=== PATIENT | female | born 1955 | race Caucasian/White ===

== ENCOUNTER 2018-03-13 15:00 | Emergency (ER) | payer OTHER, SELFPAY ==
[2018-03-13 15:09] VITALS: BP 118/67; PULSE 82; RESP 18; TEMP 36.8; O2SAT 95
[2018-03-13] MEDS: Tetracaine 0.5% 4 ML BTL (15:50)
--- NOTE | 2018-03-13 16:25 | ED.GENADUL ---
Disposition Clinical Impression: Corneal abrasion, right Disposition: HOME Condition: Fair Instructions: Corneal Abrasion (ED) Additional Instructions: Use erythromycin ointment as prescribed. Please follow-up with ophthalmology tomorrow. If you develop increased pain, pain around the eye, visual changes, fevers/chills or other new/worsening symptoms please seek care urgently once again. [facility] Forms: Work Release Medical Decision Making - Medical Decision Making Patient presents today with chief complaint of right eye pain. States that the pain came on suddenly when she awoke in the middle of the night. Feels that her eyes are chronically dry at night and associates this with the use of CPAP machine. States that she frequently has difficulty opening her eyes but typically does not have this much discomfort. On exam, patient was noted to be tearing. Conjunctiva is injected. Tetracaine drops were instilled which immediately resolved patient's discomfort. Extraocular movements are intact and were nonpainful. She is at her vision is slightly blurry. Nursing staff does note for the right eye to be 20/50 compared to 20/25 with correction on the contralateral side. Right eye was instilled with fluorescein dye exam with slit lamp. Patient has a corneal abrasion directly over the pupil. This was able to be seen without the need of the slit-lamp. It appears to be approximately 3 mm x 3 mm in diameter. No dendritic lesions. No punctate lesions. Patient does not have a rash. She is afebrile and nontoxic-appearing. This most consistent with corneal abrasion. Patient will be treated with erythromycin ointment. [facility] will contact [facility] tomorrow morning to schedule follow-up as soon as possible. We discussed new/worsening symptoms when to seek care urgently once again. All her questions and concerns were addressed she is in agreement with this plan. I also discussed the use of nighttime lubricating drops to prevent further damage to her eyes.. Advised that she discuss this further with ophthalmology tomorrow. History of Present Illness - General Chief complaint: EyeProblem Stated complaint: RT EYE PAIN Time Seen by Provider: 03/13/18 16:25 Source: patient, RN notes reviewed Mode of arrival: ambulatory Limitations: no limitations - History of Present Illness Initial comments: Patient is 62-year-old female presenting today with chief complaint of right eye pain. Patient reports she has difficulty with her eyes sticking at night. She associates this with the use of the CPAP and the air blowing on her eyes. States that she typically has to open her eyes very carefully. However, she awoke in the middle of the night last night and quickly opened her eyes. States that she had a sudden onset of pain in the right eye. Since then she has had eye discomfort, cranial injection and tearing. States that her vision has been slightly blurred. Patient does wear glasses at baseline. Does not wear any contacts. Denies any fevers or chills. Has had photophobia. Denies pain with movement of the eye. Denies having had issues like this historically. - Related Data Aspirin [Aspir 81] 81 mg PO DAILY tab-cap 10/19/12 Multivitamin [Multi-Vitamin Daily] 1 each PO DAILY 06/05/15 Acetaminophen 1,000 mg PO Q6H PRN tab-cap 09/29/16 Spironolactone 12.5 mg PO DAILY #45 tab-cap 05/31/17 Atorvastatin Calcium 10 mg PO DAILY #90 tab-cap 07/01/17 Nystatin Powder 60 GM [Mycostatin Powder] 1 tulio TP DAILY PRN #1 bottle 07/21/17 Losartan [Cozaar] 25 mg PO DAILY #90 tab-cap 09/06/17 Bupropion HCl [Bupropion HCl Sr] 150 mg PO BID #180 tab-cap 02/16/18 Metoprolol [Lopressor] 25 mg PO BID #180 tab-cap 02/18/18 Allergies Allergy/AdvReac Type Severity Reaction Status Date / Time No Known Allergies Allergy Unverified 07/21/17 15:08 Review of Systems Constitutional: no symptoms reported. denies: chills, fever Eyes: as per HPI ENT: denies: ear pain, congestion Respiratory: no symptoms reported Gastrointestinal: denies: nausea, vomiting Skin: denies: rash, lesions, change in color Neurological: denies: headache Past Medical History - Past Medical History Medical history: hypertension Currently, NICOLAS, neutropenia, cardiomegaly, essential tremor Psychiatric history: depression General Exam - General Limitations: no limitations General appearance: alert, in no apparent distress - Head Head exam: Present: atraumatic - Eye Eye exam: Present: PERRL, EOMI, conjunctival injection. Absent: normal apperance (Right eye is injected. The lid appears slightly swollen. EOMs intact. Pupils are equal round and reactive.), scleral icterus, nystagmus, periorbital tenderness Pupils: Present: normal accommodation - ENT ENT exam: Present: normal exam - Respiratory Respiratory exam: Absent: respiratory distress - Neurological Exam Neurological exam: Present: alert, normal gait - Psychiatric Psychiatric exam: Present: normal affect, normal mood - Skin Skin exam: Present: warm, dry, normal color Course Vital Signs - 24 hr 03/13/18 15:09 Temperature 36.8 C Pulse 82 Respiratory 18 Rate Blood Pressure 118/67 Pulse Oximetry 95
[2018-03-13] MEDS: Erythromycin Ophth Oint 3.5 GM TUBE 1 GM OD (16:28)
== END 2018-03-13 16:35 | disposition home or self-care (01) ==
LOC: ER 04-18 16:18
PROVIDERS: Emergency Provider Physician Assistant; PCP Nurse Practitioner Family
DX: S05.01XA Injury of conjunctiva and corneal abrasion without foreign body, right eye, initial encounter (principal); X58.XXXA Exposure to other specified factors, initial encounter; G47.33 Obstructive sleep apnea (adult) (pediatric); Z99.89 Dependence on other enabling machines and devices; I10 Essential (primary) hypertension
CPT/HCPCS: 99284; 99283

== ENCOUNTER 2019-02-09 15:22 | Outpatient (CLI) | payer OTHER, SELFPAY ==
[2019-02-09 15:48] LABS: HCT 39.8 % (36.0-46.0); HGB 13.2 g/dL (12.0-15.5); Mean Corp. HGB Concentration 33.2 g/dL (32.0-36.0); Mean Corpuscular Hemoglobin 32.9 pg (27.0-33.0); Mean Corpuscular Volume 99.3 fL (80-95); Mean Platelet Volume 8.4 fL (8.0-11.0); Platelet Count 250 x1000/uL (130-400); RBC 4.01 m/cumm (4.00-5.20); RBC Distribution Width 12.1 % (11.7-14.6); White Blood Cell Count 2.43 k/cumm (4.4-10.8)
[2019-02-09 16:37] LABS: ALT 23 U/L (12-78); AST 21 U/L (15-37); Albumin 3.5 g/dL (3.4-5.0); Alkaline Phosphatase 109 U/L (46-116); Anion Gap 12.8 mmol/L (3-11); BUN 12 mg/dL (7-18); Bilirubin, Total 0.2 mg/dL (0.2-1.0); CO2 24.2 mmol/L (21.0-32.0); CREATININE 0.92 mg/dL (0.55-1.02); Calcium 9.1 mg/dL (8.5-10.1); Calculated LDL 82 mg/dL; Chloride 106 mmol/L (98-107); Cholesterol 182 mg/dL (50-200); Glucose 143 mg/dL (70-100); HDL Cholesterol 51 mg/dL (40-60); Sodium 143 mmol/L (136-145); Total Protein 7.2 g/dL (6.4-8.2); Triglyceride 249 mg/dL (30-150)
[2019-02-09 18:10] LABS: Absolute Basophil Count 0.02 k/cumm (0.0-0.2); Absolute Lymphocyte Count 1.31 k/cumm (1.2-3.4); Absolute Monocyte Count 0.05 k/cumm (0.11-0.7); Absolute Neutrophil Count 1.04 k/cumm (1.2-6.7); Atypical Lymphocytes % 5; Diff Comment Manual Differential; RBC Morphology Normal
== END 2019-02-09 15:42 ==
PROVIDERS: PCP Nurse Practitioner Family; Visit Provider Nurse Practitioner Family
DX: E78.5 Hyperlipidemia, unspecified (principal); D70.9 Neutropenia, unspecified; I10 Essential (primary) hypertension
CPT/HCPCS: 36415; 80053; 80061; 83721; 85025

== ENCOUNTER 2019-05-01 08:02 | Outpatient (CLI) | payer OTHER, SELFPAY | END 2019-05-01 08:22 | PROVIDERS: PCP Nurse Practitioner Family; Visit Provider Internal Medicine Interventional Cardiology | DX: I42.9 Cardiomyopathy, unspecified (principal); I48.91 Unspecified atrial fibrillation; I10 Essential (primary) hypertension; R00.2 Palpitations; Z95.2 Presence of prosthetic heart valve | CPT/HCPCS: 93005; 93010 ==

== ENCOUNTER 2019-05-12 06:10 | Day surgery (SDC) | payer OTHER, SELFPAY ==
[2019-05-12 06:24] VITALS: BP 134/70; PULSE 91; RESP 18; TEMP 36.2; O2SAT 95
[2019-05-12] MEDS: Lactated Ringers 1,000 ML 80 ML IV (07:00)
--- NOTE | 2019-05-12 08:07 | PDOC.DSDIS_ITS ---
Discharge Plan Disposition Patient Disposition: HOME Condition: Good Discharge Details Reason For Visit: Colonoscopy Attending Provider: Helena Gregorio Primary Care Provider: Deborah Quiroga Home Meds and New Rx's Prescriptions: Continued amoxicillin 500 mg capsule 2,000 mg PO ONCE RF: 0 metronidazole 1 % gel 1 applic TP DAILY Qty: 60 RF: 0 losartan 25 mg tablet 25 mg PO DAILY Qty: 90 RF: 3 aspirin [Aspir-81] 81 MG tablet,delayed release (DR/EC) 81 mg PO DAILY RF: 0 multivitamin [Daily Multi-Vitamin] 1 EACH tablet 1 ea PO DAILY RF: 0 acetaminophen 500 MG tablet 1,000 mg PO Q6H PRN RF: 0 nystatin 60 GM powder 1 tulio Topical DAILY PRNQty: 1 RF: 3 spironolactone 25 mg tablet 12.5 mg PO DAILY Qty: 45 RF: 3 atorvastatin 10 mg tablet 10 mg PO DAILY Qty: 90 RF: 3 bupropion HCl (smoking deter) 150 mg tablet extended release 12 hr 150 mg PO BID Qty: 180 RF: 3 metoprolol tartrate 25 mg tablet 25 mg PO BID Qty: 180 RF: 3 Discharge Instructions Additional Instructions: Findings: One small polyp was removed. My office will send a letter with biopsy results. Diverticulosis was present. Follow up: Plan for colonoscopy in 5 years. Please call if you develop: fevers >101.5 Nausea or Vomiting Abdominal pain that is not transient DAY SURGERY UNIT POST COLONOSCOPY INSTRUCTIONS 1. Because there will be medication in your system for the next 24 hours, you may feel a little sleepy. Your coordination will be affected. Therefore: a. Do not drive or operate dangerous equipment for 24 hours. b. Do not drink alcohol beverages for 24 hours (not even beer). c. Plan to go home and rest for the day. 2. Generally there are no restrictions on your activity after a day or so has gone by, but you may feel a bit fatigued for a few days. 3 After you arrive home you may have a light meal and return to a normal diet as you can tolerate it without feeling sick to your stomach. 4. After surgery, you may feel pain or discomfort. This should be only transient, but if it persists please contact your doctor. 5. If there are any questions regarding the findings of your procedure, please feel free to contact your doctor. 6. If you are unable to contact your doctor with a problem, contact the [facility] at [phone]. 9. Continue all your regular medications unless directed otherwise. I understand the above instructions and have no questions. Signature of Patient or Responsible Adult Escort Date/Time Name of Responsible Adult Escort Signature of Nurse Date/Time Activity:: Activity as Tolerated Diet:: As Tolerated Discharge Orders Discharge Orders: Discharge Order (Routine); Ordered 05/12/19 Ordered By: Helena Gregorio DS: Diagnosis Discharge Diagnosis (1) Colon polyp: Status: Acute (2) Diverticulosis: Status: Acute
[2019-05-12 08:35] VITALS: BP 120/67; PULSE 78; RESP 15; TEMP 36.4; O2SAT 97
--- NOTE | 2019-05-12 08:45 | BOWEL_PTH ---
PATIENT: Purnima Thacker LOC: [facility] U#:[id number] AGE/SX: 63/F ROOM: RE05/12/[address]: Helena Gregorio MD : [id number] BED: DIS: 05/12/2019 SPEC #: [id number] RECD: 05/12/19 12:39 STATUS: PAUL REQ #: [id number] LUCIO: 05/12/19 08:[address]: Helena Gregorio DEPT: Surgical Specimen RECD BY: Jacki Fermin ENTERED: 05/12/19 12:40 SP TYPE: Bowel OTHR DR: Deborah Quiroga APRN Tissues: 1 - BIOPSY BOWEL Procedures: GROSS AND MICRO LEVEL 4 Comments: [id number]
--- NOTE | 2019-05-12 10:51 | COLE_ITS ---
DATE OF PROCEDURE: May 12, 2019 PREOPERATIVE DIAGNOSIS: History of colon polyps. POSTOPERATIVE DIAGNOSIS: 1. Cecal polyp. 2. Diverticulosis. PROCEDURE: Colonoscopy with cold forceps polypectomy. SURGEON: Helena Gregorio M.D. ANESTHESIA: General. INDICATIONS: This is a 63-year-old woman whose colonoscopy in 2013 was normal but incomplete. The s cope could not be advanced beyond the hepatic flexure. She reports a history of polyps with her firs t colonoscopy around age 50. She is asymptomatic and has no family history of colon cancer. PROCEDURE: She was placed in the left Johnson position. Propofol was titrated to sedation. Digital re ctal examination revealed no abnormalities with the exception of some prominent mixed hemorrhoids. T he scope was advanced to the cecum with a small amount of abdominal pressure required. There was a d iminutive polyp in the vicinity of the appendiceal orifice that was removed completely with a cold fo rceps. The scope was slowly withdrawn with scattered diverticulosis noted throughout the colon, but more prominently in the sigmoid region. The rectum was normal, including on retroflex view. She thom erated the procedure well and was stable to recovery. If the polyp is adenomatous she will need a fo llow-up colonoscopy again in five years. cc: Deborah Quiroga N.P.
== END 2019-05-12 09:10 | disposition home or self-care (01) ==
PROVIDERS: PCP Nurse Practitioner Family; Visit Provider Surgery
PROC: 0DJD8ZZ Inspection of Lower Intestinal Tract, Via Natural or Artificial Opening Endoscopic (ICD-10-PCS; CPT 45378; principal; 2019-05-12 07:30)
DX: Z12.11 Encounter for screening for malignant neoplasm of colon (principal); D12.0 Benign neoplasm of cecum; K57.30 Diverticulosis of large intestine without perforation or abscess without bleeding; K64.0 First degree hemorrhoids; I10 Essential (primary) hypertension; G47.33 Obstructive sleep apnea (adult) (pediatric)
CPT/HCPCS: 45380; 88305; J2250; J3010

== ENCOUNTER 2020-02-16 10:01 | Outpatient (CLI) | payer OTHER, SELFPAY ==
[2020-02-22 22:24] LABS: SARS-CoV-2 RNA Undetected (Undetected); SARS-CoV-2 Specimen Source Nasopharynx
== END 2020-02-16 10:21 ==
PROVIDERS: PCP Nurse Practitioner Family; Visit Provider Nurse Practitioner Family
DX: J02.9 Acute pharyngitis, unspecified (principal)
CPT/HCPCS: U0003

== ENCOUNTER 2020-02-28 02:56 | Outpatient (CLI) | payer OTHER, SELFPAY ==
[2020-02-28 07:51] LABS: Abs Immature Grans 0.01 10^3/uL (0.0-0.06); Absolute Basophil Count 0.01 10^3/uL (0.0-0.2); Absolute Eosinophil Count 0.01 10^3/uL (0.0-0.7); Absolute Lymphocyte Count 0.95 10^3/uL (1.2-3.4); Absolute Monocyte Count 0.29 10^3/uL (0.1-0.8); Absolute Neutrophil Count 2.24 10^3/uL (1.2-6.7); Basophils % 0.3; Eosinophils % 0.3; HCT 36.3 % (36.0-46.0); HGB 12.4 g/dL (11.2-15.7); Immature Grans % 0.3; Lymphocytes % 27.1; MCH 33.2 pg (27.0-33.0); MCHC 34.2 % (32.0-36.0); MCV 97.3 fL (80-95); MPV 8.6 fL (8.0-11.0); Monocytes % 8.3; Neutrophils % 63.7; Platelet Count 182 10^3/uL (130-400); RBC 3.73 10^6/uL (3.93-5.22); RDW 12.2 % (11.7-14.6); RDW-SD 43.5 fL; WBC 3.51 10^3/uL (4.4-10.8)
[2020-02-28 09:18] LABS: ALT 28 U/L (14-59); AST 19 U/L (15-37); Albumin 3.5 g/dL (3.4-5.0); Alkaline Phosphatase 111 U/L (46-116); Anion Gap 10.9 mmol/L (3-11); BUN 16 mg/dL (7-18); Bilirubin, Total 0.2 mg/dL (0.2-1.0); CO2 25.1 mmol/L (21.0-32.0); CREATININE 1.02 mg/dL (0.55-1.02); Calcium 8.9 mg/dL (8.5-10.1); Calculated LDL 79 mg/dL (<100); Chloride 106 mmol/L (98-107); Cholesterol 179 mg/dL (<200); Estimated GFR 54.56 (mL/min/1.73m2); Glucose 109 mg/dL (74-106); HDL Cholesterol 50 mg/dL (40-60); Potassium 4.2 mmol/L (3.5-5.1); Sodium 142 mmol/L (136-145); Total Protein 7.3 g/dL (6.4-8.2); Triglyceride 254 mg/dL (<150)
== END 2020-02-28 03:16 ==
PROVIDERS: PCP Nurse Practitioner Family; Visit Provider Nurse Practitioner Family
DX: I10 Essential (primary) hypertension; E78.5 Hyperlipidemia, unspecified
CPT/HCPCS: 36415; 80053; 80061; 85025

== ENCOUNTER 2020-03-27 01:02 | Outpatient (CLI) | payer OTHER, SELFPAY ==
--- NOTE | 2020-03-27 14:01 | DI.US_ITS ---
APPROVED REPORT EXAM: Comprehensive 2D, Doppler, and color-flow Echocardiogram Patient Location: Out-Patient Salesperson Hearing Aids: Ayleen Hopkins RDCS (AE) Indications: Cardiomyopathy, Aortic Stenosis, Bio AVR Other Information Study Quality: Adequate Conclusion Left Ventricle : The left ventricle is normal size. The left ventricular systolic function is normal. The left ventricular ejection fraction is within the normal range. Borderline concentric left ventri cular hypertrophy. There is normal LV segmental wall motion. The left ventricular diastolic function is normal. LVEF is 57%. Right Ventricle : The right ventricle is normal size. The right ventricular systolic function is norm al. The RVSP is 17.1mmHg. Atria : The left atrium size is normal. The right atrium size is normal. Aortic Valve : Bioprosthetic aortic valve is present. No aortic regurgitation is present. No hemodyna mically significant valvular aortic stenosis. Mitral Valve : Moderate mitral annular calcification. No evidence of mitral valve stenosis. Moderate mitral regurgitation. Great Vessels : The aortic root is normal in size. The ascending aorta is normal in size. IVC is norm al in size and collapses >50% with inspiration. Compared to study from 01/10/2018: There is no significant change. Wall motion Left Ventricle The left ventricle is normal size. The left ventricular systolic function is normal. The left ventric ular ejection fraction is within the normal range. Borderline concentric left ventricular hypertrophy . There is normal LV segmental wall motion. The left ventricular diastolic function is normal. There is no ventricular septal defect visualized. LVEF is 57%. Right Ventricle The right ventricle is normal size. The right ventricular systolic function is normal. The RVSP is 17 .1mmHg. Atria The left atrium size is normal. The right atrium size is normal. The interatrial septum is intact wit h no evidence for an atrial septal defect. Aortic Valve No hemodynamically significant valvular aortic stenosis. No aortic regurgitation is present. Bioprost hetic aortic valve is present. Mitral Valve Moderate mitral annular calcification. No evidence of mitral valve stenosis. Moderate mitral regurgit ation. Tricuspid Valve The tricuspid valve is normal in structure. There is no tricuspid valve stenosis. Trace tricuspid reg urgitation. Pulmonic Valve The pulmonary valve is normal in structure. There is no pulmonic valvular stenosis. Trace pulmonic re gurgitation. Great Vessels The aortic root is normal in size. The ascending aorta is normal in size. IVC is normal in size and c ollapses >50% with inspiration. Pericardium There is no pericardial effusion. 2D Dimensions IVSD d PLAX 1.08 cm F: 0.6-1.0 LV Vol A2C d MOD 64.9 mL LVPW d PLAX 1.06 cm F: 0.6 - 1.0 LV Vol A4C d MOD 74.5 mL LVID d PLAX 4.11 cm F: 3.8 - 5.2 LA vol/ BSA A2C s A-L 24.6 mL/m2 LVDs 3.00 cm F: 2.2 - 3.5 LA vol/ BSA A4C s A-L 20.3 mL/m2 Ao Root d 3.03 cm F: 2.7 - 3.3 LA Vol/ BSA Biplane s A-L 23.1 mL/m2 RA Area A4C 14.89 cm2 LA Area A4C s MOD 15.43 cm2 RA Vol/ BSA A4C s A-L 19.2 mL/m2 LA Area A2C s MOD 17.61 cm2 Ao Asc Diam d 3.09 cm F: 2.3 - 3.1 LV EF A4C MOD 55.2 % LV EF Teichholz 52.5 % LV EF A2C MOD 57.0 % LVEF (Samuel's) 54.50 % F: 54 - 74 LV EF Biplane MOD 54.5 % LV Volume 51.92 mL F: 46 - 106 SV 37.85 mL LV Volume Index 25.70 mL/m2 F: 29 - 61 SV Index 18.74 mL/m2 LV Vol Biplane MOD 69.5 mL FS 26.55 % M-Mode TAPSE 1.46 cm (M/F) >1.7 LV Diastology MV E' medial 0.053 (>0.07 m/s) E/A Ratio 0.8 LV E/e MED 13.00 (<14) MV E Vmax 0.69 (0.4-1.3 m/s) MV E' lateral 0.084 (>0.1 m/s) MV A Vmax 0.85 (0.4-1.3 m/s) LV E/e LAT 8.20 (<14) MV E/A Ratio 0.77 MV E/E' medial 13.04 MV E/E' lateral 8.23 Aortic Valve LVOT Area 3.23 cm2 AoV Area Vmax 1.51 cm2 LVOT Vmax 0.82 m/s AoV Area/ BSA (Vmax) 0.75 cm2/m2 LVOT Mean Donal. 0.49 m/s GEOVANNA Mean Donal. 1.20 cm2 LVOT Peak Grad 2.7 mmHg GEOVANNA Mean Donal. Index 0.60 cm2/m2 LVOT Mean Grad 1.1 mmHg LVOT VTI 0.132 m LVOT Diam s 2.00 cm AoV Vmax 1.75 m/s Velocity Ratio 0.46 AoV Mean Donal. 1.32 m/s AoV Peak Grad 12.3 mmHg LVOT SV 42.64 mL AoV Mean Grad 7.7 mmHg AoV VTI 0.318 m AoV Area VTI 1.34 cm2 AoV Area/ BSA (VTI) 0.66 cm/m2 Mitral Valve MV DT 271 (160-240 msec) MR Vmax 5.31 m/s MV PHT 78 msec MR VTI 1.622 m MV Area PHT 2.80 cm2 MR Peak Grad 112.9 mmHg MV VTI 0.214 m MR Mean Grad 80.6 mmHg MV Area VTI 1.99 (4.0-6.0 cm2) MR PISA Radius 0.42 cm MR EROA 0.07 cm2 MR Aliasing Velocity 0.35 m/s MR PISA 1.11 cm2 Pulmonary Valve PV Vmax 1.16 (0.5-1.5 m/s) RVOT Peak Gr. 1.46 mmHg PV Peak Grad 5.4 mmHg RVOT Mean Gr. 0.70 mmHg PV Mean Grad 2.2 mmHg RVOT VTI 0.114 m PV VTI 0.165 m RVOT Vmax 0.61 m/s Tricuspid Valve TR Peak Grad 14.0 mmHg TR Vmax 1.88 m/s RA Pressure 3.00 mmHg RVSP (TR) 17.1 mmHg
== END 2020-03-27 01:22 ==
PROVIDERS: PCP Nurse Practitioner Family; Visit Provider Internal Medicine Cardiovascular Disease
DX: I35.0 Nonrheumatic aortic (valve) stenosis (principal); I42.9 Cardiomyopathy, unspecified; Z95.3 Presence of xenogenic heart valve; I34.0 Nonrheumatic mitral (valve) insufficiency
CPT/HCPCS: 93306

== ENCOUNTER → 2021-02-28 11:27 | Outpatient (BNVA) | payer MEDICARE, BC, SELFPAY | PROVIDERS: PCP Nurse Practitioner Family; Referring Provider Nurse Practitioner Family; Visit Provider Internal Medicine Cardiovascular Disease | DX: I34.0 Nonrheumatic mitral (valve) insufficiency (principal); G25.0 Essential tremor; I10 Essential (primary) hypertension; Z95.4 Presence of other heart-valve replacement | CPT/HCPCS: 99214; 99213 ==

== ENCOUNTER 2021-04-29 03:54 | Outpatient (CLI) | payer MEDICARE, BC, SELFPAY ==
[2021-04-29 08:07] LABS: Abs Immature Grans 0.02 10^3/uL (0.0-0.06); Absolute Basophil Count 0.02 10^3/uL (0.0-0.2); Absolute Eosinophil Count 0.02 10^3/uL (0.0-0.7); Absolute Monocyte Count 0.29 10^3/uL (0.1-0.8); Basophils % 0.4; Eosinophils % 0.4; HCT 37.9 % (36.0-46.0); HGB 12.4 g/dL (11.2-15.7); Immature Grans % 0.4; Lymphocytes % 17.2; MCH 32.3 pg (27.0-33.0); MCHC 32.7 % (32.0-36.0); MCV 98.7 fL (80-95); MPV 8.9 fL (8.0-11.0); Monocytes % 6.2; Neutrophils % 75.4; Nucleated RBC 0 %; Platelet Count 195 10^3/uL (130-400); RBC 3.84 10^6/uL (3.93-5.22); RDW-SD 43.6 fL; WBC 4.65 10^3/uL (4.4-10.8)
[2021-04-29 08:22] LABS: Hemoglobin A1C 6.5 % (<5.7)
[2021-04-29 08:39] LABS: ALT 30 U/L (14-59); AST 22 U/L (15-37); Albumin 3.5 g/dL (3.4-5.0); Alkaline Phosphatase 105 U/L (46-116); Anion Gap 10.6 mmol/L (3-11); BUN 17 mg/dL (7-18); Bilirubin, Total 0.4 mg/dL (0.2-1.0); CO2 26.4 mmol/L (21.0-32.0); CREATININE 1.1 mg/dL (0.55-1.02); Calcium 8.8 mg/dL (8.5-10.1); Calculated LDL 89 mg/dL (<100); Chloride 104 mmol/L (98-107); Cholesterol 179 mg/dL (<200); Estimated GFR 49.85 (mL/min/1.73m2); Glucose 118 mg/dL (74-106); HDL Cholesterol 53 mg/dL (40-60); Potassium 4.3 mmol/L (3.5-5.1); Sodium 141 mmol/L (136-145); Total Protein 7.6 g/dL (6.4-8.2); Triglyceride 185 mg/dL (<150)
== END 2021-04-29 03:55 | disposition home or self-care (01) ==
LOC: LBO 03:54
PROVIDERS: PCP Nurse Practitioner Family; Visit Provider Nurse Practitioner Family
DX: I10 Essential (primary) hypertension (principal); E78.5 Hyperlipidemia, unspecified; D70.9 Neutropenia, unspecified; R73.01 Impaired fasting glucose
CPT/HCPCS: 36415; 80053; 80061; 83036; 85025

== ENCOUNTER 2021-05-09 09:04 | Emergency (ER) | payer MEDICARE, BC, SELFPAY ==
[2021-05-09 09:20] VITALS: BP 145/86; PULSE 90; RESP 20; TEMP 36; O2SAT 97
--- NOTE | 2021-05-09 09:30 | RT.EKG_ITS ---
APPROVED REPORT Exam: Resting ECG Reason for Exam: weakness Patient Location: E HR:83 bpm ECG Measurements Heart Rate 83 AXIS RI 157 P 34 QRSd 109 QRS 13 QT 374 T -33 QTc 440 Conclusion Sinus rhythm Low voltage, precordial leads. Nonspecific T abnormalities, diffuse leads.
--- NOTE | 2021-05-09 09:30 | DI.RAD_ITS ---
Exam(s) XR CHEST 2V PA LATERAL EXAM: XR CHEST 2V PA LATERAL CLINICAL HISTORY: weakness TECHNIQUE: COMPARISON: CR CHEST 2 VIEWS PA,LAT from 10/14/2016 FINDINGS: Heart is not enlarged. There is an aortic valve prosthesis. Lungs are generally clear. No pleural effusion. IMPRESSION: No evidence of acute process. RADIATION DOSE DELIVERED: Total DLP
--- NOTE | 2021-05-09 09:30 | DI.CT_ITS ---
Exam(s) CT HEAD - STROKE PROTOCOL EXAM: CT HEAD - STROKE PROTOCOL CLINICAL HISTORY: L leg weakness. TECHNIQUE: Imaging Protocol: Axial computed tomography images with coronal and sagittal reformatted images were created and reviewed COMPARISON: No exams were available for comparison FINDINGS: The ventricular system is normal in appearance. No evidence of acute intracranial hemorrhage, mass effect, or midline shift. The orbital structures are unremarkable. The temporal bone structures appear intact. Calvarium: Normal. Visualized Paranasal sinuses/Mastoids: Clear. IMPRESSION: Normal cranial CT. RADIATION DOSE DELIVERED: 692.4mGy.cm Total DLP 692.4mGy.cm Total DLP CTDIvol DATA REPOSITORY: All CT scans at this facility are submitted to the National Radiology Data Registry (NRDR) Dose Index Registry (DIR) with the [employer] (ACR). RADIATION OPTIMIZATION: All CT scans at this facility use at least one of these dose optimization te chniques: automated exposure control; mA and/or kV adjustment per patient size (includes targeted exa ms where dose is matched to clinical indication); or iterative reconstruction.
--- NOTE | 2021-05-09 09:44 | W.ED.GENAD ---
Discharge Plan Disposition Patient Disposition: HOME Condition: Stable Discharge Details Clinical Impression: Heavy sensation of lower extremity, Acute UTI Primary Care Provider: Deborah Quiroga ED Provider: Lamont Moya Home Meds and New Rx's Prescriptions: New cephalexin 500 mg capsule 500 mg PO BID Qty: 10 RF: 0 Continued amoxicillin 500 mg capsule 2,000 mg PO ONCE RF: 0 metronidazole 1 % gel 1 applic TP DAILY Qty: 60 RF: 0 aspirin [Aspir-81] 81 MG tablet,delayed release (DR/EC) 81 mg PO DAILY RF: 0 multivitamin [Daily Multi-Vitamin] 1 EACH tablet 1 ea PO DAILY RF: 0 acetaminophen 500 MG tablet 1,000 mg PO Q6H PRN RF: 0 nystatin 60 GM powder 1 tulio Topical DAILY PRNQty: 1 RF: 3 atorvastatin 10 mg tablet 10 mg PO DAILY Qty: 90 RF: 3 spironolactone 25 mg tablet 12.5 mg PO DAILY Qty: 45 RF: 3 losartan 25 mg tablet 25 mg PO DAILY Qty: 90 RF: 3 bupropion HCl [Wellbutrin SR] 150 mg tablet sustained-release 12 hr 150 mg PO BID Qty: 180 RF: 3 doxycycline hyclate 50 mg tablet 50 mg PO DAILY RF: 0 metronidazole 0.75 % gel 1 applic topical BID RF: 0 metoprolol tartrate 25 mg tablet 25 mg PO BID Qty: 180 RF: 3 Discharge Instructions Instructions: Urinary Tract Infection in Women (ED) Additional Instructions: CT imaging and laboratory values do not reveal any obvious emergent process. Your urinalysis does reveal leuk esterase and 10-20 white cells, will treat for mild UTI, Keflex as directed. Please watch for new or worsening symptoms and return to the ER for any concerns. As we discussed I strongly recommend reaching out your primary care provider later today to discuss your ER visit need for outpatient reevaluation. Additional imaging of your brain and/or lower back may be indicated for further evaluation of your symptoms. Medical Decision Making 65-year-old female, multiple comorbidities, presenting to the ER today complaining of a sensation of left leg heaviness. She states that she went to bed last night asymptomatic but did do a moderate amount of yard work which is atypical yesterday. Upon awaking this morning her left leg felt heavy, wobbly, but denies any leg discomfort, numbness, tingling, weakness, bowel or bladder incontinence, midline back tenderness. Patient states this morning in the shower she bent over and did feel a small amount of lower back pain. Clinically she appears well, nontoxic, neurologically intact. She denies any headache, visual changes, neck pain, chest pain, etc. She contacted the office of her primary care provider and they recommended coming to the ER for stroke work-up. Clinically she is neurologically intact, 5 out of 5 strength, ambulates without difficulty, there is no focal neurologic deficit. Will obtain a cardiac work-up, given the timeline I do believe a single troponin is reasonable and will obtain a CT of her head stroke protocol. Patient is comfortable with this plan and has no additional questions or concerns. Clinically again she is neurologically intact, afebrile, no clinical evidence of DVT or cauda equina. Normal pedal pulses and capillary refill. CT imaging of brain unremarkable per radiology. Patient was witnessed ambulating slowly but steadily without assistance to the restroom Remains neurologically intact. Laboratory values do not reveal any obvious emergent process. White blood cell count of 3.93 hemoglobin 12 hematocrit 36.5 platelet count 198. Electrolytes unremarkable, creatinine 1.1 with a GFR of 49.85 glucose 124 magnesium 1.8 LFTs unremarkable, troponin less than 0.05, urinalysis with trace leukoesterase, 10-20 white cells. Chest x-ray unremarkable Given her urination today on the way to the restroom, in the setting of leuk esterase, 10-20 white cells, will give 5-day treatment for UTI. Discussed work-up with patient. She continues to have a subjective sensation of a heaviness to her left leg otherwise is asymptomatic. Again 5 out of 5 strength, neurologically intact. We discussed that she may require outpatient MRI of her brain for further evaluation of her symptoms, however further evaluation of her lower back may also be indicated. Patient is comfortable discharge and has no additional questions or concerns. She plans to contact her primary care provider tomorrow to discuss her ongoing symptoms and need for outpatient reevaluation. Otherwise she will return to the ER for new or worsening symptoms This documentation was generated using [employer] system, please disregard any oddities of phrase or misspellings. Medical Records Medical records reviewed: Yes I reviewed the patient's medical records. Imaging Data Radiologic Study: Attestation: I personally reviewed and interpreted this imaging study as follows: Imaging: CT Scan Radiologist's impression: Exam(s) CT HEAD - STROKE PROTOCOL EXAM: CT HEAD - STROKE PROTOCOL CLINICAL HISTORY: L leg weakness. TECHNIQUE: Imaging Protocol: Axial computed tomography images with coronal and sagittal reformatted images were created and reviewed COMPARISON: No exams were available for comparison FINDINGS: The ventricular system is normal in appearance. No evidence of acute intracranial hemorrhage, mass effect, or midline shift. The orbital structures are unremarkable. The temporal bone structures appear intact. Calvarium: Normal. Visualized Paranasal sinuses/Mastoids: Clear. IMPRESSION: Normal cranial CT. Radiologic Study #2: Attestation: I personally reviewed and interpreted this imaging study as follows: Imaging: X-Ray Radiologist's impression: Exam(s) XR CHEST 2V PA LATERAL EXAM: XR CHEST 2V PA LATERAL CLINICAL HISTORY: weakness TECHNIQUE: COMPARISON: CR CHEST 2 VIEWS PA,LAT from 10/14/2016 FINDINGS: Heart is not enlarged. There is an aortic valve prosthesis. Lungs are generally clear. No pleural effusion. IMPRESSION: No evidence of acute process Lab Data Lab results reviewed: Yes I reviewed the patient's lab results. Labs: 05/09/21 10:16 Urine - Reflex from Ua Urine Culture - Pending Laboratory Tests Range/Units 05/09/21 05/09/21 05/09/21 09:56 09:56 10:16 WBC (4.4-10.8) 10^3/uL 3.93 L RBC (3.93-5.22) 10^6/uL 3.71 L Hgb (11.2-15.7) g/dL 12.0 Hct (36.0-46.0) % 36.5 MCV (80-95) fL 98.4 H MCH (27.0-33.0) pg 32.3 MCHC (32.0-36.0) % 32.9 RDW (11.7-14.6) % 12.0 Plt Count (130-400) 10^3/uL 198 MPV (8.0-11.0) fL 8.6 Immature Gran % 0.5 Neutrophils % 77.3 Lymphocytes % 15.5 Monocytes % 6.1 Eosinophils % 0.3 Basophils % 0.3 Nucleated RBC % % 0 Absolute Neutrophils (1.2-6.7) 10^3/uL 3.04 Absolute Lymphocytes (1.2-3.4) 10^3/uL 0.61 L Absolute Monocytes (0.1-0.8) 10^3/uL 0.24 Absolute Eosinophils (0.0-0.7) 10^3/uL 0.01 Absolute Basophils (0.0-0.2) 10^3/uL 0.01 Sodium (136-145) mmol/L 138 Potassium (3.5-5.1) mmol/L 4.3 Chloride (98-107) mmol/L 104 Carbon Dioxide (21.0-32.0) mmol/L 25.5 Anion Gap (3-11) mmol/L 8.5 BUN (7-18) mg/dL 13 Creatinine (0.55-1.02) mg/dL 1.1 H Estimated GFR/1.73 m2 (mL/min/1.73m2) 49.85 Glucose (74-106) mg/dL 124 H Calcium (8.5-10.1) mg/dL 9.3 Magnesium (1.8-2.4) mg/dL 1.8 Total Bilirubin (0.2-1.0) mg/dL 0.4 AST (15-37) U/L 27 ALT (14-59) U/L 32 Alkaline Phosphatase (46-116) U/L 97 Troponin I (<0.06) ng/mL < 0.05 Total Protein (6.4-8.2) g/dL 8.0 Albumin (3.4-5.0) g/dL 3.5 Urine Color (Yellow) Yellow Urine Clarity (Clear) Clear Urine pH (5-8) 5.5 Ur Specific [place] (1.005-1.025) 1.015 Urine Protein (Negative) mg/dL Negative Urine Ketones (Negative) mg/dL Negative Urine Blood (Negative) Negative Urine Nitrite (Negative) Negative Urine Bilirubin (Negative) Negative Urine Urobilinogen (Up TO 0.2) EU/dL 0.2 Ur Leukocyte Esterase (Negative) Trace H Urine RBC (0-2) HPF Negative Urine WBC (0-5) HPF 10-20 H Ur Epithelial Cells (Negative) HPF Few Urine Crystals (Negative) HPF Negative Urine Bacteria (Negative) HPF Moderate Urine Casts (Negative) LPF Negative Urine Mucus (Negative) Negative Urine Other (Negative) Negative Ur Culture Indicated? Yes Urine Glucose (Negative) mg/dL Negative ECG Data Attestation: I personally reviewed and interpreted this ECG (s) as follows: Interpretation: Please see official report by Dr. Bragg. Sinus rhythm, ventricular rate of 83. No STEMI. Diffuse nonspecific T wave abnormalities HPI General Mode of arrival: ambulatory. Date/Time Provider Initiated Documentation: 05/09/21 09:12. Limitations to Documentation: no limitations. Information obtained by: patient. HPI Narrative: This is a 65-year-old female, past medical history that includes diabetes, hyperlipidemia, cardiomyopathy, depression, hypertension, essential tremor, aortic valve replacement, sleep apnea, obesity, presenting to the ER today for what she describes as left leg heaviness. Patient states that yesterday she raked leaves and did yard work all day which is very atypical for her, lifting, turning, bending, repetitive motion but no obvious trauma. Went to bed last night at around 1130 asymptomatic, reports awaking this morning around 630 feeling like her left leg was heavy but denies any true numbness, tingling, weakness. Patient states that upon standing her leg felt wobbly, she was concerned that she may fall, it took her longer to walk to the restroom and it typically does, she was unable to hold her urine because up with the way to the restroom. She contacted the office of her primary care provider and they recommended coming to the ER for evaluation of potential stroke. Patient denies recent illness or trauma. She denies headache, visual changes, neck pain, facial weakness, chest pain, shortness of breath, abdominal pain, nausea, vomiting, bowel or bladder retention or incontinence, numbness, tingling, weakness, in her extremities, or specifically in her saddle region. She does admit to a baseline essential tremor of the left hand which she states has been progressively worse over the past year. Patient denies history of TIA or CVA, is not anticoagulated. Patient states that this morning while taking a shower with specific movement she did notice a small amount of lower back pain but now cannot reproduce this. Related Data Home Medications Medication Instructions Recorded Confirmed aspirin [Aspir-81] 81 mg PO DAILY tab-cap 10/19/12 05/09/21 multivitamin [Daily Multi-Vitamin] 1 ea PO DAILY 06/05/15 05/09/21 acetaminophen 1,000 mg PO Q6H PRN tab-cap 09/29/16 05/09/21 nystatin 1 tulio TOPICAL DAILY PRN #1 bottle 07/21/17 05/09/21 metronidazole 1 % topical gel 1 applic TP DAILY #60 gm 08/17/18 05/09/21 amoxicillin 500 mg capsule 2,000 mg PO ONCE cap 09/28/18 05/09/21 atorvastatin 10 mg tablet 10 mg PO DAILY #90 tab 05/30/20 05/09/21 spironolactone 25 mg tablet 12.5 mg PO DAILY #45 tab-cap 05/31/20 05/09/21 losartan 25 mg tablet 25 mg PO DAILY #90 tab-cap 07/30/20 05/09/21 bupropion HCl 150 mg tablet,12 hr 150 mg PO BID #180 tab-cap 08/26/20 05/09/21 sustained-release doxycycline hyclate 50 mg tablet 50 mg PO DAILY 11/11/20 05/09/21 metronidazole 0.75 % topical gel 1 applic TOPICAL BID 11/11/20 05/09/21 metoprolol tartrate 25 mg tablet 25 mg PO BID #180 tab-cap 02/20/21 05/09/21 cephalexin 500 mg PO BID #10 cap 05/09/21 Previous Rx's Medication Instructions Recorded metronidazole 1 % topical gel 1 applic TP DAILY #60 gm 08/17/18 atorvastatin 10 mg tablet 10 mg PO DAILY #90 tab 05/30/20 spironolactone 25 mg tablet 12.5 mg PO DAILY #45 tab-cap 05/31/20 losartan 25 mg tablet 25 mg PO DAILY #90 tab-cap 07/30/20 bupropion HCl 150 mg tablet,12 hr 150 mg PO BID #180 tab-cap 08/26/20 sustained-release metoprolol tartrate 25 mg tablet 25 mg PO BID #180 tab-cap 02/20/21 cephalexin 500 mg PO BID #10 cap 05/09/21 Allergies Allergy/AdvReac Type Severity Reaction Status Date / Time No Known Allergies Allergy Verified 05/09/21 09:24 General Stated Complaint: GenMedical KELLY: 3 Review of Systems Constitutional Constitutional: Denies fatigue, Denies fever(s), Denies headache(s) and Denies weakness Eyes Eyes: Denies change in vision ENT Ears, Nose, Mouth, and Throat: Denies headache(s) and Denies neck pain Cardiovascular Cardiovascular: Denies chest pain and Denies dyspnea Respiratory Respiratory: Denies cough and Denies dyspnea Gastrointestinal Gastrointestinal: Denies abdominal pain, Denies constipation, Denies fecal incontinence, Denies nausea and Denies vomiting Genitourinary Genitourinary: Denies dysuria Musculoskeletal Musculoskeletal: Reports back pain, Denies arthralgias, Denies neck pain, Denies numbness, Denies stiffness and Denies tingling Integumentary/Breasts Skin/Breast: Denies rash Neurologic Neurologic: Denies headache(s), Denies numbness, Denies tingling and Denies weakness Endocrine Endocrine: Denies fatigue [facility] Medical History Candidate for statin therapy due to risk of future cardiovascular event (12/13/15) 11/2016 labwork: Pt already on moderate intensity statin therapy --> continue current Rx Cardiomyopathy (01/23/14) [place]ology? [place] 12[place] [facility] [place] [employer] 12/2013 Cardiac cath ordered by Indra 08/22/14 echo: LVEF mildly reduced at 45-50% with moderate LVH & severe aortic stenosis 10/09/2016 echo: LVEF 45-50%, s/p aortic valve repair Chronic idiopathic neutropenia (07/20/16) [place] w[place] [facility] [place]/18/2017 Heme OV note: Go to ER if fevers. If neutropenic during illness, advised use of GCSF. If pt starts to develop infections, they plan to reconsider regular GCSF. Colon polyp Depressive disorder (06/28/13) Long-term Wellbutrin RX Counseling Diverticulosis Essential hypertension (09/19/12) Improved following aortic valve replacement Essential tremor (06/28/13) Hyperlipidemia, unspecified Obesity (06/28/13) 2014: [place] [facility] [place]/2014: Updated plan to work with Noreen Nassar NICOLAS (obstructive sleep apnea) (05/28/14) Sleep study 2013 CPAP , re-eval 09/21/19 Rosacea Severe aortic stenosis S/p AVR 09/21/2016 Type 2 diabetes mellitus (~04/2021) Surgical History Biopsy of breast s/p mammogram; benign Cholecystectomy (06/29/07) Colonoscopy - IV Sedation (10/23/13) Colonoscopy - MAC History of aortic valve replacement (10/14/16) [place]21[place] [facility] [place] [place] bovine aortic valve replacement and aortoplasty for supravalvular stenosis Replacement of aortic valve (09/21/16) [place]oplasty [place]val[place]ular [place] [facility] [place] History Brother Diabetes Heart disease Hypertension Mother Heart disease Father Heart disease Sister Hypertension Social History Smoking/Tobacco Use Status: Never Smoking risk assessment performed?: Yes Alcohol Intake: never Drug use: Never Substance use type: does not use Caregiver/Support person: No Communication Needs: None Do you need help understanding health information?: Rarely 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 Pets and animals: No Do you think of yourself as: straight/heterosexual Current gender identity: female What is your relationship status?: never How often do you talk on the phone with friends or family?: three or more times per week How often do you get together with friends or relatives?: twice per week How often do you attend gnosticism or mosque services?: 1-3 times per year Do you belong to any clubs or organized social groups?: yes Panel score (0-1 are the most socially isolated patients): 2 What type of physical activity do you participate in: none Yadira/Holiness: Confucianism Special yadira needs: No Seatbelt use: always Helmet use: Yes Drive intox or ride w/intox lokie driver: No Water heater temp set <120 deg: Yes Working smoke detector in home: Yes Fire extinguisher in home: Yes Carbon monox detector in home: Yes Firearms in home: No Do you feel safe at home: Yes Exam Const General: cooperative, healthy appearing, comfortable and no acute distress Orientation: alert, awake and oriented x3 HENMT Head: normal to inspection, normocephalic and atraumatic Face and sinus: normal facial exam Mouth: moist mucous membranes Throat: posterior oropharynx normal Eyes General: appearance normal, both eyes and all related structures Alignment and Position: alignment normal Periorbital: periorbital findings normal Eyelids: eyelids normal Conjunctivae: conjunctivae normal Sclera: sclerae normal Cornea: corneas normal Pupils: PERRL EOM: EOM intact bilaterally Direct ophthalmoscopy: normal light reflex Neck Neck: normal visual inspection, full ROM, no meningeal signs, trachea midline, supple and nontender Resp Effort & Inspection: normal respiratory effort and able to speak in complete sentences Auscultation: clear to auscultation bilaterally Cardio Rate: regular rate Rhythm: regular rhythm GI Inspection: normal to inspection Palpation: soft, not firm, no guarding, no pulsatile masses and nontender Auscultation: normal bowel sounds Back/Spine/Pelvis Back: no CVA tenderness and No back tenderness Skin General skin exam: no rashes or lesions noted Neuro General: patient alert, patient awake, patient oriented x3, moves all extremities and no focal motor deficits Cranial Nerves: CN's II-XI intact bilaterally Cognition: normal cognition Speech: speech normal Gait: normal gait Motor: muscle tone normal throughout, strength 5/5 throughout, no pronator drift, no fasciculations and tremor (Mild left hand, baseline per Pt) Sensory Exam: no sensory deficits noted Coordination: Does not sway with eyes open Extrem General: normal to inspection, full ROM, capillary refill normal, no pedal edema, no calf tenderness, normal gait and other (Left leg negative Hortencia) Other: Straight leg raise negative bilaterally Psych Appearance: grossly normal Mental Status: mental status grossly normal Course Vital Signs Vital signs: Vital Signs Temperature 36.0 C L 05/09/21 09:20 Pulse 90 05/09/21 09:20 Respiratory Rate 20 05/09/21 09:20 Blood Pressure 145/86 H 05/09/21 09:20 Pulse Oximetry 97 05/09/21 09:20 Temperature 36.0 C L 05/09/21 09:20 Temperature Source Skin 05/09/21 09:20 Pulse 90 05/09/21 09:20 Respiratory Rate 20 05/09/21 09:20 Blood Pressure 145/86 H 05/09/21 09:20 Blood Pressure Position Sitting 05/09/21 09:20 Pulse Oximetry 97 05/09/21 09:20 Oxygen Delivery Method Room Air 05/09/21 09:20 Oxygen Flow Rate 0 05/09/21 09:20 Pain Level 0 05/09/21 09:20
[2021-05-09 09:45] VITALS: BP 128/90; PULSE 80; RESP 18; O2SAT 96
[2021-05-09 10:01] VITALS: RESP 16
[2021-05-09 10:08] LABS: Abs Immature Grans 0.02 10^3/uL (0.0-0.06); Absolute Basophil Count 0.01 10^3/uL (0.0-0.2); Absolute Eosinophil Count 0.01 10^3/uL (0.0-0.7); Absolute Lymphocyte Count 0.61 10^3/uL (1.2-3.4); Absolute Monocyte Count 0.24 10^3/uL (0.1-0.8); Absolute Neutrophil Count 3.04 10^3/uL (1.2-6.7); Basophils % 0.3; Eosinophils % 0.3; HCT 36.5 % (36.0-46.0); Immature Grans % 0.5; Lymphocytes % 15.5; MCH 32.3 pg (27.0-33.0); MCHC 32.9 % (32.0-36.0); MCV 98.4 fL (80-95); MPV 8.6 fL (8.0-11.0); Monocytes % 6.1; Neutrophils % 77.3; Nucleated RBC 0 %; Platelet Count 198 10^3/uL (130-400); RBC 3.71 10^6/uL (3.93-5.22); RDW-SD 43.8 fL; WBC 3.93 10^3/uL (4.4-10.8)
[2021-05-09 10:30] VITALS: BP 141/85; PULSE 91; RESP 18; O2SAT 96
[2021-05-09 10:31] LABS: ALT 32 U/L (14-59); AST 27 U/L (15-37); Albumin 3.5 g/dL (3.4-5.0); Alkaline Phosphatase 97 U/L (46-116); Anion Gap 8.5 mmol/L (3-11); BUN 13 mg/dL (7-18); Bilirubin, Total 0.4 mg/dL (0.2-1.0); CO2 25.5 mmol/L (21.0-32.0); CREATININE 1.1 mg/dL (0.55-1.02); Calcium 9.3 mg/dL (8.5-10.1); Chloride 104 mmol/L (98-107); Estimated GFR 49.85 (mL/min/1.73m2); Glucose 124 mg/dL (74-106); Magnesium 1.8 mg/dL (1.8-2.4); Potassium 4.3 mmol/L (3.5-5.1); Sodium 138 mmol/L (136-145)
[2021-05-09 10:32] LABS: Troponin I < 0.05 ng/mL (<0.06)
[2021-05-09 10:33] LABS: Bilirubin Negative (Negative); Blood Negative (Negative); Clarity Clear (Clear); Glucose Negative (Negative); Ketones Negative (Negative); Leukocyte Esterase Trace (Negative); Nitrite Negative (Negative); Specific Gravity 1.015 (1.005-1.025); Urobilinogen 0.2 EU/dL (Up TO 0.2); pH 5.5 (5-8)
[2021-05-09 10:53] LABS: Bacteria Moderate HPF (Negative); C & S Indicated? Yes; Casts Negative LPF (Negative); Crystals Negative HPF (Negative); Epithelial Cells Few HPF (Negative); Mucus Negative (Negative); Other Cells Negative (Negative); RBC Negative HPF (0-2)
[2021-05-09 11:27] VITALS: BP 131/78; PULSE 84; RESP 16; O2SAT 96
== END 2021-05-09 11:45 | disposition home or self-care (01) ==
PROVIDERS: Emergency Provider Physician Assistant; PCP Nurse Practitioner Family
DX: N39.0 Urinary tract infection, site not specified (principal); R29.898 Other symptoms and signs involving the musculoskeletal system; B96.89 Other specified bacterial agents as the cause of diseases classified elsewhere
CPT/HCPCS: 36415; 80053; 93005; 99285; 70450; 71046; 81003; 81015; 83735; 84484; 85025; 87086; 93010; 99284

== ENCOUNTER 2021-05-28 04:35 | Outpatient (CLI) | payer MEDICARE, BC, SELFPAY | END 2021-05-28 04:36 | disposition home or self-care (01) | LOC: LBO 04:35 | PROVIDERS: PCP Nurse Practitioner Family; Visit Provider Nurse Practitioner Family | DX: G25.0 Essential tremor (principal) | CPT/HCPCS: 82043; 82570; 84443 ==

== ENCOUNTER 2021-06-03 13:33 | Outpatient (REF) | payer MEDICARE, BC, SELFPAY ==
[2021-06-03 18:02] LABS: COMMENT (LAB VIEW ONLY) 121.85 mg/dL; Microalb ug/mg Crea 5.7 ug/mg Cr
== END 2021-06-03 13:34 | disposition home or self-care (01) ==
LOC: LBN 13:33
PROVIDERS: PCP Nurse Practitioner Family; Visit Provider Nurse Practitioner Family
DX: E11.9 Type 2 diabetes mellitus without complications (principal)
CPT/HCPCS: 82043; 82570

== ENCOUNTER 2021-06-18 00:54 | Outpatient (CLI) | payer MEDICARE, BC, SELFPAY ==
--- NOTE | 2021-06-18 07:15 | DI.US_ITS ---
Exam(s) US RENAL EXAM: US RENAL CLINICAL HISTORY: ?CKD (r/o other cause for renal insufficiency),n18.9 TECHNIQUE: Ultrasound performed using standard protocol. COMPARISON: CT CHEST ABD PELVIS WITH CONTRAST from 06/19/2016 US US ECHOCARDIOGRAM from 03/27/2020 FINDINGS: Kidneys are normal in size and shape. Right kidney measures 10.9 x 4.8 x 5.9 cm and left kidney [place] ures 9.2 x 4.7 x 3.9 cm. There is no evidence of hydronephrosis or renal mass. There is a 6 millimeter focus increased echoge nicity in the right renal midpole. There is little if any posterior acoustic shadowing and there is no twinkle artifact. This may represent a small nonshadowing stone versus angiomyolipoma. No other evidence of nephrolithiasis. Urinary bladder is unremarkable in appearance with pre and postvoid urinary bladder volume measuremen ts 111 cc and 0 cc. Ureteral jets were nonvisualized. IMPRESSION: Question right renal midpole calculus versus angiomyolipoma. If clinically indicated, additional shila luation with CT may be considered. DATA REPOSITORY:
== END 2021-06-18 01:14 ==
PROVIDERS: PCP Nurse Practitioner Family; Visit Provider Nurse Practitioner Family
DX: N18.9 Chronic kidney disease, unspecified (principal); N28.89 Other specified disorders of kidney and ureter
CPT/HCPCS: 76770

== ENCOUNTER 2021-12-17 03:31 | Outpatient (CLI) | payer MEDICARE, BC, SELFPAY ==
[2021-12-17 14:39] LABS: Anion Gap 7.3 mmol/L (3-11); BUN 15 mg/dL (7-18); CO2 28.7 mmol/L (21.0-32.0); Calcium 9.1 mg/dL (8.5-10.1); Chloride 106 mmol/L (98-107); Estimated GFR 55.47 (mL/min/1.73m2); Glucose 117 mg/dL (74-106); Potassium 3.8 mmol/L (3.5-5.1); Sodium 142 mmol/L (136-145)
[2021-12-17 15:08] LABS: Creatine Kinase 83 U/L (26-192)
[2021-12-18 10:42] LABS: Lyme Ab w Rflx to Lyme Confirm Negative (Negative)
[2021-12-18 16:11] LABS: ANA Interpretation Positive (Negative)
[2021-12-20 01:16] LABS: Anaplasma phagocytophilum Negative (Negative); B. miyamotoi PCR Negative (Negative); Babesia divergens/MO-1 Negative (Negative); Babesia duncani Negative (Negative); Babesia microti Negative (Negative); Ehrlichia chaffeensis Negative (Negative); Ehrlichia ewingii/canis Negative (Negative); Ehrlichia muris eauclairensis Negative (Negative)
== END 2021-12-17 03:32 | disposition home or self-care (01) ==
LOC: LBO 03:31
PROVIDERS: PCP Nurse Practitioner Family; Visit Provider Nurse Practitioner
DX: N18.9 Chronic kidney disease, unspecified (principal); E11.9 Type 2 diabetes mellitus without complications; E78.5 Hyperlipidemia, unspecified; R20.9 Unspecified disturbances of skin sensation; R53.83 Other fatigue; M25.59 Pain in other specified joint
CPT/HCPCS: 36415; 80048; 80053; 80061; 82550; 87798; 82043; 82570; 85025; 86038; 86618

== ENCOUNTER → 2022-01-05 02:37 | Outpatient (CLI) | payer MEDICARE, BC, SELFPAY ==
--- NOTE | 2022-01-05 08:30 | DI.US_ITS ---
Exam(s) US RENAL EXAM: US RENAL CLINICAL HISTORY: follow R renal lesion; stone vs. angiomyolipoma,renal insufficiency,n28.9. TECHNIQUE: Gaines scale, color and spectral Doppler were used. COMPARISON: CT CHEST ABD PELVIS WITH CONTRAST from 06/19/2016 US US RENAL from 06/18/2021 FINDINGS: Renal size in cm: Right: 11 left: 9.3 Echogenicity: Normal Hydronephrosis: No Cyst or mass: No change in the 7 millimeter maximal dimension circumscribed hyperechoic lesion in the mid right renal cortex. No shadowing. Nephrolithiasis: No Bladder:Normal Prevoid vol:21 cc Postvoid vol:Patient unable to void IMPRESSION: Status stable small hyperechoic lesion right kidney, no suspicious features. It does not have appear ance of a stone. Could represent an angiomyolipoma DATA REPOSITORY:
== END ==
PROVIDERS: PCP Nurse Practitioner Family; Visit Provider Nurse Practitioner Family
DX: N28.89 Other specified disorders of kidney and ureter (principal)
CPT/HCPCS: 76770

== ENCOUNTER → 2022-01-30 11:16 | Outpatient (BNVA) | payer MEDICARE, BC, SELFPAY | PROVIDERS: PCP Nurse Practitioner Family; Visit Provider Internal Medicine Cardiovascular Disease | DX: I10 Essential (primary) hypertension (principal); G25.0 Essential tremor; Z95.2 Presence of prosthetic heart valve | CPT/HCPCS: 99214; 99213 ==

== ENCOUNTER → 2022-04-08 14:02 | Outpatient (BNVA) | payer MEDICARE, BC, SELFPAY | PROVIDERS: PCP Nurse Practitioner Family; Referring Provider Nurse Practitioner; Visit Provider Nurse Practitioner Adult Health | DX: G56.03 Carpal tunnel syndrome, bilateral upper limbs (principal) | CPT/HCPCS: 95911; 99203; 99214 ==

== ENCOUNTER → 2022-04-21 01:05 | Outpatient (CLI) | payer MEDICARE, BC, SELFPAY ==
--- NOTE | 2022-04-21 07:30 | DI.US_ITS ---
Exam(s) US SOFT TISSUE HEAD OR NECK EXAM: US SOFT TISSUE HEAD OR NECK CLINICAL HISTORY: ?R enlarged lymph node,CERVICAL LYMPHADENOPATHY,R59.0. TECHNIQUE: Ultrasound was performed using standard protocol. COMPARISON: US US RENAL from 01/05/2022 FINDINGS: Ultrasound evaluation of the area of clinical concern in the right-side of the neck adjacent to the t rachea was performed. This apparently at the mid neck level. Images reveal no ominous mass nor cyst. There is a small benign-appearing 5 millimeter lymph node. Incidentally noted on the ipsilateral side of the neck Are 3 small nodules in the right thyroid lobe. One of these is a small 4 millimeter colloid cyst. T he other are solid nodules with the largest measuring 0.7 x 0.5 x 0.5 cm, this towards the inferior a spect of the right thyroid lobe. This appears to be a TiRads 4 nodule (5 points). Recommend complet e thyroid ultrasound. IMPRESSION: 1. No obvious significant focal ultrasound abnormality in the area of this patient's apparent right p aratracheal pain. The only visible finding at this level on ultrasound was a benign-appearing 5 mill imeter small lymph node 2. Three findings in the right thyroid lobe is described above. Recommend complete thyroid ultraso und exam. DATA REPOSITORY:
== END ==
PROVIDERS: PCP Nurse Practitioner Family; Visit Provider Nurse Practitioner Family
DX: R59.0 Localized enlarged lymph nodes (principal)
CPT/HCPCS: 76536

== ENCOUNTER 2022-04-29 03:19 | Outpatient (CLI) | payer MEDICARE, BC, SELFPAY ==
[2022-04-29 08:04] LABS: Abs Immature Grans 0.01 10^3/uL (0.0-0.06); Absolute Basophil Count 0.01 10^3/uL (0.0-0.2); Absolute Eosinophil Count 0.01 10^3/uL (0.0-0.7); Absolute Lymphocyte Count 0.56 10^3/uL (1.2-3.4); Absolute Monocyte Count 0.35 10^3/uL (0.1-0.8); Absolute Neutrophil Count 1.91 10^3/uL (1.2-6.7); Basophils % 0.4; Eosinophils % 0.4; Immature Grans % 0.4; Lymphocytes % 19.6; MCH 32.6 pg (27.0-33.0); MCHC 33.3 % (32.0-36.0); MCV 98 fL (80-95); MPV 8.6 fL (8.0-11.0); Monocytes % 12.3; Neutrophils % 66.9; Platelet Count 172 10^3/uL (130-400); RBC 3.37 10^6/uL (3.93-5.22); RDW 12.6 % (11.7-14.6); WBC 2.85 10^3/uL (4.4-10.8)
[2022-04-29 09:01] LABS: ALT 22 U/L (14-59); AST 28 U/L (15-37); Albumin 3.6 g/dL (3.4-5.0); Alkaline Phosphatase 76 U/L (46-116); Anion Gap 11.4 mmol/L (3-11); BUN 22 mg/dL (7-18); Bilirubin, Total 0.5 mg/dL (0.2-1.0); C-Reactive Protein 0.32 mg/dL (0.0-0.3); CO2 24.6 mmol/L (21.0-32.0); CREATININE 1.1 mg/dL (0.55-1.02); Calcium 9.8 mg/dL (8.5-10.1); Chloride 106 mmol/L (98-107); Estimated GFR 55.42 (mL/min/1.73m2); Glucose 98 mg/dL (74-106); Potassium 3.8 mmol/L (3.5-5.1); Sodium 142 mmol/L (136-145); TSH (W/Ref FT4) 3.33 uIU/mL (0.36-3.74); Vitamin B12 361 pg/mL (193-986)
[2022-04-30 12:28] LABS: SS-A Antibody 1.5 Units (<20.0); SS-B (La) Ab, IgG 1.6 Units (<20.0)
== END 2022-04-29 03:20 | disposition home or self-care (01) ==
LOC: LBO 03:20
PROVIDERS: PCP Nurse Practitioner Family; Visit Provider Nurse Practitioner Family
DX: R53.83 Other fatigue; R76.8 Other specified abnormal immunological findings in serum
CPT/HCPCS: 36415; 80053; 84630; 82607; 84443; 85025; 86140; 86235

== ENCOUNTER → 2022-04-30 03:33 | Outpatient (CLI) | payer MEDICARE, BC, SELFPAY ==
--- NOTE | 2022-04-30 08:30 | DI.US_ITS ---
Exam(s) US THYROID EXAM: US THYROID CLINICAL HISTORY: thyroid nodules seen on soft tissue US,e04.1. TECHNIQUE: Ultrasound thyroid performed using standard protocol. COMPARISON: No exams were available for comparison FINDINGS: ISTHMUS: 3.5 mm. There is a 4 mm cyst in the isthmus. No follow-up is recommended. RIGHT LOBE: Size: 4.6 x 1.6 x 1.3 cm Echogenicity: Normal. Vascularity: Normal. Nodules: There are 3 nodules seen in the right lobe. There is a 0.5 cm cyst. No follow-up is recomm ended. There is a 0.6 x 0.5 x 0.4 cm mixed cystic and solid hypoechoic nodule. No echogenic foci ar e seen and it has smooth margins. This is consistent with a TI rads level 3 nodule. Due to its size , no follow-up is recommended. There is a 0.5 cm mixed cystic and solid hypoechoic nodule in the low er pole. This is also TIRADS left 3 nodule. Due to its size, no follow-up is recommended. LEFT LOBE: Size: 4.2 x 1.4 x 1.3 cm Echogenicity: Normal. Vascularity: Normal. Nodules: There is a 0.5 x 0.4 x 0.3 cm mixed cystic and solid hypoechoic nodule in the left lobe. No internal echogenic foci are seen. It is consistent with a TIRADS level 3. Due to its size, no foll ow-up is recommended. OTHER FINDINGS: None. IMPRESSION: Multinodular thyroid gland. No suspicious nodules warranting follow-up are identified. DATA REPOSITORY:
== END ==
PROVIDERS: PCP Nurse Practitioner Family; Visit Provider Nurse Practitioner
DX: E04.1 Nontoxic single thyroid nodule (principal)
CPT/HCPCS: 36415; 84630; 76536

== ENCOUNTER 2022-04-30 04:17 | Outpatient (CLI) | payer MEDICARE, BC, SELFPAY ==
[2022-05-01 16:28] LABS: Zinc, S 68 mcg/dL (60-106)
== END 2022-04-30 04:18 | disposition home or self-care (01) ==
LOC: LBO 04:17
PROVIDERS: PCP Nurse Practitioner Family; Visit Provider Nurse Practitioner Family
DX: E46 Unspecified protein-calorie malnutrition (principal); E60 Dietary zinc deficiency; R43.2 Parageusia; R53.83 Other fatigue
CPT/HCPCS: 36415; 84630

== ENCOUNTER 2022-05-05 02:01 | Outpatient (CLI) | payer MEDICARE, BC, SELFPAY ==
[2022-05-05 15:08] LABS: Abs Immature Grans 0.01 10^3/uL (0.0-0.06); Absolute Basophil Count 0.02 10^3/uL (0.0-0.2); Absolute Eosinophil Count 0.01 10^3/uL (0.0-0.7); Absolute Lymphocyte Count 0.62 10^3/uL (1.2-3.4); Absolute Monocyte Count 0.31 10^3/uL (0.1-0.8); Basophils % 0.5; Eosinophils % 0.2; HCT 31.6 % (36.0-46.0); HGB 10.7 g/dL (11.2-15.7); Immature Grans % 0.2; MCHC 33.9 % (32.0-36.0); MCV 98 fL (80-95); MPV 8.7 fL (8.0-11.0); Monocytes % 7.5; Neutrophils % 76.6; Platelet Count 196 10^3/uL (130-400); RBC 3.24 10^6/uL (3.93-5.22); RDW 12.6 % (11.7-14.6); RDW-SD 45.1 fL; Reticulocyte 1.5 % (0.5-2.4); WBC 4.12 10^3/uL (4.4-10.8)
[2022-05-05 15:09] LABS: Absolute Neutrophil Count 3.16 10^3/uL (1.2-6.7)
[2022-05-05 15:48] LABS: COMMENT (LAB VIEW ONLY) 216.07 mg/dL; Microalb ug/mg Crea 9.1 ug/mg Cr
[2022-05-05 16:11] LABS: ALT 24 U/L (14-59); AST 23 U/L (15-37); Albumin 3.5 g/dL (3.4-5.0); Alkaline Phosphatase 79 U/L (46-116); Anion Gap 10.4 mmol/L (3-11); BUN 23 mg/dL (7-18); Bilirubin, Total 0.2 mg/dL (0.2-1.0); CO2 23.6 mmol/L (21.0-32.0); Calcium 9.9 mg/dL (8.5-10.1); Calculated LDL 79 mg/dL (<100); Chloride 107 mmol/L (98-107); Cholesterol 182 mg/dL (<200); Estimated GFR 62.13 (mL/min/1.73m2); Ferritin 531 ng/mL (8-252); Glucose 124 mg/dL (74-106); HDL Cholesterol 48 mg/dL (40-60); Potassium 3.6 mmol/L (3.5-5.1); Sodium 141 mmol/L (136-145); Total Protein 7.8 g/dL (6.4-8.2); Triglyceride 277 mg/dL (<150)
[2022-05-05 16:15] LABS: Iron 70 ug/dL (50-170); Total Iron Binding Capacity 239 ug/dL (250-450); Transferrin Sat 29 % (15-50)
[2022-05-05 16:16] LABS: Folate > 20.0 ng/mL (8.6-20.0)
[2022-05-05 16:28] LABS: LDH 245 U/L (81-234)
== END 2022-05-05 02:02 | disposition home or self-care (01) ==
LOC: LBO 02:01
PROVIDERS: PCP Nurse Practitioner Family; Visit Provider Nurse Practitioner Family
DX: D64.9 Anemia, unspecified (principal); I10 Essential (primary) hypertension; E78.5 Hyperlipidemia, unspecified
CPT/HCPCS: 36415; 80053; 80061; 82043; 82570; 82728; 82746; 83540; 83550; 83615; 85025; 85045

== ENCOUNTER 2022-05-12 02:58 | Outpatient (CLI) | payer MEDICARE, BC, SELFPAY ==
[2022-05-12 14:52] LABS: Bilirubin Negative (Negative); Blood Negative (Negative); Clarity Clear (Clear); Glucose Negative (Negative); Ketones Negative (Negative); Leukocyte Esterase Trace (Negative); Nitrite Negative (Negative); Specific Gravity 1.015 (1.005-1.025); Urobilinogen 0.2 EU/dL (Up TO 0.2); pH 5.5 (5-8)
[2022-05-12 14:58] LABS: Bacteria Few HPF (Negative); C & S Indicated? No; Casts Negative LPF (Negative); Crystals Negative HPF (Negative); Epithelial Cells Rare HPF (Negative); Mucus Negative (Negative); Other Cells Negative (Negative); RBC Negative HPF (0-2); WBC 0-2 HPF (0-5)
[2022-05-12 15:51] LABS: Bilirubin, Direct 0.1 mg/dL (0.0-0.2); Bilirubin, Total 0.3 mg/dL (0.2-1.0)
[2022-05-12 16:05] LABS: Abs Immature Grans 0.01 10^3/uL (0.0-0.06); Absolute Basophil Count 0.02 10^3/uL (0.0-0.2); Absolute Lymphocyte Count 0.66 10^3/uL (1.2-3.4); Absolute Monocyte Count 0.23 10^3/uL (0.1-0.8); Absolute Neutrophil Count 1.58 10^3/uL (1.2-6.7); Basophils % 0.8; HCT 31.6 % (36.0-46.0); HGB 10.8 g/dL (11.2-15.7); Immature Grans % 0.4; Lymphocytes % 26.4; MCHC 34.2 % (32.0-36.0); MCV 97 fL (80-95); MPV 9.4 fL (8.0-11.0); Monocytes % 9.2; Neutrophils % 63.2; Platelet Count 208 10^3/uL (130-400); RBC 3.27 10^6/uL (3.93-5.22); RDW 12.7 % (11.7-14.6); RDW-SD 45.2 fL
[2022-05-12 16:25] LABS: LDH 235 U/L (81-234)
[2022-05-13 09:10] LABS: Homocysteine 14.7 umol/L (5.0-13.9)
[2022-05-13 09:59] LABS: Haptoglobin 138 mg/dL (32-197)
[2022-05-13 14:49] LABS: ANA Interpretation Positive (Negative)
[2022-05-15 13:57] LABS: Methylmalonic Acid 0.28 nmol/mL (<=0.40)
== END 2022-05-12 02:59 | disposition home or self-care (01) ==
LOC: LBO 02:58
PROVIDERS: PCP Nurse Practitioner Family; Visit Provider Nurse Practitioner Family
DX: D58.9 Hereditary hemolytic anemia, unspecified (principal); D70.9 Neutropenia, unspecified; Z95.2 Presence of prosthetic heart valve; D64.9 Anemia, unspecified; R80.9 Proteinuria, unspecified; R76.8 Other specified abnormal immunological findings in serum
CPT/HCPCS: 36415; 80186; 83090; 81003; 81015; 82247; 82248; 83010; 83615; 85025; 86038

== ENCOUNTER → 2022-05-14 01:53 | Outpatient (CLI) | payer MEDICARE, BC, SELFPAY ==
--- NOTE | 2022-05-14 08:00 | DI.RAD_ITS ---
Exam(s) XR KNEE LT 3V AP,LAT,CLAUDIA EXAM: XR KNEE LT 3V AP,LAT,CLAUDIA CLINICAL HISTORY: chronic knee pain M25.561 PAIN LT KNEE G89.29. TECHNIQUE: 2D digital imaging was performed of the left knee. Four images were obtained. Merchant, AP, lateral and PA tunnel views were obtained. COMPARISON: CR XR KNEE RT 3V AP,LAT,CLAUDIA from 05/14/2022 FINDINGS: BONES: No acute fracture is present. No bony destructive lesion is seen. JOINTS: The knee is normally aligned. No joint effusion is seen. SOFT TISSUE: Normal. IMPRESSION: Normal radiographs of the left knee. DATA REPOSITORY: RADIATION DOSE DELIVERED:
--- NOTE | 2022-05-14 08:00 | DI.RAD_ITS ---
Exam(s) XR KNEE RT 3V AP,LAT,CLAUDIA EXAM: XR KNEE RT 3V AP,LAT,CLAUDIA CLINICAL HISTORY: chronic knee pain M25.561 G89.8X6. TECHNIQUE: 2D digital imaging was performed of the right knee. Three views obtained. AP, lateral an d PA tunnel views were obtained. COMPARISON: None FINDINGS: BONES: No acute fracture is present. No bony destructive lesion is seen. JOINTS: There is moderate narrowing in the medial femoral tibial joint. Periarticular spurring is se en involving all 3 joint compartments. There is a small joint effusion. SOFT TISSUE: Normal. IMPRESSION: Moderate degenerative changes of the right knee. DATA REPOSITORY: RADIATION DOSE DELIVERED:
--- NOTE | 2022-05-14 08:04 | DI.RAD_ITS ---
Exam(s) XR TIB/FIB RT EXAM: XR TIB/FIB RT CLINICAL HISTORY: pain/lump right fib mass or old injury? M89.8X6 DISORDER OF BONE. TECHNIQUE: 2D digital imaging was performed of the right tibia and fibula. Two images were obtained. AP and lateral views were obtained. COMPARISON: None. FINDINGS: BONES: No acute fracture is present. No bony destructive lesion is seen. Degenerative changes are see n in the knee particularly the medial femoral tibial joint space with joint space narrowing and peria rticular spurring. SOFT TISSUE: Normal. IMPRESSION: Osteoarthritis of the knee. DATA REPOSITORY: RADIATION DOSE DELIVERED:
== END ==
PROVIDERS: PCP Nurse Practitioner Family; Visit Provider Nurse Practitioner Family
DX: G89.29 Other chronic pain (principal); M17.11 Unilateral primary osteoarthritis, right knee; M25.562 Pain in left knee; M89.8X6 Other specified disorders of bone, lower leg
CPT/HCPCS: 73562; 73590

== ENCOUNTER 2022-05-21 08:28 | Outpatient (CLI) | payer MEDICARE, BC, SELFPAY ==
--- NOTE | 2022-05-21 08:15 | RT.EKG_ITS ---
APPROVED REPORT Exam: Resting ECG Reason for Exam: Patient Location: O HR:79 bpm ECG Measurements Heart Rate 79 AXIS CA 175 P 21 QRSd 100 QRS 12 QT 376 T 7 QTc 432 Conclusion Sinus arrhythmia...V-rate 72- 86, variation>10% Ventricular premature complex...V complex w/ short R-R interval
== END 2022-05-21 08:29 | disposition home or self-care (01) ==
LOC: DI.CARD 08:29
PROVIDERS: PCP Nurse Practitioner Family; Visit Provider Internal Medicine Cardiovascular Disease
DX: I35.0 Nonrheumatic aortic (valve) stenosis (principal); R94.31 Abnormal electrocardiogram [ECG] [EKG]; I49.3 Ventricular premature depolarization
CPT/HCPCS: 93010

== ENCOUNTER → 2022-05-21 13:47 | Outpatient (BNVA) | payer MEDICARE, BC, SELFPAY | PROVIDERS: PCP Nurse Practitioner Family; Visit Provider Internal Medicine Cardiovascular Disease | DX: I42.8 Other cardiomyopathies (principal); I10 Essential (primary) hypertension; G25.0 Essential tremor; Z95.2 Presence of prosthetic heart valve | CPT/HCPCS: 93005; 99214 ==

== ENCOUNTER 2022-06-08 14:55 | Outpatient (CLI) | payer MEDICARE, BC, SELFPAY ==
--- NOTE | 2022-06-08 14:30 | DI.RAD_ITS ---
Exam(s) XR CERVICAL SPINE COMP 4-5V EXAM: XR CERVICAL SPINE COMP 4-5V CLINICAL HISTORY: symptoms consisent with cervical spine compression. TECHNIQUE: 2D digital imaging was performed. COMPARISON: No exams were available for comparison FINDINGS: Four views: No evidence of fracture, listhesis, nor offset of the spinal laminar line. There is chronic disc space narrowing at C5-6 and C6-7 levels. Also multilevel facet arthropathy. O n the oblique views are multilevel small Luschka joint osteophytes evident on the left side; none on the right side. There are no cervical ribs. Sternotomy wires are noted. IMPRESSION: Chronic disc space narrowing C5-6 and C6-7 levels. DATA REPOSITORY: RADIATION DOSE DELIVERED:
== END 2022-06-08 14:56 | disposition home or self-care (01) ==
LOC: DIORS 14:56
PROVIDERS: PCP Nurse Practitioner Family; Referring Provider Nurse Practitioner Family; Visit Provider Physician Assistant Surgical
DX: M47.12 Other spondylosis with myelopathy, cervical region; G56.23 Lesion of ulnar nerve, bilateral upper limbs; E11.9 Type 2 diabetes mellitus without complications; I10 Essential (primary) hypertension; M62.81 Muscle weakness (generalized); R20.0 Anesthesia of skin; R20.2 Paresthesia of skin
CPT/HCPCS: 99215; 72050

== ENCOUNTER → 2022-06-17 02:19 | Outpatient (CLI) | payer MEDICARE, BC, SELFPAY ==
--- NOTE | 2022-06-17 15:20 | DI.MRI_ITS ---
Exam(s) MR CERVICAL SPINE WO EXAM: MR CERVICAL SPINE WO CLINICAL HISTORY: cervical myelopathy,NECK PAIN,NUMBNESS AND TINGLING,M54.2,R20.0,R20.2 TECHNIQUE: Multiplanar multisequence MRI of the cervical spine was performed without intravenous con trast. COMPARISON: CR XR CERVICAL SPINE COMP 4-5V from 06/08/2022 FINDINGS: Exam is mildly limited by motion. BONES: Vertebral body heights are maintained. Alignment is normal. Bone marrow signal intensity is wi thin normal limits.Hemangioma T1. CERVICAL CORD: Craniovertebral junction is unremarkable. The cervical cord is normal size and signal intensity. SOFT TISSUES: Unremarkable. The C2-3 level shows minimal disc bulging. C3-4: Loss of disc height and mild osteophytes which appear to cause bilateral neural foraminal narro wing. C4-5: Minimal disc osteophytes. Apparent right neural foraminal narrowing. C5-6: Severe loss of disc height. broad-based disc osteophytes causing narrowing of the AP dimension of the central canal. There is also bilateral neural foraminal narrowing.. C6-7: Moderate loss of disc height and broad-based disc osteophytes narrowing the AP dimension of the central canal.. C7-T1: Unremarkable. IMPRESSION: No disc herniation at any level. Multilevel degenerative disc changes causing neural foraminal narrowing and narrowing of the AP dimen marquez of the central canal, greatest at C5-6. DATA REPOSITORY:
== END ==
PROVIDERS: PCP Nurse Practitioner Family; Visit Provider Student in an Organized Health Care Education/Training Program
DX: M47.812 Spondylosis without myelopathy or radiculopathy, cervical region (principal); R20.0 Anesthesia of skin; R20.2 Paresthesia of skin
CPT/HCPCS: 72141

== ENCOUNTER → 2022-07-07 08:47 | Outpatient (BNVA) | payer MEDICARE, BC, SELFPAY | PROVIDERS: PCP Nurse Practitioner Family; Referring Provider Nurse Practitioner Family; Visit Provider Psychiatry & Neurology Neurology | DX: I12.9 Hypertensive chronic kidney disease with stage 1 through stage 4 chronic kidney disease, or unspecified chronic kidney disease (principal); E11.22 Type 2 diabetes mellitus with diabetic chronic kidney disease; N18.9 Chronic kidney disease, unspecified; G56.03 Carpal tunnel syndrome, bilateral upper limbs; M25.561 Pain in right knee; M25.562 Pain in left knee; M15.9 Polyosteoarthritis, unspecified; G62.9 Polyneuropathy, unspecified; R29.2 Abnormal reflex | CPT/HCPCS: 99215 ==

== ENCOUNTER → 2022-09-04 09:40 | Outpatient (BNVA) | payer MEDICARE, BC, SELFPAY | PROVIDERS: PCP Nurse Practitioner Family; Referring Provider Nurse Practitioner Family; Visit Provider Student in an Organized Health Care Education/Training Program | DX: G56.03 Carpal tunnel syndrome, bilateral upper limbs (principal); M17.11 Unilateral primary osteoarthritis, right knee; M25.562 Pain in left knee | CPT/HCPCS: 99214 ==

== ENCOUNTER 2022-09-15 00:56 | Outpatient (CLI) | payer MEDICARE, BC, SELFPAY ==
--- NOTE | 2022-09-15 10:27 | DI.US_ITS ---
APPROVED REPORT EXAM: Comprehensive 2D, Doppler, and color-flow Echocardiogram Other Information Study Quality: Adequate Conclusion Borderline concentric left ventricular hypertrophy. Estimated ejection fraction is 50 to 55%. There are no segmental wall motion abnormalities Normal right ventricular size and function Left atrium is moderately dilated. The right atrium is mildly dilated There is a bioprosthetic aortic valve. There is severe aortic stenosis. Mean gradient is 51. Calcu lated aortic valve area 0.63 cm??. There is trace to mild aortic regurgitation Mitral annular calcification with moderate regurgitation Estimated right ventricular systolic pressure is 16 mmHg Wall motion Left Ventricle The left ventricle is normal size. Left ventricular systolic function is borderline Borderline conc entric left ventricular hypertrophy. There are no segmental wall motion abnormalities There is no teagan tricular septal defect visualized. LVEF is 50-55%. Right Ventricle The right ventricle is normal size. The right ventricular systolic function is normal. The RVSP is 16 .3 mmHg. Atria Left atrium is moderately dilated. Right atrium is mildly dilated. The interatrial septum is intact with no evidence for an atrial septal defect. Aortic Valve Aortic valve is calcified. Number of aortic valve leaflets could not be assessed. Severe aortic steno sis. Peak aortic valve gradient is 82.4mmHg. Highest mean aortic valve gradient is 51.8mmHg. Calculat ed GEOVANNA by the continuity equation is .63cm2. Trace to mild aortic regurgitation. Bioprosthetic aorti c valve is present. Mitral Valve Moderate mitral annular calcification. No evidence of mitral valve stenosis. Moderate mitral regurgit ation. Tricuspid Valve The tricuspid valve is normal in structure. There is no tricuspid valve stenosis. Trace tricuspid reg urgitation. Pulmonic Valve The pulmonary valve is normal in structure. There is no pulmonic valvular stenosis. There is no pulmo beverley valvular regurgitation. Great Vessels The aortic root is normal in size. The ascending aorta is normal in size. Aortic arch is normal in ca liber. IVC is normal in size and collapses >50% with inspiration. Pericardium There is no pericardial effusion. 2D Dimensions IVSD d PLAX 1.07 cm F: 0.6-1.0 LV Vol A2C d MOD 142.4 mL LVPW d PLAX 1.07 cm F: 0.6 - 1.0 LV Vol A4C d MOD 115.1 mL LVID d PLAX 4.59 cm F: 3.8 - 5.2 LA vol/ BSA A2C s A-L 54.4 mL/m2 LVDs 3.40 cm F: 2.2 - 3.5 LA vol/ BSA A4C s A-L 49.3 mL/m2 Ao Root d 2.68 cm F: 2.7 - 3.3 LA Vol/ BSA Biplane s A-L 56.0 mL/m2 RA Area A4C 14.58 cm2 LA Area A4C s MOD 25.87 cm2 RA Vol/ BSA A4C s A-L 21.1 mL/m2 LA Area A2C s MOD 25.11 cm2 Ao Asc Diam d 3.08 cm F: 2.3 - 3.1 LV EF A4C MOD 50.6 % LV EF Teichholz 50.0 % LV EF A2C MOD 50.1 % LVEF (Samuel's) 46.85 % F: 54 - 74 LV EF Biplane MOD 46.9 % LV Volume 100.13 mL F: 46 - 106 SV 60.64 mL LV Volume Index 54.71 mL/m2 F: 29 - 61 SV Index 33.18 mL/m2 LV Vol Biplane MOD 129.4 mL FS 25.25 % M-Mode TAPSE 2.00 cm (M/F) >1.7 LV Diastology MV E' medial 0.069 (>0.07 m/s) E/A Ratio 1.0 LV E/e MED 12.40 (<14) MV E Vmax 0.86 (0.4-1.3 m/s) MV E' lateral 0.108 (>0.1 m/s) MV A Vmax 0.90 (0.4-1.3 m/s) LV E/e LAT 8.00 (<14) MV E/A Ratio 0.92 MV E/E' medial 12.42 MV E/E' lateral 8.02 Aortic Valve LVOT Area 3.39 cm2 AoV Area Vmax 0.63 cm2 LVOT Vmax 0.85 m/s AoV Area/ BSA (Vmax) 0.35 cm2/m2 LVOT Mean Donal. 0.59 m/s GEOVANNA Mean Donal. 0.59 cm2 LVOT Peak Grad 2.9 mmHg GEOVANNA Mean Donal. Index 0.32 cm2/m2 LVOT Mean Grad 1.6 mmHg LVOT VTI 0.228 m LVOT Diam s 2.05 cm AoV Vmax 4.54 m/s Velocity Ratio 0.19 AoV Mean Donal. 3.39 m/s AoV Peak Grad 82.4 mmHg LVOT SV 77.37 mL AoV Mean Grad 51.8 mmHg AoV VTI 1.202 m AoV Area VTI 0.64 cm2 AoV Area/ BSA (VTI) 0.35 cm/m2 Mitral Valve MV DT 174 (160-240 msec) MR Vmax 6.38 m/s MV PHT 50 msec MR VTI 2.145 m MV Area PHT 4.36 cm2 MR Peak Grad 162.8 mmHg MV VTI 0.275 m MR Mean Grad 84.0 mmHg MV VTI Annulus 0.286 m MR PISA Radius 0.51 cm MV Area VTI 2.93 (4.0-6.0 cm2) MR EROA 0.09 cm2 MR Aliasing Velocity 0.35 m/s MR PISA 1.66 cm2 Pulmonary Valve PV Vmax 1.11 (0.5-1.5 m/s) RVOT Peak Gr. 1.89 mmHg PV Peak Grad 4.9 mmHg RVOT Mean Gr. 0.90 mmHg PV Mean Grad 1.9 mmHg RVOT VTI 0.155 m PV VTI 0.183 m RVOT Vmax 0.69 m/s Tricuspid Valve TR Peak Grad 13.2 mmHg TR Vmax 1.82 m/s RA Pressure 3.00 mmHg RVSP (TR) 16.3 mmHg
== END 2022-09-15 01:16 ==
LOC: DI 00:56
PROVIDERS: PCP Nurse Practitioner Family; Visit Provider Internal Medicine Cardiovascular Disease
DX: I35.0 Nonrheumatic aortic (valve) stenosis (principal); Z95.2 Presence of prosthetic heart valve
CPT/HCPCS: 93306

== ENCOUNTER 2022-10-29 02:44 | Outpatient (CLI) | payer MEDICARE, BC, SELFPAY ==
[2022-10-29 14:11] LABS: Abs Immature Grans 0.01 10^3/uL (0.0-0.06); Absolute Basophil Count 0.02 10^3/uL (0.0-0.2); Absolute Eosinophil Count 0.02 10^3/uL (0.0-0.7); Absolute Lymphocyte Count 0.58 10^3/uL (1.2-3.4); Absolute Monocyte Count 0.29 10^3/uL (0.1-0.8); Absolute Neutrophil Count 3.68 10^3/uL (1.2-6.7); Basophils % 0.4; Eosinophils % 0.4; HCT 34.2 % (36.0-46.0); HGB 11.4 g/dL (11.2-15.7); Immature Grans % 0.2; Lymphocytes % 12.6; MCH 31.9 pg (27.0-33.0); MCHC 33.3 % (32.0-36.0); MCV 96 fL (80-95); MPV 8.9 fL (8.0-11.0); Monocytes % 6.3; Neutrophils % 80.1; Platelet Count 205 10^3/uL (130-400); RBC 3.57 10^6/uL (3.93-5.22); RDW 11.9 % (11.7-14.6)
[2022-10-29 14:28] LABS: INR 1.1 (0.9-1.1); PTT Activated 25.9 sec (21.5-31.9); Prothrombin Time 10.7 sec (9.3-11.0)
[2022-10-29 14:31] LABS: Hemoglobin A1C 5.6 % (<5.7)
[2022-10-29 15:25] LABS: ALT 18 U/L (14-59); AST 25 U/L (15-37); Albumin 3.5 g/dL (3.4-5.0); Alkaline Phosphatase 84 U/L (46-116); Anion Gap 8.7 mmol/L (3-11); BUN 24 mg/dL (7-18); Bilirubin, Total 0.4 mg/dL (0.2-1.0); CO2 28.3 mmol/L (21.0-32.0); CREATININE 1.3 mg/dL (0.55-1.02); Calcium 10.1 mg/dL (8.5-10.1); Calculated LDL 88 mg/dL (<100); Chloride 104 mmol/L (98-107); Cholesterol 178 mg/dL (<200); Estimated GFR 45.07 (mL/min/1.73m2); Glucose 106 mg/dL (74-106); HDL Cholesterol 53 mg/dL (40-60); Potassium 3.8 mmol/L (3.5-5.1); Sodium 141 mmol/L (136-145); Total Protein 7.8 g/dL (6.4-8.2); Triglyceride 187 mg/dL (<150); Vitamin B12 1940 pg/mL (193-986)
[2022-11-03 13:13] LABS: dsDNA Ab, IgG <12.3 IU/mL (<30.0)
[2022-11-03 14:30] LABS: Sm (Smith) Ab, IgG 18.5 Units (<20.0)
== END 2022-10-29 02:45 | disposition home or self-care (01) ==
LOC: LBO 02:44
PROVIDERS: Internal Medicine Cardiovascular Disease; PCP Nurse Practitioner Family; Visit Provider Nurse Practitioner Family
DX: I35.0 Nonrheumatic aortic (valve) stenosis (principal); N18.9 Chronic kidney disease, unspecified; E78.5 Hyperlipidemia, unspecified; E11.22 Type 2 diabetes mellitus with diabetic chronic kidney disease; E53.8 Deficiency of other specified B group vitamins; R76.8 Other specified abnormal immunological findings in serum; Z79.899 Other long term (current) drug therapy; Z95.2 Presence of prosthetic heart valve
CPT/HCPCS: 36415; 80053; 80061; 99214; 82607; 83036; 85025; 85610; 85730; 86225; 86235

== ENCOUNTER → 2023-01-05 13:18 | Outpatient (BNVA) | payer MEDICARE, BC, SELFPAY | PROVIDERS: Visit Provider Psychiatry & Neurology Neurology | DX: R53.1 Weakness (principal); R29.2 Abnormal reflex; M17.0 Bilateral primary osteoarthritis of knee; G56.03 Carpal tunnel syndrome, bilateral upper limbs; G62.9 Polyneuropathy, unspecified; R73.03 Prediabetes; I12.9 Hypertensive chronic kidney disease with stage 1 through stage 4 chronic kidney disease, or unspecified chronic kidney disease; N18.9 Chronic kidney disease, unspecified | CPT/HCPCS: 99215 ==

== ENCOUNTER 2023-01-06 15:17 | Outpatient (REF) | payer MEDICARE, BC, SELFPAY ==
[2023-01-06 22:18] LABS: Estimated GFR 61.75 (mL/min/1.73m2); LDH 336 U/L (81-234)
[2023-01-08 11:33] LABS: Albumin 56.2 % (55.8-66.1); Albumin g/dL 3.9 g/dL (3.6-5.2); Total Protein 6.9 g/dL (6.3-8.2)
[2023-01-08 15:28] LABS: ANA Interpretation Positive (Negative)
[2023-01-08 15:46] LABS: RNP Ab, IgG 149.1 Units (<20.0); SS-A Antibody 1.3 Units (<20.0); SS-B (La) Ab, IgG 1.5 Units (<20.0); Sm (Smith) Ab, IgG 15.3 Units (<20.0)
[2023-01-09 12:11] LABS: Aldolase 6.8 U/L (<7.7)
[2023-01-11 16:14] LABS: TSH (W/Ref FT4) 1.51 uIU/mL (0.36-3.74)
[2023-01-30 18:11] LABS: Anti-EJ Ab Negative (Negative); Anti-Jo-1 Ab <20 Units (<20); Anti-Ku Ab Negative (Negative); Anti-MDA-5 Ab (CADM-140) <20 Units (<20); Anti-Mi-2-Ab Negative (Negative); Anti-NXP-2 (P140) Ab <20 Units (<20); Anti-OJ Ab Negative (Negative); Anti-PL-12 Ab Negative (Negative); Anti-PL-7 Ab Negative (Negative); Anti-PM/Scl-100 Ab <20 Units (<20); Anti-SRP Ab Negative (Negative); Anti-SS-A 52kD Ab, IgG <20 Units (<20); Anti-TIF-1gamma Ab <20 Units (<20); Anti-U1 RNP Ab 119 Units (<20); Anti-U3 RNP (Fibrillarin) Negative (Negative)
== END 2023-01-06 15:18 | disposition home or self-care (01) ==
LOC: NCHCN 15:17
PROVIDERS: Visit Provider Family Medicine
DX: R53.1 Weakness (principal); I10 Essential (primary) hypertension; E11.9 Type 2 diabetes mellitus without complications; M15.9 Polyosteoarthritis, unspecified; I12.9 Hypertensive chronic kidney disease with stage 1 through stage 4 chronic kidney disease, or unspecified chronic kidney disease
CPT/HCPCS: 83516; 86235; 82085; 82565; 83615; 84165; 84443; 86038

== ENCOUNTER 2023-01-26 01:27 | Outpatient (CLI) | payer MEDICARE, BC, SELFPAY ==
--- NOTE | 2023-01-26 07:45 | DI.MRI_ITS ---
Exam(s) MR BRAIN WO EXAM: MR BRAIN WO CLINICAL HISTORY: progressive weakness with UMN reflexes,BABINSKI REFLEX,R29.2,R53.1. TECHNIQUE: Multiplanar multisequence MRI of the brain was performed. CONTRAST MATERIAL: Noncontrast COMPARISON: CT CT HEAD - STROKE PROTOCOL from 05/09/2021 FINDINGS: VENTRICLES AND EXTRA AXIAL SPACES: Normal in size and morphology for the patient's age. HEMORRHAGE: None. CEREBRAL PARENCHYMA: No focus of restricted diffusion to suggest acute infarct. No space-occupying le marquez identified. Scattered tiny foci of high signal in the white matter of the frontal and parietal lobessome in a periventricular location. Findings could represent sequela of chronic microvascular i schemia versus a demyelinating process such as multiple sclerosis. MIDLINE SHIFT: None. BRAINSTEM/CEREBELLUM: Small linear area of high-signal on T2 and FLAIR images without restricted diff usion with consistent with old lacunar infarct. CALVARIUM: Normal. Noncontrast VISUALIZED PARANASAL SINUSES/MASTOIDS: Clear. IMPRESSION: White matter foci nonspecific but suspicious for demyelinating process such as multiple sclerosis. DATA REPOSITORY:
--- NOTE | 2023-01-26 07:45 | DI.MRI_ITS ---
Exam(s) MR THORACIC SPINE WO EXAM: MR THORACIC SPINE WO CLINICAL HISTORY: progressive weakness with UMN reflexes,BABINSKI REFLEX, R29.2,R53.1. TECHNIQUE: Multiplanar multisequence MRI of the Thoracic spine was performed. CONTRAST MATERIAL: Noncontrast COMPARISON: MR MR CERVICAL SPINE WO from 06/17/2022 FINDINGS: Bones: The vertebral body heights are well maintained. Alignment is satisfactory. The signal characte ristics are unremarkable. Hemangiomas noted in T1 and T3. endplate osteophytes projecting anteriorly. Cord: The thoracic cord is normal size and signal intensity. No intrinsic cord lesion is present. Discs: No disc herniation present. Minimal disc bulging in the mid and lower levels. No significa nt encroachment into the central canal. Soft tissues: Normal. IMPRESSION: Degenerative changes. No significant encroachment into the central canal. No significant neural for aminal narrowing. Normal cord signal. DATA REPOSITORY:
== END 2023-01-26 01:47 ==
PROVIDERS: PCP Family Medicine; Visit Provider Psychiatry & Neurology Neurology
DX: M47.814 Spondylosis without myelopathy or radiculopathy, thoracic region (principal)
CPT/HCPCS: 70551; 72146

== ENCOUNTER 2023-01-29 14:28 | Outpatient (CLI) | payer MEDICARE, BC, SELFPAY | END 2023-01-29 14:29 | disposition home or self-care (01) | PROVIDERS: PCP Family Medicine; Visit Provider Psychiatry & Neurology Neurology | DX: G45.9 Transient cerebral ischemic attack, unspecified (principal) | CPT/HCPCS: 93270 ==

== ENCOUNTER 2023-02-16 01:27 | Outpatient (CLI) | payer MEDICARE, BC, SELFPAY ==
--- NOTE | 2023-02-16 12:50 | DI.MRI_ITS ---
Exam(s) MR ANGIO BRAIN WO CLINICAL HISTORY: prior bilateral lacunar infarcts,stroke,abnl mri,i63.9. TECHNIQUE: Multiplanar multisequence MRA of the brain was performed. COMPARISON: MR MR BRAIN WO from 01/26/2023 FINDINGS: Carotid Arteries: No aneurysm, occlusion or significant stenosis. Anterior Cerebral Arteries: Right: No aneurysm, occlusion or significant stenosis. Left: No aneurysm, occlusion or significant stenosis. Middle Cerebral Arteries: Right: No aneurysm, occlusion or significant stenosis. Left: No aneurysm, occlusion or significant stenosis. Posterior Cerebral Arteries: Right: No aneurysm, occlusion or significant stenosis. There is origin of the right FIRER RETORT which is a normal variant. Left: No aneurysm, occlusion or significant stenosis. Vertebral Arteries: Right: No aneurysm, occlusion or significant stenosis. Left: No aneurysm, occlusion or significant stenosis. Basilar Artery: No aneurysm, occlusion or significant stenosis. IMPRESSION: Normal MRA examination of the [place]. DATA REPOSITORY:
--- NOTE | 2023-02-16 13:15 | DI.MRI_ITS ---
Exam(s) MR ANGIO NECK WO EXAM: MR ANGIO NECK WO CLINICAL HISTORY: prior bilateral frontal lacunar infarcts,stroke,abnl mri,i63.9. TECHNIQUE: Multiplanar multisequence MRA of the Neck was performed. COMPARISON: No exams were available for comparison FINDINGS: There is patient motion artifact present. Common Carotid: Right: No dissection, occlusion or significant stenosis. Left: No dissection, occlusion or significant stenosis. External Carotid: Right: No evidence of occlusion or significant stenosis. Left: No evidence of occlusion or significant stenosis. Internal Carotid: Right: No dissection, occlusion or significant stenosis. Left: No dissection, occlusion or significant stenosis. Vertebral Artery: Right: No dissection, occlusion or significant stenosis. Left: No dissection, occlusion or significant stenosis. The visualized paraspinal soft tissues are unremarkable. IMPRESSION: No evidence of dissection, occlusion or significant stenosis. DATA REPOSITORY:
== END 2023-02-16 01:47 ==
LOC: DI 01:30
PROVIDERS: PCP Family Medicine; Visit Provider Psychiatry & Neurology Neurology
DX: I63.9 Cerebral infarction, unspecified (principal); R90.89 Other abnormal findings on diagnostic imaging of central nervous system
CPT/HCPCS: 70544; 70547

== ENCOUNTER → 2023-02-18 09:42 | Outpatient (BNVA) | payer MEDICARE, BC, SELFPAY | PROVIDERS: PCP Family Medicine; Visit Provider Psychiatry & Neurology Neurology | DX: M25.561 Pain in right knee (principal); M25.562 Pain in left knee; R29.2 Abnormal reflex; G56.03 Carpal tunnel syndrome, bilateral upper limbs; M15.9 Polyosteoarthritis, unspecified; G62.9 Polyneuropathy, unspecified | CPT/HCPCS: 95886; 95908 ==

== ENCOUNTER 2023-02-18 11:31 | Outpatient (CLI) | payer MEDICARE, BC, SELFPAY ==
[2023-02-18 12:13] LABS: Creatine Kinase 52 U/L (26-192)
== END 2023-02-18 11:32 | disposition home or self-care (01) ==
LOC: LBO 11:43
PROVIDERS: PCP Family Medicine; Visit Provider Psychiatry & Neurology Neurology
DX: R53.1 Weakness (principal)
CPT/HCPCS: 36415; 82550; 95886; 95908; 99214

== ENCOUNTER → 2023-03-01 10:44 | Outpatient (BNVA) | payer MEDICARE, BC, SELFPAY | PROVIDERS: PCP Family Medicine; Referring Provider Family Medicine; Visit Provider Student in an Organized Health Care Education/Training Program | DX: M17.11 Unilateral primary osteoarthritis, right knee (principal) | CPT/HCPCS: 20610; J1040 ==

== ENCOUNTER 2023-03-08 08:51 | Outpatient (CLI) | payer MEDICARE, BC, SELFPAY ==
--- NOTE | 2023-03-08 09:07 | W.CARDEVENT ---
Date of service: 03/08/23 Time of Service: 09:07 Cardiac Event Recorder Referring Provider:: Kyra Haas Indications:: TIA Cardiac Event Note: This is a 30-day cardiac event monitor. predominant rhythm was sinus with an average heart rate of 84. There was no bradycardia. Maximum heart rate in sinus rhythm was 146 There were occasional ventricular ectopic beats. Several brief runs of nonsustained ventricular tachycardia were recorded There was no atrial fibrillation, no high-grade AV block, no pauses greater than 3 seconds No patient symptoms were reported
== END 2023-03-08 08:52 | disposition home or self-care (01) ==
LOC: CARDOPNVT 08:51
PROVIDERS: PCP Family Medicine; Visit Provider Internal Medicine Cardiovascular Disease
DX: G45.9 Transient cerebral ischemic attack, unspecified (principal); I49.3 Ventricular premature depolarization; I47.20 Ventricular tachycardia, unspecified
CPT/HCPCS: 93272

== ENCOUNTER 2023-05-05 13:27 | Outpatient (CLI) | payer MEDICARE, BC, SELFPAY ==
--- NOTE | 2023-05-05 13:15 | RT.EKG_ITS ---
APPROVED REPORT Exam: Resting ECG Reason for Exam: Heart Arrhythmia Patient Location: O HR:102 bpm ECG Measurements Heart Rate 102 AXIS [place] 187 P 54 QRSd 107 QRS 26 QT 351 T [id number] QTc 458 Conclusion Sinus tachycardia...rate> 99 Multiform ventricular premature complexes...short R-R, variable morphology Left ventricular hypertrophy with repolarization abnormalities
== END 2023-05-05 13:28 | disposition home or self-care (01) ==
LOC: CARDOPNVT 13:27
PROVIDERS: PCP Family Medicine; Visit Provider Internal Medicine Cardiovascular Disease
DX: I49.9 Cardiac arrhythmia, unspecified (principal)
CPT/HCPCS: 93005; 93010

== ENCOUNTER 2023-05-08 03:32 | Emergency (ER) | payer MEDICARE, BC, SELFPAY ==
[2023-05-08] VITALS (40 sets, daily range): BP systolic 65–108; BP diastolic 41–66; PULSE 100–140; RESP 11–40; TEMP 36.7; O2SAT 89–97
--- NOTE | 2023-05-08 03:15 | RT.EKG_ITS ---
APPROVED REPORT Exam: Resting ECG Reason for Exam: chest pressure Patient Location: E HR:132 bpm ECG Measurements Heart Rate 132 AXIS TX 292 P 0 QRSd 98 QRS 36 QT 300 T [id number] QTc 444 Conclusion Sinus tachycardia...rate> 99 Multiple ventricular premature complexes...V complexes w/ short R-R intervls Prolonged TX interval...TX >210, V-rate 121-300 Consider anteroseptal infarct...Q >30mS, dimin R, V1-V2 Nonspecific repol abnormality, diffuse leads...ST dep, T flat/neg, ant/lat/inf Narrow complex sinus tachycardia at a rate of 132 with first-degree AV block. Normal axis. QTc with in normal limits. ST segment depressions V4 through V6 and in the inferior leads leads II and aVF. Submillimeter ST segment elevation in aVL. Compared to prior dated earlier this month ST segment dep ressions are more pronounced. Elevation in aVL appears new.
--- NOTE | 2023-05-08 03:19 | ED.GENADUL_ITS ---
Discharge Plan Discharge Details Chief Complaint: Chest Pain Clinical Impression: Acute hypoxic respiratory failure, Acute systolic (congestive) heart failure, Critical aortic valve stenosis, Myocardial injury, First degree atrioventricular block Primary Care Provider: Magdalena Acosta ED Provider: Monica Serna Home Meds and New Rx's Prescriptions: No Action amoxicillin 500 mg capsule 2,000 mg PO PRN PRN Patient Comments: Prior to dental procedures Tracy Rx Instructions: Before dental appointments. (DME) blood-glucose meter Misc See Rx Instructions .ROUTE .MEDSUPPLY Qty: 1 0RF Rx Instructions: As directed to check blood glucose daily. No insulin. Dispense covered brand. (DME) Blood Glucose Test Strip See Rx Instructions .ROUTE .MEDSUPPLY Qty: 100 3RF Rx Instructions: As directed to check blood glucose daily. No insulin. Dispense covered brand. (DME) lancets Misc See Rx Instructions .ROUTE .MEDSUPPLY Qty: 100 3RF Rx Instructions: As directed to check blood glucose daily. No insulin. Dispense covered brand. cyanocobalamin (vitamin B-12) 1,000 mcg capsule 500 mcg PO DAILY aspirin [Aspir-81] 81 MG tablet,delayed release (DR/EC) 81 mg PO DAILY multivitamin [Daily Multi-Vitamin] 1 EACH tablet 1 ea PO DAILY acetaminophen 500 MG tablet 1,000 mg PO Q6H PRN doxycycline hyclate 50 mg tablet 50 mg PO DAILY Patient Comments: pt states no longer taking. Rx Instructions: #30 R1 note dated 11/11/20 [facility] atorvastatin 10 mg tablet 10 mg PO DAILY Qty: 90 3RF nystatin 100,000 unit/gram powder 1 applic topical BID Qty: 60 0RF diltiazem HCl 180 mg capsule,extended release 24hr 180 mg PO DAILY Qty: 90 3RF losartan 25 mg tablet 25 mg PO DAILY Qty: 90 3RF Patient Comments: pt states no longer taking spironolactone 25 mg tablet 12.5 mg PO DAILY Qty: 45 3RF Rx Instructions: Dr. Burrell meloxicam 15 mg tablet 15 mg PO DAILY Qty: 30 1RF Rx Instructions: Take one tablet daily for inflammation and pain hydroxychloroquine 200 mg tablet 200 mg PO DAILY Patient Comments: pt states unsure if this is the correct dose, but this is what is listed in her chart 05/08/23 HPI General Date/Time Provider Initiated Documentation: 05/08/23 03:32 . HPI Narrative: HPI This is 67-year-old female with history of critical aortic stenosis arrived to the emergency department via paramedics in the setting of chest pressure and difficulty breathing. Patient reportedly had room air oxygen saturations in the mid 80s. In 2017 she had a bovine valve placed. She is on daily aspirin. Paramedics provided 324 mg of aspirin. The deferred nitroglycerin as patient reportedly had soft pressures. She reports that she has had a central chest pressure for the past several days. She reports that it is substernal. She also had difficulty breathing and her chest pain radiated up into her jaw. She has had a 4 pound unintentional weight gain over the past several days. She has been sleeping in a recliner. She has been increasingly fatigued. She has not had any recent syncope. She did not a PE nor DVT. Exam General: Well-appearing in no acute distress speaking in complete sentences. Head: Normocephalic, atraumatic. Eye: Extraocular eye movements intact. No conjunctival injection. No scleral icterus. Ear, nose, mouth, throat: Grossly normal inspection. Normal voice, handling secretions normally. Neck: Trachea midline. Cardiovascular: Well-perfused distal extremities. Rapid regular rate. Respiratory: Nonlabored respiration. Decreased breath sounds bilateral bases Gastrointestinal: Nondistended abdomen. Soft nontender Musculoskeletal: No significant lower extremity pitting edema. Warm e xtremities. Moving all 4 extremities spontaneously. Skin: Normal for age and race, grossly normal temperature and turgor. No acute rash. Neurologic: Alert and appropriate, no apparent acute deficits. Psychiatric: Mood and manner are appropriate. Grooming and personal hygiene are appropriate. MDM This is an overall well-appearing normothermic but tachycardic 67-year-old female with critical aortic stenosis now with superimposed acute systolic heart failure given shortness of breath acute hypoxic respiratory failure with bilateral B-lines. Given patient's soft blood pressure will trial low-dose diuretics at this point in time using 20 mg of furosemide. We will send a D- dimer to assess for PE though my suspicion is lower for pulmonary embolism. Will obtain troponin and touch base with cardiology at [facility] as I feel the patient will benefit from tertiary care transfer. No recent fevers nor cough to suggest pneumonia. Patient does not have significant lower extremity edema though she does become more symptomatic when she lies flat on her back and given her bilateral B-lines will send a proBNP. No pain out of proportion to suggest necrotizing soft tissue infection.No signs of cardiogenic shock at this point. New first-degree AV block certainly could be consistent with failing conduction system. 4:10 AM CBC showing slightly worsened microcytic anemia. No leukocytosis. No thrombocytopenia.Myocardial injury with troponin elevation to 1358 ng/L. We will treat for NSTEMI with heparinization. Chest pain at rest certainly could represent unstable angina. Comprehensive metabolic panel with CKD but no EVANS. No signs of hepatic congestion baseline normal reassuring LFTs. Mild hyperglycemia. No anion gap. Normal bicarbonate. Not consistent with DKA. proBNP 17,323 pg/mL. 4:44 AM I spoke to cards fellow Dr. Ott who plans to accept the patient to cardiac critical care under Dr. Alvino Chua. He first requested a lactate be drawn. Patient had a positive D-dimer for which she will undergo CTA to assess for PE. 5:15 AM I spoke again to Dr. Ott who graciously agreed to accept the patient to critical care service at [facility] We will inquire as to helicopter possibility. 5:45 AM Patient's heart rate improved to 105 bpm. Her blood pressure was also 105 systolic. On preliminary read of the patient's CTA there was no reported PE. Patient was noted to have cardiomegaly with bilateral pleural effusions and diffuse pleural interstitial thickening. 7:20 AM Patient had a blood pressure in the 80s over 40s. We are initially planning on starting phenylephrine however spoke with Dr. Segura from cardiology at [facility] and he advised against it in the setting of her critical aortic stenosis. Chronic conditions affecting the care of the patient: Critical aortic stenosis History obtained from an outside historian: Paramedics External record review: [facility] [place] [Diagnostic interpretations performed by me:] [Per my independent interpretation chest x-ray shows:] Increased interstitial markings bilaterally. [Per my independent interpretation EKG shows:] Narrow complex sinus tachycardia at a rate of 132 with first-degree AV block. Normal axis. QTc within normal limits. ST segment depressions V4 through V6 and in the inferior leads leads II and aVF. Submillimeter ST segment elevation in aVL. Compared to prior dated earlier this month ST segment depressions are more pronounced. Elevation in aVL appears new. Medications: Furosemide Social determinants of health affecting disposition: N/A Management discussed with: Cards [facility] Treatment/interventions considered: None Response to therapies provided: Diuresed following IV furosemide Related Data Home Medications Medication Instructions Recorded Confirmed aspirin 81 mg tablet,delayed 81 mg PO DAILY 10/19/12 05/08/23 release (Aspir-) multivitamin (Daily Multi-Vitamin 1 ea PO DAILY 06/05/15 05/08/23 tablet) acetaminophen 500 mg tablet 1,000 mg PO Q6H PRN 09/29/16 05/08/23 amoxicillin 500 mg capsule 2,000 mg PO PRN PRN 09/28/18 05/08/23 doxycycline hyclate 50 mg tablet 50 mg PO DAILY 11/11/20 03/01/23 blood sugar diagnostic (Blood #100 ea 05/21/21 03/01/23 Glucose Test strips) blood-glucose meter #1 ea 05/21/21 03/01/23 lancets #100 ea 05/21/21 03/01/23 atorvastatin 10 mg tablet 10 mg PO DAILY #90 tabs 08/13/22 05/08/23 cyanocobalamin (vitamin B-12) 500 mcg PO DAILY 09/04/22 05/08/23 1,000 mcg capsule nystatin 100,000 unit/gram topical 1 applic topical BID #60 grams 11/30/22 05/08/23 powder diltiazem HCl 180 mg 180 mg PO DAILY #90 caps 01/26/23 05/08/23 capsule,extended release 24 hr losartan 25 mg tablet 25 mg PO DAILY #90 tab-caps 04/29/23 spironolactone 25 mg tablet 12.5 mg PO DAILY #45 tab-caps 04/29/23 05/08/23 meloxicam 15 mg tablet 15 mg PO DAILY #30 tabs 05/04/23 05/08/23 hydroxychloroquine 200 mg tablet 200 mg PO DAILY 05/05/23 05/08/23 Previous Rx's Medication Instructions Recorded blood sugar diagnostic (Blood #100 ea 05/21/21 Glucose Test strips) blood-glucose meter #1 ea 05/21/21 lancets #100 ea 05/21/21 atorvastatin 10 mg tablet 10 mg PO DAILY #90 tabs 08/13/22 nystatin 100,000 unit/gram topical 1 applic topical BID #60 grams 05/01/23 powder diltiazem HCl 180 mg 180 mg PO DAILY #90 caps 01/26/23 capsule,extended release 24 hr losartan 25 mg tablet 25 mg PO DAILY #90 tab-caps 04/29/23 spironolactone 25 mg tablet 12.5 mg PO DAILY #45 tab-caps 04/29/23 meloxicam 15 mg tablet 15 mg PO DAILY #30 tabs 05/04/23 Allergies Allergy/AdvReac Type Severity Reaction Status Date / Time No Known Allergies Allergy Verified 05/08/23 05:57 General KELLY: 3 PFSH All Active Problems (Updated 05/08/23 @ 06:26 by Nitesh Baltazar MD) Acute hypoxic respiratory failure (Acute) Acute systolic (congestive) heart failure (Acute) Critical aortic valve stenosis (Acute) Myocardial injury (Acute) First degree atrioventricular block (Acute) Stroke (Chronic) Abnormal brain MRI (Acute) Weakness (Acute) Babinski reflex (Acute) Aortic stenosis, severe (Acute) Pre-procedure lab exam (Acute) Cervical spondylosis (Acute) Vitamin B12 deficiency (Acute) Degenerative joint disease of right knee (Acute) DEPO MEDROL 03/01/23 Peripheral neuropathy (Acute) Primary osteoarthritis involving multiple joints (Acute) IFG (impaired fasting glucose) (Chronic) Positive FRANCISCO (antinuclear antibody) (Chronic) [facility] [place]um consult x 2 ( & 06/2022) - No SLE Pain of right tibia (Acute) Bilateral chronic knee pain (Acute) Anemia (Chronic) Bilateral carpal tunnel syndrome (Acute) Corneal dystrophy (Acute 02/18/22) Cataracts, bilateral (Acute 02/18/22) Raynauds phenomenon (Acute) Ocular rosacea (Acute ~07/2021) CKD (chronic kidney disease) (Chronic) Diverticulosis (Chronic) Hyperlipidemia, unspecified (Chronic) Rosacea (Chronic) Candidate for statin therapy due to risk of future cardiovascular event (Chronic 12/13/15) 11/2016 labwork: Pt already on moderate intensity statin therapy --> continue current Rx Chronic idiopathic neutropenia (Chronic 07/20/16) Neg w/u [facility] 07/2016; 06/18/2017 Heme OV note: Go to ER if fevers. If neutropenic during illness, advised use of GCSF. If pt starts to develop infections, they plan to reconsider regular GCSF. Essential hypertension (Chronic 09/19/12) Improved following aortic valve replacement Essential tremor (Chronic 06/28/13) History of aortic valve replacement (Chronic 10/14/16) 09/21/2016 [facility]: bovine aortic valve replacement and aortoplasty for supravalvular stenosis NICOLAS (obstructive sleep apnea) (Chronic 05/28/14) Sleep study 2013 CPAP , re-eval 09/21/19 Obesity (Chronic 06/28/13) 2014: Initial plan for [facility] gastric bypass; 06/2014: Updated plan to work with Noreen Cloudgarrick Medical History (Updated 05/08/23 @ 06:26 by Nitesh Baltazar MD) Colon polyp Depressive disorder (06/28/13) Long-term Wellbutrin RX Counseling Renal lesion F/u US 12/2021: stable Severe aortic stenosis S/p AVR 09/21/2016 cadaver valve Surgical History Biopsy of breast s/p mammogram; benign Cholecystectomy (06/29/07) Colonoscopy - IV Sedation (10/23/13) Colonoscopy - MAC Replacement of aortic valve (09/21/16) w/aortoplasty for supravalvular stenosis at [facility] Family History Brother Diabetes Heart disease Hypertension Mother Heart disease Father Heart disease Sister Hypertension Social History Smoking/Tobacco Use Status: Never Smoking risk assessment performed?: Yes Alcohol Intake: never Drug use: Never Substance use type: does not use Adopted: No Caregiver/Support person: No Foster care: No Housing: house Number of Children: 0 Communication Needs: None and Corrective Lenses Education Level: college Do you need help understanding health information?: Rarely 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 Pets and animals: No Do you think of yourself as: straight/heterosexual Current gender identity: female What is your relationship status?: never How often do you talk on the phone with friends or family?: three or more times per week How often do you get together with friends or relatives?: once per week How often do you attend temple or restorationism services?: 1-3 times per year Do you belong to any clubs or organized social groups?: no Panel score (0-1 are the most socially isolated patients): 1 What type of physical activity do you participate in: none Yadira/Worship: Adventism Special yadira needs: No Seatbelt use: always Helmet use: Yes Drive intox or ride w/intox four horse hitch driver: No Water heater temp set <120 deg: Yes Working smoke detector in home: Yes Fire extinguisher in home: Yes Carbon monox detector in home: Yes Firearms in home: No Do you feel safe at home: Yes Critical Care Time Critical Care Time Critical Care Time: Yes Total Critical Care Time: 30 Attestation: Acute respiratory failure with hypoxia in the setting of critical aortic stenosis complicated by acute systolic heart failure POCUS Exam (ED) Limited Cardiac Exam DATE OF EXAM: 05/08/23 TIME OF EXAM: 03:55 PROVIDER THAT PERFORMED THE STUDY: Nitesh Baltazar IS THIS A REPEAT EXAM DURING THIS ENCOUNTER: no REASON FOR EXAM: Congestive heart failure VISUALIZED STRUCTURES: Four Chambers, Left ventricle and LVOT VIEW OBTAINED: Apical 4-Chamber, Parasternal long-axis, Subxiphoid and Other (Bilateral lung windows) PERTINENT FINDINGS/IMPRESSION: Other (Aortic outflow tract less than 4 cm, moderate squeeze, RV less than LV, no significant pericardial effusion, bilateral B-lines) DIFFERENTIAL DIAGNOSES: Aortic outflow tract less than 4 cm, moderate squeeze, RV less than LV, no significant pericardial effusion, bilateral B-lines Exam complete
--- NOTE | 2023-05-08 03:30 | DI.RAD_ITS ---
Exam(s) XR PORTABLE CHEST AP EXAM: XR PORTABLE CHEST AP CLINICAL HISTORY: Chest pain TECHNIQUE: 2D digital imaging was performed of the chest. One image was obtained. An AP view was ob tained. COMPARISON: CR XR CHEST 2V PA LATERAL from 05/09/2021 FINDINGS: MEDIASTINUM: Normal. HEART: Cardiomegaly. There is an aortic valve replacement. PULMONARY VASCULATURE: There is mild pulmonary venous congestion. LUNGS: Interstitial thickening is seen with the ground-glass opacities present. PLEURAL SPACE: No pleural effusion or pneumothorax. BONE:Within normal limits for the patient's age. Sternal wires are in place. OTHER FINDINGS:Normal. IMPRESSION: Findings suggestive of exacerbation of CHF. Pneumonia cannot be entirely excluded. Please correlate clinically. DATA REPOSITORY: RADIATION DOSE DELIVERED:
[2023-05-08 03:49] LABS: Abs Immature Grans 0.02 10^3/uL (0.0-0.06); Absolute Basophil Count 0.02 10^3/uL (0.0-0.2); Absolute Eosinophil Count 0.01 10^3/uL (0.0-0.7); Absolute Lymphocyte Count 0.61 10^3/uL (1.2-3.4); Absolute Monocyte Count 0.44 10^3/uL (0.1-0.8); Absolute Neutrophil Count 5.12 10^3/uL (1.2-6.7); Basophils % 0.3; Eosinophils % 0.2; HCT 31.3 % (36.0-46.0); HGB 10.5 g/dL (11.2-15.7); Immature Grans % 0.3; Lymphocytes % 9.8; MCH 32.2 pg (27.0-33.0); MCHC 33.5 % (32.0-36.0); MCV 96 fL (80-95); MPV 9.1 fL (8.0-11.0); Monocytes % 7.1; Neutrophils % 82.3; Platelet Count 136 10^3/uL (130-400); RBC 3.26 10^6/uL (3.93-5.22); RDW 12.5 % (11.7-14.6); RDW-SD 43.9 fL; WBC 6.22 10^3/uL (4.4-10.8)
[2023-05-08 04:04] LABS: ALT 17 U/L (14-59); AST 31 U/L (15-37); Albumin 3.5 g/dL (3.4-5.0); Alkaline Phosphatase 89 U/L (46-116); Anion Gap 10.8 mmol/L (3-11); BUN 29 mg/dL (7-18); Bilirubin, Total 0.6 mg/dL (0.2-1.0); CO2 22.2 mmol/L (21.0-32.0); CREATININE 1.1 mg/dL (0.55-1.02); Calcium 9.8 mg/dL (8.5-10.1); Chloride 102 mmol/L (98-107); Estimated GFR 55.07 (mL/min/1.73m2); Glucose 133 mg/dL (74-106); NT-proBNP 17323 pg/mL (<300); Potassium 4.1 mmol/L (3.5-5.1); Sodium 135 mmol/L (136-145); Total Protein 7.3 g/dL (6.4-8.2)
[2023-05-08] MEDS: Furosemide 20 MG/2 ML VIAL IVP (04:05)
[2023-05-08 04:09] LABS: Troponin I 1358 ng/L (<or=60)
[2023-05-08 04:30] LABS: D-Dimer 1183 ng/mlFEU (<500)
--- NOTE | 2023-05-08 04:30 | DI.CT_ITS ---
Exam(s) CT CHEST PE CTA EXAM: CT CHEST PE CTA CLINICAL HISTORY: SOB w/+positive d-dimer. TECHNIQUE: Imaging Protocol: Axial CT angiography was performed with multi-slice acquisition and mu lti-planar and/or 3D reconstructions. CONTRAST MATERIAL: Intravenous: Omnipaque 350 contrast volume:100 mL COMPARISON: CT CHEST ABD PELVIS WITH CONTRAST from 06/19/2016 CR,XR XR PORTABLE CHEST AP from 05/08/2023 FINDINGS: Tracheobronchial tree: Patent where visualized. Pulmonary parenchyma: There are moderate size bilateral pleural effusions and subjacent infiltrates. These infiltrates may represent atelectasis or pneumonia. There is inter and interlobular interstit ial thickening which and diffuse bronchial wall thickening. Ground-glass opacities are seen in the l ungs. No architectural distortion. Pulmonary Arteries: No evidence of filling defect to suggest pulmonary emboli. Mediastinum and Nicole: No dominant adenopathy or fluid collection. The esophagus is unremarkable. Visualized thyroid gland: Unremarkable. Pleura: No pneumothorax. Heart: Mild cardiomegaly. There is an aortic valve replacement. There is calcification of the cj l annulus. Coronary artery calcification is present. No significant pericardial effusion is present . Aorta: Thoracic aorta non-dilated. Atherosclerosis is present. Upper abdomen: Status post cholecystectomy. There is again seen a hypodensity in the dome of the ri ght lobe of the liver. Evaluation of the liver is limited due to lack of IV contrast. Soft tissues: Unremarkable. Bones: Within normal limits for the patient's age.Sternal wires are in place. IMPRESSION: 1. No evidence of pulmonary embolism, thoracic aortic dissection or aneurysm. 2. Cardiomegaly, bilateral pleural effusions and interstitial thickening suggesting CHF. Please ayla elate clinically. Atypical or viral pneumonia cannot be entirely excluded. RADIATION DOSE DELIVERED: 372.18mGy.cm Total DLP DATA REPOSITORY: All CT scans at this facility are submitted to the National Radiology Data Registry (NRDR) Dose Index Registry (DIR) with the [employer] (ACR). RADIATION OPTIMIZATION: All CT scans at this facility use at least one of these dose optimization te chniques: automated exposure control; mA and/or kV adjustment per patient size (includes targeted exa ms where dose is matched to clinical indication); or iterative reconstruction.
[2023-05-08] MEDS: Heparin in 0.45% NaCl 25,000 UNIT/250 ML BAG 9.5 UNIT IV (04:47)
[2023-05-08 04:54] LABS: Lactate 1.6 mmol/L (0.6-1.4)
--- NOTE | 2023-05-08 05:17 | DI.VRAD_ITS ---
PROCEDURE INFORMATION: Exam: XR Chest Exam date and time: 05/08/2023 4:11 AM Age: 67 years old Clinical indication: Pain; Chest pressure TECHNIQUE: Imaging protocol: Radiologic exam of the chest. Views: 1 view. COMPARISON: CR XR CHEST 2V PA LATERAL 05/09/2021 10:00 AM FINDINGS: Lungs: Pulmonary interstitial thickening with patchy predominantly central ground-glass opacities. Pleural spaces: No definite pleural effusion. No pneumothorax. Heart/Mediastinum: Cardiomegaly. Bones/joints: No acute findings. Median sternotomy wires. Degenerative changes of the shoulders and spine. IMPRESSION: Findings favor CHF exacerbation. Superimposed infection is not excluded. Dictated and Authenticated by: Anna Orozco MD. Ordering:VIJAYA Dowling MD
[2023-05-08] MEDS: Normal Saline Flush 10 ML SYR IVP (05:22)
[2023-05-08] MEDS: Normal Saline - Diluent 50 ML VIAL IJ (05:22)
[2023-05-08] MEDS: Omnipaque 350 MG/ML 100 ML BTL IJ (05:22)
--- NOTE | 2023-05-08 05:35 | DI.VRAD_ITS ---
PROCEDURE INFORMATION: Exam: CTA Chest With Contrast Exam date and time: 05/08/2023 5:17 AM Age: 67 years old Clinical indication: Pain; Chest pressure; Patient HX: Elevated d dimer TECHNIQUE: Imaging protocol: Computed tomographic angiography of the chest with contrast. Exam focused on the arteries. 3D rendering (Not supervised by radiologist): MIP and/or 3D reconstructed images were created by the technologist. Radiation optimization: All CT scans at this facility use at least one of these dose optimization techniques: automated exposure control; mA and/or kV adjustment per patient size (includes targeted exams where dose is matched to clinical indication); or iterative reconstruction. COMPARISON: CR XR PORTABLE CHEST AP 05/08/2023 4:11 AM FINDINGS: Pulmonary arteries: Normal. No pulmonary emboli. Aorta: No aneurysm. Lungs: Inter and intralobular pulmonary interstitial thickening. Basilar atelectasis. Diffuse bronchial wall thickening. There are scattered, small predominantly peribronchovascular ground-glass opacities. Pleural spaces: Moderate right and small left pleural effusions. Heart: Cardiomegaly. No pericardial effusion. Moderate coronary artery calcifications. Aortic and mitral valvular replacement. Lymph nodes: No enlarged lymph nodes. Bones/joints: No acute fracture. Soft tissues: Unremarkable. IMPRESSION: 1. No pulmonary embolism. 2. Cardiomegaly, bilateral pleural effusions, and diffuse pulmonary interstitial thickening. Favor CHF exacerbation. Superimposed atypical or viral pneumonia is not entirely excluded. Dictated and Authenticated by: Anna Orozco MD. Ordering:VIJAYA Dowling MD
--- NOTE | 2023-05-08 07:14 | ED.PROG_ITS ---
Date of service: 05/08/23 Time of Service: 07:20 Medical Decision Making This patient was signed out to me. Please see previous notes for H&P and initial eval. In brief, 67yo F with new systolic heart failure, critical aortic stenosis, [place] [facility] and pending bed availability. At 0700 found to be newly hypotensive (MAPS acceptable >65 over night); will get additional access. [facility] updated, advised no pressors at this time as patient is mentating well and clinically perfusing, has baseline low blood pressures; bed now available, [facility] availability TBD. Will transport via [facility] as they are available now. Signed out at 0730 pending [facility] arrival. On my assessment patient remains alert, mentating well. [facility] to bedside at 0745, patient transported [place] [facility] Discharge Plan Disposition Patient Disposition: Transfer-Acute Inpatient Care Specific Acute Inpt Facility: [facility] Condition: Critical Discharge Details Clinical Impression: Acute hypoxic respiratory failure, Acute systolic (congestive) heart failure, Critical aortic valve stenosis, Myocardial injury, First degree atrioventricular block Primary Care Provider: Magdalena Acosta ED Provider: Monica Serna Home Meds and New Rx's Prescriptions: No Action amoxicillin 500 mg capsule 2,000 mg PO PRN PRN Patient Comments: Prior to dental procedures [facility] Rx Instructions: Before dental appointments. (DME) blood-glucose meter [facility] See Rx Instructions .ROUTE .MEDSUPPLY Qty: 1 0RF Rx Instructions: As directed to check blood glucose daily. No insulin. Dispense covered brand. (DME) Blood Glucose Test Strip See Rx Instructions .ROUTE .MEDSUPPLY Qty: 100 3RF Rx Instructions: As directed to check blood glucose daily. No insulin. Dispense covered brand. (DME) lancets Misc See Rx Instructions .ROUTE .MEDSUPPLY Qty: 100 3RF Rx Instructions: As directed to check blood glucose daily. No insulin. Dispense covered brand. cyanocobalamin (vitamin B-12) 1,000 mcg capsule 500 mcg PO DAILY aspirin [Aspir-81] 81 MG tablet,delayed release (DR/EC) 81 mg PO DAILY multivitamin [Daily Multi-Vitamin] 1 EACH tablet 1 ea PO DAILY acetaminophen 500 MG tablet 1,000 mg PO Q6H PRN doxycycline hyclate 50 mg tablet 50 mg PO DAILY Patient Comments: pt states no longer taking. Rx Instructions: #30 R1 note dated 11/11/20 [facility] atorvastatin 10 mg tablet 10 mg PO DAILY Qty: 90 3RF nystatin 100,000 unit/gram powder 1 applic topical BID Qty: 60 0RF diltiazem HCl 180 mg capsule,extended release 24hr 180 mg PO DAILY Qty: 90 3RF losartan 25 mg tablet 25 mg PO DAILY Qty: 90 3RF Patient Comments: pt states no longer taking spironolactone 25 mg tablet 12.5 mg PO DAILY Qty: 45 3RF Rx Instructions: Dr. Burrell meloxicam 15 mg tablet 15 mg PO DAILY Qty: 30 1RF Rx Instructions: Take one tablet daily for inflammation and pain hydroxychloroquine 200 mg tablet 200 mg PO DAILY Patient Comments: pt states unsure if this is the correct dose, but this is what is listed in her chart 05/08/23
[2023-05-08 07:55] LABS: Troponin I 2099 ng/L (<or=60)
== END 2023-05-08 08:25 | disposition short-term general hospital (02) ==
PROVIDERS: Emergency Medicine; Emergency Provider Student in an Organized Health Care Education/Training Program; PCP Family Medicine
DX: J96.01 Acute respiratory failure with hypoxia (principal); I50.21 Acute systolic (congestive) heart failure; I35.0 Nonrheumatic aortic (valve) stenosis; I5A Non-ischemic myocardial injury (non-traumatic); I44.0 Atrioventricular block, first degree
CPT/HCPCS: 71275; 80053; 93005; 96365; 96366; 96375; 96376; 99291; 71045; 83605; 83880; 84484; 85025; 85379; 93010; J1941; J3490

== ENCOUNTER 2023-05-28 13:56 | Outpatient (RCR) | payer MEDICARE, BC, SELFPAY | END 2023-06-01 23:59 | disposition home or self-care (01) | LOC: CR 13:56 | PROVIDERS: PCP Family Medicine; Visit Provider Internal Medicine Cardiovascular Disease | DX: Z95.3 Presence of xenogenic heart valve (principal) ==

== ENCOUNTER 2023-06-30 13:27 | Outpatient (RCR) | payer MEDICARE, BC, SELFPAY | END 2023-07-01 23:59 | disposition home or self-care (01) | LOC: CR 13:27 | PROVIDERS: PCP Family Medicine; Visit Provider Internal Medicine Cardiovascular Disease | DX: I35.0 Nonrheumatic aortic (valve) stenosis (principal); Z95.2 Presence of prosthetic heart valve; Z51.89 Encounter for other specified aftercare | CPT/HCPCS: S9472 ==

== ENCOUNTER 2023-07-30 13:11 | Outpatient (RCR) | payer MEDICARE, BC, SELFPAY | END 2023-08-01 23:59 | disposition home or self-care (01) | LOC: CR 13:11 | PROVIDERS: PCP Family Medicine; Visit Provider Internal Medicine Cardiovascular Disease | DX: I35.0 Nonrheumatic aortic (valve) stenosis (principal); Z95.2 Presence of prosthetic heart valve; Z51.89 Encounter for other specified aftercare | CPT/HCPCS: S9472 ==

== ENCOUNTER → 2023-08-16 10:07 | Outpatient (BNVA) | payer MEDICARE, BC, SELFPAY | PROVIDERS: PCP Family Medicine; Referring Provider Family Medicine; Visit Provider Student in an Organized Health Care Education/Training Program | DX: M17.11 Unilateral primary osteoarthritis, right knee (principal) | CPT/HCPCS: 99213 ==

== ENCOUNTER 2023-09-01 13:32 | Outpatient (RCR) | payer MEDICARE, BC, SELFPAY | END 2023-09-01 23:59 | disposition home or self-care (01) | LOC: CR 13:32 | PROVIDERS: PCP Family Medicine; Visit Provider Internal Medicine Cardiovascular Disease | DX: I35.0 Nonrheumatic aortic (valve) stenosis (principal); Z95.4 Presence of other heart-valve replacement; Z51.89 Encounter for other specified aftercare | CPT/HCPCS: S9472 ==

== ENCOUNTER → 2023-09-06 13:52 | Outpatient (BNVA) | payer MEDICARE, BC, SELFPAY | PROVIDERS: PCP Family Medicine; Referring Provider Family Medicine; Visit Provider Internal Medicine Interventional Cardiology | DX: I42.8 Other cardiomyopathies (principal); I50.9 Heart failure, unspecified; Z95.3 Presence of xenogenic heart valve; Z95.2 Presence of prosthetic heart valve | CPT/HCPCS: 99213 ==

== ENCOUNTER 2023-09-15 13:00 | Outpatient (RCR) | payer MEDICARE, BC, SELFPAY | END 2023-09-30 23:59 | disposition home or self-care (01) | LOC: CR 13:00 | PROVIDERS: PCP Family Medicine; Visit Provider Internal Medicine Cardiovascular Disease | DX: I35.0 Nonrheumatic aortic (valve) stenosis (principal); Z51.89 Encounter for other specified aftercare | CPT/HCPCS: S9472 ==

== ENCOUNTER → 2023-09-17 09:24 | Outpatient (BNVA) | payer MEDICARE, BC, SELFPAY | PROVIDERS: PCP Family Medicine; Referring Provider Family Medicine | DX: M17.11 Unilateral primary osteoarthritis, right knee (principal) | CPT/HCPCS: 20610; J1040 ==

== ENCOUNTER → 2023-09-27 03:32 | Outpatient (CLI) | payer MEDICARE, BC, SELFPAY ==
--- NOTE | 2023-09-27 14:30 | DI.US_ITS ---
APPROVED REPORT EXAM: Comprehensive 2D, Doppler, and color-flow Echocardiogram Patient Location: Out-Patient Knife Sharpener: Robson Palma RDCS (AE) Indications: Nonischemic MANAGER HARDWARE, CHF Conclusion Mild concentric left ventricular hypertrophy. Ejection fraction is 50 to 55%. There are no segmenta l wall motion abnormalities Mildly dilated right ventricle with normal systolic function Left atrium is mildly dilated. Right atrial size is normal There is a bioprosthetic aortic valve. Mean gradient is 15 mmHg. There is no aortic regurgitation Mitral annular calcification, thickened mitral leaflet, moderate mitral regurgitation Normal tricuspid valve with mild regurgitation. Estimated right ventricular systolic pressure is 17 mmHg Wall motion Left Ventricle The left ventricle is normal size. The left ventricular systolic function is normal. The left ventric ular ejection fraction is within the normal range. Mild concentric left ventricular hypertrophy. Ther e is normal LV segmental wall motion. There is no ventricular septal defect visualized. LVEF is 50-55 %. Right Ventricle Right ventricle is mildly dilated. The right ventricular systolic function is normal. Atria Left atrium is mildly dilated. The right atrium size is normal. Atrial septal aneurysm is present wit hout PFO. Aortic Valve Bioprosthetic aortic valve is present. Peak aortic valve gradient is 24.06 mmHg. Highest mean aortic valve gradient is 15.05 mmHg. Calculated GEOVANNA by the continuity equation is 1.0 cm2. No aortic regurgi tation is present. Mitral Valve Moderate mitral annular calcification. Mitral valve leaflets are mildly thickened. No evidence of efrain ral valve stenosis. Moderate mitral regurgitation. Tricuspid Valve The tricuspid valve is normal in structure. There is no tricuspid valve stenosis. Mild tricuspid regu rgitation. The RVSP is 17.4 mmHg. Pulmonic Valve The pulmonary valve is normal in structure. There is no pulmonic valvular stenosis. There is no pulmo beverley valvular regurgitation. Great Vessels The aortic root is normal in size. Ascending aorta is not well visualized. Aortic arch is not well vi sualized. IVC is normal in size and collapses >50% with inspiration. Pericardium There is no pericardial effusion. 2D Dimensions IVSD d PLAX 1.21 cm F: 0.6-1.0 Ao Root d 2.19 cm F: 2.7 - 3.3 LVPW d PLAX 1.15 cm F: 0.6 - 1.0 LVID d PLAX 4.55 cm F: 3.8 - 5.2 LVDs 3.27 cm F: 2.2 - 3.5 LV EF Teichholz 54.6 % FS 28.18 % LV EDV (Teich) 94.8 mL LV ESV (Teich) 43.0 mL Stroke Vol Index (Teich) 29.56 M-Mode TAPSE 1.77 cm (M/F) >1.7 Auto EF LV EDV A4C 152.2 mL LV EDV A2C 152.4 mL LV EDV BP 157.1 mL LV ESV A4C 73.2 mL LV ESV A2C 72.5 mL LV ESV BP 75.7 mL LVEF(%) A4C 51.9 % LVEF(%) A2C 52.4 % LVEF(%) BP 51.8 % LV SV A4C 79.0 ml LV SV A2C 79.9 ml LV SV BP 81.3 ml LV CO A4C 5.1 L/min LV CO A2C 5.1 L/min LV CO BP 5.1 L/min HR A4C 65.20 BPM HR A2C 64.18 BPM LV EDV Index (BP) LA Volume LA Length A4C 5.1 cm LA Length A2C 4.2 cm LA Area A4C s 16.51 cm2 LA Area A2C s 12.86 cm2 LA Vol A4C A-L 45.70 mL LA Vol A2C A-L 33.81 mL LA Vol Biplane A-L 43.4 mL LA Vol/BSA A4C A-L LA Vol/BSA A2C A-L LA Vol/BSA BP A-L 24.8 mL/m2 LA Vol A4C MOD 43.0 mL LA Vol A2C MOD 32.8 mL LA Vol BP MOD 41.2 mL RA Volume RA Area A4C 10.9 cm2 RA ESV A4C (A-L) 21.8mL RA Vol/BSA A4C A-L RA Length A4C 4.6 cm RA ESV A4C (MOD) 21.2mL LV Diastology MV E' medial 0.059 (>0.07 m/s) MV E Vmax 0.67 (0.4-1.3 m/s) MV E/E' MED 11.40 (<14) MV A Vmax 0.95 (0.4-1.3 m/s) MV E' lateral 0.080 (>0.1 m/s) E/A Ratio 0.7 MV E/E' LAT 8.39 (<14) MV E' Average 0.069 m/s MV E/E'(average) 9.66 Aortic Valve AoV Vmax 2.45 m/s LVOT Vmax 1.10 m/s AoV Peak Grad 24.1 mmHg LVOT Peak Grad 4.9 mmHg AoV Area (Vmax) 0.98 cm2 LVOT VTI 0.230 m AoV VTI 0.526 m LVOT Mean Grad 3.0 mmHg AoV Mean Donal. 1.83 m/s LVOT SV 50.46 mL AoV Mean Grad 15.0 mmHg LVOT Diam s 1.65 cm AoV Area (VTI) 0.96 cm2 Velocity Ratio 0.45 Mitral Valve MV DT 314 (160-240 msec) MR Vmax 5.11 m/s MV Vmax TIPS 1.03 m/s MR VTI 1.771 m MV Mean Grad 1.8 (<2mmHg) MR Peak Grad 104.5 mmHg MV VTI 0.372 m MR Mean Grad 70.6 mmHg MR PISA Radius 0.64 cm MR Aliasing Velocity 0.30 m/s Pulmonary Valve PV Vmax 0.66 (0.5-1.5 m/s) RVOT Vmax 0.48 m/s PV Peak Grad 1.7 mmHg RVOT Peak Gr. 0.9 mmHg PV Mean Donal 0.47 m/s RVOT VTI 0.097 m PV Mean Grad 1.0 mmHg RVOT Mean Gr. 0.6 mmHg Tricuspid Valve RA Pressure 3.00 mmHg TR Vmax 1.90 m/s TR Peak Grad 14.3 mmHg RVSP (TR) 17.4 mmHg
== END ==
PROVIDERS: PCP Family Medicine; Visit Provider Internal Medicine Interventional Cardiology
DX: I50.9 Heart failure, unspecified (principal)
CPT/HCPCS: 93306

== ENCOUNTER → 2023-10-18 13:35 | Outpatient (BNVA) | payer MEDICARE, BC, SELFPAY | PROVIDERS: PCP Family Medicine; Referring Provider Family Medicine; Visit Provider Internal Medicine Cardiovascular Disease | DX: I42.8 Other cardiomyopathies (principal); Z95.3 Presence of xenogenic heart valve | CPT/HCPCS: 99213 ==

== ENCOUNTER 2023-10-28 14:08 | Outpatient (RCR) | payer SELFPAY ==
[2023-10-07 14:39] VITALS: BP 99/58; PULSE 82
[2023-10-14 14:22] VITALS: BP 124/51; PULSE 79
[2023-10-19 14:00] VITALS: BP 94/44; PULSE 90
[2023-10-21 14:02] VITALS: BP 111/52; PULSE 72
[2023-10-26 15:57] VITALS: BP 105/46; PULSE 84
[2023-10-28 14:17] VITALS: BP 108/50; PULSE 81
== END 2023-10-31 23:59 | disposition home or self-care (01) ==
LOC: CR 14:08
PROVIDERS: PCP Family Medicine; Visit Provider Internal Medicine Cardiovascular Disease
DX: R69 Illness, unspecified (principal)

== ENCOUNTER 2023-11-30 14:16 | Outpatient (RCR) | payer SELFPAY ==
[2023-11-02 14:20] VITALS: BP 115/61; PULSE 78
[2023-11-04 14:42] VITALS: BP 124/79; PULSE 77
[2023-11-09 14:07] VITALS: BP 111/60; PULSE 87
[2023-11-11 13:49] VITALS: BP 113/60; PULSE 100
[2023-11-16 14:04] VITALS: BP 111/55; PULSE 83
[2023-11-18 14:03] VITALS: BP 105/49; PULSE 89
[2023-11-25 14:14] VITALS: BP 106/52; PULSE 85
[2023-11-30 15:30] VITALS: BP 116/64; PULSE 84
== END 2023-11-30 23:59 | disposition home or self-care (01) ==
LOC: CR 14:16
PROVIDERS: PCP Family Medicine; Visit Provider Internal Medicine Cardiovascular Disease
DX: R69 Illness, unspecified (principal)

== ENCOUNTER 2023-12-30 15:24 | Outpatient (RCR) | payer SELFPAY ==
[2023-12-01 00:14] VITALS: BP 116/64; PULSE 84
[2023-12-07 14:24] VITALS: BP 105/64; PULSE 86
[2023-12-09 14:37] VITALS: BP 109/50; PULSE 75
[2023-12-14 15:00] VITALS: BP 107/55; PULSE 85
[2023-12-16 14:05] VITALS: BP 104/60; PULSE 87
[2023-12-21 14:00] VITALS: BP 118/53; PULSE 75
[2023-12-23 14:36] VITALS: BP 116/59; PULSE 82
[2023-12-28 14:44] VITALS: BP 108/53; PULSE 90
[2023-12-30 15:29] VITALS: BP 126/58; PULSE 84
== END 2023-12-31 23:59 | disposition home or self-care (01) ==
LOC: CR 15:24
PROVIDERS: PCP Family Medicine; Visit Provider Internal Medicine Cardiovascular Disease
DX: R69 Illness, unspecified (principal)

== ENCOUNTER 2024-01-17 10:09 | Outpatient (CLI) | payer MEDICARE, BC, SELFPAY ==
[2024-01-17 10:23] VITALS: BP 121/65; PULSE 91; RESP 20; TEMP 36.5; O2SAT 100
[2024-01-17 10:48] VITALS: O2SAT 100
[2024-01-17 10:50] VITALS: O2SAT 100
--- NOTE | 2024-01-17 10:59 | DI.RAD_ITS ---
Exam(s) XR PAIN CLINIC FLUORO JOINT IN EXAM: XR PAIN CLINIC FLUORO JOINT IN CLINICAL HISTORY: DX: Right knee Osteoarthritis. TECHNIQUE: Fluoroscopy was provided for the referring physician for guidance with performing pain cl inic injection procedure. COMPARISON: No exams were available for comparison FINDINGS: Please see procedure note for details. Fluoro time: 39.8 seconds RADIATION DOSE DELIVERED: gilmer Coronado=2.11 mGy
--- NOTE | 2024-01-17 10:59 | PDOC.PAIN ---
Date of service: 01/17/24 Time of Service: 10:59 Pain Managment Procedure Note Procedure Note Procedure Note: PROCEDURE NOTE RIGHT GENICULAR NERVE BLOCKS Date of Service: January 17, 2024 Patient: Purnima Thacker Provider: Cullen Jane DO, MPH Purnimakary Thacker has been referred to the [facility] for Right genicular nerve block. Pre-operative diagnosis: Pain in right knee M25.561 Post-operative diagnosis: Same Pre-Procedure Pain: VAS=6/10 COMMENTS: I previously evaluated her in the clinic. PROCEDURE: 1. Block of the Superolateral genicular branch from the vastus lateralis 2. Block of the Superomedial genicular branch from the vastus medialis 3. Block of the Inferomedial genicular branch from the saphenous nerve 4. Block of the Terminal branch of the nerve vastus intermedius Purnima was interviewed and the medical record reviewed. There were no medical, pharmacologic, radiographic or other structural contraindications to attempting fluoroscopically guided Right genicular nerve block. Risks and potential side effects as well as potential benefit of the procedure were reviewed with Purnima Thacker , and the patient's voiced concerns were addressed. After I believed that the patient was completely informed, the printed consent form was signed. Standard time-out procedure was performed. After a thorough Chlorhexadine preparation of the skin and draping the skin entry points for approaching Right superolateral genicular nerve, the superomedial genicular nerve, nerve of the vastus intermedius and the inferomedial genicular was identified under the most advantageous fluoroscopic view and marked. Next, 3.5 25G spinal needle was advanced to os at the location of the specific nerve root using fluoroscopic guidance. Next 0.5 cc of 0.5% Bupivacain was injected at each site. There was no unusual discomfort expressed by Purnima. The needles were withdrawn without difficulty. Purnima was observed and was without hemodynamic, neurologic, or allergic reactions.? Fluoroscopic images were digitally archived. Purnima's vital signs were stable throughout the procedure and were as recorded in the docflowsheet by the nursing staff. If given, dosages of intravenous drugs for anxiolysis and analgesia were documented in MAR. Follow up plans and appointments were discussed. Purnima was instructed to keep careful note of how the usual pain was modified by these injections. Specifically, Purnima was asked to keep a pain diary for the next 4 hours using a numeric pain scale of 0-10 and report these results. Post procedure instruction was given as documented in nursing documentation and having met discharge criteria, Purnima was discharged from the [facility]. COMMENTS: No apparent complications. Post-procedure pain: VAS= 0/10. Purnima will call back with 0-4 hour post-procedure pain scores. I personally completed the entire procedure. CULLEN JANE DO, MPH ABPM&R - Subspecialty board certification in Pain Medicine [facility]
[2024-01-17] MEDS: Bupivacaine 0.5% Pres-Free 10 ML VIAL IJ (11:25)
[2024-01-17] MEDS: Nerve Block Tray 1 EACH MC (11:25)
[2024-01-17] MEDS: Omnipaque 240 MG/ML 50 ML BTL IJ (11:25)
== END 2024-01-17 10:10 | disposition home or self-care (01) ==
LOC: PC 10:09
PROVIDERS: PCP Family Medicine; Visit Provider Preventive Medicine Occupational Medicine
DX: M25.561 Pain in right knee (principal)
CPT/HCPCS: 64454; 64510; 77002; J0665; Q9967

== ENCOUNTER 2024-01-27 14:50 | Outpatient (RCR) | payer SELFPAY ==
[2024-01-04 14:06] VITALS: BP 135/62; PULSE 86
[2024-01-06 14:16] VITALS: BP 105/72; PULSE 62
[2024-01-11 14:35] VITALS: BP 118/57; PULSE 80
[2024-01-13 15:24] VITALS: BP 115/60; PULSE 71
[2024-01-18 14:56] VITALS: BP 95/60; PULSE 93
[2024-01-20 14:15] VITALS: BP 109/40; PULSE 86
[2024-01-25 14:19] VITALS: BP 117/62; PULSE 59
[2024-01-27 14:52] VITALS: BP 103/54; PULSE 86
== END 2024-01-30 23:59 | disposition home or self-care (01) ==
LOC: CR 14:50
PROVIDERS: PCP Family Medicine; Visit Provider Internal Medicine Cardiovascular Disease
DX: R69 Illness, unspecified (principal)

== ENCOUNTER → 2024-01-31 09:34 | Outpatient (BNVA) | payer MEDICARE, BC, SELFPAY | PROVIDERS: PCP Family Medicine; Referring Provider Family Medicine | DX: M17.11 Unilateral primary osteoarthritis, right knee (principal) | CPT/HCPCS: 20610; J1010 ==

== ENCOUNTER → 2024-02-24 11:31 | Outpatient (BNVA) | payer MEDICARE, BC, SELFPAY | PROVIDERS: PCP Family Medicine; Referring Provider Family Medicine; Visit Provider Surgery | DX: D64.9 Anemia, unspecified (principal); K42.9 Umbilical hernia without obstruction or gangrene; I42.8 Other cardiomyopathies; I63.9 Cerebral infarction, unspecified; I35.0 Nonrheumatic aortic (valve) stenosis | CPT/HCPCS: 99215 ==

== ENCOUNTER 2024-02-24 13:54 | Outpatient (CLI) | payer MEDICARE, BC, SELFPAY ==
--- OUTSIDE RECORDS SUMMARY | 2024-02-24 13:57 | XMS_ITS | Encounter Summary ---
Author Organization [facility] Address [address] [place] [address] Care Team Providers Care Aromatherapist Name Role Phone Unavailable Primary Care Provider Unavailabl e Encounter Details Date Type Department Care Team (Late st Contact Info) Description 03/24/2007 Results Only [facility] Non-Invasive Cardiology - [facility] [address], [place] [address] Ashley Chavez ARNP [address] [place] [address] Social History Tobacco Use Types Packs/Day Years [...] ? 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 Accession #: ? [id number] : ? 1955 (Age: 51) ??F ?Collect Date: ? 03/24/2007 Location: ? [facility] ? Receive Date: ? 03/28/2007 Provider: ?ASHLEY THOMAS Copy to: ? Specimen/Source: ?ThinPrep Pap Test, [employer]ix, processed on [employer] ThinPrep Imaging System, with manual evaluation Last [...] Ashley THOMAS PATHOLOGY ORDERABLES PAUL ARELLANO [address] [place] [address] documented in this encounter Visit Diagnoses Not on filedocumented in this encounter
--- OUTSIDE RECORDS SUMMARY | 2024-02-24 13:57 | XMS_ITS | Encounter Summary ---
Author Organization [facility] [place] [address] Care Team Providers Care Director [employer] Name Role Phone Magdalena Acosta MD Primary Care Provider [phone] Reason for Referral * Diagnostic Test (Routine) - New Request Specialty Diagnoses / Procedures Referred By Contac t Referred To Contact Cardiology Diagnoses S/P TAVR (transcatheter aortic valve replacement) Procedures Echocardiogram Transthoracic Antelmo Sharma MD [facility] [place] [address] [facility] [place] [address] Referral ID Status Reason Start Date Expiration Date Visits Requested Visits Authorized [id number] New Request Specialty Service Requested 12/16/2023 12/15/2024 1 1 Encounter Details Date Type Department Care Team (Late st Contact Info) Description 12/16/2023 Orders Only Cardiology at [address] [address] Antelmo Sharma MD [facility] [place] [address] S/P TAVR (transcatheter aortic valve replacement) [...] Care Team (Late st Contact Info) Description 06/05/2024 11:30 AM EST Office [place] [address] Magdalena Peralta MD [facility] [place] [address] 03/01/2025 4:15 PM EDT Office Visit Dermatology at [place] [address] [facility] [place] [address] Marek Bonilla MD [address] [facility] [place] [address] Scheduled Orders Name Type Priority Associated Diagnoses [...] replacement) documented in this encounter Care Teams Director [employer] Relationship Specialty Start Date End Date Magdalena Acosta MD [address] [place] [address] PCP - General Family Medicine 02/05/23 documented as of this encounter
--- OUTSIDE RECORDS SUMMARY | 2024-02-24 13:57 | XMS_ITS | Encounter Summary ---
Author Organization [facility] Address [address] [place] [address] Care Team Providers Care Glazier Structural Glass Name Role Phone Unavailable Primary Care Provider Unavailabl e Encounter Details Date Type Department Care Team (Late st Contact Info) Description 03/24/2007 11:06 EDT - 03/24/2007 11:59 EDT Hospital Encounter [facility] - Other [address] [place] [address] Ashley Chavez ARNP [address] [place] [address] Discharge Disposition: Home or Self Care Social [...]
--- OUTSIDE RECORDS SUMMARY | 2024-02-24 13:57 | XMS_ITS | Encounter Summary ---
Author Organization [facility] Address [facility] [place] [address] Care Team Providers Care Yarn Conditioner Name Role Phone Magdalena Acosta MD Primary Care Provider [phone] Reason for Visit * Reason Comments Aortic Stenosis Coronary Artery Disease Hypertension Encounter Details Date Type Department Care Team (Latest Contact Info) Description 11/16/2023 11:40 AM EDT TH Visit (TeleHealth) Cardiology at [address] [place] [address] [place] [address] Aortic valve stenosis, etiology of cardiac valve disease unspecified; Coronary artery disease, unspecified vessel or lesion type, unspecified whether angina present, unspecified whether [place] or transplanted heart Social History Tobacco Use Types Packs/Day Years Used Date Smoking Tobacco: Never Smokeless Tobacco: Never Alcohol Use Standard Drinks/Week Comments No 0 (1 standard drink = 0.6 oz pur e alcohol) none [facility] Inpatient Questions Answer Date Recorded [...] from the original note were not included. [facility] Interventional Cardiology CARDIOLOGY TELE VISIT NOTE 11/16/23 Patient: Purnima Thacker Prior to the initiation of our discussion, the risks and benefits of tele health visits were discussed, and the patient consented verbally to this being a virtual telehealth visit in lieu of an in person office visit. CARDIOLOGISTS: Antelmo Sharma MD ([facility]) Maria Luz Mejia MD ([facility] - [facility]) Problem List: [...] Mild coronary artery disease by [facility] 11/09/2022 I25.10 Heart failure with [...] notable for coronary artery protection given low izvlo-eu-fqgybywd distance. There was no obstruction post Valve [...] leads Confirmed by MD Harshil, Haris Bell ([id number]) on 05/10/2023 8:11:46 AM Cardiac Cath 11/09/2022 [...] in one year. EKATERINA Thompson Time spent: [id number] 0-5min [id number] 6-10min 7531HVF4 11-15min x [id number] 16-20min 0044KKJ4 21-30min [id number] 31-40min [id number] 40+ min Jay Maza PA-C Interventional Cardiology [facility] Pager [phone] documented in this encounter Plan of Treatment Upcoming Encounters Date Type Department Care Team (Late st Contact Info) Description 06/05/2024 11:30 AM EST Office [place] [address] Magdalena Peralta MD [facility] [place] [address] 03/01/2025 4:15 PM EDT Office Visit Dermatology at [place] [address] [place] [address] Marek Bonilla MD [address] [facility] [place] [address] documented as of this encounter Visit Diagnoses Diagnosis Aortic valve stenosis, etiology of cardiac valve disease unspecified Coronary artery disease, unspecified vessel or lesion type, unspecified whether angina present, unspecified whether [place] or transplanted heart documented in this encounter Care Teams Yarn Conditioner Relationship Specialty Start Date End Date Magdalena Acosta MD [address] [place] [address] PCP - General Family Medicine 02/05/23 documented as of this encounter
--- OUTSIDE RECORDS SUMMARY | 2024-02-24 13:57 | XMS_ITS | Encounter Summary ---
Author Organization [facility] [place] [address] Care Team Providers Care Psychiatric Registered Nurse Name Role Phone Magdalena Acosta MD Primary Care Provider Encounter Details Date Type Department Care Team (Late st Contact Info) Description 12/02/2023 11:15 AM EDT Office [place] [address] Magdalena Peralta MD [facility] [place] [address] Mixed connective tissue disease Social History Tobacco [...] 1:5120 speckled; VIC negative; Myositis panel with DISTRICT ADVISER ab 149.1 (positive); Anti U1RNP IgG 119; [...] list of questions that she sent via [facility] ahead of her visit, which [...] exposure. She has an appointment with her Deputy Clerk Of [employer] Court scheduled in January. (Dr Bonilla in [place]) ROS (positives in bold): Gen: no fevers, [...] but I encouraged her to contact her Deputy Clerk Of [employer] Court to see if she could have her [...] Dr. Tanisha Peralta MD Rheumatology Fellow Pager: [phone] * Federico Yee MD - 12/02/2023 11:15 [...] 11:30 AM EST Office [place] [address] Magdalena Peralta MD [facility] [place] [address] 03/01/2025 4:15 PM EDT Office Visit Dermatology at [address] [phone] Marek Bonilla MD [address] [facility] [place] [address] Scheduled Orders Name Type Priority Associated Diagnoses Orde r Schedule EKG 12 Lead ECG Routine Mixed connective tissue disease Expected: 12/02/2023, Expires: 06/03/2024 documented as of this encounter Visit Diagnoses Diagnosis Mixed connective tissue disease Other specified diffuse disease of connective tissue documented in this encounter Care Teams Psychiatric Registered Nurse Relationship Specialty Start Date End Date Magdalena Acosta MD [address] [place] [address] PCP - General Family Medicine 02/05/23 documented as of this encounter
--- OUTSIDE RECORDS SUMMARY | 2024-02-24 13:57 | XMS_ITS | Encounter Summary ---
Author Organization [facility] Address [address] [place] [address] Care Team Providers Care Trimmer Climber Name Role Phone Unavailable Primary Care Provider Unavailabl e Encounter Details Date Type Department Care Team (Late st Contact Info) Description 07/08/2010 10:55 EST - 07/08/2010 10:56 EST Hospital Encounter [facility] - Other [address] [place] [address] Ashley Chavez, WILLIAM [address] [place] [address] Discharge Disposition: Home or Self Care Social [...]
--- OUTSIDE RECORDS SUMMARY | 2024-02-24 13:57 | XMS_ITS | Encounter Summary ---
Author Organization [facility] Address [facility] [place] [address] Care Team Providers Care Human Resource Officer Name Role Phone Magdalena Acosta MD Primary Care Provider [phone] Reason for Visit * Reason Comments Coronary Artery Disease Hypertension Aortic Stenosis Encounter Details Date Type Department Care Team (Latest Contact Info) Description 07/20/2023 4:40 PM EST TH Visit (TeleHealth) Cardiology at [address] [place] [address] Jay Maza PA [facility] [place] [address] HFrEF (heart failure with reduced ejection fraction); [...] Maza PA - 07/20/2023 4:40 PM EST [facility] Interventional Cardiology CARDIOLOGY [...] lieu of an in person office visit. Call Person: Antelmo Sharma MD ([facility] Cards) Maria Luz Mejia MD ([facility] / [facility] cards) Problem List: : prior surgical AVR [...] fraction I35.0 Mild coronary artery disease by [facility] 11/09/2022 I25.10 Heart failure with reduced [...] notable for coronary artery protection given low xuxap-mb-jitjyxdj distance. There was no obstruction post Valve deployment, but the stent could not be removed safely, so it was deployed. 4.0 mm x 30mm in left main. She was loaded on brilinta aka ticagrelor. Immediately post valve deployment, chest compressions to circulate central epinephrine which was administered given her hypotension, low LVEF, and low cardiac reserve. Next, the patient was transferred to [facility] for pressor and inotropic support. Pressors weaned overnight. Cardiac indices by thermodilution remained greater than 3 with continued Milrinone 0.125 mcg/kg/min. EKG the next day with NSR with stable ND/QRS intervals. Hemoglobin 7.8 [...] arms and wrists. Successful right transfemoral TAVR Ufwta-ry-Mzodi with a 23 mm Lai 3 THV. [...] leads Confirmed by MD Harshil, Haris Bell ([id number]) on 05/10/2023 8:11:46 AM Cardiac Cath 11/09/2022 [...] in chart review and direct patient contact. [id number] 0-5min [id number] 6-10min [id number] 11-15min 7231DCT3 16-20min x [id number] 21-30min 1223JOC9 31-40min [id number] 40+ min Jay Maza PA-C Interventional Cardiology [facility] Pager [phone] documented in this encounter Plan of Treatment Upcoming Encounters Date Type Department Care Team (Late st Contact Info) Description 06/05/2024 11:30 AM EST Office Visit [place] [address] Magdalena Peralta MD [facility] [place] [address] 03/01/2025 4:15 PM EDT Office Visit Dermatology at [place] [address] [facility] [place] [address] Marek Bonilla MD [address] [place] [address] documented as of this encounter Visit Diagnoses Diagnosis HFrEF (heart failure with reduced ejection fraction) Hypertension, unspecified type Aortic valve stenosis, etiology of cardiac valve disease unspecified documented in this encounter Care Teams Human Resource Officer Relationship Specialty Start Date End Date Magdalena Acosta MD [address] [place] [address] PCP - General Family Medicine 02/05/23 documented as of this encounter
--- OUTSIDE RECORDS SUMMARY | 2024-02-24 13:57 | XMS_ITS | Encounter Summary ---
Author Organization [facility] Address [facility] [place] [address] Care Team Providers Care Radio Television Announcer Name Role Phone Magdalena Acosta MD Primary [...] 11:30 AM EST Office [place] [address] Magdalena Peralta MD [facility] [place] [address] 03/01/2025 4:15 PM EDT Office Visit Dermatology at [address] [phone] Marek Bonilla MD [address] [place] [address] [place] [address] documented as of this encounter Visit Diagnoses Not on filedocumented in this encounter Care Teams Radio Television Announcer Relationship Specialty Start Date End Date Magdalena Acosta MD [address] [place] [address] PCP - General Family Medicine 02/05/23 documented as of this encounter
--- OUTSIDE RECORDS SUMMARY | 2024-02-24 13:57 | XMS_ITS | Encounter Summary ---
Author Organization [facility] Address [address] [place] [address] Care Team Providers Care Design Director Name Role Phone Ashley Chavez Primary Care Provider [phone] Encounter Details Date Type Department Care Team (Late st Contact Info) Description 12/17/2021 Lab Requisition [facility] Pathology & Laboratory Medicine - [address] [address] Outr Resulting Lab, Provider Social History Tobacco [...] Lyme Ab Negative Negative 12/18/2021 10:37 EDT [facility] Blood VENOUS BLOOD / Unknown 12/17/2021 13:30 EDT 12/17/2021 21:32 EDT Provider Outr Resulting Lab IMMUNOLOGY A ND SEROLOGY ORDERABLES Performing Organization Address [facility] Co de Phone Number [facility] [address] [place] [address] * (ABNORMAL) ANTI NUCLEAR AB (FRANCISCO), IFA (12/17/2021 13:30 EDT) FRANCISCO Interpretation Positive(A) Negative 12/18/2021 16:06 EDT [facility] Comment: For titers greater than [...] Pattern 1 1:1280 Speckled 12/18/2021 16:06 EDT [facility] Blood VENOUS BLOOD / Unknown 12/17/2021 13:30 EDT 12/17/2021 21:32 EDT Narrative [facility] - 12/18/2021 16:06 EDT Results were obtained with the INOVA NOVA Lite HEp-2 FRANCISCO Kit by indirect immunofluorescence. Provider Outr Resulting Lab IMMUNOLOGY A ND SEROLOGY ORDERABLES Performing Organization Address [facility] Co de Phone Number [facility] [address] [place] [address] documented in this encounter Visit Diagnoses Not on filedocumented in this encounter Care Teams Design Director Relationship Specialty Start Date End Date Ashley Chavez ARNP [address] [place] [address] PCP - General 07/11/10 documented as of this encounter
--- OUTSIDE RECORDS SUMMARY | 2024-02-24 13:57 | XMS_ITS | Encounter Summary ---
[place] [address] Care Team Providers Care Geospatial Technologist Name Role Phone Magdalena Acosta MD Primary Care Provider [phone] Encounter Details Date Type Department Care Team (Latest Contact Info) Description 10/05/2023 10:52 AM EST - 10/05/2023 11:59 PM [facility] Encounter [place] [address] Mixed connective tissue disease Discharge Disposition: Home Social History Tobacco Use Types Packs/Day Years Used Date Smoking Tobacco: Never Smokeless Tobacco: Never Alcohol Use Standard Drinks/Week Comments No 0 (1 standard drink = 0.6 oz pur e alcohol) none [facility] Inpatient Questions Answer Date Recorded Does [...] Take 50 mg by mouth daily. 09/07/2023 spironolactone (Aldactone) 25 mg tabletIndications:HFr EF (heart [...] 75mg once daily. 90 tablet 3 07/20/2023 metoproloL tartrate (Lopressor) 25 mg tablet Take [...] experiencing pain .). 30 tablet 5 09/25/2016 multivitamin (THERAGRAN) Tablet Take 1 tablet by mouth daily. atorvastatin (LIPITOR) 10 mg Tablet Take 10 mg by mouth daily. aspirin 81 mg EC tablet Take 81 mg by mouth daily. ticagrelor (Brilinta) 90 mg tablet Take 90 mg by mouth 2 times daily. (Still taking for another 2-3 weeks 07/29/23) 11/16/2023 diclofenac (Voltaren) 1 % Gel Apply topically 4 times daily as needed. 150 g 3 07/29/2023 02/22/2024 furosemide (Lasix) 20 mg tablet Take 1 tablet by mouth daily. 90 tablet 3 05/23/2023 02/22/2024 cyanocobalamin, Vitamin B-12, (Vitamin B-12) 1,000 mcg tablet Take 500 mcg by mouth daily. 02/22/2024 documented as of this encounter Plan of Treatment Upcoming Encounters Date Type Department Care Team (Late st Contact Info) Description 06/05/2024 11:30 AM EST Office Visit [place] [address] Magdalena Peralta MD [facility] DR [place] [address] 03/01/2025 4:15 PM EDT Office Visit Dermatology at [place] [address] [place] [phone] Marek Bonilla MD [address] [facility] [place] [address] documented as of this encounter Procedures Procedure [...] PFT FEV1/FVC Pre-BD Z-Score 0 COMPAS PFT JLV88-92 Actual Pre-BD 2.41 % COMPAS PFT LUK20-87 Predicted 1.8 % COMPAS PFT WBN74-33 Pre-BD % of Predicted 134 % COMPAS PFT WPG36-24 Pre-BD Z-Score 0.81 COMPAS PFT DLCO Hb [...] tissue documented in this encounter Care Teams Geospatial Technologist Relationship Specialty Start Date End Date Magdalena Acosta MD [address] [place] [address] PCP - General Family Medicine 02/05/23 documented as of this encounter
--- OUTSIDE RECORDS SUMMARY | 2024-02-24 13:57 | XMS_ITS | Encounter Summary ---
Author Organization [facility] Address [facility] [place] [address] Care Team Providers Care Rounding And Backing Machine Operator Name Role Phone Magdalena Acosta [...] 11:30 AM EST Office [place] [address] Madgalena Peralta MD [facility] [place] [address] 03/01/2025 4:15 PM EDT Office Visit Dermatology at [address] [phone] Marek Bonilla MD [address] [place] [address] [place] [address] documented as of this encounter Visit Diagnoses Not on filedocumented in this encounter Care Teams Rounding And Backing Machine Operator Relationship Specialty Start Date End Date Magdalena Acosta MD [address] [place] [address] PCP - General Family Medicine 02/05/23 documented as of this encounter
--- OUTSIDE RECORDS SUMMARY | 2024-02-24 13:57 | XMS_ITS | Encounter Summary ---
Author Organization [facility] Address [address] [place] [address] Care Team Providers Care Line Person Name Role Phone Unavailable Primary Care Provider Unavailabl e Encounter Details Date Type Department Care Team (Late st Contact Info) Description 06/29/2007 Results Only [facility] - Maple conversion [address] [place] [address] Sánchez Acevedo MD [address] [place] [address] Social History Tobacco Use Types Packs/Day Years [...] ? 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 Accession #: ? [id number] ? : ? 1955 (Age: 51) ??F [...] covered by a smooth white serosa. ??Three traveling representative sections of the gallbladder are submitted in one cassette. ??(Sriram Elias/[facility] End of Report [facility] 06/29/2007 06/29/2007 21: 23 EST Sánchez Acevedo MD PATHOLOGY ORDERABLE [facility] [address] [place] [address] documented in this encounter Visit Diagnoses Not on filedocumented in this encounter
--- OUTSIDE RECORDS SUMMARY | 2024-02-24 13:57 | XMS_ITS | Encounter Summary ---
Author Organization [facility] Address [address] [place] [address] Care Team Providers Care Cathode Washer Name Role Phone Ashley Chavez Primary Care Provider [phone] Encounter Details Date Type Department Care Team (Late st Contact Info) Description 10/30/2022 Lab Requisition [facility] Pathology & Laboratory Medicine - [address] [address] Outr Resulting Lab, Provider Social History Tobacco [...] Stranded) <12.3 <30.0 IU/mL 11/03/2022 13:08 EDT [facility] Comment: ? Negative: ??<30.0 IU/mL ? Borderline Positive: ??30.0 - 75.0 IU/mL ? Positive: ??>75.0 IU/mL Results were obtained with the INOVA QUANTA Lite dsDNA SC DOMO assay on the Budge DSX. Blood VENOUS BLOOD / Unknown 10/29/2022 14:00 EDT 10/30/2022 19:27 EDT Provider Outr Resulting Lab IMMUNOLOGY A ND SEROLOGY ORDERABLES Performing Organization Address [facility] de Phone Number [facility] [address] [place] [address] * SM (OMRENO) ANTIBODY (10/29/2022 14:00 EDT) [facility] SM (Moreno) Antibody 18.5 <20.0 Units 11/03/2022 14:26 EDT [facility] Comment: ? Negative: <20.0 Units [...] A ND SEROLOGY ORDERABLES Performing Organization Address [facility] de Phone Number [facility] [address] [place] [address] documented in this encounter Visit Diagnoses Not on filedocumented in this encounter Care Teams Cathode Washer Relationship Specialty Start Date End Date Ashley Chavez ARNP [address] [place] [address] PCP - General 07/11/10 documented as of this encounter
--- OUTSIDE RECORDS SUMMARY | 2024-02-24 13:57 | XMS_ITS | Encounter Summary ---
[place] [address] Care Team Providers Care Paper Twister Tender Name Role Phone Magdalena Acosta MD Primary Care Provider [phone] Reason for Visit * Reason Comments Annual Exam Encounter Details Date Type Department Care Team (Late st Contact Info) Description 02/22/2024 4:15 PM EDT Office Visit Dermatology at [address] [address] Marek Bonilla MD [address] [place] [address] [place] [address] Seborrheic keratosis; Rosacea; Nevus Social History Tobacco Use Types Packs/Day [...] Progress Notes * Marek Bonilla MD - 02/22/2024 4:15 PM EDT Problem: 1. Annual skin checkup 2. Follow-up rosacea both cutaneous and ocular 3. 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 History of mildly to moderately atypical nevus left shoulder January 2023 Cheryl follows up after last being seen a year ago. Her ocular rosacea is doing very well. She is very pleased. She is no longer taking doxycycline, she is not using any eyedrops. Her rosacea has notrecurred. Physical examination reveals a pleasant 68-year-old woman who has significant clearing and fading of the telangiectatic rosacea of the cheeks and chin. Her eyes/conjunctiva appear to be noninjected and well moisturized. She has an irritated seborrheic keratosis under her right ear. Assessment plan: Rosacea cutaneous and ocular 1. In remission 2. Continue to follow Irritated seborrheic keratosis right inferior auricular neck 1. LN 2 x 2 applied to site 2. Return to clinic in a year for repeat check. CC: Deborah Quiroga APRN documented in this encounter Plan of Treatment Upcoming Encounters Date Type Department Care Team (Late st Contact Info) Description 06/05/2024 11:30 AM EST Office Visit [place] [address] Magdalena Peralta MD [facility] [place] [address] 03/01/2025 4:15 PM EDT Office Visit Dermatology at [place] [address] [place] [address] Marek Bonilla MD [address] [facility] DERMATOLOGY [place], [place] [address] documented as of this encounter Visit Diagnoses Diagnosis Seborrheic keratosis Other seborrheic keratosis Rosacea Nevus Benign neoplasm of skin, site unspecified documented in this encounter Care Teams Paper Twister Tender Relationship Specialty Start Date End Date Magdalena Acosta MD [address] [place] [address] PCP - General Family Medicine 02/05/23 documented as of this encounter
--- OUTSIDE RECORDS SUMMARY | 2024-02-24 13:57 | XMS_ITS | Encounter Summary ---
Author Organization [facility] Address [facility] [place] [address] Care Team Providers Care Aerial Planting And Cultivation Manager Name Role Phone Magdalena Acosta MD Primary Care Provider [phone] Encounter Details Date Type Department Care Team [...] 11:30 AM EST Office [place] [address] Magdalena Peralta MD [facility] [place] [address] 03/01/2025 4:15 PM EDT Office Visit Dermatology at [address] [phone] Marek Bonilla MD [address] [place] [address] [place] [address] documented as of this encounter Visit Diagnoses Not on filedocumented in this encounter Care Teams Aerial Planting And Cultivation Manager Relationship Specialty Start Date End Date Magdalena Acosta MD [address] [place] [address] PCP - General Family Medicine 02/05/23 documented as of this encounter
--- OUTSIDE RECORDS SUMMARY | 2024-02-24 13:57 | XMS_ITS | Encounter Summary ---
Author Organization [facility] Address [address] [place] [address] Care Team Providers Care Lawyer Real Estate Name Role Phone Ashley Chavez Primary Care Provider [phone] Encounter Details Date Type Department Care Team (Late st Contact Info) Description 04/29/2022 Lab Requisition [facility] Pathology & Laboratory Medicine - [address] [address] Outr Resulting Lab, Provider Social History Tobacco [...] Antibody 1.6 <20.0 Units 04/30/2022 12:[address] [facility] Comment: ? Negative: <20.0 [...] A ND SEROLOGY ORDERABLES Performing Organization Address [facility] de Phone Number [facility] [address] [place] [address] * SSA ANTIBODIES BY DOMO (04/29/2022 7:51 EDT) SSA Antibody 1.5 <20.0 Units 04/30/2022 12:[address] [facility] Comment: ? Negative: <20.0 [...] A ND SEROLOGY ORDERABLES Performing Organization Address [facility] de Phone Number [facility] [address] [place] [address] documented in this encounter Visit Diagnoses Not on filedocumented in this encounter Care Teams Lawyer Real Estate Relationship Specialty Start Date End Date Ashley Chavez ARNP [address] [place] [address] PCP - General 07/11/10 documented as of this encounter
--- OUTSIDE RECORDS SUMMARY | 2024-02-24 13:57 | XMS_ITS | Encounter Summary ---
Author Organization [facility] Address [address] [place] [address] Care Team Providers Care Social Secretary Name Role Phone Ashley Chavez Primary Care Provider [phone] Encounter Details Date Type Department Care Team (Late st Contact Info) Description 05/12/2022 Lab Requisition [facility] Pathology & Laboratory Medicine - [address] [phone] Outr Resulting Lab, Provider Social History Tobacco [...] 14:32 EDT) Hold Hold 05/12/2022 22:46 EDT [facility] Blood VENOUS BLOOD / Unknown 05/12/2022 14:32 EDT 05/12/2022 21:40 EDT Provider Outr Resulting Lab LAB INFO SER VICE AND SUPPORT & PHONE RESULT Performing Organization Address [facility] [address]/ZIP Co de Phone Number [facility] [address] [place] [address] * (ABNORMAL) HOMOCYSTEINE (05/12/2022 14:32 EDT) Homocysteine 14.7(H) 5.0 - 13.9 umol/L 05/13/2022 9:05 EDT [facility] Comment:Results may be false ly elevated if sample is not collected on ice or is not removed from cells within 1 hour of collection. Blood VENOUS BLOOD / Unknown 05/12/2022 14:32 EDT 05/12/2022 21:40 EDT Narrative [facility] - 05/13/2022 9:05 EDT [...] & BLOOD GAS ORDERABLES Performing Organization Address [facility] Co de Phone Number [facility] [address] [place] [address] * HAPTOGLOBIN (05/12/2022 14:32 EDT) Pathologist [facility] Haptoglobin 138 32 - 197 mg/dL 05/13/2022 9:55 EDT [facility] Blood VENOUS BLOOD / Unknown 05/12/2022 14:32 EDT 05/12/2022 21:36 EDT Provider Outr Resulting Lab CHEMISTRY & BLOOD GAS ORDERABLES Performing Organization Address [facility] [address]/[facility] Co de Phone Number [facility] [address] [place] [address] * (ABNORMAL) ANTI NUCLEAR AB (FRANCISCO), IFA (05/12/2022 14:32 EDT) FRANCISCO Interpretation Positive(A) Negative 05/13/2022 14:44 EDT [facility] Comment: Result is equal to or greater than 1:5120. For titers greater than or equal to 1:160 (except the centromere, nucleolar, and dense fine speckled patterns) it is recommended that specific, follow-up autoantibody testing (such as for dsDNA and Extractable Nuclear Antigens) be performed on all diffuse and/or speckled patterns. FRANCISCO Titer and Pattern 1 1:5120 Speckled 05/13/2022 14:44 EDT [facility] Blood VENOUS BLOOD / Unknown 05/12/2022 14:32 EDT 05/12/2022 21:36 EDT Narrative [facility] - 05/13/2022 14:44 EDT Results were obtained with the INOVA NOVA Lite HEp-2 FRANCISCO Kit by indirect immunofluorescence. Provider Outr Resulting Lab IMMUNOLOGY A ND SEROLOGY ORDERABLES [facility] [address] [place] [address] documented in this encounter Visit Diagnoses Not on filedocumented in this encounter Care Teams Social Secretary Relationship Specialty Start Date End Date Ashley Chavez ARNP [address] [place] [address] PCP - General 07/11/10 documented as of this encounter
--- OUTSIDE RECORDS SUMMARY | 2024-02-24 13:57 | XMS_ITS | Referral Summary ---
Author Organization [facility] Address [address] [place] [address] Care Team Providers Care Clerical Administrative Assistant Name Role Phone Ashley Chavez Primary Care Provider [phone] Social History Tobacco Use Types Packs/Day Years Used Date Smoking Tobacco: Never Assessed Interpersonal Safety Answer Date Record ed Physically Hurt Never 03/03/2020 Verbally Threaten Not on file 03/03/2020 Sex and Gender Information Value Date Recorded Sex Assigned at Not on file Gender Identity Not on file Sexual Orientation Not on file Plan of Treatment Not on file Care Teams Clerical Administrative Assistant Relationship Specialty Start Date End Date Ashley Chavez ARNP [address] [place] [address] PCP - General 07/11/10
--- OUTSIDE RECORDS SUMMARY | 2024-02-24 13:57 | XMS_ITS | Clinical Summary ---
Author Organization [facility] Address [address] [place] [address] Care Team Providers Care Director Insurance Name Role Phone Ashley Chavez Primary Care Provider [phone] Social History Tobacco Use Types Packs/Day Years [...] COVID-19 Vaccine (2022-24 season) 2023 Care Teams Director Insurance Relationship Specialty Start Date End Date Ashley Chavez ARNP [address] [place] [address] PCP - General 07/11/10
--- OUTSIDE RECORDS SUMMARY | 2024-02-24 13:57 | XMS_ITS | Clinical Summary ---
Author Organization Formerly [facility] Address [facility] [place] [address] Care Team Providers Care Galvanizer Zinc Name Role Phone Magdalena Acosta MD Primary Care Provider [phone] Allergies No known active allergies Medications Medication [...] 2 times daily as needed. 10/22/2022 Active hydrOXYchloroQUINE (Plaquenil) 200 mg tablet Take 1 tablet by mouth daily. 90 tablet 12 03/18/2023 Active metoproloL tartrate (Lopressor) 25 mg tablet Take 1 tablet by mouth 2 times daily. 60 tablet 3 05/22/2023 Active spironolactone (Aldactone) 25 mg tabletIndications:H FrEF (heart [...] Oral DAILY,(No instructions reported), Reported on 12/02/2023 losartan (Cozaar) 25 mg tablet [...] fraction 05/08/2023 Mild coronary artery disease by [facility] 11/09/2022 Heart failure with reduced e [...] Date Type Department Care Team Description 02/22/2024 4:15 PM EDT Office Visit Dermatology at [address] [address] Marek Bonilla MD Seborrheic keratosis; Rosacea; Nevus 02/22/2024 Travel 12/16/2023 Orders Only Cardiology at [address] [address] Antelmo Sharma MD S/P TAVR (transcatheter aortic valve replacement) 12/02/2023 11:15 AM EDT [place] [address] Magdalena Peralta MD Mixed connective [...] = 0.6 oz pur e alcohol) none [facility] Inpatient Questions Answer Date [...] 11:30 AM [place] [address] Magdalena Peralta MD [facility] [place] [address] 03/01/2025 4:15 PM EDT Office Visit Dermatology at [place] [address] [place] [address] Marek Bonilla MD [address] [place] [address] Health Maintenance Due Date Last Done Comments [...] 06/05/2036 06/05/2021 Medical Devices Implanted Type Area Multiple Coil Winder Device Identifier Shelf Expiration Date Model / Serial / Lot Valve,Aor,Pericar d,Magna,25mm ([id number]) - [id number] Implanted:Qty: 1 on 09/21/2016 by Alirio Esparza MD at [facility] IMPLANTS N/A: Heart DO NOT USE [employer] - [id number] 06/02/2020 [id number] / / [id number] Cable,Blnt,Ss,38i n ([id number]) - [id number] Implanted:Qty: 4 on 09/21/2016 by Alirio Esparza MD at [facility] IMPLANTS N/A: Chest [employer] - [id number] 04/29/2021 [id number] / / [id number] Patch,Cav,Pericar d,2x5cm ([id number]) (Autoreq) - [id number] Implanted:Qty: 1 on 09/21/2016 by Alirio Esparza MD at [facility] IMPLANTS N/A: Heart DO NOT USE [employer] - [id number] 04/21/2018 [id number] / / [id number] Tavr-05/12/2023 Implanted:Qty: 1 on 05/12/2023 by Antelmo Sharma MD Other Heart [employer] - JAIME LI [id number] / [id number] / Description:JAIME LIFESCIE NCES ABBY 3 ULTRA [...] Glucose Lvl 93 65 - 199 mg/dL [facility] Comment:Diabetes: >=200 mg/d L plus symptoms BUN 19(H) 8 - 18 mg/dL [facility] Creatinine 0.81 0.70 - 1.20 mg/dL [facility] Sodium 142 135 - 145 mmol/L [facility] Potassium 3.8 3.5 - 5.0 mmol/L [facility] Comment: Please note: ??Patients with WBC >100,000 may have falsely elevated Potassium levels. ??For accurate Potassium quantification in these patients send serum separator tube (gold top) for subsequent determinations. ??Contact the Clinical Chemistry Laboratory if there are any questions. Chloride 104 98 - 107 mmol/L [facility] CO2 26 22 - 31 mmol/L [facility] Anion Gap 12 5 - 15 mmol/L [facility] Calcium 10.2 8.5 - 10.5 mg/dL [facility] Total Protein 7.4 6.1 - 8.0 g/dL [facility] Albumin 4.1 3.2 - 5.2 g/dL [facility] AST 24 0 - 30 unit/L [facility] ALT 12 0 - 30 unit/L [facility] Alk Phos 93 35 - 105 unit/L [facility] Total Bilirubin 0.3 0.2 - 1.3 mg/dL [facility] Estimated GFR 80 >=60 mL/min/1. 73 m?? [facility] Comment: This patient's estimated GFR [...] CHEMISTRY ORDERABLE S [facility] [place] [address] * DXA Central Spine, Hip, and/or Whole Body (Generic) (06/05/2021 11:58 AM EDT) PT CLASS O RAD ADMITDTTM RAD PT RAD INFO [id number]^E VERETT^DEBORAH ^E RAD EXAM DESC XDXAC^DEXA SCAN [...] have questions please contact the health care specialist that requested your imaging first. ? Electronically signed by: Rocael Villatoro MD, [facility] ([phone]), at 06/05/2021 12:00 PM Narrative 06/05/2021 12:00 [...] who have questions please contactthe health care specialist that requested your imaging first. Electronically signed by: Rocael Villatoro MD, [facility]([phone]), at 06/05/2021 12:00 PM Deborah E Junaid PSYCH SOCIAL WORKER IMG DEXA ORDERABLES * Mammo Screening Cad Bilateral (06/05/2021 11:42 AM EDT) PT CLASS O RAD ADMITDTTM RAD PT RAD MD INFO [id number]^EV ERETT^DEBORAH^E DH RAD EXAM DESC MADDSC^SCREEN MAMMO [...] have questions please contact the health care specialist that requested your imaging first. ? Electronically signed by: Rocael Villatoro MD, [facility] ([phone]), at 06/05/2021 1:27 PM Narrative 06/05/2021 1:27 [...] who have questions please contactthe health care specialist that requested your imaging first. Electronically signed by: Rocael Villatoro MD, [facility]([phone]), at 06/05/2021 1:27 PM Deborah Quiroga APRN [...] capacity to make decision: Yes Care Teams Galvanizer Zinc Relationship Specialty Start Date End Date Magdalena Acosta MD [address] [place] [address] PCP - General Family Medicine 02/05/23
--- OUTSIDE RECORDS SUMMARY | 2024-02-24 13:57 | XMS_ITS | Encounter Summary ---
Author Organization [facility] Address [facility] [place] [address] Care Team Providers Care Nurse Rn Bsn Name Role Phone Magdalena Acosta MD Primary Care Provider [phone] Encounter Details Date Type Department Care Team (Late st Contact Info) Description 07/29/2023 11:00 AM EST Office [place] [address] Magdalena Peralta MD [facility] [place] [address] Mixed connective tissue disease Social History Tobacco [...] 1:5120 speckled; VIC negative; Myositis panel with CONCRETE PANEL INSTALLER ab 149.1 (positive); Anti U1RNP IgG 119; [...] Viramontes. Magdalena Peralta MD Rheumatology Fellow Pager: [phone] * Kia Viramontes DO - 07/29/2023 11:00 AM EST ATTENDING ADDENDUM The patient's history was reviewed, and I interviewed and examined the patient with Dr. Peralta I agree with her summary, findings, and plan. documented in this encounter Plan of Treatment Upcoming Encounters Date Type Department Care Team (Late st Contact Info) Description 06/05/2024 11:30 AM EST Office [place] [address] Magdalena Peralta MD [facility] [place] [address] 03/01/2025 4:15 PM EDT Office Visit Dermatology at [address] [phone] Marek Bonilla MD [address] [place] [address] [place] [address] documented as of this encounter Results * [...] PFT FEV1/FVC Pre-BD Z-Score 0 COMPAS PFT XPY89-54 Actual Pre-BD 2.41 % COMPAS PFT WKI18-39 Predicted 1.8 % COMPAS PFT XUC38-24 Pre-BD % of Predicted 134 % COMPAS PFT LLO05-55 Pre-BD Z-Score 0.81 COMPAS PFT DLCO Hb [...] tissue documented in this encounter Care Teams Nurse Rn Bsn Relationship Specialty Start Date End Date Magdalena Acosta MD [address] [place] [address] PCP - General Family Medicine 02/05/23 documented as of this encounter
--- OUTSIDE RECORDS SUMMARY | 2024-02-24 13:57 | XMS_ITS | Encounter Summary ---
Author Organization [facility] Address [address] [place] [address] Care Team Providers Care Oil Tester Name Role Phone Ashley Chavez Primary Care Provider [phone] Encounter Details Date Type Department Care Team (Late st Contact Info) Description 01/07/2023 Lab Requisition [facility] Pathology & Laboratory Medicine - [address] [phone] Outr Resulting Lab, Provider Social History Tobacco [...] 56.2 55.8 - 66.1 % 01/08/2023 11:28 [facility] Albumin g/dL 3.9 3.6 - 5.2 g/dL 01/08/2023 11:28 [facility] Alpha-1 % 5.1(H) 2.9 - 4.9 % 01/08/2023 11:28 [facility] Alpha-1 g/dL 0.40 0.15 - 0.40 g/dL 01/08/2023 11:28 [facility] Alpha-2 % 7.0(L) 7.1 - 11.8 % 01/08/2023 11:28 [facility] Alpha-2 g/dL 0.50 0.50 - 1.00 g/dL 01/08/2023 11:28 [facility] Beta % 12.7 8.4 - 13.1 % 01/08/2023 11:28 [facility] Beta g/dL 0.90 0.60 - 1.20 g/dL 01/08/2023 11:28 [facility] Gamma % 19.0(H) 11.1 - 18.8 % 01/08/2023 11:28 [facility] Gamma g/dL 1.30 0.60 - 1.60 g/dL 01/08/2023 11:28 [facility] SPEP Comment No apparent monoclonal protein seen on serum electrophoresis 01/08/2023 11:28 [facility] Comment:See scanned/suppleme ntary report. Total Protein 6.9 6.3 - 8.2 g/dL 01/08/2023 11:28 [facility] Blood VENOUS BLOOD / Unknown 01/06/2023 14:40 EDT 01/07/2023 17:37 EDT Provider Outr Resulting Lab CHEMISTRY & BLOOD GAS ORDERABLES Performing Organization Address City/State/[facility] Co de Phone Number [facility] [address] [place] [address] * PROTEIN, TOTAL (01/06/2023 14:40 EDT) Blood VENOUS BLOOD / Unknown 01/06/2023 14:40 EDT 01/07/2023 17:37 EDT Provider Outr Resulting Lab CHEMISTRY & BLOOD GAS ORDERABLES Performing Organization Address [facility] Co de Phone Number [facility] [address] [place] [address] * (ABNORMAL) EXTRACTABLE NUCLEAR ANTIGEN PANEL (01/06/2023 14:40 EDT) SSA Antibody 1.3 <20.0 Units 01/08/2023 15:42 EDT [facility] Comment: ? Negative: <20.0 [...] Antibody 1.5 <20.0 Units 01/08/2023 15:42 EDT [facility] Comment: ? Negative: <20.0 [...] Antibody 15.3 <20.0 Units 01/08/2023 15:42 EDT [facility] Comment: ? Negative: <20.0 Units ? Weak Positive: 20.0 - 39.9 Units ? Moderate Positive: 40.0 - 80.0 Units ? Strong Positive: >80.0 Units Results were obtained with the [place] S&TVA QUANTA Lite Sm DOMO. ??Sm values obtained with different manufacturers' assay methods may not be used interchangeably. ??The magnitude of the reported IgG levels cannot be correlated to an endpoint titer. SUPERVISOR PLASTICS Antibody 149.1(H) <20.0 Units 01/08/2023 15:42 EDT [facility] Comment: ? Negative: <20.0 Units ? Weak Positive: 20.0 - 39.9 Units ? Moderate Positive: 40.0 - 80.0 Units ? Strong Positive: >80.0 Units Results were obtained with the LumeJetva Quanta Lite SUPERVISOR PLASTICS DOMO. SUPERVISOR PLASTICS values obtained with different c++ quant developer's assay methods may not be used interchangeaby. ??The magnitude of the reported IgG levels cannot be be correlated to an endpoint titer. A positive result in the Quanta Lite SUPERVISOR PLASTICS DOMO indicates the presence of antibodies reactive with the SUPERVISOR PLASTICS/Sm complex but cannot distinguish between anti-Sm and anti-SUPERVISOR PLASTICS activity. Blood VENOUS BLOOD / Unknown 01/06/2023 14:40 EDT 01/07/2023 17:37 EDT Provider Outr Resulting Lab IMMUNOLOGY A ND SEROLOGY ORDERABLES [facility] [address] [place] [address] * (ABNORMAL) ANTI NUCLEAR AB (FRANCISCO), IFA (01/06/2023 14:40 EDT) FRANCISCO Interpretation Positive(A) Negative 01/08/2023 15:22 EDT [facility] Comment: Result is equal to or greater than 1:5120. For titers greater than or equal to 1:160 (except the centromere, nucleolar, and dense fine speckled patterns) it is recommended that specific, follow-up autoantibody testing (such as for dsDNA and Extractable Nuclear Antigens) be performed on all diffuse and/or speckled patterns. FRANCISCO Titer and Pattern 1 1:5120 Speckled 01/08/2023 15:22 EDT [facility] Blood VENOUS BLOOD / Unknown 01/06/2023 14:40 EDT 01/07/2023 17:37 EDT Narrative [facility] - 01/08/2023 15:22 EDT Results were obtained with the INOVA NOVA Lite HEp-2 FRANCISCO Kit by indirect immunofluorescence. Provider Outr Resulting Lab IMMUNOLOGY A ND SEROLOGY ORDERABLES Performing Organization Address City/State/[facility] Co de Phone Number [facility] [address] [place] [address] documented in this encounter Visit Diagnoses Not on filedocumented in this encounter Care Teams Oil Tester Relationship Specialty Start Date End Date Ashley Chavez ARNP [address] [place] [address] PCP - General 07/11/10 documented as of this encounter
--- OUTSIDE RECORDS SUMMARY | 2024-02-24 13:57 | XMS_ITS | Encounter Summary ---
Author Organization [facility] Address [address] [place] [address] Care Team Providers Care Brim Welt Sewing Machine Operator Name Role Phone Ashley Chavez Primary Care Provider [phone] Encounter Details Date Type Department Care Team (Latest Contact Info) Description 05/12/2019 13:18 EDT - 05/12/2019 23:59 EDT Hospital Encounter [address] [address] Unknown, Provider, Discharge Disposition: Home or Self Care Social History Tobacco Use Types Packs/Day Years Used Date Smoking Tobacco: Never Assessed Sex and Gender Information Value Date Recorded Sex Assigned at Not on file Gender Identity Not on file Sexual Orientation Not on file documented as of this encounter Discharge Disposition Disposition Code Departure Means Destination Home or Self Intermediate documented in this encounter Plan of Treatment Not on file documented as of this encounter Visit Diagnoses Not on filedocumented in this encounter Care Teams Brim Welt Sewing Machine Operator Relationship Specialty Start Date End Date Ashley Chavez ARNP [address] [place] [address] PCP - General 07/11/10 documented as of this encounter
--- OUTSIDE RECORDS SUMMARY | 2024-02-24 13:57 | XMS_ITS | Encounter Summary ---
Author Organization [facility] Address [facility] [place] [address] Care Team Providers Care Computer Support Specialist Instructor Name Role Phone Magdalena Acosta MD Primary Care Provider [phone] Encounter Details Date Type Department Care Team [...] 11:30 AM EST Office Visit [place] [address] Magdalena Peralta MD [facility] [place] [address] 03/01/2025 4:15 PM EDT Office Visit Dermatology at [address] [phone] Marek Bonilla MD [address] [place] [address] [place] [address] documented as of this encounter Visit Diagnoses Not on filedocumented in this encounter Care Teams Computer Support Specialist Instructor Relationship Specialty Start Date End Date Magdalena Acosta MD [address] [place] [address] PCP - General Family Medicine 02/05/23 documented as of this encounter
--- OUTSIDE RECORDS SUMMARY | 2024-02-24 13:57 | XMS_ITS | Encounter Summary ---
Author Organization [facility] Address [address] [place] [address] Care Team Providers Care Almond Blancher Operator Name Role Phone Scott Ashley WILLIAM Primary Care Provider [phone] Encounter Details Date Type Department Care Team (Late st Contact Info) Description 11/10/2013 Results Only [facility] [phone] Jeni Laird, CAR RIDER [address] [place], [place] [phone] Social History Tobacco Use Types Packs/Day Years [...] ? 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 Accession #: ? [id number] : ? 1955 (Age: 58) ??F ?Collect Date: ? 11/10/2013 Location: ? [facility] ? Receive Date: ? 11/14/2013 Provider: ?JENI LAIRD CAR RIDER Copy to: ? Specimen/Source: ?Pap Test, Endocervix, [...] Report PAUL ARELLANO 11/10/2013 11/14/2013 Jeni Laird CAR RIDER PATHOLOGY ORDERAB LES Performing Organization Address City/State/[facility] Co de Phone Number PAUL ARELLANO [address] [place] [address] documented in this encounter Visit Diagnoses Not on filedocumented in this encounter Care Teams Almond Blancher Operator Relationship Specialty Start Date End Date Ashley Chavez ARNP [address] [place] [address] PCP - General 07/11/10 documented as of this encounter
--- OUTSIDE RECORDS SUMMARY | 2024-02-24 13:57 | XMS_ITS | Encounter Summary ---
Author Organization [facility] Address [address] [place] [address] Care Team Providers Care Informatica Mdm Developer Name Role Phone Ashley Chavez Primary Care Provider [phone] Encounter Details Date Type Department Care Team (Late st Contact Info) Description 06/23/2016 Results Only [facility] [phone] Matthew Acevedo, DO [address] [facility] [place] [address] [place] [address] Social History Tobacco Use Types Packs/Day [...] ? 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 Accession #: ? [id number] : ? 1955 (Age: 60) ??F ?Collect [...] ??400 ?? KARYOTYPE: 46,XX[25] End of Report [facility] 06/23/2016 06/24/2016 Matthew Acevedo DO PATHOLOGY ORDER JODIE [facility] [address] [place] [address] * FLOW CYTOMETRY (06/23/2016 0:00 EST) Pathology Report: FLOW CYTOMETRY REPORT Reports generated via electronic interface contain original data; however they are lacking the format of the original report. Caution should be taken when reading/interpreting unformatted reports. Name: ? 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 Accession #: ? [id number] : ? 1955 (Age: 60) ??F ?Collect Date: ? 06/23/2016 00:00 Location: ? [facility] ? Receive Date: ? 06/24/2016 08:00 Provider: ?MATTHEW ACEVEDO DO Copy to: ?[facility] PUBLIC RECORDS RESEARCHER MARIO ALBERTO RAMOS MD ? FINAL IMMUNOPHENOTYPIC INTERPRETATION: ? Bone marrow, flow cytometric analysis: -No immunophenotypic evidence of a clonal cell population. ??See comment. ? COMMENT: The results of flow cytometry show no immunophenotypic evidence of involvement by a clonal lymphoproliferative or myeloproliferative disorder. ??Correlation of these findings with morphologic and clinical data is essential. ??Please refer to pathology report number [id number] for morphologic details. ? Document reviewed and [...] the Department of Pathology and Laboratory Medicine, [place], [place] ??It has not been cleared or [...] clinical laboratory testing. End of Report ?? [facility] 06/23/2016 06/24/2016 8:0 0 EST Matthew Acevedo DO PATHOLOGY ORDER JODIE [facility] [address] [place] [address] * BONE MARROW/HEMPATH CONSULT (06/23/2016 0:00 EST) Pathology Report: BONE MARROW REPORT Reports generated via electronic interface contain original data; however they are lacking the format of the original report. Caution should be taken when reading/interpreting unformatted reports. Name: ? 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 Accession #: ? [id number] : ? 1955 (Age: 60) ??F ?Collect Date: ? 06/23/2016 Location: ? [facility] ? Receive Date: ? 06/24/2016 Provider: ? MATTHEW ACEVEDO DO Copy to: ?[facility] PUBLIC RECORDS RESEARCHER MARIO ALBERTO RAMOS MD ? DIAGNOSIS: Peripheral [...] #1: Aggregate biopsy length: 8 mm with stained glass glazier trabeculae of lamellar bone, cellular bone marrow, [...] SEE ABOVE DISCUSSION Lambda (polyclonal, Dako) ??(B1): Mckay (polyclonal, Dako) ??(B1): Biopsy (decalcified) #2: Aggregate biopsy length: 8 mm with stained glass glazier trabeculae of lamellar bone, cellular bone marrow, [...] (M115, Leica) ??(B2): Lambda (polyclonal, Dako) ??(B2): Mckay (polyclonal, Dako) ??(B2): NOTE: ??One or more [...] performance characteristics have been determined by [facility]. ??The positive and negative controls worked [...] ? 1% Blasts ?1% Special Studies Cytogenetics ([id number]): Pending. Flow Cytometry ([id number]): No immunophenotypic evidence of a clonal cell population. ? End of Report [facility] 06/23/2016 06/24/2016 Matthew Acevedo DO PATHOLOGY ORDER JODIE [facility] [address] [place] [address] documented in this encounter Visit Diagnoses Not on filedocumented in this encounter Care Teams Informatica Mdm Developer Relationship Specialty Start Date End Date Ashley Chavez ARNP [address] [place] [address] PCP - General 07/11/10 documented as of this encounter
--- OUTSIDE RECORDS SUMMARY | 2024-02-24 13:57 | XMS_ITS | Encounter Summary ---
Author Organization [facility] Address [address] [place] [address] Care Team Providers Care Line Dancer Name Role Phone Unavailable Primary Care Provider Unavailabl e Encounter Details Date Type Department Care Team (Late st Contact Info) Description 04/20/2005 Results Only [facility] - [facility] [address] [place] [address] Ziggy Valiente MD [address] [place] [phone] Social History Tobacco Use Types Packs/Day Years [...] ? 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 Accession #: ? [id number] ? : ? 1955 (Age: 49) ??F [...] correlation with endoscopic appearance is recommended. (Dr. Chino)/[facility] Document reviewed and electronically signed by: TYRON [...] is entirely submitted in one cassette. ??(Arabella Santos[facility] End of Report PAUL ARELLANO 04/20/2005 04/21/2005 15: 04 EDT Ziggy Valiente MD PATHOLOGY ORDERABLES APUL ARELLANO [address] [place] [address] documented in this encounter Visit Diagnoses Not on filedocumented in this encounter
--- OUTSIDE RECORDS SUMMARY | 2024-02-24 13:57 | XMS_ITS | Encounter Summary ---
Author Organization [facility] Address [address] [place] [address] Care Team Providers Care Securities Broker Name Role Phone Unavailable Primary Care Provider Unavailabl e Encounter Details Date Type Department Care Team (Late st Contact Info) Description 07/08/2010 Results Only [facility] Non-Invasive Cardiology - [facility] [address] [place] [address] Ashley Chavez, WILLIAM [address] [place] [address] Social History Tobacco Use Types Packs/Day Years [...] ? 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 Accession #: ? [id number] ? : ? 1955 (Age: 54) ??F [...] Ashley THOMAS PATHOLOGY ORDERABLES PAUL ARELLANO [address] [place] [address] documented in this encounter Visit Diagnoses Not on filedocumented in this encounter
--- OUTSIDE RECORDS SUMMARY | 2024-02-24 13:57 | XMS_ITS | Encounter Summary ---
Author Organization [facility] Address [address] [place] [address] Care Team Providers Care Ui Software Engineer Name Role Phone Scott Ashley WILLIAM Primary Care Provider [phone] Encounter Details Date Type Department Care Team (Late st Contact Info) Description 05/12/[address] [facility] [phone] Nadira Gregorio MD [address] [place] [phone] Social History Tobacco Use Types Packs/Day [...] ? 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 Accession #: ? [id number] ? : ? 1955 (Age: 63) ??F ? Collect Date: ? 05/12/2019 ? Location: ? [facility] ? Receive Date: ? 05/12/2019 ? Provider: NADIRA GREGORIO MD Copy to: WINTER HANKINS SUPERVISOR [employer] ? Final Pathologic Diagnosis: COLON, CECUM, POLYP, [...] (ASCP) 05/12/2019 6:08 PM End of Report [facility] 05/12/2019 16:0 3 EDT 05/12/2019 16:03 EDT Nadira Gregorio MD PATHOLOGY ORDERABLES [facility] [address] [place] [address] documented in this encounter Visit Diagnoses Not on filedocumented in this encounter Care Teams Ui Software Engineer Relationship Specialty Start Date End Date Ashley Chavez ARNP [address] [place] [address] PCP - General 07/11/10 documented as of this encounter
--- OUTSIDE RECORDS SUMMARY | 2024-02-24 13:57 | XMS_ITS | Encounter Summary ---
Author Organization [facility] Address [address] [place] [address] Care Team Providers Care Billing And Insurance Coordinator Name Role Phone Scott, Ashley WILLIAM Primary Care Provider [phone] Encounter Details Date Type Department Care Team (Late st Contact Info) Description 12/23/2016 Results Only [facility] [phone] Deborah Quiroga, SUBSTANCE ABUSE PREVENTION COORDINATOR [address] [place] [phone] Social History Tobacco Use Types Packs/Day Years [...] ? 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 Accession #: ? [id number] ? : ? 1955 (Age: 61) ??F ?Collect Date: ? 12/23/2016 ? Location: ? [facility] ? Receive Date: ? 12/25/2016 ? Provider: DEBORAH QUIROGA ALTERNATIVE DISPUTE RESOLUTION MEDIATOR Copy to: ? Final Report SPECIMEN ADEQUACY ? Satisfactory for Evaluation - transformation zone component present GENERAL CATEGORIZATION ? Negative for Intraepithelial Lesion or Malignancy ?? Last Menstrual Period: years Specimen/Source: ??Pap Test, Cervix, ThinPrep Imaging System with manual evaluation Document reviewed and electronically signed by: ? Monica Cason [facility](ASCP) ? Report ??Date: 01/06/2017 09:11 HPV with Pap Test ? Date Ordered: ? 01/06/2017 ? Status: ?? Signed Out ?Date Complete: ? 01/07/2017 ? By: ??System Interface ? Date Reported: ? 01/07/2017 ? Interpretation RESULT: Negative for HPV. No E6 or E7 mRNA is detected from HPV types 16,18,31,33,35, 39,45,51,52,56,58, 59,66, and 68 by masonry contractor administrator mediated amplification. Comments Document reviewed and electronically signed by: ? System Interface ? Report date: 01/07/2017 By the signature above, the attending physician certifies that he/she has personally conducted a gross and/or microscopic examination of the described specimens and rendered or confirmed the above diagnosis. End of Report [facility] 12/23/2016 12/25/2016 Deborah Quiroga SUBSTANCE ABUSE PREVENTION COORDINATOR PATHOLOGY ORDERABLES [facility] [address] [place] [address] documented in this encounter Visit Diagnoses Not on filedocumented in this encounter Care Teams Billing And Insurance Coordinator Relationship Specialty Start Date End Date Ashley Chavez ARNP [address] [place] [address] PCP - General 07/11/10 documented as of this encounter
--- OUTSIDE RECORDS SUMMARY | 2024-02-24 13:58 | XMS_ITS | Encounter Summary ---
Author Organization [facility] Address [facility] [place] [address] Care Team Providers Care Bulk Folder Name Role Phone Magdalena Acosta MD Primary Care Provider [phone] Encounter Details Date Type Department Care Team [...] 11:30 AM EST Office [place] [address] Magdalena Peralta MD [facility] [address] 03/01/2025 4:15 PM EDT Office Visit Dermatology at [address] [phone] Marek Bonilla MD [address] [place] [address] [place] [address] documented as of this encounter Visit Diagnoses Not on filedocumented in this encounter Care Teams Bulk Folder Relationship Specialty Start Date End Date Magdalena Acosta MD [address] [place] [address] PCP - General Family Medicine 02/05/23 documented as of this encounter
--- OUTSIDE RECORDS SUMMARY | 2024-02-24 13:58 | XMS_ITS | Encounter Summary ---
Author Organization [facility] [place] [address] Care Team Providers Care Compliance Representative Dealer Name Role Phone Magdalena Acosta MD Primary Care Provider [phone] Reason for Referral * Diagnostic Test (Routine) - Closed Specialty Diagnoses / Procedures Referred By Contac t Referred To Contact Cardiology Diagnoses S/P TAVR (transcatheter aortic valve replacement) Procedures Echocardiogram Transthoracic Vinod Juárez PA [facility] [place] [address] [facility] [place] [address] Referral ID Status Reason Start Date Expiration Date V isits Requested Visits Authorized [id number] Closed Specialty Service Requested 05/22/2023 05/21/2024 1 1 Reason for Visit * Diagnostic Test (Routine) - Closed Specialty Diagnoses / Procedures Referred By Contac t Referred To Contact Cardiology Diagnoses S/P TAVR (transcatheter aortic valve replacement) Procedures Echocardiogram Transthoracic Vinod Juárez PA [facility] [place] [address] [facility] [place] [address] Referral ID Status Reason Start Date Expiration Date V isits Requested Visits Authorized [id number] Closed Specialty Service Requested 05/22/2023 05/21/2024 1 1 Encounter Details Date Type Department Care Team (Latest Contact Info) Description 07/08/2023 10:19 AM EST - 07/08/2023 11:59 PM EST Hospital Encounter Non-Invasive Cardiology Lab [facility] [place] [address] Alirio Esparza MD [facility] [place] [address] S/P TAVR (transcatheter aortic valve replacement) Discharge [...] Sig Dispensed Refills Start Date End Date metoproloL tartrate (Lopressor) 25 mg tablet Take [...] after that 75mg once daily. 05/28/2023 07/20/2023 furosemide (Lasix) 20 mg tablet Take 1 tablet by mouth daily. 90 tablet 3 05/23/2023 02/22/2024 cyanocobalamin, Vitamin B-12, (Vitamin B-12) 1,000 mcg tablet Take 500 mcg by mouth daily. 02/22/2024 documented as of this encounter Plan of Treatment Upcoming Encounters Date Type Department Care Team (Late st Contact Info) Description 06/05/2024 11:30 AM EST Office [place] [address] Magdalena Peralta MD [facility] [place] [address] 03/01/2025 4:15 PM EDT Office Visit Dermatology at [address] [place] [phone] Marek Bonilla MD [address] [place] [address] [place] [address] documented as of this encounter Procedures Procedure Name Priority Date/Time Associated Diagnosis Comments ECHO LMTD W/O CONTRAST W LMTD SPEC DOPP COLOR DOPP Routine 07/08/2023 12:15 PM EST S/P TAVR (transcatheter aortic valve replacement) documented in this encounter Results * ECHO LMTD W/O CONTRAST W LMTD SPEC DOPP COLOR DOPP (07/08/2023 12:15 PM EST) EF 20 [employer] Anatomical Region Laterality Modality Cardiac Other 07/08/2023 10:3 1 AM EST Narrative 07/08/2023 12:26 PM EST 1 [place] [address] ? Echocardiogram Report Name: ONESIMO THACKER ?Study Date: 07/08/2023 10:31 AMBP: 118/60 mmHg ? Patient Location: 4A : 1955 ? Height: 155 cm ? Account: [id number] Age: 67 yrs ? Weight: 74 kg Gender: Female ?BSA: 1.7 m2 Ordering Physician: ALIRIO ESPARZA Referring Physician: VINOD JUÁREZ Performed By: Felicia Norris RDCS Reason For Study: S/P TAVR Exam Location: [facility]. Interpretation Summary Left ventricular systolic function [...] no significant change (post-procedure). Procedure Limited - 38006. Doppler - 45024. Color Doppler - 82428. Satisfactory quality. This study is limited because [...] Note Lee Kincaid MD - 07/08/2023 [address] [place] [address] Echocardiogram Report Name: KIRSTIE ONESIMO M Study Date: 310:31 AMBP: 118/60 mmHg Patient Location: : 1955 Height: 155 cm Account: [id number] Age: 67 yrs Weight: 74 kg Gender: Female BSA: 1.7 m2 Ordering Physician: ALIRIO ESPARZA Referring Physician: VINOD JUÁREZ Performed By: Felicia Norris RODOLFO Reason For Study: S/P TAVR Exam Location: [facility]. Interpretation Summary Left ventricular systolic function [...] is nosignificant change (post-procedure). Procedure Limited - 14724. Doppler - 54573. Color Doppler - 32133. Satisfactoryquality. This study is limited because of [...] replacement) documented in this encounter Care Teams Compliance Representative Dealer Relationship Specialty Start Date End Date Magdalena Acosta MD [address] [place] [address] PCP - General Family Medicine 02/05/23 documented as of this encounter
--- OUTSIDE RECORDS SUMMARY | 2024-02-24 13:58 | XMS_ITS | Encounter Summary ---
Author Organization [facility] Address [facility] [place] [address] Care Team Providers Care Discotheque Dancer Name Role Phone Magdalena Acosta MD Primary Care Provider [phone] Encounter Details Date Type Department Care Team (Latest Contact Info) Description 07/08/2023 12:35 PM EST Laboratory Appointment Lab [address] [place] [address] S/P TAVR (transcatheter aortic valve [...] 11:30 AM EST Office [place] [address] Magdalena Peralta MD [facility] [place] [address] 03/01/2025 4:15 PM EDT Office Visit Dermatology at [place] [address] [place] [address] Marek Bonilla MD [address] [place] [address] documented as of this encounter Procedures Procedure [...] 11:56 AM EST) Neutrophils % 73.2 % [facility] Neutr Abs (ANC) 3.40 1.70 - 6.10 x10(3)/mc L [facility] Lymphocytes % 16.1 % [facility] Lymphocytes Abs 0.8(L) 0.9 - 3.2 x10(3)/mc L [facility] Monocytes % 9.7 % [facility] Monocyte Abs 0.4 0.3 - 0.9 x10(3)/mc L [facility] Eosinophils % 0.4 % [facility] Eosinophils Abs 0.0 0.0 - 0.4 x10(3)/mc L [facility] Basophils % 0.4 % [facility] Basophils Abs 0.0 0.0 - [...] x10(3)/mc L [facility] Blood 07/08/2023 11:5 6 AM EST 07/08/2023 12:02 PM EST Narrative Resulting Agency Comment Spec In Lab Minh TOBAR HEMATOLOGY ORDERABLE S [facility] [place] [address] * (ABNORMAL) Hemogram (07/08/2023 11:56 AM EST) WBC 4.6 4.0 - 9.5 x10(3)/[facility] RBC 3.34(L) 4.00 - 5.21 x10(6)/[facility] Hemoglobin 11.0(L) 11.7 - 15.5 g/dL [facility] Hematocrit 33.2(L) 35.7 - 45.8 % [facility] MCV 99.4(H) 82.6 - 94.4 fL [facility] MCH 32.9(H) 27.1 - 32.0 pg [facility] MCHC 33.1 31.7 - 35.0 g/dL [facility] Platelets 166 145 - 357 x10(3)/[facility] RDWSD 47.1(H) 37.0 - 46.0 fL [facility] RDWCV 13.0 11.5 - 14.1 % [facility] MPV 9.0 7.6 - 12.9 [facility] nRBC % Auto 0.0 % [facility] nRBC Abs Auto 0.000 0.000 - 0.000 x10(3)/mcL [facility] Blood 07/08/2023 11:5 6 AM EST 07/08/2023 12:02 PM EST Narrative Resulting Agency Comment Spec In Lab Minh TOBAR HEMATOLOGY ORDERABLE S [facility] [place] [address] * (ABNORMAL) Comprehensive metabolic panel (non-fasting) (07/08/2023 [...] MD CHEMISTRY ORDERABLE S Performing Organization Address City/State/[facility] Co de Phone Number [facility] [place] [address] documented in this encounter Visit Diagnoses Diagnosis S/P TAVR (transcatheter aortic valve replacement) Severe aortic stenosis Aortic valve disorders documented in this encounter Care Teams Discotheque Dancer Relationship Specialty Start Date End Date Magdalena Acosta MD [address] [place] [address] PCP - General Family Medicine 02/05/23 documented as of this encounter
--- OUTSIDE RECORDS SUMMARY | 2024-02-24 13:58 | XMS_ITS | Encounter Summary ---
Author Organization [facility] [place] [address] Care Team Providers Care Press Loader Name Role Phone Magdalena Acosta MD Primary Care Provider [phone] Encounter Details Date Type Department Care Team (Late st Contact Info) Description 07/08/2023 10:15 AM EST Office Visit Cardiology at [address] [phone] Severe aortic stenosis Social History Tobacco Use [...] 11:30 AM EST [place] [address] Magdalena Peralta MD [facility] [place] [address] 03/01/2025 4:15 PM EDT Office Visit Dermatology at [place] [address] [place] [phone] Marek Bonilla MD [address] [place] [address] documented as of this encounter Procedures Procedure [...] (Bezet) 449 ms MUSE SYSTEM Calculated P Center 66 degrees MUSE SYSTEM Calculated R Center 60 degrees MUSE SYSTEM Calculated T Center 53 degrees MUSE SYSTEM INTERPRETATION Normal sinus rhythm Minimal voltage criteria for LVH, may be normal variant ( Sokolow-Orozco ) ST & T wave abnormality, consider lateral ischemia ??vs. repolarization abnormality from LVH Abnormal ECG When compared with ECG of 13-MAY-2023 09:22, Premature ventricular complexes are no longer Present Minimal criteria for Septal infarct are no longer Present Confirmed by Maxx Best ([id number]) on 07/09/2023 10:07:22 AM MUSE SYSTEM 07/08/2023 10:2 7 AM EST 07/09/2023 10:07 AM EST Brody Kaplan APRN ECG ORDERABLES [employer] SYSTEM documented in this encounter Visit Diagnoses Diagnosis Severe aortic stenosis Aortic valve disorders documented in this encounter Care Teams Press Loader Relationship Specialty Start Date End Date Magdalena Acosta MD [address] [place] [address] PCP - General Family Medicine 02/05/23 documented as of this encounter
--- OUTSIDE RECORDS SUMMARY | 2024-02-24 13:58 | XMS_ITS | Encounter Summary ---
Author Organization [facility] Address [facility] [place] [address] Care Team Providers Care Coke Wheeler Name Role Phone Magdalena Acosta MD Primary Care Provider [phone] Encounter Details Date Type Department Care Team [...] 11:30 AM EST Office Visit [place] [address] [facility] [place] [address] 03/01/2025 4:15 PM EDT Office Visit Dermatology at [address] [phone] Marek Bonilla MD [address] [place] [address] [place] [address] documented as of this encounter Visit Diagnoses Not on filedocumented in this encounter Care Teams Coke Wheeler Relationship Specialty Start Date End Date Magdalena Acosta MD [address] [place] [address] PCP - General Family Medicine 02/05/23 documented as of this encounter
--- OUTSIDE RECORDS SUMMARY | 2024-02-24 13:58 | XMS_ITS | Encounter Summary ---
Author Organization [facility] [place] [address] Care Team Providers Care Plant Machinist Name Role Phone Magdalena Acosta MD Primary Care Provider [phone] Encounter Details Date Type Department Care Team (Late st Contact Info) Description 05/27/2023 Refill Cardiology at [address] [phone] Vero Marrero, RN Social History Tobacco Use Types Packs/Day Years Used Date Smoking Tobacco: Never Smokeless Tobacco: Never Alcohol Use Standard Drinks/Week Comments No 0 (1 standard drink = 0.6 oz pur e alcohol) none [facility] Inpatient Questions Answer Date Recorded [...] PM EDT TC to Nurse Sosa at [facility] to relay response from Jay Maza copied below. Nurse Sosa states they will send a new prescription to patient's preferred pharmacy and call the patient with the medication information. No print prescription sent to update med list. May 27, 20[address] Jay M[address] PA [address] Ct 05/27/23 2:44 PM OK to change ticagrelor to Clopidogrel. Now, she should be taking ticagrelor 90mg BID. When she switches, she can take ticagrelor, then the next morning, stop ticagrelor, instead take clopidogrel 300mg once, then after that 75mg once daily. Jay Marrero hooker inspector [facility] at [facility] [phone] * Telephone Encounter - Vero Marrero RN - 05/27/2023 1:46 PM EDT VM received from triage nurse Sosa at [facility] stating patient was seen today [...] more affordable option, if possible. Vero Marrero hooker inspector [facility] at [facility] [phone] documented in this encounter Plan of Treatment Upcoming Encounters Date Type Department Care Team (Late st Contact Info) Description 06/05/2024 11:30 AM EST Office [place] [address] Magdalena Peralta MD [facility] [place] [address] 03/01/2025 4:15 PM EDT Office Visit Dermatology at [address] [facility] [place] [phone] Marek Bonilla MD [address] [facility] [place] [address] documented as of this encounter Visit Diagnoses Diagnosis Aortic valve stenosis, etiology of cardiac valve disease unspecified documented in this encounter Care Teams Plant Machinist Relationship Specialty Start Date End Date Magdalena Acosta MD [address] [place] [address] PCP - General Family Medicine 02/05/23 documented as of this encounter
--- OUTSIDE RECORDS SUMMARY | 2024-02-24 13:59 | XMS_ITS | Encounter Summary ---
Author Organization [facility] Address [facility] [place] [address] Care Team Providers Care Maintenance Services Dispatcher Name Role Phone Magdalena Acosta MD Primary Care Provider [phone] Reason for Referral * Diagnostic Test (Routine) - Closed Specialty Diagnoses / Procedures Referred By Contac t Referred To Contact Cardiology Diagnoses S/P TAVR (transcatheter aortic valve replacement) Procedures Echocardiogram Transthoracic Vinod Juárez PA [facility] [place] [address] [facility] [place] [address] Referral ID Status Reason Start Date Expiration Date V isits Requested Visits Authorized [id number] Closed Specialty Service Requested 05/22/2023 05/21/2024 1 1 * Home Health Care (Routine) - Closed Specialty Diagnoses / Procedures Referred By Contac t Referred To Contact Diagnoses S/P TAVR (transcatheter aortic valve replacement) Alirio Hudson MD [facility] [place] [address] [facility] [address] [place] [address] Referral ID Status Reason Start Date Expiration Date V isits Requested Visits Authorized [id number] Closed Consult, Test & Treat 05/22/2023 11/18/2023 999 999 * Consultation (Routine) - Closed Specialty Diagnoses / Procedures Referred By Crispin maxwell Referred To Contact Cardiology Diagnoses S/P TAVR (transcatheter aortic valve replacement) Alirio Hudson MD [facility] CARDIOTH[place] [address] Cardiac Rehab, [facility] [address] [place] [address] [place] [address] Referral ID Status Reason Start Date Expiration Date V isits Requested Visits Authorized [id number] Closed Consult, Test & Treat 05/22/2023 11/18/2023 36 36 * Diagnostic Test (Routine) - Closed Specialty Diagnoses / Procedures Referred By Cirspin maxwell Referred To Contact Cardiology Diagnoses Aortic valve stenosis, etiology of cardiac valve disease unspecified Procedures Echocardiogram Transthoracic Transesophageal Echocardiogram (YUSRA) Radha Hollins MD [facility] [place] [address] [facility] [place] [address] Referral ID Status Reason Start Date Expiration Date V isits Requested Visits Authorized [id number] Closed Specialty Service Requested 05/11/2023 05/10/2024 1 1 Reason for Visit * Auth/Cert (Routine) Specialty Diagnoses / Procedures Referred By Crispin maxwell Referred To Contact Diagnoses Symptomatic severe aortic stenosis with low ejection fraction NSTEMI, CHF Enrique Chua MD [facility] [place] [address] [facility] Referral ID Status Reason Start Date Expiration Date Visits Re quested Visits Authorized [id number] 1 1 Encounter Details Date Type Department Care Team (Latest Contact Info) Description 05/08/2023 9:14 AM EDT - 05/22/2023 10:46 AM EDT Hospital Encounter Heart and Vascular Unit Level 4 [place] [address] [facility] [place] [address] Juan Luis Gonzalez MD [facility] [place] [address]ins [address] [facility] [place] [address] Alirio Hudson MD [facility] DR [place] [address] S/P TAVR (transcatheter aortic valve replacement) (Primary Dx); Aortic valve stenosis, etiology of cardiac valve disease unspecified; Symptomatic severe aortic stenosis with low ejection fraction; Heart failure with reduced ejection fraction due to heart valve disease; Mild coronary artery disease by [facility] 11/09/2022; Mixed connective tissue disease; Neck pain; Rosacea; NICOALS (obstructive sleep apnea); Essential tremor; Essential hypertension; [...] Patient Age: 67 y.o. Birthdate: 1955 Language: Cuban Race: White Ethnicity: Not nor Admit Date: 05/08/2023 Discharge Date: 05/22/2023 Attending Physician: Alirio Hudson MD Follow-up Recommendations for Providers: Please continue routine management of cardiovascular risk factors including blood pressure, lipids,glucose, etc. Please note any medication changes. Patient to follow up with PCP, Magdalena Acosta MD, or Primary Customer Solutions Coordinator, Maria Luz Mejia MD, in ~ 7-10 days. Patient to follow up with Large Engine Assembler, Dr. Antelmo Sharma, in 2 weeks with an EKG, Echo, CBC, and CMP. Patient to follow up with Nephrology, their office to arrange. Iytl-Pqindf-vp interval: After initial 30 day follow-up appointment , all TAVR patients will follow-up again in one year with an echo. 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 Secondary Diagnoses: Active Hospital Problems Diagnosis S/P TAVR (transcatheter aortic valve replacement) Cardiogenic shock Symptomatic severe aortic stenosis with low ejection fraction Mild coronary artery disease by [facility] 11/09/2022 Heart failure with reduced ejection [...] Tube Placement Right 05/18/2023 Laure Ricks PA [facility] INTERVENTIONL RAD PRG CATH PLMT LEFT HEART CATH & ARTS W/INJ & ANGIO IMG S&I N/A 11/09/2022 CORONARY ANGIOGRAPHY; W [facility],POSSIBLE PCI (WRVU 5.6) performed by Mario Alberto Escobedo MD at [facility] CATH LABS PRG COMBINED RIGHT & LEFT HEART CATH W/INJ L VENTRICULOGRAPHY, IMG S&I N/A 05/12/2023 COMBINED RIGHT & LEFT HEART CATH,INC INJ FOR L VENTRICULOGRAPHY (WRVU 5.99) performed by Antelmo Sharma MD at [facility] CATH LABS PRO AORTOPLAS FOR SUPRAVALV STEN N/A 09/21/2016 @AORTOPLASTY FOR SUPRAVALVULAR STENOSIS (WRVU 29.33) performed by Alirio Hudson MD at [facility] MAIN OR PRO REPLACE AORTIC VALVE (TAVR/FEDERICO)PERC FEMORAL ARTERY APPROACH 05/12/2023 @TRANSCATHETER AORTIC VALVE REPLACEMENT (TAVR), PERCUTANEOUS FEMORAL (WRVU 22.47) performed by Alirio Hudson MD at [facility] CATH LABS PRO REPLACEMENT PROSTHETIC AORTIC VALVE OPEN W CARDIOPULMONARY BYPASS HOMOGRF/STENT N/A 09/21/2016 @REPLACE AORTIC VALVE, OPEN, W\CPB, W\PROSTHETIC VALVE (WRVU 41.32) performed by Alirio Hudson MD at [facility] MAIN OR Prior To Admission [...] Major Procedures/Operations: 05/12/23: Successful right transfemoral TAVR Pqvjd-gq-Hgswe with a 23 mm Lai 3 THV. Left coronary protection with left main MINNA. Hospital Course: #Severe prosthetic s/p valve in valve TF TAVR #Low coronary heights s/p left main stent for coronary protection #Type 2 NSTEMI, present on arrival, resolved #Acute decompensated HFrEF #Cardiogenic shock #EVANS / Cardiorenal syndrome Purnima Thacker was admitted to [facility] on 05/08/2023 via the Cardiology [...] TAVR and she was brought to the propagator laborer the following morning where Drs. Alirio Hudson [...] if you have questions. Please call your Large Engine Assembler's office if you have any discharge or drainage from your procedural sites. Your Large Engine Assembler, Dr. Antelmo Sharma and/or the Disintegrator may be reached at . Antibiotic prophylaxis: You will need to take antibiotics prior to many invasive tests and treatments, such as dental cleaning, which should be done every 6 months. Your primary care physician or your dentist can prescribe this medication. Please refer to the card with the [place] [employer] Guidelines for more information. You have been provided with a copy of this card. Please refer to the [place] [employer] Guidelines for more information. Good [...] should resume a low fat, low cholesterol, [place] [employer] Diet Driving: No restrictions. Shower/Bath: You may shower daily. No baths, soaking, or swimming for the first week. Wound care: Wash the sites daily with soap and rinse well, pat dry. Assess for any signs of infection such as increased redness, pain, warmth or drainage. Please call your machine assistant's office if you have any discharge or drainage from your procedural sites. If there is a lot of swelling, apply mamta wraps during the day and remove at bedtime. Elevate your legs when you are sitting. Home oxygen therapy: N/A Follow up appointments: Please schedule a follow-up appointment with your PCP, Magdalena Acosta MD, or Primary Customer Solutions Coordinator in ~ 7-10 days. You have a follow-up appointment with your Large Engine Assembler, Dr. Antelmo Sharma, in 2 weeks with an EKG, Echo, and labs prior to your appointment. You will need follow-up with Nephrology, their office will arrange. Tzhy-Pwchbs-ux interval: After initial 30 day follow-up appointment , all TAVR patients will follow-up again in one year with an echo. Cardiac Rehabilitation: Purnima Thacker was seen today regarding participation in the outpatient Phase 2 Cardiac Rehabilitation at [facility]. The patient agrees to a referral to this program. The referral will be sent at discharge and the patient should be contacted by the Program within 1- 2 weeks from discharge. Future Appointments and Orders Future Appointments and Orders Future Appointments Provider Department Dept Phone 07/29/2023 11:00 AM Magdalena Peralta MD Rheumatology at [facility] Arrive at: Technology Resource Teacher Area [phone] 02/11/2024 2:00 PM Marek Bonilla MD Dermatology at [place] Arrive at: [facility] [address] [phone] Future Orders Complete By Expires Type and Screen Future Surgery, [facility] SAME DAY PROGRAM ONLY) [[id number] Custom] 05/11/2023 Process Instructions: This test is intended ONLY for patients with upcoming surgery for testing prior to the day of surgery obtained through the same day program (4V or SDP). For ALL OTHER PATIENTS, order a Type and Screen (SZG698) This order includes the physician order for an ABO Recheck if requested by the Blood Bank. Scheduling Instructions: Comments: Questions: Date of surgery: CBC (with Diff) [GIG622 Custom] 06/05/2023 12/05/2023 Process Instructions: INCLUDES: WBC, RBC, Hgb, Hct, Platelets, RBC Indices and Differential Scheduling Instructions: Comments: Questions: Comprehensive metabolic panel (non-fasting) [LAB17 Custom] 06/05/2023 08/20/2023 Process Instructions: INCLUDES: Calcium, T Protein, Albumin, AST, ALT, Alk Phos, T Bili, BUN, Creat, GFR, Glucose, Lytes. Scheduling Instructions: Comments: Questions: Echocardiogram Transthoracic [82694 CPT(R)] 06/05/2023 12/05/2023 Process Instructions: Scheduling Instructions: Questions: Where will study be performed?: [facility] Clinics Does the patient have Congenital Heart Disease?: Does patient require sedation?: GA rationale: EKG 12 Lead [61828 CPT(R)] 06/05/2023 12/05/2023 Process Instructions: Scheduling Instructions: Questions: Which location will this be performed?: [place] Is a rhythm strip needed?: No [facility] Devices [EQ161 Custom] As directed Process Instructions: Scheduling Instructions: Questions: Device Needed: WALKER (E0143) Patient Height (cm): 154.9 cm (5' 0.98) Patient Weight: 75.4 kg (166 lb 3.2 oz) Diagnosis: Unsteady gait when walking Referral to Cardiac Rehab [IXS432 Custom] As directed Process Instructions: If no progress note charted, please enter Clinical details in comments. Scheduling Instructions: Questions: My question or request is: s/p TAVR. Cardiac rehab at [facility]. Referral to Home Health [REF34 Custom] As directed Process Instructions: If no progress note charted, please enter Clinical details in comments. Scheduling Instructions: Comments: DOCUMENTATION FOR VNA SERVICES PATIENT'S LOCATION: Purnima Thacker [address] [place] [phone] (home) Air Purifier Servicer's Name: Irineo and brother Raymond In discussion with the attending physician, it is certified that this patient is under his/her careand that MD, or an STEREO EQUIPMENT INSTALLER, HEALTHCARE ACCOUNT MANAGER, or PA who is working directly with him/her, had a yzqb-hn-svwp encounter that meets the physician mizz-wu-uqya encounter requirements with this patient on 05/22/2023. [...] for managing ADLs. HOME HEALTH CARE AGENCY: [facility] [address] [facility] [address] PHONE: [phone] FAX: [phone] Start of care: Ideally 24-48 hours after [...] Magdalena Acosta MD [address] / [facility] [address] All VNA agencies which cover the area of patient's residence have been reviewed, either verbally joao writing, and patient has chosen the home health care agency noted. Questions: Disciplines Requested: Physical Therapy Occupational Therapy Discharge References/Attachments None Arrangements for VNA/home care: As above. (delete if no VNA) Signed: EKATERINA NAVARRETE [facility] Section of Cardiac Surgery Date: 05/22/2023 CC: Magdalena Acosta MD NakaibitoMario Alberto MD [address] [place] [address] documented in this encounter Discharge Instructions * Patient Instructions* Vinod Juárez PA - 05/22/2023 9:32 AM EDT TAVR Discharge Instructions: Call your doctor if: You have a fever of greater than 101 degrees, shaking chills, if you develop redness or drainage from your procedure sites, or if you have questions. Please call your Large Engine Assembler's office if you have any discharge or drainage from your procedural sites. Your Large Engine Assembler, Dr. Antelmo Sharma and/or the Disintegrator may be reached at . Antibiotic prophylaxis: You will need to take antibiotics prior to many invasive tests and treatments, such as dental cleaning, which should be done every 6 months. Your primary care physician or your dentist can prescribe this medication. Please refer to the card with the [place] [employer] Guidelines for more information. You have been provided with a copy of this card. Please refer to the [place] [employer] Guidelines for more information. Good [...] should resume a low fat, low cholesterol, [place] [employer] Diet Driving: No restrictions. Shower/Bath: You may shower daily. No baths, soaking, or swimming for the first week. Wound care: Wash the sites daily with soap and rinse well, pat dry. Assess for any signs of infection such as increased redness, pain, warmth or drainage. Please call your machine assistant's office if you have any discharge or drainage from your procedural sites. If there is a lot of swelling, apply mamta wraps during the day and remove at bedtime. Elevate your legs when you are sitting. Home oxygen therapy: N/A Follow up appointments: Please schedule a follow-up appointment with your PCP, Magdalena Acosta MD, or Primary Customer Solutions Coordinator in ~ 7-10 days. You have a follow-up appointment with your Large Engine Assembler, Dr. Antelmo Sharma, in 2 weeks with an EKG, Echo, and labs prior to your appointment. You will need follow-up with Nephrology, their office will arrange. Fumu-Blmaeb-dz interval: After initial 30 day follow-up appointment , all TAVR patients will follow-up again in one year with an echo. Cardiac Rehabilitation: Purnimakary Thacker was seen today regarding participation in the outpatient Phase 2 Cardiac Rehabilitation at [facility]. The patient agrees to a referral to [...] Take 81 mg by mouth daily. furosemide (Lasix) 20 mg tablet Take 1 tablet by mouth daily. 90 tablet 3 05/23/2023 02/22/2024 ticagrelor (Brilinta) 90 mg tablet Take 1 tablet by mouth 2 times daily for 360 days. 180 tablet 3 05/22/2023 05/27/2023 cyanocobalamin, Vitamin B-12, (Vitamin B-12) 1,000 mcg tablet Take 500 mcg by mouth daily. 02/22/2024 documented as of this encounter Progress Notes [...] ins ( tef) Haven Ba, PT Pager: [phone] Physical Therapy Inpatient Rehabilitation Department * Nico [...] 0600 and on the weekends please page [phone]. * Jory Paniagua Magalie - 05/20/2023 3:52 [...] vomiting Last Bowel Movement: 05/20/23 Jory Paniagua Lumber Cutter * Tong Mike, OT - 05/20/2023 3:16 [...] Tube Placement Right 05/18/2023 Laure Ricks PA [facility] INTERVENTIONL RAD PRG CATH PLMT LEFT HEART CATH & ARTS W/INJ & ANGIO IMG S&I N/A 11/09/2022 CORONARY ANGIOGRAPHY; W [facility],POSSIBLE PCI (WRVU 5.6) performed by Mario Alberto Escobedo MD at [facility] CATH LABS PRG COMBINED RIGHT & LEFT HEART CATH W/INJ L VENTRICULOGRAPHY, IMG S&I N/A 05/12/2023 COMBINED RIGHT & LEFT HEART CATH,INC INJ FOR L VENTRICULOGRAPHY (WRVU 5.99) performed by Antelmo Sharma MD at [facility] CATH LABS PRO AORTOPLAS FOR SUPRAVALV STEN N/A 09/21/2016 @AORTOPLASTY FOR SUPRAVALVULAR STENOSIS (WRVU 29.33) performed by Alirio Hudson MD at [facility] MAIN OR PRO REPLACE AORTIC VALVE (TAVR/FEDERICO)PERC FEMORAL ARTERY APPROACH 05/12/2023 @TRANSCATHETER AORTIC VALVE REPLACEMENT (TAVR), PERCUTANEOUS FEMORAL (WRVU 22.47) performed by Alirio Hudson MD at [facility] CATH LABS PRO REPLACEMENT PROSTHETIC AORTIC VALVE OPEN W CARDIOPULMONARY BYPASS HOMOGRF/STENT N/A 09/21/2016 @REPLACE AORTIC VALVE, OPEN, W\CPB, W\PROSTHETIC VALVE (WRVU 41.32) performed by Alirio Hudson MD at [facility] MAIN OR Social History: Patient lives alone. Home Setup: Pt lives on one level with tub shower and three steps to enter. DME: none used BILINGUAL SALES REPRESENTATIVE Baseline ADL/Mobility: Independent with ADLs and IADLs. [...] awareness: WFL Vision & Perception: corrective lenses director multimedia Communication: WFL Range of motion, strength, coordination: [...] Discharge Disposition (OT): swing bed rehabilitation facility, assisted facility(vs home with support for IADLs) Other [...] Discharge planning. Total Minutes, Occupational Therapy: 28 (3780-3064) OT Evaluation Code Rationale: Diagnosis & Pertinent Co-Morbidities affecting Plan of Care: see PMHx Occupational Profile & Client History: Brief Expanded Extensive x Assessment of Occupational Performance: 1-3 performance deficits 3-5 performance deficits x 5 + performance deficits Clinical Decision Making: Low Moderate High x Clinical decision making of moderate complexity using standardized patient assessment instrument and measurable assessment of functional outcome. Pager: [phone] TONG MIKE OT 05/20/2023 Occupational Therapy Rehabilitation [...] 0600 and on the weekends please page [phone]. * Rylie Rodriguez MD - 05/19/2023 3:59 [...] and plan. Cynthia Blackburn MD Nephrology Pager: [phone] * Diana Espino - 05/19/2023 1:49 PM EDT Machine Pack Assembler Encounter Note Patient Name: Purnima Thacker : [id number] MR#: [id number] Admit Date: 05/08/2023 9:14 AM Hospital Day [...] returning home alone. Anticipated Discharge Disposition (PT): assisted facility, swing bed rehabilitation facility Consult Recommendations: [...] as stated. Total Minutes, Physical Therapy: 38 (1292-1451) Henrik Navarrete, BILINGUAL SALES REPRESENTATIVE Pager: [phone] Physical Therapy Inpatient Rehabilitation Department * Nico [...] 0600 and on the weekends please page [phone]. * Laure Ricks PA - 05/19/2023 7:56 [...] Ricks PA-C Interventional Radiology IR Team Pager [phone] * Consuelo Espinoza RN - 05/18/2023 4:13 PM EDT ANGIO NURSING DATABASE Name: Purnima Thacker Date of : 1955 AGE: 67 y.o. [address]: [address] [place] [phone] (home) Mobile: No relevant phone numbers on [...] fraction I35.0 Mild coronary artery disease by [facility] 11/09/2022 I25.10 Heart failure with reduced [...] and plan. Cynthia Blackburn MD Nephrology Pager: [phone] * Magdalena Puri, FORGE OPERATOR - 05/18/2023 10:51 AM EDT Images from the original note were not included. [facility] [place] [address] [address] STRUCTURAL HEART DISEASE CONSULTATION NOTE PRIMARY CARE [...] stenosis. She is now status post TAVR Rxpsg-fc-Bjjth with a 23 mm Lai 3 THV 05/12/[address] Sharma. Preliminary findings: Successful right transfemoral TAVR Ojzgv-qk-Gmdrj with a 23 mm Lai 3 THV. [...] perforation. Interval Events: - 05/12 Transferred to [facility] post- TAVR for pressor/inotropic support (Levo, [...] ejection fraction Mild coronary artery disease by [facility] 11/09/2022 Heart failure with reduced ejection [...] flush 5 mL 5 mL Intravenous BID Maggie ANURAG Terry 5 mL at 05/18/23 0831 sodium chloride 0.9 % (flush) (BD PosiFlush Normal Saline 0.9) flush 5-20 mL 5- 20 mL Intravenous Q1Min PRN Mara Serrano APRN aspirin chewable tablet 81 mg 81 mg Oral Daily PatokaMara ernandez APRN 81 mg at 05/18/23 0826 ondansetron (pf) (Zofran) (2 mg/mL) injection 4 mg 4 mg Intravenous Q8H PRN PatokaMara ernandez APRN4 mg at 05/12/23 0736 pantoprazole EC (Protonix) tablet 40 mg 40 mg Oral Daily PatokaMara ernandez APRN 40 mg at 05/18/23 0826 Or pantoprazole (Protonix) injection 40 mg 40 mg Intravenous Daily MaggieMara ernandez APRN 40 mg at 05/12/23 1004 [...] NICOLAS Right pleural effusion Cardiogenic shock, recovered Purnimakary Thacker is a 67 y.o. female with [...] stenosis. She is now status post TAVR Vgdwy-jq-Qdkmv with a 23 mm Lai 3 THV 05/12/[address] Sharma. Janet TAVR case notable for coronary LAD protective MINNA. Status post TAVR, the patient was transferred to [facility] for pressor and inotropic support. Pressors weaned [...] Magdalena Puri APRN Structural Heart Team Pager [phone] Team Office Please see addendum by Dr. Sharma for final plan and recommendations Associated attestation - Antelmo Sharma MD - 05/19/2023 10:52 PM EDT I have reviewed Magdalena Puri APRN's above history and I agree with the details as written. The assessment and plan were formulated in discussion with me and I agree with them as documented. Antelmo Sharma MD Pager [phone] * Nico Palacios PA - 05/18/2023 8:13 [...] 0600 and on the weekends please page [phone]. * Loli Hernandez, PT - 05/17/2023 5:27 PM EDT Physical [...] returning home alone. Anticipated Discharge Disposition (PT): assisted facility, swing bed rehabilitation facility Consult Recommendations: [...] plan as stated. Time IN / OUT: 5108-3773 Total Minutes, Physical Therapy: 54 Billing Code: te-sx2, te-f, gait LOLI HERNANDEZ PT Pager: [phone] Physical Therapy Inpatient Rehabilitation Department * Cynthia [...] Well controlled. Cynthia Blackburn MD Nephrology Pager: [phone] * Mara Serrano, FORGE OPERATOR - 05/17/2023 8:26 AM EDT Cardiac Surgery [...] %] Heart Rate from SpO2: -- 05/16 701 - 05/17 07 In: 1440 [P.O.:1440] Out: 4675 [Urine:4675] Admit [...] 0600 and on the weekends please page [phone]. * Guerda Del Valle - 05/16/2023 10:44 AM EDT Nutrition Services Note - Low Nutrition Acuity Purnima Thacker is a 67 y.o. female Reason for intervention: hospital day 9 Nutrition Plan: Continue diet order Encourage good PO Josephine noted Added special serve: open containers Monitor weight Patient scheduled for a hospital day 9 nutrition evaluation. Insurance Plan Specialist met with pt at bedside. Pt reports that her appetite and PO has much improved since admission. Denies nausea/vomiting or trouble chewing/swallowing. Insurance Plan Specialist provided snack list but pt not interested in adding snacks at this time. Her only concern was that she is worried that she will eat too much which will cause too much pressure in her stomach. Insurance Plan Specialist assured pt and suggested eating smaller but [...] Last Bowel Movement: 05/10/23 Guerda Del Valle Lumber Cutter * Vinod Juárez PA - 05/16/2023 10:19 [...] 0600 and on the weekends please page [phone]. * Michael Jeffers MD - 05/16/2023 8:11 AM EDT Images from the original note were not included. Hypertension-Nephrology Inpatient Follow-up Purnmia Thacker [id number] 1955 ID: 67 y.o. old female seen [...] IRONSAT 12 (L) 05/16/2023 SFOLATE >20.0 07/03/2022 [id number] 07/03/2022 Lab Results Component Value Date [...] Dr. Ayoub. Please contact me at phone: [phone] or pager: [phone] with any questions. Michael Jeffers MD Nephrology [...] -Nephrology consulted, labs and renal US ordered -Schneider removed, ambulated around the unit -bilateral pleural [...] soft b/l, no evidence of hematoma. Tubes/Lines/Drains: LUKAS, ROSAURA Art Assessment/Plan: 67 y.o. female 3 Days Post-Op [...] 0600 and on the weekends please page [phone]. * Hortencia Cody MD - 05/15/2023 2:07 [...] Recent Labs 05/15/23 0050 05/14/23 0110 05/13/23 011 NA 131* 132* 132* K 3.7 4.1 3.8 CL 92* 94* 95* CO2 18* 18* 20* BUN 109* 98* 82* CREATININE 5.62* 4.80* 3.15* Last 3 LFTs Recent Labs 05/14/23 0110 05/13/23 01105/12/23 0600 AST 319* 792* 1,435* ALT 437* [...] not included. Hypertension-Nephrology Inpatient Follow-up Purnima Thacker [id number] 1955 ID: 67 y.o. old female seen [...] HGB 7.8 (L) 05/13/2023 SFOLATE >20.0 07/03/2022 [id number] 07/03/2022 Lab Results Component Value Date [...] Dr. Ayoub. Please contact me at phone: [phone] or pager: [phone] with any questions. Michael Jeffers MD Nephrology [...] last 720 hours. T/L/D Art ETT CVL [place] ASSESSMENT, MANAGEMENT, and DECISION MAKIN y.o. female [...] outlined inthis evaluation. HAVEN BA, PT Pager: [phone] Physical Therapy Inpatient Rehabilitation Department Time IN / OUT: [id number] Total time: Total Minutes, Physical Therapy: 30 [...] RIJ, Art, PIV Assessment/Plan: 67 y.o. female 2 Days Post-Op [...] 0600 and on the weekends please page [phone]. * Antelmo Sharma MD - 05/14/2023 7:56 AM EDT Images from the original note were not included. [facility] [address] [place], [place] [id number] STRUCTURAL HEART DISEASE CONSULTATION NOTE PRIMARY CARE [...] stenosis. She is now status post TAVR Amndo-ku-Aovmp with a 23 mm Lai 3 THV 05/12/[address] Sharma. Preliminary findings: Successful right transfemoral TAVR Cnkar-lm-Dbpcu with a 23 mm Lai 3 THV. [...] perforation. Interval Events: - 05/12 Transferred to [facility] post- TAVR for pressor/inotropic support (Levo, [...] ejection fraction Mild coronary artery disease by [facility] 11/09/2022 Heart failure with reduced ejection [...] Daily Lorri Chinchilla PA 2tablet at 05/13/23 210 [START ON 05/15/2023] bisacodyL (Dulcolax) suppository 10 [...] stenosis. She is now status post TAVR Vexwp-od-Stvbw with a 23 mm Lai 3 THV 05/12/[address] Sharma. Janet TAVR case notable for coronary LAD protective MINNA. Status post TAVR, the patient was transferred to [facility] for pressor and inotropic support. Pressors weaned overnight 05/12. Cardiac indices by thermodilution remained >3 with continued Milrinone 0.125 mcg/kg/min prior to PAC removal. EKG todayNSR with stable ME/QRS intervals. Hemoglobin slowly down-trending (8.2-> 7.8-> 7.2). [...] Brody Kaplan APRN Structural Heart Team Pager [phone] Team Office Please see addendum by Dr. [...] exposure. Nephrology consultationtoday. Antelmo Sharma MD Pager [phone] * Antelmo Cardenas RN - 05/14/2023 5:18 AM EDT Pt AOx4, complaining of mild/moderate generalized pain (states her Meloxicam is effective at home) currently refusing prn oxycodone. NAEON, hemodynamically stable on Milrinone, Maps >65, ST in wmi844's down to NSR with frequent multifocal PVC's. [...] original note were not included. [facility] [place] [id number] STRUCTURAL HEART DISEASE PROGRESS NOTE PRIMARY CARE [...] stenosis. She is now status post TAVR Ikcri-zg-Gmjaf with a 23 mm Lai 3 THV 05/12/[address] Sahrma. Preliminary findings: Successful right transfemoral TAVR Szcor-my-Nkthe with a 23 mm Lai 3 THV. [...] ejection fraction Mild coronary artery disease by [facility] 11/09/2022 Heart failure with reduced ejection [...] stenosis. She is now status post TAVR Hmrfx-el-Rfzni with a 23 mm Lai 3 THV 05/12/[address] Sharma. Janet TAVR case notable for coronary LAD protective MINNA. Status post TAVR, the patient was transferred to CV for pressor and inotropic support. Pressors weaned overnight. Cardiac indices by thermodilution remain greater than 3 with continued Milrinone 0.125 mcg/kg/min. EKG today NSR with stable ME/QRS intervals. Hemoglobin 7.8 today from 8.5, likely [...] Brody Kaplan APRN Structural Heart Team Pager [phone] Team Office Please see addendum by Dr. [...] DAPT moving forward. Antelmo Sharma MD Pager [phone] * Bonita Miguel PA - 05/13/2023 8:30 AM EDT Cardiac Surgery Progress Note Purnima Thacker is a 67 y.o. 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 PMH of s/p tissue AVR (2017), mixed connective tissue disease HTN, HLD, NICOLAS, diverticulosis, rosacea, essential tremor, and depression. 24h Events: From propagator laborer for above procedure Extubated at ~1600 to [...] soft b/l, no evidence of hematoma. Tubes/Lines/Drains: Schneider, RIJ, A-line, Art, ROSAURA Assessment/Plan: 67 y.o. female 1 Day Post-Op [...] 0600 and on the weekends please page [phone]. * nOelia Schwartz MD - 05/12/2023 1:44 PM EDT [...] ejection fraction Mild coronary artery disease by [facility] 11/09/2022 Heart failure with reduced ejection [...] FiO2 weaned to 40%. 1105: ABG 7.34/42/73/22 7242-1469: SBT performed and passed on these settings [...] PCP: Magdalena Acosta MD PCP phone number: [phone] Date of Admission: 05/08/2023 ( Hospital Day [...] oliguric, lactate uptrending from 3.1 to 4.8. Khuhsi placed, initial cardiac index of 1.1. Started [...] 144 PHART -- 7.34* 7.34* -- -- LKK2EPZ -- 30* 30* -- -- PO2ART -- 72* 81* -- -- ZLX0EKK -- 16.0* 15.7* -- -- LACTATEVEN 2.4* 2.7* 2.7* 4.8* 2.9* VBG (Venous Blood Gas) Recent Labs 05/12/23 0705/12/2331705/12/2310505/11/23193905/11/23 144 LACTATEVEN 2.4* 2.7* 2.7* 4.8* 2.9* Mixed Venous Sat Recent Labs 05/12/23 0508 05/12/23 0321 05/12/23 0114 05/12/23 0030 [id number] 30.7 32.7 37.3 25.1 Objective: Vitals Last [...] 05/12/23199 Patency/Maintenance infusing 05/12/23199 Phlebitis 0-->no symptoms 05/12/23 06 Infiltration 0-->no symptoms 05/12/23 06 Site Signs/Symptoms no redness;no swelling;no warmth 05/12/23199 [...] 95.1* 97.1* 96.2* 97.0* Recent Labs 05/12/23 0605/12/23 0105 05/11/23 0442 05/10/238 05/09/23 0400 05/08/23 1600 05/08/23 1138 [...] who have questions please contact the health healthcare account manager that requested your imaging first. Electronically signed by: ALIX RUVALCABA MD, [facility] [place] [facility] ([phone]), at 05/10/2023 1:[address] Cardiac for [...] who have questions please contact the health healthcare account manager that requested your imaging first. Electronically signed by: Cullen Narayanan MD, [facility] [place] [facility] ([phone]), at 05/11/2023 4:[address] Angiogram Abdomen [...] who have questions please contact the health healthcare account manager that requested your imaging first. Electronically signed by: Eileen Gomes MD, [facility] [place] [facility] ([phone]), at 05/11/2023 2:42 PM XR Chest One [...] who have questions please contact the health healthcare account manager that requested your imaging first. Chest One [...] who have questions please contact the health healthcare account manager that requested your imaging first. Assessment & [...] and inotrope. She is planned for a gsgcv-at-tviaz TAVR this morning, which should hopefully improve [...] FACC Section of Cardiovascular Medicine [facility] [employer] Cut[employer] Machine Operatorliner man [facility] [employer] [facility] * Noreen Deutsch RN - 05/12/2023 [...] ejection fraction Mild coronary artery disease by [facility] 11/09/2022 Heart failure with reduced ejection [...] 05/11/2023 4:11 PM EDT Reported off to DATA COMPILER and pt transferred over in the bed for higher level of care. * Antelmo Sharma MD - 05/11/2023 9:45 AM EDT Images from the original note were not included. [facility] [place] [address] [place] [address] STRUCTURAL HEART DISEASE CONSULTATION NOTE PRIMARY CARE [...] who had been referred for possible TAVR pgoqa-ro-iejrb evaluation. Her primary symptoms are of dyspnea [...] otherwise negative. Ms. Thacker is originally from [facility]. 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 She states that, [...] ejection fraction Mild coronary artery disease by [facility] 11/09/2022 Heart failure with reduced ejection [...] 40 mEq 40 mEq Oral Q4H PRN Delon Cristina N, MD Or potassium chloride ER (Klor-Con M) [...] hour(s)) Lactate, whole blood, send to lab ([facility]) Result Value Ref Range Lactate WB 3.1 (H) 0.5 - 2.2 mmol/L Heparin (unfractionated) Level Result Value Ref Range Heparin UFH Level 0.46 IU/mL Lactate, whole blood, send to lab ([facility]) Result Value Ref Range Lactate WB 1.8 [...] evident in Anterolateral leads Confirmed by MD Chua Shawn M. ([id number]) on 05/10/2023 8:11:46 AM Cardiac Cath 11/09/2022 [...] alert Dr. Hudson of her inpatient status, [place] primary cardiac surgeon. Based on recent clinic visit, tentative plan had been for TAVR JANET issa doublecheck given her chronological age. Cardiac cath 11/09/2022 notable for non-obstructive coronary disease. TAVR CTAs planned for today. Will review her case with cardiac surgery to determine best timing and therapies for her valve intervention. Addendum 05/11/2023 6:48 PM Due to decompensating HFrEF, she was transferred to [facility] this afternoon for further management. TAVR CT imaging support for adequate ileofemoral access. Given her acute deterioration today, will planfor RTF TAVR on 05/12/2023. Brody Kaplan APRN Structural Heart Disease Pager [phone] Please see addendum by Dr. Sharma for [...] signed and dated. Antelmo Sharma MD Pager [phone] * Harini Lance MD - 05/11/2023 6:06 AM EDT Images from the original note were not included. Cardiology Progress Note Patient info: Name: Purnima Thacker : 1955 PCP: Magdalena Acosta MD PCP phone number: [phone] Date of Admission: 05/08/2023 ( Hospital Day [...] warmth;no swelling;no redness 05/08/231999 Labs: Recent Labs 05/11/2344105/10/2322705/09/2339905/08/23 1138 WBC 7.0 5.2 6.4 4.1 HGB [...] 0.90 1.03 -- 1.02 LFTs Recent Labs 10/10/23 0442 10/09/23 0228 10/08/23 0400 PROT 7.2 6.4 6.6 ALBUMIN 3.7 [...] who have questions please contact the health healthcare account manager that requested your imaging first. Electronically signed by: ALIX RUVALCABA MD, [facility] [place] [facility] ([phone]), at 05/10/2023 1:25 PM TTE: 05/08 -Left [...] 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) Mild coronary artery disease by [facility] 11/09/2022 Hyperlipidemia, unspecified NICOLAS (obstructive sleep [...] PCP: Magdalena Acosta MD PCP phone number: [phone] Date of Admission: 05/08/2023 ( Hospital Day [...] 040 76.8 kg (169 lb 5 oz) 05/08/23899 [...] 136* MCV 97.1* 96.2* 97.0* Recent Labs 05/10/238 05/09/23 0400 05/08/23 1600 05/08/23 1138 NA 134* [...] 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) Mild coronary artery disease by [facility] 11/09/2022 Hyperlipidemia, unspecified NICOLAS (obstructive sleep [...] PCP: Magdalena Acosta MD PCP phone number: [phone] Date of Admission: 05/08/2023 ( Hospital Day [...] Gas) No results found for: PHART, PO2ART, GKF0USQ, NHC0BFO Microbiology: Microbiology Results (Last 30 days) No [...] PPx: Diet: Daily Healthy Menu Choices/Cardiac diet ([facility]-Diet) Lines: Peripheral IV Line - Single Lumen [...] 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) Mild coronary artery disease by [facility] 11/09/2022 Hyperlipidemia, unspecified NICOLAS (obstructive sleep [...] fraction I35.0 Mild coronary artery disease by [facility] 11/09/2022 I25.10 Heart failure with reduced ejection fraction due to heart valve disease I50.20, I38 Cardiogenic shock R57.0 S/P TAVR (transcatheter aortic valve replacement) Z95.2 Past Medical History: Diagnosis Date Anemia Past Surgical History: Procedure Laterality Date PRG CATH [facility] LEFT HEART CATH & ARTS W/INJ & ANGIO IMG S&I N/A 11/09/2022 CORONARY ANGIOGRAPHY; W [facility],POSSIBLE PCI (WRVU 5.6) performed by Mario Alberto Escobedo MD at [facility] CATH LABS PRO AORTOPLAS FOR SUPRAVALV STEN N/A 09/21/2016 @AORTOPLASTY FOR SUPRAVALVULAR STENOSIS (WRVU 29.33) performed by Alirio Hudson MD at [facility] MAIN OR PRO REPLACEMENT PROSTHETIC AORTIC VALVE OPEN W CARDIOPULMONARY BYPASS HOMOGRF/STENT N/A 09/21/2016 @REPLACE AORTIC VALVE, OPEN, W\CPB, W\PROSTHETIC VALVE (WRVU 41.32) performed by Alirio Hudson MD at [facility] MAIN OR Social History and [...] fraction I35.0 Mild coronary artery disease by [facility] 11/09/2022 I25.10 Heart failure with reduced ejection fraction due to heart valve disease I50.20, I38 Cardiogenic shock R57.0 S/P TAVR (transcatheter aortic valve replacement) Z95.2 Past Medical History: Diagnosis Date Anemia Past Surgical History: Procedure Laterality Date PRG CATH PLMT LEFT HEART CATH & ARTS W/INJ & ANGIO IMG S&I N/A 11/09/2022 CORONARY ANGIOGRAPHY; W [facility],POSSIBLE PCI (WRVU 5.6) performed by Mario Alberto Escobedo MD at [facility] CATH LABS PRO AORTOPLAS FOR SUPRAVALV STEN N/A 09/21/2016 @AORTOPLASTY FOR SUPRAVALVULAR STENOSIS (WRVU 29.33) performed by Alirio Hudson MD at [facility] MAIN OR PRO REPLACEMENT PROSTHETIC AORTIC VALVE OPEN W CARDIOPULMONARY BYPASS HOMOGRF/STENT N/A 09/21/2016 @REPLACE AORTIC VALVE, OPEN, W\CPB, W\PROSTHETIC VALVE (WRVU 41.32) performed by Alirio Hudson MD at [facility] MAIN OR Social History and [...] days, which prompted her to present to [employer]. She also endorses some intermittent retrosternal chest pain with exertion.She endorses some dizziness with exertion, but has not gotten faint or passed out. At [employer] she was noted to be afebrile, blood pressure 105/64, HR 120s, satting 95% on 2L NC. Labs from [employer] are below, of note she had elevated [...] 89/59, which prompted the transfer to us. [employer] labs: CBC - Hgb 10.5 CMP - Cr 1.1 BNP 84569 HsTrop 1358 Lactate 1.6 D-dimer 1183 Interval History Patient was admitted to [facility] due to concern on low BP [...] Klaudia Reid MD Internal Medicine PGY-1 Pager [phone], M1-S1 Service Associated attestation - Juan Luis Gonzalez MD - 05/08/2023 10:00 PM EDT Cardiology Attending Addendum Active Hospital Problems Diagnosis Symptomatic severe aortic stenosis with low ejection fraction Heart failure with reduced ejection fraction due to heart valve disease Mild coronary artery disease by [facility] 11/09/2022 Hyperlipidemia, unspecified History of aortic [...] PCP: Magdalena Acosta MD PCP phone number: [phone] Date of Admission: 05/08/2023 ( Hospital Day 0 days ) Attending:Enrique Chua MD ID: Purnima Thacker is a 67 y.o. female w/ PMH of s/p bioprosthetic AVR in 2016 with recent concern for severe restenosis, HTN, HLD, mixed connective tissue disease, who presents in transfer from [employer] with worsening BONILLA and weight gain concerning [...] four days, which promptedher to present to [employer]. She also endorses some intermittent retrosternal chest pain with exertion. She endorses some dizziness with exertion, but has not gotten faint or passed out. At [facility] she was noted to be afebrile, blood pressure 105/64, HR 120s, satting 95% on 2L NC. Labs from [facility] are below, of note she had elevated [...] 89/59, which prompted the transfer to us. [facility] labs: CBC - Hgb 10.5 CMP - Cr 1.1 BNP 05752 HsTrop 1358 Lactate 1.6 D-dimer 1183 Vasoactive [...] tissue disease, who [facility] B[facility]ILLA and weight gain concerning for [...] #Routine Diet: Daily Healthy Menu Choices/Cardiac diet ([facility]-Diet) DVT Prophylaxis: heparin gtt GI Prophylaxis: none [...] to the planned procedure. Hand Hygiene: The sports trainer did perform hand hygiene prior to arterial [...] Successful arterial line placement. Crispin Timmons MD Disintegrator Associated attestation - Onelia Schwartz MD - [...] (flow was non-pulsatile) and appearance of blood. Schneider-Marily catheter was placed and locked at 55 [...] discharge to home with family/friend support and [place] [facility], pt will also have FWW delivered to her prior to her d/c. Needs for Transition of Care: Plan for discharge is: Home w/ Services Outpatient Agency/Support Group Needs: Homecare agency Home Health Services: Physical Therapy, Occupational Therapy Agency Referrals & Follow-up Care: Contact information for follow-up [facility] H[facility], [place] [address] [place] [address] Cardiac Rehab, [address] [place] [address] [facility], [place] [address] [place] [address] Transportation: family or friend will provide *Brother [...] Type: *No Product type* / Secondary Insurance: [employer] [facility] [place] Prescription Coverage: Yes This plan was formulated with input from patient, family (please identify family/friend involved ifapplicable) and team. All are in agreement with plan. Aliza Martino MSN-Ed, RN ACM front office secretary Office of Care Management Pager #[phone] * Plan of Care - Favian Mckeon [...] Lana Chaudhary RN - 05/21/2023 4:46 PM EDTSummary: [place] [facility] referral OFFICE OF CARE MANAGEMENT [...] Type: *No Product type* / Secondary Insurance: [employer] [facility] [place] Last Physical Therapy Recommendation: (Home with assist from Brother; Friend arriving Tues) with walker, front wheeled Last Occupational Therapy Recommendation: swing bed rehabilitation facility, assisted facility (vs home with support for IADLs) with walker, front wheeled, shower chair Plan for discharge is: Home w/ Services Outpatient Agency/Support Group Needs: Homecare agency Home Health Services: Physical Therapy, Occupational Therapy Agency Referrals: I have met with the patient to: discuss discharge planning needs. describing our affiliations within the [facility] and educate about their right to choose where referrals are sent. provide a list of Home Health Agencies / Durable Medical Equipment vendors which serve their preferred geographic area. They have requested referrals to: [facility] [address] [place] [id number] [facility] @ [facility] [place], [place] Note routed to a Vp Of Customer Experience Strategy who will communicate referrals to facilities and provide any required information. Transportation: family or friend will provide *Brother Raymond on Tuesday 05/22 at 1000 Barriers to discharge: Does not have home 22/02 assist available until tomorrow Tuesday 05/22 Plan going forward: Discharge home into the 22/02 home care of brother Raymond with [facility] FWW and [place] [facility] PT/OT services on Tuesday 05/22 [...] Attending: All Staff: Staff Role Juanita Almaguer Head Orthopedic Team Physician Laure Ricks PA Physician [employer] Technology Teacher Magdalena Rodriguez RN Radiology Nurse Consuelo Espinoza [...] Type: *No Product type* / Secondary Insurance: [facility] [place] Last Physical Therapy Recommendation: assisted facility, swing bed rehabilitation facility with to be determined Last Occupational Therapy Recommendation: with Plan for discharge is: Fdc Facility / Swing Outpatient Agency/Support Group Needs: None Agency Referrals: Based on discussions with the multi-disciplinary healthcare team, the patient would benefit from SNF / Swing level of care at discharge. I have met with the patient to: discuss discharge planning needs. provide the [facility], Office of Care Management letter from the Decorator [employer] pertaining to rehab referrals. provide a letter describing our affiliations within the [facility] and educate about their right to choose where referrals are sent. provide the CMS Star Quality Rating handout. review the different levels of rehab including SNF, swing, and acute. provide a list of facilities within their preferred geographic area. request that they provide at least three choices for referral. They have requested referrals to: [facility] [address] [place] [address] [facility] ([facility]) [address] [place] [address] (Accepts pts only after exhausting all other local SNF options) [facility] (Swing) ([facility]) [address] [place] [address] PHONE: [phone] FAX: [phone] Simin Benavides [place] (Swing) ([facility]) [address] [place] [address] PHONE: [phone] FAX: [phone] Note routed to a Vp Of Customer Experience Strategy who will communicate referrals to facilities and [...] Crenshaw RN - 05/17/2023 10:25 AM EDT [facility] CARDIAC REHABILITATION Purnimakary Thacker was seen today regarding participation in the outpatient Phase 2 Cardiac Rehabilitation at [facility]. The patient agrees to a referral to [...] from the original note were not included. [facility] NEPHROLOGY/HYPERTENSION CONSULT NOTE PATIENT: Purnima Thacker [...] in her course. She ultimately underwent a qbvbh-nb-mohxk procedure on and tolerated it well (see [...] asterixis. STUDIES: LABS: CBC: Recent Labs 05/14/23 0110 05/13/23 01105/12/23 1405 05/12/23 0105 WBC 11.2* 8.6 -- [...] 1423 05/12/23 1105 PHART 7.39 7.37 7.34* OUN5THC 33* 36 42 PO2ART 101 102 73* ASL0BIA 19.5* 20.4 22.1 LACTATEVEN 1.5 1.8 2.8* MPF2VMX 40 40 40 PFRATIOART2 252 255 182 VBG (Venous Blood Gas) Recent Labs 05/12/23 1557 05/12/23 1423 05/12/23 1105 LACTATEVEN 1.5 1.8 2.8* Mixed Venous Sat Recent Labs 05/12/23 1425 05/12/23 0508 05/12/23 0321 M9CSOX8 59.9 30.7 32.7 LFT's: Recent Labs 05/14/23 0110 05/13/23 0115 05/12/23 0600 BILITOT 0.4 0.5 0.9 BILIDIR -- 0.3 -- ALBUMIN 3.6 3.0* 3.5 ALKPHOS 86 85 100 ALT 437* 903* 1,174* AST 319* 792* 1,435* No results found for: UPROTCREAT No results found for: TPROTEINPEP, ALBELECT No results found for: MICROALBUR, MASA57OCA No results found for: HA1C Lab Results Component Value Date CALCIUM 8.5 05/14/2023 PHOS 4.7 (H) 05/08/2023 No results found for: 25OHVITD MICROBIOLOGY: ProcedureComponentValueUnitsDate/TimeUrine culture [[id number]]Collected: 05/11/23 192Lab Status: Final resultSpecimen: Clean Catch UrineUpdated: 05/12/23 [...] consulted for assessment if this patient needs MOLD HOISTER. Atthis time, we can likely hold off on MOLD HOISTER. Her volume status appears sufficient and her metabolic kanwal angements with mild acidosis is not too profound. Patient does not have significant uremic symptoms. We can hold off for today, but the patient is a high risk candidate for needing MOLD HOISTER in future daysespecially if her Cr curve trends the direction it is for the next several days. S/p Wbcbx-jy-Gkgoj TF TAVR: Management per cardiology. On milrinone gtt. PLAN: - Please obtain following diagnostics: renal US, urinalysis, urine prot/Cr ratio, urine albumin/Cr ratio, CK, uric acid, serum osmol, daily VBGs - No acute indications for MOLD HOISTER/dialysis. We will keep close eye on Cr trend, volume status, and metabolics to ensure patient still does not need MOLD HOISTER as she ensues intrinsic renal recovery - [...] M.H.Katherine., M.A. PGY-V Nephrology-Hypertension Fellow Page # [phone] [facility] [address] 2nd floor, Technology Resource Teacher [address] [place] [address] * Care Management - Mario Alberto Olmos [...] Type: *No Product type* / Secondary Insurance: [facility] Plan for discharge is: Home w/o Services [...] for a TAVR at 730. Returned to [facility] at 0945. Was intubated in the propagator laborer due to agitation. Maintained bedrest for 5 [...] Operative Note Patient Name: Purnima Thacker : [id number] MR#: [id number] Case Date: 05/12/2023 Surgeon: Surgeon(s) and Role: [...] procedure Note: Patient Name: Purnima Thacker : [id number] MR#: [id number] Case Date: 05/12/2023 Operators Surgeon: Surgeon(s) and Role: Panel 1: * Antelmo Sharma MD - Primary * eRbekah Tejeda MD - Fellow - Assisting Panel [...] main with 4.0 x 30 mm Resolute [place] Drug Eluting Stent Perclose x1 + Angio-seal 8 Fr x1, RFA Manual pressure, LFA Manual pressure, LFV Endotracheal intubation (performed by cardiac anesthesia) Preliminary findings: Successful right transfemoral TAVR Wwxgw-cf-Faoja with a 23 mm Lai 3 THV. [...] MD, M.Sc. Structural Heart Disease Fellow Pager :[phone] Antelmo Sharma MD Pager [phone] * Op Note - Alirio Hudson MD - 05/12/2023 7:37 AM EDT Preop Diagnosis: Severe aortic stenosis, symptomatic. Postop Diagnosis: Same. Procedure: Transfemoral TAVR procedure with 23mm valve. Surgeon: Alirio Hudson M.D. Customer Solutions Coordinator: Danny CULP Procedure: The patient was taken to the propagator laborer. The patient had monitored anesthesia care. 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 [facility] [place] [address] STRUCTURAL HEART DISEASE CONSULTATION NOTE PRIMARY CARE [...] who had been referred for possible TAVR [id number] evaluation. Her primary symptoms are of dyspnea [...] otherwise negative. Ms. Thacker is originally from [facility]. 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 PROBLEM LIST: Patient Active Problem List Diagnosis Symptomatic severe aortic stenosis with low ejection fraction Mild coronary artery disease by [facility] 11/09/2022 Heart failure with reduced ejection [...] hour(s)) Lactate, whole blood, send to lab ([facility]) Result Value Ref Range Lactate WB 1.8 [...] leads Confirmed by MD Harshil, Enrique Bell ([id number]) on 05/10/2023 8:11:46 AM Assessment and Plan: [...] Antelmo Sharma MD Structural Heart Disease Pager [phone] * Plan of Care - Sarahi Nice RN - 05/10/2023 3:55 AM Brionna LYLE Note and Care Plan Sarahi Nice RN assumed care of pt at time of their arrival to room 362 from [facility]. Pt voices shortness of breath at [...] Intervention: Prevent Skin Injury Flowsheets (Taken 05/10/2023 020) Body Position: position changed independently Intervention: Prevent [...] listening utilized Taken 05/08/20231999 by Alivia Kauffman mattress stuffer/Support System Care: self-care encouraged support provided Problem: [...] Manage Obstructive Sleep Apnea Flowsheets (Taken 05/09/2023 8570) NPPV/CPAP Maintenance: home PAP equipment/settings used * Initial Assessments - Alie Bradshaw RN - 05/09/2023 3:42 PM EDT Office of Care Management Initial Assessment Alie Bradshaw RN reviewed record and discussed patient with Care Team. Source of Information: Team, bedside nurse, medical record, and Patient Introduced self/reviewed role; services accepted. Admitted From: Transfer from another hospital Location: admitted from [employer] Reason for Hospitalization: Critical aortic stenosis, causing symptoms Past medical History: Past Medical History: Diagnosis Date Anemia Hospitalizations Within the Past 30 Days: no previous admission in last 30 days Current Decision-Making Capacity: Self If AD's have not been completed the following surrogate would be surrogate decision maker per [place] surrogate decision making law. (Only good for 180 days) Any patient receiving care in [place] must abide by [place] law. The hierarchy for surrogate decision making [...] (i) The agent with financial power of spar cap beveler or a conservator appointed in accordance with [...] none Home Address confirmed as: [address] [address] Social & Family Supports: All names listed [...] Type: *No Product type* / Secondary Insurance: [facility] [place] ONLY if patient has Medicare A&B - Does this patient have secondary insurance?: Yes ; Prescription Coverage: Yes Preferred Pharmacy: updated to [facility] in [facility] Status: Patient is a : No Primary Care Provider confirmed: Magdalena Acosta MD [phone] Patient/Caregiver Goals of Treatment: Potential Needs for [...] transition of care planning. Alie Bradshaw RN, Pager-[phone] * Plan of Care - Emily Lucero RN - 05/08/2023 2:54 PM EDT OUTCOME EVALUATION NOTE: OUTCOME SUMMARY: Pt arrived from [employer]. A&O, no c/o pain or SOB. Heparin [...] 11:30 AM EST Office [place] [address] Magdalena Peralta MD [facility] [place] [address] 03/01/2025 4:15 PM EDT Office Visit Dermatology at [address] [place] [id number] Marek Bonilla MD [address] [facility] [place] [address] Scheduled Referrals Name Type Priority Associated Diagnoses [...] EDT HC CBC,PLT & AUTO DIFF Routine 3 1:10 AM EDT COMPREHENSIVE METABOLIC PANEL (NON-FASTING) [...] Heart Cath W/Inj L Ventriculography, Img S&I ([id number]) 05/12/2023 7:37 AM EDT Aortic valve stenosis, [...] DOPP (07/08/2023 12:15 PM EST) EF 20 [employer] Anatomical Region Laterality Modality Cardiac Other 07/08/2023 10:3 1 AM EST Narrative 07/08/2023 12:26 PM EST 1 [place] [address] ? Echocardiogram Report Name: PURNIMA THACKER ?Study Date: 07/08/2023 10:31 AMBP: 118/60 mmHg ? Patient Location: : 1955 ? Height: 155 cm ? Account: [id number] Age: 67 yrs ? Weight: 74 kg Gender: Female ?BSA: 1.7 m2 Ordering Physician: ALIRIO HUDSON Referring Physician: VINOD JUÁREZ Performed By: Felicia Norris RODOLFO Reason For Study: S/P TAVR Exam Location: [facility]. Interpretation Summary Left ventricular systolic [...] no significant change (post-procedure). Procedure Limited - 93535. Doppler - 14249. Color Doppler - 04500. Satisfactory quality. This study is limited because [...] Note Lee Kincaid MD - 07/08/2023 [address] [place] [address] Echocardiogram Report Name: PURNIMA THACKER Study Date: 0:31 AMBP: 118/60 mmHg Patient Location: : 1955 Height: 155 cm Account: [id number] Age: 67 yrs Weight: 74 kg Gender: Female BSA: 1.7 m2 Ordering Physician: ALIRIO HUDSON Referring Physician: VINOD JUÁREZ Performed By: Felicia Norris RDCS Reason For Study: S/P TAVR Exam Location: [facility]. Interpretation Summary Left ventricular systolic [...] is nosignificant change (post-procedure). Procedure Limited - 07249. Doppler - 85391. Color Doppler - 61793. Satisfactoryquality. This study is limited because of [...] Glucose Lvl 93 65 - 199 mg/dL [facility] Comment:Diabetes: >=200 mg/d L plus symptoms BUN 19(H) 8 - 18 mg/dL [facility] Creatinine 0.81 0.70 - 1.20 mg/dL [facility] Sodium 142 135 - 145 mmol/L [facility] Potassium 3.8 3.5 - 5.0 mmol/L [facility] Comment: Please note: ??Patients with WBC >100,000 may have falsely elevated Potassium levels. ??For accurate Potassium quantification in these patients send serum separator tube (gold top) for subsequent determinations. ??Contact the Clinical Chemistry Laboratory if there are any questions. Chloride 104 98 - 107 mmol/L [facility] CO2 26 22 - 31 mmol/L [facility] Anion Gap 12 5 - 15 mmol/L [facility] Calcium 10.2 8.5 - 10.5 mg/dL [facility] Total Protein 7.4 6.1 - 8.0 g/dL [facility] Albumin 4.1 3.2 - 5.2 g/dL [facility] AST 24 0 - 30 unit/L [facility] ALT 12 0 - 30 unit/L [facility] Alk Phos 93 35 - 105 unit/L [facility] Total Bilirubin 0.3 0.2 - 1.3 mg/dL [facility] Estimated GFR 80 >=60 mL/min/1. 73 m?? [facility] Comment: This patient's estimated GFR [...] Lab Alirio Hudson MD CHEMISTRY ORDERABLE S [facility] [place] [address] * (ABNORMAL) Basic Metabolic Panel (non-fasting) (05/22/2023 3:57 AM EDT) Glucose Lvl 88 65 - 199 mg/dL [facility] Comment:Diabetes: >=200 mg/d L plus symptoms BUN 21(H) 8 - 18 mg/dL [facility] Creatinine 0.69(L) 0.70 - 1.20 mg/dL [facility] Sodium 136 135 - 145 mmol/L [facility] Potassium 3.6 3.5 - 5.0 mmol/L [facility] Comment: Please note: ??Patients with WBC >100,000 may have falsely elevated Potassium levels. ??For accurate Potassium quantification in these patients send serum separator tube (gold top) for subsequent determinations. ??Contact the Clinical Chemistry Laboratory if there are any questions. Chloride 102 98 - 107 mmol/L [facility] CO2 23 22 - 31 mmol/L [facility] Anion Gap 11 5 - 15 mmol/L [facility] Calcium 8.6 8.5 - 10.5 mg/dL [facility] Estimated GFR 95 >=60 mL/min/1. 73 m?? [facility] Comment: This patient's estimated GFR [...] Resulting Agency Comment Spec In Lab Mara Maggie OSBORN CHEMISTRY ORDERABL ES [facility] [place] [address] * (ABNORMAL) Basic Metabolic Panel (non-fasting) (05/21/2023 5:06 AM EDT) Glucose Lvl 87 65 - 199 mg/dL [facility] Comment:Diabetes: >=200 mg/d L plus symptoms BUN 25(H) 8 - 18 mg/dL [facility] Creatinine 0.84 0.70 - 1.20 mg/dL [facility] Sodium 136 135 - 145 mmol/L [facility] Potassium 3.6 3.5 - 5.0 mmol/L [facility] Comment: Please note: ??Patients with WBC >100,000 may have falsely elevated Potassium levels. ??For accurate Potassium quantification in these patients send serum separator tube (gold top) for subsequent determinations. ??Contact the Clinical Chemistry Laboratory if there are any questions. Chloride 102 98 - 107 mmol/L [facility] CO2 26 22 - 31 mmol/L [facility] Anion Gap 8 5 - 15 mmol/L [facility] Calcium 8.9 8.5 - 10.5 mg/dL [facility] Estimated GFR 76 >=60 mL/min/1. 73 m?? [facility] Comment: This patient's estimated GFR [...] Lab Mara Serrano APRN CHEMISTRY ORDERABL ES [facility] [place] [address] * Lavender Tube HOLD (05/20/2023 2:52 AM EDT) Lavender Hold Sample in lab. [facility] Blood Venous Draw / Unknown 05/20/2023 2:52 AM EDT 05/20/2023 3:04 AM EDT Mara Serrano FORGE OPERATOR HEMATOLOGY ORDERAB LES [facility] [place] [address] * (ABNORMAL) Basic Metabolic Panel (non-fasting) (05/20/2023 2:52 AM EDT) [facility] Glucose Lvl 152 65 - 199 mg/dL [facility] Comment:Diabetes: >=200 mg/d L plus symptoms BUN 33(H) 8 - 18 mg/dL [facility] Creatinine 0.82 0.70 - 1.20 mg/dL [facility] Sodium 137 135 - 145 mmol/L [facility] Potassium 3.7 3.5 - 5.0 mmol/L [facility] Comment: Please note: ??Patients with WBC >100,000 may have falsely elevated Potassium levels. ??For accurate Potassium quantification in these patients send serum separator tube (gold top) for subsequent determinations. ??Contact the Clinical Chemistry Laboratory if there are any questions. Chloride 99 98 - 107 mmol/L [facility] CO2 22 22 - 31 mmol/L [facility] Anion Gap 16(H) 5 - 15 mmol/L [facility] Calcium 9.0 8.5 - 10.5 mg/dL [facility] Estimated GFR 78 >=60 mL/min/1. 73 m?? [facility] Comment: This patient's estimated GFR [...] Agency Comment Spec In Lab Mara Thomasfield FORGE OPERATOR CHEMISTRY ORDERABL ES Performing Organization Address [facility] de Phone Number [facility] [place] [address] * (ABNORMAL) Potassium (05/20/2023 2:52 AM EDT) [facility] Potassium 3.4(L) 3.5 - 5.0 mmol/L [facility] Comment: Please note: ??Patients with [...] APRN CHEMISTRY ORDERABL ES Performing Organization Address [facility] de Phone Number [facility] [place] [address] * XR Chest PA & Lateral (Generic) [...] who have questions please contact the health healthcare account manager that requested your imaging first. ? Electronically signed by: Chyna Johnson MD, [facility] ??([phone]), at 05/19/2023 2:19 PM Narrative 05/19/2023 2:19 [...] patients who have questions please contactthe health healthcare account manager that requested your imaging first. Electronically signed by: Chyna Johnson MD, [facility]([phone]), at 05/19/2023 2:19 PM Alirio Hudson MD IMG DX ORDERABLES * (ABNORMAL) Basic Metabolic Panel (non-fasting) (05/19/2023 5:49 AM EDT) Glucose Lvl 93 65 - 199 mg/dL [facility] Comment:Diabetes: >=200 mg/d L plus symptoms BUN 45(H) 8 - 18 mg/dL [facility] Creatinine 1.02 0.70 - 1.20 mg/dL [facility] Sodium 138 135 - 145 mmol/L [facility] Potassium 3.9 3.5 - 5.0 mmol/L [facility] Comment: Please note: ??Patients with WBC >100,000 may have falsely elevated Potassium levels. ??For accurate Potassium quantification in these patients send serum separator tube (gold top) for subsequent determinations. ??Contact the Clinical Chemistry Laboratory if there are any questions. Chloride 102 98 - 107 mmol/L [facility] CO2 26 22 - 31 mmol/L [facility] Anion Gap 10 5 - 15 mmol/L [facility] Calcium 9.7 8.5 - 10.5 mg/dL [facility] Estimated GFR 60 >=60 mL/min/1. 73 m?? [facility] Comment: This patient's estimated GFR [...] Agency Comment Spec In Lab Mara Serrano FORGE OPERATOR CHEMISTRY ORDERABL ES [facility] [place] [address] * IR Chest Tube Placement Right (05/18/2023 [...] Glucose Lvl 95 65 - 199 mg/dL [facility] Comment:Diabetes: >=200 mg/d L plus symptoms BUN 71(H) 8 - 18 mg/dL [facility] Comment:result rechecked-JSJ Creatinine 1.64(H) 0.70 - 1.20 mg/dL [facility] Comment:result rechecked-JSJ Sodium 137 135 - 145 mmol/L [facility] Potassium 3.7 3.5 - 5.0 mmol/L [facility] Comment: Please note: ??Patients with WBC >100,000 may have falsely elevated Potassium levels. ??For accurate Potassium quantification in these patients send serum separator tube (gold top) for subsequent determinations. ??Contact the Clinical Chemistry Laboratory if there are any questions. Chloride 100 98 - 107 mmol/L [facility] CO2 24 22 - 31 mmol/L [facility] Anion Gap 13 5 - 15 mmol/L [facility] Calcium 9.7 8.5 - 10.5 mg/dL [facility] Estimated GFR 34(L) >=60 mL/min/1. 73 m?? [facility] Comment: This patient's estimated GFR [...] Agency Comment Spec In Lab Mara Serrano FORGE OPERATOR CHEMISTRY ORDERABL ES [facility] [place] [address] * XR Chest PA & Lateral (Generic) [...] who have questions please contact the health healthcare account manager that requested your imaging first. ? [...] patients who have questions please contactthe health healthcare account manager that requested your imaging first. Electronically signed by: Ghassan Reyes MD, [facility]([phone]), at 05/17/2023 11:46 AM Alirio Hudson MD IMG DX ORDERABLES * (ABNORMAL) Comprehensive metabolic panel (non-fasting) (05/17/2023 4:35 AM EDT) Glucose Lvl 89 65 - 199 mg/dL [facility] Comment:Diabetes: >=200 mg/d L plus symptoms BUN 97(H) 8 - 18 mg/dL [facility] Creatinine 2.97(H) 0.70 - 1.20 mg/dL [facility] Comment:result rechecked-JS Sodium 135 135 - 145 mmol/L [facility] Potassium 4.1 3.5 - 5.0 mmol/L [facility] Comment: Please note: ??Patients with WBC >100,000 may have falsely elevated Potassium levels. ??For accurate Potassium quantification in these patients send serum separator tube (gold top) for subsequent determinations. ??Contact the Clinical Chemistry Laboratory if there are any questions. Chloride 97(L) 98 - 107 mmol/L [facility] CO2 22 22 - 31 mmol/L [facility] Anion Gap 16(H) 5 - 15 mmol/L [facility] Calcium 9.6 8.5 - 10.5 mg/dL [facility] Total Protein 6.5 6.1 - 8.0 g/dL [facility] Albumin 3.7 3.2 - 5.2 g/dL [facility] AST 58(H) 0 - 30 unit/L [facility] ALT 66(H) 0 - 30 unit/L [facility] Alk Phos 86 35 - 105 unit/L [facility] Total Bilirubin 0.6 0.2 - 1.3 mg/dL [facility] Estimated GFR 17(L) >=60 mL/min/1. 73 m?? [facility] Comment: This patient's estimated GFR [...] Lab Alirio Hudson MD CHEMISTRY ORDERABLE S [facility] [place] [address] * Potassium (05/16/2023 11:15 PM EDT) Potassium 3.7 3.5 - 5.0 mmol/L [facility] Comment: Please note: ??Patients with [...] CHEMISTRY ORDERABLE S Performing Organization Address [facility]/ZIP Co de Phone Number [facility] [place] [address] * Magnesium (05/16/2023 5:22 PM EDT) [facility] Magnesium 0.96 0.69 - 1.07 mmol/L [facility] Blood 05/16/2023 5:22 PM EDT 05/16/2023 5:27 PM EDT Narrative Resulting Agency Comment Spec In Lab Alirio Hudson MD CHEMISTRY ORDERABLE S Performing Organization Address [facility]/ZIP Co de Phone Number [facility] [place] [address] * (ABNORMAL) Basic Metabolic Panel (non-fasting) (05/16/2023 5:22 PM EDT) Pathologist [facility] Glucose Lvl 106 65 - 199 mg/dL [facility] Comment:Diabetes: >=200 mg/d L plus symptoms BUN 103(H) 8 - 18 mg/dL [facility] Creatinine 3.91(H) 0.70 - 1.20 mg/dL [facility] Comment:result rechecked-imm Sodium 132(L) 135 - 145 mmol/L [facility] Potassium 3.6 3.5 - 5.0 mmol/L [facility] Comment: Please note: ??Patients with WBC >100,000 may have falsely elevated Potassium levels. ??For accurate Potassium quantification in these patients send serum separator tube (gold top) for subsequent determinations. ??Contact the Clinical Chemistry Laboratory if there are any questions. Chloride 92(L) 98 - 107 mmol/L [facility] CO2 22 22 - 31 mmol/L [facility] Anion Gap 18(H) 5 - 15 mmol/L [facility] Calcium 9.7 8.5 - 10.5 mg/dL [facility] Estimated GFR 12(L) >=60 mL/min/1. 73 m?? [facility] Comment: This patient's estimated GFR [...] Lab Alirio Hudson MD CHEMISTRY ORDERABLE S [facility] [place] [address] * (ABNORMAL) Potassium (05/16/2023 11:43 AM EDT) Potassium 3.3(L) 3.5 - 5.0 mmol/L [facility] Comment: Please note: ??Patients with [...] Lab Alirio Hudson MD CHEMISTRY ORDERABLE S [facility] [place] [address] * (ABNORMAL) Ferritin (05/16/2023 4:41 AM EDT) Pathologist [facility] Ferritin 1,813(H) 30 - 400 ng/mL [facility] Comment: Pediatric reference ranges not verified at [facility], interpret with caution. Reference ranges for females greater than 50 years of age approach values for men, i.e., 30-400 ng/mL. Blood 05/16/2023 4:41 AM EDT 05/16/2023 4:54 AM EDT Narrative Resulting Agency Comment Spec In Lab Kristopher Ayoub MD CHEMISTRY ORDERABLES [facility] [place] [address] * (ABNORMAL) PTH (05/16/2023 4:41 AM EDT) [facility] PTH 120(H) 15 - 65 pg/mL [facility] Blood 05/16/2023 4:41 AM EDT 05/16/2023 4:54 AM EDT Narrative Resulting Agency Comment Spec In Lab Kristopher Ayoub MD CHEMISTRY ORDERABLES [facility] [place] [address] * Vitamin D, 25-Hydroxy (05/16/2023 4:41 AM EDT) 25-OH Vit D Total 33 21 - 100 ng/mL [facility] 25-OH Vit D Interp Sufficient [facility] Blood 05/16/2023 4:41 AM EDT 05/16/2023 4:54 AM EDT Narrative Resulting Agency Comment Spec In Lab Kristopher Ayoub MD CHEMISTRY ORDERABLES [facility] [place] [address] * (ABNORMAL) Blood Gas Venous ([facility]) (05/16/2023 4:22 AM EDT) pH Mike 7.41 7.32 - 7.42 [facility] pCO2 Mike 32(L) 41 - 51 mmHg [facility] pO2 Mike 73(H) 25 - 40 mmHg [facility] HCO3 Mike 19.6 mmol/L [facility] BE Mike -5.1 mmol/L [facility] Hgb Blood Gas 9.7(L) 11.7 - 15.5 g/dL [facility] O2HB Mike 92.8 % [facility] COHB Mike 0.1 % [facility] Comment: Nonsmokers: 0.5-1.5% COHB Smokers: Variable, but usually less than 10% Toxic: 20-30% COHB Lethal: Greater than 60% COHB METHB Mike 0.3 <=1.5 % [facility] Na Whole Blood 130(L) 135 - 145 mmol/L [facility] K Whole Blood 3.7 3.5 - 5.0 mmol/L [facility] Comment: Please note: Patients with WBC >100,000 may have falsely elevated Potassium levels. Contact the Clinical Chemistry Laboratory if there are any questions. ICa Whole Blood 1.15 1.15 - 1.33 mmol/L [facility] Comment: Note: ??Total bilirubin higher than 20 mg/dL may lead to falsely low ionized calcium. CL Whole Blood 95(L) 98 - 107 mmol/L [facility] Gluc Whole Bld 82 65 - 199 mg/dL [facility] Comment:Diabetes: >=200 mg/d L plus symptoms Lactate WB 1.1 0.5 - 2.2 mmol/L [facility] BGas Source Venous [facility] Blood Venous Draw / Unknown 05/16/2023 4:22 AM EDT 05/16/2023 4:31 AM EDT Narrative Resulting Agency Comment Spec In Lab Bonita TOBAR CHEMISTRY ORDERABLES Performing Organization Address City/State/[facility] Co de Phone Number [facility] [place] [address] * (ABNORMAL) Differential, Automated (05/16/2023 4:20 AM EDT) Neutrophils % 84.1 % [facility] Neutr Abs (ANC) 6.22(H) 1.70 - 6.10 x10(3)/mc L [facility] Lymphocytes % 5.8 % [facility] Lymphocytes Abs 0.4(L) 0.9 - 3.2 x10(3)/[facility] Monocytes % 8.8 % [facility] Monocyte Abs 0.6 0.3 - 0.9 x10(3)/[facility] Eosinophils % 0.4 % [facility] Eosinophils Abs 0.0 0.0 - 0.4 x10(3)/ L [facility] Basophils % 0.0 % [facility] Basophils Abs 0.0 0.0 - 0.1 x10(3)/ L [facility] Immature Gran % 0.90 % [facility] Comment: Immature granulocytes(IG's)percentage and absolute count will include metamyelocytes, myelocytes, and promyelocytes. Blood smears from CBCs yielding IG's will be scanned manually for concordance. If this scan disagrees with the automated IG or if promyelocytes are noted, a manual differential will be performed. Amanda Gran Abs 0.07(H) 0.00 - 0.04 x10(3)/ L [facility] Blood 05/16/2023 4:20 AM EDT 05/16/2023 4:29 AM EDT Narrative Resulting Agency Comment Spec In Lab James Agustin MD HEMATOLOGY ORDER JODIE [facility] [place] [address] * (ABNORMAL) Hemogram (05/16/2023 4:20 AM EDT) WBC 7.4 4.0 - 9.5 x10(3)/[facility] RBC 2.40(L) 4.00 - 5.21 x10(6)/[facility] Hemoglobin 7.8(L) 11.7 - 15.5 g/dL [facility] Hematocrit 22.5(L) 35.7 - 45.8 % [facility] MCV 93.8 82.6 - 94.4 [facility] MCH 32.5(H) 27.1 - 32.0 pg [facility] MCHC 34.7 31.7 - 35.0 g/dL [facility] Platelets 120(L) 145 - 357 x10(3)/[facility] RDWSD 42.9 37.0 - 46.0 [facility] RDWCV 12.9 11.5 - 14.1 % [facility] MPV 11.3 7.6 - 12.9 [facility] nRBC % Auto 0.7 % [facility] nRBC Abs Auto 0.050(H) 0.000 - 0.000 x10(3)/[facility] Blood 05/16/2023 4:20 AM EDT 05/16/2023 4:29 AM EDT Narrative Resulting Agency Comment Spec In Lab James Agustin MD HEMATOLOGY ORDER JODIE [facility] [place] [address] * (ABNORMAL) Basic Metabolic Panel (non-fasting) (05/16/2023 4:20 AM EDT) Glucose Lvl 89 65 - 199 mg/dL [facility] Comment:Diabetes: >=200 mg/d L plus symptoms BUN 108(H) 8 - 18 mg/dL [facility] Creatinine 4.74(H) 0.70 - 1.20 mg/dL [facility] Comment:result rechecked-OLIVA Sodium 132(L) 135 - 145 mmol/L [facility] Potassium 3.9 3.5 - 5.0 mmol/L [facility] Comment: Please note: ??Patients with WBC >100,000 may have falsely elevated Potassium levels. ??For accurate Potassium quantification in these patients send serum separator tube (gold top) for subsequent determinations. ??Contact the Clinical Chemistry Laboratory if there are any questions. Chloride 95(L) 98 - 107 mmol/L [facility] CO2 18(L) 22 - 31 mmol/L [facility] Anion Gap 19(H) 5 - 15 mmol/L [facility] Calcium 9.2 8.5 - 10.5 mg/dL [facility] Estimated GFR 10(L) >=60 mL/min/1. 73 m?? [facility] Comment: This patient's estimated GFR [...] MD CHEMISTRY ORDERABLE S Performing Organization Address City/[facility]/ZIP Co de Phone Number [facility] [place] [address] * (ABNORMAL) Iron and TIBC (05/16/2023 4:20 AM EDT) [facility] Iron 31 30 - 150 mcg/dL [facility] TIBC 259 250 - 450 mcg/dL [facility] Iron Saturation 12(L) 20 - 50 % [facility] Blood 05/16/2023 4:20 AM EDT 05/16/2023 4:29 AM EDT Narrative Resulting Agency Comment Spec In Lab Kristopher Ayoub MD CHEMISTRY ORDERABLES Performing Organization Address [facility] Co de Phone Number [facility] [place] [address] * (ABNORMAL) Basic Metabolic Panel (non-fasting) (05/15/2023 12:50 AM EDT) [facility] Glucose Lvl 101 65 - 199 mg/dL [facility] Comment:Diabetes: >=200 mg/d L plus symptoms BUN 109(H) 8 - 18 mg/dL [facility] Creatinine 5.62(H) 0.70 - 1.20 mg/dL [facility] Comment:result rechecked-KS Sodium 131(L) 135 - 145 mmol/L [facility] Comment:result rechecked-KS Potassium 3.7 3.5 - 5.0 mmol/L [facility] Comment: result rechecked-KS Please note: ??Patients with WBC >100,000 may have falsely elevated Potassium levels. ??For accurate Potassium quantification in these patients send serum separator tube (gold top) for subsequent determinations. ??Contact the Clinical Chemistry Laboratory if there are any questions. Chloride 92(L) 98 - 107 mmol/L [facility] Comment:result rechecked-KS CO2 18(L) 22 - 31 mmol/L [facility] Comment:result rechecked-KS Anion Gap 21(H) 5 - 15 mmol/L [facility] Calcium 8.9 8.5 - 10.5 mg/dL [facility] Estimated GFR 8(L) >=60 mL/min/1. 73 m?? [facility] Comment: This patient's estimated GFR [...] MD CHEMISTRY ORDERABLE S Performing Organization Address City/State/[facility] Co de Phone Number [facility] [place] [address] * (ABNORMAL) Hemogram (05/15/2023 12:50 AM EDT) WBC 9.1 4.0 - 9.5 x10(3)/[facility] RBC 2.19(L) 4.00 - 5.21 x10(6)/[facility] Hemoglobin 7.2(L) 11.7 - 15.5 g/dL [facility] Hematocrit 20.6(L) 35.7 - 45.8 % [facility] MCV 94.1 82.6 - 94.4 fL [facility] MCH 32.9(H) 27.1 - 32.0 pg [facility] MCHC 35.0 31.7 - 35.0 g/dL [facility] Platelets 109(L) 145 - 357 x10(3)/[facility] RDWSD 43.6 37.0 - 46.0 fL [facility] RDWCV 12.9 11.5 - 14.1 % [facility] MPV 10.4 7.6 - 12.9 fL [facility] nRBC % Auto 2.1 % [facility] nRBC Abs Auto 0.190(H) 0.000 - 0.000 x10(3)/[facility] Blood 05/15/2023 12:5 0 AM EDT 05/15/2023 12:52 AM EDT Narrative Resulting Agency Comment Spec In Lab Alirio Hudson MD HEMATOLOGY ORDERABL ES Performing Organization Address City/State/[facility] Co de Phone Number [facility] [place] [address] * (ABNORMAL) BLOOD GAS 2 VENOUS (05/15/2023 12:49 AM EDT) pH Mike 7.33 7.32 - 7.42 [facility] pCO2 Mike 37(L) 41 - 51 mmHg [facility] pO2 Mike 34 25 - 40 mmHg [facility] HCO3 Mike 19.1 mmol/L [facility] BE Mike -6.8 mmol/L [facility] Hgb Blood Gas 10.8(L) 11.7 - 15.5 g/dL [facility] O2HB Mike 58.1 % [facility] COHB Mike 0.3 % [facility] Comment: Nonsmokers: 0.5-1.5% COHB Smokers: Variable, but usually less than 10% Toxic: 20-30% COHB Lethal: Greater than 60% COHB METHB Mike 0.6 <=1.5 % [facility] Na Whole Blood 136 135 - 145 mmol/L [facility] K Whole Blood 3.7 3.5 - 5.0 mmol/L [facility] Comment: Please note: Patients with WBC >100,000 may have falsely elevated Potassium levels. Contact the Clinical Chemistry Laboratory if there are any questions. ICa Whole Blood 1.12(L) 1.15 - 1.33 mmol/L [facility] Comment: Note: ??Total bilirubin higher than 20 mg/dL may lead to falsely low ionized calcium. CL Whole Blood 95(L) 98 - 107 mmol/L [facility] Gluc Whole Bld 101 65 - 199 mg/dL [facility] Comment:Diabetes: >=200 mg/d L plus symptoms Lactate WB 1.3 0.5 - 2.2 mmol/L [facility] Flow Mike 1.0 LPM [facility] BGas Source Venous [facility] Blood 05/15/2023 12:4 9 AM EDT 05/15/2023 12:49 AM EDT Alirio Hudson MD CHEMISTRY ORDERABLE S [facility] [place] [address] * US Retroperitoneal Complete (05/14/2023 3:53 PM [...] PM Electronically signed by: Hayden Robledo MD, [facility] ([phone]), at 05/14/2023 4:32 PM Thank you for letting us participate in the care of this patient. If you are a health care provider and have any questions regarding this report, please contact the number above. For patients who have questions, please contact the health healthcare account manager that requested your imaging first. ? Hayden Robledo, Staff Physician Electronically Signed Final Report ?? 05/14/2023 04:39 pm Narrative 05/14/2023 4:39 PM EDT Renal ? (Signed Final 05/14/2023 04:39 pm) PATIENT INFO: ID #: ? [id number] ?: ??[birth year] (67 yrs)(F) Name: ? PURNIMA THACKER ?Visit Date: 05/14/2023 03:44 pm PERFORMED BY: Attending: ?Meena CULP, Hayden Stafford Resident: ? Anand Camejo MD Performed By: ? Consuelo Tello RDMS Referred By: ?ALIRIO HUDSON Location: ? [place] SERVICE(S) PROVIDED: URETRO - Retroperitoneal Complete - [id number] ? [id number] INDICATIONS: EVANS COMPARISON: CT: Abdomen/Pelvis 05/11/23 RIGHT [...] 05/14/2023 04:39 pm) PATIENT INFO: ID #: [id number] : 55 (67 yrs)(F) Name: PURNIMA THACKER Visit Date: 05/14/2023 03:44 pm PERFORMED BY: Attending: Hayden Robledo MD Resident: Anand Camejo MD Performed By: Consuelo Tello RDMS Referred By: ALIRIO HUDSON Location: [place] SERVICE(S) PROVIDED: URETRO - Retroperitoneal Complete - [id number] INDICATIONS: EVANS COMPARISON: CT: Abdomen/Pelvis 05/11/23 RIGHT [...] PM Electronically signed by: Hayden Robledo MD, [facility] ([phone]), at 05/14/2023 4:32 PM Thank you for letting us participate in the care of this patient. If you are a health care provider and have any questions regarding this report, please contact the number above. For patients who have questions, please contact the health healthcare account manager that requested your imaging first. Hayden Robledo, Staff Physician Electronically Signed Final Report 05/14/2023 04:39 pm Alirio Hudson MD IMG US GEN ORDERABL ES * CK (05/14/2023 3:17 PM EDT) CK, Total 123 0 - 160 unit/L [facility] Blood 05/14/2023 3:17 PM EDT 05/14/2023 3:31 PM EDT Narrative Resulting Agency Comment Spec In Lab Alirio Hudson MD CHEMISTRY ORDERABLE S Performing Organization Address City/[facility]/ZIP Co de Phone Number [facility] [place] [address] * (ABNORMAL) Uric acid (05/14/2023 3:17 PM EDT) Uric Acid 14.9(H) 2.5 - 6.5 mg/dL [facility] Blood 05/14/2023 3:17 PM EDT 05/14/2023 3:31 PM EDT Narrative Resulting Agency Comment Spec In Lab Alirio Hudson MD CHEMISTRY ORDERABLE S Performing Organization Address City/[facility]/ZIP Co de Phone Number [facility] [place] [address] * (ABNORMAL) Osmolality (05/14/2023 3:17 PM EDT) Osmolality 311(H) 275 - 295 mOsm/kg [facility] Blood 05/14/2023 3:17 PM EDT 05/14/2023 3:31 PM EDT Narrative Resulting Agency Comment Spec In Lab Alirio Hudson MD CHEMISTRY ORDERABLE S [facility] [place] [address] * (ABNORMAL) Differential, Automated (05/14/2023 1:10 AM EDT) Neutrophils % 87.2 % [facility] Neutr Abs (ANC) 9.74(H) 1.70 - 6.10 x10(3)/[facility] Lymphocytes % 3.9 % [facility] Lymphocytes Abs 0.4(L) 0.9 - 3.2 x10(3)/[facility] Monocytes % 7.9 % [facility] Monocyte Abs 0.9 0.3 - 0.9 x10(3)/[facility] Eosinophils % 0.0 % [facility] Eosinophils Abs 0.0 0.0 - 0.4 x10(3)/[facility] Basophils % 0.1 % [facility] Basophils Abs 0.0 0.0 - 0.1 x10(3)/[facility] Immature Gran % 0.90 % [facility] Comment: Immature granulocytes(IG's)percentage and absolute count will include metamyelocytes, myelocytes, and promyelocytes. Blood smears from CBCs yielding IG's will be scanned manually for concordance. If this scan disagrees with the automated IG or if promyelocytes are noted, a manual differential will be performed. Amanda Gran Abs 0.10(H) 0.00 - 0.04 x10(3)/[facility] Blood 05/14/2023 1:10 AM EDT 05/14/2023 1:24 AM EDT Narrative Resulting Agency Comment Spec In Lab Bonita TOBAR HEMATOLOGY ORDERABLE S [facility] [place] [address] * (ABNORMAL) Hemogram (05/14/2023 1:10 AM EDT) WBC 11.2(H) 4.0 - 9.5 x10(3)/[facility] RBC 2.19(L) 4.00 - 5.21 x10(6)/[facility] Hemoglobin 7.2(L) 11.7 - 15.5 g/dL [facility] Hematocrit 20.3(L) 35.7 - 45.8 % [facility] MCV 92.7 82.6 - 94.4 fL [facility] MCH 32.9(H) 27.1 - 32.0 pg [facility] MCHC 35.5(H) 31.7 - 35.0 g/dL [facility] Platelets 112(L) 145 - 357 x10(3)/[facility] RDWSD 41.4 37.0 - 46.0 [facility] RDWCV 12.5 11.5 - 14.1 % [facility] MPV 10.4 7.6 - 12.9 [facility] nRBC % Auto 1.5 % [facility] nRBC Abs Auto 0.170(H) 0.000 - 0.000 x10(3)/[facility] Blood 05/14/2023 1:10 AM EDT 05/14/2023 1:24 AM EDT Narrative Resulting Agency Comment Spec In Lab Bonita TOBAR HEMATOLOGY ORDERABLE S [facility] [place] [address] * (ABNORMAL) Comprehensive metabolic panel (non-fasting) (05/14/2023 1:10 AM EDT) Glucose Lvl 120 65 - 199 mg/dL [facility] Comment:Diabetes: >=200 mg/d L plus symptoms BUN 98(H) 8 - 18 mg/dL [facility] Creatinine 4.80(H) 0.70 - 1.20 mg/dL [facility] Comment:result rechecked-ssc Sodium 132(L) 135 - 145 mmol/L [facility] Potassium 4.1 3.5 - 5.0 mmol/L [facility] Comment: Please note: ??Patients with WBC >100,000 may have falsely elevated Potassium levels. ??For accurate Potassium quantification in these patients send serum separator tube (gold top) for subsequent determinations. ??Contact the Clinical Chemistry Laboratory if there are any questions. Chloride 94(L) 98 - 107 mmol/L [facility] CO2 18(L) 22 - 31 mmol/L [facility] Anion Gap 20(H) 5 - 15 mmol/L [facility] Calcium 8.5 8.5 - 10.5 mg/dL [facility] Total Protein 5.8(L) 6.1 - 8.0 g/dL [facility] Albumin 3.6 3.2 - 5.2 g/dL [facility] AST 319(H) 0 - 30 unit/L [facility] ALT 437(H) 0 - 30 unit/L [facility] Alk Phos 86 35 - 105 unit/L [facility] Total Bilirubin 0.4 0.2 - 1.3 mg/dL [facility] Estimated GFR 9(L) >=60 mL/min/1. 73 m?? [facility] Comment: This patient's estimated GFR [...] CHEMISTRY ORDERABLE S Performing Organization Address [facility] Co de Phone Number [facility] [place] [address] * APTT (05/13/2023 10:15 AM EDT) PTT 27 25 - 37 sec [facility] Comment: The PTT is NOT appropriate for heparin monitoring. Use the Anti-Xa level for heparin monitoring (HEP UFH) or LMWH monitoring (HEP LMW). A PTT less than 37 seconds generally indicates adequate hemostasis. Blood 05/13/2023 10:1 5 AM EDT 05/13/2023 10:46 AM EDT Narrative Resulting Agency Comment Spec In Lab Alirio Hudson MD HEMATOLOGY ORDERABL ES Performing Organization Address [facility] Co de Phone Number [facility] [place] [address] * (ABNORMAL) Prothrombin Time (05/13/2023 10:15 AM EDT) PT 14.6(H) 9.4 - 12.5 sec [facility] INR 1.3 [facility] Comment: An INR <2.0 indicates [...] HEMATOLOGY ORDERABL ES Performing Organization Address [facility] Co de Phone Number [facility] [place] [address] * EKG 12 Lead (05/13/2023 9:22 AM EDT) Ventricular rate 92 BPM MUSE SYSTEM Atrial Rate 92 BPM MUSE SYSTEM P-R Interval 140 ms MUSE SYSTEM QRS Duration 104 ms MUSE SYSTEM Q-T Interval 384 ms MUSE SYSTEM QTC Calculated (Bezet) 474 ms MUSE SYSTEM Calculated P Whipple 33 degrees MUSE SYSTEM Calculated R Whipple 41 degrees MUSE SYSTEM Calculated T Whipple -35 degrees MUSE SYSTEM INTERPRETATION Sinus rhythm with frequent Premature ventricular complexes Septal infarct , age undetermined ST & T wave abnormality, consider lateral ischemia Abnormal ECG When compared with ECG of 12-MAY-2023 10:10, Premature ventricular complexes are now Present I personally reviewed the tracing and edited the fellows interpretation Confirmed by fellow MD Anitha, Gordonsilva ([id number]) on 05/13/2023 3:25:30 PM Confirmed by Maxx Best ([id number]) on 05/13/2023 8:30:56 PM MUSE SYSTEM 05/13/2023 9:22 AM EDT 05/13/2023 8:30 PM EDT Alirio Hudson MD ECG ORDERABLES MUSE SYSTEM * (ABNORMAL) Differential, Automated (05/13/2023 1:15 AM EDT) Pathologist [facility] Neutrophils % 88.1 % [facility] Neutr Abs (ANC) 7.62(H) 1.70 - 6.10 x10(3)/mc L [facility] Lymphocytes % 3.1 % [facility] Lymphocytes Abs 0.3(L) 0.9 - 3.2 x10(3)/mc L [facility] Monocytes % 7.9 % [facility] Monocyte Abs 0.7 0.3 - 0.9 x10(3)/mc L [facility] Eosinophils % 0.0 % [facility] Eosinophils Abs 0.0 0.0 - 0.4 x10(3)/mc L [facility] Basophils % 0.1 % [facility] Basophils Abs 0.0 0.0 - 0.1 x10(3)/mc L [facility] Immature Gran % 0.80 % [facility] Comment: Immature granulocytes(IG's)percentage and absolute count will include metamyelocytes, myelocytes, and promyelocytes. Blood smears from CBCs yielding IG's will be scanned manually for concordance. If this scan disagrees with the automated IG or if promyelocytes are noted, a manual differential will be performed. Amanda Gran Abs 0.07(H) 0.00 - 0.04 x10(3)/ L [facility] Blood 05/13/2023 1:15 AM EDT 05/13/2023 1:29 AM EDT Narrative Resulting Agency Comment Spec In Lab Lorri TOBAR HEMATOLOGY ORDERABLE S [facility] [place] [address] * (ABNORMAL) Hemogram (05/13/2023 1:15 AM EDT) WBC 8.6 4.0 - 9.5 x10(3)/[facility] RBC 2.37(L) 4.00 - 5.21 x10(6)/[facility] Hemoglobin 7.8(L) 11.7 - 15.5 g/dL [facility] Hematocrit 22.2(L) 35.7 - 45.8 % [facility] MCV 93.7 82.6 - 94.4 fL [facility] MCH 32.9(H) 27.1 - 32.0 pg [facility] MCHC 35.1(H) 31.7 - 35.0 g/dL [facility] Platelets 130(L) 145 - 357 x10(3)/[facility] RDWSD 41.7 37.0 - 46.0 fL [facility] RDWCV 12.5 11.5 - 14.1 % [facility] MPV 10.2 7.6 - 12.9 fL [facility] nRBC % Auto 0.5 % [facility] nRBC Abs Auto 0.040(H) 0.000 - 0.000 x10(3)/mcL [facility] Blood 05/13/2023 1:15 AM EDT 05/13/2023 1:29 AM EDT Narrative Resulting Agency Comment Spec In Lab Lor[facility] HEMATOLOGY ORDERABLE S Performing Organization Address City/[facility]/ZIP Co de Phone Number [facility] [place] [address] * (ABNORMAL) Hepatic Function Panel (05/13/2023 1:15 AM EDT) Total Protein 5.5(L) 6.1 - 8.0 g/dL [facility] Albumin 3.0(L) 3.2 - 5.2 g/dL [facility] AST 792(H) 0 - 30 unit/L [facility] ALT 903(H) 0 - 30 unit/L [facility] Alk Phos 85 35 - 105 unit/L [facility] Total Bilirubin 0.5 0.2 - 1.3 mg/dL [facility] Bili, Direct 0.3 0.0 - 0.3 mg/dL [facility] Blood 05/13/2023 1:15 AM EDT 05/13/2023 1:29 AM EDT Narrative Resulting Agency Comment Spec In Lab Alirio Hudson MD CHEMISTRY ORDERABLE S Performing Organization Address City/[facility]/ZIP Co de Phone Number [facility] [place] [address] * (ABNORMAL) Basic Metabolic Panel (non-fasting) (05/13/2023 1:15 AM EDT) Glucose Lvl 107 65 - 199 mg/dL [facility] Comment:Diabetes: >=200 mg/d L plus symptoms BUN 82(H) 8 - 18 mg/dL [facility] Creatinine 3.15(H) 0.70 - 1.20 mg/dL [facility] Comment:result rechecked-JSJ Sodium 132(L) 135 - 145 mmol/L [facility] Potassium 3.8 3.5 - 5.0 mmol/L [facility] Comment: Please note: ??Patients with WBC >100,000 may have falsely elevated Potassium levels. ??For accurate Potassium quantification in these patients send serum separator tube (gold top) for subsequent determinations. ??Contact the Clinical Chemistry Laboratory if there are any questions. Chloride 95(L) 98 - 107 mmol/L [facility] CO2 20(L) 22 - 31 mmol/L [facility] Anion Gap 17(H) 5 - 15 mmol/L [facility] Calcium 8.3(L) 8.5 - 10.5 mg/dL [facility] Estimated GFR 16(L) >=60 mL/min/1. 73 m?? [facility] Comment: This patient's estimated GFR [...] Lab Alirio Hudson MD CHEMISTRY ORDERABLE S [facility] [place] [address] * (ABNORMAL) BLOOD GAS 2 ARTERIAL (05/12/2023 3:57 PM EDT) pH Art 7.39 7.35 - 7.45 [facility] pCO2 Art 33(L) 35 - [address] [facility] pO2 Art 101 85 - 104 mmHg [facility] HCO3 Art 19.5(L) 20.0 - 26.0 mmol/L [facility] BE Art -5.5(L) -3.0 - 3.0 mmol/L [facility] Hgb Blood Gas 9.8(L) 11.7 - 15.5 g/dL [facility] O2HB Art 95.2 94.0 - 97.0 % [facility] COHB Art 0.2 % [facility] Comment: Nonsmokers: 0.5-1.5% COHB Smokers: Variable, but usually less than 10% Toxic: 20-30% COHB Lethal: Greater than 60% COHB METHB Art 0.8 <=1.5 % [facility] Na Whole Blood 129(L) 135 - 145 mmol/L [facility] K Whole Blood 3.8 3.5 - 5.0 mmol/L [facility] Comment: Please note: Patients with WBC >100,000 may have falsely elevated Potassium levels. Contact the Clinical Chemistry Laboratory if there are any questions. ICa Whole Blood 1.05(L) 1.15 - 1.33 mmol/L [facility] Comment: Note: ??Total bilirubin higher than 20 mg/dL may lead to falsely low ionized calcium. CL Whole Blood 96(L) 98 - 107 mmol/L [facility] Gluc Whole Bld 178 65 - 199 mg/dL [facility] Comment:Diabetes: >=200 mg/d L plus symptoms. Lactate WB 1.5 0.5 - 2.2 mmol/L [facility] FIO2 Art 40 % [facility] PF Ratio Art 252 [facility] Blood 05/12/2023 3:57 PM EDT 05/12/2023 3:57 PM EDT Alirio Hudson MD CHEMISTRY ORDERABLE S [facility] [place] [address] * (ABNORMAL) Coox2 (05/12/2023 2:25 PM EDT) pO2 Coox 37 mmHg [facility] Hgb Blood Gas 9.5(L) 11.7 - 15.5 g/dL [facility] O2HB Coox 59.9 % [facility] COHB Coox 0.3 % [facility] Comment: Nonsmokers: 0.5-1.5% COHB Smokers: Variable, but usually less than 10% Toxic: 20-30% COHB Lethal: Greater than 60% COHB METHB Coox 0.7 <=1.5 % [facility] Source Coox Mixed Venous [facility] Blood 05/12/2023 2:25 PM EDT 05/12/2023 2:25 PM EDT Alirio Hudson MD CHEMISTRY ORDERABLE S Performing Organization Address City/[facility] Co de Phone Number [facility] [place] [address] * (ABNORMAL) BLOOD GAS 2 ARTERIAL (05/12/2023 2:23 PM EDT) pH Art 7.37 7.35 - 7.45 [facility] pCO2 Art 36 35 - 45 mmHg [facility] pO2 Art 102 85 - 104 mmHg [facility] HCO3 Art 20.4 20.0 - 26.0 mmol/L [facility] BE Art -4.8(L) -3.0 - 3.0 mmol/L [facility] Hgb Blood Gas 12.7 11.7 - 15.5 g/dL [facility] O2HB Art 95.4 94.0 - 97.0 % [facility] COHB Art 0.3 % [facility] Comment: Nonsmokers: 0.5-1.5% COHB Smokers: Variable, but usually less than 10% Toxic: 20-30% COHB Lethal: Greater than 60% COHB METHB Art 0.7 <=1.5 % [facility] Na Whole Blood 129(L) 135 - 145 mmol/L [facility] K Whole Blood 3.7 3.5 - 5.0 mmol/L [facility] Comment: Please note: Patients with WBC >100,000 may have falsely elevated Potassium levels. Contact the Clinical Chemistry Laboratory if there are any questions. ICa Whole Blood 1.05(L) 1.15 - 1.33 mmol/L [facility] Comment: Note: ??Total bilirubin higher than 20 mg/dL may lead to falsely low ionized calcium. CL Whole Blood 95(L) 98 - 107 mmol/L [facility] Gluc Whole Bld 168 65 - 199 mg/dL [facility] Comment:Diabetes: >=200 mg/d L plus symptoms. Lactate WB 1.8 0.5 - 2.2 mmol/L [facility] FIO2 Art 40 % [facility] PF Ratio Art 255 [facility] Blood 05/12/2023 2:23 PM EDT 05/12/2023 2:23 PM EDT Alirio Hudson MD CHEMISTRY ORDERABLE S [facility] [place] [address] * (ABNORMAL) Troponin (05/12/2023 2:05 PM EDT) Troponin-T HS 1,022(H) <=14 ng/L [facility] Comment: This patient's troponin T [...] troponin value can be found in the [facility] Test Catalog Troponin - [facility] Test Catalog Reference: Fourth [place] Definition of Myocardial Infarction. Journal of the [place] [employer] 2018;72:5048-5055 Blood 05/12/2023 2:05 PM EDT 05/12/2023 2:14 PM EDT Narrative Resulting Agency Comment Spec In Lab Alirio Hudson MD CHEMISTRY ORDERABLE S Performing Organization Address City/[facility]/ZIP Co de Phone Number [facility] [place] [address] * (ABNORMAL) Hemoglobin (05/12/2023 2:05 PM EDT) Hemoglobin 8.5(L) 11.7 - 15.5 g/dL [facility] Blood 05/12/2023 2:05 PM EDT 05/12/2023 2:14 PM EDT Narrative Resulting Agency Comment Spec In Lab Alirio Hudson MD HEMATOLOGY ORDERABL ES Performing Organization Address City/[facility]/ZIP Co de Phone Number [facility] [place] [address] * Potassium (05/12/2023 2:05 PM EDT) Potassium 3.9 3.5 - 5.0 mmol/L [facility] Comment: Please note: ??Patients with WBC >100,000 may have falsely elevated Potassium levels. ??For accurate Potassium quantification in these patients send serum separator tube (gold top) for subsequent determinations. ??Contact the Clinical Chemistry Laboratory if there are any questions. Blood 05/12/2023 2:05 PM EDT 05/12/2023 2:14 PM EDT Narrative Resulting Agency Comment Spec In Lab Alirio Hudson MD CHEMISTRY ORDERABLE S [facility] [place] [address] * (ABNORMAL) BLOOD GAS 2 ARTERIAL (05/12/2023 11:05 AM EDT) pH Art 7.34(L) 7.35 - 7.45 [facility] pCO2 Art 42 35 - 45 mmHg [facility] pO2 Art 73(L) 85 - 104 mmHg [facility] HCO3 Art 22.1 20.0 - 26.0 mmol/L [facility] BE Art -3.6(L) -3.0 - 3.0 mmol/L [facility] Hgb Blood Gas 9.3(L) 11.7 - 15.5 g/dL [facility] O2HB Art 89.3(L) 94.0 - 97.0 % [facility] COHB Art 0.2 % [facility] Comment: Nonsmokers: 0.5-1.5% COHB Smokers: Variable, but usually less than 10% Toxic: 20-30% COHB Lethal: Greater than 60% COHB METHB Art 0.9 <=1.5 % [facility] Na Whole Blood 131(L) 135 - 145 mmol/L [facility] K Whole Blood 3.8 3.5 - 5.0 mmol/L [facility] Comment: Please note: Patients with WBC >100,000 may have falsely elevated Potassium levels. Contact the Clinical Chemistry Laboratory if there are any questions. ICa Whole Blood 1.04(L) 1.15 - 1.33 mmol/L [facility] Comment: Note: ??Total bilirubin higher than 20 mg/dL may lead to falsely low ionized calcium. CL Whole Blood 96(L) 98 - 107 mmol/L [facility] Gluc Whole Bld 152 65 - 199 mg/dL [facility] Comment:Diabetes: >=200 mg/d L plus symptoms. Lactate WB 2.8(H) 0.5 - 2.2 mmol/L [facility] FIO2 Art 40 % [facility] PF Ratio Art 182 [facility] Blood 05/12/2023 11:0 5 AM EDT 05/12/2023 11:05 AM EDT Alirio Hudson MD CHEMISTRY ORDERABLE S Performing Organization Address City/State/[facility] Co de Phone Number [facility] [place] [address] * (ABNORMAL) BLOOD GAS 2 ARTERIAL (05/12/2023 10:14 AM EDT) pH Art 7.18(Criti gabrielle) 7.35 - 7.45 [facility] Comment:Noted by instrumentation controls engineer. pCO2 Art 45 35 - 45 mmHg [facility] pO2 Art 186(H) 85 - 104 mmHg [facility] HCO3 Art 16.2(L) 20.0 - 26.0 mmol/L [facility] BE Art -12.2(L) -3.0 - 3.0 mmol/L [facility] Hgb Blood Gas 10.0(L) 11.7 - 15.5 g/dL [facility] O2HB Art 97.0 94.0 - 97.0 % [facility] COHB Art 0.2 % [facility] Comment: Nonsmokers: 0.5-1.5% COHB Smokers: Variable, but usually less than 10% Toxic: 20-30% COHB Lethal: Greater than 60% COHB METHB Art 0.9 <=1.5 % [facility] Na Whole Blood 129(L) 135 - 145 mmol/L [facility] K Whole Blood 3.6 3.5 - 5.0 mmol/L [facility] Comment: Please note: Patients with WBC >100,000 may have falsely elevated Potassium levels. Contact the Clinical Chemistry Laboratory if there are any questions. ICa Whole Blood 1.10(L) 1.15 - 1.33 mmol/L [facility] Comment: Note: ??Total bilirubin higher than 20 mg/dL may lead to falsely low ionized calcium. CL Whole Blood 97(L) 98 - 107 mmol/L [facility] Gluc Whole Bld 161 65 - 199 mg/dL [facility] Comment:Diabetes: >=200 mg/d L plus symptoms. Lactate WB 3.3(H) 0.5 - 2.2 mmol/L [facility] FIO2 Art 100 % [facility] PF Ratio Art 186 [facility] Blood 05/12/2023 10:1 4 AM EDT 05/12/2023 10:14 AM EDT Alirio Hudson MD CHEMISTRY ORDERABLE S [facility] [place] [address] * EKG 12 Lead (05/12/2023 10:10 AM EDT) Ventricular rate 116 BPM MUSE SYSTEM Atrial Rate 116 BPM MUSE SYSTEM P-R Interval 158 ms MUSE SYSTEM QRS Duration 114 ms MUSE SYSTEM Q-T Interval 348 ms MUSE SYSTEM QTC Calculated (Bezet) 483 ms MUSE SYSTEM Calculated P Whipple 37 degrees MUSE SYSTEM Calculated R Whipple 31 degrees MUSE SYSTEM Calculated T Whipple -138 degrees MUSE SYSTEM INTERPRETATION Sinus tachycardia with intermittent aberrant ventricular conduction Possible Left atrial enlargement Incomplete left bundle block Left ventricular hypertrophy with repolarization abnormality ( Sokolow-Orozco , Luc product ) ST & T wave abnormality in Inferolateral leads Abnormal ECG When compared with ECG of 10-MAY-2023 13:16, ST & T wave abnormality is more pronounced in inferolateral leads I personally reviewed the tracing and edited the fellows interpretation Confirmed by fellow MD Anuja, Jim ([id number]) on 05/12/2023 1:04:20 PM Confirmed by MD Villareal Danette ([id number]) on 05/12/2023 9:28:34 PM MUSE SYSTEM 05/12/2023 [...] who have questions please contact the health healthcare account manager that requested your imaging first. ? Electronically signed by: Chyna Johnson MD, [facility] ??([phone]), at 05/12/2023 10:08 AM Narrative 05/12/2023 10:08 AM EDT EXAMINATION: XR CHEST ONE VIEW CLINICAL HISTORY: Post TAVR TECHNIQUE: 1 view of the chest COMPARISON: Chest radiograph from earlier today FINDINGS: Interval placement of endotracheal tube with tip terminating 2 cm above the shira. Interval placement of enteric tube projecting along the expected course of the esophagus and outside the kmyze-uu-oisk. Interval retraction of right IJ approach pulmonary [...] expected course ofthe esophagus and outside the yzxkr-cm-okei. Interval retraction of right IJ approach pulmonary [...] patients who have questions please contactthe health healthcare account manager that requested your imaging first. Electronically signed by: Chyna Johnson MD, [facility]([phone]), at 05/12/2023 10:08 AM Alirio Hudson MD [...] 1955 ? Height: 154 cm ? Account: [id number] Age: 67 yrs ? Weight: 75 kg Gender: Female ?BSA: 1.7 m2 Ordering Physician: RADHA HOLLINS Referring Physician: RADHA HOLLINS Performed By: Dilma Bee RDCS Reason For Study: Guidance for TAVR procedure Exam Location: [facility]. Interpretation Summary PRE TAVR: There is [...] mL/m2. POST TAVR: Normal function of the yoqqb-ry-lgwuc prosthesis. See below for hemodynamic parameters. Slight improvement in left and right ventricular systolic function. LVEF now 20-25%. No pericardial effusion. See report for additional findings. Procedure Limited - 63932. Doppler - 33417. Color Doppler - 98685. Left Ventricle Left ventricle is of normal [...] Date: 307:33 AMBP: 96/63 mmHg Patient Location: [address] : 1955 Height: 154 cm Account: [id number] Age: 67 yrs Weight: 75 kg Gender: Female BSA: 1.7 m2 Ordering Physician: RADHA HOLLINS Referring Physician: RADHA HOLLINS Performed By: Dilma Bee RDCS Reason For Study: Guidance for TAVR procedure Exam Location: [facility]. Interpretation Summary PRE TAVR: There is [...] 28mL/m2. POST TAVR: Normal function of the yircv-au-hdkvl prosthesis. See belowfor hemodynamic parameters. Slight improvement in left and right ventricularsystolic function. LVEF now 20-25%. No pericardial effusion. See report for additional findings. Procedure Limited - 70642. Doppler - 96942. Color Doppler - 82364. Left Ventricle Left ventricle is of normal [...] Modality Other Narrative 05/12/2023 2:37 PM EDT ?[facility] ? Cardiac Catheterization/Intervention Report ? Patient Name: Kirstie, Purnima M. ? Procedure Date: 05/12/2023 ? A #: [id number] ? Primary Physician: Antelmo Sharma ? Case #: [id number] ? File Name: [id number] ? Catheterization Order Number: [id number] ? [facility] ? Final Report [place], [place] ? Patient Name: ? Purnima Thacker ? ID#: ?[id number] ? : ?1955 ? Procedure Date: ? May 12, 2023 ? Case #: ? [id number] ? Room: ? 6 ? Case Physicians: ?Antelmo Sharma M.D. ?Start: ?08:03 ?Alirio Hudson M.D. ?Admission: ??05/08/2023 ?Lynda Mcgowan M.D. ? Discharge: ??05/22/2023 ?Fellow: ? Kristied Adair Tejeda ? Referring Physician: ??Mario Alberto Chin M.D. ? Procedures: ?* Coronary Angiography ?* Left Heart Catheterization ?* Coronary Stent Insertion ?* Transcatheter Aortic Valve Replacement ?* Vascular Closure Device Deployment ?* Temporary Pacemaker Insertion In Lumber Cutter ?* Endotracheal Intubation By Non-Cath Physician ?* [...] was designated as ASA Class IV. The [facility] clinical ?frailty scale is 4: Vulnerable. ? [...] guide. ??A premounted 4.00 x 30 mm S [place] ([place]) was ? deployed with a maximum [...] calculated STS risk score was 30.1%. A civdi-qz-gsxuf ?procedure was performed on the pre-existing bioprosthetic stented ?prosthesis. The priority of the mpexi-tc-cpnpg procedure was Elective. ?The procedure was performed [...] Lai 3 Ultra RESILIA 23 mm THV ([id number]/x=[id number]) transcatheter ?valve was inserted using standard technique. [...] to nor was it given in the ?propagator laborer. ?Recommended anti-platelet/anti-thrombotic regimen: ?Continue aspirin 81 mg daily for indefinitely. ?These recommendations are made at the time of the intervention. Patient ?and provider preferences or a changing clinical situation may require ?modification of this regimen. Consult [facility] Interventional Cardiology for ?questions. ? Conclusions: ?* [...] regimen. ? Comments: ?Successful right transfemoral TAVR Qrfnm-au-Jfniu with a 23 mm Lai 3 ?THV. [...] insertion-coronary, access site angiography, ?temporary pacemaker in propagator laborer, intubation-non cath physician, vascular ?closure device, transthoracic echo ??and TAVR. Dr. Alirio Hudson M.D. ?performed the left heart catheterization, access site angiography, ?temporary pacemaker in propagator laborer, vascular closure device, transthoracic ?echo , TAVR and CPR during cath. Dr. Lynda Mcgowan M.D. performed the ABG, ?anesthesia and intubation-non cath physician. ? Antelmo Sharma M.D. ? Electronically Signed by: Antelmo Sharma M.D. ? Report Finalized: 05/12/2023 ??14:31 ? Report Last Ammended: 07/01/2023 ??11:30 ? Procedure Note Antelmo Sharma MD - 07/01/2023 [facility] Cardiac Catheterization/Intervention Report Patient Name: Purnima Thacker Procedure Date: 05/12/2023 A #: [id number] Primary Physician: Antelmo Sharma Case #: [id number] File Name: [id number] Catheterization Order Number: [id number] [facility] FinalReport [place], [place] Patient Name: Purnima Thacker ID#:[id number] :1955 Procedure Date: May 12, 2023 Case #: [id number] Room: 6 Case Physicians: Antelmo Sharma M.D. Start: 08:03 Alirio Hudson M.D. Admission:05/08/2023 Lynda Mcgowan M.D. Discharge:05/22/2023 Fellow: Rebekah Tejeda M.D. Referring Physician: Mario Alberto Chin M.D. Procedures: * Coronary Angiography * Left Heart Catheterization * Coronary Stent Insertion * Transcatheter Aortic Valve Replacement * Vascular Closure Device Deployment * Temporary Pacemaker Insertion In Lumber Cutter * Endotracheal Intubation By Non-Cath Physician * [...] guide. A premounted 4.00 x 30 mm S [place] ([place]) was deployed with a maximum inflation [...] calculated STS risk score was 30.1%. A zkojy-zr-fblbm procedure was performed on the pre-existing bioprosthetic stented prosthesis. The priority of the yywrl-wc-uixdc procedure wasElective. The procedure was performed under Moderate sedation performed byLynda Mcgowan M.D. (see anesthesia report for additional details). Alirio Hudson M.D. participated in the case (see Cardiac Surgery reportfor additional details). The TAVR sheath was a 14 Fr Corona eSheath Introducer and theaccess site was femoral. Rapid ventricular pacing was performed. An [place]ona Lai 3 Ultra RESILIA 23 mm THV ([id number]/r=[id number])transcatheter valve was inserted using standard technique. The [...] prior to nor was it given inthe propagator laborer. Recommended anti-platelet/anti-thrombotic regimen: Continue aspirin 81 mg daily for indefinitely. These recommendations are made at the time of the intervention.Patient and provider preferences or a changing clinical situation mayrequire modification of this regimen. Consult [facility] Interventional Cardiologyfor questions. Conclusions: * Nonobstructive disease [...] this regimen. Comments: Successful right transfemoral TAVR Izwwh-ak-Alket with a 23 mmSapien 3 THV. We [...] insertion-coronary, access site angiography, temporary pacemaker in propagator laborer, intubation-non cath physician,vascular closure device, transthoracic echo and TAVR. Dr. Alirio Hudson M.D. performed the left heart catheterization, access site angiography, temporary pacemaker in propagator laborer, vascular closure device,transthoracic echo , TAVR and CPR during cath. Dr. Lynda Mcgowan M.D. performed theABG, anesthesia and intubation-non cath physician. Antelmo Sharma M.D. Electronically Signed by: Antelmo Sharma M.D. Report Finalized: 05/12/2023 14:31 Report Last Ammended: 07/01/2023 11:30 Antelmo Sharma MD CARDIAC CATH ORDERAB LES * (ABNORMAL) Point of Care Blood Gas Historical (05/12/2023 8:50 AM EDT) [facility] POC pH 7.20(Crit ical) 7.35 - 7.45 [facility] Comment:Critical value OK, C C Lab. POC PCO2 42 35 - 45 mmHg [facility] POC PO2 260(H) 85 - 104 mmHg [facility] POC Base Excess -11.0(L) -3.0 - 3.0 mmol/L [facility] POC HCO3 16.7(L) 20.0 - 26.0 mmol/L [facility] POC Sodium 129(L) 135 - 145 mmol/L [facility] POC Potassium 3.8 3.5 - 5.0 mmol/L [facility] POC Ionized Ca 1.12(L) 1.15 - 1.33 mmol/L [facility] POC Hematocrit 23.0(L) 34.0 - 45.0 % [facility] POC Calc Hgb 7.8(L) 11.2 - 15.7 g/dL [facility] Comment:The calculation of h emoglobin from hematocrit assumes a normal MCHC. POC Bgas Loc CC Lab [facility] Blood 05/12/2023 8:50 AM EDT 05/13/2023 12:00 PM EDT Alirio Hudson MD CHEMISTRY ORDERABLE S Performing Organization Address City/State/[facility] Co de Phone Number [facility] [place] [address] * (ABNORMAL) Point of Care Blood Gas Historical (05/12/2023 8:10 AM EDT) POC pH 7.27(Crit ical) 7.35 - 7.45 [facility] Comment:Critical value Yamel KRAUSE C Lab. POC PCO2 37 35 - 45 mmHg [facility] POC PO2 29(Critic al) 85 - 104 mmHg [facility] Comment:Critical value JIMI C C Lab. POC Base Excess -10.0(L) -3.0 - 3.0 mmol/L [facility] POC HCO3 16.7(L) 20.0 - 26.0 mmol/L [facility] POC Sodium 123(L) 135 - 145 mmol/L [facility] POC Potassium 4.0 3.5 - 5.0 mmol/L [facility] POC Ionized Ca 1.12(L) 1.15 - 1.33 mmol/L [facility] POC Hematocrit 27.0(L) 34.0 - 45.0 % [facility] POC Calc Hgb 9.2(L) 11.2 - 15.7 g/dL [facility] Comment:The calculation of h emoglobin from hematocrit assumes a normal MCHC. POC Bgas Loc CC Lab [facility] Blood 05/12/2023 8:10 AM EDT 05/13/2023 12:00 PM EDT Alirio Hudson MD CHEMISTRY ORDERABLE S Performing Organization Address City/[facility]/ZIP Co de Phone Number [facility] [place] [address] * (ABNORMAL) Lactate, whole blood, send to lab ([facility]) (05/12/2023 7:00 AM EDT) Lactate WB 2.4(H) 0.5 - 2.2 mmol/L [facility] Blood 05/12/2023 7:00 AM EDT 05/12/2023 7:09 AM EDT Narrative Resulting Agency Comment Spec In Lab Radha Hollins MD CHEMISTRY ORDERABL ES Performing Organization Address [facility]/ZIP Co de Phone Number [facility] [place] [address] * (ABNORMAL) Comprehensive metabolic panel (non-fasting) (05/12/2023 6:00 AM EDT) Glucose Lvl 167 65 - 199 mg/dL [facility] Comment:Diabetes: >=200 mg/d L plus symptoms BUN 67(H) 8 - 18 mg/dL [facility] Creatinine 2.01(H) 0.70 - 1.20 mg/dL [facility] Sodium 131(L) 135 - 145 mmol/L [facility] Potassium 4.3 3.5 - 5.0 mmol/L [facility] Comment: Please note: ??Patients with WBC >100,000 may have falsely elevated Potassium levels. ??For accurate Potassium quantification in these patients send serum separator tube (gold top) for subsequent determinations. ??Contact the Clinical Chemistry Laboratory if there are any questions. Chloride 97(L) 98 - 107 mmol/L [facility] CO2 14(L) 22 - 31 mmol/L [facility] Anion Gap 20(H) 5 - 15 mmol/L [facility] Calcium 8.6 8.5 - 10.5 mg/dL [facility] Total Protein 6.3 6.1 - 8.0 g/dL [facility] Albumin 3.5 3.2 - 5.2 g/dL [facility] AST 1,435(H) 0 - 30 unit/L [facility] ALT 1,174(H) 0 - 30 unit/L [facility] Alk Phos 100 35 - 105 unit/L [facility] Total Bilirubin 0.9 0.2 - 1.3 mg/dL [facility] Estimated GFR 27(L) >=60 mL/min/1. 73 m?? [facility] Comment: This patient's estimated GFR [...] Lab Radha Hollins MD CHEMISTRY ORDERABL ES [facility] [place] [address] * (ABNORMAL) Coox2 (05/12/2023 5:08 AM EDT) pO2 Coox 24 mmHg [facility] Hgb Blood Gas 10.4(L) 11.7 - 15.5 g/dL [facility] O2HB Coox 30.7 % [facility] COHB Coox 0.3 % [facility] Comment: Nonsmokers: 0.5-1.5% COHB Smokers: Variable, but usually less than 10% Toxic: 20-30% COHB Lethal: Greater than 60% COHB METHB Coox 0.8 <=1.5 % [facility] Source Coox Mixed Venous [facility] Blood 05/12/2023 5:08 AM EDT 05/12/2023 5:08 AM EDT Radha Hollins MD CHEMISTRY ORDERABL ES Performing Organization Address [facility] de Phone Number [facility] [place] [address] * (ABNORMAL) Coox2 (05/12/2023 3:21 AM EDT) pO2 Coox 25 mmHg [facility] Hgb Blood Gas 10.8(L) 11.7 - 15.5 g/dL [facility] O2HB Coox 32.7 % [facility] COHB Coox 0.3 % [facility] Comment: Nonsmokers: 0.5-1.5% COHB Smokers: Variable, but usually less than 10% Toxic: 20-30% COHB Lethal: Greater than 60% COHB METHB Coox 0.7 <=1.5 % [facility] Source Coox Mixed Venous [facility] Blood 05/12/2023 3:21 AM EDT 05/12/2023 3:21 AM EDT Radha Hollins MD CHEMISTRY ORDERABL ES Performing Organization Address City/[facility] Co de Phone Number [facility] [place] [address] * (ABNORMAL) BLOOD GAS 2 ARTERIAL (05/12/2023 3:18 AM EDT) pH Art 7.34(L) 7.35 - 7.45 [facility] pCO2 Art 30(L) 35 - 45 mmHg [facility] pO2 Art 72(L) 85 - 104 mmHg [facility] HCO3 Art 16.0(L) 20.0 - 26.0 mmol/L [facility] BE Art -9.8(L) -3.0 - 3.0 mmol/L [facility] Hgb Blood Gas 11.0(L) 11.7 - 15.5 g/dL [facility] O2HB Art 89.8(L) 94.0 - 97.0 % [facility] COHB Art 0.3 % [facility] Comment: Nonsmokers: 0.5-1.5% COHB Smokers: Variable, but usually less than 10% Toxic: 20-30% COHB Lethal: Greater than 60% COHB METHB Art 0.7 <=1.5 % [facility] Na Whole Blood 131(L) 135 - 145 mmol/L [facility] K Whole Blood 4.2 3.5 - 5.0 mmol/L [facility] Comment: Please note: Patients with WBC >100,000 may have falsely elevated Potassium levels. Contact the Clinical Chemistry Laboratory if there are any questions. ICa Whole Blood 1.12(L) 1.15 - 1.33 mmol/L [facility] Comment: Note: ??Total bilirubin higher than 20 mg/dL may lead to falsely low ionized calcium. CL Whole Blood 100 98 - 107 mmol/L [facility] Gluc Whole Bld 160 65 - 199 mg/dL [facility] Comment:Diabetes: >=200 mg/d L plus symptoms. Lactate WB 2.7(H) 0.5 - 2.2 mmol/L [facility] Flow Art 5.0 LPM [facility] Blood 05/12/2023 3:18 AM EDT 05/12/2023 3:18 AM EDT Radha Hollins MD CHEMISTRY ORDERABL ES Performing Organization Address [facility] de Phone Number [facility] [place] [address] * (ABNORMAL) Coox2 (05/12/2023 1:14 AM EDT) pO2 Coox 28 mmHg [facility] Hgb Blood Gas 10.9(L) 11.7 - 15.5 g/dL [facility] O2HB Coox 37.3 % [facility] COHB Coox 0.3 % [facility] Comment: Nonsmokers: 0.5-1.5% COHB Smokers: Variable, but usually less than 10% Toxic: 20-30% COHB Lethal: Greater than 60% COHB METHB Coox 0.5 <=1.5 % [facility] Source Coox Mixed Venous [facility] Blood 05/12/2023 1:14 AM EDT 05/12/2023 1:14 AM EDT Radha Hollins MD CHEMISTRY ORDERABL ES Performing Organization Address [facility] Co de Phone Number [facility] [place] [address] * (ABNORMAL) BLOOD GAS 2 ARTERIAL (05/12/2023 1:06 AM EDT) pH Art 7.34(L) 7.35 - 7.45 [facility] pCO2 Art 30(L) 35 - 45 mmHg [facility] pO2 Art 81(L) 85 - 104 mmHg [facility] HCO3 Art 15.7(L) 20.0 - 26.0 mmol/L [facility] BE Art -10.1(L) -3.0 - 3.0 mmol/L [facility] Hgb Blood Gas 11.0(L) 11.7 - 15.5 g/dL [facility] O2HB Art 92.3(L) 94.0 - 97.0 % [facility] COHB Art 0.2 % [facility] Comment: Nonsmokers: 0.5-1.5% COHB Smokers: Variable, but usually less than 10% Toxic: 20-30% COHB Lethal: Greater than 60% COHB METHB Art 0.6 <=1.5 % [facility] Na Whole Blood 131(L) 135 - 145 mmol/L [facility] K Whole Blood 4.2 3.5 - 5.0 mmol/L [facility] Comment: Please note: Patients with WBC >100,000 may have falsely elevated Potassium levels. Contact the Clinical Chemistry Laboratory if there are any questions. ICa Whole Blood 1.13(L) 1.15 - 1.33 mmol/L [facility] Comment: Note: ??Total bilirubin higher than 20 mg/dL may lead to falsely low ionized calcium. CL Whole Blood 99 98 - 107 mmol/L [facility] Gluc Whole Bld 132 65 - 199 mg/dL [facility] Comment:Diabetes: >=200 mg/d L plus symptoms. Lactate WB 2.7(H) 0.5 - 2.2 mmol/L [facility] Flow Art 5.0 LPM [facility] Blood 05/12/2023 1:06 AM EDT 05/12/2023 1:06 AM EDT Radha Hollins MD CHEMISTRY ORDERABL ES [facility] [place] [address] * (ABNORMAL) Differential, Automated (05/12/2023 1:05 AM EDT) Neutrophils % 83.3 % [facility] Neutr Abs (ANC) 7.49(H) 1.70 - 6.10 x10(3)/[facility] Lymphocytes % 7.1 % [facility] Lymphocytes Abs 0.6(L) 0.9 - 3.2 x10(3)/[facility] Monocytes % 8.9 % [facility] Monocyte Abs 0.8 0.3 - 0.9 x10(3)/[facility] Eosinophils % 0.0 % [facility] Eosinophils Abs 0.0 0.0 - 0.4 x10(3)/[facility] Basophils % 0.1 % [facility] Basophils Abs 0.0 0.0 - 0.1 x10(3)/[facility] Immature Gran % 0.60 % [facility] Comment: Immature granulocytes(IG's)percentage and absolute count will include metamyelocytes, myelocytes, and promyelocytes. Blood smears from CBCs yielding IG's will be scanned manually for concordance. If this scan disagrees with the automated IG or if promyelocytes are noted, a manual differential will be performed. Amanda Gran Abs 0.05(H) 0.00 - 0.04 x10(3)/[facility] Blood 05/12/2023 1:05 AM EDT 05/12/2023 1:15 AM EDT Narrative Resulting Agency Comment Spec In Lab Gianni Fletcher MD HEMATOLOGY ORDERABLE S [facility] [place] [address] * (ABNORMAL) Hemogram (05/12/2023 1:05 AM EDT) WBC 9.0 4.0 - 9.5 x10(3)/[facility] RBC 3.01(L) 4.00 - 5.21 x10(6)/[facility] Hemoglobin 9.8(L) 11.7 - 15.5 g/dL [facility] Hematocrit 28.7(L) 35.7 - 45.8 % [facility] MCV 95.3(H) 82.6 - 94.4 fL [facility] MCH 32.6(H) 27.1 - 32.0 pg [facility] MCHC 34.1 31.7 - 35.0 g/dL [facility] Platelets 186 145 - 357 x10(3)/[facility] RDWSD 43.7 37.0 - 46.0 [facility] RDWCV 12.7 11.5 - 14.1 % [facility] MPV 10.3 7.6 - 12.9 [facility] nRBC % Auto 0.0 % [facility] nRBC Abs Auto 0.000 0.000 - 0.000 x10(3)/[facility] Blood 05/12/2023 1:05 AM EDT 05/12/2023 1:15 AM EDT Narrative Resulting Agency Comment Spec In Lab Gianni Fletcher MD HEMATOLOGY ORDERABLE S [facility] [place] [address] * (ABNORMAL) Comprehensive metabolic panel (non-fasting) (05/12/2023 1:05 AM EDT) Glucose Lvl 141 65 - 199 mg/dL [facility] Comment:Diabetes: >=200 mg/d L plus symptoms BUN 63(H) 8 - 18 mg/dL [facility] Creatinine 1.86(H) 0.70 - 1.20 mg/dL [facility] Sodium 131(L) 135 - 145 mmol/L [facility] Potassium 4.4 3.5 - 5.0 mmol/L [facility] Comment: Please note: ??Patients with WBC >100,000 may have falsely elevated Potassium levels. ??For accurate Potassium quantification in these patients send serum separator tube (gold top) for subsequent determinations. ??Contact the Clinical Chemistry Laboratory if there are any questions. Chloride 96(L) 98 - 107 mmol/L [facility] CO2 14(L) 22 - 31 mmol/L [facility] Anion Gap 21(H) 5 - 15 mmol/L [facility] Calcium 9.0 8.5 - 10.5 mg/dL [facility] Total Protein 6.6 6.1 - 8.0 g/dL [facility] Albumin 3.9 3.2 - 5.2 g/dL [facility] AST 1,227(H) 0 - 30 unit/L [facility] ALT 1,097(H) 0 - 30 unit/L [facility] Alk Phos 108(H) 35 - 105 unit/L [facility] Total Bilirubin 1.0 0.2 - 1.3 mg/dL [facility] Estimated GFR 29(L) >=60 mL/min/1. 73 m?? [facility] Comment: This patient's estimated GFR [...] Lab Radha Hollins MD CHEMISTRY ORDERABL ES [facility] [place] [address] * XR Chest One View (05/12/2023 1:00 [...] who have questions please contact the health healthcare account manager that requested your imaging first. ? [...] congestion, interstitial/alveolar edema,and medium-sized bilateral pleural effusions. IZe, discussed the above findings with Dr. Klaudia Malagon on 05/12/2023 at 3:15 AM and verified understanding. Thank you for letting us participate in the care of this patient. If youare a health care provider and have any questions regarding this report,please contact the number below. For patients who have questions please contactthe health healthcare account manager that requested your imaging first. Radha Hollins MD IMG DX ORDERABLES * (ABNORMAL) Coox2 (05/12/2023 12:30 AM EDT) pO2 Coox 22 mmHg [facility] Hgb Blood Gas 10.9(L) 11.7 - 15.5 g/dL [facility] O2HB Coox 25.1 % [facility] COHB Coox 0.3 % [facility] Comment: Nonsmokers: 0.5-1.5% COHB Smokers: Variable, but usually less than 10% Toxic: 20-30% COHB Lethal: Greater than 60% COHB METHB Coox 1.4 <=1.5 % [facility] Source Coox Mixed Venous [facility] Blood 05/12/2023 12:3 0 AM EDT 05/12/2023 12:30 AM EDT Radha Hollins MD CHEMISTRY ORDERABL ES [facility] [place] [address] * XR Chest One View (05/11/2023 11:45 [...] who have questions please contact the health healthcare account manager that requested your imaging first. ? [...] patients who have questions please contactthe health healthcare account manager that requested your imaging first. Radha Hollins MD IMG DX ORDERABLES * (ABNORMAL) Lactate, whole blood, send to lab ([facility]) (05/11/2023 7:40 PM EDT) Lactate WB 4.8(Critic al) 0.5 - 2.2 mmol/L [facility] Comment:Called by: IMM, Read back by: Magdalena Baires, Date/Time:05/11/23 19:54. Blood 05/11/2023 7:40 PM EDT 05/11/2023 7:49 PM EDT Narrative Resulting Agency Comment Spec In Lab Radha Hollins MD CHEMISTRY ORDERABL ES [facility] [place] [address] * Urine culture (05/11/2023 7:22 PM EDT) [facility] Urine Culture 50,000-99,000 cfu/ml Normal mucosal herman Susceptibilit y testing not routinely performed for Coagulase Negative Staphylococcu s species and other Gram Positive organisms from urine. [facility] Clean Catch Urine 05/11/2023 7:22 PM EDT 05/11/2023 8:50 PM EDT Narrative Resulting Agency Comment Spec In Lab Brody Kaplan FORGE OPERATOR MICROBIOLOGY - GENE RAL ORDERABLES Performing Organization Address City/[facility]/ZIP Co de Phone Number [facility] [place] [address] * (ABNORMAL) Urinalysis Microscopic Exam (05/11/2023 7:22 PM EDT) [facility] RBC UA 2 0 - 4 /HPF [facility] WBC UA >100(H) 0 - 5 /HPF [facility] Bacteria UA Occasional (A) None /HPF [facility] Squam Epith UA 5(H) <=4 /HPF [facility] Hyaline Cast UA 3(H) 0 - 2 /LPF [facility] Clean Catch Urine 05/11/2023 7:22 PM EDT 05/11/2023 7:31 PM EDT Narrative Resulting Agency Comment Spec In Lab Brody Kaplan FORGE OPERATOR URINE ORDERABLES [facility] [place] [address] * (ABNORMAL) Urinalysis with reflex Culture (05/11/2023 7:22 PM EDT) [facility] Glucose UA Negative Negative mg/dL [facility] Protein UA Trace(A) Negative mg/dL [facility] Bilirubin UA Negative Negative mg/dL [facility] Comment: Clinical correlation required for positive Urine Bilirubin results as false positive may occur with some drugs and drug related products. If a false positive is suspected a serum total bilirubin should be considered if clinically indicated. Urobilinogen UA Normal Normal mg/dL [facility] pH UA 5.0 5.0 - 8.0 [facility] Blood UA Trace(A) Negative mg/dL [facility] Ketones UA Negative Negative mg/dL [facility] Nitrite UA Negative Negative [facility] Leukocytes UA Moderate(A) Negative mcL [facility] Appearance UA Cloudy(A) Clear [facility] Spec Lisle UA >=1.030(A) 1.005 - 1.030 [facility] Color UA Yellow Yellow [facility] Culture Reflexed Yes [facility] Clean Catch Urine 05/11/2023 7:22 PM EDT 05/11/2023 7:31 PM EDT Narrative Resulting Agency Comment Spec In Lab Brody Enriquezwilder OSBORN URINE ORDERABLES [facility] [place] [address] * (ABNORMAL) pro-Brain Natriuretic Peptide (05/11/2023 7:11 PM EDT) ProBNP >35,000(H) <=124 pg/mL [facility] Blood 05/11/2023 7:11 PM EDT 05/11/2023 7:26 PM EDT Narrative Resulting Agency Comment Spec In Lab Radha Hollins MD CHEMISTRY ORDERABL ES Performing Organization Address City/[facility]/ZIP Co de Phone Number [facility] [place] [address] * (ABNORMAL) Lactate, whole blood, send to lab ([facility]) (05/11/2023 2:47 PM EDT) Lactate WB 2.9(H) 0.5 - 2.2 mmol/L [facility] Blood 05/11/2023 2:47 PM EDT 05/11/2023 2:53 PM EDT Narrative Resulting Agency Comment Spec In Lab Juan uLis Gonzalez MD CHEMISTRY ORDERABLES [facility] [place] [address] * (ABNORMAL) CT Angiogram Abdomen & Pelvis [...] who have questions please contact the health healthcare account manager that requested your imaging first. ? [...] who have questions please contact the health healthcare account manager that requested your imaging first. ? Electronically signed by: Cullen Narayanan MD, [facility] ([phone]), at 05/11/2023 4:37 PM Narrative 05/11/2023 4:37 [...] 610 mm2 Circumference: 88 mm Calcification: Mild [id number] height: Left: 6.2 mm Right: 5.8 mm THORACIC AORTA Description: Normal course and caliber. ??Mild diffuse atherosclerotic changes. No acute aortopathy noted. Plant Protection Officer dimensions: Aortic root: 27.6 mm Max ascending aorta: 30.5 mm x 27.7 mm Suggested fluoroscopic angulation based on line extending through the nadirs of the three sinuses of Valsalva, set equidistant: ?? [place]ER ??9 degrees; cranial 7 degrees MITRAL: Mitral [...] 610 mm2 Circumference: 88 mm Calcification: Mild Zpkbdov-mw-lxeytech height: Left: 6.2 mm Right: 5.8 mm THORACIC AORTA Description: Normal course and caliber. Mild diffuse atheroscleroticchanges. No acute aortopathy noted. Plant Protection Officer dimensions: Aortic root: 27.6 mm Max ascending aorta: 30.5 mm x 27.7 mm Suggested fluoroscopic angulation based on line extending through thenadirs of the three sinuses of Valsalva, set equidistant: [place] 9 degrees; cranial 7 degrees MITRAL: Mitral [...] patients who have questions please contactthe health healthcare account manager that requested your imaging first. Electronically signed by: Cullen Narayanan MD, [facility]([phone]), at 05/11/2023 4:37 PM Antelmo Sharma MD IMG CT ORDERABLES * (ABNORMAL) Lactate, whole blood, send to lab ([facility]) (05/11/2023 9:29 AM EDT) Pathologist [facility] Lactate WB 3.1(H) 0.5 - 2.2 mmol/L [facility] Blood 05/11/2023 9:29 AM EDT 05/11/2023 9:38 AM EDT Narrative Resulting Agency Comment Spec In Lab Juan Luis Gonzalez MD CHEMISTRY ORDERABLES [facility] [place] [address] * (ABNORMAL) Differential, Automated (05/11/2023 4:42 AM EDT) [facility] Neutrophils % 78.1 % [facility] Neutr Abs (ANC) 5.46 1.70 - 6.10 x10(3)/mc L [facility] Lymphocytes % 10.6 % [facility] Lymphocytes Abs 0.7(L) 0.9 - 3.2 x10(3)/mc L [facility] Monocytes % 9.6 % [facility] Monocyte Abs 0.7 0.3 - 0.9 x10(3)/mc L [facility] Eosinophils % 0.0 % [facility] Eosinophils Abs 0.0 0.0 - 0.4 x10(3)/mc L [facility] Basophils % 0.4 % [facility] Basophils Abs 0.0 0.0 - 0.1 x10(3)/mc L [facility] Immature Gran % 1.30 % [facility] Comment: Immature granulocytes(IG's)percentage and absolute count will include metamyelocytes, myelocytes, and promyelocytes. Blood smears from CBCs yielding IG's will be scanned manually for concordance. If this scan disagrees with the automated IG or if promyelocytes are noted, a manual differential will be performed. Amanda Gran Abs 0.09(H) 0.00 - 0.04 x10(3)/mc L [facility] Blood 05/11/2023 4:42 AM EDT 05/11/2023 4:49 AM EDT Narrative Resulting Agency Comment Spec In Lab Klaudia Reid MD HEMATOLOGY OR DERABLES [facility] [place] [address] * (ABNORMAL) Hemogram (05/11/2023 4:42 AM EDT) WBC 7.0 4.0 - 9.5 x10(3)/[facility] RBC 3.44(L) 4.00 - 5.21 x10(6)/[facility] Hemoglobin 11.1(L) 11.7 - 15.5 g/dL [facility] Hematocrit 32.7(L) 35.7 - 45.8 % [facility] MCV 95.1(H) 82.6 - 94.4 fL [facility] MCH 32.3(H) 27.1 - 32.0 pg [facility] MCHC 33.9 31.7 - 35.0 g/dL [facility] Platelets 165 145 - 357 x10(3)/[facility] RDWSD 43.1 37.0 - 46.0 fL [facility] RDWCV 12.7 11.5 - 14.1 % [facility] MPV 10.1 7.6 - 12.9 fL [facility] nRBC % Auto 0.0 % [facility] nRBC Abs Auto 0.000 0.000 - 0.000 x10(3)/mcL [facility] Blood 05/11/2023 4:42 AM EDT 05/11/2023 4:49 AM EDT Narrative Resulting Agency Comment Spec In Lab Klaudia Reid MD HEMATOLOGY OR DERABLES Performing Organization Address [facility] Co de Phone Number [facility] [place] [address] * Heparin (unfractionated) Level (05/11/2023 4:42 AM EDT) Heparin UFH Level 0.46 IU/mL [facility] Comment: Heparin (anti-Xa) levels should [...] HEMATOLOGY ORDERAB LES Performing Organization Address [facility]/ZIP Co de Phone Number [facility] [place] [address] * (ABNORMAL) Comprehensive metabolic panel (non-fasting) (05/11/2023 4:42 AM EDT) Glucose Lvl 143 65 - 199 mg/dL [facility] Comment:Diabetes: >=200 mg/d L plus symptoms BUN 42(H) 8 - 18 mg/dL [facility] Creatinine 1.24(H) 0.70 - 1.20 mg/dL [facility] Sodium 134(L) 135 - 145 mmol/L [facility] Potassium 4.6 3.5 - 5.0 mmol/L [facility] Comment: Please note: ??Patients with WBC >100,000 may have falsely elevated Potassium levels. ??For accurate Potassium quantification in these patients send serum separator tube (gold top) for subsequent determinations. ??Contact the Clinical Chemistry Laboratory if there are any questions. Chloride 99 98 - 107 mmol/L [facility] CO2 14(L) 22 - 31 mmol/L [facility] Anion Gap 21(H) 5 - 15 mmol/L [facility] Calcium 9.6 8.5 - 10.5 mg/dL [facility] Total Protein 7.2 6.1 - 8.0 g/dL [facility] Albumin 3.7 3.2 - 5.2 g/dL [facility] AST 144(H) 0 - 30 unit/L [facility] Comment:result rechecked-ssc ALT 130(H) 0 - 30 unit/L [facility] Comment:result rechecked-ssc Alk Phos 72 35 - 105 unit/L [facility] Total Bilirubin 0.8 0.2 - 1.3 mg/dL [facility] Estimated GFR 48(L) >=60 mL/min/1. 73 m?? [facility] Comment: This patient's estimated GFR [...] MD CHEMISTRY ORDERABL ES Performing Organization Address City/[facility]/ZIP Co de Phone Number [facility] [place] [address] * EKG 12 Lead (05/10/2023 1:16 PM EDT) Ventricular rate 118 BPM MUSE SYSTEM Atrial Rate 118 BPM MUSE SYSTEM P-R Interval 152 ms MUSE SYSTEM QRS Duration 104 ms MUSE SYSTEM Q-T Interval 316 ms MUSE SYSTEM QTC Calculated (Bezet) 442 ms MUSE SYSTEM Calculated P Whipple 29 degrees MUSE SYSTEM Calculated R Whipple 18 degrees MUSE SYSTEM Calculated T Whipple -173 degrees MUSE SYSTEM INTERPRETATION Sinus tachycardia [...] depressed in Anterior leads Confirmed by MD Mono, Eleni ([id number]) on 05/10/2023 8:47:46 PM MUSE SYSTEM 05/10/2023 1:16 PM EDT 05/10/2023 8:47 PM EDT Juan Luis Gonzalez MD ECG ORDERABLES Performing Organization Address City/[facility]/ZIP Co de Phone Number MUSE SYSTEM * Lactate, whole blood, send to lab ([facility] (05/10/2023 11:52 AM EDT) Lactate WB 1.8 0.5 - 2.2 mmol/L [facility] Blood 05/10/2023 11:5 2 AM EDT 05/10/2023 12:13 PM EDT Narrative Resulting Agency Comment Spec In Lab Juan Luis Gonzalez MD CHEMISTRY ORDERABLES [facility] [place] [address] * XR Chest One View (05/10/2023 11:16 [...] who have questions please contact the health healthcare account manager that requested your imaging first. ? Electronically signed by: ALIX RUVALCABA MD, [facility] ([phone]), at 05/10/2023 1:25 PM Narrative 05/10/2023 1:25 [...] patients who have questions please contactthe health healthcare account manager that requested your imaging first. Electronically signed by: ALIX RUVALCABA MD, [facility]([phone]), at 05/10/2023 1:25 PM Juan Luis Gonzalez MD IMG DX ORDERABLES * EKG 12 Lead (05/10/2023 7:59 AM EDT) Ventricular rate 115 BPM MUSE SYSTEM Atrial Rate 115 BPM MUSE SYSTEM P-R Interval 142 ms MUSE SYSTEM QRS Duration 102 ms MUSE SYSTEM Q-T Interval 322 ms MUSE SYSTEM QTC Calculated (Bezet) 445 ms MUSE SYSTEM Calculated P Whipple 36 degrees MUSE SYSTEM Calculated R Whipple 28 degrees MUSE SYSTEM Calculated T Whipple -119 degrees MUSE SYSTEM INTERPRETATION Sinus tachycardia with frequent Premature ventricular complexes and Fusion complexes ST & T wave abnormality, consider lateral ischemia Abnormal ECG When compared with ECG of 08-MAY-2023 15:51, No significant change was found I personally reviewed the tracing and edited the fellows interpretation Confirmed by fellow MD [facility] ([id number] on 05/11/2023 6:19:54 AM Confirmed by MD Tram, [place] ([id number]) on 05/11/2023 3:18:56 PM MUSE SYSTEM 05/10/2023 7:59 AM EDT 05/11/2023 3:18 PM EDT Radha Hollins MD ECG ORDERABLES MUSE SYSTEM * (ABNORMAL) Differential, Automated (05/10/2023 2:28 AM EDT) Neutrophils % 77.1 % [facility] Neutr Abs (ANC) 4.01 1.70 - 6.10 x10(3)/[facility] Lymphocytes % 14.0 % [facility] Lymphocytes Abs 0.7(L) 0.9 - 3.2 x10(3)/[facility] Monocytes % 7.7 % [facility] Monocyte Abs 0.4 0.3 - 0.9 x10(3)/[facility] Eosinophils % 0.4 % [facility] Eosinophils Abs 0.0 0.0 - 0.4 x10(3)/[facility] Basophils % 0.4 % [facility] Basophils Abs 0.0 0.0 - 0.1 x10(3)/[facility] Immature Gran % 0.40 % [facility] Comment: Immature granulocytes(IG's)percentage and absolute count will include metamyelocytes, myelocytes, and promyelocytes. Blood smears from CBCs yielding IG's will be scanned manually for concordance. If this scan disagrees with the automated IG or if promyelocytes are noted, a manual differential will be performed. Amanda Gran Abs 0.02 0.00 - 0.04 x10(3)/[facility] Blood 05/10/2023 2:28 AM EDT 05/10/2023 2:57 AM EDT Narrative Resulting Agency Comment Spec In Lab Klaudia Reid MD HEMATOLOGY OR DERABLES [facility] [place] [address] * (ABNORMAL) Hemogram (05/10/2023 2:28 AM EDT) WBC 5.2 4.0 - 9.5 x10(3)/[facility] RBC 3.11(L) 4.00 - 5.21 x10(6)/[facility] Hemoglobin 10.2(L) 11.7 - 15.5 g/dL [facility] Hematocrit 30.2(L) 35.7 - 45.8 % [facility] MCV 97.1(H) 82.6 - 94.4 [facility] MCH 32.8(H) 27.1 - 32.0 pg [facility] MCHC 33.8 31.7 - 35.0 g/dL [facility] Platelets 151 145 - 357 x10(3)/[facility] RDWSD 44.9 37.0 - 46.0 [facility] RDWCV 12.8 11.5 - 14.1 % [facility] MPV 9.8 7.6 - 12.9 [facility] nRBC % Auto 0.0 % [facility] nRBC Abs Auto 0.000 0.000 - 0.000 x10(3)/[facility] Blood 05/10/2023 2:28 AM EDT 05/10/2023 2:57 AM EDT Narrative Resulting Agency Comment Spec In Lab Klaudia Reid MD HEMATOLOGY OR DERABLES [facility] [place] [address] * (ABNORMAL) Comprehensive metabolic panel (non-fasting) (05/10/2023 2:28 AM EDT) Glucose Lvl 100 65 - 199 mg/dL [facility] Comment:Diabetes: >=200 mg/d L plus symptoms BUN 30(H) 8 - 18 mg/dL [facility] Creatinine 0.90 0.70 - 1.20 mg/dL [facility] Sodium 134(L) 135 - 145 mmol/L [facility] Potassium 4.1 3.5 - 5.0 mmol/L [facility] Comment: Please note: ??Patients with WBC >100,000 may have falsely elevated Potassium levels. ??For accurate Potassium quantification in these patients send serum separator tube (gold top) for subsequent determinations. ??Contact the Clinical Chemistry Laboratory if there are any questions. Chloride 102 98 - 107 mmol/L [facility] CO2 20(L) 22 - 31 mmol/L [facility] Anion Gap 12 5 - 15 mmol/L [facility] Calcium 9.3 8.5 - 10.5 mg/dL [facility] Total Protein 6.4 6.1 - 8.0 g/dL [facility] Albumin 3.7 3.2 - 5.2 g/dL [facility] AST 24 0 - 30 unit/L [facility] ALT 14 0 - 30 unit/L [facility] Alk Phos 70 35 - 105 unit/L [facility] Total Bilirubin 0.5 0.2 - 1.3 mg/dL [facility] Estimated GFR 70 >=60 mL/min/1. 73 m?? [facility] Comment: This patient's estimated GFR [...] Lab Radha Hollins MD CHEMISTRY ORDERABL ES [facility] [place] [address] * Heparin (unfractionated) Level (05/10/2023 2:28 AM EDT) [facility] Heparin UFH Level 0.37 IU/mL [facility] Comment: Heparin (anti-Xa) levels should [...] Lab Radha Hollins MD HEMATOLOGY ORDERAB LES [facility] [place] [address] * (ABNORMAL) Differential, Automated (05/09/2023 4:00 AM EDT) [facility] Neutrophils % 81.7 % [facility] Neutr Abs (ANC) 5.26 1.70 - 6.10 x10(3)/mc L [facility] Lymphocytes % 10.7 % [facility] Lymphocytes Abs 0.7(L) 0.9 - 3.2 x10(3)/mc L [facility] Monocytes % 6.5 % [facility] Monocyte Abs 0.4 0.3 - 0.9 x10(3)/mc L [facility] Eosinophils % 0.5 % [facility] Eosinophils Abs 0.0 0.0 - 0.4 x10(3)/mc L [facility] Basophils % 0.3 % [facility] Basophils Abs 0.0 0.0 - 0.1 x10(3)/mc L [facility] Immature Gran % 0.30 % [facility] Comment: Immature granulocytes(IG's)percentage and absolute count will include metamyelocytes, myelocytes, and promyelocytes. Blood smears from CBCs yielding IG's will be scanned manually for concordance. If this scan disagrees with the automated IG or if promyelocytes are noted, a manual differential will be performed. Amanda Gran Abs 0.02 0.00 - 0.04 x10(3)/mc L [facility] Blood 05/09/2023 4:00 AM EDT 05/09/2023 4:19 AM EDT Narrative Resulting Agency Comment Spec In Lab Klaudia Reid MD HEMATOLOGY OR DERABLES [facility] [place] [address] * (ABNORMAL) Hemogram (05/09/2023 4:00 AM EDT) WBC 6.4 4.0 - 9.5 x10(3)/[facility] RBC 3.15(L) 4.00 - 5.21 x10(6)/[facility] Hemoglobin 10.2(L) 11.7 - 15.5 g/dL [facility] Hematocrit 30.3(L) 35.7 - 45.8 % [facility] MCV 96.2(H) 82.6 - 94.4 fL [facility] MCH 32.4(H) 27.1 - 32.0 pg [facility] MCHC 33.7 31.7 - 35.0 g/dL [facility] Platelets 151 145 - 357 x10(3)/[facility] RDWSD 44.7 37.0 - 46.0 fL [facility] RDWCV 12.8 11.5 - 14.1 % [facility] MPV 9.4 7.6 - 12.9 fL [facility] nRBC % Auto 0.0 % [facility] nRBC Abs Auto 0.000 0.000 - 0.000 x10(3)/mcL [facility] Blood 05/09/2023 4:00 AM EDT 05/09/2023 4:19 AM EDT Narrative Resulting Agency Comment Spec In Lab Klaudia Reid MD HEMATOLOGY OR DERABLES Performing Organization Address [facility] [place] [address] * Heparin (unfractionated) Level (05/09/2023 4:00 AM EDT) Heparin UFH Level 0.47 IU/mL [facility] Comment: Heparin (anti-Xa) levels should [...] HEMATOLOGY ORDERAB LES Performing Organization Address [facility]/ZIP Co de Phone Number [facility] [place] [address] * (ABNORMAL) Comprehensive metabolic panel (non-fasting) (05/09/2023 4:00 AM EDT) Glucose Lvl 108 65 - 199 mg/dL [facility] Comment:Diabetes: >=200 mg/d L plus symptoms BUN 31(H) 8 - 18 mg/dL [facility] Creatinine 1.03 0.70 - 1.20 mg/dL [facility] Sodium 137 135 - 145 mmol/L [facility] Potassium 4.4 3.5 - 5.0 mmol/L [facility] Comment: Please note: ??Patients with WBC >100,000 may have falsely elevated Potassium levels. ??For accurate Potassium quantification in these patients send serum separator tube (gold top) for subsequent determinations. ??Contact the Clinical Chemistry Laboratory if there are any questions. Chloride 102 98 - 107 mmol/L [facility] CO2 20(L) 22 - 31 mmol/L [facility] Anion Gap 15 5 - 15 mmol/L [facility] Calcium 9.3 8.5 - 10.5 mg/dL [facility] Total Protein 6.6 6.1 - 8.0 g/dL [facility] Albumin 3.8 3.2 - 5.2 g/dL [facility] AST 32(H) 0 - 30 unit/L [facility] ALT 18 0 - 30 unit/L [facility] Alk Phos 78 35 - 105 unit/L [facility] Total Bilirubin 0.5 0.2 - 1.3 mg/dL [facility] Estimated GFR 60 >=60 mL/min/1. 73 m?? [facility] Comment: This patient's estimated GFR [...] CHEMISTRY ORDERABL ES Performing Organization Address [facility] Co de Phone Number [facility] [place] [address] * (ABNORMAL) pro-Brain Natriuretic Peptide (05/08/2023 4:00 PM EDT) ProBNP 25,503(H) <=124 pg/mL [facility] Blood Venous Draw / Unknown 05/08/2023 4:00 PM EDT 05/08/2023 4:25 PM EDT Narrative Resulting Agency Comment Spec In Lab Juan Luis Gonzalez MD CHEMISTRY ORDERABLES Performing Organization Address [facility] Co de Phone Number [facility] [place] [address] * Magnesium (05/08/2023 4:00 PM EDT) Magnesium 0.82 0.69 - 1.07 mmol/L [facility] Blood 05/08/2023 4:00 PM EDT 05/08/2023 4:06 PM EDT Narrative Resulting Agency Comment Spec In Lab Enrique Chua MD CHEMISTRY ORDERABLES Performing Organization Address [facility] Co de Phone Number [facility] [place] [address] * Potassium (05/08/2023 4:00 PM EDT) Potassium 3.9 3.5 - 5.0 mmol/L [facility] Comment: Please note: ??Patients with [...] MD CHEMISTRY ORDERABL ES Performing Organization Address [facility] de Phone Number [facility] [place] [address] * Heparin (unfractionated) Level (05/08/2023 4:00 PM EDT) Heparin UFH Level 0.43 IU/mL [facility] Comment: Heparin (anti-Xa) levels should [...] MD HEMATOLOGY ORDERAB LES Performing Organization Address [facility] Co de Phone Number [facility] [place] [address] * EKG 12 Lead (05/08/2023 3:51 PM EDT) Ventricular rate 98 BPM MUSE SYSTEM Atrial Rate 98 BPM MUSE SYSTEM P-R Interval 150 ms MUSE SYSTEM QRS Duration 102 ms MUSE SYSTEM Q-T Interval 358 ms MUSE SYSTEM QTC Calculated (Bezet) 457 ms MUSE SYSTEM Calculated P Whipple 38 degrees MUSE SYSTEM Calculated R Whipple 48 degrees MUSE SYSTEM Calculated T Whipple -112 degrees MUSE SYSTEM INTERPRETATION Sinus rhythm with frequent and consecutive Premature ventricular and fusion complexes Septal infarct , age undetermined ST & T wave abnormality, consider anterolateral ischemia Abnormal ECG When compared with ECG of 09-NOV-2022 11:17, T wave inversion now evident in Anterolateral leads Confirmed by MD Harshil, Enrique Bell ([id number]) on 05/10/2023 8:11:46 AM MUSE SYSTEM 05/08/2023 3:51 PM EDT 05/10/2023 8:11 AM EDT Radha Hollins MD ECG ORDERABLES MUSE SYSTEM * (ABNORMAL) Differential, Automated (05/08/2023 11:38 AM EDT) Neutrophils % 71.3 % [facility] Neutr Abs (ANC) 2.91 1.70 - 6.10 x10(3)/[facility] Lymphocytes % 19.1 % [facility] Lymphocytes Abs 0.8(L) 0.9 - 3.2 x10(3)/[facility] Monocytes % 9.0 % [facility] Monocyte Abs 0.4 0.3 - 0.9 x10(3)/[facility] Eosinophils % 0.2 % [facility] Eosinophils Abs 0.0 0.0 - 0.4 x10(3)/[facility] Basophils % 0.2 % [facility] Basophils Abs 0.0 0.0 - 0.1 x10(3)/[facility] Immature Gran % 0.20 % [facility] Comment: Immature granulocytes(IG's)percentage and absolute count will include metamyelocytes, myelocytes, and promyelocytes. Blood smears from CBCs yielding IG's will be scanned manually for concordance. If this scan disagrees with the automated IG or if promyelocytes are noted, a manual differential will be performed. Amanda Gran Abs 0.01 0.00 - 0.04 x10(3)/ L [facility] Blood 05/08/2023 11:3 8 AM EDT 05/08/2023 11:44 AM EDT Narrative Resulting Agency Comment Spec In Lab Lincoln Sal MD HEMATOLOGY ORDERA BLES Performing Organization Address City/[facility] Co de Phone Number [facility] [place] [address] * (ABNORMAL) Hemogram (05/08/2023 11:38 AM EDT) WBC 4.1 4.0 - 9.5 x10(3)/[facility] RBC 3.05(L) 4.00 - 5.21 x10(6)/[facility] Hemoglobin 10.2(L) 11.7 - 15.5 g/dL [facility] Hematocrit 29.6(L) 35.7 - 45.8 % [facility] MCV 97.0(H) 82.6 - 94.4 fL [facility] MCH 33.4(H) 27.1 - 32.0 pg [facility] MCHC 34.5 31.7 - 35.0 g/dL [facility] Platelets 136(L) 145 - 357 x10(3)/[facility] RDWSD 44.3 37.0 - 46.0 [facility] RDWCV 12.6 11.5 - 14.1 % [facility] MPV 9.4 7.6 - 12.9 [facility] nRBC % Auto 0.0 % [facility] nRBC Abs Auto 0.000 0.000 - 0.000 x10(3)/[facility] Blood 05/08/2023 11:3 8 AM EDT 05/08/2023 11:44 AM EDT Narrative Resulting Agency Comment Spec In Lab Lincoln Sal MD HEMATOLOGY ORDERA BLES Performing Organization Address City/[facility] de Phone Number [facility] [place] [address] * TSH (05/08/2023 11:38 AM EDT) TSH 1.27 0.27 - 4.20 mcIU/mL [facility] Comment: Reference Interval (mcIU/mL): Females: ??First Trimester: 0.23-3.88 ??Second Trimester: 0.22-3.90 ??Third Trimester: 0.44-4.66 Blood 05/08/2023 11:3 8 AM EDT 05/08/2023 11:44 AM EDT Narrative Resulting Agency Comment Spec In Lab Enrique Chua MD CHEMISTRY ORDERABLES Performing Organization Address [facility] de Phone Number [facility] [place] [address] * (ABNORMAL) Phosphorus (05/08/2023 11:38 AM EDT) Phosphorus 4.7(H) 2.5 - 4.5 mg/dL [facility] Blood 05/08/2023 11:3 8 AM EDT 05/08/2023 11:44 AM EDT Narrative Resulting Agency Comment Spec In Lab Enrique Chua MD CHEMISTRY ORDERABLES Performing Organization Address [facility] de Phone Number [facility] [place] [address] * Magnesium (05/08/2023 11:38 AM EDT) Magnesium 0.76 0.69 - 1.07 mmol/L [facility] Blood 05/08/2023 11:3 8 AM EDT 05/08/2023 11:44 AM EDT Narrative Resulting Agency Comment Spec In Lab Enrique Chua MD CHEMISTRY ORDERABLES Performing Organization Address [facility] Co de Phone Number [facility] [place] [address] * (ABNORMAL) Basic Metabolic Panel (non-fasting) (05/08/2023 11:38 AM EDT) Glucose Lvl 97 65 - 199 mg/dL [facility] Comment:Diabetes: >=200 mg/d L plus symptoms BUN 27(H) 8 - 18 mg/dL [facility] Creatinine 1.02 0.70 - 1.20 mg/dL [facility] Sodium 139 135 - 145 mmol/L [facility] Potassium 4.2 3.5 - 5.0 mmol/L [facility] Comment: Please note: ??Patients with WBC >100,000 may have falsely elevated Potassium levels. ??For accurate Potassium quantification in these patients send serum separator tube (gold top) for subsequent determinations. ??Contact the Clinical Chemistry Laboratory if there are any questions. Chloride 105 98 - 107 mmol/L [facility] CO2 20(L) 22 - 31 mmol/L [facility] Anion Gap 14 5 - 15 mmol/L [facility] Calcium 9.4 8.5 - 10.5 mg/dL [facility] Estimated GFR 60 >=60 mL/min/1. 73 m?? [facility] Comment: This patient's estimated GFR [...] Enrique Chua MD CHEMISTRY ORDERABLES [facility] [place] [address] * ECHO COMPLETE (05/08/2023 11:02 AM EDT) EF 25 [facility] SYSTEM Anatomical Region Laterality Modality Cardiac Other 05/08/2023 10:0 3 AM EDT Narrative 05/08/2023 11:51 AM EDT ? Echocardiogram Report Name: LASHELL THACKERDARWIN Mejias ?Study Date: 05/08/2023 10:03 AMBP: 92/64 mmHg ? Patient Location: [facility]^CV29^A : 1955 ? Height: 155 cm ? Account: [id number] Age: 67 yrs ? Weight: 78 kg Gender: Female ?BSA: 1.8 m2 Ordering Physician: ENRIQUE CHUA Referring Physician: MARIO ALBERTO CHIN Performed By: CHUCKIE Canchola Reason For Study: SAVR Stenosis Exam Location: [facility]. Interpretation Summary -Left ventricle is severely [...] worsening stenosis. Mitral regurgitation is similar. Procedure Complete-67421. Satisfactory quality. There is normal sinus rhythm. [...] Study Date: 0:03 AMBP: 92/64 mmHg Patient Location:[facility]^CV29^A : 1955 Height: 155 cm Account: [id number] Age: 67 yrs Weight: 78 kg Gender: Female BSA: 1.8 m2 Ordering Physician: ENRIQUE CHUA Referring Physician: MARIO ALBERTO CHIN Performed By: CHUCKIE Canchola Reason For Study: SAVR Stenosis Exam Location: [facility]. Interpretation Summary -Left ventricle is severely [...] direct comparison to a prior study dated 2/14/23, there has been asubstantial decrement in LVEF (previously 55%). 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 Mitral regurgitation is similar. Procedure Complete-[id number]. Satisfactory quality. There is normal sinus rhythm. 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] Oral, DAILY, 1 dose, First dose on 05/10/23 at 1045, Routine Given 05/10/2023 10:25 AM EDT 20 mg furosemide (Lasix) tablet 20 mg 20 mg, Oral, DAILY, First dose on Wed05/19/23 at 1715, Until Discontinued, Routine Given 05/22/2023 8:27 AM EDT 20 mg Given 05/21/2023 8:32 AM EDT 20 mg Given 05/20/2023 8:36 AM EDT 20 mg furosemide (Lasix) tablet 40 mg 40 mg, Oral, DAILY, First dose on 05/10/23 at 1715, Until Discontinued, Routine Given 05/11/2023 [...] Intravenous, EVERY 8 HOURS PRN, Starting on Wed05/11/23 at 1933, Until Wed05/12/23 at 0944, Nausea [...] PRN, Starting on 05/08/23 at 2009, Until Wed05/12/23 at 0944, hypokalemia, Administer for serum potassium [...] 20 mEq, Oral, ONCE, 1 dose, On Wed05/18/23 at 0730, 20 mEq tablet may be [...] PRN, Starting on 05/16/23 at 1130, Until Wed05/17/23 at 0831, hypokalemia, Administer for serum potassium [...] Until Marquita 05/13/23 at 0826, Titrate to sedation level of [...] Nebulization, ONCE PRN, 1 dose, Starting on 05/10/23 at 2213, Until Wed05/10/23 at 2247, Cough, [...] Intravenous, 2 TIMES DAILY, First dose on 05/12/23 at 1030, Until Discontinued, Routine Given 05/22/2023 [...] at 0831, Side port TKO rate, per [facility] flush protocol Rate/Dose Verify 05/13/2023 6:00 AM EDT 10 mL/hr 10 mL/hr Rate/Dose Verify 05/13/2023 4:00 AM EDT 10 mL/hr 10 mL/h r Rate/Dose Verify 05/13/2023 2:00 AM EDT 10 mL/hr 10 mL/h r sodium chloride 0.9% infusion 10-30 mL/hr, Intravenous, DAILY PRN, Starting on Wed05/12/23 at 0944, Until Wed05/17/23 at 0831, Side port TKO rate, per [facility] flush protocol. Rate/Dose Verify 05/17/2023 8:00 [...] 0051, Until Wed05/12/23 at 0119, Nery Zepeda: cabinet override vasopressin (Vasostrict) (0.2 units/mL) 100 mL [...] Until Marquita 05/13/23 at 0826, Titrate to keep systolic [...] on Wed05/17/23 at 1700, Until Discontinued, Routine 1738 (Given - Provider: Gabino Calhoun RN) 1619 (Given - Provider: Kia Gallego, VALDO) furosemide (Lasix) tablet 20 mg 20 mg, Oral, DAILY, First dose on Wed05/19/23 at 1715, Until Discontinued, Routine 0836 (Given - Provider: Gabino Calhoun, VALDO) 0832 (Given - Provider: Kia Gallego, VALDO) 0827 (Given - Provider: Kia Glalego, VALDO) lidocaine (Lidoderm) 5% patch 1 patch [...] on Wed05/17/23 at 2100, Until Discontinued, Routine 0836 (Given - Provider: Gabino Calhoun RN)2054 (Given - Provider: Favian Mckeon RN) 0832 (Given - Provider: Kia Gallego, VALDO)2012 (Given - Provider: Favian Mckeon, VALDO) 0827 (Given - Provider: Kia Gallego, VALDO) pantoprazole (Protonix) injection 40 mg(Linked Group 2) [...] RN) 0827 (See Alternative - Provider: Kia Gallego, VALDO) pantoprazole EC (Protonix) tablet 40 mg(Linked Group 2) 40 mg, Oral, DAILY, First dose on Wed05/12/23 at 1030, Until Discontinued, DO NOT CRUSH OR OPEN, Routine 0836 (Given - Provider: Gabino Calhoun RN) 0832 (Given - Provider: Kia Gallego, RN) 0827 (Given - Provider: Kia Gallego, [...] tablet., Routine 0615 (Given - Provider: Favian Mckeon, VALDO) senna-docusate (Pericolace) 8.6-50 mg per tablet 2 [...] patient on 81 mg of aspirin? Yes 835 (Given - Provider: Gabino Calhoun RN)2053 (Given - Provider: Favian Mckeon, RN) 0832 (Given - Provider: Kia Gallego, RN)2012 (Given - Provider: Favian Mckeon, RN) 08 (Given - Provider: Kia Gallego, RN) PRN [...] 6 mg, Oral, NIGHTLY PRN, Starting on 05/12/23 at 0944, Until 05/22/23 at 1246, insomnia, [...] post-op day 1 in the AM Give ME if unable to take PO, Routine Group [...] Routine documented in this encounter Care Teams Maintenance Services Dispatcher Relationship Specialty Start Date End Date Magdalena Acosta MD [address] [place] [address] PCP - General Family Medicine 02/05/23 documented as of this encounter
--- OUTSIDE RECORDS SUMMARY | 2024-02-24 13:59 | XMS_ITS | Encounter Summary ---
Author Organization [facility] Address [facility] [place] [address] Care Team Providers Care Pure Culture Operator Name Role Phone Magdalena Acosta MD Primary Care Provider [phone] Encounter Details Date Type Department Care Team [...] 11:30 AM EST Office [place] [address] Magdalena Peralta MD [facility] [place] [address] 03/01/2025 4:15 PM EDT Office Visit Dermatology at [address] [phone] Marek Bonilla MD [address] [place] [address] [place] [address] documented as of this encounter Visit Diagnoses Not on filedocumented in this encounter Care Teams Pure Culture Operator Relationship Specialty Start Date End Date Magdalena Acosta MD [address] [place] [address] PCP - General Family Medicine 02/05/23 documented as of this encounter
--- OUTSIDE RECORDS SUMMARY | 2024-02-24 13:59 | XMS_ITS | Encounter Summary ---
[place] [address] Care Team Providers Care Open Pit Quarry Supervisor Name Role Phone Magdalena Acosta MD Primary Care Provider [phone] Reason for Visit * Auth/Cert (Routine) Specialty Diagnoses / Procedures Referred By Contac t Referred To Contact Diagnoses Symptomatic severe aortic stenosis with low ejection fraction NSTEMI, CHF Haris Chua MD [facility] [place] [address] [facility] Referral ID Status Reason Start Date Expiration Date Visits Re quested Visits Authorized [id number] 1 1 Encounter Details Date Type Department Care Team (Late st Contact Info) Description 05/12/2023 7:35 AM EDT Anesthesia [place] [address] Lynda Mcgowan MD [facility] [place] [address] Alie Park MD [facility] [address] Anesthesia Record Procedure Summary Procedure Name Responsible [...] cephalic vein (lateral side of arm), left; [id number] catheter system; Anatomical Landmarks; US Not Used; [...] RN LDA Cath/EP Sheath 05/12/23; 0733; 14 Croatian (Fr); Right; Femoral; Arterial 05/12/23 0733 by Guerda Bender, RN 05/12/23 0830 by Guerda Bender RN LDA Cath/EP Sheath 05/12/23; 0734; 6 Croatian (Fr); Right; Femoral; Venous 05/12/23 0734 by Guerda Bender RN 05/12/23 0817 by Guerda Bender RN LDA Cath/EP Sheath 05/12/23; 0734; 7 Croatian (Fr); Left; Femoral; Arterial 05/12/23 0734 by Guerda Bender, RN 05/12/23 0837 by Guerda Bender RN LDA Cath/EP Sheath 05/12/23; 0734; 6 Croatian (Fr); Left; Femoral; Venous 05/12/23 0734 by [...] Procedure Summary Date: 05/12/23 Room / Location: [facility] Anesthesia Start: 734 [...] All Anesthesia Providers: Anesthesiologist: Lynda Mcgowan MD Dog Show Judge: Nico Graham MD Vitals Value Taken Time [...] 05/08/2023 ??? Mild coronary artery disease by [facility] 11/09/2022 05/08/2023 ??? Heart failure with reduced [...] IMG S&I N/A 11/09/2022 CORONARY ANGIOGRAPHY; W [facility],POSSIBLE PCI (WRVU 5.6) performed by Nitesh Escboedo MD at [facility] ??? PRO AORTOPLAS FOR SUPRAVALV STEN N/A 09/21/2016 @AORTOPLASTY FOR SUPRAVALVULAR STENOSIS (WRVU 29.33) performed by Alirio Esparza MD at [facility] MAIN OR ??? PRO REPLACEMENT PROSTHETIC AORTIC VALVE OPEN W CARDIOPULMONARY BYPASS HOMOGRF/STENT N/A 09/21/2016 @REPLACE AORTIC VALVE, OPEN, W\CPB, W\PROSTHETIC VALVE (WRVU 41.32) performed by Alirio Esparza MD at [facility] Social History Tobacco [...] 3 general, with a(n) intravenous induction Add-on [id number] TAVR. In cardiogenic shock. Has arterial line, [...] EST Office [place] [address] Magdalena Peralta MD [facility] [address] 03/01/2025 4:15 PM EDT Office Visit Dermatology at [place] [address] [place] [phone] Marek Bonilla MD [address] [place] [address] documented as of this encounter Visit Diagnoses [...] mL/hr documented in this encounter Care Teams Open Pit Quarry Supervisor Relationship Specialty Start Date End Date Magdalena Acosta MD [address] [place] [address] PCP - General Family Medicine 02/05/23 documented as of this encounter
--- OUTSIDE RECORDS SUMMARY | 2024-02-24 14:00 | XMS_ITS | Encounter Summary ---
[facility] Organization [facility] [place] [address] Care Team Providers Care Field Coordinator Name Role Phone Magdalena Acosta MD Primary Care Provider [phone] Reason for Visit * Auth/Cert (Routine) Specialty Diagnoses / Procedures Referred By Contac t Referred To Contact Diagnoses Symptomatic severe aortic stenosis with low ejection fraction NSTEMI, CHF Enrique Chua MD [facility] [place] [address] [facility] Referral ID Status Reason Start Date Expiration Date Visits Re quested Visits Authorized [id number] 1 1 Encounter Details Date Type Department Care Team (Late st Contact Info) Description 05/12/2023 2:50 PM EDT - 05/12/2023 3:50 PM [place] [address] Antelmo Sharma MD [facility] [place] [address] CARDIAC CATHETERIZATION Social History Tobacco Use Types [...] Patient Age: 67 y.o. Birthdate: 1955 Language: Japanese Race: White Ethnicity: Not nor Admit Date: 05/08/2023 Discharge Date: 05/22/2023 Attending Physician: Alirio Hudson MD Follow-up Recommendations for Providers: Please continue routine management of cardiovascular risk factors including blood pressure, lipids,glucose, etc. Please note any medication changes. Patient to follow up with PCP, Magdalena Acosta MD, or Primary Director Sports, Avis Mejia MD, in ~ 7-10 days. Patient to follow up with Program Advocate, Dr. Antelmo Sharma, in 2 weeks with an EKG, Echo, CBC, and CMP. Patient to follow up with Nephrology, their office to arrange. Txwy-Cpylro-gy interval: After initial 30 day follow-up appointment , all TAVR patients will follow-up again in one year with an echo. Inpatient Provider Contact Information: 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 Secondary Diagnoses: Active Hospital Problems Diagnosis S/P TAVR (transcatheter aortic valve replacement) Cardiogenic shock Symptomatic severe aortic stenosis with low ejection fraction Mild coronary artery disease by [facility] 11/09/2022 Heart failure with reduced ejection [...] Tube Placement Right 05/18/2023 Laure Ricks PA [facility] INTERVENTIONL RAD PRG CATH PLMT LEFT HEART CATH & ARTS W/INJ & ANGIO IMG S&I N/A 11/09/2022 CORONARY ANGIOGRAPHY; W [facility],POSSIBLE PCI (WRVU 5.6) performed by Mario Alberto Escobedo MD at [facility] CATH LABS PRG COMBINED RIGHT & LEFT HEART CATH W/INJ L VENTRICULOGRAPHY, IMG S&I N/A 05/12/2023 COMBINED RIGHT & LEFT HEART CATH,INC INJ FOR L VENTRICULOGRAPHY (WRVU 5.99) performed by Antelmo Sharma MD at [facility] CATH LABS PRO AORTOPLAS FOR SUPRAVALV STEN N/A 09/21/2016 @AORTOPLASTY FOR SUPRAVALVULAR STENOSIS (WRVU 29.33) performed by Alirio Hudson MD at [facility] MAIN OR PRO REPLACE AORTIC VALVE (TAVR/FEDERICO)PERC FEMORAL ARTERY APPROACH 05/12/2023 @TRANSCATHETER AORTIC VALVE REPLACEMENT (TAVR), PERCUTANEOUS FEMORAL (WRVU 22.47) performed by Alirio Hudson MD at [facility] CATH LABS PRO REPLACEMENT PROSTHETIC AORTIC VALVE OPEN W CARDIOPULMONARY BYPASS HOMOGRF/STENT N/A 09/21/2016 @REPLACE AORTIC VALVE, OPEN, W\CPB, W\PROSTHETIC VALVE (WRVU 41.32) performed by Alirio Hudson MD at [facility] MAIN OR Prior To Admission Medications [...] Major Procedures/Operations: 05/12/23: Successful right transfemoral TAVR Eqzch-lj-Oppwa with a 23 mm Lai 3 THV. Left coronary protection with left main MINNA. Hospital Course: #Severe prosthetic s/p valve in valve TF TAVR #Low coronary heights s/p left main stent for coronary protection #Type 2 NSTEMI, present on arrival, resolved #Acute decompensated HFrEF #Cardiogenic shock #EVANS / Cardiorenal syndrome Purnima Thacker was admitted to [facility] on 05/08/2023 via the Cardiology Service [...] TAVR and she was brought to the section laborer the following morning where Drs. Alirio [...] if you have questions. Please call your Program Advocate's office if you have any discharge or drainage from your procedural sites. Your Program Advocate, Dr. Antelmo Sharma and/or the Slip Laster may be reached at . Antibiotic prophylaxis: You will need to take antibiotics prior to many invasive tests and treatments, such as dental cleaning, which should be done every 6 months. Your primary care physician or your dentist can prescribe this medication. Please refer to the card with the [place] [employer] Guidelines for more information. You have been provided with a copy of this card. Please refer to the [place] [employer] Guidelines for more information. Good [...] friends, go to a movie, go to congregational, etc. Heavy activities: No hunting, skiing, jogging, [...] should resume a low fat, low cholesterol, [place] [employer] Diet Driving: No restrictions. Shower/Bath: You may shower daily. No baths, soaking, or swimming for the first week. Wound care: Wash the sites daily with soap and rinse well, pat dry. Assess for any signs of infection such as increased redness, pain, warmth or drainage. Please call your quality management coordinator's office if you have any discharge or drainage from your procedural sites. If there is a lot of swelling, apply mamta wraps during the day and remove at bedtime. Elevate your legs when you are sitting. Home oxygen therapy: N/A Follow up appointments: Please schedule a follow-up appointment with your PCP, Magdalena Acosta MD, or Primary Director Sports in ~ 7-10 days. You have a follow-up appointment with your Program Advocate, Dr. Antelmo Sharma, in 2 weeks with an EKG, Echo, and labs prior to your appointment. You will need follow-up with Nephrology, their office will arrange. Ajlu-Zuybvw-fa interval: After initial 30 day follow-up appointment , all TAVR patients will follow-up again in one year with an echo. Cardiac Rehabilitation: Purnima Thacker was seen today regarding participation in the outpatient Phase 2 Cardiac Rehabilitation at [facility]. The patient agrees to a referral to this program. The referral will be sent at discharge and the patient should be contacted by the Program within 1- 2 weeks from discharge. Future Appointments and Orders Future Appointments and Orders Future Appointments Provider Department Dept Phone 07/29/2023 11:00 AM Magdalena Peralta MD Rheumatology at [facility] Arrive at: [facility] [phone] 02/11/2024 2:00 PM Marek Bonilla MD Dermatology at [facility] Arrive at: [facility] [address] [phone] Future Orders Complete By Expires Type and Screen Future Surgery, [facility] SAME DAY PROGRAM ONLY) [EEC8193 Custom] 05/11/2023 Process Instructions: This test is intended ONLY for patients with upcoming surgery for testing prior to the day of surgery obtained through the same day program (4V or SDP). For ALL OTHER PATIENTS, order a Type and Screen (FQU559) This order includes the physician order for an ABO Recheck if requested by the Blood Bank. Scheduling Instructions: Comments: Questions: Date of surgery: CBC (with Diff) [YBO254 Custom] 06/05/2023 12/05/2023 Process Instructions: INCLUDES: WBC, RBC, Hgb, Hct, Platelets, RBC Indices and Differential Scheduling Instructions: Comments: Questions: Comprehensive metabolic panel (non-fasting) [LAB17 Custom] 06/05/2023 08/20/2023 Process Instructions: INCLUDES: Calcium, T Protein, Albumin, AST, ALT, Alk Phos, T Bili, BUN, Creat, GFR, Glucose, Lytes. Scheduling Instructions: Comments: Questions: Echocardiogram Transthoracic [53746 CPT(R)] 06/05/2023 12/05/2023 Process Instructions: Scheduling Instructions: Questions: Where will study be performed?: [facility] Clinics Does the patient have Congenital Heart Disease?: Does patient require sedation?: GA rationale: EKG 12 Lead [86713 CPT(R)] 06/05/2023 12/05/2023 Process Instructions: Scheduling Instructions: Questions: Which location will this be performed?: [place] Is a rhythm strip needed?: No [facility] Devices [EQ161 Custom] As directed Process Instructions: Scheduling Instructions: Questions: Device Needed: WALKER (E0143) Patient Height (cm): 154.9 cm (5' 0.98) Patient Weight: 75.4 kg (166 lb 3.2 oz) Diagnosis: Unsteady gait when walking Referral to Cardiac Rehab [SIC432 Custom] As directed Process Instructions: If no progress note charted, please enter Clinical details in comments. Scheduling Instructions: Questions: My question or request is: s/p TAVR. Cardiac rehab at [facility]. Referral to Home Health [REF34 Custom] As directed Process Instructions: If no progress note charted, please enter Clinical details in comments. Scheduling Instructions: Comments: DOCUMENTATION FOR VNA SERVICES PATIENT'S LOCATION: uPrnima Thacker [address] [place] [address] [phone] (home) High Court Justice's Name: Irineo and brother Raymond In discussion with the attending physician, it is certified that this patient is under his/her careand that MD, or an OTORHINOLARYNGOLOGIST, FRETTED STRING INSTRUMENT REPAIRER, or PA who is working directly with him/her, had a qsvh-ba-yoqs encounter that meets the physician olts-du-jdmr encounter requirements with this patient on 05/22/2023. [...] for managing ADLs. HOME HEALTH CARE AGENCY: [facility]. [address] [facility] [address] PHONE: [phone] FAX: [phone] Start of care: Ideally 24-48 hours after [...] PCP: Magdalena Acosta MD [address] [facility] [phone] All VNA agencies which cover the area of patient's residence have been reviewed, either verbally joao writing, and patient has chosen the home health care agency noted. Questions: Disciplines Requested: Physical Therapy Occupational Therapy Discharge References/Attachments None Arrangements for VNA/home care: As above. (delete if no VNA) Signed: EKATERINA NAVARRETE [facility] Section of Cardiac Surgery Date: 05/22/2023 CC: Magdalena Acosta MD DelaneyMario Alberto maxwell MD [address] [place] [address] [place] [address] documented in this encounter Discharge Instructions * Patient Instructions* Vinod Juárez PA - 05/22/2023 9:32 AM EDT TAVR Discharge Instructions: Call your doctor if: You have a fever of greater than 101 degrees, shaking chills, if you develop redness or drainage from your procedure sites, or if you have questions. Please call your Program Advocate's office if you have any discharge or drainage from your procedural sites. Your Program Advocate, Dr. Antelmo Sharma and/or the Slip Laster may be reached at . Antibiotic prophylaxis: You will need to take antibiotics prior to many invasive tests and treatments, such as dental cleaning, which should be done every 6 months. Your primary care physician or your dentist can prescribe this medication. Please refer to the card with the [place] [employer] Guidelines for more information. You have been provided with a copy of this card. Please refer to the [place] [employer] Guidelines for more information. Good [...] friends, go to a movie, go to congregational, etc. Heavy activities: No hunting, skiing, jogging, [...] should resume a low fat, low cholesterol, [place] [employer] Diet Driving: No restrictions. Shower/Bath: You may shower daily. No baths, soaking, or swimming for the first week. Wound care: Wash the sites daily with soap and rinse well, pat dry. Assess for any signs of infection such as increased redness, pain, warmth or drainage. Please call your quality management coordinator's office if you have any discharge or drainage from your procedural sites. If there is a lot of swelling, apply mamta wraps during the day and remove at bedtime. Elevate your legs when you are sitting. Home oxygen therapy: N/A Follow up appointments: Please schedule a follow-up appointment with your PCP, Magdalena Acosta MD, or Primary Director Sports in ~ 7-10 days. You have a follow-up appointment with your Program Advocate, Dr. Antelmo Sharma, in 2 weeks with an EKG, Echo, and labs prior to your appointment. You will need follow-up with Nephrology, their office will arrange. Aslk-Itgvjb-vn interval: After initial 30 day follow-up appointment , all TAVR patients will follow-up again in one year with an echo. Cardiac Rehabilitation: Purnima Gallegol was seen today regarding participation in the outpatient Phase 2 Cardiac Rehabilitation at [facility]. The patient agrees to a [...] ins ( tef) Haven Ba, PT Pager: [phone] Physical Therapy Inpatient Rehabilitation Department * Nico [...] 0600 and on the weekends please page [phone]. * Jory Paniagua - 05/20/2023 3:52 PM [...] vomiting Last Bowel Movement: 05/20/23 Jory Paniagua Genomics Scientist * Tong Mike, OT - 05/20/2023 3:16 [...] Tube Placement Right 05/18/2023 Laure Ricks PA [facility] INTERVENTIONL RAD PRG CATH PLMT LEFT HEART CATH & ARTS W/INJ & ANGIO IMG S&I N/A 11/09/2022 CORONARY ANGIOGRAPHY; W [facility],POSSIBLE PCI (WRVU 5.6) performed by Mario Alberto Escobedo MD at [facility] CATH LABS PRG COMBINED RIGHT & LEFT HEART CATH W/INJ L VENTRICULOGRAPHY, IMG S&I N/A 05/12/2023 COMBINED RIGHT & LEFT HEART CATH,INC INJ FOR L VENTRICULOGRAPHY (WRVU 5.99) performed by Antelmo Sharma MD at [facility] CATH LABS PRO AORTOPLAS FOR SUPRAVALV STEN N/A 09/21/2016 @AORTOPLASTY FOR SUPRAVALVULAR STENOSIS (WRVU 29.33) performed by Alirio Hudson MD at [facility] MAIN OR PRO REPLACE AORTIC VALVE (TAVR/FEDERICO)PERC FEMORAL ARTERY APPROACH 05/12/2023 @TRANSCATHETER AORTIC VALVE REPLACEMENT (TAVR), PERCUTANEOUS FEMORAL (WRVU 22.47) performed by Alirio Hudson MD at [facility] CATH LABS PRO REPLACEMENT PROSTHETIC AORTIC VALVE OPEN W CARDIOPULMONARY BYPASS HOMOGRF/STENT N/A 09/21/2016 @REPLACE AORTIC VALVE, OPEN, W\CPB, W\PROSTHETIC VALVE (WRVU 41.32) performed by Alirio Hudson MD at [facility] MAIN OR Social History: Patient lives alone. Home Setup: Pt lives on one level with tub shower and three steps to enter. DME: none used HOME VISIT FIELD CARE MANAGER Baseline ADL/Mobility: Independent with ADLs and [...] WFL Vision & Perception: corrective lenses time study statistician Communication: WFL Range of motion, strength, coordination: [...] Discharge Disposition (OT): swing bed rehabilitation facility, snf facility(vs home with support for IADLs) Other [...] Discharge planning. Total Minutes, Occupational Therapy: 28 ([id number]) OT Evaluation Code Rationale: Diagnosis & Pertinent Co-Morbidities affecting Plan of Care: see PMHx Occupational Profile & Client History: Brief Expanded Extensive x Assessment of Occupational Performance: 1-3 performance deficits 3-5 performance deficits x 5 + performance deficits Clinical Decision Making: Low Moderate High x Clinical decision making of moderate complexity using standardized patient assessment instrument and measurable assessment of functional outcome. Pager: [phone] TONG MIKE OT 05/20/2023 Occupational Therapy Rehabilitation Department * Noreen Huang PA - 05/20/2023 10:15 AM EDT Cardiac Surgery Progress Note Purniam Thacker is a 67 y.o. female with [...] 0600 and on the weekends please page [phone]. * Rylie Rodriguez MD - 05/19/2023 3:59 [...] and plan. Cynthia Blackburn MD Nephrology Pager: [phone] * Diana Espino - 05/19/2023 1:49 PM EDT Supervisor Lead Burning Encounter Note Patient Name: Purnima Thacker : [id number] MR#: [id number] Admit Date: 05/08/2023 9:14 AM Hospital Day [...] returning home alone. Anticipated Discharge Disposition (PT): snf facility, swing bed rehabilitation facility Consult Recommendations: [...] as stated. Total Minutes, Physical Therapy: 38 (0346-2651) Henrik Navarrete PTA Pager: [phone] Physical Therapy Inpatient Rehabilitation Department * Nico [...] 0600 and on the weekends please page [phone]. * Laure Ricks PA - 05/19/2023 7:56 [...] Ricks PA-C Interventional Radiology IR Team Pager [phone] * Consuelo Espinoza RN - 05/18/2023 4:13 PM EDT ANGIO NURSING DATABASE Name: Purnima Thacker Date of : 1955 AGE: 67 y.o. Address: [address] [place], [place] [address] (home) Mobile: No relevant phone numbers on [...] tremor G25.0 Hyperlipidemia, unspecified E78.5 Obesity E66.9 NICLOAS (obstructive sleep apnea) G47.33 Rosacea L71.9 Neck pain M54.2 Mixed connective tissue disease M35.1 Symptomatic severe aortic stenosis with low ejection fraction I35.0 Mild coronary artery disease by [facility] 11/09/2022 I25.10 Heart failure with reduced [...] PM EDT NEPHROLOGY PROGRESS NOTE PATIENT: Purnima hTacker : 1955 Interval History: Ms. Thacker is [...] and plan. Cynthia Blackburn MD Nephrology Pager: [phone] * Magdalena Puri, BOILING HOUSE OILER - 05/18/2023 10:51 AM EDT Images from the original note were not included. Formerly [facility] [place] [address] STRUCTURAL HEART DISEASE CONSULTATION NOTE PRIMARY CARE [...] stenosis. She is now status post TAVR Dfbcc-ac-Xdoex with a 23 mm Lai 3 THV 05/12/[address] Sharma. Preliminary findings: Successful right transfemoral TAVR Regak-es-Aadof with a 23 mm Lai 3 THV. [...] residual dissection or perforation. Interval Events: - 10/11 Transferred to [facility] post- TAVR for pressor/inotropic [...] ejection fraction Mild coronary artery disease by [facility] 11/09/2022 Heart failure with reduced ejection [...] 5 mL 5 mL Intravenous BID Mara SerranoANURAG 5 mL at 05/18/23 0831 sodium chloride 0.9 % (flush) (BD PosiFlush Normal Saline 0.9) flush 5-20 mL 5- 20 mL Intravenous Q1Min PRN MaggieMara ernandez APRN aspirin chewable tablet 81 mg 81 mg Oral Daily MaggieMara APRN 81 mg at 05/18/23 0826 ondansetron (pf) (Zofran) (2 mg/mL) injection 4 mg 4 mg Intravenous Q8H PRN MaggieMara APRN4 mg at 05/12/23 0736 pantoprazole EC (Protonix) tablet 40 mg 40 mg Oral Daily MaggieMara ernandez APRN 40 mg at 05/18/23 0826 Or pantoprazole (Protonix) injection 40 mg 40 mg Intravenous Daily MaggieMara APRN 40 mg at 05/12/23 1004 senna-docusate (Pericolace) 8.6-50 mg per tablet 2 tablet 2 tablet Oral Daily PomeroyMara ernandez APRN 2 tablet at 05/16/232111 bisacodyL (Dulcolax) suppository 10 mg 10 mg Rectal Daily PRN PomeroyMara ernandez APRN melatonin tablet 6 mg 6 mg Oral Nightly PRN MaggieMara APRN 6 mg at 05/17/232024 influenza vaccine adjuvanted (Adult 65 Yrs +) (FluAD Quad) (PF) IM injection 0.5 mL 0.5 mL Intramuscular Prior to discharge MaggieMara ernandez APRN FAMILY HISTORY: No family history on [...] NICOLAS Right pleural effusion Cardiogenic shock, recovered Purnimamariza Thacker is a 67 y.o. female with [...] stenosis. She is now status post TAVR Mrhbd-jm-Bfgss with a 23 mm Lai 3 THV [...] Magdalena Puri APRN Structural Heart Team Pager [phone] Team Office Please see addendum by Dr. Sharma for final plan and recommendations Associated attestation - Antelmo Sharma MD - 05/19/2023 10:52 PM EDT I have reviewed Magdalena Puri APRN's above history and I agree with the details as written. The assessment and plan were formulated in discussion with me and I agree with them as documented. Antelmo Sharma MD Pager [phone] * Nico Palacios PA - 05/18/2023 8:13 [...] 0600 and on the weekends please page [phone]. * Loli Hernandez, PT - 05/17/2023 5:27 [...] Med Sci 55(4): M221-31. Nerissa S, Lucinda James, Enedelia P, Sim R, Asad P, Fredo Porter et al. Five times sit to stand [...] returning home alone. Anticipated Discharge Disposition (PT): snf facility, swing bed rehabilitation facility Consult Recommendations: [...] plan as stated. Time IN / OUT: 0137-6617 Total Minutes, Physical Therapy: 54 Billing Code: te-sx2, te-f, angely HERNANDEZ PT Pager: [phone] Physical Therapy Inpatient Rehabilitation Department * Cynthia [...] Well controlled. Cynthia Blackburn MD Nephrology Pager: [phone] * Mara Serrano, BOILING HOUSE OILER - 05/17/2023 8:26 AM EDT Cardiac Surgery Progress Note Purnima Thacker is a 67 y.o. 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 PMH of s/p tissue AVR (2017), mixed connective tissue disease HTN, HLD, INCOLAS, diverticulosis, rosacea, essential tremor, and depression. 24h [...] attending surgeon on rounds this morning. MARA SERRANO, ANURAG 05/17/2023 Between the hours of 1800 - 0600 and on the weekends please page [phone]. * Guerda Del Valle C - 05/16/2023 10:44 AM EDT Nutrition Services Note - Low Nutrition Acuity Purnima Thacker is a 67 y.o. female Reason for intervention: hospital day 9 Nutrition Plan: Continue diet order Encourage good PO Lasix and Zofran noted Added special serve: open containers Monitor weight Patient scheduled for a hospital day 9 nutrition evaluation. Clerical Proofreader met with pt at bedside. Pt reports that her appetite and PO has much improved since admission. Denies nausea/vomiting or trouble chewing/swallowing. Clerical Proofreader provided snack list but pt not interested in adding snacks at this time. Her only concern was that she is worried that she will eat too much which will cause too much pressure in her stomach. Clerical Proofreader assured pt and suggested eating smaller but [...] Last Bowel Movement: 05/10/23 Guerda Del Valle Genomics Scientist * Vinod Juárez PA - 05/16/2023 10:19 [...] 0600 and on the weekends please page [phone]. * Michael Jeffers MD - 05/16/2023 8:11 AM EDT Images from the original note were not included. Hypertension-Nephrology Inpatient Follow-up Purnima Thacker [id number] 1955 ID: 67 y.o. old female seen [...] IRONSAT 12 (L) 05/16/2023 SFOLATE >20.0 07/03/2022 [id number] 07/03/2022 Lab Results Component Value Date [...] Dr. Ayoub. Please contact me at phone: [phone] or pager: [phone] with any questions. Michael Jeffers MD Nephrology & Hypertension Fellow Associated attestation - Kristopher Ayoub MD - 05/16/2023 2:15 PM EDT Renal Staff Addendum Patient seen and examined with Dr. Jefefrs. I agree with the above note which [...] -Nephrology consulted, labs and renal US ordered -[place] removed, ambulated around the unit -bilateral pleural [...] 0600 and on the weekends please page [phone]. * Hortencia Cody MD - 05/15/2023 2:07 [...] 05/15/23399 78.2 kg (172 lb 6.4 oz) 05/14/23599 79.7 kg (175 lb 11.3 oz) 05/13/23 [...] not included. Hypertension-Nephrology Inpatient Follow-up Purnima Thacker [id number] 1955 ID: 67 y.o. old female seen [...] HGB 7.8 (L) 05/13/2023 SFOLATE >20.0 07/03/2022 [id number] 07/03/2022 Lab Results Component Value Date [...] Dr. Ayoub. Please contact me at phone: [phone] or pager: [phone] with any questions. Michael Jeffers MD Nephrology [...] last 720 hours. T/L/D Art ETT CVL [place] ASSESSMENT, MANAGEMENT, and DECISION MAKIN y.o. female [...] outlined inthis evaluation. HAVEN BA, PT Pager: [phone] Physical Therapy Inpatient Rehabilitation Department Time IN / OUT: 2980-1442 Total time: Total Minutes, Physical Therapy: 30 [...] no evidence of hematoma. Tubes/Lines/Drains: RIJ, Art, ROSAURA Assessment/Plan: 67 y.o. female 2 Days [...] 0600 and on the weekends please page [phone]. * Antelmo Sharma MD - 05/14/2023 7:56 AM EDT Images from the original note were not included. Formerly [facility] [place] [address] STRUCTURAL HEART DISEASE CONSULTATION NOTE PRIMARY CARE [...] stenosis. She is now status post TAVR Wsyhu-xw-Tznus with a 23 mm Lai 3 THV 05/12/[address] Sharma. Preliminary findings: Successful right transfemoral TAVR Jjses-jo-Mighj with a 23 mm Lai 3 THV. [...] ejection fraction Mild coronary artery disease by [facility] 11/09/2022 Heart failure with reduced ejection [...] 81 mg 81 mg Oral Daily Lorri Chinchlila PA 81 mg at 05/13/23 0824 Or [...] Oral Daily Lorri Chinchilla PA 2tablet at 05/13/232103 [START ON 05/15/2023] bisacodyL (Dulcolax) suppository 10 [...] stenosis. She is now status post TAVR Ftbej-vl-Xwvcs with a 23 mm Lai 3 THV 05/12/[address] Sharma. Janet TAVR case notable for coronary LAD protective MINNA. Status post TAVR, the patient was transferred to [facility] for pressor and inotropic support. Pressors weaned overnight 05/12. Cardiac indices by thermodilution remained >3 with continued Milrinone 0.125 mcg/kg/min prior to PAC removal. EKG todayNSR with stable MS/QRS intervals. Hemoglobin slowly down-trending (8.2-> 7.8-> 7.2). [...] Brody Kaplan APRN Structural Heart Team Pager [phone] Team Office Please see addendum by Dr. [...] exposure. Nephrology consultationtoday. Antelmo Sharma MD Pager [phone] * Antelmo Cardenas RN - 05/14/2023 5:18 AM EDT Pt AOx4, complaining of mild/moderate generalized pain (states her Meloxicam is effective at home) currently refusing prn oxycodone. NAEON, hemodynamically stable on Milrinone, Maps >65, ST in [id number]'s down to NSR with frequent multifocal PVC's. [...] from the original note were not included. Formerly [facility] [place] [address] STRUCTURAL HEART DISEASE PROGRESS NOTE PRIMARY CARE [...] stenosis. She is now status post TAVR Dvcmv-fq-Vqsid with a 23 mm Lai 3 THV 05/12/[address] Sharma. Preliminary findings: Successful right transfemoral TAVR Kzapz-bo-Jtusu with a 23 mm Lai 3 THV. [...] ejection fraction Mild coronary artery disease by [facility] 11/09/2022 Heart failure with reduced ejection [...] disease Assessment and Plan: Patient ID: Purnima M Kirstie is a 67 y.o. [...] stenosis. She is now status post TAVR Zugjz-ey-Awzjg with a 23 mm Lai 3 THV 05/12/[address] Sharma. Janet TAVR case notable for coronary LAD protective MINNA. Status post TAVR, the patient was transferred to [facility] for pressor and inotropic support. Pressors weaned overnight. Cardiac indices by thermodilution remain greater than 3 with continued Milrinone 0.125 mcg/kg/min. EKG today NSR with stable MS/QRS intervals. Hemoglobin 7.8 today from 8.5, likely [...] Brody Kaplan APRN Structural Heart Team Pager [phone] Team Office Please see addendum by Dr. [...] DAPT moving forward. Antelmo Sharma MD Pager [phone] * Bonita Miguel PA - 05/13/2023 8:30 AM EDT Cardiac Surgery Progress Note Purnima Thacker is a 67 y.o. 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 PMH of s/p tissue AVR (2017), mixed connective tissue disease HTN, HLD, NICOLAS, diverticulosis, rosacea, essential tremor, and depression. 24h Events: From section laborer for above procedure Extubated at ~1600 [...] soft b/l, no evidence of hematoma. Tubes/Lines/Drains: Bayview, RIJ, A-line, Art, PIV Assessment/Plan: 67 y.o. [...] 0600 and on the weekends please page [phone]. * Onelia Schwartz MD - 05/12/2023 1:44 [...] ejection fraction Mild coronary artery disease by [facility] 11/09/2022 Heart failure with reduced ejection [...] FiO2 weaned to 40%. 1105: ABG 7.34/42/73/22 9843-9059: SBT performed and passed on these settings [...] PCP: Magdalena Acosta MD PCP phone number: [phone] Date of Admission: 05/08/2023 ( Hospital Day [...] 012) [SEP Hold] NORepinephrine 6 mcg/min (05/12/23 0642) Ventilator Settings: Mode: , SET RR: TV: PEEP: FiO2: VARIABLES PATIENT RR: PIP: Pplateau: SpO2: OUTPUT Resp: (!) 31 SpO2: 94 % ABG (Arterial Blood Gas) Recent Labs 05/12/23 0700 05/12/2331705/12/2310505/11/23193905/11/23 1447 PHART -- 7.34* 7.34* -- -- UGZ4JSS -- 30* 30* -- -- PO2ART -- 72* 81* -- -- RLT9SFZ -- 16.0* 15.7* -- -- LACTATEVEN 2.4* 2.7* 2.7* 4.8* 2.9* VBG (Venous Blood Gas) Recent Labs 05/12/23 0700 05/12/238 05/12/2310505/11/23193905/11/23 1447 LACTATEVEN 2.4* 2.7* 2.7* 4.8* 2.9* Mixed Venous Sat Recent Labs 05/12/23 0508 05/12/23 0321 05/12/23 0114 05/12/23 0030 Y1COPJ7 30.7 32.7 37.3 25.1 Objective: Vitals Last [...] swelling;no warmth 05/11/231999 Interventions other (see comments) 05/11/23 1500 Peripheral IV Line - Single Lumen 05/11/231999 22 gauge (Active) Indication/Daily Review of Necessity medication therapy intermittent 05/11/231999 Site Preparation/Maintenance dressing: dry and intact 05/11/231999 Securement catheter stabilization device, secured with 05/11/231999 Patency/Maintenance flushed without difficulty;blood return, able to obtain 05/11/231999 Phlebitis 0-->no symptoms 05/12/23599 Infiltration 0-->no symptoms 05/12/23599 Site Signs/Symptoms no redness;no swelling;no warmth 05/11/231999 Labs: Recent Labs 05/12/2310405/11/232 05/10/23 0228 05/09/23 0400 05/08/23 1138 WBC 9.0 7.0 5.2 6.4 4.1 HGB 9.8* 11.1* 10.2* 10.2* 10.2* HCT 28.7* 32.7* 30.2* 30.3* 29.6* PLATELET 186 165 151 151 136* MCV 95.3* 95.1* 97.1* 96.2* 97.0* Recent Labs 05/12/23 0605/12/23 01005/11/23 0442 05/10/23 0228 05/09/23 0400 05/08/23 1600 [...] have questions please contact the health personal caregiver that requested your imaging first. Cardiac for [...] have questions please contact the health personal caregiver that requested your imaging first. Angiogram Abdomen [...] have questions please contact the health personal caregiver that requested your imaging first. Chest One [...] have questions please contact the health personal caregiver that requested your imaging first. Chest One [...] have questions please contact the health personal caregiver that requested your imaging first. Assessment & [...] and inotrope. She is planned for a lqxdg-vt-iollo TAVR this morning, which should hopefully improve [...] MD, FACP, FACC Section of Cardiovascular Medicine [facility] Sand Millerchemical blender [facility] [employer] [facility] * Noreen Deutsch RN - [...] ejection fraction Mild coronary artery disease by [facility] 11/09/2022 Heart failure with reduced ejection [...] 05/11/2023 4:11 PM EDT Reported off to BURNER OPERATOR and pt transferred over in the bed for higher level of care. * Antelmo Sharma MD - 05/11/2023 9:45 AM EDT Images from the original note were not included. Formerly [facility] [place] [address] [place] [address] STRUCTURAL HEART DISEASE CONSULTATION NOTE PRIMARY CARE [...] who had been referred for possible TAVR kecrn-xr-vfjhk evaluation. Her primary symptoms are of dyspnea [...] [facility]. 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 She [...] ejection fraction Mild coronary artery disease by [facility] 11/09/2022 Heart failure with reduced ejection [...] hour(s)) Lactate, whole blood, send to lab ([facility] Result Value Ref Range Lactate WB 3.1 (H) 0.5 - 2.2 mmol/L Heparin (unfractionated) Level Result Value Ref Range Heparin UFH Level 0.46 IU/mL Lactate, whole blood, send to lab ([facility] Result Value Ref Range Lactate WB 1.8 [...] leads Confirmed by MD Harshil, Enrique Bell ([id number]) on 05/10/2023 8:11:46 AM Cardiac Cath 11/09/2022 [...] alert Dr. Hudson of her inpatient status, [place] primary cardiac surgeon. Based on recent clinic visit, tentative plan had been for TAVR JANET issa ferrera given her chronological age. Cardiac cath 11/09/2022 notable for non-obstructive coronary disease. TAVR CTAs planned for today. Will review her case with cardiac surgery to determine best timing and therapies for her valve intervention. Addendum 05/11/2023 6:48 PM Due to decompensating HFrEF, she was transferred to [facility] this afternoon for further management. TAVR CT imaging support for adequate ileofemoral access. Given her acute deterioration today, will planfor RTF TAVR on 05/12/2023. Brody Kaplan APRN Structural Heart Disease Pager [phone] Please see addendum by Dr. Sharma for [...] signed and dated. Antelmo Sharma MD Pager [phone] * Harini Lance MD - 05/11/2023 6:06 AM EDT Images from the original note were not included. Cardiology Progress Note Patient info: Name: Purnima Thacker : 1955 PCP: Magdalena Acosta MD PCP phone number: [phone] Date of Admission: 05/08/2023 ( Hospital Day [...] Indication/Daily Review of Necessity medication therapy intermittent 10/07/23 2000 Site Preparation/Maintenance dressing: dry and intact 05/08/231999 [...] 0.90 1.03 -- 1.02 LFTs Recent Labs 05/11/23 0442 05/10/23 0228 05/09/23 0400 PROT 7.2 6.4 [...] have questions please contact the health personal caregiver that requested your imaging first. : 05/08 [...] Lance MD Internal Medicine, PGY-1 Cardiology M1-S2, #[id number] 05/11/2023, 6:06 AM Associated attestation - Juan Luis Gonzalez MD - 05/11/2023 10:20 PM EDT Cardiology Attending Addendum Active Hospital Problems Diagnosis Symptomatic severe aortic stenosis with low ejection fraction Heart failure with reduced ejection fraction due to heart valve disease 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, 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) Mild coronary artery disease by [facility] 11/09/2022 Hyperlipidemia, unspecified NICOLAS (obstructive sleep [...] PCP: Magdalena Aocsta MD PCP phone number: [phone] Date of Admission: 05/08/2023 ( Hospital Day [...] for the past 168 hrs: Weight 05/10/23 040 78.1 kg (172 lb 1.6 oz) 05/09/23 2336 78.4 kg (172 lb 14.4 oz) 05/09/23399 76.8 kg (169 lb 5 oz) 05/08/23 09 76.4 kg (168 lb 6.9 oz) Admit [...] 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) Mild coronary artery disease by [facility] 11/09/2022 Hyperlipidemia, unspecified NICOLAS (obstructive sleep [...] PCP: Magdalena Acosta MD PCP phone number: [phone] Date of Admission: 05/08/2023 ( Hospital Day [...] Gas) No results found for: PHART, PO2ART, LNJ3BCV, FSY8NRN Microbiology: Microbiology Results (Last 30 days) No [...] PPx: Diet: Daily Healthy Menu Choices/Cardiac diet ([facility]-Diet) Lines: Peripheral IV Line - Single Lumen [...] 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) Mild coronary artery disease by [facility] 11/09/2022 Hyperlipidemia, unspecified NICOLAS (obstructive sleep [...] fraction I35.0 Mild coronary artery disease by [facility] 11/09/2022 I25.10 Heart failure with reduced ejection fraction due to heart valve disease I50.20, I38 Cardiogenic shock R57.0 S/P TAVR (transcatheter aortic valve replacement) Z95.2 Past Medical History: Diagnosis Date Anemia Past Surgical History: Procedure Laterality Date PRG CATH PLNV LEFT HEART CATH & ARTS W/INJ & ANGIO IMG S&I N/A 11/09/2022 CORONARY ANGIOGRAPHY; W [facility],POSSIBLE PCI (WRVU 5.6) performed by Mario Alberto Escobedo MD at [facility] CATH LABS PRO AORTOPLAS FOR SUPRAVALV STEN N/A 09/21/2016 @AORTOPLASTY FOR SUPRAVALVULAR STENOSIS (WRVU 29.33) performed by Alirio Hudson MD at [facility] MAIN OR PRO REPLACEMENT PROSTHETIC AORTIC VALVE OPEN W CARDIOPULMONARY BYPASS HOMOGRF/STENT N/A 09/21/2016 @REPLACE AORTIC VALVE, OPEN, W\CPB, W\PROSTHETIC VALVE (WRVU 41.32) performed by Alirio Hudson MD at [facility] MAIN OR Social History and Habits: [...] fraction I35.0 Mild coronary artery disease by [facility] 11/09/2022 I25.10 Heart failure with reduced ejection fraction due to heart valve disease I50.20, I38 Cardiogenic shock R57.0 S/P TAVR (transcatheter aortic valve replacement) Z95.2 Past Medical History: Diagnosis Date Anemia Past Surgical History: Procedure Laterality Date PRG CATH PLNV LEFT HEART CATH & ARTS W/INJ & ANGIO IMG S&I N/A 11/09/2022 CORONARY ANGIOGRAPHY; W [facility],POSSIBLE PCI (WRVU 5.6) performed by Mario Alberto Escobedo MD at [facility] CATH LABS PRO AORTOPLAS FOR SUPRAVALV STEN N/A 09/21/2016 @AORTOPLASTY FOR SUPRAVALVULAR STENOSIS (WRVU 29.33) performed by Alirio Hudson MD at [facility] MAIN OR PRO REPLACEMENT PROSTHETIC AORTIC VALVE OPEN W CARDIOPULMONARY BYPASS HOMOGRF/STENT N/A 09/21/2016 @REPLACE AORTIC VALVE, OPEN, W\CPB, W\PROSTHETIC VALVE (WRVU 41.32) performed by Alirio Hudson MD at [facility] MAIN OR Social History and Habits: [...] days, which prompted her to present to [employer] [facility] [employer]. She also endorses some intermittent retrosternal chest pain with exertion.She endorses some dizziness with exertion, but has not gotten faint or passed out. At [facility] she was noted to be afebrile, blood pressure 105/64, HR 120s, satting 95% on 2L NC. Labs from [facility] are below, of note she [...] 89/59, which prompted the transfer to us. [facility] labs: CBC - Hgb 10.5 CMP - Cr 1.1 BNP 32134 HsTrop 1358 Lactate 1.6 D-dimer 1183 Interval History Patient was admitted to [facility] due to concern on low [...] Klaudia Reid MD Internal Medicine PGY-1 Pager [phone], M1-S1 Service Associated attestation - Juan Luis Gonzalez MD - 05/08/2023 10:00 PM EDT Cardiology Attending Addendum Active Hospital Problems Diagnosis Symptomatic severe aortic stenosis with low ejection fraction Heart failure with reduced ejection fraction due to heart valve disease Mild coronary artery disease by [facility] 11/09/2022 Hyperlipidemia, unspecified History of aortic valve replacement Resolved Hospital Problems No resolved problems to display. I have interviewed and examined the patient, reviewed the available data, and have discussed my findings, assessment and plan with the patient and the team on admission to S2 service (from [facility] service) today. I agree with [...] PCP: Magdalena Acosta MD PCP phone number: [phone] Date of Admission: 05/08/2023 ( Hospital Day 0 days ) Attending:Enrique Chua MD ID: Purnima Thacker is a 67 y.o. female w/ PMH of s/p bioprosthetic AVR in 2016 with recent concern for severe restenosis, HTN, HLD, mixed connective tissue disease, who presents in transfer from [facility] with worsening BONILLA and weight [...] four days, which promptedher to present to [facility]. She also endorses some intermittent retrosternal chest pain with exertion. She endorses some dizziness with exertion, but has not gotten faint or passed out. At [facility] she was noted to be afebrile, blood pressure 105/64, HR 120s, satting 95% on 2L NC. Labs from [facility] are below, of note she [...] 89/59, which prompted the transfer to us. [facility] labs: CBC - Hgb 10.5 CMP - Cr 1.1 BNP 71362 HsTrop 1358 Lactate 1.6 D-dimer 1183 Vasoactive [...] tissue disease, who [facility] BONILLA and weight gain [...] #Routine Diet: Daily Healthy Menu Choices/Cardiac diet ([facility]-Diet) DVT Prophylaxis: heparin gtt GI Prophylaxis: none [...] to the planned procedure. Hand Hygiene: The ssds mk 2 advanced operator did perform hand hygiene prior to arterial [...] Successful arterial line placement. Crispin Timmons MD Slip Laster Associated attestation - Onelia Schwartz MD - [...] (flow was non-pulsatile) and appearance of blood. Bayview-Marily catheter was placed and locked at 55 [...] information for follow-up [facility], [place] [address] [place] [address] Cardiac Rehab, [facility] [address] [place] [address] [facility], [place] [address] [place] [address] Transportation: family or friend will provide *Brother [...] Type: *No Product type* / Secondary Insurance: [employer] [place] Prescription Coverage: Yes This plan was formulated with input from patient, family (please identify family/friend involved ifapplicable) and team. All are in agreement with plan. Aliza Martino MSN-Ed, RN ACM nitriles lab technician Office of Care Management Pager #[phone] * Plan of Care - Favian Mckeon [...] Lana Chaudhary RN - 05/21/2023 4:46 PM [facility] OFFICE OF CARE MANAGEMENT [...] Type: *No Product type* / Secondary Insurance: [employer] [facility] [place] Last Physical Therapy Recommendation: (Home with assist from Brother; Friend arriving Tues) with walker, front wheeled Last Occupational Therapy Recommendation: swing bed rehabilitation facility, snf facility (vs home with support for IADLs) with walker, front wheeled, shower chair Plan for discharge is: Home w/ Services Outpatient Agency/Support Group Needs: Homecare agency Home Health Services: Physical Therapy, Occupational Therapy Agency Referrals: I have met with the patient to: discuss discharge planning needs. describing our affiliations within the [facility] and educate about their right to choose where referrals are sent. provide a list of Home Health Agencies / Durable Medical Equipment vendors which serve their preferred geographic area. They have requested referrals to: [facility] [address] [place] [address] [facility] [place], [place] Note routed to a Children'S Nursery Assistant who will communicate referrals to facilities and provide any required information. Transportation: family or friend will provide *Brother Raymond on Tuesday 05/22 at 1000 Barriers to discharge: Does not have home / assist available until tomorrow Tuesday 05/22 Plan going forward: Discharge home into the 22/02 home care of brother Raymond with [facility] and [facility] PT/OT services on Tuesday 05/22 [...] Attending: All Staff: Staff Role Juanita Almaguer Case Manager Laure Ricks PA Physician Director Of Materials Management Magdalena Rodriguez RN Radiology Nurse Consuelo Espinoza child care Nurse Post-operative diagnosis/Indication: Right pleural effusion Name [...] Type: *No Product type* / Secondary Insurance: [facility] [place] Last Physical Therapy Recommendation: snf facility, swing bed rehabilitation facility with to be determined Last Occupational Therapy Recommendation: with Plan for discharge is: [facility] Facility / Swing Outpatient Agency/Support Group Needs: None Agency Referrals: Based on discussions with the multi-disciplinary healthcare team, the patient would benefit from SNF / Swing level of care at discharge. I have met with the patient to: discuss discharge planning needs. provide the [facility], Office of Care Management letter from the Dairy Chemist pertaining to rehab referrals. provide a letter describing our affiliations within the [facility] and educate about their right to choose where referrals are sent. provide the [facility] Star Quality Rating handout. review the different levels of rehab including SNF, swing, and acute. provide a list of facilities within their preferred geographic area. request that they provide at least three choices for referral. They have requested referrals to: [facility] [address] [place] [address] [facility] ([facility]) [address] [place] [address] (Accepts pts only after exhausting all other local SNF options) [facility] (Swing) ([facility]) [address] [place] [address] PHONE: [phone] FAX: [phone] [facility] (Swing) [facility]) [address] [place] [address] PHONE: [phone] FAX: [phone] Note routed to a Children'S Nursery Assistant who will communicate referrals to facilities and [...] Crenshaw RN - 05/17/2023 10:25 AM EDT [facility] CARDIAC REHABILITATION Purnima Thacker was seen today regarding participation in the outpatient Phase 2 Cardiac Rehabilitation at [facility]. The patient agrees to a [...] from the original note were not included. [facility] NEPHROLOGY/HYPERTENSION CONSULT NOTE PATIENT: Purnima Thacker [...] in her course. She ultimately underwent a jnwba-qz-yvagg procedure on and tolerated it well (see operative details). [facility] the [facility] int[facility] and sedated on some pressors support.. [...] STUDIES: LABS: CBC: Recent Labs 05/14/2310905/13/2311405/12/23 1405 05/12/23104 WBC 11.2* 8.6 -- 9.0 HGB 7.2* 7.8* 8.5* 9.8* PLATELET 112* 130* -- 186 Chemistry: Recent Labs 05/14/2310905/13/2305/12/23 1405 05/12/23 0600 NA 132* 132* -- [...] 1423 05/12/23 1105 PHART 7.39 7.37 7.34* LLO8WUD 33* 36 42 PO2ART 101 102 73* SMK6XXD 19.5* 20.4 22.1 LACTATEVEN 1.5 1.8 2.8* GMI1AFX 40 40 40 PFRATIOART2 252 255 182 VBG (Venous Blood Gas) Recent Labs 05/12/23 1557 05/12/23 1423 05/12/23 1105 LACTATEVEN 1.5 1.8 2.8* Mixed Venous Sat Recent Labs 05/12/23 1425 05/12/23 0508 05/12/23 0321 V2TWZH4 59.9 30.7 32.7 LFT's: Recent Labs 05/14/23 0110 05/13/23 0115 05/12/23 0600 BILITOT 0.4 0.5 0.9 BILIDIR -- 0.3 -- ALBUMIN 3.6 3.0* 3.5 ALKPHOS 86 85 100 ALT 437* 903* 1,174* AST 319* 792* 1,435* No results found for: UPROTCREAT No results found for: TPROTEINPEP, ALBELECT No results found for: MICROALBUR, PZVN88TCE No results found for: HA1C Lab Results Component Value Date CALCIUM 8.5 05/14/2023 PHOS 4.7 (H) 05/08/2023 No results found for: 25OHVITD MICROBIOLOGY: ProcedureComponentValueUnitsDate/TimeUrine culture [[id number]]Collected: 05/11/231921Lab Status: Final resultSpecimen: Clean Catch UrineUpdated: [...] consulted for assessment if this patient needs PUNCH OPERATOR. Atthis time, we can likely hold off on PUNCH OPERATOR. Her volume status appears sufficient and her metabolic kanwal angements with mild acidosis is not too profound. Patient does not have significant uremic symptoms. We can hold off for today, but the patient is a high risk candidate for needing PUNCH OPERATOR in future daysespecially if her Cr curve trends the direction it is for the next several days. S/p Esejv-io-Xarzd TF TAVR: Management per cardiology. On milrinone gtt. PLAN: - Please obtain following diagnostics: renal US, urinalysis, urine prot/Cr ratio, urine albumin/Cr ratio, CK, uric acid, serum osmol, daily VBGs - No acute indications for PUNCH OPERATOR/dialysis. We will keep close eye on Cr trend, volume status, and metabolics to ensure patient still does not need PUNCH OPERATOR as she ensues intrinsic renal recovery - [...] M.H.Katherine., M.A. PGY-V Nephrology-Hypertension Fellow Page # [phone] [facility] [address] floor, [employer] [address] [place] [address] * Care Management - Mario Alberto Olmos [...] Units/min (05/12/23599) [SEP Hold] milrinone 0.375 mcg/kg/min (10/11/23 0600) [MAR Hold] DOBUTamine Stopped (05/12/23 0120) [MAR Hold] [...] Type: *No Product type* / Secondary Insurance: [facility] Plan for discharge is: Home w/o [...] function, PT/OT * Plan of Care - Ajnu Dominguez RN - 05/12/2023 5:07 PM EDT OUTCOME EVALUATION NOTE: OUTCOME SUMMARY: Pt went for a TAVR at 730. Returned to [facility] at 0945. Was intubated in the section laborer due to agitation. Maintained bedrest for [...] Operative Note Patient Name: Purnima Thacker : [id number] MR#: [id number] Case Date: 05/12/2023 Surgeon: Surgeon(s) and Role: [...] procedure Note: Patient Name: Purnima Thacker : [id number] MR#: [id number] Case Date: 05/12/2023 Operators Surgeon: Surgeon(s) and [...] main with 4.0 x 30 mm Resolute [facility] Eluting Stent Perclose x1 + Angio-seal 8 Fr x1, RFA Manual pressure, LFA Manual pressure, LFV Endotracheal intubation (performed by cardiac anesthesia) Preliminary findings: Successful right transfemoral TAVR Brzeu-gv-Wilkn with a 23 mm Lai 3 THV. [...] MD, M.Sc. Structural Heart Disease Fellow Pager :[phone] Antelmo Sharma MD Pager [phone] * Op Note - Alirio Hudson MD - 05/12/2023 7:37 AM EDT Preop Diagnosis: Severe aortic stenosis, symptomatic. Postop Diagnosis: Same. Procedure: Transfemoral TAVR procedure with 23mm valve. Surgeon: Alirio Hudson M.D. Director Sports: Danny CULP Procedure: The patient was taken to the section laborer. The patient had monitored anesthesia care. 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 Formerly [facility] [place] [address] STRUCTURAL HEART DISEASE CONSULTATION NOTE PRIMARY CARE [...] who had been referred for possible TAVR [id number] evaluation. Her primary symptoms are of dyspnea [...] [facility]. 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 PROBLEM LIST: Patient Active Problem List Diagnosis Symptomatic severe aortic stenosis with low ejection fraction Mild coronary artery disease by [facility] 11/09/2022 Heart failure with reduced ejection [...] hour(s)) Lactate, whole blood, send to lab ([facility] Result Value Ref Range Lactate WB 1.8 [...] leads Confirmed by MD Harshil, Enrique Bell ([id number]) on 05/10/2023 8:11:46 AM Assessment and Plan: [...] alert Dr. Hudson of her inpatient status, [place] primary cardiac surgeon. Based on recent clinic [...] Antelmo Sharma MD Structural Heart Disease Pager [phone] * Plan of Care - Sarahi Nice RN - 05/10/2023 3:55 AM EDTSumavis: RN Note and Care Plan Sarahi Nice RN assumed care of pt at time of their arrival to room [facility]. Pt voices shortness of breath [...] Identify and Manage Fall Risk Flowsheets (Taken 05/10/2023199) Safety Promotion/Fall Prevention: safety round/check completed Intervention: Prevent Skin Injury Flowsheets (Taken 05/10/2023199) Body Position: position changed independently Intervention: Prevent and Manage VTE (Venous Thromboembolism) Risk Flowsheets (Taken 05/09/2023 6596) VTE Prevention/Management: anticoagulant therapy Intervention: Prevent Infection Flowsheets (Taken 05/10/2023199) Infection Prevention: environmental surveillance performed equipment surfaces [...] Plan Flowsheets (Taken 05/09/2023 1539 by Alie Bradshaw, RN) Equipment Currently Used at Home: none [...] listening utilized Taken 05/08/20231999 by Alivia Kauffman road repairer/Support System Care: self-care encouraged support provided Problem: [...] and Manage Obstructive Sleep Apnea Flowsheets (Taken 05/09/20232335) NPPV/CPAP Maintenance: home PAP equipment/settings used * Initial Assessments - Alie Bradshaw RN - 05/09/2023 3:42 PM EDT Office of Care Management Initial Assessment Alie Bradshaw RN reviewed record and discussed patient with Care Team. Source of Information: Team, bedside nurse, medical record, and Patient Introduced self/reviewed role; services accepted. Admitted From: Transfer from another hospital Location: admitted from [facility] Reason for Hospitalization: Critical aortic stenosis, causing symptoms Past medical History: Past Medical History: Diagnosis Date Anemia Hospitalizations Within the Past 30 Days: no previous admission in last 30 days Current Decision-Making Capacity: Self If AD's have not been completed the following surrogate would be surrogate decision maker per [place] surrogate decision making law. (Only good for 180 days) Any patient receiving care in [place] must abide by [place] law. The hierarchy for surrogate decision making [...] (i) The agent with financial power of contracts attorney or a conservator appointed in accordance [...] DME: none Home Address confirmed as[address] [place] [place] [address] Social & Family Supports: All names listed below confirmed with patient as current and correct Extended Emergency Contact Information Primary Emergency Contact: Martha Thacker Relation: Friend Secondary Emergency Contact: KirstieGiorgio Mobile Relation: Sibling Current Care Provided by: [...] Type: *No Product type* / Secondary Insurance: [facility] ONLY if patient has Medicare A&B - Does this patient have secondary insurance?: Yes ; Prescription Coverage: Yes Preferred Pharmacy: updated to WO Funding in [facility] Status: Patient is a : No Primary Care Provider confirmed: Magdalena Acosta MD [phone] Patient/Caregiver Goals of Treatment: Potential Needs for [...] of a 2 story home with 2 TODD. Patient is independent with ADL's at baseline [...] transition of care planning. Alie Bradshaw RN, Pager-[phone] * Plan of Care - Emily Lucero RN - 05/08/2023 2:54 PM EDT OUTCOME EVALUATION NOTE: OUTCOME SUMMARY: Pt arrived from [facility]. A&O, no c/o pain or [...] 11:30 AM EST Office [place] [address] Magdalena Peralta MD [facility] [place] [address] 03/01/2025 4:15 PM EDT Office Visit Dermatology at [address] [place] [id number] Marek Bonilla MD [address] [place] [address] [place] [address] Scheduled Referrals Name Type Priority Associated Diagnoses [...] Heart Cath W/Inj L Ventriculography, Img S&I ([id number]) 05/12/2023 7:37 AM EDT Aortic valve stenosis, [...] EST Narrative 07/08/2023 12:26 PM EST 1 [place] [address] ? Echocardiogram Report Name: PURNIMA THACKER ?Study Date: 07/08/2023 10:31 AMBP: 118/60 mmHg ? Patient Location: 4A : 1955 ? Height: 155 cm ? Account: [id number] Age: 67 yrs ? Weight: 74 kg Gender: Female ?BSA: 1.7 m2 Ordering Physician: ALIRIO HUDSON Referring Physician: VINOD JUÁREZ Performed By: Felicia Norris RDCS Reason For Study: S/P TAVR Exam Location: [facility]. Interpretation Summary Left ventricular systolic function [...] no significant change (post-procedure). Procedure Limited - 80082. Doppler - 64982. Color Doppler - 69676. Satisfactory quality. This study is limited because [...] Note Lee Kincaid MD - 07/08/2023 1 [place] [address] Echocardiogram Report Name: PURNIMA THACKER Study Date: 0:31 AMBP: 118/60 mmHg Patient Location: : 1955 Height: 155 cm Account: [id number] Age: 67 yrs Weight: 74 kg Gender: Female BSA: 1.7 m2 Ordering Physician: ALIRIO HUDSON Referring Physician: VINOD JUÁREZ Performed By: Felicia Norris RDCS Reason For Study: S/P TAVR Exam Location: [facility]. Interpretation Summary Left ventricular systolic function [...] is nosignificant change (post-procedure). Procedure Limited - 84150. Doppler - 87765. Color Doppler - 93997. Satisfactoryquality. This study is limited because of [...] CHEMISTRY ORDERABLE S [facility] [place] [address] * (ABNORMAL) Basic Metabolic Panel (non-fasting) (05/22/2023 [...] Agency Comment Spec In Lab Mara Serrano BOILING HOUSE OILER CHEMISTRY ORDERABL ES [facility] [place] [address] * (ABNORMAL) Basic Metabolic Panel (non-fasting) (05/21/2023 [...] Lab Mara Serrano APRN CHEMISTRY ORDERABL ES [facility] [place] [address] * Lavender Tube HOLD (05/20/2023 2:52 AM EDT) [facility] Lavender Hold Sample in lab. [facility] Blood Venous Draw / Unknown 05/20/2023 2:52 AM EDT 05/20/2023 3:04 AM EDT Mara Serrano ANURAG HEMATOLOGY ORDERAB LES [facility] [place] [address] * (ABNORMAL) Basic Metabolic Panel (non-fasting) (05/20/2023 2:52 AM EDT) [facility] Glucose Lvl 152 65 - [...] Agency Comment Spec In Lab Mara Thomasfield BOILING HOUSE OILER CHEMISTRY ORDERABL ES Performing Organization Address [facility] Co de Phone Number [facility] [place] [address] * (ABNORMAL) Potassium (05/20/2023 2:52 AM EDT) [facility] Signature Potassium 3.4(L) 3.5 - 5.0 mmol/L NORTH [...] Agency Comment Spec In Lab Mara Thomasfield BOILING HOUSE OILER CHEMISTRY ORDERABL ES Performing Organization Address [facility] Co de Phone Number [facility] [place] [address] * XR Chest PA & Lateral (Generic) [...] have questions please contact the health personal caregiver that requested your imaging first. ? [...] who have questions please contactthe health personal caregiver that requested your imaging first. Alirio [...] Agency Comment Spec In Lab Mara Serrano BOILING HOUSE OILER CHEMISTRY ORDERABL ES [facility] [place] [address] * IR Chest Tube Placement Right (05/18/2023 [...] Agency Comment Spec In Lab Mara Serrano BOILING HOUSE OILER CHEMISTRY ORDERABL ES [facility] [place] [address] * XR Chest PA & Lateral (Generic) [...] have questions please contact the health personal caregiver that requested your imaging first. ? [...] who have questions please contactthe health personal caregiver that requested your imaging first. Alirio Hudson MD IMG DX ORDERABLES * (ABNORMAL) Comprehensive metabolic panel (non-fasting) (05/17/2023 4:35 AM EDT) Glucose Lvl 89 65 - 199 mg/dL [facility] Comment:Diabetes: >=200 mg/d L plus symptoms BUN 97(H) 8 - 18 mg/dL [facility] Creatinine 2.97(H) 0.70 - 1.20 mg/dL [facility] Comment:result rechecked-[facility] Sodium 135 135 - 145 mmol/L NORTH [...] MD CHEMISTRY ORDERABLE S Performing Organization Address [facility]/ZIP Co de Phone Number [facility] [place] [address] * Potassium (05/16/2023 11:15 PM EDT) Potassium [...] MD CHEMISTRY ORDERABLE S Performing Organization Address [facility] Co de Phone Number [facility] [place] [address] * Magnesium (05/16/2023 5:22 PM EDT) Magnesium 0.96 0.69 - 1.07 mmol/L [facility] Blood 05/16/2023 5:22 PM EDT 05/16/2023 5:27 PM EDT Narrative Resulting Agency Comment Spec In Lab Alirio Hudson MD CHEMISTRY ORDERABLE S Performing Organization Address City/[facility]/ZIP Co de Phone Number [facility] [place] [address] * (ABNORMAL) Basic Metabolic Panel (non-fasting) (05/16/2023 [...] CHEMISTRY ORDERABLE S [facility] [place] [address] * (ABNORMAL) Potassium (05/16/2023 11:43 AM EDT) [...] MD CHEMISTRY ORDERABLE S Performing Organization Address [facility]/ZIP Co de Phone Number [facility] [place] [address] * (ABNORMAL) Ferritin (05/16/2023 4:41 AM EDT) Pathologist [facility] Ferritin 1,813(H) 30 - 400 ng/mL [facility] Comment: Pediatric reference ranges not verified at [facility], interpret with caution. Reference ranges for females greater than 50 years of age approach values for men, i.e., 30-400 ng/mL. Blood 05/16/2023 4:41 AM EDT 05/16/2023 4:54 AM EDT Narrative Resulting Agency Comment Spec In Lab Kristopher Ayoub MD CHEMISTRY ORDERABLES Performing Organization Address [facility] Co de Phone Number [facility] [place] [address] * (ABNORMAL) PTH (05/16/2023 4:41 AM EDT) Pathologist [facility] PTH 120(H) 15 - 65 pg/mL [facility] Blood 05/16/2023 4:41 AM EDT 05/16/2023 4:54 AM EDT Narrative Resulting Agency Comment Spec In Lab Kristopher Ayoub MD CHEMISTRY ORDERABLES Performing Organization Address [facility] Co de Phone Number [facility] [place] [address] * Vitamin D, 25-Hydroxy (05/16/2023 4:41 AM EDT) Pathologist [facility] 25-OH Vit D Total 33 21 - 100 ng/mL [facility] 25-OH Vit D Interp Sufficient [facility] Blood 05/16/2023 4:41 AM EDT 05/16/2023 4:54 AM EDT Narrative Resulting Agency Comment Spec In Lab Kristopher Ayoub MD CHEMISTRY ORDERABLES [facility] [place] [address] * (ABNORMAL) Blood Gas Venous ([facility]) (05/16/2023 4:22 AM EDT) pH Mike 7.41 7.32 - 7.42 [facility] pCO2 Mike 32(L) 41 - 51 mmHg [facility] pO2 Mike 73(H) 25 - 40 mmHg [facility] HCO3 Mike 19.6 mmol/L [facility] BE Mike -5.1 mmol/L [facility] Hgb Blood Gas 9.7(L) 11.7 - 15.5 g/dL [facility] O2HB Mike 92.8 % [facility] COHB Mike 0.1 % [facility] Comment: Nonsmokers: 0.5-1.5% COHB Smokers: Variable, but usually less than 10% Toxic: 20-30% COHB Lethal: Greater than 60% COHB METHB Mike 0.3 <=1.5 % [facility] Na Whole Blood 130(L) [...] [facility] BGas Source Venous [facility] Blood Venous Draw / Unknown 05/16/2023 4:22 AM EDT 05/16/2023 4:31 AM EDT Narrative Resulting Agency Comment Spec In Lab Bonita TOBAR CHEMISTRY ORDERABLES [facility] [place] [address] * (ABNORMAL) Differential, Automated (05/16/2023 4:20 AM EDT) Neutrophils % 84.1 % [facility] Neutr Abs (ANC) 6.22(H) 1.70 - 6.10 x10(3)/[facility] LAB[facility] Lymphocytes % 5.8 % [facility] Lymphocytes Abs 0.4(L) 0.9 - 3.2 x10(3)/[facility] LAB[facility] Monocytes % 8.8 % [facility] Monocyte Abs 0.6 0.3 - 0.9 x10(3)/[facility] Eosinophils % 0.4 % [facility] Eosinophils Abs 0.0 0.0 - 0.4 x10(3)/[facility] Basophils % 0.0 % [facility] Basophils Abs 0.0 0.0 - 0.1 x10(3)/[facility] LAB[facility] Immature Gran % 0.90 % [facility] Comment: Immature granulocytes(IG's)percentage and absolute count will include metamyelocytes, myelocytes, and promyelocytes. Blood smears from CBCs yielding IG's will be scanned manually for concordance. If this scan disagrees with the automated IG or if promyelocytes are noted, a manual differential will be performed. Amanda Gran Abs 0.07(H) 0.00 - 0.04 x10(3)/ L [facility] Blood 05/16/2023 4:20 AM EDT 05/16/2023 4:29 AM EDT Narrative Resulting Agency Comment Spec In Lab James Agustin MD HEMATOLOGY ORDER JODIE [facility] [place] [address] * (ABNORMAL) Hemogram (05/16/2023 4:20 AM EDT) WBC 7.4 4.0 - 9.5 x10(3)/[facility] LABORATORY RBC 2.40(L) 4.00 - 5.21 x10(6)/[facility] Hemoglobin 7.8(L) 11.7 - 15.5 g/dL [facility] Hematocrit 22.5(L) 35.7 - 45.8 % [facility] MCV 93.8 82.6 - 94.4 fL [facility] MCH 32.5(H) 27.1 - 32.0 pg [facility] MCHC 34.7 31.7 - 35.0 g/dL [facility] Platelets 120(L) 145 - 357 x10(3)/[facility] LABORATORY RDWSD 42.9 37.0 - 46.0 [facility] LABORATORY RDWCV 12.9 11.5 - 14.1 % [facility] MPV 11.3 7.6 - 12.9 [facility] LABORATORY nRBC % Auto 0.7 % [facility] nRBC Abs Auto 0.050(H) 0.000 - 0.000 x10(3)/[facility] Blood 05/16/2023 4:20 AM EDT 05/16/2023 4:29 AM EDT Narrative Resulting Agency Comment Spec In Lab James Agustin MD HEMATOLOGY ORDER JODIE [facility] [place] [address] * (ABNORMAL) Basic Metabolic Panel (non-fasting) (05/16/2023 [...] MD CHEMISTRY ORDERABLE S Performing Organization Address [facility] Co de Phone Number [facility] [place] [address] * (ABNORMAL) Iron and TIBC (05/16/2023 4:20 AM EDT) Iron 31 30 - 150 mcg/dL [facility] TIBC 259 250 - 450 mcg/dL [facility] Iron Saturation 12(L) 20 - 50 % [facility] Blood 05/16/2023 4:20 AM EDT 05/16/2023 4:29 AM EDT Narrative Resulting Agency Comment Spec In Lab Kristopher Ayoub MD CHEMISTRY ORDERABLES Performing Organization Address [facility] Co de Phone Number [facility] [place] [address] * (ABNORMAL) Basic Metabolic Panel (non-fasting) (05/15/2023 12:50 AM EDT) Glucose Lvl 101 65 - 199 mg/dL [...] CHEMISTRY ORDERABLE S [facility] [place] [address] * (ABNORMAL) Hemogram (05/15/2023 12:50 AM EDT) WBC 9.1 4.0 - 9.5 x10(3)/[facility] LABORATORY RBC 2.19(L) 4.00 - 5.21 x10(6)/[facility] LAB[facility] Hemoglobin 7.2(L) 11.7 - 15.5 g/dL [facility] Hematocrit 20.6(L) 35.7 - 45.8 % [facility] MCV 94.1 82.6 - 94.4 fL [facility] MCH 32.9(H) 27.1 - 32.0 pg [facility] MCHC 35.0 31.7 - 35.0 g/dL [facility] Platelets 109(L) 145 - 357 x10(3)/[facility] LAB[facility] RDWSD 43.6 37.0 - 46.0 fL [facility] RDWCV 12.9 11.5 - 14.1 % [facility] MPV 10.4 7.6 - 12.9 fL [facility] nRBC % Auto 2.1 % [facility] nRBC Abs Auto 0.190(H) 0.000 - 0.000 x10(3)/[facility] Blood 05/15/2023 12:5 0 AM EDT 05/15/2023 12:52 AM EDT Narrative Resulting Agency Comment Spec In Lab Alirio Hudson MD HEMATOLOGY ORDERABL ES [facility] [place] [address] * (ABNORMAL) BLOOD GAS 2 VENOUS (05/15/2023 12:49 AM EDT) pH Mike 7.33 7.32 - 7.42 [facility] pCO2 Mike 37(L) 41 - 51 mmHg [facility] pO2 Mike 34 25 - 40 mmHg [facility] HCO3 Mike 19.1 mmol/L [facility] BE Mike -6.8 mmol/L [facility] Hgb Blood Gas 10.8(L) 11.7 - 15.5 g/dL [facility] O2HB Mike 58.1 % [facility] COHB Mike 0.3 % [facility] Comment: Nonsmokers: 0.5-1.5% COHB Smokers: Variable, but usually less than 10% Toxic: 20-30% COHB Lethal: Greater than 60% COHB METHB Mike 0.6 <=1.5 % [facility] Na Whole Blood 136 [...] [facility] Flow Mike 1.0 LPM [facility] BGas Source Venous [facility] Blood 05/15/2023 12:4 9 AM EDT 05/15/2023 12:49 AM EDT Alirio Hudson MD CHEMISTRY ORDERABLE S Performing Organization Address City/State/[facility] Co de Phone Number [facility] [place] [address] * US Retroperitoneal Complete (05/14/2023 3:53 PM EDT) Anatomical Region Laterality Modality Abdomen Ultrasound 05/14/2023 3:44 PM EDT Impressions 05/14/2023 4:39 PM EDT 1. ??Normal sonographic appearance of the bilateral kidneys. No hydronephrosis or renal calculi. 2. ??Unchanged trace left perinephric fluid. 3. ??Partially visualized right pleural effusion. I have personally reviewed the image(s) and the resident's interpretation and agree with the findings, Haydne Robledo MD at 05/14/2023 4:32 PM Thank you for letting us participate in the care of this patient. If you are a health care provider and have any questions regarding this report, please contact the number above. For patients who have questions, please contact the health personal caregiver that requested your imaging first. ? Hayden Robledo, Staff Physician Electronically Signed Final Report ?? 05/14/2023 04:39 pm Narrative 05/14/2023 4:39 PM EDT Renal ? (Signed Final 05/14/2023 04:39 pm) PATIENT INFO: ID #: ? [id number] ?: ??[birth year] (67 yrs)(F) Name: ? PURNIMA THACKER ?Visit Date: 05/14/2023 03:44 pm PERFORMED BY: Attending: ?Meena CULP, Hayden Stafford Resident: ? Anand Camejo MD Performed By: ? Consuelo Tello RDMS Referred By: ?ALIRIO Powell BECCA Location: ? [place] SERVICE(S) PROVIDED: URETRO - Retroperitoneal Complete - [id number] ? [id number] INDICATIONS: EVANS COMPARISON: CT: Abdomen/Pelvis 05/11/23 RIGHT [...] 05/14/2023 04:39 pm) PATIENT INFO: ID #: [id number] : [birth year] (67 yrs)(F) Name: PURNIMA THACKER Visit Date: 05/14/2023 03:44 pm PERFORMED BY: Attending: Hayden Robledo MD Resident: Anand Camejo MD Performed By: Consuelo Tello RDMS Referred By: ALIRIO HUDSON Location: [place] SERVICE(S) PROVIDED: URETRO - Retroperitoneal Complete - [id number] INDICATIONS: EVANS COMPARISON: CT: Abdomen/Pelvis 05/11/23 RIGHT [...] who have questions, please contact the health personal caregiver that requested your imaging first. Hayden [...] MD CHEMISTRY ORDERABLE S Performing Organization Address [facility] de Phone Number [facility] [place] [address] * (ABNORMAL) Uric acid (05/14/2023 3:17 PM EDT) Uric Acid 14.9(H) 2.5 - 6.5 mg/dL [facility] Blood 05/14/2023 3:17 PM EDT 05/14/2023 3:31 PM EDT Narrative Resulting Agency Comment Spec In Lab Alirio Hudson MD CHEMISTRY ORDERABLE S Performing Organization Address [facility] Co de Phone Number [facility] [place] [address] * (ABNORMAL) Osmolality (05/14/2023 3:17 PM EDT) Osmolality 311(H) 275 - 295 mOsm/kg [facility] Blood 05/14/2023 3:17 PM EDT 05/14/2023 3:31 PM EDT Narrative Resulting Agency Comment Spec In Lab Alirio Hudson MD CHEMISTRY ORDERABLE S Performing Organization Address [facility]/ZIP Co de Phone Number [facility] [place] [address] * (ABNORMAL) Differential, Automated (05/14/2023 1:10 AM EDT) Neutrophils % 87.2 % [facility] Neutr Abs (ANC) 9.74(H) 1.70 - 6.10 x10(3)/mc L [facility] Lymphocytes % 3.9 % [facility] Lymphocytes Abs 0.4(L) 0.9 - 3.2 x10(3)/ L [facility] Monocytes % 7.9 % [facility] Monocyte Abs 0.9 0.3 - 0.9 x10(3)/ L [facility] Eosinophils % 0.0 % [facility] Eosinophils Abs 0.0 0.0 - 0.4 x10(3)/[facility] LABOR[facility] Basophils % 0.1 % [facility] Basophils Abs 0.0 0.0 - 0.1 x10(3)/[facility] LABOR[facility]ORY Immature Gran % 0.90 % [facility] Comment: Immature granulocytes(IG's)percentage and absolute count will include metamyelocytes, myelocytes, and promyelocytes. Blood smears from CBCs yielding IG's will be scanned manually for concordance. If this scan disagrees with the automated IG or if promyelocytes are noted, a manual differential will be performed. Aamnda Gran Abs 0.10(H) 0.00 - 0.04 x10(3)/ L [facility] Blood 05/14/2023 1:10 AM EDT 05/14/2023 1:24 AM EDT Narrative Resulting Agency Comment Spec In Lab Bonita TOBAR HEMATOLOGY ORDERABLE S Performing Organization Address [facility]/ZIP Co de Phone Number [facility] [place] [address] * (ABNORMAL) Hemogram (05/14/2023 1:10 AM EDT) Pathologist [facility] WBC 11.2(H) 4.0 - 9.5 x10(3)/[facility] LABORATORY RBC 2.19(L) 4.00 - 5.21 x10(6)/[facility] Hemoglobin 7.2(L) 11.7 - 15.5 g/dL [facility] Hematocrit 20.3(L) 35.7 - 45.8 % [facility] MCV 92.7 82.6 - 94.4 fL [facility] MCH 32.9(H) 27.1 - 32.0 pg [facility] MCHC 35.5(H) 31.7 - 35.0 g/dL [facility] Platelets 112(L) 145 - 357 x10(3)/[facility] LABORATORY RDWSD 41.4 37.0 - 46.0 [facility] LABORATORY RDWCV 12.5 11.5 - 14.1 % [facility] MPV 10.4 7.6 - 12.9 fL [facility] nRBC % Auto 1.5 % [facility] nRBC Abs Auto 0.170(H) 0.000 - 0.000 x10(3)/[facility] Blood 05/14/2023 1:10 AM EDT 05/14/2023 1:24 AM EDT Narrative Resulting Agency Comment Spec In Lab Bonita TOBAR HEMATOLOGY ORDERABLE S [facility] [place] [address] * (ABNORMAL) Comprehensive metabolic panel (non-fasting) (05/14/2023 [...] MD CHEMISTRY ORDERABLE S Performing Organization Address [facility]/ZIP Co de Phone Number [facility] [place] [address] * APTT (05/13/2023 10:15 AM EDT) PTT [...] MD HEMATOLOGY ORDERABL ES Performing Organization Address [facility] Co de Phone Number [facility] [place] [address] * (ABNORMAL) Prothrombin Time (05/13/2023 10:15 AM EDT) PT 14.6(H) 9.4 - 12.5 sec [facility] INR 1.3 [facility] Comment: An INR <2.0 [...] MD HEMATOLOGY ORDERABL ES Performing Organization Address [facility]/ZIP Co de Phone Number [facility] [place] [address] * EKG 12 Lead (05/13/2023 9:22 AM EDT) Ventricular rate 92 BPM MUSE SYSTEM Atrial Rate 92 BPM MUSE SYSTEM P-R Interval 140 ms MUSE SYSTEM QRS Duration 104 ms MUSE SYSTEM Q-T Interval 384 ms MUSE SYSTEM QTC Calculated (Bezet) 474 ms MUSE SYSTEM Calculated P [place] 33 degrees MUSE SYSTEM Calculated R [place] 41 degrees MUSE SYSTEM Calculated T [place] -35 degrees MUSE SYSTEM INTERPRETATION Sinus rhythm with frequent Premature ventricular complexes Septal infarct , age undetermined ST & T wave abnormality, consider lateral ischemia Abnormal ECG When compared with ECG of 12-MAY-2023 10:10, Premature ventricular complexes are now Present I personally reviewed the tracing and edited the fellows interpretation Confirmed by fellow MD Anitha, Carissa ([id number]) on 05/13/2023 3:25:30 PM Confirmed by Maxx Best ([id number]) on 05/13/2023 8:30:56 PM MUSE SYSTEM 05/13/2023 9:22 AM EDT 05/13/2023 8:30 PM EDT Alirio Hudson MD ECG ORDERABLES MUSE SYSTEM * (ABNORMAL) Differential, Automated (05/13/2023 1:15 AM EDT) Neutrophils % 88.1 % [facility] Neutr Abs (ANC) 7.62(H) 1.70 - 6.10 x10(3)/mc L [facility] Lymphocytes % 3.1 % [facility] Lymphocytes Abs 0.3(L) 0.9 - 3.2 x10(3)/mc L [facility] Monocytes % 7.9 % [facility] Monocyte Abs 0.7 0.3 - 0.9 x10(3)/mc L [facility] Eosinophils % 0.0 % [facility] Eosinophils Abs 0.0 0.0 - 0.4 x10(3)/mc L [facility] Basophils % 0.1 % [facility] Basophils Abs 0.0 0.0 [...] TOBAR HEMATOLOGY ORDERABLE S Performing Organization Address City/State/[facility] Co de Phone Number [facility] [place] [address] * (ABNORMAL) Hemogram (05/13/2023 1:15 AM EDT) WBC 8.6 4.0 - 9.5 x10(3)/[facility] LABOR[facility]ORY RBC 2.37(L) 4.00 - 5.21 x10(6)/[facility] Hemoglobin 7.8(L) 11.7 - 15.5 g/dL [facility] Hematocrit 22.2(L) 35.7 - 45.8 % [facility] MCV 93.7 82.6 - 94.4 fL [facility] MCH 32.9(H) 27.1 - 32.0 pg [facility] MCHC 35.1(H) 31.7 - 35.0 g/dL [facility] Platelets 130(L) 145 - 357 x10(3)/[facility] RDWSD 41.7 37.0 - 46.0 fL [facility] RDWCV 12.5 11.5 - 14.1 % [facility] MPV 10.2 7.6 - 12.9 fL [facility] nRBC % Auto 0.5 % [facility] nRBC Abs Auto 0.040(H) 0.000 - 0.000 x10(3)/mcL [facility] Blood 05/13/2023 1:15 AM EDT 05/13/2023 1:29 AM EDT Narrative Resulting Agency Comment Spec In Lab Lorri TOBAR HEMATOLOGY ORDERABLE S Performing Organization Address City/[facility]/ZIP Co de Phone Number [facility] [place] [address] * (ABNORMAL) Hepatic Function Panel (05/13/2023 1:15 AM EDT) [facility] Total Protein 5.5(L) 6.1 - 8.0 g/dL [...] CHEMISTRY ORDERABLE S [facility] [place] [address] * (ABNORMAL) Basic Metabolic Panel (non-fasting) (05/13/2023 [...] CHEMISTRY ORDERABLE S [facility] [place] [address] * (ABNORMAL) BLOOD GAS 2 ARTERIAL (05/12/2023 3:57 PM EDT) pH Art 7.39 7.35 - 7.45 [facility] pCO2 Art 33(L) 35 - 45 mmHg [facility] pO2 Art 101 85 - 104 mmHg [facility] HCO3 Art 19.5(L) 20.0 - 26.0 mmol/L [facility] [place] Art -5.5(L) -3.0 - 3.0 mmol/L [facility] Hgb Blood Gas 9.8(L) 11.7 - 15.5 g/dL [facility] O2HB Art 95.2 94.0 - 97.0 % [facility] COHB Art 0.2 % [facility] Comment: Nonsmokers: 0.5-1.5% COHB Smokers: Variable, but usually less than 10% Toxic: 20-30% COHB Lethal: Greater than 60% COHB METHB Art 0.8 <=1.5 % [facility] Na Whole Blood 129(L) [...] [facility] FIO2 Art 40 % [facility] PF Ratio Art 252 [facility] Blood 05/12/2023 3:57 PM EDT 05/12/2023 3:57 PM EDT Alirio Hudson MD CHEMISTRY ORDERABLE S [facility] [place] [address] * (ABNORMAL) Coox2 (05/12/2023 2:25 PM EDT) pO2 Coox 37 mmHg [facility] Hgb Blood Gas 9.5(L) 11.7 - 15.5 g/dL [facility] O2HB Coox 59.9 % [facility] COHB Coox 0.3 % [facility] Comment: Nonsmokers: 0.5-1.5% COHB Smokers: Variable, but usually less than 10% Toxic: 20-30% COHB Lethal: Greater than 60% COHB METHB Coox 0.7 <=1.5 % [facility] Source Coox Mixed Venous [facility] Blood 05/12/2023 2:25 PM EDT 05/12/2023 2:25 PM EDT Alirio Hudson MD CHEMISTRY ORDERABLE S Performing Organization Address City/[facility] Co de Phone Number [facility] [place] [address] * (ABNORMAL) BLOOD GAS 2 ARTERIAL (05/12/2023 [...] [facility] COHB Art 0.3 % [facility] Comment: Nonsmokers: 0.5-1.5% COHB Smokers: Variable, but usually less than 10% Toxic: 20-30% COHB Lethal: Greater than 60% COHB METHB Art 0.7 <=1.5 % [facility] Na Whole Blood 129(L) [...] [facility] FIO2 Art 40 % [facility] PF Ratio Art 255 [facility] Blood 05/12/2023 2:23 PM EDT 05/12/2023 2:23 PM EDT Alirio Hudson MD CHEMISTRY ORDERABLE S [facility] [place] [address] * (ABNORMAL) Troponin (05/12/2023 2:05 PM EDT) [...] troponin value can be found in the [facility] Test Catalog Troponin - [facility] Test Catalog Reference: Fourth [place] Definition of Myocardial Infarction. Journal of the [place] [employer] 2018;72:8877-3487 Blood 05/12/2023 2:05 PM EDT 05/12/2023 2:14 PM EDT Narrative Resulting Agency Comment Spec In Lab Alirio Hudson MD CHEMISTRY ORDERABLE S Performing Organization Address [facility]/ZIP Co de Phone Number [facility] [place] [address] * (ABNORMAL) Hemoglobin (05/12/2023 2:05 PM EDT) Hemoglobin 8.5(L) 11.7 - 15.5 g/dL [facility] Blood 05/12/2023 2:05 PM EDT 05/12/2023 2:14 PM EDT Narrative Resulting Agency Comment Spec In Lab Alirio Hudson MD HEMATOLOGY ORDERABL ES Performing Organization Address City/[facility]/ZIP Co de Phone Number [facility] [place] [address] * Potassium (05/12/2023 2:05 PM EDT) Potassium [facility] Co de Phone Number [facility] [place] [address] * (ABNORMAL) BLOOD GAS 2 ARTERIAL (05/12/2023 [...] [facility] COHB Art 0.2 % [facility] Comment: Nonsmokers: 0.5-1.5% COHB Smokers: Variable, but usually less than 10% Toxic: 20-30% COHB Lethal: Greater than 60% COHB METHB Art 0.9 <=1.5 % [facility] Na Whole Blood 131(L) [...] [facility] FIO2 Art 40 % [facility] PF Ratio Art 182 [facility] Blood 05/12/2023 11:0 5 AM EDT 05/12/2023 11:05 AM EDT Alirio Hudson MD CHEMISTRY ORDERABLE S Performing Organization Address City/State/[facility] Co de Phone Number [facility] [place] [address] * (ABNORMAL) BLOOD GAS 2 ARTERIAL (05/12/2023 10:14 AM EDT) pH Art 7.18(Criti gabrielle) 7.35 - 7.45 [facility] Comment:Noted by weapons system instrument mechanic. pCO2 Art 45 35 - 45 mmHg [...] [facility] COHB Art 0.2 % [facility] Comment: Nonsmokers: 0.5-1.5% COHB Smokers: Variable, but usually less than 10% Toxic: 20-30% COHB Lethal: Greater than 60% COHB METHB Art 0.9 <=1.5 % [facility] Na Whole Blood 129(L) [...] [facility] FIO2 Art 100 % [facility] PF Ratio Art 186 [facility] Blood 05/12/2023 10:1 4 AM EDT 05/12/2023 10:14 AM EDT Alirio Hudson MD CHEMISTRY ORDERABLE S [facility] [place] [address] * EKG 12 Lead (05/12/2023 10:10 AM EDT) Ventricular rate 116 BPM MUSE SYSTEM Atrial Rate 116 BPM MUSE SYSTEM P-R Interval 158 ms MUSE SYSTEM QRS Duration 114 ms MUSE SYSTEM Q-T Interval 348 ms MUSE SYSTEM QTC Calculated (Bezet) 483 ms MUSE SYSTEM Calculated P [place] 37 degrees MUSE SYSTEM Calculated R [place] 31 degrees MUSE SYSTEM Calculated T [place] -138 degrees MUSE SYSTEM INTERPRETATION Sinus tachycardia [...] interpretation Confirmed by fellow MD Anuja, Jim ([id number]) on 05/12/2023 1:04:20 PM Confirmed by MD Mono, Eleni ([id number]) on 05/12/2023 9:28:34 PM MUSE SYSTEM 05/12/2023 [...] have questions please contact the health personal caregiver that requested your imaging first. ? Narrative 05/12/2023 10:08 AM EDT EXAMINATION: XR CHEST ONE VIEW CLINICAL HISTORY: Post TAVR TECHNIQUE: 1 view of the chest COMPARISON: Chest radiograph from earlier today FINDINGS: Interval placement of endotracheal tube with tip terminating 2 cm above the shira. Interval placement of enteric tube projecting along the expected course of the esophagus and outside the gmgxf-cm-lcxk. Interval retraction of right IJ approach pulmonary [...] expected course ofthe esophagus and outside the hkvsa-yv-fdop. Interval retraction of right IJ approach pulmonary [...] who have questions please contactthe health personal caregiver that requested your imaging first. Alirio [...] 1955 ? Height: 154 cm ? Account: [id number] Age: 67 yrs ? Weight: 75 kg Gender: Female ?BSA: 1.7 m2 Ordering Physician: RADHA HOLLINS Referring Physician: RADHA HOLLINS Performed By: Dilma Bee RDCS Reason For Study: Guidance for TAVR procedure Exam Location: [facility]. Interpretation Summary PRE TAVR: There is [...] mL/m2. POST TAVR: Normal function of the hhqql-dr-jiiug prosthesis. See below for hemodynamic parameters. Slight improvement in left and right ventricular systolic function. LVEF now 20-25%. No pericardial effusion. See report for additional findings. Procedure Limited - 13144. Doppler - 89915. Color Doppler - 97542. Left Ventricle Left ventricle is of normal [...] Date: 307:33 AMBP: 96/63 mmHg Patient Location: [address] : 1955 Height: 154 cm Account: [id number] Age: 67 yrs Weight: 75 kg Gender: Female BSA: 1.7 m2 Ordering Physician: RADHA HOLLINS Referring Physician: RADHA HOLLINS Performed By: Dilma Bee RDCS Reason For Study: Guidance for TAVR procedure Exam Location: [facility]. Interpretation Summary PRE TAVR: There is [...] 28mL/m2. POST TAVR: Normal function of the zjdun-sl-uzfpg prosthesis. See belowfor hemodynamic parameters. Slight improvement in left and right ventricularsystolic function. LVEF now 20-25%. No pericardial effusion. See report for additional findings. Procedure Limited - 68239. Doppler - 70947. Color Doppler - 39474. Left Ventricle Left ventricle is of normal [...] Dyskinetic 3-5moderate 5 - 6-14large Aneurysmal 15-16diffuse Rahda Murphy Gurvinder CULP ECHO ORDERABLES * CARDIAC CATHETERIZATION (05/12/2023 9:10 AM EDT) Anatomical Region Laterality Modality Other Narrative 05/12/2023 2:37 PM EDT ?[facility] ? Cardiac Catheterization/Intervention Report ? Patient Name: Kirstie, Purnima M. ? Procedure Date: 05/12/2023 ? A #: [id number] ? Primary Physician: Antelmo Sharma ? Case #: [id number] ? File Name: [id number] ? Catheterization Order Number: [id number] ? [facility] ? Final Report [place], [place] ? Patient Name: ? Purnima M. Kirstie ? ID#: ?[id number] ? : ?1955 ? Procedure Date: ? May 12, 2023 ? Case #: ? [id number] ? Room: ? 6 ? Case Physicians: ?Antelmo Sharma M.D. ?Start: ?08:03 ?Alirio Hudson M.D. ?Admission: ??05/08/2023 ?Lynda Mcgowan M.D. ? Discharge: ??05/22/2023 ?Fellow: ? Emad Bhavna Tejeda. ? Referring Physician: ??Mario Alberto Chin M.D. ? Procedures: ?* Coronary Angiography ?* Left Heart Catheterization ?* Coronary Stent Insertion ?* Transcatheter Aortic Valve Replacement ?* Vascular Closure Device Deployment ?* Temporary Pacemaker Insertion In Gyro Mechanic ?* Endotracheal Intubation By Non-Cath Physician ?* [...] ??A premounted 4.00 x 30 mm Nils Eastland (MINNA) was ? deployed with a maximum [...] calculated STS risk score was 30.1%. A pprip-nz-qitsk ?procedure was performed on the pre-existing bioprosthetic stented ?prosthesis. The priority of the iznuv-hj-mxdmj procedure was Elective. ?The procedure was performed [...] Lai 3 Ultra RESILIA 23 mm THV (s/n=[id number]) transcatheter ?valve was inserted using standard technique. [...] to nor was it given in the ?section laborer. ?Recommended anti-platelet/anti-thrombotic regimen: ?Continue aspirin 81 mg daily for indefinitely. ?These recommendations are made at the time of the intervention. Patient ?and provider preferences or a changing clinical situation may require ?modification of this regimen. Consult [facility] Interventional Cardiology for ?questions. ? Conclusions: ?* [...] regimen. ? Comments: ?Successful right transfemoral TAVR Oywes-lh-Tcedt with a 23 mm Lai 3 ?THV. [...] insertion-coronary, access site angiography, ?temporary pacemaker in section laborer, intubation-non cath physician, vascular ?closure device, transthoracic echo ??and TAVR. Dr. Alirio Hudson M.D. ?performed the left heart catheterization, access site angiography, ?temporary pacemaker in section laborer, vascular closure device, transthoracic ?echo , TAVR and CPR during cath. Dr. Lynda Mcgowan M.D. performed the ABG, ?anesthesia and intubation-non cath physician. ? Antelmo Sharma M.D. ? Electronically Signed by: Antelmo Sharma M.D. ? Report Finalized: 05/12/2023 ??14:31 ? Report Last Ammended: 07/01/2023 ??11:30 ? Procedure Note Antelmo Sharma MD - 07/01/2023 [facility] Cardiac Catheterization/Intervention Report Patient Name: Purnima Thacker Procedure Date: 05/12/2023 A #: [id number] Primary Physician: Antelmo Sharma Case #: [id number] File Name: [id number] Catheterization Order Number: [id number] [facility] FinalReport [place], [place] Patient Name: Purnima Thacker ID#:[id number] :1955 Procedure Date: May 12, 2023 Case #: [id number] Room: 6 Case Physicians: Antelmo Sharma M.D. Start: 08:03 Alirio Hudson M.D. Admission:05/08/2023 Lynda Mcgowan M.D. Discharge:05/22/2023 Fellow: Rebekah Tejeda M.D. Referring Physician: Mario Alberto Chin M.D. Procedures: * Coronary Angiography * Left Heart Catheterization * Coronary Stent Insertion * Transcatheter Aortic Valve Replacement * Vascular Closure Device Deployment * Temporary Pacemaker Insertion In Gyro Mechanic * Endotracheal Intubation By Non-Cath Physician * [...] guide. A premounted 4.00 x 30 mm Nils Eastland (MINNA) was deployed with a maximum inflation [...] calculated STS risk score was 30.1%. A hjsbj-ru-qycqm procedure was performed on the pre-existing bioprosthetic stented prosthesis. The priority of the rifkd-op-qriwy procedure wasElective. The procedure was performed under Moderate sedation performed byLynda Mcgowan M.D. (see anesthesia report for additional details). Alirio Hudson M.D. participated in the case (see Cardiac Surgery reportfor additional details). The TAVR sheath was a 14 Fr Corona eSheath Introducer and theaccess site was femoral. Rapid ventricular pacing was performed. An Corona Lai 3 Ultra RESILIA 23 mm THV (s/y=[id number])transcatheter valve was inserted using standard technique. The [...] prior to nor was it given inthe section laborer. Recommended anti-platelet/anti-thrombotic regimen: Continue aspirin 81 mg daily for indefinitely. These recommendations are made at the time of the intervention.Patient and provider preferences or a changing clinical situation mayrequire modification of this regimen. Consult [facility] Interventional Cardiologyfor questions. Conclusions: * Nonobstructive disease [...] this regimen. Comments: Successful right transfemoral TAVR Gqteh-qi-Gmaos with a 23 mmSapien 3 THV. We [...] insertion-coronary, access site angiography, temporary pacemaker in section laborer, intubation-non cath physician,vascular closure device, transthoracic echo and TAVR. Dr. Alirio Hudson M.D. performed the left heart catheterization, access site angiography, temporary pacemaker in section laborer, vascular closure device,transthoracic echo , TAVR [...] CHEMISTRY ORDERABLE S [facility] [place] [address] * (ABNORMAL) Point of Care Blood Gas Historical (05/12/2023 8:10 AM EDT) POC pH 7.27(Crit ical) 7.35 - 7.45 [facility] Comment:Critical value Yamel KRAUSE C Lab. POC PCO2 37 35 - 45 mmHg [facility] POC PO2 29(Critic al) 85 - 104 mmHg [facility] Comment:Critical value Yamel KRAUSE C Lab. POC Base Excess -10.0(L) -3.0 [...] Performing Organization Address City/[facility]/ZIP Co de Phone Number [facility] [place] [address] * (ABNORMAL) Lactate, whole blood, send to lab ([facility] (05/12/2023 7:00 AM EDT) Lactate WB 2.4(H) 0.5 - 2.2 mmol/L [facility] Blood 05/12/2023 7:00 AM EDT 05/12/2023 7:09 AM EDT Narrative Resulting Agency Comment Spec In Lab Radha Hollins MD CHEMISTRY ORDERABL ES Performing Organization Address City/[facility]/ZIP Co de Phone Number [facility] [place] [address] * (ABNORMAL) Comprehensive metabolic panel (non-fasting) (05/12/2023 [...] CHEMISTRY ORDERABL ES [facility] [place] [address] * (ABNORMAL) Coox2 (05/12/2023 5:08 AM EDT) pO2 Coox 24 mmHg [facility] Hgb Blood Gas 10.4(L) 11.7 - 15.5 g/dL [facility] O2HB Coox 30.7 % [facility] COHB Coox 0.3 % [facility] Comment: Nonsmokers: 0.5-1.5% COHB Smokers: Variable, but usually less than 10% Toxic: 20-30% COHB Lethal: Greater than 60% COHB METHB Coox 0.8 <=1.5 % [facility] Source Coox Mixed Venous [facility] Blood 05/12/2023 5:08 AM EDT 05/12/2023 5:08 AM EDT Radha Hollins MD CHEMISTRY ORDERABL ES [facility] [place] [address] * (ABNORMAL) Coox2 (05/12/2023 3:21 AM EDT) pO2 Coox 25 mmHg [facility] Hgb Blood Gas 10.8(L) 11.7 - 15.5 g/dL [facility] O2HB Coox 32.7 % [facility] COHB Coox 0.3 % [facility] Comment: Nonsmokers: 0.5-1.5% COHB Smokers: Variable, but usually less than 10% Toxic: 20-30% COHB Lethal: Greater than 60% COHB METHB Coox 0.7 <=1.5 % [facility] Source Coox Mixed Venous [facility] Blood 05/12/2023 3:21 AM EDT 05/12/2023 3:21 AM EDT Radha Hollins MD CHEMISTRY ORDERABL ES [facility] [place] [address] * (ABNORMAL) BLOOD GAS 2 ARTERIAL (05/12/2023 3:18 AM EDT) pH Art 7.34(L) 7.35 - 7.45 [facility] pCO2 Art 30(L) 35 - 45 mmHg [facility] pO2 Art 72(L) 85 - 104 mmHg [facility] HCO3 Art 16.0(L) 20.0 - 26.0 mmol/L [facility] [place] Art -9.8(L) -3.0 - 3.0 mmol/L [facility] Hgb Blood Gas 11.0(L) 11.7 - 15.5 g/dL [facility] O2HB Art 89.8(L) 94.0 - 97.0 % [facility] COHB Art 0.3 % [facility] Comment: Nonsmokers: 0.5-1.5% COHB Smokers: Variable, but usually less than 10% Toxic: 20-30% COHB Lethal: Greater than 60% COHB METHB Art 0.7 <=1.5 % [facility] Na Whole Blood 131(L) [...] [facility] Flow Art 5.0 LPM [facility] Blood 05/12/2023 3:18 AM EDT 05/12/2023 3:18 AM EDT Radha Hollins MD CHEMISTRY ORDERABL ES Performing Organization Address [facility] [place] [address] * (ABNORMAL) Coox2 (05/12/2023 1:14 AM EDT) pO2 Coox 28 mmHg [facility] Hgb Blood Gas 10.9(L) 11.7 - 15.5 g/dL [facility] O2HB Coox 37.3 % [facility] COHB Coox 0.3 % [facility] Comment: Nonsmokers: 0.5-1.5% COHB Smokers: Variable, but usually less than 10% Toxic: 20-30% COHB Lethal: Greater than 60% COHB METHB Coox 0.5 <=1.5 % [facility] Source Coox Mixed Venous [facility] Blood 05/12/2023 1:14 AM EDT 05/12/2023 1:14 AM EDT Radha Hollins MD CHEMISTRY ORDERABL ES Performing Organization Address [facility] Co de Phone Number [facility] [place] [address] * (ABNORMAL) BLOOD GAS 2 ARTERIAL (05/12/2023 [...] [facility] COHB Art 0.2 % [facility] Comment: Nonsmokers: 0.5-1.5% COHB Smokers: Variable, but usually less than 10% Toxic: 20-30% COHB Lethal: Greater than 60% COHB METHB Art 0.6 <=1.5 % [facility] Na Whole Blood 131(L) [...] [facility] Flow Art 5.0 LPM [facility] Blood 05/12/2023 1:06 AM EDT 05/12/2023 1:06 AM EDT Radha Hollins MD CHEMISTRY ORDERABL ES [facility] [place] [address] * (ABNORMAL) Differential, Automated (05/12/2023 1:05 AM EDT) Neutrophils % 83.3 % [facility] LABORATORY Neutr Abs (ANC) 7.49(H) 1.70 - 6.10 x10(3)/[facility] LABORATORY Lymphocytes % 7.1 % [facility] LABORATORY Lymphocytes Abs 0.6(L) 0.9 - 3.2 x10(3)/[facility] LABORATORY Monocytes % 8.9 % [facility] Monocyte Abs 0.8 0.3 - 0.9 x10(3)/[facility] LABORATORY Eosinophils % 0.0 % [facility] Eosinophils Abs 0.0 0.0 - 0.4 x10(3)/[facility] LABORATORY Basophils % 0.1 % [facility] Basophils Abs 0.0 0.0 - 0.1 x10(3)/[facility] LABORATORY Immature Gran % 0.60 % [facility] Comment: Immature granulocytes(IG's)percentage and absolute count will include metamyelocytes, myelocytes, and promyelocytes. Blood smears from CBCs yielding IG's will be scanned manually for concordance. If this scan disagrees with the automated IG or if promyelocytes are noted, a manual differential will be performed. Amanda Gran Abs 0.05(H) 0.00 - 0.04 x10(3)/[facility] LABORATORY Blood 05/12/2023 1:05 AM EDT 05/12/2023 1:15 AM EDT Narrative Resulting Agency Comment Spec In Lab Gianni Fletcher MD HEMATOLOGY ORDERABLE S [facility] [place] [address] * (ABNORMAL) Hemogram (05/12/2023 1:05 AM EDT) WBC 9.0 4.0 - 9.5 x10(3)/[facility] LABORATORY RBC 3.01(L) 4.00 - 5.21 x10(6)/[facility] LABORATORY Hemoglobin 9.8(L) 11.7 - 15.5 g/dL [facility] Hematocrit 28.7(L) 35.7 - 45.8 % [facility] MCV 95.3(H) 82.6 - 94.4 fL [facility] MCH 32.6(H) 27.1 - 32.0 pg [facility] MCHC 34.1 31.7 - 35.0 g/dL [facility] Platelets 186 145 - 357 x10(3)/[facility] LABORATORY RDWSD 43.7 37.0 - 46.0 [facility] LABORATORY RDWCV 12.7 11.5 - 14.1 % [facility] MPV 10.3 7.6 - 12.9 [facility] LABORATORY nRBC % Auto 0.0 % [facility] nRBC Abs Auto 0.000 0.000 - 0.000 x10(3)/[facility] LABORATORY Blood 05/12/2023 1:05 AM EDT 05/12/2023 1:15 AM EDT Narrative Resulting Agency Comment Spec In Lab Gianni Fletcher MD HEMATOLOGY ORDERABLE S [facility] [place] [address] * (ABNORMAL) Comprehensive metabolic panel (non-fasting) (05/12/2023 [...] CHEMISTRY ORDERABL ES [facility] [place] [address] * XR Chest One View (05/12/2023 1:00 [...] have questions please contact the health personal caregiver that requested your imaging first. ? [...] who have questions please contactthe health personal caregiver that requested your imaging first. Radha Hollins MD IMG DX ORDERABLES * (ABNORMAL) Coox2 (05/12/2023 12:30 AM EDT) pO2 Coox 22 mmHg [facility] Hgb Blood Gas 10.9(L) 11.7 - 15.5 g/dL [facility] O2HB Coox 25.1 % [facility] COHB Coox 0.3 % [facility] Comment: Nonsmokers: 0.5-1.5% COHB Smokers: Variable, but usually less than 10% Toxic: 20-30% COHB Lethal: Greater than 60% COHB METHB Coox 1.4 <=1.5 % [facility] LABORATORY Source Coox Mixed Venous [facility] Blood 05/12/2023 12:3 0 AM EDT 05/12/2023 12:30 AM EDT Radha Hollins MD CHEMISTRY ORDERABL ES [facility] [place] [address] * XR Chest One View (05/11/2023 11:45 [...] have questions please contact the health personal caregiver that requested your imaging first. ? [...] who have questions please contactthe health personal caregiver that requested your imaging first. Radha Hollins MD IMG DX ORDERABLES * (ABNORMAL) Lactate, whole blood, send to lab ([facility] (05/11/2023 7:40 PM EDT) Lactate WB 4.8(Critic al) 0.5 - 2.2 mmol/L [facility] Comment:Called by: [facility], Read back by: Magdalena Baires, Date/Time:05/11/23 19:54. Blood 05/11/2023 7:40 PM EDT 05/11/2023 7:49 PM EDT Narrative Resulting Agency Comment Spec In Lab Radha Hollins MD CHEMISTRY ORDERABL ES [facility] [place] [address] * Urine culture (05/11/2023 7:22 PM EDT) [facility] Urine Culture 50,000-99,000 cfu/ml Normal mucosal herman Susceptibilit y testing not routinely performed for Coagulase Negative Staphylococcu s species and other Gram Positive organisms from urine. [facility] Clean Catch Urine 05/11/2023 7:22 PM EDT 05/11/2023 8:50 PM EDT Narrative Resulting Agency Comment Spec In Lab Brody Kaplan ANURAG MICROBIOLOGY - GENE RAL ORDERABLES Performing Organization Address [facility] Co de Phone Number [facility] [place] [address] * (ABNORMAL) Urinalysis Microscopic Exam (05/11/2023 7:22 PM EDT) [facility] RBC UA 2 0 - 4 /HPF [facility] WBC UA >100(H) 0 - 5 /HPF [facility] Bacteria UA Occasional (A) None /HPF [facility] Squam Epith UA 5(H) <=4 /HPF [facility] Hyaline Cast UA 3(H) 0 - 2 /LPF [facility] Clean Catch Urine 05/11/2023 7:22 PM EDT 05/11/2023 7:31 PM EDT Narrative Resulting Agency Comment Spec In Lab Brody Suyapa Eusebio OSBORN URINE ORDERABLES Performing Organization Address [facility]/ZIP Co de Phone Number [facility] [place] [address] * (ABNORMAL) Urinalysis with reflex Culture (05/11/2023 7:22 PM EDT) [facility] Glucose UA Negative Negative mg/dL [facility] Leukocytes UA Moderate(A) Negative mcL [facility] Appearance UA Cloudy(A) Clear [facility] Spec [place] UA >=1.030(A) 1.005 - 1.030 [facility] Color UA Yellow Yellow [facility] Culture Reflexed Yes [facility] LAB[facility] Clean Catch Urine 05/11/2023 7:22 PM EDT 05/11/2023 7:31 PM EDT Narrative Resulting Agency Comment Spec In Lab Brody Kaplan APRN URINE ORDERABLES [facility] [place] [address] * (ABNORMAL) pro-Brain Natriuretic Peptide (05/11/2023 7:11 PM EDT) ProBNP >35,000(H) <=124 pg/mL [facility] Blood 05/11/2023 7:11 PM EDT 05/11/2023 7:26 PM EDT Narrative Resulting Agency Comment Spec In Lab Radha Hollins MD CHEMISTRY ORDERABL ES [facility] [place] [address] * (ABNORMAL) Lactate, whole blood, send to lab ([facility] (05/11/2023 2:47 PM EDT) Lactate WB 2.9(H) 0.5 - 2.2 mmol/L [facility] Blood 05/11/2023 2:47 PM EDT 05/11/2023 2:53 PM EDT Narrative Resulting Agency Comment Spec In Lab Juan Luis Gonzalez MD CHEMISTRY ORDERABLES [facility] [place] [address] * (ABNORMAL) CT Angiogram Abdomen & Pelvis [...] have questions please contact the health personal caregiver that requested your imaging first. ? [...] have questions please contact the health personal caregiver that requested your imaging first. ? [...] 610 mm2 Circumference: 88 mm Calcification: Mild Traxyjt-aj-hnfezicn height: Left: 6.2 mm Right: 5.8 mm THORACIC AORTA Description: Normal course and caliber. ??Mild diffuse atherosclerotic changes. No acute aortopathy noted. Program Manager Environmental Planning dimensions: Aortic root: 27.6 mm Max ascending [...] 610 mm2 Circumference: 88 mm Calcification: Mild Xvsnlll-gb-ezbjbojy height: Left: 6.2 mm Right: 5.8 mm THORACIC AORTA Description: Normal course and caliber. Mild diffuse atheroscleroticchanges. No acute aortopathy noted. Program Manager Environmental Planning dimensions: Aortic root: 27.6 mm Max ascending [...] who have questions please contactthe health personal caregiver that requested your imaging first. Antelmo Sharma MD IMG CT ORDERABLES * (ABNORMAL) Lactate, whole blood, send to lab ([facility] (05/11/2023 9:29 AM EDT) Pathologist [facility] Lactate WB 3.1(H) 0.5 - 2.2 mmol/L [facility] Blood 05/11/2023 9:29 AM EDT 05/11/2023 9:38 AM EDT Narrative Resulting Agency Comment Spec In Lab Juan Luis Gonzalez MD CHEMISTRY ORDERABLES [facility] [place] [address] * (ABNORMAL) Differential, Automated (05/11/2023 4:42 AM EDT) [facility] Neutrophils % 78.1 % [facility] Neutr Abs (ANC) 5.46 1.70 - 6.10 x10(3)/mc L [facility] Lymphocytes % 10.6 % [facility] Lymphocytes Abs 0.7(L) 0.9 - 3.2 x10(3)/mc L [facility] Monocytes % 9.6 % [facility] Monocyte Abs 0.7 0.3 - 0.9 x10(3)/mc L [facility] Eosinophils % 0.0 % [facility] Eosinophils Abs 0.0 0.0 - 0.4 x10(3)/mc L [facility] Basophils % 0.4 % [facility] Basophils Abs 0.0 0.0 - 0.1 x10(3)/mc L [facility]OR[facility] Immature Gran % 1.30 % [facility] Comment: Immature granulocytes(IG's)percentage and absolute count will include metamyelocytes, myelocytes, and promyelocytes. Blood smears from CBCs yielding IG's will be scanned manually for concordance. If this scan disagrees with the automated IG or if promyelocytes are noted, a manual differential will be performed. Amanda Gran Abs 0.09(H) 0.00 - 0.04 x10(3)/[facility] LABORATORY Blood 05/11/2023 4:42 AM EDT 05/11/2023 4:49 AM EDT Narrative Resulting Agency Comment Spec In Lab Klaudia Reid MD HEMATOLOGY OR DERABLES Performing Organization Address City/State/[facility] Co de Phone Number [facility] [place] [address] * (ABNORMAL) Hemogram (05/11/2023 4:42 AM EDT) WBC 7.0 4.0 - 9.5 x10(3)/[facility] LABORATORY RBC [...] HOSPITAL LABORATORY Platelets 165 145 - 357 x10(3)/[facility] LABORATORY RDWSD 43.1 37.0 - 46.0 [facility] LABORATORY RDWCV 12.7 11.5 - 14.1 % [facility] MPV 10.1 7.6 - 12.9 fL [facility] nRBC % Auto 0.0 % [facility] nRBC Abs Auto 0.000 0.000 - 0.000 x10(3)/mcL [facility] Blood 05/11/2023 4:42 AM EDT 05/11/2023 4:49 AM EDT Narrative Resulting Agency Comment Spec In Lab Klaudia Reid MD HEMATOLOGY OR DERABLES Performing Organization Address [facility]/ZIP Co de Phone Number [facility] [place] [address] * Heparin (unfractionated) Level (05/11/2023 4:42 AM [...] MD HEMATOLOGY ORDERAB LES Performing Organization Address [facility]/ZIP Co de Phone Number [facility] [place] [address] * (ABNORMAL) Comprehensive metabolic panel (non-fasting) (05/11/2023 [...] Performing Organization Address City/[facility]/ZIP Co de Phone Number [facility] [place] [address] * EKG 12 Lead (05/10/2023 1:16 PM EDT) Ventricular rate 118 BPM MUSE SYSTEM Atrial Rate 118 BPM MUSE SYSTEM P-R Interval 152 ms MUSE SYSTEM QRS Duration 104 ms MUSE SYSTEM Q-T Interval 316 ms MUSE SYSTEM QTC Calculated (Bezet) 442 ms MUSE SYSTEM Calculated P [place] 29 degrees MUSE SYSTEM Calculated R [place] 18 degrees MUSE SYSTEM Calculated T [place] -173 degrees MUSE SYSTEM INTERPRETATION Sinus tachycardia Minimal voltage criteria for LVH, may be normal variant ( [place] product ) Septal infarct , age undetermined ST & T wave abnormality, consider lateral ischemia Abnormal ECG When compared with ECG of 10-MAY-2023 07:59, Fusion complexes are no longer Present Premature ventricular complexes are no longer Present ST no longer depressed in Anterior leads Confirmed by MD Villareal Danette ([id number]) on 05/10/2023 8:47:46 PM MUSE SYSTEM 05/10/2023 1:16 PM EDT 05/10/2023 8:47 PM EDT Juan Luis Gonzalez MD ECG ORDERABLES Performing Organization Address City/[facility]/ZIP Co de Phone Number MUSE SYSTEM * Lactate, whole blood, send to lab ([facility]) (05/10/2023 11:52 AM EDT) Lactate WB 1.8 0.5 - 2.2 mmol/L [facility] Blood 05/10/2023 11:5 2 AM EDT 05/10/2023 12:13 PM EDT Narrative Resulting Agency Comment Spec In Lab Juan Luis Gonzalez MD CHEMISTRY ORDERABLES [facility] [place] [address] * XR Chest One View (05/10/2023 11:16 [...] have questions please contact the health personal caregiver that requested your imaging first. ? [...] who have questions please contactthe health personal caregiver that requested your imaging first. Juan Luis Gonzalez MD IMG DX ORDERABLES * EKG 12 Lead (05/10/2023 7:59 AM EDT) Ventricular rate 115 BPM MUSE SYSTEM Atrial Rate 115 BPM MUSE SYSTEM P-R Interval 142 ms MUSE SYSTEM QRS Duration 102 ms MUSE SYSTEM Q-T Interval 322 ms MUSE SYSTEM QTC Calculated (Bezet) 445 ms MUSE SYSTEM Calculated P [place] 36 degrees MUSE SYSTEM Calculated R [place] 28 degrees MUSE SYSTEM Calculated T [place] -119 degrees MUSE SYSTEM INTERPRETATION Sinus tachycardia with frequent Premature ventricular complexes and Fusion complexes ST & T wave abnormality, consider lateral ischemia Abnormal ECG When compared with ECG of 08-MAY-2023 15:51, No significant change was found I personally reviewed the tracing and edited the fellows interpretation Confirmed by fellow MD Welsh Hanyuan ([id number]) on 05/11/2023 6:19:54 AM Confirmed by MD Ugalde Hannah ([id number]) on 05/11/2023 3:18:56 PM MUSE SYSTEM 05/10/2023 7:59 AM EDT 05/11/2023 3:18 PM EDT Radha Hollins MD ECG ORDERABLES MUSE SYSTEM * (ABNORMAL) Differential, Automated (05/10/2023 2:28 AM EDT) Neutrophils % 77.1 % [facility] Neutr Abs (ANC) 4.01 1.70 - 6.10 x10(3)/[facility] LABORATORY Lymphocytes % 14.0 % [facility] Lymphocytes Abs 0.7(L) 0.9 - 3.2 x10(3)/[facility] LABORATORY Monocytes % 7.7 % [facility] Monocyte Abs 0.4 0.3 - 0.9 x10(3)/[facility] LABORATORY Eosinophils % 0.4 % [facility] Eosinophils Abs 0.0 0.0 - 0.4 x10(3)/[facility] LABORATORY Basophils % 0.4 % [facility] Basophils Abs 0.0 0.0 - 0.1 x10(3)/[facility] LABORATORY Immature Gran % 0.40 % [facility] Comment: Immature granulocytes(IG's)percentage and absolute count will include metamyelocytes, myelocytes, and promyelocytes. Blood smears from CBCs yielding IG's will be scanned manually for concordance. If this scan disagrees with the automated IG or if promyelocytes are noted, a manual differential will be performed. Amanda Gran Abs 0.02 0.00 - 0.04 x10(3)/[facility] LABORATORY Blood 05/10/2023 2:28 AM EDT 05/10/2023 2:57 AM EDT Narrative Resulting Agency Comment Spec In Lab Klaudia Reid MD HEMATOLOGY OR DERABLES [facility] [place] [address] * (ABNORMAL) Hemogram (05/10/2023 2:28 AM EDT) WBC 5.2 4.0 - 9.5 x10(3)/[facility] LABORATORY RBC 3.11(L) 4.00 - 5.21 x10(6)/[facility] LABORATORY Hemoglobin 10.2(L) 11.7 - 15.5 g/dL [facility] Hematocrit 30.2(L) 35.7 - 45.8 % [facility] MCV 97.1(H) 82.6 - 94.4 fL [facility] MCH 32.8(H) 27.1 - 32.0 pg [facility] MCHC 33.8 31.7 - 35.0 g/dL [facility] Platelets 151 145 - 357 x10(3)/[facility] LABORATORY RDWSD 44.9 37.0 - 46.0 [facility] LABORATORY RDWCV 12.8 11.5 - 14.1 % [facility] MPV 9.8 7.6 - 12.9 [facility] LABORATORY nRBC % Auto 0.0 % [facility] nRBC Abs Auto 0.000 0.000 - 0.000 x10(3)/[facility] LABORATORY Blood 05/10/2023 2:28 AM EDT 05/10/2023 2:57 AM EDT Narrative Resulting Agency Comment Spec In Lab Klaudia Reid MD HEMATOLOGY OR DERABLES Performing Organization Address City/State/[facility] Co de Phone Number [facility] [place] [address] * (ABNORMAL) Comprehensive metabolic panel (non-fasting) (05/10/2023 [...] CHEMISTRY ORDERABL ES [facility] [place] [address] * Heparin (unfractionated) Level (05/10/2023 2:28 AM EDT) [facility] Heparin UFH Level 0.37 IU/mL [facility] [...] HEMATOLOGY ORDERAB LES [facility] [place] [address] * (ABNORMAL) Differential, Automated (05/09/2023 4:00 AM EDT) [facility] Neutrophils % 81.7 % [facility] Neutr Abs (ANC) 5.26 1.70 - 6.10 x10(3)/mc L [facility] Lymphocytes % 10.7 % [facility] Lymphocytes Abs 0.7(L) 0.9 - 3.2 x10(3)/mc L [facility] Monocytes % 6.5 % [facility] Monocyte Abs 0.4 0.3 - 0.9 x10(3)/mc L [facility] Eosinophils % 0.5 % [facility] Eosinophils Abs 0.0 0.0 - 0.4 x10(3)/[facility] LABORATORY Basophils % 0.3 % [facility] Basophils Abs 0.0 0.0 - 0.1 x10(3)/[facility] LABORATORY Immature Gran % 0.30 % [facility] Comment: Immature granulocytes(IG's)percentage and absolute count will include metamyelocytes, myelocytes, and promyelocytes. Blood smears from CBCs yielding IG's will be scanned manually for concordance. If this scan disagrees with the automated IG or if promyelocytes are noted, a manual differential will be performed. Amanda Gran Abs 0.02 0.00 - 0.04 x10(3)/[facility] LABORATORY Blood 05/09/2023 4:00 AM EDT 05/09/2023 4:19 AM EDT Narrative Resulting Agency Comment Spec In Lab Klaudia Reid MD HEMATOLOGY OR DERABLES Performing Organization Address City/State/[facility] Co de Phone Number [facility] [place] [address] * (ABNORMAL) Hemogram (05/09/2023 4:00 AM EDT) WBC 6.4 4.0 - 9.5 x10(3)/[facility] LABORATORY RBC 3.15(L) 4.00 - 5.21 x10(6)/[facility] LABORATORY Hemoglobin 10.2(L) 11.7 - 15.5 g/dL [facility] Hematocrit 30.3(L) 35.7 - 45.8 % [facility] MCV 96.2(H) 82.6 - 94.4 fL [facility] MCH 32.4(H) 27.1 - 32.0 pg [facility] MCHC 33.7 31.7 - 35.0 g/dL [facility] Platelets 151 145 - 357 x10(3)/[facility] LABORATORY RDWSD 44.7 37.0 - 46.0 fL [facility] RDWCV 12.8 11.5 - 14.1 % [facility] MPV 9.4 7.6 - 12.9 fL [facility] nRBC % Auto 0.0 % [facility] nRBC Abs Auto 0.000 0.000 - 0.000 x10(3)/mcL [facility] Blood 05/09/2023 4:00 AM EDT 05/09/2023 4:19 AM EDT Narrative Resulting Agency Comment Spec In Lab Klaudia Reid MD HEMATOLOGY OR DERABLES Performing Organization Address [facility]/[place] [address] * Heparin (unfractionated) Level (05/09/2023 4:00 AM [...] MD HEMATOLOGY ORDERAB LES Performing Organization Address City/[facility]/ZIP Co de Phone Number [facility] [place] [address] * (ABNORMAL) Comprehensive metabolic panel (non-fasting) (05/09/2023 [...] Performing Organization Address City/[facility]/ZIP Co de Phone Number [facility] [place] [address] * (ABNORMAL) pro-Brain Natriuretic Peptide (05/08/2023 4:00 PM EDT) ProBNP 25,503(H) <=124 pg/mL [facility] Blood Venous Draw / Unknown 05/08/2023 4:00 PM EDT 05/08/2023 4:25 PM EDT Narrative Resulting Agency Comment Spec In Lab Juan Luis Gonzalez MD CHEMISTRY ORDERABLES Performing Organization Address [facility]/ZIP Co de Phone Number [facility] [place] [address] * Magnesium (05/08/2023 4:00 PM EDT) Magnesium 0.82 0.69 - 1.07 mmol/L [facility] Blood 05/08/2023 4:00 PM EDT 05/08/2023 4:06 PM EDT Narrative Resulting Agency Comment Spec In Lab Enrique Chua MD CHEMISTRY ORDERABLES Performing Organization Address [facility]/ZIP Co de Phone Number [facility] [place] [address] * Potassium (05/08/2023 4:00 PM EDT) Potassium [...] MD CHEMISTRY ORDERABL ES Performing Organization Address [facility] de Phone Number [facility] [place] [address] * Heparin (unfractionated) Level (05/08/2023 4:00 PM EDT) Pathologist [facility] Heparin UFH Level 0.43 IU/mL [facility] [...] MD HEMATOLOGY ORDERAB LES Performing Organization Address [facility] Co de Phone Number [facility] [place] [address] * EKG 12 Lead (05/08/2023 3:51 PM EDT) Ventricular rate 98 BPM MUSE SYSTEM Atrial Rate 98 BPM MUSE SYSTEM P-R Interval 150 ms MUSE SYSTEM QRS Duration 102 ms MUSE SYSTEM Q-T Interval 358 ms MUSE SYSTEM QTC Calculated (Bezet) 457 ms MUSE SYSTEM Calculated P [place] 38 degrees MUSE SYSTEM Calculated R [place] 48 degrees MUSE SYSTEM Calculated T [place] -112 degrees MUSE SYSTEM INTERPRETATION Sinus rhythm with frequent and consecutive Premature ventricular and fusion complexes Septal infarct , age undetermined ST & T wave abnormality, consider anterolateral ischemia Abnormal ECG When compared with ECG of 09-NOV-2022 11:17, T wave inversion now evident in Anterolateral leads Confirmed by MD Harshil, Enrique Bell ([id number]) on 05/10/2023 8:11:46 AM MUSE SYSTEM 05/08/2023 3:51 PM EDT 05/10/2023 8:11 AM EDT Radha Hollins MD ECG ORDERABLES MUSE SYSTEM * (ABNORMAL) Differential, Automated (05/08/2023 11:38 AM EDT) Neutrophils % 71.3 % [facility] Neutr Abs (ANC) 2.91 1.70 - 6.10 x10(3)/[facility] LABORATORY Lymphocytes % 19.1 % [facility] Lymphocytes Abs 0.8(L) 0.9 - 3.2 x10(3)/[facility] LABORATORY Monocytes % 9.0 % [facility] Monocyte Abs 0.4 0.3 - 0.9 x10(3)/[facility] LABORATORY Eosinophils % 0.2 % [facility] Eosinophils Abs 0.0 0.0 - 0.4 x10(3)/[facility] LABORATORY Basophils % 0.2 % [facility] Basophils Abs 0.0 0.0 - 0.1 x10(3)/[facility] LABORATORY Immature Gran % 0.20 % NOR[facility] [...] MD HEMATOLOGY ORDERA BLES Performing Organization Address City/State/[facility] Co de Phone Number [facility] [place] [address] * (ABNORMAL) Hemogram (05/08/2023 11:38 AM EDT) WBC 4.1 4.0 - 9.5 x10(3)/[facility] LABORATORY RBC 3.05(L) 4.00 - 5.21 x10(6)/[facility] LABORATORY Hemoglobin 10.2(L) 11.7 - 15.5 g/dL [facility] Hematocrit 29.6(L) 35.7 - 45.8 % [facility] MCV 97.0(H) 82.6 - 94.4 [facility] LABORATORY MCH 33.4(H) 27.1 - 32.0 pg [facility] MCHC 34.5 31.7 - 35.0 g/dL [facility] Platelets 136(L) 145 - 357 x10(3)/[facility] LABORATORY RDWSD 44.3 37.0 - 46.0 [facility] LABORATORY RDWCV 12.6 11.5 - 14.1 % [facility] MPV 9.4 7.6 - 12.9 [facility] LABORATORY nRBC % Auto 0.0 % [facility] nRBC Abs Auto 0.000 0.000 - 0.000 x10(3)/[facility] LAB[facility] Blood 05/08/2023 11:3 8 AM EDT 05/08/2023 11:44 AM EDT Narrative Resulting Agency Comment Spec In Lab Lincoln Sal MD HEMATOLOGY ORDERA BLES Performing Organization Address [facility] Co de Phone Number [facility] [place] [address] * TSH (05/08/2023 11:38 AM EDT) TSH 1.27 0.27 - 4.20 mcIU/mL [facility] Comment: Reference Interval (mcIU/mL): Females: ??First Trimester: 0.23-3.88 ??Second Trimester: 0.22-3.90 ??Third Trimester: 0.44-4.66 Blood 05/08/2023 11:3 8 AM EDT 05/08/2023 11:44 AM EDT Narrative Resulting Agency Comment Spec In Lab Enrique Chua MD CHEMISTRY ORDERABLES Performing Organization Address [facility] de Phone Number [facility] [place] [address] * (ABNORMAL) Phosphorus (05/08/2023 11:38 AM EDT) Phosphorus 4.7(H) 2.5 - 4.5 mg/dL [facility] Blood 05/08/2023 11:3 8 AM EDT 05/08/2023 11:44 AM EDT Narrative Resulting Agency Comment Spec In Lab Enrique Chua MD CHEMISTRY ORDERABLES Performing Organization Address [facility] Co de Phone Number [facility] [place] [address] * Magnesium (05/08/2023 11:38 AM EDT) Magnesium 0.76 0.69 - 1.07 mmol/L [facility] Blood 05/08/2023 11:3 8 AM EDT 05/08/2023 11:44 AM EDT Narrative Resulting Agency Comment Spec In Lab Enrique Chua MD CHEMISTRY ORDERABLES [facility] [place] [address] * (ABNORMAL) Basic Metabolic Panel (non-fasting) (05/08/2023 [...] Lab Enrique Chua MD CHEMISTRY ORDERABLES [facility] [place] [address] * ECHO COMPLETE (05/08/2023 11:02 AM EDT) EF 25 HEARTLAB SYSTEM Anatomical Region Laterality Modality Cardiac Other 05/08/2023 10:0 3 AM EDT Narrative 05/08/2023 11:51 AM EDT ? Echocardiogram Report Name: LASHELL THACKEROUMARIZA Mejias ?Study Date: 05/08/2023 10:03 AMBP: 92/64 mmHg ? Patient Location: CVCC^CV29^A : 1955 ? Height: 155 cm ? Account: [id number] Age: 67 yrs ? Weight: 78 kg Gender: Female ?BSA: 1.8 m2 Ordering Physician: ENRIQUE CHUA Referring Physician: MARIO ALBERTO CHIN Performed By: CHUCKIE Canchola Reason For Study: SAVR Stenosis Exam Location: [facility]. Interpretation Summary -Left ventricle is severely [...] worsening stenosis. Mitral regurgitation is similar. Procedure Complete-[id number]. Satisfactory quality. There is normal sinus rhythm. [...] Study Date: 0:03 AMBP: 92/64 mmHg [facility]A : 1955 Height: 155 cm Account: [id number] Age: 67 yrs Weight: 78 kg Gender: Female BSA: 1.8 m2 Ordering Physician: ENRIQUE CHUA Referring Physician: MARIO ALBERTO CHIN Performed By: CHUCKIE Canchola Reason For Study: SAVR Stenosis Exam Location: [facility]. Interpretation Summary -Left ventricle is severely [...] suggestsworsening stenosis. Mitral regurgitation is similar. Procedure Complete-[id number]. Satisfactory quality. There is normal sinus rhythm. 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 Mild coronary artery disease by [facility] 11/09/2022 Mixed connective tissue disease Other [...] ejection fraction Mild coronary artery disease by [facility] 11/09/2022 Stenosis of prosthetic aortic valve [...] mg aspirin chewable tablet PRN, Starting on 05/12/23 at 0853, Until 05/12/23 at 0856, Intra-Operative (Intra-Procedure), Routine Given 05/12/2023 [...] RN) 0827 (Given - Provider: Kia Gallego, VADLO) atorvastatin (Lipitor) tablet 10 mg 10 mg, [...] refused) 1149 (Patch Applied - Provider: Kia Gallego, VALDO)2349 (Patch Removed - Provider: Favian Mckeon, VALDO) [...] Favian Mckeon, VALDO)0815 (Stopped - Provider: Kia Gallego, VALDO) metoproloL tartrate (Lopressor) tablet 25 mg 25 mg, Oral, EVERY 12 HOURS SCHEDULED (2 times per day), First dose (after last modification) on Wed05/17/23 at 2100, Until Discontinued, Routine 0836 (Given - Provider: Gabino Calhoun RN)2054 (Given - Provider: Favian Mckeon RN) 0832 (Given - Provider: Kia Gallego, VALDO)2012 (Given - Provider: Favian Mckeon RN) 0827 (Given - Provider: Kia Gallego, [...] VALDO) 0827 (See Alternative - Provider: Kia Gallego, [...] RN)2053 (Given - Provider: Favian Mckeon RN) 0832 (Given - Provider: Kia Gallego, RN)2012 (Given - Provider: Favian Mckeon, VALDO) 0827 (Given - Provider: Kia Gallego, RN) [...] insomnia, Routine 0025 (Given - Provider: Favian Mckeon RN) ondansetron (pf) (Zofran) (2 mg/mL) injection 4 [...] post-op day 1 in the AM Give MS if unable to take PO, Routine Group [...] Routine documented in this encounter Care Teams Field Coordinator Relationship Specialty Start Date End Date Magdalena Acosta MD [address] [place] [address] PCP - General Family Medicine 02/05/23 documented as of this encounter
--- OUTSIDE RECORDS SUMMARY | 2024-02-24 14:01 | XMS_ITS | Encounter Summary ---
Author Organization [facility] [place] [address] Care Team Providers Care Chemical Etching Processor Name Role Phone Magdalena Acosta MD Primary [...] 11:30 AM EST Office [place] [address] Magdalena Peralta MD [facility] [place] [address] 03/01/2025 4:15 PM EDT Office Visit Dermatology at [address] [place] [address] Marek Bonilla MD [address] [place] [address] [place] [address] documented as of this encounter Visit Diagnoses Not on filedocumented in this encounter Care Teams Chemical Etching Processor Relationship Specialty Start Date End Date Magdalena Acosta MD [address] [place] [address] PCP - General Family Medicine 02/05/23 documented as of this encounter
--- OUTSIDE RECORDS SUMMARY | 2024-02-24 14:01 | XMS_ITS | Encounter Summary ---
Author Organization [facility] Erika lópez[place]yl[place] [address] Care Team Providers Care Vegetable Loader Name Role Phone Deborah Quiroga APRN Primary Care Provider [phone] Encounter Details Date Type Department Care Team (Late st Contact Info) Description 01/09/2022 Refill Dermatology at [address] [address] Lupe Connor RN Social History [...] 11:30 AM EST Office [place] [address] Magdalena Peralta MD [facility] [place] [address] 03/01/2025 4:15 PM EDT Office Visit Dermatology at [address] [address] Marek Bonilla MD [address] [place] [address] DERMATOLOGY [place], [place] [id number] documented as of this encounter Visit Diagnoses Not on filedocumented in this encounter Care Teams Vegetable Loader Relationship Specialty Start Date End Date Deborah Quiroga APRN PCP - General Family Medicine 03/24/16 02/04/23 documented as of this encounter
--- OUTSIDE RECORDS SUMMARY | 2024-02-24 14:01 | XMS_ITS | Encounter Summary ---
Author Organization [facility] Address [facility] [place] [address] Care Team Providers Care Manager Of Training Name Role Phone Deborah Quiroga ANURAG Primary Care Provider [phone] Encounter Details Date Type Department Care Team (Late st Contact Info) Description 01/14/2023 Refill Dermatology at [address] [address] Lupe Connor RN Social History [...] She would like the medication called into [facility] in [facility]. Discussed with Dr. Bonilla and he has approved refill of the Doxycycline 50 mg take one capsule by mouth daily in the evenings dispense 30 capsules with 2 refills. Patient notified. documented in this encounter Plan of Treatment Upcoming Encounters Date Type Department Care Team (Late st Contact Info) Description 06/05/2024 11:30 AM EST Office [place] [address] Magdalena Peralta MD [facility] [place] [address] 03/01/2025 4:15 PM EDT Office Visit Dermatology at [place] [address] [facility] [place] [facility] [place] [address] Marek Bonilla MD [address] [place] [address] documented as of this encounter Visit Diagnoses Not on filedocumented in this encounter Care Teams Manager Of Training Relationship Specialty Start Date End Date Deborah Quiroga APRN PCP - General Family Medicine 03/24/16 02/04/23 documented as of this encounter
--- OUTSIDE RECORDS SUMMARY | 2024-02-24 14:01 | XMS_ITS | Encounter Summary ---
Author Organization [facility] [place] [address] Care Team Providers Care Auto Appraiser Name Role Phone Junaid Deborah Shields APRN Primary Care Provider [phone] Encounter Details Date Type Department Care Team (Latest Contact Info) Description 11/09/2022 10:37 AM EDT - 11/09/2022 4:53 PM EDT Hospital Encounter [place] [address] Nitesh Escobedo MD [facility] [place] [address] Aortic valve stenosis, etiology of cardiac valve [...] Center 02/05/2023 2:30 PM Marek Bonilla MD [facility] New Medications to be Picked Up None For questions regarding this document or issues relating to this hospitalization on the Medical Service, please contact your inpatient physician through the [facility] Leaf Sticker . Issues afterhours and on weekends will be handled by the Hospitalist staff on-call. * Attachments The following attachments cannot be sent through Care Everywhere. * Coronary Angiogram: Post-op (Sri Lankan) * Right Heart Catheterization: Pulmonary Artery Catheterization: Post-op (Sri Lankan) documented in this encounter Medications at Time of Discharge Medication Sig Dispensed Refills Start Date End Date nystatin (MYCOSTATIN) 100,000 unit/gram Powder Apply topically 2 times daily as needed. 10/22/2022 OneTouch Verio test strips Strip USE DAILY 01/03/2022 Pixel QiTouch Delica Plus Lancet 33 gauge Misc USE [...] MD - 11/09/2022 11:20 AM EDT . [facility] Interventional Cardiology Adult Pre-Procedure H&P Update: Cardiac Catheterization Purnima Thacker [id number] 1955 Chief Complaint: BONILLA HPI: Purnima Thacker [...] Marrero MD Interventional Cardiology 11/09/22 11:43 AM [facility] Pager: [phone] documented in this encounter Plan of Treatment Upcoming Encounters Date Type Department Care Team (Late st Contact Info) Description 06/05/2024 11:30 AM EST Office [place] [address] Magdalena Peralta MD [facility] [place] [address] 03/01/2025 4:15 PM EDT Office Visit Dermatology at [place] [address] [place] [phone] Marek Bonilla MD [address] [place] [address] documented as of this encounter Procedures Procedure Name Priority Date/Time Associated Diagnosis Comments CARDIAC CATHETERIZATION Routine 11/10/19 1:05 PM EDT Aortic valve stenosis, etiology of cardiac valve disease unspecified Cath Plky Left Heart Cath & Arts W/Inj & Angio Img S&I ([id number]) 11/09/2022 11:51 AM EDT Aortic valve stenosis, etiology of cardiac valve disease unspecified EKG 12-LEAD Routine 11/09/2022 11:17 AM EDT Aortic valve stenosis, etiology of cardiac valve disease unspecified documented in this encounter Results * CARDIAC CATHETERIZATION (11/09/2022 1:05 PM EDT) Anatomical Region Laterality Modality Other Narrative 11/09/2022 2:01 PM EDT ?[facility] ? Cardiac Catheterization/Intervention Report ? Patient Name: Purnima Thacker. ? Procedure Date: 11/09/2022 ? A #: [id number] ? Primary Physician: Nitesh Escobedo ? Case #: [id number] ? File Name: [id number] ? Catheterization Order Number: [id number] ? [facility] ? Final Report [place], [place] ? Patient Name: ? Purnima M. Kirstie ? ID#: ?[id number] ? : ?1955 ? Procedure Date: ? [...] was designated as ASA Class III. The [facility] clinical frailty scale ?is 4: Vulnerable. ? [...] (Bezet) 457 ms MUSE SYSTEM Calculated P Candor 44 degrees MUSE SYSTEM Calculated R Candor 33 degrees MUSE SYSTEM Calculated T Candor 30 degrees MUSE SYSTEM INTERPRETATION Sinus rhythm Occasional Premature ventricular complexes Otherwise normal ECG When compared with ECG of 21-SEP-2016 12:26, Premature ventricular complexes are now Present AR interval has decreased Nonspecific T wave abnormality has replaced inverted T waves in Inferior leads I personally reviewed the tracing and edited the fellows interpretation Confirmed by fellow MD Anitha, [facility] ([id number] on 11/09/2022 6:17:28 PM Confirmed by Elsa [...] MD) documented in this encounter Care Teams Auto Appraiser Relationship Specialty Start Date End Date Deborah Quiroga, ANURAG PCP - General Family Medicine 03/24/16 02/04/23 documented as of this encounter
--- OUTSIDE RECORDS SUMMARY | 2024-02-24 14:01 | XMS_ITS | Encounter Summary ---
Author Organization Counts Include [facility] Address [facility] [place] [address] Care Team Providers Care Heating Element Repairer Name Role Phone Magdalena Acosta MD Primary Care Provider [phone] Encounter Details Date Type Department Care Team (Late st Contact Info) Description 03/29/2023 Orders Only Cardiology at [address] [phone] Ranjan Delgado MD [facility] [place] [address] Severe aortic stenosis (Primary Dx) Social History [...] 11:30 AM EST Office [place] [address] Magdalena Peralta MD [facility] [place] [address] 03/01/2025 4:15 PM EDT Office Visit Dermatology at [address] [place] [address] Marek Bonilla MD [address] [place] [address] [place] [address] Scheduled Orders Name Type Priority Associated Diagnoses [...] disorders documented in this encounter Care Teams Heating Element Repairer Relationship Specialty Start Date End Date Magdalena Acosta MD [address] [place] [address] PCP - General Family Medicine 02/05/23 documented as of this encounter
--- OUTSIDE RECORDS SUMMARY | 2024-02-24 14:01 | XMS_ITS | Encounter Summary ---
Author Organization [facility] [place] [address] Care Team Providers Care Search And Rescue Officer Name Role Phone Magdalena Acosta MD Primary Care Provider [phone] Encounter Details Date Type Department Care Team [...] 11:30 AM EST Office Visit [place] [address] Magdalena Peralta MD [facility] [place] [address] 03/01/2025 4:15 PM EDT Office Visit Dermatology at [address] [place] [address] Marek Bonilla MD [address] [place] [address] [place] [address] documented as of this encounter Visit Diagnoses Not on filedocumented in this encounter Care Teams Search And Rescue Officer Relationship Specialty Start Date End Date Magdalena Acosta MD [address] [place] [address] PCP - General Family Medicine 02/05/23 documented as of this encounter
--- OUTSIDE RECORDS SUMMARY | 2024-02-24 14:01 | XMS_ITS | Encounter Summary ---
[place] [address] Care Team Providers Care Lamp Shades Supervisor Name Role Phone Deborah Quiroga APRN Primary Care Provider [phone] Reason for Visit * Reason Comments Annual Exam Encounter Details Date Type Department Care Team (Late st Contact Info) Description 01/09/2022 3:15 PM EDT Office Visit Dermatology at [address] [address] Marek Bonilla MD [address] [facility] DERMATOLOGY [place], [place] [phone] Rosacea Social History Tobacco Use Types Packs/Day [...] cutaneous and ocular 2. Previously told by cabin furnishings installer that she had corneal tears from her [...] refills. We will [facility] this [facility] [place] 3. Continue metronidazole 0.75% gel applying every other day after washing as needed. We will give her 45 g with 5 refills. 4. Return to clinic in a year for repeat check CC: Deborah Quiroga APRN documented in this encounter Plan of Treatment Upcoming Encounters Date Type Department Care Team (Late st Contact Info) Description 06/05/2024 11:30 AM EST Office Visit [place] [address] Magdalena Peralta MD [facility] DR [place]HEUMAT[place] [address] 03/01/2025 4:15 PM EDT Office Visit Dermatology at [address] [address] Marek Bonilla MD [address] [place] [address] [place] [address] documented as of this encounter Visit Diagnoses Diagnosis Rosacea documented in this encounter Care Teams Lamp Shades Supervisor Relationship Specialty Start Date End Date Deborah Quiroga APRN PCP - General Family Medicine 03/24/16 02/04/23 documented as of this encounter
--- OUTSIDE RECORDS SUMMARY | 2024-02-24 14:01 | XMS_ITS | Encounter Summary ---
Author Organization [facility] Address [facility] [place] [address] Care Team Providers Care Pattern Puncher Name Role Phone Junaid Deborah Shields APRN Primary Care Provider [phone] Encounter Details Date Type Department Care Team (Latest Contact Info) Description 06/22/2022 10:00 AM EST Office [place] [address] Raymond Loredo MD [facility] [address] [place] [address] Raynaud's phenomenon without gangrene; Positive FRANCISCO (antinuclear [...] can be done locally or here at [facility] that the current time is not particularly [...] for surgery by Dr. Rogers here at [facility]. In addition to painful dysesthesias in her [...] over radiocarpal or ulnocarpal joints. Hands: Normal manufacturing engineer assembly and claw. SJC/TJC 0/0. Knees: Decreased flexion [...] 11:30 AM EST Office [place] [address] Magdalena Peralta MD [facility] [place] [address] 03/01/2025 4:15 PM EDT Office Visit Dermatology at [place] [address] [place] [address] Marek Bonilla MD [address] [facility] [address] documented as of this encounter Visit Diagnoses Diagnosis Raynaud's phenomenon without gangrene Positive FRANCISCO (antinuclear antibody) Other and unspecified nonspecific immunological findings Primary osteoarthritis involving multiple joints Cervical disc disorder at C6-C7 level with radiculopathy documented in this encounter Care Teams Pattern Puncher Relationship Specialty Start Date End Date Deborah Quiroga APRN PCP - General Family Medicine 03/24/16 02/04/23 documented as of this encounter
--- OUTSIDE RECORDS SUMMARY | 2024-02-24 14:01 | XMS_ITS | Encounter Summary ---
Author Organization [facility] Address [facility] [place] [address] Care Team Providers Care Director Of Supply Chain Name Role Phone Ashley Quirogazac Shields APRN Primary Care Provider [phone] Reason for Referral * Consultation (Routine) - Closed Specialty Diagnoses / Procedures Referred By Contac t Referred To Contact Neurology Diagnoses Neck pain Popeye Rogers MD [facility] [place] [address] Kyra Haas MD [facility] [address] [address] Referral ID Status Reason Start Date Expiration Date V isits Requested Visits Authorized [id number] Closed Consult, Test & Treat 06/29/2022 06/29/2023 1 1 Reason for Visit * Reason Comments Neck Pain Weak in both arms, p ain and tingling in arms and hands Encounter Details Date Type Department Care Team (Late st Contact Info) Description 06/29/2022 10:20 AM EST Office Visit [facility] [place] [address] Popeye Rogers MD [facility] [place] [address] Neck pain Social History Tobacco Use Types [...] have EMG and nerve conduction studies in [place] that showed carpal tunnel syndrome. I do not have a copy of that report. documented in this encounter Plan of Treatment Upcoming Encounters Date Type Department Care Team (Late st Contact Info) Description 06/05/2024 11:30 AM EST Office [place] [address] Magdalena Peralta MD [facility] [place] [address] 03/01/2025 4:15 PM EDT Office Visit Dermatology at [address] [place] [address] Marek Bonilla MD [address] [place] [address] [place] [address] Scheduled Referrals Name Type Priority Associated Diagnoses Orde r Schedule Referral to Neurology Outpatient Referral Routine Neck pain Ordered: 06/29/2022 documented as of this encounter Visit Diagnoses Diagnosis Neck pain Cervicalgia documented in this encounter Care Teams Director Of Supply Chain Relationship Specialty Start Date End Date Deborah Quiroga APRN PCP - General Family Medicine 03/24/16 02/04/23 documented as of this encounter
--- OUTSIDE RECORDS SUMMARY | 2024-02-24 14:01 | XMS_ITS | Encounter Summary ---
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 documented in this encounter Plan of Treatment Upcoming Encounters Date Type Department Care Team (Late st Contact Info) Description 06/05/2024 11:30 AM EST Office [place] [address] Magdalena Peralta MD [facility] [place] [address] 03/01/2025 4:15 PM EDT Office Visit Dermatology at [place] [address] [facility] [place] [address] aMrek Bonilla MD [address] [facility] [place] [address] documented as of this encounter Visit Diagnoses Not on filedocumented in this encounter Care Teams Terminal Block Assembler Relationship Specialty Start Date End Date Magdalena Acosta MD [address] [place] [address] PCP - General Family Medicine 02/05/23 documented as of this encounter
--- OUTSIDE RECORDS SUMMARY | 2024-02-24 14:01 | XMS_ITS | Encounter Summary ---
[place] [address] Care Team Providers Care Daycare Teacher Name Role Phone Magdalena Acosta MD Primary Care Provider [phone] Reason for Visit * Reason Comments Suture / Staple Removal Encounter Details Date Type Department Care Team (Late st Contact Info) Description 02/16/2023 10:00 AM EDT Office Visit Dermatology at [address] [phone] Marek Bonilla MD [address] [facility] DERMATOLOGY [place], [place] [phone] Visit for suture removal Social History Tobacco [...] 11:30 AM EST Office [place] [address] Magdalena Peralta MD [facility] [place] [address] 03/01/2025 4:15 PM EDT Office Visit Dermatology at [place] [address] [facility] [place] [phone] Marek Bonilla MD [address] [facility] [place] [address] documented as of this encounter Visit Diagnoses Diagnosis Visit for suture removal Encounter for removal of sutures documented in this encounter Care Teams Daycare Teacher Relationship Specialty Start Date End Date Magdalena Acosta MD [address] [place] [address] PCP - General Family Medicine 02/05/23 documented as of this encounter
--- OUTSIDE RECORDS SUMMARY | 2024-02-24 14:01 | XMS_ITS | Encounter Summary ---
Author Organization [facility] Address [facility] [place] [address] Care Team Providers Care Manager Eligibility Name Role Phone Magdalena Acosta MD Primary Care Provider [phone] Encounter Details Date Type Department Care Team (Late st Contact Info) Description 02/17/2023 2:00 PM EDT Office [place] [address] Alirio Esparza MD [facility] [place] [address] Aortic valve stenosis, etiology of cardiac valve [...] AM EST Office [place] [address] Magdalena Peralta MD [facility] [place] [address] 03/01/2025 4:15 PM EDT Office Visit Dermatology at [place] [address] [facility] [place] [address] Marek Bonilla MD [address] [facility] DERMATOLOGY [place], [place] [phone] documented as of this encounter Visit Diagnoses Diagnosis Aortic valve stenosis, etiology of cardiac valve disease unspecified documented in this encounter Care Teams Manager Eligibility Relationship Specialty Start Date End Date Magdalena Acosta MD [address] [place] [address] PCP - General Family Medicine 02/05/23 documented as of this encounter
--- OUTSIDE RECORDS SUMMARY | 2024-02-24 14:01 | XMS_ITS | Encounter Summary ---
Author Organization [facility] [place] [address] Care Team Providers Care Cluster Bore Operator Name Role Phone Deborah Quiroga APRN Primary Care Provider [phone] Encounter Details Date Type Department Care Team (Late st Contact Info) Description 06/17/2022 Ancillary Procedure [place] [phone] Deborah Quiroga TABULATING CLERK [address] [facility] 2 [place], [place] [address] Social History Tobacco Use Types Packs/Day Years [...] AM EST Office [place] [phone] Magdalena Peralta MD [facility] [place] [address] 03/01/2025 4:15 PM EDT Office Visit Dermatology at [address] [place] [phone] Marek Bonilla MD [address] [facility] [place] [address] documented as of this encounter Procedures Procedure Name Priority Date/Time Associated Diagnosis Comments FILM LIBRARY STORAGE ONLY MR SPINE Routine 06/17/2022 12:00 AM EST documented in this encounter Results * Film Library- Storage Only MR Spine (06/17/2022 12:00 AM EST) Narrative [facility] - 06/18/2022 11:00 AM EST This exam is auto-finalizing. It's purpose is for storage only. Deborah Quiroga APRN IMGerman FILM LIBRARY OR DERABLES Performing Organization Address City/State/[facility] Co de Phone Number [place], [place] documented in this encounter Visit Diagnoses Not on filedocumented in this encounter Care Teams Cluster Bore Operator Relationship Specialty Start Date End Date Deborah Quiroga APRN PCP - General Family Medicine 03/24/16 02/04/23 documented as of this encounter
--- OUTSIDE RECORDS SUMMARY | 2024-02-24 14:01 | XMS_ITS | Encounter Summary ---
Author Organization [facility] Address [facility] [place] [address] Care Team Providers Care Nc Machinist Name Role Phone Magdalena Acosta MD Primary Care Provider [phone] Encounter Details Date Type Department Care Team (Latest Contact Info) Description 03/18/2023 2:30 PM EDT Laboratory Appointment Lab [place] [phone] Positive FRANCISCO (antinuclear antibody) Social History Tobacco [...] 11:30 AM EST Office [place] [phone] Magdalena Peralta MD [facility] [place] [address] 03/01/2025 4:15 PM EDT Office Visit Dermatology at [address] [phone] Marek Bonilla MD [address] [facility] DERMATOLOGY [place], [place] [phone] documented as of this encounter Procedures Procedure Name Priority Date/Time Associated Diagnosis Comments HC PCH ANATITRE (ANDPATTERN) Routine 03/18/2023 2:14 PM EDT Positive FRANCISCO (antinuclear antibody) HC C-REACTIVE PROTEIN Routine 03/18/2023 2:14 PM EDT Positive FRANCISCO (antinuclear antibody) HC DNA AB DS ([place]) Routine 03/18/2023 2:14 PM EDT Positive FRANCISCO [...] 2:14 PM EDT) Neutrophils % 71.2 % [facility] Neutr Abs (ANC) 2.26 1.70 - 6.10 x10(3)/mc L [facility] Lymphocytes % 18.2 % [facility] Lymphocytes Abs 0.6(L) 0.9 - 3.2 x10(3)/[facility] Monocytes % 9.7 % [facility] Monocyte Abs 0.3 0.3 - 0.9 x10(3)/[facility] Eosinophils % 0.3 % [facility] Eosinophils Abs 0.0 0.0 - 0.4 x10(3)/[facility] Basophils % 0.6 % [facility] Basophils Abs 0.0 0.0 - 0.1 x10(3)/[facility] Immature Gran % 0.00 % [facility] Comment: Immature granulocytes(IG's)percentage and absolute count will include metamyelocytes, myelocytes, and promyelocytes. Blood smears from CBCs yielding IG's will be scanned manually for concordance. If this scan disagrees with the automated IG or if promyelocytes are noted, a manual differential will be performed. Amanda Gran Abs 0.00 0.00 - 0.04 x10(3)/[facility] Blood 03/18/2023 2:14 PM EDT 03/18/2023 2:24 PM EDT Narrative Resulting Agency Comment Spec In Lab Magdalena Peralta MD HEMATOLOGY ORDERABLE S Performing Organization Address City/State/[facility] Co de Phone Number [facility] [place] [address] * (ABNORMAL) Hemogram (03/18/2023 2:14 PM EDT) WBC 3.2(L) 4.0 - 9.5 x10(3)/[facility] RBC 3.44(L) 4.00 - 5.21 x10(6)/[facility] Hemoglobin 11.1(L) 11.7 - 15.5 g/dL [facility] Hematocrit 32.9(L) 35.7 - 45.8 % [facility] MCV 95.6(H) 82.6 - 94.4 fL [facility] MCH 32.3(H) 27.1 - 32.0 pg [facility] MCHC 33.7 31.7 - 35.0 g/dL [facility] Platelets 144(L) 145 - 357 x10(3)/[facility] RDWSD 42.6 37.0 - 46.0 [facility] RDWCV 12.3 11.5 - 14.1 % [facility] MPV 9.4 7.6 - 12.9 [facility] nRBC % Auto 0.0 % [facility] nRBC Abs Auto 0.000 0.000 - 0.000 x10(3)/[facility] Blood 03/18/2023 2:14 PM EDT 03/18/2023 2:24 PM EDT Narrative Resulting Agency Comment Spec In Lab Magdalena Peralta MD HEMATOLOGY ORDERABLE S Performing Organization Address City/[facility]/[place] [address] * (ABNORMAL) Sedimentation rate (03/18/2023 2:14 PM EDT) Sed Rate 68(H) 2 - 39 mm/hr [facility] Comment: Effective July 12, 2019 new capillary photometric technology has resulted in a change in reference ranges. It is recommended that each ESR result be reviewed with its own age appropriate reference range. Blood 03/18/2023 2:14 PM EDT 03/18/2023 2:24 PM EDT Narrative Resulting Agency Comment Spec In Lab Kia Viramontes DO HEMATOLOGY ORDERAB LES [facility] [place] [address] * CRP, acute inflammation (03/18/2023 2:14 PM EDT) CRP 3.0 <=4.9 mg/L [facility] Blood 03/18/2023 2:14 PM EDT 03/18/2023 2:24 PM EDT Narrative Resulting Agency Comment Spec In Lab Kia D Wander DO CHEMISTRY ORDERABL ES Performing Organization Address City/[facility]/ZIP Co de Phone Number [facility] [place] [address] * C3 Complement (03/18/2023 2:14 PM EDT) C3 Complement 142 90 - 180 mg/dL [facility] Blood 03/18/2023 2:14 PM EDT 03/18/2023 2:24 PM EDT Narrative Resulting Agency Comment Spec In Lab Kia D Wander DO CHEMISTRY ORDERABL ES Performing Organization Address [facility]/ZIP Co de Phone Number [facility] [place] [address] * C4 Complement (03/18/2023 2:14 PM EDT) C4 Complement 30 10 - 40 mg/dL [facility] Blood 03/18/2023 2:14 PM EDT 03/18/2023 2:24 PM EDT Narrative Resulting Agency Comment Spec In Lab Kia D Wander DO CHEMISTRY ORDERABL ES Performing Organization Address City/[facility]/ZIP Co de Phone Number [facility] [place] [address] * CK (03/18/2023 2:14 PM EDT) CK, Total 38 0 - 160 unit/L [facility] Blood 03/18/2023 2:14 PM EDT 03/18/2023 2:24 PM EDT Narrative Resulting Agency Comment Spec In Lab Kia Viramontes DO CHEMISTRY ORDERABL ES Performing Organization Address [facility] Co de Phone Number [facility] [place] [address] * DNA Antibody (Double-Stranded) (03/18/2023 2:14 PM EDT) dsDNA Ab <0.6 <=15.0 IU/mL [facility] Comment: <10 negative 10-15 equivocal >15 positive This dsDNA antibody result was generated using a fluoroenzyme immunoassay on the [employer] 250 analyzer. This quantitative test is designed to detect IgG antibodies directed against double stranded DNA in human serum. The presence of antibodies that recognize dsDNA is a highly specific marker for systemic lupus erythematosus. Please note that as of 05/26/2022 that this testing is performed by the Special [facility] Laboratory at [facility]. This change in testing location is associated with a change is testing method and reference intervals. Please review the results of this test in association with the posted reference intervals. Blood 03/18/2023 2:14 PM EDT 03/19/2023 7:19 AM EDT Narrative Resulting Agency Comment Spec In Lab Kia Viramontes DO CHEMISTRY ORDERABL Performing Organization Address [facility] de Phone Number [facility] [place] [address] * (ABNORMAL) FRANCISCO Ab by IFA (03/18/2023 2:14 PM EDT) Antinuclear Ab Test ? Result ?Flag ??Unit ??RefValue Antinuclear Ab, HEp-2 ?Positive 1:2560 ??@ ?<1:80 (Negative) ??Substrate, S ? ADDITIONAL INFORMATION --------- ?Method: Immunofluorescence using HEp-2 cellular substrate. ??FRANCISCO Titer: ? 1:2560 ??FRANCISCO Pattern: ? Speckled ?Test Performed by: ?[facility] ?[address] [place] [address] ?[place]ding Operator: Raymond Chaudhry M.D. Ph.D.; CLIA# [id number] ([id number]) [facility] Blood 03/18/2023 2:14 PM EDT 03/18/2023 3:02 PM EDT Narrative Resulting Agency Comment Spec In Lab Kia Viramontes DO CHEMISTRY ORDERABL ES [facility] [place] [address] * Comprehensive metabolic panel (non-fasting) (03/18/2023 2:14 PM EDT) Glucose Lvl 93 65 - 199 mg/dL [facility] Comment:Diabetes: >=200 mg/d L plus symptoms BUN 18 8 - 18 mg/dL [facility] Creatinine 0.99 0.70 - 1.20 mg/dL [facility] Sodium 141 135 - 145 mmol/L [facility] Potassium 4.5 3.5 - 5.0 mmol/L [facility] Comment: Please note: ??Patients with WBC >100,000 may have falsely elevated Potassium levels. ??For accurate Potassium quantification in these patients send serum separator tube (gold top) for subsequent determinations. ??Contact the Clinical Chemistry Laboratory if there are any questions. Chloride 106 98 - 107 mmol/L [facility] CO2 24 22 - 31 mmol/L [facility] Anion Gap 11 5 - 15 mmol/L [facility] Calcium 10.0 8.5 - 10.5 mg/dL [facility] Total Protein 7.3 6.1 - 8.0 g/dL [facility] Albumin 4.3 3.2 - 5.2 g/dL [facility] AST 26 0 - 30 unit/L [facility] ALT 11 0 - 30 unit/L [facility] Alk Phos 91 35 - 105 unit/L [facility] Total Bilirubin 0.4 0.2 - 1.3 mg/dL [facility] Estimated GFR 62 >=60 mL/min/1. 73 m?? [facility] [...] Lab Kia Viramontes DO CHEMISTRY ORDERABL ES [facility] [place] [address] documented in this encounter Visit Diagnoses Diagnosis Positive FRANCISCO (antinuclear antibody) Other and unspecified nonspecific immunological findings documented in this encounter Care Teams Nc Machinist Relationship Specialty Start Date End Date Magdalena Acosta MD [address] [place] [address] PCP - General Family Medicine 02/05/23 documented as of this encounter
--- OUTSIDE RECORDS SUMMARY | 2024-02-24 14:01 | XMS_ITS | Encounter Summary ---
Author Organization [facility] [place] [address] Care Team Providers Care Hematologist Name Role Phone Magdalena Acosta MD Primary Care Provider [phone] Encounter Details Date Type Department Care Team [...] 11:30 AM EST Office [place] [address] Magdalena Peralta MD [facility] [place] [address] 03/01/2025 4:15 PM EDT Office Visit Dermatology at [address] [place] [phone] Marek Bonilla MD [address] [place] [address] [place] [address] documented as of this encounter Visit Diagnoses Not on filedocumented in this encounter Care Teams Hematologist Relationship Specialty Start Date End Date Magdalena Acosta MD [address] [place] [address] PCP - General Family Medicine 02/05/23 documented as of this encounter
--- OUTSIDE RECORDS SUMMARY | 2024-02-24 14:01 | XMS_ITS | Encounter Summary ---
Author Organization [place] [address] Care Team Providers Care Falsework Builder Name Role Phone Deborah Quiroga APRN Primary Care Provider [phone] Encounter Details Date Type Department Care Team (Latest Contact Info) Description 07/03/2022 1:36 PM EST - 07/03/2022 11:59 PM EST Hospital Encounter [place]ematology [place] [address] Discharge Disposition: Home Social History Tobacco Use [...] 11:30 AM EST Office [place] [address] Magdalena Peralta MD [facility] [place] [address] 03/01/2025 4:15 PM EDT Office Visit Dermatology at [place] [address] [facility] [place] [address] Marek Bonilla MD [address] [facility] [place] [address] documented as of this encounter Procedures Procedure Name Priority Date/Time Associated Diagnosis Comments FOLATE, SERUM Routine 07/03/2022 1:59 PM EST VITAMIN B12 Routine 07/03/2022 1:59 PM EST documented in this encounter Results * Folate, serum (07/03/2022 1:59 PM EST) Folate Lvl >20.0 4.8 - 24.2 ng/mL [facility] Blood Venous Draw / Unknown 07/03/2022 1:59 PM EST 07/03/2022 2:13 PM EST Narrative Resulting Agency Comment Spec In Lab Markel Borjas MD CHEMISTRY ORDERABL ES Performing Organization Address City/[facility]/ZIP Co de Phone Number [facility] [place] [address] * Vitamin B12 (07/03/2022 1:59 PM EST) Vitamin B-12 449 232 - 1,245 pg/mL [facility] Blood Venous Draw / Unknown 07/03/2022 1:59 PM EST 07/03/2022 2:13 PM EST Narrative Resulting Agency Comment Spec In Lab Markel Borjas MD CHEMISTRY ORDERABL ES Performing Organization Address [facility]/ZIP Co de Phone Number [facility] [place] [address] documented in this encounter Visit Diagnoses Not on filedocumented in this encounter Care Teams Falsework Builder Relationship Specialty Start Date End Date Deborah Quiroga APRN PCP - General Family Medicine 03/24/16 02/04/23 documented as of this encounter
--- OUTSIDE RECORDS SUMMARY | 2024-02-24 14:01 | XMS_ITS | Encounter Summary ---
Author Organization [facility] [place] [address] Care Team Providers Care Canal Boat Captain Name Role Phone Magdalena Acosta MD Primary Care Provider [phone] Encounter Details Date Type Department Care Team [...] EST Office [place] [address] Magdalena Peralta MD [facility] [place] [address] 03/01/2025 4:15 PM EDT Office Visit Dermatology at [address] [place] [phone] Marek Bonilla MD [address] [place] [address] [place] [address] documented as of this encounter Visit Diagnoses Not on filedocumented in this encounter Care Teams Canal Boat Captain Relationship Specialty Start Date End Date Magdalena Acosta MD [address] [place] [address] PCP - General Family Medicine 02/05/23 documented as of this encounter
--- OUTSIDE RECORDS SUMMARY | 2024-02-24 14:01 | XMS_ITS | Encounter Summary ---
Author Organization [facility] [place] [address] Care Team Providers Care Child Care Coordinator Name Role Phone Deborah Quiroga APRN Primary Care Provider [phone] Encounter Details Date Type Department Care Team [...] 11:30 AM EST Office Visit [place] [address] Magdalena Peralta MD [facility] [place] [address] 03/01/2025 4:15 PM EDT Office Visit Dermatology at [address] [place] [phone] Marek Bonilla MD [address] [place] [address] [place] [address] documented as of this encounter Visit Diagnoses Not on filedocumented in this encounter Care Teams Child Care Coordinator Relationship Specialty Start Date End Date Deborah Quiroga APRN PCP - General Family Medicine 03/24/16 02/04/23 documented as of this encounter
--- OUTSIDE RECORDS SUMMARY | 2024-02-24 14:01 | XMS_ITS | Encounter Summary ---
Author Organization [facility] [place] [address] Care Team Providers Care Glass Cut Off Tender Name Role Phone Magdalena Acosta MD Primary Care Provider [phone] Reason for Visit * Consultation (Routine) - Authorized Specialty Diagnoses / Procedures Referred By Contkrystle t Referred To Contact Rheumatology Diagnoses Weakness Kyra Haas MD [facility] [address] [place] [address] [facility] Rheumatology [address] [place] [phone] Referral ID Status Reason Start Date Expiration Date Visits Requested Visits Authorized [id number] Authorized Consult, Test & Treat PCP Updated and/or Approved 02/25/2023 02/25/2024 6 6 Encounter Details Date Type Department Care Team (Late st Contact Info) Description 03/18/2023 1:00 PM EDT Office [place] [address] Kia Viramontes DO [facility] [place] [address] Magdalena Peralta MD [facility] [address] Positive FRANCISCO (antinuclear antibody) Social [...] 1:5120 speckled VIC negative Myositis panel with NETWORK ANNOUNCER ab 149.1 (positive) Anti U1RNP IgG 119 [...] a chair without assistance of upper extremities. Mud Cleaner Operator strength 3+/5 bilaterally; otherwise large muscle groups [...] due to risk of retinal toxicity with prison Plaquenil use, which she already does. Recommendations: #mixed connective tissue disease Start hydroxychloroquine 200 mg qd Labs today: repeat FRANCISCO, dsDNA, complements, CBC, CMP, CK, ESR, CRP Follow up 1 month The patient was seen and discussed with Dr. Wander Peralta MD Rheumatology Fellow Pager: [phone] CC: Kyra Haas * Kia Viramontes DO - 03/18/2023 1:00 PM EDT ATTENDING ADDENDUM The patient's history was reviewed, and I interviewed and examined the patient with Dr. Peralta. Catalina with her summary, findings, and plan. documented in this encounter Plan of Treatment Upcoming Encounters Date Type Department Care Team (Late st Contact Info) Description 06/05/2024 11:30 AM EST Office [place] [address] Magdalena Peralta MD [facility] [place] [address] 03/01/2025 4:15 PM EDT Office Visit Dermatology at [place] [address] [place] [address] Marek Bonilla MD [address] [facility] [place] [address] documented as of this encounter Results * Comprehensive metabolic panel (non-fasting) (03/18/2023 2:14 PM EDT) [facility] Glucose Lvl 93 65 - 199 [...] CHEMISTRY ORDERABL ES [facility] [place] [address] * (ABNORMAL) FRANCISCO Ab by IFA (03/18/2023 2:14 PM EDT) Antinuclear Ab Test ? Result ?Flag ??Unit ??RefValue Antinuclear Ab, HEp-2 ?Positive 1:2560 ??@ ?<1:80 (Negative) ??Substrate, S ? ADDITIONAL INFORMATION --------- ?Method: Immunofluorescence using HEp-2 cellular substrate. ??FRANCISCO Titer: ? 1:2560 ??FRANCISCO Pattern: ? Speckled ?Test Performed by: ?[facility] ?[address] [place] [address] ?Band Splitter: Raymond Chaudhry M.D. Ph.D.; CLIA# [id number] (A) [facility] Blood 03/18/2023 2:14 PM EDT 03/18/2023 3:02 PM EDT Narrative Resulting Agency Comment Spec In Lab Kia Viramontes DO CHEMISTRY ORDERABL ES [facility] [place] [address] * DNA Antibody (Double-Stranded) (03/18/2023 2:14 PM EDT) dsDNA Ab <0.6 <=15.0 IU/mL [facility] Comment: <10 negative 10-15 equivocal >15 positive This dsDNA antibody result was generated using a fluoroenzyme immunoassay on the Sciona 250 analyzer. This quantitative test is designed to detect IgG antibodies directed against double stranded DNA in human serum. The presence of antibodies that recognize dsDNA is a highly specific marker for systemic lupus erythematosus. Please note that as of 05/26/2022 that this testing is performed by the Special [facility] Laboratory at [facility] This change in testing location is associated with a change is testing method and reference intervals. Please review the results of this test in association with the posted reference intervals. Blood 03/18/2023 2:14 PM EDT 03/19/2023 7:19 AM EDT Narrative Resulting Agency Comment Spec In Lab Kia Mossew DO CHEMISTRY ORDERABL ES Performing Organization Address [facility] Co de Phone Number [facility] [place] [address] * CK (03/18/2023 2:14 PM EDT) CK, Total 38 0 - 160 unit/L [facility] Blood 03/18/2023 2:14 PM EDT 03/18/2023 2:24 PM EDT Narrative Resulting Agency Comment Spec In Lab Kia Erika Wander DO CHEMISTRY ORDERABL ES Performing Organization Address [facility] Co de Phone Number [facility] [place] [address] * C4 Complement (03/18/2023 2:14 PM EDT) C4 Complement 30 10 - 40 mg/dL [facility] Blood 03/18/2023 2:14 PM EDT 03/18/2023 2:24 PM EDT Narrative Resulting Agency Comment Spec In Lab Kia Erika Wander DO CHEMISTRY ORDERABL ES Performing Organization Address [facility] Co de Phone Number [facility] [place] [address] * C3 Complement (03/18/2023 2:14 PM EDT) C3 Complement 142 90 - 180 mg/dL [facility] Blood 03/18/2023 2:14 PM EDT 03/18/2023 2:24 PM EDT Narrative Resulting Agency Comment Spec In Lab Kia D Wander DO CHEMISTRY ORDERABL ES Performing Organization Address [facility]/ZIP Co de Phone Number [facility] [place] [address] * CRP, acute inflammation (03/18/2023 2:14 PM EDT) CRP 3.0 <=4.9 mg/L [facility] Blood 03/18/2023 2:14 PM EDT 03/18/2023 2:24 PM EDT Narrative Resulting Agency Comment Spec In Lab Kia Erika Wander HALL CHEMISTRY ORDERABL ES Performing Organization Address [facility] Co de Phone Number [facility] [place] [address] * (ABNORMAL) Sedimentation rate (03/18/2023 2:14 PM [...] Mossew HEMATOLOGY ORDERAB LES Performing Organization Address [facility] Co de Phone Number [facility] [place] [address] documented in this encounter Visit Diagnoses Diagnosis Positive FRANCISCO (antinuclear antibody) Other and unspecified nonspecific immunological findings documented in this encounter Care Teams Glass Cut Off Tender Relationship Specialty Start Date End Date Magdalena Acosta MD [address] [place] [address] PCP - General Family Medicine 02/05/23 documented as of this encounter
--- OUTSIDE RECORDS SUMMARY | 2024-02-24 14:01 | XMS_ITS | Encounter Summary ---
Author Organization [facility] [place] [address] Care Team Providers Care Pantomimist Name Role Phone Deborah Quiroga APRN Primary Care Provider [phone] Reason for Referral * Consultation (Routine) - Closed Specialty Diagnoses / Procedures Referred By Crispin maxwell Referred To Contact Neurology Diagnoses Polyneuropathy Deborah Quiroga APRN [address] [place] [address] [facility] [address] [place] [phone] Referral ID Status Reason Start Date Expiration Date V isits Requested Visits Authorized [id number] Closed Consult, Test & Treat 10/29/2022 10/29/2023 1 1 Encounter Details Date Type Department Care Team (Latest Contact Info) Description 10/29/2022 Transcribe Orders eDH Incoming Referrals [phone] Deborah Quiroga APRN [address] [place] [address] Polyneuropathy (Primary Dx) Social History [...] 11:30 AM EST Office [place] [address] Magdalena Peralta MD [facility] [place] [address] 03/01/2025 4:15 PM EDT Office Visit Dermatology at [place] [address] [place] [address] Marek Bonilla MD [address] [place] [address] [place] [address] Scheduled Referrals Name Type Priority Associated Diagnoses Orde r Schedule Referral to Neurology Outpatient Referral Routine Polyneuropathy Ordered: 10/29/2022 documented as of this encounter Visit Diagnoses Diagnosis Polyneuropathy- Primary Unspecified hereditary and idiopathic peripheral neuropathy documented in this encounter Care Teams Pantomimist Relationship Specialty Start Date End Date Deborah Quiroga APRN PCP - General Family Medicine 03/24/16 02/04/23 documented as of this encounter
--- OUTSIDE RECORDS SUMMARY | 2024-02-24 14:01 | XMS_ITS | Encounter Summary ---
Author Organization [facility] [place] [address] Care Team Providers Care Filler Operator Name Role Phone Deborah Quiroga ANURAG Primary Care Provider [phone] Encounter Details Date Type Department Care Team (Late st Contact Info) Description 11/02/2022 Orders Only [place] [address] Emily Lyons [place] [facility] [place] [address] Aortic valve stenosis, etiology of cardiac valve [...] 11:30 AM EST Office [place] [address] Magdalena Peralta MD [facility] [place] [address] 03/01/2025 4:15 PM EDT Office Visit Dermatology at [address] [phone] Marek Bonilla MD [address] [facility] [place] [address] documented as of this encounter Visit Diagnoses Diagnosis Aortic valve stenosis, etiology of cardiac valve disease unspecified documented in this encounter Care Teams Filler Operator Relationship Specialty Start Date End Date Deborah Quiroga APRN PCP - General Family Medicine 03/24/16 02/04/23 documented as of this encounter
--- OUTSIDE RECORDS SUMMARY | 2024-02-24 14:01 | XMS_ITS | Encounter Summary ---
[place] [address] Care Team Providers Care Mortgage Loan Officer Originator Name Role Phone Magdalena Acosta MD Primary Care Provider [phone] Reason for Visit * Reason Comments Annual Exam Encounter Details Date Type Department Care Team (Late st Contact Info) Description 02/05/2023 2:30 PM EDT Office Visit Dermatology at [address] [address] Marek Bonilla MD [address] [facility] [address] Rosacea; Ocular rosacea; Nevus Social History Tobacco [...] cutaneous and ocular 2. Previously told by teacher assistant that she had corneal tears from her [...] 11:30 AM EST Office [place] [address] Magdalena Peralta MD [facility] [place] [address] 03/01/2025 4:15 PM EDT Office Visit Dermatology at [address] [address] Mraek Bonilla MD [address] [place] [address] [place] [address] documented as of this encounter Visit Diagnoses Diagnosis Rosacea Ocular rosacea Rosacea Nevus Benign neoplasm of skin, site unspecified documented in this encounter Care Teams Mortgage Loan Officer Originator Relationship Specialty Start Date End Date Magdalena Acosta MD [address] [place] [address] PCP - General Family Medicine 02/05/23 documented as of this encounter
--- OUTSIDE RECORDS SUMMARY | 2024-02-24 14:01 | XMS_ITS | Encounter Summary ---
Author Organization [facility] [place] [address] Care Team Providers Care Medication Coordinator Name Role Phone Magdalena Acosta MD Primary Care Provider [phone] Encounter Details Date Type Department Care Team (Latest Contact Info) Description 02/05/2023 9:33 PM EDT - 02/05/2023 11:59 PM EDT Hospital [place] [phone] Discharge Disposition: Home Social History Tobacco Use [...] mg every 6 hours when experiencing pain 1-05/11.). 30 tablet 5 09/25/2016 multivitamin (THERAGRAN) Tablet Take 1 tablet by mouth daily. atorvastatin (LIPITOR) 10 mg Tablet Take 10 mg by mouth daily. aspirin 81 mg EC tablet Take 81 mg by mouth daily. cyanocobalamin, Vitamin B-12, (Vitamin B-12) 1,000 mcg tablet Take 500 mcg by mouth daily. 02/22/2024 doxycycline (Vibramycin) 50 mg capsule Take one [...] 11:30 AM EST [place] [address] Magdalena Peralta MD [facility] [place] [address] 03/01/2025 4:15 PM EDT Office Visit Dermatology at [address] [place] [address] Marek Bonilla MD [address] [facility] [place] [address] documented as of this encounter Procedures Procedure Name Priority Date/Time Associated Diagnosis Comments SURGICAL PATHOLOGY REPORT Routine 02/05/2023 3:00 PM EDT documented in this encounter Results * Surgical Pathology Report (02/05/2023 3:00 PM EDT) FINAL DIAGNOSIS (AP) [id number] ? Location: OPW The signing pathologist has (i) examined the relevant preparation(s) for the specimen(s) and (ii) rendered or confirmed the diagnosis(es). . ?Surgical Pathology DIAGNOSIS Left upper back, skin punch biopsy: - ??Compound dysplastic ??melanocytic nevus with moderate atypia, transected at peripheral specimen edges ?? (see discussion) Electronically signed by: ?Vanna CULP, Jesse Shields Verified: ??02/16/2023 8:04 ?? Dermatopathologist Performed at: ??[facility] Dept. of Pathology, [place] [address] Crust Sorter: Kunal Rubi MD, FCAP, ??CLIA Certificate: [id number] DISCUSSION If there is an obvious clinical [...] labeled A1. ??sns 02/16/2023 8:04 AM EDT [facility] 02/05/2023 3:00 PM EDT Marek Bonilla MD PATHOLOGY/CYTOLOGY O RDERAJOSE ARMANDO [facility] [place] [address] documented in this encounter Visit Diagnoses Not on filedocumented in this encounter Care Teams Medication Coordinator Relationship Specialty Start Date End Date Magdalena Acosta MD [address] [place] [address] PCP - General Family Medicine 02/05/23 documented as of this encounter
--- OUTSIDE RECORDS SUMMARY | 2024-02-24 14:01 | XMS_ITS | Encounter Summary ---
Author Organization [facility] Address [facility] [place] [address] Care Team Providers Care Steam Cleaner Name Role Phone Deborah Quiroga APRN Primary Care Provider [phone] Reason for Visit * Consultation (Routine) - Closed Specialty Diagnoses / Procedures Referred By Contkrystle t Referred To Contact Rheumatology Diagnoses Positive FRANCISCO (antinuclear antibody) Arthralgia, unspecified joint Sandy Wu APRN [address] [place] [address] [facility] Rhe[facility]ology [address] [place] [address] Referral ID Status Reason Start Date Expiration Date V isits Requested Visits Authorized [id number] Closed Consult, Test & Treat PCP Updated and/or Approved 01/01/2022 01/01/2023 6 6 Encounter Details Date Type Department Care Team (Latest Contact Info) Description 01/20/2022 10:00 AM EDT Office [place] [address] Raymond Loredo MD [facility] [place] [address] Rosacea; Raynaud's phenomenon without gangrene; [...] can be done locally or here at [facility] documented in this encounter [...] over radiocarpal or ulnocarpal joints. 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 SJC/TJC 0/0. Hips: Full motion, [...] can be done locally or here at [facility] that the current time is not particularly interested it seems Raymnod Loredo MD documented in this encounter Plan of Treatment Upcoming Encounters Date Type Department Care Team (Late st Contact Info) Description 06/05/2024 11:30 AM EST Office [place] [address] Magdalena Peralta MD [facility] [place] [address] 03/01/2025 4:15 PM EDT Office Visit Dermatology at [address] [place] [address] Marek Bonilla MD [address] [place] [address] [place] [address] Scheduled Referrals Name Type Priority Associated Diagnoses [...] syndrome documented in this encounter Care Teams Steam Cleaner Relationship Specialty Start Date End Date Deborah Quiroga APRN PCP - General Family Medicine 03/24/16 02/04/23 documented as of this encounter
--- OUTSIDE RECORDS SUMMARY | 2024-02-24 14:01 | XMS_ITS | Encounter Summary ---
Author Organization [facility] [place] [address] Care Team Providers Care Newspaper Columnist Name Role Phone Deborah Quiroga APRN Primary Care Provider [phone] Encounter Details Date Type Department Care Team (Late st Contact Info) Description 06/08/2022 Ancillary Procedure [place] [address] Deborah Quiroga GLASS NOVELTY MAKER [address] [facility] [address] [place], [place] [address] Social History Tobacco Use Types Packs/Day Years [...] AM EST Office Visit [place] [address] Magdalena Peralta MD [facility] [place] [address] 03/01/2025 4:15 PM EDT Office Visit Dermatology at [address] [place] [address] Marek Bonilla MD [address] [facility] [place] [address] documented as of this encounter Procedures Procedure Name Priority Date/Time Associated Diagnosis Comments FILM LIBRARY STORAGE ONLY DX SPINE Routine 06/08/2022 12:00 AM EST documented in this encounter Results * Film Library- Storage Only DX Spine (06/08/2022 12:00 AM EST) Narrative [facility] - 06/18/2022 10:57 AM EST This exam is auto-finalizing. It's purpose is for storage only. Deborah Quiroga APRN IMGerman FILM LIBRARY OR DERABLES Performing Organization Address City/State/[facility] Co de Phone Number [place], [place] documented in this encounter Visit Diagnoses Not on filedocumented in this encounter Care Teams Newspaper Columnist Relationship Specialty Start Date End Date Deborah Quiroga APRN PCP - General Family Medicine 03/24/16 02/04/23 documented as of this encounter
--- OUTSIDE RECORDS SUMMARY | 2024-02-24 14:01 | XMS_ITS | Encounter Summary ---
Author Organization [facility] [place] [address] Care Team Providers Care Clinical Nurse Occupational Medicine Name Role Phone Magdalena Acosta MD Primary Care Provider [phone] Encounter Details Date Type Department Care Team [...] AM EST Office [place] [address] Magdalena Peralta MD [facility] [place] [address] 03/01/2025 4:15 PM EDT Office Visit Dermatology at [address] [place] [address] Marek Bonilla MD [address] [place] [address] [place] [address] documented as of this encounter Visit Diagnoses Not on filedocumented in this encounter Care Teams Clinical Nurse Occupational Medicine Relationship Specialty Start Date End Date Magdalena Acosta MD [address] [place] [address] PCP - General Family Medicine 02/05/23 documented as of this encounter
--- OUTSIDE RECORDS SUMMARY | 2024-02-24 14:01 | XMS_ITS | Encounter Summary ---
Author Organization [facility] [place] [address] Care Team Providers Care Science Faculty Member Name Role Phone Magdalena Acosta MD Primary Care Provider [phone] Encounter Details Date Type Department Care Team [...] 11:30 AM EST Office [place] [address] Magdalena Peralta MD [facility] [place] [address] 03/01/2025 4:15 PM EDT Office Visit Dermatology at [address] [place] [address] Marek Bonilla MD [address] [place] [address] [place] [address] documented as of this encounter Visit Diagnoses Not on filedocumented in this encounter Care Teams Science Faculty Member Relationship Specialty Start Date End Date Magdalena Acosta MD [address] [place] [address] PCP - General Family Medicine 02/05/23 documented as of this encounter
--- OUTSIDE RECORDS SUMMARY | 2024-02-24 14:01 | XMS_ITS | Encounter Summary ---
[place] [address] Care Team Providers Care Paper Steamer Name Role Phone Magdalena Acosta MD Primary Care Provider [phone] Reason for Referral * Consultation (Routine) - Authorized Specialty Diagnoses / Procedures Referred By Contac t Referred To Contact Rheumatology Diagnoses Weakness Kyra Haas MD [facility] [address] [place] [address] [facility] [address] [place] [phone] Referral ID Status Reason Start Date Expiration Date Visits Requested Visits Authorized [id number] Authorized Consult, Test & Treat PCP Updated and/or Approved 02/25/2023 02/25/2024 6 6 Encounter Details Date Type Department Care Team (Late st Contact Info) Description 02/25/2023 Transcribe Orders eDH Incoming Referrals [phone] Magdalena Acosta MD [address] [place] [address] Weakness Social History Tobacco Use [...] 11:30 AM EST [place] [address] Magdalena Perlata MD [facility] [place] [address] 03/01/2025 4:15 PM EDT Office Visit Dermatology at [place] [address] [facility] [place] [address] Marek Bonilla MD [address] [facility] [place] [address] Scheduled Referrals Name Type Priority Associated Diagnoses Order Schedule Referral to Rheumatology Outpatient Referral Routine Weakness Ordered: 02/25/2023 documented as of this encounter Visit Diagnoses Diagnosis Weakness Other malaise and fatigue documented in this encounter Care Teams Paper Steamer Relationship Specialty Start Date End Date Magdalena Acosta MD [address] [place] [address] PCP - General Family Medicine 02/05/23 documented as of this encounter
--- OUTSIDE RECORDS SUMMARY | 2024-02-24 14:01 | XMS_ITS | Encounter Summary ---
Author Organization [facility] [place] [address] Care Team Providers Care Extension Division Director Name Role Phone Deborah Quiroga APRN Primary Care Provider [phone] Encounter Details Date Type Department Care Team [...] 11:30 AM EST Office [place] [address] Magdalena Peralta MD [facility] [place] [address] 03/01/2025 4:15 PM EDT Office Visit Dermatology at [address] [place] [address] Marek Bonilla MD [address] [place] [address] [place] [address] documented as of this encounter Visit Diagnoses Not on filedocumented in this encounter Care Teams Extension Division Director Relationship Specialty Start Date End Date Deborah Quiroga APRN PCP - General Family Medicine 03/24/16 02/04/23 documented as of this encounter
--- OUTSIDE RECORDS SUMMARY | 2024-02-24 14:01 | XMS_ITS | Encounter Summary ---
Author Organization [facility] Address [facility] [place] [address] Care Team Providers Care Laborer Pole Crew Name Role Phone Deborah Quiroga APRN Primary Care Provider [phone] Reason for Visit * Reason Comments Follow-up Encounter Details Date Type Department Care Team (Late st Contact Info) Description 07/03/2022 1:30 PM EST Office Visit Hematology and Oncology at [facility] [place] [address] Markel Borjas MD [facility] [place] [address] Consuelo Sommer APRN [facility] [address] [place] [address] Chronic idiopathic neutropenia; Dysuria Social History Tobacco [...] 07/03/2022 1:30 PM EST Hematology Outpatient Clinic [facility] Hematology Outpatient Consult Note CC: [id number] [...] TOUCH PREP, CLOT SECTION, CORE ??BIOPSY); [OSR# [id number], COLLECTED 06/23/2016, 19 SLIDES]: ?1. 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 Extremities: No edema. Labs: Hgb= 11.7 Nvzm=626 ANC= 2.5 Imaging As above - reviewed [...] 11:30 AM EST Office [place] [address] Magdalena Peralta MD [facility] [place] [address] 03/01/2025 4:15 PM EDT Office Visit Dermatology at [place] [address] [place] [phone] Marek Bonilla MD [address] [facility] DERMATOLOGY [place], [place] [phone] documented as of this encounter Procedures Procedure [...] tract infection, submit a new specimen. (A) [facility] Clean Catch Urine 07/03/2022 2:00 PM EST 07/03/2022 5:55 PM EST Narrative Resulting Agency Comment Spec In Lab Markel Borjas MD MICROBIOLOGY - GEN ERAL ORDERABLES Performing Organization Address [facility]/ZIP Co de Phone Number [facility] [place] [address] * (ABNORMAL) Urinalysis Microscopic Exam (07/03/2022 2:00 PM EST) RBC UA 2 0 - 4 /HPF [facility] WBC UA 14(H) 0 - 5 /HPF [facility] Bacteria UA Occasional (A) None /HPF [facility] Squam Epith UA 12(H) <=4 /HPF [facility] Hyaline Cast UA 2 0 - 2 /LPF [facility] Clean Catch Urine 07/03/2022 2:00 PM EST 07/03/2022 2:29 PM EST Narrative Resulting Agency Comment Spec In Lab Markel Borjas MD URINE ORDERABLES Performing Organization Address City/[facility]/ZIP Co de Phone Number [facility] [place] [address] * (ABNORMAL) Urinalysis with reflex Culture (07/03/2022 2:00 PM EST) Glucose UA Negative Negative mg/dL [facility] Protein UA 30(A) Negative mg/dL [facility] Bilirubin UA Negative Negative mg/dL [facility] Comment: Clinical correlation required for positive Urine Bilirubin results as false positive may occur with some drugs and drug related products. If a false positive is suspected a serum total bilirubin should be considered if clinically indicated. Urobilinogen UA Normal Normal mg/dL [facility] pH UA 5.5 5.0 - 8.0 [facility] Blood UA Negative Negative mg/dL [facility] Ketones UA Trace(A) Negative mg/dL [facility] Nitrite UA Negative Negative [facility] Leukocytes UA Small(A) Negative [facility] Appearance UA Clear Clear [facility] Spec [place] UA 1.022 1.005 - 1.030 [facility] Color UA Yellow Yellow [facility] Culture Reflexed Yes [facility] Clean Catch Urine 07/03/2022 2:00 PM EST 07/03/2022 2:29 PM EST Narrative Resulting Agency Comment Spec In Lab Markel Borjas MD URINE ORDERABLES Performing Organization Address City/State/[facility] Co de Phone Number [facility] [place] [address] * (ABNORMAL) Comprehensive metabolic panel (non-fasting) (07/03/2022 12:40 PM EST) Glucose Lvl 92 65 - 199 mg/dL [facility] Comment:Diabetes: >=200 mg/d L plus symptoms BUN 22(H) 8 - 18 mg/dL [facility] Creatinine 0.80 0.70 - 1.20 mg/dL [facility] Sodium 139 135 - 145 mmol/L [facility] Potassium 4.2 3.5 - 5.0 mmol/L [facility] Comment: Please note: ??Patients with WBC >100,000 may have falsely elevated Potassium levels. ??For accurate Potassium quantification in these patients send serum separator tube (gold top) for subsequent determinations. ??Contact the Clinical Chemistry Laboratory if there are any questions. Chloride 105 98 - 107 mmol/L [facility] CO2 23 22 - 31 mmol/L [facility] Anion Gap 11 5 - 15 mmol/L [facility] Calcium 10.1 8.5 - 10.5 mg/dL [facility] Total Protein 7.6 6.1 - 8.0 g/dL [facility] Albumin 4.1 3.2 - 5.2 g/dL [facility] AST 25 0 - 30 unit/L [facility] ALT 14 0 - 30 unit/L [facility] Alk Phos 80 35 - 105 unit/L [facility] Total Bilirubin 0.3 0.2 - 1.3 mg/dL [facility] Estimated GFR 81 >=60 mL/min/1. 73 m?? [facility] Comment: This patient's [...] Narrative Resulting Agency Comment Spec In Lab Mrakel Borjas MD CHEMISTRY ORDERABL ES [facility] [place] [address] documented in this encounter Visit Diagnoses Diagnosis Chronic idiopathic neutropenia Other neutropenia Dysuria documented in this encounter Care Teams Laborer Pole Crew Relationship Specialty Start Date End Date Deborah Quiroga APRN PCP - General Family Medicine 03/24/16 02/04/23 documented as of this encounter
--- OUTSIDE RECORDS SUMMARY | 2024-02-24 14:01 | XMS_ITS | Encounter Summary ---
Author Organization [facility] Address [facility] [place] [address] Care Team Providers Care Mine Engineering Superintendent Name Role Phone Magdalena Acosta MD Primary Care Provider Encounter Details Date Type Department Care Team (Late st Contact Info) Description 04/27/2023 3:00 PM EDT [place] [address] Magdalena Peralta MD [facility] [place] [address] Mixed connective tissue disease Social History Tobacco [...] 1:5120 speckled; VIC negative; Myositis panel with GRAIN SCOOPER ab 149.1 (positive); Anti U1RNP IgG 119; [...] 11:30 AM EST [place] [address] Magdalena Peralta MD [facility] [place] [address] 03/01/2025 4:15 PM EDT Office Visit Dermatology at [address] [place] [address] Marek Bonilla MD [address] [place] [address] documented as of this encounter Visit Diagnoses Diagnosis Mixed connective tissue disease Other specified diffuse disease of connective tissue documented in this encounter Care Teams Mine Engineering Superintendent Relationship Specialty Start Date End Date Magdalena Acosta MD [address] [place] [address] PCP - General Family Medicine 02/05/23 documented as of this encounter
--- OUTSIDE RECORDS SUMMARY | 2024-02-24 14:01 | XMS_ITS | Encounter Summary ---
Author Organization [facility] [place] [address] Care Team Providers Care Pizza Delivery Driver Name Role Phone Deborah Quiroga APRN Primary Care Provider [phone] Encounter Details Date Type Department Care Team [...] 11:30 AM EST Office [place] [address] Magdalena Peralta MD [facility] [place] [address] 03/01/2025 4:15 PM EDT Office Visit Dermatology at [address] [place] [phone] Marek Bonilla MD [address] [place] [address] [place] [address] documented as of this encounter Visit Diagnoses Not on filedocumented in this encounter Care Teams Pizza Delivery Driver Relationship Specialty Start Date End Date Deborah Quiroga APRN PCP - General Family Medicine 03/24/16 02/04/23 documented as of this encounter
--- OUTSIDE RECORDS SUMMARY | 2024-02-24 14:01 | XMS_ITS | Encounter Summary ---
Author Organization [facility] [place] [address] Care Team Providers Care Material Spreader Name Role Phone Magdalena Acosta MD Primary Care Provider [phone] Encounter Details Date Type Department Care Team (Late st Contact Info) Description 05/08/2023 [place] [phone] Luis Felipe Ott MD [facility] [place] [address] Social History Tobacco Use Types Packs/Day Years [...] 0426 Referring Provider: Nitesh Baltazar Patient Location: [facility] Presenting Symptoms per OSH: 67 year [...] diuresis with IV furosemide 20 x 1 ([id number] at rheumatology appointment), SpO2 85% on RA -> 95% on 2L NC, HR 120s. Examination significant for decreased breath sounds at the bases. Pertinent Diagnostic Findings: CBC - Hgb 10.5 CMP - Cr 1.1 BNP 91463 HsTrop 1358 Lactate 1.6 D-dimer 1183, CTPE pending CXR demonstrated pulmonary vascular congestion US showed bilateral b lines Bedside echo reportedly similar to prior TTE for LV function OSH Interventions: ASA 324 Heparin gtt Plan: [place] [facility] Above recommendations/plans are based on my conversation with the referring provider. I have not personally interviewed or examined this patient. Luis Felipe Ott MD Group Fitness Manager Received a call from provider emergently at 715am. Mentating well and BP 87/53. HR 108 and diursingwell. They were about to start phenylephrine which I stressed was not a good option given concern for severe and increasing afterload. She is warm on exam, mentating and urinating and we do not need to amrit a BP if those things remain stable. Nico Segura, PGY-6 Group Fitness Manager [id number] documented in this encounter Plan of Treatment Upcoming Encounters Date Type Department Care Team (Late st Contact Info) Description 06/05/2024 11:30 AM EST Office [place] [address] Magdalena Peralta MD [facility] [place] [address] 03/01/2025 4:15 PM EDT Office Visit Dermatology at [address] [place] [phone] Marek Bonilla MD [address] [facility] [place] [address] documented as of this encounter Visit Diagnoses Not on filedocumented in this encounter Care Teams Material Spreader Relationship Specialty Start Date End Date Magdalena Acosta MD [address] [place] [address] PCP - General Family Medicine 02/05/23 documented as of this encounter
--- OUTSIDE RECORDS SUMMARY | 2024-02-24 14:01 | XMS_ITS | Encounter Summary ---
Author Organization [facility] [place] [address] Care Team Providers Care Client Services Account Manager Name Role Phone Deborah Quiroga APRN Primary Care Provider [phone] Encounter Details Date Type Department Care Team (Latest Contact Info) Description 07/03/2022 12:28 PM EST - 07/03/2022 1:35 PM EST Hospital Encounter [place] [address] Chronic idiopathic neutropenia Discharge Disposition: Home Social [...] 11:30 AM EST [place] [address] Magdalena Peralta MD [facility] [place] [address] 03/01/2025 4:15 PM EDT Office Visit Dermatology at [address] [place] [address] Marek Bonilla MD [address] [facility] [place] [address] documented as of this encounter Procedures Procedure [...] 12:40 PM EST) Neutrophils % 72.9 % [facility] Neutr Abs (ANC) 2.61 1.70 - 6.10 x10(3)/[facility] Lymphocytes % 18.4 % [facility] Lymphocytes Abs 0.7(L) 0.9 - 3.2 x10(3)/[facility] Monocytes % 8.4 % [facility] Monocyte Abs 0.3 0.3 - 0.9 x10(3)/[facility] Eosinophils % 0.0 % [facility] Eosinophils Abs 0.0 0.0 - 0.4 x10(3)/[facility] Basophils % 0.3 % [facility] Basophils Abs 0.0 0.0 - 0.1 x10(3)/[facility] Immature Gran % 0.00 % [facility] Comment: Immature granulocytes(IG's)percentage and absolute count will include metamyelocytes, myelocytes, and promyelocytes. Blood smears from CBCs yielding IG's will be scanned manually for concordance. If this scan disagrees with the automated IG or if promyelocytes are noted, a manual differential will be performed. Amanda Gran Abs 0.00 0.00 - 0.04 x10(3)/ L [facility] Blood 07/03/2022 12:4 0 PM EST 07/03/2022 1:03 PM EST Narrative Resulting Agency Comment Spec In Lab Markel Borjas MD HEMATOLOGY ORDERAB LES [facility] [place] [address] * (ABNORMAL) Hemogram (07/03/2022 12:40 PM EST) WBC 3.6(L) 4.0 - 9.5 x10(3)/[facility] RBC 3.61(L) 4.00 - 5.21 x10(6)/[facility] Hemoglobin 11.7 11.7 - 15.5 g/dL [facility] Hematocrit 34.5(L) 35.7 - 45.8 % [facility] MCV 95.6(H) 82.6 - 94.4 fL [facility] MCH 32.4(H) 27.1 - 32.0 pg [facility] MCHC 33.9 31.7 - 35.0 g/dL [facility] Platelets 171 145 - 357 x10(3)/[facility] RDWSD 40.5 37.0 - 46.0 [facility] RDWCV 11.5 11.5 - 14.1 % [facility] MPV 9.2 7.6 - 12.9 fL [facility] nRBC % Auto 0.0 % [facility] nRBC Abs Auto 0.000 0.000 - 0.000 x10(3)/[facility] Blood 07/03/2022 12:4 0 PM EST 07/03/2022 1:03 PM EST Narrative Resulting Agency Comment Spec In Lab Markel Borjas MD HEMATOLOGY ORDERAB LES [facility] [place] [address] * (ABNORMAL) Comprehensive metabolic panel (non-fasting) (07/03/2022 12:40 PM EST) Glucose Lvl 92 65 - 199 mg/dL [facility] Comment:Diabetes: >=200 mg/d L plus symptoms BUN 22(H) 8 - 18 mg/dL [facility] Creatinine 0.80 0.70 - 1.20 mg/dL [facility] Sodium 139 135 - 145 mmol/L [facility] [...] questions. Chloride 105 98 - 107 mmol/L [facility] CO2 23 22 - 31 mmol/L [facility] Anion Gap 11 5 - 15 mmol/L [facility] Calcium 10.1 8.5 - 10.5 mg/dL [facility] Total Protein 7.6 6.1 - 8.0 g/dL [facility] Albumin 4.1 3.2 - 5.2 g/dL [facility] AST 25 0 - 30 unit/L [facility] ALT 14 0 - 30 unit/L [facility] Alk Phos 80 35 - 105 unit/L [facility] Total Bilirubin 0.3 0.2 - 1.3 mg/dL [facility] Estimated GFR 81 >=60 mL/min/1. 73 m?? [facility] Comment: This patient's estimated [...] Lab Markel Borjas MD CHEMISTRY ORDERABL ES [facility] [place] [address] documented in this encounter Visit Diagnoses Diagnosis Chronic idiopathic neutropenia Other neutropenia documented in this encounter Care Teams Client Services Account Manager Relationship Specialty Start Date End Date Deborah Quiroga, PRINT BINDING WORKER PCP - General Family Medicine 03/24/16 02/04/23 documented as of this encounter
--- OUTSIDE RECORDS SUMMARY | 2024-02-24 14:01 | XMS_ITS | Encounter Summary ---
[place] [address] Care Team Providers Care Third Loader Name Role Phone Magdalena Acosta MD Primary Care Provider [phone] Reason for Visit * Reason Comments Skin Lesion Encounter Details Date Type Department Care Team (Late st Contact Info) Description 04/20/2023 10:00 AM EDT Office Visit Dermatology at [address] [address] Marek Bonilla MD [address] [facility] [place] [address] Seborrheic keratosis Social History Tobacco Use Types [...] cutaneous and ocular 3. Previously told by costume design teacher that she had corneal tears from her [...] 11:30 AM EST Office [place] [address] Magdalena Peralta MD [facility] [place] [address] 03/01/2025 4:15 PM EDT Office Visit Dermatology at [address] [phone] Marek Bonilla MD [address] [facility] [place] [address] documented as of this encounter Visit Diagnoses Diagnosis Seborrheic keratosis Other seborrheic keratosis documented in this encounter Care Teams Third Loader Relationship Specialty Start Date End Date Magdalena Acosta MD [address] [place] [address] PCP - General Family Medicine 02/05/23 documented as of this encounter
--- OUTSIDE RECORDS SUMMARY | 2024-02-24 14:01 | XMS_ITS | Encounter Summary ---
Author Organization [facility] [place] [address] Care Team Providers Care Cartography Teacher Name Role Phone Junaid Deborah Shields APRN Primary Care Provider [phone] Encounter Details Date Type Department Care Team (Late st Contact Info) Description 11/09/2022 11:30 AM EDT - 11/09/2022 12:30 PM EDT [place] [address] Nitesh Escobedo MD [facility] [place] [address] CARDIAC CATHETERIZATION Social History Tobacco Use Types [...] Center 02/05/2023 2:30 PM Marek Bonilla MD [facility] New Medications to be Picked Up None For questions regarding this document or issues relating to this hospitalization on the Medical Service, please contact your inpatient physician through the [facility] Content Strategist . Issues afterhours and on weekends will be handled by the Hospitalist staff on-call. * Attachments The following attachments cannot be sent through Care Everywhere. * Coronary Angiogram: Post-op ([place] Islander) * Right Heart Catheterization: Pulmonary Artery Catheterization: Post-op ([place] Islander) documented in this encounter Medications at Time of Discharge Medication Sig Dispensed Refills Start Date End Date nystatin (MYCOSTATIN) 100,000 unit/gram Powder Apply topically 2 times daily as needed. 10/22/2022 OneTouch Verio test strips Strip USE DAILY 01/03/2022 IND LifetechTouch Delica Plus Lancet 33 gauge Misc USE [...] MD - 11/09/2022 11:20 AM EDT . [facility] Interventional Cardiology Adult Pre-Procedure H&P Update: Cardiac Catheterization Purnima Thacker [id number] 1955 Chief Complaint: BONILLA HPI: Purnima Thacker [...] Marrero MD Interventional Cardiology 11/09/22 11:43 AM [facility] Pager: [phone] documented in this encounter Plan of Treatment Upcoming Encounters Date Type Department Care Team (Late st Contact Info) Description 06/05/2024 11:30 AM EST [place] [address] Magdalena Peralta MD [facility] [place] [address] 03/01/2025 4:15 PM EDT Office Visit Dermatology at [place] [address] [place] [address] Marek Bonilla MD [address] [place] [address] documented as of this encounter Procedures Procedure Name Priority Date/Time Associated Diagnosis Comments CARDIAC CATHETERIZATION Routine 11/10/19 23 1:05 PM EDT Aortic valve stenosis, etiology of cardiac valve disease unspecified Cath Plmt Left Heart Cath & Arts W/Inj & Angio Img S&I ([id number]) 11/09/2022 11:51 AM EDT Aortic valve stenosis, etiology of cardiac valve disease unspecified EKG 12-LEAD Routine 11/09/2022 11:17 AM EDT Aortic valve stenosis, etiology of cardiac valve disease unspecified documented in this encounter Results * CARDIAC CATHETERIZATION (11/09/2022 1:05 PM EDT) Anatomical Region Laterality Modality Other Narrative 11/09/2022 2:01 PM EDT ?[facility] ? Cardiac Catheterization/Intervention Report ? Patient Name: Kirstie, Purnima M. ? Procedure Date: 11/09/2022 ? A #: [id number] ? Primary Physician: Nitesh Escobedo ? Case #: [id number] ? File Name: [id number] ? Catheterization Order Number: [id number] ? [facility] ? Final Report [place], [place] ? Patient Name: ? Purnima M. Kirstie ? ID#: ?[id number] ? : ?1955 ? Procedure Date: ? [...] was designated as ASA Class III. The [facility] clinical frailty scale ?is 4: Vulnerable. ? [...] (Bezet) 457 ms MUSE SYSTEM Calculated P [place] 44 degrees MUSE SYSTEM Calculated R [place] 33 degrees MUSE SYSTEM Calculated T [place] 30 degrees MUSE SYSTEM INTERPRETATION Sinus rhythm Occasional Premature ventricular complexes Otherwise normal ECG When compared with ECG of 21-SEP-2016 12:26, Premature ventricular complexes are now Present LA interval has decreased Nonspecific T wave abnormality has replaced inverted T waves in Inferior leads I personally reviewed the tracing and edited the fellows interpretation Confirmed by fellow MD Anitha, Carissa ([id number]) on 11/09/2022 6:17:28 PM Confirmed by Elsa [...] MD) documented in this encounter Care Teams Cartography Teacher Relationship Specialty Start Date End Date Deborah Quiroga, SPICE BLENDER PCP - General Family Medicine 03/24/16 02/04/23 documented as of this encounter
--- OUTSIDE RECORDS SUMMARY | 2024-02-24 14:02 | XMS_ITS | Encounter Summary ---
[place] [address] Care Team Providers Care Completion Engineer Name Role Phone Ashley Quirogan Cornelius ANURAG Primary Care Provider [phone] Reason for Visit * Reason Comments Acrochordon Rosacea Encounter Details Date Type Department Care Team (Late st Contact Info) Description 12/05/2020 3:00 PM EDT Office Visit Dermatology at [address] [phone] Marek Bonilla MD [address] [facility] DERMATOLOGY [place], [place] [phone] Inflamed acrochordon Social History Tobacco Use Types [...] 11:30 AM EST Office [place] [address] Magdalena Peralta MD [facility] [place] [address] 03/01/2025 4:15 PM EDT Office Visit Dermatology at [address] [phone] Marek Bonilla MD [address] [facility] [place] [address] documented as of this encounter Visit Diagnoses Diagnosis Inflamed acrochordon Unspecified hypertrophic and atrophic condition of skin documented in this encounter Care Teams Completion Engineer Relationship Specialty Start Date End Date Deborah Quiroga APRN PCP - General Family Medicine 03/24/16 02/04/23 documented as of this encounter
--- OUTSIDE RECORDS SUMMARY | 2024-02-24 14:02 | XMS_ITS | Encounter Summary ---
Author Organization [facility] Address [facility] [place] [address] Care Team Providers Care Counter Hop Name Role Phone Ashley Quirogazac Shields APRN Primary Care Provider [phone] Encounter Details Date Type Department Care Team (Late st Contact Info) Description 10/20/2016 11:20 AM EDT Office Visit [place] [phone] Alirio Esparza MD [facility] DR [place] [address] S/P AVR Social History Tobacco Use Types [...] all of her postoperative tests done at [facility]. Her echo shows a well-seated valve. Her EF, for some reason, was read as in the 45% to 50% range. She had a normal EF to start. I think that will need to be repeated at [facility]. She has no perivalve leak. Her mean [...] should continue to see Dr. Burrell, her telephonic nurse case manager at [facility]. cc: Dr. Burrell documented in this encounter Plan of Treatment Upcoming Encounters Date Type Department Care Team (Late st Contact Info) Description 06/05/2024 11:30 AM EST Office [place] [address] Magdalena Peralta MD [facility] [place] [address] 03/01/2025 4:15 PM EDT Office Visit Dermatology at [address] [place] [address] Marek Bonilla MD [address] [place] [address] documented as of this encounter Visit Diagnoses Diagnosis S/P AVR Heart valve replaced by other means documented in this encounter Care Teams Counter Hop Relationship Specialty Start Date End Date Deborah Quiroga APRN PCP - General Family Medicine 03/24/16 02/04/23 documented as of this encounter
--- OUTSIDE RECORDS SUMMARY | 2024-02-24 14:02 | XMS_ITS | Encounter Summary ---
Author Organization [facility] Address [facility] Erika ló[place] [address] Care Team Providers Care Retirement Sales Consultant Name Role Phone Deborah Quiroga APRN Primary Care Provider [phone] Encounter Details Date Type Department Care Team (Late st Contact Info) Description 06/05/2021 Interpretation Only [address] [address] Deborah Quiroga APRN [address] [id number] Social History Tobacco Use Types Packs/Day Years [...] 11:30 AM EST Office [place] [address] Magdalena Peralta MD [facility] [place] [address] 03/01/2025 4:15 PM EDT Office Visit Dermatology at [place] [address] [facility] [place] [address] Marek Bonilla MD [address] [facility] [place] [address] documented as of this encounter Procedures Procedure Name Priority Date/Time Associated Diagnosis Comments MAMMO SCREENING CAD BILATERAL Routine 06/05/2021 11:42 AM EDT documented in this encounter Results * Mammo Screening Cad Bilateral (06/05/2021 11:42 AM EDT) PT CLASS O DH RAD ADMITDTTM DH RAD PT DH RAD MD INFO [phone]^EV ERETT^DEBORAH^E DH RAD EXAM DESC MADDSC^SCREEN MAMMO [...] have questions please contact the health career and guidance counselor that requested your imaging first. ? Electronically signed by: Rocael Villatoro MD, [facility] ([phone]), at 06/05/2021 1:27 PM Narrative 06/05/2021 1:27 [...] who have questions please contactthe health career and guidance counselor that requested your imaging first. Electronically signed by: Rocael Villatoro MD, [facility]([phone]), at 06/05/2021 1:27 PM Deborah Quiroga APRN IMG MAMMO ORDERABLE S documented in this encounter Visit Diagnoses Not on filedocumented in this encounter Care Teams Retirement Sales Consultant Relationship Specialty Start Date End Date Deborah Quiroga APRN PCP - General Family Medicine 03/24/16 02/04/23 documented as of this encounter
--- OUTSIDE RECORDS SUMMARY | 2024-02-24 14:02 | XMS_ITS | Encounter Summary ---
Author Organization [facility] Address [facility] [place] [address] Care Team Providers Care Health Information Director Name Role Phone Junaid Deborah Shields APRN Primary Care Provider [phone] Encounter Details Date Type Department Care Team (Latest Contact Info) Description 10/14/2016 - 10/14/2016 11:59 PM EDT Hospital Encounter [place] [address] Alirio Esparza MD [facility] DR C[place] [address] Pain Discharge Disposition: Home Social History Tobacco [...] EST Office [place] [address] Magdalena Peralta MD [facility] [place] [address] 03/01/2025 4:15 PM EDT Office Visit Dermatology at [address] [place] [address] Marek Bonilla MD [address] [place] [address] [place] [address] documented as of this encounter Procedures Procedure Name Priority Date/Time Associated Diagnosis Comments FILM LIBRARY STORAGE ONLY DX CHEST Routine 10/14/2016 12:00 AM EDT Pain documented in this encounter Results * Film Library- Storage Only DX Chest (10/14/2016 12:00 AM EDT) Narrative [facility] - 10/14/2016 5:16 PM EDT This exam is for storage only and is auto-finalizing. Alirio Esparza MD IMG FILM LIBRARY OR DERABLES [place], [place] documented in this encounter Visit Diagnoses Diagnosis Pain Generalized pain documented in this encounter Care Teams Health Information Director Relationship Specialty Start Date End Date Deborah Quiroga, BEARINGIZER PCP - General Family Medicine 03/24/16 02/04/23 documented as of this encounter
--- OUTSIDE RECORDS SUMMARY | 2024-02-24 14:02 | XMS_ITS | Encounter Summary ---
Author Organization [facility] Address [facility] [place] [address] Care Team Providers Care Support Services Manager Name Role Phone Deborah Quiroga APRN Primary Care Provider [phone] Encounter Details Date Type Department Care Team (Late st Contact Info) Description 06/18/2017 External Results [place]ology [place] [address] Alexandrea Greenwood RN Neutropenia, unspecified type Social [...] EST Office [place] [address] Magdalena Peralta MD [facility] [place] [address] 03/01/2025 4:15 PM EDT Office Visit Dermatology at [address] [phone] Marek Bonilla MD [address] [place] [address] [place] [address] documented as of this encounter Procedures Procedure [...] specimen (specimen) 06/11/2017 1:19 PM EST Markel oBrjas MD CHEMISTRY ORDERABL ES Performing Organization Address [facility] Co de Phone Number EXTERNAL [...] type documented in this encounter Care Teams Support Services Manager Relationship Specialty Start Date End Date Deborah Quiroga APRN PCP - General Family Medicine 03/24/16 02/04/23 documented as of this encounter
--- OUTSIDE RECORDS SUMMARY | 2024-02-24 14:02 | XMS_ITS | Encounter Summary ---
Author Organization [facility] Address [facility] [place] [address] Care Team Providers Care Tunnel Inspector Name Role Phone Ashley Quirogan Cornelius ANURAG Primary Care Provider [phone] Encounter Details Date Type Department Care Team (Late st Contact Info) Description 03/04/2020 External Results [place]ology [place] [address] Theroux Bhumi E Social History Tobacco Use Types Packs/Day Years [...] 11:30 AM EST Office [place] [address] Magdalena Peralta MD [facility] [place] [address] 03/01/2025 4:15 PM EDT Office Visit Dermatology at [address] [phone] Marek Bonilla MD [address] [place] [address] [place] [address] documented as of this encounter Procedures Procedure Name Priority Date/Time Associated Diagnosis Comments LIPID PANEL (NO REFLEX) Routine 02/28/2020 7:45 AM EDT CBC (WITH DIFF) Routine 02/28/2020 7:45 AM EDT COMPREHENSIVE METABOLIC PANEL (NON-FASTING) Routine 02/28/2020 7:45 AM EDT documented in this encounter Results * (ABNORMAL) Lipid Panel (No Reflex) (02/28/2020 7:45 AM EDT) Chol, Total 179 <200 EXTERNAL LAB Triglycerides 254(PRODUCTION CONTROL CLERK AL/ABN) <150 EXTERNAL LAB HDL 50 40 - 60 EXTERNAL LAB LDL Cholesterol 79 <100 EXTERNAL LAB Blood specimen (specimen) 02/28/2020 7:45 AM EDT Historical Provider MD CHEMISTRY ORDERAB LES Performing Organization Address City/[facility]/ZIP Co de Phone Number EXTERNAL LAB * (ABNORMAL) Comprehensive metabolic panel (non-fasting) (02/28/2020 7:45 AM EDT) Glucose Lvl 109(PRODUCTION CONTROL CLERK AL/ABN) 74 - 106 EXTERNAL LAB BUN [...] MD CHEMISTRY ORDERAB LES Performing Organization Address City/[facility]/ZIP Co de Phone Number EXTERNAL LAB [...] on filedocumented in this encounter Care Teams Tunnel Inspector Relationship Specialty Start Date End Date Deborah Quiroga, AUTOMOBILE BODY WORKER PCP - General Family Medicine 03/24/16 02/04/23 documented as of this encounter
--- OUTSIDE RECORDS SUMMARY | 2024-02-24 14:02 | XMS_ITS | Encounter Summary ---
[place] [address] Care Team Providers Care Felt Finisher Name Role Phone Deborah Quiroga ANURAG Primary Care Provider [phone] Encounter Details Date Type Department Care Team (Late st Contact Info) Description 02/07/2020 Telephone H[place]ology [place] [address] Ellen Rios RN Social History Tobacco Use [...] 02/07/2020 12:59 PM EDT Message received from customer energy specialist: Injection/Infusion Referral Services to be provided for pt are: CBC only at [facility]- Pt will go by 02/27 Orders faxed to [phone]). Spoke with pt. She will call [facility] directly to schedule a time that works for her. documented in this encounter Plan of Treatment Upcoming Encounters Date Type Department Care Team (Late Contact Info) Description 06/05/2024 11:30 AM EST Office [place] [address] Magdalena Peralta MD [facility] [place] [address] 03/01/2025 4:15 PM EDT Office Visit Dermatology at [address] [phone] Marek Bonilla MD [address] [facility] [place] [address] documented as of this encounter Visit Diagnoses Not on filedocumented in this encounter Care Teams Felt Finisher Relationship Specialty Start Date End Date Deborah Quiroga APRN PCP - General Family Medicine 03/24/16 02/04/23 documented as of this encounter
--- OUTSIDE RECORDS SUMMARY | 2024-02-24 14:02 | XMS_ITS | Encounter Summary ---
Author Organization [facility] Address [facility] [place] [address] Care Team Providers Care Career Development Director Name Role Phone Deborah Quiroga Cornelius OSBORN Primary Care Provider [phone] Encounter Details Date Type Department Care Team (Late st Contact Info) Description 11/11/2020 Refill Dermatology at [address] [address] Taylor Malone, GEOPHYSICIST Social History Tobacco Use Types Packs/Day Years [...] 11:30 AM EST Office [place] [address] Magdalena Peralta MD [facility] [place] [address] 03/01/2025 4:15 PM EDT Office Visit Dermatology at [address] [address] Marek Bonilla MD [address] [place] [address] DERMATOLOGY [place], [place] [address] documented as of this encounter Visit Diagnoses Not on filedocumented in this encounter Care Teams Career Development Director Relationship Specialty Start Date End Date Deborah Quiroga APRN PCP - General Family Medicine 03/24/16 02/04/23 documented as of this encounter
--- OUTSIDE RECORDS SUMMARY | 2024-02-24 14:02 | XMS_ITS | Encounter Summary ---
[place] [address] Care Team Providers Care Steward/Stewardess Wine Name Role Phone Deborah Quiroga APRN Primary Care Provider [phone] Reason for Referral * Consultation (Routine) - Closed Specialty Diagnoses / Procedures Referred By Contac t Referred To Contact Rheumatology Diagnoses Positive FRANCISCO (antinuclear antibody) Arthralgia, unspecified joint Sandy Wu APRN [address] [place] [address] [facility] [address] [place] [address] Referral ID Status Reason Start Date Expiration Date V isits Requested Visits Authorized [id number] Closed Consult, Test & Treat PCP Updated and/or Approved 01/01/2022 01/01/2023 6 6 Encounter Details Date Type Department Care Team (Latest Contact Info) Description 01/01/2022 Transcribe Orders eDH Incoming Referrals [phone] Sandy Wu APRN [address] [place], [place] [id number] Positive FRANCISCO (antinuclear antibody); Arthralgia, unspecified joint [...] 11:30 AM EST Office [place] [address] Magdalena Peralta MD [facility] DR [place]HEUMAT[place] [address] 03/01/2025 4:15 PM EDT Office Visit Dermatology at [place] [address] [facility] [place] [address] Marek Bonilla MD [address] [facility] [place] [address] Scheduled Referrals Name Type Priority Associated Diagnoses Orde r Schedule Referral to Rheumatology Outpatient Referral Routine Positive FRANCISCO (antinuclear antibody) Arthralgia, unspecified joint Ordered: 01/01/2022 documented as of this encounter Visit Diagnoses Diagnosis Positive FRANCISCO (antinuclear antibody) Other and unspecified nonspecific immunological findings Arthralgia, unspecified joint documented in this encounter Care Teams Steward/Stewardess Wine Relationship Specialty Start Date End Date Deborah Quiroga APRN PCP - General Family Medicine 03/24/16 02/04/23 documented as of this encounter
--- OUTSIDE RECORDS SUMMARY | 2024-02-24 14:02 | XMS_ITS | Encounter Summary ---
Author Organization [facility] Address [facility] [place] [address] Care Team Providers Care Sewer Maintenance Supervisor Name Role Phone Deborah Quiroga APRN Primary Care Provider [phone] Encounter Details Date Type Department Care Team (Late st Contact Info) Description 03/01/2020 11:30 AM EDT Office Visit Hematology and Oncology at [facility] [place] [address] Patrick Borjas MD [facility] [place] [address] Neutropenia, unspecified type Social History Tobacco Use [...] 11:30 AM EDT Hematology Outpatient Clinic [facility] Hematology Outpatient Consult Note CC: 60 [...] TOUCH PREP, CLOT SECTION, CORE ??BIOPSY); [OSR# [id number], COLLECTED 06/23/2016, 19 SLIDES]: ?1. 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 Extremities: No edema. Labs: Hgb= 12.4 Zrbs=701 ANC= 2.5 Imaging As above - reviewed [...] 11:30 AM EST Office [place] [address] Magdalena Peralta MD [facility] [place] [address] 03/01/2025 4:15 PM EDT Office Visit Dermatology at [address] [place] [address] Marek Bonilla MD [address] [place] [address] [place] [address] documented as of this encounter Visit Diagnoses Diagnosis Neutropenia, unspecified type documented in this encounter Care Teams Sewer Maintenance Supervisor Relationship Specialty Start Date End Date Deborah Quiroga APRN PCP - General Family Medicine 03/24/16 02/04/23 documented as of this encounter
--- OUTSIDE RECORDS SUMMARY | 2024-02-24 14:02 | XMS_ITS | Encounter Summary ---
Author Organization [facility] Address [facility] [place] [address] Care Team Providers Care Production Supervisor Off Shift Name Role Phone Junaid Deborah Shields APRN Primary Care Provider [phone] Reason for Visit * Reason Comments Schedule Office Case Pain right leg Encounter Details Date Type Department Care Team (Late st Contact Info) Description 12/11/2016 9:00 AM EDT Office Visit Hematology and Oncology at [facility] [place] [address] [facility] [place] [address] Neutropenia, unspecified type Social History Tobacco Use [...] 12/11/2016 9:00 AM EDT Hematology Outpatient Clinic [facility] Hematology Outpatient Consult Note CC: 60 [...] TOUCH PREP, CLOT SECTION, CORE ??BIOPSY); [OSR# [id number], COLLECTED 06/23/2016, 19 SLIDES]: ?1. 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 Extremities: No edema. Labs: Hgb= 13 Mbxm=251 ANC= 0.5 Imaging As above - reviewed [...] 11:30 AM EST Office [place] [address] Magdalena Peralta MD [facility] DR [place] [address] 03/01/2025 4:15 PM EDT Office Visit Dermatology at [address] [phone] Marek Bonilla MD [address] [facility] [place] [address] documented as of this encounter Results * [...] type documented in this encounter Care Teams Production Supervisor Off Shift Relationship Specialty Start Date End Date Deborah Quiroga, DENTAL SURGERY DOCTOR PCP - General Family Medicine 03/24/16 02/04/23 documented as of this encounter
--- OUTSIDE RECORDS SUMMARY | 2024-02-24 14:02 | XMS_ITS | Encounter Summary ---
Author Organization [facility] Address [facility] [place] [address] Care Team Providers Care Township Supervisor Name Role Phone Deborah Quiroga ANURAG Primary Care Provider [phone] Encounter Details Date Type Department Care Team (Late st Contact Info) Description 07/21/2017 Orders Only [place]ematology [place] [address] Alexandrea Greenwood RN Other neutropenia Social History [...] 11:30 AM EST Office [place] [address] Magdalena Peralta MD [facility] [place] [address] 03/01/2025 4:15 PM EDT Office Visit Dermatology at [address] [phone] Marek Bonilla MD [address] [facility] [place] [address] documented as of this encounter Visit Diagnoses Diagnosis Other neutropenia documented in this encounter Care Teams Township Supervisor Relationship Specialty Start Date End Date Deborah Quiroga, ANURAG PCP - General Family Medicine 03/24/16 02/04/23 documented as of this encounter
--- OUTSIDE RECORDS SUMMARY | 2024-02-24 14:02 | XMS_ITS | Encounter Summary ---
[place] [address] Care Team Providers Care Chainstitch Elastic Attacher Name Role Phone Ashley Quirogan Cornelius ANURAG Primary Care Provider [phone] Reason for Visit * Reason Onset Date Comments Medical Care Coordination 07/27/2017 Encounter Details Date Type Department Care Team (Late st Contact Info) Description 07/27/2017 Telephone Hematology [place] [address] Alexandrea Greenwood RN Medical Care Coordination Social [...] 07/27/2017 12:25 PM EST Message received from statistical secretary: Injection/Infusion Referral Call placed to [facility] @ [phone] Spoke w/ WOOD CLUB NECK WHIPPER Services to be provided for pt are: CBC/CMP DONE Q6 MONTHS X2 STARTING NOVEMBER 2017 TECH confirmed they would provide services to pt - I CALLED PT, LM. Pt orders faxed to [phone] documented in this encounter Plan of Treatment Upcoming Encounters Date Type Department Care Team (Late st Contact Info) Description 06/05/2024 11:30 AM EST Office [place] [address] Magdalena Peralta MD [facility] [place] [address] 03/01/2025 4:15 PM EDT Office Visit Dermatology at [place] [address] [place] [address] Marek Bonilla MD [address] [facility] [place] [address] documented as of this encounter Visit Diagnoses Not on filedocumented in this encounter Care Teams Chainstitch Elastic Attacher Relationship Specialty Start Date End Date Deborah Quiroga APRN PCP - General Family Medicine 03/24/16 02/04/23 documented as of this encounter
--- OUTSIDE RECORDS SUMMARY | 2024-02-24 14:02 | XMS_ITS | Encounter Summary ---
[place] [address] Care Team Providers Care City Councilman Name Role Phone Ashley Quirogazac Shields APRN Primary Care Provider [phone] Reason for Visit * Reason Onset Date Comments Results 12/03/2016 Encounter Details Date Type Department Care Team (Late st Contact Info) Description 12/03/2016 Telephone Hematology [place] [address] Yudith Valentine RN Results Social History Tobacco [...] EDT RN received call from Maddy at [facility] reporting critical WBC at 1.61, and ANC of 0.5. She will fax the full results to this office for director of medical review notified DR Borjas of above results documented in this encounter Plan of Treatment Upcoming Encounters Date Type Department Care Team (Late st Contact Info) Description 06/05/2024 11:30 AM EST Office Visit [place] [address] Magdalena Peralta MD [facility] [place] [address] 03/01/2025 4:15 PM EDT Office Visit Dermatology at [place] [address] [address] Marek Bonilla MD [address] [facility] [place] [address] documented as of this encounter Visit Diagnoses Not on filedocumented in this encounter Care Teams City Councilman Relationship Specialty Start Date End Date Deborah Quiroga APRN PCP - General Family Medicine 03/24/16 02/04/23 documented as of this encounter
--- OUTSIDE RECORDS SUMMARY | 2024-02-24 14:02 | XMS_ITS | Encounter Summary ---
Author Organization [facility] Address [facility] [address] Care Team Providers Care Rail Doweling Machine Operator Name Role Phone Ashley Quirogan Sylvia ANURAG Primary Care Provider [phone] Reason for Referral * Consultation (Routine) - Specialty Diagnoses / Procedures Referred By Contact Referred To Contact Cardiac Rehabilitation Diagnoses S/P AVR Alirio Esparza MD [facility] DR [place] [address] Cardiac Rehab, [address] [place] [address] Referral ID Status Reason Start Date Expiration Date V isits Requested Visits Authorized [id number] Consult, Test & Treat 09/25/2016 03/24/2017 36 36 Reason for Visit * Auth/Cert Specialty Diagnoses / Procedures Referred By Crispin maxwell Referred To Contact Diagnoses Aortic stenosis Procedures PRO REPLACE AORT VALV, PROSTH VALV @REPLACE AORTIC VALVE, OPEN, W\CPB, W\PROSTHETIC VALVE (WRVU 41.32) Referral ID Status Reason Start Date Expiration Date Visits Re quested Visits Authorized [id number] 1 1 Encounter Details Date Type Department Care Team (Latest Contact Info) Description 09/21/2016 6:08 AM EST - 09/25/2016 4:33 PM EST Hospital Encounter Intermediate [place] [id number] Alirio Esparza MD [facility] DR [place] [address] Aortic valve stenosis, unspecified etiology; S/P AVR [...] Patient Age: 61 y.o. Birthdate: 1955 Language: Libyan Race: White Ethnicity: Not nor Admit Date: 09/21/2016 Discharge Date: 09/25/2016 Attending Physician: Alirio Esparza MD Follow-up Recommendations for Providers: Please continue routine management of cardiovascular risk factors including blood pressure, lipids,glucose, etc. Please note any changes to medications. Patient to follow-up with PCP, Deborah Quiroga APRN, in 1-2 weeks. Patient to follow-up with Superintendent Maintenance Airports, Dr. Antelmo Burrell, in two weeks. Patient to follow-up with Cardiac Surgery, Dr. Alirio Esparza, to be scheduled for before 10/19/2016, with CXR, EKG, and Echo. Inpatient Provider Contact Information: [facility] Section of Cardiac Surgery [facility] [address] FAX [phone] Discharge Diagnoses (Hospital Problems) Primary Diagnoses: Secondary [...] 41.32) performed by Alirio Esparza MD at [facility] MAIN OR ??? Pro aortoplas for supravalv sten N/A 09/21/2016 @AORTOPLASTY FOR SUPRAVALVULAR STENOSIS (WRVU 29.33) performed by Alirio Esparza MD at [facility] MAIN OR Prior To Admission [...] Hospital Course: Purnima Thacker was admitted to [facility] on 09/21/2016 via the Same Day Program. [...] Alirio Esparza and/or the Cardiac Surgery Physician Ultimate Hoops Trainer Team may be reached at . Antibiotic prophylaxis: You will need to take antibiotics prior to many invasive tests and treatments, such as dental cleaning, which should be done every 6 months. Your primary care physician or your dentist can prescribe this medication. Please refer to the card with the [place] [employer] Guidelines for more information. You have been provided with 3 copies of this card. Keep one for your self. Give one to your primary care physician and one to your dentist. Please refer to the [place] Heart [employer] Guidelines for more information. Good [...] Dr. Alirio Jones. You may use a [place] or treadmill but avoid any pulling [...] friends, go to a movie, go to anglican, etc. Heavy activities: No hunting, skiing, jogging, [...] should resume a low fat, low cholesterol, [place] Heart Association Diet. Driving: No driving until [...] outpatient Phase 2 Cardiac Rehabilitation at [facility]. The patient agrees to a referral to this program. The referral will be sent at discharge and the patient should be contacted by the program within 1- 2 weeks from discharge. Future Appointments and Orders Future Appointments Provider Department Dept Phone 11/20/2016 11:30 AM Markel Borjas MD [facility] [phone] Future Orders Complete By Expires Echocardiogram Transthoracic([facility]) [LWL990 Custom] 10/18/2016 (Approximate) 09/18/2017 Process Instructions: If the Echocardiogram is to be PERFORMED in a location other than [place]--STOP and order [id number], Echocardiogram South/External. Scheduling Instructions: Questions: Is a Bubble Study requested?: No Does the patient have Congenital Heart Disease?: No Does patient require sedation?: None GA rationale: Should this service be billed to the research sponsor?: EKG 12 Lead [EKG1 Custom] 10/18/2016 (Approximate) 09/25/2017 Process Instructions: Scheduling Instructions: Questions: Which location will this be performed?: [place] Is a rhythm strip needed?: No If EKG Reason is Pre-op Evaluation, indicate diagnosis for surgery.: Should this service be billed to the research sponsor?: XR Chest PA & Lateral (Generic) [[id number] Custom] 10/18/2016 (Approximate) 09/25/2017 Process Instructions: Scheduling Instructions: Questions: Where will study be performed?: [facility]- Radiology Portable exam?: No Reason for exam and clinical history: s/p AVReplacement, patch annuloplasty 1 month f/u Other pertinent information: Stat read required?: Date of injury if applicable: Requested Time: Referral to Cardiac Rehab [SIA127 Custom] As directed Process Instructions: If no progress note charted, please enter Clinical details in comments. Scheduling Instructions: Questions: My question or request is: s/p AVR. Cardiac rehab at [facility] Referral to Home Health - at DISCHARGE [DUC8049 CPT(R)] As directed Process Instructions: Scheduling Instructions: Comments: DOCUMENTATION FOR VNA SERVICES (INCLUDING THOSE PATIENTS WITH MEDICARE COVERAGE REQUIRING HOME VNA SERVICES AND/OR HOSPICE SERVICES) PATIENT'S LOCATION: Purnima Thacker [address] [place] [phone] (home) No relevant phone numbers on file. Director Of Software Engineering's Name: self In discussion with the attending physician, it is certified that this patient is under their care and that they, or a Nurse Practitioner, or Physician Ultimate Hoops Trainer who is working directly with them, hada [...] for services as follows: HOME HEALTH AGENCY: [facility]. PHONE: [phone] FAX: [phone] RN orders: Cardiopulmonary assessment, incisional assessment, assess [...] issues please call the Cardiac SurgeryOffice at [phone] FOR MEDICARE ONLY: In discussion with the [...] noted. Questions: Agency name and contact information: [facility] Patient location post discharge: home What services are requested: Registered Nurse Physical Therapy Occupational Therapy Start date: Responsible MD post discharge contact info: Arrangements for VNA/home care: As above. VN RN OR PCP TO PLEASE REMOVE CHEST TUBE SUTURES ON OR AFTER 09/30/16 Signed: Crispin Aranda PA-C 09/25/2016 [facility] Section of Cardiac Surgery [facility] [address] FAX [phone] Date: 09/25/2016 CC: ANURAG Alford Caryn E, APRN [address] [place] [address] documented in this encounter Discharge Instructions * [...] Alirio Esparza and/or the Cardiac Surgery Physician Ultimate Hoops Trainer Team may be reached at . Antibiotic prophylaxis: You will need to take antibiotics prior to many invasive tests and treatments, such as dental cleaning, which should be done every 6 months. Your primary care physician or your dentist can prescribe this medication. Please refer to the card with the [place] Heart Association Guidelines for more information. You have been provided with 3 copies of this card. Keep one for your self. Give one to your primary care physician and one to your dentist. Please refer to the [place] Heart [employer] Guidelines for more information. Good [...] Dr. Alirio Jones. You may use a [place] Track or treadmill but avoid any pulling [...] friends, go to a movie, go to anglican, etc. Heavy activities: No hunting, skiing, jogging, [...] should resume a low fat, low cholesterol, [place] Heart Association Diet. Driving: No driving until [...] outpatient Phase 2 Cardiac Rehabilitation at [facility]. The patient agrees to a referral [...] PM EST Cardiac Surgery Progress Note: ID: [id number] S/p AVR, patch aortoplasty POD#2. PMH of [...] Gas) No results found for: PHART, PO2ART, DWJ3NSB Assessment/Plan: TPW out this am. (+) BM. [...] Signed: Crispin Aranda PA-C 09/24/2016 Team pager: [phone] after 5pm [facility] Section of Cardiac Surgery * Leonor Henson, COLLABORATING SUPERVISING PHYSICIAN - 09/23/2016 10:48 AM EST Cardiac Surgery Progress Note: ID: [id number] s/p AVR, patch aortoplasty POD#2. PMH of Neutropenia, HLD, HTN, Depression, obesity,. EF- 60% 24 Hour Events: transferred from [facility] to [facility], doing well, no overnight [...] Gas) No results found for: PHART, PO2ART, XQM7FTC Assessment/Plan: s/p AVR, patch aortoplasty POD#2. PMH of Neutropenia, HLD, HTN, Depression, obesity, . Transferred from [facility] yesterday and doing well. Pathway. Will [...] Surgeon on rounds. Signed: Leonor Henson APRN [facility] Section of Cardiac Surgery Date: 09/23/2016 * Nico Palacios PA - 09/22/2016 9:56 AM EST Cardiac Surgery Progress Note: ID: [id number] s/p AVR, patch aortoplasty POD#1. PMH of [...] NT, ND, soft. Ext: Moves all extremities. [place], well perfused. Incisions: C/D/I Tubes/Lines/Drains: PIV, leanna, [...] Attending Surgeon on rounds. Signed: EKATERINA KIM [facility] Section of Cardiac Surgery Date: 09/22/2016 * [...] home with outpatient services Lalitha Cohen [facility] [place] Pager: [phone] Inpatient Physical Therapy Patient status, treatment interventions, and goals discussed with student. I am in agreement with all details and associated flowsheet rows as documented and was present for all aspects of the patient treatment session. Nery Jaramillo, CONSTRUCTION SERVICES TECHNICIAN Pager [phone] Problem: Acute Rehab Services Goal & Intervention Plan Goal: Bed Mobility Goal Stand Alone Therapy Goal Outcome: Ongoing (Interventions Implemented as Appropriate) 09/22/16 16109/25/16 0947 Bed Mobility Goal Bed Mobility Goal, Time to Achieve 4 days -- Bed Mobility Goal, Activity Type scoot/bridge;supine to sit/sit to supine -- Bed Mobility Goal, [place] Level independent -- Bed Mobility Goal, Additional [...] Achieve 4 days -- Gait Training Goal, [place] Level independent -- Gait Training Goal, Distance [...] home with home health Lalitha BALTAZAR Pager: [phone] Inpatient Physical Therapy Patient status, treatment interventions, and goals discussed with student. I am in agreement with all details and associated flowsheet rows as documented and was present for all aspects of the patient treatment session. Nery Jaramillo PTA Pager [phone] Problem: Acute Rehab Services Goal & Intervention Plan Goal: Bed Mobility Goal Stand Alone Therapy Goal Outcome: Ongoing (Interventions Implemented as Appropriate) 09/22/16 1611 09/23/16 1412 Bed Mobility Goal Bed Mobility Goal, Time to Achieve 4 days -- Bed Mobility Goal, Activity Type scoot/bridge;supine to sit/sit to supine -- Bed Mobility Goal, [place] Level independent -- Bed Mobility Goal, Additional [...] Achieve 4 days -- Gait Training Goal, [place] Level independent -- Gait Training Goal, Distance [...] days -- Transfer Training Goal, Activity Type tlg-ct-mfvxt/nreld-zw-cty;tpd-aq-easmn/hwrzb-ow-ser -- Transfer Train Goal, [place] Level independent -- Transfer Training Goal, Additional Goal abides sternal precautions -- Transfer Training Goal, Outcome -- goal met * Consult Note - Jana Crenshaw RN - 09/23/2016 9:41 AM EST [facility] CARDIAC REHABILITATION Purnima Thacker was seen today regarding participation in the outpatient Phase 2 Cardiac Rehabilitation at [facility]. The patient agrees to a referral to this program. The referral will be sent at discharge and the patient should be contacted by the Program within 1- 2 weeks from discharge. * Plan of Care - Marcie Frazier RN - 09/23/2016 3:51 AM EST Problem: Patient Care Overview Goal: Plan of Care Review Outcome: Ongoing (Interventions Implemented as Appropriate) 09/23/16 8147 Coping/Psychosocial Plan Of Care Reviewed With patient [...] Another Service: (cardiac rehab) NICOLE HERNANDEZ, PT Pager:[phone] Inpatient Physical Therapy Problem: Acute Rehab Services Goal & Intervention Plan Goal: Bed Mobility Goal Stand Alone Therapy Goal Outcome: Ongoing (Interventions Implemented as Appropriate) 09/22/16 1611 Bed Mobility Goal Bed Mobility Goal, Time to Achieve 4 days Bed Mobility Goal, Activity Type scoot/bridge;supine to sit/sit to supine Bed Mobility Goal, [place] Level independent Bed Mobility Goal, Additional Goal able to abide sternal precautions during transfers Goal: Gait Training Goal Stand Alone Therapy Goal Outcome: Ongoing (Interventions Implemented as Appropriate) 09/22/16 1611 Gait Training Goal Gait Training Goal, Date Established 09/22/16 Gait Training Goal, Time to Achieve 4 days Gait Training Goal, [place] Level independent Gait Training Goal, Distance to Achieve ascend and descends 2 steps independently Goal: Goal Transfer Training Stand Alone Therapy Goal Outcome: Ongoing (Interventions Implemented as Appropriate) 09/22/16 1611 Goal Transfer Training Transfer Training Goal, Time to Achieve 4 days Transfer Training Goal, Activity Type ibs-bk-ehkdr/mvyqy-mw-gmc;ebt-xy-lsntt/ttbuc-id-eao Transfer Train Goal, [place] Level independent Transfer Training Goal, Additional Goal [...] of completing AD's at home, chooses her busvtp-yc-zha, Martha Thacker (home) for her DPOAH, 2nd choice in friend, [facility] [place] Current Coping/Education/Information Needs: patient sitting up in recliner, awake, alert, calmly answers questions appropriately, demonstrates understanding of her current health situation. [facility] [place] [facility]. Current Functional Ability: 1 assist, [...] close by, Rashad & [place], and her fddzea-iv-rdg Martha Thacker who she has chosen to be her DPOA. Also has a friend Nitesh Leroy who lives in [place], [place], also her DPOAH choice. Behavioral Health History: none on file in [facility] Substance Use/Abuse: none on file in [facility] Other Pertinent/Service Specific Information: none Health/Prescription Coverage: Primary Insurance: [employer] Secondary Insurance: none Prescription Coverage: yes, per patient no issues Preferred Pharmacy: ?? Other: none Primary Care Provider: Deborah Quiroga APRN [phone] Patient/Caregiver Goals of Treatment: per medical team recommendations at discharge for CT surgery Potential Needs for Transition of Care: Rehab/SNF: TBD Home Health: TBD DME: no Dialysis: no Community Resources: non3 Transportation: ride home with a friend Other: none Anticipated Barriers to Discharge/Special Considerations: none anticipated at this time Plan: patient will need VNA services at discharge. The patient/sales representative business courses has been provided a list of Home Health Agencies/DME vendors which servetheir preferred geographic area. A letter describing our affiliations was reviewed with them and they were educated about their right to choose where referrals are placed. Patient requests referral to: [email or web address]. PHONE: [phone] FAX: [phone] Expected date of discharge: Fri/Sat? CM called VNA to confirm referral, talked with VALDO Bunn/intake who stated she was familiar w/patient & would monitor her progress through curaspan. Referral routed to the Medicine Worker for matching with agency/vendor and to provide any required information. A member of the Care Management team will continue to monitor progress, follow for continuity of care and assist with transition of care planning. Amanda Moreno RN Pager: [phone] * Op Note - Alirio Esparza MD - 09/21/2016 12:53 PM EST 09/23/2016 Purnima Thacker 1955 [id number] Preoperative Diagnosis: Symptomatic aortic stenosis Postoperative Diagnosis: Symptomatic aortic stenosis Procedure: Aortic valve replacement: Bovine Pericardial 25 mm Surgeon: Alirio Esparza M.D. Ultimate Hoops Trainer: Philip BALL Anesthesia: General endotracheal anesthesia Drains: [...] Operative Note Patient Name: Purnima Thacker : [id number] MR#: [id number] Case Date: 09/21/2016 Surgeon: Surgeon(s) and Role: * Alirio Esparza MD - Primary * Nico Palacios PA - Physician Ultimate Hoops Trainer Preoperative diagnosis: Postoperative diagnosis: Procedure(s) (LRB): @REPLACE [...] AM EST Office [place] [address] Magdalena Peralta MD [facility] [place] [address] 03/01/2025 4:15 PM EDT Office Visit Dermatology at [address] [place] [address] Marek Bonilla MD [address] [place] [address] [place] [address] Scheduled Orders Name Type Priority Associated Diagnoses [...] IMPLANTABLE DEVICES SCAN 09/26/2016 12:00 AM EST ORDER PROCESSING SPECIALIST SCAN 09/26/2016 12:00 AM EST POTASSIUM Routine [...] SCAN EXT O RDR/RSLT * SCAN DOC: ORDER PROCESSING SPECIALIST (09/26/2016 12:00 AM EST) Anatomical Region Laterality Modality Other Narrative 09/26/2016 12:00 AM EST Ordered by an unspecified provider. Scanning Provider MEDIA MGR SCAN EXT O RDR/RSLT * Potassium (09/25/2016 4:32 AM EST) Pathologist [facility] Potassium 4.4 3.5 - 5.0 mmol/L [facility] ORDERABLE S [facility] [place] [address] * (ABNORMAL) Differential, Automated (09/24/2016 9:56 AM EST) Neutrophils % 76.8 % [facility] Neutr Abs (ANC) 7.79(H) 1.70 - 6.10 x10(3)/mc L [facility] Lymphocytes % 11.1 % [facility] Lymphocytes Abs 1.1 0.9 - 3.2 x10(3)/mc L [facility] Monocytes % 8.5 % [facility] Monocyte Abs 0.9 0.3 - 0.9 x10(3)/mc L [facility] Eosinophils % 0.5 % [facility] Eosinophils Abs 0.0 0.0 - 0.4 x10(3)/[facility] LABORATORY Basophils % 0.2 % [facility] Basophils Abs 0.0 0.0 - 0.1 x10(3)/[facility] LABORATORY Immature Gran % 2.90 % [facility] Comment: Immature granulocytes(IG's)percentage and absolute count will include metamyelocytes, myelocytes, and promyelocytes. Blood smears from CBCs yielding IG's will be scanned manually for concordance. If this scan disagrees with the automated IG or if promyelocytes are noted, a manual differential will be performed. Amanda Gran Abs 0.29(H) 0.00 - 0.04 x10(3)/[facility] LABORATORY Blood specimen (specimen) 09/24/2016 9:56 AM EST 09/24/2016 10:04 AM EST Narrative Resulting Agency Comment Spec In Lab Alirio Esparza MD HEMATOLOGY ORDERABL ES [facility] [place] [address] * (ABNORMAL) Hemogram (09/24/2016 9:56 AM EST) WBC 10.1(H) 4.0 - 9.5 x10(3)/[facility] LABORATORY RBC 2.87(L) 4.00 - 5.21 x10(6)/[facility] LABORATORY Hemoglobin 9.4(L) 11.7 - 15.5 gm/dL [facility] Hematocrit 28.3(L) 35.7 - 45.8 % [facility] MCV 98.6(H) 82.6 - 94.4 fL [facility] MCH 32.8(H) 27.1 - 32.0 pg [facility] MCHC 33.2 31.7 - 35.0 gm/dL [facility] Platelets 141(L) 145 - 357 x10(3)/[facility] LABORATORY RDWSD 45.0 37.0 - 46.0 fL [facility] RDWCV 12.6 11.5 - 14.1 % [facility] MPV 9.4 7.6 - 12.9 fL [facility] nRBC % Auto 1.1 % [facility] nRBC Abs Auto 0.110(H) 0.000 - 0.000 x10(3)/[facility] LABORATORY Blood specimen (specimen) 09/24/2016 9:56 AM EST 09/24/2016 10:04 AM EST Narrative Resulting Agency Comment Spec In Lab Alirio Esparza MD HEMATOLOGY ORDERABL ES [facility] [place] [address] * (ABNORMAL) Basic Metabolic Panel (non-fasting) (09/24/2016 9:56 AM EST) Glucose Lvl 111 65 - 199 mg/dL [facility] Comment:Diabetes: >=200 mg/d L plus symptoms BUN 23(H) 8 - 18 mg/dL [facility] Comment:result rechecked-ART Creatinine 0.89 0.70 - 1.20 mg/dL [facility] Comment: Please note that the pediatric reference intervals supplied above were not validated at [facility]. Results from pediatric patients should be interpreted in conjunction to the patient's age, height and muscle mass. Sodium 138 135 - 145 mmol/L [facility] Potassium 4.2 3.5 - 5.0 mmol/L [facility] Comment: Please note: ??Patients with WBC >100,000 may have falsely elevated Potassium levels. ??For accurate Potassium quantification in these patients send serum separator tube (gold top) for subsequent determinations. ??Contact the Clinical Chemistry Laboratory if there are any questions. Chloride 98 98 - 107 mmol/L [facility] CO2 26 22 - 31 mmol/L [facility] Anion Gap 14 5 - 15 mmol/L [facility] Calcium 9.1 8.5 - 10.5 mg/dL [facility] Estimated GFR >60 >=60 [facility] [...] the following links into your internet browser. [email or web address] Blood specimen (specimen) 09/24/2016 9:56 AM EST 09/24/2016 10:04 AM EST Narrative Resulting Agency Comment Spec In Lab Alirio Esparza MD CHEMISTRY ORDERABLE S [facility] [place] [address] * XR Chest PA & Lateral (Generic) [...] EST) Potassium 4.5 3.5 - 5.0 mmol/L [facility] [...] ORDERABLE S [facility] [place] [address] * POCT Glucose (09/22/2016 8:17 AM EST) POC Glucose 131 65 - 199 mg/dL [facility] Comment: Supplemental ranges: <140 mg/dL before meals <180 mg/dL all other times of the day Blood specimen (specimen) 09/22/2016 8:17 AM EST 09/22/2016 8:17 AM EST Narrative Authorizing Provider Result Slade Esparza MD POINT OF CARE TEST ORDERABLES [facility] [place] [address] * POCT Glucose (09/22/2016 4:01 AM EST) POC Glucose 135 65 - 199 mg/dL [facility] Comment: Supplemental ranges: <140 mg/dL before meals <180 mg/dL all other times of the day Blood specimen (specimen) 09/22/2016 4:01 AM EST 09/22/2016 4:01 AM EST Alirio Esparza MD POINT OF CARE TEST ORDERABLES Performing Organization Address [facility] Co de Phone Number [facility] [place] [address] * Scan, Peripheral Blood (09/22/2016 4:00 AM EST) Plat Estimate Normal [facility] RBC Morphology Abnormal [facility] Macrocytes 1-5 /HPF [facility] Giant Platelets Less than 1 /HPF [facility] Blood specimen (specimen) 09/22/2016 4:00 AM EST 09/22/2016 4:34 AM EST Narrative Resulting Agency Comment Spec In Lab Alirio Esparza MD HEMATOLOGY ORDERABL ES Performing Organization Address [facility] [facility] Co de Phone Number [facility] [place] [address] * Electrolytes panel (09/22/2016 4:00 AM EST) Sodium 145 135 - 145 mmol/L [facility] Potassium 4.4 3.5 - 5.0 mmol/L [facility] Comment: Please note: ??Patients with WBC >100,000 may have falsely elevated Potassium levels. ??For accurate Potassium quantification in these patients send serum separator tube (gold top) for subsequent determinations. ??Contact the Clinical Chemistry Laboratory if there are any questions. Chloride 107 98 - 107 mmol/L [facility] CO2 24 22 - 31 mmol/L [facility] Anion Gap 14 5 - 15 mmol/L [facility] Blood specimen (specimen) Venous Draw / Unknown 09/22/2016 4:00 AM EST 09/22/2016 4:34 AM EST Narrative Resulting Agency Comment Spec In Lab Alirio Esparza MD CHEMISTRY ORDERABLE S Performing Organization Address City/[facility] Co de Phone Number [facility] [place] [address] * (ABNORMAL) Differential, Automated (09/22/2016 4:00 AM EST) Neutrophils % 70.9 % [facility] Neutr Abs (ANC) 5.33 1.70 - 6.10 x10(3)/mc L [facility] Lymphocytes % 9.1 % [facility] Lymphocytes Abs 0.7(L) 0.9 - 3.2 x10(3)/[facility] LABORATORY Monocytes % 18.0 % [facility] Monocyte Abs 1.4(H) 0.3 - 0.9 x10(3)/[facility] LABORATORY Eosinophils % 0.0 % [facility] Eosinophils Abs 0.0 0.0 - 0.4 x10(3)/[facility] LABORATORY Basophils % 0.1 % [facility] Basophils Abs 0.0 0.0 - 0.1 x10(3)/[facility] LABORATORY Immature Gran % 1.90 % [facility] Comment: Immature granulocytes(IG's)percentage and absolute count will include metamyelocytes, myelocytes, and promyelocytes. Blood smears from CBCs yielding IG's will be scanned manually for concordance. If this scan disagrees with the automated IG or if promyelocytes are noted, a manual differential will be performed. Amanda Gran Abs 0.14(H) 0.00 - 0.04 x10(3)/[facility] LABORATORY Blood specimen (specimen) 09/22/2016 4:00 AM EST 09/22/2016 4:34 AM EST Narrative Resulting Agency Comment Spec In Lab Alirio Esparza MD HEMATOLOGY ORDERABL ES Performing Organization Address [facility]/ZIP Co de Phone Number [facility] [place] [address] * (ABNORMAL) Hemogram (09/22/2016 4:00 AM EST) [facility] WBC 7.5 4.0 - 9.5 x10(3)/[facility] LABORATORY RBC 2.93(L) 4.00 - 5.21 x10(6)/[facility] LABORATORY Hemoglobin 9.2(L) 11.7 - 15.5 gm/dL [facility] Hematocrit 28.0(L) 35.7 - 45.8 % [facility] MCV 95.6(H) 82.6 - 94.4 [facility]ATORY MCH 31.4 27.1 - 32.0 pg [facility] MCHC 32.9 31.7 - 35.0 gm/dL [facility] Platelets 161 145 - 357 x10(3)/[facility] RDWSD 44.0 37.0 - 46.0 [facility] LABORATORY RDWCV 12.6 11.5 - 14.1 % [facility] MPV 9.3 7.6 - 12.9 [facility] LABORATORY nRBC % Auto 0.3 % [facility] nRBC Abs Auto 0.020(H) 0.000 - 0.000 x10(3)/[facility] LABORATORY Blood specimen (specimen) 09/22/2016 4:00 AM EST 09/22/2016 4:34 AM EST Narrative Resulting Agency Comment Spec In Lab Alirio Esparza MD HEMATOLOGY ORDERABL ES Performing Organization Address [facility]/ZIP Co de Phone Number [facility] [place] [address] * (ABNORMAL) Cardiac Enzymes (09/22/2016 4:00 AM EST) [facility] Troponin-T 0.13(H) <=0.03 ng/mL [facility] Comment: 0.03 ng/mL: Represents the 99th percentile upper reference limit for normals. >0.03 ng/mL: Elevated cardiac troponin T level indicative of myocardial damage. Diagnosis of acute, evolving or recent [place] requires a typical rise and gradual fall [...] consensus document of the Joint Society of Cardiology/[place] College of Cardiology Committee for the redefinition of myocardial infarction. ??Journal of the [place] College of Cardiology 2000; 36: 959-969] CK, Total 338(H) 0 - 160 unit/L [facility] Blood specimen (specimen) 09/22/2016 4:00 AM EST 09/22/2016 4:34 AM EST Narrative Resulting Agency Comment Spec In Lab Alirio Esparza MD CHEMISTRY ORDERABLE S Performing Organization Address City/State/[facility] Co de Phone Number [facility] [place] [address] * (ABNORMAL) Glucose, fasting (09/22/2016 4:00 AM EST) Glucose Fasting 137(H) 65 - 99 mg/dL [facility] Comment: ?Fasting* Glucose Interpretive [...] of Diabetes Mellitus, Position Statement from the [place] Diabetes Association. ??Diabetes Care, Volume 33, Supplement 1, Aug 2009 Blood specimen (specimen) 09/22/2016 4:00 AM EST 09/22/2016 4:34 AM EST Narrative Resulting Agency Comment Spec In Lab Alirio Espraza MD CHEMISTRY ORDERABLE S Performing Organization Address [facility] Co de Phone Number [facility] [place] [address] * (ABNORMAL) Creatinine (09/22/2016 4:00 AM EST) Creatinine 0.69(L) 0.70 - 1.20 mg/dL [facility] Comment: Please note that the pediatric reference intervals supplied above were not validated at [facility]. Results from pediatric patients should be interpreted in conjunction to the patient's age, height and muscle mass. Estimated GFR >60 >=60 [facility] [...] the following links into your internet browser. [email or web address] Blood specimen (specimen) 09/22/2016 4:00 AM EST 09/22/2016 4:34 AM EST Narrative Resulting Agency Comment Spec In Lab Alirio Esparza MD CHEMISTRY ORDERABLE S Performing Organization Address [facility] Co de Phone Number [facility] [place] [address] * BUN (09/22/2016 4:00 AM EST) BUN 10 8 - 18 mg/dL [facility] Blood specimen (specimen) 09/22/2016 4:00 AM EST 09/22/2016 4:34 AM EST Narrative Resulting Agency Comment Spec In Lab Alirio Esparza MD CHEMISTRY ORDERABLE S Performing Organization Address [facility] Co de Phone Number [facility] [place] [address] * POCT Glucose (09/21/2016 9:59 PM EST) POC Glucose 146 65 - 199 mg/dL [facility] Comment: Supplemental ranges: <140 mg/dL before meals <180 mg/dL all other times of the day Blood specimen (specimen) 09/21/2016 9:59 PM EST 09/21/2016 9:59 PM EST lAirio Esparza MD POINT OF CARE TEST ORDERABLES Performing Organization Address [facility] Co de Phone Number [facility] [place] [address] * POCT Glucose (09/21/2016 7:26 PM EST) POC Glucose 152 65 - 199 mg/dL [facility] Comment: Supplemental ranges: <140 mg/dL before meals <180 mg/dL all other times of the day Blood specimen (specimen) 09/21/2016 7:26 PM EST 09/21/2016 7:26 PM EST Alirio Esparza MD POINT OF CARE TEST ORDERABLES Performing Organization Address [facility] Co de Phone Number [facility] [place] [address] * POCT Glucose (09/21/2016 6:00 PM EST) POC Glucose 146 65 - 199 mg/dL [facility] Comment: Supplemental ranges: <140 mg/dL before meals <180 mg/dL all other times of the day Blood specimen (specimen) 09/21/2016 6:00 PM EST 09/21/2016 6:00 PM EST Alirio Esparza MD POINT OF CARE TEST ORDERABLES [facility] [place] [address] * (ABNORMAL) BLOOD GAS 2 ARTERIAL (09/21/2016 4:42 PM EST) pH Art 7.35(L) 7.35 - 7.45 [facility] pCO2 Art 48(H) 35 - 45 mmHg [facility] pO2 Art 108(H) 85 - 104 mmHg [facility] HCO3 Art 26.0 20.0 - 26.0 mmol/L [facility] BE Art 0.5 -3.0 - 3.0 mmol/L [facility] Hgb Blood Gas 10.4(L) 11.7 - 15.5 gm/dL [facility] O2HB Art 96.2 94.0 - 97.0 % [facility] COHB Art 0.0 % [facility] Comment: Nonsmokers: 0.5-1.5% COHB Smokers: Variable, but usually less than 10% Toxic: 20-30% COHB Lethal: Greater than 60% COHB METHB Art 0.7 <=1.5 % [facility] Na Whole Blood 139 135 - 145 mmol/L [facility] K Whole Blood 4.2 3.5 - 5.0 mmol/L [facility] Comment: Please note: Patients with WBC >100,000 may have falsely elevated Potassium levels. Contact the Clinical Chemistry Laboratory if there are any questions. ICa Whole Blood 1.13(L) 1.15 - 1.33 mmol/L [facility] Comment: Note: ??Total bilirubin higher than 20 mg/dL may lead to falsely low ionized calcium. CL Whole Blood 106 98 - 107 mmol/L [facility] Gluc Whole Bld 147 65 - 199 mg/dL [facility] Comment:Diabetes: >=200 mg/d L plus symptoms. Lactate WB 1.2 0.5 - 2.2 mmol/L [facility] FIO2 Art 40 % [facility] PF Ratio Art 270 [facility] Blood specimen (specimen) 09/21/2016 4:42 PM EST 09/21/2016 4:42 PM EST Alirio Esparza MD CHEMISTRY ORDERABLE S Performing Organization Address [facility]/ZIP Co de Phone Number [facility] [place] [address] * POCT Glucose (09/21/2016 4:07 PM EST) POC Glucose 150 65 - 199 mg/dL [facility] Comment: Supplemental ranges: <140 mg/dL before meals <180 mg/dL all other times of the day Blood specimen (specimen) 09/21/2016 4:07 PM EST 09/21/2016 4:07 PM EST Alirio Esparza MD POINT OF CARE TEST ORDERABLES Performing Organization Address [facility] Co de Phone Number [facility] [place] [address] * (ABNORMAL) Hemoglobin (09/21/2016 4:05 PM EST) Hemoglobin 9.9(L) 11.7 - 15.5 gm/dL [facility] Blood specimen (specimen) 09/21/2016 4:05 PM EST 09/21/2016 4:20 PM EST Narrative Resulting Agency Comment Spec In Lab Alirio Esparza MD HEMATOLOGY ORDERABL ES Performing Organization Address [facility] Co de Phone Number [facility] [place] [address] * Potassium (09/21/2016 4:05 PM EST) Potassium 4.6 3.5 - 5.0 mmol/L [facility] MD CHEMISTRY ORDERABLE S Performing Organization Address [facility]/ZIP Co de Phone Number [facility] [place] [address] * POCT Glucose (09/21/2016 2:52 PM EST) POC Glucose 117 65 - 199 mg/dL [facility] Comment: Supplemental ranges: <140 mg/dL before meals <180 mg/dL all other times of the day Blood specimen (specimen) 09/21/2016 2:52 PM EST 09/21/2016 2:52 PM EST Alirio Esparza MD POINT OF CARE TEST ORDERABLES Performing Organization Address [facility] Co de Phone Number [facility] [place] [address] * POCT Glucose (09/21/2016 1:51 PM EST) POC Glucose 108 65 - 199 mg/dL [facility] Comment: Supplemental ranges: <140 mg/dL before meals <180 mg/dL all other times of the day Blood specimen (specimen) 09/21/2016 1:51 PM EST 09/21/2016 1:51 PM EST Alirio Esparza MD POINT OF CARE TEST ORDERABLES Performing Organization Address [facility] Co de Phone Number [facility] [place] [address] * POCT Glucose (09/21/2016 12:54 PM EST) POC Glucose 128 65 - 199 mg/dL [facility] Comment: Supplemental ranges: <140 mg/dL before meals <180 mg/dL all other times of the day Blood specimen (specimen) 09/21/2016 12:54 PM EST 09/21/2016 12:54 PM EST Narrative Authorizing Provider Result Slade Esparza MD POINT OF CARE TEST ORDERABLES Performing Organization Address [facility] Co de Phone Number [facility] [place] [address] * EKG 12 Lead (09/21/2016 12:26 PM EST) Pathologist [facility] Ventricular rate 87 BPM MUSE SYSTEM Atrial Rate 87 BPM MUSE SYSTEM P-R Interval 256 ms MUSE SYSTEM QRS Duration 90 ms MUSE SYSTEM Q-T Interval 406 ms MUSE SYSTEM QTC Calculated (Bezet) 488 ms MUSE SYSTEM Calculated P Albin 24 degrees MUSE SYSTEM Calculated R Albin 21 degrees MUSE SYSTEM Calculated T Albin -5 degrees MUSE SYSTEM INTERPRETATION Sinus rhythm with 1st degree A-V block Nonspecific T wave abnormality Prolonged QT Abnormal ECG When compared with ECG of 19-MAY-2016 11:43, MO interval has increased T wave inversion now evident in inferior and midanterior leads Confirmed by MD FRANKLYN, MARLEN ([id number]) on 09/21/2016 1:40:59 PM MUSE SYSTEM 09/21/2016 12:2 6 PM EST 09/21/2016 1:40 PM EST Alirio Esparza MD ECG ORDERABLES Performing Organization Address [facility] Co de Phone Number MUSE [...] course of the esophagus and below the [id number]. There is a right IJ PA catheter [...] the course of theesophagus and below the [id number]. There is a right IJ PA catheter [...] EST) pH Art 7.41 7.35 - 7.45 [facility] pCO2 Art 42 35 - 45 mmHg [facility] pO2 Art 356(H) 85 - 104 mmHg [facility] HCO3 Art 26.2(H) 20.0 - 26.0 mmol/L [facility] BE Art 1.6 -3.0 - 3.0 mmol/L [facility] Hgb Blood Gas 10.7(L) 11.7 - 15.5 gm/dL [facility] O2HB Art 98.1(H) 94.0 - 97.0 % [facility] COHB Art 0.3 % [facility] Comment: Nonsmokers: 0.5-1.5% COHB Smokers: Variable, but usually less than 10% Toxic: 20-30% COHB Lethal: Greater than 60% COHB METHB Art 0.8 <=1.5 % [facility] Na Whole Blood 140 135 - 145 mmol/L [facility] K Whole Blood 3.8 3.5 - 5.0 mmol/L [facility] Comment: Please note: Patients with WBC >100,000 may have falsely elevated Potassium levels. Contact the Clinical Chemistry Laboratory if there are any questions. ICa Whole Blood 1.15(L) 1.15 - 1.33 mmol/L [facility] Comment: Note: ??Total bilirubin higher than 20 mg/dL may lead to falsely low ionized calcium. CL Whole Blood 106 98 - 107 mmol/L [facility] Gluc Whole Bld 135 65 - 199 mg/dL [facility] Comment:Diabetes: >=200 mg/d L plus symptoms. Lactate WB 2.2 0.5 - 2.2 mmol/L [facility] FIO2 Art 100 % [facility] PF Ratio Art 356 [facility] Blood specimen (specimen) 09/21/2016 12:20 PM EST 09/21/2016 12:20 PM EST Alirio Esparza MD CHEMISTRY ORDERABLE S Performing Organization Address City/State/[facility] Co de Phone Number [facility] [place] [address] * (ABNORMAL) BLOOD GAS 2 ARTERIAL (09/21/2016 10:54 AM EST) pH Art 7.43 7.35 - 7.45 [facility] pCO2 Art 40 35 - 45 mmHg [facility] pO2 Art 297(H) 85 - 104 mmHg [facility] HCO3 Art 26.0 20.0 - 26.0 mmol/L [facility] BE Art 1.6 -3.0 - 3.0 mmol/L [facility] Hgb Blood Gas 8.6(L) 11.7 - 15.5 gm/dL [facility] O2HB Art 98.6(H) 94.0 - 97.0 % [facility] COHB Art 0.5 % [facility] Comment: Nonsmokers: 0.5-1.5% COHB Smokers: Variable, but usually less than 10% Toxic: 20-30% COHB Lethal: Greater than 60% COHB METHB Art 0.3 <=1.5 % [facility] Na Whole Blood 134(L) 135 - 145 mmol/L [facility] K Whole Blood 4.5 3.5 - 5.0 mmol/L [facility] Comment: Please note: Patients with WBC >100,000 may have falsely elevated Potassium levels. Contact the Clinical Chemistry Laboratory if there are any questions. ICa Whole Blood 1.16 1.15 - 1.33 mmol/L [facility] Comment: Note: ??Total bilirubin higher than 20 mg/dL may lead to falsely low ionized calcium. CL Whole Blood 104 98 - 107 mmol/L [facility] Gluc Whole Bld 240(H) 65 - 199 mg/dL [facility] Comment:Diabetes: >=200 mg/d L plus symptoms. Lactate WB 2.4(H) 0.5 - 2.2 mmol/L [facility] FIO2 Art 95 % [facility] Flow Art 0.7 LPM [facility] PF Ratio Art 313 [facility] Temp Art 36.7 Celsius [facility] Blood specimen (specimen) 09/21/2016 10:54 AM EST 09/21/2016 10:54 AM EST Alirio Esparza MD CHEMISTRY ORDERABLE S [facility] [place] [address] * Thrombin time (09/21/2016 10:50 AM EST) Thrombin Time 19 15 - 20 sec [facility] Comment: A prolongation in [...] ORDERABLE S Performing Organization Address [facility] Co de Phone Number [facility] [place] [address] * Fibrinogen (09/21/2016 10:50 AM EST) Fibrinogen 228 180 - 510 mg/dL [facility] Comment: Called by: JONNATHAN, Read back by: MICHELLE ALEJANDRE_, Date/Time:09/21/16 11:11. A fibrinogen level >100 mg/dL is adequate for hemostasis in most patients without underlying bleeding disorders. Blood specimen (specimen) 09/21/2016 10:50 AM EST 09/21/2016 10:56 AM EST Narrative Resulting Agency Comment Spec In Lab Luis Enrique Quarles MD HEMATOLOGY ORDERABLE S Performing Organization Address [facility] de Phone Number [facility] [place] [address] * APTT (09/21/2016 10:50 AM EST) PTT 32 25 - 35 sec [facility] Comment: The recommended therapeutic range for full dose, unfractionated heparin at [facility] is 80 ? 114 seconds. The use of the anti-Xa (heparin) level rather than the PTT is recommended for monitoring anticoagulation intensity in critically ill patients receiving unfractionated heparin by continuous IV infusion. Blood specimen (specimen) 09/21/2016 10:50 AM EST 09/21/2016 10:56 AM EST Narrative Resulting Agency Comment Spec In Lab Luis Enrique Quarles MD HEMATOLOGY ORDERABLE S Performing Organization Address City/[facility] Co de Phone Number [facility] [place] [address] * (ABNORMAL) Prothrombin Time (09/21/2016 10:50 AM EST) PT 18.7(H) 12.0 - 15.0 sec [facility] Comment: An INR <2.0 [...] Luis Enrique Quarles MD HEMATOLOGY ORDERABLE S [facility] [place] [address] * (ABNORMAL) Hemogram (09/21/2016 10:50 AM EST) WBC 14.7(H) 4.0 - 9.5 x10(3)/[facility] LABORATORY RBC 2.40(L) 4.00 - 5.21 x10(6)/[facility] LABORATORY Hemoglobin 7.9(L) 11.7 - 15.5 gm/dL [facility] Hematocrit 23.2(L) 35.7 - 45.8 % [facility] Comment: This result has been called to MICHELLE GRIGSBY by ASHU MORENO on 09 21 2016 at 1102, and has been read back. MCV 96.7(H) 82.6 - 94.4 fL [facility] MCH 32.9(H) 27.1 - 32.0 pg [facility] MCHC 34.1 31.7 - 35.0 gm/dL [facility] Platelets 117(L) 145 - 357 x10(3)/[facility] LABORATORY RDWSD 42.6 37.0 - 46.0 [facility] RDWCV 12.1 11.5 - 14.1 % [facility] MPV 9.2 7.6 - 12.9 [facility] nRBC % Auto 0.1 % [facility] nRBC Abs Auto 0.020(H) 0.000 - 0.000 x10(3)/[facility] LAB[facility]ATORY Blood specimen (specimen) 09/21/2016 10:50 AM EST 09/21/2016 10:56 AM EST Narrative Resulting Agency Comment Spec In Lab Luis Enrique Quarles MD HEMATOLOGY ORDERABLE S Performing Organization Address [facility] Co de Phone Number [facility] [place] [address] * Prepare Platelets, Apheresis (09/21/2016 10:30 AM EST) Dispensed? Yes [facility] Blood specimen (specimen) 09/21/2016 10:30 AM EST 09/21/2016 10:28 AM EST Alirio Esparza MD BLOOD BANK PRODUCT ORDERABLES Performing Organization Address [facility] Phone Number [facility] [place] [address] * (ABNORMAL) BLOOD GAS 2 ARTERIAL (09/21/2016 10:05 AM EST) pH Art 7.33(L) 7.35 - 7.45 [facility] pCO2 Art 54(Critic al) 35 - 45 mmHg [facility] Comment:Noted by medical instrument cable fabricator. pO2 Art 218(H) 85 - 104 mmHg [facility] HCO3 Art 27.9(H) 20.0 - 26.0 mmol/L [facility] BE Art 2.0 -3.0 - 3.0 mmol/L [facility] Hgb Blood Gas 8.6(L) 11.7 - 15.5 gm/dL [facility] O2HB Art 98.4(H) 94.0 - 97.0 % [facility] COHB Art 0.5 % [facility] Comment: Nonsmokers: 0.5-1.5% COHB Smokers: Variable, but usually less than 10% Toxic: 20-30% COHB Lethal: Greater than 60% COHB METHB Art 0.3 <=1.5 % [facility] Na Whole Blood 129(L) 135 - 145 mmol/L [facility] K Whole Blood 6.2(Criti gabrielle) 3.5 - 5.0 mmol/L [facility] Comment: Noted by medical instrument cable fabricator. Please note: Patients with WBC >100,000 may have falsely elevated Potassium levels. Contact the Clinical Chemistry Laboratory if there are any questions. ICa Whole Blood 0.95(L) 1.15 - 1.33 mmol/L [facility] Comment: Note: ??Total bilirubin higher than 20 mg/dL may lead to falsely low ionized calcium. CL Whole Blood 100 98 - 107 mmol/L [facility] [facility] Gluc Whole Bld 289(H) 65 - 199 mg/dL [facility] Comment:Diabetes: >=200 mg/d L plus symptoms. Lactate WB 2.2 0.5 - 2.2 mmol/L [facility] Temp Art 37.0 Celsius [facility] Blood specimen (specimen) 09/21/2016 10:05 AM EST 09/21/2016 10:05 AM EST Alirio Esparza MD CHEMISTRY ORDERABLE S [facility] [place] [address] * (ABNORMAL) BLOOD GAS 2 ARTERIAL (09/21/2016 9:44 AM EST) pH Art 7.22(Criti gabrielle) 7.35 - 7.45 [facility] Comment:Noted by medical instrument cable fabricator. pCO2 Art 70(Critica l) 35 - 45 mmHg [facility] Comment:Noted by medical instrument cable fabricator. pO2 Art 224(H) 85 - 104 mmHg [facility] HCO3 Art 27.8(H) 20.0 - 26.0 mmol/L [facility] BE Art 0.0 -3.0 - 3.0 mmol/L [facility] Hgb Blood Gas 8.7(L) 11.7 - 15.5 gm/dL [facility] O2HB Art 98.5(H) 94.0 - 97.0 % [facility] COHB Art 0.6 % [facility] Comment: Nonsmokers: 0.5-1.5% COHB Smokers: Variable, but usually less than 10% Toxic: 20-30% COHB Lethal: Greater than 60% COHB METHB Art 0.3 <=1.5 % [facility] Na Whole Blood 131(L) 135 - 145 mmol/L [facility] K Whole Blood 5.9(H) 3.5 - 5.0 mmol/L [facility] Comment: Please note: Patients with WBC >100,000 may have falsely elevated Potassium levels. Contact the Clinical Chemistry Laboratory if there are any questions. ICa Whole Blood 1.00(L) 1.15 - 1.33 mmol/L [facility] Comment: Note: ??Total bilirubin higher than 20 mg/dL may lead to falsely low ionized calcium. CL Whole Blood 101 98 - 107 mmol/L [facility] Gluc Whole Bld 227(H) 65 - 199 mg/dL [facility] Comment:Diabetes: >=200 mg/d L plus symptoms. Lactate WB 2.1 0.5 - 2.2 mmol/L [facility] Blood specimen (specimen) 09/21/2016 9:44 AM EST 09/21/2016 9:44 AM EST Alirio Esparza MD CHEMISTRY ORDERABLE S [facility] [place] [address] * (ABNORMAL) Hemoglobin (09/21/2016 9:42 AM EST) Hemoglobin 7.2(L) 11.7 - 15.5 gm/dL [facility] Blood specimen (specimen) 09/21/2016 9:42 AM EST 09/21/2016 9:51 AM EST Narrative Resulting Agency Comment Spec In Lab Alirio Esparza MD HEMATOLOGY ORDERABL ES [facility] [place] [address] * Platelet count (09/21/2016 9:42 AM EST) Platelets 159 145 - 357 x10(3)/mc L [facility] Plat Immature % 1.6 0.0 - 7.4 % [facility] Comment: Limitation of the Immature Platelet Fraction (IPF)-May be less reliable when the platelet count is less than 56r622/uL due to statistical imprecision. The IPF value [...] in a decreased state of production. References: [employer] The Clinical Value of the Immature Platelet Fraction (IPF) in Cell Recovery Document Number 10-1143 12/2010 [employer] The Role of the Immature Platelet Fraction (IPF) in the Differential Diagnosis of Thrombocytopenia, Document MKT-10-1209 V05/12/14 P05/14 Blood specimen (specimen) 09/21/2016 9:42 AM EST 09/21/2016 9:51 AM EST Narrative Resulting Agency Comment Spec In Lab Alirio Esparza MD HEMATOLOGY ORDERABL ES Performing Organization Address [facility] Co de Phone Number [facility] [place] [address] * (ABNORMAL) Hematocrit (09/21/2016 9:42 AM EST) Hematocrit 21.6(L) 35.7 - 45.8 % [facility] Comment: This result has been called to MICHELLE ALEJANDRE by Serjio Frazier on 09 21 2016 at 0957, and has been read back. Blood specimen (specimen) 09/21/2016 9:42 AM EST 09/21/2016 9:51 AM EST Narrative Resulting Agency Comment Spec In Lab Alirio Esparza MD HEMATOLOGY ORDERABL ES Performing Organization Address [facility] de Phone Number [facility] [place] [address] * Fibrinogen (09/21/2016 9:42 AM EST) Fibrinogen 219 180 - 510 mg/dL [facility] Comment: Called by: JONNATHAN, Read back by: MICHELLE ALEJANDRE_, Date/Time:09/21/16 10:03_. A fibrinogen level >100 mg/dL is adequate for hemostasis in most patients without underlying bleeding disorders. Blood specimen (specimen) 09/21/2016 9:42 AM EST 09/21/2016 9:51 AM EST Narrative Resulting Agency Comment Spec In Lab Alirio Esparza MD HEMATOLOGY ORDERABL ES Performing Organization Address [facility] Co de Phone Number [facility] [place] [address] * (ABNORMAL) BLOOD GAS 2 ARTERIAL (09/21/2016 9:10 AM EST) pH Art 7.36 7.35 - 7.45 [facility] pCO2 Art 48(H) 35 - 45 mmHg [facility] pO2 Art 295(H) 85 - 104 mmHg [facility] HCO3 Art 26.0 20.0 - 26.0 mmol/L [facility] BE Art 0.5 -3.0 - 3.0 mmol/L [facility] Hgb Blood Gas 8.0(L) 11.7 - 15.5 gm/dL [facility] O2HB Art 98.3(H) 94.0 - 97.0 % [facility] COHB Art 1.0 % [facility] Comment: Nonsmokers: 0.5-1.5% COHB Smokers: Variable, but usually less than 10% Toxic: 20-30% COHB Lethal: Greater than 60% COHB METHB Art 0.3 <=1.5 % [facility] Na Whole Blood 135 135 - 145 mmol/L [facility] K Whole Blood 5.4(H) 3.5 - 5.0 mmol/L [facility] Comment: Please note: Patients with WBC >100,000 may have falsely elevated Potassium levels. Contact the Clinical Chemistry Laboratory if there are any questions. ICa Whole Blood 0.93(L) 1.15 - 1.33 mmol/L [facility] Comment: Note: ??Total bilirubin higher than 20 mg/dL may lead to falsely low ionized calcium. CL Whole Blood 102 98 - 107 mmol/L [facility] Gluc Whole Bld 195 65 - 199 mg/dL [facility] Comment:Diabetes: >=200 mg/d L plus symptoms. Lactate WB 1.8 0.5 - 2.2 mmol/L [facility] Temp Art 37.0 Celsius [facility] Blood specimen (specimen) 09/21/2016 9:10 AM EST 09/21/2016 9:10 AM EST Alirio Esparza MD CHEMISTRY ORDERABLE S [facility] [place] [address] * Surgical Pathology Report (09/21/2016 9:09 AM EST) FINAL DIAGNOSIS (AP) [id number] ?Location: 3T The signing pathologist has (i) [...] ?. (R1) ??ADELITA 09/24/2016 9:32 AM EST [facility] 09/21/2016 9:09 AM EST Alirio Esparza MD PATHOLOGY/CYTOLOGY ORDERABLES [facility] [place] [address] * Specimen to Pathology (surgical or derm) (09/21/2016 9:09 AM EST) AP Specimen 09/21/2016 9:09 AM EST 09/21/2016 9:09 AM EST Narrative [facility] - 09/21/2016 9:09 AM EST Specimen requisition ordered. ??Separate Pathology report to follow Alirio Esparza MD PATHOLOGY/CYTOLOGY ORDERABLES [facility] [place] [address] * (ABNORMAL) BLOOD GAS 2 ARTERIAL (09/21/2016 8:50 AM EST) pH Art 7.41 7.35 - 7.45 [facility] pCO2 Art 33(L) 35 - 45 mmHg [facility] pO2 Art 348(H) 85 - 104 mmHg [facility] HCO3 Art 20.6 20.0 - 26.0 mmol/L [facility] BE Art -4.1(L) -3.0 - 3.0 mmol/L [facility] Hgb Blood Gas 9.5(L) 11.7 - 15.5 gm/dL [facility] O2HB Art 98.8(H) 94.0 - 97.0 % [facility] COHB Art 0.3 % [facility] Comment: Nonsmokers: 0.5-1.5% COHB Smokers: Variable, but usually less than 10% Toxic: 20-30% COHB Lethal: Greater than 60% COHB METHB Art 0.3 <=1.5 % [facility] Na Whole Blood 137 135 - 145 mmol/L [facility] K Whole Blood 4.0 3.5 - 5.0 mmol/L [facility] Comment: Please note: Patients with WBC >100,000 may have falsely elevated Potassium levels. Contact the Clinical Chemistry Laboratory if there are any questions. ICa Whole Blood 1.04(L) 1.15 - 1.33 mmol/L [facility] Comment: Note: ??Total bilirubin higher than 20 mg/dL may lead to falsely low ionized calcium. CL Whole Blood 105 98 - 107 mmol/L [facility] Gluc Whole Bld 93 65 - 199 mg/dL [facility] Comment:Diabetes: >=200 mg/d L plus symptoms. Lactate WB 1.0 0.5 - 2.2 mmol/L [facility] Blood specimen (specimen) 09/21/2016 8:50 AM EST 09/21/2016 8:50 AM EST Alirio Esparza MD CHEMISTRY ORDERABLE S [facility] [place] [address] * (ABNORMAL) BLOOD GAS 2 ARTERIAL (09/21/2016 8:18 AM EST) pH Art 7.42 7.35 - 7.45 [facility] pCO2 Art 36 35 - 45 mmHg [facility] pO2 Art 283(H) 85 - 104 mmHg [facility] HCO3 Art 22.8 20.0 - 26.0 mmol/L [facility] BE Art -2.0 -3.0 - 3.0 mmol/L [facility] Hgb Blood Gas 12.6 11.7 - 15.5 gm/dL [facility] O2HB Art 99.0(H) 94.0 - 97.0 % [facility] COHB Art 0.6 % [facility] Comment: Nonsmokers: 0.5-1.5% COHB Smokers: Variable, but usually less than 10% Toxic: 20-30% COHB Lethal: Greater than 60% COHB METHB Art 0.0 <=1.5 % [facility] Na Whole Blood 144 135 - 145 mmol/L [facility] K Whole Blood 4.0 3.5 - 5.0 mmol/L [facility] Comment: Please note: Patients with WBC >100,000 may have falsely elevated Potassium levels. Contact the Clinical Chemistry Laboratory if there are any questions. ICa Whole Blood 1.22 1.15 - 1.33 mmol/L [facility] Comment: Note: ??Total bilirubin higher than 20 mg/dL may lead to falsely low ionized calcium. CL Whole Blood 106 98 - 107 mmol/L [facility] Gluc Whole Bld 102 65 - 199 mg/dL [facility] Comment:Diabetes: >=200 mg/d L plus symptoms. Lactate WB 1.2 0.5 - 2.2 mmol/L [facility] FIO2 Art 95 % [facility] Flow Art 1.1 LPM [facility] PF Ratio Art 298 [facility] Temp Art 35.6 Celsius [facility] Blood specimen (specimen) 09/21/2016 8:18 AM EST 09/21/2016 8:18 AM EST Alirio Esparza MD CHEMISTRY ORDERABLE S Performing Organization Address City/[facility]/ZIP Co de Phone Number [facility] [place] [address] * Prepare RBC (09/21/2016 7:05 AM EST) Dispensed? Yes [facility] Blood specimen (specimen) 09/21/2016 7:05 AM EST 09/21/2016 7:02 AM EST Alirio Esparza MD BLOOD BANK PRODUCT ORDERABLES Performing Organization Address [facility] Co de Phone Number [facility] [place] [address] * POCT Glucose (09/21/2016 6:42 AM EST) POC Glucose 104 65 - 199 mg/dL [facility] Comment: Supplemental ranges: <140 mg/dL before meals <180 mg/dL all other times of the day Blood specimen (specimen) 09/21/2016 6:42 AM EST 09/21/2016 6:42 AM EST Alirio Esparza MD POINT OF CARE TEST ORDERABLES Performing Organization Address [facility] Co de Phone Number [facility] [place] [address] documented in this encounter Visit Diagnoses Diagnosis [...] dose on Wed09/21/16 at 1230, Until Discontinued, [place] teeth, Routine Given 09/25/2016 9:40 AM EST [...] if phenyleprine and/or vasopressin ineffective.Call pager # [phone] if initiated., Routine Rate/Dose Change 09/21/2016 2:27 [...] 2.0 L/min/M2. Maximum volume 2 L. Call warehouseman for additional fluid orders: pager #[phone]. Rate/Dose Verify 09/22/2016 10:00 AM EST 10 [...] Alie Whitfield RN)1150 (Given - Provider: Marek aBrnes RN)1852 (Given - Provider: Chaya Hill RN) 0000 (Not Given - Provider: Alie [place]field RN - Reason: Patient/family refused)0600 (Not Given - Provider: Breanna Olivas RN - Reason: Patient/family refused)0942 (Given - Provider: Joselyn Caceres RN - Comment: not given at 0600)1600 (Due - Provider: Kendall Martínez [facility]) aspirin chewable tablet 81 mg(Linked Group [...] dose on Wed09/21/16 at 1230, Until Discontinued, [place] teeth, Routine 0900 (Not Given - Provider: [...] Miguel RN) 08 (Given - Provider: Marek Barnse, VALDO) 0941 (Given - Provider: Joselyn Caceres, [...] Routine documented in this encounter Care Teams Rail Doweling Machine Operator Relationship Specialty Start Date End Date Deborah Quiroga APRN PCP - General Family Medicine 03/24/16 02/04/23 documented as of this encounter
--- OUTSIDE RECORDS SUMMARY | 2024-02-24 14:02 | XMS_ITS | Encounter Summary ---
Author Organization [facility] Address [facility] [place] [address] Care Team Providers Care Maintenance Analyst Name Role Phone Deborah Quiroga APRN Primary Care Provider [phone] Encounter Details Date Type Department Care Team (Late st Contact Info) Description 02/06/2020 Orders Only Hematology [place] [phone] Markel Borjas MD [facility] [place] [address] Neutropenia, unspecified type Social History Tobacco Use [...] 11:30 AM EST Office [place] [phone] Magdalena Peralta MD [facility] [address] 03/01/2025 4:15 PM EDT Office Visit Dermatology at [address] [phone] Marek Bonilla MD [address] [place] [address] [place] [address] documented as of this encounter Visit Diagnoses Diagnosis Neutropenia, unspecified type documented in this encounter Care Teams Maintenance Analyst Relationship Specialty Start Date End Date Deborah Quiroga, PRODUCTION QUALITY ANALYST PCP - General Family Medicine 03/24/16 02/04/23 documented as of this encounter
--- OUTSIDE RECORDS SUMMARY | 2024-02-24 14:02 | XMS_ITS | Encounter Summary ---
[place] [address] Care Team Providers Care Director Of Grants Name Role Phone Ashley Quirogazac Shields APRN Primary Care Provider [phone] Reason for Visit * Reason Comments Skin Check Encounter Details Date Type Department Care Team (Late st Contact Info) Description 11/11/2020 10:45 AM EDT Office Visit Dermatology at [address] [phone] Marek Bonilla MD [address] [facility] DERMATOLOGY [place], [place] [id number] Rosacea; Acrochordon Social History Tobacco Use Types [...] Discussed the possibility of getting this through [facility] or from the [facility] if necessary. She has not yet [...] 11:30 AM EST Office [place] [address] Magdalena Peralta MD [facility] [place] [address] 03/01/2025 4:15 PM EDT Office Visit Dermatology at [address] [place] [address] Marek Bonilla MD [address] [place] [address] [place] [address] documented as of this encounter Visit Diagnoses Diagnosis Rosacea Acrochordon Unspecified hypertrophic and atrophic condition of skin documented in this encounter Care Teams Director Of Grants Relationship Specialty Start Date End Date Deborah Quiroga APRN PCP - General Family Medicine 03/24/16 02/04/23 documented as of this encounter
--- OUTSIDE RECORDS SUMMARY | 2024-02-24 14:02 | XMS_ITS | Encounter Summary ---
Author Organization [facility] Address [facility] [place] [address] Care Team Providers Care Manager Sterile Name Role Phone Deborah Quiroga Cornelius OSBORN Primary Care Provider [phone] Encounter Details Date Type Department Care Team (Late st Contact Info) Description 01/13/2021 Refill Dermatology at [address] [phone] Taylor Malone, CHECK WRITER SALESPERSON Social History Tobacco Use Types Packs/Day Years [...] 11:30 AM EST Office [place] [address] Magdalena Peralta MD [facility] [place] [address] 03/01/2025 4:15 PM EDT Office Visit Dermatology at [address] [phone] Marek Bonilla MD [address] [place] [address] DERMATOLOGY [place], [place] [phone] documented as of this encounter Visit Diagnoses Not on filedocumented in this encounter Care Teams Manager Sterile Relationship Specialty Start Date End Date Deborah Quiroga APRN PCP - General Family Medicine 03/24/16 02/04/23 documented as of this encounter
--- OUTSIDE RECORDS SUMMARY | 2024-02-24 14:02 | XMS_ITS | Encounter Summary ---
Author Organization [facility] Address [facility] [place] [address] Care Team Providers Care Sweeper Brush Maker Machine Name Role Phone Deborah Quiroga APRN Primary Care Provider [phone] Encounter Details Date Type Department Care Team (Late st Contact Info) Description 06/18/2017 11:00 AM EST Office Visit Hematology and On[facility] at [facility] [place] [phone] Markel Borjas MD [facility] [place] [address] Neutropenia, unspecified type Social History Tobacco Use [...] AM EST Hematology Outpatient Clinic [facility] Hematology Outpatient Consult Note CC: 60 [...] TOUCH PREP, CLOT SECTION, CORE ??BIOPSY); [OSR# [id number], COLLECTED 06/23/2016, 19 SLIDES]: ?1. 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 Past Medical/Surgical History: 1. Leukopenia -element of neutropenia, as noted above 2. Aortic Stenosis -severe -AVR surgery 3. Hypercholesterolemia 4. Depression 5. Hypertension 6. Obesity Social History: TOB - neg ETOH - neg Works at [employer] in [employer] department Plays competitive scrabble, and goes to [employer] Family History: No known primary marrow disorders [...] intact. Extremities: No edema. Labs: Hgb= 13 Vmpc=865 ANC= 0.6 Imaging As above - reviewed [...] 11:30 AM EST Office [place] [address] Magdalena Peralta MD [facility] [place] [address] 03/01/2025 4:15 PM EDT Office Visit Dermatology at [place] [address] [facility] [place] [phone] Marek Bonilla MD [address] [place] [address] [place] [address] documented as of this encounter Visit Diagnoses Diagnosis Neutropenia, unspecified type documented in this encounter Care Teams Sweeper Brush Maker Machine Relationship Specialty Start Date End Date Deborah Quiroga APRN PCP - General Family Medicine 03/24/16 02/04/23 documented as of this encounter
--- OUTSIDE RECORDS SUMMARY | 2024-02-24 14:02 | XMS_ITS | Encounter Summary ---
Author Organization [facility] Address [facility] Erika lópez[place] [address] Care Team Providers Care Turning Machine Set Up Operator Name Role Phone Deborah Quiroga APRN Primary Care Provider [phone] Encounter Details Date Type Department Care Team (Late st Contact Info) Description 06/05/2021 Interpretation Only [address] [phone] Deborah Quiroga APRN [address] [id number] Social History Tobacco Use Types Packs/Day Years [...] EST Office [place] [address] Magdalena Peralta MD [facility] [place] [address] 03/01/2025 4:15 PM EDT Office Visit Dermatology at [place] [address] [facility] [place] [phone] Marek Bonilla MD [address] [facility] [place] [address] documented as of this encounter Procedures Procedure Name Priority Date/Time Associated Diagnosis Comments DXA CENTRAL SPINE, HIP, AND/OR WHOLE BODY (GENERIC) Routine 06/05/2021 11:58 AM EDT documented in this encounter Results * DXA Central Spine, Hip, and/or Whole Body (Generic) (06/05/2021 11:58 AM EDT) PT CLASS O RAD ADMITDTTM RAD PT RAD INFO [id number]^E VERETT^DEBORAH ^E RAD EXAM DESC XDXAC^DEXA SCAN [...] who have questions please contact the health health care aide that requested your imaging first. ? [...] patients who have questions please contactthe health health care aide that requested your imaging first. Electronically signed by: Rocael Villatoro MD, [facility]([phone]), at 06/05/2021 12:00 PM Deborah Quiroga APRN IMGerman DEXA ORDERABLES documented in this encounter Visit Diagnoses Not on filedocumented in this encounter Care Teams Turning Machine Set Up Operator Relationship Specialty Start Date End Date Deborah Quiroga APRN PCP - General Family Medicine 03/24/16 02/04/23 documented as of this encounter
--- OUTSIDE RECORDS SUMMARY | 2024-02-24 14:02 | XMS_ITS | Encounter Summary ---
Author Organization [facility] [place] [address] Care Team Providers Care Raisin Separator Operator Name Role Phone Deborah Quiroga ANURAG Primary Care Provider [phone] Encounter Details Date Type Department Care Team (Late st Contact Info) Description 12/04/2016 External Results Hematology [place] [phone] Teresa Dodson RN Social History Tobacco Use [...] 11:30 AM EST Office [place] [phone] Magdalena Peralta MD [facility] [place] [address] 03/01/2025 4:15 PM EDT Office Visit Dermatology at [address] [phone] Marek Bonilla MD [address] [place] [address] [place] [address] documented as of this encounter Procedures Procedure Name Priority Date/Time Associated Diagnosis Comments CBC (WITH DIFF) Routine 12/03/2016 11:35 AM EDT COMPREHENSIVE METABOLIC PANEL (NON-FASTING) Routine 12/03/2016 11:35 AM EDT documented in this encounter Results * (ABNORMAL) Comprehensive metabolic panel (non-fasting) (12/03/2016 11:35 AM EDT) Glucose Lvl 85(Externa l Lab) BUN 11(Externa l Lab) Creatinine 0.93(Exter nal Lab) Sodium 140(Rehabilitator al Lab) Potassium 4.2(Rehabilitator al Lab) Chloride 104(Rehabilitator al Lab) Calcium 10.0(Exter nal Lab) Total Protein 8.1(Rehabilitator al Lab) Albumin 3.5(Rehabilitator al Lab) Total Bilirubin 0.25(Exter nal Lab) Alk Phos 96(Externa l Lab) AST 18(Externa l Lab) ALT 21(Externa l Lab) Blood specimen (specimen) 12/03/2016 11:35 AM EDT Historical Provider CHEMISTRY ORDERAB LES * (ABNORMAL) CBC (with Diff) (12/03/2016 11:35 AM EDT) WBC 1.61(EXTER NAL/ABN) 4.4 - 10.8 Hemoglobin 13.0(Exter nal Lab) Hematocrit 39.8(Exter nal Lab) Platelets 248(Rehabilitator al Lab) Neutr Abs (ANC) 0.5(C UNIX DEVELOPER AL/ABN) Blood specimen (specimen) 12/03/2016 11:35 AM EDT Historical Provider HEMATOLOGY ORDERA BLES documented in this encounter Visit Diagnoses Not on filedocumented in this encounter Care Teams Raisin Separator Operator Relationship Specialty Start Date End Date Deborah Quiroga, SUPERVISOR DEHYDROGENATION PCP - General Family Medicine 03/24/16 02/04/23 documented as of this encounter
--- OUTSIDE RECORDS SUMMARY | 2024-02-24 14:02 | XMS_ITS | Encounter Summary ---
Author Organization [facility] Address [facility] Erika lópez[place] [address] Care Team Providers Care Certified Nurses' Aide Name Role Phone Deborah Quiroga APRN Primary Care Provider [phone] Encounter Details Date Type Department Care Team (Late st Contact Info) Description 06/05/2021 Interpretation Only [address] [phone] Deborah Quiroga APRN [address] [id number] Social History Tobacco Use Types Packs/Day Years [...] 11:30 AM EST Office [place] [address] Magdalena Peralta MD [facility] [place] [address] 03/01/2025 4:15 PM EDT Office Visit Dermatology at [place] [address] [facility] [place] [phone] Marek Bonilla MD [address] [facility] [place] [place] [address] documented as of this encounter Procedures Procedure Name Priority Date/Time Associated Diagnosis Comments MAMMO SCREENING CAD AND ERLIN BILATERAL Routine 06/05/2021 11:42 AM EDT documented in this encounter Results * Mammo Screening Cad and Erlin Bilateral (06/05/2021 11:42 AM EDT) PT CLASS O DH RAD ADMITDTTM DH RAD PT DH RAD MD INFO [phone]^EVERET T^DEBORAH^E DH RAD EXAM DESC MADDSCTO^BREAST SCREEN [...] who have questions please contact the health managed care nurse that requested your imaging first. ? Electronically signed by: Rocael Villatoro MD, [facility] ([phone]), at 06/05/2021 1:27 PM Narrative 06/05/2021 1:27 [...] patients who have questions please contactthe health managed care nurse that requested your imaging first. Electronically signed by: Rocael Villatoro MD, [facility]([phone]), at 06/05/2021 1:27 PM Deborah Quiroga APRN IMG MAMMO ORDERABLE S documented in this encounter Visit Diagnoses Not on filedocumented in this encounter Care Teams Certified Nurses' Aide Relationship Specialty Start Date End Date Deborah Quiroga APRN PCP - General Family Medicine 03/24/16 02/04/23 documented as of this encounter
--- OUTSIDE RECORDS SUMMARY | 2024-02-24 14:02 | XMS_ITS | Encounter Summary ---
[place] [address] Care Team Providers Care Lathmaker Name Role Phone JunaidDeborah APRN Primary Care Provider [phone] Reason for Visit * Reason Comments Follow-up Encounter Details Date Type Department Care Team (Late st Contact Info) Description 01/10/2021 4:30 PM EDT Office Visit Dermatology at [address] [phone] Marek Bonilla MD [address] [facility] DERMATOLOGY [place], [place] [phone] Rosacea Social History Tobacco Use Types Packs/Day [...] cutaneous and ocular 2. Previously told by foundation assistant that she had corneal tears from [...] 3 refills. Will call this in her [facility] pharmacy in [place] 3. Continue metronidazole 0.75% gel applying once [...] 11:30 AM EST Office [place] [address] Magdalena Peralta MD [facility] [place] [address] 03/01/2025 4:15 PM EDT Office Visit Dermatology at [place] [address] [place] [phone] Marek Bonilla MD [address] [facility] [place] [address] documented as of this encounter Visit Diagnoses Diagnosis Rosacea documented in this encounter Care Teams Lathmaker Relationship Specialty Start Date End Date Deborah Quiroga APRN PCP - General Family Medicine 03/24/16 02/04/23 documented as of this encounter
--- OUTSIDE RECORDS SUMMARY | 2024-02-24 14:03 | XMS_ITS | Encounter Summary ---
[place] [address] Care Team Providers Care Park Services Specialist Name Role Phone Ashley Quirogan Cornelius ANURAG Primary Care Provider [phone] Reason for Visit * Reason Onset Date Comments Medication Management 09/14/2016 Encounter Details Date Type Department Care Team (Late st Contact Info) Description 09/14/2016 Telephone Hematology [place] [phone] Alexandrea Greenwood, principal cloud architect Management Social History Tobacco Use Types Packs/Day [...] 09/14/2016 9:12 AM EST Message received from litigation secretary: Purnima called, asking for clarification on [...] 11:30 AM EST Office [place] [address] Magdalena Peralta MD [facility] [address] [place] [address] 03/01/2025 4:15 PM EDT Office Visit Dermatology at [place] [address] [place] [phone] Marek Bonilla MD [address] [facility] [place] [address] documented as of this encounter Visit Diagnoses Not on filedocumented in this encounter Care Teams Park Services Specialist Relationship Specialty Start Date End Date Deborah Quiroga APRN PCP - General Family Medicine 03/24/16 02/04/23 documented as of this encounter
--- OUTSIDE RECORDS SUMMARY | 2024-02-24 14:03 | XMS_ITS | Encounter Summary ---
Author Organization [facility] Address [facility] [place] [address] Care Team Providers Care Production Control Pegboard Clerk Name Role Phone Ashley Quirogan Cornelius ANURAG Primary Care Provider [phone] Encounter Details Date Type Department Care Team (Latest Contact Info) Description 06/19/2016 - 06/19/2016 11:59 PM EST Hospital Encounter [place] [phone] Nitesh Pina Jr., MD [facility] HEMATOLOGY/[facility] [address] Pain Discharge Disposition: Home Social History Tobacco [...] 11:30 AM EST Office [place] [address] Magdalena Peralta MD [facility] [place] [address] 03/01/2025 4:15 PM EDT Office Visit Dermatology at [address] [address] Marek Bonilla MD [address] [facility] [place] [address] documented as of this encounter Procedures Procedure Name Priority Date/Time Associated Diagnosis Comments FILM LIBRARY STORAGE ONLY CT CHEST ABDOMEN PELVIS Routine 06/19/2016 12:00 AM EST Pain documented in this encounter Results * Film Library- Storage Only CT Chest Abdomen Pelvis (06/19/2016 12:00 AM EST) Narrative [facility] - 06/20/2016 8:53 AM EST This exam is for storage only and is auto-finalizing. Nitesh Pina Jr., MD IMG FILM LIBRARY ORD ERABLES [place], [place] documented in this encounter Visit Diagnoses Diagnosis Pain Generalized pain documented in this encounter Care Teams Production Control Pegboard Clerk Relationship Specialty Start Date End Date Deborah Quiroga APRN PCP - General Family Medicine 03/24/16 02/04/23 documented as of this encounter
--- OUTSIDE RECORDS SUMMARY | 2024-02-24 14:03 | XMS_ITS | Encounter Summary ---
Author Organization [facility] [place] [address] Care Team Providers Care Stone Mason Name Role Phone Ashley Quirogazac Shields APRN Primary Care Provider [phone] Reason for Visit * Auth/Cert Specialty Diagnoses / Procedures Referred By Crispin t Referred To Contact Diagnoses Aortic stenosis Procedures PRO REPLACE AORT VALV, PROSTH VALV @REPLACE AORTIC VALVE, OPEN, W\CPB, W\PROSTHETIC VALVE (WRVU 41.32) Referral ID Status Reason Start Date Expiration Date Visits Re quested Visits Authorized [id number] 1 1 Encounter Details Date Type Department Care Team (Late st Contact Info) Description 09/21/2016 7:30 AM EST - 09/21/2016 12:04 PM EST Surgery [place] [address] Alirio Esparza MD [facility] [place] [address] @REPLACE AORTIC VALVE, OPEN, W\CPB, W\PROSTHETIC VALVE [...] Patient Age: 61 y.o. Birthdate: 1955 Language: Russian Race: White Ethnicity: Not nor Admit Date: 09/21/2016 Discharge Date: 09/25/2016 Attending Physician: Alirio Esparza MD Follow-up Recommendations for Providers: Please continue routine management of cardiovascular risk factors including blood pressure, lipids,glucose, etc. Please note any changes to medications. Patient to follow-up with PCP, Deborah Quiroga APRN, in 1-2 weeks. Patient to follow-up with Treatment Counselor, Dr. Antelmo Burrell, in two weeks. Patient to follow-up with Cardiac Surgery, Dr. Alirio Esparza, to be scheduled for before 10/19/2016, with CXR, EKG, and Echo. Inpatient Provider Contact Information: [facility] Section of Cardiac Surgery [facility] [address] FAX [phone] Discharge Diagnoses (Hospital Problems) Primary Diagnoses: Secondary [...] @REPLACE AORTIC VALVE, OPEN, W\CPB, W\[facility]OSTHETIC VALVE [facility] performed by Alirio Esparza MD at [facility] MAIN OR ??? Pro aortoplas for supravalv sten N/A 09/21/2016 @AORTOPLASTY FOR SUPRAVALVULAR STENOSIS (VU 29.33) performed by Alirio Esparza MD at [facility] MAIN OR Prior To Admission Medications Prescriptions [...] Hospital Course: Purnima Thacker was admitted to [facility] on 09/21/2016 via the Same [...] Alirio Esparza and/or the Cardiac Surgery Physician Rn Surgery Icu Team may be reached at . Antibiotic prophylaxis: You will need to take antibiotics prior to many invasive tests and treatments, such as dental cleaning, which should be done every 6 months. Your primary care physician or your dentist can prescribe this medication. Please refer to the card with the [place] [employer] Guidelines for more information. You have been provided with 3 copies of this card. Keep one for your self. Give one to your primary care physician and one to your dentist. Please refer to the [place] [employer] Guidelines for more information. Good [...] Dr. Alirio Jones. You may use a [place] Track or treadmill but avoid any pulling [...] friends, go to a movie, go to episcopal, etc. Heavy activities: No hunting, skiing, jogging, [...] should resume a low fat, low cholesterol, [place] [employer] Diet. Driving: No driving until [...] AM Markel Borjas MD [facility] Hem Onc [phone] Future Orders Complete By Expires Echocardiogram Transthoracic([facility]) [XGS477 Custom] 10/18/2016 (Approximate) 09/18/2017 Process Instructions: If the Echocardiogram is to be PERFORMED in a location other than [place]--STOP and order [id number], Echocardiogram South/External. Scheduling Instructions: Questions: Is a Bubble Study requested?: No Does the patient have Congenital Heart Disease?: No Does patient require sedation?: None GA rationale: Should this service be billed to the research sponsor?: EKG 12 Lead [EKG1 Custom] 10/18/2016 (Approximate) 09/25/2017 Process Instructions: Scheduling Instructions: Questions: Which location will this be performed?: [place] Is a rhythm strip needed?: No If EKG Reason is Pre-op Evaluation, indicate diagnosis for surgery.: Should this service be billed to the research sponsor?: XR Chest PA & Lateral (Generic) [[id number] Custom] 10/18/2016 (Approximate) 09/25/2017 Process Instructions: Scheduling Instructions: Questions: Where will study be performed?: [facility]- Radiology Portable exam?: No Reason for exam and clinical history: s/p AVReplacement, patch annuloplasty 1 month f/u Other pertinent information: Stat read required?: Date of injury if applicable: Requested Time: Referral to Cardiac Rehab [EBT159 Custom] As directed Process Instructions: If no progress note charted, please enter Clinical details in comments. Scheduling Instructions: Questions: My question or request is: s/p AVR. Cardiac rehab at [facility] Referral to Home Health - at DISCHARGE [HGB4669 CPT(R)] As directed Process Instructions: Scheduling Instructions: Comments: DOCUMENTATION FOR VNA SERVICES (INCLUDING THOSE PATIENTS WITH MEDICARE COVERAGE REQUIRING HOME VNA SERVICES AND/OR HOSPICE SERVICES) PATIENT'S LOCATION: Purnima M Kirstie [address] [place] [phone] (home) No relevant phone numbers on file. Apprentice Photographer's Name: self In discussion with the attending physician, it is certified that this patient is under their care and that they, or a Nurse Practitioner, or Physician Rn Surgery Icu who is working directly with them, hada [...] AGENCY: [facility] PHONE: [phone] FAX: [phone] RN orders: Cardiopulmonary assessment, incisional assessment, assess [...] issues please call the Cardiac SurgeryOffice at [phone] FOR MEDICARE ONLY: In discussion with the [...] noted. Questions: Agency name and contact information: [facility] VNA Patient location post discharge: home What services are requested: Registered Nurse Physical Therapy Occupational Therapy Start date: Responsible MD post discharge contact info: Arrangements for VNA/home care: As above. VN RN OR PCP TO PLEASE REMOVE CHEST TUBE SUTURES ON OR AFTER 09/30/16 Signed: Crispin Aranda PA-C 09/25/2016 [facility] of Card[facility] Surgery [facility] [address] FAX [phone] Date: 09/25/2016 CC: ANURAG Alford Caryn E, APRN [address] [place] [address] documented in this encounter Discharge Instructions * [...] Alirio Esparza and/or the Cardiac Surgery Physician Rn Surgery Icu Team may be reached at . Antibiotic prophylaxis: You will need to take antibiotics prior to many invasive tests and treatments, such as dental cleaning, which should be done every 6 months. Your primary care physician or your dentist can prescribe this medication. Please refer to the card with the [place] [employer] Guidelines for more information. You have been provided with 3 copies of this card. Keep one for your self. Give one to your primary care physician and one to your dentist. Please refer to the [place] [employer] Guidelines for more information. Good [...] Dr. Alirio Jones. You may use a [place] Track or treadmill but avoid any pulling [...] friends, go to a movie, go to episcopal, etc. Heavy activities: No hunting, skiing, jogging, [...] should resume a low fat, low cholesterol, [place] [employer] Diet. Driving: No driving until [...] PM EST Cardiac Surgery Progress Note: ID: [id number] S/p AVR, patch aortoplasty POD#2. PMH of [...] Gas) No results found for: PHART, PO2ART, GBC2IIY Assessment/Plan: TPW out this am. (+) BM. [...] Signed: Crispin Aranda PA-C 09/24/2016 Team pager: [phone]; [phone] after 5pm [facility] Section of Cardiac Surgery * Leonor Henson S, YOUTH DEVELOPMENT SPECIALIST - 09/23/2016 10:48 AM EST Cardiac Surgery Progress Note: ID: [id number] s/p AVR, patch aortoplasty POD#2. PMH of [...] Gas) No results found for: PHART, PO2ART, PVY1FED Assessment/Plan: s/p AVR, patch aortoplasty POD#2. PMH of Neutropenia, HLD, HTN, Depression, obesity, . Transferred from [facility] yesterday and doing well. Pathway. Will [...] Surgeon on rounds. Signed: Leonor Henson APRN [facility] Section of Cardiac Surgery Date: 09/23/2016 * Nico Palacios PA - 09/22/2016 9:56 AM EST Cardiac Surgery Progress Note: ID: [id number] s/p AVR, patch aortoplasty POD#1. PMH of [...] NT, ND, soft. Ext: Moves all extremities. [place], well perfused. Incisions: C/D/I Tubes/Lines/Drains: PIV, leanna, [...] Attending Surgeon on rounds. Signed: EKATERINA KIM [facility] Section of Cardiac Surgery Date: [...] Outcome (s) achieved Date Met: 09/25/16 09/25/16 2424 Coping/Psychosocial Plan Of Care Reviewed With patient [...] with outpatient services Lalitha Cohen SPTA Pager: [phone] Inpatient Physical Therapy Patient status, treatment interventions, and goals discussed with student. I am in agreement with all details and associated flowsheet rows as documented and was present for all aspects of the patient treatment session. Nery Jaramillo PTA Pager [phone] Problem: Acute Rehab Services Goal & Intervention Plan Goal: Bed Mobility Goal Stand Alone Therapy Goal Outcome: Ongoing (Interventions Implemented as Appropriate) 09/22/16 1611 09/25/16 0947 Bed Mobility Goal Bed Mobility Goal, Time to Achieve 4 days -- Bed Mobility Goal, Activity Type scoot/bridge;supine to sit/sit to supine -- Bed Mobility Goal, [place] Level independent -- Bed Mobility Goal, Additional [...] Achieve 4 days -- Gait Training Goal, [place] Level independent -- Gait Training Goal, Distance [...] * Plan of Care - Nery Jaramillo RETICLE PRINTER - 09/23/2016 2:23 PM EST Problem: Patient [...] home with home health Lalitha Radha Cohen [facility] Pager: [phone] Inpatient Physical Therapy Patient status, treatment interventions, and goals discussed with student. I am in agreement with all details and associated flowsheet rows as documented and was present for all aspects of the patient treatment session. Nery Jaramillo PTA Pager [phone] Problem: Acute Rehab Services Goal & Intervention Plan Goal: Bed Mobility Goal Stand Alone Therapy Goal Outcome: Ongoing (Interventions Implemented as Appropriate) 09/22/16161009/23/161411 Bed Mobility Goal Bed Mobility Goal, Time to Achieve 4 days -- Bed Mobility Goal, Activity Type scoot/bridge;supine to sit/sit to supine -- Bed Mobility Goal, [place] Level independent -- Bed Mobility Goal, Additional [...] Achieve 4 days -- Gait Training Goal, [place] Level independent -- Gait Training Goal, Distance [...] days -- Transfer Training Goal, Activity Type btt-qx-wklmj/mqtoe-dy-sey;cpb-cd-amxro/ectba-uk-czx -- Transfer Train Goal, [place] Level independent -- Transfer Training Goal, Additional Goal abides sternal precautions -- Transfer Training Goal, Outcome -- goal met * Consult Note - Jana Crenshaw RN - 09/23/2016 9:41 AM EST [facility] Purnima Thacker was seen today [...] Another Service: (cardiac rehab) NICOLE HERNANDEZ, PT Pager:[phone] Inpatient Physical Therapy Problem: Acute Rehab Services Goal & Intervention Plan Goal: Bed Mobility Goal Stand Alone Therapy Goal Outcome: Ongoing (Interventions Implemented as Appropriate) 09/22/16 1611 Bed Mobility Goal Bed Mobility Goal, Time to Achieve 4 days Bed Mobility Goal, Activity Type scoot/bridge;supine to sit/sit to supine Bed Mobility Goal, [place] Level independent Bed Mobility Goal, Additional Goal able to abide sternal precautions during transfers Goal: Gait Training Goal Stand Alone Therapy Goal Outcome: Ongoing (Interventions Implemented as Appropriate) 09/22/16 1611 Gait Training Goal Gait Training Goal, Date Established 09/22/16 Gait Training Goal, Time to Achieve 4 days Gait Training Goal, [place] Level independent Gait Training Goal, Distance to Achieve ascend and descends 2 steps independently Goal: Goal Transfer Training Stand Alone Therapy Goal Outcome: Ongoing (Interventions Implemented as Appropriate) 09/22/16 1611 Goal Transfer Training Transfer Training Goal, Time to Achieve 4 days Transfer Training Goal, Activity Type zml-jw-yxkgn/voaml-rr-jcu;zxe-gh-ihhyl/nvcow-nj-kyp Transfer Train Goal, [place] Level independent Transfer Training Goal, Additional Goal [...] of completing AD's at home, chooses her ooxrva-ym-jhc, Martha Thacker (home) for her DPOAH, 2nd choice in friend, Nitesh Leroy, [place], [place] Current Coping/Education/Information Needs: patient sitting up [...] close by, Rashad & Raymond, and her ztujeq-kx-wks Martha Thacker who she has chosen to be her DPOAH. Also has a friend Nitesh Leroy who lives in [place], [place], also her DPOAH choice. Behavioral Health History: none on file in [facility] Substance Use/Abuse: none on file in [facility] Other Pertinent/Service Specific Information: none Health/Prescription Coverage: Primary Insurance: [employer] Secondary Insurance: none Prescription Coverage: yes, per patient no issues Preferred Pharmacy: ?? Other: none Primary Care Provider: Deborah Quiroga, YOUTH DEVELOPMENT SPECIALIST [phone] Patient/Caregiver Goals of Treatment: per medical team recommendations at discharge for CT surgery Potential Needs for Transition of Care: Rehab/SNF: TBD Home Health: TBD DME: no Dialysis: no Community Resources: non3 Transportation: ride home with a friend Other: none Anticipated Barriers to Discharge/Special Considerations: none anticipated at this time Plan: patient will need VNA services at discharge. The patient/passenger relations representative has been provided a list of Home Health Agencies/DME vendors which servetheir preferred geographic area. A letter describing our affiliations was reviewed with them and they were educated about their right to choose where referrals are placed. Patient requests referral to: [facility] PHONE: [phone] FAX: [phone] Expected date of discharge: Fri/Sat? CM called VNA to confirm referral, talked with VALDO Bunn/intake who stated she was familiar w/patient & would monitor her progress through curaspan. Referral routed to the Punch Finisher for matching with agency/vendor and to provide any required information. A member of the Care Management team will continue to monitor progress, follow for continuity of care and assist with transition of care planning. Amanda Moreno RN Pager: [phone] * Op Note - Alirio Esparza MD - 09/21/2016 12:53 PM EST 09/23/2016 Purnima Thacker 1955 [id number] Preoperative Diagnosis: Symptomatic aortic stenosis Postoperative Diagnosis: Symptomatic aortic stenosis Procedure: Aortic valve replacement: Bovine Pericardial 25 mm Surgeon: Alirio Esparza M.D. Rn Surgery Icu: Philip BALL Anesthesia: General endotracheal anesthesia Drains: [...] applied. The patient was transported to the [facility] on levo. All counts were correct. [...] Operative Note Patient Name: Purnima Thacker : [id number] MR#: [id number] Case Date: 09/21/2016 Surgeon: Surgeon(s) and Role: * Alirio Esparza MD - Primary * Nico Palacios PA - Physician Rn Surgery Icu Preoperative diagnosis: Postoperative diagnosis: Procedure(s) (LRB): @REPLACE [...] 11:30 AM EST [place] [address] Magdalena Peralta MD [facility] [place] [address] 03/01/2025 4:15 PM EDT Office Visit Dermatology at [place] [address] [place] [id number] Marek Bonilla MD [address] [facility] [address] Scheduled Orders Name Type Priority Associated Diagnoses [...] IMPLANTABLE DEVICES SCAN 09/26/2016 12:00 AM EST COMBAT SYSTEMS OPERATOR [employer] SCAN 09/26/2016 12:00 AM EST POTASSIUM Routine [...] 4:00 AM EST CARDIAC ENZYMES ([facility]) Routine 09/22/2016 4:00 AM EST CREATININE Routine [...] SCAN EXT O RDR/RSLT * SCAN DOC: COMBAT SYSTEMS OPERATOR [employer] (09/26/2016 12:00 AM EST) Anatomical Region Laterality Modality Other Narrative 09/26/2016 12:00 AM EST Ordered by an unspecified provider. Scanning Provider MEDIA MGR SCAN EXT O RDR/RSLT * Potassium (09/25/2016 4:32 AM EST) Potassium 4.4 3.5 - 5.0 mmol/L [facility] [...] MD CHEMISTRY ORDERABLE S Performing Organization Address City/State/[facility] Co de Phone Number [facility] [place] [address] * (ABNORMAL) Differential, Automated (09/24/2016 9:56 AM EST) Pathologist [facility] Neutrophils % 76.8 % [facility] Neutr Abs (ANC) 7.79(H) 1.70 - 6.10 x10(3)/mc L [facility] Lymphocytes % 11.1 % [facility] Lymphocytes Abs 1.1 0.9 - 3.2 x10(3)/mc L [facility] Monocytes % 8.5 % [facility] Monocyte Abs 0.9 0.3 - 0.9 x10(3)/mc L [facility] Eosinophils % 0.5 % [facility] Eosinophils Abs 0.0 0.0 - 0.4 x10(3)/mc L [facility] Basophils % 0.2 % [facility] Basophils Abs 0.0 0.0 - 0.1 x10(3)/mc L [facility] Immature Gran % 2.90 % [facility] Comment: Immature granulocytes(IG's)percentage and absolute count will include metamyelocytes, myelocytes, and promyelocytes. Blood smears from CBCs yielding IG's will be scanned manually for concordance. If this scan disagrees with the automated IG or if promyelocytes are noted, a manual differential will be performed. Amanda Gran Abs 0.29(H) 0.00 - 0.04 x10(3)/ L [facility] Blood specimen (specimen) 09/24/2016 9:56 AM EST 09/24/2016 10:04 AM EST Narrative Resulting Agency Comment Spec In Lab Alirio Esparza MD HEMATOLOGY ORDERABL ES [facility] [place] [address] * (ABNORMAL) Hemogram (09/24/2016 9:56 AM EST) WBC 10.1(H) 4.0 - 9.5 x10(3)/[facility] LABORATORY RBC 2.87(L) 4.00 - 5.21 x10(6)/[facility] LABORATORY Hemoglobin 9.4(L) 11.7 - 15.5 gm/dL [facility] Hematocrit 28.3(L) 35.7 - 45.8 % [facility] MCV 98.6(H) 82.6 - 94.4 fL [facility] MCH 32.8(H) 27.1 - 32.0 pg [facility] MCHC 33.2 31.7 - 35.0 gm/dL [facility] Platelets 141(L) 145 - 357 x10(3)/[facility] LABORATORY RDWSD 45.0 37.0 - 46.0 [facility] RDWCV 12.6 11.5 - 14.1 % [facility] MPV 9.4 7.6 - 12.9 [facility] nRBC % Auto 1.1 % [facility] nRBC Abs Auto 0.110(H) 0.000 - 0.000 x10(3)/[facility] LABORATORY Blood specimen (specimen) 09/24/2016 9:56 AM EST 09/24/2016 10:04 AM EST Narrative Resulting Agency Comment Spec In Lab Alirio Esparza MD HEMATOLOGY ORDERABL ES [facility] [place] [address] * (ABNORMAL) Basic Metabolic Panel (non-fasting) (09/24/2016 [...] above were not validated at [facility]. Results from pediatric patients should be interpreted [...] [facility] Estimated GFR >60 >=60 [facility] Comment: This estimated GFR (eGFR) [...] the following links into your internet browser. [email or web address] Blood specimen (specimen) 09/24/2016 9:56 AM EST 09/24/2016 10:04 AM EST Narrative Resulting Agency Comment Spec In Lab Alirio Esparza MD CHEMISTRY ORDERABLE S [facility] [place] [id number] * XR Chest PA & Lateral (Generic) [...] MD CHEMISTRY ORDERABLE S Performing Organization Address City/[facility] Co de Phone Number [facility] [place] [address] * POCT Glucose (09/22/2016 8:17 AM EST) [facility] Signature POC Glucose 131 65 - 199 mg/dL [facility] Comment: Supplemental ranges: <140 mg/dL before meals <180 mg/dL all other times of the day Blood specimen (specimen) 09/22/2016 8:17 AM EST 09/22/2016 8:17 AM EST Alirio Esparza MD POINT OF CARE TEST ORDERABLES Performing Organization Address [facility] Co de Phone Number [facility] [place] [address] * POCT Glucose (09/22/2016 4:01 AM EST) [facility] Signature POC Glucose 135 65 - 199 mg/dL [facility] Comment: Supplemental ranges: <140 mg/dL before meals <180 mg/dL all other times of the day Blood specimen (specimen) 09/22/2016 4:01 AM EST 09/22/2016 4:01 AM EST Alirio Esparza MD POINT OF CARE TEST ORDERABLES Performing Organization Address City/[facility] Co de Phone Number [facility] [place] [address] * Scan, Peripheral Blood (09/22/2016 4:00 AM EST) Plat Estimate Normal [facility] RBC Morphology Abnormal [facility] Macrocytes 1-5 /HPF [facility] Giant Platelets Less than 1 /HPF [facility] Blood specimen (specimen) 09/22/2016 4:00 AM EST 09/22/2016 4:34 AM EST Narrative Resulting Agency Comment Spec In Lab Alirio Esparza MD HEMATOLOGY ORDERABL ES Performing Organization Address [facility] Co de Phone Number [facility] [place] [address] * Electrolytes panel (09/22/2016 4:00 AM EST) Pathologist [facility] Sodium 145 135 - 145 mmol/L [facility] [...] MD CHEMISTRY ORDERABLE S Performing Organization Address City/[facility]/ZIP Co de Phone Number [facility] [place] [address] * (ABNORMAL) Differential, Automated (09/22/2016 4:00 AM EST) Neutrophils % 70.9 % [facility] Neutr Abs (ANC) 5.33 1.70 - 6.10 x10(3)/mc L [facility] Lymphocytes % 9.1 % [facility] Lymphocytes Abs 0.7(L) 0.9 - 3.2 x10(3)/[facility] LABORATORY Monocytes % 18.0 % [facility] Monocyte Abs 1.4(H) 0.3 - 0.9 x10(3)/[facility] LABORATORY Eosinophils % 0.0 % [facility] Eosinophils Abs 0.0 0.0 - 0.4 x10(3)/[facility] LABORATORY Basophils % 0.1 % [facility] Basophils Abs 0.0 0.0 - 0.1 x10(3)/[facility] LABORATORY Immature Gran % 1.90 % [facility] Comment: Immature granulocytes(IG's)percentage and absolute count will include metamyelocytes, myelocytes, and promyelocytes. Blood smears from CBCs yielding IG's will be scanned manually for concordance. If this scan disagrees with the automated IG or if promyelocytes are noted, a manual differential will be performed. Amanda Gran Abs 0.14(H) 0.00 - 0.04 x10(3)/[facility] LABORATORY Blood specimen (specimen) 09/22/2016 4:00 AM EST 09/22/2016 4:34 AM EST Narrative Resulting Agency Comment Spec In Lab Alirio Esparza MD HEMATOLOGY ORDERABL ES [facility] [place] [address] * (ABNORMAL) Hemogram (09/22/2016 4:00 AM EST) WBC 7.5 4.0 - 9.5 x10(3)/[facility] LABORATORY RBC 2.93(L) 4.00 - 5.21 x10(6)/[facility] LABORATORY Hemoglobin 9.2(L) 11.7 - 15.5 gm/dL [facility] Hematocrit 28.0(L) 35.7 - 45.8 % [facility] MCV 95.6(H) 82.6 - 94.4 fL [facility] MCH 31.4 27.1 - 32.0 pg [facility] MCHC 32.9 31.7 - 35.0 gm/dL [facility] Platelets 161 145 - 357 x10(3)/[facility] LABORATORY RDWSD 44.0 37.0 - 46.0 fL [facility] RDWCV 12.6 11.5 - 14.1 % [facility] [facility]ATORY MPV 9.3 7.6 - 12.9 fL [facility] nRBC % Auto 0.3 % [facility] nRBC Abs Auto 0.020(H) 0.000 - 0.000 x10(3)/[facility] LABORATORY Blood specimen (specimen) 09/22/2016 4:00 AM EST 09/22/2016 4:34 AM EST Narrative Resulting Agency Comment Spec In Lab Alirio Esparza MD HEMATOLOGY ORDERABL ES [facility] [place] [address] * (ABNORMAL) Cardiac Enzymes (09/22/2016 4:00 AM EST) Troponin-T 0.13(H) <=0.03 ng/mL [facility] Comment: 0.03 ng/mL: Represents the 99th percentile upper reference limit for normals. >0.03 ng/mL: Elevated cardiac troponin T level indicative of myocardial damage. Diagnosis of acute, evolving or recent [place] requires a typical rise and gradual fall [...] consensus document of the Joint Society of Cardiology/[place] [employer] Committee for the redefinition of myocardial infarction. ??Journal of the [place] [employer] 2000; 36: 959-969] CK, Total 338(H) 0 - 160 unit/L [facility] Blood specimen (specimen) 09/22/2016 4:00 AM EST 09/22/2016 4:34 AM EST Narrative Resulting Agency Comment Spec In Lab Alirio Esparza MD CHEMISTRY ORDERABLE S Performing Organization Address [facility] Co de Phone Number [facility] [place] [address] * (ABNORMAL) Glucose, fasting (09/22/2016 4:00 AM [...] of Diabetes Mellitus, Position Statement from the [place] [employer] Association. ??Diabetes Care, Volume 33, Supplement 1, Aug 2009 Blood specimen (specimen) 09/22/2016 4:00 AM EST 09/22/2016 4:34 AM EST Narrative Resulting Agency Comment Spec In Lab Alirio Esparza MD CHEMISTRY ORDERABLE S Performing Organization Address [facility] Co de Phone Number [facility] [place] [address] * (ABNORMAL) Creatinine (09/22/2016 4:00 AM EST) Creatinine 0.69(L) 0.70 - 1.20 mg/dL [facility] Comment: Please note that the pediatric reference intervals supplied above were not validated [place] [facility]. Results from pediatric patients should be interpreted in conjunction to the patient's age, height and muscle mass. Estimated GFR >[address] [facility] Comment: This estimated GFR (eGFR) [...] the following links into your internet browser. [email or web address] Blood specimen (specimen) 09/22/2016 4:00 AM EST 09/22/2016 4:34 AM EST Narrative Resulting Agency Comment Spec In Lab Alirio Esparza MD CHEMISTRY ORDERABLE S Performing Organization Address [facility] Co de Phone Number [facility] [place] [address] * BUN (09/22/2016 4:00 AM EST) BUN 10 8 - 18 mg/dL [facility] Blood specimen (specimen) 09/22/2016 4:00 AM EST 09/22/2016 4:34 AM EST Narrative Resulting Agency Comment Spec In Lab Alirio Esparza MD CHEMISTRY ORDERABLE S Performing Organization Address [facility] Co de Phone Number [facility] [place] [address] * POCT Glucose (09/21/2016 9:59 PM EST) POC Glucose 146 65 - 199 mg/dL [facility] Comment: Supplemental ranges: <140 mg/dL before meals <180 mg/dL all other times of the day Blood specimen (specimen) 09/21/2016 9:59 PM EST 09/21/2016 9:59 PM EST Alirio Esparza MD POINT OF CARE TEST ORDERABLES Performing Organization Address [facility] Co de Phone Number [facility] [place] [address] * POCT Glucose (09/21/2016 7:26 PM EST) POC Glucose 152 65 - 199 mg/dL [facility] Comment: Supplemental ranges: <140 mg/dL before meals <180 mg/dL all other times of the day Blood specimen (specimen) 09/21/2016 7:26 PM EST 09/21/2016 7:26 PM EST Alirio Esparza MD POINT OF CARE TEST ORDERABLES Performing Organization Address [facility] Co de Phone Number [facility] [place] [address] * POCT Glucose (09/21/2016 6:00 PM EST) POC Glucose 146 65 - 199 mg/dL [facility] Comment: Supplemental ranges: <140 mg/dL before meals <180 mg/dL all other times of the day Blood specimen (specimen) 09/21/2016 6:00 PM EST 09/21/2016 6:00 PM EST Alirio Esparza MD POINT OF CARE TEST ORDERABLES Performing Organization Address [facility] Co de Phone Number [facility] [place] [address] * (ABNORMAL) BLOOD GAS 2 ARTERIAL (09/21/2016 [...] [facility] COHB Art 0.0 % [facility] Comment: Nonsmokers: 0.5-1.5% COHB Smokers: Variable, but usually less than 10% Toxic: 20-30% COHB Lethal: Greater than 60% COHB METHB Art 0.7 <=1.5 % [facility] Na Whole Blood 139 135 [...] [facility] FIO2 Art 40 % [facility] PF Ratio Art 270 [facility] Blood specimen (specimen) 09/21/2016 4:42 PM EST 09/21/2016 4:42 PM EST Alirio Esparza MD CHEMISTRY ORDERABLE S [facility] [place] [address] * POCT Glucose (09/21/2016 4:07 PM EST) POC Glucose 150 65 - 199 mg/dL [facility] Comment: Supplemental ranges: <140 mg/dL before meals <180 mg/dL all other times of the day Blood specimen (specimen) 09/21/2016 4:07 PM EST 09/21/2016 4:07 PM EST Alirio Esparza MD POINT OF CARE TEST ORDERABLES Performing Organization Address [facility] Co de Phone Number [facility] [place] [address] * (ABNORMAL) Hemoglobin (09/21/2016 4:05 PM EST) Hemoglobin 9.9(L) 11.7 - 15.5 gm/dL [facility] Blood specimen (specimen) 09/21/2016 4:05 PM EST 09/21/2016 4:20 PM EST Narrative Resulting Agency Comment Spec In Lab Alirio Esparza MD HEMATOLOGY ORDERABL ES Performing Organization Address [facility] Co de Phone Number [facility] [place] [address] * Potassium (09/21/2016 4:05 PM EST) [facility] Potassium 4.6 3.5 - 5.0 mmol/L [facility] [...] MD CHEMISTRY ORDERABLE S Performing Organization Address [facility] Co de Phone Number [facility] [place] [address] * POCT Glucose (09/21/2016 2:52 PM EST) POC Glucose 117 65 - 199 mg/dL [facility] Comment: Supplemental ranges: <140 mg/dL before meals <180 mg/dL all other times of the day Blood specimen (specimen) 09/21/2016 2:52 PM EST 09/21/2016 2:52 PM EST Alirio Esparza MD POINT OF CARE TEST ORDERABLES Performing Organization Address [facility] Co de Phone Number [facility] [place] [address] * POCT Glucose (09/21/2016 1:51 PM EST) POC Glucose 108 65 - 199 mg/dL [facility] Comment: Supplemental ranges: <140 mg/dL before meals <180 mg/dL all other times of the day Blood specimen (specimen) 09/21/2016 1:51 PM EST 09/21/2016 1:51 PM EST Alirio Esparza MD POINT OF CARE TEST ORDERABLES Performing Organization Address [facility] Co de Phone Number [facility] [place] [address] * POCT Glucose (09/21/2016 12:54 PM EST) POC Glucose 128 65 - 199 mg/dL [facility] Comment: Supplemental ranges: <140 mg/dL before meals <180 mg/dL all other times of the day Blood specimen (specimen) 09/21/2016 12:54 PM EST 09/21/2016 12:54 PM EST Alirio Esparza MD POINT OF CARE TEST ORDERABLES Performing Organization Address [facility] Co de Phone Number [facility] [place] [address] * EKG 12 Lead (09/21/2016 12:26 PM EST) Ventricular rate 87 BPM MUSE SYSTEM Atrial Rate 87 BPM MUSE SYSTEM P-R Interval 256 ms MUSE SYSTEM QRS Duration 90 ms MUSE SYSTEM Q-T Interval 406 ms MUSE SYSTEM QTC Calculated (Bezet) 488 ms MUSE SYSTEM Calculated P [place] 24 degrees MUSE SYSTEM Calculated R [place] 21 degrees MUSE SYSTEM Calculated T [place] -5 degrees MUSE SYSTEM INTERPRETATION Sinus rhythm with 1st degree A-V block Nonspecific T wave abnormality Prolonged QT Abnormal ECG When compared with ECG of 19-MAY-2016 11:43, PA interval has increased T wave inversion now [...] course of the esophagus and below the [id number]-[id number]. There is a right IJ PA catheter [...] the course of theesophagus and below the evqel-ea-[id number]. There is a right IJ PA catheter [...] [facility] COHB Art 0.3 % [facility] Comment: Nonsmokers: 0.5-1.5% COHB Smokers: Variable, but usually less than 10% Toxic: 20-30% COHB Lethal: Greater than 60% COHB METHB Art 0.8 <=1.5 % [facility] Na Whole Blood 140 135 [...] [facility] FIO2 Art 100 % [facility] PF Ratio Art 356 [facility] Blood specimen (specimen) 09/21/2016 12:20 PM EST 09/21/2016 12:20 PM EST Alirio Esparza MD CHEMISTRY ORDERABLE S [facility] [place] [address] * (ABNORMAL) BLOOD GAS 2 ARTERIAL (09/21/2016 10:54 AM EST) pH Art 7.43 7.35 - 7.45 [facility] pCO2 Art 40 35 - [...] [facility] COHB Art 0.5 % [facility] Comment: Nonsmokers: 0.5-1.5% COHB Smokers: Variable, but usually less than 10% Toxic: 20-30% COHB Lethal: Greater than 60% COHB METHB Art 0.3 <=1.5 % [facility] Na Whole Blood 134(L) 135 [...] [facility] FIO2 Art 95 % [facility] Flow Art 0.[address] [facility] PF Ratio Art 313 [facility] Temp Art 36.[address] [facility] Blood specimen (specimen) 09/21/2016 10:54 AM EST 09/21/2016 10:54 AM EST Alirio Esparza MD CHEMISTRY ORDERABLE S Performing Organization Address [facility] Co de Phone Number [facility] [place] [address] * Thrombin time (09/21/2016 10:50 AM EST) [...] MD HEMATOLOGY ORDERABLE S Performing Organization Address [facility] Co de Phone Number [facility] [place] [address] * Fibrinogen (09/21/2016 10:50 AM EST) Fibrinogen [...] MD HEMATOLOGY ORDERABLE S Performing Organization Address [facility] Co de Phone Number [facility] [place] [address] * APTT (09/21/2016 10:50 AM EST) PTT 32 25 - 35 sec [facility] Comment: The recommended therapeutic range for full dose, unfractionated heparin at [facility] is 80 ? 114 seconds. The use of the anti-Xa (heparin) level rather than the PTT is recommended for monitoring anticoagulation intensity in critically ill patients receiving unfractionated heparin by continuous IV infusion. Blood specimen (specimen) 09/21/2016 10:50 AM EST 09/21/2016 10:56 AM EST Narrative Resulting Agency Comment Spec In Lab Luis Enrique Qaurles MD HEMATOLOGY ORDERABLE S Performing Organization Address [facility] de Phone Number [facility] [place] [address] * (ABNORMAL) Prothrombin Time (09/21/2016 10:50 AM [...] clinical circumstances. INR 1.5(H) 0.9 - 1.1 [facility] Blood specimen (specimen) 09/21/2016 10:50 AM EST 09/21/2016 10:56 AM EST Narrative Resulting Agency Comment Spec In Lab Luis Enrique Quarles MD HEMATOLOGY ORDERABLE S [facility] [place] [address] * (ABNORMAL) Hemogram (09/21/2016 10:50 AM EST) WBC 14.7(H) 4.0 - 9.5 x10(3)/[facility] LABORATORY RBC 2.40(L) 4.00 - 5.21 x10(6)/[facility] LABORATORY Hemoglobin 7.9(L) 11.7 - [...] HOSPITAL LABORATORY Platelets 117(L) 145 - 357 x10(3)/[facility] LABORATORY RDWSD 42.6 37.0 - 46.0 [facility] RDWCV 12.1 11.5 - 14.1 % [facility] MPV 9.2 7.6 - 12.9 [facility] nRBC % Auto 0.1 % [facility] nRBC Abs Auto 0.020(H) 0.000 - 0.000 x10(3)/[facility] LABORATORY Blood specimen (specimen) 09/21/2016 10:50 AM EST 09/21/2016 10:56 AM EST Narrative Resulting Agency Comment Spec In Lab Luis Enrique Quarles MD [place] [address] * Prepare Platelets, Apheresis (09/21/2016 10:30 AM EST) Dispensed? Yes [facility] Blood specimen (specimen) 09/21/2016 10:30 AM EST 09/21/2016 10:28 AM EST Alirio Esparza MD BLOOD BANK PRODUCT ORDERABLES Performing Organization Address [facility] [place] [address] * (ABNORMAL) BLOOD GAS 2 ARTERIAL (09/21/2016 10:05 AM EST) pH Art 7.33(L) 7.35 - 7.45 [facility] pCO2 Art 54(Critic al) 35 - 45 mmHg [facility] Comment:Noted by supervisor instrument mechanics. pO2 Art 218(H) 85 - 104 mmHg [facility] HCO3 Art 27.9(H) 20.0 - 26.0 mmol/L [facility] BE Art 2.0 -3.0 - 3.0 mmol/L [facility] Hgb Blood Gas 8.6(L) 11.7 - 15.5 gm/dL [facility] O2HB Art 98.4(H) 94.0 - 97.0 % [facility] COHB Art 0.5 % [facility] Comment: Nonsmokers: 0.5-1.5% COHB Smokers: Variable, but usually less than 10% Toxic: 20-30% COHB Lethal: Greater than 60% COHB METHB Art 0.3 <=1.5 % [facility] Na Whole Blood 129(L) 135 - 145 mmol/L [facility] K Whole Blood 6.2(Criti gabrielle) 3.5 - 5.0 mmol/L [facility] Comment: Noted by supervisor instrument mechanics. Please note: Patients with WBC >100,000 may [...] [facility] Temp Art 37.[address] [facility] Blood specimen (specimen) 09/21/2016 10:05 AM EST 09/21/2016 10:05 AM EST Alirio Esparza MD CHEMISTRY ORDERABLE S [facility] [place] [address] * (ABNORMAL) BLOOD GAS 2 ARTERIAL (09/21/2016 9:44 AM EST) pH Art 7.22(Criti gabrielle) 7.35 - 7.45 [facility] Comment:Noted by supervisor instrument mechanics. pCO2 Art 70(Critica l) 35 - 45 mmHg [facility] Comment:Noted by supervisor instrument mechanics. pO2 Art 224(H) 85 - 104 mmHg [facility] HCO3 Art 27.8(H) 20.0 - 26.0 mmol/L [facility] BE Art 0.0 -3.0 - 3.0 mmol/L [facility] Hgb Blood Gas 8.7(L) 11.7 - 15.5 gm/dL [facility] O2HB Art 98.5(H) 94.0 - 97.0 % [facility] COHB Art 0.6 % [facility] Comment: Nonsmokers: 0.5-1.5% COHB Smokers: Variable, but usually less than 10% Toxic: 20-30% COHB Lethal: Greater than 60% COHB METHB Art 0.3 <=1.5 % [facility] Na Whole Blood 131(L) 135 [...] MD CHEMISTRY ORDERABLE S Performing Organization Address City/[facility] Co de Phone Number [facility] [place] [address] * (ABNORMAL) Hemoglobin (09/21/2016 9:42 AM EST) Hemoglobin 7.2(L) 11.7 - 15.5 gm/dL [facility] Blood specimen (specimen) 09/21/2016 9:42 AM EST 09/21/2016 9:51 AM EST Narrative Resulting Agency Comment Spec In Lab Alirio Esparza MD HEMATOLOGY ORDERABL ES Performing Organization Address City/[facility]/ZIP Co de Phone Number [facility] [place] [address] * Platelet count (09/21/2016 9:42 AM EST) Platelets 159 145 - 357 x10(3)/mc L [facility] Plat Immature % 1.6 0.0 - 7.4 % [facility] Comment: Limitation of the Immature Platelet Fraction (IPF)-May be less reliable when the platelet count is less than 02x163/uL due to statistical imprecision. The IPF value [...] in a decreased state of production. References: [employer] The Clinical Value of the Immature Platelet Fraction (IPF) in Cell Recovery Document Number 10-1143 12/2010 [employer] The Role of the Immature Platelet Fraction (IPF) in the Differential Diagnosis of Thrombocytopenia, Document [id number] V05 P05 Blood specimen (specimen) 09/21/2016 9:42 AM EST 09/21/2016 9:51 AM EST Narrative Resulting Agency Comment Spec In Lab Alirio Esparza MD HEMATOLOGY ORDERABL ES [facility] [place] [address] * (ABNORMAL) Hematocrit (09/21/2016 9:42 AM EST) [...] MD HEMATOLOGY ORDERABL ES Performing Organization Address [facility] Co de Phone Number [facility] [place] [address] * Fibrinogen (09/21/2016 9:42 AM EST) Fibrinogen [...] MD HEMATOLOGY ORDERABL ES Performing Organization Address [facility] Co de Phone Number [facility] [place] [address] * (ABNORMAL) BLOOD GAS 2 ARTERIAL (09/21/2016 9:10 AM EST) pH Art 7.36 7.35 - 7.45 [facility] pCO2 Art 48(H) 35 - [...] [facility] COHB Art 1.0 % [facility] Comment: Nonsmokers: 0.5-1.5% COHB Smokers: Variable, but usually less than 10% Toxic: 20-30% COHB Lethal: Greater than 60% COHB METHB Art 0.3 <=1.5 % [facility] Na Whole Blood 135 135 [...] [facility] Temp Art 37.[address] [facility] Blood specimen (specimen) 09/21/2016 9:10 AM EST 09/21/2016 9:10 AM EST Alirio Esparza MD CHEMISTRY ORDERABLE S [facility] [place] [address] * Surgical Pathology Report (09/21/2016 9:09 AM EST) FINAL DIAGNOSIS (AP) [id number] ?Location: 3T The signing pathologist has (i) [...] ?. (R1) ??ADELITA 09/24/2016 9:32 AM EST [facility] 09/21/2016 9:09 AM EST Alirio Esparza MD PATHOLOGY/CYTOLOGY ORDERABLES Performing Organization Address [facility] Co de Phone Number [facility] [place] [address] * Specimen to Pathology (surgical or derm) (09/21/2016 9:09 AM EST) AP Specimen 09/21/2016 9:09 AM EST 09/21/2016 9:09 AM EST Narrative [facility] - 09/21/2016 9:09 AM EST Specimen requisition ordered. ??Separate Pathology report to follow Alirio Esparza MD PATHOLOGY/CYTOLOGY ORDERABLES Performing Organization Address [facility] Co de Phone Number [facility] [place] [address] * (ABNORMAL) BLOOD GAS 2 ARTERIAL (09/21/2016 8:50 AM EST) pH Art 7.41 7.35 - 7.45 [facility] pCO2 Art 33(L) 35 - 45 mmHg [facility] pO2 Art 348(H) 85 - 104 mmHg [facility] HCO3 Art 20.6 20.0 - 26.0 mmol/L [facility] BE Art -4.1(L) -3.0 - 3.0 mmol/L [facility] Hgb Blood Gas 9.5(L) 11.7 - 15.5 gm/dL [facility] O2HB Art 98.8(H) 94.0 - 97.0 % [facility] COHB Art 0.3 % [facility] Comment: Nonsmokers: 0.5-1.5% COHB Smokers: Variable, but usually less than 10% Toxic: 20-30% COHB Lethal: Greater than 60% COHB METHB Art 0.3 <=1.5 % [facility] Na Whole Blood 137 135 [...] CHEMISTRY ORDERABLE S [facility] [place] [address] * (ABNORMAL) BLOOD GAS 2 ARTERIAL (09/21/2016 8:18 AM EST) pH Art 7.42 7.35 - 7.45 [facility] pCO2 Art 36 35 - [...] [facility] COHB Art 0.6 % [facility] Comment: Nonsmokers: 0.5-1.5% COHB Smokers: Variable, but usually less than 10% Toxic: 20-30% COHB Lethal: Greater than 60% COHB METHB Art 0.0 <=1.5 % [facility] Na Whole Blood 144 135 [...] [facility] FIO2 Art 95 % [facility] Flow Art [address] [facility] PF Ratio Art 298 [facility] Temp Art 35.[address] [facility] Blood specimen (specimen) 09/21/2016 8:18 AM EST 09/21/2016 8:18 AM EST Alirio Esparza MD CHEMISTRY ORDERABLE S Performing Organization Address City/State/[facility] Co de Phone Number [facility] [place] [address] * Prepare RBC (09/21/2016 7:05 AM EST) Dispensed? Yes [facility] Blood specimen (specimen) 09/21/2016 7:05 AM EST 09/21/2016 7:02 AM EST Alirio Esparza MD BLOOD BANK PRODUCT ORDERABLES Performing Organization Address City/[facility]/ZIP Co de Phone Number [facility] [place] [address] * POCT Glucose (09/21/2016 6:42 AM EST) [facility] POC Glucose 104 65 - 199 mg/dL [facility] Comment: Supplemental ranges: <140 mg/dL before meals <180 mg/dL all other times of the day Blood specimen (specimen) 09/21/2016 6:42 AM EST 09/21/2016 6:42 AM EST Alirio Esparza MD POINT OF CARE TEST ORDERABLES Performing Organization Address [facility] Co de Phone Number [facility] [place] [address] documented in this encounter Visit Diagnoses Not [...] dose on Wed09/21/16 at 1230, Until Discontinued, [place] teeth, Routine Given 09/25/2016 9:40 AM EST [...] at 0600)1600 (Due - Provider: Kendall Martínez [facility]) aspirin chewable tablet 81 mg(Linked Group 1) [...] dose on Wed09/21/16 at 1230, Until Discontinued, [place] teeth, Routine 0900 (Not Given - Provider: Elsa Miguel RN - Reason: Patient/family refused)2019 (Given - [...] Discontinued, Routine 0300 (Not Given - Provider: Macrie Frazier RN - Reason: See comment - [...] Routine documented in this encounter Care Teams Stone Mason Relationship Specialty Start Date End Date Deborah Quiroga APRN PCP - General Family Medicine 03/24/16 02/04/23 documented as of this encounter
--- OUTSIDE RECORDS SUMMARY | 2024-02-24 14:03 | XMS_ITS | Encounter Summary ---
[place] [address] Care Team Providers Care Spreader Operator Name Role Phone Deborah Quiroga ANURAG Primary Care Provider [phone] Reason for Visit * Reason Onset Date Comments Medical Care Coordination 07/17/2016 Encounter Details Date Type Department Care Team ([facility] Contact Info) Description 07/17/2016 Telephone [place] [address] Alexandrea Greenwood RN Medical Care Coordination Social [...] 07/17/2016 12:07 PM EST Message received from secretary book keeper: Injection/Infusion Referral Call placed to [phone]). Spoke w/ Pasquale. Services to be provided for pt are: Labs @ 10am ([facility]) & Neulasta @ 11am on 07/20/16, CBC only on 07/30/16 Pasquale confirmed they would provide services to pt and I left [facility] for pt to call for appt info. Pt demographics, office note, med list and orders faxed to [facility] & [facility] documented in this encounter Plan of Treatment Upcoming Encounters Date Type Department Care Team (Late st Contact Info) Description 06/05/2024 11:30 AM EST Office [place] [address] Magdalena Peralta MD [facility] [place] [address] 03/01/2025 4:15 PM EDT Office Visit Dermatology at [place] [address] [place] [address] Marek Bonilla MD [address] [facility] DERMATOLOGY [place], [place] [address] documented as of this encounter Visit Diagnoses Not on filedocumented in this encounter Care Teams Spreader Operator Relationship Specialty Start Date End Date Deborah Quiroga, PLATER SUPERVISOR PCP - General Family Medicine 03/24/16 02/04/23 documented as of this encounter
--- OUTSIDE RECORDS SUMMARY | 2024-02-24 14:03 | XMS_ITS | Encounter Summary ---
Author Organization [facility] Address [facility] [place] [address] Care Team Providers Care Filler Shredder Helper Name Role Phone Deborah Quiroga APRN Primary Care Provider [phone] Encounter Details Date Type Department Care Team (Late st Contact Info) Description 08/18/2016 Orders [place] [phone] Alirio Esparza MD [facility] [place] [address] Aortic valve stenosis, unspecified etiology Social History [...] 11:30 AM [place] [phone] Magdalena Peralta MD [facility] [place] [address] 03/01/2025 4:15 PM EDT Office Visit Dermatology at [address] [place] [address] Marek Bonlila MD [address] [facility] [place] [address] documented as of this encounter Results * Basic Metabolic Panel (non-fasting) (08/18/2016 4:50 PM EST) Glucose Lvl 82 65 - 199 mg/dL [facility] Comment:Diabetes: >=200 mg/d L plus symptoms BUN 12 8 - 18 mg/dL [facility] Creatinine 0.87 0.70 - 1.20 mg/dL [facility] Comment: Please note that the pediatric reference intervals supplied above were not validated at [facility]. Results from pediatric patients should be interpreted in conjunction to the patient's age, height and muscle mass. Sodium 142 135 - 145 mmol/L [facility] Estimated GFR >60 >=60 [facility] [place] [...] the following links into your internet browser. [email or web address] Blood specimen (specimen) 08/18/2016 4:50 PM EST 08/18/2016 5:03 PM EST Narrative Resulting Agency Comment Spec In Lab Alirio Esparza MD CHEMISTRY ORDERABLE S [facility] [place] [address] documented in this encounter Visit Diagnoses Diagnosis Aortic valve stenosis, unspecified etiology documented in this encounter Care Teams Filler Shredder Helper Relationship Specialty Start Date End Date Deborah Quiroga, PHYSICAL FITNESS TEACHER PCP - General Family Medicine 03/24/16 02/04/23 documented as of this encounter
--- OUTSIDE RECORDS SUMMARY | 2024-02-24 14:03 | XMS_ITS | Encounter Summary ---
Author Organization [facility] Address [facility] Erika becerra [place] [id number] Care Team Providers Care Grain Picker Name Role Phone Ashley Quirogan Cornelius ANURAG Primary Care Provider [phone] Reason for Visit * Reason Comments Schedule Office Case * Consultation (Routine) - Closed Specialty Diagnoses / Procedures Referred By Contac t Referred To Contact Hematology and Oncology Diagnoses Leukopenia Neutropenia LEUKOPENIA W/NEUTROPENIA Procedures TC PEGFILGRASTIM, 6MG, INJECTION LEUKOPENIA W/NEUTROPENIA Alirio Esparza MD [facility] CARDIOTHORACIC [place] [address] Mario Alberto Ramos Jr., MD [facility] HEMATOLOGY/[place] [address] Referral ID Status Reason Start Date Expiration Date V isits Requested Visits Authorized [id number] Closed Consult, Test & Treat 07/17/2016 07/17/2017 1 1 Encounter Details Date Type Department Care Team (Late st Contact Info) Description 06/09/2016 3:00 PM EST Office Visit [place] [phone] Mario Alberto Ramos Jr., MD [facility] HEMATOLOGY/[place] [address] Cyclical neutropenia Social History Tobacco Use Types [...] 06/09/2016 3:00 PM EST Hematology Outpatient Clinic [facility] Hematology Outpatient Consult Note CC: 60 [...] Unknown See Comment Flow Cytometry Report Unknown [id number] ... HematoPathology: Flow Cytometry DIAGNOSIS 1. No [...] 11:30 AM EST Office [place] [address] Magdalena Peralta MD [facility] [address] [place] [address] 03/01/2025 4:15 PM EDT Office Visit Dermatology at [place] [address] [place] [phone] Marek Bonilla MD [address] [facility] [place] [address] documented as of this encounter Procedures Procedure [...] (06/09/2016 4:53 PM EST) Flow Cytometry Report [id number] ?Location: 3K The signing pathologist has (i) [...] the Clinical Flow Cytometry Laboratory at [facility]. It has not been cleared or approved [...] high complexity clinical laboratory testing. SPECIMEN PROCESSING [id number] Cells for immunophenotypic analysis were derived from peripheral blood. ??CD45 vs side scatter gating was utilized to identify a lymphoid analysis region that comprises approximately 49-51% of all cells. The following markers were assessed: CD2, CD3, CD4, CD5, CD7, CD8, CD10, CD16, CD19, CD45, CD56, CD57, kappa light chain, and lambda light chain. CLINICAL INFORMATION 60 yo female with neutropenia. LGL panel requested. [facility] 06/09/2016 4:53 PM EST Mario Alberto Ramos Jr., MD PATHOLOGY/CYTOLOGY O RDERABLES Performing Organization Address City/[facility]/ZIP Co de Phone Number [facility] [place] [address] * Scan, Peripheral Blood (06/09/2016 4:53 PM EST) [facility] Plat Estimate Normal [facility] RBC Morphology Normal [facility] Blood specimen (specimen) 06/09/2016 4:53 PM EST 06/09/2016 5:00 PM EST Narrative Resulting Agency Comment Spec In Lab Mario Alberto Ramso Jr., MD HEMATOLOGY ORDERABLE S Performing Organization Address [facility] Co de Phone Number [facility] [place] [address] * (ABNORMAL) Differential, Automated (06/09/2016 4:53 PM EST) [facility] Neutrophils % 27.7 % [facility] Neutr Abs (ANC) 0.48(Crit ical) 1.70 - 6.10 x10(3)/mc L [facility] Comment: Matches Previous Results.. This result has been called to NOT CALLED by Jesusita Argueta on 06 09 2016 at 1817, and has not been read back. MATCHES PREVIOUS RESULTS Lymphocytes % 57.2 % [facility] Lymphocytes Abs 1.0 0.9 - 3.2 x10(3)/mc L [facility] Monocytes % 13.3 % [facility] Monocyte Abs 0.2(L) 0.3 - 0.9 x10(3)/[facility] Eosinophils % 0.6 % [facility] Eosinophils Abs 0.0 0.0 - 0.4 x10(3)/[facility] Basophils % 1.2 % [facility] Basophils Abs 0.0 0.0 - 0.1 x10(3)/[facility] Immature Gran % 0.00 % [facility] Comment: Immature granulocytes(IG's)percentage and absolute count will include metamyelocytes, myelocytes, and promyelocytes. Blood smears from CBCs yielding IG's will be scanned manually for concordance. If this scan disagrees with the automated IG or if promyelocytes are noted, a manual differential will be performed. Amanda Gran Abs 0.00 0.00 - 0.04 x10(3)/[facility] Blood specimen (specimen) 06/09/2016 4:53 PM EST 06/09/2016 5:00 PM EST Narrative Resulting Agency Comment Spec In Lab Mario Alberto Ramos Jr., MD HEMATOLOGY ORDERABLE S Performing Organization Address City/State/[facility] Co de Phone Number [facility] [place] [address] * (ABNORMAL) Hemogram (06/09/2016 4:53 PM EST) WBC 1.7(Critic al) 4.0 - 9.5 x10(3)/[facility] RBC 3.92(L) 4.00 - 5.21 x10(6)/[facility] Hemoglobin 12.4 11.7 - 15.5 gm/dL [facility] Hematocrit 36.7 35.7 - 45.8 % [facility] MCV 93.6 82.6 - 94.[address] [facility] MCH 31.6 27.1 - 32.[address] [facility] MCHC 33.8 31.7 - 35.0 gm/dL [facility] Platelets 234 145 - 357 x10(3)/[facility] RDWSD 39.8 37.0 - 46.0 [facility] RDWCV 11.8 11.5 - 14.1 % [facility] MPV 8.6 7.6 - 12.9 [facility] nRBC % Auto 0.0 % [facility] nRBC Abs Auto 0.000 0.000 - 0.000 x10(3)/[facility] Blood specimen (specimen) 06/09/2016 4:53 PM EST 06/09/2016 5:00 PM EST Narrative Resulting Agency Comment Spec In Lab Mario Alberto Ramos Jr., MD HEMATOLOGY ORDERABLE S Performing Organization Address City/[facility]/ZIP Co de Phone Number [place] [phone] * Immunophenotyping Flow Cytometry (06/09/2016 4:53 PM EST) Immunophenotyping Flow See Comment [facility] Comment: When completed by the Pathologist, the Flow Cytometry Report ([id number]) will display under the Pathology Results section within [facility]. Specimen of unknown material (specimen) 06/09/2016 4:53 PM EST 06/09/2016 5:00 PM EST Narrative Resulting Agency Comment Spec In Lab Mario Alberto Ramos Jr., MD HEMATOLOGY ORDERABLE S [facility] [place] [address] documented in this encounter Visit Diagnoses Diagnosis Cyclical neutropenia Cyclic neutropenia documented in this encounter Care Teams Grain Picker Relationship Specialty Start Date End Date Deborah Quiroga APRN PCP - General Family Medicine 03/24/16 02/04/23 documented as of this encounter
--- OUTSIDE RECORDS SUMMARY | 2024-02-24 14:03 | XMS_ITS | Encounter Summary ---
Author Organization [facility] Address [facility] [place] [address] Care Team Providers Care Fuel Injection Servicer Name Role Phone Deborah Quiroga ANURAG Primary Care Provider [phone] Encounter Details Date Type Department Care Team (Late st Contact Info) Description 07/31/2016 Orders Only [place] [address] Alexandrea Greenwood RN Neutropenia, unspecified type Social [...] 11:30 AM EST [place] [address] Magdalena Peralta MD [facility] [place] [address] 03/01/2025 4:15 PM EDT Office Visit Dermatology at [address] [phone] Marek Bonilla MD [address] [place] [address] [place] [address] documented as of this encounter Results * [...] type documented in this encounter Care Teams Fuel Injection Servicer Relationship Specialty Start Date End Date Deborah Quiroga APRN PCP - General Family Medicine 03/24/16 02/04/23 documented as of this encounter
--- OUTSIDE RECORDS SUMMARY | 2024-02-24 14:03 | XMS_ITS | Encounter Summary ---
Author Organization [facility] Address [facility] [place] [address] Care Team Providers Care Grinding Room Inspector Name Role Phone Ashley Quirogan Cornelius ANURAG Primary Care Provider [phone] Encounter Details Date Type Department Care Team (Late st Contact Info) Description 08/11/2016 Telephone Hematology and Oncology at [facility] [place] [phone] Markel Borjas MD [facility] [place] [address] Social History Tobacco Use Types Packs/Day Years [...] 11:30 AM EST Office [place] [address] Magdalena Peralta MD [facility] [address] [place] [address] 03/01/2025 4:15 PM EDT Office Visit Dermatology at [place] [address] [place] [phone] Marek Bonilla MD [address] [facility] [place] [address] documented as of this encounter Visit Diagnoses Not on filedocumented in this encounter Care Teams Grinding Room Inspector Relationship Specialty Start Date End Date Deborah Quiroga APRN PCP - General Family Medicine 03/24/16 02/04/23 documented as of this encounter
--- OUTSIDE RECORDS SUMMARY | 2024-02-24 14:03 | XMS_ITS | Encounter Summary ---
Author Organization [facility] Address [facility] [place] [address] Care Team Providers Care Applier Name Role Phone Deborah Quiroga APRN Primary Care Provider Encounter Details Date Type Department Care Team (Late st Contact Info) Description 07/17/2016 9:00 AM EST Office Visit Hematology and Oncology at [facility] [place] [address] Markel Borjas MD [facility] [place] [address] Neutropenia, unspecified type Social History Tobacco Use [...] 07/17/2016 9:00 AM EST Hematology Outpatient Clinic [facility] Hematology Outpatient Consult Note CC: [...] TOUCH PREP, CLOT SECTION, CORE ??BIOPSY); [OSR# [id number], COLLECTED 06/23/2016, 19 SLIDES]: ?1. 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 Labs will be drawn at [facility] next week Imaging As above - [...] leukopenia. 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 N [facility] HEM ONC [facility] [address] Date: 07/17/16 Patient Name: Purnima Thacker : 1955 Diagnosis: neutropenia Referral to [site]: [facility] Orders: ? Labs: Fax results to . [x] Draw CBC, copper level, CMV PCR, mononucleosis screen on 07/20 Repeat CBC on 07/30 (to measure response of WBC after Neulasta) ? Growth factor: [x] Neulasta 6mg SQ injection x 1 on 07/20/2016 Signature: Markel Borjas MD beeper # [id number] documented in this encounter Plan of Treatment Upcoming Encounters Date Type Department Care Team (Late st Contact Info) Description 06/05/2024 11:30 AM EST Office [place] [address] [facility] [place] [address] 03/01/2025 4:15 PM EDT Office Visit Dermatology at [place] [address] [place] [address] Marek Bonilla MD [address] [facility] DERMATOLOGY [place], [place] [address] documented as of this encounter Results * [...] MD HEMATOLOGY ORDERAB LES Performing Organization Address [facility] Co de Phone Number EXTERNAL LAB * Mononucleosis Screen (07/20/2016 10:30 AM EST) Pathologist [facility] [place] Screen neg neg - neg EXTERNAL LAB Blood specimen (specimen) 07/20/2016 10:30 AM EST Markel Borjas MD CHEMISTRY ORDERABL ES Performing Organization Address [facility] Co de Phone Number EXTERNAL LAB * Copper, serum (07/20/2016 10:30 AM EST) Pathologist [facility] Copper 1.09 0.75 - 1.45 EXTERNAL LAB Blood specimen (specimen) 07/20/2016 10:30 AM EST Markel Borjas MD CHEMISTRY ORDERABL ES Performing Organization Address [facility] Co de Phone Number EXTERNAL LAB * CMV PCR, Quantitative (07/20/2016 10:30 AM EST) Pathologist [facility] CMV PCR,Quantitati ve undetected EXTERNAL LAB Blood specimen (specimen) 07/20/2016 10:30 AM EST Markel Borjas MD IMMUNOLOGY ORDERAB LES Performing Organization Address City/[facility]/ZIP Co de Phone Number EXTERNAL [...] type documented in this encounter Care Teams Applier Relationship Specialty Start Date End Date Deborah Quiroga, EEG TECH PCP - General Family Medicine 03/24/16 02/04/23 documented as of this encounter
--- OUTSIDE RECORDS SUMMARY | 2024-02-24 14:03 | XMS_ITS | Encounter Summary ---
Author Organization [facility] Address [facility] [place] [place] [address] Care Team Providers Care Videographer Name Role Phone Ashley Quirogan [place] ANURAG Primary Care Provider [phone] Encounter Details Date Type Department Care Team (Late st Contact Info) Description 07/13/2016 External [place] [phone] Provider, Scanning Social History Tobacco Use Types [...] 11:30 AM EST Office [place] [phone] Magdalena Peralta MD [facility] DR [place]ATOLOG[place] [address] 03/01/2025 4:15 PM EDT Office Visit Dermatology at [address] [phone] Marek Bonilla MD [address] [facility] [place] [address] documented as of this encounter Procedures Procedure Name Priority Date/Time Associated Diagnosis Comments SURGICAL PATHOLOGY SCAN Routine 07/13/2016 documented in this encounter Results * Scan Doc: Surgical Pathology (07/13/2016) Nitesh Pina Jr., MD MEDIA MGR SCAN EXT O RDR/RSLT documented in this encounter Visit Diagnoses Not on filedocumented in this encounter Care Teams Videographer Relationship Specialty Start Date End Date Deborah Quiroga, B2B APPOINTMENT SETTER PCP - General Family Medicine 03/24/16 02/04/23 documented as of this encounter
--- OUTSIDE RECORDS SUMMARY | 2024-02-24 14:03 | XMS_ITS | Encounter Summary ---
Author Organization [facility] [place] [address] Care Team Providers Care Junior Programmer Name Role Phone Junaid, Deborah Shields APRN Primary Care Provider [phone] Reason for Visit * Auth/Cert Specialty Diagnoses / Procedures Referred By Crispin t Referred To Contact Diagnoses Aortic stenosis Procedures PRO REPLACE AORT VALV, PROSTH VALV @REPLACE AORTIC VALVE, OPEN, W\CPB, W\PROSTHETIC VALVE (WRVU 41.32) Referral ID Status Reason Start Date Expiration Date Visits Re quested Visits Authorized [id number] 1 1 Encounter Details Date Type Department Care Team (Late st Contact Info) Description 09/21/2016 7:25 AM EST Anesthesia Event [place] [address] Luis Enrique Quarles MD [facility] [place] [address] Henrik Cooper MD [facility] [place] [address] Anesthesia Record Procedure Summary Procedure Name Responsible [...] 0819 Sternotomy 0844 CV Bypass init 1009 Print And Pattern Designer 1014 An Clamp Remove 1031 CP Bypass [...] Tube 09/21/16 (#28 angled chest tube to [place]: left: pericardial); Left; 09/22/16; 1119 09/21/16 0000 by Toshia Alejandre RN 09/22/16 1119 by Vero Bonilla RN Chest Tube 09/21/16 (#28 straig ht chest tube to [place]; right: mediastinal'); Right; mediastinum; 09/22/16; 1118 09/21/16 0000 by Toshia Alejandre RN 09/22/16 1118 by Vero Bonilla, VALDO (RETIRED) Peripheral IV Line - Single Lumen 09/21/16; 0648; metacarpal vein (top of hand), left; whuk-voa-ceizyt catheter system; 20 gauge; valdo Arteaga; 09/23/16; [...] Cooper MD - 09/21/2016 6:50 PM EST [facility] Department of Anesthesiology Post-procedure Note Patient: Purnima Thacker Procedure Summary Date Anesthesia Start Anesthesia Stop Room / Location 09/21/16 07 1152 [facility] OR 16 / [facility] MAIN OR Procedure Diagnosis Surgeon Responsible Provider @REPLACE AORTIC VALVE, OPEN, W\CPB, W\PROSTHETIC VALVE (WRVU 41.32) (N/A Chest); @AORTOPLASTY FOR SUPRAVALVULAR STENOSIS (WRVU 29.33) (N/A Chest) () Alirio Francisco MD Clark, Jeffrey A, MD All Anesthesia Providers: Anesthesiologist: Luis Enrique Quarles MD Generation Technologist: Henrik Cooper MD Last (1hr) Vitals: BP Temp 36.1 ??C (97 ??F) (09/21/16 1800) Pulse 79 (09/21/16 1800) Resp 11 (09/21/16 1800) SpO2 98 % (09/21/16 1800) Patient Location: [facility] Level of Consciousness: Sedated (Pharmacologic/Intentional) Pain [...] 11:30 AM EST Office [place] [address] Magdalena Peralta MD [facility] [place] [address] 03/01/2025 4:15 PM EDT Office Visit Dermatology at [place] [address] [place] [address] Marek Bonilla MD [address] [place] [address] documented as of this encounter Visit Diagnoses [...] mg documented in this encounter Care Teams Junior Programmer Relationship Specialty Start Date End Date Deborah Quiroga, EMOTIONAL DISABILITIES TEACHER PCP - General Family Medicine 03/24/16 02/04/23 documented as of this encounter
--- OUTSIDE RECORDS SUMMARY | 2024-02-24 14:03 | XMS_ITS | Encounter Summary ---
Author Organization [facility] Address [facility] [place] [address] Care Team Providers Care Health Care Recruiter Name Role Phone Deborah Quiroga APRN Primary Care Provider [phone] Encounter Details Date Type Department Care Team (Late st Contact Info) Description 07/22/2016 External Results Hematology [place] [address] Alexandrea Greenwood RN Neutropenia, unspecified type Social [...] 11:30 AM EST Office [place] [address] Magdalena Peralta MD [facility] [place] [address] 03/01/2025 4:15 PM EDT Office Visit Dermatology at [address] [phone] Marek Bonilla MD [address] [place] [address] [place] [address] documented as of this encounter Procedures Procedure Name Priority Date/Time Associated Diagnosis Comments COPPER, SERUM Routine 07/20/2016 10:30 AM EST Neutropenia, unspecified type CMV PCR, QUANTITATIVE Routine 07/20/2016 10:30 AM EST Neutropenia, unspecified type MONONUCLEOSIS SCREEN (APD/[facility]) Routine 07/20/2016 10:30 AM EST Neutropenia, unspecified type CBC (WITH DIFF) Routine 07/20/2016 10:30 AM EST Neutropenia, unspecified type documented in this encounter Results * Copper, serum (07/20/2016 10:30 AM EST) Copper 1.09 0.75 - 1.45 EXTERNAL LAB Blood specimen (specimen) 07/20/2016 10:30 AM EST Markel Borajs MD CHEMISTRY ORDERABL ES Performing Organization Address [facility]/ZIP Co de Phone Number EXTERNAL LAB * CMV PCR, Quantitative (07/20/2016 10:30 AM EST) CMV PCR,Quantitati ve undetected EXTERNAL LAB Blood specimen (specimen) 07/20/2016 10:30 AM EST Markel Borjas MD IMMUNOLOGY ORDERAB LES EXTERNAL LAB * Mononucleosis Screen (07/20/2016 10:30 AM EST) [place] Screen neg neg - neg EXTERNAL LAB Blood specimen (specimen) 07/20/2016 10:30 AM EST Markel Borjas MD CHEMISTRY ORDERABL ES Performing Organization Address [facility]/ZIP Co de Phone Number EXTERNAL LAB [...] type documented in this encounter Care Teams Health Care Recruiter Relationship Specialty Start Date End Date Deborah Quiroga, REHAB NURSING TECH PCP - General Family Medicine 03/24/16 02/04/23 documented as of this encounter
--- OUTSIDE RECORDS SUMMARY | 2024-02-24 14:03 | XMS_ITS | Encounter Summary ---
Author Organization [facility] Address [facility] [place] [address] Care Team Providers Care Supervisor Sulfuric Acid Plant Name Role Phone Ashley Quirogan Cornelius ANURAG Primary Care Provider [phone] Encounter Details Date Type Department Care Team (Latest Contact Info) Description 08/18/2016 4:40 PM EST Laboratory [place] [phone] Aortic valve stenosis, unspecified etiology Social History [...] EST Office [place] [phone] Magdalena Peralta MD [facility] [place] [address] 03/01/2025 4:15 PM EDT Office Visit Dermatology at [address] [phone] Marek Bonilla MD [address] [facility] [place] [address] documented as of this encounter Procedures Procedure Name Priority Date/Time Associated Diagnosis Comments ABORH RECHECK STATUS Routine 08/18/2016 4:50 PM EST TYPE AND SCREEN, SDP (FUTURE SURGERY, [facility] SAME DAY PROGRAM ONLY) Routine 08/18/2016 4:50 [...] 4:50 PM EST) ABORH Type Recheck Completed [facility] Blood specimen (specimen) 08/18/2016 4:50 PM EST 08/18/2016 5:27 PM EST Narrative Resulting Agency Comment Spec In Lab Alirio Esparza MD BLOOD BANK LAB [place] Performing Organization Address [facility] Co de Phone Number [facility] [place] [address] * Antibody screen (08/18/2016 4:50 PM EST) Ab Screen Interp Negative [facility] Expires at 2359 on: 09/24/2016 [facility] Comment: Corrected from 09/17/16 12:00 [Unknown] on 09/09/16 02:32 by Shireen Treviño Blood specimen (specimen) 08/18/2016 4:50 PM EST 08/18/2016 5:11 PM EST Narrative Resulting Agency Comment Spec In Lab Alirio Esparza MD BLOOD BANK [facility] [place] Performing Organization Address City/[facility]/ZIP Co de Phone Number [facility] [place] [address] * ABO/Rh Typing (08/18/2016 4:50 PM EST) ABORH Type B Pos [facility] Blood specimen (specimen) 08/18/2016 4:50 PM EST 08/18/2016 5:11 PM EST Narrative Resulting Agency Comment Spec In Lab Alirio Esparza MD BLOOD BANK LAB [place] [facility] [place] [address] * Basic Metabolic Panel (non-fasting) (08/18/2016 4:50 PM EST) Glucose Lvl 82 65 - 199 mg/dL [facility] Comment:Diabetes: >=200 mg/d L plus symptoms BUN 12 8 - 18 mg/dL [facility] Creatinine 0.87 0.70 - 1.20 mg/dL [facility] Comment: Please note that the pediatric reference intervals supplied above were not validated at [facility]. Results from pediatric patients should be interpreted in conjunction to the patient's age, height and muscle mass. Sodium 142 135 - 145 mmol/L [facility] Potassium 3.8 3.5 - 5.0 mmol/L [facility] Comment: Please note: ??Patients with WBC >100,000 may have falsely elevated Potassium levels. ??For accurate Potassium quantification in these patients send serum separator tube (gold top) for subsequent determinations. ??Contact the Clinical Chemistry Laboratory if there are any questions. Chloride 102 98 - 107 mmol/L [facility] CO2 26 22 - 31 mmol/L [facility] Anion Gap 14 5 - 15 mmol/L [facility] Calcium 9.7 8.5 - 10.5 mg/dL [facility] Estimated GFR >60 >=60 [facility] Comment: This estimated GFR [...] the following links into your internet browser. [email or web address] Blood specimen (specimen) 08/18/2016 4:50 PM EST 08/18/2016 5:03 PM EST Narrative Resulting Agency Comment Spec In Lab Alirio Esparza MD CHEMISTRY ORDERABLE S [facility] [place] [address] documented in this encounter Visit Diagnoses Diagnosis Aortic valve stenosis, unspecified etiology documented in this encounter Care Teams Supervisor Sulfuric Acid Plant Relationship Specialty Start Date End Date Dbeorah Quiroga APRN PCP - General Family Medicine 03/24/16 02/04/23 documented as of this encounter
--- OUTSIDE RECORDS SUMMARY | 2024-02-24 14:03 | XMS_ITS | Encounter Summary ---
[place] [address] Care Team Providers Care Taxation Economist Name Role Phone Ashley Quirogan Cornelius ANURAG Primary Care Provider [phone] Reason for Visit * Reason Onset Date Comments Medical Care Coordination 09/14/2016 Encounter Details Date Type Department Care Team (Late st Contact Info) Description 09/14/2016 Telephone Hematology [place] [phone] Alexandrea Greenwood RN Medical Care Coordination Social [...] 09/14/2016 9:10 AM EST Message received from secretary to board of commissioners: Injection/Infusion Referral Call placed to [facility] Infusion Room Spoke charis Bragg. Services to be provided for pt are: Miles 09/16/16 Mahsa confirmed they would provide services to pt and would contact with appointment time. Pt aware to expect the phone call ??orders faxed to [phone]). documented in this encounter Plan of Treatment Upcoming Encounters Date Type Department Care Team (Late st Contact Info) Description 06/05/2024 11:30 AM EST Office [place] [address] Magdalena Peralta MD [facility] [place] [address] 03/01/2025 4:15 PM EDT Office Visit Dermatology at [place] [address] [facility] [place] [phone] Marek Bonilla MD [address] [facility] [place] [address] documented as of this encounter Visit Diagnoses Not on filedocumented in this encounter Care Teams Taxation Economist Relationship Specialty Start Date End Date Deborah Quiroga APRN PCP - General Family Medicine 03/24/16 02/04/23 documented as of this encounter
--- OUTSIDE RECORDS SUMMARY | 2024-02-24 14:03 | XMS_ITS | Encounter Summary ---
Author Organization [facility] [place] [address] Care Team Providers Care Infantry Weapons Crewmember Name Role Phone Deborah Quiroga APRN Primary Care Provider [phone] Encounter Details Date Type Department Care Team (Late st Contact Info) Description 08/18/2016 4:20 PM EST Clinical [place] [phone] Social History Tobacco Use Types Packs/Day Years [...] AM EST Office [place] [address] Magdalena Peralta MD [facility] [place] [address] 03/01/2025 4:15 PM EDT Office Visit Dermatology at [address] [place] [phone] Marek Bonilla MD [address] [facility] [place] [address] documented as of this encounter Visit Diagnoses Not on filedocumented in this encounter Care Teams Infantry Weapons Crewmember Relationship Specialty Start Date End Date Deborah Quiroga APRN PCP - General Family Medicine 03/24/16 02/04/23 documented as of this encounter
--- OUTSIDE RECORDS SUMMARY | 2024-02-24 14:03 | XMS_ITS | Encounter Summary ---
Author Organization [facility] Address [facility] [place] [address] Care Team Providers Care Residential Door Unit Installer Name Role Phone Deborah Quiroga APRN Primary Care Provider [phone] Encounter Details Date Type Department Care Team (Late st Contact Info) Description 06/09/2016 Orders Only Hematology [place] [phone] Nitesh Pina Jr., MD [facility] DR HEMATOLOGY/[place] [address] Cyclical neutropenia Social History Tobacco Use Types [...] 11:30 AM EST Office Visit [place] [phone] Magdalena Peralta MD [facility] [place] [address] 03/01/2025 4:15 PM EDT Office Visit Dermatology at [address] [place] [phone] Marek Bonilla MD [address] [facility] [place] [address] documented as of this encounter Results * Immunophenotyping Flow Cytometry (06/09/2016 4:53 PM EST) Immunophenotyping Flow See Comment [facility] Comment: When completed by the Pathologist, the Flow Cytometry Report ([id number]) will display under the Pathology Results section within [facility]. Specimen of unknown material (specimen) 06/09/2016 4:53 PM EST 06/09/2016 5:00 PM EST Narrative Resulting Agency Comment Spec In Lab Nitesh Pina Jr., MD HEMATOLOGY ORDERABLE S [facility] [place] [address] documented in this encounter Visit Diagnoses Diagnosis Cyclical neutropenia Cyclic neutropenia documented in this encounter Care Teams Residential Door Unit Installer Relationship Specialty Start Date End Date Deborah Quiroga APRN PCP - General Family Medicine 03/24/16 02/04/23 documented as of this encounter
--- OUTSIDE RECORDS SUMMARY | 2024-02-24 14:03 | XMS_ITS | Encounter Summary ---
Author Organization [facility] Address [facility] [place] [address] Care Team Providers Care Tar Processing Technician Name Role Phone Deborah Quiroga APRN Primary Care Provider [phone] Encounter Details Date Type Department Care Team (Late st Contact Info) Description 06/16/2016 Orders Only [place]ematology [place] [phone] Nitesh Pina Jr., MD [facility] DR HEMATOLOGY/[place] [address] Cyclical neutropenia Social History Tobacco Use Types [...] 11:30 AM EST Office [place] [phone] Magdalena Peralta MD [facility] [place] [address] 03/01/2025 4:15 PM EDT Office Visit Dermatology at [address] [place] [phone] Marek Bonilla MD [address] [facility] [place] [place] [address] documented as of this encounter Visit Diagnoses Diagnosis Cyclical neutropenia Cyclic neutropenia documented in this encounter Care Teams Tar Processing Technician Relationship Specialty Start Date End Date Deborah Quiroga, COUNTER TOP ASSEMBLER PCP - General Family Medicine 03/24/16 02/04/23 documented as of this encounter
--- OUTSIDE RECORDS SUMMARY | 2024-02-24 14:03 | XMS_ITS | Encounter Summary ---
[place] [address] Care Team Providers Care Final Canoe Inspector Name Role Phone Deborah Quiroga ANURAG Primary Care Provider [phone] Reason for Visit * Reason Onset Date Comments Medical Care Coordination 07/31/2016 Encounter Details Date Type Department Care Team (Late st Contact Info) Description 07/31/2016 Telephone Hematology [place] [phone] Alexandrea Greenwood RN Medical Care Coordination Social [...] RN spoke with Aydee of the [facility] lab who states they can draw pt's cbc on 08/04/15, RN faxed lab req to [phone] at Aydee's request. RN instructed pt on Dr. Borjas's direction above. Pt verbalized understanding. documented in this encounter Plan of Treatment Upcoming Encounters Date Type Department Care Team (Late st Contact Info) Description 06/05/2024 11:30 AM EST Office [place] [address] Magdalena Peralta MD [facility] [place] [address] 03/01/2025 4:15 PM EDT Office Visit Dermatology at [place] [address] [facility] [place] [address] Marek Bonilla MD [address] [facility] [place] [address] documented as of this encounter Visit Diagnoses Not on filedocumented in this encounter Care Teams Final Canoe Inspector Relationship Specialty Start Date End Date Deborah Quiroga APRN PCP - General Family Medicine 03/24/16 02/04/23 documented as of this encounter
--- OUTSIDE RECORDS SUMMARY | 2024-02-24 14:03 | XMS_ITS | Encounter Summary ---
[place] [address] Care Team Providers Care Family Life Educator Name Role Phone JunaidDeborah APRN Primary Care Provider [phone] Reason for Visit * Reason Onset Date Comments Labs Only 09/16/2016 Encounter Details Date Type Department Care Team (Late st Contact Info) Description 09/16/2016 Telephone Hematology [place] [address] Alexandrea Greenwood, RN Labs Only Social History [...] 09/16/2016 11:09 AM EST Message received from secretary office clerk: Purnima is having her Neulasta done today at [facility]. ??She is wondering if we want to do a CBC prior to the injection? [phone] Borjas: CBC is fine RN spoke with Swapna at [facility] who confirms they can draw CBC on pt today, RN faxed CBC w/diff to [facility] lab at [phone] RN relayed to pt that CBC ordered had been faxed to [facility], pt will have CBC drawn today prior to neulasta injection. documented in this encounter Plan of Treatment Upcoming Encounters Date Type Department Care Team (Late st Contact Info) Description 06/05/2024 11:30 AM EST Office [place] [address] Magdalena Peralta MD [facility] [place] [address] 03/01/2025 4:15 PM EDT Office Visit Dermatology at [place] [address] [place] [address] Marek Bonilla MD [address] [facility] [place] [address] documented as of this encounter Results * [...] type documented in this encounter Care Teams Family Life Educator Relationship Specialty Start Date End Date Deborah Quiroga APRN PCP - General Family Medicine 03/24/16 02/04/23 documented as of this encounter
--- OUTSIDE RECORDS SUMMARY | 2024-02-24 14:03 | XMS_ITS | Encounter Summary ---
Author Organization [facility] [place] [address] Care Team Providers Care Aligner Name Role Phone Deborah Quiroga APRN Primary Care Provider [phone] Encounter Details Date Type Department Care Team (Latest Contact Info) Description 07/10/2016 2:54 PM EST - 07/10/2016 11:59 PM EST Hospital [place] [phone] Discharge Disposition: Home Social History Tobacco Use [...] 11:30 AM EST Office [place] [address] Magdalena Peralta MD [facility] [place] [address] 03/01/2025 4:15 PM EDT Office Visit Dermatology at [place] [address] [facility] [place] [address] Marek Bonilla MD [address] [facility] [place] [address] documented as of this encounter Procedures Procedure Name Priority Date/Time Associated Diagnosis Comments BONE MARROW FINAL REPORT Routine 07/10/2016 3:43 PM EST documented in this encounter Results * Bone Marrow Final Report (07/10/2016 3:43 PM EST) FINAL DIAGNOSIS (AP) [id number] ?Location: OPW The signing pathologist has (i) examined the relevant preparation(s) for the specimen(s) and (ii) rendered or confirmed the diagnosis(es). . ? Bone Marrow Final DIAGNOSIS BONE MARROW (PERIPHERAL SMEAR, ASPIRATE SMEAR, TOUCH PREP, CLOT SECTION, CORE BIOPSY); [OSR# [id number], COLLECTED 06/23/2016, 19 SLIDES]: ?? 1. 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 Polytypic plasma cell staining, high background Lambda ?Polytypic plasma cell staining, high background Block: ? B2 (Core biopsy 2) Fixative: ?? Formalin ANTIBODY: ?? RESULT/COMMENT CD3 ? Scattered small lymphocytes and lymphoid aggregates highlighted CD20 ?Few scattered small lymphocytes stain ( ?? <CD3 in aggregates) CD138 ? Scattered plasma cells represent 3-4% of the cellularity [place] ? Polytypic plasma cell staining, high background Lambda ?Polytypic plasma cell staining, high background Note: The immunoperoxidase stains reported above were developed and their performance characteristics determined by [facility]. ??They have not been cleared [...] CONSULTATION CASE A - 19 slides labeled [id number], collection date 06/23/2016. [id number] Report to: [facility] Surgical Pathology Department [facility], [facility], 2nd Floor [address] [place], [place] [address] 07/13/2016 11:38 AM EST [facility] 07/10/2016 3:43 PM EST Nitesh Pina Jr., MD PATHOLOGY/CYTOLOGY O RDERABLES [facility] [address] [place] [address] documented in this encounter Visit Diagnoses Not on filedocumented in this encounter Care Teams Aligner Relationship Specialty Start Date End Date Deborah Quiroga APRN PCP - General Family Medicine 03/24/16 02/04/23 documented as of this encounter
--- OUTSIDE RECORDS SUMMARY | 2024-02-24 14:03 | XMS_ITS | Encounter Summary ---
Author Organization [facility] Address [facility] [place] [address] Care Team Providers Care Waiter/Waitress Cabin Class Name Role Phone Deborah Quiroga APRN Primary Care Provider [phone] Encounter Details Date Type Department Care Team (Late st Contact Info) Description 08/04/2016 External Results Hematology [place] [address] Alexandrea Greenwood RN Neutropenia, unspecified type Social [...] 11:30 AM EST Office [place] [address] Magdalena Peralta MD [facility] [place] [address] 03/01/2025 4:15 PM EDT Office Visit Dermatology at [address] [phone] Marek Bonilla MD [address] [place] [address] [place] [address] documented as of this encounter Procedures Procedure [...] type documented in this encounter Care Teams Waiter/Waitress Cabin Class Relationship Specialty Start Date End Date Deborah Quiroga, BRICK DROPPER PCP - General Family Medicine 03/24/16 02/04/23 documented as of this encounter
--- OUTSIDE RECORDS SUMMARY | 2024-02-24 14:03 | XMS_ITS | Encounter Summary ---
Author Organization [facility] Address [facility] [place] [address] Care Team Providers Care Teaching Artist Name Role Phone Deborah Quiroga APRN Primary Care Provider [phone] Encounter Details Date Type Department Care Team (Late st Contact Info) Description 07/03/2016 External Results Hematology [place] [address] Matthew Cervantes, DO [address] [place] [address] Social History Tobacco Use Types Packs/Day Years [...] 11:30 AM EST Office [place] [address] Magdalena Peralta MD [facility] [place] [address] 03/01/2025 4:15 PM EDT Office Visit Dermatology at [address] [phone] Marek Bonilla MD [address] [place] [address] [place] [address] documented as of this encounter Procedures Procedure Name Priority Date/Time Associated Diagnosis Comments BONE MARROW ASPIRATION PERFO RMED WITH BONE MARRROW BIOPSY Routine 06/28/2016 documented in this encounter Results * BONE MARROW ASPIRATION PREFORMED WITH BONE MARRROW BIOPSY (06/28/2016) Matthew Cervantes DO GENERAL SURGI DANIEL ORDERABLES documented in this encounter Visit Diagnoses Not on filedocumented in this encounter Care Teams Teaching Artist Relationship Specialty Start Date End Date Deborah Quiroga APRN PCP - General Family Medicine 03/24/16 02/04/23 documented as of this encounter
--- OUTSIDE RECORDS SUMMARY | 2024-02-24 14:03 | XMS_ITS | Encounter Summary ---
Author Organization [facility] Address [facility] [place] [address] Care Team Providers Care Offset Printer Name Role Phone Deborah Quiroga APRN Primary Care Provider [phone] Encounter Details Date Type Department Care Team (Late st Contact Info) Description 09/17/2016 External Results Hematology [place] [address] Alexandrea Greenwood RN Neutropenia, unspecified type Social [...] 11:30 AM EST Office [place] [address] Magdalena Peralta MD [facility] [address] [place] [address] 03/01/2025 4:15 PM EDT Office Visit Dermatology at [address] [phone] Marek Bonilla MD [address] [place] [address] [place] [address] documented as of this encounter Procedures Procedure [...] type documented in this encounter Care Teams Offset Printer Relationship Specialty Start Date End Date Deborah Quiroga, BOOM BOSS PCP - General Family Medicine 03/24/16 02/04/23 documented as of this encounter
--- OUTSIDE RECORDS SUMMARY | 2024-02-24 14:03 | XMS_ITS | Encounter Summary ---
[place] [address] Care Team Providers Care Television Parts Tester Name Role Phone Deborah Quiroga APRN Primary Care Provider [phone] Reason for Visit * Reason Onset Date Comments Prior Authorization 09/11/2016 Neulasta Encounter Details Date Type Department Care Team (Late st Contact Info) Description 09/11/2016 Telephone [place] [address] Monica Wick Prior Authorization (Neulasta ) Social [...] AM EST Prior Auth for Neulasta (Approved) [facility] is a covered facility under the members plan. ID# [id number] Call placed to [phone] Rationale: Can you please start a PA for this pt to receive as outpatient at [facility] on 09/16/16? 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 ??Her last ANC was 0.56 (or 560) on 08/04/16. ??This will need to be approved through her medical as out patient. J code for neulasta. ?? [id number]. Spoke w/ Anna Marie Call Reference [id number] Copay: $ Deductible is not met, patient will have out of pocket costs until deductible is met. documented in this encounter Plan of Treatment Upcoming Encounters Date Type Department Care Team (Late st Contact Info) Description 06/05/2024 11:30 AM EST Office [place] [address] Magdalena Peralta MD [facility] [place] [address] 03/01/2025 4:15 PM EDT Office Visit Dermatology at [address] [place] [phone] Marek Bonilla MD [address] [place] [address] [place] [address] documented as of this encounter Visit Diagnoses Not on filedocumented in this encounter Care Teams Television Parts Tester Relationship Specialty Start Date End Date Deborah Quiroga APRN PCP - General Family Medicine 03/24/16 02/04/23 documented as of this encounter
--- OUTSIDE RECORDS SUMMARY | 2024-02-24 14:03 | XMS_ITS | Encounter Summary ---
Author Organization [facility] Address [facility] [place] [address] Care Team Providers Care Under Water Assistant Name Role Phone Deborah Quiroga ANURAG Primary Care Provider [phone] Reason for Visit * Reason Onset Date Comments Pre Procedure Call 06/18/2016 Encounter Details Date Type Department Care Team (Late st Contact Info) Description 06/18/2016 Telephone Hematology [place] [address] Alexandrea Greenwood RN Pre Procedure Call Social [...] 11:30 AM EST Office [place] [address] Magdalena Peralta MD [facility] [place] [address] 03/01/2025 4:15 PM EDT Office Visit Dermatology at [place] [address] [place] [address] Marek Bonilla MD [address] [facility] [place] [address] documented as of this encounter Visit Diagnoses Not on filedocumented in this encounter Care Teams Under Water Assistant Relationship Specialty Start Date End Date Deborah Quiroga APRN PCP - General Family Medicine 03/24/16 02/04/23 documented as of this encounter
--- OUTSIDE RECORDS SUMMARY | 2024-02-24 14:03 | XMS_ITS | Encounter Summary ---
Author Organization [facility] Address [facility] [place] [address] Care Team Providers Care Roller Coaster Designer Name Role Phone Deborah Quiroga APRN Primary Care Provider [phone] Encounter Details Date Type Department Care Team (Late st Contact Info) Description 07/31/2016 External Results Hematology [place] [address] Alexandrea Greenwood RN Neutropenia, unspecified type Social [...] 11:30 AM EST Office [place] [address] Magdalena Peralta MD [facility] [place] [address] 03/01/2025 4:15 PM EDT Office Visit Dermatology at [address] [phone] Marek Bonilla MD [address] [place] [address] [place] [address] documented as of this encounter Procedures Procedure [...] type documented in this encounter Care Teams Roller Coaster Designer Relationship Specialty Start Date End Date Deborah Quiroga, LEAD SQL DEVELOPER PCP - General Family Medicine 03/24/16 02/04/23 documented as of this encounter
--- OUTSIDE RECORDS SUMMARY | 2024-02-24 14:03 | XMS_ITS | Encounter Summary ---
[place] [address] Care Team Providers Care Superintendent Marine Oil Terminal Name Role Phone Deborah Quiroga ANURAG Primary Care Provider [phone] Encounter Details Date Type Department Care Team (Late st Contact Info) Description 09/11/2016 Orders Only Hematology [place] [address] Alexandrea Greenwood RN Social History [...] the original note were not included. [facility] HEM ONC [facility] [phone] Date: 09/11/16 Patient Name: Purnima Thacker : 1955 Diagnosis: Neutropenia Referral to [site]: [facility] Orders: ? Growth factor: [x] Neulasta 6mg SQ injection x 1 on 09/16/16 Signature: Markel Borjas MD beeper # [id number] Co-signature [if needed]: documented in this encounter Plan of Treatment Upcoming Encounters Date Type Department Care Team (Late st Contact Info) Description 06/05/2024 11:30 AM EST Office [place] [address] Magdalena Peralta MD [facility] [place] [address] 03/01/2025 4:15 PM EDT Office Visit Dermatology at [place] [address] [place] [address] Marek Bonilla MD [address] [facility] DERMATOLOGY [place], [place] [address] documented as of this encounter Procedures Procedure Name Priority Date/Time Associated Diagnosis Comments TRANSESOPHAGEAL ECHOCARDIOGRAM (GAVINO) Routine 09/22/2016 documented in this encounter Results * Transesophageal Echocardiogram (GAVINO) (09/22/2016) Anatomical Region Laterality Modality Other 09/22/2016 Narrative 09/22/2016 8:30 AM EST Procedure: ?Transesophageal Echocardiogram Patient: ?ANDREW PURNIMA M ? (Age): 1955(61y) Med Rec#: ? [id number] ?Sex: ?M ? Site Loc: ? [facility] ?Ht / Wt: ??(cm)/ (kg) ? Pt. Loc: ?OR ? Study Date: ?? 09/21/2016 ?Pt. Type: Tape: ? 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 AVR for severe Rhythm: ? [...] ? Mid-Inferior ?Normal ? Mid-Inferoseptal ?Normal ? Halfway-Septal ? Normal ? Halfway-Anterior ? Normal ? Halfway-Lateral ?Normal ? Halfway-Inferior ? Normal ? Halfway-Tip ?Normal ? This report has been electronically signed by: Henrik Yarbrough M.D. ? 09/22/2016 08:30:41 Images reviewed and interpretation verified [facility] Cardiac Ultrasound Laboratory Procedure Note Henrik Yarbrough MD - 09/22/2016 Procedure: Transesophageal Echocardiogram Patient: ANDREW Mejias (Age): 1955(61y) Med Rec#: [id number] Sex: M Site Loc: [facility] Ht / Wt: (cm)/ (kg) Pt. Loc: OR Study Date: 09/21/2016 Pt. 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 09/22/2016 08:30:41 Images reviewed and interpretation verified [facility] Cardiac Ultrasound Laboratory Unknown ECHO ORDERABLES documented in this encounter Visit Diagnoses Not on filedocumented in this encounter Care Teams Superintendent Marine Oil Terminal Relationship Specialty Start Date End Date Deborah Quiroga APRN PCP - General Family Medicine 03/24/16 02/04/23 documented as of this encounter
--- OUTSIDE RECORDS SUMMARY | 2024-02-24 14:04 | XMS_ITS | Encounter Summary ---
Author Organization [facility] Address [facility] [place] [address] Care Team Providers Care Insurance Agency Sales Manager Name Role Phone Ashley Quirogazac Shields APRN Primary Care Provider [phone] Reason for Visit * Auth/Cert Specialty Diagnoses / Procedures Referred By Crispin t Referred To Contact Diagnoses AVS Procedures CARDIAC CATHETERIZATION Referral ID Status Reason Start Date Expiration Date Visits Re quested Visits Authorized [id number] 1 1 Encounter Details Date Type Department Care Team (Late st Contact Info) Description 06/03/2016 6:32 AM EDT - 06/03/2016 1:10 PM EDT Hospital Encounter [place] [address] Anjum Oliveros II, MD [facility] [place] [address] Mario Alberto Escobedo MD [facility] [place] [address] Aortic valve stenosis, unspecified etiology; Nonrheumatic aortic [...] by your doctor, do not take any mswi-nww-luyhokk medicinesor herbal preparations without first discussing this with your doctor or pharmacist. There is the possibility of side effects and interactions when these are combined. Follow Up Care Who to call with questions or problems If there are any questions or problems that you think might be related to your cardiac cath or angioplasty, contact the revenue officer payroll professional by calling [facility] at . * Patient Instructions* Felicia Corrigan - 06/03/2016 9:33 AM EDT Cardiology Instructions Call your doctor if: Chest pain, dyspnea, pain or swelling in legs occurs. If you have non-emergent questions between now and the time of your follow up appointments: -During 8am-5pm Wednesday through Wednesday call [phone] to speak with a nurse in the cardiology clinic -All other times call [phone] and ask to speak to the library helper payroll professional. MEDICATIONS - restart your spironolactone, discontinue prior [...] up Appointments: Primary care provider: Cardiology: Deborah aHhn, CYLINDER HEAD ASSEMBLER [phone] Follow up as planned or as needed. Dr. Esparza [phone] Other follow-up appointment: Hematology - Dr. Mario [...] 11:30 AM EST Office [place] [address] Magdalena Peralta MD [facility] [place] [address] 03/01/2025 4:15 PM EDT Office Visit Dermatology at [place] [address] [place] [address] Marek Bonilla MD [address] [facility] DERMATOLOGY [place], [place] [address] documented as of this encounter Procedures Procedure [...] AM EDT) Green Hold Sample in lab. [facility] Blood specimen (specimen) Venous Draw / Unknown 06/03/2016 11:45 AM EDT 06/03/2016 12:12 PM EDT Mario Alberto Escobedo MD CHEMISTRY ORDERABLES Performing Organization Address City/State/[facility] Co de Phone Number [facility] [place] [address] * Methylmalonic acid, serum (06/03/2016 11:45 AM EDT) Methylmalonic Acid 0.21 <=0.40 nmol/mL [facility] Comment: Test Performed by: [facility] - [address] [address] Waitress: Raymond Chaudhry II, M.D., Ph.D. Blood specimen (specimen) 06/03/2016 11:45 AM EDT 06/03/2016 1:57 PM EDT Narrative Resulting Agency Comment Spec In Lab Mario Alberto Escobedo MD CHEMISTRY ORDERABLES Performing Organization Address City/State/[facility] Co de Phone Number [facility] [place] [address] * Granulocyte Antibody (06/03/2016 11:45 AM EDT) [facility] Granulocyte Ab Negative Not Applicable [facility] Comment: ADDITIONAL INFORMATION Method: Immunofluorescent Assay Performing Laboratory CLIA# [id number] This test was developed and its performance characteristics determined by [facility] in a manner consistent with CLIA requirements. This test has not been cleared or approved by the U.S. Food and Drug Administration. Test Performed by: [address] [address] Waitress: Raymond Chaudhry II, M.D., Ph.D. Blood specimen (specimen) 06/03/2016 11:45 AM EDT 06/03/2016 1:57 PM EDT Narrative Resulting Agency Comment Spec In Lab Mario Alberto Escobedo MD IMMUNOLOGY ORDERABLE S Performing Organization Address [facility] Co de Phone Number [facility] [place] [address] * TSH (06/03/2016 11:45 AM EDT) [facility] TSH 2.18 0.27 - 4.20 mcIU/mL [facility] Blood specimen (specimen) 06/03/2016 11:45 AM EDT 06/03/2016 12:11 PM EDT Narrative Resulting Agency Comment Spec In Lab Mario Alberto Escobedo MD CHEMISTRY ORDERABLES Performing Organization Address [facility] Co de Phone Number [facility] [place] [address] * Homocysteine Total, Plasma (06/03/2016 11:45 AM EDT) [facility] Homocyst Tot 9 <=15 mcmol/L [facility] Blood specimen (specimen) 06/03/2016 11:45 AM EDT 06/03/2016 12:11 PM EDT Narrative Resulting Agency Comment Spec In Lab Mario Alberto Escobedo MD CHEMISTRY ORDERABLES Performing Organization Address City/[facility]/ZIP Co de Phone Number [facility] [place] [address] * Folate, serum (06/03/2016 11:45 AM EDT) Folate Lvl >20.0 4.8 - 24.2 ng/mL [facility] Blood specimen (specimen) 06/03/2016 11:45 AM EDT 06/03/2016 12:04 PM EDT Narrative Resulting Agency Comment Spec In Lab Mario Alberto Escobedo MD CHEMISTRY ORDERABLES Performing Organization Address [facility] Co de Phone Number [facility] [place] [address] * (ABNORMAL) Sedimentation rate (06/03/2016 11:45 AM EDT) Sed Rate 41(H) 0 - 20 mm/hr [facility] Blood specimen (specimen) 06/03/2016 11:45 AM EDT 06/03/2016 12:04 PM EDT Narrative Resulting Agency Comment Spec In Lab Mario Alberto Escobedo MD HEMATOLOGY ORDERABLE S Performing Organization Address City/[facility]/ZIP Co de Phone Number [facility] [place] [address] * Lactate Dehydrogenase (06/03/2016 11:45 AM EDT) LDH 164 110 - 220 unit/L [facility] Blood specimen (specimen) 06/03/2016 11:45 AM EDT 06/03/2016 12:11 PM EDT Narrative Resulting Agency Comment Spec In Lab Mario Alberto Escobedo MD CHEMISTRY ORDERABLES [facility] [place] [address] * Comprehensive metabolic panel (non-fasting) (06/03/2016 11:45 AM EDT) Glucose Lvl 90 65 - 199 mg/dL [facility] Comment:Diabetes: >=200 mg/d L plus symptoms BUN 11 8 - 18 mg/dL [facility] Creatinine 0.83 0.70 - 1.20 mg/dL [facility] Comment: Please note that the pediatric reference intervals supplied above were not validated at [facility]. Results from pediatric patients should be interpreted in conjunction to the patient's age, height and muscle mass. Sodium 143 135 - 145 mmol/L [facility] Potassium 4.0 3.5 - 5.0 mmol/L [facility] Comment: Please note: ??Patients with WBC >100,000 may have falsely elevated Potassium levels. ??For accurate Potassium quantification in these patients send serum separator tube (gold top) for subsequent determinations. ??Contact the Clinical Chemistry Laboratory if there are any questions. Chloride 104 98 - 107 mmol/L [facility] CO2 25 22 - 31 mmol/L [facility] Anion Gap 14 5 - 15 mmol/L [facility] Calcium 9.2 8.5 - 10.5 mg/dL [facility] Total Protein 7.0 6.1 - 8.0 gm/dL [facility] Albumin 4.0 3.2 - 5.2 gm/dL [facility] AST 17 0 - 30 unit/L [facility] ALT 9 0 - 30 unit/L [facility] Alk Phos 81 40 - 104 unit/L [facility] Total Bilirubin 0.4 0.2 - 1.3 mg/dL [facility] Bili, Direct 0.1 0.0 - 0.3 mg/dL [facility] Estimated GFR >60 >=60 NORTH [...] the following links into your internet browser. [email or web address] Blood specimen (specimen) 06/03/2016 11:45 AM EDT 06/03/2016 12:11 PM EDT Narrative Resulting Agency Comment Spec In Lab Mario Alberto Escobedo MD CHEMISTRY ORDERABLES [place] [address] documented in this encounter Visit Diagnoses Diagnosis [...] Hernandez) documented in this encounter Care Teams Insurance Agency Sales Manager Relationship Specialty Start Date End Date Deborah Quiroga, ANURAG PCP - General Family Medicine 03/24/16 02/04/23 documented as of this encounter
--- OUTSIDE RECORDS SUMMARY | 2024-02-24 14:04 | XMS_ITS | Encounter Summary ---
Author Organization [facility] Address [facility] [place] [address] Care Team Providers Care Cash Processor Name Role Phone Deborah Quiroga APRN Primary Care Provider [phone] Encounter Details Date Type Department Care Team (Latest Contact Info) Description 05/19/2016 11:52 AM EDT - 05/19/2016 11:59 PM EDT Hospital Encounter XRay at [address] [place] [address] Alirio Esparza MD [facility] [place] [address] Nonrheumatic aortic valve stenosis Discharge Disposition: Home [...] 11:30 AM EST Office [place] [address] Magdalena Peralta MD [facility] [place] [address] 03/01/2025 4:15 PM EDT Office Visit Dermatology at [place] [address] [facility] [place] [address] Marek Bonilla MD [address] [facility] [address] documented as of this encounter Procedures Procedure [...] disorders documented in this encounter Care Teams Cash Processor Relationship Specialty Start Date End Date Deborah Quiroga, CALENDER WORKER HELPER PCP - General Family Medicine 03/24/16 02/04/23 documented as of this encounter
--- OUTSIDE RECORDS SUMMARY | 2024-02-24 14:04 | XMS_ITS | Encounter Summary ---
Author Organization [facility] [place] [address] Care Team Providers Care Passenger Elevator Operator Name Role Phone EitanDanni ANURAG Primary Care Provider Encounter Details Date Type Department Care Team (Latest Contact Info) Description 01/23/2014 7:45 AM EDT - 01/23/2014 5:50 PM EDT Hospital Encounter [place] [address] Alan Jacobson MD [facility] [address] [place] [address] Cardiomyopathy; SOB (shortness of breath) Discharge Disposition: [...] by your doctor, do not take any pjhe-xdb-yadrhyg medicines or herbal preparations without first discussing this with your doctor or pharmacist. There is the possibility of side effect and interactions when these are combined. Follow up Care Who to Call with Questions or Problems If there are any questions or problems that you think might be related to your cardiac cath or angioplasty, contact the case assembler precision devices inspector/tester by calling [facility] at . documented in this encounter Medications [...] EST Office [place] [address] Magdalena Peralta MD [facility] DR [place] [address] 03/01/2025 4:15 PM EDT Office Visit Dermatology at [place] [address] [place] [address] Marek Bonilla MD [address] [facility] [place] [address] documented as of this encounter Procedures Procedure [...] ANDREW ONESIMO M ?(Age): 1955(58) Med Rec#: ?[id number] ? Sex: ?F ? Site Loc: ?[facility] ? Ht / Wt: ??158(cm)/93(kg) Pt. Loc: ? Adult Floor ?BSA: ?2.02 Study Date: ?01/23/2014 ? Pt. Type: Inpatient Tape: ? Referring: Lee Kincaid ([id number]) Referring: ANNALISA Scaleman: Miguel Beverly Diagnosis:CPT Code(s): ??Echo Full (46422), ??Spectral Doppler (70285), Color Doppler (43940), Indication(s): ??Aortic stenosis Rhythm: Sinus HR ?BP [...] ? Mid-Inferior ?Hypokinetic ? Mid-Inferoseptal ?Hypokinetic ? Ririe-Septal ? Hypokinetic ? Ririe-Anterior ? Hypokinetic ? Ririe-Lateral ?Hypokinetic ? Ririe-Inferior ? Hypokinetic ? Ririe-Tip ?Hypokinetic ? Chambers ?Value ?Units (Range) ? [...] 01/23/2014 16:34:37 Images reviewed and interpretation verified [facility] Cardiac Ultrasound Laboratory Procedure Note Lee Kincaid MD - 01/23/2014 Procedure: Transthoracic Echocardiogram Patient: ANDREW Mejias DOB(Age): 1955(58) Med Rec#: [id number] Sex: F Site Loc: [facility] Ht / Wt: 158(cm)/93(kg) Pt. Loc: Adult Floor BSA: 2.02 Study Date: 01/23/2014 Pt. Type: Inpatient Tape: Referring: Lee Kincaid ([id number]) Referring: AUSTINELIZABETHGerman Scaleman: Miguel Beverly Diagnosis:CPT Code(s): Echo Full (61581), Spectral Doppler (88355), Color Doppler (71821), Indication(s): Aortic stenosis Rhythm: Sinus HR BP [...] Hypokinetic Mid-Posterolateral Hypokinetic Mid-Inferior Hypokinetic Mid-Inferoseptal Hypokinetic Ririe-Septal Hypokinetic Ririe-Anterior Hypokinetic Ririe-Lateral Hypokinetic Ririe-Inferior Hypokinetic Ririe-Tip Hypokinetic Chambers Value Units (Range) IVSd 2D [...] 01/23/2014 16:34:37 Images reviewed and interpretation verified [facility] Cardiac Ultrasound Laboratory Lee Kincaid MD ECHO [...] RN) documented in this encounter Care Teams Passenger Elevator Operator Relationship Specialty Start Date End Date Danni Laird APRN [address] [place] [address] PCP - General 01/23/14 11/11/14 documented as of this encounter
--- OUTSIDE RECORDS SUMMARY | 2024-02-24 14:04 | XMS_ITS | Encounter Summary ---
Author Organization [facility] [place] [address] Care Team Providers Care Step Down Nurse Name Role Phone EitanMagnusDanni ANURAG Primary Care Provider Encounter Details Date Type Department Care Team (Late st Contact Info) Description 01/23/2014 9:25 AM EDT - 01/23/2014 10:25 AM EDT [place] [address] Alan Jacobson MD [facility] [place] [address] CARDIAC CATHETERIZATION Social History Tobacco Use Types [...] by your doctor, do not take any ypdc-jib-oldjnfg medicines or herbal preparations without first discussing this with your doctor or pharmacist. There is the possibility of side effect and interactions when these are combined. Follow up Care Who to Call with Questions or Problems If there are any questions or problems that you think might be related to your cardiac cath or angioplasty, contact the doughnut machine operator transformation architect by calling [facility] at . documented in this [...] 11:30 AM EST Office Visit Rheumatology at [facility] [place] [address] Magdalena ePralta MD [facility] [place] [address] 03/01/2025 4:15 PM EDT Office Visit Dermatology at [place] [address] [place] [phone] Marek Bonilla MD [address] [facility] [place] [address] documented as of this encounter Procedures Procedure Name Priority Date/Time Associated Diagnosis Comments ECHOCARDIOGRAM TRANSTHORACIC Routine 01/23/2014 3:17 PM EDT SOB (shortness of breath) documented in this encounter Results * Echocardiogram Transthoracic(Leb) (01/23/2014 3:17 PM EDT) Pathologist TouchLocal EF 50 HEARTLAB SYSTEM Anatomical Region Laterality Modality Other 01/23/2014 Narrative 01/23/2014 4:35 PM EDT Procedure: ? Transthoracic Echocardiogram Patient: ? ANDREW ECHOLS M ?(Age): 1955(58) Med Rec#: ?[id number] ? Sex: ?F ? Site Loc: ?[facility] ? Ht / Wt: ??158(cm)/93(kg) Pt. Loc: ? Adult Floor ?BSA: ?2.02 Study Date: ?01/23/2014 ? Pt. Type: Inpatient Tape: ? Referring: Lee Kincaid ([id number]) Referring: ANNALISA Supervisor Framing Mill: Miguel Beverly Diagnosis:CPT Code(s): ??Echo Full (66692), ??Spectral Doppler (22834), Color Doppler (15733), Indication(s): ??Aortic stenosis Rhythm: Sinus HR ?BP [...] ? Mid-Inferior ?Hypokinetic ? Mid-Inferoseptal ?Hypokinetic ? Gate-Septal ? Hypokinetic ? Gate-Anterior ? Hypokinetic ? Gate-Lateral ?Hypokinetic ? Gate-Inferior ? Hypokinetic ? Gate-Tip ?Hypokinetic ? Chambers ?Value ?Units (Range) ? [...] ?m/sec (1 to 1.7) ? LVOT pk weor ? 0.89 ? m/sec (0.7 to 1.1) ?? LVOT D ?2 ?cm ? Mitral Valve ?Value ?Units (Range) ? E peak ?0.5 ?m/sec ? E/A ratio ? 0.6 ?ratio ? MVDT ?173 ?msec ? E1 ?0.08 ? m/sec ? E/E1 ?6.3 ?ratio ? This report has been electronically signed by: Lee Kincaid MD ? 01/23/2014 16:34:37 Images reviewed and interpretation verified [facility] Cardiac Ultrasound Laboratory Procedure Note Lee Kincaid MD - 01/23/2014 Procedure: Transthoracic Echocardiogram Patient: ANDREW Mejias (Age): 1955(58) Med Rec#: [id number] Sex: F Site Loc: [facility] Ht / Wt: 158(cm)/93(kg) Pt. Loc: Adult Floor BSA: 2.02 Study Date: 01/23/2014 Pt. Type: Inpatient Tape: Referring: Lee Kincaid ([id number]) Referring: ANNALISA Supervisor Framing Mill: Miguel Beverly Diagnosis:CPT Code(s): Echo Full (38912), Spectral Doppler (64126), Color Doppler (10716), Indication(s): Aortic stenosis Rhythm: Sinus HR BP [...] Hypokinetic Mid-Posterolateral Hypokinetic Mid-Inferior Hypokinetic Mid-Inferoseptal Hypokinetic Gate-Septal Hypokinetic Gate-Anterior Hypokinetic Gate-Lateral Hypokinetic Gate-Inferior Hypokinetic Gate-Tip Hypokinetic Chambers Value Units (Range) IVSd 2D [...] 01/23/2014 16:34:37 Images reviewed and interpretation verified [facility] Cardiac Ultrasound Laboratory Lee Kincaid [...] RN) documented in this encounter Care Teams Step Down Nurse Relationship Specialty Start Date End Date Danni Laird APRN [address] [place] [address] PCP - General 01/23/14 11/11/14 documented as of this encounter
--- OUTSIDE RECORDS SUMMARY | 2024-02-24 14:04 | XMS_ITS | Encounter Summary ---
Author Organization [facility] Address [facility] [place] [address] Care Team Providers Care Spooler Rubber Strand Name Role Phone Ashley Quirogan Cornelius ANURAG Primary Care Provider [phone] Encounter Details Date Type Department Care Team (Latest Contact Info) Description 05/19/2016 11:20 AM EDT [place] [phone] Nonrheumatic aortic valve stenosis Social History Tobacco [...] 11:30 AM EST [place] [phone] Magdalena Peralta MD [facility] [place] [address] 03/01/2025 4:15 PM EDT Office Visit Dermatology at [address] [phone] Marek Bonilla MD [address] [facility] [place] [address] documented as of this encounter Procedures Procedure Name Priority Date/Time Associated Diagnosis Comments SCAN, PERIPHERAL BLOOD Routine 05/19/2016 11:32 AM EDT HEMOGRAM Routine 05/19/2016 11:32 AM EDT Nonrheumatic aortic valve stenosis DIFFERENTIAL, AUTOMATED Routine 05/19/2016 11:32 AM EDT Nonrheumatic aortic valve stenosis TYPE AND SCREEN, SDP (FUTURE SURGERY, [facility] SAME DAY PROGRAM ONLY) Routine 05/19/2016 11:32 [...] (05/19/2016 11:32 AM EDT) Plat Estimate Normal [facility] RBC Morphology Normal [facility] Blood specimen (specimen) 05/19/2016 11:32 AM EDT 05/19/2016 11:41 AM EDT Narrative Resulting Agency Comment Spec In Lab Alirio Esparza MD HEMATOLOGY ORDERABL ES [facility] [place] [address] * (ABNORMAL) Differential, Automated (05/19/2016 11:32 AM EDT) Neutrophils % 25.9 % [facility] Neutr Abs (ANC) 0.42(Crit ical) 1.70 - 6.10 x10(3)/mc L [facility] Comment: This result has been called to DR ALIRIO ESPARZA by Alivia Ibarra on 05 19 2016 at 1228, and has been read back. Lymphocytes % 59.9 % [facility] Lymphocytes Abs 1.0 0.9 - 3.2 x10(3)/[facility] Monocytes % 13.0 % [facility] Monocyte Abs 0.2(L) 0.3 - 0.9 x10(3)/[facility] Eosinophils % 0.6 % [facility] Eosinophils Abs 0.0 0.0 - 0.4 x10(3)/[facility] Basophils % 0.6 % [facility] Basophils Abs 0.0 0.0 - 0.1 x10(3)/[facility] Immature Gran % 0.00 % [facility] [...] 0.00 - 0.04 x10(3)/[facility] Blood specimen (specimen) 05/19/2016 11:32 AM EDT 05/19/2016 11:41 AM EDT Narrative Resulting Agency Comment Spec In Lab Alirio Esparza MD HEMATOLOGY ORDERABL ES [facility] [place] [address] * (ABNORMAL) Hemogram (05/19/2016 11:32 AM EDT) WBC 1.6(Critic al) 4.0 - 9.5 x10(3)/[facility] Comment: This result has been called to DR ALIRIO ESPARZA by Alivia Ibarra on 05 19 2016 at 1228, and has been read back. RBC 3.96(L) 4.00 - 5.21 x10(6)/mc L [facility] Hemoglobin 12.5 11.7 - 15.5 gm/dL [facility] Hematocrit 37.9 35.7 - 45.8 % [facility] MCV 95.7(H) 82.6 - 94.4 fL [facility] MCH 31.6 27.1 - 32.0 pg [facility] MCHC 33.0 31.7 - 35.0 gm/dL [facility] Platelets 227 145 - 357 x10(3)/mc L [facility] RDWSD 40.5 37.0 - 46.0 [facility] RDWCV 11.5 11.5 - 14.1 % [facility] MPV 8.4 7.6 - 12.9 [facility] nRBC % Auto 0.0 % [facility] nRBC Abs Auto 0.000 0.000 - 0.000 x10(3)/ L [facility] Blood specimen (specimen) 05/19/2016 11:32 AM EDT 05/19/2016 11:41 AM EDT Narrative Resulting Agency Comment Spec In Lab Alirio Esparza MD HEMATOLOGY ORDERABL ES Performing Organization Address City/State/[facility] Co de Phone Number [facility] [place] [address] * Antibody screen (05/19/2016 11:32 AM EDT) Ab Screen Interp Negative [facility] Expires at 2366 on: 07/03/2016 [facility] Comment: Corrected from 06/11/16 12:00 [Unknown] on 06/09/16 05:51 by Bethanie Tomlinson I.. Corrected from 07/03/16 12:00 [Unknown] on 05/21/16 06:00 by Shelia Barrera Blood specimen (specimen) 05/19/2016 11:32 AM EDT 05/19/2016 11:35 AM EDT Narrative Resulting Agency Comment Spec In Lab Alirio Esparza MD BLOOD BANK LAB [place] Performing Organization Address City/[facility]/ZIP Co de Phone Number [facility] [place] [address] * ABO/Rh Typing (05/19/2016 11:32 AM EDT) ABORH Type B Pos [facility] Blood specimen (specimen) 05/19/2016 11:32 AM EDT 05/19/2016 11:35 AM EDT Narrative Resulting Agency Comment Spec In Lab Alirio Esparza MD BLOOD BANK LAB [place] Performing Organization Address [facility] Co de Phone Number [facility] [place] [address] * Basic Metabolic Panel (non-fasting) (05/19/2016 11:32 AM EDT) [facility] Signature Glucose Lvl 86 65 - 199 mg/dL [facility] Comment:Diabetes: >=200 mg/d L plus symptoms BUN 13 8 - 18 mg/dL [facility] Creatinine 0.95 0.70 - 1.20 mg/dL [facility] Comment: Please note that the pediatric reference intervals supplied above were not validated at [facility]. Results from pediatric patients should be interpreted in conjunction to the patient's age, height and muscle mass. Sodium 140 135 - 145 mmol/L [facility] Potassium 4.3 3.5 - 5.0 mmol/L [facility] [...] [facility] CO2 27 22 - 31 mmol/L [facility] Anion Gap 12 5 - 15 mmol/L [facility] Calcium 10.1 8.5 - 10.5 mg/dL [facility] Estimated GFR 60 >=60 [facility] Comment: [...] the following links into your internet browser. [email or web address] Blood specimen (specimen) 05/19/2016 11:32 AM EDT 05/19/2016 11:41 AM EDT Narrative Resulting Agency Comment Spec In Lab Alirio Esparza MD CHEMISTRY ORDERABLE S [facility] [address] documented in this encounter Visit Diagnoses Diagnosis Nonrheumatic aortic valve stenosis Aortic valve disorders documented in this encounter Care Teams Spooler Rubber Strand Relationship Specialty Start Date End Date Deborah Quiroga APRN PCP - General Family Medicine 03/24/16 02/04/23 documented as of this encounter
--- OUTSIDE RECORDS SUMMARY | 2024-02-24 14:04 | XMS_ITS | Encounter Summary ---
Author Organization [facility] Address [facility] [place] [address] Care Team Providers Care Glass Bead Maker Name Role Phone Ashley Quirogazac Shields APRN Primary Care Provider [phone] Reason for Visit * Auth/Cert Specialty Diagnoses / Procedures Referred By Crispin t Referred To Contact Diagnoses AVS Procedures CARDIAC CATHETERIZATION Referral ID Status Reason Start Date Expiration Date Visits Re quested Visits Authorized [id number] 1 1 Encounter Details Date Type Department Care Team (Late st Contact Info) Description 06/03/2016 7:30 AM EDT - 06/03/2016 8:30 AM [place] [phone] Mario Alberto Escobedo MD [facility] [place] [address] CARDIAC CATHETERIZATION Social History Tobacco Use Types [...] by your doctor, do not take any dwjp-ekc-yicduhd medicinesor herbal preparations without first discussing this with your doctor or pharmacist. There is the possibility of side effects and interactions when these are combined. Follow Up Care Who to call with questions or problems If there are any questions or problems that you think might be related to your cardiac cath or angioplasty, contact the optical glass inspector information specialist by calling [facility] at . * Patient Instructions* Felicia Corrigan - 06/03/2016 9:33 AM EDT Cardiology Instructions Call your doctor if: Chest pain, dyspnea, pain or swelling in legs occurs. If you have non-emergent questions between now and the time of your follow up appointments: -During 8am-5pm Wednesday through Wednesday call [phone] to speak with a nurse in the cardiology clinic -All other times call [phone] and ask to speak to the cloth boil off machine operator information specialist. MEDICATIONS - restart your spironolactone, discontinue [...] Appointments: Primary care provider: Cardiology: Deborah Hahn, BORE MILL OPERATOR FOR PLASTIC [phone] Follow up as planned or as needed. Dr. Esparza [phone] Other follow-up appointment: Hematology - Dr. Mario [...] 11:30 AM EST Office [place] [address] [facility] [place] [address] 03/01/2025 4:15 PM EDT Office Visit Dermatology at [address] [place] [phone] Marek Bonilla MD [address] [place] [address] DERMATOLOGY [place], [place] [phone] documented as of this encounter Procedures Procedure [...] Green Tube HOLD (06/03/2016 11:45 AM EDT) [facility] Green Hold Sample in lab. [facility] Blood specimen (specimen) Venous Draw / Unknown 06/03/2016 11:45 AM EDT 06/03/2016 12:12 PM EDT Mario Alberto Escobedo MD CHEMISTRY ORDERABLES Performing Organization Address City/[facility] Co de Phone Number [facility] [place] [address] * Methylmalonic acid, serum (06/03/2016 11:45 AM EDT) [facility] Methylmalonic Acid 0.21 <=0.40 nmol/mL [facility] Comment: Test Performed by: [place] [address] Cra Officer: Raymond Chaudhry II, M.D., Ph.D. Blood specimen (specimen) 06/03/2016 11:45 AM EDT 06/03/2016 1:57 PM EDT Narrative Resulting Agency Comment Spec In Lab Mario Alberto Escobedo MD CHEMISTRY ORDERABLES Performing Organization Address City/[facility]/ZIP Co de Phone Number [facility] [place] [address] * Granulocyte Antibody (06/03/2016 11:45 AM EDT) [facility] Granulocyte Ab Negative Not Applicable [facility] Comment: ADDITIONAL INFORMATION Method: Immunofluorescent Assay Performing Laboratory CLIA# [id number] This test was developed and its performance characteristics determined by [facility] in a manner consistent with CLIA requirements. This test has not been cleared or approved by the U.S. Food and Drug Administration. Test Performed by: [facility] - [address] [address] Cra Officer: Raymond Chaudhry II, M.D., Ph.D. Blood specimen (specimen) 06/03/2016 11:45 AM EDT 06/03/2016 1:57 PM EDT Narrative Resulting Agency Comment Spec In Lab Mario Alberto Escobedo MD IMMUNOLOGY ORDERABLE S Performing Organization Address [facility] de Phone Number [facility] [place] [address] * TSH (06/03/2016 11:45 AM EDT) TSH 2.18 0.27 - 4.20 mcIU/mL [facility] Blood specimen (specimen) 06/03/2016 11:45 AM EDT 06/03/2016 12:11 PM EDT Narrative Resulting Agency Comment Spec In Lab Mario Alberto Escobedo MD CHEMISTRY ORDERABLES Performing Organization Address [facility] de Phone Number [facility] [place] [phone] * Homocysteine Total, Plasma (06/03/2016 11:45 AM EDT) Homocyst Tot 9 <=15 mcmol/L [facility] Blood specimen (specimen) 06/03/2016 11:45 AM EDT 06/03/2016 12:11 PM EDT Narrative Resulting Agency Comment Spec In Lab Mario Alberto Escobedo MD CHEMISTRY ORDERABLES Performing Organization Address [facility] Co de Phone Number [facility] [place] [address] * Folate, serum (06/03/2016 11:45 AM EDT) Folate Lvl >20.0 4.8 - 24.2 ng/mL [facility] Blood specimen (specimen) 06/03/2016 11:45 AM EDT 06/03/2016 12:04 PM EDT Narrative Resulting Agency Comment Spec In Lab Mario Alberto Escobedo MD CHEMISTRY ORDERABLES Performing Organization Address City/[facility] Co de Phone Number [facility] [place] [address] * (ABNORMAL) Sedimentation rate (06/03/2016 11:45 AM EDT) Sed Rate 41(H) 0 - 20 mm/hr [facility] Blood specimen (specimen) 06/03/2016 11:45 AM EDT 06/03/2016 12:04 PM EDT Narrative Resulting Agency Comment Spec In Lab Mario Alberto Escobedo MD HEMATOLOGY ORDERABLE S Performing Organization Address [facility]/ZIP Co de Phone Number [facility] [place] [address] * Lactate Dehydrogenase (06/03/2016 11:45 AM EDT) LDH 164 110 - 220 unit/L [facility] Blood specimen (specimen) 06/03/2016 11:45 AM EDT 06/03/2016 12:11 PM EDT Narrative Resulting Agency Comment Spec In Lab Mario Alberto Escobedo MD CHEMISTRY ORDERABLES Performing Organization Address [facility]/ZIP Co de Phone Number [facility] [place] [address] * Comprehensive metabolic panel (non-fasting) (06/03/2016 11:45 AM EDT) Glucose Lvl 90 65 - 199 mg/dL [facility] Comment:Diabetes: >=200 mg/d L plus symptoms BUN 11 8 - 18 mg/dL [facility] Creatinine 0.83 0.70 - 1.20 mg/dL [facility] Comment: Please note that the pediatric reference intervals supplied above were not validated at [facility]. Results from pediatric patients should be interpreted in conjunction to the patient's age, height and muscle mass. Sodium 143 135 - 145 mmol/L [facility] Potassium 4.0 3.5 - 5.0 mmol/L [facility] Comment: Please note: ??Patients with WBC >100,000 may have falsely elevated Potassium levels. ??For accurate Potassium quantification in these patients send serum separator tube (gold top) for subsequent determinations. ??Contact the Clinical Chemistry Laboratory if there are any questions. Chloride 104 98 - 107 mmol/L [facility] CO2 25 22 - 31 mmol/L [facility] Anion Gap 14 5 - 15 mmol/L [facility] Calcium 9.2 8.5 - 10.5 mg/dL [facility] Total Protein 7.0 6.1 - 8.0 gm/dL [facility] Albumin 4.0 3.2 - 5.2 gm/dL [facility] AST 17 0 - 30 unit/L [facility] ALT 9 0 - 30 unit/L [facility] Alk Phos 81 40 - 104 unit/L [facility] Total Bilirubin 0.4 0.2 - 1.3 mg/dL [facility] Bili, Direct 0.1 0.0 - 0.3 mg/dL [facility] Estimated GFR >60 >=60 ST [...] the following links into your internet browser. [email or web address] Blood specimen (specimen) 06/03/2016 11:45 AM EDT 06/03/2016 12:11 PM EDT Narrative Resulting Agency Comment Spec In Lab Mario Alberto Escobedo MD CHE[place] [address] documented in this encounter Visit Diagnoses Diagnosis [...] Hernandez) documented in this encounter Care Teams Glass Bead Maker Relationship Specialty Start Date End Date Deborah Quiroga APRN PCP - General Family Medicine 03/24/16 02/04/23 documented as of this encounter
--- OUTSIDE RECORDS SUMMARY | 2024-02-24 14:04 | XMS_ITS | Encounter Summary ---
Author Organization [facility] [place] [address] Care Team Providers Care Non Food Receiving Clerk Name Role Phone Mitchell Wilkes MD Primary Care Provider [phone] Encounter Details Date Type Department Care Team (Late st Contact Info) Description 01/19/2014 Orders Only Cardiology at [address] [address] Chele Randolph, EKATERINA [facility] [place] [address] Cardiomyopathy (Primary Dx) Social History Tobacco Use Types Packs/Day Years Used Date Smoking Tobacco: Never Assessed Sex and Gender Information Value Date Recorded Sex Assigned at Not on file Gender Identity Not on file Sexual Orientation Not on file documented as of this encounter Procedure Notes * Provider, Amy - 01/23/2014 1:00 PM EDTAssociated Order(s): CARDIAC CATHETERIZATION documented in this encounter Plan of Treatment Upcoming Encounters Date Type Department Care Team (Late st Contact Info) Description 06/05/2024 11:30 AM EST Office Visit [place] [address] Magdalena Peralta MD [facility] [place] [address] 03/01/2025 4:15 PM EDT Office Visit Dermatology at [place] [address] [place] [address] Marek Bonilla MD [address] [place] [address] documented as of this encounter Procedures Procedure Name Priority Date/Time Associated Diagnosis Comments CARDIAC CATHETERIZATION Routine 01/24/20 14 12:40 PM EDT Cardiomyopathy documented in this encounter Results * Cardiac Catheterization (01/23/2014 12:40 PM EDT) Anatomical Region Laterality Modality Other Narrative 01/26/2014 4:14 PM EDT Procedure Note Provider, Amy - 01/23/2014 1:00 PM EDT Nitesh Mcnair MD CARDIAC CATH ORDERAB LES documented in this encounter Visit Diagnoses Diagnosis Cardiomyopathy- Primary Other primary cardiomyopathies Cardiomyopathy Other primary cardiomyopathies documented in this encounter Care Teams Non Food Receiving Clerk Relationship Specialty Start Date End Date Mitchell Wilkes MD [facility] PCP - General 06/24/10 01/19/14 documented as of this encounter
--- OUTSIDE RECORDS SUMMARY | 2024-02-24 14:04 | XMS_ITS | Encounter Summary ---
Author Organization [facility] Address [facility] [place] [address] Care Team Providers Care Winchman/Crane Operator Name Role Phone Ashley Quirogazac Shields APRN Primary Care Provider [phone] Encounter Details Date Type Department Care Team (Late st Contact Info) Description 05/19/2016 10:00 AM EDT Office Visit [place] [address] Alirio Esparza MD [facility] DR CARDIOTHORACIC [place] [address] Nonrheumatic aortic valve stenosis Social History Tobacco [...] 11:30 AM EST Office Visit [place] [address] Magdalena Peralta MD [facility] DR RHEUMATOLOGY [place] [address] 03/01/2025 4:15 PM EDT Office Visit Dermatology at [address] [place] [address] Marek Bonilla MD [address] [facility] [place] [address] documented as of this encounter Results * [...] (Bezet) 448 ms MUSE SYSTEM Calculated P [place] 37 degrees MUSE SYSTEM Calculated R [place] 31 degrees MUSE SYSTEM Calculated T [place] 25 degrees MUSE SYSTEM INTERPRETATION Normal sinus [...] questions. [place] 101 98 - 107 mmol/L [facility] CO2 27 22 - 31 mmol/L [facility] Anion Gap 12 5 - 15 mmol/L [facility] Calcium 10.1 8.5 - 10.5 mg/dL [facility] Estimated GFR 60 >=60 [facility] Comment: This estimated GFR (eGFR) [...] the following links into your internet browser. [email or web address] Blood specimen (specimen) 05/19/2016 11:32 AM EDT 05/19/2016 11:41 AM EDT Narrative Resulting Agency Comment Spec In Lab Alirio Esparza MD CHEMISTRY ORDERABLE S [facility] [place] [address] documented in this encounter Visit Diagnoses Diagnosis Nonrheumatic aortic valve stenosis Aortic valve disorders Nonrheumatic aortic valve stenosis Aortic valve disorders documented in this encounter Care Teams Winchman/Crane Operator Relationship Specialty Start Date End Date Deborah Quiroga APRN PCP - General Family Medicine 03/24/16 02/04/23 documented as of this encounter
--- OUTSIDE RECORDS SUMMARY | 2024-02-24 14:04 | XMS_ITS | Encounter Summary ---
[place] [address] Care Team Providers Care Labor Expediter Name Role Phone Ashley Quirogan Cornelius ANURAG Primary Care Provider [phone] Encounter Details Date Type Department Care Team (Late st Contact Info) Description 03/24/2016 Notes [place] [address] Alfa Lua Social History Tobacco Use Types [...] assessments completed: Wadsworth Score: 6/6 IADL: 7/7 Bench Jeweler Strength Trials: 18.4, 15.0, 16.8 (right hand dominant) 5 meter walk test in seconds x3: 4.98, 4.88, 4.45 KCCQol: 98% Alfa Lua documented in this encounter Plan of Treatment Upcoming Encounters Date Type Department Care Team (Late st Contact Info) Description 06/05/2024 11:30 AM EST Office [place] [address] Magdalena Peralta MD [facility] DR [place] [address] 03/01/2025 4:15 PM EDT Office Visit Dermatology at [place] [address] [facility] [place] [address] Marek Bonilla MD [address] [facility] [place] [address] documented as of this encounter Visit Diagnoses Not on filedocumented in this encounter Care Teams Labor Expediter Relationship Specialty Start Date End Date Deborah Quiroga, ANURAG PCP - General Family Medicine 03/24/16 02/04/23 documented as of this encounter
--- OUTSIDE RECORDS SUMMARY | 2024-02-24 14:04 | XMS_ITS | Encounter Summary ---
[place] [address] Care Team Providers Care Clinical Services Manager Name Role Phone Jerel Sofia Garcia APRN Primary Care Provider [phone] Encounter Details Date Type Department Care Team (Late st Contact Info) Description 11/12/2014 8:10 AM EDT - 11/12/2014 11:59 PM EDT Hospital [place] [phone] CLINIC, DR ABE Burrell, Antelmo Porter MD [address] [place] [address] Discharge Disposition: Home Social History Tobacco Use [...] 11:30 AM EST Office [place] [address] Magdalena Peralta MD [facility] [place] [address] 03/01/2025 4:15 PM EDT Office Visit Dermatology at [place] [address] [facility] [place] [address] Marek Bonilla MD [address] [facility] [place] [address] documented as of this encounter Procedures Procedure [...] mLs documented in this encounter Care Teams Clinical Services Manager Relationship Specialty Start Date End Date Sofia Beltrán APRN [address] [place] [address] PCP - General 11/12/14 03/23/16 documented as of this encounter
--- OUTSIDE RECORDS SUMMARY | 2024-02-24 14:04 | XMS_ITS | Encounter Summary ---
Author Organization [facility] Address [facility] [place] [address] Care Team Providers Care Sample Clerk Name Role Phone Junaid Deborah Shields APRN Primary Care Provider [phone] Encounter Details Date Type Department Care Team (Latest Contact Info) Description 05/19/2016 11:00 AM EDT Clinical [place] [address] Nonrheumatic aortic valve stenosis Social History Tobacco [...] 11:30 AM EST Office [place] [address] Magdalena Peralta MD [facility] [place] [address] 03/01/2025 4:15 PM EDT Office Visit Dermatology at [place] 580 [place] [address] Marek Bonilla MD [address] [facility] [place] [address] documented as of this encounter Procedures Procedure [...] (Bezet) 448 ms MUSE SYSTEM Calculated P Julian 37 degrees MUSE SYSTEM Calculated R Julian 31 degrees MUSE SYSTEM Calculated T Julian 25 degrees MUSE SYSTEM INTERPRETATION Normal sinus rhythm Normal ECG No previous ECGs available Confirmed by MD Becca, Deangelo ([id number]) on 05/19/2016 5:23:33 PM MUSE SYSTEM 05/19/2016 11:4 3 AM EDT 05/19/2016 5:23 PM EDT Alirio Esparza MD ECG ORDERABLES MUSE SYSTEM documented in this encounter Visit Diagnoses Diagnosis Nonrheumatic aortic valve stenosis Aortic valve disorders documented in this encounter Care Teams Sample Clerk Relationship Specialty Start Date End Date Deborah Quiroga, EXPLOSIVES OPERATOR PCP - General Family Medicine 03/24/16 02/04/23 documented as of this encounter
--- OUTSIDE RECORDS SUMMARY | 2024-02-24 14:04 | XMS_ITS | Encounter Summary ---
Author Organization [facility] [place] [address] Care Team Providers Care Data Entry Machine Operator Name Role Phone EitanDanni ANURAG Primary Care Provider [phone] Encounter Details Date Type Department Care Team (Late st Contact Info) Description 01/22/2014 Telephone Cardiology at [address] [phone] Cynthia Arrington LPN Social History Tobacco Use [...] LPN - 01/23/2014 2:39 PM EDT This tag writer did not receive a call back [...] 11:30 AM EST [place] [address] Magdalena Peralta MD [facility] [place] [address] 03/01/2025 4:15 PM EDT Office Visit Dermatology at [place] [address] [facility] [place] [address] Marek Bonilla MD [address] [facility] [place] [address] documented as of this encounter Visit Diagnoses Not on filedocumented in this encounter Care Teams Data Entry Machine Operator Relationship Specialty Start Date End Date Danni Laird APRN [address] [place] [address] PCP - General 01/23/14 11/11/14 documented as of this encounter
--- OUTSIDE RECORDS SUMMARY | 2024-02-24 14:04 | XMS_ITS | Encounter Summary ---
Author Organization [facility] Address [facility] [place] [address] Care Team Providers Care Coke Still Cleaner Name Role Phone Deborah Quiroga APRN Primary Care Provider [phone] Encounter Details Date Type Department Care Team (Late st Contact Info) Description 05/22/2016 Orders Only Cardiology at [address] [phone] Chele Randolph PA [facility] [place] [address] Aortic valve stenosis, unspecified etiology Social History [...] 11:30 AM EST Office [place] [address] Magdalena Peralta MD [facility] [place] [address] 03/01/2025 4:15 PM EDT Office Visit Dermatology at [address] [phone] Marek Bonilla MD 580 [place] [address] documented as of this encounter Procedures Procedure Name Priority Date/Time Associated Diagnosis Comments CARDIAC CATHETERIZATION Routine 06/03/20 16 9:13 AM EDT Aortic valve stenosis, unspecified etiology documented in this encounter Results * CARDIAC CATHETERIZATION (06/03/2016 9:13 AM EDT) Anatomical Region Laterality Modality Other Narrative 06/03/2016 10:13 AM EDT ?[facility] ? Cardiac Catheterization/Intervention Report ? Patient Name: Purnima Thacker. ? Procedure Date: 06/03/2016 ? A #: [id number] ? Primary Physician: Fanny, Nitesh E ? Case #: [id number] ? File Name: [id number] ? Catheterization Order Number: [id number] ? [facility] ?District Manager Primary [facility] ? Final Report [place], [place] ? Patient Name: ? Purnima M. Kirstie ? ID#: ?[id number] ? : ?1955 ? Procedure Date: ? June 03, 2016 ? Case #: ? [id number] ? Room: ? 1 ? Case Physician: [...] no symptom, no angina (w/i 14 days). [place]ian ?Cardiovascular Society angina class was 0. This [...] Procedure Note Nitesh Escobedo MD - 09/21/2016 [facility] Cardiac Catheterization/Intervention Report Patient Name: Purnima Thacker Procedure Date: 06/03/2016 A #: [id number] Primary Physician: Nitesh Escobedo Case #: [id number] File Name: [id number] Catheterization Order Number: [id number] [facility] FinalReport [place], [place] Patient Name: Purnima Thacker ID#:[id number] :1955 Procedure Date: June 03, 2016 Case [...] with: no symptom, no angina (w/i 14 days).[place] Cardiovascular Society angina class was 0. This [...] etiology documented in this encounter Care Teams Coke Still Cleaner Relationship Specialty Start Date End Date Deborah Quiroga, RESEARCH EDITOR PCP - General Family Medicine 03/24/16 02/04/23 documented as of this encounter
--- OUTSIDE RECORDS SUMMARY | 2024-02-24 14:04 | XMS_ITS | Encounter Summary ---
[place] [address] Care Team Providers Care Air Route Controller Name Role Phone Mitchell Wilkes MD Primary Care Provider Reason for Visit * Reason Onset Date Comments Other 01/18/2014 Encounter Details Date Type Department Care Team (Late st Contact Info) Description 01/18/2014 Telephone Cardiology at [address] [address] Jesusita Garces Other Social History [...] 11:30 AM EST Office Visit [place] [address] Magdalena Peralta MD [facility] [place] [address] 03/01/2025 4:15 PM EDT Office Visit Dermatology at [place] 580 [place] [address] Marek Bonilla MD 580 [facility] DERMATOLOGY [place], [place] [address] documented as of this encounter Visit Diagnoses Not on filedocumented in this encounter Care Teams Air Route Controller Relationship Specialty Start Date End Date Mitchell Wilkes MD [facility] PCP - General 06/24/10 01/19/14 documented as of this encounter
--- OUTSIDE RECORDS SUMMARY | 2024-02-24 14:04 | XMS_ITS | Encounter Summary ---
Author Organization [facility] Address [facility] [place] [address] Care Team Providers Care Teacher Public Health Name Role Phone Ashley Quirogan Sylvia ANURAG Primary Care Provider [phone] Reason for Visit * Consultation (Urgent) - Closed Specialty Diagnoses / Procedures Referred By Crispin t Referred To Contact Cardiac Surgery Diagnoses aortic stenosis, consideration for valve replacement Antelmo Burrell MD [address] [place] [address] Alirio Esparza MD [facility] DR CARDIOTHORACIC [place] [address] Referral ID Status Reason Start Date Expiration Date V isits Requested Visits Authorized [id number] Closed Connection Center 03/04/2016 03/04/2017 1 1 Encounter Details Date Type Department Care Team (Late st Contact Info) Description 03/24/2016 10:40 AM EDT Office [place] [address] Alirio Esparza MD [facility] DR C[place] [address] Aortic valve stenosis, unspecified etiology Social History [...] This is a patient of Antelmo Burrell [facility] Cardiology. Mrs. Thacker is being sent [...] 30 minute visit, 20 minutes were spent [id number] with the patient discussing aortic stenosis and valve replacement. documented in this encounter Plan of Treatment Upcoming Encounters Date Type Department Care Team (Mi st Contact Info) Description 06/05/2024 11:30 AM EST Office [place] [address] Magdalena Peralta MD [facility] [place] [address] 03/01/2025 4:15 PM EDT Office Visit Dermatology at [place] [address] [facility] [place] [address] Marek Bonilla MD [address] [facility] [place] [address] documented as of this encounter Visit Diagnoses Diagnosis Aortic valve stenosis, unspecified etiology documented in this encounter Care Teams Teacher Public Health Relationship Specialty Start Date End Date Deborah Quiroga APRN PCP - General Family Medicine 03/24/16 02/04/23 documented as of this encounter
--- OUTSIDE RECORDS SUMMARY | 2024-02-24 14:04 | XMS_ITS | Encounter Summary ---
Author Organization [facility] Address [facility] [place] [address] Care Team Providers Care Luster Applicator Name Role Phone Danni Laird APRN Primary Care Provider [phone] Encounter Details Date Type Department Care Team (Late st Contact Info) Description 01/23/2014 Orders Only Cardiology at [address] [phone] Lee Kincaid MD [facility] [place] [place] [address] SOB (shortness of breath) (Primary Dx) Social [...] AM EST Office Visit Rhe[place] [address] Magdalena Peralta MD [facility] [place] [place] [address] 03/01/2025 4:15 PM EDT Office Visit Dermatology at [address] [place] [address] Marek Bonilla MD [address] [place] [address] [place] [address] documented as of this encounter Results * Echocardiogram Transthoracic(Leb) (01/23/2014 3:17 PM EDT) EF 50 HEART[facility] SYSTEM Anatomical Region Laterality Modality Other 01/23/2014 Narrative 01/23/2014 4:35 PM EDT Procedure: ? Transthoracic Echocardiogram Patient: ? ANDREW ECHOLS M ?(Age): 1955(58) Med Rec#: ?[id number] ? Sex: ?F ? Site Loc: ?[facility] ? Ht / Wt: ??158(cm)/93(kg) Pt. Loc: ? Adult Floor ?BSA: ?2.02 Study Date: ?01/23/2014 ? Pt. Type: Inpatient Tape: ? Referring: [place] Kincaid ([id number]) Referring: [facility] Prof: Miguel Beverly Diagnosis:CPT Code(s): ??Echo Full (37236), ??Spectral Doppler (89842), Color Doppler (59552), Indication(s): ??Aortic stenosis Rhythm: Sinus HR ?BP [...] ? Mid-Inferior ?Hypokinetic ? Mid-Inferoseptal ?Hypokinetic ? [place]-Septal ? Hypokinetic ? [place]-Anterior ? Hypokinetic ? [place]-Lateral ?Hypokinetic ? [place]-Inferior ? Hypokinetic ? [place]-Tip ?Hypokinetic ? Chambers ?Value ?Units (Range) ? [...] 01/23/2014 16:34:37 Images reviewed and interpretation verified [facility] Cardiac Ultrasound Laboratory Procedure Note Lee Kincaid MD - 01/23/2014 Procedure: Transthoracic Echocardiogram Patient: ANDREW Mejias (Age): 1955(58) Med Rec#: [id number] Sex: F Site Loc: [facility] Ht / Wt: 158(cm)/93(kg) Pt. Loc: Adult Floor BSA: 2.02 Study Date: 01/23/2014 Pt. Type: Inpatient Tape: Referring: Lee Kincaid ([id number]) Referring: [facility] Prof: Miguel Beverly Diagnosis:CPT Code(s): Echo Full (64455), Spectral Doppler (05289), Color Doppler (69481), Indication(s): Aortic stenosis Rhythm: Sinus HR BP [...] Hypokinetic Mid-Posterolateral Hypokinetic Mid-Inferior Hypokinetic Mid-Inferoseptal Hypokinetic [place]-Septal Hypokinetic [place]-Anterior Hypokinetic [place]-Lateral Hypokinetic [place]-Inferior Hypokinetic [place]-Tip Hypokinetic Chambers Value Units (Range) IVSd 2D [...] 01/23/2014 16:34:37 Images reviewed and interpretation verified [facility] Cardiac Ultrasound Laboratory Lee Kincaid MD ECHO ORDERABLES documented in this encounter Visit Diagnoses Diagnosis SOB (shortness of breath)- Primary Shortness of breath documented in this encounter Care Teams Luster Applicator Relationship Specialty Start Date End Date Danni Laird APRN [address] [facility] [place] [address] PCP - General 01/23/14 11/11/14 documented as of this encounter
[2024-02-24 14:17] LABS: Absolute Basophil Count 0.02 10^3/uL (0.0-0.2); Absolute Eosinophil Count 0.03 10^3/uL (0.0-0.7); Absolute Lymphocyte Count 0.74 10^3/uL (1.2-3.4); Absolute Monocyte Count 0.32 10^3/uL (0.1-0.8); Absolute Neutrophil Count 1.59 10^3/uL (1.2-6.7); Basophils % 0.7 %; Eosinophils % 1.1 %; HCT 32.8 % (36.0-46.0); HGB 10.6 g/dL (11.2-15.7); Lymphocytes % 27.4 %; MCH 33.3 pg (27.0-33.0); MCHC 32.3 % (32.0-36.0); MCV 103 fL (80-95); MPV 9.1 fL (8.0-11.0); Monocytes % 11.9 %; Neutrophils % 58.9 %; Platelet Count 149 10^3/uL (130-400); RBC 3.18 10^6/uL (3.93-5.22); RDW 11.9 % (11.7-14.6); RDW-SD 45.1 fL
[2024-02-24 15:41] LABS: Anion Gap 8.3 mmol/L (3-11); BUN 16 mg/dL (7-18); CO2 28.7 mmol/L (21.0-32.0); CREATININE 0.9 mg/dL (0.55-1.02); Calcium 9.8 mg/dL (8.5-10.1); Chloride 107 mmol/L (98-107); Estimated GFR 69.64 (mL/min/1.73m2); Ferritin 277 ng/mL (8-252); Glucose 125 mg/dL (74-106); Sodium 144 mmol/L (136-145); Vitamin B12 861 pg/mL (193-986)
[2024-02-24 15:43] LABS: Folate > 20.0 ng/mL (8.6-20.0)
== END 2024-02-24 13:55 | disposition home or self-care (01) ==
LOC: LBO 13:55
PROVIDERS: PCP Family Medicine; Visit Provider Surgery
DX: I10 Essential (primary) hypertension (principal); I42.9 Cardiomyopathy, unspecified; I42.8 Other cardiomyopathies; Z95.2 Presence of prosthetic heart valve; Z95.3 Presence of xenogenic heart valve; I73.00 Raynaud's syndrome without gangrene; E78.5 Hyperlipidemia, unspecified; R73.01 Impaired fasting glucose; E66.01 Morbid (severe) obesity due to excess calories; Z68.41 Body mass index [BMI] 40.0-44.9, adult; E53.8 Deficiency of other specified B group vitamins; K57.90 Diverticulosis of intestine, part unspecified, without perforation or abscess without bleeding; K42.9 Umbilical hernia without obstruction or gangrene; N18.9 Chronic kidney disease, unspecified; D64.9 Anemia, unspecified; D70.9 Neutropenia, unspecified; R76.8 Other specified abnormal immunological findings in serum; I63.9 Cerebral infarction, unspecified; G62.9 Polyneuropathy, unspecified; G25.0 Essential tremor; G47.33 Obstructive sleep apnea (adult) (pediatric); R57.0 Cardiogenic shock
CPT/HCPCS: 36415; 80048; 99215; 82607; 82728; 82746; 85025; 85045

== ENCOUNTER 2024-02-24 14:09 | Outpatient (RCR) | payer SELFPAY ==
[2024-02-01 14:39] VITALS: BP 109/55; PULSE 90
[2024-02-08 14:11] VITALS: BP 107/54; PULSE 91; O2SAT 96
[2024-02-15 14:05] VITALS: BP 105/52; PULSE 76
--- OUTSIDE RECORDS SUMMARY | 2024-02-15 14:05 | XMS_ITS | Encounter Summary ---
Author Organization [facility] Address [address] [place] [address] Care Team Providers Care Truck Crane Operator Helper Name Role Phone Ashley Chavez Primary Care Provider [phone] Encounter Details Date Type Department Care Team (Late st Contact Info) Description 06/23/2016 Results Only [facility] [phone] Matthew Acevedo, DO [address] [facility] TODD HAMILTON [address] [place] [id number] Social History Tobacco Use Types Packs/Day Years Used Date Smoking Tobacco: Never Assessed Sex and Gender Information Value Date Recorded Sex Assigned at Not on file Gender Identity Not on file Sexual Orientation Not on file documented as of this encounter Plan of Treatment Not on file documented as of this encounter Procedures Procedure Name Priority Date/Time Associated Diagnosis Comments CYTOGENETICS Routine 06/23/2016 0:00 EST FLOW CYTOMETRY Routine 06/23/2016 0:00 EST BONE MARROW/HEMPATH CONSULT Routine 06/23/2016 0:00 EST documented in this encounter Results * CYTOGENETICS (06/23/2016 0:00 EST) Pathology Report: CYTOGENETICS REPORT Reports generated via electronic interface contain original data; however they are lacking the format of the original report. Caution should be taken when reading/interpret ing unformatted reports. Name: ? 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 Accession #: ? [id number] : ? 1955 (Age: 60) ??F ?Collect Date: ? 06/23/2016 Location: ? [facility] ? Receive Date: ? 06/24/2016 Provider: ? MATTHEW ACEVEDO DO Copy to: ?WINTER TITUSP MARIO ALBERTO GATES MD ? INTERPRETATION: Normal female karyotype. There is no cytogenetic evidence of a clonal population. ? Document reviewed and electronically signed by: ? ELAD LIMA MD ? Report Date: ??07/03/2016 12:44 CLINICAL HISTORY: 60 yo female with leukopenia SPECIMEN: Bone marrow TEST PERFORMED: G-banded Karyotype ?? REPORT: No. Cells Counted: ??25 No. Cells Analyzed: ??25 No. Cells Karyotyped: ??25 Band Resolution: ??400 ?? KARYOTYPE: 46,XX[25] End of Report [facility] 06/23/2016 06/24/2016 Matthew Acevedo DO PATHOLOGY ORDER JODIE [facility] [address] [place] [address] * FLOW CYTOMETRY (06/23/2016 0:00 EST) Pathology Report: FLOW CYTOMETRY REPORT Reports generated via electronic interface contain original data; however they are lacking the format of the original report. Caution should be taken when reading/interpreting unformatted reports. Name: ? 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 Accession #: ? [id number] : ? 1955 (Age: 60) ??F ?Collect Date: ? 06/23/2016 00:00 Location: ? [facility] ? Receive Date: ? 06/24/2016 08:00 Provider: ?MATTHEW ACEVEDO DO Copy to: ?WINTER HANKINS MAINTENANCE SERVICE SUPERVISOR MARIO ALBERTO RAMOS MD ? FINAL IMMUNOPHENOTYPIC INTERPRETATION: ? Bone marrow, flow cytometric analysis: -No immunophenotypic evidence of a clonal cell population. ??See comment. ? COMMENT: The results of flow cytometry show no immunophenotypic evidence of involvement by a clonal lymphoproliferative or myeloproliferative disorder. ??Correlation of these findings with morphologic and clinical data is essential. ??Please refer to pathology report number [id number] for morphologic details. ? Document reviewed and electronically signed by: ? ELDA LIMA MD Report Date: ??06/26/2016 12:11 By the signature above, the attending physician certifies that he/she has personally conducted an evaluation of the described specimen and rendered or confirmed the above diagnosis. CLINICAL HISTORY: The patient is a 60-year-old woman with leukopenia. DESCRIPTION: The specimen consists of bone marrow that has been prepared using ammonium chloride lysing agent. ??Gating is performed using CD45 fluorescence and side scatter. ??Cellular viability (assessed by propidium iodide exclusion) is excellent (99%) among cells with CD45 and side scatter properties typical of lymphocytes and excellent (98%) among CD45+ events overall. ??Expression of the following antigens is tested: CD2, CD3, CD4, CD5, CD7, CD8, CD10, CD11c, CD14, CD16, CD19, CD20, CD22, CD23, CD38, CD45, CD56, CD57, FMC-7, HLA-DR, kappa, lambda, CD11b, CD13, CD33, CD34, and CD117. A majority of the lymphoid cells are T-lymphocytes (CD2+CD3+CD5+CD7+) with CD4+ and CD8+ subsets represented. ??The remaining lymphocytes are B-lymphocytes (CD19+CD20+) and NK-cells (CD2+CD3-CD16+CD56+). ??Among the B-cells, both kappa+ and lambda+ subsets are represented. A small population of hematogones is present. ??The remainder of the CD45+ events is predominantly of myeloid lineage. There is no increase in blasts or plasma cells. ? This test was developed and its performance characteristics determined by the Department of Pathology and Laboratory Medicine, [place], [place]. ??It has not been cleared or approved by the U.S. Food and Drug Administration. ??FDA does not require this test to go through premarket FDA review. ??This test is used for clinical purposes. ??It should not be regarded as investigational or for research. ??This laboratory is certified under the Clinical Laboratory Improvement Amendments (CLIA) as qualified to perform high complexity clinical laboratory testing. End of Report ?? [facility] 06/23/2016 06/24/2016 8:0 0 EST Matthew Acevedo DO PATHOLOGY ORDER JODIE [facility] [address] [place] [address] * BONE MARROW/HEMPATH CONSULT (06/23/2016 0:00 EST) Pathology Report: BONE MARROW REPORT Reports generated via electronic interface contain original data; however they are lacking the format of the original report. Caution should be taken when reading/interpreting unformatted reports. Name: ? 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 Accession #: ? [id number] : ? 1955 (Age: 60) ??F ?Collect Date: ? 06/23/2016 Location: ? [facility] ? Receive Date: ? 06/24/2016 Provider: ? MATTHEW ACEVEDO DO Copy to: ?WINTER HANKINS MAINTENANCE SERVICE SUPERVISOR MARIO ALBERTO RAMOS MD ? DIAGNOSIS: Peripheral Blood: - Leukopenia (WBC 1,450 /cmm) with absolute neutropenia (520 /cmm) and absolute lymphopenia (750 /cmm). - Macrocytosis without anemia (MCV 96.4 fL, Hgb 12.3gm/dl) Bone Marrow: - Cellular bone marrow with maturing trilineage hematopoiesis. See comment. ? DIAGNOSTIC COMMENT: The etiology of leukopenia is not readily apparent from review of this blood and bone marrow biopsy specimen. Diagnostic considerations for the findings seen here include infection, autoimmune or collagen vascular disorders, medication effects, and/or nutritional deficiencies. Dell dysplastic features are not seen in enough cells in any cell line in the current material to warrant a diagnosis of a myelodysplastic syndrome (MDS). Though the current findings do not rise to the level of a diagnosis of MDS, such a diagnosis could be supported if there is demonstration of a relevant clonal cytogenetic abnormality. Accordingly, the specimen has been submitted for cytogenetic analysis and the results will be reported separately. ? Document reviewed and electronically signed by: ? ELDA LIMA MD ? Report Date: ??06/26/2016 12:13 By the signature above, the attending physician certifies that he/she has personally conducted a gross and/or microscopic examination of the described specimens and rendered or confirmed the above diagnosis. TISSUE SUBMITTED: Bone marrow (Left posterior superior iliac crest): Biopsy, imprints, aspirates and filtered particle sections. ? CLINICAL DATA: This is a 60-year-old woman with leukopenia. Bone marrow biopsy is performed for evaluation. ? PERIPHERAL BLOOD: 06/23/2016: Hemoglobin 12.3 gm/dl, Hematocrit 37.0%, RBC 3.84 M/cmm, MCV 96.4 fl, MCH 32.0 pg, MCHC 33.2 g/dl, RDW 11.6%. ??White cells (all in cells/cmm): ?? Total 1,450, with 520 neutrophils, 750 lymphocytes, 150 monocytes, 10 eosinophils, 10 basophils. ??Platelet count 219,00/cmm. ??Review of the peripheral smears confirms these findings and shows red blood cell anisopoikilocytosis with microcytes, macrocytes, elliptocytes, dacryocytes, and non-specific poikilocytes. ? BONE MARROW: Biopsy (decalcified) #1: Aggregate biopsy length: 8 mm with carpenter packing trabeculae of lamellar bone, cellular bone marrow, and crush artifact. ??The fat:cell ratio is 50:50. ??The M:E ratio is 3:1. ??Megakaryocytes average 3/high power field with a range of 0 to 8. ??Plasmacytosis is moderate (2-10/hpf). ??Hemosiderin 1+ (0-4+) (Prussian Blue stain for iron). CD138 highlights plasma cells located predominantly as single cells near vessels with occasional small groups. Plasma cells are polytypic based on the kappa/lambda light chain immunostaining pattern and appear to account for less than 5% of the total marrow cellularity. Immunoperoxidase stains were performed on this case to further characterize the lesion. ANTIBODY(CLONE)(BLOCK) :RESULT CD138 (M115, Leica) ??(B1): ? SEE ABOVE DISCUSSION Lambda (polyclonal, Dako) ??(B1): [place] (polyclonal, Dako) ??(B1): Biopsy (decalcified) #2: Aggregate biopsy length: 8 mm with carpenter packing trabeculae of lamellar bone, cellular bone marrow, and crush artifact. ??The fat:cell ratio is variable but averages 50:50 in cellular areas. ??The M:E ratio is 3:1. Megakaryocytes average 3/high power field with a range of 0 to 8. ??Plasmacytosis is moderate (2-10/hpf). Hemosiderin 1+ (0-4+) (Prussian Blue stain for iron). There are two small, interstitial lymphoid aggregates composed of small lymphocytes with round to slightly irregular nuclear contours and a modest amount of cytoplasm. ??Theses aggregates are a mix of CD3 and CD20 positive T-cells and B-cells, respectively. A small lipogranuloma is noted. CD138 highlights plasma cells located predominantly as single cells near vessels with occasional small groups. Plasma cells are polytypic based on the kappa/lambda light chain immunostaining pattern and appear to account for less than 5% of the total marrow cellularity. Immunoperoxidase stains were performed on this case to further characterize the lesion. ANTIBODY(CLONE)(BLOCK) :RESULT CD3(T-cell) (Rabbit Monoclonal, SP7, Thermo Scientific) ??(B2): ? SEE ABOVE DISCUSSION CD20 (B-cell) (L26, Thermo Scientific) ??(B2): CD138 (M115, Leica) ??(B2): Lambda (polyclonal, Dako) ??(B2): [place] (polyclonal, Dako) ??(B2): NOTE: ??One or more of the reagents used in immunoperoxidase testing in this case may not have been cleared or approved by the U.S. Food and Drug Administration (FDA). ??The FDA has determined that such clearance or approval is not necessary. ??These tests are used for clinical purposes. ??They should not be regarded as investigational or for research. ??These reagents' performance characteristics have been determined by [facility]. ??The positive and negative controls worked appropriately. If immunoperoxidase staining has been performed on alcohol fixed cytology specimens, which has not been fully validated, the assays should be interpreted with caution and correlated with clinical data. ??This laboratory is certified under the Clinical Laboratory Improvement Amendments of 1988 (CLIA-88) as qualified to perform high complexity clinical laboratory testing. Filtered particle section: Consists of abundant blood clot and scattered hematopoietic tissue. ??The fat:cell ratio is 40:60. ??The M:E ratio is 3:1. Megakaryocytes average 1/high power field with a range of 0 to 6. ??Plasmacytosis is moderate (2-10/hpf). ?? Hemosiderin 1+ (0-4+) (Prussian Blue stain for iron). Smears: Poorly particulate and cellular Imprints: Particulate and cellular Granulopoiesis: Maturing with mild cytologic change with N:C asynchrony, cytoplasmic vacuolization, and hypogranularity. Erythropoiesis: Maturing with mild cytologic changes including N:C asynchrony, binucleation, atypical mitoses including late stage mitoses. Megakaryocytes: Moderate with a spectrum of normal forms. Other cells: Few lymphocytes, few plasma cells, few monocytes. Hemosiderin: No particles for evaluation (0-4+) (Prussian Blue stain for iron). 98% normoblasts, 2% sideroblasts. 500 Cell Differential Count Late Granulocytes ?60% Early Granulocytes ? 10% Erythroid series ? 20% Lymphocytes ? 6% Monocytes/histiocytes ?2% Plasma cells ? 1% Blasts ?1% Special Studies Cytogenetics ([id number]): Pending. Flow Cytometry ([id number]): No immunophenotypic evidence of a clonal cell population. ? End of Report [facility] 06/23/2016 06/24/2016 Matthew Acevedo DO PATHOLOGY ORDER JODIE [facility] [address] [place] [address] documented in this encounter Visit Diagnoses Not on filedocumented in this encounter Care Teams Truck Crane Operator Helper Relationship Specialty Start Date End Date Ashley Chavez ARNP [address] [place] [address] PCP - General 07/11/10 documented as of this encounter
--- OUTSIDE RECORDS SUMMARY | 2024-02-15 14:05 | XMS_ITS | Encounter Summary ---
Author Organization [facility] Address [address] [place] [address] Care Team Providers Care Pressurizer Name Role Phone Ashley Chavez Primary Care Provider [phone] Encounter Details Date Type Department Care Team (Late st Contact Info) Description 10/30/2022 Lab Requisition [facility] Pathology & Laboratory Medicine - [address] [address] Outr Resulting Lab, Provider Social History Tobacco Use Types Packs/Day Years Used Date Smoking Tobacco: Never Assessed Interpersonal Safety Answer Date Record ed Physically Hurt Never 03/03/2020 Verbally Threaten Not on file 03/03/2020 Sex and Gender Information Value Date Recorded Sex Assigned at Not on file Gender Identity Not on file Sexual Orientation Not on file documented as of this encounter Plan of Treatment Not on file documented as of this encounter Procedures Procedure Name Priority Date/Time Associated Diagnosis Comments SM (MORENO) ANTIBODY, IGG Routine 10/29/2022 14:00 EDT DOUBLE STRANDED DNA ANTIBODY, IGG Routine 10/29/2022 14:00 EDT documented in this encounter Results * ANTI DNA (DOUBLE STRANDED) (10/29/2022 14:00 EDT) Anti-DNA (Double Stranded) <12.3 <30.0 IU/mL 11/03/2022 13:08 EDT [facility] Comment: ? Negative: ??<30.0 IU/mL ? Borderline Positive: ??30.0 - 75.0 IU/mL ? Positive: ??>75.0 IU/mL Results were obtained with the INOVA QUANTA Lite dsDNA SC DOMO assay on the [employer] DSX. Blood VENOUS BLOOD / Unknown 10/29/2022 14:00 EDT 10/30/2022 19:27 EDT Provider Outr Resulting Lab IMMUNOLOGY A ND SEROLOGY ORDERABLES Performing Organization Address [facility] de Phone Number [facility] [address] [place] [address] * SM (MORENO) ANTIBODY (10/29/2022 14:00 EDT) [facility] SM ([place]) Antibody 18.5 <20.0 Units 11/03/2022 14:26 EDT [facility] Comment: ? Negative: <20.0 Units ? Weak Positive: 20.0 - 39.9 Units ? Moderate Positive: 40.0 - 80.0 Units ? Strong Positive: >80.0 Units Results were obtained with the INOVA QUANTA Lite Sm DOMO. ??Sm values obtained with different manufacturers' assay methods may not be used interchangeably. ??The magnitude of the reported IgG levels cannot be correlated to an endpoint titer. Blood VENOUS BLOOD / Unknown 10/29/2022 14:00 EDT 10/30/2022 19:27 EDT Provider Outr Resulting Lab IMMUNOLOGY A ND SEROLOGY ORDERABLES Performing Organization Address [facility] [address] [facility] de Phone Number [facility] [address] [place] [address] documented in this encounter Visit Diagnoses Not on filedocumented in this encounter Care Teams Pressurizer Relationship Specialty Start Date End Date Ashley Chavez ARNP [address] [place] [address] PCP - General 07/11/10 documented as of this encounter
--- OUTSIDE RECORDS SUMMARY | 2024-02-15 14:05 | XMS_ITS | Encounter Summary ---
Author Organization [facility] [place] [address] Care Team Providers Care Pattern Drum Maker Name Role Phone Magdalena Acosta MD Primary Care Provider [phone] Encounter Details Date Type Department Care Team (Late st Contact Info) Description 05/27/2023 Refill Cardiology at [address] [phone] Vero Marrero, RN Social History Tobacco Use Types Packs/Day Years Used Date Smoking Tobacco: Never Smokeless Tobacco: Never Alcohol Use Standard Drinks/Week Comments No 0 (1 standard drink = 0.6 oz pur e alcohol) none [facility] Inpatient Questions Answer Date Recorded Does Anyone Try to Keep You From Having Contact with Others or Doing Things Outside Your Home? no 05/08/2023 Feels Threatened by Someone no 01/2023 Feels Unsafe at Home or Work/School no 05/08/2023 Physical Signs of Abuse Present no 05/08/2023 Sex and Gender Information Value Date Recorded Sex Assigned at Not on file Gender Identity Not on file Sexual Orientation Not on file documented as of this encounter Miscellaneous Notes * Telephone Encounter - Vero Marrero RN - 05/27/2023 2:50 PM EDT TC to Nurse Sosa at [facility] to relay response from Jay Maza copied below. Nurse Sosa states they will send a new prescription to patient's preferred pharmacy and call the patient with the medication information. No print prescription sent to update med list. May 27, 2023 Jay Maza PA to Al 05/27/23 2:44 PM OK to change ticagrelor to Clopidogrel. Now, she should be taking ticagrelor 90mg BID. When she switches, she can take ticagrelor, then the next morning, stop ticagrelor, instead take clopidogrel 300mg once, then after that 75mg once daily. Jay Marrero rotor blade installer [facility] at [facility] [phone] * Telephone Encounter - Vero Marrero RN - 05/27/2023 1:46 PM EDT VM received from triage nurse Sosa at [facility] stating patient was seen today by Dr. Loya and reported concern over the cost of ticagrelor. They are calling to see if this can be changed to clopidogrel instead. Sosa is not sure if patient has started medication or not since being discharged. TC to patient who confirms she has started the Ticagrelor, but would like to change to a more affordable option, if possible. Vero Marrero [facility] at [facility] [address] documented in this encounter Plan of Treatment Upcoming Encounters Date Type Department Care Team (Late st Contact Info) Description 02/22/2024 4:15 PM EDT Office Visit Dermatology at [place] [address] [place] [address] Marek Bonilla MD [address] [place] [address] 06/05/2024 11:30 AM EST [place] [address] Magdalena Peralta MD [facility] [facility] [place] [address] documented as of this encounter Visit Diagnoses Diagnosis Aortic valve stenosis, etiology of cardiac valve disease unspecified documented in this encounter Care Teams Pattern Drum Maker Relationship Specialty Start Date End Date Magdalena Acosta MD [address] [place] [address] PCP - General Family Medicine 02/05/23 documented as of this encounter
--- OUTSIDE RECORDS SUMMARY | 2024-02-15 14:05 | XMS_ITS | Encounter Summary ---
Author Organization [facility] Address [facility] [place] [address] Care Team Providers Care Operations Research Manager Name Role Phone Magdalena Acosta MD Primary Care Provider [phone] Reason for Visit * Reason Comments Aortic Stenosis Coronary Artery Disease Hypertension Encounter Details Date Type Department Care Team (Latest Contact Info) Description 11/16/2023 11:40 AM EDT TH Visit (TeleHealth) Cardiology at [address] [place] [address] [place] [address] Aortic valve stenosis, etiology of cardiac valve disease unspecified; Coronary artery disease, unspecified vessel or lesion type, unspecified whether angina present, unspecified whether cher-ae heights or transplanted heart Social History Tobacco Use Types Packs/Day Years Used Date Smoking Tobacco: Never Smokeless Tobacco: Never Alcohol Use Standard Drinks/Week Comments No 0 (1 standard drink = 0.6 oz pur e alcohol) none [facility] Inpatient Questions Answer Date Recorded [...] on file documented as of this encounter Progress Notes * Jay Maza PA - 11/16/2023 11:40 AM EDT Images from the original note were not included. [facility] Interventional Cardiology CARDIOLOGY TELE VISIT NOTE 11/16/23 Patient: Purnima Thacker Prior to the initiation of our discussion, the risks and benefits of tele health visits were discussed, and the patient consented verbally to this being a virtual telehealth visit in lieu of an in person office visit. CARDIOLOGISTS: Antelmo Sharma MD ([facility] Cards) Maria Luz Mejia MD ([facility] Cards - [facility]) Problem List: Aortic valve stenosis: prior surgical AVR 2016 25mm, now s/p TAVR 23mm valve in valve (2022) HFrEF HTN Hyperlipidemia NICOLAS Obesity CAD: LM pci deployed during TAVR procedure for coronary protection - no CAD Patient Active Problem List Diagnosis Code Chronic idiopathic neutropenia D70.9 Aortic stenosis I35.0 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, 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) T82.857A Depressive disorder F32.A Diverticulosis K57.90 Essential hypertension I10 Essential tremor G25.0 Hyperlipidemia, unspecified E78.5 Obesity E66.9 NICOLAS (obstructive sleep apnea) G47.33 Rosacea L71.9 Neck pain M54.2 Mixed connective tissue disease M35.1 Symptomatic severe aortic stenosis with low ejection fraction I35.0 Mild coronary artery disease by [facility] 11/09/2022 I25.10 Heart failure with reduced ejection fraction due to heart valve disease I50.20, I38 Cardiogenic shock R57.0 S/P TAVR (transcatheter aortic valve replacement) Z95.2 HPI: Purnima Thacker is a 68 y.o. year old female who is interviewed via telephone for routine follow up discussion now 3 months after successful transfemoral Valve - in - valve TAVR, 23mm Brittney 3 inside 25mm surgical bioprosthesis from 2016. Her medical history is listed, and includes severe aortic valve stenosis (treated with 25mm surgical AVR in 2016)(now s/p valve in valve TAVR 23mm Sapien3), hypertension, hyperlipidemia, NICOLAS, mixed connective tissue disorder. She was admitted in 05/2023 with acute on chronic decompensated heart failure, was found to have severe stenosis of her bioprosthetic valve in nelsy cardiogenic shock. She had a complex tavr procedure. First, her bioprosthetic valve is only 5 years old. But it was failing, absolutely. She had known about this for several months while awaiting outpatient TAVR, but quickly decompensated prior to admission. She arrived in cardiogenic shock requiring pressors and with a newly identified decrement in her LVEF. Urgent valve in valve tavr was planned. LVEF had been filemon cribed as 20% (now recovered post TAVR). The subsequent Alirio TAVR high risk case was notable for coronary artery protection given low [id number] distance. There was no obstruction post Valve deployment, but the stent could not be removed safely, so it was deployed. 4.0 mm x 30mm in left main. She was loaded on brilinta aka ticagrelor. Immediately post valve deployment, chest compressions to circulate central epinephrine which was administered given her hypotension, low LVEF, and low cardiac reserve. She had a very reassuring recent echo in [facility], in scanned docs. LVEF 55%. Valve function normal as expected. She has been feeling quite well recently. She will continue to follow with Dr Mejia with serial echosurveillance of bioprostheses. She has no chest pain, pressure or palpitations. She does note some very mild peripheral edema. Shehas no dyspnea, no orthopnea. No syncope or lightheadedness. Stopped furosemide, restarted losartan. Switched metoprolol to XL long acting. She notes some mild retention of fluid in peripheral ankles. Brief ROS: Activity level: normal, unrestricted. No new orthopnea, PND, No lightheadedness, dizziness, syncope/pre-syncope. No new CP. Medications: Current Outpatient Medications Medication Sig Dispense Refill ticagrelor (Brilinta) 90 mg tablet Take 90 mg by mouth 2 times daily. (Still taking for another 2-3weeks 07/29/23) diclofenac (Voltaren) 1 % Gel Apply topically 4 times daily as needed. 150 g 3 spironolactone (Aldactone) 25 mg tablet Take 0.5 tablets by mouth daily. clopidogreL (Plavix) 75 mg tablet Take 1 tablet by mouth daily. she can take ticagrelor, then the next morning, stop ticagrelor, instead take clopidogrel 300mg once, then after that 75mg once daily. (Patient taking differently: Take 75 mg by mouth daily. she can take ticagrelor, then the next morning, stop ticagrelor, instead take clopidogrel 300mg once, then after that 75mg once daily. (Hasn't started yet 07/29/23)) 90 tablet 3 furosemide (Lasix) 20 mg tablet Take 1 tablet by mouth daily. 90 tablet 3 metoproloL tartrate (Lopressor) 25 mg tablet Take 1 tablet by mouth 2 times daily. 60 tablet 3 hydrOXYchloroQUINE (Plaquenil) 200 mg tablet Take 1 tablet by mouth daily. 90 tablet 12 nystatin (MYCOSTATIN) 100,000 unit/gram Powder Apply topically 2 times daily as needed. cyanocobalamin, Vitamin B-12, (Vitamin B-12) 1,000 mcg tablet Take 500 mcg by mouth daily. OneTouch Verio test strips Strip USE DAILY OneTouch Delica Plus Lancet 33 gauge Misc USE DAILY amoxicillin (AMOXIL) 500 mg Tablet Take 2,000 mg by mouth once as needed. Before dental acetaminophen (TYLENOL) 500 mg Tablet Take 2 tablets by mouth every 6 hours as needed for Pain (Please take up to 1,000 mg every 6 hours when experiencing pain -05/11.). 30 tablet 5 multivitamin (THERAGRAN) Tablet Take 1 tablet by mouth daily. atorvastatin (LIPITOR) 10 mg Tablet Take 10 mg by mouth daily. aspirin 81 mg EC tablet Take 81 mg by mouth daily. Medications were reviewed with patient. Labs: Lab Results Component Value Date WBC 4.6 07/08/2023 HGB 11.0 (L) 07/08/2023 HCT 33.2 (L) 07/08/2023 MCV 99.4 (H) 07/08/2023 PLATELET 166 07/08/2023 No results for input(s): NA, K, CL, CO2, BUN, CREATININE, GLUCOSE in the last 168 hours. Lab Results Component Value Date INR 1.3 05/13/2023 Lab Results Component Value Date CHLPL 179 02/28/2020 HDL 50 02/28/2020 TRIG 254 (EXTERNAL/ABN) 02/28/2020 LDLCHOL 79 02/28/2020 ECHO TTE 07/08/2023 Interpretation Summary Left ventricular systolic function is severely reduced. Left ventricular ejection fraction is estimated visually at 15-20%. Severe global hypokinesis. The left atrium is severely dilated. There is a bioprosthesis in the aortic position (TAVR, 23mm Corona valve, implanted 05/12/2023). The peak/mean gradient is estimated at 17/10 mmHg. Trivial regurgitation. There is mild to moderate mitral regurgitation (secondary MR). Other details as below. As compared to the prior echo report from 05/12/2023, there is no significant change (post-procedure). TTE 05/08/23 Interpretation Summary -Left ventricle is severely dilated (LVEDV index 81 mL/m2). Left ventricular systolic function is severely reduced. The left ventricular ejection fraction is 25% by Samuel's biplane. There is apical and anteroseptal akinesis with hypokinesis elswhere. -The right ventricle is of normal size. Right ventricular systolic function is normal. Right ventricular systolic pressure is 36 mmHg. -The left atrium is severely dilated. -There is very severe/critical stenosis of a bioprosthetic valve (mean gradient 40 mmHg, peak velocity 4.0 m/s, DI 0.15, stroke volume index 28 mL/m2). -There is moderate functional mitral regurgitation. -There is mild to moderate tricuspid regurgitation. -In direct comparison to a prior study dated 09/15/22, there has been a substantial decrement in LVEF (previously 55%). Severe prosthetic stensosis present on the prior study; similar mean gradient with decrement in LVEF suggests worsening stenosis. Mitral regurgitation is similar. 12 lead EKG: Sinus rhythm with frequent and consecutive Premature ventricular and fusion complexes Septal infarct , age undetermined ST & T wave abnormality, consider anterolateral ischemia Abnormal ECG When compared with ECG of 09-NOV-2022 11:17, T wave inversion now evident in Anterolateral leads Confirmed by MD Harshil, Haris Bell ([id number]) on 05/10/2023 8:11:46 AM Cardiac Cath 11/09/2022 Coronary Angiography: Dominance: Co-dominant Left Main The left main was normal, free of disease. Left Anterior Descending There was mild diffuse (<=25% stenosis) disease of the proximal segment of the left anterior descending artery (LAD). The mid segment of the LAD had a single discrete 20% stenosis. This lesion involved bifurcation. There was a 20% single discrete stenosis of the ostial segment of the first diagonal branch (Diagonal 1) of the LAD. Left Circumflex The left circumflex (LCX) was normal, free of disease. Right Coronary Artery The right coronary artery (RCA) was normal, free of disease. Indication for Selected Procedures: Right Heart catheterization was initiated for Nonrheumatic aortic (valve) stenosis (I35.0). Vascular Access: Vascular Access Management: Manual Compression of the right median antecubital vein access site was performed. Mechanical Compression of the right radial artery access site was performed. Conclusions: * Nonobstructive coronary artery disease RECENT ECHO 09/2023: Assessment: Mrs Thacker is a very pleasant 68 year old female patient with whom I discussed her recent care over the phone in the setting of recent valve - in- valve TAVR procedure, from which she is recovering quite well. Today we reviewed her medical history and recent procedures. She is asymptomatic and hemodynamically stable. Trial 3 days of lasix (recently stopped) to see effect on peripheral edema. : successful valve in valve TAVR (23mm corona brittney trans Femoral, inside 25mm surgical from 2017, with LM pci - could not safely remove pre-positioned stent post valve deployment, so deployed stent). On DAPT. Preserved LVEF, her ventricle has recovered nicely. CCS-o no angina, nYHA 1 no rest symptoms, no dyspnea with exertion. DAPT until 07/2024 at least (aspirin + plavix) F/U with Dr Mejia, repeat ECHo in one year. EKATERINA Thompson Time spent: [id number] 0-5min 7006MDH0 6-10min 8227CJV6 11-15min x [id number] 16-20min 6724QOI2 21-30min 8967DLT5 31-40min 1283HEV4 40+ min Jay Maza PA-C Interventional Cardiology [facility] Pager [phone] documented in this encounter Plan of Treatment Upcoming Encounters Date Type Department Care Team (Late st Contact Info) Description 02/22/2024 4:15 PM EDT Office Visit Dermatology at [address] [place] [address] Marek Bonilla MD [address] [place] [address] 06/05/2024 11:30 AM EST Office [place] [address] Magdalena Peralta MD [facility] [place] [address] documented as of this encounter Visit Diagnoses Diagnosis Aortic valve stenosis, etiology of cardiac valve disease unspecified Coronary artery disease, unspecified vessel or lesion type, unspecified whether angina present, unspecified whether cher-ae heights or transplanted heart documented in this encounter Care Teams Operations Research Manager Relationship Specialty Start Date End Date Magdalena Acosta MD [address] [place] [id number] PCP - General Family Medicine 02/05/23 documented as of this encounter
--- OUTSIDE RECORDS SUMMARY | 2024-02-15 14:05 | XMS_ITS | Encounter Summary ---
[place] [address] Care Team Providers Care Telecom Coordinator Name Role Phone Magdalena Acosta MD Primary Care Provider [phone] Encounter Details Date Type Department Care Team (Latest Contact Info) Description 10/05/2023 10:52 AM EST - 10/05/2023 11:59 PM [facility] Hospital En[place] [address] Mixed connective tissue disease Discharge Disposition: Home Social History Tobacco Use Types Packs/Day Years [...] on file documented as of this encounter Medications at Time of Discharge Medication Sig Dispensed Refills Start Date End Date losartan (Cozaar) 25 mg tablet Take 25 mg by mouth daily. 09/07/2023 metoprolol succinate XL (Toprol-XL) 50 mg ER 24 hr tablet Take 50 mg by mouth daily. 09/07/2023 diclofenac (Voltaren) 1 % Gel Apply topically 4 times daily as needed. 150 g 3 07/29/2023 spironolactone (Aldactone) 25 mg tabletIndications:HFr EF (heart failure with reduced ejection fraction),Hypertensio n, unspecified type Take 0.5 tablets by mouth daily. 07/20/2023 clopidogreL (Plavix) 75 mg tabletIndications:Aor tic valve stenosis, etiology of cardiac valve disease unspecified Take 1 tablet by mouth daily. she can take ticagrelor, then the next morning, stop ticagrelor, instead take clopidogrel 300mg once, then after that 75mg once daily. 90 tablet 3 07/20/2023 furosemide (Lasix) 20 mg tablet Take 1 tablet by mouth daily. 90 tablet 3 05/23/2023 metoproloL tartrate (Lopressor) 25 mg tablet Take 1 tablet by mouth 2 times daily. 60 tablet 3 05/22/2023 hydrOXYchloroQUINE (Plaquenil) 200 mg tablet Take 1 tablet by mouth daily. 90 tablet 12 03/18/2023 nystatin (MYCOSTATIN) 100,000 unit/gram Powder Apply topically 2 times daily as needed. 10/22/2022 cyanocobalamin, Vitamin B-12, (Vitamin B-12) 1,000 mcg tablet Take 500 mcg by mouth daily. OneTouch Verio test strips Strip USE DAILY 01/03/2022 OneTouch Delica Plus Lancet 33 gauge Misc USE DAILY 01/03/2022 amoxicillin (AMOXIL) 500 mg Tablet Take 2,000 mg by mouth once as needed. Before dental acetaminophen (TYLENOL) 500 mg Tablet Take 2 tablets by mouth every 6 hours as needed for Pain (Please take up to 1,000 mg every 6 hours when experiencing pain -05/11.). 30 tablet 5 09/25/2016 multivitamin (THERAGRAN) Tablet Take 1 tablet by mouth daily. atorvastatin (LIPITOR) 10 mg Tablet Take 10 mg by mouth daily. aspirin 81 mg EC tablet Take 81 mg by mouth daily. ticagrelor (Brilinta) 90 mg tablet Take 90 mg by mouth 2 times daily. (Still taking for another 2-3 weeks 07/29/23) 11/16/2023 documented as of this encounter Plan of Treatment Upcoming Encounters Date Type Department Care Team (Late st Contact Info) Description 02/22/2024 4:15 PM EDT Office Visit Dermatology at [address] [place] [address] Marek Bonilla MD [address] [facility] [place] [address] 06/05/2024 11:30 AM EST Office [place] [address] Magdalena Peralta MD [facility] [address] [place] [address] documented as of this encounter Procedures Procedure Name Priority Date/Time Associated Diagnosis Comments COMMON PULMONARY FUNCTION TEST Routine 10/05/2023 11:29 AM EST Mixed connective tissue disease documented in this encounter Results * Pulmonary Function Testing (10/05/2023 11:29 AM EST) FVC Actual Pre-BD 2.99 L COMPAS PFT FVC Pre-BD % of Predicted 116 % COMPAS PFT FVC Predicted 2.58 L COMPAS PFT FVC Lower Limits of Normal 1.9 L COMPAS PFT FVC Pre-BD Z-Score 0.95 COMPAS PFT FEV1 Actual Pre-BD 2.35 L COMPAS PFT FEV1 Pre-BD % of Predicted 116 % COMPAS PFT FEV1 Predicted 2.02 L COMPAS PFT FEV1 Lower Limits of Normal 1.48 L COMPAS PFT FEV1 Pre-BD Z-Score 1.05 COMPAS PFT FEV1 / FVC Actual Pre-BD 79 % COMPAS PFT FEV1/FVC Pre-BD Z-Score 0 COMPAS PFT GUZ17-68 Actual Pre-BD 2.41 % COMPAS PFT DME81-15 Predicted 1.8 % COMPAS PFT SBB86-03 Pre-BD % of Predicted 134 % COMPAS PFT ZVO78-70 Pre-BD Z-Score 0.81 COMPAS PFT DLCO Hb Actual Pre-BD 13.35 mL/min/mmHg COMPAS PFT DLCO Hb Pre-BD % of Predicted 76 % COMPAS PFT DLCO Hb Predicted 17.53 mL/min/mmHg COMPAS PFT DLCO Hb Pre-BD Z-Score -1.6 COMPAS PFT DLCO UNC ACT PRE-BD 13.47 mL/min/mmHg COMPAS PFT DLCO UNC PRE-BD % of PRED 77 % COMPAS PFT DLCO UNC Predicted 17.53 mL/min/mmHg COMPAS PFT DLCO UNC PRE-BD Z-SCORE -1.55 COMPAS PFT Narrative COMPAS PFT - 10/05/2023 11:29 AM EST FINDINGS: FEV1, FVC, and FEV1/VC are within normal limits. Diffusion capacity is normal. IMPRESSION: Normal spirometry. No diffusion impairment. Procedure Note Joya Guaman MD - 10/07/2023 FINDINGS: FEV1, FVC, and FEV1/VC are within normal limits. Diffusioncapacity is normal. IMPRESSION: Normal spirometry. No diffusion impairment. Kia Viramontes DO PFT ORDERABLES COMPAS PFT documented in this encounter Visit Diagnoses Diagnosis Mixed connective tissue disease Other specified diffuse disease of connective tissue documented in this encounter Care Teams Telecom Coordinator Relationship Specialty Start Date End Date Magdalena Acosta MD [address] [place] [address] PCP - General Family Medicine 02/05/23 documented as of this encounter
--- OUTSIDE RECORDS SUMMARY | 2024-02-15 14:05 | XMS_ITS | Encounter Summary ---
Author Organization [facility] [place] [address] Care Team Providers Care Registered Nurse Post Partum Name Role Phone Magdalena Acosta MD Primary Care Provider [phone] Reason for Referral * Diagnostic Test (Routine) - New Request Specialty Diagnoses / Procedures Referred By Contac t Referred To Contact Cardiology Diagnoses S/P TAVR (transcatheter aortic valve replacement) Procedures Echocardiogram Transthoracic Antelmo Sharma MD [facility] [place] [address] [facility] [place] [address] Referral ID Status Reason Start Date Expiration Date Visits Requested Visits Authorized [id number] New Request Specialty Service Requested 12/16/2023 12/15/2024 1 1 Encounter Details Date Type Department Care Team (Late st Contact Info) Description 12/16/2023 Orders Only Cardiology at [address] [address] Antelmo Sharma MD [facility] [id number] S/P TAVR (transcatheter aortic valve replacement) Social History Tobacco Use Types Packs/Day Years Used Date Smoking Tobacco: Never Smokeless Tobacco: Never Alcohol Use Standard Drinks/Week Comments No 0 (1 standard drink = 0.6 oz pur e alcohol) none DH IPV Inpatient Questions Answer Date Recorded Does Anyone [...] 4:15 PM EDT Office Visit Dermatology at [place] [address] [place] [phone] Marek Bonilla MD [address] [facility] [place] [address] 06/05/2024 11:30 AM EST Office [place] [address] Magdalena Peralta MD [facility] [place] [address] Scheduled Orders Name Type Priority Associated Diagnoses Order Schedule Echocardiogram Transthoracic Echocardiography Routine S/P TAVR (transcatheter aortic valve replacement) Expected: 12/16/2023 (Approximate), Expires: 06/17/2024 EKG 12 Lead ECG Routine S/P TAVR (transcatheter aortic valve replacement) Expected: 12/16/2023 (Approximate), Expires: 06/17/2024 CBC (with Diff) Lab Routine S/P TAVR (transcatheter aortic valve replacement) Expected: 12/16/2023 (Approximate), Expires: 06/17/2024 Comprehensive metabolic panel (non-fasting) Lab Routine S/P TAVR (transcatheter aortic valve replacement) Expected: 12/16/2023 (Approximate), Expires: 06/17/2024 documented as of this encounter Visit Diagnoses Diagnosis S/P TAVR (transcatheter aortic valve replacement) documented in this encounter Care Teams Registered Nurse Post Partum Relationship Specialty Start Date End Date Magdalena Acosta MD [address] [place] [address] PCP - General Family Medicine 02/05/23 documented as of this encounter
--- OUTSIDE RECORDS SUMMARY | 2024-02-15 14:05 | XMS_ITS | Encounter Summary ---
[place] [address] Care Team Providers Care Leaded Glass Installer Name Role Phone Magdalena Acosta MD Primary Care Provider [phone] Encounter Details Date Type Department Care Team (Latest Contact Info) Description 07/08/2023 12:35 PM EST Laboratory Appointment Lab [address] [place] [address] S/P TAVR (transcatheter aortic valve replacement); Severe aortic stenosis Social History Tobacco Use Types Packs/Day Years Used Date Smoking Tobacco: Never Smokeless Tobacco: Never Alcohol Use Standard Drinks/Week Comments No 0 (1 standard drink = 0.6 oz pur e alcohol) none DH IPV Inpatient Questions Answer Date Recorded Does Anyone Try to Keep You From Having Contact with Others or Doing Things Outside Your Home? no 05/08/2023 Feels Threatened by Someone no 10/0 01/2023 Feels Unsafe at Home or Work/School [...] 4:15 PM EDT Office Visit Dermatology at [place] [address] [facility] [place] [phone] Marek Bonilla MD [address] [facility] [place] [address] 06/05/2024 11:30 AM EST Office [place] [phone] Magdalena Peralta MD [facility] [place] [address] documented as of this encounter Procedures Procedure Name Priority Date/Time Associated Diagnosis Comments HEMOGRAM Routine 07/08/2023 11:56 AM EST S/P TAVR (transcatheter aortic valve replacement) DIFFERENTIAL, AUTOMATED Routine 07/08/2023 11:56 AM EST S/P TAVR (transcatheter aortic valve replacement) HC CBC,PLT & AUTO DIFF Routine 11:56 AM EST S/P TAVR (transcatheter aortic valve replacement) COMPREHENSIVE METABOLIC PANEL (NON-FASTING) Routine 07/08/2023 11:56 AM EST S/P TAVR (transcatheter aortic valve replacement) documented in this encounter Results * (ABNORMAL) Differential, Automated (07/08/2023 11:56 AM EST) Neutrophils % 73.2 % [facility] Neutr Abs (ANC) 3.40 1.70 - 6.10 x10(3)/mc L [facility] Lymphocytes % 16.1 % [facility] Lymphocytes Abs 0.8(L) 0.9 - 3.2 x10(3)/mc L [facility] Monocytes % 9.7 % [facility] Monocyte Abs 0.4 0.3 - 0.9 x10(3)/mc L [facility] Eosinophils % 0.4 % [facility] Eosinophils Abs 0.0 0.0 - 0.4 x10(3)/mc L [facility] Basophils % 0.4 % [facility] Basophils Abs 0.0 0.0 - 0.1 x10(3)/mc L [facility] Immature Gran % 0.20 % [facility] Comment: Immature granulocytes(IG's)percentage and absolute count will include metamyelocytes, myelocytes, and promyelocytes. Blood smears from CBCs yielding IG's will be scanned manually for concordance. If this scan disagrees with the automated IG or if promyelocytes are noted, a manual differential will be performed. Amanda Gran Abs 0.01 0.00 - 0.04 x10(3)/mc L [facility] Blood 07/08/2023 11:5 6 AM EST 07/08/2023 12:02 PM EST Narrative Resulting Agency Comment Spec In Lab Minh TOBAR HEMATOLOGY ORDERABLE S [facility] [place] [address] * (ABNORMAL) Hemogram (07/08/2023 11:56 AM EST) WBC 4.6 4.0 - 9.5 x10(3)/[facility] RBC 3.34(L) 4.00 - 5.21 x10(6)/[facility] Hemoglobin 11.0(L) 11.7 - 15.5 g/dL [facility] Hematocrit 33.2(L) 35.7 - 45.8 % [facility] MCV 99.4(H) 82.6 - 94.4 fL [facility] MCH 32.9(H) 27.1 - 32.0 pg [facility] MCHC 33.1 31.7 - 35.0 g/dL [facility] Platelets 166 145 - 357 x10(3)/[facility] RDWSD 47.1(H) 37.0 - 46.0 fL [facility] RDWCV 13.0 11.5 - 14.1 % [facility] MPV 9.0 7.6 - 12.9 [facility] nRBC % Auto 0.0 % [facility] nRBC Abs Auto 0.000 0.000 - 0.000 x10(3)/mcL [facility] Blood 07/08/2023 11:5 6 AM EST 07/08/2023 12:02 PM EST Narrative Resulting Agency Comment Spec In Lab Minh TOBAR HEMATOLOGY ORDERABLE S [facility] [place] [address] * (ABNORMAL) Comprehensive metabolic panel (non-fasting) (07/08/2023 11:56 AM EST) Glucose Lvl 93 65 - 199 mg/dL [facility] Comment:Diabetes: >=200 mg/d L plus symptoms BUN 19(H) 8 - 18 mg/dL [facility] Creatinine 0.81 0.70 - 1.20 mg/dL [facility] Sodium 142 135 - 145 mmol/L [facility] Potassium 3.8 3.5 - 5.0 mmol/L [facility] Comment: Please note: ??Patients with WBC >100,000 may have falsely elevated Potassium levels. ??For accurate Potassium quantification in these patients send serum separator tube (gold top) for subsequent determinations. ??Contact the Clinical Chemistry Laboratory if there are any questions. Chloride 104 98 - 107 mmol/L [facility] CO2 26 22 - 31 mmol/L [facility] Anion Gap 12 5 - 15 mmol/L [facility] Calcium 10.2 8.5 - 10.5 mg/dL [facility] Total Protein 7.4 6.1 - 8.0 g/dL [facility] Albumin 4.1 3.2 - 5.2 g/dL [facility] AST 24 0 - 30 unit/L [facility] ALT 12 0 - 30 unit/L [facility] Alk Phos 93 35 - 105 unit/L [facility] Total Bilirubin 0.3 0.2 - 1.3 mg/dL [facility] Estimated GFR 80 >=60 mL/min/1. 73 m?? [facility] Comment: This patient's estimated GFR was calculated using the 2020 CKD-EPI equation. The estimated GFR can vary from the measured GFR by up to 30% in the absence of rapidly changing kidney function. Assessment of the estimated GFR is not appropriate when creatinine concentrations are rapidly changing. For clinical situations in which a more precise estimate of GFR is necessary, consider alternative methods of GFR estimation such as a 24-hour urine creatinine clearance. Assignment of CKD stage 1-5 for patients with an eGFR near the transition point between stages may be based on clinical assessment of muscle mass and symptoms in addition to eGFR. Blood 07/08/2023 11:5 6 AM EST 07/08/2023 12:02 PM EST Narrative Resulting Agency Comment Spec In Lab Alirio Esparza MD CHEMISTRY ORDERABLE S Performing Organization Address City/State/[facility] Co de Phone Number [facility] [place] [address] documented in this encounter Visit Diagnoses Diagnosis S/P TAVR (transcatheter aortic valve replacement) Severe aortic stenosis Aortic valve disorders documented in this encounter Care Teams Leaded Glass Installer Relationship Specialty Start Date End Date Magdalena Acosta MD [address] [place] [address] PCP - General Family Medicine 02/05/23 documented as of this encounter
--- OUTSIDE RECORDS SUMMARY | 2024-02-15 14:05 | XMS_ITS | Encounter Summary ---
Author Organization [facility] Address [facility] [place] [address] Care Team Providers Care Hat Renovator Name Role Phone Magdalena Acosta MD Primary Care Provider [phone] Reason for Visit * Reason Comments Coronary Artery Disease Hypertension Aortic Stenosis Encounter Details Date Type Department Care Team (Latest Contact Info) Description 07/20/2023 4:40 PM EST TH Visit (TeleHealth) Cardiology at [address] [place] [address] Jay Maza PA [facility] [place] [address] HFrEF (heart failure with reduced ejection fraction); Hypertension, unspecified type; Aortic valve stenosis, etiology of cardiac valve disease unspecified Social History Tobacco Use Types Packs/Day Years Used Date Smoking Tobacco: Never Smokeless Tobacco: Never Alcohol Use Standard Drinks/Week Comments No 0 (1 standard drink = 0.6 oz pur e alcohol) none [facility] Inpatient Questions Answer Date Recorded Does [...] Progress Notes * Jay Maza PA - 07/20/2023 4:40 PM EST [facility] Interventional Cardiology CARDIOLOGY TELE VISIT NOTE 07/20/23 Patient: Purnima Thacker Chief Complaint: follow up, routine: post TAVR for severe aortic valve stenosis, review echo imaging Prior to the initiation of our discussion, the risks and benefits of tele health visits were discussed, and the patient consented verbally to this being a virtual telehealth visit in lieu of an in person office visit. Overedger: Antelmo Sharma MD ([facility] Cards) Maria Luz Mejia MD ([facility] cards) Problem List: : prior surgical AVR 2017 25mm, now s/p TAVR 23mm valve in valve HFrEF HTN Hyperlipidemia NICOLAS Obesity CAD: LM [...] fraction I35.0 Mild coronary artery disease by [facility] 11/09/2022 I25.10 Heart failure with reduced ejection fraction due to heart valve disease I50.20, I38 Cardiogenic shock R57.0 S/P TAVR (transcatheter aortic valve replacement) Z95.2 HPI: Purnima Thacker is a 67 y.o. year old female who is interviewed via telephone for follow up evaluation post TAVR implant. Her medical history is listed, and includes [...] Urgent valve in valve tavr was planned. The subsequent Alirio TAVR high risk case was notable for coronary artery protection given low fsmcn-zv-idttxfrj distance. There was no obstruction post Valve deployment, but the stent could not be removed safely, so it was deployed. 4.0 mm x 30mm in left main. She was loaded on brilinta aka ticagrelor. Immediately post valve deployment, chest compressions to circulate central epinephrine which was administered given her hypotension, low LVEF, and low cardiac reserve. Next, the patient was transferred to [facility] for pressor and inotropic support. Pressors weaned overnight. Cardiac indices by thermodilution remained greater than 3 with continued Milrinone 0.125 mcg/kg/min. EKG the next day with NSR with stable WA/QRS intervals. Hemoglobin 7.8 today from 8.5, likely dilutional s/p gentle volume resuscitation overnight. Cr continues to rise in the setting of pre-TAVR cardiogenic shock, TAVR CTA contrast load, and complex TAVR case (Cr 1.86--> 2.01--> 3.15). Transaminitis now down-trending She has done well since discharge. She has recovered well from hospitalization. She is doing cardiac rehab. She has no chest pain, pressure or palpitations. Her breathing is improved. Her leg has healed with no evidence of bleeding, hematoma, infections or other problems at access sites. She is concerned her LVEF has remained low. 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 Successful right transfemoral TAVR Sciac-rv-Nojwf with a 23 mm Lai 3 THV. We selected a 23 mm S3U valve instead of a 26 mm sizing due to the borderline VTC distance for both the right and left coronary arteries. We performed left coronary 'protection' for the TAVR for the aforementioned reason, and ultimately deployed a prepositioned stent from left main to LAD using a 4.0 x 30 mm Resolute MINNA. While there was no coronary occlusion post TAVR, the prepositioned stent could not be safely pulled into the guide post valve deployment and was therefore deployed. Completion angiography demonstrated a satisfactory result with ARNEL-3 flow and no residual obstruction. Brief ROS: Activity level: improving. No new orthopnea, PND, LE edema. No lightheadedness, dizziness, syncope/pre- syncope. No new CP. Medications: Current Outpatient Medications Medication Sig Dispense Refill clopidogreL (Plavix) 75 mg tablet Take 1 tablet by mouth daily. she can take ticagrelor, then the next morning, stop ticagrelor, instead take clopidogrel 300mg once, then after that 75mg once daily. (Patient not taking: Reported on 07/08/2023) furosemide (Lasix) 20 mg tablet Take 1 [...] TRIG 254 (EXTERNAL/ABN) 02/28/2020 LDLCHOL 79 02/28/2020 DIAGNOSTIC INFORMATION: ECHO TTE 07/08/2023 Interpretation Summary Left ventricular [...] leads Confirmed by MD Harshil, Haris Bell ([id number]) on 05/10/2023 8:11:46 AM Cardiac Cath 11/09/2022 [...] performed. Conclusions: * Nonobstructive coronary artery disease Assessment: 67 year old female interviewed via telephone for follow up of her aortic valve stenosis. She has been recovering well from a complex high risk procedure. CV issues are currently stable. Severe aortic valve disease with prior 25mm surgical valve treated with valve in valve tavr for bioprosthetic failure, newly depressed LVEF to 20%, and acute decompensated heart failure. She has recovered well. Continue medications as planned (will transition from ticagrelor to clopidogrel) Follow up with cards Dr Mejia in 3-5 weeks for routine follow up. Repeat echo in 4 months to look at LVEF recovery, bioprostheses. We will reinitiate low dose spironolactone, which she was on previously, given heart failure and reduced LVEF. Would consider lisinopril. Needs ecg. Follow up with outpatient cards in 4 months with echo. EKATERINA Thompson Time spent: Total of 30 minutes spent in chart review and direct patient contact. [id number] 0-5min [id number] 6-10min [id number] 11-15min [id number] 16-20min x [id number] 21-30min [id number] 31-40min [id number] 40+ min Jay Maza PA-C Interventional Cardiology [facility] Pager [phone] documented in this encounter Plan of Treatment Upcoming Encounters Date Type Department Care Team (Late st Contact Info) Description 02/22/2024 4:15 PM EDT Office Visit Dermatology at [place] [address] [place] [address] Marek Bonilla MD [address] [place] [address] 06/05/2024 11:30 AM EST Office [place] [address] Magdalena Peralta MD [facility] [place] [address] documented as of this encounter Visit Diagnoses Diagnosis HFrEF (heart failure with reduced ejection fraction) Hypertension, unspecified type Aortic valve stenosis, etiology of cardiac valve disease unspecified documented in this encounter Care Teams Hat Renovator Relationship Specialty Start Date End Date Magdalena Acosta MD [address] [place] [address] PCP - General Family Medicine 02/05/23 documented as of this encounter
--- OUTSIDE RECORDS SUMMARY | 2024-02-15 14:05 | XMS_ITS | Encounter Summary ---
Author Organization [facility] Address [address] [place] [address] Care Team Providers Care Plastics Worker Name Role Phone Ashley Chavez Primary Care Provider [phone] Encounter Details Date Type Department Care Team (Late st Contact Info) Description 04/29/2022 Lab Requisition [facility] Pathology & Laboratory Medicine - [address] [address] Outr Resulting Lab, Provider Social History Tobacco [...] Procedure Name Priority Date/Time Associated Diagnosis Comments SS-B (LA) ANTIBODY, IGG Routine 04/29/2022 7:51 EDT ZZHN SSA ANTIBODIES BY DOMO Routine 04/29/2022 7:51 EDT documented in this encounter Results * SSB ANTIBODIES BY DOMO (04/29/2022 7:51 EDT) SSB Antibody 1.6 <20.0 Units 04/30/2022 12:23 EDT [facility] Comment: ? Negative: <20.0 Units ? Weak Positive: 20.0 - 39.9 Units ? Moderate Positive: 40.0 - 80.0 Units ? Strong Positive: >80.0 Units Results were obtained with the [employer]OVA QUANTA Lite SS-B DOMO. ??SS-B values obtained with different manufacturers' assay methods may not be used interchangeably. ??The magnitude of the reported IgG levels cannot be correlated to an endpoint titer. Blood VENOUS BLOOD / Unknown 04/29/2022 7:51 EDT 04/29/2022 16:42 EDT Provider Outr Resulting Lab IMMUNOLOGY A ND SEROLOGY ORDERABLES Performing Organization Address [facility] de Phone Number [facility] [address] [place] [address] * SSA ANTIBODIES BY DOMO (04/29/2022 7:51 EDT) SSA Antibody 1.5 <20.0 Units 04/30/2022 12:22 EDT [facility] Comment: ? Negative: <20.0 Units ? Weak Positive: 20.0 - 39.9 Units ? Moderate Positive: 40.0 - 80.0 Units ? Strong Positive: >80.0 Units Results were obtained with the INOVA QUANTA Lite SS-A DOMO. ??SS-A values obtained with different manufacturers' assay methods may not be used interchangeably. ??The magnitude of the reported IgG levels cannot be correlated to an endpoint titer. Blood VENOUS BLOOD / Unknown 04/29/2022 7:51 EDT 04/29/2022 16:42 EDT Provider Outr Resulting Lab IMMUNOLOGY A ND SEROLOGY ORDERABLES Performing Organization Address [facility] de Phone Number [facility] [address] [place] [address] documented in this encounter Visit Diagnoses Not on filedocumented in this encounter Care Teams Plastics Worker Relationship Specialty Start Date End Date Ashley Chavez ARNP [address] [place] [address] PCP - General 07/11/10 documented as of this encounter
--- OUTSIDE RECORDS SUMMARY | 2024-02-15 14:05 | XMS_ITS | Encounter Summary ---
Author Organization [facility] Address [address] [place] [address] Care Team Providers Care Pipelines Laborer Name Role Phone Scott Ashley WILLIAM Primary Care Provider [phone] Encounter Details Date Type Department Care Team (Late st Contact Info) Description 11/10/2013 Results Only [facility] [phone] Jeni Laird, SCHEDULING SPECIALIST [address] [place], [place] [id number] Social History Tobacco Use Types Packs/Day Years Used Date Smoking Tobacco: Never Assessed Sex and Gender Information Value Date Recorded Sex Assigned at Not on file Gender Identity Not on file Sexual Orientation Not on file documented as of this encounter Plan of Treatment Not on file documented as of this encounter Procedures Procedure Name Priority Date/Time Associated Diagnosis Comments PAP TEST- RESULT ONLY Routine 11/10/2013 0:00 EDT documented in this encounter Results * PAP TEST- RESULT ONLY (11/10/2013 0:00 EDT) Pathology Report: CYTOPATHOLOGY REPORT Reports generated via electronic interface contain original data; however they are lacking the format of the original report. Caution should be taken when reading/interpreti ng unformatted reports. Name: ? 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 Accession #: ? [id number] : ? 1955 (Age: 58) ??F ?Collect Date: ? 11/10/2013 Location: ? [facility] ? Receive Date: ? 11/14/2013 Provider: ?JENI LAIRD SCHEDULING SPECIALIST Copy to: ? Specimen/Source: ?Pap Test, Endocervix, ThinPrep Imaging System with manual evaluation Last Menstrual Period: ? 03/2007 Other: ? Additional clinical information: normal paps 2006 & 2009, h/o abn paps per pt unable to confirm ? SPECIMEN ADEQUACY ? Satisfactory for Evaluation - transformation zone component present GENERAL CATEGORIZATION ? Negative for Intraepithelial Lesion or Malignancy ? Document reviewed and electronically signed by: ? PRETTY Carrizales(ASCP) ? Report Date: ??11/20/2013 11:42 End of Report PAUL ARELLANO 11/10/2013 11/14/2013 Jeni Laird SCHEDULING SPECIALIST PATHOLOGY ORDERAB LES Performing Organization Address City/State/[facility] Co de Phone Number PAUL ARELLANO [address] [place] [address] documented in this encounter Visit Diagnoses Not on filedocumented in this encounter Care Teams Pipelines Laborer Relationship Specialty Start Date End Date Ashley Chavez ARNP [address] [place] [address] PCP - General 07/11/10 documented as of this encounter
--- OUTSIDE RECORDS SUMMARY | 2024-02-15 14:05 | XMS_ITS | Clinical Summary ---
Author Organization [facility] Address [facility] [place] [address] Care Team Providers Care Revenue Inspector Name Role Phone Magdalena Acosta MD Primary Care Provider [phone] Allergies No known active allergies Medications Medication Sig Dispensed Refills Start Date End Date Status aspirin 81 mg EC tablet Take 81 mg by mouth daily. Active multivitamin (THERAGRAN) Tablet Take 1 tablet by mouth daily. Active atorvastatin (LIPITOR) 10 mg Tablet Take 10 mg by mouth daily. Active acetaminophen (TYLENOL) 500 mg Tablet Take 2 tablets by mouth every 6 hours as needed for Pain (Please take up to 1,000 mg every 6 hours when experiencing pain .). 30 tablet 5 09/25/2016 Active amoxicillin (AMOXIL) 500 mg Tablet Take 2,000 mg by mouth once as needed. Before dental Active OneTouch Verio test strips Strip USE DAILY 01/03/2022 Active OneTouch Delica Plus Lancet 33 gauge Misc USE DAILY 01/03/2022 Active nystatin (MYCOSTATIN) 100,000 unit/gram Powder Apply topically 2 times daily as needed. 10/22/2022 Active cyanocobalamin, Vitamin B-12, (Vitamin B-12) 1,000 mcg tablet Take 500 mcg by mouth daily. Active hydrOXYchloroQUINE (Plaquenil) 200 mg tablet Take 1 tablet by mouth daily. 90 tablet 12 03/18/2023 Active furosemide (Lasix) 20 mg tablet Take 1 tablet by mouth daily. 90 tablet 3 05/23/2023 Active Additional Information Patient not taking.Reported on 12/02/2023 metoproloL tartrate (Lopressor) 25 mg tablet Take 1 tablet by mouth 2 times daily. 60 tablet 3 05/22/2023 Active Additional Information Patient not taking.Reported on 12/02/2023 spironolactone (Aldactone) 25 mg tabletIndications:H FrEF (heart failure with reduced ejection fraction),Hypertens ion, unspecified type Take 0.5 tablets by mouth daily. 07/20/2023 Active clopidogreL (Plavix) 75 mg tabletIndications:A ortic valve stenosis, etiology of cardiac valve disease unspecified Take 1 tablet by mouth daily. she can take ticagrelor, then the next morning, stop ticagrelor, instead take clopidogrel 300mg once, then after that 75mg once daily. 90 tablet 3 07/20/2023 Active Additional Information Patient taking differently:75 mg Oral DAILY,(No instructions reported), Reported on 12/02/2023 diclofenac (Voltaren) 1 % Gel Apply topically 4 times daily as needed. 150 g 3 07/29/2023 Active Additional Information Patient not taking.Reported on 12/02/2023 losartan (Cozaar) 25 mg tablet Take 25 mg by mouth daily. 09/07/2023 Active metoprolol succinate XL (Toprol-XL) 50 mg ER 24 hr tablet Take 50 mg by mouth daily. 09/07/2023 Active cyanocobalamin, vitamin B-12, (Vitamin B-12) 500 mcg tablet Take 500 mcg by mouth daily. 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) 10/14/2016 Aortic stenosis 09/21/2016 Chronic idiopathic neutropenia 07/17/2016 NICOLAS (obstructive sleep apnea) 05/28/2014 Depressive disorder 06/28/2013 Essential tremor 06/28/2013 Obesity 06/28/2013 Essential hypertension 2012 Encounters Date Type Department Care Team Description 12/16/2023 Orders Only Cardiology at [address] [address] Antelmo Sharma MD S/P TAVR (transcatheter aortic valve replacement) 12/02/2023 11:15 AM EDT Office Visit Rheumatology at [place] [phone] Magdalena Peralta MD Mixed connective tissue disease 12/01/2023 Travel 11/16/2023 11:40 AM EDT TH Visit (TeleHealth) Cardiology at [address] [address] Jay Maza PA Aortic valve stenosis, etiology of cardiac valve disease unspecified; Coronary artery disease, unspecified vessel or lesion type, unspecified whether angina present, unspecified whether [place] or transplanted heart from Last 3 Months Immunizations Name Administration Dates Next Due Influenza Quadrivalent (FluAd) Adjuvanted 2022 Influenza Unspecified Formulation 05/18/2016 Social History Tobacco Use Types Packs/Day Years Used Date Smoking Tobacco: Never Smokeless Tobacco: Never Tobacco Cessation:Counseling Given: Not Answered Alcohol Use Standard Drinks/Week Comments No 0 (1 standard drink = 0.6 oz pur e alcohol) none [facility] Inpatient Questions Answer Date Recorded Does Anyone [...] on file Sexual Orientation Not on file Last Filed Vital Signs Vital Sign Reading Time Taken Comments Blood Pressure 126/55 12/02/2023 11:15 AM EDT Pulse 65 12/02/2023 11:15 AM EDT Temperature 36.2 ??C (97.2 ??F) 12/02/2023 11:15 AM E DT Respiratory Rate 12 12/02/2023 11:15 AM EDT Oxygen Saturation 100% 12/02/2023 11:15 AM EDT Inhaled Oxygen Concentration - - Weight 79.2 kg (174 lb 7.9 oz) 12/02/2023 11:15 AM EDT w/shoes Height 154.9 cm (5' 1) 07/08/2023 10:15 AM EST Body Mass Index 32.97 07/08/2023 10:15 AM EST Plan of Treatment Upcoming Encounters Date Type Department Care Team (Late st Contact Info) Description 02/22/2024 4:15 PM EDT Office Visit Dermatology at [place] [address] [place] [address] Marek Bonilla MD [address] [place] [address] 06/05/2024 11:30 AM EST [place] [address] Magdalena Peralta MD [address] [place] [address] Health Maintenance Due Date Last Done Comments CT Colonography 1955 Colonoscopy 1955 Colorectal Cancer Screening 1955 FIT DNA 1955 FIT 1955 Sigmoidoscopy (10 year) with FIT yearly 1955 Sigmoidoscopy 1955 Pneumoccocal Vaccine: 65+ (1 of 2 - PCV) 1961 Hepatitis C Screening 1973 Tdap adult 1974 Tetanus vaccine 1974 Zoster vaccine (1 of 2) 1974 Breast Cancer Share Decision Needed 1995 Advance Directive 2010 Covid-19 Vaccine ( - 2022-2 4 season) 2023 Breast Cancer screening 06/05/2023 06/05/2021, 06/05 Influenza (Flu) vaccine (1 o f 1 - Influenza standard series) 04/02/2024 05/22/2023, 05/18/2016 Diabetes Screening (HgbA1C o r Glucose) 07/08/2026 07/08/2023, 05/22/2023, 05/21/2023, Additional history exists Bone Density Scan 06/05/2036 06/05/2021 Medical Devices Implanted Type Area Remote Sensing Program Manager Device Identifier Shelf Expiration Date Model / Serial / Lot Valve,Aor,Pericar d,Magna,25mm ([id number]) - [id number] Implanted:Qty: 1 on 09/21/2016 by Alirio Esparza MD at [facility] IMPLANTS N/A: Heart DO NOT USE [employer] - [id number] 06/02/2020 [id number] / / [id number] Cable,Blnt,Ss,38i n ([id number]) - [id number] Implanted:Qty: 4 on 09/21/2016 by Alirio Esparza MD at [facility] IMPLANTS N/A: Chest [employer] - [id number] 04/29/2021 [id number] / / [id number] Patch,Cav,Pericar d,2x5cm ([id number]) (Autoreq) - [id number] Implanted:Qty: 1 on 09/21/2016 by Alirio Esparza MD at [facility] IMPLANTS N/A: Heart DO NOT USE [employer] - [id number] 04/21/2018 [id number] / / [id number] Tavr-05/12/2023 Implanted:Qty: 1 on 05/12/2023 by Antelmo Sharma MD Other Heart [employer] - JAIME LI [id number] / [id number] / Description:JAIME LIFESCIE NCES ABBY 3 ULTRA RESILIA TRANSCATHETER HEART VALVE Procedures Procedure Name Priority Date/Time Associated Diagnosis Comments COMPREHENSIVE METABOLIC PANEL (NON-FASTING) Routine 07/08/2023 11:56 AM EST S/P TAVR (transcatheter aortic valve replacement) DXA CENTRAL SPINE, HIP, AND/OR WHOLE BODY (GENERIC) Routine 06/05/2021 11:58 AM EDT MAMMO SCREENING CAD BILATERAL Routine 06/05/2021 11:42 AM EDT from Last 3 Months or Most Recently Relevant to Health Maintenance Results * (ABNORMAL) Comprehensive metabolic panel (non-fasting) (07/08/2023 11:56 AM EST) Glucose Lvl 93 65 - 199 mg/dL [facility] Comment:Diabetes: >=200 mg/d L plus symptoms BUN 19(H) 8 - 18 mg/dL [facility] Creatinine 0.81 0.70 - 1.20 mg/dL [facility] Sodium 142 135 - 145 mmol/L [facility] Potassium 3.8 3.5 - 5.0 mmol/L [facility] Comment: Please note: ??Patients with WBC >100,000 may have falsely elevated Potassium levels. ??For accurate Potassium quantification in these patients send serum separator tube (gold top) for subsequent determinations. ??Contact the Clinical Chemistry Laboratory if there are any questions. Chloride 104 98 - 107 mmol/L [facility] CO2 26 22 - 31 mmol/L [facility] Anion Gap 12 5 - 15 mmol/L [facility] Calcium 10.2 8.5 - 10.5 mg/dL [facility] Total Protein 7.4 6.1 - 8.0 g/dL [facility] Albumin 4.1 3.2 - 5.2 g/dL [facility] AST 24 0 - 30 unit/L [facility] ALT 12 0 - 30 unit/L [facility] Alk Phos 93 35 - 105 unit/L [facility] Total Bilirubin 0.3 0.2 - 1.3 mg/dL [facility] Estimated GFR 80 >=60 mL/min/1. 73 m?? [facility] Comment: This patient's estimated GFR was [...] Lab Alirio Esparza MD CHEMISTRY ORDERABLE S [facility] [place] [address] * DXA Central Spine, Hip, and/or Whole Body (Generic) (06/05/2021 11:58 AM EDT) PT CLASS O RAD ADMITDTTM RAD PT RAD INFO [id number]^E VERETT^DEBORAH ^E RAD EXAM DESC XDXAC^DEXA SCAN AXIAL^RIS RAD Anatomical Region Laterality Modality C-spine, Hip N/A Radiographic Eunice ging Impressions 06/05/2021 12:00 PM EDT Normal. FRAX ten-year fracture risk: Major osteoporotic fracture: 6.3%. Hip fracture: 0.3%. Thank you for letting us participate in the care of this patient. ??If you are a health care provider and have any questions regarding this report, please contact the number below. ??For patients who have questions please contact the health childcare center administrator that requested your imaging first. ? Narrative 06/05/2021 12:00 PM EDT EXAMINATION: DEXA SCAN AXIAL CLINICAL HISTORY: Screening for osteoporosis postmenopausal. TECHNIQUE: Scans were acquired at the lumbar spine, left hip. COMPARISON: None. FINDINGS: Lowest T score at a diagnostic region of interest: T score: -0.6, ALYSA:Femoral neck, WHO diagnosis: Normal Procedure Note Rocael Villatoro MD - 06/05/2021 EXAMINATION: DEXA SCAN AXIAL CLINICAL HISTORY: Screening for osteoporosis postmenopausal. TECHNIQUE: Scans were acquired at the lumbar spine, left hip. COMPARISON: None. FINDINGS: Lowest T score at a diagnostic region of interest: T score: -0.6, ALYSA:Femoral neck, WHO diagnosis: Normal IMPRESSION Normal. FRAX ten-year fracture risk: Major osteoporotic fracture: 6.3%. Hip fracture: 0.3%. Thank you for letting us participate in the care of this patient. If youare a health care provider and have any questions regarding this report,please contact the number below. For patients who have questions please contactthe health childcare center administrator that requested your imaging first. Electronically signed by: Rocael Villatoro MD, [facility]([phone]), at 06/05/2021 12:[address] ROLLER ENGINEER IMG DEXA ORDERABLES * Mammo Screening Cad Bilateral (06/05/2021 11:42 AM EDT) PT CLASS O RAD ADMITDTTM RAD PT RAD INFO [id number]^EV ERETT^DEBORAH^E RAD EXAM DESC MADDSC^SCREEN MAMMO BL INCLUDES CAD^RIS RAD Anatomical Region Laterality Modality Breast Bilateral Mammography Impressions 06/05/2021 1:27 PM EDT BI-RADS ??category 1: negative- No mammographic evidence of malignancy. RECOMMENDATION: * ??Regular screening mammograms starting between age 40 and 50 reduces the risk of from breast cancer. * ??All screening tests have both risks and benefits. These risks and benefits should be assessed for each individual patient through discussion with their provider to determine their preferred breast cancer screening schedule. * ??Women should report any breast changes to a health care provider right away. * ??Some women, because of their family history, a genetic tendency, or other factors, should be screened with annual breast MRI as well as with mammograms. (The number of women who fall into this category is very small). Patients and health care providers should discuss the history of each patient to decide if earlier screening and/or breast MRI are appropriate. * ??Screening should continue as long as a woman is in good health and is expected to live 10 years or longer. * ??Screening mammography may not detect 10-15% of breast cancers. Thank you for letting us participate in the care of this patient. ??If you are a health care provider and have any questions regarding this report, please contact the number below. ??For patients who have questions please contact the health childcare center administrator that requested your imaging first. ? Electronically signed by: Rocael Villatoro MD, [facility] ([phone]), at 06/05/2021 1:27 PM Narrative 06/05/2021 1:27 PM EDT EXAMINATION: BREAST SCREEN TOMOSYNTHESIS BI, SCREEN MAMMO BL INCLUDES CAD CLINICAL HISTORY: Screening mammogram for malignant neoplasm of breast Family history of breast cancer: Maternal aunt Reproductive history: Nulliparous No personal history of breast cancer. COMPARISON: Previous mammograms were reviewed. TECHNIQUE: ??Bilateral MLO and CC digital mammograms were obtained and reviewed with CAD. ?? 2-D and 3-D tomosynthesis images were obtained. FINDINGS: There are no suspicious microcalcifications, masses, or areas of distortion. No changes compared to prior studies. Breast density: The breasts are almost entirely fatty. Procedure Note Rocael Villatoro MD - 06/05/2021 EXAMINATION: BREAST SCREEN TOMOSYNTHESIS BI, SCREEN MAMMO BL INCLUDESCAD CLINICAL HISTORY: Screening mammogram for malignant neoplasm of breast Family history of breast cancer: Maternal aunt Reproductive history: Nulliparous No personal history of breast cancer. COMPARISON: Previous mammograms were reviewed. TECHNIQUE: Bilateral MLO and CC digital mammograms were obtained andreviewed with CAD. 2-D and 3-D tomosynthesis images were obtained. FINDINGS: There are no suspicious microcalcifications, masses, or areasof distortion. No changes compared to prior studies. Breast density: The breasts are almost entirely fatty. IMPRESSION BI-RADS category 1: negative- No mammographic evidence of malignancy. RECOMMENDATION: * Regular screening mammograms starting between age 40 and 50 reduces therisk of from breast cancer. * All screening tests have both risks and benefits. These risks andbenefits should be assessed for each individual patient through discussion withtheir provider to determine their preferred breast cancer screening schedule. * Women should report any breast changes to a health care provider rightaway. * Some women, because of their family history, a genetic tendency, orother factors, should be screened with annual breast MRI as well as withmammograms. (The number of women who fall into this category is very small). Patientsand health care providers should discuss the history of each patient to decideif earlier screening and/or breast MRI are appropriate. * Screening should continue as long as a woman is in good health and is expected to live 10 years or longer. * Screening mammography may not detect 10-15% of breast cancers. Thank you for letting us participate in the care of this patient. If youare a health care provider and have any questions regarding this report,please contact the number below. For patients who have questions please contactthe health childcare center administrator that requested your imaging first. Deborah Quiroga APRN IMGerman MAMMO ORDERABLE S from Last 3 Months or Most Recently Relevant to Health Maintenance Advance Directives * Attempt Cardiopulmonary Resuscitation - Inpatient (Latest Code Status on File) Date Activated Date Inactivated Comments 05/18/2023 3:45 PM 05/22/2023 12:51 PM Question Answer Comments Code Status decision made by: Patient * Attempt Cardiopulmonary Resuscitation - Inpatient Date Activated Date Inactivated Comments 05/08/2023 11:11 AM 05/18/2023 3:45 PM Question Answer Comments Code Status decision made by: Patient * Attempt Cardiopulmonary Resuscitation - Inpatient Date Activated Date Inactivated Comments 11/09/2022 11:45 AM 11/09/2022 6:53 PM Question Answer Comments Code Status decision made by: Patient * Full Code Date Activated Date Inactivated Comments 09/21/2016 11:58 AM 09/25/2016 6:34 PM Question Answer Comments Does patient have capacity to make decision: Yes * Full Code Date Activated Date Inactivated Comments 09/21/2016 7:11 AM 09/21/2016 11:58 AM Question Answer Comments Does patient have capacity to make decision: Yes Care Teams Revenue Inspector Relationship Specialty Start Date End Date Magdalena Acosta MD [address] [place] [address] PCP - General Family Medicine 02/05/23
--- OUTSIDE RECORDS SUMMARY | 2024-02-15 14:05 | XMS_ITS | Encounter Summary ---
Author Organization [facility] [place] [address] Care Team Providers Care Trial Judge Name Role Phone Magdalena Acosta MD Primary Care Provider [phone] Encounter Details Date Type Department Care Team (Late st Contact Info) Description 07/08/2023 10:15 AM EST Office Visit Cardiology at [address] [phone] Severe aortic stenosis Social History Tobacco Use Types Packs/Day Years Used Date Smoking Tobacco: Never Smokeless Tobacco: Never Alcohol Use Standard Drinks/Week Comments No 0 (1 standard drink = 0.6 oz pur e alcohol) none [facility] Inpatient Questions Answer Date Recorded Does Anyone [...] on file documented as of this encounter Last Filed Vital Signs Vital Sign Reading Time Taken Comments Blood Pressure 118/60 07/08/2023 10:15 AM EST Pulse 71 07/08/2023 10:15 AM EST Temperature - - Respiratory Rate - - Oxygen Saturation 100% 07/08/2023 10:15 AM EST Inhaled Oxygen Concentration - - Weight 73.9 kg (163 lb) 07/08/2023 10:15 AM EST Height 154.9 cm (5' 1) 07/08/2023 10:15 AM EST Body Mass Index 30.8 07/08/2023 10:15 AM EST documented in this encounter Plan of Treatment Upcoming Encounters Date Type Department Care Team (Late st Contact Info) Description 02/22/2024 4:15 PM EDT Office Visit Dermatology at [place] [address] [place] [address] Marek Bonilla MD [address] [place] [address] 06/05/2024 11:30 AM EST Office [place] [address] Magdalena Peralta MD [address] [place] [address] documented as of this encounter Procedures Procedure Name Priority Date/Time Associated Diagnosis Comments EKG 12-LEAD Routine 07/08/2023 10:27 AM EST documented in this encounter Results * EKG 12 Lead (07/08/2023 10:27 AM EST) Ventricular rate 71 BPM MUSE SYSTEM Atrial Rate 71 BPM MUSE SYSTEM P-R Interval 170 ms MUSE SYSTEM QRS Duration 100 ms MUSE SYSTEM Q-T Interval 414 ms MUSE SYSTEM QTC Calculated (Bezet) 449 ms MUSE SYSTEM Calculated P Cushing 66 degrees MUSE SYSTEM Calculated R Cushing 60 degrees MUSE SYSTEM Calculated T Cushing 53 degrees MUSE SYSTEM INTERPRETATION Normal sinus rhythm Minimal voltage criteria for LVH, may be normal variant ( Sokolow-Orozco ) ST & T wave abnormality, consider lateral ischemia ??vs. repolarization abnormality from LVH Abnormal ECG When compared with ECG of 13-MAY-2023 09:22, Premature ventricular complexes are no longer Present Minimal criteria for Septal infarct are no longer Present Confirmed by Maxx Best ([id number]) on 07/09/2023 10:07:22 AM MUSE SYSTEM 07/08/2023 10:2 7 AM EST 07/09/2023 10:07 AM EST Brody Kaplan APRN ECG ORDERABLES [employer] documented in this encounter Visit Diagnoses Diagnosis Severe aortic stenosis Aortic valve disorders documented in this encounter Care Teams Trial Judge Relationship Specialty Start Date End Date Magdalena Acosta MD [address] [place] [address] PCP - General Family Medicine 02/05/23 documented as of this encounter
--- OUTSIDE RECORDS SUMMARY | 2024-02-15 14:05 | XMS_ITS | Encounter Summary ---
Author Organization [facility] Address [address] [place] [address] Care Team Providers Care Barrel Assembly Inspector Name Role Phone Unavailable Primary Care Provider Unavailabl e Encounter Details Date Type Department Care Team (Late st Contact Info) Description 07/08/2010 Results Only [facility] Non-Invasive Cardiology - [facility] [address] [place] [address] Ashley Chavez, WILLIAM [address] [place] [address] Social History Tobacco Use Types Packs/Day Years Used Date Smoking Tobacco: Never Assessed Sex and Gender Information Value Date Recorded Sex Assigned at Not on file Gender Identity Not on file Sexual Orientation Not on file documented as of this encounter Plan of Treatment Not on file documented as of this encounter Procedures Procedure Name Priority Date/Time Associated Diagnosis Comments CYTOPATHOLOGY Routine 07/08/2010 0:00 EST documented in this encounter Results * CYTOPATHOLOGY (07/08/2010 0:00 EST) Pathology Report: CYTOPATHOLOGY REPORT ? Reports generated via electronic interface contain original data; ? however they are lacking the format of the original report. ? Caution should be taken when reading/interpreti ng unformatted reports. ? Name: ? 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 Accession #: ? [id number] ? : ? 1955 (Age: 54) ??F ?Collect Date: ? 07/08/2010 ? Location: ? [facility] ? Receive Date: ? 07/10/2010 ? Provider: ?ASHLEY THOMAS ? Copy to: ? Specimen/Source: ?Pap Test, Endocervix, ThinPrep Imaging System with ? manual evaluation ? Last Menstrual Period: ? 11/8/10 ? Other: ? Additional clinical information: A0 ? SPECIMEN ADEQUACY ? Satisfactory for Evaluation ? - transformation zone component present ? GENERAL CATEGORIZATION ? Negative for Intraepithelial Lesion or Malignancy ? Document reviewed and electronically signed by: ? Karen Verville,CT(ASCP) ? Report Date: ??07/15/2010 14:04 ? End of Report ? PAUL ARELLANO 07/08/2010 07/10/2010 Ashley THOMAS PATHOLOGY ORDERABLES PAUL ARELLANO [address] [place] [address] documented in this encounter Visit Diagnoses Not on filedocumented in this encounter
--- OUTSIDE RECORDS SUMMARY | 2024-02-15 14:05 | XMS_ITS | Encounter Summary ---
Author Organization [facility] Address [address] [place] [address] Care Team Providers Care Hoop Bender Tank Name Role Phone Unavailable Primary Care Provider Unavailabl e Encounter Details Date Type Department Care Team (Late st Contact Info) Description 03/24/2007 Results Only [facility] Non-Invasive Cardiology - [facility] [address], [place] [address] Ashley Chavez ARNP [address] [place] [address] Social History Tobacco Use Types Packs/Day Years Used Date Smoking Tobacco: Never Assessed Sex and Gender Information Value Date Recorded Sex Assigned at Not on file Gender Identity Not on file Sexual Orientation Not on file documented as of this encounter Plan of Treatment Not on file documented as of this encounter Procedures Procedure Name Priority Date/Time Associated Diagnosis Comments CYTOPATHOLOGY Routine 03/24/2007 0:00 EDT documented in this encounter Results * CYTOPATHOLOGY (03/24/2007 0:00 EDT) Pathology Report: CYTOPATHOLOGY REPORT Reports generated via electronic interface contain original data; however they are lacking the format of the original report. Caution should be taken when reading/interpreti ng unformatted reports. Name: ? 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 Accession #: ? [id number] : ? 1955 (Age: 51) ??F ?Collect Date: ? 03/24/2007 Location: ? [facility] ? Receive Date: ? 03/28/2007 Provider: ?ASHLEY THOMAS Copy to: ? Specimen/Source: ?ThinPrep Pap Test, [employer], processed on [employer] ThinPrep Imaging System, with manual evaluation Last Menstrual Period: ? 03/07/07 Other: ? HPVA - HPV testing requested if ASC-US on the current ThinPrep Pap test. ? SPECIMEN ADEQUACY ? Satisfactory for Evaluation - transformation zone component absent GENERAL CATEGORIZATION ? Negative for Intraepithelial Lesion or Malignancy ? Document reviewed and electronically signed by: ? AMBER Loza(ASCP) ? Report Date: ??03/31/2007 10:08 End of Report PAUL ARELLANO 03/24/2007 03/28/2007 Ashley THOMAS PATHOLOGY ORDERABLES PAUL ARELLANO [address] [place] [address] documented in this encounter Visit Diagnoses Not on filedocumented in this encounter
--- OUTSIDE RECORDS SUMMARY | 2024-02-15 14:05 | XMS_ITS | Encounter Summary ---
Author Organization [facility] [place] [address] Care Team Providers Care Classified Ad Clerk Name Role Phone Magdalena Acosta MD Primary Care Provider [phone] Encounter Details Date Type Department Care Team (Latest Contact Info) Description 07/29/2023 Travel Social History Tobacco Use Types Packs/Day Years Used Date Smoking Tobacco: Never Smokeless Tobacco: Never Alcohol Use Standard Drinks/Week Comments No 0 (1 standard drink = 0.6 oz pur e alcohol) none [facility] Inpatient Questions Answer Date Recorded Does Anyone [...] 4:15 PM EDT Office Visit Dermatology at [address] [facility] [place] [id number] Marek Bonilla MD [address] [facility] [place] [address] 06/05/2024 11:30 AM EST Office [place] [address] Magdalena Peralta MD [facility] [place] [address] documented as of this encounter Visit Diagnoses Not on filedocumented in this encounter Care Teams Classified Ad Clerk Relationship Specialty Start Date End Date Magdalena Acosta MD [address] [place] [address] PCP - General Family Medicine 02/05/23 documented as of this encounter
--- OUTSIDE RECORDS SUMMARY | 2024-02-15 14:05 | XMS_ITS | Encounter Summary ---
Author Organization [facility] [place] [address] Care Team Providers Care Reinstatement Clerk Name Role Phone Magdalena Acosta MD Primary Care Provider [phone] Reason for Referral * Diagnostic Test (Routine) - Closed Specialty Diagnoses / Procedures Referred By Contac t Referred To Contact Cardiology Diagnoses S/P TAVR (transcatheter aortic valve replacement) Procedures Echocardiogram Transthoracic Vinod Juárez PA [facility] [place] [address] [facility] [place] [address] Referral ID Status Reason Start Date Expiration Date V isits Requested Visits Authorized [id number] Closed Specialty Service Requested 05/22/2023 05/21/2024 1 1 Reason for Visit * Diagnostic Test (Routine) - Closed Specialty Diagnoses / Procedures Referred By Contac t Referred To Contact Cardiology Diagnoses S/P TAVR (transcatheter aortic valve replacement) Procedures Echocardiogram Transthoracic Vinod Juárez PA [facility] [place] [address] [facility] [place] [address] Referral ID Status Reason Start Date Expiration Date V isits Requested Visits Authorized [id number] Closed Specialty Service Requested 05/22/2023 05/21/2024 1 1 Encounter Details Date Type Department Care Team (Latest Contact Info) Description 07/08/2023 10:19 AM EST - 07/08/2023 11:59 PM EST Hospital Encounter Non-Invasive Cardiology Lab [place] [address] Alirio Esparza MD [facility] DR CARDIOTHORACIC [place] [address] S/P TAVR (transcatheter aortic valve replacement) Discharge Disposition: Home Social History Tobacco Use [...] Sig Dispensed Refills Start Date End Date furosemide (Lasix) 20 mg tablet Take 1 [...] tablet Take 81 mg by mouth daily. clopidogreL (Plavix) 75 mg tabletIndications:Aor tic valve stenosis, etiology of cardiac valve disease unspecified Take 1 tablet by mouth daily. she can take ticagrelor, then the next morning, stop ticagrelor, instead take clopidogrel 300mg once, then after that 75mg once daily. 05/28/2023 07/20/2023 documented as of this encounter Plan of Treatment Upcoming Encounters Date Type Department Care Team (Late st Contact Info) Description 02/22/2024 4:15 PM EDT Office Visit Dermatology at [place] [address] [facility] [place] [address] Marek Bonilla MD [address] [facility] [place] [address] 06/05/2024 11:30 AM EST Office Visit [place] [address] Magdalena Peralta MD [facility] [place] [address] documented as of this encounter Procedures Procedure Name Priority Date/Time Associated Diagnosis Comments ECHO LMTD W/O CONTRAST W LMTD SPEC DOPP COLOR DOPP Routine 07/08/2023 12:15 PM EST S/P TAVR (transcatheter aortic valve replacement) documented in this encounter Results * ECHO LMTD W/O CONTRAST W LMTD SPEC DOPP COLOR DOPP (07/08/2023 12:15 PM EST) EF 20 HEARTLAB SYSTEM Anatomical Region Laterality Modality Cardiac Other 07/08/2023 10:3 1 AM EST Narrative 07/08/2023 12:26 PM EST [address] [place] [address] ? Echocardiogram Report Name: ONESIMO THACKER ?Study Date: 07/08/2023 10:31 AMBP: 118/60 mmHg ? Patient Location: 4A : 1955 ? Height: 155 cm ? Account: [id number] Age: 67 yrs ? Weight: 74 kg Gender: Female ?BSA: 1.7 m2 Ordering Physician: ALIRIO ESPARZA Referring Physician: VINOD JUÁREZ Performed By: Felicia Norris RDCS Reason For Study: S/P TAVR Exam Location: [facility]. Interpretation Summary Left ventricular systolic function is [...] 05/12/2023, there is no significant change (post-procedure). Procedure Limited - 93141. Doppler - 08061. Color Doppler - 51074. Satisfactory quality. This study is limited because of body habitus. Ventricular ectopy occurs frequently during the study. Left Ventricle Left ventricle is of normal size. Mildly increased thickness of the basal septum with no obstruction to LV outflow. Left ventricular systolic function is severely reduced. Left ventricular ejection fraction is estimated visually at 15-20%. Severe global hypokinesis. Right Ventricle The right ventricle is of normal size. Right ventricular systolic function is moderately decreased. Left Atrium The left atrium is severely dilated. Right Atrium The right atrium is normal. Aortic Valve The aortic prosthetic valve appears to be functioning normally. There is a transcatheter valve in the aortic position. 23mm Corona Resilia. The date or year of insertion is 05/12/2023. The peak gradient across the prosthesis is 16.6 mmHg . The mean gradient across the prosthesis is 9.7 mmHg . There appears to be trace intravalvular regurgitation. There appears to be no paravalvular regurgitation. Mitral Valve The mitral valve leaflets are thickened. There is no mitral stenosis. There is mild to moderate mitral regurgitation. Tricuspid Valve There is mild thickening of the tricuspid leaflets. There is no tricuspid stenosis. There is mild tricuspid regurgitation. Pulmonic Valve The pulmonic valve is not well visualized. There is no pulmonic valve regurgitation. Great Arteries The aortic root is of normal size. No abnormalities are identified. The ascending aorta is not well visualized. The pulmonary artery is not well visualized. Venous Inferior vena cava is normal in size. Inferior vena cava collapse greater than 50% with respiration. Pericardium/Pleural There is no pericardial effusion. Hemodynamics Pulmonary artery hypertension could not be assessed due to inadequate tricuspid regurgitation jet. There is Grade II LV diastolic dysfunction (abnormal relaxation with elevated left ventricular filling pressure). ? 2D Measurements ? Volumes ?IVSd: 1.2 cm ? LAV(MOD-bp) Indexed: ?LVIDd: 5.9 cm ?LVIDs: 5.0 cm ?61.3 ml/m2 ?LVPWd: 0.76 cm ? RA A4Cs_phl: 14.0 cm2 ? SV(LVOT): 60.8 ml ?LV mass(C)d: 237.8 grams ?LV mass(C)dI: 137.4 grams/m2 ?? SI(LVOT): 35.1 ml/m2 ?Ao root diam: 2.7 cm ?Ao root diam index: 1.6 ?LVOT diam: 2.2 cm ?TAPSE_phl: 1.7 cm Doppler LV V1 VTI: 16.2 cm Ao V2 VTI: 42.0 cm Ao Max: 203.8 cm/sec Ao valve max: 16.6 mmHg Ao valve mean: 9.7 mmHg MV E max donal: 75.1 cm/sec MV A max donal: 102.2 cm/sec MV E/A: 0.73 MV dec time: 0.21 sec Lat Peak E' Donal: 3.4 cm/sec E/ e' (lat): 21.9 Med Peak E' Donal: 4.1 cm/sec E/e' (med): 18.2 E/e' Average: 20.1 GEOVANNA(I,D): 1.4 cm2 Dimensionless index Aov: 0.39 I ?WMSI = 2.00 ? % Normal = 0 ?Segments ??Size X - Cannot ?2 - ?4 - ?1-2 ? small Interpret ?1 - Normal ?? Hypokinetic 3 - Akinetic Dyskinetic ?? 3-5 ? moderate 5 - ? 6-14 ?large Aneurysmal ?15-16 ?? diffuse Procedure Note Lee Kincaid MD - 07/08/2023 [address] [place] [address] Echocardiogram Report Name: LASHELL THACKEROUISE Magalie Study Date: 0:31 AMBP: 118/60 mmHg Patient Location: : 1955 Height: 155 cm Account: [id number] Age: 67 yrs Weight: 74 kg Gender: Female BSA: 1.7 m2 Ordering Physician: ALIRIO ESPARZA Referring Physician: VINOD JUÁREZ Performed By: Felicia Norris RDCS Reason For Study: S/P TAVR Exam Location: [facility]. Interpretation Summary Left ventricular systolic function is severely reduced. Left ventricularejection fraction is estimated visually at 15-20%. Severe global hypokinesis. The left atrium is severely dilated. There is a bioprosthesis in the aortic position (TAVR, 23mm Edwardsvalve, implanted 05/12/2023). The peak/mean gradient is estimated at 17/10 mmHg.Trivial regurgitation. There is mild to moderate mitral regurgitation (secondary MR). Other details as below. As compared to the prior echo report from 05/12/2023, there is nosignificant change (post-procedure). Procedure Limited - 57845. Doppler - 21012. Color Doppler - 68946. Satisfactoryquality. This study is limited because of body habitus. Ventricular ectopy occurs frequently during the study. Left Ventricle Left ventricle is of normal size. Mildly increased thickness of the basalseptum with no obstruction to LV outflow. Left ventricular systolic function isseverely reduced. Left ventricular ejection fraction is estimated visually at15-20%. Severe global hypokinesis. Right Ventricle The right ventricle is of normal size. Right ventricular systolic functionis moderately decreased. Left Atrium The left atrium is severely dilated. Right Atrium The right atrium is normal. Aortic Valve The aortic prosthetic valve appears to be functioning normally. There jose alejandro transcatheter valve in the aortic position. 23mm Corona Resilia. The dateor year of insertion is 05/12/2023. The peak gradient across the prosthesis is16.6 mmHg . The mean gradient across the prosthesis is 9.7 mmHg . There appears to betrace intravalvular regurgitation. There appears to be no paravalvularregurgitation. Mitral Valve The mitral valve leaflets are thickened. There is no mitral stenosis.There is mild to moderate mitral regurgitation. Tricuspid Valve There is mild thickening of the tricuspid leaflets. There is notricuspid stenosis. There is mild tricuspid regurgitation. Pulmonic Valve The pulmonic valve is not well visualized. There is no pulmonic valve regurgitation. Great Arteries The aortic root is of normal size. No abnormalities are identified. Theascending aorta is not well visualized. The pulmonary artery is not wellvisualized. Venous Inferior vena cava is normal in size. Inferior vena cava collapse greaterthan 50% with respiration. Pericardium/Pleural There is no pericardial effusion. Hemodynamics Pulmonary artery hypertension could not be assessed due to inadequatetricuspid regurgitation jet. There is Grade II LV diastolic dysfunction (abnormalrelaxation with elevated left ventricular filling pressure). 2D Measurements Volumes IVSd: 1.2 cm LAV(MOD-bp)Indexed: LVIDd: 5.9 cm LVIDs: 5.0 cm 61.3 ml/m2 LVPWd: 0.76 cm RA A4Cs_phl: 14.0cm2 SV(LVOT): 60.8ml LV mass(C)d: 237.8 grams LV mass(C)dI: 137.4 grams/m2 SI(LVOT): 35.1ml/m2 Ao root diam: 2.7 cm Ao root diam index: 1.6 LVOT diam: 2.2 cm TAPSE_phl: 1.7 cm Doppler LV V1 VTI: 16.2 cm Ao V2 VTI: 42.0 cm Ao Max: 203.8 cm/sec Ao valve max: 16.6 mmHg Ao valve mean: 9.7 mmHg MV E max donal: 75.1 cm/sec MV A max donal: 102.2 cm/sec MV E/A: 0.73 MV dec time: 0.21 sec Lat Peak E' Donal: 3.4 cm/sec E/ e' (lat): 21.9 Med Peak E' Donal: 4.1 cm/sec E/e' (med): 18.2 E/e' Average: 20.1 GEOVANNA(I,D): 1.4 cm2 Dimensionless index Aov: 0.39 I WMSI = 2.00 % Normal = 0 SegmentsSize X - Cannot 2 - 4 - 1-2small Interpret 1 - Normal Hypokinetic 3 - Akinetic Dyskinetic 3-5moderate 5 - 6-14large Aneurysmal 15-16diffuse Alirio Esparza MD ECHO ORDERABLES documented in this encounter Visit Diagnoses Diagnosis S/P TAVR (transcatheter aortic valve replacement) documented in this encounter Care Teams Reinstatement Clerk Relationship Specialty Start Date End Date Magdalena Acosta MD [address] [place] [address] PCP - General Family Medicine 02/05/23 documented as of this encounter
--- OUTSIDE RECORDS SUMMARY | 2024-02-15 14:05 | XMS_ITS | Clinical Summary ---
Author Organization [facility] Address [address] [place] [address] Care Team Providers Care Tube Mounter Name Role Phone Ashley Chavez Primary Care Provider [phone] Social History Tobacco Use Types Packs/Day Years Used Date Smoking Tobacco: Never Assessed Interpersonal Safety Answer Date Record ed Physically Hurt Never 03/03/2020 Verbally Threaten Not on file 03/03/2020 Sex and Gender Information Value Date Recorded Sex Assigned at Not on file Gender Identity Not on file Sexual Orientation Not on file Plan of Treatment Health Maintenance Due Date Last Done Comments Hepatitis C Screen 1955 RSV Immunization ( o r 60+ Years) (1 - 1-dose 60+ series) 2015 Fall Risk Screening 2020 COVID-19 Vaccine (2022-24 season) 2023 Care Teams Tube Mounter Relationship Specialty Start Date End Date Ashley Chavez ARNP [address] [place] [address] PCP - General 07/11/10
--- OUTSIDE RECORDS SUMMARY | 2024-02-15 14:05 | XMS_ITS | Encounter Summary ---
Author Organization [facility] Address [address] [place] [address] Care Team Providers Care Distributed Energy Systems Consultant Name Role Phone Unavailable Primary Care Provider Unavailabl e Encounter Details Date Type Department Care Team (Late st Contact Info) Description 06/29/2007 Results Only [facility] - [facility] [address] [place] [address] Sánchez Acevedo MD [address] [place] [address] Social History Tobacco Use Types Packs/Day Years Used Date Smoking Tobacco: Never Assessed Sex and Gender Information Value Date Recorded Sex Assigned at Not on file Gender Identity Not on file Sexual Orientation Not on file documented as of this encounter Plan of Treatment Not on file documented as of this encounter Procedures Procedure Name Priority Date/Time Associated Diagnosis Comments SURGICAL PATHOLOGY Routine 06/29/2007 0:00 EST documented in this encounter Results * SURGICAL PATHOLOGY (06/29/2007 0:00 EST) Pathology Report: SURGICAL PATHOLOGY REPORT Reports generated via electronic interface contain original data; however they are lacking the format of the original report. Caution should be taken when reading/interpreti ng unformatted reports. Name: ? 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 Accession #: ? [id number] ? : ? 1955 (Age: 51) ??F ? Collect Date: ? 06/29/2007 ? Location: ? [facility] ? Receive Date: ? 06/29/2007 ? Provider: SÁNCHEZ ACEVEDO MD Copy to: JEMMA THOMAS ? Final Pathologic Diagnosis: ? Gallbladder, cholecystectomy: 1. ?Chronic cholecystitis. 2. ? Cholelithiasis. 3. ? Cholesterolosis. Document reviewed and electronically signed by: Vida Ortiz MD Report ??Date: 07/01/2007 15:10 By the signature above, the attending physician certifies that he/she has personally conducted a gross and/or microscopic examination of the described specimens and rendered or confirmed the above diagnosis. Specimen(s) Received: ? Gallbladder Clinical History: ? Biliary colic Gross Description: ? Received in formalin labelled Kirstie and gallbladder is a 5.5 cm in length by 1.5 cm in diameter partially incised gallbladder which includes a 0.6 cm in length by 0.2 cm in diameter normal caliber cystic duct, however, a cystic duct lymph node is not discernible. ??Received within the specimen are twelve hard black focally spiculated pure-type choleliths which range from 0.8 to 0.3 cm in greatest dimension. ??The gallbladder mucosa is niño, velvety and studded with numerous scattered yellow cholesterol polyps which range from 0.3 to 0.1 cm in greatest dimension. ??The gallbladder wall measures 0.1 cm in thickened and is covered by a smooth white serosa. ??Three outside industrial sales representative sections of the gallbladder are submitted in one cassette. ??(Sriram Elias/[facility] End of Report [facility] 06/29/2007 06/29/2007 21: 23 EST Sánchez Acevedo MD PATHOLOGY ORDERABLE [facility] [address] [place] [address] documented in this encounter Visit Diagnoses Not on filedocumented in this encounter
--- OUTSIDE RECORDS SUMMARY | 2024-02-15 14:05 | XMS_ITS | Encounter Summary ---
Author Organization [facility] [place] [address] Care Team Providers Care Decal Applier Name Role Phone Magdalena Acosta MD Primary Care Provider [phone] Encounter Details Date Type Department Care Team (Latest Contact Info) Description 12/01/2023 Travel Social History Tobacco Use Types Packs/Day Years Used Date Smoking Tobacco: Never Smokeless Tobacco: Never Alcohol Use Standard Drinks/Week Comments No 0 (1 standard drink = 0.6 oz pur e alcohol) none [facility] Inpatient Questions Answer Date Recorded Does Anyone [...] 4:15 PM EDT Office Visit Dermatology at [address] [facility] [place] [id number] Marek Bonilla MD [address] [place] [address] [place] [address] 06/05/2024 11:30 AM EST Office [place] [address] Magdalena Peralta MD [facility] [address] documented as of this encounter Visit Diagnoses Not on filedocumented in this encounter Care Teams Decal Applier Relationship Specialty Start Date End Date Magdalena Acosta MD [address] [place] [address] PCP - General Family Medicine 02/05/23 documented as of this encounter
--- OUTSIDE RECORDS SUMMARY | 2024-02-15 14:05 | XMS_ITS | Encounter Summary ---
Author Organization [facility] [place] [place] [address] Care Team Providers Care Livestock Inspector Name Role Phone Magdalena Acosta MD Primary Care Provider [phone] Encounter Details Date Type Department Care Team (Late st Contact Info) Description 12/02/2023 11:15 AM EDT [place] [address] Magdalena Peralta MD [facility] [place] [address] Mixed connective tissue disease Social History Tobacco Use Types Packs/Day Years Used Date Smoking Tobacco: Never Smokeless Tobacco: Never Alcohol Use Standard Drinks/Week Comments No 0 (1 standard drink = 0.6 oz pur e alcohol) none IPV Inpatient Questions Answer Date Recorded Does [...] oz) 12/02/2023 11:15 AM EDT w/shoes Height - - Body Mass Index 32.97 07/08/2023 10:15 AM EST documented in this encounter Progress Notes * Magdalean Peralta MD - 12/02/2023 11:15 AM EDT Rheumatology Outpatient Follow Up Note PCP: Magdalena Acosta MD Purnima Thacker is a 68 y.o. female who we are seeing for the continuing management of mixed connective tissue disease. 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 She has a nerve ablation planned with a pain clinic, hopefully to help alleviate the pain. She has been a poor surgical candidate for a TKA due to her cardiac comorbidities. She has a rash on her face and cheeks that is itchy and red. Not associated with sun exposure. She has an appointment with her Machine Woodworking Sander scheduled in January. (Dr Bonilla in [place]) ROS (positives in bold): Gen: no fevers, no chills, no night sweats Pulm: no SOB CV: no CP Abd: no abd pain, no nausea, no vomiting, no diarrhea MSK: see HPI Meds and Allergies: Reviewed in eDH Physical exam: BP 126/55 (BP Location (NBP): Left arm, Patient Position: Sitting, BP Cuff Sizes: Adult (25-34 cm)) Pulse 65 Temp 36.2 ??C (97.2 ??F) (Temporal) Resp 12 Wt 79.2 kg (174 lb 7.9 oz) Comment: w/shoes SpO2 100% BMI 32.97 kg/m?? Gen: well appearing, alert and oriented x 3, nad HEENT: NCAT, EOMI, moist mucous membranes, no oral ulcers, normal sclerae Lymph: no cervical LAD Heart: regular rate, no murmurs, rubs or gallops Lungs: clear to auscultation b/l Abd: soft, +bs, NT/ND Skin: warm and dry. Flat mildly erythematous patchy rash over the bilateral forearms Nails: no nail pitting Joints: Shoulders: FROM, non-tender to palpation Elbows: FROM, no swelling, non-tender Wrists: FROM, no swelling, non-tender Hands: No synovitis, no MCP compression tenderness, full claw and fist Knees: FROM, no effusion, no tenderness Ankles: FROM, non-tender, no effusion Feet: no MTP compression tenderness, no swelling in MTP/DIP/PIPs Labs/Studies: Reviewed. 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 Overall, Cheryl's autoimmune symptom profile seems relatively stable/quiescent and her only obviousdisease manifestation at present is her Raynaud's, primarily affecting her fingers and not her toes. She does describe some stiffness in her joints in the mornings, but she has no evidence of synovitis on her exam today whatsoever, and I think her joint pains are primarily driven by OA. She is wakin g up with a sore throat in the mornings and we discussed the possibility that this might be relatedto GERD. I recommended a daily PPI and if the symptoms do not improve after 8 weeks, would considerendoscopy. She denies dysphagia. I think the rash on her cheeks is most likely rosacea or eczema. It does appear to cross the nasolabial fold, lowering the likelihood that it is an autoimmune rash. The rash on her forearms is atypical in appearance and distribution for rashes related to MCTD but I encouraged her to contact her Machine Woodworking Sander to see if she could have her rashes evaluated sooner than January. At present, I have no reason to escalate her immunosuppression, although this may change if her rashes are ultimately attributed to MCTD. Typical HCQ dosing is 5 mg/kg/day, which would be ~400 mg daily based on Purnima's weight today of 79 kg. HCQ is sometimes associated with heart failure, so I have favored maintaining abhi a lower dose for now in light of her recent cardiac comorbidities. Luckily, her EF has shown impressive recovery, so if she continues to do well I will likely increase her dose of HCQ next time I see her. I have ordered an EKG to check her QT interval before making that change and scheduled a reminder message to be sent to her to have that completed approximately 1 month before I next see her. We spent some time today discussing the spectrum of MCTD manifestations and the possibility that itcan affect all organ systems. I sent her a list of symptoms that she should alert me to should theydevelop including: persistent cough, shortness of breath, oral or nasal ulcers, swollen joints, muscle weakness, and dry eyes or dry mouth. #MCTD - continue HCQ 200 mg qd, consider increasing to 400 mg daily pending cardiac course #sore throat - possibly related to GERD; advised 8 week PPI trial, consider endoscopy if symptoms persist #osteoarthritis - continue conservative treatment strategies (compression gloves, voltaren gel) - follow with ortho for knee OA; has a nerve ablation planned Follow up 6 months Patient was seen and discussed with Dr. Tanisha Peralta MD Rheumatology Fellow Pager: [phone] * Federico Yee MD - 12/02/2023 11:15 AM EDT Rheumatology Attending Attestation Note I have seen and examined the patient, reviewed the above history, exam, and assessment. I agree with the details as written. The assessment and plan was formulated with the fellow, Magdalena Peralta MDin discussion with me and I agree with the details as written with possible revisions below. Federico Yee MD documented in this encounter Miscellaneous Notes * Addendum Note - Federico Yee MD - 12/02/2023 11:15 AM EDTAddended by: FEDERICO YEE on: 12/03/2023 02:13 PM Modules accepted: Level of Service documented in this encounter Plan of Treatment Upcoming Encounters Date Type Department Care Team (Late st Contact Info) Description 02/22/2024 4:15 PM EDT Office Visit Dermatology at [place] [address] [place] [address] Marek Bonilla MD [address] [facility] [place] [address] 06/05/2024 11:30 AM EST [place] [address] Magdalena Peralta MD [facility] [place] [address] Scheduled Orders Name Type Priority Associated Diagnoses Orde r Schedule EKG 12 Lead ECG Routine Mixed connective tissue disease Expected: 12/02/2023, Expires: 06/03/2024 documented as of this encounter Visit Diagnoses Diagnosis Mixed connective tissue disease Other specified diffuse disease of connective tissue documented in this encounter Care Teams Livestock Inspector Relationship Specialty Start Date End Date Magdalena Acosta MD [address] [place] [address] PCP - General Family Medicine 02/05/23 documented as of this encounter
--- OUTSIDE RECORDS SUMMARY | 2024-02-15 14:05 | XMS_ITS | Encounter Summary ---
Author Organization [facility] Address [address] [place] [address] Care Team Providers Care Dry Pan Feeder Name Role Phone Unavailable Primary Care Provider Unavailabl e Encounter Details Date Type Department Care Team (Late st Contact Info) Description 04/20/2005 Results Only [facility] [address] [place] [address] Ziggy Valiente MD [address] [place] [address] [id number] Social History Tobacco Use Types Packs/Day Years Used Date Smoking Tobacco: Never Assessed Sex and Gender Information Value Date Recorded Sex Assigned at Not on file Gender Identity Not on file Sexual Orientation Not on file documented as of this encounter Plan of Treatment Not on file documented as of this encounter Procedures Procedure Name Priority Date/Time Associated Diagnosis Comments SURGICAL PATHOLOGY Routine 04/20/2005 0:00 EDT documented in this encounter Results * SURGICAL PATHOLOGY (04/20/2005 0:00 EDT) Pathology Report: SURGICAL PATHOLOGY REPORT Reports generated via electronic interface contain original data; however they are lacking the format of the original report. Caution should be taken when reading/interpreti ng unformatted reports. Name: ? 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 Accession #: ? [id number] ? : ? 1955 (Age: 49) ??F ? Collect Date: ? 04/20/2005 ? Location: ? [facility] ? Receive Date: ? 04/21/2005 ? Provider: ZIGGY VALIENTE MD Copy to: JEMMA THOMAS ? Final Pathologic Diagnosis: ? Colon, hepatic flexure, polyp, biopsies: - Polypoid fragments of markedly cauterized mucosa. ??See comment. Comment: ? Received were two markedly cauterized polypoid portions of presumed colonic mucosa. ??Although no definitive adenomatous epithelium is identified and the mucosa focally has a hyperplastic appearance, the poor preservation and present artifact precludes a more definitive diagnosis. ??Clinical correlation with endoscopic appearance is recommended. (Dr. Chino)/[facility] Document reviewed and electronically signed by: TYRON CHINO MD Report ??Date: 04/22/2005 21:28 By the signature above, the attending physician certifies that he/she has personally conducted a gross and/or microscopic examination of the described specimens and rendered or confirmed the above diagnosis. Specimen(s) Received: ? Polyp, hepatic flexure Clinical History: ? Polyps Gross Description: ? Received in Hollande's fixative labelled Kirstie and hepatic flexure polyp are two niño-pink irregular soft tissue fragments averaging 0.3 x 0.3 x 0.2 cm. ??The specimen is entirely submitted in one cassette. ??(Arabella Santos)/[facility] End of Report PAUL ARELLANO 04/20/2005 04/21/2005 15: 04 EDT Ziggy Valiente MD PATHOLOGY ORDERABLES PAUL ARELLANO [address] [place] [address] documented in this encounter Visit Diagnoses Not on filedocumented in this encounter
--- OUTSIDE RECORDS SUMMARY | 2024-02-15 14:05 | XMS_ITS | Encounter Summary ---
Author Organization [facility] [place] [address] Care Team Providers Care Avionics Safety Inspector Name Role Phone Magdalena Acosta MD Primary Care Provider [phone] Encounter Details Date Type Department Care Team (Latest Contact Info) Description 10/04/2023 Travel Social History Tobacco Use Types Packs/Day Years Used Date Smoking Tobacco: Never Smokeless Tobacco: Never Alcohol Use Standard Drinks/Week Comments No 0 (1 standard drink = 0.6 oz pur e alcohol) none [facility] Inpatient Questions Answer Date Recorded [...] 4:15 PM EDT Office Visit Dermatology at [address] [facility] [place] [id number] Marek Bonilla MD [address] [place] [address] [place] [address] 06/05/2024 11:30 AM EST [place] [address] Magdalena Peralta MD [facility] [place] [address] documented as of this encounter Visit Diagnoses Not on filedocumented in this encounter Care Teams Avionics Safety Inspector Relationship Specialty Start Date End Date Magdalena Acosta MD [address] [place] [address] PCP - General Family Medicine 02/05/23 documented as of this encounter
--- OUTSIDE RECORDS SUMMARY | 2024-02-15 14:05 | XMS_ITS | Encounter Summary ---
Author Organization [facility] Address [address] [place] [address] Care Team Providers Care Associate Programmer Analyst Name Role Phone Ashley Chavez Primary Care Provider [phone] Encounter Details Date Type Department Care Team (Late st Contact Info) Description 05/12/2022 Lab Requisition [facility] Pathology & Laboratory Medicine - [address] [id number] Outr Resulting Lab, Provider Social History Tobacco [...] Procedure Name Priority Date/Time Associated Diagnosis Comments HOLD SST Today 05/12/2022 14:32 EDT ANTI NUCLEAR AB (FRANCISCO), IFA Today 05/12/2022 14:32 EDT HOMOCYSTEINE Today 05/12/2022 14:32 EDT HAPTOGLOBIN Today 05/12/2022 14:32 EDT documented in this encounter Results * HOLD SST (05/12/2022 14:32 EDT) Hold Hold 05/12/2022 22:46 EDT [facility] Blood VENOUS BLOOD / Unknown 05/12/2022 14:32 EDT 05/12/2022 21:40 EDT Provider Outr Resulting Lab LAB INFO SER VICE AND SUPPORT & PHONE RESULT Performing Organization Address [facility]/ZIP Co de Phone Number [facility] [address] [place] [address] * (ABNORMAL) HOMOCYSTEINE (05/12/2022 14:32 EDT) Homocysteine 14.7(H) 5.0 - 13.9 umol/L 05/13/2022 9:05 EDT [facility] Comment:Results may be false ly elevated if sample is not collected on ice or is not removed from cells within 1 hour of collection. Blood VENOUS BLOOD / Unknown 05/12/2022 14:32 EDT 05/12/2022 21:40 EDT Narrative [facility] - 05/13/2022 9:05 EDT Reference range may not apply to non-fasting samples. ??It is not recommended that EDTA plasma and serum from the same patient be used interchangeably. ??Serum concentrations have been observed to be up to 10% higher than EDTA plasma. Reference range may not apply to serum results. Provider Outr Resulting Lab CHEMISTRY & BLOOD GAS ORDERABLES Performing Organization Address [facility] Co de Phone Number [facility] [address] [place] [address] * HAPTOGLOBIN (05/12/2022 14:32 EDT) Pathologist [facility] Haptoglobin 138 32 - 197 mg/dL 05/13/2022 9:55 EDT [facility] Blood VENOUS BLOOD / Unknown 05/12/2022 14:32 EDT 05/12/2022 21:36 EDT Provider Outr Resulting Lab CHEMISTRY & BLOOD GAS ORDERABLES Performing Organization Address [facility] Co de Phone Number [facility] [address] [place] [address] * (ABNORMAL) ANTI NUCLEAR AB (FRANCISCO), IFA (05/12/2022 14:32 EDT) FRANCISCO Interpretation Positive(A) Negative 05/13/2022 14:44 EDT [facility] Comment: Result is equal to or greater than 1:5120. For titers greater than or equal to 1:160 (except the centromere, nucleolar, and dense fine speckled patterns) it is recommended that specific, follow-up autoantibody testing (such as for dsDNA and Extractable Nuclear Antigens) be performed on all diffuse and/or speckled patterns. FRANCISCO Titer and Pattern 1 1:5120 Speckled 05/13/2022 14:44 EDT [facility] Blood VENOUS BLOOD / Unknown 05/12/2022 14:32 EDT 05/12/2022 21:36 EDT Narrative [facility] - 05/13/2022 14:44 EDT Results were obtained with the INOVA NOVA Lite HEp-2 FRANCISCO Kit by indirect immunofluorescence. Provider Outr Resulting Lab IMMUNOLOGY A ND SEROLOGY ORDERABLES [facility] [address] [place] [address] documented in this encounter Visit Diagnoses Not on filedocumented in this encounter Care Teams Associate Programmer Analyst Relationship Specialty Start Date End Date Ashley Chavez ARNP [address] [place] [address] PCP - General 07/11/10 documented as of this encounter
--- OUTSIDE RECORDS SUMMARY | 2024-02-15 14:05 | XMS_ITS | Encounter Summary ---
Author Organization [facility] Address [address] [place] [id number] Care Team Providers Care Carcass Splitter Name Role Phone Ashley Chavez Primary Care Provider [phone] Encounter Details Date Type Department Care Team (Latest Contact Info) Description 05/12/2019 13:18 EDT - 05/12/2019 23:59 EDT Hospital Encounter [address] [address] Unknown, Provider, Discharge Disposition: Home or Self Care Social History Tobacco Use Types Packs/Day Years Used Date Smoking Tobacco: Never Assessed Sex and Gender Information Value Date Recorded Sex Assigned at Not on file Gender Identity Not on file Sexual Orientation Not on file documented as of this encounter Discharge Disposition Disposition Code Departure Means Destination Home or Self Nursing Home documented in this encounter Plan of Treatment Not on file documented as of this encounter Visit Diagnoses Not on filedocumented in this encounter Care Teams Carcass Splitter Relationship Specialty Start Date End Date Ashley Chavez ARNP [address] [place] [address] PCP - General 07/11/10 documented as of this encounter
--- OUTSIDE RECORDS SUMMARY | 2024-02-15 14:05 | XMS_ITS | Encounter Summary ---
Author Organization [facility] Address [address] [place] [address] Care Team Providers Care Compound Specialist Name Role Phone Scott Ashley WILLIAM Primary Care Provider [phone] Encounter Details Date Type Department Care Team (Late st Contact Info) Description 05/12/2019 Results Only [facility] [phone] Nadira Gregorio MD [address] [place] [phone] Social History Tobacco Use Types Packs/Day Years Used Date Smoking Tobacco: Never Assessed Sex and Gender Information Value Date Recorded Sex Assigned at Not on file Gender Identity Not on file Sexual Orientation Not on file documented as of this encounter Plan of Treatment Not on file documented as of this encounter Procedures Procedure Name Priority Date/Time Associated Diagnosis Comments SURGICAL PATHOLOGY Routine 05/12/2019 16 :03 EDT documented in this encounter Results * SURGICAL PATHOLOGY (05/12/2019 16:03 EDT) Pathology Report: SURGICAL PATHOLOGY REPORT Reports generated via electronic interface contain original data; however they are lacking the format of the original report. Caution should be taken when reading/interpret ing unformatted reports. Name: ? 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 Accession #: ? [id number] ? : ? 1955 (Age: 63) ??F ? Collect Date: ? 05/12/2019 ? Location: ? [facility] ? Receive Date: ? 05/12/2019 ? Provider: NADIRA GREGORIO MD Copy to: [facility] ? Final Pathologic Diagnosis: COLON, CECUM, POLYP, BIOPSY: - Tubular adenoma. Document reviewed and electronically signed by: KLAUDIA FERRARA MD Report ??Date: 05/15/2019 12:49 By the signature above, the attending physician certifies that he/she has personally conducted a gross and/or microscopic examination of the described specimens and rendered or confirmed the above diagnosis. Specimen(s) Received: Cecal polyp Clinical History: Screening colonoscopy Gross Description: ? Received in formalin labelled with proper patient identification (initials P, E) and cecal polyp are two pink-niño tissues (0.3 x 0.3 x 0.2 cm and 0.2 x 0.1 x 0.1 cm). Entirely submitted in block 1. EKATERINA Hammond (ASCP) 05/12/2019 6:08 PM End of Report [facility] 05/12/2019 16:0 3 EDT 05/12/2019 16:03 EDT Nadira Gregorio MD PATHOLOGY ORDERABLES [facility] [address] [place] [address] documented in this encounter Visit Diagnoses Not on filedocumented in this encounter Care Teams Compound Specialist Relationship Specialty Start Date End Date Ashley Chavez ARNP [address] [place] [address] PCP - General 07/11/10 documented as of this encounter
--- OUTSIDE RECORDS SUMMARY | 2024-02-15 14:05 | XMS_ITS | Encounter Summary ---
Author Organization [facility] Address [address] [place] [address] Care Team Providers Care Diversity Manager Name Role Phone Ashley Chavez Primary Care Provider [phone] Encounter Details Date Type Department Care Team (Late st Contact Info) Description 01/07/2023 Lab Requisition [facility] Pathology & Laboratory Medicine - [address] [address] Outr Resulting Lab, Provider Social History Tobacco [...] Procedure Name Priority Date/Time Associated Diagnosis Comments SPEP, INCLUDES QUANTITATION OF MONOCLONAL SPIKE PERFORMABLE Today 01/06/2023 14:40 EDT VIC ANTIBODY PANEL Routine 01/06/2023 14 :40 EDT ANTI NUCLEAR AB (FRANCISCO), IFA Routine 01/06/2023 14:40 EDT SPEP, INCLUDES QUANTITATION OF MONOCLONAL SPIKE Routine 01/06/2023 14:40 EDT PROTEIN, TOTAL Today 01/06/2023 14:40 EDT documented in this encounter Results * (ABNORMAL) SPEP, INCLUDES QUANTITATION OF MONOCLONAL SPIKE PERFORMABLE (01/06/2023 14:40 EDT) Albumin % 56.2 55.8 - 66.1 % 01/08/2023 11:28 [facility] Albumin g/dL 3.9 3.6 - 5.2 g/dL 01/08/2023 11:28 [facility] Alpha-1 % 5.1(H) 2.9 - 4.9 % 01/08/2023 11:28 [facility] Alpha-1 g/dL 0.40 0.15 - 0.40 g/dL 01/08/2023 11:28 [facility] Alpha-2 % 7.0(L) 7.1 - 11.8 % 01/08/2023 11:28 [facility] Alpha-2 g/dL 0.50 0.50 - 1.00 g/dL 01/08/2023 11:28 [facility] Beta % 12.7 8.4 - 13.1 % 01/08/2023 11:28 [facility] Beta g/dL 0.90 0.60 - 1.20 g/dL 01/08/2023 11:28 [facility] Gamma % 19.0(H) 11.1 - 18.8 % 01/08/2023 11:28 [facility] Gamma g/dL 1.30 0.60 - 1.60 g/dL 01/08/2023 11:28 [facility] SPEP Comment No apparent monoclonal protein seen on serum electrophoresis 01/08/2023 11:28 [facility] Comment:See scanned/suppleme ntary report. Total Protein 6.9 6.3 - 8.2 g/dL 01/08/2023 11:28 [facility] Blood VENOUS BLOOD / Unknown 01/06/2023 14:40 EDT 01/07/2023 17:37 EDT Provider Outr Resulting Lab CHEMISTRY & BLOOD GAS ORDERABLES Performing Organization Address City/State/[facility] Co de Phone Number [facility] [address] [place] [address] * PROTEIN, TOTAL (01/06/2023 14:40 EDT) Blood VENOUS BLOOD / Unknown 01/06/2023 14:40 EDT 01/07/2023 17:37 EDT Provider Outr Resulting Lab CHEMISTRY & BLOOD GAS ORDERABLES Performing Organization Address [facility] Co de Phone Number [facility] [address] [place] [address] * (ABNORMAL) EXTRACTABLE NUCLEAR ANTIGEN PANEL (01/06/2023 14:40 EDT) SSA Antibody 1.3 <20.0 Units 01/08/2023 15:42 EDT [facility] Comment: ? Negative: <20.0 Units ? Weak Positive: 20.0 - 39.9 Units ? Moderate Positive: 40.0 - 80.0 Units ? Strong Positive: >80.0 Units Results were obtained with the INOVA QUANTA Lite SS-A DOMO. ??SS-A values obtained with different manufacturers' assay methods may not be used interchangeably. ??The magnitude of the reported IgG levels cannot be correlated to an endpoint titer. SSB Antibody 1.5 <20.0 Units 01/08/2023 15:42 EDT [facility] Comment: ? Negative: <20.0 Units ? Weak Positive: 20.0 - 39.9 Units ? Moderate Positive: 40.0 - 80.0 Units ? Strong Positive: >80.0 Units Results were obtained with the INOVA QUANTA Lite SS-B DOMO. ??SS-B values obtained with different manufacturers' assay methods may not be used interchangeably. ??The magnitude of the reported IgG levels cannot be correlated to an endpoint titer. SM (Moreno) Antibody 15.3 <20.0 Units 01/08/2023 15:42 EDT [facility] Comment: ? Negative: <20.0 Units ? Weak Positive: 20.0 - 39.9 Units ? Moderate Positive: 40.0 - 80.0 Units ? Strong Positive: >80.0 Units Results were obtained with the [employer] QUANTA Lite Sm DOMO. ??Sm values obtained with different manufacturers' assay methods may not be used interchangeably. ??The magnitude of the reported IgG levels cannot be correlated to an endpoint titer. DIETETIC TECH Antibody 149.1(H) <20.0 Units 01/08/2023 15:42 EDT [facility] Comment: ? Negative: <20.0 Units ? Weak Positive: 20.0 - 39.9 Units ? Moderate Positive: 40.0 - 80.0 Units ? Strong Positive: >80.0 Units Results were obtained with the [employer] Quanta Lite DIETETIC TECH DOMO. DIETETIC TECH values obtained with different diagnostic sales specialist's assay methods may not be used interchangeaby. ??The magnitude of the reported IgG levels cannot be be correlated to an endpoint titer. A positive result in the Quanta Lite DIETETIC TECH DOMO indicates the presence of antibodies reactive with the DIETETIC TECH/Sm complex but cannot distinguish between anti-Sm and anti-DIETETIC TECH activity. Blood VENOUS BLOOD / Unknown 01/06/2023 14:40 EDT 01/07/2023 17:37 EDT Provider Outr Resulting Lab IMMUNOLOGY A ND SEROLOGY ORDERABLES [facility] [address] [place] [address] * (ABNORMAL) ANTI NUCLEAR AB (FRANCISCO), IFA (01/06/2023 14:40 EDT) FRANCISCO Interpretation Positive(A) Negative 01/08/2023 15:22 EDT [facility] Comment: Result is equal to or greater than 1:5120. For titers greater than or equal to 1:160 (except the centromere, nucleolar, and dense fine speckled patterns) it is recommended that specific, follow-up autoantibody testing (such as for dsDNA and Extractable Nuclear Antigens) be performed on all diffuse and/or speckled patterns. FRANCISCO Titer and Pattern 1 1:5120 Speckled 01/08/2023 15:22 EDT [facility] Blood VENOUS BLOOD / Unknown 01/06/2023 14:40 EDT 01/07/2023 17:37 EDT Narrative [facility] - 01/08/2023 15:22 EDT Results were obtained with the INOVA NOVA Lite HEp-2 FRANCISCO Kit by indirect immunofluorescence. Provider Outr Resulting Lab IMMUNOLOGY A ND SEROLOGY ORDERABLES Performing Organization Address City/State/[facility] Co de Phone Number [facility] [address] [place] [address] documented in this encounter Visit Diagnoses Not on filedocumented in this encounter Care Teams Diversity Manager Relationship Specialty Start Date End Date Ashley Chavez ARNP [address] [place] [address] PCP - General 07/11/10 documented as of this encounter
--- OUTSIDE RECORDS SUMMARY | 2024-02-15 14:05 | XMS_ITS | Encounter Summary ---
Author Organization [facility] Address [facility] [place] [address] Care Team Providers Care Mobile Ui Designer Name Role Phone Magdalena Acosta MD Primary Care Provider [phone] Encounter Details Date Type Department Care Team (Late st Contact Info) Description 07/29/2023 11:00 AM EST [place] [address] Magdalena Peralta MD [facility] [place] [address] Mixed connective tissue disease Social History Tobacco [...] Sign Reading Time Taken Comments Blood Pressure 118/41 07/29/2023 10:38 AM EST Pulse 67 07/29/2023 10:38 AM EST Temperature 36.9 ??C (98.4 ??F) 07/29/2023 10:[address] Respiratory Rate 12 07/29/2023 10:38 AM EST Oxygen Saturation 100% 07/29/2023 10:38 AM EST Inhaled Oxygen Concentration - - Weight 72.4 kg (159 lb 9.6 oz) 07/29/2023 10:38 AM EST w/shoes Height - - Body Mass Index 30.16 07/08/2023 10:15 AM EST documented in this encounter Patient Instructions * Patient Instructions* Magdalena Peralta MD - 07/29/2023 11:00 AM EST While your heart function recovers, please continue Hydroxychloroquine 200 mg once daily Please return for lung function tests (PFTs). This will be a baseline, and we will repeat them oncea year as long as your symptoms remain stable. Consider buying compression gloves to help with your hand pain. You can use Voltaren gel on your shoulders, elbows, hands, or knees up to 4 times per day. documented in this encounter Progress Notes * Magdalena Peralta MD - 07/29/2023 11:00 AM EST Rheumatology Outpatient Follow Up Note PCP: Magdalena Acosta MD Purnima Thacker is a 67 y.o. female who we are seeing for the continuing management of mixed connective tissue disease. 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 Notes pain is worst in her knees, shoulders, and elbows. No dysphagia, no heart burn, no rashes Had a period of oral ulcers years ago but none recently Has lost 80 lbs in the last 2 years; relates this to improving her diet (more fruit, no more ice cream) ROS (positives in bold): Gen: no fevers, no chills, no night sweats Pulm: no SOB CV: no CP Abd: no abd pain, no nausea, no vomiting, no diarrhea MSK: see HPI Meds and Allergies: Reviewed in eDH Physical exam: BP 118/41 (BP Location (NBP): Right arm, Patient Position: Sitting, BP Cuff Sizes: Adult (25-34 cm)) Pulse 67 Temp 36.9 ??C (98.4 ??F) (Temporal) Resp 12 Wt 72.4 kg (159 lb 9.6 oz) Comment: w/shoes SpO2 100% BMI 30.16 kg/m?? Gen: well appearing, alert and oriented x 3, nad HEENT: NCAT, EOMI, moist mucous membranes, no oral ulcers, normal sclerae Lymph: no cervical LAD Abd: soft, +bs, NT/ND Skin: warm and dry, no rheumatologic rashes Nails: no nail pitting. Periungual blushing noted. Joints: Shoulders: FROM, pain in the left shoulder elicited by cross-body testing Elbows: FROM, no swelling, non-tender Wrists: FROM, no swelling, non-tender Hands: No synovitis, no MCP compression tenderness, full claw and fist Knees: FROM, no effusion, no tenderness. Crepitus bilaterally with extension. Labs/Studies: Reviewed. 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 Overall, Cheryl's autoimmune symptom profile seems relatively stable/quiescent. She experiences generalized achiness and stiffness in her joints, which is confounded to some degree by her known OA. Idon't think she warrants an escalation in her immunosuppression regimen. Advised her to use Voltaren gel and compression gloves. May consider PT referral and/or steroid injection at next OV. We will get baseline PFTs. Considering her weight and cardiomyopathy, will continue HCQ 200 mg daily rather than increasing to BID dosing. #MCTD - continue HCQ 200 mg qd #shoulder impingement #hand stiffness #knee OA - voltaren gel PRN - Tylenol PRN - consider PT referral vs steroid injection at next OV Follow up 4 months Patient was seen and discussed with Dr. Viramontes. Magdalena Peralta MD Rheumatology Fellow Pager: [phone] * Kia Viramontes DO - 07/29/2023 11:00 AM EST ATTENDING ADDENDUM The patient's history was reviewed, and I interviewed and examined the patient with Dr. Peralta I agree with her summary, findings, and plan. documented in this encounter Plan of Treatment Upcoming Encounters Date Type Department Care Team (Late st Contact Info) Description 02/22/2024 4:15 PM EDT Office Visit Dermatology at [address] [address] Marek Bonilla MD [address] [place] [address] [place] [address] 06/05/2024 11:30 AM EST [place] [address] Magdalena Peralta MD [facility] [place] [address] documented as of this encounter Results * Pulmonary Function Testing [...] PFT FEV1/FVC Pre-BD Z-Score 0 COMPAS PFT [id number] Actual Pre-BD 2.41 % COMPAS PFT CZW91-83 Predicted 1.8 % COMPAS PFT [id number] Pre-BD % of Predicted 134 % COMPAS PFT [id number] Pre-BD Z-Score 0.81 COMPAS PFT DLCO Hb [...] Other specified diffuse disease of connective tissue Mixed connective tissue disease Other specified diffuse disease of connective tissue documented in this encounter Care Teams Mobile Ui Designer Relationship Specialty Start Date End Date Magdalena Acosta MD [address] [place] [address] PCP - General Family Medicine 02/05/23 documented as of this encounter
--- OUTSIDE RECORDS SUMMARY | 2024-02-15 14:05 | XMS_ITS | Encounter Summary ---
Author Organization [facility] Address [address] [place] [address] Care Team Providers Care Jammer Hooker Name Role Phone Scott, Ashley WILLIAM Primary Care Provider [phone] Encounter Details Date Type Department Care Team (Late st Contact Info) Description 12/23/2016 Results Only [facility] [phone] Deborah Quiroga, TREATMENT MANAGER [address] [place] [address] [phone] Social History Tobacco Use Types Packs/Day Years [...] Diagnosis Comments PAP TEST- RESULT ONLY Routine 12/23/2016 0:00 EDT documented in this encounter Results * PAP TEST- RESULT ONLY (12/23/2016 0:00 EDT) Pathology Report: CYTOPATHOLOGY REPORT Reports generated via electronic interface contain original data; however they are lacking the format of the original report. Caution should be taken when reading/interpreti ng unformatted reports. Name: ? 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 Accession #: ? [id number] ? : ? 1955 (Age: 61) ??F ?Collect Date: ? 12/23/2016 ? Location: ? [facility] ? Receive Date: ? 12/25/2016 ? Provider: DEBORAH QUIROGA BASKET PERSON Copy to: ? Final Report SPECIMEN ADEQUACY ? Satisfactory for Evaluation - transformation zone component present GENERAL CATEGORIZATION ? Negative for Intraepithelial Lesion or Malignancy ?? Last Menstrual Period: years Specimen/Source: ??Pap Test, Cervix, ThinPrep Imaging System with manual evaluation Document reviewed and electronically signed by: ? Monica Cason [facility](ASCP) ? Report ??Date: 01/06/2017 09:11 HPV with Pap Test ? Date Ordered: ? 01/06/2017 ? Status: ?? Signed Out ?Date Complete: ? 01/07/2017 ? By: ??System Interface ? Date Reported: ? 01/07/2017 ? Interpretation RESULT: Negative for HPV. No E6 or E7 mRNA is detected from HPV types 16,18,31,33,35, 39,45,51,52,56,58, 59,66, and 68 by commercial collections driver mediated amplification. Comments Document reviewed and electronically signed by: ? System Interface ? Report date: 01/07/2017 By the signature above, the attending physician certifies that he/she has personally conducted a gross and/or microscopic examination of the described specimens and rendered or confirmed the above diagnosis. End of Report [facility] 12/23/2016 12/25/2016 Deborah Quiroga TREATMENT MANAGER PATHOLOGY ORDERABLES [facility] [address] [place] [address] documented in this encounter Visit Diagnoses Not on filedocumented in this encounter Care Teams Jammer Hooker Relationship Specialty Start Date End Date Ashley Chavez ARNP [address] [place] [address] PCP - General 07/11/10 documented as of this encounter
--- OUTSIDE RECORDS SUMMARY | 2024-02-15 14:05 | XMS_ITS | Referral Summary ---
Author Organization [facility] Address [address] [place] [address] Care Team Providers Care Crusher Setter Name Role Phone Ashley Chavez Primary Care Provider [phone] Social History Tobacco Use Types Packs/Day Years Used Date Smoking Tobacco: Never Assessed Interpersonal Safety Answer Date Record ed Physically Hurt Never 03/03/2020 Verbally Threaten Not on file 03/03/2020 Sex and Gender Information Value Date Recorded Sex Assigned at Not on file Gender Identity Not on file Sexual Orientation Not on file Plan of Treatment Not on file Care Teams Crusher Setter Relationship Specialty Start Date End Date Ashley Chavez ARNP [address] [place] [address] PCP - General 07/11/10
--- OUTSIDE RECORDS SUMMARY | 2024-02-15 14:05 | XMS_ITS | Encounter Summary ---
Author Organization [facility] [place] [address] Care Team Providers Care Microfilm Duplicating Unit Supervisor Name Role Phone Magdalena Acosta MD Primary Care Provider [phone] Encounter Details Date Type Department Care Team (Latest Contact Info) Description 07/06/2023 Travel Social History Tobacco Use Types Packs/Day Years Used Date Smoking Tobacco: Never Smokeless Tobacco: Never Alcohol Use Standard Drinks/Week Comments No 0 (1 standard drink = 0.6 oz pur e alcohol) none [facility] Inpatient Questions Answer Date Recorded Does Anyone [...] 4:15 PM EDT Office Visit Dermatology at [address] [facility] [place] [phone] Marek Bonilla MD [address] [facility] [place] [place] [address] 06/05/2024 11:30 AM EST Office [place] [address] Magdalena Peralta MD [facility] [place] [address] documented as of this encounter Visit Diagnoses Not on filedocumented in this encounter Care Teams Microfilm Duplicating Unit Supervisor Relationship Specialty Start Date End Date Magdalena Acosta MD [address] [place] [address] PCP - General Family Medicine 02/05/23 documented as of this encounter
--- OUTSIDE RECORDS SUMMARY | 2024-02-15 14:05 | XMS_ITS | Encounter Summary ---
Author Organization [facility] [place] [address] Care Team Providers Care Group Sales Coordinator Name Role Phone Magdalena Acosta MD Primary Care Provider [phone] Encounter Details Date Type Department Care Team (Latest Contact Info) Description 07/08/2023 Travel Social History Tobacco Use Types Packs/Day Years Used Date Smoking Tobacco: Never Smokeless Tobacco: Never Alcohol Use Standard Drinks/Week Comments No 0 (1 standard drink = 0.6 oz pur e alcohol) none [facility] Inpatient Questions Answer Date Recorded [...] 4:15 PM EDT Office Visit Dermatology at [address] [facility] [place] [phone] Marek Bonilla MD [address] [facility] [place] [address] 06/05/2024 11:30 AM EST [place] [address] Magdalena Peralta MD [facility] [place] [address] documented as of this encounter Visit Diagnoses Not on filedocumented in this encounter Care Teams Group Sales Coordinator Relationship Specialty Start Date End Date Magdalena Acosta MD [address] [place] [address] PCP - General Family Medicine 02/05/23 documented as of this encounter
--- OUTSIDE RECORDS SUMMARY | 2024-02-15 14:05 | XMS_ITS | Encounter Summary ---
Author Organization [facility] Address [address] [place] [address] Care Team Providers Care Technical Trainer Name Role Phone Unavailable Primary Care Provider Unavailabl e Encounter Details Date Type Department Care Team (Late st Contact Info) Description 03/24/2007 11:06 EDT - 03/24/2007 11:59 EDT Hospital Encounter [facility] - Other [address] [place] [address] Ashley Chavez ARNP [address] [place] [address] Discharge Disposition: Home or Self Care Social History Tobacco Use Types Packs/Day Years Used Date Smoking Tobacco: Never Assessed Sex and Gender Information Value Date Recorded Sex Assigned at Not on file Gender Identity Not on file Sexual Orientation Not on file documented as of this encounter Discharge Disposition Disposition Code Departure Means Destination Home or Self Care documented in this encounter Plan of Treatment Not on file documented as of this encounter Visit Diagnoses Not on filedocumented in this encounter
--- OUTSIDE RECORDS SUMMARY | 2024-02-15 14:05 | XMS_ITS | Encounter Summary ---
Author Organization [facility] Address [address] [place] [address] Care Team Providers Care Pattern Perforating Machine Operator Name Role Phone Ashley Chavez Primary Care Provider [phone] Encounter Details Date Type Department Care Team (Late st Contact Info) Description 12/17/2021 Lab Requisition [facility] Pathology & Laboratory Medicine - [address] [id number] Outr Resulting Lab, Provider Social History Tobacco [...] Procedure Name Priority Date/Time Associated Diagnosis Comments LYME AB Routine 12/17/2021 13:30 EDT ANTI NUCLEAR AB (FRANCISCO), IFA Routine 12/17/2021 13:30 EDT documented in this encounter Results * LYME AB (12/17/2021 13:30 EDT) Lyme Ab Negative Negative 12/18/2021 10:37 EDT [facility] Blood VENOUS BLOOD / Unknown 12/17/2021 13:30 EDT 12/17/2021 21:32 EDT Provider Outr Resulting Lab IMMUNOLOGY A ND SEROLOGY ORDERABLES Performing Organization Address [facility] Co de Phone Number [facility] [address] [place] [address] * (ABNORMAL) ANTI NUCLEAR AB (FRANCISCO), IFA (12/17/2021 13:30 EDT) FRANCISCO Interpretation Positive(A) Negative 12/18/2021 16:06 EDT [facility] Comment: For titers greater than or equal to 1:160 (except the centromere and nucleolar patterns) it is recommended that specific follow-up autoantibody testing ??(such as for dsDNA and Extractable Nuclear Antigens) be performed on all diffuse and/or speckled patterns NOTE: For add-on testing dsDNA is stable for 7 days refrigerated while Extractable Nuclear Antigens are only stable for 48 hours refrigerated. Cytoplasmic Pattern Noted, Speckled FRANCISCO Titer and Pattern 1 1:1280 Speckled 12/18/2021 16:06 EDT [facility] Blood VENOUS BLOOD / Unknown 12/17/2021 13:30 EDT 12/17/2021 21:32 EDT Narrative [facility] - 12/18/2021 16:06 EDT Results were obtained with the INOVA NOVA Lite HEp-2 FRANCISCO Kit by indirect immunofluorescence. Provider Outr Resulting Lab IMMUNOLOGY A ND SEROLOGY ORDERABLES Performing Organization Address [facility] Co de Phone Number [facility] [address] [place] [address] documented in this encounter Visit Diagnoses Not on filedocumented in this encounter Care Teams Pattern Perforating Machine Operator Relationship Specialty Start Date End Date Ashley Chavez ARNP [address] [place] [address] PCP - General 07/11/10 documented as of this encounter
--- OUTSIDE RECORDS SUMMARY | 2024-02-15 14:05 | XMS_ITS | Encounter Summary ---
Author Organization [facility] Address [address] [place] [address] Care Team Providers Care Research Contracts Supervisor Name Role Phone Unavailable Primary Care Provider Unavailabl e Encounter Details Date Type Department Care Team (Late st Contact Info) Description 07/08/2010 10:55 EST - 07/08/2010 10:56 EST Hospital Encounter [facility] - Other [address] [place] [address] Ashley Chavez, WILLIAM [address] [place] [address] Discharge Disposition: Home or Self Care Social [...]
--- OUTSIDE RECORDS SUMMARY | 2024-02-15 14:07 | XMS_ITS | Encounter Summary ---
Author Organization [facility] [place] [address] Care Team Providers Care Founder And Chief Executive Officer Name Role Phone Magdalena Acosta MD Primary Care Provider Encounter Details Date Type Department Care Team (Latest Contact Info) Description 05/14/2023 Travel Social History Tobacco Use Types Packs/Day Years Used Date Smoking Tobacco: Never Smokeless Tobacco: Never Alcohol Use Standard Drinks/Week Comments No 0 (1 standard drink = 0.6 oz pur e alcohol) none [facility] Inpatient Questions Answer Date Recorded Does [...] 4:15 PM EDT Office Visit Dermatology at [address] [facility] [place] [id number] Marek Bonilla MD [address] [facility] [place] [address] 06/05/2024 11:30 AM EST [place] [address] Magdalena Peralta MD [facility] [place] [address] documented as of this encounter Visit Diagnoses Not on filedocumented in this encounter Care Teams Founder And Chief Executive Officer Relationship Specialty Start Date End Date Magdalena Acosta MD [address] [place] [address] PCP - General Family Medicine 02/05/23 documented as of this encounter
--- OUTSIDE RECORDS SUMMARY | 2024-02-15 14:07 | XMS_ITS | Encounter Summary ---
Author Organization [facility] Address [facility] [place] [address] Care Team Providers Care Four Slide Operator Name Role Phone Magdalena Acosta MD Primary Care Provider [phone] Reason for Referral * Diagnostic Test (Routine) - Closed Specialty Diagnoses / Procedures Referred By Contac t Referred To Contact Cardiology Diagnoses S/P TAVR (transcatheter aortic valve replacement) Procedures Echocardiogram Transthoracic Vinod Juárez PA [facility] [place] [address] [facility] [place] [address] Referral ID Status Reason Start Date Expiration Date V isits Requested Visits Authorized [id number] Closed Specialty Service Requested 05/22/2023 05/21/2024 1 1 * Home Health Care (Routine) - Closed Specialty Diagnoses / Procedures Referred By Contac t Referred To Contact Diagnoses S/P TAVR (transcatheter aortic valve replacement) Alirio Hudson MD [facility] [place] [address] [facility] [address] [place] [address] Referral ID Status Reason Start Date Expiration Date V isits Requested Visits Authorized [id number] Closed Consult, Test & Treat 05/22/2023 11/18/2023 999 999 * Consultation (Routine) - Closed Specialty Diagnoses / Procedures Referred By Crispin maxwell Referred To Contact Cardiology Diagnoses S/P TAVR (transcatheter aortic valve replacement) Alirio Hudson MD [facility] [place] [address] Cardiac Rehab, [facility] [address] [place] [address] [place] [address] Referral ID Status Reason Start Date Expiration Date V isits Requested Visits Authorized [id number] Closed Consult, Test & Treat 05/22/2023 11/18/2023 36 36 * Diagnostic Test (Routine) - Closed Specialty Diagnoses / Procedures Referred By Crispin maxwell Referred To Contact Cardiology Diagnoses Aortic valve stenosis, etiology of cardiac valve disease unspecified Procedures Echocardiogram Transthoracic Transesophageal Echocardiogram (YUSRA) Radha Hollins MD [facility] [place] [address] [facility] [place] [address] Referral ID Status Reason Start Date Expiration Date V isits Requested Visits Authorized [id number] Closed Specialty Service Requested 05/11/2023 05/10/2024 1 1 Reason for Visit * Auth/Cert (Routine) Specialty Diagnoses / Procedures Referred By Crispin maxwell Referred To Contact Diagnoses Symptomatic severe aortic stenosis with low ejection fraction NSTEMI, CHF Enrique Chua MD [facility] [place] [address] [facility] Referral ID Status Reason Start Date Expiration Date Visits Re quested Visits Authorized [id number] 1 1 Encounter Details Date Type Department Care Team (Latest Contact Info) Description 05/08/2023 9:14 AM EDT - 05/22/2023 10:46 AM EDT Hospital Encounter Heart and Vascular Unit Level 4 [place] [address] Enrique Chua MD [facility] [place] [address] Juan Luis Gonzalez MD [facility] [place] [address] Radha Hollins MD [facility] [place] [address] Alirio Hudson MD [facility] DR [place] [address] S/P TAVR (transcatheter aortic valve replacement) (Primary Dx); Aortic valve stenosis, etiology of cardiac valve disease unspecified; Symptomatic severe aortic stenosis with low ejection fraction; Heart failure with reduced ejection fraction due to heart valve disease; Mild coronary artery disease by [facility] 11/09/2022; Mixed connective tissue disease; Neck pain; Rosacea; NICOLAS (obstructive sleep apnea); Essential tremor; Essential hypertension; Diverticulosis; Depressive disorder; Chronic idiopathic neutropenia; Stenosis of prosthetic aortic valve, initial encounter Discharge Disposition: Home with VNA Social History Tobacco Use Types Packs/Day Years [...] Sign Reading Time Taken Comments Blood Pressure 107/54 05/22/2023 7:23 AM EDT Pulse 95 05/22/2023 7:23 AM EDT Temperature 37 ??C (98.6 ??F) 05/22/2023 3:44 AM EDT Respiratory Rate 19 05/22/2023 7:23 AM EDT Oxygen Saturation 98% 05/22/2023 7:23 AM EDT Inhaled Oxygen Concentration - - Weight 75.1 kg (165 lb 8 oz) 05/22/2023 5:00 AM EDT Height 154.9 cm (5' 0.98) 05/16/2023 4:00 AM ED T Body Mass Index 31.29 05/16/2023 4:00 AM EDT documented in this encounter Discharge Summaries * Vinod Juárez PA - 05/22/2023 7:54 AM EDT Inpatient - Discharge Summary Patient Name: Purnima Thacker Patient Age: 67 y.o. Birthdate: 1955 Language: Greenlandic Race: White Ethnicity: Not nor Admit Date: 05/08/2023 Discharge Date: 05/22/2023 Attending Physician: Alirio Hudson MD Follow-up Recommendations for Providers: Please continue routine management of cardiovascular risk factors including blood pressure, lipids,glucose, etc. Please note any medication changes. Patient to follow up with PCP, Magdalena Acosta MD, or Primary Installation And Service Technician, Avis Mejia MD, in ~ 7-10 days. Patient to follow up with Sewer Head, Dr. Antelmo Sharma, in 2 weeks with an EKG, Echo, CBC, and CMP. Patient to follow up with Nephrology, their office to arrange. Tgru-[id number]-ar interval: After initial 30 day follow-up appointment , all TAVR patients will follow-up again in one year with an echo. 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 Other Diagnoses (Chronic Problems): Active Non-Hospital Problems Diagnosis Mixed connective tissue disease Neck pain Diverticulosis Rosacea Aortic stenosis Chronic idiopathic neutropenia Depressive disorder Essential tremor Obesity Essential hypertension Discharged to: Patient discharged to home Past Medical History: Diagnosis Date Anemia Past Surgical History: Procedure Laterality Date IR CHEST TUBE PLACEMENT RIGHT 05/18/2023 IR Chest Tube Placement Right 05/18/2023 Laure Ricks PA [facility] INTERVENTIONL RAD PRG CATH PLMT LEFT HEART CATH & ARTS W/INJ & ANGIO IMG S&I N/A 11/09/2022 CORONARY ANGIOGRAPHY; W [facility],POSSIBLE PCI (WRVU 5.6) performed by Mario Alberto Escobedo MD at [facility] CATH LABS PRG COMBINED RIGHT & LEFT HEART CATH W/INJ L VENTRICULOGRAPHY, IMG S&I N/A 05/12/2023 COMBINED RIGHT & LEFT HEART CATH,INC INJ FOR L VENTRICULOGRAPHY (WRVU 5.99) performed by Antelmo Sharma MD at [facility] CATH LABS PRO AORTOPLAS FOR SUPRAVALV STEN N/A 09/21/2016 @AORTOPLASTY FOR SUPRAVALVULAR STENOSIS (WRVU 29.33) performed by Alirio Hudson MD at [facility] MAIN OR PRO REPLACE AORTIC VALVE (TAVR/FEDERICO)PERC FEMORAL ARTERY APPROACH 05/12/2023 @TRANSCATHETER AORTIC VALVE REPLACEMENT (TAVR), PERCUTANEOUS FEMORAL (WRVU 22.47) performed by Alirio Hudson MD at [facility] CATH LABS PRO REPLACEMENT PROSTHETIC AORTIC VALVE OPEN W CARDIOPULMONARY BYPASS HOMOGRF/STENT N/A 09/21/2016 @REPLACE AORTIC VALVE, OPEN, W\CPB, W\PROSTHETIC VALVE (WRVU 41.32) performed by Alirio Hudson MD at [facility] MAIN OR Prior To Admission Medications Medications Prior to Admission Medication Sig Dispense Refill Last Dose atorvastatin (LIPITOR) 10 mg Tablet Take 10 mg by mouth daily. 05/07/2023 aspirin 81 mg EC tablet Take 81 mg by mouth daily. 05/07/2023 hydrOXYchloroQUINE (Plaquenil) 200 mg tablet Take 1 tablet by mouth daily. 90 tablet 12 Unknown nystatin (MYCOSTATIN) 100,000 unit/gram Powder Apply topically 2 times daily as needed. Unknown cyanocobalamin, Vitamin B-12, (Vitamin B-12) 1,000 mcg tablet Take 500 mcg by mouth daily. Unknown meloxicam (Mobic) 15 mg tablet Take 15 mg by mouth daily. Unknown dilTIAZem CD (Cardizem CD) 180 mg Capsule, Sust. Release 24 hr Take 180 mg by mouth daily. Unknown OneTouch Verio test strips Strip USE DAILY Unknown OneTouch Delica Plus Lancet 33 gauge Misc USE DAILY Unknown metroNIDAZOLE (METROGEL) 0.75 % Gel Apply every other day after washing as needed. (Patient not taking: Reported on 03/18/2023) 45 g 5 Unknown amoxicillin (AMOXIL) 500 mg Tablet Take 2,000 mg by mouth once as needed. Before dental Unknown losartan (Cozaar) 25 mg Tablet Take 25 mg by mouth daily. Unknown acetaminophen (TYLENOL) 500 mg Tablet Take 2 tablets by mouth every 6 hours as needed for Pain (Please take up to 1,000 mg every 6 hours when experiencing pain -05/11.). 30 tablet 5 Unknown spironolactone (ALDACTONE) 25 mg Tablet Take 0.5 tablets by mouth daily. Unknown multivitamin (THERAGRAN) Tablet Take 1 tablet by mouth daily. Unknown Updated Allergies/ADRs: No Known Allergies History of Presentation: Purnima Thacker is a 67 y.o. female with known prosthetic aortic stenosis s/p AVR [place] [address] Hudson in January and valve in valve TAVR was recommended. She has been experiencing dyspnea on exertion and fatigue for the past several months. These symptoms worsened acutely over the past week and she was admitted several days ago with a drop in EF to 25% from 55%. TAVR CT scans completed today. Cath in October showed mild LAD disease. +Orthopnea, PND, lightheadedness, chest pain, palpitations Denies syncope. Major Procedures/Operations: 05/12/23: Successful right transfemoral TAVR Fvphq-cy-Neioi with a 23 mm Lai 3 THV. Left coronary protection with left main MINNA. Hospital Course: #Severe prosthetic s/p valve in valve TF TAVR #Low coronary heights s/p left main stent for coronary protection #Type 2 NSTEMI, present on arrival, resolved #Acute decompensated HFrEF #Cardiogenic shock #EVANS / Cardiorenal syndrome Purnima Thacker was admitted to [facility] on 05/08/2023 via the Cardiology Service with worsening dyspnea and fatigue and known prosthetic . She had troponin leak without EKG changes c/w NSTEMI, type 2. Echo showed new drop in EF to 25% from 55%. She developed worsening heart failure symptoms despite diuresis. She was transferred to the CV and swan was placed which showed low cardiac output and rising PAP. She was started on levophed, vasopressin, and milrinone for cardiogenic shock. Her creatinine began to rise and she was oliguric despite bolus iv lasix. It was decided to proceed with urgent TAVR and she was brought to the blood bank laboratory technologist the following morning where Drs. Alirio Hudson and Antelmo Sharma and their teams performed a transfemoral TAVR and LM stent.She tolerated the procedure and was brought to the CV intubated and on the above drips. She was extubated from the ventilator on the day of surgery. All drips were weaned to off with satisfactory cardiac output. Routine postoperative and home medications were started and a diet was advanced. She showed no new bundle branch block and her groins were soft without hematoma. She was started on ticagrelor for herleft main stent and will continue this for one year. #EVANS Her creatinine manpreet to a peak of 5.6. Her urine output was marginal but recovered spontaneously on POD#3 when she began to respond to lasix. She did not require dialysis. Her creatine was normalized by time of discharge. Nephrology was consulted inpatient. She will follow up with Nephrology as an outpatient. Lasix was held and restarted on 05/19/23 at 20 PO daily. #Bilateral pleural effusions #Acute post op pulmonary insufficiency Pt was noted to have difficulty weaning from oxygen post op. CXR showed small bilateral pleural effusions R>L. By POD 5 she was able to wean off o2. A right pigtail was placed on POD#6 and removedon POD#7 due to pain. She has a small to mod left effusion but was asymptomatic. She will continue on lasix 20 PO daily until follow-up. #Transaminitis Her LFT's were elevated due to her cardiogenic shock. After TAVR her LFT's normalized. #Mixed connective tissue disease Hold home Meloxicam, Plaquenil due to kidney and liver though now stabilized will have PCP resume as outpatient. Oxy prn #HTN She was restarted on metoprolol. Her home losartan and diltiazem were held as she did not need these medications in her current state. #HLD Her statin was initially held due to her transaminitis. It was restarted once her LFT's normalized and she tolerated it well. She was seen by Physical Therapy and Cardiac Rehabilitation. Her discharge plan at this time is to discharge home with VNA/PT/OT services with her brother. The remainder of her hospital course was uneventful and by postoperative day #10 she had met all criteria for discharge. Anticoagulation Plan: Aspirin 81mg and Ticagrelor 90mg bid for one year Vital Signs at Discharge: Last set of vitals: BP 107/54 (BP Location (NBP): Left arm, Patient Position: Sitting) Pulse 95 Temp 37 ??C (98.6 ??F) Resp 19 Ht 154.9 cm (5' 0.98) Wt 75.1 kg (165 lb 8 oz) SpO2 98% BMI 31.29 kg/m?? Patient Vitals for the past 168 hrs: Weight 05/22/23 0500 75.1 kg (165 lb 8 oz) 05/21/23 0142 75.4 kg (166 lb 3.2 oz) 05/20/23 0223 75.9 kg (167 lb 5.3 oz) 05/19/23 0230 76.5 kg (168 lb 10.4 oz) 05/18/23 0205 76.9 kg (169 lb 8 oz) 05/17/23 0600 74.7 kg (164 lb 10.9 oz) 05/16/23 0400 78.1 kg (172 lb 2.9 oz) Current weight: 75.1 kg Admit/Preop weight: 74.5 kg Pertinent physical exam findings prior to discharge: General: Sitting in chair. NAD. Pleasant. Neuro: Awake and alert. No gross neurological deficit. Lungs: Non-labored respirations on RA Heart: RRR, SR on tele Abdomen: Soft Ext: WWP Groins: soft, no hematoma Important Studies and Lab Data: Lab Results Component Value Date WBC 7.4 05/16/2023 RBC 2.40 (L) 05/16/2023 HGB 7.8 (L) 05/16/2023 HCT 22.5 (L) 05/16/2023 PLATELET 120 (L) 05/16/2023 No results for input(s): INR in the last 168 hours. Lab Results Component Value Date NA 136 05/22/2023 K 3.6 05/22/2023 CL 102 05/22/2023 CO2 23 05/22/2023 BUN 21 (H) 05/22/2023 CREATININE 0.69 (L) 05/22/2023 Pending Studies and Lab Data: none Immunizations Given this Hospitalization: Immunization History Administered Date(s) Administered Influenza Vaccine, Unspecified Formulation 05/18/2016 Smoking Status at Discharge: Social History Tobacco Use Smoking Status Never Smokeless Tobacco Never Discharge Medications: Your Medications New Medications Dose Details furosemide 20 mg tablet Commonly known as: Lasix Take 1 tablet by mouth daily. Start taking on: May 23, 2023 20 mg Quantity: 90 tablet Refills: 3 metoproloL tartrate 25 mg tablet Commonly known as: Lopressor Take 1 tablet by mouth 2 times daily. 25 mg Quantity: 60 tablet Refills: 3 ticagrelor 90 mg tablet Commonly known as: Brilinta Take 1 tablet by mouth 2 times daily for 360 days. 90 mg Quantity: 180 tablet Refills: 3 Continued medications, unchanged Dose Details acetaminophen 500 mg tablet Commonly known as: Tylenol Take 2 tablets by mouth every 6 hours as needed for Pain (Please take up to 1,000 mg every 6 hours when experiencing pain -05/11.). 1,000 mg Quantity: 30 tablet Refills: 5 amoxicillin 500 mg tablet Commonly known as: Amoxil Take 2,000 mg by mouth once as needed. Before dental 2,000 mg Refills: 0 aspirin EC 81 mg EC (DR) tablet Take 81 mg by mouth daily. 81 mg Refills: 0 atorvastatin 10 mg tablet Commonly known as: Lipitor Take 10 mg by mouth daily. 10 mg Refills: 0 cyanocobalamin (Vitamin B-12) 1,000 mcg tablet Commonly known as: Vitamin B-12 Take 500 mcg by mouth daily. 500 mcg Refills: 0 hydroxychloroquine 200 mg tablet Commonly known as: Plaquenil Take 1 tablet by mouth daily. 200 mg Quantity: 90 tablet Refills: 12 multivitamin Tablet Commonly known as: THERAGRAN Take 1 tablet by mouth daily. 1 tablet Refills: 0 nystatin 100,000 unit/gram Powder Commonly known as: MYCOSTATIN Apply topically 2 times daily as needed. Refills: 0 OneTouch Delica Plus Lancet 33 gauge Misc USE DAILY Generic drug: lancets Refills: 0 OneTouch Verio test strips Strip USE DAILY Generic drug: blood sugar diagnostic strips Refills: 0 STOPPED Medications dilTIAZem CD 180 mg CD (ER) 24 hr casule Commonly known as: Cardizem CD losartan 25 mg tablet Commonly known as: Cozaar meloxicam 15 mg tablet Commonly known as: Mobic metroNIDAZOLE 0.75 % Gel Commonly known as: METROGEL spironolactone 25 mg tablet Commonly known as: Aldactone TAVR Discharge Instructions: Call your doctor if: You have a fever of greater than 101 degrees, shaking chills, if you develop redness or drainage from your procedure sites, or if you have questions. Please call your Sewer Head's office if you have any discharge or drainage from your procedural sites. Your Sewer Head, Dr. Antelmo Sharma and/or the Physician Aide may be reached at . Antibiotic prophylaxis: You will need to take antibiotics prior to many invasive tests and treatments, such as dental cleaning, which should be done every 6 months. Your primary care physician or your dentist can prescribe this medication. Please refer to the card with the [place] [employer] Guidelines for more information. You have been provided with a copy of this card. Please refer to the [place] [employer] Guidelines for more information. Good dental care is important for your overall health. We recommend waiting ~3 months before returning to your dentist except in cases of emergency. Activity level: Walk three times a day. You should continue to increase your walks by 1-2 minutes each day. It is expected that you will be walking 20-30 minutes twice a day within 3-4 weeks after discharge to home. Rest between activities and after meals. Use common sense, don't exhaust yourself. Home activities: You may resume your usual home activities such as housekeeping and chores; allowing time to rest as needed. Sexual activity: You may engage in sexual activity when you feel ready. Stairs: There are no restrictions on stair climbing. Use common sense. Don't exhaust yourself. Activities outside the home: After the first week home you may go out to dinner, visit friends, go to a movie, go to uatsdin, etc. Heavy activities: No hunting, skiing, jogging, snow shoveling, snowmobiling, lawn mowing, swimming,golf or tennis for 1 week after your procedure. Smoking: It is very important that you not smoke after your procedure. Smoking cessation education was provided as appropriate. If you need further assistance with this please call and you will be referred to a smoking cessation specialist. Medications: Take only those medications listed on your discharge information. Keep your pain undercontrol so you can be active, do your coughing and breathing exercises and sleep. Contact us if thepain medication isn't working for you. Do not take any herbal preparations until after your follow up appointment. Diet: You should follow a regular diet until your appetite returns to normal. At that point in timeyou should resume a low fat, low cholesterol, [place] [employer] Diet Driving: No restrictions. Shower/Bath: You may shower daily. No baths, soaking, or swimming for the first week. Wound care: Wash the sites daily with soap and rinse well, pat dry. Assess for any signs of infection such as increased redness, pain, warmth or drainage. Please call your livestock commission agent's office if you have any discharge or drainage from your procedural sites. If there is a lot of swelling, apply mamta wraps during the day and remove at bedtime. Elevate your legs when you are sitting. Home oxygen therapy: N/A Follow up appointments: Please schedule a follow-up appointment with your PCP, Magdalena Acosta MD, or Primary Installation And Service Technician in ~ 7-10 days. You have a follow-up appointment with your Sewer Head, Dr. Antelmo Sharma, in 2 weeks with an EKG, Echo, and labs prior to your appointment. You will need follow-up with Nephrology, their office will arrange. Dcdx-Zwqqdr-le interval: After initial 30 day follow-up appointment , all TAVR patients will follow-up again in one year with an echo. Cardiac Rehabilitation: Purnima Thacker was seen today regarding participation in the outpatient Phase 2 Cardiac Rehabilitation at [facility]. The patient agrees to a referral to this program. The referral will be sent at discharge and the patient should be contacted by the Program within 1- 2 weeks from discharge. Future Appointments and Orders Future Appointments and Orders Future Appointments Provider Department Dept Phone 07/29/2023 11:00 AM Magdalena Peralta MD [place] [facility] [place] [facility] [phone] 02/11/2024 2:00 PM Marek Bonilla MD Dermatology at [place] Arrive at: [facility] [address] [phone] Future Orders Complete By Expires Type and Screen Future Surgery, [facility] [place] ONLY) [[id number] Custom] 05/11/2023 Process Instructions: This test is intended ONLY for patients with upcoming surgery for testing prior to the day of surgery obtained through the same day program (4V or SDP). For ALL OTHER PATIENTS, order a Type and Screen (ATK151) This order includes the physician order for an ABO Recheck if requested by the Blood Bank. Scheduling Instructions: Comments: Questions: Date of surgery: CBC (with Diff) [SNM476 Custom] 06/05/2023 12/05/2023 Process Instructions: INCLUDES: WBC, RBC, Hgb, Hct, Platelets, RBC Indices and Differential Scheduling Instructions: Comments: Questions: Comprehensive metabolic panel (non-fasting) [LAB17 Custom] 06/05/2023 08/20/2023 Process Instructions: INCLUDES: Calcium, T Protein, Albumin, AST, ALT, Alk Phos, T Bili, BUN, Creat, GFR, Glucose, Lytes. Scheduling Instructions: Comments: Questions: Echocardiogram Transthoracic [38618 CPT(R)] 06/05/2023 12/05/2023 Process Instructions: Scheduling Instructions: Questions: Where will study be performed?: [facility] Does the patient have Congenital Heart Disease?: Does patient require sedation?: GA rationale: EKG 12 Lead [17063 CPT(R)] 06/05/2023 12/05/2023 Process Instructions: Scheduling Instructions: Questions: Which location will this be performed?: [place] Is a rhythm strip needed?: No [facility] [EQ161 Custom] As directed Process Instructions: Scheduling Instructions: Questions: Device Needed: WALKER (E0143) Patient Height (cm): 154.9 cm (5' 0.98) Patient Weight: 75.4 kg (166 lb 3.2 oz) Diagnosis: Unsteady gait when walking Referral to Cardiac Rehab [GBT588 Custom] As directed Process Instructions: If no progress note charted, please enter Clinical details in comments. Scheduling Instructions: Questions: My question or request is: s/p TAVR. Cardiac rehab at [facility]. Referral to Home Health [REF34 Custom] As directed Process Instructions: If no progress note charted, please enter Clinical details in comments. Scheduling Instructions: Comments: DOCUMENTATION FOR VNA SERVICES PATIENT'S LOCATION: Purnima Thacker [address] [place] [address] [phone] (home) Safety Person's Name: Irineo and brother Raymond In discussion with the attending physician, it is certified that this patient is under his/her careand that MD, or an [employer], MANAGER SUSTAINABILITY, or PA who is working directly with him/her, had a [id number] encounter that meets the physician ketp-ja-sfgb encounter requirements with this patient on 05/22/2023. The encounter with the patient was in whole, or in part, for the following medical condition, whichis the primary reason for home health care services: 67 y.o. female with cardiogenic shock 2/2 severe prosthetic aortic valve stenosis s/p valve in valve TF TAVR. In discussion with the provider, it is certified that, based on his/her findings, the following home services are medically necessary. HOME CARE ORDERS: PT ORDERS: Continue rehab for endurance, gait stability and strength with mobility and transfers. Home safety evaluation. Home exercise program if appropriate. OT ORDERS: Assess and continue rehabilitation for managing ADLs. HOME HEALTH CARE AGENCY: [facility] 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 Questions: Disciplines Requested: Physical Therapy Occupational Therapy Discharge References/Attachments None Arrangements for VNA/home care: As above. (delete if no VNA) Signed: EKATERINA NAVARRETE [facility] Section of Cardiac Surgery Date: 05/22/2023 CC: Magdalena Acosta MD HoneoyeMario Alberto MD [address] [place] [address] documented in this encounter Discharge Instructions * Patient Instructions* Vinod Juárez PA - 05/22/2023 9:32 AM EDT TAVR Discharge Instructions: Call your doctor if: You have a fever of greater than 101 degrees, shaking chills, if you develop redness or drainage from your procedure sites, or if you have questions. Please call your Sewer Head's office if you have any discharge or drainage from your procedural sites. Your Sewer Head, Dr. Antelmo Sharma and/or the Physician Aide may be reached at . Antibiotic prophylaxis: You will need to take antibiotics prior to many invasive tests and treatments, such as dental cleaning, which should be done every 6 months. Your primary care physician or your dentist can prescribe this medication. Please refer to the card with the [employer] [employer] Guidelines for more information. You have been provided with a copy of this card. Please refer to the [employer] [employer] Guidelines for more information. Good dental care is important for your overall health. We recommend waiting ~3 months before returning to your dentist except in cases of emergency. Activity level: Walk three times a day. You should continue to increase your walks by 1-2 minutes each day. It is expected that you will be walking 20-30 minutes twice a day within 3-4 weeks after discharge to home. Rest between activities and after meals. Use common sense, don't exhaust yourself. Home activities: You may resume your usual home activities such as housekeeping and chores; allowing time to rest as needed. Sexual activity: You may engage in sexual activity when you feel ready. Stairs: There are no restrictions on stair climbing. Use common sense. Don't exhaust yourself. Activities outside the home: After the first week home you may go out to dinner, visit friends, go to a movie, go to uatsdin, etc. Heavy activities: No hunting, skiing, jogging, snow shoveling, snowmobiling, lawn mowing, swimming,golf or tennis for 1 week after your procedure. Smoking: It is very important that you not smoke after your procedure. Smoking cessation education was provided as appropriate. If you need further assistance with this please call and you will be referred to a smoking cessation specialist. Medications: Take only those medications listed on your discharge information. Keep your pain undercontrol so you can be active, do your coughing and breathing exercises and sleep. Contact us if thepain medication isn't working for you. Do not take any herbal preparations until after your follow up appointment. Diet: You should follow a regular diet until your appetite returns to normal. At that point in timeyou should resume a low fat, low cholesterol, [employer] Diet Driving: No restrictions. Shower/Bath: You may shower daily. No baths, soaking, or swimming for the first week. Wound care: Wash the sites daily with soap and rinse well, pat dry. Assess for any signs of infection such as increased redness, pain, warmth or drainage. Please call your livestock commission agent's office if you have any discharge or drainage from your procedural sites. If there is a lot of swelling, apply mamta wraps during the day and remove at bedtime. Elevate your legs when you are sitting. Home oxygen therapy: N/A Follow up appointments: Please schedule a follow-up appointment with your PCP, Magdalena Acosta MD, or Primary Installation And Service Technician in ~ 7-10 days. You have a follow-up appointment with your Sewer Head, Dr. Antelmo Sharma, in 2 weeks with an EKG, Echo, and labs prior to your appointment. You will need follow-up with Nephrology, their office will arrange. Kuwe-Mnrpra-un interval: After initial 30 day follow-up appointment , all TAVR patients will follow-up again in one year with an echo. Cardiac Rehabilitation: Purnimamariza Thacker was seen today regarding participation in the outpatient Phase 2 Cardiac Rehabilitation at [facility]. The patient agrees to a referral to this program. The referral will be sent at discharge and the patient should be contacted by the Program within 1- 2 weeks from discharge. documented in this encounter Medications at Time of Discharge [...] daily. ticagrelor (Brilinta) 90 mg tablet Take 1 tablet by mouth 2 times daily for 360 days. 180 tablet 3 05/22/2023 05/27/2023 documented as of this encounter Progress Notes * Kia Gallego RN - 05/22/2023 10:43 AM EDT Discharge orders in. Pt eager to discharge. IVs and tele removed. Flu shot administered. AVS printed and reviewed with pt. Pt verbalized understanding. Helped pt gather personal belongings. Pt left unit in wheelchair accompanied by nurse. * Haven Ba, PT - 05/21/2023 3:40 PM EDT Physical Therapy Note Treatment Number PT: 3 Patient profile: Purnima Thacker is a 67 y.o. 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 PMH of s/p tissue AVR (2016), mixed connective tissue disease HTN, HLD, NICOLAS, diverticulosis, rosacea, essential tremor, and depression. 24h Events: Lasix 40 x 1, 4.6L u/o Cr improved 2.9 from 3.9 No bm since 05/10 Social History: Pt lives alone at baseline in a 1 level home with 3 stairs to enter. Flight of stairs to basement but she does not use. Her brother comes a few times a day to assist with wood stove in the basement. Pt was indep without a device at baseline. Drives. Precautions/Special Considerations: At risk to fall Mobility and Positioning Recommendations: Ambulate 3-4x/daily with nursing with rolling walker, room air, 1 assist OOB in chair for all meals Subjective: I ma going to call my Brother and see if he can stay for a few days until my friend arrives on . Objective: Patient seen for PT and demonstrated the following: Pain: none at rest; chest tightness with increased WOB; did not rate. Mental Status: alert, oriented, appropriate Vital Signs: SpO2: 95% on RA HR: 90's BP: 114/57 Pt sitting up in CC when PT arrived Sit to stand with supervision to rolling walker Ambulated 220 ft with rolling walker with supervision, no LOB Up and down 3 stairs with rail and cg assist x 1, no LOB Deep breathing; OPLB education. Sit to stand x 10 reps; rest breaks Assessment: Purnima is making daily gains and is mobilizing with supervision around the unit. She performed 3 stairs today with cg assist x 1. Vitals stable to day with ambulation and stairs. Walker beneficial for energy conservation and balance. Pt is safe for home d/c with supervision. Pt's friend arriving and pt to call her Brother to see if he can sty a few nights upon d/c. Anticipated Discharge Disposition (PT): Home with support from Brother and Friend Consult Recommendations: Home PT upon d/c Anticipated Equipment Needs at Discharge (PT):Rolling walker Goals to be achieved by 05/19/23--met Pt will ambulate at least 160' with supervision with least restrictive device. Pt will perform 3 stairs with rail, LRAD and supervision. Pt to mobilize on RA with SpO2>92% with all mobility Pt able to complete sit to stand test in 20 secs or below. Pt able to transfer supine<>sit with ease, HOB flat, no rail. Plan: Therapy Frequency (PT): 2-4 times/wk as outlined in initial evaluation. Patient agrees with plan as stated. Time IN / OUT: 300-328 Total Minutes, Physical Therapy: 28 m ins ( tef) Haven Ba, PT Pager: [phone] Physical Therapy Inpatient Rehabilitation Department * Nico Palacios PA - 05/21/2023 8:43 AM EDT Cardiac Surgery Progress Note Purnima Thacker is a 67 y.o. female with cardiogenic shock 2/2 severe prosthetic aortic valve stenosis who is 9 Days Post-Op valve in valve TF TAVR. PMH of s/p tissue AVR (2017), mixed connective tissue disease HTN, HLD, NICOLAS, diverticulosis, rosacea, essential tremor, and depression. 24h Events: Cr stable no events. Worked with PT/OT. S: Slept for a few hours. Feels good this morning. No complaints. No pain. Breathing ok. Ambulatingsome still feels weak and deconditioned. Denies pain, SOB, dizziness, nausea. O: Temp: [36.5 ??C (97.7 ??F)-37 ??C (98.6 ??F)] Heart Rate: [81-93] Resp: [15-21] BP: (94-104)/(51-59) SpO2: [95 %-99 %] Heart Rate from SpO2: -- 05/20 0701 - 05/21 0700 In: 510 [P.O.:510] Out: 1200 [Urine:1200] Admit weight: 76.4 kg Current weight: Weight: 75.4 kg (166 lb 3.2 oz) Physical Exam: General: Sitting in chair. Pleasant. Neuro: Awake and alert. No gross neurological deficit. Lungs: Non-labored respirations on RA, diminished bases. Heart: rrr, no mrg Abdomen: Soft, NTND +bs Ext: WWP, no edema Groins: soft, no hematoma, mild ecchymosis Tubes/Lines/Drains: PIV Assessment/Plan: 67 y.o. female 9 Days Post-Op Janet TF TAVR for prosthetic . Medically ready for rehab. #Severe prosthetic AV stenosis s/p Janet TF TAVR #Cardiogenic shock #Acute HFrEF #s/p LM stent placement ASA 81 daily Ticagrelor - will continue for 1 year Lopressor 12.5 bid EKG stable PT/OT following, deconditioned #HLD Previously holding Lipitor for given transaminitis Since resumed atorvastatin 10 daily #HTN Hold home Losartan and Diltiazem Metoprolol 12.5 bid #Mixed connective tissue disease Hold home Meloxicam, Plaquenil due to kidney and liver though now stabilized will have PCP resume as outpatient. Oxy prn #Oliguric EVANS - resolved Secondary to cardiogenic shock and DYLAN Lasix 20 po daily Avoid nephrotoxic drugs Nephrology recs appreciated, signed off #Transaminitis LFTs trending down #Pleurisy #Small bilateral pleural effusions Small bilateral pleural effusions d/t cardiogenic shock. S/p right pigtail, removed 05/19. Oxy prn. Hold NSAIDS given recent EVANS Disposition: Floor Status, Full Code, looking at rehab options Discussed with attending surgeon on rounds this morning. EKATERINA KIM 05/21/2023 Between the hours of 1800 - 0600 and on the weekends please page [phone]. * Jory Paniagua - 05/20/2023 3:52 PM EDT Nutrition Services Note - Low Nutrition Acuity Purnima Thacker is a 67 y.o. female Reason for intervention: follow up Nutrition Plan: Continue diet order Monitor good PO Lasix noted Monitor weight Patient scheduled for a follow up nutrition evaluation. Chart reviewed. Per documentation patient has excellent PO intakes recorded at 75-100% over the past 4 days. According to dining services software they have ordered btwn 1218- 2028kcals/day within the same duration. Pt is tolerating diet per RNnote. Weight loss observed, not c/s, diuretic noted. Please update and trend wts to allow for ongoing assessment of weight changes. Clinical Nutrition to monitor and follow. Active Orders Diet Regular diet Frequency: Effective Now Number of Occurrences: Until Specified Admit Weight: 76.4 kg Estimated body mass index is 31.63 kg/m?? as calculated from the following: Height as of this encounter: 154.9 cm (5' 0.98). Weight as of this encounter: 75.9 kg (167 lb 5.3 oz). Wt Readings from Last 5 Encounters: 05/20/23 75.9 kg (167 lb 5.3 oz) 04/27/23 78.1 kg (172 lb 3.2 oz) 03/31/23 79.4 kg (175 lb) 03/18/23 78.8 kg (173 lb 13.3 oz) 07/19/23 79.8 kg (176 lb) *The following information was obtained via pt chart* Weight loss: not clinically significant Appetite: Excellent (75%-100%) Food allergies:no known food allergies Chewing/Swallowing difficulty: none Nausea/Vomiting: no nausea and no vomiting Last Bowel Movement: 05/20/23 oJry Paniagua Events Administrative Assistant * Tong Mike, OT - 05/20/2023 3:16 PM EDT Occupational Therapy Evaluation Patient profile: Purnima Thacker is a 67 y.o. female admitted on 05/08/2023with cardiogenic shock 2/2 severe prosthetic aortic valve stenosis who is 5 Days Post-Op valve in valve TF TAVR. PMH of s/p tissue AVR (2016), mixed connective tissue disease HTN, HLD, NICOLAS, diverticulosis, rosacea, essential tremor, and depression. Past Medical History: Diagnosis Date Anemia Past Surgical History: Procedure Laterality Date IR CHEST TUBE PLACEMENT RIGHT 05/18/2023 IR Chest Tube Placement Right 05/18/2023 Laure Ricks PA [facility] INTERVENTIONL RAD PRG CATH PLMT LEFT HEART CATH & ARTS W/INJ & ANGIO IMG S&I N/A 11/09/2022 CORONARY ANGIOGRAPHY; W C,POSSIBLE PCI (WRVU 5.6) performed by Mario Alberto Escobedo MD at [facility] CATH LABS PRG COMBINED RIGHT & LEFT HEART CATH W/INJ L VENTRICULOGRAPHY, IMG S&I N/A 05/12/2023 COMBINED RIGHT & LEFT HEART CATH,INC INJ FOR L VENTRICULOGRAPHY (WRVU 5.99) performed by nAtelmo Sharma MD at [facility] CATH LABS PRO AORTOPLAS FOR SUPRAVALV STEN N/A 09/21/2016 @AORTOPLASTY FOR SUPRAVALVULAR STENOSIS (WRVU 29.33) performed by Alirio Hudson MD at [facility] MAIN OR PRO REPLACE AORTIC VALVE (TAVR/FEDERICO)PERC FEMORAL ARTERY APPROACH 05/12/2023 @TRANSCATHETER AORTIC VALVE REPLACEMENT (TAVR), PERCUTANEOUS FEMORAL (WRVU 22.47) performed by Alirio Hudson MD at [facility] CATH LABS PRO REPLACEMENT PROSTHETIC AORTIC VALVE OPEN W CARDIOPULMONARY BYPASS HOMOGRF/STENT N/A 09/21/2016 @REPLACE AORTIC VALVE, OPEN, W\CPB, W\PROSTHETIC VALVE (WRVU 41.32) performed by Alirio Hudson MD at [facility] MAIN OR Social History: Patient lives alone. Home Setup: Pt lives on one level with tub shower and three steps to enter. DME: none used PUBLICITY WRITER Baseline ADL/Mobility: Independent with ADLs and IADLs. Pt enjoys scrabble and reading. Precautions/Special Considerations: fall risk Subjective: Can I walk again? I thought of getting the life line thing. Objective: Seen today for OT evaluation. Cognitive Status/Behavior: Behavior / Mood: alert and cooperative Alert and oriented to: person, place, and date Follows commands: 100% of the time Attention: WFL Safety awareness: WFL Vision & Perception: corrective lenses floor covering layer Communication: WFL Range of motion, strength, coordination: Hand dominance: left Bilateral UEs are within functional limitations AROM Sensation: Intact Activities of Daily Living: Self-feeding: Independent after set-up Dressing: Pt able to don pants SBA. Grooming: Standing at sink to brush teeth SBA Functional Mobility: Sit to stand: SBA Ambulation: Mobilized with FWW around unit SBA (130 feet) Transferring to/from toilet standing at sink by reaching for items CTG A Stand to sit: SBA Balance: Sitting balance: Good Standing balance:Fair+ with FWW Vitals: At Rest With Activity SpO2 98% 94% Heart Rate 101 104 Pain: Pt did not c/o pain during session Skin: intact Education: patient have been educated on Role of occupational therapy/rehabilitation, Transfers, Assistive device/technique, Adaptive equipment training, ADL, Safety, Functional Mobility, Activity pacing/Energy conservation, Recommendations, and Discharge planning and needs reinforcement. understanding. Patient status, treatment, and mobility recommendations discussed with nursing. Assessment: Pt has been seen for occupational therapy evaluation. Purnima M Kirstie presents with the following performance skill deficits and client factors: decreased activity tolerance, decreased sitting/standing balance, and deconditioning. These performance deficits have led to activity limitations and participation restrictions in the following areas of occupation: dressing, bathing, toileting, transfers/mobility, home management, driving, and community mobility. Pt mobilizing with FWW SBA, however will benefit from more assistance for home management tasks and higher level ADLs due to fatigue. She will benefit from instruction of energy conservation for ADLS/IADLS. Pt would benefit from further inpatient OT interventions to address performance deficits and maximize participation and independencewith occupations of daily living. Equipment Recommendations: Equipment Needs Upon Discharge (OT): walker, front wheeled, shower chair Anticipated Discharge Disposition (OT): swing bed rehabilitation facility, detention facility(vs home with support for IADLs) Other Recommendations: Utilize upright chair position using bed features or transfer to recliner chair as appropriate withSBA with FWW, ambulate as tolerated Encourage participation in ADL's by providing set up A on tray table and physical assist only as needed Other Recommendations: No other consults recommended at this time Goals: To be achieved by 06/01/23. Patient shower or sponge bathe supervision sit/stand at sink/shower. Patient will verbalize 2-3 fall prevention techniques for ADLS/IADLs Patient will mobilize house hold distances Mod I with FWW. Patient will perform simple kitchen mgt with appropriate assistive device as needed and supervision. Patient will ambulate to the bathroom with supervision, assistive device as needed. Patient will demonstrate energy conservation principals with all ADLs indep. Plan: OT: Therapy Frequency (OT): 2-3 times/wk Planned OT interventions: Role of occupational therapy/rehabilitation, Transfers, Assistive device/technique, Adaptive equipment training, ADL, Safety, Functional Mobility, Activity pacing/Energy conservation, Home Management, Balance, Recommendations, and Discharge planning. Total Minutes, Occupational Therapy: 28 ([id number]) OT Evaluation Code Rationale: Diagnosis & Pertinent Co-Morbidities affecting Plan of Care: see PMHx Occupational Profile & Client History: Brief Expanded Extensive x Assessment of Occupational Performance: 1-3 performance deficits 3-5 performance deficits x 5 + performance deficits Clinical Decision Making: Low Moderate High x Clinical decision making of moderate complexity using standardized patient assessment instrument and measurable assessment of functional outcome. Pager: [phone] TONG MIKE OT 05/20/2023 Occupational Therapy Rehabilitation Department * Noreen Huang PA - 05/20/2023 10:15 AM EDT Cardiac Surgery Progress Note Purnima M Kirstie is a 67 y.o. female with cardiogenic shock 2/2 severe prosthetic aortic valve stenosis who is 8 Days Post-Op valve in valve TF TAVR. PMH of s/p tissue AVR (2017), mixed connective tissue disease HTN, HLD, NICOLAS, diverticulosis, rosacea, essential tremor, and depression. 24h Events: Cr stable, lasix 20 po daily resumed Right pigtail drain removed NSR, hemodynamically stable S: Slept for a few hours. No complaints this morning. Denies pain, SOB, dizziness, nausea. O: Temp: [36.6 ??C (97.9 ??F)-37.2 ??C (99 ??F)] Heart Rate: [90-103] Resp: [17-22] BP: (103-116)/(50-73) SpO2: [94 %-98 %] Heart Rate from SpO2: -- 05/19 0701 - 05/20 0700 In: 840 [P.O.:840] Out: 1350 [Urine:1050] Admit weight: 76.4 kg Current weight: Weight: 75.9 kg (167 lb 5.3 oz) Physical Exam: General: Sitting in chair. Pleasant. Neuro: Awake and alert. No gross neurological deficit. Lungs: Non-labored respirations on RA, diminished bases. Heart: rrr, no mrg Abdomen: Soft, NTND +bs Ext: WWP, no edema Groins: soft, no hematoma, mild ecchymosis Tubes/Lines/Drains: PIV, rt pigtail Assessment/Plan: 67 y.o. female 8 Days Post-Op Janet TF TAVR for prosthetic . Medically ready for rehab. #Severe prosthetic AV stenosis s/p Janet TF TAVR #Cardiogenic shock #Acute HFrEF #s/p LM stent placement ASA 81 daily Ticagrelor - will continue for 1 year Lopressor 12.5 bid EKG stable PT following, deconditioned #HLD Previously holding Lipitor for given transaminitis Since resumed atorvastatin 10 daily #HTN Hold home Losartan and Diltiazem Metoprolol 12.5 bid #Mixed connective tissue disease Hold home Meloxicam, Plaquenil Oxy prn #Oliguric EVANS - resolved Secondary to cardiogenic shock and DYLAN Lasix 20 po daily Avoid nephrotoxic drugs Nephrology recs appreciated, signed off #Transaminitis LFTs trending down #Pleurisy #Small bilateral pleural effusions Small bilateral pleural effusions d/t cardiogenic shock. S/p right pigtail, removed 05/19. Oxy prn. Hold NSAIDS given recent EVANS Disposition: Floor Status, Full Code, looking at rehab options Discussed with attending surgeon on rounds this morning. EKATERINA Farley 05/20/2023 Between the hours of 1800 - 0600 and on the weekends please page [phone]. * Rylie Rodriguez MD - 05/19/2023 3:59 PM EDT NEPHROLOGY PROGRESS NOTE PATIENT: Purnima Thacker : 1955 Interval History: Ms. Thacker is a 67 yo F with PMH of 7 days s/p TAVR (with hx of tissue AVR in 2017) and HTN who is being followed by nephrology for EVANS with unknown baseline iso contrast and TAVR. Lasix continues to be held. Patient underwent placement of a right pigtail on 05/18 - this was removed today due to patient discomfort. The patient was seen and examined at bedside. She has no acute concerns today. Intake and output as charted: May 18 - May 19 Intake: PO 1840 mL IV piggyback 4 mL Total 1844 mL Output: Urine 1950 mL Chest tube 25 mL Total 1975 mL Net: -131 mL Creatinine trend since last 12 days: Recent Labs 05/19/23 0549 05/18/23 0254 05/17/23 0435 05/16/23 1722 05/16/23 0420 05/15/23 0050 05/14/23 0110 05/13/23 0115 05/12/23 0600 05/12/23 0105 05/11/23 0442 05/10/23 0228 05/09/23 0400 05/08/23 1138 03/18/23 1414 CREATININE 1.02 1.64* 2.97* 3.91* 4.74* 5.62* 4.80* 3.15* 2.01* 1.86* 1.24* 0.90 1.03 1.02 0.99 PHYSICAL EXAM: Last value Temperature Temp: 37.1 ??C (98.8 ??F) Heart Rate Heart Rate: 91 Blood Pressure BP: 113/54 Respiratory Rate Resp: 19 SpO2 SpO2: 96 % General - Well-appearing. NAD. Appears stated age Respiratory - Lungs are clear to auscultation bilaterally. No rhonchi, wheezes, or rales Cardiovascular - RRR. No murmurs, rubs, or gallops Abdomen - Soft, non-tender, non-distended Extremities - No pitting edema in bilateral LE Psychiatric - Appropriate mood and affect Neurological - No evident focal neurologic deficits Latest Reference Range & Units 05/18/23 02:54 05/19/23 05:49 Sodium 135 - 145 mmol/L 137 138 Potassium 3.5 - 5.0 mmol/L 3.7 3.9 Chloride 98 - 107 mmol/L 100 102 CO2 22 - 31 mmol/L 24 26 Anion Gap 5 - 15 mmol/L 13 10 BUN 8 - 18 mg/dL 71 (H) 45 (H) Creatinine 0.70 - 1.20 mg/dL 1.64 (H) 1.02 Estimated GFR >=60 mL/min/1.73 m?? 34 (L) 60 Calcium 8.5 - 10.5 mg/dL 9.7 9.7 Glucose Lvl 65 - 199 mg/dL 95 93 Assessment and Plan: Ms. Thacker is a 67 yo F with PMH of 7 days s/p TAVR (with hx of tissue AVR in 2017) and HTN who is being followed by nephrology for EVANS with unknown baseline iso contrast and TAVR. BUN, Cr, and GFRcontinue to improve. Urine output is adequate. Lytes continue to be WNL. Overall, patient's renal function has improved. Ms. Thacker will require establishment of nephrology outpatient care at time of discharge. Nephrology will sign off. Please page if further consultation required. Rylie Rodriguez MD, MPH Internal Medicine, PGY-1 Nephrology Service Associated attestation - Cynthia Blackburn MD - 05/20/2023 12:51 PM EDT The patient was seen and examined with the resident, Dr. Rodriguez. Please see the resident's note from today for details. I have reviewed the resident's note and agree with the exam, and assessment and plan. Cynthia Blackburn MD Nephrology Pager: [phone] * Diana Espino - 05/19/2023 1:49 PM EDT Physical Therapy Aides Teacher Encounter Note Patient Name: Purnima Thacker : [id number] MR#: [id number] Admit Date: 05/08/2023 9:14 AM Hospital Day 11 days Narrative: Self initiated visit to patient for Spiritual support in a regular unit rounds. Assessment: Patient is sitting in a chair having her lunch at the time of this visit. Patient is very friendly and receptive. Patient looks bright and cheerful. Patient is feeling better. Patient says, her lunchis delicious. Patient expresses appreciation for the care she receives from her caregivers. Patient says, she is very much impressed and realizes that open heart surgery is easier than valve procedure. Intervention and Outcome: I offered patient Pastoral presence, Empathetic listening, acknowledgement, validation, Spiritual/Emotional support and encouragement. I brought to patient peace, comfort, compassion and consolation.Patient expressed appreciation. Follow-up: As needed. Time in Direct Care: 15 Diana Espino 05/19/2023 * Henrik Navarrete PTA - 05/19/2023 1:41 PM EDT Physical Therapy Note Treatment Number PT: 3 Patient profile: Purnima Thacker is a 67 y.o. 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 PMH of s/p tissue AVR (2017), mixed connective tissue disease HTN, HLD, NICOLAS, diverticulosis, rosacea, essential tremor, and depression. 24h Events: Cr improved to 1.02 Rt pigtail placed for pleural effusion +BM CT Removed (AM on 05-19(Fly)) Social History: Pt lives alone at baseline in a 1 level home with 3 stairs to enter. Flight of stairs to basement but she does not use. Her brother comes a few times a day to assist with wood stove in the basement. Pt was indep without a device at baseline. Drives. Precautions/Special Considerations: At risk to fall; Milrinone; Mobility and Positioning Recommendations: Ambulate 3-4x/daily with nursing with rolling walker, room air, 1 assist OOB in chair for all meals Subjective: I feel so much better than when Loli saw me. Objective: Patient seen for PT and demonstrated the following: Pain: Pt c/o R posterior lower chest wall discomfort, in areas of quadratus lumborum insertion medially, R upper chest discomfort Mental Status: alert, oriented, appropriate Vital Signs: SpO2: 97% on RA HR:92 BP: 106/59 rest; Pt seen x 2 for PT, first time interrupted with need to go to Xray, second not pt up in cc after eating very agreeable to PT. Seated balance-good throughout, standing static and dynamic - good with fww Gait: fair gait mechanics, stiffness has resolved, short step length but not shuffling, cues for walker mgt for approaching chairs, ~50' x 3 times with 3 minute seated rest breaks, fww, sba, no overtlob Seated therex of seated marching, and laq for warmup both x 10 B Sit stand x 8 to fww, sba with cues for technique Stand sit - same with cues for controlled eccentric lowering Pt left in bedside recliner chair with all needs met in c/o SN Education: postural exercises, relaxation exs, talked about d/c planning (pt agreeable to rehab), ad use Assessment: Purnima Thacker was seen today for physical therapy treatment session for continuation of POC. Pt tolerated treatment well and showed little or no signs of anxiety or guarding reported inlast treatment. Likely 2/2 removal of chest tube and generally more relaxed. She did well with ambulation but stairs were not attempted. She still reports pain in above noted areas and Pt agrees to areferral for short term rehab placement to address her needs prior to returning home alone. Anticipated Discharge Disposition (PT): detention facility, swing bed rehabilitation facility Consult Recommendations: OT consult Goals to be achieved by 05/19/23 Pt will ambulate at least 160' with supervision with least restrictive device. Pt will perform 3 stairs with rail, LRAD and supervision. Pt to mobilize on RA with SpO2>92% with all mobility Pt able to complete sit to stand test in 20 secs or below. Pt able to transfer supine<>sit with ease, HOB flat, no rail. Plan: Therapy Frequency (PT): 2-4 times/wk as outlined in initial evaluation. Patient agrees with plan as stated. Total Minutes, Physical Therapy: 38 ([phone]) Henrik Navarrete, PUBLICITY WRITER Pager: [phone] Physical Therapy Inpatient Rehabilitation Department * Nico Palacios PA - 05/19/2023 8:28 AM EDT Cardiac Surgery Progress Note Purnima Thacker is a 67 y.o. female with cardiogenic shock 2/2 severe prosthetic aortic valve stenosis who is 7 Days Post-Op valve in valve TF TAVR. PMH of s/p tissue AVR (2017), mixed connective tissue disease HTN, HLD, NICOLAS, diverticulosis, rosacea, essential tremor, and depression. 24h Events: Cr improved to 1.02 Rt pigtail placed for pleural effusion +BM S: Doing ok. Lots of pain where pigtail is. Hurts to breathe and move. Shen diet. +flatus, + bm. Will work with PT today if pain improves, glad to hear her pigtail is coming out now. Thinks this will help a lot. Denies n/v, fever, chills, SOB, Abd pain. O: Temp: [36.7 ??C (98 ??F)-37.3 ??C (99.1 ??F)] Heart Rate: [91-114] Resp: [14-27] BP: (89-123)/(52-72) SpO2: [93 %-98 %] Heart Rate from SpO2: -- 05/18 0701 - 05/19 0700 In: 1844 [P.O.:1840] Out: 1974 [Urine:1950] Admit weight: 76.4 kg Current weight: Weight: 76.5 kg (168 lb 10.4 oz) Physical Exam: General: Sitting in chair. Pleasant. Neuro: Awake and alert. No gross neurological deficit. Lungs: Non-labored respirations on RA, CTABL diminished bases. Rt pigtail serous discharge. Heart: rrr, s1s2 no mrg Abdomen: Soft, NTND +bs Ext: WWP, no edema Groins: soft, no hematoma, right groin ecchymotic, nontender Tubes/Lines/Drains: PIV, rt pigtail Assessment/Plan: 67 y.o. female 7 Days Post-Op Janet TF TAVR for prosthetic . Medically ready for rehab. #Severe prosthetic AV stenosis s/p Janet TF TAVR #Cardiogenic shock #s/p LM stent placement ASA 81' Ticagrelor - will continue for 1 year Lopressor 12.5 tid EKG stable Regular diet RBOs Wean NC as tolerated to maintain SpO >92%, pulm toilet PT consult for deconditioned state #HLD Holding Lipitor for given transaminitis LFT's improved will restart #HTN Hold home Losartan and Diltiazem BB 12.5 tid #Mixed connective tissue disease Hold home Meloxicam, Plaquenil Oxy prn #Oliguric EVANS - improving Secondary to cardiogenic shock and DYLAN Holding lasix for now; autodiuresing. Daily BMP. Avoid nephrotoxic drugs Consulted nephrology, appreciate recs #Transaminitis Repeat LFTs today improved #Pleurisy #Small bilateral pleural effusions Small bilateral pleural effusions d/t cardiogenic shock. R>L effusion on CXR. Drainage of right pleural effusion will d/c pigtail now. Post pull cxr. Oxy prn. Hold NSAIDS given EVANS Disposition: Floor Status, Full Code Attempt Cardiopulmonary Resuscitation - Inpatient Discussed with attending surgeon on rounds this morning. EKATERINA KIM 05/19/2023 Between the hours of 1800 - 0600 and on the weekends please page [phone]. * Laure Ricks PA - 05/19/2023 7:56 AM EDT Images from the original note were not included. Interventional Radiology Inpatient Progress Note Admitted 05/08/2023 Procedure(s): Right chest tube placement Post-procedure day: #1 24 Hour Events: No acute events overnight. Last Value 24 Hour Range Temperature 37.3 ??C (99.1 ??F) Temp: [36.7 ??C (98 ??F)-37.3 ??C (99.1 ??F)] Heart Rate 95 Heart Rate: [91-114] Blood Pressure 123/71 BP: (89-123)/(52-72) Respiratory Rate 18 Resp: [14-27] SpO2 94 % SpO2: [93 %-98 %] Drains/Tubes (drainage over 24 hours) -R chest tube- 25 cc Labs: Reviewed-- Recent Labs 05/16/23 0420 05/15/23 0050 05/14/23 0110 WBC 7.4 9.1 11.2* HGB 7.8* 7.2* 7.2* HCT 22.5* 20.6* 20.3* PLATELET 120* 109* 112* Imagin05/18/23 Assessment: 67 y.o. female with PMH of aortic stenosis currently admitted following TAVR POD #7 with R pleural fluid s/p R chest tube placement POD #1. R chest tube removed this AM for patient discomfort at the insertion site. R chest tube was functioning well until removal. Patient is pending CXR to follow-up on R pleural fluid collection. Plan: IR will sign-off after reviewing CXR. Please page with further questions and concerns. Laure Ricks PA-C Interventional Radiology IR Team Pager [phone] * Consuelo Espinoza RN - 05/18/2023 4:13 PM EDT ANGIO NURSING DATABASE Name: Purnima Thacker Date of : 1955 AGE: 67 y.o. [address]: [address] [place] [id number] (home) Mobile: No relevant phone numbers on file. Referring Provider: Mario Alberto Chin REASON FOR VISIT: Order Questions Answers Is the patient on anticoagulant / antiplatelet therapy ? Aspirin,DOAC (Direct Oral Anticoagulant) Reason for exam and clinical history: s/p tavr, enlarging right effusion please place pigtail catheter Exam/Procedure requested: right pigtail Requested Date 05/18/23 Requested Time 8:11 AM Is the patient taking any anticoagulants and/or antiplatelet meds? Yes Is patient awake, alert, and consentable? Yes Does patient need assist to stand? Yes Does Patient have any mobility limitations (e.g. spinal precautions) No Does patient require constant supervision? No Is patient over 450 lbs (200 kg) No Does patient have a pacemaker? No Does patient have a Chest Tube? No Is there a language / communication barrier? No Planned procedure: Right chest tube placement Labs to be performed day of procedure: No labs Sedation: Fentanyl only Prophylactic antibiotic : None Contrast: No contrast Additional medications for procedure: Lidocaine Consent: Pending Medications to discontinue (and days held): None Case Urgency:: D- Intervention within 24 hrs No Known Allergies Pertinent PMH: Patient Active Problem List Diagnosis Code Chronic [...] fraction I35.0 Mild coronary artery disease by [facility] 11/09/2022 I25.10 Heart failure with reduced ejection fraction due to heart valve disease I50.20, I38 Cardiogenic shock R57.0 S/P TAVR (transcatheter aortic valve replacement) Z95.2 Date/Procedure Meds Given/Comments No prior hx found 05/18/2023 Right side Chest Tube Placement Fentanyl 50mcg 1604 to procedure room 4 via stretcher. Onto table sitting. All monitors. Meds per protocol. Laboratory Results: Lab Results Component Value Date INR 1.3 05/13/2023 Lab Results Component Value Date CREATININE 1.64 (H) 05/18/2023 Lab Results Component Value Date K 3.7 05/18/2023 Lab Results Component Value Date PLATELET 120 (L) 05/16/2023 * Rylie Rodriguez MD - 05/18/2023 3:41 PM EDT NEPHROLOGY PROGRESS NOTE PATIENT: Purnima Thacker : 1955 Interval History: Ms. Thacker is a 67 yo F with PMH of 6 days s/p TAVR (with hx of tissue AVR in 2017) and HTN who is being followed by nephrology for EVANS with unknown baseline iso contrast and TAVR. Lasix is currently being held per primary team. Patient was seen and examined at bedside. She denies SOB today. She states she has had pain under her left breast that has not changed. She denies any other concerns today. Intake and output as charted: May 17 - May 18 Intake: PO 990 mL IV 11.6 mL Total 1,001.6 mL Output: Urine 1600 mL Total 1600 mL Net: -598.4 mL Creatinine trend since last 11 days: Recent Labs 05/18/23 0254 05/17/23 0435 05/16/23 1722 05/16/23 0420 05/15/23 0050 05/14/23 0110 05/13/23 0115 05/12/23 0600 05/12/23 0105 05/11/23 0442 05/10/23 0228 05/09/23 0400 05/08/23 1138 03/18/23 1414 CREATININE 1.64* 2.97* 3.91* 4.74* 5.62* 4.80* 3.15* 2.01* 1.86* 1.24* 0.90 1.03 1.02 0.99 PHYSICAL EXAM: Last value Temperature Temp: 36.7 ??C (98 ??F) Heart Rate Heart Rate: 100 Blood Pressure BP: 111/61 Respiratory Rate Resp: 16 SpO2 SpO2: 96 % General - Well-appearing. NAD. Appears stated age Respiratory - Lungs are clear to auscultation bilaterally. No rhonchi, wheezes, or rales Cardiovascular - RRR. No murmurs, rubs, or gallops Abdomen - Soft, non-tender, non-distended Extremities - No pitting edema in bilateral LE Psychiatric - Appropriate mood and affect Neurological - No evident focal neurologic deficits Latest Reference Range & Units 05/17/23 04:35 05/18/23 02:54 Sodium 135 - 145 mmol/L 135 137 Potassium 3.5 - 5.0 mmol/L 4.1 3.7 Chloride 98 - 107 mmol/L 97 (L) 100 CO2 22 - 31 mmol/L 22 24 Anion Gap 5 - 15 mmol/L 16 (H) 13 BUN 8 - 18 mg/dL 97 (H) 71 (H) Creatinine 0.70 - 1.20 mg/dL 2.97 (H) 1.64 (H) Estimated GFR >=60 mL/min/1.73 m?? 17 (L) 34 (L) Calcium 8.5 - 10.5 mg/dL 9.6 9.7 Glucose Lvl 65 - 199 mg/dL 89 95 Total Protein 6.1 - 8.0 g/dL 6.5 Albumin 3.2 - 5.2 g/dL 3.7 Total Bilirubin 0.2 - 1.3 mg/dL 0.6 Alk Phos 35 - 105 unit/L 86 AST 0 - 30 unit/L 58 (H) ALT 0 - 30 unit/L 66 (H) Assessment and Plan: Ms. Thacker is a 67 yo F with PMH of 6 days s/p TAVR and HTN who is being followed by nephrology for EVANS with unknown baseline iso contrast and TAVR. BUN, Cr, and GFR are improving. Urine output between May 17- (with no Lasix administration) was 0.9 mL/kg/hr which is adequate. Lytes are WNL. We will continue to monitor to assess where Cr will stabilize. Ms. Thacker will require establishment of nephrology outpatient care at time of discharge. Rylie Rodriguez MD, MPH Internal Medicine, PGY-1 Nephrology Service Associated attestation - Cynthia Blackburn MD - 05/19/2023 1:06 PM EDT The patient was seen and examined with the resident, Dr. Rodriguez. Please see the resident's note from today for details. I have reviewed the resident's note and agree with the exam, and assessment and plan. Cynthia Blackburn MD Nephrology Pager: [phone] * Khushi Magdalena Radha, BUSINESS SERVICES ANALYST - 05/18/2023 10:51 AM EDT Images from the original note were not included. [place] [address] [address] STRUCTURAL HEART DISEASE CONSULTATION NOTE PRIMARY CARE PROVIDER: Magdalena Acosta MD REFERRING PROVIDER: Mario Alberto Chin REASON FOR CONSULTATION: Bioprosthetic aortic valve stenosis HISTORY OF PRESENT ILLNESS: Patient ID: Purnima Thacker is a 67 y.o. 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 She is now status post TAVR [id number]-Adygf with a 23 mm Lai 3 THV 05/12/[address] Sharma. Preliminary findings: Successful right transfemoral TAVR Afggy-qp-Uobjn with a 23 mm Lai 3 THV. [...] result with ARNEL-3 flow and no residual dissection or perforation. Interval Events: - 05/12 Transferred to [facility] post- TAVR for pressor/inotropic support (Levo, vaso, epi, milrinone gtts) - 05/12/ Extubated 1600 - 05/12 Decreased u/o overnight s/p gentle colloid resuscitation with good effect - Milrinone 0.125 - weaned 05/16 - U/O neg 500 - H/H 7.8--> 9.7 on blood gas 05/16 - Cr 1.86-->peak 5.62 now downtrending 1.64 - EKG this morning NSR, stable Naresh/QRSi 05/13 - Live enzymes improving - IR consulted for pigtail placement of R pleural effusion PROBLEM LIST: Patient Active Problem List Diagnosis S/P TAVR (transcatheter aortic valve replacement) Cardiogenic shock Symptomatic severe aortic stenosis with low ejection fraction Mild coronary artery disease by [facility] 11/09/2022 Heart failure with reduced ejection fraction due to heart valve disease Mixed connective tissue disease Neck pain Diverticulosis Hyperlipidemia, unspecified Rosacea 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, 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) Aortic stenosis Chronic idiopathic neutropenia NICOLAS (obstructive sleep apnea) Depressive disorder Essential tremor Obesity Essential hypertension MEDICATIONS: Current Facility-Administered Medications Medication Dose Route Frequency Provider Last Rate Last Admin polyethylene glycoL (Miralax) packet 17 g 17 g Oral Daily Mara Serrano APRN 17 g at 05/17/23 0820 sodium chloride 0.9 % (flush) (BD PosiFlush Normal Saline 0.9) flush 5 mL 5 mL Intravenous Q8H Mara Serrano APRN 5 mL at 05/18/23 0831 atorvastatin (Lipitor) tablet 10 mg 10 mg Oral QPM Mara Serrano APRN 10 mg at 05/17/23 1654 metoproloL tartrate (Lopressor) tablet 25 mg 25 mg Oral 2 times per day Mara Serrano APRN 25 mg at 05/18/23 0825 lidocaine (Lidoderm) 5% patch 1 patch 1 patch Transdermal Q24H Mara Serrano APRN 1 patch at 05/17/23 1230 oxyCODONE (Roxicodone) tablet 5 mg 5 mg Oral Q3H PRN Mara Serrano APRN 5 mg at 05/17/23 202 ticagrelor (Brilinta) tablet 90 mg 90 mg Oral BID Mara Serrano APRN 90 mg at 05/18/23 0825 sodium chloride 0.9 % (flush) (BD PosiFlush Normal Saline 0.9) flush 5 mL 5 mL Intravenous BID Mara Serrano APRN 5 mL at 05/18/23 0831 sodium chloride 0.9 % (flush) (BD PosiFlush Normal Saline 0.9) flush 5-20 mL 5- 20 mL Intravenous Q1Min PRN Mara Serrano APRN aspirin chewable tablet 81 mg 81 mg Oral Daily MaggieMara ernandez APRN 81 mg at 05/18/23 0826 ondansetron (pf) (Zofran) (2 mg/mL) injection 4 mg 4 mg Intravenous Q8H PRN Mara Serrano APRN4 mg at 05/12/23 0736 pantoprazole EC (Protonix) tablet 40 mg 40 mg Oral Daily Mara Serrano APRN 40 mg at 05/18/23 0826 Or pantoprazole (Protonix) injection 40 mg 40 mg Intravenous Daily Happy CampMara ernandez APRN 40 mg at 05/12/23 1004 senna-docusate (Pericolace) 8.6-50 mg per tablet 2 tablet 2 tablet Oral Daily Mara Serrano APRN 2 tablet at 05/16/232 bisacodyL (Dulcolax) suppository 10 mg 10 mg Rectal Daily PRN Mara Serrano APRN melatonin tablet 6 mg 6 mg Oral Nightly PRN Mara Serraon APRN 6 mg at 05/17/232024 influenza vaccine adjuvanted (Adult 65 Yrs +) (FluAD Quad) (PF) IM injection 0.5 mL 0.5 mL Intramuscular Prior to discharge Mara Serrano APRN FAMILY HISTORY: No family history on file. SOCIAL HISTORY: Social History Socioeconomic History Marital status: Single Spouse name: Not on file Number of children: Not on file Years of education: Not on file Highest education level: Not on file Occupational History Not on file Tobacco Use Smoking status: Never Smokeless tobacco: Never Vaping Use Vaping Use: Never used Substance and Sexual Activity Alcohol use: No Alcohol/week: 0.0 standard drinks of alcohol Comment: none Drug use: No Sexual activity: Not on file Other Topics Concern Not on file Social History Narrative Not on file Social Determinants of Health Financial Resource Strain: Not on file Food Insecurity: Not on file Transportation Needs: Not on file Physical Activity: Not on file Housing Stability: Not on file REVIEW OF SYSTEMS: 12+ point review of systems was reviewed in detailed and negative apart from the HPI. Objective: Physical Examination: Patient Vitals for the past 24 hrs: Temp Pulse Resp BP SpO2 O2 Device 05/17/23 1130 36.4 ??C (97.6 ??F) 95 16 111/77 96 % RA 05/17/23 1657 36.9 ??C (98.4 ??F) 93 23 106/67 96 % RA 05/17/23 2010 37.2 ??C (98.9 ??F) 89 10 117/68 95 % RA 05/18/23 0025 37 ??C (98.6 ??F) 88 16 117/61 99 % RA 05/18/23 0420 37 ??C (98.6 ??F) 91 12 99/55 94 % RA 05/18/23 0748 36.9 ??C (98.4 ??F) 97 22 108/61 93 % RA 05/18/23 0825 -- 98 -- -- -- -- General: Pleasant, older frail female, appears older than stated age, no acute distress HEENT: Normocephalic, atraumatic, benign NECK: Supple, no masses, FROM CV: Tachycardic rate, Rhythm: Regular rhythm, II/ crescendo-decrescendo murmur best heard at the USBs, diminutive S2, no rubs, no ventricular heaves RESP: CTAB, moving air well, symmetric chest excursion GI: Soft, nd, nttp EXT: No cyanosis/clubbing,trivial abdominal trace edema, preserved distal pulses NEURO: No gross focal deficits DERM: No rash, wwp -- 137 100 71 -- -- 9.7 -- H/H -- 3.7 24 1.64 -- -- -- -- -- -- -- -- --N (--B) / --L / --M / --E / --B No results found for this or any previous visit (from the past 24 hour(s)). TTE 05/08/23 Interpretation Summary -Left ventricle is [...] Mitral regurgitation is similar. 12 lead EKG: Cardiac Cath 11/09/2022 Coronary Angiography: Dominance: Co-dominant [...] performed. Conclusions: * Nonobstructive coronary artery disease Assessment and Plan: Patient ID: Severe s/p SAVR 2016, now with janet TAVR (23 mm) HTN HFrEF NICOLAS Right pleural effusion Cardiogenic shock, recovered Purnima Magalie Thacker is a 67 y.o. female with a past medical history significant for history of SAVR 09/2016 (bovine pericardial 25 mm), HFrEF, HTN, DLP, NICOLAS, mixed connective tissues disease, and other chronic medical comorbidities, who has been admitted to the cardiovascular service with acute on chronic decompensated systolic heart failure in the context of bioprosthetic aortic valve stenosis. She is now status post TAVR Fskvx-ar-Jrtum with a 23 mm Lai 3 THV 05/12/[address] Sharma. Janet TAVR case notable for coronary LAD protective MINNA. Status post TAVR, the patient was transferred to CV for pressor and inotropic support. Pressors weaned overnight 05/12. Cardiac indices by thermodilution remained >3 with continued Milrinone 0.125 mcg/kg/min prior to PAC removal. Hemoglobin improved to 7.8 on most recent labs (9.2 on blood gas). Renal function continues to improve. Transaminitis now down-trending. Continue ASA 81 daily and Ticagrelor 90 BID. Patient understands importance of long-term pre-dental antibiotic prophylaxis. - Continue ASA 81 daily - Continue Ticagrelor 90 mg BID - Daily EKGs - Long-term pre-dental antibiotic ppx - CT surgery has consulted IR to place pigtail today - Appreciate continued hemodynamic monitoring and management by primary team Please re-engage the structural heart team as needed Magdalena Puri APRN Structural Heart Team Pager [phone] Team Office Please see addendum by Dr. Sharma for final plan and recommendations Associated attestation - Antelmo Sharma MD - 05/19/2023 10:52 PM EDT I have reviewed Magdalena Puri APRN's above history and I agree with the details as written. The assessment and plan were formulated in discussion with me and I agree with them as documented. Antelmo Sharma MD Pager [phone] * Nico Palacios PA - 05/18/2023 8:13 AM EDT Cardiac Surgery Progress Note Purnima Thacker is a 67 y.o. 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 PMH of s/p tissue AVR (2017), mixed connective tissue disease HTN, HLD, NICOLAS, diverticulosis, rosacea, essential tremor, and depression. 24h Events: Cr improved to 1.64 +BM S: Doing well. No complaints other than does not know where she is going. Also having feelings of ups and downs. Breathing ok, worked with PT yesterday. Shen diet. +flatus, + bm. O: Temp: [36.4 ??C (97.6 ??F)-37.2 ??C (98.9 ??F)] Heart Rate: [87-97] Resp: [10-23] BP: (99-117)/(55-77) SpO2: [91 %-99 %] Heart Rate from SpO2: -- 05/17 0701 - 05/18 0700 In: 1001.6 [P.O.:990; I.V.:11.6] Out: 1600 [Urine:1600] Admit weight: 76.4 kg Current weight: Weight: 76.9 kg (169 lb 8 oz) Physical Exam: General: Sitting in chair. Pleasant. Neuro: Awake and alert. No gross neurological deficit. Lungs: Non-labored respirations on RA, CTABL diminished bases R>L Heart: rrr, s1s2 no mrg Abdomen: Soft, NTND +bs Ext: WWP, no edema Groins: soft, no hematoma, right groin ecchymotic, nontender Tubes/Lines/Drains: PIV Assessment/Plan: 67 y.o. female 6 Days Post-Op Janet TF TAVR for prosthetic . #Severe prosthetic AV stenosis s/p Janet TF TAVR #Cardiogenic shock #s/p LM stent placement ASA 81' Ticagrelor - will continue for 1 year Lopressor 12.5 tid EKG stable Regular diet RBOs Wean NC as tolerated to maintain SpO >92%, pulm toilet PT consult for deconditioned state #HLD Holding Lipitor for given transaminitis LFT's improved will restart #HTN Hold home Losartan and Diltiazem BB 12.5 tid #Mixed connective tissue disease Hold home Meloxicam, Plaquenil Oxy prn #Oliguric EVANS - improving Secondary to cardiogenic shock and DYLAN Holding lasix for now; autodiuresing. Daily BMP. Avoid nephrotoxic drugs Consulted nephrology, appreciate recs #Transaminitis Repeat LFTs today improved #Pleurisy #Small bilateral pleural effusions Small bilateral pleural effusions d/t cardiogenic shock. R>L effusion on CXR. Will order IR pigtail for right side today. Oxy prn. Hold NSAIDS given EVANS Disposition: Floor Status, Full Code Attempt Cardiopulmonary Resuscitation - Inpatient Discussed with attending surgeon on rounds this morning. EKATERINA KIM 05/18/2023 Between the hours of 1800 - 0600 and on the weekends please page [phone]. * JudiLoli eid, PT - 05/17/2023 5:27 PM EDT Physical Therapy Note Treatment Number PT: 2 Patient profile: Purnima Thacker is a 67 y.o. 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 PMH of s/p tissue AVR (2017), mixed connective tissue disease HTN, HLD, NICOLAS, diverticulosis, rosacea, essential tremor, and depression. 24h Events: Lasix 40 x 1, 4.6L u/o Cr improved 2.9 from 3.9 No bm since 05/10 Social History: Pt lives alone at baseline in a 1 level home with 3 stairs to enter. Flight of stairs to basement but she does not use. Her brother comes a few times a day to assist with wood stove in the basement. Pt was indep without a device at baseline. Drives. Precautions/Special Considerations: At risk to fall; Milrinone; 2L O2 Mobility and Positioning Recommendations: Ambulate 3-4x/daily with nursing with rolling walker, room air, 1 assist OOB in chair for all meals Subjective: Yeah, what you are saying makes sense. Rehab would be good. Objective: Patient seen for PT and demonstrated the following: Pain: Pt c/o R posterior lower chest wall discomfort, in areas of quadratus lumborum insertion medially, as well as generalized trapezius tightness. Mental Status: alert, oriented, appropriate Vital Signs: SpO2: 95% on RA HR: 95-97 BP: 120/58 rest; 120/69 after ambulation in hallway Five Times Sit to Stand Test Time to complete 5 stands: 35.12 Comments: Normal Values: Greater than 13.6 seconds indicates increased disability and morbidity. - (Codie, 2000) The optimal cutoff time for performing the FTSS test in predicting recurrent falls is 15 seconds. -(Nerissa et al., 2008) References: Sriram Mackay., Corina Louise et al. (2000). Lower extremity function and subsequent disability: consistency across studies, predictive models, and value of gait speed alone compared with the short physical performance battery. J Gerontol A Biol Sci Med Sci 55(4): M221-31. Nerissa Dale, Lucinda James, Enedelia P, Sim R, Asad P, Fredo G et al. Five times sit to stand test is a predictor of recurrent falls in healthy community?living subjects aged 65 and older. J Am Geriatr Soc 2008; 56(8):1575?1577 Pt sitting up in CC when PT arrived , pt was sitting up in chair, posture very guarded, shoulders shrugged up, looked fearful of movement and admitted to this. As above she described upper trap and lower posterior chest discomfort that was also evident with mobility. Prior to any exs, pt needed to use the bathroom. Stood with min A x1 and ambulated about 10 ft to toilet with FWW and CGA. Gait: guarded and stiff, decreased step length B. Pt needed assist for personal care after toileting. Ambulated to edge of bed to work on postural active exs (overhead reaches, shoulder shrugs with exaggerated relaxation with shoulder depression, shoulder protraction /retraction and also did some soft tissue massage to B upper traps and R quadratus insertion area). Pt able to transfer sit <>supine with cues for technique and min A, but again was very guarded and had discomfort with her movement. Pt ambulated about 100 ft in hallway with FWW and close supervision and cues for technique (relax shoulders, stay inside walker for better posture and safety) Pt left in bedside recliner chair Education: postural exercises, relaxation exs, talked about d/c planning (PT concern for pt being home alone right now) and discussed the benefits of a short rehab stay. Assessment: Purnima Thacker was seen today for physical therapy treatment session for continuation of POC. Pt is making slow, steady gains, but lives alone and is not ready to manage on her own at this time. She needs safe practice with mobility to maximize independence, balance, gait safety and end urance as well as confidence (her guardedness and fear of movement right now is a risk factor for falls). She scored 35.12 secs on 5x sit to stand test (Greater than 13.6 seconds indicates increased disability and morbidity). Pt agrees to a referral for short term rehab placement to address her needs prior to returning home alone. Anticipated Discharge Disposition (PT): detention facility, swing bed rehabilitation facility Consult Recommendations: OT consult Anticipated Equipment Needs at Discharge (PT): to be determined Goals to be achieved by 05/19/23 Pt will ambulate at least 160' with supervision with least restrictive device. Pt will perform 3 stairs with rail, LRAD and supervision. Pt to mobilize on RA with SpO2>92% with all mobility Pt able to complete sit to stand test in 20 secs or below. Pt able to transfer supine<>sit with ease, HOB flat, no rail. Plan: Therapy Frequency (PT): 2-4 times/wk as outlined in initial evaluation. Patient agrees with plan as stated. Time IN / OUT: 3810-4112 Total Minutes, Physical Therapy: 54 Billing Code: te-sx2, te-f, gait LOLI HERNANDEZ PT Pager: [phone] Physical Therapy Inpatient Rehabilitation Department * Cynthia Blackburn MD - 05/17/2023 4:47 PM EDT NEPHROLOGY PROGRESS NOTE 67yo woman with EVANS (baseline unknown) in the setting of contrast administration and TAVR. Interval History: Patient seen and examined in her room. Clinical and laboratory data reviewed. Patient reports that she's feeling okay today. No chest pain or shortness of breath. No specific complaints. PE: Vitals: 05/17/23 0800 05/17/23 0953 05/17/23 1044 05/17/23 1130 BP: 116/74 105/71 111/77 BP Location (NBP): Left arm Right arm Right arm Pulse: 89 91 87 95 Resp: 05 20 16 Temp: 36.6 ??C (97.9 ??F) 36.4 ??C (97.6 ??F) TempSrc: Oral Oral SpO2: 97% 91% 96% Weight: Height: General - Awake and alert. Sitting up in chair. NAD. HEENT - NCAT. Clear sclerae. Neck - Supple. Respiratory - Clear lungs. Cardiovascular - RRR. Abdomen - Benign. Extremities - No edema. Psychiatric - Appropriate mood and affect. Creatinine (mg/dL) Date Value 05/17/2023 2.97 (H) 05/16/2023 3.91 (H) 05/16/2023 4.74 (H) 05/15/2023 5.62 (H) 05/14/2023 4.80 (H) Assessment and Recommendations: EVANS - Creatinine improving. Baseline unknown, but will continue to monitor to see where she stabilizes. Robust urine output yesterday. Has not received furosemide today. Metabolics - Well controlled. Cynthia Blackburn MD Nephrology Pager: [phone] * Mara Serrano, ANURAG - 05/17/2023 8:26 AM EDT Cardiac Surgery Progress Note Purnima Thacker is a 67 y.o. 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 PMH of s/p tissue AVR (2017), mixed connective tissue disease HTN, HLD, NICOLAS, diverticulosis, rosacea, essential tremor, and depression. 24h Events: Lasix 40 x 1, 4.6L u/o Cr improved 2.9 from 3.9 No bm since 05/10 S: pt feels pretty good. Hasn't walked yet today but is ambulating otherwise. +flatus, no bm O: Temp: [36.7 ??C (98.1 ??F)-36.8 ??C (98.2 ??F)] Heart Rate: [73-97] Resp: [7-19] BP: (96-126)/(45-77) SpO2: [96 %-100 %] Heart Rate from SpO2: -- 05/16 0701 - 05/17 0700 In: 1440 [P.O.:1440] Out: 4675 [Urine:4675] Admit weight: 76.4 kg Current weight: Weight: 74.7 kg (164 lb 10.9 oz) Physical Exam: General: Sitting in chair. Pleasant. Neuro: Awake and alert. No gross neurological deficit. Lungs: Non-labored respirations on 1L, ls clear dim Heart: rrr, s1s2 no mrg Abdomen: Soft, NTND +bs Ext: WWP, no edema Groins: soft, no hematoma, right groin ecchymotic, nontender Tubes/Lines/Drains: Art, PIV Assessment/Plan: 67 y.o. female 5 Days Post-Op Janet TF TAVR for prosthetic . #Severe prosthetic AV stenosis s/p Janet TF TAVR #Cardiogenic shock #s/p LM stent placement ASA 81' Ticagrelor - will continue for 1 year Lopressor 12.5 tid EKG stable Regular diet Suppository encourage bm RBOs Wean NC as tolerated to maintain SpO >92%, pulm toilet PT consult for deconditioned state #HLD Holding Lipitor for given transaminitis LFT's improved will restart #HTN Hold home Losartan and Diltiazem BB 12.5 tid #Mixed connective tissue disease Hold home Meloxicam, Plaquenil Oxy prn #Oliguric EVANS - improving Secondary to cardiogenic shock and DYLAN Responding well to lasix. 40 iv x1 yesterday. Daily BMP. Avoid nephrotoxic drugs Consulted nephrology, appreciate recs #Transaminitis Repeat LFTs today improved #Pleurisy #Small bilateral pleural effusions Small bilateral pleural effusions d/t cardiogenic shock. Ultrasounded Wednesday and not enough to drain. Repeat CXR today pending Oxy prn. Hold NSAIDS given EVANS Disposition: [facility] Status tx to [facility] Attempt Cardiopulmonary Resuscitation - Inpatient Discussed with attending surgeon on rounds this morning. MARA SERRANO APRN 05/17/2023 Between the hours of 1800 - 0600 and on the weekends please page [phone]. * Guerda Del Valle - 05/16/2023 10:44 AM EDT Nutrition Services Note - Low Nutrition Acuity Purnima Thacker is a 67 y.o. female Reason for intervention: hospital day 9 Nutrition Plan: Continue diet order Encourage good PO Josephine noted Added special serve: open containers Monitor weight Patient scheduled for a hospital day 9 nutrition evaluation. Ironing Worker met with pt at bedside. Pt reports that her appetite and PO has much improved since admission. Denies nausea/vomiting or trouble chewing/swallowing. Ironing Worker provided snack list but pt not interested in adding snacks at this time. Her only concern was that she is worried that she will eat too much which will cause too much pressure in her stomach. Ironing Worker assured pt and suggested eating smaller but more frequent meals/snacks to avoid this. Pt liked this idea. Per documentation patient has mostly excellent PO intakes recorded at 100% (with one 50% noted) over the past 3 days. According to dining services software they have ordered an average ~1069 kcals/day and 51 g protein/day within the same duration. Wt fluctuations this admission noted per documentation - not c/s d/t lasix. Minor wt loss noted prior to admission but not c/s. Pt added I used to be 174 [lbs]. Wts currently trending upwards. Please update and trend wts to allow for ongoing assessment of weight changes. Clinical Nutrition to monitor and follow. Active Orders Diet Regular diet Frequency: Effective Now Number of Occurrences: Until Specified Admit Weight: 76.4 kg Estimated body mass index is 32.55 kg/m?? as calculated from the following: Height as of this encounter: 154.9 cm (5' 0.98). Weight as of this encounter: 78.1 kg (172 lb 2.9 oz). Wt Readings from Last 5 Encounters: 05/16/23 78.1 kg (172 lb 2.9 oz) 04/27/23 78.1 kg (172 lb 3.2 oz) 03/31/23 79.4 kg (175 lb) 03/18/23 78.8 kg (173 lb 13.3 oz) 02/17/23 79.8 kg (176 lb) Weight loss: not clinically significant Appetite: mostly Excellent (75%-100%) Food allergies:no known food allergies Chewing/Swallowing difficulty: none Nausea/Vomiting: no nausea and no vomiting Last Bowel Movement: 05/10/23 Guerda Del Valle Events Administrative Assistant * Vinod Juárez PA - 05/16/2023 10:19 AM EDT Cardiac Surgery Progress Note Purnima Thacker is a 67 y.o. 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 PMH of s/p tissue AVR (2017), mixed connective tissue disease HTN, HLD, NICOLAS, diverticulosis, rosacea, essential tremor, and depression. 24h Events: Milrinone stopped Brisk UOP response with lasix 80 x1, Cr downtrending this morning S: C/O left chest pain, worse with inspiration. +Cough. Groins feel fine. O: Temp: [36.3 ??C (97.3 ??F)-37.6 ??C (99.7 ??F)] Heart Rate: [87-97] Resp: [11-23] BP: (102-126)/(45-89) SpO2: [97 %-100 %] Heart Rate from SpO2: [56 bpm-97 bpm] Drips: None 05/15 0701 - 05/16 0700 In: 470 [P.O.:470] Out: 2565 [Urine:2565] Admit weight: 76.4 kg Current weight: Weight: 78.1 kg (172 lb 2.9 oz) Physical Exam: General: Sitting in chair. Pleasant. Neuro: Awake and alert. No gross neurological deficit. Lungs: Non-labored respirations on 1L. +Splinting Heart: Irregular, normal rate, SR w/ PVCs on tele Abdomen: Soft, NTND Ext: WWP, no edema Groins: soft, no hematoma, right groin ecchymotic, nontender Tubes/Lines/Drains: ROSAURA Art Assessment/Plan: 67 y.o. female 4 Days Post-Op Janet TF TAVR for prosthetic . #Severe prosthetic AV stenosis s/p Janet TF TAVR #Cardiogenic shock #s/p LM stent placement ASA 81' Ticagrelor - will continue for 1 year Milrinone stopped Start Lopressor 12.5 tid EKG stable Regular diet RBOs Wean NC as tolerated to maintain SpO >92%, pulm toilet PT consult for deconditioned state #HLD Holding Lipitor for now given transaminitis, restart when able #HTN Hold home Losartan and Diltiazem BB 12.5 tid #Mixed connective tissue disease Hold home Meloxicam, Plaquenil Oxy prn #Oliguric EVANS - improving Secondary to cardiogenic shock and DYLAN Responding well to lasix. 40 iv x1 today. Daily BMP. Avoid nephrotoxic drugs Consulted nephrology, appreciate recs #Transaminitis Repeat LFTs Wednesday. If resolved can start APAP given pleuritic chest pain #Pleurisy #Small bilateral pleural effusions Small bilateral pleural effusions d/t cardiogenic shock. Ultrasounded Wednesday and not enough to drain. Oxy prn. Hold NSAIDS given EVANS Disposition: [facility] Status Attempt Cardiopulmonary Resuscitation - Inpatient Discussed with attending surgeon on rounds this morning. EKATERINA NAVARRETE 05/16/2023 Between the hours of 1800 - 0600 and on the weekends please page [phone]. * Michael Jeffers MD - 05/16/2023 8:11 AM EDT Images from the original note were not included. Hypertension-Nephrology Inpatient Follow-up Purnima Thacker [id number] 1955 ID: [id number] y.o. old female seen for EVANS. Interval History: Responded well to dose if IV diuretics yesterday, creatinine starting to downtrend. Physical Examination: Last value 24 Hour Temperature Range Temp: [36.3 ??C (97.3 ??F)-37.4 ??C (99.3 ??F)] 12 Hour Heart Rate Range Heart Rate: [82-93] 24 Hour Blood Pressure Range BP: (101-126)/(45-89) Respiratory Rate Resp: 17 SpO2 SpO2: 99 % Body mass index is 32.55 kg/m??. General: NAD Chest: Breathing comfortably on 1L NC Ext: No edema. Skin: No rashes or lesions on the exposed skin. Neuro: Alert & oriented, no focal deficits. Psych: Pleasant and calm, conversational attention is intact. metoproloL tartrate 12.5 mg Oral Q8H BRYANT lidocaine 1 patch Transdermal Q24H ticagrelor 90 mg Oral BID sodium chloride 0.9 % (flush) 5 mL Intravenous BID aspirin 81 mg Oral Daily pantoprazole EC 40 mg Oral Daily Or pantoprazole 40 mg Intravenous Daily senna-docusate 2 tablet Oral Daily Lab Results Component Value Date CREATININE 4.74 (H) 05/16/2023 CREATININE 5.62 (H) 05/15/2023 CREATININE 4.80 (H) 05/14/2023 CREATININE 3.15 (H) 05/13/2023 CREATININE 2.01 (H) 05/12/2023 ESTGFR 10 (L) 05/16/2023 ESTGFR 8 (L) 05/15/2023 ESTGFR 9 (L) 05/14/2023 ESTGFR 16 (L) 05/13/2023 ESTGFR 27 (L) 05/12/2023 NA 132 (L) 05/16/2023 NA 131 (L) 05/15/2023 NA 132 (L) 05/14/2023 K 3.3 (L) 05/16/2023 K 3.9 05/16/2023 K 3.7 05/15/2023 CO2 18 (L) 05/16/2023 CO2 18 (L) 05/15/2023 CO2 18 (L) 05/14/2023 Lab Results Component Value Date CALCIUM 9.2 05/16/2023 CALCIUM 8.9 05/15/2023 CALCIUM 8.5 05/14/2023 PHOS 4.7 (H) 05/08/2023 PTH 120 (H) 05/16/2023 25OHVITD 33 05/16/2023 TSH 1.27 05/08/2023 URICACID 14.9 (H) 05/14/2023 Lab Results Component Value Date HGB 7.8 (L) 05/16/2023 HGB 7.2 (L) 05/15/2023 HGB 7.2 (L) 05/14/2023 FERRITIN 1,813 (H) 05/16/2023 IRONSAT 12 (L) 05/16/2023 SFOLATE >20.0 07/03/2022 [id number] 449 07/03/2022 Lab Results Component Value Date ALBUMIN 3.6 05/14/2023 ALBUMIN 3.0 (L) 05/13/2023 ALBUMIN 3.5 05/12/2023 Assessment & Plan: Purnima Thacker is a 67 y.o. female admitted in the setting of valve in valve TAVR now c/b cardiogenic shock and EVANS on what appears to be previously normal renal function (see above). Responded well to dose of IV diuretics yesterday and UOP remains robust, suspect some component of post ATN diuretics. Cr improving as well. EVANS Cardiogenic Shock Anemia - Now s/p IV lasix 40 mg this morning. Please get pm BMP to ensure electrolyte stability. - Please note that I've ordered PTH, vitamin D, ferritin, iron and TIBC with am labs. - We will continue to follow closely Please avoid NSAIDs, contrast, nephrotoxins and dose adjust renally toxic medications as able. This case was staffed with Dr. Ayoub. Please contact me at phone: [phone] or pager: [phone] with any questions. Michael Jeffers MD Nephrology & Hypertension Fellow Associated attestation - Kristopher Ayoub MD - 05/16/2023 2:15 PM EDT Renal Staff Addendum Patient seen and examined with Dr. Jeffers. I agree with the above note which represents our joint assessment and plan with the following additions: Cr improving. Minimal O2 requirement and soft blood pressures. Consider repeat CXR before pushing for further diuresis. * James Agustin MD - 05/15/2023 2:40 PM EDT Cardiac Surgery Progress Note Purnima Thacker is a 67 y.o. 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 PMH of s/p tissue AVR (2017), mixed connective tissue disease HTN, HLD, NICOLAS, diverticulosis, rosacea, essential tremor, and depression. 24h Events: -continues on milrinone 0.125 -LFTs downtrending -Nephrology consulted, labs and renal US ordered -Winfall removed, ambulated around the unit -bilateral pleural effusions assessed with ultrasound and minimal in size S: Feels well this morning, denies any complaints. Denies lightheadedness/dizziness, visual changes, chest pain, shortness of breath, N/V, abdominal pain, or numbness/weakness of extremities. Passingflatus. BM-. Tolerating diet. Has been OOB to chair. Ambulated around unit yesterday. O: Temp: [36.5 ??C (97.7 ??F)-37.6 ??C (99.7 ??F)] Heart Rate: [87-111] Resp: [11-22] BP: (89-124)/(54-78) SpO2: [95 %-100 %] Heart Rate from SpO2: [87 bpm-110 bpm] Hemodynamics: Drips: Mil 0.125 05/14 0701 - 05/15 0700 In: 674.6 [P.O.:360; I.V.:314.6] Out: 409 [Urine:409] Net +290 cc/24hr Admit weight: 76.4 kg Current weight: Weight: 78.2 kg (172 lb 6.4 oz) Physical Exam: General: Sitting in chair. NAD. Pleasant. Neuro: Awake and alert. Speech clear and appropriate. Moves all extremities with equal strength, nofocal deficit. Lungs: Diminished at bases (R>L) but otherwise CTA bilaterally, no wheezes, crackles, rhonchi. Resp effort good, non-labored on 1 L NC. Heart: RRR, S1S2. Grade III/ RUSTY. No rubs, or gallops. Sinus low-100s on tele. Abdomen: Soft, NTND, +bowel sounds. Ext: Warm, well perfused. No BLE edema. Groins soft b/l, no evidence of hematoma. Tubes/Lines/Drains: Rubens GAYTAN PIV Assessment/Plan: 67 y.o. female 3 Days Post-Op s/p Janet TF TAVR. Preoperative presentation in cardiogenic shock. #Severe prosthetic AV stenosis s/p Janet TF TAVR #Cardiogenic shock #s/p LM stent placement ASA 81' Ticagrelor - will continue for 1 year Discontinue milrinone gtt Regular diet RBOs Protonix Wean NC as tolerated to maintain SpO >92%, pulm toilet PT consult for deconditioned state #HLD D/c'd Lipitor for now given LFTs, restart later #HTN Hold home Losartan, Diltiazem #Mixed connective tissue disease Hold home Meloxicam, Plaquenil Oxy prn #Oliguric EVANS Rise in Cr s/p dye from TAVR Avoid nephrotoxic drugs Stop milrinone, start dopamine @ 2 Consulted nephrology, appreciate recs #Transaminitis LFTs downtrending Hold APAP Disposition: CVCC Status Attempt Cardiopulmonary Resuscitation - Inpatient Discussed with attending surgeon on rounds this morning. James Agustin MD 05/15/2023 Between the hours of 1800 - 0600 and on the weekends please page [phone]. * Hortencia Cody MD - 05/15/2023 2:07 PM EDT Critical Care Medicine Staff Progress Note 67 y.o. female with h/o SAVR 09/2016 (bovine pericardial 25 mm), HFrEF, HTN, DLP, NICOLAS, mixed connective tissues disease, now s/p valve in valve TAVR 24 hr events/subjective: - EVANS - milrinone off PE Temp: [36.5 ??C (97.7 ??F)-37.6 ??C (99.7 ??F)] Heart Rate: [87-111] Resp: [11-22] BP: (89-124)/(54-78) SpO2: [95 %-100 %] Heart Rate from SpO2: [87 bpm-110 bpm] Vent settings: 1L NC Gen: elderly female, sitting up in chair CVS: RRR Lungs: CTAB Abd: soft, NT, ND Ext: WWP Skin: no rashes Neuro: AA&Ox3, moving all extremities Labs Last 3 wbc, hgb, hct plt Recent Labs 05/15/23 0050 05/14/23 0110 05/13/23 0115 WBC 9.1 11.2* 8.6 HGB 7.2* 7.2* 7.8* HCT 20.6* 20.3* 22.2* PLATELET 109* 112* 130* Last 3 Lytes Recent Labs 05/15/23 0050 05/14/23 0110 05/13/23 0115 NA 131* 132* 132* K 3.7 4.1 3.8 CL 92* 94* 95* CO2 18* 18* 20* BUN 109* 98* 82* CREATININE 5.62* 4.80* 3.15* Last 3 LFTs Recent Labs 05/14/23 0110 05/13/23 0115 05/12/23 0600 AST 319* 792* 1,435* ALT 437* 903* 1,174* ALKPHOS 86 85 100 BILITOT 0.4 0.5 0.9 BILIDIR -- 0.3 -- Last Ca, Mg, Phos Recent Labs 05/15/23 0050 05/09/23 0400 05/08/23 1600 CALCIUM 8.9 < > -- MAGNESIUM -- -- 0.82 < > = values in this interval not displayed. Last 3 Coags Recent Labs 05/13/23 1015 PT 14.6* INR 1.3 PTT 27 I/O overnight: I/O this shift: In: 80 [P.O.:80] Out: 420 [Urine:420] Weight: Patient Vitals for the past 168 hrs: Weight 05/15/23399 78.2 kg (172 lb 6.4 oz) 05/14/23 06 79.7 kg (175 lb 11.3 oz) 05/13/23 06 75.3 kg (166 lb 0.1 oz) 05/12/23 0300 74.5 kg (164 lb 3.9 oz) 05/11/23 0347 77.4 kg (170 lb 9.6 oz) 05/10/23399 78.1 kg (172 lb 1.6 oz) 05/09/23 2336 78.4 kg (172 lb 14.4 oz) 05/09/23 040 76.8 kg (169 lb 5 oz) Micro: Recent Labs 05/11/23 192 URINECULTURE 50,000-99,000 cfu/ml Normal mucosal herman Susceptibility testing not routinely performed for Coagulase Negative Staphylococcus species and other Gram Positive organisms from urine. No results for input(s): GRAMSTAIN, BFCX, LOWERRESPCX, TISSUECX in the last 720 hours. No results for input(s): BLOODCX in the last 720 hours. T/L/D Rubens 05/11 ASSESSMENT, MANAGEMENT, and DECISION MAKIN y.o. female with h/o SAVR 09/2016 (bovine pericardial 25 mm), HFrEF, HTN, DLP, NICOLAS, mixed connective tissues disease, now s/p valve in valve TAVR - stop milrinone today - appreciate nephrology recommendations - will give lasix again today, may need dialysis tomorrow if BUN continues to rise - consider dopamine to support cardiac output if needed - OOB as tolerated - continue ticagrelor/ ASA Ppx: - scd's - HOB >30 - mouth care - PPI Code status: FULL CODE IS PATIENT CRITICALLY ILL ? Is there a high potential of sudden, clinically significant, or life threatening deterioration? Yes Is there a need for direct personal assessment and management to treat/prevent multiple vital organfailure/deterioration? Yes If this patient is not critically ill, the reason for continued hospitalization is [] PATIENT IS CRITICALLY ILL WITH THESE DIAGNOSES BEING MANAGED BY [facility] TEAM: Renal Disease/Failure Acute I personally performed 35 minutes of aggregate critical care time exclusive of procedures and teaching. This includes time during direct patient evaluation and reassessment, interpreting labs and studies, directing life and/or organ supporting organ interventions, and documentation on the unit. * Michael Jeffers MD - 05/15/2023 8:24 AM EDT Images from the original note were not included. Hypertension-Nephrology Inpatient Follow-up Purnima Thacker [id number] 1955 ID: 67 y.o. old female seen for EVANS. Interval History: Cr continues to worsen although UOP came up slightly yesterday with IV furosemide. She is in good spirits today, No pressing question or concerns. Physical Examination: Last value 24 Hour Temperature Range Temp: [36.4 ??C (97.5 ??F)-37.6 ??C (99.7 ??F)] 12 Hour Heart Rate Range Heart Rate: [87-104] 24 Hour Blood Pressure Range BP: (89-124)/(54-78) Respiratory Rate Resp: 14 SpO2 SpO2: 99 % Body mass index is 32.57 kg/m??. General: NAD Chest: Breathing comfortably on 1L NC Ext: No edema. Skin: No rashes or lesions on the exposed skin. Neuro: Alert & oriented, no focal deficits. Psych: Pleasant and calm, conversational attention is intact. ticagrelor 90 mg Oral BID sodium chloride 0.9 % (flush) 5 mL Intravenous BID aspirin 81 mg Oral Daily Or aspirin 300 mg Rectal Daily pantoprazole EC 40 mg Oral Daily Or pantoprazole 40 mg Intravenous Daily senna-docusate 2 tablet Oral Daily Lab Results Component Value Date CREATININE 5.62 (H) 05/15/2023 CREATININE 4.80 (H) 05/14/2023 CREATININE 3.15 (H) 05/13/2023 CREATININE 2.01 (H) 05/12/2023 CREATININE 1.86 (H) 05/12/2023 ESTGFR 8 (L) 05/15/2023 ESTGFR 9 (L) 05/14/2023 ESTGFR 16 (L) 05/13/2023 ESTGFR 27 (L) 05/12/2023 ESTGFR 29 (L) 05/12/2023 NA 131 (L) 05/15/2023 NA 132 (L) 05/14/2023 NA 132 (L) 05/13/2023 K 3.7 05/15/2023 K 4.1 05/14/2023 K 3.8 05/13/2023 CO2 18 (L) 05/15/2023 CO2 18 (L) 05/14/2023 CO2 20 (L) 05/13/2023 Lab Results Component Value Date CALCIUM 8.9 05/15/2023 CALCIUM 8.5 05/14/2023 CALCIUM 8.3 (L) 05/13/2023 PHOS 4.7 (H) 05/08/2023 TSH 1.27 05/08/2023 URICACID 14.9 (H) 05/14/2023 Lab Results Component Value Date HGB 7.2 (L) 05/15/2023 HGB 7.2 (L) 05/14/2023 HGB 7.8 (L) 05/13/2023 SFOLATE >20.0 07/03/2022 [id number] 07/03/2022 Lab Results Component Value Date ALBUMIN 3.6 05/14/2023 ALBUMIN 3.0 (L) 05/13/2023 ALBUMIN 3.5 05/12/2023 Assessment & Plan: Purnima Thacker is a 67 y.o. female admitted in the setting of valve in valve TAVR now c/b cardiogenic shock and EVANS on what appears to be previously normal renal function (see above). Renal functionby Cr appears worse today however UOP picked up some yesterday with IV diuretic. Renal function remains tenuous though no clear indication for renal replacement therapy today. EVANS Cardiogenic Shock Anemia - Agree with furosemide 80 mg IV again today. Reasonable to re-dose in 6 hours or start lasix infusion as well to augment UOP. - Please note that I've ordered PTH, vitamin D, ferritin, iron and TIBC with am labs. - We will continue to follow closely Please avoid NSAIDs, contrast, nephrotoxins and dose adjust renally toxic medications as able. This case was staffed with Dr. Ayoub. Please contact me at phone: [phone] or pager: [phone] with any questions. Michael Jeffers MD Nephrology & Hypertension Fellow Associated attestation - Kristopher Ayoub MD - 05/15/2023 3:56 PM EDT Renal Staff Addendum Patient seen and examined with Dr. Jeffers. I agree with the above note which represents our joint assessment and plan with the following additions: EVANS in the setting of TAVR, CHF. Volume status well compensated on exam. Continue furosemide with goal of net even fluid balance. Check CXR. Avoid NSAIDS. * Hortencia Cody MD - 05/14/2023 6:29 PM EDT Critical Care Medicine Staff Progress Note 67 y.o. female with h/o SAVR 09/2016 (bovine pericardial 25 mm), HFrEF, HTN, DLP, NICOLAS, mixed connective tissues disease, now s/p valve in valve TAVR 24 hr events/subjective: - worsening renal dysfunction - feels better today - remains on milrinone Drips: - milrinone 0.125 mcg/ kg/ min PE Temp: [36.3 ??C (97.4 ??F)-36.6 ??C (97.9 ??F)] Heart Rate: [88-114] Resp: [12-26] BP: (85-120)/(52-72) SpO2: [94 %-99 %] Heart Rate from SpO2: [89 bpm-117 bpm] Vent settings: 1L NC Gen: elderly female, sitting up in chair CVS: RRR Lungs: CTAB Abd: soft, NT, ND, BS+ Ext: WWP Skin: no rashes Neuro: AA&Ox3, moving all extremities Labs Last 3 wbc, hgb, hct plt Recent Labs 05/14/2310905/13/2311405/12/23 1405 05/12/23 0850 05/12/23 0810 05/12/23 0105 WBC 11.2* 8.6 -- -- -- 9.0 HGB 7.2* 7.8* 8.5* -- -- 9.8* HCT 20.3* 22.2* -- 23.0* < > 28.7* PLATELET 112* 130* -- -- -- 186 < > = values in this interval not displayed. Last 3 Lytes Recent Labs 05/14/2310905/13/2311405/12/23 1405 05/12/23 0600 NA 132* 132* -- 131* K 4.1 3.8 3.9 4.3 CL 94* 95* -- 97* CO2 18* 20* -- 14* BUN 98* 82* -- 67* CREATININE 4.80* 3.15* -- 2.01* Last 3 LFTs Recent Labs 05/14/2310905/13/23 0115 05/12/23 0600 AST 319* 792* 1,435* ALT 437* 903* 1,174* ALKPHOS 86 85 100 BILITOT 0.4 0.5 0.9 BILIDIR -- 0.3 -- Last Ca, Mg, Phos Recent Labs 05/14/23 0110 05/09/23 0400 05/08/23 1600 05/08/23 1138 CALCIUM 8.5 < > -- 9.4 PHOS -- -- -- 4.7* MAGNESIUM -- -- 0.82 0.76 < > = values in this interval not displayed. Last 3 Coags Recent Labs 05/13/23 1015 PT 14.6* INR 1.3 PTT 27 I/O overnight: I/O this shift: In: 394.8 [P.O.:240; I.V.:154.8] Out: 127 [Urine:127] Weight: Patient Vitals for the past 168 hrs: Weight 05/14/23 0600 79.7 kg (175 lb 11.3 oz) 05/13/23 0600 75.3 kg (166 lb 0.1 oz) 05/12/23 0300 74.5 kg (164 lb 3.9 oz) 05/11/23 0347 77.4 kg (170 lb 9.6 oz) 05/10/23 0400 78.1 kg (172 lb 1.6 oz) 05/09/23 2336 78.4 kg (172 lb 14.4 oz) 05/09/23 0400 76.8 kg (169 lb 5 oz) 05/08/23 0900 76.4 kg (168 lb 6.9 oz) Micro: Recent Labs 05/11/23 1922 URINECULTURE 50,000-99,000 cfu/ml Normal mucosal herman Susceptibility testing not routinely performed for Coagulase Negative Staphylococcus species and other Gram Positive organisms from urine. No results for input(s): GRAMSTAIN, BFCX, LOWERRESPCX, TISSUECX in the last 720 hours. No results for input(s): BLOODCX in the last 720 hours. T/L/D Art ETT CVL Leanna ASSESSMENT, MANAGEMENT, and DECISION MAKIN y.o. female with h/o SAVR 09/2016 (bovine pericardial 25 mm), HFrEF, HTN, DLP, NICOLAS, mixed connective tissues disease, now s/p valve in valve TAVR. Patient with EVANS in the setting of heart failure and dye load - continue milrinone in the setting of recent heart failure, low UOP - avoid nephrotoxins - will give lasix x1 - OOB as tolerated - full diet - wean oxygen as tolerated - appreciate nephrology input Ppx: - scd's - HOB >30 - mouth care - PPI Code status: FULL CODE IS PATIENT CRITICALLY ILL ? Is there a high potential of sudden, clinically significant, or life threatening deterioration? Yes Is there a need for direct personal assessment and management to treat/prevent multiple vital organfailure/deterioration? Yes If this patient is not critically ill, the reason for continued hospitalization is [] PATIENT IS CRITICALLY ILL WITH THESE DIAGNOSES BEING MANAGED BY [facility] TEAM: Congestive Heart Failure Systolic Acute Other:s/p TAVR 2/2 aortic stenosis Renal Disease/Failure Acute I personally performed 45 minutes of aggregate critical care time exclusive of procedures and teaching. This includes time during direct patient evaluation and reassessment, interpreting labs and studies, directing life and/or organ supporting organ interventions, and documentation on the unit. * Haven Ba, PT - 05/14/2023 2:06 PM EDT Physical Therapy Evaluation Patient profile: Purnima Thacker is a 67 y.o. female with cardiogenic shock 2/2 severe prosthetic aortic valve stenosis who is 2 Days Post-Op valve in valve TF TAVR. PMH of s/p tissue AVR (2017), mixed connective tissue disease HTN, HLD, NICOLAS, diverticulosis, rosacea, essential tremor, and depression. 24h Events: Kept Mil at 0.125 Low UOP, Cr rising, K stable PAC removed d/t inconsistent waveform/failed troubleshooting No acute events overnight Social History: Pt lives alone at baseline in a 1 level home with 3 stairs to enter. Flight of stairs to basement but she does not use. Her brother comes a few times a day to assist with wood stove in the basement. Pt was indep without a device at baseline. Drives. Precautions/Special Considerations: At risk to fall; Milrinone; 2L O2 Mobility and Positioning Recommendations: Ambulate 3-4x/daily with nursing with rolling walker; 2L O2; 1 assist; chair follow OOB in chair for all meals Subjective: ???I feel shakey and weak.?? Objective: Pt seen in the [facility] for initial evaluation. Pt in chair at start of session; in chair atend of session with call monsalve in reach. Vital Signs: SpO2: 97 % on 2L; trialed RA; 89% on RA at rest; placed back on 2 L for ambulation. 93-95% on 2L with amb HR: 96 bpm BP: 114/67 mmHg IS: 750 mL Pain: 0/10 reported by patient at rest; 2/10 with mobility Mental Status: A & O x 4 Skin: bilateral groin incisions intact. Musculoskeletal: ROM: WFL Strength: B LE's 4/5 Bed Mobility: Supine ->Sit: not assessed; up in chair Transfers: Sit to Stand: cg assist x 1 to rolling walker; cues Stand to Sit: cg assist x 1 Gait: Ambulated 80 ft with rolling walker; cg assist x 1, chair follow. Decreased step height, steplength and daniel. Balance: fair with walker Stairs: not assessed Education/Exercise Instruction: Pt educated on safety and pacing and importance of deep breathing and mobility. Assessment: Pt seen for evaluation. Pt presents with impaired transfers, impaired balance, impairedgait, impaired activity tolerance and impaired hemodynamic stability from her baseline She remains on Milrinone and O2. Pt ambulated in the hallway today with rolling walker and 1 assist. She is tenta tive but with encouragement she gained confidence. She will benefit from frequent walks with nursing over the weekend. Anticipate she will make gains over the coming days and be safe to return home with assist from her family. She reports it was possible she could stay with her Brother or he could stay with her upon d/c. Plan/Discharge Recommendations:: Continued PT 2-4x/week. D/c home once medically ready. Will continue to monitor and re-assess depending on pt's status Equipment needs for home at d/c: ? Rolling walker; will continue to assess Goals to be achieved by 05/19/23 Pt will ambulate at least 160' with supervision with least restrictive device. Pt will perform 3 stairs with rail, LRAD and supervision. Pt to mobilize on RA with SpO2>92% with all mobility Patient status, treatment, and mobility recommendations have been discussed with nursing, Care management and Medical team. Thank you for this consult. 2017 PT Evaluation Code Rationale: Diagnosis & Pertinent Co-Morbidities, personal faxctors, and present illness affecting Plan of Care: (see above); Additional personal factors or co- morbidities that impact plan: Total # of Factors: 0 1-2 3+ Examination of body system impairments, functional limitations and behaviors, and/or participation restrictions. Addressing 1-2 elements Addressing 3 + elements Addressing 4 + elements x Clinical presentation: See assessment above. Stable/Uncomplicated Evolving/Fluctuating Symptoms Unstable/Unpredictable x Clinical decision making of moderate complexity based on pt's functional performance as outlined inthis evaluation. HAVEN BA, PT Pager: [phone] Physical Therapy Inpatient Rehabilitation Department Time IN / OUT: [phone] Total time: Total Minutes, Physical Therapy: 30 (eval) * Bonita Miguel PA - 05/14/2023 8:20 AM EDT Cardiac Surgery Progress Note Purnima Thacker is a 67 y.o. female with cardiogenic shock 2/2 severe prosthetic aortic valve stenosis who is 2 Days Post-Op valve in valve TF TAVR. PMH of s/p tissue AVR (2016), mixed connective tissue disease HTN, HLD, NICOLAS, diverticulosis, rosacea, essential tremor, and depression. 24h Events: Kept Mil at 0.125 Low UOP, Cr rising, K stable PAC removed d/t inconsistent waveform/failed troubleshooting No acute events overnight S: Continues to feel better every day. Chronic pain significantly improved. Denies lightheadedness/dizziness, visual changes, chest pain, shortness of breath, N/V, abdominal pain, or numbness/weakness of extremities. Passing flatus. BM-. Tolerating diet. Has been OOB to chair. Ambulated in room yesterday and marched in place. O: Temp: [36 ??C (96.8 ??F)-36.6 ??C (97.9 ??F)] Heart Rate: [89-109] Resp: [12-26] BP: (85-112)/(43-72) SpO2: [92 %-98 %] Heart Rate from SpO2: [89 bpm-109 bpm] Hemodynamics: CVP 8; PAP 42/14; CI 3.1 Drips: Mil 0.125 05/13 0701 - 05/14 0700 In: 1119.6 [P.O.:660; I.V.:449.6] Out: 125 [Urine:125] Net +1L/24hr Admit weight: 76.4 kg Current weight: Weight: 79.7 kg (175 lb 11.3 oz) Physical Exam: General: Sitting in chair. NAD. Pleasant. Neuro: Awake and alert. Speech clear and appropriate. Moves all extremities with equal strength, nofocal deficit. Lungs: Diminished at bases (R>L) but otherwise CTA bilaterally, no wheezes, crackles, rhonchi. Resp effort good, non-labored on 2L NC. Heart: RRR, S1S2. Grade III/ RUSTY. No rubs, or gallops. Sinus 80s on tele. Abdomen: Soft, NTND, +bowel sounds. Ext: Warm, well perfused. No BLE edema. Groins soft b/l, no evidence of hematoma. Tubes/Lines/Drains: RIJc, Rubens, ROSAURA Assessment/Plan: 67 y.o. female 2 Days Post-Op s/p Janet TF TAVR. Preoperative presentation in cardiogenic shock. #Severe prosthetic AV stenosis s/p Janet TF TAVR #Cardiogenic shock #s/p LM stent placement ASA 81' Ticagrelor - will continue for 1 year Continue mil 0.125 Regular diet RBOs Protonix Wean NC as tolerated to maintain SpO >92%, pulm toilet Bedside US to r/o pleural effusions PT consult for deconditioned state #HLD D/c Lipitor for now given LFTs, restart later #HTN Hold home Losartan, Diltiazem #Mixed connective tissue disease Hold home Meloxicam, Plaquenil Oxy prn #Oliguric EVANS Expected rise in Cr s/p dye from TAVR Avoid nephrotoxic drugs Lasix 80 IV x1 Consult nephrology #Transaminitis LFTs downtrending Hold APAP Disposition: CVCC Status Attempt Cardiopulmonary Resuscitation - Inpatient Discussed with attending surgeon on rounds this morning. EKATERINA Morales 05/14/2023 Between the hours of 1800 - 0600 and on the weekends please page [phone]. * Antelmo Sharma MD - 05/14/2023 7:56 AM EDT Images from the original note were not included. [facility] [place] [address] STRUCTURAL HEART DISEASE CONSULTATION NOTE PRIMARY CARE PROVIDER: Magdalena Acosta MD REFERRING PROVIDER: Mario Alberto Chin REASON FOR CONSULTATION: Bioprosthetic aortic valve stenosis HISTORY OF PRESENT ILLNESS: Patient ID: Purnima Thacker is a 67 y.o. 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 She is now status post TAVR Yalpf-ov-Fpees with a 23 mm Lai 3 THV 05/12/[address] Sharma. Preliminary findings: Successful right transfemoral TAVR [id number]-Gudir with a 23 mm Lai 3 THV. [...] result with ARNEL-3 flow and no residual dissection or perforation. Interval Events: - 05/12 Transferred to [facility] post- TAVR for pressor/inotropic support (Levo, vaso, epi, milrinone gtts) - 05/12/ Extubated 1600 - 05/12 Decreased u/o overnight s/p gentle colloid resuscitation with good effect - Milrinone 0.125 this morning, PAC removed overnight - U/O 125 last 24 hr - H/H 7.8 --> 7.2 - Cr 1.86--> 2.01--> 3.15 --> 4.8 - AST/ALT down-trending - 2L NC O2 during rounds - EKG this morning NSR, stable Naresh/QRSi PROBLEM LIST: Patient Active Problem List Diagnosis S/P TAVR (transcatheter aortic valve replacement) Cardiogenic shock Symptomatic severe aortic stenosis with low ejection fraction Mild coronary artery disease by [facility] 11/09/2022 Heart failure with reduced ejection fraction due to heart valve disease Mixed connective tissue disease Neck pain Diverticulosis Hyperlipidemia, unspecified Rosacea 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, 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) Aortic stenosis Chronic idiopathic neutropenia NICOLAS (obstructive sleep apnea) Depressive disorder Essential tremor Obesity Essential hypertension MEDICATIONS: Current Facility-Administered Medications Medication Dose Route Frequency Provider Last Rate Last Admin oxyCODONE (Roxicodone) tablet 5 mg 5 mg Oral Q4H PRN Bonita Miguel PA milrinone (Primacor) (0.2 mg/mL) in dextrose 5% 100 mL infusion 0.125 mcg/kg/min Intravenous Continuous Nico Palacios PA 2.9 mL/hr at 05/14/23 0600 0.125 mcg/kg/min at 05/14/23 0600 ticagrelor (Brilinta) tablet 90 mg 90 mg Oral BID Lorri Chinchilla PA 90 mg at 05/13/23 2104 sodium chloride 0.9 % (flush) (BD PosiFlush Normal Saline 0.9) flush 5 mL 5 mL Intravenous BID Lorri Chinchilla PA 5 mL at 05/13/23 2100 sodium chloride 0.9 % (flush) (BD PosiFlush Normal Saline 0.9) flush 5-20 mL 5- 20 mL Intravenous Q1Min PRN Lorri Chinchilla PA sodium chloride 0.9% infusion 10-30 mL/hr Intravenous Daily PRN Lorri Chinchilla PA Stopped at 05/13/23 2000 sodium chloride 0.9% infusion 10-30 mL/hr Intravenous Daily PRN Lorri Chinchilla PA 10 mL/hr at 05/14/23 0600 10 mL/hr at 05/14/23 0600 aspirin chewable tablet 81 mg 81 mg Oral Daily Lorri Chinchilla PA 81 mg at 05/13/23 0824 Or aspirin suppository 300 mg 300 mg Rectal Daily Lorri Chinchilla PA ondansetron (pf) (Zofran) (2 mg/mL) injection 4 mg 4 mg Intravenous Q8H PRN Lorri Chinchilla PA 4 mg at 05/12/23 0736 pantoprazole EC (Protonix) tablet 40 mg 40 mg Oral Daily Lorri Chinchilla PA 40 mg at 05/13/23 0825 Or pantoprazole (Protonix) injection 40 mg 40 mg Intravenous Daily Lorri Chinchilla PA 40 mg at 05/12/23 1004 senna-docusate (Pericolace) 8.6-50 mg per tablet 2 tablet 2 tablet Oral Daily Lorri Chinchilla PA 2tablet at 05/13/23 2104 [START ON 05/15/2023] bisacodyL (Dulcolax) suppository 10 mg 10 mg Rectal Daily PRN Lorri Chinchilla PA melatonin tablet 6 mg 6 mg Oral Nightly PRN Lorri Chinchilla PA magnesium hydroxide (Milk of Magnesia) (80mg/mL) oral liquid 30 mL 30 mL Oral Daily PRN Lorri Chinchilla PA niCARdipine (Cardene) (0.2 mg/mL) in sodium chloride 200 mL infusion 0-15 mg/hr Intravenous Continuous Lorri Chinchilla PA influenza vaccine adjuvanted (Adult 65 Yrs +) (FluAD Quad) (PF) IM injection 0.5 mL 0.5 mL Intramuscular Prior to discharge Lorri Chinchilla PA FAMILY HISTORY: No family history on file. SOCIAL HISTORY: Social History Socioeconomic History Marital status: Single Spouse name: Not on file Number of children: Not on file Years of education: Not on file Highest education level: Not on file Occupational History Not on file Tobacco Use Smoking status: Never Smokeless tobacco: Never Vaping Use Vaping Use: Never used Substance and Sexual Activity Alcohol use: No Alcohol/week: 0.0 standard drinks Comment: none Drug use: No Sexual activity: Not on file Other Topics Concern Not on file Social History Narrative Not on file Social Determinants of Health Financial Resource Strain: Not on file Food Insecurity: Not on file Transportation Needs: Not on file Physical Activity: Not on file Housing Stability: Not on file REVIEW OF SYSTEMS: 12+ point review of systems was reviewed in detailed and negative apart from the HPI. Objective: Physical Examination: Patient Vitals for the past 24 hrs: Temp Heart Rate From SP02 Pulse Resp BP SpO2 O2 Flow Rate (L/min) O2 Device 05/13/23 0800 36 ??C (96.8 ??F) 92 bpm 95 17 -- 94 % 2 L/min NC 05/13/23 0900 -- 87 bpm 88 13 -- 93 % -- -- 05/13/23 1000 36 ??C (96.8 ??F) 98 bpm (!) 101 16 -- 93 % 2 L/min NC 05/13/23 1100 -- (!) 104 bpm (!) 104 20 -- 93 % -- -- 05/13/23 1200 36 ??C (96.8 ??F) (!) 102 bpm (!) 103 15 -- 92 % 6 L/min NC 05/13/23 1259 36 ??C (96.8 ??F) (!) 109 bpm (!) 106 19 -- 96 % 5 L/min NC 05/13/23 1400 36 ??C (96.8 ??F) (!) 103 bpm (!) 103 19 104/43 96 % 5 L/min NC 05/13/23 1503 -- (!) 101 bpm (!) 102 18 102/43 97 % -- -- 05/13/23 1600 36.5 ??C (97.7 ??F) 99 bpm 100 16 96/47 98 % 5 L/min NC 05/13/23 1611 -- 100 bpm (!) 102 16 -- 96 % -- -- 05/13/23 1800 36.3 ??C (97.3 ??F) (!) 107 bpm (!) 109 18 95/53 96 % 2 L/min NC 05/13/23 1945 36.6 ??C (97.9 ??F) (!) 103 bpm (!) 103 19 (!) 85/57 97 % 3 L/min NC 05/13/23 2000 -- (!) 105 bpm (!) 107 26 98/54 96 % -- -- 05/13/23 2100 -- (!) 106 bpm (!) 106 23 97/57 96 % -- -- 05/13/23 2200 -- 95 bpm 96 16 93/52 98 % 2 L/min NC 05/14/23 0000 36.5 ??C (97.7 ??F) 93 bpm 94 14 (!) 88/52 98 % 2 L/min NC 05/14/23 0200 -- 94 bpm 96 16 112/59 97 % 2 L/min NC 05/14/23 0400 -- 89 bpm 91 12 97/65 97 % 2 L/min NC 05/14/23 0600 36.5 ??C (97.7 ??F) 100 bpm (!) 101 15 107/54 96 % 2 L/min NC General: Pleasant, older frail female, appears older than stated age, no acute distress HEENT: Normocephalic, atraumatic, benign NECK: Supple, no masses, FROM CV: Tachycardic rate, Rhythm: Regular rhythm, II/ crescendo-decrescendo murmur best heard at the USBs, diminutive S2, no rubs, no ventricular heaves RESP: CTAB, moving air well, symmetric chest excursion GI: Soft, nd, nttp EXT: No cyanosis/clubbing,trivial abdominal trace edema, preserved distal pulses NEURO: No gross focal deficits DERM: No rash, wwp 7.2 132 94 98 3.6 5.8 8.5 11.2 H/H 112 4.1 18 4.8 -- .4 -- 20.3 319 437 -- 86 87.2N (.9B) / 3.9L / 7.9M / --E / .1B Recent Results (from the past 24 hour(s)) APTT Result Value Ref Range PTT 27 25 - 37 sec Prothrombin Time Result Value Ref Range PT 14.6 (H) 9.4 - 12.5 sec INR 1.3 TTE 05/08/23 Interpretation Summary -Left ventricle is [...] Mitral regurgitation is similar. 12 lead EKG: Cardiac Cath 11/09/2022 Coronary Angiography: Dominance: Co-dominant [...] performed. Conclusions: * Nonobstructive coronary artery disease Assessment and Plan: Patient ID: Purnima Thacker is a 67 y.o. 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 She is now status post TAVR Rvits-ms-Afekj with a 23 mm Lai 3 THV 05/12/[address] Sharma. Janet TAVR case notable for coronary LAD protective MINNA. Status post TAVR, the patient was transferred to [facility] for pressor and inotropic support. Pressors weaned overnight 05/12. Cardiac indices by thermodilution remained >3 with continued Milrinone 0.125 mcg/kg/min prior to PAC removal. EKG todayNSR with stable [place]/QRS intervals. Hemoglobin slowly down-trending (8.2-> 7.8-> 7.2). Cr continues to rise in the setting of pre-TAVR cardiogenic shock, TAVR CTA contrast load, and complex TAVR case (Cr 1.86--> 2.01--> 3.15->4.8). Primary team will trial IV diuresis and consult nephrology today. Transaminitis now down-trending. Continue ASA 81 daily and Ticagrelor 90 BID. Patient understands importance of long-term pre-dental antibiotic prophylaxis. - Continue ASA 81 daily - Continue Ticagrelor 90 mg BID - Appreciate continued hemodynamic monitoring and management by primary team - Daily EKGs - Long-term pre-dental antibiotic ppx Follow up with [facility] in 30 days with echo, CBC, and BMP Brody Kaplan APRN Structural Heart Team Pager [phone] Team Office Please see addendum by Dr. Sharma for final plan I have seen the patient in person and reviewed Brody Kaplan APRN's above history and I agree with the details as written. The assessment and plan were formulated in discussion with me and I agree with them as documented. Cr continues to rise, likely combination of acute on chronic decompensated heart failure, ATN from cardiogenic shock, and DYLAN with her contrast exposure. Nephrology consultationtoday. Antelmo Sharma MD Pager [phone] * Antelmo Cardenas RN - 05/14/2023 5:18 AM EDT Pt AOx4, complaining of mild/moderate generalized pain (states her Meloxicam is effective at home) currently refusing prn oxycodone. NAEON, hemodynamically stable on Milrinone, Maps >65, ST in [id number]'s down to NSR with frequent multifocal PVC's. Remains on 2L Nasal cannula with congested but largely unproductive cough. Remains grossly oliguric, creatinine bumped to 4.8 from 3.15 on midnight labs, with electrolytes remaining stable. Last BM 05/10, took evening pericolace, some abdominal tenderness alleviated with passing flatus. Ambulating well with nurse assist to bed and chair with minimal symptoms. * Antelmo Sharma MD - 05/13/2023 12:09 PM EDT Images from the original note were not included. [place] [address] STRUCTURAL HEART DISEASE PROGRESS NOTE PRIMARY CARE PROVIDER: Magdalena Acosta MD REFERRING PROVIDER: Mario Alberto Chin REASON FOR CONSULTATION: Bioprosthetic aortic valve stenosis HISTORY OF PRESENT ILLNESS: Patient ID: Purnima Thacker is a 67 y.o. 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 She is now status post TAVR Ayiau-wo-Jroop with a 23 mm Lai 3 THV 05/12/[address] Sharma. Preliminary findings: Successful right transfemoral TAVR Oksjx-xu-Qyciv with a 23 mm Lai 3 THV. [...] result with ARNEL-3 flow and no residual dissection or perforation. Interval Events: - Transferred to CVCC post- TAVR for pressor/inotropic support (Levo, vaso, epi, milrinone gtts) - 05/12/ Extubated 1600 - Pressors weaned overnight - Decreased u/o overnight s/p gentle colloid resuscitation with good effect - CI 3.2 by TD with Milrinone 0.125 this morning - H/H 7.8/22 - Cr 1.86--> 2.01--> 3.15 - AST/ALT down-trending - 2L NC O2 during rounds - EKG this morning NSR, stable Naresh/QRSi PROBLEM LIST: Patient Active Problem List Diagnosis S/P TAVR (transcatheter aortic valve replacement) Cardiogenic shock Symptomatic severe aortic stenosis with low ejection fraction Mild coronary artery disease by [facility] 11/09/2022 Heart failure with reduced ejection fraction due to heart valve disease Mixed connective tissue disease Neck pain Diverticulosis Hyperlipidemia, unspecified Rosacea 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, 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) Aortic stenosis Chronic idiopathic neutropenia NICOLAS (obstructive sleep apnea) Depressive disorder Essential tremor Obesity Essential hypertension MEDICATIONS: Current Facility-Administered Medications Medication Dose Route Frequency Provider Last Rate Last Admin oxyCODONE (Roxicodone) tablet 5 mg 5 mg Oral Q4H PRN Bonita Miguel PA milrinone (Primacor) (0.2 mg/mL) in dextrose 5% 100 mL infusion 0.125 mcg/kg/min Intravenous Continuous Nico Palacios PA 2.9 mL/hr at 05/13/23 0600 0.125 mcg/kg/min at 05/13/23 0600 ticagrelor (Brilinta) tablet 90 mg 90 mg Oral BID Lorri Chinchilla PA 90 mg at 05/13/23 0825 sodium chloride 0.9 % (flush) (BD PosiFlush Normal Saline 0.9) flush 5 mL 5 mL Intravenous BID Lorri Chinchilla PA 5 mL at 05/13/23 0825 sodium chloride 0.9 % (flush) (BD PosiFlush Normal Saline 0.9) flush 5-20 mL 5- 20 mL Intravenous Q1Min PRN Lorri Chinchilla PA sodium chloride 0.9% infusion 10-30 mL/hr Intravenous Daily PRN Lorri Chinchilla PA 10 mL/hr at 05/13/23 0600 10 mL/hr at 05/13/23 0600 sodium chloride 0.9% infusion 10-30 mL/hr Intravenous Daily PRN Lorri Chinchilla PA 10 mL/hr at 05/13/23 0600 10 mL/hr at 05/13/23 0600 aspirin chewable tablet 81 mg 81 mg Oral Daily Lorri Chinchilla PA 81 mg at 05/13/23 0824 Or aspirin suppository 300 mg 300 mg Rectal Daily Lorri Chinchilla PA ondansetron (pf) (Zofran) (2 mg/mL) injection 4 mg 4 mg Intravenous Q8H PRN Lorri Chinchilla PA 4 mg at 05/12/23 0736 pantoprazole EC (Protonix) tablet 40 mg 40 mg Oral Daily Lorri Chinchilla PA 40 mg at 05/13/23 0825 Or pantoprazole (Protonix) injection 40 mg 40 mg Intravenous Daily Lorri Chinchilla PA 40 mg at 05/12/23 1004 senna-docusate (Pericolace) 8.6-50 mg per tablet 2 tablet 2 tablet Oral Daily Lorri Chinchilla PA [START ON 05/15/2023] bisacodyL (Dulcolax) suppository 10 mg 10 mg Rectal Daily PRN Lorri Chinchilla PA melatonin tablet 6 mg 6 mg Oral Nightly PRN Lorri Chinchilla PA acetaminophen (Tylenol) tablet 975 mg 975 mg Oral Q6H PRN Lorri Chinchilla PA 975 mg at 05/12/232023 magnesium hydroxide (Milk of Magnesia) (80mg/mL) oral liquid 30 mL 30 mL Oral Daily PRN Lorri Chinchilla PA niCARdipine (Cardene) (0.2 mg/mL) in sodium chloride 200 mL infusion 0-15 mg/hr Intravenous Continuous Lorri Chinchilla PA atorvastatin (Lipitor) tablet 10 mg 10 mg Oral QPM Lorri Chinchilla PA 10 mg at 05/12/232023 influenza vaccine adjuvanted (Adult 65 Yrs +) (FluAD Quad) (PF) IM injection 0.5 mL 0.5 mL Intramuscular Prior to discharge Lorri Chinchilla PA FAMILY HISTORY: No family history on file. SOCIAL HISTORY: Social History Socioeconomic History Marital status: Single Spouse name: Not on file Number of children: Not on file Years of education: Not on file Highest education level: Not on file Occupational History Not on file Tobacco Use Smoking status: Never Smokeless tobacco: Never Vaping Use Vaping Use: Never used Substance and Sexual Activity Alcohol use: No Alcohol/week: 0.0 standard drinks Comment: none Drug use: No Sexual activity: Not on file Other Topics Concern Not on file Social History Narrative Not on file Social Determinants of Health Financial Resource Strain: Not on file Food Insecurity: Not on file Transportation Needs: Not on file Physical Activity: Not on file Housing Stability: Not on file REVIEW OF SYSTEMS: 12+ point review of systems was reviewed in detailed and negative apart from the HPI. Objective: Physical Examination: Patient Vitals for the past 24 hrs: Temp Heart Rate From SP02 Pulse Resp SpO2 FiO2 (%) O2 Flow Rate (L/min) O2 Device 05/12/23 1300 36.1 ??C (97 ??F) 87 bpm 89 17 98 % 40 % -- Ventilator 05/12/23 1400 36.2 ??C (97.2 ??F) 91 bpm 90 17 98 % 40 % -- Ventilator 05/12/23 1406 -- 61 bpm 91 17 98 % -- -- -- 05/12/23 1430 -- 90 bpm 91 18 98 % -- -- -- 05/12/23 1500 36.3 ??C (97.3 ??F) 85 bpm 90 18 98 % 40 % -- Ventilator 05/12/23 1528 -- -- -- 21 98 % -- -- -- 05/12/23 1558 -- -- -- 9 99 % -- -- -- 05/12/23 1600 36.3 ??C (97.3 ??F) 96 bpm 97 12 99 % -- 40 L/min Ventilator 05/12/23 1608 -- -- -- 19 98 % -- 5 L/min NC 05/12/23 1610 -- -- -- 13 97 % -- 4 L/min -- 05/12/23 1800 36.2 ??C (97.2 ??F) 87 bpm 87 11 98 % -- 4 L/min NC 05/12/23 1806 -- 89 bpm 88 13 97 % -- -- -- 05/12/23 2000 36.4 ??C (97.5 ??F) 91 bpm 96 13 96 % -- 2 L/min NC 05/12/23 2200 -- 93 bpm 93 12 95 % -- 2 L/min NC 05/13/23 0000 36.1 ??C (97 ??F) 97 bpm 99 15 93 % -- 2 L/min NC 05/13/23 0200 35.9 ??C (96.6 ??F) 93 bpm 94 16 92 % -- 2 L/min NC 05/13/23 0400 35.9 ??C (96.6 ??F) 88 bpm 89 12 96 % -- 2 L/min NC 05/13/23 0500 -- 90 bpm 90 11 96 % -- -- -- 05/13/23 0600 36 ??C (96.8 ??F) 97 bpm 97 14 92 % -- 2 L/min NC 05/13/23 0800 36 ??C (96.8 ??F) 92 bpm 95 17 94 % -- 2 L/min NC 05/13/23 0900 -- 87 bpm 88 13 93 % -- -- -- 05/13/23 1000 36 ??C (96.8 ??F) 98 bpm (!) 101 16 93 % -- 2 L/min NC 05/13/23 1100 -- (!) 104 bpm (!) 104 20 93 % -- -- -- General: Pleasant, older frail female, appears older than stated age, no acute distress HEENT: Normocephalic, atraumatic, benign NECK: Supple, no masses, FROM CV: Tachycardic rate, Rhythm: Regular rhythm, II/ crescendo-decrescendo murmur best heard at the USBs, diminutive S2, no rubs, no ventricular heaves RESP: CTAB, moving air well, symmetric chest excursion GI: Soft, nd, nttp EXT: No cyanosis/clubbing,trivial abdominal trace edema, preserved distal pulses NEURO: No gross focal deficits DERM: No rash, wwp 7.8 132 95 82 3 5.5 8.3 8.6 H/H 130 3.8 20 3.15 .3 .5 -- 22.2 792 903 -- 85 88.1N (.8B) / 3.1L / 7.9M / --E / .1B Recent Results (from the past 24 hour(s)) APTT Result Value Ref Range PTT 27 25 - 37 sec Prothrombin Time Result Value Ref Range PT 14.6 (H) 9.4 - 12.5 sec INR 1.3 BLOOD GAS 2 ARTERIAL Result Value Ref Range pH Art 7.39 7.35 - 7.45 pCO2 Art 33 (L) 35 - 45 mmHg pO2 Art 101 85 - 104 mmHg HCO3 Art 19.5 (L) 20.0 - 26.0 mmol/L BE Art -5.5 (L) -3.0 - 3.0 mmol/L Hgb Blood Gas 9.8 (L) 11.7 - 15.5 g/dL O2HB Art 95.2 94.0 - 97.0 % COHB Art 0.2 % METHB Art 0.8 <=1.5 % Na Whole Blood 129 (L) 135 - 145 mmol/L K Whole Blood 3.8 3.5 - 5.0 mmol/L ICa Whole Blood 1.05 (L) 1.15 - 1.33 mmol/L CL Whole Blood 96 (L) 98 - 107 mmol/L Gluc Whole Bld 178 65 - 199 mg/dL Lactate WB 1.5 0.5 - 2.2 mmol/L FIO2 Art 40 % PF Ratio Art 252 Coox2 Result Value Ref Range pO2 Coox 37 mmHg Hgb Blood Gas 9.5 (L) 11.7 - 15.5 g/dL O2HB Coox 59.9 % COHB Coox 0.3 % METHB Coox 0.7 <=1.5 % Source Coox Mixed Venous BLOOD GAS 2 ARTERIAL Result Value Ref Range pH Art 7.37 7.35 - 7.45 pCO2 Art 36 35 - 45 mmHg pO2 Art 102 85 - 104 mmHg HCO3 Art 20.4 20.0 - 26.0 mmol/L BE Art -4.8 (L) -3.0 - 3.0 mmol/L Hgb Blood Gas 12.7 11.7 - 15.5 g/dL O2HB Art 95.4 94.0 - 97.0 % COHB Art 0.3 % METHB Art 0.7 <=1.5 % Na Whole Blood 129 (L) 135 - 145 mmol/L K Whole Blood 3.7 3.5 - 5.0 mmol/L ICa Whole Blood 1.05 (L) 1.15 - 1.33 mmol/L CL Whole Blood 95 (L) 98 - 107 mmol/L Gluc Whole Bld 168 65 - 199 mg/dL Lactate WB 1.8 0.5 - 2.2 mmol/L FIO2 Art 40 % PF Ratio Art 255 Troponin Result Value Ref Range Troponin-T HS 1,022 (H) <=14 ng/L TTE 05/08/23 Interpretation Summary -Left ventricle is [...] Mitral regurgitation is similar. 12 lead EKG: Cardiac Cath 11/09/2022 Coronary Angiography: Dominance: Co-dominant [...] performed. Conclusions: * Nonobstructive coronary artery disease Assessment and Plan: Patient ID: Purnima Thacker is a 67 y.o. 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 She is now status post TAVR Cskqj-lh-Fbxaj with a 23 mm Lai 3 THV 05/12/[address] Sharma. Janet TAVR case notable for coronary LAD protective MINNA. Status post TAVR, the patient was transferred to CV for pressor and inotropic support. Pressors weaned overnight. Cardiac indices by thermodilution remain greater than 3 with continued Milrinone 0.125 mcg/kg/min. EKG today NSR with stable [place]/QRS intervals. Hemoglobin 7.8 today from 8.5, likely dilutional s/p gentle volume resuscitation overnight. Cr continues to rise in the setting of pre-TAVR cardiogenic shock, TAVR CTA contrast load, and complex TAVR case (Cr 1.86--> 2.01--> 3.15). Transaminitis now down-trending. Continue ASA 81 daily and Ticagrelor 90 BID. Patient understands importance of long-term pre-dental antibiotic prophylaxis. - Continue ASA 81 daily - Continue Ticagrelor 90 mg BID - Appreciate continued hemodynamic monitoring and management by primary team - Daily EKGs - Long-term pre-dental antibiotic ppx Follow up with [facility] in 30 days with echo, CBC, and BMP Brody Kaplan APRN Structural Heart Team Pager [phone] Team Office Please see addendum by Dr. Sharma for final plan I have seen the patient in person and reviewed Brody Kaplan APRN's above history and I agree with the details as written. The assessment and plan were formulated in discussion with me and I agree with them as documented. Sitting in chair at the bedside recovering. Titrating down on milrinone. Willneed watch UOP and Cr carefully. On DAPT moving forward. Antelmo Sharma MD Pager [phone] * Bonita Miguel PA - 05/13/2023 8:30 AM EDT Cardiac Surgery Progress Note Purnima Thacker is a 67 y.o. 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 PMH of s/p tissue AVR (2017), mixed connective tissue disease HTN, HLD, NICOLAS, diverticulosis, rosacea, essential tremor, and depression. 24h Events: From blood bank laboratory technologist for above procedure Extubated at ~1600 to 4L NC Out on Epi/Mil/Levo/Vaso, weaned off Epi, Levo, Vaso Dec Mil to 0.125 Low UOP overnight, received albumin with minimal improvement Cr uptrending (2->3), LFTs downtrending S: Feeling well this morning. Complaining of pain all over d/t not taking baseline meloxicam. Denies lightheadedness/dizziness, visual changes, chest pain, shortness of breath, N/V, abdominal pain, or numbness/weakness of extremities. Passing flatus. BM-. Tolerating sips and chips. Has been OOB to c hair. Has not yet ambulated. O: Temp: [35.9 ??C (96.6 ??F)-36.4 ??C (97.5 ??F)] Heart Rate: [87-104] Resp: [9-21] BP: -- SpO2: [92 %-99 %] Heart Rate from SpO2: [61 bpm-104 bpm] Hemodynamics: CVP 5; PAP 38/9; CI 3.3 Drips: Mil 0.125 05/12 0701 - 05/13 0700 In: 2127.3 [P.O.:350; I.V.:1187.3] Out: 510 [Urine:510] Net +1.6L/24hr Admit weight: 76.4 kg Current weight: Weight: 75.3 kg (166 lb 0.1 oz) Physical Exam: General: Sitting in chair. NAD. Pleasant. Neuro: Awake and alert. Speech clear and appropriate. Moves all extremities with equal strength, nofocal deficit. Lungs: Diminished at bases but otherwise CTA bilaterally, no wheezes, crackles, rhonchi. Resp effort good, non-labored on 2L NC. Heart: RRR, S1S2. Grade III/ RUSTY. No rubs, or gallops. Sinus 80s on tele. Abdomen: Soft, NTND, +bowel sounds. Ext: Warm, well perfused. No BLE edema. Groins soft b/l, no evidence of hematoma. Tubes/Lines/Drains: Winfall, RIJ, A-line, Art, PIV Assessment/Plan: 67 y.o. female 1 Day Post-Op s/p Janet TF TAVR. Preoperative presentation in cardiogenic shock. #Severe prosthetic AV stenosis s/p Janet TF TAVR #Cardiogenic shock #s/p LM stent placement ASA 81' Ticagrelor - will continue for 1 year Continue mil 0.125 Advance diet, RBOs Protonix Wean NC as tolerated to maintain SpO >92%, pulm toilet PT consult for deconditioned state #HLD D/c Lipitor for now given LFTs, restart later #HTN Hold home Losartan, Diltiazem #Mixed connective tissue disease Hold home Meloxicam, Plaquenil Oxy prn #EVANS Expected rise in Cr s/p dye from TAVR Avoid nephrotoxic drugs #Transaminitis LFTs downtrending, recheck tomorrow Check coags Hold APAP Disposition: CVCC Status Attempt Cardiopulmonary Resuscitation - Inpatient Discussed with attending surgeon on rounds this morning. EKATERINA Morales 05/13/2023 Between the hours of 1800 - 0600 and on the weekends please page [phone]. * Onelia Schwartz MD - 05/12/2023 1:44 PM EDT CRITICAL CARE ATTENDING PROGRESS NOTE ASSESSMENT, MANAGEMENT, and DECISION MAKING: NEURO: Has moved all extremities spontaneously. Continue with propofol for sedation, fentanyl for analgesia. RESP: On supportive ventilator settings. Anticipate weaning after period of time to allow stabilization of access sites. CV: Now s/p TAVR. Markedly increased cardiac output. Continuing with inotrope although at a lower infusion rate. Ongoing need for pressor support; anticipate the need for this will decrease with decreasing sedation. FEK: Rising creatinine. Decreased urine output. Optimize renal perfusion, dose medications appropriately, avoid nephrotoxins. Low threshold for renal replacement therapy. Patient seen and examined. Purnima Thacker is a 67 y.o. 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 Active Non-Hospital Problems Diagnosis Mixed connective tissue disease Neck pain Diverticulosis Rosacea Aortic stenosis Chronic idiopathic neutropenia Depressive disorder Essential tremor Obesity Essential hypertension EXAM: Temp: [36 ??C (96.8 ??F)-38.1 ??C (100.6 ??F)] Heart Rate: [89-129] Resp: [15-34] BP: (71-97)/(37-74) SpO2: [86 %-100 %] Heart Rate from SpO2: [87 bpm-121 bpm] Physical Exam Constitutional: Appearance: She is obese. She is not ill-appearing. Interventions: She is sedated and intubated. Cardiovascular: Rate and Rhythm: Tachycardia present. Pulmonary: Effort: Pulmonary effort is normal. She is intubated. Breath sounds: Normal breath sounds. Skin: General: Skin is cool. Body mass index is 31.03 kg/m??. IS PATIENT CRITICALLY ILL ? Is there a high potential of sudden, clinically significant, or life threatening deterioration? Yes Is there a need for direct personal assessment and management to treat/prevent multiple vital organfailure/deterioration? Yes PATIENT IS CRITICALLY ILL WITH THESE DIAGNOSES BEING MANAGED: Shock Cardiogenic I personally performed 45 minutes of aggregate critical care time exclusive of procedures and teaching. This includes time spent during direct patient evaluation and reassessment, interpreting diagnostic tests, directing life and/or organ supporting interventions and documentation on the unit. Timenoted does not include overlapping time with other physicians or advanced practice providers. * Raymond Thapa RT - 05/12/2023 9:58 AM EDT CTICU Protocol: Yes Vent Settings: Ventilator Mode: SIMV (VC) + PS Pressure Control above PEEP: PEEP Set: 8 (per MD Rousseau) Resp Rate Set: (S) 18 FiO2: 40 % PSV: 5 Ventilator Measurements: Resp: 17 Vt Exhaled: 364 PIP: 20 MAP: 10.6 Plateau Press: 18 Ve: 5.8 PEEP: 8 cmH20 SpO2: 98 % EtCO2: 32 mmHg Airway: 8.0 @ 21 cm at the Teeth. Skin Integrity: WDL Breath Sounds: Clear / Dim Secretions: Small, Thin, White Assessment / Events: Received patient from OR, placed in SIMV at 8cc/kg of IBW, PEEP +8 per MD Rousseau. 0955: ETT @ 22cm. Per CXR / MD Rousseau, ETT retracted 1cm, new location 21cm. 1014: ABG 7.18/45/186/16 Bicarb Admin. 1024: Per ABG RR^18, FiO2 weaned to 40%. 1105: ABG 7.34/42/73/22 1963-9088: SBT performed and passed on these settings PSV 5/8 40%. End SBT Vitals and ABG WDL. 1608: With a positive cuff leak, extubated and placed patient on 5L NC, patient able to phonate with clear BBS and no stridor noted. 1610: NC weaned to 4L , per SpO2. Patient stable on NC post extubation. Plan: Continue to support patient with supplemental O2, wean as tolerated. Home CPAP at bedside as needed. RT Parth * Radha Hollins MD - 05/12/2023 7:45 AM EDT Images from the original note were not included. Cardiology ICU Progress Note Patient info: Name: Purnima Thacker : 1955 PCP: Magdalena Acosta MD PCP phone number: [phone] Date of Admission: 05/08/2023 ( Hospital Day 4 days ) Attending:Radha Hollins MD ID: Purnima Thacker is a 67 y.o. female with s/p bioprosthetic AVR in 2016 with recent concern for severe restenosis, HTN, HLD, mixed connective tissue disease, currently being managed for symptomatic severe and acute exacerbation of heart failure. 24 Hour Events/Subjective: Yesterday: --Upgraded from the floor to the CVCC out of concern for cardiogenic shock. Overnight: --Hands were cold, oliguric, lactate uptrending from 3.1 to 4.8. Khushi placed, initial cardiac index of 1.1. Started on dobutamine and vasopressin. Was tachycardic so switched dobutamine to milrinone. Also added norepinephrine. Index improved to 1.8. LFTs elevated, CXR with flash pulmonary edema. Diuresed with 40mg Lasix, then 160mg Lasix, then 6mg bumex + metolazone. Minimal urine output. This AM: --Feeling okay this morning, just warm. Vasoactive & Sedating Medications: Infusions: Continuous Infusions: [SEP Hold] vasopressin 0.08 Units/min (05/12/23599) [SEP Hold] milrinone 0.375 mcg/kg/min (05/12/23599) [SEP Hold] DOBUTamine Stopped (05/12/23119) [SEP Hold] NORepinephrine 6 mcg/min (05/12/23641) Ventilator Settings: Mode: , SET RR: TV: PEEP: FiO2: VARIABLES PATIENT RR: PIP: Pplateau: SpO2: OUTPUT Resp: (!) 31 SpO2: 94 % ABG (Arterial Blood Gas) Recent Labs 05/12/23 0705/12/2331705/12/2310505/11/23193905/11/237 PHART -- 7.34* 7.34* -- -- [id number] -- 30* 30* -- -- PO2ART -- 72* 81* -- -- [id number] -- 16.0* 15.7* -- -- LACTATEVEN 2.4* 2.7* 2.7* 4.8* 2.9* VBG (Venous Blood Gas) Recent Labs 05/12/23 0705/12/2331705/12/2310505/11/23193905/11/231446 LACTATEVEN 2.4* 2.7* 2.7* 4.8* 2.9* Mixed Venous Sat Recent Labs 05/12/23 0508 05/12/23 0321 05/12/23 0114 05/12/23 0030 [id number] 30.7 32.7 37.3 25.1 Objective: Vitals Last value Range last 24 hrs Temperature Temp: (!) 38.1 ??C (100.6 ??F) Temp: [36 ??C (96.8 ??F)-38.1 ??C (100.6 ??F)] Heart Rate Heart Rate: (!) 121 Heart Rate: [108-121] Blood Pressure BP: 92/59 BP: (71-97)/(37-83) Art Line BP BP (Arterial Line): 97/61 BP (Arterial Line): (93-101)/(53-65) MAP (NBP): [50 mmHg-89 mmHg] Respiratory Rate Resp: (!) 31 Resp: [19-34] SpO2 SpO2: 94 % SpO2: [86 %-99 %] Oxygen Delivery Oxygen Therapy O2 Device: Nasal cannula O2 Flow Rate (L/min): 6 L/min Reason for Oxygen: New documented hypoxia Intake/Output Summary (Last 24 hours) at 05/12/2023 0745 Last data filed at 05/12/2023 0600 Gross per 24 hour Intake 1323.55 ml Output 535 ml Net 788.55 ml Patient Vitals for the past 168 hrs: Weight 05/12/23 0300 74.5 kg (164 lb 3.9 oz) 05/11/23 0347 77.4 kg (170 lb 9.6 oz) 05/10/23 0400 78.1 kg (172 lb 1.6 oz) 05/09/23 2336 78.4 kg (172 lb 14.4 oz) 05/09/23 0400 76.8 kg (169 lb 5 oz) 05/08/23 0900 76.4 kg (168 lb 6.9 oz) Admit wt: 76.4 kg Physical Exam: Gen: in bed in NAD. HEENT: anicteric, EOMI intact, CV: tachycardic, systolic murmur Resp: bilateral crackles, normal work of breathing on NC Abd: normal bowel sounds, soft, non-tender to palpation, no rebound or guarding Ext: 2+ distal pulses, no pedal edema Neuro: no focal deficits noted, moves all extremities spontaneously Psych: cooperative. Skin: no rashes, lesions, or ulcerations noted Lines/Drains/Airways Lines: Pulmonary Artery Catheter - Single Lumen 05/12/2329 Right internal jugular vein (Active) Venous Infusion Patency/Maintenance infusing 05/12/23199 CVP/CO Port Patency/Maintenance infusing 05/12/23199 PA Port Patency/Maintenance infusing 05/12/23199 Dressing dressing dry and intact 05/12/23199 Securement secured with sutures 05/12/23199 PA Catheter Markings (cm) 60 05/12/23199 Phlebitis 0-->no symptoms 05/12/23199 Infiltration 0-->no symptoms 05/12/23199 Waveform with whip 05/12/23199 Pressure Catheter Interventions line leveled/zeroed;system flushed 05/12/23199 Percutaneous Central Line - Single Lumen 05/12/2329 internal jugular vein, right (Active) Indication/Daily Review of Necessity Invasive hemodynamic monitoring (CVP, PA);Medications known tocause phlebitis (vasopressors, concentrated electrolytes, TPN, chemotherapy) 05/12/23199 Site Preparation/Maintenance dressing: dry and intact 05/12/23199 Dressing change due 05/19/23 05/12/23199 Securement sutures, secured with 05/12/23199 Patency/Maintenance infusing 05/12/23199 Phlebitis 0-->no symptoms 05/12/23599 Infiltration 0-->no symptoms 05/12/23599 Site Signs/Symptoms no redness;no swelling;no warmth 05/12/23199 Interventions line leveled/zeroed 05/12/23199 LDA Cath/EP Sheath 05/12/23 Right Femoral (Active) LDA Cath/EP Sheath 05/12/23 Right Femoral (Active) LDA Cath/EP Sheath 05/12/23 Left Femoral (Active) LDA Cath/EP Sheath 05/12/23 Left Femoral (Active) Peripheral IV Line - Single Lumen 05/08/23 1202 cephalic vein (lateral side of arm), left 22 gauge;1 in length (Active) Indication/Daily Review of Necessity medication therapy continuous 05/11/231999 Site Preparation/Maintenance dressing: dry and intact 05/11/231999 Securement catheter stabilization device, secured with 05/11/231999 Patency/Maintenance infusing 05/11/231999 Phlebitis 0-->no symptoms 05/12/23599 Infiltration 0-->no symptoms 05/12/23599 Site Signs/Symptoms no redness;no swelling;no warmth 05/11/231999 Interventions other (see comments) 05/11/231499 Peripheral IV Line - Single Lumen 05/11/231999 22 gauge (Active) Indication/Daily Review of Necessity medication therapy intermittent 05/11/231999 Site Preparation/Maintenance dressing: dry and intact 05/11/231999 Securement catheter stabilization device, secured with 05/11/231999 Patency/Maintenance flushed without difficulty;blood return, able to obtain 05/11/231999 Phlebitis 0-->no symptoms 05/12/23599 Infiltration 0-->no symptoms 05/12/23599 Site Signs/Symptoms no redness;no swelling;no warmth 05/11/231999 Labs: Recent Labs 05/12/23 0105 05/11/23 0442 05/10/23 0228 05/09/23 0400 05/08/23 1138 WBC 9.0 7.0 5.2 6.4 4.1 HGB 9.8* 11.1* 10.2* 10.2* 10.2* HCT 28.7* 32.7* 30.2* 30.3* 29.6* PLATELET 186 165 151 151 136* MCV 95.3* 95.1* 97.1* 96.2* 97.0* Recent Labs 05/12/23 0600 05/12/23 0105 05/11/23 0442 05/10/23 0228 05/09/23 0400 05/08/23 1600 05/08/23 1138 NA 131* 131* 134* 134* 137 -- 139 CL 97* 96* 99 102 102 -- 105 CO2 14* 14* 14* 20* 20* -- 20* K 4.3 4.4 4.6 4.1 4.4 3.9 4.2 MAGNESIUM -- -- -- -- -- 0.82 0.76 PHOS -- -- -- -- -- -- 4.7* CALCIUM 8.6 9.0 9.6 9.3 9.3 -- 9.4 BUN 67* 63* 42* 30* 31* -- 27* CREATININE 2.01* 1.86* 1.24* 0.90 1.03 -- 1.02 LFTs Recent Labs 05/12/23 0600 05/12/23 0105 05/11/23 0442 05/10/23 0228 05/09/23 0400 PROT 6.3 6.6 7.2 6.4 6.6 ALBUMIN 3.5 3.9 3.7 3.7 3.8 AST 1,435* 1,227* 144* 24 32* ALT 1,174* 1,097* 130* 14 18 ALKPHOS 100 108* 72 70 78 BILITOT 0.9 1.0 0.8 0.5 0.5 Coags No results for input(s): INR, PT, PTT, FIBRINOGEN, DDIMER in the last 168 hours. Invalid input(s): THROMBIN TIME Cardiac Enzymes Recent Labs 05/11/23 1911 05/08/23 1600 PROBNP >35,000* 25,503* Endocrine Recent Labs 05/08/23 1138 TSH 1.27 No results for input(s): POCGLU in the last 168 hours. Heme No results for input(s): LDH, HAPTOGLOBIN, URICACID in the last 168 hours. Microbiology: none Imaging: Results for orders placed or performed during the hospital encounter of 05/08/23 XR Chest One View (Exam End: 05/10/2023 11:16 AM) Impression Mild interstitial edema with vascular congestion and small pleural effusions. Thank you for letting us participate in the care of this patient. If you are a health care provider and have any questions regarding this report, please contact the number below. For patients who have questions please contact the health memory care program resident that requested your imaging first. Cardiac for Morphology & Function (Exam End: 05/11/2023 10:41 AM) Impression - Bioprosthetic aortic valve that appears to be well positioned and well seated. No significant pannus. Severely calcified bioprosthetic aortic valve leaflets. AVR Ring measurements: Diameters: 23.7 mm x 22.7 mm Area: 438 mm2 Low coronary heights from base of AVR ring. - Normal thoracic aorta. No acute aortopathy. - Moderately reduced LV systolic function on dynamic phase cine imaging, on qualitative analysis. - Diffuse calcification of the coronary arteries. - Trivial pericardial effusion. - Moderate left and small right pleural effusions and associated compressive atelectasis. Pulmonary edema. Thank you for letting us participate in the care of this patient. If you are a health care provider and have any questions regarding this report, please contact the number below. For patients who have questions please contact the health memory care program resident that requested your imaging first. Electronically signed by: Cullen Narayanan MD, [facility] ([phone]), at 05/11/2023 4:[address] Angiogram Abdomen & Pelvis w Contrast (Generic) (Exam End: 05/11/2023 10:41 AM) Impression 1. Pre TAVR measurements as above. 2. Right greater than left perinephric edema. This may be age related. Correlation with urinalysis suggested to exclude urinary tract infection. Unexpected finding. Thank you for letting us participate in the care of this patient. If you are a health care provider and have any questions regarding this report, please contact the number below. For patients who have questions please contact the health memory care program resident that requested your imaging first. Electronically signed by: Eileen Gomes MD, [facility] ([phone]), at 05/11/2023 2:42 PM XR Chest One View (Exam End: 05/11/2023 11:45 PM) Impression * Unchanged mild cardiomegaly. * Improved pulmonary vascular congestion. * Similar small bilateral pleural effusions and subjacent atelectasis which limits evaluation of the underlying parenchyma for any nodules or infiltrates. Thank you for letting us participate in the care of this patient. If you are a health care provider and have any questions regarding this report, please contact the number below. For patients who have questions please contact the health memory care program resident that requested your imaging first. Chest One View (Exam End: 05/12/2023 1:00 AM) Impression * Right IJV approach pulmonary arterial catheter terminates in the right interlobar pulmonary artery near its bifurcation. Please retract 5 to 7 cm. * Increased pulmonary vascular congestion, interstitial/alveolar edema, and medium-sized bilateral pleural effusions. I, Will Rowe, discussed the above findings with Dr. Klaudia Reid on 05/12/2023 at 3:15 AM and verified understanding. Thank you for letting us participate in the care of this patient. If you are a health care provider and have any questions regarding this report, please contact the number below. For patients who have questions please contact the health memory care program resident that requested your imaging first. Assessment & Plan: Purnima Thacker is a 67 y.o. female with s/p bioprosthetic AVR in 2016 with recent concern for severe restenosis, HTN, HLD, mixed connective tissue disease, currently being managed for symptomaticsevere and acute exacerbation of heart failure. Patient is in cardiogenic shock in the setting of her critical aortic stenosis. Currently being supported with pressors and inotrope. She is planned for a [id number] TAVR this morning, which should hopefully improve her cardiac function. Neuro #ANNIE Cardiovascular #Cardiogenic shock #Critical aortic stenosis - Trend CI, Khushi numbers - milrinone, vasopressin, norepinephrine - TAVR this morning - Continue diuresis as needed -continue home ASA -continue home spironolactone Pulmonary #Flash pulmonary edema - Currently on 6L NC - Diurese as needed - Cardiogenic shock management as above Renal/Fluid/Electrolytes #EVANS, likely 2/2 cardiogenic shock --TAVR and shock management as above Gastrointestinal/Metabolic/Nutrition ANNIE NPO for TAVR this morning Hematology ANNIE Infection ANNIE #Routine Diet: NPO diet (Give Meds) DVT prophylaxis:None GI Prophylaxis: none Code Status: Attempt Cardiopulmonary Resuscitation - Inpatient Lincoln Sal MD Internal Medicine, PGY-1 Cardiology [facility] #[id number] 05/12/23 7:45 AM Cardiology Attending Note I concur with the summary of interval events, active hospital-focused problem list and plan of careas described in the note below. I personally reviewed the medications, laboratory results, treatment decisions. Patient had already been taken for TAVR by the time we started CVCC rounds this AM. I was involved in her care by phone overnight but have not examined this patient. Radha Hollins MD, FACP, FACC Section of Cardiovascular Medicine [facility] [employer] Or Work Dispatchercarburizer Pending Sale To [employer] at [facility] * Noreen Deutsch RN - 05/12/2023 5:21 AM EDT 05/12/23 0500 Vital Signs Heart Rate from SpO2 (!) 117 bpm Heart Rate (!) [address] BP (!) 89/53 MAP (NBP) 65 mmHg BP (Arterial Line) 98/58 MAP (Arterial) 72 mmHg CVP (mmHg) 12 mmHg Resp 22 SpO2 97 % Oxygen Therapy O2 Device NC O2 Flow Rate (L/min) 6 L/min Hemodynamic Monitoring PAP (mmHg) 44/24 PAP (mean) 33 PCWP (mmHg) 24 mmHg CO (l/min) 3.1 l/min CI (l/min/m2) 1.8 l/min/m2 SVR (dyne*sec)/cm2 1522 (dyne*sec)/cm2 SVRI (dyne*sec)/cm2 2648 (dyne*sec)/cm5 Stroke Volume (ml) 26.7 ml PVR (dyne*sec)/cm2 232 (dyne*sec)/cm2 SVO2 (%) 30.7 % (Kiara CI 1.3) Milrinone @ 0.375 Vaso @ 0.08 Levophed @ 5 * Noreen Deutsch RN - 05/12/2023 2:24 AM EDT 05/12/23 0200 Vital Signs Heart Rate from SpO2 95 bpm Heart Rate (!) 113 BP (!) 85/40 MAP (NBP) 55 mmHg BP (Arterial Line) 101/65 MAP (Arterial) 79 mmHg CVP (mmHg) 17 mmHg Resp 21 SpO2 (!) 86 % Hemodynamic Monitoring PAP (mmHg) 49/31 PAP (mean) 37 PCWP (mmHg) 24 mmHg CO (l/min) 2.5 l/min CI (l/min/m2) 1.5 l/min/m2 SVR (dyne*sec)/cm2 1840 (dyne*sec)/cm2 SVRI (dyne*sec)/cm2 3202 (dyne*sec)/cm5 Stroke Volume (ml) 21.9 ml PVR (dyne*sec)/cm2 222 (dyne*sec)/cm2 Milrinone @ 0.25 Vasopressin @ 0.08 Levophed @ 4 * Onelia Schwartz MD - 05/12/2023 1:25 AM EDT CRITICAL CARE ATTENDING PROGRESS NOTE ASSESSMENT, MANAGEMENT, and DECISION MAKING: History as noted. In apparent cardiogenic shock with reduced LVEF and severe aortic valve stenosis.PA catheter demonstrating increased PAOP and severely reduced cardiac output, consistent with physical examination. Started on inotropic support and vasopressor support with significant increase in cardiac output and mixed venous. Some modest improvement in systemic symptom reported by patient. Planned for TAVR early this AM. Inotropic support has demonstrated efficacy. Continue with milrinone. The systemic vasodilation observed with this drug must be avoided and utilization of pressor support with vasopressin and/or norepinephrine is of paramount importance. Note that dobutamine was initially tried but tachycardia was o bserved. Avoid severe tachycardia. Hold heparin pending procedure and likely less indicated now. Elevated PAOP. Would continue efforts at diuresis, especially given worsened CXR consistent with pulmonary edema. Patient seen and examined. Purnima Thacker is a 67 y.o. 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 Active Non-Hospital Problems Diagnosis Mixed connective tissue disease Neck pain Diverticulosis Rosacea Aortic stenosis Chronic idiopathic neutropenia Depressive disorder Essential tremor Obesity Essential hypertension EXAM: Temp: [36 ??C (96.8 ??F)-38.1 ??C (100.6 ??F)] Heart Rate: [108-124] Resp: [19-34] BP: (71-99)/(37-83) SpO2: [87 %-99 %] Heart Rate from SpO2: [111 bpm-115 bpm] Physical Exam Constitutional: Appearance: She is obese. She is ill-appearing. Cardiovascular: Rate and Rhythm: Tachycardia present. Pulmonary: Effort: Pulmonary effort is normal. Skin: General: Skin is cool. Coloration: Skin is mottled. Body mass index is 32.23 kg/m??. IS PATIENT CRITICALLY ILL ? Is there a high potential of sudden, clinically significant, or life threatening deterioration? Yes Is there a need for direct personal assessment and management to treat/prevent multiple vital organfailure/deterioration? Yes PATIENT IS CRITICALLY ILL WITH THESE DIAGNOSES BEING MANAGED: Shock Cardiogenic I personally performed 45 minutes of aggregate critical care time exclusive of procedures and teaching. This includes time spent during direct patient evaluation and reassessment, interpreting diagnostic tests, directing life and/or organ supporting interventions and documentation on the unit. Timenoted does not include overlapping time with other physicians or advanced practice providers. * Shari Ramos RN - 05/11/2023 4:11 PM EDT Reported off to SLIP BOX CHANGER and pt transferred over in the bed for higher level of care. * Antelmo Sharma MD - 05/11/2023 9:45 AM EDT Images from the original note were not included. [facility] [place] [address] [address] STRUCTURAL HEART DISEASE CONSULTATION NOTE PRIMARY CARE PROVIDER: Magdalena Acosta MD REFERRING PROVIDER: Mario Alberto Chin REASON FOR CONSULTATION: Bioprosthetic aortic valve stenosis HISTORY OF PRESENT ILLNESS: Patient ID: Purnima Thacker is a 67 y.o. 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 She is a patient of Dr. Hudson'elvia, who had been referred for possible TAVR [id number] evaluation. Her primary symptoms are of dyspnea on exertion, fatigue, and more recently orthopnea/PND.This has been going on for several months now, but abruptly worsened in the past week, thus prompting her to be come for more urgent evaluation. At nights, she says she can lie flat in bed, but does have to move from the bed to the chair and back again sporadically. She has had isolated episodes oflightheadedness but no presyncope or syncope. She notes a mid-sternal chest pressure with exertion.ROS otherwise negative. Ms. Thacker is originally from [facility]. 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, 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) Aortic stenosis Chronic idiopathic neutropenia NICOLAS (obstructive sleep apnea) Depressive disorder Essential tremor Obesity Essential hypertension MEDICATIONS: Current Facility-Administered Medications Medication Dose Route Frequency Provider Last Rate Last Admin spironolactone (Aldactone) tablet 12.5 mg 12.5 mg Oral Daily Benjamin Green MD 12.5 mg at 05/11/23 0834 furosemide (Lasix) tablet 40 mg 40 mg Oral Daily Harini Lance MD 40 mg at 05/11/23 0834 heparin (porcine) 50 units/mL in dextrose 5% 500 mL infusion 0-5,000 Units/hr Intravenous Continuous Klaudia Reid MD 19 mL/hr at 05/10/23 1702 950 Units/hr at 05/10/23 1702 And heparin (porcine) (1,000 units/mL) injection 0-8,000 Units 0-8,000 Units Intravenous BOLUS HEPARIN PP Klaudia Reid MD aspirin EC tablet 81 mg 81 mg Oral Daily Klaudia Reid MD 81 mg at 05/11/23 0834 atorvastatin (Lipitor) tablet 10 mg 10 mg Oral QPM Klaudia Reid MD 10 mg at 05/10/23 1652 sodium chloride 0.9 % (flush) (BD PosiFlush Normal Saline 0.9) flush 5 mL 5 mL Intravenous BID Klaudia Reid MD 5 mL at 05/11/23 0834 sodium chloride 0.9 % (flush) (BD PosiFlush Normal Saline 0.9) flush 5-20 mL 5- 20 mL Intravenous Q1Min PRN Klaudia Reid MD lidocaine (Xylocaine) 1% (10 mg/mL) injection 3 mg 0.3 mL Subcutaneous Once PRN Klaudia Reid MD acetaminophen (Tylenol) tablet 650 mg 650 mg Oral Q4H PRN Klaudia Reid MD influenza vaccine adjuvanted (Adult 65 Yrs +) (FluAD Quad) (PF) IM injection 0.5 mL 0.5 mL Intramuscular Prior to discharge Klaudia Reid MD potassium chloride ER (Klor-Con M) crystal tablet 40 mEq 40 mEq Oral Q4H PRN Cristina Jernigan MD Or potassium chloride ER (Klor-Con M) crystal tablet 20 mEq 20 mEq Oral Q4H Cristina Velazquez MD 20 mEq at 05/08/232037 FAMILY HISTORY: No family history on file. SOCIAL HISTORY: Social History Socioeconomic History Marital status: Single Spouse name: Not on file Number of children: Not on file Years of education: Not on file Highest education level: Not on file Occupational History Not on file Tobacco Use Smoking status: Never Smokeless tobacco: Never Vaping Use Vaping Use: Never used Substance and Sexual Activity Alcohol use: No Alcohol/week: 0.0 standard drinks Comment: none Drug use: No Sexual activity: Not on file Other Topics Concern Not on file Social History Narrative Not on file Social Determinants of Health Financial Resource Strain: Not on file Food Insecurity: Not on file Transportation Needs: Not on file Physical Activity: Not on file Housing Stability: Not on file REVIEW OF SYSTEMS: 12+ point review of systems was reviewed in detailed and negative apart from the HPI. Objective: Physical Examination: Patient Vitals for the past 24 hrs: Temp Heart Rate From SP02 Pulse Resp BP SpO2 O2 Flow Rate (L/min) O2 Device 05/10/23 1024 -- -- (!) 124 -- 109/60 95 % -- -- 05/10/23 1242 36.9 ??C (98.4 ??F) -- (!) 120 20 96/63 94 % 3 L/min NC 05/10/23 1637 36.9 ??C (98.4 ??F) -- (!) 120 20 102/71 96 % 3 L/min NC 05/10/23 1941 36.9 ??C (98.4 ??F) -- (!) 126 20 99/71 95 % -- -- 05/10/23 2339 36.5 ??C (97.7 ??F) -- (!) 127 19 (!) 115/99 97 % -- -- 05/11/23 0343 36.5 ??C (97.7 ??F) -- (!) 120 20 99/77 96 % -- -- 05/11/23 0839 -- (!) 115 bpm -- 21 94/67 99 % 3 L/min NC General: Pleasant, older frail female, appears older than stated age, no acute distress HEENT: Normocephalic, atraumatic, benign NECK: Supple, no masses, FROM CV: Tachycardic rate, Rhythm: Regular rhythm, II/ crescendo-decrescendo murmur best heard at the USBs, diminutive S2, no rubs, no ventricular heaves RESP: CTAB, moving air well, symmetric chest excursion GI: Soft, nd, nttp EXT: No cyanosis/clubbing,trivial abdominal trace edema, preserved distal pulses NEURO: No gross focal deficits DERM: No rash, wwp 11.1 134 99 42 3.7 7.2 9.6 7 H/H 165 4.6 14 1.24 -- .8 -- 32.7 144 130 -- 72 78.1N (1.3B) / 10.6L / 9.6M / --E / .4B Recent Results (from the past 24 hour(s)) Lactate, whole blood, send to lab ([facility] Result Value Ref Range Lactate WB 3.1 (H) 0.5 - 2.2 mmol/L Heparin (unfractionated) Level Result Value Ref Range Heparin UFH Level 0.46 IU/mL Lactate, whole blood, send to lab ([facility] Result Value Ref Range Lactate WB 1.8 0.5 - 2.2 mmol/L TTE 05/08/23 Interpretation Summary -Left ventricle is [...] in Anterolateral leads Confirmed by MD Harshil, Enrique Bell ([id number]) on 05/10/2023 8:11:46 AM Cardiac Cath 11/09/2022 [...] performed. Conclusions: * Nonobstructive coronary artery disease Assessment and Plan: Patient ID: Purnima Thacker is a 67 y.o. 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 Bioprosthetic aortic valve stenosis TTE imaging reviewed independently in the context of her presenting illness. Primary mechanism for is stenosis, and she now has a decrement in LV systolic function. NYHA Class IV, CCS Class III -meets class I indication for treatment. Will need to alert Dr. Hudson of her inpatient status, [facility] primary cardiac surgeon. Based on recent clinic visit, tentative plan had been for TAVR JANET butwill doublecheck given her chronological age. Cardiac cath 11/09/2022 notable for non-obstructive coronary disease. TAVR CTAs planned for today. Will review her case with cardiac surgery to determine best timing and therapies for her valve intervention. Addendum 05/11/2023 6:48 PM Due to decompensating HFrEF, she was transferred to [facility] this afternoon for further management. TAVR CT imaging support for adequate ileofemoral access. Given her acute deterioration today, will planfor RTF TAVR on 05/12/2023. Brody Dale ANURAG Kaplan Structural Heart Disease Pager [phone] Please see addendum by Dr. Sharma for final plan I have seen the patient in person and reviewed Brody Kaplan ANURAG's above history and I agree with the details as written. The assessment and plan were formulated in discussion with me and I agree with them as documented. I examined the patient at the bedside and discussed with my CTS partner, Dr. Hudson. We are prioritizing her TAVR first case in the AM. Ileofemoral anatomy appears suitable for large bore access. VTC distances are borderline and will need consideration of coronary protection. NPO past midnight, consent signed and dated. Antelmo Sharma MD Pager [phone] * Harini Lance MD - 05/11/2023 6:06 AM EDT Images from the original note were not included. Cardiology Progress Note Patient info: Name: Purnima Thacker : 1955 PCP: Magdalena Acosta MD PCP phone number: [phone] Date of Admission: 05/08/2023 ( Hospital Day 3 days ) Attending:Juan Luis Gonzalez MD ID: Purnima Thacker is a 67 y.o. female with s/p bioprosthetic AVR in 2016 with recent concern for severe restenosis, HTN, HLD, mixed connective tissue disease, currently being managed for symptomatic severe and acute exacerbation of heart failure. 24 Hour and Subjective: - NAEO This Morning: - 60 lasix and net negative 50 - She reports feeling worse this morning, and weaker. Vitals Last value Range last 24 hrs Temperature Temp: 36.5 ??C (97.7 ??F) Temp: [36.5 ??C (97.7 ??F)-37.1 ??C (98.7 ??F)] Heart Rate Heart Rate: (!) 120 Heart Rate: [120-127] Blood Pressure BP: 99/77 BP: (96-115)/(60-99) Art Line BP BP (Arterial Line): -- MAP (NBP): [75 mmHg-106 mmHg] Respiratory Rate Resp: 20 Resp: [19-20] SpO2 SpO2: 96 % SpO2: [94 %-97 %] Oxygen Delivery Oxygen Therapy O2 Device: Nasal cannula O2 Flow Rate (L/min): 3 L/min Reason for Oxygen: Subjective dyspnea with no hypoxia Objective: Intake/Output Summary (Last 24 hours) at 05/11/2023 0606 Last data filed at 05/10/2023 1900 Gross per 24 hour Intake 250 ml Output 300 ml Net -50 ml Patient Vitals for the past 168 hrs: Weight 05/11/23 0347 77.4 kg (170 lb 9.6 oz) 05/10/23 040 78.1 kg (172 lb 1.6 oz) 05/09/23 2336 78.4 kg (172 lb 14.4 oz) 05/09/23 0400 76.8 kg (169 lb 5 oz) 05/08/23 0900 76.4 kg (168 lb 6.9 oz) Admit wt: 76.4 kg 76.8kg (Standing scale) Physical Exam: Gen: in bed in NAD; alert, oriented, conversant HEENT: Anicteric, EOMI intact CV: Sinus tach, JV low neck region, Resp: Inspiratory crackles Lung sounds clear, no wheezes/crackles Abd: Abdomen soft, NDNT Ext: Cooler to touch LE b/l, 2+ distal pulses, pedal edema Lines/Drains/Airways Lines: Peripheral IV Line - Single Lumen 05/08/23 1004 median cubital vein (antecubital fossa), right 20 gauge (Active) Indication/Daily Review of Necessity medication therapy intermittent 05/08/231999 Site Preparation/Maintenance dressing: dry and intact 05/08/231999 Securement catheter stabilization device, secured with 05/08/231999 Patency/Maintenance infusing 05/09/23599 Phlebitis 0-->no symptoms 05/09/23599 Infiltration 0-->no symptoms 05/09/23599 Site Signs/Symptoms no drainage;no streak formation;no palpable cord;no pain;no warmth;no swelling;no redness 05/08/231999 Peripheral IV Line - Single Lumen 05/08/23 1202 cephalic vein (lateral side of arm), left 22 gauge;1 in length (Active) Site Preparation/Maintenance dressing: dry and intact 05/08/231999 Securement catheter stabilization device, secured with 05/08/231999 Patency/Maintenance flushed without difficulty 05/08/231999 Phlebitis 0-->no symptoms 05/09/23599 Infiltration 0-->no symptoms 05/09/23599 Site Signs/Symptoms no drainage;no streak formation;no palpable cord;no pain;no warmth;no swelling;no redness 05/08/231999 Labs: Recent Labs 05/11/2344105/10/2322705/09/23 0400 05/08/23 1138 WBC 7.0 5.2 6.4 4.1 HGB 11.1* 10.2* 10.2* 10.2* HCT 32.7* 30.2* 30.3* 29.6* PLATELET 165 151 151 136* MCV 95.1* 97.1* 96.2* 97.0* Recent Labs 05/11/2344105/10/2322705/09/23 0400 05/08/23 1600 05/08/23 1138 NA 134* 134* 137 -- 139 CL 99 102 102 -- 105 CO2 14* 20* 20* -- 20* K 4.6 4.1 4.4 3.9 4.2 MAGNESIUM -- -- -- 0.82 0.76 PHOS -- -- -- -- 4.7* CALCIUM 9.6 9.3 9.3 -- 9.4 BUN 42* 30* 31* -- 27* CREATININE 1.24* 0.90 1.03 -- 1.02 LFTs Recent Labs 05/11/2344105/10/2322705/09/23 0400 PROT 7.2 6.4 6.6 ALBUMIN 3.7 3.7 3.8 AST 144* 24 32* ALT 130* 14 18 ALKPHOS 72 70 78 BILITOT 0.8 0.5 0.5 Coags No results for input(s): INR, PT, PTT, FIBRINOGEN, DDIMER in the last 168 hours. Invalid input(s): THROMBIN TIME Cardiac Enzymes Recent Labs 05/08/23 1600 PROBNP 25,503* Imaging: Results for orders placed or performed during the hospital encounter of 05/08/23 XR Chest One View (Exam End: 05/10/2023 11:16 AM) Impression Mild interstitial edema with vascular congestion and small pleural effusions. Thank you for letting us participate in the care of this patient. If you are a health care provider and have any questions regarding this report, please contact the number below. For patients who have questions please contact the health memory care program resident that requested your imaging first. Electronically signed by: ALIX RUVALCABA MD, [facility] ([phone]), at 05/10/2023 1:25 PM TTE: 05/08 -Left ventricle is severely dilated (LVEDV index [...] suggests worsening stenosis. Mitral regurgitation is similar. Inpatient Medications Scheduled Meds: spironolactone 12.5 mg Oral Daily furosemide 40 mg Oral Daily aspirin EC 81 mg Oral Daily atorvastatin 10 mg Oral QPM sodium chloride 0.9 % (flush) 5 mL Intravenous BID Continuous Infusions: heparin (porcine) infusion 950 Units/hr (05/10/23 1702) Outpatient Medications Current Outpatient Medications Medication Instructions acetaminophen (TYLENOL) 1,000 mg, Oral, EVERY 6 HOURS PRN amoxicillin (AMOXIL) 2,000 mg, Oral, ONCE PRN, Before dental aspirin EC 81 mg, DAILY atorvastatin (LIPITOR) 10 mg, Oral, DAILY cyanocobalamin (Vitamin B-12) (VITAMIN B-12) 500 mcg, Oral, DAILY dilTIAZem CD (CARDIZEM CD) 180 mg, Oral, DAILY hydroxychloroquine (PLAQUENIL) 200 mg, Oral, DAILY losartan (COZAAR) 25 mg, Oral, DAILY meloxicam (MOBIC) 15 mg, Oral, DAILY metroNIDAZOLE (METROGEL) 0.75 % Gel Apply every other day after washing as needed. multivitamin (THERAGRAN) Tablet 1 tablet, Oral, DAILY nystatin (MYCOSTATIN) 100,000 unit/gram Powder Topical (Top), 2 TIMES DAILY PRN OneTouch Delica Plus Lancet 33 gauge Misc USE DAILY OneTouch Verio test strips Strip USE DAILY spironolactone (ALDACTONE) 12.5 mg, Oral, DAILY Assessment & Plan: Purnima Thacker is a 67 y.o. female with s/p bioprosthetic AVR in 2016 with recent concern for severe restenosis, HTN, HLD, mixed connective tissue disease, currently being managed for symptomaticsevere and acute exacerbation of heart failure. 05/10: This morning she reported a short episode of chest pain under her left breast which self resolved. Repeat ECG showed no changes. She states she continues to feel worse. We held diuresis yesterday due to concern for her soft BP's, plan to start gentle diuresis with Lasix PO 20 and reassess in the afternoon, and plan to resume her Aldactone dose. Planning on consulting structural heart team for TAVR eval today. 05/11: This morning her LE were cool to touch, we obtained a lactate which was elevated, and her Crwas 1.2 likely an EVANS 2/2 diuresis, and with worsening of LFT's, we are concerned for cardiogenic shock 2/2 severe aortic stenosis. However her SBP have been >90. Plan for TAVR CT today, and hold off on diuresis and re-evaluate in the afternoon for the need for gentle diuresis. #Acute decompensated heart failure #Severe symptomatic > Home meds Diltiazem 180 daily, losartan 25, spironolactone 12.5 > Holding home antiHTN as BP soft > Had been started on work up for possible elective TAVR with heart cath in 11/09/2022 showedNonobstructive coronary artery disease > TTE showed LVEF 25% and very severe/critical stenosis of a bioprosthetic valve (mean gradient 40 mmHg, peak velocity 4.0 m/s, DI 0.15, stroke volume index 28 mL/m2). > received lasix 40 mg IV in [facility] PLAN - Gentle diuresis Lasix PO 20mg - pending CT imaging for TAVR eval. #NSTEMI, likely type II - continue heparin gtt, - continue home ASA and statin #Hx mixed connective tissue disease - hold home hydroxychloroquine - hold home folate #Housekeeping: DVT PPx: None GI PPx: Diet: NPO diet (Give Meds) Lines: Peripheral IV Line - Single Lumen 05/08/23 1004 median cubital vein (antecubital fossa), right 20 gauge (Active) Number of days: 2 Peripheral IV Line - Single Lumen 05/08/23 1202 cephalic vein (lateral side of arm), left 22 gauge;1 in length (Active) Number of days: 2 Code status: Full Harini Lance MD Internal Medicine, PGY-1 Cardiology M1-S2, #[id number] 05/11/2023, 6:06 AM Associated attestation - Juan Luis Gonzalez MD - 05/11/2023 10:20 PM EDT Cardiology Attending Addendum Active Hospital Problems Diagnosis Symptomatic severe aortic stenosis with low ejection fraction Heart failure with reduced ejection fraction due to heart valve disease 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 I have interviewed and examined the patient, reviewed the available data, and have discussed my findings, assessment and plan with the patient and the team on rounds today. I agree with Dr. Lance's note as below which reflects our discussion. * Harini Lance MD - 05/10/2023 6:01 AM EDT Images from the original note were not included. Cardiology Progress Note Patient info: Name: Purnima Thacker : 1955 PCP: Magdalena Acosta MD PCP phone number: [phone] Date of Admission: 05/08/2023 ( Hospital Day 2 days ) Attending:Juan Luis Gonzalez MD ID: Purnima Thacker is a 67 y.o. female with s/p bioprosthetic AVR in 2016 with recent concern for severe restenosis, HTN, HLD, mixed connective tissue disease, currently being managed for symptomatic severe and acute exacerbation of heart failure. 24 Hour and Subjective: - NAEO This Morning: - She reported sharp chest pain under her left breast lasting for a minute, which self resolved. She also had reproducible mid sternal chest pain. Vitals Last value Range last 24 hrs Temperature Temp: 36.7 ??C (98.1 ??F) Temp: [36.6 ??C (97.9 ??F)-37.2 ??C (99 ??F)] Heart Rate Heart Rate: (!) 127 Heart Rate: [100-127] Blood Pressure BP: 91/75 BP: (90-105)/(58-75) Art Line BP BP (Arterial Line): -- MAP (NBP): [68 mmHg-83 mmHg] Respiratory Rate Resp: 22 Resp: [18-32] SpO2 SpO2: 90 % SpO2: [90 %-97 %] Oxygen Delivery Oxygen Therapy O2 Device: Nasal cannula O2 Flow Rate (L/min): 2 L/min Reason for Oxygen: Subjective dyspnea with no hypoxia Objective: Intake/Output Summary (Last 24 hours) at 05/10/2023 06 Last data filed at 05/10/2023 0400 Gross per 24 hour Intake 671 ml Output 1200 ml Net -529 ml Patient Vitals for the past 168 hrs: Weight 05/10/23 0400 78.1 kg (172 lb 1.6 oz) 05/09/23 2336 78.4 kg (172 lb 14.4 oz) 05/09/23399 76.8 kg (169 lb 5 oz) 05/08/23899 76.4 kg (168 lb 6.9 oz) Admit wt: 76.4 kg Physical Exam: Gen: in bed in NAD; alert, oriented, conversant HEENT: Anicteric, EOMI intact CV: Sinus tach, JV low neck region, Resp: Inspiratory crackles Lung sounds clear, no wheezes/crackles Abd: Abdomen soft, NDNT Ext: 2+ distal pulses, pedal edema Lines/Drains/Airways Lines: Peripheral IV Line - Single Lumen 05/08/23 1004 median cubital vein (antecubital fossa), right 20 gauge (Active) Indication/Daily Review of Necessity medication therapy intermittent 05/08/231999 Site Preparation/Maintenance dressing: dry and intact 05/08/231999 Securement catheter stabilization device, secured with 05/08/231999 Patency/Maintenance infusing 05/09/23599 Phlebitis 0-->no symptoms 05/09/23599 Infiltration 0-->no symptoms 05/09/23599 Site Signs/Symptoms no drainage;no streak formation;no palpable cord;no pain;no warmth;no swelling;no redness 05/08/231999 Peripheral IV Line - Single Lumen 05/08/23 1202 cephalic vein (lateral side of arm), left 22 gauge;1 in length (Active) Site Preparation/Maintenance dressing: dry and intact 05/08/231999 Securement catheter stabilization device, secured with 05/08/231999 Patency/Maintenance flushed without difficulty 05/08/231999 Phlebitis 0-->no symptoms 05/09/23599 Infiltration 0-->no symptoms 05/09/23599 Site Signs/Symptoms no drainage;no streak formation;no palpable cord;no pain;no warmth;no swelling;no redness 05/08/231999 Labs: Recent Labs 05/10/2322705/09/2339905/08/23 1138 WBC 5.2 6.4 4.1 HGB 10.2* 10.2* 10.2* HCT 30.2* 30.3* 29.6* PLATELET 151 151 136* MCV 97.1* 96.2* 97.0* Recent Labs 05/10/2322723 0400 05/08/23 1600 05/08/23 1138 NA 134* 137 -- 139 CL 102 102 -- 105 CO2 20* 20* -- 20* K 4.1 4.4 3.9 4.2 MAGNESIUM -- -- 0.82 0.76 PHOS -- -- -- 4.7* CALCIUM 9.3 9.3 -- 9.4 BUN 30* 31* -- 27* CREATININE 0.90 1.03 -- 1.02 LFTs Recent Labs 05/10/2322705/09/23 0400 PROT 6.4 6.6 ALBUMIN 3.7 3.8 AST 24 32* ALT 14 18 ALKPHOS 70 78 BILITOT 0.5 0.5 Coags No results for input(s): INR, PT, PTT, FIBRINOGEN, DDIMER in the last 168 hours. Invalid input(s): THROMBIN TIME Cardiac Enzymes Recent Labs 05/08/23 1600 PROBNP 25,503* Imaging: No results found for this visit on 05/08/23. TTE: 05/08 -Left ventricle is severely dilated (LVEDV index [...] suggests worsening stenosis. Mitral regurgitation is similar. Inpatient Medications Scheduled Meds: aspirin EC 81 mg Oral Daily atorvastatin 10 mg Oral QPM sodium chloride 0.9 % (flush) 5 mL Intravenous BID Continuous Infusions: heparin (porcine) infusion 950 Units/hr (05/09/23 0600) Outpatient Medications Current Outpatient Medications Medication Instructions acetaminophen (TYLENOL) 1,000 mg, Oral, EVERY 6 HOURS PRN amoxicillin (AMOXIL) 2,000 mg, Oral, ONCE PRN, Before dental aspirin EC 81 mg, DAILY atorvastatin (LIPITOR) 10 mg, Oral, DAILY cyanocobalamin (Vitamin B-12) (VITAMIN B-12) 500 mcg, Oral, DAILY dilTIAZem CD (CARDIZEM CD) 180 mg, Oral, DAILY hydroxychloroquine (PLAQUENIL) 200 mg, Oral, DAILY losartan (COZAAR) 25 mg, Oral, DAILY meloxicam (MOBIC) 15 mg, Oral, DAILY metroNIDAZOLE (METROGEL) 0.75 % Gel Apply every other day after washing as needed. multivitamin (THERAGRAN) Tablet 1 tablet, Oral, DAILY nystatin (MYCOSTATIN) 100,000 unit/gram Powder Topical (Top), 2 TIMES DAILY PRN OneTouch Delica Plus Lancet 33 gauge Misc USE DAILY OneTouch Verio test strips Strip USE DAILY spironolactone (ALDACTONE) 12.5 mg, Oral, DAILY Assessment & Plan: Purnima Thacker is a 67 y.o. female with s/p bioprosthetic AVR in 2015 with recent concern for severe restenosis, HTN, HLD, mixed connective tissue disease, currently being managed for symptomaticsevere and acute exacerbation of heart failure. 05/09: At this point due to her low pressures holding off on diuresis, planning for TAVR eval tomorrow. 05/10: This morning she reported a short episode of chest pain under her left breast which self resolved. Repeat ECG showed no changes. She states she continues to feel worse. We held diuresis yesterday due to concern for her soft BP's, plan to start gentle diuresis with Lasix PO 20 and reassess in the afternoon, and plan to resume her Aldactone dose. Planning on consulting structural heart team for TAVR eval today. #Acute decompensated heart failure #Severe symptomatic > Home meds Diltiazem 180 daily, losartan 25, spironolactone 12.5 > Holding home antiHTN as BP soft > Had been started on work up for possible elective TAVR with Lf heart cath in 11/09/2022 showedNonobstructive coronary artery disease > TTE showed LVEF 25% and very severe/critical stenosis of a bioprosthetic valve (mean gradient 40 mmHg, peak velocity 4.0 m/s, DI 0.15, stroke volume index 28 mL/m2). > received lasix 40 mg IV in [facility] PLAN - Gentle diuresis Lasix PO 20mg - pending eval for TAVR #NSTEMI, likely type II - continue heparin gtt, - continue home ASA and statin #Hx mixed connective tissue disease - hold home hydroxychloroquine - hold home folate #Housekeeping: DVT PPx: None GI PPx: Diet: NPO diet (Give Meds) Lines: Peripheral IV Line - Single Lumen 05/08/23 1004 median cubital vein (antecubital fossa), right 20 gauge (Active) Number of days: 1 Peripheral IV Line - Single Lumen 05/08/23 1202 cephalic vein (lateral side of arm), left 22 gauge;1 in length (Active) Number of days: 1 Code status: Full Harini Lance MD Internal Medicine, PGY-1 Cardiology M1-S2, #[id number] 05/10/2023, 6:01 AM Associated attestation - Juan Luis Gonzalez MD - 05/10/2023 6:48 PM EDT Cardiology Attending Addendum Active Hospital Problems Diagnosis Symptomatic severe aortic stenosis with low ejection fraction Heart failure with reduced ejection fraction due to heart valve disease 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 I have interviewed and examined the patient, reviewed the available data, and have discussed my findings, assessment and plan with the patient and the team on rounds today. I agree with Dr. Lance's note as below which reflects our discussion. * Harini Lance MD - 05/09/2023 7:46 AM EDT Images from the original note were not included. Cardiology Progress Note Patient info: Name: Purnima Thacker : 1955 PCP: Magdalena Acosta MD PCP phone number: [phone] Date of Admission: 05/08/2023 ( Hospital Day 1 day ) Attending:Juan Luis Gonzalez MD ID: Purnima Thacker is a 67 y.o. female with s/p bioprosthetic AVR in 2016 with recent concern for severe restenosis, HTN, HLD, mixed connective tissue disease, currently being managed for symptomatic severe and acute exacerbation of heart failure. 24 Hour and Subjective: - NAEO This Morning: - No chest pain. Reports dyspnea on exertion. Vitals Last value Range last 24 hrs Temperature Temp: 37.1 ??C (98.8 ??F) Temp: [37 ??C (98.6 ??F)-37.4 ??C (99.3 ??F)] Heart Rate Heart Rate: (!) 112 Heart Rate: [93-126] Blood Pressure BP: 90/60 BP: (90-104)/(58-83) Art Line BP BP (Arterial Line): -- MAP (NBP): [66 mmHg-89 mmHg] Respiratory Rate Resp: 25 Resp: [15-25] SpO2 SpO2: 96 % SpO2: [91 %-97 %] Oxygen Delivery Oxygen Therapy O2 Device: Nasal cannula O2 Flow Rate (L/min): 2 L/min Reason for Oxygen: New documented hypoxia Objective: Intake/Output Summary (Last 24 hours) at 05/09/2023 1423 Last data filed at 05/09/2023 0900 Gross per 24 hour Intake 644 ml Output 900 ml Net -256 ml Patient Vitals for the past 168 hrs: Weight 05/09/23 0400 76.8 kg (169 lb 5 oz) 05/08/23 0900 76.4 kg (168 lb 6.9 oz) Admit wt: 76.4 kg Physical Exam: Gen: in bed in NAD; alert, oriented, conversant HEENT: Anicteric, EOMI intact CV: RRR, no murmurs/rubs/gallops, JV non-distended Resp: Lung sounds clear, no wheezes/crackles Abd: Abdomen soft, NDNT Ext: 2+ distal pulses, no pedal edema Lines/Drains/Airways Lines: Peripheral IV Line - Single Lumen 05/08/23 1004 median cubital vein (antecubital fossa), right 20 gauge (Active) Indication/Daily Review of Necessity medication therapy intermittent 05/08/231999 Site Preparation/Maintenance dressing: dry and intact 05/08/231999 Securement catheter stabilization device, secured with 05/08/231999 Patency/Maintenance infusing 05/09/23599 Phlebitis 0-->no symptoms 05/09/23599 Infiltration 0-->no symptoms 05/09/23599 Site Signs/Symptoms no drainage;no streak formation;no palpable cord;no pain;no warmth;no swelling;no redness 05/08/231999 Peripheral IV Line - Single Lumen 05/08/23 1202 cephalic vein (lateral side of arm), left 22 gauge;1 in length (Active) Site Preparation/Maintenance dressing: dry and intact 05/08/231999 Securement catheter stabilization device, secured with 05/08/231999 Patency/Maintenance flushed without difficulty 05/08/231999 Phlebitis 0-->no symptoms 05/09/23599 Infiltration 0-->no symptoms 05/09/23599 Site Signs/Symptoms no drainage;no streak formation;no palpable cord;no pain;no warmth;no swelling;no redness 05/08/231999 Labs: Recent Labs 05/09/23 0400 05/08/23 1138 WBC 6.4 4.1 HGB 10.2* 10.2* HCT 30.3* 29.6* PLATELET 151 136* MCV 96.2* 97.0* Recent Labs 05/09/23 0400 05/08/23 1600 05/08/23 1138 NA 137 -- 139 CL 102 -- 105 CO2 20* -- 20* K 4.4 3.9 4.2 MAGNESIUM -- 0.82 0.76 PHOS -- -- 4.7* CALCIUM 9.3 -- 9.4 BUN 31* -- 27* CREATININE 1.03 -- 1.02 LFTs Recent Labs 05/09/23 040 PROT 6.6 ALBUMIN 3.8 AST 32* ALT 18 ALKPHOS 78 BILITOT 0.5 Coags No results for input(s): INR, PT, PTT, FIBRINOGEN, DDIMER in the last 168 hours. Invalid input(s): THROMBIN TIME Cardiac Enzymes Recent Labs 05/08/23 1600 PROBNP 25,503* Endocrine Recent Labs 05/08/23 1138 TSH 1.27 No results for input(s): POCGLU in the last 168 hours. Heme No results for input(s): LDH, HAPTOGLOBIN, URICACID in the last 168 hours. ABG (Arterial Blood Gas) No results found for: PHART, PO2ART, NFS0NDI, [id number] Microbiology: Microbiology Results (Last 30 days) No results found for the last 720 hours. Imaging: No results found for this visit on 05/08/23. TTE: 05/08 -Left ventricle is severely dilated (LVEDV index [...] suggests worsening stenosis. Mitral regurgitation is similar. Inpatient Medications Scheduled Meds: aspirin EC 81 mg Oral Daily atorvastatin 10 mg Oral QPM sodium chloride 0.9 % (flush) 5 mL Intravenous BID Continuous Infusions: heparin (porcine) infusion 950 Units/hr (05/09/23 0600) PRN Meds:.heparin (porcine) infusion AND heparin (porcine), sodium chloride 0.9 % (flush), lidocaine, acetaminophen, influenza vaccine (65 yrs +), potassium chloride ER OR potassium chloride ER Outpatient Medications Current Outpatient Medications Medication Instructions acetaminophen (TYLENOL) 1,000 mg, Oral, EVERY 6 HOURS PRN amoxicillin (AMOXIL) 2,000 mg, Oral, ONCE PRN, Before dental aspirin EC 81 mg, DAILY atorvastatin (LIPITOR) 10 mg, Oral, DAILY cyanocobalamin (Vitamin B-12) (VITAMIN B-12) 500 mcg, Oral, DAILY dilTIAZem CD (CARDIZEM CD) 180 mg, Oral, DAILY hydroxychloroquine (PLAQUENIL) 200 mg, Oral, DAILY losartan (COZAAR) 25 mg, Oral, DAILY meloxicam (MOBIC) 15 mg, Oral, DAILY metroNIDAZOLE (METROGEL) 0.75 % Gel Apply every other day after washing as needed. multivitamin (THERAGRAN) Tablet 1 tablet, Oral, DAILY nystatin (MYCOSTATIN) 100,000 unit/gram Powder Topical (Top), 2 TIMES DAILY PRN OneTouch Delica Plus Lancet 33 gauge Misc USE DAILY OneTouch Verio test strips Strip USE DAILY spironolactone (ALDACTONE) 12.5 mg, Oral, DAILY Assessment & Plan: Purnima Thacker is a 67 y.o. female with s/p bioprosthetic AVR in 2015 with recent concern for severe restenosis, HTN, HLD, mixed connective tissue disease, currently being managed for symptomaticsevere and acute exacerbation of heart failure. 05/09: At this point due to her low pressures holding off on diuresis, planning for TAVR eval tomorrow. #Acute decompensated heart failure #Severe symptomatic > Home meds Diltiazem 180 daily, losartan 25, spironolactone 12.5 > Holding home antiHTN as BP soft > Had been started on work up for possible elective TAVR with heart cath in 11/09/2022 showedNonobstructive coronary artery disease > TTE showed LVEF 25% and very severe/critical stenosis of a bioprosthetic valve (mean gradient 40 mmHg, peak velocity 4.0 m/s, DI 0.15, stroke volume index 28 mL/m2). > received lasix 40 mg IV in [facility] PLAN - hold diuresis - pending eval for TAVR #NSTEMI, likely type II - continue heparin gtt, - continue home ASA and statin #Hx mixed connective tissue disease - hold home hydroxychloroquine - hold home folate #Housekeeping: DVT PPx: None GI PPx: Diet: Daily Healthy Menu Choices/Cardiac diet ([facility] Lines: Peripheral IV Line - Single Lumen 05/08/23 1004 median cubital vein (antecubital fossa), right 20 gauge (Active) Number of days: 1 Peripheral IV Line - Single Lumen 05/08/23 1202 cephalic vein (lateral side of arm), left 22 gauge;1 in length (Active) Number of days: 1 Code status: Full Harini Lance MD Internal Medicine, PGY-1 Cardiology M1-S2, #[id number] 05/09/2023, 2:23 PM Associated attestation - Juan Luis Gonzalez MD - 05/09/2023 10:12 PM EDT Cardiology Attending Addendum Active Hospital Problems Diagnosis Symptomatic severe aortic stenosis with low ejection fraction Heart failure with reduced ejection fraction due to heart valve disease 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 I have interviewed and examined the patient, reviewed the available data, and have discussed my findings, assessment and plan with the patient and the team on rounds today. I agree with Dr. Lance's note as below which reflects our discussion. * Mario Alberto Howe RCP - 05/09/2023 3:24 AM EDT Respiratory Therapy NIV Note NIV Settings: NIV Mode: CPAP (V30) PEEP/CPAP (cm H2O): 7 cm H20 O2 Bleed In (LPM): 2 L/min NIV Measurements: Resp: 18 Mve: 7.5 Leak (L/min): 14 L/min Vte: 340 SpO2: 95 % Skin Assessment: NIV Skin Assessment WDL: WDL Mepilex Applied: No Assessment: Pt on NIV/Cpap without incident. Will continue to follow. Pt settings match her home unit. Plan: Pt family may bring in her home machine. Pt is cooperative Mario Alberto Howe RCP documented in this encounter H&P Notes * Joes Thomas MD - 05/18/2023 3:46 PM EDT INTERVENTIONAL RADIOLOGY FOCUSED H&P: Procedure: Planned procedure: Right chest tube placement The patient's history and physical exam have been reviewed and completed. There has been no interval change from that of the pre-operative history and physical exam done within the last 30 days. Physical Exam: Cardiovascular: Regular, Normal Pulmonary: Breath sounds clear to auscultation The planned procedure (and sedation plan if appropriate) , its benefits and risks, and alternativeswere discussed with the patient. The patient consented to the procedure. PRE-SEDATION ASSESSMENT: Sedation Plan: minimal (single agent only) ASA: 3: Patient with severe systemic disease Mallampati: II: tonsillar pillars are blocked by the tongue Confirm NPO status: Yes History of anesthetic complications: No Current medications reviewed: Yes Allergies reviewed: Yes Source Note - Laure Ricks PA - 05/18/2023 9:15 AM EDT Images from the original note were not included. Interventional Radiology Focused Pre-procedure H&P: PCP: Magdalena Acosta MD Referring Provider: Mario Alberto Chin Planned procedure: Right chest tube placement Procedure indication: Right pleural fluid, recent TAVR IR workflow: Procedure request received through Interventional Radiology e[facility] order queue. There are no answered order specific questions. History of Present Illness: Per chart review, Purnima Thacker is a 67 y.o. female with PMH of aortic stenosis currently admitted following TAVR POD #6 with CXR 05/17 showing R pleural fluid who presents to Interventional Radiology to undergo R chest tube placement. Remainder of patient's medical and surgical history, allergies, medications, and social/family history obtained below as previously outlined in patient's medical record. IR History: No prior procedures. Imagin05/17/23 Assessment: 67 y.o. female with R pleural fluid presenting to Interventional Radiology for R chest tube placement. Plan Planned procedure: Right chest tube placement Labs to be performed day of procedure: No labs Sedation: Fentanyl only Prophylactic antibiotic : None Contrast: No contrast Additional medications for procedure: Lidocaine Consent: Pending Medications to discontinue (and days held): None Cytopathology presence needed: No Case Urgency:: D- Intervention within 24 hrs Labs: Lab Results Component Value Date HGB 7.8 (L) 05/16/2023 HCT 22.5 (L) 05/16/2023 WBC 7.4 05/16/2023 PLATELET 120 (L) 05/16/2023 INR 1.3 05/13/2023 BUN 71 (H) 05/18/2023 CREATININE 1.64 (H) 05/18/2023 ALBUMIN 3.7 05/17/2023 BILIDIR 0.3 05/13/2023 BILITOT 0.6 05/17/2023 AST 58 (H) 05/17/2023 ALT 66 (H) 05/17/2023 ALKPHOS 86 05/17/2023 Allergies: Patient has no known allergies. Medications: No current facility-administered medications on file prior to encounter. Current Outpatient Medications on File Prior to Encounter Medication Sig Dispense Refill atorvastatin (LIPITOR) 10 mg Tablet Take 10 mg by mouth daily. aspirin 81 mg EC tablet Take 81 mg by mouth daily. hydrOXYchloroQUINE (Plaquenil) 200 mg tablet Take 1 tablet by mouth daily. 90 tablet 12 nystatin (MYCOSTATIN) 100,000 unit/gram Powder Apply topically 2 times daily as needed. cyanocobalamin, Vitamin B-12, (Vitamin B-12) 1,000 mcg tablet Take 500 mcg by mouth daily. meloxicam (Mobic) 15 mg tablet Take 15 mg by mouth daily. dilTIAZem CD (Cardizem CD) 180 mg Capsule, Sust. Release 24 hr Take 180 mg by mouth daily. OneTouch Verio test strips Strip USE DAILY OneTouch Delica Plus Lancet 33 gauge Misc USE DAILY metroNIDAZOLE (METROGEL) 0.75 % Gel Apply every other day after washing as needed. (Patient not taking: Reported on 03/18/2023) 45 g 5 amoxicillin (AMOXIL) 500 mg Tablet Take 2,000 mg by mouth once as needed. Before dental losartan (Cozaar) 25 mg Tablet Take 25 mg by mouth daily. acetaminophen (TYLENOL) 500 mg Tablet Take 2 tablets by mouth every 6 hours as needed for Pain (Please take up to 1,000 mg every 6 hours when experiencing pain -05/11.). 30 tablet 5 spironolactone (ALDACTONE) 25 mg Tablet Take 0.5 tablets by mouth daily. multivitamin (THERAGRAN) Tablet Take 1 tablet by mouth daily. Past Medical/Surgical history: Patient Active Problem List Diagnosis Code Chronic [...] fraction I35.0 Mild coronary artery disease by [facility] 11/09/2022 I25.10 Heart failure with reduced ejection fraction due to heart valve disease I50.20, I38 Cardiogenic shock R57.0 S/P TAVR (transcatheter aortic valve replacement) Z95.2 Past Medical History: Diagnosis Date Anemia Past Surgical History: Procedure Laterality Date PRG CATH PLWV LEFT HEART CATH & ARTS W/INJ & ANGIO IMG S&I N/A 11/09/2022 CORONARY ANGIOGRAPHY; W [facility],POSSIBLE PCI (WRVU 5.6) performed by Mario Alberto Escobedo MD at [facility] CATH LABS PRO AORTOPLAS FOR SUPRAVALV STEN N/A 09/21/2016 @AORTOPLASTY FOR SUPRAVALVULAR STENOSIS (WRVU 29.33) performed by Alirio Hudson MD at [facility] MAIN OR PRO REPLACEMENT PROSTHETIC AORTIC VALVE OPEN W CARDIOPULMONARY BYPASS HOMOGRF/STENT N/A 09/21/2016 @REPLACE AORTIC VALVE, OPEN, W\CPB, W\PROSTHETIC VALVE (WRVU 41.32) performed by Alirio Hudson MD at [facility] MAIN OR Social History and Habits: Social History Tobacco Use Smoking status: Never Smokeless tobacco: Never Vaping Use Vaping Use: Never used Substance Use Topics Alcohol use: No Alcohol/week: 0.0 standard drinks of alcohol Comment: none Drug use: No Significant Family History: No family history on file. Pertinent ROS: as per HPI Physical Exam: Pending (to be performed in IR the day of procedure) ASA: Pending (to be assessed in IR the day of procedure) Mallampati class: Pending (to be assessed in IR the day of procedure) 05/18/2023 Laure Ricks PA-C * Laure Ricks PA - 05/18/2023 9:15 AM EDT Images from the original note were not included. Interventional Radiology Focused Pre-procedure H&P: PCP: Magdalena Acosta MD Referring Provider: Mario Alberto Chin Planned procedure: Right chest tube placement Procedure indication: Right pleural fluid, recent TAVR IR workflow: Procedure request received through Interventional Radiology eDH order queue. There are no answered order specific questions. History of Present Illness: Per chart review, Purnima Thacker is a 67 y.o. female with PMH of aortic stenosis currently admitted following TAVR POD #6 with CXR 05/17 showing R pleural fluid who presents to Interventional Radiology to undergo R chest tube placement. Remainder of patient's medical and surgical history, allergies, medications, and social/family history obtained below as previously outlined in patient's medical record. IR History: No prior procedures. Imagin05/17/23 Assessment: 67 y.o. female with R pleural fluid presenting to Interventional Radiology for R chest tube placement. Plan Planned procedure: Right chest tube placement Labs to be performed day of procedure: No labs Sedation: Fentanyl only Prophylactic antibiotic : None Contrast: No contrast Additional medications for procedure: Lidocaine Consent: Pending Medications to discontinue (and days held): None Cytopathology presence needed: No Case Urgency:: D- Intervention within 24 hrs Labs: Lab Results Component Value Date HGB 7.8 (L) 05/16/2023 HCT 22.5 (L) 05/16/2023 WBC 7.4 05/16/2023 PLATELET 120 (L) 05/16/2023 INR 1.3 05/13/2023 BUN 71 (H) 05/18/2023 CREATININE 1.64 (H) 05/18/2023 ALBUMIN 3.7 05/17/2023 BILIDIR 0.3 05/13/2023 BILITOT 0.6 05/17/2023 AST 58 (H) 05/17/2023 ALT 66 (H) 05/17/2023 ALKPHOS 86 05/17/2023 Allergies: Patient has no known allergies. Medications: No current facility-administered medications on file prior to encounter. Current Outpatient Medications on File Prior to Encounter Medication Sig Dispense Refill atorvastatin (LIPITOR) 10 mg Tablet Take 10 mg by mouth daily. aspirin 81 mg EC tablet Take 81 mg by mouth daily. hydrOXYchloroQUINE (Plaquenil) 200 mg tablet Take 1 tablet by mouth daily. 90 tablet 12 nystatin (MYCOSTATIN) 100,000 unit/gram Powder Apply topically 2 times daily as needed. cyanocobalamin, Vitamin B-12, (Vitamin B-12) 1,000 mcg tablet Take 500 mcg by mouth daily. meloxicam (Mobic) 15 mg tablet Take 15 mg by mouth daily. dilTIAZem CD (Cardizem CD) 180 mg Capsule, Sust. Release 24 hr Take 180 mg by mouth daily. OneTouch Verio test strips Strip USE DAILY OneTouch Delica Plus Lancet 33 gauge Misc USE DAILY metroNIDAZOLE (METROGEL) 0.75 % Gel Apply every other day after washing as needed. (Patient not taking: Reported on 03/18/2023) 45 g 5 amoxicillin (AMOXIL) 500 mg Tablet Take 2,000 mg by mouth once as needed. Before dental losartan (Cozaar) 25 mg Tablet Take 25 mg by mouth daily. acetaminophen (TYLENOL) 500 mg Tablet Take 2 tablets by mouth every 6 hours as needed for Pain (Please take up to 1,000 mg every 6 hours when experiencing pain -05/11.). 30 tablet 5 spironolactone (ALDACTONE) 25 mg Tablet Take 0.5 tablets by mouth daily. multivitamin (THERAGRAN) Tablet Take 1 tablet by mouth daily. Past Medical/Surgical history: Patient Active Problem List Diagnosis Code Chronic [...] fraction I35.0 Mild coronary artery disease by [facility] 11/09/2022 I25.10 Heart failure with reduced ejection fraction due to heart valve disease I50.20, I38 Cardiogenic shock R57.0 S/P TAVR (transcatheter aortic valve replacement) Z95.2 Past Medical History: Diagnosis Date Anemia Past Surgical History: Procedure Laterality Date PRG CATH PLWV LEFT HEART CATH & ARTS W/INJ & ANGIO IMG S&I N/A 11/09/2022 CORONARY ANGIOGRAPHY; W [facility],POSSIBLE PCI (WRVU 5.6) performed by Mario Alberto Escobedo MD at [facility] CATH LABS PRO AORTOPLAS FOR SUPRAVALV STEN N/A 09/21/2016 @AORTOPLASTY FOR SUPRAVALVULAR STENOSIS (WRVU 29.33) performed by Alirio Hudson MD at [facility] MAIN OR PRO REPLACEMENT PROSTHETIC AORTIC VALVE OPEN W CARDIOPULMONARY BYPASS HOMOGRF/STENT N/A 09/21/2016 @REPLACE AORTIC VALVE, OPEN, W\CPB, W\PROSTHETIC VALVE (WRVU 41.32) performed by Alirio Hudson MD at [facility] MAIN OR Social History and Habits: Social History Tobacco Use Smoking status: Never Smokeless tobacco: Never Vaping Use Vaping Use: Never used Substance Use Topics Alcohol use: No Alcohol/week: 0.0 standard drinks of alcohol Comment: none Drug use: No Significant Family History: No family history on file. Pertinent ROS: as per HPI Physical Exam: Pending (to be performed in IR the day of procedure) ASA: Pending (to be assessed in IR the day of procedure) Mallampati class: Pending (to be assessed in IR the day of procedure) 05/18/2023 Laure Ricks PA-C * Klaudia Reid MD - 05/08/2023 5:52 PM EDT Inpatient Cardiology Progress Note Patient Name: Purnima Thacker Date of Admission: 05/08/2023 ( Hospital Day 0 days ) Service: S1 ID: Purnima Thacker is a 67 y.o. female with s/p bioprosthetic AVR in 2016 with recent concern for severe restenosis, HTN, HLD, mixed connective tissue disease, currently being managed for symptomatic severe and acute exacerbation of heart failure. Active Problems: Active Hospital Problems Diagnosis Symptomatic severe aortic stenosis with low ejection fraction Resolved Hospital Problems No resolved problems to display. HPI Per admitting physician: Purnima reports that over the past several months to years she has noticed dyspnea on exertion, progressing to the point where she cannot walk short distances on flat ground to her mailbox without getting significantly short of breath. This has acutely worsened in the past four days, which prompted her to present to [facility]. She also endorses some intermittent retrosternal chest pain with exertion.She endorses some dizziness with exertion, but has not gotten faint or passed out. At [facility] she was noted to be afebrile, blood pressure 105/64, HR 120s, satting 95% on 2L NC. Labs from [facility] are below, of note she had elevated troponin and BNP, normal lactate. CXR with pulmonary vascular congestion and bedside echo with purportedly similar LV function to prior TTE. She was loaded with aspirin and started on a heparin drip out of concern for NSTEMI, although no findings on EKG that I can see documented. She was given 20mg IV Lasix and subsequently had her pressure drop to 89/59, which prompted the transfer to us. [facility] labs: CBC - Hgb 10.5 CMP - Cr 1.1 BNP 61986 HsTrop 1358 Lactate 1.6 D-dimer 1183 Interval History Patient was admitted to [facility] due to concern on low BP iso severe , concurrent CHF exacerbation, recent diuresis. TTE obtained which showed LVEF 25% and very severe/critical stenosis of a bioprosthetic valve (mean gradient 40 mmHg, peak velocity 4.0 m/s, DI 0.15, stroke volume index 28 mL/m2). Heparin ggt was continued but low suspicion of ACS currently. Holding home antiHTN. Received lasix 40 mg IV x 1. BP appeared to be soft with SBP 80s but reassessed on other arm showed 90/70s. Pending follow up with structural heart team for expedited TAVR Physical Exam: Last value Range last 24 hrs Temperature Temp: 37.4 ??C (99.3 ??F) Temp: [36.9 ??C (98.4 ??F)-37.4 ??C (99.3 ??F)] Heart Rate Heart Rate: 97 Heart Rate: [97-113] Blood Pressure BP: 93/66 BP: (91-115)/(56-73) Respiratory Rate Resp: 19 Resp: [19-29] SpO2 SpO2: 94 % SpO2: [90 %-94 %] Weight: Patient Vitals for the past 168 hrs: Weight 05/08/23 0900 76.4 kg (168 lb 6.9 oz) Admit Weight: 76.4 kg Yesterday's net I/O's: Intake/Output Summary (Last 24 hours) at 05/08/2023 1752 Last data filed at 05/08/2023 1600 Gross per 24 hour Intake 544.05 ml Output 1000 ml Net -455.95 ml Net I/O's since admission: Patient Vitals for the past 168 hrs: Weight 05/08/23 0900 76.4 kg (168 lb 6.9 oz) Physical Exam Constitutional: General: She is awake. Interventions: Nasal cannula in place. HENT: Mouth/Throat: Mouth: Mucous membranes are moist. Eyes: Pupils: Pupils are equal, round, and reactive to light. Cardiovascular: Rate and Rhythm: Normal rate. Rhythm irregular. FrequentExtrasystoles are present. Pulses: Radial pulses are 1+ on the right side and 1+ on the left side. Heart sounds: Murmur (s2 splitting) heard. Systolic murmur is present. Pulmonary: Breath sounds: Rales present. Abdominal: General: Abdomen is protuberant. Bowel sounds are normal. Palpations: Abdomen is soft. Tenderness: There is no abdominal tenderness. Musculoskeletal: Right lower le+ Pitting Edema present. Left lower le+ Pitting Edema present. Neurological: Mental Status: She is alert and oriented to person, place, and time. Psychiatric: Behavior: Behavior is cooperative. Labs Recent Labs 05/08/23 1138 WBC 4.1 HGB 10.2* HCT 29.6* PLATELET 136* Recent Labs 05/08/23 1600 05/08/23 1138 NA -- 139 K 3.9 4.2 CL -- 105 CO2 -- 20* BUN -- 27* CREATININE -- 1.02 No results for input(s): AST, ALT, ALKPHOS, BILITOT, BILIDIR in the last 168 hours. Recent Labs 05/08/23 1600 05/08/23 1138 CALCIUM -- 9.4 MAGNESIUM 0.82 0.76 PHOS -- 4.7* No results for input(s): INR, PT, PTT in the last 168 hours. No results for input(s): CK, TROPONINT in the last 168 hours. Scheduled Medications: aspirin EC 81 mg Oral Daily atorvastatin 10 mg Oral QPM sodium chloride 0.9 % (flush) 5 mL Intravenous BID Infusing Medications: heparin (porcine) infusion 950 Units/hr (05/08/23 1600) PRN Medications: heparin (porcine) infusion AND heparin (porcine), sodium chloride 0.9 % (flush), lidocaine, acetaminophen, influenza vaccine (65 yrs +) Assessment: Purnima Thacker is a 67 y.o. female with s/p bioprosthetic AVR in 2015 with recent concern for severe restenosis, HTN, HLD, mixed connective tissue disease, currently being managed forsymptomatic severe and acute exacerbation of heart failure. #Acute decompensated heart failure #Severe symptomatic > Home meds Diltiazem 180 daily, losartan 25, spironolactone 12.5 > Holding home antiHTN as BP soft > Had been started on work up for possible elective TAVR with heart cath in 11/09/2022 showedNonobstructive coronary artery disease > TTE showed LVEF 25% and very severe/critical stenosis of a bioprosthetic valve (mean gradient 40 mmHg, peak velocity 4.0 m/s, DI 0.15, stroke volume index 28 mL/m2). > received lasix 40 mg IV in [facility] PLAN - hold diuresis - pending eval for TAVR #NSTEMI, likely type II - continue heparin gtt, - continue home ASA and statin #Hx mixed connective tissue disease - hold home hydroxychloroquine - hold home folate Code Status: Attempt Cardiopulmonary Resuscitation - Inpatient Klaudia Reid MD Internal Medicine PGY-1 Pager [phone], M1-S1 Service Associated attestation - Juan Luis Gonzalez MD - 05/08/2023 10:00 PM EDT Cardiology Attending Addendum Active Hospital Problems Diagnosis Symptomatic severe aortic stenosis with low ejection fraction Heart failure with reduced ejection fraction due to heart valve disease Mild coronary artery disease by [facility] 11/09/2022 Hyperlipidemia, unspecified History of aortic valve replacement Resolved Hospital Problems No resolved problems to display. I have interviewed and examined the patient, reviewed the available data, and have discussed my findings, assessment and plan with the patient and the team on admission to S2 service (from CV service) today. I agree with Dr. Reid's note as below. Patient with subacute systolic heart failure with dramatic LVEF drop from prior echo 09/2022. Will avoid further diuresis until re-evaluation tomorrow since she became hypotensive (to 80 mmHg systolic) after iv furosemide. Will need accelerated completion of TAVR evaluation. * Enrique Chua MD - 05/08/2023 11:17 AM EDT Images from the original note were not included. Cardiology ICU H&P Patient info: Name: Purnima Thacker : 1955 PCP: Magdalena Acosta MD PCP phone number: [phone] Date of Admission: 05/08/2023 ( Hospital Day 0 days ) Attending:Enrique Chua MD ID: Purnima Thacker is a 67 y.o. female w/ PMH of s/p bioprosthetic AVR in 2016 with recent concern for severe restenosis, HTN, HLD, mixed connective tissue disease, who presents in transfer from [facility] with worsening BONILLA and weight gain concerning for acute congestive heart failure and symptomatic . HPI: Purnima reports that over the past several months to years she has noticed dyspnea on exertion, progressing to the point where she cannot walk short distances on flat ground to her mailbox without getting significantly short of breath. This has acutely worsened in the past four days, which promptedher to present to [facility]. She also endorses some intermittent retrosternal chest pain with exertion. She endorses some dizziness with exertion, but has not gotten faint or passed out. At [facility] she was noted to be afebrile, blood pressure 105/64, HR 120s, satting 95% on 2L NC. Labs from [facility] are below, of note she had elevated troponin and BNP, normal lactate. CXR with pulmonary vascular congestion and bedside echo with purportedly similar LV function to prior TTE. She was loaded with aspirin and started on a heparin drip out of concern for NSTEMI, although no findings on EKG that I can see documented. She was given 20mg IV Lasix and subsequently had her pressure drop to 89/59, which prompted the transfer to us. [facility] labs: CBC - Hgb 10.5 CMP - Cr 1.1 BNP 59594 HsTrop 1358 Lactate 1.6 D-dimer 1183 Vasoactive & Sedating Medications: Infusions: Continuous Infusions: heparin (porcine) infusion 950 Units/hr (05/08/23 1103) Objective: Vitals Last value Range last 24 hrs Temperature Temp: 36.9 ??C (98.4 ??F) Temp: [36.9 ??C (98.4 ??F)] Heart Rate Heart Rate: (!) 105 Heart Rate: [100-107] Blood Pressure BP: 102/72 BP: (91-115)/(56-72) Art Line BP BP (Arterial Line): -- MAP (NBP): [71 mmHg-81 mmHg] Respiratory Rate Resp: 19 Resp: [19-29] SpO2 SpO2: 91 % SpO2: [90 %-93 %] Oxygen Delivery Oxygen Therapy O2 Device: Nasal cannula O2 Flow Rate (L/min): 1 L/min Ventilator Settings: Mode: , SET RR: TV: PEEP: FiO2: VARIABLES PATIENT RR: PIP: Pplateau: SpO2: OUTPUT Resp: 19 SpO2: 91 % No intake or output data in the 24 hours ending 05/08/23 1206 Patient Vitals for the past 168 hrs: Weight 05/08/23 0900 76.4 kg (168 lb 6.9 oz) Admit wt: 76.4 kg Physical Exam: Gen: in bed in NAD. HEENT: anicteric, EOMI intact, CV: RRR, 2/6 systolic murmur best heart at upper sternal border Resp: CTAB, no crackles/wheezes/ronchi, normal work of breathing Abd: normal bowel sounds, soft, non-tender to palpation, no rebound or guarding Ext: 2+ distal pulses, trace pedal edema Neuro: no focal deficits noted, CN II-XII grossly intact, moves all extremities spontaneously Psych: cooperative. Skin: no rashes, lesions, or ulcerations noted Lines/Drains/Airways Lines: Peripheral IV Line - Single Lumen 05/08/23 1004 median cubital vein (antecubital fossa), right 20 gauge (Active) Indication/Daily Review of Necessity medication therapy continuous 05/08/23 1000 Site Preparation/Maintenance dressing: dry and intact 05/08/23 1000 Securement sterile tape strips, secured with 05/08/23 1000 Patency/Maintenance flushed without difficulty;blood return, able to obtain;infusing 05/08/23 1000 Phlebitis 0-->no symptoms 05/08/23 1000 Infiltration 0-->no symptoms 05/08/23 1000 Site Signs/Symptoms no redness;no swelling;no warmth;no pain 05/08/23 1000 Labs: Recent Labs 05/08/23 1138 WBC 4.1 HGB 10.2* HCT 29.6* PLATELET 136* MCV 97.0* Medications Scheduled Meds: aspirin EC 81 mg Oral Daily atorvastatin 10 mg Oral QPM sodium chloride 0.9 % (flush) 5 mL Intravenous BID Continuous Infusions: heparin (porcine) infusion 950 Units/hr (05/08/23 1103) PRN Meds:.heparin (porcine) infusion AND heparin (porcine), sodium chloride 0.9 % (flush), lidocaine, acetaminophen, potassium chloride ER, influenza vaccine (65 yrs +) Assessment & Plan: Purnima Thacker is a 67 y.o. female w/ PMH of s/p bioprosthetic AVR in 2016 with recent concern for severe restenosis, HTN, HLD, mixed connective tissue disease, who [facility] BONILLA and weight gain concerning for acute congestive heart failure and symptomatic . Overall picture is convincing for acute heart failure exacerbation in the setting of worsening severe aortic stenosis. We will plan to obtain a formal TTE to assess the current degree of valvular dysfunction, as well as her ventricular function. We will diuresis her with 40mg IV Lasix and monitor her blood pressures. Will continue heparin drip for now but hold off on plavix loading as she more likely as a Type 2 NSTEMI in the setting of her severe and a normal cath back in October. Will see ifthe echo shows any new wall motion abnormalities. Will hold any home antihypertensives and if she'sdoing well this afternoon can probably be downgraded to the floor. Will touch base with structural heart team about expediting her planned TAVR to be done during this hospitalization. Neuro ANNIE Cardiovascular #Acute decompensated heart failure #Severe symptomatic - IV Lasix 40mg - formal TTE - hold home diltiazem, spironolactone, losartan #NSTEMI, likely type II - continue heparin gtt, - continue home ASA and statin Pulmonary ANNIE - diuresis as above, oxygen support as needed Renal/Fluid/Electrolytes ANNIE Monitor lytes while diuresing and replete K, Mg as needed Gastrointestinal/Metabolic/Nutrition # Nutrition - cardiac diet Hematology #Hx mixed connective tissue disease - hold home hydroxychloroquine - hold home folate Infection ANNIE #Routine Diet: Daily Healthy Menu Choices/Cardiac diet ([facility]) DVT Prophylaxis: heparin gtt GI Prophylaxis: none Code Status: Attempt Cardiopulmonary Resuscitation - Inpatient Dispo: Pending clinical course Lincoln Sal MD Internal Medicine, PGY-1 Cardiology [facility] #[id number] 05/08/23 12:06 PM Cardiology Staff Addendum Purnima Thacker is a 67 y.o. female whom I saw today with Dr. Sal. I have personally interviewed and examined the patient and reviewed appropriate data, including labs, ECGs, and other diagnosticstudies. I agree with the principal findings documented above, with additions and exceptions as below. The assessment and plan were formulated in discussion with me. Assessment: #Very severe/critical bioprosthetic aortic valve stenosis #Acute on chronic HFrEF, LVEF 25% #Moderate mitral regurgitation #Nonobstructive ASCVD by recent cath 10/2022 #Medical comorbidities: Mixed connective tissues disease, NICOLAS on CPAP, HTN, obesity (BMI 32) In brief, this patient presents with clinical heart failure in setting of known severe prosthetic with plan for Janet TAVR this fall. Has had substantial decrement in LVEF. Elevated Paula at OSH in setting of severe HF. Lactate, Cr normal. No chest pain. Symptoms of dyspnea are only exertional, though occur at very low level of exertion. Given mild nonobstructive disease on recent cath, worsening of valve disease rather than ACS seems most likely situation. Took diltiazem, last dose yesterday. Currently alert and awake, breathing comfortably lying flat, in no distress and speaking in full sentences. Normotensive. Plan: -IV Lasix, goal out 2L over next 24 hours -Hold home diltiazem and other antihypertensives -Trend Paula -Continue aspirin, statin. -Continue heparin for now pending Paula trend. -If remains HD stable, can transfer out of [facility]. -Structural Heart consult; will need inpatient TAVR. Enrique Chua MD, STALIN, FACC, FACP, FASE Cardiovascular Medicine documented in this encounter Procedure Notes * Crispin Timmons MD - 05/12/2023 1:15 AM EDT Arterial Line Placement Procedure Note Indication for Procedure: Arterial line was placed for invasive blood pressure monitoring. Procedure Diagnosis: Septic shock Location of Procedure: Critical Care. Risks and Benefits: The risks and benefits of this procedure were reviewed and informed consent wasobtained. Time Out: Prior to the start of the procedure, the patient's identity, intended procedure, site/side, correct patient positioning and presence of the site danny was confirmed as applicable. The medical history and chart were reviewed to rule out potential contraindications to the planned procedure. Hand Hygiene: The legal writing professor did perform hand hygiene prior to arterial line insertion. Procedure Prep: Sterile draping was applied. Skin was prepped with chlorhexidine. 5 ml of 1% Lidocaine was used for local anesthesia. Procedure Details: A 20 gauge, 2 inch catheter was placed in the right radial artery and secured with steri-strips. Tegaderm was applied.. Ultrasound guidance was utilized. There were 2 attempts. Findings: There were no procedure complications. Procedure Comments: Successful arterial line placement. Crispin Timmons MD Physician Aide Associated attestation - Onelia Schwartz MD - 05/12/2023 1:24 AM EDT I was the attending physician supervising the resident in the above care and I was present with theresident for the entire procedure. * Crispin Timmons MD - 05/12/2023 1:13 AM EDT Central Line and PA Catheter Placement Procedure Note Items highlighted in red are State Reported items for central line compliance documentation. Procedure Diagnosis: Cardiogenic shock Risks and Benefits reviewed: yes. Informed Consent obtained: yes Reason for insertion: new central line Time out performed and documented: yes Hand Hygiene performed: Yes Skin prepped with: chlorhexidine Skin prep agent completely dry at time of first puncture: yes 5 ml of 1% lidocaine was used for local anesthesia. Sterile drape: large sterile drape used Mask/eye shield: mask/eye shield used Large sterile gown: large sterile gown used Sterile gloves: sterile gloves used Cap worn: cap worn Ultrasound guidance used for insertion: Yes Kit type used: An 18 Ga. X 2.5 inch needle was placed in vein after blood return identified. Guidedby a 0.035 inch diameter guide wire, a 9 Fr., 1 lumen Introducer 10 cm in length catheter was inserted using the Seldinger Technique. Catheter type: CVL Tunneled/Non Tunneled: non tunneled Insertion Site: jugular (internal) Insertion Side: right Number of attempts: 3 Insertion successful: Yes Catheter sutured at the skin at: 10 cm . Sterile dressing: Chlorhexidine Tegaderm Findings: Patient tolerated procedure well., Wave form was appropriate., Blood returned appropriately., CVP obtained. 10 mmHG Complications: No Complications. Chest X-ray ordered: yes Patient location at time of insertion: CVCC Procedure Comments: Central venous access was successfuly obtained and confirmed with: visualization of wire with ultrasound in both long and short axis, transduction of pressures (flow was non-pulsatile) and appearance of blood. Winfall-Marily catheter was placed and locked at 55 cm. Initial CVP of 10 with PA pressures in the 40s/20s. Initial TD with CI of 1.03. Crispin Timmons MD 1:13 AM 05/12/23 Associated attestation - Onelia Schwartz MD - 05/12/2023 1:25 AM EDT I was the attending physician supervising the resident in the above care and I was present with theresident for the entire procedure. documented in this encounter Miscellaneous Notes * Plan of Care - Kia Gallego RN - 05/22/2023 9:39 AM EDT Problem: Adult Inpatient Plan of Care Goal: Plan of Care Review Outcome: Outcome (s) achieved Goal: Patient-Specific Goal (Individualized) Outcome: Outcome (s) achieved Goal: Absence of Hospital-Acquired Illness or Injury Outcome: Outcome (s) achieved Goal: Optimal Comfort and Wellbeing Outcome: Outcome (s) achieved Goal: Readiness for Transition of Care Outcome: Outcome (s) achieved Problem: Adjustment to Illness (Heart Failure) Goal: Optimal Coping Outcome: Outcome (s) achieved Problem: Cardiac Output Decreased (Heart Failure) Goal: Optimal Cardiac Output Outcome: Outcome (s) achieved Problem: Dysrhythmia (Heart Failure) Goal: Stable Heart Rate and Rhythm Outcome: Outcome (s) achieved Problem: Fluid Imbalance (Heart Failure) Goal: Fluid Balance Outcome: Outcome (s) achieved Problem: Functional Ability Impaired (Heart Failure) Goal: Optimal Functional Ability Outcome: Outcome (s) achieved Problem: Oral Intake Inadequate (Heart Failure) Goal: Optimal Nutrition Intake Outcome: Outcome (s) achieved Problem: Respiratory Compromise (Heart Failure) Goal: Effective Oxygenation and Ventilation Outcome: Outcome (s) achieved Problem: Sleep Disordered Breathing (Heart Failure) Goal: Effective Breathing Pattern During Sleep Outcome: Outcome (s) achieved Problem: Fall Injury Risk Goal: Absence of Fall and Fall-Related Injury Outcome: Outcome (s) achieved * Care Management Discharge - Aliza Martino RN - 05/22/2023 9:20 AM EDT CARE MANAGEMENT FINAL DISCHARGE NOTE Chart reviewed, care reviewed with primary team and at interdisciplinary rounds. Patient is medically ready for discharge to home with family/friend support and [facility], pt will also have FWW delivered to her prior to her d/c. Needs for Transition of Care: Plan for discharge is: Home w/ Services Outpatient Agency/Support Group Needs: Homecare agency Home Health Services: Physical Therapy, Occupational Therapy Agency Referrals & Follow-up Care: Contact information for follow-up Home Health & Hospice, [place] [address] [place] [address] Cardiac Rehab, [facility] [address] [place] [address] [place] [address] Home Health & Hospice, [place] [address] [place] [address] Transportation: family or friend will provide *Brother Raymond on Tuesday 05/22 at 1000 Functional status prior to admission: Assistive Person Home Environment: Others in the home: alone. Current Living Arrangements: home/apartment/condo. Accessibility Concerns:no concerns. Current Functional Ability: Independent, Assistive Equipment *Front wheeled walker DME used at home: none DME Needed at Discharge: FWW Ambulatory Support Needs: Walker - Front Wheeled Provider: [facility] Delivery: Hosp Room *Order pended 05/21 Patient is insured through: Primary Insurance: MEDICARE Payor: MEDICARE / Plan: MEDICARE PART A & B / Product Type: *No Product type* / Secondary Insurance: [employer] [place] Prescription Coverage: Yes This plan was formulated with input from patient, family (please identify family/friend involved ifapplicable) and team. All are in agreement with plan. Aliza Martino MSN-Ed, RN ACM technical sales manager Office of Care Management Pager #[phone] * Plan of Care - Favian Mckeon RN - 05/22/2023 7:14 AM EDT Problem: Adult Inpatient Plan of Care Goal: Plan of Care Review Outcome: Ongoing (Interventions Implemented as Appropriate) Goal: Patient-Specific Goal (Individualized) Outcome: Ongoing (Interventions Implemented as Appropriate) Goal: Absence of Hospital-Acquired Illness or Injury Outcome: Ongoing (Interventions Implemented as Appropriate) Goal: Optimal Comfort and Wellbeing Outcome: Ongoing (Interventions Implemented as Appropriate) Goal: Readiness for Transition of Care Outcome: Ongoing (Interventions Implemented as Appropriate) Problem: Adjustment to Illness (Heart Failure) Goal: Optimal Coping Outcome: Ongoing (Interventions Implemented as Appropriate) Problem: Cardiac Output Decreased (Heart Failure) Goal: Optimal Cardiac Output Outcome: Ongoing (Interventions Implemented as Appropriate) Problem: Dysrhythmia (Heart Failure) Goal: Stable Heart Rate and Rhythm Outcome: Ongoing (Interventions Implemented as Appropriate) Problem: Fluid Imbalance (Heart Failure) Goal: Fluid Balance Outcome: Ongoing (Interventions Implemented as Appropriate) Problem: Functional Ability Impaired (Heart Failure) Goal: Optimal Functional Ability Outcome: Ongoing (Interventions Implemented as Appropriate) Problem: Oral Intake Inadequate (Heart Failure) Goal: Optimal Nutrition Intake Outcome: Ongoing (Interventions Implemented as Appropriate) Problem: Respiratory Compromise (Heart Failure) Goal: Effective Oxygenation and Ventilation Outcome: Ongoing (Interventions Implemented as Appropriate) Problem: Sleep Disordered Breathing (Heart Failure) Goal: Effective Breathing Pattern During Sleep Outcome: Ongoing (Interventions Implemented as Appropriate) Problem: Fall Injury Risk Goal: Absence of Fall and Fall-Related Injury Outcome: Ongoing (Interventions Implemented as Appropriate) * Plan of Care - Kia Gallego RN - 05/21/2023 4:52 PM EDT Problem: Adult Inpatient Plan of Care Goal: Plan of Care Review Outcome: Ongoing (Interventions Implemented as Appropriate) Goal: Patient-Specific Goal (Individualized) Outcome: Ongoing (Interventions Implemented as Appropriate) Goal: Absence of Hospital-Acquired Illness or Injury Outcome: Ongoing (Interventions Implemented as Appropriate) Goal: Optimal Comfort and Wellbeing Outcome: Ongoing (Interventions Implemented as Appropriate) Goal: Readiness for Transition of Care Outcome: Ongoing (Interventions Implemented as Appropriate) Problem: Adjustment to Illness (Heart Failure) Goal: Optimal Coping Outcome: Ongoing (Interventions Implemented as Appropriate) Problem: Cardiac Output Decreased (Heart Failure) Goal: Optimal Cardiac Output Outcome: Ongoing (Interventions Implemented as Appropriate) Problem: Dysrhythmia (Heart Failure) Goal: Stable Heart Rate and Rhythm Outcome: Ongoing (Interventions Implemented as Appropriate) Problem: Fluid Imbalance (Heart Failure) Goal: Fluid Balance Outcome: Ongoing (Interventions Implemented as Appropriate) Problem: Functional Ability Impaired (Heart Failure) Goal: Optimal Functional Ability Outcome: Ongoing (Interventions Implemented as Appropriate) Problem: Oral Intake Inadequate (Heart Failure) Goal: Optimal Nutrition Intake Outcome: Ongoing (Interventions Implemented as Appropriate) Problem: Respiratory Compromise (Heart Failure) Goal: Effective Oxygenation and Ventilation Outcome: Ongoing (Interventions Implemented as Appropriate) Problem: Sleep Disordered Breathing (Heart Failure) Goal: Effective Breathing Pattern During Sleep Outcome: Ongoing (Interventions Implemented as Appropriate) Problem: Fall Injury Risk Goal: Absence of Fall and Fall-Related Injury Outcome: Ongoing (Interventions Implemented as Appropriate) * Care Management - Lana Chaudhary RN - 05/21/2023 4:46 PM EDTSumavis: [facility] referral OFFICE OF CARE MANAGEMENT PROGRESS NOTE LOS: Hospital Day 13 days Chart reviewed, care reviewed with primary team and at interdisciplinary rounds. Decision Maker: Self Functional status prior to admission: Assistive Person Home Environment: Others in the home: alone. Current Living Arrangements: home/apartment/condo. Accessibility Concerns: no concerns. Current Functional Ability: Independent, Assistive Equipment *Front wheeled walker DME used at home: none DME Needed at Discharge: Yes Ambulatory Support Needs: Walker - Front Wheeled Provider: [facility] Delivery: In Process *Order pended 05/21 Patient is insured through: Primary Insurance: MEDICARE Payor: MEDICARE / Plan: MEDICARE PART A & B / Product Type: *No Product type* / Secondary Insurance: [employer] [facility] [place] Last Physical Therapy Recommendation: (Home with assist from Brother; Friend arriving Tues) with walker, front wheeled Last Occupational Therapy Recommendation: swing bed rehabilitation facility, detention facility (vs home with support for IADLs) with walker, front wheeled, shower chair Plan for discharge is: Home w/ Services Outpatient Agency/Support Group Needs: Homecare agency Home Health Services: Physical Therapy, Occupational Therapy Agency Referrals: I have met with the patient to: discuss discharge planning needs. describing our affiliations within the [facility] and educate about their right to choose where referrals are sent. provide a list of Home Health Agencies / Durable Medical Equipment vendors which serve their preferred geographic area. They have requested referrals to: [facility] [address] [place] [id number] [facility] [place], [place] Note routed to a Horse Racer who will communicate referrals to facilities and provide any required information. Transportation: family or friend will provide *Brother Raymond on Tuesday 05/22 at 1000 Barriers to discharge: Does not have home 22/02 assist available until tomorrow Tuesday 05/22 Plan going forward: Discharge home into the 22/02 home care of brother Raymond with [facility] FWW and [facility] PT/OT services on Tuesday 05/22 at 1000. Care Management will continue to follow and assist with discharge planning and coordination of care as indicated. Anticipated Date of Discharge: 05/22/2023 * Plan of Care - Favian Mckeon RN - 05/21/2023 6:27 AM EDT Problem: Adult Inpatient Plan of Care Goal: Plan of Care Review Outcome: Ongoing (Interventions Implemented as Appropriate) Goal: Patient-Specific Goal (Individualized) Outcome: Ongoing (Interventions Implemented as Appropriate) Goal: Absence of Hospital-Acquired Illness or Injury Outcome: Ongoing (Interventions Implemented as Appropriate) Goal: Optimal Comfort and Wellbeing Outcome: Ongoing (Interventions Implemented as Appropriate) Goal: Readiness for Transition of Care Outcome: Ongoing (Interventions Implemented as Appropriate) Problem: Adjustment to Illness (Heart Failure) Goal: Optimal Coping Outcome: Ongoing (Interventions Implemented as Appropriate) Problem: Cardiac Output Decreased (Heart Failure) Goal: Optimal Cardiac Output Outcome: Ongoing (Interventions Implemented as Appropriate) Problem: Dysrhythmia (Heart Failure) Goal: Stable Heart Rate and Rhythm Outcome: Ongoing (Interventions Implemented as Appropriate) Problem: Fluid Imbalance (Heart Failure) Goal: Fluid Balance Outcome: Ongoing (Interventions Implemented as Appropriate) Problem: Functional Ability Impaired (Heart Failure) Goal: Optimal Functional Ability Outcome: Ongoing (Interventions Implemented as Appropriate) Problem: Oral Intake Inadequate (Heart Failure) Goal: Optimal Nutrition Intake Outcome: Ongoing (Interventions Implemented as Appropriate) Problem: Respiratory Compromise (Heart Failure) Goal: Effective Oxygenation and Ventilation Outcome: Ongoing (Interventions Implemented as Appropriate) Problem: Sleep Disordered Breathing (Heart Failure) Goal: Effective Breathing Pattern During Sleep Outcome: Ongoing (Interventions Implemented as Appropriate) Problem: Fall Injury Risk Goal: Absence of Fall and Fall-Related Injury Outcome: Ongoing (Interventions Implemented as Appropriate) * Plan of Care - Gabino Calhoun RN - 05/20/2023 5:20 PM EDT OUTCOME EVALUATION NOTE: OUTCOME SUMMARY: Pt had uneventful shift. A&Ox4. No reports of CP or SOB. VSS. Reports 3/10 pain throughout ribcage upon inspiration, managed with tylenol. Remains on RA O2. NSR with frequent PVCs and 15 sec run of ventricular trigeminy on tele. Team notified, potassium and magnesium replaced. See scanned docs.Ambulated in weems x2 with FWW. Worked with OT. Questions answered throughout shift. Call monsalve and personal belongings within reach. PLAN MOVING FORWARD: D/C planning as appropriate. INDIVIDUALIZED FALL PREVENTION INTERVENTIONS: Patient-specific fall risk factors per assessment: [current deficits]: Tele wires, unfamiliar environment Assistance [level of assistance required for transfers and ambulation]: SBA with FWW Supervision [direct monitoring required during toileting and ADLs]: SBA Surveillance [continuous indirect monitoring]: Telemetry, purposeful rounding, call monsalve within reach Patient-specific fall prevention interventions for sensory deficits provided, if applicable: Bed/chair alarm CPG GOAL OUTCOME EVALUATION: Ongoing Problem: Adult Inpatient Plan of Care Goal: Plan of Care Review Outcome: Ongoing (Interventions Implemented as Appropriate) Goal: Patient-Specific Goal (Individualized) Outcome: Ongoing (Interventions Implemented as Appropriate) Goal: Absence of Hospital-Acquired Illness or Injury Outcome: Ongoing (Interventions Implemented as Appropriate) Goal: Optimal Comfort and Wellbeing Outcome: Ongoing (Interventions Implemented as Appropriate) Goal: Readiness for Transition of Care Outcome: Ongoing (Interventions Implemented as Appropriate) Problem: Adjustment to Illness (Heart Failure) Goal: Optimal Coping Outcome: Ongoing (Interventions Implemented as Appropriate) Problem: Cardiac Output Decreased (Heart Failure) Goal: Optimal Cardiac Output Outcome: Ongoing (Interventions Implemented as Appropriate) Problem: Dysrhythmia (Heart Failure) Goal: Stable Heart Rate and Rhythm Outcome: Ongoing (Interventions Implemented as Appropriate) Problem: Fluid Imbalance (Heart Failure) Goal: Fluid Balance Outcome: Ongoing (Interventions Implemented as Appropriate) Problem: Functional Ability Impaired (Heart Failure) Goal: Optimal Functional Ability Outcome: Ongoing (Interventions Implemented as Appropriate) Problem: Oral Intake Inadequate (Heart Failure) Goal: Optimal Nutrition Intake Outcome: Ongoing (Interventions Implemented as Appropriate) Problem: Respiratory Compromise (Heart Failure) Goal: Effective Oxygenation and Ventilation Outcome: Ongoing (Interventions Implemented as Appropriate) Problem: Sleep Disordered Breathing (Heart Failure) Goal: Effective Breathing Pattern During Sleep Outcome: Ongoing (Interventions Implemented as Appropriate) Problem: Fall Injury Risk Goal: Absence of Fall and Fall-Related Injury Outcome: Ongoing (Interventions Implemented as Appropriate) * Plan of Care - Naldo Hernadez RN - 05/19/2023 4:08 PM EDT Shift Summary: Assumed care of pt at 0700. See VS and assessments as charted. Patient Alert and Oriented x4. No complaints of CP or SOB. O2 RA. NSR with freq PVCs on tele, see scanned docs. Provider in to remove chest tube @ 0750. SBA to BR. Ambulated around unit with PT today. Abdominal Xray done.Frequent rounding provided for comfort and safety, bed and chair alarm on, call light in reach. Plan of care ongoing. Plan Moving Forwards: D/C to Short Term Rehab Hold lasix Care Plan Outcome Evaluation: Problem: Adult Inpatient Plan of Care Goal: Plan of Care Review Outcome: Ongoing (Interventions Implemented as Appropriate) Goal: Patient-Specific Goal (Individualized) Outcome: Ongoing (Interventions Implemented as Appropriate) Goal: Absence of Hospital-Acquired Illness or Injury Outcome: Ongoing (Interventions Implemented as Appropriate) Goal: Optimal Comfort and Wellbeing Outcome: Ongoing (Interventions Implemented as Appropriate) Goal: Readiness for Transition of Care Outcome: Ongoing (Interventions Implemented as Appropriate) Problem: Adjustment to Illness (Heart Failure) Goal: Optimal Coping Outcome: Ongoing (Interventions Implemented as Appropriate) Problem: Cardiac Output Decreased (Heart Failure) Goal: Optimal Cardiac Output Outcome: Ongoing (Interventions Implemented as Appropriate) Problem: Dysrhythmia (Heart Failure) Goal: Stable Heart Rate and Rhythm Outcome: Ongoing (Interventions Implemented as Appropriate) Problem: Fluid Imbalance (Heart Failure) Goal: Fluid Balance Outcome: Ongoing (Interventions Implemented as Appropriate) Problem: Functional Ability Impaired (Heart Failure) Goal: Optimal Functional Ability Outcome: Ongoing (Interventions Implemented as Appropriate) Problem: Oral Intake Inadequate (Heart Failure) Goal: Optimal Nutrition Intake Outcome: Ongoing (Interventions Implemented as Appropriate) Problem: Respiratory Compromise (Heart Failure) Goal: Effective Oxygenation and Ventilation Outcome: Ongoing (Interventions Implemented as Appropriate) Problem: Sleep Disordered Breathing (Heart Failure) Goal: Effective Breathing Pattern During Sleep Outcome: Ongoing (Interventions Implemented as Appropriate) Problem: Fall Injury Risk Goal: Absence of Fall and Fall-Related Injury Outcome: Ongoing (Interventions Implemented as Appropriate) * Plan of Care - Miguel Brody RN - 05/18/2023 6:32 PM EDT SHIFT EVALUATION NOTE: SHIFT SUMMARY: Pt AOx4. VSS on RA, assessment as charted. Pt denies CP or SOB. NSR on tele, see scanned documents.Pt went to IR for right side chest tube placement. Chest tube set up and attached to wall suction. See flowsheets for I&O. Uneventful shift for pt, call monsalve within reach. PLAN MOVING FORWARD: Monitor chest tube output Continue to monitor per protocol Discharge planning as appropriate INDIVIDUALIZED FALL PREVENTION INTERVENTIONS: Patient-specific fall risk factors per assessment: [current deficits]: Limited mobility, tele wires, SpO2 monitor wire, unfamiliar environment Assistance [level of assistance required for transfers and ambulation]: Stand-by walker Supervision [direct monitoring required during toileting and ADLs]: Stand-by w/ walker Surveillance [continuous indirect monitoring]: Telemetry, continuous pulse oximetry Patient-specific fall prevention interventions for sensory deficits provided, if applicable: Lighting adjusted for specific tasks/activities, purposeful rounding, able to make needs known, non skid socks, bed in lowest/locked position, personal items within reach, call monsalve within reach CARE PLAN GOAL OUTCOME EVALUATION: Problem: Adult Inpatient Plan of Care Goal: Plan of Care Review Outcome: Ongoing (Interventions Implemented as Appropriate) Goal: Patient-Specific Goal (Individualized) Outcome: Ongoing (Interventions Implemented as Appropriate) Goal: Absence of Hospital-Acquired Illness or Injury Outcome: Ongoing (Interventions Implemented as Appropriate) Goal: Optimal Comfort and Wellbeing Outcome: Ongoing (Interventions Implemented as Appropriate) Goal: Readiness for Transition of Care Outcome: Ongoing (Interventions Implemented as Appropriate) Problem: Adjustment to Illness (Heart Failure) Goal: Optimal Coping Outcome: Ongoing (Interventions Implemented as Appropriate) Problem: Cardiac Output Decreased (Heart Failure) Goal: Optimal Cardiac Output Outcome: Ongoing (Interventions Implemented as Appropriate) Problem: Dysrhythmia (Heart Failure) Goal: Stable Heart Rate and Rhythm Outcome: Ongoing (Interventions Implemented as Appropriate) Problem: Fluid Imbalance (Heart Failure) Goal: Fluid Balance Outcome: Ongoing (Interventions Implemented as Appropriate) Problem: Functional Ability Impaired (Heart Failure) Goal: Optimal Functional Ability Outcome: Ongoing (Interventions Implemented as Appropriate) Problem: Oral Intake Inadequate (Heart Failure) Goal: Optimal Nutrition Intake Outcome: Ongoing (Interventions Implemented as Appropriate) Problem: Respiratory Compromise (Heart Failure) Goal: Effective Oxygenation and Ventilation Outcome: Ongoing (Interventions Implemented as Appropriate) Problem: Sleep Disordered Breathing (Heart Failure) Goal: Effective Breathing Pattern During Sleep Outcome: Ongoing (Interventions Implemented as Appropriate) Problem: Fall Injury Risk Goal: Absence of Fall and Fall-Related Injury Outcome: Ongoing (Interventions Implemented as Appropriate) * Brief Op Note - Laure Ricks PA - 05/18/2023 4:36 PM EDT INTERVENTIONAL RADIOLOGY BRIEF PROCEDURE NOTE Patient Name: Purnima Thacker : 1955 Case Date: 05/18/2023 Operators: Attending: All Staff: Staff Role Juanita Almaguer [employer] Salesperson Laure Ricks PA Physician Endoscope Technician Magdalena Rodriguez information assurance analyst Nurse Consuelo Espinoza information assurance analyst Nurse Post-operative diagnosis/Indication: Right pleural effusion Name of Procedure Performed: Planned procedure: Right chest tube placement Description of the procedure: Ultrasound-guided R chest tube placement Findings of the procedure: Moderate R pleural effusion EBL: 1 mL Specimens: None Complications: No immediate Plan/Disposition: Transfer back to inpatient unit. FULL PROCEDURE NOTE TO FOLLOW IN IMAGE REPORT * Care Management - Mario Alberto Olmos RN - 05/18/2023 12:40 PM EDT OFFICE OF CARE MANAGEMENT PROGRESS NOTE LOS: Hospital Day 10 days Chart reviewed, care reviewed with primary team and at interdisciplinary rounds. Patient continues to meet inpatient level of care related to: /SP TAVR. Per note by EKATERINA Cash on 05/18 @ 0813,Cardiac Surgery Progress Note Purnima Thacker is a 67 y.o. 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 PMH of s/p tissue AVR (2017), mixed connective tissue disease HTN, HLD, NICOLAS, diverticulosis, rosacea, essential tremor, and depression. 24h Events: Cr improved to 1.64 +BM S: Doing well. No complaints other than does not know where she is going. Also having feelings of ups and downs. Breathing ok, worked with PT yesterday. Shen diet. +flatus, + bm. O: Temp: [36.4 ??C (97.6 ??F)-37.2 ??C (98.9 ??F)] Heart Rate: [87-97] Resp: [10-23] BP: (99-117)/(55-77) SpO2: [91 %-99 %] Heart Rate from SpO2: -- 05/17 0701 - 05/18 0700 In: 1001.6 [P.O.:990; I.V.:11.6] Out: 1600 [Urine:1600] Admit weight: 76.4 kg Current weight: Weight: 76.9 kg (169 lb 8 oz) Physical Exam: General: Sitting in chair. Pleasant. Neuro: Awake and alert. No gross neurological deficit. Lungs: Non-labored respirations on RA, CTABL diminished bases R>L Heart: rrr, s1s2 no mrg Abdomen: Soft, NTND +bs Ext: WWP, no edema Groins: soft, no hematoma, right groin ecchymotic, nontender Tubes/Lines/Drains: PIV Assessment/Plan: 67 y.o. female 6 Days Post-Op Janet TF TAVR for prosthetic . #Severe prosthetic AV stenosis s/p Janet TF TAVR #Cardiogenic shock #s/p LM stent placement ASA 81' Ticagrelor - will continue for 1 year Lopressor 12.5 tid EKG stable Regular diet RBOs Wean NC as tolerated to maintain SpO >92%, pulm toilet PT consult for deconditioned state #HLD Holding Lipitor for given transaminitis LFT's improved will restart #HTN Hold home Losartan and Diltiazem BB 12.5 tid #Mixed connective tissue disease Hold home Meloxicam, Plaquenil Oxy prn #Oliguric EVANS - improving Secondary to cardiogenic shock and DYLAN Holding lasix for now; autodiuresing. Daily BMP. Avoid nephrotoxic drugs Consulted nephrology, appreciate recs #Transaminitis Repeat LFTs today improved #Pleurisy #Small bilateral pleural effusions Small bilateral pleural effusions d/t cardiogenic shock. R>L effusion on CXR. Will order IR pigtail for right side today. Oxy prn. Hold NSAIDS given EVANS Disposition: Floor Status, Full Code Attempt Cardiopulmonary Resuscitation - Inpatient Decision Maker: Self Functional status prior to admission: Assistive Person Home Environment: Others in the home: alone. Current Living Arrangements: home/apartment/condo. Accessibility Concerns: no concerns. Current Functional Ability: Independent DME used at home: none DME Needed at Discharge: No Patient is insured through: Primary Insurance: MEDICARE Payor: MEDICARE / Plan: MEDICARE PART A & B / Product Type: *No Product type* / Secondary Insurance: [facility] [place] Last Physical Therapy Recommendation: detention facility, swing bed rehabilitation facility with to be determined Last Occupational Therapy Recommendation: with Plan for discharge is: Senior Living Facility / Swing Outpatient Agency/Support Group Needs: None Agency Referrals: Based on discussions with the multi-disciplinary healthcare team, the patient would benefit from SNF / Swing level of care at discharge. I have met with the patient to: discuss discharge planning needs. provide the [facility] Office of [place] Management letter from the Manager Room pertaining to rehab referrals. provide a letter describing our affiliations within the [facility] and educate about their right to choose where referrals are sent. provide the CMS Star Quality Rating handout. review the different levels of rehab including SNF, swing, and acute. provide a list of facilities within their preferred geographic area. request that they provide at least three choices for referral. They have requested referrals to: [facility] [address] [place] [address] [facility] ([facility]) [address] [place] [address] (Accepts pts only after exhausting all other local SNF options) [facility] (Swing) ([facility]) [address] [place] [address] PHONE: [phone] FAX: [phone] [facility] ([place]) ([facility]) [address] [place] [address] PHONE: [phone] FAX: [phone] Note routed to a Horse Racer who will communicate referrals to facilities and provide any required information. Transportation: family or friend will provide Barriers to discharge: Discharge planning Plan going forward: Care Management will continue to follow and assist with discharge planning and coordination of care as indicated. Anticipated Date of Discharge: 05/20/2023 Mario Alberto Olmos RN * Plan of Care - Miguel Brody RN - 05/17/2023 6:34 PM EDT SHIFT EVALUATION NOTE: SHIFT SUMMARY: Pt AOx4. VSS on RA, assessment as charted. Pt denies CP or SOB. NSR on tele, see scanned documents.See flowsheets for I&O. Pt arrived to unit mid-morning. Frequent PVCs. Team notified. Magnesiumand metoprolol given. Uneventful shift for pt, call monsalve within reach. Possible d/c to rehab tomorrow (05/18). PLAN MOVING FORWARD: Monitor ectopy Continue to monitor per protocol Discharge planning as appropriate INDIVIDUALIZED FALL PREVENTION INTERVENTIONS: Patient-specific fall risk factors per assessment: [current deficits]: Limited mobility, tele wires, SpO2 monitor wire, unfamiliar environment Assistance [level of assistance required for transfers and ambulation]: Stand-by Supervision [direct monitoring required during toileting and ADLs]: Stand-by Surveillance [continuous indirect monitoring]: Telemetry, continuous pulse oximetry Patient-specific fall prevention interventions for sensory deficits provided, if applicable: Lighting adjusted for specific tasks/activities, purposeful rounding, able to make needs known, non skid socks, bed in lowest/locked position, personal items within reach, call monsalve within reach CARE PLAN GOAL OUTCOME EVALUATION: Problem: Adult Inpatient Plan of Care Goal: Plan of Care Review Outcome: Ongoing (Interventions Implemented as Appropriate) Goal: Patient-Specific Goal (Individualized) Outcome: Ongoing (Interventions Implemented as Appropriate) Goal: Absence of Hospital-Acquired Illness or Injury Outcome: Ongoing (Interventions Implemented as Appropriate) Goal: Optimal Comfort and Wellbeing Outcome: Ongoing (Interventions Implemented as Appropriate) Goal: Readiness for Transition of Care Outcome: Ongoing (Interventions Implemented as Appropriate) Problem: Adjustment to Illness (Heart Failure) Goal: Optimal Coping Outcome: Ongoing (Interventions Implemented as Appropriate) Problem: Cardiac Output Decreased (Heart Failure) Goal: Optimal Cardiac Output Outcome: Ongoing (Interventions Implemented as Appropriate) Problem: Dysrhythmia (Heart Failure) Goal: Stable Heart Rate and Rhythm Outcome: Ongoing (Interventions Implemented as Appropriate) Problem: Fluid Imbalance (Heart Failure) Goal: Fluid Balance Outcome: Ongoing (Interventions Implemented as Appropriate) Problem: Functional Ability Impaired (Heart Failure) Goal: Optimal Functional Ability Outcome: Ongoing (Interventions Implemented as Appropriate) Problem: Oral Intake Inadequate (Heart Failure) Goal: Optimal Nutrition Intake Outcome: Ongoing (Interventions Implemented as Appropriate) Problem: Respiratory Compromise (Heart Failure) Goal: Effective Oxygenation and Ventilation Outcome: Ongoing (Interventions Implemented as Appropriate) Problem: Sleep Disordered Breathing (Heart Failure) Goal: Effective Breathing Pattern During Sleep Outcome: Ongoing (Interventions Implemented as Appropriate) * Consult Note - Jana Crenshaw RN - 05/17/2023 10:25 AM EDT [facility] Purnima Thacker was seen today regarding participation in the outpatient Phase 2 Cardiac Rehabilitation at [facility]. The patient agrees to a referral to this program. The referral will be sent at discharge and the patient should be contacted by the Program within 1- 2 weeks from discharge. * Plan of Care - Leticia Price RN - 05/14/2023 6:45 PM EDT Minimal UOP throughout shift. Nephrology consulted. Went on 2 walks around unit today with minimal fatigue/shortness of breath. * Consult Note - Malathi Muro MD - 05/14/2023 11:06 AM EDT Images from the original note were not included. [facility] NEPHROLOGY/HYPERTENSION CONSULT NOTE PATIENT: Purnima Thacker : 1955 Magdalena Acosta MD REASON FOR CONSULTATION: EVANS HPI: Purnima Thacker is a 67 y.o. female with cardiogenic shock 2/2 severe prosthetic aortic valve stenosis who is 2 Days Post-Op valve in valve TF TAVR. PMH of s/p tissue AVR (2017), mixed connective tissue disease HTN, HLD, NICOLAS, diverticulosis, rosacea, essential tremor, and depression. Nephrology consulted for EVANS. In brief, the patient was admitted to the CVCC in setting of low BP with severe and concurrent CHF exacerbation. TTE showed LVEF 25% and very severe/critical stenosis of a bioprosthetic valve (mean gradient 40 mmHg, peak velocity 4.0 m/s, DI 0.15, stroke volume index 28 mL/m2). Patient underwentTAVR evaluation and imaging in her course. She ultimately underwent a rlhay-us-[id number] procedure on and tolerated it well (see operative details). Came out of the porcedure intubated and sedated on some pressors support.. She ultimately was extubated two days ago and placed on a milrinone gtt. Patient today is doing well. She only complains of some abdominal pain. Not producing sufficient urine in setting of diuresis being administered. Cr trends noted. ROS: 4 point review of sytem was done, everything was negative except for what was mentioned above. INTAKE/OUTPUTS: Intake/Output Summary (Last 24 hours) at 05/14/20232305 Last data filed at 05/14/20232199 Gross per 24 hour Intake 679.6 ml Output 244 ml Net 435.6 ml MEDICATIONS: ticagrelor 90 mg Oral BID sodium chloride 0.9 % (flush) 5 mL Intravenous BID aspirin 81 mg Oral Daily Or aspirin 300 mg Rectal Daily pantoprazole EC 40 mg Oral Daily Or pantoprazole 40 mg Intravenous Daily senna-docusate 2 tablet Oral Daily Vasoactive/Sedating Meds: milrinone 0.125 mcg/kg/min (05/14/232199) niCARdipine VITALS: Last value Range last 24 hrs Temperature Temp: 36.5 ??C (97.7 ??F) Temp: [36.3 ??C (97.4 ??F)-36.5 ??C (97.7 ??F)] Heart Rate Heart Rate: 100 Heart Rate: [88-114] Blood Pressure BP: 116/57 BP: (88-123)/(52-72) Respiratory Rate Resp: 15 Resp: [12-] SpO2 SpO2: 97 % SpO2: [94 %-99 %] Ventilator: Mode PS/CPAP Rate (S) 18 TV 380 PEEP 8 FiO2 40 % Pplateau 18 PHYSICAL EXAM: Patient is awake alert not in acute distress. Sitting in chair on NC No jaundice oral mucosa moist Neck- supple trachea central Chest- Diminished at bases but otherwise CTA bilaterally. Central line present Abdomen-nontender nondistended, bowel sounds present. Art present Extremities-peripheral pulses present, no edema Neuro-patient is awake alert, moving all 4 limbs, motor examination is grossly normal. No asterixis. STUDIES: LABS: CBC: Recent Labs 05/14/2310905/13/2311405/12/23 1405 05/12/23 0105 WBC 11.2* 8.6 -- 9.0 HGB 7.2* 7.8* 8.5* 9.8* PLATELET 112* 130* -- 186 Chemistry: Recent Labs 05/14/2310905/13/2311405/12/23 1405 05/12/23 0600 NA 132* 132* -- 131* K 4.1 3.8 3.9 4.3 CL 94* 95* -- 97* CO2 18* 20* -- 14* BUN 98* 82* -- 67* CREATININE 4.80* 3.15* -- 2.01* GLUCOSE 120 107 -- 167 Recent Labs 05/14/23 0110 05/13/23 0115 05/12/23 0600 05/09/23 0400 05/08/23 1600 05/08/23 1138 CALCIUM 8.5 8.3* 8.6 < > -- 9.4 MAGNESIUM -- -- -- -- 0.82 0.76 PHOS -- -- -- -- -- 4.7* < > = values in this interval not displayed. ABG (Arterial Blood Gas) Recent Labs 05/12/23 1557 05/12/23 1423 05/12/23 1105 PHART 7.39 7.37 7.34* [id number] 33* 36 42 PO2ART 101 102 73* [id number] 19.5* 20.4 22.1 LACTATEVEN 1.5 1.8 2.8* [id number] 40 40 40 PFRATIOART2 252 255 182 VBG (Venous Blood Gas) Recent Labs 05/12/23 1557 05/12/23 1423 05/12/23 1105 LACTATEVEN 1.5 1.8 2.8* Mixed Venous Sat Recent Labs 05/12/23 1425 05/12/23 0508 05/12/23 0321 [id number] 59.9 30.7 32.7 LFT's: Recent Labs 05/14/23 0110 05/13/23 0115 05/12/23 0600 BILITOT 0.4 0.5 0.9 BILIDIR -- 0.3 -- ALBUMIN 3.6 3.0* 3.5 ALKPHOS 86 85 100 ALT 437* 903* 1,174* AST 319* 792* 1,435* No results found for: UPROTCREAT No results found for: TPROTEINPEP, ALBELECT No results found for: MICROALBUR, [id number] No results found for: HA1C Lab Results Component Value Date CALCIUM 8.5 05/14/2023 PHOS 4.7 (H) 05/08/2023 No results found for: 25OHVITD MICROBIOLOGY: ProcedureComponentValueUnitsDate/TimeUrine culture [[id number]]Collected: 05/11/23 1922Lab Status: Final resultSpecimen: Clean Catch UrineUpdated: 05/12/23 1844Urine Culture--50,000-99,000 cfu/ml Normal mucosal herman Susceptibility testing not routinely performed for Coagulase Negative Staphylococcus species and other Gram Positive organisms from urine. IMAGING: CTA 05/11: IMPRESSION 1. Pre TAVR measurements as above. 2. Right greater than left perinephric edema. This may be age related. Correlation with urinalysis suggested to exclude urinary tract infection. Unexpected finding. 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 The patient with normal baseline renal function suffered from a renal insult around admissoin and specifically around 05/11 to account for her spike in Cr. Likely etiology is the contrast in a susceptible kidney from the poor hemodynamics she had from forward perfusion. The patient's Cr curve is steep and she is not in the recovery phase currently; morever, she is oliguric and not entirely responseive to lasix diuresis. We are primarily consulted for assessment if this patient needs PRINTING GRAY CLOTH TENDER. Atthis time, we can likely hold off on PRINTING GRAY CLOTH TENDER. Her volume status appears sufficient and her metabolic kanwal angements with mild acidosis is not too profound. Patient does not have significant uremic symptoms. We can hold off for today, but the patient is a high risk candidate for needing PRINTING GRAY CLOTH TENDER in future daysespecially if her Cr curve trends the direction it is for the next several days. S/p Vgode-ut-Mzbxi TF TAVR: Management per cardiology. On milrinone gtt. PLAN: - Please obtain following diagnostics: renal US, urinalysis, urine prot/Cr ratio, urine albumin/Cr ratio, CK, uric acid, serum osmol, daily VBGs - No acute indications for PRINTING GRAY CLOTH TENDER/dialysis. We will keep close eye on Cr trend, volume status, and metabolics to ensure patient still does not need PRINTING GRAY CLOTH TENDER as she ensues intrinsic renal recovery - If needing to diuresis, please administer high dose lasix (ex - 200mg IV bolus) + high dose diuril (ex 500mg IV) - Hold home losartan, meloxicam, and plaquenil Avoid nephrotoxic medications including NSAIDs and contrast. Thanks for letting us participate in the care of this patient. 05/14/2023 Malathi Muro M.D., M.P.H., M.H.Katherine., M.A. PGY-V Nephrology-Hypertension Fellow Page # [phone] [facility] [address] 2nd floor, Explosives Worker [address] [place] [address] * Care Management - Mario Alberto Olmos RN - 05/13/2023 10:23 AM EDT OFFICE OF CARE MANAGEMENT PROGRESS NOTE LOS: Hospital Day 5 days Chart reviewed, care reviewed with primary team and at interdisciplinary rounds. Patient continues to meet inpatient level of critical care related to: sp TAVR. Per note by German Hollins MD at 0745 on 05/12,24 Hour Events/Subjective: Yesterday: --Upgraded from the floor to the CVCC out of concern for cardiogenic shock. Overnight: --Hands were cold, oliguric, lactate uptrending from 3.1 to 4.8. Khushi placed, initial cardiac index of 1.1. Started on dobutamine and vasopressin. Was tachycardic so switched dobutamine to milrinone. Also added norepinephrine. Index improved to 1.8. LFTs elevated, CXR with flash pulmonary edema. Diuresed with 40mg Lasix, then 160mg Lasix, then 6mg bumex + metolazone. Minimal urine output. This AM: --Feeling okay this morning, just warm. Vasoactive & Sedating Medications: Infusions: Continuous Infusions: [SEP Hold] vasopressin 0.08 Units/min (05/12/23 0600) [SEP Hold] milrinone 0.375 mcg/kg/min (05/12/23 0600) [SEP Hold] DOBUTamine Stopped (05/12/23 0120) [SEP Hold] NORepinephrine 6 mcg/min (05/12/23 0642) Decision Maker: Self Functional status prior to admission: Assistive Person Home Environment: Others in the home: alone. Current Living Arrangements: home/apartment/condo. Accessibility Concerns: no concerns. Current Functional Ability: Independent DME used at home: none DME Needed at Discharge: No Patient is insured through: Primary Insurance: MEDICARE Payor: MEDICARE / Plan: MEDICARE PART A & B / Product Type: *No Product type* / Secondary Insurance: [facility] Plan for discharge is: Home w/o Services Outpatient Agency/Support Group Needs: None Agency Referrals: Not Applicable Transportation: family or friend will provide Barriers to discharge: Denies needs/concerns at this time ICU Needs: ICU specific devices / therapies, vasoactive medications, Q1 hour interventions Plan going forward: Care Management will continue to follow and assist with discharge planning and coordination of care as indicated. Anticipated Date of Discharge: 05/17/2023 Mario Alberto Olmos RN * Plan of Care - Macarena Carballo RN - 05/13/2023 6:58 AM EDT OUTCOME EVALUATION NOTE: OUTCOME SUMMARY: Pt feeling much better this shift. A+O. C/o generalized aching, better with tylenol. CI good overnight, up to 3.3 this AM, remains on milrinone. Was able to wean off pressors early in the shift. Urine output has been decreasing overnight, now only 5-10mL/hr. Low filling pressures (CVP 5-8, PAD 9-15) so given albuminx2 without much improvement. Bilateral groin sites with some bruising, no bleeding/hematoma. In SR with frequent PVCs/runs PVCs. Up to chair this AM, was difficult d/t R knee arthritic pain. PLAN MOVING FORWARD: TAVR pathway, wean inotropes, ? Additional fluid, monitor kidney function, PT/OT * Plan of Care - Anju Dominguez RN - 05/12/2023 5:07 PM EDT OUTCOME EVALUATION NOTE: OUTCOME SUMMARY: Pt went for a TAVR at 730. Returned to [facility] at 0945. Was intubated in the blood bank laboratory technologist due to agitation. Maintained bedrest for 5 hours post intervention. Extubated at 1615. Decreasing vaso and levo requirements. Low dose mil continued. Frequent PACs and PVCs. HR in high 90s to low 100s. PLAN MOVING FORWARD: Advanced diet and ambulation as tolerated INDIVIDUALIZED FALL PREVENTION INTERVENTIONS: Patient-specific fall risk factors per assessment: [current deficits]: unfamiliar environment Assistance [level of assistance required for transfers and ambulation]: 2+ Supervision [direct monitoring required during toileting and ADLs]: 2+ Surveillance [continuous indirect monitoring]: surveillance rounding Patient-specific fall prevention interventions for sensory deficits provided, if applicable: [X] N/A CPG GOAL OUTCOME EVALUATION: * OR Attestation - Alirio Hudson MD - 05/12/2023 2:09 PM EDT Attestation: Case Date: 05/12/2023 I performed this procedure without the involvement of a resident. Alirio Hudson MD 05/16/2023 * Brief Op Note - Alirio Hudson MD - 05/12/2023 2:07 PM EDT Brief Operative Note Patient Name: Purnima Thacker : [id number] MR#: [id number] Case Date: 05/12/2023 Surgeon: Surgeon(s) and Role: Panel 1: * Antelmo Sharma MD - Primary * Rebekah Tejeda MD - Fellow - Assisting Panel 2: * Alirio Hudson MD - Primary Panel 3: * Enrique Chua MD - Primary Preoperative diagnosis: /TAVR Postoperative diagnosis: * No post-op diagnosis entered * Procedure(s) (LRB): CARDIAC CATHETERIZATION (N/A) COMBINED RIGHT & LEFT HEART CATH,INC INJ FOR L VENTRICULOGRAPHY (WRVU 5.99) (N/A) @TRANSCATHETER AORTIC VALVE REPLACEMENT (TAVR), PERCUTANEOUS FEMORAL (WRVU 22.47) TRANSESOPHAGEAL ECHO DURING CATH/EP PROCEDURE (N/A) Anesthesia: General Local Findings: stenotic 25mm open valve Complications: none Estimated Blood Loss: * No values recorded between 05/12/2023 7:37 AM and 05/12/2023 9:10 AM * Specimens removed during surgery: None Fluids: Intraprocedure Crystalloid Total None PRBCs: none (See Anesthesia Record/Report for Other Blood Products) Urine Output: (no urine output recorded) Drains: none Disposition: taken directly to the ICU, intubated and in a critical condition. Condition: doing well without problems (Please see the Surgical Encounter Summary for any Implant and Specimen details pertinent to this patient.) Surgical Infection Prevention Bundle Used? No * Brief Op Note - Antelmo Sharma MD - 05/12/2023 9:00 AM EDT Brief post procedure Note: Patient Name: Purnima Thacker : [id number] MR#: [id number] Case Date: 05/12/2023 Operators Surgeon: Surgeon(s) and Role: Panel 1: * Antelmo Sharma MD - Primary * Rebekah Tejeda MD - Fellow - Assisting Panel 2: * Alirio Hudson MD - Primary Panel 3: * Enrique Chua MD - Primary Preoperative diagnosis: Aortic valve stenosis, severe [I35.0] Postoperative diagnosis: Aortic valve stenosis, severe [I35.0] Procedure(s) performed: Ultrasound-guided RFA access, 6F->14F LFA access, 6F LFV access, 6F Right and left-ileofemoral angiography Temporary transvenous pacing wire Selective left coronary artery angiography Left heart catheterization Transcatheter aortic valve replacement, 23 mm Corona Resilia Stenting of left main with 4.0 x 30 mm Resolute Bledsoe Drug Eluting Stent Perclose x1 + Angio-seal 8 Fr x1, RFA Manual pressure, LFA Manual pressure, LFV Endotracheal intubation (performed by cardiac anesthesia) Preliminary findings: Successful right transfemoral TAVR Owhuh-sq-Ksfgu with a 23 mm Lai 3 THV. [...] result with ARNEL-3 flow and no residual dissection or perforation. Recommendation: S/p Ticagrelor 180 mg loading dose was given via OG tube Aspirin 81 mg daily Ticagrelor 90 mg BID The patient tolerated the procedures smoothly and was transferred from the cardiac catheterization lab to the next level of care in stable condition. No evident early complications. Full report to follow. Rebekah Tejeda MD, M.Sc. Structural Heart Disease Fellow Pager :[phone] Antelmo Sharma MD Pager [phone] * Op Note - Alirio Hudson MD - 05/12/2023 7:37 AM EDT Preop Diagnosis: Severe aortic stenosis, symptomatic. Postop Diagnosis: Same. Procedure: Transfemoral TAVR procedure with 23mm valve. Surgeon: Alirio Hudson M.D. Installation And Service Technician: Danny CULP Procedure: The patient was taken to the blood bank laboratory technologist. The patient had monitored anesthesia care. After a time-out was performed, he was prepped and draped in the normal fashion. Both groins were exposed and both arteries were cannulated using a Seldinger technique and were checked angiographicaly. The left femoral vein was used for a temporary pacer. The root pig tail was placed through the L side. Once a root shot was complete, the pacer was tested. Gantry angles were established. Perclose devices were pre-closed in the R fem artery for later use. The eSheath was placed in his right femoral artery and heparin was given, allowing for easy delivery of the valve, which was aligned within his descending aorta,and the valve was put in place. A short rapid pacing run allowed deployment of the valve. Once the valve was deployed, echocardiography images were taken, and we were satisfied with the placement. The sheath was removed. The Percloses that had already been placed were both used to gain hemostasis of his artery. On the contralateral side, an a perclose was used. There was no further bleeding. During the procedure, I was readily available for consultation regarding placement and access to thispatient. I was present for the critical portions, which did not necessarily include closure. All counts were correct. The estimated blood loss was minimal, and fluid was minimal. * Plan of Care - Noreen Deutsch RN - 05/12/2023 5:45 AM EDT OUTCOME EVALUATION NOTE: OUTCOME SUMMARY: Assumed care of patient at 1900 and the patient was clammy, diaphoretic and very cool distally. Art catheter was placed to assess urine output. Unable to get a reliable sp02 pleth, but when readingthe patient was satting in the high 80s. Oxygen ultimately increased to 6L NC. Patient was given 40mg IV lasix without any response. PA catheter and arterial line were placed. Initial cardiac index w as 1L/min. Inotrope and vasopressor therapy started. Marginal improvement in cardiac index with milrinone gtt. Additional 120 mg IV lasix given. Bumex and metolazone given to help with diuresis. See flowsheet for further documentation PLAN MOVING FORWARD: -TAVR this AM CARE PLAN GOAL OUTCOME EVALUATION: Problem: Cardiac Output Decreased (Heart Failure) Goal: Optimal Cardiac Output Outcome: Ongoing (Interventions Implemented as Appropriate) Problem: Dysrhythmia (Heart Failure) Goal: Stable Heart Rate and Rhythm Outcome: Ongoing (Interventions Implemented as Appropriate) Problem: Fluid Imbalance (Heart Failure) Goal: Fluid Balance Outcome: Ongoing (Interventions Implemented as Appropriate) Problem: Respiratory Compromise (Heart Failure) Goal: Effective Oxygenation and Ventilation Outcome: Ongoing (Interventions Implemented as Appropriate) * Plan of Care - Brody Kaplan APRN - 05/11/2023 6:56 PM EDT Images from the original note were not included. TAVR Pre Procedure Note The risks of a transcatheter aortic valve replacement (TAVR) were discussed in detail with the patient and their family who were available at the bedside. These include but are not limited to vascular injury, bleeding, the need for blood transfusion, stroke, valve malpositioning and leak, need for emergent surgery for vascular or cardiac issues, and . We also discussed the inherent nature ofhow a TAVR valve is secured and the concomitant risk for heart block including left bundle branch block and complete heart block requiring permanent pacemaker placement. After all of these risks werereviewed, the patient and their family members had a chance to ask questions. After the questions were answered to their satisfaction, and informed consent document was provided and signed. ASA: 4: Patient with severe systemic disease that is a constant threat to life Mallampati: III: only the base of the uvula can be seen Sedation Plan: moderate (conscious sedation) Assessment and Plan: Proceed with TAVR tomorrow, 05/12/2023, see progress note for further details. Brody Kaplan APRN Structural Heart Disease Pager [phone] * Consult Note - Vinod Juárez PA - 05/11/2023 2:16 PM EDT Cardiac Surgery Consultation Note Purnima Thacker is seen at the request of Dr. Hollins for the evaluation of prosthetic . HPI: Purnima Thacker is a 67 y.o. female with known prosthetic aortic stenosis s/p AVR in [address] Hudson in January and valve in valve TAVR was recommended. She has been experiencing dyspnea on exertion and fatigue for the past several months. These symptoms worsened acutely over the past week and she was admitted several days ago with a drop in EF to 25% from 55%. TAVR CT scans completed today. Cath in October showed mild LAD disease. +Orthopnea, PND, lightheadedness, chest pain, palpitations Denies syncope. 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 05/07/2023 aspirin 81 mg EC tablet Take 81 mg by mouth daily. 05/07/2023 hydrOXYchloroQUINE (Plaquenil) 200 mg tablet Take 1 tablet by mouth daily. 90 tablet 12 Unknown nystatin (MYCOSTATIN) 100,000 unit/gram Powder Apply topically 2 times daily as needed. Unknown cyanocobalamin, Vitamin B-12, (Vitamin B-12) 1,000 mcg tablet Take 500 mcg by mouth daily. Unknown meloxicam (Mobic) 15 mg tablet Take 15 mg by mouth daily. Unknown dilTIAZem CD (Cardizem CD) 180 mg Capsule, Sust. Release 24 hr Take 180 mg by mouth daily. Unknown OneTouch Verio test strips Strip USE DAILY Unknown OneTouch Delica Plus Lancet 33 gauge Misc USE DAILY Unknown metroNIDAZOLE (METROGEL) 0.75 % Gel Apply every other day after washing as needed. (Patient not taking: Reported on 03/18/2023) 45 g 5 Unknown amoxicillin (AMOXIL) 500 mg Tablet Take 2,000 mg by mouth once as needed. Before dental Unknown losartan (Cozaar) 25 mg Tablet Take 25 mg by mouth daily. Unknown acetaminophen (TYLENOL) 500 mg Tablet Take 2 tablets by mouth every 6 hours as needed for Pain (Please take up to 1,000 mg every 6 hours when experiencing pain -05/11.). 30 tablet 5 Unknown spironolactone (ALDACTONE) 25 mg Tablet Take 0.5 tablets by mouth daily. Unknown multivitamin (THERAGRAN) Tablet Take 1 tablet by mouth daily. Unknown Current Meds: Scheduled Meds: spironolactone 12.5 mg Oral Daily aspirin EC 81 mg Oral Daily atorvastatin 10 mg Oral QPM sodium chloride 0.9 % (flush) 5 mL Intravenous BID Continuous Infusions: heparin (porcine) infusion 950 Units/hr (05/10/23 1702) PRN Meds:.heparin (porcine) infusion AND heparin (porcine), sodium chloride 0.9 % (flush), lidocaine, acetaminophen, influenza vaccine (65 yrs +), potassium chloride ER OR potassium chloride ER Allergies: No Known Allergies Physical Exam: BP 96/83 (BP Location (NBP): Right arm) Pulse (!) 118 Temp 36.2 ??C (97.2 ??F) (Oral) Resp 20 Ht 154.9 cm (5' 1) Wt 77.4 kg (170 lb 9.6 oz) SpO2 97% BMI 32.23 kg/m?? General: Sitting up in bed. NAD. Appears stated age. Neuro: Awake and alert. No gross neurologic deficit. Heart: Tachy, regular. 3/6 systolic murmur. Sinus tach on tele. Lungs: Dyspneic on 2L, bibasilar crackles. Abdomen: Soft, NTND. Extremities: Cool, pale, no LE edema. Diagnostics: Lab Results Component Value Date WBC 7.0 05/11/2023 RBC 3.44 (L) 05/11/2023 HGB 11.1 (L) 05/11/2023 HCT 32.7 (L) 05/11/2023 PLATELET 165 05/11/2023 No results for input(s): INR in the last 168 hours. Lab Results Component Value Date NA 134 (L) 05/11/2023 K 4.6 05/11/2023 CL 99 05/11/2023 CO2 14 (L) 05/11/2023 BUN 42 (H) 05/11/2023 CREATININE 1.24 (H) 05/11/2023 CTA A/P: adequate ileofemoral access with mild disease of abdominal aorta EKG: sinus tachycardia, no evidence of conduction disease CATH (11/09/22): Hemodynamics: Right Heart Pressures Resting: Syst Diast EDP a v m RA 7 7 4 RV 32 6 PA 31 17 20 PCW 20 20 15 Hemodynamic Profile: Profile 1 CO 4.85 CI 2.68 TSR 1,254 SVR 1,188 TPR 330 PVR 82 Technique Estimated Kiara Left Heart Pressures Resting: Syst Diast EDP a v m Ao 112 54 76 Oximetry: Location %Sat Location %Sat Main Pulmonary Artery 63.0 Rad Art 95.0 Coronary Angiography: Dominance: Co-dominant Left Main The [...] artery (RCA) was normal, free of disease. TTE: -Left ventricle is severely dilated (LVEDV index [...] suggests worsening stenosis. Mitral regurgitation is similar. Assessment and Plan: 67 y.o. female with symptomatic severe prosthetic that has resulted in a new drop in EF to 25% as well as symptoms c/w acute decompensated HFrEF necessitating transfer to the [facility] this afternoon. She would be better served with valve in valve TAVR. Attending Surgeon. Dr. Hudson. Signed: EKATERINA NAVARRETE 05/11/2023 * Plan of Care - Marilyn Purcell RN - 05/11/2023 2:25 AM EDT Pt A&O X4 AVSS, ST on tele monitoring. Sats stable on 2L n/c. Pt endorsing SOB, relaxation techniques with little effect. Team paged. Sodium nebulizer given as ordered. Pt reports improvement in symptoms. Pt NPO @ midnight pending TAVR. Safety measures in place, call monsalve within reach Problem: Adult Inpatient Plan of Care Goal: Plan of Care Review Outcome: Ongoing (Interventions Implemented as Appropriate) Goal: Patient-Specific Goal (Individualized) Outcome: Ongoing (Interventions Implemented as Appropriate) Goal: Absence of Hospital-Acquired Illness or Injury Outcome: Ongoing (Interventions Implemented as Appropriate) Goal: Optimal Comfort and Wellbeing Outcome: Ongoing (Interventions Implemented as Appropriate) Goal: Readiness for Transition of Care Outcome: Ongoing (Interventions Implemented as Appropriate) Problem: Adjustment to Illness (Heart Failure) Goal: Optimal Coping Outcome: Ongoing (Interventions Implemented as Appropriate) Problem: Cardiac Output Decreased (Heart Failure) Goal: Optimal Cardiac Output Outcome: Ongoing (Interventions Implemented as Appropriate) Problem: Dysrhythmia (Heart Failure) Goal: Stable Heart Rate and Rhythm Outcome: Ongoing (Interventions Implemented as Appropriate) Problem: Fluid Imbalance (Heart Failure) Goal: Fluid Balance Outcome: Ongoing (Interventions Implemented as Appropriate) Problem: Functional Ability Impaired (Heart Failure) Goal: Optimal Functional Ability Outcome: Ongoing (Interventions Implemented as Appropriate) Problem: Oral Intake Inadequate (Heart Failure) Goal: Optimal Nutrition Intake Outcome: Ongoing (Interventions Implemented as Appropriate) Problem: Respiratory Compromise (Heart Failure) Goal: Effective Oxygenation and Ventilation Outcome: Ongoing (Interventions Implemented as Appropriate) Problem: Sleep Disordered Breathing (Heart Failure) Goal: Effective Breathing Pattern During Sleep Outcome: Ongoing (Interventions Implemented as Appropriate) * Plan of Care - Estefani Kent RN - 05/10/2023 5:14 PM EDT OUTCOME EVALUATION NOTE: OUTCOME SUMMARY: Shift started with complaints of chest discomfort and SOB. An EKG was obtained and reviewed by Natalio Schuler MD, showing no changes from baseline EKG. Patient continued to have SOB, Chest RX obtained and started to diuresing with home spirolactone and furosemide 20 mg in AM, and 40 mg in PM. Patient started to report decrease in SOB throughout the day, but was unable to ambulate to the rest room due to dyspnea on excerption. TAVR work-up CT postponed to tomorrow. Patient A&Ox4. Sinus Tachon tele, ranging from 110-130's, see scanned docs. O2 sat 95% on 2L . See flowsheet for I+O. VSS, safety rounding completed, call monsalve in reach. PLAN MOVING FORWARD: Monitor Tele, Improve activity tolerance, pain management, D/C Planning, Needs a new 18 G right IV for CT tomorrow, continue diuresing, monitoring electrolytes, NPO at midnight INDIVIDUALIZED FALL PREVENTION INTERVENTIONS: Patient-specific fall risk factors per assessment: [current deficits]: Unfamiliar surroundings, IV lines, EKG Wires,Generalized Weakness Assistance [level of assistance required for transfers and ambulation]: Stand by assist Supervision [direct monitoring required during toileting and ADLs]: Stand-by Assist Surveillance [continuous indirect monitoring]: Continuous Telemetry, Pulse Oxygen Probe Patient-specific fall prevention interventions for sensory deficits provided, if applicable: Purposeful Rounding, Hourly Rounding, Non-skid shoes or socks when OOB, Use of Assistance Devices, Call Monsalve Within Reach, Room Near Nurses Station, Door Open, Light Adjusted for Specific Tasks, Person Items Within Reach, Bed in Lowest and Locked Position CARE PLAN GOAL OUTCOME EVALUATION: Problem: Adult Inpatient Plan of Care Goal: Plan of Care Review Outcome: Ongoing (Interventions Implemented as Appropriate) Goal: Patient-Specific Goal (Individualized) Outcome: Ongoing (Interventions Implemented as Appropriate) Goal: Absence of Hospital-Acquired Illness or Injury Outcome: Ongoing (Interventions Implemented as Appropriate) Goal: Optimal Comfort and Wellbeing Outcome: Ongoing (Interventions Implemented as Appropriate) Goal: Readiness for Transition of Care Outcome: Ongoing (Interventions Implemented as Appropriate) Problem: Adjustment to Illness (Heart Failure) Goal: Optimal Coping Outcome: Ongoing (Interventions Implemented as Appropriate) Problem: Cardiac Output Decreased (Heart Failure) Goal: Optimal Cardiac Output Outcome: Ongoing (Interventions Implemented as Appropriate) * Consult Note - Antelmo Sharma MD - 05/10/2023 1:31 PM EDT Images from the original note were not included. [facility] [place] [address] [place] [address] STRUCTURAL HEART DISEASE CONSULTATION NOTE PRIMARY CARE PROVIDER: Magdalena Acosta MD REFERRING PROVIDER: Mario Alberto Chin REASON FOR CONSULTATION: Bioprosthetic aortic valve stenosis HISTORY OF PRESENT ILLNESS: Patient ID: Purnima Thacker is a 67 y.o. 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 She is a patient of Dr. Bui, who had been referred for possible TAVR [id number] evaluation. Her primary symptoms are of dyspnea on exertion, fatigue, and more recently orthopnea/PND.This has been going on for several months now, but abruptly worsened in the past week, thus prompting her to be come for more urgent evaluation. At nights, she says she can lie flat in bed, but does have to move from the bed to the chair and back again sporadically. She has had isolated episodes oflightheadedness but no presyncope or syncope. She notes a mid-sternal chest pressure with exertion.ROS otherwise negative. Ms. Thacker is originally from [facility]. 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, 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) Aortic stenosis Chronic idiopathic neutropenia NICOLAS (obstructive sleep apnea) Depressive disorder Essential tremor Obesity Essential hypertension MEDICATIONS: Current Facility-Administered Medications Medication Dose Route Frequency Provider Last Rate Last Admin spironolactone (Aldactone) tablet 12.5 mg 12.5 mg Oral Daily Benjamin Green MD 12.5 mg at 05/10/23 1025 heparin (porcine) 50 units/mL in dextrose 5% 500 mL infusion 0-5,000 Units/hr Intravenous Continuous Klaudia Reid MD 19 mL/hr at 05/10/23 1218 950 Units/hr at 05/10/23 1218 And heparin (porcine) (1,000 units/mL) injection 0-8,000 Units 0-8,000 Units Intravenous BOLUS HEPARIN PP Klaudia Reid MD aspirin EC tablet 81 mg 81 mg Oral Daily Klaudia Reid MD 81 mg at 05/10/23 0926 atorvastatin (Lipitor) tablet 10 mg 10 mg Oral QPM Klaudia Reid MD 10 mg at 05/09/23 1700 sodium chloride 0.9 % (flush) (BD PosiFlush Normal Saline 0.9) flush 5 mL 5 mL Intravenous BID Klaudia Reid MD 5 mL at 05/09/23 2056 sodium chloride 0.9 % (flush) (BD PosiFlush Normal Saline 0.9) flush 5-20 mL 5- 20 mL Intravenous Q1Min PRN Klaudia Reid MD lidocaine (Xylocaine) 1% (10 mg/mL) injection 3 mg 0.3 mL Subcutaneous Once PRN Klaudia Reid MD acetaminophen (Tylenol) tablet 650 mg 650 mg Oral Q4H PRN Klaudia Reid MD influenza vaccine adjuvanted (Adult 65 Yrs +) (FluAD Quad) (PF) IM injection 0.5 mL 0.5 mL Intramuscular Prior to discharge Klaudia Reid MD potassium chloride ER (Klor-Con M) crystal tablet 40 mEq 40 mEq Oral Q4H PRCristina Baker MD Or potassium chloride ER (Klor-Con M) crystal tablet 20 mEq 20 mEq Oral Q4H PRN Cristina Jernigan MD 20 mEq at 05/08/23 2038 FAMILY HISTORY: No family history on file. SOCIAL HISTORY: Social History Socioeconomic History Marital status: Single Spouse name: Not on file Number of children: Not on file Years of education: Not on file Highest education level: Not on file Occupational History Not on file Tobacco Use Smoking status: Never Smokeless tobacco: Never Vaping Use Vaping Use: Never used Substance and Sexual Activity Alcohol use: No Alcohol/week: 0.0 standard drinks Comment: none Drug use: No Sexual activity: Not on file Other Topics Concern Not on file Social History Narrative Not on file Social Determinants of Health Financial Resource Strain: Not on file Food Insecurity: Not on file Transportation Needs: Not on file Physical Activity: Not on file Housing Stability: Not on file REVIEW OF SYSTEMS: 12+ point review of systems was reviewed in detailed and negative apart from the HPI. Objective: Physical Examination: Patient Vitals for the past 24 hrs: Temp Heart Rate From SP02 Pulse Resp BP SpO2 O2 Flow Rate (L/min) O2 Device 05/09/23 1400 -- -- (!) 114 24 96/61 95 % -- -- 05/09/23 1500 -- -- (!) 114 28 -- 94 % -- -- 05/09/23 1600 36.8 ??C (98.2 ??F) (!) 113 bpm (!) 113 23 95/62 95 % -- -- 05/09/23 1700 -- (!) 115 bpm (!) 109 23 -- 94 % -- -- 05/09/23 1800 -- -- (!) 118 19 91/64 -- -- -- 05/09/23 1900 -- (!) 119 bpm (!) 116 (!) 32 -- 91 % -- -- 05/09/23 2000 -- (!) 114 bpm (!) 114 25 90/60 95 % -- -- 05/09/232022 -- -- -- -- -- -- 2 L/min NC 05/09/23 2200 -- -- (!) 109 -- -- 95 % -- -- 05/09/23 2300 -- -- (!) 107 -- -- 90 % -- -- 05/09/23 2336 36.6 ??C (97.9 ??F) -- -- 20 105/73 90 % 2 L/min NC 05/10/23 0000 -- -- (!) 107 -- -- 90 % -- -- 05/10/23 0100 -- -- (!) 114 -- -- 93 % -- -- 05/10/23 0200 -- -- 100 -- -- 93 % 2 L/min NC 05/10/23 0300 -- -- (!) 107 -- -- 90 % -- -- 05/10/23 0400 36.7 ??C (98.1 ??F) -- (!) 127 22 91/75 90 % 2 L/min NC 05/10/23 0740 37.1 ??C (98.7 ??F) -- (!) 124 20 112/66 95 % 2 L/min NC 05/10/23 1024 -- -- (!) 124 -- 109/60 95 % -- -- 05/10/23 1242 36.9 ??C (98.4 ??F) -- (!) 120 20 96/63 94 % 3 L/min NC General: Pleasant, older frail female, appears older than stated age, no acute distress HEENT: Normocephalic, atraumatic, benign NECK: Supple, no masses, FROM CV: Normal rate, Rhythm: Regular rhythm, II/ crescendo-decrescendo murmur best heard at the USBs,diminutive S2, no rubs, no ventricular heaves RESP: CTAB, moving air well, symmetric chest excursion GI: Soft, nd, nttp EXT: No cyanosis/clubbing, trace edema, preserved distal pulses NEURO: No gross focal deficits DERM: No rash, wwp 10.2 134 102 30 3.7 6.4 9.3 5.2 H/H 151 4.1 20 .9 -- .5 -- 30.2 24 14 -- 70 77.1N (.4B) / 14L / 7.7M / .4E / .4B Recent Results (from the past 24 hour(s)) Lactate, whole blood, send to lab ([facility] Result Value Ref Range Lactate WB 1.8 0.5 - 2.2 mmol/L Heparin (unfractionated) Level Result Value Ref Range Heparin UFH Level 0.37 IU/mL TTE 05/08/23 Interpretation Summary -Left ventricle is [...] in Anterolateral leads Confirmed by MD Harshil, Enrique Bell ([id number]) on 05/10/2023 8:11:46 AM Assessment and Plan: Patient ID: Purnima Thacker is a 67 y.o. 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 Bioprosthetic aortic valve stenosis TTE imaging reviewed independently in the context of her presenting illness. Primary mechanism for is stenosis, and she now has a decrement in LV systolic function. NYHA Class IV, CCS Class III -meets class I indication for treatment. Will need to alert Dr. Hudson of her inpatient status, kd primary cardiac surgeon. Based on recent clinic visit, tentative plan had been for TAVR JANET issa ferrera given her chronological age. Nonetheless, will move forward with other diagnostic testing including cardiac and abdomen/pelvis CTA and possible catheterization. Once her testing is complete and seen by CTS, will coformulate a plan and timing for treatment of her valve. Antelmo Sharma MD Structural Heart Disease Pager [phone] * Plan of Care - Sarahi Nice RN - 05/10/2023 3:55 AM Bin: VALDO Note and Care Plan Sarahi Nice RN assumed care of pt at time of their arrival to room 362 from [facility]. Pt voices shortness of breath at time of care assumption. With application of O2 and relaxation techniques pt was able to regain normal breathing pattern. Shift Note: Pt unable to tolerate laying below 35 degree angle. Pt showed signs and symptoms of anxiety during assumed care, RN offered to contact MD to attain medication for anxiety management but pt refused. RN attempted to address pt's anxiety with non pharmaceutical techniques. Visit Vitals BP 105/73 (BP Location (NBP): Left arm, Patient Position: Lying) Pulse 100 Temp 36.6 ??C (97.9 ??F) (Oral) Resp 20 Ht 154.9 cm (5' 1) Wt 78.4 kg (172 lb 14.4 oz) SpO2 93% BMI 32.67 kg/m?? Care Plan: Problem: Adult Inpatient Plan of Care Goal: Plan of Care Review Outcome: Ongoing (Interventions Implemented as Appropriate) Flowsheets (Taken 05/10/2023 0354) Plan of Care Reviewed With: patient Progress: improving Goal: Patient-Specific Goal (Individualized) Outcome: Ongoing (Interventions Implemented as Appropriate) Flowsheets (Taken 05/08/2023 1116 by Emily Lucero RN) Anxieties, Fears or Concerns: none Individualized Care Needs: none Patient-Specific Goals (Include Timeframe): none Goal: Absence of Hospital-Acquired Illness or Injury Outcome: Ongoing (Interventions Implemented as Appropriate) Intervention: Identify and Manage Fall Risk Flowsheets (Taken 05/10/2023 0200) Safety Promotion/Fall Prevention: safety round/check completed Intervention: Prevent Skin Injury Flowsheets (Taken 05/10/2023 0200) Body Position: position changed independently Intervention: Prevent and Manage VTE (Venous Thromboembolism) Risk Flowsheets (Taken 05/09/2023 2336) VTE Prevention/Management: anticoagulant therapy Intervention: Prevent Infection Flowsheets (Taken 05/10/2023 0200) Infection Prevention: environmental surveillance performed equipment surfaces disinfected hand hygiene promoted rest/sleep promoted single patient room provided personal protective equipment utilized Goal: Optimal Comfort and Wellbeing Outcome: Ongoing (Interventions Implemented as Appropriate) Intervention: Provide Person-Centered Care Flowsheets (Taken 05/09/20232335) Trust Relationship/Rapport: care explained choices provided emotional support provided questions answered reassurance provided thoughts/feelings acknowledged Goal: Readiness for Transition of Care Outcome: Ongoing (Interventions Implemented as Appropriate) Intervention: Mutually Develop Transition Plan Flowsheets (Taken 05/09/2023 1539 by Alie Bradshaw RN) Equipment Currently Used at Home: none Current Outpatient/Agency/Support Group: none Transportation Anticipated: family or friend will provide Transportation: no concerns Concerns to be Addressed: no discharge needs identified Patient/Family Anticipated Services at Transition: none Patient/Family Anticipates Transition to: home alone Readmission Within the Last 30 Days: no previous admission in last 30 days Problem: Adjustment to Illness (Heart Failure) Goal: Optimal Coping Outcome: Ongoing (Interventions Implemented as Appropriate) Intervention: Support Psychosocial Response Flowsheets Taken 05/09/20232335 by Sarahi Nice RN Supportive Measures: active listening utilized Taken 05/08/20231999 by Alivia Kauffman circuit court clerk/Support System Care: self-care encouraged support provided Problem: Cardiac Output Decreased (Heart Failure) Goal: Optimal Cardiac Output Outcome: Ongoing (Interventions Implemented as Appropriate) Intervention: Optimize Cardiac Output Flowsheets (Taken 05/09/20232335) Environmental Support: calm environment promoted Problem: Dysrhythmia (Heart Failure) Goal: Stable Heart Rate and Rhythm Outcome: Ongoing (Interventions Implemented as Appropriate) Problem: Fluid Imbalance (Heart Failure) Goal: Fluid Balance Outcome: Ongoing (Interventions Implemented as Appropriate) Problem: Functional Ability Impaired (Heart Failure) Goal: Optimal Functional Ability Outcome: Ongoing (Interventions Implemented as Appropriate) Intervention: Optimize Functional Ability Flowsheets (Taken 05/10/2023 0200) Activity Management: activity encouraged Self-Care Promotion: BADL personal objects within reach Problem: Respiratory Compromise (Heart Failure) Goal: Effective Oxygenation and Ventilation Outcome: Ongoing (Interventions Implemented as Appropriate) Intervention: Promote Airway Secretion Clearance Flowsheets (Taken 05/09/20232335) Breathing Techniques/Airway Clearance: deep/controlled cough encouraged Cough And Deep Breathing: done independently per patient Intervention: Optimize Oxygenation and Ventilation Flowsheets (Taken 05/09/20232335) Airway/Ventilation Management: airway patency maintained Problem: Sleep Disordered Breathing (Heart Failure) Goal: Effective Breathing Pattern During Sleep Outcome: Ongoing (Interventions Implemented as Appropriate) Intervention: Monitor and Manage Obstructive Sleep Apnea Flowsheets (Taken 05/09/2023 7761) NPPV/CPAP Maintenance: home PAP equipment/settings used * Initial Assessments - Alie Bradshaw RN - 05/09/2023 3:42 PM EDT Office of Care Management Initial Assessment Alie Bradshaw RN reviewed record and discussed patient with Care Team. Source of Information: Team, bedside nurse, medical record, and Patient Introduced self/reviewed role; services accepted. Admitted From: Transfer from another hospital Location: admitted from [facility] Reason for Hospitalization: Critical aortic stenosis, causing symptoms Past medical History: Past Medical History: Diagnosis Date Anemia Hospitalizations Within the Past 30 Days: no previous admission in last 30 days Current Decision-Making Capacity: Self If AD's have not been completed the following surrogate would be surrogate decision maker per [place] surrogate decision making law. (Only good for 180 days) Any patient receiving care in [place] must abide by [place] law. The hierarchy for surrogate decision making is: (a) Patient???s spouse or civil union partner unless there is a divorce proceeding, separation agreement, or restraining order limiting that person???s relationship with the patient. (b) Any adult son or daughter of the patient. (c) Either parent of the patient. (d) Any adult brother or sister of the patient. (e) Any adult grandchild of the patient. (f) Any grandparent of the patient. (g) Any adult aunt, uncle, niece, or nephew of the patient. (h) A close friend of the patient. (i) The agent with financial power of logger or a conservator appointed in accordance with RSA 464-A. (j) The guardian of the patient???s estate. Advance Care Planning: Attempt Cardiopulmonary Resuscitation - Inpatient <no information> -Advanced Directive: No, declines Current Coping/Education/Information Needs: denies Current Functional Ability: assistive person Functional Status Prior to Admission: Independent Home Environment: Others in the home: alone. Current Living Arrangements: home/apartment/condo. Accessibility Concerns:no concerns. Resource / Environmental Concerns: Resource/Environmental Concerns: none Current DME: none Home Address confirmed as: [address] [place] [facility] [place] [address] Social & Family Supports: All names listed below confirmed with patient as current and correct Extended Emergency Contact Information Primary Emergency Contact: Martha Thacker Relation: Friend Secondary Emergency Contact: Giorgio Thacker Mobile Relation: Sibling Current Care Provided by: self Provides Primary Care For: no one Caregiver if needed: sibling(s) Quality of Family relationships: helpful, involved Community Resources being provided currently: none Behavioral Health History: denies Substance Use/Abuse listed: Social History Tobacco Use Smoking Status Never Smokeless Tobacco Never In the past year have you used an illegal drug or used a prescription medication for non-medical reasons?: No 0 No problems reported 1-2 Low level 3-5 Moderate level 6-8 Substantial level 9- 10 Severe level In the past year have you had 4 or more drinks a day containing alcohol?: No 0 to 7 points: Low risk 8 to 15 points: Medium risk 16 to 19 points: High risk 20 to 40 points: Addiction likely Other Pertinent/Service Specific Information: denies Health/Prescription Coverage: Primary Insurance: MEDICARE Payor: MEDICARE / Plan: MEDICARE PART A & B / Product Type: *No Product type* / Secondary Insurance: [employer] [facility] [place] ONLY if patient has Medicare A&B - Does this patient have secondary insurance?: Yes ; Prescription Coverage: Yes Preferred Pharmacy: updated to [facility] in [facility] [place] Status: Patient is a : No Primary Care Provider confirmed: Magdalena Acosta MD [phone] Patient/Caregiver Goals of Treatment: Potential Needs for Transition of Care: none Agency Referrals: Not Applicable Transportation: no concerns Transportation Anticipated: family or friend will provide Concerns to be Addressed: no discharge needs identified Assessment: Patient is admitted to cardiology service for Symptomatic severe aortic stenosis with low ejection fraction [I35.0]. Patient lives alone on the first floor of a 2 story home with 2 QUOC. Patient is independent with ADL's at baseline and drives herself for transportation needs. Plan: plan pending patient's hospital course. Patient continues to require ICU level of care. Plan for patient to discharge home via private car when medically ready. A member of the Care Management team will continue to monitor progress, follow for continuity of care and assist with transition of care planning. Alie Bradshaw RN, Pager-[phone] * Plan of Care - Emily Lucero RN - 05/08/2023 2:54 PM EDT OUTCOME EVALUATION NOTE: OUTCOME SUMMARY: Pt arrived from [facility]. A&O, no c/o pain or SOB. Heparin gtt continued and maintained per protocol (see eMAR). 40mg IVP lasix given X1 with good effect (see flowsheets and eMAR). PLAN MOVING FORWARD: CT surg consult for TAVR w/u INDIVIDUALIZED FALL PREVENTION INTERVENTIONS: Patient-specific fall risk factors per assessment: [current deficits]: unfamiliar environment, lines/wires Assistance [level of assistance required for transfers and ambulation]: 1A Supervision [direct monitoring required during toileting and ADLs]: hands on Surveillance [continuous indirect monitoring]: tele, pulse ox Patient-specific fall prevention interventions for sensory deficits provided, if applicable: call monsalve in reach, nonskid socks when OOB, purposeful rounding performed CPG GOAL OUTCOME EVALUATION: documented in this encounter Plan of Treatment Upcoming Encounters Date Type Department Care Team (Late st Contact Info) Description 02/22/2024 4:15 PM EDT Office Visit Dermatology at [address] [place] [id number] Marek Bonilla MD [address] [place] [address] 06/05/2024 11:30 AM EST Office [place] [phone] Magdalena Peralta MD [facility] [place] [address] Scheduled Referrals Name Type Priority Associated Diagnoses Orde r Schedule Referral to Cardiac Rehab Outpatient Referral Routine S/P TAVR (transcatheter aortic valve replacement) Ordered: 05/22/2023 Referral to Home Health Outpatient Referral Routine S/P TAVR (transcatheter aortic valve replacement) Ordered: 05/22/2023 documented as of this encounter Procedures Procedure Name Priority Date/Time Associated Diagnosis Comments BASIC METABOLIC PANEL (NON-FASTING) Routine 05/22/2023 3:57 AM EDT BASIC METABOLIC PANEL (NON-FASTING) Routine 05/21/2023 5:06 AM EDT LAVENDER TUBE HOLD Routine 05/20/2023 2: 52 AM EDT HC POTASSIUM Routine 05/20/2023 2:52 AM EDT BASIC METABOLIC PANEL (NON-FASTING) Routine 05/20/2023 2:52 AM EDT XR CHEST PA AND LATERAL Routine 05/19/20 11:01 AM EDT BASIC METABOLIC PANEL (NON-FASTING) Routine 05/19/2023 5:49 AM EDT IR CHEST TUBE PLACEMENT RIGHT Routine 05/18/2023 4:36 PM EDT BASIC METABOLIC PANEL (NON-FASTING) Routine 05/18/2023 2:54 AM EDT XR CHEST PA AND LATERAL Routine 05/17/20 9:29 AM EDT COMPREHENSIVE METABOLIC PANEL (NON-FASTING) Routine 05/17/2023 4:35 AM EDT HC POTASSIUM Routine 05/16/2023 11:15 PM EDT HC MAGNESIUM, SERUM Timed 05/16/2023 5 :22 PM EDT BASIC METABOLIC PANEL (NON-FASTING) Timed 05/16/2023 5:22 PM EDT HC POTASSIUM Routine 05/16/2023 11:43 AM EDT HC PARATHYROID HORMONE(PTH INTACT Routine 05/16/2023 4:41 AM EDT HC VITAMIN D TOTAL-25 HYDROXY Routine 05/16/2023 4:41 AM EDT HC FERRITIN, SERUM Routine 05/16/2023 4: 41 AM EDT BLOOD GAS VENOUS ([facility]) Timed 4:22 AM EDT HEMOGRAM Routine 05/16/2023 4:20 AM EDT DIFFERENTIAL, AUTOMATED Routine 05/16/20 4:20 AM EDT HC IRON BINDING CAPACITY Routine 05/16/2023 4:20 AM EDT HC CBC,PLT & AUTO DIFF Routine 4:20 AM EDT BASIC METABOLIC PANEL (NON-FASTING) Routine 05/16/2023 4:20 AM EDT HC HEMOGRAM Routine 05/15/2023 12:50 AM EDT BASIC METABOLIC PANEL (NON-FASTING) Routine 05/15/2023 12:50 AM EDT BLOOD GAS 2 VENOUS Routine 05/15/2023 12 :49 AM EDT US RETROPERITONEAL COMPLETE Routine 05/14/2023 3:53 PM EDT HC URIC ACID, SERUM Routine 05/14/2023 3 :17 PM EDT HC OSMOLALITY Routine 05/14/2023 3:17 PM EDT HC CREATINE PHOSPHOKINASE, SERUM Routine 05/14/2023 3:17 PM EDT HEMOGRAM Routine 05/14/2023 1:10 AM EDT DIFFERENTIAL, AUTOMATED Routine 05/14/20 1:10 AM EDT HC CBC,PLT & AUTO DIFF Routine 1:10 AM EDT COMPREHENSIVE METABOLIC PANEL (NON-FASTING) Routine 05/14/2023 1:10 AM EDT HC PARTIAL THROMBOPLASTIN TIME Routine 05/13/2023 10:15 AM EDT HC PROTHROMBIN TIME Routine 05/13/2023 1 0:15 AM EDT EKG 12-LEAD Routine 05/13/2023 9:22 AM EDT S/P TAVR (transcatheter aortic valve replacement) HEMOGRAM Routine 05/13/2023 1:15 AM EDT DIFFERENTIAL, AUTOMATED Routine 05/13/20 1:15 AM EDT HC CBC,PLT & AUTO DIFF Routine 1:15 AM EDT HEPATIC FUNCTION PANEL Routine 1:15 AM EDT BASIC METABOLIC PANEL (NON-FASTING) Routine 05/13/2023 1:15 AM EDT EXTUBATE Routine 05/12/2023 4:03 PM EDT BLOOD GAS 2 ARTERIAL Routine 05/12/2023 3:57 PM EDT COOX2 Routine 05/12/2023 2:25 PM EDT BLOOD GAS 2 ARTERIAL Routine 05/12/2023 2:23 PM EDT HC TROPONIN T STAT 05/12/2023 2:05 PM EDT HC HEMOGLOBIN, BLOOD Routine 05/12/2023 2:05 PM EDT HC POTASSIUM Routine 05/12/2023 2:05 PM EDT BLOOD GAS 2 ARTERIAL Routine 05/12/2023 11:05 AM EDT BLOOD GAS 2 ARTERIAL Routine 05/12/2023 10:14 AM EDT EKG 12-LEAD STAT 05/12/2023 10:10 AM EDT S/P TAVR (transcatheter aortic valve replacement) XR CHEST ONE VIEW STAT 05/12/2023 9:5 3 AM EDT ECHO LMTD W/O CONTRAST W LMTD SPEC DOPP COLOR DOPP Routine 05/12/2023 9:23 AM EDT Aortic valve stenosis, etiology of cardiac valve disease unspecified CARDIAC CATHETERIZATION Routine 05/12/20 9:10 AM EDT Aortic valve stenosis, etiology of cardiac valve disease unspecified POINT OF CARE BLOOD GAS HISTORICAL Routine 05/12/2023 8:50 AM EDT POINT OF CARE BLOOD GAS HISTORICAL Routine 05/12/2023 8:10 AM EDT TRANSESOPHAGEAL ECHO DURING CATH/EP PROCEDURE 05/12/2023 7:37 AM EDT Aortic valve stenosis, etiology of cardiac valve disease unspecified Combined Right & Left Heart Cath W/Inj L Ventriculography, Img S&I ([id number]) 05/12/2023 7:37 AM EDT Aortic valve stenosis, etiology of cardiac valve disease unspecified HC L-LACTATE Routine 05/12/2023 7:00 AM EDT COMPREHENSIVE METABOLIC PANEL (NON-FASTING) Routine 05/12/2023 6:00 AM EDT @TRANSCATHETER AORTIC VALVE REPLACEMENT (TAVR), PERCUTANEOUS FEMORAL Routine 05/12/2023 5:53 AM EDT Aortic valve stenosis, etiology of cardiac valve disease unspecified COOX2 Routine 05/12/2023 5:08 AM EDT COOX2 Routine 05/12/2023 3:21 AM EDT BLOOD GAS 2 ARTERIAL Routine 05/12/2023 3:18 AM EDT COOX2 Routine 05/12/2023 1:14 AM EDT BLOOD GAS 2 ARTERIAL Routine 05/12/2023 1:06 AM EDT HEMOGRAM Routine 05/12/2023 1:05 AM EDT DIFFERENTIAL, AUTOMATED Routine 05/12/20 1:05 AM EDT HC CBC,PLT & AUTO DIFF Routine 1:05 AM EDT COMPREHENSIVE METABOLIC PANEL (NON-FASTING) Routine 05/12/2023 1:05 AM EDT XR CHEST ONE VIEW Routine 05/12/2023 1:0 0 AM EDT COOX2 Routine 05/12/2023 12:30 AM EDT XR CHEST ONE VIEW STAT 05/11/2023 11: 45 PM EDT HC L-LACTATE Routine 05/11/2023 7:40 PM EDT URINALYSIS MICROSCOPIC EXAM Routine 05/11/2023 7:22 PM EDT URINALYSIS WITH REFLEX CULTURE Routine 05/11/2023 7:22 PM EDT URINE CULTURE Routine 05/11/2023 7:22 PM EDT HC PROBNP Routine 05/11/2023 7:11 PM EDT HC VENIPUNCTURE Routine 05/11/2023 2:[address] HEART FOR FUNCTION (NON-CORONARY) W CONTRAST Routine 05/11/2023 10:[address] ANGIOGRAM ABDOMEN AND PELVIS W CONTRAST Routine 05/11/2023 10:41 AM EDT HC L-LACTATE Routine 05/11/2023 9:29 AM EDT HC UNFRACTIONATED HEPARIN (HEP UFH) Timed 05/11/2023 4:42 AM EDT HEMOGRAM Routine 05/11/2023 4:42 AM EDT DIFFERENTIAL, AUTOMATED Routine 05/11/20 4:42 AM EDT HC VENIPUNCTURE Routine 05/11/2023 4:42 AM EDT COMPREHENSIVE METABOLIC PANEL (NON-FASTING) Routine 05/11/2023 4:42 AM EDT EKG 12-LEAD Routine 05/10/2023 1:16 PM EDT Symptomatic severe aortic stenosis with low ejection fraction HC L-LACTATE Routine 05/10/2023 11:52 AM EDT XR CHEST ONE VIEW Routine 05/10/2023 11: 16 AM EDT EKG 12-LEAD STAT 05/10/2023 7:59 AM EDT Aortic valve stenosis, etiology of cardiac valve disease unspecified HC UNFRACTIONATED HEPARIN (HEP UFH) Timed 05/10/2023 2:28 AM EDT HEMOGRAM Routine 05/10/2023 2:28 AM EDT DIFFERENTIAL, AUTOMATED Routine 05/10/20 2:28 AM EDT HC CBC,PLT & AUTO DIFF Routine 2:28 AM EDT COMPREHENSIVE METABOLIC PANEL (NON-FASTING) Routine 05/10/2023 2:28 AM EDT HC UNFRACTIONATED HEPARIN (HEP UFH) Timed 05/09/2023 4:00 AM EDT HEMOGRAM Routine 05/09/2023 4:00 AM EDT DIFFERENTIAL, AUTOMATED Routine 05/09/20 4:00 AM EDT HC CBC,PLT & AUTO DIFF Routine 4:00 AM EDT COMPREHENSIVE METABOLIC PANEL (NON-FASTING) Routine 05/09/2023 4:00 AM EDT HC UNFRACTIONATED HEPARIN (HEP UFH) Timed 05/08/2023 4:00 PM EDT HC POTASSIUM Routine 05/08/2023 4:00 PM EDT PRO-BRAIN NATRIURETIC PEPTIDE Routine 05/08/2023 4:00 PM EDT HC MAGNESIUM, SERUM Routine 05/08/2023 4 :00 PM EDT EKG 12-LEAD STAT 05/08/2023 3:51 PM EDT Aortic valve stenosis, etiology of cardiac valve disease unspecified HEMOGRAM Routine 05/08/2023 11:38 AM EDT DIFFERENTIAL, AUTOMATED Routine 05/08/20 11:38 AM EDT HC CBC,PLT & AUTO DIFF Routine 11:38 AM EDT HC THYROID STIMULATING HORMONE, SERUM Routine 05/08/2023 11:38 AM EDT HC PHOSPHORUS, SERUM Routine 05/08/2023 11:38 AM EDT HC MAGNESIUM, SERUM Routine 05/08/2023 1 1:38 AM EDT BASIC METABOLIC PANEL (NON-FASTING) Routine 05/08/2023 11:38 AM EDT ECHO COMPLETE Routine 05/08/2023 11:02 AM EDT Aortic valve stenosis, etiology of cardiac valve disease unspecified HC UNFRACTIONATED HEPARIN (HEP UFH) Routine 05/08/2023 9:45 AM EDT documented in this encounter Results * ECHO LMTD W/O CONTRAST W LMTD SPEC DOPP COLOR DOPP (07/08/2023 12:15 PM EST) EF 20 [employer] Anatomical Region Laterality Modality Cardiac Other 07/08/2023 10:3 1 AM EST Narrative 07/08/2023 12:26 PM EST 1 [place] [id number] ? Echocardiogram Report Name: PURNIMA THACKER ?Study Date: 07/08/2023 10:31 AMBP: 118/60 mmHg ? Patient Location: : 1955 ? Height: 155 cm ? Account: [id number] Age: 67 yrs ? Weight: 74 kg Gender: Female ?BSA: 1.7 m2 Ordering Physician: ALIRIO HUDSON Referring Physician: VINOD JUÁREZ Performed By: Felicia Norris RODOLFO Reason For Study: S/P TAVR Exam Location: [facility]. Interpretation Summary Left ventricular systolic function is [...] no significant change (post-procedure). Procedure Limited - 16969. Doppler - 33466. Color Doppler - 92383. Satisfactory quality. This study is limited because [...] valve mean: 9.7 mmHg MV E max wero: 75.1 cm/sec MV A max wero: 102.2 cm/sec MV E/A: 0.73 MV dec time: 0.21 sec Lat Peak E' Wero: 3.4 cm/sec E/ e' (lat): 21.9 Med Peak E' Wero: 4.1 cm/sec E/e' (med): 18.2 E/e' Average: [...] Note Lee Kincaid MD - 07/08/2023 1 [place] [id number] Echocardiogram Report Name: PURNIMA THACKER Study Date: 0:31 AMBP: 118/60 mmHg Patient Location: : 1955 Height: 155 cm Account: [id number] Age: 67 yrs Weight: 74 kg Gender: Female BSA: 1.7 m2 Ordering Physician: ALIRIO HUDSON Referring Physician: VINOD JUÁREZ Performed By: Felicia Norris RDCS Reason For Study: S/P TAVR Exam Location: [facility]. Interpretation Summary Left ventricular systolic function is [...] is nosignificant change (post-procedure). Procedure Limited - 75600. Doppler - 61259. Color Doppler - 85173. Satisfactoryquality. This study is limited because of [...] valve mean: 9.7 mmHg MV E max wero: 75.1 cm/sec MV A max wero: 102.2 cm/sec MV E/A: 0.73 MV dec time: 0.21 sec Lat Peak E' Wero: 3.4 cm/sec E/ e' (lat): 21.9 Med Peak E' Wero: 4.1 cm/sec E/e' (med): 18.2 E/e' Average: 20.1 GEOVANNA(I,D): 1.4 cm2 Dimensionless index Aov: 0.39 I WMSI = 2.00 % Normal = 0 SegmentsSize X - Cannot 2 - 4 - 1-2small Interpret 1 - Normal Hypokinetic 3 - Akinetic Dyskinetic 3-5moderate 5 - 6-14large Aneurysmal 15-16diffuse Alirio Hudson MD ECHO ORDERABLES * (ABNORMAL) Comprehensive metabolic panel (non-fasting) (07/08/2023 [...] Resulting Agency Comment Spec In Lab Alirio Hudson MD CHEMISTRY ORDERABLE S [facility] [place] [address] * (ABNORMAL) Basic Metabolic Panel (non-fasting) (05/22/2023 3:57 AM EDT) Glucose Lvl 88 65 - 199 mg/dL [facility] Comment:Diabetes: >=200 mg/d L plus symptoms BUN 21(H) 8 - 18 mg/dL [facility] Creatinine 0.69(L) 0.70 - 1.20 mg/dL [facility] Sodium 136 135 - 145 mmol/L [facility] Potassium 3.6 3.5 - 5.0 mmol/L [facility] Comment: Please note: ??Patients with WBC >100,000 may have falsely elevated Potassium levels. ??For accurate Potassium quantification in these patients send serum separator tube (gold top) for subsequent determinations. ??Contact the Clinical Chemistry Laboratory if there are any questions. Chloride 102 98 - 107 mmol/L [facility] CO2 23 22 - 31 mmol/L [facility] Anion Gap 11 5 - 15 mmol/L [facility] Calcium 8.6 8.5 - 10.5 mg/dL [facility] Estimated GFR 95 >=60 mL/min/1. 73 m?? [facility] [...] and symptoms in addition to eGFR. Blood 05/22/2023 3:57 AM EDT 05/22/2023 4:11 AM EDT Narrative Resulting Agency Comment Spec In Lab Mara Serrano APRN CHEMISTRY ORDERABL ES [facility] [place] [address] * (ABNORMAL) Basic Metabolic Panel (non-fasting) (05/21/2023 5:06 AM EDT) Glucose Lvl 87 65 - 199 mg/dL [facility] Comment:Diabetes: >=200 mg/d L plus symptoms BUN 25(H) 8 - 18 mg/dL [facility] Creatinine 0.84 0.70 - 1.20 mg/dL [facility] Sodium 136 135 - 145 mmol/L [facility] Potassium 3.6 3.5 - 5.0 mmol/L [facility] Comment: Please note: ??Patients with WBC >100,000 may have falsely elevated Potassium levels. ??For accurate Potassium quantification in these patients send serum separator tube (gold top) for subsequent determinations. ??Contact the Clinical Chemistry Laboratory if there are any questions. Chloride 102 98 - 107 mmol/L [facility] CO2 26 22 - 31 mmol/L [facility] Anion Gap 8 5 - 15 mmol/L [facility] Calcium 8.9 8.5 - 10.5 mg/dL [facility] Estimated GFR 76 >=60 mL/min/1. 73 m?? [facility] [...] and symptoms in addition to eGFR. Blood 05/21/2023 5:06 AM EDT 05/21/2023 5:39 AM EDT Narrative Resulting Agency Comment Spec In Lab Mara Serrano ANURAG CHEMISTRY ORDERABL ES [facility] [place] [address] * Lavender Tube HOLD (05/20/2023 2:52 AM EDT) Pathologist [facility] Lavender Hold Sample in lab. [facility] Blood Venous Draw / Unknown 05/20/2023 2:52 AM EDT 05/20/2023 3:04 AM EDT Mara Serrano APRN HEMATOLOGY ORDERAB LES [facility] [place] [address] * (ABNORMAL) Basic Metabolic Panel (non-fasting) (05/20/2023 2:52 AM EDT) [facility] [address] Glucose Lvl 152 65 - 199 mg/dL [facility] Comment:Diabetes: >=200 mg/d L plus symptoms BUN 33(H) 8 - 18 mg/dL [facility] Creatinine 0.82 0.70 - 1.20 mg/dL [facility] Sodium 137 135 - 145 mmol/L [facility] Potassium 3.7 3.5 - 5.0 mmol/L [facility] Comment: Please note: ??Patients with WBC >100,000 may have falsely elevated Potassium levels. ??For accurate Potassium quantification in these patients send serum separator tube (gold top) for subsequent determinations. ??Contact the Clinical Chemistry Laboratory if there are any questions. Chloride 99 98 - 107 mmol/L [facility] CO2 22 22 - 31 mmol/L [facility] Anion Gap 16(H) 5 - 15 mmol/L [facility] Calcium 9.0 8.5 - 10.5 mg/dL [facility] Estimated GFR 78 >=60 mL/min/1. 73 m?? [facility] [...] and symptoms in addition to eGFR. Blood 05/20/2023 2:52 AM EDT 05/20/2023 3:03 AM EDT Narrative Resulting Agency Comment Spec In Lab Mara Thomasfield BUSINESS SERVICES ANALYST CHEMISTRY ORDERABL ES Performing Organization Address [facility] Phone Number [facility] [place] [address] * (ABNORMAL) Potassium (05/20/2023 2:52 AM EDT) [facility] [address] Potassium 3.4(L) 3.5 - 5.0 mmol/L [facility] Comment: Please note: ??Patients with WBC >100,000 may have falsely elevated Potassium levels. ??For accurate Potassium quantification in these patients send serum separator tube (gold top) for subsequent determinations. ??Contact the Clinical Chemistry Laboratory if there are any questions. Blood 05/20/2023 2:52 AM EDT 05/20/2023 3:03 AM EDT Narrative Resulting Agency Comment Spec In Lab Mara Serrano APRN CHEMISTRY ORDERABL ES Performing Organization Address [facility] Phone Number [facility] [place] [address] * XR Chest PA & Lateral (Generic) (05/19/2023 11:01 AM EDT) Anatomical Region Laterality Modality Chest N/A Digital Radiogra phy Impressions 05/19/2023 2:19 PM EDT Improving bilateral effusions, moderate residual on the left, minimal on the right. ??No pneumothorax. I have personally reviewed the image(s) and the resident's interpretation and agree with the findings, Chyna Johnson MD at 05/19/2023 2:19 PM Thank you for letting us participate in the care of this patient. ??If you are a health care provider and have any questions regarding this report, please contact the number below. ??For patients who have questions please contact the health memory care program resident that requested your imaging first. ? Electronically signed by: Chyna Johnson MD, [facility] ??([phone]), at 05/19/2023 2:19 PM Narrative 05/19/2023 2:19 PM EDT EXAMINATION: XR CHEST PA AND LATERAL (GENERIC) CLINICAL HISTORY: s/p right pigtail removal eval effusion vs pneumo TECHNIQUE: PA and lateral views of the chest COMPARISON: Chest radiograph 05/17/2023 FINDINGS: Status post median sternotomy and aortic valve replacement. Right pleural effusion has significantly improved, incompletely resolved. Left pleural effusion is similar to slightly smaller. No pneumothorax. Bibasilar atelectasis. Unchanged cardiomediastinal silhouette. Unchanged cholecystectomy clips. Procedure Note Chyna Johnson MD - 05/19/2023 EXAMINATION: XR CHEST PA AND LATERAL (GENERIC) CLINICAL HISTORY: s/p right pigtail removal eval effusion vs pneumo TECHNIQUE: PA and lateral views of the chest COMPARISON: Chest radiograph 05/17/2023 FINDINGS: Status post median sternotomy and aortic valve replacement. Right pleural effusion has significantly improved, incompletely resolved.Left pleural effusion is similar to slightly smaller. No pneumothorax.Bibasilar atelectasis. Unchanged cardiomediastinal silhouette. Unchanged cholecystectomy clips. IMPRESSION Improving bilateral effusions, moderate residual on the left, minimal onthe right. No pneumothorax. I have personally reviewed the image(s) and the resident's interpretationand agree with the findings, Chyna Johnson MD at 05/19/2023 2:19 PM Thank you for letting us participate in the care of this patient. If youare a health care provider and have any questions regarding this report,please contact the number below. For patients who have questions please contactthe health memory care program resident that requested your imaging first. Electronically signed by: Chyna Johnson MD, [facility]([phone]), at 05/19/2023 2:19 PM Alirio Hudson MD IMG DX ORDERABLES * (ABNORMAL) Basic Metabolic Panel (non-fasting) (05/19/2023 5:49 AM EDT) Glucose Lvl 93 65 - 199 mg/dL [facility] Comment:Diabetes: >=200 mg/d L plus symptoms BUN 45(H) 8 - 18 mg/dL [facility] Creatinine 1.02 0.70 - 1.20 mg/dL [facility] Sodium 138 135 - 145 mmol/L [facility] Potassium 3.9 3.5 - 5.0 mmol/L [facility] Comment: Please note: ??Patients with WBC >100,000 may have falsely elevated Potassium levels. ??For accurate Potassium quantification in these patients send serum separator tube (gold top) for subsequent determinations. ??Contact the Clinical Chemistry Laboratory if there are any questions. Chloride 102 98 - 107 mmol/L [facility] CO2 26 22 - 31 mmol/L [facility] Anion Gap 10 5 - 15 mmol/L [facility] Calcium 9.7 8.5 - 10.5 mg/dL [facility] Estimated GFR 60 >=60 mL/min/1. 73 m?? [facility] [...] and symptoms in addition to eGFR. Blood 05/19/2023 5:49 AM EDT 05/19/2023 6:25 AM EDT Narrative Resulting Agency Comment Spec In Lab Mara Serrano BUSINESS SERVICES ANALYST CHEMISTRY ORDERABL ES [facility] [place] [address] * IR Chest Tube Placement Right (05/18/2023 4:36 PM EDT) Anatomical Region Laterality Modality Chest X-Ray Angiograph y Narrative 05/18/2023 4:44 PM EDT Interventional Radiology Procedure Note Procedure: Ultrasound-guided non-tunneled thoracic drainage catheter insertion Indication for procedure: Right pleural effusion, dyspnea, recent TAVR Procedure summary: 1.) Limited thoracic ultrasound 2.) Ultrasound-guided non-tunneled thoracic drainage catheter insertion Pre-procedure: Initial thoracic ultrasound was performed with curved transducer. A safe window for chest drain was identified in the right posterior chest. Informed consent for the procedure including risks, benefits and alternatives was obtained. Active time-out was performed prior to the procedure. The site was prepared and draped. Maximal sterile barrier technique was used throughout the procedure. Method of sedation: The patient received split doses of intravenous fentanyl from the interventional radiology nurse while pulse, pressure, and oxygen saturation were continuously monitored. Technique: Under real-time ultrasound guidance, local anesthetic was administered ??down to the pleura. With a #11 scalpel, a small incision was made in the skin. An 18 ga needle was advanced into the pleural space with return of serous fluid. ??Serial dilation was performed and, over a wire, a 10.2 Fr pigtail drainage catheter advanced into the fluid. Catheter position in the pleural cavity was confirmed with ultrasound. With catheter left indwelling, locking mechanism was secured. Clean and sterile dressing applied. Medications: Lidocaine 1% 10 cc subcutaneous; fentanyl 50 mcg IV Estimated blood loss: 1 mL Complications: No immediate Specimens: None Impression: Ultrasound-guided right non-tunneled 10.2 Fr chest drain insertion with removal of 10 mL serosanguinous fluid. Service provider: Laure Ricks PA-C Attending of record: Kristopher Salgado MD 05/18/2023 Alirio Hudson MD IMG IR ORDERABLES * (ABNORMAL) Basic Metabolic Panel (non-fasting) (05/18/2023 2:54 AM EDT) Glucose Lvl 95 65 - 199 mg/dL [facility] Comment:Diabetes: >=200 mg/d L plus symptoms BUN 71(H) 8 - 18 mg/dL [facility] Comment:result rechecked-JSJ Creatinine 1.64(H) 0.70 - 1.20 mg/dL [facility] Comment:result rechecked-JSJ Sodium 137 135 - 145 mmol/L [facility] Potassium 3.7 3.5 - 5.0 mmol/L [facility] Comment: Please note: ??Patients with WBC >100,000 may have falsely elevated Potassium levels. ??For accurate Potassium quantification in these patients send serum separator tube (gold top) for subsequent determinations. ??Contact the Clinical Chemistry Laboratory if there are any questions. Chloride 100 98 - 107 mmol/L [facility] CO2 24 22 - 31 mmol/L [facility] Anion Gap 13 5 - 15 mmol/L [facility] Calcium 9.7 8.5 - 10.5 mg/dL [facility] Estimated GFR 34(L) >=60 mL/min/1. 73 m?? [facility] [...] and symptoms in addition to eGFR. Blood 05/18/2023 2:54 AM EDT 05/18/2023 3:19 AM EDT Narrative Resulting Agency Comment Spec In Lab Mara Serrano BUSINESS SERVICES ANALYST CHEMISTRY ORDERABL ES [facility] [place] [address] * XR Chest PA & Lateral (Generic) (05/17/2023 9:29 AM EDT) Anatomical Region Laterality Modality Chest N/A Digital Radiogra phy Impressions 05/17/2023 11:46 AM EDT Small pleural effusions, right greater than left. No pneumothorax. I have personally reviewed the image(s) and the resident's interpretation and agree with the findings, Ghassan Reyes MD at 05/17/2023 11:46 AM Thank you for letting us participate in the care of this patient. ??If you are a health care provider and have any questions regarding this report, please contact the number below. ??For patients who have questions please contact the health memory care program resident that requested your imaging first. ? Narrative 05/17/2023 11:46 AM EDT EXAMINATION: XR CHEST PA AND LATERAL (GENERIC) CLINICAL HISTORY: s/p TAVR ptx, effusions, interval changes TECHNIQUE: PA and lateral views of the chest COMPARISON: Chest radiograph 05/12/2023 09:49, chest radiograph 05/12/2023 00:57 FINDINGS: Support devices: Interval removal of endotracheal tube, enteric tube and right IJ pulmonary catheter and introducer sheath. Status post median sternotomy and aortic valve replacement. There are small effusions, right greater than left. No pneumothorax. Partially obscured by pleural effusions, cardiomediastinal silhouette appears normal. Cholecystectomy clips. Procedure Note Ghassan Reyse MD - 05/17/2023 EXAMINATION: XR CHEST PA AND LATERAL (GENERIC) CLINICAL HISTORY: s/p TAVR ptx, effusions, interval changes TECHNIQUE: PA and lateral views of the chest COMPARISON: Chest radiograph 05/12/2023 09:49, chest radiograph 05/12/2023 00:57 FINDINGS: Support devices: Interval removal of endotracheal tube, enteric tube andright IJ pulmonary catheter and introducer sheath. Status post median sternotomy and aortic valve replacement. There are small effusions, right greater than left. No pneumothorax. Partially obscured by pleural effusions, cardiomediastinal silhouetteappears normal. Cholecystectomy clips. IMPRESSION Small pleural effusions, right greater than left. No pneumothorax. I have personally reviewed the image(s) and the resident's interpretationand agree with the findings, Ghassan Reyes MD at 05/17/2023 11:46 AM Thank you for letting us participate in the care of this patient. If youare a health care provider and have any questions regarding this report,please contact the number below. For patients who have questions please contactthe health memory care program resident that requested your imaging first. Electronically signed by: Ghassan Reyes MD, [facility]([phone]), at 05/17/2023 11:46 AM Alirio Hudson MD IMG DX ORDERABLES * (ABNORMAL) Comprehensive metabolic panel (non-fasting) (05/17/2023 4:35 AM EDT) Glucose Lvl 89 65 - 199 mg/dL [facility] Comment:Diabetes: >=200 mg/d L plus symptoms BUN 97(H) 8 - 18 mg/dL [facility] Creatinine 2.97(H) 0.70 - 1.20 mg/dL [facility] Comment:result rechecked-JSJc Sodium 135 135 - 145 mmol/L [facility] Potassium 4.1 3.5 - 5.0 mmol/L [facility] Comment: Please note: ??Patients with WBC >100,000 may have falsely elevated Potassium levels. ??For accurate Potassium quantification in these patients send serum separator tube (gold top) for subsequent determinations. ??Contact the Clinical Chemistry Laboratory if there are any questions. Chloride 97(L) 98 - 107 mmol/L [facility] CO2 22 22 - 31 mmol/L [facility] Anion Gap 16(H) 5 - 15 mmol/L [facility] Calcium 9.6 8.5 - 10.5 mg/dL [facility] Total Protein 6.5 6.1 - 8.0 g/dL [facility] Albumin 3.7 3.2 - 5.2 g/dL [facility] AST 58(H) 0 - 30 unit/L [facility] ALT 66(H) 0 - 30 unit/L [facility] Alk Phos 86 35 - 105 unit/L [facility] Total Bilirubin 0.6 0.2 - 1.3 mg/dL [facility] Estimated GFR 17(L) >=60 mL/min/1. 73 m?? [facility] [...] and symptoms in addition to eGFR. Blood 05/17/2023 4:35 AM EDT 05/17/2023 4:41 AM EDT Narrative Resulting Agency Comment Spec In Lab Alirio Hudson MD CHEMISTRY ORDERABLE S [facility] [place] [address] * Potassium (05/16/2023 11:15 PM EDT) Pathologist [facility] Potassium 3.7 3.5 - 5.0 mmol/L [facility] Comment: Please note: ??Patients with WBC >100,000 may have falsely elevated Potassium levels. ??For accurate Potassium quantification in these patients send serum separator tube (gold top) for subsequent determinations. ??Contact the Clinical Chemistry Laboratory if there are any questions. Blood 05/16/2023 11:1 5 PM EDT 05/16/2023 11:23 PM EDT Narrative Resulting Agency Comment Spec In Lab Alirio Hudson MD CHEMISTRY ORDERABLE S [facility] [place] [address] * Magnesium (05/16/2023 5:22 PM EDT) [facility] [address] Magnesium 0.96 0.69 - 1.07 mmol/L [facility] Blood 05/16/2023 5:22 PM EDT 05/16/2023 5:27 PM EDT Narrative Resulting Agency Comment Spec In Lab Alirio Hudson MD CHEMISTRY ORDERABLE S Performing Organization Address City/[facility]/ZIP Co de Phone Number [facility] [place] [address] * (ABNORMAL) Basic Metabolic Panel (non-fasting) (05/16/2023 5:22 PM EDT) Pathologist [facility] Glucose Lvl 106 65 - 199 mg/dL [facility] Comment:Diabetes: >=200 mg/d L plus symptoms BUN 103(H) 8 - 18 mg/dL [facility] Creatinine 3.91(H) 0.70 - 1.20 mg/dL [facility] Comment:result rechecked-imm Sodium 132(L) 135 - 145 mmol/L [facility] Potassium 3.6 3.5 - 5.0 mmol/L [facility] Comment: Please note: ??Patients with WBC >100,000 may have falsely elevated Potassium levels. ??For accurate Potassium quantification in these patients send serum separator tube (gold top) for subsequent determinations. ??Contact the Clinical Chemistry Laboratory if there are any questions. Chloride 92(L) 98 - 107 mmol/L [facility] CO2 22 22 - 31 mmol/L [facility] Anion Gap 18(H) 5 - 15 mmol/L [facility] Calcium 9.7 8.5 - 10.5 mg/dL [facility] Estimated GFR 12(L) >=60 mL/min/1. 73 m?? [facility] [...] and symptoms in addition to eGFR. Blood 05/16/2023 5:22 PM EDT 05/16/2023 5:27 PM EDT Narrative Resulting Agency Comment Spec In Lab Alirio Hudson MD CHEMISTRY ORDERABLE S [facility] [place] [address] * (ABNORMAL) Potassium (05/16/2023 11:43 AM EDT) Potassium 3.3(L) 3.5 - 5.0 mmol/L [facility] Comment: Please note: ??Patients with WBC >100,000 may have falsely elevated Potassium levels. ??For accurate Potassium quantification in these patients send serum separator tube (gold top) for subsequent determinations. ??Contact the Clinical Chemistry Laboratory if there are any questions. Blood 05/16/2023 11:4 3 AM EDT 05/16/2023 11:47 AM EDT Narrative Resulting Agency Comment Spec In Lab Alirio Hudson MD CHEMISTRY ORDERABLE S [facility] [place] [address] * (ABNORMAL) Ferritin (05/16/2023 4:41 AM EDT) Pathologist [facility] Ferritin 1,813(H) 30 - 400 ng/mL [facility] Comment: Pediatric reference ranges not verified at [facility] interpret with caution. Reference ranges for females greater than 50 years of age approach values for men, i.e., 30-400 ng/mL. Blood 05/16/2023 4:41 AM EDT 05/16/2023 4:54 AM EDT Narrative Resulting Agency Comment Spec In Lab Kristopher Ayoub MD CHEMISTRY ORDERABLES [facility] [place] [address] * (ABNORMAL) PTH (05/16/2023 4:41 AM EDT) [facility] [address] PTH 120(H) 15 - 65 pg/mL [facility] Blood 05/16/2023 4:41 AM EDT 05/16/2023 4:54 AM EDT Narrative Resulting Agency Comment Spec In Lab Kristopher Ayoub MD CHEMISTRY ORDERABLES [facility] [place] [address] * Vitamin D, 25-Hydroxy (05/16/2023 4:41 AM EDT) Pathologist [facility] 25-OH Vit D Total 33 21 - 100 ng/mL [facility] 25-OH Vit D Interp Sufficient [facility] Blood 05/16/2023 4:41 AM EDT 05/16/2023 4:54 AM EDT Narrative Resulting Agency Comment Spec In Lab Kristopher Ayoub MD CHEMISTRY ORDERABLES [facility] [place] [address] * (ABNORMAL) Blood Gas Venous ([facility]) (05/16/2023 4:22 AM EDT) pH Mike 7.41 7.32 - 7.42 [facility] pCO2 Mike 32(L) 41 - 51 mmHg [facility] pO2 Mike 73(H) 25 - 40 mmHg [facility] HCO3 Mike 19.6 mmol/L [facility] BE Mike -5.1 mmol/L [facility] Hgb Blood Gas 9.7(L) 11.7 - 15.5 g/dL [facility] O2HB Mike 92.8 % [facility] COHB Mike 0.1 % [facility] Comment: Nonsmokers: 0.5-1.5% COHB Smokers: Variable, but usually less than 10% Toxic: 20-30% COHB Lethal: Greater than 60% COHB METHB Mike 0.3 <=1.5 % [facility] Na Whole Blood 130(L) 135 - 145 mmol/L [facility] K Whole Blood 3.7 3.5 - 5.0 mmol/L [facility] Comment: Please note: Patients with WBC >100,000 may have falsely elevated Potassium levels. Contact the Clinical Chemistry Laboratory if there are any questions. ICa Whole Blood 1.15 1.15 - 1.33 mmol/L [facility] Comment: Note: ??Total bilirubin higher than 20 mg/dL may lead to falsely low ionized calcium. CL Whole Blood 95(L) 98 - 107 mmol/L [facility] Gluc Whole Bld 82 65 - 199 mg/dL [facility] Comment:Diabetes: >=200 mg/d L plus symptoms Lactate WB 1.1 0.5 - 2.2 mmol/L [facility] BGas Source Venous [facility] Blood Venous Draw / Unknown 05/16/2023 4:22 AM EDT 05/16/2023 4:31 AM EDT Narrative Resulting Agency Comment Spec In Lab Bonita TOBAR CHEMISTRY ORDERABLES [facility] [place] [address] * (ABNORMAL) Differential, Automated (05/16/2023 4:20 AM EDT) Neutrophils % 84.1 % [facility] Neutr Abs (ANC) 6.22(H) 1.70 - 6.10 x10(3)/[facility] Lymphocytes % 5.8 % [facility] Lymphocytes Abs 0.4(L) 0.9 - 3.2 x10(3)/[facility] Monocytes % 8.8 % [facility] Monocyte Abs 0.6 0.3 - 0.9 x10(3)/[facility] Eosinophils % 0.4 % [facility] Eosinophils Abs 0.0 0.0 - 0.4 x10(3)/[facility] Basophils % 0.0 % [facility] Basophils Abs 0.0 0.0 - 0.1 x10(3)/[facility] Immature Gran % 0.90 % [facility] Comment: Immature granulocytes(IG's)percentage and absolute count will include metamyelocytes, myelocytes, and promyelocytes. Blood smears from CBCs yielding IG's will be scanned manually for concordance. If this scan disagrees with the automated IG or if promyelocytes are noted, a manual differential will be performed. Amanda Gran Abs 0.07(H) 0.00 - 0.04 x10(3)/ L [facility] Blood 05/16/2023 4:20 AM EDT 05/16/2023 4:29 AM EDT Narrative Resulting Agency Comment Spec In Lab James Agustin MD HEMATOLOGY ORDER JODIE [facility] [place] [address] * (ABNORMAL) Hemogram (05/16/2023 4:20 AM EDT) WBC 7.4 4.0 - 9.5 x10(3)/[facility] RBC 2.40(L) 4.00 - 5.21 x10(6)/[facility] Hemoglobin 7.8(L) 11.7 - 15.5 g/dL [facility] Hematocrit 22.5(L) 35.7 - 45.8 % [facility] MCV 93.8 82.6 - 94.4 [facility] MCH 32.5(H) 27.1 - 32.0 pg [facility] MCHC 34.7 31.7 - 35.0 g/dL [facility] Platelets 120(L) 145 - 357 x10(3)/[facility] RDWSD 42.9 37.0 - 46.0 [facility] RDWCV 12.9 11.5 - 14.1 % [facility] MPV 11.3 7.6 - 12.9 [facility] nRBC % Auto 0.7 % [facility] nRBC Abs Auto 0.050(H) 0.000 - 0.000 x10(3)/[facility] Blood 05/16/2023 4:20 AM EDT 05/16/2023 4:29 AM EDT Narrative Resulting Agency Comment Spec In Lab James Agustin MD HEMATOLOGY ORDER JODIE [facility] [place] [address] * (ABNORMAL) Basic Metabolic Panel (non-fasting) (05/16/2023 4:20 AM EDT) Glucose Lvl 89 65 - 199 mg/dL [facility] Comment:Diabetes: >=200 mg/d L plus symptoms BUN 108(H) 8 - 18 mg/dL [facility] Creatinine 4.74(H) 0.70 - 1.20 mg/dL [facility] Comment:result rechecked-OLIVA Sodium 132(L) 135 - 145 mmol/L [facility] Potassium 3.9 3.5 - 5.0 mmol/L [facility] Comment: Please note: ??Patients with WBC >100,000 may have falsely elevated Potassium levels. ??For accurate Potassium quantification in these patients send serum separator tube (gold top) for subsequent determinations. ??Contact the Clinical Chemistry Laboratory if there are any questions. Chloride 95(L) 98 - 107 mmol/L [facility] CO2 18(L) 22 - 31 mmol/L [facility] Anion Gap 19(H) 5 - 15 mmol/L [facility] Calcium 9.2 8.5 - 10.5 mg/dL [facility] Estimated GFR 10(L) >=60 mL/min/1. 73 m?? [facility] [...] and symptoms in addition to eGFR. Blood 05/16/2023 4:20 AM EDT 05/16/2023 4:29 AM EDT Narrative Resulting Agency Comment Spec In Lab Alirio Hudson MD CHEMISTRY ORDERABLE S Performing Organization Address City/[facility]/ZIP Co de Phone Number [facility] [place] [address] * (ABNORMAL) Iron and TIBC (05/16/2023 4:20 AM EDT) Pathologist [facility] Iron 31 30 - 150 mcg/dL [facility] TIBC 259 250 - 450 mcg/dL [facility] Iron Saturation 12(L) 20 - 50 % [facility] Blood 05/16/2023 4:20 AM EDT 05/16/2023 4:29 AM EDT Narrative Resulting Agency Comment Spec In Lab Kristopher Ayoub MD CHEMISTRY ORDERABLES Performing Organization Address [facility] Co de Phone Number [facility] [place] [address] * (ABNORMAL) Basic Metabolic Panel (non-fasting) (05/15/2023 12:50 AM EDT) [facility] [address] Glucose Lvl 101 65 - 199 mg/dL [facility] Comment:Diabetes: >=200 mg/d L plus symptoms BUN 109(H) 8 - 18 mg/dL [facility] Creatinine 5.62(H) 0.70 - 1.20 mg/dL [facility] Comment:result rechecked-KS Sodium 131(L) 135 - 145 mmol/L [facility] Comment:result rechecked-KS Potassium 3.7 3.5 - 5.0 mmol/L [facility] Comment: result rechecked-KS Please note: ??Patients with WBC >100,000 may have falsely elevated Potassium levels. ??For accurate Potassium quantification in these patients send serum separator tube (gold top) for subsequent determinations. ??Contact the Clinical Chemistry Laboratory if there are any questions. Chloride 92(L) 98 - 107 mmol/L [facility] Comment:result rechecked-KS CO2 18(L) 22 - 31 mmol/L [facility] Comment:result rechecked-KS Anion Gap 21(H) 5 - 15 mmol/L [facility] Calcium 8.9 8.5 - 10.5 mg/dL [facility] Estimated GFR 8(L) >=60 mL/min/1. 73 m?? [facility] [...] and symptoms in addition to eGFR. Blood 05/15/2023 12:5 0 AM EDT 05/15/2023 12:52 AM EDT Narrative Resulting Agency Comment Spec In Lab Alirio Hudson MD CHEMISTRY ORDERABLE S [facility] [place] [address] * (ABNORMAL) Hemogram (05/15/2023 12:50 AM EDT) WBC 9.1 4.0 - 9.5 x10(3)/[facility] RBC 2.19(L) 4.00 - 5.21 x10(6)/[facility] Hemoglobin 7.2(L) 11.7 - 15.5 g/dL [facility] Hematocrit 20.6(L) 35.7 - 45.8 % [facility] MCV 94.1 82.6 - 94.4 fL [facility] MCH 32.9(H) 27.1 - 32.0 pg [facility] MCHC 35.0 31.7 - 35.0 g/dL [facility] Platelets 109(L) 145 - 357 x10(3)/[facility] RDWSD 43.6 37.0 - 46.0 fL [facility] RDWCV 12.9 11.5 - 14.1 % [facility] MPV 10.4 7.6 - 12.9 fL [facility] nRBC % Auto 2.1 % [facility] nRBC Abs Auto 0.190(H) 0.000 - 0.000 x10(3)/[facility] Blood 05/15/2023 12:5 0 AM EDT 05/15/2023 12:52 AM EDT Narrative Resulting Agency Comment Spec In Lab Alirio Hudson MD HEMATOLOGY ORDERABL ES [facility] [place] [address] * (ABNORMAL) BLOOD GAS 2 VENOUS (05/15/2023 12:49 AM EDT) pH Mike 7.33 7.32 - 7.42 [facility] pCO2 Mike 37(L) 41 - 51 mmHg [facility] pO2 Mike 34 25 - 40 mmHg [facility] HCO3 Mike 19.1 mmol/L [facility] BE Mike -6.8 mmol/L [facility] Hgb Blood Gas 10.8(L) 11.7 - 15.5 g/dL [facility] O2HB Mike 58.1 % [facility] COHB Mike 0.3 % [facility] Comment: Nonsmokers: 0.5-1.5% COHB Smokers: Variable, but usually less than 10% Toxic: 20-30% COHB Lethal: Greater than 60% COHB METHB Mike 0.6 <=1.5 % [facility] Na Whole Blood 136 135 - 145 mmol/L [facility] K Whole Blood 3.7 3.5 - 5.0 mmol/L [facility] Comment: Please note: Patients with WBC >100,000 may have falsely elevated Potassium levels. Contact the Clinical Chemistry Laboratory if there are any questions. ICa Whole Blood 1.12(L) 1.15 - 1.33 mmol/L [facility] Comment: Note: ??Total bilirubin higher than 20 mg/dL may lead to falsely low ionized calcium. CL Whole Blood 95(L) 98 - 107 mmol/L [facility] Gluc Whole Bld 101 65 - 199 mg/dL [facility] Comment:Diabetes: >=200 mg/d L plus symptoms Lactate WB 1.3 0.5 - 2.2 mmol/L [facility] Flow Mike 1.0 LPM [facility] BGas Source Venous [facility] Blood 05/15/2023 12:4 9 AM EDT 05/15/2023 12:49 AM EDT Alirio Hudson MD CHEMISTRY ORDERABLE S Performing Organization Address City/State/[facility] Co de Phone Number [facility] [place] [address] * US Retroperitoneal Complete (05/14/2023 3:53 PM EDT) Anatomical Region Laterality Modality Abdomen Ultrasound 05/14/2023 3:44 PM EDT Impressions 05/14/2023 4:39 PM EDT 1. ??Normal sonographic appearance of the bilateral kidneys. No hydronephrosis or renal calculi. 2. ??Unchanged trace left perinephric fluid. 3. ??Partially visualized right pleural effusion. I have personally reviewed the image(s) and the resident's interpretation and agree with the findings, Hayden Robledo MD at 05/14/2023 4:32 PM Electronically signed by: Hayden Robledo MD, [facility] ([phone]), at 05/14/2023 4:32 PM Thank you for letting us participate in the care of this patient. If you are a health care provider and have any questions regarding this report, please contact the number above. For patients who have questions, please contact the health memory care program resident that requested your imaging first. ? Hayden Robledo, Staff Physician Electronically Signed Final Report ?? 05/14/2023 04:39 pm Narrative 05/14/2023 4:39 PM EDT Renal ? (Signed Final 05/14/2023 04:39 pm) PATIENT INFO: ID #: ? [id number] ?: ??55 (67 yrs)(F) Name: ? PURNIMAMARIZA THACKER ?Visit Date: 05/14/2023 03:44 pm PERFORMED BY: Attending: ?Meena CULP, Hayden Stafford Resident: ? Nell CULP, Anand August Performed By: ? Consuelo Tello RDMS Referred By: ?ALIRIO HUDSON Location: ? [place] SERVICE(S) PROVIDED: URETRO - Retroperitoneal Complete - [id number] ? [id number] INDICATIONS: EVANS COMPARISON: CT: Abdomen/Pelvis 05/11/23 RIGHT KIDNEY: Size (cm) ?L: ??11.6 Cortical Thickness: ?Normal Cortical Echogenicity: ?? Normal Hydronephrosis: ?No sonographic evidence LEFT KIDNEY: Size (cm) ?L: ??10.2 Cortical Thickness: ?Normal Cortical Echogenicity: ?? Normal Hydronephrosis: ?No sonographic evidence Comment: ?Trace perinephric fluid URINARY BLADDER: Comment: ?Not distended. ??Art catheter in place ADDITIONAL FINDINGS: Right pleural effusion Procedure Note Hayden Robledo MD - 05/14/2023 Renal (Signed Final 05/14/2023 04:39 pm) PATIENT INFO: ID #: [id number] : 55 (67 yrs)(F) Name: PURNIAM THACKER Visit Date: 05/14/2023 03:44 pm PERFORMED BY: Attending: Hayden Robledo MD Resident: Anand Camejo MD Performed By: Consuelo Tello RDMS Referred By: ALIRIO HUDSON Location: [place] SERVICE(S) PROVIDED: URETRO - Retroperitoneal Complete - [id number] INDICATIONS: EVANS COMPARISON: CT: Abdomen/Pelvis 05/11/23 RIGHT KIDNEY: Size (cm) L: 11.6 Cortical Thickness: Normal Cortical Echogenicity: Normal Hydronephrosis: No sonographic evidence LEFT KIDNEY: Size (cm) L: 10.2 Cortical Thickness: Normal Cortical Echogenicity: Normal Hydronephrosis: No sonographic evidence Comment: Trace perinephric fluid URINARY BLADDER: Comment: Not distended. Art catheter in place ADDITIONAL FINDINGS: Right pleural effusion IMPRESSION 1. Normal sonographic appearance of the bilateral kidneys. No hydronephrosis or renal calculi. 2. Unchanged trace left perinephric fluid. 3. Partially visualized right pleural effusion. I have personally reviewed the image(s) and the resident's interpretation and agree with the findings, Hayden Robledo MD at 05/14/2023 4:32 PM Electronically signed by: Hayden Robledo MD, [facility] ([phone]), at 05/14/2023 4:32 PM Thank you for letting us participate in the care of this patient. If you are a health care provider and have any questions regarding this report, please contact the number above. For patients who have questions, please contact the health memory care program resident that requested your imaging first. Hayden Robledo, Staff Physician Electronically Signed Final Report 05/14/2023 04:39 pm Alirio Hudson MD IMG US GEN ORDERABL ES * CK (05/14/2023 3:17 PM EDT) CK, Total 123 0 - 160 unit/L [facility] Blood 05/14/2023 3:17 PM EDT 05/14/2023 3:31 PM EDT Narrative Resulting Agency Comment Spec In Lab Alirio Hudson MD CHEMISTRY ORDERABLE S [facility] [place] [address] * (ABNORMAL) Uric acid (05/14/2023 3:17 PM EDT) Uric Acid 14.9(H) 2.5 - 6.5 mg/dL [facility] Blood 05/14/2023 3:17 PM EDT 05/14/2023 3:31 PM EDT Narrative Resulting Agency Comment Spec In Lab Alirio Hudson MD CHEMISTRY ORDERABLE S Performing Organization Address City/[facility]/ZIP Co de Phone Number [facility] [place] [address] * (ABNORMAL) Osmolality (05/14/2023 3:17 PM EDT) Osmolality 311(H) 275 - 295 mOsm/kg [facility] Blood 05/14/2023 3:17 PM EDT 05/14/2023 3:31 PM EDT Narrative Resulting Agency Comment Spec In Lab Alirio Hudson MD CHEMISTRY ORDERABLE S Performing Organization Address City/[facility]/ZIP Co de Phone Number [facility] [place] [address] * (ABNORMAL) Differential, Automated (05/14/2023 1:10 AM EDT) Neutrophils % 87.2 % [facility] Neutr Abs (ANC) 9.74(H) 1.70 - 6.10 x10(3)/[facility] Lymphocytes % 3.9 % [facility] Lymphocytes Abs 0.4(L) 0.9 - 3.2 x10(3)/[facility] Monocytes % 7.9 % [facility] Monocyte Abs 0.9 0.3 - 0.9 x10(3)/[facility] Eosinophils % 0.0 % [facility] Eosinophils Abs 0.0 0.0 - 0.4 x10(3)/[facility] Basophils % 0.1 % [facility] Basophils Abs 0.0 0.0 - 0.1 x10(3)/[facility] Immature Gran % 0.90 % [facility] Comment: Immature granulocytes(IG's)percentage and absolute count will include metamyelocytes, myelocytes, and promyelocytes. Blood smears from CBCs yielding IG's will be scanned manually for concordance. If this scan disagrees with the automated IG or if promyelocytes are noted, a manual differential will be performed. Amanda Gran Abs 0.10(H) 0.00 - 0.04 x10(3)/[facility] Blood 05/14/2023 1:10 AM EDT 05/14/2023 1:24 AM EDT Narrative Resulting Agency Comment Spec In Lab Bonita TOBAR HEMATOLOGY ORDERABLE S [facility] [place] [address] * (ABNORMAL) Hemogram (05/14/2023 1:10 AM EDT) WBC 11.2(H) 4.0 - 9.5 x10(3)/[facility] RBC 2.19(L) 4.00 - 5.21 x10(6)/[facility] Hemoglobin 7.2(L) 11.7 - 15.5 g/dL [facility] Hematocrit 20.3(L) 35.7 - 45.8 % [facility] MCV 92.7 82.6 - 94.4 fL [facility] MCH 32.9(H) 27.1 - 32.0 pg [facility] MCHC 35.5(H) 31.7 - 35.0 g/dL [facility] Platelets 112(L) 145 - 357 x10(3)/[facility] LAB[facility]ORY RDWSD 41.4 37.0 - 46.0 [facility]ATORY RDWCV 12.5 11.5 - 14.1 % [facility] MPV 10.4 7.6 - 12.9 [facility] nRBC % Auto 1.5 % [facility] nRBC Abs Auto 0.170(H) 0.000 - 0.000 x10(3)/[facility] Blood 05/14/2023 1:10 AM EDT 05/14/2023 1:24 AM EDT Narrative Resulting Agency Comment Spec In Lab Bonita TOBAR HEMATOLOGY ORDERABLE S Performing Organization Address City/State/[facility] Co de Phone Number [facility] [place] [address] * (ABNORMAL) Comprehensive metabolic panel (non-fasting) (05/14/2023 1:10 AM EDT) Glucose Lvl 120 65 - 199 mg/dL [facility] Comment:Diabetes: >=200 mg/d L plus symptoms BUN 98(H) 8 - 18 mg/dL [facility] Creatinine 4.80(H) 0.70 - 1.20 mg/dL [facility] Comment:result rechecked-ssc Sodium 132(L) 135 - 145 mmol/L [facility] Potassium 4.1 3.5 - 5.0 mmol/L [facility] Comment: Please note: ??Patients with WBC >100,000 may have falsely elevated Potassium levels. ??For accurate Potassium quantification in these patients send serum separator tube (gold top) for subsequent determinations. ??Contact the Clinical Chemistry Laboratory if there are any questions. Chloride 94(L) 98 - 107 mmol/L [facility] CO2 18(L) 22 - 31 mmol/L [facility] Anion Gap 20(H) 5 - 15 mmol/L [facility] Calcium 8.5 8.5 - 10.5 mg/dL [facility] Total Protein 5.8(L) 6.1 - 8.0 g/dL [facility] Albumin 3.6 3.2 - 5.2 g/dL [facility] AST 319(H) 0 - 30 unit/L [facility] ALT 437(H) 0 - 30 unit/L [facility] Alk Phos 86 35 - 105 unit/L [facility] Total Bilirubin 0.4 0.2 - 1.3 mg/dL [facility] Estimated GFR 9(L) >=60 mL/min/1. 73 m?? [facility] [...] and symptoms in addition to eGFR. Blood 05/14/2023 1:10 AM EDT 05/14/2023 1:24 AM EDT Narrative Resulting Agency Comment Spec In Lab Alirio Hudson MD CHEMISTRY ORDERABLE S Performing Organization Address [facility]/ZIP Co de Phone Number [facility] [place] [address] * APTT (05/13/2023 10:15 AM EDT) PTT 27 25 - 37 sec [facility] Comment: The PTT is NOT appropriate for heparin monitoring. Use the Anti-Xa level for heparin monitoring (HEP UFH) or LMWH monitoring (HEP LMW). A PTT less than 37 seconds generally indicates adequate hemostasis. Blood 05/13/2023 10:1 5 AM EDT 05/13/2023 10:46 AM EDT Narrative Resulting Agency Comment Spec In Lab Alirio Hudson MD HEMATOLOGY ORDERABL ES Performing Organization Address [facility] Co de Phone Number [facility] [place] [address] * (ABNORMAL) Prothrombin Time (05/13/2023 10:15 AM EDT) PT 14.6(H) 9.4 - 12.5 sec [facility] INR 1.3 [facility] Comment: An INR <2.0 indicates adequate procoagulant activity for hemostasis in most patients without underlying bleeding disorders, though the INR may not adequately reflect hemostatic capacity in patients with liver disease and synthetic impairment. The recommended target INR range for therapeutic anticoagulation is 2.0 ? 3.0 for most applications, though lower and higher ranges may be appropriate depending on clinical circumstances. Blood 05/13/2023 10:1 5 AM EDT 05/13/2023 10:46 AM EDT Narrative Resulting Agency Comment Spec In Lab Alirio Hudson MD HEMATOLOGY ORDERABL ES Performing Organization Address [facility]/ZIP Co de Phone Number [facility] [place] [address] * EKG 12 Lead (05/13/2023 9:22 AM EDT) Ventricular rate 92 BPM MUSE SYSTEM Atrial Rate 92 BPM MUSE SYSTEM P-R Interval 140 ms MUSE SYSTEM QRS Duration 104 ms MUSE SYSTEM Q-T Interval 384 ms MUSE SYSTEM QTC Calculated (Bezet) 474 ms MUSE SYSTEM Calculated P [place] 33 degrees MUSE SYSTEM Calculated R [place] 41 degrees MUSE SYSTEM Calculated T [place] -35 degrees MUSE SYSTEM INTERPRETATION Sinus rhythm with frequent Premature ventricular complexes Septal infarct , age undetermined ST & T wave abnormality, consider lateral ischemia Abnormal ECG When compared with ECG of 12-MAY-2023 10:10, Premature ventricular complexes are now Present I personally reviewed the tracing and edited the fellows interpretation Confirmed by fellow MD Anitha, Carissa ([id number]) on 05/13/2023 3:25:30 PM Confirmed by Maxx Best ([id number]) on 05/13/2023 8:30:56 PM MUSE SYSTEM 05/13/2023 9:22 AM EDT 05/13/2023 8:30 PM EDT Alirio Hudson MD ECG ORDERABLES MUSE SYSTEM * (ABNORMAL) Differential, Automated (05/13/2023 1:15 AM EDT) Pathologist [facility] Neutrophils % 88.1 % [facility] Neutr Abs (ANC) 7.62(H) 1.70 - 6.10 x10(3)/mc L [facility] Lymphocytes % 3.1 % [facility] Lymphocytes Abs 0.3(L) 0.9 - 3.2 x10(3)/mc L [facility] Monocytes % 7.9 % [facility] Monocyte Abs 0.7 0.3 - 0.9 x10(3)/mc L [facility] Eosinophils % 0.0 % [facility] Eosinophils Abs 0.0 0.0 - 0.4 x10(3)/mc L [facility] Basophils % 0.1 % [facility] Basophils Abs 0.0 0.0 - 0.1 x10(3)/mc L [facility] Immature Gran % 0.80 % [facility] Comment: Immature granulocytes(IG's)percentage and absolute count will include metamyelocytes, myelocytes, and promyelocytes. Blood smears from CBCs yielding IG's will be scanned manually for concordance. If this scan disagrees with the automated IG or if promyelocytes are noted, a manual differential will be performed. Amanda Gran Abs 0.07(H) 0.00 - 0.04 x10(3)/ L [facility] Blood 05/13/2023 1:15 AM EDT 05/13/2023 1:29 AM EDT Narrative Resulting Agency Comment Spec In Lab Lorri TOBAR HEMATOLOGY ORDERABLE S [facility] [place] [address] * (ABNORMAL) Hemogram (05/13/2023 1:15 AM EDT) WBC 8.6 4.0 - 9.5 x10(3)/[facility] RBC 2.37(L) 4.00 - 5.21 x10(6)/[facility] Hemoglobin 7.8(L) 11.7 - 15.5 g/dL [facility] Hematocrit 22.2(L) 35.7 - 45.8 % [facility] MCV 93.7 82.6 - 94.4 fL [facility] MCH 32.9(H) 27.1 - 32.0 pg [facility] MCHC 35.1(H) 31.7 - 35.0 g/dL [facility] Platelets 130(L) 145 - 357 x10(3)/[facility] RDWSD 41.7 37.0 - 46.0 [facility] RDWCV 12.5 11.5 - 14.1 % [facility] MPV 10.2 7.6 - 12.9 [facility] nRBC % Auto 0.5 % [facility] nRBC Abs Auto 0.040(H) 0.000 - 0.000 x10(3)/mcL [facility] Blood 05/13/2023 1:15 AM EDT 05/13/2023 1:29 AM EDT Narrative Resulting Agency Comment Spec In Lab Lorri TOBAR HEMATOLOGY ORDERABLE S Performing Organization Address City/[facility]/ZIP Co de Phone Number [facility] [place] [address] * (ABNORMAL) Hepatic Function Panel (05/13/2023 1:15 AM EDT) Total Protein 5.5(L) 6.1 - 8.0 g/dL [facility] Albumin 3.0(L) 3.2 - 5.2 g/dL [facility] AST 792(H) 0 - 30 unit/L [facility] ALT 903(H) 0 - 30 unit/L [facility] Alk Phos 85 35 - 105 unit/L [facility] Total Bilirubin 0.5 0.2 - 1.3 mg/dL [facility] Bili, Direct 0.3 0.0 - 0.3 mg/dL [facility] Blood 05/13/2023 1:15 AM EDT 05/13/2023 1:29 AM EDT Narrative Resulting Agency Comment Spec In Lab Alirio Hudson MD CHEMISTRY ORDERABLE S Performing Organization Address City/[facility]/ZIP Co de Phone Number [facility] [place] [address] * (ABNORMAL) Basic Metabolic Panel (non-fasting) (05/13/2023 1:15 AM EDT) Glucose Lvl 107 65 - 199 mg/dL [facility] Comment:Diabetes: >=200 mg/d L plus symptoms BUN 82(H) 8 - 18 mg/dL [facility] Creatinine 3.15(H) 0.70 - 1.20 mg/dL [facility] Comment:result rechecked-JSJ Sodium 132(L) 135 - 145 mmol/L [facility] Potassium 3.8 3.5 - 5.0 mmol/L [facility] Comment: Please note: ??Patients with WBC >100,000 may have falsely elevated Potassium levels. ??For accurate Potassium quantification in these patients send serum separator tube (gold top) for subsequent determinations. ??Contact the Clinical Chemistry Laboratory if there are any questions. Chloride 95(L) 98 - 107 mmol/L [facility] CO2 20(L) 22 - 31 mmol/L [facility] Anion Gap 17(H) 5 - 15 mmol/L [facility] Calcium 8.3(L) 8.5 - 10.5 mg/dL [facility] Estimated GFR 16(L) >=60 mL/min/1. 73 m?? [facility] [...] and symptoms in addition to eGFR. Blood 05/13/2023 1:15 AM EDT 05/13/2023 1:29 AM EDT Narrative Resulting Agency Comment Spec In Lab Alirio Hudson MD CHEMISTRY ORDERABLE S [facility] [place] [address] * (ABNORMAL) BLOOD GAS 2 ARTERIAL (05/12/2023 3:57 PM EDT) Pathologist [facility] pH Art 7.39 7.35 - 7.45 [facility] pCO2 Art 33(L) 35 - 45 mmHg [facility] pO2 Art 101 85 - 104 mmHg [facility] HCO3 Art 19.5(L) 20.0 - 26.0 mmol/L [facility] BE Art -5.5(L) -3.0 - 3.0 mmol/L [facility] Hgb Blood Gas 9.8(L) 11.7 - 15.5 g/dL [facility] O2HB Art 95.2 94.0 - 97.0 % [facility] COHB Art 0.2 % [facility] Comment: Nonsmokers: 0.5-1.5% COHB Smokers: Variable, but usually less than 10% Toxic: 20-30% COHB Lethal: Greater than 60% COHB METHB Art 0.8 <=1.5 % [facility] Na Whole Blood 129(L) 135 - 145 mmol/L [facility] K Whole Blood 3.8 3.5 - 5.0 mmol/L [facility] Comment: Please note: Patients with WBC >100,000 may have falsely elevated Potassium levels. Contact the Clinical Chemistry Laboratory if there are any questions. ICa Whole Blood 1.05(L) 1.15 - 1.33 mmol/L [facility] Comment: Note: ??Total bilirubin higher than 20 mg/dL may lead to falsely low ionized calcium. CL Whole Blood 96(L) 98 - 107 mmol/L [facility] Gluc Whole Bld 178 65 - 199 mg/dL [facility] Comment:Diabetes: >=200 mg/d L plus symptoms. Lactate WB 1.5 0.5 - 2.2 mmol/L [facility] FIO2 Art 40 % [facility] PF Ratio Art 252 [facility] Blood 05/12/2023 3:57 PM EDT 05/12/2023 3:57 PM EDT Alirio Hudson MD CHEMISTRY ORDERABLE S [facility] [place] [address] * (ABNORMAL) Coox2 (05/12/2023 2:25 PM EDT) pO2 Coox 37 mmHg [facility] Hgb Blood Gas 9.5(L) 11.7 - 15.5 g/dL [facility] O2HB Coox 59.9 % [facility] COHB Coox 0.3 % [facility] Comment: Nonsmokers: 0.5-1.5% COHB Smokers: Variable, but usually less than 10% Toxic: 20-30% COHB Lethal: Greater than 60% COHB METHB Coox 0.7 <=1.5 % [facility] Source Coox Mixed Venous [facility] Blood 05/12/2023 2:25 PM EDT 05/12/2023 2:25 PM EDT Alirio Hudson MD CHEMISTRY ORDERABLE S Performing Organization Address City/[facility] Co de Phone Number [facility] [place] [address] * (ABNORMAL) BLOOD GAS 2 ARTERIAL (05/12/2023 2:23 PM EDT) pH Art 7.37 7.35 - 7.45 [facility] pCO2 Art 36 35 - 45 mmHg [facility] pO2 Art 102 85 - 104 mmHg [facility] HCO3 Art 20.4 20.0 - 26.0 mmol/L [facility] BE Art -4.8(L) -3.0 - 3.0 mmol/L [facility] Hgb Blood Gas 12.7 11.7 - 15.5 g/dL [facility] O2HB Art 95.4 94.0 - 97.0 % [facility] COHB Art 0.3 % [facility] Comment: Nonsmokers: 0.5-1.5% COHB Smokers: Variable, but usually less than 10% Toxic: 20-30% COHB Lethal: Greater than 60% COHB METHB Art 0.7 <=1.5 % [facility] Na Whole Blood 129(L) 135 - 145 mmol/L [facility] K Whole Blood 3.7 3.5 - 5.0 mmol/L [facility] Comment: Please note: Patients with WBC >100,000 may have falsely elevated Potassium levels. Contact the Clinical Chemistry Laboratory if there are any questions. ICa Whole Blood 1.05(L) 1.15 - 1.33 mmol/L [facility] Comment: Note: ??Total bilirubin higher than 20 mg/dL may lead to falsely low ionized calcium. CL Whole Blood 95(L) 98 - 107 mmol/L [facility] Gluc Whole Bld 168 65 - 199 mg/dL [facility] Comment:Diabetes: >=200 mg/d L plus symptoms. Lactate WB 1.8 0.5 - 2.2 mmol/L [facility] FIO2 Art 40 % [facility] PF Ratio Art 255 [facility] Blood 05/12/2023 2:23 PM EDT 05/12/2023 2:23 PM EDT Alirio Hudson MD CHEMISTRY ORDERABLE S Performing Organization Address City/State/[facility] Co de Phone Number [facility] [place] [address] * (ABNORMAL) Troponin (05/12/2023 2:05 PM EDT) Troponin-T HS 1,022(H) <=14 ng/L [facility] Comment: This patient's troponin T concentration was determined using the Rubén 5th Generation troponin T assay. The 99th percentile for Troponin T for this test is 14 ng/L for females, and 22 ng/L for males. According to the fourth universal definition of myocardial infarction, the term acute myocardial infarction should be used when there is acute myocardial injury with clinical evidence of acute myocardial ischemia and with detection of a rise and/or fall of cardiac troponin values with at least one value above the 99th percentile and at least one of the following: - Symptoms of myocardial ischemia; - New ischemic ECG changes; - Development of pathological Q waves; - Imaging evidence of new loss of viable myocardium or new regional wall motion abnormality in a pattern consistent with an ischemic etiology; - Identification of a coronary thrombus by angiography or autopsy (not for type 2 or 3 MIs) Serial measurement of troponin and the change in troponin concentration over time (delta) is crucial for the diagnosis of acute myocardial infarction. Guidance on the interpretation of the new 5th Generation Troponin T values and the delta troponin value can be found in the [facility] Test Catalog Troponin - [facility] Test Catalog Reference: Fourth [place] Definition of Myocardial Infarction. Journal of the [place] [employer] 2018;72:8192-3195 Blood 05/12/2023 2:05 PM EDT 05/12/2023 2:14 PM EDT Narrative Resulting Agency Comment Spec In Lab Alirio Hudson MD CHEMISTRY ORDERABLE S Performing Organization Address [facility]/ZIP Co de Phone Number [facility] [place] [address] * (ABNORMAL) Hemoglobin (05/12/2023 2:05 PM EDT) Hemoglobin 8.5(L) 11.7 - 15.5 g/dL [facility] Blood 05/12/2023 2:05 PM EDT 05/12/2023 2:14 PM EDT Narrative Resulting Agency Comment Spec In Lab Alirio Hudson MD HEMATOLOGY ORDERABL ES Performing Organization Address [facility] Co de Phone Number [facility] [place] [address] * Potassium (05/12/2023 2:05 PM EDT) Potassium 3.9 3.5 - 5.0 mmol/L [facility] Comment: Please note: ??Patients with WBC >100,000 may have falsely elevated Potassium levels. ??For accurate Potassium quantification in these patients send serum separator tube (gold top) for subsequent determinations. ??Contact the Clinical Chemistry Laboratory if there are any questions. Blood 05/12/2023 2:05 PM EDT 05/12/2023 2:14 PM EDT Narrative Resulting Agency Comment Spec In Lab Alriio Hudson MD CHEMISTRY ORDERABLE S [facility] [place] [address] * (ABNORMAL) BLOOD GAS 2 ARTERIAL (05/12/2023 11:05 AM EDT) pH Art 7.34(L) 7.35 - 7.45 [facility] pCO2 Art 42 35 - 45 mmHg [facility] pO2 Art 73(L) 85 - 104 mmHg [facility] HCO3 Art 22.1 20.0 - 26.0 mmol/L [facility] BE Art -3.6(L) -3.0 - 3.0 mmol/L [facility] Hgb Blood Gas 9.3(L) 11.7 - 15.5 g/dL [facility] O2HB Art 89.3(L) 94.0 - 97.0 % [facility] COHB Art 0.2 % [facility] Comment: Nonsmokers: 0.5-1.5% COHB Smokers: Variable, but usually less than 10% Toxic: 20-30% COHB Lethal: Greater than 60% COHB METHB Art 0.9 <=1.5 % [facility] Na Whole Blood 131(L) 135 - 145 mmol/L [facility] K Whole Blood 3.8 3.5 - 5.0 mmol/L [facility] Comment: Please note: Patients with WBC >100,000 may have falsely elevated Potassium levels. Contact the Clinical Chemistry Laboratory if there are any questions. ICa Whole Blood 1.04(L) 1.15 - 1.33 mmol/L [facility] Comment: Note: ??Total bilirubin higher than 20 mg/dL may lead to falsely low ionized calcium. CL Whole Blood 96(L) 98 - 107 mmol/L [facility] Gluc Whole Bld 152 65 - 199 mg/dL [facility] Comment:Diabetes: >=200 mg/d L plus symptoms. Lactate WB 2.8(H) 0.5 - 2.2 mmol/L [facility] FIO2 Art 40 % [facility] PF Ratio Art 182 [facility] Blood 05/12/2023 11:0 5 AM EDT 05/12/2023 11:05 AM EDT Alirio Hudson MD CHEMISTRY ORDERABLE S Performing Organization Address City/State/[facility] Co de Phone Number [facility] [place] [address] * (ABNORMAL) BLOOD GAS 2 ARTERIAL (05/12/2023 10:14 AM EDT) pH Art 7.18(Criti gabrielle) 7.35 - 7.45 [facility] Comment:Noted by keyboard instrument repairer. pCO2 Art 45 35 - 45 mmHg [facility] pO2 Art 186(H) 85 - 104 mmHg [facility] HCO3 Art 16.2(L) 20.0 - 26.0 mmol/L [facility] BE Art -12.2(L) -3.0 - 3.0 mmol/L [facility] Hgb Blood Gas 10.0(L) 11.7 - 15.5 g/dL [facility] O2HB Art 97.0 94.0 - 97.0 % [facility] COHB Art 0.2 % [facility] Comment: Nonsmokers: 0.5-1.5% COHB Smokers: Variable, but usually less than 10% Toxic: 20-30% COHB Lethal: Greater than 60% COHB METHB Art 0.9 <=1.5 % [facility] Na Whole Blood 129(L) 135 - 145 mmol/L [facility] K Whole Blood 3.6 3.5 - 5.0 mmol/L [facility] Comment: Please note: Patients with WBC >100,000 may have falsely elevated Potassium levels. Contact the Clinical Chemistry Laboratory if there are any questions. ICa Whole Blood 1.10(L) 1.15 - 1.33 mmol/L [facility] Comment: Note: ??Total bilirubin higher than 20 mg/dL may lead to falsely low ionized calcium. CL Whole Blood 97(L) 98 - 107 mmol/L [facility] Gluc Whole Bld 161 65 - 199 mg/dL [facility] Comment:Diabetes: >=200 mg/d L plus symptoms. Lactate WB 3.3(H) 0.5 - 2.2 mmol/L [facility] FIO2 Art 100 % [facility] PF Ratio Art 186 [facility] Blood 05/12/2023 10:1 4 AM EDT 05/12/2023 10:14 AM EDT Alirio Hudson MD CHEMISTRY ORDERABLE S Performing Organization Address City/State/[facility] Co de Phone Number [facility] [place] [address] * EKG 12 Lead (05/12/2023 10:10 AM EDT) Ventricular rate 116 BPM MUSE SYSTEM Atrial Rate 116 BPM MUSE SYSTEM P-R Interval 158 ms MUSE SYSTEM QRS Duration 114 ms MUSE SYSTEM Q-T Interval 348 ms MUSE SYSTEM QTC Calculated (Bezet) 483 ms MUSE SYSTEM Calculated P [place] 37 degrees MUSE SYSTEM Calculated R [place] 31 degrees MUSE SYSTEM Calculated T [place] -138 degrees MUSE SYSTEM INTERPRETATION Sinus tachycardia with intermittent aberrant ventricular conduction Possible Left atrial enlargement Incomplete left bundle block Left ventricular hypertrophy with repolarization abnormality ( Sokolow-Orozco , [place] product ) ST & T wave abnormality in Inferolateral leads Abnormal ECG When compared with ECG of 10-MAY-2023 13:16, ST & T wave abnormality is more pronounced in inferolateral leads I personally reviewed the tracing and edited the fellows interpretation Confirmed by fellow MD Anuja, Jim ([id number]) on 05/12/2023 1:04:20 PM Confirmed by MD Mono, Eleni ([id number]) on 05/12/2023 9:28:34 PM MUSE SYSTEM 05/12/2023 10:1 0 AM EDT 05/12/2023 9:28 PM EDT Alirio Hudson MD ECG ORDERABLES MUSE SYSTEM * XR Chest One View (05/12/2023 9:53 AM EDT) Anatomical Region Laterality Modality Chest N/A Digital Radiogra phy Impressions 05/12/2023 10:08 AM EDT 1. ??Improved pulmonary vascular congestion/edema. 2. ??Unchanged small bilateral pleural effusions. 3. ??Interval placement of ET tube with tip 2 cm above the shira, recommend retraction by about 1-2 cm. 4. ??Satisfactory position of pulmonary artery catheter status post retraction. I have personally reviewed the image(s) and the resident's interpretation and agree with the findings, Chyna Johnson MD at 05/12/2023 10:08 AM Thank you for letting us participate in the care of this patient. ??If you are a health care provider and have any questions regarding this report, please contact the number below. ??For patients who have questions please contact the health memory care program resident that requested your imaging first. ? Electronically signed by: Chyna Johnson MD, [facility] ??([phone]), at 05/12/2023 10:08 AM Narrative 05/12/2023 10:08 AM EDT EXAMINATION: XR CHEST ONE VIEW CLINICAL HISTORY: Post TAVR TECHNIQUE: 1 view of the chest COMPARISON: Chest radiograph from earlier today FINDINGS: Interval placement of endotracheal tube with tip terminating 2 cm above the shira. Interval placement of enteric tube projecting along the expected course of the esophagus and outside the nczuq-qc-mymr. Interval retraction of right IJ approach pulmonary artery catheter with tip now projecting in the right pulmonary artery. Additional lines and tubes external to the patient project over the thorax. Improved pulmonary vascular congestion/edema. Unchanged small bilateral pleural effusions with associated basilar atelectasis. No pneumothorax. The cardiomediastinal silhouette is unchanged. Aortic valve device present. No acute osseous abnormality. Procedure Note Chyna Johnson MD - 05/12/2023 EXAMINATION: XR CHEST ONE VIEW CLINICAL HISTORY: Post TAVR TECHNIQUE: 1 view of the chest COMPARISON: Chest radiograph from earlier today FINDINGS: Interval placement of endotracheal tube with tip terminating 2 cm abovethe shira. Interval placement of enteric tube projecting along the expected course ofthe esophagus and outside the zfysm-rf-ptgh. Interval retraction of right IJ approach pulmonary artery catheter withtip now projecting in the right pulmonary artery. Additional lines and tubes external to the patient project over thethorax. Improved pulmonary vascular congestion/edema. Unchanged small bilateralpleural effusions with associated basilar atelectasis. No pneumothorax. The cardiomediastinal silhouette is unchanged. Aortic valve devicepresent. No acute osseous abnormality. IMPRESSION 1. Improved pulmonary vascular congestion/edema. 2. Unchanged small bilateral pleural effusions. 3. Interval placement of ET tube with tip 2 cm above the shira,recommend retraction by about 1-2 cm. 4. Satisfactory position of pulmonary artery catheter status postretraction. I have personally reviewed the image(s) and the resident's interpretationand agree with the findings, Chyna Johnson MD at 05/12/2023 10:08 AM Thank you for letting us participate in the care of this patient. If youare a health care provider and have any questions regarding this report,please contact the number below. For patients who have questions please contactthe health memory care program resident that requested your imaging first. Electronically signed by: Chyna Johnson MD, [facility]([phone]), at 05/12/2023 10:08 AM Alirio Hudson MD IMG DX ORDERABLES * ECHO LMTD W/O CONTRAST W LMTD SPEC DOPP COLOR DOPP (05/12/2023 9:23 AM EDT) EF 20 HEARTLAB SYSTEM Anatomical Region Laterality Modality Cardiac Other 05/12/2023 7:33 AM EDT Narrative 05/12/2023 10:18 AM EDT ? Echocardiogram Report Name: PURNIMA THACKER ?Study Date: 05/12/2023 07:33 AMBP: 96/63 mmHg ? Patient Location: [place]06 A : 1955 ? Height: 154 cm ? Account: [id number] Age: 67 yrs ? Weight: 75 kg Gender: Female ?BSA: 1.7 m2 Ordering Physician: RADHA HOLLINS Referring Physician: RADHA HOLLINS Performed By: Dilma Bee RDCS Reason For Study: Guidance for TAVR procedure Exam Location: [facility]. 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 LVEF visually estimated at 15%. 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 There is no pericardial effusion, but a left pleural effusion is present. Pre-implant Doppler assessment of the aortic valve not performed, but on 05/08/23, mean gradient 40 mmHg, peak velocity 4.0 m/s, DI 0.15, stroke volume index 28 mL/m2. POST TAVR: Normal function of the maamy-xs-etkfv prosthesis. See below for hemodynamic parameters. Slight improvement in left and right ventricular systolic function. LVEF now 20-25%. No pericardial effusion. See report for additional findings. Procedure Limited - 04396. Doppler - 23574. Color Doppler - 31211. Left Ventricle Left ventricle is of normal size. Wall thickness is mildly increased. Left ventricular systolic function is severely reduced. Left ventricular ejection fraction is estimated visually at 15%. Severe global hypokinesis. Right Ventricle The right ventricle is of normal size. Right ventricular systolic function is severely decreased. Left Atrium The left atrium is severely dilated. Right Atrium The right atrium is normal. Aortic Valve The aortic prosthetic valve appears to be functioning normally. There is a transcatheter valve in the aortic position. 23mm Corona Resilia. The date or year of insertion is 05/12/2023. The peak gradient across the prosthesis is 28 mmHg. The mean gradient across the prosthesis is 19 mmHg. There appears to be no paravalvular regurgitation. There appears to be no intravalvular regurgitation. Aortic bioprosthesis leaflets are thin and move normally. Mitral Valve The mitral valve leaflets are thickened. There is no mitral stenosis. There is mild mitral regurgitation. Tricuspid Valve The tricuspid valve is structurally normal. There is mild tricuspid regurgitation. Great Arteries The aortic root is of normal size. No abnormalities are identified. The ascending aorta is not well visualized. Pericardium/Pleural There is no pericardial effusion. There is a left pleural effusion. ? 2D Measurements ? Volumes ?IVSd: 1.4 cm ? LAV(MOD-bp) Indexed: ?LVIDd: 5.2 cm ?62.7 ml/m2 ?LVIDs: 4.1 cm ?LVPWd: 1.3 cm ?RA A4Cs_phl: 15.7 cm2 ?LV mass(C)d: 301.4 grams ? SV(LVOT): 57.5 ml ?LV mass(C)dI: 173.8 grams/m2 ?? CO(LVOT): 6.4 l/min ?Ao root diam: 3.5 cm ? LV Stroke Volume: 69.0 ml ? SI(LVOT): 33.2 ml/m2 ?Ao root diam index: 2.0 ?LVOT diam: 2.1 cm ?CI(LVOT): 3.7 l/min/m2 Doppler LV V1 VTI: 16.8 cm LVOT max Velocity: 118.0 cm/sec Ao V2 VTI: 41.5 cm Ao Max: 264.7 cm/sec Ao valve max: 28.0 mmHg Ao valve mean: 18.6 mmHg MV E max wero: 97.3 cm/sec MV dec time: 0.23 sec GEOVANNA(I,D): 1.4 cm2 Dimensionless index Aov: 0.40 I ?WMSI = 2.00 ? % Normal = 0 ?Segments ??Size X - Cannot ?2 - ?4 - ?1-2 ? small Interpret ?1 - Normal ?? Hypokinetic 3 - Akinetic Dyskinetic ?? 3-5 ? moderate 5 - ? 6-14 ?large Aneurysmal ?15-16 ?? diffuse Procedure Note Enrique Chua MD - 05/12/2023 Echocardiogram Report Name: PURNIMA THACKER Study Date: 307:33 AMBP: 96/63 mmHg Patient Location: [address] : 1955 Height: 154 cm Account: [id number] Age: 67 yrs Weight: 75 kg Gender: Female BSA: 1.7 m2 Ordering Physician: RADHA HOLLINS Referring Physician: RADHA HOLLINS Performed By: Dilma Bee RDCS Reason For Study: Guidance for TAVR procedure Exam Location: [facility]. 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 LVEFvisually estimated at 15%. There is severe stenosis of a bioprosthetic aorticvalve. There is no pericardial effusion, but a left pleural effusion is present.Pre-implant Doppler assessment of the aortic valve not performed, but on 05/08/23,mean gradient 40 mmHg, peak velocity 4.0 m/s, DI 0.15, stroke volume index 28mL/m2. POST TAVR: Normal function of the jhqsx-mm-bvmuv prosthesis. See belowfor hemodynamic parameters. Slight improvement in left and right ventricularsystolic function. LVEF now 20-25%. No pericardial effusion. See report for additional findings. Procedure Limited - 81026. Doppler - 55472. Color Doppler - 70654. Left Ventricle Left ventricle is of normal size. Wall thickness is mildly increased.Left ventricular systolic function is severely reduced. Left ventricularejection fraction is estimated visually at 15%. Severe global hypokinesis. Right Ventricle The right ventricle is of normal size. Right ventricular systolic functionis severely decreased. Left Atrium The left atrium is severely dilated. Right Atrium The right atrium is normal. Aortic Valve The aortic prosthetic valve appears to be functioning normally. There jose alejandro transcatheter valve in the aortic position. 23mm Corona Resilia. The dateor year of insertion is 05/12/2023. The peak gradient across the prosthesis is 28mmHg. The mean gradient across the prosthesis is 19 mmHg. There appears to myrna paravalvular regurgitation. There appears to be no intravalvularregurgitation. Aortic bioprosthesis leaflets are thin and move normally. Mitral Valve The mitral valve leaflets are thickened. There is no mitral stenosis.There is mild mitral regurgitation. Tricuspid Valve The tricuspid valve is structurally normal. There is mild tricuspidregurgitation. Great Arteries The aortic root is of normal size. No abnormalities are identified. Theascending aorta is not well visualized. Pericardium/Pleural There is no pericardial effusion. There is a left pleural effusion. 2D Measurements Volumes IVSd: 1.4 cm LAV(MOD-bp)Indexed: LVIDd: 5.2 cm 62.7 ml/m2 LVIDs: 4.1 cm LVPWd: 1.3 cm RA A4Cs_phl: 15.7cm2 LV mass(C)d: 301.4 grams SV(LVOT): 57.5ml LV mass(C)dI: 173.8 grams/m2 CO(LVOT): 6.4l/min Ao root diam: 3.5 cm LV Stroke Volume:69.0 ml SI(LVOT): 33.2ml/m2 Ao root diam index: 2.0 LVOT diam: 2.1 cm CI(LVOT): 3.7l/min/m2 Doppler LV V1 VTI: 16.8 cm LVOT max Velocity: 118.0 cm/sec Ao V2 VTI: 41.5 cm Ao Max: 264.7 cm/sec Ao valve max: 28.0 mmHg Ao valve mean: 18.6 mmHg MV E max wero: 97.3 cm/sec MV dec time: 0.23 sec GEOVANNA(I,D): 1.4 cm2 Dimensionless index Aov: 0.40 I WMSI = 2.00 % Normal = 0 SegmentsSize X - Cannot 2 - 4 - 1-2small Interpret 1 - Normal Hypokinetic 3 - Akinetic Dyskinetic 3-5moderate 5 - 6-14large Aneurysmal 15-16diffuse Radha Hollins MD ECHO ORDERABLES * CARDIAC CATHETERIZATION (05/12/2023 9:10 AM EDT) Anatomical Region Laterality Modality Other Narrative 05/12/2023 2:37 PM EDT ?[facility] ? Cardiac Catheterization/Intervention Report ? Patient Name: Kirstie, Purnima M. ? Procedure Date: 05/12/2023 ? A #: [id number] ? Primary Physician: Antelmo Sharma ? Case #: [id number] ? File Name: [id number] ? Catheterization Order Number: [id number] ? [facility] ? Final Report [place], [place] ? Patient Name: ? Purnima Thacker ? ID#: ?[id number] ? : ?1955 ? Procedure Date: ? May 12, 2023 ? Case #: ? [id number] ? Room: ? 6 ? Case Physicians: ?Antelmo Sharma M.D. ?Start: ?08:03 ?Alirio Hudson M.D. ?Admission: ??05/08/2023 ?Lynda Mcgowan M.D. ? Discharge: ??05/22/2023 ?Fellow: ? Kristied Bhavna Tejeda. ? Referring Physician: ??Mario Alberto Chin M.D. ? Procedures: ?* Coronary Angiography ?* Left Heart Catheterization ?* Coronary Stent Insertion ?* Transcatheter Aortic Valve Replacement ?* Vascular Closure Device Deployment ?* Temporary Pacemaker Insertion In [employer] ?* Endotracheal Intubation By Non-Cath Physician ?* Cardiopulmonary Resuscitation ?* Access Site Angiography ?* Anesthesia ?* Arterial Blood Gases ?* Transthoracic Echo During Cath ? History ?Purnima Thacker is a 67 year old woman. She has hypertension and a ?family history of coronary artery disease. The patient's smoking status ?is Never. She has hypercholesterolemia managed with lipid therapy. The ?patient was in cardiogenic shock prior to the procedure. She has a ?history of an ejection fraction less than or equal to 35%. The patient ?has a history of CHF. The CHF is NYHA Functional Class IV, is newly ?diagnosed and is classified as Systolic. The patient has a history of a ?prior aortic valve replacement with a biological prosthesis. She also has ?a total of one aortic valve surgery. Prior to the initiation of this ?procedure, the patient was designated as ASA Class IV. The [facility] clinical ?frailty scale is 4: Vulnerable. ? Diagnostic Tests: ?Prior Coronary Angiography: ? Prior coronary angiography was performed on 06/03/2016 and showed no ? CAD. LV ejection fraction within 6 months is 53%. ?Electrocardiography: ? EKG was assessed by ECG. EKG was Abnormal. EKG showed other ? abnormality. ?Medications Prior to Procedure: ? Aspirin, Angiotensin II Receptor Palak, Calcium Channel Blocking ? Agent and Statin. ? Indications for Diagnostic Cath: ?The priority of the diagnostic procedure was Urgent. Chest pain symptom ?assessment was: Non-anginal Chest Pain. One of the indications for cath ?is valvular heart disease. The patient has Severe aortic stenosis. This ?patient had cardiovascular instability due to cardiogenic shock. ? Technique: ?A 14Fr sheath was inserted in the right femoral artery utilizing the ?Seldinger technique. A 6Fr sheath was inserted in the left femoral artery ?utilizing the Seldinger technique. A 6Fr sheath was inserted in the left ?femoral vein utilizing the Seldinger technique. The left coronary artery ?was injected utilizing a 6Fr EBU 3.5 catheter. A 5Fr Pacel Flow Directed ?Pacing Cat lead was placed for a temporary pacing lead. Coronary stent ?insertion was performed and the equipment utilized will be described in ?the intervention summary section. 7,000 units of heparin were ?administered. A total of 100cc of Omnipaque were opened, 90cc of ?Omnipaque were administered and 10cc of Omnipaque were wasted. Radiation: ?Fluoro time was 10.0 minutes, dose area product was 63.60 Gy/cm2 and air ?kerma was 636 mGY. See the case log for additional details. ?The patient received the following medications prior to and during the ?procedure: ? Unfractionated Heparin and Ticagrelor. ? Hemodynamics: ? Hemodynamic Profile: ?Profile 1 ?CO ? 7.70 ?CI ? 4.43 ?Technique ?Echo ? Stenotic Valve Data: ?Aortic Valve ?Peak Gradient - 28 ?Mean Gradient - 18 ?Area - 1.67 sq. cm. ? Hemodynamics After TAVR: ? Hemodynamic Profile: ?Profile 1 ? Coronary Angiography: ?Dominance: Right ?Left Main ? There was mild diffuse (<=25% stenosis) disease of the entire vessel ? segment of the left main artery. ?Left Anterior Descending ? There was mild diffuse (<=25% stenosis) disease of the entire vessel ? segment of the left anterior descending artery (LAD). ?Left Circumflex ? There was mild diffuse (<=25% stenosis) disease of the entire vessel ? segment of the left circumflex artery (LCX). ?Right Coronary Artery ? This vessel was not injected. ? Indication for Intervention: ?Coronary intervention was indicated for reasons stated below. The ?priority for the procedure was Urgent. The NCDR indication for the ?procedure was Other PCI Indication. LVEF within one week was 25%. Syntax ?Score was Unknown. A temporary pacemaker was inserted for pacing. ? Intervention Summary: ?Left Main Artery ? Entire Vessel Mild Diffuse (<=25% Stenosis) ? Stent insertion was performed on the mild diffuse (<=25% ? stenosis) stenosis in the entire vessel segment of the left ? main. This was a de sherwin lesion. According to the ACC/AHA ? classification system, this lesion was a type A high risk ? lesion. Management of threatened closure was the indication ? for stent insertion. This was the culprit lesion. A guidewire ? was placed across this lesion. Vessel flow pre intervention ? was ARNEL 3. Lesion length was 6mm. ? Stent insertion was accomplished through a 6 Fr. EBU 3.5 ? guide. ??A premounted 4.00 x 30 mm Hereford Bledsoe (MINNA) was ? deployed with a maximum inflation pressure of 12 atmospheres. ? The final outcome was defined as successful. There was no ? residual stenosis following this intervention. The final ARNEL ? flow was 3. ? Transcatheter Aortic Valve Replacement (TAVR): ?A transcatheter aortic valve replacement was performed. 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 The etiology of the aortic valve disease was degenerative. ?The valve morphology was tricuspid and there was trace/trivial aortic ?insufficiency at baseline. ?The procedure was performed in the hybrid cath suite. At baseline the ?mean trans-valvular gradient was 40.0 mmHg and the aortic valve area was ?0.6 sq.cm. The calculated STS risk score was 30.1%. A uprzo-ip-ogivx ?procedure was performed on the pre-existing bioprosthetic stented ?prosthesis. The priority of the coosg-rs-ysgzi procedure was Elective. ?The procedure was performed under Moderate sedation performed by Lynda Ramires ?Adair Mcgowan (see anesthesia report for additional details). Alirio Powell ?Adair Hudson participated in the case (see Cardiac Surgery report for ?additional details). ?The TAVR sheath was a 14 Fr Corona eSheath Introducer and the access ?site was femoral. Rapid ventricular pacing was performed. ?An Corona Lai 3 Ultra RESILIA 23 mm THV (s/o=[id number]) transcatheter ?valve was inserted using standard technique. ?The post procedure mean trans-valvular gradient was 18.0 mmHg by ?hemodynamic measurement. A post procedure transthoracic echocardiogram ?was performed. The mean trans-TAVR valve gradient was 18.0 mmHg and the ?valve area was 1.6 sq.cm. There was residual aortic insufficiency as ?assessed by echo-TTE. ?The TAVR procedure was successful. ? Vascular Access: ?Vascular Access Angiogram: ? A selective angiogram at the left femoral artery revealed no ? significant obstructive disease. ? A selective angiogram at the right femoral artery revealed no ? significant obstructive disease. ?Vascular Ultrasound: ? Ultrasound of the right femoral artery was used to guide access and ? showed vessel patent with mild disease. ?Vascular Access Management: ? Manual Compression of the left femoral artery access site was ? performed. ? Manual Compression of the left femoral vein access site was ? performed. ? A 6 Fr Perclose was deployed at the right femoral artery access ? site. This device was successful. Manual Compression of the right ? femoral artery access site was performed. ? RFA 8Fr AngioSeal deployed to RFA as well. ? Point of Care Testing: ?ABG: ? Arterial Blood gasses were performed using the I-Stat analyzer at ? 08:10: pH: 7.27, pCO2: 36.7, pO2: 29.0, sPO2: 47%, HCO3: 16 on FIO2: ? simple mask. ? Arterial Blood gasses were performed using the I-Stat analyzer at ? 08:50: pH: 7.20, pCO2: 42.4, pO2: 260.0, sPO2: 100%, HCO3: 16 on ? FIO2: intubated. ?I-Stat: ? I-Stat was performed using the I-Stat analyzer at 08:10: Na+: 123, ? K+: 4.0, iCa++: 1.12, Hct: 27%, Hb: 9.2. ? I-Stat was performed using the I-Stat analyzer at 08:50: Na+: 129, ? K+: 3.8, iCa++: 1.12, Hct: 23%, Hb: 7.8. ? Dual Antiplatelet (DAPT) Recommendations: ?Patient was not on a P2Y12 inhibitor prior to nor was it given in the ?blood bank laboratory technologist. ?Recommended anti-platelet/anti-thrombotic regimen: ?Continue aspirin 81 mg daily for indefinitely. ?These recommendations are made at the time of the intervention. Patient ?and provider preferences or a changing clinical situation may require ?modification of this regimen. Consult [facility] for ?questions. ? Conclusions: ?* Nonobstructive disease of the LM, LAD and LCX ?* No evidence of significant aortic stenosis ?* Successful stent insertion of the entire vessel LM lesion ?* Successful Transcatheter Aortic Valve Replacement ?* See Dual Antiplatelet (DAPT) Recommendations above ? Complications/Events: ?During this case, the patient required cardiopulmonary resuscitation ?after the procedure was initiated. She had severe hypotension requiring ?vasopressors. The patient also had respiratory failure requiring ?endotracheal intubation. ? Post Procedure Fluid Recommendations: ?IV fluid at 224 mL/hr for 4 hours for a total of 896 mL. These ?recommendations are made at the time of the procedure. Patient and ?provider preferences or a changing clinical situation may require ?modification of this regimen. ? Comments: ?Successful right transfemoral TAVR Ipeye-ax-Koxms with a 23 mm Lai 3 ?THV. ??We selected a 23 mm S3U valve instead of a 26 mm sizing due to the ?borderline VTC distance for both the right and left coronary arteries. ?We performed left coronary 'protection' for the TAVR for the ?aforementioned reason, and ultimately deployed a prepositioned stent from ?left main to LAD using a 4.0 x 30 mm Resolute MINNA. ??While there was no ?coronary occlusion post TAVR, the prepositioned stent could not be safely ?pulled into the guide post valve deployment and was therefore deployed. ?Completion angiography demonstrated a satisfactory result with ARNEL-3 ?flow and no residual dissection or perforation. Immediately post-valve ?deployment, we had to administer a brief set of chest compressions to ?help circulate central epinephrine., given her hypotension, severely ?depressed LVEF, and low cardiac reserve. ??Ultimately, we were able to ?restore a perfusing rhythm without needing mechanical circulatory ?support. ??The patient was intubated afterwards due to agitation and ?hypoxia, as well as for critical care recovery plans. ?The attending physician was present for the entire procedure. ?Dr. Antelmo Sharma M.D. performed the coronary angiography, left heart ?catheterization, stent insertion-coronary, access site angiography, ?temporary pacemaker in blood bank laboratory technologist, intubation-non cath physician, vascular ?closure device, transthoracic echo ??and TAVR. Dr. Alirio Hudson M.D. ?performed the left heart catheterization, access site angiography, ?temporary pacemaker in blood bank laboratory technologist, vascular closure device, transthoracic ?echo , TAVR and CPR during cath. Dr. Lynda Mcgowan M.D. performed the ABG, ?anesthesia and intubation-non cath physician. ? Antelmo Sharma M.D. ? Electronically Signed by: Antelmo Sharma M.D. ? Report Finalized: 05/12/2023 ??14:31 ? Report Last Ammended: 07/01/2023 ??11:30 ? Procedure Note Antelmo Sharma MD - 07/01/2023 [facility] Cardiac Catheterization/Intervention Report Patient Name: Purnima Thacker Procedure Date: 05/12/2023 A #: [id number] Primary Physician: Antelmo Sharma Case #: [id number] File Name: [id number] Catheterization Order Number: [id number] [facility] FinalReport [place], [place] Patient Name: Purnima Thacker ID#:[id number] :1955 Procedure Date: May 12, 2023 Case #: [id number] Room: 6 Case Physicians: Antelmo Sharma M.D. Start: 08:03 Alirio Hudson M.D. Admission:05/08/2023 Lynda Mcgowan M.D. Discharge:05/22/2023 Fellow: Rebekah Tejeda M.D. Referring Physician: Mario Alberto Chin M.D. Procedures: * Coronary Angiography * Left Heart Catheterization * Coronary Stent Insertion * Transcatheter Aortic Valve Replacement * Vascular Closure Device Deployment * Temporary Pacemaker Insertion In Outdoor Recreation Specialist * Endotracheal Intubation By Non-Cath Physician * Cardiopulmonary Resuscitation * Access Site Angiography * Anesthesia * Arterial Blood Gases * Transthoracic Echo During Cath History Purnima Thacker is a 67 year old woman. She has hypertension and a family history of coronary artery disease. The patient's smokingstatus is Never. She has hypercholesterolemia managed with lipid therapy.The patient was in cardiogenic shock prior to the procedure. She has a history of an ejection fraction less than or equal to 35%. Thepatient has a history of CHF. The CHF is NYHA Functional Class IV, is newly diagnosed and is classified as Systolic. The patient has a historyof a prior aortic valve replacement with a biological prosthesis. Sulema has a total of one aortic valve surgery. Prior to the initiation of this procedure, the patient was designated as ASA Class IV. The CSHAclinical frailty scale is 4: Vulnerable. Diagnostic Tests: Prior Coronary Angiography: Prior coronary angiography was performed on 06/03/2016 andshowed no CAD. LV ejection fraction within 6 months is 53%. Electrocardiography: EKG was assessed by ECG. EKG was Abnormal. EKG showed other abnormality. Medications Prior to Procedure: Aspirin, Angiotensin II Receptor Palak, Calcium ChannelBlocking Agent and Statin. Indications for Diagnostic Cath: The priority of the diagnostic procedure was Urgent. Chest painsymptom assessment was: Non-anginal Chest Pain. One of the indications forcath is valvular heart disease. The patient has Severe aortic stenosis.This patient had cardiovascular instability due to cardiogenic shock. Technique: A 14Fr sheath was inserted in the right femoral artery utilizing the Seldinger technique. A 6Fr sheath was inserted in the left femoralartery utilizing the Seldinger technique. A 6Fr sheath was inserted in theleft femoral vein utilizing the Seldinger technique. The left coronaryartery was injected utilizing a 6Fr EBU 3.5 catheter. A 5Fr Pacel FlowDirected Pacing Cat lead was placed for a temporary pacing lead. Coronarystent insertion was performed and the equipment utilized will be describedin the intervention summary section. 7,000 units of heparin were administered. A total of 100cc of Omnipaque were opened, 90cc of Omnipaque were administered and 10cc of Omnipaque were wasted.Radiation: Fluoro time was 10.0 minutes, dose area product was 63.60 Gy/cm2 andair kerma was 636 mGY. See the case log for additional details. The patient received the following medications prior to and duringthe procedure: Unfractionated Heparin and Ticagrelor. Hemodynamics: Hemodynamic Profile: Profile 1 CO 7.70 CI 4.43 Technique Echo Stenotic Valve Data: Aortic Valve Peak Gradient - 28 Mean Gradient - 18 Area - 1.67 sq. cm. Hemodynamics After TAVR: Hemodynamic Profile: Profile 1 Coronary Angiography: Dominance: Right Left Main There was mild diffuse (<=25% stenosis) disease of the entirevessel segment of the left main artery. Left Anterior Descending There was mild diffuse (<=25% stenosis) disease of the entirevessel segment of the left anterior descending artery (LAD). Left Circumflex There was mild diffuse (<=25% stenosis) disease of the entirevessel segment of the left circumflex artery (LCX). Right Coronary Artery This vessel was not injected. Indication for Intervention: Coronary intervention was indicated for reasons stated below. The priority for the procedure was Urgent. The NCDR indication for the procedure was Other PCI Indication. LVEF within one week was 25%.Syntax Score was Unknown. A temporary pacemaker was inserted for pacing. Intervention Summary: Left Main Artery Entire Vessel Mild Diffuse (<=25% Stenosis) Stent insertion was performed on the mild diffuse (<=25% stenosis) stenosis in the entire vessel segment of theleft main. This was a de sherwin lesion. According to the ACC/AHA classification system, this lesion was a type A high risk lesion. Management of threatened closure was theindication for stent insertion. This was the culprit lesion. Aguidewire was placed across this lesion. Vessel flow preintervention was ARNEL 3. Lesion length was 6mm. Stent insertion was accomplished through a 6 Fr. EBU 3.5 guide. A premounted 4.00 x 30 mm Hereford Bledsoe (MINNA) was deployed with a maximum inflation pressure of 12atmospheres. The final outcome was defined as successful. There was no residual stenosis following this intervention. The finalTIMI flow was 3. Transcatheter Aortic Valve Replacement (TAVR): A transcatheter aortic valve replacement was performed. 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 The etiology of the aortic valve disease wasdegenerative. The valve morphology was tricuspid and there was trace/trivialaortic insufficiency at baseline. The procedure was performed in the hybrid cath suite. At baselinethe mean trans-valvular gradient was 40.0 mmHg and the aortic valve areawas 0.6 sq.cm. The calculated STS risk score was 30.1%. A cxcju-ii-kevir procedure was performed on the pre-existing bioprosthetic stented prosthesis. The priority of the xoeij-cw-bgkeu procedure wasElective. The procedure was performed under Moderate sedation performed byLynda Mcgowan M.D. (see anesthesia report for additional details). Aliiro Hudson M.D. participated in the case (see Cardiac Surgery reportfor additional details). The TAVR sheath was a 14 Fr Corona eSheath Introducer and theaccess site was femoral. Rapid ventricular pacing was performed. An Corona Lai 3 Ultra RESILIA 23 mm THV ([id number]/e=[id number])transcatheter valve was inserted using standard technique. The post procedure mean trans-valvular gradient was 18.0 mmHg by hemodynamic measurement. A post procedure transthoracicechocardiogram was performed. The mean trans-TAVR valve gradient was 18.0 mmHg andthe valve area was 1.6 sq.cm. There was residual aortic insufficiency as assessed by echo-TTE. The TAVR procedure was successful. Vascular Access: Vascular Access Angiogram: A selective angiogram at the left femoral artery revealed no significant obstructive disease. A selective angiogram at the right femoral artery revealed no significant obstructive disease. Vascular Ultrasound: Ultrasound of the right femoral artery was used to guide accessand showed vessel patent with mild disease. Vascular Access Management: Manual Compression of the left femoral artery access site was performed. Manual Compression of the left femoral vein access site was performed. A 6 Fr Perclose was deployed at the right femoral artery access site. This device was successful. Manual Compression of theright femoral artery access site was performed. RFA 8Fr AngioSeal deployed to RFA as well. Point of Care Testing: ABG: Arterial Blood gasses were performed using the I-Stat analyzerat 08:10: pH: 7.27, pCO2: 36.7, pO2: 29.0, sPO2: 47%, HCO3: 16 onFIO2: simple mask. Arterial Blood gasses were performed using the I-Stat analyzerat 08:50: pH: 7.20, pCO2: 42.4, pO2: 260.0, sPO2: 100%, HCO3: 16on FIO2: intubated. I-Stat: I-Stat was performed using the I-Stat analyzer at 08:10: Na+:123, K+: 4.0, iCa++: 1.12, Hct: 27%, Hb: 9.2. I-Stat was performed using the I-Stat analyzer at 08:50: Na+:129, K+: 3.8, iCa++: 1.12, Hct: 23%, Hb: 7.8. Dual Antiplatelet (DAPT) Recommendations: Patient was not on a P2Y12 inhibitor prior to nor was it given inthe blood bank laboratory technologist. Recommended anti-platelet/anti-thrombotic regimen: Continue aspirin 81 mg daily for indefinitely. These recommendations are made at the time of the intervention.Patient and provider preferences or a changing clinical situation mayrequire modification of this regimen. Consult [facility] [place]iologyfor questions. Conclusions: * Nonobstructive disease of the LM, LAD and LCX * No evidence of significant aortic stenosis * Successful stent insertion of the entire vessel LM lesion * Successful Transcatheter Aortic Valve Replacement * See Dual Antiplatelet (DAPT) Recommendations above Complications/Events: During this case, the patient required cardiopulmonary resuscitation after the procedure was initiated. She had severe hypotensionrequiring vasopressors. The patient also had respiratory failure requiring endotracheal intubation. Post Procedure Fluid Recommendations: IV fluid at 224 mL/hr for 4 hours for a total of 896 mL. These recommendations are made at the time of the procedure. Patient and provider preferences or a changing clinical situation may require modification of this regimen. Comments: Successful right transfemoral TAVR Mtccg-tq-Ysymm with a 23 mmSapien 3 THV. We selected a 23 mm S3U valve instead of a 26 mm sizing due tothe borderline VTC distance for both the right and left coronaryarteries. We performed left coronary 'protection' for the TAVR for the aforementioned reason, and ultimately deployed a prepositioned stentfrom left main to LAD using a 4.0 x 30 mm Resolute MINNA. While there wasno coronary occlusion post TAVR, the prepositioned stent could not besafely pulled into the guide post valve deployment and was thereforedeployed. Completion angiography demonstrated a satisfactory result withTIMI-3 flow and no residual dissection or perforation. Immediatelypost-valve deployment, we had to administer a brief set of chest compressionsto help circulate central epinephrine., given her hypotension, severely depressed LVEF, and low cardiac reserve. Ultimately, we were ableto restore a perfusing rhythm without needing mechanical circulatory support. The patient was intubated afterwards due to agitation and hypoxia, as well as for critical care recovery plans. The attending physician was present for the entire procedure. Dr. Antelmo Sharma M.D. performed the coronary angiography, leftheart catheterization, stent insertion-coronary, access site angiography, temporary pacemaker in blood bank laboratory technologist, intubation-non cath physician,vascular closure device, transthoracic echo and TAVR. Dr. Alirio Hudson M.D. performed the left heart catheterization, access site angiography, temporary pacemaker in blood bank laboratory technologist, vascular closure device,transthoracic echo , TAVR and CPR during cath. Dr. Lynda Mcgowan M.D. performed theABG, anesthesia and intubation-non cath physician. Antelmo Sharma M.D. Electronically Signed by: Antelmo Sharma M.D. Report Finalized: 05/12/2023 14:31 Report Last Ammended: 07/01/2023 11:30 Antelmo Sharma MD CARDIAC CATH ORDERAB LES * (ABNORMAL) Point of Care Blood Gas Historical (05/12/2023 8:50 AM EDT) POC pH 7.20(Crit ical) 7.35 - 7.45 [facility] Comment:Critical value OK, C C Lab. POC PCO2 42 35 - 45 mmHg [facility] POC PO2 260(H) 85 - 104 mmHg [facility] POC Base Excess -11.0(L) -3.0 - 3.0 mmol/L [facility] POC HCO3 16.7(L) 20.0 - 26.0 mmol/L [facility] POC Sodium 129(L) 135 - 145 mmol/L [facility] POC Potassium 3.8 3.5 - 5.0 mmol/L [facility] POC Ionized Ca 1.12(L) 1.15 - 1.33 mmol/L [facility] POC Hematocrit 23.0(L) 34.0 - 45.0 % [facility] POC Calc Hgb 7.8(L) 11.2 - 15.7 g/dL [facility] Comment:The calculation of h emoglobin from hematocrit assumes a normal MCHC. POC Bgas Loc CC Lab [facility] Blood 05/12/2023 8:50 AM EDT 05/13/2023 12:00 PM EDT Alirio Hudson MD CHEMISTRY ORDERABLE S Performing Organization Address City/State/[facility] Co de Phone Number [facility] [place] [address] * (ABNORMAL) Point of Care Blood Gas Historical (05/12/2023 8:10 AM EDT) POC pH 7.27(Crit ical) 7.35 - 7.45 [facility] Comment:Critical value Yamel KRAUSE C Lab. POC PCO2 37 35 - 45 mmHg [facility] POC PO2 29(Critic al) 85 - 104 mmHg [facility] Comment:Critical value OK C C Lab. POC Base Excess -10.0(L) -3.0 - 3.0 mmol/L [facility] POC HCO3 16.7(L) 20.0 - 26.0 mmol/L [facility] POC Sodium 123(L) 135 - 145 mmol/L [facility] POC Potassium 4.0 3.5 - 5.0 mmol/L [facility] POC Ionized Ca 1.12(L) 1.15 - 1.33 mmol/L [facility] POC Hematocrit 27.0(L) 34.0 - 45.0 % [facility] POC Calc Hgb 9.2(L) 11.2 - 15.7 g/dL [facility] Comment:The calculation of h emoglobin from hematocrit assumes a normal MCHC. POC Bgas Loc CC Lab [facility] Blood 05/12/2023 8:10 AM EDT 05/13/2023 12:00 PM EDT Alirio Hudson MD CHEMISTRY ORDERABLE S Performing Organization Address [facility] Co de Phone Number [facility] [place] [address] * (ABNORMAL) Lactate, whole blood, send to lab ([facility] (05/12/2023 7:00 AM EDT) Lactate WB 2.4(H) 0.5 - 2.2 mmol/L [facility] Blood 05/12/2023 7:00 AM EDT 05/12/2023 7:09 AM EDT Narrative Resulting Agency Comment Spec In Lab Radha Hollins MD CHEMISTRY ORDERABL ES Performing Organization Address [facility] Co de Phone Number [facility] [place] [address] * (ABNORMAL) Comprehensive metabolic panel (non-fasting) (05/12/2023 6:00 AM EDT) Glucose Lvl 167 65 - 199 mg/dL [facility] Comment:Diabetes: >=200 mg/d L plus symptoms BUN 67(H) 8 - 18 mg/dL [facility] Creatinine 2.01(H) 0.70 - 1.20 mg/dL [facility] Sodium 131(L) 135 - 145 mmol/L [facility] Potassium 4.3 3.5 - 5.0 mmol/L [facility] Comment: Please note: ??Patients with WBC >100,000 may have falsely elevated Potassium levels. ??For accurate Potassium quantification in these patients send serum separator tube (gold top) for subsequent determinations. ??Contact the Clinical Chemistry Laboratory if there are any questions. Chloride 97(L) 98 - 107 mmol/L [facility] CO2 14(L) 22 - 31 mmol/L [facility] Anion Gap 20(H) 5 - 15 mmol/L [facility] Calcium 8.6 8.5 - 10.5 mg/dL [facility] Total Protein 6.3 6.1 - 8.0 g/dL [facility] Albumin 3.5 3.2 - 5.2 g/dL [facility] AST 1,435(H) 0 - 30 unit/L [facility] ALT 1,174(H) 0 - 30 unit/L [facility] Alk Phos 100 35 - 105 unit/L [facility] Total Bilirubin 0.9 0.2 - 1.3 mg/dL [facility] Estimated GFR 27(L) >=60 mL/min/1. 73 m?? [facility] [...] and symptoms in addition to eGFR. Blood 05/12/2023 6:00 AM EDT 05/12/2023 6:05 AM EDT Narrative Resulting Agency Comment Spec In Lab Radha Hollins MD CHEMISTRY ORDERABL ES [facility] [place] [address] * (ABNORMAL) Coox2 (05/12/2023 5:08 AM EDT) pO2 Coox 24 mmHg [facility] Hgb Blood Gas 10.4(L) 11.7 - 15.5 g/dL [facility] O2HB Coox 30.7 % [facility] COHB Coox 0.3 % [facility] Comment: Nonsmokers: 0.5-1.5% COHB Smokers: Variable, but usually less than 10% Toxic: 20-30% COHB Lethal: Greater than 60% COHB METHB Coox 0.8 <=1.5 % [facility] Source Coox Mixed Venous [facility] Blood 05/12/2023 5:08 AM EDT 05/12/2023 5:08 AM EDT Radha Hollins MD CHEMISTRY ORDERABL ES Performing Organization Address [facility] de Phone Number [facility] [place] [address] * (ABNORMAL) Coox2 (05/12/2023 3:21 AM EDT) pO2 Coox 25 mmHg [facility] Hgb Blood Gas 10.8(L) 11.7 - 15.5 g/dL [facility] O2HB Coox 32.7 % [facility] COHB Coox 0.3 % [facility] Comment: Nonsmokers: 0.5-1.5% COHB Smokers: Variable, but usually less than 10% Toxic: 20-30% COHB Lethal: Greater than 60% COHB METHB Coox 0.7 <=1.5 % [facility] Source Coox Mixed Venous [facility] Blood 05/12/2023 3:21 AM EDT 05/12/2023 3:21 AM EDT Radha Hollins MD CHEMISTRY ORDERABL ES Performing Organization Address [facility] de Phone Number [facility] [place] [address] * (ABNORMAL) BLOOD GAS 2 ARTERIAL (05/12/2023 3:18 AM EDT) pH Art 7.34(L) 7.35 - 7.45 [facility] pCO2 Art 30(L) 35 - 45 mmHg [facility] pO2 Art 72(L) 85 - 104 mmHg [facility] HCO3 Art 16.0(L) 20.0 - 26.0 mmol/L [facility] BE Art -9.8(L) -3.0 - 3.0 mmol/L [facility] Hgb Blood Gas 11.0(L) 11.7 - 15.5 g/dL [facility] O2HB Art 89.8(L) 94.0 - 97.0 % [facility] COHB Art 0.3 % [facility] Comment: Nonsmokers: 0.5-1.5% COHB Smokers: Variable, but usually less than 10% Toxic: 20-30% COHB Lethal: Greater than 60% COHB METHB Art 0.7 <=1.5 % [facility] Na Whole Blood 131(L) 135 - 145 mmol/L [facility] K Whole Blood 4.2 3.5 - 5.0 mmol/L [facility] Comment: Please note: Patients with WBC >100,000 may have falsely elevated Potassium levels. Contact the Clinical Chemistry Laboratory if there are any questions. ICa Whole Blood 1.12(L) 1.15 - 1.33 mmol/L [facility] Comment: Note: ??Total bilirubin higher than 20 mg/dL may lead to falsely low ionized calcium. CL Whole Blood 100 98 - 107 mmol/L [facility] Gluc Whole Bld 160 65 - 199 mg/dL [facility] Comment:Diabetes: >=200 mg/d L plus symptoms. Lactate WB 2.7(H) 0.5 - 2.2 mmol/L [facility] Flow Art 5.0 LPM [facility] Blood 05/12/2023 3:18 AM EDT 05/12/2023 3:18 AM EDT Radha Hollins MD CHEMISTRY ORDERABL ES Performing Organization Address [facility] de Phone Number [facility] [place] [address] * (ABNORMAL) Coox2 (05/12/2023 1:14 AM EDT) pO2 Coox 28 mmHg [facility] Hgb Blood Gas 10.9(L) 11.7 - 15.5 g/dL [facility] O2HB Coox 37.3 % [facility] COHB Coox 0.3 % [facility] Comment: Nonsmokers: 0.5-1.5% COHB Smokers: Variable, but usually less than 10% Toxic: 20-30% COHB Lethal: Greater than 60% COHB METHB Coox 0.5 <=1.5 % [facility] Source Coox Mixed Venous [facility] Blood 05/12/2023 1:14 AM EDT 05/12/2023 1:14 AM EDT Radha Hollins MD CHEMISTRY ORDERABL ES Performing Organization Address [facility] de Phone Number [facility] [place] [address] * (ABNORMAL) BLOOD GAS 2 ARTERIAL (05/12/2023 1:06 AM EDT) pH Art 7.34(L) 7.35 - 7.45 [facility] pCO2 Art 30(L) 35 - 45 mmHg [facility] pO2 Art 81(L) 85 - 104 mmHg [facility] HCO3 Art 15.7(L) 20.0 - 26.0 mmol/L [facility] BE Art -10.1(L) -3.0 - 3.0 mmol/L [facility] Hgb Blood Gas 11.0(L) 11.7 - 15.5 g/dL [facility] O2HB Art 92.3(L) 94.0 - 97.0 % [facility] COHB Art 0.2 % [facility] Comment: Nonsmokers: 0.5-1.5% COHB Smokers: Variable, but usually less than 10% Toxic: 20-30% COHB Lethal: Greater than 60% COHB METHB Art 0.6 <=1.5 % [facility] Na Whole Blood 131(L) 135 - 145 mmol/L [facility] LABORATORY K Whole Blood 4.2 3.5 - 5.0 mmol/L [facility] Comment: Please note: Patients with WBC >100,000 may have falsely elevated Potassium levels. Contact the Clinical Chemistry Laboratory if there are any questions. ICa Whole Blood 1.13(L) 1.15 - 1.33 mmol/L [facility] Comment: Note: ??Total bilirubin higher than 20 mg/dL may lead to falsely low ionized calcium. CL Whole Blood 99 98 - 107 mmol/L [facility] Gluc Whole Bld 132 65 - 199 mg/dL [facility] Comment:Diabetes: >=200 mg/d L plus symptoms. Lactate WB 2.7(H) 0.5 - 2.2 mmol/L [facility] Flow Art 5.0 LPM [facility] Blood 05/12/2023 1:06 AM EDT 05/12/2023 1:06 AM EDT Radha Hollins MD CHEMISTRY ORDERABL ES [facility] [place] [address] * (ABNORMAL) Differential, Automated (05/12/2023 1:05 AM EDT) Neutrophils % 83.3 % [facility] Neutr Abs (ANC) 7.49(H) 1.70 - 6.10 x10(3)/mc L [facility] Lymphocytes % 7.1 % [facility] Lymphocytes Abs 0.6(L) 0.9 - 3.2 x10(3)/[facility]OR[facility] Monocytes % 8.9 % [facility] Monocyte Abs 0.8 0.3 - 0.9 x10(3)/[facility]OR[facility]ORY Eosinophils % 0.0 % [facility] Eosinophils Abs 0.0 0.0 - 0.4 x10(3)/[facility]OR[facility] Basophils % 0.1 % [facility] Basophils Abs 0.0 0.0 - 0.1 x10(3)/[facility]OR[facility] Immature Gran % 0.60 % [facility] Comment: Immature granulocytes(IG's)percentage and absolute count will include metamyelocytes, myelocytes, and promyelocytes. Blood smears from CBCs yielding IG's will be scanned manually for concordance. If this scan disagrees with the automated IG or if promyelocytes are noted, a manual differential will be performed. Amanda Gran Abs 0.05(H) 0.00 - 0.04 x10(3)/[facility] Blood 05/12/2023 1:05 AM EDT 05/12/2023 1:15 AM EDT Narrative Resulting Agency Comment Spec In Lab Gianni Fletcher MD HEMATOLOGY ORDERABLE S [facility] [place] [address] * (ABNORMAL) Hemogram (05/12/2023 1:05 AM EDT) WBC 9.0 4.0 - 9.5 x10(3)/[facility] RBC 3.01(L) 4.00 - 5.21 x10(6)/[facility] Hemoglobin 9.8(L) 11.7 - 15.5 g/dL [facility] Hematocrit 28.7(L) 35.7 - 45.8 % [facility] MCV 95.3(H) 82.6 - 94.4 fL [facility] MCH 32.6(H) 27.1 - 32.0 pg [facility] MCHC 34.1 31.7 - 35.0 g/dL [facility] Platelets 186 145 - 357 x10(3)/[facility] LABOR[facility] RDWSD 43.7 37.0 - 46.0 [facility] RDWCV 12.7 11.5 - 14.1 % [facility] MPV 10.3 7.6 - 12.9 [facility] nRBC % Auto 0.0 % [facility] nRBC Abs Auto 0.000 0.000 - 0.000 x10(3)/[facility] Blood 05/12/2023 1:05 AM EDT 05/12/2023 1:15 AM EDT Narrative Resulting Agency Comment Spec In Lab Gianni Fletcher MD HEMATOLOGY ORDERABLE S [facility] [place] [address] * (ABNORMAL) Comprehensive metabolic panel (non-fasting) (05/12/2023 1:05 AM EDT) Glucose Lvl 141 65 - 199 mg/dL [facility] Comment:Diabetes: >=200 mg/d L plus symptoms BUN 63(H) 8 - 18 mg/dL [facility] Creatinine 1.86(H) 0.70 - 1.20 mg/dL [facility] Sodium 131(L) 135 - 145 mmol/L [facility] Potassium 4.4 3.5 - 5.0 mmol/L [facility] Comment: Please note: ??Patients with WBC >100,000 may have falsely elevated Potassium levels. ??For accurate Potassium quantification in these patients send serum separator tube (gold top) for subsequent determinations. ??Contact the Clinical Chemistry Laboratory if there are any questions. Chloride 96(L) 98 - 107 mmol/L [facility] CO2 14(L) 22 - 31 mmol/L [facility] Anion Gap 21(H) 5 - 15 mmol/L [facility] Calcium 9.0 8.5 - 10.5 mg/dL [facility] Total Protein 6.6 6.1 - 8.0 g/dL [facility] Albumin 3.9 3.2 - 5.2 g/dL [facility] AST 1,227(H) 0 - 30 unit/L [facility] ALT 1,097(H) 0 - 30 unit/L [facility] Alk Phos 108(H) 35 - 105 unit/L [facility] Total Bilirubin 1.0 0.2 - 1.3 mg/dL [facility] Estimated GFR 29(L) >=60 mL/min/1. 73 m?? [facility] [...] and symptoms in addition to eGFR. Blood 05/12/2023 1:05 AM EDT 05/12/2023 1:15 AM EDT Narrative Resulting Agency Comment Spec In Lab Radha Hollins MD CHEMISTRY ORDERABL ES [facility] [place] [address] * XR Chest One View (05/12/2023 1:00 AM EDT) Anatomical Region Laterality Modality Chest N/A Digital Radiogra phy Impressions 05/12/2023 3:16 AM EDT * ??Right IJV approach pulmonary arterial catheter terminates in the right interlobar pulmonary artery near its bifurcation. Please retract 5 to 7 cm. * ??Increased pulmonary vascular congestion, interstitial/alveolar edema, and medium-sized bilateral pleural effusions. I, Will Rowe, discussed the above findings with Dr. Klaudia Reid on 05/12/2023 at 3:15 AM and verified understanding. Thank you for letting us participate in the care of this patient. ??If you are a health care provider and have any questions regarding this report, please contact the number below. ??For patients who have questions please contact the health memory care program resident that requested your imaging first. ? Narrative 05/12/2023 3:16 AM EDT EXAMINATION: XR CHEST ONE VIEW CLINICAL HISTORY: post line placem,ent TECHNIQUE: 1 view of the chest COMPARISON: Chest x-ray 05/11/2023 2342 hours FINDINGS: Right IJV approach pulmonary arterial catheter terminates in the right interlobar pulmonary artery near its bifurcation. Aortic valve prosthesis in unchanged position. Intact sternal cerclage wires. Trachea and mainstem bronchi are within normal limits. Partially obscured cardiomediastinal silhouette. Increased pulmonary vascular congestion, interstitial edema,, hazy opacification of bilateral mid/lower lungs, and medium-sized bilateral pleural effusions. Unchanged osseous structures. Cholecystectomy clips. Procedure Note Argelia Rowe MD - 05/12/2023 EXAMINATION: XR CHEST ONE VIEW CLINICAL HISTORY: post line placem,ent TECHNIQUE: 1 view of the chest COMPARISON: Chest x-ray 05/11/2023 2342 hours FINDINGS: Right IJV approach pulmonary arterial catheter terminates in the right interlobar pulmonary artery near its bifurcation. Aortic valve prosthesisin unchanged position. Intact sternal cerclage wires. Trachea and mainstem bronchi are within normal limits. Partiallyobscured cardiomediastinal silhouette. Increased pulmonary vascular congestion, interstitial edema,, hazy opacification of bilateral mid/lower lungs,and medium-sized bilateral pleural effusions. Unchanged osseous structures. Cholecystectomy clips. IMPRESSION * Right IJV approach pulmonary arterial catheter terminates in theright interlobar pulmonary artery near its bifurcation. Please retract 5 to 7cm. * Increased pulmonary vascular congestion, interstitial/alveolar edema,and medium-sized bilateral pleural effusions. I, Will Rowe, discussed the above findings with Dr. Klaudia Malagon on 05/12/2023 at 3:15 AM and verified understanding. Thank you for letting us participate in the care of this patient. If youare a health care provider and have any questions regarding this report,please contact the number below. For patients who have questions please contactthe health memory care program resident that requested your imaging first. Radha Hollins MD IMG DX ORDERABLES * (ABNORMAL) Coox2 (05/12/2023 12:30 AM EDT) pO2 Coox 22 mmHg [facility] Hgb Blood Gas 10.9(L) 11.7 - 15.5 g/dL [facility] O2HB Coox 25.1 % [facility] COHB Coox 0.3 % [facility] Comment: Nonsmokers: 0.5-1.5% COHB Smokers: Variable, but usually less than 10% Toxic: 20-30% COHB Lethal: Greater than 60% COHB METHB Coox 1.4 <=1.5 % [facility] Source Coox Mixed Venous [facility] Blood 05/12/2023 12:3 0 AM EDT 05/12/2023 12:30 AM EDT Radha Hollins MD CHEMISTRY ORDERABL ES [facility] [place] [address] * XR Chest One View (05/11/2023 11:45 PM EDT) Anatomical Region Laterality Modality Chest N/A Digital Radiogra phy Impressions 05/11/2023 11:57 PM EDT * ??Unchanged mild cardiomegaly. * ??Improved pulmonary vascular congestion. * ??Similar small bilateral pleural effusions and subjacent atelectasis which limits evaluation of the underlying parenchyma for any nodules or infiltrates. Thank you for letting us participate in the care of this patient. ??If you are a health care provider and have any questions regarding this report, please contact the number below. ??For patients who have questions please contact the health memory care program resident that requested your imaging first. ? Narrative 05/11/2023 11:57 PM EDT EXAMINATION: XR CHEST ONE VIEW CLINICAL HISTORY: attempted Rt heart cath TECHNIQUE: 1 view of the chest COMPARISON: Chest x-ray 05/10/2023. FINDINGS: Trachea and mainstem bronchi are within normal limits. Unchanged mild cardiomegaly.. Aortic valve prosthesis. Improved mild pulmonary vascular congestion. Similar small bilateral pleural effusions and bibasilar airspace opacities. No pneumothorax. Unchanged osseous structures and sternal cerclage wires. Normal upper abdomen. Procedure Note Argelia Rowe MD - 05/12/2023 EXAMINATION: XR CHEST ONE VIEW CLINICAL HISTORY: attempted Rt heart cath TECHNIQUE: 1 view of the chest COMPARISON: Chest x-ray 05/10/2023. FINDINGS: Trachea and mainstem bronchi are within normal limits. Unchanged mild cardiomegaly.. Aortic valve prosthesis. Improved mild pulmonary vascular congestion. Similar small bilateral pleural effusions and bibasilarairspace opacities. No pneumothorax. Unchanged osseous structures and sternalcerclage wires. Normal upper abdomen. IMPRESSION * Unchanged mild cardiomegaly. * Improved pulmonary vascular congestion. * Similar small bilateral pleural effusions and subjacent atelectasiswhich limits evaluation of the underlying parenchyma for any nodules orinfiltrates. Thank you for letting us participate in the care of this patient. If youare a health care provider and have any questions regarding this report,please contact the number below. For patients who have questions please contactthe health memory care program resident that requested your imaging first. Radha Hollins MD IMG DX ORDERABLES * (ABNORMAL) Lactate, whole blood, send to lab ([facility] (05/11/2023 7:40 PM EDT) Lactate WB 4.8(Critic al) 0.5 - 2.2 mmol/L [facility] Comment:Called by: NIKI, Read back by: Magdalena Baires, Date/Time:05/11/23 19:54. Blood 05/11/2023 7:40 PM EDT 05/11/2023 7:49 PM EDT Narrative Resulting Agency Comment Spec In Lab Radha Hollins MD CHEMISTRY ORDERABL ES [facility] [place] [address] * Urine culture (05/11/2023 7:22 PM EDT) Urine Culture 50,000-99,000 cfu/ml Normal mucosal herman Susceptibilit y testing not routinely performed for Coagulase Negative Staphylococcu s species and other Gram Positive organisms from urine. [facility] Clean Catch Urine 05/11/2023 7:22 PM EDT 05/11/2023 8:50 PM EDT Narrative Resulting Agency Comment Spec In Lab Brody Kaplan BUSINESS SERVICES ANALYST MICROBIOLOGY - GENE RAL ORDERABLES Performing Organization Address [facility]/ZIP Co de Phone Number [facility] [place] [address] * (ABNORMAL) Urinalysis Microscopic Exam (05/11/2023 7:22 PM EDT) RBC UA 2 0 - 4 /HPF [facility] WBC UA >100(H) 0 - 5 /HPF [facility] Bacteria UA Occasional (A) None /HPF [facility] Squam Epith UA 5(H) <=4 /HPF [facility] Hyaline Cast UA 3(H) 0 - 2 /LPF [facility] Clean Catch Urine 05/11/2023 7:22 PM EDT 05/11/2023 7:31 PM EDT Narrative Resulting Agency Comment Spec In Lab Brody Kaplan APRN URINE ORDERABLES Performing Organization Address [facility]/ZIP Co de Phone Number [facility] [place] [address] * (ABNORMAL) Urinalysis with reflex Culture (05/11/2023 7:22 PM EDT) Glucose UA Negative Negative mg/dL [facility] Protein UA Trace(A) Negative mg/dL [facility] Bilirubin UA Negative Negative mg/dL [facility] Comment: Clinical correlation required for positive Urine Bilirubin results as false positive may occur with some drugs and drug related products. If a false positive is suspected a serum total bilirubin should be considered if clinically indicated. Urobilinogen UA Normal Normal mg/dL [facility] pH UA 5.0 5.0 - 8.0 [facility] Blood UA Trace(A) Negative mg/dL [facility] Ketones UA Negative Negative mg/dL [facility] Nitrite UA Negative Negative [facility] Leukocytes UA Moderate(A) Negative mcL [facility] Appearance UA Cloudy(A) Clear [facility] Spec [place] UA >=1.030(A) 1.005 - 1.030 [facility] Color UA Yellow Yellow [facility] Culture Reflexed Yes [facility] Clean Catch Urine 05/11/2023 7:22 PM EDT 05/11/2023 7:31 PM EDT Narrative Resulting Agency Comment Spec In Lab Brody Kaplan APRN URINE ORDERABLES [facility] [place] [address] * (ABNORMAL) pro-Brain Natriuretic Peptide (05/11/2023 7:11 PM EDT) Pathologist [facility] ProBNP >35,000(H) <=124 pg/mL [facility] Blood 05/11/2023 7:11 PM EDT 05/11/2023 7:26 PM EDT Narrative Resulting Agency Comment Spec In Lab Radha Hollins MD CHEMISTRY ORDERABL ES [facility] [place] [address] * (ABNORMAL) Lactate, whole blood, send to lab ([facility] (05/11/2023 2:47 PM EDT) Lactate WB 2.9(H) 0.5 - 2.2 mmol/L [facility] Blood 05/11/2023 2:47 PM EDT 05/11/2023 2:53 PM EDT Narrative Resulting Agency Comment Spec In Lab Juan Luis Gonzalez MD CHEMISTRY ORDERABLES [facility] [place] [address] * (ABNORMAL) CT Angiogram Abdomen & Pelvis w Contrast (Generic) (05/11/2023 10:41 AM EDT) Anatomical Region Laterality Modality Abdomen, Pelvis Computed Tomogra phy Impressions 05/11/2023 2:42 PM EDT 1. ??Pre TAVR measurements as above. 2. ??Right greater than left perinephric edema. This may be age related. Correlation with urinalysis suggested to exclude urinary tract infection. Unexpected finding. Thank you for letting us participate in the care of this patient. ??If you are a health care provider and have any questions regarding this report, please contact the number below. ??For patients who have questions please contact the health memory care program resident that requested your imaging first. ? 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 95 cc Omnipaque 350 intravenous contrast. Coronal and sagittal reconstructions were generated. Three-dimensional volume reconstructions were created on an independent computer workstation. COMPARISON: None FINDINGS: VASCULAR Abdominal aorta: Normal caliber. Mild mural calcified atherosclerotic disease. No filling defect. (Minimum bidimensional) Suprarenal aorta: 15.1 x 16.8 mm Juxtarenal aorta: 13.4 x 14.6 mm Infrarenal aorta: 10.8 x 13.6 mm Degree of calcification at aortic bifurcation: Mild Branch vessels: Celiac: Mild origin calcification without stenosis SMA: No stenosis. Right renal artery: No stenosis. Left renal artery: No stenosis. MONA: No stenosis. Iliac/Femoral Arteries: (Smallest luminal diameter) Right common iliac: 8.2 mm Right external iliac: 5.2 mm Right common femoral: 5.4 mm Left common iliac: 7.4 mm Left external iliac: 4.7 mm Left common femoral: 5.3 mm Tortuosity on the right: 11 degrees/cm Tortuosity on the left: 16 degrees/cm NON-VASCULAR FINDINGS Liver: Simple hepatic cyst Bile ducts: Nondilated. Gallbladder: Absent Pancreas: Normal attenuation without ductal dilatation. Spleen: Normal. Adrenals: Normal. Kidneys: Right greater than left perinephric edema. No collecting system dilation. Symmetric nephrograms. Urinary Bladder: Normal. Lymph Nodes: No enlarged lymph nodes. Bowel: Diverticulosis without acuity. Peritoneum and retroperitoneum: No hemorrhage. No pneumoperitoneum. No fluid collection or mesenteric inflammation. Abdominal wall: Fat filled umbilical hernia. Reproductive organs: Normal uterine contours. Osseous structures: Degenerative changes without suspicious lesion. Resulting Agency Comment Unexpected Finding Antelmo Sharma MD IMG CT ORDERABLES * CT Cardiac for Morphology & Function (05/11/2023 10:41 AM EDT) Anatomical Region Laterality Modality Chest, Cardiac Computed Tomogra phy Impressions 05/11/2023 4:37 PM EDT - Bioprosthetic aortic valve that appears to be well positioned and well seated. No significant pannus. Severely calcified bioprosthetic aortic valve leaflets. AVR Ring measurements: Diameters: 23.7 mm x 22.7 mm Area: 438 mm2 Low coronary heights from base of AVR ring. - Normal thoracic aorta. ?? No acute aortopathy. - Moderately reduced LV systolic function on dynamic phase cine imaging, on qualitative analysis. - Diffuse calcification of the coronary arteries. - Trivial pericardial effusion. - Moderate left and small right pleural effusions and associated compressive atelectasis. Pulmonary edema. Thank you for letting us participate in the care of this patient. ??If you are a health care provider and have any questions regarding this report, please contact the number below. ??For patients who have questions please contact the health memory care program resident that requested your imaging first. ? Electronically signed by: Cullen Narayanan MD, [facility] ([phone]), at 05/11/2023 4:37 PM Narrative 05/11/2023 4:37 PM EDT EXAMINATION: CT CARDIAC FOR MORPHOLOGY & FUNCTION CLINICAL HISTORY: bioprosthetic aortic valve stenosis COMPARISON: None. TECHNIQUE: After time bolus, 0.625 mm thick axial contiguous sections were obtained through the heart via ECG-gated helical acquisition during intravenous administration of 95 cc Omnipaque 350. (CTA abdomen and pelvis is reported separately.) Post-processing was performed on an independent computer workstation including multiplanar MIP reconstructions. FINDINGS: Artifacts: No significant artifacts. AORTIC VALVE/TAVR PLANNING Bioprosthetic aortic valve that appears to be well positioned and well seated. No significant pannus. Imaging phase: 5-25% Calcification of leaflets: Severely calcified Leaflet motion: ??Reduced systolic leaflet excursion Aortic Valve Area by 3D-planimetry: Unable to directly measure due to stent related artifact. AVR Ring measurements: Diameters: 23.7 mm x 22.7 mm Area: 438 mm2 Circumference: 76 mm Calcification: None Sinotubular junction: Effacement: Not effaced. Diameters: 28.7 mm x 26.5 mm Area: 610 mm2 Circumference: 88 mm Calcification: Mild Aftzmpt-bn-awfpfzma height: Left: 6.2 mm Right: 5.8 mm THORACIC AORTA Description: Normal course and caliber. ??Mild diffuse atherosclerotic changes. No acute aortopathy noted. Rehab Trainer dimensions: Aortic root: 27.6 mm Max ascending aorta: 30.5 mm x 27.7 mm Suggested fluoroscopic angulation based on line extending through the nadirs of the three sinuses of Valsalva, set equidistant: ?? KAZAKH ??9 degrees; cranial 7 degrees MITRAL: Mitral annulus: Moderate mitral annular calcification. Mitral leaflets: Mild calcific changes of the mitral valve leaflets. ??Adequate diastolic leaflet excursion. OTHER STRUCTURES & FINDINGS: Chest Wall: Status post prior median sternotomy. Mediastinum/Lymph Nodes: ??Unremarkable. Pulmonary Arteries: No obvious central pulmonary thrombus; however, the study was not timed to assess for pulmonary embolism. Pulmonary Parenchyma: Mild patchy mosaic attenuation bilaterally likely representing pulmonary edema. Compressive atelectasis bilaterally secondary to pleural effusions. Airways: Unremarkable Pleura: Moderate left and small right pleural effusions. Coronary Arteries: Normal coronary artery origins. Moderate diffuse coronary artery calcification noted. ??Study was not optimized for coronary artery assessment. Myocardium: Dilated left ventricle. ??Biatrial enlargement. ??No left atrial appendage thrombus. ??On qualitative assessment, moderately reduced LV systolic function on dynamic phase cine imaging. Pericardium: ??Trivial pericardial effusion. Skeletal: ??Diffuse degenerative changes. Upper Abdomen: ??See separately dictated report on CTA Abdomen & Pelvis finding. Procedure Note Cullen Narayanan MD - 05/11/2023 EXAMINATION: CT CARDIAC FOR MORPHOLOGY & FUNCTION CLINICAL HISTORY: bioprosthetic aortic valve stenosis COMPARISON: None. TECHNIQUE: After time bolus, 0.625 mm thick axial contiguous sectionswere obtained through the heart via ECG-gated helical acquisition duringintravenous administration of 95 cc Omnipaque 350. (CTA abdomen and pelvis isreported separately.) Post-processing was performed on an independent computer workstation including multiplanar MIP reconstructions. FINDINGS: Artifacts: No significant artifacts. AORTIC VALVE/TAVR PLANNING Bioprosthetic aortic valve that appears to be well positioned and wellseated. No significant pannus. Imaging phase: 5-25% Calcification of leaflets: Severely calcified Leaflet motion: Reduced systolic leaflet excursion Aortic Valve Area by 3D-planimetry: Unable to directly measure due tostent related artifact. AVR Ring measurements: Diameters: 23.7 mm x 22.7 mm Area: 438 mm2 Circumference: 76 mm Calcification: None Sinotubular junction: Effacement: Not effaced. Diameters: 28.7 mm x 26.5 mm Area: 610 mm2 Circumference: 88 mm Calcification: Mild Lmeqdnl-ri-ftvcgris height: Left: 6.2 mm Right: 5.8 mm THORACIC AORTA Description: Normal course and caliber. Mild diffuse atheroscleroticchanges. No acute aortopathy noted. Rehab Trainer dimensions: Aortic root: 27.6 mm Max ascending aorta: 30.5 mm x 27.7 mm Suggested fluoroscopic angulation based on line extending through thenadirs of the three sinuses of Valsalva, set equidistant: KAZAKH 9 degrees; cranial 7 degrees MITRAL: Mitral annulus: Moderate mitral annular calcification. Mitral leaflets: Mild calcific changes of the mitral valve leaflets.Adequate diastolic leaflet excursion. OTHER STRUCTURES & FINDINGS: Chest Wall: Status post prior median sternotomy. Mediastinum/Lymph Nodes: Unremarkable. Pulmonary Arteries: No obvious central pulmonary thrombus; however, thestudy was not timed to assess for pulmonary embolism. Pulmonary Parenchyma: Mild patchy mosaic attenuation bilaterally likely representing pulmonary edema. Compressive atelectasis bilaterallysecondary to pleural effusions. Airways: Unremarkable Pleura: Moderate left and small right pleural effusions. Coronary Arteries: Normal coronary artery origins. Moderate diffusecoronary artery calcification noted. Study was not optimized for coronary artery assessment. Myocardium: Dilated left ventricle. Biatrial enlargement. No leftatrial appendage thrombus. On qualitative assessment, moderately reduced LVsystolic function on dynamic phase cine imaging. Pericardium: Trivial pericardial effusion. Skeletal: Diffuse degenerative changes. Upper Abdomen: See separately dictated report on CTA Abdomen & Pelvis finding. IMPRESSION - Bioprosthetic aortic valve that appears to be well positioned and wellseated. No significant pannus. Severely calcified bioprosthetic aortic valveleaflets. AVR Ring measurements: Diameters: 23.7 mm x 22.7 mm Area: 438 mm2 Low coronary heights from base of AVR ring. - Normal thoracic aorta. No acute aortopathy. - Moderately reduced LV systolic function on dynamic phase cine imaging,on qualitative analysis. - Diffuse calcification of the coronary arteries. - Trivial pericardial effusion. - Moderate left and small right pleural effusions and associatedcompressive atelectasis. Pulmonary edema. Thank you for letting us participate in the care of this patient. If youare a health care provider and have any questions regarding this report,please contact the number below. For patients who have questions please contactthe health memory care program resident that requested your imaging first. Antelmo Sharma MD IMG CT ORDERABLES * (ABNORMAL) Lactate, whole blood, send to lab ([facility] (05/11/2023 9:29 AM EDT) Pathologist [facility] Lactate WB 3.1(H) 0.5 - 2.2 mmol/L [facility] Blood 05/11/2023 9:29 AM EDT 05/11/2023 9:38 AM EDT Narrative Resulting Agency Comment Spec In Lab Juan Luis Gonzalez MD CHEMISTRY ORDERABLES [facility] [place] [address] * (ABNORMAL) Differential, Automated (05/11/2023 4:42 AM EDT) Neutrophils % 78.1 % [facility] Neutr Abs (ANC) 5.46 1.70 - 6.10 x10(3)/mc L [facility] Lymphocytes % 10.6 % [facility] Lymphocytes Abs 0.7(L) 0.9 - 3.2 x10(3)/mc L [facility] Monocytes % 9.6 % [facility] Monocyte Abs 0.7 0.3 - 0.9 x10(3)/mc L [facility] Eosinophils % 0.0 % [facility] Eosinophils Abs 0.0 0.0 - 0.4 x10(3)/mc L [facility] Basophils % 0.4 % [facility] Basophils Abs 0.0 0.0 - 0.1 x10(3)/mc L [facility] Immature Gran % 1.30 % [facility] Comment: Immature granulocytes(IG's)percentage and absolute count will include metamyelocytes, myelocytes, and promyelocytes. Blood smears from CBCs yielding IG's will be scanned manually for concordance. If this scan disagrees with the automated IG or if promyelocytes are noted, a manual differential will be performed. Amanda Gran Abs 0.09(H) 0.00 - 0.04 x10(3)/mc L [facility] Blood 05/11/2023 4:42 AM EDT 05/11/2023 4:49 AM EDT Narrative Resulting Agency Comment Spec In Lab Klaudia Reid MD HEMATOLOGY OR DERABLES [facility] [place] [address] * (ABNORMAL) Hemogram (05/11/2023 4:42 AM EDT) WBC 7.0 4.0 - 9.5 x10(3)/[facility] RBC 3.44(L) 4.00 - 5.21 x10(6)/[facility] Hemoglobin 11.1(L) 11.7 - 15.5 g/dL [facility] Hematocrit 32.7(L) 35.7 - 45.8 % [facility] MCV 95.1(H) 82.6 - 94.4 fL [facility] MCH 32.3(H) 27.1 - 32.0 pg [facility] MCHC 33.9 31.7 - 35.0 g/dL [facility] Platelets 165 145 - 357 x10(3)/[facility] RDWSD 43.1 37.0 - 46.0 [facility] RDWCV 12.7 11.5 - 14.1 % [facility] MPV 10.1 7.6 - 12.9 fL [facility] nRBC % Auto 0.0 % [facility] nRBC Abs Auto 0.000 0.000 - 0.000 x10(3)/mcL [facility] Blood 05/11/2023 4:42 AM EDT 05/11/2023 4:49 AM EDT Narrative Resulting Agency Comment Spec In Lab Klaudai Reid MD HEMATOLOGY OR DERABLES Performing Organization Address [facility]/ZIP Co de Phone Number [facility] [place] [address] * Heparin (unfractionated) Level (05/11/2023 4:42 AM EDT) Heparin UFH Level 0.46 IU/mL [facility] Comment: Heparin (anti-Xa) levels should be determined in a plasma sample that has been drawn 6 hours after a dose change to approximate steady-state for continuous heparin infusions. Indication specific Heparin (anti-Xa) levels based on order set selection: Acute DVT or PE treatment: 0.3 ? 0.7 IU/mL Thrombosis Prevention (eg. atrial fibrillation, wally-procedural bridging, mechanical valves): 0.3 ? 0.7 IU/mL Acute Coronary Syndrome: 0.3 ? 0.7 IU/mL Stroke Indications: 0.3 ? 0.5 IU/mL Ultra-low intensity (select indications in cardiac surgery): 0.1 ? 0.3 IU/mL Blood 05/11/2023 4:42 AM EDT 05/11/2023 4:49 AM EDT Narrative Resulting Agency Comment Spec In Lab Radha Hollins MD HEMATOLOGY ORDERAB LES Performing Organization Address [facility]/ZIP Co de Phone Number [facility] [place] [address] * (ABNORMAL) Comprehensive metabolic panel (non-fasting) (05/11/2023 4:42 AM EDT) Glucose Lvl 143 65 - 199 mg/dL [facility] Comment:Diabetes: >=200 mg/d L plus symptoms BUN 42(H) 8 - 18 mg/dL [facility] Creatinine 1.24(H) 0.70 - 1.20 mg/dL [facility] Sodium 134(L) 135 - 145 mmol/L [facility] Potassium 4.6 3.5 - 5.0 mmol/L [facility] Comment: Please note: ??Patients with WBC >100,000 may have falsely elevated Potassium levels. ??For accurate Potassium quantification in these patients send serum separator tube (gold top) for subsequent determinations. ??Contact the Clinical Chemistry Laboratory if there are any questions. Chloride 99 98 - 107 mmol/L [facility] CO2 14(L) 22 - 31 mmol/L [facility] Anion Gap 21(H) 5 - 15 mmol/L [facility] Calcium 9.6 8.5 - 10.5 mg/dL [facility] Total Protein 7.2 6.1 - 8.0 g/dL [facility] Albumin 3.7 3.2 - 5.2 g/dL [facility] AST 144(H) 0 - 30 unit/L [facility] Comment:result rechecked-ssc ALT 130(H) 0 - 30 unit/L [facility] Comment:result rechecked-ssc Alk Phos 72 35 - 105 unit/L [facility] Total Bilirubin 0.8 0.2 - 1.3 mg/dL [facility] Estimated GFR 48(L) >=60 mL/min/1. 73 m?? [facility] [...] and symptoms in addition to eGFR. Blood 05/11/2023 4:42 AM EDT 05/11/2023 4:49 AM EDT Narrative Resulting Agency Comment Spec In Lab Radha Hollins MD CHEMISTRY ORDERABL ES Performing Organization Address City/[facility]/ZIP Co de Phone Number [facility] [place] [address] * EKG 12 Lead (05/10/2023 1:16 PM EDT) Ventricular rate 118 BPM MUSE SYSTEM Atrial Rate 118 BPM MUSE SYSTEM P-R Interval 152 ms MUSE SYSTEM QRS Duration 104 ms MUSE SYSTEM Q-T Interval 316 ms MUSE SYSTEM QTC Calculated (Bezet) 442 ms MUSE SYSTEM Calculated P [place] 29 degrees MUSE SYSTEM Calculated R [place] 18 degrees MUSE SYSTEM Calculated T [place] -173 degrees MUSE SYSTEM INTERPRETATION Sinus tachycardia Minimal voltage criteria for LVH, may be normal variant ( Luc product ) Septal infarct , age undetermined ST & T wave abnormality, consider lateral ischemia Abnormal ECG When compared with ECG of 10-MAY-2023 07:59, Fusion complexes are no longer Present Premature ventricular complexes are no longer Present ST no longer depressed in Anterior leads Confirmed by MD Villareal Danette ([id number]) on 05/10/2023 8:47:46 PM MUSE SYSTEM 05/10/2023 1:16 PM EDT 05/10/2023 8:47 PM EDT Juna Luis Gonzalez MD ECG ORDERABLES Performing Organization Address [facility] Co de Phone Number MUSE SYSTEM * Lactate, whole blood, send to lab ([facility]) (05/10/2023 11:52 AM EDT) Lactate WB 1.8 0.5 - 2.2 mmol/L [facility] Blood 05/10/2023 11:5 2 AM EDT 05/10/2023 12:13 PM EDT Narrative Resulting Agency Comment Spec In Lab Juan Luis Gonzalez MD CHEMISTRY ORDERABLES Performing Organization Address City/[facility]/ZIP Co de Phone Number [facility] [place] [address] * XR Chest One View (05/10/2023 11:16 AM EDT) Anatomical Region Laterality Modality Chest N/A Digital Radiogra phy Impressions 05/10/2023 1:25 PM EDT Mild interstitial edema with vascular congestion and small pleural effusions. Thank you for letting us participate in the care of this patient. ??If you are a health care provider and have any questions regarding this report, please contact the number below. ??For patients who have questions please contact the health memory care program resident that requested your imaging first. ? Electronically signed by: ALIX RUVALCABA MD, [facility] ([phone]), at 05/10/2023 1:25 PM Narrative 05/10/2023 1:25 PM EDT EXAMINATION: XR CHEST ONE VIEW CLINICAL HISTORY: 67 YOF with worsening dyspnea, concern for pulmonary edema TECHNIQUE: 1 view of the chest COMPARISON: Chest radiograph 10/14/2016 FINDINGS: Hazy bibasilar opacities with obscuration/indistinctness of the hemidiaphragms and blunting of the costophrenic angles. No pneumothorax. Increased prominence and indistinctness of the central pulmonary vasculature. Increased thickening of interstitial markings. Unchanged borderline cardiomegaly with note of sternotomy wires and aortic valve replacement. No acute osseous abnormality. Procedure Note Alix Ruvalcaba MD - 05/10/2023 EXAMINATION: XR CHEST ONE VIEW CLINICAL HISTORY: 67 YOF with worsening dyspnea, concern for pulmonaryedema TECHNIQUE: 1 view of the chest COMPARISON: Chest radiograph 10/14/2016 FINDINGS: Hazy bibasilar opacities with obscuration/indistinctness of thehemidiaphragms and blunting of the costophrenic angles. No pneumothorax. Increasedprominence and indistinctness of the central pulmonary vasculature. Increasedthickening of interstitial markings. Unchanged borderline cardiomegaly with note ofsternotomy wires and aortic valve replacement. No acute osseous abnormality. IMPRESSION Mild interstitial edema with vascular congestion and small pleuraleffusions. Thank you for letting us participate in the care of this patient. If youare a health care provider and have any questions regarding this report,please contact the number below. For patients who have questions please contactthe health memory care program resident that requested your imaging first. Electronically signed by: ALIX RUVALCABA MD, [facility]([phone]), at 05/10/2023 1:25 PM Juan Luis Gonzalez MD IMG DX ORDERABLES * EKG 12 Lead (05/10/2023 7:59 AM EDT) Ventricular rate 115 BPM MUSE SYSTEM Atrial Rate 115 BPM MUSE SYSTEM P-R Interval 142 ms MUSE SYSTEM QRS Duration 102 ms MUSE SYSTEM Q-T Interval 322 ms MUSE SYSTEM QTC Calculated (Bezet) 445 ms MUSE SYSTEM Calculated P [place] 36 degrees MUSE SYSTEM Calculated R [place] 28 degrees MUSE SYSTEM Calculated T [place] -119 degrees MUSE SYSTEM INTERPRETATION Sinus tachycardia with frequent Premature ventricular complexes and Fusion complexes ST & T wave abnormality, consider lateral ischemia Abnormal ECG When compared with ECG of 08-MAY-2023 15:51, No significant change was found I personally reviewed the tracing and edited the fellows interpretation Confirmed by fellow MD Welsh Hanyuan () on 05/11/2023 6:19:54 AM Confirmed by MD Ugalde Hannah ([id number]) on 05/11/2023 3:18:56 PM MUSE SYSTEM 05/10/2023 7:59 AM EDT 05/11/2023 3:18 PM EDT Radha Hollins MD ECG ORDERABLES MUSE SYSTEM * (ABNORMAL) Differential, Automated (05/10/2023 2:28 AM EDT) Neutrophils % 77.1 % [facility] Neutr Abs (ANC) 4.01 1.70 - 6.10 x10(3)/[facility] Lymphocytes % 14.0 % [facility] Lymphocytes Abs 0.7(L) 0.9 - 3.2 x10(3)/[facility] Monocytes % 7.7 % [facility] Monocyte Abs 0.4 0.3 - 0.9 x10(3)/[facility] Eosinophils % 0.4 % [facility] Eosinophils Abs 0.0 0.0 - 0.4 x10(3)/[facility] Basophils % 0.4 % [facility] Basophils Abs 0.0 0.0 - 0.1 x10(3)/[facility] Immature Gran % 0.40 % [facility] Comment: Immature granulocytes(IG's)percentage and absolute count will include metamyelocytes, myelocytes, and promyelocytes. Blood smears from CBCs yielding IG's will be scanned manually for concordance. If this scan disagrees with the automated IG or if promyelocytes are noted, a manual differential will be performed. Amanda Gran Abs 0.02 0.00 - 0.04 x10(3)/[facility] Blood 05/10/2023 2:28 AM EDT 05/10/2023 2:57 AM EDT Narrative Resulting Agency Comment Spec In Lab Klaudia Reid MD HEMATOLOGY OR DERABLES [facility] [place] [address] * (ABNORMAL) Hemogram (05/10/2023 2:28 AM EDT) WBC 5.2 4.0 - 9.5 x10(3)/[facility] RBC 3.11(L) 4.00 - 5.21 x10(6)/[facility] Hemoglobin 10.2(L) 11.7 - 15.5 g/dL [facility] Hematocrit 30.2(L) 35.7 - 45.8 % [facility] MCV 97.1(H) 82.6 - 94.4 fL [facility] MCH 32.8(H) 27.1 - 32.0 pg [facility] MCHC 33.8 31.7 - 35.0 g/dL [facility] Platelets 151 145 - 357 x10(3)/[facility] RDWSD 44.9 37.0 - 46.0 [facility] RDWCV 12.8 11.5 - 14.1 % [facility] MPV 9.8 7.6 - 12.9 [facility] nRBC % Auto 0.0 % [facility] nRBC Abs Auto 0.000 0.000 - 0.000 x10(3)/[facility] Blood 05/10/2023 2:28 AM EDT 05/10/2023 2:57 AM EDT Narrative Resulting Agency Comment Spec In Lab Klaudia Reid MD HEMATOLOGY OR DERABLES [facility] [place] [address] * (ABNORMAL) Comprehensive metabolic panel (non-fasting) (05/10/2023 2:28 AM EDT) Glucose Lvl 100 65 - 199 mg/dL [facility] Comment:Diabetes: >=200 mg/d L plus symptoms BUN 30(H) 8 - 18 mg/dL [facility] Creatinine 0.90 0.70 - 1.20 mg/dL [facility] Sodium 134(L) 135 - 145 mmol/L [facility] Potassium 4.1 3.5 - 5.0 mmol/L [facility] Comment: Please note: ??Patients with WBC >100,000 may have falsely elevated Potassium levels. ??For accurate Potassium quantification in these patients send serum separator tube (gold top) for subsequent determinations. ??Contact the Clinical Chemistry Laboratory if there are any questions. Chloride 102 98 - 107 mmol/L [facility] CO2 20(L) 22 - 31 mmol/L [facility] Anion Gap 12 5 - 15 mmol/L [facility] Calcium 9.3 8.5 - 10.5 mg/dL [facility] Total Protein 6.4 6.1 - 8.0 g/dL [facility] Albumin 3.7 3.2 - 5.2 g/dL [facility] AST 24 0 - 30 unit/L [facility] ALT 14 0 - 30 unit/L [facility] Alk Phos 70 35 - 105 unit/L [facility] Total Bilirubin 0.5 0.2 - 1.3 mg/dL [facility] Estimated GFR 70 >=60 mL/min/1. 73 m?? [facility] [...] and symptoms in addition to eGFR. Blood 05/10/2023 2:28 AM EDT 05/10/2023 2:57 AM EDT Narrative Resulting Agency Comment Spec In Lab Radha Hollins MD CHEMISTRY ORDERABL ES [facility] [place] [address] * Heparin (unfractionated) Level (05/10/2023 2:28 AM EDT) [facility] [address] Heparin UFH Level 0.37 IU/mL [facility] Comment: Heparin (anti-Xa) levels should be determined in a plasma sample that has been drawn 6 hours after a dose change to approximate steady-state for continuous heparin infusions. Indication specific Heparin (anti-Xa) levels based on order set selection: Acute DVT or PE treatment: 0.3 ? 0.7 IU/mL Thrombosis Prevention (eg. atrial fibrillation, wally-procedural bridging, mechanical valves): 0.3 ? 0.7 IU/mL Acute Coronary Syndrome: 0.3 ? 0.7 IU/mL Stroke Indications: 0.3 ? 0.5 IU/mL Ultra-low intensity (select indications in cardiac surgery): 0.1 ? 0.3 IU/mL Blood 05/10/2023 2:28 AM EDT 05/10/2023 2:57 AM EDT Narrative Resulting Agency Comment Spec In Lab Radha Hollins MD HEMATOLOGY ORDERAB LES [facility] [place] [address] * (ABNORMAL) Differential, Automated (05/09/2023 4:00 AM EDT) [facility] [address] Neutrophils % 81.7 % [facility] Neutr Abs (ANC) 5.26 1.70 - 6.10 x10(3)/mc L [facility] Lymphocytes % 10.7 % [facility] Lymphocytes Abs 0.7(L) 0.9 - 3.2 x10(3)/mc L [facility] Monocytes % 6.5 % [facility] Monocyte Abs 0.4 0.3 - 0.9 x10(3)/mc L [facility] Eosinophils % 0.5 % [facility] Eosinophils Abs 0.0 0.0 - 0.4 x10(3)/mc L [facility] Basophils % 0.3 % [facility] Basophils Abs 0.0 0.0 - 0.1 x10(3)/mc L [facility] Immature Gran % 0.30 % [facility] Comment: Immature granulocytes(IG's)percentage and absolute count will include metamyelocytes, myelocytes, and promyelocytes. Blood smears from CBCs yielding IG's will be scanned manually for concordance. If this scan disagrees with the automated IG or if promyelocytes are noted, a manual differential will be performed. Amanda Gran Abs 0.02 0.00 - 0.04 x10(3)/[facility] Blood 05/09/2023 4:00 AM EDT 05/09/2023 4:19 AM EDT Narrative Resulting Agency Comment Spec In Lab Klaudia Reid MD HEMATOLOGY OR DERABLES Performing Organization Address City/State/[facility] Co de Phone Number [facility] [place] [address] * (ABNORMAL) Hemogram (05/09/2023 4:00 AM EDT) WBC 6.4 4.0 - 9.5 x10(3)/[facility] RBC 3.15(L) 4.00 - 5.21 x10(6)/[facility] Hemoglobin 10.2(L) 11.7 - 15.5 g/dL [facility] Hematocrit 30.3(L) 35.7 - 45.8 % [facility] MCV 96.2(H) 82.6 - 94.4 fL [facility] MCH 32.4(H) 27.1 - 32.0 pg [facility] MCHC 33.7 31.7 - 35.0 g/dL [facility] Platelets 151 145 - 357 x10(3)/[facility] RDWSD 44.7 37.0 - 46.0 fL [facility] RDWCV 12.8 11.5 - 14.1 % [facility] MPV 9.4 7.6 - 12.9 fL [facility] nRBC % Auto 0.0 % [facility] nRBC Abs Auto 0.000 0.000 - 0.000 x10(3)/mcL [facility] Blood 05/09/2023 4:00 AM EDT 05/09/2023 4:19 AM EDT Narrative Resulting Agency Comment Spec In Lab Klaudia Reid MD HEMATOLOGY OR DERABLES Performing Organization Address [facility] Co de Phone Number [facility] [place] [address] * Heparin (unfractionated) Level (05/09/2023 4:00 AM EDT) Heparin UFH Level 0.47 IU/mL [facility] Comment: Heparin (anti-Xa) levels should be determined in a plasma sample that has been drawn 6 hours after a dose change to approximate steady-state for continuous heparin infusions. Indication specific Heparin (anti-Xa) levels based on order set selection: Acute DVT or PE treatment: 0.3 ? 0.7 IU/mL Thrombosis Prevention (eg. atrial fibrillation, wally-procedural bridging, mechanical valves): 0.3 ? 0.7 IU/mL Acute Coronary Syndrome: 0.3 ? 0.7 IU/mL Stroke Indications: 0.3 ? 0.5 IU/mL Ultra-low intensity (select indications in cardiac surgery): 0.1 ? 0.3 IU/mL Blood 05/09/2023 4:00 AM EDT 05/09/2023 4:19 AM EDT Narrative Resulting Agency Comment Spec In Lab Radha Hollins MD HEMATOLOGY ORDERAB LES Performing Organization Address [facility] Co de Phone Number [facility] [place] [address] * (ABNORMAL) Comprehensive metabolic panel (non-fasting) (05/09/2023 4:00 AM EDT) Glucose Lvl 108 65 - 199 mg/dL [facility] Comment:Diabetes: >=200 mg/d L plus symptoms BUN 31(H) 8 - 18 mg/dL [facility] Creatinine 1.03 0.70 - 1.20 mg/dL [facility] Sodium 137 135 - 145 mmol/L [facility] Potassium 4.4 3.5 - 5.0 mmol/L [facility] Comment: Please note: ??Patients with WBC >100,000 may have falsely elevated Potassium levels. ??For accurate Potassium quantification in these patients send serum separator tube (gold top) for subsequent determinations. ??Contact the Clinical Chemistry Laboratory if there are any questions. Chloride 102 98 - 107 mmol/L [facility] CO2 20(L) 22 - 31 mmol/L [facility] Anion Gap 15 5 - 15 mmol/L [facility] Calcium 9.3 8.5 - 10.5 mg/dL [facility] Total Protein 6.6 6.1 - 8.0 g/dL [facility] Albumin 3.8 3.2 - 5.2 g/dL [facility] AST 32(H) 0 - 30 unit/L [facility] ALT 18 0 - 30 unit/L [facility] Alk Phos 78 35 - 105 unit/L [facility] Total Bilirubin 0.5 0.2 - 1.3 mg/dL [facility] Estimated GFR 60 >=60 mL/min/1. 73 m?? [facility] [...] and symptoms in addition to eGFR. Blood 05/09/2023 4:00 AM EDT 05/09/2023 4:19 AM EDT Narrative Resulting Agency Comment Spec In Lab Radha Hollins MD CHEMISTRY ORDERABL ES Performing Organization Address [facility]/ZIP Co de Phone Number [facility] [place] [address] * (ABNORMAL) pro-Brain Natriuretic Peptide (05/08/2023 4:00 PM EDT) ProBNP 25,503(H) <=124 pg/mL [facility] Blood Venous Draw / Unknown 05/08/2023 4:00 PM EDT 05/08/2023 4:25 PM EDT Narrative Resulting Agency Comment Spec In Lab Juan Luis Gonzalez MD CHEMISTRY ORDERABLES Performing Organization Address [facility] Co de Phone Number [facility] [place] [address] * Magnesium (05/08/2023 4:00 PM EDT) Magnesium 0.82 0.69 - 1.07 mmol/L [facility] [facility] Blood 05/08/2023 4:00 PM EDT 05/08/2023 4:06 PM EDT Narrative Resulting Agency Comment Spec In Lab Enrique Chua MD CHEMISTRY ORDERABLES Performing Organization Address [facility] Co de Phone Number [facility] [place] [phone] * Potassium (05/08/2023 4:00 PM EDT) Potassium 3.9 3.5 - 5.0 mmol/L [facility] Comment: Please note: ??Patients with WBC >100,000 may have falsely elevated Potassium levels. ??For accurate Potassium quantification in these patients send serum separator tube (gold top) for subsequent determinations. ??Contact the Clinical Chemistry Laboratory if there are any questions. Blood 05/08/2023 4:00 PM EDT 05/08/2023 4:06 PM EDT Narrative Resulting Agency Comment Spec In Lab Radha Hollins MD CHEMISTRY ORDERABL ES Performing Organization Address [facility] de Phone Number [facility] [place] [address] * Heparin (unfractionated) Level (05/08/2023 4:00 PM EDT) Pathologist [facility] Heparin UFH Level 0.43 IU/mL [facility] Comment: Heparin (anti-Xa) levels should be determined in a plasma sample that has been drawn 6 hours after a dose change to approximate steady-state for continuous heparin infusions. Indication specific Heparin (anti-Xa) levels based on order set selection: Acute DVT or PE treatment: 0.3 ? 0.7 IU/mL Thrombosis Prevention (eg. atrial fibrillation, wally-procedural bridging, mechanical valves): 0.3 ? 0.7 IU/mL Acute Coronary Syndrome: 0.3 ? 0.7 IU/mL Stroke Indications: 0.3 ? 0.5 IU/mL Ultra-low intensity (select indications in cardiac surgery): 0.1 ? 0.3 IU/mL Blood 05/08/2023 4:00 PM EDT 05/08/2023 4:06 PM EDT Narrative Resulting Agency Comment Spec In Lab Radha Hollins MD HEMATOLOGY ORDERAB LES Performing Organization Address [facility] Co de Phone Number [facility] [place] [address] * EKG 12 Lead (05/08/2023 3:51 PM EDT) Ventricular rate 98 BPM MUSE SYSTEM Atrial Rate 98 BPM MUSE SYSTEM P-R Interval 150 ms MUSE SYSTEM QRS Duration 102 ms MUSE SYSTEM Q-T Interval 358 ms MUSE SYSTEM QTC Calculated (Bezet) 457 ms MUSE SYSTEM Calculated P [place] 38 degrees MUSE SYSTEM Calculated R [place] 48 degrees MUSE SYSTEM Calculated T [place] -112 degrees MUSE SYSTEM INTERPRETATION Sinus rhythm with frequent and consecutive Premature ventricular and fusion complexes Septal infarct , age undetermined ST & T wave abnormality, consider anterolateral ischemia Abnormal ECG When compared with ECG of 09-NOV-2022 11:17, T wave inversion now evident in Anterolateral leads Confirmed by MD Harshil, Enrique Bell ([id number]) on 05/10/2023 8:11:46 AM MUSE SYSTEM 05/08/2023 3:51 PM EDT 05/10/2023 8:11 AM EDT Radha Hollins MD ECG ORDERABLES MUSE SYSTEM * (ABNORMAL) Differential, Automated (05/08/2023 11:38 AM EDT) Neutrophils % 71.3 % [facility] Neutr Abs (ANC) 2.91 1.70 - 6.10 x10(3)/[facility] Lymphocytes % 19.1 % [facility] Lymphocytes Abs 0.8(L) 0.9 - 3.2 x10(3)/[facility] Monocytes % 9.0 % [facility] Monocyte Abs 0.4 0.3 - 0.9 x10(3)/[facility] Eosinophils % 0.2 % [facility] Eosinophils Abs 0.0 0.0 - 0.4 x10(3)/[facility] Basophils % 0.2 % [facility] Basophils Abs 0.0 0.0 - 0.1 x10(3)/[facility] Immature Gran % 0.20 % [facility] Comment: Immature granulocytes(IG's)percentage and absolute count will include metamyelocytes, myelocytes, and promyelocytes. Blood smears from CBCs yielding IG's will be scanned manually for concordance. If this scan disagrees with the automated IG or if promyelocytes are noted, a manual differential will be performed. Amanda Gran Abs 0.01 0.00 - 0.04 x10(3)/[facility] Blood 05/08/2023 11:3 8 AM EDT 05/08/2023 11:44 AM EDT Narrative Resulting Agency Comment Spec In Lab Lincoln Sal MD HEMATOLOGY ORDERA BLES [facility] [place] [address] * (ABNORMAL) Hemogram (05/08/2023 11:38 AM EDT) WBC 4.1 4.0 - 9.5 x10(3)/[facility] RBC 3.05(L) 4.00 - 5.21 x10(6)/[facility] Hemoglobin 10.2(L) 11.7 - 15.5 g/dL [facility] Hematocrit 29.6(L) 35.7 - 45.8 % [facility] MCV 97.0(H) 82.6 - 94.4 [facility] MCH 33.4(H) 27.1 - 32.0 pg [facility] MCHC 34.5 31.7 - 35.0 g/dL [facility] Platelets 136(L) 145 - 357 x10(3)/[facility] RDWSD 44.3 37.0 - 46.0 [facility] RDWCV 12.6 11.5 - 14.1 % [facility] MPV 9.4 7.6 - 12.9 [facility] nRBC % Auto 0.0 % [facility] nRBC Abs Auto 0.000 0.000 - 0.000 x10(3)/[facility] Blood 05/08/2023 11:3 8 AM EDT 05/08/2023 11:44 AM EDT Narrative Resulting Agency Comment Spec In Lab Lincoln Sal MD HEMATOLOGY ORDERA BLES [facility] [place] [address] * TSH (05/08/2023 11:38 AM EDT) TSH 1.27 0.27 - 4.20 mcIU/mL [facility] Comment: Reference Interval (mcIU/mL): Females: ??First Trimester: 0.23-3.88 ??Second Trimester: 0.22-3.90 ??Third Trimester: 0.44-4.66 Blood 05/08/2023 11:3 8 AM EDT 05/08/2023 11:44 AM EDT Narrative Resulting Agency Comment Spec In Lab Enrique Chua MD CHEMISTRY ORDERABLES Performing Organization Address City/[facility] Co de Phone Number [facility] [place] [address] * (ABNORMAL) Phosphorus (05/08/2023 11:38 AM EDT) Phosphorus 4.7(H) 2.5 - 4.5 mg/dL [facility] Blood 05/08/2023 11:3 8 AM EDT 05/08/2023 11:44 AM EDT Narrative Resulting Agency Comment Spec In Lab Enrique Chua MD CHEMISTRY ORDERABLES Performing Organization Address City/[facility]/ZIP Co de Phone Number [facility] [place] [address] * Magnesium (05/08/2023 11:38 AM EDT) Magnesium 0.76 0.69 - 1.07 mmol/L [facility] Blood 05/08/2023 11:3 8 AM EDT 05/08/2023 11:44 AM EDT Narrative Resulting Agency Comment Spec In Lab Enrique Chua MD CHEMISTRY ORDERABLES [facility] [place] [address] * (ABNORMAL) Basic Metabolic Panel (non-fasting) (05/08/2023 11:38 AM EDT) Glucose Lvl 97 65 - 199 mg/dL [facility] Comment:Diabetes: >=200 mg/d L plus symptoms BUN 27(H) 8 - 18 mg/dL [facility] Creatinine 1.02 0.70 - 1.20 mg/dL [facility] Sodium 139 135 - 145 mmol/L [facility] Potassium 4.2 3.5 - 5.0 mmol/L [facility] Comment: Please note: ??Patients with WBC >100,000 may have falsely elevated Potassium levels. ??For accurate Potassium quantification in these patients send serum separator tube (gold top) for subsequent determinations. ??Contact the Clinical Chemistry Laboratory if there are any questions. Chloride 105 98 - 107 mmol/L [facility] CO2 20(L) 22 - 31 mmol/L [facility] Anion Gap 14 5 - 15 mmol/L [facility] Calcium 9.4 8.5 - 10.5 mg/dL [facility] Estimated GFR 60 >=60 mL/min/1. 73 m?? [facility] [...] and symptoms in addition to eGFR. Blood 05/08/2023 11:3 8 AM EDT 05/08/2023 11:44 AM EDT Narrative Resulting Agency Comment Spec In Lab Enrique Chua MD CHEMISTRY ORDERABLES [facility] [place] [phone] * ECHO COMPLETE (05/08/2023 11:02 AM EDT) EF 25 HEARTLAB SYSTEM Anatomical Region Laterality Modality Cardiac Other 05/08/2023 10:0 3 AM EDT Narrative 05/08/2023 11:51 AM EDT ? Echocardiogram Report Name: PURNIMA THACKER ?Study Date: 05/08/2023 10:03 AMBP: 92/64 mmHg ? Patient Location: CVCC^CV29^A : 1955 ? Height: 155 cm ? Account: [id number] Age: 67 yrs ? Weight: 78 kg Gender: Female ?BSA: 1.8 m2 Ordering Physician: ENRIQUE CHUA Referring Physician: MARIO ALBERTO CHIN Performed By: CHUCKIE Canchola Reason For Study: SAVR Stenosis Exam Location: [facility]. Interpretation Summary -Left ventricle is severely dilated [...] suggests worsening stenosis. Mitral regurgitation is similar. Procedure Complete-[id number]. Satisfactory quality. There is normal sinus rhythm. Atrial ectopy occurs frequently during the study. Left Ventricle Left ventricle is severely dilated. 5.8cm by 2D dimension. There is no left ventricular outflow tract obstruction. A false tendon is identified. There is no ventricular septal defect. Left ventricular systolic function is severely reduced. The left ventricular ejection fraction is 25% by Samuel's biplane. There are segmental wall motion abnormalities. There is akinesis of the apical region. There is akinesis of the septal wall. There is no left ventricular thrombus. No obvious thrombus, no contrast used. Right Ventricle The right ventricle is of normal size. Right ventricular systolic function is normal. Left Atrium The left atrium is severely dilated. There is no evidence for a patent foramen ovale. Right Atrium The right atrium is normal. Aortic Valve A 25mm bovine pericardial valve is present in the aortic valve position. The date or year of insertion is 09/21/2016. Aortic bioprosthesis leaflets are thickened and motion is restricted. 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 The peak gradient across the prosthesis is 63.1 mmHg . The mean gradient across the prosthesis is 40.0 mmHg . The highest gradient is obtained from the apical window. There appears to be trace intravalvular regurgitation. There appears to be no paravalvular regurgitation. Mitral Valve The mitral valve leaflets are thickened. There is mitral annular calcification. There is no mitral stenosis. There is moderate mitral regurgitation. Blunted systolic flow in the pulmonary veins suggests significant mitral regurgitation. Tricuspid Valve The tricuspid valve is structurally normal. There is no tricuspid stenosis. There is mild to moderate tricuspid regurgitation. The Doppler jet is directed along the atrial septum. Pulmonic Valve The pulmonic valve appears to be structurally normal. There is no valvular pulmonic stenosis. There is trace pulmonic valve regurgitation. Great Arteries The aortic root is of normal size. No abnormalities are identified. Ascending aorta is normal in size. The pulmonary artery is not well visualized. Venous Inferior vena cava is normal in size. Inferior vena cava collapse less than 50% with respiration. Pericardium/Pleural There is no pericardial effusion. A pericardial fat pad is present. Hemodynamics The peak right ventricular systolic pressure is 36 mmHg. The estimated right atrial pressure is 8mmHg. Critical Findings Critical result discussed with CVCC team at time echo performed. Ejection Fraction ?2D Measurements ? Volumes EF(MOD-bp): 25.7 % ?IVSd: 1.1 cm ? LAV(MOD- bp) Indexed: ?LVIDd: 5.8 cm ?66.3 ml/m2 ?LVIDs: 4.6 cm ?RA A4Cs_phl: 14.1 cm2 ?LVPWd: 0.99 cm ? EDV (MOD-bp) Index: 81.0 ?LV mass(C)d: 249.9 grams ? ESV (MOD-bp) Index: 60.2 ?LV mass(C)dI: 141.0 grams/m2 ?Ao root diam: 2.9 cm ? SV(LVOT): 49.1 ml ?Ao root diam index: 1.7 ?SI(LVOT): 27.7 ml/m2 ?asc Aorta Diam: 3.0 cm ?LVOT diam: 2.3 cm Doppler TR max wero: 266.4 cm/sec RVSP(TR): 36.4 mmHg LV V1 VTI: 11.9 cm Ao V2 VTI: 81.0 cm Ao Max: 397.3 cm/sec Ao valve max: 63.1 mmHg Ao valve mean: 40.0 mmHg MV E max wero: 95.1 cm/sec Lat Peak E' Wero: 8.5 cm/sec E/ e' (lat): 11.3 Med Peak E' Wero: 9.3 cm/sec E/e' (med): 10.2 E/e' Average: 10.7 GEOVANNA(I,D): 0.61 cm2 Dimensionless index Aov: 0.15 I ?WMSI = 2.38 ? % Normal = 0 ?Segments ??Size X - Cannot ?2 - ?4 - ?1-2 ? small Interpret ?1 - Normal ?? Hypokinetic 3 - Akinetic Dyskinetic ?? 3-5 ? moderate 5 - ? 6-14 ?large Aneurysmal ?15-16 ?? diffuse Procedure Note Enrique Chua MD - 05/08/2023 Echocardiogram Report Name: PURNIMA THACKER Study Date: 0:03 AMBP: 92/64 mmHg Patient Location:[facility]^CV29^A : 1955 Height: 155 cm Account: [id number] Age: 67 yrs Weight: 78 kg Gender: Female BSA: 1.8 m2 Ordering Physician: ENRIQUE CHUA Referring Physician: MARIO ALBERTO CHIN Performed By: CHUCKIE Canchola Reason For Study: SAVR Stenosis Exam Location: [facility]. Interpretation Summary -Left ventricle is severely dilated (LVEDV index 81 mL/m2). Leftventricular systolic function is severely reduced. The left ventricular ejectionfraction is 25% by Samuel's biplane. There is apical and anteroseptal akinesis with hypokinesis elswhere. -The right ventricle is of normal size. Right ventricular systolicfunction is normal. Right ventricular systolic pressure is 36 mmHg. -The left atrium is severely dilated. -There is very severe/critical stenosis of a bioprosthetic valve (meangradient 40 mmHg, peak velocity 4.0 m/s, DI 0.15, stroke volume index 28 mL/m2). -There is moderate functional mitral regurgitation. -There is mild to moderate tricuspid regurgitation. -In direct comparison to a prior study dated 09/15/22, there has been asubstantial decrement in LVEF (previously 55%). 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 Mitral regurgitation is similar. Procedure Complete-[id number]. Satisfactory quality. There is normal sinus rhythm. Atrialectopy occurs frequently during the study. Left Ventricle Left ventricle is severely dilated. 5.8cm by 2D dimension. There is noleft ventricular outflow tract obstruction. A false tendon is identified. Thereis no ventricular septal defect. Left ventricular systolic function is severelyreduced. The left ventricular ejection fraction is 25% by Samuel's biplane. Thereare segmental wall motion abnormalities. There is akinesis of the apicalregion. There is akinesis of the septal wall. There is no left ventricular thrombus. Noobvious thrombus, no contrast used. Right Ventricle The right ventricle is of normal size. Right ventricular systolic functionis normal. Left Atrium The left atrium is severely dilated. There is no evidence for a patentforamen ovale. Right Atrium The right atrium is normal. Aortic Valve A 25mm bovine pericardial valve is present in the aortic valve position.The date or year of insertion is 09/21/2016. Aortic bioprosthesis leaflets arethickened and motion is restricted. There is significant prosthetic aortic valvestenosis. The peak gradient across the prosthesis is 63.1 mmHg . The mean gradientacross the prosthesis is 40.0 mmHg . The highest gradient is obtained from the apicalwindow. There appears to be trace intravalvular regurgitation. There appears to myrna paravalvular regurgitation. Mitral Valve The mitral valve leaflets are thickened. There is mitral annularcalcification. There is no mitral stenosis. There is moderate mitral regurgitation.Blunted systolic flow in the pulmonary veins suggests significant mitralregurgitation. Tricuspid Valve The tricuspid valve is structurally normal. There is no tricuspidstenosis. There is mild to moderate tricuspid regurgitation. The Doppler jet is directedalong the atrial septum. Pulmonic Valve The pulmonic valve appears to be structurally normal. There is novalvular pulmonic stenosis. There is trace pulmonic valve regurgitation. Great Arteries The aortic root is of normal size. No abnormalities are identified.Ascending aorta is normal in size. The pulmonary artery is not well visualized. Venous Inferior vena cava is normal in size. Inferior vena cava collapse lessthan 50% with respiration. Pericardium/Pleural There is no pericardial effusion. A pericardial fat pad is present. Hemodynamics The peak right ventricular systolic pressure is 36 mmHg. The estimatedright atrial pressure is 8mmHg. Critical Findings Critical result discussed with CVCC team at time echo performed. Ejection Fraction 2D Measurements Volumes EF(MOD-bp): 25.7 % IVSd: 1.1 cm LAV(MOD-bp)Indexed: LVIDd: 5.8 cm 66.3 ml/m2 LVIDs: 4.6 cm RA A4Cs_phl: 14.1cm2 LVPWd: 0.99 cm EDV (MOD-bp)Index: 81.0 LV mass(C)d: 249.9 grams ESV (MOD-bp)Index: 60.2 LV mass(C)dI: 141.0 grams/m2 Ao root diam: 2.9 cm SV(LVOT): 49.1ml Ao root diam index: 1.7 SI(LVOT): 27.7ml/m2 asc Aorta Diam: 3.0 cm LVOT diam: 2.3 cm Doppler TR max wero: 266.4 cm/sec RVSP(TR): 36.4 mmHg LV V1 VTI: 11.9 cm Ao V2 VTI: 81.0 cm Ao Max: 397.3 cm/sec Ao valve max: 63.1 mmHg Ao valve mean: 40.0 mmHg MV E max wero: 95.1 cm/sec Lat Peak E' Wero: 8.5 cm/sec E/ e' (lat): 11.3 Med Peak E' Wero: 9.3 cm/sec E/e' (med): 10.2 E/e' Average: 10.7 GEOVANNA(I,D): 0.61 cm2 Dimensionless index Aov: 0.15 I WMSI = 2.38 % Normal = 0 SegmentsSize X - Cannot 2 - 4 - 1-2small Interpret 1 - Normal Hypokinetic 3 - Akinetic Dyskinetic 3-5moderate 5 - 6-14large Aneurysmal 15-16diffuse Enrique Chua MD ECHO ORDERABLES * Heparin (unfractionated) Level (05/08/2023 9:45 AM EDT) Heparin UFH Level 0.54 IU/mL [facility] Comment: Heparin (anti-Xa) levels should be determined in a plasma sample that has been drawn 6 hours after a dose change to approximate steady-state for continuous heparin infusions. Indication specific Heparin (anti-Xa) levels based on order set selection: Acute DVT or PE treatment: 0.3 ? 0.7 IU/mL Thrombosis Prevention (eg. atrial fibrillation, wally-procedural bridging, mechanical valves): 0.3 ? 0.7 IU/mL Acute Coronary Syndrome: 0.3 ? 0.7 IU/mL Stroke Indications: 0.3 ? 0.5 IU/mL Ultra-low intensity (select indications in cardiac surgery): 0.1 ? 0.3 IU/mL Blood 05/08/2023 9:45 AM EDT 05/08/2023 9:50 AM EDT Narrative Resulting Agency Comment Spec In Lab Enrique Chua MD HEMATOLOGY ORDERABLE S [facility] [place] [address] documented in this encounter Visit Diagnoses Diagnosis S/P TAVR (transcatheter aortic valve replacement)- Primary Aortic valve stenosis, etiology of cardiac valve disease unspecified Heart failure with reduced ejection fraction due to heart valve disease Mild coronary artery disease by [facility] 11/09/2022 Mixed connective tissue disease Other specified diffuse disease of connective tissue Neck pain Cervicalgia Rosacea NICOLAS (obstructive sleep apnea) Obstructive sleep apnea (adult) (pediatric) Essential tremor Essential and other specified forms of tremor Essential hypertension Unspecified essential hypertension Diverticulosis Diverticulosis of colon (without mention of hemorrhage) Depressive disorder Depressive disorder, not elsewhere classified Chronic idiopathic neutropenia Other neutropenia Stenosis of prosthetic aortic valve, initial encounter S/P TAVR (transcatheter aortic valve replacement) Symptomatic severe aortic stenosis with low ejection fraction Mild coronary artery disease by [facility] 11/09/2022 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, 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) Hyperlipidemia, unspecified Heart failure with reduced ejection fraction due to heart valve disease NICOLAS (obstructive sleep apnea) Obstructive sleep apnea (adult) (pediatric) Cardiogenic shock Aortic valve stenosis, etiology of cardiac valve disease unspecified S/P TAVR (transcatheter aortic valve replacement) documented in this encounter Admitting Diagnoses Diagnosis Symptomatic severe aortic stenosis with low ejection fraction documented in this encounter Administered Medications Inactive Administered Medications - up to 3 most recent administrations Medication Order MAR Action Action Date Dose Rate Site acetaminophen (Tylenol) tablet 650 mg 650 mg, Oral, EVERY 6 HOURS PRN, Starting on Marquita 05/20/23 at 1740, Until 05/22/23 at 1246, Pain, Maximum dose of acetaminophen is 4,000 mg from all sources in 24 hours. When ordered for pain, acetaminophen should be given even when other ordered pain medications are indicated., Routine Given 05/20/2023 11:44 PM EDT 650 mg Given 05/20/2023 5:58 PM EDT 650 mg acetaminophen (Tylenol) tablet 975 mg 975 mg, Oral, EVERY 6 HOURS PRN, Starting on Wed05/12/23 at 0944, Until Marquita 05/13/23 at 1328, Pain, For pain when taking by mouth Maximum dose of acetaminophen is 4,000 mg from all sources in 24 hours. When ordered for pain, acetaminophen should be given even when other ordered pain medications are indicated. , Routine Given 05/12/2023 8:24 PM EDT 975 mg albumin (human) 5% 250 mL intravenous solution 25 g, Intravenous, ONCE, 1 dose, On Marquita 05/13/23 at 0330, Call pharmacy for any issues., Routine New Bag 05/13/2023 2:48 AM EDT 25 g aspirin chewable tablet 81 mg 81 mg, Oral, DAILY, First dose on Marquita 05/13/23 at 0900, Until Discontinued, Routine Given 05/22/2023 8:27 AM EDT 81 mg Given 05/21/2023 8:32 AM EDT 81 mg Given 05/20/2023 8:36 AM EDT 81 mg aspirin EC tablet 81 mg 81 mg, Oral, DAILY, First dose on 05/08/23 at 1230, Until Discontinued, Routine Given 05/11/2023 8:34 AM EDT 81 mg Given 05/10/2023 9:26 AM EDT 81 mg Given 05/09/2023 8:34 AM EDT 81 mg atorvastatin (Lipitor) tablet 10 mg 10 mg, Oral, EVERY EVENING, First dose on 05/08/23 at 1700, Until Discontinued, Routine Given 05/12/2023 8:24 PM EDT 10 mg Given 05/11/2023 5:26 PM EDT 10 mg Given 05/10/2023 4:52 PM EDT 10 mg atorvastatin (Lipitor) tablet 10 mg 10 mg, Oral, EVERY EVENING, First dose on Wed05/17/23 at 1700, Until Discontinued, Routine Given 05/21/2023 4:1 9 PM EDT 10 mg Given 05/20/2023 5:38 PM EDT 10 mg Given 05/19/2023 4:15 PM EDT 10 mg bisacodyL (Dulcolax) suppository 10 mg 10 mg, Rectal, ONCE, 1 dose, On Wed05/17/23 at 0845, Routine Given 05/17/2023 8:20 AM EDT 10 mg bumetanide (Bumex) 6 mg in dextrose 5% 50 mL infusion 6 mg, Intravenous, ONCE, 1 dose, On Wed05/12/23 at 0445, Administer over 30 Minutes New Bag 05/12/2023 4:17 AM EDT 6 mg 100 mL/hr chlorhexidine (Peridex) 0.12 % oral solution 15 mL 15 mL, Oral, EVERY 12 HOURS SCHEDULED (2 times per day), First dose on Wed05/12/23 at 1030, Until Discontinued, [place] teeth, Routine Given 05/12/2023 10:04 AM EDT 15 mLs fentaNYL (50 mcg/mL) bolus from infusion 25 mcg 25 mcg, Intravenous, EVERY 10 MIN PRN, Starting on Wed05/12/23 at 0944, Until Marquita 05/13/23 at 0826, Pain, For breakthrough pain (pain scale greater than 3), while intubated, For breakthrough pain (pain scale greater than 3), while intubated. Maximum dose 300 mcg over one hour, Routine Bolus from Infusion 05/12/2023 11:09 AM EDT 25 mcg fentaNYL (PF) (50 mcg/mL) infusion syringe 50 mL 0-100 mcg/hr (0-2 mL/hr), Intravenous, CONTINUOUS, Starting on Wed05/12/23 at 1030, Until Marquita 05/13/23 at 0826, Titrate to patient comfort, pain scale 1-3. Start at 25 mcg/hr. Increase/decrease by 25 mcg/hr every 15 minutes. Do not exceed 100 mcg/hour., Routine Rate/Dose Verify 05/12/2023 4:00 PM EDT 25 mcg/hr 0.5 mL/hr Rate/Dose Change 05/12/2023 3:41 PM EDT 25 mcg/hr 0.5 mL/ hr Rate/Dose Verify 05/12/2023 2:00 PM EDT 50 mcg/hr 1 mL/hr fentaNYL (pf) (50 mcg/mL) multi-dose injection 25-50 mcg 25-50 mcg, Intravenous, EVERY 3 MIN PRN, Starting on Wed05/18/23 at 1528, Until Wed05/18/23 at 1643, Pain, per unit protocol, For use in Interventional Radiology (IR) only for procedural sedation with direct provider supervision and verbal order. - Start dose: 50 mcg (reduce dose to 25 mcg if history of sedation sensitivity). - Titration dose: 25-50 mcg IV, (based on patient response) every 3 minutes PRN to maintain procedural pain less than 2 per Pain Scale. Maximum dose: 50 mcg/dose, 250 mcg/hour, Angio/IR (Intra-Procedure), Routine Given 05/18/2023 4:17 PM EDT 25 mcg Given 05/18/2023 4:13 PM EDT 25 mcg furosemide (Lasix) (10 mg/mL) injection 120 mg 120 mg, Intravenous, ONCE, 1 dose, On 05/12/23 at 0200 Given 05/12/2023 1:10 AM EDT 120 mg furosemide (Lasix) (10 mg/mL) injection 40 mg 40 mg, Intravenous, ONCE, 1 dose, On 10/7/23 at 1200, Routine Given 05/08/2023 11:38 AM EDT 40 mg furosemide (Lasix) (10 mg/mL) injection 40 mg 40 mg, Intravenous, ONCE, 1 dose, On 05/11/23 at 2100 Given 05/11/2023 8:16 PM EDT 40 mg furosemide (Lasix) (10 mg/mL) injection 40 mg 40 mg, Intravenous, ONCE, 1 dose, On 05/16/23 at 0945 Given 05/16/2023 9:13 AM EDT 40 mg furosemide (Lasix) (10 mg/mL) injection 80 mg 80 mg, Intravenous, ONCE, 1 dose, On Wed05/14/23 at 0945 Given 05/14/2023 9:04 AM EDT 80 mg furosemide (Lasix) (10 mg/mL) injection 80 mg 80 mg, Intravenous, ONCE, 1 dose, On 05/15/23 at 1000 Given 05/15/2023 9:51 AM EDT 80 mg furosemide (Lasix) tablet 20 mg 20 mg, Oral, DAILY, 1 dose, First dose on Wed05/10/23 at 1045, Routine Given 05/10/2023 10:25 AM EDT 20 mg furosemide (Lasix) tablet 20 mg 20 mg, Oral, DAILY, First dose on Wed05/19/23 at 1715, Until Discontinued, Routine Given 05/22/2023 8:27 AM EDT 20 mg Given 05/21/2023 8:32 AM EDT 20 mg Given 05/20/2023 8:36 AM EDT 20 mg furosemide (Lasix) tablet 40 mg 40 mg, Oral, DAILY, First dose on Wed05/10/23 at 1715, Until Discontinued, Routine Given 05/11/2023 8:34 AM EDT 40 mg Given 05/10/2023 4:52 PM EDT 40 mg heparin (porcine) 25,000 unit/500 mL (50 unit/mL) infusion 1 dose, Starting on 05/08/23 at 0923, Until 05/08/23 at 1103, Alisha Norris: mahnaz override heparin (porcine) 50 units/mL in dextrose 5% 500 mL infusion 0-5,000 Units/hr (0-100 mL/hr), Intravenous, CONTINUOUS, Starting on 05/08/23 at 1045, Until 05/12/23 at 0136, Begin infusion at 1,100 units per hr (15 units/kg/hr). Maximum initial infusion rate is 2,000 units/hr Infusion doses are rounded to the nearest 50 units. Target Heparin UFH Level (anti-Xa activity) = 0.3 - 0.7 international unit/mL Start adjustment schedule 6 hours after starting infusion. If Heparin UFH Level is: -?Less than 0.1 international unit/mL:?Administer PRN bolus and increase rate by 300 units per hr (4 units/kg/hr) -?0.1 - 0.19 international unit/mL:? Administer PRN bolus and increase rate by 150 units per hr (2 units/kg/hr) -?0.2 - 0.29 international unit/mL:?NO BOLUS and increase rate by 150 units per hr (2 units/kg/hr) -?0.3 - 0.7 international unit/mL:?No change -?0.71 - 0.79 international unit/mL:?NO BOLUS and decrease rate by 50 units per hr (1 units/kg/hr) -?0.8 - 0.99 international unit/mL:?NO BOLUS and decrease rate by 150 units per hr (2 units/kg/hr) -?Greater than or equal to 1.00 international unit/mL:?Hold infusion for 60 minutes then decrease rate by 200 units per hour (3 units/kg/hr) Obtain Heparin UFH Level 6 hours after initiating heparin. Then 6 hours after each dose adjustment. When 2 consecutive Heparin UFH Level within target range of 0.3 - 0.7 international unit/mL, change Heparin UFH Level to once every 24 hours with A.M. labs while on heparin. RN to order required Heparin UFH Level - Per Protocol, Routine Rate/Dose Verify 05/11/2023 10:00 PM EDT 950 Units/hr 19 mL/hr Rate/Dose Verify 05/11/2023 8:00 PM EDT 950 Units/hr 19 mL /hr New Bag 05/11/2023 2:45 PM EDT 950 Units/hr 19 mL/hr HYDROmorphone (Dilaudid) (0.5 mg/0.5 mL) injection syringe 0.2 mg 0.2 mg, Intravenous, EVERY 4 HOURS PRN, Starting on Wed05/18/23 at 1939, Until 05/22/23 at 1246, Pain, Please give if oxycodone 5mg is not effective, Routine Given 05/18/2023 8:32 PM EDT 0.2 mg iohexoL (Omnipaque) (350 mg/mL) solution 0-200 mL 0-200 mL, Intravenous, ONCE PRN, 1 dose, Starting on Wed05/11/23 at 1040, Until Wed05/11/23 at 1040, Per Protocol, Warning Vesicant/Irritant Medication , Radiology Contrast, Routine Given 05/11/2023 10:40 AM EDT 95 mLs lidocaine (Lidoderm) 5% patch 1 patch 1 patch, Transdermal, Administer over 12 Hours, EVERY 24 HOURS, First dose on Wed05/16/23 at 1230, Until Discontinued, Apply patch(es) for 12 hours, and then remove for 12 hours., Routine Patch Applied 05/21/2023 11:49 AM EDT 1 patch 14- Abdomen (Right) Patch Applied 05/19/2023 11:49 AM EDT 1 patch 14- Abdomen (Right) Patch Applied 05/18/2023 11:31 AM EDT 1 patch 13- Abdomen (Left) lidocaine (Xylocaine) 1% (10 mg/mL) injection 10 mg 10 mg, Subcutaneous, ONCE, 1 dose, On Wed05/18/23 at 1615, For use in Interventional Radiology (IR) only for procedure with direct provider supervision and verbal order., Angio/IR (Intra-Procedure), Routine Given 05/18/2023 4:15 PM EDT 10 mg magnesium hydroxide (Milk of Magnesia) (80mg/mL) oral liquid 30 mL 30 mL, Oral, DAILY PRN, Starting on Wed05/12/23 at 0944, Until Wed05/16/23 at 1026, Constipation, 30 mL regular (400 mg/5 mL) = 10 mL concentrate (2400 mg/10 mL), Routine Given 05/14/2023 3:50 PM EDT 30 mLs magnesium sulfate 1 g in dextrose 5% 100 mL infusion 1 g, Intravenous, ONCE, 1 dose, On 05/08/23 at 1330, Administer over 60 Minutes New Bag 05/08/2023 12:56 PM EDT 1 g 100 mL/hr magnesium sulfate 2 g in sterile water 50 mL infusion 2 g, Intravenous, ONCE, 1 dose, On 05/17/23 at 1115, Administer over 120 Minutes New Bag 05/17/2023 10:44 AM EDT 2 g 25 mL/hr magnesium sulfate 2 g in sterile water 50 mL infusion 2 g, Intravenous, ONCE, 1 dose, On Marquita 05/20/23 at 1845, Administer over 120 Minutes New Bag 05/20/2023 5:58 PM EDT 2 g 25 mL/hr magnesium sulfate 2 g in sterile water 50 mL infusion 2 g, Intravenous, ONCE, 1 dose, On 05/22/23 at 0630, Administer over 120 Minutes New Bag 05/22/2023 6:15 AM EDT 2 g 25 mL/hr melatonin tablet 6 mg 6 mg, Oral, NIGHTLY PRN, Starting on Wed05/12/23 at 0944, Until 05/22/23 at 1246, insomnia, Routine Given 05/20/2023 12:25 AM EDT 6 mg Given 05/18/2023 8:31 PM EDT 6 mg Given 05/17/2023 8:25 PM EDT 6 mg metOLazone (Zaroxolyn) tablet 5 mg 5 mg, Oral, ONCE, 1 dose, On Wed05/12/23 at 0445, STAT Given 05/12/2023 5:13 AM EDT 5 mg metoprolol tartrate (Lopressor) tablet 12.5 mg 12.5 mg, Oral, EVERY 8 HOURS SCHEDULED, First dose on 05/16/23 at 0945, Until Discontinued, Routine Given 05/17/2023 5:44 AM EDT 12.5 mg Given 05/16/2023 9:11 PM EDT 12.5 mg Given 05/16/2023 2:07 PM EDT 12.5 mg metoprolol tartrate (Lopressor) tablet 12.5 mg 12.5 mg, Oral, ONCE, 1 dose, On 05/17/23 at 1115, Routine Given 05/17/2023 10:44 AM EDT 12.5 mg metoproloL tartrate (Lopressor) tablet 25 mg 25 mg, Oral, EVERY 12 HOURS SCHEDULED (2 times per day), First dose (after last modification) on Wed05/17/23 at 2100, Until Discontinued, Routine Given 05/22/2023 8:27 AM EDT 25 mg Given 05/21/2023 8:13 PM EDT 25 mg Given 05/21/2023 8:32 AM EDT 25 mg midazolam (pf) (Versed) (1 mg/mL) injection 2 mg 2 mg, Intravenous, ONCE, 1 dose, On Wed05/12/23 at 0230, Routine Given 05/12/2023 1:51 AM EDT 2 mg midazolam (PF) (Versed) 1 MG/ML injection 1 dose, Starting on Wed05/12/23 at 0000, Until Wed05/12/23 at 0151, Magdalena Baires: cabinet override milrinone (Primacor) (0.2 mg/mL) in dextrose 5% 100 mL infusion 0.125 mcg/kg/min ? 77.4 kg (2.9025 mL/hr, rounded to 2.9 mL/hr), Intravenous, CONTINUOUS, Starting on Wed05/12/23 at 0200, Until Wed05/16/23 at 1026, All adjustments must be ordered by the prescriber Do not exceed 0.75 mcg/kg/minute. Warning Vesicant/Irritant Medication Rate/Dose Verify 05/15/2023 6:00 AM EDT 0.125 mcg/kg/min 2.9 mL/hr New Bag 05/15/2023 4:13 AM EDT 0.125 mcg/kg/min 2.9 mL/ hr Rate/Dose Verify 05/15/2023 4:00 AM EDT 0.125 mcg/kg/min 2 .9 mL/hr milrinone (Primacor) 20 mg/100 mL infusion 1 dose, Starting on Wed05/12/23 at 0052, Until Wed05/12/23 at 0118, Nery Zepeda: cabinet override NORepinephrine (Levophed) (16 mcg/mL) in dextrose 5% 250 mL infusion 0-100 mcg/min (0-375 mL/hr), Intravenous, CONTINUOUS, Starting on Wed05/12/23 at 0200, Until Wed05/12/23 at 0944, Titrate to keep MAP greater than 65 mmHg. Start at 2 mcg/min. Increase/decrease by 2 mcg/min every 3 minutes until goal reached. Do not exceed 200 mcg/min. Warning Vesicant/Irritant Medication, Routine Rate/Dose Change 05/12/2023 9:13 AM EDT 8 mcg/min 30 mL/hr Rate/Dose Change 05/12/2023 9:08 AM EDT 9 mcg/min 33.75 m L/hr Rate/Dose Change 05/12/2023 8:13 AM EDT 10 mcg/min 37.5 mL /hr NORepinephrine (Levophed) (16 mcg/mL) in dextrose 5% 250 mL infusion 0-30 mcg/min (0-112.5 mL/hr), Intravenous, CONTINUOUS, Starting on Wed05/12/23 at 1030, Until Marquita 05/13/23 at 0826, Begin if PHENYLephrine and/or vasopressin ineffective. Call TAVR team if initiated. Titrate to keep systolic blood pressure greater than 90 mmHg. Start at 2 mcg/min. Increase/decrease by 2 mcg/min every 3 minutes until goal reached. Do not exceed 30 mcg/min. Warning Vesicant/Irritant Medication, Routine Rate/Dose Change 05/12/2023 6:16 PM EDT 2 mcg/min 7.5 mL/hr Rate/Dose Verify 05/12/2023 6:00 PM EDT 4 mcg/min 15 mL/h r Rate/Dose Verify 05/12/2023 4:00 PM EDT 4 mcg/min 15 mL/h r ondansetron (pf) (Zofran) (2 mg/mL) injection 4 mg 4 mg, Intravenous, EVERY 8 HOURS PRN, Starting on Tu05/11/23 at 1933, Until Wed05/12/23 at 0944, Nausea Given 05/11/2023 7:57 PM EDT 4 mg ondansetron (pf) (Zofran) (2 mg/mL) injection 4 mg 4 mg, Intravenous, EVERY 8 HOURS PRN, Starting on Wed05/12/23 at 0944, Until 05/22/23 at 1246, Nausea, Routine Given 05/18/2023 8:31 PM EDT 4 mg Given 05/12/2023 7:36 AM EDT 4 mg oxyCODONE (Roxicodone) tablet 5 mg 5 mg, Oral, EVERY 4 HOURS PRN, Starting on Marquita 05/13/23 at 0826, Until 05/16/23 at 1130, Pain, Routine Given 05/16/2023 8:19 AM EDT 5 mg Given 05/15/2023 11:08 PM EDT 5 mg Given 05/15/2023 2:06 PM EDT 5 mg oxyCODONE (Roxicodone) tablet 5 mg 5 mg, Oral, EVERY 3 HOURS PRN, Starting on 05/16/23 at 1145, Until 05/22/23 at 1246, Pain, Routine Given 05/19/2023 8:27 AM EDT 5 mg Given 05/18/2023 7:22 PM EDT 5 mg Given 05/17/2023 8:25 PM EDT 5 mg pantoprazole (Protonix) injection 40 mg 40 mg, Intravenous, DAILY, First dose on Wed05/12/23 at 1030, Until Discontinued, Reconstitute with 10 mL of normal saline to a concentration of 4 mg/mL and inject slowly over 2 minutes. Reconstitute with 10 mL of normal saline to a concentration of 4 mg/mL and inject slowly over 2 minutes., Routine Given 05/12/2023 10:04 AM EDT 40 mg pantoprazole EC (Protonix) tablet 40 mg 40 mg, Oral, DAILY, First dose on Wed05/12/23 at 1030, Until Discontinued, DO NOT CRUSH OR OPEN, Routine Given 05/22/2023 8:27 AM EDT 40 mg Given 05/21/2023 8:32 AM EDT 40 mg Given 05/20/2023 8:36 AM EDT 40 mg polyethylene glycoL (Miralax) packet 17 g 17 g, Oral, DAILY PRN, Starting on 05/16/23 at 1025, Until 05/17/23 at 0755, Constipation, Routine Given 05/16/2023 11:44 AM EDT 17 g polyethylene glycoL (Miralax) packet 17 g 17 g, Oral, DAILY, First dose (after last modification) on Wed05/17/23 at 0900, Until Discontinued, Routine Given 05/20/2023 8:35 AM EDT 17 g Given 05/17/2023 8:20 AM EDT 17 g potassium chloride ER (Klor-Con M) crystal tablet 20 mEq 20 mEq, Oral, EVERY 4 HOURS PRN, Starting on 05/08/23 at 2009, Until 05/12/23 at 0944, hypokalemia, Administer for serum potassium (mMol/L) of 3.9 - 4 potassium chloride ER particle/crystal tablets (Klor-Con M) may be broken in half and each half swallowed separately. Tablets can be dissolved in ~4 ounces of water; allow ~2 minutes to dissolve, stir well and drink immediately. Do not crush, chew, or suck on tablet., Routine Given 05/08/2023 8:38 PM EDT 20 mEq potassium chloride ER (Klor-Con M) crystal tablet 20 mEq 20 mEq, Oral, ONCE, 1 dose, On 05/18/23 at 0730, 20 mEq tablet may be dissolved in water for administration potassium chloride ER particle/crystal tablets (Klor-Con M) may be broken in half and each half swallowed separately. Tablets can be dissolved in ~4 ounces of water; allow ~2 minutes to dissolve, stir well and drink immediately. Do not crush, chew, or suck on tablet., Routine Given 05/18/2023 8:27 AM EDT 20 mEq potassium chloride ER (Klor-Con M) crystal tablet 40 mEq 40 mEq, Oral, EVERY 4 HOURS PRN, Starting on 05/16/23 at 1130, Until 05/17/23 at 0831, hypokalemia, Administer for serum potassium (mMol/L) of 3.6 - 3.8 potassium chloride ER particle/crystal tablets (Klor-Con M) may be broken in half and each half swallowed separately. Tablets can be dissolved in ~4 ounces of water; allow ~2 minutes to dissolve, stir well and drink immediately. Do not crush, chew, or suck on tablet., Routine Given 05/17/2023 12:32 AM EDT 40 mEq Given 05/16/2023 6:58 PM EDT 40 mEq Given 05/16/2023 12:40 PM EDT 40 mEq potassium chloride ER (Klor-Con M) crystal tablet 40 mEq 40 mEq, Oral, ONCE, 1 dose, On Marquita 05/20/23 at 0915, potassium chloride ER particle/crystal tablets (Klor-Con M) may be broken in half and each half swallowed separately. Tablets can be dissolved in ~4 ounces of water; allow ~2 minutes to dissolve, stir well and drink immediately. Do not crush, chew, or suck on tablet., Routine Given 05/20/2023 8:36 AM EDT 40 mEq potassium chloride ER (Klor-Con M) crystal tablet 40 mEq 40 mEq, Oral, ONCE, 1 dose, On 05/22/23 at 0630, 20 mEq tablet may be dissolved in water for administration potassium chloride ER particle/crystal tablets (Klor-Con M) may be broken in half and each half swallowed separately. Tablets can be dissolved in ~4 ounces of water; allow ~2 minutes to dissolve, stir well and drink immediately. Do not crush, chew, or suck on tablet., Routine Given 05/22/2023 6:15 AM EDT 40 mEq propofoL (Diprivan) (10 mg/mL) infusion 0-50 mcg/kg/min ? 74.5 kg (0-22.35 mL/hr, rounded to 0-22.4 mL/hr), Intravenous, CONTINUOUS, Starting on Wed05/12/23 at 1030, Until Wed05/13/23 at 0826, Titrate to sedation level of RASS Goal (-1). Start at 10 mcg/kg/min. Increase/decrease by 5 mcg/kg/min every 3 minutes until goal reached. Once stable, reassess patient every 30 minutes. Do not exceed 50 mcg/kg/minute. Discontinue upon extubation., Routine Rate/Dose Verify 05/12/2023 2:00 PM EDT 50 mcg/kg/min 22.4 mL/hr New Bag 05/12/2023 12:48 PM EDT 50 mcg/kg/min 22.4 mL/h r Rate/Dose Verify 05/12/2023 12:00 PM EDT 50 mcg/kg/min 22. 4 mL/hr senna-docusate (Pericolace) 8.6-50 mg per tablet 2 tablet 2 tablet, Oral, DAILY, First dose on Marquita 05/13/23 at 2100, Until Discontinued, Post-op day 1, Routine Given 05/19/2023 9:03 PM EDT 2 tablets Given 05/16/2023 9:12 PM EDT 2 tablets Given 05/15/2023 8:08 PM EDT 2 tablets sodium bicarbonate 8.4 % (1 meq/ml) IV solution 50 mEq 50 mEq, Intravenous, ONCE, 1 dose, On Wed05/12/23 at 1115, Warning Vesicant/Irritant Medication , Routine Given 05/12/2023 10:35 AM EDT 50 mEq sodium bicarbonate 8.4 % (1 meq/ml) IV solution 50 mEq 50 mEq, Intravenous, ONCE, 1 dose, On Wed05/12/23 at 1115, Warning Vesicant/Irritant Medication , Routine Given 05/12/2023 10:35 AM EDT 50 mEq sodium chloride (NebuSal) 3 % nebulizer solution 4 mL 4 mL, Nebulization, ONCE PRN, 1 dose, Starting on Wed05/10/23 at 2213, Until Wed05/10/23 at 2247, Cough, Routine Given 05/10/2023 10:47 PM EDT 4 mLs sodium chloride 0.9 % (flush) (BD PosiFlush Normal Saline 0.9) flush 5 mL 5 mL, Intravenous, 2 TIMES DAILY, First dose on 05/08/23 at 1230, Until Discontinued, Routine Given 05/11/2023 9:00 PM EDT 5 mLs Given 05/11/2023 8:34 AM EDT 5 mLs Given 05/10/2023 9:40 PM EDT 5 mLs sodium chloride 0.9 % (flush) (BD PosiFlush Normal Saline 0.9) flush 5 mL 5 mL, Intravenous, 2 TIMES DAILY, First dose on Wed05/12/23 at 1030, Until Discontinued, Routine Given 05/22/2023 8:28 AM EDT 5 mLs Given 05/21/2023 8:13 PM EDT 5 mLs Given 05/21/2023 8:33 AM EDT 5 mLs sodium chloride 0.9 % (flush) (BD PosiFlush Normal Saline 0.9) flush 5 mL 5 mL, Intravenous, EVERY 8 HOURS, First dose on Wed05/17/23 at 0930, Until Discontinued, Routine Given 05/21/2023 5:30 PM EDT 5 mLs Given 05/20/2023 5:38 PM EDT 5 mLs Given 05/20/2023 8:44 AM EDT 5 mLs sodium chloride 0.9 % (flush) (BD PosiFlush Normal Saline 0.9) flush 5-20 mL 5-20 mL, Intravenous, EVERY 1 MIN PRN, Starting on Wed05/12/23 at 0944, Until 05/22/23 at 1246, flush, Flush pertains to all indwelling lines. Flush per protocol found in the job aid using the link provided on this medication record., Routine Given 05/22/2023 6:15 AM EDT 5 mLs sodium chloride 0.9% infusion 10-30 mL/hr, Intravenous, DAILY PRN, Starting on Wed05/12/23 at 0944, Until Wed05/17/23 at 0831, Side port TKO rate, per [facility] flush protocol Rate/Dose Verify 05/13/2023 6:00 AM EDT 10 mL/hr 10 mL/hr Rate/Dose Verify 05/13/2023 4:00 AM EDT 10 mL/hr 10 mL/h r Rate/Dose Verify 05/13/2023 2:00 AM EDT 10 mL/hr 10 mL/h r sodium chloride 0.9% infusion 10-30 mL/hr, Intravenous, DAILY PRN, Starting on Wed05/12/23 at 0944, Until Wed05/17/23 at 0831, Side port TKO rate, per [facility] flush protocol. Rate/Dose Verify 05/17/2023 8:00 AM EDT 10 mL/hr 10 mL/hr Rate/Dose Verify 05/15/2023 6:00 AM EDT 10 mL/hr 10 mL/h r Rate/Dose Verify 05/15/2023 4:00 AM EDT 10 mL/hr 10 mL/h r spironolactone (Aldactone) tablet 12.5 mg 12.5 mg, Oral, DAILY, First dose on Wed05/10/23 at 1045, Until Discontinued, DO NOT SPLIT, CRUSH OR OPEN, Routine Given 05/11/2023 8:34 AM EDT 12.5 mg Given 05/10/2023 10:25 AM EDT 12.5 mg spironolactone (Aldactone) tablet 12.5 mg 12.5 mg, Oral, DAILY, First dose on Wed05/22/23 at 0900, Until Discontinued, DO NOT SPLIT, CRUSH OR OPEN, Routine Given 05/22/2023 8:27 AM EDT 12.5 mg ticagrelor (Brilinta) tablet 90 mg 90 mg, Oral, 2 TIMES DAILY, First dose on Wed05/12/23 at 2100, Until Discontinued, DO NOT DISCONTINUE WITHOUT CHECKING WITH INTERVENTIONAL CARDIOLOGY, Routine, After the initial loading dose of aspirin (usually 325 mg), use ticagrelor with a daily maintenance dose of aspirin 81 mg. Is this patient on 81 mg of aspirin? Yes Given 05/22/2023 8:27 AM EDT 90 mg Given 05/21/2023 8:13 PM EDT 90 mg Given 05/21/2023 8:32 AM EDT 90 mg vasopressin (Vasostrict) (0.2 units/mL) 100 mL infusion ADS Override 1 dose, Starting on Wed05/12/23 at 0051, Until Wed05/12/23 at 0119, Nery Zepeda: cabclaudet override vasopressin (Vasostrict) (0.2 units/mL) 100 mL infusion 0.08 Units/min (24 mL/hr), Intravenous, CONTINUOUS, Starting on Wed05/12/23 at 0200, Until Wed05/12/23 at 0944, DO NOT TITRATE: Do not exceed 0.04 units/min. Warning Vesicant/Irritant Medication Rate/Dose Verify 05/12/2023 6:00 AM EDT 0.08 Units/min 24 mL/hr Rate/Dose Verify 05/12/2023 4:09 AM EDT 0.08 Units/min 24 mL/hr Rate/Dose Verify 05/12/2023 4:00 AM EDT 0.08 Units/min 24 mL/hr vasopressin (Vasostrict) (0.2 units/mL) 100 mL infusion 0.04-0.1 Units/min (12-30 mL/hr), Intravenous, CONTINUOUS, Starting on Wed05/12/23 at 1030, Until [facility] 05/13/23 at 0826, Titrate to keep systolic blood pressure greater than 90 mmHg. Start at 0.04 units/min. Increase/decrease by 0.005 units/min every 10 minutes until goal reached. Do not exceed 0.1 units/min. Begin if PHENYLephrine ineffective or continue if drip running on admission to unit. Rate/Dose Change 05/12/2023 8:01 PM EDT 0.02 Units/min 6 mL/hr Rate/Dose Verify 05/12/2023 8:00 PM EDT 0.04 Units/min 12 mL/hr Rate/Dose Verify 05/12/2023 6:00 PM EDT 0.04 Units/min 12 mL/hr documented in this encounter Active and Recently Administered Medications Times are shown in EDT. Scheduled Medication Order 05/20/2023 05/21/2023 05/22/2023 aspirin chewable tablet 81 mg(Linked Group 1) 81 mg, Oral, DAILY, First dose on Marquita 05/13/23 at 0900, Until Discontinued, Routine 0836 (Given - Provider: Gabino Calhoun RN) 0832 (Given - Provider: Kia Gallego RN) 0827 (Given - Provider: Kia Gallego, VALDO) atorvastatin (Lipitor) tablet 10 mg 10 mg, Oral, EVERY EVENING, First dose on 05/17/23 at 1700, Until Discontinued, Routine 1738 (Given - Provider: Gabino Calhoun RN) 1619 (Given - Provider: Kia Gallego, VALDO) furosemide (Lasix) tablet 20 mg 20 mg, Oral, DAILY, First dose on Wed05/19/23 at 1715, Until Discontinued, Routine 0836 (Given - Provider: Gabino Calhoun RN) 0832 (Given - Provider: Kia Gallego, VALDO) 0827 (Given - Provider: Kia Gallego, VALDO) lidocaine (Lidoderm) 5% patch 1 patch 1 patch, Transdermal, Administer over 12 Hours, EVERY 24 HOURS, First dose on Wed05/16/23 at 1230, Until Discontinued, Apply patch(es) for 12 hours, and then remove for 12 hours., Routine 1230 (Not Given - Provider: Gabino Calhoun RN - Reason: Patient/family refused) 1149 (Patch Applied - Provider: Kia Gallego RN)2349 (Patch Removed - Provider: Favian Mckeon, VALDO) magnesium sulfate 2 g in sterile water 50 mL infusion (COMPLETED) 2 g, Intravenous, ONCE, 1 dose, On Marquita 05/20/23 at 1845, Administer over 120 Minutes 1758 (New Bag - Provider: Gabino Calhoun RN)1958 (Stopped - Provider: Favian Mckeon RN) magnesium sulfate 2 g in sterile water 50 mL infusion (COMPLETED) 2 g, Intravenous, ONCE, 1 dose, On 05/22/23 at 0630, Administer over 120 Minutes 0615 (New Bag - Provider: Favian Mckeon, VALDO)0815 (Stopped - Provider: Kia Gallego RN) metoproloL tartrate (Lopressor) tablet 25 mg 25 mg, Oral, EVERY 12 HOURS SCHEDULED (2 times per day), First dose (after last modification) on 05/17/23 at 2100, Until Discontinued, Routine 0836 (Given - Provider: Gabino Calhoun RN)2054 (Given - Provider: Favian Mckeon RN) 0832 (Given - Provider: Kia Gallego, VALDO)2012 (Given - Provider: Favian Mckeon RN) 0827 (Given - Provider: Kia Gallego RN) pantoprazole (Protonix) injection 40 mg(Linked Group 2) 40 mg, Intravenous, DAILY, First dose on Wed05/12/23 at 1030, Until Discontinued, Reconstitute with 10 mL of normal saline to a concentration of 4 mg/mL and inject slowly over 2 minutes. Reconstitute with 10 mL of normal saline to a concentration of 4 mg/mL and inject slowly over 2 minutes., Routine 0836 (See Alternative - Provider: Gabino Calhoun RN) 0832 (See Alternative - Provider: Kia Gallego RN) 0827 (See Alternative - Provider: Kia Gallego RN) pantoprazole EC (Protonix) tablet 40 mg(Linked Group 2) 40 mg, Oral, DAILY, First dose on Wed05/12/23 at 1030, Until Discontinued, DO NOT CRUSH OR OPEN, Routine 0836 (Given - Provider: Gabino Calhoun RN) 0832 (Given - Provider: Kia Gallego RN) 0827 (Given - Provider: Kia Gallego, VALDO) polyethylene glycoL (Miralax) packet 17 g 17 g, Oral, DAILY, First dose (after last modification) on 05/17/23 at 0900, Until Discontinued, Routine 0835 (Given - Provider: Gabino Calhoun RN) 0900 (Not Given - Provider: Kia Gallego RN - Reason: Patient/family refused) 0900 (Not Given - Provider: Kia Gallego RN - Reason: Patient/family refused) potassium chloride ER (Klor-Con M) crystal tablet 40 mEq (COMPLETED) 40 mEq, Oral, ONCE, 1 dose, On Marquita 05/20/23 at 0915, potassium chloride ER particle/crystal tablets (Klor-Con M) may be broken in half and each half swallowed separately. Tablets can be dissolved in ~4 ounces of water; allow ~2 minutes to dissolve, stir well and drink immediately. Do not crush, chew, or suck on tablet., Routine 0836 (Given - Provider: Gabino Calhoun RN) potassium chloride ER (Klor-Con M) crystal tablet 40 mEq (COMPLETED) 40 mEq, Oral, ONCE, 1 dose, On 05/22/23 at 0630, 20 mEq tablet may be dissolved in water for administration potassium chloride ER particle/crystal tablets (Klor-Con M) may be broken in half and each half swallowed separately. Tablets can be dissolved in ~4 ounces of water; allow ~2 minutes to dissolve, stir well and drink immediately. Do not crush, chew, or suck on tablet., Routine 0615 (Given - Provider: Favian Mckeon RN) senna-docusate (Pericolace) 8.6-50 mg per tablet 2 tablet 2 tablet, Oral, DAILY, First dose on Marquita 05/13/23 at 2100, Until Discontinued, Post-op day 1, Routine 2100 (Not Given - Provider: Favian Mckeon RN - Reason: Patient/family refused) 2100 (Not Given - Provider: Favian Mckeon RN - Reason: Patient/family refused) sodium chloride 0.9 % (flush) (BD PosiFlush Normal Saline 0.9) flush 5 mL 5 mL, Intravenous, 2 TIMES DAILY, First dose on Wed05/12/23 at 1030, Until Discontinued, Routine 0841 (Given - Provider: Gabino Calhoun RN)2053 (Given - Provider: Favian Mckeon RN) 0833 (Given - Provider: Kia Gallego, VALDO)2012 (Given - Provider: Favian Mckeon RN) 0828 (Given - Provider: Kia Gallego RN) sodium chloride 0.9 % (flush) (BD PosiFlush Normal Saline 0.9) flush 5 mL 5 mL, Intravenous, EVERY 8 HOURS, First dose on Wed05/17/23 at 0930, Until Discontinued, Routine 0029 (Given - Provider: Favian Mckeon RN)0130 (Not Given - Provider: Favian Mckeon RN - Reason: See comment - Comment: duplicate)0844 (Given - Provider: Gabino Calhoun RN)1738 (Given - Provider: Gabino Calhoun RN) 0130 (Not Given - Provider: Favian Mckeon RN - Reason: See comment)0930 (Not Given - Provider: Kia Gallego RN - Reason: See comment - Comment: duplicate)1730 (Given - Provider: Kia Gallego RN) 0130 (Not Given - Provider: Favian Mckeon RN - Reason: Patient/family refused)0930 (Not Given - Provider: Kia Gallego RN - Reason: See comment) spironolactone (Aldactone) tablet 12.5 mg (CANCELED) 12.5 mg, Oral, DAILY, First dose on Wed05/22/23 at 0900, Until Discontinued, DO NOT SPLIT, CRUSH OR OPEN, Routine 0827 (Given - Provider: Kia Gallego RN) ticagrelor (Brilinta) tablet 90 mg 90 mg, Oral, 2 TIMES DAILY, First dose on Wed05/12/23 at 2100, Until Discontinued, DO NOT DISCONTINUE WITHOUT CHECKING WITH INTERVENTIONAL CARDIOLOGY, Routine, After the initial loading dose of aspirin (usually 325 mg), use ticagrelor with a daily maintenance dose of aspirin 81 mg. Is this patient on 81 mg of aspirin? Yes 36 (Given - Provider: Gabino Calhoun RN)2053 (Given - Provider: Favian Mckeon, VALDO) 0832 (Given - Provider: Kia Gallego, RN)2012 (Given - Provider: Favian Mckeon, RN) 0827 (Given - Provider: Kia Gallego, RN) PRN Medication Order 05/20/2023 05/21/2023 05/22/2023 acetaminophen (Tylenol) tablet 650 mg 650 mg, Oral, EVERY 6 HOURS PRN, Starting on Marquita 05/20/23 at 1740, Until 05/22/23 at 1246, Pain, Maximum dose of acetaminophen is 4,000 mg from all sources in 24 hours. When ordered for pain, acetaminophen should be given even when other ordered pain medications are indicated., Routine 1757 (Given - Provider: Gabino Calhoun RN)2344 (Given - Provider: Petros Valeinte RN) bisacodyL (Dulcolax) suppository 10 mg 10 mg, Rectal, DAILY PRN, Starting on 05/15/23 at 0000, Until 05/22/23 at 1246, Constipation, Starting post-op day 3., Routine HYDROmorphone (Dilaudid) (0.5 mg/0.5 mL) injection syringe 0.2 mg 0.2 mg, Intravenous, EVERY 4 HOURS PRN, Starting on 05/18/23 at 1939, Until 05/22/23 at 1246, Pain, Please give if oxycodone 5mg is not effective, Routine melatonin tablet 6 mg 6 mg, Oral, NIGHTLY PRN, Starting on Wed05/12/23 at 0944, Until 05/22/23 at 1246, insomnia, Routine 0025 (Given - Provider: Favian Mckeon, VALDO) ondansetron (pf) (Zofran) (2 mg/mL) injection 4 mg 4 mg, Intravenous, EVERY 8 HOURS PRN, Starting on Wed05/12/23 at 0944, Until 05/22/23 at 1246, Nausea, Routine oxyCODONE (Roxicodone) tablet 5 mg 5 mg, Oral, EVERY 3 HOURS PRN, Starting on 05/16/23 at 1145, Until 05/22/23 at 1246, Pain, Routine sodium chloride 0.9 % (flush) (BD PosiFlush Normal Saline 0.9) flush 5-20 mL 5-20 mL, Intravenous, EVERY 1 MIN PRN, Starting on Wed05/12/23 at 0944, Until 05/22/23 at 1246, flush, Flush pertains to all indwelling lines. Flush per protocol found in the job aid using the link provided on this medication record., Routine 0615 (Given - Provid er: Favian Mckeon RN) Linked Groups Order Group 1: aspirin chewable tablet 81 mgJump to med 81 mg, Oral, DAILY, First dose on Marquita 05/13/23 at 0900, Until Discontinued, Routine Or aspirin suppository 300 mg (CANCELED) 300 mg, Rectal, DAILY, First dose on Marquita 05/13/23 at 0900, Until Discontinued, Start on post-op day 1 in the AM Give [place] if unable to take PO, Routine Group 2: pantoprazole EC (Protonix) tablet 40 mgJump to med 40 mg, Oral, DAILY, First dose on Wed05/12/23 at 1030, Until Discontinued, DO NOT CRUSH OR OPEN, Routine Or pantoprazole (Protonix) injection 40 mgJump to med 40 mg, Intravenous, DAILY, First dose on Wed05/12/23 at 1030, Until Discontinued, Reconstitute with 10 mL of normal saline to a concentration of 4 mg/mL and inject slowly over 2 minutes. Reconstitute with 10 mL of normal saline to a concentration of 4 mg/mL and inject slowly over 2 minutes., Routine documented in this encounter Care Teams Four Slide Operator Relationship Specialty Start Date End Date Magdalena Acosta MD [address] [place] [address] PCP - General Family Medicine 02/05/23 documented as of this encounter
--- OUTSIDE RECORDS SUMMARY | 2024-02-15 14:07 | XMS_ITS | Encounter Summary ---
[place] [address] Care Team Providers Care Personal Caregiver Name Role Phone Magdalena Acosta MD Primary Care Provider [phone] Reason for Visit * Auth/Cert (Routine) Specialty Diagnoses / Procedures Referred By Contac t Referred To Contact Diagnoses Symptomatic severe aortic stenosis with low ejection fraction NSTEMI, CHF Haris Chua MD [facility] [place] [address] [facility] Referral ID Status Reason Start Date Expiration Date Visits Re quested Visits Authorized [id number] 1 1 Encounter Details Date Type Department Care Team (Late st Contact Info) Description 05/12/2023 7:35 AM EDT Anesthesia [place] [address] Lynda Mcgowan MD [facility] [place] [address] Alie Park MD [facility] [address] Anesthesia Record Procedure Summary Procedure Name Responsible Anesthesiologist Anesthesia Start Time Anesthesia Stop Time CARDIAC CATHETERIZATION Lynda Mcgowan MD 05/12/23 073 5 05/12/23 0945 Events Date Time Event Comment 05/12/2023 0713 0735 AN Verify 0735 Start 0735 An Start Data 0745 Anesthesia Ready 0841 An Intubation 0918 an stop data 0918 Transport 0945 Recovery or ICU Handoff Perla ent care was transferred to the destination unit staff after review of the patient's medical history, current anesthetic/surgical status and plan, according to the Provider Handoff Checklist. 0945 Stop Meds Name Total Midazolam 2 mg fentaNYL 100 mcg Rocuronium 30 mg Dexamethasone 8 mg NORepinephrine (Levophed) (16 mcg/mL) in dextrose 5% 250 mL infusion 851 mcg milrinone (Primacor) (0.2 mg/mL) in dext manpreet 5% 100 mL infusion 0 mg Vasopressin INF 10.56 Units Heparin 7,000 Units EPINEPHrine INF 168 mcg NORepinephrine 32 mcg EPINEPHrine 8 mcg EPINEPHrine 1.024 mg ceFAZolin (Ancef) 1 g vial a ttached to sodium chloride 0.9% 50 mL Mini-Bag Plus 2 g Etomidate 20 mg Dexmedetomidine 8 mcg Succinylcholine 100 mg ondansetron (pf) (Zofran) (2 mg/mL) inje ction 4 mg 4 mg Sodium Chloride 0.9% 0 mL * Agents Name O2 Air * Blood No blood administrations on file. Lines, Drains, and Airways Type Details Placement Removal (RETIRED) Peripheral IV Line - Single Lumen 05/08/23; 1202; cephalic vein (lateral side of arm), left; [id number] catheter system; Anatomical Landmarks; US Not Used; 22 gauge, 1 in length; Nga VILLA RN; tolerated well; 0; site symptomatic, catheter/device intact; 05/20/23; 1326 05/08/23 1202 by Michael Lantigua IV, RN 05/20/23 1326 by Gabino Calhoun RN Urethral Catheter 05/11/23; 1999; Physician order; indwelling single lumen catheter; drainage bag; 05/17/23; 0839 05/11/231999 by Noreen Deutsch RN 05/17/23 08 by Leticia Price RN (RETIRED) Peripheral IV Line - Single Lumen 05/11/231999; cephalic vein (lateral side of arm), left; 22 gauge; no longer indicated, catheter/device intact; 05/22/23; 0937 05/11/231999 by Noreen Deutsch RN 05/22/23 0937 by Kia Gallego RN Pulmonary Artery Catheter - Single Lumen 05/12/23; 0030; Right; internal jugular vein; no longer indicated, removed per policy, catheter intact; 05/13/23; 195405/12/23 0030 by Noreen Deutsch RN 05/13/231954 by Antelmo Cardenas RN (RETIRED) Percutaneous Central Line - Single Lumen 05/12/23; 0030; internal jugular vein, right; introducer; 05/15/23; 1846 05/12/23 0030 by Noreen Deutsch RN 05/15/23 184 by Luis Felipe Parra RN LDA Cath/EP Sheath 05/12/23; 0733; 14 [place] (Fr); Right; Femoral; Arterial 05/12/23 0733 by Guerda Bender, RN 05/12/23 0830 by Guerda Bender RN LDA Cath/EP Sheath 05/12/23; 0734; 6 [place] (Fr); Right; Femoral; Venous 05/12/23 0734 by Guerda Bender RN 05/12/23 0817 by Guerda Bender RN LDA Cath/EP Sheath 05/12/23; 0734; 7 [place] (Fr); Left; Femoral; Arterial 05/12/23 0734 by Guerda Bender, RN 05/12/23 0837 by Guerda Bender RN LDA Cath/EP Sheath 05/12/23; 0734; 6 [place] (Fr); Left; Femoral; Venous 05/12/23 0734 by Guerda Bender RN 05/12/23 0838 by Guerda Bender RN ETT Mask Ventilation: Ea sy (1); ETT Type: Cuffed; ETT Size: 8 mm; Mac Blade: 3; Attempts: 1; Laryngoscopy Grade: 1; ETT Placement Verified By: Capnometry, Visual, Auscultation; Secured at Teeth: 21 cm; Inserted by: Lynda Mcgowan MD; Removal Date: 05/12/23; Removal Time: 1608 05/12/23 0841 by Lynda Mcgowan MD 05/12/23 1608 by Raymond Thapa RT Arterial Line 05/12/23; 0957; 05/13/23; 1456 05/12/23 0957 by Alicia Emanuel RN 05/13/23 145 by Joya Reed RN documented in this encounter Social History Tobacco Use Types Packs/Day Years [...] on file documented as of this encounter OR Notes * Anesthesia Postprocedure Evaluation - Lynda Mgcowan MD - 05/12/2023 9:45 AM EDT Department of Anesthesiology Post-procedure Note Patient: Purnima Thacker Procedure Summary Date: 05/12/23 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 / [facility] Anesthesia Start: 734 Anesthesia Stop: Procedures: CARDIAC CATHETERIZATION COMBINED RIGHT & LEFT HEART CATH,INC INJ FOR L VENTRICULOGRAPHY (WRVU 5.99) @TRANSCATHETER AORTIC VALVE REPLACEMENT (TAVR), PERCUTANEOUS FEMORAL (WRVU 22.47) TRANSESOPHAGEAL ECHO DURING CATH/EP PROCEDURE Diagnosis: Aortic valve stenosis, etiology of cardiac valve disease unspecified (/TAVR) Providers: Antelmo Sharma MD; Alirio Esparza MD; Haris Chua MD Responsible Provider: Lynda Mcgowan MD Anesthesia Type: general ASA Status: 3 All Anesthesia Providers: Anesthesiologist: Lynda Mcgowan MD Distribution Sales Manager: Nico Graham MD Vitals Value Taken Time BP Temp Pulse Resp SpO2 Pain Level Patient Location: ICU Level of Consciousness: Sedated (Pharmacologic/Intentional) Pain Management: Satisfactory Analgesia PONV: None Cardiovascular Status: At Baseline and Hemodynamically Stable Respiratory Status: Intubated/Ventilated Postoperative Fluid Status: Intravascular EUvolemia Possible Anesthetic Complications: NONE apparent at time of evaluation Final Primary Anesthesia Type: General (The anesthetic type performed was the same as planned.) Comments: * Anesthesia Preprocedure Evaluation - Lynda Mcgowan MD - 05/12/2023 9:11 AM EDT Images from the original note were not included. Pre-Anesthesia Evaluation for: Purnima Thacker a 67 y.o. female. Procedure(s): CARDIAC CATHETERIZATION COMBINED RIGHT & LEFT HEART CATH,INC INJ FOR L VENTRICULOGRAPHY (WRVU 5.99) @TRANSCATHETER AORTIC VALVE REPLACEMENT (TAVR), PERCUTANEOUS FEMORAL (WRVU 22.47) TRANSESOPHAGEAL ECHO DURING CATH/EP PROCEDURE Patient Active Problem List Diagnosis Date Noted ??? *Cardiogenic shock 05/12/2023 ??? Symptomatic severe aortic stenosis with low ejection fraction 05/08/2023 ??? Mild coronary artery disease by [facility] 11/09/2022 05/08/2023 ??? Heart failure with reduced ejection fraction due to heart valve disease 05/08/2023 ??? Mixed connective tissue disease 05/01/2023 ??? Neck pain 06/29/2022 ??? Diverticulosis 12/05/2020 ??? Hyperlipidemia, unspecified 12/05/2020 ??? Rosacea 12/05/2020 ??? 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, 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) 10/14/2016 ??? Aortic stenosis 09/21/2016 ??? Chronic idiopathic neutropenia 07/17/2016 ??? NICOLAS (obstructive sleep apnea) 05/28/2014 ??? Depressive disorder 06/28/2013 ??? Essential tremor 06/28/2013 ??? Obesity 06/28/2013 ??? Essential hypertension 2012 Past Medical History: Diagnosis Date ??? Anemia Past Surgical History: Procedure Laterality Date ? ? PRG CATH PLMT LEFT HEART CATH & ARTS W/INJ & ANGIO IMG S&I N/A 11/09/2022 CORONARY ANGIOGRAPHY; W [facility],POSSIBLE PCI (WRVU 5.6) performed by Nitesh Escobedo MD at [facility] ??? PRO AORTOPLAS FOR SUPRAVALV STEN N/A 09/21/2016 @AORTOPLASTY FOR SUPRAVALVULAR STENOSIS (WRVU 29.33) performed by Alirio Esparza MD at [facility] MA[facility] OR ??? PRO REPLACEMENT PROSTHETIC AORTIC VALVE OPEN W CARDIOPULMONARY BYPASS HOMOGRF/STENT N/A 09/21/2016 @REPLACE AORTIC VALVE, OPEN, W\CPB, W\PROSTHETIC VALVE (WRVU 41.32) performed by Alirio Esparza MD at [facility] OR Social History Tobacco Use ??? Smoking status: Never ??? Smokeless tobacco: Never Substance Use Topics ??? Alcohol use: No Alcohol/week: 0.0 standard drinks Comment: none Social History Substance and Sexual Activity Drug Use No No Known Allergies Medications: MAR and/or home medications have been reviewed. Physical Exam: Preprocedure Vitals Current as of 05/12/23 0735 BP: 92/59 Pulse: 121 Resp: 31 SpO2: 94 Temp: 38.1 ??C (100.6 ??F) Height: 154.9 cm (5' 1) (05/08/23) Weight: 74.5 kg (164 lb 3.9 oz) (05/12/23) BMI: 31.03 IBW: 47.8 kg (105 lb 4.8 oz) Last edited 05/12/23 0700 by Currently displaying vitals information from multiple entries within 180 minutes of most recent vitals. Airway Assessment: Mallampati: II TM distance: >3 FB Neck ROM: full Cardiovascular Assessment: Rhythm: regular Pulmonary Assessment: unlabored breathing Dental Assessment: Misc Assessment: IV access: Peripheral line Last Filed Perioperative Cognitive Screening None Anesthesia Plan: ASA 3 general, with a(n) intravenous induction Add-on [id number] TAVR. In cardiogenic shock. Has arterial line, cordis and PA catheter. Last index 1.7 by thermodilution and 1.4 by mixed venous. Region - Intrathoracic Cardiac Informed Consent: Anesthetic plan and risks discussed with patient. Use of blood products discussed with patient who consented to blood products. Plan discussed with resident. Anesthesia Screening documented in this encounter Miscellaneous Notes * Addendum Note - Lynda Mcgowan MD - 05/12/2023 10:19 AM EDT Addendum created 05/12/23 1019 by Lynda Mcgowan MD Intraprocedure Meds edited documented in this encounter Plan of Treatment Upcoming Encounters Date Type Department Care Team (Late st Contact Info) Description 02/22/2024 4:15 PM EDT Office Visit Dermatology at [place] [address] [place] [address] Marek Bonilla MD [address] [place] [address] 06/05/2024 11:30 AM EST Office [place] [address] Magdalena Peralta MD [facility] [address] documented as of this encounter Visit Diagnoses Not on filedocumented in this encounter Administered Medications Inactive Administered Medications - up to 3 most recent administrations Medication Order MAR Action Action Date Dose Rate Site ceFAZolin (Ancef) 1 g vial attached to sodium chloride 0.9% 50 mL Mini-Bag Plus Intravenous, CONTINUOUS PRN, Starting on Wed05/12/23 at 0745, Until Wed05/12/23 at 0945, Administer over 30 Minutes, Anesthesia Intra-op New Bag 05/12/2023 7:45 AM EDT 2 g dexAMETHasone (Decadron) injection Intravenous, PRN, Starting on Wed05/12/23 at 0736, Until Wed05/12/23 at 1019, Anesthesia Intra-op, Routine Given 05/12/2023 7:36 AM EDT 8 mg dexmedeTOMIDine (Precedex) (4 mcg/mL) bolus injection (Anesthsia) Intravenous, PRN, Starting on Wed05/12/23 at 0834, Until Wed05/12/23 at 0945, Anesthesia Intra-op, Routine Given 05/12/2023 8:38 AM EDT 4 mcg Given 05/12/2023 8:34 AM EDT 4 mcg EPINEPHrine (Adrenalin) (0.1 mg/mL) injection Intravenous, PRN, Starting on Wed05/12/23 at 0823, Until Wed05/12/23 at 0945, Anesthesia Intra-op, Routine Given 05/12/2023 8:23 AM EDT 8 mcg EPINEPHrine (Adrenalin) (0.1 mg/mL) injection Intravenous, PRN, Starting on Wed05/12/23 at 0828, Until Wed05/12/23 at 0945, Anesthesia Intra-op, Routine Given 05/12/2023 8:33 AM EDT 24 mcg Given 05/12/2023 8:28 AM EDT 1 mg EPINEPHrine (Adrenalin) (8 mcg/mL) in dextrose 5% 250 mL infusion Intravenous, CONTINUOUS PRN, Starting on Wed05/12/23 at 0821, Until Wed05/12/23 at 0945, Anesthesia Intra-op New Bag 05/12/2023 8:21 AM EDT 2 mcg/min 15 mL/hr etomidate (Amidate) (2 mg/mL) injection Intravenous, PRN, Starting on Wed05/12/23 at 0840, Until Wed05/12/23 at 0945, Anesthesia Intra-op, Routine Given 05/12/2023 8:40 AM EDT 20 mg fentaNYL (pf) (50 mcg/mL) multi-dose injection Intravenous, PRN, Starting on Wed05/12/23 at 0804, Until Wed05/12/23 at 0945, Anesthesia Intra-op, Routine Given 05/12/2023 9:01 AM EDT 25 mcg Given 05/12/2023 8:28 AM EDT 25 mcg Given 05/12/2023 8:16 AM EDT 25 mcg heparin (porcine) (1,000 units/mL) injection Intravenous, PRN, Starting on Wed05/12/23 at 0820, Until Wed05/12/23 at 0945, Anesthesia Intra-op, Routine Given 05/12/2023 8:20 AM EDT 7,000 Uni ts midazolam (pf) (Versed) (1 mg/mL) multi-dose injection Intravenous, PRN, Starting on Wed05/12/23 at 0802, Until Wed05/12/23 at 0945, Anesthesia Intra-op, Routine Given 05/12/2023 8:38 AM EDT 1 mg Given 05/12/2023 8:28 AM EDT 0.5 mg Given 05/12/2023 8:02 AM EDT 0.5 mg NORepinephrine (Levophed) (16 mcg/mL) in dextrose 5% [...] 10 mcg/min 37.5 mL /hr NORepinephrine (Levophed) injection Intravenous, PRN, Starting on Wed05/12/23 at 0813, Until Wed05/12/23 at 0945, Anesthesia Intra-op, Routine Given 05/12/2023 8:32 AM EDT 8 mcg Given 05/12/2023 8:20 AM EDT 8 mcg Given 05/12/2023 8:15 AM EDT 8 mcg ondansetron (pf) (Zofran) (2 mg/mL) injection 4 mg 4 mg, Intravenous, EVERY 8 HOURS PRN, Starting on Wed05/12/23 at 0944, Until 05/22/23 at 1246, Nausea, Routine Given 05/18/2023 8:31 PM EDT 4 mg Given 05/12/2023 7:36 AM EDT 4 mg rocuronium (Zemuron) (10 mg/mL) multi-dose injection Intravenous, PRN, Starting on Wed05/12/23 at 0843, Until Wed05/12/23 at 0945, Anesthesia Intra-op, Routine Given 05/12/2023 8:43 AM EDT 30 mg sodium chloride 0.9% infusion Intravenous, CONTINUOUS PRN, Starting on Wed05/12/23 at 0733, Until Wed05/12/23 at 0945, Anesthesia Intra-op New Bag 05/12/2023 7:33 AM EDT succinylcholine (Anectine;Quelicin) (20 mg/mL) injection Intravenous, PRN, Starting on Wed05/12/23 at 0840, Until Wed05/12/23 at 0945, Anesthesia Intra-op, Routine Given 05/12/2023 8:40 AM EDT 100 mg vasopressin (VASOSTRICT) 0.2 units/mL IV infusion (Anesthesia) Intravenous, CONTINUOUS PRN, Starting on Wed05/12/23 at 0743, Until Wed05/12/23 at 0945 New Bag 05/12/2023 7:33 AM EDT 0.08 Units/min 24 mL/hr documented in this encounter Care Teams Personal Caregiver Relationship Specialty Start Date End Date Magdalena Acosta MD [address] [place] [address] PCP - General Family Medicine 02/05/23 documented as of this encounter
--- OUTSIDE RECORDS SUMMARY | 2024-02-15 14:08 | XMS_ITS | Encounter Summary ---
Author Organization [facility] [place] [address] Care Team Providers Care Field Appraiser Name Role Phone Magdalena Acosta MD Primary Care Provider Encounter Details Date Type Department Care Team (Latest Contact Info) Description 04/27/2023 Travel Social History Tobacco Use Types Packs/Day Years Used Date Smoking Tobacco: Never Smokeless Tobacco: Never Alcohol Use Standard Drinks/Week Comments No 0 (1 standard drink = 0.6 oz pur e alcohol) none Sex and Gender Information Value Date Recorded Sex Assigned at Not on file Gender Identity Not on file Sexual Orientation Not on file documented as of this encounter Plan of Treatment Upcoming Encounters Date Type Department Care Team (Late st Contact Info) Description 02/22/2024 4:15 PM EDT Office Visit Dermatology at [address] [address] Marek Bonilla MD [address] [place] [address] [place] [address] 06/05/2024 11:30 AM EST Office [place] [address] Magdalena Peralta MD [facility] [place] [address] documented as of this encounter Visit Diagnoses Not on filedocumented in this encounter Care Teams Field Appraiser Relationship Specialty Start Date End Date Magdalena Acosta MD [address] [place] [address] PCP - General Family Medicine 02/05/23 documented as of this encounter
--- OUTSIDE RECORDS SUMMARY | 2024-02-15 14:08 | XMS_ITS | Encounter Summary ---
Author Organization [facility] [place] [address] Care Team Providers Care Dermatology Specialist Name Role Phone Junaid Deborah Shields APRN Primary Care Provider [phone] Encounter Details Date Type Department Care Team (Latest Contact Info) Description 11/09/2022 10:37 AM EDT - 11/09/2022 4:53 PM EDT Hospital Encounter [place] [address] Nitesh Escobedo MD [facility] [place] [address] Aortic valve stenosis, etiology of cardiac valve disease unspecified Discharge Disposition: Home Social History Tobacco Use [...] Sign Reading Time Taken Comments Blood Pressure 114/73 11/09/2022 4:00 PM EDT Pulse 80 11/09/2022 3:15 PM EDT Temperature 36.8 ??C (98.2 ??F) 11/09/2022 1 1:24 AM EDT Respiratory Rate 17 11/09/2022 3:15 PM EDT Oxygen Saturation 98% 11/09/2022 4:25 PM EDT Inhaled Oxygen Concentration - - Weight 82.1 kg (180 lb 14.4 oz) 023 11:24 AM EDT Height 154.9 cm (5' 1) 11/09/2022 11:2 4 AM EDT Body Mass Index 34.18 11/09/2022 11:24 AM EDT documented in this encounter Discharge Instructions * Patient Instructions* Blaze Marreor MD - 11/09/2022 1:06 PM EDT Radial Access for Heart Cath Follow-up with Dr. Mejia Activity Try to avoid bending your wrist for the first 12-24 hours after the procedure to allow the artery to fully heal. Do not participate in active sports for 48 hours. Do not lift anything greater than 5 lbs. Catheter Insertion Area Care Take the dressing off of the catheter insertion site the morning following the procedure. Leave thesite open to air. If the site is oozing you may cover it with a band aid. You may take a shower if you wish. Look for signs of infection over the next several days. It is uncommon to have any visible blood at the site, any obvious bleeding is abnormal. A bruise around the wrist or small lump under the skin is normal: they generally disappear in 3-5 days. Expect some mild tenderness over the area where the catheter was inserted. You will notice this after the local anesthetic (numbing medicine) wears off. This should improve during the 24-48 hours after the procedure. You may use acetaminophen (tylenol) if needed. Contact your doctor if the discomfort worsens. Problems to Watch for If there is bright red blood flowing from the catheter insertion area: *stop what you are doing *hold pressure steadily on the area for 15 minutes *call for help *if the bleeding does not stop in 15 minutes call 911 for an ambulance. If there is swelling with black and blue color at the catheter insertion site, there may be bleeding inside. Contact the doctor if there is any increase in size. Look at the insertion site for the first few days at home. Signs of infection are: *redness *swelling *yellow, white, green or brown foul smelling drainage. *increased soreness If you think there is an infection, take your temperature. Then call your doctor. The limb on the side where you had your catheterization should look and feel normal in color, sensation, and temperature. If your hand or fingers become cool, pale, blue or change color contact your doctor. If you are having numbness or tingling in your fingers or hand contact your doctor. Follow-up: Future Appointments Date Time Provider Department Center 02/05/2023 2:30 PM Marek Bonilla MD [facility] New Medications to be Picked Up None For questions regarding this document or issues relating to this hospitalization on the Medical Service, please contact your inpatient physician through the [facility] Call Center Analyst . Issues afterhours and on weekends will be handled by the Hospitalist staff on-call. * Attachments The following attachments cannot be sent through Care Everywhere. * Coronary Angiogram: Post-op ([place]izen [place]) * Right Heart Catheterization: Pulmonary Artery Catheterization: Post-op ([place]izen [place]) documented in this encounter Medications at Time of Discharge Medication Sig Dispensed Refills Start Date End Date nystatin (MYCOSTATIN) 100,000 unit/gram Powder Apply topically 2 times daily as needed. 10/22/2022 OneTouch Verio test strips Strip USE DAILY 01/03/2022 g2OneTouch Delica Plus Lancet 33 gauge Misc USE [...] tablet Take 81 mg by mouth daily. meloxicam (Mobic) 15 mg tablet Take 15 mg by mouth daily. 05/22/2023 dilTIAZem CD (Cardizem CD) 180 mg Capsule, Sust. Release 24 hr Take 180 mg by mouth daily. 04/28/2022 05/22/2023 metoprolol succinate XL (Toprol-XL) 50 mg Tablet Sustained Release 24 hr Take 75 mg by mouth daily. 10/18/2021 02/05/2023 metroNIDAZOLE (METROGEL) 0.75 % Gel Apply every other day after washing as needed. 45 g 5 01/09/2022 05/22/2023 doxycycline (VIBRAMYCIN) 50 mg Capsule Take one capsule by mouth daily in the evening. 90 capsule 3 01/09/2022 01/14/2023 losartan (Cozaar) 25 mg Tablet Take 25 mg by mouth daily. 01/29/2020 05/22/2023 spironolactone (ALDACTONE) 25 mg Tablet Take 0.5 tablets by mouth daily. 10/03/2016 05/22/2023 meTOPROLOL tartrate (LOPRESSOR) 25 mg Tablet Take 25 mg by mouth 2 times daily. 02/05/2023 documented as of this encounter Progress Notes * Blanca Mobley RN - 11/09/2022 4:37 PM EDT Radial dressing dry and intact. Pulse present. IV removed, site benign. My assessment remains unchanged from my previous assessment. No complaints of chest pain or SOB. Discussed pain management. Patient has all belongings and has received discharge summary. Summary reviewed with pt and brother, all questions answered. Patient encouraged to call with any further questions or concerns. Patient discharged to home with brother. Pt demonstrated ability to ambulate to bathroom prior to d/c. VSS. Tolerated PO intake. documented in this encounter H&P Notes * Blaze Marrero MD - 11/09/2022 11:20 AM EDT . [facility] Interventional Cardiology Adult Pre-Procedure H&P Update: Cardiac Catheterization Purnima Thacker [id number] 1955 Chief Complaint: BONILLA HPI: Purnima Thacker is a 67 y.o. female referred for cardiac catheterization by Dr. Maria Luz Mejia for evaluation of BONILLA and severe bioprosthetic . There have not been any changes in health status since last seen in clinic. No fevers, no chills, no bleeding. Please see recent outpatient clinic note for comprehensive physical and history documentation. 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 meloxicam (Mobic) 15 mg tablet Take 15 mg by mouth daily. ??? dilTIAZem CD (Cardizem CD) 180 mg Capsule, Sust. Release 24 hr Take 180 mg by mouth daily. ??? doxycycline (VIBRAMYCIN) 50 mg Capsule Take one capsule by mouth daily in the evening. (Patienttaking differently: daily.) 90 capsule 3 ??? losartan (Cozaar) 25 mg Tablet Take 25 mg by mouth daily. ??? acetaminophen (TYLENOL) 500 mg Tablet Take 2 tablets by mouth every 6 hours as needed for Pain (Please take up to 1,000 mg every 6 hours when experiencing pain -05/11.). 30 tablet 5 ??? spironolactone (ALDACTONE) 25 mg Tablet Take 0.5 tablets by mouth daily. ??? multivitamin (THERAGRAN) Tablet Take 1 tablet by mouth daily. ??? atorvastatin (LIPITOR) 10 mg Tablet Take 10 mg by mouth daily. ??? aspirin 81 mg EC tablet Take 81 mg by mouth daily. PHYSICAL: BP 107/84 (BP Location (NBP): Left arm) Pulse 82 Temp 36.8 ??C (98.2 ??F) (Temporal) Resp 18 Ht 154.9 cm (5' 1) Wt 82.1 kg (180 lb 14.4 oz) SpO2 99% BMI 34.18 kg/m?? Gen: Alert, comfortable appearing, in NAD HEENT: EOMI, MMM Neck: Supple, no JVD CV: RRR, Grade III late peaking systolic murmur best heard at the base and radiates to the carotids. No R/G appreciated, normal S1/S2. Resp: CTAB, no W/R/R Abd: Soft, NT/ND, +BS Ext: No edema, clubbing, or cyanosis. Warm and well perfused. Neuro: CN grossly intact, moving all extremities Psych: Appropriate affect Pulses: distal pulses detectabtle Mallampati: III (soft palate, base of uvula visible) ASA Class: 3 Sedation Plan: Moderate Sedation, IV conscious sedation with fentanyl and midazolam. Labs reviewed and notable for: Lab Results Component Value Date WBC 3.6 (L) 07/03/2022 HGB 11.7 07/03/2022 HCT 34.5 (L) 07/03/2022 MCV 95.6 (H) 07/03/2022 PLATELET 171 07/03/2022 Lab Results Component Value Date CREATININE 0.80 07/03/2022 BUN 22 (H) 07/03/2022 NA 139 07/03/2022 K 4.2 07/03/2022 CL 105 07/03/2022 CO2 23 07/03/2022 Lab Results Component Value Date INR 1.5 (H) 09/21/2016 Assessment/Plan: 67 y.o. female here for cardiac catheterization for BONILLA and severe bioprosthetic . Will proceed with RHC and coronary angiography. - proceed as planned - consent signed -no apparent contraindication to DAPT, patient denies upcoming or planned procedures/operations, and denies ongoing or recent bleeding events - FULL code -12-Lead ECG reviewed -Labs Reviewed: I have personally discussed the procedure, including benefits and risks, with the patient who agrees to proceed. The indications for the catheterization, the expected benefits, and the possible riskswere reviewed in detail with the patient. The potential for , heart attack, stroke, kidney failure, bleeding, allergic reaction, vascular complications and infection as well as other potential complications were reviewed. The possibility of stenting and other percutaneous interventions, with associated risk, was reviewed. The potential need for emergent coronary artery bypass surgery was reviewed. Alternatives were discussed and the patient's questions were answered in full. Following thisdiscussion, the patient consented to the procedure and signed a form attesting to this, which is inthe chart Blaze Marrero MD Interventional Cardiology 11/09/22 11:43 AM [facility] Pager: [phone] documented in this encounter Plan of Treatment Upcoming Encounters Date Type Department Care Team (Late st Contact Info) Description 02/22/2024 4:15 PM EDT Office Visit Dermatology at [address] [phone] Marek Bonilla MD [address] [place] [address] [place] [address] 06/05/2024 11:30 AM EST Office Visit [place] [address] Magdalena Peralta MD [facility] [place] [address] documented as of this encounter Procedures Procedure Name Priority Date/Time Associated Diagnosis Comments CARDIAC CATHETERIZATION Routine 11/10/19 1:05 PM EDT Aortic valve stenosis, etiology of cardiac valve disease unspecified Cath Plmt Left Heart Cath & Arts W/Inj & Angio Img S&I ([id number]) 11/09/2022 11:51 AM EDT Aortic valve stenosis, etiology of cardiac valve disease unspecified EKG 12-LEAD Routine 11/09/2022 11:17 AM EDT Aortic valve stenosis, etiology of cardiac valve disease unspecified documented in this encounter Results * CARDIAC CATHETERIZATION (11/09/2022 1:05 PM EDT) Anatomical Region Laterality Modality Other Narrative 11/09/2022 2:01 PM EDT ?[facility] ? Cardiac Catheterization/Intervention Report ? Patient Name: Purnima Thacker. ? Procedure Date: 11/09/2022 ? A #: [id number] ? Primary Physician: iNtesh Escobedo ? Case #: [id number] ? File Name: [id number] ? Catheterization Order Number: [id number] ? [facility] ? Final Report [place], [place] ? Patient Name: ? Purnima M. Kirstie ? ID#: ?[id number] ? : ?1955 ? Procedure Date: ? November 09, 2022 ? Case #: ? [id number] ? Room: ? 1 ? Case Physician: ? Nitesh Escobedo M.D. ? Start: ?12:17 ?Fellow: ? Blaze Marrero M.D. ?Admission: ??11/09/2022 ? Procedures: ?* Coronary Angiography ?* Right Heart Catheterization ?* Oximetry ? History ?Purnima Thacker is a 67 year old woman. She has hypertension and a ?family history of coronary artery disease. The patient's smoking status ?is Never. She has hypercholesterolemia managed with lipid therapy. The ?patient also has a history of a prior aortic valve replacement with a ?biological prosthesis. Prior to the initiation of this procedure, the ?patient was designated as ASA Class III. The [facility] clinical frailty scale ?is 4: Vulnerable. ? Diagnostic Tests: ?Prior Coronary Angiography: ? Prior coronary angiography was performed on 06/03/2016 and showed no ? CAD. LV ejection fraction within 6 months is 53%. ?Electrocardiography: ? EKG was assessed by ECG. EKG was Abnormal. EKG showed other ? abnormality. ?Medications Prior to Procedure: ? Angiotensin II Receptor Palak, Beta Palak, Calcium Channel ? Blocking Agent and Statin. ? Indications for Diagnostic Cath: ?The priority of the diagnostic procedure was Elective. Chest pain symptom ?assessment was: Asymptomatic. One of the indications for cath is valvular ?heart disease. The patient has Severe aortic stenosis. ? Technique: ?A 6 SLFr sheath was inserted in the right radial artery utilizing the ?Seldinger technique. A 6 SLFr sheath was inserted in the right median ?antecubital vein utilizing the Seldinger technique. The left coronary ?artery was injected utilizing a 6Fr JL 3.5 catheter. A 5Fr TIG 4.0 ?catheter was used to inject the right coronary artery. 4,000 units of ?heparin were administered. A total of 100cc of Omnipaque were opened, ?89cc of Omnipaque were administered and 11cc of Omnipaque were wasted. ?Radiation: Fluoro time was 11.7 minutes, dose area product was 12,900 ?mGYcm2 and air kerma was 460 mGY. See the case log for additional ?details. ?The patient received the following medications prior to and during the ?procedure: ? Unfractionated Heparin. ? Hemodynamics: ?Right Heart Pressures ? Resting: ? Syst Diast ? EDP ?a ?v ? m ?RA ? 7 ?7 ? 4 ?RV 32 ?6 ?PA 31 ?17 ?20 ?PCW ?20 ?20 ?15 ? Hemodynamic Profile: ?Profile 1 ?CO ? 4.85 ?CI ? 2.68 ?TSR ? 1,254 ?SVR ? 1,188 ?TPR ?330 ?PVR ?82 ?Technique ?Estimated Kiara ?Left Heart Pressures ? Resting: ? Syst Diast ? EDP ?a ?v ? m ?Ao 112 ?? 54 ?76 ? Oximetry: ?Location ? %Sat ?Location ?%Sat ?Main Pulmonary Artery ??63.0 ?Rad Art ? 95.0 ? Coronary Angiography: ?Dominance: Co-dominant ?Left Main ? The left main was normal, free of disease. ?Left Anterior Descending ? There was mild diffuse (<=25% stenosis) disease of the proximal ? segment of the left anterior descending artery (LAD). ??The mid ? segment of the LAD had a single discrete 20% stenosis. ??This lesion ? involved bifurcation. ? There was a 20% single discrete stenosis of the ostial segment of ? the first diagonal branch (Diagonal 1) of the LAD. ?Left Circumflex ? The left circumflex (LCX) was normal, free of disease. ?Right Coronary Artery ? The right coronary artery (RCA) was normal, free of disease. ? Indication for Selected Procedures: ?Right Heart catheterization was initiated for Nonrheumatic aortic (valve) ?stenosis (I35.0). ? Vascular Access: ?Vascular Access Management: ? Manual Compression of the right median antecubital vein access site ? was performed. ? Mechanical Compression of the right radial artery access site was ? performed. ? Conclusions: ?* Nonobstructive coronary artery disease ? Complications/Events: ?The patient had no complications during these procedures. ? Post Procedure Fluid Recommendations: ?IV fluid at 246 mL/hr for 4 hours for a total of 984 mL. These ?recommendations are made at the time of the procedure. Patient and ?provider preferences or a changing clinical situation may require ?modification of this regimen. ?The attending physician was present for the entire procedure. ?Dr. Nitesh Escobedo M.D. was present during the moderate sedation ?intraservice time as documented by the sedation nurse. ??Case time = 00:31. ?Dr. Nitesh Escobedo M.D. performed the coronary angiography, right heart ?catheterization and oximetry. ? Nitesh Escobedo M.D. ? Electronically Signed by: Nitesh E Fanny, M.D. ? Report Finalized: 11/09/2022 ??13:20 ? Nitesh Escobedo MD CARDIAC CATH ORDERAB LES * EKG 12 Lead (11/09/2022 11:17 AM EDT) Ventricular rate 87 BPM MUSE SYSTEM Atrial Rate 87 BPM MUSE SYSTEM P-R Interval 168 ms MUSE SYSTEM QRS Duration 96 ms MUSE SYSTEM Q-T Interval 380 ms MUSE SYSTEM QTC Calculated (Bezet) 457 ms MUSE SYSTEM Calculated P Centenary 44 degrees MUSE SYSTEM Calculated R Centenary 33 degrees MUSE SYSTEM Calculated T Centenary 30 degrees MUSE SYSTEM INTERPRETATION Sinus rhythm Occasional Premature ventricular complexes Otherwise normal ECG When compared with ECG of 21-SEP-2016 12:26, Premature ventricular complexes are now Present OR interval has decreased Nonspecific T wave abnormality has replaced inverted T waves in Inferior leads I personally reviewed the tracing and edited the fellows interpretation Confirmed by fellow MD Anitha, [facility] ([id number]) on 11/09/2022 6:17:28 PM Confirmed by Elsa Linares MD ([id number]) on 11/10/2022 3:47:14 PM MUSE SYSTEM 11/09/2022 11:1 7 AM EDT 11/10/2022 3:47 PM EDT Nitesh Escobedo MD ECG ORDERABLES MUSE SYSTEM documented in this encounter Visit Diagnoses Diagnosis Aortic valve stenosis, etiology of cardiac valve disease unspecified Aortic valve stenosis, etiology of cardiac valve disease unspecified documented in this encounter Administered Medications Inactive Administered Medications - up to 3 most recent administrations Medication Order MAR Action Action Date Dose Rate Site sodium chloride 0.9% infusion 200 mL/hr, Intravenous, CONTINUOUS, Starting on Wed11/09/22 at 1345, Until Wed11/09/22 at 1644, Recovery (Recovery-Hospital Unit) Continued Bag 11/09/2022 1:30 PM EDT 200 mL/hr 200 mL/hr documented in this encounter Active and Recently Administered Medications Times are shown in EDT. Continuous Medication Order 11/07/2022 11/08/2022 11/09/2022 sodium chloride 0.9% infusion 200 mL/hr, Intravenous, CONTINUOUS, Starting on Wed11/09/22 at 1345, Until Wed11/09/22 at 1644, Recovery (Recovery-Hospital Unit) 1330 (Continued Bag - Provider: Seble Espinoza RN) PRN Medication Order 11/07/2022 11/08/2022 11/09/2022 fentaNYL (PF) (50 mcg/mL) injection 25 mcg 25 mcg, Intravenous, EVERY 30 MIN PRN, Starting on Wed11/09/22 at 1317, Until Wed11/09/22 at 1616, Pain, sheath removal, Maximum of 4 doses while in Cath Recovery Unit, Cath (Recovery-Hospital Unit), Routine fentaNYL (pf) (50 mcg/mL) multi-dose injection (CANCELED) ONCE PRN, Starting on Wed11/09/22 at 1211, Until Wed11/09/22 at 1259, Intra-Operative (Intra-Procedure), Routine 1211 (Given - Provid er: Mary Baig RN) heparin (porcine) (1,000 units/mL) injection (CANCELED) ONCE PRN, Starting on Wed11/09/22 at 1230, Until Wed11/09/22 at 1259, Intra-Operative (Intra-Procedure), Routine 1230 (Given - Provid er: Mary Baig RN) iohexoL (Omnipaque) (350 mg/mL) solution (CANCELED) ONCE PRN, Starting on Wed11/09/22 at 1259, Until Wed11/09/22 at 1259, Intra-Operative (Intra-Procedure), Routine 1259 (Given - Provid er: Nitesh Escobedo MD) lidocaine (Xylocaine) 1% (10 mg/mL) injection 3 mg (COMPLETED) 3 mg (0.3 mL), Subcutaneous, ONCE PRN, 1 dose, Starting on Wed11/09/22 at 1110, Until Wed11/09/22 at 1215, with discomfort with PIV insertion, Cath (Day of Procedure), Routine 1215 (Given - Provid er: Nitesh Escobedo MD) lidocaine (Xylocaine) 1% (10 mg/mL) injection (CANCELED) ONCE PRN, Starting on Wed11/09/22 at 1218, Until Wed11/09/22 at 1259, Intra-Operative (Intra-Procedure), Routine 1218 (Given - Provid er: Nitesh Escobedo MD) midazolam (pf) (Versed) (1 mg/mL) injection 1 mg 1 mg, Intravenous, EVERY 1 HOUR PRN, Starting on Wed11/09/22 at 1317, Until Wed11/09/22 at 1616, For sheath removal, Maximum of 2 doses while in Cath Recovery Unit, Cath (Recovery-Hospital Unit), Routine midazolam (pf) (Versed) (1 mg/mL) injection (CANCELED) ONCE PRN, Starting on Wed11/09/22 at 1209, Until Wed11/09/22 at 1259, Intra-Operative (Intra-Procedure), Routine 1209 (Given - Provid er: Mary Baig RN) verapamiL (Isoptin) (2.5 mg/mL) injection (CANCELED) ONCE PRN, Starting on Wed11/09/22 at 1222, Until Wed11/09/22 at 1259, Administer over 2 Minutes, Intra-Operative (Intra-Procedure) 1222 (Given - Provid er: Blaze Marrero MD) documented in this encounter Care Teams Dermatology Specialist Relationship Specialty Start Date End Date Deborah Quiroga, ANURAG PCP - General Family Medicine 03/24/16 02/04/23 documented as of this encounter
--- OUTSIDE RECORDS SUMMARY | 2024-02-15 14:08 | XMS_ITS | Encounter Summary ---
Author Organization [facility] [place] [address] Care Team Providers Care Funeral Pre Arrangement Specialist Name Role Phone Magdalena Acosta MD Primary Care Provider [phone] Encounter Details Date Type Department Care Team (Late st Contact Info) Description 04/27/2023 3:00 PM EDT [place] [address] Magdalena Peralta MD [facility] [place] [address] Mixed connective tissue disease Social History Tobacco [...] Sign Reading Time Taken Comments Blood Pressure 84/47 04/27/2023 2:48 PM EDT Pulse 99 04/27/2023 2:48 PM EDT Temperature 36.4 ??C (97.6 ??F) 04/27/2023 2:48 PM ED T Respiratory Rate 18 04/27/2023 2:48 PM EDT Oxygen Saturation 100% 04/27/2023 2:48 PM EDT Inhaled Oxygen Concentration - - Weight 78.1 kg (172 lb 3.2 oz) 04/27/2023 2:48 P M EDT w/shoes Height - - Body Mass Index 32.54 03/31/2023 9:03 AM EDT documented in this encounter Progress Notes * Magdalena Peralta MD - 04/27/2023 3:00 PM EDT Rheumatology Outpatient Follow Up Note PCP: Magdalena Acosta MD Purnima Thacker is a 67 y.o. female who we are seeing for the continuing management of mixed connective tissue disease. Rheum History: - developed Raynaud's phenomenon, diffuse weakness - consistent history of leukopenia and neutropenia on review of labs - Work up initiated by Neurology: FRANCISCO 1:5120 speckled; VIC negative; Myositis panel with [employer] ab 149.1 (positive); Anti U1RNP IgG 119; Inflammatory markers negative - 03/18: established care with r\heum - started on Hydroxychloroquine 200 mg qd Medical History - TAVR 2016 Interval History: Had been feeling pretty well until 2 weeks ago Had a knee injection on March 01 with outside ortho group, and feels like the pain has returned, butthis time involving the back of her calf. The leg also aches with immobility. For the past several nights, she has also been bothered by an intense sense of restlessness and discomfort, requiring her to get out of bed and sleep in her recliner Feels like she's having hot flashes again Age appropriate cancer screening is up to date; due for colo next year and mammo this year Tolerating the HCQ well Having some increasing shortness of breath; will start discussing TAVR replacement with Cardiology next month ROS (positives in bold): Gen: no fevers, no chills, no night sweats Pulm: no SOB CV: no CP Abd: no abd pain, no nausea, no vomiting, no diarrhea MSK: see HPI Meds and Allergies: Reviewed in eDH Physical exam: BP (!) 84/47 (BP Location (NBP): Left arm, Patient Position: Sitting, BP Cuff Sizes: Large Adult (32-43 cm)) Pulse 99 Temp 36.4 ??C (97.6 ??F) (Temporal) Resp 18 Wt 78.1 kg (172 lb 3.2 oz) Comment: w/shoes SpO2 100% BMI 32.54 kg/m?? Refused to have her blood pressure remeasured, but demonstrated no signs of hypotension or orthostasis Gen: well appearing, alert and oriented x 3, nad HEENT: (-)scleral injection, mucous membranes are moist, no oral mucosal ulcerations Skin: (-)ulcers, (-)rash Neck: Supple, no lymphadenopathy, full range of motion. Cardiovascular: RR, 4/6 murmur best appreciated RUSB Lungs: Clear to auscultation bilaterally. (-)R/R/W Back: Nontender over the spine and costovertebral angles bilaterally. Neuro: Alert and oriented x3, no focal deficits observed Extremities: Shoulders: FROM, non-tender to palpation Elbows: FROM, (-)pain, (-)nodules Wrists: FROM, no swelling, non-tender Hands: No synovitis, no MCP compression tenderness, full claw and fist. Nailfold capillaroscopy with dropout and hyperemia. No nail pitting Knees: Limps with ambulation due to pain in right knee; no appreciable effusion; no significant pain with passive ROM Ankles: FROM, non-tender, no swelling Labs/Studies: Reviewed. Current Immunizations Name Date INFLUENZA 05/18/2016 Assessment/Plan: Purnima Thacker is a 67 y.o. female with medical history including aortic stenosis s/p TAVR 2017 now with prosthetic stenosis followed by us for mixed connective tissue disease. She presents today in follow up after starting Hydroxychloroquine a month ago, which she is tolerating well. WE instructed her to increase this to 200 mg BID. We discussed that her inability to tolerate lying in her bed all night may actually be related to her prosthetic valve stenosis, and she is working with Cardiology to discuss management options. Right knee pain likely related to OA, as thisis what her left knee felt like before it was replaced. She is already discussing management options with [facility]. #mixed connective tissue disease - increase HCQ to 200 mg BID - follow up 3 months #low blood pressue - taking diltiazem, spironolactone, and losartan - hesitant to advise a change to this regimen as she is asymptomatic and requires afterload reduction for aortic stenosis - pt advised on signs and symptoms of low BP and orthostasis and when to call PCP; I will send a note to PCP as well Follow up 3 months Patient was discussed with Dr. Janet Peralta MD Rheumatology Fellow Pager: [phone] * Nitesh Gonzales II, DO - 04/27/2023 3:00 PM EDT Staff Addendum I have seen the patient and reviewed the above history and physical and I agree with the details aswritten. The assessment and plan were formulated in discussion with me and I agree with them as documented. Ms. Thacker is a very pleasant 67-year-old female presenting today for follow-up of mixed connective tissue disease. Her biggest issue at the moment is right knee pain. She had a steroid injection overthe summer which was significantly helpful, however, for the past several weeks, the pain has returned. This has not been particularly swollen, and it has not been red or hot. She has been seen by orthopedics in the past and was told she may need a knee replacement. She is also undergoing evaluation for aortic valve replacement in the setting of aortic stenosis. On exam, she has a small cool effusion in the right knee. Her hands are without digital ulcerations. I think her knee pain represents osteoarthritis, she will follow-up with her orthopedic surgeon regarding this. For now, we have recommended that she continue with Plaquenil 200 mg once daily for hermixed connective tissue disease. We see that she has planned pulmonary imaging, which we will follow-up on as well given the fact that mixed connective tissue can cause pulmonary changes as well. Nitesh Gonzales DO, MPH Rheumatology Staff documented in this encounter Plan of Treatment Upcoming Encounters Date Type Department Care Team (Late st Contact Info) Description 02/22/2024 4:15 PM EDT Office Visit Dermatology at [place] [address] [facility] [place] [address] Marek Bonilla MD [address] [facility] [place] [address] 06/05/2024 11:30 AM EST [place] [address] Magdalena Peralta MD [facility] [place] [address] documented as of this encounter Visit Diagnoses Diagnosis Mixed connective tissue disease Other specified diffuse disease of connective tissue documented in this encounter Care Teams Funeral Pre Arrangement Specialist Relationship Specialty Start Date End Date Magdalena Acosta MD [address] [place] [address] PCP - General Family Medicine 02/05/23 documented as of this encounter
--- OUTSIDE RECORDS SUMMARY | 2024-02-15 14:08 | XMS_ITS | Encounter Summary ---
[place] [address] Care Team Providers Care County Historian Name Role Phone Magdalena Acosta MD Primary Care Provider [phone] Reason for Visit * Reason Comments Skin Lesion Encounter Details Date Type Department Care Team (Late st Contact Info) Description 04/20/2023 10:00 AM EDT Office Visit Dermatology at [address] [address] Marek Bonilla MD [address] [facility] [place] [address] Seborrheic keratosis Social History Tobacco Use Types Packs/Day Years Used Date Smoking Tobacco: Never Smokeless Tobacco: Never Alcohol Use Standard Drinks/Week Comments No 0 (1 standard drink = 0.6 oz pur e alcohol) none Sex and Gender Information Value Date Recorded Sex Assigned at Not on file Gender Identity Not on file Sexual Orientation Not on file documented as of this encounter Progress Notes * Marek Bonilla MD - 04/20/2023 10:00 AM EDT Problem: 1. New lesion of concern, right lateral neck 2. Follow-up rosacea both cutaneous and ocular 3. Previously told by emergency management consultant that she had corneal tears from her rosacea and was told to use eyedrops twice daily 4. History of mildly to moderately atypical nevus left shoulder January 2023 Cheryl follows up concerned about a spot on her right lateral neck below her ear. Physical examination reveals a pleasant 67-year-old woman with a waxy stuck on appearing 8 mm ovoidseborrheic keratosis with light niño pigmentation with 1 darker macular's pigmentation centrally. Itappears entirely unremarkable. It is present on the right lateral neck just below her ear. Assessment plan: Seborrheic keratosis right lateral neck in a subauricular location 1. Patient assured about her benign seborrheic keratosis 2. No treatment necessary 3. We discussed the option of LN2 for removal but patient defers 4. Return to clinic next January for her annual skin checkup. CC: Magdalena Loya MD documented in this encounter Plan of Treatment Upcoming Encounters Date Type Department Care Team (Late st Contact Info) Description 02/22/2024 4:15 PM EDT Office Visit Dermatology at [place] [address] [place] [address] Marek Bonilla MD [address] [facility] [place] [address] 06/05/2024 11:30 AM EST Office [place] [address] Magdalena Peralta MD [facility] [address] [place] [address] documented as of this encounter Visit Diagnoses Diagnosis Seborrheic keratosis Other seborrheic keratosis documented in this encounter Care Teams County Historian Relationship Specialty Start Date End Date Magdalena Acosta MD [address] [place] [address] PCP - General Family Medicine 02/05/23 documented as of this encounter
--- OUTSIDE RECORDS SUMMARY | 2024-02-15 14:08 | XMS_ITS | Encounter Summary ---
Author Organization [facility] [place] [address] Care Team Providers Care Wreath And Garland Maker Hand Name Role Phone Magdalena Acosta MD Primary Care Provider [phone] Encounter Details Date Type Department Care Team (Latest Contact Info) Description 04/20/2023 Travel Social History Tobacco Use Types Packs/Day [...] 4:15 PM EDT Office Visit Dermatology at [address] [address] Marek Bonilla MD [address] [place] [address] [place] [address] 06/05/2024 11:30 AM EST Office [place] [address] Magdalena Peralta MD [facility] [place] [address] documented as of this encounter Visit Diagnoses Not on filedocumented in this encounter Care Teams W[employer]ath And [employer] Maker Hand Relationship Specialty Start Date End Date Magdalena Acosta MD [address] [place] [address] PCP - General Family Medicine 02/05/23 documented as of this encounter
--- OUTSIDE RECORDS SUMMARY | 2024-02-15 14:08 | XMS_ITS | Encounter Summary ---
Author Organization [place] [address] Care Team Providers Care Band Top Maker Name Role Phone Magdalena Acosta MD Primary Care Provider [phone] Reason for Visit * Consultation (Routine) - Authorized Specialty Diagnoses / Procedures Referred By Contkrystle t Referred To Contact Rheumatology Diagnoses Weakness Kyra Haas MD [facility] [address] [place] [address] [facility] Rheumatology [address] [place] [phone] Referral ID Status Reason Start Date Expiration Date Visits Requested Visits Authorized [id number] Authorized Consult, Test & Treat PCP Updated and/or Approved 02/25/2023 02/25/2024 6 6 Encounter Details Date Type Department Care Team (Late st Contact Info) Description 03/18/2023 1:00 PM EDT Office Visit [place] [address] Kia Viramontes DO [facility] [place] [address] Magdalena Peralta MD [facility] [place] [address] Positive FRANCISCO (antinuclear antibody) Social History Tobacco Use Types Packs/Day Years [...] Sign Reading Time Taken Comments Blood Pressure 108/53 03/18/2023 12:43 PM EDT Pulse 96 03/18/2023 12:43 PM EDT Temperature 36.3 ??C (97.3 ??F) 03/18/2023 1 2:43 PM EDT Respiratory Rate 18 03/18/2023 12:4 3 PM EDT Oxygen Saturation 100% 03/18/2023 12: 43 PM EDT Inhaled Oxygen Concentration - - Weight 78.8 kg (173 lb 13.3 oz) 023 12:43 PM EDT Height - - Body Mass Index 32.85 02/17/2023 2:19 PM EDT documented in this encounter Progress Notes * Magdalena Peralta MD - 03/18/2023 1:00 PM EDT Rheumatology Outpatient Consultation Note Reason for Consult: The patient is seen at the request of Kyra Haas for evaluation and treatment of diffuse weakness and a positive FRANCISCO History of Present Illness: Purnima Thacker is a 67 y.o. 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 Kirstie has been seen for today's complaints by several people previously, including Rheumatology last year and Hematology for the leukopenia in July. She describes that in September of last year every thing changed. She describes leg/hip weakness which came on with relatively rapid onset, having trouble standing up from a chair. She does not describe a history of significant shoulder weakness. No scalp tenderness, vision changes, or jaw claudication. Her hands are stiff for 2-3 hours every morning, describes an inability to make a fist. Raynaud's phenomenon began within the last 1 - 1.5 years. She has some She has been able to regain some strength with PT. She has been referred today by Neurology who wonders if she needs a muscle biopsy for the weakness out of concern for myositis. She had an EMG last month that showed mild peripheral neuropathy and ?myopathic units in various muscles of the bilateral legs, mixed with normal appearing MUAPs. Recent serologic work up showed FRANCISCO 1:5120 speckled VIC negative Myositis panel with NUT SHELLER ab 149.1 (positive) Anti U1RNP IgG 119 Inflammatory markers negative Review of past labs shows leukopenia since 2017, with FRANCISCO 1:1280 last year. She has had no new skin rashes, no skin thickening. ROS: General (-)fevers, (-)chills, (-)night sweats, (-)wt loss/gain. HEENT (-)inflammatory eye disease, (-)vision loss, (-)epistaxis, (-)bleeding gums, (-)oral ulcers, (-)dry eyes, (-)dry mouth, (-)dysphagia, (-)GERD, (-)photo sensitivity CVS (-)chest pain, occasional palpitations Pulm Progressive BONILLA (related to aortic stenosis), (-)wheezes, (-)cough, (- )pleuritic pain GI (-)N/V, (-)abdominal pain, (-)hematochezia (-)hematuria, (-)dysuria MS (+)muscle weakness, (-)paralysis, (+)joint pain Endo (-)thyroid disorders, (-)diabetes Neuro (-)focal weakness, (-)paresthesias, (-)gait instability. Skin (+)Raynaud's, (-)rashes - no psoriasis Psych (-) mood disorder. Family Hx: No known family history of rheumatologic conditions (-)RA, (-)lupus, (-)scleroderma, (-)sjogren's, (-)gout Social Hx: (-)Smoking, (-)EtOH, (-)drugs Physical Examination: BP 108/53 (BP Location (NBP): Left arm, Patient Position: Sitting, BP Cuff Sizes: Adult (25-34 cm)) Pulse 96 Temp 36.3 ??C (97.3 ??F) (Temporal) Resp 18 Wt 78.8 kg (173 lb 13.3 oz) SpO2 100% BMI 32.85 kg/m?? General: AAOx3, NAD HEENT: (-)scleral injection, mucous membranes are moist, no oral mucosal ulcerations Skin: (-)ulcers, (-)rash Neck: Supple, no lymphadenopathy, full range of motion. Cardiovascular: RR, 4/6 murmur best appreciated RUSB Lungs: Clear to auscultation bilaterally. (-)R/R/W Back: Nontender over the spine and costovertebral angles bilaterally. Neuro: Alert and oriented x3. Able to stand from a chair without assistance of upper extremities. Load Out Supervisor strength 3+/5 bilaterally; otherwise large muscle groups tested strength intact throughout. Extremities: Shoulders: FROM, non-tender to palpation Elbows: FROM, (-)pain, (-)nodules Wrists: FROM, no swelling, non-tender Hands: No synovitis, no MCP compression tenderness, full claw and fist. Nailfold capillaroscopy with dropout and hyperemia. No nail pitting Knees: (-)effusions Ankles: FROM, non-tender, no swelling Laboratory Data: Reviewed in HPI Studies: See EMG 01/2023 under media tab Impression: Purnima Thacker is a 67 y.o. 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 Taken together, Ms. Thacker's findings of persistently positive FRANCISCO, persistent leukopenia, adult onset Raynaud's phenomenon, and nailfold capillary abnormalities are most consistent with mixed connective tissue disease. We will obtain inflammatory markers and CK today, but doubt she needs a muscle biopsy. Will start her on Hydroxychloroquine and see her back in a month. Reviewed indication for annual eye exam due to risk of retinal toxicity with jail Plaquenil use, which she already does. Recommendations: #mixed connective tissue disease Start hydroxychloroquine 200 mg qd Labs today: repeat FRANCISCO, dsDNA, complements, CBC, CMP, CK, ESR, CRP Follow up 1 month The patient was seen and discussed with Dr. Wander Peralta MD Rheumatology Fellow Pager: [phone] CC: Kyra Haas * Kia Viramontes DO - 03/18/2023 1:00 PM EDT ATTENDING ADDENDUM The patient's history was reviewed, and I interviewed and examined the patient with Dr. Peralta. Catalina with her summary, findings, and plan. documented in this encounter Plan of Treatment Upcoming Encounters Date Type Department Care Team (Late st Contact Info) Description 02/22/2024 4:15 PM EDT Office Visit Dermatology at [place] [address] [place] [address] Marek Bonilla MD [address] [facility] [place] [address] 06/05/2024 11:30 AM EST Office Visit [place] [address] Magdalena Peralta MD [facility] [place] [address] documented as of this encounter Results * Comprehensive metabolic panel (non-fasting) (03/18/2023 2:14 PM EDT) [facility] Glucose Lvl 93 65 - 199 mg/dL [facility] Comment:Diabetes: >=200 mg/d L plus symptoms BUN 18 8 - 18 mg/dL [facility] Creatinine 0.99 0.70 - 1.20 mg/dL [facility] Sodium 141 135 - 145 mmol/L [facility] Potassium 4.5 3.5 - 5.0 mmol/L [facility] Comment: Please note: ??Patients with WBC >100,000 may have falsely elevated Potassium levels. ??For accurate Potassium quantification in these patients send serum separator tube (gold top) for subsequent determinations. ??Contact the Clinical Chemistry Laboratory if there are any questions. Chloride 106 98 - 107 mmol/L [facility] CO2 24 22 - 31 mmol/L [facility] Anion Gap 11 5 - 15 mmol/L [facility] Calcium 10.0 8.5 - 10.5 mg/dL [facility] Total Protein 7.3 6.1 - 8.0 g/dL [facility] Albumin 4.3 3.2 - 5.2 g/dL [facility] AST 26 0 - 30 unit/L [facility] ALT 11 0 - 30 unit/L [facility] Alk Phos 91 35 - 105 unit/L [facility] Total Bilirubin 0.4 0.2 - 1.3 mg/dL [facility] Estimated GFR 62 >=60 mL/min/1. 73 m?? [facility] Comment: This patient's estimated [...] and symptoms in addition to eGFR. Blood 03/18/2023 2:14 PM EDT 03/18/2023 2:24 PM EDT Narrative Resulting Agency Comment Spec In Lab Kia Viramontes DO CHEMISTRY ORDERABL ES [facility] [place] [address] * (ABNORMAL) FRANCISCO Ab by IFA (03/18/2023 2:14 PM EDT) Antinuclear Ab Test ? Result ?Flag ??Unit ??RefValue Antinuclear Ab, HEp-2 ?Positive 1:2560 ??@ ?<1:80 (Negative) ??Substrate, S ? ADDITIONAL INFORMATION --------- ?Method: Immunofluorescence using HEp-2 cellular substrate. ??FRANCISCO Titer: ? 1:2560 ??FRANCISCO Pattern: ? Speckled ?Test Performed by: ?[facility] ?[address] [place] [address] ?Fisheries Diver: Raymond Chaudhry M.D. Ph.D.; CLIA# [id number] (A) [facility] Blood 03/18/2023 2:14 PM EDT 03/18/2023 3:02 PM EDT Narrative Resulting Agency Comment Spec In Lab Kia Viramontes DO CHEMISTRY ORDERABL ES [facility] [place] [address] * DNA Antibody (Double-Stranded) (03/18/2023 2:14 PM EDT) dsDNA Ab <0.6 <=15.0 IU/mL [facility] Comment: <10 negative 10-15 equivocal >15 positive This dsDNA antibody result was generated using a fluoroenzyme immunoassay on the Insem Spa 250 analyzer. This quantitative test is designed to detect IgG antibodies directed against double stranded DNA in human serum. The presence of antibodies that recognize dsDNA is a highly specific marker for systemic lupus erythematosus. Please note that as of 05/26/2022 that this testing is performed by the Special Chemistry Laboratory at [facility]. This change in testing location is associated with a change is testing method and reference intervals. Please review the results of this test in association with the posted reference intervals. Blood 03/18/2023 2:14 PM EDT 03/19/2023 7:19 AM EDT Narrative Resulting Agency Comment Spec In Lab Kia Mossew DO CHEMISTRY ORDERABL ES Performing Organization Address [facility] Co de Phone Number [facility] [place] [address] * CK (03/18/2023 2:14 PM EDT) CK, Total 38 0 - 160 unit/L [facility] Blood 03/18/2023 2:14 PM EDT 03/18/2023 2:24 PM EDT Narrative Resulting Agency Comment Spec In Lab Kia Erika Wander DO CHEMISTRY ORDERABL ES Performing Organization Address [facility] Co de Phone Number [facility] [place] [address] * C4 Complement (03/18/2023 2:14 PM EDT) C4 Complement 30 10 - 40 mg/dL [facility] Blood 03/18/2023 2:14 PM EDT 03/18/2023 2:24 PM EDT Narrative Resulting Agency Comment Spec In Lab Kia Erika Wander DO CHEMISTRY ORDERABL ES Performing Organization Address [facility] Co de Phone Number [facility] [place] [address] * C3 Complement (03/18/2023 2:14 PM EDT) C3 Complement 142 90 - 180 mg/dL [facility] Blood 03/18/2023 2:14 PM EDT 03/18/2023 2:24 PM EDT Narrative Resulting Agency Comment Spec In Lab Kia D Wander DO CHEMISTRY ORDERABL ES Performing Organization Address [facility]/ZIP Co de Phone Number [facility] [place] [address] * CRP, acute inflammation (03/18/2023 2:14 PM EDT) CRP 3.0 <=4.9 mg/L [facility] Blood 03/18/2023 2:14 PM EDT 03/18/2023 2:24 PM EDT Narrative Resulting Agency Comment Spec In Lab Kia Erika Wander HALL CHEMISTRY ORDERABL ES Performing Organization Address [facility] Co de Phone Number [facility] [place] [address] * (ABNORMAL) Sedimentation rate (03/18/2023 2:14 PM EDT) Sed Rate 68(H) 2 - 39 mm/hr [facility] Comment: Effective July 12, 2019 new capillary photometric technology has resulted in a change in reference ranges. It is recommended that each ESR result be reviewed with its own age appropriate reference range. Blood 03/18/2023 2:14 PM EDT 03/18/2023 2:24 PM EDT Narrative Resulting Agency Comment Spec In Lab Kia Mossew HEMATOLOGY ORDERAB LES Performing Organization Address [facility] Co de Phone Number [facility] [place] [address] documented in this encounter Visit Diagnoses Diagnosis Positive FRANCISCO (antinuclear antibody) Other and unspecified nonspecific immunological findings documented in this encounter Care Teams Band Top Maker Relationship Specialty Start Date End Date Magdalena Acosta MD [address] [place] [address] PCP - General Family Medicine 02/05/23 documented as of this encounter
--- OUTSIDE RECORDS SUMMARY | 2024-02-15 14:08 | XMS_ITS | Encounter Summary ---
Author Organization [facility] [place] [address] Care Team Providers Care Class A Regional Drivers Name Role Phone Junaid Deborah Shields APRN Primary Care Provider [phone] Encounter Details Date Type Department Care Team (Late st Contact Info) Description 11/09/2022 11:30 AM EDT - 11/09/2022 12:30 PM EDT [place] [address] Nitesh Escobedo MD [facility] [place] [address] CARDIAC CATHETERIZATION Social History Tobacco Use Types Packs/Day Years [...] Sign Reading Time Taken Comments Blood Pressure 133/81 11/09/2022 12:04 PM EDT Pulse 88 11/09/2022 12:04 PM EDT Temperature 36.8 ??C (98.2 ??F) 11/09/2022 1 1:24 AM EDT Respiratory Rate 18 11/09/2022 11:2 4 AM EDT Oxygen Saturation 100% 11/09/2022 12: 04 PM EDT Inhaled Oxygen Concentration - - Weight 82.1 kg (180 lb 14.4 oz) 023 11:24 AM EDT Height 154.9 cm (5' 1) 11/09/2022 11:2 4 AM EDT Body Mass Index 34.18 11/09/2022 11:24 AM EDT documented in this encounter Discharge Instructions * Patient Instructions* Blaze Marrero MD - 11/09/2022 1:06 PM EDT Radial [...] Center 02/05/2023 2:30 PM Marek Bonilla MD [facility] New Medications to be Picked Up None For questions regarding this document or issues relating to this hospitalization on the Medical Service, please contact your inpatient physician through the [facility] Jogger Operator . Issues afterhours and on weekends will be handled by the Hospitalist staff on-call. * Attachments The following attachments cannot be sent through Care Everywhere. * Coronary Angiogram: Post-op (Ecuadorean) * Right Heart Catheterization: Pulmonary Artery Catheterization: Post-op (Ecuadorean) documented in this encounter Medications at Time of Discharge Medication Sig Dispensed Refills Start Date End Date nystatin (MYCOSTATIN) 100,000 unit/gram Powder Apply topically 2 times daily as needed. 10/22/2022 OneTouch Verio test strips Strip USE DAILY 01/03/2022 Certified Security SolutionsTouch Delica Plus Lancet 33 gauge Misc USE [...] MD - 11/09/2022 11:20 AM EDT . [facility] Interventional Cardiology Adult Pre-Procedure H&P Update: Cardiac Catheterization Purnima Thacker [id number] 1955 Chief Complaint: BONILLA HPI: Purnima Thacker [...] Marrero MD Interventional Cardiology 11/09/22 11:43 AM [facility] Pager: [phone] documented in this encounter Plan of Treatment Upcoming Encounters Date Type Department Care Team (Late st Contact Info) Description 02/22/2024 4:15 PM EDT Office Visit Dermatology at [place] [address] [place] [address] Marek Bonilla MD [address] [facility] [place] [address] 06/05/2024 11:30 AM EST Office [place] [address] Magdalena Peralta MD [facility] [place] [address] documented as of this encounter Procedures Procedure Name Priority Date/Time Associated Diagnosis Comments CARDIAC CATHETERIZATION Routine 11/10/19 23 1:05 PM EDT Aortic valve stenosis, etiology of cardiac valve disease unspecified Cath Plmt Left Heart Cath & Arts W/Inj & Angio Img S&I ([id number]) 11/09/2022 11:51 AM EDT Aortic valve stenosis, etiology of cardiac valve disease unspecified EKG 12-LEAD Routine 11/09/2022 11:17 AM EDT Aortic valve stenosis, etiology of cardiac valve disease unspecified documented in this encounter Results * CARDIAC CATHETERIZATION (11/09/2022 1:05 PM EDT) Anatomical Region Laterality Modality Other Narrative 11/09/2022 2:01 PM EDT ?[facility] ? Cardiac Catheterization/Intervention Report ? Patient Name: Kirstie, Purnima M. ? Procedure Date: 11/09/2022 ? A #: [id number] ? Primary Physician: Nitesh Escobedo ? Case #: [id number] ? File Name: [id number] ? Catheterization Order Number: [id number] ? [facility] ? Final Report [place], [place] ? Patient Name: ? Purnima M. Kirstie ? ID#: ?[id number] ? : ?1955 ? Procedure Date: ? [...] was designated as ASA Class III. The [facility] clinical frailty scale ?is 4: Vulnerable. ? [...] Escobedo M.D. ? Electronically Signed by: Nitesh Escobedo M.D. ? Report Finalized: 11/09/2022 ??13:20 ? Nitesh Escobedo MD CARDIAC CATH ORDERAB LES * EKG 12 Lead (11/09/2022 11:17 AM EDT) Ventricular rate 87 BPM MUSE SYSTEM Atrial Rate 87 BPM MUSE SYSTEM P-R Interval 168 ms MUSE SYSTEM QRS Duration 96 ms MUSE SYSTEM Q-T Interval 380 ms MUSE SYSTEM QTC Calculated (Bezet) 457 ms MUSE SYSTEM Calculated P [place] 44 degrees MUSE SYSTEM Calculated R [place] 33 degrees MUSE SYSTEM Calculated T [place] 30 degrees MUSE SYSTEM INTERPRETATION Sinus rhythm Occasional Premature ventricular complexes Otherwise normal ECG When compared with ECG of 21-SEP-2016 12:26, Premature ventricular complexes are now Present CT interval has decreased Nonspecific T wave abnormality has replaced inverted T waves in Inferior leads I personally reviewed the tracing and edited the fellows interpretation Confirmed by fellow MD Anitha, Carissa ([id number]) on 11/09/2022 6:17:28 PM Confirmed by Elsa [...] MAR Action Action Date Dose Rate Site fentaNYL (pf) (50 mcg/mL) multi-dose injection ONCE PRN, Starting on Wed11/09/22 at 1211, Until Wed11/09/22 at 1259, Intra-Operative (Intra-Procedure), Routine Given 11/09/2022 12:11 PM EDT 12.5 mcg Left Arm heparin (porcine) (1,000 units/mL) injection ONCE PRN, Starting on Wed11/09/22 at 1230, Until Wed11/09/22 at 1259, Intra-Operative (Intra-Procedure), Routine Given 11/09/2022 12:30 PM EDT 4,000 Units Left Arm iohexoL (Omnipaque) (350 mg/mL) solution ONCE PRN, Starting on Wed11/09/22 at 1259, Until Wed11/09/22 at 1259, Intra-Operative (Intra-Procedure), Routine Given 11/09/2022 12:59 PM EDT 89 mLs lidocaine (Xylocaine) 1% (10 mg/mL) injection 3 mg 3 mg (0.3 mL), Subcutaneous, ONCE PRN, 1 dose, Starting on Wed11/09/22 at 1110, Until Wed11/09/22 at 1215, with discomfort with PIV insertion, Cath (Day of Procedure), Routine Given 11/09/2022 12:15 PM EDT 3 mLs Right Upper Outer Quadrant lidocaine (Xylocaine) 1% (10 mg/mL) injection ONCE PRN, Starting on Wed11/09/22 at 1218, Until Wed11/09/22 at 1259, Intra-Operative (Intra-Procedure), Routine Given 11/09/2022 12:18 PM EDT 3 mLs Right Arm midazolam (pf) (Versed) (1 mg/mL) injection ONCE PRN, Starting on Wed11/09/22 at 1209, Until Wed11/09/22 at 1259, Intra-Operative (Intra-Procedure), Routine Given 11/09/2022 12:09 PM EDT 0.5 mg Left Arm sodium chloride 0.9% infusion 200 mL/hr, Intravenous, CONTINUOUS, Starting on Wed11/09/22 at 1345, Until Wed11/09/22 at 1644, Recovery (Recovery-Hospital Unit) Continued Bag 11/09/2022 1:30 PM EDT 200 mL/hr 200 mL/hr verapamiL (Isoptin) (2.5 mg/mL) injection ONCE PRN, Starting on Wed11/09/22 at 1222, Until Wed11/09/22 at 1259, Administer over 2 Minutes, Intra-Operative (Intra-Procedure) Given 11/09/2022 12:22 PM EDT 2.5 mg documented in this encounter Active and Recently [...] MD) documented in this encounter Care Teams Class A Regional Drivers Relationship Specialty Start Date End Date Deborah Quiroga, MOBILE PRACTICE LEAD PCP - General Family Medicine 03/24/16 02/04/23 documented as of this encounter
--- OUTSIDE RECORDS SUMMARY | 2024-02-15 14:08 | XMS_ITS | Encounter Summary ---
[place] [address] Care Team Providers Care Publications Editor Name Role Phone Magdalena Acosta MD Primary Care Provider Reason for Referral * Consultation (Routine) - Authorized Specialty Diagnoses / Procedures Referred By Contac t Referred To Contact Rheumatology Diagnoses Weakness Kyra Haas MD [facility] [address] [place] [address] [facility] [address] [place] [phone] Referral ID Status Reason Start Date Expiration Date Visits Requested Visits Authorized [id number] Authorized Consult, Test & Treat PCP Updated and/or Approved 02/25/2023 02/25/2024 6 6 Encounter Details Date Type Department Care Team (Late st Contact Info) Description 02/25/2023 Transcribe Orders eDH Incoming Referrals [phone] Magdalena Acosta MD [address] [place] [address] Weakness Social History Tobacco Use Types Packs/Day Years [...] 4:15 PM EDT Office Visit Dermatology at [place] [address] [place] [address] Marek Bonilla MD [address] [place] [address] 06/05/2024 11:30 AM EST Office Visit [place] [address] Magdalena Peralta MD [facility] [place] [address] Scheduled Referrals Name Type Priority Associated Diagnoses Order Schedule Referral to Rheumatology Outpatient Referral Routine Weakness Ordered: 02/25/2023 documented as of this encounter Visit Diagnoses Diagnosis Weakness Other malaise and fatigue documented in this encounter Care Teams Publications Editor Relationship Specialty Start Date End Date Magdalena Acosta MD [address] [place] [address] PCP - General Family Medicine 02/05/23 documented as of this encounter
--- OUTSIDE RECORDS SUMMARY | 2024-02-15 14:08 | XMS_ITS | Encounter Summary ---
[place] [address] Care Team Providers Care Monitor Technician Name Role Phone Magdalena Acosta MD Primary Care Provider [phone] Reason for Visit * Reason Comments Annual Exam Encounter Details Date Type Department Care Team (Late st Contact Info) Description 02/05/2023 2:30 PM EDT Office Visit Dermatology at [address] [address] Marek Bonilla MD [address] [facility] [place] [address] Rosacea; Ocular rosacea; Nevus Social History Tobacco Use Types Packs/Day Years [...] Progress Notes * Marek Bonilla MD - 02/05/2023 2:30 PM EDT Problem: 1. Follow-up rosacea both cutaneous and ocular 2. 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 Her ocular rosacea is doing very well. She isvery pleased. She wonders whether or not she still needs to take the medication. She has been taking 50 mg once every morning. She has noted a new atypical appearing nevus on the upper back. She has been using metronidazole 0.75% gel roughly every other day for her face but does not need it anymore. 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 Her eyes/conjunctiva appear to be noninjected and well moisturized. She has a 4 mm atypical dark junctional melanocytic nevus on her left upper shoulder. She states that this is relatively new. Examination otherwise of the face the shoulders the chest back hands arms and forearms is benign. Assessment plan: Atypical nevus left shoulder 1. Today 4 mm punch was obtained and specimen was submitted submitted for pathologic analysis. 2. Closed with 4-0 Ethilon suture removal in 10 to 14 days Telangiectatic rosacea 1. Recommended taking doxycycline 50 mg 1 dose every other day for 2 months, and if doing well discontinue altogether CC: Deborah Quiroga APRN documented in this encounter Plan of Treatment Upcoming Encounters Date Type Department Care Team (Late st Contact Info) Description 02/22/2024 4:15 PM EDT Office Visit Dermatology at [address] [phone] Marek Bonilla MD [address] [place] [address] [place] [address] 06/05/2024 11:30 AM EST Office [place] [address] Magdalena Peralta MD [facility] [place] [address] documented as of this encounter Visit Diagnoses Diagnosis Rosacea Ocular rosacea Rosacea Nevus Benign neoplasm of skin, site unspecified documented in this encounter Care Teams Monitor Technician Relationship Specialty Start Date End Date Magdalena Acosta MD [address] [place] [address] PCP - General Family Medicine 02/05/23 documented as of this encounter
--- OUTSIDE RECORDS SUMMARY | 2024-02-15 14:08 | XMS_ITS | Encounter Summary ---
Author Organization [facility] [place] [address] Care Team Providers Care Credit Investigator Name Role Phone Deborah Quiroga ANURAG Primary Care Provider [phone] Encounter Details Date Type Department Care Team (Late st Contact Info) Description 11/02/2022 Orders Only [place] [phone] Emily Lyons [place] [facility] [address] Aortic valve stenosis, etiology of cardiac valve [...] PM EDT Office Visit Dermatology at [address] [place] [phone] Marek Bonilla MD [address] [place] [address] [place] [address] 06/05/2024 11:30 AM EST Office Visit [place] [phone] Magdalena Peralta MD [facility] [place] [address] documented as of this encounter Visit Diagnoses Diagnosis Aortic valve stenosis, etiology of cardiac valve disease unspecified documented in this encounter Care Teams Credit Investigator Relationship Specialty Start Date End Date Deborah Quiroga APRN PCP - General Family Medicine 03/24/16 02/04/23 documented as of this encounter
--- OUTSIDE RECORDS SUMMARY | 2024-02-15 14:08 | XMS_ITS | Encounter Summary ---
Author Organization [facility] [place] [address] Care Team Providers Care Bus Assistant Name Role Phone Magdalena Acosta MD Primary Care Provider [phone] Encounter Details Date Type Department Care Team (Late st Contact Info) Description 03/29/2023 Orders Only Cardiology at [address] [phone] Ranjan Delgado MD [facility] [place] [address] Severe aortic stenosis (Primary Dx) Social History Tobacco Use Types Packs/Day Years [...] 4:15 PM EDT Office Visit Dermatology at [address] [place] [phone] Marek Bonilla MD [address] [facility] [place]ERMATOLOGY [place], [place] [phone] 06/05/2024 11:30 AM EST Office [place] [phone] Magdalena Peralta MD [facility] [place] [address] Scheduled Orders Name Type Priority Associated Diagnoses Orde r Schedule CBC (with Diff) Lab Routine Severe aortic stenosis Expected: 04/01/2023, Expires: 03/28/2024 Comprehensive metabolic panel (non-fasting) Lab Routine Severe aortic stenosis Expected: 04/01/2023, Expires: 03/28/2024 EKG 12 Lead ECG Routine Severe aortic stenosis Expected: 06/29/2023 (Approximate) documented as of this encounter Visit Diagnoses Diagnosis Severe aortic stenosis- Primary Aortic valve disorders documented in this encounter Care Teams Bus Assistant Relationship Specialty Start Date End Date Magdalena Acosta MD [address] [place] [address] PCP - General Family Medicine 02/05/23 documented as of this encounter
--- OUTSIDE RECORDS SUMMARY | 2024-02-15 14:08 | XMS_ITS | Encounter Summary ---
Author Organization [facility] [place] [address] Care Team Providers Care Professional Caster Name Role Phone Magdalena Acosta MD Primary Care Provider [phone] Encounter Details Date Type Department Care Team (Latest Contact Info) Description 02/16/2023 Travel Social History Tobacco Use Types Packs/Day [...] 4:15 PM EDT Office Visit Dermatology at [address] [address] Marek Bonilla MD [address] [place] [address] [place] [address] 06/05/2024 11:30 AM EST [place] [address] Magdalena Peralta MD [facility] [place] [address] documented as of this encounter Visit Diagnoses Not on filedocumented in this encounter Care Teams Professional Caster Relationship Specialty Start Date End Date Magdalena Acosta MD [address] [place] [address] PCP - General Family Medicine 02/05/23 documented as of this encounter
--- OUTSIDE RECORDS SUMMARY | 2024-02-15 14:08 | XMS_ITS | Encounter Summary ---
Author Organization [facility] [place] [address] Care Team Providers Care Leadership Program Internship Name Role Phone Magdalena Acosta MD Primary Care Provider [phone] Encounter Details Date Type Department Care Team (Late st Contact Info) Description 03/29/2023 Notes Only Cardiology at [address] [phone] Vahid Plasencia, RN Social History Tobacco Use Types Packs/Day [...] as of this encounter Progress Notes * Vahid Plasencia, RN - 03/29/2023 2:04 PM EDT Ms. Thacker is referred by Dr. Maria Luz Mejia for consideration of treatment options for severe, symptomatic, aortic stenosis; please refer to records in media section for detailed history and assessment. In brief, the patient has had a surgical AVR in 2017 and recent echo showed severe aortic stenosis. She has been experiencing increased dyspnea on exertion. Her history includes the following: S/P AVR 2017; HTN; HLD; CKD; CVA; NICOLAS; Chronic Idiopathic Neutropenia and Obesity. Echo 09/15/2022: EF 55%, GEOVANNA 0.63; AVAi 0.35; pV 4.54; Gr 82/51; Mild AR; Moderate MR; Trace TR [facility] 11/09/2022: Non obstructive CAD STS 4.1 Plan:Schedule SDM clinic, diagnostics and frailty assessment. documented in this encounter Plan of Treatment Upcoming Encounters Date Type Department Care Team (Late st Contact Info) Description 02/22/2024 4:15 PM EDT Office Visit Dermatology at [place] [address] [facility] [place] [address] Marek Bonilla MD [address] [facility] [place] [address] 06/05/2024 11:30 AM EST [place] [phone] Magdalena Peralta MD [facility] [place] [address] documented as of this encounter Visit Diagnoses Not on filedocumented in this encounter Care Teams Leadership Program Internship Relationship Specialty Start Date End Date Magdalena Acosta MD [address] [place] [address] PCP - General Family Medicine 02/05/23 documented as of this encounter
--- OUTSIDE RECORDS SUMMARY | 2024-02-15 14:08 | XMS_ITS | Encounter Summary ---
[place] [address] Care Team Providers Care Meat Grinder Name Role Phone Magdalena Acosta MD Primary Care Provider [phone] Encounter Details Date Type Department Care Team (Latest Contact Info) Description 03/18/2023 2:30 PM EDT Laboratory Appointment Lab [place] [address] Positive FRANCISCO (antinuclear antibody) Social History Tobacco [...] 4:15 PM EDT Office Visit Dermatology at [address] [facility] [place] [address] Marek Bonilla MD [address] [facility] [place] [address] 06/05/2024 11:30 AM EST Office [place] [address] Magdalena Peralta MD [facility] [place] [address] documented as of this encounter Procedures Procedure Name Priority Date/Time Associated Diagnosis Comments HC PCH ANATITRE (ANDPATTERN) Routine 03/18/2023 2:14 PM EDT Positive FRANCISCO (antinuclear antibody) HC C-REACTIVE PROTEIN Routine 03/18/2023 2:14 PM EDT Positive FRANCISCO (antinuclear antibody) HC DNA AB DS ([place]) Routine 03/18/2023 2:14 PM EDT Positive FRANCISCO (antinuclear antibody) HEMOGRAM Routine 03/18/2023 2:14 PM EDT Positive FRANCISCO (antinuclear antibody) DIFFERENTIAL, AUTOMATED Routine 03/18/2023 2:14 PM EDT Positive FRANCISCO (antinuclear antibody) HC ESR-SEDIMENTATION RATE, BLOOD Routine 03/18/2023 2:14 PM EDT Positive FRANCISCO (antinuclear antibody) HC CBC,PLT & AUTO DIFF Routine 03/18/2023 2:14 PM EDT Positive FRANCISCO (antinuclear antibody) HC COMPLEMENT,C3 SERUM Routine 03/18/2023 2:14 PM EDT Positive FRANCISCO (antinuclear antibody) HC COMPLEMENT C4, PLASMA Routine 03/18/2023 2:14 PM EDT Positive FRANCISCO (antinuclear antibody) HC CREATINE PHOSPHOKINASE, SERUM Routine 03/18/2023 2:14 PM EDT Positive FRANCISCO (antinuclear antibody) HC VENIPUNCTURE Routine 03/18/2023 2:14 PM EDT Positive FRANCISCO (antinuclear antibody) documented in this encounter Results * (ABNORMAL) Differential, Automated (03/18/2023 2:14 PM EDT) Neutrophils % 71.2 % [facility] Neutr Abs (ANC) 2.26 1.70 - 6.10 x10(3)/mc L [facility] Lymphocytes % 18.2 % [facility] Lymphocytes Abs 0.6(L) 0.9 - 3.2 x10(3)/[facility] Monocytes % 9.7 % [facility] Monocyte Abs 0.3 0.3 - 0.9 x10(3)/[facility] Eosinophils % 0.3 % [facility] Eosinophils Abs 0.0 0.0 - 0.4 x10(3)/[facility] Basophils % 0.6 % [facility] Basophils Abs 0.0 0.0 - 0.1 x10(3)/[facility] Immature Gran % 0.00 % [facility] Comment: Immature granulocytes(IG's)percentage and absolute count will include metamyelocytes, myelocytes, and promyelocytes. Blood smears from CBCs yielding IG's will be scanned manually for concordance. If this scan disagrees with the automated IG or if promyelocytes are noted, a manual differential will be performed. Amanda Gran Abs 0.00 0.00 - 0.04 x10(3)/[facility] Blood 03/18/2023 2:14 PM EDT 03/18/2023 2:24 PM EDT Narrative Resulting Agency Comment Spec In Lab Magdalena Peralta MD HEMATOLOGY ORDERABLE S Performing Organization Address City/State/[facility] Co de Phone Number [facility] [place] [address] * (ABNORMAL) Hemogram (03/18/2023 2:14 PM EDT) WBC 3.2(L) 4.0 - 9.5 x10(3)/[facility] RBC 3.44(L) 4.00 - 5.21 x10(6)/[facility] Hemoglobin 11.1(L) 11.7 - 15.5 g/dL [facility] Hematocrit 32.9(L) 35.7 - 45.8 % [facility] MCV 95.6(H) 82.6 - 94.4 fL [facility] MCH 32.3(H) 27.1 - 32.0 pg [facility] MCHC 33.7 31.7 - 35.0 g/dL [facility] Platelets 144(L) 145 - 357 x10(3)/[facility]ORATORY RDWSD 42.6 37.0 - 46.0 [facility] RDWCV 12.3 11.5 - 14.1 % [facility] MPV 9.4 7.6 - 12.9 [facility] nRBC % Auto 0.0 % [facility] nRBC Abs Auto 0.000 0.000 - 0.000 x10(3)/[facility] Blood 03/18/2023 2:14 PM EDT 03/18/2023 2:24 PM EDT Narrative Resulting Agency Comment Spec In Lab Magdalena Peralta MD HEMATOLOGY ORDERABLE S Performing Organization Address City/[facility]/[place] [address] * (ABNORMAL) Sedimentation rate (03/18/2023 2:14 PM EDT) Sed Rate 68(H) 2 - 39 mm/hr [facility] Comment: Effective July 12, 2019 new capillary photometric technology has resulted in a change in reference ranges. It is recommended that each ESR result be reviewed with its own age appropriate reference range. Blood 03/18/2023 2:14 PM EDT 03/18/2023 2:24 PM EDT Narrative Resulting Agency Comment Spec In Lab Kia Viramontes DO HEMATOLOGY ORDERAB LES [facility] [place] [address] * CRP, acute inflammation (03/18/2023 2:14 PM EDT) CRP 3.0 <=4.9 mg/L [facility] Blood 03/18/2023 2:14 PM EDT 03/18/2023 2:24 PM EDT Narrative Resulting Agency Comment Spec In Lab Kia D Wander DO CHEMISTRY ORDERABL ES Performing Organization Address City/[facility]/ZIP Co de Phone Number [facility] [place] [address] * C3 Complement (03/18/2023 2:14 PM EDT) C3 Complement 142 90 - 180 mg/dL [facility] Blood 03/18/2023 2:14 PM EDT 03/18/2023 2:24 PM EDT Narrative Resulting Agency Comment Spec In Lab Kia D Wander DO CHEMISTRY ORDERABL ES Performing Organization Address [facility]/ZIP Co de Phone Number [facility] [place] [address] * C4 Complement (03/18/2023 2:14 PM EDT) C4 Complement 30 10 - 40 mg/dL [facility] Blood 03/18/2023 2:14 PM EDT 03/18/2023 2:24 PM EDT Narrative Resulting Agency Comment Spec In Lab Kia D Wander DO CHEMISTRY ORDERABL ES Performing Organization Address City/[facility]/ZIP Co de Phone Number [facility] [place] [address] * CK (03/18/2023 2:14 PM EDT) CK, Total 38 0 - 160 unit/L [facility] Blood 03/18/2023 2:14 PM EDT 03/18/2023 2:24 PM EDT Narrative Resulting Agency Comment Spec In Lab Kia Viramontes DO CHEMISTRY ORDERABL ES Performing Organization Address [facility] Co de Phone Number [facility] [place] [address] * DNA Antibody (Double-Stranded) (03/18/2023 2:14 PM EDT) dsDNA Ab <0.6 <=15.0 IU/mL [facility] Comment: <10 negative 10-15 equivocal >15 positive This dsDNA antibody result was generated using a fluoroenzyme immunoassay on the Videostrip 250 analyzer. This quantitative test is designed to detect IgG antibodies directed against double stranded DNA in human serum. The presence of antibodies that recognize dsDNA is a highly specific marker for systemic lupus erythematosus. Please note that as of 05/26/2022 that this testing is performed by the Special Chemistry Laboratory at [facility]. This change in testing location is associated with a change is testing method and reference intervals. Please review the results of this test in association with the posted reference intervals. Blood 03/18/2023 2:14 PM EDT 03/19/2023 7:19 AM EDT Narrative Resulting Agency Comment Spec In Lab Kia Viramontes DO CHEMISTRY ORDERABL Performing Organization Address [facility] de Phone Number [facility] [place] [address] * (ABNORMAL) FRANCISCO Ab by IFA (03/18/2023 2:14 PM EDT) Antinuclear Ab Test ? Result ?Flag ??Unit ??RefValue Antinuclear Ab, HEp-2 ?Positive 1:2560 ??@ ?<1:80 (Negative) ??Substrate, S ? ADDITIONAL INFORMATION --------- ?Method: Immunofluorescence using HEp-2 cellular substrate. ??FRANCISCO Titer: ? 1:2560 ??FRANCISCO Pattern: ? Speckled ?Test Performed by: ?[facility] ?[address] [place] [address] ?[employer]: Raymond Chaudhry M.D. Ph.D.; CLIA# [id number] ([id number]) [facility] Blood 03/18/2023 2:14 PM EDT 03/18/2023 3:02 PM EDT Narrative Resulting Agency Comment Spec In Lab Kia Viramontes DO CHEMISTRY ORDERABL ES [facility] [place] [address] * Comprehensive metabolic panel (non-fasting) (03/18/2023 2:14 PM EDT) Glucose Lvl 93 65 - 199 mg/dL [facility] Comment:Diabetes: >=200 mg/d L plus symptoms BUN 18 8 - 18 mg/dL [facility] Creatinine 0.99 0.70 - 1.20 mg/dL [facility] Sodium 141 135 - 145 mmol/L [facility] Potassium 4.5 3.5 - 5.0 mmol/L [facility] Comment: Please note: ??Patients with WBC >100,000 may have falsely elevated Potassium levels. ??For accurate Potassium quantification in these patients send serum separator tube (gold top) for subsequent determinations. ??Contact the Clinical Chemistry Laboratory if there are any questions. Chloride 106 98 - 107 mmol/L [facility] CO2 24 22 - 31 mmol/L [facility] Anion Gap 11 5 - 15 mmol/L [facility] Calcium 10.0 8.5 - 10.5 mg/dL [facility] Total Protein 7.3 6.1 - 8.0 g/dL [facility] Albumin 4.3 3.2 - 5.2 g/dL [facility] AST 26 0 - 30 unit/L [facility] ALT 11 0 - 30 unit/L [facility] Alk Phos 91 35 - 105 unit/L [facility] Total Bilirubin 0.4 0.2 - 1.3 mg/dL [facility] Estimated GFR 62 >=60 mL/min/1. 73 m?? [facility] [...] Lab Kia Viramontes DO CHEMISTRY ORDERABL ES [facility] [place] [address] documented in this encounter Visit Diagnoses Diagnosis Positive FRANCISCO (antinuclear antibody) Other and unspecified nonspecific immunological findings documented in this encounter Care Teams Meat Grinder Relationship Specialty Start Date End Date Magdalena Acosta MD [address] [place] [address] PCP - General Family Medicine 02/05/23 documented as of this encounter
--- OUTSIDE RECORDS SUMMARY | 2024-02-15 14:08 | XMS_ITS | Encounter Summary ---
Author Organization [facility] [place] [address] Care Team Providers Care Signal Maintenance Technician Name Role Phone Magdalena Acosta MD Primary Care Provider [phone] Encounter Details Date Type Department Care Team (Latest Contact Info) Description 02/05/2023 Travel Social History Tobacco Use Types Packs/Day [...] 4:15 PM EDT Office Visit Dermatology at [address] [address] Marek Bonilla MD [address] [place] [address] [place] [address] 06/05/2024 11:30 AM EST Office Visit [place] [address] Magdalena Peralta MD [facility] [place] [address] documented as of this encounter Visit Diagnoses Not on filedocumented in this encounter Care Teams Signal Maintenance Technician Relationship Specialty Start Date End Date Magdalena Acosta MD [address] [place] [address] PCP - General Family Medicine 02/05/23 documented as of this encounter
--- OUTSIDE RECORDS SUMMARY | 2024-02-15 14:08 | XMS_ITS | Encounter Summary ---
Author Organization [facility] [place] [address] Care Team Providers Care Resident Engineer Name Role Phone Deborah Quiroga APRN Primary Care Provider [phone] Reason for Referral * Consultation (Routine) - Closed Specialty Diagnoses / Procedures Referred By Crispin maxwell Referred To Contact Neurology Diagnoses Polyneuropathy Deborah Quiroga APRN [address] [place] [address] [facility] Neurology [address] [place] [phone] Referral ID Status Reason Start Date Expiration Date V isits Requested Visits Authorized [id number] Closed Consult, Test & Treat 10/29/2022 10/29/2023 1 1 Encounter Details Date Type Department Care Team (Latest Contact Info) Description 10/29/2022 Transcribe Orders eDH Incoming Referrals [phone] Deborah Quiroga APRN [address] [place] [address] Polyneuropathy (Primary Dx) Social History Tobacco Use Types [...] 4:15 PM EDT Office Visit Dermatology at [place] [address] [place] [address] Marek Bonilla MD [address] [place] [address] 06/05/2024 11:30 AM EST Office [place] [address] Magdalena Peralta MD [facility] [place] [address] Scheduled Referrals Name Type Priority Associated Diagnoses Orde r Schedule Referral to Neurology Outpatient Referral Routine Polyneuropathy Ordered: 10/29/2022 documented as of this encounter Visit Diagnoses Diagnosis Polyneuropathy- Primary Unspecified hereditary and idiopathic peripheral neuropathy documented in this encounter Care Teams Resident Engineer Relationship Specialty Start Date End Date Deborah Quiroga APRN PCP - General Family Medicine 03/24/16 02/04/23 documented as of this encounter
--- OUTSIDE RECORDS SUMMARY | 2024-02-15 14:08 | XMS_ITS | Encounter Summary ---
Author Organization [facility] [place] [address] Care Team Providers Care Hogshead Mat Assembler Name Role Phone Deborah Quiroga ANURAG Primary Care Provider [phone] Encounter Details Date Type Department Care Team (Late st Contact Info) Description 01/14/2023 Refill Dermatology at [address] [address] Lupe Connor RN Social History Tobacco Use Types Packs/Day [...] encounter Miscellaneous Notes * Telephone Encounter - Lupe Connor RN - 01/14/2023 9:24 AM EDT Patient had called yesterday requesting a refill of her Doxycycline. She stated she had about 11-13tablets left and she has a follow up with Dr. Bonilla on 02/05/2023. Patient is requesting a 3 month supply or 1 year supply of her medication for insurance purposes. She would like the medication called into [facility] in [facility]. Discussed with Dr. Bonilla and he has approved refill of the Doxycycline 50 mg take one capsule by mouth daily in the evenings dispense 30 capsules with 2 refills. Patient notified. documented in this encounter Plan of Treatment Upcoming Encounters Date Type Department Care Team (Late st Contact Info) Description 02/22/2024 4:15 PM EDT Office Visit Dermatology at [place] [address] [place] [address] Marek Bonilla MD [address] [place] [address] 06/05/2024 11:30 AM EST Office [place] [address] Magdalena Peralta MD [facility] [place] [address] documented as of this encounter Visit Diagnoses Not on filedocumented in this encounter Care Teams Hogshead Mat Assembler Relationship Specialty Start Date End Date Deborah Quiroga APRN PCP - General Family Medicine 03/24/16 02/04/23 documented as of this encounter
--- OUTSIDE RECORDS SUMMARY | 2024-02-15 14:08 | XMS_ITS | Encounter Summary ---
Author Organization [facility] [place] [address] Care Team Providers Care Paper Guillotine Operator Name Role Phone Deborah Quiroga APRN Primary Care Provider [phone] Encounter Details Date Type Department Care Team (Latest Contact Info) Description 07/03/2022 12:28 PM EST - 07/03/2022 1:35 PM EST Hospital Encounter Hematology [place] [address] Chronic idiopathic neutropenia Discharge Disposition: Home Social History Tobacco Use [...] Sig Dispensed Refills Start Date End Date OneTouch Verio test strips Strip USE DAILY [...] tablet Take 81 mg by mouth daily. dilTIAZem CD (Cardizem [...] daily. 02/05/2023 documented as of this encounter Plan of Treatment Upcoming Encounters Date Type Department Care Team (Late st Contact Info) Description 02/22/2024 4:15 PM EDT Office Visit Dermatology at [place] [address] [place] [address] Marek Bonilla MD [address] [place] [address] [place] [address] 06/05/2024 11:30 AM EST Office [place] [address] Magdalena Peralta MD [facility] [place] [address] documented as of this encounter Procedures Procedure Name Priority Date/Time Associated Diagnosis Comments HEMOGRAM Routine 07/03/2022 12:40 PM EST Chronic idiopathic neutropenia DIFFERENTIAL, AUTOMATED Routine 07/03/2022 12:40 PM EST Chronic idiopathic neutropenia HC CBC,PLT & AUTO DIFF Routine 12/02/202 2 12:40 PM EST Chronic idiopathic neutropenia COMPREHENSIVE METABOLIC PANEL (NON-FASTING) Routine 07/03/2022 12:40 PM EST Chronic idiopathic neutropenia documented in this encounter Results * (ABNORMAL) Differential, Automated (07/03/2022 12:40 PM EST) Neutrophils % 72.9 % [facility] Neutr Abs (ANC) 2.61 1.70 - 6.10 x10(3)/[facility] Lymphocytes % 18.4 % [facility] Lymphocytes Abs 0.7(L) 0.9 - 3.2 x10(3)/[facility] Monocytes % 8.4 % [facility] Monocyte Abs 0.3 0.3 - 0.9 x10(3)/[facility] Eosinophils % 0.0 % [facility] Eosinophils Abs 0.0 0.0 - 0.4 x10(3)/[facility] Basophils % 0.3 % [facility] Basophils Abs 0.0 0.0 - 0.1 x10(3)/[facility] Immature Gran % 0.00 % [facility] Comment: Immature granulocytes(IG's)percentage and absolute count will include metamyelocytes, myelocytes, and promyelocytes. Blood smears from CBCs yielding IG's will be scanned manually for concordance. If this scan disagrees with the automated IG or if promyelocytes are noted, a manual differential will be performed. Amanda Gran Abs 0.00 0.00 - 0.04 x10(3)/ L [facility] Blood 07/03/2022 12:4 0 PM EST 07/03/2022 1:03 PM EST Narrative Resulting Agency Comment Spec In Lab Markel Borjas MD HEMATOLOGY ORDERAB LES [facility] [place] [address] * (ABNORMAL) Hemogram (07/03/2022 12:40 PM EST) WBC 3.6(L) 4.0 - 9.5 x10(3)/[facility] RBC 3.61(L) 4.00 - 5.21 x10(6)/[facility] Hemoglobin 11.7 11.7 - 15.5 g/dL [facility] Hematocrit 34.5(L) 35.7 - 45.8 % [facility] MCV 95.6(H) 82.6 - 94.4 fL [facility] MCH 32.4(H) 27.1 - 32.0 pg [facility] MCHC 33.9 31.7 - 35.0 g/dL [facility] Platelets 171 145 - 357 x10(3[place] [place] 40.5 37.0 - 46.0 [facility] RDWCV 11.5 11.5 - 14.1 % [facility] MPV 9.2 7.6 - 12.9 fL [facility] nRBC % Auto 0.0 % [facility] nRBC Abs Auto 0.000 0.000 - 0.000 x10(3)/[facility] Blood 07/03/2022 12:4 0 PM EST 07/03/2022 1:03 PM EST Narrative Resulting Agency Comment Spec In Lab Markel Borjas MD HEMATOLOGY ORDERAB LES [facility] [place] [address] * (ABNORMAL) Comprehensive metabolic panel (non-fasting) (07/03/2022 12:40 PM EST) Glucose Lvl 92 65 - 199 mg/dL [facility] Comment:Diabetes: >=200 mg/d L plus symptoms BUN 22(H) 8 - 18 mg/dL [facility] Creatinine 0.80 0.70 - 1.20 mg/dL [facility] Sodium 139 135 - 145 mmol/L [facility] Potassium 4.2 3.5 - 5.0 mmol/L [facility] Comment: Please note: ??Patients with WBC >100,000 may have falsely elevated Potassium levels. ??For accurate Potassium quantification in these patients send serum separator tube (gold top) for subsequent determinations. ??Contact the Clinical Chemistry Laboratory if there are any questions. Chloride 105 98 - 107 mmol/L [facility] CO2 23 22 - 31 mmol/L [facility] Anion Gap 11 5 - 15 mmol/L [facility] Calcium 10.1 8.5 - 10.5 mg/dL [facility] Total Protein 7.6 6.1 - 8.0 g/dL [facility] Albumin 4.1 3.2 - 5.2 g/dL [facility] AST 25 0 - 30 unit/L [facility] ALT 14 0 - 30 unit/L [facility] Alk Phos 80 35 - 105 unit/L [facility] Total Bilirubin 0.3 0.2 - 1.3 mg/dL [facility] Estimated GFR 81 >=60 mL/min/1. 73 m?? [facility] Comment: This patient's estimated [...] and symptoms in addition to eGFR. Blood 07/03/2022 12:4 0 PM EST 07/03/2022 1:03 PM EST Narrative Resulting Agency Comment Spec In Lab Markel Borjas MD CHEMISTRY ORDERABL ES [facility] [place] [address] documented in this encounter Visit Diagnoses Diagnosis Chronic idiopathic neutropenia Other neutropenia documented in this encounter Care Teams Paper Guillotine Operator Relationship Specialty Start Date End Date Deborah Quiroga, HIM CODER PCP - General Family Medicine 03/24/16 02/04/23 documented as of this encounter
--- OUTSIDE RECORDS SUMMARY | 2024-02-15 14:08 | XMS_ITS | Encounter Summary ---
Author Organization [facility] [place] [address] Care Team Providers Care Parts Coordinator Name Role Phone Magdalena Acosta MD Primary Care Provider [phone] Encounter Details Date Type Department Care Team (Latest Contact Info) Description 03/18/2023 Travel Social History Tobacco Use Types Packs/Day [...] 4:15 PM EDT Office Visit Dermatology at [address] [address] Marek Bonilla MD [address] [place] [address] [place] [address] 06/05/2024 11:30 AM EST Office [place] [address] Magdalena Peralta MD [facility] [place] [address] documented as of this encounter Visit Diagnoses Not on filedocumented in this encounter Care Teams Parts Coordinator Relationship Specialty Start Date End Date Magdalena Acosta MD [address] [place] [address] PCP - General Family Medicine 02/05/23 documented as of this encounter
--- OUTSIDE RECORDS SUMMARY | 2024-02-15 14:08 | XMS_ITS | Encounter Summary ---
Author Organization [place] [address] Care Team Providers Care Roofing Machine Operator Name Role Phone Deborah Quiroga APRN Primary Care Provider [phone] Encounter Details Date Type Department Care Team (Latest Contact Info) Description 07/03/2022 1:36 PM EST - 07/03/2022 11:59 PM EST Hospital Encounter Hematology [place] [address] Discharge Disposition: Home Social History Tobacco Use [...] 4:15 PM EDT Office Visit Dermatology at [place] [address] [place] [address] Marek Bonilla MD [address] [facility] [place] [address] 06/05/2024 11:30 AM EST Office [place] [address] Magdalena Peralta MD [facility] [place] [address] documented as of this encounter Procedures Procedure Name Priority Date/Time Associated Diagnosis Comments FOLATE, SERUM Routine 07/03/2022 1:59 PM EST VITAMIN B12 Routine 07/03/2022 1:59 PM EST documented in this encounter Results * Folate, serum (07/03/2022 1:59 PM EST) Folate Lvl >20.0 4.8 - 24.2 ng/mL [facility] Blood Venous Draw / Unknown 07/03/2022 1:59 PM EST 07/03/2022 2:13 PM EST Narrative Resulting Agency Comment Spec In Lab Markel Borjas MD CHEMISTRY ORDERABL ES Performing Organization Address City/[facility]/ZIP Co de Phone Number [facility] [place] [address] * Vitamin B12 (07/03/2022 1:59 PM EST) Vitamin B-12 449 232 - 1,245 pg/mL [facility] Blood Venous Draw / Unknown 07/03/2022 1:59 PM EST 07/03/2022 2:13 PM EST Narrative Resulting Agency Comment Spec In Lab Markel Borjas MD CHEMISTRY ORDERABL ES Performing Organization Address [facility]/ZIP Co de Phone Number [facility] [place] [address] documented in this encounter Visit Diagnoses Not on filedocumented in this encounter Care Teams Roofing Machine Operator Relationship Specialty Start Date End Date Deborah Quiroga APRN PCP - General Family Medicine 03/24/16 02/04/23 documented as of this encounter
--- OUTSIDE RECORDS SUMMARY | 2024-02-15 14:08 | XMS_ITS | Encounter Summary ---
Author Organization [facility] [place] [address] Care Team Providers Care Automotive Upholsterer Name Role Phone Magdalena Acosta MD Primary Care Provider [phone] Reason for Visit * Auth/Cert (Routine) Specialty Diagnoses / Procedures Referred By Contac t Referred To Contact Diagnoses Symptomatic severe aortic stenosis with low ejection fraction NSTEMI, CHF Enrique Chua MD [facility] [place] [address] [facility] Referral ID Status Reason Start Date Expiration Date Visits Re quested Visits Authorized [id number] 1 1 Encounter Details Date Type Department Care Team (Late st Contact Info) Description 05/12/2023 2:50 PM EDT - 05/12/2023 3:50 PM EDT [place] [address] Antelmo Sharma MD [facility] [place] [id number] CARDIAC CATHETERIZATION Social History Tobacco Use Types Packs/Day Years Used Date Smoking Tobacco: Never Smokeless Tobacco: Never Alcohol Use Standard Drinks/Week Comments No 0 (1 standard drink = 0.6 oz pur e alcohol) none [facility] Inpatient Questions Answer Date Recorded Does Anyone [...] Sign Reading Time Taken Comments Blood Pressure 92/59 05/12/2023 7:00 AM EDT Pulse 90 05/12/2023 3:00 PM EDT Temperature 36.3 ??C (97.3 ??F) 05/12/2023 3:00 PM ED T Respiratory Rate 21 05/12/2023 3:28 PM EDT Oxygen Saturation 98% 05/12/2023 3:28 PM EDT Inhaled Oxygen Concentration - - Weight 74.5 kg (164 lb 3.9 oz) 05/12/2023 3:00 A M EDT Height 154.9 cm (5' 1) 05/08/2023 9:00 AM EDT Body Mass Index 31.29 05/16/2023 4:00 AM EDT documented in this encounter Discharge Summaries * Vinod Juárez PA - 05/22/2023 7:54 AM EDT Inpatient - Discharge Summary Patient Name: Purnima Thacker Patient Age: 67 y.o. Birthdate: 1955 Language: Tunisian Race: White Ethnicity: Not nor Admit Date: 05/08/2023 Discharge Date: 05/22/2023 Attending Physician: Alirio Hudson MD Follow-up Recommendations for Providers: Please continue routine management of cardiovascular risk factors including blood pressure, lipids,glucose, etc. Please note any medication changes. Patient to follow up with PCP, Magdalena Acosta MD, or Primary Aws Software Development Engineer, Maria Luz Mejia MD, in ~ 7-10 days. Patient to follow up with Sammying Machine Operator, Dr. Antelmo Sharma, in 2 weeks with an EKG, Echo, CBC, and CMP. Patient to follow up with Nephrology, their office to arrange. Rznr-Soayvn-td interval: After initial 30 day follow-up appointment , all TAVR patients will follow-up again in one year with an echo. 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 Secondary Diagnoses: Active Hospital Problems Diagnosis S/P TAVR (transcatheter aortic valve replacement) Cardiogenic shock Symptomatic severe aortic stenosis with low ejection fraction Mild coronary artery disease by [facility] 11/09/2022 Heart failure with reduced ejection [...] Tube Placement Right 05/18/2023 Laure Ricks PA [facility] INTERVENTIONL RAD PRG CATH PLMT LEFT HEART CATH & ARTS W/INJ & ANGIO IMG S&I N/A 11/09/2022 CORONARY ANGIOGRAPHY; W [facility],POSSIBLE PCI (WRVU 5.6) performed by Mario Alberto Escobedo MD at [facility] CATH LABS PRG COMBINED RIGHT & LEFT HEART CATH W/INJ L VENTRICULOGRAPHY, IMG S&I N/A 05/12/2023 COMBINED RIGHT & LEFT HEART CATH,INC INJ FOR L VENTRICULOGRAPHY (WRVU 5.99) performed by Antelmo Sharma MD at [facility] CATH LABS PRO AORTOPLAS FOR SUPRAVALV STEN N/A 09/21/2016 @AORTOPLASTY FOR SUPRAVALVULAR STENOSIS (WRVU 29.33) performed by Alirio Hudson MD at [facility] MAIN OR PRO REPLACE AORTIC VALVE (TAVR/FEDERICO)PERC FEMORAL ARTERY APPROACH 05/12/2023 @TRANSCATHETER AORTIC VALVE REPLACEMENT (TAVR), PERCUTANEOUS FEMORAL (WRVU 22.47) performed by Alirio Hudson MD at [facility] CATH LABS PRO REPLACEMENT PROSTHETIC AORTIC VALVE OPEN W CARDIOPULMONARY BYPASS HOMOGRF/STENT N/A 09/21/2016 @REPLACE AORTIC VALVE, OPEN, W\CPB, W\PROSTHETIC VALVE (WRVU 41.32) performed by Alirio Hudson MD at [facility] MAIN OR Prior To Admission Medications [...] Major Procedures/Operations: 05/12/23: Successful right transfemoral TAVR Cpwsx-sq-Tvzyh with a 23 mm Lai 3 THV. Left coronary protection with left main MINNA. Hospital Course: #Severe prosthetic s/p valve in valve TF TAVR #Low coronary heights s/p left main stent for coronary protection #Type 2 NSTEMI, present on arrival, resolved #Acute decompensated HFrEF #Cardiogenic shock #EVANS / Cardiorenal syndrome Purnima Thacker was admitted to [facility] on 05/08/2023 via the Cardiology Service [...] TAVR and she was brought to the laborer [place] the following morning where Drs. Alirio Hudson and Antelmo Sharma and their teams performed a transfemoral TAVR and LM stent.She tolerated the procedure and was brought to the [facility] intubated and on the above drips. She [...] if you have questions. Please call your Sammying Machine Operator's office if you have any discharge or drainage from your procedural sites. Your Sammying Machine Operator, Dr. Antelmo Sharma and/or the Corporate Statistical Financial Analyst may be reached at . Antibiotic prophylaxis: You will need to take antibiotics prior to many invasive tests and treatments, such as dental cleaning, which should be done every 6 months. Your primary care physician or your dentist can prescribe this medication. Please refer to the card with the [place] [employer] Guidelines for more information. You have been provided with a copy of this card. Please refer to the [place] [employer] Guidelines for more information. Good [...] friends, go to a movie, go to christian, etc. Heavy activities: No hunting, skiing, jogging, [...] should resume a low fat, low cholesterol, [place] [employer] Diet Driving: No restrictions. Shower/Bath: You may shower daily. No baths, soaking, or swimming for the first week. Wound care: Wash the sites daily with soap and rinse well, pat dry. Assess for any signs of infection such as increased redness, pain, warmth or drainage. Please call your painter airbrush's office if you have any discharge or drainage from your procedural sites. If there is a lot of swelling, apply mamta wraps during the day and remove at bedtime. Elevate your legs when you are sitting. Home oxygen therapy: N/A Follow up appointments: Please schedule a follow-up appointment with your PCP, Magdalena Acosta MD, or Primary Aws Software Development Engineer in ~ 7-10 days. You have a follow-up appointment with your Sammying Machine Operator, Dr. Antelmo Sharma, in 2 weeks with an EKG, Echo, and labs prior to your appointment. You will need follow-up with Nephrology, their office will arrange. Xrrv-Anihrj-zk interval: After initial 30 day follow-up appointment , all TAVR patients will follow-up again in one year with an echo. Cardiac Rehabilitation: Purnima Thacker was seen today regarding participation in the outpatient Phase 2 Cardiac Rehabilitation at [facility]. The patient agrees to a referral to this program. The referral will be sent at discharge and the patient should be contacted by the Program within 1- 2 weeks from discharge. Future Appointments and Orders Future Appointments and Orders Future Appointments Provider Department Dept Phone 07/29/2023 11:00 AM Magdalena Peralta MD Rheumatology at [facility] Arrive at: [facility] [phone] 02/11/2024 2:00 PM Marek Bonilla MD Dermatology at [place] Arrive at: [facility] [address] [phone] Future Orders Complete By Expires Type and Screen Future Surgery, [facility] SAME DAY PROGRAM ONLY) [GNO1459 Custom] 05/11/2023 Process Instructions: This test is intended ONLY for patients with upcoming surgery for testing prior to the day of surgery obtained through the same day program (4V or SDP). For ALL OTHER PATIENTS, order a Type and Screen (POE068) This order includes the physician order for an ABO Recheck if requested by the Blood Bank. Scheduling Instructions: Comments: Questions: Date of surgery: CBC (with Diff) [VEK554 Custom] 06/05/2023 12/05/2023 Process Instructions: INCLUDES: WBC, RBC, Hgb, Hct, Platelets, RBC Indices and Differential Scheduling Instructions: Comments: Questions: Comprehensive metabolic panel (non-fasting) [LAB17 Custom] 06/05/2023 08/20/2023 Process Instructions: INCLUDES: Calcium, T Protein, Albumin, AST, ALT, Alk Phos, T Bili, BUN, Creat, GFR, Glucose, Lytes. Scheduling Instructions: Comments: Questions: Echocardiogram Transthoracic [02608 CPT(R)] 06/05/2023 12/05/2023 Process Instructions: Scheduling Instructions: Questions: Where will study be performed?: [facility] Clinics Does the patient have Congenital Heart Disease?: Does patient require sedation?: GA rationale: EKG 12 Lead [98320 CPT(R)] 06/05/2023 12/05/2023 Process Instructions: Scheduling Instructions: Questions: Which location will this be performed?: [place] Is a rhythm strip needed?: No [facility] [EQ161 Custom] As directed Process Instructions: Scheduling Instructions: Questions: Device Needed: WALKER (E0143) Patient Height (cm): 154.9 cm (5' 0.98) Patient Weight: 75.4 kg (166 lb 3.2 oz) Diagnosis: Unsteady gait when walking Referral to Cardiac Rehab [OPE127 Custom] As directed Process Instructions: If no progress note charted, please enter Clinical details in comments. Scheduling Instructions: Questions: My question or request is: s/p TAVR. Cardiac rehab at [facility]. Referral to Home Health [REF34 Custom] As directed Process Instructions: If no progress note charted, please enter Clinical details in comments. Scheduling Instructions: Comments: DOCUMENTATION FOR VNA SERVICES PATIENT'S LOCATION: Purnima Thacker [address] [place] [address] [phone] (home) International Recruiter's Name: Irineo and brother Raymond In discussion with the attending physician, it is certified that this patient is under his/her careand that MD, or an CARROTER, MILD DISABILITIES TEACHER, or PA who is working directly with him/her, had a gogk-pa-oacs encounter that meets the physician qgkg-cr-cosa encounter requirements with this patient on 05/22/2023. [...] for managing ADLs. HOME HEALTH CARE AGENCY: [facility]. [address] [facility] [address] PHONE: [phone] FAX: [phone] Start of care: Ideally 24-48 hours after [...] patient's PCP: Magdalena Acosta MD [address] [facility] [phone] All VNA agencies which cover the area of patient's residence have been reviewed, either verbally joao writing, and patient has chosen the home health care agency noted. Questions: Disciplines Requested: Physical Therapy Occupational Therapy Discharge References/Attachments None Arrangements for VNA/home care: As above. (delete if no VNA) Signed: EKATERINA NAVARRETE [facility] Section of Cardiac Surgery Date: 05/22/2023 CC: Magdalena Acosta MD DelaneyMario Alberto maxwell MD [address] [place] [address] [place] [address] documented in this encounter Discharge Instructions * Patient Instructions* Vinod Juárez PA - 05/22/2023 9:32 AM EDT TAVR Discharge Instructions: Call your doctor if: You have a fever of greater than 101 degrees, shaking chills, if you develop redness or drainage from your procedure sites, or if you have questions. Please call your Sammying Machine Operator's office if you have any discharge or drainage from your procedural sites. Your Sammying Machine Operator, Dr. Antelmo Sharma and/or the Corporate Statistical Financial Analyst may be reached at . Antibiotic prophylaxis: You will need to take antibiotics prior to many invasive tests and treatments, such as dental cleaning, which should be done every 6 months. Your primary care physician or your dentist can prescribe this medication. Please refer to the card with the [place] [employer] Guidelines for more information. You have been provided with a copy of this card. Please refer to the [place] [employer] Guidelines for more information. Good [...] friends, go to a movie, go to christian, etc. Heavy activities: No hunting, skiing, jogging, [...] should resume a low fat, low cholesterol, [place] [employer] Diet Driving: No restrictions. Shower/Bath: You may shower daily. No baths, soaking, or swimming for the first week. Wound care: Wash the sites daily with soap and rinse well, pat dry. Assess for any signs of infection such as increased redness, pain, warmth or drainage. Please call your painter airbrush's office if you have any discharge or drainage from your procedural sites. If there is a lot of swelling, apply mamta wraps during the day and remove at bedtime. Elevate your legs when you are sitting. Home oxygen therapy: N/A Follow up appointments: Please schedule a follow-up appointment with your PCP, Magdalena Acosta MD, or Primary Aws Software Development Engineer in ~ 7-10 days. You have a follow-up appointment with your Sammying Machine Operator, Dr. Antelmo Sharma, in 2 weeks with an EKG, Echo, and labs prior to your appointment. You will need follow-up with Nephrology, their office will arrange. Qmtj-Dcfkhr-jl interval: After initial 30 day follow-up appointment , all TAVR patients will follow-up again in one year with an echo. Cardiac Rehabilitation: Purnima Gallegol was seen today regarding participation in the outpatient Phase 2 Cardiac Rehabilitation at [facility]. The patient agrees to a referral to [...] ins ( tef) Haven Ba, PT Pager: [phone] Physical Therapy Inpatient Rehabilitation Department * Nico [...] 0600 and on the weekends please page [phone]. * Jory Paniagua Magalie - 05/20/2023 3:52 PM EDT Nutrition Services [...] 13.3 oz) 02/17/23 79.8 kg (176 lb) *The following information was obtained via pt chart* Weight loss: not clinically significant Appetite: Excellent (75%-100%) Food allergies:no known food allergies Chewing/Swallowing difficulty: none Nausea/Vomiting: no nausea and no vomiting Last Bowel Movement: 05/20/23 Jory Paniagua Cyberathlete * Tong Mike, OT - 05/20/2023 3:16 [...] Tube Placement Right 05/18/2023 Laure Ricks PA [facility] INTERVENTIONL RAD PRG CATH PLMT LEFT HEART CATH & ARTS W/INJ & ANGIO IMG S&I N/A 11/09/2022 CORONARY ANGIOGRAPHY; W [facility],POSSIBLE PCI (WRVU 5.6) performed by Mario Alberto Escobedo MD at [facility] CATH LABS PRG COMBINED RIGHT & LEFT HEART CATH W/INJ L VENTRICULOGRAPHY, IMG S&I N/A 05/12/2023 COMBINED RIGHT & LEFT HEART CATH,INC INJ FOR L VENTRICULOGRAPHY (WRVU 5.99) performed by Antelmo Sharma MD at [facility] CATH LABS PRO AORTOPLAS FOR SUPRAVALV STEN N/A 09/21/2016 @AORTOPLASTY FOR SUPRAVALVULAR STENOSIS (WRVU 29.33) performed by Alirio Hudson MD at [facility] MAIN OR PRO REPLACE AORTIC VALVE (TAVR/FEDERICO)PERC FEMORAL ARTERY APPROACH 05/12/2023 @TRANSCATHETER AORTIC VALVE REPLACEMENT (TAVR), PERCUTANEOUS FEMORAL (WRVU 22.47) performed by Alirio Hudson MD at [facility] CATH LABS PRO REPLACEMENT PROSTHETIC AORTIC VALVE OPEN W CARDIOPULMONARY BYPASS HOMOGRF/STENT N/A 09/21/2016 @REPLACE AORTIC VALVE, OPEN, W\CPB, W\PROSTHETIC VALVE (WRVU 41.32) performed by Alirio Hudson MD at [facility] MAIN OR Social History: Patient lives alone. Home Setup: Pt lives on one level with tub shower and three steps to enter. DME: none used ACETYLENE BURNER Baseline ADL/Mobility: Independent with ADLs and IADLs. [...] awareness: WFL Vision & Perception: corrective lenses insurance claims adjuster Communication: WFL Range of motion, strength, coordination: [...] been seen for occupational therapy evaluation. Purnima Thacker presents with the following performance skill deficits [...] Discharge Disposition (OT): swing bed rehabilitation facility, intermediate facility(vs home with support for IADLs) Other [...] Discharge planning. Total Minutes, Occupational Therapy: 28 ([id number]) OT Evaluation Code Rationale: Diagnosis & Pertinent Co-Morbidities affecting Plan of Care: see PMHx Occupational Profile & Client History: Brief Expanded Extensive x Assessment of Occupational Performance: 1-3 performance deficits 3-5 performance deficits x 5 + performance deficits Clinical Decision Making: Low Moderate High x Clinical decision making of moderate complexity using standardized patient assessment instrument and measurable assessment of functional outcome. Pager: [phone] TONG MIKE OT 05/20/2023 Occupational Therapy Rehabilitation [...] 0600 and on the weekends please page [phone]. * Rylie Rodriguez MD - 05/19/2023 3:59 [...] and plan. Cynthia Blackburn MD Nephrology Pager: [phone] * Diana Espino - 05/19/2023 1:49 PM EDT Oyster Culler Encounter Note Patient Name: Purnima Thacker : [id number] MR#: [id number] Admit Date: 05/08/2023 9:14 AM Hospital Day [...] Follow-up: As needed. Time in Direct Care: Piotr Espino 05/19/2023 * Henrik Navarrete PTA - [...] agreeable to rehab), ad use Assessment: Purnima Magalie Thacker was seen today for physical therapy [...] returning home alone. Anticipated Discharge Disposition (PT): intermediate facility, swing bed rehabilitation facility Consult Recommendations: [...] as stated. Total Minutes, Physical Therapy: 38 ([phone]) Henrik Navarrete ACETYLENE BURNER Pager: [phone] Physical Therapy Inpatient Rehabilitation Department * Nico [...] -- 05/18 0701 - 05/19 0700 In: 184 [P.O.:1840] Out: 1974 [Urine:1950] Admit weight: 76.4 [...] 0600 and on the weekends please page [phone]. * Laure Ricks PA - 05/19/2023 7:56 [...] Ricks PA-C Interventional Radiology IR Team Pager [phone] * Consuelo Espinoza RN - 05/18/2023 4:13 PM EDT ANGIO NURSING DATABASE Name: Purnima Thacker Date of : 1955 AGE: 67 y.o. [address]: [address] [place] [phone] (home) Mobile: No relevant phone numbers on [...] fraction I35.0 Mild coronary artery disease by [facility] 11/09/2022 I25.10 Heart failure with reduced [...] and plan. Cynthia Blackburn MD Nephrology Pager: [phone] * Khushi Magdalena L, JOCKEY AGENT - 05/18/2023 10:51 AM EDT Images from the original note were not included. [facility] [phone] STRUCTURAL HEART DISEASE CONSULTATION NOTE PRIMARY CARE [...] stenosis. She is now status post TAVR Sbreg-gc-Mgrgn with a 23 mm Lai 3 THV 05/12/[address] Sharma. Preliminary findings: Successful right transfemoral TAVR Vhpmu-cy-Cgxia with a 23 mm Lai 3 THV. [...] perforation. Interval Events: - 05/12 Transferred to [facility] post- TAVR for pressor/inotropic support (Levo, [...] ejection fraction Mild coronary artery disease by [facility] 11/09/2022 Heart failure with reduced ejection [...] tablet 81 mg 81 mg Oral Daily Mara Serrano APRN 81 mg at 05/18/23 0826 ondansetron (pf) (Zofran) (2 mg/mL) injection 4 mg 4 mg Intravenous Q8H PRN Mara Serrano APRN4 mg at 05/12/23 0736 pantoprazole EC (Protonix) tablet 40 mg 40 mg Oral Daily Mara Serrano APRN 40 mg at 05/18/23 0826 Or pantoprazole (Protonix) injection 40 mg 40 mg Intravenous Daily Mara Serrano APRN 40 mg at 05/12/23 1004 senna-docusate (Pericolace) 8.6-50 mg per tablet 2 tablet 2 tablet Oral Daily Mara Serrano APRN 2 tablet at 05/16/232111 bisacodyL (Dulcolax) suppository 10 mg 10 mg Rectal Daily PRN Mara Serrano APRN melatonin tablet 6 mg 6 mg Oral Nightly PRN Mara Serrano APRN 6 mg at 05/17/232024 influenza vaccine [...] Right pleural effusion Cardiogenic shock, recovered Purnima Mejias Kirstie is a 67 y.o. female with a past medical history significant for history of SAVR 09/2016 (bovine pericardial 25 mm), HFrEF, HTN, DLP, NICOLAS, mixed connective tissues disease, and other chronic medical comorbidities, who has been admitted to the cardiovascular service with acute on chronic decompensated systolic heart failure in the context of bioprosthetic aortic valve stenosis. She is now status post TAVR Lutmz-fy-Ceqdd with a 23 mm Lai 3 THV [...] Magdalena Puri APRN Structural Heart Team Pager [phone] Team Office Please see addendum by Dr. Sharma for final plan and recommendations Associated attestation - Antelmo Sharma MD - 05/19/2023 10:52 PM EDT I have reviewed Magdalena Puri APRN's above history and I agree with the details as written. The assessment and plan were formulated in discussion with me and I agree with them as documented. Antelmo Sharma MD Pager [phone] * Nico Palacios PA - 05/18/2023 8:13 [...] 0600 and on the weekends please page [phone]. * JudiLoli eid, PT - 05/17/2023 5:27 [...] seconds. -(Nerissa et al., 2008) References: Sriram Mackay, Corina Louise et al. (2000). Lower extremity function and subsequent disability: consistency across studies, predictive models, and value of gait speed alone compared with the short physical performance battery. J Gerontol A Biol Sci Med Sci 55(4): M221-31. Nerissa S, Lucinda D, Enedelia P, Sim R, Asad P, Fredo [...] returning home alone. Anticipated Discharge Disposition (PT): intermediate facility, swing bed rehabilitation facility Consult Recommendations: [...] plan as stated. Time IN / OUT: 9446-7050 Total Minutes, Physical Therapy: 54 Billing Code: te-sx2, te-f, angely HERNANDEZ PT Pager: [phone] Physical Therapy Inpatient Rehabilitation Department * Cynthia [...] Well controlled. Cynthia Blackburn MD Nephrology Pager: [phone] * Mara Serrano, JOCKEY AGENT - 05/17/2023 8:26 AM EDT Cardiac Surgery [...] Tubes/Lines/Drains: ROSAURA Art Assessment/Plan: 67 y.o. female 5 Days Post-Op [...] - improving Secondary to cardiogenic shock and YDLAN Responding well to lasix. 40 iv x1 [...] 0600 and on the weekends please page [phone]. * Guerda Del Valle - 05/16/2023 10:44 AM EDT Nutrition Services Note - Low Nutrition Acuity Purnima Thacker is a 67 y.o. female Reason for intervention: hospital day 9 Nutrition Plan: Continue diet order Encourage good PO Anthony and John noted Added special serve: open containers Monitor weight Patient scheduled for a hospital day 9 nutrition evaluation. Manager Quality met with pt at bedside. Pt reports that her appetite and PO has much improved since admission. Denies nausea/vomiting or trouble chewing/swallowing. Manager Quality provided snack list but pt not interested in adding snacks at this time. Her only concern was that she is worried that she will eat too much which will cause too much pressure in her stomach. Manager Quality assured pt and suggested eating smaller but [...] Last Bowel Movement: 05/10/23 Guerda Del Valle Cyberathlete * Vinod Juárez PA - 05/16/2023 10:19 [...] Tubes/Lines/Drains: Art, PIV Assessment/Plan: 67 y.o. female 4 Days Post-Op [...] 0600 and on the weekends please page [phone]. * Michael Jeffers MD - 05/16/2023 8:11 AM EDT Images from the original note were not included. Hypertension-Nephrology Inpatient Follow-up Purnima Thacker [id number] 1955 ID: 67 y.o. old female seen [...] IRONSAT 12 (L) 05/16/2023 SFOLATE >20.0 07/03/2022 [id number] 07/03/2022 Lab Results Component Value Date [...] Dr. Ayoub. Please contact me at phone: [phone] or pager: [phone] with any questions. Michael Jeffers MD Nephrology [...] -Nephrology consulted, labs and renal US ordered -Luna removed, ambulated around the unit -bilateral pleural [...] soft b/l, no evidence of hematoma. Tubes/Lines/Drains: RIJ, Art, PIV Assessment/Plan: 67 y.o. female 3 Days [...] 0600 and on the weekends please page [phone]. * Hortencia Cody MD - 05/15/2023 2:07 [...] 05/09/23399 76.8 kg (169 lb 5 oz) Micro: Recent Labs 05/11/23 192 URINECULTURE 50,000-99,000 cfu/ml Normal mucosal herman Susceptibility testing not routinely performed for Coagulase Negative Staphylococcus species and other Gram Positive organisms from urine. No results for input(s): GRAMSTAIN, BFCX, LOWERRESPCX, TISSUECX in the last 720 hours. No results for input(s): BLOODCX in the last 720 hours. T/L/D Art 05/11 ASSESSMENT, MANAGEMENT, and DECISION MAKIN y.o. [...] not included. Hypertension-Nephrology Inpatient Follow-up Purnima Thacker [id number] 1955 ID: 67 y.o. old female seen [...] HGB 7.8 (L) 05/13/2023 SFOLATE >20.0 07/03/2022 [id number] 07/03/2022 Lab Results Component Value Date [...] Dr. Ayoub. Please contact me at phone: [phone] or pager: [phone] with any questions. Michael Jeffers MD Nephrology [...] -- 2.01* Last 3 LFTs Recent Labs 05/14/2310905/13/2311405/12/23 0600 AST 319* 792* 1,435* ALT 437* 903* 1,174* ALKPHOS 86 85 100 BILITOT 0.4 0.5 0.9 BILIDIR -- 0.3 -- Last Ca, Mg, Phos Recent Labs 05/14/2305/09/23 0400 05/08/23 1600 05/08/23 1138 CALCIUM 8.5 [...] intact. Musculoskeletal: ROM: WFL Strength: B LE's 4/ Bed Mobility: Supine ->Sit: not assessed; up [...] outlined inthis evaluation. HAVEN BA, PT Pager: [phone] Physical Therapy Inpatient Rehabilitation Department Time IN / OUT: 7021-1623 Total time: Total Minutes, Physical Therapy: 30 [...] PAP 42/14; CI 3.1 Drips: Mil 0.125 10/700 - 05/14 0700 In: 1119.6 [P.O.:660; I.V.:449.6] [...] soft b/l, no evidence of hematoma. Tubes/Lines/Drains: RIJ, Rubens, ROSAURA Assessment/Plan: 67 y.o. female 2 [...] 0600 and on the weekends please page [phone]. * Antelmo Sharma MD - 05/14/2023 7:56 AM EDT Images from the original note were not included. [facility] [address] [id number] STRUCTURAL HEART DISEASE CONSULTATION NOTE PRIMARY CARE [...] stenosis. She is now status post TAVR Lgspu-mb-Dbtjv with a 23 mm Lai 3 THV 05/12/[address] Sharma. Preliminary findings: Successful right transfemoral TAVR Bulzb-fu-Ogkob with a 23 mm Lai 3 THV. [...] perforation. Interval Events: - 05/12 Transferred to CV post- TAVR for pressor/inotropic support (Levo, vaso, [...] ejection fraction Mild coronary artery disease by [facility] 11/09/2022 Heart failure with reduced ejection [...] (!) 85/57 97 % 3 L/min NC 05/13/231999 -- (!) 105 bpm (!) 107 26 [...] stenosis. She is now status post TAVR Bikre-ce-Mrvaj with a 23 mm Lai 3 THV 05/12/[address] Sharma. Janet TAVR case notable for coronary LAD protective MINNA. Status post TAVR, the patient was transferred to CV for pressor and inotropic support. Pressors weaned overnight 05/12. Cardiac indices by thermodilution remained >3 with continued Milrinone 0.125 mcg/kg/min prior to PAC removal. EKG todayNSR with stable CO/QRS intervals. Hemoglobin slowly down-trending (8.2-> 7.8-> 7.2). [...] Brody Kaplan APRN Structural Heart Team Pager [phone] Team Office Please see addendum by Dr. [...] exposure. Nephrology consultationtoday. Antelmo Sharma MD Pager [phone] * Antelmo Cardenas RN - 05/14/2023 5:18 AM EDT Pt AOx4, complaining of mild/moderate generalized pain (states her Meloxicam is effective at home) currently refusing prn oxycodone. NAEON, hemodynamically stable on Milrinone, Maps >65, ST in yny505's down to NSR with frequent multifocal PVC's. [...] from the original note were not included. [facility] [place] [address] [id number] STRUCTURAL HEART DISEASE PROGRESS NOTE PRIMARY CARE [...] stenosis. She is now status post TAVR Zdaqe-ar-Tmfvz with a 23 mm Lai 3 THV 05/12/[address] Sharma. Preliminary findings: Successful right transfemoral TAVR Sugge-xj-Xsevq with a 23 mm Lai 3 THV. [...] ejection fraction Mild coronary artery disease by [facility] 11/09/2022 Heart failure with reduced ejection [...] stenosis. She is now status post TAVR Jixpc-ia-Kepxc with a 23 mm Lai 3 THV 05/12/[address] Sharma. Janet TAVR case notable for coronary LAD protective MNINA. Status post TAVR, the patient was transferred to [facility] for pressor and inotropic support. Pressors weaned overnight. Cardiac indices by thermodilution remain greater than 3 with continued Milrinone 0.125 mcg/kg/min. EKG today NSR with stable CO/QRS intervals. Hemoglobin 7.8 today from 8.5, likely [...] Brody Kaplan APRN Structural Heart Team Pager [phone] Team Office Please see addendum by Dr. [...] DAPT moving forward. Antelmo Sharma MD Pager [phone] * Bonita Miguel PA - 05/13/2023 8:30 AM EDT Cardiac Surgery Progress Note Purnima Thacker is a 67 y.o. 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 PMH of s/p tissue AVR (2017), mixed connective tissue disease HTN, HLD, NICOLAS, diverticulosis, rosacea, essential tremor, and depression. 24h Events: From laborer gold leaf for above procedure Extubated at ~1600 to [...] soft b/l, no evidence of hematoma. Tubes/Lines/Drains: Luna, RIJ, A-line, Art, PIV Assessment/Plan: 67 y.o. [...] 0600 and on the weekends please page [phone]. * Onelia Schwartz MD - 05/12/2023 1:44 [...] replacement therapy. Patient seen and examined. Purnima M Kirstie is a 67 y.o. female has issues that include: Active Hospital Problems Diagnosis S/P TAVR (transcatheter aortic valve replacement) Cardiogenic shock Symptomatic severe aortic stenosis with low ejection fraction Mild coronary artery disease by [facility] 11/09/2022 Heart failure with reduced ejection [...] FiO2 weaned to 40%. 1105: ABG 7.34/42/73/22 6245-7270: SBT performed and passed on these settings [...] PCP: Magdalena Acosta MD PCP phone number: [phone] Date of Admission: 05/08/2023 ( Hospital Day [...] 0.375 mcg/kg/min (05/12/23599) [SEP Hold] DOBUTamine Stopped (05/12/23 012) [SEP Hold] NORepinephrine 6 mcg/min (05/12/23 06) Ventilator Settings: Mode: , SET RR: TV: PEEP: FiO2: VARIABLES PATIENT RR: PIP: Pplateau: SpO2: OUTPUT Resp: (!) 31 SpO2: 94 % ABG (Arterial Blood Gas) Recent Labs 05/12/23 0705/12/2331705/12/2310505/11/23193905/11/23 144 PHART -- 7.34* 7.34* -- -- BOM5LEL -- 30* 30* -- -- PO2ART -- 72* 81* -- -- BNQ5RVJ -- 16.0* 15.7* -- -- LACTATEVEN 2.4* 2.7* 2.7* 4.8* 2.9* VBG (Venous Blood Gas) Recent Labs 05/12/23 0700 05/12/23 0318 05/12/2310505/11/23193905/11/231446 LACTATEVEN 2.4* 2.7* 2.7* 4.8* 2.9* Mixed Venous Sat Recent Labs 05/12/23 0508 05/12/23 0321 05/12/23 0114 05/12/23 0030 [id number] 30.7 32.7 37.3 25.1 Objective: Vitals Last [...] redness;no swelling;no warmth 05/11/231999 Labs: Recent Labs 05/12/2310405/11/232 05/10/238 05/09/23 0400 05/08/23 1138 WBC 9.0 7.0 5.2 6.4 4.1 HGB 9.8* 11.1* 10.2* 10.2* 10.2* HCT 28.7* 32.7* 30.2* 30.3* 29.6* PLATELET 186 165 151 151 136* MCV 95.3* 95.1* 97.1* 96.2* 97.0* Recent Labs 05/12/2359905/12/2310405/11/232 05/10/238 05/09/23 0400 05/08/23 1600 05/08/23 1138 NA [...] who have questions please contact the health coronary care unit nurse that requested your imaging first. Cardiac for [...] who have questions please contact the health coronary care unit nurse that requested your imaging first. Angiogram Abdomen & Pelvis w Contrast (Generic) [...] who have questions please contact the health coronary care unit nurse that requested your imaging first. Chest One View (Exam End: 05/11/2023 11:45 [...] who have questions please contact the health coronary care unit nurse that requested your imaging first. Chest One [...] who have questions please contact the health coronary care unit nurse that requested your imaging first. Assessment & [...] and inotrope. She is planned for a cfovw-gd-bpijv TAVR this morning, which should hopefully improve her cardiac function. Neuro #ANNIE Cardiovascular #Cardiogenic shock #Critical aortic stenosis - Trend CI, Khushi numbers - milrinone, vasopressin, norepinephrine - TAVR this morning - Continue diuresis as needed -continue home ASA -continue home spironolactone Pulmonary #Flash pulmonary edema - Currently on 6L NC - Diurese as needed - Cardiogenic shock management as above Renal/Fluid/Electrolytes #EVNAS, likely 2/2 cardiogenic shock --TAVR and shock [...] MD, FACP, FACC Section of Cardiovascular Medicine [facility] Waste Eliminationslab depiler operator [facility] * Noreen Deutsch RN - 05/12/2023 5:21 [...] ejection fraction Mild coronary artery disease by [facility] 11/09/2022 Heart failure with reduced ejection [...] 05/11/2023 4:11 PM EDT Reported off to FOOD OPERATIONS MANAGER and pt transferred over in the bed for higher level of care. * Antelmo Sharma MD - 05/11/2023 9:45 AM EDT Images from the original note were not included. [facility] [address] [id number] STRUCTURAL HEART DISEASE CONSULTATION NOTE PRIMARY CARE [...] who had been referred for possible TAVR dlklr-nu-dienw evaluation. Her primary symptoms are of dyspnea [...] otherwise negative. Ms. Thacker is originally from [facility]. 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 She states that, [...] ejection fraction Mild coronary artery disease by [facility] 11/09/2022 Heart failure with reduced ejection [...] tablet 40 mEq 40 mEq Oral Q4H Cristina Velazquez MD Or potassium chloride ER (Klor-Con M) crystal tablet 20 mEq 20 mEq Oral Q4H PRCristina Baker MD 20 mEq at 05/08/232037 FAMILY HISTORY: [...] hour(s)) Lactate, whole blood, send to lab ([facility]) Result Value Ref Range Lactate WB 3.1 (H) 0.5 - 2.2 mmol/L Heparin (unfractionated) Level Result Value Ref Range Heparin UFH Level 0.46 IU/mL Lactate, whole blood, send to lab ([facility]) Result Value Ref Range Lactate WB 1.8 [...] leads Confirmed by MD Harshil, Enrique Bell ([id number]) on 05/10/2023 8:11:46 AM Cardiac Cath 11/09/2022 [...] tentative plan had been for TAVR JANET ferrera given her chronological age. Cardiac cath 11/09/2022 notable for non-obstructive coronary disease. TAVR CTAs planned for today. Will review her case with cardiac surgery to determine best timing and therapies for her valve intervention. Addendum 05/11/2023 6:48 PM Due to decompensating HFrEF, she was transferred to [facility] this afternoon for further management. TAVR CT imaging support for adequate ileofemoral access. Given her acute deterioration today, will planfor RTF TAVR on 05/12/2023. Brody Kaplan APRN Structural Heart Disease Pager [phone] Please see addendum by Dr. Sharma for final plan I have seen the patient in person and reviewed Brody Eusebio OSBORN's above history and I agree with the [...] signed and dated. Antelmo Sharma MD Pager [phone] * Harini Lance MD - 05/11/2023 6:06 AM EDT Images from the original note were not included. Cardiology Progress Note Patient info: Name: Purnima Thacker : 1955 PCP: Magdalena Acosta MD PCP phone number: [phone] Date of Admission: 05/08/2023 ( Hospital Day [...] warmth;no swelling;no redness 05/08/231999 Labs: Recent Labs 05/11/2344105/10/2322705/09/230 05/08/23 1138 WBC 7.0 5.2 6.4 4.1 HGB 11.1* 10.2* 10.2* 10.2* HCT 32.7* 30.2* 30.3* 29.6* PLATELET 165 151 151 136* MCV 95.1* 97.1* 96.2* 97.0* Recent Labs 05/11/2344105/10/2322705/09/230 05/08/23 1600 05/08/23 1138 NA 134* 134* 137 -- 139 CL 99 102 102 -- 105 CO2 14* 20* 20* -- 20* K 4.6 4.1 4.4 3.9 4.2 MAGNESIUM -- -- -- 0.82 0.76 PHOS -- -- -- -- 4.7* CALCIUM 9.6 9.3 9.3 -- 9.4 BUN 42* 30* 31* -- 27* CREATININE 1.24* 0.90 1.03 -- 1.02 LFTs Recent Labs 05/11/23441 05/10/23 0228 05/09/23 0400 PROT 7.2 6.4 6.6 ALBUMIN 3.7 [...] who have questions please contact the health coronary care unit nurse that requested your imaging first. : 05/08 -Left ventricle is severely dilated (LVEDV [...] Lance MD Internal Medicine, PGY-1 Cardiology M1-S2, #[id number] 05/11/2023, 6:06 AM Associated attestation - Juan Luis Gonzalez MD - 05/11/2023 10:20 PM EDT Cardiology Attending Addendum Active Hospital Problems Diagnosis Symptomatic severe aortic stenosis with low ejection fraction Heart failure with reduced ejection fraction due to heart valve disease 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, 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) Mild coronary artery disease by [facility] 11/09/2022 Hyperlipidemia, unspecified NICOLAS (obstructive sleep [...] PCP: Magdalena Acosta MD PCP phone number: [phone] Date of Admission: 05/08/2023 ( Hospital Day [...] Intake/Output Summary (Last 24 hours) at 05/10/2023 0601 Last data filed at 05/10/2023 0400 Gross [...] warmth;no swelling;no redness 05/08/231999 Labs: Recent Labs 05/10/23 0228 05/09/23 0400 05/08/23 1138 WBC 5.2 6.4 4.1 HGB 10.2* 10.2* 10.2* HCT 30.2* 30.3* 29.6* PLATELET 151 151 136* MCV 97.1* 96.2* 97.0* Recent Labs 05/10/2322705/09/23 0400 05/08/23 1600 05/08/23 1138 NA 134* [...] 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) Mild coronary artery disease by [facility] 11/09/2022 Hyperlipidemia, unspecified NICOLAS (obstructive sleep [...] PCP: Magdalena Acosta MD PCP phone number: [phone] Date of Admission: 05/08/2023 ( Hospital Day [...] 1.03 -- 1.02 LFTs Recent Labs 05/09/23 0400 PROT 6.6 ALBUMIN 3.8 AST 32* ALT [...] Gas) No results found for: PHART, PO2ART, FXD8TLP, XFY3COJ Microbiology: Microbiology Results (Last 30 days) No [...] PPx: Diet: Daily Healthy Menu Choices/Cardiac diet ([facility]-Diet) Lines: Peripheral IV Line - Single Lumen [...] 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) Mild coronary artery disease by [facility] 11/09/2022 Hyperlipidemia, unspecified NICOLAS (obstructive sleep [...] documented in this encounter H&P Notes * Jose Thomas MD - 05/18/2023 3:46 PM EDT [...] fraction I35.0 Mild coronary artery disease by [facility] 11/09/2022 I25.10 Heart failure with reduced ejection fraction due to heart valve disease I50.20, I38 Cardiogenic shock R57.0 S/P TAVR (transcatheter aortic valve replacement) Z95.2 Past Medical History: Diagnosis Date Anemia Past Surgical History: Procedure Laterality Date PRG CATH PLMT LEFT HEART CATH & ARTS W/INJ & ANGIO IMG S&I N/A 11/09/2022 CORONARY ANGIOGRAPHY; W [facility],POSSIBLE PCI (WRVU 5.6) performed by Mario Alberto Escobedo MD at [facility] CATH LABS PRO AORTOPLAS FOR SUPRAVALV STEN N/A 09/21/2016 @AORTOPLASTY FOR SUPRAVALVULAR STENOSIS (WRVU 29.33) performed by Alirio Hudson MD at [facility] MAIN OR PRO REPLACEMENT PROSTHETIC AORTIC VALVE OPEN W CARDIOPULMONARY BYPASS HOMOGRF/STENT N/A 09/21/2016 @REPLACE AORTIC VALVE, OPEN, W\CPB, W\PROSTHETIC VALVE (WRVU 41.32) performed by Alirio Hudson MD at [facility] MAIN OR Social History and Habits: [...] OneTouch Verio test strips Strip USE DAILY [employer] Plus Lancet 33 gauge Misc USE DAILY [...] fraction I35.0 Mild coronary artery disease by [facility] 11/09/2022 I25.10 Heart failure with reduced ejection fraction due to heart valve disease I50.20, I38 Cardiogenic shock R57.0 S/P TAVR (transcatheter aortic valve replacement) Z95.2 Past Medical History: Diagnosis Date Anemia Past Surgical History: Procedure Laterality Date PRG CATH PLVA LEFT HEART CATH & ARTS W/INJ & ANGIO IMG S&I N/A 11/09/2022 CORONARY ANGIOGRAPHY; W [facility],POSSIBLE PCI (WRVU 5.6) performed by Mario Alberto Escobedo MD at [facility] CATH LABS PRO AORTOPLAS FOR SUPRAVALV STEN N/A 09/21/2016 @AORTOPLASTY FOR SUPRAVALVULAR STENOSIS (WRVU 29.33) performed by Alirio Hudson MD at [facility] MAIN OR PRO REPLACEMENT PROSTHETIC AORTIC VALVE OPEN W CARDIOPULMONARY BYPASS HOMOGRF/STENT N/A 09/21/2016 @REPLACE AORTIC VALVE, OPEN, W\CPB, W\PROSTHETIC VALVE (WRVU 41.32) performed by Alirio Hudson MD at [facility] MAIN OR Social History and Habits: [...] days, which prompted her to present to [employer]. She also endorses some intermittent retrosternal chest pain with exertion.She endorses some dizziness with exertion, but has not gotten faint or passed out. At [facility] she was noted to be afebrile, blood pressure 105/64, HR 120s, satting 95% on 2L NC. Labs from [facility] are below, of note she had elevated [...] 89/59, which prompted the transfer to us. [facility] labs: CBC - Hgb 10.5 CMP - Cr 1.1 BNP 03909 HsTrop 1358 Lactate 1.6 D-dimer 1183 Interval History Patient was admitted to [facility] due to concern on low BP [...] Klaudia Reid MD Internal Medicine PGY-1 Pager [phone], M1-S1 Service Associated attestation - Juan Luis Gonzalez MD - 05/08/2023 10:00 PM EDT Cardiology Attending Addendum Active Hospital Problems Diagnosis Symptomatic severe aortic stenosis with low ejection fraction Heart failure with reduced ejection fraction due to heart valve disease Mild coronary artery disease by [facility] 11/09/2022 Hyperlipidemia, unspecified History of aortic valve replacement Resolved Hospital Problems No resolved problems to display. I have interviewed and examined the patient, reviewed the available data, and have discussed my findings, assessment and plan with the patient and the team on admission to S2 service (from [facility] service) today. I agree with Dr. Reid's [...] PCP: Magdalena Acosta MD PCP phone number: [phone] Date of Admission: 05/08/2023 ( Hospital Day 0 days ) Attending:Enrique Chua MD ID: Purnima Thacker is a 67 y.o. female w/ PMH of s/p bioprosthetic AVR in 2016 with recent concern for severe restenosis, HTN, HLD, mixed connective tissue disease, who presents in transfer from [facility] with worsening BONILLA and weight gain concerning [...] four days, which promptedher to present to [facility]. She also endorses some intermittent retrosternal chest pain with exertion. She endorses some dizziness with exertion, but has not gotten faint or passed out. At [facility] she was noted to be afebrile, blood pressure 105/64, HR 120s, satting 95% on 2L NC. Labs from [facility] are below, of note she had elevated [...] 89/59, which prompted the transfer to us. [facility] labs: CBC - Hgb 10.5 CMP - Cr 1.1 BNP 11814 HsTrop 1358 Lactate 1.6 D-dimer 1183 Vasoactive [...] tissue disease, who [facility] B[place] and weight gain concerning for [...] #Routine Diet: Daily Healthy Menu Choices/Cardiac diet ([facility]-Diet) DVT Prophylaxis: heparin gtt GI Prophylaxis: none [...] remains HD stable, can transfer out of CV. -Structural Heart consult; will need inpatient TAVR. [...] to the planned procedure. Hand Hygiene: The gig tender did perform hand hygiene prior to arterial [...] Successful arterial line placement. Crispin Timmons MD Corporate Statistical Financial Analyst Associated attestation - Onelia Schwartz MD - [...] yes Patient location at time of insertion: CV Procedure Comments: Central venous access was successfuly obtained and confirmed with: visualization of wire with ultrasound in both long and short axis, transduction of pressures (flow was non-pulsatile) and appearance of blood. Luna-Marily catheter was placed and locked at 55 [...] discharge to home with family/friend support and Alonso LOW pt will also have FWW delivered to her prior to her d/c. Needs for Transition of Care: Plan for discharge is: Home w/ Services Outpatient Agency/Support Group Needs: Homecare agency Home Health Services: Physical Therapy, Occupational Therapy Agency Referrals & Follow-up Care: Contact information for follow-up Home Health & Hospice, [place] [address] [place] [address] Cardiac Rehab, [address] [place] [address] Home Health & Hospice, [place] [address] [place] [address] Transportation: family or friend will provide *Brother [...] Type: *No Product type* / Secondary Insurance: [employer] [place] Prescription Coverage: Yes This plan was formulated with input from patient, family (please identify family/friend involved ifapplicable) and team. All are in agreement with plan. Aliza Martino MSN-Ed, RN ACM manufacturing analyst Office of Care Management Pager #[phone] * Plan of Care - Favian Mckeon [...] Lana Chaudhary RN - 05/21/2023 4:46 PM EDTSumcaydeny: [facility] referral OFFICE OF CARE MANAGEMENT [...] Type: *No Product type* / Secondary Insurance: [employer] [facility] [place] Last Physical Therapy Recommendation: (Home with assist from Brother; Friend arriving Tues) with walker, front wheeled Last Occupational Therapy Recommendation: swing bed rehabilitation facility, intermediate facility (vs home with support for IADLs) with walker, front wheeled, shower chair Plan for discharge is: Home w/ Services Outpatient Agency/Support Group Needs: Homecare agency Home Health Services: Physical Therapy, Occupational Therapy Agency Referrals: I have met with the patient to: discuss discharge planning needs. describing our affiliations within the [facility] and educate about their right to choose where referrals are sent. provide a list of Home Health Agencies / Durable Medical Equipment vendors which serve their preferred geographic area. They have requested referrals to: [facility] [address] [place] [address] [facility] Located @ [facility] [place], [place] Note routed to a Squad Sergeant who will communicate referrals to facilities and provide any required information. Transportation: family or friend will provide *Brother Raymond on Tuesday 05/22 at 1000 Barriers to discharge: Does not have home 22/02 assist available until tomorrow Tuesday 05/22 Plan going forward: Discharge home into the 22/02 home care of brother Raymond with [facility] FWW and [facility] PT/OT services on Tuesday 05/22 at [...] Attending: All Staff: Staff Role Juanita Almaguer Cable Armorer Laure Ricks PA Physician Dormitory Maid Magdalena Rodriguez RN Radiology Nurse Consuelo Espinoza RN Radiology Nurse Post-operative diagnosis/Indication: Right pleural effusion Name [...] Type: *No Product type* / Secondary Insurance: [facility] [place] Last Physical Therapy Recommendation: intermediate facility, swing bed rehabilitation facility with to be determined Last Occupational Therapy Recommendation: with Plan for discharge is: Half-Way Facility / Swing Outpatient Agency/Support Group Needs: None Agency Referrals: Based on discussions with the multi-disciplinary healthcare team, the patient would benefit from SNF / Swing level of care at discharge. I have met with the patient to: discuss discharge planning needs. provide the [facility], Office of Care Management letter from the [employer] Hel[employer] pertaining to rehab referrals. provide a letter describing our affiliations within the [facility] and educate about their right to choose where referrals are sent. provide the [facility] Star Quality Rating handout. review the different levels of rehab including SNF, swing, and acute. provide a list of facilities within their preferred geographic area. request that they provide at least three choices for referral. They have requested referrals to: [facility] [address] [place] [address] [facility] ([facility]) [address] [place] [address] (Accepts pts only after exhausting all other local SNF options) [facility] (Swing) ([facility]) [address] [place] [address] PHONE: [phone] FAX: [phone] [facility] (Swing) ([facility]) [address] [place] [address] PHONE: [phone] FAX: [phone] Note routed to a Squad Sergeant who will communicate referrals to facilities and [...] Crenshaw RN - 05/17/2023 10:25 AM EDT [facility] C[facility]AC [facility]ILITATION Purnimakary Thacker was seen today regarding participation in the outpatient Phase 2 Cardiac Rehabilitation at [facility]. The patient agrees to a referral to [...] from the original note were not included. [facility] NEPHROLOGY/HYPERTENSION CONSULT NOTE PATIENT: Purnima Thacker [...] in her course. She ultimately underwent a xdyzv-cz-pvuko procedure on and tolerated it well (see [...] BP: (88-123)/(52-72) Respiratory Rate Resp: 15 Resp: [12-23] SpO2 SpO2: 97 % SpO2: [94 %-99 [...] No asterixis. STUDIES: LABS: CBC: Recent Labs 05/14/23 01105/13/2311405/12/235 05/12/23 0105 WBC 11.2* 8.6 -- 9.0 HGB 7.2* 7.8* 8.5* 9.8* PLATELET 112* 130* -- 186 Chemistry: Recent Labs 05/14/23 0110 05/13/23 0115 05/12/23 1405 05/12/23 0600 NA 132* 132* -- [...] 1423 05/12/23 1105 PHART 7.39 7.37 7.34* [id number] 33* 36 42 PO2ART 101 102 73* [id number] 19.5* 20.4 22.1 LACTATEVEN 1.5 1.8 2.8* END2KJR 40 40 40 PFRATIOART2 252 255 182 VBG (Venous Blood Gas) Recent Labs 05/12/23 1557 05/12/23 1423 05/12/23 1105 LACTATEVEN 1.5 1.8 2.8* Mixed Venous Sat Recent Labs 05/12/23 1425 05/12/23 0508 05/12/23 0321 [id number] 59.9 30.7 32.7 LFT's: Recent Labs 05/14/23 0110 05/13/23 0115 05/12/23 0600 BILITOT 0.4 0.5 0.9 BILIDIR -- 0.3 -- ALBUMIN 3.6 3.0* 3.5 ALKPHOS 86 85 100 ALT 437* 903* 1,174* AST 319* 792* 1,435* No results found for: UPROTCREAT No results found for: TPROTEINPEP, ALBELECT No results found for: MICROALBUR, TYDX31PFQ No results found for: HA1C Lab Results Component Value Date CALCIUM 8.5 05/14/2023 PHOS 4.7 (H) 05/08/2023 No results found for: 25OHVITD MICROBIOLOGY: ProcedureComponentValueUnitsDate/TimeUrine culture [[id number]]Collected: 05/11/231921Lab Status: Final resultSpecimen: Clean Catch UrineUpdated: 05/12/23 [...] consulted for assessment if this patient needs CENTRAL OFFICE ASSOCIATE. Atthis time, we can likely hold off on CENTRAL OFFICE ASSOCIATE. Her volume status appears sufficient and her metabolic kanwal angements with mild acidosis is not too profound. Patient does not have significant uremic symptoms. We can hold off for today, but the patient is a high risk candidate for needing CENTRAL OFFICE ASSOCIATE in future daysespecially if her Cr curve trends the direction it is for the next several days. S/p Onabb-yy-Gvowa TF TAVR: Management per cardiology. On milrinone gtt. PLAN: - Please obtain following diagnostics: renal US, urinalysis, urine prot/Cr ratio, urine albumin/Cr ratio, CK, uric acid, serum osmol, daily VBGs - No acute indications for CENTRAL OFFICE ASSOCIATE/dialysis. We will keep close eye on Cr trend, volume status, and metabolics to ensure patient still does not need CENTRAL OFFICE ASSOCIATE as she ensues intrinsic renal recovery - [...] M.H.Katherine., M.A. PGY-V Nephrology-Hypertension Fellow Page # [phone] 2nd floor, [employer]ap [employer] Architect [address] [place] [address] * Care Management - Mario Alberto Olmos [...] Vasoactive & Sedating Medications: Infusions: Continuous Infusions: [MAR Hold] vasopressin 0.08 Units/min (05/12/23 0600) [SEP Hold] milrinone 0.375 mcg/kg/min (05/12/23 0600) [SEP Hold] DOBUTamine Stopped (05/12/23 0120) [MAR Hold] NORepinephrine 6 mcg/min (05/12/23 0642) Decision [...] Type: *No Product type* / Secondary Insurance: [facility] Plan for discharge is: Home [...] for a TAVR at 730. Returned to [facility] at 0945. Was intubated in the laborer gold leaf due to agitation. Maintained bedrest for 5 [...] Operative Note Patient Name: Purnima Thacker : [id number] MR#: [id number] Case Date: 05/12/2023 Surgeon: Surgeon(s) and Role: [...] procedure Note: Patient Name: Purnima Thacker : [id number] MR#: [id number] Case Date: 05/12/2023 Operators Surgeon: Surgeon(s) and [...] main with 4.0 x 30 mm Resolute [place] Drug Eluting Stent Perclose x1 + Angio-seal 8 Fr x1, RFA Manual pressure, LFA Manual pressure, LFV Endotracheal intubation (performed by cardiac anesthesia) Preliminary findings: Successful right transfemoral TAVR Lufiz-pz-Kvybr with a 23 mm Lai 3 THV. [...] MD, M.Sc. Structural Heart Disease Fellow Pager :[phone] Antelmo Sharma MD Pager [phone] * Op Note - Alirio Hudson MD - 05/12/2023 7:37 AM EDT Preop Diagnosis: Severe aortic stenosis, symptomatic. Postop Diagnosis: Same. Procedure: Transfemoral TAVR procedure with 23mm valve. Surgeon: Alirio Hudson M.D. Aws Software Development Engineer: Danny CULP Procedure: The patient was taken to the laborer gold leaf. The patient had monitored anesthesia care. 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 [facility] [phone] STRUCTURAL HEART DISEASE CONSULTATION NOTE PRIMARY CARE [...] who had been referred for possible TAVR cizvq-mj-dkdxu evaluation. Her primary symptoms are of dyspnea [...] otherwise negative. Ms. Thacker is originally from [facility]. 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 PROBLEM LIST: Patient Active Problem List Diagnosis Symptomatic severe aortic stenosis with low ejection fraction Mild coronary artery disease by [facility] 11/09/2022 Heart failure with reduced ejection [...] hour(s)) Lactate, whole blood, send to lab ([facility]) Result Value Ref Range Lactate WB 1.8 [...] leads Confirmed by MD Harshil, Enrique Bell ([id number]) on 05/10/2023 8:11:46 AM Assessment and Plan: [...] Antelmo Sharma MD Structural Heart Disease Pager [phone] * Plan of Care - Saarhi Nice RN - 05/10/2023 3:55 AM MITZITSshalini: VALDO Note and Care Plan Sarahi Nice RN assumed care of pt at time of their arrival to room 362 from [facility]. Pt voices shortness of breath at [...] and Manage Fall Risk Flowsheets (Taken 05/10/2023 020) Safety Promotion/Fall Prevention: safety round/check completed Intervention: Prevent Skin Injury Flowsheets (Taken 05/10/2023199) Body Position: position changed independently Intervention: Prevent and Manage VTE (Venous Thromboembolism) Risk Flowsheets (Taken 05/09/2023 2336) VTE Prevention/Management: anticoagulant therapy Intervention: Prevent Infection Flowsheets (Taken 05/10/2023 020) Infection Prevention: environmental surveillance performed equipment surfaces [...] active listening utilized Taken 05/08/20231999 by Alivia Kauffman, director product management/Support System Care: self-care encouraged support provided Problem: [...] Manage Obstructive Sleep Apnea Flowsheets (Taken 05/09/2023 2732) NPPV/CPAP Maintenance: home PAP equipment/settings used * Initial Assessments - Alie Bradshaw RN - 05/09/2023 3:42 PM EDT Office of Care Management Initial Assessment Alie Bradshaw RN reviewed record and discussed patient with Care Team. Source of Information: Team, bedside nurse, medical record, and Patient Introduced self/reviewed role; services accepted. Admitted From: Transfer from another hospital Location: admitted from [facility] Reason for Hospitalization: Critical aortic stenosis, causing symptoms Past medical History: Past Medical History: Diagnosis Date Anemia Hospitalizations Within the Past 30 Days: no previous admission in last 30 days Current Decision-Making Capacity: Self If AD's have not been completed the following surrogate would be surrogate decision maker per [place] decision making law. (Only good for 180 days) Any patient receiving care in [place] must abide by [place] law. The hierarchy for surrogate decision making [...] (i) The agent with financial power of prosecuting attorney or a conservator appointed in accordance with [...] DME: none Home Address confirmed as: [address] [address] Social & Family Supports: All names listed below confirmed with patient as current and correct Extended Emergency Contact Information Primary Emergency Contact: Martha Thacker Relation: Friend Secondary Emergency Contact: Giorgio Thacekr Mobile Relation: Sibling Current Care Provided by: [...] Type: *No Product type* / Secondary Insurance: [facility] ONLY if patient has Medicare A&B - Does this patient have secondary insurance?: Yes ; Prescription Coverage: Yes Preferred Pharmacy: updated to [facility] in [facility] Status: Patient is a : No Primary Care Provider confirmed: Magdalena Acosta MD [phone] Patient/Caregiver Goals of Treatment: Potential Needs for [...] transition of care planning. Alie Bradshaw RN, Pager-[phone] * Plan of Care - Emily Lucero RN - 05/08/2023 2:54 PM EDT OUTCOME EVALUATION NOTE: OUTCOME SUMMARY: Pt arrived from [facility]. A&O, no c/o pain or SOB. Heparin [...] 4:15 PM EDT Office Visit Dermatology at [address] [place] [address] Marek Bonilla MD [address] [place] [address] 06/05/2024 11:30 AM EST Office [place] [address] Magdalena Peralta MD [facility] [address] [place] [address] Scheduled Referrals Name Type Priority Associated Diagnoses [...] Heart Cath W/Inj L Ventriculography, Img S&I ([id number]) 05/12/2023 7:37 AM EDT Aortic valve stenosis, [...] EDT HC CBC,PLT & AUTO DIFF Routine 10/09/202 3 2:28 AM EDT COMPREHENSIVE METABOLIC PANEL (NON-FASTING) [...] DOPP (07/08/2023 12:15 PM EST) EF 20 [facility] SYSTEM Anatomical Region Laterality Modality Cardiac Other 07/08/2023 10:3 1 AM EST Narrative 07/08/2023 12:26 PM EST [address] [place] [address] ? Echocardiogram Report Name: PURNIMA THACKER ?Study Date: 07/08/2023 10:31 AMBP: 118/60 mmHg ? Patient Location: 4A : 1955 ? Height: 155 cm ? Account: [id number] Age: 67 yrs ? Weight: 74 kg Gender: Female ?BSA: 1.7 m2 Ordering Physician: ALIRIO HUDSON Referring Physician: VINOD JUÁREZ Performed By: Felicia Norris RDCS Reason For Study: S/P TAVR Exam Location: [facility]. Interpretation Summary Left ventricular systolic function [...] no significant change (post-procedure). Procedure Limited - 54947. Doppler - 19661. Color Doppler - 93281. Satisfactory quality. This study is limited because [...] Note Lee Kincaid MD - 07/08/2023 [address] [place] [address] Echocardiogram Report Name: PURNIMA THACKER Study Date: 0:31 AMBP: 118/60 mmHg Patient Location: : 1955 Height: 155 cm Account: [id number] Age: 67 yrs Weight: 74 kg Gender: Female BSA: 1.7 m2 Ordering Physician: ALIRIO HUDSON Referring Physician: VINOD JUÁREZ Performed By: Felicia Norris RDCS Reason For Study: S/P TAVR Exam Location: [facility]. Interpretation Summary Left ventricular systolic function [...] is nosignificant change (post-procedure). Procedure Limited - 56543. Doppler - 99472. Color Doppler - 87359. Satisfactoryquality. This study is limited because of [...] Glucose Lvl 93 65 - 199 mg/dL [facility] Comment:Diabetes: >=200 mg/d L plus symptoms BUN 19(H) 8 - 18 mg/dL [facility] Creatinine 0.81 0.70 - 1.20 mg/dL [facility] Sodium 142 135 - 145 mmol/L [facility] Potassium 3.8 3.5 - 5.0 mmol/L [facility] Comment: Please note: ??Patients with WBC >100,000 may have falsely elevated Potassium levels. ??For accurate Potassium quantification in these patients send serum separator tube (gold top) for subsequent determinations. ??Contact the Clinical Chemistry Laboratory if there are any questions. Chloride 104 98 - 107 mmol/L [facility] CO2 26 22 - 31 mmol/L [facility] Anion Gap 12 5 - 15 mmol/L [facility] Calcium 10.2 8.5 - 10.5 mg/dL [facility] Total Protein 7.4 6.1 - 8.0 g/dL [facility] Albumin 4.1 3.2 - 5.2 g/dL [facility] AST 24 0 - 30 unit/L [facility] ALT 12 0 - 30 unit/L [facility] Alk Phos 93 35 - 105 unit/L [facility] Total Bilirubin 0.3 0.2 - 1.3 mg/dL [facility] Estimated GFR 80 >=60 mL/min/1. 73 m?? [facility] Comment: This patient's estimated [...] Resulting Agency Comment Spec In Lab Alirio Hudsno MD CHEMISTRY ORDERABLE S [facility] [place] [address] * (ABNORMAL) Basic Metabolic Panel (non-fasting) (05/22/2023 3:57 AM EDT) Glucose Lvl 88 65 - 199 mg/dL [facility] Comment:Diabetes: >=200 mg/d L plus symptoms BUN 21(H) 8 - 18 mg/dL [facility] Creatinine 0.69(L) 0.70 - 1.20 mg/dL [facility] Sodium 136 135 - 145 mmol/L [facility] Potassium 3.6 3.5 - 5.0 mmol/L [facility] Comment: Please note: ??Patients with WBC >100,000 may have falsely elevated Potassium levels. ??For accurate Potassium quantification in these patients send serum separator tube (gold top) for subsequent determinations. ??Contact the Clinical Chemistry Laboratory if there are any questions. Chloride 102 98 - 107 mmol/L [facility] CO2 23 22 - 31 mmol/L [facility] Anion Gap 11 5 - 15 mmol/L [facility] Calcium 8.6 8.5 - 10.5 mg/dL [facility] Estimated GFR 95 >=60 mL/min/1. 73 m?? [facility] Comment: This patient's estimated [...] Agency Comment Spec In Lab Mara Serrano JOCKEY AGENT CHEMISTRY ORDERABL ES [facility] [address] * (ABNORMAL) Basic Metabolic Panel (non-fasting) (05/21/2023 5:06 AM EDT) Glucose Lvl 87 65 - 199 mg/dL [facility] Comment:Diabetes: >=200 mg/d L plus symptoms BUN 25(H) 8 - 18 mg/dL [facility] Creatinine 0.84 0.70 - 1.20 mg/dL [facility] Sodium 136 135 - 145 mmol/L [facility] Potassium 3.6 3.5 - 5.0 mmol/L [facility] Comment: Please note: ??Patients with WBC >100,000 may have falsely elevated Potassium levels. ??For accurate Potassium quantification in these patients send serum separator tube (gold top) for subsequent determinations. ??Contact the Clinical Chemistry Laboratory if there are any questions. Chloride 102 98 - 107 mmol/L [facility] CO2 26 22 - 31 mmol/L [facility] Anion Gap 8 5 - 15 mmol/L [facility] Calcium 8.9 8.5 - 10.5 mg/dL [facility] Estimated GFR 76 >=60 mL/min/1. 73 m?? [facility] Comment: This patient's estimated [...] Agency Comment Spec In Lab Mara Serrano JOCKEY AGENT CHEMISTRY ORDERABL ES [facility] [address] * Lavender Tube HOLD (05/20/2023 2:52 AM EDT) Lavender Hold Sample in lab. [facility] Blood Venous Draw / Unknown 05/20/2023 2:52 AM EDT 05/20/2023 3:04 AM EDT Mara Serrano JOCKEY AGENT HEMATOLOGY ORDERAB LES [facility] [place] [address] * (ABNORMAL) Basic Metabolic Panel (non-fasting) (05/20/2023 2:52 AM EDT) [facility] Glucose Lvl 152 65 - 199 mg/dL [facility] Comment:Diabetes: >=200 mg/d L plus symptoms BUN 33(H) 8 - 18 mg/dL [facility] Creatinine 0.82 0.70 - 1.20 mg/dL [facility] Sodium 137 135 - 145 mmol/L [facility] Potassium 3.7 3.5 - 5.0 mmol/L [facility] Comment: Please note: ??Patients with WBC >100,000 may have falsely elevated Potassium levels. ??For accurate Potassium quantification in these patients send serum separator tube (gold top) for subsequent determinations. ??Contact the Clinical Chemistry Laboratory if there are any questions. Chloride 99 98 - 107 mmol/L [facility] CO2 22 22 - 31 mmol/L [facility] Anion Gap 16(H) 5 - 15 mmol/L [facility] Calcium 9.0 8.5 - 10.5 mg/dL [facility] Estimated GFR 78 >=60 mL/min/1. 73 m?? [facility] Comment: This patient's estimated [...] Agency Comment Spec In Lab Mara [place] JOCKEY AGENT CHEMISTRY ORDERABL ES Performing Organization Address [facility] de Phone Number [facility] [place] [address] * (ABNORMAL) Potassium (05/20/2023 2:52 AM EDT) [facility] Potassium 3.4(L) 3.5 - 5.0 mmol/L [facility] Comment: Please note: ??Patients with WBC >100,000 may have falsely elevated Potassium levels. ??For accurate Potassium quantification in these patients send serum separator tube (gold top) for subsequent determinations. ??Contact the Clinical Chemistry Laboratory if there are any questions. Blood 05/20/2023 2:52 AM EDT 05/20/2023 3:03 AM EDT Narrative Resulting Agency Comment Spec In Lab Mara [place]field JOCKEY AGENT CHEMISTRY ORDERABL ES Performing Organization Address [facility] Co de Phone Number [facility] [place] [address] * XR Chest PA & Lateral (Generic) [...] who have questions please contact the health coronary care unit nurse that requested your imaging first. ? Narrative 05/19/2023 2:19 PM EDT EXAMINATION: XR [...] patients who have questions please contactthe health coronary care unit nurse that requested your imaging first. Alirio Hudson MD IMG DX ORDERABLES * (ABNORMAL) Basic Metabolic Panel (non-fasting) (05/19/2023 5:49 AM EDT) Glucose Lvl 93 65 - 199 mg/dL [facility] Comment:Diabetes: >=200 mg/d L plus symptoms BUN 45(H) 8 - 18 mg/dL [facility] Creatinine 1.02 0.70 - 1.20 mg/dL [facility] Sodium 138 135 - 145 mmol/L [facility] Potassium 3.9 3.5 - 5.0 mmol/L [facility] Comment: Please note: ??Patients with WBC >100,000 may have falsely elevated Potassium levels. ??For accurate Potassium quantification in these patients send serum separator tube (gold top) for subsequent determinations. ??Contact the Clinical Chemistry Laboratory if there are any questions. Chloride 102 98 - 107 mmol/L [facility] CO2 26 22 - 31 mmol/L [facility] Anion Gap 10 5 - 15 mmol/L [facility] Calcium 9.7 8.5 - 10.5 mg/dL [facility] Estimated GFR 60 >=60 mL/min/1. 73 m?? [facility] Comment: This patient's estimated [...] Agency Comment Spec In Lab Mara Serrano JOCKEY AGENT CHEMISTRY ORDERABL ES [facility] [place] [address] * IR Chest Tube Placement Right (05/18/2023 [...] of 10 mL serosanguinous fluid. Service provider: aLure Ricks PA-C Attending of record: Kristopher Salgado MD 05/18/2023 Alirio Hudson MD IMG IR ORDERABLES * (ABNORMAL) Basic Metabolic Panel (non-fasting) (05/18/2023 2:54 AM EDT) Glucose Lvl 95 65 - 199 mg/dL [facility] Comment:Diabetes: >=200 mg/d L plus symptoms BUN 71(H) 8 - 18 mg/dL [facility] Comment:result rechecked-JSJ Creatinine 1.64(H) 0.70 - 1.20 mg/dL [facility] Comment:result rechecked-JSJ Sodium 137 135 - 145 mmol/L [facility] Potassium 3.7 3.5 - 5.0 mmol/L [facility] Comment: Please note: ??Patients with WBC >100,000 may have falsely elevated Potassium levels. ??For accurate Potassium quantification in these patients send serum separator tube (gold top) for subsequent determinations. ??Contact the Clinical Chemistry Laboratory if there are any questions. Chloride 100 98 - 107 mmol/L [facility] CO2 24 22 - 31 mmol/L [facility] Anion Gap 13 5 - 15 mmol/L [facility] Calcium 9.7 8.5 - 10.5 mg/dL [facility] Estimated GFR 34(L) >=60 mL/min/1. 73 m?? [facility] Comment: This patient's estimated [...] Agency Comment Spec In Lab Mara Serrano JOCKEY AGENT CHEMISTRY ORDERABL ES [facility] [place] [address] * XR Chest PA & Lateral (Generic) [...] who have questions please contact the health coronary care unit nurse that requested your imaging first. ? Narrative [...] appears normal. Cholecystectomy clips. Procedure Note Ghassan Reyes MD - 05/17/2023 EXAMINATION: XR CHEST PA [...] patients who have questions please contactthe health coronary care unit nurse that requested your imaging first. Alirio Hudson MD IMG DX ORDERABLES * (ABNORMAL) Comprehensive metabolic panel (non-fasting) (05/17/2023 4:35 AM EDT) Glucose Lvl 89 65 - 199 mg/dL [facility] Comment:Diabetes: >=200 mg/d L plus symptoms BUN 97(H) 8 - 18 mg/dL [facility] Creatinine 2.97(H) 0.70 - 1.20 mg/dL [facility] Comment:result rechecked-[facility] Sodium 135 135 - 145 mmol/L [facility] Potassium 4.1 3.5 - 5.0 mmol/L [facility] Comment: Please note: ??Patients with WBC >100,000 may have falsely elevated Potassium levels. ??For accurate Potassium quantification in these patients send serum separator tube (gold top) for subsequent determinations. ??Contact the Clinical Chemistry Laboratory if there are any questions. Chloride 97(L) 98 - 107 mmol/L [facility] CO2 22 22 - 31 mmol/L [facility] Anion Gap 16(H) 5 - 15 mmol/L [facility] Calcium 9.6 8.5 - 10.5 mg/dL [facility] Total Protein 6.5 6.1 - 8.0 g/dL [facility] Albumin 3.7 3.2 - 5.2 g/dL [facility] AST 58(H) 0 - 30 unit/L [facility] ALT 66(H) 0 - 30 unit/L [facility] Alk Phos 86 35 - 105 unit/L [facility] Total Bilirubin 0.6 0.2 - 1.3 mg/dL [facility] Estimated GFR 17(L) >=60 mL/min/1. 73 m?? [facility] Comment: This patient's estimated [...] Lab Alirio Hudson MD CHEMISTRY ORDERABLE S [facility] [place] [address] * Potassium (05/16/2023 11:15 PM EDT) Potassium 3.7 3.5 - 5.0 mmol/L [facility] Comment: Please note: ??Patients [...] MD CHEMISTRY ORDERABLE S Performing Organization Address [facility] [place]/[facility] Co de Phone Number [facility] [place] [address] * Magnesium (05/16/2023 5:22 PM EDT) Magnesium 0.96 0.69 - 1.07 mmol/L [facility] Blood 05/16/2023 5:22 PM EDT 05/16/2023 5:27 PM EDT Narrative Resulting Agency Comment Spec In Lab Alirio Hudson MD CHEMISTRY ORDERABLE S Performing Organization Address [facility] [place]/[facility] Co de Phone Number [facility] [place] [address] * (ABNORMAL) Basic Metabolic Panel (non-fasting) (05/16/2023 5:22 PM EDT) Glucose Lvl 106 65 - 199 mg/dL [facility] Comment:Diabetes: >=200 mg/d L plus symptoms BUN 103(H) 8 - 18 mg/dL [facility] Creatinine 3.91(H) 0.70 - 1.20 mg/dL [facility] Comment:result rechecked-imm Sodium 132(L) 135 - 145 mmol/L [facility] Potassium 3.6 3.5 - 5.0 mmol/L [facility] Comment: Please note: ??Patients with WBC >100,000 may have falsely elevated Potassium levels. ??For accurate Potassium quantification in these patients send serum separator tube (gold top) for subsequent determinations. ??Contact the Clinical Chemistry Laboratory if there are any questions. Chloride 92(L) 98 - 107 mmol/L [facility] CO2 22 22 - 31 mmol/L [facility] Anion Gap 18(H) 5 - 15 mmol/L [facility] Calcium 9.7 8.5 - 10.5 mg/dL [facility] Estimated GFR 12(L) >=60 mL/min/1. 73 m?? [facility] Comment: This patient's estimated [...] Lab Alirio Hudson MD CHEMISTRY ORDERABLE S [facility] [place] [address] * (ABNORMAL) Potassium (05/16/2023 11:43 AM EDT) Potassium 3.3(L) 3.5 - 5.0 mmol/L [facility] Comment: Please note: ??Patients [...] Lab Alirio Hudson MD CHEMISTRY ORDERABLE S [facility] [place] [address] * (ABNORMAL) Ferritin (05/16/2023 4:41 AM EDT) Ferritin 1,813(H) 30 - 400 ng/mL [facility] Comment: Pediatric reference ranges not verified at [facility], interpret with caution. Reference ranges for females greater than 50 years of age approach values for men, i.e., 30-400 ng/mL. Blood 05/16/2023 4:41 AM EDT 05/16/2023 4:54 AM EDT Narrative Resulting Agency Comment Spec In Lab Kristopher Ayoub MD CHEMISTRY ORDERABLES Performing Organization Address City/[facility]/ZIP Co de Phone Number [facility] [place] [address] * (ABNORMAL) PTH (05/16/2023 4:41 AM EDT) [facility] PTH 120(H) 15 - 65 pg/mL [facility] Blood 05/16/2023 4:41 AM EDT 05/16/2023 4:54 AM EDT Narrative Resulting Agency Comment Spec In Lab Kristopher Ayoub MD CHEMISTRY ORDERABLES Performing Organization Address City/[facility]/ZIP Co de Phone Number [facility] [place] [address] * Vitamin D, 25-Hydroxy (05/16/2023 4:41 AM EDT) 25-OH Vit D Total 33 21 - 100 ng/mL [facility] 25-OH Vit D Interp Sufficient [facility] Blood 05/16/2023 4:41 AM EDT 05/16/2023 4:54 AM EDT Narrative Resulting Agency Comment Spec In Lab Kristopher Ayoub MD CHEMISTRY ORDERABLES [facility] [place] [address] * (ABNORMAL) Blood Gas Venous ([facility]) (05/16/2023 4:22 AM EDT) pH Mike 7.41 7.32 - 7.42 [facility] pCO2 Mike 32(L) 41 - 51 mmHg [facility] pO2 Mike 73(H) 25 - 40 mmHg [facility] HCO3 Mike 19.6 mmol/L [facility] BE Mike -5.1 mmol/L [facility] Hgb Blood Gas 9.7(L) 11.7 - 15.5 g/dL [facility] O2HB Mike 92.8 % [facility] COHB Mike 0.1 % [facility] Comment: Nonsmokers: 0.5-1.5% COHB Smokers: Variable, but usually less than 10% Toxic: 20-30% COHB Lethal: Greater than 60% COHB METHB Mike 0.3 <=1.5 % [facility] Na Whole Blood 130(L) 135 - 145 mmol/L [facility] K Whole Blood 3.7 3.5 - 5.0 mmol/L [facility] Comment: Please note: Patients with WBC >100,000 may have falsely elevated Potassium levels. Contact the Clinical Chemistry Laboratory if there are any questions. ICa Whole Blood 1.15 1.15 - 1.33 mmol/L [facility] Comment: Note: ??Total bilirubin higher than 20 mg/dL may lead to falsely low ionized calcium. CL Whole Blood 95(L) 98 - 107 mmol/L [facility] Gluc Whole Bld 82 65 - 199 mg/dL [facility] Comment:Diabetes: >=200 mg/d L plus symptoms Lactate WB 1.1 0.5 - 2.2 mmol/L [facility] BGas Source Venous [facility] Blood Venous Draw / Unknown 05/16/2023 4:22 AM EDT 05/16/2023 4:31 AM EDT Narrative Resulting Agency Comment Spec In Lab Bonita TOBAR CHEMISTRY ORDERABLES [facility] [place] [address] * (ABNORMAL) Differential, Automated (05/16/2023 4:20 AM EDT) Neutrophils % 84.1 % [facility] Neutr Abs (ANC) 6.22(H) 1.70 - 6.10 x10(3)/mc L [facility] Lymphocytes % 5.8 % [facility] Lymphocytes Abs 0.4(L) 0.9 - 3.2 x10(3)/ L [facility] Monocytes % 8.8 % [facility] Monocyte Abs 0.6 0.3 - 0.9 x10(3)/ L [facility] Eosinophils % 0.4 % [facility] Eosinophils Abs 0.0 0.0 - 0.4 x10(3)/mc L [facility] Basophils % 0.0 % [facility] Basophils Abs 0.0 0.0 - 0.1 x10(3)/mc L [facility] Immature Gran % 0.90 % [facility] Comment: Immature granulocytes(IG's)percentage and absolute count will include metamyelocytes, myelocytes, and promyelocytes. Blood smears from CBCs yielding IG's will be scanned manually for concordance. If this scan disagrees with the automated IG or if promyelocytes are noted, a manual differential will be performed. Amanda Gran Abs 0.07(H) 0.00 - 0.04 x10(3)/mc L [facility] Blood 05/16/2023 4:20 AM EDT 05/16/2023 4:29 AM EDT Narrative Resulting Agency Comment Spec In Lab James Agustin MD HEMATOLOGY ORDER JODIE [facility] [place] [address] * (ABNORMAL) Hemogram (05/16/2023 4:20 AM EDT) WBC 7.4 4.0 - 9.5 x10(3)/[facility] RBC 2.40(L) 4.00 - 5.21 x10(6)/[facility] Hemoglobin 7.8(L) 11.7 - 15.5 g/dL [facility] Hematocrit 22.5(L) 35.7 - 45.8 % [facility] MCV 93.8 82.6 - 94.4 fL [facility] MCH 32.5(H) 27.1 - 32.0 pg [facility] MCHC 34.7 31.7 - 35.0 g/dL [facility] Platelets 120(L) 145 - 357 x10(3)/[facility] RDWSD 42.9 37.0 - 46.0 [facility] RDWCV 12.9 11.5 - 14.1 % [facility] MPV 11.3 7.6 - 12.9 fL [facility] nRBC % Auto 0.7 % [facility] nRBC Abs Auto 0.050(H) 0.000 - 0.000 x10(3)/[facility] Blood 05/16/2023 4:20 AM EDT 05/16/2023 4:29 AM EDT Narrative Resulting Agency Comment Spec In Lab James Agustin MD HEMATOLOGY ORDER JODIE [facility] [place] [address] * (ABNORMAL) Basic Metabolic Panel (non-fasting) (05/16/2023 4:20 AM EDT) Glucose Lvl 89 65 - 199 mg/dL [facility] Comment:Diabetes: >=200 mg/d L plus symptoms BUN 108(H) 8 - 18 mg/dL [facility] Creatinine 4.74(H) 0.70 - 1.20 mg/dL [facility] Comment:result rechecked-OLIVA Sodium 132(L) 135 - 145 mmol/L [facility] Potassium 3.9 3.5 - 5.0 mmol/L [facility] Comment: Please note: ??Patients with WBC >100,000 may have falsely elevated Potassium levels. ??For accurate Potassium quantification in these patients send serum separator tube (gold top) for subsequent determinations. ??Contact the Clinical Chemistry Laboratory if there are any questions. Chloride 95(L) 98 - 107 mmol/L [facility] CO2 18(L) 22 - 31 mmol/L [facility] Anion Gap 19(H) 5 - 15 mmol/L [facility] Calcium 9.2 8.5 - 10.5 mg/dL [facility] Estimated GFR 10(L) >=60 mL/min/1. 73 m?? [facility] Comment: This patient's estimated [...] Resulting Agency Comment Spec In Lab Alirio Hudsno MD CHEMISTRY ORDERABLE S Performing Organization Address [facility] [place]/[facility]/ZIP Co de Phone Number [facility] [place] [address] * (ABNORMAL) Iron and TIBC (05/16/2023 4:20 AM EDT) Pathologist [facility] Iron 31 30 - 150 mcg/dL [facility] TIBC 259 250 - 450 mcg/dL [facility] Iron Saturation 12(L) 20 - 50 % [facility] Blood 05/16/2023 4:20 AM EDT 05/16/2023 4:29 AM EDT Narrative Resulting Agency Comment Spec In Lab Kristopher Ayobu MD CHEMISTRY ORDERABLES Performing Organization Address [facility] [place]/[facility]/ZIP Co de Phone Number [facility] [place] [address] * (ABNORMAL) Basic Metabolic Panel (non-fasting) (05/15/2023 12:50 AM EDT) [facility] Glucose Lvl 101 65 - 199 mg/dL [facility] Comment:Diabetes: >=200 mg/d L plus symptoms BUN 109(H) 8 - 18 mg/dL [facility] Creatinine 5.62(H) 0.70 - 1.20 mg/dL [facility] Comment:result rechecked-KS Sodium 131(L) 135 - 145 mmol/L [facility] Comment:result rechecked-KS Potassium 3.7 3.5 - 5.0 mmol/L [facility] Comment: result rechecked-KS Please note: ??Patients with WBC >100,000 may have falsely elevated Potassium levels. ??For accurate Potassium quantification in these patients send serum separator tube (gold top) for subsequent determinations. ??Contact the Clinical Chemistry Laboratory if there are any questions. Chloride 92(L) 98 - 107 mmol/L [facility] Comment:result rechecked-KS CO2 18(L) 22 - 31 mmol/L [facility] Comment:result rechecked-KS Anion Gap 21(H) 5 - 15 mmol/L [facility] Calcium 8.9 8.5 - 10.5 mg/dL [facility] Estimated GFR 8(L) >=60 mL/min/1. 73 m?? [facility] Comment: This patient's estimated [...] Lab Alirio Hudson MD CHEMISTRY ORDERABLE S [facility] [place] [address] * (ABNORMAL) Hemogram (05/15/2023 12:50 AM EDT) WBC 9.1 4.0 - 9.5 x10(3)/[facility] RBC 2.19(L) 4.00 - 5.21 x10(6)/[facility] Hemoglobin 7.2(L) 11.7 - 15.5 g/dL [facility] Hematocrit 20.6(L) 35.7 - 45.8 % [facility] MCV 94.1 82.6 - 94.4 fL [facility] MCH 32.9(H) 27.1 - 32.0 pg [facility] MCHC 35.0 31.7 - 35.0 g/dL [facility] Platelets 109(L) 145 - 357 x10(3)/[facility] RDWSD 43.6 37.0 - 46.0 fL [facility] RDWCV 12.9 11.5 - 14.1 % [facility] MPV 10.4 7.6 - 12.9 fL [facility] nRBC % Auto 2.1 % [facility] nRBC Abs Auto 0.190(H) 0.000 - 0.000 x10(3)/[facility] Blood 05/15/2023 12:5 0 AM EDT 05/15/2023 12:52 AM EDT Narrative Resulting Agency Comment Spec In Lab Alirio Hudson MD HEMATOLOGY ORDERABL ES [facility] [place] [address] * (ABNORMAL) BLOOD GAS 2 VENOUS (05/15/2023 12:49 AM EDT) pH Mike 7.33 7.32 - 7.42 [facility] pCO2 Mike 37(L) 41 - 51 mmHg [facility] pO2 Mike 34 25 - 40 mmHg [facility] HCO3 Mike 19.1 mmol/L [facility] BE Mike -6.8 mmol/L [facility] Hgb Blood Gas 10.8(L) 11.7 - 15.5 g/dL [facility] O2HB Mike 58.1 % [facility] COHB Mike 0.3 % [facility] Comment: Nonsmokers: 0.5-1.5% COHB Smokers: Variable, but usually less than 10% Toxic: 20-30% COHB Lethal: Greater than 60% COHB METHB Mike 0.6 <=1.5 % [facility] Na Whole Blood 136 135 - 145 mmol/L [facility] K Whole Blood 3.7 3.5 - 5.0 mmol/L [facility] Comment: Please note: Patients with WBC >100,000 may have falsely elevated Potassium levels. Contact the Clinical Chemistry Laboratory if there are any questions. ICa Whole Blood 1.12(L) 1.15 - 1.33 mmol/L [facility] Comment: Note: ??Total bilirubin higher than 20 mg/dL may lead to falsely low ionized calcium. CL Whole Blood 95(L) 98 - 107 mmol/L [facility] Gluc Whole Bld 101 65 - 199 mg/dL [facility] Comment:Diabetes: >=200 mg/d L plus symptoms Lactate WB 1.3 0.5 - 2.2 mmol/L [facility] Flow Mike 1.0 LPM [facility] BGas Source Venous [facility] Blood 05/15/2023 12:4 9 AM EDT 05/15/2023 12:49 AM EDT Alirio Hudson MD CHEMISTRY ORDERABLE S Performing Organization Address City/State/[facility] Co de Phone Number [facility] [place] [address] * US Retroperitoneal Complete (05/14/2023 3:53 PM [...] Hayden Robledo MD at 05/14/2023 4:32 PM Thank you for letting us participate in the care of this patient. If you are a health care provider and have any questions regarding this report, please contact the number above. For patients who have questions, please contact the health coronary care unit nurse that requested your imaging first. ? Hayden Robledo, Staff Physician Electronically Signed Final Report ?? 05/14/2023 04:39 pm Narrative 05/14/2023 4:39 PM EDT Renal ? (Signed Final 05/14/2023 04:39 pm) PATIENT INFO: ID #: ? [id number] ?: ??[birth year] (67 yrs)(F) Name: ? PURNIMA THACKER ?Visit Date: 05/14/2023 03:44 pm PERFORMED BY: Attending: ?Meena CULP, Hayden Stafford Resident: ? Anand Camejo MD Performed By: ? Consuelo Tello RDMS Referred By: ?ALIRIO HUDSON Location: ? [place] SERVICE(S) PROVIDED: URETRO - Retroperitoneal Complete - [id number] ? [id number] INDICATIONS: [facility] COMPARISON: CT: Abdomen/Pelvis 05/11/23 RIGHT [...] 05/14/2023 04:39 pm) PATIENT INFO: ID #: [id number] : 55 (67 yrs)(F) Name: PURNIMA THACKER Visit Date: 05/14/2023 03:44 pm PERFORMED BY: Attending: Hayden Robledo MD Resident: Anand Camejo MD Performed By: Consuelo Tello RDMS Referred By: ALIRIO HUDSON Location: [place] SERVICE(S) PROVIDED: URETRO - Retroperitoneal Complete - [id number] INDICATIONS: [facility] COMPARISON: CT: Abdomen/Pelvis 05/11/23 RIGHT [...] Hayden Robledo MD at 05/14/2023 4:32 PM Thank you for letting us participate in the care of this patient. If you are a health care provider and have any questions regarding this report, please contact the number above. For patients who have questions, please contact the health coronary care unit nurse that requested your imaging first. Hayden Robledo, Staff Physician Electronically Signed Final Report 05/14/2023 04:39 pm Alirio Hudson MD IMG US GEN ORDERABL ES * CK (05/14/2023 3:17 PM EDT) CK, Total 123 0 - 160 unit/L [facility] Blood 05/14/2023 3:17 PM EDT 05/14/2023 3:31 PM EDT Narrative Resulting Agency Comment Spec In Lab Alirio Hudson MD CHEMISTRY ORDERABLE S Performing Organization Address [facility] [place]/[facility]/ZIP Co de Phone Number [facility] [place] [address] * (ABNORMAL) Uric acid (05/14/2023 3:17 PM EDT) Uric Acid 14.9(H) 2.5 - 6.5 mg/dL [facility] Blood 05/14/2023 3:17 PM EDT 05/14/2023 3:31 PM EDT Narrative Resulting Agency Comment Spec In Lab Alirio Hudson MD CHEMISTRY ORDERABLE S Performing Organization Address [facility]/[facility]/ZIP Co de Phone Number [facility] [place] [address] * (ABNORMAL) Osmolality (05/14/2023 3:17 PM EDT) Osmolality 311(H) 275 - 295 mOsm/kg [facility] Blood 05/14/2023 3:17 PM EDT 05/14/2023 3:31 PM EDT Narrative Resulting Agency Comment Spec In Lab Alirio Hudson MD CHEMISTRY ORDERABLE S Performing Organization Address City/[facility]/ZIP Co de Phone Number [facility] [place] [address] * (ABNORMAL) Differential, Automated (05/14/2023 1:10 AM EDT) Neutrophils % 87.2 % [facility] Neutr Abs (ANC) 9.74(H) 1.70 - 6.10 x10(3)/ L [facility] Lymphocytes % 3.9 % [facility] Lymphocytes Abs 0.4(L) 0.9 - 3.2 x10(3)/[facility] Monocytes % 7.9 % [facility] Monocyte Abs 0.9 0.3 - 0.9 x10(3)/[facility] Eosinophils % 0.0 % [facility] Eosinophils Abs 0.0 0.0 - 0.4 x10(3)/[facility] Basophils % 0.1 % [facility] Basophils Abs 0.0 0.0 - 0.1 x10(3)/[facility] Immature Gran % 0.90 % [facility] Comment: Immature granulocytes(IG's)percentage and absolute count will include metamyelocytes, myelocytes, and promyelocytes. Blood smears from CBCs yielding IG's will be scanned manually for concordance. If this scan disagrees with the automated IG or if promyelocytes are noted, a manual differential will be performed. Amanda Gran Abs 0.10(H) 0.00 - 0.04 x10(3)/[facility] Blood 05/14/2023 1:10 AM EDT 05/14/2023 1:24 AM EDT Narrative Resulting Agency Comment Spec In Lab Bonita TOBAR HEMATOLOGY ORDERABLE S [facility] [place] [address] * (ABNORMAL) Hemogram (05/14/2023 1:10 AM EDT) Pathologist [facility] WBC 11.2(H) 4.0 - 9.5 x10(3)/[facility] RBC 2.19(L) 4.00 - 5.21 x10(6)/[facility] Hemoglobin 7.2(L) 11.7 - 15.5 g/dL [facility] Hematocrit 20.3(L) 35.7 - 45.8 % [facility] MCV 92.7 82.6 - 94.4 [facility] MCH 32.9(H) 27.1 - 32.0 pg [facility] MCHC 35.5(H) 31.7 - 35.0 g/dL [facility] Platelets 112(L) 145 - 357 x10(3)/[facility] RDWSD 41.4 37.0 - 46.0 [facility] RDWCV 12.5 11.5 - 14.1 % [facility] MPV 10.4 7.6 - 12.9 [facility] nRBC % Auto 1.5 % [facility] nRBC Abs Auto 0.170(H) 0.000 - 0.000 x10(3)/[facility] Blood 05/14/2023 1:10 AM EDT 05/14/2023 1:24 AM EDT Narrative Resulting Agency Comment Spec In Lab Bonita TOBAR HEMATOLOGY ORDERABLE S [facility] [place] [address] * (ABNORMAL) Comprehensive metabolic panel (non-fasting) (05/14/2023 1:10 AM EDT) Pathologist [facility] Glucose Lvl 120 65 - 199 mg/dL [facility] Comment:Diabetes: >=200 mg/d L plus symptoms BUN 98(H) 8 - 18 mg/dL [facility] Creatinine 4.80(H) 0.70 - 1.20 mg/dL [facility] Comment:result rechecked-ssc Sodium 132(L) 135 - 145 mmol/L [facility] Potassium 4.1 3.5 - 5.0 mmol/L [facility] Comment: Please note: ??Patients with WBC >100,000 may have falsely elevated Potassium levels. ??For accurate Potassium quantification in these patients send serum separator tube (gold top) for subsequent determinations. ??Contact the Clinical Chemistry Laboratory if there are any questions. Chloride 94(L) 98 - 107 mmol/L [facility] CO2 18(L) 22 - 31 mmol/L [facility] Anion Gap 20(H) 5 - 15 mmol/L [facility] Calcium 8.5 8.5 - 10.5 mg/dL [facility] Total Protein 5.8(L) 6.1 - 8.0 g/dL [facility] Albumin 3.6 3.2 - 5.2 g/dL [facility] AST 319(H) 0 - 30 unit/L [facility] ALT 437(H) 0 - 30 unit/L [facility] Alk Phos 86 35 - 105 unit/L [facility] Total Bilirubin 0.4 0.2 - 1.3 mg/dL [facility] Estimated GFR 9(L) >=60 mL/min/1. 73 m?? [facility] Comment: This patient's estimated [...] MD CHEMISTRY ORDERABLE S Performing Organization Address [facility] [place]/[facility]/ZIP Co de Phone Number [facility] [place] [address] * APTT (05/13/2023 10:15 AM EDT) PTT 27 25 - 37 sec [facility] Comment: The PTT is NOT appropriate for heparin monitoring. Use the Anti-Xa level for heparin monitoring (HEP UFH) or LMWH monitoring (HEP LMW). A PTT less than 37 seconds generally indicates adequate hemostasis. Blood 05/13/2023 10:1 5 AM EDT 05/13/2023 10:46 AM EDT Narrative Resulting Agency Comment Spec In Lab Alirio Hudson MD HEMATOLOGY ORDERABL ES Performing Organization Address [facility] Co de Phone Number [facility] [place] [address] * (ABNORMAL) Prothrombin Time (05/13/2023 10:15 AM EDT) PT 14.6(H) 9.4 - 12.5 sec [facility] INR 1.3 [facility] Comment: An INR <2.0 indicates adequate [...] MD HEMATOLOGY ORDERABL ES Performing Organization Address [facility] [place]/[facility] Co de Phone Number [facility] [place] [address] * EKG 12 Lead (05/13/2023 9:22 AM EDT) Ventricular rate 92 BPM MUSE SYSTEM Atrial Rate 92 BPM MUSE SYSTEM P-R Interval 140 ms MUSE SYSTEM QRS Duration 104 ms MUSE SYSTEM Q-T Interval 384 ms MUSE SYSTEM QTC Calculated (Bezet) 474 ms MUSE SYSTEM Calculated P [place] 33 degrees MUSE SYSTEM Calculated R [place] 41 degrees MUSE SYSTEM Calculated T [place] -35 degrees MUSE SYSTEM INTERPRETATION Sinus rhythm with frequent Premature ventricular complexes Septal infarct , age undetermined ST & T wave abnormality, consider lateral ischemia Abnormal ECG When compared with ECG of 12-MAY-2023 10:10, Premature ventricular complexes are now Present I personally reviewed the tracing and edited the fellows interpretation Confirmed by fellow MD Anitha, [facility] ([id number]) on 05/13/2023 3:25:30 PM Confirmed by Maxx Best ([id number]) on 05/13/2023 8:30:56 PM MUSE SYSTEM 05/13/2023 9:22 AM EDT 05/13/2023 8:30 PM EDT Alirio Hudson MD ECG ORDERABLES MUSE SYSTEM * (ABNORMAL) Differential, Automated (05/13/2023 1:15 AM EDT) Pathologist [facility] Neutrophils % 88.1 % [facility] Neutr Abs (ANC) 7.62(H) 1.70 - 6.10 x10(3)/mc L [facility] Lymphocytes % 3.1 % [facility] Lymphocytes Abs 0.3(L) 0.9 - 3.2 x10(3)/mc L [facility] Monocytes % 7.9 % [facility] Monocyte Abs 0.7 0.3 - 0.9 x10(3)/mc L [facility] Eosinophils % 0.0 % [facility] Eosinophils Abs 0.0 0.0 - 0.4 x10(3)/mc L [facility] Basophils % 0.1 % [facility] Basophils Abs 0.0 0.0 - 0.1 x10(3)/mc L [facility] Immature Gran % 0.80 % [facility] Comment: Immature granulocytes(IG's)percentage and absolute count will include metamyelocytes, myelocytes, and promyelocytes. Blood smears from CBCs yielding IG's will be scanned manually for concordance. If this scan disagrees with the automated IG or if promyelocytes are noted, a manual differential will be performed. Amanda Gran Abs 0.07(H) 0.00 - 0.04 x10(3)/mc L [facility] Blood 05/13/2023 1:15 AM EDT 05/13/2023 1:29 AM EDT Narrative Resulting Agency Comment Spec In Lab Lorri TOBAR HEMATOLOGY ORDERABLE S [facility] [place] [address] * (ABNORMAL) Hemogram (05/13/2023 1:15 AM EDT) WBC 8.6 4.0 - 9.5 x10(3)/[facility] RBC 2.37(L) 4.00 - 5.21 x10(6)/[facility] Hemoglobin 7.8(L) 11.7 - 15.5 g/dL [facility] Hematocrit 22.2(L) 35.7 - 45.8 % [facility] MCV 93.7 82.6 - 94.4 fL [facility] MCH 32.9(H) 27.1 - 32.0 pg [facility] MCHC 35.1(H) 31.7 - 35.0 g/dL [facility] Platelets 130(L) 145 - 357 x10(3)/[facility] RDWSD 41.7 37.0 - 46.0 fL [facility] RDWCV 12.5 11.5 - 14.1 % [facility] MPV 10.2 7.6 - 12.9 fL [facility] nRBC % Auto 0.5 % [facility] nRBC Abs Auto 0.040(H) 0.000 - 0.000 x10(3)/mcL [facility] Blood 05/13/2023 1:15 AM EDT 05/13/2023 1:29 AM EDT Narrative Resulting Agency Comment Spec In Lab Lorri TOBAR HEMATOLOGY ORDERABLE S [facility] [place] [address] * (ABNORMAL) Hepatic Function Panel (05/13/2023 1:15 AM EDT) Total Protein 5.5(L) 6.1 - 8.0 g/dL [facility] Albumin 3.0(L) 3.2 - 5.2 g/dL [facility] AST 792(H) 0 - 30 unit/L [facility] ALT 903(H) 0 - 30 unit/L [facility] Alk Phos 85 35 - 105 unit/L [facility] Total Bilirubin 0.5 0.2 - 1.3 mg/dL [facility] Bili, Direct 0.3 0.0 - 0.3 mg/dL [facility] Blood 05/13/2023 1:15 AM EDT 05/13/2023 1:29 AM EDT Narrative Resulting Agency Comment Spec In Lab Alirio Hudson MD CHEMISTRY ORDERABLE S [facility] [place] [address] * (ABNORMAL) Basic Metabolic Panel (non-fasting) (05/13/2023 1:15 AM EDT) Glucose Lvl 107 65 - 199 mg/dL [facility] Comment:Diabetes: >=200 mg/d L plus symptoms BUN 82(H) 8 - 18 mg/dL [facility] Creatinine 3.15(H) 0.70 - 1.20 mg/dL [facility] Comment:result rechecked-JSJ Sodium 132(L) 135 - 145 mmol/L [facility] Potassium 3.8 3.5 - 5.0 mmol/L [facility] Comment: Please note: ??Patients with WBC >100,000 may have falsely elevated Potassium levels. ??For accurate Potassium quantification in these patients send serum separator tube (gold top) for subsequent determinations. ??Contact the Clinical Chemistry Laboratory if there are any questions. Chloride 95(L) 98 - 107 mmol/L [facility] CO2 20(L) 22 - 31 mmol/L [facility] Anion Gap 17(H) 5 - 15 mmol/L [facility] Calcium 8.3(L) 8.5 - 10.5 mg/dL [facility] Estimated GFR 16(L) >=60 mL/min/1. 73 m?? [facility] Comment: This patient's estimated [...] Lab Alirio Hudson MD CHEMISTRY ORDERABLE S [facility] [place] [address] * (ABNORMAL) BLOOD GAS 2 ARTERIAL (05/12/2023 3:57 PM EDT) pH Art 7.39 7.35 - 7.45 [facility] pCO2 Art 33(L) 35 - 45 mmHg [facility] pO2 Art 101 85 - 104 mmHg [facility] HCO3 Art 19.5(L) 20.0 - 26.0 mmol/L [facility] BE Art -5.5(L) -3.0 - 3.0 mmol/L [facility] Hgb Blood Gas 9.8(L) 11.7 - 15.5 g/dL [facility] O2HB Art 95.2 94.0 - 97.0 % [facility] COHB Art 0.2 % [facility] Comment: Nonsmokers: 0.5-1.5% COHB Smokers: Variable, but usually less than 10% Toxic: 20-30% COHB Lethal: Greater than 60% COHB METHB Art 0.8 <=1.5 % [facility] Na Whole Blood 129(L) 135 - 145 mmol/L [facility] K Whole Blood 3.8 3.5 - 5.0 mmol/L [facility] Comment: Please note: Patients with WBC >100,000 may have falsely elevated Potassium levels. Contact the Clinical Chemistry Laboratory if there are any questions. ICa Whole Blood 1.05(L) 1.15 - 1.33 mmol/L [facility] Comment: Note: ??Total bilirubin higher than 20 mg/dL may lead to falsely low ionized calcium. CL Whole Blood 96(L) 98 - 107 mmol/L [facility] Gluc Whole Bld 178 65 - 199 mg/dL [facility] Comment:Diabetes: >=200 mg/d L plus symptoms. Lactate WB 1.5 0.5 - 2.2 mmol/L [facility] FIO2 Art 40 % [facility] PF Ratio Art 252 [facility] Blood 05/12/2023 3:57 PM EDT 05/12/2023 3:57 PM EDT Alirio Hudson MD CHEMISTRY ORDERABLE S Performing Organization Address City/[facility]/ZIP Co de Phone Number [facility] [place] [address] * (ABNORMAL) Coox2 (05/12/2023 2:25 PM EDT) pO2 Coox 37 mmHg [facility] Hgb Blood Gas 9.5(L) 11.7 - 15.5 g/dL [facility] O2HB Coox 59.9 % [facility] COHB Coox 0.3 % [facility] Comment: Nonsmokers: 0.5-1.5% COHB Smokers: Variable, but usually less than 10% Toxic: 20-30% COHB Lethal: Greater than 60% COHB METHB Coox 0.7 <=1.5 % [facility] Source Coox Mixed Venous [facility] Blood 05/12/2023 2:25 PM EDT 05/12/2023 2:25 PM EDT Alirio Hudson MD CHEMISTRY ORDERABLE S Performing Organization Address City/[facility] Co de Phone Number [facility] [place] [address] * (ABNORMAL) BLOOD GAS 2 ARTERIAL (05/12/2023 2:23 PM EDT) pH Art 7.37 7.35 - 7.45 [facility] pCO2 Art 36 35 - 45 mmHg [facility] pO2 Art 102 85 - 104 mmHg [facility] HCO3 Art 20.4 20.0 - 26.0 mmol/L [facility] BE Art -4.8(L) -3.0 - 3.0 mmol/L [facility] Hgb Blood Gas 12.7 11.7 - 15.5 g/dL [facility] O2HB Art 95.4 94.0 - 97.0 % [facility] COHB Art 0.3 % [facility] Comment: Nonsmokers: 0.5-1.5% COHB Smokers: Variable, but usually less than 10% Toxic: 20-30% COHB Lethal: Greater than 60% COHB METHB Art 0.7 <=1.5 % [facility] Na Whole Blood 129(L) 135 - 145 mmol/L [facility] K Whole Blood 3.7 3.5 - 5.0 mmol/L [facility] Comment: Please note: Patients with WBC >100,000 may have falsely elevated Potassium levels. Contact the Clinical Chemistry Laboratory if there are any questions. ICa Whole Blood 1.05(L) 1.15 - 1.33 mmol/L [facility] Comment: Note: ??Total bilirubin higher than 20 mg/dL may lead to falsely low ionized calcium. CL Whole Blood 95(L) 98 - 107 mmol/L [facility] Gluc Whole Bld 168 65 - 199 mg/dL [facility] Comment:Diabetes: >=200 mg/d L plus symptoms. Lactate WB 1.8 0.5 - 2.2 mmol/L [facility] FIO2 Art 40 % [facility] PF Ratio Art 255 [facility] Blood 05/12/2023 2:23 PM EDT 05/12/2023 2:23 PM EDT Alirio Hudson MD CHEMISTRY ORDERABLE S [facility] [place] [address] * (ABNORMAL) Troponin (05/12/2023 2:05 PM EDT) Troponin-T HS 1,022(H) <=14 ng/L [facility] Comment: This patient's troponin T concentration [...] troponin value can be found in the [facility] Test Catalog Troponin - [facility] Test Catalog Reference: Fourth Butler Definition of Myocardial Infarction. Journal of the [place] [employer] 2018;72:7231-2672 Blood 05/12/2023 2:05 PM EDT 05/12/2023 2:14 PM EDT Narrative Resulting Agency Comment Spec In Lab Alirio Hudson MD CHEMISTRY ORDERABLE S Performing Organization Address [facility] [place]/[facility]/ZIP Co de Phone Number [facility] [place] [address] * (ABNORMAL) Hemoglobin (05/12/2023 2:05 PM EDT) Hemoglobin 8.5(L) 11.7 - 15.5 g/dL [facility] Blood 05/12/2023 2:05 PM EDT 05/12/2023 2:14 PM EDT Narrative Resulting Agency Comment Spec In Lab Alirio Hudson MD HEMATOLOGY ORDERABL ES Performing Organization Address City/[facility]/ZIP Co de Phone Number [facility] [place] [address] * Potassium (05/12/2023 2:05 PM EDT) Potassium 3.9 3.5 - 5.0 mmol/L [facility] Comment: Please note: ??Patients [...] Lab Alirio Hudson MD CHEMISTRY ORDERABLE S [facility] [place] [address] * (ABNORMAL) BLOOD GAS 2 ARTERIAL (05/12/2023 11:05 AM EDT) pH Art 7.34(L) 7.35 - 7.45 [facility] pCO2 Art 42 35 - 45 mmHg [facility] pO2 Art 73(L) 85 - 104 mmHg [facility] HCO3 Art 22.1 20.0 - 26.0 mmol/L [facility] BE Art -3.6(L) -3.0 - 3.0 mmol/L [facility] Hgb Blood Gas 9.3(L) 11.7 - 15.5 g/dL [facility] O2HB Art 89.3(L) 94.0 - 97.0 % [facility] COHB Art 0.2 % [facility] Comment: Nonsmokers: 0.5-1.5% COHB Smokers: Variable, but usually less than 10% Toxic: 20-30% COHB Lethal: Greater than 60% COHB METHB Art 0.9 <=1.5 % [facility] Na Whole Blood 131(L) 135 - 145 mmol/L [facility] K Whole Blood 3.8 3.5 - 5.0 mmol/L [facility] Comment: Please note: Patients with WBC >100,000 may have falsely elevated Potassium levels. Contact the Clinical Chemistry Laboratory if there are any questions. ICa Whole Blood 1.04(L) 1.15 - 1.33 mmol/L [facility] Comment: Note: ??Total bilirubin higher than 20 mg/dL may lead to falsely low ionized calcium. CL Whole Blood 96(L) 98 - 107 mmol/L [facility] Gluc Whole Bld 152 65 - 199 mg/dL [facility] Comment:Diabetes: >=200 mg/d L plus symptoms. Lactate WB 2.8(H) 0.5 - 2.2 mmol/L [facility] FIO2 Art 40 % [facility] PF Ratio Art 182 [facility] Blood 05/12/2023 11:0 5 AM EDT 05/12/2023 11:05 AM EDT Alirio Hudson MD CHEMISTRY ORDERABLE S Performing Organization Address City/State/[facility] Co de Phone Number [facility] [place] [address] * (ABNORMAL) BLOOD GAS 2 ARTERIAL (05/12/2023 10:14 AM EDT) pH Art 7.18(Criti gabrielle) 7.35 - 7.45 [facility] Comment:Noted by band instrument maker. pCO2 Art 45 35 - 45 mmHg [facility] pO2 Art 186(H) 85 - 104 mmHg [facility] HCO3 Art 16.2(L) 20.0 - 26.0 mmol/L [facility] BE Art -12.2(L) -3.0 - 3.0 mmol/L [facility] Hgb Blood Gas 10.0(L) 11.7 - 15.5 g/dL [facility] O2HB Art 97.0 94.0 - 97.0 % [facility] COHB Art 0.2 % [facility] Comment: Nonsmokers: 0.5-1.5% COHB Smokers: Variable, but usually less than 10% Toxic: 20-30% COHB Lethal: Greater than 60% COHB METHB Art 0.9 <=1.5 % [facility] Na Whole Blood 129(L) 135 - 145 mmol/L [facility] K Whole Blood 3.6 3.5 - 5.0 mmol/L [facility] Comment: Please note: Patients with WBC >100,000 may have falsely elevated Potassium levels. Contact the Clinical Chemistry Laboratory if there are any questions. ICa Whole Blood 1.10(L) 1.15 - 1.33 mmol/L [facility] Comment: Note: ??Total bilirubin higher than 20 mg/dL may lead to falsely low ionized calcium. CL Whole Blood 97(L) 98 - 107 mmol/L [facility] Gluc Whole Bld 161 65 - 199 mg/dL [facility] Comment:Diabetes: >=200 mg/d L plus symptoms. Lactate WB 3.3(H) 0.5 - 2.2 mmol/L [facility] FIO2 Art 100 % [facility] PF Ratio Art 186 [facility] Blood 05/12/2023 10:1 4 AM EDT 05/12/2023 10:14 AM EDT Alirio Hudson MD CHEMISTRY ORDERABLE S Performing Organization Address City/State/[facility] Co de Phone Number [facility] [place] [address] * EKG 12 Lead (05/12/2023 10:10 AM EDT) Ventricular rate 116 BPM MUSE SYSTEM Atrial Rate 116 BPM MUSE SYSTEM P-R Interval 158 ms MUSE SYSTEM QRS Duration 114 ms MUSE SYSTEM Q-T Interval 348 ms MUSE SYSTEM QTC Calculated (Bezet) 483 ms MUSE SYSTEM Calculated P [place] 37 degrees MUSE SYSTEM Calculated R [place] 31 degrees MUSE SYSTEM Calculated T [place] -138 degrees MUSE SYSTEM INTERPRETATION Sinus tachycardia with intermittent aberrant ventricular conduction Possible Left atrial enlargement Incomplete left bundle block Left ventricular hypertrophy with repolarization abnormality ( Sokolow-Orozco , [place] product ) ST & T wave abnormality in Inferolateral leads Abnormal ECG When compared with ECG of 10-MAY-2023 13:16, ST & T wave abnormality is more pronounced in inferolateral leads I personally reviewed the tracing and edited the fellows interpretation Confirmed by fellow MD Anuja, Jim ([id number]) on 05/12/2023 1:04:20 PM Confirmed by MD Villareal Danette ([id number]) on 05/12/2023 9:28:34 PM MUSE SYSTEM 05/12/2023 [...] who have questions please contact the health coronary care unit nurse that requested your imaging first. ? Narrative 05/12/2023 10:08 AM EDT EXAMINATION: XR CHEST ONE VIEW CLINICAL HISTORY: Post TAVR TECHNIQUE: 1 view of the chest COMPARISON: Chest radiograph from earlier today FINDINGS: Interval placement of endotracheal tube with tip terminating 2 cm above the shira. Interval placement of enteric tube projecting along the expected course of the esophagus and outside the jghxc-rc-jbxa. Interval retraction of right IJ approach pulmonary [...] expected course ofthe esophagus and outside the lkhgx-sp-zicp. Interval retraction of right IJ approach pulmonary [...] patients who have questions please contactthe health coronary care unit nurse that requested your imaging first. Alirio Hudson MD IMG DX ORDERABLES * [...] 1955 ? Height: 154 cm ? Account: [id number] Age: 67 yrs ? Weight: 75 kg Gender: Female ?BSA: 1.7 m2 Ordering Physician: RADHA HOLLINS Referring Physician: RADHA HOLLINS Performed By: Dilma Bee RDCS Reason For Study: Guidance for TAVR procedure Exam Location: [facility]. Interpretation Summary PRE TAVR: There is [...] mL/m2. POST TAVR: Normal function of the uthvq-gg-yaxvu prosthesis. See below for hemodynamic parameters. Slight improvement in left and right ventricular systolic function. LVEF now 20-25%. No pericardial effusion. See report for additional findings. Procedure Limited - 32326. Doppler - 38962. Color Doppler - 28314. Left Ventricle Left ventricle is of normal [...] Date: 307:33 AMBP: 96/63 mmHg Patient Location: [address] : 1955 Height: 154 cm Account: [id number] Age: 67 yrs Weight: 75 kg Gender: Female BSA: 1.7 m2 Ordering Physician: RADHA HOLLINS Referring Physician: RADHA HOLLINS Performed By: Dilma Bee RDCS Reason For Study: Guidance for TAVR procedure Exam Location: [facility]. Interpretation Summary PRE TAVR: There is [...] 28mL/m2. POST TAVR: Normal function of the gvumj-rt-ejxoc prosthesis. See belowfor hemodynamic parameters. Slight improvement in left and right ventricularsystolic function. LVEF now 20-25%. No pericardial effusion. See report for additional findings. Procedure Limited - 37167. Doppler - 43756. Color Doppler - 70516. Left Ventricle Left ventricle is of normal [...] Modality Other Narrative 05/12/2023 2:37 PM EDT ?[facility] ? Cardiac Catheterization/Intervention Report ? Patient Name: Kirstie, Purnima M. ? Procedure Date: 05/12/2023 ? A #: [id number] ? Primary Physician: Antelmo Sharma ? Case #: [id number] ? File Name: [id number] ? Catheterization Order Number: [id number] ? [facility] ?[facility] ? Final Report [place], [place] ? Patient Name: ? Purnimakary Thacker ? ID#: ?[id number] ? : ?1955 ? Procedure Date: ? May 12, 2023 ? Case #: ? [id number] ? Room: ? 6 ? Case Physicians: ?Antelmo Sharma M.D. ?Start: ?08:03 ?Alirio Hudson M.D. ?Admission: ??05/08/2023 ?Lynda Mcgowan M.D. ? Discharge: ??05/22/2023 ?Fellow: ? Emad Mogadam, M.D. ? Referring Physician: ??Mario Alberto Chin M.D. ? Procedures: ?* Coronary Angiography ?* Left Heart Catheterization ?* Coronary Stent Insertion ?* Transcatheter Aortic Valve Replacement ?* Vascular Closure Device Deployment ?* Temporary Pacemaker Insertion In Recreational Leader ?* Endotracheal Intubation By Non-Cath Physician ?* [...] was designated as ASA Class IV. The CSHA clinical ?frailty scale is 4: Vulnerable. ? [...] guide. ??A premounted 4.00 x 30 mm Nils Canaseraga (MINNA) was ? deployed with a maximum [...] calculated STS risk score was 30.1%. A hilvz-pc-nwofn ?procedure was performed on the pre-existing bioprosthetic stented ?prosthesis. The priority of the monyz-la-gqstv procedure was Elective. ?The procedure was performed [...] Lai 3 Ultra RESILIA 23 mm THV (s/s=[id number]) transcatheter ?valve was inserted using standard technique. [...] to nor was it given in the ?laborer gold leaf. ?Recommended anti-platelet/anti-thrombotic regimen: ?Continue aspirin 81 mg daily for indefinitely. ?These recommendations are made at the time of the intervention. Patient ?and provider preferences or a changing clinical situation may require ?modification of this regimen. Consult [facility] Interventional Cardiology for ?questions. ? Conclusions: ?* [...] regimen. ? Comments: ?Successful right transfemoral TAVR Wfzwt-zi-Julbj with a 23 mm Lai 3 ?THV. [...] insertion-coronary, access site angiography, ?temporary pacemaker in laborer gold leaf, intubation-non cath physician, vascular ?closure device, transthoracic echo ??and TAVR. Dr. Alirio Hudson M.D. ?performed the left heart catheterization, access site angiography, ?temporary pacemaker in laborer gold leaf, vascular closure device, transthoracic ?echo , TAVR and CPR during cath. Dr. Lynda Mcgowan M.D. performed the ABG, ?anesthesia and intubation-non cath physician. ? Antelmo Sharma M.D. ? Electronically Signed by: Antelmo Sharma M.D. ? Report Finalized: 05/12/2023 ??14:31 ? Report Last Ammended: 07/01/2023 ??11:30 ? Procedure Note Antelmo Sharma MD - 07/01/2023 [facility] Cardiac Catheterization/Intervention Report Patient Name: Purnima Thacker Procedure Date: 05/12/2023 A #: [id number] Primary Physician: Antelmo Sharma Case #: [id number] File Name: [id number] Catheterization Order Number: [id number] [facility] FinalReport [place], [place] Patient Name: Purnima Thacker ID#:[id number] :1955 Procedure Date: May 12, 2023 Case #: [id number] Room: 6 Case Physicians: Antelmo Sharma M.D. Start: 08:03 Alirio Hudson M.D. Admission:05/08/2023 Lynda Mcgowan M.D. Discharge:05/22/2023 Fellow: Rebekah Tejeda M.D. Referring Physician: Mario Alberto Chin M.D. Procedures: * Coronary Angiography * Left Heart Catheterization * Coronary Stent Insertion * Transcatheter Aortic Valve Replacement * Vascular Closure Device Deployment * Temporary Pacemaker Insertion In Recreational Leader * Endotracheal Intubation By Non-Cath Physician * [...] guide. A premounted 4.00 x 30 mm [place] (MINNA) was deployed with a maximum inflation [...] calculated STS risk score was 30.1%. A punbr-go-rspbt procedure was performed on the pre-existing bioprosthetic stented prosthesis. The priority of the lzpfq-mr-[id number] procedure wasElective. The procedure was performed under Moderate sedation performed byLynda Mcgowan M.D. (see anesthesia report for additional details). Alirio Hudson M.D. participated in the case (see Cardiac Surgery reportfor additional details). The TAVR sheath was a 14 Fr Corona eSheath Introducer and theaccess site was femoral. Rapid ventricular pacing was performed. An Corona Lai 3 Ultra RESILIA 23 mm THV (s/i=[id number])transcatheter valve was inserted using standard technique. The [...] prior to nor was it given inthe laborer gold leaf. Recommended anti-platelet/anti-thrombotic regimen: Continue aspirin 81 mg daily for indefinitely. These recommendations are made at the time of the intervention.Patient and provider preferences or a changing clinical situation mayrequire modification of this regimen. Consult [facility] Interventional Cardiologyfor questions. Conclusions: * Nonobstructive disease [...] this regimen. Comments: Successful right transfemoral TAVR Ogfkw-os-Xrouz with a 23 mmSapien 3 THV. We [...] insertion-coronary, access site angiography, temporary pacemaker in laborer gold leaf, intubation-non cath physician,vascular closure device, transthoracic echo and TAVR. Dr. Alirio Hudson M.D. performed the left heart catheterization, access site angiography, temporary pacemaker in laborer gold leaf, vascular closure device,transthoracic echo , TAVR and CPR during cath. Dr. Lynda Mcgoawn M.D. performed theABG, anesthesia and intubation-non cath physician. Antelmo Sharma M.D. Electronically Signed by: Antelmo Sharma M.D. Report Finalized: 05/12/2023 14:31 Report Last Ammended: 07/01/2023 11:30 Antelmo Sharma MD CARDIAC CATH ORDERAB LES * (ABNORMAL) Point of Care Blood Gas Historical (05/12/2023 8:50 AM EDT) POC pH 7.20(Crit ical) 7.35 - 7.45 [facility] Comment:Critical value OKYamel C Lab. POC PCO2 42 35 - 45 mmHg [facility] POC PO2 260(H) 85 - 104 mmHg [facility] POC Base Excess -11.0(L) -3.0 - 3.0 mmol/L [facility] POC HCO3 16.7(L) 20.0 - 26.0 mmol/L [facility] POC Sodium 129(L) 135 - 145 mmol/L [facility] POC Potassium 3.8 3.5 - 5.0 mmol/L [facility] POC Ionized Ca 1.12(L) 1.15 - 1.33 mmol/L [facility] POC Hematocrit 23.0(L) 34.0 - 45.0 % [facility] POC Calc Hgb 7.8(L) 11.2 - 15.7 g/dL [facility] Comment:The calculation of h emoglobin from hematocrit assumes a normal MCHC. POC Bgas Loc CC Lab [facility] Blood 05/12/2023 8:50 AM EDT 05/13/2023 12:00 PM EDT Alirio Hudson MD CHEMISTRY ORDERABLE S Performing Organization Address City/State/[facility] Co de Phone Number [facility] [place] [address] * (ABNORMAL) Point of Care Blood Gas Historical (05/12/2023 8:10 AM EDT) POC pH 7.27(Crit ical) 7.35 - 7.45 [facility] Comment:Critical value Yamel KRAUSE C Lab. POC PCO2 37 35 - 45 mmHg [facility] POC PO2 29(Critic al) 85 - 104 mmHg [facility] Comment:Critical value OK C C Lab. POC Base Excess -10.0(L) -3.0 - 3.0 mmol/L [facility] POC HCO3 16.7(L) 20.0 - 26.0 mmol/L [facility] POC Sodium 123(L) 135 - 145 mmol/L [facility] POC Potassium 4.0 3.5 - 5.0 mmol/L [facility] POC Ionized Ca 1.12(L) 1.15 - 1.33 mmol/L [facility] POC Hematocrit 27.0(L) 34.0 - 45.0 % [facility] POC Calc Hgb 9.2(L) 11.2 - 15.7 g/dL [facility] Comment:The calculation of h emoglobin from hematocrit assumes a normal MCHC. POC Bgas Loc CC Lab [facility] Blood 05/12/2023 8:10 AM EDT 05/13/2023 12:00 PM EDT Alirio Hudson MD CHEMISTRY ORDERABLE S Performing Organization Address City/[facility]/ZIP Co de Phone Number [facility] [place] [address] * (ABNORMAL) Lactate, whole blood, send to lab ([facility]) (05/12/2023 7:00 AM EDT) Lactate WB 2.4(H) 0.5 - 2.2 mmol/L [facility] Blood 05/12/2023 7:00 AM EDT 05/12/2023 7:09 AM EDT Narrative Resulting Agency Comment Spec In Lab Radha Hollins MD CHEMISTRY ORDERABL ES Performing Organization Address City/[facility]/ZIP Co de Phone Number [facility] [place] [address] * (ABNORMAL) Comprehensive metabolic panel (non-fasting) (05/12/2023 6:00 AM EDT) Glucose Lvl 167 65 - 199 mg/dL [facility] Comment:Diabetes: >=200 mg/d L plus symptoms BUN 67(H) 8 - 18 mg/dL [facility] Creatinine 2.01(H) 0.70 - 1.20 mg/dL [facility] Sodium 131(L) 135 - 145 mmol/L [facility] Potassium 4.3 3.5 - 5.0 mmol/L [facility] Comment: Please note: ??Patients with WBC >100,000 may have falsely elevated Potassium levels. ??For accurate Potassium quantification in these patients send serum separator tube (gold top) for subsequent determinations. ??Contact the Clinical Chemistry Laboratory if there are any questions. Chloride 97(L) 98 - 107 mmol/L [facility] CO2 14(L) 22 - 31 mmol/L [facility] Anion Gap 20(H) 5 - 15 mmol/L [facility] Calcium 8.6 8.5 - 10.5 mg/dL [facility] Total Protein 6.3 6.1 - 8.0 g/dL [facility] Albumin 3.5 3.2 - 5.2 g/dL [facility] AST 1,435(H) 0 - 30 unit/L [facility] ALT 1,174(H) 0 - 30 unit/L [facility] Alk Phos 100 35 - 105 unit/L [facility] Total Bilirubin 0.9 0.2 - 1.3 mg/dL [facility] Estimated GFR 27(L) >=60 mL/min/1. 73 m?? [facility] Comment: This patient's estimated [...] Lab Radha Hollins MD CHEMISTRY ORDERABL ES [facility] [place] [address] * (ABNORMAL) Coox2 (05/12/2023 5:08 AM EDT) pO2 Coox 24 mmHg [facility] Hgb Blood Gas 10.4(L) 11.7 - 15.5 g/dL [facility] O2HB Coox 30.7 % [facility] COHB Coox 0.3 % [facility] Comment: Nonsmokers: 0.5-1.5% COHB Smokers: Variable, but usually less than 10% Toxic: 20-30% COHB Lethal: Greater than 60% COHB METHB Coox 0.8 <=1.5 % [facility] Source Coox Mixed Venous [facility] Blood 05/12/2023 5:08 AM EDT 05/12/2023 5:08 AM EDT Radha Hollins MD CHEMISTRY ORDERABL ES [facility] [place] [address] * (ABNORMAL) Coox2 (05/12/2023 3:21 AM EDT) pO2 Coox 25 mmHg [facility] Hgb Blood Gas 10.8(L) 11.7 - 15.5 g/dL [facility] O2HB Coox 32.7 % [facility] COHB Coox 0.3 % [facility] Comment: Nonsmokers: 0.5-1.5% COHB Smokers: Variable, but usually less than 10% Toxic: 20-30% COHB Lethal: Greater than 60% COHB METHB Coox 0.7 <=1.5 % [facility] Source Coox Mixed Venous [facility] Blood 05/12/2023 3:21 AM EDT 05/12/2023 3:21 AM EDT Radha Hollins MD CHEMISTRY ORDERABL ES [facility] [place] [address] * (ABNORMAL) BLOOD GAS 2 ARTERIAL (05/12/2023 3:18 AM EDT) pH Art 7.34(L) 7.35 - 7.45 [facility] pCO2 Art 30(L) 35 - 45 mmHg [facility] pO2 Art 72(L) 85 - 104 mmHg [facility] HCO3 Art 16.0(L) 20.0 - 26.0 mmol/L [facility] BE Art -9.8(L) -3.0 - 3.0 mmol/L [facility] Hgb Blood Gas 11.0(L) 11.7 - 15.5 g/dL [facility] O2HB Art 89.8(L) 94.0 - 97.0 % [facility] COHB Art 0.3 % [facility] Comment: Nonsmokers: 0.5-1.5% COHB Smokers: Variable, but usually less than 10% Toxic: 20-30% COHB Lethal: Greater than 60% COHB METHB Art 0.7 <=1.5 % [facility] Na Whole Blood 131(L) 135 - 145 mmol/L [facility] K Whole Blood 4.2 3.5 - 5.0 mmol/L [facility] Comment: Please note: Patients with WBC >100,000 may have falsely elevated Potassium levels. Contact the Clinical Chemistry Laboratory if there are any questions. ICa Whole Blood 1.12(L) 1.15 - 1.33 mmol/L [facility] Comment: Note: ??Total bilirubin higher than 20 mg/dL may lead to falsely low ionized calcium. CL Whole Blood 100 98 - 107 mmol/L [facility] Gluc Whole Bld 160 65 - 199 mg/dL [facility] Comment:Diabetes: >=200 mg/d L plus symptoms. Lactate WB 2.7(H) 0.5 - 2.2 mmol/L [facility] Flow Art 5.0 LPM [facility] Blood 05/12/2023 3:18 AM EDT 05/12/2023 3:18 AM EDT Radha Hollins MD CHEMISTRY ORDERABL ES Performing Organization Address City/[facility] Co de Phone Number [facility] [place] [address] * (ABNORMAL) Coox2 (05/12/2023 1:14 AM EDT) pO2 Coox 28 mmHg [facility] Hgb Blood Gas 10.9(L) 11.7 - 15.5 g/dL [facility] O2HB Coox 37.3 % [facility] COHB Coox 0.3 % [facility] Comment: Nonsmokers: 0.5-1.5% COHB Smokers: Variable, but usually less than 10% Toxic: 20-30% COHB Lethal: Greater than 60% COHB METHB Coox 0.5 <=1.5 % [facility] Source Coox Mixed Venous [facility] Blood 05/12/2023 1:14 AM EDT 05/12/2023 1:14 AM EDT Radha Hollins MD CHEMISTRY ORDERABL ES Performing Organization Address City/[facility] Co de Phone Number [facility] [place] [address] * (ABNORMAL) BLOOD GAS 2 ARTERIAL (05/12/2023 1:06 AM EDT) pH Art 7.34(L) 7.35 - 7.45 [facility] pCO2 Art 30(L) 35 - 45 mmHg [facility] pO2 Art 81(L) 85 - 104 mmHg [facility] HCO3 Art 15.7(L) 20.0 - 26.0 mmol/L [facility] BE Art -10.1(L) -3.0 - 3.0 mmol/L [facility] Hgb Blood Gas 11.0(L) 11.7 - 15.5 g/dL [facility] O2HB Art 92.3(L) 94.0 - 97.0 % [facility] COHB Art 0.2 % [facility] Comment: Nonsmokers: 0.5-1.5% COHB Smokers: Variable, but usually less than 10% Toxic: 20-30% COHB Lethal: Greater than 60% COHB METHB Art 0.6 <=1.5 % [facility] Na Whole Blood 131(L) 135 - 145 mmol/L [facility] K Whole Blood 4.2 3.5 - 5.0 mmol/L [facility] Comment: Please note: Patients with WBC >100,000 may have falsely elevated Potassium levels. Contact the Clinical Chemistry Laboratory if there are any questions. ICa Whole Blood 1.13(L) 1.15 - 1.33 mmol/L [facility] Comment: Note: ??Total bilirubin higher than 20 mg/dL may lead to falsely low ionized calcium. CL Whole Blood 99 98 - 107 mmol/L [facility] Gluc Whole Bld 132 65 - 199 mg/dL [facility] Comment:Diabetes: >=200 mg/d L plus symptoms. Lactate WB 2.7(H) 0.5 - 2.2 mmol/L [facility] Flow Art 5.0 LPM [facility] Blood 05/12/2023 1:06 AM EDT 05/12/2023 1:06 AM EDT Radha Hollins MD CHEMISTRY ORDERABL ES [facility] [place] [address] * (ABNORMAL) Differential, Automated (05/12/2023 1:05 AM EDT) Neutrophils % 83.3 % [facility] Neutr Abs (ANC) 7.49(H) 1.70 - 6.10 x10(3)/[facility] Lymphocytes % 7.1 % [facility] Lymphocytes Abs 0.6(L) 0.9 - 3.2 x10(3)/[facility] Monocytes % 8.9 % [facility] Monocyte Abs 0.8 0.3 - 0.9 x10(3)/[facility] Eosinophils % 0.0 % [facility] Eosinophils Abs 0.0 0.0 - 0.4 x10(3)/[facility] Basophils % 0.1 % [facility] Basophils Abs 0.0 0.0 - 0.1 x10(3)/[facility] Immature Gran % 0.60 % [facility] Comment: Immature granulocytes(IG's)percentage and absolute count will include metamyelocytes, myelocytes, and promyelocytes. Blood smears from CBCs yielding IG's will be scanned manually for concordance. If this scan disagrees with the automated IG or if promyelocytes are noted, a manual differential will be performed. Amanda Gran Abs 0.05(H) 0.00 - 0.04 x10(3)/[facility] Blood 05/12/2023 1:05 AM EDT 05/12/2023 1:15 AM EDT Narrative Resulting Agency Comment Spec In Lab Gianni Fletcher MD HEMATOLOGY ORDERABLE S [facility] [place] [address] * (ABNORMAL) Hemogram (05/12/2023 1:05 AM EDT) WBC 9.0 4.0 - 9.5 x10(3)/[facility] RBC 3.01(L) 4.00 - 5.21 x10(6)/[facility] Hemoglobin 9.8(L) 11.7 - 15.5 g/dL [facility] Hematocrit 28.7(L) 35.7 - 45.8 % [facility] MCV 95.3(H) 82.6 - 94.4 [facility] MCH 32.6(H) 27.1 - 32.0 pg [facility] MCHC 34.1 31.7 - 35.0 g/dL [facility] Platelets 186 145 - 357 x10(3)/[facility] RDWSD 43.7 37.0 - 46.0 [facility] RDWCV 12.7 11.5 - 14.1 % [facility] MPV 10.3 7.6 - 12.9 [facility] nRBC % Auto 0.0 % [facility] nRBC Abs Auto 0.000 0.000 - 0.000 x10(3)/[facility] Blood 05/12/2023 1:05 AM EDT 05/12/2023 1:15 AM EDT Narrative Resulting Agency Comment Spec In Lab Gianni Fletcher MD HEMATOLOGY ORDERABLE S [facility] [place] [address] * (ABNORMAL) Comprehensive metabolic panel (non-fasting) (05/12/2023 1:05 AM EDT) Glucose Lvl 141 65 - 199 mg/dL [facility] Comment:Diabetes: >=200 mg/d L plus symptoms BUN 63(H) 8 - 18 mg/dL [facility] Creatinine 1.86(H) 0.70 - 1.20 mg/dL [facility] Sodium 131(L) 135 - 145 mmol/L [facility] Potassium 4.4 3.5 - 5.0 mmol/L [facility] Comment: Please note: ??Patients with WBC >100,000 may have falsely elevated Potassium levels. ??For accurate Potassium quantification in these patients send serum separator tube (gold top) for subsequent determinations. ??Contact the Clinical Chemistry Laboratory if there are any questions. Chloride 96(L) 98 - 107 mmol/L [facility] CO2 14(L) 22 - 31 mmol/L [facility] Anion Gap 21(H) 5 - 15 mmol/L [facility] Calcium 9.0 8.5 - 10.5 mg/dL [facility] Total Protein 6.6 6.1 - 8.0 g/dL [facility] Albumin 3.9 3.2 - 5.2 g/dL [facility] AST 1,227(H) 0 - 30 unit/L [facility] ALT 1,097(H) 0 - 30 unit/L [facility] Alk Phos 108(H) 35 - 105 unit/L [facility] Total Bilirubin 1.0 0.2 - 1.3 mg/dL [facility] Estimated GFR 29(L) >=60 mL/min/1. 73 m?? [facility] Comment: This patient's estimated [...] Lab Radha Hollins MD CHEMISTRY [place] [address] * XR Chest One View (05/12/2023 1:00 [...] who have questions please contact the health coronary care unit nurse that requested your imaging first. ? Narrative [...] patients who have questions please contactthe health coronary care unit nurse that requested your imaging first. Radha Hollins MD IMG DX ORDERABLES * (ABNORMAL) Coox2 (05/12/2023 12:30 AM EDT) pO2 Coox 22 mmHg [facility] Hgb Blood Gas 10.9(L) 11.7 - 15.5 g/dL [facility] O2HB Coox 25.1 % [facility] COHB Coox 0.3 % [facility] Comment: Nonsmokers: 0.5-1.5% COHB Smokers: Variable, but usually less than 10% Toxic: 20-30% COHB Lethal: Greater than 60% COHB METHB Coox 1.4 <=1.5 % [facility] Source Coox Mixed Venous [facility] Blood 05/12/2023 12:3 0 AM EDT 05/12/2023 12:30 AM EDT Radha Hollins MD CHEMISTRY ORDERABL ES [facility] [place] [address] * XR Chest One View (05/11/2023 11:45 [...] who have questions please contact the health coronary care unit nurse that requested your imaging first. ? Narrative [...] patients who have questions please contactthe health coronary care unit nurse that requested your imaging first. Radha Hollins MD IMG DX ORDERABLES * (ABNORMAL) Lactate, whole blood, send to lab ([facility]) (05/11/2023 7:40 PM EDT) Lactate WB 4.8(Critic al) 0.5 - 2.2 mmol/L [facility] Comment:Called by: [facility], Read back by: Magdalena Baires, Date/Time:05/11/23 19:54. Blood 05/11/2023 7:40 PM EDT 05/11/2023 7:49 PM EDT Narrative Resulting Agency Comment Spec In Lab Radha Hollins MD CHEMISTRY ORDERABL ES [facility] [place] [address] * Urine culture (05/11/2023 7:22 PM EDT) Pathologist [facility] Urine Culture 50,000-99,000 cfu/ml Normal mucosal herman Susceptibilit y testing not routinely performed for Coagulase Negative Staphylococcu s species and other Gram Positive organisms from urine. [facility] Clean Catch Urine 05/11/2023 7:22 PM EDT 05/11/2023 8:50 PM EDT Narrative Resulting Agency Comment Spec In Lab Brody Kaplan JOCKEY AGENT MICROBIOLOGY - GENE RAL ORDERABLES [facility] [place] [address] * (ABNORMAL) Urinalysis Microscopic Exam (05/11/2023 7:22 PM EDT) [facility] RBC UA 2 0 - 4 /HPF [facility] WBC UA >100(H) 0 - 5 /HPF [facility] Bacteria UA Occasional (A) None /HPF [facility] Squam Epith UA 5(H) <=4 /HPF [facility] Hyaline Cast UA 3(H) 0 - 2 /LPF [facility] Clean Catch Urine 05/11/2023 7:22 PM EDT 05/11/2023 7:31 PM EDT Narrative Resulting Agency Comment Spec In Lab Brody Kaplan JOCKEY AGENT URINE ORDERABLES [facility] [place] [address] * (ABNORMAL) Urinalysis with reflex Culture (05/11/2023 7:22 PM EDT) Pathologist [facility] Glucose UA Negative Negative mg/dL [facility] Protein UA Trace(A) Negative mg/dL [facility] Bilirubin UA Negative Negative mg/dL [facility] Comment: Clinical correlation required for positive Urine Bilirubin results as false positive may occur with some drugs and drug related products. If a false positive is suspected a serum total bilirubin should be considered if clinically indicated. Urobilinogen UA Normal Normal mg/dL [facility] pH UA 5.0 5.0 - 8.0 [facility] Blood UA Trace(A) Negative mg/dL [facility] Ketones UA Negative Negative mg/dL [facility] Nitrite UA Negative Negative [facility] Leukocytes UA Moderate(A) Negative [facility] Appearance UA Cloudy(A) Clear [facility] Spec [place] UA >=1.030(A) 1.005 - 1.030 [facility] Color UA Yellow Yellow [facility] Culture Reflexed Yes [facility] Clean Catch Urine 05/11/2023 7:22 PM EDT 05/11/2023 7:31 PM EDT Narrative Resulting Agency Comment Spec In Lab Brody Kaplan APRN URINE ORDERABLES Performing Organization Address City/[facility]/ZIP Co de Phone Number [facility] [place] [address] * (ABNORMAL) pro-Brain Natriuretic Peptide (05/11/2023 7:11 PM EDT) ProBNP >35,000(H) <=124 pg/mL [facility] Blood 05/11/2023 7:11 PM EDT 05/11/2023 7:26 PM EDT Narrative Resulting Agency Comment Spec In Lab Radha Hollins MD CHEMISTRY ORDERABL ES Performing Organization Address City/[facility]/ZIP Co de Phone Number [facility] [place] [address] * (ABNORMAL) Lactate, whole blood, send to lab ([facility]) (05/11/2023 2:47 PM EDT) Lactate WB 2.9(H) 0.5 - 2.2 mmol/L [facility] Blood 05/11/2023 2:47 PM EDT 05/11/2023 2:53 PM EDT Narrative Resulting Agency Comment Spec In Lab Juan Luis Gonzalez MD CHEMISTRY ORDERABLES [facility] [place] [address] * (ABNORMAL) CT Angiogram Abdomen & Pelvis [...] who have questions please contact the health coronary care unit nurse that requested your imaging first. ? Narrative [...] who have questions please contact the health coronary care unit nurse that requested your imaging first. ? Narrative 05/11/2023 4:37 PM EDT EXAMINATION: CT [...] 610 mm2 Circumference: 88 mm Calcification: Mild Vblilro-ur-hsbpgdyy height: Left: 6.2 mm Right: 5.8 mm THORACIC AORTA Description: Normal course and caliber. ??Mild diffuse atherosclerotic changes. No acute aortopathy noted. Medical Auditor dimensions: Aortic root: 27.6 mm Max ascending aorta: 30.5 mm x 27.7 mm Suggested fluoroscopic angulation based on line extending through the nadirs of the three sinuses of Valsalva, set equidistant: ?? MARCIN ??9 degrees; cranial 7 degrees MITRAL: Mitral [...] 610 mm2 Circumference: 88 mm Calcification: Mild Xepslmp-pk-pfygfjwl height: Left: 6.2 mm Right: 5.8 mm THORACIC AORTA Description: Normal course and caliber. Mild diffuse atheroscleroticchanges. No acute aortopathy noted. Medical Auditor dimensions: Aortic root: 27.6 mm Max ascending aorta: 30.5 mm x 27.7 mm Suggested fluoroscopic angulation based on line extending through thenadirs of the three sinuses of Valsalva, set equidistant: MARCIN 9 degrees; cranial 7 degrees MITRAL: Mitral [...] patients who have questions please contactthe health coronary care unit nurse that requested your imaging first. Antelmo Sharma MD IMG CT ORDERABLES * (ABNORMAL) Lactate, whole blood, send to lab ([facility]) (05/11/2023 9:29 AM EDT) Pathologist [facility] Lactate WB 3.1(H) 0.5 - 2.2 mmol/L [facility] Blood 05/11/2023 9:29 AM EDT 05/11/2023 9:38 AM EDT Narrative Resulting Agency Comment Spec In Lab Juan Luis Gonzalez MD CHEMISTRY ORDERABLES Performing Organization Address City/State/[facility] Co de Phone Number [facility] [place] [phone] * (ABNORMAL) Differential, Automated (05/11/2023 4:42 AM EDT) [facility] Neutrophils % 78.1 % [facility] Neutr Abs (ANC) 5.46 1.70 - 6.10 x10(3)/mc L [facility] Lymphocytes % 10.6 % [facility] Lymphocytes Abs 0.7(L) 0.9 - 3.2 x10(3)/mc L [facility] Monocytes % 9.6 % [facility] Monocyte Abs 0.7 0.3 - 0.9 x10(3)/mc L [facility] Eosinophils % 0.0 % [facility] Eosinophils Abs 0.0 0.0 - 0.4 x10(3)/mc L [facility] Basophils % 0.4 % [facility] Basophils Abs 0.0 0.0 - 0.1 x10(3)/mc L [facility] Immature Gran % 1.30 % [facility] Comment: Immature granulocytes(IG's)percentage and absolute count will include metamyelocytes, myelocytes, and promyelocytes. Blood smears from CBCs yielding IG's will be scanned manually for concordance. If this scan disagrees with the automated IG or if promyelocytes are noted, a manual differential will be performed. Amanda Gran Abs 0.09(H) 0.00 - 0.04 x10(3)/ L [facility] Blood 05/11/2023 4:42 AM EDT 05/11/2023 4:49 AM EDT Narrative Resulting Agency Comment Spec In Lab Klaudia Reid MD HEMATOLOGY OR DERABLES [facility] [place] [address] * (ABNORMAL) Hemogram (05/11/2023 4:42 AM EDT) WBC 7.0 4.0 - 9.5 x10(3)/[facility] RBC 3.44(L) 4.00 - 5.21 x10(6)/[facility] Hemoglobin 11.1(L) 11.7 - 15.5 g/dL [facility] Hematocrit 32.7(L) 35.7 - 45.8 % [facility] MCV 95.1(H) 82.6 - 94.4 fL [facility] MCH 32.3(H) 27.1 - 32.0 pg [facility] MCHC 33.9 31.7 - 35.0 g/dL [facility] Platelets 165 145 - 357 x10(3)/[facility] RDWSD 43.1 37.0 - 46.0 [facility] RDWCV 12.7 11.5 - 14.1 % [facility] MPV 10.1 7.6 - 12.9 [facility] nRBC % Auto 0.0 % [facility] nRBC Abs Auto 0.000 0.000 - 0.000 x10(3)/mcL [facility] Blood 05/11/2023 4:42 AM EDT 05/11/2023 4:49 AM EDT Narrative Resulting Agency Comment Spec In Lab Klaudia Reid MD HEMATOLOGY OR DERABLES Performing Organization Address [facility] Co de Phone Number [facility] [place] [address] * Heparin (unfractionated) Level (05/11/2023 4:42 AM EDT) Heparin UFH Level 0.46 IU/mL [facility] Comment: Heparin (anti-Xa) levels should be [...] MD HEMATOLOGY ORDERAB LES Performing Organization Address [facility] Co de Phone Number [facility] [place] [address] * (ABNORMAL) Comprehensive metabolic panel (non-fasting) (05/11/2023 4:42 AM EDT) Glucose Lvl 143 65 - 199 mg/dL [facility] Comment:Diabetes: >=200 mg/d L plus symptoms BUN 42(H) 8 - 18 mg/dL [facility] Creatinine 1.24(H) 0.70 - 1.20 mg/dL [facility] Sodium 134(L) 135 - 145 mmol/L [facility] Potassium 4.6 3.5 - 5.0 mmol/L [facility] Comment: Please note: ??Patients with WBC >100,000 may have falsely elevated Potassium levels. ??For accurate Potassium quantification in these patients send serum separator tube (gold top) for subsequent determinations. ??Contact the Clinical Chemistry Laboratory if there are any questions. Chloride 99 98 - 107 mmol/L [facility] CO2 14(L) 22 - 31 mmol/L [facility] Anion Gap 21(H) 5 - 15 mmol/L [facility] Calcium 9.6 8.5 - 10.5 mg/dL [facility] Total Protein 7.2 6.1 - 8.0 g/dL [facility] Albumin 3.7 3.2 - 5.2 g/dL [facility] AST 144(H) 0 - 30 unit/L [facility] Comment:result rechecked-ssc ALT 130(H) 0 - 30 unit/L [facility] Comment:result rechecked-ssc Alk Phos 72 35 - 105 unit/L [facility] Total Bilirubin 0.8 0.2 - 1.3 mg/dL [facility] Estimated GFR 48(L) >=60 mL/min/1. 73 m?? [facility] Comment: This patient's estimated [...] MD CHEMISTRY ORDERABL ES Performing Organization Address [facility] Co de Phone Number [facility] [place] [address] * EKG 12 Lead (05/10/2023 1:16 PM EDT) Ventricular rate 118 BPM MUSE SYSTEM Atrial Rate 118 BPM MUSE SYSTEM P-R Interval 152 ms MUSE SYSTEM QRS Duration 104 ms MUSE SYSTEM Q-T Interval 316 ms MUSE SYSTEM QTC Calculated (Bezet) 442 ms MUSE SYSTEM Calculated P [place] 29 degrees MUSE SYSTEM Calculated R [place] 18 degrees MUSE SYSTEM Calculated T [place] -173 degrees MUSE SYSTEM INTERPRETATION Sinus tachycardia [...] Anterior leads Confirmed by MD Villareal Danette ([id number]) on 05/10/2023 8:47:46 PM MUSE SYSTEM 05/10/2023 1:16 PM EDT 05/10/2023 8:47 PM EDT Juan Luis Gonzalez MD ECG ORDERABLES Performing Organization Address [facility] Co de Phone Number MUSE SYSTEM * Lactate, whole blood, send to lab ([facility]) (05/10/2023 11:52 AM EDT) Lactate WB 1.8 0.5 - 2.2 mmol/L [facility] Blood 05/10/2023 11:5 2 AM EDT 05/10/2023 12:13 PM EDT Narrative Resulting Agency Comment Spec In Lab Juan Luis Gonzalez MD CHEMISTRY ORDERABLES [facility] [place] [address] * XR Chest One View (05/10/2023 11:16 [...] who have questions please contact the health coronary care unit nurse that requested your imaging first. ? Narrative 05/10/2023 1:25 PM EDT EXAMINATION: XR [...] patients who have questions please contactthe health coronary care unit nurse that requested your imaging first. Juan Luis Gonzalez MD IMG DX ORDERABLES * EKG 12 Lead (05/10/2023 7:59 AM EDT) Ventricular rate 115 BPM MUSE SYSTEM Atrial Rate 115 BPM MUSE SYSTEM P-R Interval 142 ms MUSE SYSTEM QRS Duration 102 ms MUSE SYSTEM Q-T Interval 322 ms MUSE SYSTEM QTC Calculated (Bezet) 445 ms MUSE SYSTEM Calculated P [place] 36 degrees MUSE SYSTEM Calculated R [place] 28 degrees MUSE SYSTEM Calculated T [place] -119 degrees MUSE SYSTEM INTERPRETATION Sinus tachycardia with frequent Premature ventricular complexes and Fusion complexes ST & T wave abnormality, consider lateral ischemia Abnormal ECG When compared with ECG of 08-MAY-2023 15:51, No significant change was found I personally reviewed the tracing and edited the fellows interpretation Confirmed by fellow MD Anitha, Carissa ([id number]) on 05/11/2023 6:19:54 AM Confirmed by MD Ugalde Hannah ([id number]) on 05/11/2023 3:18:56 PM MUSE SYSTEM 05/10/2023 7:59 AM EDT 05/11/2023 3:18 PM EDT Radha Hollins MD ECG ORDERABLES MUSE SYSTEM * (ABNORMAL) Differential, Automated (05/10/2023 2:28 AM EDT) Neutrophils % 77.1 % [facility] Neutr Abs (ANC) 4.01 1.70 - 6.10 x10(3)/[facility] Lymphocytes % 14.0 % [facility] Lymphocytes Abs 0.7(L) 0.9 - 3.2 x10(3)/[facility] Monocytes % 7.7 % [facility] Monocyte Abs 0.4 0.3 - 0.9 x10(3)/[facility] Eosinophils % 0.4 % [facility] Eosinophils Abs 0.0 0.0 - 0.4 x10(3)/[facility] Basophils % 0.4 % [facility] Basophils Abs 0.0 0.0 - 0.1 x10(3)/[facility] Immature Gran % 0.40 % [facility] Comment: Immature granulocytes(IG's)percentage and absolute count will include metamyelocytes, myelocytes, and promyelocytes. Blood smears from CBCs yielding IG's will be scanned manually for concordance. If this scan disagrees with the automated IG or if promyelocytes are noted, a manual differential will be performed. Amanda Gran Abs 0.02 0.00 - 0.04 x10(3)/[facility] Blood 05/10/2023 2:28 AM EDT 05/10/2023 2:57 AM EDT Narrative Resulting Agency Comment Spec In Lab Klaudia Reid MD HEMATOLOGY OR DERABLES [facility] [place] [address] * (ABNORMAL) Hemogram (05/10/2023 2:28 AM EDT) WBC 5.2 4.0 - 9.5 x10(3)/[facility] RBC 3.11(L) 4.00 - 5.21 x10(6)/[facility] Hemoglobin 10.2(L) 11.7 - 15.5 g/dL [facility] Hematocrit 30.2(L) 35.7 - 45.8 % [facility] MCV 97.1(H) 82.6 - 94.4 fL [facility] MCH 32.8(H) 27.1 - 32.0 pg [facility] MCHC 33.8 31.7 - 35.0 g/dL [facility] Platelets 151 145 - 357 x10(3)/[facility] RDWSD 44.9 37.0 - 46.0 [facility] RDWCV 12.8 11.5 - 14.1 % [facility] MPV 9.8 7.6 - 12.9 [facility] nRBC % Auto 0.0 % [facility] nRBC Abs Auto 0.000 0.000 - 0.000 x10(3)/[facility] Blood 05/10/2023 2:28 AM EDT 05/10/2023 2:57 AM EDT Narrative Resulting Agency Comment Spec In Lab Klaudia Reid MD HEMATOLOGY OR DERABLES Performing Organization Address City/State/[facility] Co de Phone Number [facility] [place] [address] * (ABNORMAL) Comprehensive metabolic panel (non-fasting) (05/10/2023 2:28 AM EDT) Glucose Lvl 100 65 - 199 mg/dL [facility] Comment:Diabetes: >=200 mg/d L plus symptoms BUN 30(H) 8 - 18 mg/dL [facility] Creatinine 0.90 0.70 - 1.20 mg/dL [facility] Sodium 134(L) 135 - 145 mmol/L [facility] Potassium 4.1 3.5 - 5.0 mmol/L [facility] Comment: Please note: ??Patients with WBC >100,000 may have falsely elevated Potassium levels. ??For accurate Potassium quantification in these patients send serum separator tube (gold top) for subsequent determinations. ??Contact the Clinical Chemistry Laboratory if there are any questions. Chloride 102 98 - 107 mmol/L [facility] CO2 20(L) 22 - 31 mmol/L [facility] Anion Gap 12 5 - 15 mmol/L [facility] Calcium 9.3 8.5 - 10.5 mg/dL [facility] Total Protein 6.4 6.1 - 8.0 g/dL [facility] Albumin 3.7 3.2 - 5.2 g/dL [facility] AST 24 0 - 30 unit/L [facility] ALT 14 0 - 30 unit/L [facility] Alk Phos 70 35 - 105 unit/L [facility] Total Bilirubin 0.5 0.2 - 1.3 mg/dL [facility] Estimated GFR 70 >=60 mL/min/1. 73 m?? [facility] Comment: This patient's estimated [...] Lab Radha Hollins MD CHEMISTRY ORDERABL ES [facility] [place] [address] * Heparin (unfractionated) Level (05/10/2023 2:28 AM EDT) [facility] Heparin UFH Level 0.37 IU/mL [facility] Comment: Heparin (anti-Xa) levels should be [...] Lab Radha Hollins MD HEMATOLOGY ORDERAB LES [facility] [place] [address] * (ABNORMAL) Differential, Automated (05/09/2023 4:00 AM EDT) [facility] Neutrophils % 81.7 % [facility] Neutr Abs (ANC) 5.26 1.70 - 6.10 x10(3)/mc L [facility] Lymphocytes % 10.7 % [facility] Lymphocytes Abs 0.7(L) 0.9 - 3.2 x10(3)/mc L [facility] Monocytes % 6.5 % [facility] Monocyte Abs 0.4 0.3 - 0.9 x10(3)/mc L [facility] Eosinophils % 0.5 % [facility] Eosinophils Abs 0.0 0.0 - 0.4 x10(3)/mc L [facility] Basophils % 0.3 % [facility] Basophils Abs 0.0 0.0 - 0.1 x10(3)/[facility] Immature Gran % 0.30 % [facility] Comment: Immature granulocytes(IG's)percentage and absolute count will include metamyelocytes, myelocytes, and promyelocytes. Blood smears from CBCs yielding IG's will be scanned manually for concordance. If this scan disagrees with the automated IG or if promyelocytes are noted, a manual differential will be performed. Amanda Gran Abs 0.02 0.00 - 0.04 x10(3)/[facility] Blood 05/09/2023 4:00 AM EDT 05/09/2023 4:19 AM EDT Narrative Resulting Agency Comment Spec In Lab Klaudia Reid MD HEMATOLOGY OR DERABLES Performing Organization Address City/State/[facility] Co de Phone Number [facility] [place] [address] * (ABNORMAL) Hemogram (05/09/2023 4:00 AM EDT) WBC 6.4 4.0 - 9.5 x10(3)/[facility] RBC 3.15(L) 4.00 - 5.21 x10(6)/[facility] Hemoglobin 10.2(L) 11.7 - 15.5 g/dL [facility] Hematocrit 30.3(L) 35.7 - 45.8 % [facility] MCV 96.2(H) 82.6 - 94.4 fL [facility] MCH 32.4(H) 27.1 - 32.0 pg [facility] MCHC 33.7 31.7 - 35.0 g/dL [facility] Platelets 151 145 - 357 x10(3)/[facility] RDWSD 44.7 37.0 - 46.0 fL [facility] RDWCV 12.8 11.5 - 14.1 % [facility] MPV 9.4 7.6 - 12.9 fL [facility] nRBC % Auto 0.0 % [facility] nRBC Abs Auto 0.000 0.000 - 0.000 x10(3)/mcL [facility] Blood 05/09/2023 4:00 AM EDT 05/09/2023 4:19 AM EDT Narrative Resulting Agency Comment Spec In Lab Klaudia Reid MD HEMATOLOGY OR DERABLES Performing Organization Address [facility]/[place] [address] * Heparin (unfractionated) Level (05/09/2023 4:00 AM EDT) Heparin UFH Level 0.47 IU/mL [facility] Comment: Heparin (anti-Xa) levels should be [...] MD HEMATOLOGY ORDERAB LES Performing Organization Address [facility]/ZIP Co de Phone Number [facility] [place] [address] * (ABNORMAL) Comprehensive metabolic panel (non-fasting) (05/09/2023 4:00 AM EDT) Glucose Lvl 108 65 - 199 mg/dL [facility] Comment:Diabetes: >=200 mg/d L plus symptoms BUN 31(H) 8 - 18 mg/dL [facility] Creatinine 1.03 0.70 - 1.20 mg/dL [facility] Sodium 137 135 - 145 mmol/L [facility] Potassium 4.4 3.5 - 5.0 mmol/L [facility] Comment: Please note: ??Patients with WBC >100,000 may have falsely elevated Potassium levels. ??For accurate Potassium quantification in these patients send serum separator tube (gold top) for subsequent determinations. ??Contact the Clinical Chemistry Laboratory if there are any questions. Chloride 102 98 - 107 mmol/L [facility] CO2 20(L) 22 - 31 mmol/L [facility] Anion Gap 15 5 - 15 mmol/L [facility] Calcium 9.3 8.5 - 10.5 mg/dL [facility] Total Protein 6.6 6.1 - 8.0 g/dL [facility] Albumin 3.8 3.2 - 5.2 g/dL [facility] AST 32(H) 0 - 30 unit/L [facility] ALT 18 0 - 30 unit/L [facility] Alk Phos 78 35 - 105 unit/L [facility] Total Bilirubin 0.5 0.2 - 1.3 mg/dL [facility] Estimated GFR 60 >=60 mL/min/1. 73 m?? [facility] Comment: This patient's estimated [...] MD CHEMISTRY ORDERABL ES Performing Organization Address City/[facility]/ZIP Co de Phone Number [facility] [place] [address] * (ABNORMAL) pro-Brain Natriuretic Peptide (05/08/2023 4:00 PM EDT) ProBNP 25,503(H) <=124 pg/mL [facility] Blood Venous Draw / Unknown 05/08/2023 4:00 PM EDT 05/08/2023 4:25 PM EDT Narrative Resulting Agency Comment Spec In Lab Juan Luis Gonzalez MD CHEMISTRY ORDERABLES Performing Organization Address City/[facility]/ZIP Co de Phone Number [facility] [place] [address] * Magnesium (05/08/2023 4:00 PM EDT) Magnesium 0.82 0.69 - 1.07 mmol/L [facility] Blood 05/08/2023 4:00 PM EDT 05/08/2023 4:06 PM EDT Narrative Resulting Agency Comment Spec In Lab Enrique Chua MD CHEMISTRY ORDERABLES Performing Organization Address City/[facility]/ZIP Co de Phone Number [facility] [place] [address] * Potassium (05/08/2023 4:00 PM EDT) Potassium 3.9 3.5 - 5.0 mmol/L [facility] Comment: Please note: ??Patients [...] MD CHEMISTRY ORDERABL ES Performing Organization Address [facility] Co de Phone Number [facility] [place] [address] * Heparin (unfractionated) Level (05/08/2023 4:00 PM EDT) Pathologist [facility] Heparin UFH Level 0.43 IU/mL [facility] Comment: Heparin (anti-Xa) levels should be [...] MD HEMATOLOGY ORDERAB LES Performing Organization Address [facility]/ZIP Co de Phone Number [facility] [place] [address] * EKG 12 Lead (05/08/2023 3:51 PM EDT) Ventricular rate 98 BPM MUSE SYSTEM Atrial Rate 98 BPM MUSE SYSTEM P-R Interval 150 ms MUSE SYSTEM QRS Duration 102 ms MUSE SYSTEM Q-T Interval 358 ms MUSE SYSTEM QTC Calculated (Bezet) 457 ms MUSE SYSTEM Calculated P [place] 38 degrees MUSE SYSTEM Calculated R [place] 48 degrees MUSE SYSTEM Calculated T [place] -112 degrees MUSE SYSTEM INTERPRETATION Sinus rhythm with frequent and consecutive Premature ventricular and fusion complexes Septal infarct , age undetermined ST & T wave abnormality, consider anterolateral ischemia Abnormal ECG When compared with ECG of 09-NOV-2022 11:17, T wave inversion now evident in Anterolateral leads Confirmed by MD Harshil, Enrique Bell ([id number]) on 05/10/2023 8:11:46 AM MUSE SYSTEM 05/08/2023 3:51 PM EDT 05/10/2023 8:11 AM EDT Radha Hollins MD ECG ORDERABLES MUSE SYSTEM * (ABNORMAL) Differential, Automated (05/08/2023 11:38 AM EDT) Neutrophils % 71.3 % [facility] Neutr Abs (ANC) 2.91 1.70 - 6.10 x10(3)/mc L [facility] Lymphocytes % 19.1 % [facility] Lymphocytes Abs 0.8(L) 0.9 - 3.2 x10(3)/mc L [facility] Monocytes % 9.0 % [facility] Monocyte Abs 0.4 0.3 - 0.9 x10(3)/mc L [facility] Eosinophils % 0.2 % [facility] Eosinophils Abs 0.0 0.0 - 0.4 x10(3)/mc L [facility] Basophils % 0.2 % [facility] Basophils Abs 0.0 0.0 - 0.1 x10(3)/mc L [facility] Immature Gran % 0.20 % [facility] Comment: Immature granulocytes(IG's)percentage and absolute count will include metamyelocytes, myelocytes, and promyelocytes. Blood smears from CBCs yielding IG's will be scanned manually for concordance. If this scan disagrees with the automated IG or if promyelocytes are noted, a manual differential will be performed. Amanda Gran Abs 0.01 0.00 - 0.04 x10(3)/mc L [facility] Blood 05/08/2023 11:3 8 AM EDT 05/08/2023 11:44 AM EDT Narrative Resulting Agency Comment Spec In Lab Lincoln Sal MD HEMATOLOGY ORDERA BLES [facility] [place] [address] * (ABNORMAL) Hemogram (05/08/2023 11:38 AM EDT) WBC 4.1 4.0 - 9.5 x10(3)/[facility] RBC 3.05(L) 4.00 - 5.21 x10(6)/[facility] Hemoglobin 10.2(L) 11.7 - 15.5 g/dL [facility] Hematocrit 29.6(L) 35.7 - 45.8 % [facility] MCV 97.0(H) 82.6 - 94.4 fL [facility] MCH 33.4(H) 27.1 - 32.0 pg [facility] MCHC 34.5 31.7 - 35.0 g/dL [facility] Platelets 136(L) 145 - 357 x10(3)/[facility] RDWSD 44.3 37.0 - 46.0 [facility] RDWCV 12.6 11.5 - 14.1 % [facility] MPV 9.4 7.6 - 12.9 [facility] nRBC % Auto 0.0 % [facility] nRBC Abs Auto 0.000 0.000 - 0.000 x10(3)/[facility] Blood 05/08/2023 11:3 8 AM EDT 05/08/2023 11:44 AM EDT Narrative Resulting Agency Comment Spec In Lab Lincoln Sal MD HEMATOLOGY ORDERA BLES Performing Organization Address [facility] Co de Phone Number [facility] [place] [address] * TSH (05/08/2023 11:38 AM EDT) TSH 1.27 0.27 - 4.20 mcIU/mL [facility] Comment: Reference Interval (mcIU/mL): Females: ??First Trimester: 0.23-3.88 ??Second Trimester: 0.22-3.90 ??Third Trimester: 0.44-4.66 Blood 05/08/2023 11:3 8 AM EDT 05/08/2023 11:44 AM EDT Narrative Resulting Agency Comment Spec In Lab Enrique Chua MD CHEMISTRY ORDERABLES Performing Organization Address [facility] de Phone Number [facility] [place] [address] * (ABNORMAL) Phosphorus (05/08/2023 11:38 AM EDT) Phosphorus 4.7(H) 2.5 - 4.5 mg/dL [facility] Blood 05/08/2023 11:3 8 AM EDT 05/08/2023 11:44 AM EDT Narrative Resulting Agency Comment Spec In Lab Enrique Chua MD CHEMISTRY ORDERABLES Performing Organization Address [facility] Co de Phone Number [facility] [place] [address] * Magnesium (05/08/2023 11:38 AM EDT) Magnesium 0.76 0.69 - 1.07 mmol/L [facility] Blood 05/08/2023 11:3 8 AM EDT 05/08/2023 11:44 AM EDT Narrative Resulting Agency Comment Spec In Lab Enrique Chua MD CHEMISTRY ORDERABLES [facility] [place] [address] * (ABNORMAL) Basic Metabolic Panel (non-fasting) (05/08/2023 11:38 AM EDT) Glucose Lvl 97 65 - 199 mg/dL [facility] Comment:Diabetes: >=200 mg/d L plus symptoms BUN 27(H) 8 - 18 mg/dL [facility] Creatinine 1.02 0.70 - 1.20 mg/dL [facility] Sodium 139 135 - 145 mmol/L [facility] Potassium 4.2 3.5 - 5.0 mmol/L [facility] Comment: Please note: ??Patients with WBC >100,000 may have falsely elevated Potassium levels. ??For accurate Potassium quantification in these patients send serum separator tube (gold top) for subsequent determinations. ??Contact the Clinical Chemistry Laboratory if there are any questions. Chloride 105 98 - 107 mmol/L [facility] CO2 20(L) 22 - 31 mmol/L [facility] Anion Gap 14 5 - 15 mmol/L [facility] Calcium 9.4 8.5 - 10.5 mg/dL [facility] Estimated GFR 60 >=60 mL/min/1. 73 m?? [facility] Comment: This patient's estimated [...] In Lab Enrique Chua MD CHEMISTRY ORDERABLES [facility] [place] [address] * ECHO COMPLETE (05/08/2023 11:02 AM EDT) EF 25 HEARTLAB SYSTEM Anatomical Region Laterality Modality Cardiac Other 05/08/2023 10:0 3 AM EDT Narrative 05/08/2023 11:51 AM EDT ? Echocardiogram Report Name: PURNIMA THACKER ?Study Date: 05/08/2023 10:03 AMBP: 92/64 mmHg ? Patient Location: [facility]^CV29^A : 1955 ? Height: 155 cm ? Account: [id number] Age: 67 yrs ? Weight: 78 kg Gender: Female ?BSA: 1.8 m2 Ordering Physician: ENRIQUE CHUA Referring Physician: MARIO ALBERTO CHIN Performed By: CHUCKIE Canchola Reason For Study: SAVR Stenosis Exam Location: [facility]. Interpretation Summary -Left ventricle is severely [...] worsening stenosis. Mitral regurgitation is similar. Procedure Complete-[id number]. Satisfactory quality. There is normal sinus rhythm. [...] Chua MD - 05/08/2023 Echocardiogram Report Name: LASHELL THACKEROUISE Magalie Study Date: 0:03 AMBP: 92/64 mmHg Patient Location:[facility]^CV29^A : 1955 Height: 155 cm Account: [id number] Age: 67 yrs Weight: 78 kg Gender: Female BSA: 1.8 m2 Ordering Physician: ENRIQUE CHUA Referring Physician: MARIO ALBERTO CHIN Performed By: CHUCKIE Canchola Reason For Study: SAVR Stenosis Exam Location: [facility]. Interpretation Summary -Left ventricle is severely [...] suggestsworsening stenosis. Mitral regurgitation is similar. Procedure Complete-[id number]. Satisfactory quality. There is normal sinus rhythm. 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 Mild coronary artery disease by [facility] 11/09/2022 Mixed connective tissue disease Other [...] ejection fraction Mild coronary artery disease by [facility] 11/09/2022 Stenosis of prosthetic aortic valve [...] Given 05/20/2023 5:58 PM EDT 650 mg aspirin chewable tablet 81 mg 81 mg, Oral, DAILY, First dose on Marquita 05/13/23 at 0900, Until Discontinued, Routine Given 05/22/2023 8:27 AM EDT 81 mg Given 05/21/2023 8:32 AM EDT 81 mg Given 05/20/2023 8:36 AM EDT 81 mg aspirin chewable tablet PRN, Starting on Wed05/12/23 at 0853, Until Wed05/12/23 at 0856, Intra-Operative (Intra-Procedure), Routine Given 05/12/2023 8:53 AM EDT 81 mg atorvastatin (Lipitor) tablet 10 mg 10 mg, Oral, EVERY EVENING, First dose on 05/17/23 at 1700, Until Discontinued, Routine Given 05/21/2023 4:1 9 PM EDT 10 mg Given 05/20/2023 5:38 PM EDT 10 mg Given 05/19/2023 4:15 PM EDT 10 mg furosemide (Lasix) tablet 20 mg 20 mg, Oral, DAILY, First dose on Wed05/19/23 at 1715, Until Discontinued, Routine Given 05/22/2023 8:27 AM EDT 20 mg Given 05/21/2023 8:32 AM EDT 20 mg Given 05/20/2023 8:36 AM EDT 20 mg HYDROmorphone (Dilaudid) (0.5 mg/0.5 mL) injection syringe 0.2 mg 0.2 mg, Intravenous, EVERY 4 HOURS PRN, Starting on Wed05/18/23 at 1939, Until 05/22/23 at 1246, Pain, Please give if oxycodone 5mg is not effective, Routine Given 05/18/2023 8:32 PM EDT 0.2 mg iohexoL (Omnipaque) (350 mg/mL) solution PRN, Starting on Wed05/12/23 at 0849, Until Wed05/12/23 at 0856, Intra-Operative (Intra-Procedure), Routine Given 05/12/2023 8:49 AM EDT 90 mLs lidocaine (Lidoderm) 5% patch 1 patch [...] AM EDT 1 patch 13- Abdomen (Left) melatonin tablet 6 mg 6 mg, Oral, NIGHTLY PRN, Starting on Wed05/12/23 at 0944, Until 05/22/23 at 1246, insomnia, Routine Given 05/20/2023 12:25 AM EDT 6 mg Given 05/18/2023 8:31 PM EDT 6 mg Given 05/17/2023 8:25 PM EDT 6 mg metoproloL tartrate (Lopressor) tablet 25 mg 25 mg, Oral, EVERY 12 HOURS SCHEDULED (2 times per day), First dose (after last modification) on Wed05/17/23 at 2100, Until Discontinued, Routine Given 05/22/2023 8:27 AM EDT 25 mg Given 05/21/2023 8:13 PM EDT 25 mg Given 05/21/2023 8:32 AM EDT 25 mg ondansetron (pf) (Zofran) (2 mg/mL) injection 4 mg 4 mg, Intravenous, EVERY 8 HOURS PRN, Starting on Wed05/12/23 at 0944, Until 05/22/23 at 1246, Nausea, Routine Given 05/18/2023 8:31 PM EDT 4 mg Given 05/12/2023 7:36 AM EDT 4 mg oxyCODONE (Roxicodone) tablet 5 mg 5 mg, Oral, EVERY 3 HOURS PRN, Starting on Wed05/16/23 at 1145, Until 05/22/23 at 1246, Pain, [...] Given 05/17/2023 8:20 AM EDT 17 g senna-docusate (Pericolace) 8.6-50 mg per tablet 2 tablet 2 tablet, Oral, DAILY, First dose on Marquita 05/13/23 at 2100, Until Discontinued, Post-op day 1, Routine Given 05/19/2023 9:03 PM EDT 2 tablets Given 05/16/2023 9:12 PM EDT 2 tablets Given 05/15/2023 8:08 PM EDT 2 tablets sodium chloride 0.9 % (flush) (BD PosiFlush [...] Given 05/22/2023 6:15 AM EDT 5 mLs ticagrelor (Brilinta) tablet 90 mg 90 mg, [...] Given 05/21/2023 8:32 AM EDT 90 mg ticagrelor (Brilinta) tablet PRN, Starting on Wed05/12/23 at 0852, Until Wed05/12/23 at 0856, Intra-Operative (Intra-Procedure), Routine Given 05/12/2023 8:52 AM EDT 180 mg documented in this encounter Active and [...] Until Discontinued, Routine 0836 (Given - Provider: Gabion Calhoun RN) 0832 (Given - Provider: Kia [...] Gallego RN)2349 (Patch Removed - Provider: Favian Mckeon RN) magnesium sulfate [...] Minutes 0615 (New Bag - Provider: Favian Mckeon RN)0815 (Stopped - Provider: Kia Gallego RN) metoproloL tartrate (Lopressor) tablet 25 mg 25 mg, Oral, EVERY 12 HOURS SCHEDULED (2 times per day), First dose (after last modification) on 05/17/23 at 2100, Until Discontinued, Routine 0836 (Given - Provider: Gabino Calhoun RN)2054 (Given - Provider: Favian Mckeon RN) 0832 (Given - Provider: Kia Gallego, VALDO)2012 (Given - Provider: Favian Mckeon, VALDO) 0827 (Given - Provider: Kia Gallego RN) [...] RN) 0832 (See Alternative - Provider: Kia Gallego, VALDO) 0827 (See Alternative - Provider: Kia Gallego RN) pantoprazole EC (Protonix) tablet 40 mg(Linked Group 2) 40 mg, Oral, DAILY, First dose on Wed05/12/23 at 1030, Until Discontinued, DO NOT CRUSH OR OPEN, Routine 0836 (Given - Provider: Annalina G Christen, RN) 0832 (Given - Provider: Kia Gallego RN) 0827 (Given - Provider: Kia Gallego RN) polyethylene glycoL (Miralax) packet 17 g 17 [...] Mckeon RN) 0833 (Given - Provider: Kia Gallego RN)2012 (Given - Provider: Favian Mckeon RN) 0828 [...] patient on 81 mg of aspirin? Yes 0836 (Given - Provider: Gabino Calhoun, VALDO)2053 (Given - Provider: Favian Mckeon, VALDO) 0832 [...] other ordered pain medications are indicated., Routine 175 (Given - Provider: Gabino Calhoun RN)2344 (Given - Provider: Petros Valiente RN) bisacodyL (Dulcolax) suppository 10 mg 10 [...] Intravenous, EVERY 8 HOURS PRN, Starting on 05/12/23 at 0944, Until 05/22/23 at 1246, Nausea, [...] post-op day 1 in the AM Give CO if unable to take PO, Routine Group [...] Routine documented in this encounter Care Teams Automotive Upholsterer Relationship Specialty Start Date End Date Magdalena Acosta MD [address] [place] [address] PCP - General Family Medicine 02/05/23 documented as of this encounter
--- OUTSIDE RECORDS SUMMARY | 2024-02-15 14:08 | XMS_ITS | Encounter Summary ---
[facility] [place] [address] Care Team Providers Care Biblical Languages Professor Name Role Phone Magdalena Acosta MD Primary Care Provider [phone] Encounter Details Date Type Department Care Team (Latest Contact Info) Description 03/13/2023 Travel Social History Tobacco Use Types Packs/Day [...] 4:15 PM EDT Office Visit Dermatology at [address] [address] Marek Bonilla MD [address] [place] [address] [place] [address] 06/05/2024 11:30 AM EST Office [place] [address] Magdalena Peralta MD [facility] [place] [address] documented as of this encounter Visit Diagnoses Not on filedocumented in this encounter Care Teams Biblical Languages Professor Relationship Specialty Start Date End Date Magdalena Acosta MD [address] [place] [address] PCP - General Family Medicine 02/05/23 documented as of this encounter
--- OUTSIDE RECORDS SUMMARY | 2024-02-15 14:08 | XMS_ITS | Encounter Summary ---
Author Organization [facility] Address [facility] [place] [address] Care Team Providers Care Proof Coins Inspector Name Role Phone Magdalena Acosta MD Primary Care Provider [phone] Encounter Details Date Type Department Care Team (Late st Contact Info) Description 02/17/2023 2:00 PM EDT Office [place] [address] Alirio Esparza MD [facility] [place] [address] Aortic valve stenosis, etiology of cardiac valve [...] Sign Reading Time Taken Comments Blood Pressure 114/57 02/17/2023 2:19 PM EDT Pulse 83 02/17/2023 2:19 PM EDT Temperature - - Respiratory Rate - - Oxygen Saturation 100% 02/17/2023 2:19 PM EDT Inhaled Oxygen Concentration - - Weight 79.8 kg (176 lb) 02/17/2023 2:19 PM EDT Height 154.9 cm (5' 1) 02/17/2023 2:19 PM EDT Body Mass Index 33.25 02/17/2023 2:19 PM EDT documented in this encounter Progress Notes * Alirio Esparza MD - 02/17/2023 2:00 PM EDT Pt is s/p AVR about 8 years ago Now with increasing thapa Afeb vss Wound cdi Sternum stable Echo with increased gradients- see emr for full report Increasing thapa with prosthetic valve Plan: TAVR valve in valve Will need CT and cath documented in this encounter Plan of Treatment Upcoming Encounters Date Type Department Care Team (Late st Contact Info) Description 02/22/2024 4:15 PM EDT Office Visit Dermatology at [place] [address] [place] [facility] [place] [phone] Marek Bonilla MD [address] [facility] [place] [address] 06/05/2024 11:30 AM EST Office [place] [address] Magdalena Peralta MD [facility] [place] [address] documented as of this encounter Visit Diagnoses Diagnosis Aortic valve stenosis, etiology of cardiac valve disease unspecified documented in this encounter Care Teams Proof Coins Inspector Relationship Specialty Start Date End Date Magdalena Acosta MD [address] [place] [address] PCP - General Family Medicine 02/05/23 documented as of this encounter
--- OUTSIDE RECORDS SUMMARY | 2024-02-15 14:08 | XMS_ITS | Encounter Summary ---
Author Organization [place] [address] Care Team Providers Care Decal Decorator Name Role Phone Magdalena Acosta MD Primary Care Provider [phone] Encounter Details Date Type Department Care Team (Late st Contact Info) Description 05/08/2023 [place] [phone] Luis Felipe Ott MD [facility] [address] Social History Tobacco Use Types Packs/Day Years [...] encounter Miscellaneous Notes * Telephone Encounter - Luis Felipe Ott MD - 05/08/2023 4:35 AM EDT Telephone Triage Note Initial Contact Date: 05/08/23 Initial Contact Time: 0426 Referring Provider: Nitesh Baltazar Patient Location: [facility] Presenting Symptoms per OSH: 67 year old female, history of bioprosthetic AVR (2017) with recent concern for severe , presenting with worsening dyspnea on exertion with unintentional weight gain of 4-5 pounds over a few days. Also endorses intermittent retrosternal chest pain with exertion, orthopnea, and PND, but no lower ex tremity edema. Afebrile, BP 105/64 -> 89/59 after diuresis with IV furosemide 20 x 1 ([id number]/47 at rheumatology appointment), SpO2 85% on RA -> 95% on 2L NC, HR 120s. Examination significant for decreased breath sounds at the bases. Pertinent Diagnostic Findings: CBC - Hgb 10.5 CMP - Cr 1.1 BNP 38322 HsTrop 1358 Lactate 1.6 D-dimer 1183, CTPE pending CXR demonstrated pulmonary vascular congestion US showed bilateral b lines Bedside echo reportedly similar to prior TTE for LV function OSH Interventions: ASA 324 Heparin gtt Plan: Transfer to [facility] Above recommendations/plans are based on my conversation with the referring provider. I have not personally interviewed or examined this patient. Luis Felipe Ott MD Outpatient Therapist Received a call from provider emergently at 715am. Mentating well and BP 87/53. HR 108 and diursingwell. They were about to start phenylephrine which I stressed was not a good option given concern for severe and increasing afterload. She is warm on exam, mentating and urinating and we do not need to amrit a BP if those things remain stable. Nico Segura, PGY-6 Outpatient Therapist [id number] documented in this encounter Plan of Treatment Upcoming Encounters Date Type Department Care Team (Late st Contact Info) Description 02/22/2024 4:15 PM EDT Office Visit Dermatology at [place] [address] [place] [phone] Marek Bonilla MD [address] [place] [address] 06/05/2024 11:30 AM EST [place] [address] Magdalena Peralta MD [facility] [place] [address] documented as of this encounter Visit Diagnoses Not on filedocumented in this encounter Care Teams Decal Decorator Relationship Specialty Start Date End Date Magdalena Acosta MD [address] [place] [address] PCP - General Family Medicine 02/05/23 documented as of this encounter
--- OUTSIDE RECORDS SUMMARY | 2024-02-15 14:08 | XMS_ITS | Encounter Summary ---
[place] [address] Care Team Providers Care Network Professional Name Role Phone Magdalena Acosta MD Primary Care Provider [phone] Reason for Visit * Reason Comments Suture / Staple Removal Encounter Details Date Type Department Care Team (Late st Contact Info) Description 02/16/2023 10:00 AM EDT Office Visit Dermatology at [address] [phone] Marek Bonilla MD [address] [facility] DERMATOLOGY [place], [place] [phone] Visit for suture removal Social History Tobacco Use Types Packs/Day Years [...] Progress Notes * Marek Bonilla MD - 02/16/2023 10:00 AM EDT Problem: Follow-up for suture removal and biopsy results Purnima follows up but the biopsy came back showing a moderately atypical nevus.. She had no problems with the biopsy site. Physical examination reveals a pleasant 67-year-old woman who has excellent healing of the 4 mm punch biopsy site. Assessment plan: Punch biopsy proven mild moderately atypical nevus 1. Suture removed 2. No treatment necessary 3. Return to clinic as needed. C: Magdalena Acosta MD documented in this encounter Plan of Treatment Upcoming Encounters Date Type Department Care Team (Late st Contact Info) Description 02/22/2024 4:15 PM EDT Office Visit Dermatology at [place] [address] [place] [address] Marek Bonilla MD [address] [place] [address] 06/05/2024 11:30 AM EST Office [place] [address] Magdalena Peralta MD [facility] [address] [place] [address] documented as of this encounter Visit Diagnoses Diagnosis Visit for suture removal Encounter for removal of sutures documented in this encounter Care Teams Network Professional Relationship Specialty Start Date End Date Magdalena Acosta MD [address] [place] [address] PCP - General Family Medicine 02/05/23 documented as of this encounter
--- OUTSIDE RECORDS SUMMARY | 2024-02-15 14:08 | XMS_ITS | Encounter Summary ---
Author Organization [facility] Address [facility] [place] [address] Care Team Providers Care Process Architect Name Role Phone Deborah Quiroga APRN Primary Care Provider [phone] Reason for Visit * Reason Comments Follow-up Encounter Details Date Type Department Care Team (Late st Contact Info) Description 07/03/2022 1:30 PM EST Office Visit Hematology and Oncology at [facility] [place] [address] Markel Borjas MD [facility] [place] [address] Consuelo Sommer APRN [facility] [address] HEMATOLOGY [place] [address] Chronic idiopathic neutropenia; Dysuria Social History Tobacco Use Types Packs/Day Years [...] Sign Reading Time Taken Comments Blood Pressure 133/70 07/03/2022 1:01 PM EST Pulse 83 07/03/2022 1:01 PM EST Temperature 36.2 ??C (97.2 ??F) 07/03/2022 1:01 PM ES T Respiratory Rate 18 07/03/2022 1:01 PM EST Oxygen Saturation 98% 07/03/2022 1:01 PM EST Inhaled Oxygen Concentration - - Weight 86 kg (189 lb 9.5 oz) 07/03/2022 1:01 PM EST Height 156 cm (5' 1.42) 07/03/2022 1:01 PM EST Body Mass Index 35.34 07/03/2022 1:01 PM EST documented in this encounter Progress Notes * Markel Borjas MD - 07/03/2022 1:30 PM EST Hematology Outpatient Clinic [facility] Hematology Outpatient Consult Note CC: 60 year old woman with h/o worsening due for upcoming CT Surgery referred for work-up of incidentally found leukopenia with neutropenia on pre-op assessment. The patient comes to clinic alone.Available medical records were reviewed. HPI (original): Purnima is a 60-year-old woman referred by Dr. Esparza for further assessment of leukopenia and neutropenia prior to impending aortic valve replacement surgery. She has been followedby CT Surgery (Dr. Esparza) and Cardiology (Dr. Escobedo) over the past few months with severe , noting symptoms of fatigue and dyspnea on exertion (gradual onset), without apparent chest pain or presyncopal symptoms. No emergency room visits or hospitalizations related to this issue, though she does report a gradual decline from her baseline functional status. ?? She specifically denies any dramatic change from her baseline state of health, including fevers, drenching night sweats, weight loss, lymphadenopathy, early satiety, bone pain, bleeding or easy bruising. In the context of her neutropenia she denies any history of recurrent bacterial infections or the recent onset of any new focal infectious symptoms. She does acknowledge occasional tenesmus and hematechezia, without associated melena, abdominal pain, reflux, anorexia, nausea or vomiting. No family history of infections or leukemias. Pt not aware that any siblings have neutropenia. Per review of the record, the patient has manifested a gradually progressive leukopenia with associated neutropenia over the past 2-3 years, as outlined below Work Up Labs ?? Mar 2013: WBC 2.27 AMC 1.09 ALC 0.86 ?? December 2013: WBC 2.11 ?? 07/2016- ANC= 0.48 ?? 08/04/16- ANC= 1.17 (after test dose of neulasta) ?? 09/24/16- ANC= 7.79 (POD 2 after aortic valve repair and 8 days after neulasta) ?? 11/2016- ANC= 0.5 (after stopping ASHLEIGH-I for 3 months) ?? 06/18- ANC= 0.66 Imaging ?? CT c/a/p (06/2016)- no lymphadenopathy or masses- essentially normal Pathology ?? DIAGNOSIS BONE MARROW (PERIPHERAL SMEAR, ASPIRATE SMEAR, TOUCH PREP, CLOT SECTION, CORE ??BIOPSY); [OSR# [id number], COLLECTED 06/23/2016, 19 SLIDES]: ?1. ??Normocellular marrow (30-40% cellularity) with complete multilineage hematopoiesis ?2. ??Few benign lymphoid aggregates are seen, but no abnormal lymphoproliferation or significant features of dysplasia are appreciated; supported by immunophenotyping studies ?3. ??Iron stores are adequate per iron stains ?4. ??Peripheral blood with leukopenia ?5. ??Per report from the referring institution; Flow cytometry studies on the marrow aspirate did not show immunophenotypic evidence for involvement by a clonal lymphoproliferative or myeloproliferative disorder (OSR# [id number]) Chromosome analysis on the marrow aspirate revealed a normal female karyotype; ?? 46,XX ?? PB Flow- DIAGNOSIS 1. No increased or abnormal immunophenotype T/NK/LGL or monoclonal B-cell ??populations identified. 2. No increased blast population present (see Discussion). INTERIM HISTORY Pt here for follow up at the urging of her PCP, who is undergoing a broad work up for malaise and diffuse pains affecting her joints. She feels poorly. She has been losing signifcant weight due to not eating much, because she doesn'tfeel well. She has even given up playing scrabble, and other activities which she has enjoyed doingin the past. Past Medical/Surgical History: 1. Leukopenia -element of neutropenia, as noted above 2. Aortic Stenosis -severe -AVR surgery 3. Hypercholesterolemia 4. 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 dilTIAZem CD (Cardizem CD) 180 mg Capsule, Sust. Release 24 hr Take 180 mg by mouth daily. Yes OneTouch Verio test strips Strip USE DAILY Yes OneTouch Delica Plus Lancet 33 gauge Misc USE DAILY Yes metroNIDAZOLE (METROGEL) 0.75 % Gel Apply every other day after washing as needed. Yes doxycycline (VIBRAMYCIN) 50 mg Capsule Take one capsule by mouth daily in the evening. Patient taking differently: daily. Yes amoxicillin (AMOXIL) 500 mg Tablet Take 2,000 mg by mouth once as needed. Before dental Yes losartan (Cozaar) 25 mg Tablet Take 25 mg by mouth daily. Yes acetaminophen (TYLENOL) 500 mg Tablet Take 2 tablets by mouth every 6 hours as needed for Pain (Please take up to 1,000 mg every 6 hours when experiencing pain -05/11.). Yes spironolactone (ALDACTONE) 25 mg Tablet Take 0.5 tablets by mouth daily. Yes multivitamin (THERAGRAN) Tablet Take 1 tablet by mouth daily. Yes atorvastatin (LIPITOR) 10 mg Tablet Take 10 mg by mouth daily. Yes aspirin 81 mg EC tablet Take 81 mg by mouth daily. Yes metoprolol succinate XL (Toprol-XL) 50 mg Tablet Sustained Release 24 hr Take 75 mg by mouth daily. meTOPROLOL tartrate (LOPRESSOR) 25 mg Tablet Take 25 mg by mouth 2 times daily. Allergies: Reviewed in eD-H Review of Systems Besides what is mentioned in HPI, all other systems are negative Physical Exam: Patient Vitals for the past 24 hrs: Temp Pulse Resp BP SpO2 07/03/22 1301 36.2 ??C (97.2 ??F) 83 18 133/70 98 % Gen: Well-appearing woman, conversant and in no acute distress. HEENT: Sclerae anicteric; no oropharyngeal lesions. Neck: Supple; no palpable thyromegaly. Lungs: Clear to auscultation. Cardiovascular: Normal rate and regular rhythm; grade III/ HS murmur. Abd: Benign, without palpable hepatosplenomegaly. Lymphatics: No palpable lymphadenopathy. Skin: No jaundice, rash, ecchymoses or petechiae. Neuro: Grossly intact. Extremities: No edema. Labs: Hgb= 11.7 Klfr=805 ANC= 2.5 Imaging As above - reviewed CT scan HematoPathology: As above- personally reviewed bone marrow Assessment: 60 year-old woman found to have severe neutropenia during preop evaluation. She has no history of infections. Her work up has been negative for an explanation (BM, CT scan, peripheral blood flow). Interestingly, she mounted a neutrophil response (8000) after surgery and 8 days after receiving neulasta. Ms Thacker returned because she has been unwell for about 1 yr, with several non- specific or localized complaints. In addition, she had become newly anemic during the fall on 2 blood tests. Ironically, her hgb has recovered today. Her ANC is even in normal range. I don't think this is a blood disorder. Unclear why she was temporarily anemic, but I would expect a blood disorder to be getting worse, not better. I also don't think there is anything treatable here from the blood perspective to help with her symptoms. Markel Borjas MD documented in this encounter Plan of Treatment Upcoming Encounters Date Type Department Care Team (Late st Contact Info) Description 02/22/2024 4:15 PM EDT Office Visit Dermatology at [place] [address] [facility] [place] [address] Marek Bonilla MD [address] [facility] [place] [address] 06/05/2024 11:30 AM EST Office [place] [address] Magdalena Peralta MD [facility] [place] [address] documented as of this encounter Procedures Procedure Name Priority Date/Time Associated Diagnosis Comments URINALYSIS MICROSCOPIC EXAM Routine 07/03/2022 2:00 PM EST URINALYSIS WITH REFLEX CULTURE Routine 07/03/2022 2:00 PM EST Dysuria URINE CULTURE Routine 07/03/2022 2:00 PM EST documented in this encounter Results * (ABNORMAL) Urine culture (07/03/2022 2:00 PM EST) Urine Culture 10,000-49,000 cfu/ml Normal mucosal herman Note: Culture shows multiple bacterial species suggesting mucosal contamination. If symptoms continue to indicate urinary tract infection, submit a new specimen. (A) [facility] Clean Catch Urine 07/03/2022 2:00 PM EST 07/03/2022 5:55 PM EST Narrative Resulting Agency Comment Spec In Lab Markel Borjas MD MICROBIOLOGY - GEN ERAL ORDERABLES Performing Organization Address [facility]/ZIP Co de Phone Number [facility] [place] [address] * (ABNORMAL) Urinalysis Microscopic Exam (07/03/2022 2:00 PM EST) RBC UA 2 0 - 4 /HPF [facility] WBC UA 14(H) 0 - 5 /HPF [facility] Bacteria UA Occasional (A) None /HPF [facility] Squam Epith UA 12(H) <=4 /HPF [facility] Hyaline Cast UA 2 0 - 2 /LPF [facility] Clean Catch Urine 07/03/2022 2:00 PM EST 07/03/2022 2:29 PM EST Narrative Resulting Agency Comment Spec In Lab Markel Borjas MD URINE ORDERABLES Performing Organization Address City/[facility]/ZIP Co de Phone Number [facility] [place] [address] * (ABNORMAL) Urinalysis with reflex Culture (07/03/2022 2:00 PM EST) Glucose UA Negative Negative mg/dL [facility] Protein UA 30(A) Negative mg/dL [facility] Bilirubin UA Negative Negative mg/dL [facility] Comment: Clinical correlation required for positive Urine Bilirubin results as false positive may occur with some drugs and drug related products. If a false positive is suspected a serum total bilirubin should be considered if clinically indicated. Urobilinogen UA Normal Normal mg/dL [facility] pH UA 5.5 5.0 - 8.0 [facility] Blood UA Negative Negative mg/dL [facility] Ketones UA Trace(A) Negative mg/dL [facility] Nitrite UA Negative Negative [facility] Leukocytes UA Small(A) Negative [facility] Appearance UA Clear Clear [facility] Spec [place] UA 1.022 1.005 - 1.030 [facility] Color UA Yellow Yellow [facility] Culture Reflexed Yes [facility] Clean Catch Urine 07/03/2022 2:00 PM EST 07/03/2022 2:29 PM EST Narrative Resulting Agency Comment Spec In Lab Markel Borjas MD URINE ORDERABLES Performing Organization Address City/State/[facility] Co de Phone Number [facility] [place] [address] * (ABNORMAL) Comprehensive metabolic panel (non-fasting) (07/03/2022 12:40 PM EST) Glucose Lvl 92 65 - 199 mg/dL [facility] Comment:Diabetes: >=200 mg/d L plus symptoms BUN 22(H) 8 - 18 mg/dL [facility] Creatinine 0.80 0.70 - 1.20 mg/dL [facility] Sodium 139 135 - 145 mmol/L [facility] Potassium 4.2 3.5 - 5.0 mmol/L [facility] Comment: Please note: ??Patients with WBC >100,000 may have falsely elevated Potassium levels. ??For accurate Potassium quantification in these patients send serum separator tube (gold top) for subsequent determinations. ??Contact the Clinical Chemistry Laboratory if there are any questions. Chloride 105 98 - 107 mmol/L [facility] CO2 23 22 - 31 mmol/L [facility] Anion Gap 11 5 - 15 mmol/L [facility] Calcium 10.1 8.5 - 10.5 mg/dL [facility] Total Protein 7.6 6.1 - 8.0 g/dL [facility] Albumin 4.1 3.2 - 5.2 g/dL [facility] AST 25 0 - 30 unit/L [facility] ALT 14 0 - 30 unit/L [facility] Alk Phos 80 35 - 105 unit/L [facility] Total Bilirubin 0.3 0.2 - 1.3 mg/dL [facility] Estimated GFR 81 >=60 mL/min/1. 73 m?? [facility] Comment: This patient's estimated GFR [...] Lab Markel Borjas MD CHEMISTRY ORDERABL ES [facility] [place] [address] documented in this encounter Visit Diagnoses Diagnosis Chronic idiopathic neutropenia Other neutropenia Dysuria documented in this encounter Care Teams Process Architect Relationship Specialty Start Date End Date Deborah Quiroga APRN PCP - General Family Medicine 03/24/16 02/04/23 documented as of this encounter
--- OUTSIDE RECORDS SUMMARY | 2024-02-15 14:08 | XMS_ITS | Encounter Summary ---
Author Organization [facility] [address] Care Team Providers Care District Extension Service Agent Name Role Phone Magdalena Acosta MD Primary Care Provider [phone] Encounter Details Date Type Department Care Team (Latest Contact Info) Description 02/05/2023 9:33 PM EDT - 02/05/2023 11:59 PM EDT Hospital [place] [id number] Discharge Disposition: Home Social History Tobacco Use [...] tablet Take 81 mg by mouth daily. doxycycline (Vibramycin) 50 mg capsule Take one capsule by mouth daily in the evening. 90 capsule 01/14/2023 04/20/2023 meloxicam (Mobic) 15 mg tablet Take 15 mg by mouth daily. 05/22/2023 dilTIAZem CD (Cardizem CD) 180 mg Capsule, Sust. Release 24 hr Take 180 mg by mouth daily. 04/28/2022 05/22/2023 metroNIDAZOLE (METROGEL) 0.75 % Gel Apply every other day after washing as needed. 45 g 5 01/09/2022 05/22/2023 losartan (Cozaar) 25 mg Tablet Take 25 mg by mouth daily. 01/29/2020 05/22/2023 spironolactone (ALDACTONE) 25 mg Tablet Take 0.5 tablets by mouth daily. 10/03/2016 05/22/2023 documented as of this encounter Plan of Treatment Upcoming Encounters Date Type Department Care Team (Late st Contact Info) Description 02/22/2024 4:15 PM EDT Office Visit Dermatology at [place] [address] [place] [address] Marek Bonilla MD [address] [place] [address] [place] [address] 06/05/2024 11:30 AM EST Office [place] [address] Magdalena Peralta MD [facility] [place] [address] documented as of this encounter Procedures Procedure Name Priority Date/Time Associated Diagnosis Comments SURGICAL PATHOLOGY REPORT Routine 02/05/2023 3:00 PM EDT documented in this encounter Results * Surgical Pathology Report (02/05/2023 3:00 PM EDT) Pathologist [facility] Surgical Pathology Report [id number] ? Location: OPW The signing pathologist has (i) examined the relevant preparation(s) for the specimen(s) and (ii) rendered or confirmed the diagnosis(es). . ?Surgical Pathology DIAGNOSIS Left upper back, skin punch biopsy: - ??Compound dysplastic ??melanocytic nevus with moderate atypia, transected at peripheral specimen edges ?? (see discussion) Electronically signed by: ?Vanna CULP, Jesse Shields Verified: ??02/16/2023 8:04 ?? Dermatopathologist Performed at: ??[facility] Dept. of Pathology, [place] [address] Deputy Coroner Investigator: Kunal Rubi MD, FCAP, ??CLIA Certificate: [id number] DISCUSSION If there is an obvious clinical residuum and dermatologic concern for a more significant process, then repeat sampling should be considered. ADDITIONAL STUDIES Multiple step-leveled sections are examined. SPECIMEN(S) SUBMITTED A - L upper back, punch CLINICAL INFORMATION Dark new atypical appearing nevus; nevus SPECIMEN PROCESSING A - Labeled/Fixative: Patient demographics, formalin. Quantity/Size: ??Single, 0.4 cm. Tissue Description: Punch of white skin with a 0.4 x 0.3 cm dark brown to black macule. Sections/Processing: Inked, bisected and entirely submitted in 1 cassette labeled A1. ??sns [facility] 02/05/2023 3:00 PM EDT Marek Bonilla MD PATHOLOGY/CYTOLOGY O RDERABLES [facility] [place] [address] documented in this encounter Visit Diagnoses Not on filedocumented in this encounter Care Teams District Extension Service Agent Relationship Specialty Start Date End Date Magdalena Acosta MD [address] [place] [address] PCP - General Family Medicine 02/05/23 documented as of this encounter
--- OUTSIDE RECORDS SUMMARY | 2024-02-15 14:09 | XMS_ITS | Encounter Summary ---
Author Organization [facility] [place] [address] Care Team Providers Care Paint Roller Covermaker Name Role Phone Deborah Quiroga APRN Primary Care Provider [phone] Encounter Details Date Type Department Care Team (Late st Contact Info) Description 02/06/2020 Orders Only Hematology [place] [phone] Markel Borjas MD [place] [address] Neutropenia, unspecified type Social History Tobacco Use Types Packs/Day Years [...] PM EDT Office Visit Dermatology at [address] [place] [address] Marek Bonilla MD [address] [facility] DERMATOLOGY [place], [place] [id number] 06/05/2024 11:30 AM EST Office [place] [phone] Magdalena Peralta MD [facility] [address] documented as of this encounter Visit Diagnoses Diagnosis Neutropenia, unspecified type documented in this encounter Care Teams Paint Roller Covermaker Relationship Specialty Start Date End Date Deborah Quiroga APRN PCP - General Family Medicine 03/24/16 02/04/23 documented as of this encounter
--- OUTSIDE RECORDS SUMMARY | 2024-02-15 14:09 | XMS_ITS | Encounter Summary ---
Author Organization [facility] [place] [address] Care Team Providers Care Elevator Service Technician Name Role Phone Deborah Quiroga APRN Primary Care Provider [phone] Encounter Details Date Type Department Care Team (Late st Contact Info) Description 06/18/2017 External Results Hematology [place] [address] Alexandrea Greenwood RN Neutropenia, unspecified type Social History Tobacco Use [...] 4:15 PM EDT Office Visit Dermatology at [address] [place] [address] Marek Bonilla MD [address] [facility] [place] [address] 06/05/2024 11:30 AM EST Office [place] [address] Magdalena Peralta MD [facility] [place] [address] documented as of this encounter Procedures Procedure Name Priority Date/Time Associated Diagnosis Comments CBC (WITH DIFF) Routine 06/11/2017 1:19 PM EST Neutropenia, unspecified type COMPREHENSIVE METABOLIC PANEL (NON-FASTING) Routine 06/11/2017 1:19 PM EST Neutropenia, unspecified type documented in this encounter Results * Comprehensive metabolic panel (non-fasting) (06/11/2017 1:19 PM EST) BUN 13 7 - 18 EXTERNAL LAB Creatinine 1.02 0.55 - 1.02 EXTERNAL LAB Total Protein 7.7 6.4 - 8.2 EXTERNAL LAB Albumin 3.9 3.4 - 5.0 EXTERNAL LAB Total Bilirubin 0.32 0.2 - 1.0 EXTERNAL LAB Alk Phos 111 46 - 116 EXTERNAL LAB AST 20 15 - 37 EXTERNAL LAB ALT 19 14 - 59 EXTERNAL LAB Blood specimen (specimen) 06/11/2017 1:19 PM EST Markel Borjas MD CHEMISTRY ORDERABL ES Performing Organization Address [facility] Co de Phone Number EXTERNAL LAB * (ABNORMAL) CBC (with Diff) (06/11/2017 1:19 PM EST) Pathologist [facility] WBC 2.28(EXTER NAL/ABN) 4.4 - 10.8 EXTERNAL LAB Hemoglobin 13.9 12.0 - 15.5 EXTERNAL LAB Hematocrit 43.2 36.0 - 46.0 EXTERNAL LAB Platelets 269 130 - 400 EXTERNAL LAB Neutr Abs (ANC) 0.63(EXTER NAL/ABN) 1.2 - 6.7 EXTERNAL LAB Blood specimen (specimen) 06/11/2017 1:19 PM EST Markel Borjas MD HEMATOLOGY ORDERAB LES EXTERNAL LAB documented in this encounter Visit Diagnoses Diagnosis Neutropenia, unspecified type documented in this encounter Care Teams Elevator Service Technician Relationship Specialty Start Date End Date Deborah Quiroga APRN PCP - General Family Medicine 03/24/16 02/04/23 documented as of this encounter
--- OUTSIDE RECORDS SUMMARY | 2024-02-15 14:09 | XMS_ITS | Encounter Summary ---
[place] [address] Care Team Providers Care Trimming Operator Name Role Phone Deborah Quiroga Cornelius OSBORN Primary Care Provider [phone] Encounter Details Date Type Department Care Team (Late st Contact Info) Description 11/11/2020 Refill Dermatology at [address] [phone] Taylor Malone, SERVICE LOSS CONTROL CONSULTANT Social History Tobacco Use Types Packs/Day Years [...] PM EDT Office Visit Dermatology at [address] [address] Marek Bonilla MD [address] [place] [address] [place] [address] 06/05/2024 11:30 AM EST Office [place] [address] Magdalena Peralta MD [facility] [place] [address] documented as of this encounter Visit Diagnoses Not on filedocumented in this encounter Care Teams Trimming Operator Relationship Specialty Start Date End Date Deborah Quiroga APRN PCP - General Family Medicine 03/24/16 02/04/23 documented as of this encounter
--- OUTSIDE RECORDS SUMMARY | 2024-02-15 14:09 | XMS_ITS | Encounter Summary ---
[place] [address] Care Team Providers Care Parking Control Officer Name Role Phone Ashley Quirogan Cornelius ANURAG Primary Care Provider [phone] Reason for Visit * Reason Onset Date Comments Medical Care Coordination 07/27/2017 Encounter Details Date Type Department Care Team (Late st Contact Info) Description 07/27/2017 Telephone Hematology [place] [phone] Alexandrea Greenwood RN Medical Care Coordination Social History Tobacco Use Types Packs/Day Years [...] encounter Miscellaneous Notes * Telephone Encounter - Alexandrea Greenwood RN - 07/27/2017 12:25 PM EST Message received from press secretary: Injection/Infusion Referral Call placed to [facility] @ [phone] Spoke w/ FILTER [employer]ED [employer]ACER Services to be provided for pt are: CBC/CMP DONE Q6 MONTHS X2 STARTING NOVEMBER 2017 TECH confirmed they would provide services to pt - I CALLED PT, LM. Pt orders faxed to [phone] documented in this encounter Plan of Treatment Upcoming Encounters Date Type Department Care Team (Late st Contact Info) Description 02/22/2024 4:15 PM EDT Office Visit Dermatology at [place] [address] [facility] [place] [address] Marek Bonilla MD [address] [facility] [place] [address] 06/05/2024 11:30 AM EST Office [place] [address] Magdalena Peralta MD [facility] DR RHEUMATOLOGY [place] [address] documented as of this encounter Visit Diagnoses Not on filedocumented in this encounter Care Teams Parking Control Officer Relationship Specialty Start Date End Date Deborah Quiroga APRN PCP - General Family Medicine 03/24/16 02/04/23 documented as of this encounter
--- OUTSIDE RECORDS SUMMARY | 2024-02-15 14:09 | XMS_ITS | Encounter Summary ---
Author Organization [facility] Address [facility] [place] [address] Care Team Providers Care Watchmaking Teacher Name Role Phone Deborah Quiroga APRN Primary Care Provider [phone] Encounter Details Date Type Department Care Team (Late st Contact Info) Description 06/18/2017 11:00 AM EST Office Visit Hematology and Oncology at [facility] [place] [phone] Markel Borjas MD [facility] [place] [address] Neutropenia, unspecified type Social History Tobacco Use [...] Sign Reading Time Taken Comments Blood Pressure 144/68 06/18/2017 11:19 AM EST Pulse 83 06/18/2017 11:19 AM EST Temperature 36.5 ??C (97.7 ??F) 06/18/2017 11:[address] Respiratory Rate 17 06/18/2017 11:19 AM EST Oxygen Saturation 99% 06/18/2017 11:19 AM EST Inhaled Oxygen Concentration - - Weight 102.1 kg (225 lb) 06/18/2017 11:19 AM EST Height 155 cm (5' 1.02) 06/18/2017 11:19 AM EST Body Mass Index 42.48 06/18/2017 11:19 AM EST documented in this encounter Progress Notes * Markel Borjas MD - 06/18/2017 11:00 AM EST Hematology Outpatient Clinic [facility] Hematology Outpatient Consult Note CC: 60 year [...] TOUCH PREP, CLOT SECTION, CORE ??BIOPSY); [OSR# [id number], COLLECTED 06/23/2016, 19 SLIDES]: ?1. ??Normocellular marrow [...] a clonal lymphoproliferative or myeloproliferative disorder (OSR# [id number]) Chromosome analysis on the marrow aspirate revealed a normal female karyotype; ?? 46,XX ?? PB Flow- DIAGNOSIS 1. No increased or abnormal immunophenotype T/NK/LGL or monoclonal B-cell ??populations identified. 2. No increased blast population present (see Discussion). INTERIM HISTORY Pt here for follow up. She has been feeling well. No fevers/ chills. No infections. No new medical issues. She admits to gaining some weight due to inactivity. Still working the same job and participating in [employer] patients. Past Medical/Surgical History: 1. Leukopenia -element of neutropenia, as noted above 2. Aortic Stenosis -severe -AVR surgery 3. Hypercholesterolemia 4. Depression 5. Hypertension 6. Obesity Social History: TOB - neg ETOH - neg Works at [employer] in [employer] department Plays competitive scrabble, and goes to [employer] Family History: No known primary marrow disorders or hematologic malignancies HTN (father) Afib (brother) Medications: Medications 12/11/16 0905 Medication Sig Taking? acetaminophen (TYLENOL) 500 mg Tablet Take 2 tablets by mouth every 6 hours as needed for Pain (Please take up to 1,000 mg every 6 hours when experiencing pain -05/11.). spironolactone (ALDACTONE) 25 mg Tablet Take 0.5 tablets by mouth daily. multivitamin (THERAGRAN) Tablet Take 1 tablet by mouth daily. meTOPROLOL tartrate (LOPRESSOR) 25 mg Tablet Take 25 mg by mouth 2 times daily. atorvastatin (LIPITOR) 10 mg Tablet Take 10 mg by mouth daily. buPROPion (WELLBUTRIN SR) 100 mg Tablet Sustained Release Take 100 mg by mouth every evening. buPROPion (WELLBUTRIN SR) 150 mg 12 hr tablet Take 150 mg by mouth every morning. aspirin 81 mg EC tablet Take 81 mg by mouth daily. Allergies: Reviewed in eD-H Review of Systems Besides what is mentioned in HPI, all other systems are negative Physical Exam: There were no vitals filed for this visit. Gen: Well-appearing woman, conversant and in no acute distress. HEENT: Sclerae anicteric; no oropharyngeal lesions. Neck: Supple; no palpable thyromegaly. Lungs: Clear to auscultation. Cardiovascular: Normal rate and regular rhythm; grade III/ HS murmur. Abd: Benign, without palpable hepatosplenomegaly. Lymphatics: No palpable lymphadenopathy. Skin: No jaundice, rash, ecchymoses or petechiae. Neuro: Grossly intact. Extremities: No edema. Labs: Hgb= 13 Mnmw=867 ANC= 0.6 Imaging As above - reviewed CT scan [...] 8 days after receiving neulasta. 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 We decided not to pursue genetic tests because it would not likely affect our management, and pt has no children to pass the gene to. Fortunately she has had no infections, and is essentially asymptomatic. We discussed management. One option would be to inject neupogen on some regular schedule. However, because she has been so asymptomatic, and because her body is likely mounting response to stress/ infection, I do not think this is necessary. I cautioned her to be vigilant for any fevers, and go to ER. If she is neutropenic during illness, I would advise the use of GCSF. If Ms Thacker starts to develop infections, we will need to reconsider the use of regularly scheduledGCSF. Will check labs every 6 months, but due to her distance from here, will see her in 12 months. Markel Borjas MD documented in this encounter Plan of Treatment Upcoming Encounters Date Type Department Care Team (Late st Contact Info) Description 02/22/2024 4:15 PM EDT Office Visit Dermatology at [place] [address] [place] [address] Marek Bonilla MD [address] [place] [address] 06/05/2024 11:30 AM EST Office [place] [address] Magdalena Peralta MD [facility] DR [place] [address] documented as of this encounter Visit Diagnoses Diagnosis Neutropenia, unspecified type documented in this encounter Care Teams Watchmaking Teacher Relationship Specialty Start Date End Date Deborah Quiroga APRN PCP - General Family Medicine 03/24/16 02/04/23 documented as of this encounter
--- OUTSIDE RECORDS SUMMARY | 2024-02-15 14:09 | XMS_ITS | Encounter Summary ---
Author [facility] [place] [address] Care Team Providers Care Electronics Test Engineer Name Role Phone Deborah Quiroga ANURAG Primary Care Provider [phone] Encounter Details Date Type Department Care Team (Late st Contact Info) Description 07/21/2017 Orders Only Hematology [place] [phone] Alexandrea Greenwood RN Other neutropenia Social History Tobacco Use Types Packs/Day Years [...] 4:15 PM EDT Office Visit Dermatology at [place] [address] [place] [address] Marek Bonilla MD [address] [place] [address] 06/05/2024 11:30 AM EST Office [place] [phone] Magdalena Peralta MD [facility] [place] [address] documented as of this encounter Visit Diagnoses Diagnosis Other neutropenia documented in this encounter Care Teams Electronics Test Engineer Relationship Specialty Start Date End Date Deborah Quiroga, ANURAG PCP - General Family Medicine 03/24/16 02/04/23 documented as of this encounter
--- OUTSIDE RECORDS SUMMARY | 2024-02-15 14:09 | XMS_ITS | Encounter Summary ---
Author Organization [facility] [place] [address] Care Team Providers Care Cook Boat Name Role Phone Deborah Quiroga APRN Primary Care Provider [phone] Encounter Details Date Type Department Care Team (Late st Contact Info) Description 06/08/2022 Ancillary Procedure [place] [address] Deborah Quiroga MILLINERY DEPARTMENT MANAGER [address] [address] Social History Tobacco Use Types Packs/Day Years [...] 4:15 PM EDT Office Visit Dermatology at [address] [place] [phone] Marek Bonilla MD [address] [facility] DERMATOLOGY [place], [place] [phone] 06/05/2024 11:30 AM EST Office [place] [address] [facility] [place] [address] documented as of this encounter Procedures Procedure Name Priority Date/Time Associated Diagnosis Comments FILM LIBRARY STORAGE ONLY DX SPINE Routine 06/08/2022 12:00 AM EST documented in this encounter Results * Film Library- Storage Only DX Spine (06/08/2022 12:00 AM EST) Narrative [facility] - 06/18/2022 10:57 AM EST This exam is auto-finalizing. It's purpose is for storage only. Deborah Quiroga APRN IMGerman FILM LIBRARY OR DERABLES Performing Organization Address City/State/[facility] Co de Phone Number [place], [place] documented in this encounter Visit Diagnoses Not on filedocumented in this encounter Care Teams Cook Boat Relationship Specialty Start Date End Date Deborah Quiroga APRN PCP - General Family Medicine 03/24/16 02/04/23 documented as of this encounter
--- OUTSIDE RECORDS SUMMARY | 2024-02-15 14:09 | XMS_ITS | Encounter Summary ---
Author Organization [facility] Address [facility] [place] [address] Care Team Providers Care Mandarin Teacher Name Role Phone Deborah Quiroga APRN Primary Care Provider [phone] Reason for Visit * Consultation (Routine) - Closed Specialty Diagnoses / Procedures Referred By Contkrystle t Referred To Contact Rheumatology Diagnoses Positive FRANCISCO (antinuclear antibody) Arthralgia, unspecified joint Sandy Wu APRN [address] [place] [address] [facility] [address] [place] [address] Referral ID Status Reason Start Date Expiration Date V isits Requested Visits Authorized [id number] Closed Consult, Test & Treat PCP Updated and/or Approved 01/01/2022 01/01/2023 6 6 Encounter Details Date Type Department Care Team (Latest Contact Info) Description 01/20/2022 10:00 AM EDT Office [place] [address] Raymond Loerdo MD [facility] [address] [place] [address] Rosacea; Raynaud's phenomenon without gangrene; Positive FRANCISCO (antinuclear antibody); Primary osteoarthritis involving multiple joints; Carpal tunnel syndrome, bilateral Social History Tobacco Use Types Packs/Day Years [...] Sign Reading Time Taken Comments Blood Pressure 124/63 01/20/2022 9:42 AM EDT Pulse 74 01/20/2022 9:42 AM EDT Temperature 36 ??C (96.8 ??F) 01/20/2022 9:42 AM EDT Respiratory Rate 16 01/20/2022 9:42 AM EDT Oxygen Saturation 100% 01/20/2022 9:42 AM EDT Inhaled Oxygen Concentration - - Weight 97.1 kg (214 lb) 01/20/2022 9:42 AM EDT s tated Height 154.9 cm (5' 1) 01/20/2022 9:42 AM EDT Body Mass Index 40.43 01/20/2022 9:42 AM EDT documented in this encounter Patient Instructions * Patient Instructions* Raymond Loredo MD - 01/20/2022 10:48 AM EDT 1. 1. Knee osteoarthritis right greater than left leading to difficulty getting up from a chair anddoing stairs. We discussed the importance of knee strengthening exercises specifically quadriceps and the importance of even minimal weight loss less than 5 pounds. 2. Despite a positive blood test for lupus (FRANCISCO) there is nothing in her exam to suggest an inflammatory polyarthritis, lupus skin disease, or any major organ dysfunction. It may be that this positive blood test results from metoprolol which is known to give people positive blood test for lupus. 3. Raynaud's the patient is not experiencing any major skin damage or skin breakdown or skin ulcerations. Thus her Raynaud's is modest . It is recognized that beta-blockers exacerbate Raynaud's as well so you could consider stopping the metoprolol and transitioning her to something like diltiazem which will help her Raynaud's and positive test for lupus at the same time. 4. Carpal tunnel symptoms controlled by splints and/or braces. She can decide if she would like a carpal tunnel release operation which can be done locally or here at [facility] documented in this encounter Progress Notes * Raymond Loredo MD - 01/20/2022 10:00 AM EDT Rheumatology Staff Note Ms. Thacker is a 66-year-old woman who was referred for positive FRANCISCO of 1-1280 in the context of metoprolol therapy, prompting the question of lupus given reports of polyarthralgia. History of present illness: The patient is a somewhat vague historian but the story seems to go thusly. On the backdrop of complex medical history that includes aortic valve replacement, hypertension, Raynaud's syndrome and obstructive sleep apnea, for many years, the patient developed bilateral shoulder pain in March 2021. It came on relatively acutely and she had trouble lifting her arms overhead.There was no associated headache or joint swelling associated with this and experienced persistent symptoms that did respond to ibuprofen but never troubles her excessively nor limited her ability. Beginning in September 2021, the patient noted exacerbation of her Raynaud's and more pain and stiffness in her hands and wrists in association with tingling feelings that awoke her from sleep splinting has made a great difference in terms of the symptoms suggestive of carpal tunnel syndrome. She did not describe nelsy arthritis and significant functional limitation in gait except for what derived from her right knee which began to bother her to a greater extent. She had similar symptoms on the left but not as severe. Together these have altered her ability to walk. It is not quite clear how much benefit her joint discomfort received is from ambulation. There are a number of other issues that are reported such as pain in her jaw when she opens it wide, the appearance of restless leg syndrome but does not disrupt her sleep and an episode of shingles in October of this year localized to the T10 dermatome on the left. Patient Active Problem List Diagnosis Code ??? Chronic idiopathic neutropenia D70.9 ??? Aortic stenosis I35.0 ??? History of aortic valve replacement Z95.2 ??? Depressive disorder F32.A ??? Diverticulosis K57.90 ??? Essential hypertension I10 ??? Essential tremor G25.0 ??? Hyperlipidemia, unspecified E78.5 ??? Obesity E66.9 ??? NICOLAS (obstructive sleep apnea) G47.33 ??? Rosacea L71.9 Social and family history are noncontributory except for cardiovascular disease and a mother with sofi osteoarthritis. Physical Examination: General-Well developed well nourished who is alert and in no apparent distress at rest. Skin extensive rosacea on her cheeks-No clubbing, cyanosis, rubor, edema, rash or nailfold capillary dropout HEENT: No temporal artery, sinus or TMJ tenderness. Mucus membranes moist, normal salivary pooling without lesions.Normal parotid, submental and submandibular nodes Neck-Supple no bruits Chest: clear to auscultation, good air movement without wheezes Cor: RR 2/6 RUSTY Back: No tenderness to punch, normal SLR Ext: Extremities warm w// normal pulses Musculoskeletal: Trigger points not present. Shoulders: FROM, no AC/subacromial tenderness. Elbows: Full motion, no joint or epicondylar swelling or tenderness. Wrists: Full motion, no swelling, no warmth, no tenderness over radiocarpal or ulnocarpal joints. Hands: Normal lane marker installer and claw. SJC/TJC 0/0. Hips: Full motion, no trochanteric tenderness Knees: Decreased flexion on the right to approximately 90 degrees versus 120 degrees on the left Ankles: No warmth, swelling, normal motion. No Achilles or plantar fascia tenderness. Feet: No deformity. Normal MTPJs no compression tenderness. Neuro: No focal weakness, normal sensation, no opponens pollicis weakness Assessment and plan: Generally, there is nothing to suggest a diagnosis of lupus in this patient the positive FRANCISCO is notassociated with anything other than her Raynaud's. Rather, there is a mix of osteoarthritis, rosacea, Raynaud's on the backdrop of obstructive sleep apnea, hypertension, aortic valve replacement. 1. Knee osteoarthritis right greater than left leading to difficulty getting up from a chair and doing stairs. We discussed the importance of knee strengthening exercises specifically quadriceps and the importance of even minimal weight loss less than 5 pounds. 2. Despite a positive blood test for lupus (FRANCISCO) there is nothing in her exam to suggest an inflammatory polyarthritis, lupus skin disease, or any major organ dysfunction. It may be that this positive blood test results from metoprolol which is known to give people positive blood test for lupus. 3. Raynaud's the patient is not experiencing any major skin damage or skin breakdown or skin ulcerations. Thus her Raynaud's is modest . It is recognized that beta-blockers exacerbate Raynaud's as well so you could consider stopping the metoprolol and transitioning her to something like diltiazem which will help her Raynaud's and positive test for lupus at the same time. 4. Carpal tunnel symptoms controlled by splints and/or braces. She can decide if she would like a carpal tunnel release operation which can be done locally or here at [facility] that the current time is not particularly interested it seems Raymond Loredo MD documented in this encounter Plan of Treatment Upcoming Encounters Date Type Department Care Team (Late st Contact Info) Description 02/22/2024 4:15 PM EDT Office Visit Dermatology at [place] [address] [place] [address] Marek Bonilla MD [address] [facility] [place] [address] 06/05/2024 11:30 AM EST Office [place] [address] Magdalena Peralta MD [facility] [place] [address] Scheduled Referrals Name Type Priority Associated Diagnoses Orde r Schedule Referral to Rheumatology Outpatient Referral Routine Positive FRANCISCO (antinuclear antibody) Arthralgia, unspecified joint Ordered: 01/01/2022 documented as of this encounter Visit Diagnoses Diagnosis Rosacea Raynaud's phenomenon without gangrene Positive FRANCISCO (antinuclear antibody) Other and unspecified nonspecific immunological findings Primary osteoarthritis involving multiple joints Carpal tunnel syndrome, bilateral Carpal tunnel syndrome documented in this encounter Care Teams Mandarin Teacher Relationship Specialty Start Date End Date Deborah Quiroga APRN PCP - General Family Medicine 03/24/16 02/04/23 documented as of this encounter
--- OUTSIDE RECORDS SUMMARY | 2024-02-15 14:09 | XMS_ITS | Encounter Summary ---
Author Organization [facility] Address [facility] [place] [address] Care Team Providers Care Collaborative Teacher Name Role Phone Junaid Deborah Shields APRN Primary Care Provider [phone] Reason for Visit * Reason Comments Schedule Office Case Pain right leg Encounter Details Date Type Department Care Team (Late st Contact Info) Description 12/11/2016 9:00 AM EDT Office Visit Hematology and Oncology at [facility] [place] [address] Markel Borjas MD [facility] [place] [address] Neutropenia, unspecified type Social History Tobacco Use [...] Sign Reading Time Taken Comments Blood Pressure 139/72 12/11/2016 9:01 AM EDT Pulse 86 12/11/2016 9:01 AM EDT Temperature 37.1 ??C (98.8 ??F) 12/11/2016 9:01 AM ED T Respiratory Rate 18 12/11/2016 9:01 AM EDT Oxygen Saturation 99% 12/11/2016 9:01 AM EDT Inhaled Oxygen Concentration - - Weight 100.2 kg (221 lb) 12/11/2016 9:01 AM EDT Height 154.9 cm (5' 0.98) 12/11/2016 9:01 AM ED T Body Mass Index 41.78 12/11/2016 9:01 AM EDT documented in this encounter Progress Notes * Markel Borjas MD - 12/11/2016 9:00 AM EDT Hematology Outpatient Clinic [facility] Hematology Outpatient Consult Note CC: 60 year old woman with h/o worsening due for upcoming CT Surgery referred for work-up of incidentally found leukopenia with neutropenia on pre-op assessment. The patient comes to clinic alone.Available medical records were reviewed. HPI: Purnima is a 60-year-old woman referred by Dr. Esparza for further assessment of leukopenia and neutropenia prior to impending aortic valve replacement surgery. She has been followed by CT Surgery (Dr. Esparza) and Cardiology (Dr. Escobedo) over the past few months with severe , noting symptoms of fatigue and dyspnea on exertion (gradual onset), without apparent chest pain or presyncopal symptoms. No emergency room visits or hospitalizations related to this issue, though she does report agradual decline from her baseline functional status. ?? [...] 2-3 years, as outlined below Work Up ?? Labs ?? Mar 2013: WBC 2.27 AMC 1.09 ALC 0.86 ?? December 2013: WBC 2.11 ?? 07/2016- ANC= 0.48 ?? 08/04/16- ANC= 1.17 (after test dose of neulasta) ?? 09/24/16- ANC= 7.79 (POD 2 after aortic valve repair and 8 days after neulasta) ?? 11/2016- ANC= 0.5 (after stopping ASHLEIGH-I for 3 months) ? Imaging ?? CT c/a/p (06/2016)- no lymphadenopathy or masses- essentially normal ?? Pathology ?? DIAGNOSIS BONE MARROW (PERIPHERAL SMEAR, ASPIRATE SMEAR, TOUCH PREP, CLOT SECTION, CORE ??BIOPSY); [OSR# [id number], COLLECTED 06/23/2016, 19 SLIDES]: ?1. ??Normocellular marrow [...] a clonal lymphoproliferative or myeloproliferative disorder (OSR# [id number]) Chromosome analysis on the marrow aspirate revealed a normal female karyotype; ?? 46,XX ?? PB Flow- DIAGNOSIS 1. No increased or abnormal immunophenotype T/NK/LGL or monoclonal B-cell ??populations identified. 2. No increased blast population present (see Discussion). INTERIM HISTORY Pt here for follow up. Underwent heart surgery uneventfully. No post op complications. Past Medical/Surgical History: 1. Leukopenia -element of neutropenia, as noted above 2. Aortic Stenosis -severe -AVR surgery pending 3. Hypercholesterolemia 4. Depression 5. Hypertension 6. 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 Yes meTOPROLOL tartrate (LOPRESSOR) 25 mg Tablet Take 25 mg by mouth 2 times daily. Yes atorvastatin (LIPITOR) 10 mg Tablet Take 10 mg by mouth daily. Yes buPROPion (WELLBUTRIN SR) 100 mg Tablet Sustained Release Take 100 mg by mouth every evening. Yes buPROPion (WELLBUTRIN SR) 150 mg 12 hr tablet Take 150 mg by mouth every morning. Yes aspirin 81 mg EC tablet Take 81 mg by mouth daily. Yes Allergies: Reviewed in eD-H Review of Systems Besides what is mentioned in HPI, all other systems are negative Physical Exam: Vitals: 12/11/16 0901 BP: 139/72 Pulse: 86 Resp: 18 Temp: 37.1 ??C (98.8 ??F) Gen: Well-appearing woman, conversant and in no acute distress. HEENT: Sclerae anicteric; no oropharyngeal lesions. Neck: Supple; no palpable thyromegaly. Lungs: Clear to auscultation. Cardiovascular: Normal rate and regular rhythm; grade III/ HS murmur. Abd: Benign, without palpable hepatosplenomegaly. Lymphatics: No palpable lymphadenopathy. Skin: No jaundice, rash, ecchymoses or petechiae. Neuro: Grossly intact. Extremities: No edema. Labs: Hgb= 13 Uyvd=125 ANC= 0.5 Imaging As above - reviewed CT scan HematoPathology: As above- personally reviewed bone marrow Assessment: 60 year-old woman found to have severe neutropenia during preop evaluation. She has no history of infections. Her work up has been negative for an explanation (BM, CT scan, peripheral blood flow). Interestingly, she mounted a neutrophil response (8000) after surgery and 8 days after receiving neulasta. My previous thought was that this may be drug induces by ASHLEIGH-I. She has stopped the ASHLEIGH-I, and ANC has not improved. While spironolactone has been rarely reported to cause neutropenia, her neutropenia predates her starting the med. I am now more convinced that this is Chronic Idiopathic Neutropenia. We discussed the role of further testing for gene mutations. We decided that because it would not change our current management, we will defer this. We discussed management. One option would be [...] to reconsider the use of regularly scheduledGCSF. Markel Borjas MD documented in this encounter Plan of Treatment Upcoming Encounters Date Type Department Care Team (Late st Contact Info) Description 02/22/2024 4:15 PM EDT Office Visit Dermatology at [place] [address] [place] [address] Marek Bonilla MD [address] [facility] [place] [address] 06/05/2024 11:30 AM EST Office [place] [address] Magdalena Peralta MD [facility] [place] [address] documented as of this encounter Results * (ABNORMAL) CBC (with Diff) (06/11/2017 1:19 PM EST) Pathologist [facility] WBC 2.28(EXTER NAL/ABN) 4.4 - 10.8 EXTERNAL LAB Hemoglobin 13.9 12.0 - 15.5 EXTERNAL LAB Hematocrit 43.2 36.0 - 46.0 EXTERNAL LAB Platelets 269 130 - 400 EXTERNAL LAB Neutr Abs (ANC) 0.63(EXTER NAL/ABN) 1.2 - 6.7 EXTERNAL LAB Blood specimen (specimen) 06/11/2017 1:19 PM EST Markel Borjas MD HEMATOLOGY ORDERAB LES EXTERNAL LAB * Comprehensive metabolic panel (non-fasting) (06/11/2017 1:19 PM EST) Pathologist [facility] BUN 13 7 - 18 EXTERNAL LAB [...] EST Markel Borjas MD CHEMISTRY ORDERABL ES EXTERNAL LAB documented in this encounter Visit Diagnoses Diagnosis Neutropenia, unspecified type documented in this encounter Care Teams Collaborative Teacher Relationship Specialty Start Date End Date Deborah Quiroga, PROPELLER DRIVEN AIRPLANE MECHANIC PCP - General Family Medicine 03/24/16 02/04/23 documented as of this encounter
--- OUTSIDE RECORDS SUMMARY | 2024-02-15 14:09 | XMS_ITS | Encounter Summary ---
Author Organization [facility] [place] [address] Care Team Providers Care Scooter Mechanic Name Role Phone Deborah Quiroga APRN Primary Care Provider [phone] Encounter Details Date Type Department Care Team (Late st Contact Info) Description 06/17/2022 Ancillary Procedure [place] [address] Deborah Quiroga PLATE FITTER [address] [address] Social History Tobacco Use Types Packs/Day Years [...] 4:15 PM EDT Office Visit Dermatology at [address] [place] [phone] Marek Bonilla MD [address] [facility] DERMATOLOGY [place], [place] [id number] 06/05/2024 11:30 AM EST Office [place] [address] Magdalena Peralta MD [facility] [place] [address] documented as of this encounter Procedures Procedure Name Priority Date/Time Associated Diagnosis Comments FILM LIBRARY STORAGE ONLY MR SPINE Routine 06/17/2022 12:00 AM EST documented in this encounter Results * Film Library- Storage Only MR Spine (06/17/2022 12:00 AM EST) Narrative [facility] - 06/18/2022 11:00 AM EST This exam is auto-finalizing. It's purpose is for storage only. Deborah Quiroga APRN IMGerman FILM LIBRARY OR DERABLES Performing Organization Address City/State/[facility] Co de Phone Number [place], [place] documented in this encounter Visit Diagnoses Not on filedocumented in this encounter Care Teams Scooter Mechanic Relationship Specialty Start Date End Date Deborah Quiroga APRN PCP - General Family Medicine 03/24/16 02/04/23 documented as of this encounter
--- OUTSIDE RECORDS SUMMARY | 2024-02-15 14:09 | XMS_ITS | Encounter Summary ---
Author Organization [facility] Address [facility] [place] [address] Care Team Providers Care Treating Inspector Name Role Phone Deborah Quiroga ANURAG Primary Care Provider [phone] Encounter Details Date Type Department Care Team (Late Contact Info) Description 02/07/2020 Telephone Hematology [place] [address] Ellen Rios RN Social History Tobacco Use Types Packs/Day [...] encounter Miscellaneous Notes * Telephone Encounter - Ellen Rios RN - 02/07/2020 12:59 PM EDT Message received from pediatric licensed practical nurse: Injection/Infusion Referral Services to be provided for pt are: CBC only at [facility]- Pt will go by 02/27 Orders faxed to [phone]). Spoke with pt. She will call [facility] directly to schedule a time that works for her. documented in this encounter Plan of Treatment Upcoming Encounters Date Type Department Care Team (Late Contact Info) Description 02/22/2024 4:15 PM EDT Office Visit Dermatology at [address] [address] Marek Bonilla MD [address] [facility] [place] [place] [address] 06/05/2024 11:30 AM EST Office [place] [address] Magdalena Peralta MD [facility] [place] [address] documented as of this encounter Visit Diagnoses Not on filedocumented in this encounter Care Teams Treating Inspector Relationship Specialty Start Date End Date Deborah Quiroga APRN PCP - General Family Medicine 03/24/16 02/04/23 documented as of this encounter
--- OUTSIDE RECORDS SUMMARY | 2024-02-15 14:09 | XMS_ITS | Encounter Summary ---
[place] [address] Care Team Providers Care Acls Specialist Name Role Phone Deborah Quiroga APRN Primary Care Provider [phone] Encounter Details Date Type Department Care Team (Late st Contact Info) Description 06/05/2021 Interpretation Only [address] [phone] Deborah Quiroga APRN [address] [address] Social History Tobacco Use Types Packs/Day Years [...] 4:15 PM EDT Office Visit Dermatology at [address] [place] [address] Marek Bonilla MD [address] [facility] [place] [address] 06/05/2024 11:30 AM EST Office [place] [address] Magdalena Peralta MD [facility] [address] documented as of this encounter Procedures Procedure Name Priority Date/Time Associated Diagnosis Comments MAMMO SCREENING CAD BILATERAL Routine 06/05/2021 11:42 AM EDT documented in this encounter Results * Mammo Screening Cad Bilateral (06/05/2021 11:42 AM EDT) PT CLASS O DH RAD ADMITDTTM DH RAD PT DH RAD MD INFO [id number]^EV ERETT^DEBORAH^E DH RAD EXAM DESC MADDSC^SCREEN MAMMO BL INCLUDES CAD^RIS DH RAD Anatomical Region Laterality Modality Breast Bilateral [...] who have questions please contact the health home care administrator that requested your imaging first. ? Electronically signed by: Rocael Villatoro MD, [facility] ([phone]), at 06/05/2021 1:27 PM Narrative 06/05/2021 1:27 [...] patients who have questions please contactthe health home care administrator that requested your imaging first. Electronically signed by: Rocael Villatoro MD, [facility]([phone]), at 06/05/2021 1:27 PM Deborah Quiroga APRN IMG MAMMO ORDERABLE S documented in this encounter Visit Diagnoses Not on filedocumented in this encounter Care Teams Acls Specialist Relationship Specialty Start Date End Date Deborah Quiroga APRN PCP - General Family Medicine 03/24/16 02/04/23 documented as of this encounter
--- OUTSIDE RECORDS SUMMARY | 2024-02-15 14:09 | XMS_ITS | Encounter Summary ---
Author Organization [facility] Address [facility] [place] [address] Care Team Providers Care Physical Security Manager Name Role Phone Ashley Quirogazac Shields APRN Primary Care Provider [phone] Encounter Details Date Type Department Care Team (Late st Contact Info) Description 10/20/2016 11:20 AM EDT Office [place] [phone] Alirio Esparza MD [facility] DR [place] [address] S/P AVR Social History Tobacco Use Types Packs/Day Years [...] Sign Reading Time Taken Comments Blood Pressure 145/90 10/20/2016 11:16 AM EDT Pulse 76 10/20/2016 11:16 AM EDT Temperature - - Respiratory Rate - - Oxygen Saturation 98% 10/20/2016 11:16 AM EDT room air Inhaled Oxygen Concentration - - Weight 97.5 kg (215 lb) 10/20/2016 11:16 AM EDT Height 154.9 cm (5' 1) 10/20/2016 11:16 AM EDT Body Mass Index 40.62 10/20/2016 11:16 AM EDT documented in this encounter Progress Notes * Alirio Esparza MD - 10/20/2016 11:20 AM EDT Ms. Thacker is status post tissue AVR with a 25 mm pericardial tissue valve. Coming back, she feels relatively well. She is still fatigued. No shortness of breath. Her chest is not bothering her. She is very eager to get back to work. She has started participating in cardiac rehab. Her vital signs are stable. Her wound is clean, dry, and intact. It feels stable. She has no swelling in her leg. She had all of her postoperative tests done at [facility]. Her echo shows a well-seated valve. Her EF, for some reason, was read as in the 45% to 50% range. She had a normal EF to start. I think that will need to be repeated at [facility]. She has no perivalve leak. Her mean gradient is single digit. She has no other valvular abnormalities. Ms. Thacker has no coronary disease. Her chest x-ray is clear. Her EKG shows no acute changes. Impression is Ms. Thacker is doing well from her surgery. She has no complaints. Her neutropenia did not cause us any problems postoperatively. She has been given her antibiotic prophylactic card for teeth cleaning that she did not receive at the time of her hospitalization. She can return to driving, participate in cardiac rehab, and she has a note to get back to work in about a week's time. If she has any other further specific questions or concerns, she should follow up with me. 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 cc: Dr. Burrell documented in this encounter Plan of Treatment Upcoming Encounters Date Type Department Care Team (Late st Contact Info) Description 02/22/2024 4:15 PM EDT Office Visit Dermatology at [address] [place] [address] Marek Bonilla MD [address] [facility] [place] [address] 06/05/2024 11:30 AM EST Office [place] [address] Magdalena Peralta MD [facility] [place] [address] documented as of this encounter Visit Diagnoses Diagnosis S/P AVR Heart valve replaced by other means documented in this encounter Care Teams Physical Security Manager Relationship Specialty Start Date End Date Deborah Quiroga APRN PCP - General Family Medicine 03/24/16 02/04/23 documented as of this encounter
--- OUTSIDE RECORDS SUMMARY | 2024-02-15 14:09 | XMS_ITS | Encounter Summary ---
Author Organization [facility] [place] [address] Care Team Providers Care Digester Operator Helper Name Role Phone Deborah Quiroga ANURAG Primary Care Provider [phone] Encounter Details Date Type Department Care Team (Late st Contact Info) Description 12/04/2016 External Results Hematology [place] [address] Teresa Dodson RN Social History Tobacco Use Types Packs/Day [...] 4:15 PM EDT Office Visit Dermatology at [address] [address] Marek Bonilla MD [address] [facility] [place] [address] 06/05/2024 11:30 AM EST Office [place] [address] Magdalena Peralta MD [facility] [place] [address] documented as of this encounter Procedures Procedure Name Priority Date/Time Associated Diagnosis Comments CBC (WITH DIFF) Routine 12/03/2016 11:35 AM EDT COMPREHENSIVE METABOLIC PANEL (NON-FASTING) Routine 12/03/2016 11:35 AM EDT documented in this encounter Results * (ABNORMAL) Comprehensive metabolic panel (non-fasting) (12/03/2016 11:35 AM EDT) Glucose Lvl 85(Externa l Lab) BUN 11(Externa l Lab) Creatinine 0.93(Exter nal Lab) Sodium 140(Senior International Tax Manager al Lab) Potassium 4.2(Senior International Tax Manager al Lab) Chloride 104(Senior International Tax Manager al Lab) Calcium 10.0(Exter nal Lab) Total Protein 8.1(Senior International Tax Manager al Lab) Albumin 3.5(Senior International Tax Manager al Lab) Total Bilirubin 0.25(Exter nal Lab) Alk Phos 96(Externa l Lab) AST 18(Externa l Lab) ALT 21(Externa l Lab) Blood specimen (specimen) 12/03/2016 11:35 AM EDT Historical Provider CHEMISTRY ORDERAB LES * (ABNORMAL) CBC (with Diff) (12/03/2016 11:35 AM EDT) WBC 1.61(EXTER NAL/ABN) 4.4 - 10.8 Hemoglobin 13.0(Exter nal Lab) Hematocrit 39.8(Exter nal Lab) Platelets 248(Senior International Tax Manager al Lab) Neutr Abs (ANC) 0.5(SLEEVE BASTER AL/ABN) Blood specimen (specimen) 12/03/2016 11:35 AM EDT Historical Provider HEMATOLOGY ORDERA BLES documented in this encounter Visit Diagnoses Not on filedocumented in this encounter Care Teams Digester Operator Helper Relationship Specialty Start Date End Date Deborah Quiroga, SEMICONDUCTOR TESTING GROUP LEADER PCP - General Family Medicine 03/24/16 02/04/23 documented as of this encounter
--- OUTSIDE RECORDS SUMMARY | 2024-02-15 14:09 | XMS_ITS | Encounter Summary ---
Author Organization [facility] Erika lópez[place] [address] Care Team Providers Care Livestock Feeder Name Role Phone Deborah Quiroga APRN Primary Care Provider [phone] Encounter Details Date Type Department Care Team (Latest Contact Info) Description 07/02/2022 Travel Social History Tobacco Use Types Packs/Day [...] 4:15 PM EDT Office Visit Dermatology at [address] [address] Marek Bonilla MD [address] [place] [address] [place] [address] 06/05/2024 11:30 AM EST Office [place] [address] Magdalena Peralta MD [facility] [place] [address] documented as of this encounter Visit Diagnoses Not on filedocumented in this encounter Care Teams Livestock Feeder Relationship Specialty Start Date End Date Deborah Quiroga APRN PCP - General Family Medicine 03/24/16 02/04/23 documented as of this encounter
--- OUTSIDE RECORDS SUMMARY | 2024-02-15 14:09 | XMS_ITS | Encounter Summary ---
Author Organization [facility] [place] [address] Care Team Providers Care Coil Connector Repairer Name Role Phone Deborah Quiroga ANURAG Primary Care Provider [phone] Encounter Details Date Type Department Care Team (Late st Contact Info) Description 01/09/2022 Refill Dermatology at [address] [address] Lupe Connor RN Social History [...] 4:15 PM EDT Office Visit Dermatology at [address] [address] Marek Bonilla MD [address] [place] [address] [place] [address] 06/05/2024 11:30 AM EST Office [place] [address] Magdalena Peralta MD [facility] [place] [address] documented as of this encounter Visit Diagnoses Not on filedocumented in this encounter Care Teams Coil Connector Repairer Relationship Specialty Start Date End Date Deborah Quiroga APRN PCP - General Family Medicine 03/24/16 02/04/23 documented as of this encounter
--- OUTSIDE RECORDS SUMMARY | 2024-02-15 14:09 | XMS_ITS | Encounter Summary ---
Author Organization [facility] [place] [address] Care Team Providers Care Grommet Worker Name Role Phone Ashley Quirogan [place] ANURAG Primary Care Provider [phone] Reason for Visit * Reason Onset Date Comments Results 12/03/2016 Encounter Details Date Type Department Care Team (Late Contact Info) Description 12/03/2016 Telephone Hematology [place] [address] Yudith Valentine RN Results Social History Tobacco Use Types Packs/Day Years [...] encounter Miscellaneous Notes * Telephone Encounter - Yudith Valentine RN - 12/03/2016 12:19 PM EDT RN received call from Maddy at [facility] reporting critical WBC at 1.61, and ANC of 0.5. She will fax the full results to this office for internal review and audit compliance notified DR Borjas of above results documented in this encounter Plan of Treatment Upcoming Encounters Date Type Department Care Team (Late st Contact Info) Description 02/22/2024 4:15 PM EDT Office Visit Dermatology at [address] [address] Marek Bonilla MD [address] [place] [address] [place] [address] 06/05/2024 11:30 AM EST Office Visit [place] [address] Magdalena Peralta MD [facility] [place] [address] documented as of this encounter Visit Diagnoses Not on filedocumented in this encounter Care Teams Grommet Worker Relationship Specialty Start Date End Date Deborah Quiroga APRN PCP - General Family Medicine 03/24/16 02/04/23 documented as of this encounter
--- OUTSIDE RECORDS SUMMARY | 2024-02-15 14:09 | XMS_ITS | Encounter Summary ---
[place] [address] Care Team Providers Care Insurance Verification Rep Name Role Phone Ashley Quirogan Cornelius ANURAG Primary Care Provider [phone] Reason for Visit * Reason Comments Acrochordon Rosacea Encounter Details Date Type Department Care Team (Late st Contact Info) Description 12/05/2020 3:00 PM EDT Office Visit Dermatology at [address] [phone] Marek Bonilla MD [address] [facility] DERMATOLOGY [place], [place] [id number] Inflamed acrochordon Social History Tobacco Use Types Packs/Day Years [...] Progress Notes * Marek Bonilla MD - 12/05/2020 3:00 PM EDT Problem: Julian Luna follows up today for treatment of 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 They are present in the axillary vaults around the base of her neck and the upper central presternal chest. Physical examination confirms the presence of the acrochordon sites noted above. Assessment plan: Acrochordons 1. The sites were anesthetized and we will electrodesiccation. 2. Posttreatment instructions given. Rosacea cutaneous with ocular rosacea 1. Patient on doxycycline 50 mg 1 p.o. daily 2. She is utilizing metronidazole 0.7% gel applying twice daily after washing 3. Return to clinic in another month for repeat check. CC: Deborah Quiroga APRN documented in this encounter Plan of Treatment Upcoming Encounters Date Type Department Care Team (Late st Contact Info) Description 02/22/2024 4:15 PM EDT Office Visit Dermatology at [place] [address] [place] [address] Marek Bonilla MD [address] [facility] [place] [address] 06/05/2024 11:30 AM EST Office [place] [address] Magdalena Peralta MD [facility] [place] [address] documented as of this encounter Visit Diagnoses Diagnosis Inflamed acrochordon Unspecified hypertrophic and atrophic condition of skin documented in this encounter Care Teams Insurance Verification Rep Relationship Specialty Start Date End Date Deborah Quiroga APRN PCP - General Family Medicine 03/24/16 02/04/23 documented as of this encounter
--- OUTSIDE RECORDS SUMMARY | 2024-02-15 14:09 | XMS_ITS | Encounter Summary ---
[place] [address] Care Team Providers Care Sod Cutter Name Role Phone Deborah Quiroga APRN Primary Care Provider [phone] Reason for Referral * Consultation (Routine) - Closed Specialty Diagnoses / Procedures Referred By Contac t Referred To Contact Rheumatology Diagnoses Positive FRANCISCO (antinuclear antibody) Arthralgia, unspecified joint Sandy Wu APRN [address] [place] [address] [facility] [address] [place] [phone] Referral ID Status Reason Start Date Expiration Date V isits Requested Visits Authorized [id number] Closed Consult, Test & Treat PCP Updated and/or Approved 01/01/2022 01/01/2023 6 6 Encounter Details Date Type Department Care Team (Latest Contact Info) Description 01/01/2022 Transcribe Orders eDH Incoming Referrals [phone] Sandy Wu APRN [address] [place], [place] [id number] Positive FRANCISCO (antinuclear antibody); Arthralgia, unspecified joint Social History Tobacco Use Types Packs/Day Years [...] 4:15 PM EDT Office Visit Dermatology at [place] [address] [place] [address] Marek Bonilla MD [address] [facility] [place] [address] 06/05/2024 11:30 AM EST Office [place] [address] Magdalena Peralta MD [facility] [place] [address] Scheduled Referrals Name Type Priority Associated Diagnoses Orde r Schedule Referral to Rheumatology Outpatient Referral Routine Positive FRANCISCO (antinuclear antibody) Arthralgia, unspecified joint Ordered: 01/01/2022 documented as of this encounter Visit Diagnoses Diagnosis Positive FRANCISCO (antinuclear antibody) Other and unspecified nonspecific immunological findings Arthralgia, unspecified joint documented in this encounter Care Teams Sod Cutter Relationship Specialty Start Date End Date Deborah Quiroga APRN PCP - General Family Medicine 03/24/16 02/04/23 documented as of this encounter
--- OUTSIDE RECORDS SUMMARY | 2024-02-15 14:09 | XMS_ITS | Encounter Summary ---
[place] [address] Care Team Providers Care Pipe Organ Mechanic Apprentice Name Role Phone Deborah Quiroga APRN Primary Care Provider [phone] Reason for Visit * Reason Comments Annual Exam Encounter Details Date Type Department Care Team (Late st Contact Info) Description 01/09/2022 3:15 PM EDT Office Visit Dermatology at [address] [address] Marek Bonilla MD [address] [facility] DERMATOLOGY [place], [place] [phone] Rosacea Social History Tobacco Use Types Packs/Day Years [...] Progress Notes * Marek Bonilla MD - 01/09/2022 3:15 PM EDT Problem: 1. Follow-up rosacea both cutaneous and ocular 2. 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 She is doing well. She is using the doxycycline taking 50 mg 1 dose every morning, and using the metronidazole 0.75% gel roughly every other day. This is working well for her. She reminds that she had a history of corneal tears previously. 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 The conjunctiva both eyelids appear to be noninjected and well moisturized. She is applying eyedrops twice a day. Assessment plan: Rosacea both cutaneous and ocular 1. Both appear to be responding well to therapy and would recommend she continue both 2. Continue doxycycline 50 mg take 1 p.o. daily in the evening may take with her atorvastatin. Specimen 90 for a 3-month supply with 3 refills. We will call this into her [facility] in [place] 3. Continue metronidazole 0.75% gel applying every other day after washing as needed. We will give her 45 g with 5 refills. 4. Return to clinic in a year for repeat check CC: Deborah Quiroga APRN documented in this encounter Plan of Treatment Upcoming Encounters Date Type Department Care Team (Late st Contact Info) Description 02/22/2024 4:15 PM EDT Office Visit Dermatology at [address] [address] Marek Bonilla MD [address] [place] [address] [place] [address] 06/05/2024 11:30 AM EST Office [place] [address] Magdalena Peralta MD [facility] [place] [address] documented as of this encounter Visit Diagnoses Diagnosis Rosacea documented in this encounter Care Teams Pipe Organ Mechanic Apprentice Relationship Specialty Start Date End Date Deborah Quiroga APRN PCP - General Family Medicine 03/24/16 02/04/23 documented as of this encounter
--- OUTSIDE RECORDS SUMMARY | 2024-02-15 14:09 | XMS_ITS | Encounter Summary ---
Author Organization [facility] Erika ló[place]ylvia [place] [address] Care Team Providers Care Social Science Research Assistant Name Role Phone Deborah Quiroga APRN Primary Care Provider [phone] Encounter Details Date Type Department Care Team (Latest Contact Info) Description 06/29/2022 Travel Social History Tobacco Use Types Packs/Day [...] PM EDT Office Visit Dermatology at [address] [address] Marek Bonilla MD [address] [place] [address] [place] [address] 06/05/2024 11:30 AM EST Office [place] [address] Magdalena Peralta MD [facility] [place] [address] documented as of this encounter Visit Diagnoses Not on filedocumented in this encounter Care Teams Social Science Research Assistant Relationship Specialty Start Date End Date Deborah Quiroga APRN PCP - General Family Medicine 03/24/16 02/04/23 documented as of this encounter
--- OUTSIDE RECORDS SUMMARY | 2024-02-15 14:09 | XMS_ITS | Encounter Summary ---
Author Organization [facility] [place] [address] Care Team Providers Care Motorcycle Subassembly Repairer Name Role Phone Ashley Quirogazac Shields APRN Primary Care Provider [phone] Reason for Referral * Consultation (Routine) - Closed Specialty Diagnoses / Procedures Referred By Contac t Referred To Contact Neurology Diagnoses Neck pain Popeye Rogers MD [facility] [place] [address] [facility] [address] [address] Referral ID Status Reason Start Date Expiration Date V isits Requested Visits Authorized [id number] Closed Consult, Test & Treat 06/29/2022 06/29/2023 1 1 Reason for Visit * Reason Comments Neck Pain Weak in both arms, p ain and tingling in arms and hands Encounter Details Date Type Department Care Team (Late st Contact Info) Description 06/29/2022 10:20 AM EST Office Visit [facility] [place] [address] Popeye Rogers MD [facility] [place] [address] Neck pain Social History Tobacco Use Types Packs/Day Years [...] Sign Reading Time Taken Comments Blood Pressure - - Pulse - - Temperature - - Respiratory Rate - - Oxygen Saturation - - Inhaled Oxygen Concentration - - Weight 87.1 kg (192 lb) 06/29/2022 9:40 AM EST Height 154.9 cm (5' 1) 06/29/2022 9:40 AM EST Body Mass Index 36.28 06/29/2022 9:40 AM EST documented in this encounter Progress Notes * Popeye Rogers MD - 06/29/2022 10:20 AM EST Chief complaint: Bilateral hand tingling and pain, neck pain History of present illness: Ms. Thacker is a 66-year-old female whom I am seeing in consultation for Dr. Farrell in regards to her neck pain and bilateral hand tingling and pain. The hand symptoms developed approximately 8 months ago and were insidious in onset. She describes neck pain for the past few weeks. She had another episode of neck pain back in the spring, though that resolved until recently. The neck pain is relatively moderate intensity worse with neck rotation. She does not have neckpain when she is sitting at rest. She denies any pain radiating down her arms from her neck. She describes numbness in all fingers in both hands other than her thumbs. She states that she writes withher left hand but does most other activities with her right hand. Both hands feel weak to her. Her hand symptoms are worse at night. She gets some relief by using wrist splints. She feels off balancewhen she first stands to get up to walk, when she gets walking her balance is okay. She can walk across a dark leg without holding onto the wall. Her hands feel somewhat clumsy to her, and she has noticed some difficulty turning the pages and blocks. She can still button her buttons. She feels as though her handwriting may have changed slightly. She has difficulty opening jars. She denies constitutional symptoms or change in her bowel or bladder function. She takes Advil for her neck pain that is helpful. She has not had physical therapy or prior cervical injections. She has not had prior cervical surgery. Past medical history: Raynaud's syndrome, borderline diabetes, knee arthritis, hypertension, thyroid nodules, sleep apnea, depression Past surgical history: Aortic valve replacement, cholecystectomy, breast biopsy Medications and allergies were reviewed and are in E DH. Family history: Diabetes, heart disease Social history: She is retired. She does not smoke or drink. Review of systems: All negative except musculoskeletal as above. Physical exam Patient is 5 foot 1, 191 pounds, with a BMI of 36.2 General: Patient is comfortable, no acute distress Neck: Her neck is nontender to palpation. She can flex 20 degrees, extend 30 degrees, rotate 40 degrees, and side bend 15 degrees. Neurological exam: She walks with normal gait. She has mild difficulty with tandem gait. Motor examreveals 5/5 strength of all upper extremity motors. She has normal sensory exam. Reflexes are 3/4 in the upper extremities, 3/4 at the knees, 2/4 at the ankles. Spurling's is negative bilaterally. She has a positive Arabella sign on the right. She has no clonus. Median nerve compression test and Tinel's test at the cubital tunnels are negative bilaterally. Shoulder exam: She has positive impingement signs on the right. Vascular exam: She has palpable radial pulses bilaterally. Imaging: AP and lateral x-rays of the cervical spine from 06/08/2022 were reviewed. This showed degenerative changes most pronounced at C5-C6 and C6-C7 with marked disc height loss and anterior and posterior osteophytes. MRI of the cervical spine from 06/17/2022 was reviewed. At C3-C4, there is moderate to severe bilateral foraminal narrowing. At C4-C5, there is moderate right-sided foraminal narrowing. At C5-C6, there is a broad-based disc osteophyte that causes mild canal narrowing but no significant cord compression. There is relatively severe right-sided foraminal narrowing at this level. At C6- C7, there is abroad-based disc osteophyte that does not cause significant cord or nerve root compression. Assessment/plan: Ms. Abreu is a 66-year-old female who presents with about 8 months of waxing and waning neck pain as well as bilateral hand tingling and pain affecting all digits other than her thumbs. Her neurological exam is relatively normal other than hyperreflexia and a positive Arabella sign on the right. I do not see significant spinal cord compression on her cervical MRI to explain the symptoms. As such, I do not believe she has cervical myelopathy. The cause of her symptoms and abnormal findings on neurological exam is not clear to me. As such, I have made a referral to neurologyfor further evaluation. She reports that she did have EMG and nerve conduction studies in [place] that showed carpal tunnel syndrome. I do not have a copy of that report. documented in this encounter Plan of Treatment Upcoming Encounters Date Type Department Care Team (Late st Contact Info) Description 02/22/2024 4:15 PM EDT Office Visit Dermatology at [address] [place] [address] Marek Bonilla MD [address] [facility] [place] [address] 06/05/2024 11:30 AM EST Office [place] [address] Magdalena Peralta MD [facility] [place] [address] Scheduled Referrals Name Type Priority Associated Diagnoses Orde r Schedule Referral to Neurology Outpatient Referral Routine Neck pain Ordered: 06/29/2022 documented as of this encounter Visit Diagnoses Diagnosis Neck pain Cervicalgia documented in this encounter Care Teams Motorcycle Subassembly Repairer Relationship Specialty Start Date End Date Deborah Quiroga APRN PCP - General Family Medicine 03/24/16 02/04/23 documented as of this encounter
--- OUTSIDE RECORDS SUMMARY | 2024-02-15 14:09 | XMS_ITS | Encounter Summary ---
Author Organization [facility] Erika lópezsylvia [place] [address] Care Team Providers Care Beach Expert Name Role Phone Deborah Quiroga APRN Primary Care Provider [phone] Encounter Details Date Type Department Care Team (Latest Contact Info) Description 06/22/2022 Travel Social History Tobacco Use Types Packs/Day [...] 4:15 PM EDT Office Visit Dermatology at [address] [address] Marek Bonilla MD [address] [place] [address] [place] [address] 06/05/2024 11:30 AM EST Office Visit [place] [address] Magdalena Peralta MD [facility] [place] [address] documented as of this encounter Visit Diagnoses Not on filedocumented in this encounter Care Teams Beach Expert Relationship Specialty Start Date End Date Deborah Quiroga APRN PCP - General Family Medicine 03/24/16 02/04/23 documented as of this encounter
--- OUTSIDE RECORDS SUMMARY | 2024-02-15 14:09 | XMS_ITS | Encounter Summary ---
[place] [address] Care Team Providers Care Network Specialist Name Role Phone Deborah Quiroga APRN Primary Care Provider [phone] Encounter Details Date Type Department Care Team (Late st Contact Info) Description 06/05/2021 Interpretation Only [address] [phone] Deborah Quiroga APRN [address] [address] Social History Tobacco Use Types Packs/Day Years [...] PM EDT Office Visit Dermatology at [address] [place] [address] Marek Bonilla MD [address] [facility] [place] [address] 06/05/2024 11:30 AM EST Office [place] [address] Magdalena Peralta MD [facility] [place] [address] documented as of this encounter Procedures Procedure Name Priority Date/Time Associated Diagnosis Comments DXA CENTRAL SPINE, HIP, AND/OR WHOLE BODY (GENERIC) Routine 06/05/2021 11:58 AM EDT documented in this encounter Results * DXA Central Spine, Hip, and/or Whole Body (Generic) (06/05/2021 11:58 AM EDT) PT CLASS O RAD ADMITDTTM RAD PT RAD INFO [id number]^E VERETT^DEBORAH ^E RAD EXAM DESC XDXAC^DEXA SCAN [...] who have questions please contact the health personal care home administrator that requested your imaging first. ? [...] patients who have questions please contactthe health personal care home administrator that requested your imaging first. Deborah Quiroga APRN IMGerman DEXA ORDERABLES documented in this encounter Visit Diagnoses Not on filedocumented in this encounter Care Teams Network Specialist Relationship Specialty Start Date End Date Deborah Quiroga APRN PCP - General Family Medicine 03/24/16 02/04/23 documented as of this encounter
--- OUTSIDE RECORDS SUMMARY | 2024-02-15 14:09 | XMS_ITS | Encounter Summary ---
Author Organization [facility] Address [facility] [place] [address] Care Team Providers Care Brake [address] Freight Name Role Phone Deborah Quiroga APRN Primary Care Provider [phone] Encounter Details Date Type Department Care Team (Late st Contact Info) Description 03/01/2020 11:30 AM EDT Office Visit Hematology and Oncology at [facility] [place] [phone] Patrick Borjas MD [facility] [place] [address] Neutropenia, unspecified type Social History Tobacco Use [...] Sign Reading Time Taken Comments Blood Pressure 140/74 03/01/2020 11:28 AM EDT Pulse 73 03/01/2020 11:28 AM EDT Temperature 36.4 ??C (97.5 ??F) 03/01/2020 1 1:28 AM EDT Respiratory Rate - - Oxygen Saturation 99% 03/01/2020 11: 28 AM EDT Inhaled Oxygen Concentration - - Weight 106.1 kg (233 lb 12.8 oz) 2019 11:28 AM EDT shoes on Height 156 cm (5' 1.42) 03/01/2020 11: 28 AM EDT shoes on Body Mass Index 43.58 03/01/2020 11:28 AM EDT documented in this encounter Progress Notes * Patrick Borjas MD - 03/01/2020 11:30 AM EDT Hematology Outpatient Clinic [facility] Hematology Outpatient Consult Note CC: 60 year [...] TOUCH PREP, CLOT SECTION, CORE ??BIOPSY); [OSR# [id number], COLLECTED 06/23/2016, 19 SLIDES]: ?1. ??Normocellular marrow [...] a clonal lymphoproliferative or myeloproliferative disorder (OSR# [id number]) Chromosome analysis on the marrow aspirate revealed a normal female karyotype; ?? 46,XX ?? PB Flow- DIAGNOSIS 1. No increased or abnormal immunophenotype T/NK/LGL or monoclonal B-cell ??populations identified. 2. No increased blast population present (see Discussion). INTERIM HISTORY Pt here for follow up. She has been OK. She has been getting progressively more winded with exertion. She is undergoing cardiac work up. No fevers/ chills/ night sweat/ bleeding/ bruising. No infections. No hospitalizations. Past Medical/Surgical History: 1. Leukopenia -element of neutropenia, as noted above 2. Aortic Stenosis -severe -AVR surgery 3. Hypercholesterolemia 4. Depression 5. Hypertension 6. 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 losartan (Cozaar) 25 mg Tablet Yes acetaminophen (TYLENOL) 500 mg Tablet Take [...] by mouth daily. Yes buPROPion (WELLBUTRIN SR) 150 mg 12 hr tablet Take 150 mg by mouth 2 times daily. Yes aspirin 81 mg EC tablet Take 81 mg by mouth daily. Yes buPROPion (WELLBUTRIN SR) 100 mg Tablet Sustained Release Take 100 mg by mouth every evening. Allergies: Reviewed in eD-H Review of Systems Besides what is mentioned in HPI, all other systems are negative Physical Exam: Patient Vitals for the past 24 hrs: Temp Pulse BP SpO2 03/01/20 1128 36.4 ??C (97.5 ??F) 73 140/74 99 % Gen: Well-appearing woman, conversant and in no acute distress. HEENT: Sclerae anicteric; no oropharyngeal lesions. Neck: Supple; no palpable thyromegaly. Lungs: Clear to auscultation. Cardiovascular: Normal rate and regular rhythm; grade III/ HS murmur. Abd: Benign, without palpable hepatosplenomegaly. Lymphatics: No palpable lymphadenopathy. Skin: No jaundice, rash, ecchymoses or petechiae. Neuro: Grossly intact. Extremities: No edema. Labs: Hgb= 12.4 Zjoq=[id number] ANC= 2.5 Imaging As above - reviewed [...] 8 days after receiving neulasta. Ms Thacker had idiopathic neutropenia, which has now resolved. The only real change from 2017 was stopping lisinopril which has a very low rate of causing neutropenia, but perhaps this change was the cause. No infections. Asymptomatic. I would continue to follow. No further work up is necessary, especially since blood work is normal now. I do not think her blood abnormalities are contributing to her SOB/ BONILLA. Agree with cardiac w/u that is ongoing. We discussed management. One option would be [...] I would advise the use of GCSF. Patrick Borjas MD documented in this encounter Miscellaneous Notes * Addendum Note - Patrick Borjas MD - 03/01/2020 11:30 AM EDTAddended by: PATRICK BORJAS on: 03/01/2020 12:23 PM Modules accepted: Orders documented in this encounter Plan of Treatment Upcoming Encounters Date Type Department Care Team (Late st Contact Info) Description 02/22/2024 4:15 PM EDT Office Visit Dermatology at [address] [place] [address] Marek Bonilla MD [address] [facility] [place] [address] 06/05/2024 11:30 AM EST Office [place] [address] Magdalena Peralta MD [facility] DR [place]UM[place]OLOGY [place] [address] documented as of this encounter Visit Diagnoses Diagnosis Neutropenia, unspecified type documented in this encounter Care Teams [address] Freight Relationship Specialty Start Date End Date Deborah Quiroga APRN PCP - General Family Medicine 03/24/16 02/04/23 documented as of this encounter
--- OUTSIDE RECORDS SUMMARY | 2024-02-15 14:09 | XMS_ITS | Encounter Summary ---
[place] [address] Care Team Providers Care Cage Manager Name Role Phone Ashley Quirogazac Shields APRN Primary Care Provider [phone] Reason for Visit * Reason Comments Skin Check Encounter Details Date Type Department Care Team (Late st Contact Info) Description 11/11/2020 10:45 AM EDT Office Visit Dermatology at [address] [phone] Marek Bonilla MD [address] [facility] DERMATOLOGY [place], [place] [id number] Rosacea; Acrochordon Social History Tobacco Use Types Packs/Day Years [...] Progress Notes * Marek Bonilla MD - 11/11/2020 10:45 AM EDT Problem: Cheryl follows up after last seeing me in about 1995. She is concerned about a lesion on her forehead and intact around her neck. She is an skin tag under her left arm and between her breasts. Physical examination reveals a pleasant 65 woman who has mild telangiectatic and mild papular rosacea. She has ocular rosacea. She has skin tags present around the base of her neck under the left karol between her breasts. The left forehead lesion began some 6 months ago and felt like a rough bumpy area but this is peeled off while waiting for today's appointment. Is almost totally resolved at present Assessment and plan: Cutaneous rosacea with ocular rosacea 1. Begin doxycycline 50 mg 1 p.o. daily dispense #30 with 1 refill 2. Begin the metronidazole 0.75% gel apply to face twice daily after washing with water or soap substitute. Dispense 45 g with 5 refills 3. Discussed the possibility of getting this through [facility] or from the [facility] pharmacy if necessary. She has not yet used her new Medicare prescription plan. Tags 1. We will schedule 15-minute appointment for removal of these in the next 3 to 4 weeks. Left forehead keratosis 1. Reassess when I see her again and consider liquid nitrogen if appropriate. CC: Deborah Quiroga APRN documented in this encounter Plan of Treatment Upcoming Encounters Date Type Department Care Team (Late st Contact Info) Description 02/22/2024 4:15 PM EDT Office Visit Dermatology at [address] [address] Marek Bonilla MD [address] [place] [address] [place] [address] 06/05/2024 11:30 AM EST Office [place] [address] Magdalena Peralta MD [facility] [place] [address] documented as of this encounter Visit Diagnoses Diagnosis Rosacea Acrochordon Unspecified hypertrophic and atrophic condition of skin documented in this encounter Care Teams Cage Manager Relationship Specialty Start Date End Date Deborah Quiroga APRN PCP - General Family Medicine 03/24/16 02/04/23 documented as of this encounter
--- OUTSIDE RECORDS SUMMARY | 2024-02-15 14:09 | XMS_ITS | Encounter Summary ---
[place] [address] Care Team Providers Care Food Service Attendant Name Role Phone Deborah Quiroga APRN Primary Care Provider [phone] Encounter Details Date Type Department Care Team (Late st Contact Info) Description 06/05/2021 Interpretation Only [address] [phone] Deborah Quiroga APRN [address] [address] Social History Tobacco Use Types Packs/Day Years [...] 4:15 PM EDT Office Visit Dermatology at [address] [place] [address] Marek Bonilla MD [address] [facility] [place] [address] 06/05/2024 11:30 AM EST Office [place] [address] Magdalena Peralta MD [facility] [address] documented as of this encounter Procedures Procedure Name Priority Date/Time Associated Diagnosis Comments MAMMO SCREENING CAD AND CATRACHITO BILATERAL Routine 06/05/2021 11:42 AM EDT documented in this encounter Results * Mammo Screening Cad and Catrachito Bilateral (06/05/2021 11:42 AM EDT) PT CLASS O DH RAD ADMITDTTM DH RAD PT DH RAD MD INFO [phone]^EVERET T^DEBORAH^E DH RAD EXAM DESC MADDSCTO^BREAST SCREEN TOMOSYNTHESIS BI^RIS DH RAD Anatomical Region Laterality Modality Breast [...] who have questions please contact the health animal care assistant that requested your imaging first. ? Electronically signed by: Rocael Villatoro MD, [facility] ([phone]), at 06/05/2021 1:27 PM Narrative 06/05/2021 1:27 [...] patients who have questions please contactthe health animal care assistant that requested your imaging first. Electronically signed by: Rocael Villatoro MD, [facility]([phone]), at 06/05/2021 1:27 PM Deborah Quiroga APRN IMG MAMMO ORDERABLE S documented in this encounter Visit Diagnoses Not on filedocumented in this encounter Care Teams Food Service Attendant Relationship Specialty Start Date End Date Deborah Quiroga APRN PCP - General Family Medicine 03/24/16 02/04/23 documented as of this encounter
--- OUTSIDE RECORDS SUMMARY | 2024-02-15 14:09 | XMS_ITS | Encounter Summary ---
[place] [address] Care Team Providers Care Chief Controller Station Name Role Phone JunaidDeborah APRN Primary Care Provider [phone] Reason for Visit * Reason Comments Follow-up Encounter Details Date Type Department Care Team (Late st Contact Info) Description 01/10/2021 4:30 PM EDT Office Visit Dermatology at [address] [address] Marek Bonilla MD [address] [facility] DERMATOLOGY [place], [place] [id number] Rosacea Social History Tobacco Use Types Packs/Day [...] Progress Notes * Marek Bonilla MD - 01/10/2021 4:30 PM EDT Problem: 1. Follow-up rosacea both cutaneous and ocular 2. Previously told by gym attendant that she had corneal tears from her rosacea and was told to use eyedrops twice daily Cheryl follows up after last being seen December 05. She is tolerating the doxycycline well which she been taking since November 11, and is pleased with the way the metronidazole is using 0.75% gel that she is applying once daily in the mornings after washing. The acrochordon was treated last visit and on December 05 of healed well. She reminds that she has never had any ocular rosacea type symptoms, her reported corneal tears were asymptomatic. Physical examination reveals a pleasant 65-year-old woman who has significantly fading of the telangiectatic rosacea of the cheeks and chin. While still present it is improved. Likewise the conjunctiva of both lower eyelids appear to be noninjected well moisturized. There is good moisture level present. The last time she applied any eyedrops was this morning! Assessment plan: Rosacea both cutaneous and ocular 1. Both apparently responding well to therapy 2. Continue doxycycline 50 mg 1 p.o. daily on an ongoing basis. Dispense number 90 for a 3-month supply with 3 refills. Will call this in her [facility] pharmacy in [place] 3. Continue metronidazole 0.75% gel applying once daily after washing in the mornings. She was given already 45 g with 5 refills which will last her until next year likely does not need a refill today. 4. Return to clinic in 1 year for repeat check. CC: Deborah Quiroga APRN documented in this encounter Plan of Treatment Upcoming Encounters Date Type Department Care Team (Late st Contact Info) Description 02/22/2024 4:15 PM EDT Office Visit Dermatology at [address] [address] Marek Bonilla MD [address] [place] [address] [place] [address] 06/05/2024 11:30 AM EST Office [place] [address] Magdalena Peralta MD [facility] [place] [address] documented as of this encounter Visit Diagnoses Diagnosis Rosacea documented in this encounter Care Teams Chief Controller Station Relationship Specialty Start Date End Date Deborah Quiroga APRN PCP - General Family Medicine 03/24/16 02/04/23 documented as of this encounter
--- OUTSIDE RECORDS SUMMARY | 2024-02-15 14:09 | XMS_ITS | Encounter Summary ---
[place] [address] Care Team Providers Care College And Career Counselor Name Role Phone Deborah Quiroga Cornelius OSBORN Primary Care Provider [phone] Encounter Details Date Type Department Care Team (Late st Contact Info) Description 01/13/2021 Refill Dermatology at [address] [phone] Taylor Malone, MAP COMPILER Social History Tobacco Use Types Packs/Day Years [...] PM EDT Office Visit Dermatology at [address] [address] Marek Bonilla MD [address] [place] [address] [place] [address] 06/05/2024 11:30 AM EST Office [place] [address] Magdalena Peralta MD [facility] [address] [place] [address] documented as of this encounter Visit Diagnoses Not on filedocumented in this encounter Care Teams College And Career Counselor Relationship Specialty Start Date End Date Deborah Quiroga APRN PCP - General Family Medicine 03/24/16 02/04/23 documented as of this encounter
--- OUTSIDE RECORDS SUMMARY | 2024-02-15 14:09 | XMS_ITS | Encounter Summary ---
Author Organization [facility] Address [facility] [place] [address] Care Team Providers Care Fish Salter Name Role Phone Junaid Deborah Shields APRN Primary Care Provider [phone] Encounter Details Date Type Department Care Team (Latest Contact Info) Description 06/22/2022 10:00 AM EST Office [place] [address] Raymond Loredo MD [facility] [place] [address] Raynaud's phenomenon without gangrene; Positive FRANCISCO (antinuclear antibody); Primary osteoarthritis involving multiple joints; Cervical disc disorder at C6-C7 level with radiculopathy Social History Tobacco Use Types Packs/Day Years [...] Sign Reading Time Taken Comments Blood Pressure 144/58 06/22/2022 9:48 AM EST Pulse 86 06/22/2022 9:48 AM EST Temperature 36 ??C (96.8 ??F) 06/22/2022 9:48 AM EST Respiratory Rate - - Oxygen Saturation 100% 06/22/2022 9:48 AM EST Inhaled Oxygen Concentration - - Weight 87 kg (191 lb 12.8 oz) 06/22/2022 9:48 AM EST Height 154.9 cm (5' 1) 06/22/2022 9:48 AM EST Body Mass Index 36.24 06/22/2022 9:48 AM EST documented in this encounter Progress Notes * Raymond Loredo MD - 06/22/2022 10:00 AM EST Rheumatology Staff Note Ms. Thacker is a 66-year-old woman who was referred in December 2021 for positive FRANCISCO of 1-1280 in the context of metoprolol therapy, prompting the question of lupus given reports of polyarthralgia. My assessment at that time was: 1. Knee osteoarthritis right greater than left leading to difficulty getting up from a chair and doing stairs. We discussed the importance of knee strengthening exercises 2. Despite a positive blood test for lupus (FRANCISCO) there is nothing in her exam to suggest an inflammatory polyarthritis, lupus skin disease, or any major organ dysfunction. 3. Raynaud's the patient is not experiencing [...] can be done locally or [place] [facility] [place] the current time is not particularly interested it seems Interval history: 1. Patient had repeat lupus testing was found to have an FRANCISCO of 1-2560 even though she has been offmetoprolol for several months. SSA and SSB autoantibodies were negative. She wonders why that mightbe and why does not that mean she has lupus that is unrelated to her metoprolol? She also relates worsening anemia which her primary care doctor thinks is potentially related to lupus. Patient reports no change in her Raynaud's, no digital ulceration, no respirophasic pain, no nelsy arthritis, and no skin rash. 2. Knee OA symptoms with difficulty raising from the chair apparently she was being evaluated for her carpal tunnel syndrome and her weakness getting out of a chair was noted as possible evidence of long track signs. She underwent an MRI which apparently shows disc compression at 3 levels in her lower cervical spine. She is now being evaluated for surgery by Dr. Rogers here at [facility]. In addition to painful dysesthesias in her upper extremity which were previously considered to be manifestationsof carpal tunnel syndrome, she also notices toe tingling without any involvement of the proximal foot. Notably she also notes waxing and waning in her ability to get out of a chair without using her hands. History of present illness: The patient is [...] rubor, edema, rash or nailfold capillary dropout Neck-moves with little splinting or pain minor decrease in range of motion. No provoking of symptoms with rotation or lateral flexion. Shoulders: FROM, no AC/subacromial tenderness. Elbows: Full motion, no joint or epicondylar swelling or tenderness. Wrists: Full motion, no swelling, no warmth, no tenderness over radiocarpal or ulnocarpal joints. Hands: Normal education rn and claw. SJC/TJC 0/0. Knees: Decreased flexion on the right to approximately 90 degrees versus 120 degrees on the left. Able to rise using her hands Neuro: No focal weakness, normal sensation, no opponens pollicis weakness Assessment and plan: At the current time approximately 15 million patients in the [place] have positive ANAs. Of those patients that have a positive FRANCISCO the incidence of lupus is approximately 1 in 200- to 1: 500 depending on your ethnic background. The classical manifestation of lupus is musculocutaneous diseasemeaning that the patient has a rash or joint involvement. There are no clinical findings to supportthis diagnosis. A twofold change in FRANCISCO testing is meaningless even in the context of defined lupusrather than someone with a positive FRANCISCO as is seen here. Furthermore, drug-induced lupus it usuallytakes years if not decades for positive FRANCISCO to disappear. Thus the presence of a persistent FRANCISCO in the context of holding the suspicious drug for several months is meaningless. Moreover if the patient has anemia as this patient reported today is much more likely that it is being caused by most common reasons (iron deficiency blood loss etc.) then any relationship to the alleged drug (metoprolol) or lupus itself. At the current time, the patient is being evaluated for cervical myelopathy and its possible contribution to upper extremity dysesthesias as well as the lower extremity weakness manifested by difficulty getting out of a chair. I still think it is more likely that her difficulty getting out of the chair is related to knee osteoarthritis and this is easily testable by steroid + local anesthetic injection. Parenthetically she reports toes dysesthesias which could be a manifestation of this sensorypolyneuropathy. Should the patient wish to have her knees injected as a diagnostic and therapeutic assessment of her lower extremity weakness she knows that she can just reach out through my and I will arrange. Level 5 follow-up Raymond Loredo MD documented in this encounter Plan of Treatment Upcoming Encounters Date Type Department Care Team (Late st Contact Info) Description 02/22/2024 4:15 PM EDT Office Visit Dermatology at [place] [address] [place] [address] Marek Bonilla MD [address] [facility] [place] [address] 06/05/2024 11:30 AM EST Office [place] [address] Magdalena Peralta MD [facility] [place] [address] documented as of this encounter Visit Diagnoses Diagnosis Raynaud's phenomenon without gangrene Positive FRANCISCO (antinuclear antibody) Other and unspecified nonspecific immunological findings Primary osteoarthritis involving multiple joints Cervical disc disorder at C6-C7 level with radiculopathy documented in this encounter Care Teams Fish Salter Relationship Specialty Start Date End Date Deborah Quiroga APRN PCP - General Family Medicine 03/24/16 02/04/23 documented as of this encounter
--- OUTSIDE RECORDS SUMMARY | 2024-02-15 14:09 | XMS_ITS | Encounter Summary ---
Author Organization [facility] Address [facility] [place] [address] Care Team Providers Care Echocardiography Radiology Technologist Name Role Phone Junaid Deborah Shields APRN Primary Care Provider [phone] Encounter Details Date Type Department Care Team (Latest Contact Info) Description 10/14/2016 - 10/14/2016 11:59 PM EDT Hospital Encounter Radiology [place] [address] Alirio Esparza MD [facility] DR CARDIOTHORACIC [place] [address] Pain Discharge Disposition: Home Social History Tobacco Use [...] Sig Dispensed Refills Start Date End Date acetaminophen (TYLENOL) 500 mg Tablet Take 2 [...] tablet Take 81 mg by mouth daily. oxyCODONE (ROXICODONE) 5 mg Tablet Take 1 tablet by mouth every 4 hours as needed for Pain (Take 5mg every 4 hours for pain 6-10/10 as needed.) for up to 30 days. 40 tablet 09/25/2016 10/20/2016 senna-docusate (PERICOLACE) 8.6-50 mg Tablet Take 1 tablet by mouth daily. 30 tablet 09/25/2016 10/20/2016 spironolactone (ALDACTONE) 25 mg Tablet Take 0.5 tablets by mouth daily. 10/03/2016 05/22/2023 meTOPROLOL tartrate (LOPRESSOR) 25 mg Tablet Take 25 mg by mouth 2 times daily. 02/05/2023 buPROPion (WELLBUTRIN SR) 100 mg Tablet Sustained Release Take 100 mg by mouth every evening. 11/11/2020 buPROPion (WELLBUTRIN SR) 150 mg 12 hr tablet Take 150 mg by mouth 2 times daily. 12/13/2013 01/09/2022 documented as of this encounter Plan of Treatment Upcoming Encounters Date Type Department Care Team (Late st Contact Info) Description 02/22/2024 4:15 PM EDT Office Visit Dermatology at [address] [place] [address] Marek Bonilla MD [address] [facility] [place] [address] 06/05/2024 11:30 AM EST Office Visit [place]ology [place] [address] Magdalena Peralta MD [facility] [place] [address] documented as of this encounter Procedures Procedure Name Priority Date/Time Associated Diagnosis Comments FILM LIBRARY STORAGE ONLY DX CHEST Routine 10/14/2016 12:00 AM EDT Pain documented in this encounter Results * Film Library- Storage Only DX Chest (10/14/2016 12:00 AM EDT) Narrative [facility] - 10/14/2016 5:16 PM EDT This exam is for storage only and is auto-finalizing. Alirio Esparza MD IMG FILM LIBRARY OR DERABLES [place], [place] documented in this encounter Visit Diagnoses Diagnosis Pain Generalized pain documented in this encounter Care Teams Echocardiography Radiology Technologist Relationship Specialty Start Date End Date Deborah Quiroga, SENIOR STRATEGY MANAGER PCP - General Family Medicine 03/24/16 02/04/23 documented as of this encounter
--- OUTSIDE RECORDS SUMMARY | 2024-02-15 14:09 | XMS_ITS | Encounter Summary ---
Author Organization [facility] [place] [address] Care Team Providers Care Cement Cutter Name Role Phone Junaid Deborah Shields APRN Primary Care Provider [phone] Encounter Details Date Type Department Care Team (Late st Contact Info) Description 03/04/2020 External Results [place]ology [place] [address] ThershaniquexBhumi Social History Tobacco Use Types Packs/Day Years [...] 4:15 PM EDT Office Visit Dermatology at [address] [place] [address] Marek Bonilla MD [address] [facility] [place] [address] 06/05/2024 11:30 AM EST Office [place] [address] Magdalena Peralta MD [facility] [place] [address] documented as of this encounter Procedures Procedure Name Priority Date/Time Associated Diagnosis Comments LIPID PANEL (NO REFLEX) Routine 02/28/2020 7:45 AM EDT CBC (WITH DIFF) Routine 02/28/2020 7:45 AM EDT COMPREHENSIVE METABOLIC PANEL (NON-FASTING) Routine 02/28/2020 7:45 AM EDT documented in this encounter Results * (ABNORMAL) Lipid Panel (No Reflex) (02/28/2020 7:45 AM EDT) Chol, Total 179 <200 EXTERNAL LAB Triglycerides 254(PAINTER INTERIOR FINISH AL/ABN) <150 EXTERNAL LAB HDL 50 40 - 60 EXTERNAL LAB LDL Cholesterol 79 <100 EXTERNAL LAB Blood specimen (specimen) 02/28/2020 7:45 AM EDT Historical Provider MD CHEMISTRY ORDERAB LES Performing Organization Address City/[facility]/ZIP Co de Phone Number EXTERNAL LAB * (ABNORMAL) Comprehensive metabolic panel (non-fasting) (02/28/2020 7:45 AM EDT) Glucose Lvl 109(PAINTER INTERIOR FINISH AL/ABN) 74 - 106 EXTERNAL LAB BUN 16 7 - 18 EXTERNAL LAB Creatinine 1.02 0.55 - 1.02 EXTERNAL LAB Estimated GFR 54.56(EXTE RNAL/ABN) EXTERNAL LAB Sodium 142 135 - 145 EXTERNAL LAB Potassium 4.2 3.5 - 5.1 EXTERNAL LAB Chloride 106 98 - 107 EXTERNAL LAB CO2 25 21.0 - 32.0 EXTERNAL LAB Calcium 8.9 8.5 - 10.1 EXTERNAL LAB Total Protein 7.3 6.4 - 8.2 EXTERNAL LAB Albumin 3.5 3.4 - 5.0 EXTERNAL LAB Total Bilirubin 0.2 0.2 - 1.0 EXTERNAL LAB Alk Phos 111 46 - 116 EXTERNAL LAB AST 19 15 - 37 EXTERNAL LAB ALT 28 14 - 59 EXTERNAL LAB Blood specimen (specimen) 02/28/2020 7:45 AM EDT Historical Provider MD CHEMISTRY ORDERAB LES Performing Organization Address City/[facility]/ZIP Co de Phone Number EXTERNAL LAB * (ABNORMAL) CBC (with Diff) (02/28/2020 7:45 AM EDT) WBC 3.51(EXTER NAL/ABN) 4.4 - 10.8 EXTERNAL LAB Hemoglobin 12.4 11.2 - 15.7 EXTERNAL LAB Hematocrit 36.3 36.0 - 46.0 EXTERNAL LAB Platelets 182 130 - 400 EXTERNAL LAB Neutr Abs (ANC) 2.24 1.2 - 6.7 EXTERNAL LAB Lymphocyte Abs 0.95(EXTER NAL/ABN) 1.2 - 3.4 EXTERNAL LAB Blood specimen (specimen) 02/28/2020 7:45 AM EDT Historical Provider HEMATOLOGY KITA SUÁREZ EXTERNAL LAB documented in this encounter Visit Diagnoses Not on filedocumented in this encounter Care Teams Cement Cutter Relationship Specialty Start Date End Date Deborah Quiroga, PLANT PULLER PCP - General Family Medicine 03/24/16 02/04/23 documented as of this encounter
--- OUTSIDE RECORDS SUMMARY | 2024-02-15 14:10 | XMS_ITS | Encounter Summary ---
Author Organization [facility] [place] [address] Care Team Providers Care Handle Maker Name Role Phone Deborah Quiroga APRN Primary Care Provider [phone] Encounter Details Date Type Department Care Team (Late st Contact Info) Description 08/18/2016 Orders [place] [phone] Alirio Esparza MD [facility] DR CARD[place]AC[place] [address] Aortic valve stenosis, unspecified etiology Social History Tobacco Use Types Packs/Day Years [...] 4:15 PM EDT Office Visit Dermatology at [address] [place] [phone] Marek Bonilla MD [address] [facility] [place] [address] 06/05/2024 11:30 AM EST Office [place] [phone] Magdalena Peralta MD [facility] [place] [address] documented as of this encounter Results * Basic Metabolic Panel (non-fasting) (08/18/2016 4:50 PM EST) Glucose Lvl 82 65 - 199 mg/dL [facility] Comment:Diabetes: >=200 mg/d L plus symptoms BUN 12 8 - 18 mg/dL [facility] Creatinine 0.87 0.70 - 1.20 mg/dL [facility] Comment: Please note that the pediatric reference intervals supplied above were not validated at [facility]. Results from pediatric patients should be interpreted in conjunction to the patient's age, height and muscle mass. Sodium 142 135 - 145 mmol/L [facility] Potassium 3.8 3.5 - 5.0 mmol/L [facility] Comment: Please note: ??Patients with WBC >100,000 may have falsely elevated Potassium levels. ??For accurate Potassium quantification in these patients send serum separator tube (gold top) for subsequent determinations. ??Contact the Clinical Chemistry Laboratory if there are any questions. Chloride 102 98 - 107 mmol/L [facility] CO2 26 22 - 31 mmol/L [facility] Anion Gap 14 5 - 15 mmol/L [facility] Calcium 9.7 8.5 - 10.5 mg/dL [facility] Estimated GFR >60 >=60 [facility] Comment: This estimated GFR (eGFR) value was calculated using the MDRD equation which has been validated on patients between the ages of 18 and 70. The MDRD should not be used to assess kidney function in patients < 18 years of age or in patients with extremes of body mass, or in patients with acute kidney failure. This value should be multiplied by 1.2 for patients. For further information please copy and paste the following links into your internet browser. [email or web address] Blood specimen (specimen) 08/18/2016 4:50 PM EST 08/18/2016 5:03 PM EST Narrative Resulting Agency Comment Spec In Lab Alirio Esparza MD CHEMISTRY ORDERABLE S [facility] [place] [address] documented in this encounter Visit Diagnoses Diagnosis Aortic valve stenosis, unspecified etiology documented in this encounter Care Teams Handle Maker Relationship Specialty Start Date End Date Deborah Quiroga, POPCORN VENDOR PCP - General Family Medicine 03/24/16 02/04/23 documented as of this encounter
--- OUTSIDE RECORDS SUMMARY | 2024-02-15 14:10 | XMS_ITS | Encounter Summary ---
Author Organization [facility] [place] [address] Care Team Providers Care Log Rider Name Role Phone Junaid, Deborah Shields APRN Primary Care Provider [phone] Reason for Visit * Auth/Cert Specialty Diagnoses / Procedures Referred By Crispin t Referred To Contact Diagnoses Aortic stenosis Procedures PRO REPLACE AORT VALV, PROSTH VALV @REPLACE AORTIC VALVE, OPEN, W\CPB, W\PROSTHETIC VALVE (WRVU 41.32) Referral ID Status Reason Start Date Expiration Date Visits Re quested Visits Authorized [id number] 1 1 Encounter Details Date Type Department Care Team (Late st Contact Info) Description 09/21/2016 7:25 AM EST Anesthesia Event [place] [address] Luis Enrique Quarles MD [facility] [address] [place] [address] Henrik Cooper MD [facility] DR ANESTHESIOLOGY [place] [address] Anesthesia Record Procedure Summary Procedure Name Responsible Anesthesiologist Anesthesia Start Time Anesthesia Stop Time @REPLACE AORTIC VALVE, OPEN, W\CPB, W\PROSTHETIC VALVE (WRVU 41.32) (Chest) Luis Enrique Quarles MD 09/21/16 0725 09/21/16 1152 Events Date Time Event Comment 09/21/2016 0725 Start 0727 AN Verify 0727 An Start Data 0743 An Induction 0745 An Intubation 0747 YUSRA PROBE ONLY 0800 Anesthesia Ready 0819 Sternotomy 0844 CV Bypass init 1009 Wash Tub Machine Operator 1014 An Clamp Remove 1031 CP Bypass Ended 1041 Protamine 1108 Chest Closed 1129 Quick Note YUSRA removed no blood noted 1150 an stop data 1151 Recovery or ICU Handoff Perla ent care was transferred to the destination unit staff after review of the patient's medical history, current anesthetic/surgical status and plan, according to the Provider Handoff Checklist. 1152 Stop 09/23/2016 1130 Meds Name Total Midazolam 5 mg fentaNYL 1,000 mcg Propofol 90 mg Vecuronium 15 mg Heparin 19,000 Units Protamine 1,700 mg Tranexamic Acid 980 mg Tranexamic Acid INF 335.78 mg Insulin Regular Human 5 Units Insulin Regular INF 10 Units cefUROXime (ZINACEF) injection 1.5 g 3 g Vancomycin 1 g NORepinephrine INF 534 mcg AMIOdarone 150 mg AMIOdarone (CORDARONE) 450 mg in dextros e 5% 250 mL infusion 1 mg desmopressin (DDAVP) injection 28 mcg Sodium Chloride 0.9% 1,000 mL Lactated Ringers 0 mL * Agents Name O2 Air N2O Isoflurane (et) * Blood No blood administrations on file. Lines, Drains, and Airways Type Details Placement Removal Urethral Catheter 09/21/16 (Placed eas chandni by VALDO Alejandre: clear urine return); Need for intraoperative urine output monitoring; Close urine output monitoring: critically ill patient; indwelling catheter with core temperature probe; latex; 14; inserted at this facility; 1; 5; 10; none; 09/23/16; 0700 09/21/16 0000 by Toshia Aljeandre RN 09/23/16 0700 by Marcie Frazier RN Incision 09/21/16; chest; 03/30/22 (LDA cleanup utility RA#[id number]); 1715 (LDA cleanup utility RA#[id number]) 09/21/16 0000 by Toshia Alejandre RN 03/30/22 1715 by Fredy Wing Chest Tube 09/21/16 (#28 angled chest tube to [place]: left: pericardial); Left; 09/22/16; 1119 09/21/16 0000 by Toshia Alejandre RN 09/22/16 1119 by Vero Bonilla RN Chest Tube 09/21/16 (#28 straig ht chest tube to [place]; right: mediastinal'); Right; mediastinum; 09/22/16; 1118 09/21/16 0000 by Toshia Alejandre RN 09/22/16 1118 by Vero Bonilla, VALDO (RETIRED) Peripheral IV Line - Single Lumen 09/21/16; 0648; metacarpal vein (top of hand), left; [id number] catheter system; 20 gauge; valdo Arteaga; 09/23/16; 1251 09/21/16 0648 by Bhumi Arteaga RN 09/23/16 1251 by Henrik Webb RN (RETIRED) Percutaneous Central Line - Single Lumen 09/21/16; 0730; internal jugular vein, right; Ultrasound Guidance; Yes; 9 Fr; kenneth; YUSRA; CVC Protocol Performed; no longer indicated; 09/22/16; 1205 09/21/16 0730 by Roseline Herrera RN 09/22/16 1205 by Vero Bonilla RN (RETIRED) Pulmonary Artery Catheter - Triple Lumen 09/21/16; 0730; jugular vein, right internal; 8 Fr; 09/21/16; 1820 09/21/16 0730 by Roseline Herrera RN 09/21/16 1820 by Roseline Herrera RN ETT Mask Ventilation: Ea sy (1); ETT Type: Cuffed; ETT Size: 7.5 mm; Mac Blade: 3; Notes: Asleep, Pre-O2, Stylette; Attempts: 1; Laryngoscopy Grade: 1; ETT Placement Verified By: Auscultation, Capnometry, Visual; Secured at Teeth: 22 cm; Inserted by: Kenneth; Removal Date: 09/21/16; Removal Time: 16509/21/16 0745 by Henrik Cooper MD 09/21/16 1655 by Kristy Augustin RCP Arterial Line 09/21/16; 0808; radi al artery, right; 20 gauge; kenneth; Sterile Prep, Sterile Gloves; no longer indicated; 09/22/16; 1140 09/21/16 0808 by Henrik Cooper MD 09/22/16 1140 by Vero Bonilla RN documented in this encounter Social History [...] OR Notes * Anesthesia Postprocedure Evaluation - Henrik Cooper MD - 09/21/2016 6:50 PM EST [facility] Department of Anesthesiology Post-procedure Note Patient: Purnima Thacker Procedure Summary Date Anesthesia Start Anesthesia Stop Room / Location 09/21/16 07 1152 [facility] OR 16 / [facility] MAIN OR Procedure Diagnosis Surgeon Responsible Provider @REPLACE AORTIC VALVE, OPEN, W\CPB, W\PROSTHETIC VALVE (WRVU 41.32) (N/A Chest); @AORTOPLASTY FOR SUPRAVALVULAR STENOSIS (WRVU 29.33) (N/A Chest) () Alirio Francisco MD Clark, Jeffrey A, MD All Anesthesia Providers: Anesthesiologist: Luis Enrique Quarles MD Hogshead Hooper: Henrik Cooper MD Last (1hr) Vitals: BP Temp 36.1 ??C (97 ??F) (09/21/16 1800) Pulse 79 (09/21/16 1800) Resp 11 (09/21/16 1800) SpO2 98 % (09/21/16 1800) Patient Location: [facility] Level of Consciousness: Sedated (Pharmacologic/Intentional) Pain Management: PONV: Cardiovascular Status: Hypertension (received treatment) Respiratory Status: Intubated/Ventilated Postoperative Fluid Status: Possible Anesthetic Complications: NONE apparent at time of evaluation Final Primary Anesthesia Type: General (The anesthetic type performed was the same as planned.) Comments: * Anesthesia Preprocedure Evaluation - Henrik Cooper MD - 09/20/2016 8:41 AM EST Pre-Anesthesia Evaluation for: Purnima Thacker a 61 y.o. female. Procedure(s): @REPLACE AORTIC VALVE, OPEN, W\CPB, W\PROSTHETIC VALVE (WRVU 41.32) Patient Active Problem List Diagnosis ??? Neutropenia No past medical history on file. No past surgical history on file. Social History Substance Use Topics ??? Smoking status: Never Smoker ??? Smokeless tobacco: Never Used ??? Alcohol use No Comment: none History Drug Use No No Known Allergies Medications: MAR and/or home medications have been reviewed. Physical Exam: There were no vitals filed for this visit. There is no height or weight on file to calculate BMI. Airway Assessment: Mallampati: II TM distance: >3 FB Neck ROM: full Cardiovascular Assessment: Rhythm: regular Rate: normal (+) murmur Pulmonary Assessment: pulmonary exam normal Dental Assessment: - normal exam Misc Assessment: Patient is wearing No contact(s). IV access: Peripheral line Anesthesia Plan: ASA 3 general, with a(n) intravenous induction Purnima Thacker is a 61 y/o 97.5kg female with symptomatic aortic stenosis presenting for AVR. PMH significant for hypercholesterolemia, depression (wellbutrin), hypertension (metoprolol, spironolactone, ramipril), obesity. Cardiac studies: Echo 12/2013: LVEF is 50% no obvious regional wall motion abnormalities. GEOVANNA of 1.1 cm2 and a peak/mean gradient of 25/15 mmHg. Trace aortic regurgitation present. Cath 06/2016: nonobstructive CAD Labs: Hgb 12.4, platelets 200, K 3.8, Cr 0.87 Allergies: NKDA Properly NPO No issues with prior anesthetics Anesthetic plan: GETA, IV induction Standard ASA monitors, pre-induction arterial line CVC/PAC, intra-operative YUSRA Region - Intrathoracic Cardiac Informed Consent: Anesthetic plan and risks discussed with patient. Use of blood products discussed with patient who. Plan discussed with attending and resident. PAT Staff Note documented in this encounter Plan of Treatment Upcoming Encounters Date Type Department Care Team (Late st Contact Info) Description 02/22/2024 4:15 PM EDT Office Visit Dermatology at [place] [address] [place] [phone] Marek Bonilla MD [address] [facility] [place] [address] 06/05/2024 11:30 AM EST Office [place] [address] Magdalena Peralta MD [facility] DR RHEUMATOLOGY [place] [address] documented as of this encounter Visit Diagnoses Not on filedocumented in this encounter Administered Medications Inactive Administered Medications - up to 3 most recent administrations Medication Order MAR Action Action Date Dose Rate Site AMIOdarone (CORDARONE) 450 mg in dextrose 5% 250 mL infusion 450 mg, CONTINUOUS PRN, Starting on Wed09/21/16 at 1029, Until Wed09/21/16 at 1203, Anesthesia Intra-op New Bag 09/21/2016 10:29 AM EST 1 mg AMIOdarone (CORDARONE) injection PRN, Starting on Wed09/21/16 at 1029, Until Wed09/21/16 at 1203, Anesthesia Intra-op, Routine Given 09/21/2016 10:29 AM EST 150 mg cefUROXime (ZINACEF) injection 1.5 g Administer over 60 Minutes, ONCE PRN, Starting on Wed09/21/16 at 0757, Until Wed09/25/16 at 1834, Intra-Operative (Intra-Procedure), Routine Given 09/21/2016 10:33 AM EST 1.5 g Given 09/21/2016 8:00 AM EST 1.5 g Given 09/21/2016 7:57 AM EST 1 g desmopressin (DDAVP) injection PRN, Starting on Wed09/21/16 at 1106, Until Wed09/21/16 at 1203, Anesthesia Intra-op, Routine Given 09/21/2016 11:06 AM EST 28 mcg fentaNYL 50 mcg/mL multi-dose injection PRN, Starting on Wed09/21/16 at 0743, Until Wed09/21/16 at 1203, Pain, Anesthesia Intra-op, Routine Given 09/21/2016 8:18 AM EST 250 mcg Given 09/21/2016 8:07 AM EST 250 mcg Given 09/21/2016 7:45 AM EST 250 mcg heparin (porcine) injection PRN, Starting on Wed09/21/16 at 0827, Until Wed09/21/16 at 1203, Anesthesia Intra-op, Routine Given 09/21/2016 8:27 AM EST 19,000 Units insulin regular human (HumuLIN;NovoLIN) 1unit/mL 150 Units in sodium chloride 0.9% 150 mL infusion CONTINUOUS PRN, Starting on Wed09/21/16 at 0952, Until Wed09/21/16 at 1203, Anesthesia Intra-op, Routine New Bag 09/21/2016 9:52 AM EST 5 Units/hr 5 mL/hr insulin regular human VIAL injection PRN, Starting on Wed09/21/16 at 0952, Until Wed09/21/16 at 1203, Anesthesia Intra-op, Routine Given 09/21/2016 9:52 AM EST 5 Units lactated ringers infusion CONTINUOUS PRN, Starting on Wed09/21/16 at 0730, Until Wed09/21/16 at 1203, Anesthesia Intra-op New Bag 09/21/2016 7:30 AM EST midazolam (PF) (VERSED) 1 mg/mL multi-dose injection PRN, Starting on Wed09/21/16 at 0735, Until Wed09/21/16 at 1203, Sleep, Anesthesia Intra-op, Routine Given 09/21/2016 7:35 AM EST 5 mg NORepinephrine 16 mcg/mL (standard ADULT and Kevin greater than 20 kg) infusion CONTINUOUS PRN, Starting on Wed09/21/16 at 1010, Until Wed09/21/16 at 1203, Anesthesia Intra-op, Routine Rate/Dose Change 09/21/2016 11:16 AM EST 8 mcg/min 30 mL/hr Rate/Dose Change 09/21/2016 11:00 AM EST 6 mcg/min 22.5 m L/hr New Bag 09/21/2016 10:10 AM EST 3 mcg/min 11.3 mL/hr propofol (DIPRIVAN) 10 mg/mL bolus injection (Anesthesia) PRN, Starting on Wed09/21/16 at 0743, Until Wed09/21/16 at 1203, Anesthesia Intra-op Given 09/21/2016 8:21 AM EST 40 mg Given 09/21/2016 7:43 AM EST 50 mg protamine injection PRN, Starting on Wed09/21/16 at 1041, Until Wed09/21/16 at 1203, Anesthesia Intra-op, Routine Given 09/21/2016 10:41 AM EST 1,700 mg sodium chloride 0.9% infusion CONTINUOUS PRN, Starting on Wed09/21/16 at 0730, Until Wed09/21/16 at 1203, Anesthesia Intra-op New Bag 09/21/2016 7:30 AM EST tranexamic acid (CYKLOKAPRON) 100 mg/mL bolus injection (Anesthesia) PRN, Starting on Wed09/21/16 at 0800, Until Wed09/21/16 at 1203, Anesthesia Intra-op, Routine Given 09/21/2016 8:00 AM EST 980 mg tranexamic acid (CYKLOKAPRON) injection CONTINUOUS PRN, Starting on Wed09/21/16 at 0800, Until Wed09/21/16 at 1203, Anesthesia Intra-op, Routine New Bag 09/21/2016 8:00 AM EST 1 mg/kg/hr 1 mL/hr vancomycin (VANCOCIN) injection PRN, Starting on Wed09/21/16 at 0800, Until Wed09/21/16 at 1203, Anesthesia Intra-op, Routine Given 09/21/2016 8:00 AM EST 1 g vecuronium (NORCURON) injection PRN, Starting on Wed09/21/16 at 0743, Until Wed09/21/16 at 1203, Anesthesia Intra-op, Routine Given 09/21/2016 9:20 AM EST 5 mg Given 09/21/2016 7:43 AM EST 10 mg documented in this encounter Care Teams Log Rider Relationship Specialty Start Date End Date Deborah Quiroga, OFFICE DIRECTOR PCP - General Family Medicine 03/24/16 02/04/23 documented as of this encounter
--- OUTSIDE RECORDS SUMMARY | 2024-02-15 14:10 | XMS_ITS | Encounter Summary ---
[place] [address] Care Team Providers Care Director Of Consulting Services Name Role Phone Deborah Quiroga APRN Primary Care Provider [phone] Reason for Visit * Reason Onset Date Comments Prior Authorization 09/11/2016 Neulasta Encounter Details Date Type Department Care Team (Late st Contact Info) Description 09/11/2016 Telephone Hematology [place] [phone] Monica Wick Prior Authorization (Neulasta ) Social History Tobacco Use Types Packs/Day Years [...] encounter Miscellaneous Notes * Telephone Encounter - Monica Wick - 09/11/2016 8:58 AM EST Prior Auth for Neulasta (Approved) [facility] is a covered facility under the members plan. ID# [id number] Call placed to [phone] Rationale: Can you please start a PA for this pt to receive as outpatient at [facility] on 09/16/16? 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 ??Her last ANC was 0.56 (or 560) on 08/04/16. ??This will need to be approved through her medical as out patient. J code for neulasta. ?? [id number]. Spoke w/ Anna Marie Call Reference [id number] Copay: $ Deductible is not met, patient will have out of pocket costs until deductible is met. documented in this encounter Plan of Treatment Upcoming Encounters Date Type Department Care Team (Late st Contact Info) Description 02/22/2024 4:15 PM EDT Office Visit Dermatology at [place] [address] [place] [address] Marek Bonilla MD [address] [facility] [place] [address] 06/05/2024 11:30 AM EST Office [place] [address] [facility] [place] [address] documented as of this encounter Visit Diagnoses Not on filedocumented in this encounter Care Teams Director Of Consulting Services Relationship Specialty Start Date End Date Deborah Quiroga APRN PCP - General Family Medicine 03/24/16 02/04/23 documented as of this encounter
--- OUTSIDE RECORDS SUMMARY | 2024-02-15 14:10 | XMS_ITS | Encounter Summary ---
Author Organization [facility] [place] [address] Care Team Providers Care Care Information Associate Name Role Phone Ashley Quirogan Sylvia ANURAG Primary Care Provider [phone] Encounter Details Date Type Department Care Team (Latest Contact Info) Description 08/18/2016 4:40 PM EST Laboratory [place] [address] Aortic valve stenosis, unspecified etiology Social History [...] PM EDT Office Visit Dermatology at [address] [place] [phone] Marek Bonilla MD [address] [facility] [place] [address] 06/05/2024 11:30 AM EST Office [place] [address] Magdalena Peralta MD [facility] [place] [address] documented as of this encounter Procedures Procedure Name Priority Date/Time Associated Diagnosis Comments ABORH RECHECK STATUS Routine 08/18/2016 4:50 PM EST TYPE AND SCREEN, SDP (FUTURE SURGERY, [facility] [place] ONLY) Routine 08/18/2016 4:50 PM EST Aortic valve stenosis, unspecified etiology ABO/RH TYPING Routine 08/18/2016 4:50 PM EST Aortic valve stenosis, unspecified etiology ANTIBODY SCREEN Routine 08/18/2016 4:50 PM EST Aortic valve stenosis, unspecified etiology BASIC METABOLIC PANEL (NON-FASTING) Routine 08/18/2016 4:50 PM EST Aortic valve stenosis, unspecified etiology documented in this encounter Results * ABORH Recheck Status (08/18/2016 4:50 PM EST) ABORH Type Recheck Completed [facility] Blood specimen (specimen) 08/18/2016 4:50 PM EST 08/18/2016 5:27 PM EST Narrative Resulting Agency Comment Spec In Lab Alirio Esparza MD [facility] [place] Performing Organization Address [facility] Co de Phone Number [facility] [place] [address] * Antibody screen (08/18/2016 4:50 PM EST) Ab Screen Interp Negative [facility] Expires at 2359 on: 09/24/2016 [facility] Comment: Corrected from 09/17/16 12:00 [Unknown] on 09/09/16 02:32 by Shireen Treviño Blood specimen (specimen) 08/18/2016 4:50 PM EST 08/18/2016 5:11 PM EST Narrative Resulting Agency Comment Spec In Lab Alirio Esparza MD [facility]LOOD B[facility] [place] [place] Performing Organization Address City/[facility]/ZIP Co de Phone Number [facility] [place] [address] * ABO/Rh Typing (08/18/2016 4:50 PM EST) ABORH Type B Pos [facility] Blood specimen (specimen) 08/18/2016 4:50 PM EST 08/18/2016 5:11 PM EST Narrative Resulting Agency Comment Spec In Lab Alirio Esparza MD [facility]LOOD B[facility] [place] [facility] [place] [address] * Basic Metabolic Panel (non-fasting) (08/18/2016 4:50 PM EST) Glucose Lvl 82 65 - 199 mg/dL [facility] Comment:Diabetes: >=200 mg/d L plus symptoms BUN 12 8 - 18 mg/dL [facility] Creatinine 0.87 0.70 - 1.20 mg/dL [facility] Comment: Please note that the pediatric reference intervals supplied above were not validated at [facility]. Results from pediatric patients should be interpreted in conjunction to the patient's age, height and muscle mass. Sodium 142 135 - 145 mmol/L [facility] Potassium 3.8 3.5 - 5.0 mmol/L [facility] Comment: Please note: ??Patients with WBC >100,000 may have falsely elevated Potassium levels. ??For accurate Potassium quantification in these patients send serum separator tube (gold top) for subsequent determinations. ??Contact the Clinical Chemistry Laboratory if there are any questions. Chloride 102 98 - 107 mmol/L [facility] CO2 26 22 - 31 mmol/L [facility] Anion Gap 14 5 - 15 mmol/L [facility] Calcium 9.7 8.5 - 10.5 mg/dL [facility] Estimated GFR >60 >=60 [facility] Comment: This estimated GFR (eGFR) value [...] the following links into your internet browser. [email or web address] Blood specimen (specimen) 08/18/2016 4:50 PM EST 08/18/2016 5:03 PM EST Narrative Resulting Agency Comment Spec In Lab Alirio Esparza MD CHEMISTRY ORDERABLE S [facility] [place] [address] documented in this encounter Visit Diagnoses Diagnosis Aortic valve stenosis, unspecified etiology documented in this encounter Care Teams Care Information Associate Relationship Specialty Start Date End Date Deborah Quiroga APRN PCP - General Family Medicine 03/24/16 02/04/23 documented as of this encounter
--- OUTSIDE RECORDS SUMMARY | 2024-02-15 14:10 | XMS_ITS | Encounter Summary ---
[facility] Organization [facility] [place] [address] Care Team Providers Care Manager User Interface Name Role Phone Deborah Quiroga APRN Primary Care Provider [phone] Encounter Details Date Type Department Care Team (Late st Contact Info) Description 08/18/2016 4:20 PM EST Clinical [place] [phone] Social History Tobacco Use Types Packs/Day Years [...] Taken Comments Blood Pressure - - Pulse 93 08/18/2016 4:13 PM EST Temperature - - Respiratory Rate - - Oxygen Saturation 98% 08/18/2016 4:13 PM EST Inhaled Oxygen Concentration - - Weight 97.5 kg (215 lb) 08/18/2016 4:13 PM EST Height 154.9 cm (5' 1) 08/18/2016 4:13 PM EST Body Mass Index 40.62 08/18/2016 4:13 PM EST documented in this encounter Progress Notes * Helena Blount RN - 08/18/2016 4:20 PM EST PAT questionnaire reviewed with patient while in Pre Admission testing. Pre-operative instruction booklet reviewed with patient. Reviewed importance of pain control and cough and deep breathing exercise during the post-operative period. Instructed patient on use of Hibiclens soap to shower with the night before surgery or the morning of surgery. Pt verbalizes good understanding of all information reviewed. PLAN Testing: T&S,lab Special medication instructions: Procedure date: 09-14 documented in this encounter Plan of Treatment Upcoming Encounters Date Type Department Care Team (Late st Contact Info) Description 02/22/2024 4:15 PM EDT Office Visit Dermatology at [place] [address] [place] [address] Marek Bonilla MD [address] [facility] [address] 06/05/2024 11:30 AM EST [place] [address] Magdalena Peralta MD [facility] [place] [address] documented as of this encounter Visit Diagnoses Not on filedocumented in this encounter Care Teams Manager User Interface Relationship Specialty Start Date End Date Deborah Quiroga APRN PCP - General Family Medicine 03/24/16 02/04/23 documented as of this encounter
--- OUTSIDE RECORDS SUMMARY | 2024-02-15 14:10 | XMS_ITS | Encounter Summary ---
[place] [address] Care Team Providers Care Online Merchandiser Name Role Phone Deborah Quiroga ANURAG Primary Care Provider [phone] Reason for Visit * Reason Onset Date Comments Medical Care Coordination 07/31/2016 Encounter Details Date Type Department Care Team (Late st Contact Info) Description 07/31/2016 Telephone Hematology [place] [phone] Alexandrea Greenwood RN Medical Care Coordination Social [...] Telephone Encounter - Alexandrea Greenwood RN - 07/31/2016 4:[address] Borjas: CBC locally on 08/04/15 RN spoke with Aydee of the [facility] lab who states they can draw pt's cbc on 08/04/15, RN faxed lab req to [phone] at Aydee's request. RN instructed pt on Dr. Borjas's direction above. Pt verbalized understanding. documented in this encounter Plan of Treatment Upcoming Encounters Date Type Department Care Team (Late st Contact Info) Description 02/22/2024 4:15 PM EDT Office Visit Dermatology at [place] [address] [place] [address] Marek Bonilla MD [address] [place] [address] 06/05/2024 11:30 AM EST Office [place] [address] Magdalena Peralta MD [facility] [place] [address] documented as of this encounter Visit Diagnoses Not on filedocumented in this encounter Care Teams Online Merchandiser Relationship Specialty Start Date End Date Deborah Quiroga APRN PCP - General Family Medicine 03/24/16 02/04/23 documented as of this encounter
--- OUTSIDE RECORDS SUMMARY | 2024-02-15 14:10 | XMS_ITS | Encounter Summary ---
Author Organization [facility] [place] [address] Care Team Providers Care Char Filter Tank Tender Head Name Role Phone Deborah Quiroga APRN Primary Care Provider [phone] Encounter Details Date Type Department Care Team (Late st Contact Info) Description 09/17/2016 External Results Hematology [place] [address] Alexandrea Greenwood RN Neutropenia, unspecified [...] PM EDT Office Visit Dermatology at [address] [place] [address] Marek Bonilla MD [address] [facility] [place] [address] 06/05/2024 11:30 AM EST [place] [address] Magdalena Peralta MD [facility] [place] [address] documented as of this encounter Procedures Procedure Name Priority Date/Time Associated Diagnosis Comments CBC (WITH DIFF) STAT 09/16/2016 12:06 PM EST Neutropenia, unspecified type documented in this encounter Results * (ABNORMAL) CBC (with Diff) (09/16/2016 12:06 PM EST) WBC 1.69(EXTER NAL/ABN) 4.4 - 10.8 EXTERNAL LAB Hemoglobin 12.4 12.0 - 16.0 EXTERNAL LAB Hematocrit 37.5 36.0 - 46.0 EXTERNAL LAB Platelets 230 130 - 400 EXTERNAL LAB Neutr Abs (ANC) 0.54(EXTER NAL/ABN) 1.2 - 3.4 EXTERNAL LAB Blood specimen (specimen) 09/16/2016 12:06 PM EST Markel Borjas MD HEMATOLOGY ORDER[facility] L[facility] EXTERNAL LAB documented in this encounter Visit Diagnoses Diagnosis Neutropenia, unspecified type documented in this encounter Care Teams Char Filter Tank Tender Head Relationship Specialty Start Date End Date Deborah Quiroga, [employer] PCP - General Family Medicine 03/24/16 02/04/23 documented as of this encounter
--- OUTSIDE RECORDS SUMMARY | 2024-02-15 14:10 | XMS_ITS | Encounter Summary ---
Author Organization [facility] Address [facility] [place] [address] Care Team Providers Care Software Developer Manager Name Role Phone Ashley Quirogan Sylvia ANURAG Primary Care Provider [phone] Reason for Referral * Consultation (Routine) - Specialty Diagnoses / Procedures Referred By Contact Referred To Contact Cardiac Rehabilitation Diagnoses S/P AVR Alirio Esparza MD [facility] [address] [place] [address] Cardiac Rehab, [address] [place] [address] Referral ID Status Reason Start Date Expiration Date V isits Requested Visits Authorized [id number] Consult, Test & Treat 09/25/2016 03/24/2017 36 36 Reason for Visit * Auth/Cert Specialty Diagnoses / Procedures Referred By Crispin maxwell Referred To Contact Diagnoses Aortic stenosis Procedures PRO REPLACE AORT VALV, PROSTH VALV @REPLACE AORTIC VALVE, OPEN, W\CPB, W\PROSTHETIC VALVE (WRVU 41.32) Referral ID Status Reason Start Date Expiration Date Visits Re quested Visits Authorized [id number] 1 1 Encounter Details Date Type Department Care Team (Latest Contact Info) Description 09/21/2016 6:08 AM EST - 09/25/2016 4:33 PM EST Hospital Encounter Intermediate [place] [id number] Alirio Esparza MD [facility] [address] [place] [address] Aortic valve stenosis, unspecified etiology; S/P AVR Discharge Disposition: Home with VNA Social History [...] Sign Reading Time Taken Comments Blood Pressure 106/60 09/25/2016 12:22 PM EST Pulse 80 09/25/2016 12:22 PM EST Temperature 37 ??C (98.6 ??F) 09/25/2016 12: 22 PM EST Respiratory Rate 18 09/25/2016 12:2 2 PM EST Oxygen Saturation 96% 09/25/2016 12: 22 PM EST Inhaled Oxygen Concentration - - Weight 100.7 kg (222 lb 0.1 oz) 09/25/2016 4:45 AM EST Height 154.9 cm (5' 1) 09/21/2016 6:33 AM EST Body Mass Index 41.95 09/21/2016 6:33 AM EST documented in this encounter Discharge Summaries * Crispin Aranda PA - 09/25/2016 1:57 PM EST Inpatient - Discharge Summary Patient Name: Purnima Thacker Patient Age: 61 y.o. Birthdate: 1955 Language: Scottish Race: White Ethnicity: Not nor Admit Date: 09/21/2016 Discharge Date: 09/25/2016 Attending Physician: Alirio Esparza MD Follow-up Recommendations for Providers: Please continue routine management of cardiovascular risk factors including blood pressure, lipids,glucose, etc. Please note any changes to medications. Patient to follow-up with PCP, Deborah Quiroga APRN, in 1-2 weeks. Patient to follow-up with Explosive Operator Supervisor, Dr. Antelmo Burrell, in two weeks. Patient to follow-up with Cardiac Surgery, Dr. Alirio Esparza, to be scheduled for before 10/19/2016, with CXR, EKG, and Echo. Inpatient Provider Contact Information: [facility] Section of Cardiac Surgery [facility] [address] FAX [phone] Discharge Diagnoses (Hospital Problems) Primary Diagnoses: Secondary Diagnoses: Depression, Obesity Other Diagnoses (Chronic Problems): Active Non-Hospital Problems Diagnosis ??? Neutropenia Discharged to: Patient discharged to home Functional and Cognitive Status: At baseline. Discharge Conditions/Prognosis: Stable and improving. No past medical history on file. Past Surgical History Procedure Laterality Date ??? Pro replace aort valv, prosth valv N/A 09/21/2016 @REPLACE AORTIC VALVE, OPEN, W\CPB, W\PROSTHETIC VALVE (WRVU 41.32) performed by Alirio Esparza MD at [facility] MAIN OR ??? Pro aortoplas for supravalv sten N/A 09/21/2016 @AORTOPLASTY FOR SUPRAVALVULAR STENOSIS (WRVU 29.33) performed by Alirio Esparza MD at [facility] MAIN OR Prior To Admission Medications Prescriptions Prior to Admission Medication Sig Dispense Refill Last Dose ??? meTOPROLOL tartrate (LOPRESSOR) 25 mg Tablet Take 25 mg by mouth 2 times daily. 09/21/2016 at 0420 ??? chlorhexidine (HIBICLENS) 4 % Liquid Apply topically daily as needed. Shower from head to toe with Chlorhexidine the night before surgery . 120 mL 0 ??? chlorhexidine (HIBICLENS) 4 % Liquid Apply topically daily as needed. Shower from head to toe with Chlorhexidine the night before surgery . 120 mL 0 Taking ??? ramipril (ALTACE) 10 mg Capsule Take 10 mg by mouth daily. Taking ??? multivitamin (THERAGRAN) Tablet Take 1 tablet by mouth daily. Taking ??? atorvastatin (LIPITOR) 10 mg Tablet Take 10 mg by mouth daily. Taking ??? buPROPion (WELLBUTRIN SR) 100 mg Tablet Sustained Release Take 100 mg by mouth every evening. Taking ??? buPROPion (WELLBUTRIN SR) 150 mg 12 hr tablet Take 150 mg by mouth every morning. Taking ??? aspirin 81 mg EC tablet Take 81 mg by mouth daily. Taking ??? [DISCONTINUED] spironolactone (ALDACTONE) 25 mg tablet Take 12.5 mg by mouth daily. Taking Updated Allergies/ADRs: No Known Allergies History of Presentation: Mrs. Thacker is someone who I have met in the past. I operated on her father as well as a TAVR on her mother. She currently has severe . She has symptoms of fatigue as well as dyspnea on exertion; these symptoms have been having a gradual onset. She has had no lightheadedness, she has not felt like she has had to pass out or going to pass out. She has not been admitted to the hospital or gone to the Emergency Room for this. ?? She has a past medical history of hypercholesterolemia, depression, hypertension as well as obesity. ?? She has had no surgeries on her chest. ?? She has an echocardiogram that reveals a severely stenotic valve and I have reviewed this study myself. She currently is interested in valve surgery early. She feels well enough right now to continue. She understands that she should take it easy. Ms. Thacker has severe symptomatic aortic stenosis. We reviewed the risks and benefits of surgery, that the risks include but are not limited to bleeding, infection, organ failure, stroke, , need for a pacemaker. She had the opportunity to ask questions. Following the end of this visit I had the opportunity to observe her CBC, which showed an extremely low white count. I have spoken to Oncology, Dr. Pina, in Hematology/Oncology, and he is going to make an appointment for her to see him prior to surgery to work up her neutropenia. Major Procedures/Operations: 09/21/16 s/p Aortic Valve Replacement and aortoplasty for supravalvular stenosis Hospital Course: Purnima Thacker was admitted to [facility] on 09/21/2016 via the Same Day Program. She was brought to the operating room where Dr. Alirio Esparza performedan aortic valve replacement and aortoplasty for supravalvular stenosis. She tolerated the procedureand was brought to the Cardiovascular Intensive Care Unit for recovery. She initially required the pharmacologic support of intravenous Levophed. She was extubated from the ventilator on the day of surgery. All drips were weaned to off. Routine postoperative and home medications were started and a diet was advanced. She was started on beta blockade and this was optimized. Diuretics were started and she responded appropriately. We plan to continue diuretics following discharge for a 1 week course. By postoperative day # 1 she was transferred to the Intermediate Cardiac Care Unit for continued rehabilitation. All tubes, lines, and epicardial pacing wires were removed without incident. She voided normally after her Al was removed. She was seen by Physical Therapy and Cardiac Rehabilitation. Sternal precaution education was provided. Her discharge plan at this time is to home. The remainder of the her hospital course was uneventful and by postoperative day #4 she had met all criteria for discharge. Pain was controlled on oralmedications. She had walked 5 minutes and gone up and down stairs. She was tolerating a regular diet and had a bowel movement. Vital Signs at Discharge: Last set of vitals: BP 106/60 (BP Location (NBP): Left arm) Pulse 80 Temp 37 ??C (98.6 ??F) (Oral) Resp 18 Ht 154.9 cm (5' 1) Wt 100.7 kg (222 lb 0.1 oz) SpO2 96% BMI 41.95 kg/m2 Patient Vitals for the past 168 hrs: Weight 09/25/16 0445 100.7 kg (222 lb 0.1 oz) 09/24/16 0431 (!) 101.7 kg (224 lb 3.3 oz) 09/23/16 0700 (!) 101.5 kg (223 lb 12.3 oz) 09/22/16 0400 100.6 kg (221 lb 12.5 oz) 09/21/16 0633 97.8 kg (215 lb 9.8 oz) Current weight: 100.7 Admit/Preop weight: 97.8 kg Pertinent physical exam findings prior to discharge: General: NAD, pleasant, reclining in hospital chair. Neuro: A&Ox3, CN II-XII grossly intact, conversational. HEENT: Normocephalic, atraumatic, EOMI, sclerae anicteric. Neck: Supple, trachea midline. Heart: Normal S1/S2, no M/R/G appreciated. Lungs: CTAB, no wheeze/ronchi/rales appreciated, non-labored breathing on RA. Abd: Soft, NT, (+)BS. Ext: WWP, no LE edema bilaterally. Important Studies and Lab Data: Lab Results Component Value Date WBC 10.1 (H) 09/24/2016 RBC 2.87 (L) 09/24/2016 HGB 9.4 (L) 09/24/2016 HCT 28.3 (L) 09/24/2016 PLATELET 141 (L) 09/24/2016 Recent Labs 09/21/16 1050 INR 1.5* Lab Results Component Value Date NA 138 09/24/2016 K 4.4 09/25/2016 CL 98 09/24/2016 CO2 26 09/24/2016 BUN 23 (H) 09/24/2016 CREATININE 0.89 09/24/2016 Pending Studies and Lab Data: None Immunizations Given this Hospitalization: Immunization History Administered Date(s) Administered ??? Influenza Vaccine, Unspecified Formulation 05/18/2016 Smoking Status at Discharge: History Smoking Status ??? Never Smoker Smokeless Tobacco ??? Never Used Discharge Medications: Your Medications New Medications Dose Details acetaminophen 500 mg Tab Commonly known as: TYLENOL Take 2 tablets by mouth every 6 hours as needed for Pain (Please take up to 1,000 mg every 6 hours when experiencing pain 1-1010.). 1000 mg Quantity: 30 tablet Refills: 5 furosemide 20 mg Tab Commonly known as: LASIX Take 1 tablet by mouth daily for 7 days. Start taking on: 09/26/2016 20 mg Quantity: 7 tablet Refills: 0 oxyCODONE 5 mg Tab Commonly known as: ROXICODONE Take 1 tablet by mouth every 4 hours as needed for Pain (Take 5mg every 4 hours for pain 6-10/10 asneeded.) for up to 30 days. 5 mg Quantity: 40 tablet Refills: 0 potassium chloride 10 mEq Tbsr Commonly known as: K-DUR/KLOR-CON Take 1 tablet by mouth daily for 7 days. Start taking on: 09/26/2016 10 mEq Quantity: 7 tablet Refills: 0 senna-docusate 8.6-50 mg Tab Commonly known as: PERICOLACE Take 1 tablet by mouth daily. 1 tablet Quantity: 30 tablet Refills: 0 Continued medications, unchanged Dose Details aspirin 81 mg Tbec Take 81 mg by mouth daily. 81 mg Refills: 0 atorvastatin 10 mg Tab Commonly known as: LIPITOR Take 10 mg by mouth daily. 10 mg Refills: 0 * buPROPion 100 mg Tbsr Commonly known as: WELLBUTRIN SR Take 100 mg by mouth every evening. 100 mg Refills: 0 * buPROPion 150 mg Tbsr Commonly known as: WELLBUTRIN SR or ZYBAN Take 150 mg by mouth every morning. 150 mg Refills: 0 meTOPROLOL tartrate 25 mg Tab Commonly known as: LOPRESSOR Take 25 mg by mouth 2 times daily. 25 mg Refills: 0 multivitamin Tab Commonly known as: THERAGRAN Take 1 tablet by mouth daily. 1 tablet Refills: 0 spironolactone 25 mg Tab Commonly known as: ALDACTONE Take 0.5 tablets by mouth daily. Start taking on: 10/03/2016 12.5 mg Refills: 0 * Notice: This list has 2 medication(s) that are the same as other medications prescribed for you. Read the directions carefully, and ask your doctor or other care provider to review them with you. STOPPED Medications chlorhexidine 4 % Liqd Commonly known as: HIBICLENS ramipril 10 mg Cap Commonly known as: ALTACE Instructions Given to Patient at Discharge: General Instructions None Discharge Instructions: Call your doctor if: You have a fever of greater than 101 degrees, shaking chills, if you develop redness or drainage from your incision sites, or if you have questions. Please call your surgeon's office if you have any discharge or drainage from your chest incision. Your surgeon, Dr. Alirio Esparza and/or the Cardiac Surgery Physician Ring Rolling Machine Operator Team may be reached at . Antibiotic prophylaxis: You will need to take antibiotics prior to many invasive tests and treatments, such as dental cleaning, which should be done every 6 months. Your primary care physician or your dentist can prescribe this medication. Please refer to the card with the [place] [employer] Guidelines for more information. You have been provided with 3 copies of this card. Keep one for your self. Give one to your primary care physician and one to your dentist. Please refer to the [place] [employer] Guidelines for more information. Good dental care is important for your overall health. We recommend waiting ~3 months before returning to your dentist except in cases of emergency. Weight: Weigh yourself daily. Please call the office if you notice increasing weight, increasing fluid retention (edema), and/or SOB. Sternal (breast bone) precautions: No lifting greater than 7-10 pounds; no pushing or pulling with upper extremities; no excessive chest stretching for the first 4 weeks. Further instructions will begiven to you at your follow-up appointment. Activity level: Walk three times a day. You should continue to increase your walks by 1-2 minutes each day. It is expected that you will be walking 20-30 minutes twice a day within 3-4 weeks after discharge to home. Rest between activities and after meals. Use common sense, don't exhaust yourself. Biking: You may use a stationary bicycle whenever you are comfortable enough to permit this. Tighten the resistance slightly. Increase the amount of time on the bicycle as you would do for your walks, a minute or two each day. No biking outside until after your return appointment with Dr. Alirio Jones. You may use a [place] or treadmill but avoid any pulling motion with the arms. Home activities: You may do light housework, e.g. dusting, setting the table, washing dishes, preparing a meal. Light carpentry and gardening are allowed. Avoid trying to open tight jars and stuck windows. No vacuuming, mopping, raking, shoveling, digging or hoeing until after your return visit with the surgeon. Sexual activity: You may engage in sexual activity when you feel ready. Use a position that protects your sternum (breastbone). Do not have your partner lie on your chest. Stairs: There are no restrictions on stair climbing. Use common sense. Don't exhaust yourself. Activities outside the home: After the first week home you may go out to dinner, visit friends, go to a movie, go to hindu, etc. Heavy activities: No hunting, skiing, jogging, snow shoveling, snowmobiling, lawn mowing, swimming,golf or tennis until after your return appointment with the surgeon. Do not ride motorcycles, ATV'stractors or horses. Avoid the use of a rifle with kickback against the shoulder for six months. Sleep: Try to establish normal sleep patterns. Long naps during the day may make it hard for you tosleep at night. Use the pain medication at bedtime for the first week at home. If you have nightmares, contact us. Some medications make this worse and these can be changed. Smoking: It is very important that you not smoke after surgery. Smoking cessation education was provided as appropriate. [...] not take any herbal preparations until after you return to see the surgeon. You should complete the prescribed 7 day course of Lasix and Potassium, last dose should be takenon 10/02/2016. You should NOT take your home diuretic, Spironolactone, while taking this 7 day courseof Lasix. You should resume taking Spironolactone, on 10/03/2016. Diet: You should follow a regular diet until your appetite returns to normal. At that point in timeyou should resume a low fat, low cholesterol, [place] [employer] Diet. Driving: No driving until cleared by your surgeon. Avoid long trips if possible. If you must go on a long trip, stop the car and walk every hour. Shower/Bath: You may shower daily. No baths, soaking, or swimming until cleared by your surgeon. Wound care: Wash your incisions daily with antibacterial soap and rinse well, pat dry. Assess for any signs of infection such as increased redness, pain, warmth or drainage. Please call your surgeon's office if you have any discharge or drainage from your chest incision. If there is a lot of swelling, apply mamta wraps during the day and remove at bedtime. Elevate your legs when you are sitting. REMOVE CHEST TUBE SUTURES ON OR AFTER 09/30/16 Home oxygen therapy: N/A Follow up appointments: 1. You should arrange to see your primary care physician, Deborah Quiroga APRN, in one-to-two weeks or as soon as possible. 2. Cardiology, Dr. Antelmo Burrell, in two weeks. 3. You will return to clinic to see Dr. Alirio P. Vilma or a Cardiac Surgery PA, to be scheduledfor before 10/19/2016, and will have a CXR, EKG, and ECHO at that time. A letter will be mailed to you with your appointment information. Cardiac Rehabilitation: Purnima Thacker was seen today regarding participation in the outpatient Phase 2 Cardiac Rehabilitation at [facility]. The patient agrees to a referral to this program. The referral will be sent at discharge and the patient should be contacted by the program within 1- 2 weeks from discharge. Future Appointments and Orders Future Appointments Provider Department Dept Phone 11/20/2016 11:30 AM Markel Borjas MD [facility] [phone] Future Orders Complete By Expires Echocardiogram Transthoracic([facility]) [NFK643 Custom] 10/18/2016 (Approximate) 09/18/2017 Process Instructions: If the Echocardiogram is to be PERFORMED in a location other than [place]--STOP and order CIT006, Echocardiogram [facility]/External. Scheduling Instructions: Questions: Is a Bubble Study requested?: No Does the patient have Congenital Heart Disease?: No Does patient require sedation?: None GA rationale: Should this service be billed to the research sponsor?: EKG 12 Lead [EKG1 Custom] 10/18/2016 (Approximate) 09/25/2017 Process Instructions: Scheduling Instructions: Questions: Which location will this be performed?: [place] Is a rhythm strip needed?: No If EKG Reason is Pre-op Evaluation, indicate diagnosis for surgery.: Should this service be billed to the research sponsor?: XR Chest PA & Lateral (Generic) [[id number] Custom] 10/18/2016 (Approximate) 09/25/2017 Process Instructions: Scheduling Instructions: Questions: Where will study be performed?: [facility]- Radiology Portable exam?: No Reason for exam and clinical history: s/p AVReplacement, patch annuloplasty 1 month f/u Other pertinent information: Stat read required?: Date of injury if applicable: Requested Time: Referral to Cardiac Rehab [OAY548 Custom] As directed Process Instructions: If no progress note charted, please enter Clinical details in comments. Scheduling Instructions: Questions: My question or request is: s/p AVR. Cardiac rehab at [facility] Referral to Home Health - at DISCHARGE [YBM3686 CPT(R)] As directed Process Instructions: Scheduling Instructions: Comments: DOCUMENTATION FOR VNA SERVICES (INCLUDING THOSE PATIENTS WITH MEDICARE COVERAGE REQUIRING HOME VNA SERVICES AND/OR HOSPICE SERVICES) PATIENT'S LOCATION: Purnima Thacker [address] [place] [phone] (home) No relevant phone numbers on file. Parts Counter Associate's Name: self In discussion with the attending physician, it is certified that this patient is under their care and that they, or a Nurse Practitioner, or Physician Ring Rolling Machine Operator who is working directly with them, hada face to face encounter that meets the physician face to face encounter requirements with this patient on 09/22/2016 The encounter with the patient was in whole, or in part, for the following medical condition, whichis the primary reason for home health care services: Aortic stenosis, s/p aortic valve replacement In discussion with the provider, it is certified that, based on their findings, the following services are medically necessary for home health services. To provide the following care/treatments with the clinical findings supporting the need for services as follows: HOME HEALTH AGENCY: [facility]. PHONE: [phone] FAX: [phone] RN orders: Cardiopulmonary assessment, incisional assessment, assess vital signs, assessment of rehab progress, medication management and effectiveness, home safety evaluation. PT ORDERS: Continue rehab for endurance, gait stability and strength with mobility and transfers. Home safety evaluation. Home exercise program if appropriate. OT: assess and continue rehab for managing ADL's. Start of Care Date: 24 to 48 hours post discharg SPECIAL INSTRUCTIONS: For any follow up questions, needs, or issues please call the Cardiac SurgeryOffice at [phone] FOR MEDICARE ONLY: In discussion with the attending physician, it is certified that the clinical findings support thatthis patient is homebound i.e. absences from home require considerable and taxing effort due to: Restricted mobility and poor activity tolerance due to recent cardiac surgery. Patient requires assistance of another person to leave the home. Home Health agencies which cover the area of patient's residence have been reviewed, either verbally or in writing, and patient/family have chosen the agency as noted. Questions: Agency name and contact information: [facility] Patient location post discharge: home What services are requested: Registered Nurse Physical Therapy Occupational Therapy Start date: Responsible MD post discharge contact info: Arrangements for VNA/home care: As above. VN RN OR PCP TO PLEASE REMOVE CHEST TUBE SUTURES ON OR AFTER 09/30/16 Signed: Crispin Aranda PA-C 09/25/2016 [facility] Section of Cardiac Surgery [facility] [address] FAX [phone] Date: 09/25/2016 CC: ANURAG Alford Caryn E, APRN [address] [place] [address] documented in this encounter Discharge Instructions * Patient Instructions* Crispin Aranda PA - 09/25/2016 2:39 PM EST Discharge Instructions: Call your doctor if: You have a fever of greater than 101 degrees, shaking chills, if you develop redness or drainage from your incision sites, or if you have questions. Please call your surgeon's office if you have any discharge or drainage from your chest incision. Your surgeon, Dr. Alirio Esparza and/or the Cardiac Surgery Physician Ring Rolling Machine Operator Team may be reached at . Antibiotic prophylaxis: You will need to take antibiotics prior to many invasive tests and treatments, such as dental cleaning, which should be done every 6 months. Your primary care physician or your dentist can prescribe this medication. Please refer to the card with the [place] [employer] Guidelines for more information. You have been provided with 3 copies of this card. Keep one for your self. Give one to your primary care physician and one to your dentist. Please refer to the [place] [employer] Guidelines for more information. Good dental care is important for your overall health. We recommend waiting ~3 months before returning to your dentist except in cases of emergency. Weight: Weigh yourself daily. Please call the office if you notice increasing weight, increasing fluid retention (edema), and/or SOB. Sternal (breast bone) precautions: No lifting greater than 7-10 pounds; no pushing or pulling with upper extremities; no excessive chest stretching for the first 4 weeks. Further instructions will begiven to you at your follow-up appointment. Activity level: Walk three times a day. You should continue to increase your walks by 1-2 minutes each day. It is expected that you will be walking 20-30 minutes twice a day within 3-4 weeks after discharge to home. Rest between activities and after meals. Use common sense, don't exhaust yourself. Biking: You may use a stationary bicycle whenever you are comfortable enough to permit this. Tighten the resistance slightly. Increase the amount of time on the bicycle as you would do for your walks, a minute or two each day. No biking outside until after your return appointment with Dr. Alirio Jones. You may use a [place] or treadmill but avoid any pulling motion with the arms. Home activities: You may do light housework, e.g. dusting, setting the table, washing dishes, preparing a meal. Light carpentry and gardening are allowed. Avoid trying to open tight jars and stuck windows. No vacuuming, mopping, raking, shoveling, digging or hoeing until after your return visit with the surgeon. Sexual activity: You may engage in sexual activity when you feel ready. Use a position that protects your sternum (breastbone). Do not have your partner lie on your chest. Stairs: There are no restrictions on stair climbing. Use common sense. Don't exhaust yourself. Activities outside the home: After the first week home you may go out to dinner, visit friends, go to a movie, go to hindu, etc. Heavy activities: No hunting, skiing, jogging, snow shoveling, snowmobiling, lawn mowing, swimming,golf or tennis until after your return appointment with the surgeon. Do not ride motorcycles, ATV'stractors or horses. Avoid the use of a rifle with kickback against the shoulder for six months. Sleep: Try to establish normal sleep patterns. Long naps during the day may make it hard for you tosleep at night. Use the pain medication at bedtime for the first week at home. If you have nightmares, contact us. Some medications make this worse and these can be changed. Smoking: It is very important that you not smoke after surgery. Smoking cessation education was provided as appropriate. [...] not take any herbal preparations until after you return to see the surgeon. You should complete the prescribed 7 day course of Lasix and Potassium, last dose should be takenon 10/02/2016. You should NOT take your home diuretic, Spironolactone, while taking this 7 day courseof Lasix. You should resume taking Spironolactone, on 10/03/2016. Diet: You should follow a regular diet until your appetite returns to normal. At that point in timeyou should resume a low fat, low cholesterol, [place] [employer] Diet. Driving: No driving until cleared by your surgeon. Avoid long trips if possible. If you must go on a long trip, stop the car and walk every hour. Shower/Bath: You may shower daily. No baths, soaking, or swimming until cleared by your surgeon. Wound care: Wash your incisions daily with antibacterial soap and rinse well, pat dry. Assess for any signs of infection such as increased redness, pain, warmth or drainage. Please call your surgeon's office if you have any discharge or drainage from your chest incision. If there is a lot of swelling, apply mamta wraps during the day and remove at bedtime. Elevate your legs when you are sitting. REMOVE CHEST TUBE SUTURES ON OR AFTER 09/30/16 Home oxygen therapy: N/A Follow up appointments: 1. You should arrange to see your primary care physician, Deboarh Quiroga APRN, in one-to-two weeks or as soon as possible. 2. Cardiology, Dr. Antelmo Burrell, in two weeks. 3. You will return to clinic to see Dr. Alirio Esparza or a Cardiac Surgery PA, to be scheduledfor before 10/19/2016, and will have a CXR, EKG, and ECHO at that time. A letter will be mailed to you with your appointment information. Cardiac Rehabilitation: Purnima Thacker was seen today regarding participation in the outpatient Phase 2 Cardiac Rehabilitation at [facility]. The patient agrees to a referral to this program. The referral will be sent at discharge and the patient should be contacted by the program within 1- 2 weeks from discharge. documented in this encounter Medications at Time of Discharge Medication Sig Dispensed Refills Start Date End Date acetaminophen (TYLENOL) 500 mg Tablet Take 2 tablets by mouth every 6 hours as needed for Pain (Please take up to 1,000 mg every 6 hours when experiencing pain 1-10/10.). 30 tablet 5 09/25/2016 multivitamin (THERAGRAN) Tablet Take 1 tablet by mouth daily. atorvastatin (LIPITOR) 10 mg Tablet Take 10 mg by mouth daily. aspirin 81 mg EC tablet Take 81 mg by mouth daily. furosemide (LASIX) 20 mg Tablet Take 1 tablet by mouth daily for 7 days. 7 tablet 09/26/2016 10/03/2016 potassium chloride (K-DUR/KLOR-CON) 10 mEq Tablet Sustained Release Take 1 tablet by mouth daily for 7 days. 7 tablet 09/26/2016 10/03/2016 oxyCODONE (ROXICODONE) 5 mg Tablet Take 1 [...] 12/13/2013 01/09/2022 documented as of this encounter Progress Notes * Crispin Aranda PA - 09/24/2016 4:04 PM EST Cardiac Surgery Progress Note: ID: [id number] S/p AVR, patch aortoplasty POD#2. PMH of Neutropenia, HLD, HTN, Depression, obesity, . EF-60% 24 Hour Events: -SHER o/n. - TPW out this am. S: No complaints. Had a good night. (+) BM. Urinating normally. O: Temperature Temp: 36.7 ??C (98.1 ??F) Temp: [36.4 ??C (97.5 ??F)-37 ??C (98.6 ??F)] Heart Rate Heart Rate: 82 Heart Rate: [79-106] Blood Pressure BP: 104/60 BP: (101-130)/(51-67) Respiratory Rate Resp: 18 Resp: [16-18] SpO2 SpO2: 95 % SpO2: [85 %-99 %] I/O last 3 completed shifts: In: 1994 [P.O.:1970; I.V.:24] Out: 1105 [Urine:1105] I/O this shift: In: 660 [P.O.:660] Out: 1075 [Urine:1075] Admit weight 97.8 kg Current Weight Weight - Scale: (!) 101.7 kg (224 lb 3.3 oz) Patient Vitals for the past 168 hrs: Weight 09/24/16 0431 (!) 101.7 kg (224 lb 3.3 oz) 09/23/16 0700 (!) 101.5 kg (223 lb 12.3 oz) 09/22/16 0400 100.6 kg (221 lb 12.5 oz) 09/21/16 0633 97.8 kg (215 lb 9.8 oz) Physical exam: General: NAD, pleasant, reclining in hospital chair. Neuro: A&Ox3, CN II-XII grossly intact, conversational. Heart: Normal S1/S2, no M/R/G appreciated. Lungs: CTAB, no wheeze/ronchi/rales appreciated, non-labored breathing on RA. Abd: Soft, NT, (+)BS. Ext: WWP, no LE edema bilaterally. Incision: Dressings CDI, without drainage or crepitus. Tubes/lines/drains: PIV. LABS: Recent Labs 09/24/16 0956 09/22/16 0400 09/21/16 1605 WBC 10.1* 7.5 -- HGB 9.4* 9.2* 9.9* HCT 28.3* 28.0* -- PLATELET 141* 161 -- Recent Labs 09/24/16 0956 09/23/16 0331 09/22/16 0400 09/21/16 1605 NA 138 -- 145 -- K 4.2 4.5 4.4 4.6 CL 98 -- 107 -- CO2 26 -- 24 -- BUN 23* -- 10 -- CREATININE 0.89 -- 0.69* -- GLUCOSE 111 -- -- -- CALCIUM 9.1 -- -- -- ABG (Arterial Blood Gas) No results found for: PHART, PO2ART, NOI7CMF Assessment/Plan: TPW out this am. (+) BM. Ambulating the floor. Should be ready for discharge to home by this Wednesday. Neuro: frequent neuro checks, scheduled APAP, Oxycodone prn, Wellbutrin 150' CV: continue telemetry, Lopressor 25mg BID, Hydralazine prn (maintain SBP <120) Resp: hourly IS, therapep, pulse oximetry GI: advance diet as tolerated, daily Protonix, RBO's : Al dc'd, (+) void post removal, strict I+O Renal: replete K+ prn, Lasix 20mgIV BID ID: Fluconazole 200 PO daily. Heme: daily ASA 81', Endo: No needs identified Dispo: [facility] DW Attending Surgeon on rounds. Signed: Crispin Aranda PA-C 09/24/2016 Team pager: [phone] after 5pm [facility] Section of Cardiac Surgery * Leonor Henson, REHABILITATION INSPECTOR - 09/23/2016 10:48 AM EST Cardiac Surgery Progress Note: ID: [id number] s/p AVR, patch aortoplasty POD#2. PMH of Neutropenia, HLD, HTN, Depression, obesity,. EF- 60% 24 Hour Events: transferred from [facility] to [facility], doing well, no overnight events S: I am feeling really well this morning. Review of Systems - General ROS: negative for - chills or fever Respiratory ROS: negative for - shortness of breath Cardiovascular ROS: negative for - chest pain Gastrointestinal ROS: negative for - abdominal pain or nausea/vomiting Musculoskeletal ROS: negative for - muscular weakness Neurological ROS: negative for - TIA or stroke symptoms O: Temperature Temp: 37.1 ??C (98.8 ??F) Temp: [36.6 ??C (97.9 ??F)-37.2 ??C (99 ??F)] Heart Rate Heart Rate: 90 Heart Rate: [80-93] Blood Pressure BP: 92/45 BP: (92-123)/(43-59) Respiratory Rate Resp: 16 Resp: [15-19] SpO2 SpO2: 94 % SpO2: [85 %-100 %] I/O last 3 completed shifts: In: 1516.7 [P.O.:690; I.V.:726.7; IV Piggyback:100] Out: 1385 [Urine:1235; Other:150] I/O this shift: In: 480 [P.O.:480] Out: 150 [Urine:150] Admit weight 97.8 kg Current Weight Weight - Scale: (!) 101.5 kg (223 lb 12.3 oz) Patient Vitals for the past 168 hrs: Weight 09/23/16 0700 (!) 101.5 kg (223 lb 12.3 oz) 09/22/16 0400 100.6 kg (221 lb 12.5 oz) 09/21/16 0633 97.8 kg (215 lb 9.8 oz) Physical exam: General: well appearing Neuro: awake and alert, oriented x 3 Lungs: clear bilaterally, diminished at bases Heart: regular S1 and S2 audible without murmur Abdomen: soft, non-tender, hypoactive bowel sounds, (+)BM Ext: Moves all extremities. No evidence of edema Incisions: sternotomy dressing C/D/I Tubes/Lines/Drains: PIV, al-to be dc'd LABS: Recent Labs 09/22/16 0400 09/21/16 1605 09/21/16 1050 09/21/16 0942 WBC 7.5 -- 14.7* -- HGB 9.2* 9.9* 7.9* 7.2* HCT 28.0* -- 23.2* 21.6* PLATELET 161 -- 117* 159 PT -- -- 18.7* -- INR -- -- 1.5* -- PTT -- -- 32 -- FIBRINOGEN -- -- 228 219 Recent Labs 09/23/16 0331 09/22/16 0400 09/21/16 1605 NA -- 145 -- K 4.5 4.4 4.6 CL -- 107 -- CO2 -- 24 -- BUN -- 10 -- CREATININE -- 0.69* -- ABG (Arterial Blood Gas) No results found for: PHART, PO2ART, VSV0AVS Assessment/Plan: s/p AVR, patch aortoplasty POD#2. PMH of Neutropenia, HLD, HTN, Depression, obesity, . Transferred from [facility] yesterday and doing well. Pathway. Will dc servando today. To maintain SBP<120 Neuro: frequent neuro checks, scheduled APAP, Oxycodone prn, Wellbutrin 150' CV: continue telemetry, Lopressor 12.5'' increased to 25mg BID, Hydralazine prn (maintain SBP <120) Resp: hourly IS, therapep, pulse oximetry GI: advance diet as tolerated, daily Protonix, RBO's : Servando dc'd, (+) void post removal, strict I+O Renal: replete K+ prn, startedLasix 20mgIV BID ID: Fluconazole 200 PO daily. Heme: daily ASA 81', Endo: No needs identified Dispo: [facility] DW Attending Surgeon on rounds. Signed: Leonor Henson APRN [facility] Section of Cardiac Surgery Date: 09/23/2016 * Nico Palacios PA - 09/22/2016 9:56 AM EST Cardiac Surgery Progress Note: ID: [id number] s/p AVR, patch aortoplasty POD#1. PMH of Neutropenia, HLD, HTN, Depression, obesity,. EF- 60% 24 Hour Events: - Extubated. - Pain overnight responsive to toradol. S: Feels ok this AM. Some nausea. Pain better with toradol. Shen ice chips. OOB to chair. -flatus.-BM. Denies v, fever, chills, SOB, Abd pain, syncope, palpitations. O: Temperature Temp: 36.9 ??C (98.4 ??F) Temp: [36.1 ??C (97 ??F)-36.9 ??C (98.4 ??F)] Heart Rate Heart Rate: 87 Heart Rate: [72-94] Blood Pressure BP: 98/53 BP: (98)/(53) Respiratory Rate Resp: 9 Resp: [9-22] SpO2 SpO2: 93 % SpO2: [89 %-100 %] I/O last 3 completed shifts: In: 4097.5 [I.V.:2717.5; Blood:1280; IV Piggyback:100] Out: 2335 [Urine:2165; Other:170] I/O this shift: In: 80.7 [I.V.:80.7] Out: 177 [Urine:175; Other:2] Admit weight 97.8 kg Current Weight Weight - Scale: 100.6 kg (221 lb 12.5 oz) Patient Vitals for the past 168 hrs: Weight 09/22/16 0400 100.6 kg (221 lb 12.5 oz) 09/21/16 0633 97.8 kg (215 lb 9.8 oz) Physical exam: General: A&Ox3. NAD. Neuro: CN 2-12 intact. Moves all extremities. Lungs: CTABL, decreased bases. CT's in place without airleak. Serosanguinous discharge. Heart: RRR. S1 and S2 heard. Abdomen: Hypoactive BS. NT, ND, soft. Ext: Moves all extremities. [place], well perfused. Incisions: C/D/I Tubes/Lines/Drains: PIV, leanna, al, TPW, Cordis, CT's LABS: Recent Labs 09/22/16 0400 09/21/16 1605 09/21/16 1050 09/21/16 0942 WBC 7.5 -- 14.7* -- HGB 9.2* 9.9* 7.9* 7.2* HCT 28.0* -- 23.2* 21.6* PLATELET 161 -- 117* 159 PT -- -- 18.7* -- INR -- -- 1.5* -- PTT -- -- 32 -- FIBRINOGEN -- -- 228 219 Recent Labs 09/22/16 0400 09/21/16 1605 NA 145 -- K 4.4 4.6 CL 107 -- CO2 24 -- BUN 10 -- CREATININE 0.69* -- ABG (Arterial Blood Gas) Lab Results Component Value Date pH Art 7.35 (L) 09/21/2016 pO2 Art 108 (H) 09/21/2016 pCO2 Art 48 (H) 09/21/2016 Assessment/Plan: s/p AVR, patch aortoplasty POD#1. PMH of Neutropenia, HLD, HTN, Depression, obesity, . Extubated. Plan to keep SBP<120 utilizing BB and hydralazine for patch aortoplasty. Will d/c CT's this AM. Will hold lasix for now and reassess this afternoon. PO Fluconazole for tinea. Transfer to [facility]. Neuro: APAP, Oxy prn, wellbutrin 150' CV: Lopressor 12.5'', Hydralazine prn Resp: cough, deep breathe, ambulate, IS, therapep. PT GI: Protonix, RBO's : Al Renal: KCL prn ID: Fluconazole 200 PO daily. Heme: ASA 81', Endo: Not diabetic Dispo: [facility]; transfer to [facility]. DW Attending Surgeon on rounds. Signed: EKATERINA KIM [facility] Section of Cardiac Surgery Date: 09/22/2016 * Hortencia Cody MD - 09/21/2016 9:10 PM EST Critical Care Medicine Staff Progress Note 61 y.o. female with h/o obesity, s/p AVR POD #0. Patient arrived to ICU on levophed, propofol. CI 1.7. Amiodarone 1.0 gtt She received platelets, ddavp and cell saver in the OR. PE Temp: [36.1 ??C (97 ??F)-37 ??C (98.6 ??F)] Heart Rate: [75-93] Resp: [-] BP: (98-132)/(51-53) SpO2: [97 %-100 %] Heart Rate from SPO2: [75 bpm-93 bpm] Vent settings: 480x 12 5 100% Gen: elderly female, intubated CVS: RRR Lungs: CTAB Abd: soft, NT, ND Ext: WWP Skin: no rashes Neuro: AA&Ox3 Labs Last 3 wbc, hgb, hct plt Recent Labs 09/21/16 1605 09/21/16 1050 09/21/16 0942 09/16/16 1206 08/04/16 1205 WBC -- 14.7* -- 1.69* 1.52* HGB 9.9* 7.9* 7.2* 12.4 12.3 HCT -- 23.2* 21.6* 37.5 37.3 PLATELET -- 117* 159 230 236 Last 3 Lytes Recent Labs 09/21/16 1605 08/18/16 1650 06/03/16 1145 05/19/16 1132 NA -- 142 143 140 K 4.6 3.8 4.0 4.3 CL -- 102 104 101 CO2 -- 26 25 27 BUN -- 12 11 13 CREATININE -- 0.87 0.83 0.95 Last 3 LFTs Recent Labs 06/03/16 1145 AST 17 ALT 9 ALKPHOS 81 BILITOT 0.4 BILIDIR 0.1 Last 3 Coags Recent Labs 09/21/16 1050 PT 18.7* INR 1.5* PTT 32 Studies CXR: Status post aortic valve repair with lines and tubes as above. Small left pleural effusion. T/L/D Al ETT CVL Leanna CT Pacing wires ASSESSMENT, MANAGEMENT, and DECISION MAKING: Patient is a 61 yo female s/p AVR POD #0 - wean to extubation - continue fentanyl/ tylenol for pain control - monitor CT output - wean levophed as tolerated - fluid as needed to maintain CI > 1.7 Ppx: - scd's - HOB >30 - [...] THESE DIAGNOSES BEING MANAGED BY [facility] TEAM: Hypotension Req Fluids/Pressors Arterial Intubated for airway protection secondary to postoperative, hypoxia I personally performed 40 minutes of aggregate critical care time exclusive of procedures and teaching. This includes time during direct patient evaluation and reassessment, interpreting labs and studies, directing life and/or organ supporting organ interventions, and documentation on the unit. documented in this encounter H&P Notes * Alirio Esparza MD - 09/21/2016 7:10 AM EST Please see my other interval note. Pt cleared by hematology and cath has no sig cad. Pt ready for surgery. Source Note - Alirio Esparza MD - 09/21/2016 7:10 AM EST Mrs. Thacker is being sent for consideration of AVR for severe aortic stenosis. ?? Mrs. Thacker is someone who I have met in the past. I operated on her father as well as a TAVR on her mother. She currently has severe . She has symptoms of fatigue as well as dyspnea on exertion; these symptoms have been having a gradual onset. She has had no lightheadedness, she has not felt like she has had to pass out or going to pass out. She has not been admitted to the hospital or gone to the Emergency Room for this. ?? She has a past medical history of hypercholesterolemia, depression, hypertension as well as obesity. ?? She has had no surgeries on her chest. ?? She has an echocardiogram that reveals a severely stenotic valve and I have reviewed this study myself. She currently is interested in valve surgery early in the month of June. She feels well enough right now to continue. She understands that she should take it easy and if she is experiencing increasing symptoms come back and see me. ?? The plan right now will be to see her in the first week or 2 of May and have her cathed in May so that we can do her valve replacement in early June. We need to make an appointment both for her precath visit and her preop visit in early May. * Alirio Esparza MD - 09/21/2016 7:10 AM EST Mrs. Thacker is being sent for consideration of AVR for severe aortic stenosis. ?? Mrs. Thacker is someone who I have met in the past. I operated on her father as well as a TAVR on her mother. She currently has severe . She has symptoms of fatigue as well as dyspnea on exertion; these symptoms have been having a gradual onset. She has had no lightheadedness, she has not felt like she has had to pass out or going to pass out. She has not been admitted to the hospital or gone to the Emergency Room for this. ?? She has a past medical history of hypercholesterolemia, depression, hypertension as well as obesity. ?? She has had no surgeries on her chest. ?? She has an echocardiogram that reveals a severely stenotic valve and I have reviewed this study myself. She currently is interested in valve surgery early in the month of June. She feels well enough right now to continue. She understands that she should take it easy and if she is experiencing increasing symptoms come back and see me. ?? The plan right now will be to see her in the first week or 2 of May and have her cathed in May so that we can do her valve replacement in early June. We need to make an appointment both for her precath visit and her preop visit in early May. documented in this encounter Nursing Notes * Toshia Alejandre RN - 09/21/2016 8:57 AM EST External zoll pads applied to patient after transferring to OR bed. Nitroglycerin 200 mcg/ml injected in 1 ml increments into cardioplegia line throughout procedure. Family updated throughout procedure. documented in this encounter Miscellaneous Notes * Plan of Care - Joselyn Caceres RN - 09/25/2016 1:37 PM EST Problem: Patient Care Overview Goal: Plan of Care Review Outcome: Outcome (s) achieved Date Met: 09/25/16 09/25/16 0947 Coping/Psychosocial Plan Of Care Reviewed With patient Plan of Care Review Progress improving OUTCOME EVALUATION NOTE: OUTCOME SUMMARY: Pt had uneventful shift. A&O. VSS on RA. Denied CP or SOB. Pt IND in room and weems. Seen by PT.Refer to notes for details. Incisions WNL. Redness noted. MD aware and not worried. SR w/ 1st degree AV block With occ ectopy on tele PLAN MOVING FORWARD: Pt discharged home with friend in private car w/ VNA services. AVS reviewed with pt. Taken out in wheelchair. Denied further questions at this time. Delined and taken off tele. VNA called and faxed info. INDIVIDUALIZED FALL PREVENTION INTERVENTIONS: Patient-specific fall risk factors per assessment: [current deficits]: New meds, sternal precautions, IV access, generalized weakness Assistance [level of assistance required for transfers and ambulation]: IND Supervision [direct monitoring required during toileting and ADLs]: IND Surveillance [continuous indirect monitoring]: Tele, hourly rounding Patient-specific fall prevention interventions for sensory deficits provided, if applicable: [X] Yes CPG GOAL OUTCOME EVALUATION: Discharge Goal: Individualization & Mutuality Outcome: Outcome (s) achieved Date Met: 09/25/16 09/23/16 0241 Mutuality/Individual Preferences What Anxieties, Fears or Concerns Do You Have About Your Health or Care? none What Questions Do You Have About Your Health or Care? none What Information Would Help Us Give You More Personalized Care? none Goal: Fall Prevention-Safe Patient Handling Outcome: Outcome (s) achieved Date Met: 09/25/16 09/24/16 0355 09/25/16 0942 Daily Care Interventions Self-Care Promotion -- independence encouraged Musculoskeletal Interventions Muscle Strengthening activity/mobility promoted -- [place] Fall Risk History of Falling -- 0 Secondary Diagnosis -- 15 Ambulatory Aids -- 0 Intravenous Therapy/Heparin/Saline Lock -- 20 Gait/Transferring -- 0 Mental Status -- 0 Score -- 35 OTHER [place] Fall Risk -- Med Restraint Interventions Safety Promotion/Fall Prevention -- activity supervised Positioning Body Position -- up in chair;independent Goal: Infection Control Outcome: Outcome (s) achieved Date Met: 09/25/16 09/25/16 0942 Safety Interventions Isolation Precautions standard precautions maintained Infection Prevention environmental surveillance performed;rest/sleep promoted;single patient room provided Coping Strategies Supportive Measures active listening utilized Goal: Discharge Needs Assessment Outcome: Outcome (s) achieved Date Met: 09/25/16 09/23/16 0346 09/25/16 1328 Discharge Needs Assessment Concerns To Be Addressed denies needs/concerns at this time -- Readmission Within The Last 30 Days unable to assess -- Equipment Needed After Discharge -- none Discharge Disposition -- home or self-care Current Health Outpatient/Agency/Support Group Needs homecare agency (specify level of care) -- Anticipated Changes Related to Illness -- inability to care for self Living Environment Transportation Available -- car;family or friend will provide Activity/Self Care Review of Systems Equipment Currently Used at Home -- none Goal: Interdisciplinary Rounds/Family Conf Outcome: Outcome (s) achieved Date Met: 09/25/16 09/25/16 1328 Interdisciplinary Rounds/Family Conf Participants nursing;patient;physician * Plan of Care - Nery Jaramillo PTA - 09/25/2016 9:53 AM EST Problem: Patient Care Overview Goal: Plan of Care Review Outcome: Ongoing (Interventions Implemented as Appropriate) 09/25/16 0947 Coping/Psychosocial Plan Of Care Reviewed With patient Plan of Care Review Progress improving Physical Therapy Note Treatment Number: 3 Pertinent History of Current Problem: AVR secondary to Assessment: Patient is able to meet most PT goals as set, staying within precautions. She does need min assist to transfer from supine to sit at EOB with flat bed; she will have help at home or will sleep in recliner. Encouraged use of IS and ambulation, reviewed sternal precautions verbally and with handout. Please see the Rehab Evaluation Summaries section for detailed objective data and specifics of today???s session. Precautions/Restrictions: fall, sternal Staff Mobility Recommendations: ambulate eyes on/Indep Therapy Frequency: 2-3 times/wk Anticipated Discharge Disposition: home with assist, home with home health, home with outpatient services [facility] Pager: [phone] Inpatient Physical Therapy Patient status, treatment interventions, and goals discussed with student. I am in agreement with all details and associated flowsheet rows as documented and was present for all aspects of the patient treatment session. Nery Jaramillo, HVAC SERVICE TECHNICIAN Pager [phone] Problem: Acute Rehab Services Goal & Intervention Plan Goal: Bed Mobility Goal Stand Alone Therapy Goal Outcome: Ongoing (Interventions Implemented as Appropriate) 09/22/16 16109/25/16 0947 Bed Mobility Goal Bed Mobility Goal, Time to Achieve 4 days -- Bed Mobility Goal, Activity Type scoot/bridge;supine to sit/sit to supine -- Bed Mobility Goal, [place] Level independent -- Bed Mobility Goal, Additional Goal able to abide sternal precautions during transfers -- Bed Mobility Goal, Outcome Achieved -- goal partially met Bed Mobility Goal, Reason Goal Not Met -- (progressing) Goal: Gait Training Goal Stand Alone Therapy Goal Outcome: Outcome (s) achieved Date Met: 09/25/16 09/22/16 16109/25/16 0947 Gait Training Goal Gait Training Goal, Date Established 09/22/16 -- Gait Training Goal, Time to Achieve 4 days -- Gait Training Goal, [place] Level independent -- Gait Training Goal, Distance to Achieve ascend and descends 2 steps independently -- Gait Training Goal, Outcome -- goal met * Plan of Care - Alie Whitfield RN - 09/25/2016 3:39 AM EST Problem: Patient Care Overview Goal: Plan of Care Review 09/23/16 0347 09/24/161999 Coping/Psychosocial Plan Of Care Reviewed With -- patient Plan of Care Review Progress progress toward functional goals as expected -- OUTCOME EVALUATION NOTE: OUTCOME SUMMARY: Pt had uneventful night. A&O. Denies pain or SOB. Ambulatory around unit and in room. NSR on tele. Appears to be resting comfortably, will cont to monitor. PLAN MOVING FORWARD: Pathway, D/c? INDIVIDUALIZED FALL PREVENTION INTERVENTIONS: Patient-specific fall risk factors per assessment: [current deficits]: New enviornment Assistance [level of assistance required for transfers and ambulation]: Independent Supervision [direct monitoring required during toileting and ADLs]: Independent, rings appropriatly Surveillance [continuous indirect monitoring]: Call doherty in reach, purposeful rounding, tele Patient-specific fall prevention interventions for sensory deficits provided, if applicable: CPG GOAL OUTCOME EVALUATION: Goal: Fall Prevention-Safe Patient Handling 09/24/16 0355 09/24/161999 Daily Care Interventions Self-Care Promotion independence encouraged;BADL personal objects within reach -- Musculoskeletal Interventions Muscle Strengthening activity/mobility promoted -- Lovell Fall Risk History of Falling -- 0 Secondary Diagnosis -- 15 Ambulatory Aids -- 0 Intravenous Therapy/Heparin/Saline Lock -- 20 Gait/Transferring -- 0 Mental Status -- 0 Score -- 35 OTHER Lovell Fall Risk -- Med Restraint Interventions Safety Promotion/Fall Prevention -- activity supervised;fall prevention program maintained;nonskid shoes/slippers when out of bed;safety round/check completed Positioning Body Position -- up in chair;independent Goal: Infection Control 09/24/161999 Safety Interventions Isolation Precautions standard precautions maintained Infection Prevention environmental surveillance performed;single patient room provided Coping Strategies Supportive Measures active listening utilized;verbalization of feelings encouraged * Plan of Care - Marek Barnes RN - 09/24/2016 11:46 AM EST Problem: Pressure Injury Risk (Jordin Scale) (Adult,Obstetrics,Pediatric) Goal: Skin Integrity Patient will demonstrate the desired outcomes by discharge/transition of care. Outcome: Ongoing (Interventions Implemented as Appropriate) 09/23/16 0310 Pressure Injury Risk (Jordin Scale) (Adult,Obstetrics,Pediatric) Skin Integrity making progress toward outcome OUTCOME EVALUATION NOTE: OUTCOME SUMMARY: Patient post op day 3 from a tissue avr and aortic patch, has been ambulating independently on roomair, pain well controlled. Patient's wires removed today. PLAN MOVING FORWARD: Cont to monitor hemo-dynamic status, patient needs a BM and possible discharge tomorrow INDIVIDUALIZED FALL PREVENTION INTERVENTIONS: Patient-specific fall risk factors per assessment: [current deficits]: decondtioned due to surgery Assistance [level of assistance required for transfers and ambulation]: independent Supervision [direct monitoring required during toileting and ADLs]: Call doherty Surveillance [continuous indirect monitoring]: Hourly rounds Patient-specific fall prevention interventions for sensory deficits provided, if applicable: CPG GOAL OUTCOME EVALUATION: Problem: Skin Integrity Impairment, Risk/Actual (Adult) Goal: Skin Integrity/Wound Healing Patient will demonstrate the desired outcomes by discharge/transition of care. Outcome: Ongoing (Interventions Implemented as Appropriate) 09/23/16 0309 Skin Integrity Impairment, Risk/Actual (Adult) Skin Integrity/Wound Healing making progress toward outcome Problem: Patient Care Overview Goal: Plan of Care Review Outcome: Ongoing (Interventions Implemented as Appropriate) 09/23/16 0347 09/24/16 0005 Coping/Psychosocial Plan Of Care Reviewed With -- patient Plan of Care Review Progress progress toward functional goals as expected -- Goal: Individualization & Mutuality Outcome: Ongoing (Interventions Implemented as Appropriate) 09/23/16 0241 Mutuality/Individual Preferences What Anxieties, Fears or Concerns Do You Have About Your Health or Care? none What Questions Do You Have About Your Health or Care? none What Information Would Help Us Give You More Personalized Care? none Goal: Fall Prevention-Safe Patient Handling Outcome: Ongoing (Interventions Implemented as Appropriate) 09/24/16 0005 09/24/16 0355 09/24/16 0800 Daily Care Interventions Self-Care Promotion -- independence encouraged;BADL personal objects within reach -- Musculoskeletal Interventions Muscle Strengthening -- activity/mobility promoted -- Lovell Fall Risk History of Falling -- -- 0 Secondary Diagnosis -- -- 15 Ambulatory Aids -- -- 0 Intravenous Therapy/Heparin/Saline Lock -- -- 20 Gait/Transferring -- -- 0 Mental Status -- -- 0 Score -- -- 35 OTHER Lovell Fall Risk -- -- Med Restraint Interventions Safety Promotion/Fall Prevention -- -- activity supervised;nonskid shoes/slippers when out of bed;fall prevention program maintained Positioning Body Position independent -- -- Goal: Infection Control Outcome: Ongoing (Interventions Implemented as Appropriate) 09/24/16 0005 Safety Interventions Isolation Precautions standard precautions maintained Infection Prevention environmental surveillance performed;single patient room provided Coping Strategies Supportive Measures active listening utilized;verbalization of feelings encouraged Goal: Discharge Needs Assessment Outcome: Ongoing (Interventions Implemented as Appropriate) 09/23/16 0346 Discharge Needs Assessment Concerns To Be Addressed denies needs/concerns at this time Readmission Within The Last 30 Days unable to assess Discharge Disposition still a patient Current Health Outpatient/Agency/Support Group Needs homecare agency (specify level of care) Living Environment Transportation Available family or friend will provide Goal: Interdisciplinary Rounds/Family Conf Outcome: Ongoing (Interventions Implemented as Appropriate) 09/23/16 0346 Interdisciplinary Rounds/Family Conf Participants nursing;patient * Plan of Care - Alie Whitfield RN - 09/24/2016 3:58 AM EST Problem: Patient Care Overview Goal: Plan of Care Review 09/23/1634609/24/16 0005 Coping/Psychosocial Plan Of Care Reviewed With -- patient Plan of Care Review Progress progress toward functional goals as expected -- OUTCOME EVALUATION NOTE: OUTCOME SUMMARY: Pt had uneventful night. Denies pain or SOB. CPAP while asleep. Ambulatory in room. A&O. SR on tele. Appears to be resting comfortably, will cont to monitor. PLAN MOVING FORWARD: CT pathway INDIVIDUALIZED FALL PREVENTION INTERVENTIONS: Patient-specific fall risk factors per assessment: [current deficits]: New enviornment Assistance [level of assistance required for transfers and ambulation]: Indepdenent Supervision [direct monitoring required during toileting and ADLs]: Independent, rings appropriatly Surveillance [continuous indirect monitoring]: Tele, purposeful rounding, call doherty in reach Patient-specific fall prevention interventions for sensory deficits provided, if applicable: CPG GOAL OUTCOME EVALUATION: Goal: Fall Prevention-Safe Patient Handling 09/24/16 0005 09/24/16 0355 Daily Care Interventions Self-Care Promotion -- independence encouraged;BADL personal objects within reach Musculoskeletal Interventions Muscle Strengthening -- activity/mobility promoted Lovell Fall Risk History of Falling 0 -- Secondary Diagnosis 15 -- Ambulatory Aids 0 -- Intravenous Therapy/Heparin/Saline Lock 20 -- Gait/Transferring 0 -- Mental Status 0 -- Score 35 -- OTHER Lovell Fall Risk Med -- Restraint Interventions Safety Promotion/Fall Prevention activity supervised;fall prevention program maintained;nonskid shoes/slippers when out of bed;safety round/check completed -- Positioning Body Position independent -- Goal: Infection Control 09/24/16 0005 Safety Interventions Isolation Precautions standard precautions maintained Infection Prevention environmental surveillance performed;single patient room provided Coping Strategies Supportive Measures active listening utilized;verbalization of feelings encouraged * Plan of Care - Nery Jaramillo PTA - 09/23/2016 2:23 PM EST Problem: Patient Care Overview Goal: Plan of Care Review Outcome: Ongoing (Interventions Implemented as Appropriate) 09/23/16 0347 09/23/16 1026 Coping/Psychosocial Plan Of Care Reviewed With -- patient Plan of Care Review Progress progress toward functional goals as expected -- Physical Therapy Note Treatment Number: 2 Pertinent History of Current Problem: AVR secondary to Assessment: Patient gaining strength and endurance quickly, showing no difficulties with sit<>stand within sternal precautions, or gait, other than slow pace when ambulating. Vitals within prescribed rangeafter activity. Patient did need assist for self care; issued toileting aid. Demonstrated bed mobility within precautions and encouraged patient to use IS and ambulate several more times today. Please see the Rehab Evaluation Summaries section for detailed objective data and specifics of today???s session. Precautions/Restrictions: sternal (keep SBP < 120) Staff Mobility Recommendations: Ambulate as tolerated, supervision assist Therapy Frequency: 2-3 times/wk Anticipated Discharge Disposition: home with assist, home with home health Lalitha BALTAZAR Pager: [phone] Inpatient Physical Therapy Patient status, treatment interventions, and goals discussed with student. I am in agreement with all details and associated flowsheet rows as documented and was present for all aspects of the patient treatment session. Nery Jaramillo PTA Pager [phone] Problem: Acute Rehab Services Goal & Intervention Plan Goal: Bed Mobility Goal Stand Alone Therapy Goal Outcome: Ongoing (Interventions Implemented as Appropriate) 09/22/16 1611 09/23/16 1412 Bed Mobility Goal Bed Mobility Goal, Time to Achieve 4 days -- Bed Mobility Goal, Activity Type scoot/bridge;supine to sit/sit to supine -- Bed Mobility Goal, [place] Level independent -- Bed Mobility Goal, Additional Goal able to abide sternal precautions during transfers -- Bed Mobility Goal, Outcome Achieved -- goal ongoing Bed Mobility Goal, Reason Goal Not Met -- (progressing) Goal: Gait Training Goal Stand Alone Therapy Goal Outcome: Ongoing (Interventions Implemented as Appropriate) 09/22/16 1611 09/23/16 1412 Gait Training Goal Gait Training Goal, Date Established 09/22/16 -- Gait Training Goal, Time to Achieve 4 days -- Gait Training Goal, [place] Level independent -- Gait Training Goal, Distance to Achieve ascend and descends 2 steps independently -- Gait Training Goal, Outcome -- goal ongoing Gait Training Goal, Reason Goal Not Met -- (progressing) Goal: Goal Transfer Training Stand Alone Therapy Goal Outcome: Outcome (s) achieved Date Met: 09/23/16 09/22/16 1611 09/23/16 1412 Goal Transfer Training Transfer Training Goal, Time to Achieve 4 days -- Transfer Training Goal, Activity Type mud-yj-beagx/cbcct-ag-zmu;nxx-iy-buzzy/lingh-nc-wld -- Transfer Train Goal, [place] Level independent -- Transfer Training Goal, Additional Goal abides sternal precautions -- Transfer Training Goal, Outcome -- goal met * Consult Note - Jana Crenshaw RN - 09/23/2016 9:41 AM EST [facility] Purnima Thacker was seen today regarding participation in the outpatient Phase 2 Cardiac Rehabilitation at [facility]. The patient agrees to a referral to this program. The referral will be sent at discharge and the patient should be contacted by the Program within 1- 2 weeks from discharge. * Plan of Care - Marcie Frazier RN - 09/23/2016 3:51 AM EST Problem: Patient Care Overview Goal: Plan of Care Review Outcome: Ongoing (Interventions Implemented as Appropriate) 09/23/16 1457 Coping/Psychosocial Plan Of Care Reviewed With patient Plan of Care Review Progress progress toward functional goals as expected OUTCOME EVALUATION NOTE: OUTCOME SUMMARY: VSS, SR with occ PVCs. O2 requirement of 2L NC. Incentive spirometer encouraged. MSI and pacing wire sites WDL. Pain controlled with Tylenol. Urine cloudy with sediment and patient c/o discomfort with al. Catheter and wally area cleaned thoroughly. Will ask team to pull al in the morning. PLAN MOVING FORWARD: Pull al, pull pacing wires, encourage ambulation and incentive spirometry. INDIVIDUALIZED FALL PREVENTION INTERVENTIONS: Patient-specific fall risk factors per assessment: [current deficits]: Sternal precautions, generalized weakness Assistance [level of assistance required for transfers and ambulation]: x1 Supervision [direct monitoring required during toileting and ADLs]: Room near unit station, call doherty in reach, bed in lowest position Surveillance [continuous indirect monitoring]: Telemetry, purposeful hourly rounding, pulse oximetry Patient-specific fall prevention interventions for sensory deficits provided, if applicable: [X] Yes - supervised activity CPG GOAL OUTCOME EVALUATION: Ongoing * Plan of Care - Nicole Hernandez, PT - 09/22/2016 4:19 PM EST Problem: Patient Care Overview Goal: Plan of Care Review Outcome: Ongoing (Interventions Implemented as Appropriate) 09/22/16 1611 Coping/Psychosocial Plan Of Care Reviewed With patient Physical Therapy Note Treatment Number: 1 Assessment:61 y/o female s/p AVR secondary to severe . Now POD #1. Pt seen for Evaluation. Pt demonstrated good ability to complete post-op exs, DB and coughing, goodunderstanding of precautions and good ability to ambulate 1 loop in [facility]. Spo2 /HR/BP stable. Pt [plans on having a friend stay with her when she first gets home; expect she will progress well and beable to return home with her friend (brothers also live close by and are supportive). Please see the Rehab Evaluation Summaries section for detailed objective data and specifics of today???s session. Precautions/Restrictions: sternal (keep SBP <120) Staff Mobility Recommendations: ambulate with cga/stand-by assist; progressive walks around unit Therapy Frequency: 2-3 times/wk Anticipated Equipment Needs at Discharge: (likely no equipment needed) Anticipated Discharge Disposition: home with assist Demonstrates Need for Referral to Another Service: (cardiac rehab) NICOLE HERNANDEZ, PT Pager:[phone] Inpatient Physical Therapy Problem: Acute Rehab Services Goal & Intervention Plan Goal: Bed Mobility Goal Stand Alone Therapy Goal Outcome: Ongoing (Interventions Implemented as Appropriate) 09/22/16 1611 Bed Mobility Goal Bed Mobility Goal, Time to Achieve 4 days Bed Mobility Goal, Activity Type scoot/bridge;supine to sit/sit to supine Bed Mobility Goal, [place] Level independent Bed Mobility Goal, Additional Goal able to abide sternal precautions during transfers Goal: Gait Training Goal Stand Alone Therapy Goal Outcome: Ongoing (Interventions Implemented as Appropriate) 09/22/16 1611 Gait Training Goal Gait Training Goal, Date Established 09/22/16 Gait Training Goal, Time to Achieve 4 days Gait Training Goal, [place] Level independent Gait Training Goal, Distance to Achieve ascend and descends 2 steps independently Goal: Goal Transfer Training Stand Alone Therapy Goal Outcome: Ongoing (Interventions Implemented as Appropriate) 09/22/16 1611 Goal Transfer Training Transfer Training Goal, Time to Achieve 4 days Transfer Training Goal, Activity Type gje-wo-pbeql/zqqwl-ri-rlo;ydv-wf-mprdo/jafvl-zj-vwe Transfer Train Goal, [place] Level independent Transfer Training Goal, Additional Goal abides sternal precautions * Initial Assessments - Amanda Moreno RN - 09/22/2016 9:56 AM EST Office of Care Management Initial Assessment Amanda Moreno RN reviewed record and discussed patient with Care Team. Source of Information: patient Introduced self/reviewed role; services accepted. Reason for Hospitalization: Aortic stenosis, s/p aortic valve replacement No past medical history on file. No past surgical history on file. Hospitalizations Within the Past 30 Days: no Anticipated Length Of Stay (If known): 5 days? Current Decision-Making Capacity: yes, cognitively intact Advance Care Planning: none on file in e[facility], patient in process of completing AD's at home, chooses her [id number], Martha Thacker (home) for her DPOAH, 2nd choice in friend[facility] [place] Current Coping/Education/Information Needs: patient sitting up in recliner, awake, alert, calmly answers questions appropriately, demonstrates understanding of her current health situation. [facility] Current Functional Ability: 1 assist, IV pole Functional Status Prior to Admission: independent physically w/ADL's Home Environment: lives alone in single family home, 2 steps to enter, one level living, woodove in basement but has back-up heating system so she doesn't need to load woodstove Social & Family Supports/Community Resources: support from her two brothers who live close by, Rashad & Raymond, and her [id number] Martha Thacker who she has chosen to be her DPOA. Also has a friend Nitesh Leroy who lives in [place], [place], also her DPOAH choice. Behavioral Health History: none on file in e[facility] Substance Use/Abuse: none on file in e[facility] Other Pertinent/Service Specific Information: none Health/Prescription Coverage: Primary Insurance: [employer] Secondary Insurance: none Prescription Coverage: yes, per patient no issues Preferred Pharmacy: ?? Other: none Primary Care Provider: Deborah Quiroga APRN [phone] Patient/Caregiver Goals of Treatment: per medical team recommendations at discharge for CT surgery Potential Needs for Transition of Care: Rehab/SNF: TBD Home Health: TBD DME: no Dialysis: no Community Resources: non3 Transportation: ride home with a friend Other: none Anticipated Barriers to Discharge/Special Considerations: none anticipated at this time Plan: patient will need VNA services at discharge. The patient/sales representative aircraft has been provided a list of Home Health Agencies/DME vendors which servetheir preferred geographic area. A letter describing our affiliations was reviewed with them and they were educated about their right to choose where referrals are placed. Patient requests referral to: [facility] [employer]. PHONE: [phone] FAX: [phone] Expected date of discharge: Fri/Sat? CM called VNA to confirm referral, talked with VALDO Bunn/intake who stated she was familiar w/patient & would monitor her progress through curaspan. Referral routed to the Addiction Social Worker for matching with agency/vendor and to provide any required information. A member of the Care Management team will continue to monitor progress, follow for continuity of care and assist with transition of care planning. Amanda Moreno RN Pager: [phone] * Op Note - Alirio Esparza MD - 09/21/2016 12:53 PM EST 09/23/2016 Purnima Thacker 1955 [id number] Preoperative Diagnosis: Symptomatic aortic stenosis Postoperative Diagnosis: Symptomatic aortic stenosis Procedure: Aortic valve replacement: Bovine Pericardial 25 mm Surgeon: Alirio Esparza M.D. Ring Rolling Machine Operator: Philip BALL Anesthesia: General endotracheal anesthesia Drains: Two mediastinal tubes Pacing Wires: Two A-wires, two V-wires. EBL: Minimal mL Findings: calcified valve, no leaks Procedure: Patient was taken to the operating room. A right radial A-line placed and general endotracheal anesthesia. All the proper lines and monitors were placed by anesthesia. The patient was thenprepped and draped in the normal sterile fashion. An incision was made on the chest short of the xiphoid and up to the angle of Yousif. The subcutaneous tissue was cauterized down to the sternum. The sternal saw was used to divide the sternum along the midline. Bone wax was used on the marrow and cautery on the sternal edges. Two antibiotic-soaked towels were used to bumper the sternum. The sternal retractor was used to open the sternum. The overlying pericardium was opened in an inverse-T fashion and hung to the edge of the sternal retractor. Full-dose heparin was given. The aorta was cannulated. The right atrium had the venous cannula placed through the IVC. A retrograde was placed through the right atrium into the coronary sinus. The antegrade was place mid ascending aorta which also doubled as the root vent. With the ACT above 450 we went on bypass. The PA and aorta were . The aorta was cross clamped and the heart was arrested with cold blood cardioplegia antegrade and retrograde. CO2 insufflated the field and the aorta was opened in anoblique fashion. The valve was removed sharply with scissors and annulus debrided with pituitary rongeurs. The ventricle and root were irrigated with cold saline. The valve annulus was sized and a valve was chosen. V to A sutures with pledgets were placed around the annulus then through the valve which was seated and then tied down. The replacement was inspected and found to be satisfactory. The aorta was assessed and found to be too tight for closure. A triangular patch was fasioned out of bovine pericardium. This was anchored to the base of the root with 3 plegeted 5.0 prolenes and then runin 2 layers up each side of the aorta. The closure was tested with antegrade pelegia and found to be hemostatic. At this point, hotshots were given. The heart began beating in a sinus rhythm. The crossclamp was removed. The heart was allowed re-perfuse. The retrograde was removed and oversewn; so was the antegrade. An angled chest tube was placed behind the heart. The lungs were re-inflated. After a period ofrewarming and allowing the heart to re-perfuse, the valve was tested and the heart was de- aired. Wethen from bypass. The venous cannula was removed and the pursestring was tied down and oversewn. Protamine was given. The aortic cannula was removed. Both pursestrings were tied down and oversewn. We had no further bleeding. A straight chest tube was placed in front of the heart. Vanco paste was applied to the sternum. Interrupted steel cables were used to close the chest, several layers of Vicryl, and a 4-0 Monocryl were used to close the overlying soft tissue. Glue and clean dry sterile dressings were applied. The patient was transported to the [facility] on levo. All counts were correct. * OR Attestation - Alirio Esparza MD - 09/21/2016 12:19 PM EST Attestation: Case Date: 09/21/2016 I was present and I participated during the entire procedure (does not need to include opening and closing). ALIRIO ESPARZA MD 09/21/2016 * Brief Op Note - Alirio Esparza MD - 09/21/2016 12:19 PM EST Brief Operative Note Patient Name: Purnima Thacker : [id number] MR#: [id number] Case Date: 09/21/2016 Surgeon: Surgeon(s) and Role: * Alirio Esparza MD - Primary * Nico Palacios PA - Physician Ring Rolling Machine Operator Preoperative diagnosis: Postoperative diagnosis: Procedure(s) (LRB): @REPLACE AORTIC VALVE, OPEN, W\CPB, W\PROSTHETIC VALVE (WRVU 41.32) (N/A) @AORTOPLASTY FOR SUPRAVALVULAR STENOSIS (WRVU 29.33) (N/A) Anesthesia: General Findings: calcified trileaflet valve, no leaks, nl function Complications: none Estimated Blood Loss: * No values recorded between 09/21/2016 8:19 AM and 09/21/2016 11:23 AM * Fluids: Intraprocedure Crystalloid Total None PRBCs: none (See Anesthesia Record/Report for Other Blood Products) Urine Output: 800 mL Drains: 2 med tubes Disposition: taken directly to the ICU, intubated and in a critical condition. Condition: doing well without problems (Please see the Surgical Encounter Summary for any Implant and Specimen details pertinent to this patient.) Infection Bundle used? No documented in this encounter Plan of Treatment Upcoming Encounters Date Type Department Care Team (Late st Contact Info) Description 02/22/2024 4:15 PM EDT Office Visit Dermatology at [address] [address] Marek Bonilla MD [address] [facility] [place] [address] 06/05/2024 11:30 AM EST Office [place] [address] Magdalena Peralta MD [facility] [place] [address] Scheduled Orders Name Type Priority Associated Diagnoses Orde r Schedule EKG 12 Lead ECG Routine S/P AVR Expected: 10/18/2016 (Approximate), Expires: 09/25/2017 Scheduled Referrals Name Type Priority Associated Diagnoses Orde r Schedule Referral to Cardiac Rehab Outpatient Referral Routine S/P AVR Ordered: 09/25/2016 documented as of this encounter Procedures Procedure Name Priority Date/Time Associated Diagnosis Comments LAB SCAN 09/26/2016 12:00 AM EST IMPLANTABLE DEVICES SCAN 09/26/2016 12:00 AM EST CALENDER TENDER SCAN 09/26/2016 12:00 AM EST POTASSIUM Routine 09/25/2016 4:32 AM EST HEMOGRAM Routine 09/24/2016 9:56 AM EST DIFFERENTIAL, AUTOMATED Routine 09/24/2016 9:56 AM EST CBC (WITH DIFF) Routine 09/24/2016 9:56 AM EST BASIC METABOLIC PANEL (NON-FASTING) Routine 09/24/2016 9:56 AM EST XR CHEST PA AND LATERAL Routine 09/24/2016 6:07 AM EST POTASSIUM Routine 09/23/2016 3:31 AM EST POCT GLUCOSE Routine 09/22/2016 8:17 AM EST POCT GLUCOSE Routine 09/22/2016 4:01 AM EST SCAN, PERIPHERAL BLOOD Routine 7 4:00 AM EST HEMOGRAM Routine 09/22/2016 4:00 AM EST DIFFERENTIAL, AUTOMATED Routine 09/22/2016 4:00 AM EST CARDIAC ENZYMES (MC/CGP) Routine 09/22/2016 4:00 AM EST CREATININE Routine 09/22/2016 4:00 AM EST CBC (WITH DIFF) Routine 09/22/2016 4:00 AM EST BUN Routine 09/22/2016 4:00 AM EST GLUCOSE, FASTING Routine 09/22/2016 4:00 AM EST ELECTROLYTES PANEL Routine 09/22/2016 4: 00 AM EST POCT GLUCOSE Routine 09/21/2016 9:59 PM EST POCT GLUCOSE Routine 09/21/2016 7:26 PM EST POCT GLUCOSE Routine 09/21/2016 6:00 PM EST EXTUBATE Routine 09/21/2016 4:49 PM EST BLOOD GAS 2 ARTERIAL Routine 09/21/2016 4:42 PM EST POCT GLUCOSE Routine 09/21/2016 4:07 PM EST HEMOGLOBIN Routine 09/21/2016 4:05 PM EST POTASSIUM Routine 09/21/2016 4:05 PM EST POCT GLUCOSE Routine 09/21/2016 2:52 PM EST POCT GLUCOSE Routine 09/21/2016 1:51 PM EST POCT GLUCOSE Routine 09/21/2016 12:54 PM EST EKG 12-LEAD STAT 09/21/2016 12:26 PM EST S/P AVR XR CHEST ONE VIEW STAT 09/21/2016 12: 20 PM EST BLOOD GAS 2 ARTERIAL Routine 09/21/2016 12:20 PM EST BLOOD GAS 2 ARTERIAL Routine 09/21/2016 10:54 AM EST HEMOGRAM STAT 09/21/2016 10:50 AM EST APTT STAT 09/21/2016 10:50 AM EST THROMBIN TIME STAT 09/21/2016 10:50 AM EST PROTHROMBIN TIME STAT 09/21/2016 10:5 0 AM EST FIBRINOGEN STAT 09/21/2016 10:50 AM EST PREPARE PLATELETS, APHERESIS STAT 09/21/2016 10:30 AM EST BLOOD GAS 2 ARTERIAL Routine 09/21/2016 10:05 AM EST BLOOD GAS 2 ARTERIAL Routine 09/21/2016 9:44 AM EST FIBRINOGEN STAT 09/21/2016 9:42 AM EST PLATELET COUNT STAT 09/21/2016 9:42 AM EST HEMOGLOBIN STAT 09/21/2016 9:42 AM EST HEMATOCRIT STAT 09/21/2016 9:42 AM EST BLOOD GAS 2 ARTERIAL Routine 09/21/2016 9:10 AM EST SURGICAL PATHOLOGY REPORT Routine 09/21/2016 9:09 AM EST SPECIMEN TO PATHOLOGY Routine 09/21/2016 9:09 AM EST BLOOD GAS 2 ARTERIAL Routine 09/21/2016 8:50 AM EST BLOOD GAS 2 ARTERIAL Routine 09/21/2016 8:18 AM EST @AORTOPLASTY FOR SUPRAVALVULAR STENOSIS (WRVU 29.33) 09/21/2016 7:26 AM EST @REPLACE AORTIC VALVE, OPEN, W\CPB, W\PROSTHETIC VALVE (WRVU 41.32) 09/21/2016 7:26 AM EST PREPARE RBC STAT 09/21/2016 7:05 AM EST POCT GLUCOSE Routine 09/21/2016 6:42 AM EST documented in this encounter Results * SCAN DOC: IMPLANTABLE DEVICES (09/26/2016 12:00 AM EST) Narrative 09/26/2016 12:00 AM EST Ordered by an unspecified provider. Scanning Provider MEDIA MGR SCAN EXT O RDR/RSLT * SCAN DOC: LAB (09/26/2016 12:00 AM EST) Narrative 09/26/2016 12:00 AM EST Ordered by an unspecified provider. Scanning Provider MEDIA MGR SCAN EXT O RDR/RSLT * SCAN DOC: CALENDER TENDER (09/26/2016 12:00 AM EST) Anatomical Region Laterality Modality Other Narrative 09/26/2016 12:00 AM EST Ordered by an unspecified provider. Scanning Provider MEDIA MGR SCAN EXT O RDR/RSLT * Potassium (09/25/2016 4:32 AM EST) Pathologist [facility] Potassium 4.4 3.5 - 5.0 mmol/L [facility] Comment: Please note: ??Patients with WBC >100,000 may have falsely elevated Potassium levels. ??For accurate Potassium quantification in these patients send serum separator tube (gold top) for subsequent determinations. ??Contact the Clinical Chemistry Laboratory if there are any questions. Blood specimen (specimen) 09/25/2016 4:32 AM EST 09/25/2016 4:55 AM EST Narrative Resulting Agency Comment Spec In Lab Alirio Esparza MD CHEMISTRY ORDERABLE S [facility] [place] [address] * (ABNORMAL) Differential, Automated (09/24/2016 9:56 AM EST) Neutrophils % 76.8 % [facility] Neutr Abs (ANC) 7.79(H) 1.70 - 6.10 x10(3)/mc L [facility] Lymphocytes % 11.1 % [facility] Lymphocytes Abs 1.1 0.9 - 3.2 x10(3)/mc L [facility] Monocytes % 8.5 % [facility] Monocyte Abs 0.9 0.3 - 0.9 x10(3)/mc L [facility] Eosinophils % 0.5 % [facility] Eosinophils Abs 0.0 0.0 - 0.4 x10(3)/[facility] Basophils % 0.2 % [facility] Basophils Abs 0.0 0.0 - 0.1 x10(3)/[facility] Immature Gran % 2.90 % [facility] Comment: Immature granulocytes(IG's)percentage and absolute count will include metamyelocytes, myelocytes, and promyelocytes. Blood smears from CBCs yielding IG's will be scanned manually for concordance. If this scan disagrees with the automated IG or if promyelocytes are noted, a manual differential will be performed. Amanda Gran Abs 0.29(H) 0.00 - 0.04 x10(3)/[facility] Blood specimen (specimen) 09/24/2016 9:56 AM EST 09/24/2016 10:04 AM EST Narrative Resulting Agency Comment Spec In Lab Alirio Esparza MD HEMATOLOGY ORDERABL ES [facility] [place] [address] * (ABNORMAL) Hemogram (09/24/2016 9:56 AM EST) WBC 10.1(H) 4.0 - 9.5 x10(3)/[facility] LABORATORY RBC 2.87(L) 4.00 - 5.21 x10(6)/[facility] Hemoglobin 9.4(L) 11.7 - 15.5 gm/dL [facility] Hematocrit 28.3(L) 35.7 - 45.8 % [facility] MCV 98.6(H) 82.6 - 94.4 fL [facility] MCH 32.8(H) 27.1 - 32.0 pg [facility] MCHC 33.2 31.7 - 35.0 gm/dL [facility] Platelets 141(L) 145 - 357 x10(3)/[facility] LABORATORY RDWSD 45.0 37.0 - 46.0 fL [facility] RDWCV 12.6 11.5 - 14.1 % [facility] MPV 9.4 7.6 - 12.9 fL [facility] nRBC % Auto 1.1 % [facility] nRBC Abs Auto 0.110(H) 0.000 - 0.000 x10(3)/[facility] Blood specimen (specimen) 09/24/2016 9:56 AM EST 09/24/2016 10:04 AM EST Narrative Resulting Agency Comment Spec In Lab Alirio Esparza MD HEMATOLOGY ORDERABL ES [facility] [place] [address] * (ABNORMAL) Basic Metabolic Panel (non-fasting) (09/24/2016 9:56 AM EST) Glucose Lvl 111 65 - 199 mg/dL [facility] Comment:Diabetes: >=200 mg/d L plus symptoms BUN 23(H) 8 - 18 mg/dL [facility] Comment:result rechecked-ART Creatinine 0.89 0.70 - 1.20 mg/dL [facility] Comment: Please note that the pediatric reference intervals supplied above were not validated [place] [facility] Results from pediatric patients should be interpreted in conjunction to the patient's age, height and muscle mass. Sodium 138 135 - 145 mmol/L [facility] Potassium 4.2 3.5 - 5.0 mmol/L [facility] Comment: Please note: ??Patients with WBC >100,000 may have falsely elevated Potassium levels. ??For accurate Potassium quantification in these patients send serum separator tube (gold top) for subsequent determinations. ??Contact the Clinical Chemistry Laboratory if there are any questions. Chloride 98 98 - 107 mmol/L [facility] CO2 26 22 - 31 mmol/L [facility] Anion Gap 14 5 - 15 mmol/L [facility] Calcium 9.1 8.5 - 10.5 mg/dL [facility] Estimated GFR >60 >=60 [facility] Comment: This estimated GFR (eGFR) [...] the following links into your internet browser. [email or web address] [email or web address] Blood specimen (specimen) 09/24/2016 9:56 AM EST 09/24/2016 10:04 AM EST Narrative Resulting Agency Comment Spec In Lab Alirio Esparza MD CHEMISTRY ORDERABLE S [facility] [place] [address] * XR Chest PA & Lateral (Generic) (09/24/2016 6:07 AM EST) Anatomical Region Laterality Modality Chest N/A Digital Radiogra phy Impressions 09/24/2016 6:31 AM EST Small pleural effusions and minimal retrocardiac atelectasis, consistent with anticipated postoperative changes. Narrative 09/24/2016 6:31 AM EST EXAMINATION: XR CHEST PA AND LATERAL (GENERIC) CLINICAL HISTORY: s/p avr TECHNIQUE: 2 views COMPARISON: September 21, 2016 FINDINGS: Support lines and tubes have been removed. Changes of aortic valve replacement are again noted with a mildly prominent cardiac silhouette. There are small posterior layering pleural effusions. Minimal retrocardiac atelectasis. No pneumothorax. Procedure Note Aivs Mckinney MD - 09/24/2016 EXAMINATION: XR CHEST PA AND LATERAL (GENERIC) CLINICAL HISTORY: s/p avr TECHNIQUE: 2 views COMPARISON: September 21, 2016 FINDINGS: Support lines and tubes have been removed. Changes of aortic valvereplacement are again noted with a mildly prominent cardiac silhouette. There aresmall posterior layering pleural effusions. Minimal retrocardiac atelectasis.No pneumothorax. IMPRESSION Small pleural effusions and minimal retrocardiac atelectasis, consistentwith anticipated postoperative changes. Alirio Esparza MD IMG DX ORDERABLES * Potassium (09/23/2016 3:31 AM EST) Potassium 4.5 3.5 - 5.0 mmol/L [facility] Comment: Please note: ??Patients with WBC >100,000 may have falsely elevated Potassium levels. ??For accurate Potassium quantification in these patients send serum separator tube (gold top) for subsequent determinations. ??Contact the Clinical Chemistry Laboratory if there are any questions. Blood specimen (specimen) 09/23/2016 3:31 AM EST 09/23/2016 4:02 AM EST Narrative Resulting Agency Comment Spec In Lab Alirio Esparza MD CHEMISTRY ORDERABLE S [facility] [place] [address] * POCT Glucose (09/22/2016 8:17 AM EST) POC Glucose 131 65 - 199 mg/dL [facility] Comment: Supplemental ranges: <140 mg/dL before meals <180 mg/dL all other times of the day Blood specimen (specimen) 09/22/2016 8:17 AM EST 09/22/2016 8:17 AM EST Narrative Authorizing Provider Result Slade Esparza MD POINT OF CARE TEST ORDERABLES [facility] [place] [address] * POCT Glucose (09/22/2016 4:01 AM EST) POC Glucose 135 65 - 199 mg/dL [facility] Comment: Supplemental ranges: <140 mg/dL before meals <180 mg/dL all other times of the day Blood specimen (specimen) 09/22/2016 4:01 AM EST 09/22/2016 4:01 AM EST Alirio Esparza MD POINT OF CARE TEST ORDERABLES Performing Organization Address [facility] Co de Phone Number [facility] [place] [address] * Scan, Peripheral Blood (09/22/2016 4:00 AM EST) Plat Estimate Normal [facility] RBC Morphology Abnormal [facility] Macrocytes 1-5 /HPF [facility] Giant Platelets Less than 1 /HPF [facility] Blood specimen (specimen) 09/22/2016 4:00 AM EST 09/22/2016 4:34 AM EST Narrative Resulting Agency Comment Spec In Lab Alirio Esparza MD HEMATOLOGY ORDERABL ES Performing Organization Address [facility] Co de Phone Number [facility] [place] [address] * Electrolytes panel (09/22/2016 4:00 AM EST) Sodium 145 135 - 145 mmol/L [facility] Potassium 4.4 3.5 - 5.0 mmol/L [facility] Comment: Please note: ??Patients with WBC >100,000 may have falsely elevated Potassium levels. ??For accurate Potassium quantification in these patients send serum separator tube (gold top) for subsequent determinations. ??Contact the Clinical Chemistry Laboratory if there are any questions. Chloride 107 98 - 107 mmol/L [facility] CO2 24 22 - 31 mmol/L [facility] Anion Gap 14 5 - 15 mmol/L [facility] Blood specimen (specimen) Venous Draw / Unknown 09/22/2016 4:00 AM EST 09/22/2016 4:34 AM EST Narrative Resulting Agency Comment Spec In Lab Alirio Esparza MD CHEMISTRY ORDERABLE S Performing Organization Address City/[facility] Co de Phone Number [facility] [place] [address] * (ABNORMAL) Differential, Automated (09/22/2016 4:00 AM EST) Neutrophils % 70.9 % [facility] Neutr Abs (ANC) 5.33 1.70 - 6.10 x10(3)/mc L [facility] Lymphocytes % 9.1 % [facility] Lymphocytes Abs 0.7(L) 0.9 - 3.2 x10(3)/[facility] Monocytes % 18.0 % [facility] Monocyte Abs 1.4(H) 0.3 - 0.9 x10(3)/[facility] Eosinophils % 0.0 % [facility] Eosinophils Abs 0.0 0.0 - 0.4 x10(3)/[facility] Basophils % 0.1 % [facility] Basophils Abs 0.0 0.0 - 0.1 x10(3)/[facility] Immature Gran % 1.90 % [facility] Comment: Immature granulocytes(IG's)percentage and absolute count will include metamyelocytes, myelocytes, and promyelocytes. Blood smears from CBCs yielding IG's will be scanned manually for concordance. If this scan disagrees with the automated IG or if promyelocytes are noted, a manual differential will be performed. Amanda Gran Abs 0.14(H) 0.00 - 0.04 x10(3)/[facility] Blood specimen (specimen) 09/22/2016 4:00 AM EST 09/22/2016 4:34 AM EST Narrative Resulting Agency Comment Spec In Lab Alirio Esparza MD HEMATOLOGY ORDERABL ES Performing Organization Address [facility]/ZIP Co de Phone Number [facility] [place] [address] * (ABNORMAL) Hemogram (09/22/2016 4:00 AM EST) [facility] WBC 7.5 4.0 - 9.5 x10(3)/[facility] LABORAT[facility] RBC 2.93(L) 4.00 - 5.21 x10(6)/[facility] Hemoglobin 9.2(L) 11.7 - 15.5 gm/dL [facility] Hematocrit 28.0(L) 35.7 - 45.8 % [facility] MCV 95.6(H) 82.6 - 94.4 [facility]AT[facility] MCH 31.4 27.1 - 32.0 pg [facility] MCHC 32.9 31.7 - 35.0 gm/dL [facility] Platelets 161 145 - 357 x10(3)/[facility] RDWSD 44.0 37.0 - 46.0 [facility] RDWCV 12.6 11.5 - 14.1 % [facility] MPV 9.3 7.6 - 12.9 [facility] nRBC % Auto 0.3 % [facility] nRBC Abs Auto 0.020(H) 0.000 - 0.000 x10(3)/[facility] Blood specimen (specimen) 09/22/2016 4:00 AM EST 09/22/2016 4:34 AM EST Narrative Resulting Agency Comment Spec In Lab Alirio Esparza MD HEMATOLOGY ORDERABL ES Performing Organization Address [facility]/ZIP Co de Phone Number [facility] [place] [address] * (ABNORMAL) Cardiac Enzymes (09/22/2016 4:00 AM EST) [facility] Troponin-T 0.13(H) <=0.03 ng/mL [facility] Comment: 0.03 ng/mL: Represents the 99th percentile upper reference limit for normals. >0.03 ng/mL: Elevated cardiac troponin T level indicative of myocardial damage. Diagnosis of acute, evolving or recent IA requires a typical rise and gradual fall of cTnT with at least ONE of the following: a) Ischemic symptoms b) Development of pathologic Q waves on the ECG c) ECG changes indicative of eschemia (S-T segment elevation/depression) d) Coronary artery intervention Serial bloods should be obtained for testing on admission, at 6 to 9 hrs and again at 12 to 24 hrs if earlier samples are negative and the clinical index of suspicion is high. Reference: [Myocardial infarction redefined? a consensus document of the Joint Society of Cardiology/[place] [employer] Committee for the redefinition of myocardial infarction. ??Journal of the [place] [employer] 2000; 36: 959-969] CK, Total 338(H) 0 - 160 unit/L [facility] Blood specimen (specimen) 09/22/2016 4:00 AM EST 09/22/2016 4:34 AM EST Narrative Resulting Agency Comment Spec In Lab Alirio Esparza MD CHEMISTRY ORDERABLE S Performing Organization Address City/State/[facility] Co de Phone Number [facility] [place] [address] * (ABNORMAL) Glucose, fasting (09/22/2016 4:00 AM EST) Glucose Fasting 137(H) 65 - 99 mg/dL [facility] Comment: ?Fasting* Glucose Interpretive Criteria Normal ?65-99 mg/dL Impaired Fasting glucose ?100-125 mg/dL Consistent with Diabetes Mellitus ? >or= 126 mg/dL *Fasting is defined as no caloric intake for at least 8 hours In the absence of unequivocal hyperglycemia a plasma glucose value of >or= 126 mg/dL should be repeated on a subsequent day. Diagnosis and Classification of Diabetes Mellitus, Position Statement from the [place] [employer]. ??Diabetes Care, Volume 33, Supplement 1, Aug 2009 Blood specimen (specimen) 09/22/2016 4:00 AM EST 09/22/2016 4:34 AM EST Narrative Resulting Agency Comment Spec In Lab Alirio Esparza MD CHEMISTRY ORDERABLE S Performing Organization Address [facility] Co de Phone Number [facility] [place] [address] * (ABNORMAL) Creatinine (09/22/2016 4:00 AM EST) Creatinine 0.69(L) 0.70 - 1.20 mg/dL [facility] Comment: Please note that the pediatric reference intervals supplied above were not validated [place] [facility]. Results from pediatric patients should be interpreted in conjunction to the patient's age, height and muscle mass. Estimated GFR >60 >=60 [facility] Comment: This estimated GFR (eGFR) [...] the following links into your internet browser. http://[employer]/DHnkdep [email or web address]://[email or web address]/DHMCnkf Blood specimen (specimen) 09/22/2016 4:00 AM EST 09/22/2016 4:34 AM EST Narrative Resulting Agency Comment Spec In Lab Alirio Esparza MD CHEMISTRY ORDERABLE S Performing Organization Address [facility] Co de Phone Number [facility] [place] [address] * BUN (09/22/2016 4:00 AM EST) BUN 10 8 - 18 mg/dL [facility] Blood specimen (specimen) 09/22/2016 4:00 AM EST 09/22/2016 4:34 AM EST Narrative Resulting Agency Comment Spec In Lab Alirio sEparza MD CHEMISTRY ORDERABLE S Performing Organization Address [facility] Co de Phone Number [facility] [place] [address] * POCT Glucose (09/21/2016 9:59 PM EST) POC Glucose 146 65 - 199 mg/dL [facility] Comment: Supplemental ranges: <140 mg/dL before meals <180 mg/dL all other times of the day Blood specimen (specimen) 09/21/2016 9:59 PM EST 09/21/2016 9:59 PM EST Alirio Esparza MD POINT OF CARE TEST ORDERABLES Performing Organization Address [facility] Co de Phone Number [facility] [place] [address] * POCT Glucose (09/21/2016 7:26 PM EST) POC Glucose 152 65 - 199 mg/dL [facility] Comment: Supplemental ranges: <140 mg/dL before meals <180 mg/dL all other times of the day Blood specimen (specimen) 09/21/2016 7:26 PM EST 09/21/2016 7:26 PM EST Alirio Esparza MD POINT OF CARE TEST ORDERABLES Performing Organization Address [facility] Co de Phone Number [facility] [place] [address] * POCT Glucose (09/21/2016 6:00 PM EST) POC Glucose 146 65 - 199 mg/dL [facility] Comment: Supplemental ranges: <140 mg/dL before meals <180 mg/dL all other times of the day Blood specimen (specimen) 09/21/2016 6:00 PM EST 09/21/2016 6:00 PM EST Alirio Esparza MD POINT OF CARE TEST ORDERABLES [facility] [place] [address] * (ABNORMAL) BLOOD GAS 2 ARTERIAL (09/21/2016 4:42 PM EST) pH Art 7.35(L) 7.35 - 7.45 [facility] pCO2 Art 48(H) 35 - 45 mmHg [facility] pO2 Art 108(H) 85 - 104 mmHg [facility] HCO3 Art 26.0 20.0 - 26.0 mmol/L [facility] BE Art 0.5 -3.0 - 3.0 mmol/L [facility] Hgb Blood Gas 10.4(L) 11.7 - 15.5 gm/dL [facility] O2HB Art 96.2 94.0 - 97.0 % [facility] COHB Art 0.0 % [facility] Comment: Nonsmokers: 0.5-1.5% COHB Smokers: Variable, but usually less than 10% Toxic: 20-30% COHB Lethal: Greater than 60% COHB METHB Art 0.7 <=1.5 % [facility] Na Whole Blood 139 135 - 145 mmol/L [facility] K Whole Blood 4.2 3.5 - 5.0 mmol/L [facility] Comment: Please note: Patients with WBC >100,000 may have falsely elevated Potassium levels. Contact the Clinical Chemistry Laboratory if there are any questions. ICa Whole Blood 1.13(L) 1.15 - 1.33 mmol/L [facility] Comment: Note: ??Total bilirubin higher than 20 mg/dL may lead to falsely low ionized calcium. CL Whole Blood 106 98 - 107 mmol/L [facility] Gluc Whole Bld 147 65 - 199 mg/dL [facility] Comment:Diabetes: >=200 mg/d L plus symptoms. Lactate WB 1.2 0.5 - 2.2 mmol/L [facility] FIO2 Art 40 % [facility] PF Ratio Art 270 [facility] Blood specimen (specimen) 09/21/2016 4:42 PM EST 09/21/2016 4:42 PM EST Alirio Esparza MD CHEMISTRY ORDERABLE S Performing Organization Address [facility]/ZIP Co de Phone Number [facility] [place] [address] * POCT Glucose (09/21/2016 4:07 PM EST) POC Glucose 150 65 - 199 mg/dL [facility] Comment: Supplemental ranges: <140 mg/dL before meals <180 mg/dL all other times of the day Blood specimen (specimen) 09/21/2016 4:07 PM EST 09/21/2016 4:07 PM EST Alirio Esparza MD POINT OF CARE TEST ORDERABLES Performing Organization Address [facility] Co de Phone Number [facility] [place] [address] * (ABNORMAL) Hemoglobin (09/21/2016 4:05 PM EST) Hemoglobin 9.9(L) 11.7 - 15.5 gm/dL [facility] Blood specimen (specimen) 09/21/2016 4:05 PM EST 09/21/2016 4:20 PM EST Narrative Resulting Agency Comment Spec In Lab Alirio Esparza MD HEMATOLOGY ORDERABL ES Performing Organization Address [facility] Co de Phone Number [facility] [place] [address] * Potassium (09/21/2016 4:05 PM EST) Potassium 4.6 3.5 - 5.0 mmol/L [facility] Comment: Please note: ??Patients with WBC >100,000 may have falsely elevated Potassium levels. ??For accurate Potassium quantification in these patients send serum separator tube (gold top) for subsequent determinations. ??Contact the Clinical Chemistry Laboratory if there are any questions. Blood specimen (specimen) 09/21/2016 4:05 PM EST 09/21/2016 4:20 PM EST Narrative Resulting Agency Comment Spec In Lab Alirio Esparza MD CHEMISTRY ORDERABLE S Performing Organization Address [facility]/ZIP Co de Phone Number [facility] [place] [address] * POCT Glucose (09/21/2016 2:52 PM EST) POC Glucose 117 65 - 199 mg/dL [facility] Comment: Supplemental ranges: <140 mg/dL before meals <180 mg/dL all other times of the day Blood specimen (specimen) 09/21/2016 2:52 PM EST 09/21/2016 2:52 PM EST Alirio Esparza MD POINT OF CARE TEST ORDERABLES Performing Organization Address [facility] Co de Phone Number [facility] [place] [address] * POCT Glucose (09/21/2016 1:51 PM EST) POC Glucose 108 65 - 199 mg/dL [facility] Comment: Supplemental ranges: <140 mg/dL before meals <180 mg/dL all other times of the day Blood specimen (specimen) 09/21/2016 1:51 PM EST 09/21/2016 1:51 PM EST Alirio Esparza MD POINT OF CARE TEST ORDERABLES Performing Organization Address [facility] Co de Phone Number [facility] [place] [address] * POCT Glucose (09/21/2016 12:54 PM EST) POC Glucose 128 65 - 199 mg/dL [facility] Comment: Supplemental ranges: <140 mg/dL before meals <180 mg/dL all other times of the day Blood specimen (specimen) 09/21/2016 12:54 PM EST 09/21/2016 12:54 PM EST Narrative Authorizing Provider Result Slade Esparza MD POINT OF CARE TEST ORDERABLES Performing Organization Address [facility] Co de Phone Number [facility] [place] [address] * EKG 12 Lead (09/21/2016 12:26 PM EST) Pathologist [facility] Ventricular rate 87 BPM MUSE SYSTEM Atrial Rate 87 BPM MUSE SYSTEM P-R Interval 256 ms MUSE SYSTEM QRS Duration 90 ms MUSE SYSTEM Q-T Interval 406 ms MUSE SYSTEM QTC Calculated (Bezet) 488 ms MUSE SYSTEM Calculated P Winton 24 degrees MUSE SYSTEM Calculated R Winton 21 degrees MUSE SYSTEM Calculated T Winton -5 degrees MUSE SYSTEM INTERPRETATION Sinus rhythm with 1st degree A-V block Nonspecific T wave abnormality Prolonged QT Abnormal ECG When compared with ECG of 19-MAY-2016 11:43, GA interval has increased T wave inversion now evident in inferior and midanterior leads Confirmed by MD FRANKLYN, MARLEN ([id number]) on 09/21/2016 1:40:59 PM MUSE SYSTEM 09/21/2016 12:2 6 PM EST 09/21/2016 1:40 PM EST Alirio Esparza MD ECG ORDERABLES Performing Organization Address [facility] Co de Phone Number MUSE SYSTEM * XR Chest PA or AP 1 view (09/21/2016 12:20 PM EST) Anatomical Region Laterality Modality Chest N/A Digital Radiogra phy Impressions 09/21/2016 12:44 PM EST Status post aortic valve repair with lines and tubes as above. Small left pleural effusion. Narrative 09/21/2016 12:44 PM EST EXAMINATION: XR CHEST PA OR AP 1 VIEW CLINICAL HISTORY: s/p avr TECHNIQUE: AP view of the chest at 20 degrees upright COMPARISON: Chest radiograph 05/19/16 FINDINGS: Low lung lines bilaterally. The endotracheal tube tip is below the clavicles and above the shira. A nasogastric tube projects over the course of the esophagus and below the [id number]. There is a right IJ PA catheter projecting over the right pulmonary artery. 2 mediastinal drainage tubes are in place. Intact median sternotomy wires. There has been aortic valve repair. There is a small left pleural effusion. No focal pulmonary opacity. Procedure Note Markel Ewing MD - 09/21/2016 EXAMINATION: XR CHEST PA OR AP 1 VIEW CLINICAL HISTORY: s/p avr TECHNIQUE: AP view of the chest at 20 degrees upright COMPARISON: Chest radiograph 05/19/16 FINDINGS: Low lung lines bilaterally. The endotracheal tube tip is below theclavicles and above the shira. A nasogastric tube projects over the course of theesophagus and below the [id number]. There is a right IJ PA catheter projectingover the right pulmonary artery. 2 mediastinal drainage tubes are in place. Intactmedian sternotomy wires. There has been aortic valve repair. There is a small left pleural effusion. No focal pulmonary opacity. IMPRESSION Status post aortic valve repair with lines and tubes as above. Small left pleural effusion. Alirio Esparza MD IMG DX ORDERABLES * (ABNORMAL) BLOOD GAS 2 ARTERIAL (09/21/2016 12:20 PM EST) pH Art 7.41 7.35 - 7.45 [facility] pCO2 Art 42 35 - 45 mmHg [facility] pO2 Art 356(H) 85 - 104 mmHg [facility] HCO3 Art 26.2(H) 20.0 - 26.0 mmol/L [facility] BE Art 1.6 -3.0 - 3.0 mmol/L [facility] Hgb Blood Gas 10.7(L) 11.7 - 15.5 gm/dL [facility] O2HB Art 98.1(H) 94.0 - 97.0 % [facility] COHB Art 0.3 % [facility] Comment: Nonsmokers: 0.5-1.5% COHB Smokers: Variable, but usually less than 10% Toxic: 20-30% COHB Lethal: Greater than 60% COHB METHB Art 0.8 <=1.5 % [facility] Na Whole Blood 140 135 - 145 mmol/L [facility] K Whole Blood 3.8 3.5 - 5.0 mmol/L [facility] Comment: Please note: Patients with WBC >100,000 may have falsely elevated Potassium levels. Contact the Clinical Chemistry Laboratory if there are any questions. ICa Whole Blood 1.15(L) 1.15 - 1.33 mmol/L [facility] Comment: Note: ??Total bilirubin higher than 20 mg/dL may lead to falsely low ionized calcium. CL Whole Blood 106 98 - 107 mmol/L [facility] Gluc Whole Bld 135 65 - 199 mg/dL [facility] Comment:Diabetes: >=200 mg/d L plus symptoms. Lactate WB 2.2 0.5 - 2.2 mmol/L [facility] FIO2 Art 100 % [facility] PF Ratio Art 356 [facility] Blood specimen (specimen) 09/21/2016 12:20 PM EST 09/21/2016 12:20 PM EST Alirio Esparza MD CHEMISTRY ORDERABLE S Performing Organization Address City/State/[facility] Co de Phone Number [facility] [place] [address] * (ABNORMAL) BLOOD GAS 2 ARTERIAL (09/21/2016 10:54 AM EST) pH Art 7.43 7.35 - 7.45 [facility] pCO2 Art 40 35 - 45 mmHg [facility] pO2 Art 297(H) 85 - 104 mmHg [facility] HCO3 Art 26.0 20.0 - 26.0 mmol/L [facility] BE Art 1.6 -3.0 - 3.0 mmol/L [facility] Hgb Blood Gas 8.6(L) 11.7 - 15.5 gm/dL [facility] O2HB Art 98.6(H) 94.0 - 97.0 % [facility] COHB Art 0.5 % [facility] Comment: Nonsmokers: 0.5-1.5% COHB Smokers: Variable, but usually less than 10% Toxic: 20-30% COHB Lethal: Greater than 60% COHB METHB Art 0.3 <=1.5 % [facility] Na Whole Blood 134(L) 135 - 145 mmol/L [facility] K Whole Blood 4.5 3.5 - 5.0 mmol/L [facility] Comment: Please note: Patients with WBC >100,000 may have falsely elevated Potassium levels. Contact the Clinical Chemistry Laboratory if there are any questions. ICa Whole Blood 1.16 1.15 - 1.33 mmol/L [facility] Comment: Note: ??Total bilirubin higher than 20 mg/dL may lead to falsely low ionized calcium. CL Whole Blood 104 98 - 107 mmol/L [facility] Gluc Whole Bld 240(H) 65 - 199 mg/dL [facility] Comment:Diabetes: >=200 mg/d L plus symptoms. Lactate WB 2.4(H) 0.5 - 2.2 mmol/L [facility] FIO2 Art 95 % [facility] Flow Art 0.7 LPM [facility] PF Ratio Art 313 [facility] Temp Art 36.7 Celsius [facility] Blood specimen (specimen) 09/21/2016 10:54 AM EST 09/21/2016 10:54 AM EST Alirio Esparza MD CHEMISTRY ORDERABLE S [facility] [place] [address] * Thrombin time (09/21/2016 10:50 AM EST) Thrombin Time 19 15 - 20 sec [facility] Comment: A prolongation in the thrombin time (>20 seconds) may be indicative of hypofibrinogenemia or dysfibrinogenemia. The thrombin time will be prolonged, often markedly so, by the presence of heparin or direct thrombin inhibitors (argatroban, bivalirudin, dabigatran) in the specimen. Blood specimen (specimen) 09/21/2016 10:50 AM EST 09/21/2016 10:56 AM EST Narrative Resulting Agency Comment Spec In Lab Luis Enrique Quarles MD HEMATOLOGY ORDERABLE S Performing Organization Address [facility] Co de Phone Number [facility] [place] [address] * Fibrinogen (09/21/2016 10:50 AM EST) Fibrinogen 228 180 - 510 mg/dL [facility] Comment: Called by: JONNATHAN, Read back by: MICHELLE ALEJANDRE_, Date/Time:09/21/16 11:11. A fibrinogen level >100 mg/dL is adequate for hemostasis in most patients without underlying bleeding disorders. Blood specimen (specimen) 09/21/2016 10:50 AM EST 09/21/2016 10:56 AM EST Narrative Resulting Agency Comment Spec In Lab Luis Enrique Quarles MD HEMATOLOGY ORDERABLE S Performing Organization Address [facility] de Phone Number [facility] [place] [address] * APTT (09/21/2016 10:50 AM EST) PTT 32 25 - 35 sec [facility] Comment: The recommended therapeutic range for full dose, unfractionated heparin at [facility] is 80 ? 114 seconds. The use of the anti-Xa (heparin) level rather than the PTT is recommended for monitoring anticoagulation intensity in critically ill patients receiving unfractionated heparin by continuous IV infusion. Blood specimen (specimen) 09/21/2016 10:50 AM EST 09/21/2016 10:56 AM EST Narrative Resulting Agency Comment Spec In Lab Luis Enrique Quarles MD HEMATOLOGY ORDERABLE S Performing Organization Address City/[facility] Co de Phone Number [facility] [place] [address] * (ABNORMAL) Prothrombin Time (09/21/2016 10:50 AM EST) PT 18.7(H) 12.0 - 15.0 sec [facility] Comment: An INR <2.0 indicates adequate procoagulant activity for hemostasis in most patients without underlying bleeding disorders, though the INR may not adequately reflect hemostatic capacity in patients with liver disease and synthetic impairment. The recommended target INR range for therapeutic anticoagulation is 2.0 ? 3.0 for most applications, though lower and higher ranges may be appropriate depending on clinical circumstances. INR 1.5(H) 0.9 - 1.1 [facility] Blood specimen (specimen) 09/21/2016 10:50 AM EST 09/21/2016 10:56 AM EST Narrative Resulting Agency Comment Spec In Lab Luis Enrique Quarles MD HEMATOLOGY ORDERABLE S [facility] [place] [address] * (ABNORMAL) Hemogram (09/21/2016 10:50 AM EST) WBC 14.7(H) 4.0 - 9.5 x10(3)/[facility] LABORATORY RBC 2.40(L) 4.00 - 5.21 x10(6)/[facility] LABORATORY Hemoglobin 7.9(L) 11.7 - 15.5 gm/dL [facility] Hematocrit 23.2(L) 35.7 - 45.8 % [facility] Comment: This result has been called to MICHELLE GRIGSBY by ASHU MORENO on 09 21 2016 at 1102, and has been read back. MCV 96.7(H) 82.6 - 94.4 fL [facility] MCH 32.9(H) 27.1 - 32.0 pg [facility] MCHC 34.1 31.7 - 35.0 gm/dL [facility] Platelets 117(L) 145 - 357 x10(3)/[facility] LABORATORY RDWSD 42.6 37.0 - 46.0 [facility] LABORATORY RDWCV 12.1 11.5 - 14.1 % [facility] MPV 9.2 7.6 - 12.9 [facility] LABORATORY nRBC % Auto 0.1 % [facility] nRBC Abs Auto 0.020(H) 0.000 - 0.000 x10(3)/[facility] LABORATORY Blood specimen (specimen) 09/21/2016 10:50 AM EST 09/21/2016 10:56 AM EST Narrative Resulting Agency Comment Spec In Lab Luis Enrique Quarles MD HEMATOLOGY ORDERABLE S Performing Organization Address [facility] Co de Phone Number [facility] [place] [address] * Prepare Platelets, Apheresis (09/21/2016 10:30 AM EST) Dispensed? Yes [facility] Blood specimen (specimen) 09/21/2016 10:30 AM EST 09/21/2016 10:28 AM EST Alirio Esparza MD BLOOD BANK PRODUCT ORDERABLES Performing Organization Address [facility] Phone Number [facility] [place] [address] * (ABNORMAL) BLOOD GAS 2 ARTERIAL (09/21/2016 10:05 AM EST) pH Art 7.33(L) 7.35 - 7.45 [facility] pCO2 Art 54(Critic al) 35 - 45 mmHg [facility] Comment:Noted by manager instrumentation. pO2 Art 218(H) 85 - 104 mmHg [facility] HCO3 Art 27.9(H) 20.0 - 26.0 mmol/L [facility] BE Art 2.0 -3.0 - 3.0 mmol/L [facility] Hgb Blood Gas 8.6(L) 11.7 - 15.5 gm/dL [facility] O2HB Art 98.4(H) 94.0 - 97.0 % [facility] COHB Art 0.5 % [facility] Comment: Nonsmokers: 0.5-1.5% COHB Smokers: Variable, but usually less than 10% Toxic: 20-30% COHB Lethal: Greater than 60% COHB METHB Art 0.3 <=1.5 % [facility] Na Whole Blood 129(L) 135 - 145 mmol/L [facility] K Whole Blood 6.2(Criti gabrielle) 3.5 - 5.0 mmol/L [facility] Comment: Noted by manager instrumentation. Please note: Patients with WBC >100,000 may have falsely elevated Potassium levels. Contact the Clinical Chemistry Laboratory if there are any questions. ICa Whole Blood 0.95(L) 1.15 - 1.33 mmol/L [facility] Comment: Note: ??Total bilirubin higher than 20 mg/dL may lead to falsely low ionized calcium. CL Whole Blood 100 98 - 107 mmol/L [facility] Gluc Whole Bld 289(H) 65 - 199 mg/dL [facility] Comment:Diabetes: >=200 mg/d L plus symptoms. Lactate WB 2.2 0.5 - 2.2 mmol/L [facility] Temp Art 37.0 Celsius [facility] Blood specimen (specimen) 09/21/2016 10:05 AM EST 09/21/2016 10:05 AM EST Alirio Esparza MD CHEMISTRY ORDERABLE S [facility] [place] [address] * (ABNORMAL) BLOOD GAS 2 ARTERIAL (09/21/2016 9:44 AM EST) pH Art 7.22(Criti gabrielle) 7.35 - 7.45 [facility] Comment:Noted by manager instrumentation. pCO2 Art 70(Critica l) 35 - 45 mmHg [facility] Comment:Noted by manager instrumentation. pO2 Art 224(H) 85 - 104 mmHg [facility] HCO3 Art 27.8(H) 20.0 - 26.0 mmol/L [facility] BE Art 0.0 -3.0 - 3.0 mmol/L [facility] Hgb Blood Gas 8.7(L) 11.7 - 15.5 gm/dL [facility] O2HB Art 98.5(H) 94.0 - 97.0 % [facility] COHB Art 0.6 % [facility] Comment: Nonsmokers: 0.5-1.5% COHB Smokers: Variable, but usually less than 10% Toxic: 20-30% COHB Lethal: Greater than 60% COHB METHB Art 0.3 <=1.5 % [facility] Na Whole Blood 131(L) 135 - 145 mmol/L [facility] K Whole Blood 5.9(H) 3.5 - 5.0 mmol/L [facility] Comment: Please note: Patients with WBC >100,000 may have falsely elevated Potassium levels. Contact the Clinical Chemistry Laboratory if there are any questions. ICa Whole Blood 1.00(L) 1.15 - 1.33 mmol/L [facility] Comment: Note: ??Total bilirubin higher than 20 mg/dL may lead to falsely low ionized calcium. CL Whole Blood 101 98 - 107 mmol/L [facility] Gluc Whole Bld 227(H) 65 - 199 mg/dL [facility] Comment:Diabetes: >=200 mg/d L plus symptoms. Lactate WB 2.1 0.5 - 2.2 mmol/L [facility] Blood specimen (specimen) 09/21/2016 9:44 AM EST 09/21/2016 9:44 AM EST Alirio Esparza MD CHEMISTRY ORDERABLE S [facility] [place] [address] * (ABNORMAL) Hemoglobin (09/21/2016 9:42 AM EST) Hemoglobin 7.2(L) 11.7 - 15.5 gm/dL [facility] Blood specimen (specimen) 09/21/2016 9:42 AM EST 09/21/2016 9:51 AM EST Narrative Resulting Agency Comment Spec In Lab Alirio Esparza MD HEMATOLOGY ORDERABL ES [facility] [place] [address] * Platelet count (09/21/2016 9:42 AM EST) Platelets 159 145 - 357 x10(3)/mc L [facility] Plat Immature % 1.6 0.0 - 7.4 % [facility] Comment: Limitation of the Immature Platelet Fraction (IPF)-May be less reliable when the platelet count is less than 01b863/uL due to statistical imprecision. The IPF value provides an assessment of the Bone Marrow production status. ??It is useful in differentiating Thrombocytopenia caused by platelet destruction/consumption versus decreased production. It also helps to determine the imminent release of platelets and can be therefore a helpful parameter in Chemotherapy and Bone marrow transplant patients. ELEVATED IPF value: ?? When the bone marrow is in a state of over production such as when increased destruction and consumption are the underlying issue. ?? When the marrow is recovering post chemotherapy or bone marrow transplant. LOW to NORMAL IPF value: ?? When the bone marrow in not responding and is in a decreased state of production. References: [employer] The Clinical Value of the Immature Platelet Fraction (IPF) in Cell Recovery Document Number [id number] 12/2010 [employer] The Role of the Immature Platelet Fraction (IPF) in the Differential Diagnosis of Thrombocytopenia, Document [id number] V05/12/14 P05/14 Blood specimen (specimen) 09/21/2016 9:42 AM EST 09/21/2016 9:51 AM EST Narrative Resulting Agency Comment Spec In Lab Alirio Esparza MD HEMATOLOGY ORDERABL ES Performing Organization Address [facility] Co de Phone Number [facility] [place] [address] * (ABNORMAL) Hematocrit (09/21/2016 9:42 AM EST) Hematocrit 21.6(L) 35.7 - 45.8 % [facility] Comment: This result has been called to MICHELLE ALEJANDRE by Serjio Frazier on 09 21 2016 at 0957, and has been read back. Blood specimen (specimen) 09/21/2016 9:42 AM EST 09/21/2016 9:51 AM EST Narrative Resulting Agency Comment Spec In Lab Alirio Esparza MD HEMATOLOGY ORDERABL ES Performing Organization Address [facility] de Phone Number [facility] [place] [address] * Fibrinogen (09/21/2016 9:42 AM EST) Fibrinogen 219 180 - 510 mg/dL [facility] Comment: Called by: JONNATHAN, Read back by: MICHELLE ALEJANDRE_, Date/Time:09/21/16 10:03_. A fibrinogen level >100 mg/dL is adequate for hemostasis in most patients without underlying bleeding disorders. Blood specimen (specimen) 09/21/2016 9:42 AM EST 09/21/2016 9:51 AM EST Narrative Resulting Agency Comment Spec In Lab Alirio Esparza MD HEMATOLOGY ORDERABL ES Performing Organization Address [facility] Co de Phone Number [facility] [place] [address] * (ABNORMAL) BLOOD GAS 2 ARTERIAL (09/21/2016 9:10 AM EST) pH Art 7.36 7.35 - 7.45 [facility] pCO2 Art 48(H) 35 - 45 mmHg [facility] pO2 Art 295(H) 85 - 104 mmHg [facility] HCO3 Art 26.0 20.0 - 26.0 mmol/L [facility] BE Art 0.5 -3.0 - 3.0 mmol/L [facility] Hgb Blood Gas 8.0(L) 11.7 - 15.5 gm/dL [facility] O2HB Art 98.3(H) 94.0 - 97.0 % [facility] COHB Art 1.0 % [facility] Comment: Nonsmokers: 0.5-1.5% COHB Smokers: Variable, but usually less than 10% Toxic: 20-30% COHB Lethal: Greater than 60% COHB METHB Art 0.3 <=1.5 % [facility] Na Whole Blood 135 135 - 145 mmol/L [facility] K Whole Blood 5.4(H) 3.5 - 5.0 mmol/L [facility] Comment: Please note: Patients with WBC >100,000 may have falsely elevated Potassium levels. Contact the Clinical Chemistry Laboratory if there are any questions. ICa Whole Blood 0.93(L) 1.15 - 1.33 mmol/L [facility] Comment: Note: ??Total bilirubin higher than 20 mg/dL may lead to falsely low ionized calcium. CL Whole Blood 102 98 - 107 mmol/L [facility] Gluc Whole Bld 195 65 - 199 mg/dL [facility] Comment:Diabetes: >=200 mg/d L plus symptoms. Lactate WB 1.8 0.5 - 2.2 mmol/L [facility] Temp Art 37.0 Celsius [facility] Blood specimen (specimen) 09/21/2016 9:10 AM EST 09/21/2016 9:10 AM EST Alirio Esparza MD CHEMISTRY ORDERABLE S [facility] [place] [address] * Surgical Pathology Report (09/21/2016 9:09 AM EST) Surgical Pathology Report [id number] ?Location: 3T The signing pathologist has (i) examined the relevant preparation(s) for the specimen(s) and (ii) rendered or confirmed the diagnosis(es). . 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 Electronically signed by: ??Anand CULP, Eric Murphy Verified: ??09/24/2016 ?Pathologist CLINICAL INFORMATION Specimen Submitted: A - Aortic valve leaflets Clinical History: Clinical Diagnosis: Same SPECIMEN PROCESSING A - Labeled/Fixative: Aortic valve leaflets, formalin. Quantity/Size: Multiple, 0.5 x 1.3 x 0.4 cm in aggregate. Tissue Description: Three distinct rubbery white leaflets with additional detached calcified tissue fragments. Approximately 50 percent of the specimen is calcified, with areas up to 0.4 cm thick. There are no been vegetations or fenestrations. Sections/Processi ng: Blocks submitted for decalcification: ??(1) ?. (R1) ??ADELITA [facility] 09/21/2016 9:09 AM EST Alirio Esparza MD PATHOLOGY/CYTOLOGY ORDERABLES [facility] [place] [address] * Specimen to Pathology (surgical or derm) (09/21/2016 9:09 AM EST) AP Specimen 09/21/2016 9:09 AM EST 09/21/2016 9:09 AM EST Narrative [facility] - 09/21/2016 9:09 AM EST Specimen requisition ordered. ??Separate Pathology report to follow Alirio Esparza MD PATHOLOGY/CYTOLOGY ORDERABLES [facility] [place] [address] * (ABNORMAL) BLOOD GAS 2 ARTERIAL (09/21/2016 8:50 AM EST) pH Art 7.41 7.35 - 7.45 [facility] pCO2 Art 33(L) 35 - 45 mmHg [facility] pO2 Art 348(H) 85 - 104 mmHg [facility] HCO3 Art 20.6 20.0 - 26.0 mmol/L [facility] BE Art -4.1(L) -3.0 - 3.0 mmol/L [facility] Hgb Blood Gas 9.5(L) 11.7 - 15.5 gm/dL [facility] O2HB Art 98.8(H) 94.0 - 97.0 % [facility] COHB Art 0.3 % [facility] Comment: Nonsmokers: 0.5-1.5% COHB Smokers: Variable, but usually less than 10% Toxic: 20-30% COHB Lethal: Greater than 60% COHB METHB Art 0.3 <=1.5 % [facility] Na Whole Blood 137 135 - 145 mmol/L [facility] K Whole Blood 4.0 3.5 - 5.0 mmol/L [facility] Comment: Please note: Patients with WBC >100,000 may have falsely elevated Potassium levels. Contact the Clinical Chemistry Laboratory if there are any questions. ICa Whole Blood 1.04(L) 1.15 - 1.33 mmol/L [facility] Comment: Note: ??Total bilirubin higher than 20 mg/dL may lead to falsely low ionized calcium. CL Whole Blood 105 98 - 107 mmol/L [facility] Gluc Whole Bld 93 65 - 199 mg/dL [facility] Comment:Diabetes: >=200 mg/d L plus symptoms. Lactate WB 1.0 0.5 - 2.2 mmol/L [facility] Blood specimen (specimen) 09/21/2016 8:50 AM EST 09/21/2016 8:50 AM EST Alirio Esparza MD CHEMISTRY ORDERABLE S [facility] [place] [address] * (ABNORMAL) BLOOD GAS 2 ARTERIAL (09/21/2016 8:18 AM EST) pH Art 7.42 7.35 - 7.45 [facility] pCO2 Art 36 35 - 45 mmHg [facility] pO2 Art 283(H) 85 - 104 mmHg [facility] HCO3 Art 22.8 20.0 - 26.0 mmol/L [facility] BE Art -2.0 -3.0 - 3.0 mmol/L [facility] Hgb Blood Gas 12.6 11.7 - 15.5 gm/dL [facility] O2HB Art 99.0(H) 94.0 - 97.0 % [facility] COHB Art 0.6 % [facility] Comment: Nonsmokers: 0.5-1.5% COHB Smokers: Variable, but usually less than 10% Toxic: 20-30% COHB Lethal: Greater than 60% COHB METHB Art 0.0 <=1.5 % [facility] Na Whole Blood 144 135 - 145 mmol/L [facility] K Whole Blood 4.0 3.5 - 5.0 mmol/L [facility] Comment: Please note: Patients with WBC >100,000 may have falsely elevated Potassium levels. Contact the Clinical Chemistry Laboratory if there are any questions. ICa Whole Blood 1.22 1.15 - 1.33 mmol/L [facility] Comment: Note: ??Total bilirubin higher than 20 mg/dL may lead to falsely low ionized calcium. CL Whole Blood 106 98 - 107 mmol/L [facility] Gluc Whole Bld 102 65 - 199 mg/dL [facility] Comment:Diabetes: >=200 mg/d L plus symptoms. Lactate WB 1.2 0.5 - 2.2 mmol/L [facility] FIO2 Art 95 % [facility] Flow Art 1.1 LPM [facility] PF Ratio Art 298 [facility] Temp Art 35.6 Celsius [facility] Blood specimen (specimen) 09/21/2016 8:18 AM EST 09/21/2016 8:18 AM EST Narrative Authorizing Provider Result Slade Esparza MD CHEMISTRY ORDERABLE S [facility] [place] [address] * Prepare RBC (09/21/2016 7:05 AM EST) Dispensed? Yes [facility] Blood specimen (specimen) 09/21/2016 7:05 AM EST 09/21/2016 7:02 AM EST Alirio Esparza MD BLOOD BANK PRODUCT ORDERABLES Performing Organization Address City/[facility]/ZIP Co de Phone Number [facility] [place] [address] * POCT Glucose (09/21/2016 6:42 AM EST) POC Glucose 104 65 - 199 mg/dL [facility] Comment: Supplemental ranges: <140 mg/dL before meals <180 mg/dL all other times of the day Blood specimen (specimen) 09/21/2016 6:42 AM EST 09/21/2016 6:42 AM EST Narrative Authorizing Provider Result Slade Esparza MD POINT OF CARE TEST ORDERABLES Performing Organization Address City/[facility]/ZIP Co de Phone Number [facility] [place] [address] documented in this encounter Visit Diagnoses Diagnosis Aortic valve stenosis, unspecified etiology S/P AVR Heart valve replaced by other means Aortic stenosis Aortic valve disorders documented in this encounter Admitting Diagnoses Diagnosis Aortic stenosis Aortic valve disorders documented in this encounter Administered Medications Inactive Administered Medications - up to 3 most recent administrations Medication Order MAR Action Action Date Dose Rate Site acetaminophen (OFIRMEV) injection 1,000 mg 1,000 mg, Intravenous, at 400 mL/hr, Administer over 15 Minutes, EVERY 6 HOURS SCHEDULED, 4 doses, First dose on Wed09/21/16 at 1800, Last dose on Wed09/22/16 at 1200, Maximum dose of acetaminophen is 4000 mg from all sources in 24 hours., Routine, Is ketorolac (Toradol) IV contraindicated? Yes, Can this patient tolerate oral medications or suppositories? No Given 09/22/2016 5:51 AM EST 1,000 mg 400 mL/hr Given 09/21/2016 11:16 PM EST 1,000 mg 400 mL/hr Given 09/21/2016 5:08 PM EST 1,000 mg 400 mL/hr acetaminophen (TYLENOL) tablet 1,000 mg 1,000 mg, Oral, EVERY 6 HOURS SCHEDULED, First dose on Wed09/21/16 at 1800, Until Discontinued, For pain when taking by mouth , Routine Given 09/25/2016 9:42 AM EST 1,000 mg Given 09/24/2016 6:52 PM EST 1,000 mg Given 09/24/2016 11:50 AM EST 1,000 mg albumin, human 5% 250 mL bottle Intravenous, ONCE, 1 dose, On Wed09/21/16 at 1230, PRN as needed for volume replacement to maintain cardiac index greater than or equal to 2.0 L/min/M2, Recovery ([facility]), STAT Given 09/21/2016 12:30 PM EST 12.5 g AMIOdarone (CORDARONE) 360 mg in dextrose 5% 200 mL infusion 1 mg/min (33.3333 mL/hr, rounded to 33.3 mL/hr), Intravenous, CONTINUOUS, Starting on Wed09/21/16 at 1245, Until Wed09/22/16 at 1036, 1mg/min for 6hrs, then 0.5mg/min for 18hrs. After first 24hours, order maintenance dose 0.5 mg/min. Use in-line filter. Rate/Dose Verify 09/21/2016 8:00 PM EST 0.5 mg/min 16.7 mL/hr Rate/Dose Verify 09/21/2016 6:15 PM EST 0.501 mg/min 16.7 mL/hr Rate/Dose Verify 09/21/2016 5:00 PM EST 0.501 mg/min 16.7 mL/hr aspirin chewable tablet 81 mg 81 mg, Oral, DAILY, First dose on Wed09/22/16 at 0900, Until Discontinued, Start on post-op day 1 in the AM., Routine Given 09/25/2016 9:42 AM EST 81 mg Given 09/24/2016 8:29 AM EST 81 mg Given 09/23/2016 8:17 AM EST 81 mg aspirin suppository 300 mg 300 mg, Rectal, DAILY, First dose on Wed09/22/16 at 0900, Until Discontinued, Start on post-op day 1 in the AM, Routine atorvastatin (LIPITOR) tablet 10 mg 10 mg, Oral, EVERY EVENING, First dose on Wed09/21/16 at 1700, Until Discontinued, Routine Given 09/24/2016 4:22 PM EST 10 mg Given 09/23/2016 5:08 PM EST 10 mg Given 09/22/2016 5:20 PM EST 10 mg buPROPion (WELLBUTRIN SR or ZYBAN) SR tablet 150 mg 150 mg, Oral, EVERY MORNING, First dose on Wed09/22/16 at 0700, Until Discontinued, DO NOT CRUSH OR OPEN, Routine Given 09/25/2016 6:49 AM EST 150 mg Given 09/24/2016 6:02 AM EST 150 mg Given 09/23/2016 6:02 AM EST 150 mg buPROPion (WELLBUTRIN SR) SR tablet 100 mg 100 mg, Oral, EVERY EVENING, First dose on Wed09/22/16 at 1700, Until Discontinued, DO NOT CRUSH OR OPEN, Routine Given 09/24/2016 4:22 PM EST 100 mg Given 09/23/2016 5:08 PM EST 100 mg Given 09/22/2016 9:33 PM EST 100 mg cefUROXime (ZINACEF) 750mg vial attach to sodium chloride 0.9% 100 mL Mini-Bag Plus 750 mg, Intravenous, EVERY 8 HOURS, 3 doses, First dose on Wed09/21/16 at 1830, Last dose on Wed09/22/16 at 1030, Administer over 30 Minutes, Attach to 100 mL sodium Chloride Mini-bag Plus. Give first dose at 8 hours after dose in operating room., Indication for (Active or Suspected): Prophylaxis Given 09/22/2016 12:05 PM EST 750 mg 200 mL /hr Given 09/22/2016 2:15 AM EST 750 mg 200 mL/hr Given 09/21/2016 6:14 PM EST 750 mg 200 mL/hr chlorhexidine (PERIDEX) 0.12 % oral solution 15 mL 15 mL, Oral, EVERY 12 HOURS SCHEDULED (2 times per day), First dose on Wed09/21/16 at 1230, Until Discontinued, Leoti teeth, Routine Given 09/25/2016 9:40 AM EST 15 mLs Given 09/23/2016 8:19 PM EST 15 mLs Given 09/22/2016 9:34 PM EST 15 mLs fentaNYL 50 mcg/mL infusion 0-100 mcg/hr (0-2 mL/hr), Intravenous, CONTINUOUS, Starting on Wed09/21/16 at 1230, Until Wed09/22/16 at 1036, Titrate to patient comfort, pain scale 1-3. Start at 25 mcg/hr, adjust by 25 mcg/hr every 15 minutes. Dose not to exceed 100 mcg/hour. Rate/Dose Verify 09/22/2016 10:00 AM EST 25 mcg/hr 0.5 mL/hr Rate/Dose Verify 09/22/2016 8:00 AM EST 25 mcg/hr 0.5 mL/ hr Rate/Dose Change 09/22/2016 7:51 AM EST 25 mcg/hr 0.5 mL/ hr fentaNYL bolus from bag 25 mcg 25 mcg, Intravenous, EVERY 1 HOUR PRN, Starting on Wed09/21/16 at 1206, Until Wed09/22/16 at 1036, Pain, For breakthrough pain while extubated., For breakthrough pain while extubated., Routine Bolus from Bag 09/21/2016 8:48 PM EST 25 mcg Bolus from Bag 09/21/2016 7:22 PM EST 25 mcg fluconazole (DIFLUCAN) tablet 200 mg 200 mg, Oral, DAILY, First dose on Wed09/22/16 at 0900, Until Discontinued, Routine, Indication for (Active or Suspected): Skin/Skin Structure Given 09/22/2016 9:54 AM EST 200 mg fluconazole (DIFLUCAN) tablet 200 mg 200 mg, Oral, DAILY, 9 doses, First dose (after last modification) on Wed09/23/16 at 0900, Last dose on Wed10/01/16 at 0900, Routine, Indication for (Active or Suspected): Skin/Skin Structure Given 09/25/2016 9:41 AM EST 200 mg Given 09/24/2016 8:28 AM EST 200 mg Given 09/23/2016 8:17 AM EST 200 mg furosemide (LASIX) injection 20 mg 20 mg, Intravenous, 2 TIMES DAILY, First dose on Wed09/23/16 at 1130, Until Discontinued Given 09/25/2016 9:41 AM EST 2 0 mg Given 09/24/2016 4:22 PM EST 20 mg Given 09/24/2016 8:26 AM EST 20 mg furosemide (LASIX) tablet 20 mg 20 mg, Oral, DAILY, 7 doses, First dose on Wed09/26/16 at 0900, Last dose on Wed10/02/16 at 0900, Routine hydrALAZINE (APRESOLINE) injection 10 mg 10 mg, Intravenous, EVERY 4 HOURS PRN, Starting on Wed09/22/16 at 0832, Until Wed09/23/16 at 1025, High Blood Pressure, sbp>110 Given 09/23/2016 8:18 AM EST 10 mg hydrALAZINE (APRESOLINE) injection 10 mg 10 mg, Intravenous, EVERY 4 HOURS PRN, Starting on Wed09/23/16 at 1024, Until Wed09/25/16 at 1834, High Blood Pressure, sbp>120 insulin regular human (HumuLIN;NovoLIN) 1unit/mL 150 Units in sodium chloride 0.9% 150 mL infusion 0.5-16 Units/hr (0.5-16 mL/hr), Intravenous, CHANGE BAG EVERY EVENING, First dose on Wed09/21/16 at 1230, Until Discontinued, Type 2 diabetes. Current blood glucose 240 - 299 Titration- aim for target range of 140 - 180 mg/dL. Check BG every hour unless otherwise indicated. [[ Initial bolus of 8 units, then begin continuous infusion at 5 units/hour. ]] Current BG less than 80 - Stop insulin. Re-check BG in 30 minutes and as soon as BG is greater than 80, restart with rate 50% of previous rate. If BG less than 70, treat per hypoglycemia protocol. If infusion stopped after previous rate had been 0.5 unit/hour, recheck every hour and when BG greater than 100 and higher than last test restart at 0.5 unit/hour. Current BG 80 - 139 - If BG dropped 10 mg/dL or more since last test, decrease rate by 50% and re-check in 30 minutes. Otherwise, decrease rate by 0.5 units/hour. Current BG 140 - 180 - If BG dropped 50 mg/dL or more since last test, decrease rate by 1 unit/hour. Otherwise, maintain same rate. Current BG 181 - 220 - If BG is lower than last test, maintain same rate. Otherwise, increase rate by 0.5 units/hour. Current BG 221 - 250 - If BG dropped 30 mg/dL or more since last test, maintain same rate. Otherwise, increase rate by 1 unit/hour. Current BG greater than 250 - Increase rate by 1 unit/hour AND bolus with Regular insulin IV as per IV Bolus Scale. Re-check BG in 30 minutes., Routine Rate/Dose Verify 09/21/2016 6:15 PM EST 0.5 Units/hr 0.5 mL/hr Continued Bag 09/21/2016 5:08 PM EST 0.5 Units/hr 0.5 mL/h r Rate/Dose Verify 09/21/2016 5:00 PM EST 0.5 Units/hr 0.5 m L/hr ketorolac (TORADOL) injection 15 mg 15 mg, Intravenous, ONCE, 1 dose, On Wed09/21/16 at 2215, Routine Given 09/21/2016 9:55 PM EST 15 mg ketorolac (TORADOL) injection 15 mg 15 mg, Intravenous, ONCE, 1 dose, On Wed09/22/16 at 0645, Routine Given 09/22/2016 6:35 AM EST 15 mg magnesium hydroxide (MILK OF MAGNESIA) oral suspension 10 mL 10 mL, Oral, DAILY, First dose on Wed09/23/16 at 0900, Until Discontinued, Post-op day 2. Do not use with renal insufficiency., Routine Given 09/23/2016 8:17 AM EST 10 mLs meTOPROLOL (LOPRESSOR) tablet 12.5 mg 12.5 mg, Oral, EVERY 12 HOURS SCHEDULED (2 times per day), First dose on Wed09/22/16 at 0900, Until Discontinued, Hold for HR<60. Hold for SP<90, Routine Given 09/23/2016 8:17 AM EST 12.5 mg Given 09/22/2016 9:34 PM EST 12.5 mg Given 09/22/2016 9:53 AM EST 12.5 mg meTOPROLOL tartrate (LOPRESSOR) tablet 25 mg 25 mg, Oral, EVERY 12 HOURS SCHEDULED (2 times per day), First dose (after last modification) on Wed09/23/16 at 2100, Until Discontinued, Hold for HR<60. Hold for SP<90, Routine Given 09/25/2016 9:41 AM EST 25 m g Given 09/24/2016 8:43 PM EST 25 mg Given 09/24/2016 8:29 AM EST 25 mg niCARdipine 0.2 mg/mL (Standard Adult and Kevin greater than 20 kg) infusion 0-15 mg/hr (0-75 mL/hr), Intravenous, CONTINUOUS, Starting on Wed09/21/16 at 1230, Until Wed09/22/16 at 1036, Titrate to SBP greater than 90 and less than 120 mmHg. Start at 5 mg/hour, titrate to maintain target SBP, adjust infusion rate by 2.5 mg/hour every 5 minutes to a maximum of 15 mg/hour. Initiate if nitroglycerin ineffective at maintaining target systolic BP., Routine Rate/Dose Change 09/22/2016 8:02 AM EST 15 mg/hr 75 mL/hr Rate/Dose Verify 09/22/2016 8:00 AM EST 10 mg/hr 50 mL/h r Rate/Dose Change 09/22/2016 7:51 AM EST 10 mg/hr 50 mL/h r NORepinephrine 16 mcg/mL (standard ADULT and Kevin greater than 20 kg) infusion 0-30 mcg/min (0-112.5 mL/hr), Intravenous, CONTINUOUS, Starting on Wed09/21/16 at 1230, Until Wed09/22/16 at 1036, Titrate to keep systolic blood pressure greater than 90 mmHg. Start at 2 mcg/minute and adjust by 2 mcg/min every 3 minutes. Dose not to exceed 30 mcg/minute. Begin if phenyleprine and/or vasopressin ineffective.Call pager # [phone] if initiated., Routine Rate/Dose Change 09/21/2016 2:27 PM EST 2 mcg/min 7.5 mL/hr Rate/Dose Verify 09/21/2016 2:00 PM EST 4 mcg/min 15 mL/h r Rate/Dose Verify 09/21/2016 1:00 PM EST 4 mcg/min 15 mL/h r ondansetron (ZOFRAN) injection 4 mg 4 mg, Intravenous, EVERY 8 HOURS PRN, Starting on Wed09/21/16 at 1205, Until Wed09/25/16 at 1834, Nausea Given 09/22/2016 5:11 PM EST 4 mg Given 09/22/2016 8:05 AM EST 4 mg Given 09/21/2016 9:55 PM EST 4 mg oxyCODONE (ROXICODONE) immediate release tablet 5-10 mg 5-10 mg, Oral, EVERY 4 HOURS PRN, Starting on Wed09/21/16 at 1205, Until Wed09/25/16 at 1834, Pain, For pain when taking by mouth. May repeat once in 30 minutes if pain not relieved. Give 5 mg 1 tab PO Q 4 hours PRN for pain >/= to 3-5/10. Give 5 mg 2 tabs PO Q 4 hours PRN for pain >/= to 6-8/10. Call provider for new pain management orders if pain not relieved after an appropriate amount of time or if regimen is not tolerated. Hold if patient appears over sedated., Routine Given 09/22/2016 8:30 AM EST 5 mg pantoprazole (PROTONIX) injection 40 mg 40 mg, Intravenous, DAILY, First dose on Wed09/21/16 at 1230, Until Discontinued, Reconstitute with 10 mL of normal saline to a concentration of 4 mg/mL and infuse slowly over 2 minutes. , Routine Given 09/21/2016 1:46 PM EST 40 mg pantoprazole (PROTONIX) tablet 40 mg 40 mg, Oral, DAILY, First dose on Wed09/21/16 at 1230, Until Discontinued, DO NOT CRUSH OR OPEN If unable to take PO, may give IV Given 09/25/2016 9:41 AM EST 40 mg Given 09/24/2016 8:29 AM EST 40 mg Given 09/23/2016 8:17 AM EST 40 mg potassium chloride (K-DUR/KLOR-CON) extended release tablet 10 mEq 10 mEq, Oral, DAILY, 7 doses, First dose on Wed09/26/16 at 0900, Last dose on Wed10/02/16 at 0900, Routine propofol (DIPRIVAN) infusion 0-50 mcg/kg/min ? 97.8 kg (0-29.34 mL/hr, rounded to 0-29.3 mL/hr), Intravenous, CONTINUOUS, Starting on Wed09/21/16 at 1230, Until Wed09/22/16 at 1036, Titrate to sedation level of RASS Goal (-) 1. Start at 10 mcg/kg/min, adjust rate by 5 mcg/kg/min every 3 minutes. Dose not to exceed 50 mcg/kg/minute. Discontinue upon extubation., Routine Rate/Dose Change 09/21/2016 2:08 PM EST 30 mcg/kg/min 17.6 mL/hr Rate/Dose Verify 09/21/2016 2:00 PM EST 49.932 mcg/kg/min 29.3 mL/hr Rate/Dose Verify 09/21/2016 1:00 PM EST 49.932 mcg/kg/min 29.3 mL/hr senna-docusate (PERICOLACE) 8.6-50 mg per tablet 2 tablet 2 tablet, Oral, DAILY, First dose on Wed09/22/16 at 2100, Until Discontinued, Post-op day 1, Routine Given 09/22/2016 9:33 PM EST 2 tablets sodium chloride 0.9 % flush 5 mL 5 mL, Intravenous, EVERY 8 HOURS, First dose on Wed09/22/16 at 1100, Until Discontinued, Routine Given 09/25/2016 3:00 AM EST 5 mLs Given 09/24/2016 8:44 PM EST 5 mLs Given 09/24/2016 11:00 AM EST 5 mLs sodium chloride 0.9% infusion 0-500 mL/hr, Intravenous, CONTINUOUS, Starting on Wed09/21/16 at 1230, Until Wed09/22/16 at 1036, Bolus 250 mL every 5 minutes as needed for volume replacement to maintain cardiac index greater than or equal to 2.0 L/min/M2. Maximum volume 2 L. Call warehouse selector for additional fluid orders: pager #[phone]. Rate/Dose Verify 09/22/2016 10:00 AM EST 10 mL/hr 10 mL/hr Rate/Dose Change 09/22/2016 8:12 AM EST 10 mL/hr 10 mL/h r Rate/Dose Verify 09/21/2016 2:00 PM EST 100 mL/hr 100 mL/ hr sodium chloride 0.9% infusion 10-30 mL/hr, Intravenous, DAILY PRN, Starting on Wed09/21/16 at 1206, Until Wed09/22/16 at 1036, Side port TKO rate, per [facility] nursing protocol. Rate/Dose Verify 09/21/2016 5:00 PM EST 30 mL/hr 30 mL/hr Rate/Dose Verify 09/21/2016 4:00 PM EST 30 mL/hr 30 mL/h r Rate/Dose Verify 09/21/2016 3:00 PM EST 30 mL/hr 30 mL/h r sodium chloride 0.9% infusion 10-30 mL/hr, Intravenous, DAILY PRN, Starting on Wed09/21/16 at 1206, Until Wed09/22/16 at 1036, Side port TKO rate, per CC nrusing protocol. Rate/Dose Verify 09/22/2016 10:00 AM EST 30 mL/hr 30 mL/hr Rate/Dose Verify 09/22/2016 8:00 AM EST 30 mL/hr 30 mL/h r Rate/Dose Verify 09/22/2016 12:00 AM EST 30 mL/hr 30 mL/ hr documented in this encounter Active and Recently Administered Medications Times are shown in EST. Scheduled Medication Order 09/23/2016 09/24/2016 09/25/2016 acetaminophen (TYLENOL) tablet 1,000 mg 1,000 mg, Oral, EVERY 6 HOURS SCHEDULED, First dose on Wed09/21/16 at 1800, Until Discontinued, For pain when taking by mouth , Routine 0600 (Given - Provider: Marcie Frazier RN)1302 (Given - Provider: Federico Apple RN)1708 (Given - Provider: Federico Apple RN) 0005 (Given - Provider: Alie Whitfield RN)0551 (Given - Provider: Alie Whitfield RN)1150 (Given - Provider: Marek Barnes RN)1852 (Given - Provider: Chaya Hill RN) 0000 (Not Given - Provider: Alie Whitfield RN - Reason: Patient/family refused)0600 (Not Given - Provider: Breanna Olivas RN - Reason: Patient/family refused)0942 (Given - Provider: Joselyn Caceres RN - Comment: not given at 0600)1600 (Due - Provider: Kendall Martínez [facility]) aspirin chewable tablet 81 mg(Linked Group 1) 81 mg, Oral, DAILY, First dose on Wed09/22/16 at 0900, Until Discontinued, Start on post-op day 1 in the AM., Routine 0817 (Given - Provider: Elsa Miguel RN) 0829 (Given - Provider: Marek Barnes RN) 0942 (Given - Provider: Joselyn Caceres RN) aspirin suppository 300 mg(Linked Group 1) 300 mg, Rectal, DAILY, First dose on Wed09/22/16 at 0900, Until Discontinued, Start on post-op day 1 in the AM, Routine 0817 (See Alternative - Provider: Elsa Miguel RN) 08 (See Alternative - Provider: Marek Barnes RN) 0942 (See Alternative - Provider: Joselyn Caceres RN) atorvastatin (LIPITOR) tablet 10 mg 10 mg, Oral, EVERY EVENING, First dose on Wed09/21/16 at 1700, Until Discontinued, Routine 170 (Given - Provider: Federico Apple RN) 162 (Given - Provider: Chaya Hill RN) buPROPion (WELLBUTRIN SR or ZYBAN) SR tablet 150 mg 150 mg, Oral, EVERY MORNING, First dose on Wed09/22/16 at 0700, Until Discontinued, DO NOT CRUSH OR OPEN, Routine 0602 (Given - Provider: Marcie Frazier RN) 0602 (Given - Provider: Alie Whitfield RN) 0649 (Given - Provider: Breanna Olivas RN) buPROPion (WELLBUTRIN SR) SR tablet 100 mg 100 mg, Oral, EVERY EVENING, First dose on Wed09/22/16 at 1700, Until Discontinued, DO NOT CRUSH OR OPEN, Routine 1708 (Given - Provider: Federico Apple RN) 162 (Given - Provider: Chaya Hill RN) chlorhexidine (PERIDEX) 0.12 % oral solution 15 mL 15 mL, Oral, EVERY 12 HOURS SCHEDULED (2 times per day), First dose on Wed09/21/16 at 1230, Until Discontinued, Leoti teeth, Routine 0900 (Not Given - Provider: Elsa Miguel RN - Reason: Patient/family refused)2018 (Given - Provider: Federico Apple RN) 0900 (Not Given - Provider: Marek Barnes RN - Reason: Patient/family refused)2099 (Not Given - Provider: Alie Whitfield RN - Reason: Patient/family refused) 0940 (Given - Provider: Joselyn Caceres, VALDO) fluconazole (DIFLUCAN) tablet 200 mg 200 mg, Oral, DAILY, 9 doses, First dose (after last modification) on Wed09/23/16 at 0900, Last dose on Wed10/01/16 at 0900, Routine, Indication for (Active or Suspected): Skin/Skin Structure 0817 (Given - Provider: Elsa Miguel RN) 0828 (Given - Provider: Marek Barnes RN) 0941 (Given - Provider: Joselyn Caceres, VALDO) furosemide (LASIX) injection 20 mg (CANCELED) 20 mg, Intravenous, 2 TIMES DAILY, First dose on Wed09/23/16 at 1130, Until Discontinued 1301 (Given - Provider: Federico Apple, VALDO)1708 (Given - Provider: Federico Apple, VALDO) 0826 (Given - Provider: Marek Barnes, VALDO)1622 (Given - Provider: Chaya Hill RN) 0941 (Given - Provider: Joselyn Caceres, VALDO) furosemide (LASIX) tablet 20 mg 20 mg, Oral, DAILY, 7 doses, First dose on Wed09/26/16 at 0900, Last dose on Wed10/02/16 at 0900, Routine magnesium hydroxide (MILK OF MAGNESIA) oral suspension 10 mL 10 mL, Oral, DAILY, First dose on Wed09/23/16 at 0900, Until Discontinued, Post-op day 2. Do not use with renal insufficiency., Routine 0817 (Given - Provider: Elsa Miguel RN) 09 (Not Given - Provider: Marek Barnes RN - Reason: Patient/family refused) 0940 (Not Given - Provider: Joselyn Caceres RN - Reason: Patient/family refused) meTOPROLOL (LOPRESSOR) tablet 12.5 mg (CANCELED) 12.5 mg, Oral, EVERY 12 HOURS SCHEDULED (2 times per day), First dose on Wed09/22/16 at 0900, Until Discontinued, Hold for HR<60. Hold for SP<90, Routine 08 (Given - Provider: Elsa Miguel RN) meTOPROLOL tartrate (LOPRESSOR) tablet 25 mg 25 mg, Oral, EVERY 12 HOURS SCHEDULED (2 times per day), First dose (after last modification) on Wed09/23/16 at 2100, Until Discontinued, Hold for HR<60. Hold for SP<90, Routine 2017 (Given - Provider: Federico Apple RN) 08 (Given - Provider: Marek Barnes RN)2042 (Given - Provider: Alie Whitfield RN) 0941 (Given - Provider: Joselyn Caceres RN) pantoprazole (PROTONIX) injection 40 mg(Linked Group 2) 40 mg, Intravenous, DAILY, First dose on Wed09/21/16 at 1230, Until Discontinued, Reconstitute with 10 mL of normal saline to a concentration of 4 mg/mL and infuse slowly over 2 minutes. , Routine 08 (See Alternative - Provider: Elsa Miguel RN) 08 (See Alternative - Provider: Marek Barnes RN) 0941 (See Alternative - Provider: Joselyn Caceres, VALDO) pantoprazole (PROTONIX) tablet 40 mg(Linked Group 2) 40 mg, Oral, DAILY, First dose on Wed09/21/16 at 1230, Until Discontinued, DO NOT CRUSH OR OPEN If unable to take PO, may give IV 08 (Given - Provider: Elsa Miguel RN) 08 (Given - Provider: Marek Barnes RN) 0941 (Given - Provider: Joselyn Caceres, VALDO) potassium chloride (K-DUR/KLOR-CON) extended release tablet 10 mEq 10 mEq, Oral, DAILY, 7 doses, First dose on Wed09/26/16 at 0900, Last dose on Wed10/02/16 at 0900, Routine senna-docusate (PERICOLACE) 8.6-50 mg per tablet 2 tablet 2 tablet, Oral, DAILY, First dose on Wed09/22/16 at 2100, Until Discontinued, Post-op day 1, Routine 2100 (Not Given - Provider: Federico Apple, VALDO - Reason: Patient/family refused) 2100 (Not Given - Provider: Alie Whitfield RN - Reason: Patient/family refused) sodium chloride 0.9 % flush 5 mL 5 mL, Intravenous, EVERY 8 HOURS, First dose on Wed09/22/16 at 1100, Until Discontinued, Routine 0300 (Not Given - Provider: Marcie Frazier RN - Reason: See comment - Comment: flushed at start of shift)1022 (Given - Provider: Elsa Miguel RN)2019 (Given - Provider: Federico Apple RN) 0300 (Given - Provider: Alie Whitfield RN - Comment: flushed earlier in shift)1100 (Given - Provider: Marek Barnes RN)2044 (Given - Provider: Alie Whitfield RN) 0300 (Given - Provider: Alie Whitfield RN - Comment: given earlier in shift)1100 (Not Given - Provider: Joselyn Caceres RN - Reason: See comment - Comment: given with AM lasix) PRN Medication Order 09/23/2016 09/24/2016 09/25/2016 bisacodyl (DULCOLAX) suppository 10 mg 10 mg, Rectal, DAILY PRN, Starting on Wed09/24/16 at 0000, Until Wed09/25/16 at 1834, Constipation, Starting post-op day 3., Routine hydrALAZINE (APRESOLINE) injection 10 mg (CANCELED) 10 mg, Intravenous, EVERY 4 HOURS PRN, Starting on Wed09/22/16 at 0832, Until Wed09/23/16 at 1025, High Blood Pressure, sbp>110 0818 (Given - Provider: Elsa Miguel, VALDO) hydrALAZINE (APRESOLINE) injection 10 mg 10 mg, Intravenous, EVERY 4 HOURS PRN, Starting on Wed09/23/16 at 1024, Until Wed09/25/16 at 1834, High Blood Pressure, sbp>120 ondansetron (ZOFRAN) injection 4 mg 4 mg, Intravenous, EVERY 8 HOURS PRN, Starting on Wed09/21/16 at 1205, Until Wed09/25/16 at 1834, Nausea oxyCODONE (ROXICODONE) immediate release tablet 5-10 mg 5-10 mg, Oral, EVERY 4 HOURS PRN, Starting on Wed09/21/16 at 1205, Until Wed09/25/16 at 1834, Pain, For pain when taking by mouth. May repeat once in 30 minutes if pain not relieved. Give 5 mg 1 tab PO Q 4 hours PRN for pain >/= to 3-5/10. Give 5 mg 2 tabs PO Q 4 hours PRN for pain >/= to 6-8/10. Call provider for new pain management orders if pain not relieved after an appropriate amount of time or if regimen is not tolerated. Hold if patient appears over sedated., Routine Linked Groups Order Group 1: aspirin chewable tablet 81 mgJump to med 81 mg, Oral, DAILY, First dose on Wed09/22/16 at 0900, Until Discontinued, Start on post-op day 1 in the AM., Routine Or aspirin suppository 300 mgJump to med 300 mg, Rectal, DAILY, First dose on Wed09/22/16 at 0900, Until Discontinued, Start on post-op day 1 in the AM, Routine Group 2: pantoprazole (PROTONIX) tablet 40 mgJump to med 40 mg, Oral, DAILY, First dose on Wed09/21/16 at 1230, Until Discontinued, DO NOT CRUSH OR OPEN If unable to take PO, may give IV Or pantoprazole (PROTONIX) injection 40 mgJump to med 40 mg, Intravenous, DAILY, First dose on Wed09/21/16 at 1230, Until Discontinued, Reconstitute with 10 mL of normal saline to a concentration of 4 mg/mL and infuse slowly over 2 minutes. , Routine documented in this encounter Care Teams Software Developer Manager Relationship Specialty Start Date End Date Deborah Quiroga, REHABILITATION INSPECTOR PCP - General Family Medicine 03/24/16 02/04/23 documented as of this encounter
--- OUTSIDE RECORDS SUMMARY | 2024-02-15 14:10 | XMS_ITS | Encounter Summary ---
Author Organization [facility] Address [facility] [place] [address] Care Team Providers Care Supervisor Paint Name Role Phone Deborah Quiroga APRN Primary Care Provider Encounter Details Date Type Department Care Team (Late st Contact Info) Description 07/17/2016 9:00 AM EST Office Visit Hematology and Oncology at [facility] [place] [id number] Markel Borjas MD [facility] [place] [address] Neutropenia, unspecified type Social History Tobacco Use [...] Sign Reading Time Taken Comments Blood Pressure 123/67 07/17/2016 8:52 AM EST Pulse 75 07/17/2016 8:52 AM EST Temperature 36.8 ??C (98.2 ??F) 07/17/2016 8:52 AM ES T Respiratory Rate 18 07/17/2016 8:52 AM EST Oxygen Saturation 98% 07/17/2016 8:52 AM EST Inhaled Oxygen Concentration - - Weight 97.1 kg (214 lb) 07/17/2016 8:52 AM EST Height 155.5 cm (5' 1.22) 07/17/2016 8:52 AM ES T Body Mass Index 40.14 07/17/2016 8:52 AM EST documented in this encounter Progress Notes * Markel Borjas MD - 07/17/2016 9:00 AM EST Hematology Outpatient Clinic [facility] Hematology Outpatient Consult Note CC: 60 [...] over the past 2-3 years, as outlined below: Work Up ?? Labs ?? Mar 2013: WBC 2.27 AMC 1.09 ALC 0.86 ?? December 2013: WBC 2.11 ?? Imaging ?? CT c/a/p (06/2016)- no lymphadenopathy or masses- essentially normal ?? Pathology ?? DIAGNOSIS BONE MARROW (PERIPHERAL SMEAR, ASPIRATE SMEAR, TOUCH PREP, CLOT SECTION, CORE ??BIOPSY); [OSR# [id number], COLLECTED 06/23/2016, 19 SLIDES]: ?1. ??Normocellular marrow [...] a clonal lymphoproliferative or myeloproliferative disorder (OSR# [id number]) Chromosome analysis on the marrow aspirate revealed a normal female karyotype; ?? 46,XX ?? PB Flow- DIAGNOSIS 1. No increased or abnormal immunophenotype T/NK/LGL or monoclonal B-cell ??populations identified. 2. No increased blast population present (see Discussion). INTERIM HISTORY ?? Pt here to review results. No fevers/ chills. Normal energy level. No change in medical history.No rashes. ?? Reiterates that she has never had frequent infections. No family history of leukopenia/ leukemia/ infections. Past Medical/Surgical History: 1. Leukopenia -element of neutropenia, as noted above 2. Aortic Stenosis -severe -AVR surgery pending 3. Hypercholesterolemia 4. Depression 5. Hypertension 6. 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 Family History: No known primary marrow disorders or hematologic malignancies HTN (father) Afib (brother) Medications: Reviewed in eD-H aspirin 81 mg EC tablet daily atorvastatin (LIPITOR) 10 mg tablet daily buPROPion (WELLBUTRIN SR) 100 mg tablet Sustained Release daily meTOPROLOL tartrate (LOPRESSOR) 25 mg tablet daily multivitamin (THERAGRAN) tablet daily ramipril (ALTACE) 10 mg Capsule daily spironolactone (ALDACTONE) 25 mg tablet daily Allergies: Reviewed in eD-H Review of Systems Besides what is mentioned in HPI, all other systems are negative Physical Exam: Vitals: 07/17/16 0852 BP: 123/67 Pulse: 75 Resp: 18 Temp: 36.8 ??C (98.2 ??F) Gen: Well-appearing woman, conversant and in no acute distress. HEENT: Sclerae anicteric; no oropharyngeal lesions. Neck: Supple; no palpable thyromegaly. Lungs: Clear to auscultation. Cardiovascular: Normal rate and regular rhythm; grade III/ HS murmur. Abd: Benign, without palpable hepatosplenomegaly. Lymphatics: No palpable lymphadenopathy. Skin: No jaundice, rash, ecchymoses or petechiae. Neuro: Grossly intact. Extremities: No edema. Labs: No results found for this or any previous visit (from the past 24 hour(s)). Labs will be drawn at [facility] next week Imaging As above - reviewed CT scan HematoPathology: As above- personally reviewed bone marrow Assessment: 60 year-old generally active, fairly healthy woman with known valvular heart disease and plans for upcoming AVR surgery to address critical , now with incidentally noted leukopenia and associated neutropenia, referred for definitive work-up. She has no significant history of infections. After a thorough work up, the etiology of the neutropenia is unknown. We have ruled out marrow disease (MDS, leukemia etc), LGL, and lymphoma. The remaining possibilities include medication induced leukopenia vs Chronic Idiopathic Neutropenia. Her lack of symptoms (infections) or family history make a congenital immunocompromising disorder less likely. Chronic Idiopathic Neutropenia is usually a benign condition, without significant clinical sequelae. I reviewed the patients history and med list. Both spironolactonIe and ASHLEIGH-I can cause neutropenia,albeit rarely. I am more suspicious of the ACEI because she had a low WBC at the appointment in 2013 when the Spironolactone was ordered. At this time, I feel her cardiac issues are the most serious,and would not change these meds for the purpose of diagnosing an asymptomatic leukopenia. Will consi kanwal talking to pt's pest control technician about a switch from ACEI to ARB once pt is stable after upcoming surgery. For the purposes of the surgery, I do not think further neutropenia workup is necessary prior to surgery It would be ideal if we could raise her ANC to above 1000 for the surgery and the immediate post op period. I would propose using GCSF to achieve this. I would like to give her a test dose next Wednesday, and re-measuring her ANC in 7-10 days after that. If the ANC increases, as I expect it to,I will plan on giving pt another dose roughly 5 days prior to the surgery. Recommendations/Plan: 1. Give Neulasta in [facility] (insurance reasons) 2. Recheck ANC 7-10 days later to check for response 3. Plan on giving Neulasta 5-7 days prior to surgery 4. RTC in 4 months- monitor for development of new hematologic findings. Markel Borjas MD * Markel Borjas MD - 07/17/2016 9:00 AM EST Images from the original note were not included. [facility] ON[facility] [address] Date: 07/17/16 Patient Name: Purnima Thacker : 1955 Diagnosis: neutropenia Referral to [site]: [facility] Orders: ? Labs: Fax results to . [x] Draw CBC, copper level, CMV PCR, mononucleosis screen on 07/20 Repeat CBC on 07/30 (to measure response of WBC after Neulasta) ? Growth factor: [x] Neulasta 6mg SQ injection x 1 on 07/20/2016 Signature: Markel Borjas MD beeper # [id number] documented in this encounter Plan of Treatment Upcoming Encounters Date Type Department Care Team (Late st Contact Info) Description 02/22/2024 4:15 PM EDT Office Visit Dermatology at [address] [place] [address] Marek Bonilla MD [address] DERMATOLOGY [place], [place] [id number] 06/05/2024 11:30 AM EST Office [place] [address] Magdalena Peralta MD [facility] [address] [place] [address] documented as of this encounter Results * (ABNORMAL) CBC (with Diff) (07/31/2016 9:40 AM EST) WBC 2.23(EXTER NAL/ABN) 4.4 - 10.8 EXTERNAL LAB Hemoglobin 12.6 12.0 - 16.0 EXTERNAL LAB Hematocrit 37.7 36.0 - 46.0 EXTERNAL LAB Platelets 167 130 - 400 EXTERNAL LAB Neutr Abs (ANC) 1.17(EXTER NAL/ABN) 1.2 - 6.7 EXTERNAL LAB Blood specimen (specimen) 07/31/2016 9:40 AM EST Markel Borjas MD HEMATOLOGY ORDERAB LES Performing Organization Address [facility] Co de Phone Number EXTERNAL LAB * Mononucleosis Screen (07/20/2016 10:30 AM EST) Pathologist [facility] [place] Screen neg neg - neg EXTERNAL LAB Blood specimen (specimen) 07/20/2016 10:30 AM EST Markel Borjas MD CHEMISTRY ORDERABL ES Performing Organization Address [facility] Co de Phone Number EXTERNAL LAB * Copper, serum (07/20/2016 10:30 AM EST) Pathologist [facility] Copper 1.09 0.75 - 1.45 EXTERNAL LAB Blood specimen (specimen) 07/20/2016 10:30 AM EST Markel Borjas MD CHEMISTRY ORDERABL ES Performing Organization Address [facility] Co de Phone Number EXTERNAL LAB * CMV PCR, Quantitative (07/20/2016 10:30 AM EST) Pathologist [facility] CMV PCR,Quantitati ve undetected EXTERNAL LAB Blood specimen (specimen) 07/20/2016 10:30 AM EST Markel Borjas MD IMMUNOLOGY ORDERAB LES Performing Organization Address City/[facility]/ZIP Co de Phone Number EXTERNAL LAB * (ABNORMAL) CBC (with Diff) (07/20/2016 10:30 AM EST) WBC 1.61(A) 4.4 - 10.8 EXTERNAL LAB Hemoglobin 12.3 12.0 - 16.0 EXTERNAL LAB Hematocrit 37.2 36.0 - 46.0 EXTERNAL LAB Platelets 229 130 - 400 EXTERNAL LAB Blood specimen (specimen) 07/20/2016 10:30 AM EST Markel Borjas MD HEMATOLOGY ORDERAB LES EXTERNAL LAB documented in this encounter Visit Diagnoses Diagnosis Neutropenia, unspecified type documented in this encounter Care Teams Supervisor Paint Relationship Specialty Start Date End Date Deborah Quiroga, LAND MANAGEMENT FORESTER PCP - General Family Medicine 03/24/16 02/04/23 documented as of this encounter
--- OUTSIDE RECORDS SUMMARY | 2024-02-15 14:10 | XMS_ITS | Encounter Summary ---
Author Organization [facility] [place] [address] Care Team Providers Care Automobile Assembler Name Role Phone Deborah Quiroga APRN Primary Care Provider [phone] Encounter Details Date Type Department Care Team (Late st Contact Info) Description 07/31/2016 Orders Only Hematology [place] [address] Alexandrea Greenwood RN Neutropenia, unspecified [...] PM EDT Office Visit Dermatology at [address] [place] [address] Marek Bonilla MD [address] [place] [address] 06/05/2024 11:30 AM EST Office [place] [address] Magdalena Peralta MD [facility] [place] [address] documented as of this encounter Results * (ABNORMAL) CBC (with Diff) (08/04/2016 12:05 PM EST) WBC 1.52(EXTER NAL/ABN) 4.4 - 10.8 EXTERNAL LAB Hemoglobin 12.3 12.0 - 16.0 EXTERNAL LAB Hematocrit 37.3 36.0 - 46.0 EXTERNAL LAB Platelets 236 130 - 400 EXTERNAL LAB Neutr Abs (ANC) 0.56(EXTER NAL/ABN) 1.2 - 6.7 EXTERNAL LAB Blood specimen (specimen) 08/04/2016 12:05 PM EST Markel Borjas MD HEMATOLOGY ORDERAB LES EXTERNAL LAB documented in this encounter Visit Diagnoses Diagnosis Neutropenia, unspecified type documented in this encounter Care Teams Automobile Assembler Relationship Specialty Start Date End Date Deborah Quiroga APRN PCP - General Family Medicine 03/24/16 02/04/23 documented as of this encounter
--- OUTSIDE RECORDS SUMMARY | 2024-02-15 14:10 | XMS_ITS | Encounter Summary ---
[place] [address] Care Team Providers Care Rotary Saw Operator Name Role Phone Ashley Quirogan Cornelius ANURAG Primary Care Provider [phone] Reason for Visit * Reason Onset Date Comments Medication Management 09/14/2016 Encounter Details Date Type Department Care Team (Late st Contact Info) Description 09/14/2016 Telephone Hematology [place] [phone] Alexandrea Greenwood, sanding machine tender Management Social History Tobacco Use Types Packs/Day Years [...] Telephone Encounter - Alexandrea Greenwood RN - 09/14/2016 9:12 AM EST Message received from clerical secretary: Purnima called, asking for clarification on when Prosper wanted her to take the Claritin. She can be reached at home. Per Dr. Borjas: claritin the 09/15/16, 09/16/16, 09/17/16 (the night before neulasta, the night of neulasta injection and the night after). RN instructed pt on Dr. Borjas's claritin directions above. Prunima repeated directions back accurately. Pt will call clinic with further quesitons or concerns. documented in this encounter Plan of Treatment Upcoming Encounters Date Type Department Care Team (Late st Contact Info) Description 02/22/2024 4:15 PM EDT Office Visit Dermatology at [place] [address] [place] [address] Marek Bonilla MD [address] [facility] [place] [address] 06/05/2024 11:30 AM EST Office [place] [address] Magdalena Peralta MD [facility] [place] [address] documented as of this encounter Visit Diagnoses Not on filedocumented in this encounter Care Teams Rotary Saw Operator Relationship Specialty Start Date End Date Deborah Quiroga APRN PCP - General Family Medicine 03/24/16 02/04/23 documented as of this encounter
--- OUTSIDE RECORDS SUMMARY | 2024-02-15 14:10 | XMS_ITS | Encounter Summary ---
Author Organization [facility] [place] [address] Care Team Providers Care Welfare Administrator Name Role Phone Ashley Quirogan Sylvia ANURAG Primary Care Provider [phone] Encounter Details Date Type Department Care Team (Late st Contact Info) Description 07/13/2016 External [place] [address] Provider, Scanning Social History Tobacco Use Types Packs/Day Years [...] 4:15 PM EDT Office Visit Dermatology at [address] [place] [address] Marek Bonilla MD [address] [place] [address] [place] [address] 06/05/2024 11:30 AM EST Office [place] [address] Magdalena Peralta MD [facility] [place] [address] documented as of this encounter Procedures Procedure Name Priority Date/Time Associated Diagnosis Comments SURGICAL PATHOLOGY SCAN Routine 07/13/2016 documented in this encounter Results * Scan Doc: Surgical Pathology (07/13/2016) Nitesh Pina Jr., MD MEDIA MGR SCAN EXT O RDR/RSLT documented in this encounter Visit Diagnoses Not on filedocumented in this encounter Care Teams Welfare Administrator Relationship Specialty Start Date End Date Deborah Quiroga, SCREEN MACHINE OPERATOR PCP - General Family Medicine 03/24/16 02/04/23 documented as of this encounter
--- OUTSIDE RECORDS SUMMARY | 2024-02-15 14:10 | XMS_ITS | Encounter Summary ---
[place] [address] Care Team Providers Care Director Of Product Management Name Role Phone Deborah Quiroga ANURAG Primary Care Provider [phone] Reason for Visit * Reason Onset Date Comments Medical Care Coordination 07/17/2016 Encounter Details Date Type Department Care Team ([facility] Contact Info) Description 07/17/2016 Telephone Hematology [place] [phone] Alexandrea Greenwood RN Medical Care Coordination Social [...] Telephone Encounter - Alexandrea Greenwood RN - 07/17/2016 12:07 PM EST Message received from psychiatric secretary: Injection/Infusion Referral Call placed to [phone]). Spoke w/ Pasquale. Services to be provided for pt are: Labs @ 10am ([facility]) & Neulasta @ 11am on 07/20/16, CBC only on 07/30/16 Pasquale confirmed they would provide services to pt and I left [facility] for pt to call for appt info. Pt demographics, office note, med list and orders faxed to [facility] & [facility] documented in this encounter Plan of Treatment Upcoming Encounters Date Type Department Care Team (Late st Contact Info) Description 02/22/2024 4:15 PM EDT Office Visit Dermatology at [place] [address] [place] [address] Marek Bonilla MD [address] [place] [address] 06/05/2024 11:30 AM EST Office [place] [address] Magdalena Peralta MD [facility] [place] [address] documented as of this encounter Visit Diagnoses Not on filedocumented in this encounter Care Teams Director Of Product Management Relationship Specialty Start Date End Date Deborah Quiroga, HEARING THERAPY DIRECTOR PCP - General Family Medicine 03/24/16 02/04/23 documented as of this encounter
--- OUTSIDE RECORDS SUMMARY | 2024-02-15 14:10 | XMS_ITS | Encounter Summary ---
Author Organization [facility] [place] [address] Care Team Providers Care Mill Supervisor Name Role Phone Deborah Quiroga APRN Primary Care Provider [phone] Encounter Details Date Type Department Care Team (Late st Contact Info) Description 07/22/2016 External Results Hematology [place] [address] Alexandrea Greenwood RN Neutropenia, unspecified [...] PM EDT Office Visit Dermatology at [address] [place] [address] Marek Bonilla MD [address] [facility] [place] [address] 06/05/2024 11:30 AM EST Office Visit [place] [address] Magdalena Peralta MD [facility] [place] [address] documented as of this encounter Procedures Procedure Name Priority Date/Time Associated Diagnosis Comments COPPER, SERUM Routine 07/20/2016 10:30 AM EST Neutropenia, unspecified type CMV PCR, QUANTITATIVE Routine 07/20/2016 10:30 AM EST Neutropenia, unspecified type MONONUCLEOSIS SCREEN ([facility]) Routine 07/20/2016 10:30 AM EST Neutropenia, unspecified type CBC (WITH DIFF) Routine 07/20/2016 10:30 AM EST Neutropenia, unspecified type documented in this encounter Results * Copper, serum (07/20/2016 10:30 AM EST) Copper 1.09 0.75 - 1.45 EXTERNAL LAB Blood specimen (specimen) 07/20/2016 10:30 AM EST Markel Borjas MD CHEMISTRY ORDERABL ES Performing Organization Address [facility]/ZIP Co de Phone Number EXTERNAL LAB * CMV PCR, Quantitative (07/20/2016 10:30 AM EST) CMV PCR,Quantitati ve undetected EXTERNAL LAB Blood specimen (specimen) 07/20/2016 10:30 AM EST Markel Borjas MD IMMUNOLOGY ORDERAB LES EXTERNAL LAB * Mononucleosis Screen (07/20/2016 10:30 AM EST) [place] Screen neg neg - neg EXTERNAL LAB Blood specimen (specimen) 07/20/2016 10:30 AM EST Markel Borjas MD CHEMISTRY ORDERABL ES Performing Organization Address [facility]/ZIP Co de Phone Number EXTERNAL LAB * [...] type documented in this encounter Care Teams Mill Supervisor Relationship Specialty Start Date End Date Deborah Quiroga, INSTRUCTIONAL TECHNOLOGY TEACHER PCP - General Family Medicine 03/24/16 02/04/23 documented as of this encounter
--- OUTSIDE RECORDS SUMMARY | 2024-02-15 14:10 | XMS_ITS | Encounter Summary ---
Author Organization Formerly [facility] [place] [address] Care Team Providers Care Corncob Pipe Supervisor Name Role Phone Ashley Quirogazac Shields APRN Primary Care Provider [phone] Reason for Visit * Auth/Cert Specialty Diagnoses / Procedures Referred By Crispin t Referred To Contact Diagnoses Aortic stenosis Procedures PRO REPLACE AORT VALV, PROSTH VALV @REPLACE AORTIC VALVE, OPEN, W\CPB, W\PROSTHETIC VALVE (WRVU 41.32) Referral ID Status Reason Start Date Expiration Date Visits Re quested Visits Authorized [id number] 1 1 Encounter Details Date Type Department Care Team (Late st Contact Info) Description 09/21/2016 7:30 AM EST - 09/21/2016 12:04 PM EST [place] [address] Alirio Esparza MD [facility] DR [place] [address] @REPLACE AORTIC VALVE, OPEN, W\CPB, W\PROSTHETIC VALVE (WRVU 41.32) Social History Tobacco Use Types Packs/Day Years [...] Patient Age: 61 y.o. Birthdate: 1955 Language: Bahraini Race: White Ethnicity: Not nor Admit Date: 09/21/2016 Discharge Date: 09/25/2016 Attending Physician: Alirio Esparza MD Follow-up Recommendations for Providers: Please continue routine management of cardiovascular risk factors including blood pressure, lipids,glucose, etc. Please note any changes to medications. Patient to follow-up with PCP, Deborah Quiroga APRN, in 1-2 weeks. Patient to follow-up with Sealing Machine Operator, Dr. Antelmo Burrell, in two weeks. Patient to follow-up with Cardiac Surgery, Dr. Alirio Esparza, to be scheduled for before 10/19/2016, with CXR, EKG, and Echo. Inpatient Provider Contact Information: [facility] Section of Cardiac [place] [facility] [place] [address] FAX [phone] Discharge Diagnoses (Hospital Problems) Primary Diagnoses: Secondary [...] @REPLACE AORTIC VALVE, OPEN, W\CPB, W\PROSTHETIC VALVE ([facility]) performed by Alirio Esparza MD at [facility] MAIN OR ??? Pro aortoplas for supravalv sten N/A 09/21/2016 @AORTOPLASTY FOR SUPRAVALVULAR STENOSIS (VU 29.33) performed by Alirio Esparza MD at [facility] MAIN OR Prior To Admission Medications Prescriptions [...] Hospital Course: Purnima Thacker was admitted to [facility] on 09/21/2016 via the Same Day Program. [...] every 6 hours when experiencing pain -05/11.). 1000 mg Quantity: 30 tablet Refills: 5 furosemide 20 mg Tab Commonly known as: LASIX Take 1 tablet by mouth daily for 7 days. Start taking on: 09/26/2016 20 mg Quantity: 7 tablet Refills: 0 oxyCODONE 5 mg Tab Commonly known as: ROXICODONE Take 1 tablet by mouth every 4 hours as needed for Pain (Take 5mg every 4 hours for pain -05/11 asneeded.) for up to 30 days. 5 [...] Alirio Esparza and/or the Cardiac Surgery Physician Justice Of The Peace Team may be reached at . Antibiotic prophylaxis: You will need to take antibiotics prior to many invasive tests and treatments, such as dental cleaning, which should be done every 6 months. Your primary care physician or your dentist can prescribe this medication. Please refer to the card with the [place] [employer] Guidelines for more information. You have been provided with 3 copies of this card. Keep one for your self. Give one to your primary care physician and one to your dentist. Please refer to the [place] [employer] Guidelines for more information. Good [...] Dr. Alirio Jones. You may use a [place] Track or treadmill but avoid any pulling [...] friends, go to a movie, go to mandaen, etc. Heavy activities: No hunting, skiing, jogging, [...] should resume a low fat, low cholesterol, [place] [employer] Diet. Driving: No driving until [...] you with your appointment information. Cardiac Rehabilitation: Purnimakary Thacker was seen today regarding participation in the outpatient Phase 2 Cardiac Rehabilitation at [facility]. The patient agrees to a referral to this program. The referral will be sent at discharge and the patient should be contacted by the program within 1- 2 weeks from discharge. Future Appointments and Orders Future Appointments Provider Department Dept Phone 11/20/2016 11:30 AM Markel Borjas MD [facility] [phone] Future Orders Complete By Expires Echocardiogram Transthoracic([facility]) [OQK733 Custom] 10/18/2016 (Approximate) 09/18/2017 Process Instructions: If the Echocardiogram is to be PERFORMED in a location other than [place]--STOP and order [id number], Echocardiogram South/External. Scheduling Instructions: Questions: Is a Bubble Study requested?: No Does the patient have Congenital Heart Disease?: No Does patient require sedation?: None GA rationale: Should this service be billed to the research sponsor?: EKG 12 Lead [EKG1 Custom] 10/18/2016 (Approximate) 09/25/2017 Process Instructions: Scheduling Instructions: Questions: Which location will this be performed?: [place] Is a rhythm strip needed?: No If EKG Reason is Pre-op Evaluation, indicate diagnosis for surgery.: Should this service be billed to the research sponsor?: XR Chest PA & Lateral (Generic) [13007 [id number] Custom] 10/18/2016 (Approximate) 09/25/2017 Process Instructions: Scheduling Instructions: Questions: Where will study be performed?: [facility]- Radiology Portable exam?: No Reason for exam and clinical history: s/p AVReplacement, patch annuloplasty 1 month f/u Other pertinent information: Stat read required?: Date of injury if applicable: Requested Time: Referral to Cardiac Rehab [QFI582 Custom] As directed Process Instructions: If no progress note charted, please enter Clinical details in comments. Scheduling Instructions: Questions: My question or request is: s/p AVR. Cardiac rehab at [facility] Referral to Home Health - at DISCHARGE [RDS8700 CPT(R)] As directed Process Instructions: Scheduling Instructions: Comments: DOCUMENTATION FOR VNA SERVICES (INCLUDING THOSE PATIENTS WITH MEDICARE COVERAGE REQUIRING HOME VNA SERVICES AND/OR HOSPICE SERVICES) PATIENT'S LOCATION: Purnima M Kirstie [address] [place] [phone] (home) No relevant phone numbers on file. Bounty Hunter's Name: self In discussion with the attending physician, it is certified that this patient is under their care and that they, or a Nurse Practitioner, or Physician Justice Of The Peace who is working directly with them, hada [...] for services as follows: HOME HEALTH AGENCY: [facility] PHONE: [phone] FAX: [phone] RN orders: Cardiopulmonary assessment, incisional assessment, assess [...] issues please call the Cardiac SurgeryOffice at [phone] FOR MEDICARE ONLY: In discussion with the [...] noted. Questions: Agency name and contact information: [facility] Patient location post discharge: home What services are requested: Registered Nurse Physical Therapy Occupational Therapy Start date: Responsible MD post discharge contact info: Arrangements for VNA/home care: As above. VN RN OR PCP TO PLEASE REMOVE CHEST TUBE SUTURES ON OR AFTER 09/30/16 Signed: Crispin Aranda PA-C 09/25/2016 [facility] Section of Cardiac Surgery [facility] [place] [address] FAX [phone] Date: 09/25/2016 CC: ANURAG Alford Caryn E, APRN [address] [place] [address] documented in this encounter Discharge Instructions * [...] Alirio Esparza and/or the Cardiac Surgery Physician Justice Of The Peace Team may be reached at . Antibiotic prophylaxis: You will need to take antibiotics prior to many invasive tests and treatments, such as dental cleaning, which should be done every 6 months. Your primary care physician or your dentist can prescribe this medication. Please refer to the card with the [place] [employer] Guidelines for more information. You have been provided with 3 copies of this card. Keep one for your self. Give one to your primary care physician and one to your dentist. Please refer to the [place] [employer] Guidelines for more information. Good [...] Dr. Alirio Jones. You may use a [place] Track or treadmill but avoid any pulling [...] friends, go to a movie, go to mandaen, etc. Heavy activities: No hunting, skiing, jogging, [...] should resume a low fat, low cholesterol, [place] [employer] Diet. Driving: No driving until [...] the outpatient Phase 2 Cardiac Rehabilitation at [facility]. The patient agrees to a referral to [...] PM EST Cardiac Surgery Progress Note: ID: [id number] S/p AVR, patch aortoplasty POD#2. PMH of [...] %] I/O last 3 completed shifts: In: 1993 [P.O.:1970; I.V.:24] Out: 110 [Urine:1105] I/O this shift: In: 660 [P.O.:660] [...] Gas) No results found for: PHART, PO2ART, STC3OTW Assessment/Plan: TPW out this am. (+) BM. [...] Signed: Crispin Aranda PA-C 09/24/2016 Team pager: [phone]; [phone] after 5pm [facility] Section of Cardiac Surgery * Leonor Henson S, NETBACKUP ADMIN - 09/23/2016 10:48 AM EST Cardiac Surgery Progress Note: ID: [id number] s/p AVR, patch aortoplasty POD#2. PMH of Neutropenia, HLD, HTN, Depression, obesity,. EF- 60% 24 Hour Events: transferred from CV to ICCU, doing well, no overnight events [...] of edema Incisions: sternotomy dressing C/D/I Tubes/Lines/Drains: servando KAPLAN-to be dc'd LABS: Recent Labs 09/22/16 0400 [...] Gas) No results found for: PHART, PO2ART, [id number] Assessment/Plan: s/p AVR, patch aortoplasty POD#2. PMH of Neutropenia, HLD, HTN, Depression, obesity, . Transferred from [facility] yesterday and doing well. Pathway. Will dc al today. To maintain SBP<120 Neuro: frequent neuro [...] Surgeon on rounds. Signed: Leonor Henson APRN [facility] Section of Cardiac Surgery Date: 09/23/2016 * Nico Palacios PA - 09/22/2016 9:56 AM EST Cardiac Surgery Progress Note: ID: [id number] s/p AVR, patch aortoplasty POD#1. PMH of [...] NT, ND, soft. Ext: Moves all extremities. [place], well perfused. Incisions: C/D/I Tubes/Lines/Drains: PIV, leanna, [...] Attending Surgeon on rounds. Signed: EKATERINA KIM [facility] Section of Cardiac Surgery Date: 09/22/2016 * [...] ??C (98.6 ??F)] Heart Rate: [75-93] Resp: [9-17] BP: (98-132)/(51-53) SpO2: [97 %-100 %] Heart [...] documented in this encounter H&P Notes * Aliroi Esparza MD - 09/21/2016 7:10 AM EST [...] Outcome (s) achieved Date Met: 09/25/16 09/25/16 6645 Coping/Psychosocial Plan Of Care Reviewed With patient Plan of Care Review Progress improving OUTCOME EVALUATION NOTE: OUTCOME SUMMARY: Pt had uneventful shift. A&O. VSS on RA. Denied CP or SOB. Pt IND in room and weems. Seen by PT.Refer to notes for details. Incisions WNL. Redness noted. aware and not worried. SR w/ 1st [...] health, home with outpatient services Lalitha Cohen SPTA Pager: [phone] Inpatient Physical Therapy Patient status, treatment interventions, and goals discussed with student. I am in agreement with all details and associated flowsheet rows as documented and was present for all aspects of the patient treatment session. Nery Jaramillo PTA Pager [phone] Problem: Acute Rehab Services Goal & Intervention Plan Goal: Bed Mobility Goal Stand Alone Therapy Goal Outcome: Ongoing (Interventions Implemented as Appropriate) 09/22/16 1611 09/25/16 0947 Bed Mobility Goal Bed Mobility Goal, Time to Achieve 4 days -- Bed Mobility Goal, Activity Type scoot/bridge;supine to sit/sit to supine -- Bed Mobility Goal, Huxley Level independent -- Bed Mobility Goal, Additional Goal able to abide sternal precautions during transfers -- Bed Mobility Goal, Outcome Achieved -- goal partially met Bed Mobility Goal, Reason Goal Not Met -- (progressing) Goal: Gait Training Goal Stand Alone Therapy Goal Outcome: Outcome (s) achieved Date Met: 09/25/16 09/22/16 1611 09/25/16 0947 Gait Training Goal Gait Training Goal, Date Established 09/22/16 -- Gait Training Goal, Time to Achieve 4 days -- Gait Training Goal, Hux[place] Level independent -- Gait Training Goal, Distance [...] Outcome: Ongoing (Interventions Implemented as Appropriate) 09/23/16 034 Discharge Needs Assessment Concerns To Be Addressed [...] Goal: Plan of Care Review 09/23/16 0347 09/24/16 0005 Coping/Psychosocial Plan Of [...] * Plan of Care - Nery Jaramillo MIXING AND MOLDING MACHINE OPERATOR - 09/23/2016 2:23 PM EST Problem: Patient [...] with assist, home with home health [facility] Pager: [phone] Inpatient Physical Therapy Patient status, treatment interventions, and goals discussed with student. I am in agreement with all details and associated flowsheet rows as documented and was present for all aspects of the patient treatment session. Nery Jaramillo PTA Pager [phone] Problem: Acute Rehab Services Goal & Intervention Plan Goal: Bed Mobility Goal Stand Alone Therapy Goal Outcome: Ongoing (Interventions Implemented as Appropriate) 09/22/16161009/23/161411 Bed Mobility Goal Bed Mobility Goal, Time to Achieve 4 days -- Bed Mobility Goal, Activity Type scoot/bridge;supine to sit/sit to supine -- Bed Mobility Goal, Hux[place] Level independent -- Bed Mobility Goal, Additional Goal able to abide sternal precautions during transfers -- Bed Mobility Goal, Outcome Achieved -- goal ongoing Bed Mobility Goal, Reason Goal Not Met -- (progressing) Goal: Gait Training Goal Stand Alone Therapy Goal Outcome: Ongoing (Interventions Implemented as Appropriate) 09/22/16 16109/23/16 141 Gait Training Goal Gait Training Goal, Date Established 09/22/16 -- Gait Training Goal, Time to Achieve 4 days -- Gait Training Goal, Hux[place] Level independent -- Gait Training Goal, Distance to Achieve ascend and descends 2 steps independently -- Gait Training Goal, Outcome -- goal ongoing Gait Training Goal, Reason Goal Not Met -- (progressing) Goal: Goal Transfer Training Stand Alone Therapy Goal Outcome: Outcome (s) achieved Date Met: 09/23/16 09/22/16 16109/23/162 Goal Transfer Training Transfer Training Goal, Time to Achieve 4 days -- Transfer Training Goal, Activity Type yej-ta-shhsv/jzmqi-ss-uhx;mgd-cb-eloos/rhvex-cf-jps -- Transfer Train Goal, Hux[place] Level independent -- Transfer Training Goal, Additional Goal abides sternal precautions -- Transfer Training Goal, Outcome -- goal met * Consult Note - Jana Crenshaw RN - 09/23/2016 9:41 AM EST [facility] Purnima Thacker was seen today regarding participation in the outpatient Phase 2 Cardiac Rehabilitation at [facility]. The patient agrees to a referral to this program. The referral will be sent at discharge and the patient should be contacted by the Program within 1- 2 weeks from discharge. * Plan of Care - Marcie Frazier RN - 09/23/2016 3:51 AM EST Problem: Patient Care Overview Goal: Plan of Care Review Outcome: Ongoing (Interventions Implemented as Appropriate) 09/23/16 0347 Coping/Psychosocial Plan Of Care Reviewed With patient [...] Ongoing * Plan of Care - Nicole Hernandez PT - 09/22/2016 4:19 PM EST Problem: Patient Care Overview Goal: Plan of Care Review Outcome: Ongoing (Interventions Implemented as Appropriate) 09/22/16 161 Coping/Psychosocial Plan Of Care Reviewed With patient [...] Another Service: (cardiac rehab) NICOLE HERNANDEZ, PT Pager:[phone] Inpatient Physical Therapy Problem: Acute Rehab Services Goal & Intervention Plan Goal: Bed Mobility Goal Stand Alone Therapy Goal Outcome: Ongoing (Interventions Implemented as Appropriate) 09/22/16 1611 Bed Mobility Goal Bed Mobility Goal, Time to Achieve 4 days Bed Mobility Goal, Activity Type scoot/bridge;supine to sit/sit to supine Bed Mobility Goal, Hux[place] Level independent Bed Mobility Goal, Additional Goal able to abide sternal precautions during transfers Goal: Gait Training Goal Stand Alone Therapy Goal Outcome: Ongoing (Interventions Implemented as Appropriate) 09/22/16 1611 Gait Training Goal Gait Training Goal, Date Established 09/22/16 Gait Training Goal, Time to Achieve 4 days Gait Training Goal, Hux[place] Level independent Gait Training Goal, Distance to Achieve ascend and descends 2 steps independently Goal: Goal Transfer Training Stand Alone Therapy Goal Outcome: Ongoing (Interventions Implemented as Appropriate) 09/22/16 1611 Goal Transfer Training Transfer Training Goal, Time to Achieve 4 days Transfer Training Goal, Activity Type yia-pl-uusbb/gjkou-vr-hpt;rot-gd-ivtha/kfpnc-kn-cto Transfer Train Goal, Hux[place] Level independent Transfer Training Goal, Additional Goal [...] of completing AD's at home, chooses her tpdizr-cx-ozg, Martha Thacker (home) for her DPOAH, 2nd choice in friend, Nitesh Leroy, [place], [place] Current Coping/Education/Information Needs: patient sitting up in recliner, awake, alert, calmly answers questions appropriately, demonstrates understanding of her current health situation. She will be moving from CV to ICCU later today. Current Functional Ability: 1 assist, IV pole Functional Status Prior to Admission: independent physically w/ADL's Home Environment: lives alone in single family home, 2 steps to enter, one level living, woodstove in basement but has back-up heating system so she doesn't need to load woodstove Social & Family Supports/Community Resources: support from her two brothers who live close by, Rashad & Raymond, and her azfbli-cu-mip Martha Thacker who she has chosen to be her DPOAH. Also has a friend Nitesh Leroy who lives in [place], [place], also her DPOAH choice. Behavioral Health History: none on file in [facility] Substance Use/Abuse: none on file in [facility] Other Pertinent/Service Specific Information: none Health/Prescription Coverage: Primary Insurance: [employer] Secondary Insurance: none Prescription Coverage: yes, per patient no issues Preferred Pharmacy: ?? Other: none Primary Care Provider: Deborah Quiroga, NETBACKUP ADMIN [phone] Patient/Caregiver Goals of Treatment: per medical team recommendations at discharge for CT surgery Potential Needs for Transition of Care: Rehab/SNF: TBD Home Health: TBD DME: no Dialysis: no Community Resources: non3 Transportation: ride home with a friend Other: none Anticipated Barriers to Discharge/Special Considerations: none anticipated at this time Plan: patient will need VNA services at discharge. The patient/sales representative printing has been provided a list of Home Health Agencies/DME vendors which servetheir preferred geographic area. A letter describing our affiliations was reviewed with them and they were educated about their right to choose where referrals are placed. Patient requests referral to: [facility] [employer]. PHONE: [phone] FAX: [phone] Expected date of discharge: Fri/Sat? CM called VNA to confirm referral, talked with VALDO Bunn/intake who stated she was familiar w/patient & would monitor her progress through curaspan. Referral routed to the Fowl Blood Tester for matching with agency/vendor and to provide any required information. A member of the Care Management team will continue to monitor progress, follow for continuity of care and assist with transition of care planning. Amanda Moreno RN Pager: [phone] * Op Note - Alirio Esparza MD - 09/21/2016 12:53 PM EST 09/23/2016 Purnima Thacker 1955 [id number] Preoperative Diagnosis: Symptomatic aortic stenosis Postoperative Diagnosis: Symptomatic aortic stenosis Procedure: Aortic valve replacement: Bovine Pericardial 25 mm Surgeon: Alirio Esparza M.D. Justice Of The Peace: Philip BALL Anesthesia: General endotracheal anesthesia Drains: [...] applied. The patient was transported to the [facility] on levo. All counts were correct. * [...] Operative Note Patient Name: Purnima Thacker : [id number] MR#: [id number] Case Date: 09/21/2016 Surgeon: Surgeon(s) and Role: * Alirio Esparza MD - Primary * Nico Palacios PA - Physician Justice Of The Peace Preoperative diagnosis: Postoperative diagnosis: Procedure(s) (LRB): @REPLACE [...] 4:15 PM EDT Office Visit Dermatology at [place] [address] [facility] [place] [address] Marek Bonilla MD [address] [facility] [place] [address] 06/05/2024 11:30 AM EST [place] [address] Magdalena Peralta MD [facility] [place] [address] Scheduled Orders Name Type Priority Associated Diagnoses [...] IMPLANTABLE DEVICES SCAN 09/26/2016 12:00 AM EST EXECUTIVE LEGAL SECRETARY SCAN 09/26/2016 12:00 AM EST POTASSIUM Routine [...] Routine 09/22/2016 4:00 AM EST CARDIAC ENZYMES ([facility] Routine 09/22/2016 4:00 AM EST CREATININE Routine [...] SCAN EXT O RDR/RSLT * SCAN DOC: EXECUTIVE LEGAL SECRETARY (09/26/2016 12:00 AM EST) Anatomical Region Laterality Modality Other Narrative 09/26/2016 12:00 AM EST Ordered by an unspecified provider. Scanning Provider MEDIA MGR SCAN EXT O RDR/RSLT * Potassium (09/25/2016 4:32 AM EST) Potassium 4.4 3.5 - 5.0 mmol/L [facility] Comment: Please note: [...] MD CHEMISTRY ORDERABLE S Performing Organization Address City/State/[facility] Co de Phone Number [facility] [place] [address] * (ABNORMAL) Differential, Automated (09/24/2016 9:56 AM EST) Pathologist [facility] [place] Neutrophils % 76.8 % [facility] Neutr Abs (ANC) 7.79(H) 1.70 - 6.10 x10(3)/mc L [facility] Lymphocytes % 11.1 % [facility] Lymphocytes Abs 1.1 0.9 - 3.2 x10(3)/mc L [facility] Monocytes % 8.5 % [facility] Monocyte Abs 0.9 0.3 - 0.9 x10(3)/mc L [facility] Eosinophils % 0.5 % [facility] Eosinophils Abs 0.0 0.0 - 0.4 x10(3)/mc L [facility] Basophils % 0.2 % [facility] Basophils Abs 0.0 0.0 - 0.1 x10(3)/mc L [facility] Immature Gran % 2.90 % [facility] Comment: Immature granulocytes(IG's)percentage and absolute count will include metamyelocytes, myelocytes, and promyelocytes. Blood smears from CBCs yielding IG's will be scanned manually for concordance. If this scan disagrees with the automated IG or if promyelocytes are noted, a manual differential will be performed. Amanda Gran Abs 0.29(H) 0.00 - 0.04 x10(3)/ L [facility] Blood specimen (specimen) 09/24/2016 9:56 AM EST 09/24/2016 10:04 AM EST Narrative Resulting Agency Comment Spec In Lab Alirio Esparza MD HEMATOLOGY ORDERABL ES [facility] [place] [address] * (ABNORMAL) Hemogram (09/24/2016 9:56 AM EST) WBC 10.1(H) 4.0 - 9.5 x10(3)/[facility] RBC 2.87(L) 4.00 - 5.21 x10(6)/[facility] Hemoglobin 9.4(L) 11.7 - 15.5 gm/dL [facility] Hematocrit 28.3(L) 35.7 - 45.8 % [facility] MCV 98.6(H) 82.6 - 94.4 fL [facility] MCH 32.8(H) 27.1 - 32.0 pg [facility] MCHC 33.2 31.7 - 35.0 gm/dL [facility] Platelets 141(L) 145 - 357 x10(3)/[facility] RDWSD 45.0 37.0 - 46.0 [facility] RDWCV 12.6 11.5 - 14.1 % [facility] MPV 9.4 7.6 - 12.9 [facility] nRBC % Auto 1.1 % [facility] nRBC Abs Auto 0.110(H) 0.000 - 0.000 x10(3)/[facility] Blood specimen (specimen) 09/24/2016 9:56 AM EST 09/24/2016 10:04 AM EST Narrative Resulting Agency Comment Spec In Lab Alirio Esparza MD HEMATOLOGY ORDERABL ES [facility] [place] [address] * (ABNORMAL) Basic Metabolic Panel (non-fasting) (09/24/2016 9:56 AM EST) Glucose Lvl 111 65 - 199 mg/dL [facility] Comment:Diabetes: >=200 mg/d L plus symptoms BUN 23(H) 8 - 18 mg/dL [facility] Comment:result rechecked-ART Creatinine 0.89 0.70 - 1.20 mg/dL [facility] Comment: Please note that the pediatric reference intervals supplied above were not validated [place] [facility] Results from pediatric patients should be interpreted in conjunction to the patient's age, height and muscle mass. Sodium 138 135 - 145 mmol/L [facility] Potassium 4.2 3.5 - 5.0 mmol/L [facility] Comment: Please note: ??Patients with WBC >100,000 may have falsely elevated Potassium levels. ??For accurate Potassium quantification in these patients send serum separator tube (gold top) for subsequent determinations. ??Contact the Clinical Chemistry Laboratory if there are any questions. Chloride 98 98 - 107 mmol/L [facility] CO2 26 22 - 31 mmol/L [facility] Anion Gap 14 5 - 15 mmol/L [facility] Calcium 9.1 8.5 - 10.5 mg/dL [facility] Estimated GFR >60 >=60 [facility] Comment: This estimated GFR (eGFR) [...] the following links into your internet browser. [email or web address] Blood specimen (specimen) 09/24/2016 9:56 AM EST 09/24/2016 10:04 AM EST Narrative Resulting Agency Comment Spec In Lab Alirio Esparza MD CHEMISTRY ORDERABLE S [facility] [place] [id number] * XR Chest PA & Lateral (Generic) [...] Minimal retrocardiac atelectasis. No pneumothorax. Procedure Note Avis Mckinney MD - 09/24/2016 EXAMINATION: XR CHEST [...] EST) Potassium 4.5 3.5 - 5.0 mmol/L [facility] Comment: Please note: [...] MD CHEMISTRY ORDERABLE S Performing Organization Address City/[facility] Co de Phone Number [facility] [place] [address] * POCT Glucose (09/22/2016 8:17 AM EST) [facility] Signature POC Glucose 131 65 - 199 mg/dL [facility] Comment: Supplemental ranges: <140 mg/dL before meals <180 mg/dL all other times of the day Blood specimen (specimen) 09/22/2016 8:17 AM EST 09/22/2016 8:17 AM EST Alirio Esparza MD POINT OF CARE TEST ORDERABLES Performing Organization Address [facility] Co de Phone Number [facility] [place] [address] * POCT Glucose (09/22/2016 4:01 AM EST) [facility] Signature POC Glucose 135 65 - 199 mg/dL [facility] Comment: Supplemental ranges: <140 mg/dL before meals <180 mg/dL all other times of the day Blood specimen (specimen) 09/22/2016 4:01 AM EST 09/22/2016 4:01 AM EST Alirio Esparza MD POINT OF CARE TEST ORDERABLES Performing Organization Address City/[facility] Co de Phone Number [facility] [place] [address] * Scan, Peripheral Blood (09/22/2016 4:00 AM EST) Plat Estimate Normal [facility] RBC Morphology Abnormal [facility] Macrocytes 1-5 /HPF [facility] Giant Platelets Less than 1 /HPF [facility] Blood specimen (specimen) 09/22/2016 4:00 AM EST 09/22/2016 4:34 AM EST Narrative Resulting Agency Comment Spec In Lab Alirio Esparza MD HEMATOLOGY ORDERABL ES Performing Organization Address [facility] Co de Phone Number [facility] [place] [address] * Electrolytes panel (09/22/2016 4:00 AM EST) Pathologist [facility] [place] Sodium 145 135 - 145 mmol/L [facility] Potassium 4.4 3.5 - 5.0 mmol/L [facility] Comment: Please note: ??Patients with WBC >100,000 may have falsely elevated Potassium levels. ??For accurate Potassium quantification in these patients send serum separator tube (gold top) for subsequent determinations. ??Contact the Clinical Chemistry Laboratory if there are any questions. Chloride 107 98 - 107 mmol/L [facility] CO2 24 22 - 31 mmol/L [facility] Anion Gap 14 5 - 15 mmol/L [facility] Blood specimen (specimen) Venous Draw / Unknown 09/22/2016 4:00 AM EST 09/22/2016 4:34 AM EST Narrative Resulting Agency Comment Spec In Lab Alirio Esparza MD CHEMISTRY ORDERABLE S Performing Organization Address City/[facility]/ZIP Co de Phone Number [facility] [place] [address] * (ABNORMAL) Differential, Automated (09/22/2016 4:00 AM EST) Neutrophils % 70.9 % [facility] Neutr Abs (ANC) 5.33 1.70 - 6.10 x10(3)/mc L [facility] Lymphocytes % 9.1 % [facility] Lymphocytes Abs 0.7(L) 0.9 - 3.2 x10(3)/[facility] Monocytes % 18.0 % [facility] Monocyte Abs 1.4(H) 0.3 - 0.9 x10(3)/[facility] Eosinophils % 0.0 % [facility] Eosinophils Abs 0.0 0.0 - 0.4 x10(3)/[facility] Basophils % 0.1 % [facility] Basophils Abs 0.0 0.0 - 0.1 x10(3)/[facility] Immature Gran % 1.90 % [facility] Comment: Immature granulocytes(IG's)percentage and absolute count will include metamyelocytes, myelocytes, and promyelocytes. Blood smears from CBCs yielding IG's will be scanned manually for concordance. If this scan disagrees with the automated IG or if promyelocytes are noted, a manual differential will be performed. Amanda Gran Abs 0.14(H) 0.00 - 0.04 x10(3)/[facility] Blood specimen (specimen) 09/22/2016 4:00 AM EST 09/22/2016 4:34 AM EST Narrative Resulting Agency Comment Spec In Lab Alirio Esparza MD HEMATOLOGY ORDERABL ES [facility] [place] [address] * (ABNORMAL) Hemogram (09/22/2016 4:00 AM EST) WBC 7.5 4.0 - 9.5 x10(3)/[facility] RBC 2.93(L) 4.00 - 5.21 x10(6)/[facility] Hemoglobin 9.2(L) 11.7 - 15.5 gm/dL [facility] Hematocrit 28.0(L) 35.7 - 45.8 % [facility] MCV 95.6(H) 82.6 - 94.4 fL [facility] MCH 31.4 27.1 - 32.0 pg [facility] MCHC 32.9 31.7 - 35.0 gm/dL [facility] Platelets 161 145 - 357 x10(3)/[facility] RDWSD 44.0 37.0 - 46.0 fL [facility] RDWCV 12.6 11.5 - 14.1 % [facility] MPV 9.3 7.6 - 12.9 fL [facility] nRBC % Auto 0.3 % [facility] nRBC Abs Auto 0.020(H) 0.000 - 0.000 x10(3)/[facility] Blood specimen (specimen) 09/22/2016 4:00 AM EST 09/22/2016 4:34 AM EST Narrative Resulting Agency Comment Spec In Lab Alirio Esparza MD HEMATOLOGY ORDERABL ES [facility] [place] [address] * (ABNORMAL) Cardiac Enzymes (09/22/2016 4:00 AM EST) Troponin-T 0.13(H) <=0.03 ng/mL [facility] Comment: 0.03 ng/mL: Represents the 99th percentile upper reference limit for normals. >0.03 ng/mL: Elevated cardiac troponin T level indicative of myocardial damage. Diagnosis of acute, evolving or recent [place] requires a typical rise and gradual fall [...] consensus document of the Joint Society of Cardiology/[place] [employer] Committee for the redefinition of myocardial infarction. ??Journal of the [place] College [employer] 2000; 36: 959-969] CK, Total 338(H) 0 - 160 unit/L [facility] Blood specimen (specimen) 09/22/2016 4:00 AM EST 09/22/2016 4:34 AM EST Narrative Resulting Agency Comment Spec In Lab Alirio Esparza MD CHEMISTRY ORDERABLE S Performing Organization Address [facility] Co de Phone Number [facility] [place] [address] * (ABNORMAL) Glucose, fasting (09/22/2016 4:00 AM EST) Glucose Fasting 137(H) 65 - 99 mg/dL [facility] Comment: ?Fasting* Glucose Interpretive Criteria Normal [...] of Diabetes Mellitus, Position Statement from the [place] [employer]. ??Diabetes Care, Volume 33, Supplement 1, Aug 2009 Blood specimen (specimen) 09/22/2016 4:00 AM EST 09/22/2016 4:34 AM EST Narrative Resulting Agency Comment Spec In Lab Alirio Esparza MD CHEMISTRY ORDERABLE S Performing Organization Address [facility] Co de Phone Number [facility] [place] [address] * (ABNORMAL) Creatinine (09/22/2016 4:00 AM EST) Creatinine 0.69(L) 0.70 - 1.20 mg/dL [facility] Comment: Please note that the pediatric reference intervals supplied above were not validated [place] [facility] Results from pediatric patients should be interpreted in conjunction to the patient's age, height and muscle mass. Estimated GFR >60 >=60 [facility] Comment: This estimated GFR (eGFR) [...] the following links into your internet browser. [email or web address] Blood specimen (specimen) 09/22/2016 4:00 AM EST 09/22/2016 4:34 AM EST Narrative Resulting Agency Comment Spec In Lab Alirio Esparza MD CHEMISTRY ORDERABLE S Performing Organization Address [facility] Co de Phone Number [facility] [place] [address] * BUN (09/22/2016 4:00 AM EST) BUN 10 8 - 18 mg/dL [facility] Blood specimen (specimen) 09/22/2016 4:00 AM EST 09/22/2016 4:34 AM EST Narrative Resulting Agency Comment Spec In Lab Alirio Esparza MD CHEMISTRY ORDERABLE S Performing Organization Address [facility] Co de Phone Number [facility] [place] [address] * POCT Glucose (09/21/2016 9:59 PM EST) POC Glucose 146 65 - 199 mg/dL [facility] Comment: Supplemental ranges: <140 mg/dL before meals <180 mg/dL all other times of the day Blood specimen (specimen) 09/21/2016 9:59 PM EST 09/21/2016 9:59 PM EST Alirio Esparza MD POINT OF CARE TEST ORDERABLES Performing Organization Address [facility] Co de Phone Number [facility] [place] [address] * POCT Glucose (09/21/2016 7:26 PM EST) POC Glucose 152 65 - 199 mg/dL [facility] Comment: Supplemental ranges: <140 mg/dL before meals <180 mg/dL all other times of the day Blood specimen (specimen) 09/21/2016 7:26 PM EST 09/21/2016 7:26 PM EST Alirio Esparza MD POINT OF CARE TEST ORDERABLES Performing Organization Address [facility] Co de Phone Number [facility] [place] [address] * POCT Glucose (09/21/2016 6:00 PM EST) POC Glucose 146 65 - 199 mg/dL [facility] Comment: Supplemental ranges: <140 mg/dL before meals <180 mg/dL all other times of the day Blood specimen (specimen) 09/21/2016 6:00 PM EST 09/21/2016 6:00 PM EST Alirio Esparza MD POINT OF CARE TEST ORDERABLES Performing Organization Address [facility] Co de Phone Number [facility] [place] [address] * (ABNORMAL) BLOOD GAS 2 ARTERIAL (09/21/2016 4:42 PM EST) pH Art 7.35(L) 7.35 - 7.45 [facility] pCO2 Art 48(H) 35 - 45 mmHg [facility] pO2 Art 108(H) 85 - 104 mmHg [facility] HCO3 Art 26.0 20.0 - 26.0 mmol/L [facility] BE Art 0.5 -3.0 - 3.0 mmol/L [facility] Hgb Blood Gas 10.4(L) 11.7 - 15.5 gm/dL [facility] O2HB Art 96.2 94.0 - 97.0 % [facility] COHB Art 0.0 % [facility] Comment: Nonsmokers: 0.5-1.5% COHB Smokers: Variable, but usually less than 10% Toxic: 20-30% COHB Lethal: Greater than 60% COHB METHB Art 0.7 <=1.5 % [facility] Na Whole Blood 139 135 - 145 mmol/L [facility] K Whole Blood 4.2 3.5 - 5.0 mmol/L [facility] Comment: Please note: Patients with WBC >100,000 may have falsely elevated Potassium levels. Contact the Clinical Chemistry Laboratory if there are any questions. ICa Whole Blood 1.13(L) 1.15 - 1.33 mmol/L [facility] Comment: Note: ??Total bilirubin higher than 20 mg/dL may lead to falsely low ionized calcium. CL Whole Blood 106 98 - 107 mmol/L [facility] Gluc Whole Bld 147 65 - 199 mg/dL [facility] Comment:Diabetes: >=200 mg/d L plus symptoms. Lactate WB 1.2 0.5 - 2.2 mmol/L [facility] FIO2 Art 40 % [facility] PF Ratio Art 270 [facility] Blood specimen (specimen) 09/21/2016 4:42 PM EST 09/21/2016 4:42 PM EST Alirio Esparza MD CHEMISTRY ORDERABLE S [facility] [place] [address] * POCT Glucose (09/21/2016 4:07 PM EST) POC Glucose 150 65 - 199 mg/dL [facility] Comment: Supplemental ranges: <140 mg/dL before meals <180 mg/dL all other times of the day Blood specimen (specimen) 09/21/2016 4:07 PM EST 09/21/2016 4:07 PM EST Alirio Esparza MD POINT OF CARE TEST ORDERABLES Performing Organization Address [facility] Co de Phone Number [facility] [place] [address] * (ABNORMAL) Hemoglobin (09/21/2016 4:05 PM EST) Hemoglobin 9.9(L) 11.7 - 15.5 gm/dL [facility] Blood specimen (specimen) 09/21/2016 4:05 PM EST 09/21/2016 4:20 PM EST Narrative Resulting Agency Comment Spec In Lab Alirio Esparza MD HEMATOLOGY ORDERABL ES Performing Organization Address [facility] Co de Phone Number [facility] [place] [address] * Potassium (09/21/2016 4:05 PM EST) [facility] Potassium 4.6 3.5 - 5.0 mmol/L [facility] Comment: Please note: [...] MD CHEMISTRY ORDERABLE S Performing Organization Address [facility] Co de Phone Number [facility] [place] [address] * POCT Glucose (09/21/2016 2:52 PM EST) POC Glucose 117 65 - 199 mg/dL [facility] Comment: Supplemental ranges: <140 mg/dL before meals <180 mg/dL all other times of the day Blood specimen (specimen) 09/21/2016 2:52 PM EST 09/21/2016 2:52 PM EST Alirio Esparza MD POINT OF CARE TEST ORDERABLES Performing Organization Address [facility] Co de Phone Number [facility] [place] [address] * POCT Glucose (09/21/2016 1:51 PM EST) POC Glucose 108 65 - 199 mg/dL [facility] Comment: Supplemental ranges: <140 mg/dL before meals <180 mg/dL all other times of the day Blood specimen (specimen) 09/21/2016 1:51 PM EST 09/21/2016 1:51 PM EST Alirio Esparza MD POINT OF CARE TEST ORDERABLES Performing Organization Address [facility] Co de Phone Number [facility] [place] [address] * POCT Glucose (09/21/2016 12:54 PM EST) POC Glucose 128 65 - 199 mg/dL [facility] Comment: Supplemental ranges: <140 mg/dL before meals <180 mg/dL all other times of the day Blood specimen (specimen) 09/21/2016 12:54 PM EST 09/21/2016 12:54 PM EST Alirio Esparza MD POINT OF CARE TEST ORDERABLES Performing Organization Address [facility] Co de Phone Number [facility] [place] [address] * EKG 12 Lead (09/21/2016 12:26 PM EST) Ventricular rate 87 BPM MUSE SYSTEM Atrial Rate 87 BPM MUSE SYSTEM P-R Interval 256 ms MUSE SYSTEM QRS Duration 90 ms MUSE SYSTEM Q-T Interval 406 ms MUSE SYSTEM QTC Calculated (Bezet) 488 ms MUSE SYSTEM Calculated P [place] 24 degrees MUSE SYSTEM Calculated R [place] 21 degrees MUSE SYSTEM Calculated T [place] -5 degrees MUSE SYSTEM INTERPRETATION Sinus rhythm with 1st degree A-V block Nonspecific T wave abnormality Prolonged QT Abnormal ECG When compared with ECG of 19-MAY-2016 11:43, DC interval has increased T wave inversion now evident in inferior and midanterior leads Confirmed by MD FRANKLYN, EDWARD ([id number]) on 09/21/2016 1:40:59 PM MUSE SYSTEM 09/21/2016 12:2 6 PM EST 09/21/2016 1:40 PM EST Alirio Esparza MD ECG ORDERABLES MUSE SYSTEM * XR Chest PA or [...] course of the esophagus and below the [id number]. There is a right IJ PA catheter [...] the course of theesophagus and below the [id number]. There is a right IJ PA catheter [...] EST) pH Art 7.41 7.35 - 7.45 [facility] pCO2 Art 42 35 - 45 mmHg [facility] pO2 Art 356(H) 85 - 104 mmHg [facility] HCO3 Art 26.2(H) 20.0 - 26.0 mmol/L [facility] BE Art 1.6 -3.0 - 3.0 mmol/L [facility] Hgb Blood Gas 10.7(L) 11.7 - 15.5 gm/dL [facility] O2HB Art 98.1(H) 94.0 - 97.0 % [facility] COHB Art 0.3 % [facility] Comment: Nonsmokers: 0.5-1.5% COHB Smokers: Variable, but usually less than 10% Toxic: 20-30% COHB Lethal: Greater than 60% COHB METHB Art 0.8 <=1.5 % [facility] Na Whole Blood 140 135 - 145 mmol/L [facility] K Whole Blood 3.8 3.5 - 5.0 mmol/L [facility] Comment: Please note: Patients with WBC >100,000 may have falsely elevated Potassium levels. Contact the Clinical Chemistry Laboratory if there are any questions. ICa Whole Blood 1.15(L) 1.15 - 1.33 mmol/L [facility] Comment: Note: ??Total bilirubin higher than 20 mg/dL may lead to falsely low ionized calcium. CL Whole Blood 106 98 - 107 mmol/L [facility] Gluc Whole Bld 135 65 - 199 mg/dL [facility] Comment:Diabetes: >=200 mg/d L plus symptoms. Lactate WB 2.2 0.5 - 2.2 mmol/L [facility] FIO2 Art 100 % [facility] PF Ratio Art 356 [facility] Blood specimen (specimen) 09/21/2016 12:20 PM EST 09/21/2016 12:20 PM EST Alirio Esparza MD CHEMISTRY ORDERABLE S [facility] [place] [address] * (ABNORMAL) BLOOD GAS 2 ARTERIAL (09/21/2016 10:54 AM EST) pH Art 7.43 7.35 - 7.45 [facility] pCO2 Art 40 35 - 45 mmHg [facility] pO2 Art 297(H) 85 - 104 mmHg [facility] HCO3 Art 26.0 20.0 - 26.0 mmol/L [facility] BE Art 1.6 -3.0 - 3.0 mmol/L [facility] Hgb Blood Gas 8.6(L) 11.7 - 15.5 gm/dL [facility] O2HB Art 98.6(H) 94.0 - 97.0 % [facility] COHB Art 0.5 % [facility] Comment: Nonsmokers: 0.5-1.5% COHB Smokers: Variable, but usually less than 10% Toxic: 20-30% COHB Lethal: Greater than 60% COHB METHB Art 0.3 <=1.5 % [facility] Na Whole Blood 134(L) 135 - 145 mmol/L [facility] K Whole Blood 4.5 3.5 - 5.0 mmol/L [facility] Comment: Please note: Patients with WBC >100,000 may have falsely elevated Potassium levels. Contact the Clinical Chemistry Laboratory if there are any questions. ICa Whole Blood 1.16 1.15 - 1.33 mmol/L [facility] Comment: Note: ??Total bilirubin higher than 20 mg/dL may lead to falsely low ionized calcium. CL Whole Blood 104 98 - 107 mmol/L [facility] Gluc Whole Bld 240(H) 65 - 199 mg/dL [facility] Comment:Diabetes: >=200 mg/d L plus symptoms. Lactate WB 2.4(H) 0.5 - 2.2 mmol/L [facility] FIO2 Art 95 % [facility] Flow Art 0.7 LPM [facility] PF Ratio Art 313 [facility] Temp Art 36.7 Celsius [facility] Blood specimen (specimen) 09/21/2016 10:54 AM EST 09/21/2016 10:54 AM EST Alirio Esparza MD CHEMISTRY ORDERABLE S Performing Organization Address [facility] Co de Phone Number [facility] [place] [address] * Thrombin time (09/21/2016 10:50 AM EST) Thrombin Time 19 15 - 20 sec [facility] Comment: A prolongation in the thrombin [...] MD HEMATOLOGY ORDERABLE S Performing Organization Address [facility] Co de Phone Number [facility] [place] [address] * Fibrinogen (09/21/2016 10:50 AM EST) Fibrinogen 228 180 - 510 mg/dL [facility] Comment: Called by: JONNATHAN, Read back by: MICHELLE ALEJANDRE_, Date/Time:09/21/16 11:11. A fibrinogen level >100 mg/dL is adequate for hemostasis in most patients without underlying bleeding disorders. Blood specimen (specimen) 09/21/2016 10:50 AM EST 09/21/2016 10:56 AM EST Narrative Resulting Agency Comment Spec In Lab Luis Enrique Quarles MD HEMATOLOGY ORDERABLE S Performing Organization Address [facility] Co de Phone Number [facility] [place] [address] * APTT (09/21/2016 10:50 AM EST) PTT 32 25 - 35 sec [facility] Comment: The recommended therapeutic range for full dose, unfractionated heparin at [facility] is 80 ? 114 seconds. The use of the anti-Xa (heparin) level rather than the PTT is recommended for monitoring anticoagulation intensity in critically ill patients receiving unfractionated heparin by continuous IV infusion. Blood specimen (specimen) 09/21/2016 10:50 AM EST 09/21/2016 10:56 AM EST Narrative Resulting Agency Comment Spec In Lab Luis Enrique Quarles MD HEMATOLOGY ORDERABLE S Performing Organization Address [facility] de Phone Number [facility] [place] [address] * (ABNORMAL) Prothrombin Time (09/21/2016 10:50 AM EST) PT 18.7(H) 12.0 - 15.0 sec [facility] Comment: An [...] clinical circumstances. INR 1.5(H) 0.9 - 1.1 [facility] Blood specimen (specimen) 09/21/2016 10:50 AM EST 09/21/2016 10:56 AM EST Narrative Resulting Agency Comment Spec In Lab Luis Enrique Quarles MD HEMATOLOGY ORDERABLE S [facility] [place] [address] * (ABNORMAL) Hemogram (09/21/2016 10:50 AM EST) WBC 14.7(H) 4.0 - 9.5 x10(3)/[facility] LABORATORY RBC 2.40(L) 4.00 - 5.21 x10(6)/[facility] Hemoglobin 7.9(L) 11.7 - 15.5 gm/dL [facility] Hematocrit 23.2(L) 35.7 - 45.8 % [facility] Comment: This result has been called to MICHELLE GRIGSBY by ASHU MORENO on 09 21 2016 at 1102, and has been read back. MCV 96.7(H) 82.6 - 94.4 fL [facility] MCH 32.9(H) 27.1 - 32.0 pg [facility] MCHC 34.1 31.7 - 35.0 gm/dL [facility] Platelets 117(L) 145 - 357 x10(3)/[facility]ORY RDWSD 42.6 37.0 - 46.0 [facility]ORY RDWCV 12.1 11.5 - 14.1 % [facility] MPV 9.2 7.6 - 12.9 [facility] nRBC % Auto 0.1 % [facility] nRBC Abs Auto 0.020(H) 0.000 - 0.000 x10(3)/[facility] Blood specimen (specimen) 09/21/2016 10:50 AM EST 09/21/2016 10:56 AM EST Narrative Resulting Agency Comment Spec In Lab Luis Enrique Quarles MD [place] [address] * Prepare Platelets, Apheresis (09/21/2016 10:30 AM EST) Dispensed? Yes [facility] Blood specimen (specimen) 09/21/2016 10:30 AM EST 09/21/2016 10:28 AM EST Alirio Esparza MD BLOOD BANK PRODUCT ORDERABLES Performing Organization Address [facility] [place] [address] * (ABNORMAL) BLOOD GAS 2 ARTERIAL (09/21/2016 10:05 AM EST) pH Art 7.33(L) 7.35 - 7.45 [facility] pCO2 Art 54(Critic al) 35 - 45 mmHg [facility] Comment:Noted by optical instrument repairer. pO2 Art 218(H) 85 - 104 mmHg [facility] HCO3 Art 27.9(H) 20.0 - 26.0 mmol/L [facility] BE Art 2.0 -3.0 - 3.0 mmol/L [facility] Hgb Blood Gas 8.6(L) 11.7 - 15.5 gm/dL [facility] O2HB Art 98.4(H) 94.0 - 97.0 % [facility] COHB Art 0.5 % [facility] Comment: Nonsmokers: 0.5-1.5% COHB Smokers: Variable, but usually less than 10% Toxic: 20-30% COHB Lethal: Greater than 60% COHB METHB Art 0.3 <=1.5 % [facility] Na Whole Blood 129(L) 135 - 145 mmol/L [facility] K Whole Blood 6.2(Criti gabrielle) 3.5 - 5.0 mmol/L [facility] Comment: Noted by optical instrument repairer. Please note: Patients with WBC >100,000 may have falsely elevated Potassium levels. Contact the Clinical Chemistry Laboratory if there are any questions. ICa Whole Blood 0.95(L) 1.15 - 1.33 mmol/L [facility] Comment: Note: ??Total bilirubin higher than 20 mg/dL may lead to falsely low ionized calcium. CL Whole Blood 100 98 - 107 mmol/L [facility] Gluc Whole Bld 289(H) 65 - 199 mg/dL [facility] Comment:Diabetes: >=200 mg/d L plus symptoms. Lactate WB 2.2 0.5 - 2.2 mmol/L [facility] Temp Art 37.0 Celsius [facility] Blood specimen (specimen) 09/21/2016 10:05 AM EST 09/21/2016 10:05 AM EST Alirio Esparza MD CHEMISTRY ORDERABLE S [facility] [place] [address] * (ABNORMAL) BLOOD GAS 2 ARTERIAL (09/21/2016 9:44 AM EST) pH Art 7.22(Criti gabrielle) 7.35 - 7.45 [facility] Comment:Noted by optical instrument repairer. pCO2 Art 70(Critica l) 35 - 45 mmHg [facility] Comment:Noted by optical instrument repairer. pO2 Art 224(H) 85 - 104 mmHg [facility] HCO3 Art 27.8(H) 20.0 - 26.0 mmol/L [facility] BE Art 0.0 -3.0 - 3.0 mmol/L [facility] Hgb Blood Gas 8.7(L) 11.7 - 15.5 gm/dL [facility] O2HB Art 98.5(H) 94.0 - 97.0 % [facility] COHB Art 0.6 % [facility] Comment: Nonsmokers: 0.5-1.5% COHB Smokers: Variable, but usually less than 10% Toxic: 20-30% COHB Lethal: Greater than 60% COHB METHB Art 0.3 <=1.5 % [facility] Na Whole Blood 131(L) 135 - 145 mmol/L [facility] K Whole Blood 5.9(H) 3.5 - 5.0 mmol/L [facility] Comment: Please note: Patients with WBC >100,000 may have falsely elevated Potassium levels. Contact the Clinical Chemistry Laboratory if there are any questions. ICa Whole Blood 1.00(L) 1.15 - 1.33 mmol/L [facility] Comment: Note: ??Total bilirubin higher than 20 mg/dL may lead to falsely low ionized calcium. CL Whole Blood 101 98 - 107 mmol/L [facility] Gluc Whole Bld 227(H) 65 - 199 mg/dL [facility] Comment:Diabetes: >=200 mg/d L plus symptoms. Lactate WB 2.1 0.5 - 2.2 mmol/L [facility] Blood specimen (specimen) 09/21/2016 9:44 AM EST 09/21/2016 9:44 AM EST Alirio Esparza MD CHEMISTRY ORDERABLE S Performing Organization Address City/[facility] Co de Phone Number [facility] [place] [address] * (ABNORMAL) Hemoglobin (09/21/2016 9:42 AM EST) Hemoglobin 7.2(L) 11.7 - 15.5 gm/dL [facility] Blood specimen (specimen) 09/21/2016 9:42 AM EST 09/21/2016 9:51 AM EST Narrative Resulting Agency Comment Spec In Lab Alirio Esparza MD HEMATOLOGY ORDERABL ES Performing Organization Address City/[facility]/ZIP Co de Phone Number [facility] [place] [address] * Platelet count (09/21/2016 9:42 AM EST) Platelets 159 145 - 357 x10(3)/mc L [facility] Plat Immature % 1.6 0.0 - 7.4 % [facility] Comment: Limitation of the Immature Platelet Fraction (IPF)-May be less reliable when the platelet count is less than 50x291/uL due to statistical imprecision. The IPF value [...] in a decreased state of production. References: [employer] The Clinical Value of the Immature Platelet Fraction (IPF) in Cell Recovery Document Number 10-1143 12/2010 [employer] The Role of the Immature Platelet Fraction (IPF) in the Differential Diagnosis of Thrombocytopenia, Document MKT-10-1209 V05 P05 Blood specimen (specimen) 09/21/2016 9:42 AM EST 09/21/2016 9:51 AM EST Narrative Resulting Agency Comment Spec In Lab Alirio Esparza MD HEMATOLOGY ORDERABL ES [facility] [place] [address] * (ABNORMAL) Hematocrit (09/21/2016 9:42 AM EST) Hematocrit 21.6(L) 35.7 - 45.8 % [facility] Comment: This result has been called to MICHELLE ALEJANDRE by Serjio Frazier on 09 21 2016 at 0957, and has been read back. Blood specimen (specimen) 09/21/2016 9:42 AM EST 09/21/2016 9:51 AM EST Narrative Resulting Agency Comment Spec In Lab Alirio Esparza MD HEMATOLOGY ORDERABL ES Performing Organization Address [facility] Co de Phone Number [facility] [place] [address] * Fibrinogen (09/21/2016 9:42 AM EST) Fibrinogen 219 180 - 510 mg/dL [facility] Comment: Called by: JONNATHAN, Read back by: MICHELLE ALEJANDRE_, Date/Time:09/21/16 10:03_. A fibrinogen level >100 mg/dL is adequate for hemostasis in most patients without underlying bleeding disorders. Blood specimen (specimen) 09/21/2016 9:42 AM EST 09/21/2016 9:51 AM EST Narrative Resulting Agency Comment Spec In Lab Alirio Esparza MD HEMATOLOGY ORDERABL ES Performing Organization Address [facility] Co de Phone Number [facility] [place] [address] * (ABNORMAL) BLOOD GAS 2 ARTERIAL (09/21/2016 9:10 AM EST) pH Art 7.36 7.35 - 7.45 [facility] pCO2 Art 48(H) 35 - 45 mmHg [facility] pO2 Art 295(H) 85 - 104 mmHg [facility] HCO3 Art 26.0 20.0 - 26.0 mmol/L [facility] BE Art 0.5 -3.0 - 3.0 mmol/L [facility] Hgb Blood Gas 8.0(L) 11.7 - 15.5 gm/dL [facility] O2HB Art 98.3(H) 94.0 - 97.0 % [facility] COHB Art 1.0 % [facility] Comment: Nonsmokers: 0.5-1.5% COHB Smokers: Variable, but usually less than 10% Toxic: 20-30% COHB Lethal: Greater than 60% COHB METHB Art 0.3 <=1.5 % [facility] Na Whole Blood 135 135 - 145 mmol/L [facility] K Whole Blood 5.4(H) 3.5 - 5.0 mmol/L [facility] Comment: Please note: Patients with WBC >100,000 may have falsely elevated Potassium levels. Contact the Clinical Chemistry Laboratory if there are any questions. ICa Whole Blood 0.93(L) 1.15 - 1.33 mmol/L [facility] Comment: Note: ??Total bilirubin higher than 20 mg/dL may lead to falsely low ionized calcium. CL Whole Blood 102 98 - 107 mmol/L [facility] Gluc Whole Bld 195 65 - 199 mg/dL [facility] Comment:Diabetes: >=200 mg/d L plus symptoms. Lactate WB 1.8 0.5 - 2.2 mmol/L [facility] Temp Art 37.0 Celsius [facility] Blood specimen (specimen) 09/21/2016 9:10 AM EST 09/21/2016 9:10 AM EST Alirio Esparza MD CHEMISTRY ORDERABLE S [facility] [place] [address] * Surgical Pathology Report (09/21/2016 9:09 AM EST) Surgical Pathology Report [id number] ?Location: 3T The signing pathologist has (i) examined the relevant preparation(s) for the specimen(s) and (ii) rendered or confirmed the diagnosis(es). . 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 Electronically signed by: ??Memoli MD, Vincent A Verified: ??09/24/2016 ?Pathologist CLINICAL INFORMATION Specimen Submitted: [...] submitted for decalcification: ??(1) ?. (R1) ??ADELITA [facility] 09/21/2016 9:09 AM EST Alirio Esparza MD PATHOLOGY/CYTOLOGY ORDERABLES Performing Organization Address [facility] [place] [address] * Specimen to Pathology (surgical or derm) (09/21/2016 9:09 AM EST) AP Specimen 09/21/2016 9:09 AM EST 09/21/2016 9:09 AM EST Narrative [facility] - 09/21/2016 9:09 AM EST Specimen requisition ordered. ??Separate Pathology report to follow Alirio Esparza MD PATHOLOGY/CYTOLOGY ORDERABLES Performing Organization Address [facility] Co de Phone Number [facility] [place] [address] * (ABNORMAL) BLOOD GAS 2 ARTERIAL (09/21/2016 8:50 AM EST) pH Art 7.41 7.35 - 7.45 [facility] pCO2 Art 33(L) 35 - 45 mmHg [facility] pO2 Art 348(H) 85 - 104 mmHg [facility] HCO3 Art 20.6 20.0 - 26.0 mmol/L [facility] BE Art -4.1(L) -3.0 - 3.0 mmol/L [facility] Hgb Blood Gas 9.5(L) 11.7 - 15.5 gm/dL [facility] O2HB Art 98.8(H) 94.0 - 97.0 % [facility] COHB Art 0.3 % [facility] Comment: Nonsmokers: 0.5-1.5% COHB Smokers: Variable, but usually less than 10% Toxic: 20-30% COHB Lethal: Greater than 60% COHB METHB Art 0.3 <=1.5 % [facility] Na Whole Blood 137 135 - 145 mmol/L [facility] K Whole Blood 4.0 3.5 - 5.0 mmol/L [facility] Comment: Please note: Patients with WBC >100,000 may have falsely elevated Potassium levels. Contact the Clinical Chemistry Laboratory if there are any questions. ICa Whole Blood 1.04(L) 1.15 - 1.33 mmol/L [facility] Comment: Note: ??Total bilirubin higher than 20 mg/dL may lead to falsely low ionized calcium. CL Whole Blood 105 98 - 107 mmol/L [facility] Gluc Whole Bld 93 65 - 199 mg/dL [facility] Comment:Diabetes: >=200 mg/d L plus symptoms. Lactate WB 1.0 0.5 - 2.2 mmol/L [facility] Blood specimen (specimen) 09/21/2016 8:50 AM EST 09/21/2016 8:50 AM EST Alirio Esparza MD CHEMISTRY ORDERABLE S [facility] [place] [address] * (ABNORMAL) BLOOD GAS 2 ARTERIAL (09/21/2016 8:18 AM EST) pH Art 7.42 7.35 - 7.45 [facility] pCO2 Art 36 35 - 45 mmHg [facility] pO2 Art 283(H) 85 - 104 mmHg [facility] HCO3 Art 22.8 20.0 - 26.0 mmol/L [facility] BE Art -2.0 -3.0 - 3.0 mmol/L [facility] Hgb Blood Gas 12.6 11.7 - 15.5 gm/dL [facility] O2HB Art 99.0(H) 94.0 - 97.0 % [facility] COHB Art 0.6 % [facility] Comment: Nonsmokers: 0.5-1.5% COHB Smokers: Variable, but usually less than 10% Toxic: 20-30% COHB Lethal: Greater than 60% COHB METHB Art 0.0 <=1.5 % [facility] Na Whole Blood 144 135 - 145 mmol/L [facility] K Whole Blood 4.0 3.5 - 5.0 mmol/L [facility] Comment: Please note: Patients with WBC >100,000 may have falsely elevated Potassium levels. Contact the Clinical Chemistry Laboratory if there are any questions. ICa Whole Blood 1.22 1.15 - 1.33 mmol/L [facility] Comment: Note: ??Total bilirubin higher than 20 mg/dL may lead to falsely low ionized calcium. CL Whole Blood 106 98 - 107 mmol/L [facility] Gluc Whole Bld 102 65 - 199 mg/dL [facility] Comment:Diabetes: >=200 mg/d L plus symptoms. Lactate WB 1.2 0.5 - 2.2 mmol/L [facility] FIO2 Art 95 % [facility] Flow Art 1.1 LPM [facility] PF Ratio Art 298 [facility] Temp Art 35.6 Celsius [facility] Blood specimen (specimen) 09/21/2016 8:18 AM EST 09/21/2016 8:18 AM EST Alirio Esparza MD CHEMISTRY ORDERABLE S [facility] [place] [address] * Prepare RBC (09/21/2016 7:05 AM EST) Dispensed? Yes [facility] Blood specimen (specimen) 09/21/2016 7:05 AM EST 09/21/2016 7:02 AM EST Alirio Esparza MD BLOOD BANK PRODUCT ORDERABLES Performing Organization Address City/[facility] Co de Phone Number [facility] [place] [address] * POCT Glucose (09/21/2016 6:42 AM EST) POC Glucose 104 65 - 199 mg/dL [facility] Comment: Supplemental ranges: <140 mg/dL before meals <180 mg/dL all other times of the day Blood specimen (specimen) 09/21/2016 6:42 AM EST 09/21/2016 6:42 AM EST Alirio Esparza MD POINT OF CARE TEST ORDERABLES Performing Organization Address [facility] Co de Phone Number [facility] [place] [address] documented in this encounter Visit Diagnoses Not on filedocumented in this encounter Admitting Diagnoses Diagnosis Aortic stenosis Aortic valve disorders documented in this encounter Administered Medications Inactive Administered Medications - up to 3 most recent administrations Medication Order MAR Action Action Date Dose Rate Site acetaminophen (TYLENOL) tablet 1,000 mg 1,000 mg, Oral, EVERY 6 HOURS SCHEDULED, First dose on Wed09/21/16 at 1800, Until Discontinued, For pain when taking by mouth , Routine Given 09/25/2016 9:42 AM EST 1,000 mg Given 09/24/2016 6:52 PM EST 1,000 mg Given 09/24/2016 11:50 AM EST 1,000 mg aspirin chewable tablet 81 mg 81 [...] Given 09/22/2016 9:33 PM EST 100 mg calcium chloride 100 mg/mL (10 %) injection ONCE PRN, Starting on Wed09/21/16 at 1012, Until Wed09/22/16 at 1626, Intra-Operative (Intra-Procedure), Routine Given 09/21/2016 10:12 AM EST 1 g cardioplegic solution (PLEGISOL) induction solution ONCE PRN, Starting on Wed09/21/16 at 0852, Until Wed09/22/16 at 1626, Intra-Operative (Intra-Procedure) Given 09/21/2016 8:52 AM EST 301.4 mLs cardioplegic solution (PLEGISOL) maintenance solution ONCE PRN, Starting on Wed09/21/16 at 0957, Until Wed09/22/16 at 1626, Intra-Operative (Intra-Procedure) Given 09/21/2016 9:57 AM EST 491.2 mLs cardioplegic solution (PLEGISOL) reperfusion solution ONCE PRN, Starting on Wed09/21/16 at 1012, Until Wed09/22/16 at 1626, Intra-Operative (Intra-Procedure) Given 09/21/2016 10:12 AM EST 120 mLs cefUROXime (ZINACEF) injection 1.5 g Administer over 60 Minutes, ONCE PRN, Starting on Wed09/21/16 at 0757, Until Wed09/25/16 at 1834, Intra-Operative (Intra-Procedure), Routine Given 09/21/2016 10:33 AM EST 1.5 g Given 09/21/2016 8:00 AM EST 1.5 g Given 09/21/2016 7:57 AM EST 1 g chlorhexidine (PERIDEX) 0.12 % oral solution 15 mL 15 mL, Oral, EVERY 12 HOURS SCHEDULED (2 times per day), First dose on Wed09/21/16 at 1230, Until Discontinued, [place] teeth, Routine Given 09/25/2016 9:40 AM EST 15 mLs Given 09/23/2016 8:19 PM EST 15 mLs Given 09/22/2016 9:34 PM EST 15 mLs electrolyte (pH 7.4) (NORMOSOL-R; PLASMALYTE-A) injection CONTINUOUS PRN, Starting on Wed09/21/16 at 1026, Until Wed09/21/16 at 1206, Intra-Operative (Intra-Procedure) New Bag 09/21/2016 10:26 AM EST 600 mLs fluconazole (DIFLUCAN) tablet 200 mg 200 mg, Oral, DAILY, 9 doses, First dose (after last modification) on Wed09/23/16 at 0900, Last dose on Wed10/01/16 at 0900, Routine, Indication for (Active or Suspected): Skin/Skin Structure Given 09/25/2016 9:41 AM EST 200 mg Given 09/24/2016 8:28 AM EST 200 mg Given 09/23/2016 8:17 AM EST 200 mg furosemide (LASIX) tablet 20 mg 20 mg, Oral, DAILY, 7 doses, First dose on Wed09/26/16 at 0900, Last dose on Wed10/02/16 at 0900, Routine gelatin adsorbable 100 (GELFOAM) sponge ONCE PRN, Starting on Wed09/21/16 at 0945, Until Wed09/22/16 at 1626, Intra-Operative (Intra-Procedure), Routine Given 09/21/2016 9:45 AM EST 1 each 19- Surgical Site gentamicin (GARAMYCIN) injection ONCE PRN, Starting on Wed09/21/16 at 0944, Until Wed09/21/16 at 1342, Intra-Operative (Intra-Procedure), Routine Given 09/21/2016 9:44 AM EST 160 mg 19- Surgical Site heparin (porcine) injection ONCE PRN, Starting on Wed09/21/16 at 0757, Until Wed09/22/16 at 1626, Intra-Operative (Intra-Procedure), Routine Given 09/21/2016 9:50 AM EST 5,000 Units Given 09/21/2016 7:57 AM EST 5,000 Units hydrALAZINE (APRESOLINE) injection 10 mg 10 mg, Intravenous, EVERY 4 HOURS PRN, Starting on Wed09/23/16 at 1024, Until Wed09/25/16 at 1834, High Blood Pressure, sbp>120 lidocaine (PF) (XYLOCAINE) 100 mg/5 mL (2 %) injection ONCE PRN, Starting on Wed09/21/16 at 1011, Until Wed09/25/16 at 1834, Intra-Operative (Intra-Procedure), Routine Given 09/21/2016 10:11 AM EST 200 mg magnesium hydroxide (MILK OF MAGNESIA) oral suspension 10 mL 10 mL, Oral, DAILY, First dose on Wed09/23/16 at 0900, Until Discontinued, Post-op day 2. Do not use with renal insufficiency., Routine Given 09/23/2016 8:17 AM EST 10 mLs magnesium sulfate 4 mEq/mL (50 %) injection ONCE PRN, Starting on Wed09/21/16 at 1011, Until Wed09/22/16 at 1626, Intra-Operative (Intra-Procedure), Routine Given 09/21/2016 10:11 AM EST 2 g mannitol (50 grams and over) 100 g/500 mL (20%) infusion CONTINUOUS PRN, Starting on Wed09/21/16 at 1010, Until Wed09/21/16 at 1206, Intra-Operative (Intra-Procedure) New Bag 09/21/2016 10:10 AM EST 60 g meTOPROLOL tartrate (LOPRESSOR) tablet 25 mg 25 mg, Oral, EVERY 12 HOURS SCHEDULED (2 times per day), First dose (after last modification) on Wed09/23/16 at 2100, Until Discontinued, Hold for HR<60. Hold for SP<90, Routine Given 09/25/2016 9:41 AM EST 25 mg Given 09/24/2016 8:43 PM EST 25 mg Given 09/24/2016 8:29 AM EST 25 mg ondansetron (ZOFRAN) injection 4 mg 4 mg, [...] 09/22/2016 9:33 PM EST 2 tablets sodium bicarbonate 8.4 % (1 mEq/mL) injection ONCE PRN, Starting on Wed09/21/16 at 0855, Until Wed09/23/16 at 1102, Intra-Operative (Intra-Procedure), Routine Given 09/21/2016 8:55 AM EST 50 mEq sodium chloride 0.9 % flush 5 mL 5 mL, Intravenous, EVERY 8 HOURS, First dose on Wed09/22/16 at 1100, Until Discontinued, Routine Given 09/25/2016 3:00 AM EST 5 mLs Given 09/24/2016 8:44 PM EST 5 mLs Given 09/24/2016 11:00 AM EST 5 mLs thrombin (Bovine) (THROMBINAR) kit ONCE PRN, Starting on Wed09/21/16 at 0945, Until Wed09/22/16 at 1628, Intra-Operative (Intra-Procedure) Given 09/21/2016 9:45 AM EST 20,000 Units 19- Surgical Site vancomycin (VANCOCIN) injection ONCE PRN, Starting on Wed09/21/16 at 0944, Until Wed09/21/16 at 1343, Intra-Operative (Intra-Procedure), Routine Given 09/21/2016 9:44 AM EST 1 g 19- Surgical Site documented in this encounter Active and Recently [...] Alie Whitfield RN)1150 (Given - Provider: Marek Barnes, VALDO)1852 (Given - Provider: Chaya Hill RN) 0000 (Not Given - Provider: Alie Whitfield RN - Reason: Patient/family refused)0600 (Not Given - Provider: Breanna Olivas RN - Reason: Patient/family refused)0942 (Given - Provider: Joselyn Caceres RN - Comment: not given at 0600)1600 (Due - Provider: Kendall Martínez [facility]) aspirin chewable tablet 81 mg(Linked Group 1) [...] (See Alternative - Provider: Elsa Miguel RN) 0829 (See Alternative - Provider: Marek Barnes RN) 0942 (See Alternative - Provider: Joselyn Caceres RN) atorvastatin (LIPITOR) tablet 10 mg 10 mg, Oral, EVERY EVENING, First dose on Wed09/21/16 at 1700, Until Discontinued, Routine 1708 (Given - Provider: Federico Apple RN) 1622 (Given - Provider: Chaya Hill RN) buPROPion [...] dose on Wed09/21/16 at 1230, Until Discontinued, [place] teeth, Routine 0900 (Not Given - Provider: Elsa Miguel RN - Reason: Patient/family refused)2018 (Given - Provider: Federico Apple RN) 0900 (Not Given - Provider: Marek Barnes RN - Reason: Patient/family refused)2099 (Not Given - Provider: Alie Whitfield RN - Reason: Patient/family refused) 0940 (Given - Provider: Joselyn Caceres RN) fluconazole (DIFLUCAN) tablet 200 mg 200 mg, [...] Until Discontinued 1301 (Given - Provider: Federico Apple RN)1708 (Given - Provider: Federico Apple RN) 0826 (Given - Provider: Marek Barnes RN)1622 (Given - Provider: Chaya Hill RN) 0941 (Given - Provider: Joselyn Caceres RN) furosemide (LASIX) tablet 20 mg 20 mg, Oral, DAILY, 7 doses, First dose on Wed09/26/16 at 0900, Last dose on Wed10/02/16 at 0900, Routine magnesium hydroxide (MILK OF MAGNESIA) oral suspension 10 mL 10 mL, Oral, DAILY, First dose on Wed09/23/16 at 0900, Until Discontinued, Post-op day 2. Do not use with renal insufficiency., Routine 816 (Given - Provider: Elsa Miguel RN) 899 (Not Given - Provider: Marek Barnes RN - Reason: Patient/family refused) 09 (Not Given - Provider: Joselyn Caceres RN - Reason: Patient/family refused) meTOPROLOL (LOPRESSOR) tablet 12.5 mg (CANCELED) 12.5 mg, Oral, EVERY 12 HOURS SCHEDULED (2 times per day), First dose on Wed09/22/16 at 0900, Until Discontinued, Hold for HR<60. Hold for SP<90, Routine 816 (Given - Provider: Elsa Miguel RN) meTOPROLOL tartrate (LOPRESSOR) tablet 25 mg 25 mg, Oral, EVERY 12 HOURS SCHEDULED (2 times per day), First dose (after last modification) on Wed09/23/16 at 2100, Until Discontinued, Hold for HR<60. Hold for SP<90, Routine 2017 (Given - Provider: Federico Apple RN) 08 (Given - Provider: Marek Barnes, VALDO)2042 (Given - Provider: Alie Whitfield RN) 0941 (Given - Provider: Joselyn Caceres RN) pantoprazole (PROTONIX) injection 40 mg(Linked Group 2) 40 mg, Intravenous, DAILY, First dose on Wed09/21/16 at 1230, Until Discontinued, Reconstitute with 10 mL of normal saline to a concentration of 4 mg/mL and infuse slowly over 2 minutes. , Routine 816 (See Alternative - Provider: Elsa Miguel RN) 08 (See Alternative - Provider: Marek Barnes, VALDO) 0941 (See Alternative - Provider: Joselyn Caceres, VALDO) pantoprazole (PROTONIX) tablet 40 mg(Linked Group 2) 40 mg, Oral, DAILY, First dose on Wed09/21/16 at 1230, Until Discontinued, DO NOT CRUSH OR OPEN If unable to take PO, may give IV 0817 (Given - Provider: Elsa Miguel RN) 0829 (Given - Provider: Marek Barnes, RN) 0941 (Given - Provider: Joselyn Caceres, [...] Routine 2100 (Not Given - Provider: Federico Apple RN - Reason: Patient/family refused) 2100 (Not [...] Elsa Miguel RN)2019 (Given - Provider: Federico Apple, VALDO) 0300 (Given - Provider: Alie Whitfield RN - Comment: flushed earlier in shift)1100 (Given - Provider: Marek Barnes, VALDO)2044 (Given - Provider: Alie Whitfield RN) 0300 (Given - Provider: Alie Whitfield RN - Comment: given earlier in shift)1100 (Not Given - Provider: Joselyn Caceres, VALDO - Reason: See comment - Comment: given [...] Pressure, sbp>110 0818 (Given - Provider: Elsa Miguel RN) hydrALAZINE (APRESOLINE) injection 10 mg 10 mg, [...] Routine documented in this encounter Care Teams Corncob Pipe Supervisor Relationship Specialty Start Date End Date Deborah Quiroga, ANURAG PCP - General Family Medicine 03/24/16 02/04/23 documented as of this encounter
--- OUTSIDE RECORDS SUMMARY | 2024-02-15 14:10 | XMS_ITS | Encounter Summary ---
Author Organization [facility] [place] [address] Care Team Providers Care Appointment Manager Name Role Phone Deborah Quiroga APRN Primary Care Provider Encounter Details Date Type Department Care Team (Latest Contact Info) Description 07/10/2016 2:54 PM EST - 07/10/2016 11:59 PM EST [place] [phone] Discharge Disposition: Home Social History Tobacco Use [...] Sig Dispensed Refills Start Date End Date multivitamin (THERAGRAN) Tablet Take 1 tablet by mouth daily. atorvastatin (LIPITOR) 10 mg Tablet Take 10 mg by mouth daily. aspirin 81 mg EC tablet Take 81 mg by mouth daily. chlorhexidine (HIBICLENS) 4 % LiquidIndications:Non rheumatic aortic valve stenosis Apply topically daily as needed. Shower from head to toe with Chlorhexidine the night before surgery . 120 mL 05/19/2016 09/25/2016 ramipril (ALTACE) 10 mg Capsule Take 10 mg by mouth daily. 09/25/2016 meTOPROLOL tartrate (LOPRESSOR) 25 mg Tablet Take 25 mg by mouth 2 times daily. 02/05/2023 buPROPion (WELLBUTRIN SR) 100 mg Tablet Sustained Release Take 100 mg by mouth every evening. 11/11/2020 spironolactone (ALDACTONE) 25 mg tablet Take 12.5 mg by mouth daily. 01/17/2014 09/25/2016 buPROPion (WELLBUTRIN SR) 150 mg 12 hr tablet Take 150 mg by mouth 2 times daily. 12/13/2013 01/09/2022 documented as of this encounter Plan of Treatment Upcoming Encounters Date Type Department Care Team (Late st Contact Info) Description 02/22/2024 4:15 PM EDT Office Visit Dermatology at [place] [address] [place] [address] Marek Bonilla MD [address] [facility] [place] [address] 06/05/2024 11:30 AM EST Office [place] [address] Magdalena Peralta MD [facility] [place] [address] documented as of this encounter Procedures Procedure Name Priority Date/Time Associated Diagnosis Comments BONE MARROW FINAL REPORT Routine 07/10/2016 3:43 PM EST documented in this encounter Results * Bone Marrow Final Report (07/10/2016 3:43 PM EST) Bone Marrow Final Report [id number] ?Location: [facility] The signing pathologist has (i) examined the relevant preparation(s) for the specimen(s) and (ii) rendered or confirmed the diagnosis(es). . ? Bone Marrow Final DIAGNOSIS BONE MARROW (PERIPHERAL SMEAR, ASPIRATE SMEAR, TOUCH PREP, CLOT SECTION, CORE BIOPSY); [OSR# [id number], COLLECTED 06/23/2016, 19 SLIDES]: ?? 1. ??Normocellular marrow (30-40% cellularity) with complete multilineage ?hematopoiesis ?? 2. ??Few benign lymphoid aggregates are seen, but no abnormal lymphoproliferation or ?significant features of dysplasia are appreciated; supported by immunophenotyping ?studies ?? 3. ??Iron stores are adequate per iron stains ?? 4. ??Peripheral blood with leukopenia ?? 5. ??Per report from the referring institution; ?Flow cytometry studies on the marrow aspirate did not show immunophenotypic ? evidence for involvement by a clonal lymphoproliferative or myeloproliferative ? disorder (OSR# [id number]) ?Chromosome analysis on the marrow aspirate revealed a normal female karyotype; ?46,XX[25] ??(OSR# [id number]) Electronically signed by: ??Elian Guillen MD Verified: ??07/13/2016 ?Hematopathologist DISCUSSION We concur with the findings and interpretation rendered at the referring institution. No specific etiology for the peripheral cytopenias is appreciated in this biopsy. Factors which may contribute to an acquired leukopenia include infection, autoimmune disease, or medication effect. The findings are not supportive for marrow dysplasia or aplasia, and no myelophthisic process is appreciated. Benign lymphoid aggregates may be seen in the bone marrow as a normal age-related finding, but may also seen in association with autoimmune disorders and various infections. Clinical correlation is recommended. PERIPHERAL SMEAR Per attached report, a concurrent hemogram and differential showed: WBC 1.45x10 3/uL, RBC 3.84x10 6/uL, HGB 12.3g/dL, HCT 37.0%, MCV 96.4fL, MCHC 33.2g/dL, RDW-CV 11.6%, PLT 219x10 ?? 3/uL Band/Seg 0.52 x103/uL; Lymph 0.75 x103/uL; [place] 0.15 x103/uL; Eos 0.01%; Baso 0.01 x10 3/uL; The peripheral smear shows normochromic, normocytic erythrocytes. Anisocytosis is not increased, but some poikilocytosis is seen with macrocytes, elliptocytes, and few teardrop cells. There is a slight subjective increase in rouleaux formation. Polychromasia is not increased. The platelet count and morphology are normal. There is a leukopenia associated with absolute neutropenia, lymphopenia, and monocytopenia. The few circulating neutrophils appear mature, and are without myeloid left shift or features of dysplasia. The lymphocytes show a range of acceptable morphologic forms. BONE MARROW ASPIRATE Bone marrow smears and touch preparations are aparticulate and somewhat hemodilute, however some hematopoietic elements are present for evaluation. Myeloid and erythroid maturation appear complete, without significant left-shift, and seem to be appropriate in relative proportions. Few granulocyte precursors show cytoplasmic vacuoles and few erythroid precursors show nuclear contour irregularities, but these represent far fewer than 10% of their respective lines. Rare scattered . BONE MARROW ASPIRATE megakaryocytes are present and show normal morphology. Scattered lymphocytes and few plasma cells are seen. No eosinophilia or basophilia is identified. The iron stained smear is aparticulate and iron stores cannot be reliably assessed. Iron incorporation is not definitively appreciated, but no ring sideroblasts are seen. DIFFERENTIAL A marrow differential is deferred due to specimen limitations. BONE MARROW BIOPSY and/or CLOT The decalcified bone marrow biopsy sections adequate but slightly distorted by crush artifact. The marrow is relatively normocellular with an approximate cellularity of 30-40%. Myeloid and erythroid maturation are complete, and findings appear roughly similar to what was described in the aspirate with an M:E ratio of about 2-3:1. Megakaryocytes are normal in number and appearance. Scattered lymphocytes and rare plasma cells are seen. Rare small well-circumscribed interstitial lymphoid aggregates are present in marrow core #2 (block B2), composed mostly of small lymphocytes and showing no germinal center formation. A small lipogranuloma is also present in this section. The trabecular bone is unremarkable. Iron stains highlight iron stores. The filtered particle sections contain mostly clotted blood, but few marrow spicules show similar findings to those described above. IMMUNOHISTOCHEMISTRY STUDIES Block: ? B1 (Core biopsy 1) Fixative: ?? Formalin ANTIBODY: ?? RESULT/COMMENT CD138 ? Scattered plasma cells represent 3-4% of the cellularity [place] ? Polytypic plasma cell staining, high background Lambda ?Polytypic plasma cell staining, high background Block: ? B2 (Core biopsy 2) Fixative: ?? Formalin ANTIBODY: ?? RESULT/COMMENT CD3 ? Scattered small lymphocytes and lymphoid aggregates highlighted CD20 ?Few scattered small lymphocytes stain ( ?? <CD3 in aggregates) CD138 ? Scattered plasma cells represent 3-4% of the cellularity [place] ? Polytypic plasma cell staining, high background Lambda ?Polytypic plasma cell staining, high background Note: The immunoperoxidase stains reported above were developed and their performance characteristics determined by [facility]. ??They have not been cleared or approved by the U.S. Food and Drug Administration, although such approval is not required for analyte-specific reagents of this type. ??Appropriate positive and negative controls are included for each case. CLINICAL INFORMATION Specimen: ? Slides for BM consultation Clinical Diagnosis: ? Per report, a 60 year old lady with leukopenia. Indication for Study: ?? Evaluate marrow for possible etiology. CONSULTATION CASE A - 19 slides labeled [id number], collection date 06/23/2016. [id number] Report to: [facility] Surgical Pathology Department [facility], [facility], [address]nd Floor [address], [place] ??[address] [facility] 07/10/2016 3:43 PM EST Nitesh Pina Jr., MD PATHOLOGY/CYTOLOGY O RDERABLES [facility] [place] [phone] documented in this encounter Visit Diagnoses Not on filedocumented in this encounter Care Teams Appointment Manager Relationship Specialty Start Date End Date Deborah Quiroga APRN PCP - General Family Medicine 03/24/16 02/04/23 documented as of this encounter
--- OUTSIDE RECORDS SUMMARY | 2024-02-15 14:10 | XMS_ITS | Encounter Summary ---
Author Organization [facility] [place] [address] Care Team Providers Care Sample Room Supervisor Name Role Phone Deborah Quiroga APRN Primary Care Provider [phone] Encounter Details Date Type Department Care Team (Late st Contact Info) Description 08/04/2016 External Results Hematology [place] [address] Alexandrea Greenwood RN Neutropenia, unspecified [...] 4:15 PM EDT Office Visit Dermatology at [address] [place] [address] Marek Bonilla MD [address] [facility] [place] [address] 06/05/2024 11:30 AM EST Office [place] [address] Magdalena Peralta MD [facility] [address] [place] [address] documented as of this encounter Procedures Procedure Name Priority Date/Time Associated Diagnosis Comments CBC (WITH DIFF) STAT 08/04/2016 12:05 PM EST Neutropenia, unspecified type documented in [...] type documented in this encounter Care Teams Sample Room Supervisor Relationship Specialty Start Date End Date Deborah Quiroga, STATION CASHIER PCP - General Family Medicine 03/24/16 02/04/23 documented as of this encounter
--- OUTSIDE RECORDS SUMMARY | 2024-02-15 14:10 | XMS_ITS | Encounter Summary ---
Author Organization [facility] Address [facility] [place] [address] Care Team Providers Care Power Wheelchair Mechanic Name Role Phone Ashley Quirogan Cornelius ANURAG Primary Care Provider [phone] Encounter Details Date Type Department Care Team (Late st Contact Info) Description 08/11/2016 Telephone Hematology and Oncology at [facility] [place] [phone] Markel Borjas MD [facility] [place] [address] Social History Tobacco Use Types Packs/Day Years [...] encounter Miscellaneous Notes * Telephone Encounter - Markel Borjas MD - 08/11/2016 3:50 PM EST I called Purnima to discuss results. As in our last office visit, her work up has been negative to date. Seems like a chronic condition,either medication induced or idiopathic. I was a little surprised that her ANC on day 11 after Neulasta was only 1.1, but I think that should be sufficient to get her through a necessary procedure. I would repeat the neulasta injection 5 days prior to the surgery. This should cover her for 2 weeks. Markel Borjas MD documented in this encounter Plan of Treatment Upcoming Encounters Date Type Department Care Team (Late st Contact Info) Description 02/22/2024 4:15 PM EDT Office Visit Dermatology at [place] [address] [place] [address] Marek Bonilla MD [address] [facility] [place] [address] 06/05/2024 11:30 AM EST Office [place] [address] Magdalena Peralta MD [facility] [place] [address] documented as of this encounter Visit Diagnoses Not on filedocumented in this encounter Care Teams Power Wheelchair Mechanic Relationship Specialty Start Date End Date Deborah Quiroga APRN PCP - General Family Medicine 03/24/16 02/04/23 documented as of this encounter
--- OUTSIDE RECORDS SUMMARY | 2024-02-15 14:10 | XMS_ITS | Encounter Summary ---
[place] [address] Care Team Providers Care Kiln Firer Name Role Phone Deborah Quiroga ANURAG Primary Care Provider [phone] Encounter Details Date Type Department Care Team (Late st Contact Info) Description 09/11/2016 Orders Only Hematology [place] [address] Alexandrea Greenwood RN Social History Tobacco Use Types Packs/Day [...] as of this encounter Progress Notes * Alexandrea Greenwood RN - 09/11/2016 1:20 PM EST Images from the original note were not included. [facility] HEM ONC [facility] [phone] Date: 09/11/16 Patient Name: Onesimo Thacker : 1955 Diagnosis: Neutropenia Referral to [site]: [facility] Orders: ? Growth factor: [x] Neulasta 6mg SQ injection x 1 on 09/16/16 Signature: Markel Borjas MD beeper # [id number] Co-signature [if needed]: documented in this encounter Plan of Treatment Upcoming Encounters Date Type Department Care Team (Late st Contact Info) Description 02/22/2024 4:15 PM EDT Office Visit Dermatology at [place] [address] [place] [address] Marek oBnilla MD [address] [place] [address] 06/05/2024 11:30 AM EST Office [place] [address] Magdalena Peralta MD [facility] [place] [address] documented as of this encounter Procedures Procedure Name Priority Date/Time Associated Diagnosis Comments TRANSESOPHAGEAL ECHOCARDIOGRAM (GAVINO) Routine 09/22/2016 documented in this encounter Results * Transesophageal Echocardiogram (GAVINO) (09/22/2016) Anatomical Region Laterality Modality Other 09/22/2016 Narrative 09/22/2016 8:30 AM EST Procedure: ?Transesophageal Echocardiogram Patient: ?ANDREW ONESIMO M ? (Age): 1955(61y) Med Rec#: ? [id number] ?Sex: ?M ? [place] ? [facility]Ht / Wt: ??(cm)/ (kg) ? Pt. Loc: ?OR ? Study Date: ?? 09/21/2016 ?Pt. Type: Tape: ? Referring: Alirio Farncisco Reading: Henrik Yarbrough ([id number]) Remote Sensing Technician: Jacobo Patel ([id number]) Interpreting Fellow: Jacobo Patel ([id number]) Diagnosis: *Aortic valve disorders (424.1) CPT Codes: *Echo GAVINO Full (59165) Indication: ?? AVR for severe Rhythm: ? Sinus SUMMARY: 1. PRE-OPERATIVE FINDINGS: ??The aortic valve is tricuspid, severely thickened/calcified with reduced excursion. ??There is severe aortic stenosis present (GEOVANNA 0. 6cm2 by planimetry and VTI). Other valvular structures appear morphologically normal without significant regurgitation. Biventricular systolic function is normal with estimated LVEF 65%. ?? 2. POST-OPERATIVE FINDINGS: ??There is now a 25mm bioprosthesis in the aortic position which appears well-seated with normal function. There is no paravalvular leak. ??There is a small independently mobile echodensity between the left and right commisures consistent with a suture. Biventricular systolic function is preserved. ??No other changes are noted when compared with the preoperative study. 3. See remainder of report for additional findings. Findings ? : Study Quality: ? Adequate Left Ventricle: ? There is normal global left ventricular systolic function. ??Ejection fraction is estimated to be 65%. ?There are no left ventricular segmental wall motion abnormalities. Left Atrium: ? No thrombus is visualized within the left atrium. ?There is no evidence of a patent foramen ovale by color Doppler. Right Ventricle: ? The right ventricle is probably normal in size. ?Right ventricular global systolic function is normal. Right Atrium: ? No thrombus is visualized in the right atrium. Aortic Valve: ? The size of the prosthetic aortic valve is 25mm. ?The prosthetic aortic valve was implanted on 09/21/2016. ?The bio-prosthetic aortic valve appears well seated with normal function. ?There is no prosthetic aortic valve regurgitation present. Mitral Valve: ? The mitral valve appears normal in structure and function. ?There is mild (1+/4+) mitral regurgitation present. Tricuspid Valve: ? The tricuspid valve leaflets are morphologically normal. ?There is trace tricuspid regurgitation present. Pulmonic Valve: ? The pulmonic valve appears normal. ?There is no evidence of pulmonic regurgitation. Aorta: ? There is evidence of grade 2 (extensive intimal thickening) atheromatous disease of the ascending aorta. ?There is evidence of grade 2 (extensive intimal thickening) atheromatous disease of the aortic arch. ?There is evidence of grade 2 (extensive intimal thickening) atheromatous disease of the descending thoracic aorta. Gavino Procedures: ? The GAVINO probe was passed in the operating room by the anesthesiologist after the patient was sedated with general anesthesia. Misc: ? See remainder of report for additional findings. Wall Motion: Segment Name ?Rest ? Base-Anteroseptal ?? Normal ? Base-Anterior ? Normal ? Base-Anterolateral ??Normal ? Base-Posterolateral Normal ? Base-Inferior ? Normal ? Base-Inferoseptal ?? Normal ? Mid-Anteroseptal ?Normal ? Mid-Anterior ?Normal ? Mid-Anterolateral ?? Normal ? Mid-Posterolateral ??Normal ? Mid-Inferior ?Normal ? Mid-Inferoseptal ?Normal ? Montour-Septal ? Normal ? Montour-Anterior ? Normal ? Montour-Lateral ?Normal ? Montour-Inferior ? Normal ? Montour-Tip ?Normal ? This report has been electronically signed by: Henrik Yarbrough M.D. ? 09/22/2016 08:30:41 Images reviewed and interpretation verified [facility] Cardiac Ultrasound [facility] Procedure Note Henrik Yarbrough MD - 09/22/2016 Procedure: Transesophageal Echocardiogram Patient: ANDREW Mejias (Age): 1955(61y) Med Rec#: [id number] Sex: M [place] [facility] Ht / Wt: (cm)/ (kg) Pt. Loc: OR Study Date: 09/21/2016 Pt. Type: Tape: Referring: Alirio Francisco Reading: Henrik Yarbrough ([id number]) Remote Sensing Technician: Jacobo Patel ([id number]) Interpreting Fellow: Jacobo Patel ([id number]) Diagnosis: *Aortic valve disorders (424.1) CPT Codes: *Echo GAVINO Full (32131) Indication: AVR for severe Rhythm: Sinus SUMMARY: 1. PRE-OPERATIVE FINDINGS: The aortic valve is tricuspid, severely thickened/calcified with reduced excursion. There is severe aortic stenosis present (GEOVANNA 0. 6cm2 by planimetry and VTI). Other valvular structures appear morphologically normal without significant regurgitation. Biventricular systolic function is normal with estimated LVEF 65%. 2. POST-OPERATIVE FINDINGS: There is now a 25mm bioprosthesis in the aortic position which appears well-seated with normal function. There is no paravalvular leak. There is a small independently mobile echodensity between the left and right commisures consistent with a suture. Biventricular systolic function is preserved. No other changes are noted when compared with the preoperative study. 3. See remainder of report for additional findings. Findings : Study Quality: Adequate Left Ventricle: There is normal global left ventricular systolic function. Ejection fraction is estimated to be 65%. There are no left ventricular segmental wall motion abnormalities. Left Atrium: No thrombus is visualized within the left atrium. There is no evidence of a patent foramen ovale by color Doppler. Right Ventricle: The right ventricle is probably normal in size. Right ventricular global systolic function is normal. Right Atrium: No thrombus is visualized in the right atrium. Aortic Valve: The size of the prosthetic aortic valve is 25mm. The prosthetic aortic valve was implanted on 09/21/2016. The bio-prosthetic aortic valve appears well seated with normal function. There is no prosthetic aortic valve regurgitation present. Mitral Valve: The mitral valve appears normal in structure and function. There is mild (1+/4+) mitral regurgitation present. Tricuspid Valve: The tricuspid valve leaflets are morphologically normal. There is trace tricuspid regurgitation present. Pulmonic Valve: The pulmonic valve appears normal. There is no evidence of pulmonic regurgitation. Aorta: There is evidence of grade 2 (extensive intimal thickening) atheromatous disease of the ascending aorta. There is evidence of grade 2 (extensive intimal thickening) atheromatous disease of the aortic arch. There is evidence of grade 2 (extensive intimal thickening) atheromatous disease of the descending thoracic aorta. Gavino Procedures: The GAVINO probe was passed in the operating room by the anesthesiologist after the patient was sedated with general anesthesia. Misc: See remainder of report for additional findings. Wall Motion: Segment Name Rest Base-Anteroseptal Normal Base-Anterior Normal Base-Anterolateral Normal Base-Posterolateral Normal Base-Inferior Normal Base-Inferoseptal Normal Mid-Anteroseptal Normal Mid-Anterior Normal Mid-Anterolateral Normal Mid-Posterolateral Normal Mid-Inferior Normal Mid-Inferoseptal Normal Montour-Septal Normal Montour-Anterior Normal Montour-Lateral Normal Montour-Inferior Normal Mont[place]-Tip Normal This report has been electronically signed by: Henrik Yarbrough M.D. 09/22/2016 08:30:41 Images reviewed and interpretation verified [facility] Cardiac Ultrasound [facility] Unknown ECHO ORDERABLES documented in this encounter Visit Diagnoses Not on filedocumented in this encounter Care Teams Kiln Firer Relationship Specialty Start Date End Date Deborah Quiroga APRN PCP - General Family Medicine 03/24/16 02/04/23 documented as of this encounter
--- OUTSIDE RECORDS SUMMARY | 2024-02-15 14:10 | XMS_ITS | Encounter Summary ---
[place] [address] Care Team Providers Care Cafeteria Associate Name Role Phone JunaidDeborah APRN Primary Care Provider [phone] Reason for Visit * Reason Onset Date Comments Labs Only 09/16/2016 Encounter Details Date Type Department Care Team (Late st Contact Info) Description 09/16/2016 Telephone Hematology [place] [address] Alexandrea Greenwood, RN Labs Only Social History Tobacco Use Types Packs/Day Years [...] Telephone Encounter - Alexandrea Greenwood RN - 09/16/2016 11:09 AM EST Message received from ward secretary: Purnima is having her Neulasta done today at [facility]. ??She is wondering if we want to do a CBC prior to the injection? [phone] Borjas: CBC is fine RN spoke with Swapna at [facility] who confirms they can draw CBC on pt today, RN faxed CBC w/diff to [facility] lab at [phone] RN relayed to pt that CBC ordered had been faxed to [facility], pt will have CBC drawn today prior to neulasta injection. documented in this encounter Plan of Treatment Upcoming Encounters Date Type Department Care Team (Late st Contact Info) Description 02/22/2024 4:15 PM EDT Office Visit Dermatology at [place] [address] [place] [address] Marek Bonilla MD [address] [address] 06/05/2024 11:30 AM EST Office [place] [address] Magdalena Peralta MD [facility] [place] [address] documented as of this encounter Results * [...] type documented in this encounter Care Teams Cafeteria Associate Relationship Specialty Start Date End Date Deborah Quiroga APRN PCP - General Family Medicine 03/24/16 02/04/23 documented as of this encounter
--- OUTSIDE RECORDS SUMMARY | 2024-02-15 14:10 | XMS_ITS | Encounter Summary ---
Author Organization [facility] [place] [address] Care Team Providers Care Invasive Cardiovascular Technologist Name Role Phone Deborah Quiroga APRN Primary Care Provider [phone] Encounter Details Date Type Department Care Team (Late st Contact Info) Description 07/31/2016 External Results Hematology [place] [address] Alexandrea Greenwood RN Neutropenia, unspecified [...] PM EDT Office Visit Dermatology at [address] [place] [address] Marek Bonilla MD [address] [facility] [place] [address] 06/05/2024 11:30 AM EST Office [place] [address] Magdalena Peralta MD [facility] [place] [address] documented as of this encounter Procedures Procedure Name Priority Date/Time Associated Diagnosis Comments CBC (WITH DIFF) Routine 07/31/2016 9:40 AM EST Neutropenia, unspecified type documented in [...] specimen (specimen) 07/31/2016 9:40 AM EST Markel Bojras MD HEMATOLOGY [facility] documented in this encounter Visit Diagnoses Diagnosis Neutropenia, unspecified type documented in this encounter Care Teams Invasive Cardiovascular Technologist Relationship Specialty Start Date End Date Deborah Quiroga, RETENTION MANAGER PCP - General Family Medicine 03/24/16 02/04/23 documented as of this encounter
--- OUTSIDE RECORDS SUMMARY | 2024-02-15 14:10 | XMS_ITS | Encounter Summary ---
[place] [address] Care Team Providers Care Transformer Assembler Name Role Phone Ashley Quirogan Cornelius ANURAG Primary Care Provider [phone] Reason for Visit * Reason Onset Date Comments Medical Care Coordination 09/14/2016 Encounter Details Date Type Department Care Team (Late st Contact Info) Description 09/14/2016 Telephone Hematology [place] [address] Alexandrea Greenwood RN Medical Care Coordination Social [...] Encounter - Alexandrea Greenwood RN - 09/14/2016 9:10 AM EST Message received from legal secretary receptionist: Injection/Infusion Referral Call placed to [facility] Infusion Room Spoke charis Bragg. Services to be provided for pt are: Miles 09/16/16 Mahsa confirmed they would provide services to pt and would contact with appointment time. Pt aware to expect the phone call ??orders faxed to [phone]). documented in this encounter Plan of Treatment Upcoming Encounters Date Type Department Care Team (Late st Contact Info) Description 02/22/2024 4:15 PM EDT Office Visit Dermatology at [place] [address] [place] [address] Marek Bonilla MD [address] [place] [address] 06/05/2024 11:30 AM EST Office [place] [address] Magdalena Peralta MD [facility] [place] [address] documented as of this encounter Visit Diagnoses Not on filedocumented in this encounter Care Teams Transformer Assembler Relationship Specialty Start Date End Date Deborah Quiroga APRN PCP - General Family Medicine 03/24/16 02/04/23 documented as of this encounter
--- OUTSIDE RECORDS SUMMARY | 2024-02-15 14:11 | XMS_ITS | Encounter Summary ---
[place] [address] Care Team Providers Care Body Bumper Name Role Phone Mitchell Wilkes MD Primary Care Provider [phone] Reason for Visit * Reason Onset Date Comments Other 01/18/2014 Encounter Details Date Type Department Care Team (Late st Contact Info) Description 01/18/2014 Telephone Cardiology at [address] [address] Jesusita Garces Other Social History Tobacco Use Types Packs/Day Years Used Date Smoking Tobacco: Never Assessed Sex and Gender Information Value Date Recorded Sex Assigned at Not on file Gender Identity Not on file Sexual Orientation Not on file documented as of this encounter Miscellaneous Notes * Telephone Encounter - Jesusita Garces - 01/18/2014 10:25 AM EDT Name: Purnima M Kirstie Referring Doctor: MARK GAY Procedure Date: 01/23/2014 Diagnosis:CM Diabetic Y/N, meds: N Coumadin present Y/N:N IV Dye or Contrast Allergy Y/N:N Hx: scanned Orders: not done Patient will be expecting phone teaching call Jesusita Garces 01/18/2014 documented in this encounter Plan of Treatment Upcoming Encounters Date Type Department Care Team (Late st Contact Info) Description 02/22/2024 4:15 PM EDT Office Visit Dermatology at [address] [address] Marek Bonilla MD [address] [place] [address] 06/05/2024 11:30 AM EST Office [place] [address] Magdalena Peralta MD [facility] [place] [address] documented as of this encounter Visit Diagnoses Not on filedocumented in this encounter Care Teams Body Bumper Relationship Specialty Start Date End Date Mitchell Wilkes MD [facility] PCP - General 06/24/10 01/19/14 documented as of this encounter
--- OUTSIDE RECORDS SUMMARY | 2024-02-15 14:11 | XMS_ITS | Encounter Summary ---
Author Organization [facility] Address [facility] [place] [address] Care Team Providers Care Model Builder Name Role Phone Deborah Quiroga APRN Primary Care Provider [phone] Encounter Details Date Type Department Care Team (Latest Contact Info) Description 05/19/2016 11:52 AM EDT - 05/19/2016 11:59 PM EDT Hospital Encounter XRay at [address] [place] [address] Alirio Esparza MD [facility] [place] [address] Nonrheumatic aortic valve stenosis Discharge Disposition: Home Social History Tobacco Use [...] 4:15 PM EDT Office Visit Dermatology at [place] [address] [place] [address] Marek Bonilla MD [address] [facility] [place] [address] 06/05/2024 11:30 AM EST Office [place] [address] Magdalena Prealta MD [facility] [place] [address] documented as of this encounter Procedures Procedure Name Priority Date/Time Associated Diagnosis Comments XR CHEST PA AND LATERAL Routine 05/19/2016 12:07 PM EDT Nonrheumatic aortic valve stenosis documented in this encounter Results * XR Chest PA & Lateral (Generic) (05/19/2016 12:07 PM EDT) Anatomical Region Laterality Modality Chest N/A Digital Radiogra phy Impressions 05/19/2016 12:45 PM EDT No active cardiopulmonary pathology identified. Narrative 05/19/2016 12:45 PM EDT EXAMINATION: XR CHEST PA AND LATERAL (GENERIC) CLINICAL HISTORY: pre op TECHNIQUE: PA and lateral views of the chest. ? COMPARISON: None. FINDINGS: The lungs appear clear. The cardiomediastinal silhouette, melita, pulmonary vessels, and pleura are within normal limits. No significant osseous findings are seen. Procedure Note Kia Kelly MD - 05/19/2016 EXAMINATION: XR CHEST PA AND LATERAL (GENERIC) CLINICAL HISTORY: pre op TECHNIQUE: PA and lateral views of the chest. COMPARISON: None. FINDINGS: The lungs appear clear. The cardiomediastinal silhouette,melita, pulmonary vessels, and pleura are within normal limits. No significantosseous findings are seen. IMPRESSION No active cardiopulmonary pathology identified. Alirio Esparza MD IMG DX ORDERABLES documented in this encounter Visit Diagnoses Diagnosis Nonrheumatic aortic valve stenosis Aortic valve disorders documented in this encounter Care Teams Model Builder Relationship Specialty Start Date End Date Deborah Quiroga, SOFTWARE RELIABILITY ENGINEER PCP - General Family Medicine 03/24/16 02/04/23 documented as of this encounter
--- OUTSIDE RECORDS SUMMARY | 2024-02-15 14:11 | XMS_ITS | Encounter Summary ---
Author Organization [facility] Address [facility] [place] [address] Care Team Providers Care Wood Miller Name Role Phone Deborah Quiroga ANURAG Primary Care Provider [phone] Encounter Details Date Type Department Care Team (Latest Contact Info) Description 06/19/2016 - 06/19/2016 11:59 PM EST Hospital Encounter [place] [address] Nitesh Pina Jr., MD [facility] HEMATOLOGY/[place] [address] Pain Discharge Disposition: Home Social History Tobacco [...] 4:15 PM EDT Office Visit Dermatology at [place] [address] [facility] [place] [address] Marek Bonilla MD [address] [facility] [place] [address] 06/05/2024 11:30 AM EST Office [place] [address] Magdalena Peralta MD [facility] [address] [place] [address] documented as of this encounter Procedures Procedure Name Priority Date/Time Associated Diagnosis Comments FILM LIBRARY STORAGE ONLY CT CHEST ABDOMEN PELVIS Routine 06/19/2016 12:00 AM EST Pain documented in this encounter Results * Film Library- Storage Only CT Chest Abdomen Pelvis (06/19/2016 12:00 AM EST) Narrative [facility] - 06/20/2016 8:53 AM EST This exam is for storage only and is auto-finalizing. Nitesh Pina Jr., MD IMG FILM LIBRARY ORD ERABLES [place], [place] documented in this encounter Visit Diagnoses Diagnosis Pain Generalized pain documented in this encounter Care Teams Wood Miller Relationship Specialty Start Date End Date Deborah Quiroga APRN PCP - General Family Medicine 03/24/16 02/04/23 documented as of this encounter
--- OUTSIDE RECORDS SUMMARY | 2024-02-15 14:11 | XMS_ITS | Encounter Summary ---
Author Organization [facility] Address [facility] [place] [address] Care Team Providers Care Molder Punch Name Role Phone Junaid Deborah Shields APRN Primary Care Provider [phone] Encounter Details Date Type Department Care Team (Latest Contact Info) Description 05/19/2016 11:00 AM EDT Clinical [place] [address] Nonrheumatic aortic valve stenosis Social History Tobacco Use Types Packs/Day [...] as of this encounter Progress Notes * Hoda Castillo RN - 05/19/2016 11:00 AM EDT PAT questionnaire reviewed with patient while in Pre Admission testing. Patient reports no problemswith anesthesia in the past. Pre-operative instruction booklet reviewed with patient. Reviewed importance of pain control and cough and deep breathing exercise during the post-operative period. Instructed patient on use of Hibiclens soap to shower with the night before surgery or the morning of surgery. Pt verbalizes good understanding of all information reviewed. PLAN Testing: Labs, T+S, EKG done today. Patient sent to radiology for chest x ray as ordered. Special medication instructions: n/a Procedure date: 06/08/16 - Dr. Esparza - not booked. Pre op call - may call work number - patient working until 4:30P. documented in this encounter Plan of Treatment Upcoming Encounters Date Type Department Care Team (Late st Contact Info) Description 02/22/2024 4:15 PM EDT Office Visit Dermatology at [place] [address] [facility] [place] [address] Marek Bonilla MD [address] [facility] [place] [address] 06/05/2024 11:30 AM EST Office [place] [address] Magdalena Peralta MD [facility] [place] [address] documented as of this encounter Procedures Procedure Name Priority Date/Time Associated Diagnosis Comments EKG 12-LEAD Routine 05/19/2016 11:43 AM EDT Nonrheumatic aortic valve stenosis documented in this encounter Results * EKG 12 Lead (05/19/2016 11:43 AM EDT) Ventricular rate 72 BPM MUSE SYSTEM Atrial Rate 72 BPM MUSE SYSTEM P-R Interval 128 ms MUSE SYSTEM QRS Duration 92 ms MUSE SYSTEM Q-T Interval 410 ms MUSE SYSTEM QTC Calculated (Bezet) 448 ms MUSE SYSTEM Calculated P [place] 37 degrees MUSE SYSTEM Calculated R [place] 31 degrees MUSE SYSTEM Calculated T [place] 25 degrees MUSE SYSTEM INTERPRETATION Normal sinus rhythm Normal ECG No previous ECGs available Confirmed by MD Becca, Deangelo ([id number]) on 05/19/2016 5:23:33 PM MUSE SYSTEM 05/19/2016 11:4 3 AM EDT 05/19/2016 5:23 PM EDT Alirio Esparza MD ECG ORDERABLES MUSE SYSTEM documented in this encounter Visit Diagnoses Diagnosis Nonrheumatic aortic valve stenosis Aortic valve disorders documented in this encounter Care Teams Molder Punch Relationship Specialty Start Date End Date Deborah Quiroga, PLANETARIUM TECHNICIAN PCP - General Family Medicine 03/24/16 02/04/23 documented as of this encounter
--- OUTSIDE RECORDS SUMMARY | 2024-02-15 14:11 | XMS_ITS | Encounter Summary ---
Author Organization [facility] Address [facility] [place] [address] Care Team Providers Care Slot Host Name Role Phone Mitchell Wilkes MD Primary Care Provider [phone] Encounter Details Date Type Department Care Team (Late st Contact Info) Description 01/19/2014 Orders Only Cardiology at [address] [address] Chele Randolph, PA [facility] [address] [place] [address] Cardiomyopathy (Primary Dx) Social History Tobacco Use Types Packs/Day Years Used Date Smoking Tobacco: Never Assessed Sex and Gender Information Value Date Recorded Sex Assigned at Not on file Gender Identity Not on file Sexual Orientation Not on file documented as of this encounter Procedure Notes * ProviderAmy - 01/23/2014 1:00 PM EDTAssociated Order(s): CARDIAC CATHETERIZATION documented in this encounter Plan of Treatment Upcoming Encounters Date Type Department Care Team (Late st Contact Info) Description 02/22/2024 4:15 PM EDT Office Visit Dermatology at [place] [address] [place] [address] Marek Bonilla MD [address] [facility] [place] [address] 06/05/2024 11:30 AM EST Office [place] [address] Magdalena Peralta MD [facility] [address] [place] [address] documented as of this encounter Procedures Procedure Name Priority Date/Time Associated Diagnosis Comments CARDIAC CATHETERIZATION Routine 01/24/20 14 12:40 PM EDT Cardiomyopathy documented in this encounter Results * Cardiac Catheterization (01/23/2014 12:40 PM EDT) Anatomical Region Laterality Modality Other Narrative 01/26/2014 4:14 PM EDT Procedure Note Provider, Scanning - 01/23/2014 1:00 PM EDT Nitesh Mcnair MD CARDIAC CATH ORDERAB LES documented in this encounter Visit Diagnoses Diagnosis Cardiomyopathy- Primary Other primary cardiomyopathies Cardiomyopathy Other primary cardiomyopathies documented in this encounter Care Teams Slot Host Relationship Specialty Start Date End Date Mitchell Wilkes MD [facility] PCP - General 06/24/10 01/19/14 documented as of this encounter
--- OUTSIDE RECORDS SUMMARY | 2024-02-15 14:11 | XMS_ITS | Encounter Summary ---
Author Organization [facility] [place] [address] Care Team Providers Care X Ray Control Equipment Repairer Name Role Phone Deborah Quiroga APRN Primary Care Provider [phone] Encounter Details Date Type Department Care Team (Late st Contact Info) Description 05/22/2016 Orders Only Cardiology at [address] [phone] Chele Randolph, [facility] [address] [place] [address] Aortic valve stenosis, unspecified etiology Social History [...] 4:15 PM EDT Office Visit Dermatology at [address] [place] [phone] Marek Bonilla MD [address] [facility] [place] [address] 06/05/2024 11:30 AM EST Office [place] [phone] Magdalena Peralta MD [facility] [place] [address] documented as of this encounter Procedures Procedure Name Priority Date/Time Associated Diagnosis Comments CARDIAC CATHETERIZATION Routine 06/03/20 16 9:13 AM EDT Aortic valve stenosis, unspecified etiology documented in this encounter Results * CARDIAC CATHETERIZATION (06/03/2016 9:13 AM EDT) Anatomical Region Laterality Modality Other Narrative 06/03/2016 10:13 AM EDT ?[facility] ? Cardiac Catheterization/Intervention Report ? Patient Name: Purnima Thacker M. ? Procedure Date: 06/03/2016 ? A #: [id number] ? Primary Physician: Fanny, Nitesh E ? Case #: [id number] ? File Name: [id number] ? Catheterization Order Number: [id number] ? [facility] ? Final Report [place], [place] ? Patient Name: ? Purnima M. Kirstie ? ID#: ?[id number] ? : ?1955 ? Procedure Date: ? June 03, 2016 ? Case #: ? [id number] ? Room: ? 1 ? Case Physician: ? Nitesh Escobedo M.D. ? Start: ?08:22 ?Fellow: ? Felicia Corrigan M.D. ? Admission: ??06/03/2016 ?Linda Cary M.D. ? Discharge: ??06/03/2016 ? Referring Physician: ??Obi Padron. ? Procedures: ?* Coronary Angiography ?* Right Heart Catheterization ?* Oximetry ? History ?Purnima Thacker is a 60 year old woman. She has hypertension. The ?patient has hypercholesterolemia managed with lipid therapy. She has a ?history of dyspnea with NYHA functional class I. The patient has aortic ?stenosis. She also has a history of a heart murmur. Prior to the ?initiation of this procedure, the patient was designated as ASA Class II. ? Patient Status at Catheterization: ?The patient presented with: no symptom, no angina (w/i 14 days). [place] ?Cardiovascular Society angina class was 0. This patient was on beta ?blockers prior to the procedure. No stress or imaging studies were ?performed prior to this procedure ? Technique: ?A 5 SLFr sheath was inserted in the right median antecubital vein ?utilizing the Seldinger technique. A 6 SLFr sheath was inserted in the ?right radial artery utilizing the Seldinger technique. The left coronary ?artery was injected utilizing a 6Fr TIG 4.0 catheter. A 6Fr TIG 4.0 ?catheter was used to inject the right coronary artery. Right heart ?catheterization was performed utilizing a 5Fr Pulmonary Wedge catheter. ?5,000 units of heparin were administered. A total of 100cc of Omnipaque ?were opened, 40cc of Omnipaque were administered and 60cc of Omnipaque ?were wasted. Radiation: Fluoro time was 4.4 minutes, dose area product ?was 40,696 mGYcm2 and air kerma was 572 mGY. ?The patient received the following medications prior to and during the ?procedure: Aspirin (any) and Unfractionated Heparin (any). ? Hemodynamics: ?Right Heart Pressures ? Hemodynamics: ? Syst Diast ? EDP ?a ?v ? m ?RA ? 6 ?4 ? 3 ?RV 22 ?5 ?PA 23 ? 6 ?12 ?PCW ?11 ?10 ? 7 ? Hemodynamic Profile: ?Profile 1 ?CO ? 5.50 ?CI ? 2.71 ?TSR ? 1,353 ?SVR ? 1,309 ?TPR ?175 ?PVR ?73 ?Technique ?Estimated Kiara ?Left Heart Pressures ? Resting: ? Syst Diast ? EDP ?a ?v ? m ?Ao 140 ?? 71 ?93 ? Oximetry: ?Location ? %Sat ?Location ?%Sat ?Superior Vena Cava ? 61.0 ?Main Pulmonary Artery ?? 69.0 ?Radial artery ?98.0 ? Coronary Angiography: ?Dominance: Right ?Left Main ? The left main was normal. ?Left Anterior Descending ? There was mild diffuse disease of the proximal segment of the left ? anterior descending artery (LAD). ? There is a large recurrent apical branch of the LAD, which supplies ? a large potion of the inferior septum. ?Left Circumflex ? The left circumflex (LCX) was normal. ?Right Coronary Artery ? The right coronary artery (RCA) was normal. ? RCA is a moderate sized vessel, wtih small PDA. ? Indication for Selected Procedures: ?Right Heart catheterization was initiated for Aortic valve disorders ?(424.1). ? Vascular Access: ?Vascular Access Management: ? Mechanical Compression of the right radial artery access site was ? performed. ? Conclusions: ?* Nonobstructive coronary artery disease ? Complications/Events: ?The patient had no complications during these procedures. ?The attending physician was present for the entire procedure. ?Dr. Nitesh Escobedo M.D. performed the coronary angiography, right heart ?catheterization and oximetry. ? Nitesh Escobedo M.D. ? Electronically Signed by: Nitesh Escobedo M.D. ? Report Finalized: 06/03/2016 ??10:04 ? Report Last Ammended: 09/21/2016 ??09:37 ? Procedure Note Nitesh Escobedo MD - 09/21/2016 [facility] Cardiac Catheterization/Intervention Report Patient Name: Purnima Thacker Procedure Date: 06/03/2016 A #: [id number] Primary Physician: Nitesh Escobedo Case #: [id number] File Name: [id number] Catheterization Order Number: [id number] [facility] FinalReport [place], [place] Patient Name: Purnima Thacker ID#:[id number] :1955 Procedure Date: June 03, 2016 Case #: [id number] Room: 1 Case Physician: Nitesh Escobedo M.D. Start: 08:22 Fellow: Felicia Corrigan M.D. Admission:06/03/2016 Linda Cary M.D. Discharge:06/03/2016 Referring Physician: Kathy Padron Procedures: * Coronary Angiography * Right Heart Catheterization * Oximetry History Purnima Thacker is a 60 year old woman. She has hypertension. The patient has hypercholesterolemia managed with lipid therapy. She hasa history of dyspnea with NYHA functional class I. The patient hasaortic stenosis. She also has a history of a heart murmur. Prior to the initiation of this procedure, the patient was designated as ASAClass II. Patient Status at Catheterization: The patient presented with: no symptom, no angina (w/i 14 days).[place] Cardiovascular Society angina class was 0. This patient was on beta blockers prior to the procedure. No stress or imaging studies were performed prior to this procedure Technique: A 5 SLFr sheath was inserted in the right median antecubital vein utilizing the Seldinger technique. A 6 SLFr sheath was inserted inthe right radial artery utilizing the Seldinger technique. The leftcoronary artery was injected utilizing a 6Fr TIG 4.0 catheter. A 6Fr TIG 4.0 catheter was used to inject the right coronary artery. Right heart catheterization was performed utilizing a 5Fr Pulmonary Wedgecatheter. 5,000 units of heparin were administered. A total of 100cc ofOmnipaque were opened, 40cc of Omnipaque were administered and 60cc ofOmnipaque were wasted. Radiation: Fluoro time was 4.4 minutes, dose areaproduct was 40,696 mGYcm2 and air kerma was 572 mGY. The patient received the following medications prior to and duringthe procedure: Aspirin (any) and Unfractionated Heparin (any). Hemodynamics: Right Heart Pressures Hemodynamics: Syst Diast EDP a v m RA 6 4 3 RV 22 5 PA 23 6 12 PCW 11 10 7 Hemodynamic Profile: Profile 1 CO 5.50 CI 2.71 TSR 1,353 SVR 1,309 TPR 175 PVR 73 Technique Estimated Kiara Left Heart Pressures Resting: Syst Diast EDP a v m Ao 140 71 93 Oximetry: Location %Sat Location %Sat Superior Vena Cava 61.0 Main Pulmonary Artery 69.0 Radial artery 98.0 Coronary Angiography: Dominance: Right Left Main The left main was normal. Left Anterior Descending There was mild diffuse disease of the proximal segment of theleft anterior descending artery (LAD). There is a large recurrent apical branch of the LAD, whichsupplies a large potion of the inferior septum. Left Circumflex The left circumflex (LCX) was normal. Right Coronary Artery The right coronary artery (RCA) was normal. RCA is a moderate sized vessel, wtih small PDA. Indication for Selected Procedures: Right Heart catheterization was initiated for Aortic valve disorders (424.1). Vascular Access: Vascular Access Management: Mechanical Compression of the right radial artery access sitewas performed. Conclusions: * Nonobstructive coronary artery disease Complications/Events: The patient had no complications during these procedures. The attending physician was present for the entire procedure. Dr. Nitesh Escobedo M.D. performed the coronary angiography, right heart catheterization and oximetry. Nitesh Escobedo M.D. Electronically Signed by: Nitesh Escobedo M.D. Report Finalized: 06/03/2016 10:04 Report Last Ammended: 09/21/2016 09:37 Nitesh Escobedo MD CARDIAC CATH ORDERAB LES documented in this encounter Visit Diagnoses Diagnosis Aortic valve stenosis, unspecified etiology Aortic valve stenosis, unspecified etiology documented in this encounter Care Teams X Ray Control Equipment Repairer Relationship Specialty Start Date End Date Deborah Quiroga, CHILD CARE DIRECTOR PCP - General Family Medicine 03/24/16 02/04/23 documented as of this encounter
--- OUTSIDE RECORDS SUMMARY | 2024-02-15 14:11 | XMS_ITS | Encounter Summary ---
[place] [address] Care Team Providers Care Concrete Block Maker Name Role Phone Jerel Sofia Garcia APRN Primary Care Provider [phone] Encounter Details Date Type Department Care Team (Late st Contact Info) Description 11/12/2014 8:10 AM EDT - 11/12/2014 11:59 PM EDT Hospital [place] [phone] CLINIC, DR ABE Burrell, Antelmo Porter MD [address] [place] [id number] Discharge Disposition: Home Social History Tobacco Use Types Packs/Day Years Used Date Smoking Tobacco: Never Alcohol Use Standard Drinks/Week Comments No 0 (1 standard drink = 0.6 oz pur e alcohol) none Sex and Gender Information Value Date Recorded Sex Assigned at Not on file Gender Identity Not on file Sexual Orientation Not on file documented as of this encounter Medications at Time of Discharge Medication Sig Dispensed Refills Start Date End Date aspirin 81 mg EC tablet Take 81 mg by mouth daily. carvedilol (COREG) 6.25 mg tablet Take 6.25 mg by mouth Twice daily. 01/17/2014 03/24/2016 spironolactone (ALDACTONE) 25 mg tablet Take 12.5 mg by mouth daily. 01/17/2014 09/25/2016 ramipril (ALTACE) 5 mg capsule Take 5 mg by mouth daily. 12/13/2013 03/24/2016 buPROPion (WELLBUTRIN SR) 150 mg 12 hr tablet Take 150 mg by mouth 2 times daily. 12/13/2013 01/09/2022 fluvastatin (LESCOL) 40 mg capsule Take 40 mg by mouth daily. 12/13/2013 03/24/2016 documented as of this encounter Plan of Treatment Upcoming Encounters Date Type Department Care Team (Late st Contact Info) Description 02/22/2024 4:15 PM EDT Office Visit Dermatology at [place] [address] [place] [address] Marek Bonilla MD [address] [address] 06/05/2024 11:30 AM EST Office Visit [place] [address] Magdalena Peralta MD [facility] [place] [address] documented as of this encounter Procedures Procedure Name Priority Date/Time Associated Diagnosis Comments MRI CARDIAC MORPHOLOGY FUNCTION WWO CONTRAST Routine 11/12/2014 10:35 AM EDT documented in this encounter Results * MRI- Cardiac morph/func with/WO contrast (11/12/2014 10:35 AM EDT) Anatomical Region Laterality Modality Magnetic Resonan ce 11/12/2014 10:3 5 AM EDT Impressions 11/14/2014 1:12 PM EDT IMPRESSION: Stenosis of thickened trileaflet/tricuspid aortic valve, with Y-shaped opening area measuring 1.18cm^2; indexed area 0.58cm^2/m^2. Initial peak velocity-derived pressure gradient 24 mmHg, with repeated measurement obtained 90 mmHg, felt to be spuriously high, possibly in the setting of inadvertent patient Valsalva during breath-holding. Reduced LVEF 44.6%, with mildly hypokinetic apical third of the chamber, except for moderate apical lateral hypokinesis. No delayed enhancement in this area. However, there is a thin stripe of mild mid myocardial enhancement by the mid to basal interventricular septum, which has been reported in idiopathic or other dilated cardiomyopathy. Narrative 11/14/2014 1:12 PM EDT EXAMINATION: MR cardiac for morphology and function without and with contrast, with velocity/flow quantification CLINICAL HISTORY: reassess LV systolic function, globally and segmentally assess for presence of myocardial scar aortic valve function COMPARISON: None. TECHNIQUE: Axial and short axis double inversion recovery without contrast. Short and long axis cine steady-state free precession without contrast. ?? Short and long axis delayed enhancement after intravenous administration of 10 cc of Gadavist. ?? Two-dimensional cine phase contrast. Post-processing performed on an independent computer workstation. FINDINGS: Artifacts Magnetic susceptibility:No magnetic susceptibility artifacts. Breath-holding:Mild respiratory motion artifacts on delayed enhancement imaging. Ectopy/arrhythmia:No significant cardiac motion artifacts. Aliasing:Variable wrap-around artifacts on delayed enhancement, for which some repeated imaging with parameters changes formed. Other: No other artifacts identified. Chambers Left ventricle: Mildly dilated. Other chambers: Normal morphology and structure. Myocardium Non-contrast series: No abnormal myocardial signal on non-contrast imaging. Post-contrast series: Thin stripe of mild mid myocardial enhancement by the mid to basal interventricular septum. No other reproducible delayed enhancement. Wall motion abnormalities: Mild hypokinesis of the apical third of the left ventricle, moderate by the apical lateral wall. Valves: Trileaflet tricuspid aortic valve, with thickened leaflets, with reduced Y-shaped aortic valve opening area, consistent with stenosis, quantification as below. Jet of high velocity/turbulent flow emanating from the aortic valve and extending into the ascending aorta, quantification as below. Aorta: Mid and descending thoracic aorta measures 31 mm in diameter compared to descending thoracic aorta at the same level 21 mm in diameter. Other intrathoracic vascular structures: No significant findings. Pericardium:No pericardial thickening or effusion. Non-cardiovascular structures: No significant findings. QUANTITATIVE DATA: Body surface area: ??2.04m^2 Aortic valve opening area: 1.18cm^2 Indexed valve area:0.58 cm^2/m^2 LEFT VENTRICLE: LV Mass: 99.0 g LV End-Diastolic Volume: 176.9 mL LV End-Systolic Volume: 98.0 mL Stroke Volume: 78.9 mL LV Ejection Fraction: 44.6% Cardiac Output: 5.4 L/min Anteroseptal Wall Thickness: 9.9 mm Posterolateral Wall Thickness: 7.9 mm End-Diastolic Dimension: 5.2 cm End-Systolic Dimension: 3.9 cm RIGHT VENTRICLE: RV End-Diastolic Volume: 153.8 mL RV End-Systolic Volume: 71.6 mL RV Stroke Volume: 82.1 mL RV Ejection Fraction: 53.4% VELOCITY QUANTIFICATION FOR AORTIC VALVE at VENC/velocity sensitivity threshold of 250 cm/sec: Peak velocity: 247 cm/s Peak pressure gradient: 24 mmHg at VENC/velocity sensitivity threshold of 500 cm/sec: Peak velocity: 474 cm/s Peak pressure gradient: 90 mmHg The differences between detected peak velocity at the different sensitivity threshold settings could reflect one of two things. One, aliasing due to initial low velocity sensitivity threshold, but there are no confirmatory imaging features otherwise normally found with aliasing. Although the LVEF is mild reduced in this patient (44.6%), it does not meet threshold for low-gradient due to low EF (< 40%). Thus, the velocity measurement and resulting pressure gradient appear real. Two, the patient may have inadvertently breath-held with Valsalva at the time of the second phase contrast acquisition. Thus, although the true peak velocity is elevated, the >4 cm/s achieved on the second measurement may be spuriously high. Procedure Note Kia Kelly MD - 11/14/2014 EXAMINATION: MR cardiac for morphology and function without and withcontrast, with velocity/flow quantification CLINICAL HISTORY: reassess LV systolic function, globally and segmentallyassess for presence of myocardial scar aortic valve function COMPARISON: None. TECHNIQUE: Axial and short axis double inversion recovery without contrast. Short and long axis cine steady-state free precession without contrast. Short and long axis delayed enhancement after intravenous administrationof 10 cc of Gadavist. Two-dimensional cine phase contrast. Post-processing performed on an independent computer workstation. FINDINGS: Artifacts Magnetic susceptibility:No magnetic susceptibility artifacts. Breath-holding:Mild respiratory motion artifacts on delayed enhancementimaging. Ectopy/arrhythmia:No significant cardiac motion artifacts. Aliasing:Variable wrap-around artifacts on delayed enhancement, for whichsome repeated imaging with parameters changes formed. Other: No other artifacts identified. Chambers Left ventricle: Mildly dilated. Other chambers: Normal morphology and structure. Myocardium Non-contrast series: No abnormal myocardial signal on non-contrastimaging. Post-contrast series: Thin stripe of mild mid myocardial enhancement bythe mid to basal interventricular septum. No other reproducible delayedenhancement. Wall motion abnormalities: Mild hypokinesis of the apical third of theleft ventricle, moderate by the apical lateral wall. Valves: Trileaflet tricuspid aortic valve, with thickened leaflets, withreduced Y-shaped aortic valve opening area, consistent with stenosis,quantification as below. Jet of high velocity/turbulent flow emanating from the aortic valveand extending into the ascending aorta, quantification as below. Aorta: Mid and descending thoracic aorta measures 31 mm in diametercompared to descending thoracic aorta at the same level 21 mm in diameter. Other intrathoracic vascular structures: No significant findings. Pericardium:No pericardial thickening or effusion. Non-cardiovascular structures: No significant findings. QUANTITATIVE DATA: Body surface area: 2.04m^2 Aortic valve opening area: 1.18cm^2 Indexed valve area:0.58 cm^2/m^2 LEFT VENTRICLE: LV Mass: 99.0 g LV End-Diastolic Volume: 176.9 mL LV End-Systolic Volume: 98.0 mL Stroke Volume: 78.9 mL LV Ejection Fraction: 44.6% Cardiac Output: 5.4 L/min Anteroseptal Wall Thickness: 9.9 mm Posterolateral Wall Thickness: 7.9 mm End-Diastolic Dimension: 5.2 cm End-Systolic Dimension: 3.9 cm RIGHT VENTRICLE: RV End-Diastolic Volume: 153.8 mL RV End-Systolic Volume: 71.6 mL RV Stroke Volume: 82.1 mL RV Ejection Fraction: 53.4% VELOCITY QUANTIFICATION FOR AORTIC VALVE at VENC/velocity sensitivity threshold of 250 cm/sec: Peak velocity: 247 cm/s Peak pressure gradient: 24 mmHg at VENC/velocity sensitivity threshold of 500 cm/sec: Peak velocity: 474 cm/s Peak pressure gradient: 90 mmHg The differences between detected peak velocity at the differentsensitivity threshold settings could reflect one of two things. One, aliasing due to initial low velocity sensitivity threshold, but thereare no confirmatory imaging features otherwise normally found with aliasing. Although the LVEF is mild reduced in this patient (44.6%), it does notmeet threshold for low-gradient due to low EF (< 40%). Thus, the velocity measurement and resulting pressure gradient appear real. Two, the patient may have inadvertently breath-held with Valsalva at thetime of the second phase contrast acquisition. Thus, although the true peakvelocity is elevated, the >4 cm/s achieved on the second measurement may be spuriouslyhigh. IMPRESSION IMPRESSION: Stenosis of thickened trileaflet/tricuspid aortic valve, with Y-shapedopening area measuring 1.18cm^2; indexed area 0.58cm^2/m^2. Initial peak velocity-derived pressure gradient 24 mmHg, with repeated measurementobtained 90 mmHg, felt to be spuriously high, possibly in the setting ofinadvertent patient Valsalva during breath-holding. Reduced LVEF 44.6%, with mildly hypokinetic apical third of the chamber,except for moderate apical lateral hypokinesis. No delayed enhancement in thisarea. However, there is a thin stripe of mild mid myocardial enhancement by themid to basal interventricular septum, which has been reported in idiopathic orother dilated cardiomyopathy. Antelmo Burrell MD IMG MRI ORDERABLES documented in this encounter Visit Diagnoses Not on filedocumented in this encounter Administered Medications Inactive Administered Medications - up to 3 most recent administrations Medication Order MAR Action Action Date Dose Rate Site gadobutrol (GADAVIST) 1 mMol/mL injection 9.53 mL 9.53 mL (0.1 mL/kg/dose ? 95.3 kg Order-specific weight), Intravenous, ONCE PRN, 1 dose, Starting on Wed11/12/14 at 0935, Until Wed11/12/14 at 1007, Per Protocol, Routine Given 11/12/2014 10:07 AM EDT 10 mLs documented in this encounter Care Teams Concrete Block Maker Relationship Specialty Start Date End Date Sofia Beltrán APRN [address] [place] [address] PCP - General 11/12/14 03/23/16 documented as of this encounter
--- OUTSIDE RECORDS SUMMARY | 2024-02-15 14:11 | XMS_ITS | Encounter Summary ---
Author Organization [facility] [place] [address] Care Team Providers Care Supervisor Speech Name Role Phone Deborah Quiroga APRN Primary Care Provider [phone] Encounter Details Date Type Department Care Team (Late st Contact Info) Description 06/16/2016 Orders Only Hematology [place] [phone] Nitesh Pina Jr., MD [facility] HEMATOLOGY/[place] [address] Cyclical neutropenia Social History Tobacco Use Types Packs/Day [...] 4:15 PM EDT Office Visit Dermatology at [address] [facility] [place] [phone] Marek Bonilla MD [address] [facility] [place] [address] 06/05/2024 11:30 AM EST Office [place] [phone] Magdalena Peralta MD [facility] [place] [address] documented as of this encounter Visit Diagnoses Diagnosis Cyclical neutropenia Cyclic neutropenia documented in this encounter Care Teams Supervisor Speech Relationship Specialty Start Date End Date Deborah Quiroga APRN PCP - General Family Medicine 03/24/16 02/04/23 documented as of this encounter
--- OUTSIDE RECORDS SUMMARY | 2024-02-15 14:11 | XMS_ITS | Encounter Summary ---
Author Organization [facility] Address [facility] Erika becerra [place] [id number] Care Team Providers Care Hospice Care Consultant Name Role Phone Ashley Quirogan Cornelius ANURAG Primary Care Provider [phone] Reason for Visit * Reason Comments Schedule Office Case * Consultation (Routine) - Closed Specialty Diagnoses / Procedures Referred By Contac t Referred To Contact Hematology and Oncology Diagnoses Leukopenia Neutropenia LEUKOPENIA W/NEUTROPENIA Procedures TC PEGFILGRASTIM, 6MG, INJECTION LEUKOPENIA W/NEUTROPENIA Alirio Esparza MD [facility] CARDIOTHORACIC [place] [address] Mario Alberto Ramos Jr., MD [facility] HEMATOLOGY/[place] [address] Referral ID Status Reason Start Date Expiration Date V isits Requested Visits Authorized [id number] Closed Consult, Test & Treat 07/17/2016 07/17/2017 1 1 Encounter Details Date Type Department Care Team (Late st Contact Info) Description 06/09/2016 3:00 PM EST Office Visit Hematology [place] [phone] Mario Alberto Ramos Jr., MD [facility] HEMATOLOGY/[place] [address] Cyclical neutropenia Social History Tobacco Use Types [...] Sign Reading Time Taken Comments Blood Pressure 121/61 06/09/2016 2:46 PM EST Pulse 90 06/09/2016 2:46 PM EST Temperature 37.1 ??C (98.8 ??F) 06/09/2016 2:46 PM ES T Respiratory Rate 18 06/09/2016 2:46 PM EST Oxygen Saturation 99% 06/09/2016 2:46 PM EST Inhaled Oxygen Concentration - - Weight 95.5 kg (210 lb 9.6 oz) 06/09/2016 2:46 P M EST Height 153.7 cm (5' 0.51) 06/09/2016 2:46 PM ES T Body Mass Index 40.44 06/09/2016 2:46 PM EST documented in this encounter Progress Notes * Mario Alberto Ramos MD - 06/09/2016 3:00 PM EST Hematology Outpatient Clinic [facility] Hematology Outpatient Consult Note CC: [...] has been followed by CT Surgery (Dr. Epsarza) and Cardiology (Dr. Escobedo) over the past [...] abdominal pain, reflux, anorexia, nausea or vomiting. Per review of the record, the patient has manifested a gradually progressive leukopenia with associated neutropenia over the past 2-3 years, as outlined below: Mar 2013: WBC 2.27 AMC 1.09 ALC 0.December: WBC 2.11 Past Medical/Surgical History: 1. Leukopenia -element of neutropenia, as noted above 2. Aortic Stenosis -severe -AVR surgery pending 3. Hypercholesterolemia 4. Depression 5. Hypertension 6. Obesity Social History: TOB - neg ETOH - neg Family History: No known primary marrow disorders [...] daily Allergies: Reviewed in eD-H Review of Systems: General: Denies fever, chills, nightsweats. No recent weight changes; overall feels well; + some malaise Eyes: Denies pain, vision changes ENT: Denies vertigo, hearing changes, epistaxis, mouth pain or lesions Cardiovascular: Denies chest pain, pressure or palpitations; no presyncopal symptoms Respiratory: Denies resting SOB, orthopnea, cough; + exertional dyspnea GI: Denies dysphagia, nausea, vomiting, diarrhea, melena or hematechezia; no early satiety : Denies dysuria, urgency Musculoskeletal: Denies arthralgia, myalgia Endocrine: Denies polydipsia, polyuria, cold or heat intolerance Neuro: Denies numbness or tingling, weakness Hem/Lymph: Denies adenopathy, nelsy bleeding Skin: Denies rash or concerning lesions Other systems reviewed and negative Physical Exam: Vital signs - T 37.1 BP 121/61 HR 90 RR 18 Sa02=99% (RA) Gen: Well-appearing woman, conversant and in no acute distress. HEENT: Sclerae anicteric; no oropharyngeal lesions. Neck: Supple; no palpable thyromegaly. Lungs: Clear to auscultation. Cardiovascular: Normal rate and regular rhythm; grade III/ HS murmur. Abd: Benign, without palpable hepatosplenomegaly. Lymphatics: No palpable lymphadenopathy. Skin: No jaundice, rash, ecchymoses or petechiae. Neuro: Grossly intact. Extremities: No edema. Labs: Ref. Range 06/09/2016 16:53 WBC Latest Ref Range: 4.0 - 9.5 x10(3)/mcL 1.7 (CRIT) RBC Latest Ref Range: 4.00 - 5.21 x10(6)/mcL 3.92 (L) Hemoglobin Latest Ref Range: 11.7 - 15.5 gm/dL 12.4 Hematocrit Latest Ref Range: 35.7 - 45.8 % 36.7 MCV Latest Ref Range: 82.6 - 94.4 fL 93.6 MCH Latest Ref Range: 27.1 - 32.0 pg 31.6 MCHC Latest Ref Range: 31.7 - 35.0 gm/dL 33.8 RDWSD Latest Ref Range: 37.0 - 46.0 fL 39.8 RDWCV Latest Ref Range: 11.5 - 14.1 % 11.8 Platelets Latest Ref Range: 145 - 357 x10(3)/mcL 234 MPV Latest Ref Range: 7.6 - 12.9 fL 8.6 nRBC % Auto Latest Units: % 0.0 nRBC Abs Auto Latest Ref Range: 0.000 - 0.000 x10(3)/mcL 0.000 Neutr Abs (ANC) Latest Ref Range: 1.70 - 6.10 x10(3)/mcL 0.48 (CRIT) Neutrophils % Latest Units: % 27.7 Immature Gran % Latest Units: % 0.00 Lymphocytes % Latest Units: % 57.2 Monocytes % Latest Units: % 13.3 Eosinophils % Latest Units: % 0.6 Basophils % Latest Units: % 1.2 Amanda Gran Abs Latest Ref Range: 0.00 - 0.04 x10(3)/mcL 0.00 Lymphocytes Abs Latest Ref Range: 0.9 - 3.2 x10(3)/mcL 1.0 Monocyte Abs Latest Ref Range: 0.3 - 0.9 x10(3)/mcL 0.2 (L) Eosinophils Abs Latest Ref Range: 0.0 - 0.4 x10(3)/mcL 0.0 Basophils Abs Latest Ref Range: 0.0 - 0.1 x10(3)/mcL 0.0 Plat Estimate Unknown Normal RBC Morphology Unknown Normal Immunophenotyping Flow Unknown See Comment Flow Cytometry Report Unknown [id number] ... HematoPathology: Flow Cytometry DIAGNOSIS 1. No increased or abnormal immunophenotype T/NK/LGL or monoclonal B-cell ?populations identified. 2. No increased blast population present (see Discussion). Electronically signed by: ??Tod CULP, Andreina Arriaga Verified: ??06/10/2016 ?Hematopathologist DISCUSSION The majority of lymphocytes in this peripheral blood specimen are CD3+ T-cells ??(82% of lymphocytes; 40% of total cells) with an appropriate mixture of mature ??CD4+ and CD8+ forms (CD4:CD8 ratio = 2.5). ??There is no aberrant antigen loss or ??expression on T-cells and no increased NK or LGL populations are present. A small ??CD4+CD8+ population is detected (2%), which is a normal finding in peripheral blood ??of healthy subjects, though small increases in CD4+CD8+ ?double positive cells ??also may be seen reactive conditions, including viral infections or autoimmune ??disorders. ??CD3-CD56+ NK cells constitute 7% of lymphocytes (3% of total cells), and ??CD3+CD57+ cytotoxic T-cells comprise 1% of lymphocytes ( ?? <<1% of total cells) and do ??not show aberrant expression of CD16. B-cells account for 11% of lymphocytes (5% of ??total cells) and express surface light chains in a polytypic pattern (kappa:lambda ??1.1). There is no increased blast population identified by CD45/side scatter ??gating. In summary, there is no immmunophenotypic evidence for involvement of ??the peripheral blood by a monoclonal B-cell or T/NK/LGL-cell lymphoproliferative ??neoplasm and no evidence for acute leukemia. Flow cytometry will not routinely ??identify monoclonal T-cell populations, however, thus correlation with the results ??of clinical, morphologic and molecular studies will be required for complete ??diagnostic evaluation. Imaging: N/A Assessment: 60 year-old generally active, fairly healthy woman with known valvular heart disease and plans for upcoming AVR surgery to address critical , now with incidentally noted leukopenia and associated neutropenia, referred for definitive work-up. Of note, while the patient has not noted any dramatic change in her state of health over the past 3 years, review of her chart does demonstratea mild, progressive leukopenia and neutropenia since 2012. This raises the question of an evolving primary marrow disorder such as myelodysplastic syndrome (MDS), an issue that will need to be clarified via bone marrow biopsy. Although only one cell line is down, the critical nature of her ANC warrants a diagnostic marrow biopsy within the next several days. This will also impact on her upcoming surgery. I reviewed these issues with Purnima in the office, including the details, potential risks and benefits of the bone marrow biopsy procedure, and she is amenable to proceeding. Will also pursue a CT scan of chest, abdomen and pelvis in this context, and she wishes to have this done locally. I will plan to see Purnima back in the office 5-7 days after her marrow biopsy for review and discussion of these findings. Allquestions were addressed, and the patient voiced understanding and agreement with this plan. Recommendations/Plan: 1. Lab work-up - unrevealing. 2. Local C/A/P CT scan to assess for occult adenopathy - ordered. 3. Marrow biopsy anticipated, based on critical ANC. 4. Neutropenic precautions reviewed. 5. RTC after the above for review and discussion of findings. Mario Alberto Ramos Jr., M.D. Section of Hematology/Oncology CC: Dr. Hahn (PCP) Dr. Esparza (CT Surgery) Dr. Escobedo (Cardiology) documented in this encounter Miscellaneous Notes * Addendum Note - Mario Alberto Ramos MD - 06/18/2016 3:09 PM ESTAddended by: MARIO ALBERTO RAMOS on: 06/18/2016 03:09 PM Modules accepted: Orders, SmartSet documented in this encounter Plan of Treatment Upcoming Encounters Date Type Department Care Team (Late st Contact Info) Description 02/22/2024 4:15 PM EDT Office Visit Dermatology at [address] [place] [address] Marek Bonilla MD [address] [place] [address] 06/05/2024 11:30 AM EST Office [facility] [place] [address] Magdalena Peralta MD [facility] [place] [address] documented as of this encounter Procedures Procedure Name Priority Date/Time Associated Diagnosis Comments IMMUNOPHENOTYPING FLOW CYTOMETRY Routine 06/09/2016 4:53 PM EST Cyclical neutropenia FLOW CYTOMETRY REPORT Routine 06/09/2016 4:53 PM EST SCAN, PERIPHERAL BLOOD STAT 6 4:53 PM EST HEMOGRAM STAT 06/09/2016 4:53 PM EST Cyclical neutropenia DIFFERENTIAL, AUTOMATED STAT 06/09/20 16 4:53 PM EST Cyclical neutropenia CBC (WITH DIFF) STAT 06/09/2016 4:53 PM EST Cyclical neutropenia documented in this encounter Results * Flow Cytometry Report (06/09/2016 4:53 PM EST) Flow Cytometry Report [id number] ?Location: 3K The signing pathologist has (i) examined the relevant preparation(s) for the specimen(s) and (ii) rendered or confirmed the diagnosis(es). . ?Flow Cytometry DIAGNOSIS 1. ??No increased or abnormal immunophenotype T/NK/LGL or monoclonal B-cell ?? populations identified. 2. No increased blast population present (see Discussion). Electronically signed by: ??Tod CULP, Andreina GarciaKaylie Verified: ??06/10/2016 ?Hematopathologist DISCUSSION The majority of lymphocytes in this peripheral blood specimen are CD3+ T-cells (82% of lymphocytes; 40% of total cells) with an appropriate mixture of mature CD4+ and CD8+ forms (CD4:CD8 ratio = 2.5). ??There is no aberrant antigen loss or expression on T-cells and no increased NK or LGL populations are present. A small CD4+CD8+ population is detected (2%), which is a normal finding in peripheral blood of healthy subjects, though small increases in CD4+CD8+ ?double positive cells also may be seen reactive conditions, including viral infections or autoimmune disorders. ??CD3-CD56+ NK cells constitute 7% of lymphocytes (3% of total cells), and CD3+CD57+ cytotoxic T-cells comprise 1% of lymphocytes ( ?? <<1% of total cells) and do not show aberrant expression of CD16. B-cells account for 11% of lymphocytes (5% of total cells) and express surface light chains in a polytypic pattern (kappa:lambda 1.1). There is no increased blast population identified by CD45/side scatter gating. In summary, there is no immmunophenotypic evidence for involvement of the peripheral blood by a monoclonal B-cell or T/NK/LGL-cell lymphoproliferative neoplasm and no evidence for acute leukemia. Flow cytometry will not routinely identify monoclonal T-cell populations, however, thus correlation with the results of clinical, morphologic and molecular studies will be required for complete diagnostic evaluation. Flow analysis is an ancillary study. A definite diagnosis requires correlation with the morphologic features of this process and if necessary, correlation with other ancillary studies like immunohistochemistry, enzyme cytochemistry and/or cyto/ molecular genetics. This test was developed and its performance characteristics determined by the Clinical Flow Cytometry Laboratory at [facility]. It has not been cleared or approved by the U.S. Food and Drug Administration. ??The FDA has determined that such clearance or approval is not necessary. ??This test is used for clinical purposes. ??It should not be regarded as investigational or for research. This laboratory is certified under the Clinical Laboratory Improvement Act of 1988 (CLIA) as qualified to perform high complexity clinical laboratory testing. SPECIMEN PROCESSING [id number] Cells for immunophenotypic analysis were derived from peripheral blood. ??CD45 vs side scatter gating was utilized to identify a lymphoid analysis region that comprises approximately 49-51% of all cells. The following markers were assessed: CD2, CD3, CD4, CD5, CD7, CD8, CD10, CD16, CD19, CD45, CD56, CD57, kappa light chain, and lambda light chain. CLINICAL INFORMATION 60 yo female with neutropenia. LGL panel requested. [facility] 06/09/2016 4:53 PM EST Mario Alberto Ramos Jr., MD PATHOLOGY/CYTOLOGY O RDERABLES Performing Organization Address City/[facility]/ZIP Co de Phone Number [facility] [place] [address] * Scan, Peripheral Blood (06/09/2016 4:53 PM EST) [facility] Plat Estimate Normal [facility] RBC Morphology Normal [facility] Blood specimen (specimen) 06/09/2016 4:53 PM EST 06/09/2016 5:00 PM EST Narrative Resulting Agency Comment Spec In Lab Mario Alberto Ramos Jr., MD HEMATOLOGY ORDERABLE S Performing Organization Address [facility] Co de Phone Number [facility] [place] [address] * (ABNORMAL) Differential, Automated (06/09/2016 4:53 PM EST) [facility] Neutrophils % 27.7 % [facility] Neutr Abs (ANC) 0.48(Crit ical) 1.70 - 6.10 x10(3)/mc L [facility] Comment: Matches Previous Results.. This result has been called to NOT CALLED by Jesusita Arugeta on 06 09 2016 at 1817, and has not been read back. MATCHES PREVIOUS RESULTS Lymphocytes % 57.2 % [facility] Lymphocytes Abs 1.0 0.9 - 3.2 x10(3)/mc L [facility] Monocytes % 13.3 % [facility] Monocyte Abs 0.2(L) 0.3 - 0.9 x10(3)/[facility] Eosinophils % 0.6 % [facility] Eosinophils Abs 0.0 0.0 - 0.4 x10(3)/[facility] Basophils % 1.2 % [facility] Basophils Abs 0.0 0.0 - 0.1 x10(3)/[facility] Immature Gran % 0.00 % [facility] Comment: Immature granulocytes(IG's)percentage and absolute count will include metamyelocytes, myelocytes, and promyelocytes. Blood smears from CBCs yielding IG's will be scanned manually for concordance. If this scan disagrees with the automated IG or if promyelocytes are noted, a manual differential will be performed. Amanda Gran Abs 0.00 0.00 - 0.04 x10(3)/[facility] Blood specimen (specimen) 06/09/2016 4:53 PM EST 06/09/2016 5:00 PM EST Narrative Resulting Agency Comment Spec In Lab Mario Alberto Ramos Jr., MD HEMATOLOGY ORDERABLE S Performing Organization Address City/State/[facility] Co de Phone Number [facility] [place] [address] * (ABNORMAL) Hemogram (06/09/2016 4:53 PM EST) WBC 1.7(Critic al) 4.0 - 9.5 x10(3)/[facility] RBC 3.92(L) 4.00 - 5.21 x10(6)/[facility] Hemoglobin 12.4 11.7 - 15.5 gm/dL [facility] Hematocrit 36.7 35.7 - 45.8 % [facility] MCV 93.6 82.6 - 94.4 fL [facility] MCH 31.6 27.1 - 32.0 pg [facility] MCHC 33.8 31.7 - 35.0 gm/dL [facility] Platelets 234 145 - 357 x10(3)/[facility] RDWSD 39.8 37.0 - 46.0 [facility] RDWCV 11.8 11.5 - 14.1 % [facility] MPV 8.6 7.6 - 12.9 [facility] nRBC % Auto 0.0 % [facility] nRBC Abs Auto 0.000 0.000 - 0.000 x10(3)/[facility] Blood specimen (specimen) 06/09/2016 4:53 PM EST 06/09/2016 5:00 PM EST Narrative Resulting Agency Comment Spec In Lab Mario Alberto Ramos Jr., MD HEMATOLOGY ORDERABLE S Performing Organization Address City/[facility]/ZIP Co de Phone Number [place] [phone] * Immunophenotyping Flow Cytometry (06/09/2016 4:53 PM EST) Immunophenotyping Flow See Comment [facility] Comment: When completed by the Pathologist, the Flow Cytometry Report ([id number]) will display under the Pathology Results section within [facility]. Specimen of unknown material (specimen) 06/09/2016 4:53 PM EST 06/09/2016 5:00 PM EST Narrative Resulting Agency Comment Spec In Lab Mario Alberto Ramos Jr., MD HEMATOLOGY ORDERABLE S [facility] [place] [address] documented in this encounter Visit Diagnoses Diagnosis Cyclical neutropenia Cyclic neutropenia documented in this encounter Care Teams Hospice Care Consultant Relationship Specialty Start Date End Date Deborah Quiroga APRN PCP - General Family Medicine 03/24/16 02/04/23 documented as of this encounter
--- OUTSIDE RECORDS SUMMARY | 2024-02-15 14:11 | XMS_ITS | Encounter Summary ---
[facility] Organization [facility] [place] [address] Care Team Providers Care Cryptographic Technician Name Role Phone EitanMagnusDanni ANURAG Primary Care Provider Encounter Details Date Type Department Care Team (Late st Contact Info) Description 01/23/2014 9:25 AM EDT - 01/23/2014 10:25 AM EDT [place] [address] Alan Jacobson MD [facility] [place] [address] CARDIAC CATHETERIZATION Social History Tobacco Use Types [...] Sign Reading Time Taken Comments Blood Pressure 129/73 01/23/2014 8:25 AM EDT Pulse 93 01/23/2014 8:25 AM EDT Temperature 37 ??C (98.6 ??F) 01/23/2014 8:25 AM EDT Respiratory Rate 16 01/23/2014 8:25 AM EDT Oxygen Saturation 99% 01/23/2014 8:25 AM EDT Inhaled Oxygen Concentration - - Weight 93.2 kg (205 lb 6.4 oz) 01/23/2014 8:24 A M EDT Height 157.5 cm (5' 2) 01/23/2014 8:24 AM EDT Body Mass Index 37.57 01/23/2014 8:24 AM EDT documented in this encounter Discharge Instructions * Discharge Instructions* Meredith Bowling RN - 01/23/2014 2:03 PM EDT Activity If you are discharged the same day as your procedure, do not drive yourself home. Arrange to have another person drive. You may walk around when you get home, but keep your activity at a minimum until the morning. Do not bend over, strain, or lift heavy objects for 24 hours after the procedure. Do not participate in active sports for 48 hours. You may engage in sexual activity after 48 hours. These restrictions will not apply if the catheter was placed in a blood vessel in your arm. Catheter Insertion Area Care Take the band-aid off the catheter insertion area the morning following the procedure. You may takea shower if you wish. Wash the area with soap and water. Look for signs of infection over the next several days. A little spot of blood at the catheter insertion area is not unusual. A bruise or small lump under the skin is normal; they generally disappear in 3-4 days. For the first several days at home if you cough or sneeze, hold your groin to help prevent bleeding. Expect some mild tenderness over the area where the catheter was inserted. You will notice this after the local anesthetic (numbing medicine) wears off. This should improve during the 24-48 hours after the procedure. Take tylenol if needed. Contact your doctor if the discomfort worsens. Problems to Watch For If there is bright red blood flowing from the catheter insertion area: *stop what you are doing and lie down *Hold pressure steadily on the area for 15 minutes *Call for Help *If the bleeding does not stop in 15 minutes call 911 for an ambulance. If there is swelling with black and blue color at the catheter insertion area, there may be bleeding inside. Contact the doctor if there is any increase in size. Look at the insertion site for the first few days at home. Signs of infection are: *redness *Swelling *Yellow, white, green or brown foul smelling drainage. *increased soreness If you think there is an infection, take your temperature. Then call your doctor. The limb on the side where you had your catheterization should look and feel normal in its color, sensation, and temperature. If your leg becomes cool, pale, blue or changing color with numbness and tingling, contact your doctor. If you feel faint or dizzy, lie down with your feet elevated. Have someone call the doctor. If you are alert, drink fluids. How to Deal with Chest pain If you had only the cardiac catheterization, treat any angina or chest discomfort as instructed. Stop what you are doing, and sit or lie down. If prescribed, take nitroglycerin under your tongue. If the angina isn't relieved, take another nitroglycerine in 5 minutes. After another 5 minutes, a third nitroglycerine may be taken. If the angina isn't improved you should call for an ambulance to bring you to the nearest hospital emergency room. If your angina is more frequent or more sever than before, contact your doctor. We usually would not expect to have angina after an angioplasty. If you do get angina, treat it as you did before but also contact your doctor. Return to Work The doctor will usually have told you when to return to work. If you do not perform heavy physical labor, most people can return to work in a few days. Diet Follow your previous diet unless otherwise instructed. Cardiac Risk Factors If you have coronary artery disease, it is important that you help control it by reducing your cardiac risk factors. If you smoke, we urge you to stop now. If you think this is going to be a problem,let us know so that we may help you. We have dieticians who can help you learn about low fat, low cholesterol diet. Cardiac rehabilitation programs can help you set up a regular exercise program. Work with your doctor if you have high blood pressure or sugar diabetes to keep these under control. Medications ____Take your usual medications ____Medication changes: If you are taking medicines prescribed by your doctor, do not take any [id number] medicines or herbal preparations without first discussing this with your doctor or pharmacist. There is the possibility of side effect and interactions when these are combined. Follow up Care Who to Call with Questions or Problems If there are any questions or problems that you think might be related to your cardiac cath or angioplasty, contact the roller repairer manager relationship by calling [facility] at . documented in this encounter Medications at Time [...] 12/13/2013 03/24/2016 documented as of this encounter Progress Notes * Devi Pond RN - 01/23/2014 3:53 PM EDT 1500 Echocardiogram is done at the bedside. Dr Jacobson is notified. documented in this encounter H&P Notes * Aleksandr Majano - 01/23/2014 10:38 AM EDT Pre-Cardiac Cath 24 hour H&P Update Please see Dr. Burrell Cardiology note from 01/17/14 for details. Briefly, 58 y/o with severe , CP and cardiomyopathy. Non-diabetic, non-smoker, +ve HTN, +ve HPL, +ve FH of (?bicuspid AV). Labs reviewed, consent obtained. Will proceed with procedure as planned. documented in this encounter Miscellaneous Notes * Miscellaneous - Provider, Scanning - 01/23/2014 9:32 PM EDT * Miscellaneous - Provider, Scanning - 01/23/2014 2:39 PM EDT documented in this encounter Plan of Treatment Upcoming Encounters Date Type Department Care Team (Late st Contact Info) Description 02/22/2024 4:15 PM EDT Office Visit Dermatology at [place] [address] [place] [address] Marek Bonilla MD [address] [place] [address] 06/05/2024 11:30 AM EST Office [place] [address] Magdalena Peralta MD [facility] [place] [address] documented as of this encounter Procedures Procedure Name Priority Date/Time Associated Diagnosis Comments ECHOCARDIOGRAM TRANSTHORACIC Routine 01/23/2014 3:17 PM EDT SOB (shortness of breath) documented in this encounter Results * Echocardiogram Transthoracic(Leb) (01/23/2014 3:17 PM EDT) Pathologist Liquid Scenarios EF 50 HEARTLAB SYSTEM Anatomical Region Laterality Modality Other 01/23/2014 Narrative 01/23/2014 4:35 PM EDT Procedure: ? Transthoracic Echocardiogram Patient: ? ANDREW ECHOLS M ?(Age): 1955(58) Med Rec#: ?[id number] ? Sex: ?F ? Site Loc: ?[facility] [place] ? Ht / Wt: ??158(cm)/93(kg) Pt. Loc: ? Adult Floor ?BSA: ?2.02 Study Date: ?01/23/2014 ? Pt. Type: Inpatient Tape: ? Referring: Lee Kincaid ([id number]) Referring: ANNALISA Urology Teacher: Miguel Beverly Diagnosis:CPT Code(s): ??Echo Full (51442), ??Spectral Doppler (10772), Color Doppler (32002), Indication(s): ??Aortic stenosis Rhythm: Sinus HR ?BP ?122/63 ?? SUMMARY: 1. The left ventricle is normal in size with mildly reduced systolic function. ??The estimated LVEF is 50% with mild global hypokinesis and no obvious regional wall motion abnormalities. ?? 2. The aortic valve is trileaflet with mild thickening of all leaflets and mildly reduced excursion. ??There is moderate aortic stenosis with an estimated GEOVANNA of 1.1 cm2 and a peak/mean gradient of 25/15 mmHg (DOI = 0.35). ??There is a trace of aortic regurgitation present. ?? 3. Other details as noted below. ?? 4. IMPRESSION: Moderate with a mildly reduced LVEF. ??Although the LVEF is not completely normal, the case does not qualify as a low-gradient due to low EF (EF < 40% required). ??Some of the difficulty of this case is obtaining a reliable velocity in the LVOT; however, the peak velocity was only 2.5 m/s. ??A transesophageal echo could be considered for direct planimetry if clinically indicated. FINDINGS: Study Quality ?Adequate Left Ventricle ?Global left ventricular systolic function is mildly reduced. Ejection fraction is estimated to be 50%. ?There are no left ventricular segmental wall motion abnormalities. ?The left ventricular diastolic filling pattern is consistent with impaired LV relaxation. ?Doppler assessment is consistent with normal left sided filling pressure. ?The ??basal anteroseptal, basal anterior, basal anterolateral, basal inferolateral, basal inferior, basal inferoseptal, mid anteroseptal, mid anterior, mid anterolateral, mid inferolateral, mid inferior, mid inferoseptal, apical septal, apical anterior, apical lateral and apical inferior wall segments are hypokinetic. Right Ventricle ?Right ventricular chamber size, wall thickness, and systolic function are within normal limits. Aortic Valve ?The aortic valve is tricuspid. ?The aortic valve leaflets are moderately thickened. ?The peak instantaneous trans-valvular gradient across ??the aortic valve is 25 mmHg. ?The mean trans-valvular gradient across ??the aortic valve is 15 mmHg. ?The calculated aortic valve area is 1.11 cm2. ?There is mild aortic valve stenosis. ?There is a trace of aortic regurgitation present. Mitral Valve ?The mitral valve appears normal in structure and function. ?There is trace mitral regurgitation present. Tricuspid Valve ?The tricuspid valve appears normal in structure and function. ?There is trace tricuspid regurgitation present. Pulmonic Valve ?The pulmonic valve appears normal in structure and function. Pericardium ?The pericardium appears normal and there is no evidence of a pericardial effusion. Aorta ?The aortic root is normal in size. ?The ascending aorta is normal in size. Pulmonary Artery ?The main pulmonary artery appears normal. Venous ?The inferior vena cava appears normal in size. ?There is a greater than 50% respiratory change in the inferior vena cava dimension. Misc ?See remainder of report for additional findings. ?Two-dimensional echo, spectral Doppler and color Doppler performed. Wall Motion: Segment Name ?Rest ? Base-Anteroseptal ?? Hypokinetic ? Base-Anterior ? Hypokinetic ? Base-Anterolateral ??Hypokinetic ? Base-Posterolateral Hypokinetic ? Base-Inferior ? Hypokinetic ? Base-Inferoseptal ?? Hypokinetic ? Mid-Anteroseptal ?Hypokinetic ? Mid-Anterior ?Hypokinetic ? Mid-Anterolateral ?? Hypokinetic ? Mid-Posterolateral ??Hypokinetic ? Mid-Inferior ?Hypokinetic ? Mid-Inferoseptal ?Hypokinetic ? [place]-Septal ? Hypokinetic ? [place]-Anterior ? Hypokinetic ? [place]-Lateral ?Hypokinetic ? [place]-Inferior ? Hypokinetic ? [place]-Tip ?Hypokinetic ? Chambers ?Value ?Units (Range) ? IVSd 2D ? 1.1 ?cm ? LVIDd 2D ?4.4 ?cm ? PWd 2D ?1.1 ?cm ? LVIDs 2D ?3.4 ?cm ? LVFS 2D ? 22 ? % ? Ao root ? 2.8 ?cm (2.1 to 3.6) ? Asc Ao ?2.8 ?cm (2 to 3.5) ? Aortic Valve ?Value ?Units (Range) ? AV grad P ? 25 ? mmHg ? AV grad M ? 15 ? mmHg ? GEOVANNA(wero) ?1.1 ?cm2 (2 to 4) ? DOI ? 0.35 ? AV pk wero ? 2.5 ?m/sec (1 to 1.7) ? LVOT pk wero ? 0.89 ? m/sec (0.7 to 1.1) ?? LVOT D ?2 ?cm ? Mitral Valve ?Value ?Units (Range) ? E peak ?0.5 ?m/sec ? E/A ratio ? 0.6 ?ratio ? MVDT ?173 ?msec ? E1 ?0.08 ? m/sec ? E/E1 ?6.3 ?ratio ? This report has been electronically signed by: Lee Kincaid MD ? 01/23/2014 16:34:37 Images reviewed and interpretation verified [facility] Procedure Note Lee Kincaid MD - 01/23/2014 Procedure: Transthoracic Echocardiogram Patient: ANDREW Mejias (Age): 1955(58) Med Rec#: [id number] Sex: F Site Loc: [facility] [place] Ht / Wt: 158(cm)/93(kg) Pt. Loc: Adult Floor BSA: 2.02 Study Date: 01/23/2014 Pt. Type: Inpatient Tape: Referring: Lee Kincaid ([id number]) Referring: ANNALISA Urology Teacher: Miguel Beverly Diagnosis:CPT Code(s): Echo Full (67734), Spectral Doppler (59003), Color Doppler (79608), Indication(s): Aortic stenosis Rhythm: Sinus HR BP 122/63 SUMMARY: 1. The left ventricle is normal in size with mildly reduced systolic function. The estimated LVEF is 50% with mild global hypokinesis and no obvious regional wall motion abnormalities. 2. The aortic valve is trileaflet with mild thickening of all leaflets and mildly reduced excursion. There is moderate aortic stenosis with an estimated GEOVANNA of 1.1 cm2 and a peak/mean gradient of 25/15 mmHg (DOI = 0.35). There is a trace of aortic regurgitation present. 3. Other details as noted below. 4. IMPRESSION: Moderate with a mildly reduced LVEF. Although the LVEF is not completely normal, the case does not qualify as a low-gradient due to low EF (EF < 40% required). Some of the difficulty of this case is obtaining a reliable velocity in the LVOT; however, the peak velocity was only 2.5 m/s. A transesophageal echo could be considered for direct planimetry if clinically indicated. FINDINGS: Study Quality Adequate Left Ventricle Global left ventricular systolic function is mildly reduced. Ejection fraction is estimated to be 50%. There are no left ventricular segmental wall motion abnormalities. The left ventricular diastolic filling pattern is consistent with impaired LV relaxation. Doppler assessment is consistent with normal left sided filling pressure. The basal anteroseptal, basal anterior, basal anterolateral, basal inferolateral, basal inferior, basal inferoseptal, mid anteroseptal, mid anterior, mid anterolateral, mid inferolateral, mid inferior, mid inferoseptal, apical septal, apical anterior, apical lateral and apical inferior wall segments are hypokinetic. Right Ventricle Right ventricular chamber size, wall thickness, and systolic function are within normal limits. Aortic Valve The aortic valve is tricuspid. The aortic valve leaflets are moderately thickened. The peak instantaneous trans-valvular gradient across the aortic valve is 25 mmHg. The mean trans-valvular gradient across the aortic valve is 15 mmHg. The calculated aortic valve area is 1.11 cm2. There is mild aortic valve stenosis. There is a trace of aortic regurgitation present. Mitral Valve The mitral valve appears normal in structure and function. There is trace mitral regurgitation present. Tricuspid Valve The tricuspid valve appears normal in structure and function. There is trace tricuspid regurgitation present. Pulmonic Valve The pulmonic valve appears normal in structure and function. Pericardium The pericardium appears normal and there is no evidence of a pericardial effusion. Aorta The aortic root is normal in size. The ascending aorta is normal in size. Pulmonary Artery The main pulmonary artery appears normal. Venous The inferior vena cava appears normal in size. There is a greater than 50% respiratory change in the inferior vena cava dimension. Misc See remainder of report for additional findings. Two-dimensional echo, spectral Doppler and color Doppler performed. Wall Motion: Segment Name Rest Base-Anteroseptal Hypokinetic Base-Anterior Hypokinetic Base-Anterolateral Hypokinetic Base-Posterolateral Hypokinetic Base-Inferior Hypokinetic Base-Inferoseptal Hypokinetic Mid-Anteroseptal Hypokinetic Mid-Anterior Hypokinetic Mid-Anterolateral Hypokinetic Mid-Posterolateral Hypokinetic Mid-Inferior Hypokinetic Mid-Inferoseptal Hypokinetic [place]-Septal Hypokinetic [place]-Anterior Hypokinetic [place]-Lateral Hypokinetic [place]-Inferior Hypokinetic [place]-Tip Hypokinetic Chambers Value Units (Range) IVSd 2D 1.1 cm LVIDd 2D 4.4 cm PWd 2D 1.1 cm LVIDs 2D 3.4 cm LVFS 2D 22 % Ao root 2.8 cm (2.1 to 3.6) Asc Ao 2.8 cm (2 to 3.5) Aortic Valve Value Units (Range) AV grad P 25 mmHg AV grad M 15 mmHg GEOVANNA(wero) 1.1 cm2 (2 to 4) DOI 0.35 AV pk wero 2.5 m/sec (1 to 1.7) LVOT pk wero 0.89 m/sec (0.7 to 1.1) LVOT D 2 cm Mitral Valve Value Units (Range) E peak 0.5 m/sec E/A ratio 0.6 ratio MVDT 173 msec E1 0.08 m/sec E/E1 6.3 ratio This report has been electronically signed by: Lee Kincaid MD 01/23/2014 16:34:37 Images reviewed and interpretation verified [facility] Lee Kincaid MD ECHO ORDERABLES documented in this encounter Visit Diagnoses Diagnosis Cardiomyopathy Other primary cardiomyopathies SOB (shortness of breath) Shortness of breath Cardiomyopathy Other primary cardiomyopathies documented in this encounter Administered Medications Inactive Administered Medications - up to 3 most recent administrations Medication Order MAR Action Action Date Dose Rate Site diaZEPam (VALIUM) tablet 5 mg 5 mg, Oral, ONCE, 1 dose, On Wed01/23/14 at 0845, Cath (Day of Procedure), Routine Given 01/23/2014 10:46 AM EDT 5 mg diphenhydrAMINE (BENADRYL) capsule 25 mg 25 mg, Oral, ONCE, 1 dose, On Wed01/23/14 at 0845, Cath (Day of Procedure), Routine Given 01/23/2014 10:46 AM EDT 25 mg fentaNYL 50mcg/mL injection ONCE PRN, Starting on Wed01/23/14 at 1158, Until Wed01/23/14 at 1224, Pain, Cath (Intra-Procedure), Routine Given 01/23/2014 12:24 PM EDT 25 mcg Given 01/23/2014 11:58 AM EDT 25 mcg fentaNYL 50mcg/mL injection ONCE PRN, Starting on Wed01/23/14 at 1231, Until Wed01/23/14 at 1239, Pain, Cath (Intra-Procedure), Routine Given 01/23/2014 12:31 PM EDT 25 mcg heparin (porcine) injection ONCE PRN, Starting on Wed01/23/14 at 1131, Until Wed01/23/14 at 1224, Cath (Intra-Procedure), Routine Given 01/23/2014 11:31 AM EDT 3,000 Units iohexol (OMNIPAQUE) 350 mg iodine/mL injection ONCE PRN, Starting on Wed01/23/14 at 1224, Until 6/24/14 at 1224, Per Protocol, Cath (Intra-Procedure), Routine Given 01/23/2014 12:24 PM EDT 80 mLs midazolam (PF) (VERSED) 1 mg/mL injection ONCE PRN, Starting on Wed01/23/14 at 1158, Until Wed01/23/14 at 1224, Sleep, Cath (Intra-Procedure), Routine Given 01/23/2014 12:24 PM EDT 1 mg Given 01/23/2014 11:58 AM EDT 1 mg sodium chloride 0.9 % flush 5 mL 5 mL, Intravenous, EVERY 12 HOURS, First dose on Wed01/23/14 at 0845, Until Discontinued, Cath (Day of Procedure), Routine Given 01/23/2014 12:18 PM EDT 250 mLs sodium chloride 0.9% infusion 200 mL/hr, Intravenous, CONTINUOUS, Starting on Wed01/23/14 at 0845, Until Wed01/23/14 at 1324, Cath (Day of Procedure) New Bag 01/23/2014 8:59 AM EDT 200 mL/hr 200 mL/hr sodium chloride 0.9% infusion 100 mL/hr, Intravenous, CONTINUOUS, Starting on Wed01/23/14 at 1330, Until Wed01/23/14 at 2045 New Bag 01/23/2014 1:10 PM EDT 100 mL/hr 100 mL/hr documented in this encounter Active and Recently Administered Medications Times are shown in EDT. Scheduled Medication Order 01/21/2014 01/22/2014 01/23/2014 diaZEPam (VALIUM) tablet 5 mg (COMPLETED) 5 mg, Oral, ONCE, 1 dose, On Wed01/23/14 at 0845, Cath (Day of Procedure), Routine 1046 (Given - Provid er: Nora Kang RN) diphenhydrAMINE (BENADRYL) capsule 25 mg (COMPLETED) 25 mg, Oral, ONCE, 1 dose, On Wed01/23/14 at 0845, Cath (Day of Procedure), Routine 1046 (Given - Provid er: Nora Kang RN) sodium chloride 0.9 % flush 5 mL (CANCELED) 5 mL, Intravenous, EVERY 12 HOURS, First dose on Wed01/23/14 at 0845, Until Discontinued, Cath (Day of Procedure), Routine 0845 (Due)1218 (Give n - Provider: Nitesh Stern RN) Continuous Medication Order 01/21/2014 01/22/2014 01/23/2014 sodium chloride 0.9% infusion (CANCELED) 200 mL/hr, Intravenous, CONTINUOUS, Starting on Wed01/23/14 at 0845, Until Wed01/23/14 at 1324, Cath (Day of Procedure) 0859 (New Bag - Prov ider: Katelynn Parr RN) sodium chloride 0.9% infusion (CANCELED) 100 mL/hr, Intravenous, CONTINUOUS, Starting on Wed01/23/14 at 1330, Until Wed01/23/14 at 2045 1310 (New Bag - Prov ider: Seble Espinoza RN) PRN Medication Order 01/21/2014 01/22/2014 01/23/2014 fentaNYL 50mcg/mL injection (CANCELED) ONCE PRN, Starting on Wed01/23/14 at 1158, Until Wed01/23/14 at 1224, Pain, Cath (Intra-Procedure), Routine 1158 (Given - Provid er: Nitesh Stern RN)1224 (Given - Provider: Nitesh Stern RN) fentaNYL 50mcg/mL injection (CANCELED) ONCE PRN, Starting on Wed01/23/14 at 1231, Until Wed01/23/14 at 1239, Pain, Cath (Intra-Procedure), Routine 1231 (Given - Provid er: Nitesh Stern, VALDO) heparin (porcine) injection (CANCELED) ONCE PRN, Starting on Wed01/23/14 at 1131, Until Wed01/23/14 at 1224, Cath (Intra-Procedure), Routine 1131 (Given - Provid er: Nitesh Stern, VALDO) iohexol (OMNIPAQUE) 350 mg iodine/mL injection (CANCELED) ONCE PRN, Starting on Wed01/23/14 at 1224, Until Wed01/23/14 at 1224, Per Protocol, Cath (Intra-Procedure), Routine 1224 (Given - Provid er: Alan Mckinnon MD) midazolam (PF) (VERSED) 1 mg/mL injection (CANCELED) ONCE PRN, Starting on Wed01/23/14 at 1158, Until Wed01/23/14 at 1224, Sleep, Cath (Intra-Procedure), Routine 1158 (Given - Provid er: Nitesh Stern RN)1224 (Given - Provider: Nitesh Stern RN) documented in this encounter Care Teams Cryptographic Technician Relationship Specialty Start Date End Date Danni Laird APRN [id number] [place] [address] PCP - General 01/23/14 11/11/14 documented as of this encounter
--- OUTSIDE RECORDS SUMMARY | 2024-02-15 14:11 | XMS_ITS | Encounter Summary ---
Author Organization [facility] Address [facility] [place] [address] Care Team Providers Care Switch House Operator Name Role Phone Ashley Quirogan Sylvia ANURAG Primary Care Provider [phone] Reason for Visit * Consultation (Urgent) - Closed Specialty Diagnoses / Procedures Referred By Crispin t Referred To Contact Cardiac Surgery Diagnoses aortic stenosis, consideration for valve replacement Antelmo Burrell MD [address] [place] [id number] Alirio Esparza MD [facility] [address] [place]IOTH[place] [address] Referral ID Status Reason Start Date Expiration Date V isits Requested Visits Authorized [id number] Closed Connection Center 03/04/2016 03/04/2017 1 1 Encounter Details Date Type Department Care Team (Late st Contact Info) Description 03/24/2016 10:40 AM EDT Office [place] [address] Alirio Esparza MD [facility] [address] CARDIOTH[place] [address] Aortic valve stenosis, unspecified etiology Social History [...] Taken Comments Blood Pressure - - Pulse 74 03/24/2016 10:34 AM EDT Temperature - - Respiratory Rate - - Oxygen Saturation 98% 03/24/2016 10:34 AM EDT Inhaled Oxygen Concentration - - Weight 90.7 kg (200 lb) 03/24/2016 10:34 AM EDT Height 157.5 cm (5' 2) 03/24/2016 10:34 AM EDT Body Mass Index 36.58 03/24/2016 10:34 AM EDT documented in this encounter Progress Notes * Alirio Esparza MD - 03/24/2016 10:40 AM EDT This is a patient of Antelmo Burrell [facility] Cardiology. Mrs. Thacker is being sent for consideration of AVR for severe aortic stenosis. Mrs. Thacker is someone who I have [...] gone to the Emergency Room for this. She has a past medical history of hypercholesterolemia, depression, hypertension as well as obesity. She has had no surgeries on her chest. She has an echocardiogram that reveals a severely stenotic valve and I have reviewed this study myself. She currently is interested in valve surgery early in the month of June. She feels well enough right now to continue. She understands that she should take it easy and if she is experiencing increasing symptoms come back and see me. The plan right now will be to see her in the first week or 2 of May and have her cathed in May so that we can do her valve replacement in early June. We need to make an appointment both for her precath visit and her preop visit in early May. This was a 30 minute visit, 20 minutes were spent [id number] with the patient discussing aortic stenosis and valve replacement. documented in this encounter Plan of Treatment Upcoming Encounters Date Type Department Care Team (Mi st Contact Info) Description 02/22/2024 4:15 PM EDT Office Visit Dermatology at [place] [address] [place] [address] Marek Bonilla MD [address] [place] [address] 06/05/2024 11:30 AM EST [place] [address] Magdalena Peralta MD [facility] [place] [address] documented as of this encounter Visit Diagnoses Diagnosis Aortic valve stenosis, unspecified etiology documented in this encounter Care Teams Switch House Operator Relationship Specialty Start Date End Date Deborah Quiroga APRN PCP - General Family Medicine 03/24/16 02/04/23 documented as of this encounter
--- OUTSIDE RECORDS SUMMARY | 2024-02-15 14:11 | XMS_ITS | Encounter Summary ---
Author Organization [facility] [place] [address] Care Team Providers Care Billing Supervisor Name Role Phone EitanDanni ANURAG Primary Care Provider [phone] Encounter Details Date Type Department Care Team (Late st Contact Info) Description 01/22/2014 Telephone Cardiology at [address] [phone] Cynthia Arrington LPN Social History Tobacco Use Types Packs/Day Years Used Date Smoking Tobacco: Never Alcohol Use Standard Drinks/Week Comments No 0 (1 standard drink = 0.6 oz pur e alcohol) none Sex and Gender Information Value Date Recorded Sex Assigned at Not on file Gender Identity Not on file Sexual Orientation Not on file documented as of this encounter Miscellaneous Notes * Telephone Encounter - Cynthia Arrington LPN - 01/23/2014 2:39 PM EDT This typewriter ribbon winder did not receive a call back from patient to give instructions for procedure and was admitted for cardiac catheterization today.. * Telephone Encounter - Cynthia Arrington LPN - 01/22/2014 10:52 AM EDT Placed call to patient to give instructions for procedure 01/23/14.. Left message with instructions to call back cardiology clinic. documented in this encounter Plan of Treatment Upcoming Encounters Date Type Department Care Team (Late st Contact Info) Description 02/22/2024 4:15 PM EDT Office Visit Dermatology at [place] [address] [place] [address] Marek Bonilla MD [address] [place] [address] 06/05/2024 11:30 AM EST Office Visit [place] [address] Magdalena Peralta MD [facility] [place] [address] documented as of this encounter Visit Diagnoses Not on filedocumented in this encounter Care Teams Billing Supervisor Relationship Specialty Start Date End Date Danni Laird APRN [address] [place] [address] PCP - General 01/23/14 11/11/14 documented as of this encounter
--- OUTSIDE RECORDS SUMMARY | 2024-02-15 14:11 | XMS_ITS | Encounter Summary ---
Author Organization [facility] Address [facility] [place] [address] Care Team Providers Care Kiss Mixer Name Role Phone Ashley Quirogazac Shields APRN Primary Care Provider [phone] Reason for Visit * Auth/Cert Specialty Diagnoses / Procedures Referred By Crispin t Referred To Contact Diagnoses AVS Procedures CARDIAC CATHETERIZATION Referral ID Status Reason Start Date Expiration Date Visits Re quested Visits Authorized [id number] 1 1 Encounter Details Date Type Department Care Team (Late st Contact Info) Description 06/03/2016 7:30 AM EDT - 06/03/2016 8:30 AM EDT [place] [phone] Mario Alberto Escobedo MD [facility] [place] [address] CARDIAC CATHETERIZATION Social History Tobacco Use Types [...] Sign Reading Time Taken Comments Blood Pressure 132/76 06/03/2016 6:47 AM EDT Pulse 80 06/03/2016 6:47 AM EDT Temperature 36.6 ??C (97.9 ??F) 06/03/2016 6:47 AM ED T Respiratory Rate 16 06/03/2016 6:47 AM EDT Oxygen Saturation 98% 06/03/2016 6:47 AM EDT Inhaled Oxygen Concentration - - Weight 94.3 kg (207 lb 14.3 oz) 06/03/2016 6:47 AM EDT Height 157.5 cm (5' 2) 06/03/2016 6:47 AM EDT Body Mass Index 38.02 06/03/2016 6:47 AM EDT documented in this encounter Discharge Instructions * Discharge Instructions* Bell Larry RN - 06/03/2016 11:58 AM EDT Radial Access for Heart Cath Activity If you are discharged the same day as your procedure, do not drive yourself home. Arrange to have another person drive. You may walk around when you get home, but keep your activity at a minimum until the morning. Try to avoid bending your wrist for the first 12-24 hours after the procedure to allow the artery to fully heal. Do not participate in active sports for 48 hours. Do not lift anything greater than 5 lbs. You may engage in sexual activity after 48 hours. Catheter Insertion Area Care Take the dressing [...] your fingers or hand contact your doctor. If you feel faint or dizzy, lie down with your feet elevated. Have someone call the doctor. If you are alert, drink fluids. How to Deal with Chest Pain If you had only the cardiac catheterization, treat any angina or chest discomfort as instructed. Stop what you are doing, and sit or lie down. If prescribed, take nitroglycerin under your tongue. If the angina isn't relieved, take another nitroglycerin in 5 minutes. After another 5 minutes, a third nitroglycerin may be taken. If the angina isn't improved you should call for an ambulance to bring you to the nearest hospital emergency room. If your angina is more frequent or severe than before, contact your doctor. We usually would not expect you to have angina after an angioplasty. If you do get angina, treat itas you did before, but also contact your doctor. Return to Work The doctor will usually have told you when to return to work. If you do not perform heavy physical labor, most people can return to work in a few days. Diet Follow your previous diet unless otherwise instructed. Cardiac Risk Factor If you have coronary artery disease, it is important that you help control it by reducing your cardiac risk factors. If you smoke, we urge you to stop now. If you think this is going to be a problem,let us know so that we may help you. We have dieticians who can help you learn about a low fat, lowcholesterol diet. Cardiac rehabilitation programs can help you set up a regular exercise program. Work with your doctor if you have high blood pressure or sugar diabetes to keep these under control. Medications Take your usual medications medication changes If you are taking medications prescribed by your doctor, do not take any [id number] medicinesor herbal preparations without first discussing this with your doctor or pharmacist. There is the possibility of side effects and interactions when these are combined. Follow Up Care Who to call with questions or problems If there are any questions or problems that you think might be related to your cardiac cath or angioplasty, contact the stave block roller supervisor chlorine liquefaction by calling [facility] at . * Patient Instructions* Felicia Corrigan - 06/03/2016 9:33 AM EDT Cardiology Instructions Call your doctor if: Chest pain, dyspnea, pain or swelling in legs occurs. If you have non-emergent questions between now and the time of your follow up appointments: -During 8am-5pm Wednesday through Wednesday call [phone] to speak with a nurse in the cardiology clinic -All other times call [phone] and ask to speak to the political science chair supervisor chlorine liquefaction. MEDICATIONS - restart your spironolactone, discontinue prior to surgery at the direction of Dr. Esparza Return to work/ usual actvities: 1 week, as tolerated. Do not lift anything greater than 1 gallon for milk for 1 week You can shower the day after your procedure, but don't take any tub baths or soak in pools for 1 week after your procedure. Driving: No driving for 48 hours after catheterization. Follow up Appointments: Primary care provider: Cardiology: Deborah Hahn, CAT OPERATOR [phone] Follow up as planned or as needed. Dr. Esparza [phone] Other follow-up appointment: Hematology - Dr. Mario Alberto Pina - expected appointment Wednesday06/09/2016, 3pm documented in this encounter Medications at Time [...] as of this encounter Progress Notes * Joy Tillman RN - 06/03/2016 1:10 PM EDT Instructions given with brother at side earlier. * Bell Larry RN - 06/03/2016 11:53 AM EDT Labs obtained. * Mario Alberto Escobedo MD - 06/03/2016 9:27 AM EDT Interventional Cardiology Staff: Tolerated R + L heart cath/coronary angiography in anticipation of surgical AVR smoothly--no coronary disease evident, filling pressures normal. I spoke with Drs. Esparza and Yovani regarding her neutropenia. Appt will be made for her to see Dr. Pina; labs to be drawn today to start work-up for the hematologic disorder. MARIO ALBERTO ESCOBEDO MD documented in this encounter H&P Notes * Felicia Corrigan - 06/03/2016 7:50 AM EDT 24 hour Update: Ms. Thacker is a 60 yo female with moderate to severe , with significant symptoms of presyncope anddyspnea. Please see Dr Koch note from 05/19/2016 for H&P. She has significant neutropenia,HLD, HTN, and cardiomyopathy with present EF of 50%. She has no anticoagulation presently. She held Aldactone this AM. Lab Results Component Value Date CREATININE 0.95 05/19/2016 BUN 13 05/19/2016 NA 140 05/19/2016 K 4.3 05/19/2016 CL 101 05/19/2016 CO2 27 05/19/2016 Lab Results Component Value Date WBC 1.6 (CRIT) 05/19/2016 HGB 12.5 05/19/2016 HCT 37.9 05/19/2016 MCV 95.7 (H) 05/19/2016 PLATELET 227 05/19/2016 RHC/LHC for pre-AVR evaluation. documented in this encounter Plan of Treatment Upcoming Encounters Date Type Department Care Team (Late st Contact Info) Description 02/22/2024 4:15 PM EDT Office Visit Dermatology at [place] [address] [place] [address] Marek Bonilla MD [address] [place] [address] 06/05/2024 11:30 AM EST Office [place] [address] Magdalena Peralta MD [facility] [place] [address] documented as of this encounter Procedures Procedure Name Priority Date/Time Associated Diagnosis Comments GREEN TUBE HOLD Routine 06/03/2016 11:45 AM EDT METHYLMALONIC ACID, SERUM Routine 06/03/2016 11:45 AM EDT GRANULOCYTE ANTIBODY Routine 06/03/2016 11:45 AM EDT SEDIMENTATION RATE Routine 06/03/2016 11 :45 AM EDT TSH Routine 06/03/2016 11:45 AM EDT LACTATE DEHYDROGENASE Routine 06/03/2016 11:45 AM EDT HOMOCYSTEINE TOTAL, PLASMA Routine 06/03/2016 11:45 AM EDT FOLATE, SERUM Routine 06/03/2016 11:45 AM EDT COMPREHENSIVE METABOLIC PANEL (NON-FASTING) Routine 06/03/2016 11:45 AM EDT documented in this encounter Results * Green Tube HOLD (06/03/2016 11:45 AM EDT) [facility] Green Hold Sample in lab. [facility] Blood specimen (specimen) Venous Draw / Unknown 06/03/2016 11:45 AM EDT 06/03/2016 12:12 PM EDT Mario Alberto Escobedo MD CHEMISTRY ORDERABLES Performing Organization Address City/[facility] Co de Phone Number [facility] [place] [address] * Methylmalonic acid, serum (06/03/2016 11:45 AM EDT) [facility] Methylmalonic Acid 0.21 <=0.40 nmol/mL [facility] Comment: Test Performed by: [place] [address] Preschool Disability Teacher: Raymond Chaudhry II, M.D., Ph.D. Blood specimen (specimen) 06/03/2016 11:45 AM EDT 06/03/2016 1:57 PM EDT Narrative Resulting Agency Comment Spec In Lab Mario Alberto Escobedo MD CHEMISTRY ORDERABLES Performing Organization Address City/[facility]/ZIP Co de Phone Number [facility] [place] [address] * Granulocyte Antibody (06/03/2016 11:45 AM EDT) [facility] Granulocyte Ab Negative Not Applicable [facility] Comment: ADDITIONAL INFORMATION Method: Immunofluorescent Assay Performing Laboratory CLIA# [id number] This test was developed and its performance characteristics determined by [facility] in a manner consistent with CLIA requirements. This test has not been cleared or approved by the U.S. Food and Drug Administration. Test Performed by: [facility] - [address] [address] Preschool Disability Teacher: Raymond Chaudhry II, M.D., Ph.D. Blood specimen (specimen) 06/03/2016 11:45 AM EDT 06/03/2016 1:57 PM EDT Narrative Resulting Agency Comment Spec In Lab Mario Alberto Escobedo MD IMMUNOLOGY ORDERABLE S Performing Organization Address [facility] de Phone Number [facility] [place] [address] * TSH (06/03/2016 11:45 AM EDT) TSH 2.18 0.27 - 4.20 mcIU/mL [facility] Blood specimen (specimen) 06/03/2016 11:45 AM EDT 06/03/2016 12:11 PM EDT Narrative Resulting Agency Comment Spec In Lab Mario Alberto Escobedo MD CHEMISTRY ORDERABLES Performing Organization Address [facility] de Phone Number [facility] [place] [phone] * Homocysteine Total, Plasma (06/03/2016 11:45 AM EDT) Homocyst Tot 9 <=15 mcmol/L [facility] Blood specimen (specimen) 06/03/2016 11:45 AM EDT 06/03/2016 12:11 PM EDT Narrative Resulting Agency Comment Spec In Lab Mario Alberto Escobedo MD CHEMISTRY ORDERABLES Performing Organization Address [facility] Co de Phone Number [facility] [place] [address] * Folate, serum (06/03/2016 11:45 AM EDT) Folate Lvl >20.0 4.8 - 24.2 ng/mL [facility] Blood specimen (specimen) 06/03/2016 11:45 AM EDT 06/03/2016 12:04 PM EDT Narrative Resulting Agency Comment Spec In Lab Mario Alberto Escobedo MD CHEMISTRY ORDERABLES Performing Organization Address City/[facility] Co de Phone Number [facility] [place] [address] * (ABNORMAL) Sedimentation rate (06/03/2016 11:45 AM EDT) Sed Rate 41(H) 0 - 20 mm/hr [facility] Blood specimen (specimen) 06/03/2016 11:45 AM EDT 06/03/2016 12:04 PM EDT Narrative Resulting Agency Comment Spec In Lab Mario Alberto Escobedo MD HEMATOLOGY ORDERABLE S Performing Organization Address [facility]/ZIP Co de Phone Number [facility] [place] [address] * Lactate Dehydrogenase (06/03/2016 11:45 AM EDT) LDH 164 110 - 220 unit/L [facility] Blood specimen (specimen) 06/03/2016 11:45 AM EDT 06/03/2016 12:11 PM EDT Narrative Resulting Agency Comment Spec In Lab Mario Alberto Escobedo MD CHEMISTRY ORDERABLES Performing Organization Address [facility]/ZIP Co de Phone Number [facility] [place] [address] * Comprehensive metabolic panel (non-fasting) (06/03/2016 11:45 AM EDT) Glucose Lvl 90 65 - 199 mg/dL [facility] Comment:Diabetes: >=200 mg/d L plus symptoms BUN 11 8 - 18 mg/dL [facility] Creatinine 0.83 0.70 - 1.20 mg/dL [facility] Comment: Please note that the pediatric reference intervals supplied above were not validated at [facility]. Results from pediatric patients should be interpreted in conjunction to the patient's age, height and muscle mass. Sodium 143 135 - 145 mmol/L [facility] Potassium 4.0 3.5 - 5.0 mmol/L [facility] Comment: Please note: ??Patients with WBC >100,000 may have falsely elevated Potassium levels. ??For accurate Potassium quantification in these patients send serum separator tube (gold top) for subsequent determinations. ??Contact the Clinical Chemistry Laboratory if there are any questions. Chloride 104 98 - 107 mmol/L [facility] CO2 25 22 - 31 mmol/L [facility] Anion Gap 14 5 - 15 mmol/L [facility] Calcium 9.2 8.5 - 10.5 mg/dL [facility] Total Protein 7.0 6.1 - 8.0 gm/dL [facility] Albumin 4.0 3.2 - 5.2 gm/dL [facility] AST 17 0 - 30 unit/L [facility] ALT 9 0 - 30 unit/L [facility] Alk Phos 81 40 - 104 unit/L [facility] Total Bilirubin 0.4 0.2 - 1.3 mg/dL [facility] Bili, Direct 0.1 0.0 - 0.3 mg/dL [facility] Estimated GFR >60 >=60 [facility] Comment: This estimated GFR (eGFR) [...] the following links into your internet browser. [email or web address] Blood specimen (specimen) 06/03/2016 11:45 AM EDT 06/03/2016 12:11 PM EDT Narrative Resulting Agency Comment Spec In Lab Mario Alberto Escobedo MD [place] [address] documented in this encounter Visit Diagnoses Diagnosis Aortic valve stenosis, unspecified etiology Nonrheumatic aortic valve stenosis Aortic valve disorders Aortic valve stenosis, unspecified etiology documented in this encounter Administered Medications Inactive Administered Medications - up to 3 most recent administrations Medication Order MAR Action Action Date Dose Rate Site fentaNYL 50 mcg/mL multi-dose injection ONCE PRN, Starting on Wed06/03/16 at 0853, Until Wed06/03/16 at 0917, Cath (Intra-Procedure), Routine Given 06/03/2016 8:53 AM EDT 25 mcg heparin (porcine) injection ONCE PRN, Starting on Wed06/03/16 at 0856, Until Wed06/03/16 at 0917, Cath (Intra-Procedure), Routine Given 06/03/2016 8:56 AM EDT 5,000 Units iohexol (OMNIPAQUE) 350 mg/mL solution ONCE PRN, Starting on Wed06/03/16 at 0916, Until Wed06/03/16 at 0917, Cath (Intra-Procedure), Routine Given 06/03/2016 9:16 AM EDT 40 mLs lidocaine (XYLOCAINE) 10 mg/mL (1 %) injection 3 mg 3 mg (0.3 mL), Subcutaneous, ONCE PRN, 1 dose, Starting on Wed06/03/16 at 0639, Until Wed06/03/16 at 0654, with discomfort with PIV insertion, Cath (Day of Procedure), Routine Given 06/03/2016 6:54 AM EDT 3 mg midazolam (PF) (VERSED) 1 mg/mL multi-dose injection ONCE PRN, Starting on Wed06/03/16 at 0853, Until Wed06/03/16 at 0917, Cath (Intra-Procedure), Routine Given 06/03/2016 8:53 AM EDT 1 mg sodium chloride 0.9% infusion 50 mL/hr, Intravenous, CONTINUOUS, Starting on Wed06/03/16 at 0700, Until Wed06/03/16 at 0927, Cath (Day of Procedure) New Bag 06/03/2016 6:54 AM EDT 50 mL/hr 50 mL/hr sodium chloride 0.9% infusion 150 mL/hr, Intravenous, CONTINUOUS, Starting on Wed06/03/16 at 1000, Until Wed06/03/16 at 1259, Recovery (Recovery-Hospital Unit) Rate/Dose Verify 06/03/2016 12:58 PM EDT 150 mL/hr 150 mL/hr Rate/Dose Verify 06/03/2016 12:00 PM EDT 150 mL/hr 150 mL /hr New Bag 06/03/2016 9:40 AM EDT 150 mL/hr 150 mL/hr verapamil (ISOPTIN) injection ONCE PRN, Starting on Wed06/03/16 at 0853, Until Wed06/03/16 at 0917, Administer over 2 Minutes, Cath (Intra-Procedure) Given 06/03/2016 8:53 AM EDT 2.5 mg documented in this encounter Active and Recently Administered Medications Times are shown in EDT. Continuous Medication Order 06/01/2016 06/02/2016 06/03/2016 sodium chloride 0.9% infusion (CANCELED) 50 mL/hr, Intravenous, CONTINUOUS, Starting on Wed06/03/16 at 0700, Until Wed06/03/16 at 0927, Cath (Day of Procedure) 0654 (New Bag - Prov ider: Alie Madrid RN) sodium chloride 0.9% infusion 150 mL/hr, Intravenous, CONTINUOUS, Starting on Wed06/03/16 at 1000, Until Wed06/03/16 at 1259, Recovery (Recovery-Hospital Unit) 0940 (New Bag - Prov ider: Seble Espinoza RN - Comment: NS 500 CC BAG)1200 (Rate/Dose Verify - Provider: Joy Tillman, VALDO)1258 (Rate/Dose Verify - Provider: Joy Tillman, VALDO) PRN Medication Order 06/01/2016 06/02/2016 06/03/2016 fentaNYL 50 mcg/mL multi-dose injection (CANCELED) ONCE PRN, Starting on Wed06/03/16 at 0853, Until Wed06/03/16 at 0917, Cath (Intra-Procedure), Routine 852 (Given - Provid er: Alirio Hernandez) heparin (porcine) injection (CANCELED) ONCE PRN, Starting on Wed06/03/16 at 0856, Until Wed06/03/16 at 0917, Cath (Intra-Procedure), Routine 08 (Given - Provid er: Alirio Hernandez) iohexol (OMNIPAQUE) 350 mg/mL solution (CANCELED) ONCE PRN, Starting on Wed06/03/16 at 0916, Until Wed06/03/16 at 0917, Cath (Intra-Procedure), Routine 915 (Given - Provid er: Alirio Hernandez) lidocaine (XYLOCAINE) 10 mg/mL (1 %) injection 3 mg (COMPLETED) 3 mg (0.3 mL), Subcutaneous, ONCE PRN, 1 dose, Starting on Wed06/03/16 at 0639, Until Wed06/03/16 at 0654, with discomfort with PIV insertion, Cath (Day of Procedure), Routine 653 (Given - Provid er: Alie Madrid RN) midazolam (PF) (VERSED) 1 mg/mL multi-dose injection (CANCELED) ONCE PRN, Starting on Wed06/03/16 at 0853, Until Wed06/03/16 at 0917, Cath (Intra-Procedure), Routine 852 (Given - Provid er: Alirio Hernandez) verapamil (ISOPTIN) injection (CANCELED) ONCE PRN, Starting on Wed06/03/16 at 0853, Until Wed06/03/16 at 0917, Administer over 2 Minutes, Cath (Intra-Procedure) 852 (Given - Provid er: Alirio Hernandez) documented in this encounter Care Teams Kiss Mixer Relationship Specialty Start Date End Date Deborah Quiroga APRN PCP - General Family Medicine 03/24/16 02/04/23 documented as of this encounter
--- OUTSIDE RECORDS SUMMARY | 2024-02-15 14:11 | XMS_ITS | Encounter Summary ---
Author Organization [facility] Address [facility] [place] [address] Care Team Providers Care Sanitation Laborer Name Role Phone Ashley Quirogazac Shields APRN Primary Care Provider [phone] Reason for Visit * Auth/Cert Specialty Diagnoses / Procedures Referred By Crispin t Referred To Contact Diagnoses AVS Procedures CARDIAC CATHETERIZATION Referral ID Status Reason Start Date Expiration Date Visits Re quested Visits Authorized [id number] 1 1 Encounter Details Date Type Department Care Team (Late st Contact Info) Description 06/03/2016 6:32 AM EDT - 06/03/2016 1:10 PM EDT Hospital Encounter [place] [address] Anjum Oliveros II, MD [facility] [place] [address] Mario Alberto Escobedo MD [facility] [place] [address] Aortic valve stenosis, unspecified etiology; Nonrheumatic aortic valve stenosis Discharge Disposition: Home [...] Sign Reading Time Taken Comments Blood Pressure 110/62 06/03/2016 12:00 PM EDT Pulse 69 06/03/2016 12:00 PM EDT Temperature 36.6 ??C (97.9 ??F) 06/03/2016 6:47 AM ED T Respiratory Rate 16 06/03/2016 12:0 0 PM EDT Oxygen Saturation 96% 06/03/2016 12: 00 PM EDT Inhaled Oxygen Concentration - - Weight 94.3 kg (207 lb 14.3 oz) 06/03/2016 6:47 AM EDT Height 157.5 cm (5' 2) 06/03/2016 6:47 AM EDT Body Mass Index 38.02 06/03/2016 6:47 AM EDT documented in this encounter Discharge Instructions * Discharge Instructions* Bell Larry, RN - 06/03/2016 11:58 AM EDT Radial [...] by your doctor, do not take any denc-raf-jejdgxq medicinesor herbal preparations without first discussing this with your doctor or pharmacist. There is the possibility of side effects and interactions when these are combined. Follow Up Care Who to call with questions or problems If there are any questions or problems that you think might be related to your cardiac cath or angioplasty, contact the installation superintendent business control specialist by calling [facility] at . * Patient Instructions* Felicia Corrigan - 06/03/2016 9:33 AM EDT Cardiology Instructions Call your doctor if: Chest pain, dyspnea, pain or swelling in legs occurs. If you have non-emergent questions between now and the time of your follow up appointments: -During 8am-5pm Wednesday through Wednesday call [phone] to speak with a nurse in the cardiology clinic -All other times call [phone] and ask to speak to the reamer hand business control specialist. MEDICATIONS - restart your spironolactone, discontinue prior [...] Appointments: Primary care provider: Cardiology: Deborah Hahn, QA MANAGER [phone] Follow up as planned or as needed. Dr. Esparza [phone] Other follow-up appointment: Hematology - Dr. Mario [...] 4:15 PM EDT Office Visit Dermatology at [address] [address] Marek Bonilla MD [address] [facility] [place] [address] 06/05/2024 11:30 AM EST Office [place] [address] Magdalena Peralta MD [facility] [place] [address] documented as of this encounter Procedures Procedure [...] Green Tube HOLD (06/03/2016 11:45 AM EDT) Green Hold Sample in lab. [facility] Blood specimen (specimen) Venous Draw / Unknown 06/03/2016 11:45 AM EDT 06/03/2016 12:12 PM EDT Mario Alberto Escobedo MD CHEMISTRY ORDERABLES Performing Organization Address City/State/[facility] Co de Phone Number [facility] [place] [address] * Methylmalonic acid, serum (06/03/2016 11:45 AM EDT) Methylmalonic Acid 0.21 <=0.40 nmol/mL [facility] Comment: Test Performed by: [facility] - [address] [address] Card Dealer: Raymond Chaudhry II, M.D., Ph.D. Blood specimen (specimen) 06/03/2016 11:45 AM EDT 06/03/2016 1:57 PM EDT Narrative Resulting Agency Comment Spec In Lab Mario Alberto Escobedo MD CHEMISTRY ORDERABLES Performing Organization Address City/State/[facility] Co de Phone Number [facility] [place] [address] * Granulocyte Antibody (06/03/2016 11:45 AM EDT) [facility] Granulocyte Ab Negative Not Applicable [facility] Comment: ADDITIONAL INFORMATION Method: Immunofluorescent Assay Performing Laboratory CLIA# [id number] This test was developed and its performance characteristics determined by [facility] in a manner consistent with CLIA requirements. This test has not been cleared or approved by the U.S. Food and Drug Administration. Test Performed by: [address] [address] Card Dealer: Raymond Chaudhry II, M.D., Ph.D. Blood specimen (specimen) 06/03/2016 11:45 AM EDT 06/03/2016 1:57 PM EDT Narrative Resulting Agency Comment Spec In Lab Mario Alberto Escobedo MD IMMUNOLOGY ORDERABLE S Performing Organization Address [facility] Co de Phone Number [facility] [place] [address] * TSH (06/03/2016 11:45 AM EDT) [facility] TSH 2.18 0.27 - 4.20 mcIU/mL [facility] Blood specimen (specimen) 06/03/2016 11:45 AM EDT 06/03/2016 12:11 PM EDT Narrative Resulting Agency Comment Spec In Lab Mario Alberto Escobedo MD CHEMISTRY ORDERABLES Performing Organization Address [facility] Co de Phone Number [facility] [place] [address] * Homocysteine Total, Plasma (06/03/2016 11:45 AM EDT) [facility] Homocyst Tot 9 <=15 mcmol/L [facility] Blood specimen (specimen) 06/03/2016 11:45 AM EDT 06/03/2016 12:11 PM EDT Narrative Resulting Agency Comment Spec In Lab Mario Alberto Escobedo MD CHEMISTRY ORDERABLES Performing Organization Address City/[facility]/ZIP Co de Phone Number [facility] [place] [address] * Folate, serum (06/03/2016 11:45 AM EDT) Folate Lvl >20.0 4.8 - 24.2 ng/mL [facility] Blood specimen (specimen) 06/03/2016 11:45 AM EDT 06/03/2016 12:04 PM EDT Narrative Resulting Agency Comment Spec In Lab Mario Alberto Escobedo MD CHEMISTRY ORDERABLES Performing Organization Address [facility] Co de Phone Number [facility] [place] [address] * (ABNORMAL) Sedimentation rate (06/03/2016 11:45 AM EDT) Sed Rate 41(H) 0 - 20 mm/hr [facility] Blood specimen (specimen) 06/03/2016 11:45 AM EDT 06/03/2016 12:04 PM EDT Narrative Resulting Agency Comment Spec In Lab Mario Alberto Escobedo MD HEMATOLOGY ORDERABLE S Performing Organization Address City/[facility]/ZIP Co de Phone Number [facility] [place] [address] * Lactate Dehydrogenase (06/03/2016 11:45 AM EDT) LDH 164 110 - 220 unit/L [facility] Blood specimen (specimen) 06/03/2016 11:45 AM EDT 06/03/2016 12:11 PM EDT Narrative Resulting Agency Comment Spec In Lab Mario Alberto Escobedo MD CHEMISTRY ORDERABLES [facility] [place] [address] * Comprehensive metabolic panel (non-fasting) (06/03/2016 11:45 AM EDT) Glucose Lvl 90 65 - 199 mg/dL [facility] Comment:Diabetes: >=200 mg/d L plus symptoms BUN 11 8 - 18 mg/dL [facility] Creatinine 0.83 0.70 - 1.20 mg/dL [facility] Comment: Please note that the pediatric reference intervals supplied above were not validated at [facility]. Results from pediatric patients should be interpreted in conjunction to the patient's age, height and muscle mass. Sodium 143 135 - 145 mmol/L [facility] Potassium 4.0 3.5 - 5.0 mmol/L [facility] Comment: Please note: ??Patients with WBC >100,000 may have falsely elevated Potassium levels. ??For accurate Potassium quantification in these patients send serum separator tube (gold top) for subsequent determinations. ??Contact the Clinical Chemistry Laboratory if there are any questions. Chloride 104 98 - 107 mmol/L [facility] CO2 25 22 - 31 mmol/L [facility] Anion Gap 14 5 - 15 mmol/L [facility] Calcium 9.2 8.5 - 10.5 mg/dL [facility] Total Protein 7.0 6.1 - 8.0 gm/dL [facility] Albumin 4.0 3.2 - 5.2 gm/dL [facility] AST 17 0 - 30 unit/L [facility] ALT 9 0 - 30 unit/L [facility] Alk Phos 81 40 - 104 unit/L [facility] Total Bilirubin 0.4 0.2 - 1.3 mg/dL [facility] Bili, Direct 0.1 0.0 - 0.3 mg/dL [facility] Estimated GFR >60 >=60 [facility] Comment: This estimated GFR (eGFR) [...] the following links into your internet browser. [email or web address] Blood specimen (specimen) 06/03/2016 11:45 AM EDT 06/03/2016 12:11 PM EDT Narrative Resulting Agency Comment Spec In Lab Mario Alberto Escobedo MD CHEMISTRY ORDERABLES [facility] [place] [address] documented in this encounter Visit Diagnoses Diagnosis Aortic valve stenosis, unspecified etiology Nonrheumatic aortic valve stenosis Aortic valve disorders documented in this encounter Administered Medications Inactive Administered Medications - up to 3 most recent administrations Medication Order MAR Action Action Date Dose Rate Site lidocaine (XYLOCAINE) 10 mg/mL (1 %) injection 3 mg 3 mg (0.3 mL), Subcutaneous, ONCE PRN, 1 dose, Starting on Wed06/03/16 at 0639, Until Wed06/03/16 at 0654, with discomfort with PIV insertion, Cath (Day of Procedure), Routine Given 06/03/2016 6:54 AM EDT 3 mg sodium chloride 0.9% infusion 50 mL/hr, [...] 9:40 AM EDT 150 mL/hr 150 mL/hr documented in this encounter Active and [...] CC BAG)1200 (Rate/Dose Verify - Provider: Joy Tillman RN)1258 (Rate/Dose Verify - Provider: Joy Tillman RN) PRN Medication Order 06/01/2016 06/02/2016 06/03/2016 fentaNYL 50 mcg/mL multi-dose injection (CANCELED) ONCE PRN, Starting on Wed06/03/16 at 0853, Until Wed06/03/16 at 0917, Cath (Intra-Procedure), Routine 0853 (Given - Provid er: Alirio Hernandez) heparin (porcine) injection (CANCELED) ONCE PRN, Starting on Wed06/03/16 at 0856, Until Wed06/03/16 at 0917, Cath (Intra-Procedure), Routine 0856 (Given - Provid er: Alirio Hernandez) iohexol (OMNIPAQUE) 350 mg/mL solution (CANCELED) ONCE PRN, Starting on Wed06/03/16 at 0916, Until Wed06/03/16 at 0917, Cath (Intra-Procedure), Routine 0916 (Given - Provid er: Alirio Hernandez) lidocaine (XYLOCAINE) 10 mg/mL (1 %) injection 3 mg (COMPLETED) 3 mg (0.3 mL), Subcutaneous, ONCE PRN, 1 dose, Starting on Wed06/03/16 at 0639, Until Wed06/03/16 at 0654, with discomfort with PIV insertion, Cath (Day of Procedure), Routine 0654 (Given - Provid er: Alie Madrid RN) midazolam (PF) (VERSED) 1 mg/mL multi-dose injection (CANCELED) ONCE PRN, Starting on Wed06/03/16 at 0853, Until Wed06/03/16 at 0917, Cath (Intra-Procedure), Routine 0853 (Given - Provid er: Alirio Hernandez) verapamil (ISOPTIN) injection (CANCELED) ONCE PRN, Starting on Wed06/03/16 at 0853, Until Wed06/03/16 at 0917, Administer over 2 Minutes, Cath (Intra-Procedure) 0853 (Given - Provid er: Alirio Hernandez) documented in this encounter Care Teams Sanitation Laborer Relationship Specialty Start Date End Date Deborah Quiroga, ANURAG PCP - General Family Medicine 03/24/16 02/04/23 documented as of this encounter
--- OUTSIDE RECORDS SUMMARY | 2024-02-15 14:11 | XMS_ITS | Encounter Summary ---
Author Organization [facility] [place] [address] Care Team Providers Care Olive Picker Name Role Phone Deborah Quiroga APRN Primary Care Provider [phone] Encounter Details Date Type Department Care Team (Late st Contact Info) Description 06/09/2016 Orders Only [place]ematology [place] [phone] Nitesh Pina Jr., MD [facility] HEMATOLOGY/[place] [address] Cyclical neutropenia Social History Tobacco Use Types [...] 4:15 PM EDT Office Visit Dermatology at [address] [place] [phone] Marek Bonilla MD [address] [facility] [place] [address] 06/05/2024 11:30 AM EST Office [place] [phone] Magdalena Peralta MD [facility] [place] [address] documented as of this encounter Results * Immunophenotyping Flow Cytometry (06/09/2016 4:53 PM EST) Immunophenotyping Flow See Comment [facility] Comment: When completed by the Pathologist, the Flow Cytometry Report ([id number]) will display under the Pathology Results section within eD. Specimen of unknown material (specimen) 06/09/2016 4:53 PM EST 06/09/2016 5:00 PM EST Narrative Resulting Agency Comment Spec In Lab Nitesh Pina Jr., MD HEMATOLOGY ORDERABLE S [facility] [place] [address] documented in this encounter Visit Diagnoses Diagnosis Cyclical neutropenia Cyclic neutropenia documented in this encounter Care Teams Olive Picker Relationship Specialty Start Date End Date Deborah Quiroga APRN PCP - General Family Medicine 03/24/16 02/04/23 documented as of this encounter
--- OUTSIDE RECORDS SUMMARY | 2024-02-15 14:11 | XMS_ITS | Encounter Summary ---
[place] [address] Care Team Providers Care Product Marketing Programs Manager Name Role Phone Ashley Quirogan Cornelius ANURAG Primary Care Provider [phone] Encounter Details Date Type Department Care Team (Late st Contact Info) Description 03/24/2016 Notes Only [place] [phone] Alfa Lua Social History Tobacco Use Types Packs/Day Years Used Date Smoking Tobacco: Never Alcohol Use Standard Drinks/Week Comments No 0 (1 standard drink = 0.6 oz pur e alcohol) none Sex and Gender Information Value Date Recorded Sex Assigned at Not on file Gender Identity Not on file Sexual Orientation Not on file documented as of this encounter Progress Notes * Alfa Lua - 03/24/2016 3:25 PM EDT Ms. Thacker is seen in clinic for ongoing evaluation of aortic stenosis. Please refer the clinic notefor detailed assessment and plan. Frailty assessments completed: Wadsworth Score: 6/6 IADL: 7/7 Sales Merchandiser Strength Trials: 18.4, 15.0, 16.8 (right hand dominant) 5 meter walk test in seconds x3: 4.98, 4.88, 4.45 KCCQol: 98% Alfa Lua documented in this encounter Plan of Treatment Upcoming Encounters Date Type Department Care Team (Late st Contact Info) Description 02/22/2024 4:15 PM EDT Office Visit Dermatology at [place] [address] [place] [address] Marek Bonilla MD [address] [facility] [facility] [place] [address] 06/05/2024 11:30 AM EST Office [place] [address] Magdalena Peralta MD [facility] [place] [address] documented as of this encounter Visit Diagnoses Not on filedocumented in this encounter Care Teams Product Marketing Programs Manager Relationship Specialty Start Date End Date Deborah Quiroga APRN PCP - General Family Medicine 03/24/16 02/04/23 documented as of this encounter
--- OUTSIDE RECORDS SUMMARY | 2024-02-15 14:11 | XMS_ITS | Encounter Summary ---
[place] [address] Care Team Providers Care Film Color Tester Name Role Phone Ashley Quirogazac Shields APRN Primary Care Provider [phone] Encounter Details Date Type Department Care Team (Latest Contact Info) Description 05/19/2016 11:20 AM EDT Laboratory [place] [address] Nonrheumatic aortic valve stenosis Social History Tobacco [...] 4:15 PM EDT Office Visit Dermatology at [address] [place] [address] Marek Bonilla MD [address] [facility] [facility] [address] [place] [address] 06/05/2024 11:30 AM EST Office Visit [place] [address] Magdalena Peralta MD [facility] [place] [address] documented as of this encounter Procedures Procedure Name Priority Date/Time Associated Diagnosis Comments SCAN, PERIPHERAL BLOOD Routine 05/19/2016 11:32 AM EDT HEMOGRAM Routine 05/19/2016 11:32 AM EDT Nonrheumatic aortic valve stenosis DIFFERENTIAL, AUTOMATED Routine 05/19/2016 11:32 AM EDT Nonrheumatic aortic valve stenosis TYPE AND SCREEN, SDP (FUTURE SURGERY, [facility] SAME DAY PROGRAM ONLY) Routine 05/19/2016 11:32 AM EDT Nonrheumatic aortic valve stenosis ABO/RH TYPING Routine 05/19/2016 11:32 AM EDT Nonrheumatic aortic valve stenosis CBC (WITH DIFF) Routine 05/19/2016 11:32 AM EDT Nonrheumatic aortic valve stenosis ANTIBODY SCREEN Routine 05/19/2016 11:32 AM EDT Nonrheumatic aortic valve stenosis BASIC METABOLIC PANEL (NON-FASTING) Routine 05/19/2016 11:32 AM EDT Nonrheumatic aortic valve stenosis documented in this encounter Results * Scan, Peripheral Blood (05/19/2016 11:32 AM EDT) Plat Estimate Normal [facility] RBC Morphology Normal [facility] Blood specimen (specimen) 05/19/2016 11:32 AM EDT 05/19/2016 11:41 AM EDT Narrative Resulting Agency Comment Spec In Lab Alirio Esparza MD HEMATOLOGY ORDERABL ES [facility] [place] [address] * (ABNORMAL) Differential, Automated (05/19/2016 11:32 AM EDT) Neutrophils % 25.9 % [facility] Neutr Abs (ANC) 0.42(Crit ical) 1.70 - 6.10 x10(3)/mc L [facility] Comment: This result has been called to DR ALIRIO ESPARZA by Alivia Ibarra on 05 19 2016 at 1228, and has been read back. Lymphocytes % 59.9 % [facility] Lymphocytes Abs 1.0 0.9 - 3.2 x10(3)/[facility] Monocytes % 13.0 % [facility] Monocyte Abs 0.2(L) 0.3 - 0.9 x10(3)/[facility] Eosinophils % 0.6 % [facility] Eosinophils Abs 0.0 0.0 - 0.4 x10(3)/[facility] Basophils % 0.6 % [facility] Basophils Abs 0.0 0.0 - 0.1 x10(3)/[facility] Immature Gran % 0.00 % [facility] Comment: Immature granulocytes(IG's)percentage and absolute count will include metamyelocytes, myelocytes, and promyelocytes. Blood smears from CBCs yielding IG's will be scanned manually for concordance. If this scan disagrees with the automated IG or if promyelocytes are noted, a manual differential will be performed. Amanda Gran Abs 0.00 0.00 - 0.04 x10(3)/[facility] Blood specimen (specimen) 05/19/2016 11:32 AM EDT 05/19/2016 11:41 AM EDT Narrative Resulting Agency Comment Spec In Lab Alirio Esparza MD HEMATOLOGY ORDERABL ES [facility] [place] [address] * (ABNORMAL) Hemogram (05/19/2016 11:32 AM EDT) WBC 1.6(Critic al) 4.0 - 9.5 x10(3)/[facility] Comment: This result has been called to DR ALIRIO ESPARZA by Alivia Ibarra on 05 19 2016 at 1228, and has been read back. RBC 3.96(L) 4.00 - 5.21 x10(6)/mc L [facility] Hemoglobin 12.5 11.7 - 15.5 gm/dL [facility] Hematocrit 37.9 35.7 - 45.8 % [facility] MCV 95.7(H) 82.6 - 94.4 fL [facility] MCH 31.6 27.1 - 32.0 pg [facility] MCHC 33.0 31.7 - 35.0 gm/dL [facility] Platelets 227 145 - 357 x10(3)/mc L [facility] RDWSD 40.5 37.0 - 46.0 [facility] RDWCV 11.5 11.5 - 14.1 % [facility] MPV 8.4 7.6 - 12.9 [facility] nRBC % Auto 0.0 % [facility] nRBC Abs Auto 0.000 0.000 - 0.000 x10(3)/ L [facility] Blood specimen (specimen) 05/19/2016 11:32 AM EDT 05/19/2016 11:41 AM EDT Narrative Resulting Agency Comment Spec In Lab Alirio Esparza MD HEMATOLOGY ORDERABL ES Performing Organization Address City/State/[facility] Co de Phone Number [facility] [place] [address] * Antibody screen (05/19/2016 11:32 AM EDT) Ab Screen Interp Negative [facility] Expires at [id number] on: 07/03/2016 [facility] Comment: Corrected from 06/11/16 12:00 [Unknown] on 06/09/16 05:51 by Bethanie Tomlinson I.. Corrected from 07/03/16 12:00 [Unknown] on 05/21/16 06:00 by Shelia Barrera Blood specimen (specimen) 05/19/2016 11:32 AM EDT 05/19/2016 11:35 AM EDT Narrative Resulting Agency Comment Spec In Lab Alirio Esparza MD BLOOD BANK LAB BETH [place]EJO Performing Organization Address City/[facility]/ZIP Co de Phone Number [facility] [address] * ABO/Rh Typing (05/19/2016 11:32 AM EDT) ABORH Type B Pos [facility] Blood specimen (specimen) 05/19/2016 11:32 AM EDT 05/19/2016 11:35 AM EDT Narrative Resulting Agency Comment Spec In Lab Alirio Esparza MD BLOOD BANK LAB [place] [place]LE[place] Performing Organization Address [facility] Co de Phone Number [facility] [place] [address] * Basic Metabolic Panel (non-fasting) (05/19/2016 11:32 AM EDT) [facility] Signature Glucose Lvl 86 65 - 199 mg/dL [facility] Comment:Diabetes: >=200 mg/d L plus symptoms BUN 13 8 - 18 mg/dL [facility] Creatinine 0.95 0.70 - 1.20 mg/dL [facility] Comment: Please note that the pediatric reference intervals supplied above were not validated at [facility]. Results from pediatric patients should be interpreted in conjunction to the patient's age, height and muscle mass. Sodium 140 135 - 145 mmol/L [facility] Potassium 4.3 3.5 - 5.0 mmol/L [facility] Comment: Please note: ??Patients with WBC >100,000 may have falsely elevated Potassium levels. ??For accurate Potassium quantification in these patients send serum separator tube (gold top) for subsequent determinations. ??Contact the Clinical Chemistry Laboratory if there are any questions. Chloride 101 98 - 107 mmol/L [facility] CO2 27 22 - 31 mmol/L [facility] Anion Gap 12 5 - 15 mmol/L [facility] Calcium 10.1 8.5 - 10.5 mg/dL [facility] Estimated GFR 60 >=60 [facility] Comment: This estimated GFR [...] the following links into your internet browser. [email or web address] Blood specimen (specimen) 05/19/2016 11:32 AM EDT 05/19/2016 11:41 AM EDT Narrative Resulting Agency Comment Spec In Lab Alirio Esparza MD CHEMISTRY ORDERABLE S [facility] [place] [address] documented in this encounter Visit Diagnoses Diagnosis Nonrheumatic aortic valve stenosis Aortic valve disorders documented in this encounter Care Teams Film Color Tester Relationship Specialty Start Date End Date Deborah Quiroga APRN PCP - General Family Medicine 03/24/16 02/04/23 documented as of this encounter
--- OUTSIDE RECORDS SUMMARY | 2024-02-15 14:11 | XMS_ITS | Encounter Summary ---
[facility] [place] [address] Care Team Providers Care Mortgage Broker Name Role Phone EitanDanni ANURAG Primary Care Provider Encounter Details Date Type Department Care Team (Latest Contact Info) Description 01/23/2014 7:45 AM EDT - 01/23/2014 5:50 PM EDT Hospital Encounter [place] [address] Alan Jacobson MD [facility] [place] [address] Cardiomyopathy; SOB (shortness of breath) Discharge Disposition: Home Social History Tobacco Use [...] Sign Reading Time Taken Comments Blood Pressure 130/71 01/23/2014 3:47 PM EDT Pulse 88 01/23/2014 3:47 PM EDT Temperature 37 ??C (98.6 ??F) 01/23/2014 1:30 PM EDT Respiratory Rate 18 01/23/2014 3:47 PM EDT Oxygen Saturation 97% 01/23/2014 3:47 PM EDT Inhaled Oxygen Concentration - - [...] by your doctor, do not take any cjqc-mot-yilkrng medicines or herbal preparations without first discussing this with your doctor or pharmacist. There is the possibility of side effect and interactions when these are combined. Follow up Care Who to Call with Questions or Problems If there are any questions or problems that you think might be related to your cardiac cath or angioplasty, contact the oil prospecting observer classified copy control clerk by calling [facility] at . documented in this encounter Medications [...] 4:15 PM EDT Office Visit Dermatology at [place] [address] [facility] [place] [address] Marek Bonilla MD [address] [facility] [place] [address] 06/05/2024 11:30 AM EST Office Visit [place] [address] Magdalena Peralta MD [facility] [place] [address] documented as of this encounter Procedures Procedure Name Priority Date/Time Associated Diagnosis Comments ECHOCARDIOGRAM TRANSTHORACIC Routine 01/23/2014 3:17 PM EDT SOB (shortness of breath) documented in this encounter Results * Echocardiogram Transthoracic(Leb) (01/23/2014 3:17 PM EDT) EF 50 HEARTLAB SYSTEM Anatomical Region Laterality Modality Other 01/23/2014 Narrative 01/23/2014 4:35 PM EDT Procedure: ? Transthoracic Echocardiogram Patient: ? ANDREW ONESIMO M ?(Age): 1955(58) Med Rec#: ?[id number] ? Sex: ?F ? Site Loc: ?[facility] ? Ht / Wt: ??158(cm)/93(kg) Pt. Loc: ? Adult Floor ?BSA: ?2.02 Study Date: ?01/23/2014 ? Pt. Type: Inpatient Tape: ? Referring: Lee Kincaid ([id number]) Referring: ANNALISA Diesel Engine Mechanic Apprentice: Miguel Beverly Diagnosis:CPT Code(s): ??Echo Full (17396), ??Spectral Doppler (32309), Color Doppler (63051), Indication(s): ??Aortic stenosis Rhythm: Sinus HR ?BP [...] ? Mid-Inferior ?Hypokinetic ? Mid-Inferoseptal ?Hypokinetic ? [place]-Septal ? Hypokinetic ? [place]-Anterior ? Hypokinetic ? [place]-Lateral ?Hypokinetic ? [place]-Inferior ? Hypokinetic ? [place]-Tip ?Hypokinetic ? Chambers ?Value ?Units (Range) ? [...] 01/23/2014 16:34:37 Images reviewed and interpretation verified [facility] Cardiac Ultrasound Laboratory Procedure Note Lee Kincaid MD - 01/23/2014 Procedure: Transthoracic Echocardiogram Patient: ANDREW Mejias DOB(Age): 1955(58) Med Rec#: [id number] Sex: F Site Loc: [facility] Ht / Wt: 158(cm)/93(kg) Pt. Loc: Adult Floor BSA: 2.02 Study Date: 01/23/2014 Pt. Type: Inpatient Tape: Referring: Lee Kincaid ([id number]) Referring: AUSTINELIZABETHGerman Diesel Engine Mechanic Apprentice: Miguel Beverly Diagnosis:CPT Code(s): Echo Full (07403), Spectral Doppler (96855), Color Doppler (03694), Indication(s): Aortic stenosis Rhythm: Sinus HR BP [...] Hypokinetic Mid-Posterolateral Hypokinetic Mid-Inferior Hypokinetic Mid-Inferoseptal Hypokinetic [place]-Septal Hypokinetic [place]-Anterior Hypokinetic [place]-Lateral Hypokinetic [place]-Inferior Hypokinetic [place]-Tip Hypokinetic Chambers Value Units (Range) IVSd 2D [...] 01/23/2014 16:34:37 Images reviewed and interpretation verified [facility] Cardiac Ultrasound Laboratory Lee Kincaid MD ECHO ORDERABLES documented in this encounter Visit Diagnoses Diagnosis Cardiomyopathy Other primary cardiomyopathies SOB (shortness of breath) Shortness of breath documented in this encounter Administered Medications Inactive [...] Given 01/23/2014 10:46 AM EDT 25 mg sodium chloride 0.9% infusion 200 mL/hr, Intravenous, [...] Routine 1231 (Given - Provid er: Nitesh Stern RN) heparin (porcine) injection (CANCELED) ONCE PRN, Starting on Wed01/23/14 at 1131, Until Wed01/23/14 at 1224, Cath (Intra-Procedure), Routine 1131 (Given - Provid er: Nitesh Stern RN) iohexol (OMNIPAQUE) 350 mg iodine/mL injection (CANCELED) [...] RN) documented in this encounter Care Teams Mortgage Broker Relationship Specialty Start Date End Date Danni Laird APRN [address] [place] [address] PCP - General 01/23/14 11/11/14 documented as of this encounter
--- OUTSIDE RECORDS SUMMARY | 2024-02-15 14:11 | XMS_ITS | Encounter Summary ---
[place] [address] Care Team Providers Care Geology Associate Name Role Phone Deborah Quiroga ANURAG Primary Care Provider [phone] Reason for Visit * Reason Onset Date Comments Pre Procedure Call 06/18/2016 Encounter Details Date Type Department Care Team (Late st Contact Info) Description 06/18/2016 Telephone Hematology [place] [phone] Alexandrea Greenwood RN Pre Procedure Call Social History Tobacco Use Types Packs/Day Years [...] Telephone Encounter - Alexandrea Greenwood RN - 06/18/2016 4:19 PM EST Pt unable to have bmbx done at d/t insurance, bmbx OSC questionnaire not necessary. documented in this encounter Plan of Treatment Upcoming Encounters Date Type Department Care Team (Late st Contact Info) Description 02/22/2024 4:15 PM EDT Office Visit Dermatology at [address] [phone] Marek Bonilla MD [address] [facility] [place] [address] 06/05/2024 11:30 AM EST Office [place] [address] Magdalena Peralta MD [facility] [place] [address] documented as of this encounter Visit Diagnoses Not on filedocumented in this encounter Care Teams Geology Associate Relationship Specialty Start Date End Date Deborah Quiroga APRN PCP - General Family Medicine 03/24/16 02/04/23 documented as of this encounter
--- OUTSIDE RECORDS SUMMARY | 2024-02-15 14:11 | XMS_ITS | Encounter Summary ---
Author Organization [facility] Address [facility] [place] [address] Care Team Providers Care Registry Np Name Role Phone Ashley Quirogazac Shields APRN Primary Care Provider [phone] Encounter Details Date Type Department Care Team (Late st Contact Info) Description 05/19/2016 10:00 AM EDT Office [place] [address] Alirio Esparza MD [facility] [place] [address] Nonrheumatic aortic valve stenosis Social History Tobacco [...] Sign Reading Time Taken Comments Blood Pressure 130/84 05/19/2016 9:55 AM EDT Pulse 75 05/19/2016 9:55 AM EDT Temperature - - Respiratory Rate - - Oxygen Saturation 98% 05/19/2016 9:55 AM EDT Inhaled Oxygen Concentration - - Weight 94.3 kg (208 lb) 05/19/2016 9:55 AM EDT Height 157.5 cm (5' 2) 05/19/2016 9:55 AM EDT Body Mass Index 38.04 05/19/2016 9:55 AM EDT documented in this encounter Progress Notes * Alirio Esparza MD - 05/19/2016 10:00 AM EDT Please see my previous note for a detailed history of her H and P. Ms. Thacker has severe symptomatic aortic stenosis. She is here for her preop visit. She will be sent to the preadmission testing. We reviewed the risks and benefits of [...] to surgery to work up her neutropenia. I have called Ms. Thacker about this, and he will be in contact with her as well. documented in this encounter Plan of Treatment Upcoming Encounters Date Type Department Care Team (Late st Contact Info) Description 02/22/2024 4:15 PM EDT Office Visit Dermatology at [address] [address] Marek Bonilla MD [address] [facility] [place] [address] 06/05/2024 11:30 AM EST Office [place] [address] Magdalena Peralta MD [facility] [place] [address] documented as of this encounter Results * XR Chest PA [...] identified. Alirio Esparza MD IMG DX ORDERABLES * EKG 12 Lead (05/19/2016 11:43 AM EDT) Ventricular rate 72 BPM MUSE SYSTEM Atrial Rate 72 BPM MUSE SYSTEM P-R Interval 128 ms MUSE SYSTEM QRS Duration 92 ms MUSE SYSTEM Q-T Interval 410 ms MUSE SYSTEM QTC Calculated (Bezet) 448 ms MUSE SYSTEM Calculated P Erie 37 degrees MUSE SYSTEM Calculated R Erie 31 degrees MUSE SYSTEM Calculated T Erie 25 degrees MUSE SYSTEM INTERPRETATION Normal sinus rhythm Normal ECG No previous ECGs available Confirmed by MD Becca, Deangelo ([id number]) on 05/19/2016 5:23:33 PM MUSE SYSTEM 05/19/2016 11:4 3 AM EDT 05/19/2016 5:23 PM EDT Alirio Esparza MD ECG ORDERABLES MUSE SYSTEM * Basic Metabolic Panel (non-fasting) (05/19/2016 11:32 AM EDT) Glucose Lvl 86 65 - 199 mg/dL [facility] Comment:Diabetes: >=200 mg/d L plus symptoms BUN 13 8 - 18 mg/dL [facility] Creatinine 0.95 0.70 - 1.20 mg/dL [facility] Comment: Please note that the pediatric reference intervals supplied above were not validated at [facility]. Results from pediatric patients should [...] questions. Chloride 101 98 - 107 mmol/L [facility] CO2 27 22 - 31 mmol/L [facility] Anion Gap 12 5 - 15 mmol/L [facility] Calcium 10.1 8.5 - 10.5 mg/dL [facility] Estimated GFR 60 >=60 [facility] Comment: This [...] the following links into your internet browser. [email or web address] Blood specimen (specimen) 05/19/2016 11:32 AM EDT 05/19/2016 11:41 AM EDT Narrative Resulting Agency Comment Spec In Lab Alirio Esparza MD CHEMISTRY ORDERABLE S [facility] [place] [address] documented in this encounter Visit Diagnoses Diagnosis Nonrheumatic aortic valve stenosis Aortic valve disorders Nonrheumatic aortic valve stenosis Aortic valve disorders documented in this encounter Care Teams Registry Np Relationship Specialty Start Date End Date Deborah Quiroga APRN PCP - General Family Medicine 03/24/16 02/04/23 documented as of this encounter
--- OUTSIDE RECORDS SUMMARY | 2024-02-15 14:11 | XMS_ITS | Encounter Summary ---
Author Organization [facility] [place] [address] Care Team Providers Care Paper Ruler Name Role Phone Deborah Quiroga APRN Primary Care Provider [phone] Encounter Details Date Type Department Care Team (Late st Contact Info) Description 07/03/2016 External Results Hematology [place] [address] Matthew Cervantes, DO [address] [place] [address] Social History Tobacco Use Types Packs/Day Years [...] 4:15 PM EDT Office Visit Dermatology at [address] [phone] Marek Bonilla MD [address] [facility] DERMATOLOGY [place], [place] [phone] 06/05/2024 11:30 AM EST Office [place] [phone] Magdalena Peralta MD [facility] [place] [address] documented as of this encounter Procedures Procedure Name Priority Date/Time Associated Diagnosis Comments BONE MARROW ASPIRATION PERFO RMED WITH BONE MARRROW BIOPSY Routine 06/28/2016 documented in this encounter Results * BONE MARROW ASPIRATION PREFORMED WITH BONE MARRROW BIOPSY (06/28/2016) Matthew Cervantes DO GENERAL SURGI DANIEL ORDERABLES documented in this encounter Visit Diagnoses Not on filedocumented in this encounter Care Teams Paper Ruler Relationship Specialty Start Date End Date Deborah Quiroga APRN PCP - General Family Medicine 03/24/16 02/04/23 documented as of this encounter
--- OUTSIDE RECORDS SUMMARY | 2024-02-15 14:11 | XMS_ITS | Encounter Summary ---
Author Organization [facility] Address [facility] [place] [address] Care Team Providers Care Systems Security Analyst Name Role Phone Danni Laird APRN Primary Care Provider [phone] Encounter Details Date Type Department Care Team (Late st Contact Info) Description 01/23/2014 Orders Only Cardiology at [address] [phone] Lee Kincaid MD [facility] [place] [address] SOB (shortness of breath) (Primary Dx) Social History Tobacco Use Types [...] 4:15 PM EDT Office Visit Dermatology at [address] [place] [phone] Marek Bonilla MD [address] [facility] DERMATOLOGY [place], [place] [phone] 06/05/2024 11:30 AM EST Office [place] [phone] Magdalena Peralta MD [facility] [place] [address] documented as of this encounter Results * Echocardiogram Transthoracic(Leb) (01/23/2014 3:17 PM EDT) EF 50 HEARTLAB SYSTEM Anatomical Region Laterality Modality Other 01/23/2014 Narrative 01/23/2014 4:35 PM EDT Procedure: ? Transthoracic Echocardiogram Patient: ? ANDREW ECHOLS M ?(Age): 1955(58) Med Rec#: ?[id number] ? Sex: ?F ? Site Loc: ?[facility] ? Ht / Wt: ??158(cm)/93(kg) Pt. Loc: ? Adult Floor ?BSA: ?2.02 Study Date: ?01/23/2014 ? Pt. Type: Inpatient Tape: ? Referring: Lee Kincaid ([id number]) Referring: ANNALISA Drawing Machine Operator: Miguel Beverly Diagnosis:CPT Code(s): ??Echo Full (55428), ??Spectral Doppler (39038), Color Doppler (17570), Indication(s): ??Aortic stenosis Rhythm: Sinus HR ?BP [...] ? Mid-Inferior ?Hypokinetic ? Mid-Inferoseptal ?Hypokinetic ? [place]-Septal ? Hypokinetic ? [place]-Anterior ? Hypokinetic ? [place]-Lateral ?Hypokinetic ? [place]-Inferior ? Hypokinetic ? [place]-Tip ?Hypokinetic ? Chambers ?Value ?Units (Range) ? [...] 01/23/2014 16:34:37 Images reviewed and interpretation verified [facility] Cardiac Ultrasound Laboratory Procedure Note Lee Kincaid MD - 01/23/2014 Procedure: Transthoracic Echocardiogram Patient: ANDREW Mejias (Age): 1955(58) Med Rec#: [id number] Sex: F Site Loc: [facility] Ht / Wt: 158(cm)/93(kg) Pt. Loc: Adult Floor BSA: 2.02 Study Date: 01/23/2014 Pt. Type: Inpatient Tape: Referring: Lee Kincaid ([id number]) Referring: ANNALISA Drawing Machine Operator: Miguel Beverly Diagnosis:CPT Code(s): Echo Full (03239), Spectral Doppler (01600), Color Doppler (01456), Indication(s): Aortic stenosis Rhythm: Sinus HR BP [...] Hypokinetic Mid-Posterolateral Hypokinetic Mid-Inferior Hypokinetic Mid-Inferoseptal Hypokinetic [place]-Septal Hypokinetic Crane-Anterior Hypokinetic Crane-Lateral Hypokinetic Crane-Inferior Hypokinetic Crane-Tip Hypokinetic Chambers Value Units (Range) IVSd 2D [...] 01/23/2014 16:34:37 Images reviewed and interpretation verified [facility] Cardiac Ultrasound Laboratory Lee Kincaid MD ECHO ORDERABLES documented in this encounter Visit Diagnoses Diagnosis SOB (shortness of breath)- Primary Shortness of breath documented in this encounter Care Teams Systems Security Analyst Relationship Specialty Start Date End Date Danni Laird APRN [address] [facility] [place] [address] PCP - General 01/23/14 11/11/14 documented as of this encounter
[2024-02-17 14:18] VITALS: BP 104/57; PULSE 69
--- OUTSIDE RECORDS SUMMARY | 2024-02-17 14:22 | XMS_ITS | Clinical Summary ---
Author Organization [facility] Address [address] [place] [address] Care Team Providers Care Hopper Attendant Name Role Phone Ashley Chavez Primary Care Provider [phone] Social History Tobacco Use Types Packs/Day Years [...] COVID-19 Vaccine (2022-24 season) 2023 Care Teams Hopper Attendant Relationship Specialty Start Date End Date Ashley Chavez ARNP [address] [place] [address] PCP - General 07/11/10
--- OUTSIDE RECORDS SUMMARY | 2024-02-17 14:22 | XMS_ITS | Encounter Summary ---
Author Organization [facility] Address [address] [place] [address] Care Team Providers Care Trolley Car Mechanic Name Role Phone Ashley Chavez Primary Care Provider Encounter Details Date Type Department Care Team (Late st Contact Info) Description 01/07/2023 Lab Requisition [facility] Pathology & Laboratory Medicine - [address] [address] Outr Resulting Lab, Provider Social History Tobacco [...] 56.2 55.8 - 66.1 % 01/08/2023 11:28 [facility] Albumin g/dL 3.9 3.6 - 5.2 g/dL 01/08/2023 11:28 [facility] Alpha-1 % 5.1(H) 2.9 - 4.9 % 01/08/2023 11:28 [facility] Alpha-1 g/dL 0.40 0.15 - 0.40 g/dL 01/08/2023 11:28 [facility] Alpha-2 % 7.0(L) 7.1 - 11.8 % 01/08/2023 11:28 [facility] Alpha-2 g/dL 0.50 0.50 - 1.00 g/dL 01/08/2023 11:28 [facility] Beta % 12.7 8.4 - 13.1 % 01/08/2023 11:28 [facility] Beta g/dL 0.90 0.60 - 1.20 g/dL 01/08/2023 11:28 [facility] Gamma % 19.0(H) 11.1 - 18.8 % 01/08/2023 11:28 [facility] Gamma g/dL 1.30 0.60 - 1.60 g/dL 01/08/2023 11:28 [facility] SPEP Comment No apparent monoclonal protein seen on serum electrophoresis 01/08/2023 11:28 [facility] Comment:See scanned/suppleme ntary report. Total Protein 6.9 6.3 - 8.2 g/dL 01/08/2023 11:28 [facility] Blood VENOUS BLOOD / Unknown 01/06/2023 14:40 EDT 01/07/2023 17:37 EDT Provider Outr Resulting Lab CHEMISTRY & BLOOD GAS ORDERABLES Performing Organization Address City/State/[facility] Co de Phone Number [facility] [address] [place] [address] * PROTEIN, TOTAL (01/06/2023 14:40 EDT) Blood VENOUS BLOOD / Unknown 01/06/2023 14:40 EDT 01/07/2023 17:37 EDT Provider Outr Resulting Lab CHEMISTRY & BLOOD GAS ORDERABLES Performing Organization Address [facility] Co de Phone Number [facility] [address] [place] [address] * (ABNORMAL) EXTRACTABLE NUCLEAR ANTIGEN PANEL (01/06/2023 14:40 EDT) SSA Antibody 1.3 <20.0 Units 01/08/2023 15:42 EDT [facility] Comment: ? [...] Antibody 1.5 <20.0 Units 01/08/2023 15:42 EDT [facility] Comment: ? [...] Antibody 15.3 <20.0 Units 01/08/2023 15:42 EDT [facility] Comment: ? Negative: <20.0 Units ? Weak Positive: 20.0 - 39.9 Units ? Moderate Positive: 40.0 - 80.0 Units ? Strong Positive: >80.0 Units Results were obtained with the [employer] QUANTA Lite Sm DOMO. ??Sm values obtained with different manufacturers' assay methods may not be used interchangeably. ??The magnitude of the reported IgG levels cannot be correlated to an endpoint titer. AFFIRMATIVE ACTION OFFICER Antibody 149.1(H) <20.0 Units 01/08/2023 15:42 EDT [facility] Comment: ? Negative: <20.0 Units ? Weak Positive: 20.0 - 39.9 Units ? Moderate Positive: 40.0 - 80.0 Units ? Strong Positive: >80.0 Units Results were obtained with the [employer] Quanta Lite AFFIRMATIVE ACTION OFFICER DOMO. AFFIRMATIVE ACTION OFFICER values obtained with different wrapper sizer's assay methods may not be used interchangeaby. ??The magnitude of the reported IgG levels cannot be be correlated to an endpoint titer. A positive result in the Quanta Lite AFFIRMATIVE ACTION OFFICER DOMO indicates the presence of antibodies reactive with the AFFIRMATIVE ACTION OFFICER/Sm complex but cannot distinguish between anti-Sm and anti-AFFIRMATIVE ACTION OFFICER activity. Blood VENOUS BLOOD / Unknown 01/06/2023 14:40 EDT 01/07/2023 17:37 EDT Provider Outr Resulting Lab IMMUNOLOGY A ND SEROLOGY ORDERABLES [facility] [address] [place] [address] * (ABNORMAL) ANTI NUCLEAR AB (FRANCISCO), IFA (01/06/2023 14:40 EDT) FRANCISCO Interpretation Positive(A) Negative 01/08/2023 15:22 EDT [facility] Comment: Result is equal to or greater than 1:5120. For titers greater than or equal to 1:160 (except the centromere, nucleolar, and dense fine speckled patterns) it is recommended that specific, follow-up autoantibody testing (such as for dsDNA and Extractable Nuclear Antigens) be performed on all diffuse and/or speckled patterns. FRANCISCO Titer and Pattern 1 1:5120 Speckled 01/08/2023 15:22 EDT [facility] Blood VENOUS BLOOD / Unknown 01/06/2023 14:40 EDT 01/07/2023 17:37 EDT Narrative [facility] - 01/08/2023 15:22 EDT Results were obtained with the [employer] NOVA Lite HEp-2 FRANCISCO Kit by indirect immunofluorescence. Provider Outr Resulting Lab IMMUNOLOGY A ND SEROLOGY ORDERABLES Performing Organization Address City/State/[facility] Co de Phone Number [facility] [address] [place] [address] documented in this encounter Visit Diagnoses Not on filedocumented in this encounter Care Teams Trolley Car Mechanic Relationship Specialty Start Date End Date Ashley Chavez ARNP [address] [place] [address] PCP - General 07/11/10 documented as of this encounter
--- OUTSIDE RECORDS SUMMARY | 2024-02-17 14:22 | XMS_ITS | Encounter Summary ---
Author Organization [facility] Address [address] [place] [address] Care Team Providers Care Direct Mail Clerk Name Role Phone Scott, Ashley WILLIAM Primary Care Provider [phone] Encounter Details Date Type Department Care Team (Late st Contact Info) Description 12/23/2016 Results Only [facility]- [facility] [phone] Deborah Quiroga, AVIONICS INTEGRATION ENGINEER [address] [place] [address] [phone] Social History Tobacco Use Types Packs/Day Years [...] ? 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 Accession #: ? [id number] ? : ? 1955 (Age: 61) ??F ?Collect Date: ? 12/23/2016 ? Location: ? [facility] ? Receive Date: ? 12/25/2016 ? Provider: DEBORAH QUIROGA SPIN TABLE OPERATOR Copy to: ? Final Report SPECIMEN ADEQUACY ? Satisfactory for Evaluation - transformation zone component present GENERAL CATEGORIZATION ? Negative for Intraepithelial Lesion or Malignancy ?? Last Menstrual Period: years Specimen/Source: ??Pap Test, Cervix, ThinPrep Imaging System with manual evaluation Document reviewed and electronically signed by: ? Monica Cason [facility](ASCP) ? Report ??Date: 01/06/2017 09:11 HPV with Pap Test ? Date Ordered: ? 01/06/2017 ? Status: ?? Signed Out ?Date Complete: ? 01/07/2017 ? By: ??System Interface ? Date Reported: ? 01/07/2017 ? Interpretation RESULT: Negative for HPV. No E6 or E7 mRNA is detected from HPV types 16,18,31,33,35, 39,45,51,52,56,58, 59,66, and 68 by instrument technologist mediated amplification. Comments Document reviewed and electronically signed by: ? System Interface ? Report date: 01/07/2017 By the signature above, the attending physician certifies that he/she has personally conducted a gross and/or microscopic examination of the described specimens and rendered or confirmed the above diagnosis. End of Report [facility] 12/23/2016 12/25/2016 Deborah Quiroga AVIONICS INTEGRATION ENGINEER PATHOLOGY ORDERABLES [facility] [address] [place] [address] documented in this encounter Visit Diagnoses Not on filedocumented in this encounter Care Teams Direct Mail Clerk Relationship Specialty Start Date End Date Ashley Chavez ARNP [address] [place] [address] PCP - General 07/11/10 documented as of this encounter
--- OUTSIDE RECORDS SUMMARY | 2024-02-17 14:22 | XMS_ITS | Encounter Summary ---
Author Organization [facility] Address [address] [place] [address] Care Team Providers Care Claim Specialist Name Role Phone Ashley Chavez Primary Care Provider [phone] Encounter Details Date Type Department Care Team (Late st Contact Info) Description 05/12/2022 Lab Requisition [facility] Pathology & Laboratory Medicine - [address] [id number] Outr Resulting Lab, Provider Social History Tobacco [...] 14:32 EDT) Hold Hold 05/12/2022 22:46 EDT [facility] Blood VENOUS BLOOD / Unknown 05/12/2022 14:32 EDT 05/12/2022 21:40 EDT Provider Outr Resulting Lab LAB INFO SER VICE AND SUPPORT & PHONE RESULT Performing Organization Address [facility]/ZIP Co de Phone Number [facility] [address] [place] [address] * (ABNORMAL) HOMOCYSTEINE (05/12/2022 14:32 EDT) Homocysteine 14.7(H) 5.0 - 13.9 umol/L 05/13/2022 9:05 EDT [facility] Comment:Results may be false ly elevated if sample is not collected on ice or is not removed from cells within 1 hour of collection. Blood VENOUS BLOOD / Unknown 05/12/2022 14:32 EDT 05/12/2022 21:40 EDT Narrative [facility] - 05/13/2022 9:05 EDT Reference [...] & BLOOD GAS ORDERABLES Performing Organization Address [facility] Co de Phone Number [facility] [address] [place] [address] * HAPTOGLOBIN (05/12/2022 14:32 EDT) Pathologist [facility] Haptoglobin 138 32 - 197 mg/dL 05/13/2022 9:55 EDT [facility] Blood VENOUS BLOOD / Unknown 05/12/2022 14:32 EDT 05/12/2022 21:36 EDT Provider Outr Resulting Lab CHEMISTRY & BLOOD GAS ORDERABLES Performing Organization Address [facility] Co de Phone Number [facility] [address] [place] [address] * (ABNORMAL) ANTI NUCLEAR AB (FRANCISCO), IFA (05/12/2022 14:32 EDT) FRANCISCO Interpretation Positive(A) Negative 05/13/2022 14:44 EDT [facility] Comment: Result is equal to or greater than 1:5120. For titers greater than or equal to 1:160 (except the centromere, nucleolar, and dense fine speckled patterns) it is recommended that specific, follow-up autoantibody testing (such as for dsDNA and Extractable Nuclear Antigens) be performed on all diffuse and/or speckled patterns. FRANCISCO Titer and Pattern 1 1:5120 Speckled 05/13/2022 14:44 EDT [facility] Blood VENOUS BLOOD / Unknown 05/12/2022 14:32 EDT 05/12/2022 21:36 EDT Narrative [facility] - 05/13/2022 14:44 EDT Results were obtained with the INOVA NOVA Lite HEp-2 FRANCISCO Kit by indirect immunofluorescence. Provider Outr Resulting Lab IMMUNOLOGY A ND SEROLOGY ORDERABLES [facility] [address] [place] [address] documented in this encounter Visit Diagnoses Not on filedocumented in this encounter Care Teams Claim Specialist Relationship Specialty Start Date End Date Ashley Chavez ARNP [address] [place] [address] PCP - General 07/11/10 documented as of this encounter
--- OUTSIDE RECORDS SUMMARY | 2024-02-17 14:22 | XMS_ITS | Encounter Summary ---
Author Organization [facility] Address [address] [place] [address] Care Team Providers Care Rubber Cutter Name Role Phone Unavailable Primary Care Provider Unavailabl e Encounter Details Date Type Department Care Team (Late st Contact Info) Description 07/08/2010 10:55 EST - 07/08/2010 10:56 EST Hospital Encounter [facility] - Other [address] [place] [address] Ashley Chavez, WILLIAM [address] [place] [address] Discharge Disposition: Home or Self Care Social [...]
--- OUTSIDE RECORDS SUMMARY | 2024-02-17 14:22 | XMS_ITS | Encounter Summary ---
Author Organization [facility] Address [address] [place] [address] Care Team Providers Care Change Agent Name Role Phone Scott Ashley WILLIAM Primary Care Provider [phone] Encounter Details Date Type Department Care Team (Late st Contact Info) Description 05/12/2019 Results Only [facility]- [facility] [phone] Nadira Gregorio MD [address] [place] [phone] Social History Tobacco Use Types Packs/Day [...] ? 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 Accession #: ? [id number] ? : ? 1955 (Age: 63) ??F ? Collect Date: ? 05/12/2019 ? Location: ? [facility] ? Receive Date: ? 05/12/2019 ? Provider: NADIRA GREGORIO MD Copy to: WINTER HANKINS SEMICONDUCTOR PACKAGES SEALER ? Final Pathologic Diagnosis: COLON, CECUM, POLYP, [...] (ASCP) 05/12/2019 6:08 PM End of Report [facility] 05/12/2019 16:0 3 EDT 05/12/2019 16:03 EDT Nadira Gregorio MD PATHOLOGY ORDERABLES [facility] [address] [place] [address] documented in this encounter Visit Diagnoses Not on filedocumented in this encounter Care Teams Change Agent Relationship Specialty Start Date End Date Ashley Chavez ARNP [address] [place] [address] PCP - General 07/11/10 documented as of this encounter
--- OUTSIDE RECORDS SUMMARY | 2024-02-17 14:22 | XMS_ITS | Encounter Summary ---
Author Organization [facility] Address [address] [place] [address] Care Team Providers Care Tobacco Warehouse Agent Name Role Phone Unavailable Primary Care Provider Unavailabl e Encounter Details Date Type Department Care Team (Late st Contact Info) Description 03/24/2007 Results Only [facility] Non-Invasive Cardiology - [facility] [address] [place], [place] [address] Ashley Chavez ARNP [address] [place] [address] Social History Tobacco Use Types Packs/Day Years [...] ? 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 Accession #: ? [id number] : ? 1955 (Age: 51) ??F ?Collect Date: ? 03/24/2007 Location: ? [facility] ? Receive Date: ? 03/28/2007 Provider: ?ASHLEY THOMAS Copy to: ? Specimen/Source: ?ThinPrep Pap Test, Endocervix, processed on [facility] ThinPrep Imaging System, with manual evaluation Last [...] Ashley THOMAS PATHOLOGY ORDERABLES [facility] [address] [place] [address] documented in this encounter Visit Diagnoses Not on filedocumented in this encounter
--- OUTSIDE RECORDS SUMMARY | 2024-02-17 14:22 | XMS_ITS | Encounter Summary ---
Author Organization [facility] Address [address] [place] [address] Care Team Providers Care Railroad Supervisor Of Engines Name Role Phone Unavailable Primary Care Provider Unavailabl e Encounter Details Date Type Department Care Team (Late st Contact Info) Description 06/29/2007 Results Only [facility] - [facility] [address] [place] [address] Sánchez Acevedo MD [address] [place] [address] Social History Tobacco Use Types Packs/Day Years [...] ? 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 Accession #: ? [id number] ? : ? 1955 (Age: 51) ??F [...] covered by a smooth white serosa. ??Three quality audit representative sections of the gallbladder are submitted in one cassette. ??([facility] End of Report [facility] 06/29/2007 06/29/2007 21: 23 EST Sánchez Acevedo MD PATHOLOGY ORDERABLE [facility] [address] [place] [address] documented in this encounter Visit Diagnoses Not on filedocumented in this encounter
--- OUTSIDE RECORDS SUMMARY | 2024-02-17 14:22 | XMS_ITS | Encounter Summary ---
Author Organization [facility] Address [address] [place] [address] Care Team Providers Care Mill Hand Name Role Phone Unavailable Primary Care Provider Unavailabl e Encounter Details Date Type Department Care Team (Late st Contact Info) Description 07/08/2010 Results Only [facility] Non-Invasive Cardiology - [facility] [address] [place] [address] Ashley Chavez, WILLIAM [address] [place] [address] Social History Tobacco Use Types Packs/Day Years [...] ? 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 Accession #: ? [id number] ? : ? 1955 (Age: 54) ??F [...] Ashley THOMAS PATHOLOGY ORDERABLES [facility] [address] [place] [address] documented in this encounter Visit Diagnoses Not on filedocumented in this encounter
--- OUTSIDE RECORDS SUMMARY | 2024-02-17 14:22 | XMS_ITS | Referral Summary ---
Author Organization [facility] Address [address] [place] [address] Care Team Providers Care Splitter Machine Name Role Phone Ashley Chavez Primary Care Provider [phone] Social History Tobacco Use Types Packs/Day Years Used Date Smoking Tobacco: Never Assessed Interpersonal Safety Answer Date Record ed Physically Hurt Never 03/03/2020 Verbally Threaten Not on file 03/03/2020 Sex and Gender Information Value Date Recorded Sex Assigned at Not on file Gender Identity Not on file Sexual Orientation Not on file Plan of Treatment Not on file Care Teams Splitter Machine Relationship Specialty Start Date End Date Ashley Chavez ARNP [address] [place] [address] PCP - General 07/11/10
--- OUTSIDE RECORDS SUMMARY | 2024-02-17 14:22 | XMS_ITS | Encounter Summary ---
Author Organization [facility] Address [address] [place] [address] Care Team Providers Care Community Relations Coordinator Name Role Phone Ashley Chavez Primary Care Provider [phone] Encounter Details Date Type Department Care Team (Late st Contact Info) Description 06/23/2016 Results Only [facility]- [facility] [phone] Matthew Acevedo, DO [address] [facility] [address] [place] [address] Social History Tobacco Use Types Packs/Day [...] ? 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 Accession #: ? [id number] : ? 1955 (Age: 60) ??F ?Collect Date: ? 06/23/2016 Location: ? [facility] ? Receive Date: ? 06/24/2016 Provider: ? MATTHEW ACEVEDO DO Copy to: ?WINTER TITUSP MARIO ALBERTO GATES MD ? INTERPRETATION: Normal female karyotype. There is no cytogenetic evidence of a clonal population. ? Document reviewed and electronically signed by: ? ELDA LIMA MD ? Report Date: ??07/03/2016 12:44 CLINICAL HISTORY: 60 yo female with leukopenia SPECIMEN: Bone marrow TEST PERFORMED: G-banded Karyotype ?? REPORT: No. Cells Counted: ??25 No. Cells Analyzed: ??25 No. Cells Karyotyped: ??25 Band Resolution: ??400 ?? KARYOTYPE: 46,XX[25] End of Report [facility] 06/23/2016 06/24/2016 Matthew Acevedo DO PATHOLOGY ORDER JODIE [facility] [address] [place] [address] * FLOW CYTOMETRY (06/23/2016 0:00 EST) Pathology Report: FLOW CYTOMETRY REPORT Reports generated via electronic interface contain original data; however they are lacking the format of the original report. Caution should be taken when reading/interpreting unformatted reports. Name: ? 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 Accession #: ? [id number] : ? 1955 (Age: 60) ??F ?Collect Date: ? 06/23/2016 00:00 Location: ? [facility] ? Receive Date: ? 06/24/2016 08:00 Provider: ?MATTHEW ACEVEDO DO Copy to: ?WINTER HANKINS SECURITY COORDINATOR MARIO ALBERTO RAMOS MD ? FINAL IMMUNOPHENOTYPIC INTERPRETATION: ? Bone marrow, flow cytometric analysis: -No immunophenotypic evidence of a clonal cell population. ??See comment. ? COMMENT: The results of flow cytometry show no immunophenotypic evidence of involvement by a clonal lymphoproliferative or myeloproliferative disorder. ??Correlation of these findings with morphologic and clinical data is essential. ??Please refer to pathology report number [id number] for morphologic details. ? Document reviewed and [...] the Department of Pathology and Laboratory Medicine, [place], [place] ??It has not been cleared or [...] clinical laboratory testing. End of Report ?? [facility] 06/23/2016 06/24/2016 8:0 0 EST Matthew Acevedo DO PATHOLOGY ORDER JODIE [facility] [address] [place] [address] * BONE MARROW/HEMPATH CONSULT (06/23/2016 0:00 EST) Pathology Report: BONE MARROW REPORT Reports generated via electronic interface contain original data; however they are lacking the format of the original report. Caution should be taken when reading/interpreting unformatted reports. Name: ? 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 Accession #: ? [id number] : ? 1955 (Age: 60) ??F ?Collect Date: ? 06/23/2016 Location: ? [facility] ? Receive Date: ? 06/24/2016 Provider: ? MATTHEW ACEVEDO DO Copy to: ?WINTER HANKINS SECURITY COORDINATOR MARIO ALBERTO RAMOS MD ? DIAGNOSIS: Peripheral [...] #1: Aggregate biopsy length: 8 mm with children's tutor trabeculae of lamellar bone, cellular bone marrow, [...] SEE ABOVE DISCUSSION Lambda (polyclonal, Dako) ??(B1): [place] (polyclonal, Dako) ??(B1): Biopsy (decalcified) #2: Aggregate biopsy length: 8 mm with children's tutor trabeculae of lamellar bone, cellular bone marrow, [...] (M115, Leica) ??(B2): Lambda (polyclonal, Dako) ??(B2): [place] (polyclonal, Dako) ??(B2): NOTE: ??One or more [...] performance characteristics have been determined by [facility]. ??The positive and negative controls worked [...] ? 1% Blasts ?1% Special Studies Cytogenetics ([id number]): Pending. Flow Cytometry ([id number]): No immunophenotypic evidence of a clonal cell population. ? End of Report [facility] 06/23/2016 06/24/2016 Matthew Acevedo DO PATHOLOGY ORDER JODIE [facility] [address] [place] [address] documented in this encounter Visit Diagnoses Not on filedocumented in this encounter Care Teams Community Relations Coordinator Relationship Specialty Start Date End Date Ashley Chavez ARNP [address] [place] [address] PCP - General 07/11/10 documented as of this encounter
--- OUTSIDE RECORDS SUMMARY | 2024-02-17 14:22 | XMS_ITS | Encounter Summary ---
Author Organization [facility] Address [address] [place] [address] Care Team Providers Care Heel Seat Fitter Machine Name Role Phone Ashley Chavez Primary Care Provider Encounter Details Date Type Department Care Team (Late st Contact Info) Description 04/29/2022 Lab Requisition [facility] Pathology & Laboratory Medicine - [address] [address] Outr Resulting Lab, Provider Social History Tobacco [...] Antibody 1.6 <20.0 Units 04/30/2022 12:23 EDT [facility] Comment: ? Negative: <20.0 [...] A ND SEROLOGY ORDERABLES Performing Organization Address [facility] de Phone Number [facility] [address] [place] [address] * SSA ANTIBODIES BY DOMO (04/29/2022 7:51 EDT) SSA Antibody 1.5 <20.0 Units 04/30/2022 12:22 EDT [facility] Comment: ? Negative: <20.0 [...] A ND SEROLOGY ORDERABLES Performing Organization Address [facility] de Phone Number [facility] [address] [place] [address] documented in this encounter Visit Diagnoses Not on filedocumented in this encounter Care Teams Heel Seat Fitter Machine Relationship Specialty Start Date End Date Ashley Chavez ARNP [address] [place] [address] PCP - General 07/11/10 documented as of this encounter
--- OUTSIDE RECORDS SUMMARY | 2024-02-17 14:22 | XMS_ITS | Encounter Summary ---
Author Organization [facility] Address [address] [place] [address] Care Team Providers Care Crisis Mental Health Therapist Name Role Phone Ashley Chavez Primary Care Provider [phone] Encounter Details Date Type Department Care Team (Latest Contact Info) Description 05/12/2019 13:18 EDT - 05/12/2019 23:59 EDT Hospital Encounter [address] [address] Unknown, Provider, Discharge Disposition: Home or Self Care Social History Tobacco Use Types Packs/Day Years Used Date Smoking Tobacco: Never Assessed Sex and Gender Information Value Date Recorded Sex Assigned at Not on file Gender Identity Not on file Sexual Orientation Not on file documented as of this encounter Discharge Disposition Disposition Code Departure Means Destination Home or Self Retirement documented in this encounter Plan of Treatment Not on file documented as of this encounter Visit Diagnoses Not on filedocumented in this encounter Care Teams Crisis Mental Health Therapist Relationship Specialty Start Date End Date Ashley Chavez ARNP [address] [place] [address] PCP - General 07/11/10 documented as of this encounter
--- OUTSIDE RECORDS SUMMARY | 2024-02-17 14:22 | XMS_ITS | Encounter Summary ---
Author Organization [facility] Address [address] [place] [address] Care Team Providers Care Vp Of Product Name Role Phone Ashley Chavez Primary Care Provider Encounter Details Date Type Department Care Team (Late st Contact Info) Description 12/17/2021 Lab Requisition [facility] Pathology & Laboratory Medicine - [address] [id number] Outr Resulting Lab, Provider Social History Tobacco [...] Lyme Ab Negative Negative 12/18/2021 10:37 EDT [facility] Blood VENOUS BLOOD / Unknown 12/17/2021 13:30 EDT 12/17/2021 21:32 EDT Provider Outr Resulting Lab IMMUNOLOGY A ND SEROLOGY ORDERABLES Performing Organization Address [facility] Co de Phone Number [facility] [address] [place] [address] * (ABNORMAL) ANTI NUCLEAR AB (FRANCISCO), IFA (12/17/2021 13:30 EDT) FRANCISCO Interpretation Positive(A) Negative 12/18/2021 16:06 EDT [facility] Comment: For titers greater [...] Pattern 1 1:1280 Speckled 12/18/2021 16:06 EDT [facility] Blood VENOUS BLOOD / Unknown 12/17/2021 13:30 EDT 12/17/2021 21:32 EDT Narrative [facility] - 12/18/2021 16:06 EDT Results were obtained with the INOVA NOVA Lite HEp-2 FRANCISCO Kit by indirect immunofluorescence. Provider Outr Resulting Lab IMMUNOLOGY A ND SEROLOGY ORDERABLES Performing Organization Address [facility] Co de Phone Number [facility] [address] [place] [address] documented in this encounter Visit Diagnoses Not on filedocumented in this encounter Care Teams Vp Of Product Relationship Specialty Start Date End Date Ashley Chavez ARNP [address] [place] [address] PCP - General 07/11/10 documented as of this encounter
--- OUTSIDE RECORDS SUMMARY | 2024-02-17 14:22 | XMS_ITS | Encounter Summary ---
Author Organization [facility] Address [address] [place] [address] Care Team Providers Care Line Producer Name Role Phone Ashley Chavez Primary Care Provider [phone] Encounter Details Date Type Department Care Team (Late st Contact Info) Description 10/30/2022 Lab Requisition [facility] Pathology & Laboratory Medicine - [address] [address] Outr Resulting Lab, Provider Social History Tobacco [...] Stranded) <12.3 <30.0 IU/mL 11/03/2022 13:08 EDT [facility] Comment: ? Negative: ??<30.0 IU/mL ? Borderline Positive: ??30.0 - 75.0 IU/mL ? Positive: ??>75.0 IU/mL Results were obtained with the INOVA QUANTA Lite dsDNA SC DOMO assay on the [employer]It[employer] DSX. Blood VENOUS BLOOD / Unknown 10/29/2022 14:00 EDT 10/30/2022 19:27 EDT Provider Outr Resulting Lab IMMUNOLOGY A ND SEROLOGY ORDERABLES Performing Organization Address [facility] de Phone Number [facility] [address] [place] [address] * SM ([place]) ANTIBODY (10/29/2022 14:00 EDT) [facility] SM ([place]) Antibody 18.5 <20.0 Units 11/03/2022 14:26 EDT [facility] Comment: ? Negative: [...] A ND SEROLOGY ORDERABLES Performing Organization Address [facility] de Phone Number [facility] [address] [place] [address] documented in this encounter Visit Diagnoses Not on filedocumented in this encounter Care Teams Line Producer Relationship Specialty Start Date End Date Ashley Chavez ARNP [address] [place] [address] PCP - General 07/11/10 documented as of this encounter
--- OUTSIDE RECORDS SUMMARY | 2024-02-17 14:22 | XMS_ITS | Encounter Summary ---
Author Organization [facility] Address [address] [place] [address] Care Team Providers Care Plant Maintenance Manager Name Role Phone Scott Ashley WILLIAM Primary Care Provider [phone] Encounter Details Date Type Department Care Team (Late st Contact Info) Description 11/10/2013 Results Only [facility] [phone] Jeni Laird, ENTRY WRITER [address] [place], [place] [id number] Social History Tobacco Use Types Packs/Day Years [...] ? 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 Accession #: ? [id number] : ? 1955 (Age: 58) ??F ?Collect Date: ? 11/10/2013 Location: ? [facility] ? Receive Date: ? 11/14/2013 Provider: ?JENI LAIRD ENTRY WRITER Copy to: ? Specimen/Source: ?Pap Test, Endocervix, [...] Report PAUL ARELLANO 11/10/2013 11/14/2013 Jeni Laird ENTRY WRITER PATHOLOGY ORDERAB LES Performing Organization Address City/State/[facility] Co de Phone Number PAUL ARELLANO [address] [place] [address] documented in this encounter Visit Diagnoses Not on filedocumented in this encounter Care Teams Plant Maintenance Manager Relationship Specialty Start Date End Date Ashley Chavez ARNP [address] [place] [address] PCP - General 07/11/10 documented as of this encounter
--- OUTSIDE RECORDS SUMMARY | 2024-02-17 14:23 | XMS_ITS | Encounter Summary ---
[place] [address] Care Team Providers Care Medicaid Billing Specialist Name Role Phone Magdalena Acosta MD Primary Care Provider [phone] Encounter Details Date Type Department Care Team (Latest Contact Info) Description 07/08/2023 12:35 PM EST Laboratory Appointment Lab [address] [place] [address] S/P TAVR (transcatheter aortic valve [...] EDT Office Visit Dermatology at [place] [address] [facility] [place] [phone] Marek Bonilla MD [address] [facility] [place] [address] 06/05/2024 11:30 AM EST Office [place] [phone] Magdalena Peralta MD [facility] [place] [address] documented as of this encounter Procedures Procedure [...] 11:56 AM EST) Neutrophils % 73.2 % [facility] Neutr Abs (ANC) 3.40 1.70 - 6.10 x10(3)/mc L [facility] Lymphocytes % 16.1 % [facility] Lymphocytes Abs 0.8(L) 0.9 - 3.2 x10(3)/mc L [facility] Monocytes % 9.7 % [facility] Monocyte Abs 0.4 0.3 - 0.9 x10(3)/mc L [facility] Eosinophils % 0.4 % [facility] Eosinophils Abs 0.0 0.0 - 0.4 x10(3)/mc L [facility] Basophils % 0.4 % [facility] Basophils Abs 0.0 0.0 - 0.1 x10(3)/mc L [facility] Immature Gran % 0.20 % [facility] Comment: Immature granulocytes(IG's)percentage and absolute count will include metamyelocytes, myelocytes, and promyelocytes. Blood smears from CBCs yielding IG's will be scanned manually for concordance. If this scan disagrees with the automated IG or if promyelocytes are noted, a manual differential will be performed. Amanda Gran Abs 0.01 0.00 - 0.04 x10(3)/mc L [facility] Blood 07/08/2023 11:5 6 AM EST 07/08/2023 12:02 PM EST Narrative Resulting Agency Comment Spec In Lab Minh TOBAR HEMATOLOGY ORDERABLE S [facility] [place] [address] * (ABNORMAL) Hemogram (07/08/2023 11:56 AM EST) WBC 4.6 4.0 - 9.5 x10(3)/[facility] RBC 3.34(L) 4.00 - 5.21 x10(6)/[facility] Hemoglobin 11.0(L) 11.7 - 15.5 g/dL [facility] Hematocrit 33.2(L) 35.7 - 45.8 % [facility] MCV 99.4(H) 82.6 - 94.4 fL [facility] MCH 32.9(H) 27.1 - 32.0 pg [facility] MCHC 33.1 31.7 - 35.0 g/dL [facility] Platelets 166 145 - 357 x10(3)/[facility] RDWSD 47.1(H) 37.0 - 46.0 fL [facility] RDWCV 13.0 11.5 - 14.1 % [facility] MPV 9.0 7.6 - 12.9 [facility] nRBC % Auto 0.0 % [facility] nRBC Abs Auto 0.000 0.000 - 0.000 x10(3)/mcL [facility] Blood 07/08/2023 11:5 6 AM EST 07/08/2023 12:02 PM EST Narrative Resulting Agency Comment Spec In Lab Minh TOBAR HEMATOLOGY ORDERABLE S [facility] [place] [address] * (ABNORMAL) Comprehensive metabolic panel (non-fasting) (07/08/2023 11:56 AM EST) Glucose Lvl 93 65 - 199 mg/dL [facility] Comment:Diabetes: >=200 mg/d L plus symptoms BUN 19(H) 8 - 18 mg/dL [facility] Creatinine 0.81 0.70 - 1.20 mg/dL [facility] Sodium 142 135 - 145 mmol/L [facility] Potassium 3.8 3.5 - 5.0 mmol/L [facility] Comment: Please note: ??Patients with WBC >100,000 may have falsely elevated Potassium levels. ??For accurate Potassium quantification in these patients send serum separator tube (gold top) for subsequent determinations. ??Contact the Clinical Chemistry Laboratory if there are any questions. Chloride 104 98 - 107 mmol/L [facility] CO2 26 22 - 31 mmol/L [facility] Anion Gap 12 5 - 15 mmol/L [facility] Calcium 10.2 8.5 - 10.5 mg/dL [facility] Total Protein 7.4 6.1 - 8.0 g/dL [facility] Albumin 4.1 3.2 - 5.2 g/dL [facility] AST 24 0 - 30 unit/L [facility] ALT 12 0 - 30 unit/L [facility] Alk Phos 93 35 - 105 unit/L [facility] Total Bilirubin 0.3 0.2 - 1.3 mg/dL [facility] Estimated GFR 80 >=60 mL/min/1. 73 m?? [facility] Comment: This patient's estimated [...] MD CHEMISTRY ORDERABLE S Performing Organization Address City/State/[facility] Co de Phone Number [facility] [place] [address] documented in this encounter Visit Diagnoses Diagnosis S/P TAVR (transcatheter aortic valve replacement) Severe aortic stenosis Aortic valve disorders documented in this encounter Care Teams Medicaid Billing Specialist Relationship Specialty Start Date End Date Magdalena Acosta MD [address] [place] [address] PCP - General Family Medicine 02/05/23 documented as of this encounter
--- OUTSIDE RECORDS SUMMARY | 2024-02-17 14:23 | XMS_ITS | Encounter Summary ---
Author Organization [facility] Address [facility] [place] [address] Care Team Providers Care Application Infrastructure Engineer Name Role Phone Magdalena Acosta MD Primary Care Provider [phone] Reason for Visit * Reason Comments Coronary Artery Disease Hypertension Aortic Stenosis Encounter Details Date Type Department Care Team (Latest Contact Info) Description 07/20/2023 4:40 PM EST TH Visit (TeleHealth) Cardiology at [address] [place] [address] Jay Maza PA [facility] [place] [address] HFrEF (heart failure with reduced ejection fraction); Hypertension, unspecified type; Aortic valve stenosis, etiology of cardiac valve disease unspecified Social History Tobacco Use Types Packs/Day Years Used Date Smoking Tobacco: Never Smokeless Tobacco: Never Alcohol Use Standard Drinks/Week Comments No 0 (1 standard drink = 0.6 oz pur e alcohol) none [facility] Inpatient Questions Answer Date Recorded Does Anyone [...] Maza PA - 07/20/2023 4:40 PM EST [facility] Interventional Cardiology CARDIOLOGY [...] lieu of an in person office visit. Central Supply Aide: Antelmo Sharma MD ([facility] Cards) Maria Luz Mejia MD ([facility] cards) Problem List: : prior surgical [...] fraction I35.0 Mild coronary artery disease by [facility] 11/09/2022 I25.10 Heart failure with reduced ejection [...] notable for coronary artery protection given low jnsgq-fz-rzkdwjjr distance. There was no obstruction post Valve deployment, but the stent could not be removed safely, so it was deployed. 4.0 mm x 30mm in left main. She was loaded on brilinta aka ticagrelor. Immediately post valve deployment, chest compressions to circulate central epinephrine which was administered given her hypotension, low LVEF, and low cardiac reserve. Next, the patient was transferred to [facility] for pressor and inotropic support. Pressors weaned overnight. Cardiac indices by thermodilution remained greater than 3 with continued Milrinone 0.125 mcg/kg/min. EKG the next day with NSR with stable ID/QRS intervals. Hemoglobin 7.8 today from 8.5, likely [...] arms and wrists. Successful right transfemoral TAVR Cyjkc-yp-Enamw with a 23 mm Lai 3 THV. [...] leads Confirmed by MD Harshil, Haris Bell ([id number]) on 05/10/2023 8:11:46 AM Cardiac Cath 11/09/2022 [...] outpatient cards in 4 months with echo. EKATERNIA Thompson Time spent: Total of 30 minutes spent in chart review and direct patient contact. [id number] 0-5min 7436PTY5 6-10min 5261JJD6 11-15min 8700GLS3 16-20min x 7285JBA8 21-30min 0557DES2 31-40min 7907CIO9 40+ min Jay Maza PA-C Interventional Cardiology [facility] V[facility] Pager [phone] documented in this encounter Plan of Treatment Upcoming Encounters Date Type Department Care Team (Late st Contact Info) Description 02/22/2024 4:15 PM EDT Office Visit Dermatology at [place] [address] [place] [address] Marek Bonilla MD [address] [place] [address] 06/05/2024 11:30 AM EST Office [place] [address] Magdalena Peralta MD [facility] [place] [address] documented as of this encounter Visit Diagnoses Diagnosis HFrEF (heart failure with reduced ejection fraction) Hypertension, unspecified type Aortic valve stenosis, etiology of cardiac valve disease unspecified documented in this encounter Care Teams Application Infrastructure Engineer Relationship Specialty Start Date End Date Magdalena Acosta MD [address] [place] [address] PCP - General Family Medicine 02/05/23 documented as of this encounter
--- OUTSIDE RECORDS SUMMARY | 2024-02-17 14:23 | XMS_ITS | Encounter Summary ---
Author Organization [facility] [place] [address] Care Team Providers Care Mechanical Integrity Specialist Name Role Phone Magdalena Acosta MD Primary Care Provider [phone] Encounter Details Date Type Department Care Team (Late st Contact Info) Description 07/08/2023 10:15 AM EST Office Visit Cardiology at [address] [phone] Severe aortic stenosis Social History Tobacco Use Types Packs/Day Years Used Date Smoking Tobacco: Never Smokeless Tobacco: Never Alcohol Use Standard Drinks/Week Comments No 0 (1 standard drink = 0.6 oz pur e alcohol) none [facility] Inpatient Questions Answer Date Recorded Does [...] 4:15 PM EDT Office Visit Dermatology at [place] [address] [place] [address] Marek Bonilla MD [address] [facility] [place] [address] 06/05/2024 11:30 AM EST Office [place] [address] Magdalena Peralta MD [facility] [place] [address] documented as of this encounter Procedures Procedure [...] (Bezet) 449 ms MUSE SYSTEM Calculated P [place] 66 degrees MUSE SYSTEM Calculated R [place] 60 degrees MUSE SYSTEM Calculated T [place] 53 degrees MUSE SYSTEM INTERPRETATION Normal sinus rhythm Minimal voltage criteria for LVH, may be normal variant ( Sokolow-Orozco ) ST & T wave abnormality, consider lateral ischemia ??vs. repolarization abnormality from LVH Abnormal ECG When compared with ECG of 13-MAY-2023 09:22, Premature ventricular complexes are no longer Present Minimal criteria for Septal infarct are no longer Present Confirmed by Maxx Best ([id number]) on 07/09/2023 10:07:22 AM MUSE SYSTEM 07/08/2023 10:2 7 AM EST 07/09/2023 10:07 AM EST Brody Kaplan APRN ECG ORDERABLES [employer] documented in this encounter Visit Diagnoses Diagnosis Severe aortic stenosis Aortic valve disorders documented in this encounter Care Teams Mechanical Integrity Specialist Relationship Specialty Start Date End Date Magdalena Acosta MD [address] [place] [address] PCP - General Family Medicine 02/05/23 documented as of this encounter
--- OUTSIDE RECORDS SUMMARY | 2024-02-17 14:23 | XMS_ITS | Encounter Summary ---
Author Organization [facility] [place] [address] Care Team Providers Care Power Plant Electrician Name Role Phone Magdalena Acosta MD Primary Care Provider [phone] Encounter Details Date Type Department Care Team (Latest Contact Info) Description 10/04/2023 Travel Social History Tobacco Use Types Packs/Day Years Used Date Smoking Tobacco: Never Smokeless Tobacco: Never Alcohol Use Standard Drinks/Week Comments No 0 (1 standard drink = 0.6 oz pur e alcohol) none [facility] Inpatient Questions Answer Date Recorded [...] PM EDT Office Visit Dermatology at [address] [facility] [place] [phone] Marek Bonilla MD [address] [place] [address] [place] [address] 06/05/2024 11:30 AM EST Office [place] [address] Magdalena Peralta MD [facility] [address] documented as of this encounter Visit Diagnoses Not on filedocumented in this encounter Care Teams Power Plant Electrician Relationship Specialty Start Date End Date Magdalena Acosta MD [address] [place] [address] PCP - General Family Medicine 02/05/23 documented as of this encounter
--- OUTSIDE RECORDS SUMMARY | 2024-02-17 14:23 | XMS_ITS | Encounter Summary ---
Author Organization [facility] Address [facility] [place] [address] Care Team Providers Care Track Walker Name Role Phone Magdalena Acosta MD Primary Care Provider [phone] Reason for Visit * Reason Comments Aortic Stenosis Coronary Artery Disease Hypertension Encounter Details Date Type Department Care Team (Latest Contact Info) Description 11/16/2023 11:40 AM EDT TH Visit (TeleHealth) Cardiology at [address] [place] [address] [place] [address] Aortic valve stenosis, etiology of cardiac valve disease unspecified; Coronary artery disease, unspecified vessel or lesion type, unspecified whether angina present, unspecified whether yomba shoshone or transplanted heart Social History Tobacco Use Types Packs/Day Years Used Date Smoking Tobacco: Never Smokeless Tobacco: Never Alcohol Use Standard Drinks/Week Comments No 0 (1 standard drink = 0.6 oz pur e alcohol) none [facility] Inpatient Questions Answer Date Recorded Does Anyone [...] from the original note were not included. [facility] Interventional Cardiology CARDIOLOGY TELE VISIT NOTE 11/16/23 Patient: Purnima Thacker Prior to the initiation of our discussion, the risks and benefits of tele health visits were discussed, and the patient consented verbally to this being a virtual telehealth visit in lieu of an in person office visit. CARDIOLOGISTS: Antelmo Sharma MD ([facility] Cards) Maria Luz Mejia MD ([facility] Cards - [facility]) Problem List: Aortic valve stenosis: prior surgical [...] fraction I35.0 Mild coronary artery disease by [facility] 11/09/2022 I25.10 Heart failure with [...] notable for coronary artery protection given low ghdsu-ad-cbkyujmm distance. There was no obstruction post Valve [...] had a very reassuring recent echo in [facility], in scanned docs. LVEF 55%. Valve function [...] leads Confirmed by MD Harshil, Haris Bell ([id number]) on 05/10/2023 8:11:46 AM Cardiac Cath 11/09/2022 [...] in one year. EKATERINA Thompson Time spent: [id number] 0-5min 7764ZVA5 6-10min 9519ONS9 11-15min x 6774JRJ0 16-20min 3650OIT7 21-30min 6463MDJ5 31-40min 1391JJR2 40+ min Jay Maza PA-C Interventional Cardiology [facility] Pager [phone] documented in this encounter Plan of Treatment Upcoming Encounters Date Type Department Care Team (Late st Contact Info) Description 02/22/2024 4:15 PM EDT Office Visit Dermatology at [address] [place] [address] Marek Bonilla MD [address] [place] [address] 06/05/2024 11:30 AM EST Office [place] [address] Magdalena Peralta MD [facility] [place] [address] documented as of this encounter Visit Diagnoses Diagnosis Aortic valve stenosis, etiology of cardiac valve disease unspecified Coronary artery disease, unspecified vessel or lesion type, unspecified whether angina present, unspecified whether [place]omba shoshone or transplanted heart documented in this encounter Care Teams Track Walker Relationship Specialty Start Date End Date Magdalena Acosta MD [address] [place] [address] PCP - General Family Medicine 02/05/23 documented as of this encounter
--- OUTSIDE RECORDS SUMMARY | 2024-02-17 14:23 | XMS_ITS | Clinical Summary ---
Author Organization [facility] Address [facility] [place] [address] Care Team Providers Care Operation Shift Supervisor Name Role Phone Magdalena Acosta MD Primary Care Provider [phone] Allergies No known active allergies Medications Medication [...] fraction 05/08/2023 Mild coronary artery disease by [facility] 11/09/2022 Heart failure with reduced e [...] Team Description 12/16/2023 Orders Only Cardiology at [address] [address] Antelmo Sharma MD S/P TAVR (transcatheter aortic valve replacement) 12/02/2023 11:15 AM EDT [place] [address] Magdalena Peralta MD Mixed connective tissue disease 12/01/2023 Travel from Last 3 Months Immunizations Name Administration Dates Next Due Influenza Quadrivalent (FluAd) Adjuvanted 2022 Influenza Unspecified Formulation 05/18/2016 Social History Tobacco Use Types Packs/Day Years Used Date Smoking Tobacco: Never Smokeless Tobacco: Never Tobacco Cessation:Counseling Given: Not Answered Alcohol Use Standard Drinks/Week Comments No 0 (1 standard drink = 0.6 oz pur e alcohol) none [facility] Inpatient Questions Answer Date Recorded Does Anyone [...] 4:15 PM EDT Office Visit Dermatology at [place] [address] [place] [address] Marek Bonilla MD [address] [place] [address] 06/05/2024 11:30 AM EST Office [place] [phone] Magdalena Peralta MD [facility] DR [place]HEUMAT[place] [address] Health Maintenance Due Date Last Done Comments [...] 06/05/2036 06/05/2021 Medical Devices Implanted Type Area Napper Tender Device Identifier Shelf Expiration Date Model / Serial / Lot Valve,Aor,Pericar d,Magna,25mm ([id number]) - [id number] Implanted:Qty: 1 on 09/21/2016 by Alirio Esparza MD at [facility] IMPLANTS N/A: Heart DO NOT USE [id number] - [id number] 06/02/2020 [id number] / / [id number] Cable,Blnt,Ss,38i n ([id number]) - [id number] Implanted:Qty: 4 on 09/21/2016 by Alirio Esparza MD at [facility] IMPLANTS N/A: Chest [employer] - [id number] 04/29/2021 [id number] / / [id number] Patch,Cav,Pericar d,2x5cm ([id number]) (Autoreq) - [id number] Implanted:Qty: 1 on 09/21/2016 by Alirio Esparza MD at [facility] IMPLANTS N/A: Heart DO NOT USE [employer] - [id number] 04/21/2018 [id number] / / [id number] Tavr-05/12/2023 Implanted:Qty: 1 on 05/12/2023 by Antelmo Sharma MD Other Heart [employer] - JAIME LI [id number] / [id number] / Description:[employer] NCES ABBY 3 ULTRA [...] Glucose Lvl 93 65 - 199 mg/dL [facility] Comment:Diabetes: >=200 mg/d L plus symptoms BUN 19(H) 8 - 18 mg/dL [facility] Creatinine 0.81 0.70 - 1.20 mg/dL [facility] Sodium 142 135 - 145 mmol/L [facility] Potassium 3.8 3.5 - 5.0 mmol/L [facility] Comment: Please note: ??Patients with WBC >100,000 may have falsely elevated Potassium levels. ??For accurate Potassium quantification in these patients send serum separator tube (gold top) for subsequent determinations. ??Contact the Clinical Chemistry Laboratory if there are any questions. Chloride 104 98 - 107 mmol/L [facility] CO2 26 22 - 31 mmol/L [facility] Anion Gap 12 5 - 15 mmol/L [facility] Calcium 10.2 8.5 - 10.5 mg/dL [facility] Total Protein 7.4 6.1 - 8.0 g/dL [facility] Albumin 4.1 3.2 - 5.2 g/dL [facility] AST 24 0 - 30 unit/L [facility] ALT 12 0 - 30 unit/L [facility] Alk Phos 93 35 - 105 unit/L [facility] Total Bilirubin 0.3 0.2 - 1.3 mg/dL [facility] Estimated GFR 80 >=60 mL/min/1. 73 m?? [facility] Comment: This patient's [...] Lab Alirio Esparza MD CHEMISTRY ORDERABLE S [facility] [place] [address] * DXA Central Spine, Hip, and/or Whole Body (Generic) (06/05/2021 11:58 AM EDT) PT CLASS O RAD ADMITDTTM RAD PT RAD INFO [id number]^E VERETT^DEBORAH ^E RAD EXAM DESC XDXAC^DEXA SCAN [...] who have questions please contact the health long term care administrator that requested your imaging first. [...] patients who have questions please contactthe health long term care administrator that requested your imaging first. Electronically signed by: Rocael Villatoro MD, [facility]([phone]), at 06/05/2021 12:00 PM Deborah Quiroga BRIM FLEXER IMG DEXA ORDERABLES * Mammo Screening Cad Bilateral (06/05/2021 11:42 AM EDT) PT CLASS O RAD ADMITDTTM RAD PT RAD INFO [id number]^EV ERETT^DEBORAH^E RAD EXAM DESC MADDSC^SCREEN MAMMO BL [...] who have questions please contact the health long term care administrator that requested your imaging first. ? Electronically signed by: Rocael Villatoro MD, [facility] ([phone]), at 06/05/2021 1:27 PM Narrative 06/05/2021 1:27 [...] are almost entirely fatty. Procedure Note Rocael Villtaoro MD - 06/05/2021 EXAMINATION: BREAST SCREEN TOMOSYNTHESIS [...] patients who have questions please contactthe health long term care administrator that requested your imaging first. Electronically signed by: Rocael Villatoro MD, [facility]([phone]), at 06/05/2021 1:27 PM Deborah Quiroga APRN IMG MAMMO ORDERABLE S from Last 3 Months [...] capacity to make decision: Yes Care Teams Operation Shift Supervisor Relationship Specialty Start Date End Date Magdalena Acosta MD [address] [place] [address] PCP - General Family Medicine 02/05/23
--- OUTSIDE RECORDS SUMMARY | 2024-02-17 14:23 | XMS_ITS | Encounter Summary ---
Author Organization [facility] [place] [address] Care Team Providers Care Demo Specialist Name Role Phone Magdalena Acosta MD Primary Care Provider [phone] Reason for Referral * Diagnostic Test (Routine) - Closed Specialty Diagnoses / Procedures Referred By Contac t Referred To Contact Cardiology Diagnoses S/P TAVR (transcatheter aortic valve replacement) Procedures Echocardiogram Transthoracic Vinod Juárez PA [facility] [place] [address] [facility] [place] [address] Referral ID Status Reason Start Date Expiration Date V isits Requested Visits Authorized [id number] Closed Specialty Service Requested 05/22/2023 05/21/2024 1 1 Reason for Visit * Diagnostic Test (Routine) - Closed Specialty Diagnoses / Procedures Referred By Contac t Referred To Contact Cardiology Diagnoses S/P TAVR (transcatheter aortic valve replacement) Procedures Echocardiogram Transthoracic Vinod Juárze PA [facility] [place] [address] [facility] [place] [address] Referral ID Status Reason Start Date Expiration Date V isits Requested Visits Authorized [id number] Closed Specialty Service Requested 05/22/2023 05/21/2024 1 1 Encounter Details Date Type Department Care Team (Latest Contact Info) Description 07/08/2023 10:19 AM EST - 07/08/2023 11:59 PM EST Hospital Encounter Non-Invasive Cardiology Lab [facility] [place] [address] Alirio Esparza MD [facility] [address] [place] [address] S/P TAVR (transcatheter aortic valve replacement) Discharge [...] 4:15 PM EDT Office Visit Dermatology at [place] [address] [facility] [place] [address] Marek Bonilla MD 580 [facility] [place] [address] 06/05/2024 11:30 AM EST Office [place] [address] Magdalena Peralta MD [facility] [place] [address] documented as of this encounter Procedures Procedure [...] EST Narrative 07/08/2023 12:26 PM EST 1 [place] [address] ? Echocardiogram Report Name: ONESIMO THACKER ?Study Date: 07/08/2023 10:31 AMBP: 118/60 mmHg ? Patient Location: 4A : 1955 ? Height: 155 cm ? Account: [id number] Age: 67 yrs ? Weight: 74 kg Gender: Female ?BSA: 1.7 m2 Ordering Physician: ALIRIO ESPARZA Referring Physician: VINOD JUÁREZ Performed By: Felicia Norris RDCS Reason For Study: S/P TAVR Exam Location: [facility]. Interpretation Summary Left ventricular systolic function is [...] no significant change (post-procedure). Procedure Limited - 37284. Doppler - 25811. Color Doppler - 93005. Satisfactory quality. This study is limited because [...] Note Lee Kincaid MD - 07/08/2023 1 [place] [address] Echocardiogram Report Name: LASHELL THACKEROUISE Magalie Study Date: 0:31 AMBP: 118/60 mmHg Patient Location: : 1955 Height: 155 cm Account: [id number] Age: 67 yrs Weight: 74 kg Gender: Female BSA: 1.7 m2 Ordering Physician: ALIRIO ESPARZA Referring Physician: VINOD JUÁREZ Performed By: Felicia Norris RDCS Reason For Study: S/P TAVR Exam Location: [facility]. Interpretation Summary Left ventricular systolic function is [...] is nosignificant change (post-procedure). Procedure Limited - 78180. Doppler - 01049. Color Doppler - 47816. Satisfactoryquality. This study is limited because of [...] replacement) documented in this encounter Care Teams Demo Specialist Relationship Specialty Start Date End Date Magdalena Acosta MD [address] [place] [address] PCP - General Family Medicine 02/05/23 documented as of this encounter
--- OUTSIDE RECORDS SUMMARY | 2024-02-17 14:23 | XMS_ITS | Encounter Summary ---
Author Organization [facility] Address [address] [place] [address] Care Team Providers Care Insurance Processor Name Role Phone Unavailable Primary Care Provider Unavailabl e Encounter Details Date Type Department Care Team (Late st Contact Info) Description 03/24/2007 11:06 EDT - 03/24/2007 11:59 EDT Hospital Encounter [facility] - Other [address] [place] [address] Ashley Chavez ARNP [address] [place] [id number] Discharge Disposition: Home or Self Care Social [...]
--- OUTSIDE RECORDS SUMMARY | 2024-02-17 14:23 | XMS_ITS | Encounter Summary ---
Author Organization [facility] [place] [address] Care Team Providers Care Hot Dip Plating Supervisor Name Role Phone Magdalena Acosta MD Primary Care Provider [phone] Encounter Details Date Type Department Care Team (Latest Contact Info) Description 07/08/2023 Travel Social History Tobacco Use Types Packs/Day Years Used Date Smoking Tobacco: Never Smokeless Tobacco: Never Alcohol Use Standard Drinks/Week Comments No 0 (1 standard drink = 0.6 oz pur e alcohol) none [facility] Inpatient Questions Answer Date Recorded Does Anyone [...] 4:15 PM EDT Office Visit Dermatology at [address] [facility] [place] [address] Marek Bonilla MD [address] [facility] [place] [address] 06/05/2024 11:30 AM EST Office [place] [address] Magdalena Peralta MD [facility] [place] [address] documented as of this encounter Visit Diagnoses Not on filedocumented in this encounter Care Teams Hot Dip Plating Supervisor Relationship Specialty Start Date End Date Magdalena Acosta MD [address] [place] [address] PCP - General Family Medicine 02/05/23 documented as of this encounter
--- OUTSIDE RECORDS SUMMARY | 2024-02-17 14:23 | XMS_ITS | Encounter Summary ---
Author Organization [facility] [place] [address] Care Team Providers Care Strand And Binder Controller Name Role Phone Magdalena Acosta MD Primary Care Provider [phone] Encounter Details Date Type Department Care Team (Late st Contact Info) Description 12/02/2023 11:15 AM EDT Office [place] [address] Magdalena Peralta MD [facility] [place] [address] Mixed connective tissue disease Social History Tobacco [...] Progress Notes * Magdalena Peralta MD - 12/02/2023 11:15 AM EDT [...] 1:5120 speckled; VIC negative; Myositis panel with [employer] SAL[employer] REPRESENTATIVE ab 149.1 (positive); Anti U1RNP [...] list of questions that she sent via [facility] ahead of her visit, which we [...] exposure. She has an appointment with her Household Refrigerator Mechanic scheduled in January. (Dr Bonilla in [place]) ROS (positives in bold): Gen: no fevers, [...] but I encouraged her to contact her Household Refrigerator Mechanic to see if she could have her [...] Dr. Tanisha Peralta MD Rheumatology Fellow Pager: [phone] * Federico Yee MD - 12/02/2023 11:15 [...] 4:15 PM EDT Office Visit Dermatology at [place] [address] [place] [address] Marek Bonilla MD [address] [facility] [place] [address] 06/05/2024 11:30 AM EST Office [place] [address] Magdalena Peralta MD [facility] [place] [address] Scheduled Orders Name Type Priority Associated Diagnoses Orde r Schedule EKG 12 Lead ECG Routine Mixed connective tissue disease Expected: 12/02/2023, Expires: 06/03/2024 documented as of this encounter Visit Diagnoses Diagnosis Mixed connective tissue disease Other specified diffuse disease of connective tissue documented in this encounter Care Teams Strand And Binder Controller Relationship Specialty Start Date End Date Magdalena Acosta MD [address] [place] [address] PCP - General Family Medicine 02/05/23 documented as of this encounter
--- OUTSIDE RECORDS SUMMARY | 2024-02-17 14:23 | XMS_ITS | Encounter Summary ---
Author Organization [facility] [place] [address] Care Team Providers Care Build Engineer Name Role Phone Magdalena Acosta MD Primary Care Provider [phone] Encounter Details Date Type Department Care Team (Latest Contact Info) Description 07/06/2023 Travel Social History Tobacco Use Types Packs/Day Years Used Date Smoking Tobacco: Never Smokeless Tobacco: Never Alcohol Use Standard Drinks/Week Comments No 0 (1 standard drink = 0.6 oz pur e alcohol) none [facility] Inpatient Questions Answer Date [...] PM EDT Office Visit Dermatology at [address] [facility] [place] [address] Marek Bonilla MD 580 [facility] [place] [address] 06/05/2024 11:30 AM EST Office Visit [place] [address] Magdalena Peralta MD [facility] [place] [address] documented as of this encounter Visit Diagnoses Not on filedocumented in this encounter Care Teams Build Engineer Relationship Specialty Start Date End Date Magdalena Acosta MD [address] [place] [address] PCP - General Family Medicine 02/05/23 documented as of this encounter
--- OUTSIDE RECORDS SUMMARY | 2024-02-17 14:23 | XMS_ITS | Encounter Summary ---
Author Organization [facility] [place] [address] Care Team Providers Care Textile Screen Printer Name Role Phone Magdalena Acosta MD Primary Care Provider [phone] Encounter Details Date Type Department Care Team (Latest Contact Info) Description 07/29/2023 Travel Social History Tobacco Use Types Packs/Day Years Used Date Smoking Tobacco: Never Smokeless Tobacco: Never Alcohol Use Standard Drinks/Week Comments No 0 (1 standard drink = 0.6 oz pur e alcohol) none [facility] Inpatient Questions Answer Date Recorded [...] PM EDT Office Visit Dermatology at [address] [place] [address] Marek Bonilla MD [address] [facility] [place] [address] 06/05/2024 11:30 AM EST Office [place] [address] aMgdalena Peralta MD [facility] [address] documented as of this encounter Visit Diagnoses Not on filedocumented in this encounter Care Teams Textile Screen Printer Relationship Specialty Start Date End Date Magdalena Acosta MD [address] [place] [address] PCP - General Family Medicine 02/05/23 documented as of this encounter
--- OUTSIDE RECORDS SUMMARY | 2024-02-17 14:23 | XMS_ITS | Encounter Summary ---
Author Organization [facility] [place] [address] Care Team Providers Care Security Risk Analyst Name Role Phone Magdalena Acosta MD Primary Care Provider [phone] Reason for Referral * Diagnostic Test (Routine) - New Request Specialty Diagnoses / Procedures Referred By Contac t Referred To Contact Cardiology Diagnoses S/P TAVR (transcatheter aortic valve replacement) Procedures Echocardiogram Transthoracic Antelmo Sharma MD [facility] [place] [address] [facility] [place] [address] Referral ID Status Reason Start Date Expiration Date Visits Requested Visits Authorized [id number] New Request Specialty Service Requested 12/16/2023 12/15/2024 1 1 Encounter Details Date Type Department Care Team (Late st Contact Info) Description 12/16/2023 Orders Only Cardiology at [address] [address] Antelmo Sharma MD [facility] [place] [id number] S/P TAVR (transcatheter aortic valve replacement) [...] 4:15 PM EDT Office Visit Dermatology at [place] [address] [place] [address] Marek Bonilla MD [address] [facility] [place] [address] 06/05/2024 11:30 AM EST Office [place] [address] Magdalena Peralta MD [facility] [place] [address] Scheduled Orders Name Type Priority Associated Diagnoses [...] replacement) documented in this encounter Care Teams Security Risk Analyst Relationship Specialty Start Date End Date Magdalena Acosta MD [address] [place] [address] PCP - General Family Medicine 02/05/23 documented as of this encounter
--- OUTSIDE RECORDS SUMMARY | 2024-02-17 14:23 | XMS_ITS | Encounter Summary ---
Author Organization [facility] Address [address] [place] [address] Care Team Providers Care Wardrobe Specialist Name Role Phone Unavailable Primary Care Provider Unavailabl e Encounter Details Date Type Department Care Team (Late st Contact Info) Description 04/20/2005 Results Only [facility] [address] [place] [address] Ziggy Valiente MD [address] [place] [id number] Social History Tobacco Use Types Packs/Day Years [...] ? 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 Accession #: ? [id number] ? : ? 1955 (Age: 49) ??F [...] correlation with endoscopic appearance is recommended. (Dr. Chino)/[facility] Document reviewed and electronically signed by: TYRON [...] is entirely submitted in one cassette. ??(Arabella Santos)/[facility] End of Report PAUL ARELLANO 04/20/2005 04/21/2005 15: 04 EDT Ziggy Valiente MD PATHOLOGY ORDERABLES PAUL ARELLANO [address] [place] [address] documented in this encounter Visit Diagnoses Not on filedocumented in this encounter
--- OUTSIDE RECORDS SUMMARY | 2024-02-17 14:23 | XMS_ITS | Encounter Summary ---
Author Organization [facility] [place] [address] Care Team Providers Care Area Director Name Role Phone Magdalena Acosta MD Primary Care Provider [phone] Encounter Details Date Type Department Care Team (Late st Contact Info) Description 05/27/2023 Refill Cardiology at [address] [phone] Vero Marrero, RN Social History Tobacco Use Types Packs/Day Years Used Date Smoking Tobacco: Never Smokeless Tobacco: Never Alcohol Use Standard Drinks/Week Comments No 0 (1 standard drink = 0.6 oz pur e alcohol) none [facility] Inpatient Questions Answer Date Recorded Does [...] PM EDT TC to Nurse Sosa at [facility] to relay response from Jay Maza copied below. Nurse Sosa states they will send a new prescription to patient's preferred pharmacy and call the patient with the medication information. No print prescription sent to update med list. May 27, 2023 Jay Maza PA to Wy 05/27/23 2:44 PM OK to change ticagrelor to Clopidogrel. Now, she should be taking ticagrelor 90mg BID. When she switches, she can take ticagrelor, then the next morning, stop ticagrelor, instead take clopidogrel 300mg once, then after that 75mg once daily. Jay Marrero spinning lathe operator Clinic at [facility] [address] * Telephone Encounter - Vero Marrero RN - 05/27/2023 1:46 PM EDT VM received from triage nurse Sosa at [facility] stating patient was seen today by Dr. [...] more affordable option, if possible. Vero Marrero spinning lathe operator [facility] at [facility] [address] documented in this encounter Plan of Treatment Upcoming Encounters Date Type Department Care Team (Late st Contact Info) Description 02/22/2024 4:15 PM EDT Office Visit Dermatology at [place] [address] [facility] [place] [address] Marek Bonilla MD [address] [facility] [place] [address] 06/05/2024 11:30 AM EST [place] [address] Magdalena Peralta MD [facility] [place] [address] documented as of this encounter Visit Diagnoses Diagnosis Aortic valve stenosis, etiology of cardiac valve disease unspecified documented in this encounter Care Teams Area Director Relationship Specialty Start Date End Date Magdalena Acosta MD [address] [place] [address] PCP - General Family Medicine 02/05/23 documented as of this encounter
--- OUTSIDE RECORDS SUMMARY | 2024-02-17 14:23 | XMS_ITS | Encounter Summary ---
Author Organization [facility] Address [facility] [place] [address] Care Team Providers Care Demolition Worker Name Role Phone Magdalena Acosta MD Primary Care Provider [phone] Encounter Details Date Type Department Care Team (Late st Contact Info) Description 07/29/2023 11:00 AM EST Office [place] [address] Magdalena Peralta MD [facility] [place] [address] Mixed connective tissue disease Social History Tobacco [...] 1:5120 speckled; VIC negative; Myositis panel with [employer] TAX ab 149.1 (positive); Anti U1RNP IgG 119; [...] Viramontes. Magdalena Peralta MD Rheumatology Fellow Pager: [phone] * Kia Viramontes DO - 07/29/2023 11:00 AM EST ATTENDING ADDENDUM The patient's history was reviewed, and I interviewed and examined the patient with Dr. Peralta I agree with her summary, findings, and plan. documented in this encounter Plan of Treatment Upcoming Encounters Date Type Department Care Team (Late st Contact Info) Description 02/22/2024 4:15 PM EDT Office Visit Dermatology at [address] [address] Marek Bonilla MD [address] [place] [address] [place] [address] 06/05/2024 11:30 AM EST Office [place] [address] Magdalena Peralta MD [facility] [place] [address] documented as of this encounter Results * [...] PFT FEV1/FVC Pre-BD Z-Score 0 COMPAS PFT TEI24-52 Actual Pre-BD 2.41 % COMPAS PFT YSL21-87 Predicted 1.8 % COMPAS PFT QFV12-11 Pre-BD % of Predicted 134 % COMPAS PFT UPT56-38 Pre-BD Z-Score 0.81 COMPAS PFT DLCO Hb [...] tissue documented in this encounter Care Teams Demolition Worker Relationship Specialty Start Date End Date Magdalena Acosta MD [address] [place] [address] PCP - General Family Medicine 02/05/23 documented as of this encounter
--- OUTSIDE RECORDS SUMMARY | 2024-02-17 14:23 | XMS_ITS | Encounter Summary ---
[place] [address] Care Team Providers Care Residential Program Manager Name Role Phone Magdalena Acosta MD Primary Care Provider [phone] Encounter Details Date Type Department Care Team (Latest Contact Info) Description 10/05/2023 10:52 AM EST - 10/05/2023 11:59 PM [facility] Hospital [place] [address] Mixed connective tissue disease Discharge Disposition: Home Social History Tobacco Use Types Packs/Day Years Used Date Smoking Tobacco: Never Smokeless Tobacco: Never Alcohol Use Standard Drinks/Week Comments No 0 (1 standard drink = 0.6 oz pur e alcohol) none [facility] Inpatient Questions Answer Date Recorded Does [...] PM EDT Office Visit Dermatology at [address] [place] [address] Marek Bonilla MD [address] [facility] [place] [address] 06/05/2024 11:30 AM EST Office [place] [address] Magdalena Peralta MD [facility] [place] [address] documented as of this encounter Procedures Procedure [...] PFT FEV1/FVC Pre-BD Z-Score 0 COMPAS PFT ONU92-75 Actual Pre-BD 2.41 % COMPAS PFT GON76-12 Predicted 1.8 % COMPAS PFT HHK61-46 Pre-BD % of Predicted 134 % COMPAS PFT UFH76-30 Pre-BD Z-Score 0.81 COMPAS PFT DLCO Hb [...] tissue documented in this encounter Care Teams Residential Program Manager Relationship Specialty Start Date End Date Magdalena Acosta MD [address] [place] [address] PCP - General Family Medicine 02/05/23 documented as of this encounter
--- OUTSIDE RECORDS SUMMARY | 2024-02-17 14:23 | XMS_ITS | Encounter Summary ---
Author Organization [facility] [place] [address] Care Team Providers Care Director Of Enterprise Strategy Name Role Phone Magdalena Acosta MD Primary Care Provider [phone] Encounter Details Date Type Department Care Team (Latest Contact Info) Description 12/01/2023 Travel Social History Tobacco Use Types Packs/Day Years Used Date Smoking Tobacco: Never Smokeless Tobacco: Never Alcohol Use Standard Drinks/Week Comments No 0 (1 standard drink = 0.6 oz pur e alcohol) none [facility] Inpatient Questions Answer Date Recorded Does Anyone [...] 4:15 PM EDT Office Visit Dermatology at [address] [facility] [place] [address] Marek Bonilla MD [address] [place] [address] [place] [address] 06/05/2024 11:30 AM EST [place] [address] Magdalena Peralta MD [facility] [address] documented as of this encounter Visit Diagnoses Not on filedocumented in this encounter Care Teams Director Of Enterprise Strategy Relationship Specialty Start Date End Date Magdalena Acosta MD [address] [place] [address] PCP - General Family Medicine 02/05/23 documented as of this encounter
--- OUTSIDE RECORDS SUMMARY | 2024-02-17 14:24 | XMS_ITS | Encounter Summary ---
Author Organization [facility] [place] [address] Care Team Providers Care Soap Chipper Name Role Phone Magdalena Acosta MD Primary Care Provider [phone] Encounter Details Date Type Department Care Team (Latest Contact Info) Description 05/14/2023 Travel Social History Tobacco Use Types Packs/Day Years Used Date Smoking Tobacco: Never Smokeless Tobacco: Never Alcohol Use Standard Drinks/Week Comments No 0 (1 standard drink = 0.6 oz pur e alcohol) none [facility] In[facility] Questions Answer Date Recorded Does [...] 4:15 PM EDT Office Visit Dermatology at [address] [facility] [place] [address] Marek Bonilla MD [address] [facility] [address] 06/05/2024 11:30 AM EST Office [place] [address] Magdalena Peralta MD [facility] [place] [address] documented as of this encounter Visit Diagnoses Not on filedocumented in this encounter Care Teams Soap Chipper Relationship Specialty Start Date End Date Magdalena Acosta MD [address] [place] [address] PCP - General Family Medicine 02/05/23 documented as of this encounter
--- OUTSIDE RECORDS SUMMARY | 2024-02-17 14:24 | XMS_ITS | Encounter Summary ---
[facility] [place] [address] Care Team Providers Care Concrete Mixer Name Role Phone Magdalena Acosta MD Primary Care Provider [phone] Reason for Referral * Diagnostic Test (Routine) - Closed Specialty Diagnoses / Procedures Referred By Contac t Referred To Contact Cardiology Diagnoses S/P TAVR (transcatheter aortic valve replacement) Procedures Echocardiogram Transthoracic Vinod Juárez PA [facility] [place] [address] [facility] [place] [address] Referral ID Status Reason Start Date Expiration Date V isits Requested Visits Authorized [id number] Closed Specialty Service Requested 05/22/2023 05/21/2024 1 1 * Home Health Care (Routine) - Closed Specialty Diagnoses / Procedures Referred By Contac t Referred To Contact Diagnoses S/P TAVR (transcatheter aortic valve replacement) Alirio Hudson MD [facility] [place] [address] [facility] [address] [place] [address] Referral ID Status Reason Start Date Expiration Date V isits Requested Visits Authorized [id number] Closed Consult, Test & Treat 05/22/2023 11/18/2023 999 999 * Consultation (Routine) - Closed Specialty Diagnoses / Procedures Referred By Crispin maxwell Referred To Contact Cardiology Diagnoses S/P TAVR (transcatheter aortic valve replacement) Alirio Hudson MD [facility] CARDIOTHORACIC [place] [address] Cardiac Rehab, [facility] [address] [place] [address] [place] [address] Referral ID Status Reason Start Date Expiration Date V isits Requested Visits Authorized [id number] Closed Consult, Test & Treat 05/22/2023 11/18/2023 36 36 * Diagnostic Test (Routine) - Closed Specialty Diagnoses / Procedures Referred By Crispin maxwell Referred To Contact Cardiology Diagnoses Aortic valve stenosis, etiology of cardiac valve disease unspecified Procedures Echocardiogram Transthoracic Transesophageal Echocardiogram (YUSRA) Radha Hollins MD [facility] [place] [address] [facility] [place] [address] Referral ID Status Reason Start Date Expiration Date V isits Requested Visits Authorized [id number] Closed Specialty Service Requested 05/11/2023 05/10/2024 1 1 Reason for Visit * Auth/Cert (Routine) Specialty Diagnoses / Procedures Referred By Crispin maxwell Referred To Contact Diagnoses Symptomatic severe aortic stenosis with low ejection fraction NSTEMI, CHF Enrique Chua MD [facility] [place] [address] [facility] Referral ID Status Reason Start Date Expiration Date Visits Re quested Visits Authorized [id number] 1 1 Encounter Details Date Type Department Care Team (Latest Contact Info) Description 05/08/2023 9:14 AM EDT - 05/22/2023 10:46 AM EDT Hospital Encounter Heart and Vascular Unit Level 4 [place] [address] Enrique Chua MD [facility] [place] [address] Juan Luis Gonzalez MD [facility] [place] [address] Radha Hollins MD [facility] [place] [address] Alirio Hudson MD [facility] [place] [address] S/P TAVR (transcatheter aortic valve replacement) (Primary Dx); Aortic valve stenosis, etiology of cardiac valve disease unspecified; Symptomatic severe aortic stenosis with low ejection fraction; Heart failure with reduced ejection fraction due to heart valve disease; Mild coronary artery disease by [facility] 11/09/2022; Mixed connective tissue disease; Neck [...] Patient Age: 67 y.o. Birthdate: 1955 Language: Argentine Race: White Ethnicity: Not nor Admit Date: 05/08/2023 Discharge Date: 05/22/2023 Attending Physician: Alirio Hudson MD Follow-up Recommendations for Providers: Please continue routine management of cardiovascular risk factors including blood pressure, lipids,glucose, etc. Please note any medication changes. Patient to follow up with PCP, Magdalena Acosta MD, or Primary Director Of Compliance, Avis Mejia MD, in ~ 7-10 days. Patient to follow up with Quality Lab Technician, Dr. Antelmo Sharma, in 2 weeks with an EKG, Echo, CBC, and CMP. Patient to follow up with Nephrology, their office to arrange. Vlyr-Breftx-nl interval: After initial 30 day follow-up appointment , all TAVR patients will follow-up again in one year with an echo. Inpatient Provider Contact Information: 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 Secondary Diagnoses: Active Hospital Problems Diagnosis S/P TAVR (transcatheter aortic valve replacement) Cardiogenic shock Symptomatic severe aortic stenosis with low ejection fraction Mild coronary artery disease by [facility] 11/09/2022 Heart failure with reduced ejection [...] Tube Placement Right 05/18/2023 Laure Ricks PA [facility] INTERVENTIONL RAD PRG CATH PLMT LEFT HEART CATH & ARTS W/INJ & ANGIO IMG S&I N/A 11/09/2022 CORONARY ANGIOGRAPHY; W [facility],POSSIBLE PCI (WRVU 5.6) performed by Mario Alberto Escobedo MD at [facility] CATH LABS PRG COMBINED RIGHT & LEFT HEART CATH W/INJ L VENTRICULOGRAPHY, IMG S&I N/A 05/12/2023 COMBINED RIGHT & LEFT HEART CATH,INC INJ FOR L VENTRICULOGRAPHY (WRVU 5.99) performed by Antelmo Sharma MD at [facility] CATH LABS PRO AORTOPLAS FOR SUPRAVALV STEN N/A 09/21/2016 @AORTOPLASTY FOR SUPRAVALVULAR STENOSIS (WRVU 29.33) performed by Alirio Hudson MD at [facility] MAIN OR PRO REPLACE AORTIC VALVE (TAVR/FEDERICO)PERC FEMORAL ARTERY APPROACH 05/12/2023 @TRANSCATHETER AORTIC VALVE REPLACEMENT (TAVR), PERCUTANEOUS FEMORAL (WRVU 22.47) performed by Alirio Hudson MD at [facility] CATH LABS PRO REPLACEMENT PROSTHETIC AORTIC VALVE OPEN W CARDIOPULMONARY BYPASS HOMOGRF/STENT N/A 09/21/2016 @REPLACE AORTIC VALVE, OPEN, W\CPB, W\PROSTHETIC VALVE (WRVU 41.32) performed by Alirio Hudson MD at [facility] MAIN OR Prior To Admission Medications [...] Major Procedures/Operations: 05/12/23: Successful right transfemoral TAVR Ohweg-vv-Myiig with a 23 mm Lai 3 THV. Left coronary protection with left main MINNA. Hospital Course: #Severe prosthetic s/p valve in valve TF TAVR #Low coronary heights s/p left main stent for coronary protection #Type 2 NSTEMI, present on arrival, resolved #Acute decompensated HFrEF #Cardiogenic shock #EVANS / Cardiorenal syndrome Purnima Thacker was admitted to [facility] on 05/08/2023 via the Cardiology Service with [...] and she was brought to the laborer cement gun placing the following morning where Drs. Alirio Hudson [...] if you have questions. Please call your Quality Lab Technician's office if you have any discharge or drainage from your procedural sites. Your Quality Lab Technician, Dr. Antelmo Sharma and/or the Clerk General Office may be reached at . Antibiotic prophylaxis: You will need to take antibiotics prior to many invasive tests and treatments, such as dental cleaning, which should be done every 6 months. Your primary care physician or your dentist can prescribe this medication. Please refer to the card with the [place] [employer] Guidelines for more information. You have been provided with a copy of this card. Please refer to the [place] [employer] Guidelines for more information. Good [...] friends, go to a movie, go to amish, etc. Heavy activities: No hunting, skiing, jogging, [...] should resume a low fat, low cholesterol, [place] [employer] Diet Driving: No restrictions. Shower/Bath: You may shower daily. No baths, soaking, or swimming for the first week. Wound care: Wash the sites daily with soap and rinse well, pat dry. Assess for any signs of infection such as increased redness, pain, warmth or drainage. Please call your claims associate's office if you have any discharge or drainage from your procedural sites. If there is a lot of swelling, apply mamta wraps during the day and remove at bedtime. Elevate your legs when you are sitting. Home oxygen therapy: N/A Follow up appointments: Please schedule a follow-up appointment with your PCP, Magdalena Acosta MD, or Primary Director Of Compliance in ~ 7-10 days. You have a follow-up appointment with your Quality Lab Technician, Dr. Antelmo Sharma, in 2 weeks with an EKG, Echo, and labs prior to your appointment. You will need follow-up with Nephrology, their office will arrange. Adkm-Roujva-bx interval: After initial 30 day follow-up appointment , all TAVR patients will follow-up again in one year with an echo. Cardiac Rehabilitation: Purnima Thacker was seen today regarding participation in the outpatient Phase 2 Cardiac Rehabilitation at [facility]. The patient agrees to a referral to this program. The referral will be sent at discharge and the patient should be contacted by the Program within 1- 2 weeks from discharge. Future Appointments and Orders Future Appointments and Orders Future Appointments Provider Department Dept Phone 07/29/2023 11:00 AM Magdalena Peralta MD Rheumatology at [facility] Arrive at: Spanish Translator Area [phone] 02/11/2024 2:00 PM Marek Bonilla MD Dermatology at [place] Arrive at: [facility] [address] [phone] Future Orders Complete By Expires Type and Screen Future Surgery, [facility] SAME DAY PROGRAM ONLY) [LGX4044 Custom] 05/11/2023 Process Instructions: This test is intended ONLY for patients with upcoming surgery for testing prior to the day of surgery obtained through the same day program (4V or SDP). For ALL OTHER PATIENTS, order a Type and Screen (MWT730) This order includes the physician order for an ABO Recheck if requested by the Blood Bank. Scheduling Instructions: Comments: Questions: Date of surgery: CBC (with Diff) [CYQ312 Custom] 06/05/2023 12/05/2023 Process Instructions: INCLUDES: WBC, RBC, Hgb, Hct, Platelets, RBC Indices and Differential Scheduling Instructions: Comments: Questions: Comprehensive metabolic panel (non-fasting) [LAB17 Custom] 06/05/2023 08/20/2023 Process Instructions: INCLUDES: Calcium, T Protein, Albumin, AST, ALT, Alk Phos, T Bili, BUN, Creat, GFR, Glucose, Lytes. Scheduling Instructions: Comments: Questions: Echocardiogram Transthoracic [53831 CPT(R)] 06/05/2023 12/05/2023 Process Instructions: Scheduling Instructions: Questions: Where will study be performed?: [facility] Clinics Does the patient have Congenital Heart Disease?: Does patient require sedation?: GA rationale: EKG 12 Lead [91386 CPT(R)] 06/05/2023 12/05/2023 Process Instructions: Scheduling Instructions: Questions: Which location will this be performed?: [facility] Is a rhythm strip needed?: No [facility] Devices [EQ161 Custom] As directed Process Instructions: Scheduling Instructions: Questions: Device Needed: WALKER (E0143) Patient Height (cm): 154.9 cm (5' 0.98) Patient Weight: 75.4 kg (166 lb 3.2 oz) Diagnosis: Unsteady gait when walking Referral to Cardiac Rehab [UHE243 Custom] As directed Process Instructions: If no progress note charted, please enter Clinical details in comments. Scheduling Instructions: Questions: My question or request is: s/p TAVR. Cardiac rehab at [facility]. Referral to Home Health [REF34 Custom] As directed Process Instructions: If no progress note charted, please enter Clinical details in comments. Scheduling Instructions: Comments: DOCUMENTATION FOR VNA SERVICES PATIENT'S LOCATION: Purnima Thacker [address] [place] [phone] (home) Ornamental Metal Erector Apprentice's Name: Irineo and brother Raymond In discussion with the attending physician, it is certified that this patient is under his/her careand that MD, or an HYDRAULIC STRAINER OPERATOR, FEEDER OPERATOR, or PA who is working directly with him/her, had a faft-op-vyxg encounter that meets the physician jzfk-fd-lobe encounter requirements with this patient on 05/22/2023. [...] for managing ADLs. HOME HEALTH CARE AGENCY: [facility] [address] [facility] [address] PHONE: [phone] FAX: [phone] Start of care: Ideally 24-48 hours after [...] Magdalena Acosta MD [address] / [facility] [address] All VNA agencies which cover the area of patient's residence have been reviewed, either verbally joao writing, and patient has chosen the home health care agency noted. Questions: Disciplines Requested: Physical Therapy Occupational Therapy Discharge References/Attachments None Arrangements for VNA/home care: As above. (delete if no VNA) Signed: EKATERINA NAVARRETE [facility] Section of Cardiac Surgery Date: 05/22/2023 CC: Magdalena Acosta MD SunizonaMario Alberto MD [address] [place] [address] documented in this encounter Discharge Instructions * Patient Instructions* Vinod Juárez PA - 05/22/2023 9:32 AM EDT TAVR Discharge Instructions: Call your doctor if: You have a fever of greater than 101 degrees, shaking chills, if you develop redness or drainage from your procedure sites, or if you have questions. Please call your Quality Lab Technician's office if you have any discharge or drainage from your procedural sites. Your Quality Lab Technician, Dr. Antelmo Sharma and/or the Clerk General Office may be reached at . Antibiotic prophylaxis: You will need to take antibiotics prior to many invasive tests and treatments, such as dental cleaning, which should be done every 6 months. Your primary care physician or your dentist can prescribe this medication. Please refer to the card with the [place] [employer] Guidelines for more information. You have been provided with a copy of this card. Please refer to the [place] [employer] Guidelines for more information. Good [...] friends, go to a movie, go to amish, etc. Heavy activities: No hunting, skiing, jogging, [...] should resume a low fat, low cholesterol, [place] [employer] Diet Driving: No restrictions. Shower/Bath: You may shower daily. No baths, soaking, or swimming for the first week. Wound care: Wash the sites daily with soap and rinse well, pat dry. Assess for any signs of infection such as increased redness, pain, warmth or drainage. Please call your claims associate's office if you have any discharge or drainage from your procedural sites. If there is a lot of swelling, apply mamta wraps during the day and remove at bedtime. Elevate your legs when you are sitting. Home oxygen therapy: N/A Follow up appointments: Please schedule a follow-up appointment with your PCP, Magdalena Acosta MD, or Primary Director Of Compliance in ~ 7-10 days. You have a follow-up appointment with your Quality Lab Technician, Dr. Antelmo Sharma, in 2 weeks with an EKG, Echo, and labs prior to your appointment. You will need follow-up with Nephrology, their office will arrange. Rxtd-Hefolc-ad interval: After initial 30 day follow-up appointment , all TAVR patients will follow-up again in one year with an echo. Cardiac Rehabilitation: Purnimamariza Thacker was seen today regarding participation in the outpatient Phase 2 Cardiac Rehabilitation at [facility]. The patient agrees to a referral to [...] ins ( tef) Haven Ba, PT Pager: [phone] Physical Therapy Inpatient Rehabilitation Department * Nico [...] 0600 and on the weekends please page [phone]. * Jory Paniagua - 05/20/2023 3:52 PM [...] vomiting Last Bowel Movement: 05/20/23 Jory Paniagua Principal Clerk * Tong Mike, OT - 05/20/2023 3:16 [...] Tube Placement Right 05/18/2023 Laure Ricks PA [facility] INTERVENTIONL RAD PRG CATH PLMT LEFT HEART CATH & ARTS W/INJ & ANGIO IMG S&I N/A 11/09/2022 CORONARY ANGIOGRAPHY; W C,POSSIBLE PCI (WRVU 5.6) performed by Mario Alberto Escobedo MD at [facility] CATH LABS PRG COMBINED RIGHT & LEFT HEART CATH W/INJ L VENTRICULOGRAPHY, IMG S&I N/A 05/12/2023 COMBINED RIGHT & LEFT HEART CATH,INC INJ FOR L VENTRICULOGRAPHY (WRVU 5.99) performed by Antelmo Sharma MD at [facility] CATH LABS PRO AORTOPLAS FOR SUPRAVALV STEN N/A 09/21/2016 @AORTOPLASTY FOR SUPRAVALVULAR STENOSIS (WRVU 29.33) performed by Alirio Hudson MD at [facility] MAIN OR PRO REPLACE AORTIC VALVE (TAVR/FEDERICO)PERC FEMORAL ARTERY APPROACH 05/12/2023 @TRANSCATHETER AORTIC VALVE REPLACEMENT (TAVR), PERCUTANEOUS FEMORAL (WRVU 22.47) performed by Alirio Hudson MD at [facility] CATH LABS PRO REPLACEMENT PROSTHETIC AORTIC VALVE OPEN W CARDIOPULMONARY BYPASS HOMOGRF/STENT N/A 09/21/2016 @REPLACE AORTIC VALVE, OPEN, W\CPB, W\PROSTHETIC VALVE (WRVU 41.32) performed by Alirio Hudson MD at [facility] MAIN OR Social History: Patient lives alone. Home Setup: Pt lives on one level with tub shower and three steps to enter. DME: none used FAST FOOD MANAGER Baseline ADL/Mobility: Independent with ADLs and IADLs. [...] awareness: WFL Vision & Perception: corrective lenses time piece repairer Communication: WFL Range of motion, strength, coordination: [...] Discharge Disposition (OT): swing bed rehabilitation facility, usp facility(vs home with support for IADLs) Other [...] Discharge planning. Total Minutes, Occupational Therapy: 28 ([phone]) OT Evaluation Code Rationale: Diagnosis & Pertinent Co-Morbidities affecting Plan of Care: see PMHx Occupational Profile & Client History: Brief Expanded Extensive x Assessment of Occupational Performance: 1-3 performance deficits 3-5 performance deficits x 5 + performance deficits Clinical Decision Making: Low Moderate High x Clinical decision making of moderate complexity using standardized patient assessment instrument and measurable assessment of functional outcome. Pager: [phone] TONG MIKE OT 05/20/2023 Occupational Therapy Rehabilitation [...] 0600 and on the weekends please page [phone]. * Rylie Rodriguez MD - 05/19/2023 3:59 [...] and plan. Cynthia Blackburn MD Nephrology Pager: [phone] * Diana Espino - 05/19/2023 1:49 PM EDT Respiratory Manager Encounter Note Patient Name: Purnima Thacker : [id number] MR#: [id number] Admit Date: 05/08/2023 9:14 AM Hospital Day [...] returning home alone. Anticipated Discharge Disposition (PT): usp facility, swing bed rehabilitation facility Consult Recommendations: [...] as stated. Total Minutes, Physical Therapy: 38 ([phone]) Henrik Navarrete, FAST FOOD MANAGER Pager: [phone] Physical Therapy Inpatient Rehabilitation Department * Nico [...] 0600 and on the weekends please page [phone]. * Laure Ricks PA - 05/19/2023 7:56 [...] Ricks PA-C Interventional Radiology IR Team Pager [phone] * Consuelo Espinoza RN - 05/18/2023 4:13 PM EDT ANGIO NURSING DATABASE Name: Purnima Thacker Date of : 1955 AGE: 67 y.o. Address: [address] [place] [phone] (home) Mobile: No relevant phone numbers on [...] fraction I35.0 Mild coronary artery disease by [facility] 11/09/2022 I25.10 Heart failure with reduced [...] and plan. Cynthia Blackburn MD Nephrology Pager: [phone] * Khushi Magdalena Radha, ASSURANCE SENIOR MANAGER - 05/18/2023 10:51 AM EDT Images from the original note were not included. [facility] [place] [address] STRUCTURAL HEART DISEASE CONSULTATION NOTE PRIMARY CARE PROVIDER: Magdalena Acosta MD REFERRING PROVIDER: Mario Alberto Chin REASON FOR CONSULTATION: Bioprosthetic aortic valve stenosis HISTORY OF PRESENT ILLNESS: Patient ID: Purnima Thacekr is a 67 y.o. 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 She is now status post TAVR Lzgnc-kc-Qcbpc with a 23 mm Lai 3 THV 05/12/[address] Sharma. Preliminary findings: Successful right transfemoral TAVR Wiupg-cd-Doges with a 23 mm Lai 3 THV. [...] perforation. Interval Events: - 05/12 Transferred to [place] post- TAVR for pressor/inotropic support (Levo, vaso, [...] ejection fraction Mild coronary artery disease by [facility] 11/09/2022 Heart failure with reduced ejection [...] injection 40 mg 40 mg Intravenous Daily DeckerMara ernandez APRN 40 mg at 05/12/23 1004 [...] stenosis. She is now status post TAVR Gwbin-to-Yhlry with a 23 mm Lai 3 THV [...] Magdalena Puri APRN Structural Heart Team Pager [phone] Team Office Please see addendum by Dr. Sharma for final plan and recommendations Associated attestation - Antelmo Sharma MD - 05/19/2023 10:52 PM EDT I have reviewed Magdalena Puri APRN's above history and I agree with the details as written. The assessment and plan were formulated in discussion with me and I agree with them as documented. Antelmo Sharma MD Pager [phone] * Nico Palacios PA - 05/18/2023 8:13 [...] 0600 and on the weekends please page [phone]. * JudiLoli eid, PT - 05/17/2023 5:27 [...] returning home alone. Anticipated Discharge Disposition (PT): usp facility, swing bed rehabilitation facility Consult Recommendations: [...] plan as stated. Time IN / OUT: 6940-3254 Total Minutes, Physical Therapy: 54 Billing Code: te-sx2, te-f, gait LOLI HERNANDEZ PT Pager: [phone] Physical Therapy Inpatient Rehabilitation Department * Cynthia [...] Well controlled. Cynthia Blackburn MD Nephrology Pager: [phone] * Mara Serrano, ANURAG - 05/17/2023 8:26 [...] 0600 and on the weekends please page [phone]. * Guerda Del Valle - 05/16/2023 10:44 AM EDT Nutrition Services Note - Low Nutrition Acuity Purnima Thacker is a 67 y.o. female Reason for intervention: hospital day 9 Nutrition Plan: Continue diet order Encourage good PO Josephine noted Added special serve: open containers Monitor weight Patient scheduled for a hospital day 9 nutrition evaluation. Pulping Machine Operator met with pt at bedside. Pt reports that her appetite and PO has much improved since admission. Denies nausea/vomiting or trouble chewing/swallowing. Pulping Machine Operator provided snack list but pt not interested in adding snacks at this time. Her only concern was that she is worried that she will eat too much which will cause too much pressure in her stomach. Pulping Machine Operator assured pt and suggested eating smaller but [...] Last Bowel Movement: 05/10/23 Guerda Del Valle Principal Clerk * Vinod Juárez PA - 05/16/2023 10:19 [...] 0600 and on the weekends please page [phone]. * Michael Jeffers MD - 05/16/2023 8:11 AM EDT Images from the original note were not included. Hypertension-Nephrology Inpatient Follow-up Purnima Thacker [id number] 1955 ID: 67 y.o. old female seen [...] IRONSAT 12 (L) 05/16/2023 SFOLATE >20.0 07/03/2022 [id number] 07/03/2022 Lab Results Component Value Date [...] Dr. Ayoub. Please contact me at phone: [phone] or pager: [phone] with any questions. Michael Jeffers MD Nephrology [...] -Nephrology consulted, labs and renal US ordered -Wild Rose removed, ambulated around the unit -bilateral pleural [...] 0600 and on the weekends please page [phone]. * Hortencia Cody MD - 05/15/2023 2:07 [...] not included. Hypertension-Nephrology Inpatient Follow-up Purnima Thacker [id number] 1955 ID: 67 y.o. old female seen [...] HGB 7.8 (L) 05/13/2023 SFOLATE >20.0 07/03/2022 [id number] 07/03/2022 Lab Results Component Value Date [...] Dr. Ayoub. Please contact me at phone: [phone] or pager: [phone] with any questions. Michael Jeffers MD Nephrology [...] outlined inthis evaluation. HAVEN BA, PT Pager: [phone] Physical Therapy Inpatient Rehabilitation Department Time IN / OUT: 7544-9056 Total time: Total Minutes, Physical Therapy: 30 [...] 0600 and on the weekends please page [phone]. * Antelmo Sharma MD - 05/14/2023 7:56 AM EDT Images from the original note were not included. [facility] [place] [address] STRUCTURAL HEART DISEASE CONSULTATION NOTE PRIMARY CARE [...] stenosis. She is now status post TAVR Tbuoh-bl-Gfawr with a 23 mm Lai 3 THV 05/12/[address] Sharma. Preliminary findings: Successful right transfemoral TAVR Lhzud-lp-Zriao with a 23 mm Lai 3 THV. [...] perforation. Interval Events: - 05/12 Transferred to [place] post- TAVR for pressor/inotropic support (Levo, vaso, [...] ejection fraction Mild coronary artery disease by [facility] 11/09/2022 Heart failure with reduced ejection [...] stenosis. She is now status post TAVR Qcloq-na-Jxqhy with a 23 mm Lai 3 THV 05/12/[address] Sharma. Janet TAVR case notable for coronary LAD protective MINNA. Status post TAVR, the patient was transferred to [place] for pressor and inotropic support. Pressors weaned overnight 05/12. Cardiac indices by thermodilution remained >3 with continued Milrinone 0.125 mcg/kg/min prior to PAC removal. EKG todayNSR with stable ND/QRS intervals. Hemoglobin slowly down-trending (8.2-> 7.8-> 7.2). [...] Brody Kaplan APRN Structural Heart Team Pager [phone] Team Office Please see addendum by Dr. [...] exposure. Nephrology consultationtoday. Antelmo Sharma MD Pager [phone] * Antelmo Cardenas RN - 05/14/2023 5:18 AM EDT Pt AOx4, complaining of mild/moderate generalized pain (states her Meloxicam is effective at home) currently refusing prn oxycodone. NAEON, hemodynamically stable on Milrinone, Maps >65, ST in lif296's down to NSR with frequent multifocal PVC's. [...] from the original note were not included. [facility] [place] [address] STRUCTURAL HEART DISEASE PROGRESS NOTE PRIMARY CARE [...] stenosis. She is now status post TAVR Everv-gh-Wzsju with a 23 mm Lai 3 THV 05/12/[address] Sharma. Preliminary findings: Successful right transfemoral TAVR Fpanx-ne-Xrekf with a 23 mm Lai 3 THV. [...] ejection fraction Mild coronary artery disease by [facility] 11/09/2022 Heart failure with reduced ejection [...] stenosis. She is now status post TAVR Fijsx-td-Qptwt with a 23 mm Lai 3 THV 05/12/[address] Sharma. Janet TAVR case notable for coronary LAD protective MINNA. Status post TAVR, the patient was transferred to [facility] for pressor and inotropic support. Pressors weaned overnight. Cardiac indices by thermodilution remain greater than 3 with continued Milrinone 0.125 mcg/kg/min. EKG today NSR with stable ND/QRS intervals. Hemoglobin 7.8 today from 8.5, likely [...] Brody Kaplan APRN Structural Heart Team Pager [phone] Team Office Please see addendum by Dr. [...] DAPT moving forward. Antelmo Sharma MD Pager [phone] * Bonita Miguel PA - 05/13/2023 8:30 AM EDT Cardiac Surgery Progress Note Purnima Thacker is a 67 y.o. 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 PMH of s/p tissue AVR (2017), mixed connective tissue disease HTN, HLD, NICOLAS, diverticulosis, rosacea, essential tremor, and depression. 24h Events: From laborer cement gun placing for above procedure Extubated at ~1600 to [...] soft b/l, no evidence of hematoma. Tubes/Lines/Drains: Wild Rose, RIJ, A-line, Art, PIV Assessment/Plan: 67 y.o. [...] 0600 and on the weekends please page [phone]. * Onelia Schwartz MD - 05/12/2023 1:44 [...] ejection fraction Mild coronary artery disease by [facility] 11/09/2022 Heart failure with reduced ejection [...] FiO2 weaned to 40%. 1105: ABG 7.34/42/73/22 8049-4201: SBT performed and passed on these settings [...] PCP: Magdalena Acosta MD PCP phone number: [phone] Date of Admission: 05/08/2023 ( Hospital Day [...] 0705/12/2331705/12/2310505/11/23193905/11/237 PHART -- 7.34* 7.34* -- -- XRR4NAL -- 30* 30* -- -- PO2ART -- 72* 81* -- -- FPF7BYT -- 16.0* 15.7* -- -- LACTATEVEN 2.4* 2.7* 2.7* 4.8* 2.9* VBG (Venous Blood Gas) Recent Labs 05/12/23 0705/12/2331705/12/2310505/11/23193905/11/231446 LACTATEVEN 2.4* 2.7* 2.7* 4.8* 2.9* Mixed Venous Sat Recent Labs 05/12/23 0508 05/12/23 0321 05/12/23 0114 05/12/23 0030 W2UVWX1 30.7 32.7 37.3 25.1 Objective: Vitals Last [...] who have questions please contact the health family day carer that requested your imaging first. Cardiac for [...] who have questions please contact the health family day carer that requested your imaging first. Electronically signed by: Cullen Narayanan MD, [facility] ([phone]), at 05/11/2023 4:[address] Angiogram Abdomen [...] who have questions please contact the health family day carer that requested your imaging first. Electronically signed by: Eileen Gomes MD, [facility] ([phone]), at 05/11/2023 2:42 PM XR Chest One [...] who have questions please contact the health family day carer that requested your imaging first. Electronically signed by: Will Rowe MD, [facility] ([phone]), at 05/11/2023 11:57 PM XR Chest One View (Exam End: 05/12/2023 1:00 [...] who have questions please contact the health family day carer that requested your imaging first. Electronically signed by: Will Rowe MD, [facility] ([phone]), at 05/12/2023 3:16 AM Assessment & Plan: Purnima Thacker is a [...] and inotrope. She is planned for a cfkte-pj-spiyz TAVR this morning, which should hopefully improve [...] MD, FACP, FACC Section of Cardiovascular Medicine [facility] Dance Costume Designercrane operator [facility] [employer] [facility] * Noreen Deutsch RN - 05/12/2023 [...] ejection fraction Mild coronary artery disease by [facility] 11/09/2022 Heart failure with reduced ejection [...] 05/11/2023 4:11 PM EDT Reported off to DENTIST and pt transferred over in the bed for higher level of care. * Antelmo Sharma MD - 05/11/2023 9:45 AM EDT Images from the original note were not included. [facility] [place] [place] [address] STRUCTURAL HEART DISEASE CONSULTATION NOTE PRIMARY CARE [...] who had been referred for possible TAVR xbdrg-sa-lwozy evaluation. Her primary symptoms are of dyspnea [...] otherwise negative. Ms. Thacker is originally from [facility]. 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 She states that, [...] ejection fraction Mild coronary artery disease by [facility] 11/09/2022 Heart failure with reduced ejection [...] 0-8,000 Units Intravenous BOLUS HEPARIN PP Klaudia Ried MD aspirin EC tablet 81 mg 81 [...] hour(s)) Lactate, whole blood, send to lab ([facility] Result Value Ref Range Lactate WB 3.1 (H) 0.5 - 2.2 mmol/L Heparin (unfractionated) Level Result Value Ref Range Heparin UFH Level 0.46 IU/mL Lactate, whole blood, send to lab ([facility] Result Value Ref Range Lactate WB 1.8 [...] leads Confirmed by MD Harshil, Enrique Bell ([id number]) on 05/10/2023 8:11:46 AM Cardiac Cath 11/09/2022 [...] alert Dr. Hudson of her inpatient status, chadron primary cardiac surgeon. Based on recent clinic visit, tentative plan had been for TAVR JANET butwill doublecheck given her chronological age. Cardiac cath 11/09/2022 notable for non-obstructive coronary disease. TAVR CTAs planned for today. Will review her case with cardiac surgery to determine best timing and therapies for her valve intervention. Addendum 05/11/2023 6:48 PM Due to decompensating HFrEF, she was transferred to [place] this afternoon for further management. TAVR CT imaging support for adequate ileofemoral access. Given her acute deterioration today, will planfor RTF TAVR on 05/12/2023. Brody Dale ANURAG Kaplan Structural Heart Disease Pager [phone] Please see addendum by Dr. Sharma for [...] signed and dated. Antelmo Sharma MD Pager [phone] * Harini Lance MD - 05/11/2023 6:06 AM EDT Images from the original note were not included. Cardiology Progress Note Patient info: Name: Purnima Thacker : 1955 PCP: Magdalena Acosta MD PCP phone number: [phone] Date of Admission: 05/08/2023 ( Hospital Day [...] who have questions please contact the health family day carer that requested your imaging first. Electronically signed by: ALIX RUVALCABA MD, [facility] ([phone]), at 05/10/2023 1:25 PM TTE: 05/08 -Left [...] 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) Mild coronary artery disease by [facility] 11/09/2022 Hyperlipidemia, unspecified NICOLAS (obstructive sleep [...] PCP: Magdalena Acosta MD PCP phone number: [phone] Date of Admission: 05/08/2023 ( Hospital Day [...] 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) Mild coronary artery disease by [facility] 11/09/2022 Hyperlipidemia, unspecified NICOLAS (obstructive sleep [...] PCP: Magdalena Acosta MD PCP phone number: [phone] Date of Admission: 05/08/2023 ( Hospital Day [...] Gas) No results found for: PHART, PO2ART, DLQ0GWZ, ASV0HIL Microbiology: Microbiology Results (Last 30 days) No [...] PPx: Diet: Daily Healthy Menu Choices/Cardiac diet ([facility]-Diet) Lines: Peripheral IV Line - Single Lumen [...] 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) Mild coronary artery disease by [facility] 11/09/2022 Hyperlipidemia, unspecified NICOLAS (obstructive sleep [...] Magdalena Acosta MD Referring Provider: Mario Alberto Cihn Planned procedure: Right chest tube placement Procedure [...] fraction I35.0 Mild coronary artery disease by [facility] 11/09/2022 I25.10 Heart failure with reduced ejection fraction due to heart valve disease I50.20, I38 Cardiogenic shock R57.0 S/P TAVR (transcatheter aortic valve replacement) Z95.2 Past Medical History: Diagnosis Date Anemia Past Surgical History: Procedure Laterality Date PRG CATH PLSC LEFT HEART CATH & ARTS W/INJ & ANGIO IMG S&I N/A 11/09/2022 CORONARY ANGIOGRAPHY; W [facility],POSSIBLE PCI (WRVU 5.6) performed by Mario Alberto Escobedo MD at [facility] CATH LABS PRO AORTOPLAS FOR SUPRAVALV STEN N/A 09/21/2016 @AORTOPLASTY FOR SUPRAVALVULAR STENOSIS (WRVU 29.33) performed by Alirio Hudson MD at [facility] MAIN OR PRO REPLACEMENT PROSTHETIC AORTIC VALVE OPEN W CARDIOPULMONARY BYPASS HOMOGRF/STENT N/A 09/21/2016 @REPLACE AORTIC VALVE, OPEN, W\CPB, W\PROSTHETIC VALVE (WRVU 41.32) performed by Alirio Hudson MD at [facility] MAIN OR Social History and Habits: [...] fraction I35.0 Mild coronary artery disease by [facility] 11/09/2022 I25.10 Heart failure with reduced ejection fraction due to heart valve disease I50.20, I38 Cardiogenic shock R57.0 S/P TAVR (transcatheter aortic valve replacement) Z95.2 Past Medical History: Diagnosis Date Anemia Past Surgical History: Procedure Laterality Date PRG CATH PLSC LEFT HEART CATH & ARTS W/INJ & ANGIO IMG S&I N/A 11/09/2022 CORONARY ANGIOGRAPHY; W [facility],POSSIBLE PCI (WRVU 5.6) performed by Mario Alberto Escobedo MD at [facility] CATH LABS PRO AORTOPLAS FOR SUPRAVALV STEN N/A 09/21/2016 @AORTOPLASTY FOR SUPRAVALVULAR STENOSIS (WRVU 29.33) performed by Alirio Hudson MD at [facility] MAIN OR PRO REPLACEMENT PROSTHETIC AORTIC VALVE OPEN W CARDIOPULMONARY BYPASS HOMOGRF/STENT N/A 09/21/2016 @REPLACE AORTIC VALVE, OPEN, W\CPB, W\PROSTHETIC VALVE (WRVU 41.32) performed by Alirio Hudson MD at [facility] MAIN OR Social History and Habits: [...] IR the day of procedure) 05/18/2023 Laure iRcks PA-C * Klaudia Reid MD - 05/08/2023 [...] prompted her to present to [employer] [employer]. She also endorses some intermittent retrosternal chest pain with exertion.She endorses some dizziness with exertion, but has not gotten faint or passed out. At [facility] she was noted to be afebrile, blood pressure 105/64, HR 120s, satting 95% on 2L NC. Labs from [facility] are below, of note she had elevated [...] prompted the transfer to us. [facility] labs: CBC - Hgb 10.5 CMP - Cr 1.1 BNP 79774 HsTrop 1358 Lactate 1.6 D-dimer 1183 Interval History Patient was admitted to [place] due to concern on low BP iso [...] Klaudia Reid MD Internal Medicine PGY-1 Pager [phone], M1-S1 Service Associated attestation - Juan Luis Gonzalez MD - 05/08/2023 10:00 PM EDT Cardiology Attending Addendum Active Hospital Problems Diagnosis Symptomatic severe aortic stenosis with low ejection fraction Heart failure with reduced ejection fraction due to heart valve disease Mild coronary artery disease by [facility] 11/09/2022 Hyperlipidemia, unspecified History of aortic [...] PCP: Magdalena Acosta MD PCP phone number: [phone] Date of Admission: 05/08/2023 ( Hospital Day 0 days ) Attending:Enrique Chua MD ID: Purnima Thacker is a 67 y.o. female w/ PMH of s/p bioprosthetic AVR in 2016 with recent concern for severe restenosis, HTN, HLD, mixed connective tissue disease, who presents in transfer from [facility] with worsening BONILLA and weight gain concerning [...] which promptedher to present to [facility]. She also endorses some intermittent retrosternal chest pain with exertion. She endorses some dizziness with exertion, but has not gotten faint or passed out. At [facility] she was noted to be afebrile, blood pressure 105/64, HR 120s, satting 95% on 2L NC. Labs from [facility] are below, of note she had elevated [...] prompted the transfer to us. [facility] labs: CBC - Hgb 10.5 CMP - Cr 1.1 BNP 39395 HsTrop 1358 Lactate 1.6 D-dimer 1183 Vasoactive [...] [facility] and weight gain concerning for [...] #Routine Diet: Daily Healthy Menu Choices/Cardiac diet ([facility]-Diet) DVT Prophylaxis: heparin gtt GI Prophylaxis: none Code Status: Attempt Cardiopulmonary Resuscitation - Inpatient Dispo: Pending clinical course Linclon Sal MD Internal Medicine, PGY-1 Cardiology CVCC [...] to the planned procedure. Hand Hygiene: The composite mechanic did perform hand hygiene prior to arterial [...] Successful arterial line placement. Crispin Timmons MD Clerk General Office Associated attestation - Onelia Schwartz MD - [...] (flow was non-pulsatile) and appearance of blood. Wild Rose-Marily catheter was placed and locked at 55 [...] discharge to home with family/friend support and [facility], pt will also have FWW delivered to her prior to her d/c. Needs for Transition of Care: Plan for discharge is: Home w/ Services Outpatient Agency/Support Group Needs: Homecare agency Home Health Services: Physical Therapy, Occupational Therapy Agency Referrals & Follow-up Care: Contact information for follow-up Home Health & Hospice, [facility] [address] [place] [address] Cardiac Rehab, [facility] [address] [place] [address] [place] [address] Home Health & Hospice, [facility] [address] [place] [address] Transportation: family or friend will provide *Brother [...] Type: *No Product type* / Secondary Insurance: [employer] [place] Prescription Coverage: Yes This plan was formulated with input from patient, family (please identify family/friend involved ifapplicable) and team. All are in agreement with plan. Aliza Martino MSN-Ed, RN ACM book sewing machine operator Office of Care Management Pager #[phone] * Plan of Care - Favian Mckeon [...] Type: *No Product type* / Secondary Insurance: [employer] [facility] [place] Last Physical Therapy Recommendation: (Home with assist from Brother; Friend arriving Tues) with walker, front wheeled Last Occupational Therapy Recommendation: swing bed rehabilitation facility, usp facility (vs home with support for IADLs) with walker, front wheeled, shower chair Plan for discharge is: Home w/ Services Outpatient Agency/Support Group Needs: Homecare agency Home Health Services: Physical Therapy, Occupational Therapy Agency Referrals: I have met with the patient to: discuss discharge planning needs. describing our affiliations within the [facility] and educate about their right to choose where referrals are sent. provide a list of Home Health Agencies / Durable Medical Equipment vendors which serve their preferred geographic area. They have requested referrals to: [facility] [address] [place] [address] [facility] [place], [place] Note routed to a Chopper Feeder who will communicate referrals to facilities and provide any required information. Transportation: family or friend will provide *Brother Raymond on Tuesday 05/22 at 1000 Barriers to discharge: Does not have home 22/02 assist available until tomorrow Tuesday 05/22 Plan going forward: Discharge home into the 22/02 home care of brother Raymond with [facility] FWW and [facility] PT/OT services on Tuesday 05/22 at [...] Attending: All Staff: Staff Role Juanita Almaguer Chief Of Staff Laure Ricks PA Physician Building Insulation Installer Magdalena Rodriguez mobile product manager Nurse Consuelo Espinoza mobile product manager Nurse Post-operative diagnosis/Indication: Right pleural effusion Name [...] Type: *No Product type* / Secondary Insurance: [facility] [place] Last Physical Therapy Recommendation: usp facility, swing bed rehabilitation facility with to be determined Last Occupational Therapy Recommendation: with Plan for discharge is: Snf Facility / Swing Outpatient Agency/Support Group Needs: None Agency Referrals: Based on discussions with the multi-disciplinary healthcare team, the patient would benefit from SNF / Swing level of care at discharge. I have met with the patient to: discuss discharge planning needs. provide the [facility], Office of Care Management letter from the Ticket Broker pertaining to rehab referrals. provide a letter describing our affiliations within the [facility] and educate about their right to choose where referrals are sent. provide the CMS Star Quality Rating handout. review the different levels of rehab including SNF, swing, and acute. provide a list of facilities within their preferred geographic area. request that they provide at least three choices for referral. They have requested referrals to: [facility] [address] [address] [facility] ([facility]) [address] [place] [address] (Accepts pts only after exhausting all other local SNF options) [facility] (Swing) ([facility]) [address] [place] [address] PHONE: [phone] FAX: [phone] [facility] ([facility]) ([facility]) [address] [place] [address] PHONE: [phone] FAX: [phone] Note routed to a Chopper Feeder who will communicate referrals to facilities and [...] Crenshaw RN - 05/17/2023 10:25 AM EDT [facility] CARDIAC REHABILITATION Purnima Thacker was seen today regarding participation in the outpatient Phase 2 Cardiac Rehabilitation at [facility]. The patient agrees to a referral to [...] from the original note were not included. [facility] NEPHROLOGY/HYPERTENSION CONSULT NOTE PATIENT: Purnima Thacker [...] in her course. She ultimately underwent a aluzz-dh-nvqml procedure on and tolerated it well (see [...] 1423 05/12/23 1105 PHART 7.39 7.37 7.34* SVN1OQI 33* 36 42 PO2ART 101 102 73* DKN2CXR 19.5* 20.4 22.1 LACTATEVEN 1.5 1.8 2.8* ANC6XZL 40 40 40 PFRATIOART2 252 255 182 VBG (Venous Blood Gas) Recent Labs 05/12/23 1557 05/12/23 1423 05/12/23 1105 LACTATEVEN 1.5 1.8 2.8* Mixed Venous Sat Recent Labs 05/12/23 1425 05/12/23 0508 05/12/23 0321 G3AXIB4 59.9 30.7 32.7 LFT's: Recent Labs 05/14/23 0110 05/13/23 0115 05/12/23 0600 BILITOT 0.4 0.5 0.9 BILIDIR -- 0.3 -- ALBUMIN 3.6 3.0* 3.5 ALKPHOS 86 85 100 ALT 437* 903* 1,174* AST 319* 792* 1,435* No results found for: UPROTCREAT No results found for: TPROTEINPEP, ALBELECT No results found for: MICROALBUR, EUGI83NGH No results found for: HA1C Lab Results Component Value Date CALCIUM 8.5 05/14/2023 PHOS 4.7 (H) 05/08/2023 No results found for: 25OHVITD MICROBIOLOGY: ProcedureComponentValueUnitsDate/TimeUrine culture [[id number]]Collected: 05/11/23 1922Lab Status: Final resultSpecimen: Clean Catch [...] consulted for assessment if this patient needs SOLE SKIVER. Atthis time, we can likely hold off on SOLE SKIVER. Her volume status appears sufficient and her metabolic kanwal angements with mild acidosis is not too profound. Patient does not have significant uremic symptoms. We can hold off for today, but the patient is a high risk candidate for needing SOLE SKIVER in future daysespecially if her Cr curve trends the direction it is for the next several days. S/p Qgkbd-bw-Aqrmg TF TAVR: Management per cardiology. On milrinone gtt. PLAN: - Please obtain following diagnostics: renal US, urinalysis, urine prot/Cr ratio, urine albumin/Cr ratio, CK, uric acid, serum osmol, daily VBGs - No acute indications for SOLE SKIVER/dialysis. We will keep close eye on Cr trend, volume status, and metabolics to ensure patient still does not need SOLE SKIVER as she ensues intrinsic renal recovery - [...] M.H.Katherine., M.A. PGY-V Nephrology-Hypertension Fellow Page # [phone] [facility] [address] 2nd floor, Spanish Translator [address] [place] [address] * Care Management - Mario Alberto Olmos [...] Type: *No Product type* / Secondary Insurance: [facility] Plan for discharge is: Home w/o [...] for a TAVR at 730. Returned to [place] at 0945. Was intubated in the laborer cement gun placing due to agitation. Maintained bedrest for 5 [...] PM EDT Brief Operative Note Patient Name: uPrnima Thacker : [id number] MR#: [id number] Case Date: 05/12/2023 Surgeon: Surgeon(s) and Role: [...] procedure Note: Patient Name: Purnima Thacker : [id number] MR#: [id number] Case Date: 05/12/2023 Operators Surgeon: Surgeon(s) and [...] main with 4.0 x 30 mm Resolute [place] Drug Eluting Stent Perclose x1 + Angio-seal 8 Fr x1, RFA Manual pressure, LFA Manual pressure, LFV Endotracheal intubation (performed by cardiac anesthesia) Preliminary findings: Successful right transfemoral TAVR Wrgxi-ko-Lqxis with a 23 mm Lai 3 THV. [...] MD, M.Sc. Structural Heart Disease Fellow Pager :[phone] Antelmo Sharma MD Pager [phone] * Op Note - Alirio Hudson MD - 05/12/2023 7:37 AM EDT Preop Diagnosis: Severe aortic stenosis, symptomatic. Postop Diagnosis: Same. Procedure: Transfemoral TAVR procedure with 23mm valve. Surgeon: Alirio Hudson M.D. Director Of Compliance: Danny CULP Procedure: The patient was taken to the laborer cement gun placing. The patient had monitored anesthesia care. 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 [facility] [place] [address] [place] [address] STRUCTURAL HEART DISEASE CONSULTATION NOTE PRIMARY CARE [...] who had been referred for possible TAVR fxeru-wm-tnozl evaluation. Her primary symptoms are of dyspnea [...] otherwise negative. Ms. Thacker is originally from [facility]. 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 PROBLEM LIST: Patient Active Problem List Diagnosis Symptomatic severe aortic stenosis with low ejection fraction Mild coronary artery disease by [facility] 11/09/2022 Heart failure with reduced ejection [...] 0.5 mL Intramuscular Prior to discharge Klaudia eRid MD potassium chloride ER (Klor-Con M) crystal [...] hour(s)) Lactate, whole blood, send to lab ([facility] Result Value Ref Range Lactate WB 1.8 [...] leads Confirmed by MD Harshil, Enrique Bell ([id number]) on 05/10/2023 8:11:46 AM Assessment and Plan: [...] Antelmo Sharma MD Structural Heart Disease Pager [phone] * Plan of Care - Sarahi Nice RN - 05/10/2023 3:55 AM Bin: VALDO Note and Care Plan Sarahi Nice RN assumed care of pt at time of their arrival to room 362 from [place]. Pt voices shortness of breath at time [...] listening utilized Taken 05/08/20231999 by Alivia Kauffman vocational horticulture instructor/Support System Care: self-care encouraged support provided Problem: [...] Manage Obstructive Sleep Apnea Flowsheets (Taken 05/09/2023 7195) NPPV/CPAP Maintenance: home PAP equipment/settings used * Initial Assessments - Alie Bradshaw RN - 05/09/2023 3:42 PM EDT Office of Care Management Initial Assessment Alie Bradshaw RN reviewed record and discussed patient with Care Team. Source of Information: Team, bedside nurse, medical record, and Patient Introduced self/reviewed role; services accepted. Admitted From: Transfer from another hospital Location: admitted from [facility] Reason for Hospitalization: Critical aortic stenosis, causing symptoms Past medical History: Past Medical History: Diagnosis Date Anemia Hospitalizations Within the Past 30 Days: no previous admission in last 30 days Current Decision-Making Capacity: Self If AD's have not been completed the following surrogate would be surrogate decision maker per [place] decision making law. (Only good for 180 days) Any patient receiving care in [place] must abide by [place] law. The hierarchy for surrogate decision making [...] (i) The agent with financial power of insurance defense attorney or a conservator appointed in accordance [...] DME: none Home Address confirmed as: [address] [address] Social & Family Supports: All names listed [...] Type: *No Product type* / Secondary Insurance: [employer] [facility] [place] ONLY if patient has Medicare A&B - Does this patient have secondary insurance?: Yes ; Prescription Coverage: Yes Preferred Pharmacy: updated to [facility] [place] Status: Patient is a : No Primary Care Provider confirmed: Magdalena Acotsa MD [phone] Patient/Caregiver Goals of Treatment: Potential Needs for [...] transition of care planning. Alie Bradshaw RN, Pager-[phone] * Plan of Care - Emily Lucero RN - 05/08/2023 2:54 PM EDT OUTCOME EVALUATION NOTE: OUTCOME SUMMARY: Pt arrived from [facility]. A&O, no c/o pain or SOB. Heparin [...] PM EDT Office Visit Dermatology at [address] [place] [phone] Marek Bonilla MD [address] [place] [address] 06/05/2024 11:30 AM EST Office [place] [phone] Magdalena Peralta MD [facility] RHEUMATOLOGY [place] [address] Scheduled Referrals Name Type Priority Associated Diagnoses [...] Heart Cath W/Inj L Ventriculography, Img S&I ([id number]) 05/12/2023 7:37 AM EDT Aortic valve stenosis, [...] DOPP (07/08/2023 12:15 PM EST) EF 20 [employer] Anatomical Region Laterality Modality Cardiac Other 07/08/2023 10:3 1 AM EST Narrative 07/08/2023 12:26 PM EST [address] [id number] ? Echocardiogram Report Name: PURNIMA THACKER ?Study Date: 07/08/2023 10:31 AMBP: 118/60 mmHg ? Patient Location: : 1955 ? Height: 155 cm ? Account: [id number] Age: 67 yrs ? Weight: 74 kg Gender: Female ?BSA: 1.7 m2 Ordering Physician: ALIRIO HUDSON Referring Physician: VINOD JUÁREZ Performed By: Felicia Norris RODOLFO Reason For Study: S/P TAVR Exam Location: [facility]. Interpretation Summary Left ventricular systolic function is [...] no significant change (post-procedure). Procedure Limited - 27526. Doppler - 23629. Color Doppler - 37086. Satisfactory quality. This study is limited because [...] Note Lee Kincaid MD - 07/08/2023 [address] [id number] Echocardiogram Report Name: PURNIMA THACKER Study Date: 0:31 AMBP: 118/60 mmHg Patient Location: : 1955 Height: 155 cm Account: [id number] Age: 67 yrs Weight: 74 kg Gender: Female BSA: 1.7 m2 Ordering Physician: ALIRIO HUDSON Referring Physician: VINOD JUÁREZ Performed By: Felicia Norris RDCS Reason For Study: S/P TAVR Exam Location: [facility]. Interpretation Summary Left ventricular systolic function is [...] is nosignificant change (post-procedure). Procedure Limited - 09059. Doppler - 77449. Color Doppler - 95158. Satisfactoryquality. This study is limited because of [...] Lab Alirio Hudson MD CHEMISTRY ORDERABLE S [facility] [place] [address] * (ABNORMAL) Basic Metabolic Panel (non-fasting) (05/22/2023 3:57 AM EDT) Glucose Lvl 88 65 - 199 mg/dL [facility] Comment:Diabetes: >=200 mg/d L plus symptoms BUN 21(H) 8 - 18 mg/dL [facility] Creatinine 0.69(L) 0.70 - 1.20 mg/dL [facility] Sodium 136 135 - 145 mmol/L [facility] Potassium 3.6 3.5 - 5.0 mmol/L [facility] Comment: Please note: ??Patients with WBC >100,000 may have falsely elevated Potassium levels. ??For accurate Potassium quantification in these patients send serum separator tube (gold top) for subsequent determinations. ??Contact the Clinical Chemistry Laboratory if there are any questions. Chloride 102 98 - 107 mmol/L [facility] CO2 23 22 - 31 mmol/L [facility] Anion Gap 11 5 - 15 mmol/L [facility] Calcium 8.6 8.5 - 10.5 mg/dL [facility] Estimated GFR 95 >=60 mL/min/1. 73 m?? [facility] [...] Lab Mara Serrano APRN CHEMISTRY ORDERABL ES [facility] [place] [address] * (ABNORMAL) Basic Metabolic Panel (non-fasting) (05/21/2023 5:06 AM EDT) Glucose Lvl 87 65 - 199 mg/dL [facility] Comment:Diabetes: >=200 mg/d L plus symptoms BUN 25(H) 8 - 18 mg/dL [facility] Creatinine 0.84 0.70 - 1.20 mg/dL [facility] Sodium 136 135 - 145 mmol/L [facility] Potassium 3.6 3.5 - 5.0 mmol/L [facility] Comment: Please note: ??Patients with WBC >100,000 may have falsely elevated Potassium levels. ??For accurate Potassium quantification in these patients send serum separator tube (gold top) for subsequent determinations. ??Contact the Clinical Chemistry Laboratory if there are any questions. Chloride 102 98 - 107 mmol/L [facility] CO2 26 22 - 31 mmol/L [facility] Anion Gap 8 5 - 15 mmol/L [facility] Calcium 8.9 8.5 - 10.5 mg/dL [facility] Estimated GFR 76 >=60 mL/min/1. 73 m?? [facility] [...] Lab Mara Serrano ANURAG CHEMISTRY ORDERABL ES [facility] [place] [address] * Lavender Tube HOLD (05/20/2023 2:52 AM EDT) Pathologist [facility] Lavender Hold Sample in lab. [facility] Blood Venous Draw / Unknown 05/20/2023 2:52 AM EDT 05/20/2023 3:04 AM EDT Mara Serrano APRN HEMATOLOGY ORDERAB LES [facility] [place] [address] * (ABNORMAL) Basic Metabolic Panel (non-fasting) (05/20/2023 2:52 AM EDT) [facility] Glucose Lvl 152 65 - 199 mg/dL [facility] Comment:Diabetes: >=200 mg/d L plus symptoms BUN 33(H) 8 - 18 mg/dL [facility] Creatinine 0.82 0.70 - 1.20 mg/dL [facility] Sodium 137 135 - 145 mmol/L [facility] Potassium 3.7 3.5 - 5.0 mmol/L [facility] Comment: Please note: ??Patients with WBC >100,000 may have falsely elevated Potassium levels. ??For accurate Potassium quantification in these patients send serum separator tube (gold top) for subsequent determinations. ??Contact the Clinical Chemistry Laboratory if there are any questions. Chloride 99 98 - 107 mmol/L [facility] CO2 22 22 - 31 mmol/L [facility] Anion Gap 16(H) 5 - 15 mmol/L [facility] Calcium 9.0 8.5 - 10.5 mg/dL [facility] Estimated GFR 78 >=60 mL/min/1. 73 m?? [facility] [...] Agency Comment Spec In Lab Mara Thomasfield ASSURANCE SENIOR MANAGER CHEMISTRY ORDERABL ES Performing Organization Address [facility] Phone Number [facility] [place] [address] * (ABNORMAL) Potassium (05/20/2023 2:52 AM EDT) [facility] Potassium 3.4(L) 3.5 - 5.0 mmol/L [facility] APRN CHEMISTRY ORDERABL ES Performing Organization Address [facility] Phone Number [facility] [place] [address] * XR Chest PA & Lateral (Generic) [...] who have questions please contact the health family day carer that requested your imaging first. ? Electronically signed by: Chyna Johnson MD, [facility] ??([phone]), at 05/19/2023 2:19 PM Narrative 05/19/2023 2:19 [...] patients who have questions please contactthe health family day carer that requested your imaging first. Electronically signed by: Chyna Johnson MD, [facility]([phone]), at 05/19/2023 2:19 PM Alirio Hudson MD IMG DX ORDERABLES * (ABNORMAL) Basic Metabolic Panel (non-fasting) (05/19/2023 5:49 AM EDT) Glucose Lvl 93 65 - 199 mg/dL [facility] Comment:Diabetes: >=200 mg/d L plus symptoms BUN 45(H) 8 - 18 mg/dL [facility] Creatinine 1.02 0.70 - 1.20 mg/dL [facility] Sodium 138 135 - 145 mmol/L [facility] Potassium 3.9 3.5 - 5.0 mmol/L [facility] Comment: Please note: ??Patients with WBC >100,000 may have falsely elevated Potassium levels. ??For accurate Potassium quantification in these patients send serum separator tube (gold top) for subsequent determinations. ??Contact the Clinical Chemistry Laboratory if there are any questions. Chloride 102 98 - 107 mmol/L [facility] CO2 26 22 - 31 mmol/L [facility] Anion Gap 10 5 - 15 mmol/L [facility] Calcium 9.7 8.5 - 10.5 mg/dL [facility] Estimated GFR 60 >=60 mL/min/1. 73 m?? [facility] [...] Agency Comment Spec In Lab Mara Serrano ASSURANCE SENIOR MANAGER CHEMISTRY ORDERABL ES [facility] [place] [address] * IR Chest Tube Placement Right (05/18/2023 [...] Glucose Lvl 95 65 - 199 mg/dL [facility] Comment:Diabetes: >=200 mg/d L plus symptoms BUN 71(H) 8 - 18 mg/dL [facility] Comment:result rechecked-JSJ Creatinine 1.64(H) 0.70 - 1.20 mg/dL [facility] Comment:result rechecked-JSJ Sodium 137 135 - 145 mmol/L [facility] Potassium 3.7 3.5 - 5.0 mmol/L [facility] Comment: Please note: ??Patients with WBC >100,000 may have falsely elevated Potassium levels. ??For accurate Potassium quantification in these patients send serum separator tube (gold top) for subsequent determinations. ??Contact the Clinical Chemistry Laboratory if there are any questions. Chloride 100 98 - 107 mmol/L [facility] CO2 24 22 - 31 mmol/L [facility] Anion Gap 13 5 - 15 mmol/L [facility] Calcium 9.7 8.5 - 10.5 mg/dL [facility] Estimated GFR 34(L) >=60 mL/min/1. 73 m?? [facility] [...] Agency Comment Spec In Lab Mara Serrano ASSURANCE SENIOR MANAGER CHEMISTRY ORDERABL ES [facility] [place] [address] * XR Chest PA & Lateral (Generic) [...] who have questions please contact the health family day carer that requested your imaging first. ? Narrative [...] patients who have questions please contactthe health family day carer that requested your imaging first. Electronically signed by: Ghassan Reyes MD, [facility]([phone]), at 05/17/2023 11:46 AM Alirio Hudson MD IMG DX ORDERABLES * (ABNORMAL) Comprehensive metabolic panel (non-fasting) (05/17/2023 4:35 AM EDT) Glucose Lvl 89 65 - 199 mg/dL [facility] Comment:Diabetes: >=200 mg/d L plus symptoms BUN 97(H) 8 - 18 mg/dL [facility] Creatinine 2.97(H) 0.70 - 1.20 mg/dL [facility] Comment:result rechecked-JSJc Sodium 135 135 - 145 mmol/L [facility] Potassium 4.1 3.5 - 5.0 mmol/L [facility] Comment: Please note: ??Patients with WBC >100,000 may have falsely elevated Potassium levels. ??For accurate Potassium quantification in these patients send serum separator tube (gold top) for subsequent determinations. ??Contact the Clinical Chemistry Laboratory if there are any questions. Chloride 97(L) 98 - 107 mmol/L [facility] CO2 22 22 - 31 mmol/L [facility] Anion Gap 16(H) 5 - 15 mmol/L [facility] Calcium 9.6 8.5 - 10.5 mg/dL [facility] Total Protein 6.5 6.1 - 8.0 g/dL [facility] Albumin 3.7 3.2 - 5.2 g/dL [facility] AST 58(H) 0 - 30 unit/L [facility] ALT 66(H) 0 - 30 unit/L [facility] Alk Phos 86 35 - 105 unit/L [facility] Total Bilirubin 0.6 0.2 - 1.3 mg/dL [facility] Estimated GFR 17(L) >=60 mL/min/1. 73 m?? [facility] [...] Lab Alirio Hudson MD CHEMISTRY ORDERABLE S [facility] [place] [address] * Potassium (05/16/2023 11:15 PM EDT) Pathologist [facility] Potassium 3.7 3.5 - 5.0 mmol/L [facility] [...] Lab Alirio Hudson MD CHEMISTRY ORDERABLE S [facility] [place] [address] * Magnesium (05/16/2023 5:22 PM EDT) [facility] Magnesium 0.96 0.69 - 1.07 mmol/L [facility] Blood 05/16/2023 5:22 PM EDT 05/16/2023 5:27 PM EDT Narrative Resulting Agency Comment Spec In Lab Alirio Hudson MD CHEMISTRY ORDERABLE S Performing Organization Address City/[facility]/ZIP Co de Phone Number [facility] [place] [address] * (ABNORMAL) Basic Metabolic Panel (non-fasting) (05/16/2023 5:22 PM EDT) Pathologist [facility] Glucose Lvl 106 65 - 199 mg/dL [facility] Comment:Diabetes: >=200 mg/d L plus symptoms BUN 103(H) 8 - 18 mg/dL [facility] Creatinine 3.91(H) 0.70 - 1.20 mg/dL [facility] Comment:result rechecked-imm Sodium 132(L) 135 - 145 mmol/L [facility] Potassium 3.6 3.5 - 5.0 mmol/L [facility] Comment: Please note: ??Patients with WBC >100,000 may have falsely elevated Potassium levels. ??For accurate Potassium quantification in these patients send serum separator tube (gold top) for subsequent determinations. ??Contact the Clinical Chemistry Laboratory if there are any questions. Chloride 92(L) 98 - 107 mmol/L [facility] CO2 22 22 - 31 mmol/L [facility] Anion Gap 18(H) 5 - 15 mmol/L [facility] Calcium 9.7 8.5 - 10.5 mg/dL [facility] Estimated GFR 12(L) >=60 mL/min/1. 73 m?? [facility] [...] Lab Alirio Hudson MD CHEMISTRY ORDERABLE S [facility] [place] [address] * (ABNORMAL) Potassium (05/16/2023 11:43 AM EDT) Potassium 3.3(L) 3.5 - 5.0 mmol/L [facility] [...] Lab Alirio Hudson MD CHEMISTRY ORDERABLE S [facility] [place] [address] * (ABNORMAL) Ferritin (05/16/2023 4:41 AM EDT) Pathologist [facility] Ferritin 1,813(H) 30 - 400 ng/mL [facility] Comment: Pediatric reference ranges not verified at [facility], interpret with caution. Reference ranges for females greater than 50 years of age approach values for men, i.e., 30-400 ng/mL. Blood 05/16/2023 4:41 AM EDT 05/16/2023 4:54 AM EDT Narrative Resulting Agency Comment Spec In Lab Kristopher Ayoub MD CHEMISTRY ORDERABLES [facility] [place] [address] * (ABNORMAL) PTH (05/16/2023 4:41 AM EDT) [facility] PTH 120(H) 15 - 65 pg/mL [facility] Blood 05/16/2023 4:41 AM EDT 05/16/2023 4:54 AM EDT Narrative Resulting Agency Comment Spec In Lab Kristopher Ayoub MD CHEMISTRY ORDERABLES [facility] [place] [address] * Vitamin D, 25-Hydroxy (05/16/2023 4:41 AM EDT) Pathologist [facility] 25-OH Vit D Total 33 21 - 100 ng/mL [facility] 25-OH Vit D Interp Sufficient [facility] Blood 05/16/2023 4:41 AM EDT 05/16/2023 4:54 AM EDT Narrative Resulting Agency Comment Spec In Lab Kristopher Ayoub MD CHEMISTRY ORDERABLES [facility] [place] [address] * (ABNORMAL) Blood Gas Venous ([facility]) (05/16/2023 4:22 AM EDT) pH Mike 7.41 7.32 - 7.42 [facility] pCO2 Mike 32(L) 41 - 51 mmHg [facility] pO2 Mike 73(H) 25 - 40 mmHg [facility] HCO3 Mike 19.6 mmol/L [facility] BE Mike -5.1 mmol/L [facility] Hgb Blood Gas 9.7(L) 11.7 - 15.5 g/dL [facility] O2HB Mike 92.8 % [facility] COHB Mike 0.1 % [facility] Comment: Nonsmokers: 0.5-1.5% COHB Smokers: Variable, but usually less than 10% Toxic: 20-30% COHB Lethal: Greater than 60% COHB METHB Mike 0.3 <=1.5 % [facility] Na Whole Blood 130(L) 135 - 145 mmol/L [facility] K Whole Blood 3.7 3.5 - 5.0 mmol/L [facility] Comment: Please note: Patients with WBC >100,000 may have falsely elevated Potassium levels. Contact the Clinical Chemistry Laboratory if there are any questions. ICa Whole Blood 1.15 1.15 - 1.33 mmol/L [facility] Comment: Note: ??Total bilirubin higher than 20 mg/dL may lead to falsely low ionized calcium. CL Whole Blood 95(L) 98 - 107 mmol/L [facility] Gluc Whole Bld 82 65 - 199 mg/dL [facility] Comment:Diabetes: >=200 mg/d L plus symptoms Lactate WB 1.1 0.5 - 2.2 mmol/L [facility] BGas Source Venous [facility] Blood Venous Draw / Unknown 05/16/2023 4:22 AM EDT 05/16/2023 4:31 AM EDT Narrative Resulting Agency Comment Spec In Lab Bonita TOBAR CHEMISTRY ORDERABLES [facility] [place] [address] * (ABNORMAL) Differential, Automated (05/16/2023 4:20 AM EDT) Neutrophils % 84.1 % [facility] Neutr Abs (ANC) 6.22(H) 1.70 - 6.10 x10(3)/[facility] LABORATORY Lymphocytes % 5.8 % [facility] Lymphocytes Abs 0.4(L) 0.9 - 3.2 x10(3)/[facility] LABORATORY Monocytes % 8.8 % [facility] Monocyte Abs 0.6 0.3 - 0.9 x10(3)/[facility] LAB[facility]ORY Eosinophils % 0.4 % [facility] Eosinophils Abs 0.0 0.0 - 0.4 x10(3)/[facility] Basophils % 0.0 % [facility] Basophils Abs 0.0 0.0 - 0.1 x10(3)/[facility] LABORATORY Immature Gran % 0.90 % [facility] Comment: Immature granulocytes(IG's)percentage and absolute count will include metamyelocytes, myelocytes, and promyelocytes. Blood smears from CBCs yielding IG's will be scanned manually for concordance. If this scan disagrees with the automated IG or if promyelocytes are noted, a manual differential will be performed. Amanda Gran Abs 0.07(H) 0.00 - 0.04 x10(3)/ L [facility] Blood 05/16/2023 4:20 AM EDT 05/16/2023 4:29 AM EDT Narrative Resulting Agency Comment Spec In Lab James Agustin MD HEMATOLOGY ORDER JODIE [facility] [place] [address] * (ABNORMAL) Hemogram (05/16/2023 4:20 AM EDT) WBC 7.4 4.0 - 9.5 x10(3)/[facility] LABORATORY RBC 2.40(L) 4.00 - 5.21 x10(6)/[facility] Hemoglobin 7.8(L) 11.7 - 15.5 g/dL [facility] Hematocrit 22.5(L) 35.7 - 45.8 % [facility] MCV 93.8 82.6 - 94.4 [facility] LAB[facility]ATORY MCH 32.5(H) 27.1 - 32.0 pg [facility] MCHC 34.7 31.7 - 35.0 g/dL [facility] Platelets 120(L) 145 - 357 x10(3)/[facility] LABORATORY RDWSD 42.9 37.0 - 46.0 [facility] LAB[facility]ATORY RDWCV 12.9 11.5 - 14.1 % [facility] MPV 11.3 7.6 - 12.9 [facility] LAB[facility]ATORY nRBC % Auto 0.7 % [facility] nRBC Abs Auto 0.050(H) 0.000 - 0.000 x10(3)/[facility] LAB[facility]ORY Blood 05/16/2023 4:20 AM EDT 05/16/2023 4:29 AM EDT Narrative Resulting Agency Comment Spec In Lab James Agustin MD HEMATOLOGY ORDER JODIE [facility] [place] [address] * (ABNORMAL) Basic Metabolic Panel (non-fasting) (05/16/2023 4:20 AM EDT) Glucose Lvl 89 65 - 199 mg/dL [facility] Comment:Diabetes: >=200 mg/d L plus symptoms BUN 108(H) 8 - 18 mg/dL [facility] Creatinine 4.74(H) 0.70 - 1.20 mg/dL [facility] Comment:result rechecked-OLIVA Sodium 132(L) 135 - 145 mmol/L [facility] Potassium 3.9 3.5 - 5.0 mmol/L [facility] Comment: Please note: ??Patients with WBC >100,000 may have falsely elevated Potassium levels. ??For accurate Potassium quantification in these patients send serum separator tube (gold top) for subsequent determinations. ??Contact the Clinical Chemistry Laboratory if there are any questions. Chloride 95(L) 98 - 107 mmol/L [facility] CO2 18(L) 22 - 31 mmol/L [facility] Anion Gap 19(H) 5 - 15 mmol/L [facility] Calcium 9.2 8.5 - 10.5 mg/dL [facility] Estimated GFR 10(L) >=60 mL/min/1. 73 m?? [facility] MD CHEMISTRY ORDERABLE S Performing Organization Address City/[facility]/ZIP Co de Phone Number [facility] [place] [address] * (ABNORMAL) Iron and TIBC (05/16/2023 4:20 AM EDT) Pathologist [facility] Iron 31 30 - 150 mcg/dL [facility] TIBC 259 250 - 450 mcg/dL [facility] Iron Saturation 12(L) 20 - 50 % [facility] Blood 05/16/2023 4:20 AM EDT 05/16/2023 4:29 AM EDT Narrative Resulting Agency Comment Spec In Lab Kristopher Ayoub MD CHEMISTRY ORDERABLES Performing Organization Address [facility] Co de Phone Number [facility] [place] [address] * (ABNORMAL) Basic Metabolic Panel (non-fasting) (05/15/2023 12:50 AM EDT) [facility] Glucose Lvl 101 65 - 199 mg/dL [facility] Comment:Diabetes: >=200 mg/d L plus symptoms BUN 109(H) 8 - 18 mg/dL [facility] Creatinine 5.62(H) 0.70 - 1.20 mg/dL [facility] Comment:result rechecked-KS Sodium 131(L) 135 - 145 mmol/L [facility] Comment:result rechecked-KS Potassium 3.7 3.5 - 5.0 mmol/L [facility] Comment: result rechecked-KS Please note: ??Patients with WBC >100,000 may have falsely elevated Potassium levels. ??For accurate Potassium quantification in these patients send serum separator tube (gold top) for subsequent determinations. ??Contact the Clinical Chemistry Laboratory if there are any questions. Chloride 92(L) 98 - 107 mmol/L [facility] Comment:result rechecked-KS CO2 18(L) 22 - 31 mmol/L [facility] Comment:result rechecked-KS Anion Gap 21(H) 5 - 15 mmol/L [facility] Calcium 8.9 8.5 - 10.5 mg/dL [facility] Estimated GFR 8(L) >=60 mL/min/1. 73 m?? [facility] [...] Lab Alirio Hudson MD CHEMISTRY ORDERABLE S [facility] [place] [address] * (ABNORMAL) Hemogram (05/15/2023 12:50 AM EDT) WBC 9.1 4.0 - 9.5 x10(3)/[facility] RBC 2.19(L) 4.00 - 5.21 x10(6)/[facility] Hemoglobin 7.2(L) 11.7 - 15.5 g/dL [facility] Hematocrit 20.6(L) 35.7 - 45.8 % [facility] MCV 94.1 82.6 - 94.4 fL [facility] MCH 32.9(H) 27.1 - 32.0 pg [facility] MCHC 35.0 31.7 - 35.0 g/dL [facility] Platelets 109(L) 145 - 357 x10(3)/[facility] RDWSD 43.6 37.0 - 46.0 fL [facility] RDWCV 12.9 11.5 - 14.1 % [facility] MPV 10.4 7.6 - 12.9 fL [facility] nRBC % Auto 2.1 % [facility] nRBC Abs Auto 0.190(H) 0.000 - 0.000 x10(3)/[facility] Blood 05/15/2023 12:5 0 AM EDT 05/15/2023 12:52 AM EDT Narrative Resulting Agency Comment Spec In Lab Alirio Hudson MD HEMATOLOGY ORDERABL ES [facility] [place] [address] * (ABNORMAL) BLOOD GAS 2 VENOUS (05/15/2023 12:49 AM EDT) pH Mike 7.33 7.32 - 7.42 [facility] pCO2 Mike 37(L) 41 - 51 mmHg [facility] pO2 Mike 34 25 - 40 mmHg [facility] HCO3 Mike 19.1 mmol/L [facility] BE Mike -6.8 mmol/L [facility] Hgb Blood Gas 10.8(L) 11.7 - 15.5 g/dL [facility] O2HB Mike 58.1 % [facility] COHB Mike 0.3 % [facility] Comment: Nonsmokers: 0.5-1.5% COHB Smokers: Variable, but usually less than 10% Toxic: 20-30% COHB Lethal: Greater than 60% COHB METHB Mike 0.6 <=1.5 % [facility] Na Whole Blood 136 135 - 145 mmol/L [facility] K Whole Blood 3.7 3.5 - 5.0 mmol/L [facility] Comment: Please note: Patients with WBC >100,000 may have falsely elevated Potassium levels. Contact the Clinical Chemistry Laboratory if there are any questions. ICa Whole Blood 1.12(L) 1.15 - 1.33 mmol/L [facility] Comment: Note: ??Total bilirubin higher than 20 mg/dL may lead to falsely low ionized calcium. CL Whole Blood 95(L) 98 - 107 mmol/L [facility] Gluc Whole Bld 101 65 - 199 mg/dL [facility] Comment:Diabetes: >=200 mg/d L plus symptoms Lactate WB 1.3 0.5 - 2.2 mmol/L [facility] Flow Mike 1.0 LPM [facility] BGas Source Venous [facility] Blood 05/15/2023 12:4 9 AM EDT 05/15/2023 12:49 AM EDT Alirio Hudson MD CHEMISTRY ORDERABLE S Performing Organization Address City/State/[facility] Co de Phone Number [facility] [place] [address] * US Retroperitoneal Complete (05/14/2023 3:53 PM [...] PM Electronically signed by: Hayden Robledo MD, [facility] ([phone]), at 05/14/2023 4:32 PM Thank you for letting us participate in the care of this patient. If you are a health care provider and have any questions regarding this report, please contact the number above. For patients who have questions, please contact the health family day carer that requested your imaging first. ? Hayden Robledo, Staff Physician Electronically Signed Final Report ?? 05/14/2023 04:39 pm Narrative 05/14/2023 4:39 PM EDT Renal ? (Signed Final 05/14/2023 04:39 pm) PATIENT INFO: ID #: ? [id number] ?: ??[birth year] (67 yrs)(F) Name: ? PURNIMAMARIZA THACKER ?Visit Date: 05/14/2023 03:44 pm PERFORMED BY: Attending: ?Meena CULP, Hayden Stafford Resident: ? Nell CULP, Anand August Performed By: ? Consuelo Tello RDMS Referred By: ?ALIRIO HUDSON Location: ? [place] SERVICE(S) PROVIDED: URETRO - Retroperitoneal Complete - [id number] ? [id number] INDICATIONS: EVANS COMPARISON: CT: Abdomen/Pelvis 05/11/23 RIGHT [...] 05/14/2023 04:39 pm) PATIENT INFO: ID #: [id number] : [birth year] (67 yrs)(F) Name: PURNIMA THACKER Visit Date: 05/14/2023 03:44 pm PERFORMED BY: Attending: Hayden Robledo MD Resident: Anand Camejo MD Performed By: Consuelo Tello RDMS Referred By: ALIRIO HUDSON Location: [place] SERVICE(S) PROVIDED: URETRO - Retroperitoneal Complete - [id number] INDICATIONS: EVANS COMPARISON: CT: Abdomen/Pelvis 05/11/23 RIGHT [...] PM Electronically signed by: Hayden Robledo MD, [facility] ([phone]), at 05/14/2023 4:32 PM Thank you for letting us participate in the care of this patient. If you are a health care provider and have any questions regarding this report, please contact the number above. For patients who have questions, please contact the health family day carer that requested your imaging first. Hayden Robledo, Staff Physician Electronically Signed Final Report 05/14/2023 04:39 pm Alirio Hudson MD IMG US GEN ORDERABL ES * CK (05/14/2023 3:17 PM EDT) CK, Total 123 0 - 160 unit/L [facility] Blood 05/14/2023 3:17 PM EDT 05/14/2023 3:31 PM EDT Narrative Resulting Agency Comment Spec In Lab Alirio Hudson MD CHEMISTRY ORDERABLE S [facility] [place] [address] * (ABNORMAL) Uric acid (05/14/2023 3:17 PM EDT) Uric Acid 14.9(H) 2.5 - 6.5 mg/dL [facility] Blood 05/14/2023 3:17 PM EDT 05/14/2023 3:31 PM EDT Narrative Resulting Agency Comment Spec In Lab Alirio Hudson MD CHEMISTRY ORDERABLE S Performing Organization Address City/[facility]/ZIP Co de Phone Number [facility] [place] [address] * (ABNORMAL) Osmolality (05/14/2023 3:17 PM EDT) Osmolality 311(H) 275 - 295 mOsm/kg [facility] Blood 05/14/2023 3:17 PM EDT 05/14/2023 3:31 PM EDT Narrative Resulting Agency Comment Spec In Lab Alirio Hudson MD CHEMISTRY ORDERABLE S Performing Organization Address City/[facility]/ZIP Co de Phone Number [facility] [place] [address] * (ABNORMAL) Differential, Automated (05/14/2023 1:10 AM EDT) Neutrophils % 87.2 % [facility] Neutr Abs (ANC) 9.74(H) 1.70 - 6.10 x10(3)/[facility] Lymphocytes % 3.9 % [facility] Lymphocytes Abs 0.4(L) 0.9 - 3.2 x10(3)/[facility] Monocytes % 7.9 % [facility] Monocyte Abs 0.9 0.3 - 0.9 x10(3)/[facility] Eosinophils % 0.0 % [facility] Eosinophils Abs 0.0 0.0 - 0.4 x10(3)/[facility] Basophils % 0.1 % [facility] Basophils Abs 0.0 0.0 - 0.1 x10(3)/[facility] Immature Gran % 0.90 % [facility] Comment: Immature granulocytes(IG's)percentage and absolute count will include metamyelocytes, myelocytes, and promyelocytes. Blood smears from CBCs yielding IG's will be scanned manually for concordance. If this scan disagrees with the automated IG or if promyelocytes are noted, a manual differential will be performed. Amanda Gran Abs 0.10(H) 0.00 - 0.04 x10(3)/[facility] Blood 05/14/2023 1:10 AM EDT 05/14/2023 1:24 AM EDT Narrative Resulting Agency Comment Spec In Lab Bonita TOBAR HEMATOLOGY ORDERABLE S [facility] [place] [address] * (ABNORMAL) Hemogram (05/14/2023 1:10 AM EDT) WBC 11.2(H) 4.0 - 9.5 x10(3)/[facility] RBC 2.19(L) 4.00 - 5.21 x10(6)/[facility] Hemoglobin 7.2(L) 11.7 - 15.5 g/dL [facility] Hematocrit 20.3(L) 35.7 - 45.8 % [facility] MCV 92.7 82.6 - 94.4 fL [facility] MCH 32.9(H) 27.1 - 32.0 pg [facility] MCHC 35.5(H) 31.7 - 35.0 g/dL [facility] Platelets 112(L) 145 - 357 x10(3)/[facility] RDWSD 41.4 37.0 - 46.0 [facility] RDWCV 12.5 11.5 - 14.1 % [facility] MPV 10.4 7.6 - 12.9 [facility] nRBC % Auto 1.5 % [facility] nRBC Abs Auto 0.170(H) 0.000 - 0.000 x10(3)/[facility] Blood 05/14/2023 1:10 AM EDT 05/14/2023 1:24 AM EDT Narrative Resulting Agency Comment Spec In Lab Bonita TOBAR HEMATOLOGY ORDERABLE S Performing Organization Address City/State/[facility] Co de Phone Number [facility] [place] [address] * (ABNORMAL) Comprehensive metabolic panel (non-fasting) (05/14/2023 1:10 AM EDT) Glucose Lvl 120 65 - 199 mg/dL [facility] Comment:Diabetes: >=200 mg/d L plus symptoms BUN 98(H) 8 - 18 mg/dL [facility] Creatinine 4.80(H) 0.70 - 1.20 mg/dL [facility] Comment:result rechecked-ssc Sodium 132(L) 135 - 145 mmol/L [facility] Potassium 4.1 3.5 - 5.0 mmol/L [facility] Comment: Please note: ??Patients with WBC >100,000 may have falsely elevated Potassium levels. ??For accurate Potassium quantification in these patients send serum separator tube (gold top) for subsequent determinations. ??Contact the Clinical Chemistry Laboratory if there are any questions. Chloride 94(L) 98 - 107 mmol/L [facility] CO2 18(L) 22 - 31 mmol/L [facility] Anion Gap 20(H) 5 - 15 mmol/L [facility] Calcium 8.5 8.5 - 10.5 mg/dL [facility] Total Protein 5.8(L) 6.1 - 8.0 g/dL [facility] Albumin 3.6 3.2 - 5.2 g/dL [facility] AST 319(H) 0 - 30 unit/L [facility] ALT 437(H) 0 - 30 unit/L [facility] Alk Phos 86 35 - 105 unit/L [facility] Total Bilirubin 0.4 0.2 - 1.3 mg/dL [facility] Estimated GFR 9(L) >=60 mL/min/1. 73 m?? [facility] [...] MD CHEMISTRY ORDERABLE S Performing Organization Address [facility]/ZIP Co de Phone Number [facility] [place] [address] * APTT (05/13/2023 10:15 AM EDT) PTT 27 25 - 37 sec [facility] Comment: The PTT is NOT appropriate for heparin monitoring. Use the Anti-Xa level for heparin monitoring (HEP UFH) or LMWH monitoring (HEP LMW). A PTT less than 37 seconds generally indicates adequate hemostasis. Blood 05/13/2023 10:1 5 AM EDT 05/13/2023 10:46 AM EDT Narrative Resulting Agency Comment Spec In Lab Alirio Hudson MD HEMATOLOGY ORDERABL ES Performing Organization Address [facility] Co de Phone Number [facility] [place] [address] * (ABNORMAL) Prothrombin Time (05/13/2023 10:15 AM EDT) PT 14.6(H) 9.4 - 12.5 sec [facility] INR 1.3 [facility] Comment: An INR <2.0 indicates [...] HEMATOLOGY ORDERABL ES Performing Organization Address [facility]/ZIP Co de Phone Number [facility] [place] [address] * EKG 12 Lead (05/13/2023 9:22 AM EDT) Ventricular rate 92 BPM MUSE SYSTEM Atrial Rate 92 BPM MUSE SYSTEM P-R Interval 140 ms MUSE SYSTEM QRS Duration 104 ms MUSE SYSTEM Q-T Interval 384 ms MUSE SYSTEM QTC Calculated (Bezet) 474 ms MUSE SYSTEM Calculated P Penelope 33 degrees MUSE SYSTEM Calculated R Penelope 41 degrees MUSE SYSTEM Calculated T Penelope -35 degrees MUSE SYSTEM INTERPRETATION Sinus rhythm with frequent Premature ventricular complexes Septal infarct , age undetermined ST & T wave abnormality, consider lateral ischemia Abnormal ECG When compared with ECG of 12-MAY-2023 10:10, Premature ventricular complexes are now Present I personally reviewed the tracing and edited the fellows interpretation Confirmed by fellow MD Anitha, Carissa ([id number]) on 05/13/2023 3:25:30 PM Confirmed by Maxx Best ([id number]) on 05/13/2023 8:30:56 PM MUSE SYSTEM 05/13/2023 9:22 AM EDT 05/13/2023 8:30 PM EDT Alirio Hudson MD ECG ORDERABLES MUSE SYSTEM * (ABNORMAL) Differential, Automated (05/13/2023 1:15 AM EDT) Pathologist [facility] Neutrophils % 88.1 % [facility] Neutr Abs (ANC) 7.62(H) 1.70 - 6.10 x10(3)/mc L [facility] Lymphocytes % 3.1 % [facility] Lymphocytes Abs 0.3(L) 0.9 - 3.2 x10(3)/mc L [facility] Monocytes % 7.9 % [facility] Monocyte Abs 0.7 0.3 - 0.9 x10(3)/mc L [facility] Eosinophils % 0.0 % [facility] Eosinophils Abs 0.0 0.0 - 0.4 x10(3)/mc L [facility] Basophils % 0.1 % [facility] Basophils Abs 0.0 0.0 - 0.1 x10(3)/mc L [facility] Immature Gran % 0.80 % [facility] Comment: Immature granulocytes(IG's)percentage and absolute count will include metamyelocytes, myelocytes, and promyelocytes. Blood smears from CBCs yielding IG's will be scanned manually for concordance. If this scan disagrees with the automated IG or if promyelocytes are noted, a manual differential will be performed. Amanda Gran Abs 0.07(H) 0.00 - 0.04 x10(3)/ L [facility] Blood 05/13/2023 1:15 AM EDT 05/13/2023 1:29 AM EDT Narrative Resulting Agency Comment Spec In Lab Lorri TOBAR HEMATOLOGY ORDERABLE S [facility] [place] [address] * (ABNORMAL) Hemogram (05/13/2023 1:15 AM EDT) WBC 8.6 4.0 - 9.5 x10(3)/[facility] RBC 2.37(L) 4.00 - 5.21 x10(6)/[facility] Hemoglobin 7.8(L) 11.7 - 15.5 g/dL [facility] Hematocrit 22.2(L) 35.7 - 45.8 % [facility] MCV 93.7 82.6 - 94.4 fL [facility] MCH 32.9(H) 27.1 - 32.0 pg [facility] MCHC 35.1(H) 31.7 - 35.0 g/dL [facility] Platelets 130(L) 145 - 357 x10(3)/[facility] RDWSD 41.7 37.0 - 46.0 [facility] RDWCV 12.5 11.5 - 14.1 % [facility] MPV 10.2 7.6 - 12.9 [facility] nRBC % Auto 0.5 % [facility] nRBC Abs Auto 0.040(H) 0.000 - 0.000 x10(3)/mcL [facility] Blood 05/13/2023 1:15 AM EDT 05/13/2023 1:29 AM EDT Narrative Resulting Agency Comment Spec In Lab Lorri TOBAR HEMATOLOGY ORDERABLE S Performing Organization Address City/[facility]/ZIP Co de Phone Number [facility] [place] [address] * (ABNORMAL) Hepatic Function Panel (05/13/2023 1:15 AM EDT) Total Protein 5.5(L) 6.1 - 8.0 g/dL [facility] Albumin 3.0(L) 3.2 - 5.2 g/dL [facility] AST 792(H) 0 - 30 unit/L [facility] ALT 903(H) 0 - 30 unit/L [facility] Alk Phos 85 35 - 105 unit/L [facility] Total Bilirubin 0.5 0.2 - 1.3 mg/dL [facility] Bili, Direct 0.3 0.0 - 0.3 mg/dL [facility] Blood 05/13/2023 1:15 AM EDT 05/13/2023 1:29 AM EDT Narrative Resulting Agency Comment Spec In Lab Alirio Hudson MD CHEMISTRY ORDERABLE S Performing Organization Address City/[facility]/ZIP Co de Phone Number [facility] [place] [address] * (ABNORMAL) Basic Metabolic Panel (non-fasting) (05/13/2023 1:15 AM EDT) Glucose Lvl 107 65 - 199 mg/dL [facility] Comment:Diabetes: >=200 mg/d L plus symptoms BUN 82(H) 8 - 18 mg/dL [facility] Creatinine 3.15(H) 0.70 - 1.20 mg/dL [facility] Comment:result rechecked-JSJ Sodium 132(L) 135 - 145 mmol/L [facility] [...] questions. Chloride 95(L) 98 - 107 mmol/L [facility] CO2 20(L) 22 - 31 mmol/L [facility] Anion Gap 17(H) 5 - 15 mmol/L [facility] Calcium 8.3(L) 8.5 - 10.5 mg/dL [facility] Estimated GFR 16(L) >=60 mL/min/1. 73 m?? [facility] [...] Lab Alirio Hudson MD CHEMISTRY ORDERABLE S [facility] [place] [address] * (ABNORMAL) BLOOD GAS 2 ARTERIAL (05/12/2023 3:57 PM EDT) Pathologist [facility] pH Art 7.39 7.35 - 7.45 [facility] pCO2 Art 33(L) 35 - 45 mmHg [facility] pO2 Art 101 85 - 104 mmHg [facility] HCO3 Art 19.5(L) 20.0 - 26.0 mmol/L [facility] BE Art -5.5(L) -3.0 - 3.0 mmol/L [facility] Hgb Blood Gas 9.8(L) 11.7 - 15.5 g/dL [facility] O2HB Art 95.2 94.0 - 97.0 % [facility] COHB Art 0.2 % [facility] Comment: Nonsmokers: [...] Whole Blood 1.05(L) 1.15 - 1.33 mmol/L [facility] Comment: Note: ??Total bilirubin higher than 20 mg/dL may lead to falsely low ionized calcium. CL Whole Blood 96(L) 98 - 107 mmol/L [facility] Gluc Whole Bld 178 65 - 199 mg/dL [facility] Comment:Diabetes: >=200 mg/d L plus symptoms. Lactate WB 1.5 0.5 - 2.2 mmol/L [facility] FIO2 Art 40 % [facility] PF Ratio Art 252 [facility] Blood 05/12/2023 3:57 PM EDT 05/12/2023 3:57 PM EDT Alirio Hudson MD CHEMISTRY ORDERABLE S [facility] [place] [address] * (ABNORMAL) Coox2 (05/12/2023 2:25 PM EDT) pO2 Coox 37 mmHg [facility] Hgb Blood Gas 9.5(L) 11.7 - 15.5 g/dL [facility] O2HB Coox 59.9 % [facility] COHB Coox 0.3 % [facility] Comment: Nonsmokers: 0.5-1.5% COHB Smokers: Variable, but usually less than 10% Toxic: 20-30% COHB Lethal: Greater than 60% COHB METHB Coox 0.7 <=1.5 % [facility] Source Coox Mixed Venous [facility] Blood 05/12/2023 2:25 PM EDT 05/12/2023 2:25 PM EDT Alirio Hudson MD CHEMISTRY ORDERABLE S Performing Organization Address City/[facility] Co de Phone Number [facility] [place] [address] * (ABNORMAL) BLOOD GAS 2 ARTERIAL (05/12/2023 2:23 PM EDT) pH Art 7.37 7.35 - 7.45 [facility] pCO2 Art 36 35 - 45 mmHg [facility] pO2 Art 102 85 - 104 mmHg [facility] HCO3 Art 20.4 20.0 - 26.0 mmol/L [facility] BE Art -4.8(L) -3.0 - 3.0 mmol/L [facility] Hgb Blood Gas 12.7 11.7 - 15.5 g/dL [facility] O2HB Art 95.4 94.0 - 97.0 % [facility] COHB Art 0.3 % [facility] Comment: Nonsmokers: 0.5-1.5% COHB Smokers: Variable, but usually less than 10% Toxic: 20-30% COHB Lethal: Greater than 60% COHB METHB Art 0.7 <=1.5 % [facility] Na Whole Blood 129(L) 135 - 145 mmol/L [facility] K Whole Blood 3.7 3.5 - 5.0 mmol/L [facility] Comment: Please note: Patients with WBC >100,000 may have falsely elevated Potassium levels. Contact the Clinical Chemistry Laboratory if there are any questions. ICa Whole Blood 1.05(L) 1.15 - 1.33 mmol/L [facility] Comment: Note: ??Total bilirubin higher than 20 mg/dL may lead to falsely low ionized calcium. CL Whole Blood 95(L) 98 - 107 mmol/L [facility] Gluc Whole Bld 168 65 - 199 mg/dL [facility] Comment:Diabetes: >=200 mg/d L plus symptoms. Lactate WB 1.8 0.5 - 2.2 mmol/L [facility] FIO2 Art 40 % [facility] PF Ratio Art 255 [facility] Blood 05/12/2023 2:23 PM EDT 05/12/2023 2:23 PM EDT Alirio Hudson MD CHEMISTRY ORDERABLE S Performing Organization Address City/State/[facility] Co de Phone Number [facility] [place] [address] * (ABNORMAL) Troponin (05/12/2023 2:05 PM EDT) Troponin-T HS 1,022(H) <=14 ng/L [facility] Comment: This patient's troponin [...] [facility] Hospital Laboratory Test Catalog Reference: Fourth [place] Definition of Myocardial Infarction. Journal of the [place] [employer] 2018;72:5298-2291 Blood 05/12/2023 2:05 PM EDT 05/12/2023 2:14 PM EDT Narrative Resulting Agency Comment Spec In Lab Alirio Hudson MD CHEMISTRY ORDERABLE S Performing Organization Address [facility]/ZIP Co de Phone Number [facility] [place] [address] * (ABNORMAL) Hemoglobin (05/12/2023 2:05 PM EDT) Hemoglobin 8.5(L) 11.7 - 15.5 g/dL [facility] Blood 05/12/2023 2:05 PM EDT 05/12/2023 2:14 PM EDT Narrative Resulting Agency Comment Spec In Lab Alirio Hudson MD HEMATOLOGY ORDERABL ES Performing Organization Address [facility] Co de Phone Number [facility] [place] [address] * Potassium (05/12/2023 2:05 PM EDT) Potassium 3.9 3.5 - 5.0 mmol/L [facility] Lab Alirio Hudson MD CHEMISTRY ORDERABLE S [facility] [place] [address] * (ABNORMAL) BLOOD GAS 2 ARTERIAL (05/12/2023 11:05 AM EDT) pH Art 7.34(L) 7.35 - 7.45 [facility] pCO2 Art 42 35 - 45 mmHg [facility] pO2 Art 73(L) 85 - 104 mmHg [facility] HCO3 Art 22.1 20.0 - 26.0 mmol/L [facility] BE Art -3.6(L) -3.0 - 3.0 mmol/L [facility] Hgb Blood Gas 9.3(L) 11.7 - 15.5 g/dL [facility] O2HB Art 89.3(L) 94.0 - 97.0 % [facility] COHB Art 0.2 % [facility] Comment: Nonsmokers: 0.5-1.5% COHB Smokers: Variable, but usually less than 10% Toxic: 20-30% COHB Lethal: Greater than 60% COHB METHB Art 0.9 <=1.5 % [facility] Na [...] Whole Blood 96(L) 98 - 107 mmol/L [facility] Gluc Whole Bld 152 65 - 199 mg/dL [facility] Comment:Diabetes: >=200 mg/d L plus symptoms. Lactate WB 2.8(H) 0.5 - 2.2 mmol/L [facility] FIO2 Art 40 % [facility] PF Ratio Art 182 [facility] Blood 05/12/2023 11:0 5 AM EDT 05/12/2023 11:05 AM EDT Alirio Hudson MD CHEMISTRY ORDERABLE S Performing Organization Address City/State/[facility] Co de Phone Number [facility] [place] [address] * (ABNORMAL) BLOOD GAS 2 ARTERIAL (05/12/2023 10:14 AM EDT) pH Art 7.18(Criti gabrielle) 7.35 - 7.45 [facility] Comment:Noted by electrical instrument technician. pCO2 Art 45 35 - 45 mmHg [facility] pO2 Art 186(H) 85 - 104 mmHg [facility] HCO3 Art 16.2(L) 20.0 - 26.0 mmol/L [facility] BE Art -12.2(L) -3.0 - 3.0 mmol/L [facility] Hgb Blood Gas 10.0(L) 11.7 - 15.5 g/dL [facility] O2HB Art 97.0 94.0 - 97.0 % [facility] COHB Art 0.2 % [facility] Comment: Nonsmokers: 0.5-1.5% COHB Smokers: Variable, but usually less than 10% Toxic: 20-30% COHB Lethal: Greater than 60% COHB METHB Art 0.9 <=1.5 % [facility] Na Whole Blood 129(L) 135 - 145 mmol/L [facility] K Whole Blood 3.6 3.5 - 5.0 mmol/L [facility] Comment: Please note: Patients with WBC >100,000 may have falsely elevated Potassium levels. Contact the Clinical Chemistry Laboratory if there are any questions. ICa Whole Blood 1.10(L) 1.15 - 1.33 mmol/L [facility] Comment: Note: ??Total bilirubin higher than 20 mg/dL may lead to falsely low ionized calcium. CL Whole Blood 97(L) 98 - 107 mmol/L [facility] Gluc Whole Bld 161 65 - 199 mg/dL [facility] Comment:Diabetes: >=200 mg/d L plus symptoms. Lactate WB 3.3(H) 0.5 - 2.2 mmol/L [facility] FIO2 Art 100 % [facility] PF Ratio Art 186 [facility] Blood 05/12/2023 10:1 4 AM EDT 05/12/2023 10:14 AM EDT Alirio Hudson MD CHEMISTRY ORDERABLE S Performing Organization Address City/State/[facility] Co de Phone Number [facility] [place] [address] * EKG 12 Lead (05/12/2023 10:10 AM EDT) Ventricular rate 116 BPM MUSE SYSTEM Atrial Rate 116 BPM MUSE SYSTEM P-R Interval 158 ms MUSE SYSTEM QRS Duration 114 ms MUSE SYSTEM Q-T Interval 348 ms MUSE SYSTEM QTC Calculated (Bezet) 483 ms MUSE SYSTEM Calculated P Penelope 37 degrees MUSE SYSTEM Calculated R Penelope 31 degrees MUSE SYSTEM Calculated T Penelope -138 degrees MUSE SYSTEM INTERPRETATION Sinus tachycardia with intermittent aberrant ventricular conduction Possible Left atrial enlargement Incomplete left bundle block Left ventricular hypertrophy with repolarization abnormality ( Sokolow-Orozco , Whigham product ) ST & T wave abnormality in Inferolateral leads Abnormal ECG When compared with ECG of 10-MAY-2023 13:16, ST & T wave abnormality is more pronounced in inferolateral leads I personally reviewed the tracing and edited the fellows interpretation Confirmed by fellow MD Anuja, Jim ([id number]) on 05/12/2023 1:04:20 PM Confirmed by MD Mono, Eleni ([id number]) on 05/12/2023 9:28:34 PM MUSE SYSTEM 05/12/2023 [...] who have questions please contact the health family day carer that requested your imaging first. ? Electronically signed by: Chyna Johnson MD, [facility] ??([phone]), at 05/12/2023 10:08 AM Narrative 05/12/2023 10:08 AM EDT EXAMINATION: XR CHEST ONE VIEW CLINICAL HISTORY: Post TAVR TECHNIQUE: 1 view of the chest COMPARISON: Chest radiograph from earlier today FINDINGS: Interval placement of endotracheal tube with tip terminating 2 cm above the shira. Interval placement of enteric tube projecting along the expected course of the esophagus and outside the idinh-lr-ozwx. Interval retraction of right IJ approach pulmonary [...] expected course ofthe esophagus and outside the cqqxl-pc-rdbj. Interval retraction of right IJ approach pulmonary [...] patients who have questions please contactthe health family day carer that requested your imaging first. Electronically signed by: Chyna Johnson MD, [facility]([phone]), at 05/12/2023 10:08 AM Alirio Hudson MD [...] 1955 ? Height: 154 cm ? Account: [id number] Age: 67 yrs ? Weight: 75 kg Gender: Female ?BSA: 1.7 m2 Ordering Physician: RADHA HOLLINS Referring Physician: RADHA HOLLINS Performed By: Dilma Bee RDCS Reason For Study: Guidance for TAVR procedure Exam Location: [facility]. Interpretation Summary PRE TAVR: There is severe [...] mL/m2. POST TAVR: Normal function of the iedtd-pm-yigcr prosthesis. See below for hemodynamic parameters. Slight improvement in left and right ventricular systolic function. LVEF now 20-25%. No pericardial effusion. See report for additional findings. Procedure Limited - 99257. Doppler - 89116. Color Doppler - 49496. Left Ventricle Left ventricle is of normal [...] Date: 307:33 AMBP: 96/63 mmHg Patient Location: [address] : 1955 Height: 154 cm Account: [id number] Age: 67 yrs Weight: 75 kg Gender: Female BSA: 1.7 m2 Ordering Physician: RADHA HOLLINS Referring Physician: RADHA HOLLINS Performed By: Dilma Bee RDCS Reason For Study: Guidance for TAVR procedure Exam Location: [facility]. Interpretation Summary PRE TAVR: There is severe [...] 28mL/m2. POST TAVR: Normal function of the xvgun-xy-eiiih prosthesis. See belowfor hemodynamic parameters. Slight improvement in left and right ventricularsystolic function. LVEF now 20-25%. No pericardial effusion. See report for additional findings. Procedure Limited - 76622. Doppler - 03529. Color Doppler - 95450. Left Ventricle Left ventricle is of normal [...] Modality Other Narrative 05/12/2023 2:37 PM EDT ?[facility] ? Cardiac Catheterization/Intervention Report ? Patient Name: Kirstie, Purnima M. ? Procedure Date: 05/12/2023 ? A #: [id number] ? Primary Physician: Antelmo Sharma ? Case #: [id number] ? File Name: [id number] ? Catheterization Order Number: [id number] ? [facility] ? Final Report [place], [place] ? Patient Name: ? Purnima Thacker ? ID#: ?[id number] ? : ?1955 ? Procedure Date: ? May 12, 2023 ? Case #: ? [id number] ? Room: ? 6 ? Case Physicians: ?Antelmo Sharma M.D. ?Start: ?08:03 ?Alirio Hudson M.D. ?Admission: ??05/08/2023 ?Lynda Mcgowan M.D. ? Discharge: ??05/22/2023 ?Fellow: ? Kristied Bhavna Tejeda. ? Referring Physician: ??Mario Alberto Chin M.D. ? Procedures: ?* Coronary Angiography ?* Left Heart Catheterization ?* Coronary Stent Insertion ?* Transcatheter Aortic Valve Replacement ?* Vascular Closure Device Deployment ?* Temporary Pacemaker Insertion In Exhibition Organiser ?* Endotracheal Intubation By Non-Cath Physician ?* [...] was designated as ASA Class IV. The [facility] clinical ?frailty scale is 4: Vulnerable. [...] guide. ??A premounted 4.00 x 30 mm Page Brazoria (MINNA) was ? deployed with a maximum [...] calculated STS risk score was 30.1%. A siike-sy-psmcr ?procedure was performed on the pre-existing bioprosthetic stented ?prosthesis. The priority of the wqpcy-ed-grmas procedure was Elective. ?The procedure was performed [...] Lai 3 Ultra RESILIA 23 mm THV (s/f=[id number]) transcatheter ?valve was inserted using standard technique. [...] nor was it given in the ?laborer cement gun placing. ?Recommended anti-platelet/anti-thrombotic regimen: ?Continue aspirin 81 mg daily for indefinitely. ?These recommendations are made at the time of the intervention. Patient ?and provider preferences or a changing clinical situation may require ?modification of this regimen. Consult [facility] Interventional Cardiology for ?questions. ? Conclusions: ?* [...] regimen. ? Comments: ?Successful right transfemoral TAVR Ttijw-yo-Tevnu with a 23 mm Lai 3 ?THV. [...] access site angiography, ?temporary pacemaker in laborer cement gun placing, intubation-non cath physician, vascular ?closure device, transthoracic echo ??and TAVR. Dr. Alirio Hudson M.D. ?performed the left heart catheterization, access site angiography, ?temporary pacemaker in laborer cement gun placing, vascular closure device, transthoracic ?echo , TAVR and CPR during cath. Dr. Lynda Mcgowan M.D. performed the ABG, ?anesthesia and intubation-non cath physician. ? Antelmo Sharma M.D. ? Electronically Signed by: Antelmo Sharma M.D. ? Report Finalized: 05/12/2023 ??14:31 ? Report Last Ammended: 07/01/2023 ??11:30 ? Procedure Note Antelmo Sharma MD - 07/01/2023 [facility] Cardiac Catheterization/Intervention Report Patient Name: Purnima Thacker Procedure Date: 05/12/2023 A #: [id number] Primary Physician: Antelmo Sharma Case #: [id number] File Name: [id number] Catheterization Order Number: [id number] [facility] FinalReport [place], [place] Patient Name: Purnima Thacker ID#:[id number] :1955 Procedure Date: May 12, 2023 Case #: [id number] Room: 6 Case Physicians: Antelmo Sharma M.D. Start: 08:03 Alirio Hudson M.D. Admission:05/08/2023 Lynda Mcgowan M.D. Discharge:05/22/2023 Fellow: Rebekah Tejeda M.D. Referring Physician: Mario Alberto Chin M.D. Procedures: * Coronary Angiography * Left Heart Catheterization * Coronary Stent Insertion * Transcatheter Aortic Valve Replacement * Vascular Closure Device Deployment * Temporary Pacemaker Insertion In Exhibition Organiser * Endotracheal Intubation By Non-Cath Physician * [...] guide. A premounted 4.00 x 30 mm Page [place]razoria (MINNA) was deployed with a maximum inflation [...] calculated STS risk score was 30.1%. A wynfa-ms-bdjzc procedure was performed on the pre-existing bioprosthetic stented prosthesis. The priority of the qdeyd-rs-osxdw procedure wasElective. The procedure was performed under Moderate sedation performed byLynda Mcgowan M.D. (see anesthesia report for additional details). Alirio Hudson M.D. participated in the case (see Cardiac Surgery reportfor additional details). The TAVR sheath was a 14 Fr Corona eSheath Introducer and theaccess site was femoral. Rapid ventricular pacing was performed. An Corona Lai 3 Ultra RESILIA 23 mm THV (s/u=[id number])transcatheter valve was inserted using standard technique. The [...] to nor was it given inthe laborer cement gun placing. Recommended anti-platelet/anti-thrombotic regimen: Continue aspirin 81 mg daily for indefinitely. These recommendations are made at the time of the intervention.Patient and provider preferences or a changing clinical situation mayrequire modification of this regimen. Consult [facility] Interventional Cardiologyfor questions. Conclusions: * Nonobstructive disease [...] this regimen. Comments: Successful right transfemoral TAVR Oglai-cy-Buohl with a 23 mmSapien 3 THV. We [...] access site angiography, temporary pacemaker in laborer cement gun placing, intubation-non cath physician,vascular closure device, transthoracic echo and TAVR. Dr. Alirio Hudson M.D. performed the left heart catheterization, access site angiography, temporary pacemaker in laborer cement gun placing, vascular closure device,transthoracic echo , TAVR and [...] POC pH 7.20(Crit ical) 7.35 - 7.45 [facility] Comment:Critical value OK, C C Lab. POC PCO2 42 35 - 45 mmHg [facility] POC PO2 260(H) 85 - 104 mmHg [facility] POC Base Excess -11.0(L) -3.0 - 3.0 mmol/L [facility] POC HCO3 16.7(L) 20.0 - 26.0 mmol/L [facility] POC Sodium 129(L) 135 - 145 mmol/L [facility] POC Potassium 3.8 3.5 - 5.0 mmol/L [facility] POC Ionized Ca 1.12(L) 1.15 - 1.33 mmol/L [facility] POC Hematocrit 23.0(L) 34.0 - 45.0 % [facility] POC Calc Hgb 7.8(L) 11.2 - 15.7 g/dL [facility] Comment:The calculation of h emoglobin from hematocrit assumes a normal MCHC. POC Bgas Loc CC Lab [facility] Blood 05/12/2023 8:50 AM EDT 05/13/2023 12:00 PM EDT Alirio Hudson MD CHEMISTRY ORDERABLE S Performing Organization Address City/State/[facility] Co de Phone Number [facility] [place] [address] * (ABNORMAL) Point of Care Blood Gas Historical (05/12/2023 8:10 AM EDT) POC pH 7.27(Crit ical) 7.35 - 7.45 [facility] Comment:Critical value Yamel KRAUSE C Lab. POC PCO2 37 35 - 45 mmHg [facility] POC PO2 29(Critic al) 85 - 104 mmHg [facility] Comment:Critical value OK C C Lab. POC Base Excess -10.0(L) -3.0 - 3.0 mmol/L [facility] POC HCO3 16.7(L) 20.0 - 26.0 mmol/L [facility] POC Sodium 123(L) 135 - 145 mmol/L [facility] POC Potassium 4.0 3.5 - 5.0 mmol/L [facility] POC Ionized Ca 1.12(L) 1.15 - 1.33 mmol/L [facility] POC Hematocrit 27.0(L) 34.0 - 45.0 % [facility] POC Calc Hgb 9.2(L) 11.2 - 15.7 g/dL [facility] Comment:The calculation of h emoglobin from hematocrit assumes a normal MCHC. POC Bgas Loc CC Lab [facility] Blood 05/12/2023 8:10 AM EDT 05/13/2023 12:00 PM EDT Alirio Hudson MD CHEMISTRY ORDERABLE S Performing Organization Address [facility] Co de Phone Number [facility] [place] [address] * (ABNORMAL) Lactate, whole blood, send to lab ([facility] (05/12/2023 7:00 AM EDT) Lactate WB 2.4(H) 0.5 - 2.2 mmol/L [facility] Blood 05/12/2023 7:00 AM EDT 05/12/2023 7:09 AM EDT Narrative Resulting Agency Comment Spec In Lab Radha Hollins MD CHEMISTRY ORDERABL ES Performing Organization Address [facility] Co de Phone Number [facility] [place] [address] * (ABNORMAL) Comprehensive metabolic panel (non-fasting) (05/12/2023 6:00 AM EDT) Glucose Lvl 167 65 - 199 mg/dL [facility] Comment:Diabetes: >=200 mg/d L plus symptoms BUN 67(H) 8 - 18 mg/dL [facility] Creatinine 2.01(H) 0.70 - 1.20 mg/dL [facility] Sodium 131(L) 135 - 145 mmol/L [facility] Potassium 4.3 3.5 - 5.0 mmol/L [facility] Comment: Please note: ??Patients with WBC >100,000 may have falsely elevated Potassium levels. ??For accurate Potassium quantification in these patients send serum separator tube (gold top) for subsequent determinations. ??Contact the Clinical Chemistry Laboratory if there are any questions. Chloride 97(L) 98 - 107 mmol/L [facility] CO2 14(L) 22 - 31 mmol/L [facility] Anion Gap 20(H) 5 - 15 mmol/L [facility] Calcium 8.6 8.5 - 10.5 mg/dL [facility] Total Protein 6.3 6.1 - 8.0 g/dL [facility] Albumin 3.5 3.2 - 5.2 g/dL [facility] AST 1,435(H) 0 - 30 unit/L [facility] ALT 1,174(H) 0 - 30 unit/L [facility] Alk Phos 100 35 - 105 unit/L [facility] Total Bilirubin 0.9 0.2 - 1.3 mg/dL [facility] Estimated GFR 27(L) >=60 mL/min/1. 73 m?? [facility] [...] Lab Radha Hollins MD CHEMISTRY ORDERABL ES [facility] [place] [address] * (ABNORMAL) Coox2 (05/12/2023 5:08 AM EDT) pO2 Coox 24 mmHg [facility] Hgb Blood Gas 10.4(L) 11.7 - 15.5 g/dL [facility] O2HB Coox 30.7 % [facility] COHB Coox 0.3 % [facility] Comment: Nonsmokers: 0.5-1.5% COHB Smokers: Variable, but usually less than 10% Toxic: 20-30% COHB Lethal: Greater than 60% COHB METHB Coox 0.8 <=1.5 % [facility] Source Coox Mixed Venous [facility] Blood 05/12/2023 5:08 AM EDT 05/12/2023 5:08 AM EDT Radha Hollins MD CHEMISTRY ORDERABL ES Performing Organization Address [facility] de Phone Number [facility] [place] [address] * (ABNORMAL) Coox2 (05/12/2023 3:21 AM EDT) pO2 Coox 25 mmHg [facility] Hgb Blood Gas 10.8(L) 11.7 - 15.5 g/dL [facility] O2HB Coox 32.7 % [facility] COHB Coox 0.3 % [facility] Comment: Nonsmokers: 0.5-1.5% COHB Smokers: Variable, but usually less than 10% Toxic: 20-30% COHB Lethal: Greater than 60% COHB METHB Coox 0.7 <=1.5 % [facility] Source Coox Mixed Venous [facility] Blood 05/12/2023 3:21 AM EDT 05/12/2023 3:21 AM EDT Radha Hollins MD CHEMISTRY ORDERABL ES Performing Organization Address [facility] de Phone Number [facility] [place] [address] * (ABNORMAL) BLOOD GAS 2 ARTERIAL (05/12/2023 3:18 AM EDT) pH Art 7.34(L) 7.35 - 7.45 [facility] pCO2 Art 30(L) 35 - 45 mmHg [facility] pO2 Art 72(L) 85 - 104 mmHg [facility] HCO3 Art 16.0(L) 20.0 - 26.0 mmol/L [facility] BE Art -9.8(L) -3.0 - 3.0 mmol/L [facility] Hgb Blood Gas 11.0(L) 11.7 - 15.5 g/dL [facility] O2HB Art 89.8(L) 94.0 - 97.0 % [facility] COHB Art 0.3 % [facility] [...] Whole Blood 1.12(L) 1.15 - 1.33 mmol/L [facility] Comment: Note: ??Total bilirubin higher than 20 mg/dL may lead to falsely low ionized calcium. CL Whole Blood 100 98 - 107 mmol/L [facility] Gluc Whole Bld 160 65 - 199 mg/dL [facility] Comment:Diabetes: >=200 mg/d L plus symptoms. Lactate WB 2.7(H) 0.5 - 2.2 mmol/L [facility] Flow Art 5.0 LPM [facility] Blood 05/12/2023 3:18 AM EDT 05/12/2023 3:18 AM EDT Radha Hollins MD CHEMISTRY ORDERABL ES Performing Organization Address [facility] de Phone Number [facility] [place] [address] * (ABNORMAL) Coox2 (05/12/2023 1:14 AM EDT) pO2 Coox 28 mmHg [facility] Hgb Blood Gas 10.9(L) 11.7 - 15.5 g/dL [facility] O2HB Coox 37.3 % [facility] COHB Coox 0.3 % [facility] Comment: Nonsmokers: 0.5-1.5% COHB Smokers: Variable, but usually less than 10% Toxic: 20-30% COHB Lethal: Greater than 60% COHB METHB Coox 0.5 <=1.5 % [facility] Source Coox Mixed Venous [facility] Blood 05/12/2023 1:14 AM EDT 05/12/2023 1:14 AM EDT Radha Hollins MD CHEMISTRY ORDERABL ES Performing Organization Address [facility] de Phone Number [facility] [place] [address] * (ABNORMAL) BLOOD GAS 2 ARTERIAL (05/12/2023 1:06 AM EDT) pH Art 7.34(L) 7.35 - 7.45 [facility] pCO2 Art 30(L) 35 - 45 mmHg [facility] pO2 Art 81(L) 85 - 104 mmHg [facility] HCO3 Art 15.7(L) 20.0 - 26.0 mmol/L [facility] BE Art -10.1(L) -3.0 - 3.0 mmol/L [facility] Hgb Blood Gas 11.0(L) 11.7 - 15.5 g/dL [facility] [facility] O2HB Art 92.3(L) 94.0 - 97.0 % [facility] COHB Art 0.2 % [facility] Comment: Nonsmokers: 0.5-1.5% COHB Smokers: Variable, but usually less than 10% Toxic: 20-30% COHB Lethal: Greater than 60% COHB METHB Art 0.6 <=1.5 % [facility] Na [...] Whole Blood 99 98 - 107 mmol/L [facility] Gluc Whole Bld 132 65 - 199 mg/dL [facility] Comment:Diabetes: >=200 mg/d L plus symptoms. Lactate WB 2.7(H) 0.5 - 2.2 mmol/L [facility] Flow Art 5.0 LPM [facility] Blood 05/12/2023 1:06 AM EDT 05/12/2023 1:06 AM EDT Radha Hollins MD CHEMISTRY ORDERABL ES [facility] [place] [address] * (ABNORMAL) Differential, Automated (05/12/2023 1:05 AM EDT) Neutrophils % 83.3 % [facility] Neutr Abs (ANC) 7.49(H) 1.70 - 6.10 x10(3)/mc L [facility] Lymphocytes % 7.1 % [facility] Lymphocytes Abs 0.6(L) 0.9 - 3.2 x10(3)/[facility] Monocytes % 8.9 % [facility] Monocyte Abs 0.8 0.3 - 0.9 x10(3)/[facility] Eosinophils % 0.0 % [facility] Eosinophils Abs 0.0 0.0 - 0.4 x10(3)/[facility] Basophils % 0.1 % [facility] Basophils Abs 0.0 0.0 - 0.1 x10(3)/[facility] Immature Gran % 0.60 % [facility] Comment: Immature granulocytes(IG's)percentage and absolute count will include metamyelocytes, myelocytes, and promyelocytes. Blood smears from CBCs yielding IG's will be scanned manually for concordance. If this scan disagrees with the automated IG or if promyelocytes are noted, a manual differential will be performed. Amanda Gran Abs 0.05(H) 0.00 - 0.04 x10(3)/[facility] Blood 05/12/2023 1:05 AM EDT 05/12/2023 1:15 AM EDT Narrative Resulting Agency Comment Spec In Lab Gianni Fletcher MD HEMATOLOGY ORDERABLE S [facility] [place] [address] * (ABNORMAL) Hemogram (05/12/2023 1:05 AM EDT) WBC 9.0 4.0 - 9.5 x10(3)/[facility] RBC 3.01(L) 4.00 - 5.21 x10(6)/[facility] Hemoglobin 9.8(L) 11.7 - 15.5 g/dL [facility] Hematocrit 28.7(L) 35.7 - 45.8 % [facility] MCV 95.3(H) 82.6 - 94.4 fL [facility] MCH 32.6(H) 27.1 - 32.0 pg [facility] MCHC 34.1 31.7 - 35.0 g/dL [facility] Platelets 186 145 - 357 x10(3)/[facility] RDWSD 43.7 37.0 - 46.0 [facility] RDWCV 12.7 11.5 - 14.1 % [facility] MPV 10.3 7.6 - 12.9 [facility] nRBC % Auto 0.0 % [facility] nRBC Abs Auto 0.000 0.000 - 0.000 x10(3)/[facility] Blood 05/12/2023 1:05 AM EDT 05/12/2023 1:15 AM EDT Narrative Resulting Agency Comment Spec In Lab Gianni Fletcher MD HEMATOLOGY ORDERABLE S [facility] [place] [address] * (ABNORMAL) Comprehensive metabolic panel (non-fasting) (05/12/2023 1:05 AM EDT) Glucose Lvl 141 65 - 199 mg/dL [facility] Comment:Diabetes: >=200 mg/d L plus symptoms BUN 63(H) 8 - 18 mg/dL [facility] Creatinine 1.86(H) 0.70 - 1.20 mg/dL [facility] Sodium 131(L) 135 - 145 mmol/L [facility] [...] questions. Chloride 96(L) 98 - 107 mmol/L [facility] CO2 14(L) 22 - 31 mmol/L [facility] Anion Gap 21(H) 5 - 15 mmol/L [facility] Calcium 9.0 8.5 - 10.5 mg/dL [facility] Total Protein 6.6 6.1 - 8.0 g/dL [facility] Albumin 3.9 3.2 - 5.2 g/dL [facility] AST 1,227(H) 0 - 30 unit/L [facility] ALT 1,097(H) 0 - 30 unit/L [facility] Alk Phos 108(H) 35 - 105 unit/L [facility] Total Bilirubin 1.0 0.2 - 1.3 mg/dL [facility] Estimated GFR 29(L) >=60 mL/min/1. 73 m?? [facility] [...] Lab Radha Hollins MD CHEMISTRY ORDERABL ES [facility] [place] [address] * XR Chest One View (05/12/2023 1:00 [...] who have questions please contact the health family day carer that requested your imaging first. ? Electronically signed by: Will Rowe MD, [facility] ([phone]), at 05/12/2023 3:16 AM Narrative 05/12/2023 3:16 AM EDT EXAMINATION: XR [...] patients who have questions please contactthe health family day carer that requested your imaging first. Electronically signed by: Will Rowe MD, [facility]([phone]), at 05/12/2023 3:16 AM Radha Hollins MD IMG DX ORDERABLES * (ABNORMAL) Coox2 (05/12/2023 12:30 AM EDT) pO2 Coox 22 mmHg [facility] Hgb Blood Gas 10.9(L) 11.7 - 15.5 g/dL [facility] O2HB Coox 25.1 % [facility] COHB Coox 0.3 % [facility] Comment: Nonsmokers: 0.5-1.5% COHB Smokers: Variable, but usually less than 10% Toxic: 20-30% COHB Lethal: Greater than 60% COHB METHB Coox 1.4 <=1.5 % [facility] Source Coox Mixed Venous [facility] Blood 05/12/2023 12:3 0 AM EDT 05/12/2023 12:30 AM EDT Radha Hollins MD CHEMISTRY ORDERABL ES [facility] [place] [address] * XR Chest One View (05/11/2023 11:45 [...] who have questions please contact the health family day carer that requested your imaging first. ? Narrative [...] patients who have questions please contactthe health family day carer that requested your imaging first. Electronically signed by: Will Rowe MD, [facility]([phone]), at 05/11/2023 11:57 PM Radha Hollins MD IMG DX ORDERABLES * (ABNORMAL) Lactate, whole blood, send to lab ([facility] (05/11/2023 7:40 PM EDT) Lactate WB 4.8(Critic al) 0.5 - 2.2 mmol/L [facility] Comment:Called by: NIKI, Read back by: Magdalena Baires, Date/Time:05/11/23 19:54. Blood 05/11/2023 7:40 PM EDT 05/11/2023 7:49 PM EDT Narrative Resulting Agency Comment Spec In Lab Radha Hollins MD CHEMISTRY ORDERABL ES [facility] [place] [address] * Urine culture (05/11/2023 7:22 PM EDT) Urine Culture 50,000-99,000 cfu/ml Normal mucosal herman Susceptibilit y testing not routinely performed for Coagulase Negative Staphylococcu s species and other Gram Positive organisms from urine. [facility] Clean Catch Urine 05/11/2023 7:22 PM EDT 05/11/2023 8:50 PM EDT Narrative Resulting Agency Comment Spec In Lab Brody Kaplan ASSURANCE SENIOR MANAGER MICROBIOLOGY - GENE RAL ORDERABLES Performing Organization Address [facility]/ZIP Co de Phone Number [facility] [place] [address] * (ABNORMAL) Urinalysis Microscopic Exam (05/11/2023 7:22 PM EDT) RBC UA 2 0 - 4 /HPF [facility] WBC UA >100(H) 0 - 5 /HPF [facility] Bacteria UA Occasional (A) None /HPF [facility] Squam Epith UA 5(H) <=4 /HPF [facility] Hyaline Cast UA 3(H) 0 - 2 /LPF [facility] Clean Catch Urine 05/11/2023 7:22 PM EDT 05/11/2023 7:31 PM EDT Narrative Resulting Agency Comment Spec In Lab Brody Kaplan APRN URINE ORDERABLES Performing Organization Address [facility]/ZIP Co de Phone Number [facility] [place] [address] * (ABNORMAL) Urinalysis with reflex Culture (05/11/2023 7:22 PM EDT) Glucose UA Negative Negative mg/dL [facility] Protein UA Trace(A) Negative mg/dL [facility] Bilirubin UA Negative Negative mg/dL [facility] Comment: Clinical correlation required for positive Urine Bilirubin results as false positive may occur with some drugs and drug related products. If a false positive is suspected a serum total bilirubin should be considered if clinically indicated. Urobilinogen UA Normal Normal mg/dL [facility] pH UA 5.0 5.0 - 8.0 [facility] Blood UA Trace(A) Negative mg/dL [facility] Ketones UA Negative Negative mg/dL [facility] Nitrite UA Negative Negative [facility] Leukocytes UA Moderate(A) Negative mcL [facility] Appearance UA Cloudy(A) Clear [facility] Spec [place] UA >=1.030(A) 1.005 - 1.030 [facility] Color UA Yellow Yellow [facility] Culture Reflexed Yes [facility] Clean Catch Urine 05/11/2023 7:22 PM EDT 05/11/2023 7:31 PM EDT Narrative Resulting Agency Comment Spec In Lab Brody Kaplan APRN URINE ORDERABLES [facility] [place] [address] * (ABNORMAL) pro-Brain Natriuretic Peptide (05/11/2023 7:11 PM EDT) Pathologist [facility] ProBNP >35,000(H) <=124 pg/mL [facility] Blood 05/11/2023 7:11 PM EDT 05/11/2023 7:26 PM EDT Narrative Resulting Agency Comment Spec In Lab Radha Hollins MD CHEMISTRY ORDERABL ES [facility] [place] [address] * (ABNORMAL) Lactate, whole blood, send to lab ([facility]) (05/11/2023 2:47 PM EDT) Lactate WB 2.9(H) 0.5 - 2.2 mmol/L [facility] Blood 05/11/2023 2:47 PM EDT 05/11/2023 2:53 PM EDT Narrative Resulting Agency Comment Spec In Lab Juan Luis Gonzalez MD CHEMISTRY ORDERABLES [facility] [place] [address] * (ABNORMAL) CT Angiogram Abdomen & Pelvis [...] who have questions please contact the health family day carer that requested your imaging first. ? Narrative [...] who have questions please contact the health family day carer that requested your imaging first. ? Electronically signed by: Cullen Narayanan MD, [facility] ([phone]), at 05/11/2023 4:37 PM Narrative 05/11/2023 4:37 [...] 610 mm2 Circumference: 88 mm Calcification: Mild Rtqzocl-cp-yectwmab height: Left: 6.2 mm Right: 5.8 mm THORACIC AORTA Description: Normal course and caliber. ??Mild diffuse atherosclerotic changes. No acute aortopathy noted. Meat Service Team Member dimensions: Aortic root: 27.6 mm Max ascending aorta: 30.5 mm x 27.7 mm Suggested fluoroscopic angulation based on line extending through the nadirs of the three sinuses of Valsalva, set equidistant: ?? SERBIAN ??9 degrees; cranial 7 degrees MITRAL: Mitral [...] 610 mm2 Circumference: 88 mm Calcification: Mild Lsxibuj-ia-turjdoiz height: Left: 6.2 mm Right: 5.8 mm THORACIC AORTA Description: Normal course and caliber. Mild diffuse atheroscleroticchanges. No acute aortopathy noted. Meat Service Team Member dimensions: Aortic root: 27.6 mm Max ascending aorta: 30.5 mm x 27.7 mm Suggested fluoroscopic angulation based on line extending through thenadirs of the three sinuses of Valsalva, set equidistant: SERBIAN 9 degrees; cranial 7 degrees MITRAL: Mitral [...] patients who have questions please contactthe health family day carer that requested your imaging first. Antelmo Sharma MD IMG CT ORDERABLES * (ABNORMAL) Lactate, whole blood, send to lab ([facility] (05/11/2023 9:29 AM EDT) Pathologist [facility] Lactate WB 3.1(H) 0.5 - 2.2 mmol/L [facility] Blood 05/11/2023 9:29 AM EDT 05/11/2023 9:38 AM EDT Narrative Resulting Agency Comment Spec In Lab Juan Luis Gonzalez MD CHEMISTRY ORDERABLES [facility] [place] [address] * (ABNORMAL) Differential, Automated (05/11/2023 4:42 AM EDT) Neutrophils % 78.1 % [facility] Neutr Abs (ANC) 5.46 1.70 - 6.10 x10(3)/mc L [facility] Lymphocytes % 10.6 % [facility] Lymphocytes Abs 0.7(L) 0.9 - 3.2 x10(3)/mc L [facility] Monocytes % 9.6 % [facility] Monocyte Abs 0.7 0.3 - 0.9 x10(3)/mc L [facility] Eosinophils % 0.0 % [facility] Eosinophils Abs 0.0 0.0 - 0.4 x10(3)/mc L [facility] Basophils % 0.4 % [facility] Basophils Abs 0.0 0.0 - 0.1 x10(3)/mc L [facility] Immature Gran % 1.30 % [facility] Comment: Immature granulocytes(IG's)percentage and absolute count will include metamyelocytes, myelocytes, and promyelocytes. Blood smears from CBCs yielding IG's will be scanned manually for concordance. If this scan disagrees with the automated IG or if promyelocytes are noted, a manual differential will be performed. Amanda Gran Abs 0.09(H) 0.00 - 0.04 x10(3)/mc L [facility] Blood 05/11/2023 4:42 AM EDT 05/11/2023 4:49 AM EDT Narrative Resulting Agency Comment Spec In Lab Klaudia Reid MD HEMATOLOGY OR DERABLES [facility] [place] [address] * (ABNORMAL) Hemogram (05/11/2023 4:42 AM EDT) WBC 7.0 4.0 - 9.5 x10(3)/[facility] RBC 3.44(L) 4.00 - 5.21 x10(6)/[facility] Hemoglobin 11.1(L) 11.7 - 15.5 g/dL [facility] Hematocrit 32.7(L) 35.7 - 45.8 % [facility] MCV 95.1(H) 82.6 - 94.4 fL [facility] MCH 32.3(H) 27.1 - 32.0 pg [facility] MCHC 33.9 31.7 - 35.0 g/dL [facility] Platelets 165 145 - 357 x10(3)/[facility] RDWSD 43.1 37.0 - 46.0 [facility] RDWCV 12.7 11.5 - 14.1 % [facility] MPV 10.1 7.6 - 12.9 fL [facility] nRBC % Auto 0.0 % [facility] nRBC Abs Auto 0.000 0.000 - 0.000 x10(3)/mcL [facility] Blood 05/11/2023 4:42 AM EDT 05/11/2023 4:49 AM EDT Narrative Resulting Agency Comment Spec In Lab Klaudia Reid MD HEMATOLOGY OR DERABLES Performing Organization Address [facility]/ZIP Co de Phone Number [facility] [place] [address] * Heparin (unfractionated) Level (05/11/2023 4:42 AM EDT) Heparin UFH Level 0.46 IU/mL [facility] Comment: Heparin (anti-Xa) levels [...] HEMATOLOGY ORDERAB LES Performing Organization Address [facility]/ZIP Co de Phone Number [facility] [place] [address] * (ABNORMAL) Comprehensive metabolic panel (non-fasting) (05/11/2023 4:42 AM EDT) Glucose Lvl 143 65 - 199 mg/dL [facility] Comment:Diabetes: >=200 mg/d L plus symptoms BUN 42(H) 8 - 18 mg/dL [facility] Creatinine 1.24(H) 0.70 - 1.20 mg/dL [facility] Sodium 134(L) 135 - 145 mmol/L [facility] Potassium 4.6 3.5 - 5.0 mmol/L [facility] Comment: Please note: ??Patients with WBC >100,000 may have falsely elevated Potassium levels. ??For accurate Potassium quantification in these patients send serum separator tube (gold top) for subsequent determinations. ??Contact the Clinical Chemistry Laboratory if there are any questions. Chloride 99 98 - 107 mmol/L [facility] CO2 14(L) 22 - 31 mmol/L [facility] Anion Gap 21(H) 5 - 15 mmol/L [facility] Calcium 9.6 8.5 - 10.5 mg/dL [facility] Total Protein 7.2 6.1 - 8.0 g/dL [facility] Albumin 3.7 3.2 - 5.2 g/dL [facility] AST 144(H) 0 - 30 unit/L [facility] Comment:result rechecked-ssc ALT 130(H) 0 - 30 unit/L [facility] Comment:result rechecked-ssc Alk Phos 72 35 - 105 unit/L [facility] Total Bilirubin 0.8 0.2 - 1.3 mg/dL [facility] Estimated GFR 48(L) >=60 mL/min/1. 73 m?? [facility] MD CHEMISTRY ORDERABL ES Performing Organization Address City/[facility]/ZIP Co de Phone Number [facility] [place] [address] * EKG 12 Lead (05/10/2023 1:16 PM EDT) Ventricular rate 118 BPM MUSE SYSTEM Atrial Rate 118 BPM MUSE SYSTEM P-R Interval 152 ms MUSE SYSTEM QRS Duration 104 ms MUSE SYSTEM Q-T Interval 316 ms MUSE SYSTEM QTC Calculated (Bezet) 442 ms MUSE SYSTEM Calculated P Penelope 29 degrees MUSE SYSTEM Calculated R Penelope 18 degrees MUSE SYSTEM Calculated T Penelope -173 degrees MUSE SYSTEM INTERPRETATION Sinus tachycardia [...] Anterior leads Confirmed by MD Villareal Danette ([id number]) on 05/10/2023 8:47:46 PM MUSE SYSTEM 05/10/2023 1:16 PM EDT 05/10/2023 8:47 PM EDT Juan Luis Gonzalez MD ECG ORDERABLES Performing Organization Address [facility] Co de Phone Number MUSE SYSTEM * Lactate, whole blood, send to lab ([facility] (05/10/2023 11:52 AM EDT) Lactate WB 1.8 0.5 - 2.2 mmol/L [facility] Blood 05/10/2023 11:5 2 AM EDT 05/10/2023 12:13 PM EDT Narrative Resulting Agency Comment Spec In Lab Juan Luis Gonzalez MD CHEMISTRY ORDERABLES Performing Organization Address City/[facility]/ZIP Co de Phone Number [facility] [place] [address] * XR Chest One View (05/10/2023 11:16 [...] who have questions please contact the health family day carer that requested your imaging first. ? Electronically signed by: ALIX RUVALCABA MD, [facility] ([phone]), at 05/10/2023 1:25 PM Narrative 05/10/2023 1:25 [...] patients who have questions please contactthe health family day carer that requested your imaging first. Electronically signed by: ALIX RUVALCABA MD, [facility]([phone]), at 05/10/2023 1:25 PM Juan Luis Gonzalez MD IMG DX ORDERABLES * EKG 12 Lead (05/10/2023 7:59 AM EDT) Ventricular rate 115 BPM MUSE SYSTEM Atrial Rate 115 BPM MUSE SYSTEM P-R Interval 142 ms MUSE SYSTEM QRS Duration 102 ms MUSE SYSTEM Q-T Interval 322 ms MUSE SYSTEM QTC Calculated (Bezet) 445 ms MUSE SYSTEM Calculated P Penelope 36 degrees MUSE SYSTEM Calculated R Penelope 28 degrees MUSE SYSTEM Calculated T Penelope -119 degrees MUSE SYSTEM INTERPRETATION Sinus tachycardia [...] 2:28 AM EDT) Neutrophils % 77.1 % [facility] Neutr Abs (ANC) 4.01 1.70 - 6.10 x10(3)/[facility] Lymphocytes % 14.0 % [facility] Lymphocytes Abs 0.7(L) 0.9 - 3.2 x10(3)/[facility] Monocytes % 7.7 % [facility] Monocyte Abs 0.4 0.3 - 0.9 x10(3)/[facility] Eosinophils % 0.4 % [facility] Eosinophils Abs 0.0 0.0 - 0.4 x10(3)/[facility] Basophils % 0.4 % [facility] Basophils Abs 0.0 0.0 - 0.1 x10(3)/[facility] Immature Gran % 0.40 % [facility] Comment: Immature granulocytes(IG's)percentage and absolute count will include metamyelocytes, myelocytes, and promyelocytes. Blood smears from CBCs yielding IG's will be scanned manually for concordance. If this scan disagrees with the automated IG or if promyelocytes are noted, a manual differential will be performed. Amanda Gran Abs 0.02 0.00 - 0.04 x10(3)/[facility] Blood 05/10/2023 2:28 AM EDT 05/10/2023 2:57 AM EDT Narrative Resulting Agency Comment Spec In Lab Klaudia Reid MD HEMATOLOGY OR DERABLES [facility] [place] [address] * (ABNORMAL) Hemogram (05/10/2023 2:28 AM EDT) WBC 5.2 4.0 - 9.5 x10(3)/[facility] RBC 3.11(L) 4.00 - 5.21 x10(6)/[facility] Hemoglobin 10.2(L) 11.7 - 15.5 g/dL [facility] Hematocrit 30.2(L) 35.7 - 45.8 % [facility] MCV 97.1(H) 82.6 - 94.4 fL [facility] MCH 32.8(H) 27.1 - 32.0 pg [facility] MCHC 33.8 31.7 - 35.0 g/dL [facility] Platelets 151 145 - 357 x10(3)/[facility] RDWSD 44.9 37.0 - 46.0 [facility] RDWCV 12.8 11.5 - 14.1 % [facility] MPV 9.8 7.6 - 12.9 [facility] nRBC % Auto 0.0 % [facility] nRBC Abs Auto 0.000 0.000 - 0.000 x10(3)/[facility] Blood 05/10/2023 2:28 AM EDT 05/10/2023 2:57 AM EDT Narrative Resulting Agency Comment Spec In Lab Klaudia Reid MD HEMATOLOGY OR DERABLES [facility] [place] [address] * (ABNORMAL) Comprehensive metabolic panel (non-fasting) (05/10/2023 2:28 AM EDT) Glucose Lvl 100 65 - 199 mg/dL [facility] Comment:Diabetes: >=200 mg/d L plus symptoms BUN 30(H) 8 - 18 mg/dL [facility] Creatinine 0.90 0.70 - 1.20 mg/dL [facility] Sodium 134(L) 135 - 145 mmol/L [facility] Potassium 4.1 3.5 - 5.0 mmol/L [facility] Comment: Please note: ??Patients with WBC >100,000 may have falsely elevated Potassium levels. ??For accurate Potassium quantification in these patients send serum separator tube (gold top) for subsequent determinations. ??Contact the Clinical Chemistry Laboratory if there are any questions. Chloride 102 98 - 107 mmol/L [facility] CO2 20(L) 22 - 31 mmol/L [facility] Anion Gap 12 5 - 15 mmol/L [facility] Calcium 9.3 8.5 - 10.5 mg/dL [facility] Total Protein 6.4 6.1 - 8.0 g/dL [facility] Albumin 3.7 3.2 - 5.2 g/dL [facility] AST 24 0 - 30 unit/L [facility] ALT 14 0 - 30 unit/L [facility] Alk Phos 70 35 - 105 unit/L [facility] Total Bilirubin 0.5 0.2 - 1.3 mg/dL [facility] Estimated GFR 70 >=60 mL/min/1. 73 m?? [facility] Lab Radha Hollins MD CHEMISTRY ORDERABL ES [facility] [place] [address] * Heparin (unfractionated) Level (05/10/2023 2:28 AM EDT) [facility] Heparin UFH Level 0.37 IU/mL [facility] Comment: Heparin (anti-Xa) levels [...] Lab Radha Hollins MD HEMATOLOGY ORDERAB LES [facility] [place] [address] * (ABNORMAL) Differential, Automated (05/09/2023 4:00 AM EDT) [facility] Neutrophils % 81.7 % [facility] Neutr Abs (ANC) 5.26 1.70 - 6.10 x10(3)/mc L [facility] Lymphocytes % 10.7 % [facility] Lymphocytes Abs 0.7(L) 0.9 - 3.2 x10(3)/mc L [facility] Monocytes % 6.5 % [facility] Monocyte Abs 0.4 0.3 - 0.9 x10(3)/mc L [facility] Eosinophils % 0.5 % [facility] Eosinophils Abs 0.0 0.0 - 0.4 x10(3)/mc L [facility] Basophils % 0.3 % [facility] Basophils Abs 0.0 0.0 - 0.1 x10(3)/mc L [facility] Immature Gran % 0.30 % [facility] Comment: Immature granulocytes(IG's)percentage and absolute count will include metamyelocytes, myelocytes, and promyelocytes. Blood smears from CBCs yielding IG's will be scanned manually for concordance. If this scan disagrees with the automated IG or if promyelocytes are noted, a manual differential will be performed. Amanda Gran Abs 0.02 0.00 - 0.04 x10(3)/[facility] Blood 05/09/2023 4:00 AM EDT 05/09/2023 4:19 AM EDT Narrative Resulting Agency Comment Spec In Lab Klaudia Reid MD HEMATOLOGY OR DERABLES Performing Organization Address City/State/[facility] Co de Phone Number [facility] [place] [address] * (ABNORMAL) Hemogram (05/09/2023 4:00 AM EDT) WBC 6.4 4.0 - 9.5 x10(3)/[facility] RBC 3.15(L) 4.00 - 5.21 x10(6)/[facility] Hemoglobin 10.2(L) 11.7 - 15.5 g/dL [facility] Hematocrit 30.3(L) 35.7 - 45.8 % [facility] MCV 96.2(H) 82.6 - 94.4 fL [facility] MCH 32.4(H) 27.1 - 32.0 pg [facility] MCHC 33.7 31.7 - 35.0 g/dL [facility] Platelets 151 145 - 357 x10(3)/[facility] RDWSD 44.7 37.0 - 46.0 fL [facility] RDWCV 12.8 11.5 - 14.1 % [facility] MPV 9.4 7.6 - 12.9 fL [facility] nRBC % Auto 0.0 % [facility] nRBC Abs Auto 0.000 0.000 - 0.000 x10(3)/mcL [facility] Blood 05/09/2023 4:00 AM EDT 05/09/2023 4:19 AM EDT Narrative Resulting Agency Comment Spec In Lab Klaudia Reid MD HEMATOLOGY OR DERABLES Performing Organization Address [facility] Co de Phone Number [facility] [place] [address] * Heparin (unfractionated) Level (05/09/2023 4:00 AM EDT) Heparin UFH Level 0.47 IU/mL [facility] Comment: Heparin (anti-Xa) levels [...] HEMATOLOGY ORDERAB LES Performing Organization Address [facility] Co de Phone Number [facility] [place] [address] * (ABNORMAL) Comprehensive metabolic panel (non-fasting) (05/09/2023 4:00 AM EDT) Glucose Lvl 108 65 - 199 mg/dL [facility] Comment:Diabetes: >=200 mg/d L plus symptoms BUN 31(H) 8 - 18 mg/dL [facility] Creatinine 1.03 0.70 - 1.20 mg/dL [facility] Sodium 137 135 - 145 mmol/L [facility] [...] questions. Chloride 102 98 - 107 mmol/L [facility] CO2 20(L) 22 - 31 mmol/L [facility] Anion Gap 15 5 - 15 mmol/L [facility] Calcium 9.3 8.5 - 10.5 mg/dL [facility] Total Protein 6.6 6.1 - 8.0 g/dL [facility] Albumin 3.8 3.2 - 5.2 g/dL [facility] AST 32(H) 0 - 30 unit/L [facility] ALT 18 0 - 30 unit/L [facility] Alk Phos 78 35 - 105 unit/L [facility] Total Bilirubin 0.5 0.2 - 1.3 mg/dL [facility] Estimated GFR 60 >=60 mL/min/1. 73 m?? [facility] [...] MD CHEMISTRY ORDERABL ES Performing Organization Address [facility]/ZIP Co de Phone Number [facility] [place] [address] * (ABNORMAL) pro-Brain Natriuretic Peptide (05/08/2023 4:00 PM EDT) ProBNP 25,503(H) <=124 pg/mL [facility] Blood Venous Draw / Unknown 05/08/2023 4:00 PM EDT 05/08/2023 4:25 PM EDT Narrative Resulting Agency Comment Spec In Lab Juan Luis Gonzalez MD CHEMISTRY ORDERABLES Performing Organization Address [facility] Co de Phone Number [facility] [place] [address] * Magnesium (05/08/2023 4:00 PM EDT) Magnesium 0.82 0.69 - 1.07 mmol/L [facility] Blood 05/08/2023 4:00 PM EDT 05/08/2023 4:06 PM EDT Narrative Resulting Agency Comment Spec In Lab Enrique Chua MD CHEMISTRY ORDERABLES Performing Organization Address [facility] Co de Phone Number [facility] [place] [phone] * Potassium (05/08/2023 4:00 PM EDT) Potassium 3.9 3.5 - 5.0 mmol/L [facility] ORDERABL ES Performing Organization Address [facility] de Phone Number [facility] [place] [address] * Heparin (unfractionated) Level (05/08/2023 4:00 PM EDT) Pathologist [facility] Heparin UFH Level 0.43 IU/mL [facility] Comment: Heparin (anti-Xa) levels [...] MD HEMATOLOGY ORDERAB LES Performing Organization Address [facility] Co de Phone Number [facility] [place] [address] * EKG 12 Lead (05/08/2023 3:51 PM EDT) Ventricular rate 98 BPM MUSE SYSTEM Atrial Rate 98 BPM MUSE SYSTEM P-R Interval 150 ms MUSE SYSTEM QRS Duration 102 ms MUSE SYSTEM Q-T Interval 358 ms MUSE SYSTEM QTC Calculated (Bezet) 457 ms MUSE SYSTEM Calculated P Penelope 38 degrees MUSE SYSTEM Calculated R Penelope 48 degrees MUSE SYSTEM Calculated T Penelope -112 degrees MUSE SYSTEM INTERPRETATION Sinus rhythm with frequent and consecutive Premature ventricular and fusion complexes Septal infarct , age undetermined ST & T wave abnormality, consider anterolateral ischemia Abnormal ECG When compared with ECG of 09-NOV-2022 11:17, T wave inversion now evident in Anterolateral leads Confirmed by MD Harshil, Enrique Bell ([id number]) on 05/10/2023 8:11:46 AM MUSE SYSTEM 05/08/2023 3:51 PM EDT 05/10/2023 8:11 AM EDT Radha Hollins MD ECG ORDERABLES MUSE SYSTEM * (ABNORMAL) Differential, Automated (05/08/2023 11:38 AM EDT) Neutrophils % 71.3 % [facility] Neutr Abs (ANC) 2.91 1.70 - 6.10 x10(3)/[facility] Lymphocytes % 19.1 % [facility] Lymphocytes Abs 0.8(L) 0.9 - 3.2 x10(3)/[facility] Monocytes % 9.0 % [facility] Monocyte Abs 0.4 0.3 - 0.9 x10(3)/[facility] Eosinophils % 0.2 % [facility] Eosinophils Abs 0.0 0.0 - 0.4 x10(3)/[facility] Basophils % 0.2 % [facility] Basophils Abs 0.0 0.0 - 0.1 x10(3)/[facility] Immature Gran % 0.20 % [facility] Comment: Immature granulocytes(IG's)percentage and absolute count will include metamyelocytes, myelocytes, and promyelocytes. Blood smears from CBCs yielding IG's will be scanned manually for concordance. If this scan disagrees with the automated IG or if promyelocytes are noted, a manual differential will be performed. Amanda Gran Abs 0.01 0.00 - 0.04 x10(3)/[facility] Blood 05/08/2023 11:3 8 AM EDT 05/08/2023 11:44 AM EDT Narrative Resulting Agency Comment Spec In Lab Lincoln Sal MD HEMATOLOGY ORDERA BLES [facility] [place] [address] * (ABNORMAL) Hemogram (05/08/2023 11:38 AM EDT) WBC 4.1 4.0 - 9.5 x10(3)/[facility] RBC 3.05(L) 4.00 - 5.21 x10(6)/[facility] Hemoglobin 10.2(L) 11.7 - 15.5 g/dL [facility] Hematocrit 29.6(L) 35.7 - 45.8 % [facility] MCV 97.0(H) 82.6 - 94.4 [facility] MCH 33.4(H) 27.1 - 32.0 pg [facility] MCHC 34.5 31.7 - 35.0 g/dL [facility] Platelets 136(L) 145 - 357 x10(3)/[facility] RDWSD 44.3 37.0 - 46.0 [facility] RDWCV 12.6 11.5 - 14.1 % [facility] MPV 9.4 7.6 - 12.9 [facility] nRBC % Auto 0.0 % [facility] nRBC Abs Auto 0.000 0.000 - 0.000 x10(3)/[facility] Blood 05/08/2023 11:3 8 AM EDT 05/08/2023 11:44 AM EDT Narrative Resulting Agency Comment Spec In Lab Lincoln Sal MD HEMATOLOGY ORDERA BLES [facility] [place] [address] * TSH (05/08/2023 11:38 AM EDT) TSH 1.27 0.27 - 4.20 mcIU/mL [facility] Comment: Reference Interval (mcIU/mL): Females: ??First Trimester: 0.23-3.88 ??Second Trimester: 0.22-3.90 ??Third Trimester: 0.44-4.66 Blood 05/08/2023 11:3 8 AM EDT 05/08/2023 11:44 AM EDT Narrative Resulting Agency Comment Spec In Lab Enrique Chua MD CHEMISTRY ORDERABLES Performing Organization Address City/[facility] Co de Phone Number [facility] [place] [address] * (ABNORMAL) Phosphorus (05/08/2023 11:38 AM EDT) Phosphorus 4.7(H) 2.5 - 4.5 mg/dL [facility] Blood 05/08/2023 11:3 8 AM EDT 05/08/2023 11:44 AM EDT Narrative Resulting Agency Comment Spec In Lab Enrique Chua MD CHEMISTRY ORDERABLES Performing Organization Address City/[facility]/ZIP Co de Phone Number [facility] [place] [address] * Magnesium (05/08/2023 11:38 AM EDT) Magnesium 0.76 0.69 - 1.07 mmol/L [facility] Blood 05/08/2023 11:3 8 AM EDT 05/08/2023 11:44 AM EDT Narrative Resulting Agency Comment Spec In Lab Enrique Chua MD CHEMISTRY ORDERABLES [facility] [place] [address] * (ABNORMAL) Basic Metabolic Panel (non-fasting) (05/08/2023 11:38 AM EDT) Glucose Lvl 97 65 - 199 mg/dL [facility] Comment:Diabetes: >=200 mg/d L plus symptoms BUN 27(H) 8 - 18 mg/dL [facility] Creatinine 1.02 0.70 - 1.20 mg/dL [facility] Sodium 139 135 - 145 mmol/L [facility] [...] questions. Chloride 105 98 - 107 mmol/L [facility] CO2 20(L) 22 - 31 mmol/L [facility] Anion Gap 14 5 - 15 mmol/L [facility] Calcium 9.4 8.5 - 10.5 mg/dL [facility] Estimated GFR 60 >=60 mL/min/1. 73 m?? [facility] [...] Lab Enrique Chua MD CHEMISTRY ORDERABLES [facility] [place] [id number] * ECHO COMPLETE (05/08/2023 11:02 AM EDT) EF 25 HEARTLAB SYSTEM Anatomical Region Laterality Modality Cardiac Other 05/08/2023 10:0 3 AM EDT Narrative 05/08/2023 11:51 AM EDT ? Echocardiogram Report Name: PURNIMA THACKER ?Study Date: 05/08/2023 10:03 AMBP: 92/64 mmHg ? Patient Location: [facility]^CV29^A : 1955 ? Height: 155 cm ? Account: [id number] Age: 67 yrs ? Weight: 78 kg Gender: Female ?BSA: 1.8 m2 Ordering Physician: ENRIQUE CHUA Referring Physician: MARIO ALBERTO CHIN Performed By: CHUCKIE Canchola Reason For Study: SAVR Stenosis Exam Location: [facility]. Interpretation Summary -Left ventricle is severely dilated [...] worsening stenosis. Mitral regurgitation is similar. Procedure Complete-[id number]. Satisfactory quality. There is normal sinus rhythm. [...] Study Date: 0:03 AMBP: 92/64 mmHg Patient Location:[place]^CV29^A : 1955 Height: 155 cm Account: [id number] Age: 67 yrs Weight: 78 kg Gender: Female BSA: 1.8 m2 Ordering Physician: ENRIQUE CHUA Referring Physician: MARIO ALBERTO CHIN Performed By: CHUCKIE Canchola Reason For Study: SAVR Stenosis Exam Location: [facility]. Interpretation Summary -Left ventricle is severely dilated [...] suggestsworsening stenosis. Mitral regurgitation is similar. Procedure Complete-[id number]. Satisfactory quality. There is normal sinus rhythm. [...] E/ e' (lat): 11.3 Med Peak E' Ewro: 9.3 cm/sec E/e' (med): 10.2 E/e' Average: [...] AM EDT) Heparin UFH Level 0.54 IU/mL [facility] Comment: Heparin (anti-Xa) levels [...] Lab Enrique Chua MD HEMATOLOGY ORDERABLE S [facility] [place] [address] documented in this encounter Visit Diagnoses Diagnosis S/P TAVR (transcatheter aortic valve replacement)- Primary Aortic valve stenosis, etiology of cardiac valve disease unspecified Heart failure with reduced ejection fraction due to heart valve disease Mild coronary artery disease by [facility] 11/09/2022 Mixed connective tissue disease Other [...] ejection fraction Mild coronary artery disease by [facility] 11/09/2022 Stenosis of prosthetic aortic valve [...] dose on Wed05/12/23 at 1030, Until Discontinued, [place] teeth, Routine Given 05/12/2023 10:04 AM EDT [...] at 0831, Side port TKO rate, per [place] flush protocol Rate/Dose Verify 05/13/2023 6:00 AM EDT 10 mL/hr 10 mL/hr Rate/Dose Verify 05/13/2023 4:00 AM EDT 10 mL/hr 10 mL/h r Rate/Dose Verify 05/13/2023 2:00 AM EDT 10 mL/hr 10 mL/h r sodium chloride 0.9% infusion 10-30 mL/hr, Intravenous, DAILY PRN, Starting on Wed05/12/23 at 0944, Until Wed05/17/23 at 0831, Side port TKO rate, per [place] flush protocol. Rate/Dose Verify 05/17/2023 8:00 AM [...] CONTINUOUS, Starting on Wed05/12/23 at 1030, Until [facility] 05/13/23 at 0826, Titrate to keep systolic [...] post-op day 1 in the AM Give ND if unable to take PO, Routine Group [...] Routine documented in this encounter Care Teams Concrete Mixer Relationship Specialty Start Date End Date Magdalena Acosta MD [address] [place] [address] PCP - General Family Medicine 02/05/23 documented as of this encounter
--- OUTSIDE RECORDS SUMMARY | 2024-02-17 14:24 | XMS_ITS | Encounter Summary ---
[place] [address] Care Team Providers Care Barometers Calibrator Name Role Phone Magdalena Acosta MD Primary Care Provider [phone] Reason for Visit * Auth/Cert (Routine) Specialty Diagnoses / Procedures Referred By Contac t Referred To Contact Diagnoses Symptomatic severe aortic stenosis with low ejection fraction NSTEMI, CHF Haris Chua MD [facility] [place] [address] [facility] Referral ID Status Reason Start Date Expiration Date Visits Re quested Visits Authorized [id number] 1 1 Encounter Details Date Type Department Care Team (Late st Contact Info) Description 05/12/2023 7:35 AM EDT Anesthesia Event [employer] [place] [address] Lynda Mcgowan MD [facility] [place] [address] Alie Park MD [facility] [place] [address] Anesthesia Record Procedure Summary Procedure Name Responsible [...] cephalic vein (lateral side of arm), left; [id number] catheter system; Anatomical Landmarks; US Not Used; [...] RN LDA Cath/EP Sheath 05/12/23; 0733; 14 [place] Islander (Fr); Right; Femoral; Arterial 05/12/23 0733 by Guerda Bender, RN 05/12/23 0830 by Guerda Bender RN LDA Cath/EP Sheath 05/12/23; 0734; 6 [place] (Fr); Right; Femoral; Venous 05/12/23 0734 by Guerda Bender RN 05/12/23 0817 by Guerda Bender RN LDA Cath/EP Sheath 05/12/23; 0734; 7 [place]er (Fr); Left; Femoral; Arterial 05/12/23 0734 by Guerda Bender, RN 05/12/23 0837 by Guerda Bender RN LDA Cath/EP Sheath 05/12/23; 0734; 6 [place]er (Fr); Left; Femoral; Venous 05/12/23 0734 by [...] Notes * Anesthesia Postprocedure Evaluation - Lynda Mcgowan MD - 05/12/2023 9:45 AM EDT Department of Anesthesiology Post-procedure Note Patient: Purnima Thacker Procedure Summary Date: 05/12/23 Room / Location: NUCLEAR MEDICINE CHIEF TECHNOLOGIST / [facility] Anesthesia Start: 734 Anesthesia [...] All Anesthesia Providers: Anesthesiologist: Lynda Mcgowan MD Student Assistance Counselor: Nico Graham MD Vitals Value Taken Time [...] 05/08/2023 ??? Mild coronary artery disease by [facility] 11/09/2022 05/08/2023 ??? Heart failure with [...] IMG S&I N/A 11/09/2022 CORONARY ANGIOGRAPHY; W [facility],POSSIBLE PCI (WRVU 5.6) performed by Nitesh Escobedo MD at [facility] ??? PRO AORTOPLAS FOR SUPRAVALV STEN N/A 09/21/2016 @AORTOPLASTY FOR SUPRAVALVULAR STENOSIS (WRVU 29.33) performed by Alirio Esparza MD at [facility] MAIN OR ??? PRO REPLACEMENT PROSTHETIC AORTIC VALVE OPEN W CARDIOPULMONARY BYPASS HOMOGRF/STENT N/A 09/21/2016 @REPLACE AORTIC VALVE, OPEN, W\CPB, W\PROSTHETIC VALVE (WRVU 41.32) performed by Alirio Esparza MD at [facility] MAIN OR Social History Tobacco Use [...] 3 general, with a(n) intravenous induction Add-on [id number] TAVR. In cardiogenic shock. Has arterial line, cordis and PA catheter. Last index 1.7 by thermodilution and 1.4 by mixed venous. Region - Intrathoracic Cardiac Informed Consent: Anesthetic plan and risks discussed with patient. Use of blood products discussed with patient who consented to blood products. Plan discussed with resident. Anesthesia Screening documented in this encounter Miscellaneous Notes * Addendum Note - Lynad Mcgowan MD - 05/12/2023 10:19 AM EDT Addendum created 05/12/23 1019 by yLnda Mcgowan MD Intraprocedure Meds edited documented in this encounter Plan of Treatment Upcoming Encounters Date Type Department Care Team (Late st Contact Info) Description 02/22/2024 4:15 PM EDT Office Visit Dermatology at [place] [address] [place] [address] Marek Bonilla MD [address] [place] [address] 06/05/2024 11:30 AM EST Office [place] [address] Magdalena Peralta MD [facility] [place] [address] documented as of this encounter Visit Diagnoses [...] mL/hr documented in this encounter Care Teams Barometers Calibrator Relationship Specialty Start Date End Date Magdalena Acosta MD [address] [place] [address] PCP - General Family Medicine 02/05/23 documented as of this encounter
--- OUTSIDE RECORDS SUMMARY | 2024-02-17 14:25 | XMS_ITS | Encounter Summary ---
Author Organization [facility] [place] [address] Care Team Providers Care Human Resources Safety Manager Name Role Phone Magdalena Acosta MD Primary Care Provider [phone] Encounter Details Date Type Department Care Team [...] PM EDT Office Visit Dermatology at [address] [address] Marek Bonilla MD [address] [place] [address] [place] [address] 06/05/2024 11:30 AM EST Office [place] [address] Magdalena Peralta MD [facility] [place] [address] documented as of this encounter Visit Diagnoses Not on filedocumented in this encounter Care Teams Human Resources Safety Manager Relationship Specialty Start Date End Date Magdalena Acosta MD [address] [place] [address] PCP - General Family Medicine 02/05/23 documented as of this encounter
--- OUTSIDE RECORDS SUMMARY | 2024-02-17 14:25 | XMS_ITS | Encounter Summary ---
Author Organization [facility] [place] [address] Care Team Providers Care Paint Tinter Name Role Phone Magdalena Acosta MD Primary Care Provider [phone] Encounter Details Date Type Department Care Team (Late st Contact Info) Description 04/27/2023 3:00 PM EDT Office [place] [address] Magdalena Peralta MD [facility] [place] [address] Mixed connective tissue disease Social History Tobacco [...] 1:5120 speckled; VIC negative; Myositis panel with BARTENDER SERVER ab 149.1 (positive); Anti U1RNP IgG 119; [...] 4:15 PM EDT Office Visit Dermatology at [place] [address] [place] [address] Marek Bonilla MD [address] [facility] [place] [address] 06/05/2024 11:30 AM EST Office [place] [address] Magdalena Peralta MD [facility] [place] [address] documented as of this encounter Visit Diagnoses Diagnosis Mixed connective tissue disease Other specified diffuse disease of connective tissue documented in this encounter Care Teams Paint Tinter Relationship Specialty Start Date End Date Magdalena Acosta MD [address] [place] [address] PCP - General Family Medicine 02/05/23 documented as of this encounter
--- OUTSIDE RECORDS SUMMARY | 2024-02-17 14:25 | XMS_ITS | Encounter Summary ---
Author Organization [facility] [place] [address] Care Team Providers Care [employer] Name Role Phone Magdalena Acosta MD Primary Care Provider [phone] Encounter Details Date Type Department Care Team (Late st Contact Info) Description 05/08/2023 [place] [phone] Luis Felipe Ott MD [facility] [place] [address] Social History Tobacco Use Types Packs/Day Years [...] 0426 Referring Provider: Nitesh Baltazar Patient Location: [facility] Presenting Symptoms per OSH: 67 year old [...] diuresis with IV furosemide 20 x 1 ([id number] at rheumatology appointment), SpO2 85% on RA -> 95% on 2L NC, HR 120s. Examination significant for decreased breath sounds at the bases. Pertinent Diagnostic Findings: CBC - Hgb 10.5 CMP - Cr 1.1 BNP 84592 HsTrop 1358 Lactate 1.6 D-dimer 1183, CTPE pending CXR demonstrated pulmonary vascular congestion US showed bilateral b lines Bedside echo reportedly similar to prior TTE for LV function OSH Interventions: ASA 324 Heparin gtt Plan: Transfer to [facility] Above recommendations/plans are based on my conversation with the referring provider. I have not personally interviewed or examined this patient. Luis Felipe Ott MD [employer] Received a call from provider emergently at 715am. Mentating well and BP 87/53. HR 108 and diursingwell. They were about to start phenylephrine which I stressed was not a good option given concern for severe and increasing afterload. She is warm on exam, mentating and urinating and we do not need to amrit a BP if those things remain stable. Nico Segura, PGY-6 [employer] [id number] documented in this encounter Plan of Treatment Upcoming Encounters Date Type Department Care Team (Late st Contact Info) Description 02/22/2024 4:15 PM EDT Office Visit [facility] [place] [address] [place] [phone] Marek Bonilla MD [address] [place] [address] 06/05/2024 11:30 AM EST [place] [address] Magdalena Peralta MD [facility] [place] [address] documented as of this encounter Visit Diagnoses Not on filedocumented in this encounter Care Teams [employer] Relationship Specialty Start Date End Date Magdalena Acosta MD [address] [place] [address] PCP - General Family Medicine 02/05/23 documented as of this encounter
--- OUTSIDE RECORDS SUMMARY | 2024-02-17 14:25 | XMS_ITS | Encounter Summary ---
Author Organization [facility] [place] [address] Care Team Providers Care Blender Name Role Phone Magdalena Acosta MD Primary Care Provider [phone] Reason for Visit * Auth/Cert (Routine) Specialty Diagnoses / Procedures Referred By Contac t Referred To Contact Diagnoses Symptomatic severe aortic stenosis with low ejection fraction NSTEMI, CHF Enrique Chua MD [facility] [place] [address] [facility] Referral ID Status Reason Start Date Expiration Date Visits Re quested Visits Authorized [id number] 1 1 Encounter Details Date Type Department Care Team (Late st Contact Info) Description 05/12/2023 2:50 PM EDT - 05/12/2023 3:50 PM EDT [place] [address] Antelmo Sharma MD [facility] [address] CARDIAC CATHETERIZATION Social History Tobacco Use Types Packs/Day Years Used Date Smoking Tobacco: Never Smokeless Tobacco: Never Alcohol Use Standard Drinks/Week Comments No 0 (1 standard drink = 0.6 oz pur e alcohol) none [facility] Inpatient Questions Answer Date Recorded Does Anyone [...] Patient Age: 67 y.o. Birthdate: 1955 Language: Lao Race: White Ethnicity: Not nor Admit Date: 05/08/2023 Discharge Date: 05/22/2023 Attending Physician: Alirio Hudson MD Follow-up Recommendations for Providers: Please continue routine management of cardiovascular risk factors including blood pressure, lipids,glucose, etc. Please note any medication changes. Patient to follow up with PCP, Magdalena Acosta MD, or Primary Lay Out Worker, Maria Luz Mejia MD, in ~ 7-10 days. Patient to follow up with Regional Sales Representative, Dr. Antelmo Sharma, in 2 weeks with an EKG, Echo, CBC, and CMP. Patient to follow up with Nephrology, their office to arrange. Cvpe-Zesgrb-hq interval: After initial 30 day follow-up appointment , all TAVR patients will follow-up again in one year with an echo. 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 Secondary Diagnoses: Active Hospital Problems Diagnosis S/P TAVR (transcatheter aortic valve replacement) Cardiogenic shock Symptomatic severe aortic stenosis with low ejection fraction Mild coronary artery disease by [facility] 11/09/2022 Heart failure with reduced ejection fraction [...] Tube Placement Right 05/18/2023 Laure Ricks PA [facility] INTERVENTIONL RAD PRG CATH PLMT LEFT HEART CATH & ARTS W/INJ & ANGIO IMG S&I N/A 11/09/2022 CORONARY ANGIOGRAPHY; W [facility],POSSIBLE PCI (WRVU 5.6) performed by Mario Alberto Escobedo MD at [facility] CATH LABS PRG COMBINED RIGHT & LEFT HEART CATH W/INJ L VENTRICULOGRAPHY, IMG S&I N/A 05/12/2023 COMBINED RIGHT & LEFT HEART CATH,INC INJ FOR L VENTRICULOGRAPHY (WRVU 5.99) performed by Antelmo Sharma MD at [facility] CATH LABS PRO AORTOPLAS FOR SUPRAVALV STEN N/A 09/21/2016 @AORTOPLASTY FOR SUPRAVALVULAR STENOSIS (WRVU 29.33) performed by Alirio Hudson MD at [facility] MAIN OR PRO REPLACE AORTIC VALVE (TAVR/FEDERICO)PERC FEMORAL ARTERY APPROACH 05/12/2023 @TRANSCATHETER AORTIC VALVE REPLACEMENT (TAVR), PERCUTANEOUS FEMORAL (WRVU 22.47) performed by Alirio Hudson MD at [facility] CATH LABS PRO REPLACEMENT PROSTHETIC AORTIC VALVE OPEN W CARDIOPULMONARY BYPASS HOMOGRF/STENT N/A 09/21/2016 @REPLACE AORTIC VALVE, OPEN, W\CPB, W\PROSTHETIC VALVE (WRVU 41.32) performed by Alirio Hudson MD at [facility] MAIN OR Prior To Admission Medications Medications [...] Major Procedures/Operations: 05/12/23: Successful right transfemoral TAVR Jwbjc-yr-Kslyc with a 23 mm Lai 3 THV. Left coronary protection with left main MINNA. Hospital Course: #Severe prosthetic s/p valve in valve TF TAVR #Low coronary heights s/p left main stent for coronary protection #Type 2 NSTEMI, present on arrival, resolved #Acute decompensated HFrEF #Cardiogenic shock #EVANS / Cardiorenal syndrome Purnima Thacker was admitted to [facility] on 05/08/2023 via the Cardiology Service with [...] TAVR and she was brought to the medical laboratory manager the following morning where Drs. Alirio Hudson [...] if you have questions. Please call your Regional Sales Representative's office if you have any discharge or drainage from your procedural sites. Your Regional Sales Representative, Dr. Antelmo Sharma and/or the Healthcare Insurance Sales Agent may be reached at . Antibiotic prophylaxis: You will need to take antibiotics prior to many invasive tests and treatments, such as dental cleaning, which should be done every 6 months. Your primary care physician or your dentist can prescribe this medication. Please refer to the card with the [place] [employer] Guidelines for more information. You have been provided with a copy of this card. Please refer to the [place] [employer] Guidelines for more information. Good [...] friends, go to a movie, go to rastafarian, etc. Heavy activities: No hunting, skiing, jogging, [...] should resume a low fat, low cholesterol, [place] [employer] Diet Driving: No restrictions. Shower/Bath: You may shower daily. No baths, soaking, or swimming for the first week. Wound care: Wash the sites daily with soap and rinse well, pat dry. Assess for any signs of infection such as increased redness, pain, warmth or drainage. Please call your contract designer's office if you have any discharge or drainage from your procedural sites. If there is a lot of swelling, apply mamta wraps during the day and remove at bedtime. Elevate your legs when you are sitting. Home oxygen therapy: N/A Follow up appointments: Please schedule a follow-up appointment with your PCP, Magdalena Acosta MD, or Primary Lay Out Worker in ~ 7-10 days. You have a follow-up appointment with your Regional Sales Representative, Dr. Antelmo Sharma, in 2 weeks with an EKG, Echo, and labs prior to your appointment. You will need follow-up with Nephrology, their office will arrange. Vgzo-Topzog-qz interval: After initial 30 day follow-up appointment , all TAVR patients will follow-up again in one year with an echo. Cardiac Rehabilitation: Purnima Thacker was seen today regarding participation in the outpatient Phase 2 Cardiac Rehabilitation at [facility]. The patient agrees to a referral to this program. The referral will be sent at discharge and the patient should be contacted by the Program within 1- 2 weeks from discharge. Future Appointments and Orders Future Appointments and Orders Future Appointments Provider Department Dept Phone 07/29/2023 11:00 AM Magdalena Peralta MD Rheumatology at [facility] Arrive at: Telemetry Rn Area [phone] 02/11/2024 2:00 PM Marek Bonilla MD Dermatology at [place] Arrive at: [facility] [address] [phone] Future Orders Complete By Expires Type and Screen Future Surgery, [facility] SAME DAY PROGRAM ONLY) [[id number] Custom] 05/11/2023 Process Instructions: This test is intended ONLY for patients with upcoming surgery for testing prior to the day of surgery obtained through the same day program (4V or SDP). For ALL OTHER PATIENTS, order a Type and Screen (XQB134) This order includes the physician order for an ABO Recheck if requested by the Blood Bank. Scheduling Instructions: Comments: Questions: Date of surgery: CBC (with Diff) [[id number] Custom] 06/05/2023 12/05/2023 Process Instructions: INCLUDES: WBC, RBC, Hgb, Hct, Platelets, RBC Indices and Differential Scheduling Instructions: Comments: Questions: Comprehensive metabolic panel (non-fasting) [LAB17 Custom] 06/05/2023 08/20/2023 Process Instructions: INCLUDES: Calcium, T Protein, Albumin, AST, ALT, Alk Phos, T Bili, BUN, Creat, GFR, Glucose, Lytes. Scheduling Instructions: Comments: Questions: Echocardiogram Transthoracic [47988 CPT(R)] 06/05/2023 12/05/2023 Process Instructions: Scheduling Instructions: Questions: Where will study be performed?: [facility] Clinics Does the patient have Congenital Heart Disease?: Does patient require sedation?: GA rationale: EKG 12 Lead [71291 CPT(R)] 06/05/2023 12/05/2023 Process Instructions: Scheduling Instructions: Questions: Which location will this be performed?: [facility] Is a rhythm strip needed?: No [facility] Devices [EQ161 Custom] As directed Process Instructions: Scheduling Instructions: Questions: Device Needed: WALKER (E0143) Patient Height (cm): 154.9 cm (5' 0.98) Patient Weight: 75.4 kg (166 lb 3.2 oz) Diagnosis: Unsteady gait when walking Referral to Cardiac Rehab [ATZ770 Custom] As directed Process Instructions: If no progress note charted, please enter Clinical details in comments. Scheduling Instructions: Questions: My question or request is: s/p TAVR. Cardiac rehab at [facility]. Referral to Home Health [REF34 Custom] As directed Process Instructions: If no progress note charted, please enter Clinical details in comments. Scheduling Instructions: Comments: DOCUMENTATION FOR VNA SERVICES PATIENT'S LOCATION: Purnima Thacker [address] [place] [phone] (home) Heavy Line Technician's Name: Irineo and brother Raymond In discussion with the attending physician, it is certified that this patient is under his/her careand that MD, or an TEA BAG PACKER, CARBON PAPER COATING SUPERVISOR, or PA who is working directly with him/her, had a ypos-dh-uleg encounter that meets the physician djgg-nh-hdff encounter requirements with this patient on 05/22/2023. [...] for managing ADLs. HOME HEALTH CARE AGENCY: [facility]. [address] [facility] [address] PHONE: [phone] FAX: [phone] Start of care: Ideally 24-48 hours after [...] [address] [facility] [phone] All VNA agencies which cover the area of patient's residence have been reviewed, either verbally joao writing, and patient has chosen the home health care agency noted. Questions: Disciplines Requested: Physical Therapy Occupational Therapy Discharge References/Attachments None Arrangements for VNA/home care: As above. (delete if no VNA) Signed: EKATERINA NAVARRETE [facility] Section of Cardiac Surgery Date: 05/22/2023 CC: Magdalena Acosta MD DelaneyMario Alberto maxwell MD [address] [place] [address] [place] [address] documented in this encounter Discharge Instructions * Patient Instructions* Vinod Juárez PA - 05/22/2023 9:32 AM EDT TAVR Discharge Instructions: Call your doctor if: You have a fever of greater than 101 degrees, shaking chills, if you develop redness or drainage from your procedure sites, or if you have questions. Please call your Regional Sales Representative's office if you have any discharge or drainage from your procedural sites. Your Regional Sales Representative, Dr. Antelmo Sharma and/or the Healthcare Insurance Sales Agent may be reached at . Antibiotic prophylaxis: You will need to take antibiotics prior to many invasive tests and treatments, such as dental cleaning, which should be done every 6 months. Your primary care physician or your dentist can prescribe this medication. Please refer to the card with the [place] [employer] Guidelines for more information. You have been provided with a copy of this card. Please refer to the [place] [employer] Guidelines for more information. Good [...] friends, go to a movie, go to rastafarian, etc. Heavy activities: No hunting, skiing, jogging, [...] should resume a low fat, low cholesterol, [place] [employer] Diet Driving: No restrictions. Shower/Bath: You may shower daily. No baths, soaking, or swimming for the first week. Wound care: Wash the sites daily with soap and rinse well, pat dry. Assess for any signs of infection such as increased redness, pain, warmth or drainage. Please call your contract designer's office if you have any discharge or drainage from your procedural sites. If there is a lot of swelling, apply mamta wraps during the day and remove at bedtime. Elevate your legs when you are sitting. Home oxygen therapy: N/A Follow up appointments: Please schedule a follow-up appointment with your PCP, Magdalena Acosta MD, or Primary Lay Out Worker in ~ 7-10 days. You have a follow-up appointment with your Regional Sales Representative, Dr. Antelmo Sharma, in 2 weeks with an EKG, Echo, and labs prior to your appointment. You will need follow-up with Nephrology, their office will arrange. Cesl-Dosjuw-xw interval: After initial 30 day follow-up appointment , all TAVR patients will follow-up again in one year with an echo. Cardiac Rehabilitation: Purnima Gallegol was seen today regarding participation in the outpatient Phase 2 Cardiac Rehabilitation at [facility]. The patient agrees to a referral [...] ins ( tef) Haven Ba, PT Pager: [phone] Physical Therapy Inpatient Rehabilitation Department * Nico [...] 0600 and on the weekends please page [phone]. * Jory Paniagua Magalie - 05/20/2023 3:52 [...] vomiting Last Bowel Movement: 05/20/23 Jory Paniagua Elevator Troubleshooter * Tong Mike, OT - 05/20/2023 3:16 [...] Tube Placement Right 05/18/2023 Laure Ricks PA [facility] INTERVENTIONL RAD PRG CATH PLMT LEFT HEART CATH & ARTS W/INJ & ANGIO IMG S&I N/A 11/09/2022 CORONARY ANGIOGRAPHY; W C,POSSIBLE PCI (WRVU 5.6) performed by Mario Alberto Escobedo MD at [facility] CATH LABS PRG COMBINED RIGHT & LEFT HEART CATH W/INJ L VENTRICULOGRAPHY, IMG S&I N/A 05/12/2023 COMBINED RIGHT & LEFT HEART CATH,INC INJ FOR L VENTRICULOGRAPHY (WRVU 5.99) performed by Antelmo Sharma MD at [facility] CATH LABS PRO AORTOPLAS FOR SUPRAVALV STEN N/A 09/21/2016 @AORTOPLASTY FOR SUPRAVALVULAR STENOSIS (WRVU 29.33) performed by Alirio Hudson MD at [facility] MAIN OR PRO REPLACE AORTIC VALVE (TAVR/FEDERICO)PERC FEMORAL ARTERY APPROACH 05/12/2023 @TRANSCATHETER AORTIC VALVE REPLACEMENT (TAVR), PERCUTANEOUS FEMORAL (WRVU 22.47) performed by Alirio Hudson MD at [facility] CATH LABS PRO REPLACEMENT PROSTHETIC AORTIC VALVE OPEN W CARDIOPULMONARY BYPASS HOMOGRF/STENT N/A 09/21/2016 @REPLACE AORTIC VALVE, OPEN, W\CPB, W\PROSTHETIC VALVE (WRVU 41.32) performed by Alirio Hudson MD at [facility] MAIN OR Social History: Patient lives alone. Home Setup: Pt lives on one level with tub shower and three steps to enter. DME: none used WHITE SIDEWALL TIRE BUFFER Baseline ADL/Mobility: Independent with ADLs and IADLs. 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 Total Minutes, Occupational Therapy: 28 ([id number]) OT Evaluation Code Rationale: Diagnosis & Pertinent Co-Morbidities affecting Plan of Care: see PMHx Occupational Profile & Client History: Brief Expanded Extensive x Assessment of Occupational Performance: 1-3 performance deficits 3-5 performance deficits x 5 + performance deficits Clinical Decision Making: Low Moderate High x Clinical decision making of moderate complexity using standardized patient assessment instrument and measurable assessment of functional outcome. Pager: [phone] TONG MIKE OT 05/20/2023 Occupational Therapy Rehabilitation [...] 0600 and on the weekends please page [phone]. * Rylie Rodriguez MD - 05/19/2023 3:59 [...] and plan. Cynthia Blackburn MD Nephrology Pager: [phone] * Diana Espino - 05/19/2023 1:49 PM EDT Agriculture Instructor Encounter Note Patient Name: Purnima Thacker : [id number] MR#: [id number] Admit Date: 05/08/2023 9:14 AM Hospital Day [...] returning home alone. Anticipated Discharge Disposition (PT): penitentiary facility, swing bed rehabilitation facility Consult Recommendations: [...] as stated. Total Minutes, Physical Therapy: 38 ([phone]) Henrik Navarrete WHITE SIDEWALL TIRE BUFFER Pager: [phone] Physical Therapy Inpatient Rehabilitation Department * Nico [...] 0600 and on the weekends please page [phone]. * Laure Ricks PA - 05/19/2023 7:56 [...] Ricks PA-C Interventional Radiology IR Team Pager [phone] * Consuelo Espinoza RN - 05/18/2023 4:13 PM EDT ANGIO NURSING DATABASE Name: Purnima Thacker Date of : 1955 AGE: 67 y.o. Address: [address] [place] [phone] (home) Mobile: No relevant phone numbers on [...] fraction I35.0 Mild coronary artery disease by [facility] 11/09/2022 I25.10 Heart failure with [...] and plan. Cynthia Blackburn MD Nephrology Pager: [phone] * Khushi Magdalena L, CANDLEMAKER - 05/18/2023 10:51 AM EDT Images from the original note were not included. [facility] [place] [address] [address] STRUCTURAL HEART DISEASE CONSULTATION NOTE PRIMARY CARE [...] stenosis. She is now status post TAVR Xthzi-sy-Gheta with a 23 mm Lai 3 THV 05/12/[address] Sharma. Preliminary findings: Successful right transfemoral TAVR Ulopf-mx-Heffw with a 23 mm Lai 3 THV. [...] perforation. Interval Events: - 05/12 Transferred to [facility] post- TAVR for pressor/inotropic support (Levo, vaso, [...] ejection fraction Mild coronary artery disease by [facility] 11/09/2022 Heart failure with reduced ejection fraction [...] stenosis. She is now status post TAVR Ewvuj-md-Eyqhs with a 23 mm Lai 3 THV [...] Magdalena Puri APRN Structural Heart Team Pager [phone] Team Office Please see addendum by Dr. Sharma for final plan and recommendations Associated attestation - Antelmo Sharma MD - 05/19/2023 10:52 PM EDT I have reviewed Magdalena Puri APRN's above history and I agree with the details as written. The assessment and plan were formulated in discussion with me and I agree with them as documented. Antelmo Sharma MD Pager [phone] * Nico Palacios PA - 05/18/2023 8:13 [...] 0600 and on the weekends please page [phone]. * JudiLoli eid, PT - 05/17/2023 5:27 [...] returning home alone. Anticipated Discharge Disposition (PT): penitentiary facility, swing bed rehabilitation facility Consult Recommendations: [...] plan as stated. Time IN / OUT: 1576-2975 Total Minutes, Physical Therapy: 54 Billing Code: te-sx2, te-f, angely HERNANDEZ PT Pager: [phone] Physical Therapy Inpatient Rehabilitation Department * Cynthia [...] Well controlled. Cynthia Blackburn MD Nephrology Pager: [phone] * Mara Serrano, CANDLEMAKER - 05/17/2023 8:26 AM EDT Cardiac Surgery [...] 0600 and on the weekends please page [phone]. * Guerda Del Valle - 05/16/2023 10:44 AM EDT Nutrition Services Note - Low Nutrition Acuity Purnima Thacker is a 67 y.o. female Reason for intervention: hospital day 9 Nutrition Plan: Continue diet order Encourage good PO Anthony and John noted Added special serve: open containers Monitor weight Patient scheduled for a hospital day 9 nutrition evaluation. Desizing Pad Operator met with pt at bedside. Pt reports that her appetite and PO has much improved since admission. Denies nausea/vomiting or trouble chewing/swallowing. Desizing Pad Operator provided snack list but pt not interested in adding snacks at this time. Her only concern was that she is worried that she will eat too much which will cause too much pressure in her stomach. Desizing Pad Operator assured pt and suggested eating smaller [...] Last Bowel Movement: 05/10/23 Guerda Del Valle Elevator Troubleshooter * Vinod Juárez PA - 05/16/2023 10:19 [...] 0600 and on the weekends please page [phone]. * Michael Jeffers MD - 05/16/2023 8:11 AM EDT Images from the original note were not included. Hypertension-Nephrology Inpatient Follow-up Purnima Thacker [id number] 1955 ID: 67 y.o. old female seen [...] IRONSAT 12 (L) 05/16/2023 SFOLATE >20.0 07/03/2022 [id number] 07/03/2022 Lab Results Component Value Date [...] Dr. Ayoub. Please contact me at phone: [phone] or pager: [phone] with any questions. Michael Jeffers MD Nephrology [...] -Nephrology consulted, labs and renal US ordered -Lyons removed, ambulated around the unit -bilateral pleural [...] cardiogenic shock. #Severe prosthetic AV stenosis s/p Jante TF TAVR #Cardiogenic shock #s/p LM stent [...] 0600 and on the weekends please page [phone]. * Hortencia Cody MD - 05/15/2023 2:07 [...] not included. Hypertension-Nephrology Inpatient Follow-up Purnima Thacker [id number] 1955 ID: 67 y.o. old female seen [...] HGB 7.8 (L) 05/13/2023 SFOLATE >20.0 07/03/2022 [id number] 07/03/2022 Lab Results Component Value Date [...] Dr. Ayoub. Please contact me at phone: [phone] or pager: [phone] with any questions. Michael Jeffers MD Nephrology [...] outlined inthis evaluation. HAVEN BA, PT Pager: [phone] Physical Therapy Inpatient Rehabilitation Department Time IN / OUT: 8547-8888 Total time: Total Minutes, Physical Therapy: 30 [...] 0600 and on the weekends please page [phone]. * Antelmo Sharma MD - 05/14/2023 7:56 AM EDT Images from the original note were not included. [facility] [place] [address] [place] [address] STRUCTURAL HEART DISEASE CONSULTATION NOTE PRIMARY CARE PROVIDER: Magdalena Acosta MD REFERRING PROVIDER: Mario Alberto Chin REASON FOR CONSULTATION: Bioprosthetic aortic valve stenosis HISTORY OF PRESENT ILLNESS: Patient ID: Purinma Thacker is a 67 y.o. 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 She is now status post TAVR Xnijz-sr-Jbqeg with a 23 mm Lai 3 THV 05/12/[address] Sharma. Preliminary findings: Successful right transfemoral TAVR Brwxs-sx-Qmbdi with a 23 mm Lai 3 THV. [...] ejection fraction Mild coronary artery disease by [facility] 11/09/2022 Heart failure with reduced ejection fraction [...] tablet 81 mg 81 mg Oral Daily Lorir Chinchilla PA 81 mg at 05/13/23 0824 [...] stenosis. She is now status post TAVR Mousw-nh-Brisz with a 23 mm Lai 3 THV 05/12/[address] Sharma. Janet TAVR case notable for coronary LAD protective MINNA. Status post TAVR, the patient was transferred to CV for pressor and inotropic support. Pressors weaned overnight 05/12. Cardiac indices by thermodilution remained >3 with continued Milrinone 0.125 mcg/kg/min prior to PAC removal. EKG todayNSR with stable NJ/QRS intervals. Hemoglobin slowly down-trending (8.2-> 7.8-> 7.2). [...] Brody Kaplan APRN Structural Heart Team Pager [phone] Team Office Please see addendum by Dr. [...] exposure. Nephrology consultationtoday. Antelmo Sharma MD Pager [phone] * Antelmo Cardenas RN - 05/14/2023 5:18 AM EDT Pt AOx4, complaining of mild/moderate generalized pain (states her Meloxicam is effective at home) currently refusing prn oxycodone. NAEON, hemodynamically stable on Milrinone, Maps >65, ST in aim564's down to NSR with frequent multifocal PVC's. [...] from the original note were not included. [facility] [place] [address] [place] [address] STRUCTURAL HEART DISEASE PROGRESS NOTE PRIMARY CARE [...] stenosis. She is now status post TAVR Fbxkf-oj-Vmjes with a 23 mm Lai 3 THV 05/12/[address] Sharma. Preliminary findings: Successful right transfemoral TAVR Xzvat-jo-Grdfe with a 23 mm Lai 3 THV. [...] ejection fraction Mild coronary artery disease by [facility] 11/09/2022 Heart failure with reduced ejection fraction [...] stenosis. She is now status post TAVR Qeuxw-ll-Zbixq with a 23 mm Lai 3 THV 05/12/[address] Sharma. Janet TAVR case notable for coronary LAD protective MINNA. Status post TAVR, the patient was transferred to [facility] for pressor and inotropic support. Pressors weaned overnight. Cardiac indices by thermodilution remain greater than 3 with continued Milrinone 0.125 mcg/kg/min. EKG today NSR with stable [place]/QRS intervals. Hemoglobin 7.8 today from 8.5, likely [...] Brody Kaplan APRN Structural Heart Team Pager [phone] Team Office Please see addendum by Dr. [...] DAPT moving forward. Antelmo Sharma MD Pager [phone] * Bonita Miguel PA - 05/13/2023 8:30 AM EDT Cardiac Surgery Progress Note Purnima Thacker is a 67 y.o. 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 PMH of s/p tissue AVR (2017), mixed connective tissue disease HTN, HLD, NICOLAS, diverticulosis, rosacea, essential tremor, and depression. 24h Events: From medical laboratory manager for above procedure Extubated at ~1600 to [...] soft b/l, no evidence of hematoma. Tubes/Lines/Drains: Lyons, RIJ, A-line, Art, PIV Assessment/Plan: 67 y.o. [...] 0600 and on the weekends please page [phone]. * Onelia Schwartz MD - 05/12/2023 1:44 [...] ejection fraction Mild coronary artery disease by [facility] 11/09/2022 Heart failure with reduced ejection fraction [...] FiO2 weaned to 40%. 1105: ABG 7.34/42/73/22 4681-2853: SBT performed and passed on these settings [...] PCP: Magdalena Acosta MD PCP phone number: [phone] Date of Admission: 05/08/2023 ( Hospital Day [...] 144 PHART -- 7.34* 7.34* -- -- URG4AEO -- 30* 30* -- -- PO2ART -- 72* 81* -- -- WLG1PUR -- 16.0* 15.7* -- -- LACTATEVEN 2.4* 2.7* 2.7* 4.8* 2.9* VBG (Venous Blood Gas) Recent Labs 05/12/23 0700 05/12/23 0318 05/12/2310505/11/23193905/11/231446 LACTATEVEN 2.4* 2.7* 2.7* 4.8* 2.9* Mixed Venous Sat Recent Labs 05/12/23 0508 05/12/23 0321 05/12/23 0114 05/12/23 0030 O3NHSA1 30.7 32.7 37.3 25.1 Objective: Vitals Last [...] have questions please contact the health childcare aide that requested your imaging first. Electronically signed by: ALIX RUVALCABA MD, [facility] ([phone]), at 05/10/2023 1:[address] Cardiac for Morphology & Function (Exam End: [...] have questions please contact the health childcare aide that requested your imaging first. Electronically signed by: Cullen Narayanan MD, [facility] ([phone]), at 05/11/2023 4:[address] Angiogram Abdomen [...] have questions please contact the health childcare aide that requested your imaging first. Electronically signed by: Eileen Gomes MD, [facility] ([phone]), at 05/11/2023 2:42 PM XR Chest One [...] have questions please contact the health childcare aide that requested your imaging first. Electronically signed by: Will Rowe MD, [facility] ([phone]), at 05/11/2023 11:57 PM XR Chest One [...] have questions please contact the health childcare aide that requested your imaging first. Electronically signed by: Will Rowe MD, [facility] ([phone]), at 05/12/2023 3:16 AM Assessment & Plan: [...] and inotrope. She is planned for a wervb-rx-owmgy TAVR this morning, which should hopefully improve [...] MD, FACP, FACC Section of Cardiovascular Medicine [facility] Survey Cad Technicianobjective c developer [facility] * Noreen Deutsch RN - 05/12/2023 [...] ejection fraction Mild coronary artery disease by [facility] 11/09/2022 Heart failure with reduced ejection fraction [...] 05/11/2023 4:11 PM EDT Reported off to RETAIL SELLING FLOOR LEADER and pt transferred over in the bed for higher level of care. * Antelmo Sharma MD - 05/11/2023 9:45 AM EDT Images from the original note were not included. [facility] [place] [address] [place] [address] STRUCTURAL HEART DISEASE CONSULTATION NOTE PRIMARY CARE [...] who had been referred for possible TAVR asqln-sy-mdwgj evaluation. Her primary symptoms are of dyspnea [...] otherwise negative. Ms. Thacker is originally from [facility]. 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 She states [...] ejection fraction Mild coronary artery disease by [facility] 11/09/2022 Heart failure with reduced ejection fraction [...] mL 0.5 mL Intramuscular Prior to discharge Kaludia Reid MD potassium chloride ER (Klor-Con M) [...] hour(s)) Lactate, whole blood, send to lab ([facility]) Result Value Ref Range Lactate WB 3.1 (H) 0.5 - 2.2 mmol/L Heparin (unfractionated) Level Result Value Ref Range Heparin UFH Level 0.46 IU/mL Lactate, whole blood, send to lab ([facility]) Result Value Ref Range Lactate WB 1.8 [...] leads Confirmed by MD Harshil, Enrique Bell ([id number]) on 05/10/2023 8:11:46 AM Cardiac Cath 11/09/2022 [...] to decompensating HFrEF, she was transferred to [facility] this afternoon for further management. TAVR CT imaging support for adequate ileofemoral access. Given her acute deterioration today, will planfor RTF TAVR on 05/12/2023. Brody Kaplan APRN Structural Heart Disease Pager [phone] Please see addendum by Dr. Sharma for [...] signed and dated. Antelmo Sharma MD Pager [phone] * Harini Lance MD - 05/11/2023 6:06 AM EDT Images from the original note were not included. Cardiology Progress Note Patient info: Name: Purnima Thacker : 1955 PCP: Magdalena Acosta MD PCP phone number: [phone] Date of Admission: 05/08/2023 ( Hospital Day [...] have questions please contact the health childcare aide that requested your imaging first. 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, 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) Mild coronary artery disease by [facility] 11/09/2022 Hyperlipidemia, unspecified NICOLAS (obstructive sleep apnea) [...] Name: Purnima Thacker : 1955 PCP: Magdalena Aocsta MD PCP phone number: [phone] Date of Admission: 05/08/2023 ( Hospital Day [...] 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) Mild coronary artery disease by [facility] 11/09/2022 Hyperlipidemia, unspecified NICOLAS (obstructive sleep apnea) [...] PCP: Magdalena Acosta MD PCP phone number: [phone] Date of Admission: 05/08/2023 ( Hospital Day [...] Gas) No results found for: PHART, PO2ART, RJH5DIC, POL5MOW Microbiology: Microbiology Results (Last 30 days) No [...] PPx: Diet: Daily Healthy Menu Choices/Cardiac diet ([facility]-Diet) Lines: Peripheral IV Line - Single Lumen [...] 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) Mild coronary artery disease by [facility] 11/09/2022 Hyperlipidemia, unspecified NICOLAS (obstructive sleep apnea) [...] fraction I35.0 Mild coronary artery disease by [facility] 11/09/2022 I25.10 Heart failure with reduced ejection fraction due to heart valve disease I50.20, I38 Cardiogenic shock R57.0 S/P TAVR (transcatheter aortic valve replacement) Z95.2 Past Medical History: Diagnosis Date Anemia Past Surgical History: Procedure Laterality Date PRG CATH PLMT LEFT HEART CATH & ARTS W/INJ & ANGIO IMG S&I N/A 11/09/2022 CORONARY ANGIOGRAPHY; W [facility],POSSIBLE PCI (WRVU 5.6) performed by Mario Alberto Escobedo MD at [facility] CATH LABS PRO AORTOPLAS FOR SUPRAVALV STEN N/A 09/21/2016 @AORTOPLASTY FOR SUPRAVALVULAR STENOSIS (WRVU 29.33) performed by Alirio Hudson MD at [facility] MAIN OR PRO REPLACEMENT PROSTHETIC AORTIC VALVE OPEN W CARDIOPULMONARY BYPASS HOMOGRF/STENT N/A 09/21/2016 @REPLACE AORTIC VALVE, OPEN, W\CPB, W\PROSTHETIC VALVE (WRVU 41.32) performed by Alirio Hudson MD at [facility] MAIN OR Social History and Habits: Social [...] OneTouch Verio test strips Strip USE DAILY Beauty WorksTouch DelRentShare Plus Lancet 33 gauge Misc USE DAILY [...] fraction I35.0 Mild coronary artery disease by [facility] 11/09/2022 I25.10 Heart failure with reduced ejection fraction due to heart valve disease I50.20, I38 Cardiogenic shock R57.0 S/P TAVR (transcatheter aortic valve replacement) Z95.2 Past Medical History: Diagnosis Date Anemia Past Surgical History: Procedure Laterality Date PRG CATH PLID LEFT HEART CATH & ARTS W/INJ & ANGIO IMG S&I N/A 11/09/2022 CORONARY ANGIOGRAPHY; W [facility],POSSIBLE PCI (WRVU 5.6) performed by Mario Alberto Escobedo MD at [facility] CATH LABS PRO AORTOPLAS FOR SUPRAVALV STEN N/A 09/21/2016 @AORTOPLASTY FOR SUPRAVALVULAR STENOSIS (WRVU 29.33) performed by Alirio Hudson MD at [facility] MAIN OR PRO REPLACEMENT PROSTHETIC AORTIC VALVE OPEN W CARDIOPULMONARY BYPASS HOMOGRF/STENT N/A 09/21/2016 @REPLACE AORTIC VALVE, OPEN, W\CPB, W\PROSTHETIC VALVE (WRVU 41.32) performed by Alirio Hudson MD at [facility] MAIN OR Social History and Habits: Social [...] days, which prompted her to present to [employer]. She also endorses some intermittent retrosternal chest pain with exertion.She endorses some dizziness with exertion, but has not gotten faint or passed out. At [employer] she was noted to be afebrile, blood pressure 105/64, HR 120s, satting 95% on 2L NC. Labs from [employer] are below, of note she had [...] 89/59, which prompted the transfer to us. [facility] labs: CBC - Hgb 10.5 CMP - Cr 1.1 BNP 28788 HsTrop 1358 Lactate 1.6 D-dimer 1183 Interval History Patient was admitted to [facility] due to concern on low BP iso [...] Klaudia Reid MD Internal Medicine PGY-1 Pager [phone], M1-S1 Service Associated attestation - Juan Luis Gonzalez MD - 05/08/2023 10:00 PM EDT Cardiology Attending Addendum Active Hospital Problems Diagnosis Symptomatic severe aortic stenosis with low ejection fraction Heart failure with reduced ejection fraction due to heart valve disease Mild coronary artery disease by [facility] 11/09/2022 Hyperlipidemia, unspecified History of aortic valve replacement Resolved Hospital Problems No resolved problems to display. I have interviewed and examined the patient, reviewed the available data, and have discussed my findings, assessment and plan with the patient and the team on admission to S2 service (from [facility] service) today. I agree with Dr. Reid's [...] PCP: Magdalena Acosta MD PCP phone number: [phone] Date of Admission: 05/08/2023 ( Hospital Day 0 days ) Attending:Enrique Chua MD ID: Purnima Thacker is a 67 y.o. female w/ PMH of s/p bioprosthetic AVR in 2016 with recent concern for severe restenosis, HTN, HLD, mixed connective tissue disease, who presents in transfer from [facility] with worsening BONILLA and weight gain [...] four days, which promptedher to present to [employer]. She also endorses some intermittent retrosternal chest pain with exertion. She endorses some dizziness with exertion, but has not gotten faint or passed out. At [facility] she was noted to be afebrile, blood pressure 105/64, HR 120s, satting 95% on 2L NC. Labs from [facility] are below, of note she had [...] 89/59, which prompted the transfer to us. [facility] labs: CBC - Hgb 10.5 CMP - Cr 1.1 BNP 76812 HsTrop 1358 Lactate 1.6 D-dimer 1183 Vasoactive [...] tissue disease, who [facility] BONILLA and weight gain concerning [...] #Routine Diet: Daily Healthy Menu Choices/Cardiac diet ([facility]-Diet) DVT Prophylaxis: heparin gtt GI Prophylaxis: none [...] to the planned procedure. Hand Hygiene: The rack washer did perform hand hygiene prior to arterial [...] Successful arterial line placement. Crispin Timmons MD Healthcare Insurance Sales Agent Associated attestation - Onelia Schwartz MD - [...] (flow was non-pulsatile) and appearance of blood. Lyons-Marily catheter was placed and locked at 55 [...] information for follow-up [facility], [place] [address] [place] [address] Cardiac Rehab, [address] [place] [address] [facility], [place] [address] [place] [address] Transportation: family or friend will provide *Brother [...] Type: *No Product type* / Secondary Insurance: [employer] [place] Prescription Coverage: Yes This plan was formulated with input from patient, family (please identify family/friend involved ifapplicable) and team. All are in agreement with plan. Aliza Martino MSN-Ed, RN ACM internet sourcer Office of Care Management Pager #[phone] * Plan of Care - Favian Mckeon [...] Chaudhary RN - 05/21/2023 4:46 PM EDTSumcaydeny: [facility] referral OFFICE OF CARE MANAGEMENT [...] Type: *No Product type* / Secondary Insurance: [employer] [facility] [place] Last Physical Therapy Recommendation: (Home with assist from Brother; Friend arriving Tues) with walker, front wheeled Last Occupational Therapy Recommendation: swing bed rehabilitation facility, penitentiary facility (vs home with support for IADLs) [...] geographic area. They have requested referrals to: [facility] [address] [place] [address] [facility] @ [facility] [place], [place] Note routed to a Hook And Eye Machine Operator who will communicate referrals to facilities and provide any required information. Transportation: family or friend will provide *Brother Raymond on Tuesday 05/22 at 1000 Barriers to discharge: Does not have home 22/02 assist available until tomorrow Tuesday 05/22 Plan going forward: Discharge home into the 22/02 home care of brother Raymond with [facility] and [facility] PT/OT services on Tuesday 05/22 [...] Attending: All Staff: Staff Role Juanita [employer] Debeader Laure Ricks PA Physician Director Internal Communications Magdalena Rodriguez RN Radiology Nurse Consuelo Espinoza [...] Type: *No Product type* / Secondary Insurance: [facility] [place] Last Physical Therapy Recommendation: penitentiary facility, swing bed rehabilitation facility with to be determined Last Occupational Therapy Recommendation: with Plan for discharge is: [facility] Facility / Swing Outpatient Agency/Support Group Needs: None Agency Referrals: Based on discussions with the multi-disciplinary healthcare team, the patient would benefit from SNF / Swing level of care at discharge. I have met with the patient to: discuss discharge planning needs. provide the [facility], Office of Care Management letter from the Backend Java Developer pertaining to rehab referrals. provide a letter describing our affiliations within the [facility] and educate about their right to choose where referrals are sent. provide the [facility] Star Quality Rating handout. review the different levels of rehab including SNF, swing, and acute. provide a list of facilities within their preferred geographic area. request that they provide at least three choices for referral. They have requested referrals to: [facility] [address] [place] [address] [facility] ([facility]) [address] [place] [address] (Accepts pts only after exhausting all other local SNF options) [facility] (Swing) ([facility]) [address] [place] [address] PHONE: [phone] FAX: [phone] [facility] (Swing) ([facility]) [address] [place] [address] PHONE: [phone] FAX: [phone] Note routed to a Hook And Eye Machine Operator who will communicate referrals to facilities and [...] Crenshaw RN - 05/17/2023 10:25 AM EDT [facility] CARDIAC REHABILITATION Purnimakary Thacker was seen today regarding participation in the outpatient Phase 2 Cardiac Rehabilitation at [facility]. The patient agrees to a referral [...] from the original note were not included. [facility] NEPHROLOGY/HYPERTENSION CONSULT NOTE PATIENT: Purnima Thacker [...] in her course. She ultimately underwent a uyyre-jn-libnu procedure on and tolerated it well (see [...] 1423 05/12/23 1105 PHART 7.39 7.37 7.34* DYH4BRI 33* 36 42 PO2ART 101 102 73* AAD1PIX 19.5* 20.4 22.1 LACTATEVEN 1.5 1.8 2.8* XVT8GXW 40 40 40 PFRATIOART2 252 255 182 VBG (Venous Blood Gas) Recent Labs 05/12/23 1557 05/12/23 1423 05/12/23 1105 LACTATEVEN 1.5 1.8 2.8* Mixed Venous Sat Recent Labs 05/12/23 1425 05/12/23 0508 05/12/23 0321 G3HCDV7 59.9 30.7 32.7 LFT's: Recent Labs 05/14/23 0110 05/13/23 0115 05/12/23 0600 BILITOT 0.4 0.5 0.9 BILIDIR -- 0.3 -- ALBUMIN 3.6 3.0* 3.5 ALKPHOS 86 85 100 ALT 437* 903* 1,174* AST 319* 792* 1,435* No results found for: UPROTCREAT No results found for: TPROTEINPEP, ALBELECT No results found for: MICROALBUR, GOZX30MCQ No results found for: HA1C Lab Results Component Value Date CALCIUM 8.5 05/14/2023 PHOS 4.7 (H) 05/08/2023 No results found for: 25OHVITD MICROBIOLOGY: ProcedureComponentValueUnitsDate/TimeUrine culture [[id number]]Collected: 05/11/231921Lab Status: Final resultSpecimen: Clean Catch UrineUpdated: [...] consulted for assessment if this patient needs SOCIAL MEDIA MARKETER. Atthis time, we can likely hold off on SOCIAL MEDIA MARKETER. Her volume status appears sufficient and her metabolic kanwal angements with mild acidosis is not too profound. Patient does not have significant uremic symptoms. We can hold off for today, but the patient is a high risk candidate for needing SOCIAL MEDIA MARKETER in future daysespecially if her Cr curve trends the direction it is for the next several days. S/p Dsota-on-Klxsq TF TAVR: Management per cardiology. On milrinone gtt. PLAN: - Please obtain following diagnostics: renal US, urinalysis, urine prot/Cr ratio, urine albumin/Cr ratio, CK, uric acid, serum osmol, daily VBGs - No acute indications for SOCIAL MEDIA MARKETER/dialysis. We will keep close eye on Cr trend, volume status, and metabolics to ensure patient still does not need SOCIAL MEDIA MARKETER as she ensues intrinsic renal recovery - [...] M.H.Katherine., M.A. PGY-V Nephrology-Hypertension Fellow Page # [phone] [facility] [facility] [address] 2nd floor, Telemetry Rn [address] [place] [address] * Care Management - Mario Alberto Olmos [...] Type: *No Product type* / Secondary Insurance: [facility] [facility] Plan for discharge is: Home w/o Services [...] for a TAVR at 730. Returned to [facility] at 0945. Was intubated in the medical laboratory manager due to agitation. Maintained bedrest for 5 [...] Operative Note Patient Name: Purnima Thacker : [id number] MR#: [id number] Case Date: 05/12/2023 Surgeon: Surgeon(s) and Role: [...] procedure Note: Patient Name: Purnima Thacker : [id number] MR#: [id number] Case Date: 05/12/2023 Operators Surgeon: Surgeon(s) and [...] main with 4.0 x 30 mm Resolute Mohawk Drug Eluting Stent Perclose x1 + Angio-seal 8 Fr x1, RFA Manual pressure, LFA Manual pressure, LFV Endotracheal intubation (performed by cardiac anesthesia) Preliminary findings: Successful right transfemoral TAVR Txfxc-jb-Isktg with a 23 mm Lai 3 THV. [...] MD, M.Sc. Structural Heart Disease Fellow Pager :[phone] Antelmo Sharma MD Pager [phone] * Op Note - Alirio Hudson MD - 05/12/2023 7:37 AM EDT Preop Diagnosis: Severe aortic stenosis, symptomatic. Postop Diagnosis: Same. Procedure: Transfemoral TAVR procedure with 23mm valve. Surgeon: Alirio Hudson M.D. Lay Out Worker: Danny CULP Procedure: The patient was taken to the medical laboratory manager. The patient had monitored anesthesia care. 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 [facility] [place] [address] [place] [address] STRUCTURAL HEART DISEASE CONSULTATION NOTE PRIMARY CARE [...] who had been referred for possible TAVR kuxxt-ji-bbgxp evaluation. Her primary symptoms are of dyspnea [...] otherwise negative. Ms. Thacker is originally from [place]. 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 PROBLEM LIST: Patient Active Problem List Diagnosis Symptomatic severe aortic stenosis with low ejection fraction Mild coronary artery disease by [facility] 11/09/2022 Heart failure with reduced ejection fraction [...] hour(s)) Lactate, whole blood, send to lab ([facility]) Result Value Ref Range Lactate WB 1.8 [...] leads Confirmed by MD Harshil, Enrique Bell ([id number]) on 05/10/2023 8:11:46 AM Assessment and Plan: [...] Antelmo Sharma MD Structural Heart Disease Pager [phone] * Plan of Care - Sarahi Nice RN - 05/10/2023 3:55 AM MITZITSshalini: VALDO Note and Care Plan Sarahi Nice RN assumed care of pt at time of their arrival to room 362 from [facility]. Pt voices shortness of breath at time [...] listening utilized Taken 05/08/20231999 by Alivia Kauffman, cooker soda/Support System Care: self-care encouraged support provided Problem: [...] Manage Obstructive Sleep Apnea Flowsheets (Taken 05/09/2023 4391) NPPV/CPAP Maintenance: home PAP equipment/settings used * Initial Assessments - Alie Bradshaw RN - 05/09/2023 3:42 PM EDT Office of Care Management Initial Assessment Alie Bradshaw RN reviewed record and discussed patient with Care Team. Source of Information: Team, bedside nurse, medical record, and Patient Introduced self/reviewed role; services accepted. Admitted From: Transfer from another hospital Location: admitted from [facility] [employer] Reason for Hospitalization: Critical aortic stenosis, causing symptoms Past medical History: Past Medical History: Diagnosis Date Anemia Hospitalizations Within the Past 30 Days: no previous admission in last 30 days Current Decision-Making Capacity: Self If AD's have not been completed the following surrogate would be surrogate decision maker per [place] surrogate decision making law. (Only good for 180 days) Any patient receiving care in [place] must abide by [place] law. The hierarchy for surrogate decision making [...] (i) The agent with financial power of commercial real estate attorney or a conservator appointed in accordance [...] DME: none Home Address confirmed as: [address] [place] [address] Social & Family Supports: All names listed [...] Type: *No Product type* / Secondary Insurance: [employer] ONLY if patient has Medicare A&B - Does this patient have secondary insurance?: Yes ; Prescription Coverage: Yes Preferred Pharmacy: updated to [facility] [place] Status: Patient is a : No Primary Care Provider confirmed: Magdalena Acosta MD [phone] Patient/Caregiver Goals of Treatment: Potential Needs for [...] assist with transition of care planning. Alie Bradhsaw RN, Pager-[phone] * Plan of Care - Emily Lucero RN - 05/08/2023 2:54 PM EDT OUTCOME EVALUATION NOTE: OUTCOME SUMMARY: Pt arrived from [employer] [facility]. A&O, no c/o pain or SOB. [...] PM EDT Office Visit Dermatology at [address] [place] [address] Marek Bonilla MD [address] [place] [address] 06/05/2024 11:30 AM EST [place] [address] Magdalena Peralta MD [facility] [facility] [place] [address] Scheduled Referrals Name Type Priority Associated Diagnoses [...] Heart Cath W/Inj L Ventriculography, Img S&I (16943) 05/12/2023 7:37 AM EDT Aortic valve stenosis, [...] DOPP (07/08/2023 12:15 PM EST) EF 20 [employer] Anatomical Region Laterality Modality Cardiac Other 07/08/2023 10:3 1 AM EST Narrative 07/08/2023 12:26 PM EST 1 [place] [address] ? Echocardiogram Report Name: PURNIMA THACKER ?Study Date: 07/08/2023 10:31 AMBP: 118/60 mmHg ? Patient Location: 4A : 1955 ? Height: 155 cm ? Account: [id number] Age: 67 yrs ? Weight: 74 kg Gender: Female ?BSA: 1.7 m2 Ordering Physician: ALIRIO HUDSON Referring Physician: VINOD JUÁREZ Performed By: Felicia Norris RDCS Reason For Study: S/P TAVR Exam Location: [facility]. Interpretation Summary Left ventricular systolic function [...] no significant change (post-procedure). Procedure Limited - 24563. Doppler - 37768. Color Doppler - 49299. Satisfactory quality. This study is limited because [...] Note Lee Kincaid MD - 07/08/2023 1 [place] [address] Echocardiogram Report Name: PURNIMA THACKER Study Date: 0:31 AMBP: 118/60 mmHg Patient Location: : 1955 Height: 155 cm Account: [id number] Age: 67 yrs Weight: 74 kg Gender: Female BSA: 1.7 m2 Ordering Physician: ALIRIO HUDSON Referring Physician: VINOD JUÁREZ Performed By: Felicia Norris RDCS Reason For Study: S/P TAVR Exam Location: [facility]. Interpretation Summary Left ventricular systolic function [...] is nosignificant change (post-procedure). Procedure Limited - 03674. Doppler - 03061. Color Doppler - 61392. Satisfactoryquality. This study is limited because of [...] Glucose Lvl 93 65 - 199 mg/dL [facility] Comment:Diabetes: >=200 mg/d L plus symptoms BUN 19(H) 8 - 18 mg/dL [facility] Creatinine 0.81 0.70 - 1.20 mg/dL [facility] Sodium 142 135 - 145 mmol/L [facility] Potassium 3.8 3.5 - 5.0 mmol/L [facility] Comment: Please note: ??Patients with WBC >100,000 may have falsely elevated Potassium levels. ??For accurate Potassium quantification in these patients send serum separator tube (gold top) for subsequent determinations. ??Contact the Clinical Chemistry Laboratory if there are any questions. Chloride 104 98 - 107 mmol/L [facility] CO2 26 22 - 31 mmol/L [facility] Anion Gap 12 5 - 15 mmol/L [facility] Calcium 10.2 8.5 - 10.5 mg/dL [facility] Total Protein 7.4 6.1 - 8.0 g/dL [facility] Albumin 4.1 3.2 - 5.2 g/dL [facility] AST 24 0 - 30 unit/L [facility] ALT 12 0 - 30 unit/L [facility] Alk Phos 93 35 - 105 unit/L [facility] Total Bilirubin 0.3 0.2 - 1.3 mg/dL [facility] Estimated GFR 80 >=60 mL/min/1. 73 m?? [facility] Comment: This patient's estimated GFR [...] Lab Alirio Hudson MD CHEMISTRY ORDERABLE S [facility] [place] [address] * (ABNORMAL) Basic Metabolic Panel (non-fasting) (05/22/2023 3:57 AM EDT) Glucose Lvl 88 65 - 199 mg/dL [facility] Comment:Diabetes: >=200 mg/d L plus symptoms BUN 21(H) 8 - 18 mg/dL [facility] Creatinine 0.69(L) 0.70 - 1.20 mg/dL [facility] Sodium 136 135 - 145 mmol/L [facility] Potassium 3.6 3.5 - 5.0 mmol/L [facility] Comment: Please note: ??Patients with WBC >100,000 may have falsely elevated Potassium levels. ??For accurate Potassium quantification in these patients send serum separator tube (gold top) for subsequent determinations. ??Contact the Clinical Chemistry Laboratory if there are any questions. Chloride 102 98 - 107 mmol/L [facility] CO2 23 22 - 31 mmol/L [facility] Anion Gap 11 5 - 15 mmol/L [facility] Calcium 8.6 8.5 - 10.5 mg/dL [facility] Estimated GFR 95 >=60 mL/min/1. 73 m?? [facility] Comment: This patient's estimated GFR [...] Agency Comment Spec In Lab Mara Serrano CANDLEMAKER CHEMISTRY ORDERABL ES [facility] [place] [address] * (ABNORMAL) Basic Metabolic Panel (non-fasting) (05/21/2023 5:06 AM EDT) Glucose Lvl 87 65 - 199 mg/dL [facility] Comment:Diabetes: >=200 mg/d L plus symptoms BUN 25(H) 8 - 18 mg/dL [facility] Creatinine 0.84 0.70 - 1.20 mg/dL [facility] Sodium 136 135 - 145 mmol/L [facility] Potassium 3.6 3.5 - 5.0 mmol/L [facility] Comment: Please note: ??Patients with WBC >100,000 may have falsely elevated Potassium levels. ??For accurate Potassium quantification in these patients send serum separator tube (gold top) for subsequent determinations. ??Contact the Clinical Chemistry Laboratory if there are any questions. Chloride 102 98 - 107 mmol/L [facility] CO2 26 22 - 31 mmol/L [facility] Anion Gap 8 5 - 15 mmol/L [facility] Calcium 8.9 8.5 - 10.5 mg/dL [facility] Estimated GFR 76 >=60 mL/min/1. 73 m?? [facility] Comment: This patient's estimated GFR [...] Agency Comment Spec In Lab Mara Serrano CANDLEMAKER CHEMISTRY ORDERABL ES [facility] [place] [address] * Lavender Tube HOLD (05/20/2023 2:52 AM EDT) Lavender Hold Sample in lab. [facility] Blood Venous Draw / Unknown 05/20/2023 2:52 AM EDT 05/20/2023 3:04 AM EDT Mara Serrano CANDLEMAKER HEMATOLOGY ORDERAB LES [facility] [place] [address] * (ABNORMAL) Basic Metabolic Panel (non-fasting) (05/20/2023 2:52 AM EDT) [facility] Glucose Lvl 152 65 - 199 mg/dL [facility] Comment:Diabetes: >=200 mg/d L plus symptoms BUN 33(H) 8 - 18 mg/dL [facility] Creatinine 0.82 0.70 - 1.20 mg/dL [facility] Sodium 137 135 - 145 mmol/L [facility] Potassium 3.7 3.5 - 5.0 mmol/L [facility] Comment: Please note: ??Patients with WBC >100,000 may have falsely elevated Potassium levels. ??For accurate Potassium quantification in these patients send serum separator tube (gold top) for subsequent determinations. ??Contact the Clinical Chemistry Laboratory if there are any questions. Chloride 99 98 - 107 mmol/L [facility] CO2 22 22 - 31 mmol/L [facility] Anion Gap 16(H) 5 - 15 mmol/L [facility] Calcium 9.0 8.5 - 10.5 mg/dL [facility] Estimated GFR 78 >=60 mL/min/1. 73 m?? [facility] Comment: This patient's estimated GFR [...] Agency Comment Spec In Lab Mara Thomasfield CANDLEMAKER CHEMISTRY ORDERABL ES Performing Organization Address [facility] de Phone Number [facility] [place] [address] * (ABNORMAL) Potassium (05/20/2023 2:52 AM EDT) [facility] Potassium 3.4(L) 3.5 - 5.0 mmol/L [facility] Comment: Please note: ??Patients with WBC >100,000 may have falsely elevated Potassium levels. ??For accurate Potassium quantification in these patients send serum separator tube (gold top) for subsequent determinations. ??Contact the Clinical Chemistry Laboratory if there are any questions. Blood 05/20/2023 2:52 AM EDT 05/20/2023 3:03 AM EDT Narrative Resulting Agency Comment Spec In Lab Mara Thomasfield CANDLEMAKER CHEMISTRY ORDERABL ES Performing Organization Address [facility] Co de Phone Number [facility] [place] [address] * XR Chest PA & Lateral (Generic) [...] have questions please contact the health childcare aide that requested your imaging first. ? Electronically signed by: Chyna Johnson MD, [facility] ??([phone]), at 05/19/2023 2:19 PM Narrative 05/19/2023 2:19 [...] who have questions please contactthe health childcare aide that requested your imaging first. Electronically signed by: Chyna Johnson MD, [facility]([phone]), at 05/19/2023 2:19 PM Alirio Hudson MD IMG DX ORDERABLES * (ABNORMAL) Basic Metabolic Panel (non-fasting) (05/19/2023 5:49 AM EDT) Glucose Lvl 93 65 - 199 mg/dL [facility] Comment:Diabetes: >=200 mg/d L plus symptoms BUN 45(H) 8 - 18 mg/dL [facility] Creatinine 1.02 0.70 - 1.20 mg/dL [facility] Sodium 138 135 - 145 mmol/L [facility] Potassium 3.9 3.5 - 5.0 mmol/L [facility] Comment: Please note: ??Patients with WBC >100,000 may have falsely elevated Potassium levels. ??For accurate Potassium quantification in these patients send serum separator tube (gold top) for subsequent determinations. ??Contact the Clinical Chemistry Laboratory if there are any questions. Chloride 102 98 - 107 mmol/L [facility] CO2 26 22 - 31 mmol/L [facility] Anion Gap 10 5 - 15 mmol/L [facility] Calcium 9.7 8.5 - 10.5 mg/dL [facility] Estimated GFR 60 >=60 mL/min/1. 73 m?? [facility] Comment: This patient's estimated GFR [...] Agency Comment Spec In Lab Mara Serrano CANDLEMAKER CHEMISTRY ORDERABL ES [facility] [place] [address] * IR Chest Tube Placement Right (05/18/2023 [...] Glucose Lvl 95 65 - 199 mg/dL [facility] Comment:Diabetes: >=200 mg/d L plus symptoms BUN 71(H) 8 - 18 mg/dL [facility] Comment:result rechecked-JSJ Creatinine 1.64(H) 0.70 - 1.20 mg/dL [facility] Comment:result rechecked-JSJ Sodium 137 135 - 145 mmol/L [facility] Potassium 3.7 3.5 - 5.0 mmol/L [facility] Comment: Please note: ??Patients with WBC >100,000 may have falsely elevated Potassium levels. ??For accurate Potassium quantification in these patients send serum separator tube (gold top) for subsequent determinations. ??Contact the Clinical Chemistry Laboratory if there are any questions. Chloride 100 98 - 107 mmol/L [facility] CO2 24 22 - 31 mmol/L [facility] Anion Gap 13 5 - 15 mmol/L [facility] Calcium 9.7 8.5 - 10.5 mg/dL [facility] Estimated GFR 34(L) >=60 mL/min/1. 73 m?? [facility] Comment: This patient's estimated GFR [...] Agency Comment Spec In Lab Mara Serrano CANDLEMAKER CHEMISTRY ORDERABL ES [facility] [place] [address] * XR Chest PA & Lateral (Generic) [...] have questions please contact the health childcare aide that requested your imaging first. ? Narrative [...] who have questions please contactthe health childcare aide that requested your imaging first. Electronically signed by: Ghassan Reyes MD, [facility]([phone]), at 05/17/2023 11:46 AM Alirio Hudson MD IMG DX ORDERABLES * (ABNORMAL) Comprehensive metabolic panel (non-fasting) (05/17/2023 4:35 AM EDT) Glucose Lvl 89 65 - 199 mg/dL [facility] Comment:Diabetes: >=200 mg/d L plus symptoms BUN 97(H) 8 - 18 mg/dL [facility] Creatinine 2.97(H) 0.70 - 1.20 mg/dL [facility] Comment:result rechecked-[facility] Sodium 135 135 - 145 mmol/L [facility] Potassium 4.1 3.5 - 5.0 mmol/L [facility] Comment: Please note: ??Patients with WBC >100,000 may have falsely elevated Potassium levels. ??For accurate Potassium quantification in these patients send serum separator tube (gold top) for subsequent determinations. ??Contact the Clinical Chemistry Laboratory if there are any questions. Chloride 97(L) 98 - 107 mmol/L [facility] CO2 22 22 - 31 mmol/L [facility] Anion Gap 16(H) 5 - 15 mmol/L [facility] Calcium 9.6 8.5 - 10.5 mg/dL [facility] Total Protein 6.5 6.1 - 8.0 g/dL [facility] Albumin 3.7 3.2 - 5.2 g/dL [facility] AST 58(H) 0 - 30 unit/L [facility] ALT 66(H) 0 - 30 unit/L [facility] Alk Phos 86 35 - 105 unit/L [facility] Total Bilirubin 0.6 0.2 - 1.3 mg/dL [facility] Estimated GFR 17(L) >=60 mL/min/1. 73 m?? [facility] Comment: This patient's estimated GFR [...] Lab Alirio Hudson MD CHEMISTRY ORDERABLE S [facility] [place] [address] * Potassium (05/16/2023 11:15 PM EDT) Potassium 3.7 3.5 - 5.0 mmol/L [facility] Comment: Please note: ??Patients with [...] MD CHEMISTRY ORDERABLE S Performing Organization Address [facility] Co de Phone Number [facility] [place] [address] * Magnesium (05/16/2023 5:22 PM EDT) Magnesium 0.96 0.69 - 1.07 mmol/L [facility] Blood 05/16/2023 5:22 PM EDT 05/16/2023 5:27 PM EDT Narrative Resulting Agency Comment Spec In Lab Alirio Hudson MD CHEMISTRY ORDERABLE S Performing Organization Address [facility] Co de Phone Number [facility] [place] [address] * (ABNORMAL) Basic Metabolic Panel (non-fasting) (05/16/2023 5:22 PM EDT) Glucose Lvl 106 65 - 199 mg/dL [facility] Comment:Diabetes: >=200 mg/d L plus symptoms BUN 103(H) 8 - 18 mg/dL [facility] Creatinine 3.91(H) 0.70 - 1.20 mg/dL [facility] Comment:result rechecked-imm Sodium 132(L) 135 - 145 mmol/L [facility] Potassium 3.6 3.5 - 5.0 mmol/L [facility] Comment: Please note: ??Patients with WBC >100,000 may have falsely elevated Potassium levels. ??For accurate Potassium quantification in these patients send serum separator tube (gold top) for subsequent determinations. ??Contact the Clinical Chemistry Laboratory if there are any questions. Chloride 92(L) 98 - 107 mmol/L [facility] CO2 22 22 - 31 mmol/L [facility] Anion Gap 18(H) 5 - 15 mmol/L [facility] Calcium 9.7 8.5 - 10.5 mg/dL [facility] Estimated GFR 12(L) >=60 mL/min/1. 73 m?? [facility] Comment: This patient's estimated GFR [...] Lab Alirio Hudson MD CHEMISTRY ORDERABLE S [facility] [place] [address] * (ABNORMAL) Potassium (05/16/2023 11:43 AM EDT) Potassium 3.3(L) 3.5 - 5.0 mmol/L [facility] Comment: Please note: ??Patients with [...] Lab Alirio Hudson MD CHEMISTRY ORDERABLE S [facility] [place] [address] * (ABNORMAL) Ferritin (05/16/2023 4:41 AM EDT) Ferritin 1,813(H) 30 - 400 ng/mL [facility] Comment: Pediatric reference ranges not verified at [facility], interpret with caution. Reference ranges for females greater than 50 years of age approach values for men, i.e., 30-400 ng/mL. Blood 05/16/2023 4:41 AM EDT 05/16/2023 4:54 AM EDT Narrative Resulting Agency Comment Spec In Lab Kristopher Ayoub MD CHEMISTRY ORDERABLES Performing Organization Address City/[facility]/ZIP Co de Phone Number [facility] [place] [address] * (ABNORMAL) PTH (05/16/2023 4:41 AM EDT) [facility] PTH 120(H) 15 - 65 pg/mL [facility] Blood 05/16/2023 4:41 AM EDT 05/16/2023 4:54 AM EDT Narrative Resulting Agency Comment Spec In Lab Kristopher Ayoub MD CHEMISTRY ORDERABLES Performing Organization Address City/[facility]/ZIP Co de Phone Number [facility] [place] [address] * Vitamin D, 25-Hydroxy (05/16/2023 4:41 AM EDT) 25-OH Vit D Total 33 21 - 100 ng/mL [facility] 25-OH Vit D Interp Sufficient [facility] Blood 05/16/2023 4:41 AM EDT 05/16/2023 4:54 AM EDT Narrative Resulting Agency Comment Spec In Lab Kristopher Ayoub MD CHEMISTRY ORDERABLES [facility] [place] [address] * (ABNORMAL) Blood Gas Venous ([facility]) (05/16/2023 4:22 AM EDT) pH Mike 7.41 7.32 - 7.42 [facility] pCO2 Mike 32(L) 41 - 51 mmHg [facility] pO2 Mike 73(H) 25 - 40 mmHg [facility] HCO3 Mike 19.6 mmol/L [facility] BE Mike -5.1 mmol/L [facility] Hgb Blood Gas 9.7(L) 11.7 - 15.5 g/dL [facility] O2HB Mike 92.8 % [facility] COHB Mike 0.1 % [facility] Comment: Nonsmokers: 0.5-1.5% COHB Smokers: Variable, but usually less than 10% Toxic: 20-30% COHB Lethal: Greater than 60% COHB METHB Mike 0.3 <=1.5 % [facility] Na Whole Blood 130(L) 135 - 145 mmol/L [facility] K Whole Blood 3.7 3.5 - 5.0 mmol/L [facility] Comment: Please note: Patients with WBC >100,000 may have falsely elevated Potassium levels. Contact the Clinical Chemistry Laboratory if there are any questions. ICa Whole Blood 1.15 1.15 - 1.33 mmol/L [facility] Comment: Note: ??Total bilirubin higher than 20 mg/dL may lead to falsely low ionized calcium. CL Whole Blood 95(L) 98 - 107 mmol/L [facility] Gluc Whole Bld 82 65 - 199 mg/dL [facility] Comment:Diabetes: >=200 mg/d L plus symptoms Lactate WB 1.1 0.5 - 2.2 mmol/L [facility] BGas Source Venous [facility] Blood Venous Draw / Unknown 05/16/2023 4:22 AM EDT 05/16/2023 4:31 AM EDT Narrative Resulting Agency Comment Spec In Lab Bonita TOBAR CHEMISTRY ORDERABLES [facility] [place] [address] * (ABNORMAL) Differential, Automated (05/16/2023 4:20 AM EDT) Neutrophils % 84.1 % [facility] Neutr Abs (ANC) 6.22(H) 1.70 - 6.10 x10(3)/mc L [facility] Lymphocytes % 5.8 % [facility] Lymphocytes Abs 0.4(L) 0.9 - 3.2 x10(3)/ L [facility] Monocytes % 8.8 % [facility] Monocyte Abs 0.6 0.3 - 0.9 x10(3)/ L [facility] Eosinophils % 0.4 % [facility] Eosinophils Abs 0.0 0.0 - 0.4 x10(3)/mc L [facility] Basophils % 0.0 % [facility] Basophils Abs 0.0 0.0 - 0.1 x10(3)/mc L [facility] Immature Gran % 0.90 % [facility] Comment: Immature granulocytes(IG's)percentage and absolute count will include metamyelocytes, myelocytes, and promyelocytes. Blood smears from CBCs yielding IG's will be scanned manually for concordance. If this scan disagrees with the automated IG or if promyelocytes are noted, a manual differential will be performed. Amanda Gran Abs 0.07(H) 0.00 - 0.04 x10(3)/mc L [facility] Blood 05/16/2023 4:20 AM EDT 05/16/2023 4:29 AM EDT Narrative Resulting Agency Comment Spec In Lab James Agustin MD HEMATOLOGY ORDER JODIE [facility] [place] [address] * (ABNORMAL) Hemogram (05/16/2023 4:20 AM EDT) WBC 7.4 4.0 - 9.5 x10(3)/[facility] RBC 2.40(L) 4.00 - 5.21 x10(6)/[facility] Hemoglobin 7.8(L) 11.7 - 15.5 g/dL [facility] Hematocrit 22.5(L) 35.7 - 45.8 % [facility] MCV 93.8 82.6 - 94.4 fL [facility] MCH 32.5(H) 27.1 - 32.0 pg [facility] MCHC 34.7 31.7 - 35.0 g/dL [facility] Platelets 120(L) 145 - 357 x10(3)/[facility] RDWSD 42.9 37.0 - 46.0 [facility] RDWCV 12.9 11.5 - 14.1 % [facility] MPV 11.3 7.6 - 12.9 fL [facility] nRBC % Auto 0.7 % [facility] nRBC Abs Auto 0.050(H) 0.000 - 0.000 x10(3)/[facility] Blood 05/16/2023 4:20 AM EDT 05/16/2023 4:29 AM EDT Narrative Resulting Agency Comment Spec In Lab James Agustin MD HEMATOLOGY ORDER JODIE [facility] [place] [address] * (ABNORMAL) Basic Metabolic Panel (non-fasting) (05/16/2023 4:20 AM EDT) Glucose Lvl 89 65 - 199 mg/dL [facility] Comment:Diabetes: >=200 mg/d L plus symptoms BUN 108(H) 8 - 18 mg/dL [facility] Creatinine 4.74(H) 0.70 - 1.20 mg/dL [facility] Comment:result rechecked-OLIVA Sodium 132(L) 135 - 145 mmol/L [facility] Potassium 3.9 3.5 - 5.0 mmol/L [facility] Comment: Please note: ??Patients with WBC >100,000 may have falsely elevated Potassium levels. ??For accurate Potassium quantification in these patients send serum separator tube (gold top) for subsequent determinations. ??Contact the Clinical Chemistry Laboratory if there are any questions. Chloride 95(L) 98 - 107 mmol/L [facility] CO2 18(L) 22 - 31 mmol/L [facility] Anion Gap 19(H) 5 - 15 mmol/L [facility] Calcium 9.2 8.5 - 10.5 mg/dL [facility] Estimated GFR 10(L) >=60 mL/min/1. 73 m?? [facility] Comment: This patient's estimated GFR [...] MD CHEMISTRY ORDERABLE S Performing Organization Address [facility]/ZIP Co de Phone Number [facility] [place] [address] * (ABNORMAL) Iron and TIBC (05/16/2023 4:20 AM EDT) Pathologist [facility] Iron 31 30 - 150 mcg/dL [facility] TIBC 259 250 - 450 mcg/dL [facility] Iron Saturation 12(L) 20 - 50 % [facility] Blood 05/16/2023 4:20 AM EDT 05/16/2023 4:29 AM EDT Narrative Resulting Agency Comment Spec In Lab Kristopher Ayoub MD CHEMISTRY ORDERABLES Performing Organization Address [facility]/ZIP Co de Phone Number [facility] [place] [address] * (ABNORMAL) Basic Metabolic Panel (non-fasting) (05/15/2023 12:50 AM EDT) [facility] Glucose Lvl 101 65 - 199 mg/dL [facility] Comment:Diabetes: >=200 mg/d L plus symptoms BUN 109(H) 8 - 18 mg/dL [facility] Creatinine 5.62(H) 0.70 - 1.20 mg/dL [facility] Comment:result rechecked-KS Sodium 131(L) 135 - 145 mmol/L [facility] Comment:result rechecked-KS Potassium 3.7 3.5 - 5.0 mmol/L [facility] Comment: result rechecked-KS Please note: ??Patients with WBC >100,000 may have falsely elevated Potassium levels. ??For accurate Potassium quantification in these patients send serum separator tube (gold top) for subsequent determinations. ??Contact the Clinical Chemistry Laboratory if there are any questions. Chloride 92(L) 98 - 107 mmol/L [facility] Comment:result rechecked-KS CO2 18(L) 22 - 31 mmol/L [facility] Comment:result rechecked-KS Anion Gap 21(H) 5 - 15 mmol/L [facility] Calcium 8.9 8.5 - 10.5 mg/dL [facility] Estimated GFR 8(L) >=60 mL/min/1. 73 m?? [facility] Comment: This patient's estimated GFR [...] Lab Alirio Hudson MD CHEMISTRY ORDERABLE S [facility] [place] [address] * (ABNORMAL) Hemogram (05/15/2023 12:50 AM EDT) WBC 9.1 4.0 - 9.5 x10(3)/[facility] RBC 2.19(L) 4.00 - 5.21 x10(6)/[facility] Hemoglobin 7.2(L) 11.7 - 15.5 g/dL [facility] Hematocrit 20.6(L) 35.7 - 45.8 % [facility] MCV 94.1 82.6 - 94.4 fL [facility] MCH 32.9(H) 27.1 - 32.0 pg [facility] MCHC 35.0 31.7 - 35.0 g/dL [facility] Platelets 109(L) 145 - 357 x10(3)/OK [facility] RDWSD 43.6 37.0 - 46.0 fL [facility] RDWCV 12.9 11.5 - 14.1 % [facility] MPV 10.4 7.6 - 12.9 fL [facility] nRBC % Auto 2.1 % [facility] nRBC Abs Auto 0.190(H) 0.000 - 0.000 x10(3)/[facility] Blood 05/15/2023 12:5 0 AM EDT 05/15/2023 12:52 AM EDT Narrative Resulting Agency Comment Spec In Lab Alirio Hudson MD HEMATOLOGY ORDERABL ES [facility] [place] [address] * (ABNORMAL) BLOOD GAS 2 VENOUS (05/15/2023 12:49 AM EDT) pH Mike 7.33 7.32 - 7.42 [facility] pCO2 Mike 37(L) 41 - 51 mmHg [facility] pO2 Mike 34 25 - 40 mmHg [facility] HCO3 Mike 19.1 mmol/L [facility] BE Mike -6.8 mmol/L [facility] Hgb Blood Gas 10.8(L) 11.7 - 15.5 g/dL [facility] O2HB Mike 58.1 % [facility] COHB Mike 0.3 % [facility] Comment: Nonsmokers: 0.5-1.5% COHB Smokers: Variable, but usually less than 10% Toxic: 20-30% COHB Lethal: Greater than 60% COHB METHB Mike 0.6 <=1.5 % [facility] Na Whole Blood 136 135 - 145 mmol/L [facility] K Whole Blood 3.7 3.5 - 5.0 mmol/L [facility] Comment: Please note: Patients with WBC >100,000 may have falsely elevated Potassium levels. Contact the Clinical Chemistry Laboratory if there are any questions. ICa Whole Blood 1.12(L) 1.15 - 1.33 mmol/L [facility] Comment: Note: ??Total bilirubin higher than 20 mg/dL may lead to falsely low ionized calcium. CL Whole Blood 95(L) 98 - 107 mmol/L [facility] Gluc Whole Bld 101 65 - 199 mg/dL [facility] Comment:Diabetes: >=200 mg/d L plus symptoms Lactate WB 1.3 0.5 - 2.2 mmol/L [facility] Flow Mike 1.0 LPM [facility] BGas Source Venous [facility] Blood 05/15/2023 12:4 9 AM EDT 05/15/2023 12:49 AM EDT Alirio Hudson MD CHEMISTRY ORDERABLE S Performing Organization Address City/State/[facility] Co de Phone Number [facility] [place] [address] * US Retroperitoneal Complete (05/14/2023 3:53 PM [...] signed by: Hayden Robledo MD, [facility] ([phone]), at 05/14/2023 4:32 PM Thank you for letting us participate in the care of this patient. If you are a health care provider and have any questions regarding this report, please contact the number above. For patients who have questions, please contact the health childcare aide that requested your imaging first. ? Hayden Robledo, Staff Physician Electronically Signed Final Report ?? 05/14/2023 04:39 pm Narrative 05/14/2023 4:39 PM EDT Renal ? (Signed Final 05/14/2023 04:39 pm) PATIENT INFO: ID #: ? [id number] ?: ??55 (67 yrs)(F) Name: ? PURNIMA THACKER ?Visit Date: 05/14/2023 03:44 pm PERFORMED BY: Attending: ?Meena CULP, Hayden Stafford Resident: ? Anand Camejo MD Performed By: ? Consuelo Tello RDMS Referred By: ?ALIRIO HUDSON Location: ? [place] SERVICE(S) PROVIDED: URETRO - Retroperitoneal Complete - [id number] ? [id number] INDICATIONS: EVANS COMPARISON: CT: Abdomen/Pelvis 05/11/23 RIGHT [...] 05/14/2023 04:39 pm) PATIENT INFO: ID #: [id number] : 55 (67 yrs)(F) Name: PURNIMA THACKER Visit Date: 05/14/2023 03:44 pm PERFORMED BY: Attending: Hayden Robledo MD Resident: Anand Camejo MD Performed By: Consuelo Tello RDMS Referred By: ALIRIO HUDSON Location: [place] SERVICE(S) PROVIDED: URETRO - Retroperitoneal Complete - [id number] INDICATIONS: EVANS COMPARISON: CT: Abdomen/Pelvis 05/11/23 RIGHT [...] who have questions, please contact the health childcare aide that requested your imaging first. Hayden Robledo, Staff Physician Electronically Signed Final Report 05/14/2023 04:39 pm Alirio Hudson MD IMG US GEN ORDERABL ES * CK (05/14/2023 3:17 PM EDT) CK, Total 123 0 - 160 unit/L [facility] Blood 05/14/2023 3:17 PM EDT 05/14/2023 3:31 PM EDT Narrative Resulting Agency Comment Spec In Lab Alirio Hudson MD CHEMISTRY ORDERABLE S Performing Organization Address [facility]/ZIP Co de Phone Number [facility] [place] [address] * (ABNORMAL) Uric acid (05/14/2023 3:17 PM EDT) Uric Acid 14.9(H) 2.5 - 6.5 mg/dL [facility] Blood 05/14/2023 3:17 PM EDT 05/14/2023 3:31 PM EDT Narrative Resulting Agency Comment Spec In Lab Alirio Hudson MD CHEMISTRY ORDERABLE S Performing Organization Address [facility]/ZIP Co de Phone Number [facility] [place] [address] * (ABNORMAL) Osmolality (05/14/2023 3:17 PM EDT) Osmolality 311(H) 275 - 295 mOsm/kg [facility] Blood 05/14/2023 3:17 PM EDT 05/14/2023 3:31 PM EDT Narrative Resulting Agency Comment Spec In Lab Alirio Hudson MD CHEMISTRY ORDERABLE S Performing Organization Address City/[facility]/ZIP Co de Phone Number [facility] [place] [address] * (ABNORMAL) Differential, Automated (05/14/2023 1:10 AM EDT) Neutrophils % 87.2 % [facility] Neutr Abs (ANC) 9.74(H) 1.70 - 6.10 x10(3)/ L [facility] Lymphocytes % 3.9 % [facility] Lymphocytes Abs 0.4(L) 0.9 - 3.2 x10(3)/[facility] Monocytes % 7.9 % [facility] Monocyte Abs 0.9 0.3 - 0.9 x10(3)/[facility] Eosinophils % 0.0 % [facility] Eosinophils Abs 0.0 0.0 - 0.4 x10(3)/[facility] Basophils % 0.1 % [facility] Basophils Abs 0.0 0.0 - 0.1 x10(3)/[facility] Immature Gran % 0.90 % [facility] Comment: Immature granulocytes(IG's)percentage and absolute count will include metamyelocytes, myelocytes, and promyelocytes. Blood smears from CBCs yielding IG's will be scanned manually for concordance. If this scan disagrees with the automated IG or if promyelocytes are noted, a manual differential will be performed. Amanda Gran Abs 0.10(H) 0.00 - 0.04 x10(3)/[facility] Blood 05/14/2023 1:10 AM EDT 05/14/2023 1:24 AM EDT Narrative Resulting Agency Comment Spec In Lab Bonita TOBAR HEMATOLOGY ORDERABLE S [facility] [place] [address] * (ABNORMAL) Hemogram (05/14/2023 1:10 AM EDT) Pathologist [facility] WBC 11.2(H) 4.0 - 9.5 x10(3)/[facility] RBC 2.19(L) 4.00 - 5.21 x10(6)/[facility] Hemoglobin 7.2(L) 11.7 - 15.5 g/dL [facility] Hematocrit 20.3(L) 35.7 - 45.8 % [facility] MCV 92.7 82.6 - 94.4 [facility] MCH 32.9(H) 27.1 - 32.0 pg [facility] MCHC 35.5(H) 31.7 - 35.0 g/dL [facility] Platelets 112(L) 145 - 357 x10(3)/[facility] RDWSD 41.4 37.0 - 46.0 [facility] RDWCV 12.5 11.5 - 14.1 % [facility] MPV 10.4 7.6 - 12.9 [facility] nRBC % Auto 1.5 % [facility] nRBC Abs Auto 0.170(H) 0.000 - 0.000 x10(3)/[facility] Blood 05/14/2023 1:10 AM EDT 05/14/2023 1:24 AM EDT Narrative Resulting Agency Comment Spec In Lab Bonita TOBAR HEMATOLOGY ORDERABLE S [facility] [place] [address] * (ABNORMAL) Comprehensive metabolic panel (non-fasting) (05/14/2023 1:10 AM EDT) Pathologist [facility] Glucose Lvl 120 65 - 199 mg/dL [facility] Comment:Diabetes: >=200 mg/d L plus symptoms BUN 98(H) 8 - 18 mg/dL [facility] Creatinine 4.80(H) 0.70 - 1.20 mg/dL [facility] Comment:result rechecked-ssc Sodium 132(L) 135 - 145 mmol/L [facility] Potassium 4.1 3.5 - 5.0 mmol/L [facility] Comment: Please note: ??Patients with WBC >100,000 may have falsely elevated Potassium levels. ??For accurate Potassium quantification in these patients send serum separator tube (gold top) for subsequent determinations. ??Contact the Clinical Chemistry Laboratory if there are any questions. Chloride 94(L) 98 - 107 mmol/L [facility] CO2 18(L) 22 - 31 mmol/L [facility] Anion Gap 20(H) 5 - 15 mmol/L [facility] Calcium 8.5 8.5 - 10.5 mg/dL [facility] Total Protein 5.8(L) 6.1 - 8.0 g/dL [facility] Albumin 3.6 3.2 - 5.2 g/dL [facility] AST 319(H) 0 - 30 unit/L [facility] ALT 437(H) 0 - 30 unit/L [facility] Alk Phos 86 35 - 105 unit/L [facility] Total Bilirubin 0.4 0.2 - 1.3 mg/dL [facility] Estimated GFR 9(L) >=60 mL/min/1. 73 m?? [facility] Comment: This patient's estimated GFR [...] MD CHEMISTRY ORDERABLE S Performing Organization Address [facility]/ZIP Co de Phone Number [facility] [place] [address] * APTT (05/13/2023 10:15 AM EDT) PTT 27 25 - 37 sec [facility] Comment: The PTT is NOT appropriate for heparin monitoring. Use the Anti-Xa level for heparin monitoring (HEP UFH) or LMWH monitoring (HEP LMW). A PTT less than 37 seconds generally indicates adequate hemostasis. Blood 05/13/2023 10:1 5 AM EDT 05/13/2023 10:46 AM EDT Narrative Resulting Agency Comment Spec In Lab Alirio Hudson MD HEMATOLOGY ORDERABL ES Performing Organization Address [facility] Co de Phone Number [facility] [place] [address] * (ABNORMAL) Prothrombin Time (05/13/2023 10:15 AM EDT) PT 14.6(H) 9.4 - 12.5 sec [facility] INR 1.3 [facility] Comment: An INR <2.0 [...] MD HEMATOLOGY ORDERABL ES Performing Organization Address [facility] Co de Phone Number [facility] [place] [address] * EKG 12 Lead (05/13/2023 9:22 AM EDT) Ventricular rate 92 BPM MUSE SYSTEM Atrial Rate 92 BPM MUSE SYSTEM P-R Interval 140 ms MUSE SYSTEM QRS Duration 104 ms MUSE SYSTEM Q-T Interval 384 ms MUSE SYSTEM QTC Calculated (Bezet) 474 ms MUSE SYSTEM Calculated P Douglas 33 degrees MUSE SYSTEM Calculated R Douglas 41 degrees MUSE SYSTEM Calculated T Douglas -35 degrees MUSE SYSTEM INTERPRETATION Sinus rhythm with frequent Premature ventricular complexes Septal infarct , age undetermined ST & T wave abnormality, consider lateral ischemia Abnormal ECG When compared with ECG of 12-MAY-2023 10:10, Premature ventricular complexes are now Present I personally reviewed the tracing and edited the fellows interpretation Confirmed by fellow MD Anitha, [facility] ([id number]) on 05/13/2023 3:25:30 PM Confirmed by Maxx Best ([id number]) on 05/13/2023 8:30:56 PM MUSE SYSTEM 05/13/2023 9:22 AM EDT 05/13/2023 8:30 PM EDT Alirio Hudson MD ECG ORDERABLES MUSE SYSTEM * (ABNORMAL) Differential, Automated (05/13/2023 1:15 AM EDT) Pathologist [facility] Neutrophils % 88.1 % [facility] Neutr Abs (ANC) 7.62(H) 1.70 - 6.10 x10(3)/mc L [facility] Lymphocytes % 3.1 % [facility] Lymphocytes Abs 0.3(L) 0.9 - 3.2 x10(3)/mc L [facility] Monocytes % 7.9 % [facility] Monocyte Abs 0.7 0.3 - 0.9 x10(3)/mc L [facility] Eosinophils % 0.0 % [facility] Eosinophils Abs 0.0 0.0 - 0.4 x10(3)/mc L [facility] Basophils % 0.1 % [facility] Basophils Abs 0.0 0.0 - 0.1 x10(3)/mc L [facility] Immature Gran % 0.80 % [facility] Comment: Immature granulocytes(IG's)percentage and absolute count will include metamyelocytes, myelocytes, and promyelocytes. Blood smears from CBCs yielding IG's will be scanned manually for concordance. If this scan disagrees with the automated IG or if promyelocytes are noted, a manual differential will be performed. Amanda Gran Abs 0.07(H) 0.00 - 0.04 x10(3)/mc L [facility] Blood 05/13/2023 1:15 AM EDT 05/13/2023 1:29 AM EDT Narrative Resulting Agency Comment Spec In Lab Lorri TOBAR HEMATOLOGY ORDERABLE S [facility] [place] [address] * (ABNORMAL) Hemogram (05/13/2023 1:15 AM EDT) WBC 8.6 4.0 - 9.5 x10(3)/[facility] RBC 2.37(L) 4.00 - 5.21 x10(6)/[facility] Hemoglobin 7.8(L) 11.7 - 15.5 g/dL [facility] Hematocrit 22.2(L) 35.7 - 45.8 % [facility] MCV 93.7 82.6 - 94.4 fL [facility] MCH 32.9(H) 27.1 - 32.0 pg [facility] MCHC 35.1(H) 31.7 - 35.0 g/dL [facility] Platelets 130(L) 145 - 357 x10(3)/[facility] RDWSD 41.7 37.0 - 46.0 fL [facility] RDWCV 12.5 11.5 - 14.1 % [facility] MPV 10.2 7.6 - 12.9 fL [facility] nRBC % Auto 0.5 % [facility] nRBC Abs Auto 0.040(H) 0.000 - 0.000 x10(3)/mcL [facility] Blood 05/13/2023 1:15 AM EDT 05/13/2023 1:29 AM EDT Narrative Resulting Agency Comment Spec In Lab Lorri TOBAR HEMATOLOGY ORDERABLE S [facility] [place] [address] * (ABNORMAL) Hepatic Function Panel (05/13/2023 1:15 AM EDT) Total Protein 5.5(L) 6.1 - 8.0 g/dL [facility] Albumin 3.0(L) 3.2 - 5.2 g/dL [facility] AST 792(H) 0 - 30 unit/L [facility] ALT 903(H) 0 - 30 unit/L [facility] Alk Phos 85 35 - 105 unit/L [facility] Total Bilirubin 0.5 0.2 - 1.3 mg/dL [facility] Bili, Direct 0.3 0.0 - 0.3 mg/dL [facility] Blood 05/13/2023 1:15 AM EDT 05/13/2023 1:29 AM EDT Narrative Resulting Agency Comment Spec In Lab Alirio Hudson MD CHEMISTRY ORDERABLE S [facility] [place] [address] * (ABNORMAL) Basic Metabolic Panel (non-fasting) (05/13/2023 1:15 AM EDT) Glucose Lvl 107 65 - 199 mg/dL [facility] Comment:Diabetes: >=200 mg/d L plus symptoms BUN 82(H) 8 - 18 mg/dL [facility] Creatinine 3.15(H) 0.70 - 1.20 mg/dL [facility] Comment:result rechecked-JSJ Sodium 132(L) 135 - 145 mmol/L [facility] Potassium 3.8 3.5 - 5.0 mmol/L [facility] Comment: Please note: ??Patients with WBC >100,000 may have falsely elevated Potassium levels. ??For accurate Potassium quantification in these patients send serum separator tube (gold top) for subsequent determinations. ??Contact the Clinical Chemistry Laboratory if there are any questions. Chloride 95(L) 98 - 107 mmol/L [facility] CO2 20(L) 22 - 31 mmol/L [facility] Anion Gap 17(H) 5 - 15 mmol/L [facility] Calcium 8.3(L) 8.5 - 10.5 mg/dL [facility] Estimated GFR 16(L) >=60 mL/min/1. 73 m?? [facility] Comment: This patient's estimated GFR [...] Lab Alirio Hudson MD CHEMISTRY ORDERABLE S [facility] [place] [address] * (ABNORMAL) BLOOD GAS 2 ARTERIAL (05/12/2023 3:57 PM EDT) pH Art 7.39 7.35 - 7.45 [facility] pCO2 Art 33(L) 35 - 45 mmHg [facility] pO2 Art 101 85 - 104 mmHg [facility] HCO3 Art 19.5(L) 20.0 - 26.0 mmol/L [facility] BE Art -5.5(L) -3.0 - 3.0 mmol/L [facility] Hgb Blood Gas 9.8(L) 11.7 - 15.5 g/dL [facility] O2HB Art 95.2 94.0 - 97.0 % [facility] COHB Art 0.2 % [facility] Comment: Nonsmokers: 0.5-1.5% COHB Smokers: Variable, but usually less than 10% Toxic: 20-30% COHB Lethal: Greater than 60% COHB METHB Art 0.8 <=1.5 % [facility] Na Whole Blood 129(L) 135 - 145 mmol/L [facility] K Whole Blood 3.8 3.5 - 5.0 mmol/L [facility] Comment: Please note: Patients with WBC >100,000 may have falsely elevated Potassium levels. Contact the Clinical Chemistry Laboratory if there are any questions. ICa Whole Blood 1.05(L) 1.15 - 1.33 mmol/L [facility] Comment: Note: ??Total bilirubin higher than 20 mg/dL may lead to falsely low ionized calcium. CL Whole Blood 96(L) 98 - 107 mmol/L [facility] Gluc Whole Bld 178 65 - 199 mg/dL [facility] Comment:Diabetes: >=200 mg/d L plus symptoms. Lactate WB 1.5 0.5 - 2.2 mmol/L [facility] FIO2 Art 40 % [facility] PF Ratio Art 252 [facility] Blood 05/12/2023 3:57 PM EDT 05/12/2023 3:57 PM EDT Alirio Hudson MD CHEMISTRY ORDERABLE S Performing Organization Address City/[facility]/ZIP Co de Phone Number [facility] [place] [address] * (ABNORMAL) Coox2 (05/12/2023 2:25 PM EDT) pO2 Coox 37 mmHg [facility] Hgb Blood Gas 9.5(L) 11.7 - 15.5 g/dL [facility] O2HB Coox 59.9 % [facility] COHB Coox 0.3 % [facility] Comment: Nonsmokers: 0.5-1.5% COHB Smokers: Variable, but usually less than 10% Toxic: 20-30% COHB Lethal: Greater than 60% COHB METHB Coox 0.7 <=1.5 % [facility] Source Coox Mixed Venous [facility] Blood 05/12/2023 2:25 PM EDT 05/12/2023 2:25 PM EDT Alirio Hudson MD CHEMISTRY ORDERABLE S Performing Organization Address City/[facility] Co de Phone Number [facility] [place] [address] * (ABNORMAL) BLOOD GAS 2 ARTERIAL (05/12/2023 2:23 PM EDT) pH Art 7.37 7.35 - 7.45 [facility] pCO2 Art 36 35 - 45 mmHg [facility] pO2 Art 102 85 - 104 mmHg [facility] HCO3 Art 20.4 20.0 - 26.0 mmol/L [facility] BE Art -4.8(L) -3.0 - 3.0 mmol/L [facility] Hgb Blood Gas 12.7 11.7 - 15.5 g/dL [facility] O2HB Art 95.4 94.0 - 97.0 % [facility] COHB Art 0.3 % [facility] Comment: Nonsmokers: 0.5-1.5% COHB Smokers: Variable, but usually less than 10% Toxic: 20-30% COHB Lethal: Greater than 60% COHB METHB Art 0.7 <=1.5 % [facility] Na Whole Blood 129(L) 135 - 145 mmol/L [facility] K Whole Blood 3.7 3.5 - 5.0 mmol/L [facility] Comment: Please note: Patients with WBC >100,000 may have falsely elevated Potassium levels. Contact the Clinical Chemistry Laboratory if there are any questions. ICa Whole Blood 1.05(L) 1.15 - 1.33 mmol/L [facility] Comment: Note: ??Total bilirubin higher than 20 mg/dL may lead to falsely low ionized calcium. CL Whole Blood 95(L) 98 - 107 mmol/L [facility] Gluc Whole Bld 168 65 - 199 mg/dL [facility] Comment:Diabetes: >=200 mg/d L plus symptoms. Lactate WB 1.8 0.5 - 2.2 mmol/L [facility] FIO2 Art 40 % [facility] PF Ratio Art 255 [facility] Blood 05/12/2023 2:23 PM EDT 05/12/2023 2:23 PM EDT Alirio Hudson MD CHEMISTRY ORDERABLE S [facility] [place] [address] * (ABNORMAL) Troponin (05/12/2023 2:05 PM EDT) Troponin-T HS 1,022(H) <=14 ng/L [facility] Comment: This patient's troponin T [...] troponin value can be found in the [facility] Test Catalog Troponin - [facility] Test Catalog Reference: Fourth [place] Definition of Myocardial Infarction. Journal of the [place] [employer] 2018;72:6330-4905 Blood 05/12/2023 2:05 PM EDT 05/12/2023 2:14 PM EDT Narrative Resulting Agency Comment Spec In Lab Alirio Hudson MD CHEMISTRY ORDERABLE S Performing Organization Address [facility]/ZIP Co de Phone Number [facility] [place] [address] * (ABNORMAL) Hemoglobin (05/12/2023 2:05 PM EDT) Hemoglobin 8.5(L) 11.7 - 15.5 g/dL [facility] Blood 05/12/2023 2:05 PM EDT 05/12/2023 2:14 PM EDT Narrative Resulting Agency Comment Spec In Lab Alirio Hudson MD HEMATOLOGY ORDERABL ES Performing Organization Address City/[facility]/ZIP Co de Phone Number [facility] [place] [address] * Potassium (05/12/2023 2:05 PM EDT) Potassium 3.9 3.5 - 5.0 mmol/L [facility] Comment: Please note: ??Patients with WBC >100,000 may have falsely elevated Potassium levels. ??For accurate Potassium quantification in these patients send serum separator tube (gold top) for subsequent determinations. ??Contact the Clinical Chemistry Laboratory if there are any questions. Blood 05/12/2023 2:05 PM EDT 05/12/2023 2:14 PM EDT Narrative Resulting Agency Comment Spec In Lab Alirio Hudson MD CHEMISTRY ORDERABLE S [facility] [place] [address] * (ABNORMAL) BLOOD GAS 2 ARTERIAL (05/12/2023 11:05 AM EDT) pH Art 7.34(L) 7.35 - 7.45 [facility] pCO2 Art 42 35 - 45 mmHg [facility] pO2 Art 73(L) 85 - 104 mmHg [facility] HCO3 Art 22.1 20.0 - 26.0 mmol/L [facility] BE Art -3.6(L) -3.0 - 3.0 mmol/L [facility] Hgb Blood Gas 9.3(L) 11.7 - 15.5 g/dL [facility] O2HB Art 89.3(L) 94.0 - 97.0 % [facility] COHB Art 0.2 % [facility] Comment: Nonsmokers: 0.5-1.5% COHB Smokers: Variable, but usually less than 10% Toxic: 20-30% COHB Lethal: Greater than 60% COHB METHB Art 0.9 <=1.5 % [facility] Na Whole Blood 131(L) 135 - 145 mmol/L [facility] K Whole Blood 3.8 3.5 - 5.0 mmol/L [facility] Comment: Please note: Patients with WBC >100,000 may have falsely elevated Potassium levels. Contact the Clinical Chemistry Laboratory if there are any questions. ICa Whole Blood 1.04(L) 1.15 - 1.33 mmol/L [facility] Comment: Note: ??Total bilirubin higher than 20 mg/dL may lead to falsely low ionized calcium. CL Whole Blood 96(L) 98 - 107 mmol/L [facility] Gluc Whole Bld 152 65 - 199 mg/dL [facility] Comment:Diabetes: >=200 mg/d L plus symptoms. Lactate WB 2.8(H) 0.5 - 2.2 mmol/L [facility] FIO2 Art 40 % [facility] PF Ratio Art 182 [facility] Blood 05/12/2023 11:0 5 AM EDT 05/12/2023 11:05 AM EDT Alirio Hudson MD CHEMISTRY ORDERABLE S Performing Organization Address City/State/[facility] Co de Phone Number [facility] [place] [address] * (ABNORMAL) BLOOD GAS 2 ARTERIAL (05/12/2023 10:14 AM EDT) pH Art 7.18(Criti gabrielle) 7.35 - 7.45 [facility] Comment:Noted by electronic instrument trades worker. pCO2 Art 45 35 - 45 mmHg [facility] pO2 Art 186(H) 85 - 104 mmHg [facility] HCO3 Art 16.2(L) 20.0 - 26.0 mmol/L [facility] BE Art -12.2(L) -3.0 - 3.0 mmol/L [facility] Hgb Blood Gas 10.0(L) 11.7 - 15.5 g/dL [facility] O2HB Art 97.0 94.0 - 97.0 % [facility] COHB Art 0.2 % [facility] Comment: Nonsmokers: 0.5-1.5% COHB Smokers: Variable, but usually less than 10% Toxic: 20-30% COHB Lethal: Greater than 60% COHB METHB Art 0.9 <=1.5 % [facility] Na Whole Blood 129(L) 135 - 145 mmol/L [facility] K Whole Blood 3.6 3.5 - 5.0 mmol/L [facility] Comment: Please note: Patients with WBC >100,000 may have falsely elevated Potassium levels. Contact the Clinical Chemistry Laboratory if there are any questions. ICa Whole Blood 1.10(L) 1.15 - 1.33 mmol/L [facility] Comment: Note: ??Total bilirubin higher than 20 mg/dL may lead to falsely low ionized calcium. CL Whole Blood 97(L) 98 - 107 mmol/L [facility] Gluc Whole Bld 161 65 - 199 mg/dL [facility] Comment:Diabetes: >=200 mg/d L plus symptoms. Lactate WB 3.3(H) 0.5 - 2.2 mmol/L [facility] FIO2 Art 100 % [facility] PF Ratio Art 186 [facility] Blood 05/12/2023 10:1 4 AM EDT 05/12/2023 10:14 AM EDT Alirio Hudson MD CHEMISTRY ORDERABLE S Performing Organization Address City/State/[facility] Co de Phone Number [facility] [place] [address] * EKG 12 Lead (05/12/2023 10:10 AM EDT) Ventricular rate 116 BPM MUSE SYSTEM Atrial Rate 116 BPM MUSE SYSTEM P-R Interval 158 ms MUSE SYSTEM QRS Duration 114 ms MUSE SYSTEM Q-T Interval 348 ms MUSE SYSTEM QTC Calculated (Bezet) 483 ms MUSE SYSTEM Calculated P Douglas 37 degrees MUSE SYSTEM Calculated R Douglas 31 degrees MUSE SYSTEM Calculated T Douglas -138 degrees MUSE SYSTEM INTERPRETATION Sinus tachycardia with intermittent aberrant ventricular conduction Possible Left atrial enlargement Incomplete left bundle block Left ventricular hypertrophy with repolarization abnormality ( Sokolow-Orozco , [place] product ) ST & T wave abnormality in Inferolateral leads Abnormal ECG When compared with ECG of 10-MAY-2023 13:16, ST & T wave abnormality is more pronounced in inferolateral leads I personally reviewed the tracing and edited the fellows interpretation Confirmed by fellow MD Anuja, Jim ([id number]) on 05/12/2023 1:04:20 PM Confirmed by MD Villareal Danette ([id number]) on 05/12/2023 9:28:34 PM MUSE SYSTEM 05/12/2023 [...] have questions please contact the health childcare aide that requested your imaging first. ? Electronically signed by: Chyna Johnson MD, [facility] ??([phone]), at 05/12/2023 10:08 AM Narrative 05/12/2023 10:08 AM EDT EXAMINATION: XR CHEST ONE VIEW CLINICAL HISTORY: Post TAVR TECHNIQUE: 1 view of the chest COMPARISON: Chest radiograph from earlier today FINDINGS: Interval placement of endotracheal tube with tip terminating 2 cm above the shira. Interval placement of enteric tube projecting along the expected course of the esophagus and outside the ydjwc-gr-inbn. Interval retraction of right IJ approach pulmonary [...] expected course ofthe esophagus and outside the ocuvs-jo-koci. Interval retraction of right IJ approach pulmonary [...] who have questions please contactthe health childcare aide that requested your imaging first. Alirio Hudson [...] 1955 ? Height: 154 cm ? Account: [id number] Age: 67 yrs ? Weight: 75 kg Gender: Female ?BSA: 1.7 m2 Ordering Physician: RADHA HOLLINS Referring Physician: RADHA HOLLINS Performed By: Dilma Bee RDCS Reason For Study: Guidance for TAVR procedure Exam Location: [facility]. Interpretation Summary PRE TAVR: There is severe [...] mL/m2. POST TAVR: Normal function of the ckeqp-eg-vgcvy prosthesis. See below for hemodynamic parameters. Slight improvement in left and right ventricular systolic function. LVEF now 20-25%. No pericardial effusion. See report for additional findings. Procedure Limited - 97535. Doppler - 67497. Color Doppler - 53377. Left Ventricle Left ventricle is of normal [...] Date: 307:33 AMBP: 96/63 mmHg Patient Location: [address] : 1955 Height: 154 cm Account: [id number] Age: 67 yrs Weight: 75 kg Gender: Female BSA: 1.7 m2 Ordering Physician: RADHA HOLLINS Referring Physician: RADHA HOLLINS Performed By: Dilma Bee RDCS Reason For Study: Guidance for TAVR procedure Exam Location: [facility]. Interpretation Summary PRE TAVR: There is severe [...] 28mL/m2. POST TAVR: Normal function of the cqgiu-kv-qtejr prosthesis. See belowfor hemodynamic parameters. Slight improvement in left and right ventricularsystolic function. LVEF now 20-25%. No pericardial effusion. See report for additional findings. Procedure Limited - 74418. Doppler - 10602. Color Doppler - 18365. Left Ventricle Left ventricle is of normal [...] Modality Other Narrative 05/12/2023 2:37 PM EDT ?[facility] ? Cardiac Catheterization/Intervention Report ? Patient Name: Kirstie, Purnima M. ? Procedure Date: 05/12/2023 ? A #: [id number] ? Primary Physician: Antelmo Sharma ? Case #: [id number] ? File Name: [id number] ? Catheterization Order Number: [id number] ? [facility] ? Final Report [place], [place] ? Patient Name: ? Purnimakary Thacker ? ID#: ?[id number] ? : ?1955 ? Procedure Date: ? May 12, 2023 ? Case #: ? [id number] ? Room: ? 6 ? Case Physicians: ?Antelmo Sharma M.D. ?Start: ?08:03 ?Alirio Hudson M.D. ?Admission: ??05/08/2023 ?Lynda Mcgowan M.D. ? Discharge: ??05/22/2023 ?Fellow: ? Emad Mogadam, M.D. ? Referring Physician: ??Mario Alberto Chin M.D. ? Procedures: ?* Coronary Angiography ?* Left Heart Catheterization ?* Coronary Stent Insertion ?* Transcatheter Aortic Valve Replacement ?* Vascular Closure Device Deployment ?* Temporary Pacemaker Insertion In Senior Android Software Engineer ?* Endotracheal Intubation By Non-Cath Physician ?* [...] ??A premounted 4.00 x 30 mm Nils Mohawk (MINNA) was ? deployed with a maximum [...] calculated STS risk score was 30.1%. A gqwin-bn-tcopi ?procedure was performed on the pre-existing bioprosthetic stented ?prosthesis. The priority of the mmnte-zl-vhspp procedure was Elective. ?The procedure was performed [...] Lai 3 Ultra RESILIA 23 mm THV (s/l=[id number]) transcatheter ?valve was inserted using standard technique. [...] to nor was it given in the ?medical laboratory manager. ?Recommended anti-platelet/anti-thrombotic regimen: ?Continue aspirin 81 mg daily for indefinitely. ?These recommendations are made at the time of the intervention. Patient ?and provider preferences or a changing clinical situation may require ?modification of this regimen. Consult [facility] Interventional Cardiology for ?questions. ? Conclusions: ?* [...] regimen. ? Comments: ?Successful right transfemoral TAVR Hmtqx-en-Bpcec with a 23 mm Lai 3 ?THV. [...] insertion-coronary, access site angiography, ?temporary pacemaker in medical laboratory manager, intubation-non cath physician, vascular ?closure device, transthoracic echo ??and TAVR. Dr. Alirio Hudson M.D. ?performed the left heart catheterization, access site angiography, ?temporary pacemaker in medical laboratory manager, vascular closure device, transthoracic ?echo , TAVR and CPR during cath. Dr. Lynda Mcgowan M.D. performed the ABG, ?anesthesia and intubation-non cath physician. ? Antelmo Sharma M.D. ? Electronically Signed by: Antelmo Sharma M.D. ? Report Finalized: 05/12/2023 ??14:31 ? Report Last Ammended: 07/01/2023 ??11:30 ? Procedure Note Antelmo Sharma MD - 07/01/2023 [facility] Cardiac Catheterization/Intervention Report Patient Name: Purnima Thacker Procedure Date: 05/12/2023 A #: [id number] Primary Physician: Antelmo Sharma Case #: [id number] File Name: [id number] Catheterization Order Number: [id number] [facility] FinalReport [place], [place] Patient Name: Purnima Thacker ID#:[id number] :1955 Procedure Date: May 12, 2023 Case #: [id number] Room: 6 Case Physicians: Antelmo Sharma M.D. Start: 08:03 Alirio Hudson M.D. Admission:05/08/2023 Lynda Mcgowan M.D. Discharge:05/22/2023 Fellow: Rebekah Tejeda M.D. Referring Physician: Mario Alberto Chin M.D. Procedures: * Coronary Angiography * Left Heart Catheterization * Coronary Stent Insertion * Transcatheter Aortic Valve Replacement * Vascular Closure Device Deployment * Temporary Pacemaker Insertion In Senior Android Software Engineer * Endotracheal Intubation By Non-Cath Physician * [...] guide. A premounted 4.00 x 30 mm [facility] [place] (MINNA) was deployed with a maximum inflation [...] calculated STS risk score was 30.1%. A dkdst-ul-yikku procedure was performed on the pre-existing bioprosthetic stented prosthesis. The priority of the xxmyf-db-zvzhk procedure wasElective. The procedure was performed under Moderate sedation performed byLynda Mcgowan M.D. (see anesthesia report for additional details). Alirio Hudson M.D. participated in the case (see Cardiac Surgery reportfor additional details). The TAVR sheath was a 14 Fr Corona eSheath Introducer and theaccess site was femoral. Rapid ventricular pacing was performed. An Corona Lai 3 Ultra RESILIA 23 mm THV (s/q=[id number])transcatheter valve was inserted using standard technique. The [...] prior to nor was it given inthe medical laboratory manager. Recommended anti-platelet/anti-thrombotic regimen: Continue aspirin 81 mg daily for indefinitely. These recommendations are made at the time of the intervention.Patient and provider preferences or a changing clinical situation mayrequire modification of this regimen. Consult [facility] Interventional Cardiologyfor questions. Conclusions: * Nonobstructive disease [...] this regimen. Comments: Successful right transfemoral TAVR Cmobm-iw-Zlbbz with a 23 mmSapien 3 THV. We [...] insertion-coronary, access site angiography, temporary pacemaker in medical laboratory manager, intubation-non cath physician,vascular closure device, transthoracic echo and TAVR. Dr. Alirio Hudson M.D. performed the left heart catheterization, access site angiography, temporary pacemaker in medical laboratory manager, vascular closure device,transthoracic echo , TAVR and [...] POC pH 7.20(Crit ical) 7.35 - 7.45 [facility] Comment:Critical value OKYamel C Lab. POC PCO2 42 35 - 45 mmHg [facility] POC PO2 260(H) 85 - 104 mmHg [facility] POC Base Excess -11.0(L) -3.0 - 3.0 mmol/L [facility] POC HCO3 16.7(L) 20.0 - 26.0 mmol/L [facility] POC Sodium 129(L) 135 - 145 mmol/L [facility] POC Potassium 3.8 3.5 - 5.0 mmol/L [facility] POC Ionized Ca 1.12(L) 1.15 - 1.33 mmol/L [facility] POC Hematocrit 23.0(L) 34.0 - 45.0 % [facility] POC Calc Hgb 7.8(L) 11.2 - 15.7 g/dL [facility] Comment:The calculation of h emoglobin from hematocrit assumes a normal MCHC. POC Bgas Loc CC Lab [facility] Blood 05/12/2023 8:50 AM EDT 05/13/2023 12:00 PM EDT Alirio Hudson MD CHEMISTRY ORDERABLE S Performing Organization Address City/State/[facility] Co de Phone Number [facility] [place] [address] * (ABNORMAL) Point of Care Blood Gas Historical (05/12/2023 8:10 AM EDT) POC pH 7.27(Crit ical) 7.35 - 7.45 [facility] Comment:Critical value Yamel KRAUSE C Lab. POC PCO2 37 35 - 45 mmHg [facility] POC PO2 29(Critic al) 85 - 104 mmHg [facility] Comment:Critical value OK C C Lab. POC Base Excess -10.0(L) -3.0 - 3.0 mmol/L [facility] POC HCO3 16.7(L) 20.0 - 26.0 mmol/L [facility] POC Sodium 123(L) 135 - 145 mmol/L [facility] POC Potassium 4.0 3.5 - 5.0 mmol/L [facility] POC Ionized Ca 1.12(L) 1.15 - 1.33 mmol/L [facility] POC Hematocrit 27.0(L) 34.0 - 45.0 % [facility] POC Calc Hgb 9.2(L) 11.2 - 15.7 g/dL [facility] Comment:The calculation of h emoglobin from hematocrit assumes a normal MCHC. POC Bgas Loc CC Lab [facility] Blood 05/12/2023 8:10 AM EDT 05/13/2023 12:00 PM EDT Alirio Hudson MD CHEMISTRY ORDERABLE S Performing Organization Address City/[facility]/ZIP Co de Phone Number [facility] [place] [address] * (ABNORMAL) Lactate, whole blood, send to lab ([facility]) (05/12/2023 7:00 AM EDT) Lactate WB 2.4(H) 0.5 - 2.2 mmol/L [facility] Blood 05/12/2023 7:00 AM EDT 05/12/2023 7:09 AM EDT Narrative Resulting Agency Comment Spec In Lab Radha Hollins MD CHEMISTRY ORDERABL ES Performing Organization Address City/[facility]/ZIP Co de Phone Number [facility] [place] [address] * (ABNORMAL) Comprehensive metabolic panel (non-fasting) (05/12/2023 6:00 AM EDT) Glucose Lvl 167 65 - 199 mg/dL [facility] Comment:Diabetes: >=200 mg/d L plus symptoms BUN 67(H) 8 - 18 mg/dL [facility] Creatinine 2.01(H) 0.70 - 1.20 mg/dL [facility] Sodium 131(L) 135 - 145 mmol/L [facility] Potassium 4.3 3.5 - 5.0 mmol/L [facility] Comment: Please note: ??Patients with WBC >100,000 may have falsely elevated Potassium levels. ??For accurate Potassium quantification in these patients send serum separator tube (gold top) for subsequent determinations. ??Contact the Clinical Chemistry Laboratory if there are any questions. Chloride 97(L) 98 - 107 mmol/L [facility] CO2 14(L) 22 - 31 mmol/L [facility] Anion Gap 20(H) 5 - 15 mmol/L [facility] Calcium 8.6 8.5 - 10.5 mg/dL [facility] Total Protein 6.3 6.1 - 8.0 g/dL [facility] Albumin 3.5 3.2 - 5.2 g/dL [facility] AST 1,435(H) 0 - 30 unit/L [facility] ALT 1,174(H) 0 - 30 unit/L [facility] Alk Phos 100 35 - 105 unit/L [facility] Total Bilirubin 0.9 0.2 - 1.3 mg/dL [facility] Estimated GFR 27(L) >=60 mL/min/1. 73 m?? [facility] Comment: This patient's estimated GFR [...] Lab Radha Hollins MD CHEMISTRY ORDERABL ES [facility] [place] [address] * (ABNORMAL) Coox2 (05/12/2023 5:08 AM EDT) pO2 Coox 24 mmHg [facility] Hgb Blood Gas 10.4(L) 11.7 - 15.5 g/dL [facility] O2HB Coox 30.7 % [facility] COHB Coox 0.3 % [facility] Comment: Nonsmokers: 0.5-1.5% COHB Smokers: Variable, but usually less than 10% Toxic: 20-30% COHB Lethal: Greater than 60% COHB METHB Coox 0.8 <=1.5 % [facility] Source Coox Mixed Venous [facility] Blood 05/12/2023 5:08 AM EDT 05/12/2023 5:08 AM EDT Radha Hollins MD CHEMISTRY ORDERABL ES [facility] [place] [address] * (ABNORMAL) Coox2 (05/12/2023 3:21 AM EDT) pO2 Coox 25 mmHg [facility] Hgb Blood Gas 10.8(L) 11.7 - 15.5 g/dL [facility] O2HB Coox 32.7 % [facility] COHB Coox 0.3 % [facility] Comment: Nonsmokers: 0.5-1.5% COHB Smokers: Variable, but usually less than 10% Toxic: 20-30% COHB Lethal: Greater than 60% COHB METHB Coox 0.7 <=1.5 % [facility] Source Coox Mixed Venous [facility] Blood 05/12/2023 3:21 AM EDT 05/12/2023 3:21 AM EDT Radha Hollins MD CHEMISTRY ORDERABL ES [facility] [place] [address] * (ABNORMAL) BLOOD GAS 2 ARTERIAL (05/12/2023 3:18 AM EDT) pH Art 7.34(L) 7.35 - 7.45 [facility] pCO2 Art 30(L) 35 - 45 mmHg [facility] pO2 Art 72(L) 85 - 104 mmHg [facility] HCO3 Art 16.0(L) 20.0 - 26.0 mmol/L [facility] BE Art -9.8(L) -3.0 - 3.0 mmol/L [facility] Hgb Blood Gas 11.0(L) 11.7 - 15.5 g/dL [facility] O2HB Art 89.8(L) 94.0 - 97.0 % [facility] COHB Art 0.3 % [facility] Comment: Nonsmokers: 0.5-1.5% COHB Smokers: Variable, but usually less than 10% Toxic: 20-30% COHB Lethal: Greater than 60% COHB METHB Art 0.7 <=1.5 % [facility] Na Whole Blood 131(L) 135 - 145 mmol/L [facility] K Whole Blood 4.2 3.5 - 5.0 mmol/L [facility] Comment: Please note: Patients with WBC >100,000 may have falsely elevated Potassium levels. Contact the Clinical Chemistry Laboratory if there are any questions. ICa Whole Blood 1.12(L) 1.15 - 1.33 mmol/L [facility] Comment: Note: ??Total bilirubin higher than 20 mg/dL may lead to falsely low ionized calcium. CL Whole Blood 100 98 - 107 mmol/L [facility] Gluc Whole Bld 160 65 - 199 mg/dL [facility] Comment:Diabetes: >=200 mg/d L plus symptoms. Lactate WB 2.7(H) 0.5 - 2.2 mmol/L [facility] Flow Art 5.0 LPM [facility] Blood 05/12/2023 3:18 AM EDT 05/12/2023 3:18 AM EDT Radha Hollins MD CHEMISTRY ORDERABL ES Performing Organization Address City/[facility] Co de Phone Number [facility] [place] [address] * (ABNORMAL) Coox2 (05/12/2023 1:14 AM EDT) pO2 Coox 28 mmHg [facility] Hgb Blood Gas 10.9(L) 11.7 - 15.5 g/dL [facility] O2HB Coox 37.3 % [facility] COHB Coox 0.3 % [facility] Comment: Nonsmokers: 0.5-1.5% COHB Smokers: Variable, but usually less than 10% Toxic: 20-30% COHB Lethal: Greater than 60% COHB METHB Coox 0.5 <=1.5 % [facility] Source Coox Mixed Venous [facility] Blood 05/12/2023 1:14 AM EDT 05/12/2023 1:14 AM EDT Radha Hollins MD CHEMISTRY ORDERABL ES Performing Organization Address City/[facility] Co de Phone Number [facility] [place] [address] * (ABNORMAL) BLOOD GAS 2 ARTERIAL (05/12/2023 1:06 AM EDT) pH Art 7.34(L) 7.35 - 7.45 [facility] pCO2 Art 30(L) 35 - 45 mmHg [facility] pO2 Art 81(L) 85 - 104 mmHg [facility] HCO3 Art 15.7(L) 20.0 - 26.0 mmol/L [facility] BE Art -10.1(L) -3.0 - 3.0 mmol/L [facility] Hgb Blood Gas 11.0(L) 11.7 - 15.5 g/dL [facility] O2HB Art 92.3(L) 94.0 - 97.0 % [facility] COHB Art 0.2 % [facility] Comment: Nonsmokers: 0.5-1.5% COHB Smokers: Variable, but usually less than 10% Toxic: 20-30% COHB Lethal: Greater than 60% COHB METHB Art 0.6 <=1.5 % [facility] Na Whole Blood 131(L) 135 - 145 mmol/L [facility] K Whole Blood 4.2 3.5 - 5.0 mmol/L [facility] Comment: Please note: Patients with WBC >100,000 may have falsely elevated Potassium levels. Contact the Clinical Chemistry Laboratory if there are any questions. ICa Whole Blood 1.13(L) 1.15 - 1.33 mmol/L [facility] Comment: Note: ??Total bilirubin higher than 20 mg/dL may lead to falsely low ionized calcium. CL Whole Blood 99 98 - 107 mmol/L [facility] Gluc Whole Bld 132 65 - 199 mg/dL [facility] Comment:Diabetes: >=200 mg/d L plus symptoms. Lactate WB 2.7(H) 0.5 - 2.2 mmol/L [facility] Flow Art 5.0 LPM [facility] Blood 05/12/2023 1:06 AM EDT 05/12/2023 1:06 AM EDT Radha Hollins MD CHEMISTRY ORDERABL ES [facility] [place] [address] * (ABNORMAL) Differential, Automated (05/12/2023 1:05 AM EDT) Neutrophils % 83.3 % [facility] Neutr Abs (ANC) 7.49(H) 1.70 - 6.10 x10(3)/[facility] Lymphocytes % 7.1 % [facility] Lymphocytes Abs 0.6(L) 0.9 - 3.2 x10(3)/[facility] Monocytes % 8.9 % [facility] Monocyte Abs 0.8 0.3 - 0.9 x10(3)/[facility] Eosinophils % 0.0 % [facility] Eosinophils Abs 0.0 0.0 - 0.4 x10(3)/[facility] Basophils % 0.1 % [facility] Basophils Abs 0.0 0.0 - 0.1 x10(3)/[facility] Immature Gran % 0.60 % [facility] Comment: Immature granulocytes(IG's)percentage and absolute count will include metamyelocytes, myelocytes, and promyelocytes. Blood smears from CBCs yielding IG's will be scanned manually for concordance. If this scan disagrees with the automated IG or if promyelocytes are noted, a manual differential will be performed. Amanda Gran Abs 0.05(H) 0.00 - 0.04 x10(3)/[facility] Blood 05/12/2023 1:05 AM EDT 05/12/2023 1:15 AM EDT Narrative Resulting Agency Comment Spec In Lab Gianni Fletcher MD HEMATOLOGY ORDERABLE S [facility] [place] [address] * (ABNORMAL) Hemogram (05/12/2023 1:05 AM EDT) WBC 9.0 4.0 - 9.5 x10(3)/[facility] RBC 3.01(L) 4.00 - 5.21 x10(6)/[facility] Hemoglobin 9.8(L) 11.7 - 15.5 g/dL [facility] Hematocrit 28.7(L) 35.7 - 45.8 % [facility] MCV 95.3(H) 82.6 - 94.4 [facility] MCH 32.6(H) 27.1 - 32.0 pg [facility] MCHC 34.1 31.7 - 35.0 g/dL [facility] Platelets 186 145 - 357 x10(3)/[facility] RDWSD 43.7 37.0 - 46.0 [facility] RDWCV 12.7 11.5 - 14.1 % [facility] MPV 10.3 7.6 - 12.9 [facility] nRBC % Auto 0.0 % [facility] nRBC Abs Auto 0.000 0.000 - 0.000 x10(3)/[facility] Blood 05/12/2023 1:05 AM EDT 05/12/2023 1:15 AM EDT Narrative Resulting Agency Comment Spec In Lab Gianni Fletcher MD HEMATOLOGY ORDERABLE S [facility] [place] [address] * (ABNORMAL) Comprehensive metabolic panel (non-fasting) (05/12/2023 1:05 AM EDT) Glucose Lvl 141 65 - 199 mg/dL [facility] Comment:Diabetes: >=200 mg/d L plus symptoms BUN 63(H) 8 - 18 mg/dL [facility] Creatinine 1.86(H) 0.70 - 1.20 mg/dL [facility] Sodium 131(L) 135 - 145 mmol/L [facility] Potassium 4.4 3.5 - 5.0 mmol/L [facility] Comment: Please note: ??Patients with WBC >100,000 may have falsely elevated Potassium levels. ??For accurate Potassium quantification in these patients send serum separator tube (gold top) for subsequent determinations. ??Contact the Clinical Chemistry Laboratory if there are any questions. Chloride 96(L) 98 - 107 mmol/L [facility] CO2 14(L) 22 - 31 mmol/L [facility] Anion Gap 21(H) 5 - 15 mmol/L [facility] Calcium 9.0 8.5 - 10.5 mg/dL [facility] Total Protein 6.6 6.1 - 8.0 g/dL [facility] Albumin 3.9 3.2 - 5.2 g/dL [facility] AST 1,227(H) 0 - 30 unit/L [facility] ALT 1,097(H) 0 - 30 unit/L [facility] Alk Phos 108(H) 35 - 105 unit/L [facility] Total Bilirubin 1.0 0.2 - 1.3 mg/dL [facility] Estimated GFR 29(L) >=60 mL/min/1. 73 m?? [facility] Comment: This patient's estimated GFR [...] Hollins MD CHEMISTRY ORDER[place] [address] * XR Chest One View (05/12/2023 1:00 [...] have questions please contact the health childcare aide that requested your imaging first. ? Electronically signed by: Will Rowe MD, [facility] ([phone]), at 05/12/2023 3:16 AM Narrative 05/12/2023 3:16 [...] who have questions please contactthe health childcare aide that requested your imaging first. Electronically signed by: Will Rowe MD, [facility]([phone]), at 05/12/2023 3:16 AM Radha Hollins MD IMG DX ORDERABLES * (ABNORMAL) Coox2 (05/12/2023 12:30 AM EDT) pO2 Coox 22 mmHg [facility] Hgb Blood Gas 10.9(L) 11.7 - 15.5 g/dL [facility] O2HB Coox 25.1 % [facility] COHB Coox 0.3 % [facility] Comment: Nonsmokers: 0.5-1.5% COHB Smokers: Variable, but usually less than 10% Toxic: 20-30% COHB Lethal: Greater than 60% COHB METHB Coox 1.4 <=1.5 % [facility] Source Coox Mixed Venous [facility] Blood 05/12/2023 12:3 0 AM EDT 05/12/2023 12:30 AM EDT Radha Hollins MD CHEMISTRY ORDERABL ES [facility] [place] [address] * XR Chest One View (05/11/2023 11:45 [...] have questions please contact the health childcare aide that requested your imaging first. ? Narrative [...] who have questions please contactthe health childcare aide that requested your imaging first. Electronically signed by: Will Rowe MD, [facility]([phone]), at 05/11/2023 11:57 PM Radha Hollins MD IMG DX ORDERABLES * (ABNORMAL) Lactate, whole blood, send to lab ([facility] (05/11/2023 7:40 PM EDT) Lactate WB 4.8(Critic al) 0.5 - 2.2 mmol/L [facility] Comment:Called by: [facility], Read back by: Magdalena Baires, Date/Time:05/11/23 19:54. Blood 05/11/2023 7:40 PM EDT 05/11/2023 7:49 PM EDT Narrative Resulting Agency Comment Spec In Lab Radha Hollins MD CHEMISTRY ORDERABL ES [facility] [place] [address] * Urine culture (05/11/2023 7:22 PM EDT) Pathologist [facility] Urine Culture 50,000-99,000 cfu/ml Normal mucosal herman Susceptibilit y testing not routinely performed for Coagulase Negative Staphylococcu s species and other Gram Positive organisms from urine. [facility] Clean Catch Urine 05/11/2023 7:22 PM EDT 05/11/2023 8:50 PM EDT Narrative Resulting Agency Comment Spec In Lab Brody Kaplan CANDLEMAKER MICROBIOLOGY - GENE RAL ORDERABLES [facility] [place] [address] * (ABNORMAL) Urinalysis Microscopic Exam (05/11/2023 7:22 PM EDT) [facility] RBC UA 2 0 - 4 /HPF [facility] WBC UA >100(H) 0 - 5 /HPF [facility] Bacteria UA Occasional (A) None /HPF [facility] Squam Epith UA 5(H) <=4 /HPF [facility] Hyaline Cast UA 3(H) 0 - 2 /LPF [facility] Clean Catch Urine 05/11/2023 7:22 PM EDT 05/11/2023 7:31 PM EDT Narrative Resulting Agency Comment Spec In Lab Brody Kaplan CANDLEMAKER URINE ORDERABLES [facility] [place] [address] * (ABNORMAL) Urinalysis with reflex Culture (05/11/2023 7:22 PM EDT) Pathologist [facility] Glucose UA Negative Negative mg/dL [facility] Protein UA Trace(A) Negative mg/dL [facility] Bilirubin UA Negative Negative mg/dL [facility] Comment: Clinical correlation required for positive Urine Bilirubin results as false positive may occur with some drugs and drug related products. If a false positive is suspected a serum total bilirubin should be considered if clinically indicated. Urobilinogen UA Normal Normal mg/dL [facility] pH UA 5.0 5.0 - 8.0 [facility] Blood UA Trace(A) Negative mg/dL [facility] Ketones UA Negative Negative mg/dL [facility] Nitrite UA Negative Negative [facility] Leukocytes UA Moderate(A) Negative [facility] Appearance UA Cloudy(A) Clear [facility] Spec [place] UA >=1.030(A) 1.005 - 1.030 [facility] Color UA Yellow Yellow [facility] Culture Reflexed Yes [facility] Clean Catch Urine 05/11/2023 7:22 PM EDT 05/11/2023 7:31 PM EDT Narrative Resulting Agency Comment Spec In Lab Brody Kaplan APRN URINE ORDERABLES Performing Organization Address City/[facility]/ZIP Co de Phone Number [facility] [place] [address] * (ABNORMAL) pro-Brain Natriuretic Peptide (05/11/2023 7:11 PM EDT) ProBNP >35,000(H) <=124 pg/mL [facility] Blood 05/11/2023 7:11 PM EDT 05/11/2023 7:26 PM EDT Narrative Resulting Agency Comment Spec In Lab Radha Hollins MD CHEMISTRY ORDERABL ES Performing Organization Address City/[facility]/ZIP Co de Phone Number [facility] [place] [address] * (ABNORMAL) Lactate, whole blood, send to lab ([facility]) (05/11/2023 2:47 PM EDT) Lactate WB 2.9(H) 0.5 - 2.2 mmol/L [facility] Blood 05/11/2023 2:47 PM EDT 05/11/2023 2:53 PM EDT Narrative Resulting Agency Comment Spec In Lab Juan Luis Gonzalez MD CHEMISTRY ORDERABLES [facility] [place] [address] * (ABNORMAL) CT Angiogram Abdomen & Pelvis [...] have questions please contact the health childcare aide that requested your imaging first. ? Narrative [...] have questions please contact the health childcare aide that requested your imaging first. ? Electronically signed by: Cullen Narayanan MD, [facility] ([phone]), at 05/11/2023 4:37 PM Narrative 05/11/2023 4:37 [...] 610 mm2 Circumference: 88 mm Calcification: Mild Bfqcuik-gb-epxibitt height: Left: 6.2 mm Right: 5.8 mm THORACIC AORTA Description: Normal course and caliber. ??Mild diffuse atherosclerotic changes. No acute aortopathy noted. Banker Mason dimensions: Aortic root: 27.6 mm Max ascending [...] 610 mm2 Circumference: 88 mm Calcification: Mild Wnzcoxa-ip-snrjsxkz height: Left: 6.2 mm Right: 5.8 mm THORACIC AORTA Description: Normal course and caliber. Mild diffuse atheroscleroticchanges. No acute aortopathy noted. Banker Mason dimensions: Aortic root: 27.6 mm Max ascending [...] who have questions please contactthe health childcare aide that requested your imaging first. Electronically signed by: Cullen Narayanan MD, [facility]([phone]), at 05/11/2023 4:37 PM Antelmo Sharma MD IMG CT ORDERABLES * (ABNORMAL) Lactate, whole blood, send to lab ([facility]) (05/11/2023 9:29 AM EDT) Pathologist [facility] Lactate WB 3.1(H) 0.5 - 2.2 mmol/L [facility] Blood 05/11/2023 9:29 AM EDT 05/11/2023 9:38 AM EDT Narrative Resulting Agency Comment Spec In Lab Juan Luis Gonzalez MD CHEMISTRY ORDERABLES Performing Organization Address City/State/[facility] Co de Phone Number [facility] [place] [phone] * (ABNORMAL) Differential, Automated (05/11/2023 4:42 AM EDT) [facility] Neutrophils % 78.1 % [facility] Neutr Abs (ANC) 5.46 1.70 - 6.10 x10(3)/mc L [facility] Lymphocytes % 10.6 % [facility] Lymphocytes Abs 0.7(L) 0.9 - 3.2 x10(3)/mc L [facility] Monocytes % 9.6 % [facility] Monocyte Abs 0.7 0.3 - 0.9 x10(3)/mc L [facility] Eosinophils % 0.0 % [facility] Eosinophils Abs 0.0 0.0 - 0.4 x10(3)/mc L [facility] Basophils % 0.4 % [facility] Basophils Abs 0.0 0.0 - 0.1 x10(3)/mc L [facility] Immature Gran % 1.30 % [facility] Comment: Immature granulocytes(IG's)percentage and absolute count will include metamyelocytes, myelocytes, and promyelocytes. Blood smears from CBCs yielding IG's will be scanned manually for concordance. If this scan disagrees with the automated IG or if promyelocytes are noted, a manual differential will be performed. Amanda Gran Abs 0.09(H) 0.00 - 0.04 x10(3)/ L [facility] Blood 05/11/2023 4:42 AM EDT 05/11/2023 4:49 AM EDT Narrative Resulting Agency Comment Spec In Lab Klaudia Reid MD HEMATOLOGY OR DERABLES [facility] [place] [address] * (ABNORMAL) Hemogram (05/11/2023 4:42 AM EDT) WBC 7.0 4.0 - 9.5 x10(3)/[facility] RBC 3.44(L) 4.00 - 5.21 x10(6)/[facility] Hemoglobin 11.1(L) 11.7 - 15.5 g/dL [facility] Hematocrit 32.7(L) 35.7 - 45.8 % [facility] MCV 95.1(H) 82.6 - 94.4 fL [facility] MCH 32.3(H) 27.1 - 32.0 pg [facility] MCHC 33.9 31.7 - 35.0 g/dL [facility] Platelets 165 145 - 357 x10(3)/[facility] RDWSD 43.1 37.0 - 46.0 [facility] RDWCV 12.7 11.5 - 14.1 % [facility] MPV 10.1 7.6 - 12.9 [facility] nRBC % Auto 0.0 % [facility] nRBC Abs Auto 0.000 0.000 - 0.000 x10(3)/mcL [facility] Blood 05/11/2023 4:42 AM EDT 05/11/2023 4:49 AM EDT Narrative Resulting Agency Comment Spec In Lab Klaudia Reid MD HEMATOLOGY OR DERABLES Performing Organization Address [facility] Co de Phone Number [facility] [place] [address] * Heparin (unfractionated) Level (05/11/2023 4:42 AM EDT) Heparin UFH Level 0.46 IU/mL [facility] Comment: Heparin (anti-Xa) levels should [...] MD HEMATOLOGY ORDERAB LES Performing Organization Address [facility] Co de Phone Number [facility] [place] [address] * (ABNORMAL) Comprehensive metabolic panel (non-fasting) (05/11/2023 4:42 AM EDT) Glucose Lvl 143 65 - 199 mg/dL [facility] Comment:Diabetes: >=200 mg/d L plus symptoms BUN 42(H) 8 - 18 mg/dL [facility] Creatinine 1.24(H) 0.70 - 1.20 mg/dL [facility] Sodium 134(L) 135 - 145 mmol/L [facility] Potassium 4.6 3.5 - 5.0 mmol/L [facility] Comment: Please note: ??Patients with WBC >100,000 may have falsely elevated Potassium levels. ??For accurate Potassium quantification in these patients send serum separator tube (gold top) for subsequent determinations. ??Contact the Clinical Chemistry Laboratory if there are any questions. Chloride 99 98 - 107 mmol/L [facility] CO2 14(L) 22 - 31 mmol/L [facility] Anion Gap 21(H) 5 - 15 mmol/L [facility] Calcium 9.6 8.5 - 10.5 mg/dL [facility] Total Protein 7.2 6.1 - 8.0 g/dL [facility] Albumin 3.7 3.2 - 5.2 g/dL [facility] AST 144(H) 0 - 30 unit/L [facility] Comment:result rechecked-ssc ALT 130(H) 0 - 30 unit/L [facility] Comment:result rechecked-ssc Alk Phos 72 35 - 105 unit/L [facility] Total Bilirubin 0.8 0.2 - 1.3 mg/dL [facility] Estimated GFR 48(L) >=60 mL/min/1. 73 m?? [facility] Comment: This patient's estimated GFR [...] MD CHEMISTRY ORDERABL ES Performing Organization Address [facility] Co de Phone Number [facility] [place] [address] * EKG 12 Lead (05/10/2023 1:16 PM EDT) Ventricular rate 118 BPM MUSE SYSTEM Atrial Rate 118 BPM MUSE SYSTEM P-R Interval 152 ms MUSE SYSTEM QRS Duration 104 ms MUSE SYSTEM Q-T Interval 316 ms MUSE SYSTEM QTC Calculated (Bezet) 442 ms MUSE SYSTEM Calculated P Douglas 29 degrees MUSE SYSTEM Calculated R Douglas 18 degrees MUSE SYSTEM Calculated T Douglas -173 degrees MUSE SYSTEM INTERPRETATION Sinus tachycardia [...] Anterior leads Confirmed by MD Villareal Danette ([id number]) on 05/10/2023 8:47:46 PM MUSE SYSTEM 05/10/2023 1:16 PM EDT 05/10/2023 8:47 PM EDT Juan Luis Gonzalez MD ECG ORDERABLES Performing Organization Address [facility] Co de Phone Number MUSE SYSTEM * Lactate, whole blood, send to lab ([facility]) (05/10/2023 11:52 AM EDT) Lactate WB 1.8 0.5 - 2.2 mmol/L [facility] Blood 05/10/2023 11:5 2 AM EDT 05/10/2023 12:13 PM EDT Narrative Resulting Agency Comment Spec In Lab Juan Luis Gonzalez MD CHEMISTRY ORDERABLES [facility] [place] [address] * XR Chest One View (05/10/2023 11:16 [...] have questions please contact the health childcare aide that requested your imaging first. ? Electronically signed by: ALIX RUVALCABA MD, [facility] ([phone]), at 05/10/2023 1:25 PM Narrative 05/10/2023 1:25 [...] who have questions please contactthe health childcare aide that requested your imaging first. Electronically signed by: ALIX RUVALCABA MD, [facility]([phone]), at 05/10/2023 1:25 PM Juan Luis Gonzalez MD IMG DX ORDERABLES * EKG 12 Lead (05/10/2023 7:59 AM EDT) Ventricular rate 115 BPM MUSE SYSTEM Atrial Rate 115 BPM MUSE SYSTEM P-R Interval 142 ms MUSE SYSTEM QRS Duration 102 ms MUSE SYSTEM Q-T Interval 322 ms MUSE SYSTEM QTC Calculated (Bezet) 445 ms MUSE SYSTEM Calculated P Douglas 36 degrees MUSE SYSTEM Calculated R Douglas 28 degrees MUSE SYSTEM Calculated T Douglas -119 degrees MUSE SYSTEM INTERPRETATION Sinus tachycardia with frequent Premature ventricular complexes and Fusion complexes ST & T wave abnormality, consider lateral ischemia Abnormal ECG When compared with ECG of 08-MAY-2023 15:51, No significant change was found I personally reviewed the tracing and edited the fellows interpretation Confirmed by fellow MD Anitha, Carissa ([id number]) on 05/11/2023 6:19:54 AM Confirmed by MD Ugalde Hannah ([id number]) on 05/11/2023 3:18:56 PM MUSE SYSTEM 05/10/2023 7:59 AM EDT 05/11/2023 3:18 PM EDT Radha Hollins MD ECG ORDERABLES MUSE SYSTEM * (ABNORMAL) Differential, Automated (05/10/2023 2:28 AM EDT) Neutrophils % 77.1 % [facility] Neutr Abs (ANC) 4.01 1.70 - 6.10 x10(3)/[facility] Lymphocytes % 14.0 % [facility] Lymphocytes Abs 0.7(L) 0.9 - 3.2 x10(3)/[facility] Monocytes % 7.7 % [facility] Monocyte Abs 0.4 0.3 - 0.9 x10(3)/[facility] Eosinophils % 0.4 % [facility] Eosinophils Abs 0.0 0.0 - 0.4 x10(3)/[facility] Basophils % 0.4 % [facility] Basophils Abs 0.0 0.0 - 0.1 x10(3)/[facility] Immature Gran % 0.40 % [facility] Comment: Immature granulocytes(IG's)percentage and absolute count will include metamyelocytes, myelocytes, and promyelocytes. Blood smears from CBCs yielding IG's will be scanned manually for concordance. If this scan disagrees with the automated IG or if promyelocytes are noted, a manual differential will be performed. Amanda Gran Abs 0.02 0.00 - 0.04 x10(3)/[facility] Blood 05/10/2023 2:28 AM EDT 05/10/2023 2:57 AM EDT Narrative Resulting Agency Comment Spec In Lab Klaudia Reid MD HEMATOLOGY OR DERABLES [facility] [place] [address] * (ABNORMAL) Hemogram (05/10/2023 2:28 AM EDT) WBC 5.2 4.0 - 9.5 x10(3)/[facility] RBC 3.11(L) 4.00 - 5.21 x10(6)/[facility] Hemoglobin 10.2(L) 11.7 - 15.5 g/dL [facility] Hematocrit 30.2(L) 35.7 - 45.8 % [facility] MCV 97.1(H) 82.6 - 94.4 fL [facility] MCH 32.8(H) 27.1 - 32.0 pg [facility] MCHC 33.8 31.7 - 35.0 g/dL [facility] Platelets 151 145 - 357 x10(3)/[facility] RDWSD 44.9 37.0 - 46.0 [facility] RDWCV 12.8 11.5 - 14.1 % [facility] MPV 9.8 7.6 - 12.9 [facility] nRBC % Auto 0.0 % [facility] nRBC Abs Auto 0.000 0.000 - 0.000 x10(3)/[facility] Blood 05/10/2023 2:28 AM EDT 05/10/2023 2:57 AM EDT Narrative Resulting Agency Comment Spec In Lab Klaudia Reid MD HEMATOLOGY OR DERABLES Performing Organization Address City/State/[facility] Co de Phone Number [facility] [place] [address] * (ABNORMAL) Comprehensive metabolic panel (non-fasting) (05/10/2023 2:28 AM EDT) Glucose Lvl 100 65 - 199 mg/dL [facility] Comment:Diabetes: >=200 mg/d L plus symptoms BUN 30(H) 8 - 18 mg/dL [facility] Creatinine 0.90 0.70 - 1.20 mg/dL [facility] Sodium 134(L) 135 - 145 mmol/L [facility] Potassium 4.1 3.5 - 5.0 mmol/L [facility] Comment: Please note: ??Patients with WBC >100,000 may have falsely elevated Potassium levels. ??For accurate Potassium quantification in these patients send serum separator tube (gold top) for subsequent determinations. ??Contact the Clinical Chemistry Laboratory if there are any questions. Chloride 102 98 - 107 mmol/L [facility] CO2 20(L) 22 - 31 mmol/L [facility] Anion Gap 12 5 - 15 mmol/L [facility] Calcium 9.3 8.5 - 10.5 mg/dL [facility] Total Protein 6.4 6.1 - 8.0 g/dL [facility] Albumin 3.7 3.2 - 5.2 g/dL [facility] AST 24 0 - 30 unit/L [facility] ALT 14 0 - 30 unit/L [facility] Alk Phos 70 35 - 105 unit/L [facility] Total Bilirubin 0.5 0.2 - 1.3 mg/dL [facility] Estimated GFR 70 >=60 mL/min/1. 73 m?? [facility] Comment: This patient's estimated GFR [...] Lab Radha Hollins MD CHEMISTRY ORDERABL ES [facility] [place] [address] * Heparin (unfractionated) Level (05/10/2023 2:28 AM EDT) [facility] Heparin UFH Level 0.37 IU/mL [facility] Comment: Heparin (anti-Xa) levels should [...] Lab Radha Hollins MD HEMATOLOGY ORDERAB LES [facility] [place] [address] * (ABNORMAL) Differential, Automated (05/09/2023 4:00 AM EDT) [facility] Neutrophils % 81.7 % [facility] Neutr Abs (ANC) 5.26 1.70 - 6.10 x10(3)/mc L [facility] Lymphocytes % 10.7 % [facility] Lymphocytes Abs 0.7(L) 0.9 - 3.2 x10(3)/mc L [facility] Monocytes % 6.5 % [facility] Monocyte Abs 0.4 0.3 - 0.9 x10(3)/mc L [facility] Eosinophils % 0.5 % [facility] Eosinophils Abs 0.0 0.0 - 0.4 x10(3)/mc L [facility] Basophils % 0.3 % [facility] Basophils Abs 0.0 0.0 - 0.1 x10(3)/[facility] Immature Gran % 0.30 % [facility] Comment: Immature granulocytes(IG's)percentage and absolute count will include metamyelocytes, myelocytes, and promyelocytes. Blood smears from CBCs yielding IG's will be scanned manually for concordance. If this scan disagrees with the automated IG or if promyelocytes are noted, a manual differential will be performed. Amanda Gran Abs 0.02 0.00 - 0.04 x10(3)/[facility] Blood 05/09/2023 4:00 AM EDT 05/09/2023 4:19 AM EDT Narrative Resulting Agency Comment Spec In Lab Klaudia Reid MD HEMATOLOGY OR DERABLES Performing Organization Address City/State/[facility] Co de Phone Number [facility] [place] [address] * (ABNORMAL) Hemogram (05/09/2023 4:00 AM EDT) WBC 6.4 4.0 - 9.5 x10(3)/[facility] RBC 3.15(L) 4.00 - 5.21 x10(6)/[facility] Hemoglobin 10.2(L) 11.7 - 15.5 g/dL [facility] Hematocrit 30.3(L) 35.7 - 45.8 % [facility] MCV 96.2(H) 82.6 - 94.4 fL [facility] MCH 32.4(H) 27.1 - 32.0 pg [facility] MCHC 33.7 31.7 - 35.0 g/dL [facility] Platelets 151 145 - 357 x10(3)/[facility] RDWSD 44.7 37.0 - 46.0 fL [facility] RDWCV 12.8 11.5 - 14.1 % [facility] MPV 9.4 7.6 - 12.9 fL [facility] nRBC % Auto 0.0 % [facility] nRBC Abs Auto 0.000 0.000 - 0.000 x10(3)/mcL [facility] Blood 05/09/2023 4:00 AM EDT 05/09/2023 4:19 AM EDT Narrative Resulting Agency Comment Spec In Lab Klaudia Reid MD HEMATOLOGY OR DERABLES Performing Organization Address [facility]/[place] [address] * Heparin (unfractionated) Level (05/09/2023 4:00 AM EDT) Heparin UFH Level 0.47 IU/mL [facility] Comment: Heparin (anti-Xa) levels should [...] MD HEMATOLOGY ORDERAB LES Performing Organization Address [facility]/ZIP Co de Phone Number [facility] [place] [address] * (ABNORMAL) Comprehensive metabolic panel (non-fasting) (05/09/2023 4:00 AM EDT) Glucose Lvl 108 65 - 199 mg/dL [facility] Comment:Diabetes: >=200 mg/d L plus symptoms BUN 31(H) 8 - 18 mg/dL [facility] Creatinine 1.03 0.70 - 1.20 mg/dL [facility] Sodium 137 135 - 145 mmol/L [facility] Potassium 4.4 3.5 - 5.0 mmol/L [facility] Comment: Please note: ??Patients with WBC >100,000 may have falsely elevated Potassium levels. ??For accurate Potassium quantification in these patients send serum separator tube (gold top) for subsequent determinations. ??Contact the Clinical Chemistry Laboratory if there are any questions. Chloride 102 98 - 107 mmol/L [facility] CO2 20(L) 22 - 31 mmol/L [facility] Anion Gap 15 5 - 15 mmol/L [facility] Calcium 9.3 8.5 - 10.5 mg/dL [facility] Total Protein 6.6 6.1 - 8.0 g/dL [facility] Albumin 3.8 3.2 - 5.2 g/dL [facility] AST 32(H) 0 - 30 unit/L [facility] ALT 18 0 - 30 unit/L [facility] Alk Phos 78 35 - 105 unit/L [facility] Total Bilirubin 0.5 0.2 - 1.3 mg/dL [facility] Estimated GFR 60 >=60 mL/min/1. 73 m?? [facility] Comment: This patient's estimated GFR [...] MD CHEMISTRY ORDERABL ES Performing Organization Address City/[facility]/ZIP Co de Phone Number [facility] [place] [address] * (ABNORMAL) pro-Brain Natriuretic Peptide (05/08/2023 4:00 PM EDT) ProBNP 25,503(H) <=124 pg/mL [facility] Blood Venous Draw / Unknown 05/08/2023 4:00 PM EDT 05/08/2023 4:25 PM EDT Narrative Resulting Agency Comment Spec In Lab Juan Luis Gonzalez MD CHEMISTRY ORDERABLES Performing Organization Address City/[facility]/ZIP Co de Phone Number [facility] [place] [address] * Magnesium (05/08/2023 4:00 PM EDT) Magnesium 0.82 0.69 - 1.07 mmol/L [facility] Blood 05/08/2023 4:00 PM EDT 05/08/2023 4:06 PM EDT Narrative Resulting Agency Comment Spec In Lab Enrique Chua MD CHEMISTRY ORDERABLES Performing Organization Address City/[facility]/ZIP Co de Phone Number [facility] [place] [address] * Potassium (05/08/2023 4:00 PM EDT) Potassium 3.9 3.5 - 5.0 mmol/L [facility] Comment: Please note: ??Patients with [...] MD CHEMISTRY ORDERABL ES Performing Organization Address [facility] Co de Phone Number [facility] [place] [address] * Heparin (unfractionated) Level (05/08/2023 4:00 PM EDT) Pathologist [facility] Heparin UFH Level 0.43 IU/mL [facility] Comment: Heparin (anti-Xa) levels should [...] MD HEMATOLOGY ORDERAB LES Performing Organization Address [facility]/ZIP Co de Phone Number [facility] [place] [address] * EKG 12 Lead (05/08/2023 3:51 PM EDT) Ventricular rate 98 BPM MUSE SYSTEM Atrial Rate 98 BPM MUSE SYSTEM P-R Interval 150 ms MUSE SYSTEM QRS Duration 102 ms MUSE SYSTEM Q-T Interval 358 ms MUSE SYSTEM QTC Calculated (Bezet) 457 ms MUSE SYSTEM Calculated P Douglas 38 degrees MUSE SYSTEM Calculated R Douglas 48 degrees MUSE SYSTEM Calculated T Douglas -112 degrees MUSE SYSTEM INTERPRETATION Sinus rhythm with frequent and consecutive Premature ventricular and fusion complexes Septal infarct , age undetermined ST & T wave abnormality, consider anterolateral ischemia Abnormal ECG When compared with ECG of 09-NOV-2022 11:17, T wave inversion now evident in Anterolateral leads Confirmed by MD Harshil, Enrique Bell ([id number]) on 05/10/2023 8:11:46 AM MUSE SYSTEM 05/08/2023 3:51 PM EDT 05/10/2023 8:11 AM EDT Radha Hollins MD ECG ORDERABLES MUSE SYSTEM * (ABNORMAL) Differential, Automated (05/08/2023 11:38 AM EDT) Neutrophils % 71.3 % [facility] Neutr Abs (ANC) 2.91 1.70 - 6.10 x10(3)/mc L [facility] Lymphocytes % 19.1 % [facility] Lymphocytes Abs 0.8(L) 0.9 - 3.2 x10(3)/mc L [facility] Monocytes % 9.0 % [facility] Monocyte Abs 0.4 0.3 - 0.9 x10(3)/mc L [facility] Eosinophils % 0.2 % [facility] Eosinophils Abs 0.0 0.0 - 0.4 x10(3)/mc L [facility] Basophils % 0.2 % [facility] Basophils Abs 0.0 0.0 - 0.1 x10(3)/mc L [facility] Immature Gran % 0.20 % [facility] Comment: Immature granulocytes(IG's)percentage and absolute count will include metamyelocytes, myelocytes, and promyelocytes. Blood smears from CBCs yielding IG's will be scanned manually for concordance. If this scan disagrees with the automated IG or if promyelocytes are noted, a manual differential will be performed. Amanda Gran Abs 0.01 0.00 - 0.04 x10(3)/mc L [facility] Blood 05/08/2023 11:3 8 AM EDT 05/08/2023 11:44 AM EDT Narrative Resulting Agency Comment Spec In Lab Lincoln Sal MD HEMATOLOGY ORDERA BLES [facility] [place] [address] * (ABNORMAL) Hemogram (05/08/2023 11:38 AM EDT) WBC 4.1 4.0 - 9.5 x10(3)/[facility] RBC 3.05(L) 4.00 - 5.21 x10(6)/[facility] Hemoglobin 10.2(L) 11.7 - 15.5 g/dL [facility] Hematocrit 29.6(L) 35.7 - 45.8 % [facility] MCV 97.0(H) 82.6 - 94.4 fL [facility] MCH 33.4(H) 27.1 - 32.0 pg [facility] MCHC 34.5 31.7 - 35.0 g/dL [facility] Platelets 136(L) 145 - 357 x10(3)/[facility] RDWSD 44.3 37.0 - 46.0 [facility] RDWCV 12.6 11.5 - 14.1 % [facility] MPV 9.4 7.6 - 12.9 [facility] nRBC % Auto 0.0 % [facility] nRBC Abs Auto 0.000 0.000 - 0.000 x10(3)/[facility] Blood 05/08/2023 11:3 8 AM EDT 05/08/2023 11:44 AM EDT Narrative Resulting Agency Comment Spec In Lab Lincoln Sal MD HEMATOLOGY ORDERA BLES Performing Organization Address [facility] Co de Phone Number [facility] [place] [address] * TSH (05/08/2023 11:38 AM EDT) TSH 1.27 0.27 - 4.20 mcIU/mL [facility] Comment: Reference Interval (mcIU/mL): Females: ??First Trimester: 0.23-3.88 ??Second Trimester: 0.22-3.90 ??Third Trimester: 0.44-4.66 Blood 05/08/2023 11:3 8 AM EDT 05/08/2023 11:44 AM EDT Narrative Resulting Agency Comment Spec In Lab Enrique Chua MD CHEMISTRY ORDERABLES Performing Organization Address [facility] de Phone Number [facility] [place] [address] * (ABNORMAL) Phosphorus (05/08/2023 11:38 AM EDT) Phosphorus 4.7(H) 2.5 - 4.5 mg/dL [facility] Blood 05/08/2023 11:3 8 AM EDT 05/08/2023 11:44 AM EDT Narrative Resulting Agency Comment Spec In Lab Enrique Chua MD CHEMISTRY ORDERABLES Performing Organization Address [facility] Co de Phone Number [facility] [place] [address] * Magnesium (05/08/2023 11:38 AM EDT) Magnesium 0.76 0.69 - 1.07 mmol/L [facility] Blood 05/08/2023 11:3 8 AM EDT 05/08/2023 11:44 AM EDT Narrative Resulting Agency Comment Spec In Lab Enrique Chua MD CHEMISTRY ORDERABLES [facility] [place] [address] * (ABNORMAL) Basic Metabolic Panel (non-fasting) (05/08/2023 11:38 AM EDT) Glucose Lvl 97 65 - 199 mg/dL [facility] Comment:Diabetes: >=200 mg/d L plus symptoms BUN 27(H) 8 - 18 mg/dL [facility] Creatinine 1.02 0.70 - 1.20 mg/dL [facility] Sodium 139 135 - 145 mmol/L [facility] Potassium 4.2 3.5 - 5.0 mmol/L [facility] Comment: Please note: ??Patients with WBC >100,000 may have falsely elevated Potassium levels. ??For accurate Potassium quantification in these patients send serum separator tube (gold top) for subsequent determinations. ??Contact the Clinical Chemistry Laboratory if there are any questions. Chloride 105 98 - 107 mmol/L [facility] CO2 20(L) 22 - 31 mmol/L [facility] Anion Gap 14 5 - 15 mmol/L [facility] Calcium 9.4 8.5 - 10.5 mg/dL [facility] Estimated GFR 60 >=60 mL/min/1. 73 m?? [facility] Comment: This patient's estimated GFR [...] Enrique Chua MD CHEMISTRY ORDERABLES MARIA LUZ [facility] [place] [address] * ECHO COMPLETE (05/08/2023 11:02 AM EDT) EF 25 HEARTLAB SYSTEM Anatomical Region Laterality Modality Cardiac Other 05/08/2023 10:0 3 AM EDT Narrative 05/08/2023 11:51 AM EDT ? Echocardiogram Report Name: PURNIMA THACKER ?Study Date: 05/08/2023 10:03 AMBP: 92/64 mmHg ? Patient Location: [facility]CC^CV29^A : 1955 ? Height: 155 cm ? Account: [id number] Age: 67 yrs ? Weight: 78 kg Gender: Female ?BSA: 1.8 m2 Ordering Physician: ENRIQUE CHUA Referring Physician: MARIO ALBERTO CHIN Performed By: CHUCKIE Canchola Reason For Study: SAVR Stenosis Exam Location: [facility]. Interpretation Summary -Left ventricle is severely dilated [...] worsening stenosis. Mitral regurgitation is similar. Procedure Complete-[id number]. Satisfactory quality. There is normal sinus rhythm. [...] Study Date: 0:03 AMBP: 92/64 mmHg Patient Location:[facility]^CV29^A : 1955 Height: 155 cm Account: [id number] Age: 67 yrs Weight: 78 kg Gender: Female BSA: 1.8 m2 Ordering Physician: ENRIQUE CHUA Referring Physician: MARIO ALBERTO CHIN Performed By: CHUCKIE Canchola Reason For Study: SAVR Stenosis Exam Location: [facility]. Interpretation Summary -Left ventricle is severely dilated (LVEDV index 81 mL/m2). Leftventricular systolic function is severely reduced. The left ventricular ejectionfraction is 25% by Saumel's biplane. There is apical and anteroseptal akinesis [...] suggestsworsening stenosis. Mitral regurgitation is similar. Procedure Complete-[id number]. Satisfactory quality. There is normal sinus rhythm. 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 Mild coronary artery disease by [facility] 11/09/2022 Mixed connective tissue disease Other specified [...] ejection fraction Mild coronary artery disease by [facility] 11/09/2022 Stenosis of prosthetic aortic valve (Bovine [...] Minutes 1758 (New Bag - Provider: Gabino aClhoun RN)1958 (Stopped - Provider: Favian Mckeon RN) [...] post-op day 1 in the AM Give [place] if unable to take PO, Routine Group [...] Routine documented in this encounter Care Teams Blender Relationship Specialty Start Date End Date Magdalena Acosta MD [address] [place] [address] PCP - General Family Medicine 02/05/23 documented as of this encounter
--- OUTSIDE RECORDS SUMMARY | 2024-02-17 14:25 | XMS_ITS | Encounter Summary ---
[place] [address] Care Team Providers Care Resident Associate Name Role Phone Magdalena Acosta MD Primary Care Provider [phone] Reason for Visit * Reason Comments Skin Lesion Encounter Details Date Type Department Care Team (Late st Contact Info) Description 04/20/2023 10:00 AM EDT Office Visit Dermatology at [address] [address] Marek Bonilla MD [address] [facility] [place] [address] Seborrheic keratosis Social History Tobacco Use Types [...] cutaneous and ocular 3. Previously told by food counter attendant that she had corneal tears from [...] 4:15 PM EDT Office Visit Dermatology at [place] [address] [place] [address] Marek Bonilla MD [address] [facility] [place] [address] 06/05/2024 11:30 AM EST Office [place] [address] [facility] [place] [address] documented as of this encounter Visit Diagnoses Diagnosis Seborrheic keratosis Other seborrheic keratosis documented in this encounter Care Teams Resident Associate Relationship Specialty Start Date End Date Magdalena Acosta MD [address] [place] [address] PCP - General Family Medicine 02/05/23 documented as of this encounter
--- OUTSIDE RECORDS SUMMARY | 2024-02-17 14:25 | XMS_ITS | Encounter Summary ---
Author Organization [facility] [place] [address] Care Team Providers Care Recreation Clerk Name Role Phone Magdalena Acosta MD [...] PM EDT Office Visit Dermatology at [address] [address] Marek Bonilla MD [address] [place] [address] [place] [address] 06/05/2024 11:30 AM EST Office [place] [address] Magdalena Peralta MD [facility] [place] [address] documented as of this encounter Visit Diagnoses Not on filedocumented in this encounter Care Teams Recreation Clerk Relationship Specialty Start Date End Date Magdalena Acosta MD [address] [place] [address] PCP - General Family Medicine 02/05/23 documented as of this encounter
--- OUTSIDE RECORDS SUMMARY | 2024-02-17 14:26 | XMS_ITS | Encounter Summary ---
Author Organization [facility] Address [facility] [place] [address] Care Team Providers Care Mandolin Repair Person Name Role Phone Deborah Quiroga APRN Primary Care Provider [phone] Reason for Visit * Consultation (Routine) - Closed Specialty Diagnoses / Procedures Referred By Contkrystle t Referred To Contact Rheumatology Diagnoses Positive FRANCISCO (antinuclear antibody) Arthralgia, unspecified joint Sandy Wu APRN [address] [place] [address] [facility] Rheumatology [address] [place] [address] Referral ID Status Reason Start Date Expiration Date V isits Requested Visits Authorized [id number] Closed Consult, Test & Treat PCP Updated and/or Approved 01/01/2022 01/01/2023 6 6 Encounter Details Date Type Department Care Team (Latest Contact Info) Description 01/20/2022 10:00 AM EDT Office [place] [address] Raymond Loredo MD [facility] [place] [address] Rosacea; Raynaud's phenomenon without gangrene; [...] can be done locally or here at [facility] documented in this encounter Progress Notes * [...] over radiocarpal or ulnocarpal joints. Hands: Normal wardrobe assistant and claw. SJC/TJC 0/0. Hips: Full motion, [...] can be done locally or here at [facility] that the current time is not particularly interested it seems Raymond Loredo MD documented in this encounter Plan of Treatment Upcoming Encounters Date Type Department Care Team (Late st Contact Info) Description 02/22/2024 4:15 PM EDT Office Visit Dermatology at [place] [address] [place] [address] Marek Bonilla MD [address] [facility] [place] [address] 06/05/2024 11:30 AM EST Office [place] [address] Magdalena Peralta MD [facility] [place] [address] Scheduled Referrals Name Type Priority Associated Diagnoses [...] syndrome documented in this encounter Care Teams Mandolin Repair Person Relationship Specialty Start Date End Date Deborah Quiroga APRN PCP - General Family Medicine 03/24/16 02/04/23 documented as of this encounter
--- OUTSIDE RECORDS SUMMARY | 2024-02-17 14:26 | XMS_ITS | Encounter Summary ---
[place] [address] Care Team Providers Care Booking Manager Name Role Phone Deborah Quiroga APRN Primary Care Provider [phone] Encounter Details Date Type Department Care Team (Late st Contact Info) Description 06/05/2021 Interpretation Only [address] [phone] Deborah Quiroga APRN [address] [address] Social History Tobacco Use Types Packs/Day Years [...] PM EDT Office Visit Dermatology at [address] [place] [address] Marek Bonilla MD [address] [facility] [place] [address] 06/05/2024 11:30 AM EST Office [place] [address] Magdalena Peralta MD [facility] [place] [address] documented as of this encounter Procedures Procedure Name Priority Date/Time Associated Diagnosis Comments MAMMO SCREENING CAD AND CATRACHITO BILATERAL Routine 06/05/2021 11:42 AM EDT documented in this encounter Results * Mammo Screening Cad and Catrachito Bilateral (06/05/2021 11:42 AM EDT) PT CLASS O DH RAD ADMITDTTM DH RAD PT DH RAD MD INFO [phone]^EVERET T^DEBORAH^E DH RAD EXAM DESC MADDSCTO^BREAST SCREEN [...] who have questions please contact the health morning caregiver that requested your imaging first. ? Electronically signed by: Rocael Villatoro MD, [facility] ([phone]), at 06/05/2021 1:27 PM Narrative 06/05/2021 1:27 [...] patients who have questions please contactthe health morning caregiver that requested your imaging first. Electronically signed by: Rocael Villatoro MD, [facility]([phone]), at 06/05/2021 1:27 PM Deborah Quiroga APRN IMG MAMMO ORDERABLE S documented in this encounter Visit Diagnoses Not on filedocumented in this encounter Care Teams Booking Manager Relationship Specialty Start Date End Date Deborah Quiroga APRN PCP - General Family Medicine 03/24/16 02/04/23 documented as of this encounter
--- OUTSIDE RECORDS SUMMARY | 2024-02-17 14:26 | XMS_ITS | Encounter Summary ---
Author Organization [facility] [place] [address] Care Team Providers Care Leaf Conditioner Name Role Phone Magdalena Acosta MD Primary Care Provider [phone] Encounter Details Date Type Department Care Team (Late st Contact Info) Description 03/29/2023 Orders Only Cardiology at [address] [phone] Ranjan Delgado MD [facility] [place] [address] Severe aortic stenosis (Primary Dx) Social History [...] PM EDT Office Visit Dermatology at [address] [place] [phone] Marek Bonilla MD [address] [facility] DERMATOLOGY [place], [place] [address] 06/05/2024 11:30 AM EST Office [place] [address] Magdalena Peralta MD [facility] [place] [address] Scheduled Orders Name Type Priority Associated Diagnoses [...] disorders documented in this encounter Care Teams Leaf Conditioner Relationship Specialty Start Date End Date Magdalena Acosta MD [address] [place] [address] PCP - General Family Medicine 02/05/23 documented as of this encounter
--- OUTSIDE RECORDS SUMMARY | 2024-02-17 14:26 | XMS_ITS | Encounter Summary ---
Author Organization [facility] [place] [address] Care Team Providers Care Acid Concentrator Name Role Phone Magdalena Acosta MD Primary Care Provider [phone] Encounter Details Date Type Department Care Team [...] PM EDT Office Visit Dermatology at [address] [address] Marek Bonilla MD [address] [place] [address] [place] [address] 06/05/2024 11:30 AM EST Office [place] [address] Magdalena Peralta MD [facility] [place] [address] documented as of this encounter Visit Diagnoses Not on filedocumented in this encounter Care Teams Acid Concentrator Relationship Specialty Start Date End Date Magdalena Acosta MD [address] [place] [address] PCP - General Family Medicine 02/05/23 documented as of this encounter
--- OUTSIDE RECORDS SUMMARY | 2024-02-17 14:26 | XMS_ITS | Encounter Summary ---
Author Organization [facility] [place] [address] Care Team Providers Care Node Js Developer Name Role Phone Junaid Deborah Shields APRN Primary Care Provider [phone] Encounter Details Date Type Department Care Team (Late st Contact Info) Description 11/09/2022 11:30 AM EDT - 11/09/2022 12:30 PM EDT Surgery [employer] [place] [address] Nitesh Escobedo MD [facility] [place] [address] CARDIAC CATHETERIZATION Social History Tobacco Use Types [...] Center 02/05/2023 2:30 PM Marek Bonilla MD [facility] New Medications to be Picked Up None For questions regarding this document or issues relating to this hospitalization on the Medical Service, please contact your inpatient physician through the [facility] Quality Assurance Supervisor Chassis . Issues afterhours and on weekends will be handled by the Hospitalist staff on-call. * Attachments The following attachments cannot be sent through Care Everywhere. * Coronary Angiogram: Post-op (Salvadorean) * Right Heart Catheterization: Pulmonary Artery Catheterization: Post-op (Salvadorean) documented in this encounter Medications at Time of Discharge Medication Sig Dispensed Refills Start Date End Date nystatin (MYCOSTATIN) 100,000 unit/gram Powder Apply topically 2 times daily as needed. 10/22/2022 OneTouch Verio test strips Strip USE DAILY 01/03/2022 Medikal.comTouch Delica Plus Lancet 33 gauge Misc USE [...] MD - 11/09/2022 11:20 AM EDT . [facility] Interventional Cardiology Adult Pre-Procedure H&P Update: Cardiac Catheterization Purnima Thacker [id number] 1955 Chief Complaint: BONILLA HPI: Purnima Thacker [...] Marrero MD Interventional Cardiology 11/09/22 11:43 AM [facility] Pager: [phone] documented in this encounter Plan of Treatment Upcoming Encounters Date Type Department Care Team (Late st Contact Info) Description 02/22/2024 4:15 PM EDT Office Visit Dermatology at [place] [address] [place] [address] Marek Bonilla MD [address] [facility] [place] [address] 06/05/2024 11:30 AM EST Office [place] [address] Magdalena Peralta MD [facility] [place] [address] documented as of this encounter Procedures Procedure Name Priority Date/Time Associated Diagnosis Comments CARDIAC CATHETERIZATION Routine 11/10/19 23 1:05 PM EDT Aortic valve stenosis, etiology of cardiac valve disease unspecified Cath Plmt Left Heart Cath & Arts W/Inj & Angio Img S&I ([id number]) 11/09/2022 11:51 AM EDT Aortic valve stenosis, etiology of cardiac valve disease unspecified EKG 12-LEAD Routine 11/09/2022 11:17 AM EDT Aortic valve stenosis, etiology of cardiac valve disease unspecified documented in this encounter Results * CARDIAC CATHETERIZATION (11/09/2022 1:05 PM EDT) Anatomical Region Laterality Modality Other Narrative 11/09/2022 2:01 PM EDT ?[facility] ? Cardiac Catheterization/Intervention Report ? Patient Name: Kirstie, Purnima M. ? Procedure Date: 11/09/2022 ? A #: [id number] ? Primary Physician: Nitesh Escobedo ? Case #: [id number] ? File Name: [id number] ? Catheterization Order Number: [id number] ? [facility] ? Final Report [place], [place] ? Patient Name: ? Purnima M. Kirstie ? ID#: ?[id number] ? : ?1955 ? Procedure Date: ? [...] designated as ASA Class III. The [facility] clinical frailty scale ?is 4: Vulnerable. [...] (Bezet) 457 ms MUSE SYSTEM Calculated P [place] 44 degrees MUSE SYSTEM Calculated R [place] 33 degrees MUSE SYSTEM Calculated T [place] 30 degrees MUSE SYSTEM INTERPRETATION Sinus rhythm Occasional Premature ventricular complexes Otherwise normal ECG When compared with ECG of 21-SEP-2016 12:26, Premature ventricular complexes are now Present W[place] interval has decreased Nonspecific T wave abnormality has replaced inverted T waves in Inferior leads I personally reviewed the tracing and edited the fellows interpretation Confirmed by fellow MD Anitha, Carissa ([id number]) on 11/09/2022 6:17:28 PM Confirmed by Elsa [...] MD) documented in this encounter Care Teams Node Js Developer Relationship Specialty Start Date End Date Deborah Quiroga, WEB PUBLISHER PCP - General Family Medicine 03/24/16 02/04/23 documented as of this encounter
--- OUTSIDE RECORDS SUMMARY | 2024-02-17 14:26 | XMS_ITS | Encounter Summary ---
[place] [address] Care Team Providers Care Full Stack Developer Name Role Phone Deborah Quiroga APRN Primary Care Provider [phone] Encounter Details Date Type Department Care Team (Late st Contact Info) Description 06/05/2021 Interpretation Only [address] [phone] Deborah Quiroga APRN [address] [address] Social History Tobacco Use Types Packs/Day Years [...] PM EDT Office Visit Dermatology at [address] [place] [address] Marek Bonilla MD [address] [facility] [place] [address] 06/05/2024 11:30 AM EST Office [place] [address] Magdalena Peralta MD [facility] [place] [address] documented as of this encounter Procedures Procedure Name Priority Date/Time Associated Diagnosis Comments MAMMO SCREENING CAD BILATERAL Routine 06/05/2021 11:42 AM EDT documented in this encounter Results * Mammo Screening Cad Bilateral (06/05/2021 11:42 AM EDT) PT CLASS O DH RAD ADMITDTTM DH RAD PT DH RAD MD INFO [id number]^EV ERETT^DEBORAH^E DH RAD EXAM DESC MADDSC^SCREEN MAMMO [...] who have questions please contact the health care associate that requested your imaging first. ? Electronically signed by: Rocael Villatoro MD, [facility] ([phone]), at 06/05/2021 1:27 PM Narrative 06/05/2021 1:27 [...] patients who have questions please contactthe health care associate that requested your imaging first. Electronically signed by: Rocael Villatoro MD, [facility]([phone]), at 06/05/2021 1:27 PM Deborah Quiroga APRN IMG MAMMO ORDERABLE S documented in this encounter Visit Diagnoses Not on filedocumented in this encounter Care Teams Full Stack Developer Relationship Specialty Start Date End Date Deborah Quiroga APRN PCP - General Family Medicine 03/24/16 02/04/23 documented as of this encounter
--- OUTSIDE RECORDS SUMMARY | 2024-02-17 14:26 | XMS_ITS | Encounter Summary ---
Author Organization [facility] [place] [address] Care Team Providers Care Nurse Wound Name Role Phone Magdalena Acosta MD Primary Care Provider [phone] Encounter Details Date Type Department Care Team (Latest Contact Info) Description 02/05/2023 9:33 PM EDT - 02/05/2023 11:59 PM EDT Hospital [place] [phone] Discharge Disposition: Home Social History Tobacco Use [...] 4:15 PM EDT Office Visit Dermatology at [place] [address] [facility] [place] [address] Marek Bonilla MD [address] [place] [address] [place] [address] 06/05/2024 11:30 AM EST Office [place] [address] Magdalena Peralta MD [facility] [place] [address] documented as of this encounter Procedures Procedure Name Priority Date/Time Associated Diagnosis Comments SURGICAL PATHOLOGY REPORT Routine 02/05/2023 3:00 PM EDT documented in this encounter Results * Surgical Pathology Report (02/05/2023 3:00 PM EDT) Pathologist [facility] Surgical Pathology Report [id number] ? Location: OPW The signing pathologist has (i) examined the relevant preparation(s) for the specimen(s) and (ii) rendered or confirmed the diagnosis(es). . ?Surgical Pathology DIAGNOSIS Left upper back, skin punch biopsy: - ??Compound dysplastic ??melanocytic nevus with moderate atypia, transected at peripheral specimen edges ?? (see discussion) Electronically signed by: ?Vanna CULP, Jesse Shields Verified: ??02/16/2023 8:04 ?? Dermatopathologist Performed at: ??-[facility] Dept. of Pathology, [place] [address] Tenant Relations Coordinator: Kunal Rubi MD, FCAP, ??CLIA Certificate: [id number] DISCUSSION If there is an obvious clinical [...] submitted in 1 cassette labeled A1. ??sns [facility] 02/05/2023 3:00 PM EDT Marek Bonilla MD PATHOLOGY/CYTOLOGY O RDERABLES [facility] [place] [address] documented in this encounter Visit Diagnoses Not on filedocumented in this encounter Care Teams Nurse Wound Relationship Specialty Start Date End Date Magdalena Acosta MD [address] [place] [address] PCP - General Family Medicine 02/05/23 documented as of this encounter
--- OUTSIDE RECORDS SUMMARY | 2024-02-17 14:26 | XMS_ITS | Encounter Summary ---
Author Organization [place] [address] Care Team Providers Care Child Guidance Counselor Name Role Phone Deborah Quiroga APRN Primary Care Provider [phone] Encounter Details Date Type Department Care Team (Latest Contact Info) Description 07/03/2022 1:36 PM EST - 07/03/2022 11:59 PM EST Hospital Encounter Hematology [place] [address] Discharge Disposition: Home Social History Tobacco Use [...] 4:15 PM EDT Office Visit Dermatology at [place] [address] [place] [address] Marek Bonilla MD [address] [facility] [place] [address] 06/05/2024 11:30 AM EST Office [place] [address] Magdalena Peralta MD [facility] [place] [address] documented as of this encounter Procedures Procedure Name Priority Date/Time Associated Diagnosis Comments FOLATE, SERUM Routine 07/03/2022 1:59 PM EST VITAMIN B12 Routine 07/03/2022 1:59 PM EST documented in this encounter Results * Folate, serum (07/03/2022 1:59 PM EST) Folate Lvl >20.0 4.8 - 24.2 ng/mL [facility] Blood Venous Draw / Unknown 07/03/2022 1:59 PM EST 07/03/2022 2:13 PM EST Narrative Resulting Agency Comment Spec In Lab Markel Borjas MD CHEMISTRY ORDERABL ES Performing Organization Address City/[facility]/ZIP Co de Phone Number [facility] [place] [address] * Vitamin B12 (07/03/2022 1:59 PM EST) Vitamin B-12 449 232 - 1,245 pg/mL [facility] Blood Venous Draw / Unknown 07/03/2022 1:59 PM EST 07/03/2022 2:13 PM EST Narrative Resulting Agency Comment Spec In Lab Markel Borjas MD CHEMISTRY ORDERABL ES Performing Organization Address [facility]/ZIP Co de Phone Number [facility] [place] [address] documented in this encounter Visit Diagnoses Not on filedocumented in this encounter Care Teams Child Guidance Counselor Relationship Specialty Start Date End Date Deborah Quiroga APRN PCP - General Family Medicine 03/24/16 02/04/23 documented as of this encounter
--- OUTSIDE RECORDS SUMMARY | 2024-02-17 14:26 | XMS_ITS | Encounter Summary ---
[place] [address] Care Team Providers Care Mallet Cutter Name Role Phone Magdalena Acosta MD Primary Care Provider [phone] Reason for Referral * Consultation (Routine) - Authorized Specialty Diagnoses / Procedures Referred By Contac t Referred To Contact Rheumatology Diagnoses Weakness Kyra Haas MD [facility] [address] [place] [address] [facility] [address] [place] [phone] Referral ID Status Reason Start Date Expiration Date Visits Requested Visits Authorized [id number] Authorized Consult, Test & Treat PCP Updated and/or Approved 02/25/2023 02/25/2024 6 6 Encounter Details Date Type Department Care Team (Late st Contact Info) Description 02/25/2023 Transcribe Orders eDH Incoming Referrals [phone] Magdalena Acosta MD [address] [place] [address] Weakness Social History Tobacco Use [...] 4:15 PM EDT Office Visit Dermatology at [place] [address] [facility] [place] [address] Marek Bonilla MD [address] [facility] [place] [address] 06/05/2024 11:30 AM EST [place] [address] Magdalena Peralta MD [facility] [place] [address] Scheduled Referrals Name Type Priority Associated Diagnoses Order Schedule Referral to Rheumatology Outpatient Referral Routine Weakness Ordered: 02/25/2023 documented as of this encounter Visit Diagnoses Diagnosis Weakness Other malaise and fatigue documented in this encounter Care Teams Mallet Cutter Relationship Specialty Start Date End Date Magdalena Acosta MD [address] [place] [address] PCP - General Family Medicine 02/05/23 documented as of this encounter
--- OUTSIDE RECORDS SUMMARY | 2024-02-17 14:26 | XMS_ITS | Encounter Summary ---
Author Organization [facility] [place] [address] Care Team Providers Care Purchasing And Claims Supervisor Name Role Phone Deborah Quiroga APRN Primary Care Provider [phone] Encounter Details Date Type Department Care Team (Late st Contact Info) Description 06/17/2022 Ancillary Procedure [place] [address] Deborah Quiroga CRUST SORTER [address] [address] Social History Tobacco Use Types Packs/Day Years [...] PM EDT Office Visit Dermatology at [address] [place] [address] Marek Bonilla MD [address] [facility] DERMATOLOGY [place], [place] [address] 06/05/2024 11:30 AM EST Office [place] [address] Magdalena Peralta MD [facility] DR RHEUMATOLOGY [place] [address] documented as of this encounter Procedures Procedure Name Priority Date/Time Associated Diagnosis Comments FILM LIBRARY STORAGE ONLY MR SPINE Routine 06/17/2022 12:00 AM EST documented in this encounter Results * Film Library- Storage Only MR Spine (06/17/2022 12:00 AM EST) Narrative [facility] - 06/18/2022 11:00 AM EST This exam is auto-finalizing. It's purpose is for storage only. Deborah Quiroga APRN IMGerman FILM LIBRARY OR DERABLES Performing Organization Address City/State/[facility] Co de Phone Number [place], [place] documented in this encounter Visit Diagnoses Not on filedocumented in this encounter Care Teams Purchasing And Claims Supervisor Relationship Specialty Start Date End Date Deborah Quiroga APRN PCP - General Family Medicine 03/24/16 02/04/23 documented as of this encounter
--- OUTSIDE RECORDS SUMMARY | 2024-02-17 14:26 | XMS_ITS | Encounter Summary ---
Author Organization [facility] [place] [address] Care Team Providers Care Charcoal Kiln Burner Name Role Phone Deborah Quiroga APRN Primary Care Provider [phone] Encounter Details Date Type Department Care Team (Late st Contact Info) Description 06/08/2022 Ancillary Procedure [place] [address] Deborah Quiroga SOLAR INSTALLER TECHNICIAN [address] [phone] Social History Tobacco Use Types Packs/Day Years [...] PM EDT Office Visit Dermatology at [address] [place] [address] Marek Bonilla MD [address] [facility] DERMATOLOGY [place], [place] [address] 06/05/2024 11:30 AM EST Office [place] [address] Magdalena Peralta MD [facility] [place] [address] documented as of this encounter Procedures Procedure Name Priority Date/Time Associated Diagnosis Comments FILM LIBRARY STORAGE ONLY DX SPINE Routine 06/08/2022 12:00 AM EST documented in this encounter Results * Film Library- Storage Only DX Spine (06/08/2022 12:00 AM EST) Narrative [facility] - 06/18/2022 10:57 AM EST This exam is auto-finalizing. It's purpose is for storage only. Deborah Quiroga APRN IMGerman FILM LIBRARY OR DERABLES Performing Organization Address City/State/[facility] Co de Phone Number [place], [place] documented in this encounter Visit Diagnoses Not on filedocumented in this encounter Care Teams Charcoal Kiln Burner Relationship Specialty Start Date End Date Deborah Quiroga APRN PCP - General Family Medicine 03/24/16 02/04/23 documented as of this encounter
--- OUTSIDE RECORDS SUMMARY | 2024-02-17 14:26 | XMS_ITS | Encounter Summary ---
Author Organization [facility] Address [facility] [place] [address] Care Team Providers Care Gas Welding Equipment Mechanic Name Role Phone Ashley Quirogazac Shields APRN Primary Care Provider [phone] Reason for Referral * Consultation (Routine) - Closed Specialty Diagnoses / Procedures Referred By Contac t Referred To Contact Neurology Diagnoses Neck pain Popeye Rogers MD [facility] [place] [address] Kyra Haas MD [facility] [address] [address] Referral ID Status Reason Start Date Expiration Date V isits Requested Visits Authorized [id number] Closed Consult, Test & Treat 06/29/2022 06/29/2023 1 1 Reason for Visit * Reason Comments Neck Pain Weak in both arms, p ain and tingling in arms and hands Encounter Details Date Type Department Care Team (Late st Contact Info) Description 06/29/2022 10:20 AM EST Office Visit [facility] [place] [address] Popeye Rogers MD [facility] [place] [address] Neck pain Social History Tobacco Use Types [...] have EMG and nerve conduction studies in [place] that showed carpal tunnel syndrome. I do not have a copy of that report. documented in this encounter Plan of Treatment Upcoming Encounters Date Type Department Care Team (Late st Contact Info) Description 02/22/2024 4:15 PM EDT Office Visit Dermatology at [address] [place] [address] Marek Bonilla MD [address] [facility] [place] [address] 06/05/2024 11:30 AM EST Office [place] [address] Magdalena Peralta MD [facility] [place] [address] Scheduled Referrals Name Type Priority Associated Diagnoses Orde r Schedule Referral to Neurology Outpatient Referral Routine Neck pain Ordered: 06/29/2022 documented as of this encounter Visit Diagnoses Diagnosis Neck pain Cervicalgia documented in this encounter Care Teams Gas Welding Equipment Mechanic Relationship Specialty Start Date End Date Deborah Quiroga APRN PCP - General Family Medicine 03/24/16 02/04/23 documented as of this encounter
--- OUTSIDE RECORDS SUMMARY | 2024-02-17 14:26 | XMS_ITS | Encounter Summary ---
[place] [address] Care Team Providers Care Shrinking Machine Operator Name Role Phone Magdalena Acosta MD Primary Care Provider [phone] Encounter Details Date Type Department Care Team (Latest Contact Info) Description 03/18/2023 2:30 PM EDT Laboratory Appointment Lab [address] [address] Positive FRANCISCO (antinuclear antibody) Social [...] 4:15 PM EDT Office Visit Dermatology at [address] [facility] [place] [address] Marek Bonilla MD [address] [facility] [place] [address] 06/05/2024 11:30 AM EST Office [place] [address] Magdalena Peralta MD [facility] [place] [address] documented as of this encounter Procedures Procedure Name Priority Date/Time Associated Diagnosis Comments HC PCH ANATITRE (ANDPATTERN) Routine 03/18/2023 2:14 PM EDT Positive FRANCISCO (antinuclear antibody) HC C-REACTIVE PROTEIN Routine 03/18/2023 2:14 PM EDT Positive FRANCISCO (antinuclear antibody) HC DNA AB DS (JAMUL) Routine 03/18/2023 2:14 PM EDT Positive FRANCISCO [...] 2:14 PM EDT) Neutrophils % 71.2 % [facility] Neutr Abs (ANC) 2.26 1.70 - 6.10 x10(3)/mc L [facility] Lymphocytes % 18.2 % [facility] Lymphocytes Abs 0.6(L) 0.9 - 3.2 x10(3)/[facility] Monocytes % 9.7 % [facility] Monocyte Abs 0.3 0.3 - 0.9 x10(3)/[facility] Eosinophils % 0.3 % [facility] Eosinophils Abs 0.0 0.0 - 0.4 x10(3)/[facility] Basophils % 0.6 % [facility] Basophils Abs 0.0 0.0 - 0.1 x10(3)/[facility] Immature Gran % 0.00 % [facility] Comment: Immature granulocytes(IG's)percentage and absolute count will include metamyelocytes, myelocytes, and promyelocytes. Blood smears from CBCs yielding IG's will be scanned manually for concordance. If this scan disagrees with the automated IG or if promyelocytes are noted, a manual differential will be performed. Amanda Gran Abs 0.00 0.00 - 0.04 x10(3)/[facility] Blood 03/18/2023 2:14 PM EDT 03/18/2023 2:24 PM EDT Narrative Resulting Agency Comment Spec In Lab Magdalena Peralta MD HEMATOLOGY ORDERABLE S Performing Organization Address City/State/[facility] Co de Phone Number [facility] [place] [address] * (ABNORMAL) Hemogram (03/18/2023 2:14 PM EDT) WBC 3.2(L) 4.0 - 9.5 x10(3)/[facility] RBC 3.44(L) 4.00 - 5.21 x10(6)/[facility] Hemoglobin 11.1(L) 11.7 - 15.5 g/dL [facility] Hematocrit 32.9(L) 35.7 - 45.8 % [facility] MCV 95.6(H) 82.6 - 94.[address] [facility] MCH 32.3(H) 27.1 - 32.[address] [facility] MCHC 33.7 31.7 - 35.0 g/dL [facility] Platelets 144(L) 145 - 357 x10(3)/[facility] RDWSD 42.6 37.0 - 46.0 [facility] RDWCV 12.3 11.5 - 14.1 % [facility] MPV 9.4 7.6 - 12.9 [facility] nRBC % Auto 0.0 % [facility] nRBC Abs Auto 0.000 0.000 - 0.000 x10(3)/[facility] Blood 03/18/2023 2:14 PM EDT 03/18/2023 2:24 PM EDT Narrative Resulting Agency Comment Spec In Lab Magdalena Peralta MD HEMATOLOGY ORDERABLE S Performing Organization Address City/[facility]/[place] [address] * (ABNORMAL) Sedimentation rate (03/18/2023 2:14 PM EDT) Sed Rate 68(H) 2 - 39 mm/hr [facility] Comment: Effective July 12, 2019 new capillary photometric technology has resulted in a change in reference ranges. It is recommended that each ESR result be reviewed with its own age appropriate reference range. Blood 03/18/2023 2:14 PM EDT 03/18/2023 2:24 PM EDT Narrative Resulting Agency Comment Spec In Lab Kia Viramontes DO HEMATOLOGY ORDERAB LES [facility] [place] [address] * CRP, acute inflammation (03/18/2023 2:14 PM EDT) CRP 3.0 <=4.9 mg/L [facility] Blood 03/18/2023 2:14 PM EDT 03/18/2023 2:24 PM EDT Narrative Resulting Agency Comment Spec In Lab Kia D Wander DO CHEMISTRY ORDERABL ES Performing Organization Address City/[facility]/ZIP Co de Phone Number [facility] [place] [address] * C3 Complement (03/18/2023 2:14 PM EDT) C3 Complement 142 90 - 180 mg/dL [facility] Blood 03/18/2023 2:14 PM EDT 03/18/2023 2:24 PM EDT Narrative Resulting Agency Comment Spec In Lab Kia D Wander DO CHEMISTRY ORDERABL ES Performing Organization Address [facility]/ZIP Co de Phone Number [facility] [place] [address] * C4 Complement (03/18/2023 2:14 PM EDT) C4 Complement 30 10 - 40 mg/dL [facility] Blood 03/18/2023 2:14 PM EDT 03/18/2023 2:24 PM EDT Narrative Resulting Agency Comment Spec In Lab Kia D Wander DO CHEMISTRY ORDERABL ES Performing Organization Address City/[facility]/ZIP Co de Phone Number [facility] [place] [address] * CK (03/18/2023 2:14 PM EDT) CK, Total 38 0 - 160 unit/L [facility] Blood 03/18/2023 2:14 PM EDT 03/18/2023 2:24 PM EDT Narrative Resulting Agency Comment Spec In Lab Kia Viramontes DO CHEMISTRY ORDERABL ES Performing Organization Address [facility] Co de Phone Number [facility] [place] [address] * DNA Antibody (Double-Stranded) (03/18/2023 2:14 PM EDT) dsDNA Ab <0.6 <=15.0 IU/mL [facility] Comment: <10 negative 10-15 equivocal >15 positive This dsDNA antibody result was generated using a fluoroenzyme immunoassay on the [employer] Row 250 analyzer. This quantitative test is designed to detect IgG antibodies directed against double stranded DNA in human serum. The presence of antibodies that recognize dsDNA is a highly specific marker for systemic lupus erythematosus. Please note that as of 05/26/2022 that this testing is performed by the Special Chemistry Laboratory at [facility]. This change in testing location is associated with a change is testing method and reference intervals. Please review the results of this test in association with the posted reference intervals. Blood 03/18/2023 2:14 PM EDT 03/19/2023 7:19 AM EDT Narrative Resulting Agency Comment Spec In Lab Kia Viramontes DO CHEMISTRY ORDERABL Performing Organization Address [facility] de Phone Number [facility] [place] [address] * (ABNORMAL) FRANCISCO Ab by IFA (03/18/2023 2:14 PM EDT) Antinuclear Ab Test ? Result ?Flag ??Unit ??RefValue Antinuclear Ab, HEp-2 ?Positive 1:2560 ??@ ?<1:80 (Negative) ??Substrate, S ? ADDITIONAL INFORMATION --------- ?Method: Immunofluorescence using HEp-2 cellular substrate. ??FRANCISCO Titer: ? 1:2560 ??FRANCISCO Pattern: ? Speckled ?Test Performed by: ?[facility] ?[address] [place] [address] ?Plant Machinist: Raymond Chaudhry M.D. Ph.D.; CLIA# [id number] ([id number]) [facility] Blood 03/18/2023 2:14 PM EDT 03/18/2023 3:02 PM EDT Narrative Resulting Agency Comment Spec In Lab Kia Viramontes DO CHEMISTRY ORDERABL ES [facility] [place] [address] * Comprehensive metabolic panel (non-fasting) (03/18/2023 2:14 PM EDT) Glucose Lvl 93 65 - 199 mg/dL [facility] Comment:Diabetes: >=200 mg/d L plus symptoms BUN 18 8 - 18 mg/dL [facility] Creatinine 0.99 0.70 - 1.20 mg/dL [facility] Sodium 141 135 - 145 mmol/L [facility] Potassium 4.5 3.5 - 5.0 mmol/L [facility] Comment: Please note: ??Patients with WBC >100,000 may have falsely elevated Potassium levels. ??For accurate Potassium quantification in these patients send serum separator tube (gold top) for subsequent determinations. ??Contact the Clinical Chemistry Laboratory if there are any questions. Chloride 106 98 - 107 mmol/L [facility] CO2 24 22 - 31 mmol/L [facility] Anion Gap 11 5 - 15 mmol/L [facility] Calcium 10.0 8.5 - 10.5 mg/dL [facility] Total Protein 7.3 6.1 - 8.0 g/dL [facility] Albumin 4.3 3.2 - 5.2 g/dL [facility] AST 26 0 - 30 unit/L [facility] ALT 11 0 - 30 unit/L [facility] Alk Phos 91 35 - 105 unit/L [facility] Total Bilirubin 0.4 0.2 - 1.3 mg/dL [facility] Estimated GFR 62 >=60 mL/min/1. 73 m?? [facility] Comment: This patient's estimated GFR [...] Lab Kia Viramontes DO CHEMISTRY ORDERABL ES [facility] [place] [address] documented in this encounter Visit Diagnoses Diagnosis Positive FRANCISCO (antinuclear antibody) Other and unspecified nonspecific immunological findings documented in this encounter Care Teams Shrinking Machine Operator Relationship Specialty Start Date End Date Magdalena Acosta MD [address] [place] [address] PCP - General Family Medicine 02/05/23 documented as of this encounter
--- OUTSIDE RECORDS SUMMARY | 2024-02-17 14:26 | XMS_ITS | Encounter Summary ---
Author Organization [facility] [place] [address] Care Team Providers Care Telephone Order Supervisor Name Role Phone Deborah Quiroga ANURAG Primary Care Provider [phone] Encounter Details Date Type Department Care Team (Late st Contact Info) Description 11/02/2022 Orders Only Sanitation [place] [phone] Emily [place] [address] Aortic valve stenosis, etiology of cardiac valve [...] 4:15 PM EDT Office Visit Dermatology at [address] [place] [address] Marek Bonilla MD [address] [place] [address] [place] [address] 06/05/2024 11:30 AM EST Office [place] [phone] Magdalena Peralta MD [facility] DR [place] [address] documented as of this encounter Visit Diagnoses Diagnosis Aortic valve stenosis, etiology of cardiac valve disease unspecified documented in this encounter Care Teams Telephone Order Supervisor Relationship Specialty Start Date End Date Deborah Quiroga APRN PCP - General Family Medicine 03/24/16 02/04/23 documented as of this encounter
--- OUTSIDE RECORDS SUMMARY | 2024-02-17 14:26 | XMS_ITS | Encounter Summary ---
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 documented in this encounter Plan of Treatment Upcoming Encounters Date Type Department Care Team (Late st Contact Info) Description 02/22/2024 4:15 PM EDT Office Visit Dermatology at [place] [address] [place] [address] Marek Bonilla MD [address] [facility] [place] [address] 06/05/2024 11:30 AM EST Office Visit [place] [phone] Magdalena Peralta MD [facility] [address] [place] [address] documented as of this encounter Visit Diagnoses Not on filedocumented in this encounter Care Teams Finishing Range Operator Relationship Specialty Start Date End Date Magdalena Acosta MD [address] [place] [address] PCP - General Family Medicine 02/05/23 documented as of this encounter
--- OUTSIDE RECORDS SUMMARY | 2024-02-17 14:26 | XMS_ITS | Encounter Summary ---
[place] [address] Care Team Providers Care Hedis Coordinator Name Role Phone Deborah Quiroga APRN Primary Care Provider [phone] Encounter Details Date Type Department Care Team (Late st Contact Info) Description 06/05/2021 Interpretation Only [address] [phone] Deborah Quiroga APRN [address] [address] Social History Tobacco Use Types Packs/Day Years [...] 4:15 PM EDT Office Visit Dermatology at [address] [place] [address] Marek Bonilla MD [address] [facility] [place] [address] 06/05/2024 11:30 AM EST Office [place] [address] Magdalena Peralta MD [facility] [place] [address] documented as of this encounter Procedures Procedure Name Priority Date/Time Associated Diagnosis Comments DXA CENTRAL SPINE, HIP, AND/OR WHOLE BODY (GENERIC) Routine 06/05/2021 11:58 AM EDT documented in this encounter Results * DXA Central Spine, Hip, and/or Whole Body (Generic) (06/05/2021 11:58 AM EDT) PT CLASS O RAD ADMITDTTM RAD PT RAD INFO [id number]^E VERETT^DEBORAH ^E RAD EXAM DESC XDXAC^DEXA SCAN [...] who have questions please contact the health continuum of care manager that requested your imaging first. ? Narrative [...] patients who have questions please contactthe health continuum of care manager that requested your imaging first. Deborah Quiroga APRN IMGerman DEXA ORDERABLES documented in this encounter Visit Diagnoses Not on filedocumented in this encounter Care Teams Hedis Coordinator Relationship Specialty Start Date End Date Deborah Quiroga APRN PCP - General Family Medicine 03/24/16 02/04/23 documented as of this encounter
--- OUTSIDE RECORDS SUMMARY | 2024-02-17 14:26 | XMS_ITS | Encounter Summary ---
Author Organization [facility] Erika [address] [address] Care Team Providers Care Job Site Superintendent Name Role Phone Deborah Quiroga APRN Primary Care Provider [phone] Encounter Details Date Type Department Care Team [...] 4:15 PM EDT Office Visit Dermatology at [address] [address] Marek Bonilla MD [address] [place] [place] [address] [place] [address] 06/05/2024 11:30 AM EST Office [place] [address] Magdalena Peralta MD [facility] [place] [address] documented as of this encounter Visit Diagnoses Not on filedocumented in this encounter Care Teams Job Site Superintendent Relationship Specialty Start Date End Date Deborah Quiroga APRN PCP - General Family Medicine 03/24/16 02/04/23 documented as of this encounter
--- OUTSIDE RECORDS SUMMARY | 2024-02-17 14:26 | XMS_ITS | Encounter Summary ---
Author Organization [facility] Erika l[address] [address] Care Team Providers Care Geographic Information System Surveyor Name Role Phone Deborah Quiroga APRN Primary Care Provider [phone] Encounter Details Date Type Department Care Team [...] 4:15 PM EDT Office Visit Dermatology at [address] [address] Marek Bonilla MD [address] [place] [address] [place] [address] 06/05/2024 11:30 AM EST Office [place] [address] Magdalena Peralta MD [facility] [place] [address] documented as of this encounter Visit Diagnoses Not on filedocumented in this encounter Care Teams Geographic Information System Surveyor Relationship Specialty Start Date End Date Deborah Quiroga APRN PCP - General Family Medicine 03/24/16 02/04/23 documented as of this encounter
--- OUTSIDE RECORDS SUMMARY | 2024-02-17 14:26 | XMS_ITS | Encounter Summary ---
Author Organization [facility] [place] [address] Care Team Providers Care Engineering Technician Parking Name Role Phone Magdalena Acosta MD Primary Care Provider [phone] Encounter Details Date Type Department Care Team [...] PM EDT Office Visit Dermatology at [address] [address] Marek Bonilla MD [address] [place] [address] [place] [address] 06/05/2024 11:30 AM EST Office [place] [address] Magdalena Peralta MD [facility] [address] documented as of this encounter Visit Diagnoses Not on filedocumented in this encounter Care Teams Engineering Technician Parking Relationship Specialty Start Date End Date Magdalena Acosta MD [address] [place] [address] PCP - General Family Medicine 02/05/23 documented as of this encounter
--- OUTSIDE RECORDS SUMMARY | 2024-02-17 14:26 | XMS_ITS | Encounter Summary ---
Author Organization [facility] [place] [address] Care Team Providers Care Supervisor Asphalt Paving Name Role Phone Deborah Quiroga ANURAG Primary Care Provider [phone] Encounter Details Date Type Department Care Team (Late st Contact Info) Description 01/09/2022 Refill Dermatology at [address] [address] Lupe Connor RN Social History [...] PM EDT Office Visit Dermatology at [address] [address] Marek Bonilla MD [address] [place] [address] [place] [address] 06/05/2024 11:30 AM EST Office Visit [place] [address] [facility] [place] [address] documented as of this encounter Visit Diagnoses Not on filedocumented in this encounter Care Teams Supervisor Asphalt Paving Relationship Specialty Start Date End Date Deborah Quiroga APRN PCP - General Family Medicine 03/24/16 02/04/23 documented as of this encounter
--- OUTSIDE RECORDS SUMMARY | 2024-02-17 14:26 | XMS_ITS | Encounter Summary ---
Author Organization [facility] [place] [address] Care Team Providers Care Lithographic Retoucher Apprentice Name Role Phone Magdalena Acosta MD Primary Care Provider [phone] Reason for Visit * Consultation (Routine) - Authorized Specialty Diagnoses / Procedures Referred By Contkrystle t Referred To Contact Rheumatology Diagnoses Weakness Kyra Haas MD [facility] [address] [place] [address] [facility] [address] [place] [phone] Referral ID Status Reason Start Date Expiration Date Visits Requested Visits Authorized [id number] Authorized Consult, Test & Treat PCP Updated and/or Approved 02/25/2023 02/25/2024 6 6 Encounter Details Date Type Department Care Team (Late st Contact Info) Description 03/18/2023 1:00 PM EDT Office [place] [address] Kia Viramontes DO [facility] [place] [address] Magdalena Peralta MD [facility] [place] [address] Positive FRANCISCO (antinuclear antibody) Social [...] 1:5120 speckled VIC negative Myositis panel with SALES LEADER ab 149.1 (positive) Anti U1RNP IgG 119 [...] a chair without assistance of upper extremities. Pulp Grinder And Blender strength 3+/5 bilaterally; otherwise large muscle groups [...] due to risk of retinal toxicity with penitentiary Plaquenil use, which she already does. Recommendations: #mixed connective tissue disease Start hydroxychloroquine 200 mg qd Labs today: repeat FRANCISCO, dsDNA, complements, CBC, CMP, CK, ESR, CRP Follow up 1 month The patient was seen and discussed with Dr. Wander Peralta MD Rheumatology Fellow Pager: [phone] CC: Kyra Haas * Kia Viramontes DO - 03/18/2023 1:00 PM EDT ATTENDING ADDENDUM The patient's history was reviewed, and I interviewed and examined the patient with Dr. Peralta. Catalina with her summary, findings, and plan. documented in this encounter Plan of Treatment Upcoming Encounters Date Type Department Care Team (Late st Contact Info) Description 02/22/2024 4:15 PM EDT Office Visit Dermatology at [place] [address] [place] [address] Marek Bonilla MD [address] [facility] [place] [address] 06/05/2024 11:30 AM EST Office [place] [address] Magdalena Peralta MD [facility] [place] [address] documented as of this encounter Results * Comprehensive metabolic panel (non-fasting) (03/18/2023 2:14 PM EDT) [facility] Glucose Lvl 93 65 - 199 mg/dL [facility] Comment:Diabetes: >=200 mg/d L plus symptoms BUN 18 8 - 18 mg/dL [facility] Creatinine 0.99 0.70 - 1.20 mg/dL [facility] Sodium 141 135 - 145 mmol/L [facility] Potassium 4.5 3.5 - 5.0 mmol/L [facility] Comment: Please note: ??Patients with WBC >100,000 may have falsely elevated Potassium levels. ??For accurate Potassium quantification in these patients send serum separator tube (gold top) for subsequent determinations. ??Contact the Clinical Chemistry Laboratory if there are any questions. Chloride 106 98 - 107 mmol/L [facility] CO2 24 22 - 31 mmol/L [facility] Anion Gap 11 5 - 15 mmol/L [facility] Calcium 10.0 8.5 - 10.5 mg/dL [facility] Total Protein 7.3 6.1 - 8.0 g/dL [facility] Albumin 4.3 3.2 - 5.2 g/dL [facility] AST 26 0 - 30 unit/L [facility] ALT 11 0 - 30 unit/L [facility] Alk Phos 91 35 - 105 unit/L [facility] Total Bilirubin 0.4 0.2 - 1.3 mg/dL [facility] Estimated GFR 62 >=60 mL/min/1. 73 m?? [facility] Comment: This patient's estimated [...] Lab Kia Viramontes DO CHEMISTRY ORDERABL ES [facility] [place] [address] * (ABNORMAL) FRANCISCO Ab by IFA (03/18/2023 2:14 PM EDT) Antinuclear Ab Test ? Result ?Flag ??Unit ??RefValue Antinuclear Ab, HEp-2 ?Positive 1:2560 ??@ ?<1:80 (Negative) ??Substrate, S ? ADDITIONAL INFORMATION --------- ?Method: Immunofluorescence using HEp-2 cellular substrate. ??FRANCISCO Titer: ? 1:2560 ??FRANCISCO Pattern: ? Speckled ?Test Performed by: ?[facility] ?[address] [place] [address] ?Professor Of Spanish: Raymond Chaudhry M.D. Ph.D.; CLIA# [id number] ([id number]) [facility] Blood 03/18/2023 2:14 PM EDT 03/18/2023 3:02 PM EDT Narrative Resulting Agency Comment Spec In Lab Kia Viramontes DO CHEMISTRY ORDERABL ES [facility] [place] [address] * DNA Antibody (Double-Stranded) (03/18/2023 2:14 PM EDT) dsDNA Ab <0.6 <=15.0 IU/mL [facility] Comment: <10 negative 10-15 equivocal >15 positive This dsDNA antibody result was generated using a fluoroenzyme immunoassay on the Browsarity 250 analyzer. This quantitative test is designed to detect IgG antibodies directed against double stranded DNA in human serum. The presence of antibodies that recognize dsDNA is a highly specific marker for systemic lupus erythematosus. Please note that as of 05/26/2022 that this testing is performed by the Special Chemistry Laboratory at [facility]. This change in testing location is associated with a change is testing method and reference intervals. Please review the results of this test in association with the posted reference intervals. Blood 03/18/2023 2:14 PM EDT 03/19/2023 7:19 AM EDT Narrative Resulting Agency Comment Spec In Lab Kia Mossew DO CHEMISTRY ORDERABL ES Performing Organization Address [facility] Co de Phone Number [facility] [place] [address] * CK (03/18/2023 2:14 PM EDT) CK, Total 38 0 - 160 unit/L [facility] Blood 03/18/2023 2:14 PM EDT 03/18/2023 2:24 PM EDT Narrative Resulting Agency Comment Spec In Lab Kia Erika Wander DO CHEMISTRY ORDERABL ES Performing Organization Address [facility] Co de Phone Number [facility] [place] [address] * C4 Complement (03/18/2023 2:14 PM EDT) C4 Complement 30 10 - 40 mg/dL [facility] Blood 03/18/2023 2:14 PM EDT 03/18/2023 2:24 PM EDT Narrative Resulting Agency Comment Spec In Lab Kia Erika Wander DO CHEMISTRY ORDERABL ES Performing Organization Address [facility] Co de Phone Number [facility] [place] [address] * C3 Complement (03/18/2023 2:14 PM EDT) C3 Complement 142 90 - 180 mg/dL [facility] Blood 03/18/2023 2:14 PM EDT 03/18/2023 2:24 PM EDT Narrative Resulting Agency Comment Spec In Lab Kia D Wander DO CHEMISTRY ORDERABL ES Performing Organization Address [facility]/ZIP Co de Phone Number [facility] [place] [address] * CRP, acute inflammation (03/18/2023 2:14 PM EDT) CRP 3.0 <=4.9 mg/L [facility] Blood 03/18/2023 2:14 PM EDT 03/18/2023 2:24 PM EDT Narrative Resulting Agency Comment Spec In Lab Kia Erika Wander HALL CHEMISTRY ORDERABL ES Performing Organization Address [facility] Co de Phone Number [facility] [place] [address] * (ABNORMAL) Sedimentation rate (03/18/2023 2:14 PM EDT) Sed Rate 68(H) 2 - 39 mm/hr [facility] Comment: Effective July 12, 2019 new capillary photometric technology has resulted in a change in reference ranges. It is recommended that each ESR result be reviewed with its own age appropriate reference range. Blood 03/18/2023 2:14 PM EDT 03/18/2023 2:24 PM EDT Narrative Resulting Agency Comment Spec In Lab Kia Mossew HEMATOLOGY ORDERAB LES Performing Organization Address [facility] Co de Phone Number [facility] [place] [address] documented in this encounter Visit Diagnoses Diagnosis Positive FRANCISCO (antinuclear antibody) Other and unspecified nonspecific immunological findings documented in this encounter Care Teams Lithographic Retoucher Apprentice Relationship Specialty Start Date End Date Magdalena Acosta MD [address] [place] [address] PCP - General Family Medicine 02/05/23 documented as of this encounter
--- OUTSIDE RECORDS SUMMARY | 2024-02-17 14:26 | XMS_ITS | Encounter Summary ---
[place] [address] Care Team Providers Care Chemical Operator Name Role Phone Magdalena Acosta MD Primary Care Provider [phone] Reason for Visit * Reason Comments Suture / Staple Removal Encounter Details Date Type Department Care Team (Late st Contact Info) Description 02/16/2023 10:00 AM EDT Office Visit Dermatology at [address] [phone] Marek Bonilla MD [address] [facility] DERMATOLOGY [place], [place] [phone] Visit for suture removal Social History Tobacco [...] 4:15 PM EDT Office Visit Dermatology at [place] [address] [place] [address] Marek Bonilla MD [address] [place] [address] 06/05/2024 11:30 AM EST Office [place] [address] Magdalena Peralta MD [facility] [place] [address] documented as of this encounter Visit Diagnoses Diagnosis Visit for suture removal Encounter for removal of sutures documented in this encounter Care Teams Chemical Operator Relationship Specialty Start Date End Date Magdalena Acosta MD [address] [place] [address] PCP - General Family Medicine 02/05/23 documented as of this encounter
--- OUTSIDE RECORDS SUMMARY | 2024-02-17 14:26 | XMS_ITS | Encounter Summary ---
Author Organization [facility] [place] [address] Care Team Providers Care Pmp Project Manager Name Role Phone Deborah Quiroga APRN Primary Care Provider [phone] Encounter Details Date Type Department Care Team (Latest Contact Info) Description 07/03/2022 12:28 PM EST - 07/03/2022 1:35 PM EST Hospital Encounter Hematology [place] [address] Chronic idiopathic neutropenia Discharge Disposition: Home Social [...] 4:15 PM EDT Office Visit Dermatology at [place] [address] [place] [address] Marek Bonilla MD [address] [place] [address] [place] [address] 06/05/2024 11:30 AM EST Office [place] [address] Magdalena Peralta MD [facility] [place] [address] documented as of this encounter Procedures Procedure [...] 12:40 PM EST) Neutrophils % 72.9 % [facility] Neutr Abs (ANC) 2.61 1.70 - 6.10 x10(3)/[facility] Lymphocytes % 18.4 % [facility] Lymphocytes Abs 0.7(L) 0.9 - 3.2 x10(3)/[facility] Monocytes % 8.4 % [facility] Monocyte Abs 0.3 0.3 - 0.9 x10(3)/[facility] Eosinophils % 0.0 % [facility] Eosinophils Abs 0.0 0.0 - 0.4 x10(3)/[facility] Basophils % 0.3 % [facility] Basophils Abs 0.0 0.0 - 0.1 x10(3)/[facility] Immature Gran % 0.00 % [facility] Comment: Immature granulocytes(IG's)percentage and absolute count will include metamyelocytes, myelocytes, and promyelocytes. Blood smears from CBCs yielding IG's will be scanned manually for concordance. If this scan disagrees with the automated IG or if promyelocytes are noted, a manual differential will be performed. Amanda Gran Abs 0.00 0.00 - 0.04 x10(3)/ L [facility] Blood 07/03/2022 12:4 0 PM EST 07/03/2022 1:03 PM EST Narrative Resulting Agency Comment Spec In Lab Markel Borjas MD HEMATOLOGY ORDERAB LES [facility] [place] [address] * (ABNORMAL) Hemogram (07/03/2022 12:40 PM EST) WBC 3.6(L) 4.0 - 9.5 x10(3)/[facility] RBC 3.61(L) 4.00 - 5.21 x10(6)/[facility] Hemoglobin 11.7 11.7 - 15.5 g/dL [facility] Hematocrit 34.5(L) 35.7 - 45.8 % [facility] MCV 95.6(H) 82.6 - 94.4 fL [facility] MCH 32.4(H) 27.1 - 32.0 pg [facility] MCHC 33.9 31.7 - 35.0 g/dL [facility] Platelets 171 145 - 357 x10(3)/[facility] RDWSD 40.5 37.0 - 46.0 [facility] RDWCV 11.5 11.5 - 14.1 % [facility] MPV 9.2 7.6 - 12.9 fL [facility] nRBC % Auto 0.0 % [facility] nRBC Abs Auto 0.000 0.000 - 0.000 x10(3)/[facility] Blood 07/03/2022 12:4 0 PM EST 07/03/2022 1:03 PM EST Narrative Resulting Agency Comment Spec In Lab Markel Borjas MD HEMATOLOGY ORDERAB LES [facility] [place] [address] * (ABNORMAL) Comprehensive metabolic panel (non-fasting) (07/03/2022 12:40 PM EST) Glucose Lvl 92 65 - 199 mg/dL [facility] Comment:Diabetes: >=200 mg/d L plus symptoms BUN 22(H) 8 - 18 mg/dL [facility] Creatinine 0.80 0.70 - 1.20 mg/dL [facility] Sodium 139 135 - 145 mmol/L [facility] Potassium 4.2 3.5 - 5.0 mmol/L [facility] Comment: Please note: ??Patients with WBC >100,000 may have falsely elevated Potassium levels. ??For accurate Potassium quantification in these patients send serum separator tube (gold top) for subsequent determinations. ??Contact the Clinical Chemistry Laboratory if there are any questions. Chloride 105 98 - 107 mmol/L [facility] CO2 23 22 - 31 mmol/L [facility] Anion Gap 11 5 - 15 mmol/L [facility] Calcium 10.1 8.5 - 10.5 mg/dL [facility] Total Protein 7.6 6.1 - 8.0 g/dL [facility] Albumin 4.1 3.2 - 5.2 g/dL [facility] AST 25 0 - 30 unit/L [facility] ALT 14 0 - 30 unit/L [facility] Alk Phos 80 35 - 105 unit/L [facility] Total Bilirubin 0.3 0.2 - 1.3 mg/dL [facility] Estimated GFR 81 >=60 mL/min/1. 73 m?? [facility] Comment: This patient's estimated GFR [...] Lab Markel Borjas MD CHEMISTRY ORDERABL ES [facility] [place] [address] documented in this encounter Visit Diagnoses Diagnosis Chronic idiopathic neutropenia Other neutropenia documented in this encounter Care Teams Pmp Project Manager Relationship Specialty Start Date End Date Deborah Quiroga, JAVA CORE DEVELOPER PCP - General Family Medicine 03/24/16 02/04/23 documented as of this encounter
--- OUTSIDE RECORDS SUMMARY | 2024-02-17 14:26 | XMS_ITS | Encounter Summary ---
Author Organization [facility] Address [facility] [place] [address] Care Team Providers Care Pin Attacher Name Role Phone Deborah Quiroga APRN Primary Care Provider [phone] Reason for Visit * Reason Comments Follow-up Encounter Details Date Type Department Care Team (Late st Contact Info) Description 07/03/2022 1:30 PM EST Office Visit Hematology and Oncology at [facility] [place] [address] Markel Borjas MD [facility] [place] [address] Consuelo Sommer APRN [facility] [address] HEMATOLOGY [place] [address] Chronic idiopathic neutropenia; Dysuria Social History Tobacco [...] 07/03/2022 1:30 PM EST Hematology Outpatient Clinic [facility] Hematology Outpatient Consult Note CC: [id number] [...] TOUCH PREP, CLOT SECTION, CORE ??BIOPSY); [OSR# [id number], COLLECTED 06/23/2016, 19 SLIDES]: ?1. 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 Extremities: No edema. Labs: Hgb= 11.7 Zjqp=661 ANC= 2.5 Imaging As above - reviewed [...] 4:15 PM EDT Office Visit Dermatology at [place] [address] [facility] [place] [address] Marek Bonilla MD [address] [facility] [place] [address] 06/05/2024 11:30 AM EST Office [place] [address] Magdalena Peralta MD [facility] [address] [place] [address] documented as of this encounter Procedures Procedure [...] tract infection, submit a new specimen. (A) [facility] Clean Catch Urine 07/03/2022 2:00 PM EST 07/03/2022 5:55 PM EST Narrative Resulting Agency Comment Spec In Lab Markel Borjas MD MICROBIOLOGY - GEN ERAL ORDERABLES Performing Organization Address [facility]/ZIP Co de Phone Number [facility] [place] [address] * (ABNORMAL) Urinalysis Microscopic Exam (07/03/2022 2:00 PM EST) RBC UA 2 0 - 4 /HPF [facility] WBC UA 14(H) 0 - 5 /HPF [facility] Bacteria UA Occasional (A) None /HPF [facility] Squam Epith UA 12(H) <=4 /HPF [facility] Hyaline Cast UA 2 0 - 2 /LPF [facility] Clean Catch Urine 07/03/2022 2:00 PM EST 07/03/2022 2:29 PM EST Narrative Resulting Agency Comment Spec In Lab Markel Borjas MD URINE ORDERABLES Performing Organization Address City/[facility]/ZIP Co de Phone Number [facility] [place] [address] * (ABNORMAL) Urinalysis with reflex Culture (07/03/2022 2:00 PM EST) Glucose UA Negative Negative mg/dL [facility] Protein UA 30(A) Negative mg/dL [facility] Bilirubin UA Negative Negative mg/dL [facility] Comment: Clinical correlation required for positive Urine Bilirubin results as false positive may occur with some drugs and drug related products. If a false positive is suspected a serum total bilirubin should be considered if clinically indicated. Urobilinogen UA Normal Normal mg/dL [facility] pH UA 5.5 5.0 - 8.0 [facility] Blood UA Negative Negative mg/dL [facility] Ketones UA Trace(A) Negative mg/dL [facility] Nitrite UA Negative Negative [facility] Leukocytes UA Small(A) Negative [facility] Appearance UA Clear Clear [facility] Spec [place] UA 1.022 1.005 - 1.030 [facility] Color UA Yellow Yellow [facility] Culture Reflexed Yes [facility] Clean Catch Urine 07/03/2022 2:00 PM EST 07/03/2022 2:29 PM EST Narrative Resulting Agency Comment Spec In Lab Markel Borjas MD URINE ORDERABLES Performing Organization Address City/State/[facility] Co de Phone Number [facility] [place] [address] * (ABNORMAL) Comprehensive metabolic panel (non-fasting) (07/03/2022 12:40 PM EST) Glucose Lvl 92 65 - 199 mg/dL [facility] Comment:Diabetes: >=200 mg/d L plus symptoms BUN 22(H) 8 - 18 mg/dL [facility] Creatinine 0.80 0.70 - 1.20 mg/dL [facility] Sodium 139 135 - 145 mmol/L [facility] Potassium 4.2 3.5 - 5.0 mmol/L [facility] Comment: Please note: ??Patients with WBC >100,000 may have falsely elevated Potassium levels. ??For accurate Potassium quantification in these patients send serum separator tube (gold top) for subsequent determinations. ??Contact the Clinical Chemistry Laboratory if there are any questions. Chloride 105 98 - 107 mmol/L [facility] CO2 23 22 - 31 mmol/L [facility] Anion Gap 11 5 - 15 mmol/L [facility] Calcium 10.1 8.5 - 10.5 mg/dL [facility] Total Protein 7.6 6.1 - 8.0 g/dL [facility] Albumin 4.1 3.2 - 5.2 g/dL [facility] AST 25 0 - 30 unit/L [facility] ALT 14 0 - 30 unit/L [facility] Alk Phos 80 35 - 105 unit/L [facility] Total Bilirubin 0.3 0.2 - 1.3 mg/dL [facility] Estimated GFR 81 >=60 mL/min/1. 73 m?? [facility] [...] Lab Markel Borjas MD CHEMISTRY ORDERABL ES [facility] [place] [address] documented in this encounter Visit Diagnoses Diagnosis Chronic idiopathic neutropenia Other neutropenia Dysuria documented in this encounter Care Teams Pin Attacher Relationship Specialty Start Date End Date Deborah Quiroga APRN PCP - General Family Medicine 03/24/16 02/04/23 documented as of this encounter
--- OUTSIDE RECORDS SUMMARY | 2024-02-17 14:26 | XMS_ITS | Encounter Summary ---
[place] [address] Care Team Providers Care Railroad Emergency Services Manager Name Role Phone Magdalena Acosta MD Primary Care Provider [phone] Reason for Visit * Reason Comments Annual Exam Encounter Details Date Type Department Care Team (Late st Contact Info) Description 02/05/2023 2:30 PM EDT Office Visit Dermatology at [address] [address] Marek Bonilla MD [address] [facility] [place] [address] Rosacea; Ocular rosacea; Nevus Social History Tobacco [...] cutaneous and ocular 2. Previously told by grinder operator automatic that she had corneal tears from her [...] 4:15 PM EDT Office Visit Dermatology at [address] [phone] Marek Bonilla MD [address] [place] [address] [place] [address] 06/05/2024 11:30 AM EST Office Visit [place] [address] Magdalena Peralta MD [facility] [place] [address] documented as of this encounter Visit Diagnoses Diagnosis Rosacea Ocular rosacea Rosacea Nevus Benign neoplasm of skin, site unspecified documented in this encounter Care Teams Railroad Emergency Services Manager Relationship Specialty Start Date End Date Magdalena Acosta MD [address] [place] [address] PCP - General Family Medicine 02/05/23 documented as of this encounter
--- OUTSIDE RECORDS SUMMARY | 2024-02-17 14:26 | XMS_ITS | Encounter Summary ---
Author Organization [facility] Address [facility] [place] [address] Care Team Providers Care Patrol Conductor Name Role Phone Magdalena Acosta MD Primary Care Provider [phone] Encounter Details Date Type Department Care Team (Late st Contact Info) Description 02/17/2023 2:00 PM EDT Office [place] [address] Alirio Esparza MD [facility] DR CARDIOTHORAC[place] [address] Aortic valve stenosis, etiology of cardiac valve [...] 4:15 PM EDT Office Visit Dermatology at [place] [address] [facility] [address] [facility] [address] Marek Bonilla MD [address] [facility] [place] [address] 06/05/2024 11:30 AM EST [place] [address] Magdalena Peralta MD [facility] [place] [address] documented as of this encounter Visit Diagnoses Diagnosis Aortic valve stenosis, etiology of cardiac valve disease unspecified documented in this encounter Care Teams Patrol Conductor Relationship Specialty Start Date End Date Magdalena Acosta MD [address] [place] [address] PCP - General Family Medicine 02/05/23 documented as of this encounter
--- OUTSIDE RECORDS SUMMARY | 2024-02-17 14:26 | XMS_ITS | Encounter Summary ---
[place] [address] Care Team Providers Care Watch Assembler Name Role Phone Deborah Quiroga APRN Primary Care Provider [phone] Reason for Visit * Reason Comments Annual Exam Encounter Details Date Type Department Care Team (Late st Contact Info) Description 01/09/2022 3:15 PM EDT Office Visit Dermatology at [address] [address] Marek Bonilla MD [address] [facility] DERMATOLOGY [place], [place] [id number] Rosacea Social History Tobacco Use Types Packs/Day [...] cutaneous and ocular 2. Previously told by career development coordinator that she had corneal tears from her [...] refills. We will call this into her [facility] in [place] 3. Continue metronidazole 0.75% gel applying every other day after washing as needed. We will give her 45 g with 5 refills. 4. Return to clinic in a year for repeat check CC: Deborah Quiroga APRN documented in this encounter Plan of Treatment Upcoming Encounters Date Type Department Care Team (Late st Contact Info) Description 02/22/2024 4:15 PM EDT Office Visit Dermatology at [address] [address] Marek Bonilla MD [address] [place] [address] [place] [address] 06/05/2024 11:30 AM EST [place] [address] Magdalena Peralta MD [facility] [place] [address] documented as of this encounter Visit Diagnoses Diagnosis Rosacea documented in this encounter Care Teams Watch Assembler Relationship Specialty Start Date End Date Deborah Quiroga APRN PCP - General Family Medicine 03/24/16 02/04/23 documented as of this encounter
--- OUTSIDE RECORDS SUMMARY | 2024-02-17 14:26 | XMS_ITS | Encounter Summary ---
Author Organization [facility] [place] [address] Care Team Providers Care Reinforcing Iron Worker Helper Name Role Phone Magdalena Acosta MD Primary Care Provider [phone] Encounter Details Date Type Department Care Team [...] 4:15 PM EDT Office Visit Dermatology at [address] [address] Marek Bonilla MD [address] [place] [address] [place] [address] 06/05/2024 11:30 AM EST [place] [address] Magdalena Peralta MD [facility] [place] [address] documented as of this encounter Visit Diagnoses Not on filedocumented in this encounter Care Teams Reinforcing Iron Worker Helper Relationship Specialty Start Date End Date Magdalena Acosta MD [address] [place] [address] PCP - General Family Medicine 02/05/23 documented as of this encounter
--- OUTSIDE RECORDS SUMMARY | 2024-02-17 14:26 | XMS_ITS | Encounter Summary ---
Author Organization [facility] Address [facility] [place] [address] Care Team Providers Care Warp Dyeing Tender Name Role Phone Deborah Quiroga ANURAG Primary Care Provider [phone] Encounter Details Date Type Department Care Team (Late st Contact Info) Description 01/14/2023 Refill Dermatology at [address] [address] Lupe Connor RN Social History [...] She would like the medication called into [facility] in [facility]. Discussed with Dr. Bonilla and he has approved refill of the Doxycycline 50 mg take one capsule by mouth daily in the evenings dispense 30 capsules with 2 refills. Patient notified. documented in this encounter Plan of Treatment Upcoming Encounters Date Type Department Care Team (Late st Contact Info) Description 02/22/2024 4:15 PM EDT Office Visit Dermatology at [place] [address] [facility] [place] [address] Marek Bonilla MD [address] [facility] [place] [address] 06/05/2024 11:30 AM EST Office [place] [address] Magdalena Peralta MD [facility] [place] [address] documented as of this encounter Visit Diagnoses Not on filedocumented in this encounter Care Teams Warp Dyeing Tender Relationship Specialty Start Date End Date Deborah Quiroga APRN PCP - General Family Medicine 03/24/16 02/04/23 documented as of this encounter
--- OUTSIDE RECORDS SUMMARY | 2024-02-17 14:26 | XMS_ITS | Encounter Summary ---
Author Organization [facility] [place] [address] Care Team Providers Care Workday Manager Name Role Phone Magdalena Acosta MD Primary Care Provider [phone] Encounter Details Date Type Department Care Team [...] PM EDT Office Visit Dermatology at [address] [address] Marek Bonilla MD [address] [place] [address] [place] [address] 06/05/2024 11:30 AM EST Office [place] [address] Magdalena Peralta MD [facility] [address] documented as of this encounter Visit Diagnoses Not on filedocumented in this encounter Care Teams Workday Manager Relationship Specialty Start Date End Date Magdalena Acosta MD [address] [place] [address] PCP - General Family Medicine 02/05/23 documented as of this encounter
--- OUTSIDE RECORDS SUMMARY | 2024-02-17 14:26 | XMS_ITS | Encounter Summary ---
Author Organization [facility] [place] [address] Care Team Providers Care Screw Down Name Role Phone Junaid Deborah Shields APRN Primary Care Provider [phone] Encounter Details Date Type Department Care Team (Latest Contact Info) Description 11/09/2022 10:37 AM EDT - 11/09/2022 4:53 PM EDT Hospital En[place] [address] Nitesh Escobedo MD [facility] [place] [address] Aortic valve stenosis, etiology of cardiac valve [...] Center 02/05/2023 2:30 PM Marek Bonilla MD [facility] New Medications to be Picked Up None For questions regarding this document or issues relating to this hospitalization on the Medical Service, please contact your inpatient physician through the [facility] Job Analysis Manager . Issues afterhours and on weekends will be handled by the Hospitalist staff on-call. * Attachments The following attachments cannot be sent through Care Everywhere. * Coronary Angiogram: Post-op (Kittitian) * Right Heart Catheterization: Pulmonary Artery Catheterization: Post-op (Kittitian) documented in this encounter Medications at Time of Discharge Medication Sig Dispensed Refills Start Date End Date nystatin (MYCOSTATIN) 100,000 unit/gram Powder Apply topically 2 times daily as needed. 10/22/2022 OneTouch Verio test strips Strip USE DAILY 01/03/2022 FliptuTouch Delica Plus Lancet 33 gauge Misc USE [...] MD - 11/09/2022 11:20 AM EDT . [facility] Interventional Cardiology Adult Pre-Procedure H&P Update: Cardiac Catheterization Purnima Thacker [id number] 1955 Chief Complaint: BONILLA HPI: Purnima Thacker [...] Marrero MD Interventional Cardiology 11/09/22 11:43 AM [facility] Pager: [phone] documented in this encounter Plan of Treatment Upcoming Encounters Date Type Department Care Team (Late st Contact Info) Description 02/22/2024 4:15 PM EDT Office Visit Dermatology at [address] [phone] Marek Bonilla MD [address] [place] [address] [place] [address] 06/05/2024 11:30 AM EST Office [place] [address] Magdalena Peralta MD [facility] [place] [address] documented as of this encounter Procedures Procedure Name Priority Date/Time Associated Diagnosis Comments CARDIAC CATHETERIZATION Routine 11/10/19 1:05 PM EDT Aortic valve stenosis, etiology of cardiac valve disease unspecified Cath Plmt Left Heart Cath & Arts W/Inj & Angio Img S&I ([id number]) 11/09/2022 11:51 AM EDT Aortic valve stenosis, etiology of cardiac valve disease unspecified EKG 12-LEAD Routine 11/09/2022 11:17 AM EDT Aortic valve stenosis, etiology of cardiac valve disease unspecified documented in this encounter Results * CARDIAC CATHETERIZATION (11/09/2022 1:05 PM EDT) Anatomical Region Laterality Modality Other Narrative 11/09/2022 2:01 PM EDT ?[facility] ? Cardiac Catheterization/Intervention Report ? Patient Name: Purnima Thacker. ? Procedure Date: 11/09/2022 ? A #: [id number] ? Primary Physician: Nitesh Escobedo ? Case #: [id number] ? File Name: [id number] ? Catheterization Order Number: [id number] ? [facility] ? Final Report [place], [place] ? Patient Name: ? Purnima M. Kirstie ? ID#: ?[id number] ? : ?1955 ? Procedure Date: ? [...] was designated as ASA Class III. The [facility] clinical frailty scale ?is 4: Vulnerable. ? [...] (Bezet) 457 ms MUSE SYSTEM Calculated P [place] 44 degrees MUSE SYSTEM Calculated R [place] 33 degrees MUSE SYSTEM Calculated T [place] 30 degrees MUSE SYSTEM INTERPRETATION Sinus rhythm Occasional Premature ventricular complexes Otherwise normal ECG When compared with ECG of 21-SEP-2016 12:26, Premature ventricular complexes are now Present [place] interval has decreased Nonspecific T wave abnormality has replaced inverted T waves in Inferior leads I personally reviewed the tracing and edited the fellows interpretation Confirmed by fellow MD Anitha, [facility] ([id number]) on 11/09/2022 6:17:28 PM Confirmed by Elsa [...] MD) documented in this encounter Care Teams Screw Down Relationship Specialty Start Date End Date Deborah Quiroga, ANURAG PCP - General Family Medicine 03/24/16 02/04/23 documented as of this encounter
--- OUTSIDE RECORDS SUMMARY | 2024-02-17 14:26 | XMS_ITS | Encounter Summary ---
Author Organization [facility] Erika [place] [address] Care Team Providers Care Studio Sales Associate Name Role Phone Deborah Quiroga APRN Primary Care Provider [phone] Encounter Details Date Type Department Care Team [...] 4:15 PM EDT Office Visit Dermatology at [address] [address] Marek Bonilla MD [address] [place] [address] [place] [address] 06/05/2024 11:30 AM EST [place] [address] Magdalena Peralta MD [facility] [place] [address] documented as of this encounter Visit Diagnoses Not on filedocumented in this encounter Care Teams Studio Sales Associate Relationship Specialty Start Date End Date Deborah Quiroga APRN PCP - General Family Medicine 03/24/16 02/04/23 documented as of this encounter
--- OUTSIDE RECORDS SUMMARY | 2024-02-17 14:26 | XMS_ITS | Encounter Summary ---
Author Organization [facility] [place] [address] Care Team Providers Care Ham Boner Name Role Phone Deborah Quiroga APRN Primary Care Provider [phone] Reason for Referral * Consultation (Routine) - Closed Specialty Diagnoses / Procedures Referred By Crispin maxwell Referred To Contact Neurology Diagnoses Polyneuropathy Deborah Quiroga APRN [address] [place] [address] [facility] Neurology [address] [place] [phone] Referral ID Status Reason Start Date Expiration Date V isits Requested Visits Authorized [id number] Closed Consult, Test & Treat 10/29/2022 10/29/2023 1 1 Encounter Details Date Type Department Care Team (Latest Contact Info) Description 10/29/2022 Transcribe Orders eDH Incoming Referrals [phone] Deborah Quiroga APRN [address] [place] [address] Polyneuropathy (Primary Dx) Social History [...] 4:15 PM EDT Office Visit Dermatology at [place] [address] [place] [address] Marek oBnilla MD [address] [facility] [place] [address] 06/05/2024 11:30 AM EST Office [place] [address] Magdalena Peralta MD [facility] DR RHEUMATOLOGY [place] [address] Scheduled Referrals Name Type Priority Associated Diagnoses Orde r Schedule Referral to Neurology Outpatient Referral Routine Polyneuropathy Ordered: 10/29/2022 documented as of this encounter Visit Diagnoses Diagnosis Polyneuropathy- Primary Unspecified hereditary and idiopathic peripheral neuropathy documented in this encounter Care Teams Ham Boner Relationship Specialty Start Date End Date Deborah Quiroga APRN PCP - General Family Medicine 03/24/16 02/04/23 documented as of this encounter
--- OUTSIDE RECORDS SUMMARY | 2024-02-17 14:26 | XMS_ITS | Encounter Summary ---
[place] [address] Care Team Providers Care Hydrodynamics Professor Name Role Phone Deborah Quiroga APRN Primary Care Provider [phone] Reason for Referral * Consultation (Routine) - Closed Specialty Diagnoses / Procedures Referred By Contac t Referred To Contact Rheumatology Diagnoses Positive FRANCISCO (antinuclear antibody) Arthralgia, unspecified joint Sandy Wu APRN [address] [place] [address] [facility] Rheumatology [address] [place] [phone] Referral ID Status Reason Start Date Expiration Date V isits Requested Visits Authorized [id number] Closed Consult, Test & Treat PCP Updated and/or Approved 01/01/2022 01/01/2023 6 6 Encounter Details Date Type Department Care Team (Latest Contact Info) Description 01/01/2022 Transcribe Orders eDH Incoming Referrals [phone] Sandy Wu APRN [address] [place], [place] [id number] Positive FRANCISCO (antinuclear antibody); Arthralgia, unspecified joint [...] 4:15 PM EDT Office Visit Dermatology at [place] [address] [facility] [place] [address] Marek Bonilla MD [address] [facility] [place] [address] 06/05/2024 11:30 AM EST Office [place] [address] Magdalena Peralta MD [facility] [place] [address] Scheduled Referrals Name Type Priority Associated Diagnoses Orde r Schedule Referral to Rheumatology Outpatient Referral Routine Positive FRANCISCO (antinuclear antibody) Arthralgia, unspecified joint Ordered: 01/01/2022 documented as of this encounter Visit Diagnoses Diagnosis Positive FRANCISCO (antinuclear antibody) Other and unspecified nonspecific immunological findings Arthralgia, unspecified joint documented in this encounter Care Teams Hydrodynamics Professor Relationship Specialty Start Date End Date Deborah Quiroga APRN PCP - General Family Medicine 03/24/16 02/04/23 documented as of this encounter
--- OUTSIDE RECORDS SUMMARY | 2024-02-17 14:26 | XMS_ITS | Encounter Summary ---
Author Organization [facility] Address [facility] [place] [address] Care Team Providers Care Ground Water Technician Name Role Phone Junaid Deborah Shields APRN Primary Care Provider [phone] Encounter Details Date Type Department Care Team (Latest Contact Info) Description 06/22/2022 10:00 AM EST Office [place] [address] Raymond Loredo MD [facility] DR [place] [address] Raynaud's phenomenon without gangrene; Positive FRANCISCO (antinuclear [...] can be done locally or here at [facility] that the current time is not particularly [...] for surgery by Dr. Rogers here at [facility]. In addition to painful dysesthesias in her [...] over radiocarpal or ulnocarpal joints. Hands: Normal sap manager and claw. SJC/TJC 0/0. Knees: Decreased flexion [...] 4:15 PM EDT Office Visit Dermatology at [place] [address] [place] [address] Marek Bonilla MD [address] [facility] [place] [address] 06/05/2024 11:30 AM EST Office [place] [address] Magdalena Peralta MD [facility] [place] [address] documented as of this encounter Visit Diagnoses Diagnosis Raynaud's phenomenon without gangrene Positive FRANCISCO (antinuclear antibody) Other and unspecified nonspecific immunological findings Primary osteoarthritis involving multiple joints Cervical disc disorder at C6-C7 level with radiculopathy documented in this encounter Care Teams Ground Water Technician Relationship Specialty Start Date End Date Deborah Quiroga APRN PCP - General Family Medicine 03/24/16 02/04/23 documented as of this encounter
--- OUTSIDE RECORDS SUMMARY | 2024-02-17 14:27 | XMS_ITS | Encounter Summary ---
Author Organization [facility] [place] [address] Care Team Providers Care Software Test Engineer Name Role Phone Deborah Quiroga ANURAG Primary Care Provider [phone] Encounter Details Date Type Department Care Team (Late st Contact Info) Description 12/04/2016 External Results Hematology [place] [address] Teresa Dodson RN Social History [...] PM EDT Office Visit Dermatology at [address] [place] [address] Marek Bonilla MD [address] [facility] [place] [address] 06/05/2024 11:30 AM EST Office [place] [address] Magdalena Peralta MD [facility] [place] [address] documented as of this encounter Procedures Procedure Name Priority Date/Time Associated Diagnosis Comments CBC (WITH DIFF) Routine 12/03/2016 11:35 AM EDT COMPREHENSIVE METABOLIC PANEL (NON-FASTING) Routine 12/03/2016 11:35 AM EDT documented in this encounter Results * (ABNORMAL) Comprehensive metabolic panel (non-fasting) (12/03/2016 11:35 AM EDT) Glucose Lvl 85(Externa l Lab) BUN 11(Externa l Lab) Creatinine 0.93(Exter nal Lab) Sodium 140(Bulk Plant Agent al Lab) Potassium 4.2(Bulk Plant Agent al Lab) Chloride 104(Bulk Plant Agent al Lab) Calcium 10.0(Exter nal Lab) Total Protein 8.1(Bulk Plant Agent al Lab) Albumin 3.5(Bulk Plant Agent al Lab) Total Bilirubin 0.25(Exter nal Lab) Alk Phos 96(Externa l Lab) AST 18(Externa l Lab) ALT 21(Externa l Lab) Blood specimen (specimen) 12/03/2016 11:35 AM EDT Historical Provider CHEMISTRY ORDERAB LES * (ABNORMAL) CBC (with Diff) (12/03/2016 11:35 AM EDT) WBC 1.61(EXTER NAL/ABN) 4.4 - 10.8 Hemoglobin 13.0(Exter nal Lab) Hematocrit 39.8(Exter nal Lab) Platelets 248(Bulk Plant Agent al Lab) Neutr Abs (ANC) 0.5(SAUSAGE MEAT TRIMMER AL/ABN) Blood specimen (specimen) 12/03/2016 11:35 AM EDT Historical Provider HEMATOLOGY ORDERA BLES documented in this encounter Visit Diagnoses Not on filedocumented in this encounter Care Teams Software Test Engineer Relationship Specialty Start Date End Date Deborah Quiroga, SENIOR CLINICAL PROJECT MANAGER PCP - General Family Medicine 03/24/16 02/04/23 documented as of this encounter
--- OUTSIDE RECORDS SUMMARY | 2024-02-17 14:27 | XMS_ITS | Encounter Summary ---
Author Organization [facility] [place] [address] Care Team Providers Care Surgical Endoscopist Name Role Phone Deborah Quiroga APRN Primary Care Provider [phone] Encounter Details Date Type Department Care Team (Late st Contact Info) Description 02/06/2020 Orders Only Hematology [place] [address] [facility] [place] [address] Neutropenia, unspecified type Social History Tobacco Use [...] PM EDT Office Visit Dermatology at [address] [place] [address] Marek Bonilla MD [address] [facility] DERMATOLOGY [place], [place] [address] 06/05/2024 11:30 AM EST [place] [address] Magdalena Peralta MD [facility] [address] documented as of this encounter Visit Diagnoses Diagnosis Neutropenia, unspecified type documented in this encounter Care Teams Surgical Endoscopist Relationship Specialty Start Date End Date Deborah Quiroga APRN PCP - General Family Medicine 03/24/16 02/04/23 documented as of this encounter
--- OUTSIDE RECORDS SUMMARY | 2024-02-17 14:27 | XMS_ITS | Encounter Summary ---
Author Organization [facility] [place] [address] Care Team Providers Care Powerhouse Mechanic Supervisor Name Role Phone Ashley Quirogan [place] ANURAG Primary Care Provider [phone] Reason for Visit * Reason Onset Date Comments Results 12/03/2016 Encounter Details Date Type Department Care Team (Late Contact Info) Description 12/03/2016 Telephone Hematology [place] [address] Yudith Valentine RN Results Social History Tobacco [...] EDT RN received call from Maddy at [facility] reporting critical WBC at 1.61, and ANC of 0.5. She will fax the full results to this office for education reviewer notified DR Borjas of above results documented in this encounter Plan of Treatment Upcoming Encounters Date Type Department Care Team (Late st Contact Info) Description 02/22/2024 4:15 PM EDT Office Visit Dermatology at [address] [address] Marek Bonilla MD [address] [place] [address] [place] [address] 06/05/2024 11:30 AM EST Office [place] [address] Magdalena Peralta MD [facility] [place] [address] documented as of this encounter Visit Diagnoses Not on filedocumented in this encounter Care Teams Powerhouse Mechanic Supervisor Relationship Specialty Start Date End Date Deborah Quiroga APRN PCP - General Family Medicine 03/24/16 02/04/23 documented as of this encounter
--- OUTSIDE RECORDS SUMMARY | 2024-02-17 14:27 | XMS_ITS | Encounter Summary ---
[place] [address] Care Team Providers Care Mail Courier Name Role Phone Deborah Quiroga Cornelius OSBORN Primary Care Provider [phone] Encounter Details Date Type Department Care Team (Late st Contact Info) Description 11/11/2020 Refill Dermatology at [address] [phone] Taylor Malone, PEDICURIST Social History Tobacco Use Types Packs/Day Years [...] PM EDT Office Visit Dermatology at [address] [address] Marek Bonilla MD [address] [place] [address] [place] [address] 06/05/2024 11:30 AM EST Office [place] [address] Magdalena Peralta MD [facility] [place] [address] documented as of this encounter Visit Diagnoses Not on filedocumented in this encounter Care Teams Mail Courier Relationship Specialty Start Date End Date Deborah Quiroga APRN PCP - General Family Medicine 03/24/16 02/04/23 documented as of this encounter
--- OUTSIDE RECORDS SUMMARY | 2024-02-17 14:27 | XMS_ITS | Encounter Summary ---
[place] [address] Care Team Providers Care Take Away Man Name Role Phone JunaidDeborah APRN Primary Care Provider [phone] Reason for Visit * Reason Comments Follow-up Encounter Details Date Type Department Care Team (Late st Contact Info) Description 01/10/2021 4:30 PM EDT Office Visit Dermatology at [address] [phone] Marek Bonilla MD [address] [facility] DERMATOLOGY [place], [place] [address] Rosacea Social History Tobacco Use Types Packs/Day [...] cutaneous and ocular 2. Previously told by nick setter that she had corneal tears from her [...] 3 refills. Will call this in her [facility] in [place] 3. Continue metronidazole 0.75% gel applying once [...] 4:15 PM EDT Office Visit Dermatology at [address] [address] Marek Bonilla MD [address] [place] [address] [place] [address] 06/05/2024 11:30 AM EST Office Visit [place] [address] Magdalena Peralta MD [facility] [place] [address] documented as of this encounter Visit Diagnoses Diagnosis Rosacea documented in this encounter Care Teams Take Away Man Relationship Specialty Start Date End Date Deborah Quiroga APRN PCP - General Family Medicine 03/24/16 02/04/23 documented as of this encounter
--- OUTSIDE RECORDS SUMMARY | 2024-02-17 14:27 | XMS_ITS | Encounter Summary ---
[place] [address] Care Team Providers Care Sales And Marketing Administrator Name Role Phone Ashley Quirogan Cornelius ANURAG Primary Care Provider [phone] Reason for Visit * Reason Onset Date Comments Medical Care Coordination 07/27/2017 Encounter Details Date Type Department Care Team (Late st Contact Info) Description 07/27/2017 Telephone Hematology [place] [address] Alexandrea Greenwood RN Medical Care Coordination Social [...] 07/27/2017 12:25 PM EST Message received from secretary of state: Injection/Infusion Referral Call placed to [facility] @ [phone] Spoke w/ INSPECTION MANAGER Services to be provided for pt are: CBC/CMP DONE Q6 MONTHS X2 STARTING NOVEMBER 2017 TECH confirmed they would provide services to pt - I CALLED PT, LM. Pt orders faxed to [phone] documented in this encounter Plan of Treatment Upcoming Encounters Date Type Department Care Team (Late st Contact Info) Description 02/22/2024 4:15 PM EDT Office Visit Dermatology at [place] [address] [place] [address] Marek Bonilla MD [address] [facility] [place] [address] 06/05/2024 11:30 AM EST Office [place] [address] Magdalena Peralta MD [facility] [place] [address] documented as of this encounter Visit Diagnoses Not on filedocumented in this encounter Care Teams Sales And Marketing Administrator Relationship Specialty Start Date End Date Deborah Quiroga APRN PCP - General Family Medicine 03/24/16 02/04/23 documented as of this encounter
--- OUTSIDE RECORDS SUMMARY | 2024-02-17 14:27 | XMS_ITS | Encounter Summary ---
Author Organization [facility] [place] [address] Care Team Providers Care Card Table Attendant Name Role Phone Deborah Quiroga APRN Primary Care Provider [phone] Encounter Details Date Type Department Care Team (Late st Contact Info) Description 06/18/2017 External Results Hematology [place] [address] Alexandrea Greenwood RN Neutropenia, unspecified [...] 4:15 PM EDT Office Visit Dermatology at [address] [place] [address] Marek Bonilla MD [address] [facility] [place] [address] 06/05/2024 11:30 AM EST Office [place] [address] Magdalena Peralta MD [facility] DR RHEUMATOLOGY [place] [address] documented as of this encounter Procedures Procedure [...] MD CHEMISTRY ORDERABL ES Performing Organization Address [facility] Co de Phone Number EXTERNAL LAB * (ABNORMAL) CBC (with Diff) (06/11/2017 1:19 PM EST) Pathologist [facility] WBC 2.28(EXTER NAL/ABN) 4.4 - 10.8 EXTERNAL [...] type documented in this encounter Care Teams Card Table Attendant Relationship Specialty Start Date End Date Deborah Quiroga APRN PCP - General Family Medicine 03/24/16 02/04/23 documented as of this encounter
--- OUTSIDE RECORDS SUMMARY | 2024-02-17 14:27 | XMS_ITS | Encounter Summary ---
Author Organization [facility] [place] [address] Care Team Providers Care Deep Fryer Assembler Name Role Phone Junaid Deborah Shields APRN Primary Care Provider [phone] Encounter Details Date Type Department Care Team (Late st Contact Info) Description 03/04/2020 External Results Hematology [place] [address] Thershaniqu[employer]humi Social History Tobacco Use [...] PM EDT Office Visit Dermatology at [address] [place] [address] Marek Bonilla MD [address] [facility] [place] [address] 06/05/2024 11:30 AM EST Office [place] [address] Magdalena Peralta MD [facility] [place] [address] documented as of this encounter Procedures Procedure Name Priority Date/Time Associated Diagnosis Comments LIPID PANEL (NO REFLEX) Routine 02/28/2020 7:45 AM EDT CBC (WITH DIFF) Routine 02/28/2020 7:45 AM EDT COMPREHENSIVE METABOLIC PANEL (NON-FASTING) Routine 02/28/2020 7:45 AM EDT documented in this encounter Results * (ABNORMAL) Lipid Panel (No Reflex) (02/28/2020 7:45 AM EDT) Chol, Total 179 <200 EXTERNAL LAB Triglycerides 254(BOTTLE DEALER AL/ABN) <150 EXTERNAL LAB HDL 50 40 - 60 EXTERNAL LAB LDL Cholesterol 79 <100 EXTERNAL LAB Blood specimen (specimen) 02/28/2020 7:45 AM EDT Historical Provider MD CHEMISTRY ORDERAB LES Performing Organization Address City/[facility]/ZIP Co de Phone Number EXTERNAL LAB * (ABNORMAL) Comprehensive metabolic panel (non-fasting) (02/28/2020 7:45 AM EDT) Glucose Lvl 109(BOTTLE DEALER AL/ABN) 74 - 106 EXTERNAL LAB BUN [...] MD CHEMISTRY ORDERAB LES Performing Organization Address City/[facility]/ZIP Co de Phone Number EXTERNAL LAB * [...] on filedocumented in this encounter Care Teams Deep Fryer Assembler Relationship Specialty Start Date End Date Deborah Quiroga, HAT FINISHING MATERIALS PREPARER PCP - General Family Medicine 03/24/16 02/04/23 documented as of this encounter
--- OUTSIDE RECORDS SUMMARY | 2024-02-17 14:27 | XMS_ITS | Encounter Summary ---
Author Organization [facility] Address [facility] [place] [address] Care Team Providers Care Ethylene Compressor Operator Name Role Phone Deborah Quiroga ANURAG Primary Care Provider [phone] Encounter Details Date Type Department Care Team (Late Contact Info) Description 02/07/2020 Telephone Hematology [place] [address] Ellen Rios RN Social History Tobacco Use [...] 02/07/2020 12:59 PM EDT Message received from territory sales executive: Injection/Infusion Referral Services to be provided for pt are: CBC only at [facility]- Pt will go by 02/27 Orders faxed to [phone]). Spoke with pt. She will call [facility] directly to schedule a time that works for her. documented in this encounter Plan of Treatment Upcoming Encounters Date Type Department Care Team (Late Contact Info) Description 02/22/2024 4:15 PM EDT Office Visit Dermatology at [address] [address] Marek Bonilla MD [address] [facility] [place] [address] 06/05/2024 11:30 AM EST [place] [address] Magdalena Peralta MD [facility] [place] [address] documented as of this encounter Visit Diagnoses Not on filedocumented in this encounter Care Teams Ethylene Compressor Operator Relationship Specialty Start Date End Date Deborah Quiroga APRN PCP - General Family Medicine 03/24/16 02/04/23 documented as of this encounter
--- OUTSIDE RECORDS SUMMARY | 2024-02-17 14:27 | XMS_ITS | Encounter Summary ---
[place] [address] Care Team Providers Care Refrigerator Assembler Name Role Phone Ashley Quirogazac Shields APRN Primary Care Provider [phone] Reason for Visit * Reason Comments Skin Check Encounter Details Date Type Department Care Team (Late st Contact Info) Description 11/11/2020 10:45 AM EDT Office Visit Dermatology at [address] [address] Marek Bonilla MD [address] [facility] DERMATOLOGY [place], [place] [address] Rosacea; Acrochordon Social History Tobacco Use Types [...] Discussed the possibility of getting this through [facility] or from the [facility] pharmacy if necessary. She has not yet [...] 4:15 PM EDT Office Visit Dermatology at [address] [address] Marek Bonilla MD [address] [place] [address] [place] [address] 06/05/2024 11:30 AM EST Office [place] [address] Magdalena Peralta MD [facility] [place] [address] documented as of this encounter Visit Diagnoses Diagnosis Rosacea Acrochordon Unspecified hypertrophic and atrophic condition of skin documented in this encounter Care Teams Refrigerator Assembler Relationship Specialty Start Date End Date Deborah Quiroga APRN PCP - General Family Medicine 03/24/16 02/04/23 documented as of this encounter
--- OUTSIDE RECORDS SUMMARY | 2024-02-17 14:27 | XMS_ITS | Encounter Summary ---
Author Organization [facility] Address [facility] [place] [address] Care Team Providers Care Paint Specialist Name Role Phone Ashley Quirogan Sylvia ANURAG Primary Care Provider [phone] Reason for Referral * Consultation (Routine) - Specialty Diagnoses / Procedures Referred By Contact Referred To Contact Cardiac Rehabilitation Diagnoses S/P AVR Alirio Esparza MD [facility] DR [place] [address] Cardiac Rehab, [address] [place] [address] Referral ID Status Reason Start Date Expiration Date V isits Requested Visits Authorized [id number] Consult, Test & Treat 09/25/2016 03/24/2017 36 36 Reason for Visit * Auth/Cert Specialty Diagnoses / Procedures Referred By Crispin maxwell Referred To Contact Diagnoses Aortic stenosis Procedures PRO REPLACE AORT VALV, PROSTH VALV @REPLACE AORTIC VALVE, OPEN, W\CPB, W\PROSTHETIC VALVE (WRVU 41.32) Referral ID Status Reason Start Date Expiration Date Visits Re quested Visits Authorized [id number] 1 1 Encounter Details Date Type Department Care Team (Latest Contact Info) Description 09/21/2016 6:08 AM EST - 09/25/2016 4:33 PM EST Hospital Encounter Inter[place] [id number] Alirio Esparza MD [facility] DR [place] [address] Aortic valve stenosis, unspecified etiology; S/P AVR [...] Patient Age: 61 y.o. Birthdate: 1955 Language: Faroese Race: White Ethnicity: Not nor Admit Date: 09/21/2016 Discharge Date: 09/25/2016 Attending Physician: Alirio Esparza MD Follow-up Recommendations for Providers: Please continue routine management of cardiovascular risk factors including blood pressure, lipids,glucose, etc. Please note any changes to medications. Patient to follow-up with PCP, Deborah Quiroga APRN, in 1-2 weeks. Patient to follow-up with Wildlife Protector, Dr. Antelmo Burrell, in two weeks. Patient to follow-up with Cardiac Surgery, Dr. Alirio Esparza, to be scheduled for before 10/19/2016, with CXR, EKG, and Echo. Inpatient Provider Contact Information: [facility] Section of Cardiac Surgery [facility] [address] FAX [phone] Discharge Diagnoses (Hospital Problems) Primary Diagnoses: Secondary [...] 41.32) performed by Alirio Esparza MD at [facility] MAIN OR ??? Pro aortoplas for supravalv sten N/A 09/21/2016 @AORTOPLASTY FOR SUPRAVALVULAR STENOSIS (WRVU 29.33) performed by Alirio Esparza MD at [facility] MAIN OR Prior To Admission Medications [...] Hospital Course: Purnima Thacker was admitted to [facility] on 09/21/2016 via the Same [...] Alirio Esparza and/or the Cardiac Surgery Physician Histology Technician Team may be reached at . Antibiotic prophylaxis: You will need to take antibiotics prior to many invasive tests and treatments, such as dental cleaning, which should be done every 6 months. Your primary care physician or your dentist can prescribe this medication. Please refer to the card with the [employer] Guidelines for more information. You have been provided with 3 copies of this card. Keep one for your self. Give one to your primary care physician and one to your dentist. Please refer to the [employer] Guidelines for more information. Good [...] Dr. Alirio Jones. You may use a Salix Track or treadmill but avoid any pulling [...] should resume a low fat, low cholesterol, [employer] Diet. Driving: No driving until [...] the outpatient Phase 2 Cardiac Rehabilitation at [facility]. The patient agrees to a referral to this program. The referral will be sent at discharge and the patient should be contacted by the program within 1- 2 weeks from discharge. Future Appointments and Orders Future Appointments Provider Department Dept Phone 11/20/2016 11:30 AM Markel Borjas MD [facility] [phone] Future Orders Complete By Expires Echocardiogram Transthoracic([place]) [PZV411 Custom] 10/18/2016 (Approximate) 09/18/2017 Process Instructions: If the Echocardiogram is to be PERFORMED in a location other than [place]--STOP and order [id number], Echocardiogram South/External. Scheduling Instructions: Questions: Is a Bubble Study requested?: No Does the patient have Congenital Heart Disease?: No Does patient require sedation?: None GA rationale: Should this service be billed to the research sponsor?: EKG 12 Lead [EKG1 Custom] 10/18/2016 (Approximate) 09/25/2017 Process Instructions: Scheduling Instructions: Questions: Which location will this be performed?: [place] Is a rhythm strip needed?: No If EKG Reason is Pre-op Evaluation, indicate diagnosis for surgery.: Should this service be billed to the research sponsor?: XR Chest PA & Lateral (Generic) [[id number] Custom] 10/18/2016 (Approximate) 09/25/2017 Process Instructions: Scheduling Instructions: Questions: Where will study be performed?: [facility]- Radiology Portable exam?: No Reason for exam and clinical history: s/p AVReplacement, patch annuloplasty 1 month f/u Other pertinent information: Stat read required?: Date of injury if applicable: Requested Time: Referral to Cardiac Rehab [XPG593 Custom] As directed Process Instructions: If no progress note charted, please enter Clinical details in comments. Scheduling Instructions: Questions: My question or request is: s/p AVR. Cardiac rehab at [facility] Referral to Home Health - at DISCHARGE [[id number] CPT(R)] As directed Process Instructions: Scheduling Instructions: Comments: DOCUMENTATION FOR VNA SERVICES (INCLUDING THOSE PATIENTS WITH MEDICARE COVERAGE REQUIRING HOME VNA SERVICES AND/OR HOSPICE SERVICES) PATIENT'S LOCATION: Purnima Thacker [address] [place] [phone] (home) No relevant phone numbers on file. Dressmaker Garment Fitter's Name: self In discussion with the attending physician, it is certified that this patient is under their care and that they, or a Nurse Practitioner, or Physician Histology Technician who is working directly with them, hada [...] for services as follows: HOME HEALTH AGENCY: [facility]. PHONE: [phone] FAX: [phone] RN orders: Cardiopulmonary assessment, incisional assessment, assess [...] issues please call the Cardiac SurgeryOffice at [phone] FOR MEDICARE ONLY: In discussion with the [...] noted. Questions: Agency name and contact information: [facility] VNA Patient location post discharge: home What services are requested: Registered Nurse Physical Therapy Occupational Therapy Start date: Responsible MD post discharge contact info: Arrangements for VNA/home care: As above. VN RN OR PCP TO PLEASE REMOVE CHEST TUBE SUTURES ON OR AFTER 09/30/16 Signed: Crispin Aranda PA-C 09/25/2016 [facility] Section of Cardiac Surgery [facility] [address] FAX [phone] Date: 09/25/2016 CC: ANURAG Alford Caryn E, APRN [address] [place] [address] documented in this encounter Discharge Instructions * [...] Alirio Esparza and/or the Cardiac Surgery Physician Histology Technician Team may be reached at . Antibiotic prophylaxis: You will need to take antibiotics prior to many invasive tests and treatments, such as dental cleaning, which should be done every 6 months. Your primary care physician or your dentist can prescribe this medication. Please refer to the card with the [employer] Guidelines for more information. You have been provided with 3 copies of this card. Keep one for your self. Give one to your primary care physician and one to your dentist. Please refer to the [employer] Guidelines for more information. Good [...] Dr. Alirio Jones. You may use a Salix Track or treadmill but avoid any pulling [...] should resume a low fat, low cholesterol, [employer] Diet. Driving: No driving until [...] the outpatient Phase 2 Cardiac Rehabilitation at [facility]. The patient agrees to a referral to [...] PM EST Cardiac Surgery Progress Note: ID: [id number] S/p AVR, patch aortoplasty POD#2. PMH of [...] Gas) No results found for: PHART, PO2ART, AGQ0TEM Assessment/Plan: TPW out this am. (+) BM. [...] Signed: Crispin Aranda PA-C 09/24/2016 Team pager: [phone]; [phone] after 5pm [facility] Section of Cardiac Surgery * Leonor Henson, INSTRUCTIONAL TECHNOLOGY TEACHER - 09/23/2016 10:48 AM EST Cardiac Surgery Progress Note: ID: [id number] s/p AVR, patch aortoplasty POD#2. PMH of Neutropenia, HLD, HTN, Depression, obesity,. EF- 60% 24 Hour Events: transferred from [facility] to [facility], doing well, no overnight [...] Gas) No results found for: PHART, PO2ART, SVB2TVB Assessment/Plan: s/p AVR, patch aortoplasty POD#2. PMH of Neutropenia, HLD, HTN, Depression, obesity, . Transferred from [facility] yesterday and doing well. Pathway. Will [...] Surgeon on rounds. Signed: Leonor Henson APRN [facility] Section of Cardiac Surgery Date: 09/23/2016 * Nico Palacios PA - 09/22/2016 9:56 AM EST Cardiac Surgery Progress Note: ID: [id number] s/p AVR, patch aortoplasty POD#1. PMH of [...] NT, ND, soft. Ext: Moves all extremities. [place], well perfused. Incisions: C/D/I Tubes/Lines/Drains: PIV, leanna, [...] Attending Surgeon on rounds. Signed: EKATERINA KIM [facility] Section of Cardiac Surgery Date: [...] health, home with outpatient services [facility] Pager: [phone] Inpatient Physical Therapy Patient status, treatment interventions, and goals discussed with student. I am in agreement with all details and associated flowsheet rows as documented and was present for all aspects of the patient treatment session. Nery Jaramillo, CREATIVE COORDINATOR Pager [phone] Problem: Acute Rehab Services Goal & Intervention Plan Goal: Bed Mobility Goal Stand Alone Therapy Goal Outcome: Ongoing (Interventions Implemented as Appropriate) 09/22/16 16109/25/16 0947 Bed Mobility Goal Bed Mobility Goal, Time to Achieve 4 days -- Bed Mobility Goal, Activity Type scoot/bridge;supine to sit/sit to supine -- Bed Mobility Goal, [place] Level independent -- Bed Mobility Goal, Additional [...] Achieve 4 days -- Gait Training Goal, [place] Level independent -- Gait Training Goal, Distance [...] as Appropriate) 09/23/16 0310 Pressure Injury Risk (Jordni Scale) (Adult,Obstetrics,Pediatric) Skin Integrity making progress toward [...] home with home health Lalitha BALTAZAR Pager: [phone] Inpatient Physical Therapy Patient status, treatment interventions, and goals discussed with student. I am in agreement with all details and associated flowsheet rows as documented and was present for all aspects of the patient treatment session. Nery Jaramillo PTA Pager [phone] Problem: Acute Rehab Services Goal & Intervention Plan Goal: Bed Mobility Goal Stand Alone Therapy Goal Outcome: Ongoing (Interventions Implemented as Appropriate) 09/22/16 1611 09/23/16 1412 Bed Mobility Goal Bed Mobility Goal, Time to Achieve 4 days -- Bed Mobility Goal, Activity Type scoot/bridge;supine to sit/sit to supine -- Bed Mobility Goal, [place] Level independent -- Bed Mobility Goal, Additional [...] Achieve 4 days -- Gait Training Goal, [place] Level independent -- Gait Training Goal, Distance [...] days -- Transfer Training Goal, Activity Type orm-rg-uzmcf/ndvbt-zo-wzy;lyn-qe-aekwh/ljmre-kd-vdy -- Transfer Train Goal, [place] Level independent -- Transfer Training Goal, Additional Goal abides sternal precautions -- Transfer Training Goal, Outcome -- goal met * Consult Note - Jana Crenshaw RN - 09/23/2016 9:41 AM EST [facility] CARDIAC REHABILITATION Purnima Thacker was seen today regarding participation in the outpatient Phase 2 Cardiac Rehabilitation at [facility]. The patient agrees to a referral to this program. The referral will be sent at discharge and the patient should be contacted by the Program within 1- 2 weeks from discharge. * Plan of Care - Marcie Frazier RN - 09/23/2016 3:51 AM EST Problem: Patient Care Overview Goal: Plan of Care Review Outcome: Ongoing (Interventions Implemented as Appropriate) 09/23/16 2687 Coping/Psychosocial Plan Of Care Reviewed With patient [...] cleaned thoroughly. Will ask team to pull la in the morning. PLAN MOVING FORWARD: Pull [...] Another Service: (cardiac rehab) NICOLE HERNANDEZ, PT Pager:[phone] Inpatient Physical Therapy Problem: Acute Rehab Services Goal & Intervention Plan Goal: Bed Mobility Goal Stand Alone Therapy Goal Outcome: Ongoing (Interventions Implemented as Appropriate) 09/22/16 1611 Bed Mobility Goal Bed Mobility Goal, Time to Achieve 4 days Bed Mobility Goal, Activity Type scoot/bridge;supine to sit/sit to supine Bed Mobility Goal, [place] Level independent Bed Mobility Goal, Additional Goal able to abide sternal precautions during transfers Goal: Gait Training Goal Stand Alone Therapy Goal Outcome: Ongoing (Interventions Implemented as Appropriate) 09/22/16 1611 Gait Training Goal Gait Training Goal, Date Established 09/22/16 Gait Training Goal, Time to Achieve 4 days Gait Training Goal, [place] Level independent Gait Training Goal, Distance to Achieve ascend and descends 2 steps independently Goal: Goal Transfer Training Stand Alone Therapy Goal Outcome: Ongoing (Interventions Implemented as Appropriate) 09/22/16 1611 Goal Transfer Training Transfer Training Goal, Time to Achieve 4 days Transfer Training Goal, Activity Type jgc-jr-mdkxn/uomag-xw-tex;mql-pq-wjdmm/iwhhe-af-egf Transfer Train Goal, [place] Level independent Transfer Training Goal, Additional Goal [...] of completing AD's at home, chooses her jbqjza-hu-hha, Martha Thacker (home) for her DPOAH, 2nd choice in friend[place] [facility] Current Coping/Education/Information Needs: patient sitting up in recliner, awake, alert, calmly answers questions appropriately, demonstrates understanding of her current health situation. [facility]. Current Functional Ability: 1 assist, [...] close by, Rashad & Raymond, and her kntpcm-ta-doa Martha Thacker who she has chosen to be her DPOA. Also has a friend Nitesh Leroy who lives in [place], [place], also her DPOAH choice. Behavioral Health History: none on file in [facility] Substance Use/Abuse: none on file in [facility] Other Pertinent/Service Specific Information: none Health/Prescription Coverage: Primary Insurance: [employer] Secondary Insurance: none Prescription Coverage: yes, per patient no issues Preferred Pharmacy: ?? Other: none Primary Care Provider: Deborah Quiroga APRN [phone] Patient/Caregiver Goals of Treatment: per medical team recommendations at discharge for CT surgery Potential Needs for Transition of Care: Rehab/SNF: TBD Home Health: TBD DME: no Dialysis: no Community Resources: non3 Transportation: ride home with a friend Other: none Anticipated Barriers to Discharge/Special Considerations: none anticipated at this time Plan: patient will need VNA services at discharge. The patient/billing representative has been provided a list of Home Health Agencies/DME vendors which servetheir preferred geographic area. A letter describing our affiliations was reviewed with them and they were educated about their right to choose where referrals are placed. Patient requests referral to: [facility] [employer]. PHONE: [phone] FAX: [phone] Expected date of discharge: Fri/Sat? CM called VNA to confirm referral, talked with VALDO Bunn/intake who stated she was familiar w/patient & would monitor her progress through curaspan. Referral routed to the Food Safety Manager for matching with agency/vendor and to provide any required information. A member of the Care Management team will continue to monitor progress, follow for continuity of care and assist with transition of care planning. Amanda Moreno RN Pager: [phone] * Op Note - Alirio Esparza MD - 09/21/2016 12:53 PM EST 09/23/2016 Purnima Thacker 1955 [id number] Preoperative Diagnosis: Symptomatic aortic stenosis Postoperative Diagnosis: Symptomatic aortic stenosis Procedure: Aortic valve replacement: Bovine Pericardial 25 mm Surgeon: Alirio Esparza M.D. Histology Technician: Philip BALL Anesthesia: General endotracheal anesthesia Drains: [...] Operative Note Patient Name: Purnima Thacker : [id number] MR#: [id number] Case Date: 09/21/2016 Surgeon: Surgeon(s) and Role: * Alirio Esparza MD - Primary * Nico Palacios PA - Physician Histology Technician Preoperative diagnosis: Postoperative diagnosis: Procedure(s) (LRB): @REPLACE [...] PM EDT Office Visit Dermatology at [address] [address] Marek Bonilla MD [address] [facility] [place] [address] 06/05/2024 11:30 AM EST [place] [address] Magdalena Peralta MD [facility] [place] [address] Scheduled Orders Name Type Priority Associated Diagnoses [...] IMPLANTABLE DEVICES SCAN 09/26/2016 12:00 AM EST AUTOMOTIVE TEACHER SCAN 09/26/2016 12:00 AM EST POTASSIUM Routine [...] SCAN EXT O RDR/RSLT * SCAN DOC: AUTOMOTIVE TEACHER (09/26/2016 12:00 AM EST) Anatomical Region Laterality Modality Other Narrative 09/26/2016 12:00 AM EST Ordered by an unspecified provider. Scanning Provider MEDIA MGR SCAN EXT O RDR/RSLT * Potassium (09/25/2016 4:32 AM EST) Pathologist [facility] Potassium 4.4 3.5 - 5.0 mmol/L WHITE [...] Lab Alirio Esparza MD CHEMISTRY ORDERABLE S [facility] [place] [address] * (ABNORMAL) Differential, Automated (09/24/2016 9:56 AM EST) Neutrophils % 76.8 % [facility] Neutr Abs (ANC) 7.79(H) 1.70 - 6.10 x10(3)/mc L [facility] Lymphocytes % 11.1 % [facility] Lymphocytes Abs 1.1 0.9 - 3.2 x10(3)/mc L [facility] Monocytes % 8.5 % [facility] Monocyte Abs 0.9 0.3 - 0.9 x10(3)/mc L [facility] Eosinophils % 0.5 % [facility] Eosinophils Abs 0.0 0.0 - 0.4 x10(3)/[facility] LABORATORY Basophils % 0.2 % [facility] Basophils Abs 0.0 0.0 - 0.1 x10(3)/[facility] LABORATORY Immature Gran % 2.90 % [facility] Comment: Immature granulocytes(IG's)percentage and absolute count will include metamyelocytes, myelocytes, and promyelocytes. Blood smears from CBCs yielding IG's will be scanned manually for concordance. If this scan disagrees with the automated IG or if promyelocytes are noted, a manual differential will be performed. Amanda Gran Abs 0.29(H) 0.00 - 0.04 x10(3)/[facility] LABORATORY Blood specimen (specimen) 09/24/2016 9:56 AM EST 09/24/2016 10:04 AM EST Narrative Resulting Agency Comment Spec In Lab Alirio Esparza MD HEMATOLOGY ORDERABL ES [facility] [place] [address] * (ABNORMAL) Hemogram (09/24/2016 9:56 AM EST) WBC 10.1(H) 4.0 - 9.5 x10(3)/[facility] LABORATORY RBC 2.87(L) 4.00 - 5.21 x10(6)/[facility] LABORATORY Hemoglobin 9.4(L) 11.7 - 15.5 gm/dL [facility] Hematocrit 28.3(L) 35.7 - 45.8 % [facility] MCV 98.6(H) 82.6 - 94.4 fL [facility] MCH 32.8(H) 27.1 - 32.0 pg [facility] MCHC 33.2 31.7 - 35.0 gm/dL [facility] Platelets 141(L) 145 - 357 x10(3)/[facility] LABORATORY RDWSD 45.0 37.0 - 46.0 fL [facility] RDWCV 12.6 11.5 - 14.1 % [facility] MPV 9.4 7.6 - 12.9 fL [facility] nRBC % Auto 1.1 % [facility] nRBC Abs Auto 0.110(H) 0.000 - 0.000 x10(3)/[facility] LABORATORY Blood specimen (specimen) 09/24/2016 9:56 AM EST 09/24/2016 10:04 AM EST Narrative Resulting Agency Comment Spec In Lab Alirio Esparza MD HEMATOLOGY ORDERABL ES [facility] [place] [address] * (ABNORMAL) Basic Metabolic Panel (non-fasting) (09/24/2016 9:56 AM EST) Glucose Lvl 111 65 - 199 mg/dL [facility] Comment:Diabetes: >=200 mg/d L plus symptoms BUN 23(H) 8 - 18 mg/dL [facility] Comment:result rechecked-ART Creatinine 0.89 0.70 - 1.20 mg/dL [facility] Comment: Please note that the pediatric reference intervals supplied above were not validated at [facility]. Results from pediatric patients should be interpreted in conjunction to the patient's age, height and muscle mass. Sodium 138 135 - 145 mmol/L WHITE [...] questions. Chloride 98 98 - 107 mmol/L [facility] CO2 26 22 - 31 mmol/L [facility] Anion Gap 14 5 - 15 mmol/L [facility] Calcium 9.1 8.5 - 10.5 mg/dL [facility] Estimated GFR >60 >=60 [facility] Comment: This estimated GFR [...] the following links into your internet browser. [email or web address] Blood specimen (specimen) 09/24/2016 9:56 AM EST 09/24/2016 10:04 AM EST Narrative Resulting Agency Comment Spec In Lab Alirio Esparza MD CHEMISTRY ORDERABLE S [facility] [place] [address] * XR Chest PA & Lateral (Generic) [...] EST) Potassium 4.5 3.5 - 5.0 mmol/L [place] [...] Lab Alirio Esparza MD CHEMISTRY ORDERABLE S [facility] [place] [address] * POCT Glucose (09/22/2016 8:17 AM EST) POC Glucose 131 65 - 199 mg/dL [facility] Comment: Supplemental ranges: <140 mg/dL before meals <180 mg/dL all other times of the day Blood specimen (specimen) 09/22/2016 8:17 AM EST 09/22/2016 8:17 AM EST Narrative Authorizing Provider Result Slade Esparza MD POINT OF CARE TEST ORDERABLES [facility] [place] [address] * POCT Glucose (09/22/2016 4:01 AM EST) POC Glucose 135 65 - 199 mg/dL [facility] Comment: Supplemental ranges: <140 mg/dL before meals <180 mg/dL all other times of the day Blood specimen (specimen) 09/22/2016 4:01 AM EST 09/22/2016 4:01 AM EST Alirio Esparza MD POINT OF CARE TEST ORDERABLES Performing Organization Address [facility] Co de Phone Number [facility] [place] [address] * Scan, Peripheral Blood (09/22/2016 4:00 AM EST) Plat Estimate Normal [facility] RBC Morphology Abnormal [facility] Macrocytes 1-5 /HPF [facility] Giant Platelets Less than 1 /HPF [facility] Blood specimen (specimen) 09/22/2016 4:00 AM EST 09/22/2016 4:34 AM EST Narrative Resulting Agency Comment Spec In Lab Alirio Esparza MD HEMATOLOGY ORDERABL ES Performing Organization Address [facility] Co de Phone Number [facility] [place] [address] * Electrolytes panel (09/22/2016 4:00 AM EST) Sodium 145 135 - 145 mmol/L [place] [...] questions. Chloride 107 98 - 107 mmol/L [facility] CO2 24 22 - 31 mmol/L [facility] Anion Gap 14 5 - 15 mmol/L [facility] Blood specimen (specimen) Venous Draw / Unknown 09/22/2016 4:00 AM EST 09/22/2016 4:34 AM EST Narrative Resulting Agency Comment Spec In Lab Alirio Esparza MD CHEMISTRY ORDERABLE S Performing Organization Address City/[facility] Co de Phone Number [facility] [place] [address] * (ABNORMAL) Differential, Automated (09/22/2016 4:00 AM EST) Neutrophils % 70.9 % [facility] Neutr Abs (ANC) 5.33 1.70 - 6.10 x10(3)/mc L [facility] Lymphocytes % 9.1 % [facility] Lymphocytes Abs 0.7(L) 0.9 - 3.2 x10(3)/[facility] Monocytes % 18.0 % [facility] Monocyte Abs 1.4(H) 0.3 - 0.9 x10(3)/[facility] Eosinophils % 0.0 % [facility] Eosinophils Abs 0.0 0.0 - 0.4 x10(3)/[facility] Basophils % 0.1 % [facility] Basophils Abs 0.0 0.0 - 0.1 x10(3)/[facility] Immature Gran % 1.90 % [facility] Comment: Immature granulocytes(IG's)percentage and absolute count will include metamyelocytes, myelocytes, and promyelocytes. Blood smears from CBCs yielding IG's will be scanned manually for concordance. If this scan disagrees with the automated IG or if promyelocytes are noted, a manual differential will be performed. Amanda Gran Abs 0.14(H) 0.00 - 0.04 x10(3)/[facility] Blood specimen (specimen) 09/22/2016 4:00 AM EST 09/22/2016 4:34 AM EST Narrative Resulting Agency Comment Spec In Lab Alirio Esparza MD HEMATOLOGY ORDERABL ES Performing Organization Address [facility]/ZIP Co de Phone Number [facility] [place] [address] * (ABNORMAL) Hemogram (09/22/2016 4:00 AM EST) [facility] WBC 7.5 4.0 - 9.5 x10(3)/[facility] LABORATORY RBC 2.93(L) 4.00 - 5.21 x10(6)/[facility] Hemoglobin 9.2(L) 11.7 - 15.5 gm/dL [facility] Hematocrit 28.0(L) 35.7 - 45.8 % [facility] MCV 95.6(H) 82.6 - 94.4 [facility] MCH 31.4 27.1 - 32.0 pg [facility] MCHC 32.9 31.7 - 35.0 gm/dL [facility] Platelets 161 145 - 357 x10(3)/[facility] RDWSD 44.0 37.0 - 46.0 [facility] RDWCV 12.6 11.5 - 14.1 % [facility] MPV 9.3 7.6 - 12.9 [facility]ORY nRBC % Auto 0.3 % [facility] nRBC Abs Auto 0.020(H) 0.000 - 0.000 x10(3)/[facility]ORY Blood specimen (specimen) 09/22/2016 4:00 AM EST 09/22/2016 4:34 AM EST Narrative Resulting Agency Comment Spec In Lab Alirio Esparza MD HEMATOLOGY ORDERABL ES Performing Organization Address [facility]/ZIP Co de Phone Number [facility] [place] [address] * (ABNORMAL) Cardiac Enzymes (09/22/2016 4:00 AM EST) [facility] Troponin-T 0.13(H) <=0.03 ng/mL [facility] Comment: 0.03 ng/mL: Represents the 99th percentile upper reference limit for normals. >0.03 ng/mL: Elevated cardiac troponin T level indicative of myocardial damage. Diagnosis of acute, evolving or recent OH requires a typical rise and gradual fall [...] consensus document of the Joint Society of Cardiology/[place] [employer] Committee for the redefinition of myocardial infarction. ??Journal of the [place] College [employer] 2000; 36: 959-969] CK, Total 338(H) 0 - 160 unit/L [facility] Blood specimen (specimen) 09/22/2016 4:00 AM EST 09/22/2016 4:34 AM EST Narrative Resulting Agency Comment Spec In Lab Alirio Esparza MD CHEMISTRY ORDERABLE S Performing Organization Address City/State/[facility] Co de Phone Number [facility] [place] [address] * (ABNORMAL) Glucose, fasting (09/22/2016 4:00 AM EST) Glucose Fasting 137(H) 65 - 99 mg/dL [facility] Comment: ?Fasting* Glucose Interpretive [...] of Diabetes Mellitus, Position Statement from the [place] [employer]. ??Diabetes Care, Volume 33, Supplement 1, Aug 2009 Blood specimen (specimen) 09/22/2016 4:00 AM EST 09/22/2016 4:34 AM EST Narrative Resulting Agency Comment Spec In Lab Alirio Esparza MD CHEMISTRY ORDERABLE S Performing Organization Address [facility] Co de Phone Number [facility] [place] [address] * (ABNORMAL) Creatinine (09/22/2016 4:00 AM EST) Creatinine 0.69(L) 0.70 - 1.20 mg/dL [facility] Comment: Please note that the pediatric reference intervals supplied above were not validated at [facility]. Results from pediatric patients should be interpreted in conjunction to the patient's age, height and muscle mass. Estimated GFR >60 >=60 [facility] Comment: This estimated GFR [...] the following links into your internet browser. [email or web address] Blood specimen (specimen) 09/22/2016 4:00 AM EST 09/22/2016 4:34 AM EST Narrative Resulting Agency Comment Spec In Lab Alirio Esparza MD CHEMISTRY ORDERABLE S Performing Organization Address [facility] Co de Phone Number [facility] [place] [address] * BUN (09/22/2016 4:00 AM EST) BUN 10 8 - 18 mg/dL [facility] Blood specimen (specimen) 09/22/2016 4:00 AM EST 09/22/2016 4:34 AM EST Narrative Resulting Agency Comment Spec In Lab Alirio Esparza MD CHEMISTRY ORDERABLE S Performing Organization Address [facility] Co de Phone Number [facility] [place] [address] * POCT Glucose (09/21/2016 9:59 PM EST) POC Glucose 146 65 - 199 mg/dL [facility] Comment: Supplemental ranges: <140 mg/dL before meals <180 mg/dL all other times of the day Blood specimen (specimen) 09/21/2016 9:59 PM EST 09/21/2016 9:59 PM EST Alirio Esparza MD POINT OF CARE TEST ORDERABLES Performing Organization Address [facility] Co de Phone Number [facility] [place] [address] * POCT Glucose (09/21/2016 7:26 PM EST) POC Glucose 152 65 - 199 mg/dL [facility] Comment: Supplemental ranges: <140 mg/dL before meals <180 mg/dL all other times of the day Blood specimen (specimen) 09/21/2016 7:26 PM EST 09/21/2016 7:26 PM EST Alirio Esparza MD POINT OF CARE TEST ORDERABLES Performing Organization Address [facility] Co de Phone Number [facility] [place] [address] * POCT Glucose (09/21/2016 6:00 PM EST) POC Glucose 146 65 - 199 mg/dL [facility] Comment: Supplemental ranges: <140 mg/dL before meals <180 mg/dL all other times of the day Blood specimen (specimen) 09/21/2016 6:00 PM EST 09/21/2016 6:00 PM EST Alirio Esparza MD POINT OF CARE TEST ORDERABLES [facility] [place] [address] * (ABNORMAL) BLOOD GAS 2 ARTERIAL (09/21/2016 4:42 PM EST) pH Art 7.35(L) 7.35 - 7.45 [facility] pCO2 Art 48(H) 35 - 45 mmHg [facility] pO2 Art 108(H) 85 - 104 mmHg [facility] HCO3 Art 26.0 20.0 - 26.0 mmol/L [facility] BE Art 0.5 -3.0 - 3.0 mmol/L [facility] Hgb Blood Gas 10.4(L) 11.7 - 15.5 gm/dL [facility] O2HB Art 96.2 94.0 - 97.0 % [facility] COHB Art 0.0 % [facility] Comment: Nonsmokers: 0.5-1.5% COHB Smokers: Variable, but usually less than 10% Toxic: 20-30% COHB Lethal: Greater than 60% COHB METHB Art 0.7 <=1.5 % [facility] Na Whole Blood 139 135 - 145 mmol/L [facility] [...] Whole Blood 106 98 - 107 mmol/L [facility] Gluc Whole Bld 147 65 - 199 mg/dL [facility] Comment:Diabetes: >=200 mg/d L plus symptoms. Lactate WB 1.2 0.5 - 2.2 mmol/L [facility] FIO2 Art 40 % [facility] PF Ratio Art 270 [facility] Blood specimen (specimen) 09/21/2016 4:42 PM EST 09/21/2016 4:42 PM EST Alirio Esparza MD CHEMISTRY ORDERABLE S Performing Organization Address [facility]/ZIP Co de Phone Number [facility] [place] [address] * POCT Glucose (09/21/2016 4:07 PM EST) POC Glucose 150 65 - 199 mg/dL [facility] Comment: Supplemental ranges: <140 mg/dL before meals <180 mg/dL all other times of the day Blood specimen (specimen) 09/21/2016 4:07 PM EST 09/21/2016 4:07 PM EST Alirio Esparza MD POINT OF CARE TEST ORDERABLES Performing Organization Address [facility] Co de Phone Number [facility] [place] [address] * (ABNORMAL) Hemoglobin (09/21/2016 4:05 PM EST) Hemoglobin 9.9(L) 11.7 - 15.5 gm/dL [facility] Blood specimen (specimen) 09/21/2016 4:05 PM EST 09/21/2016 4:20 PM EST Narrative Resulting Agency Comment Spec In Lab Alirio Esparza MD HEMATOLOGY ORDERABL ES Performing Organization Address [facility] Co de Phone Number [facility] [place] [address] * Potassium (09/21/2016 4:05 PM EST) Potassium 4.6 3.5 - 5.0 mmol/L WH[facility] [...] MD CHEMISTRY ORDERABLE S Performing Organization Address [facility]/ZIP Co de Phone Number [facility] [place] [address] * POCT Glucose (09/21/2016 2:52 PM EST) POC Glucose 117 65 - 199 mg/dL [facility] Comment: Supplemental ranges: <140 mg/dL before meals <180 mg/dL all other times of the day Blood specimen (specimen) 09/21/2016 2:52 PM EST 09/21/2016 2:52 PM EST Alirio Esparza MD POINT OF CARE TEST ORDERABLES Performing Organization Address [facility] Co de Phone Number [facility] [place] [address] * POCT Glucose (09/21/2016 1:51 PM EST) POC Glucose 108 65 - 199 mg/dL [facility] Comment: Supplemental ranges: <140 mg/dL before meals <180 mg/dL all other times of the day Blood specimen (specimen) 09/21/2016 1:51 PM EST 09/21/2016 1:51 PM EST Alirio Esparza MD POINT OF CARE TEST ORDERABLES Performing Organization Address [facility] Co de Phone Number [facility] [place] [address] * POCT Glucose (09/21/2016 12:54 PM EST) POC Glucose 128 65 - 199 mg/dL [facility] Comment: Supplemental ranges: <140 mg/dL before meals <180 mg/dL all other times of the day Blood specimen (specimen) 09/21/2016 12:54 PM EST 09/21/2016 12:54 PM EST Narrative Authorizing Provider Result Slade Esparza MD POINT OF CARE TEST ORDERABLES Performing Organization Address [facility] Co de Phone Number [facility] [place] [address] * EKG 12 Lead (09/21/2016 12:26 PM EST) Pathologist [facility] Ventricular rate 87 BPM MUSE SYSTEM Atrial Rate 87 BPM MUSE SYSTEM P-R Interval 256 ms MUSE SYSTEM QRS Duration 90 ms MUSE SYSTEM Q-T Interval 406 ms MUSE SYSTEM QTC Calculated (Bezet) 488 ms MUSE SYSTEM Calculated P [place] 24 degrees MUSE SYSTEM Calculated R [place] 21 degrees MUSE SYSTEM Calculated T [place] -5 degrees MUSE SYSTEM INTERPRETATION Sinus rhythm with 1st degree A-V block Nonspecific T wave abnormality Prolonged QT Abnormal ECG When compared with ECG of 19-MAY-2016 11:43, LA interval has increased T wave inversion now evident in inferior and midanterior leads Confirmed by MD FRANKLYN, MARLEN ([id number]) on 09/21/2016 1:40:59 PM MUSE SYSTEM 09/21/2016 12:2 6 PM EST 09/21/2016 1:40 PM EST Alirio Esparza MD ECG ORDERABLES Performing Organization Address [facility] Co de Phone Number MUSE [...] course of the esophagus and below the [id number]. There is a right IJ PA catheter [...] the course of theesophagus and below the [id number]. There is a right IJ PA catheter [...] EST) pH Art 7.41 7.35 - 7.45 [facility] pCO2 Art 42 35 - 45 mmHg [facility] pO2 Art 356(H) 85 - 104 mmHg [facility] HCO3 Art 26.2(H) 20.0 - 26.0 mmol/L [facility] BE Art 1.6 -3.0 - 3.0 mmol/L [facility] Hgb Blood Gas 10.7(L) 11.7 - 15.5 gm/dL [facility] O2HB Art 98.1(H) 94.0 - 97.0 % [facility] COHB Art 0.3 % [facility] Comment: Nonsmokers: 0.5-1.5% COHB Smokers: Variable, but usually less than 10% Toxic: 20-30% COHB Lethal: Greater than 60% COHB METHB Art 0.8 <=1.5 % [facility] Na Whole Blood 140 135 - 145 mmol/L [facility] K Whole Blood 3.8 3.5 - 5.0 mmol/L [facility] Comment: Please note: Patients with WBC >100,000 may have falsely elevated Potassium levels. Contact the Clinical Chemistry Laboratory if there are any questions. ICa Whole Blood 1.15(L) 1.15 - 1.33 mmol/L [facility] Comment: Note: ??Total bilirubin higher than 20 mg/dL may lead to falsely low ionized calcium. CL Whole Blood 106 98 - 107 mmol/L [facility] Gluc Whole Bld 135 65 - 199 mg/dL [facility] Comment:Diabetes: >=200 mg/d L plus symptoms. Lactate WB 2.2 0.5 - 2.2 mmol/L [facility] FIO2 Art 100 % [facility] PF Ratio Art 356 [facility] Blood specimen (specimen) 09/21/2016 12:20 PM EST 09/21/2016 12:20 PM EST Alirio Esparza MD CHEMISTRY ORDERABLE S Performing Organization Address City/State/[facility] Co de Phone Number [facility] [place] [address] * (ABNORMAL) BLOOD GAS 2 ARTERIAL (09/21/2016 10:54 AM EST) pH Art 7.43 7.35 - 7.45 [facility] pCO2 Art 40 35 - 45 mmHg [facility] pO2 Art 297(H) 85 - 104 mmHg [facility] HCO3 Art 26.0 20.0 - 26.0 mmol/L [facility] BE Art 1.6 -3.0 - 3.0 mmol/L [facility] Hgb Blood Gas 8.6(L) 11.7 - 15.5 gm/dL [facility] O2HB Art 98.6(H) 94.0 - 97.0 % [facility] COHB Art 0.5 % [facility] Comment: Nonsmokers: 0.5-1.5% COHB Smokers: Variable, but usually less than 10% Toxic: 20-30% COHB Lethal: Greater than 60% COHB METHB Art 0.3 <=1.5 % [facility] Na Whole Blood 134(L) 135 - 145 mmol/L [facility] K Whole Blood 4.5 3.5 - 5.0 mmol/L [facility] Comment: Please note: Patients with WBC >100,000 may have falsely elevated Potassium levels. Contact the Clinical Chemistry Laboratory if there are any questions. ICa Whole Blood 1.16 1.15 - 1.33 mmol/L [facility] Comment: Note: ??Total bilirubin higher than 20 mg/dL may lead to falsely low ionized calcium. CL Whole Blood 104 98 - 107 mmol/L [facility] Gluc Whole Bld 240(H) 65 - 199 mg/dL [facility] Comment:Diabetes: >=200 mg/d L plus symptoms. Lactate WB 2.4(H) 0.5 - 2.2 mmol/L [facility] FIO2 Art 95 % [facility] Flow Art 0.7 LPM [facility] PF Ratio Art 313 [facility] Temp Art 36.7 Celsius [facility] Blood specimen (specimen) 09/21/2016 10:54 AM EST 09/21/2016 10:54 AM EST Alirio Esparza MD CHEMISTRY ORDERABLE S [facility] [place] [address] * Thrombin time (09/21/2016 10:50 AM EST) Thrombin Time 19 15 - 20 sec [facility] Comment: A prolongation in [...] MD HEMATOLOGY ORDERABLE S Performing Organization Address [facility] Co de Phone Number [facility] [place] [address] * Fibrinogen (09/21/2016 10:50 AM EST) Fibrinogen 228 180 - 510 mg/dL [facility] Comment: Called by: JONNATHAN, Read back by: MICHELLE ALEJANDRE_, Date/Time:09/21/16 11:11. A fibrinogen level >100 mg/dL is adequate for hemostasis in most patients without underlying bleeding disorders. Blood specimen (specimen) 09/21/2016 10:50 AM EST 09/21/2016 10:56 AM EST Narrative Resulting Agency Comment Spec In Lab Luis Enrique Quarles MD HEMATOLOGY ORDERABLE S Performing Organization Address [facility] de Phone Number [facility] [place] [address] * APTT (09/21/2016 10:50 AM EST) PTT 32 25 - 35 sec [facility] Comment: The recommended therapeutic range for full dose, unfractionated heparin at [facility] is 80 ? 114 seconds. The use of the anti-Xa (heparin) level rather than the PTT is recommended for monitoring anticoagulation intensity in critically ill patients receiving unfractionated heparin by continuous IV infusion. Blood specimen (specimen) 09/21/2016 10:50 AM EST 09/21/2016 10:56 AM EST Narrative Resulting Agency Comment Spec In Lab Luis Enrique Quarles MD HEMATOLOGY ORDERABLE S Performing Organization Address City/[facility] Co de Phone Number [facility] [place] [address] * (ABNORMAL) Prothrombin Time (09/21/2016 10:50 AM EST) PT 18.7(H) 12.0 - 15.0 sec [facility] Comment: An INR <2.0 [...] clinical circumstances. INR 1.5(H) 0.9 - 1.1 [facility] Blood specimen (specimen) 09/21/2016 10:50 AM EST 09/21/2016 10:56 AM EST Narrative Resulting Agency Comment Spec In Lab Luis Enrique Quarles MD HEMATOLOGY ORDERABLE S [facility] [place] [address] * (ABNORMAL) Hemogram (09/21/2016 10:50 AM EST) WBC 14.7(H) 4.0 - 9.5 x10(3)/[facility] RBC 2.40(L) 4.00 - 5.21 x10(6)/[facility] Hemoglobin 7.9(L) 11.7 - 15.5 gm/dL [facility] Hematocrit 23.2(L) 35.7 - 45.8 % [facility] Comment: This result has been called to MICHELLE GRIGSBY by ASHU MORENO on 09 21 2016 at 1102, and has been read back. MCV 96.7(H) 82.6 - 94.4 fL [facility] MCH 32.9(H) 27.1 - 32.0 pg [facility] MCHC 34.1 31.7 - 35.0 gm/dL [facility] Platelets 117(L) 145 - 357 x10(3)/[facility] RDWSD 42.6 37.0 - 46.0 [facility] RDWCV 12.1 11.5 - 14.1 % [facility] MPV 9.2 7.6 - 12.9 [facility] nRBC % Auto 0.1 % [facility] [place] [place] nRBC Abs Auto 0.020(H) 0.000 - 0.000 x10(3)/[facility] Blood specimen (specimen) 09/21/2016 10:50 AM EST 09/21/2016 10:56 AM EST Narrative Resulting Agency Comment Spec In Lab Luis Enrique Quarles MD HEMATOLOGY ORDERABLE S Performing Organization Address [facility] Co de Phone Number [facility] [place] [address] * Prepare Platelets, Apheresis (09/21/2016 10:30 AM EST) Dispensed? Yes [facility] Blood specimen (specimen) 09/21/2016 10:30 AM EST 09/21/2016 10:28 AM EST Alirio Esparza MD BLOOD BANK PRODUCT ORDERABLES Performing Organization Address [facility] Phone Number [facility] [place] [address] * (ABNORMAL) BLOOD GAS 2 ARTERIAL (09/21/2016 10:05 AM EST) pH Art 7.33(L) 7.35 - 7.45 [facility] pCO2 Art 54(Critic al) 35 - 45 mmHg [facility] Comment:Noted by brasswind instrument repairer. pO2 Art 218(H) 85 - 104 mmHg [facility] HCO3 Art 27.9(H) 20.0 - 26.0 mmol/L [facility] BE Art 2.0 -3.0 - 3.0 mmol/L [facility] Hgb Blood Gas 8.6(L) 11.7 - 15.5 gm/dL [facility] O2HB Art 98.4(H) 94.0 - 97.0 % [facility] COHB Art 0.5 % [facility] Comment: Nonsmokers: 0.5-1.5% COHB Smokers: Variable, but usually less than 10% Toxic: 20-30% COHB Lethal: Greater than 60% COHB METHB Art 0.3 <=1.5 % [facility] Na Whole Blood 129(L) 135 - 145 mmol/L [facility] K Whole Blood 6.2(Criti gabrielle) 3.5 - 5.0 mmol/L [facility] Comment: Noted by brasswind instrument repairer. Please note: Patients with WBC >100,000 may have falsely elevated Potassium levels. Contact the Clinical Chemistry Laboratory if there are any questions. ICa Whole Blood 0.95(L) 1.15 - 1.33 mmol/L [facility] [facility] Comment: Note: ??Total bilirubin higher than 20 mg/dL may lead to falsely low ionized calcium. CL Whole Blood 100 98 - 107 mmol/L [facility] Gluc Whole Bld 289(H) 65 - 199 mg/dL [facility] Comment:Diabetes: >=200 mg/d L plus symptoms. Lactate WB 2.2 0.5 - 2.2 mmol/L [facility] Temp Art 37.0 Celsius [facility] Blood specimen (specimen) 09/21/2016 10:05 AM EST 09/21/2016 10:05 AM EST Alirio Esparza MD CHEMISTRY ORDERABLE S [facility] [place] [address] * (ABNORMAL) BLOOD GAS 2 ARTERIAL (09/21/2016 9:44 AM EST) pH Art 7.22(Criti gabrielle) 7.35 - 7.45 [facility] Comment:Noted by brasswind instrument repairer. pCO2 Art 70(Critica l) 35 - 45 mmHg [facility] Comment:Noted by brasswind instrument repairer. pO2 Art 224(H) 85 - 104 mmHg [facility] HCO3 Art 27.8(H) 20.0 - 26.0 mmol/L [facility] BE Art 0.0 -3.0 - 3.0 mmol/L [facility] Hgb Blood Gas 8.7(L) 11.7 - 15.5 gm/dL [facility] O2HB Art 98.5(H) 94.0 - 97.0 % [facility] COHB Art 0.6 % [facility] Comment: Nonsmokers: 0.5-1.5% COHB Smokers: Variable, but usually less than 10% Toxic: 20-30% COHB Lethal: Greater than 60% COHB METHB Art 0.3 <=1.5 % [facility] Na Whole Blood 131(L) 135 - 145 mmol/L [facility] K Whole Blood 5.9(H) 3.5 - 5.0 mmol/L [facility] Comment: Please note: Patients with WBC >100,000 may have falsely elevated Potassium levels. Contact the Clinical Chemistry Laboratory if there are any questions. ICa Whole Blood 1.00(L) 1.15 - 1.33 mmol/L [facility] Comment: Note: ??Total bilirubin higher than 20 mg/dL may lead to falsely low ionized calcium. CL Whole Blood 101 98 - 107 mmol/L [facility] Gluc Whole Bld 227(H) 65 - 199 mg/dL [facility] Comment:Diabetes: >=200 mg/d L plus symptoms. Lactate WB 2.1 0.5 - 2.2 mmol/L [facility] Blood specimen (specimen) 09/21/2016 9:44 AM EST 09/21/2016 9:44 AM EST Alirio Esparza MD CHEMISTRY ORDERABLE S [facility] [place] [address] * (ABNORMAL) Hemoglobin (09/21/2016 9:42 AM EST) Hemoglobin 7.2(L) 11.7 - 15.5 gm/dL [facility] Blood specimen (specimen) 09/21/2016 9:42 AM EST 09/21/2016 9:51 AM EST Narrative Resulting Agency Comment Spec In Lab Alirio Esparza MD HEMATOLOGY ORDERABL ES [facility] [place] [address] * Platelet count (09/21/2016 9:42 AM EST) Platelets 159 145 - 357 x10(3)/mc L [facility] Plat Immature % 1.6 0.0 - 7.4 % [facility] Comment: Limitation of the Immature Platelet Fraction (IPF)-May be less reliable when the platelet count is less than 40c302/uL due to statistical imprecision. The IPF value [...] in a decreased state of production. References: [employer] The Clinical Value of the Immature Platelet Fraction (IPF) in Cell Recovery Document Number 10-1143 12/2010 [employer] The Role of the Immature Platelet Fraction (IPF) in the Differential Diagnosis of Thrombocytopenia, Document MKT-10-1209 V05/12/14 P05/14 Blood specimen (specimen) 09/21/2016 9:42 AM EST 09/21/2016 9:51 AM EST Narrative Resulting Agency Comment Spec In Lab Alirio Esparza MD HEMATOLOGY ORDERABL ES Performing Organization Address [facility] Co de Phone Number [facility] [place] [address] * (ABNORMAL) Hematocrit (09/21/2016 9:42 AM EST) Hematocrit 21.6(L) 35.7 - 45.8 % [facility] Comment: This result has been called to MICHELLE ALEJANDRE by Serjio Frazier on 09 21 2016 at 0957, and has been read back. Blood specimen (specimen) 09/21/2016 9:42 AM EST 09/21/2016 9:51 AM EST Narrative Resulting Agency Comment Spec In Lab Alirio Esparza MD HEMATOLOGY ORDERABL ES Performing Organization Address [facility] de Phone Number [facility] [place] [address] * Fibrinogen (09/21/2016 9:42 AM EST) Fibrinogen 219 180 - 510 mg/dL [facility] Comment: Called by: JONNATHAN, Read back by: MICHELLE ALEJANDRE_, Date/Time:09/21/16 10:03_. A fibrinogen level >100 mg/dL is adequate for hemostasis in most patients without underlying bleeding disorders. Blood specimen (specimen) 09/21/2016 9:42 AM EST 09/21/2016 9:51 AM EST Narrative Resulting Agency Comment Spec In Lab Alirio Esparza MD HEMATOLOGY ORDERABL ES Performing Organization Address [facility] Co de Phone Number [facility] [place] [address] * (ABNORMAL) BLOOD GAS 2 ARTERIAL (09/21/2016 9:10 AM EST) pH Art 7.36 7.35 - 7.45 [facility] pCO2 Art 48(H) 35 - 45 mmHg [facility] pO2 Art 295(H) 85 - 104 mmHg [facility] HCO3 Art 26.0 20.0 - 26.0 mmol/L [facility] BE Art 0.5 -3.0 - 3.0 mmol/L [facility] Hgb Blood Gas 8.0(L) 11.7 - 15.5 gm/dL [facility] O2HB Art 98.3(H) 94.0 - 97.0 % [facility] COHB Art 1.0 % [facility] Comment: Nonsmokers: 0.5-1.5% COHB Smokers: Variable, but usually less than 10% Toxic: 20-30% COHB Lethal: Greater than 60% COHB METHB Art 0.3 <=1.5 % [facility] Na Whole Blood 135 135 - 145 mmol/L [facility] K Whole Blood 5.4(H) 3.5 - 5.0 mmol/L [facility] Comment: Please note: Patients with WBC >100,000 may have falsely elevated Potassium levels. Contact the Clinical Chemistry Laboratory if there are any questions. ICa Whole Blood 0.93(L) 1.15 - 1.33 mmol/L [facility] Comment: Note: ??Total bilirubin higher than 20 mg/dL may lead to falsely low ionized calcium. CL Whole Blood 102 98 - 107 mmol/L [facility] Gluc Whole Bld 195 65 - 199 mg/dL [facility] Comment:Diabetes: >=200 mg/d L plus symptoms. Lactate WB 1.8 0.5 - 2.2 mmol/L [facility] Temp Art 37.0 Celsius [facility] Blood specimen (specimen) 09/21/2016 9:10 AM EST 09/21/2016 9:10 AM EST Alirio Esparza MD CHEMISTRY ORDERABLE S [facility] [place] [address] * Surgical Pathology Report (09/21/2016 9:09 AM EST) Surgical Pathology Report [id number] ?Location: 3T The signing pathologist has (i) [...] submitted for decalcification: ??(1) ?. (R1) ??ADELITA [facility] 09/21/2016 9:09 AM EST lAirio Esparza MD PATHOLOGY/CYTOLOGY ORDERABLES [facility] [place] [address] * Specimen to Pathology (surgical or derm) (09/21/2016 9:09 AM EST) AP Specimen 09/21/2016 9:09 AM EST 09/21/2016 9:09 AM EST Narrative [facility] - 09/21/2016 9:09 AM EST Specimen requisition ordered. ??Separate Pathology report to follow Alirio Esparza MD PATHOLOGY/CYTOLOGY ORDERABLES [facility] [place] [address] * (ABNORMAL) BLOOD GAS 2 ARTERIAL (09/21/2016 8:50 AM EST) pH Art 7.41 7.35 - 7.45 [facility] pCO2 Art 33(L) 35 - 45 mmHg [facility] pO2 Art 348(H) 85 - 104 mmHg [facility] HCO3 Art 20.6 20.0 - 26.0 mmol/L [facility] BE Art -4.1(L) -3.0 - 3.0 mmol/L [facility] Hgb Blood Gas 9.5(L) 11.7 - 15.5 gm/dL [facility] O2HB Art 98.8(H) 94.0 - 97.0 % [facility] COHB Art 0.3 % [facility] Comment: Nonsmokers: 0.5-1.5% COHB Smokers: Variable, but usually less than 10% Toxic: 20-30% COHB Lethal: Greater than 60% COHB METHB Art 0.3 <=1.5 % [facility] Na Whole Blood 137 135 - 145 mmol/L [facility] K Whole Blood 4.0 3.5 - 5.0 mmol/L [facility] [...] Whole Blood 105 98 - 107 mmol/L [facility] Gluc Whole Bld 93 65 - 199 mg/dL [facility] Comment:Diabetes: >=200 mg/d L plus symptoms. Lactate WB 1.0 0.5 - 2.2 mmol/L [facility] Blood specimen (specimen) 09/21/2016 8:50 AM EST 09/21/2016 8:50 AM EST Alirio Esparza MD CHEMISTRY ORDERABLE S [facility] [place] [address] * (ABNORMAL) BLOOD GAS 2 ARTERIAL (09/21/2016 8:18 AM EST) pH Art 7.42 7.35 - 7.45 [facility] pCO2 Art 36 35 - 45 mmHg [facility] pO2 Art 283(H) 85 - 104 mmHg [facility] HCO3 Art 22.8 20.0 - 26.0 mmol/L [facility] BE Art -2.0 -3.0 - 3.0 mmol/L [facility] Hgb Blood Gas 12.6 11.7 - 15.5 gm/dL [facility] O2HB Art 99.0(H) 94.0 - 97.0 % [facility] COHB Art 0.6 % [facility] Comment: Nonsmokers: 0.5-1.5% COHB Smokers: Variable, but usually less than 10% Toxic: 20-30% COHB Lethal: Greater than 60% COHB METHB Art 0.0 <=1.5 % [facility] Na Whole Blood 144 135 - 145 mmol/L [facility] K Whole Blood 4.0 3.5 - 5.0 mmol/L [facility] Comment: Please note: Patients with WBC >100,000 may have falsely elevated Potassium levels. Contact the Clinical Chemistry Laboratory if there are any questions. ICa Whole Blood 1.22 1.15 - 1.33 mmol/L [facility] Comment: Note: ??Total bilirubin higher than 20 mg/dL may lead to falsely low ionized calcium. CL Whole Blood 106 98 - 107 mmol/L [facility] Gluc Whole Bld 102 65 - 199 mg/dL [facility] Comment:Diabetes: >=200 mg/d L plus symptoms. Lactate WB 1.2 0.5 - 2.2 mmol/L [facility] FIO2 Art 95 % [facility] Flow Art 1.1 LPM [facility] PF Ratio Art 298 [facility] Temp Art 35.6 Celsius [facility] Blood specimen (specimen) 09/21/2016 8:18 AM EST 09/21/2016 8:18 AM EST Narrative Authorizing Provider Result Slade Esparza MD CHEMISTRY ORDERABLE S [facility] [place] [address] * Prepare RBC (09/21/2016 7:05 AM EST) Dispensed? Yes [facility] Blood specimen (specimen) 09/21/2016 7:05 AM EST 09/21/2016 7:02 AM EST Alirio Esparza MD BLOOD BANK PRODUCT ORDERABLES Performing Organization Address City/[facility]/ZIP Co de Phone Number [facility] [place] [address] * POCT Glucose (09/21/2016 6:42 AM EST) POC Glucose 104 65 - 199 mg/dL [facility] Comment: Supplemental ranges: <140 mg/dL before meals <180 mg/dL all other times of the day Blood specimen (specimen) 09/21/2016 6:42 AM EST 09/21/2016 6:42 AM EST Narrative Authorizing Provider Result Slade Esparza MD POINT OF CARE TEST ORDERABLES Performing Organization Address City/[facility]/ZIP Co de Phone Number [facility] [place] [address] documented in this encounter Visit Diagnoses Diagnosis [...] dose on Wed09/21/16 at 1230, Until Discontinued, Belk teeth, Routine Given 09/25/2016 9:40 AM EST [...] if phenyleprine and/or vasopressin ineffective.Call pager # [phone] if initiated., Routine Rate/Dose Change 09/21/2016 2:27 [...] 2.0 L/min/M2. Maximum volume 2 L. Call clay house worker for additional fluid orders: pager #[phone]. Rate/Dose Verify 09/22/2016 10:00 AM EST 10 mL/hr 10 mL/hr Rate/Dose Change 09/22/2016 8:12 AM EST 10 mL/hr 10 mL/h r Rate/Dose Verify 09/21/2016 2:00 PM EST 100 mL/hr 100 mL/ hr sodium chloride 0.9% infusion 10-30 mL/hr, Intravenous, DAILY PRN, Starting on Wed09/21/16 at 1206, Until Wed09/22/16 at 1036, Side port TKO rate, per [facility] nursing protocol. Rate/Dose Verify 09/21/2016 5:00 [...] at 0600)1600 (Due - Provider: Kendall Martínez [facility]) aspirin chewable tablet 81 mg(Linked Group 1) [...] dose on Wed09/21/16 at 1230, Until Discontinued, Belk teeth, Routine 0900 (Not Given - Provider: [...] Routine documented in this encounter Care Teams Paint Specialist Relationship Specialty Start Date End Date Deborah Quiroga, INSTRUCTIONAL TECHNOLOGY TEACHER PCP - General Family Medicine 03/24/16 02/04/23 documented as of this encounter
--- OUTSIDE RECORDS SUMMARY | 2024-02-17 14:27 | XMS_ITS | Encounter Summary ---
Author Organization [facility] Address [facility] [place] [address] Care Team Providers Care Burial Agent Name Role Phone Ashley Quirogazac Shields APRN Primary Care Provider [phone] Encounter Details Date Type Department Care Team (Late st Contact Info) Description 10/20/2016 11:20 AM EDT Office [place] [phone] Alirio Esparza MD [facility] DR [place] [address] S/P AVR Social History Tobacco Use Types [...] all of her postoperative tests done at [facility]. Her echo shows a well-seated valve. Her EF, for some reason, was read as in the 45% to 50% range. She had a normal EF to start. I think that will need to be repeated at [facility]. She has no perivalve leak. Her mean [...] should continue to see Dr. Burrell, her community relations rep at [facility]. cc: Dr. Burrell documented in this encounter Plan of Treatment Upcoming Encounters Date Type Department Care Team (Late st Contact Info) Description 02/22/2024 4:15 PM EDT Office Visit Dermatology at [address] [place] [address] Marek Bonilla MD [address] [facility] [place] [address] 06/05/2024 11:30 AM EST Office [place] [address] Magdalena Peralta MD [facility] [place] [address] documented as of this encounter Visit Diagnoses Diagnosis S/P AVR Heart valve replaced by other means documented in this encounter Care Teams Burial Agent Relationship Specialty Start Date End Date Deborah Quiroga APRN PCP - General Family Medicine 03/24/16 02/04/23 documented as of this encounter
--- OUTSIDE RECORDS SUMMARY | 2024-02-17 14:27 | XMS_ITS | Encounter Summary ---
Author Organization [facility] Address [facility] [place] [address] Care Team Providers Care Biodiesel Production Associate Name Role Phone Junaid Deborah Shields APRN Primary Care Provider [phone] Encounter Details Date Type Department Care Team (Latest Contact Info) Description 10/14/2016 - 10/14/2016 11:59 PM EDT Hospital Encounter [place] [address] Alirio Esparza MD [facility] DR [place] [address] Pain Discharge Disposition: Home Social History Tobacco [...] 4:15 PM EDT Office Visit Dermatology at [address] [place] [address] Marek Bonilla MD [address] [facility] [place] [address] 06/05/2024 11:30 AM EST Office [place] [address] Magdalena Peralta MD [facility] [place] [address] documented as of this encounter Procedures Procedure Name Priority Date/Time Associated Diagnosis Comments FILM LIBRARY STORAGE ONLY DX CHEST Routine 10/14/2016 12:00 AM EDT Pain documented in this encounter Results * Film Library- Storage Only DX Chest (10/14/2016 12:00 AM EDT) Narrative [facility] - 10/14/2016 5:16 PM EDT This exam is for storage only and is auto-finalizing. Alirio Esparza MD IMG FILM LIBRARY OR DERABLES [place], [place] documented in this encounter Visit Diagnoses Diagnosis Pain Generalized pain documented in this encounter Care Teams Biodiesel Production Associate Relationship Specialty Start Date End Date Deborah Quiroga, HOME HEALTH SCHEDULER PCP - General Family Medicine 03/24/16 02/04/23 documented as of this encounter
--- OUTSIDE RECORDS SUMMARY | 2024-02-17 14:27 | XMS_ITS | Encounter Summary ---
Author Organization [facility] Address [facility] [place] [address] Care Team Providers Care Manager Research And Development Name Role Phone Deborah Quiroga APRN Primary Care Provider [phone] Encounter Details Date Type Department Care Team (Late st Contact Info) Description 06/18/2017 11:00 AM EST Office Visit Hematology and Oncology at [facility] [place] [phone] Markel Borjas MD [facility] [place] [address] Neutropenia, unspecified type Social History Tobacco Use [...] 06/18/2017 11:00 AM EST Hematology Outpatient Clinic [facility] Hematology Outpatient Consult Note CC: 60 [...] TOUCH PREP, CLOT SECTION, CORE ??BIOPSY); [OSR# [id number], COLLECTED 06/23/2016, 19 SLIDES]: ?1. ??Normocellular marrow [...] a clonal lymphoproliferative or myeloproliferative disorder (OSR# [id number]) Chromosome analysis on the marrow aspirate revealed [...] working the same job and participating in [employer] patients. Past Medical/Surgical History: 1. Leukopenia -element of neutropenia, as noted above 2. Aortic Stenosis -severe -AVR surgery 3. Hypercholesterolemia 4. Depression 5. Hypertension 6. Obesity Social History: TOB - neg ETOH - neg Works at [employer] in [employer] department Plays competitive scrabble, and goes to [employer] Family History: No known primary marrow disorders [...] intact. Extremities: No edema. Labs: Hgb= 13 Rikd=277 ANC= 0.6 Imaging As above - reviewed [...] will see her in 12 months. Markel Borjsa MD documented in this encounter Plan of Treatment Upcoming Encounters Date Type Department Care Team (Late st Contact Info) Description 02/22/2024 4:15 PM EDT Office Visit Dermatology at [place] [address] [place] [address] Marek Bonilla MD [address] [place] [address] 06/05/2024 11:30 AM EST Office [place] [address] Magdalena Peralta MD [facility] [place] [address] documented as of this encounter Visit Diagnoses Diagnosis Neutropenia, unspecified type documented in this encounter Care Teams Manager Research And Development Relationship Specialty Start Date End Date Deborah Quiroga APRN PCP - General Family Medicine 03/24/16 02/04/23 documented as of this encounter
--- OUTSIDE RECORDS SUMMARY | 2024-02-17 14:27 | XMS_ITS | Encounter Summary ---
Author Organization [facility] Address [facility] [place] [address] Care Team Providers Care Airport Representative Name Role Phone Deborah Quiroga APRN Primary Care Provider [phone] Encounter Details Date Type Department Care Team (Late st Contact Info) Description 03/01/2020 11:30 AM EDT Office Visit Hematology and Oncology at [facility] [place] [phone] Patrick Borjas MD [facility] [place] [address] Neutropenia, unspecified type Social History Tobacco Use [...] 03/01/2020 11:30 AM EDT Hematology Outpatient Clinic [facility] Hematology Outpatient Consult Note CC: 60 year [...] TOUCH PREP, CLOT SECTION, CORE ??BIOPSY); [OSR# [id number], COLLECTED 06/23/2016, 19 SLIDES]: ?1. ??Normocellular marrow [...] a clonal lymphoproliferative or myeloproliferative disorder (OSR# [id number]) Chromosome analysis on the marrow aspirate revealed [...] - neg ETOH - neg Works at [employer] in [employer] department Plays competitive scrabble, and goes to [employer] Family History: No known primary marrow disorders [...] intact. Extremities: No edema. Labs: Hgb= 12.4 Lisf=227 ANC= 2.5 Imaging As above - reviewed [...] 4:15 PM EDT Office Visit Dermatology at [address] [place] [address] Marek Bonilla MD [address] [facility] [place] [address] 06/05/2024 11:30 AM EST Office [place] [address] Magdalena Peralta MD [facility] [place] [address] documented as of this encounter Visit Diagnoses Diagnosis Neutropenia, unspecified type documented in this encounter Care Teams Airport Representative Relationship Specialty Start Date End Date Deborah Quiroga APRN PCP - General Family Medicine 03/24/16 02/04/23 documented as of this encounter
--- OUTSIDE RECORDS SUMMARY | 2024-02-17 14:27 | XMS_ITS | Encounter Summary ---
Author [facility] [place] [address] Care Team Providers Care Assembler Golf Wood Head Name Role Phone Deborah Quiroga ANURAG Primary Care Provider [phone] Encounter Details Date Type Department Care Team (Late st Contact Info) Description 07/21/2017 Orders Only H[place]ology [place] [phone] Alexandrea Greenwood RN Other neutropenia Social History [...] 4:15 PM EDT Office Visit Dermatology at [place] [address] [place] [address] Marek Bonilla MD [address] [place] [address] 06/05/2024 11:30 AM EST Office [place] [address] Magdalena Peralta MD [facility] [place] [address] documented as of this encounter Visit Diagnoses Diagnosis Other neutropenia documented in this encounter Care Teams Assembler Golf Wood Head Relationship Specialty Start Date End Date Deborah Quiroga, ANURAG PCP - General Family Medicine 03/24/16 02/04/23 documented as of this encounter
--- OUTSIDE RECORDS SUMMARY | 2024-02-17 14:27 | XMS_ITS | Encounter Summary ---
Author Organization [facility] Address [facility] [place] [address] Care Team Providers Care Papier Mache Molder Name Role Phone Junaid Deborah Shields APRN Primary Care Provider [phone] Reason for Visit * Reason Comments Schedule Office Case Pain right leg Encounter Details Date Type Department Care Team (Late st Contact Info) Description 12/11/2016 9:00 AM EDT Office Visit Hematology and Oncology at [facility] [place] [address] Markel Borjas MD [facility] [place] [address] Neutropenia, unspecified type Social History Tobacco Use [...] 12/11/2016 9:00 AM EDT Hematology Outpatient Clinic [facility] Hematology Outpatient Consult Note CC: [...] TOUCH PREP, CLOT SECTION, CORE ??BIOPSY); [OSR# [id number], COLLECTED 06/23/2016, 19 SLIDES]: ?1. 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 Extremities: No edema. Labs: Hgb= 13 Rhoy=441 ANC= 0.5 Imaging As above - reviewed [...] 4:15 PM EDT Office Visit Dermatology at [place] [address] [place] [address] Marek Bonilla MD [address] [facility] [place] [address] 06/05/2024 11:30 AM EST Office [place] [address] Magdalena Peralta MD [facility] [place] [address] documented as of this encounter Results * (ABNORMAL) CBC (with Diff) (06/11/2017 1:19 PM EST) Pathologist [facility] [place] WBC 2.28(EXTER NAL/ABN) 4.4 - 10.8 EXTERNAL [...] panel (non-fasting) (06/11/2017 1:19 PM EST) Pathologist [facility] [place] BUN 13 7 - 18 EXTERNAL LAB [...] type documented in this encounter Care Teams Papier Mache Molder Relationship Specialty Start Date End Date Deborah Quiroga, IMAGING TECHNOLOGIST PCP - General Family Medicine 03/24/16 02/04/23 documented as of this encounter
--- OUTSIDE RECORDS SUMMARY | 2024-02-17 14:27 | XMS_ITS | Encounter Summary ---
[place] [address] Care Team Providers Care Firebrick Layer Helper Name Role Phone Ashley Quirogan Cornelius ANURAG Primary Care Provider [phone] Reason for Visit * Reason Comments Acrochordon Rosacea Encounter Details Date Type Department Care Team (Late st Contact Info) Description 12/05/2020 3:00 PM EDT Office Visit Dermatology at [address] [phone] Marek Bonilla MD 580 [facility] DERMATOLOGY [place], [place] [phone] Inflamed acrochordon Social History Tobacco Use Types [...] 4:15 PM EDT Office Visit Dermatology at [place] [address] [place] [address] Marek Bonilla MD [address] [facility] [place] [address] 06/05/2024 11:30 AM EST Office [place] [address] Magdalena Peralta MD [facility] [address] [place] [address] documented as of this encounter Visit Diagnoses Diagnosis Inflamed acrochordon Unspecified hypertrophic and atrophic condition of skin documented in this encounter Care Teams Firebrick Layer Helper Relationship Specialty Start Date End Date Deborah Quiroga APRN PCP - General Family Medicine 03/24/16 02/04/23 documented as of this encounter
--- OUTSIDE RECORDS SUMMARY | 2024-02-17 14:27 | XMS_ITS | Encounter Summary ---
[place] [address] Care Team Providers Care Time Buyer Name Role Phone Deborah Quiroga Cornelius OSBORN Primary Care Provider [phone] Encounter Details Date Type Department Care Team (Late st Contact Info) Description 01/13/2021 Refill Dermatology at [address] [phone] Taylor Malone, FILTER PLANT OPERATOR Social History Tobacco Use Types Packs/Day Years [...] PM EDT Office Visit Dermatology at [address] [address] Marek Bonilla MD [address] [place] [address] [place] [address] 06/05/2024 11:30 AM EST Office [place] [address] Magdalena Peralta MD [facility] [address] [place] [address] documented as of this encounter Visit Diagnoses Not on filedocumented in this encounter Care Teams Time Buyer Relationship Specialty Start Date End Date Deborah Quiroga APRN PCP - General Family Medicine 03/24/16 02/04/23 documented as of this encounter
--- OUTSIDE RECORDS SUMMARY | 2024-02-17 14:28 | XMS_ITS | Encounter Summary ---
Author Organization [facility] [place] [address] Care Team Providers Care Director Operating Name Role Phone Deborah Quiroga APRN Primary Care Provider [phone] Encounter Details Date Type Department Care Team (Late st Contact Info) Description 07/31/2016 External Results Hematology [place] [address] Alexandrea Greenwood RN Neutropenia, unspecified [...] 4:15 PM EDT Office Visit Dermatology at [address] [place] [address] Marek Bonilla MD 580 [facility] [place] [address] 06/05/2024 11:30 AM EST Office [place] [address] Magdalena Peralta MD [facility] [place] [address] documented as of this encounter Procedures Procedure [...] type documented in this encounter Care Teams Director Operating Relationship Specialty Start Date End Date Deborah Quiroga, DIRECTOR OF RETAIL MERCHANDISING PCP - General Family Medicine 03/24/16 02/04/23 documented as of this encounter
--- OUTSIDE RECORDS SUMMARY | 2024-02-17 14:28 | XMS_ITS | Encounter Summary ---
[place] [address] Care Team Providers Care Baggagemaster Name Role Phone Ashley Quirogan Cornelius ANURAG Primary Care Provider [phone] Reason for Visit * Reason Onset Date Comments Medical Care Coordination 09/14/2016 Encounter Details Date Type Department Care Team (Late st Contact Info) Description 09/14/2016 Telephone Hematology [place] [address] Alexandrea Greenwood RN Medical Care Coordination Social [...] 09/14/2016 9:10 AM EST Message received from alumni secretary: Injection/Infusion Referral Call placed to [facility] Infusion Room Spoke charis Bragg. Services to be provided for pt are: Miles 09/16/16 [facility] confirmed they would provide services to pt and would contact with appointment time. Pt aware to expect the phone call ??orders faxed to [phone]). documented in this encounter Plan of Treatment Upcoming Encounters Date Type Department Care Team (Late st Contact Info) Description 02/22/2024 4:15 PM EDT Office Visit Dermatology at [place] [address] [place] [address] Marek Bonilla MD [address] [place] [address] 06/05/2024 11:30 AM EST Office [place] [address] Magdalena Peralta MD [facility] [place] [address] documented as of this encounter Visit Diagnoses Not on filedocumented in this encounter Care Teams Baggagemaster Relationship Specialty Start Date End Date Deborah Quiroga APRN PCP - General Family Medicine 03/24/16 02/04/23 documented as of this encounter
--- OUTSIDE RECORDS SUMMARY | 2024-02-17 14:28 | XMS_ITS | Encounter Summary ---
Author Organization [facility] [place] [address] Care Team Providers Care Wood Scrap Handler Name Role Phone Deborah Quiroga APRN Primary Care Provider [phone] Encounter Details Date Type Department Care Team (Late st Contact Info) Description 08/18/2016 Orders [place] [phone] Alirio Esparza MD [facility] DR [place] [address] Aortic valve stenosis, unspecified etiology Social History [...] PM EDT Office Visit Dermatology at [address] [place] [phone] Marek Bonilla MD [address] [facility] [place] [address] 06/05/2024 11:30 AM EST Office [place] [phone] Magdalena Peralta MD [facility] [place] [address] documented as of this encounter Results * Basic Metabolic Panel (non-fasting) (08/18/2016 4:50 PM EST) Glucose Lvl 82 65 - 199 mg/dL [facility] Comment:Diabetes: >=200 mg/d L plus symptoms BUN 12 8 - 18 mg/dL [facility] Creatinine 0.87 0.70 - 1.20 mg/dL [facility] Comment: Please note that the pediatric reference intervals supplied above were not validated at [facility]. Results from pediatric patients should be interpreted in conjunction to the patient's age, height and muscle mass. Sodium 142 135 - 145 mmol/L [facility] Potassium 3.8 3.5 - 5.0 mmol/L [facility] Comment: Please note: ??Patients with WBC >100,000 may have falsely elevated Potassium levels. ??For accurate Potassium quantification in these patients send serum separator tube (gold top) for subsequent determinations. ??Contact the Clinical Chemistry Laboratory if there are any questions. Chloride 102 98 - 107 mmol/L [facility] CO2 26 22 - 31 mmol/L [facility] Anion Gap 14 5 - 15 mmol/L [facility] Calcium 9.7 8.5 - 10.5 mg/dL [facility] Estimated GFR >60 >=60 [facility] Comment: This estimated [...] the following links into your internet browser. [email or web address] Blood specimen (specimen) 08/18/2016 4:50 PM EST 08/18/2016 5:03 PM EST Narrative Resulting Agency Comment Spec In Lab Alirio Esparza MD CHEMISTRY ORDERABLE S [facility] [place] [address] documented in this encounter Visit Diagnoses Diagnosis Aortic valve stenosis, unspecified etiology documented in this encounter Care Teams Wood Scrap Handler Relationship Specialty Start Date End Date Deborah Quiroga, MALL PLANT CARETAKER PCP - General Family Medicine 03/24/16 02/04/23 documented as of this encounter
--- OUTSIDE RECORDS SUMMARY | 2024-02-17 14:28 | XMS_ITS | Encounter Summary ---
Author Organization [facility] Address [facility] Erika becerra [place] [id number] Care Team Providers Care Soa Architect Name Role Phone Ashley Quirogan Cornelius ANURAG Primary Care Provider [phone] Reason for Visit * Reason Comments Schedule Office Case * Consultation (Routine) - Closed Specialty Diagnoses / Procedures Referred By Contac t Referred To Contact Hematology and Oncology Diagnoses Leukopenia Neutropenia LEUKOPENIA W/NEUTROPENIA Procedures TC PEGFILGRASTIM, 6MG, INJECTION LEUKOPENIA W/NEUTROPENIA Alirio Esparza MD [facility] [place] [address] Mario Alberto Ramos Jr., MD [facility] HEMATOLOGY/[place] [address] Referral ID Status Reason Start Date Expiration Date V isits Requested Visits Authorized [id number] Closed Consult, Test & Treat 07/17/2016 07/17/2017 1 1 Encounter Details Date Type Department Care Team (Late st Contact Info) Description 06/09/2016 3:00 PM EST Office Visit Hematology [place] [phone] Mario Alberto Ramos Jr., MD [facility] HEMATOLOGY/[place] [address] Cyclical neutropenia Social History Tobacco Use Types [...] 3:00 PM EST Hematology Outpatient Clinic [facility] Hematology Outpatient Consult Note CC: 60 [...] Unknown See Comment Flow Cytometry Report Unknown [id number] ... HematoPathology: Flow Cytometry DIAGNOSIS 1. No [...] PM EDT Office Visit Dermatology at [address] [place] [address] Marek Bonilla MD [address] [facility] [place] [address] 06/05/2024 11:30 AM EST Office Visit Rheumatology at [facility] [place] [address] Magdalena Peralta MD [facility] [place] [address] documented as of this encounter Procedures Procedure [...] (06/09/2016 4:53 PM EST) Flow Cytometry Report [id number] ?Location: 3K The signing pathologist has (i) [...] by the Clinical Flow Cytometry Laboratory at [facility]. It has not been cleared or approved [...] high complexity clinical laboratory testing. SPECIMEN PROCESSING [id number] Cells for immunophenotypic analysis were derived from peripheral blood. ??CD45 vs side scatter gating was utilized to identify a lymphoid analysis region that comprises approximately 49-51% of all cells. The following markers were assessed: CD2, CD3, CD4, CD5, CD7, CD8, CD10, CD16, CD19, CD45, CD56, CD57, kappa light chain, and lambda light chain. CLINICAL INFORMATION 60 yo female with neutropenia. LGL panel requested. [facility] 06/09/2016 4:53 PM EST Mario Alberto Ramos Jr., MD PATHOLOGY/CYTOLOGY O RDERABLES Performing Organization Address City/[facility]/ZIP Co de Phone Number [facility] [place] [address] * Scan, Peripheral Blood (06/09/2016 4:53 PM EST) [facility] Plat Estimate Normal [facility] RBC Morphology Normal [facility] Blood specimen (specimen) 06/09/2016 4:53 PM EST 06/09/2016 5:00 PM EST Narrative Resulting Agency Comment Spec In Lab Mario Alberto Ramos Jr., MD HEMATOLOGY ORDERABLE S Performing Organization Address [facility] Co de Phone Number [facility] [place] [address] * (ABNORMAL) Differential, Automated (06/09/2016 4:53 PM EST) [facility] Neutrophils % 27.7 % [facility] Neutr Abs (ANC) 0.48(Crit ical) 1.70 - 6.10 x10(3)/mc L [facility] Comment: Matches Previous Results.. This result has been called to NOT CALLED by Jesusita Argueta on 06 09 2016 at 1817, and has not been read back. MATCHES PREVIOUS RESULTS Lymphocytes % 57.2 % [facility] Lymphocytes Abs 1.0 0.9 - 3.2 x10(3)/mc L [facility] Monocytes % 13.3 % [facility] Monocyte Abs 0.2(L) 0.3 - 0.9 x10(3)/[facility] Eosinophils % 0.6 % [facility] Eosinophils Abs 0.0 0.0 - 0.4 x10(3)/[facility] Basophils % 1.2 % [facility] Basophils Abs 0.0 0.0 - 0.1 x10(3)/[facility] Immature Gran % 0.00 % [facility] Comment: Immature granulocytes(IG's)percentage and absolute count will include metamyelocytes, myelocytes, and promyelocytes. Blood smears from CBCs yielding IG's will be scanned manually for concordance. If this scan disagrees with the automated IG or if promyelocytes are noted, a manual differential will be performed. Amanda Gran Abs 0.00 0.00 - 0.04 x10(3)/[facility] Blood specimen (specimen) 06/09/2016 4:53 PM EST 06/09/2016 5:00 PM EST Narrative Resulting Agency Comment Spec In Lab Mario Alberto Ramos Jr., MD HEMATOLOGY ORDERABLE S Performing Organization Address City/State/[facility] Co de Phone Number [facility] [place] [address] * (ABNORMAL) Hemogram (06/09/2016 4:53 PM EST) WBC 1.7(Critic al) 4.0 - 9.5 x10(3)/[facility] RBC 3.92(L) 4.00 - 5.21 x10(6)/[facility] Hemoglobin 12.4 11.7 - 15.5 gm/dL [facility] Hematocrit 36.7 35.7 - 45.8 % [facility] MCV 93.6 82.6 - 94.4 fL [facility] MCH 31.6 27.1 - 32.0 pg [facility] MCHC 33.8 31.7 - 35.0 gm/dL [facility] Platelets 234 145 - 357 x10(3)/[facility] RDWSD 39.8 37.0 - 46.0 [facility] LABORATORY RDWCV 11.8 11.5 - 14.1 % [facility] MPV 8.6 7.6 - 12.9 [facility]ATORY nRBC % Auto 0.0 % [facility] nRBC Abs Auto 0.000 0.000 - 0.000 x10(3)/[facility] Blood specimen (specimen) 06/09/2016 4:53 PM EST 06/09/2016 5:00 PM EST Narrative Resulting Agency Comment Spec In Lab Mario Alberto Ramos Jr., MD HEMATOLOGY ORDERABLE S Performing Organization Address City/[facility]/ZIP Co de Phone Number [place] [phone] * Immunophenotyping Flow Cytometry (06/09/2016 4:53 PM EST) Immunophenotyping Flow See Comment [facility] Comment: When completed by the Pathologist, the Flow Cytometry Report ([id number]) will display under the Pathology Results section within [facility]. Specimen of unknown material (specimen) 06/09/2016 4:53 PM EST 06/09/2016 5:00 PM EST Narrative Resulting Agency Comment Spec In Lab Mario Alberto Ramos Jr., MD HEMATOLOGY ORDERABLE S [facility] [place] [address] documented in this encounter Visit Diagnoses Diagnosis Cyclical neutropenia Cyclic neutropenia documented in this encounter Care Teams Soa Architect Relationship Specialty Start Date End Date Deborah Quiroga APRN PCP - General Family Medicine 03/24/16 02/04/23 documented as of this encounter
--- OUTSIDE RECORDS SUMMARY | 2024-02-17 14:28 | XMS_ITS | Encounter Summary ---
Author Organization [facility] [place] [address] Care Team Providers Care Supervisor Sewing Room Name Role Phone Junaid, Deborah Shields APRN Primary Care Provider [phone] Reason for Visit * Auth/Cert Specialty Diagnoses / Procedures Referred By Crispin t Referred To Contact Diagnoses Aortic stenosis Procedures PRO REPLACE AORT VALV, PROSTH VALV @REPLACE AORTIC VALVE, OPEN, W\CPB, W\PROSTHETIC VALVE (WRVU 41.32) Referral ID Status Reason Start Date Expiration Date Visits Re quested Visits Authorized [id number] 1 1 Encounter Details Date Type Department Care Team (Late st Contact Info) Description 09/21/2016 7:25 AM EST Anesthesia Event [place] [address] Luis Enrique Quarles MD [facility] [place] [address] Henrik Cooper MD [facility] [place] [address] Anesthesia Record Procedure Summary Procedure Name Responsible [...] 0819 Sternotomy 0844 CV Bypass init 1009 Weblogic Administrator 1014 An Clamp Remove 1031 CP Bypass [...] none; 09/23/16; 0700 09/21/16 0000 by Toshia Alejandre RN 09/23/16 0700 by Marcie Frazier RN Incision 09/21/16; chest; 03/30/22 (LDA cleanup utility RA#[id number]); 1715 (LDA cleanup utility RA#[id number]) 09/21/16 0000 by Toshia Alejandre RN 03/30/22 1715 by Fredy Wing Chest Tube 09/21/16 (#28 angled chest tube to [place]: left: pericardial); Left; 09/22/16; 1119 09/21/16 0000 by Toshia Alejandre RN 09/22/16 1119 by Vero Bonilla RN Chest Tube 09/21/16 (#28 straig ht chest tube to [place]; right: mediastinal'); Right; mediastinum; 09/22/16; 1118 09/21/16 0000 by Toshia Alejandre RN 09/22/16 1118 by Vero Bonilla, VALDO (RETIRED) Peripheral IV Line - Single Lumen 09/21/16; 0648; metacarpal vein (top of hand), left; [id number] catheter system; 20 gauge; valdo Arteaga; 09/23/16; [...] Cooper MD - 09/21/2016 6:50 PM EST [facility] Department of Anesthesiology Post-procedure Note Patient: Purnima Thacker Procedure Summary Date Anesthesia Start Anesthesia Stop Room / Location 09/21/16 07 1152 [facility] OR 16 / [facility] MAIN OR Procedure Diagnosis Surgeon Responsible Provider @REPLACE AORTIC VALVE, OPEN, W\CPB, W\PROSTHETIC VALVE (WRVU 41.32) (N/A Chest); @AORTOPLASTY FOR SUPRAVALVULAR STENOSIS (WRVU 29.33) (N/A Chest) () Alirio Francisco MD Clark, Jeffrey A, MD All Anesthesia Providers: Anesthesiologist: Luis Enrique Quarles MD Escrow Manager: Henrik Cooper MD Last (1hr) Vitals: BP Temp 36.1 ??C (97 ??F) (09/21/16 1800) Pulse 79 (09/21/16 1800) Resp 11 (09/21/16 1800) SpO2 98 % (09/21/16 1800) Patient Location: [facility] Level of Consciousness: Sedated (Pharmacologic/Intentional) Pain Management: [...] 4:15 PM EDT Office Visit Dermatology at [place] [address] [place] [address] Marek Bonilla MD [address] [facility] [place] [address] 06/05/2024 11:30 AM EST Office Visit [place] [address] Magdalena Peralta MD [facility] [place] [address] documented as of this encounter Visit Diagnoses [...] mg documented in this encounter Care Teams Supervisor Sewing Room Relationship Specialty Start Date End Date Deborah Quiroga, HIM ASSISTANT PCP - General Family Medicine 03/24/16 02/04/23 documented as of this encounter
--- OUTSIDE RECORDS SUMMARY | 2024-02-17 14:28 | XMS_ITS | Encounter Summary ---
Author Organization [facility] Address [facility] [place] [address] Care Team Providers Care Solar Sales Advisor Name Role Phone Ashley Quirogan Cornelius ANURAG Primary Care Provider [phone] Encounter Details Date Type Department Care Team (Latest Contact Info) Description 06/19/2016 - 06/19/2016 11:59 PM EST Hospital Encounter [place] [address] Nitesh Pina Jr., MD [facility] HEMATOLOGY/[place] [address] Pain Discharge Disposition: Home Social History Tobacco [...] 4:15 PM EDT Office Visit Dermatology at [place] [address] [facility] [place] [address] Marek Bonilla MD [address] [facility] [place] [address] 06/05/2024 11:30 AM EST Office [place] [address] Magdalena Peralta MD [facility] [place] [address] documented as of this encounter Procedures Procedure Name Priority Date/Time Associated Diagnosis Comments FILM LIBRARY STORAGE ONLY CT CHEST ABDOMEN PELVIS Routine 06/19/2016 12:00 AM EST Pain documented in this encounter Results * Film Library- Storage Only CT Chest Abdomen Pelvis (06/19/2016 12:00 AM EST) Narrative [facility] - 06/20/2016 8:53 AM EST This exam is for storage only and is auto-finalizing. Nitesh Pina Jr., MD IMG FILM LIBRARY ORD ERABLES [place], [place] documented in this encounter Visit Diagnoses Diagnosis Pain Generalized pain documented in this encounter Care Teams Solar Sales Advisor Relationship Specialty Start Date End Date Deborah Quiroga APRN PCP - General Family Medicine 03/24/16 02/04/23 documented as of this encounter
--- OUTSIDE RECORDS SUMMARY | 2024-02-17 14:28 | XMS_ITS | Encounter Summary ---
Author Organization [facility] [place] [address] Care Team Providers Care Abrasive Wheel Molder Name Role Phone Deborah Quiroga APRN Primary Care Provider [phone] Encounter Details Date Type Department Care Team (Late st Contact Info) Description 07/03/2016 External Results [place]ematology [place] [address] Matthew Cervantes, DO [address] [place] [address] Social History Tobacco Use Types Packs/Day Years [...] PM EDT Office Visit Dermatology at [address] [phone] Marek Bonilla MD [address] [facility] DERMATOLOGY [place], [place] [address] 06/05/2024 11:30 AM EST Office [place] [address] Magdalena Peralta MD [facility] [place] [address] documented as of this encounter Procedures Procedure Name Priority Date/Time Associated Diagnosis Comments BONE MARROW ASPIRATION PERFO RMED WITH BONE MARRROW BIOPSY Routine 06/28/2016 documented in this encounter Results * BONE MARROW ASPIRATION PREFORMED WITH BONE MARRROW BIOPSY (06/28/2016) Matthew Cervantes DO GENERAL SURGI DANIEL ORDERABLES documented in this encounter Visit Diagnoses Not on filedocumented in this encounter Care Teams Abrasive Wheel Molder Relationship Specialty Start Date End Date Deborah Quiroga APRN PCP - General Family Medicine 03/24/16 02/04/23 documented as of this encounter
--- OUTSIDE RECORDS SUMMARY | 2024-02-17 14:28 | XMS_ITS | Encounter Summary ---
Author Organization [facility] [place] [address] Care Team Providers Care Customs Consultant Name Role Phone Deborah Quiroga APRN Primary Care Provider [phone] Encounter Details Date Type Department Care Team (Late st Contact Info) Description 07/31/2016 Orders Only Hematology [place] [address] Alexandrea Greenwood RN Neutropenia, unspecified [...] PM EDT Office Visit Dermatology at [address] [place] [address] Marek Bonilla MD [address] [facility] [address] [place] [address] 06/05/2024 11:30 AM EST Office [place] [address] Magdalena Peralta MD [facility] [place] [address] documented as of this encounter Results * [...] type documented in this encounter Care Teams Customs Consultant Relationship Specialty Start Date End Date Deborah Quiroga APRN PCP - General Family Medicine 03/24/16 02/04/23 documented as of this encounter
--- OUTSIDE RECORDS SUMMARY | 2024-02-17 14:28 | XMS_ITS | Encounter Summary ---
Author Organization [facility] [place] [address] Care Team Providers Care It Solutions Sales Consultant Name Role Phone Ashley Quirgoan Sylvia ANURAG Primary Care Provider [phone] Encounter Details Date Type Department Care Team (Latest Contact Info) Description 08/18/2016 4:40 PM EST Laboratory [place] [address] Aortic valve stenosis, unspecified etiology [...] PM EDT Office Visit Dermatology at [address] [place] [address] Marek Bonilla MD [address] [facility] [place] [address] 06/05/2024 11:30 AM EST Office [place] [address] Magdalena Peralta MD [facility] DR [place] [address] documented as of this encounter Procedures Procedure Name Priority Date/Time Associated Diagnosis Comments ABORH RECHECK STATUS Routine 08/18/2016 4:50 PM EST TYPE AND SCREEN, SDP (FUTURE SURGERY, [facility] SAME DAY PROGRAM ONLY) Routine 08/18/2016 4:50 [...] 4:50 PM EST) ABORH Type Recheck Completed [facility] Blood specimen (specimen) 08/18/2016 4:50 PM EST 08/18/2016 5:27 PM EST Narrative Resulting Agency Comment Spec In Lab Alirio Esparza MD [facility] [place] Performing Organization Address [facility] Co de Phone Number [facility] [place] [address] * Antibody screen (08/18/2016 4:50 PM EST) Ab Screen Interp Negative [facility] Expires at 2359 on: 09/24/2016 [facility] Comment: Corrected from 09/17/16 12:00 [Unknown] on 09/09/16 02:32 by Shireen Treviño Blood specimen (specimen) 08/18/2016 4:50 PM EST 08/18/2016 5:11 PM EST Narrative Resulting Agency Comment Spec In Lab Alirio Esparza MD [facility] [place] Performing Organization Address City/[facility]/ZIP Co de Phone Number [facility] [place] [address] * ABO/Rh Typing (08/18/2016 4:50 PM EST) ABORH Type B Pos [facility] Blood specimen (specimen) 08/18/2016 4:50 PM EST 08/18/2016 5:11 PM EST Narrative Resulting Agency Comment Spec In Lab Alirio Esparza MD [facility] [place] [facility] [place] [address] * Basic Metabolic Panel (non-fasting) (08/18/2016 4:50 PM EST) Glucose Lvl 82 65 - 199 mg/dL [facility] Comment:Diabetes: >=200 mg/d L plus symptoms BUN 12 8 - 18 mg/dL [facility] Creatinine 0.87 0.70 - 1.20 mg/dL [facility] Comment: Please note that the pediatric reference intervals supplied above were not validated at [facility]. Results from pediatric patients should be interpreted in conjunction to the patient's age, height and muscle mass. Sodium 142 135 - 145 mmol/L [facility] Potassium 3.8 3.5 - 5.0 mmol/L [facility] Comment: Please note: ??Patients with WBC >100,000 may have falsely elevated Potassium levels. ??For accurate Potassium quantification in these patients send serum separator tube (gold top) for subsequent determinations. ??Contact the Clinical Chemistry Laboratory if there are any questions. Chloride 102 98 - 107 mmol/L [facility] CO2 26 22 - 31 mmol/L [facility] Anion Gap 14 5 - 15 mmol/L [facility] Calcium 9.7 8.5 - 10.5 mg/dL [facility] Estimated GFR >60 >=60 [facility] Comment: This estimated GFR [...] the following links into your internet browser. [email or web address] Blood specimen (specimen) 08/18/2016 4:50 PM EST 08/18/2016 5:03 PM EST Narrative Resulting Agency Comment Spec In Lab Alirio Esparza MD CHEMISTRY ORDERABLE S [facility] [place] [address] documented in this encounter Visit Diagnoses Diagnosis Aortic valve stenosis, unspecified etiology documented in this encounter Care Teams It Solutions Sales Consultant Relationship Specialty Start Date End Date Deborah Quiroga APRN PCP - General Family Medicine 03/24/16 02/04/23 documented as of this encounter
--- OUTSIDE RECORDS SUMMARY | 2024-02-17 14:28 | XMS_ITS | Encounter Summary ---
[place] [address] Care Team Providers Care Social Work Associate Name Role Phone Deborah Quiroga ANURAG Primary Care Provider [phone] Reason for Visit * Reason Onset Date Comments Medical Care Coordination 07/31/2016 Encounter Details Date Type Department Care Team (Late st Contact Info) Description 07/31/2016 Telephone Hematology [place] [address] Alexandrea Greenwood RN Medical Care Coordination Social [...] 08/04/15 RN spoke with Aydee of the [facility] lab who states they can draw pt's cbc on 08/04/15, RN faxed lab req to [phone] at Aydee's request. RN instructed pt on Dr. Borjas's direction above. Pt verbalized understanding. documented in this encounter Plan of Treatment Upcoming Encounters Date Type Department Care Team (Late st Contact Info) Description 02/22/2024 4:15 PM EDT Office Visit Dermatology at [place] [address] [place] [address] Marek Bonilla MD [address] [facility] [address] [place] [address] 06/05/2024 11:30 AM EST Office [place] [address] Magdalena Peralta MD [facility] [place] [address] documented as of this encounter Visit Diagnoses Not on filedocumented in this encounter Care Teams Social Work Associate Relationship Specialty Start Date End Date Deborah Quiroga APRN PCP - General Family Medicine 03/24/16 02/04/23 documented as of this encounter
--- OUTSIDE RECORDS SUMMARY | 2024-02-17 14:28 | XMS_ITS | Encounter Summary ---
Author Organization [facility] [place] [address] Care Team Providers Care Laboratory Development Technician Name Role Phone Deborah Quiroga APRN Primary Care Provider [phone] Encounter Details Date Type Department Care Team (Late st Contact Info) Description 08/18/2016 4:20 PM EST Clinical [place] [address] Social History Tobacco Use Types Packs/Day Years [...] 4:15 PM EDT Office Visit Dermatology at [place] [address] [place] [address] Marek Bonilla MD [address] [facility] [place] [address] 06/05/2024 11:30 AM EST Office [place] [address] Magdalena Peralta MD [facility] [place] [address] documented as of this encounter Visit Diagnoses Not on filedocumented in this encounter Care Teams Laboratory Development Technician Relationship Specialty Start Date End Date Deborah Quiroga APRN PCP - General Family Medicine 03/24/16 02/04/23 documented as of this encounter
--- OUTSIDE RECORDS SUMMARY | 2024-02-17 14:28 | XMS_ITS | Encounter Summary ---
[place] [address] Care Team Providers Care Regional Planner Name Role Phone Deborah Quiroga ANURAG Primary Care Provider [phone] Reason for Visit * Reason Onset Date Comments Medical Care Coordination 07/17/2016 Encounter Details Date Type Department Care Team ([facility] Contact Info) Description 07/17/2016 Telephone Hematology [place] [address] Alexandrea Greenwood RN Medical Care Coordination Social [...] 07/17/2016 12:07 PM EST Message received from typing secretary: Injection/Infusion Referral Call placed to [phone]). Spoke w/ Pasquale. Services to be provided for pt are: Labs @ 10am ([facility]) & Neulasta @ 11am on 07/20/16, CBC only on 07/30/16 Pasquale confirmed they would provide services to pt and I left [facility] for pt to call for appt info. Pt demographics, office note, med list and orders faxed to [facility] documented in this encounter Plan of Treatment Upcoming Encounters Date Type Department Care Team (Late st Contact Info) Description 02/22/2024 4:15 PM EDT Office Visit Dermatology at [place] [address] [place] [address] Marek Bonilla MD [address] [facility] [place] [address] 06/05/2024 11:30 AM EST Office [place] [address] Magdalena Peralta MD [facility] [place] [address] documented as of this encounter Visit Diagnoses Not on filedocumented in this encounter Care Teams Regional Planner Relationship Specialty Start Date End Date Deborah Quiroga, PRODUCT SAFETY TESTER PCP - General Family Medicine 03/24/16 02/04/23 documented as of this encounter
--- OUTSIDE RECORDS SUMMARY | 2024-02-17 14:28 | XMS_ITS | Encounter Summary ---
Author Organization [facility] Address [facility] [place] [address] Care Team Providers Care Cytotechnologist/Histotechnologist Name Role Phone Ashley Quirogan Cornelius ANURAG Primary Care Provider [phone] Encounter Details Date Type Department Care Team (Late st Contact Info) Description 08/11/2016 Telephone Hematology and Oncology at [facility] [place] [address] Markel Borjas MD [facility] [place] [address] Social History Tobacco Use Types Packs/Day Years [...] 4:15 PM EDT Office Visit Dermatology at [place] [address] [place] [address] Marek Bonilla MD [address] [facility] [place] [address] 06/05/2024 11:30 AM EST [place] [address] Magdalena Peralta MD [facility] [place] [address] documented as of this encounter Visit Diagnoses Not on filedocumented in this encounter Care Teams Cytotechnologist/Histotechnologist Relationship Specialty Start Date End Date Deborah Quiroga APRN PCP - General Family Medicine 03/24/16 02/04/23 documented as of this encounter
--- OUTSIDE RECORDS SUMMARY | 2024-02-17 14:28 | XMS_ITS | Encounter Summary ---
Author Organization [facility] Address [facility] [place] [address] Care Team Providers Care Director Writing Name Role Phone Ashley Quirogazac Shields APRN Primary Care Provider [phone] Reason for Visit * Auth/Cert Specialty Diagnoses / Procedures Referred By Crispin t Referred To Contact Diagnoses AVS Procedures CARDIAC CATHETERIZATION Referral ID Status Reason Start Date Expiration Date Visits Re quested Visits Authorized [id number] 1 1 Encounter Details Date Type Department Care Team (Late st Contact Info) Description 06/03/2016 7:30 AM EDT - 06/03/2016 8:30 AM EDT Surgery [place] [phone] Mario Alberto Escobedo MD [facility] [address] [place] [address] CARDIAC CATHETERIZATION Social History Tobacco Use Types [...] by your doctor, do not take any seld-shr-pvdigfe medicinesor herbal preparations without first discussing this with your doctor or pharmacist. There is the possibility of side effects and interactions when these are combined. Follow Up Care Who to call with questions or problems If there are any questions or problems that you think might be related to your cardiac cath or angioplasty, contact the manufacturing support engineer home care liaison by calling [facility] at . * Patient Instructions* Felicia Corrigan - 06/03/2016 9:33 AM EDT Cardiology Instructions Call your doctor if: Chest pain, dyspnea, pain or swelling in legs occurs. If you have non-emergent questions between now and the time of your follow up appointments: -During 8am-5pm Wednesday through Wednesday call [phone] to speak with a nurse in the cardiology clinic -All other times call [phone] and ask to speak to the manager career home care liaison. MEDICATIONS - restart your spironolactone, discontinue prior [...] Appointments: Primary care provider: Cardiology: Deborah Hahn, JUTE BAG CLIPPER [phone] Follow up as planned or as needed. Dr. Esparza [phone] Other follow-up appointment: Hematology - Dr. Mario [...] AM EDT Labs obtained. * Mario Alberto Escobeod MD - 06/03/2016 9:27 AM EDT Interventional [...] 4:15 PM EDT Office Visit Dermatology at [place] [address] [place] [address] Marek Bonilla MD [address] [facility] [address] 06/05/2024 11:30 AM EST Office [place] [address] Magdalena Peralta MD [facility] [place] [address] documented as of this encounter Procedures Procedure [...] Green Tube HOLD (06/03/2016 11:45 AM EDT) [facility] Green Hold Sample in lab. [facility] Blood specimen (specimen) Venous Draw / Unknown 06/03/2016 11:45 AM EDT 06/03/2016 12:12 PM EDT Mario Alberto Escobedo MD CHEMISTRY ORDERABLES Performing Organization Address City/[facility] Co de Phone Number [facility] [place] [place] [address] * Methylmalonic acid, serum (06/03/2016 11:45 AM EDT) [facility] Methylmalonic Acid 0.21 <=0.40 nmol/mL [facility] Comment: Test Performed by: [place] [address] Color Grinder: Raymond Chaudhry II, M.D., Ph.D. Blood specimen (specimen) 06/03/2016 11:45 AM EDT 06/03/2016 1:57 PM EDT Narrative Resulting Agency Comment Spec In Lab Mario Alberto Escobedo MD CHEMISTRY ORDERABLES Performing Organization Address City/[facility]/ZIP Co de Phone Number [facility] [place] [address] * Granulocyte Antibody (06/03/2016 11:45 AM EDT) [facility] Granulocyte Ab Negative Not Applicable [facility] Comment: ADDITIONAL INFORMATION Method: Immunofluorescent Assay Performing Laboratory CLIA# [id number] This test was developed and its performance characteristics determined by [facility] in a manner consistent with CLIA requirements. This test has not been cleared or approved by the U.S. Food and Drug Administration. Test Performed by: [facility] - [address] [address] Color Grinder: Raymond Chaudhry II, M.D., Ph.D. Blood specimen (specimen) 06/03/2016 11:45 AM EDT 06/03/2016 1:57 PM EDT Narrative Resulting Agency Comment Spec In Lab Mario Alberto Escobedo MD IMMUNOLOGY ORDERABLE S Performing Organization Address [facility] de Phone Number [facility] [place] [address] * TSH (06/03/2016 11:45 AM EDT) TSH 2.18 0.27 - 4.20 mcIU/mL [facility] Blood specimen (specimen) 06/03/2016 11:45 AM EDT 06/03/2016 12:11 PM EDT Narrative Resulting Agency Comment Spec In Lab Mario Alberto Escobedo MD CHEMISTRY ORDERABLES Performing Organization Address [facility] de Phone Number [facility] [place] [phone] * Homocysteine Total, Plasma (06/03/2016 11:45 AM EDT) Homocyst Tot 9 <=15 mcmol/L [facility] Blood specimen (specimen) 06/03/2016 11:45 AM EDT 06/03/2016 12:11 PM EDT Narrative Resulting Agency Comment Spec In Lab Mario Alberto Escobedo MD CHEMISTRY ORDERABLES Performing Organization Address [facility] Co de Phone Number [facility] [place] [address] * Folate, serum (06/03/2016 11:45 AM EDT) Folate Lvl >20.0 4.8 - 24.2 ng/mL [facility] Blood specimen (specimen) 06/03/2016 11:45 AM EDT 06/03/2016 12:04 PM EDT Narrative Resulting Agency Comment Spec In Lab Mario Alberto Escobedo MD CHEMISTRY ORDERABLES Performing Organization Address City/[facility] Co de Phone Number [facility] [place] [address] * (ABNORMAL) Sedimentation rate (06/03/2016 11:45 AM EDT) Sed Rate 41(H) 0 - 20 mm/hr [facility] Blood specimen (specimen) 06/03/2016 11:45 AM EDT 06/03/2016 12:04 PM EDT Narrative Resulting Agency Comment Spec In Lab Mario Alberto Escobedo MD HEMATOLOGY ORDERABLE S Performing Organization Address [facility]/ZIP Co de Phone Number [facility] [place] [address] * Lactate Dehydrogenase (06/03/2016 11:45 AM EDT) LDH 164 110 - 220 unit/L [facility] Blood specimen (specimen) 06/03/2016 11:45 AM EDT 06/03/2016 12:11 PM EDT Narrative Resulting Agency Comment Spec In Lab Mario Alberto Escobedo MD CHEMISTRY ORDERABLES Performing Organization Address [facility]/ZIP Co de Phone Number [facility] [place] [address] * Comprehensive metabolic panel (non-fasting) (06/03/2016 11:45 AM EDT) Glucose Lvl 90 65 - 199 mg/dL [facility] Comment:Diabetes: >=200 mg/d L plus symptoms BUN 11 8 - 18 mg/dL [facility] Creatinine 0.83 0.70 - 1.20 mg/dL [facility] Comment: Please note that the pediatric reference intervals supplied above were not validated at [facility]. Results from pediatric patients should [...] the following links into your internet browser. [email or web address] Blood specimen (specimen) 06/03/2016 11:45 AM EDT 06/03/2016 12:11 PM EDT Narrative Resulting Agency Comment Spec In Lab Mario Alberto Escobedo MD CHEMISTRY [place] [address] documented in this encounter Visit Diagnoses Diagnosis [...] Hernandez) documented in this encounter Care Teams Director Writing Relationship Specialty Start Date End Date Deborah Quiroga APRN PCP - General Family Medicine 03/24/16 02/04/23 documented as of this encounter
--- OUTSIDE RECORDS SUMMARY | 2024-02-17 14:28 | XMS_ITS | Encounter Summary ---
Author Organization [facility] [place] [address] Care Team Providers Care Bowl Turner Name Role Phone Ashley Quirogan Sylvia ANURAG Primary Care Provider [phone] Encounter Details Date Type Department Care Team (Late st Contact Info) Description 07/13/2016 External [place] [address] Provider, Scanning Social History Tobacco [...] PM EDT Office Visit Dermatology at [address] [place] [address] Marek Bonilla MD [address] [place] [address] [place] [address] 06/05/2024 11:30 AM EST Office [place] [address] Magdalena Peralta MD [facility] [place] [address] documented as of this encounter Procedures Procedure Name Priority Date/Time Associated Diagnosis Comments SURGICAL PATHOLOGY SCAN Routine 07/13/2016 documented in this encounter Results * Scan Doc: Surgical Pathology (07/13/2016) Nitesh Pina Jr., MD MEDIA MGR SCAN EXT O RDR/RSLT documented in this encounter Visit Diagnoses Not on filedocumented in this encounter Care Teams Bowl Turner Relationship Specialty Start Date End Date Deborah Quiroga, KNIFE CHANGER PCP - General Family Medicine 03/24/16 02/04/23 documented as of this encounter
--- OUTSIDE RECORDS SUMMARY | 2024-02-17 14:28 | XMS_ITS | Encounter Summary ---
Author Organization [facility] Address [facility] [place] [address] Care Team Providers Care Nut And Bolt Assembler Name Role Phone Deborah Quiroga APRN Primary Care Provider Encounter Details Date Type Department Care Team (Late st Contact Info) Description 07/17/2016 9:00 AM EST Office Visit Hematology and Oncology at [facility] [place] [phone] Markel Borjas MD [facility] [place] [address] Neutropenia, unspecified type Social History Tobacco Use [...] 07/17/2016 9:00 AM EST Hematology Outpatient Clinic [facility] Hematology Outpatient Consult Note CC: [...] TOUCH PREP, CLOT SECTION, CORE ??BIOPSY); [OSR# [id number], COLLECTED 06/23/2016, 19 SLIDES]: ?1. 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 Labs will be drawn at [facility] next week Imaging As above - reviewed [...] leukopenia. Will consi kanwal talking to pt's electrical troubleshooter about a switch from ACEI to ARB [...] the original note were not included. [facility] HEM ONC [facility] [address] Date: 07/17/16 Patient Name: Purnima Thacker : 1955 Diagnosis: neutropenia Referral to [site]: [facility] Orders: ? Labs: Fax results to . [x] Draw CBC, copper level, CMV PCR, mononucleosis screen on 07/20 Repeat CBC on 07/30 (to measure response of WBC after Neulasta) ? Growth factor: [x] Neulasta 6mg SQ injection x 1 on 07/20/2016 Signature: Markel Borjas MD beeper # [id number] documented in this encounter Plan of Treatment Upcoming Encounters Date Type Department Care Team (Late st Contact Info) Description 02/22/2024 4:15 PM EDT Office Visit Dermatology at [address] [place] [address] Marek Bonilla MD [address] DERMATOLOGY [place], [place] [id number] 06/05/2024 11:30 AM EST Office [place] [address] Magdalena Peralta MD [facility] [place] [address] documented as of this encounter [...] MD HEMATOLOGY ORDERAB LES Performing Organization Address [facility] Co de Phone Number EXTERNAL LAB * Mononucleosis Screen (07/20/2016 10:30 AM EST) Pathologist [facility] [place] Screen neg neg - neg EXTERNAL LAB Blood specimen (specimen) 07/20/2016 10:30 AM EST Markel Borjas MD CHEMISTRY ORDERABL ES Performing Organization Address [facility] Co de Phone Number EXTERNAL LAB * Copper, serum (07/20/2016 10:30 AM EST) Pathologist [facility] Copper 1.09 0.75 - 1.45 EXTERNAL LAB Blood specimen (specimen) 07/20/2016 10:30 AM EST Markel Borjas MD CHEMISTRY ORDERABL ES Performing Organization Address [facility] Co de Phone Number EXTERNAL LAB * CMV PCR, Quantitative (07/20/2016 10:30 AM EST) Pathologist [facility] CMV PCR,Quantitati ve undetected EXTERNAL LAB Blood specimen (specimen) 07/20/2016 10:30 AM EST Markel Borjas MD IMMUNOLOGY ORDERAB LES Performing Organization Address City/[facility]/ZIP Co de Phone Number EXTERNAL LAB [...] type documented in this encounter Care Teams Nut And Bolt Assembler Relationship Specialty Start Date End Date Deborah Quiroga, ACCOUNTING MANAGER CONTROLLER PCP - General Family Medicine 03/24/16 02/04/23 documented as of this encounter
--- OUTSIDE RECORDS SUMMARY | 2024-02-17 14:28 | XMS_ITS | Encounter Summary ---
[place] [address] Care Team Providers Care Portfolio Director Name Role Phone Deborah Quiroga APRN Primary Care Provider [phone] Reason for Visit * Reason Onset Date Comments Prior Authorization 09/11/2016 Neulasta Encounter Details Date Type Department Care Team (Late st Contact Info) Description 09/11/2016 Telephone Hematology [place] [phone] Monica Wick Prior Authorization (Neulasta ) Social [...] AM EST Prior Auth for Neulasta (Approved) [facility] is a covered facility under the members plan. ID# [id number] Call placed to [phone] Rationale: Can you please start a PA for this pt to receive as outpatient at [facility] on 09/16/16? 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 ??Her last ANC was 0.56 (or 560) on 08/04/16. ??This will need to be approved through her medical as out patient. J code for neulasta. ?? [id number]. Spoke w/ Anna Marie Call Reference [id number] Copay: $ Deductible is not met, patient will have out of pocket costs until deductible is met. documented in this encounter Plan of Treatment Upcoming Encounters Date Type Department Care Team (Late st Contact Info) Description 02/22/2024 4:15 PM EDT Office Visit Dermatology at [place] [address] [place] [address] Marek Bonilla MD [address] [facility] [place] [address] 06/05/2024 11:30 AM EST Office [place] [address] Magdalena Peralta MD [facility] [place] [address] documented as of this encounter Visit Diagnoses Not on filedocumented in this encounter Care Teams Portfolio Director Relationship Specialty Start Date End Date Deborah Quiroga APRN PCP - General Family Medicine 03/24/16 02/04/23 documented as of this encounter
--- OUTSIDE RECORDS SUMMARY | 2024-02-17 14:28 | XMS_ITS | Encounter Summary ---
Author Organization [facility] [place] [address] Care Team Providers Care Assisted Living Associate Name Role Phone Deborah Quiroga APRN Primary Care Provider [phone] Encounter Details Date Type Department Care Team (Late st Contact Info) Description 06/09/2016 Orders Only [place] [phone] Nitesh Pina Jr., MD [facility] HEMATOLOGY/[place] [address] Cyclical neutropenia Social History Tobacco Use Types [...] PM EDT Office Visit Dermatology at [address] [place] [phone] Marek Bonilla MD [address] [facility] [place] [address] 06/05/2024 11:30 AM EST [place] [address] Magdalena Peralta MD [facility] [place] [address] documented as of this encounter Results * Immunophenotyping Flow Cytometry (06/09/2016 4:53 PM EST) Immunophenotyping Flow See Comment [facility] Comment: When completed by the Pathologist, the Flow Cytometry Report ([id number]) will display under the Pathology Results section within eD. Specimen of unknown material (specimen) 06/09/2016 4:53 PM EST 06/09/2016 5:00 PM EST Narrative Resulting Agency Comment Spec In Lab Nitesh Pina Jr., MD HEMATOLOGY ORDERABLE S [facility] [place] [address] documented in this encounter Visit Diagnoses Diagnosis Cyclical neutropenia Cyclic neutropenia documented in this encounter Care Teams Assisted Living Associate Relationship Specialty Start Date End Date Deborah Quiroga APRN PCP - General Family Medicine 03/24/16 02/04/23 documented as of this encounter
--- OUTSIDE RECORDS SUMMARY | 2024-02-17 14:28 | XMS_ITS | Encounter Summary ---
Author Organization [facility] [address] Care Team Providers Care Poultry Scientist Name Role Phone Deborah Quiroga APRN Primary Care Provider [phone] Encounter Details Date Type Department Care Team (Late st Contact Info) Description 08/04/2016 External Results Hematology [place] [address] Alexandrea Greenwood RN Neutropenia, unspecified [...] 4:15 PM EDT Office Visit Dermatology at [address] [place] [address] Marek Bonilla MD [address] [facility] [address] 06/05/2024 11:30 AM EST Office [place] [address] Magdalena Peralta MD [facility] [place] [address] documented as of this encounter Procedures Procedure [...] type documented in this encounter Care Teams Poultry Scientist Relationship Specialty Start Date End Date Deborah Quiroga, HEAD PASTRY CHEF PCP - General Family Medicine 03/24/16 02/04/23 documented as of this encounter
--- OUTSIDE RECORDS SUMMARY | 2024-02-17 14:28 | XMS_ITS | Encounter Summary ---
Author Organization [facility] [place] [address] Care Team Providers Care Sock Folder Name Role Phone Deborah Quiroga APRN Primary Care Provider [phone] Encounter Details Date Type Department Care Team (Latest Contact Info) Description 07/10/2016 2:54 PM EST - 07/10/2016 11:59 PM EST Hospital [place] [phone] Discharge Disposition: Home Social History Tobacco Use [...] 4:15 PM EDT Office Visit Dermatology at [place] [address] [place] [address] Marek Bonilla MD [address] [facility] [place] [address] 06/05/2024 11:30 AM EST Office [place] [address] Magdalena Peralta MD [facility] [place] [address] documented as of this encounter Procedures Procedure Name Priority Date/Time Associated Diagnosis Comments BONE MARROW FINAL REPORT Routine 07/10/2016 3:43 PM EST documented in this encounter Results * Bone Marrow Final Report (07/10/2016 3:43 PM EST) Bone Marrow Final Report [id number] ?Location: OPW The signing pathologist has (i) examined the relevant preparation(s) for the specimen(s) and (ii) rendered or confirmed the diagnosis(es). . ? Bone Marrow Final DIAGNOSIS BONE MARROW (PERIPHERAL SMEAR, ASPIRATE SMEAR, TOUCH PREP, CLOT SECTION, CORE BIOPSY); [OSR# [id number], COLLECTED 06/23/2016, 19 SLIDES]: ?? 1. ??Normocellular [...] clonal lymphoproliferative or myeloproliferative ? disorder (OSR# [id number]) ?Chromosome analysis on the marrow aspirate revealed a normal female karyotype; ?46,XX[25] ??(OSR# [id number]) Electronically signed by: ??Elian Guillen MD Verified: [...] 3/uL Band/Seg 0.52 x103/uL; Lymph 0.75 x103/uL; Calvert 0.15 x103/uL; Eos 0.01%; Baso 0.01 x10 [...] plasma cells represent 3-4% of the cellularity [place] ? Polytypic plasma cell staining, high background Lambda ?Polytypic plasma cell staining, high background Block: ? B2 (Core biopsy 2) Fixative: ?? Formalin ANTIBODY: ?? RESULT/COMMENT CD3 ? Scattered small lymphocytes and lymphoid aggregates highlighted CD20 ?Few scattered small lymphocytes stain ( ?? <CD3 in aggregates) CD138 ? Scattered plasma cells represent 3-4% of the cellularity [place] ? Polytypic plasma cell staining, high background Lambda ?Polytypic plasma cell staining, high background Note: The immunoperoxidase stains reported above were developed and their performance characteristics determined by [facility]. ??They have not been cleared [...] CONSULTATION CASE A - 19 slides labeled [id number], collection date 06/23/2016. [id number] Report to: [facility] Surgical Pathology Department [facility], [facility], 2nd Floor [address] [place], [place] ??[address] [facility] 07/10/2016 3:43 PM EST Nitesh Pina Jr., MD PATHOLOGY/CYTOLOGY O RDERABLES [facility] [place] [id number] documented in this encounter Visit Diagnoses Not on filedocumented in this encounter Care Teams Sock Folder Relationship Specialty Start Date End Date Deborah Quiroga APRN PCP - General Family Medicine 03/24/16 02/04/23 documented as of this encounter
--- OUTSIDE RECORDS SUMMARY | 2024-02-17 14:28 | XMS_ITS | Encounter Summary ---
[place] [address] Care Team Providers Care Mrp Controller Name Role Phone JunaidDeborah APRN Primary Care Provider [phone] Reason for Visit * Reason Onset Date Comments Labs Only 09/16/2016 Encounter Details Date Type Department Care Team (Late st Contact Info) Description 09/16/2016 Telephone Hematology [place] [address] Alexandrea Greenwood, RN Labs Only Social History [...] 09/16/2016 11:09 AM EST Message received from clerical secretary: Purnima is having her Neulasta done today at [facility]. ??She is wondering if we want to do a CBC prior to the injection? [phone] Borjas: CBC is fine RN spoke with Swapna at [facility] who confirms they can draw CBC on pt today, RN faxed CBC w/diff to [facility] lab at [phone] RN relayed to pt that CBC ordered had been faxed to [facility], pt will have CBC drawn today prior to neulasta injection. documented in this encounter Plan of Treatment Upcoming Encounters Date Type Department Care Team (Late st Contact Info) Description 02/22/2024 4:15 PM EDT Office Visit Dermatology at [place] [address] [place] [address] Marek Bonilla MD [address] [facility] [address] [place] [address] 06/05/2024 11:30 AM EST Office [place] [address] Magdalena Peralta MD [facility] [place] [address] documented as of this encounter Results * [...] type documented in this encounter Care Teams Mrp Controller Relationship Specialty Start Date End Date Deborah Quiroga APRN PCP - General Family Medicine 03/24/16 02/04/23 documented as of this encounter
--- OUTSIDE RECORDS SUMMARY | 2024-02-17 14:28 | XMS_ITS | Encounter Summary ---
Author Organization [facility] Address [facility] [place] [address] Care Team Providers Care Relay Repairer Name Role Phone Ashley Quirogazac Shields APRN Primary Care Provider [phone] Reason for Visit * Auth/Cert Specialty Diagnoses / Procedures Referred By Crispin t Referred To Contact Diagnoses AVS Procedures CARDIAC CATHETERIZATION Referral ID Status Reason Start Date Expiration Date Visits Re quested Visits Authorized [id number] 1 1 Encounter Details Date Type Department Care Team (Late st Contact Info) Description 06/03/2016 6:32 AM EDT - 06/03/2016 1:10 PM EDT Hospital Encounter [place] [address] Anjum Oliveros II, MD [facility] [place] [address] Mario Alberto Escobedo MD [facility] [place] [address] Aortic valve stenosis, unspecified etiology; Nonrheumatic aortic [...] by your doctor, do not take any zlco-dds-qoprjhh medicinesor herbal preparations without first discussing this with your doctor or pharmacist. There is the possibility of side effects and interactions when these are combined. Follow Up Care Who to call with questions or problems If there are any questions or problems that you think might be related to your cardiac cath or angioplasty, contact the osteopathic physician international relations teacher by calling [facility] at . * Patient Instructions* Felicia Corrigan - 06/03/2016 9:33 AM EDT Cardiology Instructions Call your doctor if: Chest pain, dyspnea, pain or swelling in legs occurs. If you have non-emergent questions between now and the time of your follow up appointments: -During 8am-5pm Wednesday through Wednesday call [phone] to speak with a nurse in the cardiology clinic -All other times call [phone] and ask to speak to the geothermal electrical engineer international relations teacher. MEDICATIONS - restart your spironolactone, discontinue prior [...] Appointments: Primary care provider: Cardiology: Deborah Hahn, TEAM SUPERVISOR [phone] Follow up as planned or as needed. Dr. Esparza [phone] Other follow-up appointment: Hematology - Dr. Mario [...] PM EDT Office Visit Dermatology at [address] [place] [address] Marek Bonilla MD [address] [facility] [place] [address] 06/05/2024 11:30 AM EST Office [place] [address] Magdalena Peralta MD [facility] [place] [address] documented as of this encounter Procedures Procedure [...] AM EDT) Green Hold Sample in lab. [facility] Blood specimen (specimen) Venous Draw / Unknown 06/03/2016 11:45 AM EDT 06/03/2016 12:12 PM EDT Mario Alberto Escobedo MD CHEMISTRY ORDERABLES Performing Organization Address City/State/[facility] Co de Phone Number [facility] [place] [address] * Methylmalonic acid, serum (06/03/2016 11:45 AM EDT) Methylmalonic Acid 0.21 <=0.40 nmol/mL [facility] Comment: Test Performed by: [facility] - [address] [address] Content Strategist: Raymond Chaudhry II, M.D., Ph.D. Blood specimen (specimen) 06/03/2016 11:45 AM EDT 06/03/2016 1:57 PM EDT Narrative Resulting Agency Comment Spec In Lab Mario Alberto Escobedo MD CHEMISTRY ORDERABLES Performing Organization Address City/State/[facility] Co de Phone Number [facility] [place] [address] * Granulocyte Antibody (06/03/2016 11:45 AM EDT) [facility] Granulocyte Ab Negative Not Applicable [facility] Comment: ADDITIONAL INFORMATION Method: Immunofluorescent Assay Performing Laboratory CLIA# [id number] This test was developed and its performance characteristics determined by [facility] in a manner consistent with CLIA requirements. This test has not been cleared or approved by the U.S. Food and Drug Administration. Test Performed by: [address] [address] Content Strategist: Raymond Chaudhry II, M.D., Ph.D. Blood specimen (specimen) 06/03/2016 11:45 AM EDT 06/03/2016 1:57 PM EDT Narrative Resulting Agency Comment Spec In Lab Mario Alberto Escobedo MD IMMUNOLOGY ORDERABLE S Performing Organization Address [facility] Co de Phone Number [facility] [place] [address] * TSH (06/03/2016 11:45 AM EDT) [facility] TSH 2.18 0.27 - 4.20 mcIU/mL [facility] Blood specimen (specimen) 06/03/2016 11:45 AM EDT 06/03/2016 12:11 PM EDT Narrative Resulting Agency Comment Spec In Lab Mario Alberto Escobedo MD CHEMISTRY ORDERABLES Performing Organization Address [facility] Co de Phone Number [facility] [place] [address] * Homocysteine Total, Plasma (06/03/2016 11:45 AM EDT) [facility] Homocyst Tot 9 <=15 mcmol/L [facility] Blood specimen (specimen) 06/03/2016 11:45 AM EDT 06/03/2016 12:11 PM EDT Narrative Resulting Agency Comment Spec In Lab Mario Alberto Escobedo MD CHEMISTRY ORDERABLES Performing Organization Address City/[facility]/ZIP Co de Phone Number [facility] [place] [address] * Folate, serum (06/03/2016 11:45 AM EDT) Folate Lvl >20.0 4.8 - 24.2 ng/mL [facility] Blood specimen (specimen) 06/03/2016 11:45 AM EDT 06/03/2016 12:04 PM EDT Narrative Resulting Agency Comment Spec In Lab Mario Alberto Escobedo MD CHEMISTRY ORDERABLES Performing Organization Address [facility] Co de Phone Number [facility] [place] [address] * (ABNORMAL) Sedimentation rate (06/03/2016 11:45 AM EDT) Sed Rate 41(H) 0 - 20 mm/hr [facility] Blood specimen (specimen) 06/03/2016 11:45 AM EDT 06/03/2016 12:04 PM EDT Narrative Resulting Agency Comment Spec In Lab Mario Alberto Escobedo MD HEMATOLOGY ORDERABLE S Performing Organization Address City/[facility]/ZIP Co de Phone Number [facility] [place] [address] * Lactate Dehydrogenase (06/03/2016 11:45 AM EDT) LDH 164 110 - 220 unit/L [facility] Blood specimen (specimen) 06/03/2016 11:45 AM EDT 06/03/2016 12:11 PM EDT Narrative Resulting Agency Comment Spec In Lab Mario Alberto Escobedo MD CHEMISTRY ORDERABLES [facility] [place] [address] * Comprehensive metabolic panel (non-fasting) (06/03/2016 11:45 AM EDT) Glucose Lvl 90 65 - 199 mg/dL [facility] Comment:Diabetes: >=200 mg/d L plus symptoms BUN 11 8 - 18 mg/dL [facility] Creatinine 0.83 0.70 - 1.20 mg/dL [facility] Comment: Please note that the pediatric reference intervals supplied above were not validated at [facility]. Results from pediatric patients should be interpreted in conjunction to the patient's age, height and muscle mass. Sodium 143 135 - 145 mmol/L [facility] Potassium 4.0 3.5 - 5.0 mmol/L [facility] Comment: Please note: ??Patients with WBC >100,000 may have falsely elevated Potassium levels. ??For accurate Potassium quantification in these patients send serum separator tube (gold top) for subsequent determinations. ??Contact the Clinical Chemistry Laboratory if there are any questions. Chloride 104 98 - 107 mmol/L [facility] CO2 25 22 - 31 mmol/L [facility] Anion Gap 14 5 - 15 mmol/L [facility] Calcium 9.2 8.5 - 10.5 mg/dL [facility] Total Protein 7.0 6.1 - 8.0 gm/dL [facility] Albumin 4.0 3.2 - 5.2 gm/dL [facility] AST 17 0 - 30 unit/L [facility] ALT 9 0 - 30 unit/L [facility] Alk Phos 81 40 - 104 unit/L [facility] Total Bilirubin 0.4 0.2 - 1.3 mg/dL [facility] Bili, Direct 0.1 0.0 - 0.3 mg/dL [facility] Estimated GFR >60 >=60 [facility] Comment: This estimated GFR (eGFR) [...] the following links into your internet browser. [email or web address] Blood specimen (specimen) 06/03/2016 11:45 AM EDT 06/03/2016 12:11 PM EDT Narrative Resulting Agency Comment Spec In Lab Mario Alberto Escobedo MD CHEMISTRY ORDERABLES [facility] [place] [address] documented in this encounter Visit Diagnoses Diagnosis [...] Hernandez) documented in this encounter Care Teams Relay Repairer Relationship Specialty Start Date End Date Deborah Quiroga, ANURAG PCP - General Family Medicine 03/24/16 02/04/23 documented as of this encounter
--- OUTSIDE RECORDS SUMMARY | 2024-02-17 14:28 | XMS_ITS | Encounter Summary ---
[place] [address] Care Team Providers Care Bedspread Cutter Hand Name Role Phone Deborah Quiroga ANURAG Primary Care Provider [phone] Encounter Details Date Type Department Care Team (Late st Contact Info) Description 09/11/2016 Orders Only Hematology [place] [address] Alexandrea Greenwood RN Social History [...] the original note were not included. [facility] [place] [place] [id number] Date: 09/11/16 Patient Name: Onesimo Thacker : 1955 Diagnosis: Neutropenia Referral to [site]: [facility] Orders: ? Growth factor: [x] Neulasta 6mg SQ injection x 1 on 09/16/16 Signature: Markel Borjas MD beeper # [id number] Co-signature [if needed]: documented in this encounter Plan of Treatment Upcoming Encounters Date Type Department Care Team (Late st Contact Info) Description 02/22/2024 4:15 PM EDT Office Visit Dermatology at [place] [address] [place] [address] Marek Bonilla MD [address] [place] [address] 06/05/2024 11:30 AM EST Office [place] [address] Magdalena Peralta MD [facility] [place] [address] documented as of this encounter Procedures Procedure Name Priority Date/Time Associated Diagnosis Comments TRANSESOPHAGEAL ECHOCARDIOGRAM (GAVINO) Routine 09/22/2016 documented in this encounter Results * Transesophageal Echocardiogram (GAVINO) (09/22/2016) Anatomical Region Laterality Modality Other 09/22/2016 Narrative 09/22/2016 8:30 AM EST Procedure: ?Transesophageal Echocardiogram Patient: ?ANDREW ONESIMO M ? (Age): 1955(61y) Med Rec#: ? [id number] ?Sex: ?M ? Site Loc: ? [facility] ?Ht / Wt: ??(cm)/ (kg) ? Pt. Loc: ?OR ? Study Date: ?? 09/21/2016 ?Pt. Type: Tape: ? Referring: Alirio Francisco Reading: Henrik Yarbrough ([id number]) Music Writer: Jacobo Patel ([id number]) Interpreting Fellow: Jacobo Patel ([id number]) Diagnosis: *Aortic valve disorders (424.1) CPT Codes: *Echo GAVINO Full (06937) Indication: ?? AVR for severe Rhythm: ? [...] ? Mid-Inferior ?Normal ? Mid-Inferoseptal ?Normal ? [place]-Septal ? Normal ? [place]-Anterior ? Normal ? [place]-Lateral ?Normal ? [place]-Inferior ? Normal ? [place]-Tip ?Normal ? This report has been electronically signed by: Henrik Yarbrough M.D. ? 09/22/2016 08:30:41 Images reviewed and interpretation verified [facility] Cardiac [facility]trasound [facility] Procedure Note Henrik Yarbrough MD - 09/22/2016 Procedure: Transesophageal Echocardiogram Patient: ANDREW Mejias (Age): 1955(61y) Med Rec#: [id number] Sex: M Site Loc: [facility] Ht / Wt: (cm)/ (kg) Pt. Loc: OR Study Date: 09/21/2016 Pt. Type: Tape: Referring: Alirio Francisco Reading: Henrik Yarbrough ([id number]) Music Writer: Jacobo Patel ([id number]) Interpreting Fellow: Jacobo Patel ([id number]) Diagnosis: *Aortic valve disorders (424.1) CPT Codes: *Echo GAVINO Full (13585) Indication: AVR for severe Rhythm: Sinus SUMMARY: [...] Normal Mid-Posterolateral Normal Mid-Inferior Normal Mid-Inferoseptal Normal [place]-Septal Normal [place]-Anterior Normal [place]-Lateral Normal [place]-Inferior Normal [place]-Tip Normal This report has been electronically signed by: Henrik Yarbrough M.D. 09/22/2016 08:30:41 Images reviewed and interpretation verified [facility] Cardiac [facility]trasound [facility] Unknown ECHO ORDERABLES documented in this encounter Visit Diagnoses Not on filedocumented in this encounter Care Teams Bedspread Cutter Hand Relationship Specialty Start Date End Date Deborah Quiroga APRN PCP - General Family Medicine 03/24/16 02/04/23 documented as of this encounter
--- OUTSIDE RECORDS SUMMARY | 2024-02-17 14:28 | XMS_ITS | Encounter Summary ---
Author Organization [facility] [place] [address] Care Team Providers Care Interpretive Naturalist Name Role Phone Deborah Quiroga APRN Primary Care Provider [phone] Encounter Details Date Type Department Care Team (Late st Contact Info) Description 07/22/2016 External Results Hematology [place] [address] Alexandrea Greenwood RN Neutropenia, unspecified [...] 4:15 PM EDT Office Visit Dermatology at [address] [place] [address] Marek Bonilla MD [address] [facility] [place] [address] 06/05/2024 11:30 AM EST Office [place] [address] Magdalena Peralta MD [facility] [place] [address] documented as of this encounter Procedures Procedure Name Priority Date/Time Associated Diagnosis Comments COPPER, SERUM Routine 07/20/2016 10:30 AM EST Neutropenia, unspecified type CMV PCR, QUANTITATIVE Routine 07/20/2016 10:30 AM EST Neutropenia, unspecified type MONONUCLEOSIS SCREEN ([facility]) Routine 07/20/2016 10:30 AM EST Neutropenia, unspecified type CBC (WITH DIFF) Routine 07/20/2016 10:30 AM EST Neutropenia, unspecified type documented in this encounter Results * Copper, serum (07/20/2016 10:30 AM EST) Copper 1.09 0.75 - 1.45 EXTERNAL LAB Blood specimen (specimen) 07/20/2016 10:30 AM EST Markel Borjas MD CHEMISTRY ORDERABL ES Performing Organization Address [facility]/ZIP Co de Phone Number EXTERNAL LAB * CMV PCR, Quantitative (07/20/2016 10:30 AM EST) CMV PCR,Quantitati ve undetected EXTERNAL LAB Blood specimen (specimen) 07/20/2016 10:30 AM EST Markel Borjas MD IMMUNOLOGY ORDERAB LES EXTERNAL LAB * Mononucleosis Screen (07/20/2016 10:30 AM EST) [place] Screen neg neg - neg EXTERNAL LAB Blood specimen (specimen) 07/20/2016 10:30 AM EST Markel Borjas MD CHEMISTRY ORDERABL ES Performing Organization Address [facility]/ZIP Co de Phone Number EXTERNAL LAB [...] type documented in this encounter Care Teams Interpretive Naturalist Relationship Specialty Start Date End Date Deborah Quiroga, TARPER PCP - General Family Medicine 03/24/16 02/04/23 documented as of this encounter
--- OUTSIDE RECORDS SUMMARY | 2024-02-17 14:28 | XMS_ITS | Encounter Summary ---
Author Organization [facility] [place] [address] Care Team Providers Care Undercar Specialist Name Role Phone Deborah Quiroga APRN Primary Care Provider [phone] Encounter Details Date Type Department Care Team (Late st Contact Info) Description 09/17/2016 External Results Hematology [place] [address] Alexandrea Greenwood RN Neutropenia, unspecified [...] PM EDT Office Visit Dermatology at [address] [place] [address] Marek Bonilla MD [address] [facility] [place] [address] 06/05/2024 11:30 AM EST Office [place] [address] Magdalena Peralta MD [facility] [place] [address] documented as of this encounter Procedures Procedure [...] type documented in this encounter Care Teams Undercar Specialist Relationship Specialty Start Date End Date Deborah Quiroga, SHOVEL HANDLE ASSEMBLER PCP - General Family Medicine 03/24/16 02/04/23 documented as of this encounter
--- OUTSIDE RECORDS SUMMARY | 2024-02-17 14:28 | XMS_ITS | Encounter Summary ---
[place] [address] Care Team Providers Care Account Resolution Analyst Name Role Phone Deborah Quiroga ANURAG Primary Care Provider [phone] Reason for Visit * Reason Onset Date Comments Pre Procedure Call 06/18/2016 Encounter Details Date Type Department Care Team (Late st Contact Info) Description 06/18/2016 Telephone Hematology [place] [phone] Alexandera Greenwood RN Pre Procedure Call Social History [...] PM EDT Office Visit Dermatology at [address] [phone] Marek Bonilla MD [address] [facility] [place] [address] 06/05/2024 11:30 AM EST Office [place] [address] Magdalena Peralta MD [facility] [place] [address] documented as of this encounter Visit Diagnoses Not on filedocumented in this encounter Care Teams Account Resolution Analyst Relationship Specialty Start Date End Date Deborah Quiroga APRN PCP - General Family Medicine 03/24/16 02/04/23 documented as of this encounter
--- OUTSIDE RECORDS SUMMARY | 2024-02-17 14:28 | XMS_ITS | Encounter Summary ---
Author Organization [facility] [place] [address] Care Team Providers Care Iron Worker Foreman Name Role Phone Ashley Quirogazac Shields APRN Primary Care Provider [phone] Reason for Visit * Auth/Cert Specialty Diagnoses / Procedures Referred By Crispin t Referred To Contact Diagnoses Aortic stenosis Procedures PRO REPLACE AORT VALV, PROSTH VALV @REPLACE AORTIC VALVE, OPEN, W\CPB, W\PROSTHETIC VALVE (WRVU 41.32) Referral ID Status Reason Start Date Expiration Date Visits Re quested Visits Authorized [id number] 1 1 Encounter Details Date Type Department Care Team (Late st Contact Info) Description 09/21/2016 7:30 AM EST - 09/21/2016 12:04 PM EST Surgery [place] [address] Alirio Esparza MD [facility] [place] [address] @REPLACE AORTIC VALVE, OPEN, W\CPB, W\PROSTHETIC VALVE [...] Patient Age: 61 y.o. Birthdate: 1955 Language: Nigerien Race: White Ethnicity: Not nor Admit Date: 09/21/2016 Discharge Date: 09/25/2016 Attending Physician: Alirio Esparza MD Follow-up Recommendations for Providers: Please continue routine management of cardiovascular risk factors including blood pressure, lipids,glucose, etc. Please note any changes to medications. Patient to follow-up with PCP, Deborah Quiroga APRN, in 1-2 weeks. Patient to follow-up with Physical Biochemist, Dr. Antelmo Burrell, in two weeks. Patient to follow-up with Cardiac Surgery, Dr. Alirio Esparza, to be scheduled for before 10/19/2016, with CXR, EKG, and Echo. Inpatient Provider Contact Information: [facility] Section of Cardiac Surgery [facility] [address] FAX [phone] Discharge Diagnoses (Hospital Problems) Primary Diagnoses: Secondary [...] @REPLACE AORTIC VALVE, OPEN, W\CPB, W\PROSTHETIC VALVE ([facility] performed by Alirio Esparza MD at [facility] MAIN OR ??? Pro aortoplas for supravalv sten N/A 09/21/2016 @AORTOPLASTY FOR SUPRAVALVULAR STENOSIS (VU 29.33) performed by Alirio Esparza MD at [facility] MAIN OR Prior To Admission [...] Hospital Course: Purnima Thacker was admitted to [facility] on 09/21/2016 via the Same Day [...] Alirio Esparza and/or the Cardiac Surgery Physician Supervisor Kennel Team may be reached at . Antibiotic prophylaxis: You will need to take antibiotics prior to many invasive tests and treatments, such as dental cleaning, which should be done every 6 months. Your primary care physician or your dentist can prescribe this medication. Please refer to the card with the [place] [employer] Guidelines for more information. You have been provided with 3 copies of this card. Keep one for your self. Give one to your primary care physician and one to your dentist. Please refer to the [place] [employer] Guidelines for more information. Good [...] Dr. Alirio Jones. You may use a [place] Track or treadmill but avoid any pulling [...] friends, go to a movie, go to jain, etc. Heavy activities: No hunting, skiing, jogging, [...] should resume a low fat, low cholesterol, [place] [employer] Diet. Driving: No driving until [...] the outpatient Phase 2 Cardiac Rehabilitation at [facility]. The patient agrees to a referral to this program. The referral will be sent at discharge and the patient should be contacted by the program within 1- 2 weeks from discharge. Future Appointments and Orders Future Appointments Provider Department Dept Phone 11/20/2016 11:30 AM Markel Borjas MD [facility] [phone] Future Orders Complete By Expires Echocardiogram Transthoracic([facility]) [CJB994 Custom] 10/18/2016 (Approximate) 09/18/2017 Process Instructions: If the Echocardiogram is to be PERFORMED in a location other than [place]--STOP and order FOC993, Echocardiogram South/External. Scheduling Instructions: Questions: Is a Bubble Study requested?: No Does the patient have Congenital Heart Disease?: No Does patient require sedation?: None GA rationale: Should this service be billed to the research sponsor?: EKG 12 Lead [EKG1 Custom] 10/18/2016 (Approximate) 09/25/2017 Process Instructions: Scheduling Instructions: Questions: Which location will this be performed?: [place] Is a rhythm strip needed?: No If EKG Reason is Pre-op Evaluation, indicate diagnosis for surgery.: Should this service be billed to the research sponsor?: XR Chest PA & Lateral (Generic) [[id number] Custom] 10/18/2016 (Approximate) 09/25/2017 Process Instructions: Scheduling Instructions: Questions: Where will study be performed?: [facility]- Radiology Portable exam?: No Reason for exam and clinical history: s/p AVReplacement, patch annuloplasty 1 month f/u Other pertinent information: Stat read required?: Date of injury if applicable: Requested Time: Referral to Cardiac Rehab [CVB110 Custom] As directed Process Instructions: If no progress note charted, please enter Clinical details in comments. Scheduling Instructions: Questions: My question or request is: s/p AVR. Cardiac rehab at [facility] Referral to Home Health - at DISCHARGE [BUK8254 CPT(R)] As directed Process Instructions: Scheduling Instructions: Comments: DOCUMENTATION FOR VNA SERVICES (INCLUDING THOSE PATIENTS WITH MEDICARE COVERAGE REQUIRING HOME VNA SERVICES AND/OR HOSPICE SERVICES) PATIENT'S LOCATION: Purnima M Kirstie [address] [place] [phone] (home) No relevant phone numbers on file. Airplane Gastank Liner Assembler's Name: self In discussion with the attending physician, it is certified that this patient is under their care and that they, or a Nurse Practitioner, or Physician Supervisor Kennel who is working directly with them, hada [...] for services as follows: HOME HEALTH AGENCY: [facility] PHONE: [phone] FAX: [phone] RN orders: Cardiopulmonary assessment, incisional assessment, assess [...] issues please call the Cardiac SurgeryOffice at [phone] FOR MEDICARE ONLY: In discussion with the [...] noted. Questions: Agency name and contact information: [facility] VNA Patient location post discharge: home What services are requested: Registered Nurse Physical Therapy Occupational Therapy Start date: Responsible MD post discharge contact info: Arrangements for VNA/home care: As above. VN RN OR PCP TO PLEASE REMOVE CHEST TUBE SUTURES ON OR AFTER 09/30/16 Signed: Crispin Aranda PA-C 09/25/2016 [facility] Section of Cardiac Surgery [facility] [address] FAX [phone] Date: 09/25/2016 CC: ANURAG Alford Caryn E, APRN [address] [place] [address] documented in this encounter Discharge Instructions * [...] Alirio Esparza and/or the Cardiac Surgery Physician Supervisor Kennel Team may be reached at . Antibiotic prophylaxis: You will need to take antibiotics prior to many invasive tests and treatments, such as dental cleaning, which should be done every 6 months. Your primary care physician or your dentist can prescribe this medication. Please refer to the card with the [place] [employer] Guidelines for more information. You have been provided with 3 copies of this card. Keep one for your self. Give one to your primary care physician and one to your dentist. Please refer to the [place] [employer] Guidelines for more information. Good [...] Dr. Alirio Jones. You may use a [place] Track or treadmill but avoid any pulling [...] friends, go to a movie, go to jain, etc. Heavy activities: No hunting, skiing, jogging, [...] should resume a low fat, low cholesterol, [place] [employer] Diet. Driving: No driving until [...] the outpatient Phase 2 Cardiac Rehabilitation at [facility]. The patient agrees to a referral to [...] PM EST Cardiac Surgery Progress Note: ID: [id number] S/p AVR, patch aortoplasty POD#2. PMH of [...] Gas) No results found for: PHART, PO2ART, SBB0CWC Assessment/Plan: TPW out this am. (+) BM. [...] Signed: Crispin Aranda PA-C 09/24/2016 Team pager: [phone]; [phone] [facility] Section of Cardiac Surgery * Leonor Henson S, SAUSAGE WRAPPER - 09/23/2016 10:48 AM EST Cardiac Surgery Progress Note: ID: [id number] s/p AVR, patch aortoplasty POD#2. PMH of [...] Gas) No results found for: PHART, PO2ART, NTH0YHQ Assessment/Plan: s/p AVR, patch aortoplasty POD#2. PMH of Neutropenia, HLD, HTN, Depression, obesity, . Transferred from [facility] yesterday and doing well. Pathway. Will dc [...] Surgeon on rounds. Signed: Leonor Henson APRN [facility] Section of Cardiac Surgery Date: 09/23/2016 * Nico Palacios PA - 09/22/2016 9:56 AM EST Cardiac Surgery Progress Note: ID: [id number] s/p AVR, patch aortoplasty POD#1. PMH of [...] NT, ND, soft. Ext: Moves all extremities. [place], well perfused. Incisions: C/D/I Tubes/Lines/Drains: PIV, leanna, [...] Attending Surgeon on rounds. Signed: EKATERINA KIM [facility] Section of Cardiac Surgery Date: 09/22/2016 [...] Outcome (s) achieved Date Met: 09/25/16 09/25/16 2314 Coping/Psychosocial Plan Of Care Reviewed With patient [...] with outpatient services Lalitha Cohen SPTA Pager: [phone] Inpatient Physical Therapy Patient status, treatment interventions, and goals discussed with student. I am in agreement with all details and associated flowsheet rows as documented and was present for all aspects of the patient treatment session. Nery Jaramillo PTA Pager [phone] Problem: Acute Rehab Services Goal & Intervention Plan Goal: Bed Mobility Goal Stand Alone Therapy Goal Outcome: Ongoing (Interventions Implemented as Appropriate) 09/22/16 1611 09/25/16 0947 Bed Mobility Goal Bed Mobility Goal, Time to Achieve 4 days -- Bed Mobility Goal, Activity Type scoot/bridge;supine to sit/sit to supine -- Bed Mobility Goal, [place] Level independent -- Bed Mobility Goal, Additional [...] Achieve 4 days -- Gait Training Goal, [place] Level independent -- Gait Training Goal, Distance [...] * Plan of Care - Nery Jaramillo SEVERITY OF ILLNESS COORDINATOR - 09/23/2016 2:23 PM EST Problem: Patient [...] home with home health [facility] Rad[facility] Pager: [phone] Inpatient Physical Therapy Patient status, treatment interventions, and goals discussed with student. I am in agreement with all details and associated flowsheet rows as documented and was present for all aspects of the patient treatment session. Nery Jaramillo PTA Pager [phone] Problem: Acute Rehab Services Goal & Intervention Plan Goal: Bed Mobility Goal Stand Alone Therapy Goal Outcome: Ongoing (Interventions Implemented as Appropriate) 09/22/16161009/23/161411 Bed Mobility Goal Bed Mobility Goal, Time to Achieve 4 days -- Bed Mobility Goal, Activity Type scoot/bridge;supine to sit/sit to supine -- Bed Mobility Goal, [place] Level independent -- Bed Mobility Goal, Additional [...] Achieve 4 days -- Gait Training Goal, [place] Level independent -- Gait Training Goal, Distance [...] days -- Transfer Training Goal, Activity Type zha-lm-iziue/xugpm-se-kvb;zue-xv-ultgb/emmvq-il-ili -- Transfer Train Goal, [place] Level independent -- Transfer Training Goal, Additional Goal abides sternal precautions -- Transfer Training Goal, Outcome -- goal met * Consult Note - Jana Crenshaw RN - 09/23/2016 9:41 AM EST [facility] CARDIAC REHABILITATION Purnima Thacker was seen today regarding participation in the outpatient Phase 2 Cardiac Rehabilitation at [facility]. The patient agrees to a referral to [...] Another Service: (cardiac rehab) NICOLE HERNANDEZ, PT Pager:[phone] Inpatient Physical Therapy Problem: Acute Rehab Services Goal & Intervention Plan Goal: Bed Mobility Goal Stand Alone Therapy Goal Outcome: Ongoing (Interventions Implemented as Appropriate) 09/22/16 1611 Bed Mobility Goal Bed Mobility Goal, Time to Achieve 4 days Bed Mobility Goal, Activity Type scoot/bridge;supine to sit/sit to supine Bed Mobility Goal, [place] Level independent Bed Mobility Goal, Additional Goal able to abide sternal precautions during transfers Goal: Gait Training Goal Stand Alone Therapy Goal Outcome: Ongoing (Interventions Implemented as Appropriate) 09/22/16 1611 Gait Training Goal Gait Training Goal, Date Established 09/22/16 Gait Training Goal, Time to Achieve 4 days Gait Training Goal, [place] Level independent Gait Training Goal, Distance to Achieve ascend and descends 2 steps independently Goal: Goal Transfer Training Stand Alone Therapy Goal Outcome: Ongoing (Interventions Implemented as Appropriate) 09/22/16 1611 Goal Transfer Training Transfer Training Goal, Time to Achieve 4 days Transfer Training Goal, Activity Type tux-nv-obmhm/fdxku-df-rwt;syn-ke-hftef/guvme-uv-enz Transfer Train Goal, [place] Level independent Transfer Training Goal, Additional Goal [...] of completing AD's at home, chooses her fqfvhx-gn-lac, Martha Thacker (home) for her DPOAH, 2nd choice in friend, Nitesh Leroy, [place], [place] Current Coping/Education/Information Needs: patient sitting up [...] close by, Rashad & Raymond, and her lfovjq-ma-nuw Martha Thacker who she has chosen to be her DPOAH. Also has a friend Nitesh Leroy who lives in [place], [place], also her DPOAH choice. Behavioral Health History: none on file in [facility] Substance Use/Abuse: none on file in [facility] Other Pertinent/Service Specific Information: none Health/Prescription Coverage: Primary Insurance: [employer] Secondary Insurance: none Prescription Coverage: yes, per patient no issues Preferred Pharmacy: ?? Other: none Primary Care Provider: Deborah Quiroga, SAUSAGE WRAPPER [phone] Patient/Caregiver Goals of Treatment: per medical team recommendations at discharge for CT surgery Potential Needs for Transition of Care: Rehab/SNF: TBD Home Health: TBD DME: no Dialysis: no Community Resources: non3 Transportation: ride home with a friend Other: none Anticipated Barriers to Discharge/Special Considerations: none anticipated at this time Plan: patient will need VNA services at discharge. The patient/associate sales representative has been provided a list of Home Health Agencies/DME vendors which servetheir preferred geographic area. A letter describing our affiliations was reviewed with them and they were educated about their right to choose where referrals are placed. Patient requests referral to: [facility]. PHONE: [phone] FAX: [phone] Expected date of discharge: Fri/Sat? CM called VNA to confirm referral, talked with VALDO Bunn/intake who stated she was familiar w/patient & would monitor her progress through curaspan. Referral routed to the Restorative Aide for matching with agency/vendor and to provide any required information. A member of the Care Management team will continue to monitor progress, follow for continuity of care and assist with transition of care planning. Amanda Moreno RN Pager: [phone] * Op Note - Alirio Esparza MD - 09/21/2016 12:53 PM EST 09/23/2016 Purnima Thacker 1955 [id number] Preoperative Diagnosis: Symptomatic aortic stenosis Postoperative Diagnosis: Symptomatic aortic stenosis Procedure: Aortic valve replacement: Bovine Pericardial 25 mm Surgeon: Alirio Esparza M.D. Supervisor Kennel: Philip BALL Anesthesia: General endotracheal anesthesia Drains: [...] applied. The patient was transported to the [facility] on [place]. All counts were correct. * [...] Operative Note Patient Name: Purnima Thacker : [id number] MR#: [id number] Case Date: 09/21/2016 Surgeon: Surgeon(s) and Role: * Alirio Esparza MD - Primary * Nico Palacios PA - Physician Supervisor Kennel Preoperative diagnosis: Postoperative diagnosis: Procedure(s) (LRB): @REPLACE [...] 4:15 PM EDT Office Visit Dermatology at [place] [address] [facility] [place] [address] Marek Bonilla MD [address] [facility] [place] [address] 06/05/2024 11:30 AM EST Office [place] [address] Magdalena Peralta MD [facility] [place] [address] Scheduled Orders Name Type Priority Associated Diagnoses [...] IMPLANTABLE DEVICES SCAN 09/26/2016 12:00 AM EST PMP CERTIFIED PROJECT MANAGER SCAN 09/26/2016 12:00 AM EST POTASSIUM Routine [...] Routine 09/22/2016 4:00 AM EST CARDIAC ENZYMES ([facility]/CGP) Routine 09/22/2016 4:00 AM EST CREATININE Routine [...] SCAN EXT O RDR/RSLT * SCAN DOC: PMP CERTIFIED PROJECT MANAGER (09/26/2016 12:00 AM EST) Anatomical Region Laterality Modality Other Narrative 09/26/2016 12:00 AM EST Ordered by an unspecified provider. Scanning Provider MEDIA MGR SCAN EXT O RDR/RSLT * Potassium (09/25/2016 4:32 AM EST) Potassium 4.4 3.5 - 5.0 mmol/L [facility] Comment: Please note: ??Patients with [...] MD CHEMISTRY ORDERABLE S Performing Organization Address City/State/[place] Co de Phone Number [facility] [place] [address] * (ABNORMAL) Differential, Automated (09/24/2016 9:56 AM EST) Pathologist [facility] Neutrophils % 76.8 % [facility] Neutr Abs (ANC) 7.79(H) 1.70 - 6.10 x10(3)/mc L [facility] Lymphocytes % 11.1 % [facility] Lymphocytes Abs 1.1 0.9 - 3.2 x10(3)/mc L [facility] Monocytes % 8.5 % [facility] Monocyte Abs 0.9 0.3 - 0.9 x10(3)/mc L [facility] Eosinophils % 0.5 % [facility] Eosinophils Abs 0.0 0.0 - 0.4 x10(3)/mc L [facility] Basophils % 0.2 % [facility] Basophils Abs 0.0 0.0 - 0.1 x10(3)/mc L [facility] Immature Gran % 2.90 % [facility] Comment: Immature granulocytes(IG's)percentage and absolute count will include metamyelocytes, myelocytes, and promyelocytes. Blood smears from CBCs yielding IG's will be scanned manually for concordance. If this scan disagrees with the automated IG or if promyelocytes are noted, a manual differential will be performed. Amanda Gran Abs 0.29(H) 0.00 - 0.04 x10(3)/ L [facility] Blood specimen (specimen) 09/24/2016 9:56 AM EST 09/24/2016 10:04 AM EST Narrative Resulting Agency Comment Spec In Lab Alirio Esparza MD HEMATOLOGY ORDERABL ES [facility] [place] [address] * (ABNORMAL) Hemogram (09/24/2016 9:56 AM EST) WBC 10.1(H) 4.0 - 9.5 x10(3)/[facility] RBC 2.87(L) 4.00 - 5.21 x10(6)/[facility] Hemoglobin 9.4(L) 11.7 - 15.5 gm/dL [facility] Hematocrit 28.3(L) 35.7 - 45.8 % [facility] MCV 98.6(H) 82.6 - 94.4 fL [facility] MCH 32.8(H) 27.1 - 32.0 pg [facility] MCHC 33.2 31.7 - 35.0 gm/dL [facility] Platelets 141(L) 145 - 357 x10(3)/[facility] LAB[facility] RDWSD 45.0 37.0 - 46.0 [facility] RDWCV 12.6 11.5 - 14.1 % [facility] MPV 9.4 7.6 - 12.9 [facility] nRBC % Auto 1.1 % [facility] nRBC Abs Auto 0.110(H) 0.000 - 0.000 x10(3)/[facility] Blood specimen (specimen) 09/24/2016 9:56 AM EST 09/24/2016 10:04 AM EST Narrative Resulting Agency Comment Spec In Lab Alirio Esparza MD HEMATOLOGY ORDERABL ES [facility] [place] [address] * (ABNORMAL) Basic Metabolic Panel (non-fasting) (09/24/2016 9:56 AM EST) Glucose Lvl 111 65 - 199 mg/dL [facility] Comment:Diabetes: >=200 mg/d L plus symptoms BUN 23(H) 8 - 18 mg/dL [facility] Comment:result rechecked-ART Creatinine 0.89 0.70 - 1.20 mg/dL [facility] Comment: Please note that the pediatric reference intervals supplied above were not validated at [facility]. Results from pediatric patients should be interpreted in conjunction to the patient's age, height and muscle mass. Sodium 138 135 - 145 mmol/L [facility] Potassium 4.2 3.5 - 5.0 mmol/L [facility] Comment: Please note: ??Patients with WBC >100,000 may have falsely elevated Potassium levels. ??For accurate Potassium quantification in these patients send serum separator tube (gold top) for subsequent determinations. ??Contact the Clinical Chemistry Laboratory if there are any questions. Chloride 98 98 - 107 mmol/L [facility] CO2 26 22 - 31 mmol/L [facility] Anion Gap 14 5 - 15 mmol/L [facility] Calcium 9.1 8.5 - 10.5 mg/dL [facility] Estimated GFR >60 >=60 [facility] Comment: This estimated GFR [...] the following links into your internet browser. [email or web address] Blood specimen (specimen) 09/24/2016 9:56 AM EST 09/24/2016 10:04 AM EST Narrative Resulting Agency Comment Spec In Lab Alirio Esparza MD CHEMISTRY ORDERABLE S [facility] [place] [id number] * XR Chest PA & Lateral (Generic) [...] EST) Potassium 4.5 3.5 - 5.0 mmol/L [facility] Comment: Please note: ??Patients with [...] MD CHEMISTRY ORDERABLE S Performing Organization Address City/[facility]/[place] Co de Phone Number [facility] [place] [address] * POCT Glucose (09/22/2016 8:17 AM EST) [facility] Signature POC Glucose 131 65 - 199 mg/dL [facility] Comment: Supplemental ranges: <140 mg/dL before meals <180 mg/dL all other times of the day Blood specimen (specimen) 09/22/2016 8:17 AM EST 09/22/2016 8:17 AM EST Alirio Esparza MD POINT OF CARE TEST ORDERABLES Performing Organization Address [facility]/[place] Co de Phone Number [facility] [place] [address] * POCT Glucose (09/22/2016 4:01 AM EST) [facility] Signature POC Glucose 135 65 - 199 mg/dL [facility] Comment: Supplemental ranges: <140 mg/dL before meals <180 mg/dL all other times of the day Blood specimen (specimen) 09/22/2016 4:01 AM EST 09/22/2016 4:01 AM EST Alirio Esparza MD POINT OF CARE TEST ORDERABLES Performing Organization Address City/[facility]/[place] Co de Phone Number [facility] [place] [address] * Scan, Peripheral Blood (09/22/2016 4:00 AM EST) Plat Estimate Normal [facility] RBC Morphology Abnormal [facility] Macrocytes 1-5 /HPF [facility] Giant Platelets Less than 1 /HPF [facility] Blood specimen (specimen) 09/22/2016 4:00 AM EST 09/22/2016 4:34 AM EST Narrative Resulting Agency Comment Spec In Lab Alirio Esparza MD HEMATOLOGY ORDERABL ES Performing Organization Address [facility]/[place] Co de Phone Number [facility] [place] [address] * Electrolytes panel (09/22/2016 4:00 AM EST) Pathologist [facility] Sodium 145 135 - 145 mmol/L [facility] Potassium 4.4 3.5 - 5.0 mmol/L [facility] Comment: Please note: ??Patients with WBC >100,000 may have falsely elevated Potassium levels. ??For accurate Potassium quantification in these patients send serum separator tube (gold top) for subsequent determinations. ??Contact the Clinical Chemistry Laboratory if there are any questions. Chloride 107 98 - 107 mmol/L [facility] CO2 24 22 - 31 mmol/L [facility] Anion Gap 14 5 - 15 mmol/L [facility] Blood specimen (specimen) Venous Draw / Unknown 09/22/2016 4:00 AM EST 09/22/2016 4:34 AM EST Narrative Resulting Agency Comment Spec In Lab Alirio Esparza MD CHEMISTRY ORDERABLE S Performing Organization Address City/[facility]/ZIP Co de Phone Number [facility] [place] [address] * (ABNORMAL) Differential, Automated (09/22/2016 4:00 AM EST) Neutrophils % 70.9 % [facility] Neutr Abs (ANC) 5.33 1.70 - 6.10 x10(3)/mc L [facility] Lymphocytes % 9.1 % [facility] Lymphocytes Abs 0.7(L) 0.9 - 3.2 x10(3)/[facility] Monocytes % 18.0 % [facility] Monocyte Abs 1.4(H) 0.3 - 0.9 x10(3)/[facility] Eosinophils % 0.0 % [facility] Eosinophils Abs 0.0 0.0 - 0.4 x10(3)/[facility] Basophils % 0.1 % [facility] Basophils Abs 0.0 0.0 - 0.1 x10(3)/[facility] Immature Gran % 1.90 % [facility] Comment: Immature granulocytes(IG's)percentage and absolute count will include metamyelocytes, myelocytes, and promyelocytes. Blood smears from CBCs yielding IG's will be scanned manually for concordance. If this scan disagrees with the automated IG or if promyelocytes are noted, a manual differential will be performed. Amanda Gran Abs 0.14(H) 0.00 - 0.04 x10(3)/[facility] Blood specimen (specimen) 09/22/2016 4:00 AM EST 09/22/2016 4:34 AM EST Narrative Resulting Agency Comment Spec In Lab Alirio Esparza MD HEMATOLOGY ORDERABL ES [facility] [place] [address] * (ABNORMAL) Hemogram (09/22/2016 4:00 AM EST) WBC 7.5 4.0 - 9.5 x10(3)/[facility] RBC 2.93(L) 4.00 - 5.21 x10(6)/[facility] Hemoglobin 9.2(L) 11.7 - 15.5 gm/dL [facility] Hematocrit 28.0(L) 35.7 - 45.8 % [facility] MCV 95.6(H) 82.6 - 94.4 fL [facility] MCH 31.4 27.1 - 32.0 pg [facility] MCHC 32.9 31.7 - 35.0 gm/dL [facility] Platelets 161 145 - 357 x10(3)/[facility] RDWSD 44.0 37.0 - 46.0 fL [facility] RDWCV 12.6 11.5 - 14.1 % [facility] MPV 9.3 7.6 - 12.9 fL [facility] nRBC % Auto 0.3 % [facility] nRBC Abs Auto 0.020(H) 0.000 - 0.000 x10(3)/[facility] Blood specimen (specimen) 09/22/2016 4:00 AM EST 09/22/2016 4:34 AM EST Narrative Resulting Agency Comment Spec In Lab Alirio Esparza MD HEMATOLOGY ORDERABL ES [facility] [place] [address] * (ABNORMAL) Cardiac Enzymes (09/22/2016 4:00 AM EST) Troponin-T 0.13(H) <=0.03 ng/mL [facility] Comment: 0.03 ng/mL: Represents the 99th percentile upper reference limit for normals. >0.03 ng/mL: Elevated cardiac troponin T level indicative of myocardial damage. Diagnosis of acute, evolving or recent SC requires a typical rise and gradual fall [...] consensus document of the Joint Society of Cardiology/[place] College [employer] Committee for the redefinition of myocardial infarction. ??Journal of the [place] College [employer] 2000; 36: 959-969] CK, Total 338(H) 0 - 160 unit/L [facility] Blood specimen (specimen) 09/22/2016 4:00 AM EST 09/22/2016 4:34 AM EST Narrative Resulting Agency Comment Spec In Lab Alirio Esparza MD CHEMISTRY ORDERABLE S Performing Organization Address [facility]/[place] Co de Phone Number [facility] [place] [address] * (ABNORMAL) Glucose, fasting (09/22/2016 4:00 AM EST) Glucose Fasting 137(H) 65 - 99 mg/dL [facility] Comment: ?Fasting* Glucose Interpretive Criteria [...] of Diabetes Mellitus, Position Statement from the [place] [employer] Association. ??Diabetes Care, Volume 33, Supplement 1, Aug 2009 Blood specimen (specimen) 09/22/2016 4:00 AM EST 09/22/2016 4:34 AM EST Narrative Resulting Agency Comment Spec In Lab Alirio Esparza MD CHEMISTRY ORDERABLE S Performing Organization Address [facility]/[place] Co de Phone Number [facility] [place] [address] * (ABNORMAL) Creatinine (09/22/2016 4:00 AM EST) Creatinine 0.69(L) 0.70 - 1.20 mg/dL [facility] Comment: Please note that the pediatric reference intervals supplied above were not validated at [facility]. Results from pediatric patients should be interpreted in conjunction to the patient's age, height and muscle mass. Estimated GFR >60 >=60 [facility] Comment: This estimated GFR [...] the following links into your internet browser. [email or web address] Blood specimen (specimen) 09/22/2016 4:00 AM EST 09/22/2016 4:34 AM EST Narrative Resulting Agency Comment Spec In Lab Alirio Esparza MD CHEMISTRY ORDERABLE S Performing Organization Address [facility]/[place] Co de Phone Number [facility] [place] [address] * BUN (09/22/2016 4:00 AM EST) BUN 10 8 - 18 mg/dL [facility] Blood specimen (specimen) 09/22/2016 4:00 AM EST 09/22/2016 4:34 AM EST Narrative Resulting Agency Comment Spec In Lab Alirio Esparza MD CHEMISTRY ORDERABLE S Performing Organization Address [facility]/[place] Co de Phone Number [facility] [place] [address] * POCT Glucose (09/21/2016 9:59 PM EST) POC Glucose 146 65 - 199 mg/dL [facility] Comment: Supplemental ranges: <140 mg/dL before meals <180 mg/dL all other times of the day Blood specimen (specimen) 09/21/2016 9:59 PM EST 09/21/2016 9:59 PM EST Alirio Esparza MD POINT OF CARE TEST ORDERABLES Performing Organization Address [facility]/[place] Co de Phone Number [facility] [place] [address] * POCT Glucose (09/21/2016 7:26 PM EST) POC Glucose 152 65 - 199 mg/dL [facility] Comment: Supplemental ranges: <140 mg/dL before meals <180 mg/dL all other times of the day Blood specimen (specimen) 09/21/2016 7:26 PM EST 09/21/2016 7:26 PM EST Alirio Esparza MD POINT OF CARE TEST ORDERABLES Performing Organization Address [facility]/[place] Co de Phone Number [facility] [place] [address] * POCT Glucose (09/21/2016 6:00 PM EST) POC Glucose 146 65 - 199 mg/dL [facility] Comment: Supplemental ranges: <140 mg/dL before meals <180 mg/dL all other times of the day Blood specimen (specimen) 09/21/2016 6:00 PM EST 09/21/2016 6:00 PM EST Alirio Esparza MD POINT OF CARE TEST ORDERABLES Performing Organization Address [facility]/[place] Co de Phone Number [facility] [place] [address] * (ABNORMAL) BLOOD GAS 2 ARTERIAL (09/21/2016 4:42 PM EST) pH Art 7.35(L) 7.35 - 7.45 [facility] pCO2 Art 48(H) 35 - 45 mmHg [facility] pO2 Art 108(H) 85 - 104 mmHg [facility] HCO3 Art 26.0 20.0 - 26.0 mmol/L [facility] BE Art 0.5 -3.0 - 3.0 mmol/L [facility] Hgb Blood Gas 10.4(L) 11.7 - 15.5 gm/dL [facility] O2HB Art 96.2 94.0 - 97.0 % [facility] COHB Art 0.0 % [facility] Comment: Nonsmokers: 0.5-1.5% COHB Smokers: Variable, but usually less than 10% Toxic: 20-30% COHB Lethal: Greater than 60% COHB METHB Art 0.7 <=1.5 % [facility] Na Whole Blood 139 135 - 145 mmol/L [facility] K Whole Blood 4.2 3.5 - 5.0 mmol/L [facility] Comment: Please note: Patients with WBC >100,000 may have falsely elevated Potassium levels. Contact the Clinical Chemistry Laboratory if there are any questions. ICa Whole Blood 1.13(L) 1.15 - 1.33 mmol/L [facility] Comment: Note: ??Total bilirubin higher than 20 mg/dL may lead to falsely low ionized calcium. CL Whole Blood 106 98 - 107 mmol/L [facility] Gluc Whole Bld 147 65 - 199 mg/dL [facility] Comment:Diabetes: >=200 mg/d L plus symptoms. Lactate WB 1.2 0.5 - 2.2 mmol/L [facility] FIO2 Art 40 % [facility] PF Ratio Art 270 [facility] Blood specimen (specimen) 09/21/2016 4:42 PM EST 09/21/2016 4:42 PM EST Alirio Esparza MD CHEMISTRY ORDERABLE S [facility] [place] [address] * POCT Glucose (09/21/2016 4:07 PM EST) POC Glucose 150 65 - 199 mg/dL [facility] Comment: Supplemental ranges: <140 mg/dL before meals <180 mg/dL all other times of the day Blood specimen (specimen) 09/21/2016 4:07 PM EST 09/21/2016 4:07 PM EST Alirio Esparza MD POINT OF CARE TEST ORDERABLES Performing Organization Address [facility]/[place] Co de Phone Number [facility] [place] [address] * (ABNORMAL) Hemoglobin (09/21/2016 4:05 PM EST) Hemoglobin 9.9(L) 11.7 - 15.5 gm/dL [facility] Blood specimen (specimen) 09/21/2016 4:05 PM EST 09/21/2016 4:20 PM EST Narrative Resulting Agency Comment Spec In Lab Alirio Esparza MD HEMATOLOGY ORDERABL ES Performing Organization Address [facility]/[place] Co de Phone Number [facility] [place] [address] * Potassium (09/21/2016 4:05 PM EST) [facility] Potassium 4.6 3.5 - 5.0 mmol/L [facility] Comment: Please note: ??Patients with [...] MD CHEMISTRY ORDERABLE S Performing Organization Address [facility]/[place] Co de Phone Number [facility] [place] [address] * POCT Glucose (09/21/2016 2:52 PM EST) POC Glucose 117 65 - 199 mg/dL [facility] Comment: Supplemental ranges: <140 mg/dL before meals <180 mg/dL all other times of the day Blood specimen (specimen) 09/21/2016 2:52 PM EST 09/21/2016 2:52 PM EST Alirio Esparza MD POINT OF CARE TEST ORDERABLES Performing Organization Address [facility]/[place] Co de Phone Number [facility] [place] [address] * POCT Glucose (09/21/2016 1:51 PM EST) POC Glucose 108 65 - 199 mg/dL [facility] Comment: Supplemental ranges: <140 mg/dL before meals <180 mg/dL all other times of the day Blood specimen (specimen) 09/21/2016 1:51 PM EST 09/21/2016 1:51 PM EST Alirio Esparza MD POINT OF CARE TEST ORDERABLES Performing Organization Address [facility]/[place] Co de Phone Number [facility] [place] [address] * POCT Glucose (09/21/2016 12:54 PM EST) POC Glucose 128 65 - 199 mg/dL [facility] Comment: Supplemental ranges: <140 mg/dL before meals <180 mg/dL all other times of the day Blood specimen (specimen) 09/21/2016 12:54 PM EST 09/21/2016 12:54 PM EST Alirio Esparza MD POINT OF CARE TEST ORDERABLES Performing Organization Address [facility]/[place] Co de Phone Number [facility] [place] [address] * EKG 12 Lead (09/21/2016 12:26 PM EST) Ventricular rate 87 BPM MUSE SYSTEM Atrial Rate 87 BPM MUSE SYSTEM P-R Interval 256 ms MUSE SYSTEM QRS Duration 90 ms MUSE SYSTEM Q-T Interval 406 ms MUSE SYSTEM QTC Calculated (Bezet) 488 ms MUSE SYSTEM Calculated P [place] 24 degrees MUSE SYSTEM Calculated R [place] 21 degrees MUSE SYSTEM Calculated T [place] -5 degrees MUSE SYSTEM INTERPRETATION Sinus rhythm with 1st degree A-V block Nonspecific T wave abnormality Prolonged QT Abnormal ECG When compared with ECG of 19-MAY-2016 11:43, [place] interval has increased T wave inversion now [...] course of the esophagus and below the [id number]. There is a right IJ PA catheter [...] the course of theesophagus and below the [id number]. There is a right IJ PA catheter [...] EST) pH Art 7.41 7.35 - 7.45 [facility] pCO2 Art 42 35 - 45 mmHg [facility] pO2 Art 356(H) 85 - 104 mmHg [facility] HCO3 Art 26.2(H) 20.0 - 26.0 mmol/L [facility] BE Art 1.6 -3.0 - 3.0 mmol/L [facility] Hgb Blood Gas 10.7(L) 11.7 - 15.5 gm/dL [facility] O2HB Art 98.1(H) 94.0 - 97.0 % [facility] COHB Art 0.3 % [facility] Comment: Nonsmokers: 0.5-1.5% COHB Smokers: Variable, but usually less than 10% Toxic: 20-30% COHB Lethal: Greater than 60% COHB METHB Art 0.8 <=1.5 % [facility] Na Whole Blood 140 135 - 145 mmol/L [facility] K Whole Blood 3.8 3.5 - 5.0 mmol/L [facility] Comment: Please note: Patients with WBC >100,000 may have falsely elevated Potassium levels. Contact the Clinical Chemistry Laboratory if there are any questions. ICa Whole Blood 1.15(L) 1.15 - 1.33 mmol/L [facility] Comment: Note: ??Total bilirubin higher than 20 mg/dL may lead to falsely low ionized calcium. CL Whole Blood 106 98 - 107 mmol/L [facility] Gluc Whole Bld 135 65 - 199 mg/dL [facility] Comment:Diabetes: >=200 mg/d L plus symptoms. Lactate WB 2.2 0.5 - 2.2 mmol/L [facility] FIO2 Art 100 % [facility] PF Ratio Art 356 [facility] Blood specimen (specimen) 09/21/2016 12:20 PM EST 09/21/2016 12:20 PM EST Alirio Esparza MD CHEMISTRY ORDERABLE S [facility] [place] [address] * (ABNORMAL) BLOOD GAS 2 ARTERIAL (09/21/2016 10:54 AM EST) pH Art 7.43 7.35 - 7.45 [facility] pCO2 Art 40 35 - 45 mmHg [facility] pO2 Art 297(H) 85 - 104 mmHg [facility] HCO3 Art 26.0 20.0 - 26.0 mmol/L [facility] BE Art 1.6 -3.0 - 3.0 mmol/L [facility] Hgb Blood Gas 8.6(L) 11.7 - 15.5 gm/dL [facility] O2HB Art 98.6(H) 94.0 - 97.0 % [facility] COHB Art 0.5 % [facility] Comment: Nonsmokers: 0.5-1.5% COHB Smokers: Variable, but usually less than 10% Toxic: 20-30% COHB Lethal: Greater than 60% COHB METHB Art 0.3 <=1.5 % [facility] Na Whole Blood 134(L) 135 - 145 mmol/L [facility] K Whole Blood 4.5 3.5 - 5.0 mmol/L [facility] Comment: Please note: Patients with WBC >100,000 may have falsely elevated Potassium levels. Contact the Clinical Chemistry Laboratory if there are any questions. ICa Whole Blood 1.16 1.15 - 1.33 mmol/L [facility] Comment: Note: ??Total bilirubin higher than 20 mg/dL may lead to falsely low ionized calcium. CL Whole Blood 104 98 - 107 mmol/L [facility] Gluc Whole Bld 240(H) 65 - 199 mg/dL [facility] Comment:Diabetes: >=200 mg/d L plus symptoms. Lactate WB 2.4(H) 0.5 - 2.2 mmol/L [facility] FIO2 Art 95 % [facility] Flow Art 0.7 LPM [facility] PF Ratio Art 313 [facility] Temp Art 36.7 Celsius [facility] Blood specimen (specimen) 09/21/2016 10:54 AM EST 09/21/2016 10:54 AM EST Alirio Esparza MD CHEMISTRY ORDERABLE S Performing Organization Address [facility]/[place] Co de Phone Number [facility] [place] [address] * Thrombin time (09/21/2016 10:50 AM EST) Thrombin Time 19 15 - 20 sec [facility] Comment: A prolongation in the [...] MD HEMATOLOGY ORDERABLE S Performing Organization Address [facility]/[place] Co de Phone Number [facility] [place] [address] * Fibrinogen (09/21/2016 10:50 AM EST) Fibrinogen 228 180 - 510 mg/dL [facility] Comment: Called by: JONNATHAN, Read back by: MICHELLE ALEJANDRE_, Date/Time:09/21/16 11:11. A fibrinogen level >100 mg/dL is adequate for hemostasis in most patients without underlying bleeding disorders. Blood specimen (specimen) 09/21/2016 10:50 AM EST 09/21/2016 10:56 AM EST Narrative Resulting Agency Comment Spec In Lab Luis Enrique Quarles MD HEMATOLOGY ORDERABLE S Performing Organization Address [facility]/[place] Co de Phone Number [facility] [place] [address] * APTT (09/21/2016 10:50 AM EST) PTT 32 25 - 35 sec [facility] Comment: The recommended therapeutic range for full dose, unfractionated heparin at [facility] is 80 ? 114 seconds. The use of the anti-Xa (heparin) level rather than the PTT is recommended for monitoring anticoagulation intensity in critically ill patients receiving unfractionated heparin by continuous IV infusion. Blood specimen (specimen) 09/21/2016 10:50 AM EST 09/21/2016 10:56 AM EST Narrative Resulting Agency Comment Spec In Lab Luis Enrique Quarles MD HEMATOLOGY ORDERABLE S Performing Organization Address [facility] de Phone Number [facility] [place] [address] * (ABNORMAL) Prothrombin Time (09/21/2016 10:50 AM EST) PT 18.7(H) 12.0 - 15.0 sec [facility] Comment: An [...] Luis Enrique Quarles MD HEMATOLOGY ORDERABLE S [facility] [place] [address] * (ABNORMAL) Hemogram (09/21/2016 10:50 AM EST) WBC 14.7(H) 4.0 - 9.5 x10(3)/[facility] RBC 2.40(L) 4.00 - 5.21 x10(6)/[facility] Hemoglobin 7.9(L) 11.7 - 15.5 gm/dL [facility] Hematocrit 23.2(L) 35.7 - 45.8 % [facility] Comment: This result has been called to MICHELLE GRIGSBY by ASHU MORENO on 09 21 2016 at 1102, and has been read back. MCV 96.7(H) 82.6 - 94.4 fL [facility] MCH 32.9(H) 27.1 - 32.0 pg [facility] MCHC 34.1 31.7 - 35.0 gm/dL [facility] Platelets 117(L) 145 - 357 x10(3)/[facility] RDWSD 42.6 37.0 - 46.0 [facility] RDWCV 12.1 11.5 - 14.1 % [facility] MPV 9.2 7.6 - 12.9 [facility] nRBC % Auto 0.1 % [facility] nRBC Abs Auto 0.020(H) 0.000 - 0.000 x10(3)/[facility] Blood specimen (specimen) 09/21/2016 10:50 AM EST 09/21/2016 10:56 AM EST Narrative Resulting Agency Comment Spec In Lab Luis Enrique Quarles [place] [address] * Prepare Platelets, Apheresis (09/21/2016 10:30 AM EST) Dispensed? Yes [facility] Blood specimen (specimen) 09/21/2016 10:30 AM EST 09/21/2016 10:28 AM EST Alirio Esparza MD BLOOD BANK PRODUCT ORDERABLES Performing Organization Address [facility]/[place] [address] * (ABNORMAL) BLOOD GAS 2 ARTERIAL (09/21/2016 10:05 AM EST) pH Art 7.33(L) 7.35 - 7.45 [facility] pCO2 Art 54(Critic al) 35 - 45 mmHg [facility] Comment:Noted by instrument technician apprentice. pO2 Art 218(H) 85 - 104 mmHg [facility] HCO3 Art 27.9(H) 20.0 - 26.0 mmol/L [facility] BE Art 2.0 -3.0 - 3.0 mmol/L [facility] Hgb Blood Gas 8.6(L) 11.7 - 15.5 gm/dL [facility] O2HB Art 98.4(H) 94.0 - 97.0 % [facility] COHB Art 0.5 % [facility] Comment: Nonsmokers: 0.5-1.5% COHB Smokers: Variable, but usually less than 10% Toxic: 20-30% COHB Lethal: Greater than 60% COHB METHB Art 0.3 <=1.5 % [facility] Na Whole Blood 129(L) 135 - 145 mmol/L [facility] K Whole Blood 6.2(Criti gabrielle) 3.5 - 5.0 mmol/L [facility] Comment: Noted by instrument technician apprentice. Please note: Patients with WBC >100,000 may have falsely elevated Potassium levels. Contact the Clinical Chemistry Laboratory if there are any questions. ICa Whole Blood 0.95(L) 1.15 - 1.33 mmol/L [facility] Comment: Note: ??Total bilirubin higher than 20 mg/dL may lead to falsely low ionized calcium. CL Whole Blood 100 98 - 107 mmol/L [facility] Gluc Whole Bld 289(H) 65 - 199 mg/dL [facility] Comment:Diabetes: >=200 mg/d L plus symptoms. Lactate WB 2.2 0.5 - 2.2 mmol/L [facility] Temp Art 37.0 Celsius [facility] Blood specimen (specimen) 09/21/2016 10:05 AM EST 09/21/2016 10:05 AM EST Alirio Esparza MD CHEMISTRY ORDERABLE S [facility] [place] [address] * (ABNORMAL) BLOOD GAS 2 ARTERIAL (09/21/2016 9:44 AM EST) pH Art 7.22(Criti gabrielle) 7.35 - 7.45 [facility] Comment:Noted by instrument technician apprentice. pCO2 Art 70(Critica l) 35 - 45 mmHg [facility] Comment:Noted by instrument technician apprentice. pO2 Art 224(H) 85 - 104 mmHg [facility] HCO3 Art 27.8(H) 20.0 - 26.0 mmol/L [facility] BE Art 0.0 -3.0 - 3.0 mmol/L [facility] Hgb Blood Gas 8.7(L) 11.7 - 15.5 gm/dL [facility] O2HB Art 98.5(H) 94.0 - 97.0 % [facility] COHB Art 0.6 % [facility] Comment: Nonsmokers: 0.5-1.5% COHB Smokers: Variable, but usually less than 10% Toxic: 20-30% COHB Lethal: Greater than 60% COHB METHB Art 0.3 <=1.5 % [facility] Na Whole Blood 131(L) 135 - 145 mmol/L [facility] K Whole Blood 5.9(H) 3.5 - 5.0 mmol/L [facility] Comment: Please note: Patients with WBC >100,000 may have falsely elevated Potassium levels. Contact the Clinical Chemistry Laboratory if there are any questions. ICa Whole Blood 1.00(L) 1.15 - 1.33 mmol/L [facility] Comment: Note: ??Total bilirubin higher than 20 mg/dL may lead to falsely low ionized calcium. CL Whole Blood 101 98 - 107 mmol/L [facility] Gluc Whole Bld 227(H) 65 - 199 mg/dL [facility] Comment:Diabetes: >=200 mg/d L plus symptoms. Lactate WB 2.1 0.5 - 2.2 mmol/L [facility] Blood specimen (specimen) 09/21/2016 9:44 AM EST 09/21/2016 9:44 AM EST Alirio Esparza MD CHEMISTRY ORDERABLE S Performing Organization Address City/[facility]/[place] Co de Phone Number [facility] [place] [address] * (ABNORMAL) Hemoglobin (09/21/2016 9:42 AM EST) Hemoglobin 7.2(L) 11.7 - 15.5 gm/dL [facility] Blood specimen (specimen) 09/21/2016 9:42 AM EST 09/21/2016 9:51 AM EST Narrative Resulting Agency Comment Spec In Lab Alirio Esparza MD HEMATOLOGY ORDERABL ES Performing Organization Address City/[facility]/ZIP Co de Phone Number [facility] [place] [address] * Platelet count (09/21/2016 9:42 AM EST) Platelets 159 145 - 357 x10(3)/mc L [facility] Plat Immature % 1.6 0.0 - 7.4 % [facility] Comment: Limitation of the Immature Platelet Fraction (IPF)-May be less reliable when the platelet count is less than 16e314/uL due to statistical imprecision. The IPF value [...] in a decreased state of production. References: [employer] The Clinical Value of the Immature Platelet Fraction (IPF) in Cell Recovery Document Number 10-1143 12/2010 [employer] The Role of the Immature Platelet Fraction (IPF) in the Differential Diagnosis of Thrombocytopenia, Document MKT-[id number] V05 P05 Blood specimen (specimen) 09/21/2016 9:42 AM EST 09/21/2016 9:51 AM EST Narrative Resulting Agency Comment Spec In Lab Alirio Esparza MD HEMATOLOGY ORDERABL ES [facility] [place] [address] * (ABNORMAL) Hematocrit (09/21/2016 9:42 AM EST) Hematocrit 21.6(L) 35.7 - 45.8 % [facility] Comment: This result has been called to MICHELLE ALEJANDRE by Serjio Frazier on 09 21 2016 at 0957, and has been read back. Blood specimen (specimen) 09/21/2016 9:42 AM EST 09/21/2016 9:51 AM EST Narrative Resulting Agency Comment Spec In Lab Alirio Esparza MD HEMATOLOGY ORDERABL ES Performing Organization Address [facility]/[place] Co de Phone Number [facility] [place] [address] * Fibrinogen (09/21/2016 9:42 AM EST) Fibrinogen 219 180 - 510 mg/dL [facility] Comment: Called by: JONNATHAN, Read back by: MICHELLE ALEJANDRE_, Date/Time:09/21/16 10:03_. A fibrinogen level >100 mg/dL is adequate for hemostasis in most patients without underlying bleeding disorders. Blood specimen (specimen) 09/21/2016 9:42 AM EST 09/21/2016 9:51 AM EST Narrative Resulting Agency Comment Spec In Lab Alirio Esparza MD HEMATOLOGY ORDERABL ES Performing Organization Address [facility]/[place] Co de Phone Number [facility] [place] [address] * (ABNORMAL) BLOOD GAS 2 ARTERIAL (09/21/2016 9:10 AM EST) pH Art 7.36 7.35 - 7.45 [facility] pCO2 Art 48(H) 35 - 45 mmHg [facility] pO2 Art 295(H) 85 - 104 mmHg [facility] HCO3 Art 26.0 20.0 - 26.0 mmol/L [facility] BE Art 0.5 -3.0 - 3.0 mmol/L [facility] Hgb Blood Gas 8.0(L) 11.7 - 15.5 gm/dL [facility] O2HB Art 98.3(H) 94.0 - 97.0 % [facility] COHB Art 1.0 % [facility] Comment: Nonsmokers: 0.5-1.5% COHB Smokers: Variable, but usually less than 10% Toxic: 20-30% COHB Lethal: Greater than 60% COHB METHB Art 0.3 <=1.5 % [facility] Na Whole Blood 135 135 - 145 mmol/L [facility] K Whole Blood 5.4(H) 3.5 - 5.0 mmol/L [facility] Comment: Please note: Patients with WBC >100,000 may have falsely elevated Potassium levels. Contact the Clinical Chemistry Laboratory if there are any questions. ICa Whole Blood 0.93(L) 1.15 - 1.33 mmol/L [facility] Comment: Note: ??Total bilirubin higher than 20 mg/dL may lead to falsely low ionized calcium. CL Whole Blood 102 98 - 107 mmol/L [facility] Gluc Whole Bld 195 65 - 199 mg/dL [facility] Comment:Diabetes: >=200 mg/d L plus symptoms. Lactate WB 1.8 0.5 - 2.2 mmol/L [facility] Temp Art 37.0 Celsius [facility] Blood specimen (specimen) 09/21/2016 9:10 AM EST 09/21/2016 9:10 AM EST Alirio Esparza MD CHEMISTRY ORDERABLE S [facility] [place] [address] * Surgical Pathology Report (09/21/2016 9:09 AM EST) Surgical Pathology Report [id number] ?Location: 3T The signing pathologist has (i) [...] submitted for decalcification: ??(1) ?. (R1) ??ADELITA [facility] 09/21/2016 9:09 AM EST Alirio Esparza MD PATHOLOGY/CYTOLOGY ORDERABLES Performing Organization Address [facility]/[place] [address] * Specimen to Pathology (surgical or derm) (09/21/2016 9:09 AM EST) AP Specimen 09/21/2016 9:09 AM EST 09/21/2016 9:09 AM EST Narrative [facility] - 09/21/2016 9:09 AM EST Specimen requisition ordered. ??Separate Pathology report to follow Alirio Esparza MD PATHOLOGY/CYTOLOGY ORDERABLES Performing Organization Address [facility]/[place] Co de Phone Number [facility] [place] [address] * (ABNORMAL) BLOOD GAS 2 ARTERIAL (09/21/2016 8:50 AM EST) pH Art 7.41 7.35 - 7.45 [facility] pCO2 Art 33(L) 35 - 45 mmHg [facility] pO2 Art 348(H) 85 - 104 mmHg [facility] HCO3 Art 20.6 20.0 - 26.0 mmol/L [facility] BE Art -4.1(L) -3.0 - 3.0 mmol/L [facility] Hgb Blood Gas 9.5(L) 11.7 - 15.5 gm/dL [facility] O2HB Art 98.8(H) 94.0 - 97.0 % [facility] COHB Art 0.3 % [facility] Comment: Nonsmokers: 0.5-1.5% COHB Smokers: Variable, but usually less than 10% Toxic: 20-30% COHB Lethal: Greater than 60% COHB METHB Art 0.3 <=1.5 % [facility] Na Whole Blood 137 135 - 145 mmol/L [facility] K Whole Blood 4.0 3.5 - 5.0 mmol/L [facility] Comment: Please note: Patients with WBC >100,000 may have falsely elevated Potassium levels. Contact the Clinical Chemistry Laboratory if there are any questions. ICa Whole Blood 1.04(L) 1.15 - 1.33 mmol/L [facility] Comment: Note: ??Total bilirubin higher than 20 mg/dL may lead to falsely low ionized calcium. CL Whole Blood 105 98 - 107 mmol/L [facility] Gluc Whole Bld 93 65 - 199 mg/dL [facility] Comment:Diabetes: >=200 mg/d L plus symptoms. Lactate WB 1.0 0.5 - 2.2 mmol/L [facility] Blood specimen (specimen) 09/21/2016 8:50 AM EST 09/21/2016 8:50 AM EST Alirio Esparza MD CHEMISTRY ORDERABLE S [facility] [place] [address] * (ABNORMAL) BLOOD GAS 2 ARTERIAL (09/21/2016 8:18 AM EST) pH Art 7.42 7.35 - 7.45 [facility] pCO2 Art 36 35 - 45 mmHg [facility] pO2 Art 283(H) 85 - 104 mmHg [facility] HCO3 Art 22.8 20.0 - 26.0 mmol/L [facility] BE Art -2.0 -3.0 - 3.0 mmol/L [facility] Hgb Blood Gas 12.6 11.7 - 15.5 gm/dL [facility] O2HB Art 99.0(H) 94.0 - 97.0 % [facility] COHB Art 0.6 % [facility] Comment: Nonsmokers: 0.5-1.5% COHB Smokers: Variable, but usually less than 10% Toxic: 20-30% COHB Lethal: Greater than 60% COHB METHB Art 0.0 <=1.5 % [facility] Na Whole Blood 144 135 - 145 mmol/L [facility] K Whole Blood 4.0 3.5 - 5.0 mmol/L [facility] Comment: Please note: Patients with WBC >100,000 may have falsely elevated Potassium levels. Contact the Clinical Chemistry Laboratory if there are any questions. ICa Whole Blood 1.22 1.15 - 1.33 mmol/L [facility] Comment: Note: ??Total bilirubin higher than 20 mg/dL may lead to falsely low ionized calcium. CL Whole Blood 106 98 - 107 mmol/L [facility] Gluc Whole Bld 102 65 - 199 mg/dL [facility] Comment:Diabetes: >=200 mg/d L plus symptoms. Lactate WB 1.2 0.5 - 2.2 mmol/L [facility] FIO2 Art 95 % [facility] Flow Art 1.1 LPM [facility] PF Ratio Art 298 [facility] Temp Art 35.6 Celsius [facility] Blood specimen (specimen) 09/21/2016 8:18 AM EST 09/21/2016 8:18 AM EST Alirio Esparza MD CHEMISTRY ORDERABLE S [facility] [place] [address] * Prepare RBC (09/21/2016 7:05 AM EST) Dispensed? Yes [facility] Blood specimen (specimen) 09/21/2016 7:05 AM EST 09/21/2016 7:02 AM EST Alirio Esparza MD BLOOD BANK PRODUCT ORDERABLES Performing Organization Address City/[facility]/[place] Co de Phone Number [facility] [place] [address] * POCT Glucose (09/21/2016 6:42 AM EST) POC Glucose 104 65 - 199 mg/dL [facility] Comment: Supplemental ranges: <140 mg/dL before meals <180 mg/dL all other times of the day Blood specimen (specimen) 09/21/2016 6:42 AM EST 09/21/2016 6:42 AM EST Alirio Esparza MD POINT OF CARE TEST ORDERABLES Performing Organization Address [facility]/[place] Co de Phone Number [facility] [place] [address] documented in this encounter Visit Diagnoses Not [...] dose on Wed09/21/16 at 1230, Until Discontinued, Willis teeth, Routine Given 09/25/2016 9:40 AM EST [...] 0600)1600 (Due - Provider: Kendall Martínez [facility]) aspirin chewable tablet 81 mg(Linked Group 1) [...] dose on Wed09/21/16 at 1230, Until Discontinued, Willis teeth, Routine 0900 (Not Given - Provider: [...] Routine documented in this encounter 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
--- OUTSIDE RECORDS SUMMARY | 2024-02-17 14:28 | XMS_ITS | Encounter Summary ---
[place] [address] Care Team Providers Care Silk Conditioner Name Role Phone Ashley Quirogan Cornelius ANURAG Primary Care Provider [phone] Reason for Visit * Reason Onset Date Comments Medication Management 09/14/2016 Encounter Details Date Type Department Care Team (Late st Contact Info) Description 09/14/2016 Telephone [place] [phone] Alexandrea Greenwood, sole stapler welt Management Social History Tobacco Use Types Packs/Day [...] 09/14/2016 9:12 AM EST Message received from admin secretary: Purnima called, asking for clarification on when Prosper wanted her to take the Claritin. She can be reached at home. Per Dr. Borjas: claritin the 09/15/16, 09/16/16, 09/17/16 (the night before neulasta, the night of neulasta injection and the night after). RN instructed pt on Dr. Borjas's claritin directions above. Purnima repeated directions back accurately. Pt will call clinic with further quesitons or concerns. documented in this encounter Plan of Treatment Upcoming Encounters Date Type Department Care Team (Late st Contact Info) Description 02/22/2024 4:15 PM EDT Office Visit Dermatology at [place] [address] [place] [address] Marek Bonilla MD [address] [facility] [place] [address] 06/05/2024 11:30 AM EST Office [place] [address] [facility] [facility] [place] [address] documented as of this encounter Visit Diagnoses Not on filedocumented in this encounter Care Teams Silk Conditioner Relationship Specialty Start Date End Date Deborah Quiroga APRN PCP - General Family Medicine 03/24/16 02/04/23 documented as of this encounter
--- OUTSIDE RECORDS SUMMARY | 2024-02-17 14:28 | XMS_ITS | Encounter Summary ---
Author Organization [facility] [place] [address] Care Team Providers Care Petroleum Refining Firer Name Role Phone Deborah Quiroga APRN Primary Care Provider [phone] Encounter Details Date Type Department Care Team (Late st Contact Info) Description 06/16/2016 Orders Only Hematology [place] [phone] Nitesh Pina Jr., MD [facility] HEMATOLOGY/[place] [address] Cyclical neutropenia Social History Tobacco Use Types [...] PM EDT Office Visit Dermatology at [address] [facility] [place] [phone] Marek Bonilla MD [address] [facility] [place] [address] 06/05/2024 11:30 AM EST Office [place] [phone] Magdalena Peralta MD [facility] [place] [address] documented as of this encounter Visit Diagnoses Diagnosis Cyclical neutropenia Cyclic neutropenia documented in this encounter Care Teams Petroleum Refining Firer Relationship Specialty Start Date End Date Deborah Quiroga APRN PCP - General Family Medicine 03/24/16 02/04/23 documented as of this encounter
--- OUTSIDE RECORDS SUMMARY | 2024-02-17 14:29 | XMS_ITS | Encounter Summary ---
Author Organization [place] [address] Care Team Providers Care Eeg Technician Name Role Phone EitanDanin ANURAG Primary Care Provider [phone] Encounter Details Date Type Department Care Team (Late st Contact Info) Description 01/22/2014 Telephone Cardiology at [address] [phone] Cynthia Arrington LPN Social History Tobacco Use [...] LPN - 01/23/2014 2:39 PM EDT This casualty underwriter did not receive a call back from [...] 4:15 PM EDT Office Visit Dermatology at [place] [address] [place] [address] Marek Bonilla MD [address] [place] [address] 06/05/2024 11:30 AM EST Office [place] [address] Magdalena Peralta MD [facility] [place] [address] documented as of this encounter Visit Diagnoses Not on filedocumented in this encounter Care Teams Eeg Technician Relationship Specialty Start Date End Date Danni Laird APRN [address] [place] [address] PCP - General 01/23/14 11/11/14 documented as of this encounter
--- OUTSIDE RECORDS SUMMARY | 2024-02-17 14:29 | XMS_ITS | Encounter Summary ---
[place] [address] Care Team Providers Care Bin Piler Name Role Phone Mitchell Wilkes MD Primary Care Provider [phone] Reason for Visit * Reason Onset Date Comments Other 01/18/2014 Encounter Details Date Type Department Care Team (Late st Contact Info) Description 01/18/2014 Telephone Cardiology at [address] [phone] Jesusita Garces Other Social History [...] PM EDT Office Visit Dermatology at [address] [address] Marek Bonilla MD [address] [facility] [facility] [place] [address] 06/05/2024 11:30 AM EST Office [place] [address] Magdalena Peralta MD [facility] [place] [address] documented as of this encounter Visit Diagnoses Not on filedocumented in this encounter Care Teams Bin Piler Relationship Specialty Start Date End Date Mitchell Wilkes MD [facility] PCP - General 06/24/10 01/19/14 documented as of this encounter
--- OUTSIDE RECORDS SUMMARY | 2024-02-17 14:29 | XMS_ITS | Encounter Summary ---
Author Organization [facility] Address [facility] [place] [address] Care Team Providers Care Asphalt Spreader Name Role Phone Ashley Quirogan Sylvia ANURAG Primary Care Provider [phone] Reason for Visit * Consultation (Urgent) - Closed Specialty Diagnoses / Procedures Referred By Crispin t Referred To Contact Cardiac Surgery Diagnoses aortic stenosis, consideration for valve replacement Antelmo Burrell MD [address] [place] [address] Alirio Esparza MD [facility] [address] [place] [address] Referral ID Status Reason Start Date Expiration Date V isits Requested Visits Authorized [id number] Closed Connection Center 03/04/2016 03/04/2017 1 1 Encounter Details Date Type Department Care Team (Late st Contact Info) Description 03/24/2016 10:40 AM EDT Office [place] [address] Alirio Esparza MD [facility] [address] [place] [address] Aortic valve stenosis, unspecified etiology Social History [...] This is a patient of Antelmo Burrell [facility] Cardiology. Mrs. Thacker is being sent for [...] 30 minute visit, 20 minutes were spent [id number] with the patient discussing aortic stenosis and valve replacement. documented in this encounter Plan of Treatment Upcoming Encounters Date Type Department Care Team (Mi st Contact Info) Description 02/22/2024 4:15 PM EDT Office Visit Dermatology at [place] [address] [place] [address] Marek Bonilla MD [address] [place] [address] 06/05/2024 11:30 AM EST Office [place] [address] Magdalena Peralta MD [facility] [place] [address] documented as of this encounter Visit Diagnoses Diagnosis Aortic valve stenosis, unspecified etiology documented in this encounter Care Teams Asphalt Spreader Relationship Specialty Start Date End Date Deborah Quiroga APRN PCP - General Family Medicine 03/24/16 02/04/23 documented as of this encounter
--- OUTSIDE RECORDS SUMMARY | 2024-02-17 14:29 | XMS_ITS | Encounter Summary ---
Author Organization [facility] Address [facility] [place] [address] Care Team Providers Care Photogeologist Name Role Phone Danni Laird APRN Primary Care Provider [phone] Encounter Details Date Type Department Care Team (Late st Contact Info) Description 01/23/2014 Orders Only Cardiology at [address] [phone] Lee Kincaid MD [facility] [place] [address] SOB (shortness of breath) (Primary Dx) Social [...] PM EDT Office Visit Dermatology at [address] [place] [phone] Marek Bonilla MD [address] [facility] DERMATOLOGY [place], [place] [phone] 06/05/2024 11:30 AM EST Office [place] [phone] Magdalena Peralta MD [facility] [place] [address] documented as of this encounter Results * Echocardiogram Transthoracic(Leb) (01/23/2014 3:17 PM EDT) EF 50 HEART[facility] SYSTEM Anatomical Region Laterality Modality Other 01/23/2014 Narrative 01/23/2014 4:35 PM EDT Procedure: ? Transthoracic Echocardiogram Patient: ? ANDREW ECHOLS M ?(Age): 1955(58) Med Rec#: ?[id number] ? Sex: ?F ? [facility] Loc: [facility] ? Ht / Wt: ??158(cm)/93(kg) Pt. Loc: ? Adult Floor ?BSA: ?2.02 Study Date: ?01/23/2014 ? Pt. Type: Inpatient Tape: ? Referring: Lee Kincaid ([id number]) Referring: ANNALISA Housekeeping Department Worker: Miguel Beverly Diagnosis:CPT Code(s): ??Echo Full (47659), ??Spectral Doppler (02093), Color Doppler (93945), Indication(s): ??Aortic stenosis Rhythm: Sinus HR ?BP [...] ? Mid-Inferior ?Hypokinetic ? Mid-Inferoseptal ?Hypokinetic ? [place]-Septal ? Hypokinetic ? [place]-Anterior ? Hypokinetic ? [place]-Lateral ?Hypokinetic ? [place]-Inferior ? Hypokinetic ? [place]-Tip ?Hypokinetic ? Chambers ?Value ?Units (Range) ? [...] 01/23/2014 16:34:37 Images reviewed and interpretation verified [facility] Cardiac Ultrasound Laboratory Procedure Note Lee Kincaid MD - 01/23/2014 Procedure: Transthoracic Echocardiogram Patient: ANDREW Mejias (Age): 1955(58) Med Rec#: [id number] Sex: F [place] Loc: [facility] Ht / Wt: 158(cm)/93(kg) Pt. Loc: Adult Floor BSA: 2.02 Study Date: 01/23/2014 Pt. Type: Inpatient Tape: Referring: Lee Kincaid ([id number]) Referring: ANNALISA Housekeeping Department Worker: Miguel Beverly Diagnosis:CPT Code(s): Echo Full (11841), Spectral Doppler (29448), Color Doppler (56308), Indication(s): Aortic stenosis Rhythm: Sinus HR BP [...] Hypokinetic Mid-Posterolateral Hypokinetic Mid-Inferior Hypokinetic Mid-Inferoseptal Hypokinetic [place]-Septal Hypokinetic [place]-Anterior Hypokinetic [place]-Lateral Hypokinetic [place]-Inferior Hypokinetic [place]-Tip Hypokinetic Chambers Value Units (Range) IVSd 2D [...] 01/23/2014 16:34:37 Images reviewed and interpretation verified [facility] Cardiac Ultrasound Laboratory Lee Kincaid MD ECHO ORDERABLES documented in this encounter Visit Diagnoses Diagnosis SOB (shortness of breath)- Primary Shortness of breath documented in this encounter Care Teams Photogeologist Relationship Specialty Start Date End Date Danni Laird APRN [address] [facility] [place] [address] PCP - General 01/23/14 11/11/14 documented as of this encounter
--- OUTSIDE RECORDS SUMMARY | 2024-02-17 14:29 | XMS_ITS | Encounter Summary ---
Author Organization [facility] Address [facility] [place] [address] Care Team Providers Care Importer Exporter Name Role Phone Mitchell Wilkes MD Primary Care Provider [phone] Encounter Details Date Type Department Care Team (Late st Contact Info) Description 01/19/2014 Orders Only Cardiology at [address] [address] Chele Randolph, PA [facility] [place] [address] Cardiomyopathy (Primary Dx) Social History Tobacco Use [...] 4:15 PM EDT Office Visit Dermatology at [place] [address] [place] [address] Marek Bonilla MD [address] [facility] [place] [address] 06/05/2024 11:30 AM EST Office [place] [address] Magdalena Peralta MD [facility] [place] [address] documented as of this encounter Procedures Procedure [...] cardiomyopathies documented in this encounter Care Teams Importer Exporter Relationship Specialty Start Date End Date Mitchell Wilkes MD [facility] PCP - General 06/24/10 01/19/14 documented as of this encounter
--- OUTSIDE RECORDS SUMMARY | 2024-02-17 14:29 | XMS_ITS | Encounter Summary ---
Author Organization [facility] [place] [address] Care Team Providers Care Tool Dispatcher Name Role Phone EitanDanni ANURAG Primary Care Provider Encounter Details Date Type Department Care Team (Latest Contact Info) Description 01/23/2014 7:45 AM EDT - 01/23/2014 5:50 PM EDT Hospital Encounter [place] [address] Alan Jacobson MD [facility] [place] [address] Cardiomyopathy; SOB (shortness of breath) Discharge Disposition: [...] by your doctor, do not take any itxi-qgq-ompcpkl medicines or herbal preparations without first discussing this with your doctor or pharmacist. There is the possibility of side effect and interactions when these are combined. Follow up Care Who to Call with Questions or Problems If there are any questions or problems that you think might be related to your cardiac cath or angioplasty, contact the chip mixing machine operator button inspector by calling [facility] at . documented in this encounter [...] 4:15 PM EDT Office Visit Dermatology at [place] [address] [facility] [place] [address] Marek Bonilla MD [address] [facility] [place] [address] 06/05/2024 11:30 AM EST Office [place] [address] Magdalena Peralta MD [facility] [place] [address] documented as of this encounter Procedures Procedure [...] ANDREW ONESIMO M ?(Age): 1955(58) Med Rec#: ?[id number] ? Sex: ?F ? [place] ? Ht / Wt: ??158(cm)/93(kg) Pt. Loc: ? Adult Floor ?BSA: ?2.02 Study Date: ?01/23/2014 ? Pt. Type: Inpatient Tape: ? Referring: Lee Kincaid ([id number]) Referring: ANNALISA Dental Surgery Doctor: Miguel Beverly Diagnosis:CPT Code(s): ??Echo Full (58323), ??Spectral Doppler (06116), Color Doppler (07963), Indication(s): ??Aortic stenosis Rhythm: Sinus HR ?BP [...] ? Mid-Inferior ?Hypokinetic ? Mid-Inferoseptal ?Hypokinetic ? [place]-Septal ? Hypokinetic ? [place]-Anterior ? Hypokinetic ? [place]-Lateral ?Hypokinetic ? [place]-Inferior ? Hypokinetic ? [place]-Tip ?Hypokinetic ? Chambers ?Value ?Units (Range) ? [...] 01/23/2014 16:34:37 Images reviewed and interpretation verified [facility] Cardiac Ultrasound Laboratory Procedure Note Lee Kincaid MD - 01/23/2014 Procedure: Transthoracic Echocardiogram Patient: ANDREW Mejias DOB(Age): 1955(58) Med Rec#: [id number] Sex: F [place] Loc: [facility] Ht / Wt: 158(cm)/93(kg) Pt. Loc: Adult Floor BSA: 2.02 Study Date: 01/23/2014 Pt. Type: Inpatient Tape: Referring: Lee Kincaid ([id number]) Referring: AUSTINELIZABETHGerman Dental Surgery Doctor: Miguel Beverly Diagnosis:CPT Code(s): Echo Full (36234), Spectral Doppler (37383), Color Doppler (96949), Indication(s): Aortic stenosis Rhythm: Sinus HR BP [...] Hypokinetic Mid-Posterolateral Hypokinetic Mid-Inferior Hypokinetic Mid-Inferoseptal Hypokinetic [place]-Septal Hypokinetic [place]-Anterior Hypokinetic [place]-Lateral Hypokinetic [place]-Inferior Hypokinetic [place]-Tip Hypokinetic Chambers Value Units (Range) IVSd 2D [...] 01/23/2014 16:34:37 Images reviewed and interpretation verified [facility] Cardiac Ultrasound Laboratory Lee Kincaid MD [...] RN) documented in this encounter Care Teams Tool Dispatcher Relationship Specialty Start Date End Date Danni Laird APRN [address] [place] [address] PCP - General 01/23/14 11/11/14 documented as of this encounter
--- OUTSIDE RECORDS SUMMARY | 2024-02-17 14:29 | XMS_ITS | Encounter Summary ---
[place] [address] Care Team Providers Care Business Banking Manager Name Role Phone Ashley Quirogan Cornelius ANURAG Primary Care Provider [phone] Encounter Details Date Type Department Care Team (Late st Contact Info) Description 03/24/2016 Notes Only [place] [address] Alfa Lua Social History Tobacco Use Types [...] assessments completed: Wadsworth Score: 6/6 IADL: 7/7 Graduate Assistant Athletic Trainer Strength Trials: 18.4, 15.0, 16.8 (right hand dominant) 5 meter walk test in seconds x3: 4.98, 4.88, 4.45 KCCQol: 98% Alfa Lua documented in this encounter Plan of Treatment Upcoming Encounters Date Type Department Care Team (Late st Contact Info) Description 02/22/2024 4:15 PM EDT Office Visit Dermatology at [place] [address] [place] [address] Marek Bonilla MD [address] [facility] [place] [place] [address] 06/05/2024 11:30 AM EST Office Visit [place] [address] Magdalena Peralta MD [facility] [place] [address] documented as of this encounter Visit Diagnoses Not on filedocumented in this encounter Care Teams Business Banking Manager Relationship Specialty Start Date End Date Deborah Quiroga APRN PCP - General Family Medicine 03/24/16 02/04/23 documented as of this encounter
--- OUTSIDE RECORDS SUMMARY | 2024-02-17 14:29 | XMS_ITS | Encounter Summary ---
Author Organization [facility] Address [facility] [place] [address] Care Team Providers Care Engineering Clerk Name Role Phone Ashley Quirogazac Shields APRN Primary Care Provider [phone] Encounter Details Date Type Department Care Team (Late st Contact Info) Description 05/19/2016 10:00 AM EDT Office [place] [address] Alirio Esparza MD [facility] [place] [address] Nonrheumatic aortic valve stenosis Social History Tobacco [...] PM EDT Office Visit Dermatology at [address] [place] [address] [address] Marek Bonilla MD [address] [facility] [place] [address] 06/05/2024 11:30 AM EST Office [place] [address] Magdalena Peralta MD [facility] [place] [address] documented as of this encounter Results * [...] (Bezet) 448 ms MUSE SYSTEM Calculated P Pride 37 degrees MUSE SYSTEM Calculated R Pride 31 degrees MUSE SYSTEM Calculated T Pride 25 degrees MUSE SYSTEM INTERPRETATION Normal sinus rhythm Normal ECG No previous ECGs available Confirmed by MD Becca, Deangelo ([id number]) on 05/19/2016 5:23:33 PM MUSE SYSTEM 05/19/2016 11:4 3 AM EDT 05/19/2016 5:23 PM EDT Alirio Esparza MD ECG ORDERABLES MUSE SYSTEM * Basic Metabolic Panel (non-fasting) (05/19/2016 11:32 AM EDT) Glucose Lvl 86 65 - 199 mg/dL [facility] Comment:Diabetes: >=200 mg/d L plus symptoms BUN 13 8 - 18 mg/dL [facility] Creatinine 0.95 0.70 - 1.20 mg/dL [facility] Comment: Please note that the pediatric reference intervals supplied above were not validated at [facility]. Results from pediatric patients should be interpreted in conjunction to the patient's age, height and muscle mass. Sodium 140 135 - 145 mmol/L [facility] Potassium 4.3 3.5 - 5.0 mmol/L [facility] Comment: Please note: ??Patients with WBC >100,000 may have falsely elevated Potassium levels. ??For accurate Potassium quantification in these patients send serum separator tube (gold top) for subsequent determinations. ??Contact the Clinical Chemistry Laboratory if there are any questions. Chloride 101 98 - 107 mmol/L [facility] CO2 27 22 - 31 mmol/L [facility] Anion Gap 12 5 - 15 mmol/L [facility] Calcium 10.1 8.5 - 10.5 mg/dL [facility] Estimated GFR 60 >=60 [facility] Comment: This estimated [...] the following links into your internet browser. [email or web address]/DHnkdep [email or web address]/DHMCnkf Blood specimen (specimen) 05/19/2016 11:32 AM EDT 05/19/2016 11:41 AM EDT Narrative Resulting Agency Comment Spec In Lab Alirio Esparza MD CHEMISTRY ORDERABLE S [facility] [place] [place] [address] documented in this encounter Visit Diagnoses Diagnosis Nonrheumatic aortic valve stenosis Aortic valve disorders Nonrheumatic aortic valve stenosis Aortic valve disorders documented in this encounter Care Teams Engineering Clerk Relationship Specialty Start Date End Date Deborah Quiroga APRN PCP - General Family Medicine 03/24/16 02/04/23 documented as of this encounter
--- OUTSIDE RECORDS SUMMARY | 2024-02-17 14:29 | XMS_ITS | Encounter Summary ---
Author Organization [facility] [place] [address] Care Team Providers Care Coremaker Name Role Phone EitanMagnusDanni ANURAG Primary Care Provider Encounter Details Date Type Department Care Team (Late st Contact Info) Description 01/23/2014 9:25 AM EDT - 01/23/2014 10:25 AM EDT [place] [address] Alan Jacobson MD [facility] [address] CARDIAC CATHETERIZATION Social History Tobacco Use Types [...] by your doctor, do not take any kzkr-vic-fkgijco medicines or herbal preparations without first discussing this with your doctor or pharmacist. There is the possibility of side effect and interactions when these are combined. Follow up Care Who to Call with Questions or Problems If there are any questions or problems that you think might be related to your cardiac cath or angioplasty, contact the supervisor grading investor relations specialist by calling [facility] at . documented in this encounter Medications [...] 4:15 PM EDT Office Visit Dermatology at [place] [address] [place] [address] Marek Bonilla MD [address] [facility] [place] [address] 06/05/2024 11:30 AM EST Office [place] [address] Magdalena Peralta MD [facility] [place] [address] documented as of this encounter Procedures Procedure Name Priority Date/Time Associated Diagnosis Comments ECHOCARDIOGRAM TRANSTHORACIC Routine 01/23/2014 3:17 PM EDT SOB (shortness of breath) documented in this encounter Results * Echocardiogram Transthoracic(Leb) (01/23/2014 3:17 PM EDT) Pathologist [employer] EF 50 HEARTLAB SYSTEM Anatomical Region Laterality Modality Other 01/23/2014 Narrative 01/23/2014 4:35 PM EDT Procedure: ? Transthoracic Echocardiogram Patient: ? ANDREW ECHOLS M ?(Age): 1955(58) Med Rec#: ?[id number] ? Sex: ?F ? Site Loc: ?[facility] ? Ht / Wt: ??158(cm)/93(kg) Pt. Loc: ? Adult Floor ?BSA: ?2.02 Study Date: ?01/23/2014 ? Pt. Type: Inpatient Tape: ? Referring: Lee Kincaid ([id number]) Referring: ANNALISA Vat Washer: Miguel Beverly Diagnosis:CPT Code(s): ??Echo Full (89542), ??Spectral Doppler (86261), Color Doppler (71731), Indication(s): ??Aortic stenosis Rhythm: Sinus HR ?BP [...] ? Mid-Inferior ?Hypokinetic ? Mid-Inferoseptal ?Hypokinetic ? [place]-Septal ? Hypokinetic ? [place]-Anterior ? Hypokinetic ? [place]-Lateral ?Hypokinetic ? [place]-Inferior ? Hypokinetic ? [place]-Tip ?Hypokinetic ? Chambers ?Value ?Units (Range) ? [...] 16:34:37 Images reviewed and interpretation verified [facility] Cardiac Ultrasound Laboratory Procedure Note Lee Kincaid MD - 01/23/2014 Procedure: Transthoracic Echocardiogram Patient: ANDREW Mejias (Age): 1955(58) Med Rec#: [id number] Sex: F Site Loc: [facility] Ht / Wt: 158(cm)/93(kg) Pt. Loc: Adult Floor BSA: 2.02 Study Date: 01/23/2014 Pt. Type: Inpatient Tape: Referring: Lee Kincaid ([id number]) Referring: ANNALISA Vat Washer: Miguel Beverly Diagnosis:CPT Code(s): Echo Full (74594), Spectral Doppler (68904), Color Doppler (79876), Indication(s): Aortic stenosis Rhythm: Sinus HR BP [...] Hypokinetic Mid-Posterolateral Hypokinetic Mid-Inferior Hypokinetic Mid-Inferoseptal Hypokinetic [place]-Septal Hypokinetic [place]-Anterior Hypokinetic [place]-Lateral Hypokinetic [place]-Inferior Hypokinetic [place]-Tip Hypokinetic Chambers Value Units (Range) IVSd 2D [...] 16:34:37 Images reviewed and interpretation verified [facility] Cardiac Ultrasound Laboratory Lee Kincaid MD [...] RN) documented in this encounter Care Teams Coremaker Relationship Specialty Start Date End Date Danni Laird APRN [address] [place] [address] PCP - General 01/23/14 11/11/14 documented as of this encounter
--- OUTSIDE RECORDS SUMMARY | 2024-02-17 14:29 | XMS_ITS | Encounter Summary ---
[place] [address] Care Team Providers Care Outside Sales Manager Name Role Phone Jerel Sofia Garcia APRN Primary Care Provider [phone] Encounter Details Date Type Department Care Team (Late st Contact Info) Description 11/12/2014 8:10 AM EDT - 11/12/2014 11:59 PM EDT Hospital [place] [phone] CLINIC, DR ABE Burrell, Antelmo Porter MD [address] [place] [address] Discharge Disposition: Home Social History Tobacco Use [...] 4:15 PM EDT Office Visit Dermatology at [place] [address] [place] [address] Marek Bonilla MD [address] [facility] [place] [address] 06/05/2024 11:30 AM EST Office [place] [address] Magdalena Peralta MD [facility] [place] [address] documented as of this encounter Procedures Procedure [...] mLs documented in this encounter Care Teams Outside Sales Manager Relationship Specialty Start Date End Date Sofia Beltrán APRN [address] [place] [address] PCP - General 11/12/14 03/23/16 documented as of this encounter
--- OUTSIDE RECORDS SUMMARY | 2024-02-17 14:29 | XMS_ITS | Encounter Summary ---
Author Organization [facility] [place] [address] Care Team Providers Care Cnc Manufacturing Engineer Name Role Phone Deborah Quiroga APRN Primary Care Provider [phone] Encounter Details Date Type Department Care Team (Late st Contact Info) Description 05/22/2016 Orders Only Cardiology at [address] [address] Chele Randolph, EKATERINA [facility] [place] [address] Aortic valve stenosis, unspecified etiology Social History [...] 4:15 PM EDT Office Visit Dermatology at [address] [place] [address] Marek Bonilla MD [address] [facility] [place] [address] 06/05/2024 11:30 AM EST Office [place] [address] Magdalena Peralta MD [facility] [place] [address] documented as of this encounter Procedures Procedure Name Priority Date/Time Associated Diagnosis Comments CARDIAC CATHETERIZATION Routine 06/03/20 16 9:13 AM EDT Aortic valve stenosis, unspecified etiology documented in this encounter Results * CARDIAC CATHETERIZATION (06/03/2016 9:13 AM EDT) Anatomical Region Laterality Modality Other Narrative 06/03/2016 10:13 AM EDT ?[facility] ? Cardiac Catheterization/Intervention Report ? Patient Name: Purnima Thacker M. ? Procedure Date: 06/03/2016 ? A #: [id number] ? Primary Physician: Fanny, Nitesh E ? Case #: [id number] ? File Name: [id number] ? Catheterization Order Number: [id number] ? [facility] ? Final Report [place], [place] ? Patient Name: ? Purnima M. Kirstie ? ID#: ?[id number] ? : ?1955 ? Procedure Date: ? June 03, 2016 ? Case #: ? [id number] ? Room: ? 1 ? Case Physician: [...] no symptom, no angina (w/i 14 days). Citizen Of [place] ?Cardiovascular Society angina class was 0. This [...] Procedure Note Nitesh Escobedo MD - 09/21/2016 [facility] Cardiac Catheterization/Intervention Report Patient Name: Purnima Thacker Procedure Date: 06/03/2016 A #: [id number] Primary Physician: Nitesh Escobedo Case #: [id number] File Name: [id number] Catheterization Order Number: [id number] [facility] FinalReport [place], [place] Patient Name: Purnima Thacker ID#:[id number] :1955 Procedure Date: June 03, 2016 Case [...] with: no symptom, no angina (w/i 14 days).Citizen Of [place] Cardiovascular Society angina class was 0. This [...] etiology documented in this encounter Care Teams Cnc Manufacturing Engineer Relationship Specialty Start Date End Date Deborah Quiroga, DIRECTOR BUSINESS DEVELOPMENT PCP - General Family Medicine 03/24/16 02/04/23 documented as of this encounter
--- OUTSIDE RECORDS SUMMARY | 2024-02-17 14:29 | XMS_ITS | Encounter Summary ---
[place] [address] Care Team Providers Care Electronic Industrial Controls Mechanic Name Role Phone Ashley Quirogazac Shields APRN Primary Care Provider [phone] Encounter Details Date Type Department Care Team (Latest Contact Info) Description 05/19/2016 11:20 AM EDT [place] [address] Nonrheumatic aortic valve stenosis Social [...] PM EDT Office Visit Dermatology at [address] [place] [address] Marek Bonilla MD [address] [place] [address] 06/05/2024 11:30 AM EST Office [place] [address] Magdalena Peralta MD [facility] [place] [address] documented as of this encounter Procedures Procedure Name Priority Date/Time Associated Diagnosis Comments SCAN, PERIPHERAL BLOOD Routine 05/19/2016 11:32 AM EDT HEMOGRAM Routine 05/19/2016 11:32 AM EDT Nonrheumatic aortic valve stenosis DIFFERENTIAL, AUTOMATED Routine 05/19/2016 11:32 AM EDT Nonrheumatic aortic valve stenosis TYPE AND SCREEN, SDP (FUTURE SURGERY, [facility] SAME DAY PROGRAM ONLY) Routine 05/19/2016 11:32 [...] (05/19/2016 11:32 AM EDT) Plat Estimate Normal [facility] RBC Morphology Normal [facility] Blood specimen (specimen) 05/19/2016 11:32 AM EDT 05/19/2016 11:41 AM EDT Narrative Resulting Agency Comment Spec In Lab Alirio Esparza MD HEMATOLOGY ORDERABL ES [facility] [place] [address] * (ABNORMAL) Differential, Automated (05/19/2016 11:32 AM EDT) Neutrophils % 25.9 % [facility] Neutr Abs (ANC) 0.42(Crit ical) 1.70 - 6.10 x10(3)/mc L [facility] Comment: This result has been called to DR ALIRIO ESPARZA by Alivia Ibarra on 05 19 2016 at 1228, and has been read back. Lymphocytes % 59.9 % [facility] Lymphocytes Abs 1.0 0.9 - 3.2 x10(3)/[facility] Monocytes % 13.0 % [facility] Monocyte Abs 0.2(L) 0.3 - 0.9 x10(3)/[facility] Eosinophils % 0.6 % [facility] Eosinophils Abs 0.0 0.0 - 0.4 x10(3)/[facility] Basophils % 0.6 % [facility] Basophils Abs 0.0 0.0 - 0.1 x10(3)/[facility] Immature Gran % 0.00 % [facility] Comment: Immature granulocytes(IG's)percentage and absolute count will include metamyelocytes, myelocytes, and promyelocytes. Blood smears from CBCs yielding IG's will be scanned manually for concordance. If this scan disagrees with the automated IG or if promyelocytes are noted, a manual differential will be performed. Amanda Gran Abs 0.00 0.00 - 0.04 x10(3)/[facility] Blood specimen (specimen) 05/19/2016 11:32 AM EDT 05/19/2016 11:41 AM EDT Narrative Resulting Agency Comment Spec In Lab Alirio Esparza MD HEMATOLOGY ORDERABL ES [facility] [place] [address] * (ABNORMAL) Hemogram (05/19/2016 11:32 AM EDT) WBC 1.6(Critic al) 4.0 - 9.5 x10(3)/[facility] Comment: This result has been called to DR ALIRIO ESPARZA by Alivia Ibarra on 05 19 2016 at 1228, and has been read back. RBC 3.96(L) 4.00 - 5.21 x10(6)/mc L [facility] Hemoglobin 12.5 11.7 - 15.5 gm/dL [facility] Hematocrit 37.9 35.7 - 45.8 % [facility] MCV 95.7(H) 82.6 - 94.4 fL [facility] MCH 31.6 27.1 - 32.0 pg [facility] MCHC 33.0 31.7 - 35.0 gm/dL [facility] Platelets 227 145 - 357 x10(3)/mc L [facility] RDWSD 40.5 37.0 - 46.0 [facility] RDWCV 11.5 11.5 - 14.1 % [facility] MPV 8.4 7.6 - 12.9 [facility] nRBC % Auto 0.0 % [facility] nRBC Abs Auto 0.000 0.000 - 0.000 x10(3)/ L [facility] Blood specimen (specimen) 05/19/2016 11:32 AM EDT 05/19/2016 11:41 AM EDT Narrative Resulting Agency Comment Spec In Lab Alirio Esparza MD HEMATOLOGY ORDERABL ES Performing Organization Address City/State/[facility] Co de Phone Number [facility] [place] [address] * Antibody screen (05/19/2016 11:32 AM EDT) Ab Screen Interp Negative [facility] Expires at [id number] on: 07/03/2016 [facility] Comment: Corrected from 06/11/16 12:00 [Unknown] on 06/09/16 05:51 by Bethanie Tomlinson I.. Corrected from 07/03/16 12:00 [Unknown] on 05/21/16 06:00 by Shelia Barrera Blood specimen (specimen) 05/19/2016 11:32 AM EDT 05/19/2016 11:35 AM EDT Narrative Resulting Agency Comment Spec In Lab Alirio Esparza MD BLOOD BANK LAB [place] [place] Performing Organization Address City/[facility]/ZIP Co de Phone Number [facility] [place] [address] * ABO/Rh Typing (05/19/2016 11:32 AM EDT) ABORH Type B Pos [facility] Blood specimen (specimen) 05/19/2016 11:32 AM EDT 05/19/2016 11:35 AM EDT Narrative Resulting Agency Comment Spec In Lab Alirio Esparza MD BLOOD BANK LAB [place] Performing Organization Address [facility] Co de Phone Number [facility] [place] [address] * Basic Metabolic Panel (non-fasting) (05/19/2016 11:32 AM EDT) [facility] Signature Glucose Lvl 86 65 - 199 mg/dL [facility] Comment:Diabetes: >=200 mg/d L plus symptoms BUN 13 8 - 18 mg/dL [facility] Creatinine 0.95 0.70 - 1.20 mg/dL [facility] Comment: Please note that the pediatric reference intervals supplied above were not validated at [facility]. Results from pediatric patients should be interpreted in conjunction to the patient's age, height and muscle mass. Sodium 140 135 - 145 mmol/L [facility] Potassium 4.3 3.5 - 5.0 mmol/L [facility] [...] LAB[facility]ATORY CO2 27 22 - 31 mmol/L [facility] Anion Gap 12 5 - 15 mmol/L [facility] Calcium 10.1 8.5 - 10.5 mg/dL [facility] Estimated GFR 60 >=60 [facility] Comment: This estimated GFR (eGFR) [...] the following links into your internet browser. [email or web address] Blood specimen (specimen) 05/19/2016 11:32 AM EDT 05/19/2016 11:41 AM EDT Narrative Resulting Agency Comment Spec In Lab Alirio Esparza MD CHEMISTRY ORDERABLE S [facility] [place] [address] documented in this encounter Visit Diagnoses Diagnosis Nonrheumatic aortic valve stenosis Aortic valve disorders documented in this encounter Care Teams Electronic Industrial Controls Mechanic Relationship Specialty Start Date End Date Deborah Quiroga APRN PCP - General Family Medicine 03/24/16 02/04/23 documented as of this encounter
--- OUTSIDE RECORDS SUMMARY | 2024-02-17 14:29 | XMS_ITS | Encounter Summary ---
Author Organization [facility] Address [facility] [place] [address] Care Team Providers Care Brand Executive Name Role Phone Deborah Quiroga APRN Primary Care Provider [phone] Encounter Details Date Type Department Care Team (Latest Contact Info) Description 05/19/2016 11:52 AM EDT - 05/19/2016 11:59 PM EDT Hospital Encounter XRay at [address] [place] [address] Alirio Esparza MD [facility] [place] [address] Nonrheumatic aortic valve stenosis Discharge Disposition: Home [...] 4:15 PM EDT Office Visit Dermatology at [place] [address] [place] [address] Marek Bonilla MD [address] [facility] [place] [address] 06/05/2024 11:30 AM EST Office [place] [address] Magdalena Peralta MD [facility] [place] [address] documented as of this encounter Procedures Procedure [...] disorders documented in this encounter Care Teams Brand Executive Relationship Specialty Start Date End Date Deborah Quiroga, CHANGE MANAGEMENT ADMINISTRATOR PCP - General Family Medicine 03/24/16 02/04/23 documented as of this encounter
--- OUTSIDE RECORDS SUMMARY | 2024-02-17 14:29 | XMS_ITS | Encounter Summary ---
Author Organization [facility] Address [facility] [place] [address] Care Team Providers Care Stamp Redemption Clerk Name Role Phone Junaid Deborah Shields APRN Primary Care Provider [phone] Encounter Details Date Type Department Care Team (Latest Contact Info) Description 05/19/2016 11:00 AM EDT Clinical [place] [phone] Nonrheumatic aortic valve stenosis Social History Tobacco [...] 4:15 PM EDT Office Visit Dermatology at [place] [address] [place] [address] Marek Bonilla MD [address] [facility] [place] [address] 06/05/2024 11:30 AM EST Office [place] [address] Magdalena Peralta MD [facility] [place] [address] documented as of this encounter Procedures Procedure [...] (Bezet) 448 ms MUSE SYSTEM Calculated P Brighton 37 degrees MUSE SYSTEM Calculated R Brighton 31 degrees MUSE SYSTEM Calculated T Brighton 25 degrees MUSE SYSTEM INTERPRETATION Normal sinus rhythm Normal ECG No previous ECGs available Confirmed by MD Becca, Deangelo ([id number]) on 05/19/2016 5:23:33 PM MUSE SYSTEM 05/19/2016 11:4 3 AM EDT 05/19/2016 5:23 PM EDT Alirio Esparza MD ECG ORDERABLES MUSE SYSTEM documented in this encounter Visit Diagnoses Diagnosis Nonrheumatic aortic valve stenosis Aortic valve disorders documented in this encounter Care Teams Stamp Redemption Clerk Relationship Specialty Start Date End Date Deborah Quiroga, PROCESS IMPROVEMENT MANAGER PCP - General Family Medicine 03/24/16 02/04/23 documented as of this encounter
--- OUTSIDE RECORDS SUMMARY | 2024-02-22 14:10 | XMS_ITS | Encounter Summary ---
Author Organization [facility] Address [address] [place] [address] Care Team Providers Care It Systems Engineer Name Role Phone Ashley Chavez Primary Care Provider Encounter Details Date Type Department Care Team (Late st Contact Info) Description 10/30/2022 Lab Requisition [facility] Pathology & Laboratory Medicine - [address] [address] Outr Resulting Lab, Provider Social History Tobacco [...] Stranded) <12.3 <30.0 IU/mL 11/03/2022 13:08 EDT [facility] Comment: ? Negative: ??<30.0 IU/mL ? Borderline Positive: ??30.0 - 75.0 IU/mL ? Positive: ??>75.0 IU/mL Results were obtained with the [employer] QUANTA Lite dsDNA SC DOMO assay on the [employer] DSX. Blood VENOUS BLOOD / Unknown 10/29/2022 14:00 EDT 10/30/2022 19:27 EDT Provider Outr Resulting Lab IMMUNOLOGY A ND SEROLOGY ORDERABLES Performing Organization Address [facility] de Phone Number [facility] [address] [place] [address] * SM (MORENO) ANTIBODY (10/29/2022 14:00 EDT) [facility] SM (Moreno) Antibody 18.5 <20.0 Units 11/03/2022 14:26 EDT [facility] Comment: ? Negative: <20.0 [...] A ND SEROLOGY ORDERABLES Performing Organization Address [facility] de Phone Number [facility] [address] [place] [address] documented in this encounter Visit Diagnoses Not on filedocumented in this encounter Care Teams It Systems Engineer Relationship Specialty Start Date End Date Ashley Chavez ARNP [address] [place] [address] PCP - General 07/11/10 documented as of this encounter
--- OUTSIDE RECORDS SUMMARY | 2024-02-22 14:10 | XMS_ITS | Encounter Summary ---
Author Organization [facility] Address [address] [place] [address] Care Team Providers Care Supervisor Precision Optical Elements Name Role Phone Scott, Ashley WILLIAM Primary Care Provider [phone] Encounter Details Date Type Department Care Team (Late st Contact Info) Description 12/23/2016 Results Only [facility] [phone] Deborah Quiroga, CREW MESS ATTENDANT [address] [place] [phone] Social History Tobacco Use Types Packs/Day Years [...] ? 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 Accession #: ? [id number] ? : ? 1955 (Age: 61) ??F ?Collect Date: ? 12/23/2016 ? Location: ? [facility] ? Receive Date: ? 12/25/2016 ? Provider: DEBORAH QUIROGA SUPERINTENDENT JOB Copy to: ? Final Report SPECIMEN ADEQUACY ? Satisfactory for Evaluation - transformation zone component present GENERAL CATEGORIZATION ? Negative for Intraepithelial Lesion or Malignancy ?? Last Menstrual Period: years Specimen/Source: ??Pap Test, Cervix, ThinPrep Imaging System with manual evaluation Document reviewed and electronically signed by: ? Monica Cason [facility]) ? Report ??Date: 01/06/2017 09:11 HPV with Pap Test ? Date Ordered: ? 01/06/2017 ? Status: ?? Signed Out ?Date Complete: ? 01/07/2017 ? By: ??System Interface ? Date Reported: ? 01/07/2017 ? Interpretation RESULT: Negative for HPV. No E6 or E7 mRNA is detected from HPV types 16,18,31,33,35, 39,45,51,52,56,58, 59,66, and 68 by flatbed stitcher mediated amplification. Comments Document reviewed and electronically signed by: ? System Interface ? Report date: 01/07/2017 By the signature above, the attending physician certifies that he/she has personally conducted a gross and/or microscopic examination of the described specimens and rendered or confirmed the above diagnosis. End of Report [facility] 12/23/2016 12/25/2016 Deborah Quiroga CREW MESS ATTENDANT PATHOLOGY ORDERABLES [facility] [address] [place] [address] documented in this encounter Visit Diagnoses Not on filedocumented in this encounter Care Teams Supervisor Precision Optical Elements Relationship Specialty Start Date End Date Ashley Chavez ARNP [address] [place] [address] PCP - General 07/11/10 documented as of this encounter
--- OUTSIDE RECORDS SUMMARY | 2024-02-22 14:10 | XMS_ITS | Encounter Summary ---
Author Organization [facility] Address [address] [place] [address] Care Team Providers Care Line Clearance Foreman Name Role Phone Unavailable Primary Care Provider Unavailabl e Encounter Details Date Type Department Care Team (Late st Contact Info) Description 07/08/2010 10:55 EST - 07/08/2010 10:56 EST Hospital Encounter [facility] - Other [address] [place] [address] Ashley Chavez, WILLIAM [address] [place] [address] Discharge Disposition: Home or Self Care Social [...]
--- OUTSIDE RECORDS SUMMARY | 2024-02-22 14:10 | XMS_ITS | Encounter Summary ---
Author Organization [facility] Address [address] [place] [address] Care Team Providers Care Patent Prosecution Paralegal Name Role Phone Unavailable Primary Care Provider Unavailabl e Encounter Details Date Type Department Care Team (Late st Contact Info) Description 03/24/2007 Results Only [facility] Non-Invasive Card[facility] [address] [place], [place] [address] Ashley Chavez ARNP [address] [place] [address] Social History Tobacco Use Types Packs/Day Years [...] ? 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 Accession #: ? [id number] : ? 1955 (Age: 51) ??F ?Collect Date: ? 03/24/2007 Location: ? [facility] ? Receive Date: ? 03/28/2007 Provider: ?ASHLEY THOMAS Copy to: ? Specimen/Source: ?ThinPrep Pap Test, Endocervix, processed on [employer] ThinPrep Imaging System, with manual evaluation Last [...] Ashley THOMAS PATHOLOGY ORDERABLES PAUL ARELLANO [address] [place] [address] documented in this encounter Visit Diagnoses Not on filedocumented in this encounter
--- OUTSIDE RECORDS SUMMARY | 2024-02-22 14:10 | XMS_ITS | Encounter Summary ---
Author Organization [facility] [place] [address] Care Team Providers Care Member Of Congress Name Role Phone Magdalena Acosta MD Primary Care Provider [phone] Encounter Details Date Type Department Care Team (Latest Contact Info) Description 12/01/2023 Travel Social History Tobacco Use Types Packs/Day Years Used Date Smoking Tobacco: Never Smokeless Tobacco: Never Alcohol Use Standard Drinks/Week Comments No 0 (1 standard drink = 0.6 oz pur e alcohol) none [facility] Inpatient Questions Answer Date Recorded Does Anyone [...] 4:15 PM EDT Office Visit Dermatology at [address] [facility] [place] [phone] Marek Bonilla MD [address] [place] [address] [place] [address] 06/05/2024 11:30 AM EST Office [place] [address] Magdalena Peralta MD [facility] [place] [address] documented as of this encounter Visit Diagnoses Not on filedocumented in this encounter Care Teams Member Of Congress Relationship Specialty Start Date End Date Magdalena Acosta MD [address] [place] [address] PCP - General Family Medicine 02/05/23 documented as of this encounter
--- OUTSIDE RECORDS SUMMARY | 2024-02-22 14:10 | XMS_ITS | Clinical Summary ---
Author Organization [facility] Address [facility] [place] [address] Care Team Providers Care Supervisor Vegetable Farming Name Role Phone Magdalena Acosta MD Primary Care Provider [phone] Allergies No known active allergies Medications Medication [...] fraction 05/08/2023 Mild coronary artery disease by [facility] 11/09/2022 Heart failure with reduced e jection [...] Encounters Date Type Department Care Team Description 02/22/2024 Travel 12/16/2023 Orders Only Cardiology at [address] [address] Antelmo Sharma MD S/P TAVR (transcatheter aortic valve replacement) 12/02/2023 11:15 AM EDT Office [place] [address] Magdalena Peralta MD Mixed connective [...] = 0.6 oz pur e alcohol) none [facility] Inpatient Questions Answer Date Recorded [...] 4:15 PM EDT Office Visit Dermatology at [place] [address] [place] [phone] Marek Bonilla MD [address] [place] [address] 06/05/2024 11:30 AM EST Office Visit [place] [phone] Magdalena Peralta MD [facility] [place] [address] Health Maintenance Due Date Last Done Comments [...] Needed 1995 Advance Directive 2010 Covid-19 Vaccine (1 - 2022-2 4 season) 2023 Breast Cancer screening 06/05/2023 06/05/2021, 06/05 Influenza (Flu) vaccine (1 o f 1 - Influenza standard series) 04/02/2024 05/22/2023, 05/18/2016 Diabetes Screening (HgbA1C o r Glucose) 07/08/2026 07/08/2023, 05/22/2023, 05/21/2023, Additional history exists Bone Density Scan 06/05/2036 06/05/2021 Medical Devices Implanted Type Area Ice Seller Device Identifier Shelf Expiration Date Model / Serial / Lot Valve,Aor,Pericar d,Magna,25mm ([id number]) - [id number] Implanted:Qty: 1 on 09/21/2016 by Alirio Esparza MD at [facility] IMPLANTS N/A: Heart DO NOT USE [employer] - [id number] 06/02/2020 [id number] / / [id number] Cable,Blnt,Ss,38i n ([id number]) - [id number] Implanted:Qty: 4 on 09/21/2016 by Alirio Esparza MD at [facility] IMPLANTS N/A: Chest [employer] - [id number] 04/29/2021 [id number] / / [id number] Patch,Cav,Pericar d,2x5cm ([id number]) ([employer]) - [id number] Implanted:Qty: 1 on 09/21/2016 by Alirio Esparza MD at [facility] IMPLANTS N/A: Heart DO NOT USE [employer] - [id number] 04/21/2018 [id number] / / [id number] Tavr-05/12/2023 Implanted:Qty: 1 on 05/12/2023 by Antelmo Sharma MD Other Heart [employer] - [place] [id number] / [id number] / Description:[employer] NCES ABBY 3 ULTRA [...] Alirio Esparza MD CHEMISTRY ORDERABLE S [facility] [place] [address] * DXA Central Spine, Hip, and/or Whole Body (Generic) (06/05/2021 11:58 AM EDT) PT CLASS O DH RAD ADMITDTTM DH RAD PT RAD INFO [id number]^E VERETT^DEBORAH ^E DH RAD EXAM DESC XDXAC^DEXA SCAN AXIAL^RIS RAD [...] questions please contact the health personal care aid that requested your imaging first. ? Narrative [...] have questions please contactthe health personal care aid that requested your imaging first. Electronically signed by: Rocael Villatoro MD, [facility]([phone]), at 06/05/2021 12:00 PM Deborah Quiroga TRANSFER TABLE OPERATOR HELPER IMG DEXA ORDERABLES * Mammo Screening Cad Bilateral (06/05/2021 11:42 AM EDT) PT CLASS O RAD ADMITDTTM RAD PT RAD INFO [id number]^EV ERETT^DEBORAH^E RAD EXAM DESC MADDSC^SCREEN MAMMO BL [...] questions please contact the health personal care aid that requested your imaging first. ? Electronically signed by: Rocael Villatoro MD, [facility] ([phone]), at 06/05/2021 1:27 PM Narrative 06/05/2021 1:27 [...] have questions please contactthe health personal care aid that requested your imaging first. Electronically signed by: Rocael Villatoro MD, [facility]([phone]), at 06/05/2021 1:27 PM Deborah Quiroga APRN [...] capacity to make decision: Yes Care Teams Supervisor Vegetable Farming Relationship Specialty Start Date End Date Magdalena Acosta MD [address] [place] [address] PCP - General Family Medicine 02/05/23
--- OUTSIDE RECORDS SUMMARY | 2024-02-22 14:10 | XMS_ITS | Referral Summary ---
Author Organization [facility] Address [address] [place] [address] Care Team Providers Care Yarn Packer Name Role Phone Ashley Chavez Primary Care Provider [phone] Social History Tobacco Use Types Packs/Day Years Used Date Smoking Tobacco: Never Assessed Interpersonal Safety Answer Date Record ed Physically Hurt Never 03/03/2020 Verbally Threaten Not on file 03/03/2020 Sex and Gender Information Value Date Recorded Sex Assigned at Not on file Gender Identity Not on file Sexual Orientation Not on file Plan of Treatment Not on file Care Teams Yarn Packer Relationship Specialty Start Date End Date Ashley Chavez ARNP [address] [place] [address] PCP - General 07/11/10
--- OUTSIDE RECORDS SUMMARY | 2024-02-22 14:10 | XMS_ITS | Encounter Summary ---
Author Organization [facility] Address [address] [place] [address] Care Team Providers Care Zone Supervisor Firearms Name Role Phone Ashley Chavez Primary Care Provider [phone] Encounter Details Date Type Department Care Team (Late st Contact Info) Description 04/29/2022 Lab Requisition [facility] Pathology & Laboratory Medicine - [address] [address] Outr Resulting Lab, Provider Social History Tobacco [...] Antibody 1.6 <20.0 Units 04/30/2022 12:23 EDT [facility] Comment: ? Negative: <20.0 [...] A ND SEROLOGY ORDERABLES Performing Organization Address [facility] de Phone Number [facility] [address] [place] [address] * SSA ANTIBODIES BY DOMO (04/29/2022 7:51 EDT) SSA Antibody 1.5 <20.0 Units 04/30/2022 12:22 EDT [facility] Comment: ? Negative: <20.0 [...] SEROLOGY ORDERABLES Performing Organization Address [facility] de Phone Number [facility] [address] [place] [address] documented in this encounter Visit Diagnoses Not on filedocumented in this encounter Care Teams Zone Supervisor Firearms Relationship Specialty Start Date End Date Ashley Chavez ARNP [address] [place] [address] PCP - General 07/11/10 documented as of this encounter
--- OUTSIDE RECORDS SUMMARY | 2024-02-22 14:10 | XMS_ITS | Encounter Summary ---
Author Organization [facility] Address [facility] [place] [address] Care Team Providers Care Refinery Operator Helper Cracking Unit Name Role Phone Magdalena Acosta MD Primary Care Provider [phone] Encounter Details Date Type Department Care Team (Late st Contact Info) Description 07/29/2023 11:00 AM EST Office [place] [address] Magdalena Peralta MD [facility] [place] [address] Mixed connective tissue disease Social History Tobacco [...] 1:5120 speckled; VIC negative; Myositis panel with NEWSPAPER DELIVERER ab 149.1 (positive); Anti U1RNP IgG 119; [...] Viramontes. Magdalena Peralta MD Rheumatology Fellow Pager: [phone] * Kia Viramontes DO - 07/29/2023 11:00 AM EST ATTENDING ADDENDUM The patient's history was reviewed, and I interviewed and examined the patient with Dr. Peralta I agree with her summary, findings, and plan. documented in this encounter Plan of Treatment Upcoming Encounters Date Type Department Care Team (Late st Contact Info) Description 02/22/2024 4:15 PM EDT Office Visit Dermatology at [address] [address] Marek Bonilla MD [address] [place] [address] [place] [address] 06/05/2024 11:30 AM EST Office [place] [address] Magdalena Peralta MD [facility] [place] [address] documented as of this encounter Results * [...] PFT FEV1/FVC Pre-BD Z-Score 0 COMPAS PFT PTT05-77 Actual Pre-BD 2.41 % COMPAS PFT IMB25-73 Predicted 1.8 % COMPAS PFT RYF69-96 Pre-BD % of Predicted 134 % COMPAS PFT GWX74-68 Pre-BD Z-Score 0.81 COMPAS PFT DLCO Hb [...] tissue documented in this encounter Care Teams Refinery Operator Helper Cracking Unit Relationship Specialty Start Date End Date Magdalena Acosta MD [address] [place] [address] PCP - General Family Medicine 02/05/23 documented as of this encounter
--- OUTSIDE RECORDS SUMMARY | 2024-02-22 14:10 | XMS_ITS | Encounter Summary ---
Author Organization [facility] Address [address] [place] [address] Care Team Providers Care Metal Spinner Name Role Phone Ashley Chavez Primary Care Provider [phone] Encounter Details Date Type Department Care Team (Late st Contact Info) Description 05/12/2022 Lab Requisition [facility] Pathology & Laboratory Medicine - [address] [address] Outr Resulting Lab, Provider Social History Tobacco [...] 14:32 EDT) Hold Hold 05/12/2022 22:46 EDT [facility] Blood VENOUS BLOOD / Unknown 05/12/2022 14:32 EDT 05/12/2022 21:40 EDT Provider Outr Resulting Lab LAB INFO SER VICE AND SUPPORT & PHONE RESULT Performing Organization Address [facility]/ZIP Co de Phone Number [facility] [address] [place] [address] * (ABNORMAL) HOMOCYSTEINE (05/12/2022 14:32 EDT) Homocysteine 14.7(H) 5.0 - 13.9 umol/L 05/13/2022 9:05 EDT [facility] Comment:Results may be false ly elevated if sample is not collected on ice or is not removed from cells within 1 hour of collection. Blood VENOUS BLOOD / Unknown 05/12/2022 14:32 EDT 05/12/2022 21:40 EDT Narrative [facility] - 05/13/2022 9:05 EDT [...] & BLOOD GAS ORDERABLES Performing Organization Address [facility] Co de Phone Number [facility] [address] [place] [address] * HAPTOGLOBIN (05/12/2022 14:32 EDT) Pathologist [facility] Haptoglobin 138 32 - 197 mg/dL 05/13/2022 9:55 EDT [facility] Blood VENOUS BLOOD / Unknown 05/12/2022 14:32 EDT 05/12/2022 21:36 EDT Provider Outr Resulting Lab CHEMISTRY & BLOOD GAS ORDERABLES Performing Organization Address [facility] Co de Phone Number [facility] [address] [place] [address] * (ABNORMAL) ANTI NUCLEAR AB (FRANCISCO), IFA (05/12/2022 14:32 EDT) FRANCISCO Interpretation Positive(A) Negative 05/13/2022 14:44 EDT [facility] Comment: Result is equal to or greater than 1:5120. For titers greater than or equal to 1:160 (except the centromere, nucleolar, and dense fine speckled patterns) it is recommended that specific, follow-up autoantibody testing (such as for dsDNA and Extractable Nuclear Antigens) be performed on all diffuse and/or speckled patterns. FRANCISCO Titer and Pattern 1 1:5120 Speckled 05/13/2022 14:44 EDT [facility] Blood VENOUS BLOOD / Unknown 05/12/2022 14:32 EDT 05/12/2022 21:36 EDT Narrative [facility] - 05/13/2022 14:44 EDT Results were obtained with the INOVA NOVA Lite HEp-2 FRANCISCO Kit by indirect immunofluorescence. Provider Outr Resulting Lab IMMUNOLOGY A ND SEROLOGY ORDERABLES [facility] [address] [place] [address] documented in this encounter Visit Diagnoses Not on filedocumented in this encounter Care Teams Metal Spinner Relationship Specialty Start Date End Date Ashley Chavez ARNP [address] [place] [address] PCP - General 07/11/10 documented as of this encounter
--- OUTSIDE RECORDS SUMMARY | 2024-02-22 14:10 | XMS_ITS | Encounter Summary ---
Author Organization [facility] [place] [address] Care Team Providers Care Broacher Name Role Phone Magdalena Acosta MD Primary Care Provider [phone] Reason for Referral * Diagnostic Test (Routine) - New Request Specialty Diagnoses / Procedures Referred By Contac t Referred To Contact Cardiology Diagnoses S/P TAVR (transcatheter aortic valve replacement) Procedures Echocardiogram Transthoracic Antelmo Sharma [place] [facility] [address] [facility] [place] [address] Referral ID Status Reason Start Date Expiration Date Visits Requested Visits Authorized [id number] New Request Specialty Service Requested 12/16/2023 12/15/2024 1 1 Encounter Details Date Type Department Care Team (Late st Contact Info) Description 12/16/2023 Orders Only Cardiology at [address] [address] Antelmo Sharma [place] [address] S/P TAVR (transcatheter aortic valve replacement) [...] 4:15 PM EDT Office Visit Dermatology at [place] [address] [place] [address] Marek Bonilla MD [address] [facility] [place] [address] 06/05/2024 11:30 AM EST Office [place] [address] Magdalena Peralta MD [facility] [place] [address] Scheduled Orders Name Type Priority Associated Diagnoses [...] replacement) documented in this encounter Care Teams Broacher Relationship Specialty Start Date End Date Magdalena Acosta MD [address] [place] [address] PCP - General Family Medicine 02/05/23 documented as of this encounter
--- OUTSIDE RECORDS SUMMARY | 2024-02-22 14:10 | XMS_ITS | Encounter Summary ---
Author Organization [facility] [place] [address] Care Team Providers Care Reeling Operator Name Role Phone Magdalena Acosta MD Primary Care Provider [phone] Encounter Details Date Type Department Care Team (Latest Contact Info) Description 10/04/2023 Travel Social History Tobacco Use Types Packs/Day Years Used Date Smoking Tobacco: Never Smokeless Tobacco: Never Alcohol Use Standard Drinks/Week Comments No 0 (1 standard drink = 0.6 oz pur e alcohol) none [facility] Inpatient Questions Answer Date Recorded [...] PM EDT Office Visit Dermatology at [address] [facility] [place] [phone] Marek Bonilla MD [address] [place] [address] [place] [address] 06/05/2024 11:30 AM EST Office Visit [place] [address] Magdalena Peralta MD [facility] [place] [address] documented as of this encounter Visit Diagnoses Not on filedocumented in this encounter Care Teams Reeling Operator Relationship Specialty Start Date End Date Magdalena Acosta MD [address] [place] [address] PCP - General Family Medicine 02/05/23 documented as of this encounter
--- OUTSIDE RECORDS SUMMARY | 2024-02-22 14:10 | XMS_ITS | Encounter Summary ---
Author Organization [facility] Address [address] [place] [address] Care Team Providers Care Floor Cleaner Name Role Phone Ashley Chavez Primary Care Provider [phone] Encounter Details Date Type Department Care Team (Late st Contact Info) Description 06/23/2016 Results Only [facility] [phone] Matthew Acevedo, DO [address] [facility] [place] [address] [place] [address] Social History Tobacco Use Types Packs/Day [...] ? 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 Accession #: ? [id number] : ? 1955 (Age: 60) ??F ?Collect [...] ??400 ?? KARYOTYPE: 46,XX[25] End of Report [facility] 06/23/2016 06/24/2016 Matthew Acevedo DO PATHOLOGY ORDER JODIE [facility] [address] [place] [address] * FLOW CYTOMETRY (06/23/2016 0:00 EST) Pathology Report: FLOW CYTOMETRY REPORT Reports generated via electronic interface contain original data; however they are lacking the format of the original report. Caution should be taken when reading/interpreting unformatted reports. Name: ? 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 Accession #: ? [id number] : ? 1955 (Age: 60) ??F ?Collect Date: ? 06/23/2016 00:00 Location: ? [facility] ? Receive Date: ? 06/24/2016 08:00 Provider: ?MATTHEW ACEVEDO DO Copy to: ?WINTER HANKINS CLOTH WASHER OPERATOR MARIO ALBERTO RAMOS MD ? FINAL IMMUNOPHENOTYPIC INTERPRETATION: ? Bone marrow, flow cytometric analysis: -No immunophenotypic evidence of a clonal cell population. ??See comment. ? COMMENT: The results of flow cytometry show no immunophenotypic evidence of involvement by a clonal lymphoproliferative or myeloproliferative disorder. ??Correlation of these findings with morphologic and clinical data is essential. ??Please refer to pathology report number [id number] for morphologic details. ? Document reviewed and [...] the Department of Pathology and Laboratory Medicine, [place] ??It has not been cleared or [...] clinical laboratory testing. End of Report ?? [facility] 06/23/2016 06/24/2016 8:0 0 EST Matthew Acevedo DO PATHOLOGY ORDER JODIE [facility] [address] [place] [address] * BONE MARROW/HEMPATH CONSULT (06/23/2016 0:00 EST) Pathology Report: BONE MARROW REPORT Reports generated via electronic interface contain original data; however they are lacking the format of the original report. Caution should be taken when reading/interpreting unformatted reports. Name: ? 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 Accession #: ? [id number] : ? 1955 (Age: 60) ??F ?Collect Date: ? 06/23/2016 Location: ? [facility] ? Receive Date: ? 06/24/2016 Provider: ? MATTHEW ACEVEDO DO Copy to: ?WINTER HANKINS CLOTH WASHER OPERATOR MARIO ALBERTO RAMOS MD ? DIAGNOSIS: Peripheral [...] #1: Aggregate biopsy length: 8 mm with fox farmer trabeculae of lamellar bone, cellular bone marrow, [...] SEE ABOVE DISCUSSION Lambda (polyclonal, Dako) ??(B1): [place] (polyclonal, Dako) ??(B1): Biopsy (decalcified) #2: Aggregate biopsy length: 8 mm with fox farmer trabeculae of lamellar bone, cellular bone marrow, [...] (M115, Leica) ??(B2): Lambda (polyclonal, Dako) ??(B2): [place] (polyclonal, Dako) ??(B2): NOTE: ??One or more [...] performance characteristics have been determined by [facility]. ??The positive and negative controls worked appropriately. [...] ? 1% Blasts ?1% Special Studies Cytogenetics ([id number]): Pending. Flow Cytometry ([id number]): No immunophenotypic evidence of a clonal cell population. ? End of Report [facility] 06/23/2016 06/24/2016 Matthew Acevedo DO PATHOLOGY ORDER JODIE [facility] [address] [place] [address] documented in this encounter Visit Diagnoses Not on filedocumented in this encounter Care Teams Floor Cleaner Relationship Specialty Start Date End Date Ashley Chavez ARNP [address] [place] [address] PCP - General 07/11/10 documented as of this encounter
--- OUTSIDE RECORDS SUMMARY | 2024-02-22 14:10 | XMS_ITS | Encounter Summary ---
[place] [address] Care Team Providers Care Frozen Meat Cutter Name Role Phone Magdalena Acosta MD Primary Care Provider [phone] Encounter Details Date Type Department Care Team (Latest Contact Info) Description 10/05/2023 10:52 AM EST - 10/05/2023 11:59 PM [facility] [place] [address] Mixed connective tissue disease Discharge Disposition: Home Social History Tobacco Use Types Packs/Day Years Used Date Smoking Tobacco: Never Smokeless Tobacco: Never Alcohol Use Standard Drinks/Week Comments No 0 (1 standard drink = 0.6 oz pur e alcohol) none [facility] Inpatient Questions Answer Date [...] PM EDT Office Visit Dermatology at [address] [place] [address] Marek Bonilla MD [address] [facility] [place] [address] 06/05/2024 11:30 AM EST Office [place] [address] Magdalena Peralta MD [facility] [place] [address] documented as of this encounter Procedures Procedure [...] PFT FEV1/FVC Pre-BD Z-Score 0 COMPAS PFT TYF29-62 Actual Pre-BD 2.41 % COMPAS PFT GSQ35-27 Predicted 1.8 % COMPAS PFT OIC31-01 Pre-BD % of Predicted 134 % COMPAS PFT IMT96-45 Pre-BD Z-Score 0.81 COMPAS PFT DLCO Hb [...] tissue documented in this encounter Care Teams Frozen Meat Cutter Relationship Specialty Start Date End Date Magdalena Acosta MD [address] [place] [address] PCP - General Family Medicine 02/05/23 documented as of this encounter
--- OUTSIDE RECORDS SUMMARY | 2024-02-22 14:10 | XMS_ITS | Encounter Summary ---
Author Organization [facility] Address [address] [place] [address] Care Team Providers Care Call Center Specialist Name Role Phone Scott Ashley WILLIAM Primary Care Provider [phone] Encounter Details Date Type Department Care Team (Late st Contact Info) Description 05/12/2019 Results Only [facility] [phone] Nadira Gregorio MD [address] [place] [phone] Social History Tobacco Use Types Packs/Day [...] ? 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 Accession #: ? [id number] ? : ? 1955 (Age: 63) ??F ? Collect Date: ? 05/12/2019 ? Location: ? [facility] ? Receive Date: ? 05/12/2019 ? Provider: NADIRA GREGORIO MD Copy to: WINETR HANKINS INTERNAL REVENUE SERVICE AGENT ? Final Pathologic Diagnosis: COLON, CECUM, POLYP, [...] (ASCP) 05/12/2019 6:08 PM End of Report [facility] 05/12/2019 16:0 3 EDT 05/12/2019 16:03 EDT Nadira Gregorio MD PATHOLOGY ORDERABLES [facility] [address] [place] [address] documented in this encounter Visit Diagnoses Not on filedocumented in this encounter Care Teams Call Center Specialist Relationship Specialty Start Date End Date Ashley Chavez ARNP [address] [place] [address] PCP - General 07/11/10 documented as of this encounter
--- OUTSIDE RECORDS SUMMARY | 2024-02-22 14:10 | XMS_ITS | Encounter Summary ---
Author Organization [facility] [place] [address] Care Team Providers Care Dry Press Operator Helper Name Role Phone Magdalena Acosta MD Primary Care Provider [phone] Encounter Details Date Type Department Care Team (Late st Contact Info) Description 07/08/2023 10:15 AM EST Office Visit Cardiology at [address] [phone] Severe aortic stenosis Social History Tobacco Use Types Packs/Day Years Used Date Smoking Tobacco: Never Smokeless Tobacco: Never Alcohol Use Standard Drinks/Week Comments No 0 (1 standard drink = 0.6 oz pur e alcohol) none [facility] Inpatient Questions Answer Date Recorded Does [...] PM EDT Office Visit Dermatology at [place] [address] [place] [address] Marek Bonilla MD [address] [place] [address] 06/05/2024 11:30 AM EST Office [place] [address] Magdalena Peralta MD [facility] [place] [address] documented as of this encounter Procedures Procedure [...] (Bezet) 449 ms MUSE SYSTEM Calculated P Rodman 66 degrees MUSE SYSTEM Calculated R Rodman 60 degrees MUSE SYSTEM Calculated T Rodman 53 degrees MUSE SYSTEM INTERPRETATION Normal sinus rhythm Minimal voltage criteria for LVH, may be normal variant ( Sokolow-Orozco ) ST & T wave abnormality, consider lateral ischemia ??vs. repolarization abnormality from LVH Abnormal ECG When compared with ECG of 13-MAY-2023 09:22, Premature ventricular complexes are no longer Present Minimal criteria for Septal infarct are no longer Present Confirmed by Maxx Best ([id number]) on 07/09/2023 10:07:22 AM MUSE SYSTEM 07/08/2023 10:2 7 AM EST 07/09/2023 10:07 AM EST Brody Kaplan APRN ECG ORDERABLES [facility] SYSTEM documented in this encounter Visit Diagnoses Diagnosis Severe aortic stenosis Aortic valve disorders documented in this encounter Care Teams Dry Press Operator Helper Relationship Specialty Start Date End Date Magdalena Acosta MD [address] [place] [address] PCP - General Family Medicine 02/05/23 documented as of this encounter
--- OUTSIDE RECORDS SUMMARY | 2024-02-22 14:10 | XMS_ITS | Encounter Summary ---
Author Organization [facility] [place] [address] Care Team Providers Care Sand Mill Operator Facing Sand Name Role Phone Magdalena Acosta MD Primary Care Provider [phone] Reason for Referral * Diagnostic Test (Routine) - Closed Specialty Diagnoses / Procedures Referred By Contac t Referred To Contact Cardiology Diagnoses S/P TAVR (transcatheter aortic valve replacement) Procedures Echocardiogram Transthoracic Vinod Juárez PA [facility] [place] [address] [facility] [place] [address] Referral ID Status Reason Start Date Expiration Date V isits Requested Visits Authorized [id number] Closed Specialty Service Requested 05/22/2023 05/21/2024 1 1 Reason for Visit * Diagnostic Test (Routine) - Closed Specialty Diagnoses / Procedures Referred By Contac t Referred To Contact Cardiology Diagnoses S/P TAVR (transcatheter aortic valve replacement) Procedures Echocardiogram Transthoracic Vinod Juárez PA [facility] [place] [address] [facility] [place] [address] Referral ID Status Reason Start Date Expiration Date V isits Requested Visits Authorized [id number] Closed Specialty Service Requested 05/22/2023 05/21/2024 1 1 Encounter Details Date Type Department Care Team (Latest Contact Info) Description 07/08/2023 10:19 AM EST - 07/08/2023 11:59 PM EST Hospital Encounter Non-Invasive Cardiology Lab [facility] [place] [address] Alirio Esparza MD [facility] [address] CARDIOTH[place] [address] S/P TAVR (transcatheter aortic valve replacement) Discharge [...] 4:15 PM EDT Office Visit Dermatology at [place] [address] [facility] [place] [address] Marek Bonilla MD [address] [facility] [place] [address] 06/05/2024 11:30 AM EST Office [place] [address] Magdalena Peralta MD [facility] [place] [address] documented as of this encounter Procedures Procedure [...] EST Narrative 07/08/2023 12:26 PM EST [address] [place] [address] ? Echocardiogram Report Name: ONESIMO THACKER ?Study Date: 07/08/2023 10:31 AMBP: 118/60 mmHg ? Patient Location: 4A : 1955 ? Height: 155 cm ? Account: [id number] Age: 67 yrs ? Weight: 74 kg Gender: Female ?BSA: 1.7 m2 Ordering Physician: ALIRIO ESPARZA Referring Physician: VINOD JUÁREZ Performed By: Felicia Norris RDCS Reason For Study: S/P TAVR Exam Location: [facility]. Interpretation Summary Left ventricular systolic function [...] no significant change (post-procedure). Procedure Limited - 77031. Doppler - 79456. Color Doppler - 99154. Satisfactory quality. This study is limited because [...] Note Lee Kincaid MD - 07/08/2023 1 [place] [address] Echocardiogram Report Name: LASHELL THACKEROUISE Magalie Study Date: 0:31 AMBP: 118/60 mmHg Patient Location: : 1955 Height: 155 cm Account: [id number] Age: 67 yrs Weight: 74 kg Gender: Female BSA: 1.7 m2 Ordering Physician: ALIRIO ESPARZA Referring Physician: VINOD JUÁREZ Performed By: Felicia Norris RDCS Reason For Study: S/P TAVR Exam Location: [facility]. Interpretation Summary Left ventricular systolic function [...] is nosignificant change (post-procedure). Procedure Limited - 40497. Doppler - 53114. Color Doppler - 86085. Satisfactoryquality. This study is limited because of [...] replacement) documented in this encounter Care Teams Sand Mill Operator Facing Sand Relationship Specialty Start Date End Date Magdalena Acosta MD [address] [place] [address] PCP - General Family Medicine 02/05/23 documented as of this encounter
--- OUTSIDE RECORDS SUMMARY | 2024-02-22 14:10 | XMS_ITS | Encounter Summary ---
Author Organization Formerly [facility] [place] [address] Care Team Providers Care Electrician Helper Automotive Name Role Phone Magdalena Acosta MD Primary Care Provider [phone] Encounter Details Date Type Department Care Team (Latest Contact Info) Description 07/08/2023 Travel Social History Tobacco Use Types Packs/Day Years Used Date Smoking Tobacco: Never Smokeless Tobacco: Never Alcohol Use Standard Drinks/Week Comments No 0 (1 standard drink = 0.6 oz pur e alcohol) none [facility] Inpatient Questions Answer Date Recorded [...] PM EDT Office Visit Dermatology at [address] [facility] [place] [phone] Marek Bonilla MD [address] [facility] [place] [address] 06/05/2024 11:30 AM EST Office [place] [address] Magdalena Peralta MD [facility] [address] documented as of this encounter Visit Diagnoses Not on filedocumented in this encounter Care Teams Electrician Helper Automotive Relationship Specialty Start Date End Date Magdalena Acosta MD [address] [place] [address] PCP - General Family Medicine 02/05/23 documented as of this encounter
--- OUTSIDE RECORDS SUMMARY | 2024-02-22 14:10 | XMS_ITS | Encounter Summary ---
Author Organization Formerly [facility] [place] [address] Care Team Providers Care Racing Car Driver Name Role Phone Magdalena Acosta MD Primary Care Provider [phone] Encounter Details Date Type Department Care Team (Late st Contact Info) Description 05/27/2023 Refill Cardiology at [address] [phone] Vero Marrero, RN Social History Tobacco Use Types Packs/Day Years Used Date Smoking Tobacco: Never Smokeless Tobacco: Never Alcohol Use Standard Drinks/Week Comments No 0 (1 standard drink = 0.6 oz pur e alcohol) none [facility] Inpatient Questions Answer Date Recorded Does Anyone [...] PM EDT TC to Nurse Sosa at [facility] to relay response from Jay Maza copied below. Nurse Sosa states they will send a new prescription to patient's preferred pharmacy and call the patient with the medication information. No print prescription sent to update med list. May 27, 2023 Jay Maza PA to [place] 05/27/23 2:44 PM OK to change ticagrelor to Clopidogrel. Now, she should be taking ticagrelor 90mg BID. When she switches, she can take ticagrelor, then the next morning, stop ticagrelor, instead take clopidogrel 300mg once, then after that 75mg once daily. Jay Marrero traffic engineering technician Clinic at [facility] [phone] * Telephone Encounter - Vero Marrero RN - 05/27/2023 1:46 PM EDT VM received from triage nurse Sosa at [facility] stating patient was seen today [...] more affordable option, if possible. Vero Marrero traffic engineering technician Clinic at [facility] [phone] documented in this encounter Plan of Treatment Upcoming Encounters Date Type Department Care Team (Late st Contact Info) Description 02/22/2024 4:15 PM EDT Office Visit Dermatology at [place] [address] [place] [address] Marek Bonilla MD [address] [facility] [place] [address] 06/05/2024 11:30 AM EST Office [place] [address] Magdalena Peralta MD [facility] [address] [place] [address] documented as of this encounter Visit Diagnoses Diagnosis Aortic valve stenosis, etiology of cardiac valve disease unspecified documented in this encounter Care Teams Racing Car Driver Relationship Specialty Start Date End Date Magdalena Acosta MD [address] [place] [address] PCP - General Family Medicine 02/05/23 documented as of this encounter
--- OUTSIDE RECORDS SUMMARY | 2024-02-22 14:10 | XMS_ITS | Encounter Summary ---
Author Organization [facility] Address [facility] [place] [address] Care Team Providers Care Rate Analyst Name Role Phone Magdalena Acosta MD Primary Care Provider [phone] Reason for Visit * Reason Comments Coronary Artery Disease Hypertension Aortic Stenosis Encounter Details Date Type Department Care Team (Latest Contact Info) Description 07/20/2023 4:40 PM EST TH Visit (TeleHealth) Cardiology at [address] [place] [address] Jay Maza PA [facility] [place] [address] HFrEF (heart failure with reduced ejection fraction); Hypertension, unspecified type; Aortic valve stenosis, etiology of cardiac valve disease unspecified Social History Tobacco Use Types Packs/Day Years Used Date Smoking Tobacco: Never Smokeless Tobacco: Never Alcohol Use Standard Drinks/Week Comments No 0 (1 standard drink = 0.6 oz pur e alcohol) none [facility] Inpatient Questions Answer Date Recorded Does Anyone [...] Maza PA - 07/20/2023 4:40 PM EST [facility] [place] [...] lieu of an in person office visit. Associate Producer: Antelmo Sharma MD ([facility]) Maria Luz Mejia MD ([facility] cards) Problem List: : prior surgical [...] fraction I35.0 Mild coronary artery disease by [facility] 11/09/2022 I25.10 Heart failure with [...] notable for coronary artery protection given low [id number] distance. There was no obstruction post Valve deployment, but the stent could not be removed safely, so it was deployed. 4.0 mm x 30mm in left main. She was loaded on brilinta aka ticagrelor. Immediately post valve deployment, chest compressions to circulate central epinephrine which was administered given her hypotension, low LVEF, and low cardiac reserve. Next, the patient was transferred to [facility] for pressor and inotropic support. Pressors weaned overnight. Cardiac indices by thermodilution remained greater than 3 with continued Milrinone 0.125 mcg/kg/min. EKG the next day with NSR with stable TX/QRS intervals. Hemoglobin 7.8 today from 8.5, likely [...] arms and wrists. Successful right transfemoral TAVR [id number] with a 23 mm Lai 3 THV. [...] leads Confirmed by MD Harshil, Haris Bell ([id number]) on 05/10/2023 8:11:46 AM Cardiac Cath 11/09/2022 [...] in chart review and direct patient contact. [id number] 0-5min [id number] 6-10min [id number] 11-15min [id number] 16-20min x [id number] 21-30min [id number] 31-40min [id number] 40+ min Jay Maza PA-C Interventional Cardiology [facility] Pager [phone] documented in this encounter Plan of Treatment Upcoming Encounters Date Type Department Care Team (Late st Contact Info) Description 02/22/2024 4:15 PM EDT Office Visit Dermatology at [place] [address] [place] [address] Marek Bonilla MD [address] [facility] [place] [address] 06/05/2024 11:30 AM EST Office [place] [address] Magdalena Peralta MD [facility] [place] [address] documented as of this encounter Visit Diagnoses Diagnosis HFrEF (heart failure with reduced ejection fraction) Hypertension, unspecified type Aortic valve stenosis, etiology of cardiac valve disease unspecified documented in this encounter Care Teams Rate Analyst Relationship Specialty Start Date End Date Magdalena Acosta MD [address] [place] [address] PCP - General Family Medicine 02/05/23 documented as of this encounter
--- OUTSIDE RECORDS SUMMARY | 2024-02-22 14:10 | XMS_ITS | Encounter Summary ---
Author Organization [facility] Address [address] [place] [address] Care Team Providers Care Rehabilitation Services Counselor Name Role Phone Ashley Chavez Primary Care Provider [phone] Encounter Details Date Type Department Care Team (Latest Contact Info) Description 05/12/2019 13:18 EDT - 05/12/2019 23:59 EDT Hospital Encounter [address] [address] Unknown, Provider, Discharge Disposition: Home or Self Care Social History Tobacco Use Types Packs/Day Years Used Date Smoking Tobacco: Never Assessed Sex and Gender Information Value Date Recorded Sex Assigned at Not on file Gender Identity Not on file Sexual Orientation Not on file documented as of this encounter Discharge Disposition Disposition Code Departure Means Destination Home or Self Detention documented in this encounter Plan of Treatment Not on file documented as of this encounter Visit Diagnoses Not on filedocumented in this encounter Care Teams Rehabilitation Services Counselor Relationship Specialty Start Date End Date Ashley Chavez ARNP [address] [place] [address] PCP - General 07/11/10 documented as of this encounter
--- OUTSIDE RECORDS SUMMARY | 2024-02-22 14:10 | XMS_ITS | Encounter Summary ---
Author Organization [facility] Address [address] [place] [address] Care Team Providers Care Image Editor Name Role Phone Scott Ashley WILLIAM Primary Care Provider [phone] Encounter Details Date Type Department Care Team (Late st Contact Info) Description 11/10/2013 Results Only [facility] [phone] Jeni Laird, OUTSIDE SOLAR SALES CONSULTANT [address] [place], [place] [phone] Social History Tobacco Use Types Packs/Day Years [...] ? 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 Accession #: ? [id number] : ? 1955 (Age: 58) ??F ?Collect Date: ? 11/10/2013 Location: ? [facility] ? Receive Date: ? 11/14/2013 Provider: ?JENI LAIRD OUTSIDE SOLAR SALES CONSULTANT Copy to: ? Specimen/Source: ?Pap Test, Endocervix, [...] Report PAUL ARELLANO 11/10/2013 11/14/2013 Jeni Laird OUTSIDE SOLAR SALES CONSULTANT PATHOLOGY ORDERAB LES Performing Organization Address City/State/[facility] Co de Phone Number PAUL ARELLANO [address] [place] [address] documented in this encounter Visit Diagnoses Not on filedocumented in this encounter Care Teams Image Editor Relationship Specialty Start Date End Date Ashley Chavez ARNP [address] [place] [address] PCP - General 07/11/10 documented as of this encounter
--- OUTSIDE RECORDS SUMMARY | 2024-02-22 14:10 | XMS_ITS | Encounter Summary ---
Author Organization [facility] Address [address] [place] [address] Care Team Providers Care Aircraft Mechanic Name Role Phone Unavailable Primary Care Provider Unavailabl e Encounter Details Date Type Department Care Team (Late st Contact Info) Description 06/29/2007 Results Only [facility] - Maple conversion [address] [place] [address] Sánchez Acevedo MD [address] [place] [address] Social History Tobacco Use Types Packs/Day Years [...] ? 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 Accession #: ? [id number] ? : ? 1955 (Age: 51) ??F [...] covered by a smooth white serosa. ??Three marketing sales representative sections of the gallbladder are submitted in one cassette. ??(Sriram Elias/[facility] End of Report [facility] 06/29/2007 06/29/2007 21: 23 EST Sánchez Acevedo MD PATHOLOGY ORDERABLE [facility] [address] [place] [address] documented in this encounter Visit Diagnoses Not on filedocumented in this encounter
--- OUTSIDE RECORDS SUMMARY | 2024-02-22 14:10 | XMS_ITS | Encounter Summary ---
[place] [address] Care Team Providers Care Bookkeeping Clerks Supervisor Name Role Phone Magdalena Acosta MD Primary Care Provider [phone] Encounter Details Date Type Department Care Team (Latest Contact Info) Description 07/08/2023 12:35 PM EST Laboratory Appointment Lab [address] [place] [address] S/P TAVR (transcatheter aortic valve [...] 4:15 PM EDT Office Visit Dermatology at [place] [address] [facility] [place] [phone] Marek Bonilla MD [address] [facility] [place] [address] 06/05/2024 11:30 AM EST Office [place] [address] Magdalena Peralta MD [facility] [place] [address] documented as of this encounter Procedures Procedure [...] 11:56 AM EST) Neutrophils % 73.2 % [facility] Neutr Abs (ANC) 3.40 1.70 - 6.10 x10(3)/mc L [facility] Lymphocytes % 16.1 % [facility] Lymphocytes Abs 0.8(L) 0.9 - 3.2 x10(3)/mc L [facility] Monocytes % 9.7 % [facility] Monocyte Abs 0.4 0.3 - 0.9 x10(3)/mc L [facility] Eosinophils % 0.4 % [facility] Eosinophils Abs 0.0 0.0 - 0.4 x10(3)/mc L [facility] Basophils % 0.4 % [facility] Basophils Abs 0.0 0.0 - 0.1 x10(3)/mc L [facility] Immature Gran % 0.20 % [facility] Comment: Immature granulocytes(IG's)percentage and absolute count will include metamyelocytes, myelocytes, and promyelocytes. Blood smears from CBCs yielding IG's will be scanned manually for concordance. If this scan disagrees with the automated IG or if promyelocytes are noted, a manual differential will be performed. Amanda Gran Abs 0.01 0.00 - 0.04 x10(3)/mc L [facility] Blood 07/08/2023 11:5 6 AM EST 07/08/2023 12:02 PM EST Narrative Resulting Agency Comment Spec In Lab Minh TOBAR HEMATOLOGY ORDERABLE S [facility] [place] [address] * (ABNORMAL) Hemogram (07/08/2023 11:56 AM EST) WBC 4.6 4.0 - 9.5 x10(3)/[facility] RBC 3.34(L) 4.00 - 5.21 x10(6)/[facility] Hemoglobin 11.0(L) 11.7 - 15.5 g/dL [facility] Hematocrit 33.2(L) 35.7 - 45.8 % [facility] MCV 99.4(H) 82.6 - 94.[address] [facility] MCH 32.9(H) 27.1 - 32.[address] [facility] MCHC 33.1 31.7 - 35.0 g/dL [facility] Platelets 166 145 - 357 x10(3)/[facility]ORATORY RDWSD 47.1(H) 37.0 - 46.[address] [facility] RDWCV 13.0 11.5 - 14.1 % [facility] MPV 9.0 7.6 - 12.9 [facility]ORATORY nRBC % Auto 0.0 % [facility] nRBC Abs Auto 0.000 0.000 - 0.000 x10(3)/mcL [facility] Blood 07/08/2023 11:5 6 AM EST 07/08/2023 12:02 PM EST Narrative Resulting Agency Comment Spec In Lab Minh TOBAR HEMATOLOGY ORDERABLE S [facility] [place] [address] * (ABNORMAL) Comprehensive metabolic panel (non-fasting) (07/08/2023 11:56 AM EST) Glucose Lvl 93 65 - 199 mg/dL [facility] Comment:Diabetes: >=200 mg/d L plus symptoms BUN 19(H) 8 - 18 mg/dL [facility] Creatinine 0.81 0.70 - 1.20 mg/dL [facility] Sodium 142 135 - 145 mmol/L [facility] Potassium 3.8 3.5 - 5.0 mmol/L [facility] Comment: Please note: ??Patients with WBC >100,000 may have falsely elevated Potassium levels. ??For accurate Potassium quantification in these patients send serum separator tube (gold top) for subsequent determinations. ??Contact the Clinical Chemistry Laboratory if there are any questions. Chloride 104 98 - 107 mmol/L [facility] CO2 26 22 - 31 mmol/L [facility] Anion Gap 12 5 - 15 mmol/L [facility] Calcium 10.2 8.5 - 10.5 mg/dL [facility] Total Protein 7.4 6.1 - 8.0 g/dL [facility] Albumin 4.1 3.2 - 5.2 g/dL [facility] AST 24 0 - 30 unit/L [facility] ALT 12 0 - 30 unit/L [facility] Alk Phos 93 35 - 105 unit/L [facility] Total Bilirubin 0.3 0.2 - 1.3 mg/dL [facility] Estimated GFR 80 >=60 mL/min/1. 73 m?? [facility] [...] Resulting Agency Comment Spec In Lab Alirio Epsarza MD CHEMISTRY ORDERABLE S Performing Organization Address City/State/[facility] Co de Phone Number [facility] [place] [address] documented in this encounter Visit Diagnoses Diagnosis S/P TAVR (transcatheter aortic valve replacement) Severe aortic stenosis Aortic valve disorders documented in this encounter Care Teams Bookkeeping Clerks Supervisor Relationship Specialty Start Date End Date Magdalena Acosta MD [address] [place] [address] PCP - General Family Medicine 02/05/23 documented as of this encounter
--- OUTSIDE RECORDS SUMMARY | 2024-02-22 14:10 | XMS_ITS | Encounter Summary ---
Author Organization [facility] Address [address] [place] [address] Care Team Providers Care Liquid Hydrogen Plant Operator Name Role Phone Unavailable Primary Care Provider Unavailabl e Encounter Details Date Type Department Care Team (Late st Contact Info) Description 03/24/2007 11:06 EDT - 03/24/2007 11:59 EDT Hospital Encounter [facility] - Other [address] [place] [address] Ashley Chavez ARNP [address] [place] [address] Discharge Disposition: Home or Self Care Social [...]
--- OUTSIDE RECORDS SUMMARY | 2024-02-22 14:10 | XMS_ITS | Encounter Summary ---
Author Organization [facility] Address [address] [place] [address] Care Team Providers Care Lsw Name Role Phone Ashley Chavez Primary Care Provider [phone] Encounter Details Date Type Department Care Team (Late st Contact Info) Description 01/07/2023 Lab Requisition [facility] Pathology & Laboratory Medicine - [address] [id number] Outr Resulting Lab, Provider Social History Tobacco [...] 56.2 55.8 - 66.1 % 01/08/2023 11:28 [facility] Albumin g/dL 3.9 3.6 - 5.2 g/dL 01/08/2023 11:28 [facility] Alpha-1 % 5.1(H) 2.9 - 4.9 % 01/08/2023 11:28 [facility] Alpha-1 g/dL 0.40 0.15 - 0.40 g/dL 01/08/2023 11:28 [facility] Alpha-2 % 7.0(L) 7.1 - 11.8 % 01/08/2023 11:28 [facility] Alpha-2 g/dL 0.50 0.50 - 1.00 g/dL 01/08/2023 11:28 [facility] Beta % 12.7 8.4 - 13.1 % 01/08/2023 11:28 [facility] Beta g/dL 0.90 0.60 - 1.20 g/dL 01/08/2023 11:28 [facility] Gamma % 19.0(H) 11.1 - 18.8 % 01/08/2023 11:28 [facility] Gamma g/dL 1.30 0.60 - 1.60 g/dL 01/08/2023 11:28 [facility] SPEP Comment No apparent monoclonal protein seen on serum electrophoresis 01/08/2023 11:28 [facility] Comment:See scanned/suppleme ntary report. Total Protein 6.9 6.3 - 8.2 g/dL 01/08/2023 11:28 [facility] Blood VENOUS BLOOD / Unknown 01/06/2023 14:40 EDT 01/07/2023 17:37 EDT Provider Outr Resulting Lab CHEMISTRY & BLOOD GAS ORDERABLES Performing Organization Address City/State/[facility] Co de Phone Number [facility] [address] [place] [address] * PROTEIN, TOTAL (01/06/2023 14:40 EDT) Blood VENOUS BLOOD / Unknown 01/06/2023 14:40 EDT 01/07/2023 17:37 EDT Provider Outr Resulting Lab CHEMISTRY & BLOOD GAS ORDERABLES Performing Organization Address [facility] Co de Phone Number [facility] [address] [place] [address] * (ABNORMAL) EXTRACTABLE NUCLEAR ANTIGEN PANEL (01/06/2023 14:40 EDT) SSA Antibody 1.3 <20.0 Units 01/08/2023 15:42 EDT [facility] Comment: ? Negative: <20.0 [...] Antibody 1.5 <20.0 Units 01/08/2023 15:42 EDT [facility] Comment: ? Negative: <20.0 [...] Antibody 15.3 <20.0 Units 01/08/2023 15:42 EDT [facility] Comment: ? Negative: <20.0 Units ? Weak Positive: 20.0 - 39.9 Units ? Moderate Positive: 40.0 - 80.0 Units ? Strong Positive: >80.0 Units Results were obtained with the [employer] QUANTA Lite Sm DOMO. ??Sm values obtained with different manufacturers' assay methods may not be used interchangeably. ??The magnitude of the reported IgG levels cannot be correlated to an endpoint titer. PYROTECHNICS PRESS TENDER Antibody 149.1(H) <20.0 Units 01/08/2023 15:42 EDT [facility] Comment: ? Negative: <20.0 Units ? Weak Positive: 20.0 - 39.9 Units ? Moderate Positive: 40.0 - 80.0 Units ? Strong Positive: >80.0 Units Results were obtained with the [employer] Quanta Lite PYROTECHNICS PRESS TENDER DOMO. PYROTECHNICS PRESS TENDER values obtained with different liability analyst's assay methods may not be used interchangeaby. ??The magnitude of the reported IgG levels cannot be be correlated to an endpoint titer. A positive result in the Quanta Lite PYROTECHNICS PRESS TENDER DOMO indicates the presence of antibodies reactive with the PYROTECHNICS PRESS TENDER/Sm complex but cannot distinguish between anti-Sm and anti-PYROTECHNICS PRESS TENDER activity. Blood VENOUS BLOOD / Unknown 01/06/2023 14:40 EDT 01/07/2023 17:37 EDT Provider Outr Resulting Lab IMMUNOLOGY A ND SEROLOGY ORDERABLES [facility] [address] [place] [address] * (ABNORMAL) ANTI NUCLEAR AB (FRANCISCO), IFA (01/06/2023 14:40 EDT) FRANCISCO Interpretation Positive(A) Negative 01/08/2023 15:22 EDT [facility] Comment: Result is [...] Pattern 1 1:5120 Speckled 01/08/2023 15:22 EDT [facility] Blood VENOUS BLOOD / Unknown 01/06/2023 14:40 EDT 01/07/2023 17:37 EDT Narrative [facility] - 01/08/2023 15:22 EDT Results were obtained with the INOVA NOVA Lite HEp-2 FRANCISCO Kit by indirect immunofluorescence. Provider Outr Resulting Lab IMMUNOLOGY A ND SEROLOGY ORDERABLES Performing Organization Address City/State/[facility] Co de Phone Number [facility] [address] [place] [address] documented in this encounter Visit Diagnoses Not on filedocumented in this encounter Care Teams Lsw Relationship Specialty Start Date End Date Ashley Chavez ARNP [address] [place] [address] PCP - General 07/11/10 documented as of this encounter
--- OUTSIDE RECORDS SUMMARY | 2024-02-22 14:10 | XMS_ITS | Encounter Summary ---
Author Organization [facility] Address [address] [place] [address] Care Team Providers Care Music Internship Name Role Phone Unavailable Primary Care Provider Unavailabl e Encounter Details Date Type Department Care Team (Late st Contact Info) Description 04/20/2005 Results Only [facility] - Maple conversion [address] [place] [address] Ziggy Valiente MD [address] [place] [phone] Social History Tobacco Use Types Packs/Day Years [...] ? 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 Accession #: ? [id number] ? : ? 1955 (Age: 49) ??F [...] correlation with endoscopic appearance is recommended. (Dr. Chino)/[facility] Document reviewed and electronically signed by: [...] is entirely submitted in one cassette. ??(Arabella Santos)/[facility] End of Report PAUL ARELLANO 04/20/2005 04/21/2005 15: 04 EDT Ziggy Valiente MD PATHOLOGY ORDERABLES [facility] ARELL[facility] [address] [place] [address] documented in this encounter Visit Diagnoses Not on filedocumented in this encounter
--- OUTSIDE RECORDS SUMMARY | 2024-02-22 14:10 | XMS_ITS | Encounter Summary ---
Author Organization [facility] Address [address] [place] [address] Care Team Providers Care Hot Walker Name Role Phone Unavailable Primary Care Provider Unavailabl e Encounter Details Date Type Department Care Team (Late st Contact Info) Description 07/08/2010 Results Only [facility] Non-Invasive Cardiology - [facility] [address] [place] [address] Ashley Chavez, WILLIAM [address] [place] [address] Social History Tobacco Use Types Packs/Day Years [...] ? 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 Accession #: ? [id number] ? : ? 1955 (Age: 54) ??F [...] Ashley THOMAS PATHOLOGY ORDERABLES PAUL ARELLANO [address] [place] [address] documented in this encounter Visit Diagnoses Not on filedocumented in this encounter
--- OUTSIDE RECORDS SUMMARY | 2024-02-22 14:10 | XMS_ITS | Encounter Summary ---
Author Organization Replaced By [facility] Address [facility] [place] [address] Care Team Providers Care Client Care Manager Name Role Phone Magdalena Acosta MD Primary Care Provider [phone] Reason for Visit * Reason Comments Aortic Stenosis Coronary Artery Disease Hypertension Encounter Details Date Type Department Care Team (Latest Contact Info) Description 11/16/2023 11:40 AM EDT TH Visit (TeleHealth) Cardiology at [address] [place] [address] [place] [address] Aortic valve stenosis, etiology of cardiac valve disease unspecified; Coronary artery disease, unspecified vessel or lesion type, unspecified whether angina present, unspecified whether [place] or transplanted heart Social History Tobacco Use [...] from the original note were not included. [facility] Interventional Cardiology CARDIOLOGY TELE VISIT NOTE 11/16/23 Patient: Purnima Thacker Prior to the initiation of our discussion, the risks and benefits of tele health visits were discussed, and the patient consented verbally to this being a virtual telehealth visit in lieu of an in person office visit. CARDIOLOGISTS: Antelmo Sharma MD ([facility] Cards) Maria Luz Mejia MD ([facility] Cards - [facility]) Problem List: Aortic valve stenosis: [...] fraction I35.0 Mild coronary artery disease by [facility] 11/09/2022 I25.10 Heart failure with reduced [...] notable for coronary artery protection given low [id number] distance. There was no obstruction post Valve [...] had a very reassuring recent echo in [facility], in scanned docs. LVEF 55%. [...] leads Confirmed by MD Harshil, Haris Bell ([id number]) on 05/10/2023 8:11:46 AM Cardiac Cath 11/09/2022 [...] in one year. EKATERINA Thompson Time spent: [id number] 0-5min [id number] 6-10min [id number] 11-15min x [id number] 16-20min 7957BCV4 21-30min 9791FUR0 31-40min [id number] 40+ min Jay Maza PA-C Interventional Cardiology [facility] Pager [phone] documented in this encounter Plan of Treatment Upcoming Encounters Date Type Department Care Team (Late st Contact Info) Description 02/22/2024 4:15 PM EDT Office Visit Dermatology at [address] [place] [address] Marek Bonilla MD [address] [place] [address] 06/05/2024 11:30 AM EST Office [place] [address] Magdalena Peralta MD [facility] [place] [address] documented as of this encounter Visit Diagnoses Diagnosis Aortic valve stenosis, etiology of cardiac valve disease unspecified Coronary artery disease, unspecified vessel or lesion type, unspecified whether angina present, unspecified whether [place] or transplanted heart documented in this encounter Care Teams Client Care Manager Relationship Specialty Start Date End Date Magdalena Acosta MD [address] [place] [address] PCP - General Family Medicine 02/05/23 documented as of this encounter
--- OUTSIDE RECORDS SUMMARY | 2024-02-22 14:10 | XMS_ITS | Clinical Summary ---
Author Organization [facility] Address [address] [place] [address] Care Team Providers Care Selector Packer Name Role Phone Ashley Chavez Primary Care Provider [phone] Social History Tobacco Use Types Packs/Day Years [...] COVID-19 Vaccine (2022-24 season) 2023 Care Teams Selector Packer Relationship Specialty Start Date End Date Ashley Chavez ARNP [address] [place] [address] PCP - General 07/11/10
--- OUTSIDE RECORDS SUMMARY | 2024-02-22 14:10 | XMS_ITS | Encounter Summary ---
Author Organization [facility] [place] [address] Care Team Providers Care Director Of Medical Staff Services Name Role Phone Magdalena Acosta MD Primary Care Provider [phone] Encounter Details Date Type Department Care Team (Latest Contact Info) Description 07/29/2023 Travel Social History Tobacco Use Types Packs/Day Years Used Date Smoking Tobacco: Never Smokeless Tobacco: Never Alcohol Use Standard Drinks/Week Comments No 0 (1 standard drink = 0.6 oz pur e alcohol) none [facility] Inpatient Questions Answer Date Recorded Does Anyone [...] PM EDT Office Visit Dermatology at [address] [facility] [place] [address] Marek Bonilla MD [address] [facility] [place] [address] 06/05/2024 11:30 AM EST Office [place] [address] Magdalena Peralta MD [facility] [place] [address] documented as of this encounter Visit Diagnoses Not on filedocumented in this encounter Care Teams Director Of Medical Staff Services Relationship Specialty Start Date End Date Magdalena Acosta MD [address] [place] [address] PCP - General Family Medicine 02/05/23 documented as of this encounter
--- OUTSIDE RECORDS SUMMARY | 2024-02-22 14:10 | XMS_ITS | Encounter Summary ---
Author Organization [facility] Address [address] [place] [address] Care Team Providers Care Trestle Builder Name Role Phone Ashley Chavez Primary Care Provider [phone] Encounter Details Date Type Department Care Team (Late st Contact Info) Description 12/17/2021 Lab Requisition [facility] Pathology & Laboratory Medicine - [address] [address] Outr Resulting Lab, Provider Social History Tobacco [...] Lyme Ab Negative Negative 12/18/2021 10:37 EDT [facility] Blood VENOUS BLOOD / Unknown 12/17/2021 13:30 EDT 12/17/2021 21:32 EDT Provider Outr Resulting Lab IMMUNOLOGY A ND SEROLOGY ORDERABLES Performing Organization Address [facility] Co de Phone Number [facility] [address] [place] [address] * (ABNORMAL) ANTI NUCLEAR AB (FRANCISCO), IFA (12/17/2021 13:30 EDT) FRANCISCO Interpretation Positive(A) Negative 12/18/2021 16:06 EDT [facility] Comment: For titers greater than [...] Pattern 1 1:1280 Speckled 12/18/2021 16:06 EDT [facility] Blood VENOUS BLOOD / Unknown 12/17/2021 13:30 EDT 12/17/2021 21:32 EDT Narrative [facility] - 12/18/2021 16:06 EDT Results were obtained with the INOVA NOVA Lite HEp-2 FRANCISCO Kit by indirect immunofluorescence. Provider Outr Resulting Lab IMMUNOLOGY A ND SEROLOGY ORDERABLES Performing Organization Address [facility] Co de Phone Number [facility] [address] [place] [address] documented in this encounter Visit Diagnoses Not on filedocumented in this encounter Care Teams Trestle Builder Relationship Specialty Start Date End Date Ashley Chavez ARNP [address] [place] [address] PCP - General 07/11/10 documented as of this encounter
--- OUTSIDE RECORDS SUMMARY | 2024-02-22 14:10 | XMS_ITS | Encounter Summary ---
Author Organization [facility] [place] [address] Care Team Providers Care Inhalation Therapy Teacher Name Role Phone Magdalena Acosta MD Primary Care Provider [phone] Encounter Details Date Type Department Care Team (Latest Contact Info) Description 07/06/2023 Travel Social History Tobacco Use Types Packs/Day Years Used Date Smoking Tobacco: Never Smokeless Tobacco: Never Alcohol Use Standard Drinks/Week Comments No 0 (1 standard drink = 0.6 oz pur e alcohol) none [facility] Inpatient Questions Answer Date Recorded Does [...] 4:15 PM EDT Office Visit Dermatology at [address] [place] [address] Marek Bonilla MD [address] [facility] [place] [address] 06/05/2024 11:30 AM EST Office [place] [address] Magdalena Peralta MD [facility] [place] [address] documented as of this encounter Visit Diagnoses Not on filedocumented in this encounter Care Teams Inhalation Therapy Teacher Relationship Specialty Start Date End Date Magdalena Acosta MD [address] [place] [address] PCP - General Family Medicine 02/05/23 documented as of this encounter
--- OUTSIDE RECORDS SUMMARY | 2024-02-22 14:10 | XMS_ITS | Encounter Summary ---
Author Organization [facility] [place] [address] Care Team Providers Care Terrazzo Layer Name Role Phone Magdalena Acosta MD Primary Care Provider [phone] Encounter Details Date Type Department Care Team (Latest Contact Info) Description 02/22/2024 Travel Social History Tobacco Use Types Packs/Day Years Used Date Smoking Tobacco: Never Smokeless Tobacco: Never Alcohol Use Standard Drinks/Week Comments No 0 (1 standard drink = 0.6 oz pur e alcohol) none [facility] Inpatient Questions Answer Date Recorded Does [...] PM EDT Office Visit Dermatology at [address] [place] [facility] [place] [address] Marek Bonilla MD [address] [place] [address] [place] [address] 06/05/2024 11:30 AM EST Office [place] [address] Magdalena Peralta MD [facility] [place] [address] documented as of this encounter Visit Diagnoses Not on filedocumented in this encounter Care Teams Terrazzo Layer Relationship Specialty Start Date End Date Magdalena Acosta MD [address] [place] [address] PCP - General Family Medicine 02/05/23 documented as of this encounter
--- OUTSIDE RECORDS SUMMARY | 2024-02-22 14:10 | XMS_ITS | Encounter Summary ---
Author Organization [facility] [place] [address] Care Team Providers Care Data Center Manager Name Role Phone Magdalena Acosta MD Primary Care Provider [phone] Encounter Details Date Type Department Care Team (Late st Contact Info) Description 12/02/2023 11:15 AM EDT Office [place] [address] Magdalena Peralta MD [facility] [place] [address] Mixed connective tissue disease Social History Tobacco [...] 1:5120 speckled; VIC negative; Myositis panel with LABEL PINKER ab 149.1 (positive); Anti U1RNP IgG 119; [...] list of questions that she sent via [facility] ahead of her visit, which we [...] exposure. She has an appointment with her Loss Prevention Research Engineer scheduled in January. (Dr Bonilla in [place]) ROS (positives in bold): Gen: no fevers, [...] but I encouraged her to contact her Loss Prevention Research Engineer to see if she could have her [...] Dr. Tanisha Peralta MD Rheumatology Fellow Pager: [phone] * Federico Yee MD - 12/02/2023 11:15 [...] 4:15 PM EDT Office Visit Dermatology at [place] [address] [place] [address] Marek Bonilla MD [address] [facility] [place] [address] 06/05/2024 11:30 AM EST Office [place] [address] Magdalena Peralta MD [facility] [place] [address] Scheduled Orders Name Type Priority Associated Diagnoses Orde r Schedule EKG 12 Lead ECG Routine Mixed connective tissue disease Expected: 12/02/2023, Expires: 06/03/2024 documented as of this encounter Visit Diagnoses Diagnosis Mixed connective tissue disease Other specified diffuse disease of connective tissue documented in this encounter Care Teams Data Center Manager Relationship Specialty Start Date End Date Magdalena Acosta MD [address] [place] [address] PCP - General Family Medicine 02/05/23 documented as of this encounter
--- OUTSIDE RECORDS SUMMARY | 2024-02-22 14:11 | XMS_ITS | Encounter Summary ---
Author Organization [facility] Address [facility] [place] [address] Care Team Providers Care Editor Managing Newspaper Name Role Phone Magdalena Acosta MD Primary Care Provider [phone] Reason for Referral * Diagnostic Test (Routine) - Closed Specialty Diagnoses / Procedures Referred By Contac t Referred To Contact Cardiology Diagnoses S/P TAVR (transcatheter aortic valve replacement) Procedures Echocardiogram Transthoracic Vinod Juárez PA [facility] [place] [address] [facility] [place] [address] Referral ID Status Reason Start Date Expiration Date V isits Requested Visits Authorized [id number] Closed Specialty Service Requested 05/22/2023 05/21/2024 1 1 * Home Health Care (Routine) - Closed Specialty Diagnoses / Procedures Referred By Contac t Referred To Contact Diagnoses S/P TAVR (transcatheter aortic valve replacement) Alirio Hudson MD [facility] [place] [address] [facility] [address] [place] [address] Referral ID Status Reason Start Date Expiration Date V isits Requested Visits Authorized [id number] Closed Consult, Test & Treat 05/22/2023 11/18/2023 999 999 * Consultation (Routine) - Closed Specialty Diagnoses / Procedures Referred By Crispin maxwell Referred To Contact Cardiology Diagnoses S/P TAVR (transcatheter aortic valve replacement) Alirio Hudson MD [facility] [place] [address] Cardiac Rehab, [facility] [address] [place] [address] [place] [address] Referral ID Status Reason Start Date Expiration Date V isits Requested Visits Authorized [id number] Closed Consult, Test & Treat 05/22/2023 11/18/2023 36 36 * Diagnostic Test (Routine) - Closed Specialty Diagnoses / Procedures Referred By Crispin maxwell Referred To Contact Cardiology Diagnoses Aortic valve stenosis, etiology of cardiac valve disease unspecified Procedures Echocardiogram Transthoracic Transesophageal Echocardiogram (YUSRA) Radha Hollins MD [facility] [place] [address] [facility] [place] [address] Referral ID Status Reason Start Date Expiration Date V isits Requested Visits Authorized [id number] Closed Specialty Service Requested 05/11/2023 05/10/2024 1 1 Reason for Visit * Auth/Cert (Routine) Specialty Diagnoses / Procedures Referred By Crispin maxwell Referred To Contact Diagnoses Symptomatic severe aortic stenosis with low ejection fraction NSTEMI, CHF Enrique Chua MD [facility] [place] [address] [facility] Referral ID Status Reason Start Date Expiration Date Visits Re quested Visits Authorized [id number] 1 1 Encounter Details Date Type Department Care Team (Latest Contact Info) Description 05/08/2023 9:14 AM EDT - 05/22/2023 10:46 AM EDT Hospital Encounter Heart and Vascular Unit Level 4 [place] [address] Enrique Chua MD [facility] [place] [address] Juan Luis Gonzalez MD [facility] [place] [address] Radha Hollins MD [facility] [place] [address] Alirio Hudson MD [facility] [place] [address] S/P TAVR (transcatheter aortic valve replacement) (Primary Dx); Aortic valve stenosis, etiology of cardiac valve disease unspecified; Symptomatic severe aortic stenosis with low ejection fraction; Heart failure with reduced ejection fraction due to heart valve disease; Mild coronary artery disease by [facility] 11/09/2022; Mixed connective tissue disease; Neck [...] Patient Age: 67 y.o. Birthdate: 1955 Language: Cambodian Race: White Ethnicity: Not nor Admit Date: 05/08/2023 Discharge Date: 05/22/2023 Attending Physician: Alirio Hudson MD Follow-up Recommendations for Providers: Please continue routine management of cardiovascular risk factors including blood pressure, lipids,glucose, etc. Please note any medication changes. Patient to follow up with PCP, Magdalena Acosta MD, or Primary Bell Hole Digger, Avis Mejia MD, in ~ 7-10 days. Patient to follow up with Continuity Coordinator, Dr. Antelmo Sharma, in 2 weeks with an EKG, Echo, CBC, and CMP. Patient to follow up with Nephrology, their office to arrange. Dxap-Nppyts-tw interval: After initial 30 day follow-up appointment , all TAVR patients will follow-up again in one year with an echo. 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 Secondary Diagnoses: Active Hospital Problems Diagnosis S/P TAVR (transcatheter aortic valve replacement) Cardiogenic shock Symptomatic severe aortic stenosis with low ejection fraction Mild coronary artery disease by [facility] 11/09/2022 Heart failure with reduced ejection [...] Tube Placement Right 05/18/2023 Laure Ricks PA [facility] INTERVENTIONL RAD PRG CATH PLMT LEFT HEART CATH & ARTS W/INJ & ANGIO IMG S&I N/A 11/09/2022 CORONARY ANGIOGRAPHY; W [facility],POSSIBLE PCI (WRVU 5.6) performed by Mario Alberto Escobedo MD at [facility] CATH LABS PRG COMBINED RIGHT & LEFT HEART CATH W/INJ L VENTRICULOGRAPHY, IMG S&I N/A 05/12/2023 COMBINED RIGHT & LEFT HEART CATH,INC INJ FOR L VENTRICULOGRAPHY (WRVU 5.99) performed by Antelmo Sharma MD at [facility] CATH LABS PRO AORTOPLAS FOR SUPRAVALV STEN N/A 09/21/2016 @AORTOPLASTY FOR SUPRAVALVULAR STENOSIS (WRVU 29.33) performed by Alirio Hudson MD at [facility] MAIN OR PRO REPLACE AORTIC VALVE (TAVR/FEDERICO)PERC FEMORAL ARTERY APPROACH 05/12/2023 @TRANSCATHETER AORTIC VALVE REPLACEMENT (TAVR), PERCUTANEOUS FEMORAL (WRVU 22.47) performed by Alirio Hudson MD at [facility] CATH LABS PRO REPLACEMENT PROSTHETIC AORTIC VALVE OPEN W CARDIOPULMONARY BYPASS HOMOGRF/STENT N/A 09/21/2016 @REPLACE AORTIC VALVE, OPEN, W\CPB, W\PROSTHETIC VALVE (WRVU 41.32) performed by Alirio Hudson MD at [facility] MAIN OR Prior To Admission Medications [...] Major Procedures/Operations: 05/12/23: Successful right transfemoral TAVR Rvuxh-di-Hvcdp with a 23 mm Lai 3 THV. Left coronary protection with left main MINNA. Hospital Course: #Severe prosthetic s/p valve in valve TF TAVR #Low coronary heights s/p left main stent for coronary protection #Type 2 NSTEMI, present on arrival, resolved #Acute decompensated HFrEF #Cardiogenic shock #EVANS / Cardiorenal syndrome Purnima Thacker was admitted to [facility] on 05/08/2023 via the Cardiology Service with [...] and she was brought to the laborer turkey farm the following morning where Drs. Alirio Hudson [...] if you have questions. Please call your Continuity Coordinator's office if you have any discharge or drainage from your procedural sites. Your Continuity Coordinator, Dr. Antelmo Sharma and/or the Lamination Machine Operator may be reached at . Antibiotic prophylaxis: You will need to take antibiotics prior to many invasive tests and treatments, such as dental cleaning, which should be done every 6 months. Your primary care physician or your dentist can prescribe this medication. Please refer to the card with the [place] [employer] Guidelines for more information. You have been provided with a copy of this card. Please refer to the [place] [employer] Guidelines for more information. Good [...] friends, go to a movie, go to jew, etc. Heavy activities: No hunting, skiing, jogging, [...] should resume a low fat, low cholesterol, [place] [employer] Diet Driving: No restrictions. Shower/Bath: You may shower daily. No baths, soaking, or swimming for the first week. Wound care: Wash the sites daily with soap and rinse well, pat dry. Assess for any signs of infection such as increased redness, pain, warmth or drainage. Please call your aquatics director's office if you have any discharge or drainage from your procedural sites. If there is a lot of swelling, apply mamta wraps during the day and remove at bedtime. Elevate your legs when you are sitting. Home oxygen therapy: N/A Follow up appointments: Please schedule a follow-up appointment with your PCP, Magdalena Acosta MD, or Primary Bell Hole Digger in ~ 7-10 days. You have a follow-up appointment with your Continuity Coordinator, Dr. Antelmo Sharma, in 2 weeks with an EKG, Echo, and labs prior to your appointment. You will need follow-up with Nephrology, their office will arrange. Hmrj-Hvqqvn-ia interval: After initial 30 day follow-up appointment , all TAVR patients will follow-up again in one year with an echo. Cardiac Rehabilitation: Purnima Thacker was seen today regarding participation in the outpatient Phase 2 Cardiac Rehabilitation at [facility]. The patient agrees to a referral to this program. The referral will be sent at discharge and the patient should be contacted by the Program within 1- 2 weeks from discharge. Future Appointments and Orders Future Appointments and Orders Future Appointments Provider Department Dept Phone 07/29/2023 11:00 AM Magdalena Peralta MD Rheumatology at [facility] Arrive at: [facility] [phone] 02/11/2024 2:00 PM Marek Bonilla MD Dermatology at [place] Arrive at: [facility] [address] [phone] Future Orders Complete By Expires Type and Screen Future Surgery, [facility] SAME DAY PROGRAM ONLY) [[id number] Custom] 05/11/2023 Process Instructions: This test is intended ONLY for patients with upcoming surgery for testing prior to the day of surgery obtained through the same day program (4V or SDP). For ALL OTHER PATIENTS, order a Type and Screen (ZQH040) This order includes the physician order for an ABO Recheck if requested by the Blood Bank. Scheduling Instructions: Comments: Questions: Date of surgery: CBC (with Diff) [FPX368 Custom] 06/05/2023 12/05/2023 Process Instructions: INCLUDES: WBC, RBC, Hgb, Hct, Platelets, RBC Indices and Differential Scheduling Instructions: Comments: Questions: Comprehensive metabolic panel (non-fasting) [LAB17 Custom] 06/05/2023 08/20/2023 Process Instructions: INCLUDES: Calcium, T Protein, Albumin, AST, ALT, Alk Phos, T Bili, BUN, Creat, GFR, Glucose, Lytes. Scheduling Instructions: Comments: Questions: Echocardiogram Transthoracic [30426 CPT(R)] 06/05/2023 12/05/2023 Process Instructions: Scheduling Instructions: Questions: Where will study be performed?: [facility] Clinics Does the patient have Congenital Heart Disease?: Does patient require sedation?: GA rationale: EKG 12 Lead [51122 CPT(R)] 06/05/2023 12/05/2023 Process Instructions: Scheduling Instructions: Questions: Which location will this be performed?: [place] Is a rhythm strip needed?: No [facility] Devices [EQ161 Custom] As directed Process Instructions: Scheduling Instructions: Questions: Device Needed: WALKER (E0143) Patient Height (cm): 154.9 cm (5' 0.98) Patient Weight: 75.4 kg (166 lb 3.2 oz) Diagnosis: Unsteady gait when walking Referral to Cardiac Rehab [AIK302 Custom] As directed Process Instructions: If no progress note charted, please enter Clinical details in comments. Scheduling Instructions: Questions: My question or request is: s/p TAVR. Cardiac rehab at [facility]. Referral to Home Health [REF34 Custom] As directed Process Instructions: If no progress note charted, please enter Clinical details in comments. Scheduling Instructions: Comments: DOCUMENTATION FOR VNA SERVICES PATIENT'S LOCATION: Purnima Thacker [address] [place] [phone] (home) Afternoon Nanny's Name: Irineo and brother Raymond In discussion with the attending physician, it is certified that this patient is under his/her careand that MD, or an BEACH EXPERT, STANDARDS ANALYST, or PA who is working directly with him/her, had a pvbo-tv-cyag encounter that meets the physician ilvq-vi-xwhq encounter requirements with this patient on 05/22/2023. [...] for managing ADLs. HOME HEALTH CARE AGENCY: [facility] [address] [facility] [address] PHONE: [phone] FAX: [phone] Start of care: Ideally 24-48 hours after [...] Acosta MD [address] / [place] [address] All VNA agencies which cover the area of patient's residence have been reviewed, either verbally joao writing, and patient has chosen the home health care agency noted. Questions: Disciplines Requested: Physical Therapy Occupational Therapy Discharge References/Attachments None Arrangements for VNA/home care: As above. (delete if no VNA) Signed: EKATERINA NAVARRETE [facility] Section of Cardiac Surgery Date: 05/22/2023 CC: Magdalena Acosta MD Hedwig VillageMario Alberto MD [address] [place] [address] documented in this encounter Discharge Instructions * Patient Instructions* Vinod Juárez PA - 05/22/2023 9:32 AM EDT TAVR Discharge Instructions: Call your doctor if: You have a fever of greater than 101 degrees, shaking chills, if you develop redness or drainage from your procedure sites, or if you have questions. Please call your Continuity Coordinator's office if you have any discharge or drainage from your procedural sites. Your Continuity Coordinator, Dr. Antelmo Sharma and/or the Lamination Machine Operator may be reached at . Antibiotic prophylaxis: You will need to take antibiotics prior to many invasive tests and treatments, such as dental cleaning, which should be done every 6 months. Your primary care physician or your dentist can prescribe this medication. Please refer to the card with the [place] [employer] Guidelines for more information. You have been provided with a copy of this card. Please refer to the [place] [employer] Guidelines for more information. Good [...] friends, go to a movie, go to jew, etc. Heavy activities: No hunting, skiing, jogging, [...] should resume a low fat, low cholesterol, [place] [employer] Diet Driving: No restrictions. Shower/Bath: You may shower daily. No baths, soaking, or swimming for the first week. Wound care: Wash the sites daily with soap and rinse well, pat dry. Assess for any signs of infection such as increased redness, pain, warmth or drainage. Please call your aquatics director's office if you have any discharge or drainage from your procedural sites. If there is a lot of swelling, apply mamta wraps during the day and remove at bedtime. Elevate your legs when you are sitting. Home oxygen therapy: N/A Follow up appointments: Please schedule a follow-up appointment with your PCP, Magdalena Acosta MD, or Primary Bell Hole Digger in ~ 7-10 days. You have a follow-up appointment with your Continuity Coordinator, Dr. Antelmo Sharma, in 2 weeks with an EKG, Echo, and labs prior to your appointment. You will need follow-up with Nephrology, their office will arrange. Ihxt-Ytdlsf-ux interval: After initial 30 day follow-up appointment , all TAVR patients will follow-up again in one year with an echo. Cardiac Rehabilitation: Purnimamariza Thacker was seen today regarding participation in the outpatient Phase 2 Cardiac Rehabilitation at [facility]. The patient agrees to a referral [...] ins ( tef) Haven Ba, PT Pager: [phone] Physical Therapy Inpatient Rehabilitation Department * Nico [...] 0600 and on the weekends please page [phone]. * Jory Paniagua - 05/20/2023 3:52 PM [...] vomiting Last Bowel Movement: 05/20/23 Jory Paniagua Hydraulic Jack Adjuster * Tong Mike, OT - 05/20/2023 3:16 [...] Tube Placement Right 05/18/2023 Laure Ricks PA [facility] INTERVENTIONL RAD PRG CATH PLMT LEFT HEART CATH & ARTS W/INJ & ANGIO IMG S&I N/A 11/09/2022 CORONARY ANGIOGRAPHY; W C,POSSIBLE PCI (WRVU 5.6) performed by Mario Alberto Escobedo MD at [facility] CATH LABS PRG COMBINED RIGHT & LEFT HEART CATH W/INJ L VENTRICULOGRAPHY, IMG S&I N/A 05/12/2023 COMBINED RIGHT & LEFT HEART CATH,INC INJ FOR L VENTRICULOGRAPHY (WRVU 5.99) performed by Antelmo Sharma MD at [facility] CATH LABS PRO AORTOPLAS FOR SUPRAVALV STEN N/A 09/21/2016 @AORTOPLASTY FOR SUPRAVALVULAR STENOSIS (WRVU 29.33) performed by Alirio Hudson MD at [facility] MAIN OR PRO REPLACE AORTIC VALVE (TAVR/FEDERICO)PERC FEMORAL ARTERY APPROACH 05/12/2023 @TRANSCATHETER AORTIC VALVE REPLACEMENT (TAVR), PERCUTANEOUS FEMORAL (WRVU 22.47) performed by Alirio Hudson MD at [facility] CATH LABS PRO REPLACEMENT PROSTHETIC AORTIC VALVE OPEN W CARDIOPULMONARY BYPASS HOMOGRF/STENT N/A 09/21/2016 @REPLACE AORTIC VALVE, OPEN, W\CPB, W\PROSTHETIC VALVE (WRVU 41.32) performed by Alirio Hudson MD at [facility] MAIN OR Social History: Patient lives alone. Home Setup: Pt lives on one level with tub shower and three steps to enter. DME: none used CONCRETING SUPERVISOR Baseline ADL/Mobility: Independent with ADLs and IADLs. 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 Total Minutes, Occupational Therapy: 28 (5441-5405) OT Evaluation Code Rationale: Diagnosis & Pertinent Co-Morbidities affecting Plan of Care: see PMHx Occupational Profile & Client History: Brief Expanded Extensive x Assessment of Occupational Performance: 1-3 performance deficits 3-5 performance deficits x 5 + performance deficits Clinical Decision Making: Low Moderate High x Clinical decision making of moderate complexity using standardized patient assessment instrument and measurable assessment of functional outcome. Pager: [phone] TONG MIKE OT 05/20/2023 Occupational Therapy Rehabilitation [...] 0600 and on the weekends please page [phone]. * Rylie Rodriguez MD - 05/19/2023 3:59 [...] and plan. Cynthia Blackburn MD Nephrology Pager: [phone] * Diana Espino - 05/19/2023 1:49 PM EDT Women'S Activities Adviser Encounter Note Patient Name: Purnima Thacker : [id number] MR#: [id number] Admit Date: 05/08/2023 9:14 AM Hospital Day [...] returning home alone. Anticipated Discharge Disposition (PT): [facility] facility, swing bed rehabilitation facility Consult Recommendations: [...] as stated. Total Minutes, Physical Therapy: 38 ([phone]) Henrik Navarrete, CONCRETING SUPERVISOR Pager: [phone] Physical Therapy Inpatient Rehabilitation Department * Nico [...] 0600 and on the weekends please page [phone]. * Laure Ricks PA - 05/19/2023 7:56 [...] Ricks PA-C Interventional Radiology IR Team Pager [phone] * Consuelo Espinoza RN - 05/18/2023 4:13 PM EDT ANGIO NURSING DATABASE Name: Purnima Thacker Date of : 1955 AGE: 67 y.o. Address: [address] [place] [phone] (home) Mobile: No relevant phone numbers on [...] I35.0 Mild coronary artery disease by [facility] 11/09/2022 I25.10 Heart failure with reduced [...] and plan. Cynthia Blackburn MD Nephrology Pager: [phone] * Khushi Magdalena Radha, FRONT OFFICE AGENT - 05/18/2023 10:51 AM EDT Images from the original note were not included. [place] [address] STRUCTURAL HEART DISEASE CONSULTATION NOTE PRIMARY CARE [...] stenosis. She is now status post TAVR Deiil-mv-Ruipv with a 23 mm Lai 3 THV 05/12/[address] Sharma. Preliminary findings: Successful right transfemoral TAVR Bndfm-uk-Qyrxp with a 23 mm Lai 3 THV. [...] perforation. Interval Events: - 05/12 Transferred to [facility] post- TAVR for pressor/inotropic support (Levo, [...] fraction Mild coronary artery disease by [facility] 11/09/2022 Heart failure with reduced ejection [...] injection 40 mg 40 mg Intravenous Daily GriffithvilleMara ernandez APRN 40 mg at 05/12/23 1004 [...] stenosis. She is now status post TAVR Tocmr-xv-Yefea with a 23 mm Lai 3 THV [...] Magdalena Puri APRN Structural Heart Team Pager [phone] Team Office Please see addendum by Dr. Sharma for final plan and recommendations Associated attestation - Antelmo Sharma MD - 05/19/2023 10:52 PM EDT I have reviewed Magdalena Puri APRN's above history and I agree with the details as written. The assessment and plan were formulated in discussion with me and I agree with them as documented. Antelmo Sharma MD Pager [phone] * Nico Palacios PA - 05/18/2023 8:13 [...] 0600 and on the weekends please page [phone]. * JudiLoli eid, PT - 05/17/2023 5:27 [...] returning home alone. Anticipated Discharge Disposition (PT): [facility] facility, swing bed rehabilitation facility Consult Recommendations: [...] plan as stated. Time IN / OUT: 5712-1077 Total Minutes, Physical Therapy: 54 Billing Code: te-sx2, te-f, gait LOLI HERNANDEZ PT Pager: [phone] Physical Therapy Inpatient Rehabilitation Department * Cynthia [...] Well controlled. Cynthia Blackburn MD Nephrology Pager: [phone] * Mara Serrano, ANURAG - 05/17/2023 8:26 [...] 0600 and on the weekends please page [phone]. * Guerda Del Valle - 05/16/2023 10:44 AM EDT Nutrition Services Note - Low Nutrition Acuity Purnima Thacker is a 67 y.o. female Reason for intervention: hospital day 9 Nutrition Plan: Continue diet order Encourage good PO Josephine noted Added special serve: open containers Monitor weight Patient scheduled for a hospital day 9 nutrition evaluation. Paraffin Plant Operator met with pt at bedside. Pt reports that her appetite and PO has much improved since admission. Denies nausea/vomiting or trouble chewing/swallowing. Paraffin Plant Operator provided snack list but pt not interested in adding snacks at this time. Her only concern was that she is worried that she will eat too much which will cause too much pressure in her stomach. Paraffin Plant Operator assured pt and suggested eating smaller [...] Last Bowel Movement: 05/10/23 Guerda Del Valle Hydraulic Jack Adjuster * Vinod Juárez PA - 05/16/2023 10:19 [...] 0600 and on the weekends please page [phone]. * Michael Jeffers MD - 05/16/2023 8:11 AM EDT Images from the original note were not included. Hypertension-Nephrology Inpatient Follow-up Purnima Thacker [id number] 1955 ID: 67 y.o. old female seen [...] IRONSAT 12 (L) 05/16/2023 SFOLATE >20.0 07/03/2022 [id number] 07/03/2022 Lab Results Component Value Date [...] Dr. Ayoub. Please contact me at phone: [phone] or pager: [phone] with any questions. Michael Jeffers MD Nephrology [...] -Nephrology consulted, labs and renal US ordered -Guthrie removed, ambulated around the unit -bilateral pleural [...] 0600 and on the weekends please page [phone]. * Hortencia Cody MD - 05/15/2023 2:07 [...] not included. Hypertension-Nephrology Inpatient Follow-up Purnima Thacker [id number] 1955 ID: 67 y.o. old female seen [...] HGB 7.8 (L) 05/13/2023 SFOLATE >20.0 07/03/2022 [id number] 07/03/2022 Lab Results Component Value Date [...] Dr. Ayoub. Please contact me at phone: [phone] or pager: [phone] with any questions. Michael Jeffers MD Nephrology [...] outlined inthis evaluation. HAVEN BA, PT Pager: [phone] Physical Therapy Inpatient Rehabilitation Department Time IN / OUT: 4038-3943 Total time: Total Minutes, Physical Therapy: 30 [...] 0600 and on the weekends please page [phone]. * Antelmo Sharma MD - 05/14/2023 7:56 AM EDT Images from the original note were not included. [facility] [place] [address] STRUCTURAL HEART DISEASE CONSULTATION NOTE PRIMARY CARE [...] stenosis. She is now status post TAVR Wlhsb-aa-Ofsns with a 23 mm Lai 3 THV 05/12/[address] Sharma. Preliminary findings: Successful right transfemoral TAVR Ynptp-jx-Xtpte with a 23 mm Lai 3 THV. [...] perforation. Interval Events: - 05/12 Transferred to [facility] post- TAVR for pressor/inotropic support (Levo, [...] fraction Mild coronary artery disease by [facility] 11/09/2022 Heart failure with reduced ejection [...] artery disease Assessment and Plan: Patient ID: Purnmia Thacker is a 67 y.o. 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 She is now status post TAVR Xfaec-up-Uoici with a 23 mm Lai 3 THV 05/12/[address] Sharma. Janet TAVR case notable for coronary LAD protective MINNA. Status post TAVR, the patient was transferred to [facility] for pressor and inotropic support. Pressors weaned overnight 05/12. Cardiac indices by thermodilution remained >3 with continued Milrinone 0.125 mcg/kg/min prior to PAC removal. EKG todayNSR with stable RI/QRS intervals. Hemoglobin slowly down-trending (8.2-> 7.8-> 7.2). [...] Brody Kaplan APRN Structural Heart Team Pager [phone] Team Office Please see addendum by Dr. [...] exposure. Nephrology consultationtoday. Antelmo Sharma MD Pager [phone] * Antelmo Cardenas RN - 05/14/2023 5:18 AM EDT Pt AOx4, complaining of mild/moderate generalized pain (states her Meloxicam is effective at home) currently refusing prn oxycodone. NAEON, hemodynamically stable on Milrinone, Maps >65, ST in [id number]'s down to NSR with frequent multifocal PVC's. [...] from the original note were not included. [place] [address] STRUCTURAL HEART DISEASE PROGRESS NOTE PRIMARY CARE [...] stenosis. She is now status post TAVR Rblpr-dq-Nbzzi with a 23 mm Lai 3 THV 05/12/[address] Sharma. Preliminary findings: Successful right transfemoral TAVR Dfmnk-ik-Bguml with a 23 mm Lai 3 THV. [...] fraction Mild coronary artery disease by [facility] 11/09/2022 Heart failure with reduced ejection [...] stenosis. She is now status post TAVR Pxxfd-iv-Izedm with a 23 mm Lai 3 THV 05/12/[address] Sharma. Janet TAVR case notable for coronary LAD protective MINNA. Status post TAVR, the patient was transferred to CV for pressor and inotropic support. Pressors weaned overnight. Cardiac indices by thermodilution remain greater than 3 with continued Milrinone 0.125 mcg/kg/min. EKG today NSR with stable RI/QRS intervals. Hemoglobin 7.8 today from 8.5, likely [...] Brody Kaplan APRN Structural Heart Team Pager [phone] Team Office Please see addendum by Dr. [...] DAPT moving forward. Antelmo Sharma MD Pager [phone] * Bonita Miguel PA - 05/13/2023 8:30 AM EDT Cardiac Surgery Progress Note Purnima Thacker is a 67 y.o. 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 PMH of s/p tissue AVR (2017), mixed connective tissue disease HTN, HLD, NICOLAS, diverticulosis, rosacea, essential tremor, and depression. 24h Events: From [employer] for above procedure Extubated at ~1600 to [...] soft b/l, no evidence of hematoma. Tubes/Lines/Drains: Guthrie, RIJ, A-line, Art, PIV Assessment/Plan: 67 y.o. [...] 0600 and on the weekends please page [phone]. * Onelia Schwartz MD - 05/12/2023 1:44 [...] fraction Mild coronary artery disease by [facility] 11/09/2022 Heart failure with reduced ejection [...] FiO2 weaned to 40%. 1105: ABG 7.34/42/73/22 8887-1754: SBT performed and passed on these settings [...] PCP: Magdalena Acosta MD PCP phone number: [phone] Date of Admission: 05/08/2023 ( Hospital Day [...] 0705/12/2331705/12/2310505/11/23193905/11/237 PHART -- 7.34* 7.34* -- -- MOU7IIE -- 30* 30* -- -- PO2ART -- 72* 81* -- -- KUH0DZP -- 16.0* 15.7* -- -- LACTATEVEN 2.4* 2.7* 2.7* 4.8* 2.9* VBG (Venous Blood Gas) Recent Labs 05/12/23 0705/12/2331705/12/2310505/11/23193905/11/231446 LACTATEVEN 2.4* 2.7* 2.7* 4.8* 2.9* Mixed Venous Sat Recent Labs 05/12/23 0508 05/12/23 0321 05/12/23 0114 05/12/23 0030 [id number] 30.7 32.7 37.3 25.1 Objective: Vitals Last [...] who have questions please contact the health post acute care nurse practitioner that requested your imaging first. Cardiac for [...] who have questions please contact the health post acute care nurse practitioner that requested your imaging first. Electronically signed by: Cullen Narayanan MD, [facility] ([phone]), at 05/11/2023 4:[address] Angiogram Abdomen [...] who have questions please contact the health post acute care nurse practitioner that requested your imaging first. Chest One [...] who have questions please contact the health post acute care nurse practitioner that requested your imaging first. Chest One [...] who have questions please contact the health post acute care nurse practitioner that requested your imaging first. Assessment & [...] and inotrope. She is planned for a wfpym-uk-inofy TAVR this morning, which should hopefully improve [...] MD, FACP, FACC Section of Cardiovascular Medicine [facility] Information Systems Security Developerpublic health internship [facility] [employer] [facility] * Noreen Deutsch RN - 05/12/2023 [...] fraction Mild coronary artery disease by [facility] 11/09/2022 Heart failure with reduced ejection [...] 05/11/2023 4:11 PM EDT Reported off to RESIDENTIAL SUPERVISOR and pt transferred over in the bed for higher level of care. * Antelmo Sharma MD - 05/11/2023 9:45 AM EDT Images from the original note were not included. [place] [place] [address] STRUCTURAL HEART DISEASE CONSULTATION NOTE PRIMARY CARE [...] who had been referred for possible TAVR apcre-ao-glqwe evaluation. Her primary symptoms are of dyspnea [...] Ms. Thacker is originally from [facility]. 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 She states [...] fraction Mild coronary artery disease by [facility] 11/09/2022 Heart failure with reduced ejection [...] hour(s)) Lactate, whole blood, send to lab ([facility]) Result Value Ref Range Lactate WB 3.1 (H) 0.5 - 2.2 mmol/L Heparin (unfractionated) Level Result Value Ref Range Heparin UFH Level 0.46 IU/mL Lactate, whole blood, send to lab ([facility]) Result Value Ref Range Lactate WB 1.8 [...] leads Confirmed by MD Harshil, Enrique Bell ([id number]) on 05/10/2023 8:11:46 AM Cardiac Cath 11/09/2022 [...] alert Dr. Hudson of her inpatient status, [place] primary cardiac surgeon. Based on recent clinic visit, tentative plan had been for TAVR JANET butwill doublecheck given her chronological age. Cardiac cath 11/09/2022 notable for non-obstructive coronary disease. TAVR CTAs planned for today. Will review her case with cardiac surgery to determine best timing and therapies for her valve intervention. Addendum 05/11/2023 6:48 PM Due to decompensating HFrEF, she was transferred to [facility] this afternoon for further management. TAVR CT imaging support for adequate ileofemoral access. Given her acute deterioration today, will planfor RTF TAVR on 05/12/2023. Brody Dale ANURAG Kaplan Structural Heart Disease Pager [phone] Please see addendum by Dr. Sharma for [...] signed and dated. Antelmo Sharma MD Pager [phone] * Harini Lance MD - 05/11/2023 6:06 AM EDT Images from the original note were not included. Cardiology Progress Note Patient info: Name: Purnima Thacker : 1955 PCP: Magdalena Acosta MD PCP phone number: [phone] Date of Admission: 05/08/2023 ( Hospital Day [...] who have questions please contact the health post acute care nurse practitioner that requested your imaging first. : 05/08 [...] 09/2016) Mild coronary artery disease by [facility] 11/09/2022 Hyperlipidemia, unspecified NICOLAS (obstructive sleep [...] PCP: Magdalena Acosta MD PCP phone number: [phone] Date of Admission: 05/08/2023 ( Hospital Day [...] 09/2016) Mild coronary artery disease by [facility] 11/09/2022 Hyperlipidemia, unspecified NICOLAS (obstructive sleep [...] PCP: Magdalena Acosta MD PCP phone number: [phone] Date of Admission: 05/08/2023 ( Hospital Day [...] Gas) No results found for: PHART, PO2ART, BYM2KLS, UGM3MOZ Microbiology: Microbiology Results (Last 30 days) No [...] PPx: Diet: Daily Healthy Menu Choices/Cardiac diet ([facility]-Diet) Lines: Peripheral IV Line [...] 09/2016) Mild coronary artery disease by [facility] 11/09/2022 Hyperlipidemia, unspecified NICOLAS (obstructive sleep [...] I35.0 Mild coronary artery disease by [facility] 11/09/2022 I25.10 Heart failure with reduced ejection fraction due to heart valve disease I50.20, I38 Cardiogenic shock R57.0 S/P TAVR (transcatheter aortic valve replacement) Z95.2 Past Medical History: Diagnosis Date Anemia Past Surgical History: Procedure Laterality Date PRG CATH PLNJ LEFT HEART CATH & ARTS W/INJ & ANGIO IMG S&I N/A 11/09/2022 CORONARY ANGIOGRAPHY; W [facility],POSSIBLE PCI (WRVU 5.6) performed by Mario Alberto Escobedo MD at [facility] CATH LABS PRO AORTOPLAS FOR SUPRAVALV STEN N/A 09/21/2016 @AORTOPLASTY FOR SUPRAVALVULAR STENOSIS (WRVU 29.33) performed by Alirio Hudson MD at [facility] MAIN OR PRO REPLACEMENT PROSTHETIC AORTIC VALVE OPEN W CARDIOPULMONARY BYPASS HOMOGRF/STENT N/A 09/21/2016 @REPLACE AORTIC VALVE, OPEN, W\CPB, W\PROSTHETIC VALVE (WRVU 41.32) performed by Alirio Hudson MD at [facility] MAIN OR Social History and Habits: [...] I35.0 Mild coronary artery disease by [facility] 11/09/2022 I25.10 Heart failure with reduced ejection fraction due to heart valve disease I50.20, I38 Cardiogenic shock R57.0 S/P TAVR (transcatheter aortic valve replacement) Z95.2 Past Medical History: Diagnosis Date Anemia Past Surgical History: Procedure Laterality Date PRG CATH PLNJ LEFT HEART CATH & ARTS W/INJ & ANGIO IMG S&I N/A 11/09/2022 CORONARY ANGIOGRAPHY; W [facility],POSSIBLE PCI (WRVU 5.6) performed by Mario Alberto Escobedo MD at [facility] CATH LABS PRO AORTOPLAS FOR SUPRAVALV STEN N/A 09/21/2016 @AORTOPLASTY FOR SUPRAVALVULAR STENOSIS (WRVU 29.33) performed by Alirio Hudson MD at [facility] MAIN OR PRO REPLACEMENT PROSTHETIC AORTIC VALVE OPEN W CARDIOPULMONARY BYPASS HOMOGRF/STENT N/A 09/21/2016 @REPLACE AORTIC VALVE, OPEN, W\CPB, W\PROSTHETIC VALVE (WRVU 41.32) performed by Alirio Hudson MD at [facility] MAIN OR Social History and Habits: [...] days, which prompted her to present to [facility]. She also endorses some intermittent retrosternal chest pain with exertion.She endorses some dizziness with exertion, but has not gotten faint or passed out. At [facility] she was noted to be afebrile, blood pressure 105/64, HR 120s, satting 95% on 2L NC. Labs from [facility] are below, of note she had [...] 89/59, which prompted the transfer to us. [facility] labs: CBC - Hgb 10.5 CMP - Cr 1.1 BNP 86151 HsTrop 1358 Lactate 1.6 D-dimer 1183 Interval History Patient was admitted to [facility] due to concern on low BP [...] Klaudia Reid MD Internal Medicine PGY-1 Pager [phone], M1-S1 Service Associated attestation - Juan Luis Gonzalez MD - 05/08/2023 10:00 PM EDT Cardiology Attending Addendum Active Hospital Problems Diagnosis Symptomatic severe aortic stenosis with low ejection fraction Heart failure with reduced ejection fraction due to heart valve disease Mild coronary artery disease by [facility] 11/09/2022 Hyperlipidemia, unspecified History of aortic [...] PCP: Magdalena Acosta MD PCP phone number: [phone] Date of Admission: 05/08/2023 ( Hospital Day 0 days ) Attending:Enrique Chua MD ID: Purnima Thacker is a 67 y.o. female w/ PMH of s/p bioprosthetic AVR in 2016 with recent concern for severe restenosis, HTN, HLD, mixed connective tissue disease, who presents in transfer from [facility] with worsening BONILLA and weight gain [...] four days, which promptedher to present to [facility]. She also endorses some intermittent retrosternal chest pain with exertion. She endorses some dizziness with exertion, but has not gotten faint or passed out. At [facility] she was noted to be afebrile, blood pressure 105/64, HR 120s, satting 95% on 2L NC. Labs from [facility] are below, of note she had [...] 89/59, which prompted the transfer to us. [facility] labs: CBC - Hgb 10.5 CMP - Cr 1.1 BNP 59414 HsTrop 1358 Lactate 1.6 D-dimer 1183 Vasoactive [...] tissue disease, who [facility] B[facility] and weight gain concerning [...] #Routine Diet: Daily Healthy Menu Choices/Cardiac diet ([facility]-Diet) DVT Prophylaxis: heparin gtt [...] to the planned procedure. Hand Hygiene: The dog raiser did perform hand hygiene prior to arterial [...] Successful arterial line placement. Crispin Timmons MD Lamination Machine Operator Associated attestation - Onelia Schwartz MD - [...] (flow was non-pulsatile) and appearance of blood. Guthrie-Marily catheter was placed and locked at 55 [...] discharge to home with family/friend support and [facility], pt will also have FWW delivered to her prior to her d/c. Needs for Transition of Care: Plan for discharge is: Home w/ Services Outpatient Agency/Support Group Needs: Homecare agency Home Health Services: Physical Therapy, Occupational Therapy Agency Referrals & Follow-up Care: Contact information for follow-up [facility] H[facility], [place] [address] [place] [address] Cardiac Rehab, [facility] [address] [place] [address] [place] [id number] [facility], [place] [address] [place] [address] Transportation: family or friend will provide *Brother [...] Type: *No Product type* / Secondary Insurance: Adomik MD Prescription Coverage: Yes This plan was formulated with input from patient, family (please identify family/friend involved ifapplicable) and team. All are in agreement with plan. Aliza Martino MSN-Ed, RN ACM automotive upholsterer Office of Care Management Pager #[phone] * Plan of Care - Favian Mckeon [...] Type: *No Product type* / Secondary Insurance: [employer] [facility] [place] Last Physical Therapy Recommendation: (Home with assist from Brother; Friend arriving Tues) with walker, front wheeled Last Occupational Therapy Recommendation: swing bed rehabilitation facility, [facility] facility (vs home with support for IADLs) with walker, front wheeled, shower chair Plan for discharge is: Home w/ Services Outpatient Agency/Support Group Needs: Homecare agency Home Health Services: Physical Therapy, Occupational Therapy Agency Referrals: I have met with the patient to: discuss discharge planning needs. describing our affiliations within the [facility] and educate about their right to choose where referrals are sent. provide a list of Home Health Agencies / Durable Medical Equipment vendors which serve their preferred geographic area. They have requested referrals to: [facility] [address] [place] [id number] [facility] @ [facility] [place], [place] Note routed to a Cardiac Nurse who will communicate referrals to facilities and provide any required information. Transportation: family or friend will provide *Brother Raymond on Tuesday 05/22 at 1000 Barriers to discharge: Does not have home 22/02 assist available until tomorrow Tuesday 05/22 Plan going forward: Discharge home into the 22/02 home care of brother Raymond with [facility] and [facility] PT/OT services on Tuesday 05/22 [...] Attending: All Staff: Staff Role Juanita Almaguer Brick Unloader Tender Laure Ricks PA Physician Race Starter Magdalena Rodriguez school psychology specialist Nurse Consuelo Espinoza school psychology specialist Nurse Post-operative diagnosis/Indication: Right pleural effusion Name [...] Type: *No Product type* / Secondary Insurance: [facility] [place] Last Physical Therapy Recommendation: [facility] facility, swing bed rehabilitation facility with to be determined Last Occupational Therapy Recommendation: with Plan for discharge is: Long-Term Facility / Swing Outpatient Agency/Support Group Needs: None Agency Referrals: Based on discussions with the multi-disciplinary healthcare team, the patient would benefit from SNF / Swing level of care at discharge. I have met with the patient to: discuss discharge planning needs. provide the [facility], Office of Care Management letter from the Account Associate pertaining to rehab referrals. provide a letter describing our affiliations within the [facility] and educate about their right to choose where referrals are sent. provide the CMS Star Quality Rating handout. review the different levels of rehab including SNF, swing, and acute. provide a list of facilities within their preferred geographic area. request that they provide at least three choices for referral. They have requested referrals to: [facility] [address] [place] [address] [facility] ([facility]) [address] [place] [address] (Accepts pts only after exhausting all other local SNF options) [facility] (Swing) ([facility]) [address] [place] [address] PHONE: [phone] FAX: [phone] [facility] ([facility]) ([facility]) [address] [place] [address] PHONE: [phone] FAX: [phone] Note routed to a Cardiac Nurse who will communicate referrals to facilities and [...] lowest/locked position, personal items within reach, call monslave within reach CARE PLAN GOAL OUTCOME EVALUATION: [...] Crenshaw RN - 05/17/2023 10:25 AM EDT [facility] CARDIAC REHABILITATION Purnima Thacker was seen today regarding participation in the outpatient Phase 2 Cardiac Rehabilitation at [facility]. The patient agrees to a referral [...] from the original note were not included. [facility] NEPHROLOGY/HYPERTENSION CONSULT NOTE PATIENT: Purnima Thacker : [...] in her course. She ultimately underwent a hutfr-tj-jmkph procedure on and tolerated it well (see [...] 1423 05/12/23 1105 PHART 7.39 7.37 7.34* ZRO4AXM 33* 36 42 PO2ART 101 102 73* OPC3XLS 19.5* 20.4 22.1 LACTATEVEN 1.5 1.8 2.8* DPC8FAN 40 40 40 PFRATIOART2 252 255 182 VBG (Venous Blood Gas) Recent Labs 05/12/23 1557 05/12/23 1423 05/12/23 1105 LACTATEVEN 1.5 1.8 2.8* Mixed Venous Sat Recent Labs 05/12/23 1425 05/12/23 0508 05/12/23 0321 [id number] 59.9 30.7 32.7 LFT's: Recent Labs 05/14/23 0110 05/13/23 0115 05/12/23 0600 BILITOT 0.4 0.5 0.9 BILIDIR -- 0.3 -- ALBUMIN 3.6 3.0* 3.5 ALKPHOS 86 85 100 ALT 437* 903* 1,174* AST 319* 792* 1,435* No results found for: UPROTCREAT No results found for: TPROTEINPEP, ALBELECT No results found for: MICROALBUR, [id number] No results found for: HA1C Lab Results Component Value Date CALCIUM 8.5 05/14/2023 PHOS 4.7 (H) 05/08/2023 No results found for: 25OHVITD MICROBIOLOGY: ProcedureComponentValueUnitsDate/TimeUrine culture [[id number]]Collected: 05/11/23 1922Lab Status: Final resultSpecimen: Clean Catch [...] consulted for assessment if this patient needs HOURLY CAREGIVER. Atthis time, we can likely hold off on HOURLY CAREGIVER. Her volume status appears sufficient and her metabolic kanwal angements with mild acidosis is not too profound. Patient does not have significant uremic symptoms. We can hold off for today, but the patient is a high risk candidate for needing HOURLY CAREGIVER in future daysespecially if her Cr curve trends the direction it is for the next several days. S/p Yffvc-tt-Bfpvy TF TAVR: Management per cardiology. On milrinone gtt. PLAN: - Please obtain following diagnostics: renal US, urinalysis, urine prot/Cr ratio, urine albumin/Cr ratio, CK, uric acid, serum osmol, daily VBGs - No acute indications for HOURLY CAREGIVER/dialysis. We will keep close eye on Cr trend, volume status, and metabolics to ensure patient still does not need HOURLY CAREGIVER as she ensues intrinsic renal recovery - [...] M.H.Katherine., M.A. PGY-V Nephrology-Hypertension Fellow Page # [phone] [facility] [address] 2nd floor, Stock Replenisher [address] [place] [address] * Care Management - Mario Alberto Olmos [...] for a TAVR at 730. Returned to [facility] at 0945. Was intubated in the laborer turkey farm due to agitation. Maintained bedrest for 5 [...] Operative Note Patient Name: Purnima Thacker : [id number] MR#: [id number] Case Date: 05/12/2023 Surgeon: Surgeon(s) and Role: [...] procedure Note: Patient Name: Purnima Thacker : [id number] MR#: [id number] Case Date: 05/12/2023 Operators Surgeon: Surgeon(s) and [...] main with 4.0 x 30 mm Resolute Stanton Drug Eluting Stent Perclose x1 + Angio-seal 8 Fr x1, RFA Manual pressure, LFA Manual pressure, LFV Endotracheal intubation (performed by cardiac anesthesia) Preliminary findings: Successful right transfemoral TAVR Vktju-ii-Rmlys with a 23 mm Lai 3 THV. [...] MD, M.Sc. Structural Heart Disease Fellow Pager :[phone] Antelmo Sharma MD Pager [phone] * Op Note - Alirio Hudson MD - 05/12/2023 7:37 AM EDT Preop Diagnosis: Severe aortic stenosis, symptomatic. Postop Diagnosis: Same. Procedure: Transfemoral TAVR procedure with 23mm valve. Surgeon: Alirio Hudson M.D. Bell Hole Digger: Danny CULP Procedure: The patient was taken to the laborer turkey farm. The patient had monitored anesthesia care. 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 [place] [address] [place] [address] STRUCTURAL HEART DISEASE CONSULTATION NOTE PRIMARY CARE [...] who had been referred for possible TAVR ebbpi-zw-oituk evaluation. Her primary symptoms are of dyspnea [...] Ms. Thacker is originally from [facility]. 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 PROBLEM LIST: Patient Active Problem List Diagnosis Symptomatic severe aortic stenosis with low ejection fraction Mild coronary artery disease by [facility] 11/09/2022 Heart failure with reduced ejection [...] hour(s)) Lactate, whole blood, send to lab ([facility]) Result Value Ref Range Lactate WB 1.8 [...] leads Confirmed by MD Harshil, Enrique Bell ([id number]) on 05/10/2023 8:11:46 AM Assessment and Plan: [...] Antelmo Sharma MD Structural Heart Disease Pager [phone] * Plan of Care - Sarahi Nice RN - 05/10/2023 3:55 AM Bin: VALDO Note and Care Plan Sarahi Nice RN assumed care of pt at time of their arrival to room 362 from [facility]. Pt voices shortness of breath at [...] listening utilized Taken 05/08/20231999 by Alivia Kauffman shrimp trawler/Support System Care: self-care encouraged support provided Problem: [...] Manage Obstructive Sleep Apnea Flowsheets (Taken 05/09/2023 8647) NPPV/CPAP Maintenance: home PAP equipment/settings used * Initial Assessments - Alie Bradshaw RN - 05/09/2023 3:42 PM EDT Office of Care Management Initial Assessment Alie Bradshaw RN reviewed record and discussed patient with Care Team. Source of Information: Team, bedside nurse, medical record, and Patient Introduced self/reviewed role; services accepted. Admitted From: Transfer from another hospital Location: admitted from [facility] Reason for Hospitalization: Critical aortic stenosis, causing symptoms Past medical History: Past Medical History: Diagnosis Date Anemia Hospitalizations Within the Past 30 Days: no previous admission in last 30 days Current Decision-Making Capacity: Self If AD's have not been completed the following surrogate would be surrogate decision maker per [place] surrogate decision making law. (Only good for 180 days) Any patient receiving care in [place] must abide by [place] law. The hierarchy for surrogate decision making [...] The agent with financial power of commercial litigation attorney or a conservator appointed in accordance [...] DME: none Home Address confirmed as: [address] [address] Social & Family Supports: All names listed [...] Type: *No Product type* / Secondary Insurance: [employer] [facility] [place] ONLY if patient has Medicare A&B - Does this patient have secondary insurance?: Yes ; Prescription Coverage: Yes Preferred Pharmacy: updated to [facility] Status: Patient is a : No Primary Care Provider confirmed: Magdalena Acosta MD [phone] Patient/Caregiver Goals of Treatment: Potential Needs for [...] transition of care planning. Alie Bradshaw RN, Pager-[phone] * Plan of Care - Emily Lucero RN - 05/08/2023 2:54 PM EDT OUTCOME EVALUATION NOTE: OUTCOME SUMMARY: Pt arrived from [facility]. A&O, no c/o pain or SOB. [...] PM EDT Office Visit Dermatology at [address] [place] [phone] Marek Bonilla MD [address] [place] [address] 06/05/2024 11:30 AM EST Office [place] [phone] Magdalena Peralta MD [facility] [place] [address] Scheduled Referrals Name Type Priority Associated Diagnoses [...] Heart Cath W/Inj L Ventriculography, Img S&I (63887) 05/12/2023 7:37 AM EDT Aortic valve stenosis, [...] DOPP (07/08/2023 12:15 PM EST) EF 20 HEARTCost Effective Data SYSTEM Anatomical Region Laterality Modality Cardiac Other 07/08/2023 10:3 1 AM EST Narrative 07/08/2023 12:26 PM EST [address] [id number] ? Echocardiogram Report Name: PURNIMA THACKER ?Study Date: 07/08/2023 10:31 AMBP: 118/60 mmHg ? Patient Location: : 1955 ? Height: 155 cm ? Account: [id number] Age: 67 yrs ? Weight: 74 kg Gender: Female ?BSA: 1.7 m2 Ordering Physician: ALIRIO HUDSON Referring Physician: VINOD JUÁREZ Performed By: Felicia Norris RODOLFO Reason For Study: S/P TAVR Exam Location: [facility]. Interpretation Summary Left ventricular systolic function [...] no significant change (post-procedure). Procedure Limited - 28136. Doppler - 85185. Color Doppler - 51259. Satisfactory quality. This study is limited because [...] Note Lee Kincaid MD - 07/08/2023 [address] [id number] Echocardiogram Report Name: PURNIMA THACKER Study Date: 0:31 AMBP: 118/60 mmHg Patient Location: : 1955 Height: 155 cm Account: [id number] Age: 67 yrs Weight: 74 kg Gender: Female BSA: 1.7 m2 Ordering Physician: ALIRIO HUDSON Referring Physician: VINOD JUÁREZ Performed By: Felicia Norris RDCS Reason For Study: S/P TAVR Exam Location: [facility]. Interpretation Summary Left ventricular systolic function [...] is nosignificant change (post-procedure). Procedure Limited - 36399. Doppler - 65821. Color Doppler - 96836. Satisfactoryquality. This study is limited because of [...] Glucose Lvl 93 65 - 199 mg/dL [facility] Comment:Diabetes: >=200 mg/d L plus symptoms BUN 19(H) 8 - 18 mg/dL [facility] Creatinine 0.81 0.70 - 1.20 mg/dL [facility] Sodium 142 135 - 145 mmol/L [facility] Potassium 3.8 3.5 - 5.0 mmol/L [facility] Comment: Please note: ??Patients with WBC >100,000 may have falsely elevated Potassium levels. ??For accurate Potassium quantification in these patients send serum separator tube (gold top) for subsequent determinations. ??Contact the Clinical Chemistry Laboratory if there are any questions. Chloride 104 98 - 107 mmol/L [facility] CO2 26 22 - 31 mmol/L [facility] Anion Gap 12 5 - 15 mmol/L [facility] Calcium 10.2 8.5 - 10.5 mg/dL [facility] Total Protein 7.4 6.1 - 8.0 g/dL [facility] Albumin 4.1 3.2 - 5.2 g/dL [facility] AST 24 0 - 30 unit/L [facility] ALT 12 0 - 30 unit/L [facility] Alk Phos 93 35 - 105 unit/L [facility] Total Bilirubin 0.3 0.2 - 1.3 mg/dL [facility] Estimated GFR 80 >=60 mL/min/1. 73 m?? [facility] Comment: This patient's estimated GFR [...] Lab Alirio Hudson MD CHEMISTRY ORDERABLE S [facility] [place] [address] * (ABNORMAL) Basic Metabolic Panel (non-fasting) (05/22/2023 3:57 AM EDT) Glucose Lvl 88 65 - 199 mg/dL [facility] Comment:Diabetes: >=200 mg/d L plus symptoms BUN 21(H) 8 - 18 mg/dL [facility] Creatinine 0.69(L) 0.70 - 1.20 mg/dL [facility] Sodium 136 135 - 145 mmol/L [facility] Potassium 3.6 3.5 - 5.0 mmol/L [facility] Comment: Please note: ??Patients with WBC >100,000 may have falsely elevated Potassium levels. ??For accurate Potassium quantification in these patients send serum separator tube (gold top) for subsequent determinations. ??Contact the Clinical Chemistry Laboratory if there are any questions. Chloride 102 98 - 107 mmol/L [facility] CO2 23 22 - 31 mmol/L [facility] Anion Gap 11 5 - 15 mmol/L [facility] Calcium 8.6 8.5 - 10.5 mg/dL [facility] Estimated GFR 95 >=60 mL/min/1. 73 m?? [facility] Comment: This patient's estimated GFR [...] Lab Mara Serrano APRN CHEMISTRY ORDERABL ES [facility] [place] [address] * (ABNORMAL) Basic Metabolic Panel (non-fasting) (05/21/2023 5:06 AM EDT) Glucose Lvl 87 65 - 199 mg/dL [facility] Comment:Diabetes: >=200 mg/d L plus symptoms BUN 25(H) 8 - 18 mg/dL [facility] Creatinine 0.84 0.70 - 1.20 mg/dL [facility] Sodium 136 135 - 145 mmol/L [facility] Potassium 3.6 3.5 - 5.0 mmol/L [facility] Comment: Please note: ??Patients with WBC >100,000 may have falsely elevated Potassium levels. ??For accurate Potassium quantification in these patients send serum separator tube (gold top) for subsequent determinations. ??Contact the Clinical Chemistry Laboratory if there are any questions. Chloride 102 98 - 107 mmol/L [facility] CO2 26 22 - 31 mmol/L [facility] Anion Gap 8 5 - 15 mmol/L [facility] Calcium 8.9 8.5 - 10.5 mg/dL [facility] Estimated GFR 76 >=60 mL/min/1. 73 m?? [facility] Comment: This patient's estimated GFR [...] Lab Mara Serrano ANURAG CHEMISTRY ORDERABL ES [facility] [place] [address] * Lavender Tube HOLD (05/20/2023 2:52 AM EDT) Pathologist [facility] Lavender Hold Sample in lab. [facility] Blood Venous Draw / Unknown 05/20/2023 2:52 AM EDT 05/20/2023 3:04 AM EDT Mara Serrano APRN HEMATOLOGY ORDERAB LES [facility] [place] [address] * (ABNORMAL) Basic Metabolic Panel (non-fasting) (05/20/2023 2:52 AM EDT) [facility] Glucose Lvl 152 65 - 199 mg/dL [facility] Comment:Diabetes: >=200 mg/d L plus symptoms BUN 33(H) 8 - 18 mg/dL [facility] Creatinine 0.82 0.70 - 1.20 mg/dL [facility] Sodium 137 135 - 145 mmol/L [facility] Potassium 3.7 3.5 - 5.0 mmol/L [facility] Comment: Please note: ??Patients with WBC >100,000 may have falsely elevated Potassium levels. ??For accurate Potassium quantification in these patients send serum separator tube (gold top) for subsequent determinations. ??Contact the Clinical Chemistry Laboratory if there are any questions. Chloride 99 98 - 107 mmol/L [facility] CO2 22 22 - 31 mmol/L [facility] Anion Gap 16(H) 5 - 15 mmol/L [facility] Calcium 9.0 8.5 - 10.5 mg/dL [facility] Estimated GFR 78 >=60 mL/min/1. 73 m?? [facility] Comment: This patient's estimated GFR [...] Agency Comment Spec In Lab Mara Thomasfield FRONT OFFICE AGENT CHEMISTRY ORDERABL ES Performing Organization Address [facility] Phone Number [facility] [place] [address] * (ABNORMAL) Potassium (05/20/2023 2:52 AM EDT) [facility] Potassium 3.4(L) 3.5 - 5.0 mmol/L [facility] Comment: Please note: ??Patients with [...] APRN CHEMISTRY ORDERABL ES Performing Organization Address [facility] Phone Number [facility] [place] [address] * XR Chest PA & Lateral (Generic) [...] who have questions please contact the health post acute care nurse practitioner that requested your imaging first. ? Narrative [...] patients who have questions please contactthe health post acute care nurse practitioner that requested your imaging first. Alirio Hudson MD IMG DX ORDERABLES * (ABNORMAL) Basic Metabolic Panel (non-fasting) (05/19/2023 5:49 AM EDT) Glucose Lvl 93 65 - 199 mg/dL [facility] Comment:Diabetes: >=200 mg/d L plus symptoms BUN 45(H) 8 - 18 mg/dL [facility] Creatinine 1.02 0.70 - 1.20 mg/dL [facility] Sodium 138 135 - 145 mmol/L [facility] Potassium 3.9 3.5 - 5.0 mmol/L [facility] Comment: Please note: ??Patients with WBC >100,000 may have falsely elevated Potassium levels. ??For accurate Potassium quantification in these patients send serum separator tube (gold top) for subsequent determinations. ??Contact the Clinical Chemistry Laboratory if there are any questions. Chloride 102 98 - 107 mmol/L [facility] CO2 26 22 - 31 mmol/L [facility] Anion Gap 10 5 - 15 mmol/L [facility] Calcium 9.7 8.5 - 10.5 mg/dL [facility] Estimated GFR 60 >=60 mL/min/1. 73 m?? [facility] Comment: This patient's estimated GFR [...] Agency Comment Spec In Lab Mara Serrano FRONT OFFICE AGENT CHEMISTRY ORDERABL ES [facility] [place] [address] * IR Chest Tube Placement Right (05/18/2023 [...] Laure Ricks PA-C Attending of record: Kristopher Salgdao MD 05/18/2023 Alirio Hudson MD IMG IR ORDERABLES * (ABNORMAL) Basic Metabolic Panel (non-fasting) (05/18/2023 2:54 AM EDT) Glucose Lvl 95 65 - 199 mg/dL [facility] Comment:Diabetes: >=200 mg/d L plus symptoms BUN 71(H) 8 - 18 mg/dL [facility] Comment:result rechecked-JSJ Creatinine 1.64(H) 0.70 - 1.20 mg/dL [facility] Comment:result rechecked-JSJ Sodium 137 135 - 145 mmol/L [facility] Potassium 3.7 3.5 - 5.0 mmol/L [facility] Comment: Please note: ??Patients with WBC >100,000 may have falsely elevated Potassium levels. ??For accurate Potassium quantification in these patients send serum separator tube (gold top) for subsequent determinations. ??Contact the Clinical Chemistry Laboratory if there are any questions. Chloride 100 98 - 107 mmol/L [facility] CO2 24 22 - 31 mmol/L [facility] Anion Gap 13 5 - 15 mmol/L [facility] Calcium 9.7 8.5 - 10.5 mg/dL [facility] Estimated GFR 34(L) >=60 mL/min/1. 73 m?? [facility] Comment: This patient's estimated GFR [...] Agency Comment Spec In Lab Mara Serrano FRONT OFFICE AGENT CHEMISTRY ORDERABL ES [facility] [place] [address] * XR Chest PA & Lateral (Generic) [...] who have questions please contact the health post acute care nurse practitioner that requested your imaging first. ? Narrative [...] patients who have questions please contactthe health post acute care nurse practitioner that requested your imaging first. Alirio Hudson MD IMG DX ORDERABLES * (ABNORMAL) Comprehensive metabolic panel (non-fasting) (05/17/2023 4:35 AM EDT) Glucose Lvl 89 65 - 199 mg/dL [facility] Comment:Diabetes: >=200 mg/d L plus symptoms BUN 97(H) 8 - 18 mg/dL [facility] Creatinine 2.97(H) 0.70 - 1.20 mg/dL [facility] Comment:result rechecked-JSJc Sodium 135 135 - 145 mmol/L [facility] Potassium 4.1 3.5 - 5.0 mmol/L [facility] Comment: Please note: ??Patients with WBC >100,000 may have falsely elevated Potassium levels. ??For accurate Potassium quantification in these patients send serum separator tube (gold top) for subsequent determinations. ??Contact the Clinical Chemistry Laboratory if there are any questions. Chloride 97(L) 98 - 107 mmol/L [facility] CO2 22 22 - 31 mmol/L [facility] Anion Gap 16(H) 5 - 15 mmol/L [facility] Calcium 9.6 8.5 - 10.5 mg/dL [facility] Total Protein 6.5 6.1 - 8.0 g/dL [facility] Albumin 3.7 3.2 - 5.2 g/dL [facility] AST 58(H) 0 - 30 unit/L [facility] ALT 66(H) 0 - 30 unit/L [facility] Alk Phos 86 35 - 105 unit/L [facility] Total Bilirubin 0.6 0.2 - 1.3 mg/dL [facility] Estimated GFR 17(L) >=60 mL/min/1. 73 m?? [facility] Comment: This patient's estimated GFR [...] Lab Alirio Hudson MD CHEMISTRY ORDERABLE S [facility] [place] [address] * Potassium (05/16/2023 11:15 PM EDT) Pathologist [facility] Potassium 3.7 3.5 - 5.0 mmol/L [facility] Comment: Please note: ??Patients with [...] Lab Alirio Hudson MD CHEMISTRY ORDERABLE S [facility] [place] [address] * Magnesium (05/16/2023 5:22 PM EDT) [facility] Magnesium 0.96 0.69 - 1.07 mmol/L [facility] Blood 05/16/2023 5:22 PM EDT 05/16/2023 5:27 PM EDT Narrative Resulting Agency Comment Spec In Lab Alirio Hudson MD CHEMISTRY ORDERABLE S Performing Organization Address City/[facility]/ZIP Co de Phone Number [facility] [place] [address] * (ABNORMAL) Basic Metabolic Panel (non-fasting) (05/16/2023 5:22 PM EDT) Pathologist [facility] Glucose Lvl 106 65 - 199 mg/dL [facility] Comment:Diabetes: >=200 mg/d L plus symptoms BUN 103(H) 8 - 18 mg/dL [facility] Creatinine 3.91(H) 0.70 - 1.20 mg/dL [facility] Comment:result rechecked-imm Sodium 132(L) 135 - 145 mmol/L [facility] Potassium 3.6 3.5 - 5.0 mmol/L [facility] Comment: Please note: ??Patients with WBC >100,000 may have falsely elevated Potassium levels. ??For accurate Potassium quantification in these patients send serum separator tube (gold top) for subsequent determinations. ??Contact the Clinical Chemistry Laboratory if there are any questions. Chloride 92(L) 98 - 107 mmol/L [facility] CO2 22 22 - 31 mmol/L [facility] Anion Gap 18(H) 5 - 15 mmol/L [facility] Calcium 9.7 8.5 - 10.5 mg/dL [facility] Estimated GFR 12(L) >=60 mL/min/1. 73 m?? [facility] Comment: This patient's estimated GFR [...] Lab Alirio Hudson MD CHEMISTRY ORDERABLE S [facility] [place] [address] * (ABNORMAL) Potassium (05/16/2023 11:43 AM EDT) Potassium 3.3(L) 3.5 - 5.0 mmol/L [facility] Comment: Please note: ??Patients with [...] Lab Alirio Hudson MD CHEMISTRY ORDERABLE S [facility] [place] [address] * (ABNORMAL) Ferritin (05/16/2023 4:41 AM EDT) Pathologist [facility] Ferritin 1,813(H) 30 - 400 ng/mL [facility] Comment: Pediatric reference ranges not verified at [facility], interpret with caution. Reference ranges for females greater than 50 years of age approach values for men, i.e., 30-400 ng/mL. Blood 05/16/2023 4:41 AM EDT 05/16/2023 4:54 AM EDT Narrative Resulting Agency Comment Spec In Lab Kristopher Ayoub MD CHEMISTRY ORDERABLES [facility] [place] [address] * (ABNORMAL) PTH (05/16/2023 4:41 AM EDT) [facility] PTH 120(H) 15 - 65 pg/mL [facility] Blood 05/16/2023 4:41 AM EDT 05/16/2023 4:54 AM EDT Narrative Resulting Agency Comment Spec In Lab Kristopher Ayoub MD CHEMISTRY ORDERABLES [facility] [place] [address] * Vitamin D, 25-Hydroxy (05/16/2023 4:41 AM EDT) Pathologist [facility] 25-OH Vit D Total 33 21 - 100 ng/mL [facility] 25-OH Vit D Interp Sufficient [facility] Blood 05/16/2023 4:41 AM EDT 05/16/2023 4:54 AM EDT Narrative Resulting Agency Comment Spec In Lab Kristopher Ayoub MD CHEMISTRY ORDERABLES [facility] [place] [address] * (ABNORMAL) Blood Gas Venous ([facility]) (05/16/2023 4:22 AM EDT) pH Mike 7.41 7.32 - 7.42 [facility] pCO2 Mike 32(L) 41 - 51 mmHg [facility] pO2 Mike 73(H) 25 - 40 mmHg [facility] HCO3 Mike 19.6 mmol/L [facility] BE Mike -5.1 mmol/L [facility] Hgb Blood Gas 9.7(L) 11.7 - 15.5 g/dL [facility] O2HB Mike 92.8 % [facility] COHB Mike 0.1 % [facility] Comment: Nonsmokers: 0.5-1.5% COHB Smokers: Variable, but usually less than 10% Toxic: 20-30% COHB Lethal: Greater than 60% COHB METHB Mike 0.3 <=1.5 % [facility] Na Whole Blood 130(L) 135 - 145 mmol/L [facility] K Whole Blood 3.7 3.5 - 5.0 mmol/L [facility] Comment: Please note: Patients with WBC >100,000 may have falsely elevated Potassium levels. Contact the Clinical Chemistry Laboratory if there are any questions. ICa Whole Blood 1.15 1.15 - 1.33 mmol/L [facility] Comment: Note: ??Total bilirubin higher than 20 mg/dL may lead to falsely low ionized calcium. CL Whole Blood 95(L) 98 - 107 mmol/L [facility] Gluc Whole Bld 82 65 - 199 mg/dL [facility] Comment:Diabetes: >=200 mg/d L plus symptoms Lactate WB 1.1 0.5 - 2.2 mmol/L [facility] BGas Source Venous [facility] Blood Venous Draw / Unknown 05/16/2023 4:22 AM EDT 05/16/2023 4:31 AM EDT Narrative Resulting Agency Comment Spec In Lab Bonita TOBAR CHEMISTRY ORDERABLES [facility] [place] [address] * (ABNORMAL) Differential, Automated (05/16/2023 4:20 AM EDT) Neutrophils % 84.1 % [facility] Neutr Abs (ANC) 6.22(H) 1.70 - 6.10 x10(3)/[facility] Lymphocytes % 5.8 % [facility] Lymphocytes Abs 0.4(L) 0.9 - 3.2 x10(3)/[facility] Monocytes % 8.8 % [facility] Monocyte Abs 0.6 0.3 - 0.9 x10(3)/[facility] Eosinophils % 0.4 % [facility] Eosinophils Abs 0.0 0.0 - 0.4 x10(3)/[facility] Basophils % 0.0 % [facility] Basophils Abs 0.0 0.0 - 0.1 x10(3)/[facility] Immature Gran % 0.90 % [facility] Comment: Immature granulocytes(IG's)percentage and absolute count will include metamyelocytes, myelocytes, and promyelocytes. Blood smears from CBCs yielding IG's will be scanned manually for concordance. If this scan disagrees with the automated IG or if promyelocytes are noted, a manual differential will be performed. Amanda Gran Abs 0.07(H) 0.00 - 0.04 x10(3)/ L [facility] Blood 05/16/2023 4:20 AM EDT 05/16/2023 4:29 AM EDT Narrative Resulting Agency Comment Spec In Lab James Agustin MD HEMATOLOGY ORDER JODIE [facility] [place] [address] * (ABNORMAL) Hemogram (05/16/2023 4:20 AM EDT) WBC 7.4 4.0 - 9.5 x10(3)/[facility] RBC 2.40(L) 4.00 - 5.21 x10(6)/[facility] Hemoglobin 7.8(L) 11.7 - 15.5 g/dL [facility] Hematocrit 22.5(L) 35.7 - 45.8 % [facility] MCV 93.8 82.6 - 94.4 [facility] MCH 32.5(H) 27.1 - 32.0 pg [facility] MCHC 34.7 31.7 - 35.0 g/dL [facility] Platelets 120(L) 145 - 357 x10(3)/[facility]ORY RDWSD 42.9 37.0 - 46.0 [facility] RDWCV 12.9 11.5 - 14.1 % [facility] MPV 11.3 7.6 - 12.9 [facility] nRBC % Auto 0.7 % [facility] nRBC Abs Auto 0.050(H) 0.000 - 0.000 x10(3)/[facility] Blood 05/16/2023 4:20 AM EDT 05/16/2023 4:29 AM EDT Narrative Resulting Agency Comment Spec In Lab James Agustin MD HEMATOLOGY ORDER JODIE [facility] [place] [address] * (ABNORMAL) Basic Metabolic Panel (non-fasting) (05/16/2023 4:20 AM EDT) Glucose Lvl 89 65 - 199 mg/dL [facility] Comment:Diabetes: >=200 mg/d L plus symptoms BUN 108(H) 8 - 18 mg/dL [facility] Creatinine 4.74(H) 0.70 - 1.20 mg/dL [facility] Comment:result rechecked-OLIVA Sodium 132(L) 135 - 145 mmol/L [facility] Potassium 3.9 3.5 - 5.0 mmol/L [facility] Comment: Please note: ??Patients with WBC >100,000 may have falsely elevated Potassium levels. ??For accurate Potassium quantification in these patients send serum separator tube (gold top) for subsequent determinations. ??Contact the Clinical Chemistry Laboratory if there are any questions. Chloride 95(L) 98 - 107 mmol/L [facility] CO2 18(L) 22 - 31 mmol/L [facility] Anion Gap 19(H) 5 - 15 mmol/L [facility] Calcium 9.2 8.5 - 10.5 mg/dL [facility] Estimated GFR 10(L) >=60 mL/min/1. 73 m?? [facility] Comment: This patient's estimated GFR [...] MD CHEMISTRY ORDERABLE S Performing Organization Address City/[facility]/ZIP Co de Phone Number [facility] [place] [address] * (ABNORMAL) Iron and TIBC (05/16/2023 4:20 AM EDT) Pathologist [facility] Iron 31 30 - 150 mcg/dL [facility] TIBC 259 250 - 450 mcg/dL [facility] Iron Saturation 12(L) 20 - 50 % [facility] Blood 05/16/2023 4:20 AM EDT 05/16/2023 4:29 AM EDT Narrative Resulting Agency Comment Spec In Lab Kristopher Ayoub MD CHEMISTRY ORDERABLES Performing Organization Address [facility] Co de Phone Number [facility] [place] [address] * (ABNORMAL) Basic Metabolic Panel (non-fasting) (05/15/2023 12:50 AM EDT) [facility] Glucose Lvl 101 65 - 199 mg/dL [facility] Comment:Diabetes: >=200 mg/d L plus symptoms BUN 109(H) 8 - 18 mg/dL [facility] Creatinine 5.62(H) 0.70 - 1.20 mg/dL [facility] Comment:result rechecked-KS Sodium 131(L) 135 - 145 mmol/L [facility] Comment:result rechecked-KS Potassium 3.7 3.5 - 5.0 mmol/L [facility] Comment: result rechecked-KS Please note: ??Patients with WBC >100,000 may have falsely elevated Potassium levels. ??For accurate Potassium quantification in these patients send serum separator tube (gold top) for subsequent determinations. ??Contact the Clinical Chemistry Laboratory if there are any questions. Chloride 92(L) 98 - 107 mmol/L [facility] Comment:result rechecked-KS CO2 18(L) 22 - 31 mmol/L [facility] Comment:result rechecked-KS Anion Gap 21(H) 5 - 15 mmol/L [facility] Calcium 8.9 8.5 - 10.5 mg/dL [facility] Estimated GFR 8(L) >=60 mL/min/1. 73 m?? [facility] Comment: This patient's estimated GFR [...] Lab Alirio Hudson MD CHEMISTRY ORDERABLE S [facility] [place] [address] * (ABNORMAL) Hemogram (05/15/2023 12:50 AM EDT) WBC 9.1 4.0 - 9.5 x10(3)/[facility]ATORY RBC 2.19(L) 4.00 - 5.21 x10(6)/[facility] Hemoglobin 7.2(L) 11.7 - 15.5 g/dL [facility] Hematocrit 20.6(L) 35.7 - 45.8 % [facility] MCV 94.1 82.6 - 94.4 fL [facility] MCH 32.9(H) 27.1 - 32.0 pg [facility] MCHC 35.0 31.7 - 35.0 g/dL [facility] Platelets 109(L) 145 - 357 x10(3)/[facility]ORATORY RDWSD 43.6 37.0 - 46.0 fL [facility] RDWCV 12.9 11.5 - 14.1 % [facility] MPV 10.4 7.6 - 12.9 fL [facility] nRBC % Auto 2.1 % [facility] nRBC Abs Auto 0.190(H) 0.000 - 0.000 x10(3)/[facility] Blood 05/15/2023 12:5 0 AM EDT 05/15/2023 12:52 AM EDT Narrative Resulting Agency Comment Spec In Lab Alirio Hudson MD HEMATOLOGY ORDERABL ES [facility] [place] [address] * (ABNORMAL) BLOOD GAS 2 VENOUS (05/15/2023 12:49 AM EDT) pH Mike 7.33 7.32 - 7.42 [facility] pCO2 Mike 37(L) 41 - 51 mmHg [facility] pO2 Mike 34 25 - 40 mmHg [facility] HCO3 Mike 19.1 mmol/L [facility] BE Mike -6.8 mmol/L [facility] Hgb Blood Gas 10.8(L) 11.7 - 15.5 g/dL [facility] O2HB Mike 58.1 % [facility] COHB Mike 0.3 % [facility] Comment: Nonsmokers: 0.5-1.5% COHB Smokers: Variable, but usually less than 10% Toxic: 20-30% COHB Lethal: Greater than 60% COHB METHB Mike 0.6 <=1.5 % [facility] Na Whole Blood 136 135 - 145 mmol/L [facility] K Whole Blood 3.7 3.5 - 5.0 mmol/L [facility] Comment: Please note: Patients with WBC >100,000 may have falsely elevated Potassium levels. Contact the Clinical Chemistry Laboratory if there are any questions. ICa Whole Blood 1.12(L) 1.15 - 1.33 mmol/L [facility] Comment: Note: ??Total bilirubin higher than 20 mg/dL may lead to falsely low ionized calcium. CL Whole Blood 95(L) 98 - 107 mmol/L [facility] Gluc Whole Bld 101 65 - 199 mg/dL [facility] Comment:Diabetes: >=200 mg/d L plus symptoms Lactate WB 1.3 0.5 - 2.2 mmol/L [facility] Flow Mike 1.0 LPM [facility] BGas Source Venous [facility] Blood 05/15/2023 12:4 9 AM EDT 05/15/2023 12:49 AM EDT Alirio Hudson MD CHEMISTRY ORDERABLE S Performing Organization Address City/State/[facility] Co de Phone Number [facility] [place] [address] * US Retroperitoneal Complete (05/14/2023 3:53 PM [...] who have questions, please contact the health post acute care nurse practitioner that requested your imaging first. ? Hayden Robledo, Staff Physician Electronically Signed Final Report ?? 05/14/2023 04:39 pm Narrative 05/14/2023 4:39 PM EDT Renal ? (Signed Final 05/14/2023 04:39 pm) PATIENT INFO: ID #: ? [id number] ?: ??55 (67 yrs)(F) Name: ? PURNIMAMARIZA THACKER ?Visit Date: 05/14/2023 03:44 pm PERFORMED BY: Attending: ?Meena CULP, Hayden Stafford Resident: ? Nell CULP, Anand August Performed By: ? Consuelo Tello RDMS Referred By: ?ALIRIO HUDSON Location: ? [facility] SERVICE(S) PROVIDED: URETRO - Retroperitoneal Complete - [id number] ? [id number] INDICATIONS: [facility] COMPARISON: CT: Abdomen/Pelvis 05/11/23 RIGHT [...] 05/14/2023 04:39 pm) PATIENT INFO: ID #: [id number] : 55 (67 yrs)(F) Name: PURNIMA THACKER Visit Date: 05/14/2023 03:44 pm PERFORMED BY: Attending: Hayden Robledo MD Resident: Anand Camejo MD Performed By: Consuelo Tello RDMS Referred By: ALIRIO HUDSON Location: [facility] SERVICE(S) PROVIDED: URETRO - Retroperitoneal Complete - [id number] INDICATIONS: [facility] COMPARISON: CT: Abdomen/Pelvis 05/11/23 RIGHT [...] who have questions, please contact the health post acute care nurse practitioner that requested your imaging first. Hayden Robledo, Staff Physician Electronically Signed Final Report 05/14/2023 04:39 pm Alirio Hudson MD IMG US GEN ORDERABL ES * CK (05/14/2023 3:17 PM EDT) CK, Total 123 0 - 160 unit/L [facility] Blood 05/14/2023 3:17 PM EDT 05/14/2023 3:31 PM EDT Narrative Resulting Agency Comment Spec In Lab Alirio Hudson MD CHEMISTRY ORDERABLE S [facility] [place] [address] * (ABNORMAL) Uric acid (05/14/2023 3:17 PM EDT) Uric Acid 14.9(H) 2.5 - 6.5 mg/dL [facility] Blood 05/14/2023 3:17 PM EDT 05/14/2023 3:31 PM EDT Narrative Resulting Agency Comment Spec In Lab Alirio Hudson MD CHEMISTRY ORDERABLE S Performing Organization Address City/[facility]/ZIP Co de Phone Number [facility] [place] [address] * (ABNORMAL) Osmolality (05/14/2023 3:17 PM EDT) Osmolality 311(H) 275 - 295 mOsm/kg [facility] Blood 05/14/2023 3:17 PM EDT 05/14/2023 3:31 PM EDT Narrative Resulting Agency Comment Spec In Lab Alirio Hudson MD CHEMISTRY ORDERABLE S Performing Organization Address City/[facility]/ZIP Co de Phone Number [facility] [place] [address] * (ABNORMAL) Differential, Automated (05/14/2023 1:10 AM EDT) Neutrophils % 87.2 % [facility] Neutr Abs (ANC) 9.74(H) 1.70 - 6.10 x10(3)/[facility] LABORATORY Lymphocytes % 3.9 % [facility] Lymphocytes Abs 0.4(L) 0.9 - 3.2 x10(3)/[facility] LABORATORY Monocytes % 7.9 % [facility] Monocyte Abs 0.9 0.3 - 0.9 x10(3)/[facility]ORY Eosinophils % 0.0 % [facility] Eosinophils Abs 0.0 0.0 - 0.4 x10(3)/[facility] LABORATORY Basophils % 0.1 % [facility] Basophils Abs 0.0 0.0 - 0.1 x10(3)/[facility] LABORATORY Immature Gran % 0.90 % [facility] Comment: Immature granulocytes(IG's)percentage and absolute count will include metamyelocytes, myelocytes, and promyelocytes. Blood smears from CBCs yielding IG's will be scanned manually for concordance. If this scan disagrees with the automated IG or if promyelocytes are noted, a manual differential will be performed. Amanda Gran Abs 0.10(H) 0.00 - 0.04 x10(3)/[facility]ORY Blood 05/14/2023 1:10 AM EDT 05/14/2023 1:24 AM EDT Narrative Resulting Agency Comment Spec In Lab Bonita TOBAR HEMATOLOGY ORDERABLE S [facility] [place] [address] * (ABNORMAL) Hemogram (05/14/2023 1:10 AM EDT) WBC 11.2(H) 4.0 - 9.5 x10(3)/[facility]ORY RBC 2.19(L) 4.00 - 5.21 x10(6)/[facility] Hemoglobin 7.2(L) 11.7 - 15.5 g/dL [facility] Hematocrit 20.3(L) 35.7 - 45.8 % [facility] MCV 92.7 82.6 - 94.4 fL [facility] MCH 32.9(H) 27.1 - 32.0 pg [facility] MCHC 35.5(H) 31.7 - 35.0 g/dL [facility] Platelets 112(L) 145 - 357 x10(3)/[facility] LABORATORY RDWSD 41.4 37.0 - 46.0 [facility] LABORATORY RDWCV 12.5 11.5 - 14.1 % [facility] MPV 10.4 7.6 - 12.9 [facility] LABORATORY nRBC % Auto 1.5 % [facility] nRBC Abs Auto 0.170(H) 0.000 - 0.000 x10(3)/[facility] Blood 05/14/2023 1:10 AM EDT 05/14/2023 1:24 AM EDT Narrative Resulting Agency Comment Spec In Lab Bonita TOBAR HEMATOLOGY ORDERABLE S Performing Organization Address City/State/[facility] Co de Phone Number [facility] [place] [address] * (ABNORMAL) Comprehensive metabolic panel (non-fasting) (05/14/2023 1:10 AM EDT) Glucose Lvl 120 65 - 199 mg/dL [facility] Comment:Diabetes: >=200 mg/d L plus symptoms BUN 98(H) 8 - 18 mg/dL [facility] Creatinine 4.80(H) 0.70 - 1.20 mg/dL [facility] Comment:result rechecked-ssc Sodium 132(L) 135 - 145 mmol/L [facility] Potassium 4.1 3.5 - 5.0 mmol/L [facility] Comment: Please note: ??Patients with WBC >100,000 may have falsely elevated Potassium levels. ??For accurate Potassium quantification in these patients send serum separator tube (gold top) for subsequent determinations. ??Contact the Clinical Chemistry Laboratory if there are any questions. Chloride 94(L) 98 - 107 mmol/L [facility] CO2 18(L) 22 - 31 mmol/L [facility] Anion Gap 20(H) 5 - 15 mmol/L [facility] Calcium 8.5 8.5 - 10.5 mg/dL [facility] Total Protein 5.8(L) 6.1 - 8.0 g/dL [facility] Albumin 3.6 3.2 - 5.2 g/dL [facility] AST 319(H) 0 - 30 unit/L [facility] ALT 437(H) 0 - 30 unit/L [facility] Alk Phos 86 35 - 105 unit/L [facility] Total Bilirubin 0.4 0.2 - 1.3 mg/dL [facility] Estimated GFR 9(L) >=60 mL/min/1. 73 m?? [facility] Comment: This patient's estimated GFR [...] CHEMISTRY ORDERABLE S Performing Organization Address [facility]/ZIP Co de Phone Number [facility] [place] [address] * APTT (05/13/2023 10:15 AM EDT) PTT 27 25 - 37 sec [facility] Comment: The PTT is NOT appropriate for heparin monitoring. Use the Anti-Xa level for heparin monitoring (HEP UFH) or LMWH monitoring (HEP LMW). A PTT less than 37 seconds generally indicates adequate hemostasis. Blood 05/13/2023 10:1 5 AM EDT 05/13/2023 10:46 AM EDT Narrative Resulting Agency Comment Spec In Lab Alirio Hudson MD HEMATOLOGY ORDERABL ES Performing Organization Address [facility] Co de Phone Number [facility] [place] [address] * (ABNORMAL) Prothrombin Time (05/13/2023 10:15 AM EDT) PT 14.6(H) 9.4 - 12.5 sec [facility] INR 1.3 [facility] Comment: An INR [...] HEMATOLOGY ORDERABL ES Performing Organization Address [facility]/ZIP Co de Phone Number [facility] [place] [address] * EKG 12 Lead (05/13/2023 9:22 AM EDT) Ventricular rate 92 BPM MUSE SYSTEM Atrial Rate 92 BPM MUSE SYSTEM P-R Interval 140 ms MUSE SYSTEM QRS Duration 104 ms MUSE SYSTEM Q-T Interval 384 ms MUSE SYSTEM QTC Calculated (Bezet) 474 ms MUSE SYSTEM Calculated P [place] 33 degrees MUSE SYSTEM Calculated R [place] 41 degrees MUSE SYSTEM Calculated T [place] -35 degrees MUSE SYSTEM INTERPRETATION Sinus rhythm with frequent Premature ventricular complexes Septal infarct , age undetermined ST & T wave abnormality, consider lateral ischemia Abnormal ECG When compared with ECG of 12-MAY-2023 10:10, Premature ventricular complexes are now Present I personally reviewed the tracing and edited the fellows interpretation Confirmed by fellow MD Anitha, Carissa ([id number]) on 05/13/2023 3:25:30 PM Confirmed by Maxx Best ([id number]) on 05/13/2023 8:30:56 PM MUSE SYSTEM 05/13/2023 9:22 AM EDT 05/13/2023 8:30 PM EDT Alirio Hudson MD ECG ORDERABLES MUSE SYSTEM * (ABNORMAL) Differential, Automated (05/13/2023 1:15 AM EDT) Pathologist [facility] Neutrophils % 88.1 % [facility] Neutr Abs (ANC) 7.62(H) 1.70 - 6.10 x10(3)/mc L [facility] Lymphocytes % 3.1 % [facility] Lymphocytes Abs 0.3(L) 0.9 - 3.2 x10(3)/mc L [facility] Monocytes % 7.9 % [facility] Monocyte Abs 0.7 0.3 - 0.9 x10(3)/mc L [facility] Eosinophils % 0.0 % [facility] Eosinophils Abs 0.0 0.0 - 0.4 x10(3)/mc L [facility] Basophils % 0.1 % [facility] Basophils Abs 0.0 0.0 - 0.1 x10(3)/mc L [facility] Immature Gran % 0.80 % [facility] Comment: Immature granulocytes(IG's)percentage and absolute count will include metamyelocytes, myelocytes, and promyelocytes. Blood smears from CBCs yielding IG's will be scanned manually for concordance. If this scan disagrees with the automated IG or if promyelocytes are noted, a manual differential will be performed. Amanda Gran Abs 0.07(H) 0.00 - 0.04 x10(3)/ L [facility] Blood 05/13/2023 1:15 AM EDT 05/13/2023 1:29 AM EDT Narrative Resulting Agency Comment Spec In Lab Lorri TOBAR HEMATOLOGY ORDERABLE S [facility] [place] [address] * (ABNORMAL) Hemogram (05/13/2023 1:15 AM EDT) WBC 8.6 4.0 - 9.5 x10(3)/[facility] RBC 2.37(L) 4.00 - 5.21 x10(6)/[facility] Hemoglobin 7.8(L) 11.7 - 15.5 g/dL [facility] Hematocrit 22.2(L) 35.7 - 45.8 % [facility] MCV 93.7 82.6 - 94.4 fL [facility] MCH 32.9(H) 27.1 - 32.0 pg [facility] MCHC 35.1(H) 31.7 - 35.0 g/dL [facility] Platelets 130(L) 145 - 357 x10(3)/[facility]ORY RDWSD 41.7 37.0 - 46.0 [facility]ORY RDWCV 12.5 11.5 - 14.1 % [facility] MPV 10.2 7.6 - 12.9 [facility] nRBC % Auto 0.5 % [facility] nRBC Abs Auto 0.040(H) 0.000 - 0.000 x10(3)/mcL [facility] Blood 05/13/2023 1:15 AM EDT 05/13/2023 1:29 AM EDT Narrative Resulting Agency Comment Spec In Lab Lorri TOBAR HEMATOLOGY ORDERABLE S Performing Organization Address City/[facility]/ZIP Co de Phone Number [facility] [place] [address] * (ABNORMAL) Hepatic Function Panel (05/13/2023 1:15 AM EDT) Total Protein 5.5(L) 6.1 - 8.0 g/dL [facility] Albumin 3.0(L) 3.2 - 5.2 g/dL [facility] AST 792(H) 0 - 30 unit/L [facility] ALT 903(H) 0 - 30 unit/L [facility] Alk Phos 85 35 - 105 unit/L [facility] Total Bilirubin 0.5 0.2 - 1.3 mg/dL [facility] Bili, Direct 0.3 0.0 - 0.3 mg/dL [facility] Blood 05/13/2023 1:15 AM EDT 05/13/2023 1:29 AM EDT Narrative Resulting Agency Comment Spec In Lab Alirio Hudson MD CHEMISTRY ORDERABLE S Performing Organization Address City/[facility]/ZIP Co de Phone Number [facility] [place] [address] * (ABNORMAL) Basic Metabolic Panel (non-fasting) (05/13/2023 1:15 AM EDT) Glucose Lvl 107 65 - 199 mg/dL [facility] Comment:Diabetes: >=200 mg/d L plus symptoms BUN 82(H) 8 - 18 mg/dL [facility] Creatinine 3.15(H) 0.70 - 1.20 mg/dL [facility] Comment:result rechecked-JSJ Sodium 132(L) 135 - 145 mmol/L [facility] Potassium 3.8 3.5 - 5.0 mmol/L [facility] Comment: Please note: ??Patients with WBC >100,000 may have falsely elevated Potassium levels. ??For accurate Potassium quantification in these patients send serum separator tube (gold top) for subsequent determinations. ??Contact the Clinical Chemistry Laboratory if there are any questions. Chloride 95(L) 98 - 107 mmol/L [facility] CO2 20(L) 22 - 31 mmol/L [facility] Anion Gap 17(H) 5 - 15 mmol/L [facility] Calcium 8.3(L) 8.5 - 10.5 mg/dL [facility] Estimated GFR 16(L) >=60 mL/min/1. 73 m?? [facility] Comment: This patient's estimated GFR [...] Lab Alirio Hudson MD CHEMISTRY ORDERABLE S [facility] [place] [address] * (ABNORMAL) BLOOD GAS 2 ARTERIAL (05/12/2023 3:57 PM EDT) Pathologist [facility] pH Art 7.39 7.35 - 7.45 [facility] pCO2 Art 33(L) 35 - 45 mmHg [facility] pO2 Art 101 85 - 104 mmHg [facility] HCO3 Art 19.5(L) 20.0 - 26.0 mmol/L [facility] BE Art -5.5(L) -3.0 - 3.0 mmol/L [facility] Hgb Blood Gas 9.8(L) 11.7 - 15.5 g/dL [facility] O2HB Art 95.2 94.0 - 97.0 % [facility] COHB Art 0.2 % [facility] Comment: Nonsmokers: 0.5-1.5% COHB Smokers: Variable, but usually less than 10% Toxic: 20-30% COHB Lethal: Greater than 60% COHB METHB Art 0.8 <=1.5 % [facility] Na Whole Blood 129(L) 135 - 145 mmol/L [facility] K Whole Blood 3.8 3.5 - 5.0 mmol/L [facility] Comment: Please note: Patients with WBC >100,000 may have falsely elevated Potassium levels. Contact the Clinical Chemistry Laboratory if there are any questions. ICa Whole Blood 1.05(L) 1.15 - 1.33 mmol/L [facility] Comment: Note: ??Total bilirubin higher than 20 mg/dL may lead to falsely low ionized calcium. CL Whole Blood 96(L) 98 - 107 mmol/L [facility] Gluc Whole Bld 178 65 - 199 mg/dL [facility] Comment:Diabetes: >=200 mg/d L plus symptoms. Lactate WB 1.5 0.5 - 2.2 mmol/L [facility] FIO2 Art 40 % [facility] PF Ratio Art 252 [facility] Blood 05/12/2023 3:57 PM EDT 05/12/2023 3:57 PM EDT Alirio Hudson MD CHEMISTRY ORDERABLE S [facility] [place] [address] * (ABNORMAL) Coox2 (05/12/2023 2:25 PM EDT) pO2 Coox 37 mmHg [facility] Hgb Blood Gas 9.5(L) 11.7 - 15.5 g/dL [facility] O2HB Coox 59.9 % [facility] COHB Coox 0.3 % [facility] Comment: Nonsmokers: 0.5-1.5% COHB Smokers: Variable, but usually less than 10% Toxic: 20-30% COHB Lethal: Greater than 60% COHB METHB Coox 0.7 <=1.5 % [facility] Source Coox Mixed Venous [facility] Blood 05/12/2023 2:25 PM EDT 05/12/2023 2:25 PM EDT Alirio Hudson MD CHEMISTRY ORDERABLE S Performing Organization Address City/[facility] Co de Phone Number [facility] [place] [address] * (ABNORMAL) BLOOD GAS 2 ARTERIAL (05/12/2023 2:23 PM EDT) pH Art 7.37 7.35 - 7.45 [facility] pCO2 Art 36 35 - 45 mmHg [facility] pO2 Art 102 85 - 104 mmHg [facility] HCO3 Art 20.4 20.0 - 26.0 mmol/L [facility] BE Art -4.8(L) -3.0 - 3.0 mmol/L [facility] Hgb Blood Gas 12.7 11.7 - 15.5 g/dL [facility] O2HB Art 95.4 94.0 - 97.0 % [facility] COHB Art 0.3 % [facility] Comment: Nonsmokers: 0.5-1.5% COHB Smokers: Variable, but usually less than 10% Toxic: 20-30% COHB Lethal: Greater than 60% COHB METHB Art 0.7 <=1.5 % [facility] Na Whole Blood 129(L) 135 - 145 mmol/L [facility] K Whole Blood 3.7 3.5 - 5.0 mmol/L [facility] Comment: Please note: Patients with WBC >100,000 may have falsely elevated Potassium levels. Contact the Clinical Chemistry Laboratory if there are any questions. ICa Whole Blood 1.05(L) 1.15 - 1.33 mmol/L [facility] Comment: Note: ??Total bilirubin higher than 20 mg/dL may lead to falsely low ionized calcium. CL Whole Blood 95(L) 98 - 107 mmol/L [facility] Gluc Whole Bld 168 65 - 199 mg/dL [facility] Comment:Diabetes: >=200 mg/d L plus symptoms. Lactate WB 1.8 0.5 - 2.2 mmol/L [facility] FIO2 Art 40 % [facility] PF Ratio Art 255 [facility] Blood 05/12/2023 2:23 PM EDT 05/12/2023 2:23 PM EDT Alirio Hudson MD CHEMISTRY ORDERABLE S Performing Organization Address City/State/[facility] Co de Phone Number [facility] [place] [address] * (ABNORMAL) Troponin (05/12/2023 2:05 PM EDT) Troponin-T HS 1,022(H) <=14 ng/L [facility] Comment: This patient's troponin T [...] troponin value can be found in the [facility] Laboratory Test Catalog Troponin - [facility] Laboratory Test Catalog Reference: Fourth [place] Definition of Myocardial Infarction. Journal of the [place] 2018;72:1473-8677 Blood 05/12/2023 2:05 PM EDT 05/12/2023 2:14 PM EDT Narrative Resulting Agency Comment Spec In Lab Alirio Hudson MD CHEMISTRY ORDERABLE S Performing Organization Address [facility]/ZIP Co de Phone Number [facility] [place] [address] * (ABNORMAL) Hemoglobin (05/12/2023 2:05 PM EDT) Hemoglobin 8.5(L) 11.7 - 15.5 g/dL [facility] Blood 05/12/2023 2:05 PM EDT 05/12/2023 2:14 PM EDT Narrative Resulting Agency Comment Spec In Lab Alirio Hudson MD HEMATOLOGY ORDERABL ES Performing Organization Address [facility] Co de Phone Number [facility] [place] [address] * Potassium (05/12/2023 2:05 PM EDT) Potassium 3.9 3.5 - 5.0 mmol/L [facility] Comment: Please note: ??Patients with WBC >100,000 may have falsely elevated Potassium levels. ??For accurate Potassium quantification in these patients send serum separator tube (gold top) for subsequent determinations. ??Contact the Clinical Chemistry Laboratory if there are any questions. Blood 05/12/2023 2:05 PM EDT 05/12/2023 2:14 PM EDT Narrative Resulting Agency Comment Spec In Lab Alirio Hudson MD CHEMISTRY ORDERABLE S [facility] [place] [address] * (ABNORMAL) BLOOD GAS 2 ARTERIAL (05/12/2023 11:05 AM EDT) pH Art 7.34(L) 7.35 - 7.45 [facility] pCO2 Art 42 35 - 45 mmHg [facility] pO2 Art 73(L) 85 - 104 mmHg [facility] HCO3 Art 22.1 20.0 - 26.0 mmol/L [facility] BE Art -3.6(L) -3.0 - 3.0 mmol/L [facility] Hgb Blood Gas 9.3(L) 11.7 - 15.5 g/dL [facility] O2HB Art 89.3(L) 94.0 - 97.0 % [facility] COHB Art 0.2 % [facility] Comment: Nonsmokers: 0.5-1.5% COHB Smokers: Variable, but usually less than 10% Toxic: 20-30% COHB Lethal: Greater than 60% COHB METHB Art 0.9 <=1.5 % [facility] Na Whole Blood 131(L) 135 - 145 mmol/L [facility] K Whole Blood 3.8 3.5 - 5.0 mmol/L [facility] Comment: Please note: Patients with WBC >100,000 may have falsely elevated Potassium levels. Contact the Clinical Chemistry Laboratory if there are any questions. ICa Whole Blood 1.04(L) 1.15 - 1.33 mmol/L [facility] Comment: Note: ??Total bilirubin higher than 20 mg/dL may lead to falsely low ionized calcium. CL Whole Blood 96(L) 98 - 107 mmol/L [facility] Gluc Whole Bld 152 65 - 199 mg/dL [facility] Comment:Diabetes: >=200 mg/d L plus symptoms. Lactate WB 2.8(H) 0.5 - 2.2 mmol/L [facility] FIO2 Art 40 % [facility] PF Ratio Art 182 [facility] Blood 05/12/2023 11:0 5 AM EDT 05/12/2023 11:05 AM EDT Alirio Hudson MD CHEMISTRY ORDERABLE S Performing Organization Address City/State/[facility] Co de Phone Number [facility] [place] [address] * (ABNORMAL) BLOOD GAS 2 ARTERIAL (05/12/2023 10:14 AM EDT) pH Art 7.18(Criti gabrielle) 7.35 - 7.45 [facility] Comment:Noted by assembler musical instruments. pCO2 Art 45 35 - 45 mmHg [facility] LABORATORY pO2 Art 186(H) 85 - 104 mmHg [facility] HCO3 Art 16.2(L) 20.0 - 26.0 mmol/L [facility] BE Art -12.2(L) -3.0 - 3.0 mmol/L [facility] Hgb Blood Gas 10.0(L) 11.7 - 15.5 g/dL [facility] O2HB Art 97.0 94.0 - 97.0 % [facility] COHB Art 0.2 % [facility] Comment: Nonsmokers: 0.5-1.5% COHB Smokers: Variable, but usually less than 10% Toxic: 20-30% COHB Lethal: Greater than 60% COHB METHB Art 0.9 <=1.5 % [facility] Na Whole Blood 129(L) 135 - 145 mmol/L [facility] K Whole Blood 3.6 3.5 - 5.0 mmol/L [facility] Comment: Please note: Patients with WBC >100,000 may have falsely elevated Potassium levels. Contact the Clinical Chemistry Laboratory if there are any questions. ICa Whole Blood 1.10(L) 1.15 - 1.33 mmol/L [facility] Comment: Note: ??Total bilirubin higher than 20 mg/dL may lead to falsely low ionized calcium. CL Whole Blood 97(L) 98 - 107 mmol/L [facility] Gluc Whole Bld 161 65 - 199 mg/dL [facility] Comment:Diabetes: >=200 mg/d L plus symptoms. Lactate WB 3.3(H) 0.5 - 2.2 mmol/L [facility] FIO2 Art 100 % [facility] PF Ratio Art 186 [facility] Blood 05/12/2023 10:1 4 AM EDT 05/12/2023 10:14 AM EDT Alirio Hudson MD CHEMISTRY ORDERABLE S Performing Organization Address City/State/[facility] Co de Phone Number [facility] [place] [address] * EKG 12 Lead (05/12/2023 10:10 AM EDT) Ventricular rate 116 BPM MUSE SYSTEM Atrial Rate 116 BPM MUSE SYSTEM P-R Interval 158 ms MUSE SYSTEM QRS Duration 114 ms MUSE SYSTEM Q-T Interval 348 ms MUSE SYSTEM QTC Calculated (Bezet) 483 ms MUSE SYSTEM Calculated P [place] 37 degrees MUSE SYSTEM Calculated R [place] 31 degrees MUSE SYSTEM Calculated T [place] -138 degrees MUSE SYSTEM INTERPRETATION Sinus tachycardia with intermittent aberrant ventricular conduction Possible Left atrial enlargement Incomplete left bundle block Left ventricular hypertrophy with repolarization abnormality ( Sokolow-Orozco , Swain product ) ST & T wave abnormality in Inferolateral leads Abnormal ECG When compared with ECG of 10-MAY-2023 13:16, ST & T wave abnormality is more pronounced in inferolateral leads I personally reviewed the tracing and edited the fellows interpretation Confirmed by fellow MD Anuja, Jim ([id number]) on 05/12/2023 1:04:20 PM Confirmed by MD Mono, Eleni ([id number]) on 05/12/2023 9:28:34 PM MUSE SYSTEM 05/12/2023 [...] who have questions please contact the health post acute care nurse practitioner that requested your imaging first. ? Narrative 05/12/2023 10:08 AM EDT EXAMINATION: XR CHEST ONE VIEW CLINICAL HISTORY: Post TAVR TECHNIQUE: 1 view of the chest COMPARISON: Chest radiograph from earlier today FINDINGS: Interval placement of endotracheal tube with tip terminating 2 cm above the shira. Interval placement of enteric tube projecting along the expected course of the esophagus and outside the zgqku-lh-twyn. Interval retraction of right IJ approach pulmonary [...] expected course ofthe esophagus and outside the ogfwa-rv-yooe. Interval retraction of right IJ approach pulmonary [...] patients who have questions please contactthe health post acute care nurse practitioner that requested your imaging first. Alirio Hudson [...] 1955 ? Height: 154 cm ? Account: [id number] Age: 67 yrs ? Weight: 75 kg Gender: Female ?BSA: 1.7 m2 Ordering Physician: RADHA HOLLINS Referring Physician: RADHA HOLLINS Performed By: Dilma Bee RDCS Reason For Study: Guidance for TAVR procedure Exam Location: [facility]. Interpretation Summary PRE TAVR: There is [...] mL/m2. POST TAVR: Normal function of the unkcq-qg-xwuyk prosthesis. See below for hemodynamic parameters. Slight improvement in left and right ventricular systolic function. LVEF now 20-25%. No pericardial effusion. See report for additional findings. Procedure Limited - 99401. Doppler - 80335. Color Doppler - 97268. Left Ventricle Left ventricle is of normal [...] Date: 307:33 AMBP: 96/63 mmHg Patient Location: [address] : 1955 Height: 154 cm Account: [id number] Age: 67 yrs Weight: 75 kg Gender: Female BSA: 1.7 m2 Ordering Physician: RADHA HOLLINS Referring Physician: RADHA HOLLINS Performed By: Dilma Bee RDCS Reason For Study: Guidance for TAVR procedure Exam Location: [facility]. Interpretation Summary PRE TAVR: There is [...] 28mL/m2. POST TAVR: Normal function of the usdgs-nj-iprrk prosthesis. See belowfor hemodynamic parameters. Slight improvement in left and right ventricularsystolic function. LVEF now 20-25%. No pericardial effusion. See report for additional findings. Procedure Limited - 71894. Doppler - 60851. Color Doppler - 11789. Left Ventricle Left ventricle is of normal [...] Modality Other Narrative 05/12/2023 2:37 PM EDT ?[facility] ? Cardiac Catheterization/Intervention Report ? Patient Name: Kirstie, Purnima M. ? Procedure Date: 05/12/2023 ? A #: [id number] ? Primary Physician: Antelmo Sharma ? Case #: [id number] ? File Name: [id number] ? Catheterization Order Number: [id number] ? [facility] ? Final Report [place], [place] ? Patient Name: ? Purnima Thacker ? ID#: ?[id number] ? : ?1955 ? Procedure Date: ? May 12, 2023 ? Case #: ? [id number] ? Room: ? 6 ? Case Physicians: ?Antelmo Sharma M.D. ?Start: ?08:03 ?Alirio Hudson M.D. ?Admission: ??05/08/2023 ?Lynda Mcgowan M.D. ? Discharge: ??05/22/2023 ?Fellow: ? Kristied Bhavna Tejeda. ? Referring Physician: ??Mario Alberto Chin M.D. ? Procedures: ?* Coronary Angiography ?* Left Heart Catheterization ?* Coronary Stent Insertion ?* Transcatheter Aortic Valve Replacement ?* Vascular Closure Device Deployment ?* Temporary Pacemaker Insertion In Mechanical Piping Designer ?* Endotracheal Intubation By Non-Cath Physician ?* [...] was designated as ASA Class IV. The [facility] clinical ?frailty scale is 4: Vulnerable. [...] guide. ??A premounted 4.00 x 30 mm [place] Stanton (MINNA) was ? deployed with a maximum [...] calculated STS risk score was 30.1%. A igmrx-dz-thija ?procedure was performed on the pre-existing bioprosthetic stented ?prosthesis. The priority of the zqcvd-lu-upjyr procedure was Elective. ?The procedure was performed [...] Lai 3 Ultra RESILIA 23 mm THV (s/k=[id number]) transcatheter ?valve was inserted using standard technique. 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 ?Recommended anti-platelet/anti-thrombotic regimen: ?Continue aspirin 81 mg daily for indefinitely. ?These recommendations are made at the time of the intervention. Patient ?and provider preferences or a changing clinical situation may require ?modification of this regimen. Consult [facility] Interventional Cardiology for ?questions. [...] regimen. ? Comments: ?Successful right transfemoral TAVR Pfvxk-lb-Lhnvq with a 23 mm Lai 3 ?THV. 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 Dr. Alirio Hudson M.D. ?performed the left heart catheterization, access site angiography, ?temporary pacemaker in laborer [place] [employer], vascular closure device, transthoracic ?echo , TAVR and CPR during cath. Dr. Lynda Mcgowan M.D. performed the ABG, ?anesthesia and intubation-non cath physician. ? Antelmo Sharma M.D. ? Electronically Signed by: Antelmo Sharma M.D. ? Report Finalized: 05/12/2023 ??14:31 ? Report Last Ammended: 07/01/2023 ??11:30 ? Procedure Note Antelmo Sharma MD - 07/01/2023 [facility] Cardiac Catheterization/Intervention Report Patient Name: Purnima Thacker Procedure Date: 05/12/2023 A #: [id number] Primary Physician: Antelmo Sharma Case #: [id number] File Name: [id number] Catheterization Order Number: [id number] [facility] FinalReport [place], [place] Patient Name: Purnima Thacker ID#:[id number] :1955 Procedure Date: May 12, 2023 Case #: [id number] Room: 6 Case Physicians: Antelmo Sharma M.D. Start: 08:03 Alirio Hudson M.D. Admission:05/08/2023 Lynda Mcgowan M.D. Discharge:05/22/2023 Fellow: Rebekah Tejeda M.D. Referring Physician: Mario Alberto Chin M.D. Procedures: * Coronary Angiography * Left Heart Catheterization * Coronary Stent Insertion * Transcatheter Aortic Valve Replacement * Vascular Closure Device Deployment * Temporary Pacemaker Insertion In Mechanical Piping Designer * Endotracheal Intubation By Non-Cath Physician * [...] guide. A premounted 4.00 x 30 mm [place] Stanton (MINNA) was deployed with a maximum inflation [...] calculated STS risk score was 30.1%. A ggfji-as-zrfga procedure was performed on the pre-existing bioprosthetic stented prosthesis. The priority of the umlzj-rj-rqiqy procedure wasElective. The procedure was performed under Moderate sedation performed byLynda Mcgowan M.D. (see anesthesia report for additional details). Alirio Hudson M.D. participated in the case (see Cardiac Surgery reportfor additional details). The TAVR sheath was a 14 Fr Corona eSheath Introducer and theaccess site was femoral. Rapid ventricular pacing was performed. An [place]ona Lai 3 Ultra RESILIA 23 mm THV (s/t=[id number])transcatheter valve was inserted using standard technique. 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 Recommended anti-platelet/anti-thrombotic regimen: Continue aspirin 81 mg daily for indefinitely. These recommendations are made at the time of the intervention.Patient and provider preferences or a changing clinical situation mayrequire modification of this regimen. Consult [facility] Interventional Cardiologyfor questions. Conclusions: [...] this regimen. Comments: Successful right transfemoral TAVR Zhhgb-sa-Mkjgs with a 23 mmSapien 3 THV. We [...] access site angiography, temporary pacemaker in laborer [place] [employer], intubation-non cath physician,vascular closure device, transthoracic echo and TAVR. Dr. Alirio Hudson M.D. performed the left heart catheterization, access site angiography, temporary pacemaker in laborer [place] [employer], vascular closure device,transthoracic echo , TAVR and [...] POC pH 7.20(Crit ical) 7.35 - 7.45 [facility] Comment:Critical value OK, C C Lab. POC PCO2 42 35 - 45 mmHg [facility] POC PO2 260(H) 85 - 104 mmHg [facility] POC Base Excess -11.0(L) -3.0 - 3.0 mmol/L [facility] POC HCO3 16.7(L) 20.0 - 26.0 mmol/L [facility] POC Sodium 129(L) 135 - 145 mmol/L [facility] POC Potassium 3.8 3.5 - 5.0 mmol/L [facility] POC Ionized Ca 1.12(L) 1.15 - 1.33 mmol/L [facility] POC Hematocrit 23.0(L) 34.0 - 45.0 % [facility] POC Calc Hgb 7.8(L) 11.2 - 15.7 g/dL [facility] Comment:The calculation of h emoglobin from hematocrit assumes a normal MCHC. POC Bgas Loc CC Lab [facility] Blood 05/12/2023 8:50 AM EDT 05/13/2023 12:00 PM EDT Alirio Hudosn MD CHEMISTRY ORDERABLE S Performing Organization Address City/State/[facility] Co de Phone Number [facility] [place] [address] * (ABNORMAL) Point of Care Blood Gas Historical (05/12/2023 8:10 AM EDT) POC pH 7.27(Crit ical) 7.35 - 7.45 [facility] Comment:Critical value Yamel KRAUSE C Lab. POC PCO2 37 35 - 45 mmHg [facility] POC PO2 29(Critic al) 85 - 104 mmHg [facility] Comment:Critical value OK C C Lab. POC Base Excess -10.0(L) -3.0 - 3.0 mmol/L [facility] POC HCO3 16.7(L) 20.0 - 26.0 mmol/L [facility] POC Sodium 123(L) 135 - 145 mmol/L [facility] POC Potassium 4.0 3.5 - 5.0 mmol/L [facility] POC Ionized Ca 1.12(L) 1.15 - 1.33 mmol/L [facility] POC Hematocrit 27.0(L) 34.0 - 45.0 % [facility] POC Calc Hgb 9.2(L) 11.2 - 15.7 g/dL [facility] Comment:The calculation of h emoglobin from hematocrit assumes a normal MCHC. POC Bgas Loc CC Lab [facility] Blood 05/12/2023 8:10 AM EDT 05/13/2023 12:00 PM EDT Alirio Hudson MD CHEMISTRY ORDERABLE S Performing Organization Address [facility] Co de Phone Number [facility] [place] [address] * (ABNORMAL) Lactate, whole blood, send to lab ([facility]) (05/12/2023 7:00 AM EDT) Lactate WB 2.4(H) 0.5 - 2.2 mmol/L [facility] Blood 05/12/2023 7:00 AM EDT 05/12/2023 7:09 AM EDT Narrative Resulting Agency Comment Spec In Lab Radha Hollins MD CHEMISTRY ORDERABL ES Performing Organization Address [facility] Co de Phone Number [facility] [place] [address] * (ABNORMAL) Comprehensive metabolic panel (non-fasting) (05/12/2023 6:00 AM EDT) Glucose Lvl 167 65 - 199 mg/dL [facility] Comment:Diabetes: >=200 mg/d L plus symptoms BUN 67(H) 8 - 18 mg/dL [facility] Creatinine 2.01(H) 0.70 - 1.20 mg/dL [facility] Sodium 131(L) 135 - 145 mmol/L [facility] Potassium 4.3 3.5 - 5.0 mmol/L [facility] Comment: Please note: ??Patients with WBC >100,000 may have falsely elevated Potassium levels. ??For accurate Potassium quantification in these patients send serum separator tube (gold top) for subsequent determinations. ??Contact the Clinical Chemistry Laboratory if there are any questions. Chloride 97(L) 98 - 107 mmol/L [facility] CO2 14(L) 22 - 31 mmol/L [facility] Anion Gap 20(H) 5 - 15 mmol/L [facility] Calcium 8.6 8.5 - 10.5 mg/dL [facility] Total Protein 6.3 6.1 - 8.0 g/dL [facility] Albumin 3.5 3.2 - 5.2 g/dL [facility] AST 1,435(H) 0 - 30 unit/L [facility] ALT 1,174(H) 0 - 30 unit/L [facility] Alk Phos 100 35 - 105 unit/L [facility] Total Bilirubin 0.9 0.2 - 1.3 mg/dL [facility] Estimated GFR 27(L) >=60 mL/min/1. 73 m?? [facility] Comment: This patient's estimated GFR [...] Lab Radha Hollins MD CHEMISTRY ORDERABL ES [facility] [place] [address] * (ABNORMAL) Coox2 (05/12/2023 5:08 AM EDT) pO2 Coox 24 mmHg [facility] Hgb Blood Gas 10.4(L) 11.7 - 15.5 g/dL [facility] O2HB Coox 30.7 % [facility] COHB Coox 0.3 % [facility] Comment: Nonsmokers: 0.5-1.5% COHB Smokers: Variable, but usually less than 10% Toxic: 20-30% COHB Lethal: Greater than 60% COHB METHB Coox 0.8 <=1.5 % [facility] Source Coox Mixed Venous [facility] Blood 05/12/2023 5:08 AM EDT 05/12/2023 5:08 AM EDT Radha Hollins MD CHEMISTRY ORDERABL ES Performing Organization Address [facility] de Phone Number [facility] [place] [address] * (ABNORMAL) Coox2 (05/12/2023 3:21 AM EDT) pO2 Coox 25 mmHg [facility] Hgb Blood Gas 10.8(L) 11.7 - 15.5 g/dL [facility] O2HB Coox 32.7 % [facility] COHB Coox 0.3 % [facility] Comment: Nonsmokers: 0.5-1.5% COHB Smokers: Variable, but usually less than 10% Toxic: 20-30% COHB Lethal: Greater than 60% COHB METHB Coox 0.7 <=1.5 % [facility] Source Coox Mixed Venous [facility] Blood 05/12/2023 3:21 AM EDT 05/12/2023 3:21 AM EDT Radha Hollins MD CHEMISTRY ORDERABL ES Performing Organization Address [facility] de Phone Number [facility] [place] [address] * (ABNORMAL) BLOOD GAS 2 ARTERIAL (05/12/2023 3:18 AM EDT) pH Art 7.34(L) 7.35 - 7.45 [facility] pCO2 Art 30(L) 35 - 45 mmHg [facility] pO2 Art 72(L) 85 - 104 mmHg [facility] HCO3 Art 16.0(L) 20.0 - 26.0 mmol/L [facility] BE Art -9.8(L) -3.0 - 3.0 mmol/L [facility] Hgb Blood Gas 11.0(L) 11.7 - 15.5 g/dL [facility] O2HB Art 89.8(L) 94.0 - 97.0 % [facility] COHB Art 0.3 % [facility] Comment: Nonsmokers: 0.5-1.5% COHB Smokers: Variable, but usually less than 10% Toxic: 20-30% COHB Lethal: Greater than 60% COHB METHB Art 0.7 <=1.5 % [facility] Na Whole Blood 131(L) 135 - 145 mmol/L [facility] K Whole Blood 4.2 3.5 - 5.0 mmol/L [facility] Comment: Please note: Patients with WBC >100,000 may have falsely elevated Potassium levels. Contact the Clinical Chemistry Laboratory if there are any questions. ICa Whole Blood 1.12(L) 1.15 - 1.33 mmol/L [facility] Comment: Note: ??Total bilirubin higher than 20 mg/dL may lead to falsely low ionized calcium. CL Whole Blood 100 98 - 107 mmol/L [facility] Gluc Whole Bld 160 65 - 199 mg/dL [facility] Comment:Diabetes: >=200 mg/d L plus symptoms. Lactate WB 2.7(H) 0.5 - 2.2 mmol/L [facility] Flow Art 5.0 LPM [facility] Blood 05/12/2023 3:18 AM EDT 05/12/2023 3:18 AM EDT Radha Hollins MD CHEMISTRY ORDERABL ES Performing Organization Address [facility] de Phone Number [facility] [place] [address] * (ABNORMAL) Coox2 (05/12/2023 1:14 AM EDT) pO2 Coox 28 mmHg [facility] Hgb Blood Gas 10.9(L) 11.7 - 15.5 g/dL [facility] O2HB Coox 37.3 % [facility] COHB Coox 0.3 % [facility] Comment: Nonsmokers: 0.5-1.5% COHB Smokers: Variable, but usually less than 10% Toxic: 20-30% COHB Lethal: Greater than 60% COHB METHB Coox 0.5 <=1.5 % [facility] Source Coox Mixed Venous [facility] Blood 05/12/2023 1:14 AM EDT 05/12/2023 1:14 AM EDT Radha Hollins MD CHEMISTRY ORDERABL ES Performing Organization Address [facility] de Phone Number [facility] [place] [address] * (ABNORMAL) BLOOD GAS 2 ARTERIAL (05/12/2023 1:06 AM EDT) pH Art 7.34(L) 7.35 - 7.45 [facility] pCO2 Art 30(L) 35 - 45 mmHg [facility] pO2 Art 81(L) 85 - 104 mmHg [facility] HCO3 Art 15.7(L) 20.0 - 26.0 mmol/L [facility] BE Art -10.1(L) -3.0 - 3.0 mmol/L [facility] Hgb Blood Gas 11.0(L) 11.7 - 15.5 g/dL [facility] O2HB Art 92.3(L) 94.0 - 97.0 % [facility] COHB Art 0.2 % [facility] Comment: Nonsmokers: 0.5-1.5% COHB Smokers: Variable, but usually less than 10% Toxic: 20-30% COHB Lethal: Greater than 60% COHB METHB Art 0.6 <=1.5 % [facility] Na Whole Blood 131(L) 135 - 145 mmol/L [facility] K Whole Blood 4.2 3.5 - 5.0 mmol/L [facility] Comment: Please note: Patients with WBC >100,000 may have falsely elevated Potassium levels. Contact the Clinical Chemistry Laboratory if there are any questions. ICa Whole Blood 1.13(L) 1.15 - 1.33 mmol/L [facility] Comment: Note: ??Total bilirubin higher than 20 mg/dL may lead to falsely low ionized calcium. CL Whole Blood 99 98 - 107 mmol/L [facility] Gluc Whole Bld 132 65 - 199 mg/dL [facility] Comment:Diabetes: >=200 mg/d L plus symptoms. Lactate WB 2.7(H) 0.5 - 2.2 mmol/L [facility] Flow Art 5.0 LPM [facility] Blood 05/12/2023 1:06 AM EDT 05/12/2023 1:06 AM EDT Radha Hollins MD CHEMISTRY ORDERABL ES [facility] [place] [address] * (ABNORMAL) Differential, Automated (05/12/2023 1:05 AM EDT) Neutrophils % 83.3 % [facility] Neutr Abs (ANC) 7.49(H) 1.70 - 6.10 x10(3)/mc L [facility] Lymphocytes % 7.1 % [facility] Lymphocytes Abs 0.6(L) 0.9 - 3.2 x10(3)/[facility] Monocytes % 8.9 % [facility] Monocyte Abs 0.8 0.3 - 0.9 x10(3)/[facility] Eosinophils % 0.0 % [facility] Eosinophils Abs 0.0 0.0 - 0.4 x10(3)/[facility] Basophils % 0.1 % [facility] Basophils Abs 0.0 0.0 - 0.1 x10(3)/[facility] Immature Gran % 0.60 % [facility] Comment: Immature granulocytes(IG's)percentage and absolute count will include metamyelocytes, myelocytes, and promyelocytes. Blood smears from CBCs yielding IG's will be scanned manually for concordance. If this scan disagrees with the automated IG or if promyelocytes are noted, a manual differential will be performed. Amanda Gran Abs 0.05(H) 0.00 - 0.04 x10(3)/[facility] Blood 05/12/2023 1:05 AM EDT 05/12/2023 1:15 AM EDT Narrative Resulting Agency Comment Spec In Lab Gianni Fletcher MD HEMATOLOGY ORDERABLE S [facility] [place] [address] * (ABNORMAL) Hemogram (05/12/2023 1:05 AM EDT) WBC 9.0 4.0 - 9.5 x10(3)/[facility] RBC 3.01(L) 4.00 - 5.21 x10(6)/[facility] Hemoglobin 9.8(L) 11.7 - 15.5 g/dL [facility] Hematocrit 28.7(L) 35.7 - 45.8 % [facility] MCV 95.3(H) 82.6 - 94.4 fL [facility] MCH 32.6(H) 27.1 - 32.0 pg [facility] MCHC 34.1 31.7 - 35.0 g/dL [facility] Platelets 186 145 - 357 x10(3)/[facility] RDWSD 43.7 37.0 - 46.0 [facility] RDWCV 12.7 11.5 - 14.1 % [facility] MPV 10.3 7.6 - 12.9 [facility] nRBC % Auto 0.0 % [facility] nRBC Abs Auto 0.000 0.000 - 0.000 x10(3)/[facility] Blood 05/12/2023 1:05 AM EDT 05/12/2023 1:15 AM EDT Narrative Resulting Agency Comment Spec In Lab Gianni Fletcher MD HEMATOLOGY ORDERABLE S [facility] [place] [address] * (ABNORMAL) Comprehensive metabolic panel (non-fasting) (05/12/2023 1:05 AM EDT) Glucose Lvl 141 65 - 199 mg/dL [facility] Comment:Diabetes: >=200 mg/d L plus symptoms BUN 63(H) 8 - 18 mg/dL [facility] Creatinine 1.86(H) 0.70 - 1.20 mg/dL [facility] Sodium 131(L) 135 - 145 mmol/L [facility] Potassium 4.4 3.5 - 5.0 mmol/L [facility] Comment: Please note: ??Patients with WBC >100,000 may have falsely elevated Potassium levels. ??For accurate Potassium quantification in these patients send serum separator tube (gold top) for subsequent determinations. ??Contact the Clinical Chemistry Laboratory if there are any questions. Chloride 96(L) 98 - 107 mmol/L [facility] CO2 14(L) 22 - 31 mmol/L [facility] Anion Gap 21(H) 5 - 15 mmol/L [facility] Calcium 9.0 8.5 - 10.5 mg/dL [facility] Total Protein 6.6 6.1 - 8.0 g/dL [facility] Albumin 3.9 3.2 - 5.2 g/dL [facility] AST 1,227(H) 0 - 30 unit/L [facility] ALT 1,097(H) 0 - 30 unit/L [facility] Alk Phos 108(H) 35 - 105 unit/L [facility] Total Bilirubin 1.0 0.2 - 1.3 mg/dL [facility] Estimated GFR 29(L) >=60 mL/min/1. 73 m?? [facility] Comment: This patient's estimated GFR [...] Lab Radha Hollins MD CHEMISTRY ORDERABL ES [facility] [place] [address] * XR Chest One View (05/12/2023 1:00 [...] who have questions please contact the health post acute care nurse practitioner that requested your imaging first. ? Narrative [...] patients who have questions please contactthe health post acute care nurse practitioner that requested your imaging first. Radha Hollins MD IMG DX ORDERABLES * (ABNORMAL) Coox2 (05/12/2023 12:30 AM EDT) pO2 Coox 22 mmHg [facility] Hgb Blood Gas 10.9(L) 11.7 - 15.5 g/dL [facility] O2HB Coox 25.1 % [facility] COHB Coox 0.3 % [facility] Comment: Nonsmokers: 0.5-1.5% COHB Smokers: Variable, but usually less than 10% Toxic: 20-30% COHB Lethal: Greater than 60% COHB METHB Coox 1.4 <=1.5 % [facility] Source Coox Mixed Venous [facility] Blood 05/12/2023 12:3 0 AM EDT 05/12/2023 12:30 AM EDT Radha Hollins MD CHEMISTRY ORDERABL ES [facility] [place] [address] * XR Chest One View (05/11/2023 11:45 [...] who have questions please contact the health post acute care nurse practitioner that requested your imaging first. ? Narrative [...] patients who have questions please contactthe health post acute care nurse practitioner that requested your imaging first. Radha Hollins MD IMG DX ORDERABLES * (ABNORMAL) Lactate, whole blood, send to lab ([facility]) (05/11/2023 7:40 PM EDT) Lactate WB 4.8(Critic al) 0.5 - 2.2 mmol/L [facility] Comment:Called by: NIKI, Read back by: Magdalena Baires, Date/Time:05/11/23 19:54. Blood 05/11/2023 7:40 PM EDT 05/11/2023 7:49 PM EDT Narrative Resulting Agency Comment Spec In Lab Radha Hollins MD CHEMISTRY ORDERABL ES [facility] [place] [address] * Urine culture (05/11/2023 7:22 PM EDT) Urine Culture 50,000-99,000 cfu/ml Normal mucosal herman Susceptibilit y testing not routinely performed for Coagulase Negative Staphylococcu s species and other Gram Positive organisms from urine. [facility] Clean Catch Urine 05/11/2023 7:22 PM EDT 05/11/2023 8:50 PM EDT Narrative Resulting Agency Comment Spec In Lab Brody Kaplan FRONT OFFICE AGENT MICROBIOLOGY - GENE RAL ORDERABLES Performing Organization Address [facility]/ZIP Co de Phone Number [facility] [place] [address] * (ABNORMAL) Urinalysis Microscopic Exam (05/11/2023 7:22 PM EDT) RBC UA 2 0 - 4 /HPF [facility] WBC UA >100(H) 0 - 5 /HPF [facility] Bacteria UA Occasional (A) None /HPF [facility] Squam Epith UA 5(H) <=4 /HPF [facility] Hyaline Cast UA 3(H) 0 - 2 /LPF [facility] Clean Catch Urine 05/11/2023 7:22 PM EDT 05/11/2023 7:31 PM EDT Narrative Resulting Agency Comment Spec In Lab Brody Kaplan APRN URINE ORDERABLES Performing Organization Address [facility]/ZIP Co de Phone Number [facility] [place] [address] * (ABNORMAL) Urinalysis with reflex Culture (05/11/2023 7:22 PM EDT) Glucose UA Negative Negative mg/dL [facility] Protein UA Trace(A) Negative mg/dL [facility] Bilirubin UA Negative Negative mg/dL [facility] Comment: Clinical correlation required for positive Urine Bilirubin results as false positive may occur with some drugs and drug related products. If a false positive is suspected a serum total bilirubin should be considered if clinically indicated. Urobilinogen UA Normal Normal mg/dL [facility] pH UA 5.0 5.0 - 8.0 [facility] Blood UA Trace(A) Negative mg/dL [facility] Ketones UA Negative Negative mg/dL [facility] Nitrite UA Negative Negative [facility] Leukocytes UA Moderate(A) Negative mcL [facility] Appearance UA Cloudy(A) Clear [facility] Spec [place] UA >=1.030(A) 1.005 - 1.030 [facility] Color UA Yellow Yellow [facility] Culture Reflexed Yes [facility] Clean Catch Urine 05/11/2023 7:22 PM EDT 05/11/2023 7:31 PM EDT Narrative Resulting Agency Comment Spec In Lab Brody Kaplan APRN URINE ORDERABLES [facility] [place] [address] * (ABNORMAL) pro-Brain Natriuretic Peptide (05/11/2023 7:11 PM EDT) Pathologist [facility] ProBNP >35,000(H) <=124 pg/mL [facility] Blood 05/11/2023 7:11 PM EDT 05/11/2023 7:26 PM EDT Narrative Resulting Agency Comment Spec In Lab Radha Hollins MD CHEMISTRY ORDERABL ES [facility] [place] [address] * (ABNORMAL) Lactate, whole blood, send to lab ([facility]) (05/11/2023 2:47 PM EDT) Lactate WB 2.9(H) 0.5 - 2.2 mmol/L [facility] Blood 05/11/2023 2:47 PM EDT 05/11/2023 2:53 PM EDT Narrative Resulting Agency Comment Spec In Lab Juan Luis Gonzalez MD CHEMISTRY ORDERABLES [facility] [place] [address] * (ABNORMAL) CT Angiogram Abdomen & Pelvis [...] who have questions please contact the health post acute care nurse practitioner that requested your imaging first. ? Narrative [...] who have questions please contact the health post acute care nurse practitioner that requested your imaging first. ? Electronically signed by: Cullen Narayanan MD, [facility] ([phone]), at 05/11/2023 4:37 PM Narrative 05/11/2023 4:37 [...] 610 mm2 Circumference: 88 mm Calcification: Mild Oeyzwdc-ac-utipzdpl height: Left: 6.2 mm Right: 5.8 mm THORACIC AORTA Description: Normal course and caliber. ??Mild diffuse atherosclerotic changes. No acute aortopathy noted. Transmission Rebuilder dimensions: Aortic root: 27.6 mm Max ascending aorta: 30.5 mm x 27.7 mm Suggested fluoroscopic angulation based on line extending through the nadirs of the three sinuses of Valsalva, set equidistant: ?? BOTSWANAN ??9 degrees; cranial 7 degrees MITRAL: Mitral [...] 610 mm2 Circumference: 88 mm Calcification: Mild Xpuiwdp-ev-jfwshlgd height: Left: 6.2 mm Right: 5.8 mm THORACIC AORTA Description: Normal course and caliber. Mild diffuse atheroscleroticchanges. No acute aortopathy noted. Transmission Rebuilder dimensions: Aortic root: 27.6 mm Max ascending aorta: 30.5 mm x 27.7 mm Suggested fluoroscopic angulation based on line extending through thenadirs of the three sinuses of Valsalva, set equidistant: BOTSWANAN 9 degrees; cranial 7 degrees MITRAL: Mitral [...] patients who have questions please contactthe health post acute care nurse practitioner that requested your imaging first. Antelmo Sharma MD IMG CT ORDERABLES * (ABNORMAL) Lactate, whole blood, send to lab ([facility]) (05/11/2023 9:29 AM EDT) Pathologist [facility] Lactate WB 3.1(H) 0.5 - 2.2 mmol/L [facility] Blood 05/11/2023 9:29 AM EDT 05/11/2023 9:38 AM EDT Narrative Resulting Agency Comment Spec In Lab Juan Luis Gonzalez MD CHEMISTRY ORDERABLES [facility] [place] [address] * (ABNORMAL) Differential, Automated (05/11/2023 4:42 AM EDT) Neutrophils % 78.1 % [facility] Neutr Abs (ANC) 5.46 1.70 - 6.10 x10(3)/mc L [facility] Lymphocytes % 10.6 % [facility] Lymphocytes Abs 0.7(L) 0.9 - 3.2 x10(3)/mc L [facility] Monocytes % 9.6 % [facility] Monocyte Abs 0.7 0.3 - 0.9 x10(3)/mc L [facility] Eosinophils % 0.0 % [facility] Eosinophils Abs 0.0 0.0 - 0.4 x10(3)/mc L [facility] Basophils % 0.4 % [facility] Basophils Abs 0.0 0.0 - 0.1 x10(3)/mc L [facility] Immature Gran % 1.30 % [facility] Comment: Immature granulocytes(IG's)percentage and absolute count will include metamyelocytes, myelocytes, and promyelocytes. Blood smears from CBCs yielding IG's will be scanned manually for concordance. If this scan disagrees with the automated IG or if promyelocytes are noted, a manual differential will be performed. Amanda Gran Abs 0.09(H) 0.00 - 0.04 x10(3)/mc L [facility] Blood 05/11/2023 4:42 AM EDT 05/11/2023 4:49 AM EDT Narrative Resulting Agency Comment Spec In Lab Klaudia Reid MD HEMATOLOGY OR DERABLES [facility] [place] [address] * (ABNORMAL) Hemogram (05/11/2023 4:42 AM EDT) WBC 7.0 4.0 - 9.5 x10(3)/[facility] RBC 3.44(L) 4.00 - 5.21 x10(6)/[facility] Hemoglobin 11.1(L) 11.7 - 15.5 g/dL [facility] Hematocrit 32.7(L) 35.7 - 45.8 % [facility] MCV 95.1(H) 82.6 - 94.4 fL [facility] MCH 32.3(H) 27.1 - 32.0 pg [facility] MCHC 33.9 31.7 - 35.0 g/dL [facility] Platelets 165 145 - 357 x10(3)/[facility] RDWSD 43.1 37.0 - 46.0 [facility] RDWCV 12.7 11.5 - 14.1 % [facility] MPV 10.1 7.6 - 12.9 fL [facility] nRBC % Auto 0.0 % [facility] nRBC Abs Auto 0.000 0.000 - 0.000 x10(3)/mcL [facility] Blood 05/11/2023 4:42 AM EDT 05/11/2023 4:49 AM EDT Narrative Resulting Agency Comment Spec In Lab Klaudia Reid MD HEMATOLOGY OR DERABLES Performing Organization Address [facility]/ZIP Co de Phone Number [facility] [place] [address] * Heparin (unfractionated) Level (05/11/2023 4:42 AM EDT) Heparin UFH Level 0.46 IU/mL [facility] Comment: Heparin (anti-Xa) levels should [...] MD HEMATOLOGY ORDERAB LES Performing Organization Address [facility]/ZIP Co de Phone Number [facility] [place] [address] * (ABNORMAL) Comprehensive metabolic panel (non-fasting) (05/11/2023 4:42 AM EDT) Glucose Lvl 143 65 - 199 mg/dL [facility] Comment:Diabetes: >=200 mg/d L plus symptoms BUN 42(H) 8 - 18 mg/dL [facility] Creatinine 1.24(H) 0.70 - 1.20 mg/dL [facility] Sodium 134(L) 135 - 145 mmol/L [facility] Potassium 4.6 3.5 - 5.0 mmol/L [facility] Comment: Please note: ??Patients with WBC >100,000 may have falsely elevated Potassium levels. ??For accurate Potassium quantification in these patients send serum separator tube (gold top) for subsequent determinations. ??Contact the Clinical Chemistry Laboratory if there are any questions. Chloride 99 98 - 107 mmol/L [facility] CO2 14(L) 22 - 31 mmol/L [facility] Anion Gap 21(H) 5 - 15 mmol/L [facility] Calcium 9.6 8.5 - 10.5 mg/dL [facility] Total Protein 7.2 6.1 - 8.0 g/dL [facility] Albumin 3.7 3.2 - 5.2 g/dL [facility] AST 144(H) 0 - 30 unit/L [facility] Comment:result rechecked-ssc ALT 130(H) 0 - 30 unit/L [facility] Comment:result rechecked-ssc Alk Phos 72 35 - 105 unit/L [facility] Total Bilirubin 0.8 0.2 - 1.3 mg/dL [facility] Estimated GFR 48(L) >=60 mL/min/1. 73 m?? [facility] Comment: This patient's estimated GFR [...] MD CHEMISTRY ORDERABL ES Performing Organization Address City/[facility]/ZIP Co de Phone Number [facility] [place] [address] * EKG 12 Lead (05/10/2023 1:16 PM EDT) Ventricular rate 118 BPM MUSE SYSTEM Atrial Rate 118 BPM MUSE SYSTEM P-R Interval 152 ms MUSE SYSTEM QRS Duration 104 ms MUSE SYSTEM Q-T Interval 316 ms MUSE SYSTEM QTC Calculated (Bezet) 442 ms MUSE SYSTEM Calculated P [place] 29 degrees MUSE SYSTEM Calculated R [place] 18 degrees MUSE SYSTEM Calculated T [place] -173 degrees MUSE SYSTEM INTERPRETATION Sinus tachycardia [...] Anterior leads Confirmed by MD Villareal Danette ([id number]) on 05/10/2023 8:47:46 PM MUSE SYSTEM 05/10/2023 1:16 PM EDT 05/10/2023 8:47 PM EDT Juan Luis Gonzalez MD ECG ORDERABLES Performing Organization Address [facility] Co de Phone Number MUSE SYSTEM * Lactate, whole blood, send to lab ([facility]) (05/10/2023 11:52 AM EDT) Lactate WB 1.8 0.5 - 2.2 mmol/L [facility] Blood 05/10/2023 11:5 2 AM EDT 05/10/2023 12:13 PM EDT Narrative Resulting Agency Comment Spec In Lab Juan Luis Gonzalez MD CHEMISTRY ORDERABLES Performing Organization Address City/[facility]/ZIP Co de Phone Number [facility] [place] [address] * XR Chest One View (05/10/2023 11:16 [...] who have questions please contact the health post acute care nurse practitioner that requested your imaging first. ? Narrative [...] patients who have questions please contactthe health post acute care nurse practitioner that requested your imaging first. Juan Luis Gonzalez MD IMG DX ORDERABLES * EKG 12 Lead (05/10/2023 7:59 AM EDT) Ventricular rate 115 BPM MUSE SYSTEM Atrial Rate 115 BPM MUSE SYSTEM P-R Interval 142 ms MUSE SYSTEM QRS Duration 102 ms MUSE SYSTEM Q-T Interval 322 ms MUSE SYSTEM QTC Calculated (Bezet) 445 ms MUSE SYSTEM Calculated P [place] 36 degrees MUSE SYSTEM Calculated R [place] 28 degrees MUSE SYSTEM Calculated T [place] -119 degrees MUSE SYSTEM INTERPRETATION Sinus tachycardia [...] 2:28 AM EDT) Neutrophils % 77.1 % [facility] Neutr Abs (ANC) 4.01 1.70 - 6.10 x10(3)/[facility] Lymphocytes % 14.0 % [facility] Lymphocytes Abs 0.7(L) 0.9 - 3.2 x10(3)/[facility] Monocytes % 7.7 % [facility] Monocyte Abs 0.4 0.3 - 0.9 x10(3)/[facility] Eosinophils % 0.4 % [facility] Eosinophils Abs 0.0 0.0 - 0.4 x10(3)/[facility] Basophils % 0.4 % [facility] Basophils Abs 0.0 0.0 - 0.1 x10(3)/[facility] Immature Gran % 0.40 % [facility] Comment: Immature granulocytes(IG's)percentage and absolute count will include metamyelocytes, myelocytes, and promyelocytes. Blood smears from CBCs yielding IG's will be scanned manually for concordance. If this scan disagrees with the automated IG or if promyelocytes are noted, a manual differential will be performed. Amanda Gran Abs 0.02 0.00 - 0.04 x10(3)/[facility] Blood 05/10/2023 2:28 AM EDT 05/10/2023 2:57 AM EDT Narrative Resulting Agency Comment Spec In Lab Klaudia Reid MD HEMATOLOGY OR DERABLES [facility] [place] [address] * (ABNORMAL) Hemogram (05/10/2023 2:28 AM EDT) WBC 5.2 4.0 - 9.5 x10(3)/[facility] RBC 3.11(L) 4.00 - 5.21 x10(6)/[facility] Hemoglobin 10.2(L) 11.7 - 15.5 g/dL [facility] Hematocrit 30.2(L) 35.7 - 45.8 % [facility] MCV 97.1(H) 82.6 - 94.4 fL [facility] MCH 32.8(H) 27.1 - 32.0 pg [facility] MCHC 33.8 31.7 - 35.0 g/dL [facility] Platelets 151 145 - 357 x10(3)/[facility] RDWSD 44.9 37.0 - 46.0 [facility] RDWCV 12.8 11.5 - 14.1 % [facility] MPV 9.8 7.6 - 12.9 [facility] nRBC % Auto 0.0 % [facility] nRBC Abs Auto 0.000 0.000 - 0.000 x10(3)/[facility] Blood 05/10/2023 2:28 AM EDT 05/10/2023 2:57 AM EDT Narrative Resulting Agency Comment Spec In Lab Klaudia Reid MD HEMATOLOGY OR DERABLES [facility] [place] [address] * (ABNORMAL) Comprehensive metabolic panel (non-fasting) (05/10/2023 2:28 AM EDT) Glucose Lvl 100 65 - 199 mg/dL [facility] Comment:Diabetes: >=200 mg/d L plus symptoms BUN 30(H) 8 - 18 mg/dL [facility] Creatinine 0.90 0.70 - 1.20 mg/dL [facility] Sodium 134(L) 135 - 145 mmol/L [facility] Potassium 4.1 3.5 - 5.0 mmol/L [facility] Comment: Please note: ??Patients with WBC >100,000 may have falsely elevated Potassium levels. ??For accurate Potassium quantification in these patients send serum separator tube (gold top) for subsequent determinations. ??Contact the Clinical Chemistry Laboratory if there are any questions. Chloride 102 98 - 107 mmol/L [facility] CO2 20(L) 22 - 31 mmol/L [facility] Anion Gap 12 5 - 15 mmol/L [facility] Calcium 9.3 8.5 - 10.5 mg/dL [facility] Total Protein 6.4 6.1 - 8.0 g/dL [facility] Albumin 3.7 3.2 - 5.2 g/dL [facility] AST 24 0 - 30 unit/L [facility] ALT 14 0 - 30 unit/L [facility] Alk Phos 70 35 - 105 unit/L [facility] Total Bilirubin 0.5 0.2 - 1.3 mg/dL [facility] Estimated GFR 70 >=60 mL/min/1. 73 m?? [facility] Comment: This patient's estimated GFR [...] Lab Radha Hollins MD CHEMISTRY ORDERABL ES [facility] [place] [address] * Heparin (unfractionated) Level (05/10/2023 2:28 AM EDT) [facility] Heparin UFH Level 0.37 IU/mL [facility] Comment: Heparin (anti-Xa) levels should [...] Lab Radha Hollins MD HEMATOLOGY ORDERAB LES [facility] [place] [address] * (ABNORMAL) Differential, Automated (05/09/2023 4:00 AM EDT) [facility] Neutrophils % 81.7 % [facility] Neutr Abs (ANC) 5.26 1.70 - 6.10 x10(3)/mc L [facility] Lymphocytes % 10.7 % [facility] Lymphocytes Abs 0.7(L) 0.9 - 3.2 x10(3)/mc L [facility] Monocytes % 6.5 % [facility] Monocyte Abs 0.4 0.3 - 0.9 x10(3)/mc L [facility] Eosinophils % 0.5 % [facility] Eosinophils Abs 0.0 0.0 - 0.4 x10(3)/mc L [facility] Basophils % 0.3 % [facility] Basophils Abs 0.0 0.0 - 0.1 x10(3)/mc L [facility] Immature Gran % 0.30 % [facility] Comment: Immature granulocytes(IG's)percentage and absolute count will include metamyelocytes, myelocytes, and promyelocytes. Blood smears from CBCs yielding IG's will be scanned manually for concordance. If this scan disagrees with the automated IG or if promyelocytes are noted, a manual differential will be performed. Amanda Gran Abs 0.02 0.00 - 0.04 x10(3)/[facility] Blood 05/09/2023 4:00 AM EDT 05/09/2023 4:19 AM EDT Narrative Resulting Agency Comment Spec In Lab Klaudia Reid MD HEMATOLOGY OR DERABLES Performing Organization Address City/State/[facility] Co de Phone Number [facility] [place] [address] * (ABNORMAL) Hemogram (05/09/2023 4:00 AM EDT) WBC 6.4 4.0 - 9.5 x10(3)/[facility] RBC 3.15(L) 4.00 - 5.21 x10(6)/[facility] Hemoglobin 10.2(L) 11.7 - 15.5 g/dL [facility] Hematocrit 30.3(L) 35.7 - 45.8 % [facility] MCV 96.2(H) 82.6 - 94.4 fL [facility] MCH 32.4(H) 27.1 - 32.0 pg [facility] MCHC 33.7 31.7 - 35.0 g/dL [facility] Platelets 151 145 - 357 x10(3)/[facility] RDWSD 44.7 37.0 - 46.0 fL [facility] RDWCV 12.8 11.5 - 14.1 % [facility] MPV 9.4 7.6 - 12.9 fL [facility] nRBC % Auto 0.0 % [facility] nRBC Abs Auto 0.000 0.000 - 0.000 x10(3)/mcL [facility] Blood 05/09/2023 4:00 AM EDT 05/09/2023 4:19 AM EDT Narrative Resulting Agency Comment Spec In Lab Klaudia Reid MD HEMATOLOGY OR DERABLES Performing Organization Address [facility] Co de Phone Number [facility] [place] [address] * Heparin (unfractionated) Level (05/09/2023 4:00 AM EDT) Heparin UFH Level 0.47 IU/mL [facility] Comment: Heparin (anti-Xa) levels should [...] MD HEMATOLOGY ORDERAB LES Performing Organization Address [facility] Co de Phone Number [facility] [place] [address] * (ABNORMAL) Comprehensive metabolic panel (non-fasting) (05/09/2023 4:00 AM EDT) Glucose Lvl 108 65 - 199 mg/dL [facility] Comment:Diabetes: >=200 mg/d L plus symptoms BUN 31(H) 8 - 18 mg/dL [facility] Creatinine 1.03 0.70 - 1.20 mg/dL [facility] Sodium 137 135 - 145 mmol/L [facility] Potassium 4.4 3.5 - 5.0 mmol/L [facility] Comment: Please note: ??Patients with WBC >100,000 may have falsely elevated Potassium levels. ??For accurate Potassium quantification in these patients send serum separator tube (gold top) for subsequent determinations. ??Contact the Clinical Chemistry Laboratory if there are any questions. Chloride 102 98 - 107 mmol/L [facility] CO2 20(L) 22 - 31 mmol/L [facility] Anion Gap 15 5 - 15 mmol/L [facility] Calcium 9.3 8.5 - 10.5 mg/dL [facility] Total Protein 6.6 6.1 - 8.0 g/dL [facility] Albumin 3.8 3.2 - 5.2 g/dL [facility] AST 32(H) 0 - 30 unit/L [facility] ALT 18 0 - 30 unit/L [facility] Alk Phos 78 35 - 105 unit/L [facility] Total Bilirubin 0.5 0.2 - 1.3 mg/dL [facility] Estimated GFR 60 >=60 mL/min/1. 73 m?? [facility] Comment: This patient's estimated GFR [...] MD CHEMISTRY ORDERABL ES Performing Organization Address [facility]/ZIP Co de Phone Number [facility] [place] [address] * (ABNORMAL) pro-Brain Natriuretic Peptide (05/08/2023 4:00 PM EDT) ProBNP 25,503(H) <=124 pg/mL [facility] Blood Venous Draw / Unknown 05/08/2023 4:00 PM EDT 05/08/2023 4:25 PM EDT Narrative Resulting Agency Comment Spec In Lab Juan Luis Gonzalez MD CHEMISTRY ORDERABLES Performing Organization Address [facility] Co de Phone Number [facility] [place] [address] * Magnesium (05/08/2023 4:00 PM EDT) Magnesium 0.82 0.69 - 1.07 mmol/L [facility] Blood 05/08/2023 4:00 PM EDT 05/08/2023 4:06 PM EDT Narrative Resulting Agency Comment Spec In Lab Enrique Chua MD CHEMISTRY ORDERABLES Performing Organization Address [facility] Co de Phone Number [facility] [place] [phone] * Potassium (05/08/2023 4:00 PM EDT) Potassium 3.9 3.5 - 5.0 mmol/L [facility] Comment: Please note: ??Patients with [...] MD CHEMISTRY ORDERABL ES Performing Organization Address [facility] de Phone Number [facility] [place] [address] * Heparin (unfractionated) Level (05/08/2023 4:00 PM EDT) Pathologist [facility] Heparin UFH Level 0.43 IU/mL [facility] Comment: Heparin (anti-Xa) levels should [...] MD HEMATOLOGY ORDERAB LES Performing Organization Address [facility] Co de Phone Number [facility] [place] [address] * EKG 12 Lead (05/08/2023 3:51 PM EDT) Ventricular rate 98 BPM MUSE SYSTEM Atrial Rate 98 BPM MUSE SYSTEM P-R Interval 150 ms MUSE SYSTEM QRS Duration 102 ms MUSE SYSTEM Q-T Interval 358 ms MUSE SYSTEM QTC Calculated (Bezet) 457 ms MUSE SYSTEM Calculated P [place] 38 degrees MUSE SYSTEM Calculated R [place] 48 degrees MUSE SYSTEM Calculated T [place] -112 degrees MUSE SYSTEM INTERPRETATION Sinus rhythm with frequent and consecutive Premature ventricular and fusion complexes Septal infarct , age undetermined ST & T wave abnormality, consider anterolateral ischemia Abnormal ECG When compared with ECG of 09-NOV-2022 11:17, T wave inversion now evident in Anterolateral leads Confirmed by MD Harshil, Enrique Bell ([id number]) on 05/10/2023 8:11:46 AM MUSE SYSTEM 05/08/2023 3:51 PM EDT 05/10/2023 8:11 AM EDT Radha Hollins MD ECG ORDERABLES MUSE SYSTEM * (ABNORMAL) Differential, Automated (05/08/2023 11:38 AM EDT) Neutrophils % 71.3 % [facility] Neutr Abs (ANC) 2.91 1.70 - 6.10 x10(3)/[facility] Lymphocytes % 19.1 % [facility] Lymphocytes Abs 0.8(L) 0.9 - 3.2 x10(3)/[facility] Monocytes % 9.0 % [facility] Monocyte Abs 0.4 0.3 - 0.9 x10(3)/[facility] Eosinophils % 0.2 % [facility] Eosinophils Abs 0.0 0.0 - 0.4 x10(3)/[facility] Basophils % 0.2 % [facility] Basophils Abs 0.0 0.0 - 0.1 x10(3)/[facility] Immature Gran % 0.20 % [facility] Comment: Immature granulocytes(IG's)percentage and absolute count will include metamyelocytes, myelocytes, and promyelocytes. Blood smears from CBCs yielding IG's will be scanned manually for concordance. If this scan disagrees with the automated IG or if promyelocytes are noted, a manual differential will be performed. Amanda Gran Abs 0.01 0.00 - 0.04 x10(3)/[facility]ATORY Blood 05/08/2023 11:3 8 AM EDT 05/08/2023 11:44 AM EDT Narrative Resulting Agency Comment Spec In Lab Lincoln Sal MD HEMATOLOGY ORDERA BLES [facility] [place] [address] * (ABNORMAL) Hemogram (05/08/2023 11:38 AM EDT) WBC 4.1 4.0 - 9.5 x10(3)/[facility] LABORATORY RBC 3.05(L) 4.00 - 5.21 x10(6)/[facility] Hemoglobin 10.2(L) 11.7 - 15.5 g/dL [facility] Hematocrit 29.6(L) 35.7 - 45.8 % [facility] MCV 97.0(H) 82.6 - 94.4 [facility] MCH 33.4(H) 27.1 - 32.0 pg [facility] MCHC 34.5 31.7 - 35.0 g/dL [facility] Platelets 136(L) 145 - 357 x10(3)/[facility] RDWSD 44.3 37.0 - 46.0 [facility] RDWCV 12.6 11.5 - 14.1 % [facility] MPV 9.4 7.6 - 12.9 [facility] nRBC % Auto 0.0 % [facility] nRBC Abs Auto 0.000 0.000 - 0.000 x10(3)/[facility] Blood 05/08/2023 11:3 8 AM EDT 05/08/2023 11:44 AM EDT Narrative Resulting Agency Comment Spec In Lab Lincoln Sal MD HEMATOLOGY ORDERA BLES [facility] [place] [address] * TSH (05/08/2023 11:38 AM EDT) TSH 1.27 0.27 - 4.20 mcIU/mL [facility] Comment: Reference Interval (mcIU/mL): Females: ??First Trimester: 0.23-3.88 ??Second Trimester: 0.22-3.90 ??Third Trimester: 0.44-4.66 Blood 05/08/2023 11:3 8 AM EDT 05/08/2023 11:44 AM EDT Narrative Resulting Agency Comment Spec In Lab Enrique Chua MD CHEMISTRY ORDERABLES Performing Organization Address City/[facility] Co de Phone Number [facility] [place] [address] * (ABNORMAL) Phosphorus (05/08/2023 11:38 AM EDT) Phosphorus 4.7(H) 2.5 - 4.5 mg/dL [facility] Blood 05/08/2023 11:3 8 AM EDT 05/08/2023 11:44 AM EDT Narrative Resulting Agency Comment Spec In Lab Enrique Chua MD CHEMISTRY ORDERABLES Performing Organization Address City/[facility]/ZIP Co de Phone Number [facility] [place] [address] * Magnesium (05/08/2023 11:38 AM EDT) Magnesium 0.76 0.69 - 1.07 mmol/L [facility] Blood 05/08/2023 11:3 8 AM EDT 05/08/2023 11:44 AM EDT Narrative Resulting Agency Comment Spec In Lab Enrique Chua MD CHEMISTRY ORDERABLES [facility] [place] [address] * (ABNORMAL) Basic Metabolic Panel (non-fasting) (05/08/2023 11:38 AM EDT) Glucose Lvl 97 65 - 199 mg/dL [facility] Comment:Diabetes: >=200 mg/d L plus symptoms BUN 27(H) 8 - 18 mg/dL [facility] Creatinine 1.02 0.70 - 1.20 mg/dL [facility] Sodium 139 135 - 145 mmol/L [facility] Potassium 4.2 3.5 - 5.0 mmol/L [facility] Comment: Please note: ??Patients with WBC >100,000 may have falsely elevated Potassium levels. ??For accurate Potassium quantification in these patients send serum separator tube (gold top) for subsequent determinations. ??Contact the Clinical Chemistry Laboratory if there are any questions. Chloride 105 98 - 107 mmol/L [facility] CO2 20(L) 22 - 31 mmol/L [facility] Anion Gap 14 5 - 15 mmol/L [facility] Calcium 9.4 8.5 - 10.5 mg/dL [facility] Estimated GFR 60 >=60 mL/min/1. 73 m?? [facility] Comment: This patient's estimated GFR [...] Lab Enrique Chua MD CHEMISTRY ORDERABLES [facility] [place] [id number] * ECHO COMPLETE (05/08/2023 11:02 AM EDT) EF 25 HEARTLAB SYSTEM Anatomical Region Laterality Modality Cardiac Other 05/08/2023 10:0 3 AM EDT Narrative 05/08/2023 11:51 AM EDT ? Echocardiogram Report Name: PURNIMA THACKER ?Study Date: 05/08/2023 10:03 AMBP: 92/64 mmHg ? Patient Location: [facility]^CV29^A : 1955 ? Height: 155 cm ? Account: [id number] Age: 67 yrs ? Weight: 78 kg Gender: Female ?BSA: 1.8 m2 Ordering Physician: ENRIQUE CHUA Referring Physician: MARIO ALBERTO CHIN Performed By: CHUCKIE Canchola Reason For Study: SAVR Stenosis Exam Location: [facility]. Interpretation Summary -Left ventricle is severely [...] worsening stenosis. Mitral regurgitation is similar. Procedure Complete-17341. Satisfactory quality. There is normal sinus rhythm. [...] Study Date: 0:03 AMBP: 92/64 mmHg Patient Location:[facility]^CV29^A : 1955 Height: 155 cm Account: [id number] Age: 67 yrs Weight: 78 kg Gender: Female BSA: 1.8 m2 Ordering Physician: ENRIQUE CHUA Referring Physician: MARIO ALBERTO CHIN Performed By: CHUCKIE Canchola Reason For Study: SAVR Stenosis Exam Location: [facility]. Interpretation Summary -Left ventricle is severely [...] suggestsworsening stenosis. Mitral regurgitation is similar. Procedure Complete-[id number]. Satisfactory quality. There is normal sinus rhythm. 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 Mild coronary artery disease by [facility] 11/09/2022 Mixed connective tissue disease Other [...] fraction Mild coronary artery disease by [facility] 11/09/2022 Stenosis of prosthetic aortic valve [...] dose on Wed05/12/23 at 1030, Until Discontinued, [place] teeth, Routine Given 05/12/2023 10:04 AM EDT [...] at 0831, Side port TKO rate, per [facility] flush protocol Rate/Dose Verify 05/13/2023 6:00 AM EDT 10 mL/hr 10 mL/hr Rate/Dose Verify 05/13/2023 4:00 AM EDT 10 mL/hr 10 mL/h r Rate/Dose Verify 05/13/2023 2:00 AM EDT 10 mL/hr 10 mL/h r sodium chloride 0.9% infusion 10-30 mL/hr, Intravenous, DAILY PRN, Starting on Wed05/12/23 at 0944, Until Wed05/17/23 at 0831, Side port TKO rate, per [facility] flush protocol. Rate/Dose Verify 05/17/2023 8:00 [...] CONTINUOUS, Starting on Wed05/12/23 at 1030, Until [facility] 05/13/23 at 0826, Titrate to keep systolic [...] Gallego RN) 0827 (Given - Provider: Kia aGllego, VALDO) polyethylene glycoL (Miralax) packet 17 g [...] Reason: See comment)0930 (Not Given - Provider: iKa Gallego RN - Reason: See comment - [...] post-op day 1 in the AM Give RI if unable to take PO, Routine Group [...] Routine documented in this encounter Care Teams Editor Managing Newspaper Relationship Specialty Start Date End Date Magdalena Acosta MD [address] [place] [address] PCP - General Family Medicine 02/05/23 documented as of this encounter
--- OUTSIDE RECORDS SUMMARY | 2024-02-22 14:12 | XMS_ITS | Encounter Summary ---
Author Organization [facility] [place] [address] Care Team Providers Care Dancing Instructor Name Role Phone Magdalena Acosta MD Primary Care Provider [phone] Encounter Details Date Type Department Care Team (Latest Contact Info) Description 05/14/2023 Travel Social History Tobacco Use Types Packs/Day Years Used Date Smoking Tobacco: Never Smokeless Tobacco: Never Alcohol Use Standard Drinks/Week Comments No 0 (1 standard drink = 0.6 oz pur e alcohol) none [facility] Inpatient Questions Answer Date Recorded Does Anyone [...] PM EDT Office Visit Dermatology at [address] [facility] [place] [phone] Marek Bonilla MD [address] [facility] [place] [address] 06/05/2024 11:30 AM EST Office [place] [address] Magdalena Peralta MD [facility] [address] documented as of this encounter Visit Diagnoses Not on filedocumented in this encounter Care Teams Dancing Instructor Relationship Specialty Start Date End Date Magdalena Acosta MD [address] [place] [address] PCP - General Family Medicine 02/05/23 documented as of this encounter
--- OUTSIDE RECORDS SUMMARY | 2024-02-22 14:12 | XMS_ITS | Encounter Summary ---
[place] [address] Care Team Providers Care Leases And Land Supervisor Name Role Phone Magdalena Acosta MD Primary Care Provider [phone] Reason for Visit * Auth/Cert (Routine) Specialty Diagnoses / Procedures Referred By Contac t Referred To Contact Diagnoses Symptomatic severe aortic stenosis with low ejection fraction NSTEMI, CHF Haris Chua MD [facility] [place] [address] [facility] Referral ID Status Reason Start Date Expiration Date Visits Re quested Visits Authorized [id number] 1 1 Encounter Details Date Type Department Care Team (Late st Contact Info) Description 05/12/2023 7:35 AM EDT Anesthesia Event Canal Equipment [place] [address] Lynda Mcgowan MD [facility] [place] [address] [facility] [place] [address] Anesthesia Record Procedure Summary Procedure Name Responsible [...] cephalic vein (lateral side of arm), left; [id number] catheter system; Anatomical Landmarks; US Not Used; [...] RN LDA Cath/EP Sheath 05/12/23; 0733; 14 Malian (Fr); Right; Femoral; Arterial 05/12/23 0733 by Guerda Bender, RN 05/12/23 0830 by Guerda Bender RN LDA Cath/EP Sheath 05/12/23; 0734; 6 Malian (Fr); Right; Femoral; Venous 05/12/23 0734 by Guerda Bender RN 05/12/23 0817 by Guerda Bender RN LDA Cath/EP Sheath 05/12/23; 0734; 7 Malian (Fr); Left; Femoral; Arterial 05/12/23 0734 by Guerda Bender, RN 05/12/23 0837 by Guerda Bender RN LDA Cath/EP Sheath 05/12/23; 0734; 6 Malian (Fr); Left; Femoral; Venous 05/12/23 0734 by [...] Procedure Summary Date: 05/12/23 Room / Location: [facility] [employer] / [facility] Anesthesia Start: 734 Anesthesia Stop: [...] All Anesthesia Providers: Anesthesiologist: Lynda Mcgowan MD Insole And Outsole Preparer: Nico Graham MD Vitals Value Taken Time [...] 05/08/2023 ??? Mild coronary artery disease by [facility] 11/09/2022 05/08/2023 ??? Heart failure with [...] IMG S&I N/A 11/09/2022 CORONARY ANGIOGRAPHY; W [facility],POSSIBLE PCI (WRVU 5.6) performed by Nitesh Escobedo MD at [facility] ??? PRO AORTOPLAS FOR SUPRAVALV STEN N/A 09/21/2016 @AORTOPLASTY FOR SUPRAVALVULAR STENOSIS (WRVU 29.33) performed by Alirio Esparza MD at [facility] MAIN OR ??? PRO REPLACEMENT PROSTHETIC AORTIC VALVE OPEN W CARDIOPULMONARY BYPASS HOMOGRF/STENT N/A 09/21/2016 @REPLACE AORTIC VALVE, OPEN, W\CPB, W\PROSTHETIC VALVE (WRVU 41.32) performed by Alirio Esparza MD at [facility] MAIN OR Social History Tobacco Use ??? [...] 3 general, with a(n) intravenous induction Add-on [id number] TAVR. In cardiogenic shock. Has arterial line, [...] 4:15 PM EDT Office Visit Dermatology at [place] [address] [place] [address] Marek Bonilla MD [address] [place] [place] [address] 06/05/2024 11:30 AM EST Office [place] [address] [facility] [place] [address] documented as of this encounter Visit Diagnoses [...] mL/hr documented in this encounter Care Teams Leases And Land Supervisor Relationship Specialty Start Date End Date Magdalena Acosta MD [address] [place] [address] PCP - General Family Medicine 02/05/23 documented as of this encounter
[2024-02-22 14:13] VITALS: BP 114/57; PULSE 73
--- OUTSIDE RECORDS SUMMARY | 2024-02-22 14:13 | XMS_ITS | Encounter Summary ---
Author Organization [facility] [place] [address] Care Team Providers Care Time Study Clerk Name Role Phone Magdalena Acosta MD Primary Care Provider [phone] Encounter Details Date Type Department Care Team (Late st Contact Info) Description 03/29/2023 Orders Only Cardiology at [address] [phone] Ranjan Delgado MD [facility] [place] [address] Severe aortic stenosis (Primary Dx) Social History [...] PM EDT Office Visit Dermatology at [address] [facility] [place] [phone] Marek Bonilla MD [address] [facility] DERMATOLOGY [place], [place] [phone] 06/05/2024 11:30 AM EST Office [place] [phone] Magdalena Peralta MD [facility] [place] [address] Scheduled Orders Name Type Priority Associated Diagnoses [...] disorders documented in this encounter Care Teams Time Study Clerk Relationship Specialty Start Date End Date Magdalena Acosta MD [address] [place] [address] PCP - General Family Medicine 02/05/23 documented as of this encounter
--- OUTSIDE RECORDS SUMMARY | 2024-02-22 14:13 | XMS_ITS | Encounter Summary ---
Author Organization [place] [address] Care Team Providers Care End Packer Name Role Phone Deborah Quiroga APRN Primary Care Provider [phone] Encounter Details Date Type Department Care Team (Latest Contact Info) Description 07/03/2022 12:28 PM EST - 07/03/2022 1:35 PM EST Hospital Encounter Hematology [place] [address] Chronic idiopathic neutropenia Discharge Disposition: Home Social [...] 4:15 PM EDT Office Visit Dermatology at [place] [address] [place] [address] Marek Bonilla MD [address] [place] [address] [place] [address] 06/05/2024 11:30 AM EST Office Visit [place] [address] Magdalena Peralta MD [facility] [place] [address] documented as of this encounter Procedures Procedure [...] 12:40 PM EST) Neutrophils % 72.9 % [facility] Neutr Abs (ANC) 2.61 1.70 - 6.10 x10(3)/[facility] LABORATORY Lymphocytes % 18.4 % [facility] Lymphocytes Abs 0.7(L) 0.9 - 3.2 x10(3)/[facility]OR[facility]ORY Monocytes % 8.4 % [facility] Monocyte Abs 0.3 0.3 - 0.9 x10(3)/[facility]ORY Eosinophils % 0.0 % [facility] Eosinophils Abs 0.0 0.0 - 0.4 x10(3)/[facility]OR[facility]ORY Basophils % 0.3 % [facility] Basophils Abs 0.0 0.0 - 0.1 x10(3)/[facility] LABORATORY Immature Gran % 0.00 % [facility] Comment: Immature granulocytes(IG's)percentage and absolute count will include metamyelocytes, myelocytes, and promyelocytes. Blood smears from CBCs yielding IG's will be scanned manually for concordance. If this scan disagrees with the automated IG or if promyelocytes are noted, a manual differential will be performed. Amanda Gran Abs 0.00 0.00 - 0.04 x10(3)/ L [facility] Blood 07/03/2022 12:4 0 PM EST 07/03/2022 1:03 PM EST Narrative Resulting Agency Comment Spec In Lab Markel Borjas MD HEMATOLOGY ORDERAB LES [facility] [place] [place] [address] * (ABNORMAL) Hemogram (07/03/2022 12:40 PM EST) WBC 3.6(L) 4.0 - 9.5 x10(3)/[facility] LABORATORY RBC 3.61(L) 4.00 - 5.21 x10(6)/[facility] Hemoglobin 11.7 11.7 - 15.5 g/dL [facility] Hematocrit 34.5(L) 35.7 - 45.8 % [facility] MCV 95.6(H) 82.6 - 94.4 fL [facility] MCH 32.4(H) 27.1 - 32.0 pg [facility] MCHC 33.9 31.7 - 35.0 g/dL [facility] Platelets 171 145 - 357 x10(3)/[facility] RDWSD 40.5 37.0 - 46.0 [facility] LABORATORY RDWCV 11.5 11.5 - 14.1 % [facility] MPV 9.2 7.6 - 12.9 fL [facility] nRBC % Auto 0.0 % [facility] nRBC Abs Auto 0.000 0.000 - 0.000 x10(3)/[facility] Blood 07/03/2022 12:4 0 PM EST 07/03/2022 1:03 PM EST Narrative Resulting Agency Comment Spec In Lab Markel Borjas MD HEMATOLOGY ORDERAB LES [facility] [place] [place] [address] * (ABNORMAL) Comprehensive metabolic panel (non-fasting) (07/03/2022 12:40 PM EST) Glucose Lvl 92 65 - 199 mg/dL [facility] Comment:Diabetes: >=200 mg/d L plus symptoms BUN 22(H) 8 - 18 mg/dL [facility] Creatinine 0.80 0.70 - 1.20 mg/dL [facility] Sodium 139 135 - 145 mmol/L [facility] Potassium 4.2 3.5 - 5.0 mmol/L [facility] Comment: Please note: ??Patients with WBC >100,000 may have falsely elevated Potassium levels. ??For accurate Potassium quantification in these patients send serum separator tube (gold top) for subsequent determinations. ??Contact the Clinical Chemistry Laboratory if there are any questions. Chloride 105 98 - 107 mmol/L [facility] CO2 23 22 - 31 mmol/L [facility] Anion Gap 11 5 - 15 mmol/L [facility] Calcium 10.1 8.5 - 10.5 mg/dL [facility] Total Protein 7.6 6.1 - 8.0 g/dL [facility] Albumin 4.1 3.2 - 5.2 g/dL [facility] AST 25 0 - 30 unit/L [facility] ALT 14 0 - 30 unit/L [facility] Alk Phos 80 35 - 105 unit/L [facility] Total Bilirubin 0.3 0.2 - 1.3 mg/dL [facility] Estimated GFR 81 >=60 mL/min/1. 73 m?? [facility] [...] Lab Markel Borjas MD CHEMISTRY ORDERABL ES [facility] [place] [place] [address] documented in this encounter Visit Diagnoses Diagnosis Chronic idiopathic neutropenia Other neutropenia documented in this encounter Care Teams End Packer Relationship Specialty Start Date End Date Deborah Quiroga, PANCAKE PROFESSIONAL PCP - General Family Medicine 03/24/16 02/04/23 documented as of this encounter
--- OUTSIDE RECORDS SUMMARY | 2024-02-22 14:13 | XMS_ITS | Encounter Summary ---
Author Organization [facility] [place] [address] Care Team Providers Care Cartridge Filler Name Role Phone Magdalena Acosta MD Primary [...] PM EDT Office Visit Dermatology at [address] [address] Marek Bonilla MD [address] [place] [address] [place] [address] 06/05/2024 11:30 AM EST Office [place] [address] Magdalena Peralta MD [facility] [address] documented as of this encounter Visit Diagnoses Not on filedocumented in this encounter Care Teams Cartridge Filler Relationship Specialty Start Date End Date Magdalena Acosta MD [address] [place] [address] PCP - General Family Medicine 02/05/23 documented as of this encounter
--- OUTSIDE RECORDS SUMMARY | 2024-02-22 14:13 | XMS_ITS | Encounter Summary ---
[place] [address] Care Team Providers Care Supervisor Costuming Name Role Phone Magdalena Acosta MD Primary Care Provider [phone] Encounter Details Date Type Department Care Team (Latest Contact Info) Description 03/18/2023 2:30 PM EDT Laboratory Appointment Lab [address] [address] Positive FRANCISCO (antinuclear antibody) Social [...] PM EDT Office Visit Dermatology at [address] [facility] [place] [address] Marek Bonilla MD [address] [place] [address] 06/05/2024 11:30 AM EST Office [place] [address] Magdalena Peralta MD [facility] [place] [address] documented as of this encounter Procedures Procedure Name Priority Date/Time Associated Diagnosis Comments HC PCH ANATITRE (ANDPATTERN) Routine 03/18/2023 2:14 PM EDT Positive FRANCISCO (antinuclear antibody) HC C-REACTIVE PROTEIN Routine 03/18/2023 2:14 PM EDT Positive FRANCISCO (antinuclear antibody) HC DNA AB DS (COWLITZ) Routine 03/18/2023 2:14 PM EDT Positive FRANCISCO [...] 2:14 PM EDT) Neutrophils % 71.2 % [facility] Neutr Abs (ANC) 2.26 1.70 - 6.10 x10(3)/mc L [facility] Lymphocytes % 18.2 % [facility] Lymphocytes Abs 0.6(L) 0.9 - 3.2 x10(3)/[facility] Monocytes % 9.7 % [facility] Monocyte Abs 0.3 0.3 - 0.9 x10(3)/[facility] Eosinophils % 0.3 % [facility] Eosinophils Abs 0.0 0.0 - 0.4 x10(3)/[facility] Basophils % 0.6 % [facility] Basophils Abs 0.0 0.0 - 0.1 x10(3)/[facility] Immature Gran % 0.00 % [facility] Comment: Immature granulocytes(IG's)percentage and absolute count will include metamyelocytes, myelocytes, and promyelocytes. Blood smears from CBCs yielding IG's will be scanned manually for concordance. If this scan disagrees with the automated IG or if promyelocytes are noted, a manual differential will be performed. Amanda Gran Abs 0.00 0.00 - 0.04 x10(3)/[facility] Blood 03/18/2023 2:14 PM EDT 03/18/2023 2:24 PM EDT Narrative Resulting Agency Comment Spec In Lab Magdalena Peralta MD HEMATOLOGY ORDERABLE S Performing Organization Address City/State/[facility] Co de Phone Number [facility] [place] [address] * (ABNORMAL) Hemogram (03/18/2023 2:14 PM EDT) WBC 3.2(L) 4.0 - 9.5 x10(3)/[facility] RBC 3.44(L) 4.00 - 5.21 x10(6)/[facility] Hemoglobin 11.1(L) 11.7 - 15.5 g/dL [facility] Hematocrit 32.9(L) 35.7 - 45.8 % [facility] MCV 95.6(H) 82.6 - 94.4 fL [facility] MCH 32.3(H) 27.1 - 32.0 pg [facility] MCHC 33.7 31.7 - 35.0 g/dL [facility] Platelets 144(L) 145 - 357 x10(3)/[facility] RDWSD 42.6 37.0 - 46.0 [facility] RDWCV 12.3 11.5 - 14.1 % [facility] MPV 9.4 7.6 - 12.9 [facility] nRBC % Auto 0.0 % [facility] nRBC Abs Auto 0.000 0.000 - 0.000 x10(3)/[facility] Blood 03/18/2023 2:14 PM EDT 03/18/2023 2:24 PM EDT Narrative Resulting Agency Comment Spec In Lab Magdalena Peralta MD HEMATOLOGY ORDERABLE S Performing Organization Address City/[facility]/[place] [address] * (ABNORMAL) Sedimentation rate (03/18/2023 2:14 PM EDT) Sed Rate 68(H) 2 - 39 mm/hr [facility] Comment: Effective July 12, 2019 new capillary photometric technology has resulted in a change in reference ranges. It is recommended that each ESR result be reviewed with its own age appropriate reference range. Blood 03/18/2023 2:14 PM EDT 03/18/2023 2:24 PM EDT Narrative Resulting Agency Comment Spec In Lab Kia Viramontes DO HEMATOLOGY ORDERAB LES [facility] [place] [address] * CRP, acute inflammation (03/18/2023 2:14 PM EDT) CRP 3.0 <=4.9 mg/L [facility] Blood 03/18/2023 2:14 PM EDT 03/18/2023 2:24 PM EDT Narrative Resulting Agency Comment Spec In Lab Kia D Wander DO CHEMISTRY ORDERABL ES Performing Organization Address City/[facility]/ZIP Co de Phone Number [facility] [place] [address] * C3 Complement (03/18/2023 2:14 PM EDT) C3 Complement 142 90 - 180 mg/dL [facility] Blood 03/18/2023 2:14 PM EDT 03/18/2023 2:24 PM EDT Narrative Resulting Agency Comment Spec In Lab Kia D Wander DO CHEMISTRY ORDERABL ES Performing Organization Address [facility]/ZIP Co de Phone Number [facility] [place] [address] * C4 Complement (03/18/2023 2:14 PM EDT) C4 Complement 30 10 - 40 mg/dL [facility] Blood 03/18/2023 2:14 PM EDT 03/18/2023 2:24 PM EDT Narrative Resulting Agency Comment Spec In Lab Kia D Wander DO CHEMISTRY ORDERABL ES Performing Organization Address City/[facility]/ZIP Co de Phone Number [facility] [place] [address] * CK (03/18/2023 2:14 PM EDT) CK, Total 38 0 - 160 unit/L [facility] Blood 03/18/2023 2:14 PM EDT 03/18/2023 2:24 PM EDT Narrative Resulting Agency Comment Spec In Lab Kia Viramontes DO CHEMISTRY ORDERABL ES Performing Organization Address [facility] Co de Phone Number [facility] [place] [address] * DNA Antibody (Double-Stranded) (03/18/2023 2:14 PM EDT) dsDNA Ab <0.6 <=15.0 IU/mL [facility] Comment: <10 negative 10-15 equivocal >15 positive This dsDNA antibody result was generated using a fluoroenzyme immunoassay on the [employer] 250 analyzer. This quantitative test is designed to detect IgG antibodies directed against double stranded DNA in human serum. The presence of antibodies that recognize dsDNA is a highly specific marker for systemic lupus erythematosus. Please note that as of 05/26/2022 that this testing is performed by the Special [facility] Laboratory at [facility]. This change in testing location is associated with a change is testing method and reference intervals. Please review the results of this test in association with the posted reference intervals. Blood 03/18/2023 2:14 PM EDT 03/19/2023 7:19 AM EDT Narrative Resulting Agency Comment Spec In Lab Kia Viramontes DO CHEMISTRY ORDERABL Performing Organization Address [facility] de Phone Number [facility] [place] [address] * (ABNORMAL) FRANCISCO Ab by IFA (03/18/2023 2:14 PM EDT) Antinuclear Ab Test ? Result ?Flag ??Unit ??RefValue Antinuclear Ab, HEp-2 ?Positive 1:2560 ??@ ?<1:80 (Negative) ??Substrate, S ? ADDITIONAL INFORMATION --------- ?Method: Immunofluorescence using HEp-2 cellular substrate. ??FRANCISCO Titer: ? 1:2560 ??FRANCISCO Pattern: ? Speckled ?Test Performed by: ?[facility] ?[address] [place] [address] ?Gymnastics Coach Or Instructor: Raymond Chaudhry M.D. Ph.D.; CLIA# [id number] ([id number]) [facility] Blood 03/18/2023 2:14 PM EDT 03/18/2023 3:02 PM EDT Narrative Resulting Agency Comment Spec In Lab Kia Viramontes DO CHEMISTRY ORDERABL ES [facility] [place] [address] * Comprehensive metabolic panel (non-fasting) (03/18/2023 2:14 PM EDT) Glucose Lvl 93 65 - 199 mg/dL [facility] Comment:Diabetes: >=200 mg/d L plus symptoms BUN 18 8 - 18 mg/dL [facility] Creatinine 0.99 0.70 - 1.20 mg/dL [facility] Sodium 141 135 - 145 mmol/L [facility] Potassium 4.5 3.5 - 5.0 mmol/L [facility] Comment: Please note: ??Patients with WBC >100,000 may have falsely elevated Potassium levels. ??For accurate Potassium quantification in these patients send serum separator tube (gold top) for subsequent determinations. ??Contact the Clinical Chemistry Laboratory if there are any questions. Chloride 106 98 - 107 mmol/L [facility] CO2 24 22 - 31 mmol/L [facility] Anion Gap 11 5 - 15 mmol/L [facility] Calcium 10.0 8.5 - 10.5 mg/dL [facility] Total Protein 7.3 6.1 - 8.0 g/dL [facility] Albumin 4.3 3.2 - 5.2 g/dL [facility] AST 26 0 - 30 unit/L [facility] ALT 11 0 - 30 unit/L [facility] Alk Phos 91 35 - 105 unit/L [facility] Total Bilirubin 0.4 0.2 - 1.3 mg/dL [facility] Estimated GFR 62 >=60 mL/min/1. 73 m?? [facility] [...] Lab Kia Viramontes DO CHEMISTRY ORDERABL ES [facility] [place] [address] documented in this encounter Visit Diagnoses Diagnosis Positive FRANCISCO (antinuclear antibody) Other and unspecified nonspecific immunological findings documented in this encounter Care Teams Supervisor Costuming Relationship Specialty Start Date End Date Magdalena Acosta MD [address] [place] [address] PCP - General Family Medicine 02/05/23 documented as of this encounter
--- OUTSIDE RECORDS SUMMARY | 2024-02-22 14:13 | XMS_ITS | Encounter Summary ---
Author Organization Formerly [facility] [place] [address] Care Team Providers Care Cold Storage Supervisor Name Role Phone Deborah Quiroga ANURAG Primary Care Provider [phone] Encounter Details Date Type Department Care Team (Late st Contact Info) Description 11/02/2022 Orders [place] [phone] Emily Lyons [place] [facility] [place] [address] Aortic valve stenosis, etiology of cardiac valve [...] 4:15 PM EDT Office Visit Dermatology at [address] [place] [phone] Marek Bonilla MD [address] [place] [address] [place] [address] 06/05/2024 11:30 AM EST Office [place] [address] Magdalena Peralta MD [facility] [place] [address] documented as of this encounter Visit Diagnoses Diagnosis Aortic valve stenosis, etiology of cardiac valve disease unspecified documented in this encounter Care Teams Cold Storage Supervisor Relationship Specialty Start Date End Date Deborah Quiroga APRN PCP - General Family Medicine 03/24/16 02/04/23 documented as of this encounter
--- OUTSIDE RECORDS SUMMARY | 2024-02-22 14:13 | XMS_ITS | Encounter Summary ---
Author Organization [facility] [place] [address] Care Team Providers Care Psych Rn Name Role Phone Junaid Deborah Shields APRN Primary Care Provider [phone] Encounter Details Date Type Department Care Team (Latest Contact Info) Description 11/09/2022 10:37 AM EDT - 11/09/2022 4:53 PM EDT Hospital En[place] [address] Nitesh Escobedo MD [facility] [place] [address] Aortic valve stenosis, etiology of cardiac valve [...] Center 02/05/2023 2:30 PM Marek Bonilla MD [facility] New Medications to be Picked Up None For questions regarding this document or issues relating to this hospitalization on the Medical Service, please contact your inpatient physician through the [facility] Inventory Control Clerk . Issues afterhours and on weekends will be handled by the Hospitalist staff on-call. * Attachments The following attachments cannot be sent through Care Everywhere. * Coronary Angiogram: Post-op (Puerto Rican) * Right Heart Catheterization: Pulmonary Artery Catheterization: Post-op ([place]ican) documented in this encounter Medications at Time of Discharge Medication Sig Dispensed Refills Start Date End Date nystatin (MYCOSTATIN) 100,000 unit/gram Powder Apply topically 2 times daily as needed. 10/22/2022 OneTouch Verio test strips Strip USE DAILY 01/03/2022 [employer] Delica Plus Lancet 33 gauge Misc USE [...] MD - 11/09/2022 11:20 AM EDT . [facility] Interventional Cardiology Adult Pre-Procedure H&P Update: Cardiac Catheterization Purnima Thacker [id number] 1955 Chief Complaint: BONILLA HPI: Purnima Thacker [...] Marrero MD Interventional Cardiology 11/09/22 11:43 AM [facility] Pager: [phone] documented in this encounter Plan of Treatment Upcoming Encounters Date Type Department Care Team (Late st Contact Info) Description 02/22/2024 4:15 PM EDT Office Visit Dermatology at [address] [phone] Marek Bonilla MD [address] [place] [address] [place] [address] 06/05/2024 11:30 AM EST Office Visit [place] [address] Magdalena Peralta MD [facility] [place] [address] documented as of this encounter Procedures Procedure Name Priority Date/Time Associated Diagnosis Comments CARDIAC CATHETERIZATION Routine 11/10/19 1:05 PM EDT Aortic valve stenosis, etiology of cardiac valve disease unspecified Cath Plmt Left Heart Cath & Arts W/Inj & Angio Img S&I ([id number]) 11/09/2022 11:51 AM EDT Aortic valve stenosis, etiology of cardiac valve disease unspecified EKG 12-LEAD Routine 11/09/2022 11:17 AM EDT Aortic valve stenosis, etiology of cardiac valve disease unspecified documented in this encounter Results * CARDIAC CATHETERIZATION (11/09/2022 1:05 PM EDT) Anatomical Region Laterality Modality Other Narrative 11/09/2022 2:01 PM EDT ?[facility] ? Cardiac Catheterization/Intervention Report ? Patient Name: Purnima Thacker. ? Procedure Date: 11/09/2022 ? A #: [id number] ? Primary Physician: Nitesh Escobedo ? Case #: [id number] ? File Name: [id number] ? Catheterization Order Number: [id number] ? [facility] ? Final Report [place], [place] ? Patient Name: ? Purnima M. Kirstie ? ID#: ?[id number] ? : ?1955 ? Procedure Date: ? [...] was designated as ASA Class III. The [facility] clinical frailty scale ?is 4: Vulnerable. [...] (Bezet) 457 ms MUSE SYSTEM Calculated P [place] 44 degrees MUSE SYSTEM Calculated R [place] 33 degrees MUSE SYSTEM Calculated T [place] 30 degrees MUSE SYSTEM INTERPRETATION Sinus rhythm Occasional Premature ventricular complexes Otherwise normal ECG When compared with ECG of 21-SEP-2016 12:26, Premature ventricular complexes are now Present FL interval has decreased Nonspecific T wave abnormality has replaced inverted T waves in Inferior leads I personally reviewed the tracing and edited the fellows interpretation Confirmed by fellow MD Anitha, [facility] ([id number]) on 11/09/2022 6:17:28 PM Confirmed by Elsa [...] (Recovery-Hospital Unit) 1330 (Continued Bag - Provider: Sbele Espinoza RN) PRN Medication Order 11/07/2022 11/08/2022 [...] MD) documented in this encounter Care Teams Psych Rn Relationship Specialty Start Date End Date Deborah Quiroga, ANURAG PCP - General Family Medicine 03/24/16 02/04/23 documented as of this encounter
--- OUTSIDE RECORDS SUMMARY | 2024-02-22 14:13 | XMS_ITS | Encounter Summary ---
[place] [address] Care Team Providers Care Unit Manager [employer] Name Role Phone Magdalena Acosta MD Primary Care Provider [phone] Reason for Visit * Reason Comments Skin Lesion Encounter Details Date Type Department Care Team (Late st Contact Info) Description 04/20/2023 10:00 AM EDT Office Visit Dermatology at [address] [address] Marek Bonilla MD [address] [facility] [place] [address] Seborrheic keratosis Social History Tobacco Use Types [...] cutaneous and ocular 3. Previously told by elder counselor that she had corneal tears from her [...] 4:15 PM EDT Office Visit Dermatology at [place] [address] [place] [address] Marek Bonilla MD [address] [facility] [place] [address] 06/05/2024 11:30 AM EST Office [place] [address] Magdalena Peralta MD [facility] [place] [address] documented as of this encounter Visit Diagnoses Diagnosis Seborrheic keratosis Other seborrheic keratosis documented in this encounter Care Teams Unit Manager [employer] Relationship Specialty Start Date End Date Magdalena Acosta MD [address] [place] [address] PCP - General Family Medicine 02/05/23 documented as of this encounter
--- OUTSIDE RECORDS SUMMARY | 2024-02-22 14:13 | XMS_ITS | Encounter Summary ---
Author Organization [facility] Address [facility] [place] [address] Care Team Providers Care Aids Social Worker Name Role Phone Magdalena Acosta MD Primary Care Provider [phone] Encounter Details Date Type Department Care Team (Late st Contact Info) Description 02/17/2023 2:00 PM EDT Office Visit [place] [address] Alirio Esparza MD [facility] DR C[place] [address] Aortic valve stenosis, etiology of cardiac valve [...] documented in this encounter Progress Notes * Aliiro Esparza MD - 02/17/2023 2:00 PM EDT [...] 4:15 PM EDT Office Visit Dermatology at [place] [address] [facility] [address] [facility] [place] [phone] Marek Bonilla MD [address] [facility] [place] [address] 06/05/2024 11:30 AM EST Office [place] [address] Magdalena Peralta MD [facility] [place] [address] documented as of this encounter Visit Diagnoses Diagnosis Aortic valve stenosis, etiology of cardiac valve disease unspecified documented in this encounter Care Teams Aids Social Worker Relationship Specialty Start Date End Date Magdalena Acosta MD [address] [place] [address] PCP - General Family Medicine 02/05/23 documented as of this encounter
--- OUTSIDE RECORDS SUMMARY | 2024-02-22 14:13 | XMS_ITS | Encounter Summary ---
Author Organization [facility] [place] [address] Care Team Providers Care Bakery Worker Name Role Phone Magdalena Acosta MD Primary Care Provider [phone] Reason for Visit * Consultation (Routine) - Authorized Specialty Diagnoses / Procedures Referred By Contkrystle t Referred To Contact Rheumatology Diagnoses Weakness Kyra Haas MD [facility] [address] [place] [address] [facility] Rheumatology [address] [place] [phone] Referral ID Status Reason Start Date Expiration Date Visits Requested Visits Authorized [id number] Authorized Consult, Test & Treat PCP Updated and/or Approved 02/25/2023 02/25/2024 6 6 Encounter Details Date Type Department Care Team (Late st Contact Info) Description 03/18/2023 1:00 PM EDT [place] [address] Kia Viramontes DO [facility] [place] [address] Magdalena Peralta MD [facility] [place] [address] Positive FRANCISCO (antinuclear antibody) Social [...] 1:5120 speckled VIC negative Myositis panel with INSTALLATION SPECIALIST ab 149.1 (positive) Anti U1RNP IgG 119 [...] a chair without assistance of upper extremities. School Principal strength 3+/5 bilaterally; otherwise large muscle groups [...] due to risk of retinal toxicity with shelter Plaquenil use, which she already does. Recommendations: #mixed connective tissue disease Start hydroxychloroquine 200 mg qd Labs today: repeat FRANCISCO, dsDNA, complements, CBC, CMP, CK, ESR, CRP Follow up 1 month The patient was seen and discussed with Dr. Wander Peralta MD Rheumatology Fellow Pager: [phone] CC: Kyra Haas * Kia Viramontes DO - 03/18/2023 1:00 PM EDT ATTENDING ADDENDUM The patient's history was reviewed, and I interviewed and examined the patient with Dr. Peralta. Catalina with her summary, findings, and plan. documented in this encounter Plan of Treatment Upcoming Encounters Date Type Department Care Team (Late st Contact Info) Description 02/22/2024 4:15 PM EDT Office Visit Dermatology at [place] [address] [place] [address] Marek Bonilla MD [address] [facility] [place] [address] 06/05/2024 11:30 AM EST Office [place] [address] Magdalena Peralta MD [facility] [place] [address] documented as of this encounter Results * Comprehensive metabolic panel (non-fasting) (03/18/2023 2:14 PM EDT) [facility] Glucose Lvl 93 65 - 199 [...] ORDERABL ES [facility] [place] [address] * (ABNORMAL) FRANCISCO Ab by IFA (03/18/2023 2:14 PM EDT) Antinuclear Ab Test ? Result ?Flag ??Unit ??RefValue Antinuclear Ab, HEp-2 ?Positive 1:2560 ??@ ?<1:80 (Negative) ??Substrate, S ? ADDITIONAL INFORMATION --------- ?Method: Immunofluorescence using HEp-2 cellular substrate. ??FRANCISCO Titer: ? 1:2560 ??FRANCISCO Pattern: ? Speckled ?Test Performed by: ?[facility] ?[address] [place] [address] ?Sales And Marketing Vice President: Raymond Chaudhry M.D. Ph.D.; CLIA# [id number] ([id number]) [facility] Blood 03/18/2023 2:14 PM EDT 03/18/2023 3:02 PM EDT Narrative Resulting Agency Comment Spec In Lab Kia Viramontes DO CHEMISTRY ORDERABL ES [facility] [place] [address] * DNA Antibody (Double-Stranded) (03/18/2023 2:14 PM EDT) dsDNA Ab <0.6 <=15.0 IU/mL [facility] Comment: <10 negative 10-15 equivocal >15 positive This dsDNA antibody result was generated using a fluoroenzyme immunoassay on the [employer] 250 analyzer. This quantitative test is designed to detect IgG antibodies directed against double stranded DNA in human serum. The presence of antibodies that recognize dsDNA is a highly specific marker for systemic lupus erythematosus. Please note that as of 05/26/2022 that this testing is performed by the Special Chemistry Laboratory at [facility]. This change in testing location is associated with a change is testing method and reference intervals. Please review the results of this test in association with the posted reference intervals. Blood 03/18/2023 2:14 PM EDT 03/19/2023 7:19 AM EDT Narrative Resulting Agency Comment Spec In Lab Kia Mossew DO CHEMISTRY ORDERABL ES Performing Organization Address [facility] Co de Phone Number [facility] [place] [address] * CK (03/18/2023 2:14 PM EDT) CK, Total 38 0 - 160 unit/L [facility] Blood 03/18/2023 2:14 PM EDT 03/18/2023 2:24 PM EDT Narrative Resulting Agency Comment Spec In Lab Kia Erika Wander DO CHEMISTRY ORDERABL ES Performing Organization Address [facility] Co de Phone Number [facility] [place] [address] * C4 Complement (03/18/2023 2:14 PM EDT) C4 Complement 30 10 - 40 mg/dL [facility] Blood 03/18/2023 2:14 PM EDT 03/18/2023 2:24 PM EDT Narrative Resulting Agency Comment Spec In Lab Kia Erika Wander DO CHEMISTRY ORDERABL ES Performing Organization Address [facility] Co de Phone Number [facility] [place] [address] * C3 Complement (03/18/2023 2:14 PM EDT) C3 Complement 142 90 - 180 mg/dL [facility] Blood 03/18/2023 2:14 PM EDT 03/18/2023 2:24 PM EDT Narrative Resulting Agency Comment Spec In Lab Kia D Wander DO CHEMISTRY ORDERABL ES Performing Organization Address [facility]/ZIP Co de Phone Number [facility] [place] [address] * CRP, acute inflammation (03/18/2023 2:14 PM EDT) CRP 3.0 <=4.9 mg/L [facility] Blood 03/18/2023 2:14 PM EDT 03/18/2023 2:24 PM EDT Narrative Resulting Agency Comment Spec In Lab Kia Erika Wander HALL CHEMISTRY ORDERABL ES Performing Organization Address [facility] Co de Phone Number [facility] [place] [address] * (ABNORMAL) Sedimentation rate (03/18/2023 2:14 PM [...] Mossew HEMATOLOGY ORDERAB LES Performing Organization Address [facility] Co de Phone Number [facility] [place] [address] documented in this encounter Visit Diagnoses Diagnosis Positive FRANCISCO (antinuclear antibody) Other and unspecified nonspecific immunological findings documented in this encounter Care Teams Bakery Worker Relationship Specialty Start Date End Date Magdalena Acosta MD [address] [place] [address] PCP - General Family Medicine 02/05/23 documented as of this encounter
--- OUTSIDE RECORDS SUMMARY | 2024-02-22 14:13 | XMS_ITS | Encounter Summary ---
Author Organization [facility] [place] [address] Care Team Providers Care Child Protective Services Specialist Name Role Phone Junaid Deborah Shields APRN Primary Care Provider [phone] Encounter Details Date Type Department Care Team (Late st Contact Info) Description 11/09/2022 11:30 AM EDT - 11/09/2022 12:30 PM EDT [place] [address] Nitesh Escobedo MD [facility] [place] [address] CARDIAC CATHETERIZATION Social History Tobacco Use Types [...] Center 02/05/2023 2:30 PM Marek Bonilla MD [facility] [place] New Medications to be Picked Up None For questions regarding this document or issues relating to this hospitalization on the Medical Service, please contact your inpatient physician through the [facility] Locomotive Pipe Fitter . Issues afterhours and on weekends will be handled by the Hospitalist staff on-call. * Attachments The following attachments cannot be sent through Care Everywhere. * Coronary Angiogram: Post-op (Indonesian) * Right Heart Catheterization: Pulmonary Artery Catheterization: Post-op (Indonesian) documented in this encounter Medications at Time of Discharge Medication Sig Dispensed Refills Start Date End Date nystatin (MYCOSTATIN) 100,000 unit/gram Powder Apply topically 2 times daily as needed. 10/22/2022 OneTouch Verio test strips Strip USE DAILY 01/03/2022 GochikuruTouch Delica Plus Lancet 33 gauge Misc USE [...] MD - 11/09/2022 11:20 AM EDT . [facility] Interventional Cardiology Adult Pre-Procedure H&P Update: Cardiac Catheterization Purnima Thacker [id number] 1955 Chief Complaint: BONILLA HPI: Purnima Thacker [...] Marrero MD Interventional Cardiology 11/09/22 11:43 AM [facility] Pager: [phone] documented in this encounter Plan of Treatment Upcoming Encounters Date Type Department Care Team (Late st Contact Info) Description 02/22/2024 4:15 PM EDT Office Visit Dermatology at [place] [address] [place] [address] Marek Bonilla MD [address] [facility] [place] [address] 06/05/2024 11:30 AM EST Office [place] [address] Magdalena Peralta MD [facility] [place] [address] documented as of this encounter Procedures Procedure Name Priority Date/Time Associated Diagnosis Comments CARDIAC CATHETERIZATION Routine 11/10/19 23 1:05 PM EDT Aortic valve stenosis, etiology of cardiac valve disease unspecified Cath Plmt Left Heart Cath & Arts W/Inj & Angio Img S&I ([id number]) 11/09/2022 11:51 AM EDT Aortic valve stenosis, etiology of cardiac valve disease unspecified EKG 12-LEAD Routine 11/09/2022 11:17 AM EDT Aortic valve stenosis, etiology of cardiac valve disease unspecified documented in this encounter Results * CARDIAC CATHETERIZATION (11/09/2022 1:05 PM EDT) Anatomical Region Laterality Modality Other Narrative 11/09/2022 2:01 PM EDT ?[facility] ? Cardiac Catheterization/Intervention Report ? Patient Name: Kirstie, Purnima M. ? Procedure Date: 11/09/2022 ? A #: [id number] ? Primary Physician: Nitesh Escobedo ? Case #: [id number] ? File Name: [id number] ? Catheterization Order Number: [id number] ? [facility] ? Final Report [place], [place] ? Patient Name: ? Purnima M. Kirstie ? ID#: ?[id number] ? : ?1955 ? Procedure Date: ? [...] was designated as ASA Class III. The [facility] clinical frailty scale ?is 4: Vulnerable. [...] (Bezet) 457 ms MUSE SYSTEM Calculated P [place] 44 degrees MUSE SYSTEM Calculated R [place] 33 degrees MUSE SYSTEM Calculated T [place] 30 degrees MUSE SYSTEM INTERPRETATION Sinus rhythm Occasional Premature ventricular complexes Otherwise normal ECG When compared with ECG of 21-SEP-2016 12:26, Premature ventricular complexes are now Present AK interval has decreased Nonspecific T wave abnormality has replaced inverted T waves in Inferior leads I personally reviewed the tracing and edited the fellows interpretation Confirmed by fellow MD Anitha, Carissa ([id number]) on 11/09/2022 6:17:28 PM Confirmed by Elsa [...] MD) documented in this encounter Care Teams Child Protective Services Specialist Relationship Specialty Start Date End Date Deborah Quiroga, TIRE SPOTTER PCP - General Family Medicine 03/24/16 02/04/23 documented as of this encounter
--- OUTSIDE RECORDS SUMMARY | 2024-02-22 14:13 | XMS_ITS | Encounter Summary ---
Author Organization [facility] [place] [address] Care Team Providers Care Mock Up Maker Name Role Phone Magdalena Acosta MD Primary Care Provider [phone] Encounter Details Date Type Department Care Team [...] PM EDT Office Visit Dermatology at [address] [address] Marek Bonilla MD [address] [place] [address] [place] [address] 06/05/2024 11:30 AM EST Office [place] [address] Magdalena Peralta MD [facility] [place] [address] documented as of this encounter Visit Diagnoses Not on filedocumented in this encounter Care Teams Mock Up Maker Relationship Specialty Start Date End Date Magdalena Acosta MD [address] [place] [address] PCP - General Family Medicine 02/05/23 documented as of this encounter
--- OUTSIDE RECORDS SUMMARY | 2024-02-22 14:13 | XMS_ITS | Encounter Summary ---
[place] [address] Care Team Providers Care Department Of Sociology Chair Name Role Phone Magdalena Acosta MD Primary Care Provider [phone] Reason for Visit * Reason Comments Annual Exam Encounter Details Date Type Department Care Team (Late st Contact Info) Description 02/05/2023 2:30 PM EDT Office Visit Dermatology at [address] [address] Marek Bonilla MD [address] [facility] [place] [address] Rosacea; Ocular rosacea; Nevus Social History Tobacco [...] cutaneous and ocular 2. Previously told by control director that she had corneal tears from her [...] PM EDT Office Visit Dermatology at [address] [phone] Marek Bonilla MD [address] [place] [address] [place] [address] 06/05/2024 11:30 AM EST Office [place] [address] Magdalena Peralta MD [facility] [place] [address] documented as of this encounter Visit Diagnoses Diagnosis Rosacea Ocular rosacea Rosacea Nevus Benign neoplasm of skin, site unspecified documented in this encounter Care Teams Department Of Sociology Chair Relationship Specialty Start Date End Date Magdalena Acosta MD [address] [place] [address] PCP - General Family Medicine 02/05/23 documented as of this encounter
--- OUTSIDE RECORDS SUMMARY | 2024-02-22 14:13 | XMS_ITS | Encounter Summary ---
Author Organization [facility] [place] [address] Care Team Providers Care Supervisor Cell Operation Name Role Phone Magdalena Acosta MD Primary Care Provider [phone] Encounter Details Date Type Department Care Team (Latest Contact Info) Description 02/05/2023 9:33 PM EDT - 02/05/2023 11:59 PM EDT [place] [phone] Discharge Disposition: Home Social History Tobacco Use [...] 4:15 PM EDT Office Visit Dermatology at [place] [address] [facility] [place] [address] Marek Bonilla MD [address] [place] [address] [place] [address] 06/05/2024 11:30 AM EST Office [place] [address] Magdalena Peralta MD [facility] [place] [address] documented as of this encounter Procedures Procedure Name Priority Date/Time Associated Diagnosis Comments SURGICAL PATHOLOGY REPORT Routine 02/05/2023 3:00 PM EDT documented in this encounter Results * Surgical Pathology Report (02/05/2023 3:00 PM EDT) FINAL DIAGNOSIS (AP) -[id number] ? Location: OPW The signing pathologist has (i) examined the relevant preparation(s) for the specimen(s) and (ii) rendered or confirmed the diagnosis(es). . ?Surgical Pathology DIAGNOSIS Left upper back, skin punch biopsy: - ??Compound dysplastic ??melanocytic nevus with moderate atypia, transected at peripheral specimen edges ?? (see discussion) Electronically signed by: ?Vanna CULP, Jesse Shields Verified: ??02/16/2023 8:04 ?? Dermatopathologist Performed at: ??-[facility] Dept. of Pathology, [place] [address] Supervisor Insecticide: Kunal Rubi MD, FCAP, ??CLIA Certificate: [id number] DISCUSSION If there is an obvious clinical [...] submitted in 1 cassette labeled A1. ??sns 02/16/2023 8:04 AM EDT [facility] 02/05/2023 3:00 PM EDT Marek Bonilal MD PATHOLOGY/CYTOLOGY O RDERABLES [facility] [place] [address] documented in this encounter Visit Diagnoses Not on filedocumented in this encounter Care Teams Supervisor Cell Operation Relationship Specialty Start Date End Date Magdalena Acosta MD [address] [place] [address] PCP - General Family Medicine 02/05/23 documented as of this encounter
--- OUTSIDE RECORDS SUMMARY | 2024-02-22 14:13 | XMS_ITS | Encounter Summary ---
Author Organization [facility] Address [facility] [place] [address] Care Team Providers Care Sausage Inspector Name Role Phone Ashley Quirogan Sylvia ANURAG Primary Care Provider [phone] Encounter Details Date Type Department Care Team (Late st Contact Info) Description 01/14/2023 Refill Dermatology at [address] [address] Lupe Connor RN Social History [...] She would like the medication called into [facility]. Discussed with Dr. Bonilla and he has approved refill of the Doxycycline 50 mg take one capsule by mouth daily in the evenings dispense 30 capsules with 2 refills. Patient notified. documented in this encounter Plan of Treatment Upcoming Encounters Date Type Department Care Team (Late st Contact Info) Description 02/22/2024 4:15 PM EDT Office Visit Dermatology at [place] [address] [place] [address] Marek Bonilla MD [address] [place] [address] 06/05/2024 11:30 AM EST Office [place] [address] Magdalena Peralta MD [facility] [place] [address] documented as of this encounter Visit Diagnoses Not on filedocumented in this encounter Care Teams Sausage Inspector Relationship Specialty Start Date End Date Deborah Quiroga APRN PCP - General Family Medicine 03/24/16 02/04/23 documented as of this encounter
--- OUTSIDE RECORDS SUMMARY | 2024-02-22 14:13 | XMS_ITS | Encounter Summary ---
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 documented in this encounter Plan of Treatment Upcoming Encounters Date Type Department Care Team (Late st Contact Info) Description 02/22/2024 4:15 PM EDT Office Visit Dermatology at [place] [address] [place] [address] Marek Bonilla MD [address] [facility] [place] [address] 06/05/2024 11:30 AM EST Office [place] [address] Magdalena Peralta MD [facility] [place] [address] documented as of this encounter Visit Diagnoses Not on filedocumented in this encounter Care Teams Radio Interference Trouble Shooter Relationship Specialty Start Date End Date Magdalena Acosta MD [address] [place] [address] PCP - General Family Medicine 02/05/23 documented as of this encounter
--- OUTSIDE RECORDS SUMMARY | 2024-02-22 14:13 | XMS_ITS | Encounter Summary ---
Author Organization [facility] [address] Care Team Providers Care Counselor Supervisor Name Role Phone Magdalena Acosta MD Primary Care Provider [phone] Encounter Details Date Type Department Care Team [...] PM EDT Office Visit Dermatology at [address] [address] Marek Bonilla MD [address] [place] [address] [place] [address] 06/05/2024 11:30 AM EST [place] [address] Magdalena Peralta MD [facility] [place] [address] documented as of this encounter Visit Diagnoses Not on filedocumented in this encounter Care Teams Counselor Supervisor Relationship Specialty Start Date End Date Magdalena Acosta MD [address] [place] [address] PCP - General Family Medicine 02/05/23 documented as of this encounter
--- OUTSIDE RECORDS SUMMARY | 2024-02-22 14:13 | XMS_ITS | Encounter Summary ---
Author Organization [facility] [place] [address] Care Team Providers Care Escrow Representative Name Role Phone Deborah Quiroga APRN Primary Care Provider [phone] Reason for Referral * Consultation (Routine) - Closed Specialty Diagnoses / Procedures Referred By Crispin maxwell Referred To Contact Neurology Diagnoses Polyneuropathy Deborah Quiroga APRN [address] [place] [address] [facility] [address] [place] [phone] Referral ID Status Reason Start Date Expiration Date V isits Requested Visits Authorized [id number] Closed Consult, Test & Treat 10/29/2022 10/29/2023 1 1 Encounter Details Date Type Department Care Team (Latest Contact Info) Description 10/29/2022 Transcribe Orders eDH Incoming Referrals [phone] Deborah Quiroga APRN [address] [place] [address] Polyneuropathy (Primary Dx) Social History [...] 4:15 PM EDT Office Visit Dermatology at [place] [address] [place] [address] Marek Bonilla MD [address] [address] [place] [address] 06/05/2024 11:30 AM EST Office Visit [place] [address] Magdalena Peralta MD [facility] [place] [address] Scheduled Referrals Name Type Priority Associated Diagnoses Orde r Schedule Referral to Neurology Outpatient Referral Routine Polyneuropathy Ordered: 10/29/2022 documented as of this encounter Visit Diagnoses Diagnosis Polyneuropathy- Primary Unspecified hereditary and idiopathic peripheral neuropathy documented in this encounter Care Teams Escrow Representative Relationship Specialty Start Date End Date Deborah Quiroga APRN PCP - General Family Medicine 03/24/16 02/04/23 documented as of this encounter
--- OUTSIDE RECORDS SUMMARY | 2024-02-22 14:13 | XMS_ITS | Encounter Summary ---
Author Organization [facility] [place] [address] Care Team Providers Care Roll On Worker Name Role Phone Magdalena Acosta MD Primary Care Provider [phone] Encounter Details Date Type Department Care Team [...] PM EDT Office Visit Dermatology at [address] [address] Marek Bonilla MD [address] [place] [address] [place] [address] 06/05/2024 11:30 AM EST [place] [address] Magdalena Peralta MD [facility] [place] [address] documented as of this encounter Visit Diagnoses Not on filedocumented in this encounter Care Teams Roll On Worker Relationship Specialty Start Date End Date Magdalena Acosta MD [address] [place] [address] PCP - General Family Medicine 02/05/23 documented as of this encounter
--- OUTSIDE RECORDS SUMMARY | 2024-02-22 14:13 | XMS_ITS | Encounter Summary ---
Author Organization [place] [address] Care Team Providers Care Room Service Food Server Name Role Phone Deborah Quiroga APRN Primary Care Provider [phone] Encounter Details Date Type Department Care Team (Latest Contact Info) Description 07/03/2022 1:36 PM EST - 07/03/2022 11:59 PM EST Hospital Encounter Hematology [place] [address] Discharge Disposition: Home Social History Tobacco Use [...] 4:15 PM EDT Office Visit Dermatology at [place] [address] [place] [address] Marek Bonilla MD [address] [facility] [place] [address] 06/05/2024 11:30 AM EST Office [place] [address] Magdalena Peralta MD [facility] [address] [place] [address] documented as of this encounter Procedures Procedure Name Priority Date/Time Associated Diagnosis Comments FOLATE, SERUM Routine 07/03/2022 1:59 PM EST VITAMIN B12 Routine 07/03/2022 1:59 PM EST documented in this encounter Results * Folate, serum (07/03/2022 1:59 PM EST) Folate Lvl >20.0 4.8 - 24.2 ng/mL [facility] Blood Venous Draw / Unknown 07/03/2022 1:59 PM EST 07/03/2022 2:13 PM EST Narrative Resulting Agency Comment Spec In Lab Markel Borjas MD CHEMISTRY ORDERABL ES Performing Organization Address City/[facility]/ZIP Co de Phone Number [facility] [place] [address] * Vitamin B12 (07/03/2022 1:59 PM EST) Vitamin B-12 449 232 - 1,245 pg/mL [facility] Blood Venous Draw / Unknown 07/03/2022 1:59 PM EST 07/03/2022 2:13 PM EST Narrative Resulting Agency Comment Spec In Lab Markel Borjas MD CHEMISTRY ORDERABL ES Performing Organization Address [facility]/ZIP Co de Phone Number [facility] [place] [address] documented in this encounter Visit Diagnoses Not on filedocumented in this encounter Care Teams Room Service Food Server Relationship Specialty Start Date End Date Deborah Quiroga APRN PCP - General Family Medicine 03/24/16 02/04/23 documented as of this encounter
--- OUTSIDE RECORDS SUMMARY | 2024-02-22 14:13 | XMS_ITS | Encounter Summary ---
Author Organization [facility] [place] [address] Care Team Providers Care Customer Success Representative Name Role Phone Magdalena Acosta MD Primary Care Provider [phone] Encounter Details Date Type Department Care Team (Late st Contact Info) Description 05/08/2023 [place] [id number] Luis Felipe Ott MD [facility] [place] [address] Social History Tobacco Use Types Packs/Day Years [...] 0426 Referring Provider: Nitesh Baltazar Patient Location: [facility] Presenting Symptoms per OSH: 67 year [...] diuresis with IV furosemide 20 x 1 (/47 at rheumatology appointment), SpO2 85% on RA -> 95% on 2L NC, HR 120s. Examination significant for decreased breath sounds at the bases. Pertinent Diagnostic Findings: CBC - Hgb 10.5 CMP - Cr 1.1 BNP 01752 HsTrop 1358 Lactate 1.6 D-dimer 1183, CTPE pending CXR demonstrated pulmonary vascular congestion US showed bilateral b lines Bedside echo reportedly similar to prior TTE for LV function OSH Interventions: ASA 324 Heparin gtt Plan: Transfer to [facility] Above recommendations/plans are based on my conversation with the referring provider. I have not personally interviewed or examined this patient. Luis Felipe Ott MD Senior Scheduler Received a call from provider emergently at 715am. Mentating well and BP 87/53. HR 108 and diursingwell. They were about to start phenylephrine which I stressed was not a good option given concern for severe and increasing afterload. She is warm on exam, mentating and urinating and we do not need to amrit a BP if those things remain stable. Nico Segura, PGY-6 Senior Scheduler [id number] documented in this encounter Plan of Treatment Upcoming Encounters Date Type Department Care Team (Late st Contact Info) Description 02/22/2024 4:15 PM EDT Office Visit Dermatology at [place] [address] [place] [phone] Marek Bonilla MD [address] [place] [address] 06/05/2024 11:30 AM EST Office [place] [address] Magdalena Peralta MD [facility] [address] documented as of this encounter Visit Diagnoses Not on filedocumented in this encounter Care Teams Customer Success Representative Relationship Specialty Start Date End Date Magdalena Acosta MD [address] [place] [address] PCP - General Family Medicine 02/05/23 documented as of this encounter
--- OUTSIDE RECORDS SUMMARY | 2024-02-22 14:13 | XMS_ITS | Encounter Summary ---
[place] [address] Care Team Providers Care Pensions Retirement Plan Specialist Name Role Phone Magdalena Acosta MD Primary Care Provider [phone] Reason for Visit * Reason Comments Suture / Staple Removal Encounter Details Date Type Department Care Team (Late st Contact Info) Description 02/16/2023 10:00 AM EDT Office Visit Dermatology at [address] [phone] Marek Bonilla MD [address] [facility] DERMATOLOGY [place], [place] [phone] Visit for suture removal Social History Tobacco [...] 4:15 PM EDT Office Visit Dermatology at [place] [address] [place] [address] Marek Bonilla MD [address] [facility] [address] [place] [address] 06/05/2024 11:30 AM EST [place] [address] Magdalena Peralta MD [facility] [place] [address] documented as of this encounter Visit Diagnoses Diagnosis Visit for suture removal Encounter for removal of sutures documented in this encounter Care Teams Pensions Retirement Plan Specialist Relationship Specialty Start Date End Date Magdalena Acosta MD [address] [place] [address] PCP - General Family Medicine 02/05/23 documented as of this encounter
--- OUTSIDE RECORDS SUMMARY | 2024-02-22 14:13 | XMS_ITS | Encounter Summary ---
Author Organization [facility] [place] [address] Care Team Providers Care Sap Payroll Consultant Name Role Phone Magdalena Acosta MD Primary Care Provider [phone] Encounter Details Date Type Department Care Team [...] PM EDT Office Visit Dermatology at [address] [address] Marek Bonilla MD [address] [place] [address] [place] [address] 06/05/2024 11:30 AM EST [place] [address] Magdalena Peralta MD [facility] [place] [address] documented as of this encounter Visit Diagnoses Not on filedocumented in this encounter Care Teams Sap Payroll Consultant Relationship Specialty Start Date End Date Magdalena Acosta MD [address] [place] [address] PCP - General Family Medicine 02/05/23 documented as of this encounter
--- OUTSIDE RECORDS SUMMARY | 2024-02-22 14:13 | XMS_ITS | Encounter Summary ---
[place] [address] Care Team Providers Care Tax Assistant Name Role Phone Magdalena Acosta MD Primary Care Provider [phone] Reason for Referral * Consultation (Routine) - Authorized Specialty Diagnoses / Procedures Referred By Contac t Referred To Contact Rheumatology Diagnoses Weakness Kyra Haas MD [facility] [address] [place] [address] [facility] [address] [place] [phone] Referral ID Status Reason Start Date Expiration Date Visits Requested Visits Authorized [id number] Authorized Consult, Test & Treat PCP Updated and/or Approved 02/25/2023 02/25/2024 6 6 Encounter Details Date Type Department Care Team (Late st Contact Info) Description 02/25/2023 Transcribe Orders eDH Incoming Referrals [phone] Magdalena Acosta MD [address] [place] [address] Weakness Social History Tobacco Use [...] 4:15 PM EDT Office Visit Dermatology at [place] [address] [place] [address] Marek Bonilla MD [address] [place] [address] 06/05/2024 11:30 AM EST Office Visit [place] [address] Magdalena Peralta MD [facility] [place] [address] Scheduled Referrals Name Type Priority Associated Diagnoses Order Schedule Referral to Rheumatology Outpatient Referral Routine Weakness Ordered: 02/25/2023 documented as of this encounter Visit Diagnoses Diagnosis Weakness Other malaise and fatigue documented in this encounter Care Teams Tax Assistant Relationship Specialty Start Date End Date Magdalena Acosta MD [address] [place] [address] PCP - General Family Medicine 02/05/23 documented as of this encounter
--- OUTSIDE RECORDS SUMMARY | 2024-02-22 14:13 | XMS_ITS | Encounter Summary ---
Author Organization [facility] Address [facility] [address] Care Team Providers Care Yard Conductor Name Role Phone Magdalena Acosta MD Primary Care Provider [phone] Encounter Details Date Type Department Care Team (Late st Contact Info) Description 04/27/2023 3:00 PM EDT Office [place] [address] Magdalena Peralta MD [facility] [place] [address] Mixed connective tissue disease Social History Tobacco [...] 1:5120 speckled; VIC negative; Myositis panel with BRAILLE TYPIST ab 149.1 (positive); Anti U1RNP IgG 119; [...] 4:15 PM EDT Office Visit Dermatology at [place] [address] [facility] [place] [address] Marek Bonilla MD [address] [facility] [place] [address] 06/05/2024 11:30 AM EST Office [place] [address] Magdalena Peralta MD [facility] [place] [address] documented as of this encounter Visit Diagnoses Diagnosis Mixed connective tissue disease Other specified diffuse disease of connective tissue documented in this encounter Care Teams Yard Conductor Relationship Specialty Start Date End Date Magdalena Acosta MD [address] [place] [address] PCP - General Family Medicine 02/05/23 documented as of this encounter
--- OUTSIDE RECORDS SUMMARY | 2024-02-22 14:13 | XMS_ITS | Encounter Summary ---
Author Organization [facility] [place] [address] Care Team Providers Care Plant Attendant Name Role Phone Magdalena Acosta MD Primary Care Provider [phone] Encounter Details Date Type Department Care Team [...] PM EDT Office Visit Dermatology at [address] [address] Marek Bonilla MD [address] [place] [address] [place] [address] 06/05/2024 11:30 AM EST [place] [address] Magdalena Peralta MD [facility] [place] [address] documented as of this encounter Visit Diagnoses Not on filedocumented in this encounter Care Teams Plant Attendant Relationship Specialty Start Date End Date Magdalena Acosta MD [address] [place] [address] PCP - General Family Medicine 02/05/23 documented as of this encounter
--- OUTSIDE RECORDS SUMMARY | 2024-02-22 14:13 | XMS_ITS | Encounter Summary ---
[place] [address] Care Team Providers Care Machine Edge Bander Name Role Phone Magadlena Acosta MD Primary Care Provider [phone] Reason for Visit * Auth/Cert (Routine) Specialty Diagnoses / Procedures Referred By Contac t Referred To Contact Diagnoses Symptomatic severe aortic stenosis with low ejection fraction NSTEMI, CHF Enrique Chua MD [facility] [address] [facility] Referral ID Status Reason Start Date Expiration Date Visits Re quested Visits Authorized [id number] 1 1 Encounter Details Date Type Department Care Team (Late st Contact Info) Description 05/12/2023 2:50 PM EDT - 05/12/2023 3:50 PM EDT Surgery [place] [address] Antelmo Sharma MD [facility] [place] [address] CARDIAC CATHETERIZATION Social History Tobacco Use Types Packs/Day Years Used Date Smoking Tobacco: Never Smokeless Tobacco: Never Alcohol Use Standard Drinks/Week Comments No 0 (1 standard drink = 0.6 oz pur e alcohol) none [facility] Inpatient Questions Answer Date Recorded Does [...] Patient Age: 67 y.o. Birthdate: 1955 Language: Israeli Race: White Ethnicity: Not nor Admit Date: 05/08/2023 Discharge Date: 05/22/2023 Attending Physician: Alirio Hudson MD Follow-up Recommendations for Providers: Please continue routine management of cardiovascular risk factors including blood pressure, lipids,glucose, etc. Please note any medication changes. Patient to follow up with PCP, Magdalena Acosta MD, or Primary Supervisor Hairspring Fabrication, Maria Luz Mejia MD, in ~ 7-10 days. Patient to follow up with Shoe Dyer, Dr. Antelmo Sharma, in 2 weeks with an EKG, Echo, CBC, and CMP. Patient to follow up with Nephrology, their office to arrange. Rele-Mkdkyy-vf interval: After initial 30 day follow-up appointment , all TAVR patients will follow-up again in one year with an echo. 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 Secondary Diagnoses: Active Hospital Problems Diagnosis S/P TAVR (transcatheter aortic valve replacement) Cardiogenic shock Symptomatic severe aortic stenosis with low ejection fraction Mild coronary artery disease by [facility] 11/09/2022 Heart failure with reduced ejection [...] Tube Placement Right 05/18/2023 Laure Ricks PA [facility] INTERVENTIONL RAD PRG CATH PLMT LEFT HEART CATH & ARTS W/INJ & ANGIO IMG S&I N/A 11/09/2022 CORONARY ANGIOGRAPHY; W [facility],POSSIBLE PCI (WRVU 5.6) performed by Mario Alberto Escobedo MD at [facility] CATH LABS PRG COMBINED RIGHT & LEFT HEART CATH W/INJ L VENTRICULOGRAPHY, IMG S&I N/A 05/12/2023 COMBINED RIGHT & LEFT HEART CATH,INC INJ FOR L VENTRICULOGRAPHY (WRVU 5.99) performed by Antelmo Sharma MD at [facility] CATH LABS PRO AORTOPLAS FOR SUPRAVALV STEN N/A 09/21/2016 @AORTOPLASTY FOR SUPRAVALVULAR STENOSIS (WRVU 29.33) performed by Alirio Hudson MD at [facility] MAIN OR PRO REPLACE AORTIC VALVE (TAVR/FEDERICO)PERC FEMORAL ARTERY APPROACH 05/12/2023 @TRANSCATHETER AORTIC VALVE REPLACEMENT (TAVR), PERCUTANEOUS FEMORAL (WRVU 22.47) performed by Alirio Hudson MD at [facility] CATH LABS PRO REPLACEMENT PROSTHETIC AORTIC VALVE OPEN W CARDIOPULMONARY BYPASS HOMOGRF/STENT N/A 09/21/2016 @REPLACE AORTIC VALVE, OPEN, W\CPB, W\PROSTHETIC VALVE (WRVU 41.32) performed by Alirio Hudson MD at [facility] MAIN OR Prior To Admission [...] Major Procedures/Operations: 05/12/23: Successful right transfemoral TAVR Tkwwe-ph-Kpdrt with a 23 mm Lai 3 THV. Left coronary protection with left main MINNA. Hospital Course: #Severe prosthetic s/p valve in valve TF TAVR #Low coronary heights s/p left main stent for coronary protection #Type 2 NSTEMI, present on arrival, resolved #Acute decompensated HFrEF #Cardiogenic shock #EVANS / Cardiorenal syndrome Purnima Thacker was admitted to [facility] on 05/08/2023 via the Cardiology Service [...] TAVR and she was brought to the cath laboratory technician the following morning where Drs. Alirio Hudson [...] if you have questions. Please call your Shoe Dyer's office if you have any discharge or drainage from your procedural sites. Your Shoe Dyer, Dr. Antelmo Sharma and/or the Advance Agent may be reached at . Antibiotic prophylaxis: You will need to take antibiotics prior to many invasive tests and treatments, such as dental cleaning, which should be done every 6 months. Your primary care physician or your dentist can prescribe this medication. Please refer to the card with the [employer] Guidelines for more information. You have been provided with a copy of this card. Please refer to the [employer] Guidelines for more information. Good [...] friends, go to a movie, go to sabianist, etc. Heavy activities: No hunting, skiing, jogging, [...] should resume a low fat, low cholesterol, [employer] Diet Driving: No restrictions. Shower/Bath: You may shower daily. No baths, soaking, or swimming for the first week. Wound care: Wash the sites daily with soap and rinse well, pat dry. Assess for any signs of infection such as increased redness, pain, warmth or drainage. Please call your cobol programmer's office if you have any discharge or drainage from your procedural sites. If there is a lot of swelling, apply mamta wraps during the day and remove at bedtime. Elevate your legs when you are sitting. Home oxygen therapy: N/A Follow up appointments: Please schedule a follow-up appointment with your PCP, Magdalena Acsota MD, or Primary Supervisor Hairspring Fabrication in ~ 7-10 days. You have a follow-up appointment with your Shoe Dyer, Dr. Antelmo Sharma, in 2 weeks with an EKG, Echo, and labs prior to your appointment. You will need follow-up with Nephrology, their office will arrange. Khzu-Cnutei-bg interval: After initial 30 day follow-up appointment , all TAVR patients will follow-up again in one year with an echo. Cardiac Rehabilitation: Purnima Thacker was seen today regarding participation in the outpatient Phase 2 Cardiac Rehabilitation at [facility]. The patient agrees to a referral to this program. The referral will be sent at discharge and the patient should be contacted by the Program within 1- 2 weeks from discharge. Future Appointments and Orders Future Appointments and Orders Future Appointments Provider Department Dept Phone 07/29/2023 11:00 AM Magdalena Peralta MD Rheumatology at [facility] Arrive at: Neurology Technologist Area [phone] 02/11/2024 2:00 PM Marek Bonilla MD Dermatology at [place] Arrive at: [facility] [address] [phone] Future Orders Complete By Expires Type and Screen Future Surgery, [facility] SAME DAY PROGRAM ONLY) [[id number] Custom] 05/11/2023 Process Instructions: This test is intended ONLY for patients with upcoming surgery for testing prior to the day of surgery obtained through the same day program (4V or SDP). For ALL OTHER PATIENTS, order a Type and Screen (PCC939) This order includes the physician order for an ABO Recheck if requested by the Blood Bank. Scheduling Instructions: Comments: Questions: Date of surgery: CBC (with Diff) [[id number] Custom] 06/05/2023 12/05/2023 Process Instructions: INCLUDES: WBC, RBC, Hgb, Hct, Platelets, RBC Indices and Differential Scheduling Instructions: Comments: Questions: Comprehensive metabolic panel (non-fasting) [LAB17 Custom] 06/05/2023 08/20/2023 Process Instructions: INCLUDES: Calcium, T Protein, Albumin, AST, ALT, Alk Phos, T Bili, BUN, Creat, GFR, Glucose, Lytes. Scheduling Instructions: Comments: Questions: Echocardiogram Transthoracic [37710 CPT(R)] 06/05/2023 12/05/2023 Process Instructions: Scheduling Instructions: Questions: Where will study be performed?: [facility] Clinics Does the patient have Congenital Heart Disease?: Does patient require sedation?: GA rationale: EKG 12 Lead [93928 CPT(R)] 06/05/2023 12/05/2023 Process Instructions: Scheduling Instructions: Questions: Which location will this be performed?: [place] Is a rhythm strip needed?: No [facility] [EQ161 Custom] As directed Process Instructions: Scheduling Instructions: Questions: Device Needed: WALKER (E0143) Patient Height (cm): 154.9 cm (5' 0.98) Patient Weight: 75.4 kg (166 lb 3.2 oz) Diagnosis: Unsteady gait when walking Referral to Cardiac Rehab [JJO353 Custom] As directed Process Instructions: If no progress note charted, please enter Clinical details in comments. Scheduling Instructions: Questions: My question or request is: s/p TAVR. Cardiac rehab at [facility]. Referral to Home Health [REF34 Custom] As directed Process Instructions: If no progress note charted, please enter Clinical details in comments. Scheduling Instructions: Comments: DOCUMENTATION FOR VNA SERVICES PATIENT'S LOCATION: Purnima Thacker [address] [place] [address] [phone] (home) Director Call's Name: Irineo and brother Raymond In discussion with the attending physician, it is certified that this patient is under his/her careand that MD, or an PLATE PREPARER, STEEPING PRESS TENDER, or PA who is working directly with him/her, had a dotj-ry-alph encounter that meets the physician mqqq-pw-gnlt encounter requirements with this patient on 05/22/2023. [...] for managing ADLs. HOME HEALTH CARE AGENCY: [facility]. [address] [facility] [address] PHONE: [phone] FAX: [phone] Start of care: Ideally 24-48 hours after [...] patient's PCP: Magdalena Acosta MD [address] [facility] [phone] All VNA agencies which cover the area of patient's residence have been reviewed, either verbally joao writing, and patient has chosen the home health care agency noted. Questions: Disciplines Requested: Physical Therapy Occupational Therapy Discharge References/Attachments None Arrangements for VNA/home care: As above. (delete if no VNA) Signed: EKATERINA NAVARRETE [facility] Section of Cardiac Surgery Date: 05/22/2023 CC: Magdalena Acosta MD DelaneyMario Alberto maxwell MD [address] [place] [address] [place] [address] documented in this encounter Discharge Instructions * Patient Instructions* Vinod Juárez PA - 05/22/2023 9:32 AM EDT TAVR Discharge Instructions: Call your doctor if: You have a fever of greater than 101 degrees, shaking chills, if you develop redness or drainage from your procedure sites, or if you have questions. Please call your Shoe Dyer's office if you have any discharge or drainage from your procedural sites. Your Shoe Dyer, Dr. Antelmo Sharma and/or the Advance Agent may be reached at . Antibiotic prophylaxis: You will need to take antibiotics prior to many invasive tests and treatments, such as dental cleaning, which should be done every 6 months. Your primary care physician or your dentist can prescribe this medication. Please refer to the card with the [employer] Guidelines for more information. You have been provided with a copy of this card. Please refer to the [employer] Guidelines for more information. Good [...] friends, go to a movie, go to sabianist, etc. Heavy activities: No hunting, skiing, jogging, [...] should resume a low fat, low cholesterol, [employer] Diet Driving: No restrictions. Shower/Bath: You may shower daily. No baths, soaking, or swimming for the first week. Wound care: Wash the sites daily with soap and rinse well, pat dry. Assess for any signs of infection such as increased redness, pain, warmth or drainage. Please call your cobol programmer's office if you have any discharge or drainage from your procedural sites. If there is a lot of swelling, apply mamta wraps during the day and remove at bedtime. Elevate your legs when you are sitting. Home oxygen therapy: N/A Follow up appointments: Please schedule a follow-up appointment with your PCP, Magdalena Acosta MD, or Primary Supervisor Hairspring Fabrication in ~ 7-10 days. You have a follow-up appointment with your Shoe Dyer, Dr. Antelmo Sharma, in 2 weeks with an EKG, Echo, and labs prior to your appointment. You will need follow-up with Nephrology, their office will arrange. Evrp-Dctxyg-uz interval: After initial 30 day follow-up appointment , all TAVR patients will follow-up again in one year with an echo. Cardiac Rehabilitation: Purnima Gallegol was seen today regarding participation in the outpatient Phase 2 Cardiac Rehabilitation at [facility]. The patient agrees to a referral to [...] ins ( tef) Haven Ba, PT Pager: [phone] Physical Therapy Inpatient Rehabilitation Department * Nico [...] 0600 and on the weekends please page [phone]. * Jory Paniagua Magalie - 05/20/2023 3:52 [...] vomiting Last Bowel Movement: 05/20/23 Jory Paniagua Science Specialist * Tong Mike, OT - 05/20/2023 3:16 [...] Tube Placement Right 05/18/2023 Laure Ricks PA [facility] INTERVENTIONL RAD PRG CATH PLMT LEFT HEART CATH & ARTS W/INJ & ANGIO IMG S&I N/A 11/09/2022 CORONARY ANGIOGRAPHY; W C,POSSIBLE PCI (WRVU 5.6) performed by Mario Alberto Escobedo MD at [facility] CATH LABS PRG COMBINED RIGHT & LEFT HEART CATH W/INJ L VENTRICULOGRAPHY, IMG S&I N/A 05/12/2023 COMBINED RIGHT & LEFT HEART CATH,INC INJ FOR L VENTRICULOGRAPHY (WRVU 5.99) performed by Antelmo Sharma MD at [facility] CATH LABS PRO AORTOPLAS FOR SUPRAVALV STEN N/A 09/21/2016 @AORTOPLASTY FOR SUPRAVALVULAR STENOSIS (WRVU 29.33) performed by Alirio Hudson MD at [facility] MAIN OR PRO REPLACE AORTIC VALVE (TAVR/FEDERICO)PERC FEMORAL ARTERY APPROACH 05/12/2023 @TRANSCATHETER AORTIC VALVE REPLACEMENT (TAVR), PERCUTANEOUS FEMORAL (WRVU 22.47) performed by Alirio Hudson MD at [facility] CATH LABS PRO REPLACEMENT PROSTHETIC AORTIC VALVE OPEN W CARDIOPULMONARY BYPASS HOMOGRF/STENT N/A 09/21/2016 @REPLACE AORTIC VALVE, OPEN, W\CPB, W\PROSTHETIC VALVE (WRVU 41.32) performed by Alirio Hudson MD at [facility] MAIN OR Social History: Patient lives alone. Home Setup: Pt lives on one level with tub shower and three steps to enter. DME: none used SYSTEMS SPEC Baseline ADL/Mobility: Independent with ADLs and IADLs. [...] WFL Vision & Perception: corrective lenses time analysis clerk Communication: WFL Range of motion, strength, coordination: [...] Discharge Disposition (OT): swing bed rehabilitation facility, care home facility(vs home with support for IADLs) Other [...] Discharge planning. Total Minutes, Occupational Therapy: 28 (8112-2877) OT Evaluation Code Rationale: Diagnosis & Pertinent Co-Morbidities affecting Plan of Care: see PMHx Occupational Profile & Client History: Brief Expanded Extensive x Assessment of Occupational Performance: 1-3 performance deficits 3-5 performance deficits x 5 + performance deficits Clinical Decision Making: Low Moderate High x Clinical decision making of moderate complexity using standardized patient assessment instrument and measurable assessment of functional outcome. Pager: [phone] TONG MIKE OT 05/20/2023 Occupational Therapy Rehabilitation [...] 0600 and on the weekends please page [phone]. * Rylie Rodriguez MD - 05/19/2023 3:59 [...] and plan. Cynthia Blackburn MD Nephrology Pager: [phone] * Diana Espino - 05/19/2023 1:49 PM EDT Machine Tool Technician Instructor Encounter Note Patient Name: Purnima Thacker : [id number] MR#: [id number] Admit Date: 05/08/2023 9:14 AM Hospital Day [...] Follow-up: As needed. Time in Direct Care: Poitr Espino 05/19/2023 * Henrik Navarrete PTA - [...] returning home alone. Anticipated Discharge Disposition (PT): care home facility, swing bed rehabilitation facility Consult Recommendations: [...] as stated. Total Minutes, Physical Therapy: 38 (1152-9935) Henrik Navarrete SYSTEMS SPEC Pager: [phone] Physical Therapy Inpatient Rehabilitation Department * Nico [...] 0600 and on the weekends please page [phone]. * Laure Ricks PA - 05/19/2023 7:56 [...] Please page with further questions and concerns. aLure Ricks PA-C Interventional Radiology IR Team Pager [phone] * Consuelo Espinoza RN - 05/18/2023 4:13 PM EDT ANGIO NURSING DATABASE Name: Purnima Thacker Date of : 1955 AGE: 67 y.o. Address: [address] [place] [phone] (home) Mobile: No relevant phone numbers on [...] fraction I35.0 Mild coronary artery disease by [facility] 11/09/2022 I25.10 Heart failure with reduced [...] and plan. Cynthia Blackburn MD Nephrology Pager: [phone] * Khushi Magdalena L, LARR[place] - 05/18/2023 10:51 AM EDT Images from the original note were not included. [facility] [place] [address] STRUCTURAL HEART DISEASE CONSULTATION NOTE PRIMARY CARE [...] stenosis. She is now status post TAVR Jcqmu-gf-Idqlb with a 23 mm Lai 3 THV 05/12/[address] Sharma. Preliminary findings: Successful right transfemoral TAVR Fisav-tv-Vabld with a 23 mm Lai 3 THV. [...] perforation. Interval Events: - 05/12 Transferred to [facility] post- TAVR for pressor/inotropic support (Levo, vaso, [...] ejection fraction Mild coronary artery disease by [facility] 11/09/2022 Heart failure with reduced ejection [...] stenosis. She is now status post TAVR Yfdpd-ec-Dfehq with a 23 mm Lai 3 THV [...] Magdalena Puri APRN Structural Heart Team Pager [phone] Team Office Please see addendum by Dr. Sharma for final plan and recommendations Associated attestation - Antelmo Sharma MD - 05/19/2023 10:52 PM EDT I have reviewed Magdalena Puri APRN's above history and I agree with the details as written. The assessment and plan were formulated in discussion with me and I agree with them as documented. Antelmo Sharma MD Pager [phone] * Nico Palacios PA - 05/18/2023 8:13 [...] 0600 and on the weekends please page [phone]. * JudiLoli eid, PT - 05/17/2023 5:27 [...] returning home alone. Anticipated Discharge Disposition (PT): care home facility, swing bed rehabilitation facility Consult Recommendations: [...] plan as stated. Time IN / OUT: 5624-1252 Total Minutes, Physical Therapy: 54 Billing Code: te-sx2, te-f, angely HERNANDEZ PT Pager: [phone] Physical Therapy Inpatient Rehabilitation Department * Cynthia [...] Well controlled. Cynthia Blackburn MD Nephrology Pager: [phone] * Mara Serrano, LARR[place]AN - 05/17/2023 8:26 AM EDT Cardiac Surgery [...] 0600 and on the weekends please page [phone]. * Guerda Del Valle - 05/16/2023 10:44 AM EDT Nutrition Services Note - Low Nutrition Acuity Purnima Thacker is a 67 y.o. female Reason for intervention: hospital day 9 Nutrition Plan: Continue diet order Encourage good PO Anthony and John noted Added special serve: open containers Monitor weight Patient scheduled for a hospital day 9 nutrition evaluation. Manager Icu met with pt at bedside. Pt reports that her appetite and PO has much improved since admission. Denies nausea/vomiting or trouble chewing/swallowing. Manager Icu provided snack list but pt not interested in adding snacks at this time. Her only concern was that she is worried that she will eat too much which will cause too much pressure in her stomach. Manager Icu assured pt and suggested eating smaller but [...] Last Bowel Movement: 05/10/23 Guerda Del Valle Science Specialist * Vinod Juárez PA - 05/16/2023 10:19 [...] Assessment/Plan: 67 y.o. female 4 Days Post-Op Jante TF TAVR for prosthetic . #Severe prosthetic [...] 0600 and on the weekends please page [phone]. * Michael Jeffers MD - 05/16/2023 8:11 AM EDT Images from the original note were not included. Hypertension-Nephrology Inpatient Follow-up Purnima Thacker [id number] 1955 ID: 67 y.o. old female seen [...] IRONSAT 12 (L) 05/16/2023 SFOLATE >20.0 07/03/2022 [id number] 07/03/2022 Lab Results Component Value Date [...] Dr. Ayoub. Please contact me at phone: [phone] or pager: [phone] with any questions. Michael Jeffers MD Nephrology [...] -Nephrology consulted, labs and renal US ordered -[place] removed, ambulated around the unit -bilateral pleural [...] 0600 and on the weekends please page [phone]. * Hortencia Cody MD - 05/15/2023 2:07 [...] not included. Hypertension-Nephrology Inpatient Follow-up Purnima Thacker [id number] 1955 ID: 67 y.o. old female seen [...] HGB 7.8 (L) 05/13/2023 SFOLATE >20.0 07/03/2022 [id number] 07/03/2022 Lab Results Component Value Date [...] Dr. Ayoub. Please contact me at phone: [phone] or pager: [phone] with any questions. Michael Jeffers MD Nephrology [...] outlined inthis evaluation. HAVEN BA, PT Pager: [phone] Physical Therapy Inpatient Rehabilitation Department Time IN / OUT: 6315-3555 Total time: Total Minutes, Physical Therapy: 30 [...] 0600 and on the weekends please page [phone]. * Antelmo Sharma MD - 05/14/2023 7:56 AM EDT Images from the original note were not included. [facility] [place] [address] STRUCTURAL HEART DISEASE CONSULTATION NOTE PRIMARY CARE [...] stenosis. She is now status post TAVR Sptgh-zk-Hcluq with a 23 mm Lai 3 THV 05/12/[address] Sharma. Preliminary findings: Successful right transfemoral TAVR Rordp-ay-Vgodp with a 23 mm Lai 3 THV. [...] ejection fraction Mild coronary artery disease by [facility] 11/09/2022 Heart failure with reduced ejection [...] stenosis. She is now status post TAVR Magmy-bl-Lstzj with a 23 mm Lai 3 THV 05/12/[address] Sharma. Janet TAVR case notable for coronary LAD protective MINNA. Status post TAVR, the patient was transferred to CV for pressor and inotropic support. Pressors weaned overnight 05/12. Cardiac indices by thermodilution remained >3 with continued Milrinone 0.125 mcg/kg/min prior to PAC removal. EKG todayNSR with stable CT/QRS intervals. Hemoglobin slowly down-trending (8.2-> 7.8-> 7.2). [...] Brody Kaplan APRN Structural Heart Team Pager [phone] Team Office Please see addendum by Dr. [...] exposure. Nephrology consultationtoday. Antelmo Sharma MD Pager [phone] * Antelmo Cardenas RN - 05/14/2023 5:18 AM EDT Pt AOx4, complaining of mild/moderate generalized pain (states her Meloxicam is effective at home) currently refusing prn oxycodone. NAEON, hemodynamically stable on Milrinone, Maps >65, ST in [id number]'s down to NSR with frequent multifocal PVC's. [...] from the original note were not included. [facility] [place] [address] STRUCTURAL HEART DISEASE PROGRESS NOTE PRIMARY CARE [...] stenosis. She is now status post TAVR Ruqcj-xq-Uztyo with a 23 mm Lai 3 THV 05/12/[address] Sharma. Preliminary findings: Successful right transfemoral TAVR Qfyrg-pj-Hxanx with a 23 mm Lai 3 THV. [...] ejection fraction Mild coronary artery disease by [facility] 11/09/2022 Heart failure with reduced ejection [...] stenosis. She is now status post TAVR Vifqv-zg-Pavnb with a 23 mm Lai 3 THV 05/12/[address] Sharma. Janet TAVR case notable for coronary LAD protective MINNA. Status post TAVR, the patient was transferred to [facility] for pressor and inotropic support. Pressors weaned overnight. Cardiac indices by thermodilution remain greater than 3 with continued Milrinone 0.125 mcg/kg/min. EKG today NSR with stable CT/QRS intervals. Hemoglobin 7.8 today from 8.5, likely [...] Brody Kaplan APRN Structural Heart Team Pager [phone] Team Office Please see addendum by Dr. [...] DAPT moving forward. Antelmo Sharma MD Pager [phone] * Bonita Miguel PA - 05/13/2023 8:30 AM EDT Cardiac Surgery Progress Note Purnima Thacker is a 67 y.o. 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 PMH of s/p tissue AVR (2017), mixed connective tissue disease HTN, HLD, NICOLAS, diverticulosis, rosacea, essential tremor, and depression. 24h Events: From cath laboratory technician for above procedure Extubated at ~1600 to [...] soft b/l, no evidence of hematoma. Tubes/Lines/Drains: [place], RIJ, A-line, Art, PIV Assessment/Plan: 67 y.o. [...] 0600 and on the weekends please page [phone]. * Onelia Schwartz MD - 05/12/2023 1:44 [...] ejection fraction Mild coronary artery disease by [facility] 11/09/2022 Heart failure with reduced ejection [...] FiO2 weaned to 40%. 1105: ABG 7.34/42/73/22 8426-7616: SBT performed and passed on these settings [...] PCP: Magdalena Acosta MD PCP phone number: [phone] Date of Admission: 05/08/2023 ( Hospital Day [...] 144 PHART -- 7.34* 7.34* -- -- PGJ3JAE -- 30* 30* -- -- PO2ART -- 72* 81* -- -- RJZ3JQH -- 16.0* 15.7* -- -- LACTATEVEN 2.4* 2.7* 2.7* 4.8* 2.9* VBG (Venous Blood Gas) Recent Labs 05/12/23 0700 05/12/23 0318 05/12/2310505/11/23193905/11/231446 LACTATEVEN 2.4* 2.7* 2.7* 4.8* 2.9* Mixed Venous Sat Recent Labs 05/12/23 0508 05/12/23 0321 05/12/23 0114 05/12/23 0030 [id number] 30.7 32.7 37.3 25.1 Objective: Vitals Last [...] who have questions please contact the health special needs child caregiver that requested your imaging first. Electronically signed by: ALIX RUVALCABA MD, [facility] ([phone]), at 05/10/2023 1:[address] Cardiac for [...] who have questions please contact the health special needs child caregiver that requested your imaging first. Electronically signed by: Cullen Narayanan MD, [facility] ([phone]), at 05/11/2023 4:[address] Angiogram Abdomen [...] who have questions please contact the health special needs child caregiver that requested your imaging first. Electronically signed by: Eileen Gomes MD, [facility] ([phone]), at 05/11/2023 2:42 PM XR Chest One [...] who have questions please contact the health special needs child caregiver that requested your imaging first. Electronically signed by: Will Rowe MD, [facility] ([phone]), at 05/11/2023 11:57 PM XR Chest One [...] who have questions please contact the health special needs child caregiver that requested your imaging first. Electronically signed by: Will Rowe MD, [facility] ([phone]), at 05/12/2023 3:16 AM Assessment & Plan: [...] and inotrope. She is planned for a ajyfs-bk-oqovy TAVR this morning, which should hopefully improve [...] MD, FACP, FACC Section of Cardiovascular Medicine [facility] Data Processing Managermanager performance improvement [facility] [employer] [facility] [employer] [facility] * Noreen Deutsch RN - 05/12/2023 5:21 [...] ejection fraction Mild coronary artery disease by [facility] 11/09/2022 Heart failure with reduced ejection [...] 05/11/2023 4:11 PM EDT Reported off to PIT FURNACE MELTER and pt transferred over in the bed for higher level of care. * Antelmo Sharma MD - 05/11/2023 9:45 AM EDT Images from the original note were not included. [facility] [place] [address] STRUCTURAL HEART DISEASE CONSULTATION NOTE PRIMARY CARE [...] who had been referred for possible TAVR sndds-dl-pjnrx evaluation. Her primary symptoms are of dyspnea [...] Ms. Thacker is originally from [facility]. 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 She states that, [...] ejection fraction Mild coronary artery disease by [facility] 11/09/2022 Heart failure with reduced ejection [...] hour(s)) Lactate, whole blood, send to lab ([facility] Result Value Ref Range Lactate WB 3.1 (H) 0.5 - 2.2 mmol/L Heparin (unfractionated) Level Result Value Ref Range Heparin UFH Level 0.46 IU/mL Lactate, whole blood, send to lab ([facility] Result Value Ref Range Lactate WB 1.8 [...] leads Confirmed by MD Harshil, Enrique Bell ([id number]) on 05/10/2023 8:11:46 AM Cardiac Cath 11/09/2022 [...] to decompensating HFrEF, she was transferred to [facility] this afternoon for further management. TAVR CT imaging support for adequate ileofemoral access. Given her acute deterioration today, will planfor RTF TAVR on 05/12/2023. Brody Kaplan APRN Structural Heart Disease Pager [phone] Please see addendum by Dr. Sharma for [...] signed and dated. Antelmo Sharma MD Pager [phone] * Harini Lance MD - 05/11/2023 6:06 AM EDT Images from the original note were not included. Cardiology Progress Note Patient info: Name: Purnima Thacker : 1955 PCP: Magdalena Acosta MD PCP phone number: [phone] Date of Admission: 05/08/2023 ( Hospital Day [...] who have questions please contact the health special needs child caregiver that requested your imaging first. Electronically signed by: ALIX RUVALCABA MD, [facility] ([phone]), at 05/10/2023 1:25 PM TTE: 05/08 -Left [...] Lance MD Internal Medicine, PGY-1 Cardiology M1-S2, #[id number] 05/11/2023, 6:06 AM Associated attestation - Juan Luis Gonzalez MD - 05/11/2023 10:20 PM EDT Cardiology Attending Addendum Active Hospital Problems Diagnosis Symptomatic severe aortic stenosis with low ejection fraction Heart failure with reduced ejection fraction due to heart valve disease 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, 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) Mild coronary artery disease by [facility] 11/09/2022 Hyperlipidemia, unspecified NICOALS (obstructive sleep apnea) Resolved Hospital Problems No [...] PCP: Magdalena Acosta MD PCP phone number: [phone] Date of Admission: 05/08/2023 ( Hospital Day [...] 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) Mild coronary artery disease by [facility] 11/09/2022 Hyperlipidemia, unspecified NICOLAS (obstructive sleep [...] PCP: Magdalena Acosta MD PCP phone number: [phone] Date of Admission: 05/08/2023 ( Hospital Day [...] Gas) No results found for: PHART, PO2ART, LEB3GLU, YXL6QUT Microbiology: Microbiology Results (Last 30 days) No [...] PPx: Diet: Daily Healthy Menu Choices/Cardiac diet ([facility]Diet) Lines: Peripheral IV Line - Single Lumen [...] 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) Mild coronary artery disease by [facility] 11/09/2022 Hyperlipidemia, unspecified NICOLAS (obstructive sleep [...] fraction I35.0 Mild coronary artery disease by [facility] 11/09/2022 I25.10 Heart failure with reduced ejection fraction due to heart valve disease I50.20, I38 Cardiogenic shock R57.0 S/P TAVR (transcatheter aortic valve replacement) Z95.2 Past Medical History: Diagnosis Date Anemia Past Surgical History: Procedure Laterality Date PRG CATH PLMT LEFT HEART CATH & ARTS W/INJ & ANGIO IMG S&I N/A 11/09/2022 CORONARY ANGIOGRAPHY; W [facility],POSSIBLE PCI (WRVU 5.6) performed by Mario Alberto Escobedo MD at [facility] CATH LABS PRO AORTOPLAS FOR SUPRAVALV STEN N/A 09/21/2016 @AORTOPLASTY FOR SUPRAVALVULAR STENOSIS (WRVU 29.33) performed by Alirio Hudson MD at [facility] MAIN OR PRO REPLACEMENT PROSTHETIC AORTIC VALVE OPEN W CARDIOPULMONARY BYPASS HOMOGRF/STENT N/A 09/21/2016 @REPLACE AORTIC VALVE, OPEN, W\CPB, W\PROSTHETIC VALVE (WRVU 41.32) performed by Alirio Hudson MD at [facility] MAIN OR Social History and Habits: [...] OneTouch Verio test strips Strip USE DAILY [employer] Lancet 33 gauge Misc USE DAILY [...] fraction I35.0 Mild coronary artery disease by [facility] 11/09/2022 I25.10 Heart failure with reduced ejection fraction due to heart valve disease I50.20, I38 Cardiogenic shock R57.0 S/P TAVR (transcatheter aortic valve replacement) Z95.2 Past Medical History: Diagnosis Date Anemia Past Surgical History: Procedure Laterality Date PRG CATH PLMN LEFT HEART CATH & ARTS W/INJ & ANGIO IMG S&I N/A 11/09/2022 CORONARY ANGIOGRAPHY; W [facility],POSSIBLE PCI (WRVU 5.6) performed by Mario Alberto Escobedo MD at [facility] CATH LABS PRO AORTOPLAS FOR SUPRAVALV STEN N/A 09/21/2016 @AORTOPLASTY FOR SUPRAVALVULAR STENOSIS (WRVU 29.33) performed by Alirio Hudson MD at [facility] MAIN OR PRO REPLACEMENT PROSTHETIC AORTIC VALVE OPEN W CARDIOPULMONARY BYPASS HOMOGRF/STENT N/A 09/21/2016 @REPLACE AORTIC VALVE, OPEN, W\CPB, W\PROSTHETIC VALVE (WRVU 41.32) performed by Alirio Hudson MD at [facility] MAIN OR Social History and Habits: [...] days, which prompted her to present to [employer] [employer] [employer]. She also endorses some intermittent retrosternal chest pain with exertion.She endorses some dizziness with exertion, but has not gotten faint or passed out. At [facility] she was noted to be afebrile, blood pressure 105/64, HR 120s, satting 95% on 2L NC. Labs from [facility] are below, of note she had elevated [...] 89/59, which prompted the transfer to us. [facility] labs: CBC - Hgb 10.5 CMP - Cr 1.1 BNP 89536 HsTrop 1358 Lactate 1.6 D-dimer 1183 Interval History Patient was admitted to [facility] due to concern on low BP iso [...] Klaudia Reid MD Internal Medicine PGY-1 Pager [phone], M1-S1 Service Associated attestation - Juan Luis Gonzalez MD - 05/08/2023 10:00 PM EDT Cardiology Attending Addendum Active Hospital Problems Diagnosis Symptomatic severe aortic stenosis with low ejection fraction Heart failure with reduced ejection fraction due to heart valve disease Mild coronary artery disease by [facility] 11/09/2022 Hyperlipidemia, unspecified History of aortic valve replacement Resolved Hospital Problems No resolved problems to display. I have interviewed and examined the patient, reviewed the available data, and have discussed my findings, assessment and plan with the patient and the team on admission to S2 service (from [facility] service) today. I agree with Dr. Reid's [...] PCP: Magdalena Acosta MD PCP phone number: [phone] Date of Admission: 05/08/2023 ( Hospital Day 0 days ) Attending:Enrique Chua MD ID: Purnima Thacker is a 67 y.o. female w/ PMH of s/p bioprosthetic AVR in 2016 with recent concern for severe restenosis, HTN, HLD, mixed connective tissue disease, who presents in transfer from [facility] with worsening BONILLA and weight gain concerning [...] four days, which promptedher to present to [employer] [employer]. She also endorses some intermittent retrosternal chest pain with exertion. She endorses some dizziness with exertion, but has not gotten faint or passed out. At [facility] she was noted to be afebrile, blood pressure 105/64, HR 120s, satting 95% on 2L NC. Labs from [facility] are below, of note she had elevated [...] 89/59, which prompted the transfer to us. [facility] labs: CBC - Hgb 10.5 CMP - Cr 1.1 BNP 56491 HsTrop 1358 Lactate 1.6 D-dimer 1183 Vasoactive [...] tissue disease, who presents [facility] BONILLA and weight gain concerning for [...] #Routine Diet: Daily Healthy Menu Choices/Cardiac diet ([facility]-[place]iet) DVT Prophylaxis: heparin gtt GI Prophylaxis: none [...] aspirin, statin. -Continue heparin for now pending Paual trend. -If remains HD stable, can transfer [...] to the planned procedure. Hand Hygiene: The laboratory mechanic helper did perform hand hygiene prior to arterial [...] Successful arterial line placement. Crispin Timmons MD Advance Agent Associated attestation - Onelia Schwartz MD [...] (flow was non-pulsatile) and appearance of blood. [place]-Marily catheter was placed and locked at 55 cm. Initial CVP of 10 with PA pressures in the 40s/20s. Initial TD with CI of 1.03. Crispin Timmons MD 1:13 AM 05/12/23 Associated attestation - Oneila Schwartz MD - 05/12/2023 1:25 AM EDT [...] follow-up [facility], [place] [address] [place] [address] Cardiac Rehab, [address] [place] [address] [facility], [place] [address] [place] [address] Transportation: family or friend will provide *Brother [...] Type: *No Product type* / Secondary Insurance: [employer] [place] Prescription Coverage: Yes This plan was formulated with input from patient, family (please identify family/friend involved ifapplicable) and team. All are in agreement with plan. Aliza Martino MSN-Ed, RN ACM staff nurse anesthetist Office of Care Management Pager #[phone] * Plan of Care - Favian Mckeon [...] Chaudhary RN - 05/21/2023 4:46 PM EDTSumcaydeny: [facility] referral OFFICE OF CARE MANAGEMENT [...] Type: *No Product type* / Secondary Insurance: [employer] [facility] [place] Last Physical Therapy Recommendation: (Home with assist from Brother; Friend arriving Tues) with walker, front wheeled Last Occupational Therapy Recommendation: swing bed rehabilitation facility, care home facility (vs home with support for IADLs) [...] geographic area. They have requested referrals to: [facility] [address] [place] [address] [facility] @ [facility] [place], [place] Note routed to a Broomcorn Thresher who will communicate referrals to facilities and provide any required information. Transportation: family or friend will provide *Brother Raymond on Tuesday 05/22 at 1000 Barriers to discharge: Does not have home 22/02 assist available until tomorrow Tuesday 05/22 Plan going forward: Discharge home into the 22/02 home care of brother Raymond with [facility] and [facility] PT/OT services on Tuesday 05/22 [...] Attending: All Staff: Staff Role Juanita Almaguer Telemarketing Representative Laure Ricks PA Physician Supervisor Benzene [employer]ining Magdalena Rodriguez RN Radiology Nurse Consuelo Espinoza [...] Type: *No Product type* / Secondary Insurance: [facility] [place] Last Physical Therapy Recommendation: care home facility, swing bed rehabilitation facility with to be determined Last Occupational Therapy Recommendation: with Plan for discharge is: Shelter Facility / Swing Outpatient Agency/Support Group Needs: None Agency Referrals: Based on discussions with the multi-disciplinary healthcare team, the patient would benefit from SNF / Swing level of care at discharge. I have met with the patient to: discuss discharge planning needs. provide the [facility], Office of Care Management letter from the Occupational Therapy Specialist pertaining to rehab referrals. provide a letter describing our affiliations within the [facility] and educate about their right to choose where referrals are sent. provide the [facility] Star Quality Rating handout. review the different levels of rehab including SNF, swing, and acute. provide a list of facilities within their preferred geographic area. request that they provide at least three choices for referral. They have requested referrals to: [facility] [address] [place] [address] [facility] ([facility]) [address] [place] [address] (Accepts pts only after exhausting all other local SNF options) [facility] (Swing) ([facility]) [address] [place] [address] PHONE: [phone] FAX: [phone] [facility] (Swing) ([facility]) [address] [place] [address] PHONE: [phone] FAX: [phone] Note routed to a Broomcorn Thresher who will communicate referrals to facilities and [...] Crenshaw RN - 05/17/2023 10:25 AM EDT [facility] CARDIAC REHABILITATION Purnimakary Thacker was seen today regarding participation in the outpatient Phase 2 Cardiac Rehabilitation at [facility]. The patient agrees to a referral to [...] from the original note were not included. [facility] NEPHROLOGY/HYPERTENSION CONSULT NOTE PATIENT: Purnima Thacker [...] in her course. She ultimately underwent a ecmyv-bh-gjemg procedure on and tolerated it well (see [...] 1423 05/12/23 1105 PHART 7.39 7.37 7.34* OSQ8HEC 33* 36 42 PO2ART 101 102 73* MYS9RHD 19.5* 20.4 22.1 LACTATEVEN 1.5 1.8 2.8* UPV2OAY 40 40 40 PFRATIOART2 252 255 182 VBG (Venous Blood Gas) Recent Labs 05/12/23 1557 05/12/23 1423 05/12/23 1105 LACTATEVEN 1.5 1.8 2.8* Mixed Venous Sat Recent Labs 05/12/23 1425 05/12/23 0508 05/12/23 0321 O1QKDS7 59.9 30.7 32.7 LFT's: Recent Labs 05/14/23 0110 05/13/23 0115 05/12/23 0600 BILITOT 0.4 0.5 0.9 BILIDIR -- 0.3 -- ALBUMIN 3.6 3.0* 3.5 ALKPHOS 86 85 100 ALT 437* 903* 1,174* AST 319* 792* 1,435* No results found for: UPROTCREAT No results found for: TPROTEINPEP, ALBELECT No results found for: MICROALBUR, HRAI44TPB No results found for: HA1C Lab Results Component Value Date CALCIUM 8.5 05/14/2023 PHOS 4.7 (H) 05/08/2023 No results found for: 25OHVITD MICROBIOLOGY: ProcedureComponentValueUnitsDate/TimeUrine culture [[id number]]Collected: 05/11/231921Lab Status: Final resultSpecimen: Clean Catch UrineUpdated: [...] consulted for assessment if this patient needs CUSTOMER SERVICE ADMINISTRATOR. Atthis time, we can likely hold off on CUSTOMER SERVICE ADMINISTRATOR. Her volume status appears sufficient and her metabolic kanwal angements with mild acidosis is not too profound. Patient does not have significant uremic symptoms. We can hold off for today, but the patient is a high risk candidate for needing CUSTOMER SERVICE ADMINISTRATOR in future daysespecially if her Cr curve trends the direction it is for the next several days. S/p Moiqw-st-Oeglh TF TAVR: Management per cardiology. On milrinone gtt. PLAN: - Please obtain following diagnostics: renal US, urinalysis, urine prot/Cr ratio, urine albumin/Cr ratio, CK, uric acid, serum osmol, daily VBGs - No acute indications for CUSTOMER SERVICE ADMINISTRATOR/dialysis. We will keep close eye on Cr trend, volume status, and metabolics to ensure patient still does not need CUSTOMER SERVICE ADMINISTRATOR as she ensues intrinsic renal recovery - [...] M.H.Katherine., M.A. PGY-V Nephrology-Hypertension Fellow Page # [phone] [facility] [address] 2nd floor, Neurology Technologist [address] [place] [address] * Care Management - Mario Alberto Olmos [...] *No Product type* / Secondary Insurance: [facility] Plan for discharge is: Home [...] for a TAVR at 730. Returned to [facility] at 0945. Was intubated in the cath laboratory technician due to agitation. Maintained bedrest for 5 [...] Operative Note Patient Name: Purnima Thacker : [id number] MR#: [id number] Case Date: 05/12/2023 Surgeon: Surgeon(s) and Role: Panel 1: * Antelmo Sharma MD - Primary * Rebekah Tejeda MD - Fellow - Assisting Panel 2: * Alirio Hudson MD - Primary Panel 3: * Enrique Cuha MD - Primary Preoperative diagnosis: /TAVR Postoperative [...] procedure Note: Patient Name: Purnima Thacker : [id number] MR#: [id number] Case Date: 05/12/2023 Operators Surgeon: Surgeon(s) and [...] main with 4.0 x 30 mm Resolute Palouse Drug Eluting Stent Perclose x1 + Angio-seal 8 Fr x1, RFA Manual pressure, LFA Manual pressure, LFV Endotracheal intubation (performed by cardiac anesthesia) Preliminary findings: Successful right transfemoral TAVR Jkouz-dx-Anyrf with a 23 mm Lai 3 THV. [...] MD, M.Sc. Structural Heart Disease Fellow Pager :[phone] Antelmo Sharma MD Pager [phone] * Op Note - Alirio Husdon MD - 05/12/2023 7:37 AM EDT Preop Diagnosis: Severe aortic stenosis, symptomatic. Postop Diagnosis: Same. Procedure: Transfemoral TAVR procedure with 23mm valve. Surgeon: Alirio Hudson M.D. Supervisor [employer]: Danny CULP Procedure: The patient was taken to the cath laboratory technician. The patient had monitored anesthesia care. 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 Smoking - never ETOH - denies Illicit [...] from the original note were not included. [facility] [place] [address] [place] [address] STRUCTURAL HEART DISEASE CONSULTATION NOTE PRIMARY CARE [...] who had been referred for possible TAVR bnczc-ua-wrvmx evaluation. Her primary symptoms are of dyspnea [...] Ms. Thacker is originally from [facility]. 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 PROBLEM LIST: Patient Active Problem List Diagnosis Symptomatic severe aortic stenosis with low ejection fraction Mild coronary artery disease by [facility] 11/09/2022 Heart failure with reduced ejection [...] hour(s)) Lactate, whole blood, send to lab ([facility] Result Value Ref Range Lactate WB 1.8 [...] leads Confirmed by MD Harshil, Enrique Bell ([id number]) on 05/10/2023 8:11:46 AM Assessment and Plan: [...] Antelmo Sharma MD Structural Heart Disease Pager [phone] * Plan of Care - Sarahi Nice RN - 05/10/2023 3:55 AM MITZITSshalini: VALDO Note and Care Plan Sarahi Nice RN assumed care of pt at time of their arrival to room 362 from [facility]. Pt voices shortness of breath at time [...] listening utilized Taken 05/08/20231999 by Alivia Kauffman, machinist supervisor outside/Support System Care: self-care encouraged support provided Problem: [...] Manage Obstructive Sleep Apnea Flowsheets (Taken 05/09/2023 0812) NPPV/CPAP Maintenance: home PAP equipment/settings used * Initial Assessments - Alie Bradshaw RN - 05/09/2023 3:42 PM EDT Office of Care Management Initial Assessment Alie Bradshaw RN reviewed record and discussed patient with Care Team. Source of Information: Team, bedside nurse, medical record, and Patient Introduced self/reviewed role; services accepted. Admitted From: Transfer from another hospital Location: admitted from [facility] Reason for Hospitalization: Critical aortic stenosis, causing symptoms Past medical History: Past Medical History: Diagnosis Date Anemia Hospitalizations Within the Past 30 Days: no previous admission in last 30 days Current Decision-Making Capacity: Self If AD's have not been completed the following surrogate would be surrogate decision maker per [place] decision making law. (Only good for 180 days) Any patient receiving care in [place] must abide by [place] law. The hierarchy for surrogate decision making [...] (i) The agent with financial power of managing attorney or a conservator appointed in accordance [...] DME: none Home Address confirmed as: [address] [address] Social & Family Supports: All names listed [...] *No Product type* / Secondary Insurance: [facility] ONLY if patient has Medicare A&B - Does this patient have secondary insurance?: Yes ; Prescription Coverage: Yes Preferred Pharmacy: updated to [facility] [place] Status: Patient is a : No Primary Care Provider confirmed: Magdalena Acosta MD [phone] Patient/Caregiver Goals of Treatment: Potential Needs for [...] transition of care planning. Alie Bradshaw RN, Pager-[phone] * Plan of Care - Emily Lucero RN - 05/08/2023 2:54 PM EDT OUTCOME EVALUATION NOTE: OUTCOME SUMMARY: Pt arrived from [facility]. A&O, no c/o pain or SOB. Heparin [...] PM EDT Office Visit Dermatology at [address] [place] [address] Marek Bonilla MD [address] [facility] [address] [address] 06/05/2024 11:30 AM EST Office [place] [address] Magdalena Peralta MD [facility] [place] [address] Scheduled Referrals Name Type Priority Associated Diagnoses [...] Heart Cath W/Inj L Ventriculography, Img S&I (65344) 05/12/2023 7:37 AM EDT Aortic valve stenosis, [...] DOPP (07/08/2023 12:15 PM EST) EF 20 [facility] Anatomical Region Laterality Modality Cardiac Other 07/08/2023 10:3 1 AM EST Narrative 07/08/2023 12:26 PM EST 1 [place] [address] ? Echocardiogram Report Name: PURNIMA THACKER ?Study Date: 07/08/2023 10:31 AMBP: 118/60 mmHg ? Patient Location: 4A : 1955 ? Height: 155 cm ? Account: [id number] Age: 67 yrs ? Weight: 74 kg Gender: Female ?BSA: 1.7 m2 Ordering Physician: ALIRIO HUDSON Referring Physician: VINOD JUÁREZ Performed By: Felicia Norris RDCS Reason For Study: S/P TAVR Exam Location: [facility]. Interpretation Summary Left ventricular systolic [...] no significant change (post-procedure). Procedure Limited - 27917. Doppler - 50634. Color Doppler - 88721. Satisfactory quality. This study is limited because [...] Note Lee Kincaid MD - 07/08/2023 1 [place] [address] Echocardiogram Report Name: PURNIMA THACKER Study Date: 0:31 AMBP: 118/60 mmHg Patient Location: : 1955 Height: 155 cm Account: [id number] Age: 67 yrs Weight: 74 kg Gender: Female BSA: 1.7 m2 Ordering Physician: ALIRIO HUDSON Referring Physician: VINOD JUÁREZ Performed By: Felicia Norris RDCS Reason For Study: S/P TAVR Exam Location: [facility]. Interpretation Summary Left ventricular systolic [...] is nosignificant change (post-procedure). Procedure Limited - 50991. Doppler - 19700. Color Doppler - 93285. Satisfactoryquality. This study is limited because of [...] Glucose Lvl 93 65 - 199 mg/dL [facility] Comment:Diabetes: >=200 mg/d L plus symptoms BUN 19(H) 8 - 18 mg/dL [facility] Creatinine 0.81 0.70 - 1.20 mg/dL [facility] Sodium 142 135 - 145 mmol/L [facility] Potassium 3.8 3.5 - 5.0 mmol/L [facility] Comment: Please note: ??Patients with WBC >100,000 may have falsely elevated Potassium levels. ??For accurate Potassium quantification in these patients send serum separator tube (gold top) for subsequent determinations. ??Contact the Clinical Chemistry Laboratory if there are any questions. Chloride 104 98 - 107 mmol/L [facility] CO2 26 22 - 31 mmol/L [facility] Anion Gap 12 5 - 15 mmol/L [facility] Calcium 10.2 8.5 - 10.5 mg/dL [facility] Total Protein 7.4 6.1 - 8.0 g/dL [facility] Albumin 4.1 3.2 - 5.2 g/dL [facility] AST 24 0 - 30 unit/L [facility] ALT 12 0 - 30 unit/L [facility] Alk Phos 93 35 - 105 unit/L [facility] Total Bilirubin 0.3 0.2 - 1.3 mg/dL [facility] Estimated GFR 80 >=60 mL/min/1. 73 m?? [facility] Comment: This patient's estimated GFR [...] Lab Alirio Hudson MD CHEMISTRY ORDERABLE S [facility] [place] [address] * (ABNORMAL) Basic Metabolic Panel (non-fasting) (05/22/2023 3:57 AM EDT) Glucose Lvl 88 65 - 199 mg/dL [facility] Comment:Diabetes: >=200 mg/d L plus symptoms BUN 21(H) 8 - 18 mg/dL [facility] Creatinine 0.69(L) 0.70 - 1.20 mg/dL [facility] Sodium 136 135 - 145 mmol/L [facility] Potassium 3.6 3.5 - 5.0 mmol/L [facility] Comment: Please note: ??Patients with WBC >100,000 may have falsely elevated Potassium levels. ??For accurate Potassium quantification in these patients send serum separator tube (gold top) for subsequent determinations. ??Contact the Clinical Chemistry Laboratory if there are any questions. Chloride 102 98 - 107 mmol/L [facility] CO2 23 22 - 31 mmol/L [facility] Anion Gap 11 5 - 15 mmol/L [facility] Calcium 8.6 8.5 - 10.5 mg/dL [facility] Estimated GFR 95 >=60 mL/min/1. 73 m?? [facility] Comment: This patient's estimated GFR [...] Agency Comment Spec In Lab Mara Serrano [place] CHEMISTRY ORDERABL ES [facility] [place] [address] * (ABNORMAL) Basic Metabolic Panel (non-fasting) (05/21/2023 5:06 AM EDT) Glucose Lvl 87 65 - 199 mg/dL [facility] Comment:Diabetes: >=200 mg/d L plus symptoms BUN 25(H) 8 - 18 mg/dL [facility] Creatinine 0.84 0.70 - 1.20 mg/dL [facility] Sodium 136 135 - 145 mmol/L [facility] Potassium 3.6 3.5 - 5.0 mmol/L [facility] Comment: Please note: ??Patients with WBC >100,000 may have falsely elevated Potassium levels. ??For accurate Potassium quantification in these patients send serum separator tube (gold top) for subsequent determinations. ??Contact the Clinical Chemistry Laboratory if there are any questions. Chloride 102 98 - 107 mmol/L [facility] CO2 26 22 - 31 mmol/L [facility] Anion Gap 8 5 - 15 mmol/L [facility] Calcium 8.9 8.5 - 10.5 mg/dL [facility] Estimated GFR 76 >=60 mL/min/1. 73 m?? [facility] Comment: This patient's estimated GFR [...] Agency Comment Spec In Lab Mara Serrano [place] CHEMISTRY ORDERABL ES [facility] [place] [address] * Lavender Tube HOLD (05/20/2023 2:52 AM EDT) Lavender Hold Sample in lab. [facility] Blood Venous Draw / Unknown 05/20/2023 2:52 AM EDT 05/20/2023 3:04 AM EDT Mara Serrano [place] HEMATOLOGY ORDERAB LES [facility] [place] [address] * (ABNORMAL) Basic Metabolic Panel (non-fasting) (05/20/2023 2:52 AM EDT) [facility] Glucose Lvl 152 65 - 199 mg/dL [facility] Comment:Diabetes: >=200 mg/d L plus symptoms BUN 33(H) 8 - 18 mg/dL [facility] Creatinine 0.82 0.70 - 1.20 mg/dL [facility] Sodium 137 135 - 145 mmol/L [facility] Potassium 3.7 3.5 - 5.0 mmol/L [facility] Comment: Please note: ??Patients with WBC >100,000 may have falsely elevated Potassium levels. ??For accurate Potassium quantification in these patients send serum separator tube (gold top) for subsequent determinations. ??Contact the Clinical Chemistry Laboratory if there are any questions. Chloride 99 98 - 107 mmol/L [facility] CO2 22 22 - 31 mmol/L [facility] Anion Gap 16(H) 5 - 15 mmol/L [facility] Calcium 9.0 8.5 - 10.5 mg/dL [facility] Estimated GFR 78 >=60 mL/min/1. 73 m?? [facility] Comment: This patient's estimated GFR [...] Agency Comment Spec In Lab Mara Thomasfield [place] CHEMISTRY ORDERABL ES Performing Organization Address [facility] de Phone Number [facility] [place] [address] * (ABNORMAL) Potassium (05/20/2023 2:52 AM EDT) [facility] Potassium 3.4(L) 3.5 - 5.0 mmol/L [facility] Agency Comment Spec In Lab Mara [place]field [place] CHEMISTRY ORDERABL ES Performing Organization Address [facility] Co de Phone Number [facility] [place] [address] * XR Chest PA & Lateral (Generic) [...] who have questions please contact the health special needs child caregiver that requested your imaging first. ? Electronically signed by: Chyna Johnson MD, [facility] ??([phone]), at 05/19/2023 2:19 PM Narrative 05/19/2023 2:19 [...] patients who have questions please contactthe health special needs child caregiver that requested your imaging first. Electronically signed by: Chyna Johnson MD, [facility]([phone]), at 05/19/2023 2:19 PM Alirio Hudson MD IMG DX ORDERABLES * (ABNORMAL) Basic Metabolic Panel (non-fasting) (05/19/2023 5:49 AM EDT) Glucose Lvl 93 65 - 199 mg/dL [facility] Comment:Diabetes: >=200 mg/d L plus symptoms BUN 45(H) 8 - 18 mg/dL [facility] Creatinine 1.02 0.70 - 1.20 mg/dL [facility] Sodium 138 135 - 145 mmol/L [facility] Potassium 3.9 3.5 - 5.0 mmol/L [facility] Comment: Please note: ??Patients with WBC >100,000 may have falsely elevated Potassium levels. ??For accurate Potassium quantification in these patients send serum separator tube (gold top) for subsequent determinations. ??Contact the Clinical Chemistry Laboratory if there are any questions. Chloride 102 98 - 107 mmol/L [facility] CO2 26 22 - 31 mmol/L [facility] Anion Gap 10 5 - 15 mmol/L [facility] Calcium 9.7 8.5 - 10.5 mg/dL [facility] Estimated GFR 60 >=60 mL/min/1. 73 m?? [facility] Comment: This patient's estimated GFR [...] Agency Comment Spec In Lab Mara Serrano [place] CHEMISTRY ORDERABL ES [facility] [place] [address] * IR Chest Tube Placement Right (05/18/2023 [...] Glucose Lvl 95 65 - 199 mg/dL [facility] Comment:Diabetes: >=200 mg/d L plus symptoms BUN 71(H) 8 - 18 mg/dL [facility] Comment:result rechecked-JSJ Creatinine 1.64(H) 0.70 - 1.20 mg/dL [facility] Comment:result rechecked-JSJ Sodium 137 135 - 145 mmol/L [facility] Potassium 3.7 3.5 - 5.0 mmol/L [facility] Comment: Please note: ??Patients with WBC >100,000 may have falsely elevated Potassium levels. ??For accurate Potassium quantification in these patients send serum separator tube (gold top) for subsequent determinations. ??Contact the Clinical Chemistry Laboratory if there are any questions. Chloride 100 98 - 107 mmol/L [facility] CO2 24 22 - 31 mmol/L [facility] Anion Gap 13 5 - 15 mmol/L [facility] Calcium 9.7 8.5 - 10.5 mg/dL [facility] Estimated GFR 34(L) >=60 mL/min/1. 73 m?? [facility] Comment: This patient's estimated GFR [...] Agency Comment Spec In Lab Mara Serrano [place] CHEMISTRY ORDERABL ES [facility] [place] [address] * XR Chest PA & Lateral (Generic) [...] who have questions please contact the health special needs child caregiver that requested your imaging first. ? Narrative [...] patients who have questions please contactthe health special needs child caregiver that requested your imaging first. Electronically signed by: Ghassan Reyes MD, [facility]([phone]), at 05/17/2023 11:46 AM Alirio Hudson MD IMG DX ORDERABLES * (ABNORMAL) Comprehensive metabolic panel (non-fasting) (05/17/2023 4:35 AM EDT) Glucose Lvl 89 65 - 199 mg/dL [facility] Comment:Diabetes: >=200 mg/d L plus symptoms BUN 97(H) 8 - 18 mg/dL [facility] Creatinine 2.97(H) 0.70 - 1.20 mg/dL [facility] Comment:result rechecked-[facility] Sodium 135 135 - 145 mmol/L [facility] Potassium 4.1 3.5 - 5.0 mmol/L [facility] Comment: Please note: ??Patients with WBC >100,000 may have falsely elevated Potassium levels. ??For accurate Potassium quantification in these patients send serum separator tube (gold top) for subsequent determinations. ??Contact the Clinical Chemistry Laboratory if there are any questions. Chloride 97(L) 98 - 107 mmol/L [facility] CO2 22 22 - 31 mmol/L [facility] Anion Gap 16(H) 5 - 15 mmol/L [facility] Calcium 9.6 8.5 - 10.5 mg/dL [facility] Total Protein 6.5 6.1 - 8.0 g/dL [facility] Albumin 3.7 3.2 - 5.2 g/dL [facility] AST 58(H) 0 - 30 unit/L [facility] ALT 66(H) 0 - 30 unit/L [facility] Alk Phos 86 35 - 105 unit/L [facility] Total Bilirubin 0.6 0.2 - 1.3 mg/dL [facility] Estimated GFR 17(L) >=60 mL/min/1. 73 m?? [facility] Comment: This patient's estimated GFR [...] Lab Alirio Hudson MD CHEMISTRY ORDERABLE S [facility] [place] [address] * Potassium (05/16/2023 11:15 PM EDT) Potassium 3.7 3.5 - 5.0 mmol/L [facility] [...] MD CHEMISTRY ORDERABLE S Performing Organization Address [facility] Co de Phone Number [facility] [place] [address] * Magnesium (05/16/2023 5:22 PM EDT) Magnesium 0.96 0.69 - 1.07 mmol/L [facility] Blood 05/16/2023 5:22 PM EDT 05/16/2023 5:27 PM EDT Narrative Resulting Agency Comment Spec In Lab Alirio Hudson MD CHEMISTRY ORDERABLE S Performing Organization Address [facility] Co de Phone Number [facility] [place] [address] * (ABNORMAL) Basic Metabolic Panel (non-fasting) (05/16/2023 5:22 PM EDT) Glucose Lvl 106 65 - 199 mg/dL [facility] Comment:Diabetes: >=200 mg/d L plus symptoms BUN 103(H) 8 - 18 mg/dL [facility] Creatinine 3.91(H) 0.70 - 1.20 mg/dL [facility] Comment:result rechecked-imm Sodium 132(L) 135 - 145 mmol/L [facility] Potassium 3.6 3.5 - 5.0 mmol/L [facility] Comment: Please note: ??Patients with WBC >100,000 may have falsely elevated Potassium levels. ??For accurate Potassium quantification in these patients send serum separator tube (gold top) for subsequent determinations. ??Contact the Clinical Chemistry Laboratory if there are any questions. Chloride 92(L) 98 - 107 mmol/L [facility] CO2 22 22 - 31 mmol/L [facility] Anion Gap 18(H) 5 - 15 mmol/L [facility] Calcium 9.7 8.5 - 10.5 mg/dL [facility] Estimated GFR 12(L) >=60 mL/min/1. 73 m?? [facility] Comment: This patient's estimated GFR [...] Lab Alirio Hudson MD CHEMISTRY ORDERABLE S [facility] [place] [address] * (ABNORMAL) Potassium (05/16/2023 11:43 AM EDT) Potassium 3.3(L) 3.5 - 5.0 mmol/L [facility] [...] Lab Alirio Hudson MD CHEMISTRY ORDERABLE S [facility] [place] [address] * (ABNORMAL) Ferritin (05/16/2023 4:41 AM EDT) Ferritin 1,813(H) 30 - 400 ng/mL [facility] Comment: Pediatric reference ranges not verified at [facility], interpret with caution. Reference ranges for females greater than 50 years of age approach values for men, i.e., 30-400 ng/mL. Blood 05/16/2023 4:41 AM EDT 05/16/2023 4:54 AM EDT Narrative Resulting Agency Comment Spec In Lab Kristopher Ayoub MD CHEMISTRY ORDERABLES Performing Organization Address City/[facility]/ZIP Co de Phone Number [facility] [place] [address] * (ABNORMAL) PTH (05/16/2023 4:41 AM EDT) [facility] PTH 120(H) 15 - 65 pg/mL [facility] Blood 05/16/2023 4:41 AM EDT 05/16/2023 4:54 AM EDT Narrative Resulting Agency Comment Spec In Lab Kristopher Ayoub MD CHEMISTRY ORDERABLES Performing Organization Address City/[facility]/ZIP Co de Phone Number [facility] [place] [address] * Vitamin D, 25-Hydroxy (05/16/2023 4:41 AM EDT) 25-OH Vit D Total 33 21 - 100 ng/mL [facility] 25-OH Vit D Interp Sufficient [facility] Blood 05/16/2023 4:41 AM EDT 05/16/2023 4:54 AM EDT Narrative Resulting Agency Comment Spec In Lab Kristopher Ayoub MD CHEMISTRY ORDERABLES [facility] [place] [address] * (ABNORMAL) Blood Gas Venous ([facility]) (05/16/2023 4:22 AM EDT) pH Mike 7.41 7.32 - 7.42 [facility] pCO2 Mike 32(L) 41 - 51 mmHg [facility] pO2 Mike 73(H) 25 - 40 mmHg [facility] HCO3 Mike 19.6 mmol/L [facility] BE Mike -5.1 mmol/L [facility] Hgb Blood Gas 9.7(L) 11.7 - 15.5 g/dL [facility] O2HB Mike 92.8 % [facility] COHB Mike 0.1 % [facility] Comment: Nonsmokers: 0.5-1.5% COHB Smokers: Variable, but usually less than 10% Toxic: 20-30% COHB Lethal: Greater than 60% COHB METHB Mike 0.3 <=1.5 % [facility] Na Whole Blood 130(L) 135 - 145 mmol/L [facility] K Whole Blood 3.7 3.5 - 5.0 mmol/L [facility] Comment: Please note: Patients with WBC >100,000 may have falsely elevated Potassium levels. Contact the Clinical Chemistry Laboratory if there are any questions. ICa Whole Blood 1.15 1.15 - 1.33 mmol/L [facility] Comment: Note: ??Total bilirubin higher than 20 mg/dL may lead to falsely low ionized calcium. CL Whole Blood 95(L) 98 - 107 mmol/L [facility] Gluc Whole Bld 82 65 - 199 mg/dL [facility] Comment:Diabetes: >=200 mg/d L plus symptoms Lactate WB 1.1 0.5 - 2.2 mmol/L [facility] BGas Source Venous [facility] Blood Venous Draw / Unknown 05/16/2023 4:22 AM EDT 05/16/2023 4:31 AM EDT Narrative Resulting Agency Comment Spec In Lab Bonita TOBAR CHEMISTRY ORDERABLES [facility] [place] [address] * (ABNORMAL) Differential, Automated (05/16/2023 4:20 AM EDT) Neutrophils % 84.1 % [facility] Neutr Abs (ANC) 6.22(H) 1.70 - 6.10 x10(3)/mc L [facility] Lymphocytes % 5.8 % [facility] Lymphocytes Abs 0.4(L) 0.9 - 3.2 x10(3)/ L [facility] Monocytes % 8.8 % [facility] Monocyte Abs 0.6 0.3 - 0.9 x10(3)/ L [facility] Eosinophils % 0.4 % [facility] Eosinophils Abs 0.0 0.0 - 0.4 x10(3)/mc L [facility] Basophils % 0.0 % [facility] Basophils Abs 0.0 0.0 - 0.1 x10(3)/mc L [facility] Immature Gran % 0.90 % [facility] Comment: Immature granulocytes(IG's)percentage and absolute count will include metamyelocytes, myelocytes, and promyelocytes. Blood smears from CBCs yielding IG's will be scanned manually for concordance. If this scan disagrees with the automated IG or if promyelocytes are noted, a manual differential will be performed. Amanda Gran Abs 0.07(H) 0.00 - 0.04 x10(3)/mc L [facility] Blood 05/16/2023 4:20 AM EDT 05/16/2023 4:29 AM EDT Narrative Resulting Agency Comment Spec In Lab James Agustin MD HEMATOLOGY ORDER JODIE [facility] [place] [address] * (ABNORMAL) Hemogram (05/16/2023 4:20 AM EDT) WBC 7.4 4.0 - 9.5 x10(3)/[facility] RBC 2.40(L) 4.00 - 5.21 x10(6)/[facility] Hemoglobin 7.8(L) 11.7 - 15.5 g/dL [facility] Hematocrit 22.5(L) 35.7 - 45.8 % [facility] MCV 93.8 82.6 - 94.4 fL [facility] MCH 32.5(H) 27.1 - 32.0 pg [facility] MCHC 34.7 31.7 - 35.0 g/dL [facility] Platelets 120(L) 145 - 357 x10(3)/[facility] LABORATORY RDWSD 42.9 37.0 - 46.0 [facility] RDWCV 12.9 11.5 - 14.1 % [facility] MPV 11.3 7.6 - 12.9 fL [facility] nRBC % Auto 0.7 % [facility] nRBC Abs Auto 0.050(H) 0.000 - 0.000 x10(3)/[facility] Blood 05/16/2023 4:20 AM EDT 05/16/2023 4:29 AM EDT Narrative Resulting Agency Comment Spec In Lab James Agustin MD HEMATOLOGY ORDER JODIE [facility] [place] [address] * (ABNORMAL) Basic Metabolic Panel (non-fasting) (05/16/2023 4:20 AM EDT) Glucose Lvl 89 65 - 199 mg/dL [facility] Comment:Diabetes: >=200 mg/d L plus symptoms BUN 108(H) 8 - 18 mg/dL [facility] Creatinine 4.74(H) 0.70 - 1.20 mg/dL [facility] Comment:result rechecked-OLIVA Sodium 132(L) 135 - 145 mmol/L [facility] Potassium 3.9 3.5 - 5.0 mmol/L [facility] Comment: Please note: ??Patients with WBC >100,000 may have falsely elevated Potassium levels. ??For accurate Potassium quantification in these patients send serum separator tube (gold top) for subsequent determinations. ??Contact the Clinical Chemistry Laboratory if there are any questions. Chloride 95(L) 98 - 107 mmol/L [facility] CO2 18(L) 22 - 31 mmol/L [facility] Anion Gap 19(H) 5 - 15 mmol/L [facility] Calcium 9.2 8.5 - 10.5 mg/dL [facility] Estimated GFR 10(L) >=60 mL/min/1. 73 m?? [facility] Comment: This patient's estimated GFR [...] MD CHEMISTRY ORDERABLE S Performing Organization Address [facility]/ZIP Co de Phone Number [facility] [place] [address] * (ABNORMAL) Iron and TIBC (05/16/2023 4:20 AM EDT) Pathologist [facility] Iron 31 30 - 150 mcg/dL [facility] TIBC 259 250 - 450 mcg/dL [facility] Iron Saturation 12(L) 20 - 50 % [facility] Blood 05/16/2023 4:20 AM EDT 05/16/2023 4:29 AM EDT Narrative Resulting Agency Comment Spec In Lab Kristopher Ayoub MD CHEMISTRY ORDERABLES Performing Organization Address [facility]/ZIP Co de Phone Number [facility] [place] [address] * (ABNORMAL) Basic Metabolic Panel (non-fasting) (05/15/2023 12:50 AM EDT) [facility] Glucose Lvl 101 65 - 199 mg/dL [facility] Comment:Diabetes: >=200 mg/d L plus symptoms BUN 109(H) 8 - 18 mg/dL [facility] Creatinine 5.62(H) 0.70 - 1.20 mg/dL [facility] Comment:result rechecked-KS Sodium 131(L) 135 - 145 mmol/L [facility] Comment:result rechecked-KS Potassium 3.7 3.5 - 5.0 mmol/L [facility] Comment: result rechecked-KS Please note: ??Patients with WBC >100,000 may have falsely elevated Potassium levels. ??For accurate Potassium quantification in these patients send serum separator tube (gold top) for subsequent determinations. ??Contact the Clinical Chemistry Laboratory if there are any questions. Chloride 92(L) 98 - 107 mmol/L [facility] Comment:result rechecked-KS CO2 18(L) 22 - 31 mmol/L [facility] Comment:result rechecked-KS Anion Gap 21(H) 5 - 15 mmol/L [facility] Calcium 8.9 8.5 - 10.5 mg/dL [facility] Estimated GFR 8(L) >=60 mL/min/1. 73 m?? [facility] Comment: This patient's estimated GFR [...] Lab Alirio Hudson MD CHEMISTRY ORDERABLE S [facility] [place] [address] * (ABNORMAL) Hemogram (05/15/2023 12:50 AM EDT) WBC 9.1 4.0 - 9.5 x10(3)/[facility] LABORATORY RBC 2.19(L) 4.00 - 5.21 x10(6)/[facility] LABORATORY Hemoglobin 7.2(L) 11.7 - 15.5 g/dL [facility] Hematocrit 20.6(L) 35.7 - 45.8 % [facility] MCV 94.1 82.6 - 94.4 fL [facility] MCH 32.9(H) 27.1 - 32.0 pg [facility] MCHC 35.0 31.7 - 35.0 g/dL [facility] Platelets 109(L) 145 - 357 x10(3)/[facility] RDWSD 43.6 37.0 - 46.0 fL [facility] RDWCV 12.9 11.5 - 14.1 % [facility] MPV 10.4 7.6 - 12.9 fL [facility] nRBC % Auto 2.1 % [facility] nRBC Abs Auto 0.190(H) 0.000 - 0.000 x10(3)/[facility] LABORATORY Blood 05/15/2023 12:5 0 AM EDT 05/15/2023 12:52 AM EDT Narrative Resulting Agency Comment Spec In Lab Alirio Hudson MD HEMATOLOGY ORDERABL ES [facility] [place] [address] * (ABNORMAL) BLOOD GAS 2 VENOUS (05/15/2023 12:49 AM EDT) pH Mike 7.33 7.32 - 7.42 [facility] pCO2 Mike 37(L) 41 - 51 mmHg [facility] pO2 Mike 34 25 - 40 mmHg [facility] HCO3 Mike 19.1 mmol/L [facility] BE Mike -6.8 mmol/L [facility] Hgb Blood Gas 10.8(L) 11.7 - 15.5 g/dL [facility] O2HB Mike 58.1 % [facility] COHB Mike 0.3 % [facility] Comment: Nonsmokers: 0.5-1.5% COHB Smokers: Variable, but usually less than 10% Toxic: 20-30% COHB Lethal: Greater than 60% COHB METHB Mike 0.6 <=1.5 % [facility] Na Whole Blood 136 135 - 145 mmol/L [facility] K Whole Blood 3.7 3.5 - 5.0 mmol/L [facility] Comment: Please note: Patients with WBC >100,000 may have falsely elevated Potassium levels. Contact the Clinical Chemistry Laboratory if there are any questions. ICa Whole Blood 1.12(L) 1.15 - 1.33 mmol/L [facility] Comment: Note: ??Total bilirubin higher than 20 mg/dL may lead to falsely low ionized calcium. CL Whole Blood 95(L) 98 - 107 mmol/L [facility] Gluc Whole Bld 101 65 - 199 mg/dL [facility] Comment:Diabetes: >=200 mg/d L plus symptoms Lactate WB 1.3 0.5 - 2.2 mmol/L [facility] Flow Mike 1.0 LPM [facility] BGas Source Venous [facility] Blood 05/15/2023 12:4 9 AM EDT 05/15/2023 12:49 AM EDT Alirio Hudson MD CHEMISTRY ORDERABLE S Performing Organization Address City/State/[facility] Co de Phone Number [facility] [place] [address] * US Retroperitoneal Complete (05/14/2023 3:53 PM [...] signed by: Hayden Robledo MD, [facility] ([phone]), at 05/14/2023 4:32 PM Thank you for letting us participate in the care of this patient. If you are a health care provider and have any questions regarding this report, please contact the number above. For patients who have questions, please contact the health special needs child caregiver that requested your imaging first. ? Hayden Robledo, Staff Physician Electronically Signed Final Report ?? 05/14/2023 04:39 pm Narrative 05/14/2023 4:39 PM EDT Renal ? (Signed Final 05/14/2023 04:39 pm) PATIENT INFO: ID #: ? [id number] ?: ??55 (67 yrs)(F) Name: ? PURNIMA THACKER ?Visit Date: 05/14/2023 03:44 pm PERFORMED BY: Attending: ?Meena CULP, Hayden Stafford Resident: ? Anand Camejo MD Performed By: ? Consuelo Tello RDMS Referred By: ?ALIRIO HUDSON Location: ? [place] SERVICE(S) PROVIDED: URETRO - Retroperitoneal Complete - [id number] ? [id number] INDICATIONS: EVANS COMPARISON: CT: Abdomen/Pelvis 05/11/23 RIGHT [...] 05/14/2023 04:39 pm) PATIENT INFO: ID #: [id number] : 55 (67 yrs)(F) Name: PURNIMA THACKER Visit Date: 05/14/2023 03:44 pm PERFORMED BY: Attending: Hayden Robledo MD Resident: Anand Camejo MD Performed By: Consuelo Tello RDMS Referred By: AILRIO HUDSON Location: [place] SERVICE(S) PROVIDED: URETRO - Retroperitoneal Complete - [id number] INDICATIONS: EVANS COMPARISON: CT: Abdomen/Pelvis 05/11/23 RIGHT [...] who have questions, please contact the health special needs child caregiver that requested your imaging first. Hayden Robledo, Staff Physician Electronically Signed Final Report 05/14/2023 04:39 pm Alirio Hudson MD IMG US GEN ORDERABL ES * CK (05/14/2023 3:17 PM EDT) CK, Total 123 0 - 160 unit/L [facility] Blood 05/14/2023 3:17 PM EDT 05/14/2023 3:31 PM EDT Narrative Resulting Agency Comment Spec In Lab Alirio Hudson MD CHEMISTRY ORDERABLE S Performing Organization Address [facility]/ZIP Co de Phone Number [facility] [place] [address] * (ABNORMAL) Uric acid (05/14/2023 3:17 PM EDT) Uric Acid 14.9(H) 2.5 - 6.5 mg/dL [facility] Blood 05/14/2023 3:17 PM EDT 05/14/2023 3:31 PM EDT Narrative Resulting Agency Comment Spec In Lab Alirio Hudson MD CHEMISTRY ORDERABLE S Performing Organization Address [facility]/ZIP Co de Phone Number [facility] [place] [address] * (ABNORMAL) Osmolality (05/14/2023 3:17 PM EDT) Osmolality 311(H) 275 - 295 mOsm/kg [facility] Blood 05/14/2023 3:17 PM EDT 05/14/2023 3:31 PM EDT Narrative Resulting Agency Comment Spec In Lab Alirio Hudson MD CHEMISTRY ORDERABLE S Performing Organization Address City/[facility]/ZIP Co de Phone Number [facility] [place] [address] * (ABNORMAL) Differential, Automated (05/14/2023 1:10 AM EDT) Neutrophils % 87.2 % [facility] Neutr Abs (ANC) 9.74(H) 1.70 - 6.10 x10(3)/ L [facility] Lymphocytes % 3.9 % [facility] Lymphocytes Abs 0.4(L) 0.9 - 3.2 x10(3)/[facility] LABORATORY Monocytes % 7.9 % [facility] Monocyte Abs 0.9 0.3 - 0.9 x10(3)/[facility] LABORATORY Eosinophils % 0.0 % [facility] Eosinophils Abs 0.0 0.0 - 0.4 x10(3)/[facility] LABORATORY Basophils % 0.1 % [facility] Basophils Abs 0.0 0.0 - 0.1 x10(3)/[facility] LABORATORY Immature Gran % 0.90 % [facility] Comment: Immature granulocytes(IG's)percentage and absolute count will include metamyelocytes, myelocytes, and promyelocytes. Blood smears from CBCs yielding IG's will be scanned manually for concordance. If this scan disagrees with the automated IG or if promyelocytes are noted, a manual differential will be performed. Amanda Gran Abs 0.10(H) 0.00 - 0.04 x10(3)/[facility] LABORATORY Blood 05/14/2023 1:10 AM EDT 05/14/2023 1:24 AM EDT Narrative Resulting Agency Comment Spec In Lab Bonita TOBAR HEMATOLOGY ORDERABLE S [facility] [place] [address] * (ABNORMAL) Hemogram (05/14/2023 1:10 AM EDT) Pathologist [facility] WBC 11.2(H) 4.0 - 9.5 x10(3)/[facility] LABORATORY RBC 2.19(L) 4.00 - 5.21 x10(6)/[facility] LABORATORY Hemoglobin 7.2(L) 11.7 - 15.5 g/dL [facility] Hematocrit 20.3(L) 35.7 - 45.8 % [facility] MCV 92.7 82.6 - 94.4 [facility] LABORATORY MCH 32.9(H) 27.1 - 32.0 pg [facility] MCHC 35.5(H) 31.7 - 35.0 g/dL [facility] Platelets 112(L) 145 - 357 x10(3)/[facility] LABORATORY RDWSD 41.4 37.0 - 46.0 [facility] LABORATORY RDWCV 12.5 11.5 - 14.1 % [facility] MPV 10.4 7.6 - 12.9 [facility] LABORATORY nRBC % Auto 1.5 % [facility] nRBC Abs Auto 0.170(H) 0.000 - 0.000 x10(3)/[facility] LABORATORY Blood 05/14/2023 1:10 AM EDT 05/14/2023 1:24 AM EDT Narrative Resulting Agency Comment Spec In Lab Bonita TOBAR HEMATOLOGY ORDERABLE S [facility] [place] [address] * (ABNORMAL) Comprehensive metabolic panel (non-fasting) (05/14/2023 1:10 AM EDT) Pathologist [facility] Glucose Lvl 120 65 - 199 mg/dL [facility] Comment:Diabetes: >=200 mg/d L plus symptoms BUN 98(H) 8 - 18 mg/dL [facility] Creatinine 4.80(H) 0.70 - 1.20 mg/dL [facility] Comment:result rechecked-ssc Sodium 132(L) 135 - 145 mmol/L [facility] Potassium 4.1 3.5 - 5.0 mmol/L [facility] Comment: Please note: ??Patients with WBC >100,000 may have falsely elevated Potassium levels. ??For accurate Potassium quantification in these patients send serum separator tube (gold top) for subsequent determinations. ??Contact the Clinical Chemistry Laboratory if there are any questions. Chloride 94(L) 98 - 107 mmol/L [facility] CO2 18(L) 22 - 31 mmol/L [facility] Anion Gap 20(H) 5 - 15 mmol/L [facility] Calcium 8.5 8.5 - 10.5 mg/dL [facility] Total Protein 5.8(L) 6.1 - 8.0 g/dL [facility] Albumin 3.6 3.2 - 5.2 g/dL [facility] AST 319(H) 0 - 30 unit/L [facility] ALT 437(H) 0 - 30 unit/L [facility] Alk Phos 86 35 - 105 unit/L [facility] Total Bilirubin 0.4 0.2 - 1.3 mg/dL [facility] Estimated GFR 9(L) >=60 mL/min/1. 73 m?? [facility] Comment: This patient's estimated GFR [...] MD CHEMISTRY ORDERABLE S Performing Organization Address [facility]/ZIP Co de Phone Number [facility] [place] [address] * APTT (05/13/2023 10:15 AM EDT) PTT 27 25 - 37 sec [facility] Comment: The PTT is NOT [...] Address [facility] Co de Phone Number [facility] [place] [address] * (ABNORMAL) Prothrombin Time (05/13/2023 10:15 AM EDT) PT 14.6(H) 9.4 - 12.5 sec [facility] INR 1.3 [facility] Comment: An INR <2.0 indicates [...] MD HEMATOLOGY ORDERABL ES Performing Organization Address [facility] Co de Phone Number [facility] [place] [address] * EKG 12 Lead (05/13/2023 9:22 AM EDT) Ventricular rate 92 BPM MUSE SYSTEM Atrial Rate 92 BPM MUSE SYSTEM P-R Interval 140 ms MUSE SYSTEM QRS Duration 104 ms MUSE SYSTEM Q-T Interval 384 ms MUSE SYSTEM QTC Calculated (Bezet) 474 ms MUSE SYSTEM Calculated P Almond 33 degrees MUSE SYSTEM Calculated R Almond 41 degrees MUSE SYSTEM Calculated T Almond -35 degrees MUSE SYSTEM INTERPRETATION Sinus rhythm with frequent Premature ventricular complexes Septal infarct , age undetermined ST & T wave abnormality, consider lateral ischemia Abnormal ECG When compared with ECG of 12-MAY-2023 10:10, Premature ventricular complexes are now Present I personally reviewed the tracing and edited the fellows interpretation Confirmed by fellow MD Anitha, [facility] ([id number]) on 05/13/2023 3:25:30 PM Confirmed by Maxx Best ([id number]) on 05/13/2023 8:30:56 PM MUSE SYSTEM 05/13/2023 9:22 AM EDT 05/13/2023 8:30 PM EDT Alirio Hudson MD ECG ORDERABLES MUSE SYSTEM * (ABNORMAL) Differential, Automated (05/13/2023 1:15 AM EDT) Pathologist [facility] Neutrophils % 88.1 % [facility] Neutr Abs (ANC) 7.62(H) 1.70 - 6.10 x10(3)/mc L [facility] Lymphocytes % 3.1 % [facility] Lymphocytes Abs 0.3(L) 0.9 - 3.2 x10(3)/mc L [facility] Monocytes % 7.9 % [facility] Monocyte Abs 0.7 0.3 - 0.9 x10(3)/mc L [facility] Eosinophils % 0.0 % [facility] Eosinophils Abs 0.0 0.0 - 0.4 x10(3)/mc L [facility] Basophils % 0.1 % [facility] Basophils Abs 0.0 0.0 - 0.1 x10(3)/mc L [facility] Immature Gran % 0.80 % [facility] Comment: Immature granulocytes(IG's)percentage and absolute count will include metamyelocytes, myelocytes, and promyelocytes. Blood smears from CBCs yielding IG's will be scanned manually for concordance. If this scan disagrees with the automated IG or if promyelocytes are noted, a manual differential will be performed. Amanda Gran Abs 0.07(H) 0.00 - 0.04 x10(3)/mc L [facility] Blood 05/13/2023 1:15 AM EDT 05/13/2023 1:29 AM EDT Narrative Resulting Agency Comment Spec In Lab Lorri TOBAR HEMATOLOGY ORDERABLE S [facility] [place] [address] * (ABNORMAL) Hemogram (05/13/2023 1:15 AM EDT) WBC 8.6 4.0 - 9.5 x10(3)/[facility] LABORATORY RBC 2.37(L) 4.00 - 5.21 x10(6)/[facility] LABORATORY Hemoglobin 7.8(L) 11.7 - 15.5 g/dL [facility] Hematocrit 22.2(L) 35.7 - 45.8 % [facility] MCV 93.7 82.6 - 94.4 fL [facility] MCH 32.9(H) 27.1 - 32.0 pg [facility] MCHC 35.1(H) 31.7 - 35.0 g/dL [facility] Platelets 130(L) 145 - 357 x10(3)/[facility]ORAT[facility] RDWSD 41.7 37.0 - 46.0 fL [facility] RDWCV 12.5 11.5 - 14.1 % [facility] MPV 10.2 7.6 - 12.9 fL [facility] nRBC % Auto 0.5 % [facility] nRBC Abs Auto 0.040(H) 0.000 - 0.000 x10(3)/mcL [facility] Blood 05/13/2023 1:15 AM EDT 05/13/2023 1:29 AM EDT Narrative Resulting Agency Comment Spec In Lab Lorri TOBAR HEMATOLOGY ORDERABLE S [facility] [place] [address] * (ABNORMAL) Hepatic Function Panel (05/13/2023 1:15 AM EDT) Total Protein 5.5(L) 6.1 - 8.0 g/dL [facility] Albumin 3.0(L) 3.2 - 5.2 g/dL [facility] AST 792(H) 0 - 30 unit/L [facility] ALT 903(H) 0 - 30 unit/L [facility] Alk Phos 85 35 - 105 unit/L [facility] Total Bilirubin 0.5 0.2 - 1.3 mg/dL [facility] Bili, Direct 0.3 0.0 - 0.3 mg/dL [facility] Blood 05/13/2023 1:15 AM EDT 05/13/2023 1:29 AM EDT Narrative Resulting Agency Comment Spec In Lab Alirio Hudson MD CHEMISTRY ORDERABLE S [facility] [place] [address] * (ABNORMAL) Basic Metabolic Panel (non-fasting) (05/13/2023 1:15 AM EDT) Glucose Lvl 107 65 - 199 mg/dL [facility] Comment:Diabetes: >=200 mg/d L plus symptoms BUN 82(H) 8 - 18 mg/dL [facility] Creatinine 3.15(H) 0.70 - 1.20 mg/dL [facility] Comment:result rechecked-JSJ Sodium 132(L) 135 - 145 mmol/L [facility] Potassium 3.8 3.5 - 5.0 mmol/L [facility] Comment: Please note: ??Patients with WBC >100,000 may have falsely elevated Potassium levels. ??For accurate Potassium quantification in these patients send serum separator tube (gold top) for subsequent determinations. ??Contact the Clinical Chemistry Laboratory if there are any questions. Chloride 95(L) 98 - 107 mmol/L [facility] CO2 20(L) 22 - 31 mmol/L [facility] Anion Gap 17(H) 5 - 15 mmol/L [facility] Calcium 8.3(L) 8.5 - 10.5 mg/dL [facility] Estimated GFR 16(L) >=60 mL/min/1. 73 m?? [facility] Comment: This patient's estimated GFR [...] Narrative Resulting Agency Comment Spec In Lab Aliiro Hudson MD CHEMISTRY ORDERABLE S [facility] [place] [address] * (ABNORMAL) BLOOD GAS 2 ARTERIAL (05/12/2023 3:57 PM EDT) pH Art 7.39 7.35 - 7.45 [facility] pCO2 Art 33(L) 35 - 45 mmHg [facility] pO2 Art 101 85 - 104 mmHg [facility] HCO3 Art 19.5(L) 20.0 - 26.0 mmol/L [facility] BE Art -5.5(L) -3.0 - 3.0 mmol/L [facility] Hgb Blood Gas 9.8(L) 11.7 - 15.5 g/dL [facility] O2HB Art 95.2 94.0 - 97.0 % [facility] COHB Art 0.2 % [facility] Comment: Nonsmokers: 0.5-1.5% COHB Smokers: Variable, but usually less than 10% Toxic: 20-30% COHB Lethal: Greater than 60% COHB METHB Art 0.8 <=1.5 % [facility] Na Whole Blood 129(L) 135 - 145 mmol/L [facility] K Whole Blood 3.8 3.5 - 5.0 mmol/L [facility] Comment: Please note: Patients with WBC >100,000 may have falsely elevated Potassium levels. Contact the Clinical Chemistry Laboratory if there are any questions. ICa Whole Blood 1.05(L) 1.15 - 1.33 mmol/L [facility] Comment: Note: ??Total bilirubin higher than 20 mg/dL may lead to falsely low ionized calcium. CL Whole Blood 96(L) 98 - 107 mmol/L [facility] Gluc Whole Bld 178 65 - 199 mg/dL [facility] Comment:Diabetes: >=200 mg/d L plus symptoms. Lactate WB 1.5 0.5 - 2.2 mmol/L [facility] FIO2 Art 40 % [facility] PF Ratio Art 252 [facility] Blood 05/12/2023 3:57 PM EDT 05/12/2023 3:57 PM EDT Alirio Hudson MD CHEMISTRY ORDERABLE S Performing Organization Address City/[facility]/ZIP Co de Phone Number [facility] [place] [address] * (ABNORMAL) Coox2 (05/12/2023 2:25 PM EDT) pO2 Coox 37 mmHg [facility] Hgb Blood Gas 9.5(L) 11.7 - 15.5 g/dL [facility] O2HB Coox 59.9 % [facility] COHB Coox 0.3 % [facility] Comment: Nonsmokers: 0.5-1.5% COHB Smokers: Variable, but usually less than 10% Toxic: 20-30% COHB Lethal: Greater than 60% COHB METHB Coox 0.7 <=1.5 % [facility] Source Coox Mixed Venous [facility] Blood 05/12/2023 2:25 PM EDT 05/12/2023 2:25 PM EDT Alirio Hudson MD CHEMISTRY ORDERABLE S Performing Organization Address City/[facility] Co de Phone Number [facility] [place] [address] * (ABNORMAL) BLOOD GAS 2 ARTERIAL (05/12/2023 2:23 PM EDT) pH Art 7.37 7.35 - 7.45 [facility] pCO2 Art 36 35 - 45 mmHg [facility] pO2 Art 102 85 - 104 mmHg [facility] HCO3 Art 20.4 20.0 - 26.0 mmol/L [facility] BE Art -4.8(L) -3.0 - 3.0 mmol/L [facility] Hgb Blood Gas 12.7 11.7 - 15.5 g/dL [facility] O2HB Art 95.4 94.0 - 97.0 % [facility] COHB Art 0.3 % [facility] Comment: Nonsmokers: 0.5-1.5% COHB Smokers: Variable, but usually less than 10% Toxic: 20-30% COHB Lethal: Greater than 60% COHB METHB Art 0.7 <=1.5 % [facility] Na Whole Blood 129(L) 135 - 145 mmol/L [facility] K Whole Blood 3.7 3.5 - 5.0 mmol/L [facility] Comment: Please note: Patients with WBC >100,000 may have falsely elevated Potassium levels. Contact the Clinical Chemistry Laboratory if there are any questions. ICa Whole Blood 1.05(L) 1.15 - 1.33 mmol/L [facility] Comment: Note: ??Total bilirubin higher than 20 mg/dL may lead to falsely low ionized calcium. CL Whole Blood 95(L) 98 - 107 mmol/L [facility] Gluc Whole Bld 168 65 - 199 mg/dL [facility] Comment:Diabetes: >=200 mg/d L plus symptoms. Lactate WB 1.8 0.5 - 2.2 mmol/L [facility] FIO2 Art 40 % [facility] PF Ratio Art 255 [facility] Blood 05/12/2023 2:23 PM EDT 05/12/2023 2:23 PM EDT Alirio Hudson MD CHEMISTRY ORDERABLE S [facility] [place] [address] * (ABNORMAL) Troponin (05/12/2023 2:05 PM EDT) Troponin-T HS 1,022(H) <=14 ng/L [facility] Comment: This patient's troponin T [...] troponin value can be found in the [facility] Test Catalog Troponin - [facility] Test Catalog Reference: Fourth [place] Definition of Myocardial Infarction. Journal of the [employer] 2018;72:8170-5622 Blood 05/12/2023 2:05 PM EDT 05/12/2023 2:14 PM EDT Narrative Resulting Agency Comment Spec In Lab Alirio Hudson MD CHEMISTRY ORDERABLE S Performing Organization Address [facility]/ZIP Co de Phone Number [facility] [place] [address] * (ABNORMAL) Hemoglobin (05/12/2023 2:05 PM EDT) Hemoglobin 8.5(L) 11.7 - 15.5 g/dL [facility] Blood 05/12/2023 2:05 PM EDT 05/12/2023 2:14 PM EDT Narrative Resulting Agency Comment Spec In Lab Alirio Hudson MD HEMATOLOGY ORDERABL ES Performing Organization Address City/[facility]/ZIP Co de Phone Number [facility] [place] [address] * Potassium (05/12/2023 2:05 PM EDT) Potassium 3.9 3.5 - 5.0 mmol/L [facility] Lab Alirio Hudson MD CHEMISTRY ORDERABLE S [facility] [place] [address] * (ABNORMAL) BLOOD GAS 2 ARTERIAL (05/12/2023 11:05 AM EDT) pH Art 7.34(L) 7.35 - 7.45 [facility] pCO2 Art 42 35 - 45 mmHg [facility] pO2 Art 73(L) 85 - 104 mmHg [facility] HCO3 Art 22.1 20.0 - 26.0 mmol/L [facility] BE Art -3.6(L) -3.0 - 3.0 mmol/L [facility] Hgb Blood Gas 9.3(L) 11.7 - 15.5 g/dL [facility] O2HB Art 89.3(L) 94.0 - 97.0 % [facility] COHB Art 0.2 % [facility] Comment: Nonsmokers: 0.5-1.5% COHB Smokers: Variable, but usually less than 10% Toxic: 20-30% COHB Lethal: Greater than 60% COHB METHB Art 0.9 <=1.5 % [facility] Na Whole Blood 131(L) 135 - 145 mmol/L [facility] K Whole Blood 3.8 3.5 - 5.0 mmol/L [facility] Comment: Please note: Patients with WBC >100,000 may have falsely elevated Potassium levels. Contact the Clinical Chemistry Laboratory if there are any questions. ICa Whole Blood 1.04(L) 1.15 - 1.33 mmol/L [facility] Comment: Note: ??Total bilirubin higher than 20 mg/dL may lead to falsely low ionized calcium. CL Whole Blood 96(L) 98 - 107 mmol/L [facility] Gluc Whole Bld 152 65 - 199 mg/dL [facility] Comment:Diabetes: >=200 mg/d L plus symptoms. Lactate WB 2.8(H) 0.5 - 2.2 mmol/L [facility] FIO2 Art 40 % [facility] PF Ratio Art 182 [facility] Blood 05/12/2023 11:0 5 AM EDT 05/12/2023 11:05 AM EDT Alirio Hudson MD CHEMISTRY ORDERABLE S Performing Organization Address City/State/[facility] Co de Phone Number [facility] [place] [address] * (ABNORMAL) BLOOD GAS 2 ARTERIAL (05/12/2023 10:14 AM EDT) pH Art 7.18(Criti gabrielle) 7.35 - 7.45 [facility] Comment:Noted by electrical instrument technician. pCO2 Art 45 35 - 45 mmHg [facility] pO2 Art 186(H) 85 - 104 mmHg [facility] HCO3 Art 16.2(L) 20.0 - 26.0 mmol/L [facility] BE Art -12.2(L) -3.0 - 3.0 mmol/L [facility] Hgb Blood Gas 10.0(L) 11.7 - 15.5 g/dL [facility] O2HB Art 97.0 94.0 - 97.0 % [facility] COHB Art 0.2 % [facility] Comment: Nonsmokers: 0.5-1.5% COHB Smokers: Variable, but usually less than 10% Toxic: 20-30% COHB Lethal: Greater than 60% COHB METHB Art 0.9 <=1.5 % [facility] Na Whole Blood 129(L) 135 - 145 mmol/L [facility] K Whole Blood 3.6 3.5 - 5.0 mmol/L [facility] Comment: Please note: Patients with WBC >100,000 may have falsely elevated Potassium levels. Contact the Clinical Chemistry Laboratory if there are any questions. ICa Whole Blood 1.10(L) 1.15 - 1.33 mmol/L [facility] Comment: Note: ??Total bilirubin higher than 20 mg/dL may lead to falsely low ionized calcium. CL Whole Blood 97(L) 98 - 107 mmol/L [facility] Gluc Whole Bld 161 65 - 199 mg/dL [facility] Comment:Diabetes: >=200 mg/d L plus symptoms. Lactate WB 3.3(H) 0.5 - 2.2 mmol/L [facility] FIO2 Art 100 % [facility] PF Ratio Art 186 [facility] Blood 05/12/2023 10:1 4 AM EDT 05/12/2023 10:14 AM EDT Alirio Hudson MD CHEMISTRY ORDERABLE S Performing Organization Address City/State/[facility] Co de Phone Number [facility] [place] [address] * EKG 12 Lead (05/12/2023 10:10 AM EDT) Ventricular rate 116 BPM MUSE SYSTEM Atrial Rate 116 BPM MUSE SYSTEM P-R Interval 158 ms MUSE SYSTEM QRS Duration 114 ms MUSE SYSTEM Q-T Interval 348 ms MUSE SYSTEM QTC Calculated (Bezet) 483 ms MUSE SYSTEM Calculated P Almond 37 degrees MUSE SYSTEM Calculated R Almond 31 degrees MUSE SYSTEM Calculated T Almond -138 degrees MUSE SYSTEM INTERPRETATION Sinus tachycardia with intermittent aberrant ventricular conduction Possible Left atrial enlargement Incomplete left bundle block Left ventricular hypertrophy with repolarization abnormality ( Sokolow-Orozco , [place] product ) ST & T wave abnormality in Inferolateral leads Abnormal ECG When compared with ECG of 10-MAY-2023 13:16, ST & T wave abnormality is more pronounced in inferolateral leads I personally reviewed the tracing and edited the fellows interpretation Confirmed by fellow MD Anuja, Jim ([id number]) on 05/12/2023 1:04:20 PM Confirmed by MD Villareal Danette ([id number]) on 05/12/2023 9:28:34 PM MUSE SYSTEM 05/12/2023 [...] who have questions please contact the health special needs child caregiver that requested your imaging first. ? Electronically signed by: Chyna Johnson MD, [facility] ??([phone]), at 05/12/2023 10:08 AM Narrative 05/12/2023 10:08 AM EDT EXAMINATION: XR CHEST ONE VIEW CLINICAL HISTORY: Post TAVR TECHNIQUE: 1 view of the chest COMPARISON: Chest radiograph from earlier today FINDINGS: Interval placement of endotracheal tube with tip terminating 2 cm above the shira. Interval placement of enteric tube projecting along the expected course of the esophagus and outside the ahemm-ed-mocw. Interval retraction of right IJ approach pulmonary [...] expected course ofthe esophagus and outside the dylvl-is-tyry. Interval retraction of right IJ approach pulmonary [...] patients who have questions please contactthe health special needs child caregiver that requested your imaging first. Alirio Hudson [...] 1955 ? Height: 154 cm ? Account: [id number] Age: 67 yrs ? Weight: 75 kg Gender: Female ?BSA: 1.7 m2 Ordering Physician: RADHA HOLLINS Referring Physician: RADHA HOLLINS Performed By: Dilma Bee RDCS Reason For Study: Guidance for TAVR procedure Exam Location: [facility]. Interpretation Summary PRE TAVR: There [...] mL/m2. POST TAVR: Normal function of the wixgp-ru-rngne prosthesis. See below for hemodynamic parameters. Slight improvement in left and right ventricular systolic function. LVEF now 20-25%. No pericardial effusion. See report for additional findings. Procedure Limited - 89927. Doppler - 90593. Color Doppler - 50580. Left Ventricle Left ventricle is of normal [...] Date: 307:33 AMBP: 96/63 mmHg Patient Location: [address] : 1955 Height: 154 cm Account: [id number] Age: 67 yrs Weight: 75 kg Gender: Female BSA: 1.7 m2 Ordering Physician: RADHA HOLLINS Referring Physician: RADHA HOLLINS Performed By: Dilma Bee RDCS Reason For Study: Guidance for TAVR procedure Exam Location: [facility]. Interpretation Summary PRE TAVR: There [...] 28mL/m2. POST TAVR: Normal function of the ierbh-vf-hsoqn prosthesis. See belowfor hemodynamic parameters. Slight improvement in left and right ventricularsystolic function. LVEF now 20-25%. No pericardial effusion. See report for additional findings. Procedure Limited - 64338. Doppler - 15216. Color Doppler - 22715. Left Ventricle Left ventricle is of normal [...] Modality Other Narrative 05/12/2023 2:37 PM EDT ?[facility] ? Cardiac Catheterization/Intervention Report ? Patient Name: Kirstie, Purnima M. ? Procedure Date: 05/12/2023 ? A #: [id number] ? Primary Physician: Antelmo Sharma ? Case #: [id number] ? File Name: [id number] ? Catheterization Order Number: [id number] ? [facility] ? Final Report [place], [place] ? Patient Name: ? Purnimakary Thacker ? ID#: ?[id number] ? : ?1955 ? Procedure Date: ? May 12, 2023 ? Case #: ? [id number] ? Room: ? 6 ? Case Physicians: [...] Deployment ?* Temporary Pacemaker Insertion In Senior Engineering Manager ?* Endotracheal Intubation By Non-Cath Physician ?* [...] ??A premounted 4.00 x 30 mm Nils Palouse (MINNA) was ? deployed with a maximum [...] calculated STS risk score was 30.1%. A dcikw-hh-jbzyg ?procedure was performed on the pre-existing bioprosthetic stented ?prosthesis. The priority of the gtqpo-ni-idffl procedure was Elective. ?The procedure was performed [...] Lai 3 Ultra RESILIA 23 mm THV (s/o=[id number]) transcatheter ?valve was inserted using standard technique. [...] to nor was it given in the ?cath laboratory technician. ?Recommended anti-platelet/anti-thrombotic regimen: ?Continue aspirin 81 mg daily for indefinitely. ?These recommendations are made at the time of the intervention. Patient ?and provider preferences or a changing clinical situation may require ?modification of this regimen. Consult [facility] Interventional Cardiology for ?questions. ? Conclusions: ?* [...] regimen. ? Comments: ?Successful right transfemoral TAVR Thspx-yr-Szpcm with a 23 mm Lai 3 ?THV. [...] insertion-coronary, access site angiography, ?temporary pacemaker in cath laboratory technician, intubation-non cath physician, vascular ?closure device, transthoracic echo ??and TAVR. Dr. Alirio Hudson M.D. ?performed the left heart catheterization, access site angiography, ?temporary pacemaker in cath laboratory technician, vascular closure device, transthoracic ?echo , TAVR and CPR during cath. Dr. Lynda Mcgowan M.D. performed the ABG, ?anesthesia and intubation-non cath physician. ? Antelmo Sharma M.D. ? Electronically Signed by: Antelmo Sharma M.D. ? Report Finalized: 05/12/2023 ??14:31 ? Report Last Ammended: 07/01/2023 ??11:30 ? Procedure Note Antelmo Sharma MD - 07/01/[address] [facility] Cardiac Catheterization/Intervention Report Patient Name: Purnmia Thacker Procedure Date: 05/12/2023 A #: [id number] Primary Physician: Antelmo Sharma Case #: [id number] File Name: [id number] Catheterization Order Number: [id number] [facility] FinalReport [place], [place] Patient Name: Purnima Thacker ID#:[id number] :1955 Procedure Date: May 12, 2023 Case [...] Deployment * Temporary Pacemaker Insertion In Senior Engineering Manager * Endotracheal Intubation By Non-Cath Physician * [...] guide. A premounted 4.00 x 30 mm [place] Palouse (MINNA) was deployed with a maximum inflation [...] calculated STS risk score was 30.1%. A laptf-ea-faaiu procedure was performed on the pre-existing bioprosthetic stented prosthesis. The priority of the mzpmr-uj-twall procedure wasElective. The procedure was performed under Moderate sedation performed byLynda Mcgowan M.D. (see anesthesia report for additional details). Alirio Hudson M.D. participated in the case (see Cardiac Surgery reportfor additional details). The TAVR sheath was a 14 Fr Corona eSheath Introducer and theaccess site was femoral. Rapid ventricular pacing was performed. An Corona Lai 3 Ultra RESILIA 23 mm THV (s/a=[id number])transcatheter valve was inserted using standard technique. The [...] prior to nor was it given inthe cath laboratory technician. Recommended anti-platelet/anti-thrombotic regimen: Continue aspirin 81 mg daily for indefinitely. These recommendations are made at the time of the intervention.Patient and provider preferences or a changing clinical situation mayrequire modification of this regimen. Consult [facility] Interventional Cardiologyfor questions. Conclusions: * Nonobstructive disease [...] this regimen. Comments: Successful right transfemoral TAVR Coeeh-zm-Fjzsj with a 23 mmSapien 3 THV. We [...] insertion-coronary, access site angiography, temporary pacemaker in cath laboratory technician, intubation-non cath physician,vascular closure device, transthoracic echo and TAVR. Dr. Alirio Hudson M.D. performed the left heart catheterization, access site angiography, temporary pacemaker in cath laboratory technician, vascular closure device,transthoracic echo , TAVR and [...] POC pH 7.20(Crit ical) 7.35 - 7.45 [facility] Comment:Critical value OKYamel C Lab. POC PCO2 42 35 - 45 mmHg [facility] POC PO2 260(H) 85 - 104 mmHg [facility] POC Base Excess -11.0(L) -3.0 - 3.0 mmol/L [facility] POC HCO3 16.7(L) 20.0 - 26.0 mmol/L [facility] POC Sodium 129(L) 135 - 145 mmol/L [facility] POC Potassium 3.8 3.5 - 5.0 mmol/L [facility] POC Ionized Ca 1.12(L) 1.15 - 1.33 mmol/L [facility] POC Hematocrit 23.0(L) 34.0 - 45.0 % [facility] POC Calc Hgb 7.8(L) 11.2 - 15.7 g/dL [facility] Comment:The calculation of h emoglobin from hematocrit assumes a normal MCHC. POC Bgas Loc CC Lab [facility] Blood 05/12/2023 8:50 AM EDT 05/13/2023 12:00 PM EDT Alirio Hudson MD CHEMISTRY ORDERABLE S Performing Organization Address City/State/[facility] Co de Phone Number [facility] [place] [address] * (ABNORMAL) Point of Care Blood Gas Historical (05/12/2023 8:10 AM EDT) POC pH 7.27(Crit ical) 7.35 - 7.45 [facility] Comment:Critical value Yamel KRAUSE C Lab. POC PCO2 37 35 - 45 mmHg [facility] POC PO2 29(Critic al) 85 - 104 mmHg [facility] Comment:Critical value OK C C Lab. POC Base Excess -10.0(L) -3.0 - 3.0 mmol/L [facility] POC HCO3 16.7(L) 20.0 - 26.0 mmol/L [facility] POC Sodium 123(L) 135 - 145 mmol/L [facility] POC Potassium 4.0 3.5 - 5.0 mmol/L [facility] POC Ionized Ca 1.12(L) 1.15 - 1.33 mmol/L [facility] POC Hematocrit 27.0(L) 34.0 - 45.0 % [facility] POC Calc Hgb 9.2(L) 11.2 - 15.7 g/dL [facility] Comment:The calculation of h emoglobin from hematocrit assumes a normal MCHC. POC Bgas Loc CC Lab [facility] Blood 05/12/2023 8:10 AM EDT 05/13/2023 12:00 PM EDT Alirio Hudson MD CHEMISTRY ORDERABLE S Performing Organization Address City/[facility]/ZIP Co de Phone Number [facility] [place] [address] * (ABNORMAL) Lactate, whole blood, send to lab ([facility] (05/12/2023 7:00 AM EDT) Lactate WB 2.4(H) 0.5 - 2.2 mmol/L [facility] Blood 05/12/2023 7:00 AM EDT 05/12/2023 7:09 AM EDT Narrative Resulting Agency Comment Spec In Lab Radha Hollins MD CHEMISTRY ORDERABL ES Performing Organization Address City/[facility]/ZIP Co de Phone Number [facility] [place] [address] * (ABNORMAL) Comprehensive metabolic panel (non-fasting) (05/12/2023 6:00 AM EDT) Glucose Lvl 167 65 - 199 mg/dL [facility] Comment:Diabetes: >=200 mg/d L plus symptoms BUN 67(H) 8 - 18 mg/dL [facility] Creatinine 2.01(H) 0.70 - 1.20 mg/dL [facility] Sodium 131(L) 135 - 145 mmol/L [facility] [...] questions. Chloride 97(L) 98 - 107 mmol/L [facility] CO2 14(L) 22 - 31 mmol/L [facility] Anion Gap 20(H) 5 - 15 mmol/L [facility] Calcium 8.6 8.5 - 10.5 mg/dL [facility] Total Protein 6.3 6.1 - 8.0 g/dL [facility] Albumin 3.5 3.2 - 5.2 g/dL [facility] AST 1,435(H) 0 - 30 unit/L [facility] ALT 1,174(H) 0 - 30 unit/L [facility] Alk Phos 100 35 - 105 unit/L [facility] Total Bilirubin 0.9 0.2 - 1.3 mg/dL [facility] Estimated GFR 27(L) >=60 mL/min/1. 73 m?? [facility] Comment: This patient's estimated GFR [...] Lab Radha Hollins MD CHEMISTRY ORDERABL ES [facility] [place] [address] * (ABNORMAL) Coox2 (05/12/2023 5:08 AM EDT) pO2 Coox 24 mmHg [facility] Hgb Blood Gas 10.4(L) 11.7 - 15.5 g/dL [facility] O2HB Coox 30.7 % [facility] COHB Coox 0.3 % [facility] Comment: Nonsmokers: 0.5-1.5% COHB Smokers: Variable, but usually less than 10% Toxic: 20-30% COHB Lethal: Greater than 60% COHB METHB Coox 0.8 <=1.5 % [facility] Source Coox Mixed Venous [facility] Blood 05/12/2023 5:08 AM EDT 05/12/2023 5:08 AM EDT Radha Hollins MD CHEMISTRY ORDERABL ES [facility] [place] [address] * (ABNORMAL) Coox2 (05/12/2023 3:21 AM EDT) pO2 Coox 25 mmHg [facility] Hgb Blood Gas 10.8(L) 11.7 - 15.5 g/dL [facility] O2HB Coox 32.7 % [facility] COHB Coox 0.3 % [facility] Comment: Nonsmokers: 0.5-1.5% COHB Smokers: Variable, but usually less than 10% Toxic: 20-30% COHB Lethal: Greater than 60% COHB METHB Coox 0.7 <=1.5 % [facility] Source Coox Mixed Venous [facility] Blood 05/12/2023 3:21 AM EDT 05/12/2023 3:21 AM EDT Radha Hollins MD CHEMISTRY ORDERABL ES [facility] [place] [address] * (ABNORMAL) BLOOD GAS 2 ARTERIAL (05/12/2023 3:18 AM EDT) pH Art 7.34(L) 7.35 - 7.45 [facility] pCO2 Art 30(L) 35 - 45 mmHg [facility] pO2 Art 72(L) 85 - 104 mmHg [facility] HCO3 Art 16.0(L) 20.0 - 26.0 mmol/L [facility] BE Art -9.8(L) -3.0 - 3.0 mmol/L [facility] Hgb Blood Gas 11.0(L) 11.7 - 15.5 g/dL [facility] O2HB Art 89.8(L) 94.0 - 97.0 % [facility] COHB Art 0.3 % [facility] Comment: Nonsmokers: 0.5-1.5% COHB Smokers: Variable, but usually less than 10% Toxic: 20-30% COHB Lethal: Greater than 60% COHB METHB Art 0.7 <=1.5 % [facility] Na Whole Blood 131(L) 135 - 145 mmol/L [facility] K Whole Blood 4.2 3.5 - 5.0 mmol/L [facility] Comment: Please note: Patients with WBC >100,000 may have falsely elevated Potassium levels. Contact the Clinical Chemistry Laboratory if there are any questions. ICa Whole Blood 1.12(L) 1.15 - 1.33 mmol/L [facility] Comment: Note: ??Total bilirubin higher than 20 mg/dL may lead to falsely low ionized calcium. CL Whole Blood 100 98 - 107 mmol/L [facility] Gluc Whole Bld 160 65 - 199 mg/dL [facility] Comment:Diabetes: >=200 mg/d L plus symptoms. Lactate WB 2.7(H) 0.5 - 2.2 mmol/L [facility] Flow Art 5.0 LPM [facility] Blood 05/12/2023 3:18 AM EDT 05/12/2023 3:18 AM EDT Radha Hollins MD CHEMISTRY ORDERABL ES Performing Organization Address City/[facility] Co de Phone Number [facility] [place] [address] * (ABNORMAL) Coox2 (05/12/2023 1:14 AM EDT) pO2 Coox 28 mmHg [facility] Hgb Blood Gas 10.9(L) 11.7 - 15.5 g/dL [facility] O2HB Coox 37.3 % [facility] COHB Coox 0.3 % [facility] Comment: Nonsmokers: 0.5-1.5% COHB Smokers: Variable, but usually less than 10% Toxic: 20-30% COHB Lethal: Greater than 60% COHB METHB Coox 0.5 <=1.5 % [facility] Source Coox Mixed Venous [facility] Blood 05/12/2023 1:14 AM EDT 05/12/2023 1:14 AM EDT Radha Hollins MD CHEMISTRY ORDERABL ES Performing Organization Address City/[facility] Co de Phone Number [facility] [place] [address] * (ABNORMAL) BLOOD GAS 2 ARTERIAL (05/12/2023 1:06 AM EDT) pH Art 7.34(L) 7.35 - 7.45 [facility] pCO2 Art 30(L) 35 - 45 mmHg [facility] pO2 Art 81(L) 85 - 104 mmHg [facility] HCO3 Art 15.7(L) 20.0 - 26.0 mmol/L [facility] BE Art -10.1(L) -3.0 - 3.0 mmol/L [facility] Hgb Blood Gas 11.0(L) 11.7 - 15.5 g/dL [facility] O2HB Art 92.3(L) 94.0 - 97.0 % [facility] COHB Art 0.2 % [facility] Comment: Nonsmokers: 0.5-1.5% COHB Smokers: Variable, but usually less than 10% Toxic: 20-30% COHB Lethal: Greater than 60% COHB METHB Art 0.6 <=1.5 % [facility] Na Whole Blood 131(L) 135 - 145 mmol/L [facility] K Whole Blood 4.2 3.5 - 5.0 mmol/L [facility] Comment: Please note: Patients with WBC >100,000 may have falsely elevated Potassium levels. Contact the Clinical Chemistry Laboratory if there are any questions. ICa Whole Blood 1.13(L) 1.15 - 1.33 mmol/L [facility] Comment: Note: ??Total bilirubin higher than 20 mg/dL may lead to falsely low ionized calcium. CL Whole Blood 99 98 - 107 mmol/L [facility] Gluc Whole Bld 132 65 - 199 mg/dL [facility] Comment:Diabetes: >=200 mg/d L plus symptoms. Lactate WB 2.7(H) 0.5 - 2.2 mmol/L [facility] Flow Art 5.0 LPM [facility] Blood 05/12/2023 1:06 AM EDT 05/12/2023 1:06 AM EDT Radha Hollins MD CHEMISTRY ORDERABL ES [facility] [place] [address] * (ABNORMAL) Differential, Automated (05/12/2023 1:05 AM EDT) Neutrophils % 83.3 % [facility] Neutr Abs (ANC) 7.49(H) 1.70 - 6.10 x10(3)/[facility] Lymphocytes % 7.1 % [facility] Lymphocytes Abs 0.6(L) 0.9 - 3.2 x10(3)/[facility] Monocytes % 8.9 % [facility] Monocyte Abs 0.8 0.3 - 0.9 x10(3)/[facility] Eosinophils % 0.0 % [facility] Eosinophils Abs 0.0 0.0 - 0.4 x10(3)/[facility] Basophils % 0.1 % [facility] Basophils Abs 0.0 0.0 - 0.1 x10(3)/[facility] Immature Gran % 0.60 % [facility] Comment: Immature granulocytes(IG's)percentage and absolute count will include metamyelocytes, myelocytes, and promyelocytes. Blood smears from CBCs yielding IG's will be scanned manually for concordance. If this scan disagrees with the automated IG or if promyelocytes are noted, a manual differential will be performed. Amanda Gran Abs 0.05(H) 0.00 - 0.04 x10(3)/[facility] Blood 05/12/2023 1:05 AM EDT 05/12/2023 1:15 AM EDT Narrative Resulting Agency Comment Spec In Lab Gianni Fletcher MD HEMATOLOGY ORDERABLE S [facility] [place] [address] * (ABNORMAL) Hemogram (05/12/2023 1:05 AM EDT) WBC 9.0 4.0 - 9.5 x10(3)/[facility] LAB[facility]ATORY RBC 3.01(L) 4.00 - 5.21 x10(6)/[facility] Hemoglobin 9.8(L) 11.7 - 15.5 g/dL [facility] Hematocrit 28.7(L) 35.7 - 45.8 % [facility] MCV 95.3(H) 82.6 - 94.4 [facility]ORY MCH 32.6(H) 27.1 - 32.0 pg [facility] MCHC 34.1 31.7 - 35.0 g/dL [facility] Platelets 186 145 - 357 x10(3)/[facility] LABORATORY RDWSD 43.7 37.0 - 46.0 [facility] RDWCV 12.7 11.5 - 14.1 % [facility] MPV 10.3 7.6 - 12.9 [facility]ORY nRBC % Auto 0.0 % [facility] nRBC Abs Auto 0.000 0.000 - 0.000 x10(3)/[facility] Blood 05/12/2023 1:05 AM EDT 05/12/2023 1:15 AM EDT Narrative Resulting Agency Comment Spec In Lab Gianni Fletcher MD HEMATOLOGY ORDERABLE S [facility] [place] [address] * (ABNORMAL) Comprehensive metabolic panel (non-fasting) (05/12/2023 1:05 AM EDT) Glucose Lvl 141 65 - 199 mg/dL [facility] Comment:Diabetes: >=200 mg/d L plus symptoms BUN 63(H) 8 - 18 mg/dL [facility] Creatinine 1.86(H) 0.70 - 1.20 mg/dL [facility] Sodium 131(L) 135 - 145 mmol/L [facility] Potassium 4.4 3.5 - 5.0 mmol/L [facility] Comment: Please note: ??Patients with WBC >100,000 may have falsely elevated Potassium levels. ??For accurate Potassium quantification in these patients send serum separator tube (gold top) for subsequent determinations. ??Contact the Clinical Chemistry Laboratory if there are any questions. Chloride 96(L) 98 - 107 mmol/L [facility] CO2 14(L) 22 - 31 mmol/L [facility] Anion Gap 21(H) 5 - 15 mmol/L [facility] Calcium 9.0 8.5 - 10.5 mg/dL [facility] Total Protein 6.6 6.1 - 8.0 g/dL [facility] Albumin 3.9 3.2 - 5.2 g/dL [facility] AST 1,227(H) 0 - 30 unit/L [facility] ALT 1,097(H) 0 - 30 unit/L [facility] Alk Phos 108(H) 35 - 105 unit/L [facility] Total Bilirubin 1.0 0.2 - 1.3 mg/dL [facility] Estimated GFR 29(L) >=60 mL/min/1. 73 m?? [facility] Comment: This patient's estimated GFR [...] Hollins MD CHEMISTRY ORDERABL [place] [address] * XR Chest One View (05/12/2023 1:00 [...] who have questions please contact the health special needs child caregiver that requested your imaging first. ? Electronically signed by: Will Rowe MD, [facility] ([phone]), at 05/12/2023 3:16 AM Narrative 05/12/2023 3:16 [...] patients who have questions please contactthe health special needs child caregiver that requested your imaging first. Radha Hollins MD IMG DX ORDERABLES * (ABNORMAL) Coox2 (05/12/2023 12:30 AM EDT) pO2 Coox 22 mmHg [facility] Hgb Blood Gas 10.9(L) 11.7 - 15.5 g/dL [facility] O2HB Coox 25.1 % [facility] COHB Coox 0.3 % [facility] Comment: Nonsmokers: 0.5-1.5% COHB Smokers: Variable, but usually less than 10% Toxic: 20-30% COHB Lethal: Greater than 60% COHB METHB Coox 1.4 <=1.5 % [facility] Source Coox Mixed Venous [facility] Blood 05/12/2023 12:3 0 AM EDT 05/12/2023 12:30 AM EDT Radha Hollins MD CHEMISTRY ORDERABL ES [facility] [place] [address] * XR Chest One View (05/11/2023 11:45 [...] who have questions please contact the health special needs child caregiver that requested your imaging first. ? Narrative [...] patients who have questions please contactthe health special needs child caregiver that requested your imaging first. Radha Hollins MD IMG DX ORDERABLES * (ABNORMAL) Lactate, whole blood, send to lab ([facility] [place] (05/11/2023 7:40 PM EDT) Lactate WB 4.8(Critic al) 0.5 - 2.2 mmol/L [facility] Comment:Called by: [facility], Read back by: Magdalena Baires, Date/Time:05/11/23 19:54. Blood 05/11/2023 7:40 PM EDT 05/11/2023 7:49 PM EDT Narrative Resulting Agency Comment Spec In Lab Radha Hollins MD CHEMISTRY ORDERABL ES [facility] [place] [address] * Urine culture (05/11/2023 7:22 PM EDT) Pathologist [facility] [place] Urine Culture 50,000-99,000 cfu/ml Normal mucosal herman Susceptibilit y testing not routinely performed for Coagulase Negative Staphylococcu s species and other Gram Positive organisms from urine. [facility] Clean Catch Urine 05/11/2023 7:22 PM EDT 05/11/2023 8:50 PM EDT Narrative Resulting Agency Comment Spec In Lab Brody Kaplan [place] MICROBIOLOGY - GENE RAL ORDERABLES [facility] [place] [address] * (ABNORMAL) Urinalysis Microscopic Exam (05/11/2023 7:22 PM EDT) [facility] RBC UA 2 0 - 4 /HPF [facility] WBC UA >100(H) 0 - 5 /HPF [facility] Bacteria UA Occasional (A) None /HPF [facility] Squam Epith UA 5(H) <=4 /HPF [facility] Hyaline Cast UA 3(H) 0 - 2 /LPF [facility] Clean Catch Urine 05/11/2023 7:22 PM EDT 05/11/2023 7:31 PM EDT Narrative Resulting Agency Comment Spec In Lab Brody Kaplan [place] URINE ORDERABLES [facility] [place] [address] * (ABNORMAL) Urinalysis with reflex Culture (05/11/2023 7:22 PM EDT) Pathologist [facility] [place] Glucose UA Negative Negative mg/dL [facility] Protein UA Trace(A) Negative mg/dL [facility] Bilirubin UA Negative Negative mg/dL [facility] Comment: Clinical correlation required for positive Urine Bilirubin results as false positive may occur with some drugs and drug related products. If a false positive is suspected a serum total bilirubin should be considered if clinically indicated. Urobilinogen UA Normal Normal mg/dL [facility] pH UA 5.0 5.0 - 8.0 [facility] Blood UA Trace(A) Negative mg/dL [facility] Ketones UA Negative Negative mg/dL [facility] Nitrite UA Negative Negative [facility] Leukocytes UA Moderate(A) Negative [facility] Appearance UA Cloudy(A) Clear [facility] Spec [place] UA >=1.030(A) 1.005 - 1.030 [facility] Color UA Yellow Yellow [facility] Culture Reflexed Yes [facility] Clean Catch Urine 05/11/2023 7:22 PM EDT 05/11/2023 7:31 PM EDT Narrative Resulting Agency Comment Spec In Lab Brody Kaplan APRN URINE ORDERABLES Performing Organization Address City/[facility]/ZIP Co de Phone Number [facility] [place] [address] * (ABNORMAL) pro-Brain Natriuretic Peptide (05/11/2023 7:11 PM EDT) ProBNP >35,000(H) <=124 pg/mL [facility] Blood 05/11/2023 7:11 PM EDT 05/11/2023 7:26 PM EDT Narrative Resulting Agency Comment Spec In Lab Radha Hollins MD CHEMISTRY ORDERABL ES Performing Organization Address City/[facility]/ZIP Co de Phone Number [facility] [place] [address] * (ABNORMAL) Lactate, whole blood, send to lab ([facility] [place] (05/11/2023 2:47 PM EDT) Lactate WB 2.9(H) 0.5 - 2.2 mmol/L [facility] Blood 05/11/2023 2:47 PM EDT 05/11/2023 2:53 PM EDT Narrative Resulting Agency Comment Spec In Lab Juan Luis Gonzalez MD CHEMISTRY ORDERABLES [facility] [place] [address] * (ABNORMAL) CT Angiogram Abdomen & Pelvis [...] who have questions please contact the health special needs child caregiver that requested your imaging first. ? Narrative [...] who have questions please contact the health special needs child caregiver that requested your imaging first. ? Electronically signed by: Cullen Narayanan MD, [facility] ([phone]), at 05/11/2023 4:37 PM Narrative 05/11/2023 4:37 [...] 610 mm2 Circumference: 88 mm Calcification: Mild Sudllez-ri-feridpyz height: Left: 6.2 mm Right: 5.8 mm THORACIC AORTA Description: Normal course and caliber. ??Mild diffuse atherosclerotic changes. No acute aortopathy noted. Body Component Engineer dimensions: Aortic root: 27.6 mm Max ascending [...] 610 mm2 Circumference: 88 mm Calcification: Mild Urattsc-yf-rvwcdupg height: Left: 6.2 mm Right: 5.8 mm THORACIC AORTA Description: Normal course and caliber. Mild diffuse atheroscleroticchanges. No acute aortopathy noted. Body Component Engineer dimensions: Aortic root: 27.6 mm Max ascending [...] patients who have questions please contactthe health special needs child caregiver that requested your imaging first. Electronically signed by: Cullen Narayanan MD, [facility]([phone]), at 05/11/2023 4:37 PM Antelmo Sharma MD IMG CT ORDERABLES * (ABNORMAL) Lactate, whole blood, send to lab ([facility] [place] (05/11/2023 9:29 AM EDT) Pathologist [facility] [place] Lactate WB 3.1(H) 0.5 - 2.2 mmol/L [facility] Blood 05/11/2023 9:29 AM EDT 05/11/2023 9:38 AM EDT Narrative Resulting Agency Comment Spec In Lab Juan Luis Gonzalez MD CHEMISTRY ORDERABLES Performing Organization Address City/State/[facility] Co de Phone Number [facility] [place] [phone] * (ABNORMAL) Differential, Automated (05/11/2023 4:42 AM EDT) [facility] Neutrophils % 78.1 % [facility] Neutr Abs (ANC) 5.46 1.70 - 6.10 x10(3)/mc L [facility] Lymphocytes % 10.6 % [facility] Lymphocytes Abs 0.7(L) 0.9 - 3.2 x10(3)/mc L [facility] Monocytes % 9.6 % [facility] Monocyte Abs 0.7 0.3 - 0.9 x10(3)/mc L [facility] Eosinophils % 0.0 % [facility] Eosinophils Abs 0.0 0.0 - 0.4 x10(3)/mc L [facility] Basophils % 0.4 % [facility] Basophils Abs 0.0 0.0 - 0.1 x10(3)/mc L [facility] Immature Gran % 1.30 % [facility] Comment: Immature granulocytes(IG's)percentage and absolute count will include metamyelocytes, myelocytes, and promyelocytes. Blood smears from CBCs yielding IG's will be scanned manually for concordance. If this scan disagrees with the automated IG or if promyelocytes are noted, a manual differential will be performed. Amanda Gran Abs 0.09(H) 0.00 - 0.04 x10(3)/ L [facility] Blood 05/11/2023 4:42 AM EDT 05/11/2023 4:49 AM EDT Narrative Resulting Agency Comment Spec In Lab Klaudia Reid MD HEMATOLOGY OR DERABLES [facility] [place] [address] * (ABNORMAL) Hemogram (05/11/2023 4:42 AM EDT) WBC 7.0 4.0 - 9.5 x10(3)/[facility] RBC 3.44(L) 4.00 - 5.21 x10(6)/[facility] Hemoglobin 11.1(L) 11.7 - 15.5 g/dL [facility] Hematocrit 32.7(L) 35.7 - 45.8 % [facility] MCV 95.1(H) 82.6 - 94.4 fL [facility] MCH 32.3(H) 27.1 - 32.0 pg [facility] MCHC 33.9 31.7 - 35.0 g/dL [facility] Platelets 165 145 - 357 x10(3)/[facility] RDWSD 43.1 37.0 - 46.0 [facility] RDWCV 12.7 11.5 - 14.1 % [facility] MPV 10.1 7.6 - 12.9 [facility] nRBC % Auto 0.0 % [facility] nRBC Abs Auto 0.000 0.000 - 0.000 x10(3)/mcL [facility] Blood 05/11/2023 4:42 AM EDT 05/11/2023 4:49 AM EDT Narrative Resulting Agency Comment Spec In Lab Klaudia Reid MD HEMATOLOGY OR DERABLES Performing Organization Address [facility] Co de Phone Number [facility] [place] [address] * Heparin (unfractionated) Level (05/11/2023 4:42 AM EDT) Heparin UFH Level 0.46 IU/mL [facility] Comment: Heparin (anti-Xa) levels should [...] MD HEMATOLOGY ORDERAB LES Performing Organization Address [facility] Co de Phone Number [facility] [place] [address] * (ABNORMAL) Comprehensive metabolic panel (non-fasting) (05/11/2023 4:42 AM EDT) Glucose Lvl 143 65 - 199 mg/dL [facility] Comment:Diabetes: >=200 mg/d L plus symptoms BUN 42(H) 8 - 18 mg/dL [facility] Creatinine 1.24(H) 0.70 - 1.20 mg/dL [facility] Sodium 134(L) 135 - 145 mmol/L [facility] Potassium 4.6 3.5 - 5.0 mmol/L [facility] Comment: Please note: ??Patients with WBC >100,000 may have falsely elevated Potassium levels. ??For accurate Potassium quantification in these patients send serum separator tube (gold top) for subsequent determinations. ??Contact the Clinical Chemistry Laboratory if there are any questions. Chloride 99 98 - 107 mmol/L [facility] CO2 14(L) 22 - 31 mmol/L [facility] Anion Gap 21(H) 5 - 15 mmol/L [facility] Calcium 9.6 8.5 - 10.5 mg/dL [facility] Total Protein 7.2 6.1 - 8.0 g/dL [facility] Albumin 3.7 3.2 - 5.2 g/dL [facility] AST 144(H) 0 - 30 unit/L [facility] Comment:result rechecked-ssc ALT 130(H) 0 - 30 unit/L [facility] Comment:result rechecked-ssc Alk Phos 72 35 - 105 unit/L [facility] Total Bilirubin 0.8 0.2 - 1.3 mg/dL [facility] Estimated GFR 48(L) >=60 mL/min/1. 73 m?? [facility] Comment: This patient's estimated GFR [...] MD CHEMISTRY ORDERABL ES Performing Organization Address [facility] Co de Phone Number [facility] [place] [address] * EKG 12 Lead (05/10/2023 1:16 PM EDT) Ventricular rate 118 BPM MUSE SYSTEM Atrial Rate 118 BPM MUSE SYSTEM P-R Interval 152 ms MUSE SYSTEM QRS Duration 104 ms MUSE SYSTEM Q-T Interval 316 ms MUSE SYSTEM QTC Calculated (Bezet) 442 ms MUSE SYSTEM Calculated P Almond 29 degrees MUSE SYSTEM Calculated R Almond 18 degrees MUSE SYSTEM Calculated T Almond -173 degrees MUSE SYSTEM INTERPRETATION Sinus tachycardia [...] Anterior leads Confirmed by MD Villareal Danette ([id number]) on 05/10/2023 8:47:46 PM MUSE SYSTEM 05/10/2023 1:16 PM EDT 05/10/2023 8:47 PM EDT Juan Luis Gonzalez MD ECG ORDERABLES Performing Organization Address [facility] Co de Phone Number MUSE SYSTEM * Lactate, whole blood, send to lab ([facility] [place] (05/10/2023 11:52 AM EDT) Lactate WB 1.8 0.5 - 2.2 mmol/L [facility] Blood 05/10/2023 11:5 2 AM EDT 05/10/2023 12:13 PM EDT Narrative Resulting Agency Comment Spec In Lab Juan Luis Gonzalez MD CHEMISTRY ORDERABLES [facility] [place] [place] [address] * XR Chest One View (05/10/2023 11:16 [...] who have questions please contact the health special needs child caregiver that requested your imaging first. ? Electronically signed by: ALIX RUVALCABA MD, [facility] ([phone]), at 05/10/2023 1:25 PM Narrative 05/10/2023 1:25 [...] patients who have questions please contactthe health special needs child caregiver that requested your imaging first. Electronically signed by: ALIX RUVALCABA MD, [facility]([phone]), at 05/10/2023 1:25 PM Juan Luis Gonzalez MD IMG DX ORDERABLES * EKG 12 Lead (05/10/2023 7:59 AM EDT) Ventricular rate 115 BPM MUSE SYSTEM Atrial Rate 115 BPM MUSE SYSTEM P-R Interval 142 ms MUSE SYSTEM QRS Duration 102 ms MUSE SYSTEM Q-T Interval 322 ms MUSE SYSTEM QTC Calculated (Bezet) 445 ms MUSE SYSTEM Calculated P Almond 36 degrees MUSE SYSTEM Calculated R Almond 28 degrees MUSE SYSTEM Calculated T Almond -119 degrees MUSE SYSTEM INTERPRETATION Sinus tachycardia with frequent Premature ventricular complexes and Fusion complexes ST & T wave abnormality, consider lateral ischemia Abnormal ECG When compared with ECG of 08-MAY-2023 15:51, No significant change was found I personally reviewed the tracing and edited the fellows interpretation Confirmed by fellow MD Anitha, Carissa ([id number]) on 05/11/2023 6:19:54 AM Confirmed by MD Ugalde Hannah ([id number]) on 05/11/2023 3:18:56 PM MUSE SYSTEM 05/10/2023 7:59 AM EDT 05/11/2023 3:18 PM EDT Radha Hollins MD ECG ORDERABLES MUSE SYSTEM * (ABNORMAL) Differential, Automated (05/10/2023 2:28 AM EDT) Neutrophils % 77.1 % [facility] Neutr Abs (ANC) 4.01 1.70 - 6.10 x10(3)/[facility] Lymphocytes % 14.0 % [facility] Lymphocytes Abs 0.7(L) 0.9 - 3.2 x10(3)/[facility] Monocytes % 7.7 % [facility] Monocyte Abs 0.4 0.3 - 0.9 x10(3)/[facility] Eosinophils % 0.4 % [facility] Eosinophils Abs 0.0 0.0 - 0.4 x10(3)/[facility] Basophils % 0.4 % [facility] Basophils Abs 0.0 0.0 - 0.1 x10(3)/[facility] Immature Gran % 0.40 % [facility] Comment: Immature granulocytes(IG's)percentage and absolute count will include metamyelocytes, myelocytes, and promyelocytes. Blood smears from CBCs yielding IG's will be scanned manually for concordance. If this scan disagrees with the automated IG or if promyelocytes are noted, a manual differential will be performed. Amanda Gran Abs 0.02 0.00 - 0.04 x10(3)/[facility] Blood 05/10/2023 2:28 AM EDT 05/10/2023 2:57 AM EDT Narrative Resulting Agency Comment Spec In Lab Klaudia Reid MD HEMATOLOGY OR DERABLES [facility] [place] [address] * (ABNORMAL) Hemogram (05/10/2023 2:28 AM EDT) WBC 5.2 4.0 - 9.5 x10(3)/[facility] RBC 3.11(L) 4.00 - 5.21 x10(6)/[facility] Hemoglobin 10.2(L) 11.7 - 15.5 g/dL [facility] Hematocrit 30.2(L) 35.7 - 45.8 % [facility] MCV 97.1(H) 82.6 - 94.4 fL [facility] MCH 32.8(H) 27.1 - 32.0 pg [facility] MCHC 33.8 31.7 - 35.0 g/dL [facility] Platelets 151 145 - 357 x10(3)/[facility] RDWSD 44.9 37.0 - 46.0 [facility] RDWCV 12.8 11.5 - 14.1 % [facility] MPV 9.8 7.6 - 12.9 [facility] nRBC % Auto 0.0 % [facility] nRBC Abs Auto 0.000 0.000 - 0.000 x10(3)/[facility] Blood 05/10/2023 2:28 AM EDT 05/10/2023 2:57 AM EDT Narrative Resulting Agency Comment Spec In Lab Klaudia Reid MD HEMATOLOGY OR DERABLES Performing Organization Address City/State/[facility] Co de Phone Number [facility] [place] [address] * (ABNORMAL) Comprehensive metabolic panel (non-fasting) (05/10/2023 2:28 AM EDT) Glucose Lvl 100 65 - 199 mg/dL [facility] Comment:Diabetes: >=200 mg/d L plus symptoms BUN 30(H) 8 - 18 mg/dL [facility] Creatinine 0.90 0.70 - 1.20 mg/dL [facility] Sodium 134(L) 135 - 145 mmol/L [facility] Potassium 4.1 3.5 - 5.0 mmol/L [facility] Comment: Please note: ??Patients with WBC >100,000 may have falsely elevated Potassium levels. ??For accurate Potassium quantification in these patients send serum separator tube (gold top) for subsequent determinations. ??Contact the Clinical Chemistry Laboratory if there are any questions. Chloride 102 98 - 107 mmol/L [facility] CO2 20(L) 22 - 31 mmol/L [facility] Anion Gap 12 5 - 15 mmol/L [facility] Calcium 9.3 8.5 - 10.5 mg/dL [facility] Total Protein 6.4 6.1 - 8.0 g/dL [facility] Albumin 3.7 3.2 - 5.2 g/dL [facility] AST 24 0 - 30 unit/L [facility] ALT 14 0 - 30 unit/L [facility] Alk Phos 70 35 - 105 unit/L [facility] Total Bilirubin 0.5 0.2 - 1.3 mg/dL [facility] Estimated GFR 70 >=60 mL/min/1. 73 m?? [facility] Comment: This patient's estimated GFR [...] Lab Radha Hollins MD CHEMISTRY ORDERABL ES [facility] [place] [address] * Heparin (unfractionated) Level (05/10/2023 2:28 AM EDT) [facility] Heparin UFH Level 0.37 IU/mL [facility] Comment: Heparin (anti-Xa) levels should [...] Lab Radha Hollins MD HEMATOLOGY ORDERAB LES [facility] [place] [address] * (ABNORMAL) Differential, Automated (05/09/2023 4:00 AM EDT) [facility] Neutrophils % 81.7 % [facility] Neutr Abs (ANC) 5.26 1.70 - 6.10 x10(3)/mc L [facility] Lymphocytes % 10.7 % [facility] Lymphocytes Abs 0.7(L) 0.9 - 3.2 x10(3)/mc L [facility] Monocytes % 6.5 % [facility] Monocyte Abs 0.4 0.3 - 0.9 x10(3)/mc L [facility] Eosinophils % 0.5 % [facility] Eosinophils Abs 0.0 0.0 - 0.4 x10(3)/mc L [facility] Basophils % 0.3 % [facility] Basophils Abs 0.0 0.0 - 0.1 x10(3)/[facility] Immature Gran % 0.30 % [facility] Comment: Immature granulocytes(IG's)percentage and absolute count will include metamyelocytes, myelocytes, and promyelocytes. Blood smears from CBCs yielding IG's will be scanned manually for concordance. If this scan disagrees with the automated IG or if promyelocytes are noted, a manual differential will be performed. Amanda Gran Abs 0.02 0.00 - 0.04 x10(3)/[facility] Blood 05/09/2023 4:00 AM EDT 05/09/2023 4:19 AM EDT Narrative Resulting Agency Comment Spec In Lab Klaudia Reid MD HEMATOLOGY OR DERABLES Performing Organization Address City/State/[facility] Co de Phone Number [facility] [place] [address] * (ABNORMAL) Hemogram (05/09/2023 4:00 AM EDT) WBC 6.4 4.0 - 9.5 x10(3)/[facility] RBC 3.15(L) 4.00 - 5.21 x10(6)/[facility] Hemoglobin 10.2(L) 11.7 - 15.5 g/dL [facility] Hematocrit 30.3(L) 35.7 - 45.8 % [facility] MCV 96.2(H) 82.6 - 94.4 fL [facility] MCH 32.4(H) 27.1 - 32.0 pg [facility] MCHC 33.7 31.7 - 35.0 g/dL [facility] Platelets 151 145 - 357 x10(3)/[facility] RDWSD 44.7 37.0 - 46.0 fL [facility] RDWCV 12.8 11.5 - 14.1 % [facility] MPV 9.4 7.6 - 12.9 fL [facility] nRBC % Auto 0.0 % [facility] nRBC Abs Auto 0.000 0.000 - 0.000 x10(3)/mcL [facility] Blood 05/09/2023 4:00 AM EDT 05/09/2023 4:19 AM EDT Narrative Resulting Agency Comment Spec In Lab Klaudia Reid MD HEMATOLOGY OR DERABLES Performing Organization Address [facility]/[place] [address] * Heparin (unfractionated) Level (05/09/2023 4:00 AM EDT) Heparin UFH Level 0.47 IU/mL [facility] Comment: Heparin (anti-Xa) levels should [...] MD HEMATOLOGY ORDERAB LES Performing Organization Address [facility]/ZIP Co de Phone Number [facility] [place] [address] * (ABNORMAL) Comprehensive metabolic panel (non-fasting) (05/09/2023 4:00 AM EDT) Glucose Lvl 108 65 - 199 mg/dL [facility] Comment:Diabetes: >=200 mg/d L plus symptoms BUN 31(H) 8 - 18 mg/dL [facility] Creatinine 1.03 0.70 - 1.20 mg/dL [facility] Sodium 137 135 - 145 mmol/L [facility] Potassium 4.4 3.5 - 5.0 mmol/L [facility] Comment: Please note: ??Patients with WBC >100,000 may have falsely elevated Potassium levels. ??For accurate Potassium quantification in these patients send serum separator tube (gold top) for subsequent determinations. ??Contact the Clinical Chemistry Laboratory if there are any questions. Chloride 102 98 - 107 mmol/L [facility] CO2 20(L) 22 - 31 mmol/L [facility] Anion Gap 15 5 - 15 mmol/L [facility] Calcium 9.3 8.5 - 10.5 mg/dL [facility] Total Protein 6.6 6.1 - 8.0 g/dL [facility] Albumin 3.8 3.2 - 5.2 g/dL [facility] AST 32(H) 0 - 30 unit/L [facility] ALT 18 0 - 30 unit/L [facility] Alk Phos 78 35 - 105 unit/L [facility] Total Bilirubin 0.5 0.2 - 1.3 mg/dL [facility] Estimated GFR 60 >=60 mL/min/1. 73 m?? [facility] Comment: This patient's estimated GFR [...] MD CHEMISTRY ORDERABL ES Performing Organization Address City/[facility]/ZIP Co de Phone Number [facility] [place] [address] * (ABNORMAL) pro-Brain Natriuretic Peptide (05/08/2023 4:00 PM EDT) ProBNP 25,503(H) <=124 pg/mL [facility] Blood Venous Draw / Unknown 05/08/2023 4:00 PM EDT 05/08/2023 4:25 PM EDT Narrative Resulting Agency Comment Spec In Lab Juan Luis Gonzalez MD CHEMISTRY ORDERABLES Performing Organization Address City/[facility]/ZIP Co de Phone Number [facility] [place] [address] * Magnesium (05/08/2023 4:00 PM EDT) Magnesium 0.82 0.69 - 1.07 mmol/L [facility] Blood 05/08/2023 4:00 PM EDT 05/08/2023 4:06 PM EDT Narrative Resulting Agency Comment Spec In Lab Enrique Chua MD CHEMISTRY ORDERABLES Performing Organization Address City/[facility]/ZIP Co de Phone Number [facility] [place] [address] * Potassium (05/08/2023 4:00 PM EDT) Potassium 3.9 3.5 - 5.0 mmol/L [facility] MD CHEMISTRY ORDERABL ES Performing Organization Address [facility] Co de Phone Number [facility] [place] [address] * Heparin (unfractionated) Level (05/08/2023 4:00 PM EDT) Pathologist [facility] Heparin UFH Level 0.43 IU/mL [facility] Comment: Heparin (anti-Xa) levels should [...] MD HEMATOLOGY ORDERAB LES Performing Organization Address [facility]/ZIP Co de Phone Number [facility] [place] [address] * EKG 12 Lead (05/08/2023 3:51 PM EDT) Ventricular rate 98 BPM MUSE SYSTEM Atrial Rate 98 BPM MUSE SYSTEM P-R Interval 150 ms MUSE SYSTEM QRS Duration 102 ms MUSE SYSTEM Q-T Interval 358 ms MUSE SYSTEM QTC Calculated (Bezet) 457 ms MUSE SYSTEM Calculated P Almond 38 degrees MUSE SYSTEM Calculated R Almond 48 degrees MUSE SYSTEM Calculated T Almond -112 degrees MUSE SYSTEM INTERPRETATION Sinus rhythm with frequent and consecutive Premature ventricular and fusion complexes Septal infarct , age undetermined ST & T wave abnormality, consider anterolateral ischemia Abnormal ECG When compared with ECG of 09-NOV-2022 11:17, T wave inversion now evident in Anterolateral leads Confirmed by MD Harshil, Enrique Bell ([id number]) on 05/10/2023 8:11:46 AM MUSE SYSTEM 05/08/2023 3:51 PM EDT 05/10/2023 8:11 AM EDT Radha Hollins MD ECG ORDERABLES MUSE SYSTEM * (ABNORMAL) Differential, Automated (05/08/2023 11:38 AM EDT) Neutrophils % 71.3 % [facility] Neutr Abs (ANC) 2.91 1.70 - 6.10 x10(3)/mc L [facility] Lymphocytes % 19.1 % [facility] Lymphocytes Abs 0.8(L) 0.9 - 3.2 x10(3)/mc L [facility] Monocytes % 9.0 % [facility] Monocyte Abs 0.4 0.3 - 0.9 x10(3)/mc L [facility] Eosinophils % 0.2 % [facility] Eosinophils Abs 0.0 0.0 - 0.4 x10(3)/mc L [facility] Basophils % 0.2 % [facility] Basophils Abs 0.0 0.0 - 0.1 x10(3)/mc L [facility] Immature Gran % 0.20 % [facility] Comment: Immature granulocytes(IG's)percentage and absolute count will include metamyelocytes, myelocytes, and promyelocytes. Blood smears from CBCs yielding IG's will be scanned manually for concordance. If this scan disagrees with the automated IG or if promyelocytes are noted, a manual differential will be performed. Amanda Gran Abs 0.01 0.00 - 0.04 x10(3)/mc L [facility] Blood 05/08/2023 11:3 8 AM EDT 05/08/2023 11:44 AM EDT Narrative Resulting Agency Comment Spec In Lab Lincoln Sal MD HEMATOLOGY ORDERA BLES [facility] [place] [address] * (ABNORMAL) Hemogram (05/08/2023 11:38 AM EDT) WBC 4.1 4.0 - 9.5 x10(3)/[facility] RBC 3.05(L) 4.00 - 5.21 x10(6)/[facility] Hemoglobin 10.2(L) 11.7 - 15.5 g/dL [facility] Hematocrit 29.6(L) 35.7 - 45.8 % [facility] MCV 97.0(H) 82.6 - 94.4 fL [facility] MCH 33.4(H) 27.1 - 32.0 pg [facility] MCHC 34.5 31.7 - 35.0 g/dL [facility] Platelets 136(L) 145 - 357 x10(3)/[facility] RDWSD 44.3 37.0 - 46.0 [facility] RDWCV 12.6 11.5 - 14.1 % [facility] MPV 9.4 7.6 - 12.9 [facility] nRBC % Auto 0.0 % [facility] nRBC Abs Auto 0.000 0.000 - 0.000 x10(3)/[facility] Blood 05/08/2023 11:3 8 AM EDT 05/08/2023 11:44 AM EDT Narrative Resulting Agency Comment Spec In Lab Lincoln Sal MD HEMATOLOGY ORDERA BLES Performing Organization Address [facility] Co de Phone Number [facility] [place] [address] * TSH (05/08/2023 11:38 AM EDT) TSH 1.27 0.27 - 4.20 mcIU/mL [facility] Comment: Reference Interval (mcIU/mL): Females: ??First Trimester: 0.23-3.88 ??Second Trimester: 0.22-3.90 ??Third Trimester: 0.44-4.66 Blood 05/08/2023 11:3 8 AM EDT 05/08/2023 11:44 AM EDT Narrative Resulting Agency Comment Spec In Lab Enrique Chua MD CHEMISTRY ORDERABLES Performing Organization Address [facility]/RUST de Phone Number [facility] [place] [address] * (ABNORMAL) Phosphorus (05/08/2023 11:38 AM EDT) Phosphorus 4.7(H) 2.5 - 4.5 mg/dL [facility] Blood 05/08/2023 11:3 8 AM EDT 05/08/2023 11:44 AM EDT Narrative Resulting Agency Comment Spec In Lab Enrique Chua MD CHEMISTRY ORDERABLES Performing Organization Address [facility] Co de Phone Number [facility] [place] [address] * Magnesium (05/08/2023 11:38 AM EDT) Magnesium 0.76 0.69 - 1.07 mmol/L [facility] Blood 05/08/2023 11:3 8 AM EDT 05/08/2023 11:44 AM EDT Narrative Resulting Agency Comment Spec In Lab Enrique Chua MD CHEMISTRY ORDERABLES [facility] [place] [address] * (ABNORMAL) Basic Metabolic Panel (non-fasting) (05/08/2023 11:38 AM EDT) Glucose Lvl 97 65 - 199 mg/dL [facility] Comment:Diabetes: >=200 mg/d L plus symptoms BUN 27(H) 8 - 18 mg/dL [facility] Creatinine 1.02 0.70 - 1.20 mg/dL [facility] Sodium 139 135 - 145 mmol/L [facility] Potassium 4.2 3.5 - 5.0 mmol/L [facility] Comment: Please note: ??Patients with WBC >100,000 may have falsely elevated Potassium levels. ??For accurate Potassium quantification in these patients send serum separator tube (gold top) for subsequent determinations. ??Contact the Clinical Chemistry Laboratory if there are any questions. Chloride 105 98 - 107 mmol/L [facility] CO2 20(L) 22 - 31 mmol/L [facility] Anion Gap 14 5 - 15 mmol/L [facility] Calcium 9.4 8.5 - 10.5 mg/dL [facility] Estimated GFR 60 >=60 mL/min/1. 73 m?? [facility] Comment: This patient's estimated GFR [...] Enrique Chua MD CHEMISTRY ORDERABLES [facility] [place] [address] * ECHO COMPLETE (05/08/2023 11:02 AM EDT) EF 25 HEARTLAB SYSTEM Anatomical Region Laterality Modality Cardiac Other 05/08/2023 10:0 3 AM EDT Narrative 05/08/2023 11:51 AM EDT ? Echocardiogram Report Name: PURNIMA THACKER ?Study Date: 05/08/2023 10:03 AMBP: 92/64 mmHg ? Patient Location: [facility]^CV29^A : 1955 ? Height: 155 cm ? Account: [id number] Age: 67 yrs ? Weight: 78 kg Gender: Female ?BSA: 1.8 m2 Ordering Physician: ENRIQUE CHUA Referring Physician: MARIO ALBERTO CHIN Performed By: CHUCKIE Canchola Reason For Study: SAVR Stenosis Exam Location: [facility]. Interpretation Summary -Left ventricle is [...] worsening stenosis. Mitral regurgitation is similar. Procedure Complete-[id number]. Satisfactory quality. There is normal sinus rhythm. [...] Study Date: 0:03 AMBP: 92/64 mmHg Patient Location:[facility]^CV29^A : 1955 Height: 155 cm Account: [id number] Age: 67 yrs Weight: 78 kg Gender: Female BSA: 1.8 m2 Ordering Physician: ENRIQUE CHUA Referring Physician: MARIO ALBERTO CHIN Performed By: CHUCKIE Canchola Reason For Study: SAVR Stenosis Exam Location: [facility]. Interpretation Summary -Left ventricle is [...] suggestsworsening stenosis. Mitral regurgitation is similar. Procedure Complete-[id number]. Satisfactory quality. There is normal sinus rhythm. 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
--- OUTSIDE RECORDS SUMMARY | 2024-02-22 14:14 | XMS_ITS | Encounter Summary ---
[place] [address] Care Team Providers Care Health And Safety Instructor Name Role Phone Deborah Quiroga Cornelius OSBORN Primary Care Provider [phone] Encounter Details Date Type Department Care Team (Late st Contact Info) Description 11/11/2020 Refill Dermatology at [address] [phone] Taylor Malone, TOP LOADER Social History Tobacco Use Types Packs/Day Years [...] PM EDT Office Visit Dermatology at [address] [address] Marek Bonilla MD [address] [place] [address] [place] [address] 06/05/2024 11:30 AM EST Office [place] [address] Magdalena Peralta MD [facility] [place] [address] documented as of this encounter Visit Diagnoses Not on filedocumented in this encounter Care Teams Health And Safety Instructor Relationship Specialty Start Date End Date Deborah Quiroga APRN PCP - General Family Medicine 03/24/16 02/04/23 documented as of this encounter
--- OUTSIDE RECORDS SUMMARY | 2024-02-22 14:14 | XMS_ITS | Encounter Summary ---
Author Organization [facility] [place] [address] Care Team Providers Care Wire Stitcher Name Role Phone Deborah Quiroga ANURAG Primary Care Provider [phone] Encounter Details Date Type Department Care Team (Late Contact Info) Description 02/07/2020 Telephone Hematology [place] [phone] Ellen Rios RN Social History Tobacco Use [...] 02/07/2020 12:59 PM EDT Message received from receptionist secretary: Injection/Infusion Referral Services to be provided for pt are: CBC only at [facility]- Pt will go by 02/27 Orders faxed to [phone]). Spoke with pt. She will call [facility] directly to schedule a time that works for her. documented in this encounter Plan of Treatment Upcoming Encounters Date Type Department Care Team (Late Contact Info) Description 02/22/2024 4:15 PM EDT Office Visit Dermatology at [address] [address] Marek Bonilla MD [address] [place] [address] 06/05/2024 11:30 AM EST Office [place] [address] Magdalena Peralta MD [facility] [place] [address] documented as of this encounter Visit Diagnoses Not on filedocumented in this encounter Care Teams Wire Stitcher Relationship Specialty Start Date End Date Deborah Quiroga APRN PCP - General Family Medicine 03/24/16 02/04/23 documented as of this encounter
--- OUTSIDE RECORDS SUMMARY | 2024-02-22 14:14 | XMS_ITS | Encounter Summary ---
[place] [address] Care Team Providers Care Tanker Serviceman Name Role Phone Deborah Quiroga Cornelius OSBORN Primary Care Provider [phone] Encounter Details Date Type Department Care Team (Late st Contact Info) Description 01/13/2021 Refill Dermatology at [address] [phone] Taylor Malone, CARD FIXER Social History Tobacco Use Types Packs/Day Years [...] PM EDT Office Visit Dermatology at [address] [address] Marek Bonilla MD [address] [place] [address] [place] [address] 06/05/2024 11:30 AM EST Office [place] [address] Magdalena Peralta MD [facility] [place] [address] documented as of this encounter Visit Diagnoses Not on filedocumented in this encounter Care Teams Tanker Serviceman Relationship Specialty Start Date End Date Deborah Quiroga APRN PCP - General Family Medicine 03/24/16 02/04/23 documented as of this encounter
--- OUTSIDE RECORDS SUMMARY | 2024-02-22 14:14 | XMS_ITS | Encounter Summary ---
Author Organization [facility] [place] [address] Care Team Providers Care Analytics Lead Name Role Phone Deborah Quiroga APRN Primary Care Provider [phone] Encounter Details Date Type Department Care Team (Late st Contact Info) Description 02/06/2020 Orders Only Hematology [place] [phone] Markel Borjas MD [facility] [place] [address] Neutropenia, unspecified type Social History Tobacco Use [...] 4:15 PM EDT Office Visit Dermatology at [address] [place] [phone] Marek Bonilla MD [address] [facility] DERMATOLOGY [place], [place] [phone] 06/05/2024 11:30 AM EST Office [place] [phone] Magdalena Peralta MD [facility] [place] [address] documented as of this encounter Visit Diagnoses Diagnosis Neutropenia, unspecified type documented in this encounter Care Teams Analytics Lead Relationship Specialty Start Date End Date Deborah Quiroga APRN PCP - General Family Medicine 03/24/16 02/04/23 documented as of this encounter
--- OUTSIDE RECORDS SUMMARY | 2024-02-22 14:14 | XMS_ITS | Encounter Summary ---
Author Organization [facility] Address [facility] [place] [address] Care Team Providers Care Medical Record Specialist Name Role Phone Junaid Deborah Shields APRN Primary Care Provider [phone] Encounter Details Date Type Department Care Team (Latest Contact Info) Description 10/14/2016 - 10/14/2016 11:59 PM EDT Hospital Encounter [place] [address] Alirio Esparza MD [facility] DR [place] [address] Pain Discharge Disposition: Home Social History Tobacco [...] PM EDT Office Visit Dermatology at [address] [place] [address] Marek Bonilla MD [address] [facility] [place] [address] 06/05/2024 11:30 AM EST Office [place] [address] Magdalena Peralta MD [facility] [place] [address] documented as of this encounter Procedures Procedure Name Priority Date/Time Associated Diagnosis Comments FILM LIBRARY STORAGE ONLY DX CHEST Routine 10/14/2016 12:00 AM EDT Pain documented in this encounter Results * Film Library- Storage Only DX Chest (10/14/2016 12:00 AM EDT) Narrative [facility] - 10/14/2016 5:16 PM EDT This exam is for storage only and is auto-finalizing. Alirio Esparza MD IMG FILM LIBRARY OR DERABLES [place], [place] documented in this encounter Visit Diagnoses Diagnosis Pain Generalized pain documented in this encounter Care Teams Medical Record Specialist Relationship Specialty Start Date End Date Deborah Quiroga, PRACTICE LEAD PCP - General Family Medicine 03/24/16 02/04/23 documented as of this encounter
--- OUTSIDE RECORDS SUMMARY | 2024-02-22 14:14 | XMS_ITS | Encounter Summary ---
Author Organization [facility] [place] [address] Care Team Providers Care Windows Vmware Engineer Name Role Phone Deborah Quiroga ANURAG Primary Care Provider [phone] Encounter Details Date Type Department Care Team (Late st Contact Info) Description 01/09/2022 Refill Dermatology at [address] [address] Lupe Connor RN Social History [...] PM EDT Office Visit Dermatology at [address] [phone] Marek Bonilla MD [address] [place] [address] [place] [address] 06/05/2024 11:30 AM EST Office [place] [address] Magdalena Peralta MD [facility] [place] [address] documented as of this encounter Visit Diagnoses Not on filedocumented in this encounter Care Teams Windows Vmware Engineer Relationship Specialty Start Date End Date Deborah Quiroga APRN PCP - General Family Medicine 03/24/16 02/04/23 documented as of this encounter
--- OUTSIDE RECORDS SUMMARY | 2024-02-22 14:14 | XMS_ITS | Encounter Summary ---
Author Organization [facility] Erika ló[place] [address] Care Team Providers Care Component Technician Name Role Phone Deborah Quiroga APRN Primary Care Provider [phone] Encounter Details Date Type Department Care Team [...] PM EDT Office Visit Dermatology at [address] [phone] Marek Bonilla MD [address] [place] [address] [place] [address] 06/05/2024 11:30 AM EST Office [place] [address] Magdalena Peralta MD [facility] [place] [address] documented as of this encounter Visit Diagnoses Not on filedocumented in this encounter Care Teams Component Technician Relationship Specialty Start Date End Date Deborah Quiroga APRN PCP - General Family Medicine 03/24/16 02/04/23 documented as of this encounter
--- OUTSIDE RECORDS SUMMARY | 2024-02-22 14:14 | XMS_ITS | Encounter Summary ---
Author Organization [facility] [place] [address] Care Team Providers Care Design Center Consultant Name Role Phone Deborah Quiroga APRN Primary Care Provider [phone] Encounter Details Date Type Department Care Team (Late st Contact Info) Description 06/18/2017 External Results Hematology [place] [address] Alexandrea Greenwood RN Neutropenia, unspecified [...] PM EDT Office Visit Dermatology at [address] [place] [address] Marek Bonilla MD [address] [facility] [place] [address] 06/05/2024 11:30 AM EST Office [place] [address] Magdalena Peralta MD [facility] [place] [address] documented as of this encounter Procedures Procedure [...] MD CHEMISTRY ORDERABL ES Performing Organization Address [facility] Co de Phone Number EXTERNAL LAB * (ABNORMAL) CBC (with Diff) (06/11/2017 1:19 PM EST) Pathologist [facility] WBC 2.28(EXTER NAL/ABN) 4.4 - 10.8 EXTERNAL [...] type documented in this encounter Care Teams Design Center Consultant Relationship Specialty Start Date End Date Deborah Quiroga APRN PCP - General Family Medicine 03/24/16 02/04/23 documented as of this encounter
--- OUTSIDE RECORDS SUMMARY | 2024-02-22 14:14 | XMS_ITS | Encounter Summary ---
[place] [address] Care Team Providers Care Refrigeration Unit Repairer Name Role Phone Deborah Quiroga APRN Primary Care Provider [phone] Encounter Details Date Type Department Care Team (Late st Contact Info) Description 06/05/2021 Interpretation Only [address] [phone] Deborah Quiroga APRN [address] [address] Social History Tobacco Use Types Packs/Day Years [...] PM EDT Office Visit Dermatology at [address] [place] [address] Marek Bonilla MD [address] [facility] [place] [address] 06/05/2024 11:30 AM EST Office Visit [place] [address] Magdalena Peralta MD [facility] [place] [address] documented as of this encounter Procedures Procedure Name Priority Date/Time Associated Diagnosis Comments DXA CENTRAL SPINE, HIP, AND/OR WHOLE BODY (GENERIC) Routine 06/05/2021 11:58 AM EDT documented in this encounter Results * DXA Central Spine, Hip, and/or Whole Body (Generic) (06/05/2021 11:58 AM EDT) PT CLASS O RAD ADMITDTTM RAD PT RAD INFO [id number]^E VERETT^DEBORAH ^E RAD EXAM DESC XDXAC^DEXA SCAN [...] who have questions please contact the health direct care supervisor that requested your imaging first. ? Electronically signed by: Rocael Villatoro MD, [facility] ([phone]), at 06/05/2021 12:00 PM Narrative 06/05/2021 12:00 PM EDT EXAMINATION: DEXA [...] patients who have questions please contactthe health direct care supervisor that requested your imaging first. Electronically signed by: Rocael Villatoro MD, [facility]([phone]), at 06/05/2021 12:00 PM Deborah Quiroga APRN [facility] DEXA ORDERABLES documented in this encounter Visit Diagnoses Not on filedocumented in this encounter Care Teams Refrigeration Unit Repairer Relationship Specialty Start Date End Date Deborah Quiroga APRN PCP - General Family Medicine 03/24/16 02/04/23 documented as of this encounter
--- OUTSIDE RECORDS SUMMARY | 2024-02-22 14:14 | XMS_ITS | Encounter Summary ---
[place] [address] Care Team Providers Care Edge Stripper Name Role Phone JunaidDeborah hargrove APRN Primary Care Provider [phone] Reason for Visit * Reason Comments Follow-up Encounter Details Date Type Department Care Team (Late st Contact Info) Description 01/10/2021 4:30 PM EDT Office Visit Dermatology at [address] [address] Marek Bonilla MD [address] [facility] DERMATOLOGY [place], [place] [phone] Rosacea Social History Tobacco Use Types Packs/Day [...] cutaneous and ocular 2. Previously told by organ grinder that she had corneal tears from her [...] 3 refills. Will call this in her [facility] pharmacy in [place] 3. Continue metronidazole 0.75% gel applying once [...] PM EDT Office Visit Dermatology at [address] [address] Marek Bonilla MD [address] [place] [address] [place] [address] 06/05/2024 11:30 AM EST [place] [address] Magdalena Peralta MD [facility] [place] [address] documented as of this encounter Visit Diagnoses Diagnosis Rosacea documented in this encounter Care Teams Edge Stripper Relationship Specialty Start Date End Date Deborah Quiroga APRN PCP - General Family Medicine 03/24/16 02/04/23 documented as of this encounter
--- OUTSIDE RECORDS SUMMARY | 2024-02-22 14:14 | XMS_ITS | Encounter Summary ---
Author Organization [facility] Address [facility] [place] [address] Care Team Providers Care Business Assistant Name Role Phone Junaid Deboarh Shields APRN Primary Care Provider [phone] Encounter Details Date Type Department Care Team (Latest Contact Info) Description 06/22/2022 10:00 AM EST Office Visit [place] [address] Raymond Loredo MD [facility] [place] [address] Raynaud's phenomenon without gangrene; Positive FRANCISCO (antinuclear [...] can be done locally or here at [facility] that the current time is not particularly [...] for surgery by Dr. Rogers here at [facility]. In addition to painful dysesthesias in her [...] over radiocarpal or ulnocarpal joints. Hands: Normal sales research analyst and claw. SJC/TJC 0/0. Knees: Decreased flexion [...] 4:15 PM EDT Office Visit Dermatology at [place] [address] [place] [address] Marek Bonilla MD [address] [facility] [place] [address] 06/05/2024 11:30 AM EST Office Visit [place] [address] Magdalena Peralta MD [facility] [place] [address] documented as of this encounter Visit Diagnoses Diagnosis Raynaud's phenomenon without gangrene Positive FRANCISCO (antinuclear antibody) Other and unspecified nonspecific immunological findings Primary osteoarthritis involving multiple joints Cervical disc disorder at C6-C7 level with radiculopathy documented in this encounter Care Teams Business Assistant Relationship Specialty Start Date End Date Deborah Quiroga APRN PCP - General Family Medicine 03/24/16 02/04/23 documented as of this encounter
--- OUTSIDE RECORDS SUMMARY | 2024-02-22 14:14 | XMS_ITS | Encounter Summary ---
Author Organization [facility] Address [facility] [place] [address] Care Team Providers Care Flame Gouger Name Role Phone Ashley Quirogazca Shields APRN Primary Care Provider [phone] Reason for Referral * Consultation (Routine) - Closed Specialty Diagnoses / Procedures Referred By Contac t Referred To Contact Neurology Diagnoses Neck pain Popeye Rogers MD [facility] [place] [address] Kyra Haas MD [facility] [address] [address] Referral ID Status Reason Start Date Expiration Date V isits Requested Visits Authorized [id number] Closed Consult, Test & Treat 06/29/2022 06/29/2023 1 1 Reason for Visit * Reason Comments Neck Pain Weak in both arms, p ain and tingling in arms and hands Encounter Details Date Type Department Care Team (Late st Contact Info) Description 06/29/2022 10:20 AM EST Office Visit [facility] [place] [address] Popeye Rogers MD [facility] [place] [address] Neck pain Social History Tobacco Use Types [...] have EMG and nerve conduction studies in [place] that showed carpal tunnel syndrome. I do not have a copy of that report. documented in this encounter Plan of Treatment Upcoming Encounters Date Type Department Care Team (Late st Contact Info) Description 02/22/2024 4:15 PM EDT Office Visit Dermatology at [address] [place] [address] Marek Bonilla MD 580 [facility] [place] [address] 06/05/2024 11:30 AM EST Office [place] [address] Magdalena Peralta MD [facility] [place] [address] Scheduled Referrals Name Type Priority Associated Diagnoses Orde r Schedule Referral to Neurology Outpatient Referral Routine Neck pain Ordered: 06/29/2022 documented as of this encounter Visit Diagnoses Diagnosis Neck pain Cervicalgia documented in this encounter Care Teams Flame Gouger Relationship Specialty Start Date End Date Deborah Quiroga APRN PCP - General Family Medicine 03/24/16 02/04/23 documented as of this encounter
--- OUTSIDE RECORDS SUMMARY | 2024-02-22 14:14 | XMS_ITS | Encounter Summary ---
Author Organization [facility] [place] [address] Care Team Providers Care Newspaper Manager Name Role Phone Deborah Quiroga ANURAG Primary Care Provider [phone] Encounter Details Date Type Department Care Team (Late st Contact Info) Description 07/21/2017 Orders Only [place] [phone] Alexandrea Greenwood RN Other neutropenia Social History [...] 4:15 PM EDT Office Visit Dermatology at [place] [address] [place] [address] Marek Bonilla MD [address] [facility] [place] [address] 06/05/2024 11:30 AM EST [place] [address] Magdalena Peralta MD [facility] [place] [address] documented as of this encounter Visit Diagnoses Diagnosis Other neutropenia documented in this encounter Care Teams Newspaper Manager Relationship Specialty Start Date End Date Deborah Quiroga, ANURAG PCP - General Family Medicine 03/24/16 02/04/23 documented as of this encounter
--- OUTSIDE RECORDS SUMMARY | 2024-02-22 14:14 | XMS_ITS | Encounter Summary ---
Author Organization [place] [address] Care Team Providers Care Anthropology And Archeology Instructor Name Role Phone Deborah Quiroga ANURAG Primary Care Provider [phone] Encounter Details Date Type Department Care Team (Late st Contact Info) Description 12/04/2016 External Results Hematology [place] [address] Teresa Dodson RN Social History [...] 4:15 PM EDT Office Visit Dermatology at [address] [place] [address] Marek Bonilla MD 580 [facility] [place] [address] 06/05/2024 11:30 AM EST Office [place] [address] Magdalena Peralta MD [facility] [place] [address] documented as of this encounter Procedures Procedure Name Priority Date/Time Associated Diagnosis Comments CBC (WITH DIFF) Routine 12/03/2016 11:35 AM EDT COMPREHENSIVE METABOLIC PANEL (NON-FASTING) Routine 12/03/2016 11:35 AM EDT documented in this encounter Results * (ABNORMAL) Comprehensive metabolic panel (non-fasting) (12/03/2016 11:35 AM EDT) Glucose Lvl 85(Externa l Lab) BUN 11(Externa l Lab) Creatinine 0.93(Exter nal Lab) Sodium 140(Typesetting Machine Tender al Lab) Potassium 4.2(Typesetting Machine Tender al Lab) Chloride 104(Typesetting Machine Tender al Lab) Calcium 10.0(Exter nal Lab) Total Protein 8.1(Typesetting Machine Tender al Lab) Albumin 3.5(Typesetting Machine Tender al Lab) Total Bilirubin 0.25(Exter nal Lab) Alk Phos 96(Externa l Lab) AST 18(Externa l Lab) ALT 21(Externa l Lab) Blood specimen (specimen) 12/03/2016 11:35 AM EDT Historical Provider CHEMISTRY ORDERAB LES * (ABNORMAL) CBC (with Diff) (12/03/2016 11:35 AM EDT) WBC 1.61(EXTER NAL/ABN) 4.4 - 10.8 Hemoglobin 13.0(Exter nal Lab) Hematocrit 39.8(Exter nal Lab) Platelets 248(Typesetting Machine Tender al Lab) Neutr Abs (ANC) 0.5(CONDUCTOR FREIGHT AL/ABN) Blood specimen (specimen) 12/03/2016 11:35 AM EDT Historical Provider HEMATOLOGY ORDERA BLES documented in this encounter Visit Diagnoses Not on filedocumented in this encounter Care Teams Anthropology And Archeology Instructor Relationship Specialty Start Date End Date Deborah Quiroga, ADMINISTRATIVE SERVICES OFFICER PCP - General Family Medicine 03/24/16 02/04/23 documented as of this encounter
--- OUTSIDE RECORDS SUMMARY | 2024-02-22 14:14 | XMS_ITS | Encounter Summary ---
Author Organization [facility] [place] [address] Care Team Providers Care Manager Care Management Name Role Phone Deborah Quiroga APRN Primary Care Provider [phone] Encounter Details Date Type Department Care Team (Late st Contact Info) Description 06/17/2022 Ancillary Procedure [place] [address] Deborah Quiroga METAL STUD FRAMER [address] [address] Social History Tobacco Use Types Packs/Day Years [...] 4:15 PM EDT Office Visit Dermatology at [address] [place] [address] Marek Bonilla MD 580 [facility] DERMAT[facility]Y [place], [place] [address] 06/05/2024 11:30 AM EST Office [place] [address] Magdalena Peralta MD [facility] [place] [address] documented as of this encounter Procedures Procedure Name Priority Date/Time Associated Diagnosis Comments FILM LIBRARY STORAGE ONLY MR SPINE Routine 06/17/2022 12:00 AM EST documented in this encounter Results * Film Library- Storage Only MR Spine (06/17/2022 12:00 AM EST) Narrative [facility] - 06/18/2022 11:00 AM EST This exam is auto-finalizing. It's purpose is for storage only. Deborah Quiroga APRN IMGerman FILM LIBRARY OR DERABLES Performing Organization Address City/State/[facility] Co de Phone Number [place], [place] documented in this encounter Visit Diagnoses Not on filedocumented in this encounter Care Teams Manager Care Management Relationship Specialty Start Date End Date Deborah Quiroga APRN PCP - General Family Medicine 03/24/16 02/04/23 documented as of this encounter
--- OUTSIDE RECORDS SUMMARY | 2024-02-22 14:14 | XMS_ITS | Encounter Summary ---
Author Organization [facility] [address] Care Team Providers Care Figure Clerk Name Role Phone Junaid Deborah Shields APRN Primary Care Provider [phone] Encounter Details Date Type Department Care Team (Late st Contact Info) Description 03/04/2020 External Results Hematology [place] [address] ThershaniquexBhumi Social History Tobacco Use [...] PM EDT Office Visit Dermatology at [address] [place] [address] Marek Bonilla MD 580 [facility] [place] [address] 06/05/2024 11:30 AM EST Office [place] [address] Magdalena Peralta MD [facility] [place] [address] documented as of this encounter Procedures Procedure Name Priority Date/Time Associated Diagnosis Comments LIPID PANEL (NO REFLEX) Routine 02/28/2020 7:45 AM EDT CBC (WITH DIFF) Routine 02/28/2020 7:45 AM EDT COMPREHENSIVE METABOLIC PANEL (NON-FASTING) Routine 02/28/2020 7:45 AM EDT documented in this encounter Results * (ABNORMAL) Lipid Panel (No Reflex) (02/28/2020 7:45 AM EDT) Chol, Total 179 <200 EXTERNAL LAB Triglycerides 254(ENVIRONMENTAL RESEARCH SCIENTIST AL/ABN) <150 EXTERNAL LAB HDL 50 40 - 60 EXTERNAL LAB LDL Cholesterol 79 <100 EXTERNAL LAB Blood specimen (specimen) 02/28/2020 7:45 AM EDT Historical Provider MD CHEMISTRY ORDERAB LES Performing Organization Address City/[facility]/ZIP Co de Phone Number EXTERNAL LAB * (ABNORMAL) Comprehensive metabolic panel (non-fasting) (02/28/2020 7:45 AM EDT) Glucose Lvl 109(ENVIRONMENTAL RESEARCH SCIENTIST AL/ABN) 74 - 106 EXTERNAL LAB BUN [...] MD CHEMISTRY ORDERAB LES Performing Organization Address City/[facility]/ZIP Co de Phone Number EXTERNAL LAB * [...] on filedocumented in this encounter Care Teams Figure Clerk Relationship Specialty Start Date End Date Deborah Quiroga, WELDER FIRST CLASS PCP - General Family Medicine 03/24/16 02/04/23 documented as of this encounter
--- OUTSIDE RECORDS SUMMARY | 2024-02-22 14:14 | XMS_ITS | Encounter Summary ---
[place] [address] Care Team Providers Care Cnc Programmer Name Role Phone Deborah Quiroga APRN Primary Care Provider [phone] Reason for Visit * Reason Comments Annual Exam Encounter Details Date Type Department Care Team (Late st Contact Info) Description 01/09/2022 3:15 PM EDT Office Visit Dermatology at [address] [address] Marek Bonilla MD 580 [facility] DERMATOLOGY [place], [place] [phone] Rosacea Social History Tobacco Use Types Packs/Day [...] cutaneous and ocular 2. Previously told by sidewalk repairer that she had corneal tears from her [...] refills. We will call this into her [facility] pharmacy in [place] 3. Continue metronidazole 0.75% gel applying every [...] PM EDT Office Visit Dermatology at [address] [address] Marek Bonilla MD [address] [place] [address] [place] [address] 06/05/2024 11:30 AM EST Office [place] [address] Magdalena Peralta MD [facility] [place] [address] documented as of this encounter Visit Diagnoses Diagnosis Rosacea documented in this encounter Care Teams Cnc Programmer Relationship Specialty Start Date End Date Deborah Quiroga APRN PCP - General Family Medicine 03/24/16 02/04/23 documented as of this encounter
--- OUTSIDE RECORDS SUMMARY | 2024-02-22 14:14 | XMS_ITS | Encounter Summary ---
[place] [address] Care Team Providers Care Print Developer Automatic Name Role Phone Deborah Quiroga APRN Primary Care Provider [phone] Reason for Referral * Consultation (Routine) - Closed Specialty Diagnoses / Procedures Referred By Contac t Referred To Contact Rheumatology Diagnoses Positive FRANCISCO (antinuclear antibody) Arthralgia, unspecified joint Sandy Wu APRN [address] [place] [address] [facility] Rheumatology [address] [place] [address] Referral ID Status Reason Start Date Expiration Date V isits Requested Visits Authorized [id number] Closed Consult, Test & Treat PCP Updated and/or Approved 01/01/2022 01/01/2023 6 6 Encounter Details Date Type Department Care Team (Latest Contact Info) Description 01/01/2022 Transcribe Orders eDH Incoming Referrals [phone] Sandy Wu APRN [address] [place], [place] [id number] Positive FRANCISCO (antinuclear antibody); Arthralgia, unspecified joint [...] 4:15 PM EDT Office Visit Dermatology at [place] [address] [place] [address] Marek Bonilla MD [address] [facility] [place] [address] 06/05/2024 11:30 AM EST Office [place] [address] Magdalena Peralta MD [facility] [address] [place] [address] Scheduled Referrals Name Type Priority Associated Diagnoses Orde r Schedule Referral to Rheumatology Outpatient Referral Routine Positive FRANCISCO (antinuclear antibody) Arthralgia, unspecified joint Ordered: 01/01/2022 documented as of this encounter Visit Diagnoses Diagnosis Positive FRANCISCO (antinuclear antibody) Other and unspecified nonspecific immunological findings Arthralgia, unspecified joint documented in this encounter Care Teams Print Developer Automatic Relationship Specialty Start Date End Date Deborah Quiroga APRN PCP - General Family Medicine 03/24/16 02/04/23 documented as of this encounter
--- OUTSIDE RECORDS SUMMARY | 2024-02-22 14:14 | XMS_ITS | Encounter Summary ---
Author Organization [facility] Address [facility] [place] [address] Care Team Providers Care Franchise Sales Representative Name Role Phone Deborah Quiroga APRN Primary Care Provider [phone] Reason for Visit * Reason Comments Follow-up Encounter Details Date Type Department Care Team (Late st Contact Info) Description 07/03/2022 1:30 PM EST Office Visit Hematology and Oncology at [facility] [place] [address] Markel Borjas [place] [facility] [address] Consuelo Sommer APRN [facility] [address] [place]EMATOLOGY [place] [address] Chronic idiopathic neutropenia; Dysuria Social History Tobacco [...] 07/03/2022 1:30 PM EST Hematology Outpatient Clinic [facility] Hematology Outpatient Consult Note CC: [id number] [...] TOUCH PREP, CLOT SECTION, CORE ??BIOPSY); [OSR# [id number], COLLECTED 06/23/2016, 19 SLIDES]: ?1. ??Normocellular marrow [...] a clonal lymphoproliferative or myeloproliferative disorder (OSR# [id number]) Chromosome analysis on the marrow aspirate revealed [...] - neg ETOH - neg Works at [employer] in [employer] department Plays competitive scrabble, and goes to [employer] Family History: No known primary marrow disorders [...] intact. Extremities: No edema. Labs: Hgb= 11.7 Nrkc=027 ANC= 2.5 Imaging As above - reviewed [...] 4:15 PM EDT Office Visit Dermatology at [place] [address] [facility] [place] [address] Marek Bonilla MD 580 [facility] [place] [address] 06/05/2024 11:30 AM EST Office [place] [address] Magdalena Peralta MD [facility] [place] [address] documented as of this encounter Procedures Procedure [...] tract infection, submit a new specimen. (A) [facility] Clean Catch Urine 07/03/2022 2:00 PM EST 07/03/2022 5:55 PM EST Narrative Resulting Agency Comment Spec In Lab Markel Borjas MD MICROBIOLOGY - GEN ERAL ORDERABLES Performing Organization Address [facility]/ZIP Co de Phone Number [facility] [place] [address] * (ABNORMAL) Urinalysis Microscopic Exam (07/03/2022 2:00 PM EST) RBC UA 2 0 - 4 /HPF [facility] WBC UA 14(H) 0 - 5 /HPF [facility] Bacteria UA Occasional (A) None /HPF [facility] Squam Epith UA 12(H) <=4 /HPF [facility] Hyaline Cast UA 2 0 - 2 /LPF [facility] Clean Catch Urine 07/03/2022 2:00 PM EST 07/03/2022 2:29 PM EST Narrative Resulting Agency Comment Spec In Lab Markel Borjas MD URINE ORDERABLES Performing Organization Address City/[facility]/ZIP Co de Phone Number [facility] [place] [address] * (ABNORMAL) Urinalysis with reflex Culture (07/03/2022 2:00 PM EST) Glucose UA Negative Negative mg/dL [facility] Protein UA 30(A) Negative mg/dL [facility] Bilirubin UA Negative Negative mg/dL [facility] Comment: Clinical correlation required for positive Urine Bilirubin results as false positive may occur with some drugs and drug related products. If a false positive is suspected a serum total bilirubin should be considered if clinically indicated. Urobilinogen UA Normal Normal mg/dL [facility] pH UA 5.5 5.0 - 8.0 [facility] Blood UA Negative Negative mg/dL [facility] Ketones UA Trace(A) Negative mg/dL [facility] Nitrite UA Negative Negative [facility] Leukocytes UA Small(A) Negative [facility] Appearance UA Clear Clear [facility] Spec [place] UA 1.022 1.005 - 1.030 [facility] Color UA Yellow Yellow [facility] Culture Reflexed Yes [facility] Clean Catch Urine 07/03/2022 2:00 PM EST 07/03/2022 2:29 PM EST Narrative Resulting Agency Comment Spec In Lab Markel Borjas MD URINE ORDERABLES Performing Organization Address City/State/[facility] Co de Phone Number [facility] [place] [address] * (ABNORMAL) Comprehensive metabolic panel (non-fasting) (07/03/2022 12:40 PM EST) Glucose Lvl 92 65 - 199 mg/dL [facility] Comment:Diabetes: >=200 mg/d L plus symptoms BUN 22(H) 8 - 18 mg/dL [facility] Creatinine 0.80 0.70 - 1.20 mg/dL [facility] [...] 15 mmol/L [facility] Calcium 10.1 8.5 - 10.5 mg/dL [facility] Total Protein 7.6 6.1 - 8.0 g/dL [facility] Albumin 4.1 3.2 - 5.2 g/dL [facility] AST 25 0 - 30 unit/L [facility] ALT 14 0 - 30 unit/L [facility] Alk Phos 80 35 - 105 unit/L [facility] Total Bilirubin 0.3 0.2 - 1.3 mg/dL [facility] Estimated GFR 81 >=60 mL/min/1. 73 m?? [facility] [...] Lab Markel Borjas MD CHEMISTRY ORDERABL ES [facility] [place] [address] documented in this encounter Visit Diagnoses Diagnosis Chronic idiopathic neutropenia Other neutropenia Dysuria documented in this encounter Care Teams Franchise Sales Representative Relationship Specialty Start Date End Date Deborah Quiroga APRN PCP - General Family Medicine 03/24/16 02/04/23 documented as of this encounter
--- OUTSIDE RECORDS SUMMARY | 2024-02-22 14:14 | XMS_ITS | Encounter Summary ---
Author Organization [facility] [place] [address] Care Team Providers Care Financial Administrative Assistant Name Role Phone Ashley Quirogan [place] ANURAG Primary Care Provider [phone] Reason for Visit * Reason Onset Date Comments Results 12/03/2016 Encounter Details Date Type Department Care Team (Late Contact Info) Description 12/03/2016 Telephone Hematology [place] [address] Yudith Valentine RN Results Social History Tobacco [...] EDT RN received call from Maddy at [facility] reporting critical WBC at 1.61, and ANC of 0.5. She will fax the full results to this office for review assistant notified DR Borjas of above results documented in this encounter Plan of Treatment Upcoming Encounters Date Type Department Care Team (Late st Contact Info) Description 02/22/2024 4:15 PM EDT Office Visit Dermatology at [address] [address] Marek Bonilla MD [address] [place] [address] [place] [address] 06/05/2024 11:30 AM EST Office [place] [address] Magdalena Peralta MD [facility] [place] [address] documented as of this encounter Visit Diagnoses Not on filedocumented in this encounter Care Teams Financial Administrative Assistant Relationship Specialty Start Date End Date Deborah Quiroga APRN PCP - General Family Medicine 03/24/16 02/04/23 documented as of this encounter
--- OUTSIDE RECORDS SUMMARY | 2024-02-22 14:14 | XMS_ITS | Encounter Summary ---
Author Organization [facility] Erika lópezsyl[place] [address] Care Team Providers Care Nuclear Medical Tech Name Role Phone Deborah Quiroga APRN Primary Care Provider [phone] Encounter Details Date Type Department Care Team [...] PM EDT Office Visit Dermatology at [address] [address] Marek Bonilla MD [address] [place] [address] [place] [address] 06/05/2024 11:30 AM EST Office [place] [address] Magdalena Peralta MD [facility] [place] [address] documented as of this encounter Visit Diagnoses Not on filedocumented in this encounter Care Teams Nuclear Medical Tech Relationship Specialty Start Date End Date Deborah Quiroga APRN PCP - General Family Medicine 03/24/16 02/04/23 documented as of this encounter
--- OUTSIDE RECORDS SUMMARY | 2024-02-22 14:14 | XMS_ITS | Encounter Summary ---
[place] [address] Care Team Providers Care Die Out Worker Name Role Phone Deborah Quiroga APRN Primary Care Provider [phone] Encounter Details Date Type Department Care Team (Late st Contact Info) Description 06/05/2021 Interpretation Only [address] [phone] Deborah Quiroga APRN [address] [address] Social History Tobacco Use Types Packs/Day Years [...] 4:15 PM EDT Office Visit Dermatology at [address] [place] [address] Marek Bonilla MD [address] [facility] [place] [address] 06/05/2024 11:30 AM EST Office [place] [address] Magdalena Peralta MD [facility] [place] [address] documented as of this encounter Procedures Procedure Name Priority Date/Time Associated Diagnosis Comments MAMMO SCREENING CAD AND CATRACHITO BILATERAL Routine 06/05/2021 11:42 AM EDT documented in this encounter Results * Mammo Screening Cad and Catrachito Bilateral (06/05/2021 11:42 AM EDT) PT CLASS O DH RAD ADMITDTTM DH RAD PT DH RAD MD INFO [id number]^EVERET T^DEBORAH^E DH RAD EXAM DESC MADDSCTO^BREAST SCREEN [...] who have questions please contact the health career orientation teacher that requested your imaging first. ? Narrative 06/05/2021 1:27 PM EDT EXAMINATION: BREAST [...] are almost entirely fatty. Procedure Note Rocael iVllatoro MD - 06/05/2021 EXAMINATION: BREAST SCREEN TOMOSYNTHESIS [...] patients who have questions please contactthe health career orientation teacher that requested your imaging first. Deborah Quiroga APRN IMG MAMMO ORDERABLE S documented in this encounter Visit Diagnoses Not on filedocumented in this encounter Care Teams Die Out Worker Relationship Specialty Start Date End Date Deborah Quiroga APRN PCP - General Family Medicine 03/24/16 02/04/23 documented as of this encounter
--- OUTSIDE RECORDS SUMMARY | 2024-02-22 14:14 | XMS_ITS | Encounter Summary ---
[place] [address] Care Team Providers Care Inspector Filters Name Role Phone Ashley Quirogazac Shields APRN Primary Care Provider [phone] Reason for Visit * Reason Comments Skin Check Encounter Details Date Type Department Care Team (Late st Contact Info) Description 11/11/2020 10:45 AM EDT Office Visit Dermatology at [address] [address] Marek Bonilla MD [address] [facility] DERMATOLOGY [place], [place] [id number] Rosacea; Acrochordon Social History Tobacco Use Types [...] Discussed the possibility of getting this through [email or web address] or from the [facility] pharmacy if necessary. She has not yet [...] PM EDT Office Visit Dermatology at [address] [address] Marek Bonilla MD [address] [place] [address] [place] [address] 06/05/2024 11:30 AM EST Office [place] [address] Magdalena Peralta MD [facility] [place] [address] documented as of this encounter Visit Diagnoses Diagnosis Rosacea Acrochordon Unspecified hypertrophic and atrophic condition of skin documented in this encounter Care Teams Inspector Filters Relationship Specialty Start Date End Date Deborah Quiroga APRN PCP - General Family Medicine 03/24/16 02/04/23 documented as of this encounter
--- OUTSIDE RECORDS SUMMARY | 2024-02-22 14:14 | XMS_ITS | Encounter Summary ---
[place] [address] Care Team Providers Care Parts Order And Stock Clerk Name Role Phone Ashley Quirogan Cornelius ANURAG Primary Care Provider [phone] Reason for Visit * Reason Onset Date Comments Medical Care Coordination 07/27/2017 Encounter Details Date Type Department Care Team (Late st Contact Info) Description 07/27/2017 Telephone Hematology [place] [address] Alexandrea Greenwood RN Medical Care Coordination Social [...] 12:25 PM EST Message received from secretary board of commissioners: Injection/Infusion Referral Call placed to [facility] @ [phone] Spoke w/ SALES AND SERVICE TECHNICIAN Services to be provided for pt are: CBC/CMP DONE Q6 MONTHS X2 STARTING NOVEMBER 2017 TECH confirmed they would provide services to pt - I CALLED PT, LM. Pt orders faxed to [phone] documented in this encounter Plan of Treatment Upcoming Encounters Date Type Department Care Team (Late st Contact Info) Description 02/22/2024 4:15 PM EDT Office Visit Dermatology at [place] [address] [place] [address] Marek Bonilla MD [address] [facility] [place] [address] 06/05/2024 11:30 AM EST Office [place] [address] Magdalena Peralta MD [facility] [place] [address] documented as of this encounter Visit Diagnoses Not on filedocumented in this encounter Care Teams Parts Order And Stock Clerk Relationship Specialty Start Date End Date Deborah Quiroga APRN PCP - General Family Medicine 03/24/16 02/04/23 documented as of this encounter
--- OUTSIDE RECORDS SUMMARY | 2024-02-22 14:14 | XMS_ITS | Encounter Summary ---
Author Organization [facility] Address [facility] [place] [address] Care Team Providers Care Carding Utility Tender Name Role Phone Deborah Quiroga APRN Primary Care Provider [phone] Encounter Details Date Type Department Care Team (Late st Contact Info) Description 03/01/2020 11:30 AM EDT Office Visit Hematology and Oncology at [facility] [place] [phone] Patrick Borjas MD [facility] [place] [address] Neutropenia, unspecified type Social History Tobacco Use [...] 03/01/2020 11:30 AM EDT Hematology Outpatient Clinic [facility] Hematology Outpatient Consult Note CC: [...] TOUCH PREP, CLOT SECTION, CORE ??BIOPSY); [OSR# [id number], COLLECTED 06/23/2016, 19 SLIDES]: ?1. ??Normocellular marrow [...] a clonal lymphoproliferative or myeloproliferative disorder (OSR# [id number]) Chromosome analysis on the marrow aspirate revealed [...] - neg ETOH - neg Works at [employer] in [place] department Plays competitive scrabble, and goes to [employer] Family History: No known primary marrow disorders [...] intact. Extremities: No edema. Labs: Hgb= 12.4 Lhic=816 ANC= 2.5 Imaging As above - reviewed [...] PM EDT Office Visit Dermatology at [address] [place] [address] Marek Bonilla MD [address] [facility] [place] [address] 06/05/2024 11:30 AM EST Office [place] [address] Magdalena Peralta MD [facility] [place] [address] documented as of this encounter Visit Diagnoses Diagnosis Neutropenia, unspecified type documented in this encounter Care Teams Carding Utility Tender Relationship Specialty Start Date End Date Deborah Quiroga APRN PCP - General Family Medicine 03/24/16 02/04/23 documented as of this encounter
--- OUTSIDE RECORDS SUMMARY | 2024-02-22 14:14 | XMS_ITS | Encounter Summary ---
Author Organization [facility] Erika ló[place] [address] Care Team Providers Care Service Engine Repairer Name Role Phone Deborah Quiroga APRN Primary Care Provider [phone] Encounter Details Date Type Department Care Team [...] PM EDT Office Visit Dermatology at [address] [address] Marek Bonilla MD [address] [place] [address] [place] [address] 06/05/2024 11:30 AM EST Office Visit [place] [address] Magdalena Peralta MD [facility] [address] documented as of this encounter Visit Diagnoses Not on filedocumented in this encounter Care Teams Service Engine Repairer Relationship Specialty Start Date End Date Deborah Quiroga APRN PCP - General Family Medicine 03/24/16 02/04/23 documented as of this encounter
--- OUTSIDE RECORDS SUMMARY | 2024-02-22 14:14 | XMS_ITS | Encounter Summary ---
Author Organization [facility] Address [facility] [place] [address] Care Team Providers Care Underlay Stitcher Name Role Phone Deborah Quiroga APRN Primary Care Provider [phone] Encounter Details Date Type Department Care Team (Late st Contact Info) Description 06/18/2017 11:00 AM EST Office Visit Hematology and Oncology at [facility] [place] [phone] Markel Borjas MD [facility] [place] [address] Neutropenia, unspecified type Social History Tobacco Use [...] 06/18/2017 11:00 AM EST Hematology Outpatient Clinic [facility] Hematology Outpatient Consult Note CC: 60 [...] TOUCH PREP, CLOT SECTION, CORE ??BIOPSY); [OSR# [id number], COLLECTED 06/23/2016, 19 SLIDES]: ?1. ??Normocellular marrow [...] a clonal lymphoproliferative or myeloproliferative disorder (OSR# [id number]) Chromosome analysis on the marrow aspirate revealed [...] working the same job and participating in [employer] patients. Past Medical/Surgical History: 1. Leukopenia -element of neutropenia, as noted above 2. Aortic Stenosis -severe -AVR surgery 3. Hypercholesterolemia 4. Depression 5. Hypertension 6. 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 Extremities: No edema. Labs: Hgb= 13 Cxfb=177 ANC= 0.6 Imaging As above - reviewed [...] PM EDT Office Visit Dermatology at [place] [address] [place] [address] Marek Bonilla MD [address] [facility] [place] [address] 06/05/2024 11:30 AM EST Office [place] [address] Magdalena Peralta MD [facility] [place] [address] documented as of this encounter Visit Diagnoses Diagnosis Neutropenia, unspecified type documented in this encounter Care Teams Underlay Stitcher Relationship Specialty Start Date End Date Deobrah Quiroga APRN PCP - General Family Medicine 03/24/16 02/04/23 documented as of this encounter
--- OUTSIDE RECORDS SUMMARY | 2024-02-22 14:14 | XMS_ITS | Encounter Summary ---
Author Organization [facility] Address [facility] [place] [address] Care Team Providers Care Cardiovascular Sonographer Name Role Phone Deborah Quiroga APRN Primary Care Provider [phone] Reason for Visit * Consultation (Routine) - Closed Specialty Diagnoses / Procedures Referred By Contkrystle t Referred To Contact Rheumatology Diagnoses Positive FRANCISCO (antinuclear antibody) Arthralgia, unspecified joint Sandy Wu APRN [address] [place] [address] [facility] Rheumatology [address] [place] [address] Referral ID Status Reason Start Date Expiration Date V isits Requested Visits Authorized [id number] Closed Consult, Test & Treat PCP Updated and/or Approved 01/01/2022 01/01/2023 6 6 Encounter Details Date Type Department Care Team (Latest Contact Info) Description 01/20/2022 10:00 AM EDT Office [place] [address] Raymond Loredo MD [facility] [address] RHEUMATOLOGY [place] [address] Rosacea; Raynaud's phenomenon without gangrene; [...] can be done locally or here at [facility] documented in this encounter Progress Notes * [...] over radiocarpal or ulnocarpal joints. 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 SJC/TJC 0/0. Hips: Full motion, [...] can be done locally or here at [facility] that the current time is not particularly interested it seems Raymond Loredo MD documented in this encounter Plan of Treatment Upcoming Encounters Date Type Department Care Team (Late st Contact Info) Description 02/22/2024 4:15 PM EDT Office Visit Dermatology at [place] [address] [facility] [place] [address] Marek Bonilla MD [address] [facility] [place] [address] 06/05/2024 11:30 AM EST Office [place] [address] Magdalena Peralta MD [facility] [address] R[place]UMATOLOGY [place] [address] Scheduled Referrals Name Type Priority Associated Diagnoses [...] syndrome documented in this encounter Care Teams Cardiovascular Sonographer Relationship Specialty Start Date End Date Deborah Quiroga APRN PCP - General Family Medicine 03/24/16 02/04/23 documented as of this encounter
--- OUTSIDE RECORDS SUMMARY | 2024-02-22 14:14 | XMS_ITS | Encounter Summary ---
[place] [address] Care Team Providers Care Parts Order And Stock Clerk Name Role Phone Deborah Quiroga APRN Primary Care Provider [phone] Encounter Details Date Type Department Care Team (Late st Contact Info) Description 06/05/2021 Interpretation Only [address] [phone] Deborah Quiroga APRN [address] [address] Social History Tobacco Use Types Packs/Day Years [...] PM EDT Office Visit Dermatology at [address] [place] [address] Marek Bonilla MD [address] [facility] [place] [address] 06/05/2024 11:30 AM EST Office [place] [address] Magdalena Peralta MD [facility] [place] [address] documented as of this encounter Procedures Procedure Name Priority Date/Time Associated Diagnosis Comments MAMMO SCREENING CAD BILATERAL Routine 06/05/2021 11:42 AM EDT documented in this encounter Results * Mammo Screening Cad Bilateral (06/05/2021 11:42 AM EDT) PT CLASS O DH RAD ADMITDTTM DH RAD PT DH RAD MD INFO [id number]^EV ERETT^DEBORAH^E DH RAD EXAM DESC MADDSC^SCREEN MAMMO [...] who have questions please contact the health respite care provider that requested your imaging first. ? Electronically signed by: Rocael Villatoro MD, [facility] ([phone]), at 06/05/2021 1:27 PM Narrative 06/05/2021 1:27 [...] patients who have questions please contactthe health respite care provider that requested your imaging first. Electronically signed by: Rocael Villatoro MD, [facility]([phone]), at 06/05/2021 1:27 PM Deborah Quiroga APRN IMG MAMMO ORDERABLE S documented in this encounter Visit Diagnoses Not on filedocumented in this encounter Care Teams Parts Order And Stock Clerk Relationship Specialty Start Date End Date Deborah Quiroga APRN PCP - General Family Medicine 03/24/16 02/04/23 documented as of this encounter
--- OUTSIDE RECORDS SUMMARY | 2024-02-22 14:14 | XMS_ITS | Encounter Summary ---
Author Organization [facility] [place] [address] Care Team Providers Care Nurse Examiner Name Role Phone Deborah Quiroga APRN Primary Care Provider [phone]- [phone] Encounter Details Date Type Department Care Team (Late st Contact Info) Description 06/08/2022 Ancillary Procedure [place] [address] Deborah Quiroga SENIOR QUALITY MANAGER [address] [address] Social History Tobacco Use Types Packs/Day Years [...] PM EDT Office Visit Dermatology at [address] [place] [address] Marek Bonilla MD [address] [facility] DERMATOLOGY [place], [place] [address] 06/05/2024 11:30 AM EST Office Visit [place] [address] Magdalena Peralta MD [facility] [place] [address] documented as of this encounter Procedures Procedure Name Priority Date/Time Associated Diagnosis Comments FILM LIBRARY STORAGE ONLY DX SPINE Routine 06/08/2022 12:00 AM EST documented in this encounter Results * Film Library- Storage Only DX Spine (06/08/2022 12:00 AM EST) Narrative [facility] - 06/18/2022 10:57 AM EST This exam is auto-finalizing. It's purpose is for storage only. Deborah Quiroga APRN IMGerman FILM LIBRARY OR DERABLES Performing Organization Address City/State/[facility] Co de Phone Number [place], [place] documented in this encounter Visit Diagnoses Not on filedocumented in this encounter Care Teams Nurse Examiner Relationship Specialty Start Date End Date Deborah Quiroga APRN PCP - General Family Medicine 03/24/16 02/04/23 documented as of this encounter
--- OUTSIDE RECORDS SUMMARY | 2024-02-22 14:14 | XMS_ITS | Encounter Summary ---
Author Organization [facility] Address [facility] [address] Care Team Providers Care Front Office Director Name Role Phone Ashley Quirogazac Shields APRN Primary Care Provider [phone] Encounter Details Date Type Department Care Team (Late st Contact Info) Description 10/20/2016 11:20 AM EDT Office [place] [address] Alirio Esparza MD [facility] [place] [address] S/P AVR Social History Tobacco Use Types [...] all of her postoperative tests done at [facility]. Her echo shows a well-seated valve. Her EF, for some reason, was read as in the 45% to 50% range. She had a normal EF to start. I think that will need to be repeated at [facility]. She has no perivalve leak. Her [...] should continue to see Dr. Burrell, her commercial finance manager at [facility]. cc: Dr. Burrell documented in this encounter Plan of Treatment Upcoming Encounters Date Type Department Care Team (Late st Contact Info) Description 02/22/2024 4:15 PM EDT Office Visit Dermatology at [address] [place] [address] Marek Bonilla MD [address] [facility] [place] [address] 06/05/2024 11:30 AM EST Office [place] [address] Mgadalena Peralta MD [facility] [place] [address] documented as of this encounter Visit Diagnoses Diagnosis S/P AVR Heart valve replaced by other means documented in this encounter Care Teams Front Office Director Relationship Specialty Start Date End Date Deborah Quiroga APRN PCP - General Family Medicine 03/24/16 02/04/23 documented as of this encounter
--- OUTSIDE RECORDS SUMMARY | 2024-02-22 14:14 | XMS_ITS | Encounter Summary ---
[place] [address] Care Team Providers Care Ceramic Designer Name Role Phone Ashley Quirogan Cornelius ANURAG Primary Care Provider [phone] Reason for Visit * Reason Comments Acrochordon Rosacea Encounter Details Date Type Department Care Team (Late st Contact Info) Description 12/05/2020 3:00 PM EDT Office Visit Dermatology at [address] [phone] Marek Bonilla MD [address] [facility] DERMATOLOGY [place], [place] [address] Inflamed acrochordon Social History Tobacco Use Types [...] 4:15 PM EDT Office Visit Dermatology at [place] [address] [facility] [place] [address] Marek Bonilla MD [address] [facility] [place] [address] 06/05/2024 11:30 AM EST Office [place] [address] Magdalena Peralta MD [facility] [place] [address] documented as of this encounter Visit Diagnoses Diagnosis Inflamed acrochordon Unspecified hypertrophic and atrophic condition of skin documented in this encounter Care Teams Ceramic Designer Relationship Specialty Start Date End Date Deborah Quiroga APRN PCP - General Family Medicine 03/24/16 02/04/23 documented as of this encounter
--- OUTSIDE RECORDS SUMMARY | 2024-02-22 14:14 | XMS_ITS | Encounter Summary ---
Author Organization [facility] Address [facility] [place] [address] Care Team Providers Care Compliance Testing Analyst Name Role Phone Junaid Deborah Shields APRN Primary Care Provider [phone] Reason for Visit * Reason Comments Schedule Office Case Pain right leg Encounter Details Date Type Department Care Team (Late st Contact Info) Description 12/11/2016 9:00 AM EDT Office Visit Hematology and Oncology at [facility] [place] [address] Markel Borjas MD [facility] [place] [address] Neutropenia, unspecified type Social History Tobacco Use [...] 12/11/2016 9:00 AM EDT Hematology Outpatient Clinic [facility] Hematology Outpatient Consult Note CC: 60 year [...] TOUCH PREP, CLOT SECTION, CORE ??BIOPSY); [OSR# [id number], COLLECTED 06/23/2016, 19 SLIDES]: ?1. 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 Extremities: No edema. Labs: Hgb= 13 Ykwp=415 ANC= 0.5 Imaging As above - reviewed [...] 4:15 PM EDT Office Visit Dermatology at [place] [address] [place] [address] Marek Bonilla MD [address] [facility] [place] [address] 06/05/2024 11:30 AM EST Office [place] [address] Magdalena Peralta MD [facility] [place] [address] documented as of this encounter Results * [...] panel (non-fasting) (06/11/2017 1:19 PM EST) Pathologist [facility] BUN 13 7 - 18 EXTERNAL LAB [...] type documented in this encounter Care Teams Compliance Testing Analyst Relationship Specialty Start Date End Date Deborah Quiroga, MULTI PUNCH OPERATOR PCP - General Family Medicine 03/24/16 02/04/23 documented as of this encounter
--- OUTSIDE RECORDS SUMMARY | 2024-02-22 14:15 | XMS_ITS | Encounter Summary ---
Author Organization [facility] Address [facility] [place] [address] Care Team Providers Care Freelance Web Designer Name Role Phone Deborah Quiroga APRN Primary Care Provider Encounter Details Date Type Department Care Team (Late st Contact Info) Description 07/17/2016 9:00 AM EST Office Visit Hematology and Oncology at [facility] [place] [phone] Markel Borjas MD [facility] [place] [address] Neutropenia, unspecified type Social History Tobacco Use [...] 07/17/2016 9:00 AM EST Hematology Outpatient Clinic [facility] Hematology Outpatient Consult Note CC: 60 year [...] TOUCH PREP, CLOT SECTION, CORE ??BIOPSY); [OSR# [id number], COLLECTED 06/23/2016, 19 SLIDES]: ?1. 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 Labs will be drawn at [facility] next week Imaging As above - [...] leukopenia. Will consi kanwal talking to pt's chemical preparer about a switch from ACEI to ARB [...] the original note were not included. N [facility] [place] [address] Date: 07/17/16 Patient Name: Purnima Thacker : 1955 Diagnosis: neutropenia Referral to [site]: [facility] Orders: ? Labs: Fax results to . [x] Draw CBC, copper level, CMV PCR, mononucleosis screen on 07/20 Repeat CBC on 07/30 (to measure response of WBC after Neulasta) ? Growth factor: [x] Neulasta 6mg SQ injection x 1 on 07/20/2016 Signature: Markel Borjas MD beeper # [id number] documented in this encounter Plan of Treatment Upcoming Encounters Date Type Department Care Team (Late st Contact Info) Description 02/22/2024 4:15 PM EDT Office Visit Dermatology at [address] [place] [address] Marek Bonilla MD [address] DERMATOLOGY [place], [place] [id number] 06/05/2024 11:30 AM EST Office [place] [address] Magdalena Peralta MD [address] [place] [address] documented as of this encounter [...] Address [facility] Co de Phone Number EXTERNAL LAB * Mononucleosis Screen (07/20/2016 10:30 AM EST) Pathologist [facility] [place] Screen neg neg - neg EXTERNAL LAB Blood specimen (specimen) 07/20/2016 10:30 AM EST Markel Borjas MD CHEMISTRY ORDERABL ES Performing Organization Address [facility] Co de Phone Number EXTERNAL LAB * Copper, serum (07/20/2016 10:30 AM EST) Pathologist [facility] Copper 1.09 0.75 - 1.45 EXTERNAL LAB Blood specimen (specimen) 07/20/2016 10:30 AM EST Markel Borjas MD CHEMISTRY ORDERABL ES Performing Organization Address [facility] Co de Phone Number EXTERNAL LAB * CMV PCR, Quantitative (07/20/2016 10:30 AM EST) Pathologist [facility] CMV PCR,Quantitati ve undetected EXTERNAL LAB Blood specimen (specimen) 07/20/2016 10:30 AM EST Markel Borjas MD IMMUNOLOGY ORDERAB LES Performing Organization Address City/[facility]/ZIP Co de Phone Number EXTERNAL LAB * [...] type documented in this encounter Care Teams Freelance Web Designer Relationship Specialty Start Date End Date Deborah Quiroga, TANNER ROTARY DRUM CONTINUOUS PROCESS PCP - General Family Medicine 03/24/16 02/04/23 documented as of this encounter
--- OUTSIDE RECORDS SUMMARY | 2024-02-22 14:15 | XMS_ITS | Encounter Summary ---
[facility] Organization [facility] [place] [address] Care Team Providers Care Insurance Licensing Supervisor Name Role Phone Deborah Quiroga APRN Primary Care Provider [phone] Encounter Details Date Type Department Care Team (Late st Contact Info) Description 07/31/2016 Orders Only Hematology [place] [address] Alexandrea Greenwood RN Neutropenia, unspecified [...] PM EDT Office Visit Dermatology at [address] [place] [address] Marek Bonilla MD [address] [place] [address] 06/05/2024 11:30 AM EST Office [place] [address] Magdalena Peralta MD [facility] [facility] [address] [place] [address] documented as of this encounter Results * [...] type documented in this encounter Care Teams Insurance Licensing Supervisor Relationship Specialty Start Date End Date Deborah Quiroga APRN PCP - General Family Medicine 03/24/16 02/04/23 documented as of this encounter
--- OUTSIDE RECORDS SUMMARY | 2024-02-22 14:15 | XMS_ITS | Encounter Summary ---
[place] [address] Care Team Providers Care Master In Chancery Name Role Phone Deborah Quiroga ANURAG Primary Care Provider [phone] Reason for Visit * Reason Onset Date Comments Medical Care Coordination 07/31/2016 Encounter Details Date Type Department Care Team (Late st Contact Info) Description 07/31/2016 Telephone [place]ematology [place] [phone] Alexandrea Greenwood RN Medical Care Coordination Social [...] 08/04/15 RN spoke with Aydee of the [facility] lab who states they can draw pt's cbc on 08/04/15, RN faxed lab req to [phone] at Aydee's request. RN instructed pt on Dr. Borjas's direction above. Pt verbalized understanding. documented in this encounter Plan of Treatment Upcoming Encounters Date Type Department Care Team (Late st Contact Info) Description 02/22/2024 4:15 PM EDT Office Visit Dermatology at [place] [address] [place] [address] Marek Bonilla MD [address] [place] [address] 06/05/2024 11:30 AM EST Office [place] [address] Magdalena Peralta MD [facility] [place] [address] documented as of this encounter Visit Diagnoses Not on filedocumented in this encounter Care Teams Master In Chancery Relationship Specialty Start Date End Date Deborah Quiroag APRN PCP - General Family Medicine 03/24/16 02/04/23 documented as of this encounter
--- OUTSIDE RECORDS SUMMARY | 2024-02-22 14:15 | XMS_ITS | Encounter Summary ---
Author Organization [facility] [place] [address] Care Team Providers Care Echocardiograph Tech Name Role Phone Deborah Quiroga APRN Primary Care Provider [phone] Encounter Details Date Type Department Care Team (Late st Contact Info) Description 08/18/2016 4:20 PM EST Clinical [place] [phone] Social History Tobacco Use Types Packs/Day Years [...] 4:15 PM EDT Office Visit Dermatology at [place] [address] [place] [address] Marek Bonilla MD [address] [facility] [place] [address] 06/05/2024 11:30 AM EST Office [place] [address] Magdalena Peralta MD [facility] [place] [address] documented as of this encounter Visit Diagnoses Not on filedocumented in this encounter Care Teams Echocardiograph Tech Relationship Specialty Start Date End Date Deborah Quiroga APRN PCP - General Family Medicine 03/24/16 02/04/23 documented as of this encounter
--- OUTSIDE RECORDS SUMMARY | 2024-02-22 14:15 | XMS_ITS | Encounter Summary ---
Author Organization [facility] [place] [address] Care Team Providers Care Abstract Checker Name Role Phone Deborah Quiroga APRN Primary Care Provider [phone] Encounter Details Date Type Department Care Team (Late st Contact Info) Description 08/18/2016 Orders [place] [phone] Alirio Esparza MD [facility] [address] [place] [address] Aortic valve stenosis, unspecified etiology Social History [...] PM EDT Office Visit Dermatology at [address] [place] [address] Marek Bonilla MD [address] [facility] [place] [address] 06/05/2024 11:30 AM EST Office [place] [address] Magdalena Peralta MD [facility] [place] [place] [address] documented as of this encounter Results * Basic Metabolic Panel (non-fasting) (08/18/2016 4:50 PM EST) Glucose Lvl 82 65 - 199 mg/dL [facility] Comment:Diabetes: >=200 mg/d L plus symptoms BUN 12 8 - 18 mg/dL [facility] Creatinine 0.87 0.70 - 1.20 mg/dL [facility] Comment: Please note that the pediatric reference intervals supplied above were not validated at [facility]. Results from pediatric patients should be interpreted in conjunction to the patient's age, height and muscle mass. Sodium 142 135 - 145 mmol/L [facility] Potassium 3.8 3.5 - 5.0 mmol/L [facility] Comment: Please note: ??Patients with WBC >100,000 may have falsely elevated Potassium levels. ??For accurate Potassium quantification in these patients send serum separator tube (gold top) for subsequent determinations. ??Contact the Clinical Chemistry Laboratory if there are any questions. Chloride 102 98 - 107 mmol/L [facility] CO2 26 22 - 31 mmol/L [facility] Anion Gap 14 5 - 15 mmol/L [facility] Calcium 9.7 8.5 - 10.5 mg/dL [facility] Estimated GFR >60 >=60 [facility] Comment: This estimated GFR (eGFR) [...] the following links into your internet browser. [email or web address] Blood specimen (specimen) 08/18/2016 4:50 PM EST 08/18/2016 5:03 PM EST Narrative Resulting Agency Comment Spec In Lab Alirio Esparza MD CHEMISTRY ORDERABLE S [facility] [place] [address] documented in this encounter Visit Diagnoses Diagnosis Aortic valve stenosis, unspecified etiology documented in this encounter Care Teams Abstract Checker Relationship Specialty Start Date End Date Deborah Quiroga, CHEMICAL PLANT OPERATOR SUPERVISOR PCP - General Family Medicine 03/24/16 02/04/23 documented as of this encounter
--- OUTSIDE RECORDS SUMMARY | 2024-02-22 14:15 | XMS_ITS | Encounter Summary ---
[place] [address] Care Team Providers Care Helper Steel Fabrication Name Role Phone Deborah Quiroga ANURAG Primary Care Provider [phone] Encounter Details Date Type Department Care Team (Late st Contact Info) Description 09/11/2016 Orders Only [place] [address] Alexandrea Greenwood RN Social History [...] the original note were not included. N [facility] ON[facility] [phone] Date: 09/11/16 Patient Name: Onesimo Thacker : 1955 Diagnosis: Neutropenia Referral to [site]: [facility] Orders: ? Growth factor: [x] Neulasta 6mg SQ injection x 1 on 09/16/16 Signature: Markel Borjas MD beeper # [id number] Co-signature [if needed]: documented in this encounter Plan of Treatment Upcoming Encounters Date Type Department Care Team (Late st Contact Info) Description 02/22/2024 4:15 PM EDT Office Visit Dermatology at [place] [address] [place] [address] Marek Bonilla MD [address] [place] [address] 06/05/2024 11:30 AM EST [place] [address] Magdalena Peralta MD [facility] [place] [address] documented as of this encounter Procedures Procedure Name Priority Date/Time Associated Diagnosis Comments TRANSESOPHAGEAL ECHOCARDIOGRAM (GAVINO) Routine 09/22/2016 documented in this encounter Results * Transesophageal Echocardiogram (GAVINO) (09/22/2016) Anatomical Region Laterality Modality Other 09/22/2016 Narrative 09/22/2016 8:30 AM EST Procedure: ?Transesophageal Echocardiogram Patient: ?ANDREW ONESIMO M ? (Age): 1955(61y) Med Rec#: ? [id number] ?Sex: ?M ? Site Loc: ? [facility] ?Ht / Wt: ??(cm)/ (kg) ? Pt. Loc: ?OR ? Study Date: ?? 09/21/2016 ?Pt. Type: Tape: ? 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 AVR for severe Rhythm: ? [...] ? Mid-Inferior ?Normal ? Mid-Inferoseptal ?Normal ? Holden-Septal ? Normal ? Holden-Anterior ? Normal ? Holden-Lateral ?Normal ? Holden-Inferior ? Normal ? Holden-Tip ?Normal ? This report has been electronically signed by: Henrik Yarbrough M.D. ? 09/22/2016 08:30:41 Images reviewed and interpretation verified [facility] Cardiac [facility]ound [facility] Procedure Note Henrik Yarbrough MD - 09/22/2016 Procedure: Transesophageal Echocardiogram Patient: ANDREW Mejias (Age): 1955(61y) Med Rec#: [id number] Sex: M Site Loc: [facility] Ht / Wt: (cm)/ (kg) Pt. Loc: OR Study Date: 09/21/2016 Pt. 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 09/22/2016 08:30:41 Images reviewed and interpretation verified [facility] Unknown ECHO ORDERABLES documented in this encounter Visit Diagnoses Not on filedocumented in this encounter Care Teams Helper Steel Fabrication Relationship Specialty Start Date End Date Deborah Quiroga APRN PCP - General Family Medicine 03/24/16 02/04/23 documented as of this encounter
--- OUTSIDE RECORDS SUMMARY | 2024-02-22 14:15 | XMS_ITS | Encounter Summary ---
[place] [address] Care Team Providers Care Quarry Plug And Feather Driller Name Role Phone Ashley Quirogazac Shields APRN Primary Care Provider [phone] Reason for Visit * Auth/Cert Specialty Diagnoses / Procedures Referred By Crispin t Referred To Contact Diagnoses Aortic stenosis Procedures PRO REPLACE AORT VALV, PROSTH VALV @REPLACE AORTIC VALVE, OPEN, W\CPB, W\PROSTHETIC VALVE (WRVU 41.32) Referral ID Status Reason Start Date Expiration Date Visits Re quested Visits Authorized [id number] 1 1 Encounter Details Date Type Department Care Team (Late st Contact Info) Description 09/21/2016 7:30 AM EST - 09/21/2016 12:04 PM EST [place] [address] Alirio Esparza MD [facility] DR CARDIOTHORACIC [place] [address] @REPLACE AORTIC VALVE, OPEN, W\CPB, W\PROSTHETIC VALVE [...] Patient Age: 61 y.o. Birthdate: 1955 Language: Kenyan Race: White Ethnicity: Not nor Admit Date: 09/21/2016 Discharge Date: 09/25/2016 Attending Physician: Alirio Esparza MD Follow-up Recommendations for Providers: Please continue routine management of cardiovascular risk factors including blood pressure, lipids,glucose, etc. Please note any changes to medications. Patient to follow-up with PCP, Deborah Quiroga APRN, in 1-2 weeks. Patient to follow-up with Supervisor Bottle House Cleaners, Dr. Antelmo Burrell, in two weeks. Patient to follow-up with Cardiac Surgery, Dr. Alirio Esparza, to be scheduled for before 10/19/2016, with CXR, EKG, and Echo. Inpatient Provider Contact Information: [facility] Section of Cardiac Surgery [facility] [address] FAX [phone] Discharge Diagnoses (Hospital Problems) Primary Diagnoses: Secondary [...] @REPLACE AORTIC VALVE, OPEN, W\CPB, W\PROSTHETIC VALVE ([facility] performed by Alirio Esparza MD at [facility] MAIN OR ??? Pro aortoplas for supravalv sten N/A 09/21/2016 @AORTOPLASTY FOR SUPRAVALVULAR STENOSIS (VU 29.33) performed by Alirio Esparza MD at [facility] MAIN [...] Hospital Course: Purnima Thacker was admitted to [facility] on 09/21/2016 via the Same Day [...] Alirio Esparza and/or the Cardiac Surgery Physician Corporate Development Associate Team may be reached at . Antibiotic prophylaxis: You will need to take antibiotics prior to many invasive tests and treatments, such as dental cleaning, which should be done every 6 months. Your primary care physician or your dentist can prescribe this medication. Please refer to the card with the [place] [employer] Guidelines for more information. You have been provided with 3 copies of this card. Keep one for your self. Give one to your primary care physician and one to your dentist. Please refer to the [place] [employer] Guidelines for more information. Good [...] Dr. Alirio Jones. You may use a [place] Track or treadmill but avoid any pulling [...] friends, go to a movie, go to zoroastrianism, etc. Heavy activities: No hunting, skiing, jogging, [...] should resume a low fat, low cholesterol, [place] [employer] Diet. Driving: No driving until [...] outpatient Phase 2 Cardiac Rehabilitation at [facility]. The patient agrees to a referral to this program. The referral will be sent at discharge and the patient should be contacted by the program within 1- 2 weeks from discharge. Future Appointments and Orders Future Appointments Provider Department Dept Phone 11/20/2016 11:30 AM Markel Borjas MD [facility] [phone] Future Orders Complete By Expires Echocardiogram Transthoracic([facility]) [NKP630 Custom] 10/18/2016 (Approximate) 09/18/2017 Process Instructions: If the Echocardiogram is to be PERFORMED in a location other than [place]--STOP and order [id number], Echocardiogram South/External. Scheduling Instructions: Questions: Is a Bubble Study requested?: No Does the patient have Congenital Heart Disease?: No Does patient require sedation?: None GA rationale: Should this service be billed to the research sponsor?: EKG 12 Lead [EKG1 Custom] 10/18/2016 (Approximate) 09/25/2017 Process Instructions: Scheduling Instructions: Questions: Which location will this be performed?: [place] Is a rhythm strip needed?: No If EKG Reason is Pre-op Evaluation, indicate diagnosis for surgery.: Should this service be billed to the research sponsor?: XR Chest PA & Lateral (Generic) [[id number] Custom] 10/18/2016 (Approximate) 09/25/2017 Process Instructions: Scheduling Instructions: Questions: Where will study be performed?: [facility]- Radiology Portable exam?: No Reason for exam and clinical history: s/p AVReplacement, patch annuloplasty 1 month f/u Other pertinent information: Stat read required?: Date of injury if applicable: Requested Time: Referral to Cardiac Rehab [KYA226 Custom] As directed Process Instructions: If no progress note charted, please enter Clinical details in comments. Scheduling Instructions: Questions: My question or request is: s/p AVR. Cardiac rehab at [facility] Referral to Home Health - at DISCHARGE [XMJ8099 CPT(R)] As directed Process Instructions: Scheduling Instructions: Comments: DOCUMENTATION FOR VNA SERVICES (INCLUDING THOSE PATIENTS WITH MEDICARE COVERAGE REQUIRING HOME VNA SERVICES AND/OR HOSPICE SERVICES) PATIENT'S LOCATION: Purnima M Kirstie [address] [place] [phone] (home) No relevant phone numbers on file. Seed Specialist's Name: self In discussion with the attending physician, it is certified that this patient is under their care and that they, or a Nurse Practitioner, or Physician Corporate Development Associate who is working directly with them, hada [...] for services as follows: HOME HEALTH AGENCY: [facility] PHONE: [phone] FAX: [phone] RN orders: Cardiopulmonary assessment, incisional assessment, assess [...] issues please call the Cardiac SurgeryOffice at [phone] FOR MEDICARE ONLY: In discussion with the [...] noted. Questions: Agency name and contact information: [facility] VNA Patient location post discharge: home What services are requested: Registered Nurse Physical Therapy Occupational Therapy Start date: Responsible MD post discharge contact info: Arrangements for VNA/home care: As above. VN RN OR PCP TO PLEASE REMOVE CHEST TUBE SUTURES ON OR AFTER 09/30/16 Signed: Crispin Aranda PA-C 09/25/2016 [facility] Section of Cardiac Surgery [facility] [address] FAX [phone] Date: 09/25/2016 CC: ANURAG Alford Caryn E, APRN [address] [place] [address] documented in this encounter Discharge Instructions * [...] Alirio Esparza and/or the Cardiac Surgery Physician Corporate Development Associate Team may be reached at . Antibiotic prophylaxis: You will need to take antibiotics prior to many invasive tests and treatments, such as dental cleaning, which should be done every 6 months. Your primary care physician or your dentist can prescribe this medication. Please refer to the card with the [place] [employer] Guidelines for more information. You have been provided with 3 copies of this card. Keep one for your self. Give one to your primary care physician and one to your dentist. Please refer to the [place] [employer] Guidelines for more information. Good [...] Dr. Alirio Jones. You may use a [place] Track or treadmill but avoid any pulling [...] friends, go to a movie, go to zoroastrianism, etc. Heavy activities: No hunting, skiing, jogging, [...] should resume a low fat, low cholesterol, [place] [employer] Diet. Driving: No driving until [...] outpatient Phase 2 Cardiac Rehabilitation at [facility]. The patient agrees to a referral [...] PM EST Cardiac Surgery Progress Note: ID: [id number] S/p AVR, patch aortoplasty POD#2. PMH of [...] Gas) No results found for: PHART, PO2ART, WUL5PIA Assessment/Plan: TPW out this am. (+) BM. [...] Signed: Crispin Aranda PA-C 09/24/2016 Team pager: [phone] after 5pm [facility] Section of Cardiac Surgery * Leonor Henson S, BOTANY TECHNICIAN - 09/23/2016 10:48 AM EST Cardiac Surgery Progress Note: ID: [id number] s/p AVR, patch aortoplasty POD#2. PMH of [...] Gas) No results found for: PHART, PO2ART, IVF6RKL Assessment/Plan: s/p AVR, patch aortoplasty POD#2. PMH of Neutropenia, HLD, HTN, Depression, obesity, . Transferred from [facility] yesterday and doing well. Pathway. [...] Surgeon on rounds. Signed: Leonor Henson APRN [facility] Section of Cardiac Surgery Date: 09/23/2016 * Nico Palacios PA - 09/22/2016 9:56 AM EST Cardiac Surgery Progress Note: ID: [id number] s/p AVR, patch aortoplasty POD#1. PMH of [...] NT, ND, soft. Ext: Moves all extremities. [place], well perfused. Incisions: C/D/I Tubes/Lines/Drains: PIV, leanna, [...] Attending Surgeon on rounds. Signed: EKATERINA KIM [facility] Section of Cardiac Surgery Date: 09/22/2016 [...] Outcome (s) achieved Date Met: 09/25/16 09/25/16 9141 Coping/Psychosocial Plan Of Care Reviewed With patient [...] with outpatient services Lalitha Cohen SPTA Pager: [phone] Inpatient Physical Therapy Patient status, treatment interventions, and goals discussed with student. I am in agreement with all details and associated flowsheet rows as documented and was present for all aspects of the patient treatment session. Nery Jaramillo PTA Pager [phone] Problem: Acute Rehab Services Goal & Intervention Plan Goal: Bed Mobility Goal Stand Alone Therapy Goal Outcome: Ongoing (Interventions Implemented as Appropriate) 09/22/16 1611 09/25/16 0947 Bed Mobility Goal Bed Mobility Goal, Time to Achieve 4 days -- Bed Mobility Goal, Activity Type scoot/bridge;supine to sit/sit to supine -- Bed Mobility Goal, Appling Level independent -- Bed Mobility Goal, Additional [...] Achieve 4 days -- Gait Training Goal, App[place] Level independent -- Gait Training Goal, Distance [...] * Plan of Care - Nery Jaramillo PROJECT OFFICER - 09/23/2016 2:23 PM EST Problem: Patient [...] home with home health Lalitha Radha [facility] Pager: [phone] Inpatient Physical Therapy Patient status, treatment interventions, and goals discussed with student. I am in agreement with all details and associated flowsheet rows as documented and was present for all aspects of the patient treatment session. Nery Jaramillo PTA Pager [phone] Problem: Acute Rehab Services Goal & Intervention Plan Goal: Bed Mobility Goal Stand Alone Therapy Goal Outcome: Ongoing (Interventions Implemented as Appropriate) 09/22/16161009/23/161411 Bed Mobility Goal Bed Mobility Goal, Time to Achieve 4 days -- Bed Mobility Goal, Activity Type scoot/bridge;supine to sit/sit to supine -- Bed Mobility Goal, [place] Level independent -- Bed Mobility Goal, Additional [...] Achieve 4 days -- Gait Training Goal, [place] Level independent -- Gait Training Goal, Distance [...] days -- Transfer Training Goal, Activity Type fym-fg-zmnab/mwesx-lz-yay;rme-jc-ksbve/czvfv-lq-miz -- Transfer Train Goal, App[place] Level independent -- Transfer Training Goal, Additional Goal abides sternal precautions -- Transfer Training Goal, Outcome -- goal met * Consult Note - Jana Crenshaw RN - 09/23/2016 9:41 AM EST [facility] Purnima Thacker was seen today regarding participation in the outpatient Phase 2 Cardiac Rehabilitation at [facility]. The patient agrees to a referral [...] Another Service: (cardiac rehab) NICOLE HERNANDEZ, PT Pager:[phone] Inpatient Physical Therapy Problem: Acute Rehab Services Goal & Intervention Plan Goal: Bed Mobility Goal Stand Alone Therapy Goal Outcome: Ongoing (Interventions Implemented as Appropriate) 09/22/16 1611 Bed Mobility Goal Bed Mobility Goal, Time to Achieve 4 days Bed Mobility Goal, Activity Type scoot/bridge;supine to sit/sit to supine Bed Mobility Goal, App[place] Level independent Bed Mobility Goal, Additional Goal able to abide sternal precautions during transfers Goal: Gait Training Goal Stand Alone Therapy Goal Outcome: Ongoing (Interventions Implemented as Appropriate) 09/22/16 1611 Gait Training Goal Gait Training Goal, Date Established 09/22/16 Gait Training Goal, Time to Achieve 4 days Gait Training Goal, [place] Level independent Gait Training Goal, Distance to Achieve ascend and descends 2 steps independently Goal: Goal Transfer Training Stand Alone Therapy Goal Outcome: Ongoing (Interventions Implemented as Appropriate) 09/22/16 1611 Goal Transfer Training Transfer Training Goal, Time to Achieve 4 days Transfer Training Goal, Activity Type qox-fx-mbyti/uvjtj-jn-tif;bop-bi-olvlt/fokod-iy-ctm Transfer Train Goal, App[place] Level independent Transfer Training Goal, Additional Goal [...] of completing AD's at home, chooses her bxuozl-hp-byq, Martha Thacker (home) for her DPOAH, 2nd choice in friend, Nitesh Leroy, [place], [place] Current Coping/Education/Information Needs: patient sitting up [...] close by, Rashad & Raymond, and her irqvkr-ai-kbp Martha Thacker who she has chosen to be her DPOAH. Also has a friend Nitesh Leroy who lives in [place], [place], also her DPOAH choice. Behavioral Health History: none on file in [facility] Substance Use/Abuse: none on file in [facility] Other Pertinent/Service Specific Information: none Health/Prescription Coverage: Primary Insurance: [employer] Secondary Insurance: none Prescription Coverage: yes, per patient no issues Preferred Pharmacy: ?? Other: none Primary Care Provider: Deborah Quiroga, BOTANY TECHNICIAN [phone] Patient/Caregiver Goals of Treatment: per medical team recommendations at discharge for CT surgery Potential Needs for Transition of Care: Rehab/SNF: TBD Home Health: TBD DME: no Dialysis: no Community Resources: non3 Transportation: ride home with a friend Other: none Anticipated Barriers to Discharge/Special Considerations: none anticipated at this time Plan: patient will need VNA services at discharge. The patient/cash posting representative has been provided a list of Home Health Agencies/DME vendors which servetheir preferred geographic area. A letter describing our affiliations was reviewed with them and they were educated about their right to choose where referrals are placed. Patient requests referral to: [facility] Agent Panda. PHONE: [phone] FAX: [phone] Expected date of discharge: Fri/Sat? CM called VNA to confirm referral, talked with VALDO Bunn/intake who stated she was familiar w/patient & would monitor her progress through curaspan. Referral routed to the Piping Engineer for matching with agency/vendor and to provide any required information. A member of the Care Management team will continue to monitor progress, follow for continuity of care and assist with transition of care planning. Amanda Moreno RN Pager: [phone] * Op Note - Alirio Esparza MD - 09/21/2016 12:53 PM EST 09/23/2016 Purnima Thacker 1955 [id number] Preoperative Diagnosis: Symptomatic aortic stenosis Postoperative Diagnosis: Symptomatic aortic stenosis Procedure: Aortic valve replacement: Bovine Pericardial 25 mm Surgeon: Alirio Esparza M.D. Corporate Development Associate: Philip BALL Anesthesia: General endotracheal anesthesia Drains: [...] applied. The patient was transported to the [facility] on levo. All counts were correct. * OR Attestation - Alirio Esparza MD - 09/21/2016 12:19 PM EST Attestation: Case Date: 09/21/2016 I was present and I participated during the entire procedure (does not need to include opening and closing). ALIRIO ESPARZA MD 09/21/2016 * Brief Op Note - Alriio Esparza MD - 09/21/2016 12:19 PM EST Brief Operative Note Patient Name: Purnima Thacker : [id number] MR#: [id number] Case Date: 09/21/2016 Surgeon: Surgeon(s) and Role: * Alirio Esparza MD - Primary * Nico Palacios PA - Physician Corporate Development Associate Preoperative diagnosis: Postoperative diagnosis: Procedure(s) (LRB): @REPLACE [...] 4:15 PM EDT Office Visit Dermatology at [place] [address] [place] [address] Marek Bonilla MD [address] [facility] [place] [address] 06/05/2024 11:30 AM EST Office [place] [address] Magdalena Peralta MD [facility] [place] [address] Scheduled Orders Name Type Priority Associated Diagnoses [...] IMPLANTABLE DEVICES SCAN 09/26/2016 12:00 AM EST CONSULTING NETWORKING ENGINEER SCAN 09/26/2016 12:00 AM EST POTASSIUM Routine [...] Routine 09/22/2016 4:00 AM EST CARDIAC ENZYMES ([facility]) Routine 09/22/2016 4:00 AM EST CREATININE Routine [...] SCAN EXT O RDR/RSLT * SCAN DOC: CONSULTING NETWORKING ENGINEER (09/26/2016 12:00 AM EST) Anatomical Region Laterality Modality Other Narrative 09/26/2016 12:00 AM EST Ordered by an unspecified provider. Scanning Provider MEDIA MGR SCAN EXT O RDR/RSLT * Potassium (09/25/2016 4:32 AM EST) Potassium 4.4 3.5 - 5.0 mmol/L [facility] Comment: Please note: ??Patients [...] Organization Address City/State/[place] Co de Phone Number [facility] [place] [address] * (ABNORMAL) Differential, Automated (09/24/2016 9:56 AM EST) Pathologist [facility] Neutrophils % 76.8 % [facility] Neutr Abs (ANC) 7.79(H) 1.70 - 6.10 x10(3)/mc L [facility] Lymphocytes % 11.1 % [facility] Lymphocytes Abs 1.1 0.9 - 3.2 x10(3)/mc L [facility] Monocytes % 8.5 % [facility] Monocyte Abs 0.9 0.3 - 0.9 x10(3)/mc L [facility] Eosinophils % 0.5 % [facility] Eosinophils Abs 0.0 0.0 - 0.4 x10(3)/mc L [facility] Basophils % 0.2 % [facility] Basophils Abs 0.0 0.0 - 0.1 x10(3)/mc L [facility] Immature Gran % 2.90 % [facility] Comment: Immature granulocytes(IG's)percentage and absolute count will include metamyelocytes, myelocytes, and promyelocytes. Blood smears from CBCs yielding IG's will be scanned manually for concordance. If this scan disagrees with the automated IG or if promyelocytes are noted, a manual differential will be performed. Amanda Gran Abs 0.29(H) 0.00 - 0.04 x10(3)/ L [facility] Blood specimen (specimen) 09/24/2016 9:56 AM EST 09/24/2016 10:04 AM EST Narrative Resulting Agency Comment Spec In Lab Alirio Esparza MD HEMATOLOGY ORDERABL ES [facility] [place] [address] * (ABNORMAL) Hemogram (09/24/2016 9:56 AM EST) WBC 10.1(H) 4.0 - 9.5 x10(3)/[facility] RBC 2.87(L) 4.00 - 5.21 x10(6)/[facility] Hemoglobin 9.4(L) 11.7 - 15.5 gm/dL [facility] Hematocrit 28.3(L) 35.7 - 45.8 % [facility] MCV 98.6(H) 82.6 - 94.4 fL [facility] MCH 32.8(H) 27.1 - 32.0 pg [facility] MCHC 33.2 31.7 - 35.0 gm/dL [facility] Platelets 141(L) 145 - 357 x10(3)/[facility]ORATORY RDWSD 45.0 37.0 - 46.0 [facility] RDWCV 12.6 11.5 - 14.1 % [facility] MPV 9.4 7.6 - 12.9 [facility] nRBC % Auto 1.1 % [facility] nRBC Abs Auto 0.110(H) 0.000 - 0.000 x10(3)/[facility] Blood specimen (specimen) 09/24/2016 9:56 AM EST 09/24/2016 10:04 AM EST Narrative Resulting Agency Comment Spec In Lab Alirio Esparza MD HEMATOLOGY ORDERABL ES [facility] [place] [address] * (ABNORMAL) Basic Metabolic Panel (non-fasting) (09/24/2016 9:56 AM EST) Glucose Lvl 111 65 - 199 mg/dL [facility] Comment:Diabetes: >=200 mg/d L plus symptoms BUN 23(H) 8 - 18 mg/dL [facility] Comment:result rechecked-ART Creatinine 0.89 0.70 - 1.20 mg/dL [facility] Comment: Please note that the pediatric reference intervals supplied above were not validated at [facility]. Results from pediatric patients should be interpreted in conjunction to the patient's age, height and muscle mass. Sodium 138 135 - 145 mmol/L [facility] Potassium 4.2 3.5 - 5.0 mmol/L [facility] Comment: Please note: ??Patients with WBC >100,000 may have falsely elevated Potassium levels. ??For accurate Potassium quantification in these patients send serum separator tube (gold top) for subsequent determinations. ??Contact the Clinical Chemistry Laboratory if there are any questions. Chloride 98 98 - 107 mmol/L [facility] CO2 26 22 - 31 mmol/L [facility] Anion Gap 14 5 - 15 mmol/L [facility] Calcium 9.1 8.5 - 10.5 mg/dL [facility] Estimated GFR >60 >=60 [facility] Comment: This [...] the following links into your internet browser. [email or web address] Blood specimen (specimen) 09/24/2016 9:56 AM EST 09/24/2016 10:04 AM EST Narrative Resulting Agency Comment Spec In Lab Alirio Esparza MD CHEMISTRY ORDERABLE S [facility] [place] [id number] * XR Chest PA & Lateral (Generic) [...] EST) Potassium 4.5 3.5 - 5.0 mmol/L [facility] Comment: Please note: ??Patients [...] MD CHEMISTRY ORDERABLE S Performing Organization Address City/[facility]/[place] Co de Phone Number [facility] [place] [address] * POCT Glucose (09/22/2016 8:17 AM EST) [facility] Signature POC Glucose 131 65 - 199 mg/dL [facility] Comment: Supplemental ranges: <140 mg/dL before meals <180 mg/dL all other times of the day Blood specimen (specimen) 09/22/2016 8:17 AM EST 09/22/2016 8:17 AM EST Alirio Esparza MD POINT OF CARE TEST ORDERABLES Performing Organization Address [facility]/[place] Co de Phone Number [facility] [place] [address] * POCT Glucose (09/22/2016 4:01 AM EST) [facility] Signature POC Glucose 135 65 - 199 mg/dL [facility] Comment: Supplemental ranges: <140 mg/dL before meals <180 mg/dL all other times of the day Blood specimen (specimen) 09/22/2016 4:01 AM EST 09/22/2016 4:01 AM EST Alirio Esparza MD POINT OF CARE TEST ORDERABLES Performing Organization Address City/[facility]/[place] Co de Phone Number [facility] [place] [address] * Scan, Peripheral Blood (09/22/2016 4:00 AM EST) Plat Estimate Normal [facility] RBC Morphology Abnormal [facility] Macrocytes 1-5 /HPF [facility] Giant Platelets Less than 1 /HPF [facility] Blood specimen (specimen) 09/22/2016 4:00 AM EST 09/22/2016 4:34 AM EST Narrative Resulting Agency Comment Spec In Lab Alirio Esparza MD HEMATOLOGY ORDERABL ES Performing Organization Address [facility]/[place] Co de Phone Number [facility] [place] [address] * Electrolytes panel (09/22/2016 4:00 AM EST) Pathologist [facility] Sodium 145 135 - 145 mmol/L [facility] Potassium 4.4 3.5 - 5.0 mmol/L [facility] Comment: Please note: ??Patients with WBC >100,000 may have falsely elevated Potassium levels. ??For accurate Potassium quantification in these patients send serum separator tube (gold top) for subsequent determinations. ??Contact the Clinical Chemistry Laboratory if there are any questions. Chloride 107 98 - 107 mmol/L [facility] CO2 24 22 - 31 mmol/L [facility] Anion Gap 14 5 - 15 mmol/L [facility] Blood specimen (specimen) Venous Draw / Unknown 09/22/2016 4:00 AM EST 09/22/2016 4:34 AM EST Narrative Resulting Agency Comment Spec In Lab Alirio Esparza MD CHEMISTRY ORDERABLE S Performing Organization Address City/[facility]/ZIP Co de Phone Number [facility] [place] [address] * (ABNORMAL) Differential, Automated (09/22/2016 4:00 AM EST) Neutrophils % 70.9 % [facility] Neutr Abs (ANC) 5.33 1.70 - 6.10 x10(3)/mc L [facility] Lymphocytes % 9.1 % [facility] Lymphocytes Abs 0.7(L) 0.9 - 3.2 x10(3)/[facility] Monocytes % 18.0 % [facility] Monocyte Abs 1.4(H) 0.3 - 0.9 x10(3)/[facility] Eosinophils % 0.0 % [facility] Eosinophils Abs 0.0 0.0 - 0.4 x10(3)/[facility] Basophils % 0.1 % [facility] Basophils Abs 0.0 0.0 - 0.1 x10(3)/[facility] Immature Gran % 1.90 % [facility] Comment: Immature granulocytes(IG's)percentage and absolute count will include metamyelocytes, myelocytes, and promyelocytes. Blood smears from CBCs yielding IG's will be scanned manually for concordance. If this scan disagrees with the automated IG or if promyelocytes are noted, a manual differential will be performed. Amanda Gran Abs 0.14(H) 0.00 - 0.04 x10(3)/[facility] Blood specimen (specimen) 09/22/2016 4:00 AM EST 09/22/2016 4:34 AM EST Narrative Resulting Agency Comment Spec In Lab Alirio Esparza MD HEMATOLOGY ORDERABL ES [facility] [place] [address] * (ABNORMAL) Hemogram (09/22/2016 4:00 AM EST) WBC 7.5 4.0 - 9.5 x10(3)/[facility] RBC 2.93(L) 4.00 - 5.21 x10(6)/[facility] Hemoglobin 9.2(L) 11.7 - 15.5 gm/dL [facility] Hematocrit 28.0(L) 35.7 - 45.8 % [facility] MCV 95.6(H) 82.6 - 94.4 fL [facility] MCH 31.4 27.1 - 32.0 pg [facility] MCHC 32.9 31.7 - 35.0 gm/dL [facility] Platelets 161 145 - 357 x10(3)/[facility]ATORY RDWSD 44.0 37.0 - 46.0 fL [facility] RDWCV 12.6 11.5 - 14.1 % [facility] MPV 9.3 7.6 - 12.9 fL [facility] nRBC % Auto 0.3 % [facility] nRBC Abs Auto 0.020(H) 0.000 - 0.000 x10(3)/[facility] Blood specimen (specimen) 09/22/2016 4:00 AM EST 09/22/2016 4:34 AM EST Narrative Resulting Agency Comment Spec In Lab Alirio Esparza MD HEMATOLOGY ORDERABL ES [facility] [place] [address] * (ABNORMAL) Cardiac Enzymes (09/22/2016 4:00 AM EST) Troponin-T 0.13(H) <=0.03 ng/mL [facility] Comment: 0.03 ng/mL: Represents the 99th percentile upper reference limit for normals. >0.03 ng/mL: Elevated cardiac troponin T level indicative of myocardial damage. Diagnosis of acute, evolving or recent [place] requires a typical rise and gradual fall [...] consensus document of the Joint Society of Cardiology/[place] [employer]iology Committee for the redefinition of myocardial infarction. ??Journal of the [place] College [employer]iology 2000; 36: 959-969] CK, Total 338(H) 0 - 160 unit/L [facility] Blood specimen (specimen) 09/22/2016 4:00 AM EST 09/22/2016 4:34 AM EST Narrative Resulting Agency Comment Spec In Lab Alirio Esparza MD CHEMISTRY ORDERABLE S Performing Organization Address [facility] Co de Phone Number [facility] [place] [address] * (ABNORMAL) Glucose, fasting (09/22/2016 4:00 AM EST) Glucose Fasting 137(H) 65 - 99 mg/dL [facility] Comment: ?Fasting* Glucose Interpretive [...] of Diabetes Mellitus, Position Statement from the [place] [employer] Association. ??Diabetes Care, Volume 33, Supplement 1, Aug 2009 Blood specimen (specimen) 09/22/2016 4:00 AM EST 09/22/2016 4:34 AM EST Narrative Resulting Agency Comment Spec In Lab Alirio Esparza MD CHEMISTRY ORDERABLE S Performing Organization Address [facility] Co de Phone Number [facility] [place] [address] * (ABNORMAL) Creatinine (09/22/2016 4:00 AM EST) Creatinine 0.69(L) 0.70 - 1.20 mg/dL [facility] Comment: Please note that the pediatric reference intervals supplied above were not validated at [facility]. Results from pediatric patients should be interpreted in conjunction to the patient's age, height and muscle mass. Estimated GFR >[address] >=60 [facility] Comment: This [...] the following links into your internet browser. [email or web address] Blood specimen (specimen) 09/22/2016 4:00 AM EST 09/22/2016 4:34 AM EST Narrative Resulting Agency Comment Spec In Lab Alirio Esparza MD CHEMISTRY ORDERABLE S Performing Organization Address [facility] Co de Phone Number [facility] [place] [address] * BUN (09/22/2016 4:00 AM EST) BUN 10 8 - 18 mg/dL [facility] Blood specimen (specimen) 09/22/2016 4:00 AM EST 09/22/2016 4:34 AM EST Narrative Resulting Agency Comment Spec In Lab Alirio Esparza MD CHEMISTRY ORDERABLE S Performing Organization Address [facility] Co de Phone Number [facility] [place] [address] * POCT Glucose (09/21/2016 9:59 PM EST) POC Glucose 146 65 - 199 mg/dL [facility] Comment: Supplemental ranges: <140 mg/dL before meals <180 mg/dL all other times of the day Blood specimen (specimen) 09/21/2016 9:59 PM EST 09/21/2016 9:59 PM EST Alirio Esparza MD POINT OF CARE TEST ORDERABLES Performing Organization Address [facility]/[place] Co de Phone Number [facility] [place] [address] * POCT Glucose (09/21/2016 7:26 PM EST) POC Glucose 152 65 - 199 mg/dL [facility] Comment: Supplemental ranges: <140 mg/dL before meals <180 mg/dL all other times of the day Blood specimen (specimen) 09/21/2016 7:26 PM EST 09/21/2016 7:26 PM EST Alirio Esparza MD POINT OF CARE TEST ORDERABLES Performing Organization Address [facility] Co de Phone Number [facility] [place] [address] * POCT Glucose (09/21/2016 6:00 PM EST) POC Glucose 146 65 - 199 mg/dL [facility] Comment: Supplemental ranges: <140 mg/dL before meals <180 mg/dL all other times of the day Blood specimen (specimen) 09/21/2016 6:00 PM EST 09/21/2016 6:00 PM EST Alirio Esparza MD POINT OF CARE TEST ORDERABLES Performing Organization Address [facility]/[place] Co de Phone Number [facility] [place] [address] * (ABNORMAL) BLOOD GAS 2 ARTERIAL (09/21/2016 4:42 PM EST) pH Art 7.35(L) 7.35 - 7.45 [facility] pCO2 Art 48(H) 35 - 45 mmHg [facility] pO2 Art 108(H) 85 - 104 mmHg [facility] HCO3 Art 26.0 20.0 - 26.0 mmol/L [facility] BE Art 0.5 -3.0 - 3.0 mmol/L [facility] Hgb Blood Gas 10.4(L) 11.7 - 15.5 gm/dL [facility] O2HB Art 96.2 94.0 - 97.0 % [facility] COHB Art 0.0 % [facility] Comment: Nonsmokers: 0.5-1.5% COHB Smokers: Variable, but usually less than 10% Toxic: 20-30% COHB Lethal: Greater than 60% COHB METHB Art 0.7 <=1.5 % [facility] Na Whole Blood 139 135 - 145 mmol/L [facility] K Whole Blood 4.2 3.5 - 5.0 mmol/L [facility] Comment: Please note: Patients with WBC >100,000 may have falsely elevated Potassium levels. Contact the Clinical Chemistry Laboratory if there are any questions. ICa Whole Blood 1.13(L) 1.15 - 1.33 mmol/L [facility] Comment: Note: ??Total bilirubin higher than 20 mg/dL may lead to falsely low ionized calcium. CL Whole Blood 106 98 - 107 mmol/L [facility] Gluc Whole Bld 147 65 - 199 mg/dL [facility] Comment:Diabetes: >=200 mg/d L plus symptoms. Lactate WB 1.2 0.5 - 2.2 mmol/L [facility] FIO2 Art 40 % [facility] PF Ratio Art 270 [facility] Blood specimen (specimen) 09/21/2016 4:42 PM EST 09/21/2016 4:42 PM EST Alirio Esparza MD CHEMISTRY ORDERABLE S [facility] [place] [address] * POCT Glucose (09/21/2016 4:07 PM EST) POC Glucose 150 65 - 199 mg/dL [facility] Comment: Supplemental ranges: <140 mg/dL before meals <180 mg/dL all other times of the day Blood specimen (specimen) 09/21/2016 4:07 PM EST 09/21/2016 4:07 PM EST Alirio Esparza MD POINT OF CARE TEST ORDERABLES Performing Organization Address [facility] Co de Phone Number [facility] [place] [address] * (ABNORMAL) Hemoglobin (09/21/2016 4:05 PM EST) Hemoglobin 9.9(L) 11.7 - 15.5 gm/dL [facility] Blood specimen (specimen) 09/21/2016 4:05 PM EST 09/21/2016 4:20 PM EST Narrative Resulting Agency Comment Spec In Lab Alirio Esparza MD HEMATOLOGY ORDERABL ES Performing Organization Address [facility] Co de Phone Number [facility] [place] [address] * Potassium (09/21/2016 4:05 PM EST) [facility] Potassium 4.6 3.5 - 5.0 mmol/L [facility] Comment: Please note: ??Patients [...] MD CHEMISTRY ORDERABLE S Performing Organization Address [facility] Co de Phone Number [facility] [place] [address] * POCT Glucose (09/21/2016 2:52 PM EST) POC Glucose 117 65 - 199 mg/dL [facility] Comment: Supplemental ranges: <140 mg/dL before meals <180 mg/dL all other times of the day Blood specimen (specimen) 09/21/2016 2:52 PM EST 09/21/2016 2:52 PM EST Alirio Esparza MD POINT OF CARE TEST ORDERABLES Performing Organization Address [facility] Co de Phone Number [facility] [place] [address] * POCT Glucose (09/21/2016 1:51 PM EST) POC Glucose 108 65 - 199 mg/dL [facility] Comment: Supplemental ranges: <140 mg/dL before meals <180 mg/dL all other times of the day Blood specimen (specimen) 09/21/2016 1:51 PM EST 09/21/2016 1:51 PM EST Alirio Esparza MD POINT OF CARE TEST ORDERABLES Performing Organization Address [facility] Co de Phone Number [facility] [place] [address] * POCT Glucose (09/21/2016 12:54 PM EST) POC Glucose 128 65 - 199 mg/dL [facility] Comment: Supplemental ranges: <140 mg/dL before meals <180 mg/dL all other times of the day Blood specimen (specimen) 09/21/2016 12:54 PM EST 09/21/2016 12:54 PM EST Alirio Esparza MD POINT OF CARE TEST ORDERABLES Performing Organization Address [facility] Co de Phone Number [facility] [place] [address] * EKG 12 Lead (09/21/2016 12:26 PM EST) Ventricular rate 87 BPM MUSE SYSTEM Atrial Rate 87 BPM MUSE SYSTEM P-R Interval 256 ms MUSE SYSTEM QRS Duration 90 ms MUSE SYSTEM Q-T Interval 406 ms MUSE SYSTEM QTC Calculated (Bezet) 488 ms MUSE SYSTEM Calculated P Wilburn 24 degrees MUSE SYSTEM Calculated R Wilburn 21 degrees MUSE SYSTEM Calculated T Wilburn -5 degrees MUSE SYSTEM INTERPRETATION Sinus rhythm with 1st degree A-V block Nonspecific T wave abnormality Prolonged QT Abnormal ECG When compared with ECG of 19-MAY-2016 11:43, [place] interval has increased T wave inversion now [...] course of the esophagus and below the [id number]. There is a right IJ PA catheter [...] the course of theesophagus and below the [id number]. There is a right IJ PA catheter [...] EST) pH Art 7.41 7.35 - 7.45 [facility] pCO2 Art 42 35 - 45 mmHg [facility] pO2 Art 356(H) 85 - 104 mmHg [facility] HCO3 Art 26.2(H) 20.0 - 26.0 mmol/L [facility] BE Art 1.6 -3.0 - 3.0 mmol/L [facility] Hgb Blood Gas 10.7(L) 11.7 - 15.5 gm/dL [facility] O2HB Art 98.1(H) 94.0 - 97.0 % [facility] COHB Art 0.3 % [facility] Comment: Nonsmokers: 0.5-1.5% COHB Smokers: Variable, but usually less than 10% Toxic: 20-30% COHB Lethal: Greater than 60% COHB METHB Art 0.8 <=1.5 % [facility] Na Whole Blood 140 135 - 145 mmol/L [facility] K Whole Blood 3.8 3.5 - 5.0 mmol/L [facility] Comment: Please note: Patients with WBC >100,000 may have falsely elevated Potassium levels. Contact the Clinical Chemistry Laboratory if there are any questions. ICa Whole Blood 1.15(L) 1.15 - 1.33 mmol/L [facility] Comment: Note: ??Total bilirubin higher than 20 mg/dL may lead to falsely low ionized calcium. CL Whole Blood 106 98 - 107 mmol/L [facility] Gluc Whole Bld 135 65 - 199 mg/dL [facility] Comment:Diabetes: >=200 mg/d L plus symptoms. Lactate WB 2.2 0.5 - 2.2 mmol/L [facility] FIO2 Art 100 % [facility] PF Ratio Art 356 [facility] Blood specimen (specimen) 09/21/2016 12:20 PM EST 09/21/2016 12:20 PM EST Alirio Esparza MD CHEMISTRY ORDERABLE S [facility] [place] [address] * (ABNORMAL) BLOOD GAS 2 ARTERIAL (09/21/2016 10:54 AM EST) pH Art 7.43 7.35 - 7.45 [facility] pCO2 Art 40 35 - 45 mmHg [facility] pO2 Art 297(H) 85 - 104 mmHg [facility] HCO3 Art 26.0 20.0 - 26.0 mmol/L [facility] BE Art 1.6 -3.0 - 3.0 mmol/L [facility] Hgb Blood Gas 8.6(L) 11.7 - 15.5 gm/dL [facility] O2HB Art 98.6(H) 94.0 - 97.0 % [facility] COHB Art 0.5 % [facility] Comment: Nonsmokers: 0.5-1.5% COHB Smokers: Variable, but usually less than 10% Toxic: 20-30% COHB Lethal: Greater than 60% COHB METHB Art 0.3 <=1.5 % [facility] Na Whole Blood 134(L) 135 - 145 mmol/L [facility] K Whole Blood 4.5 3.5 - 5.0 mmol/L [facility] Comment: Please note: Patients with WBC >100,000 may have falsely elevated Potassium levels. Contact the Clinical Chemistry Laboratory if there are any questions. ICa Whole Blood 1.16 1.15 - 1.33 mmol/L [facility] Comment: Note: ??Total bilirubin higher than 20 mg/dL may lead to falsely low ionized calcium. CL Whole Blood 104 98 - 107 mmol/L [facility] Gluc Whole Bld 240(H) 65 - 199 mg/dL [facility] Comment:Diabetes: >=200 mg/d L plus symptoms. Lactate WB 2.4(H) 0.5 - 2.2 mmol/L [facility] FIO2 Art 95 % [facility] Flow Art 0.7 LPM [facility] PF Ratio Art 313 [facility] Temp Art 36.7 Celsius [facility] Blood specimen (specimen) 09/21/2016 10:54 AM EST 09/21/2016 10:54 AM EST Alirio Esparza MD CHEMISTRY ORDERABLE S Performing Organization Address [facility] Co de Phone Number [facility] [place] [address] * Thrombin time (09/21/2016 10:50 AM EST) Thrombin Time 19 15 - 20 sec [facility] Comment: A prolongation in [...] MD HEMATOLOGY ORDERABLE S Performing Organization Address [facility] Co de Phone Number [facility] [place] [address] * Fibrinogen (09/21/2016 10:50 AM EST) Fibrinogen 228 180 - 510 mg/dL [facility] Comment: Called by: JONNATHAN, Read back by: MICHELLE ALEJANDRE_, Date/Time:09/21/16 11:11. A fibrinogen level >100 mg/dL is adequate for hemostasis in most patients without underlying bleeding disorders. Blood specimen (specimen) 09/21/2016 10:50 AM EST 09/21/2016 10:56 AM EST Narrative Resulting Agency Comment Spec In Lab Luis Enrique Quarles MD HEMATOLOGY ORDERABLE S Performing Organization Address [facility] Co de Phone Number [facility] [place] [address] * APTT (09/21/2016 10:50 AM EST) PTT 32 25 - 35 sec [facility] Comment: The recommended therapeutic range for full dose, unfractionated heparin at [facility] is 80 ? 114 seconds. The use of the anti-Xa (heparin) level rather than the PTT is recommended for monitoring anticoagulation intensity in critically ill patients receiving unfractionated heparin by continuous IV infusion. Blood specimen (specimen) 09/21/2016 10:50 AM EST 09/21/2016 10:56 AM EST Narrative Resulting Agency Comment Spec In Lab Luis Enrique Quarles MD HEMATOLOGY ORDERABLE S Performing Organization Address [facility] de Phone Number [facility] [place] [address] * (ABNORMAL) Prothrombin Time (09/21/2016 10:50 AM EST) PT 18.7(H) 12.0 - 15.0 sec [facility] Comment: An INR <2.0 [...] Luis Enrique Quarles MD HEMATOLOGY ORDERABLE S [facility] [place] [address] * (ABNORMAL) Hemogram (09/21/2016 10:50 AM EST) WBC 14.7(H) 4.0 - 9.5 x10(3)/[facility] RBC 2.40(L) 4.00 - 5.21 x10(6)/[facility] Hemoglobin 7.9(L) 11.7 - 15.5 gm/dL [facility] Hematocrit 23.2(L) 35.7 - 45.8 % [facility] Comment: This result has been called to MICHELLE GRIGSBY by ASHU MORENO on 09 21 2016 at 1102, and has been read back. MCV 96.7(H) 82.6 - 94.4 fL [facility] MCH 32.9(H) 27.1 - 32.0 pg [facility] MCHC 34.1 31.7 - 35.0 gm/dL [facility] Platelets 117(L) 145 - 357 x10(3)/[facility] RDWSD 42.6 37.0 - 46.0 [facility] RDWCV 12.1 11.5 - 14.1 % [facility] MPV 9.2 7.6 - 12.9 [facility] nRBC % Auto 0.1 % [facility] nRBC Abs Auto 0.020(H) 0.000 - 0.000 x10(3)/[facility] Blood specimen (specimen) 09/21/2016 10:50 AM EST 09/21/2016 10:56 AM EST Narrative Resulting Agency Comment Spec In Lab Luis Enrique Quarles [place] [address] * Prepare Platelets, Apheresis (09/21/2016 10:30 AM EST) Dispensed? Yes [facility] Blood specimen (specimen) 09/21/2016 10:30 AM EST 09/21/2016 10:28 AM EST Alirio Esparza MD BLOOD BANK PRODUCT ORDERABLES Performing Organization Address [facility]/[place] [address] * (ABNORMAL) BLOOD GAS 2 ARTERIAL (09/21/2016 10:05 AM EST) pH Art 7.33(L) 7.35 - 7.45 [facility] pCO2 Art 54(Critic al) 35 - 45 mmHg [facility] Comment:Noted by instrument adjuster. pO2 Art 218(H) 85 - 104 mmHg [facility] HCO3 Art 27.9(H) 20.0 - 26.0 mmol/L [facility] BE Art 2.0 -3.0 - 3.0 mmol/L [facility] Hgb Blood Gas 8.6(L) 11.7 - 15.5 gm/dL [facility] O2HB Art 98.4(H) 94.0 - 97.0 % [facility] COHB Art 0.5 % [facility] Comment: Nonsmokers: 0.5-1.5% COHB Smokers: Variable, but usually less than 10% Toxic: 20-30% COHB Lethal: Greater than 60% COHB METHB Art 0.3 <=1.5 % [facility] Na Whole Blood 129(L) 135 - 145 mmol/L [facility] K Whole Blood 6.2(Criti gabrielle) 3.5 - 5.0 mmol/L [facility] Comment: Noted by instrument adjuster. Please note: Patients with WBC >100,000 may have falsely elevated Potassium levels. Contact the Clinical Chemistry Laboratory if there are any questions. ICa Whole Blood 0.95(L) 1.15 - 1.33 mmol/L [facility] Comment: Note: ??Total bilirubin higher than 20 mg/dL may lead to falsely low ionized calcium. CL Whole Blood 100 98 - 107 mmol/L [facility] Gluc Whole Bld 289(H) 65 - 199 mg/dL [facility] Comment:Diabetes: >=200 mg/d L plus symptoms. Lactate WB 2.2 0.5 - 2.2 mmol/L [facility] Temp Art 37.0 Celsius [facility] Blood specimen (specimen) 09/21/2016 10:05 AM EST 09/21/2016 10:05 AM EST Alirio Esparza MD CHEMISTRY ORDERABLE S [facility] [place] [address] * (ABNORMAL) BLOOD GAS 2 ARTERIAL (09/21/2016 9:44 AM EST) pH Art 7.22(Criti gabrielle) 7.35 - 7.45 [facility] Comment:Noted by instrument adjuster. pCO2 Art 70(Critica l) 35 - 45 mmHg [facility] Comment:Noted by instrument adjuster. pO2 Art 224(H) 85 - 104 mmHg [facility] HCO3 Art 27.8(H) 20.0 - 26.0 mmol/L [facility] BE Art 0.0 -3.0 - 3.0 mmol/L [facility] Hgb Blood Gas 8.7(L) 11.7 - 15.5 gm/dL [facility] O2HB Art 98.5(H) 94.0 - 97.0 % [facility] COHB Art 0.6 % [facility] Comment: Nonsmokers: 0.5-1.5% COHB Smokers: Variable, but usually less than 10% Toxic: 20-30% COHB Lethal: Greater than 60% COHB METHB Art 0.3 <=1.5 % [facility] Na Whole Blood 131(L) 135 - 145 mmol/L [facility] K Whole Blood 5.9(H) 3.5 - 5.0 mmol/L [facility] Comment: Please note: Patients with WBC >100,000 may have falsely elevated Potassium levels. Contact the Clinical Chemistry Laboratory if there are any questions. ICa Whole Blood 1.00(L) 1.15 - 1.33 mmol/L [facility] Comment: Note: ??Total bilirubin higher than 20 mg/dL may lead to falsely low ionized calcium. CL Whole Blood 101 98 - 107 mmol/L [facility] Gluc Whole Bld 227(H) 65 - 199 mg/dL [facility] Comment:Diabetes: >=200 mg/d L plus symptoms. Lactate WB 2.1 0.5 - 2.2 mmol/L [facility] Blood specimen (specimen) 09/21/2016 9:44 AM EST 09/21/2016 9:44 AM EST Alirio Esparza MD CHEMISTRY ORDERABLE S Performing Organization Address City/[facility]/[place] Co de Phone Number [facility] [place] [address] * (ABNORMAL) Hemoglobin (09/21/2016 9:42 AM EST) Hemoglobin 7.2(L) 11.7 - 15.5 gm/dL [facility] Blood specimen (specimen) 09/21/2016 9:42 AM EST 09/21/2016 9:51 AM EST Narrative Resulting Agency Comment Spec In Lab Alirio Esparza MD HEMATOLOGY ORDERABL ES Performing Organization Address City/[facility]/ZIP Co de Phone Number [facility] [place] [address] * Platelet count (09/21/2016 9:42 AM EST) Platelets 159 145 - 357 x10(3)/mc L [facility] Plat Immature % 1.6 0.0 - 7.4 % [facility] Comment: Limitation of the Immature Platelet Fraction (IPF)-May be less reliable when the platelet count is less than 35x155/uL due to statistical imprecision. The IPF value [...] in a decreased state of production. References: [employer] The Clinical Value of the Immature Platelet Fraction (IPF) in Cell Recovery Document Number 10-1143 12/2010 [employer] The Role of the Immature Platelet Fraction (IPF) in the Differential Diagnosis of Thrombocytopenia, Document MKT-10-1209 V05 P05 Blood specimen (specimen) 09/21/2016 9:42 AM EST 09/21/2016 9:51 AM EST Narrative Resulting Agency Comment Spec In Lab Alirio Esparza MD HEMATOLOGY ORDERABL ES [facility] [place] [address] * (ABNORMAL) Hematocrit (09/21/2016 9:42 AM EST) Hematocrit 21.6(L) 35.7 - 45.8 % [facility] Comment: This result has been called to MICHELLE ALEJANDRE by Serjio Frazier on 09 21 2016 at 0957, and has been read back. Blood specimen (specimen) 09/21/2016 9:42 AM EST 09/21/2016 9:51 AM EST Narrative Resulting Agency Comment Spec In Lab Alirio Esparza MD HEMATOLOGY ORDERABL ES Performing Organization Address [facility]/[place] Co de Phone Number [facility] [place] [address] * Fibrinogen (09/21/2016 9:42 AM EST) Fibrinogen 219 180 - 510 mg/dL [facility] Comment: Called by: JONNATHAN, Read back by: MICHELLE ALEJANDRE_, Date/Time:09/21/16 10:03_. A fibrinogen level >100 mg/dL is adequate for hemostasis in most patients without underlying bleeding disorders. Blood specimen (specimen) 09/21/2016 9:42 AM EST 09/21/2016 9:51 AM EST Narrative Resulting Agency Comment Spec In Lab Alirio Esparza MD HEMATOLOGY ORDERABL ES Performing Organization Address [facility]/[place] Co de Phone Number [facility] [place] [address] * (ABNORMAL) BLOOD GAS 2 ARTERIAL (09/21/2016 9:10 AM EST) pH Art 7.36 7.35 - 7.45 [facility] pCO2 Art 48(H) 35 - 45 mmHg [facility] pO2 Art 295(H) 85 - 104 mmHg [facility] HCO3 Art 26.0 20.0 - 26.0 mmol/L [facility] BE Art 0.5 -3.0 - 3.0 mmol/L [facility] Hgb Blood Gas 8.0(L) 11.7 - 15.5 gm/dL [facility] O2HB Art 98.3(H) 94.0 - 97.0 % [facility] COHB Art 1.0 % [facility] Comment: Nonsmokers: 0.5-1.5% COHB Smokers: Variable, but usually less than 10% Toxic: 20-30% COHB Lethal: Greater than 60% COHB METHB Art 0.3 <=1.5 % [facility] Na Whole Blood 135 135 - 145 mmol/L [facility] K Whole Blood 5.4(H) 3.5 - 5.0 mmol/L [facility] Comment: Please note: Patients with WBC >100,000 may have falsely elevated Potassium levels. Contact the Clinical Chemistry Laboratory if there are any questions. ICa Whole Blood 0.93(L) 1.15 - 1.33 mmol/L [facility] Comment: Note: ??Total bilirubin higher than 20 mg/dL may lead to falsely low ionized calcium. CL Whole Blood 102 98 - 107 mmol/L [facility] Gluc Whole Bld 195 65 - 199 mg/dL [facility] Comment:Diabetes: >=200 mg/d L plus symptoms. Lactate WB 1.8 0.5 - 2.2 mmol/L [facility] Temp Art 37.0 Celsius [facility] Blood specimen (specimen) 09/21/2016 9:10 AM EST 09/21/2016 9:10 AM EST Alirio Esparza MD CHEMISTRY ORDERABLE S [facility] [place] [address] * Surgical Pathology Report (09/21/2016 9:09 AM EST) FINAL DIAGNOSIS (AP) [id number] ?Location: 3T The signing pathologist has (i) examined the relevant preparation(s) for the specimen(s) and (ii) rendered or confirmed the diagnosis(es). . 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 Electronically signed by: ??Eric Michel MD Verified: ??09/24/2016 ?Pathologist CLINICAL INFORMATION Specimen Submitted: [...] submitted for decalcification: ??(1) ?. (R1) ??ADELITA 09/24/2016 9:32 AM EST [facility] 09/21/2016 9:09 AM EST Alirio Esparza MD PATHOLOGY/CYTOLOGY ORDERABLES Performing Organization Address [facility]/[place] Co de Phone Number [facility] [place] [address] * Specimen to Pathology (surgical or derm) (09/21/2016 9:09 AM EST) AP Specimen 09/21/2016 9:09 AM EST 09/21/2016 9:09 AM EST Narrative [facility] - 09/21/2016 9:09 AM EST Specimen requisition ordered. ??Separate Pathology report to follow Alirio Esparza MD PATHOLOGY/CYTOLOGY ORDERABLES Performing Organization Address [facility]/[place] Co de Phone Number [facility] [place] [address] * (ABNORMAL) BLOOD GAS 2 ARTERIAL (09/21/2016 8:50 AM EST) pH Art 7.41 7.35 - 7.45 [facility] pCO2 Art 33(L) 35 - 45 mmHg [facility] pO2 Art 348(H) 85 - 104 mmHg [facility] HCO3 Art 20.6 20.0 - 26.0 mmol/L [facility] BE Art -4.1(L) -3.0 - 3.0 mmol/L [facility] Hgb Blood Gas 9.5(L) 11.7 - 15.5 gm/dL [facility] O2HB Art 98.8(H) 94.0 - 97.0 % [facility] COHB Art 0.3 % [facility] Comment: Nonsmokers: 0.5-1.5% COHB Smokers: Variable, but usually less than 10% Toxic: 20-30% COHB Lethal: Greater than 60% COHB METHB Art 0.3 <=1.5 % [facility] Na Whole Blood 137 135 - 145 mmol/L [facility] K Whole Blood 4.0 3.5 - 5.0 mmol/L [facility] Comment: Please note: Patients with WBC >100,000 may have falsely elevated Potassium levels. Contact the Clinical Chemistry Laboratory if there are any questions. ICa Whole Blood 1.04(L) 1.15 - 1.33 mmol/L [facility] Comment: Note: ??Total bilirubin higher than 20 mg/dL may lead to falsely low ionized calcium. CL Whole Blood 105 98 - 107 mmol/L [facility] Gluc Whole Bld 93 65 - 199 mg/dL [facility] Comment:Diabetes: >=200 mg/d L plus symptoms. Lactate WB 1.0 0.5 - 2.2 mmol/L [facility] Blood specimen (specimen) 09/21/2016 8:50 AM EST 09/21/2016 8:50 AM EST Alirio Esparza MD CHEMISTRY ORDERABLE S [facility] [place] [address] * (ABNORMAL) BLOOD GAS 2 ARTERIAL (09/21/2016 8:18 AM EST) pH Art 7.42 7.35 - 7.45 [facility] pCO2 Art 36 35 - 45 mmHg [facility] pO2 Art 283(H) 85 - 104 mmHg [facility] HCO3 Art 22.8 20.0 - 26.0 mmol/L [facility] BE Art -2.0 -3.0 - 3.0 mmol/L [facility] Hgb Blood Gas 12.6 11.7 - 15.5 gm/dL [facility] O2HB Art 99.0(H) 94.0 - 97.0 % [facility] COHB Art 0.6 % [facility] Comment: Nonsmokers: 0.5-1.5% COHB Smokers: Variable, but usually less than 10% Toxic: 20-30% COHB Lethal: Greater than 60% COHB METHB Art 0.0 <=1.5 % [facility] Na Whole Blood 144 135 - 145 mmol/L [facility] K Whole Blood 4.0 3.5 - 5.0 mmol/L [facility] Comment: Please note: Patients with WBC >100,000 may have falsely elevated Potassium levels. Contact the Clinical Chemistry Laboratory if there are any questions. ICa Whole Blood 1.22 1.15 - 1.33 mmol/L [facility] Comment: Note: ??Total bilirubin higher than 20 mg/dL may lead to falsely low ionized calcium. CL Whole Blood 106 98 - 107 mmol/L [facility] Gluc Whole Bld 102 65 - 199 mg/dL [facility] Comment:Diabetes: >=200 mg/d L plus symptoms. Lactate WB 1.2 0.5 - 2.2 mmol/L [facility] FIO2 Art 95 % [facility] Flow Art 1.1 LPM [facility] PF Ratio Art 298 [facility] Temp Art 35.6 Celsius [facility] Blood specimen (specimen) 09/21/2016 8:18 AM EST 09/21/2016 8:18 AM EST Alirio Esparza MD CHEMISTRY ORDERABLE S Performing Organization Address City/State/[place] Co de Phone Number [facility] [place] [address] * Prepare RBC (09/21/2016 7:05 AM EST) Dispensed? Yes [facility] Blood specimen (specimen) 09/21/2016 7:05 AM EST 09/21/2016 7:02 AM EST Alirio Esparza MD BLOOD BANK PRODUCT ORDERABLES Performing Organization Address City/[facility]/ZIP Co de Phone Number [facility] [place] [address] * POCT Glucose (09/21/2016 6:42 AM EST) [facility] POC Glucose 104 65 - 199 mg/dL [facility] Comment: Supplemental ranges: <140 mg/dL before meals <180 mg/dL all other times of the day Blood specimen (specimen) 09/21/2016 6:42 AM EST 09/21/2016 6:42 AM EST Alirio Esparza MD POINT OF CARE TEST ORDERABLES Performing Organization Address [facility]/[place] Co de Phone Number [facility] [place] [address] documented in this encounter Visit Diagnoses Not [...] dose on Wed09/21/16 at 1230, Until Discontinued, Bucklin teeth, Routine Given 09/25/2016 9:40 AM EST [...] , Routine 0600 (Given - Provider: Marcie R Loranger, RN)1302 (Given - Provider: Federico Apple RN)1708 (Given - Provider: Federico Apple, VALDO) 0005 (Given - Provider: Alie Whitfield RN)0551 [...] 0600)1600 (Due - Provider: Kendall Martínez [facility]) aspirin chewable tablet 81 mg(Linked Group 1) 81 mg, Oral, DAILY, First dose on Wed09/22/16 at 0900, Until Discontinued, Start on post-op day 1 in the AM., Routine 0817 (Given - Provider: Elsa Miguel RN) 0829 (Given - Provider: Marek Barnes RN) 0942 (Given - Provider: Joselyn Caceres, VALDO) aspirin suppository 300 mg(Linked Group 1) 300 [...] Frazier RN) 0602 (Given - Provider: Alie Whitfield, VALDO) 0649 (Given - Provider: Breanna Olivas RN) buPROPion (WELLBUTRIN SR) SR tablet 100 mg 100 mg, Oral, EVERY EVENING, First dose on Wed09/22/16 at 1700, Until Discontinued, DO NOT CRUSH OR OPEN, Routine 170 (Given - Provider: Federico Apple RN) 162 (Given - Provider: Chaya Hill RN) chlorhexidine (PERIDEX) 0.12 % oral solution 15 mL 15 mL, Oral, EVERY 12 HOURS SCHEDULED (2 times per day), First dose on Wed09/21/16 at 1230, Until Discontinued, Bucklin teeth, Routine 0900 (Not Given - Provider: Elsa iMguel RN - Reason: Patient/family refused)2019 (Given - Provider: Federico Apple RN) 0900 (Not Given - Provider: Marek Barnes RN - Reason: Patient/family refused)2100 (Not Given - Provider: Alie Whitfield RN [...] Apple RN) 0826 (Given - Provider: Marek Barnes, VALDO)1622 (Given - Provider: Chaya Hill RN) 0941 (Given - Provider: Joselyn Caceres VALDO) furosemide (LASIX) tablet 20 mg 20 [...] RN) 0941 (See Alternative - Provider: Joselyn Caceres RN) pantoprazole (PROTONIX) tablet 40 mg(Linked Group 2) 40 mg, Oral, DAILY, First dose on Wed09/21/16 at 1230, Until Discontinued, DO NOT CRUSH OR OPEN If unable to take PO, may give IV 0817 (Given - Provider: Elsa Miguel RN) 0829 (Given - Provider: Marek Barnes, VALDO) 0941 (Given - Provider: Joselyn Caceres, VALDO) [...] Routine documented in this encounter Care Teams Quarry Plug And Feather Driller Relationship Specialty Start Date End Date Deborah Quiroga APRN PCP - General Family Medicine 03/24/16 02/04/23 documented as of this encounter
--- OUTSIDE RECORDS SUMMARY | 2024-02-22 14:15 | XMS_ITS | Encounter Summary ---
[place] [address] Care Team Providers Care Truck Leasing Manager Name Role Phone Ashley Quirogan Cornelius ANURAG Primary Care Provider [phone] Reason for Visit * Reason Onset Date Comments Medication Management 09/14/2016 Encounter Details Date Type Department Care Team (Late st Contact Info) Description 09/14/2016 Telephone [place] [phone] Alexandrea Greenwood, sole stainer Management Social History Tobacco Use Types Packs/Day [...] 09/14/2016 9:12 AM EST Message received from secretary office clerk: Purnima called, asking for clarification on when [...] 4:15 PM EDT Office Visit Dermatology at [place] [address] [place] [address] Marek Bonilla MD [address] [facility] [place] [address] 06/05/2024 11:30 AM EST [place] [address] Magdalena Peralta MD [facility] [place] [address] documented as of this encounter Visit Diagnoses Not on filedocumented in this encounter Care Teams Truck Leasing Manager Relationship Specialty Start Date End Date Deborah Quiroga APRN PCP - General Family Medicine 03/24/16 02/04/23 documented as of this encounter
--- OUTSIDE RECORDS SUMMARY | 2024-02-22 14:15 | XMS_ITS | Encounter Summary ---
[place] [address] Care Team Providers Care Scientist/Engineer Name Role Phone JunaidDeborah APRN Primary Care Provider [phone] Reason for Visit * Reason Onset Date Comments Labs Only 09/16/2016 Encounter Details Date Type Department Care Team (Late st Contact Info) Description 09/16/2016 Telephone Hematology [place] [phone] Alexandrea Greenwood, RN Labs Only Social History [...] 09/16/2016 11:09 AM EST Message received from police department secretary: Purnima is having her Neulasta done today at [facility]. ??She is wondering if we want to do a CBC prior to the injection? [phone] Borjas: CBC is fine RN spoke with Swapna at [facility] who confirms they can draw CBC on pt today, RN faxed CBC w/diff to [facility] lab at [phone] RN relayed to pt that CBC ordered had been faxed to [facility], pt will have CBC drawn today prior to neulasta injection. documented in this encounter Plan of Treatment Upcoming Encounters Date Type Department Care Team (Late st Contact Info) Description 02/22/2024 4:15 PM EDT Office Visit Dermatology at [place] [address] [place] [address] Marek Bonilla MD [address] [place] [address] 06/05/2024 11:30 AM EST Office [place] [phone] Magdalena Peralta MD [facility] [address] [facility] [place] [address] documented as of this encounter Results * [...] type documented in this encounter Care Teams Scientist/Engineer Relationship Specialty Start Date End Date Deborah Quiroga APRN PCP - General Family Medicine 03/24/16 02/04/23 documented as of this encounter
--- OUTSIDE RECORDS SUMMARY | 2024-02-22 14:15 | XMS_ITS | Encounter Summary ---
[facility] [place] [address] Care Team Providers Care Chick Room Supervisor Name Role Phone Ashley Quirogan Sylvia ANURAG Primary Care Provider [phone] Reason for Referral * Consultation (Routine) - Specialty Diagnoses / Procedures Referred By Contact Referred To Contact Cardiac Rehabilitation Diagnoses S/P AVR Alirio Esparza MD [facility] DR [place] [address] Cardiac Rehab, [address] [place] [address] Referral ID Status Reason Start Date Expiration Date V isits Requested Visits Authorized [id number] Consult, Test & Treat 09/25/2016 03/24/2017 36 36 Reason for Visit * Auth/Cert Specialty Diagnoses / Procedures Referred By Crispin maxwell Referred To Contact Diagnoses Aortic stenosis Procedures PRO REPLACE AORT VALV, PROSTH VALV @REPLACE AORTIC VALVE, OPEN, W\CPB, W\PROSTHETIC VALVE (WRVU 41.32) Referral ID Status Reason Start Date Expiration Date Visits Re quested Visits Authorized [id number] 1 1 Encounter Details Date Type Department Care Team (Latest Contact Info) Description 09/21/2016 6:08 AM EST - 09/25/2016 4:33 PM EST Hospital Encounter Intermediate [place] [id number] Alirio Esparza MD [facility] DR [place] [address] Aortic valve stenosis, unspecified etiology; S/P AVR [...] Patient Age: 61 y.o. Birthdate: 1955 Language: Citizen Of [place] Race: White Ethnicity: Not nor Admit Date: 09/21/2016 Discharge Date: 09/25/2016 Attending Physician: Alirio Esparza MD Follow-up Recommendations for Providers: Please continue routine management of cardiovascular risk factors including blood pressure, lipids,glucose, etc. Please note any changes to medications. Patient to follow-up with PCP, Deborah Quiroga APRN, in 1-2 weeks. Patient to follow-up with Milk Treater, Dr. Antelmo Burrell, in two weeks. Patient to follow-up with Cardiac Surgery, Dr. Alirio Esparza, to be scheduled for before 10/19/2016, with CXR, EKG, and Echo. Inpatient Provider Contact Information: [facility] Section of Cardiac Surgery [facility] [address] FAX [phone] Discharge Diagnoses (Hospital Problems) Primary Diagnoses: Secondary [...] 41.32) performed by Alirio Esparza MD at [facility] OR ??? Pro aortoplas for supravalv sten N/A 09/21/2016 @AORTOPLASTY FOR SUPRAVALVULAR STENOSIS (WRVU 29.33) performed by Alirio Esparza MD at [facility] OR Prior To Admission Medications Prescriptions [...] Hospital Course: Purnima Thacker was admitted to [facility] on 09/21/2016 via the Same Day [...] Alirio Esparza and/or the Cardiac Surgery Physician Lumber Straightener Team may be reached at . Antibiotic prophylaxis: You will need to take antibiotics prior to many invasive tests and treatments, such as dental cleaning, which should be done every 6 months. Your primary care physician or your dentist can prescribe this medication. Please refer to the card with the [employer] Heart Association Guidelines for more information. You have been provided with 3 copies of this card. Keep one for your self. Give one to your primary care physician and one to your dentist. Please refer to the [employer] Heart Association Guidelines for more information. Good [...] Dr. Alirio Jones. You may use a [place] Track or treadmill but avoid any pulling [...] friends, go to a movie, go to protestant, etc. Heavy activities: No hunting, skiing, jogging, [...] should resume a low fat, low cholesterol, Swedish Heart Association Diet. Driving: No driving until [...] the outpatient Phase 2 Cardiac Rehabilitation at [facility]. The patient agrees to a referral to this program. The referral will be sent at discharge and the patient should be contacted by the program within 1- 2 weeks from discharge. Future Appointments and Orders Future Appointments Provider Department Dept Phone 11/20/2016 11:30 AM Markel Borjas MD [facility] [phone] Future Orders Complete By Expires Echocardiogram Transthoracic([facility]) [GVV994 Custom] 10/18/2016 (Approximate) 09/18/2017 Process Instructions: If the Echocardiogram is to be PERFORMED in a location other than [place]--STOP and order [id number], Echocardiogram South/External. Scheduling Instructions: Questions: Is a Bubble Study requested?: No Does the patient have Congenital Heart Disease?: No Does patient require sedation?: None GA rationale: Should this service be billed to the research sponsor?: EKG 12 Lead [EKG1 Custom] 10/18/2016 (Approximate) 09/25/2017 Process Instructions: Scheduling Instructions: Questions: Which location will this be performed?: [place] Is a rhythm strip needed?: No If EKG Reason is Pre-op Evaluation, indicate diagnosis for surgery.: Should this service be billed to the research sponsor?: XR Chest PA & Lateral (Generic) [43260 27773 Custom] 10/18/2016 (Approximate) 09/25/2017 Process Instructions: Scheduling Instructions: Questions: Where will study be performed?: [facility]- Radiology Portable exam?: No Reason for exam and clinical history: s/p AVReplacement, patch annuloplasty 1 month f/u Other pertinent information: Stat read required?: Date of injury if applicable: Requested Time: Referral to Cardiac Rehab [ZLT223 Custom] As directed Process Instructions: If no progress note charted, please enter Clinical details in comments. Scheduling Instructions: Questions: My question or request is: s/p AVR. Cardiac rehab at [facility] Referral to Home Health - at DISCHARGE [COM9664 CPT(R)] As directed Process Instructions: Scheduling Instructions: Comments: DOCUMENTATION FOR VNA SERVICES (INCLUDING THOSE PATIENTS WITH MEDICARE COVERAGE REQUIRING HOME VNA SERVICES AND/OR HOSPICE SERVICES) PATIENT'S LOCATION: Purnima Thacker [address] [place] [phone] (home) No relevant phone numbers on file. Technician Inventory Specialist's Name: self In discussion with the attending physician, it is certified that this patient is under their care and that they, or a Nurse Practitioner, or Physician Lumber Straightener who is working directly with them, hada [...] for services as follows: HOME HEALTH AGENCY: [facility]. PHONE: [phone] FAX: [phone] RN orders: Cardiopulmonary assessment, incisional assessment, assess [...] issues please call the Cardiac SurgeryOffice at [phone] FOR MEDICARE ONLY: In discussion with the [...] noted. Questions: Agency name and contact information: [facility] Patient location post discharge: home What services are requested: Registered Nurse Physical Therapy Occupational Therapy Start date: Responsible MD post discharge contact info: Arrangements for VNA/home care: As above. VN RN OR PCP TO PLEASE REMOVE CHEST TUBE SUTURES ON OR AFTER 09/30/16 Signed: Crispin Aranda PA-C 09/25/2016 [facility] Section of Cardiac Surgery [facility] [address] FAX [phone] Date: 09/25/2016 CC: ANURAG Alford Caryn E, APRN [address] [place] [address] documented in this encounter Discharge Instructions * [...] Alirio Esparza and/or the Cardiac Surgery Physician Lumber Straightener Team may be reached at . Antibiotic prophylaxis: You will need to take antibiotics prior to many invasive tests and treatments, such as dental cleaning, which should be done every 6 months. Your primary care physician or your dentist can prescribe this medication. Please refer to the card with the Swedish Heart Association Guidelines for more information. You have been provided with 3 copies of this card. Keep one for your self. Give one to your primary care physician and one to your dentist. Please refer to the Swedish Heart Association Guidelines for more information. Good [...] Dr. Alirio Jones. You may use a [place] Track or treadmill but avoid any pulling [...] friends, go to a movie, go to protestant, etc. Heavy activities: No hunting, skiing, jogging, [...] should resume a low fat, low cholesterol, Swedish Heart Association Diet. Driving: No driving until [...] the outpatient Phase 2 Cardiac Rehabilitation at [facility]. The patient agrees to a [...] PM EST Cardiac Surgery Progress Note: ID: [id number] S/p AVR, patch aortoplasty POD#2. PMH of [...] Gas) No results found for: PHART, PO2ART, [id number] Assessment/Plan: TPW out this am. (+) BM. [...] Signed: Crispin Aranda PA-C 09/24/2016 Team pager: [phone]; [phone] after 5pm [facility] Section of Cardiac Surgery * Leonor Henson, SHANK THREADER - 09/23/2016 10:48 AM EST Cardiac Surgery Progress Note: ID: [id number] s/p AVR, patch aortoplasty POD#2. PMH of Neutropenia, HLD, HTN, Depression, obesity,. EF- 60% 24 Hour Events: transferred from [facility] to [facility], doing well, no overnight events [...] Gas) No results found for: PHART, PO2ART, UCN4QZZ Assessment/Plan: s/p AVR, patch aortoplasty POD#2. PMH of Neutropenia, HLD, HTN, Depression, obesity, . Transferred from [facility] yesterday and doing well. Pathway. Will dc [...] Surgeon on rounds. Signed: Leonor Henson APRN [facility] Section of Cardiac Surgery Date: 09/23/2016 * Nico Palacios PA - 09/22/2016 9:56 AM EST Cardiac Surgery Progress Note: ID: [id number] s/p AVR, patch aortoplasty POD#1. PMH of [...] NT, ND, soft. Ext: Moves all extremities. [place], well perfused. Incisions: C/D/I Tubes/Lines/Drains: PIV, leanna, [...] Attending Surgeon on rounds. Signed: EKATERINA KIM [facility] Section of Cardiac Surgery Date: 09/22/2016 [...] health, home with outpatient services Lalitha Cohen [facility] Pager: [phone] Inpatient Physical Therapy Patient status, treatment interventions, and goals discussed with student. I am in agreement with all details and associated flowsheet rows as documented and was present for all aspects of the patient treatment session. Nery Jaramillo, PBX OPERATOR Pager [phone] Problem: Acute Rehab Services Goal & Intervention Plan Goal: Bed Mobility Goal Stand Alone Therapy Goal Outcome: Ongoing (Interventions Implemented as Appropriate) 09/22/16 16109/25/16 0947 Bed Mobility Goal Bed Mobility Goal, Time to Achieve 4 days -- Bed Mobility Goal, Activity Type scoot/bridge;supine to sit/sit to supine -- Bed Mobility Goal, [place] Level independent -- Bed Mobility Goal, Additional [...] Achieve 4 days -- Gait Training Goal, [place] Level independent -- Gait Training Goal, Distance [...] home with home health Lalitha BALTAZAR Pager: [phone] Inpatient Physical Therapy Patient status, treatment interventions, and goals discussed with student. I am in agreement with all details and associated flowsheet rows as documented and was present for all aspects of the patient treatment session. Nery Jaramillo PTA Pager [phone] Problem: Acute Rehab Services Goal & Intervention Plan Goal: Bed Mobility Goal Stand Alone Therapy Goal Outcome: Ongoing (Interventions Implemented as Appropriate) 09/22/16 1611 09/23/16 1412 Bed Mobility Goal Bed Mobility Goal, Time to Achieve 4 days -- Bed Mobility Goal, Activity Type scoot/bridge;supine to sit/sit to supine -- Bed Mobility Goal, [place] Level independent -- Bed Mobility Goal, Additional [...] Achieve 4 days -- Gait Training Goal, [place] Level independent -- Gait Training Goal, Distance [...] days -- Transfer Training Goal, Activity Type evs-xv-yrmfn/sgnpp-yk-kzd;hcs-qk-zkdmt/efglh-bp-fbg -- Transfer Train Goal, [place] Level independent -- Transfer Training Goal, Additional Goal abides sternal precautions -- Transfer Training Goal, Outcome -- goal met * Consult Note - Jana Crenshaw RN - 09/23/2016 9:41 AM EST [facility] CARDIAC REHABILITATION Purnima Thacker was seen today regarding participation in the outpatient Phase 2 Cardiac Rehabilitation at [facility]. The patient agrees to a referral to this program. The referral will be sent at discharge and the patient should be contacted by the Program within 1- 2 weeks from discharge. * Plan of Care - Marcie Frazier RN - 09/23/2016 3:51 AM EST Problem: Patient Care Overview Goal: Plan of Care Review Outcome: Ongoing (Interventions Implemented as Appropriate) 09/23/16 0277 Coping/Psychosocial Plan Of Care Reviewed With patient [...] Another Service: (cardiac rehab) NICOLE HERNANDEZ, PT Pager:[phone] Inpatient Physical Therapy Problem: Acute Rehab Services Goal & Intervention Plan Goal: Bed Mobility Goal Stand Alone Therapy Goal Outcome: Ongoing (Interventions Implemented as Appropriate) 09/22/16 1611 Bed Mobility Goal Bed Mobility Goal, Time to Achieve 4 days Bed Mobility Goal, Activity Type scoot/bridge;supine to sit/sit to supine Bed Mobility Goal, [place] Level independent Bed Mobility Goal, Additional Goal able to abide sternal precautions during transfers Goal: Gait Training Goal Stand Alone Therapy Goal Outcome: Ongoing (Interventions Implemented as Appropriate) 09/22/16 1611 Gait Training Goal Gait Training Goal, Date Established 09/22/16 Gait Training Goal, Time to Achieve 4 days Gait Training Goal, [place] Level independent Gait Training Goal, Distance to Achieve ascend and descends 2 steps independently Goal: Goal Transfer Training Stand Alone Therapy Goal Outcome: Ongoing (Interventions Implemented as Appropriate) 09/22/16 1611 Goal Transfer Training Transfer Training Goal, Time to Achieve 4 days Transfer Training Goal, Activity Type vhs-sf-bwnbv/cnmnu-pa-wmb;zkb-hv-xgqhb/oslwi-kz-gvh Transfer Train Goal, [place] Level independent Transfer Training Goal, Additional Goal [...] of completing AD's at home, chooses her olmvpw-jq-jme, Martha Thacker (home) for her DPOAH, 2nd choice in friend[place] Current Coping/Education/Information Needs: patient sitting up in recliner, awake, alert, calmly answers questions appropriately, demonstrates understanding of her current health situation. [facility] [place] [facility]. Current Functional Ability: 1 [...] close by, Rashad & [place], and her qunigo-po-ofk Martha Thacker who she has chosen to be her DPOA. Also has a friend Nitesh Leroy who lives in [place], [place], also her DPOAH choice. Behavioral Health History: none on file in e[facility] Substance Use/Abuse: none on file in [facility] Other Pertinent/Service Specific Information: none Health/Prescription Coverage: Primary Insurance: [employer] Secondary Insurance: none Prescription Coverage: yes, per patient no issues Preferred Pharmacy: ?? Other: none Primary Care Provider: Deborah Quiroga APRN [phone] Patient/Caregiver Goals of Treatment: per medical team recommendations at discharge for CT surgery Potential Needs for Transition of Care: Rehab/SNF: TBD Home Health: TBD DME: no Dialysis: no Community Resources: non3 Transportation: ride home with a friend Other: none Anticipated Barriers to Discharge/Special Considerations: none anticipated at this time Plan: patient will need VNA services at discharge. The patient/desk representative has been provided a list of Home Health Agencies/DME vendors which servetheir preferred geographic area. A letter describing our affiliations was reviewed with them and they were educated about their right to choose where referrals are placed. Patient requests referral to: [facility]. PHONE: [phone] FAX: [phone] Expected date of discharge: Fri/Sat? CM called VNA to confirm referral, talked with VALDO Bunn/intake who stated she was familiar w/patient & would monitor her progress through curaspan. Referral routed to the Engineer And Geologist for matching with agency/vendor and to provide any required information. A member of the Care Management team will continue to monitor progress, follow for continuity of care and assist with transition of care planning. Amanda Moreno RN Pager: [phone] * Op Note - Alirio Esparza MD - 09/21/2016 12:53 PM EST 09/23/2016 Purnima Thacker 1955 [id number] Preoperative Diagnosis: Symptomatic aortic stenosis Postoperative Diagnosis: Symptomatic aortic stenosis Procedure: Aortic valve replacement: Bovine Pericardial 25 mm Surgeon: Alirio Esparza M.D. Lumber Straightener: Philip BALL Anesthesia: General endotracheal anesthesia Drains: [...] Operative Note Patient Name: Purnima Thacker : [id number] MR#: [id number] Case Date: 09/21/2016 Surgeon: Surgeon(s) and Role: * Alirio Esparza MD - Primary * Nico Palacios PA - Physician Lumber Straightener Preoperative diagnosis: Postoperative diagnosis: Procedure(s) (LRB): @REPLACE [...] PM EDT Office Visit Dermatology at [address] [phone] Marek Bonilla MD [address] [facility] [place] [address] 06/05/2024 11:30 AM EST [place] [address] Magdalena Peralta MD [facility] [place] [address] Scheduled Orders Name Type Priority Associated Diagnoses [...] IMPLANTABLE DEVICES SCAN 09/26/2016 12:00 AM EST CLOUD ENGAGEMENT PARTNER SCAN 09/26/2016 12:00 AM EST POTASSIUM Routine [...] SCAN EXT O RDR/RSLT * SCAN DOC: CLOUD ENGAGEMENT PARTNER (09/26/2016 12:00 AM EST) Anatomical Region Laterality Modality Other Narrative 09/26/2016 12:00 AM EST Ordered by an unspecified provider. Scanning Provider MEDIA MGR SCAN EXT O RDR/RSLT * Potassium (09/25/2016 4:32 AM EST) Pathologist [facility] Potassium 4.4 3.5 - 5.0 mmol/L [facility] [...] Lab Alirio Esparza MD CHEMISTRY ORDERABLE S [facility] [place] [address] * (ABNORMAL) Differential, Automated (09/24/2016 9:56 AM EST) Neutrophils % 76.8 % [facility] Neutr Abs (ANC) 7.79(H) 1.70 - 6.10 x10(3)/mc L [facility] Lymphocytes % 11.1 % [facility] Lymphocytes Abs 1.1 0.9 - 3.2 x10(3)/mc L [facility] Monocytes % 8.5 % [facility] Monocyte Abs 0.9 0.3 - 0.9 x10(3)/mc L [facility] Eosinophils % 0.5 % [facility] Eosinophils Abs 0.0 0.0 - 0.4 x10(3)/[facility] LABORATORY Basophils % 0.2 % [facility] Basophils Abs 0.0 0.0 - 0.1 x10(3)/[facility] LABORATORY Immature Gran % 2.90 % [facility] Comment: Immature granulocytes(IG's)percentage and absolute count will include metamyelocytes, myelocytes, and promyelocytes. Blood smears from CBCs yielding IG's will be scanned manually for concordance. If this scan disagrees with the automated IG or if promyelocytes are noted, a manual differential will be performed. Amanda Gran Abs 0.29(H) 0.00 - 0.04 x10(3)/[facility] LABORATORY Blood specimen (specimen) 09/24/2016 9:56 AM EST 09/24/2016 10:04 AM EST Narrative Resulting Agency Comment Spec In Lab Alirio Esparza MD HEMATOLOGY ORDERABL ES [facility] [place] [address] * (ABNORMAL) Hemogram (09/24/2016 9:56 AM EST) WBC 10.1(H) 4.0 - 9.5 x10(3)/[facility] LABORATORY RBC 2.87(L) 4.00 - 5.21 x10(6)/[facility] LABORATORY Hemoglobin 9.4(L) 11.7 - 15.5 gm/dL [facility] Hematocrit 28.3(L) 35.7 - 45.8 % [facility] MCV 98.6(H) 82.6 - 94.4 fL [facility] MCH 32.8(H) 27.1 - 32.0 pg [facility] MCHC 33.2 31.7 - 35.0 gm/dL [facility] Platelets 141(L) 145 - 357 x10(3)/[facility] LABORATORY RDWSD 45.0 37.0 - 46.0 fL [facility] RDWCV 12.6 11.5 - 14.1 % [facility] MPV 9.4 7.6 - 12.9 fL [facility] nRBC % Auto 1.1 % [facility] nRBC Abs Auto 0.110(H) 0.000 - 0.000 x10(3)/[facility] LABORATORY Blood specimen (specimen) 09/24/2016 9:56 AM EST 09/24/2016 10:04 AM EST Narrative Resulting Agency Comment Spec In Lab Alirio Esparza MD HEMATOLOGY ORDERABL ES [facility] [place] [address] * (ABNORMAL) Basic Metabolic Panel (non-fasting) (09/24/2016 9:56 AM EST) Glucose Lvl 111 65 - 199 mg/dL [facility] Comment:Diabetes: >=200 mg/d L plus symptoms BUN 23(H) 8 - 18 mg/dL [facility] Comment:result rechecked-ART Creatinine 0.89 0.70 - 1.20 mg/dL [facility] Comment: Please note that the pediatric reference intervals supplied above were not validated at [facility]. Results from pediatric patients should be interpreted in conjunction to the patient's age, height and muscle mass. Sodium 138 135 - 145 mmol/L [facility] Potassium 4.2 3.5 - 5.0 mmol/L [facility] Comment: Please note: ??Patients with WBC >100,000 may have falsely elevated Potassium levels. ??For accurate Potassium quantification in these patients send serum separator tube (gold top) for subsequent determinations. ??Contact the Clinical Chemistry Laboratory if there are any questions. Chloride 98 98 - 107 mmol/L [facility] CO2 26 22 - 31 mmol/L [facility] Anion Gap 14 5 - 15 mmol/L [facility] Calcium 9.1 8.5 - 10.5 mg/dL [facility] Estimated GFR >60 >=60 [facility] [...] the following links into your internet browser. [email or web address] Blood specimen (specimen) 09/24/2016 9:56 AM EST 09/24/2016 10:04 AM EST Narrative Resulting Agency Comment Spec In Lab Alirio Esparza MD CHEMISTRY ORDERABLE S [facility] [place] [address] * XR Chest PA & Lateral (Generic) [...] EST) Potassium 4.5 3.5 - 5.0 mmol/L [facility] [...] Lab Alirio Esparza MD CHEMISTRY ORDERABLE S [facility] [place] [address] * POCT Glucose (09/22/2016 8:17 AM EST) POC Glucose 131 65 - 199 mg/dL [facility] Comment: Supplemental ranges: <140 mg/dL before meals <180 mg/dL all other times of the day Blood specimen (specimen) 09/22/2016 8:17 AM EST 09/22/2016 8:17 AM EST Narrative Authorizing Provider Result Slade Esparza MD POINT OF CARE TEST ORDERABLES [facility] [place] [address] * POCT Glucose (09/22/2016 4:01 AM EST) POC Glucose 135 65 - 199 mg/dL [facility] Comment: Supplemental ranges: <140 mg/dL before meals <180 mg/dL all other times of the day Blood specimen (specimen) 09/22/2016 4:01 AM EST 09/22/2016 4:01 AM EST Alirio Esparza MD POINT OF CARE TEST ORDERABLES Performing Organization Address [facility] Co de Phone Number [facility] [place] [address] * Scan, Peripheral Blood (09/22/2016 4:00 AM EST) Plat Estimate Normal [facility] RBC Morphology Abnormal [facility] Macrocytes 1-5 /HPF [facility] Giant Platelets Less than 1 /HPF [facility] Blood specimen (specimen) 09/22/2016 4:00 AM EST 09/22/2016 4:34 AM EST Narrative Resulting Agency Comment Spec In Lab Alirio Esparza MD HEMATOLOGY ORDERABL ES Performing Organization Address [facility] Co de Phone Number [facility] [place] [address] * Electrolytes panel (09/22/2016 4:00 AM EST) Sodium 145 135 - 145 mmol/L [facility] Potassium 4.4 3.5 - 5.0 mmol/L [facility] Comment: Please note: ??Patients with WBC >100,000 may have falsely elevated Potassium levels. ??For accurate Potassium quantification in these patients send serum separator tube (gold top) for subsequent determinations. ??Contact the Clinical Chemistry Laboratory if there are any questions. Chloride 107 98 - 107 mmol/L [facility] CO2 24 22 - 31 mmol/L [facility] Anion Gap 14 5 - 15 mmol/L [facility] Blood specimen (specimen) Venous Draw / Unknown 09/22/2016 4:00 AM EST 09/22/2016 4:34 AM EST Narrative Resulting Agency Comment Spec In Lab Alirio Esparza MD CHEMISTRY ORDERABLE S Performing Organization Address City/[facility] Co de Phone Number [facility] [place] [address] * (ABNORMAL) Differential, Automated (09/22/2016 4:00 AM EST) Neutrophils % 70.9 % [facility] Neutr Abs (ANC) 5.33 1.70 - 6.10 x10(3)/mc L [facility] Lymphocytes % 9.1 % [facility] Lymphocytes Abs 0.7(L) 0.9 - 3.2 x10(3)/[facility] Monocytes % 18.0 % [facility] Monocyte Abs 1.4(H) 0.3 - 0.9 x10(3)/[facility] Eosinophils % 0.0 % [facility] Eosinophils Abs 0.0 0.0 - 0.4 x10(3)/[facility] Basophils % 0.1 % [facility] Basophils Abs 0.0 0.0 - 0.1 x10(3)/[facility] Immature Gran % 1.90 % [facility] Comment: Immature granulocytes(IG's)percentage and absolute count will include metamyelocytes, myelocytes, and promyelocytes. Blood smears from CBCs yielding IG's will be scanned manually for concordance. If this scan disagrees with the automated IG or if promyelocytes are noted, a manual differential will be performed. Amanda Gran Abs 0.14(H) 0.00 - 0.04 x10(3)/[facility] Blood specimen (specimen) 09/22/2016 4:00 AM EST 09/22/2016 4:34 AM EST Narrative Resulting Agency Comment Spec In Lab Alirio Esparza MD HEMATOLOGY ORDERABL ES Performing Organization Address [facility]/ZIP Co de Phone Number [facility] [place] [address] * (ABNORMAL) Hemogram (09/22/2016 4:00 AM EST) [facility] WBC 7.5 4.0 - 9.5 x10(3)/[facility]AT[facility] RBC 2.93(L) 4.00 - 5.21 x10(6)/[facility] Hemoglobin 9.2(L) 11.7 - 15.5 gm/dL [facility] Hematocrit 28.0(L) 35.7 - 45.8 % [facility] MCV 95.6(H) 82.6 - 94.4 [facility] MCH 31.4 27.1 - 32.0 pg [facility] MCHC 32.9 31.7 - 35.0 gm/dL [facility] Platelets 161 145 - 357 x10(3)/[facility] RDWSD 44.0 37.0 - 46.0 [facility] RDWCV 12.6 11.5 - 14.1 % [facility] MPV 9.3 7.6 - 12.9 [facility] nRBC % Auto 0.3 % [facility] nRBC Abs Auto 0.020(H) 0.000 - 0.000 x10(3)/[facility] Blood specimen (specimen) 09/22/2016 4:00 AM EST 09/22/2016 4:34 AM EST Narrative Resulting Agency Comment Spec In Lab Alirio Esparza MD HEMATOLOGY ORDERABL ES Performing Organization Address [facility]/ZIP Co de Phone Number [facility] [place] [address] * (ABNORMAL) Cardiac Enzymes (09/22/2016 4:00 AM EST) [facility] Troponin-T 0.13(H) <=0.03 ng/mL [facility] Comment: 0.03 ng/mL: Represents the 99th percentile upper reference limit for normals. >0.03 ng/mL: Elevated cardiac troponin T level indicative of myocardial damage. Diagnosis of acute, evolving or recent MO requires a typical rise and gradual fall [...] consensus document of the Joint Society of Cardiology/[place] College of Cardiology Committee for the redefinition of myocardial infarction. ??Journal of the [place] College of Cardiology 2000; 36: 959-969] CK, Total 338(H) 0 - 160 unit/L [facility] Blood specimen (specimen) 09/22/2016 4:00 AM EST 09/22/2016 4:34 AM EST Narrative Resulting Agency Comment Spec In Lab Alirio Esparza MD CHEMISTRY ORDERABLE S Performing Organization Address City/State/[facility] Co de Phone Number [facility] [place] [address] * (ABNORMAL) Glucose, fasting (09/22/2016 4:00 AM EST) Glucose Fasting 137(H) 65 - 99 mg/dL [facility] Comment: ?Fasting* Glucose Interpretive [...] of Diabetes Mellitus, Position Statement from the [place] Diabetes Association. ??Diabetes Care, Volume 33, Supplement 1, Aug 2009 Blood specimen (specimen) 09/22/2016 4:00 AM EST 09/22/2016 4:34 AM EST Narrative Resulting Agency Comment Spec In Lab Alirio Esparza MD CHEMISTRY ORDERABLE S Performing Organization Address [facility] Co de Phone Number [facility] [place] [address] * (ABNORMAL) Creatinine (09/22/2016 4:00 AM EST) Creatinine 0.69(L) 0.70 - 1.20 mg/dL [facility] Comment: Please note that the pediatric reference intervals supplied above were not validated at [facility]. Results from pediatric patients should be interpreted in conjunction to the patient's age, height and muscle mass. Estimated GFR >60 >=60 [facility] [...] the following links into your internet browser. [email or web address] Blood specimen (specimen) 09/22/2016 4:00 AM EST 09/22/2016 4:34 AM EST Narrative Resulting Agency Comment Spec In Lab Alirio Esparza MD CHEMISTRY ORDERABLE S Performing Organization Address [facility] Co de Phone Number [facility] [place] [address] * BUN (09/22/2016 4:00 AM EST) BUN 10 8 - 18 mg/dL [facility] Blood specimen (specimen) 09/22/2016 4:00 AM EST 09/22/2016 4:34 AM EST Narrative Resulting Agency Comment Spec In Lab Alirio Esparza MD CHEMISTRY ORDERABLE S Performing Organization Address [facility] Co de Phone Number [facility] [place] [address] * POCT Glucose (09/21/2016 9:59 PM EST) POC Glucose 146 65 - 199 mg/dL [facility] Comment: Supplemental ranges: <140 mg/dL before meals <180 mg/dL all other times of the day Blood specimen (specimen) 09/21/2016 9:59 PM EST 09/21/2016 9:59 PM EST Alirio Esparza MD POINT OF CARE TEST ORDERABLES Performing Organization Address [facility] Co de Phone Number [facility] [place] [address] * POCT Glucose (09/21/2016 7:26 PM EST) POC Glucose 152 65 - 199 mg/dL [facility] Comment: Supplemental ranges: <140 mg/dL before meals <180 mg/dL all other times of the day Blood specimen (specimen) 09/21/2016 7:26 PM EST 09/21/2016 7:26 PM EST Alirio Esparza MD POINT OF CARE TEST ORDERABLES Performing Organization Address [facility] Co de Phone Number [facility] [place] [address] * POCT Glucose (09/21/2016 6:00 PM EST) POC Glucose 146 65 - 199 mg/dL [facility] Comment: Supplemental ranges: <140 mg/dL before meals <180 mg/dL all other times of the day Blood specimen (specimen) 09/21/2016 6:00 PM EST 09/21/2016 6:00 PM EST Alirio Esparza MD POINT OF CARE TEST ORDERABLES [facility] [place] [address] * (ABNORMAL) BLOOD GAS 2 ARTERIAL (09/21/2016 4:42 PM EST) pH Art 7.35(L) 7.35 - 7.45 [facility] pCO2 Art 48(H) 35 - 45 mmHg [facility] pO2 Art 108(H) 85 - 104 mmHg [facility] HCO3 Art 26.0 20.0 - 26.0 mmol/L [facility] BE Art 0.5 -3.0 - 3.0 mmol/L [facility] Hgb Blood Gas 10.4(L) 11.7 - 15.5 gm/dL [facility] O2HB Art 96.2 94.0 - 97.0 % [facility] COHB Art 0.0 % [facility] Comment: Nonsmokers: 0.5-1.5% COHB Smokers: Variable, but usually less than 10% Toxic: 20-30% COHB Lethal: Greater than 60% COHB METHB Art 0.7 <=1.5 % [facility] Na Whole Blood 139 135 - 145 mmol/L [facility] K Whole Blood 4.2 3.5 - 5.0 mmol/L [facility] Comment: Please note: Patients with WBC >100,000 may have falsely elevated Potassium levels. Contact the Clinical Chemistry Laboratory if there are any questions. ICa Whole Blood 1.13(L) 1.15 - 1.33 mmol/L [facility] Comment: Note: ??Total bilirubin higher than 20 mg/dL may lead to falsely low ionized calcium. CL Whole Blood 106 98 - 107 mmol/L [facility] Gluc Whole Bld 147 65 - 199 mg/dL [facility] Comment:Diabetes: >=200 mg/d L plus symptoms. Lactate WB 1.2 0.5 - 2.2 mmol/L [facility] FIO2 Art 40 % [facility] PF Ratio Art 270 [facility] Blood specimen (specimen) 09/21/2016 4:42 PM EST 09/21/2016 4:42 PM EST Alirio Esparza MD CHEMISTRY ORDERABLE S Performing Organization Address [facility]/ZIP Co de Phone Number [facility] [place] [address] * POCT Glucose (09/21/2016 4:07 PM EST) POC Glucose 150 65 - 199 mg/dL [facility] Comment: Supplemental ranges: <140 mg/dL before meals <180 mg/dL all other times of the day Blood specimen (specimen) 09/21/2016 4:07 PM EST 09/21/2016 4:07 PM EST Alirio Esparza MD POINT OF CARE TEST ORDERABLES Performing Organization Address [facility] Co de Phone Number [facility] [place] [address] * (ABNORMAL) Hemoglobin (09/21/2016 4:05 PM EST) Hemoglobin 9.9(L) 11.7 - 15.5 gm/dL [facility] Blood specimen (specimen) 09/21/2016 4:05 PM EST 09/21/2016 4:20 PM EST Narrative Resulting Agency Comment Spec In Lab Alirio Espraza MD HEMATOLOGY ORDERABL ES Performing Organization Address [facility] Co de Phone Number [facility] [place] [address] * Potassium (09/21/2016 4:05 PM EST) Potassium 4.6 3.5 - 5.0 mmol/L [facility] [...] MD CHEMISTRY ORDERABLE S Performing Organization Address [facility]/ZIP Co de Phone Number [facility] [place] [address] * POCT Glucose (09/21/2016 2:52 PM EST) POC Glucose 117 65 - 199 mg/dL [facility] Comment: Supplemental ranges: <140 mg/dL before meals <180 mg/dL all other times of the day Blood specimen (specimen) 09/21/2016 2:52 PM EST 09/21/2016 2:52 PM EST Alirio Esparza MD POINT OF CARE TEST ORDERABLES Performing Organization Address [facility] Co de Phone Number [facility] [place] [address] * POCT Glucose (09/21/2016 1:51 PM EST) POC Glucose 108 65 - 199 mg/dL [facility] Comment: Supplemental ranges: <140 mg/dL before meals <180 mg/dL all other times of the day Blood specimen (specimen) 09/21/2016 1:51 PM EST 09/21/2016 1:51 PM EST Alirio Esparza MD POINT OF CARE TEST ORDERABLES Performing Organization Address [facility] Co de Phone Number [facility] [place] [address] * POCT Glucose (09/21/2016 12:54 PM EST) POC Glucose 128 65 - 199 mg/dL [facility] Comment: Supplemental ranges: <140 mg/dL before meals <180 mg/dL all other times of the day Blood specimen (specimen) 09/21/2016 12:54 PM EST 09/21/2016 12:54 PM EST Narrative Authorizing Provider Result Slade Esparza MD POINT OF CARE TEST ORDERABLES Performing Organization Address [facility] Co de Phone Number [facility] [place] [address] * EKG 12 Lead (09/21/2016 12:26 PM EST) Pathologist [facility] Ventricular rate 87 BPM MUSE SYSTEM Atrial Rate 87 BPM MUSE SYSTEM P-R Interval 256 ms MUSE SYSTEM QRS Duration 90 ms MUSE SYSTEM Q-T Interval 406 ms MUSE SYSTEM QTC Calculated (Bezet) 488 ms MUSE SYSTEM Calculated P [place] 24 degrees MUSE SYSTEM Calculated R [place] 21 degrees MUSE SYSTEM Calculated T [place] -5 degrees MUSE SYSTEM INTERPRETATION Sinus rhythm with 1st degree A-V block Nonspecific T wave abnormality Prolonged QT Abnormal ECG When compared with ECG of 19-MAY-2016 11:43, OR interval has increased T wave inversion now evident in inferior and midanterior leads Confirmed by MD FRANKLYN, MARLEN ([id number]) on 09/21/2016 1:40:59 PM MUSE SYSTEM 09/21/2016 12:2 6 PM EST 09/21/2016 1:40 PM EST Alirio Esparza MD ECG ORDERABLES Performing Organization Address [facility] Co de Phone Number MUSE SYSTEM [...] course of the esophagus and below the [id number]. There is a right IJ PA catheter [...] the course of theesophagus and below the [id number]. There is a right IJ PA catheter [...] EST) pH Art 7.41 7.35 - 7.45 [facility] pCO2 Art 42 35 - 45 mmHg [facility] pO2 Art 356(H) 85 - 104 mmHg [facility] HCO3 Art 26.2(H) 20.0 - 26.0 mmol/L [facility] BE Art 1.6 -3.0 - 3.0 mmol/L [facility] Hgb Blood Gas 10.7(L) 11.7 - 15.5 gm/dL [facility] O2HB Art 98.1(H) 94.0 - 97.0 % [facility] COHB Art 0.3 % [facility] Comment: Nonsmokers: 0.5-1.5% COHB Smokers: Variable, but usually less than 10% Toxic: 20-30% COHB Lethal: Greater than 60% COHB METHB Art 0.8 <=1.5 % [facility] Na Whole Blood 140 135 - 145 mmol/L [facility] K Whole Blood 3.8 3.5 - 5.0 mmol/L [facility] Comment: Please note: Patients with WBC >100,000 may have falsely elevated Potassium levels. Contact the Clinical Chemistry Laboratory if there are any questions. ICa Whole Blood 1.15(L) 1.15 - 1.33 mmol/L [facility] Comment: Note: ??Total bilirubin higher than 20 mg/dL may lead to falsely low ionized calcium. CL Whole Blood 106 98 - 107 mmol/L [facility] Gluc Whole Bld 135 65 - 199 mg/dL [facility] Comment:Diabetes: >=200 mg/d L plus symptoms. Lactate WB 2.2 0.5 - 2.2 mmol/L [facility] FIO2 Art 100 % [facility] PF Ratio Art 356 [facility] Blood specimen (specimen) 09/21/2016 12:20 PM EST 09/21/2016 12:20 PM EST Alirio Esparza MD CHEMISTRY ORDERABLE S Performing Organization Address City/State/[facility] Co de Phone Number [facility] [place] [address] * (ABNORMAL) BLOOD GAS 2 ARTERIAL (09/21/2016 10:54 AM EST) pH Art 7.43 7.35 - 7.45 [facility] pCO2 Art 40 35 - 45 mmHg [facility] pO2 Art 297(H) 85 - 104 mmHg [facility] HCO3 Art 26.0 20.0 - 26.0 mmol/L [facility] BE Art 1.6 -3.0 - 3.0 mmol/L [facility] Hgb Blood Gas 8.6(L) 11.7 - 15.5 gm/dL [facility] O2HB Art 98.6(H) 94.0 - 97.0 % [facility] COHB Art 0.5 % [facility] Comment: Nonsmokers: 0.5-1.5% COHB Smokers: Variable, but usually less than 10% Toxic: 20-30% COHB Lethal: Greater than 60% COHB METHB Art 0.3 <=1.5 % [facility] Na Whole Blood 134(L) 135 - 145 mmol/L [facility] K Whole Blood 4.5 3.5 - 5.0 mmol/L [facility] Comment: Please note: Patients with WBC >100,000 may have falsely elevated Potassium levels. Contact the Clinical Chemistry Laboratory if there are any questions. ICa Whole Blood 1.16 1.15 - 1.33 mmol/L [facility] Comment: Note: ??Total bilirubin higher than 20 mg/dL may lead to falsely low ionized calcium. CL Whole Blood 104 98 - 107 mmol/L [facility] Gluc Whole Bld 240(H) 65 - 199 mg/dL [facility] Comment:Diabetes: >=200 mg/d L plus symptoms. Lactate WB 2.4(H) 0.5 - 2.2 mmol/L [facility] FIO2 Art 95 % [facility] Flow Art 0.7 LPM [facility] PF Ratio Art 313 [facility] Temp Art 36.7 Celsius [facility] Blood specimen (specimen) 09/21/2016 10:54 AM EST 09/21/2016 10:54 AM EST Alirio Esparza MD CHEMISTRY ORDERABLE S [facility] [place] [address] * Thrombin time (09/21/2016 10:50 AM EST) Thrombin Time 19 15 - 20 sec [facility] Comment: A prolongation in [...] MD HEMATOLOGY ORDERABLE S Performing Organization Address [facility] Co de Phone Number [facility] [place] [address] * Fibrinogen (09/21/2016 10:50 AM EST) Fibrinogen 228 180 - 510 mg/dL [facility] Comment: Called by: JONNATHAN, Read back by: MICHELLE ALEJANDRE_, Date/Time:09/21/16 11:11. A fibrinogen level >100 mg/dL is adequate for hemostasis in most patients without underlying bleeding disorders. Blood specimen (specimen) 09/21/2016 10:50 AM EST 09/21/2016 10:56 AM EST Narrative Resulting Agency Comment Spec In Lab Luis Enrique Quarles MD HEMATOLOGY ORDERABLE S Performing Organization Address [facility] de Phone Number [facility] [place] [address] * APTT (09/21/2016 10:50 AM EST) PTT 32 25 - 35 sec [facility] Comment: The recommended therapeutic range for full dose, unfractionated heparin at [facility] is 80 ? [...] MD HEMATOLOGY ORDERABLE S Performing Organization Address City/[facility] Co de Phone Number [facility] [place] [address] * (ABNORMAL) Prothrombin Time (09/21/2016 10:50 AM EST) PT 18.7(H) 12.0 - 15.0 sec [facility] Comment: An INR <2.0 [...] clinical circumstances. INR 1.5(H) 0.9 - 1.1 [facility] Blood specimen (specimen) 09/21/2016 10:50 AM EST 09/21/2016 10:56 AM EST Narrative Resulting Agency Comment Spec In Lab Luis Enrique Quarles MD HEMATOLOGY ORDERABLE S [facility] [place] [address] * (ABNORMAL) Hemogram (09/21/2016 10:50 AM EST) WBC 14.7(H) 4.0 - 9.5 x10(3)/[facility] RBC 2.40(L) 4.00 - 5.21 x10(6)/[facility] Hemoglobin 7.9(L) 11.7 - 15.5 gm/dL [facility] Hematocrit 23.2(L) 35.7 - 45.8 % [facility] Comment: This result has been called to MICHELLE GRIGSBY by ASHU MORENO on 09 21 2016 at 1102, and has been read back. MCV 96.7(H) 82.6 - 94.4 fL [facility] MCH 32.9(H) 27.1 - 32.0 pg [facility] MCHC 34.1 31.7 - 35.0 gm/dL [facility] Platelets 117(L) 145 - 357 x10(3)/[facility] RDWSD 42.6 37.0 - 46.0 [facility] RDWCV 12.1 11.5 - 14.1 % [facility] MPV 9.2 7.6 - 12.9 [facility] nRBC % Auto 0.1 % [facility] nRBC Abs Auto 0.020(H) 0.000 - 0.000 x10(3)/[facility] Blood specimen (specimen) 09/21/2016 10:50 AM EST 09/21/2016 10:56 AM EST Narrative Resulting Agency Comment Spec In Lab Luis Enrique Quarles MD HEMATOLOGY ORDERABLE S Performing Organization Address [facility] Co de Phone Number [facility] [place] [address] * Prepare Platelets, Apheresis (09/21/2016 10:30 AM EST) Dispensed? Yes [facility] Blood specimen (specimen) 09/21/2016 10:30 AM EST 09/21/2016 10:28 AM EST Alirio Esparza MD BLOOD BANK PRODUCT ORDERABLES Performing Organization Address [facility] Phone Number [facility] [place] [address] * (ABNORMAL) BLOOD GAS 2 ARTERIAL (09/21/2016 10:05 AM EST) pH Art 7.33(L) 7.35 - 7.45 [facility] pCO2 Art 54(Critic al) 35 - 45 mmHg [facility] Comment:Noted by supervisor instrument maintenance. pO2 Art 218(H) 85 - 104 mmHg [facility] HCO3 Art 27.9(H) 20.0 - 26.0 mmol/L [facility] BE Art 2.0 -3.0 - 3.0 mmol/L [facility] Hgb Blood Gas 8.6(L) 11.7 - 15.5 gm/dL [facility] O2HB Art 98.4(H) 94.0 - 97.0 % [facility] COHB Art 0.5 % [facility] Comment: Nonsmokers: 0.5-1.5% COHB Smokers: Variable, but usually less than 10% Toxic: 20-30% COHB Lethal: Greater than 60% COHB METHB Art 0.3 <=1.5 % [facility] Na Whole Blood 129(L) 135 - 145 mmol/L [facility] K Whole Blood 6.2(Criti gabrielle) 3.5 - 5.0 mmol/L [facility] Comment: Noted by supervisor instrument maintenance. Please note: Patients with WBC >100,000 may have falsely elevated Potassium levels. Contact the Clinical Chemistry Laboratory if there are any questions. ICa Whole Blood 0.95(L) 1.15 - 1.33 mmol/L [facility] Comment: Note: ??Total bilirubin higher than 20 mg/dL may lead to falsely low ionized calcium. CL Whole Blood 100 98 - 107 mmol/L [facility] Gluc Whole Bld 289(H) 65 - 199 mg/dL [facility] Comment:Diabetes: >=200 mg/d L plus symptoms. Lactate WB 2.2 0.5 - 2.2 mmol/L [facility] Temp Art 37.0 Celsius [facility] Blood specimen (specimen) 09/21/2016 10:05 AM EST 09/21/2016 10:05 AM EST Alirio Esparza MD CHEMISTRY ORDERABLE S [facility] [place] [address] * (ABNORMAL) BLOOD GAS 2 ARTERIAL (09/21/2016 9:44 AM EST) pH Art 7.22(Criti gabrielle) 7.35 - 7.45 [facility] Comment:Noted by supervisor instrument maintenance. pCO2 Art 70(Critica l) 35 - 45 mmHg [facility] Comment:Noted by supervisor instrument maintenance. pO2 Art 224(H) 85 - 104 mmHg [facility] HCO3 Art 27.8(H) 20.0 - 26.0 mmol/L [facility] BE Art 0.0 -3.0 - 3.0 mmol/L [facility] Hgb Blood Gas 8.7(L) 11.7 - 15.5 gm/dL [facility] O2HB Art 98.5(H) 94.0 - 97.0 % [facility] COHB Art 0.6 % [facility] Comment: Nonsmokers: 0.5-1.5% COHB Smokers: Variable, but usually less than 10% Toxic: 20-30% COHB Lethal: Greater than 60% COHB METHB Art 0.3 <=1.5 % [facility] Na Whole Blood 131(L) 135 - 145 mmol/L [facility] K Whole Blood 5.9(H) 3.5 - 5.0 mmol/L [facility] Comment: Please note: Patients with WBC >100,000 may have falsely elevated Potassium levels. Contact the Clinical Chemistry Laboratory if there are any questions. ICa Whole Blood 1.00(L) 1.15 - 1.33 mmol/L [facility] Comment: Note: ??Total bilirubin higher than 20 mg/dL may lead to falsely low ionized calcium. CL Whole Blood 101 98 - 107 mmol/L [facility] Gluc Whole Bld 227(H) 65 - 199 mg/dL [facility] Comment:Diabetes: >=200 mg/d L plus symptoms. Lactate WB 2.1 0.5 - 2.2 mmol/L [facility] Blood specimen (specimen) 09/21/2016 9:44 AM EST 09/21/2016 9:44 AM EST Alirio Esparza MD CHEMISTRY ORDERABLE S [facility] [place] [address] * (ABNORMAL) Hemoglobin (09/21/2016 9:42 AM EST) Hemoglobin 7.2(L) 11.7 - 15.5 gm/dL [facility] Blood specimen (specimen) 09/21/2016 9:42 AM EST 09/21/2016 9:51 AM EST Narrative Resulting Agency Comment Spec In Lab Alirio Esparza MD HEMATOLOGY ORDERABL ES [facility] [place] [address] * Platelet count (09/21/2016 9:42 AM EST) Platelets 159 145 - 357 x10(3)/mc L [facility] Plat Immature % 1.6 0.0 - 7.4 % [facility] Comment: Limitation of the Immature Platelet Fraction (IPF)-May be less reliable when the platelet count is less than 38g160/uL due to statistical imprecision. The IPF value [...] in a decreased state of production. References: [employer] The Clinical Value of the Immature Platelet Fraction (IPF) in Cell Recovery Document Number 10-1143 12/2010 [employer] The Role of the Immature Platelet Fraction (IPF) in the Differential Diagnosis of Thrombocytopenia, Document [id number] V05/12/14 P05/14 Blood specimen (specimen) 09/21/2016 9:42 AM EST 09/21/2016 9:51 AM EST Narrative Resulting Agency Comment Spec In Lab Alirio Esparza MD HEMATOLOGY ORDERABL ES Performing Organization Address [facility] Co de Phone Number [facility] [place] [address] * (ABNORMAL) Hematocrit (09/21/2016 9:42 AM EST) Hematocrit 21.6(L) 35.7 - 45.8 % [facility] Comment: This result has been called to MICHELLE ALEJANDRE by Serjio Frazier on 09 21 2016 at 0957, and has been read back. Blood specimen (specimen) 09/21/2016 9:42 AM EST 09/21/2016 9:51 AM EST Narrative Resulting Agency Comment Spec In Lab Alirio Esparza MD HEMATOLOGY ORDERABL ES Performing Organization Address [facility] de Phone Number [facility] [place] [address] * Fibrinogen (09/21/2016 9:42 AM EST) Fibrinogen 219 180 - 510 mg/dL [facility] Comment: Called by: JONNATHAN, Read back by: MICHELLE ALEJANDRE_, Date/Time:09/21/16 10:03_. A fibrinogen level >100 mg/dL is adequate for hemostasis in most patients without underlying bleeding disorders. Blood specimen (specimen) 09/21/2016 9:42 AM EST 09/21/2016 9:51 AM EST Narrative Resulting Agency Comment Spec In Lab Alirio Esparza MD HEMATOLOGY ORDERABL ES Performing Organization Address [facility] Co de Phone Number [facility] [place] [address] * (ABNORMAL) BLOOD GAS 2 ARTERIAL (09/21/2016 9:10 AM EST) pH Art 7.36 7.35 - 7.45 [facility] pCO2 Art 48(H) 35 - 45 mmHg [facility] pO2 Art 295(H) 85 - 104 mmHg [facility] HCO3 Art 26.0 20.0 - 26.0 mmol/L [facility] BE Art 0.5 -3.0 - 3.0 mmol/L [facility] Hgb Blood Gas 8.0(L) 11.7 - 15.5 gm/dL [facility] O2HB Art 98.3(H) 94.0 - 97.0 % [facility] COHB Art 1.0 % [facility] Comment: Nonsmokers: 0.5-1.5% COHB Smokers: Variable, but usually less than 10% Toxic: 20-30% COHB Lethal: Greater than 60% COHB METHB Art 0.3 <=1.5 % [facility] Na Whole Blood 135 135 - 145 mmol/L [facility] K Whole Blood 5.4(H) 3.5 - 5.0 mmol/L [facility] Comment: Please note: Patients with WBC >100,000 may have falsely elevated Potassium levels. Contact the Clinical Chemistry Laboratory if there are any questions. ICa Whole Blood 0.93(L) 1.15 - 1.33 mmol/L [facility] Comment: Note: ??Total bilirubin higher than 20 mg/dL may lead to falsely low ionized calcium. CL Whole Blood 102 98 - 107 mmol/L [facility] Gluc Whole Bld 195 65 - 199 mg/dL [facility] Comment:Diabetes: >=200 mg/d L plus symptoms. Lactate WB 1.8 0.5 - 2.2 mmol/L [facility] Temp Art 37.0 Celsius [facility] Blood specimen (specimen) 09/21/2016 9:10 AM EST 09/21/2016 9:10 AM EST Alirio Esparza MD CHEMISTRY ORDERABLE S [facility] [place] [address] * Surgical Pathology Report (09/21/2016 9:09 AM EST) FINAL DIAGNOSIS (AP) [id number] ?Location: 3T The signing pathologist has (i) [...] ?. (R1) ??ADELITA 09/24/2016 9:32 AM EST [facility] 09/21/2016 9:09 AM EST Alirio Esparza MD PATHOLOGY/CYTOLOGY ORDERABLES [facility] [place] [address] * Specimen to Pathology (surgical or derm) (09/21/2016 9:09 AM EST) AP Specimen 09/21/2016 9:09 AM EST 09/21/2016 9:09 AM EST Narrative [facility] - 09/21/2016 9:09 AM EST Specimen requisition ordered. ??Separate Pathology report to follow Alirio Esparza MD PATHOLOGY/CYTOLOGY ORDERABLES [facility] [place] [address] * (ABNORMAL) BLOOD GAS 2 ARTERIAL (09/21/2016 8:50 AM EST) pH Art 7.41 7.35 - 7.45 [facility] pCO2 Art 33(L) 35 - 45 mmHg [facility] pO2 Art 348(H) 85 - 104 mmHg [facility] HCO3 Art 20.6 20.0 - 26.0 mmol/L [facility] BE Art -4.1(L) -3.0 - 3.0 mmol/L [facility] Hgb Blood Gas 9.5(L) 11.7 - 15.5 gm/dL [facility] O2HB Art 98.8(H) 94.0 - 97.0 % [facility] COHB Art 0.3 % [facility] Comment: Nonsmokers: 0.5-1.5% COHB Smokers: Variable, but usually less than 10% Toxic: 20-30% COHB Lethal: Greater than 60% COHB METHB Art 0.3 <=1.5 % [facility] Na Whole Blood 137 135 - 145 mmol/L [facility] K Whole Blood 4.0 3.5 - 5.0 mmol/L [facility] Comment: Please note: Patients with WBC >100,000 may have falsely elevated Potassium levels. Contact the Clinical Chemistry Laboratory if there are any questions. ICa Whole Blood 1.04(L) 1.15 - 1.33 mmol/L [facility] Comment: Note: ??Total bilirubin higher than 20 mg/dL may lead to falsely low ionized calcium. CL Whole Blood 105 98 - 107 mmol/L [facility] Gluc Whole Bld 93 65 - 199 mg/dL [facility] Comment:Diabetes: >=200 mg/d L plus symptoms. Lactate WB 1.0 0.5 - 2.2 mmol/L [facility] Blood specimen (specimen) 09/21/2016 8:50 AM EST 09/21/2016 8:50 AM EST Alirio Esparza MD CHEMISTRY ORDERABLE S [facility] [place] [address] * (ABNORMAL) BLOOD GAS 2 ARTERIAL (09/21/2016 8:18 AM EST) pH Art 7.42 7.35 - 7.45 [facility] pCO2 Art 36 35 - 45 mmHg [facility] pO2 Art 283(H) 85 - 104 mmHg [facility] HCO3 Art 22.8 20.0 - 26.0 mmol/L [facility] BE Art -2.0 -3.0 - 3.0 mmol/L [facility] Hgb Blood Gas 12.6 11.7 - 15.5 gm/dL [facility] O2HB Art 99.0(H) 94.0 - 97.0 % [facility] COHB Art 0.6 % [facility] Comment: Nonsmokers: 0.5-1.5% COHB Smokers: Variable, but usually less than 10% Toxic: 20-30% COHB Lethal: Greater than 60% COHB METHB Art 0.0 <=1.5 % [facility] Na Whole Blood 144 135 - 145 mmol/L [facility] K Whole Blood 4.0 3.5 - 5.0 mmol/L [facility] Comment: Please note: Patients with WBC >100,000 may have falsely elevated Potassium levels. Contact the Clinical Chemistry Laboratory if there are any questions. ICa Whole Blood 1.22 1.15 - 1.33 mmol/L [facility] Comment: Note: ??Total bilirubin higher than 20 mg/dL may lead to falsely low ionized calcium. CL Whole Blood 106 98 - 107 mmol/L [facility] Gluc Whole Bld 102 65 - 199 mg/dL [facility] Comment:Diabetes: >=200 mg/d L plus symptoms. Lactate WB 1.2 0.5 - 2.2 mmol/L [facility] FIO2 Art 95 % [facility] Flow Art 1.1 LPM [facility] PF Ratio Art 298 [facility] Temp Art 35.6 Celsius [facility] Blood specimen (specimen) 09/21/2016 8:18 AM EST 09/21/2016 8:18 AM EST Alirio Esparza MD CHEMISTRY ORDERABLE S Performing Organization Address City/[facility]/ZIP Co de Phone Number [facility] [place] [address] * Prepare RBC (09/21/2016 7:05 AM EST) Dispensed? Yes [facility] Blood specimen (specimen) 09/21/2016 7:05 AM EST 09/21/2016 7:02 AM EST Alirio Esparza MD BLOOD BANK PRODUCT ORDERABLES Performing Organization Address [facility] Co de Phone Number [facility] [place] [address] * POCT Glucose (09/21/2016 6:42 AM EST) POC Glucose 104 65 - 199 mg/dL [facility] Comment: Supplemental ranges: <140 mg/dL before meals <180 mg/dL all other times of the day Blood specimen (specimen) 09/21/2016 6:42 AM EST 09/21/2016 6:42 AM EST Alirio Esparza MD POINT OF CARE TEST ORDERABLES Performing Organization Address [facility] Co de Phone Number [facility] [place] [address] documented in this encounter Visit Diagnoses Diagnosis [...] dose on Wed09/21/16 at 1230, Until Discontinued, Lucas teeth, Routine Given 09/25/2016 9:40 AM EST [...] if phenyleprine and/or vasopressin ineffective.Call pager # [phone] if initiated., Routine Rate/Dose Change 09/21/2016 2:27 [...] 2.0 L/min/M2. Maximum volume 2 L. Call dye house hand for additional fluid orders: pager #[phone]. Rate/Dose Verify 09/22/2016 10:00 AM EST 10 mL/hr 10 mL/hr Rate/Dose Change 09/22/2016 8:12 AM EST 10 mL/hr 10 mL/h r Rate/Dose Verify 09/21/2016 2:00 PM EST 100 mL/hr 100 mL/ hr sodium chloride 0.9% infusion 10-30 mL/hr, Intravenous, DAILY PRN, Starting on Wed09/21/16 at 1206, Until Wed09/22/16 at 1036, Side port TKO rate, per CV nursing protocol. Rate/Dose Verify 09/21/2016 5:00 PM EST 30 mL/hr 30 mL/hr Rate/Dose Verify 09/21/2016 4:00 PM EST 30 mL/hr 30 mL/h r Rate/Dose Verify 09/21/2016 3:00 PM EST 30 mL/hr 30 mL/h r sodium chloride 0.9% infusion 10-30 mL/hr, Intravenous, DAILY PRN, Starting on Wed09/21/16 at 1206, Until Wed09/22/16 at 1036, Side port TKO rate, per [facility] nrusing protocol. Rate/Dose Verify 09/22/2016 10:00 AM [...] at 0600)1600 (Due - Provider: Kendall Martínez [facility]) aspirin chewable tablet 81 mg(Linked [...] dose on Wed09/21/16 at 1230, Until Discontinued, Lucas teeth, Routine 0900 (Not Given - Provider: Elsa Miguel RN - Reason: Patient/family refused)2018 (Given - Provider: Federico Apple, VALDO) 0900 (Not Given - Provider: Marek Barnes [...] Miguel RN) 0828 (Given - Provider: Marek Barnes, VALDO) 0941 (Given - Provider: Joselyn Cacrees, VALDO) furosemide (LASIX) injection 20 mg (CANCELED) [...] 0817 (Given - Provider: Elsa Miguel RN) 0900 (Not Given - Provider: Marek Barnes RN - Reason: Patient/family refused) 0940 (Not Given - Provider: Joselyn Caceres, VALDO - Reason: Patient/family refused) meTOPROLOL (LOPRESSOR) tablet [...] Whitfield RN) 0941 (Given - Provider: Joselyn Caceres, VALDO) pantoprazole (PROTONIX) injection 40 mg(Linked Group 2) [...] Miguel RN) 08 (Given - Provider: Marek Barnes, VALDO) 0941 [...] Routine documented in this encounter Care Teams Chick Room Supervisor Relationship Specialty Start Date End Date Deborah Quiroga APRN PCP - General Family Medicine 03/24/16 02/04/23 documented as of this encounter
--- OUTSIDE RECORDS SUMMARY | 2024-02-22 14:15 | XMS_ITS | Encounter Summary ---
[place] [address] Care Team Providers Care Solid Waste Manager Name Role Phone Ashley Quirogan Cornelius ANURAG Primary Care Provider [phone] Reason for Visit * Reason Onset Date Comments Medical Care Coordination 09/14/2016 Encounter Details Date Type Department Care Team (Late st Contact Info) Description 09/14/2016 Telephone Hematology [place] [phone] Alexandrea Greenwood RN Medical Care Coordination Social [...] 09/14/2016 9:10 AM EST Message received from office secretary: Injection/Infusion Referral Call placed to [facility] Infusion Room Spoke charis Bragg. Services to be provided for pt are: Miles 09/16/16 Mahsa confirmed they would provide services to pt and would contact with appointment time. Pt aware to expect the phone call ??orders faxed to [phone]). documented in this encounter Plan of Treatment Upcoming Encounters Date Type Department Care Team (Late st Contact Info) Description 02/22/2024 4:15 PM EDT Office Visit Dermatology at [place] [address] [place] [address] Marek Bonilla MD [address] [place] [address] 06/05/2024 11:30 AM EST Office [place] [address] Magdalena Peralta MD [facility] [place] [address] documented as of this encounter Visit Diagnoses Not on filedocumented in this encounter Care Teams Solid Waste Manager Relationship Specialty Start Date End Date Deborah Quiroga APRN PCP - General Family Medicine 03/24/16 02/04/23 documented as of this encounter
--- OUTSIDE RECORDS SUMMARY | 2024-02-22 14:15 | XMS_ITS | Encounter Summary ---
Author Organization [facility] [place] [address] Care Team Providers Care Cocktail Lounge Manager Name Role Phone Deborah Quiroga APRN Primary Care Provider [phone] Encounter Details Date Type Department Care Team (Late st Contact Info) Description 08/04/2016 External Results Hematology [place] [address] Alexandrea Greenwood RN Neutropenia, unspecified [...] PM EDT Office Visit Dermatology at [address] [place] [address] Marek Bonilla MD [address] [facility] [facility] [place] [address] 06/05/2024 11:30 AM EST Office [place] [address] Magdalena Peralta MD [facility] [place] [address] documented as of this encounter Procedures Procedure [...] type documented in this encounter Care Teams Cocktail Lounge Manager Relationship Specialty Start Date End Date Deborah Quiroga, ORGANIZATIONAL DEVELOPMENT CONSULTANT PCP - General Family Medicine 03/24/16 02/04/23 documented as of this encounter
--- OUTSIDE RECORDS SUMMARY | 2024-02-22 14:15 | XMS_ITS | Encounter Summary ---
[place] [address] Care Team Providers Care Regulatory Compliance Specialist Name Role Phone Deborah Quiroga ANURAG Primary Care Provider [phone] Reason for Visit * Reason Onset Date Comments Medical Care Coordination 07/17/2016 Encounter Details Date Type Department Care Team ([facility] Contact Info) Description 07/17/2016 Telephone Hematology [place] [phone] Alexandrea Greenwood RN Medical Care Coordination Social [...] 07/17/2016 12:07 PM EST Message received from clerk secretary: Injection/Infusion Referral Call placed to [phone]). Spoke w/ Pasquale. Services to be provided for pt are: Labs @ 10am ([facility]) & Neulasta @ 11am on 07/20/16, CBC only on 07/30/16 Pasquale confirmed they would provide services to pt and I left [facility] for pt to call for appt info. Pt demographics, office note, med list and orders faxed to [facility] & [facility] documented in this encounter Plan of Treatment Upcoming Encounters Date Type Department Care Team (Late st Contact Info) Description 02/22/2024 4:15 PM EDT Office Visit Dermatology at [place] [address] [place] [address] Marek Bonilla MD [address] [place] [address] 06/05/2024 11:30 AM EST Office [place] [address] Magdalena Peralta MD [facility] [place] [address] documented as of this encounter Visit Diagnoses Not on filedocumented in this encounter Care Teams Regulatory Compliance Specialist Relationship Specialty Start Date End Date Deborah Quiroga, CONTINUITY READER PCP - General Family Medicine 03/24/16 02/04/23 documented as of this encounter
--- OUTSIDE RECORDS SUMMARY | 2024-02-22 14:15 | XMS_ITS | Encounter Summary ---
Author Organization [facility] [place] [address] Care Team Providers Care Wheel Loader Operator Name Role Phone Ashley Quirogan Sylvia ANURAG Primary Care Provider [phone] Encounter Details Date Type Department Care Team (Latest Contact Info) Description 08/18/2016 4:40 PM EST [place] [address] Aortic valve stenosis, unspecified etiology [...] PM EDT Office Visit Dermatology at [address] [place] [phone] Marek Bonilla MD [address] [facility] [place] [address] 06/05/2024 11:30 AM EST Office [place] [address] Magdalena Peralta MD [facility] [place] [address] documented as of this encounter Procedures Procedure Name Priority Date/Time Associated Diagnosis Comments ABORH RECHECK STATUS Routine 08/18/2016 4:50 PM EST TYPE AND SCREEN, SDP (FUTURE SURGERY, [facility] SAME DAY PROGRAM ONLY) Routine 08/18/2016 4:50 [...] 4:50 PM EST) ABORH Type Recheck Completed [facility] Blood specimen (specimen) 08/18/2016 4:50 PM EST 08/18/2016 5:27 PM EST Narrative Resulting Agency Comment Spec In Lab Alirio Esparza MD BLOOD BANK LAB [place] Performing Organization Address [facility] Co de Phone Number [facility] [place] [address] * Antibody screen (08/18/2016 4:50 PM EST) Ab Screen Interp Negative [facility] Expires at 2359 on: 09/24/2016 [facility] Comment: Corrected from 09/17/16 12:00 [Unknown] on 09/09/16 02:32 by Shireen Treviño Blood specimen (specimen) 08/18/2016 4:50 PM EST 08/18/2016 5:11 PM EST Narrative Resulting Agency Comment Spec In Lab Alirio Esparza MD BLOOD BANK LAB [place] Performing Organization Address City/[facility]/ZIP Co de Phone Number [facility] [place] [address] * ABO/Rh Typing (08/18/2016 4:50 PM EST) ABORH Type B Pos [facility] Blood specimen (specimen) 08/18/2016 4:50 PM EST 08/18/2016 5:11 PM EST Narrative Resulting Agency Comment Spec In Lab Alirio Esparza MD BLOOD BANK LAB [place] [facility] [place] [address] * Basic Metabolic Panel (non-fasting) (08/18/2016 4:50 PM EST) Glucose Lvl 82 65 - 199 mg/dL [facility] Comment:Diabetes: >=200 mg/d L plus symptoms BUN 12 8 - 18 mg/dL [facility] Creatinine 0.87 0.70 - 1.20 mg/dL [facility] Comment: Please note that the pediatric reference intervals supplied above were not validated at [facility]. Results from pediatric patients should be interpreted [...] [facility] Estimated GFR >60 >=60 [facility] Comment: This estimated GFR (eGFR) [...] the following links into your internet browser. [email or web address] Blood specimen (specimen) 08/18/2016 4:50 PM EST 08/18/2016 5:03 PM EST Narrative Resulting Agency Comment Spec In Lab Alirio Esparza MD CHEMISTRY ORDERABLE S [facility] [place] [address] documented in this encounter Visit Diagnoses Diagnosis Aortic valve stenosis, unspecified etiology documented in this encounter Care Teams Wheel Loader Operator Relationship Specialty Start Date End Date Deborah Quiroga APRN PCP - General Family Medicine 03/24/16 02/04/23 documented as of this encounter
--- OUTSIDE RECORDS SUMMARY | 2024-02-22 14:15 | XMS_ITS | Encounter Summary ---
Author Organization [facility] [place] [address] Care Team Providers Care Dental Surgeon Name Role Phone Deborah Quiroga APRN Primary Care Provider [phone] Encounter Details Date Type Department Care Team (Late st Contact Info) Description 09/17/2016 External Results Hematology [place] [address] Alexandrea Greenwood RN Neutropenia, unspecified [...] PM EDT Office Visit Dermatology at [address] [place] [address] Marek Bonilla MD [address] [facility] [place] [address] 06/05/2024 11:30 AM EST Office [place] [address] Magdalena Peralta MD [facility] [place] [address] documented as of this encounter Procedures Procedure [...] type documented in this encounter Care Teams Dental Surgeon Relationship Specialty Start Date End Date Deborah Quiroga, ELECTROPLATER APPRENTICE PCP - General Family Medicine 03/24/16 02/04/23 documented as of this encounter
--- OUTSIDE RECORDS SUMMARY | 2024-02-22 14:15 | XMS_ITS | Encounter Summary ---
[place] [address] Care Team Providers Care Contracting Executive Name Role Phone Deborah Quiroga APRN Primary Care Provider [phone] Reason for Visit * Reason Onset Date Comments Prior Authorization 09/11/2016 Neulasta Encounter Details Date Type Department Care Team (Late st Contact Info) Description 09/11/2016 Telephone Hematology [place] [phone] Monica Wick Prior Authorization (Neulasta ) Social [...] AM EST Prior Auth for Neulasta (Approved) [facility] is a covered facility under the members plan. ID# [id number] Call placed to [phone] Rationale: Can you please start a PA for this pt to receive as outpatient at [facility] on 09/16/16? 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 ??Her last ANC was 0.56 (or 560) on 08/04/16. ??This will need to be approved through her medical as out patient. J code for neulasta. ?? [id number]. Spoke w/ Anna Marie Call Reference [id number] Copay: $ Deductible is not met, patient will have out of pocket costs until deductible is met. documented in this encounter Plan of Treatment Upcoming Encounters Date Type Department Care Team (Late st Contact Info) Description 02/22/2024 4:15 PM EDT Office Visit Dermatology at [place] [address] [place] [address] Marek Bonilla MD [address] [facility] [place] [address] 06/05/2024 11:30 AM EST Office [place] [address] Magdalena Peralta MD [facility] [place] [address] documented as of this encounter Visit Diagnoses Not on filedocumented in this encounter Care Teams Contracting Executive Relationship Specialty Start Date End Date Deborah Quiroga APRN PCP - General Family Medicine 03/24/16 02/04/23 documented as of this encounter
--- OUTSIDE RECORDS SUMMARY | 2024-02-22 14:15 | XMS_ITS | Encounter Summary ---
Author Organization [facility] [place] [address] Care Team Providers Care Countersinker Balance Screw Hole Name Role Phone Deborah Quiroga APRN Primary Care Provider [phone] Encounter Details Date Type Department Care Team (Late st Contact Info) Description 07/31/2016 External Results Hematology [place] [address] Alexandrea Greenwood RN Neutropenia, unspecified [...] PM EDT Office Visit Dermatology at [address] [place] [address] Marek Bonilla MD [address] [facility] [place] [address] 06/05/2024 11:30 AM EST Office [place] [address] Magdalena Peralta MD [facility] DR [place] [address] documented as of this encounter Procedures Procedure [...] type documented in this encounter Care Teams Countersinker Balance Screw Hole Relationship Specialty Start Date End Date Deborah Quiroga, INNER DIAMETER GRINDER TOOL PCP - General Family Medicine 03/24/16 02/04/23 documented as of this encounter
--- OUTSIDE RECORDS SUMMARY | 2024-02-22 14:15 | XMS_ITS | Encounter Summary ---
Author Organization [facility] Address [facility] [place] [address] Care Team Providers Care Wood Boring Machine Operator Name Role Phone Ashley Quirogan Cornelius ANURAG Primary Care Provider [phone] Encounter Details Date Type Department Care Team (Late st Contact Info) Description 08/11/2016 Telephone Hematology and Oncology at [facility] [place] [phone] Markel Borjas MD [facility] [place] [address] Social History Tobacco Use Types Packs/Day Years [...] EDT Office Visit Dermatology at [place] [address] [place] [address] Marek Bonilla MD [address] [facility] [place] [address] 06/05/2024 11:30 AM EST Office [place] [address] Magdalena Peralta MD [facility] [place] [address] documented as of this encounter Visit Diagnoses Not on filedocumented in this encounter Care Teams Wood Boring Machine Operator Relationship Specialty Start Date End Date Deborah Quiroga APRN PCP - General Family Medicine 03/24/16 02/04/23 documented as of this encounter
--- OUTSIDE RECORDS SUMMARY | 2024-02-22 14:15 | XMS_ITS | Encounter Summary ---
Author Organization [place] [address] Care Team Providers Care Immigration Attorney Name Role Phone Deborah Quiroga APRN Primary Care Provider [phone] Encounter Details Date Type Department Care Team (Late st Contact Info) Description 07/22/2016 External Results Hematology [place] [address] Alexandrea Greenwood RN Neutropenia, unspecified [...] PM EDT Office Visit Dermatology at [address] [place] [address] Marek Bonilla MD [address] [facility] [place] [address] 06/05/2024 11:30 AM EST Office [place] [address] Magdalena Peralta MD [facility] [place] [address] documented as of this encounter Procedures Procedure Name Priority Date/Time Associated Diagnosis Comments COPPER, SERUM Routine 07/20/2016 10:30 AM EST Neutropenia, unspecified type CMV PCR, QUANTITATIVE Routine 07/20/2016 10:30 AM EST Neutropenia, unspecified type MONONUCLEOSIS SCREEN (APD/JEANNINE/[facility]) Routine 07/20/2016 10:30 AM EST Neutropenia, unspecified type CBC (WITH DIFF) Routine 07/20/2016 10:30 AM EST Neutropenia, unspecified type documented in this encounter Results * Copper, serum (07/20/2016 10:30 AM EST) Copper 1.09 0.75 - 1.45 EXTERNAL LAB Blood specimen (specimen) 07/20/2016 10:30 AM EST Markel Borjas MD CHEMISTRY ORDERABL ES Performing Organization Address [facility]/ZIP Co de Phone Number EXTERNAL LAB * CMV PCR, Quantitative (07/20/2016 10:30 AM EST) CMV PCR,Quantitati ve undetected EXTERNAL LAB Blood specimen (specimen) 07/20/2016 10:30 AM EST Markel Borjas MD IMMUNOLOGY ORDERAB LES EXTERNAL LAB * Mononucleosis Screen (07/20/2016 10:30 AM EST) [place] Screen neg neg - neg EXTERNAL LAB Blood specimen (specimen) 07/20/2016 10:30 AM EST Markel Bojras MD CHEMISTRY ORDERABL ES Performing Organization Address [facility]/ZIP Co de Phone Number EXTERNAL LAB * [...] type documented in this encounter Care Teams Immigration Attorney Relationship Specialty Start Date End Date Deborah Quiroga, CAR WORKER HELPER PCP - General Family Medicine 03/24/16 02/04/23 documented as of this encounter
--- OUTSIDE RECORDS SUMMARY | 2024-02-22 14:15 | XMS_ITS | Encounter Summary ---
Author Organization [facility] [place] [address] Care Team Providers Care Vehicle Maintenance Technician Name Role Phone Junaid, Deborah Shields APRN Primary Care Provider [phone] Reason for Visit * Auth/Cert Specialty Diagnoses / Procedures Referred By Crispin t Referred To Contact Diagnoses Aortic stenosis Procedures PRO REPLACE AORT VALV, PROSTH VALV @REPLACE AORTIC VALVE, OPEN, W\CPB, W\PROSTHETIC VALVE (WRVU 41.32) Referral ID Status Reason Start Date Expiration Date Visits Re quested Visits Authorized [id number] 1 1 Encounter Details Date Type Department Care Team (Late st Contact Info) Description 09/21/2016 7:25 AM EST Anesthesia [place] [address] Luis Enrique Quarles MD [facility] [place] [address] Henrik Cooper MD [facility] [place] [address] Anesthesia Record Procedure Summary Procedure Name Responsible [...] 0819 Sternotomy 0844 CV Bypass init 1009 Guide Plant 1014 An Clamp Remove 1031 CP Bypass [...] Tube 09/21/16 (#28 angled chest tube to [place]: left: pericardial); Left; 09/22/16; 1119 09/21/16 0000 by Toshia Alejandre RN 09/22/16 1119 by Vero Bonilla RN Chest Tube 09/21/16 (#28 straig ht chest tube to [place]; right: mediastinal'); Right; mediastinum; 09/22/16; 1118 09/21/16 0000 by Toshia Alejandre RN 09/22/16 1118 by Vero Bonilla, VALDO (RETIRED) Peripheral IV Line - Single Lumen 09/21/16; 0648; metacarpal vein (top of hand), left; weaz-zoz-pjaler catheter system; 20 gauge; valdo Arteaga; 09/23/16; [...] Cooper MD - 09/21/2016 6:50 PM EST [facility] Department of Anesthesiology Post-procedure Note Patient: Purnima Thacker Procedure Summary Date Anesthesia Start Anesthesia Stop Room / Location 09/21/16 07 1152 [facility] OR 16 / [facility] MAIN OR Procedure Diagnosis Surgeon Responsible Provider @REPLACE AORTIC VALVE, OPEN, W\CPB, W\PROSTHETIC VALVE (WRVU 41.32) (N/A Chest); @AORTOPLASTY FOR SUPRAVALVULAR STENOSIS (WRVU 29.33) (N/A Chest) () Alirio Francisco MD Clark, Jeffrey A, MD All Anesthesia Providers: Anesthesiologist: Luis Enrique Quarles MD Laser/Electro Optics Technician: Henrik Cooper MD Last (1hr) Vitals: BP Temp 36.1 ??C (97 ??F) (09/21/16 1800) Pulse 79 (09/21/16 1800) Resp 11 (09/21/16 1800) SpO2 98 % (09/21/16 1800) Patient Location: [facility] Level of Consciousness: Sedated (Pharmacologic/Intentional) Pain [...] EDT Office Visit Dermatology at [place] [address] [place] [address] Marek Bonilla MD [address] [facility] [place] [address] 06/05/2024 11:30 AM EST Office [place] [address] Magdalena Peralta MD [facility] [place] [address] documented as of this encounter Visit Diagnoses [...] mg documented in this encounter Care Teams Vehicle Maintenance Technician Relationship Specialty Start Date End Date Deborah Quiroga, FIRE SYSTEMS INSPECTOR PCP - General Family Medicine 03/24/16 02/04/23 documented as of this encounter
--- OUTSIDE RECORDS SUMMARY | 2024-02-22 14:16 | XMS_ITS | Encounter Summary ---
Author Organization [facility] [place] [address] Care Team Providers Care Asset Protection Officer Name Role Phone EitanDanni ANURAG Primary Care Provider [phone] Encounter Details Date Type Department Care Team (Late st Contact Info) Description 01/22/2014 Telephone Cardiology at [address] [phone] Cnythia Arrington LPN Social History Tobacco Use Types [...] LPN - 01/23/2014 2:39 PM EDT This machine sign writer did not receive a call back from [...] PM EDT Office Visit Dermatology at [place] [address] [place] [address] Marek Bonilla MD [address] [facility] [place] [address] 06/05/2024 11:30 AM EST Office [place] [address] Magdalena Peralta MD [facility] [place] [address] documented as of this encounter Visit Diagnoses Not on filedocumented in this encounter Care Teams Asset Protection Officer Relationship Specialty Start Date End Date Danni Laird APRN [address] [place] [address] PCP - General 01/23/14 11/11/14 documented as of this encounter
--- OUTSIDE RECORDS SUMMARY | 2024-02-22 14:16 | XMS_ITS | Encounter Summary ---
Author Organization [facility] Address [facility] [place] [address] Care Team Providers Care Ball Thread Machine Tender Name Role Phone Mitchell Wilkes MD Primary Care Provider [phone] Encounter Details Date Type Department Care Team (Late st Contact Info) Description 01/19/2014 Orders Only Cardiology at [address] [address] Chele Randolph, [place] [facility] [place] [address] Cardiomyopathy (Primary Dx) Social History Tobacco Use [...] 4:15 PM EDT Office Visit Dermatology at [place] [address] [address] Marek Bonilla MD [address] [facility] [place] [address] 06/05/2024 11:30 AM EST Office [place] [address] Magdalena Peralta MD [facility] [place] [address] documented as of this encounter Procedures Procedure [...] cardiomyopathies documented in this encounter Care Teams Ball Thread Machine Tender Relationship Specialty Start Date End Date Mitchell Wilkes MD [facility] PCP - General 06/24/10 01/19/14 documented as of this encounter
--- OUTSIDE RECORDS SUMMARY | 2024-02-22 14:16 | XMS_ITS | Encounter Summary ---
Author Organization [facility] Address [facility] [place] [address] Care Team Providers Care Senior Accounting Specialist Name Role Phone JunaidAshley hargrovezac Shields APRN Primary Care Provider [phone] Reason for Visit * Auth/Cert Specialty Diagnoses / Procedures Referred By Crispin t Referred To Contact Diagnoses AVS Procedures CARDIAC CATHETERIZATION Referral ID Status Reason Start Date Expiration Date Visits Re quested Visits Authorized [id number] 1 1 Encounter Details Date Type Department Care Team (Late st Contact Info) Description 06/03/2016 6:32 AM EDT - 06/03/2016 1:10 PM EDT Hospital En[place] [address] Anjum Oliveros II, MD [facility] [place] [address] Mario Alberto Escobedo MD [facility] [place] [address] Aortic valve stenosis, unspecified etiology; Nonrheumatic aortic [...] by your doctor, do not take any ijqr-pql-iasgofv medicinesor herbal preparations without first discussing this with your doctor or pharmacist. There is the possibility of side effects and interactions when these are combined. Follow Up Care Who to call with questions or problems If there are any questions or problems that you think might be related to your cardiac cath or angioplasty, contact the transitional living specialist button broacher by calling [facility] at . * Patient Instructions* Felicia Corrigan - 06/03/2016 9:33 AM EDT Cardiology Instructions Call your doctor if: Chest pain, dyspnea, pain or swelling in legs occurs. If you have non-emergent questions between now and the time of your follow up appointments: -During 8am-5pm Wednesday through Wednesday call [phone] to speak with a nurse in the cardiology clinic -All other times call [phone] and ask to speak to the gore stitcher button broacher. MEDICATIONS - restart your spironolactone, discontinue prior [...] Appointments: Primary care provider: Cardiology: Deborah Hahn, BEE RANCHER [phone] Follow up as planned or as needed. Dr. Esparza [phone] Other follow-up appointment: Hematology - Dr. Mario [...] PM EDT Office Visit Dermatology at [address] [place] [address] Marek Bonilla MD [address] [facility] [place] [address] 06/05/2024 11:30 AM EST Office [place] [address] Magdalena Peralta MD [facility] [place] [address] documented as of this encounter Procedures Procedure [...] Escobedo MD CHEMISTRY ORDERABLES Performing Organization Address City/State/[facility] Co de Phone Number [facility] [place] [address] * Methylmalonic acid, serum (06/03/2016 11:45 AM EDT) Methylmalonic Acid 0.21 <=0.40 nmol/mL [facility] Comment: Test Performed by: [facility] - [address] [address] Oil Field Equipment Mechanic: Raymond Chaudhry II, M.D., Ph.D. Blood specimen (specimen) 06/03/2016 11:45 AM EDT 06/03/2016 1:57 PM EDT Narrative Resulting Agency Comment Spec In Lab Mario Alberto Escobedo MD CHEMISTRY ORDERABLES Performing Organization Address City/State/[facility] Co de Phone Number [facility] [place] [address] * Granulocyte Antibody (06/03/2016 11:45 AM EDT) [facility] Granulocyte Ab Negative Not Applicable [facility] Comment: ADDITIONAL INFORMATION Method: Immunofluorescent Assay Performing Laboratory CLIA# [id number] This test was developed and its performance characteristics determined by [facility] in a manner consistent with CLIA requirements. This test has not been cleared or approved by the U.S. Food and Drug Administration. Test Performed by: [address] [address] [employer] Field Equipment Mechanic: Raymond Chaudhry II, M.D., Ph.D. Blood specimen (specimen) 06/03/2016 11:45 AM EDT 06/03/2016 1:57 PM EDT Narrative Resulting Agency Comment Spec In Lab Mario Alberto Escobedo MD IMMUNOLOGY ORDERABLE S Performing Organization Address [facility] Co de Phone Number [facility] [place] [address] * TSH (06/03/2016 11:45 AM EDT) [facility] TSH 2.18 0.27 - 4.20 mcIU/mL [facility] Blood specimen (specimen) 06/03/2016 11:45 AM EDT 06/03/2016 12:11 PM EDT Narrative Resulting Agency Comment Spec In Lab Mario Alberto Escobedo MD CHEMISTRY ORDERABLES Performing Organization Address [facility] Co de Phone Number [facility] [place] [address] * Homocysteine Total, Plasma (06/03/2016 11:45 AM EDT) [facility] Homocyst Tot 9 <=15 mcmol/L [facility] Blood specimen (specimen) 06/03/2016 11:45 AM EDT 06/03/2016 12:11 PM EDT Narrative Resulting Agency Comment Spec In Lab Mario Alberto Escobedo MD CHEMISTRY ORDERABLES Performing Organization Address City/[facility]/ZIP Co de Phone Number [facility] [place] [address] * Folate, serum (06/03/2016 11:45 AM EDT) Folate Lvl >20.0 4.8 - 24.2 ng/mL [facility] Blood specimen (specimen) 06/03/2016 11:45 AM EDT 06/03/2016 12:04 PM EDT Narrative Resulting Agency Comment Spec In Lab Mario Alberto Escobedo MD CHEMISTRY ORDERABLES Performing Organization Address [facility] Co de Phone Number [facility] [place] [address] * (ABNORMAL) Sedimentation rate (06/03/2016 11:45 AM EDT) Sed Rate 41(H) 0 - 20 mm/hr [facility] Blood specimen (specimen) 06/03/2016 11:45 AM EDT 06/03/2016 12:04 PM EDT Narrative Resulting Agency Comment Spec In Lab Mario Alberto Escobedo MD HEMATOLOGY ORDERABLE S Performing Organization Address City/[facility]/ZIP Co de Phone Number [facility] [place] [address] * Lactate Dehydrogenase (06/03/2016 11:45 AM EDT) LDH 164 110 - 220 unit/L [facility] Blood specimen (specimen) 06/03/2016 11:45 AM EDT 06/03/2016 12:11 PM EDT Narrative Resulting Agency Comment Spec In Lab Mario Alberto Escobedo MD CHEMISTRY ORDERABLES [facility] [place] [address] * Comprehensive metabolic panel (non-fasting) (06/03/2016 11:45 AM EDT) Glucose Lvl 90 65 - 199 mg/dL [facility] Comment:Diabetes: >=200 mg/d L plus symptoms BUN 11 8 - 18 mg/dL [facility] Creatinine 0.83 0.70 - 1.20 mg/dL [facility] Comment: Please note that the pediatric reference intervals supplied above were not validated at [facility]. Results from pediatric patients should [...] [facility] Estimated GFR >60 >=60 [facility] Comment: This estimated GFR [...] the following links into your internet browser. [email or web address] Blood specimen (specimen) 06/03/2016 11:45 AM EDT 06/03/2016 12:11 PM EDT Narrative Resulting Agency Comment Spec In Lab Mario Alberto Escobedo MD CHEMISTRY ORDERABLES [facility] [place] [address] documented in this encounter Visit Diagnoses Diagnosis [...] Hernandez) documented in this encounter Care Teams Senior Accounting Specialist Relationship Specialty Start Date End Date Deborah Quiroga, ANURAG PCP - General Family Medicine 03/24/16 02/04/23 documented as of this encounter
--- OUTSIDE RECORDS SUMMARY | 2024-02-22 14:16 | XMS_ITS | Encounter Summary ---
[place] [address] Care Team Providers Care Clinical Trial Specialist Name Role Phone Ashley Quirogazac Shields APRN Primary Care Provider [phone] Encounter Details Date Type Department Care Team (Latest Contact Info) Description 05/19/2016 11:20 AM EDT Laboratory [place] [address] Nonrheumatic aortic valve stenosis Social [...] PM EDT Office Visit Dermatology at [address] [place] [address] Marek Bonilla MD [address] [address] 06/05/2024 11:30 AM EST Office [place] [address] Magdalena Peralta MD [facility] [place] [address] documented as of this encounter Procedures Procedure Name Priority Date/Time Associated Diagnosis Comments SCAN, PERIPHERAL BLOOD Routine 05/19/2016 11:32 AM EDT HEMOGRAM Routine 05/19/2016 11:32 AM EDT Nonrheumatic aortic valve stenosis DIFFERENTIAL, AUTOMATED Routine 05/19/2016 11:32 AM EDT Nonrheumatic aortic valve stenosis TYPE AND SCREEN, SDP ([place], [facility] [place]) Routine 05/19/2016 [...] (05/19/2016 11:32 AM EDT) Plat Estimate Normal [facility] RBC Morphology Normal [facility] Blood specimen (specimen) 05/19/2016 11:32 AM EDT 05/19/2016 11:41 AM EDT Narrative Resulting Agency Comment Spec In Lab Alirio Esparza MD HEMATOLOGY ORDERABL ES [facility] [place] [address] * (ABNORMAL) Differential, Automated (05/19/2016 11:32 AM EDT) Neutrophils % 25.9 % [facility] Neutr Abs (ANC) 0.42(Crit ical) 1.70 - 6.10 x10(3)/mc L [facility] Comment: This result has been called to DR ALIRIO ESPARZA by Alivia Ibarra on 05 19 2016 at 1228, and has been read back. Lymphocytes % 59.9 % [facility] Lymphocytes Abs 1.0 0.9 - 3.2 x10(3)/[facility] Monocytes % 13.0 % [facility] Monocyte Abs 0.2(L) 0.3 - 0.9 x10(3)/[facility] Eosinophils % 0.6 % [facility] Eosinophils Abs 0.0 0.0 - 0.4 x10(3)/[facility] Basophils % 0.6 % [facility] Basophils Abs 0.0 0.0 - 0.1 x10(3)/[facility] Immature Gran % 0.00 % [facility] Comment: Immature granulocytes(IG's)percentage and absolute count will include metamyelocytes, myelocytes, and promyelocytes. Blood smears from CBCs yielding IG's will be scanned manually for concordance. If this scan disagrees with the automated IG or if promyelocytes are noted, a manual differential will be performed. Amanda Gran Abs 0.00 0.00 - 0.04 x10(3)/[facility] Blood specimen (specimen) 05/19/2016 11:32 AM EDT 05/19/2016 11:41 AM EDT Narrative Resulting Agency Comment Spec In Lab Alirio Esparza MD HEMATOLOGY ORDERABL ES [facility] [place] [address] * (ABNORMAL) Hemogram (05/19/2016 11:32 AM EDT) WBC 1.6(Critic al) 4.0 - 9.5 x10(3)/[facility] Comment: This result has been called to DR ALIRIO ESPARZA by Alivia Ibarra on 05 19 2016 at 1228, and has been read back. RBC 3.96(L) 4.00 - 5.21 x10(6)/mc L [facility] Hemoglobin 12.5 11.7 - 15.5 gm/dL [facility] Hematocrit 37.9 35.7 - 45.8 % [facility] [...] MD HEMATOLOGY ORDERABL ES Performing Organization Address City/State/[facility] Co de Phone Number [facility] [place] [address] * Antibody screen (05/19/2016 11:32 AM EDT) Ab Screen Interp Negative [facility] Expires at 0890 on: 07/03/2016 [facility] Comment: Corrected from 06/11/16 12:00 [Unknown] on 06/09/16 05:51 by Bethanie Tomlinson I.. Corrected from 07/03/16 12:00 [Unknown] on 05/21/16 06:00 by Shelia Barrera Blood specimen (specimen) 05/19/2016 11:32 AM EDT 05/19/2016 11:35 AM EDT Narrative Resulting Agency Comment Spec In Lab Alirio Esparza MD BLOOD BANK LAB [place] Performing Organization Address City/[facility]/ZIP Co de Phone Number [facility] [place] [address] * ABO/Rh Typing (05/19/2016 11:32 AM EDT) ABORH Type B Pos [facility] Blood specimen (specimen) 05/19/2016 11:32 AM EDT 05/19/2016 11:35 AM EDT Narrative Resulting Agency Comment Spec In Lab Alirio Esparza MD BLOOD BANK LAB [place] Performing Organization Address [facility] Co de Phone Number [facility] [place] [address] * Basic Metabolic Panel (non-fasting) (05/19/2016 11:32 AM EDT) [facility] Signature Glucose Lvl 86 65 - 199 mg/dL [facility] Comment:Diabetes: >=200 mg/d L plus symptoms BUN 13 8 - 18 mg/dL [facility] Creatinine 0.95 0.70 - 1.20 mg/dL [facility] Comment: Please note that the pediatric reference intervals supplied above were not validated at [facility] [place]. Results from pediatric patients [...] [facility] Estimated GFR 60 >=60 [facility] Comment: This estimated [...] the following links into your internet browser. [email or web address] Blood specimen (specimen) 05/19/2016 11:32 AM EDT 05/19/2016 11:41 AM EDT Narrative Resulting Agency Comment Spec In Lab Alirio Esparza MD CHEMISTRY ORDERABLE S [facility] [place] [address] documented in this encounter Visit Diagnoses Diagnosis Nonrheumatic aortic valve stenosis Aortic valve disorders documented in this encounter Care Teams Clinical Trial Specialist Relationship Specialty Start Date End Date Deborah Quiroga APRN PCP - General Family Medicine 03/24/16 02/04/23 documented as of this encounter
--- OUTSIDE RECORDS SUMMARY | 2024-02-22 14:16 | XMS_ITS | Encounter Summary ---
Author Organization [facility] Address [facility] [place] [address] Care Team Providers Care Career Development Counselor Name Role Phone Ashley Quirogan Sylvia ANURAG Primary Care Provider [phone] Reason for Visit * Consultation (Urgent) - Closed Specialty Diagnoses / Procedures Referred By Crispin t Referred To Contact Cardiac Surgery Diagnoses aortic stenosis, consideration for valve replacement Antelmo Burrell MD [address] [place] [address] Alirio Esparza MD [facility] [place] [address] Referral ID Status Reason Start Date Expiration Date V isits Requested Visits Authorized [id number] Closed Connection Center 03/04/2016 03/04/2017 1 1 Encounter Details Date Type Department Care Team (Late st Contact Info) Description 03/24/2016 10:40 AM EDT Office [place] [address] Alirio Esparza MD [facility] [place] [address] Aortic valve stenosis, unspecified etiology Social History [...] This is a patient of Antelmo Burrell [facility] Cardiology. Mrs. Thacker is being sent [...] 30 minute visit, 20 minutes were spent [id number] with the patient discussing aortic stenosis and valve replacement. documented in this encounter Plan of Treatment Upcoming Encounters Date Type Department Care Team (Mi st Contact Info) Description 02/22/2024 4:15 PM EDT Office Visit Dermatology at [place] [address] [place] [address] Marek Bonilla MD [address] [place] [address] 06/05/2024 11:30 AM EST Office [place] [address] Magdalena Peralta MD [facility] [place] [address] documented as of this encounter Visit Diagnoses Diagnosis Aortic valve stenosis, unspecified etiology documented in this encounter Care Teams Career Development Counselor Relationship Specialty Start Date End Date Deborah Quiroga APRN PCP - General Family Medicine 03/24/16 02/04/23 documented as of this encounter
--- OUTSIDE RECORDS SUMMARY | 2024-02-22 14:16 | XMS_ITS | Encounter Summary ---
Author Organization [facility] [place] [address] Care Team Providers Care Chief Petroleum Engineer Name Role Phone Deborah Quiroga APRN Primary Care Provider [phone] Encounter Details Date Type Department Care Team (Late st Contact Info) Description 06/16/2016 Orders Only Hematology [place] [phone] Nitesh Pina Jr., MD [facility] HEMATOLOGY/[place] [address] Cyclical neutropenia Social History Tobacco Use Types [...] 4:15 PM EDT Office Visit Dermatology at [address] [place] [address] Marek Bonilla MD [address] [facility] [place] [address] 06/05/2024 11:30 AM EST Office [place] [address] Magdalena Peralta MD [facility] [place] [address] documented as of this encounter Visit Diagnoses Diagnosis Cyclical neutropenia Cyclic neutropenia documented in this encounter Care Teams Chief Petroleum Engineer Relationship Specialty Start Date End Date Deborah Quiroga APRN PCP - General Family Medicine 03/24/16 02/04/23 documented as of this encounter
--- OUTSIDE RECORDS SUMMARY | 2024-02-22 14:16 | XMS_ITS | Encounter Summary ---
Author Organization [facility] [place] [address] Care Team Providers Care Sales Force Developer Name Role Phone Junaid Deborah Shields APRN Primary Care Provider [phone] Encounter Details Date Type Department Care Team (Latest Contact Info) Description 05/19/2016 11:00 AM EDT Clinical Support [place] [address] Nonrheumatic aortic valve stenosis Social History Tobacco [...] 4:15 PM EDT Office Visit Dermatology at [place] [address] [facility] [place] [address] Marek Bonilla MD [address] [facility] [address] 06/05/2024 11:30 AM EST Office Visit [place] [address] Magdalena Peralta MD [facility] [place] [address] documented as of this encounter Procedures Procedure [...] (Bezet) 448 ms MUSE SYSTEM Calculated P [place] 37 degrees MUSE SYSTEM Calculated R [place] 31 degrees MUSE SYSTEM Calculated T [place] 25 degrees MUSE SYSTEM INTERPRETATION Normal sinus rhythm Normal ECG No previous ECGs available Confirmed by MD Becca, Deangelo ([id number]) on 05/19/2016 5:23:33 PM MUSE SYSTEM 05/19/2016 11:4 3 AM EDT 05/19/2016 5:23 PM EDT Alirio Esparza MD ECG ORDERABLES MUSE SYSTEM documented in this encounter Visit Diagnoses Diagnosis Nonrheumatic aortic valve stenosis Aortic valve disorders documented in this encounter Care Teams Sales Force Developer Relationship Specialty Start Date End Date Deborah Quiroga, MEDICAL VIDEOGRAPHER PCP - General Family Medicine 03/24/16 02/04/23 documented as of this encounter
--- OUTSIDE RECORDS SUMMARY | 2024-02-22 14:16 | XMS_ITS | Encounter Summary ---
Author Organization [facility] Address [facility] [place] [address] Care Team Providers Care Hemmer Chainstitch Name Role Phone Ashley Quirogan Cornelius ANURAG Primary Care Provider [phone] Encounter Details Date Type Department Care Team (Latest Contact Info) Description 06/19/2016 - 06/19/2016 11:59 PM EST Hospital Encounter [place] [phone] Nitesh Pina Jr., MD [facility] HEMATOLOGY/[place] [address] Pain Discharge Disposition: Home Social History Tobacco [...] PM EDT Office Visit Dermatology at [place] [address] [facility] [place] [address] Marek Bonilla MD [address] [facility] [place] [address] 06/05/2024 11:30 AM EST [place] [address] Magdalena Peralta MD [facility] [place] [address] documented as of this encounter Procedures Procedure Name Priority Date/Time Associated Diagnosis Comments FILM LIBRARY STORAGE ONLY CT CHEST ABDOMEN PELVIS Routine 06/19/2016 12:00 AM EST Pain documented in this encounter Results * Film Library- Storage Only CT Chest Abdomen Pelvis (06/19/2016 12:00 AM EST) Narrative [facility] - 06/20/2016 8:53 AM EST This exam is for storage only and is auto-finalizing. Nitesh Pina Jr., MD IMG FILM LIBRARY ORD ERABLES [place], [place] documented in this encounter Visit Diagnoses Diagnosis Pain Generalized pain documented in this encounter Care Teams Hemmer Chainstitch Relationship Specialty Start Date End Date Deborah Quiroga APRN PCP - General Family Medicine 03/24/16 02/04/23 documented as of this encounter
--- OUTSIDE RECORDS SUMMARY | 2024-02-22 14:16 | XMS_ITS | Encounter Summary ---
Author Organization [facility] [place] [address] Care Team Providers Care Assembler Corncob Pipes Name Role Phone Deborah Quiroga APRN Primary Care Provider Encounter Details Date Type Department Care Team (Latest Contact Info) Description 07/10/2016 2:54 PM EST - 07/10/2016 11:59 PM EST Hospital [place] [phone] Discharge Disposition: Home Social History Tobacco Use [...] PM EDT Office Visit Dermatology at [place] [address] [place] [address] Marek Bonilla MD [address] [facility] [place] [address] 06/05/2024 11:30 AM EST Office Visit [place] [address] Magdalena Peralta MD [facility] [place] [address] documented as of this encounter Procedures Procedure Name Priority Date/Time Associated Diagnosis Comments BONE MARROW FINAL REPORT Routine 07/10/2016 3:43 PM EST documented in this encounter Results * Bone Marrow Final Report (07/10/2016 3:43 PM EST) FINAL DIAGNOSIS (AP) [id number] ?Location: OPW The signing pathologist has (i) examined the relevant preparation(s) for the specimen(s) and (ii) rendered or confirmed the diagnosis(es). . ? Bone Marrow Final DIAGNOSIS BONE MARROW (PERIPHERAL SMEAR, ASPIRATE SMEAR, TOUCH PREP, CLOT SECTION, CORE BIOPSY); [OSR# [id number], COLLECTED 06/23/2016, 19 SLIDES]: ?? 1. 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 Polytypic plasma cell staining, high background Lambda ?Polytypic plasma cell staining, high background Block: ? B2 (Core biopsy 2) Fixative: ?? Formalin ANTIBODY: ?? RESULT/COMMENT CD3 ? Scattered small lymphocytes and lymphoid aggregates highlighted CD20 ?Few scattered small lymphocytes stain ( ?? <CD3 in aggregates) CD138 ? Scattered plasma cells represent 3-4% of the cellularity [place] ? Polytypic plasma cell staining, high background Lambda ?Polytypic plasma cell staining, high background Note: The immunoperoxidase stains reported above were developed and their performance characteristics determined by [facility]. ??They have not been cleared [...] CONSULTATION CASE A - 19 slides labeled [id number], collection date 06/23/2016. [id number] Report to: [facility] Surgical Pathology Department [facility], [facility], 2nd Floor [address] [place], [place] ??[address] 07/13/2016 11:38 AM EST [facility] 07/10/2016 3:43 PM EST Nitesh Pina Jr., MD PATHOLOGY/CYTOLOGY O RDERABLES [facility] [address] [facility] [address] [place] [address] documented in this encounter Visit Diagnoses Not on filedocumented in this encounter Care Teams Assembler Corncob Pipes Relationship Specialty Start Date End Date Deborah Quiroga APRN PCP - General Family Medicine 03/24/16 02/04/23 documented as of this encounter
--- OUTSIDE RECORDS SUMMARY | 2024-02-22 14:16 | XMS_ITS | Encounter Summary ---
Author Organization [facility] Address [facility] Erika becerra [place] [id number] Care Team Providers Care Transitional Studies Instructor Name Role Phone Ashley Quirogazac Shields APRN Primary Care Provider [phone] Reason for Visit * Reason Comments Schedule Office Case * Consultation (Routine) - Closed Specialty Diagnoses / Procedures Referred By Contac t Referred To Contact Hematology and Oncology Diagnoses Leukopenia Neutropenia LEUKOPENIA W/NEUTROPENIA Procedures TC PEGFILGRASTIM, 6MG, INJECTION LEUKOPENIA W/NEUTROPENIA Alirio Esparza MD [facility] [place] [address] Mario Alberto Ramos Jr., MD [facility] HEMATOLOGY/[place] [address] Referral ID Status Reason Start Date Expiration Date V isits Requested Visits Authorized [id number] Closed Consult, Test & Treat 07/17/2016 07/17/2017 1 1 Encounter Details Date Type Department Care Team (Late st Contact Info) Description 06/09/2016 3:00 PM EST Office Visit Hematology [place] [address] Mario Alberto Ramos Jr., MD [facility] HEMATOLOGY/[place] [address] Cyclical neutropenia Social History Tobacco Use Types [...] 06/09/2016 3:00 PM EST Hematology Outpatient Clinic [facility] Hematology Outpatient Consult Note CC: [id number] [...] Unknown See Comment Flow Cytometry Report Unknown [id number] ... HematoPathology: Flow Cytometry DIAGNOSIS 1. No [...] PM EDT Office Visit Dermatology at [address] [place] [address] Marek Bonilla MD [address] [place] [address] 06/05/2024 11:30 AM EST Office Visit [facility] at [facility] [place] [address] Magdalena Peralta MD [facility] [place] [address] documented as of this encounter Procedures Procedure [...] (06/09/2016 4:53 PM EST) Flow Cytometry Report [id number] ?Location: 3K The signing pathologist has (i) [...] by the Clinical Flow Cytometry Laboratory at [facility]. It has not been cleared or [...] high complexity clinical laboratory testing. SPECIMEN PROCESSING [id number] Cells for immunophenotypic analysis were derived from [...] MD PATHOLOGY/CYTOLOGY O RDERABLES Performing Organization Address City/[facility]/ZIP Co de Phone Number [facility] [place] [address] * Scan, Peripheral Blood (06/09/2016 4:53 PM EST) [facility] Plat Estimate Normal [facility] RBC Morphology Normal [facility] Blood specimen (specimen) 06/09/2016 4:53 PM EST 06/09/2016 5:00 PM EST Narrative Resulting Agency Comment Spec In Lab Mario Alberto Ramos Jr., MD HEMATOLOGY ORDERABLE S Performing Organization Address [facility] Co de Phone Number [facility] [place] [address] * (ABNORMAL) Differential, Automated (06/09/2016 4:53 PM EST) [facility] Neutrophils % 27.7 % [facility] Neutr Abs (ANC) 0.48(Crit ical) 1.70 - 6.10 x10(3)/mc L [facility] Comment: Matches Previous Results.. This result has been called to NOT CALLED by Jesusita Argueta on 06 09 2016 at 1817, and has not been read back. MATCHES PREVIOUS RESULTS Lymphocytes % 57.2 % [facility] Lymphocytes Abs 1.0 0.9 - 3.2 x10(3)/mc L [facility] Monocytes % 13.3 % [facility] Monocyte Abs 0.2(L) 0.3 - 0.9 x10(3)/[facility] Eosinophils % 0.6 % [facility] Eosinophils Abs 0.0 0.0 - 0.4 x10(3)/[facility] Basophils % 1.2 % [facility] Basophils Abs 0.0 0.0 - 0.1 x10(3)/[facility] Immature Gran % 0.00 % [facility] Comment: Immature granulocytes(IG's)percentage and absolute count will include metamyelocytes, myelocytes, and promyelocytes. Blood smears from CBCs yielding IG's will be scanned manually for concordance. If this scan disagrees with the automated IG or if promyelocytes are noted, a manual differential will be performed. Amanda Gran Abs 0.00 0.00 - 0.04 x10(3)/[facility] Blood specimen (specimen) 06/09/2016 4:53 PM EST 06/09/2016 5:00 PM EST Narrative Resulting Agency Comment Spec In Lab Mario Alberto Ramos Jr., MD HEMATOLOGY ORDERABLE S Performing Organization Address City/State/[facility] Co de Phone Number [facility] [place] [address] * (ABNORMAL) Hemogram (06/09/2016 4:53 PM EST) WBC 1.7(Critic al) 4.0 - 9.5 x10(3)/[facility] RBC 3.92(L) 4.00 - 5.21 x10(6)/[facility] Hemoglobin 12.4 11.7 - 15.5 gm/dL [facility] Hematocrit 36.7 35.7 - 45.8 % [facility] MCV 93.6 82.6 - 94.4 fL [facility] MCH 31.6 27.1 - 32.0 pg [facility] MCHC 33.8 31.7 - 35.0 gm/dL [facility] Platelets 234 145 - 357 x10(3)/[facility] RDWSD 39.8 37.0 - 46.0 [facility] RDWCV 11.8 11.5 - 14.1 % [facility] MPV 8.6 7.6 - 12.9 [facility] nRBC % Auto 0.0 % [facility] nRBC Abs Auto 0.000 0.000 - 0.000 x10(3)/[facility] Blood specimen (specimen) 06/09/2016 4:53 PM EST 06/09/2016 5:00 PM EST Narrative Resulting Agency Comment Spec In Lab Mario Alberto Ramos Jr., MD HEMATOLOGY ORDERABLE S Performing Organization Address City/[facility]/ZIP Co de Phone Number [place] [phone] * Immunophenotyping Flow Cytometry (06/09/2016 4:53 PM EST) Immunophenotyping Flow See Comment [facility] Comment: When completed by the Pathologist, the Flow Cytometry Report ([id number]) will display under the Pathology Results section within [facility]. Specimen of unknown material (specimen) 06/09/2016 4:53 PM EST 06/09/2016 5:00 PM EST Narrative Resulting Agency Comment Spec In Lab Mario Alberto Ramos Jr., MD HEMATOLOGY ORDERABLE S [facility] [place] [address] documented in this encounter Visit Diagnoses Diagnosis Cyclical neutropenia Cyclic neutropenia documented in this encounter Care Teams Transitional Studies Instructor Relationship Specialty Start Date End Date Deborah Quiroga APRN PCP - General Family Medicine 03/24/16 02/04/23 documented as of this encounter
--- OUTSIDE RECORDS SUMMARY | 2024-02-22 14:16 | XMS_ITS | Encounter Summary ---
Author Organization [facility] [place] [address] Care Team Providers Care Channel Man Name Role Phone Deborah Quiroga APRN Primary Care Provider +1 [phone] Encounter Details Date Type Department Care Team (Late st Contact Info) Description 05/22/2016 Orders Only Cardiology at [address] [phone] Chele Randolph, EKATERINA [facility] [place] [address] Aortic valve stenosis, unspecified etiology Social History [...] PM EDT Office Visit Dermatology at [address] [place] [phone] Marek Bonilla MD [address] [facility] [place] [address] 06/05/2024 11:30 AM EST Office [place] [phone] [facility] [place] [address] documented as of this encounter Procedures Procedure Name Priority Date/Time Associated Diagnosis Comments CARDIAC CATHETERIZATION Routine 06/03/20 16 9:13 AM EDT Aortic valve stenosis, unspecified etiology documented in this encounter Results * CARDIAC CATHETERIZATION (06/03/2016 9:13 AM EDT) Anatomical Region Laterality Modality Other Narrative 06/03/2016 10:13 AM EDT ?[facility] ? Cardiac Catheterization/Intervention Report ? Patient Name: Purnima Thacker M. ? Procedure Date: 06/03/2016 ? A #: [id number] ? Primary Physician: Fanny, Nitesh E ? Case #: [id number] ? File Name: [id number] ? Catheterization Order Number: [id number] ? [facility] ? Final Report [place], [place] ? Patient Name: ? Purnima M. Kirstie ? ID#: ?[id number] ? : ?1955 ? Procedure Date: ? June 03, 2016 ? Case #: ? [id number] ? Room: ? 1 ? Case Physician: [...] no symptom, no angina (w/i 14 days). Tristanian ?Cardiovascular Society angina class was 0. This [...] Procedure Note Nitesh Escobedo MD - 09/21/[address] [facility] Cardiac Catheterization/Intervention Report Patient Name: Purnima Thacker Procedure Date: 06/03/2016 A #: [id number] Primary Physician: Nitesh Escobedo Case #: [id number] File Name: [id number] Catheterization Order Number: [id number] [facility] FinalReport [place], [place] Patient Name: Purnima Thacker ID#:[id number] :1955 Procedure Date: June 03, 2016 Case [...] with: no symptom, no angina (w/i 14 days).[place] [employer] angina class was 0. This [...] etiology documented in this encounter Care Teams Channel Man Relationship Specialty Start Date End Date Deborah Quiroga, BINGO CHECKER PCP - General Family Medicine 03/24/16 02/04/23 documented as of this encounter
--- OUTSIDE RECORDS SUMMARY | 2024-02-22 14:16 | XMS_ITS | Encounter Summary ---
[facility] [place] [address] Care Team Providers Care Household Refrigerator Mechanic Name Role Phone EitanDanni ANURAG Primary Care Provider Encounter Details Date Type Department Care Team (Latest Contact Info) Description 01/23/2014 7:45 AM EDT - 01/23/2014 5:50 PM EDT Hospital Encounter [place] [address] Alan Jacobson MD [facility] [place] [address] Cardiomyopathy; SOB (shortness of breath) Discharge Disposition: [...] by your doctor, do not take any ktoe-qjb-sjwcmqa medicines or herbal preparations without first discussing this with your doctor or pharmacist. There is the possibility of side effect and interactions when these are combined. Follow up Care Who to Call with Questions or Problems If there are any questions or problems that you think might be related to your cardiac cath or angioplasty, contact the coating operator first responder by calling [facility] at . documented in this encounter Medications [...] Visit Dermatology at [place] [address] [place] [address] Marek Bonilla MD [address] [facility] [place] [address] 06/05/2024 11:30 AM EST Office [place] [address] Magdalena Peralta MD [facility] [place] [address] documented as of this encounter Procedures Procedure [...] ANDREW ONESIMO M ?(Age): 1955(58) Med Rec#: ?[id number] ? Sex: ?F ? Site Loc: ?[facility] ? Ht / Wt: ??158(cm)/93(kg) Pt. Loc: ? Adult Floor ?BSA: ?2.02 Study Date: ?01/23/2014 ? Pt. Type: Inpatient Tape: ? Referring: Lee Kincaid ([id number]) Referring: ANNALISA Machine Installer: Miguel Beverly Diagnosis:CPT Code(s): ??Echo Full (10124), ??Spectral Doppler (74271), Color Doppler (00973), Indication(s): ??Aortic stenosis Rhythm: Sinus HR ?BP [...] ? Mid-Inferior ?Hypokinetic ? Mid-Inferoseptal ?Hypokinetic ? Volga-Septal ? Hypokinetic ? Volga-Anterior ? Hypokinetic ? Volga-Lateral ?Hypokinetic ? Volga-Inferior ? Hypokinetic ? Volga-Tip ?Hypokinetic ? Chambers ?Value ?Units (Range) ? [...] 01/23/2014 16:34:37 Images reviewed and interpretation verified [facility] Cardiac Ultrasound Laboratory Procedure Note Lee Kincaid MD - 01/23/2014 Procedure: Transthoracic Echocardiogram Patient: ANDREW Mejias DOB(Age): 1955(58) Med Rec#: [id number] Sex: F Site Loc: [facility] Ht / Wt: 158(cm)/93(kg) Pt. Loc: Adult Floor BSA: 2.02 Study Date: 01/23/2014 Pt. Type: Inpatient Tape: Referring: Lee Kincaid ([id number]) Referring: AUSTINELIZABETHGerman Machine Installer: Miguel Beverly Diagnosis:CPT Code(s): Echo Full (29131), Spectral Doppler (51969), Color Doppler (13335), Indication(s): Aortic stenosis Rhythm: Sinus HR BP [...] Hypokinetic Mid-Posterolateral Hypokinetic Mid-Inferior Hypokinetic Mid-Inferoseptal Hypokinetic Volga-Septal Hypokinetic Volga-Anterior Hypokinetic Volga-Lateral Hypokinetic Volga-Inferior Hypokinetic Volga-Tip Hypokinetic Chambers Value Units (Range) IVSd 2D [...] 01/23/2014 16:34:37 Images reviewed and interpretation verified [facility] Cardiac Ultrasound Laboratory Lee Kincaid MD ECHO [...] RN) documented in this encounter Care Teams Household Refrigerator Mechanic Relationship Specialty Start Date End Date Danni Laird APRN [address] [place] [address] PCP - General 01/23/14 11/11/14 documented as of this encounter
--- OUTSIDE RECORDS SUMMARY | 2024-02-22 14:16 | XMS_ITS | Encounter Summary ---
Author Organization [facility] Address [facility] [place] [address] Care Team Providers Care Critical Care Transport Nurse Name Role Phone Ashley Quirogazac Shields APRN Primary Care Provider [phone] Encounter Details Date Type Department Care Team (Late st Contact Info) Description 05/19/2016 10:00 AM EDT Office [place] [address] Alirio Esparza MD [facility] DR CARDIOTHORAC[place] [address] Nonrheumatic aortic valve stenosis Social History Tobacco [...] PM EDT Office Visit Dermatology at [address] [address] Marek Bonilla MD [address] [facility] [place] [address] 06/05/2024 11:30 AM EST [place] [address] Magdalena Peralta MD [facility] [place] [address] documented as of this encounter Results * [...] (Bezet) 448 ms MUSE SYSTEM Calculated P [place] 37 degrees MUSE SYSTEM Calculated R [place] 31 degrees MUSE SYSTEM Calculated T [place] 25 degrees MUSE SYSTEM INTERPRETATION Normal sinus rhythm Normal ECG No previous ECGs available Confirmed by MD Becca, Deangelo ([id number]) on 05/19/2016 5:23:33 PM MUSE SYSTEM 05/19/2016 11:4 3 AM EDT 05/19/2016 5:23 PM EDT Alirio Esparza MD ECG ORDERABLES MUSE SYSTEM * Basic Metabolic Panel (non-fasting) (05/19/2016 11:32 AM EDT) Glucose Lvl 86 65 - 199 mg/dL [facility] Comment:Diabetes: >=200 mg/d L plus symptoms BUN 13 8 - 18 mg/dL [facility] Creatinine 0.95 0.70 - 1.20 mg/dL [facility] Comment: Please note that the pediatric reference intervals supplied above were not validated at [facility]. Results from pediatric patients should be interpreted in conjunction to the patient's age, height and muscle mass. Sodium 140 135 - 145 mmol/L [facility] Potassium 4.3 3.5 - 5.0 mmol/L [facility] Comment: Please note: ??Patients with WBC >100,000 may have falsely elevated Potassium levels. ??For accurate Potassium quantification in these patients send serum separator tube (gold top) for subsequent determinations. ??Contact the Clinical Chemistry Laboratory if there are any questions. Chloride 101 98 - 107 mmol/L [facility] CO2 27 22 - 31 mmol/L [facility] Anion Gap 12 5 - 15 mmol/L [facility] Calcium 10.1 8.5 - 10.5 mg/dL [facility] Estimated GFR 60 >=60 [facility] Comment: This estimated GFR [...] the following links into your internet browser. [email or web address] Blood specimen (specimen) 05/19/2016 11:32 AM EDT 05/19/2016 11:41 AM EDT Narrative Resulting Agency Comment Spec In Lab Alirio Esparza MD CHEMISTRY ORDERABLE S [facility] [place] [address] documented in this encounter Visit Diagnoses Diagnosis Nonrheumatic aortic valve stenosis Aortic valve disorders Nonrheumatic aortic valve stenosis Aortic valve disorders documented in this encounter Care Teams Critical Care Transport Nurse Relationship Specialty Start Date End Date Deborah Quiroga APRN PCP - General Family Medicine 03/24/16 02/04/23 documented as of this encounter
--- OUTSIDE RECORDS SUMMARY | 2024-02-22 14:16 | XMS_ITS | Encounter Summary ---
Author Organization [facility] [place] [address] Care Team Providers Care Human Resources Consultant Name Role Phone EitanMagnusDanni ANURAG Primary Care Provider Encounter Details Date Type Department Care Team (Late st Contact Info) Description 01/23/2014 9:25 AM EDT - 01/23/2014 10:25 AM EDT [place] [address] Alan Jacobson MD [facility] [address] CARDIAC CATHETERIZATION Social History Tobacco Use Types [...] by your doctor, do not take any yshh-bqv-rolxrdd medicines or herbal preparations without first discussing this with your doctor or pharmacist. There is the possibility of side effect and interactions when these are combined. Follow up Care Who to Call with Questions or Problems If there are any questions or problems that you think might be related to your cardiac cath or angioplasty, contact the web site specialist television equipment operator by calling [facility] at . documented in this encounter [...] PM EDT Office Visit Dermatology at [place] [address] [place] [address] Marek Bonilla MD [address] [facility] [address] [address] 06/05/2024 11:30 AM EST Office [place] [address] Magdalena Peralta MD [facility] [place] [address] documented as of this encounter Procedures Procedure Name Priority Date/Time Associated Diagnosis Comments ECHOCARDIOGRAM TRANSTHORACIC Routine 01/23/2014 3:17 PM EDT SOB (shortness of breath) documented in this encounter Results * Echocardiogram Transthoracic(Leb) (01/23/2014 3:17 PM EDT) Pathologist Noomeo EF 50 HEARTLAB SYSTEM Anatomical Region Laterality Modality Other 01/23/2014 Narrative 01/23/2014 4:35 PM EDT Procedure: ? Transthoracic Echocardiogram Patient: ? ANDREW ECHOLS M ?(Age): 1955(58) Med Rec#: ?[id number] ? Sex: ?F ? Site Loc: ?[facility] ? Ht / Wt: ??158(cm)/93(kg) Pt. Loc: ? Adult Floor ?BSA: ?2.02 Study Date: ?01/23/2014 ? Pt. Type: Inpatient Tape: ? Referring: Lee Kincaid ([id number]) Referring: ANNALISA Dethistler Operator: Miguel Beverly Diagnosis:CPT Code(s): ??Echo Full (32091), ??Spectral Doppler (28222), Color Doppler (99201), Indication(s): ??Aortic stenosis Rhythm: Sinus HR ?BP [...] ? Mid-Inferior ?Hypokinetic ? Mid-Inferoseptal ?Hypokinetic ? Morris-Septal ? Hypokinetic ? Morris-Anterior ? Hypokinetic ? Morris-Lateral ?Hypokinetic ? Morris-Inferior ? Hypokinetic ? Morris-Tip ?Hypokinetic ? Chambers ?Value ?Units (Range) ? [...] 01/23/2014 16:34:37 Images reviewed and interpretation verified [facility] Cardiac Ultrasound Laboratory Procedure Note Lee Kincaid MD - 01/23/2014 Procedure: Transthoracic Echocardiogram Patient: ANDREW Mejias (Age): 1955(58) Med Rec#: [id number] Sex: F Site Loc: [facility] Ht / Wt: 158(cm)/93(kg) Pt. Loc: Adult Floor BSA: 2.02 Study Date: 01/23/2014 Pt. Type: Inpatient Tape: Referring: Lee Kincaid ([id number]) Referring: ANNALISA Dethistler Operator: Miguel Beverly Diagnosis:CPT Code(s): Echo Full (47702), Spectral Doppler (25577), Color Doppler (05142), Indication(s): Aortic stenosis Rhythm: Sinus HR BP [...] Hypokinetic Mid-Posterolateral Hypokinetic Mid-Inferior Hypokinetic Mid-Inferoseptal Hypokinetic Morris-Septal Hypokinetic Morris-Anterior Hypokinetic Morris-Lateral Hypokinetic Morris-Inferior Hypokinetic Morris-Tip Hypokinetic Chambers Value Units (Range) IVSd 2D [...] 01/23/2014 16:34:37 Images reviewed and interpretation verified [facility] Cardiac Ultrasound Laboratory Lee Kincaid MD [...] RN) documented in this encounter Care Teams Human Resources Consultant Relationship Specialty Start Date End Date Danni Laird APRN [address] [place] [address] PCP - General 01/23/14 11/11/14 documented as of this encounter
--- OUTSIDE RECORDS SUMMARY | 2024-02-22 14:16 | XMS_ITS | Encounter Summary ---
[place] [address] Care Team Providers Care Timber Sprinkler Name Role Phone Mitchell Wilkes MD Primary Care Provider [phone] Reason for Visit * Reason Onset Date Comments Other 01/18/2014 Encounter Details Date Type Department Care Team (Late st Contact Info) Description 01/18/2014 Telephone Cardiology at [address] [address] Jesusita Garces Other Social History [...] PM EDT Office Visit Dermatology at [address] [address] Marek Bonilla MD [address] [facility] [place] [address] 06/05/2024 11:30 AM EST Office [place] [address] Magdalena Peralta MD [facility] [place] [address] documented as of this encounter Visit Diagnoses Not on filedocumented in this encounter Care Teams Timber Sprinkler Relationship Specialty Start Date End Date Mitchell Wilkes MD [facility] PCP - General 06/24/10 01/19/14 documented as of this encounter
--- OUTSIDE RECORDS SUMMARY | 2024-02-22 14:16 | XMS_ITS | Encounter Summary ---
Author Organization [facility] [place] [address] Care Team Providers Care Alum Plant Supervisor Name Role Phone Deborah Quiroga APRN Primary Care Provider [phone] Encounter Details Date Type Department Care Team (Late st Contact Info) Description 06/09/2016 Orders Only H[place] [phone] Nitesh Pina Jr., MD [facility] HEMATOLOGY/[place] [address] Cyclical neutropenia Social History Tobacco Use Types [...] PM EDT Office Visit Dermatology at [address] [place] [phone] Marek Bonilla MD [address] [facility] [place] [address] 06/05/2024 11:30 AM EST Office [place] [phone] Magdalena Peralta MD [facility] [place] [address] documented as of this encounter Results * Immunophenotyping Flow Cytometry (06/09/2016 4:53 PM EST) Immunophenotyping Flow See Comment [facility] Comment: When completed by the Pathologist, the Flow Cytometry Report ([id number]) will display under the Pathology Results section within eD. Specimen of unknown material (specimen) 06/09/2016 4:53 PM EST 06/09/2016 5:00 PM EST Narrative Resulting Agency Comment Spec In Lab Nitesh Pina Jr., MD HEMATOLOGY ORDERABLE S [facility] [place] [address] documented in this encounter Visit Diagnoses Diagnosis Cyclical neutropenia Cyclic neutropenia documented in this encounter Care Teams Alum Plant Supervisor Relationship Specialty Start Date End Date Deborah Quiroga APRN PCP - General Family Medicine 03/24/16 02/04/23 documented as of this encounter
--- OUTSIDE RECORDS SUMMARY | 2024-02-22 14:16 | XMS_ITS | Encounter Summary ---
[place] [address] Care Team Providers Care Audio Visual Collections Coordinator Name Role Phone Ashley Quirogan Cornelius ANURAG Primary Care Provider [phone] Encounter Details Date Type Department Care Team (Late st Contact Info) Description 03/24/2016 Notes [place] [phone] Alfa Lua Social History Tobacco Use Types [...] assessments completed: Wadsworth Score: 6/6 IADL: 7/7 Patient Scheduler Strength Trials: 18.4, 15.0, 16.8 (right hand dominant) 5 meter walk test in seconds x3: 4.98, 4.88, 4.45 KCCQol: 98% Alfa Lua documented in this encounter Plan of Treatment Upcoming Encounters Date Type Department Care Team (Late st Contact Info) Description 02/22/2024 4:15 PM EDT Office Visit Dermatology at [place] [address] [facility] [address] [place] [address] Marek Bonilla MD [address] [facility] [place] [address] 06/05/2024 11:30 AM EST Office [place] [address] Magdalena Peralta MD [facility] [place] [address] documented as of this encounter Visit Diagnoses Not on filedocumented in this encounter Care Teams Audio Visual Collections Coordinator Relationship Specialty Start Date End Date Deborah Quiroga APRN PCP - General Family Medicine 03/24/16 02/04/23 documented as of this encounter
--- OUTSIDE RECORDS SUMMARY | 2024-02-22 14:16 | XMS_ITS | Encounter Summary ---
Author Organization [facility] Address [facility] [place] [address] Care Team Providers Care Euclid Operator Name Role Phone Deborah Quiroga APRN Primary Care Provider [phone] Encounter Details Date Type Department Care Team (Latest Contact Info) Description 05/19/2016 11:52 AM EDT - 05/19/2016 11:59 PM EDT Hospital Encounter XRay at [address] [place] [address] Alirio Esparza MD [facility] [place] [address] Nonrheumatic aortic valve stenosis Discharge Disposition: Home [...] 4:15 PM EDT Office Visit Dermatology at [place] [address] [facility] [address] [place] [address] Marek Bonilla MD [address] [facility] [place] [address] 06/05/2024 11:30 AM EST [place] [address] Magdalena Peralta MD [facility] [place] [address] documented as of this encounter Procedures Procedure [...] disorders documented in this encounter Care Teams Euclid Operator Relationship Specialty Start Date End Date Deborah Quiroga, CHANNEL REBUILDER PCP - General Family Medicine 03/24/16 02/04/23 documented as of this encounter
--- OUTSIDE RECORDS SUMMARY | 2024-02-22 14:16 | XMS_ITS | Encounter Summary ---
Author Organization [facility] Address [facility] [place] [address] Care Team Providers Care Japanese Tutor Name Role Phone Danni Laird APRN Primary Care Provider [phone] Encounter Details Date Type Department Care Team (Late st Contact Info) Description 01/23/2014 Orders Only Cardiology at [address] [phone] Lee Kincaid MD [facility] [place] [address] SOB (shortness of breath) (Primary Dx) Social [...] PM EDT Office Visit Dermatology at [address] [place] [address] Marek Bonilla MD [address] [facility] DERMATOLOGY [place], [place] [address] 06/05/2024 11:30 AM EST Office [place] [phone] Magdalena Peralta MD [facility] [place] [address] documented as of this encounter Results * Echocardiogram Transthoracic(Leb) (01/23/2014 3:17 PM EDT) EF 50 HEARTLAB SYSTEM Anatomical Region Laterality Modality Other 01/23/2014 Narrative 01/23/2014 4:35 PM EDT Procedure: ? Transthoracic Echocardiogram Patient: ? ANDREW ECHOLS M ?(Age): 1955(58) Med Rec#: ?[id number] ? Sex: ?F ? Site Loc: ?[facility] ? Ht / Wt: ??158(cm)/93(kg) Pt. Loc: ? Adult Floor ?BSA: ?2.02 Study Date: ?01/23/2014 ? Pt. Type: Inpatient Tape: ? Referring: Lee Kincaid ([id number]) Referring: ANNALISA Shag Truck Driver: Miguel Beverly Diagnosis:CPT Code(s): ??Echo Full (94713), ??Spectral Doppler (05197), Color Doppler (16375), Indication(s): ??Aortic stenosis Rhythm: Sinus HR ?BP [...] ? Mid-Inferior ?Hypokinetic ? Mid-Inferoseptal ?Hypokinetic ? Wheeler-Septal ? Hypokinetic ? Wheeler-Anterior ? Hypokinetic ? Wheeler-Lateral ?Hypokinetic ? Wheeler-Inferior ? Hypokinetic ? Wheeler-Tip ?Hypokinetic ? Chambers ?Value ?Units (Range) ? [...] 01/23/2014 16:34:37 Images reviewed and interpretation verified [facility] Cardiac Ultrasound Laboratory Procedure Note Lee Kincaid MD - 01/23/2014 Procedure: Transthoracic Echocardiogram Patient: ANDREW Mejias (Age): 1955(58) Med Rec#: [id number] Sex: F Site Loc: [facility] Ht / Wt: 158(cm)/93(kg) Pt. Loc: Adult Floor BSA: 2.02 Study Date: 01/23/2014 Pt. Type: Inpatient Tape: Referring: Lee Kincaid ([id number]) Referring: ANNALISA Shag Truck Driver: Miguel Beverly Diagnosis:CPT Code(s): Echo Full (62875), Spectral Doppler (16411), Color Doppler (52889), Indication(s): Aortic stenosis Rhythm: Sinus HR BP [...] Hypokinetic Mid-Posterolateral Hypokinetic Mid-Inferior Hypokinetic Mid-Inferoseptal Hypokinetic Wheeler-Septal Hypokinetic Wheeler-Anterior Hypokinetic Wheeler-Lateral Hypokinetic Wheeler-Inferior Hypokinetic Wheeler-Tip Hypokinetic Chambers Value Units (Range) IVSd 2D [...] 01/23/2014 16:34:37 Images reviewed and interpretation verified [facility] Cardiac Ultrasound Laboratory Lee Kincaid MD ECHO ORDERABLES documented in this encounter Visit Diagnoses Diagnosis SOB (shortness of breath)- Primary Shortness of breath documented in this encounter Care Teams Japanese Tutor Relationship Specialty Start Date End Date Danni Laird APRN [address] [facility] [place] [address] PCP - General 01/23/14 11/11/14 documented as of this encounter
--- OUTSIDE RECORDS SUMMARY | 2024-02-22 14:16 | XMS_ITS | Encounter Summary ---
Author Organization [facility] [place] [address] Care Team Providers Care Aircraft Engine Cylinder Mechanic Name Role Phone Deborah Quiroga APRN Primary Care Provider [phone] Encounter Details Date Type Department Care Team (Late st Contact Info) Description 07/03/2016 External Results [place]ematology [place] [address] Matthew Cervantes, DO [address] [place] [address] Social History Tobacco Use Types Packs/Day Years [...] PM EDT Office Visit Dermatology at [address] [phone] Marek Bonilla MD [address] [facility] DERMATOLOGY [place], [place] [address] 06/05/2024 11:30 AM EST Office [place] [address] Magdalena Peralta MD [facility] [place] [address] documented as of this encounter Procedures Procedure Name Priority Date/Time Associated Diagnosis Comments BONE MARROW ASPIRATION PERFO RMED WITH BONE MARRROW BIOPSY Routine 06/28/2016 documented in this encounter Results * BONE MARROW ASPIRATION PREFORMED WITH BONE MARRROW BIOPSY (06/28/2016) Matthew Cervantes DO GENERAL SURGI DANIEL ORDERABLES documented in this encounter Visit Diagnoses Not on filedocumented in this encounter Care Teams Aircraft Engine Cylinder Mechanic Relationship Specialty Start Date End Date Deborah Quiroga APRN PCP - General Family Medicine 03/24/16 02/04/23 documented as of this encounter
--- OUTSIDE RECORDS SUMMARY | 2024-02-22 14:16 | XMS_ITS | Encounter Summary ---
Author Organization [facility] Address [facility] [place] [address] Care Team Providers Care Data Support Specialist Name Role Phone Ashley Quirogazac Shields APRN Primary Care Provider [phone] Reason for Visit * Auth/Cert Specialty Diagnoses / Procedures Referred By Crispin t Referred To Contact Diagnoses AVS Procedures CARDIAC CATHETERIZATION Referral ID Status Reason Start Date Expiration Date Visits Re quested Visits Authorized [id number] 1 1 Encounter Details Date Type Department Care Team (Late st Contact Info) Description 06/03/2016 7:30 AM EDT - 06/03/2016 8:30 AM EDT Surgery [place] [phone] Mario Alberto Escobedo MD [facility] [place] [address] CARDIAC CATHETERIZATION Social History Tobacco Use Types [...] by your doctor, do not take any xyiz-plk-vytvhsc medicinesor herbal preparations without first discussing this with your doctor or pharmacist. There is the possibility of side effects and interactions when these are combined. Follow Up Care Who to call with questions or problems If there are any questions or problems that you think might be related to your cardiac cath or angioplasty, contact the flag signalman vascular sonographer by calling [facility] at . * Patient Instructions* Felicia Corrigan - 06/03/2016 9:33 AM EDT Cardiology Instructions Call your doctor if: Chest pain, dyspnea, pain or swelling in legs occurs. If you have non-emergent questions between now and the time of your follow up appointments: -During 8am-5pm Wednesday through Wednesday call [phone] to speak with a nurse in the cardiology clinic -All other times call [phone] and ask to speak to the rn neurology vascular sonographer. MEDICATIONS - restart your spironolactone, discontinue prior [...] Appointments: Primary care provider: Cardiology: Deborah Hahn, COUPON MANIFEST CLERK [phone] Follow up as planned or as needed. Dr. Esparza [phone] Other follow-up appointment: Hematology - Dr. Mario [...] EDT Office Visit Dermatology at [place] [address] [place] [address] Marek Bonilla MD [address] [facility] [place] [address] 06/05/2024 11:30 AM EST Office [place] [address] Magdalena Peralta MD [facility] [place] [address] documented as of this encounter Procedures Procedure [...] Green Tube HOLD (06/03/2016 11:45 AM EDT) [facility] Green Hold Sample in lab. [facility] Blood specimen (specimen) Venous Draw / Unknown 06/03/2016 11:45 AM EDT 06/03/2016 12:12 PM EDT Mario Alberto Escobedo MD CHEMISTRY ORDERABLES Performing Organization Address [facility] Co de Phone Number [facility] [place] [address] * Methylmalonic acid, serum (06/03/2016 11:45 AM EDT) [facility] Methylmalonic Acid 0.21 <=0.40 nmol/mL [facility] Comment: Test Performed by: [place] [address] Shell Freezing Machine Operator: Raymond Chaudhry II, M.D., Ph.D. Blood specimen (specimen) 06/03/2016 11:45 AM EDT 06/03/2016 1:57 PM EDT Narrative Resulting Agency Comment Spec In Lab Mario Alberto Escobedo MD CHEMISTRY ORDERABLES Performing Organization Address City/[facility]/ZIP Co de Phone Number [facility] [place] [address] * Granulocyte Antibody (06/03/2016 11:45 AM EDT) [facility] Granulocyte Ab Negative Not Applicable [facility] Comment: ADDITIONAL INFORMATION Method: Immunofluorescent Assay Performing Laboratory CLIA# [id number] This test was developed and its performance characteristics determined by [facility] in a manner consistent with CLIA requirements. This test has not been cleared or approved by the U.S. Food and Drug Administration. Test Performed by: [facility] - [address] [address] Shell Freezing Machine Operator: Raymond Chaudhry II, M.D., Ph.D. Blood specimen (specimen) 06/03/2016 11:45 AM EDT 06/03/2016 1:57 PM EDT Narrative Resulting Agency Comment Spec In Lab Mario Alberto Escobedo MD IMMUNOLOGY ORDERABLE S Performing Organization Address [facility] de Phone Number [facility] [place] [address] * TSH (06/03/2016 11:45 AM EDT) TSH 2.18 0.27 - 4.20 mcIU/mL [facility] Blood specimen (specimen) 06/03/2016 11:45 AM EDT 06/03/2016 12:11 PM EDT Narrative Resulting Agency Comment Spec In Lab Mario Alberto Escobedo MD CHEMISTRY ORDERABLES Performing Organization Address [facility] de Phone Number [facility] [place] [id number] * Homocysteine Total, Plasma (06/03/2016 11:45 AM EDT) Homocyst Tot 9 <=15 mcmol/L [facility] Blood specimen (specimen) 06/03/2016 11:45 AM EDT 06/03/2016 12:11 PM EDT Narrative Resulting Agency Comment Spec In Lab Mario Alberto Escobedo MD CHEMISTRY ORDERABLES Performing Organization Address [facility] Co de Phone Number [facility] [place] [address] * Folate, serum (06/03/2016 11:45 AM EDT) Folate Lvl >20.0 4.8 - 24.2 ng/mL [facility] Blood specimen (specimen) 06/03/2016 11:45 AM EDT 06/03/2016 12:04 PM EDT Narrative Resulting Agency Comment Spec In Lab Mario Alberto Escobedo MD CHEMISTRY ORDERABLES Performing Organization Address [facility] Co de Phone Number [facility] [place] [address] * (ABNORMAL) Sedimentation rate (06/03/2016 11:45 AM EDT) Sed Rate 41(H) 0 - 20 mm/hr [facility] Blood specimen (specimen) 06/03/2016 11:45 AM EDT 06/03/2016 12:04 PM EDT Narrative Resulting Agency Comment Spec In Lab Mario Alberto Escobedo MD HEMATOLOGY ORDERABLE S Performing Organization Address [facility]/ZIP Co de Phone Number [facility] [place] [address] * Lactate Dehydrogenase (06/03/2016 11:45 AM EDT) LDH 164 110 - 220 unit/L [facility] Blood specimen (specimen) 06/03/2016 11:45 AM EDT 06/03/2016 12:11 PM EDT Narrative Resulting Agency Comment Spec In Lab Mario Alberto Escobedo MD CHEMISTRY ORDERABLES Performing Organization Address [facility]/ZIP Co de Phone Number [facility] [place] [address] * Comprehensive metabolic panel (non-fasting) (06/03/2016 11:45 AM EDT) Glucose Lvl 90 65 - 199 mg/dL [facility] Comment:Diabetes: >=200 mg/d L plus symptoms BUN 11 8 - 18 mg/dL [facility] Creatinine 0.83 0.70 - 1.20 mg/dL [facility] Comment: Please note that the pediatric reference intervals supplied above were not validated at [facility]. Results from pediatric patients should be interpreted in conjunction to the patient's age, height and muscle mass. Sodium 143 135 - 145 mmol/L [facility] Potassium 4.0 3.5 - 5.0 mmol/L [facility] Comment: Please note: ??Patients with WBC >100,000 may have falsely elevated Potassium levels. ??For accurate Potassium quantification in these patients send serum separator tube (gold top) for subsequent determinations. ??Contact the Clinical Chemistry Laboratory if there are any questions. Chloride 104 98 - 107 mmol/L [facility] CO2 25 22 - 31 mmol/L [facility] Anion Gap 14 5 - 15 mmol/L [facility] Calcium 9.2 8.5 - 10.5 mg/dL [facility] Total Protein 7.0 6.1 - 8.0 gm/dL [facility] Albumin 4.0 3.2 - 5.2 gm/dL [facility] AST 17 0 - 30 unit/L [facility] ALT 9 0 - 30 unit/L [facility] Alk Phos 81 40 - 104 unit/L [facility] Total Bilirubin 0.4 0.2 - 1.3 mg/dL [facility] Bili, Direct 0.1 0.0 - 0.3 mg/dL [facility] Estimated GFR >60 >=60 [facility] Comment: This estimated GFR (eGFR) [...] the following links into your internet browser. [email or web address] Blood specimen (specimen) 06/03/2016 11:45 AM EDT 06/03/2016 12:11 PM EDT Narrative Resulting Agency Comment Spec In Lab Mario Alberto Escobedo MD [place] [address] documented in this encounter Visit Diagnoses Diagnosis [...] Hernandez) documented in this encounter Care Teams Data Support Specialist Relationship Specialty Start Date End Date Deborah Quiroga APRN PCP - General Family Medicine 03/24/16 02/04/23 documented as of this encounter
--- OUTSIDE RECORDS SUMMARY | 2024-02-22 14:16 | XMS_ITS | Encounter Summary ---
[place] [address] Care Team Providers Care Freezing Room Worker Name Role Phone Deborah Quiroga ANURAG Primary Care Provider [phone] Reason for Visit * Reason Onset Date Comments Pre Procedure Call 06/18/2016 Encounter Details Date Type Department Care Team (Late st Contact Info) Description 06/18/2016 Telephone Hematology [place] [address] Alexandrea Greenwood RN Pre Procedure Call Social [...] PM EDT Office Visit Dermatology at [address] [phone] Marek Bonilla MD [address] [facility] [place] [address] 06/05/2024 11:30 AM EST Office [place] [address] Magdalena Peralta MD [facility] [place] [address] documented as of this encounter Visit Diagnoses Not on filedocumented in this encounter Care Teams Freezing Room Worker Relationship Specialty Start Date End Date Deborah Quiroga APRN PCP - General Family Medicine 03/24/16 02/04/23 documented as of this encounter
--- OUTSIDE RECORDS SUMMARY | 2024-02-22 14:16 | XMS_ITS | Encounter Summary ---
[place] [address] Care Team Providers Care Industrial Relations Commissioner Name Role Phone Jerel Sofia Garcia APRN Primary Care Provider [phone] Encounter Details Date Type Department Care Team (Late st Contact Info) Description 11/12/2014 8:10 AM EDT - 11/12/2014 11:59 PM EDT Hospital [place] [phone] CLINIC, DR ABE Burrell, Antelmo Porter MD [address] [address] Discharge Disposition: Home Social History Tobacco Use [...] 4:15 PM EDT Office Visit Dermatology at [place] [address] [place] [address] Marek Bonilla MD [address] [facility] [place] [address] 06/05/2024 11:30 AM EST [place] [address] Magdalena Peralta MD [facility] [place] [address] documented as of this encounter Procedures Procedure [...] mLs documented in this encounter Care Teams Industrial Relations Commissioner Relationship Specialty Start Date End Date Sofia Beltrán APRN [address] [place] [address] PCP - General 11/12/14 03/23/16 documented as of this encounter
--- OUTSIDE RECORDS SUMMARY | 2024-02-22 14:16 | XMS_ITS | Encounter Summary ---
Author Organization [facility] [address] Care Team Providers Care Human Capital Consultant Name Role Phone Ashley Quirogan [place] ANURAG Primary Care Provider [phone] Encounter Details Date Type Department Care Team (Late st Contact Info) Description 07/13/2016 External Results [place] [address] Provider, Scanning Social History Tobacco [...] PM EDT Office Visit Dermatology at [address] [place] [phone] Marek Bonilla MD [address] [place] [address] [place] [address] 06/05/2024 11:30 AM EST Office [place] [address] Magdalena Peralta MD [facility] [place] [address] documented as of this encounter Procedures Procedure Name Priority Date/Time Associated Diagnosis Comments SURGICAL PATHOLOGY SCAN Routine 07/13/2016 documented in this encounter Results * Scan Doc: Surgical Pathology (07/13/2016) Nitesh Pina Jr., MD MEDIA MGR SCAN EXT O RDR/RSLT documented in this encounter Visit Diagnoses Not on filedocumented in this encounter Care Teams Human Capital Consultant Relationship Specialty Start Date End Date Deborah Quiroga, SENIOR NET DEVELOPER PCP - General Family Medicine 03/24/16 02/04/23 documented as of this encounter
[2024-02-24 14:00] VITALS: BP 139/59; PULSE 85
== END 2024-03-01 23:59 | disposition home or self-care (01) ==
LOC: CR 14:09
PROVIDERS: PCP Family Medicine; Visit Provider Internal Medicine Cardiovascular Disease
DX: R69 Illness, unspecified (principal)

== ENCOUNTER 2024-03-08 12:12 | Outpatient (CLI) | payer MEDICARE, BC, SELFPAY ==
[2024-03-08] VITALS (19 sets, daily range): BP systolic 130–159; BP diastolic 57–78; PULSE 66–78; RESP 9–20; TEMP 36.6; O2SAT 97–100
--- NOTE | 2024-03-08 06:00 | DI.RAD_ITS ---
Exam(s) XR PAIN CLINIC FLUORO JOINT IN EXAM: XR PAIN CLINIC FLUORO JOINT IN CLINICAL HISTORY: DX: Right Knee Osteoarthritis. TECHNIQUE: Fluoroscopy was provided for the referring physician for guidance with performing pain cl inic injection procedure. COMPARISON: No exams were available for comparison FINDINGS: Please see procedure note for details. Fluoro time: 52.5 seconds RADIATION DOSE DELIVERED: gilmer Coronado=2.74 mGy
[2024-03-08] MEDS: fentaNYL 100 MCG/2 ML VIAL IVP (13:35)
[2024-03-08] MEDS: Midazolam 2 MG/2 ML VIAL IVP (13:35)
[2024-03-08] MEDS: Lidocaine 2% Multi-Dose 20 ML VIAL IJ (14:12)
[2024-03-08] MEDS: Bupivacaine 0.5% Pres-Free 10 ML VIAL IJ (14:12)
[2024-03-08] MEDS: Lactated Ringers 500 ML 80 ML IV (14:13)
[2024-03-08] MEDS: Nerve Block Tray 1 EACH MC (14:13)
[2024-03-08] MEDS: methylPREDNISolone ACETATE 40 MG/ML VIAL IJ (14:13)
--- NOTE | 2024-03-13 08:39 | PDOC.PAIN_ITS ---
Date of service: 03/08/24 Time of Service: 13:50 Pain Managment Procedure Note Procedure Note Procedure Note: PROCEDURE NOTE RIGHT GENICULAR NERVE RADIOFREQUENCY ABLATION Date of Service: March 08, 2024 Patient: Purnima Thacker Provider: Chandler Brooks DO, MPH Purnima Thacker has been referred to the [facility] for Right genicular nerve radiofrequency ablation with the [employer] machine. Pre-operative diagnosis: Pain in right knee M25.561 Post-operative diagnosis: Same Pre-Procedure Pain: VAS=7/10 Comments: Previous genicular nerve blocks to the Right knee. PROCEDURE: 1. Superolateral genicular branch from the vastus lateralis 2. Superomedial genicular branch from the vastus medialis 3. Inferomedial genicular branch from the saphenous nerve 4. Terminal branch of the nerve vastus intermedius Purnima was interviewed and the medical record reviewed. There were no medical, pharmacologic, radiographic or other structural contraindications to attempting fluoroscopically guided Right genicular nerve radiofrequency ablation. Risks and potential side effects as well as potential benefit of the procedure were reviewed with Purnima Thacker , and the patient's voiced concerns were addressed. After I believed that the patient was completely informed, the printed consent form was signed. Standard time-out procedure was performed. Purnima Thacker was brought into brought to the procedure room and placed on the fluoroscopy table in a comfortable supine position and automated blood pressure cuff and pulse oximeter applied. A grounding pad was placed on the right ankle. The place for needle placement was obtained by manual palpation with radiographic confirmation. The skin entry points for approaching Right superolateral genicular nerve, the superomedial genicular nerve, nerve of the vastus intermedius and the inferomedial genicular was identified under the most advantageous fluoroscopic view and marked. Following thorough Chlorhexadine preparation of the skin and draping, 1% lidocaine infiltration of the skin entry point and subcutaneous tissues was accomplished using a 1.5 25G needle. Next, the 17G 50 mm radiofrequency cannula needle with a 4mm active tip was advanced to os at the location of the specific nerve roots (4) using fluoroscopic guidance. Next, motor testing was performed and no abnormal findings were found. Next, 1 cc of 2% Lidocaine was injected at each site after negative aspiration. The lesion was then created with 80 degrees Celsius for 2 minutes and 30 seconds each. 1/4 cc of Depo-Medrol (40 mg/cc) was then injected at each site followed by 1 cc of 0.5% Bupivacaine as the needle was withdrawn. There was no unusual discomfort expressed by Purnima. The needles were withdrawn without difficulty. Purnima was observed and was without hemodynamic, neurologic, or allergic reactions.? Fluoroscopic images were digitally archived. Purnima's vital signs were stable throughout the procedure and were as recorded in the docflowsheet by the nursing staff. If given, dosages of intravenous drugs for anxiolysis and analgesia were documented in MAR. POST PROCEDURE EVALUATION: IMPRESSION: 1. Medication given is documented in the MAR 2. Follow up plan: Purnima to contact [facility] as needed. This procedure may be repeated if the patient achieves at least 50% improvement in pain and/or function for at least 6 months. 3. Estimated Blood Loss: <5ml 4. Fluoroscopy time: Documented in the EMR Follow up plans and appointments were discussed with Purnima. Post procedure instruction was given as documented in nursing documentation and having met discharge criteria, Purnima was discharged from the [facility]. COMMENTS: No apparent complications. Post-procedure pain: VAS= 1/10. Lucia WJ1, Moe SJ, Sean JG, Chino JG, Shon GRANDE, Park PH, Linares JW. Radiofrequency treatment relieves chronic knee osteoarthritis pain: a double-blind randomized controlled trial. Pain. 2010;152(3):481-7. doi: 10.1016/j.pain.2010.09.029. Maile S1, Germain ON2, Kiara Y3, ?zl?mauro P2, Hernan U1, Satya ?m?rl? I. Which one is more effective for the clinical treatment of chronic pain in knee osteoarthritis: radiofrequency neurotomy of the genicular nerves or intra- articular injection? Int J Rheum Dis. 2016 Mar 13. I personally completed the entire procedure. CHANDLER BROOKS DO, MPH ABPM&R - Subspecialty board certification in Pain Medicine [facility]
== END 2024-03-08 12:13 | disposition home or self-care (01) ==
LOC: PC 12:12
PROVIDERS: PCP Family Medicine; Visit Provider Preventive Medicine Occupational Medicine
DX: M25.561 Pain in right knee (principal)
CPT/HCPCS: 64624; 77002; J0665; J1010; J2003; J2250; J3010

== ENCOUNTER 2024-03-21 09:43 | Day surgery (SDC) | payer MEDICARE, BC, SELFPAY ==
--- NOTE | 2024-03-20 14:46 | PDOC.DSDIS_ITS ---
Date of service: 03/21/24 Time of Service: 12:43 Discharge Plan Disposition Patient Disposition: Home Condition: Good Discharge Details Reason For Visit: stomach and colon scope Attending Provider: Consuelo Guerrero Primary Care Provider: Magdalena Acosta Home Meds and New Rx's Prescriptions: Continued amoxicillin 500 mg capsule 2,000 mg PO PRN PRN Patient Comments: Prior to dental procedures Tracy Rx Instructions: Before dental appointments. (DME) blood-glucose meter Misc See Rx Instructions .ROUTE .MEDSUPPLY Qty: 1 0RF Rx Instructions: As directed to check blood glucose daily. No insulin. Dispense covered brand. (DME) Blood Glucose Test Strip See Rx Instructions .ROUTE .MEDSUPPLY Qty: 100 3RF Rx Instructions: As directed to check blood glucose daily. No insulin. Dispense covered brand. (DME) lancets Misc See Rx Instructions .ROUTE .MEDSUPPLY Qty: 100 3RF Rx Instructions: As directed to check blood glucose daily. No insulin. Dispense covered brand. cyanocobalamin (vitamin B-12) 1,000 mcg capsule 500 mcg PO DAILY aspirin 81 mg tablet,delayed release (DR/EC) 81 mg PO DAILY pantoprazole [Protonix] 40 mg tablet,delayed release (DR/EC) 40 mg PO DAILY Qty: 30 12RF clopidogrel 75 mg tablet 75 mg PO DAILY metoprolol succinate 50 mg tablet extended release 24 hr 50 mg PO DAILY Qty: 90 3RF losartan 25 mg tablet 25 mg PO DAILY Qty: 90 3RF multivitamin [Daily Multi-Vitamin] 1 EACH tablet 1 ea PO DAILY acetaminophen 500 MG tablet 1,000 mg PO Q6H PRN atorvastatin 10 mg tablet 10 mg PO DAILY Qty: 90 3RF nystatin 100,000 unit/gram powder 1 applic topical BID Qty: 60 0RF spironolactone 25 mg tablet 12.5 mg PO DAILY Qty: 45 3RF Rx Instructions: Dr. Burrell hydroxychloroquine 200 mg tablet 200 mg PO DAILY Patient Comments: pt states unsure if this is the correct dose, but this is what is listed in her chart 05/08/23 Discontinued polyethylene glycol 3350 17 gram/dose powder 238 g PO ONCE Qty: 238 0RF Rx Instructions: take per colonoscopy instructions bisacodyl [Dulcolax (bisacodyl)] 5 mg tablet,delayed release (DR/EC) 5 mg PO ONCE Qty: 4 0RF Rx Instructions: take per colonoscopy instructions Discharge Instructions Additional Instructions: DSU Colonoscopy Post- Op Instructions Instructions for Everyone who is given Anesthesia: For your safety, please do the following for the next twenty-four (24) hours: *Do Not operate a motor vehicle (car, truck, motorcycle, etc.) *Do Not drink alcoholic beverages or use any recreational drugs for the first 24 hours or while taking pain medications. The medications in your body may have a reaction that can be dangerous. *Do Not make any important decisions or sign any important papers. Findings: -Hiatal hernia -Otherwise stomach is normal -Lima diverticula Colon polyps x 2 -lab work today. Depending on what this shows, I may refer you to hematology Resume ASA/plavix: Wednesday am 1. No lifting over 20 pounds or strenuous activity for the first 24 hours after your procedure. After 24 hours there are no restrictions on your activity but you may feel fatigued for a few days. 2. After you arrive home you may have a light meal and return to your normal diet as you can tolerate it without feeling sick to your stomach. 3. You may have a bloated, gaseous feeling in your belly (abdomen) after a colonoscopy. Passing gas and belching will help. Walking or lying down on your left side with your knees flexed may relieve the discomfort. Call the office at [phone] (Office) or [phone] (Hospital) right away if you notice any of the following: a.Vomiting of blood or ?coffee ground stools?. b.Rectal bleeding 1Tbsp, blood clots or continuous bleeding. c.Severe belly (abdominal) pain. d.A hard distended belly (abdomen) and an inability to pass gas. 4. Please don?t expect to have a normal BM (bowel movement) for 2-3 days after your procedure. 5. If there are questions regarding the findings of your procedure, please contact your doctor 6. If you are unable to contact your doctor with a problem, contact the hospital at [phone]. 7. Continue all your regular medications unless directed otherwise. I understand the above instructions and have no questions. Signature of Patient or Adult Escort Name of Responsible Adult Escort Signature of Nurse Date/Time Stand Alone Forms: Anesthesia Discharge Inst., Luis Mercedes (DSU) Activity:: see above Diet:: see above Discharge Orders Discharge Orders: Discharge Order (Routine); Ordered 03/21/24 Ordered By: Consuelo Guerrero DS: Diagnosis Discharge Diagnosis (1) Essential hypertension: Status: Chronic (2) Cardiomyopathy: Status: Resolved (3) Nonischemic cardiomyopathy: Status: Acute (4) S/p TAVR (transcatheter aortic valve replacement), bioprosthetic: Status: Acute (5) Hyperlipidemia, unspecified: Status: Chronic (6) Anemia: Status: Chronic Asessment and Plan: The patient is seen and examined after their colonoscopy.? The patient has been able to pass gas.? They are not having abdominal pain.? They have been able to tolerate liquids and a snack.? They do not have any nausea or vomiting.? They are not having any chest pain or shortness of breath.??? They are not having any rectal bleeding. Their vital signs have been stable-see nursing notes. We discussed findings during their colonoscopy, and any biopsies that were done/polyps that were removed. The patient will be sent a letter with any biopsy results, and when to repeat the colonoscopy.-see discharge instructions. Patient was given explicit instructions to follow-up regarding colonoscopy-refer to discharge instructions.? We reviewed resumption of medications. Patient verbalized understanding and discharged in stable and satisfactory condition- See nursing notes. (7) Chronic idiopathic neutropenia: Status: Chronic (8) Positive FRANCISCO (antinuclear antibody): Status: Chronic (9) Stroke: Status: Chronic (10) NICOLAS (obstructive sleep apnea): Status: Chronic (11) Hiatal hernia: Status: Chronic (12) Pancolonic diverticulosis: Status: Acute
--- NOTE | 2024-03-21 08:12 | W.ANESPRE ---
General Info Date of Service Date Performed: 03/21/24 Height: 5 ft 1 in Weight: 81.647 kg Body Mass Index (BMI): 34.0 Surgical Procedure: Operation Date: 03/21/24 11:20 Proposed Procedure Side Surgeon p Colonoscopy/Gastroscopy Consuelo Guerrero, DO Meds Allergies and Home Medications Allergies Allergy/AdvReac Type Severity Reaction Status Date / Time No Known Allergies Allergy Verified 03/17/24 12:29 Home Medication ?Medication ?Instructions ?Recorded multivitamin (Daily Multi-Vitamin 1 ea PO DAILY 06/05/15 tablet) acetaminophen 500 mg tablet 1,000 mg PO Q6H PRN 09/29/16 amoxicillin 500 mg capsule 2,000 mg PO PRN PRN 09/28/18 blood sugar diagnostic (Blood #100 ea 05/21/21 Glucose Test strips) blood-glucose meter #1 ea 05/21/21 lancets #100 ea 05/21/21 atorvastatin 10 mg tablet 10 mg PO DAILY #90 tabs 08/13/22 cyanocobalamin (vitamin B-12) 500 mcg PO DAILY 09/04/22 1,000 mcg capsule nystatin 100,000 unit/gram topical 1 applic topical BID #60 grams 11/30/22 powder spironolactone 25 mg tablet 12.5 mg (1/2 x 25 mg) PO DAILY #45 04/29/23 tab-caps hydroxychloroquine 200 mg tablet 200 mg PO DAILY 05/05/23 clopidogrel 75 mg tablet 75 mg PO DAILY 09/06/23 losartan 25 mg tablet 25 mg PO DAILY #90 tabs 09/06/23 metoprolol succinate 50 mg 50 mg PO DAILY #90 tabs 09/06/23 tablet,extended release 24 hr aspirin 81 mg tablet,delayed 81 mg PO DAILY 10/18/23 release pantoprazole 40 mg tablet,delayed 40 mg PO DAILY #30 tabs 02/24/24 release (Protonix) Current Visit Medications: Current Medications Generic Name Dose Route Start Last Admin Trade Name Freq PRN Reason Stop Dose Admin Hyoscyamine Sulfate 0.125 mg 03/21/24 02:27 Hyoscyamine 0.125 Mg Sl/Oral/Chew SL 04/20/24 02:26 DIRECTED PRN Ringer's Solution 1,000 mls @ 80 mls/hr 03/21/24 06:00 IV 04/19/24 23:59 INFUSION BRYANT Ampicillin Sodium 1 gm/ Sodium 50 mls @ 100 mls/hr 03/21/24 06:00 Chloride IVPB 03/21/24 16:00 PREOP [facility] IV Miscellaneous Supplies 1 each 03/21/24 06:00 Iv Access IV 04/19/24 23:59 DIRECTED BRYANT Ondansetron HCl 4 mg 03/21/24 02:27 Ondansetron 4 Mg/2 Ml Vial IVP 04/20/24 02:26 Q4H PRN PRN Nausea / Vomiting Sodium Chloride 0 ml 03/21/24 06:00 Normal Saline Flush 10 Ml Syr IV 04/19/24 23:59 PRN PRN Sodium Chloride 0 ml 03/21/24 06:00 Normal Saline 10 Ml Vial IJ 04/19/24 23:59 DIRECTED PRN Sterile Water 0 ml 03/21/24 06:00 Water,Injection,Sterile 10 Ml Vial IJ 04/19/24 23:59 DIRECTED PRN PFSH Active Problems Active Problems: Problem Status Onset Code Umbilical hernia Acute ~01/2024 K42.9 Osteoarthritis of right knee Chronic M17.11 Nonischemic cardiomyopathy Acute I42.8 S/p TAVR (transcatheter aortic valve replacement), bioprosthetic Acute Z95.3 Stroke Chronic I63.9 Abnormal brain MRI Acute R90.89 Weakness Acute R53.1 Babinski reflex Acute R29.2 Pre-procedure lab exam Acute Z01.812 Cervical spondylosis Acute M47.812 Vitamin B12 deficiency Acute E53.8 Degenerative joint disease of right knee Chronic M17.11 Peripheral neuropathy Acute G62.9 Primary osteoarthritis involving multiple joints Acute M15.9 IFG (impaired fasting glucose) Chronic R73.01 Positive FRANCISCO (antinuclear antibody) Chronic R76.8 Pain of right tibia Acute M89.8X6 Bilateral chronic knee pain Acute M25.561, M25.562, G89.29 Anemia Chronic D64.9 Bilateral carpal tunnel syndrome Acute G56.03 Corneal dystrophy Acute 02/18/22 H18.509 Cataracts, bilateral Acute 02/18/22 H26.9 Raynauds phenomenon Acute I73.00 Ocular rosacea Acute ~07/2021 L71.8 CKD (chronic kidney disease) Chronic N18.9 Diverticulosis Chronic K57.90 Hyperlipidemia, unspecified Chronic E78.5 Rosacea Chronic L71.9 Candidate for statin therapy due to risk of future cardiovascular event Chronic 12/13/15 Z91.89 Cardiomyopathy Resolved 01/23/14 I42.9 Chronic idiopathic neutropenia Chronic 07/20/16 D70.9 Essential hypertension Chronic 09/19/12 I10 Essential tremor Chronic 06/28/13 G25.0 History of aortic valve replacement Chronic 10/14/16 Z95.2 NICOLAS (obstructive sleep apnea) Chronic 05/28/14 G47.33 Obesity Chronic 06/28/13 E66.9 Medical History Medical History EVANS (acute kidney injury) cardiorenal syndrome 05/08/23 at [facility] Cardiogenic shock 05/11/23 [facility] Renal lesion F/u US 12/2021: stable Colon polyp Depressive disorder (06/28/13) Long-term Wellbutrin RX Counseling Severe aortic stenosis S/p AVR 09/21/2016 cadaver valve Surgical History Surgical History S/P TAVR (transcatheter aortic valve replacement) (~05/2023) 05/12/23 at [facility] [place] valve in valve TAVR, acute decompensation EF 25% RH Colonoscopy - MAC Colonoscopy - IV Sedation (10/23/13) Cholecystectomy (06/29/07) Biopsy of breast s/p mammogram; benign Replacement of aortic valve (09/21/16) w/aortoplasty for supravalvular stenosis at [facility] Tobacco Smoking/Tobacco Use Status: Never Passive smoking exposure: No Alcohol Alcohol Intake: never Substance Use Substance use: Never Substance use type: does not use Vital Signs and Lab Results Vital Signs Most Recent Vital Signs in EMR: Temp Pulse Resp BP Pulse Ox 36.3 C L 90 16 119/70 98 03/21/24 09:45 03/21/24 09:45 03/21/24 09:45 03/21/24 09:45 03/21/24 09:45 Lab Results Blood Type / Crossmatch: No Data to Display Complete Blood Count: White Blood Count 2.70 10^3/uL (4.4-10.8) L 02/24/24 13:39 Red Blood Count 3.18 10^6/uL (3.93-5.22) L 02/24/24 13:39 Hemoglobin 10.6 g/dL (11.2-15.7) L 02/24/24 13:39 Hematocrit 32.8 % (36.0-46.0) L 02/24/24 13:39 Platelet Count 149 10^3/uL (130-400) 02/24/24 13:39 Complete Metabolic Panel: Sodium 144 mmol/L (136-145) 02/24/24 13:39 Potassium 4.0 mmol/L (3.5-5.1) 02/24/24 13:39 Chloride 107 mmol/L (98-107) 02/24/24 13:39 Carbon Dioxide 28.7 mmol/L (21.0-32.0) 02/24/24 13:39 BUN 16 mg/dL (7-18) 02/24/24 13:39 Creatinine 0.9 mg/dL (0.55-1.02) 02/24/24 13:39 Est GFR (CKD-EPI 2020) 69.64 (mL/min/1.73m2) 02/24/24 13:39 Calcium 9.8 mg/dL (8.5-10.1) 02/24/24 13:39 Glucose 125 mg/dL (74-106) H 02/24/24 13:39 Liver Function Panel: No Data to Display Coagulation Panel: No Data to Display Cardiac Panel: No Data to Display Arterial Blood Gas: No Data to Display Venous Blood Gas: No Data to Display Pancreas Panel: No Data to Display Thyroid Panel: No Data to Display Infectious Disease: No Data to Display Blood Cultures: No Data to Display Toxicology Panel: No Data to Display Imaging and Studies Imaging and Studies Study information below may be from another EMR and interpreted by another provider. Please see original notes in EMR for more complete details. EKG Summary: 05/24: sinus tach, long KS. Stress Test Summary: 09/16: ? ischemia. Echocardiogram Summary: 09/25: LVEF 50-55%. mild RV dilation. bioprosthetic AoV, 15 mmhg mean gradient. moderate MR. RVSP 17 mmhg. Pulmonary Function Summary: 2023: normal PFTs Anesthesia Assessment and Plan Anesthesia History Personal History: No History of Anesthesia Complications Family History: No Family History of Anesthesia Complications Exercise Tolerance Exercise Tolerance: Metabolic Equivalents>4 Cardiac & Pulmonary Exam Cardiac Exam: Normal S1/S2 Heart Sounds Pulmonary Exam: Clear Bilateral Breath Sounds Implantable Cardiac Device Does patient have a Pacemaker or an ICD?: No Airway Exam Known Difficult Airway: No Mallampati Class: 3 Mouth Opening: Narrow (< 3cm) Thyromental Distance: Less than 3 cm Neck Range of Motion: Full ROM Neck Circumference: Normal Teeth Condition: Normal Dentition ASA Classification ASA Score: ASA 3 Emergency Case?: No NPO Status NPO Status: NPO Clears >2 hours, Solids >8 hours Anesthesia Plan Resuscitation Status: Full Code Anesthesia Technique: General Anesthesia Airway Planned: Natural Airway Monitors Used: Standard Monitors Preoperative Comments:: 68 yo female for EGD/colo. Sig PMHx: (AVR 2017. valve failure to urgent TAVR in 2022 due to cardiogenic shock. LM stent placed during TAVR for protection. Brief CPR during valve placement. EF recovered, doing cardiac rehab, doing well), HTN, mild CAD, NICOLAS, Raynaud's/mixed connective tissue disorder (followed by [facility] rheum). Previous Anes: - [facility]/TAVR, easy mask, mac 3 grade 1 - colo, fent/midaz, prop, no issues.
[2024-03-21 08:25] VITALS: BMI 34.0
[2024-03-21 09:45] VITALS: BP 119/70; PULSE 90; RESP 16; TEMP 36.3; O2SAT 98
[2024-03-21] MEDS: Lactated Ringers 1,000 ML 80 ML IV (10:37)
--- NOTE | 2024-03-21 11:35 | BOWEL_PTH ---
PATIENT: Purnima Thacker LOC: [facility] U#:[id number] AGE/SX: 68/F ROOM: RE03/21/[address]: Consuelo Guerrero : 1955 BED: DIS: 03/21/2024 SPEC #: [id number] RECD: 03/21/24 13:08 STATUS: PAUL REQ #: [id number] LUCIO: 03/21/24 11:[address]: Consuelo Guerrero DEPT: Surgical Specimen RECD BY: Jacik Fermin ENTERED: 03/21/24 13:11 SP TYPE: Bowel OTHR DR: Magdalena Acosta Tissues: 1 - BIOPSY BOWEL 2 - BIOPSY BOWEL 3 - STOMACH BIOPSY 4 - ESOPHAGUS BIOPSY 5 - ESOPHAGUS BIOPSY 6 - BIOPSY BOWEL 7 - BIOPSY BOWEL Procedures: GROSS AND MICRO LEVEL 4 Comments: [id number]
[2024-03-21 12:24] VITALS: BP 107/81; PULSE 71; RESP 16; TEMP 36.5; O2SAT 99
--- NOTE | 2024-03-21 12:26 | W.ANESPOSTOP ---
Postoperative Evaluation Date, Time and Location Date Performed: 03/21/24 Time Performed: 12:26 Patient Location: Day Surgery Unit Vital Signs Most Recent Imported Vital Signs: Most Recent Vital Signs Temp Pulse Resp BP Pulse Ox 36.5 C 71 16 107/81 99 03/21/24 12:24 03/21/24 12:24 03/21/24 12:24 03/21/24 12:24 03/21/24 12:24 Pain Score Most Recent Pain Score: Most Recent Pain Score Pain Level 0 03/21/24 12:24 Assessment Mental Status: Awake (Alert & Oriented to Patient Baseline) Airway and Respiratory Function: Patent airway with normal (patient baseline) respiratory exam Cardiovascular Function: Hemodynamically Stable Hydration Status: Adequately Hydrated Nausea & Vomiting: No Nausea or Vomiting Pain: Pt. Denies Any Pain Peripheral Nerve Block: Patient did not receive a nerve block
[2024-03-21 12:51] VITALS: BP 121/79; PULSE 89; RESP 16; TEMP 36.5; O2SAT 100
[2024-03-21 13:10] LABS: ESR 13 mm/hr (0-30)
[2024-03-21 13:29] LABS: LDH 253 U/L (81-234)
[2024-03-21 13:31] LABS: C-Reactive Protein < 0.50 mg/dL (<or=0.5)
[2024-03-22 10:29] LABS: Haptoglobin 183 mg/dL (32-197)
--- NOTE | 2024-03-22 16:18 | W.PM.ENDDOP ---
Date of service: 03/21/24 Time of Service: 14:00 Endoscopy Report DATE OF PROCEDURE: 03/21/24 PRE-OP DIAGNOSIS: anemia POST-OP DIAGNOSIS: other (hiatal hernia ) SURGEON: Consuelo Guerrero ANESTHESIA TYPE: General:No Airway ESTIMATED BLOOD LOSS: 1 PATHOLOGY: other COMPLICATIONS: None DISPOSITION: same day PROCEDURE DESCRIPTION: Informed consent was obtained from the pt; explaining the benefits and Risks: bleeding, infections, perforations {which could require surgery or antibiotics and prolonged hospital stay}, or ostomy, and complications of anaesthesia, merle aspiration). The patient was take to the procedure room and placed in a supine position. Monitors were applied and a time out was done. The patients name, date of , procedure type, allergies to medications and metal in their body was reviewed. A bite block was placed and the patient was sedated. Once sedated and comfortable an Olympus gastroscope (see RN notes for scope #) was advanced through the oropharynx which was grossly normal, and passed into the esophagus. The proximal and mid-esophagus were normal. The distal esophagus does not show any: dilation/strictures/varices/erosions or ulcers/bleeding noted. The scope was advanced into the stomach and through the pylorus into the proximal jejunum. A bx is taken for celiac Dx . The duodenum was noted to be normal. Biopsies were done of the duodenal bulb.. The scope was retracted back into the stomach and biopsies were taken of the antrum. There were no gastritis/gastropathy/ ulcers/masses noted. The scope was retroflexed. The cardia and fundus were noted to be normal. There 2cm sliding type a hiatal hernia noted. The scope was retracted back into the esophagus and biopsies were done of the GE junction (in all 4 quadrants) and distal esophagus (2cm above the GE junction) to rule out Basurto's. All specimens are retrieved and no bleeding was noted. The Z line was regular. The GE junction was at 38 cm. The scope was removed and the patient was woken up and taken back to [facility] in stable condition.
--- NOTE | 2024-03-22 16:20 | COLE_ITS ---
Date of service: 03/21/24 Time of Service: 14:30 Colonoscopy Report Date of procedure: 03/21/24 Pre-op diagnosis general: anemia Post-op diagnosis procedure note: other (I/E hemorrhoids/pandiverticula/colon polyps) Surgeon: Consuelo Guerrero Anesthesia Type: General:No Airway Estimated blood loss (mL): 1 Pathology: other Complications: None Disposition: same day Prep: Miralax/Dulcolax Retraction Time: 20 Procedure Description: After informed consent was obtained, explaining risks of the procedure, including but not limits to: bleeding, infections, complications of anesthesia, perforations (which may require antibiotics and /or surgery and stay in the hospital), and abdominal pain/cramping. The patient was taken to the procedure room and placed in a left decubitous position. Monitors were applied and a time out was done. The patients name, date of , procedure, allergies to medications and metal in their body was reviewed. The patient was then sedated. Once sedated and comfortable a rectal exam was done. External exam reveals mild ext. hemorrhoids. . Internal exam revealed a normal sphincter tone and no palpable masses. The previously lubricated Olympus scope was then introduced (see RN notes for sc ope number) and retrofelexed. Julio II x1 column internal hemorrhoids were identified. The scope was then advanced to the cecum without difficulty. The TI and appendiceal orifice were identified. The scope was then slowly retracted over 20 minutes back into the rectum. Polyps: cecum peduculated .75cm that is removed w/ a cold snare. A flat, .5cm polyp was found at 80cm. This was removed with a cold biting forceps. All of the specimen was retrieved. This will be sent to pathology. There is no bleeding noted from the polypectomy site. . Diverticula: pt had a moderate amount of larged mouthed diverticula that do extend all the way over to the cecum. There were no signs of active bleeding or infection. . The mucosa is pink and healthy w/ a normal vascular pattern. The scope was removed, and the patient was woken up and taken back to Same day surgery in stable condition. The patient tolerated the procedure well and there were no immediate complications. Follow up: The patient should follow up in path pd, unless they develop changes in bowel habits or other new gastrointestinal complaints. [place] Bowel Prep [place] Bowel Prep Right Colon: 3 Left Colon: 3 Transverse Colon: 3 Total Score: 9
== END 2024-03-21 13:54 | disposition home or self-care (01) ==
LOC: SUR 09:43
PROVIDERS: PCP Family Medicine; Visit Provider Surgery
PROC: (CPT 45385; principal; 2024-03-21 11:15)
DX: Z12.11 Encounter for screening for malignant neoplasm of colon (principal); G47.33 Obstructive sleep apnea (adult) (pediatric); K44.9 Diaphragmatic hernia without obstruction or gangrene; K57.30 Diverticulosis of large intestine without perforation or abscess without bleeding; K64.1 Second degree hemorrhoids; D12.0 Benign neoplasm of cecum; D12.4 Benign neoplasm of descending colon; K31.89 Other diseases of stomach and duodenum
CPT/HCPCS: 45385; 45380; 43239; 36415; 85652; 86880; 88305; 83010; 83615; 86140; J2001; J2405; J2704

== ENCOUNTER 2024-03-30 14:25 | Outpatient (RCR) | payer SELFPAY ==
[2024-03-02 00:34] VITALS: BP 139/59; PULSE 85
[2024-03-02 13:54] VITALS: BP 110/44; PULSE 74
--- OUTSIDE RECORDS SUMMARY | 2024-03-02 13:55 | XMS_ITS | Encounter Summary ---
[place] [address] Care Team Providers Care Software Client Architect Name Role Phone Magdalena Acosta MD Primary Care Provider [phone] Encounter Details Date Type Department Care Team (Latest Contact Info) Description 10/05/2023 10:52 AM EST - 10/05/2023 11:59 PM [email or web address] Hospital [place] [address] Mixed connective tissue disease Discharge Disposition: Home Social History Tobacco Use Types Packs/Day Years Used Date Smoking Tobacco: Never Smokeless Tobacco: Never Alcohol Use Standard Drinks/Week Comments No 0 (1 standard drink = 0.6 oz pur e alcohol) none [facility] Inpatient Questions Answer Date Recorded [...] 11:30 AM EST [place] [address] Magdalena Peralta MD [facility] [place] [address] 03/01/2025 4:15 PM EDT Office Visit Dermatology at [place] [address] [facility] [place] [address] Marek Bonilla MD [address] [facility] [address] [place] [address] documented as of this encounter Procedures Procedure [...] PFT FEV1/FVC Pre-BD Z-Score 0 COMPAS PFT UIX54-05 Actual Pre-BD 2.41 % COMPAS PFT VDU10-19 Predicted 1.8 % COMPAS PFT VUL92-79 Pre-BD % of Predicted 134 % COMPAS PFT HJP36-98 Pre-BD Z-Score 0.81 COMPAS PFT DLCO Hb [...] tissue documented in this encounter Care Teams Software Client Architect Relationship Specialty Start Date End Date Magdalena Acosta MD [address] [place] [address] PCP - General Family Medicine 02/05/23 documented as of this encounter
--- OUTSIDE RECORDS SUMMARY | 2024-03-02 13:55 | XMS_ITS | Encounter Summary ---
Author Organization [facility] Address [address] [place] [address] Care Team Providers Care Cleaner Window Name Role Phone Unavailable Primary Care Provider Unavailabl e Encounter Details Date Type Department Care Team (Late st Contact Info) Description 07/08/2010 Results Only [facility] Non-Invasive Cardiology - [facility] [address] [place] [address] Ashley Chavez, WILLIAM [address] [place] [address] Social History Tobacco Use Types Packs/Day Years [...] ? 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 Accession #: ? [id number] ? : ? 1955 (Age: 54) ??F [...] Ashley THOMAS PATHOLOGY ORDERABLES PAUL ARELLANO [address] [place] [address] documented in this encounter Visit Diagnoses Not on filedocumented in this encounter
--- OUTSIDE RECORDS SUMMARY | 2024-03-02 13:55 | XMS_ITS | Encounter Summary ---
Author Organization [facility] Address [address] [place] [address] Care Team Providers Care Tub Chucker Name Role Phone Scott Ashley WILLIAM Primary Care Provider [phone] Encounter Details Date Type Department Care Team (Late st Contact Info) Description 11/10/2013 Results Only [facility] [phone] Jeni Laird, HOSPITAL TRAY SERVICE WORKER [address] [place], [place] [phone] Social History Tobacco Use Types Packs/Day Years [...] ? 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 Accession #: ? [id number] : ? 1955 (Age: 58) ??F ?Collect Date: ? 11/10/2013 Location: ? [facility] ? Receive Date: ? 11/14/2013 Provider: ?[facility] TRAY SERVICE WORKER Copy to: ? Specimen/Source: ?Pap Test, [employer], [...] Report PAUL ARELLANO 11/10/2013 11/14/2013 Jeni Laird HOSPITAL TRAY SERVICE WORKER PATHOLOGY ORDERAB LES Performing Organization Address City/State/[facility] Co de Phone Number PAUL ARELLANO [address] [place] [address] documented in this encounter Visit Diagnoses Not on filedocumented in this encounter Care Teams Tub Chucker Relationship Specialty Start Date End Date Ashley Chavez ARNP [address] [place] [address] PCP - General 07/11/10 documented as of this encounter
--- OUTSIDE RECORDS SUMMARY | 2024-03-02 13:55 | XMS_ITS | Encounter Summary ---
Author Organization [facility] Address [facility] [place] [address] Care Team Providers Care Coal Bagger Name Role Phone Magdalena Acosta MD Primary [...] 11:30 AM EST [place] [address] Magdalena Peralta MD [facility] [place] [address] 03/01/2025 4:15 PM EDT Office Visit Dermatology at [place] [address] [facility] [place] [phone] Marek Bonilla MD [address] [place] [address] RD, [place] [address] documented as of this encounter Visit Diagnoses Not on filedocumented in this encounter Care Teams Coal Bagger Relationship Specialty Start Date End Date Magdalena Acosta MD [address] [place] [address] PCP - General Family Medicine 02/05/23 documented as of this encounter
--- OUTSIDE RECORDS SUMMARY | 2024-03-02 13:55 | XMS_ITS | Encounter Summary ---
Author Organization [facility] Address [address] [place] [address] Care Team Providers Care Intermediate Accountant Name Role Phone Unavailable Primary Care Provider Unavailabl e Encounter Details Date Type Department Care Team (Late st Contact Info) Description 07/08/2010 10:55 EST - 07/08/2010 10:56 EST Hospital Encounter [facility] - Other [address] [place] [address] Ashley Chavez, WILLIAM [address] [place] [address] Discharge Disposition: Home or Self Care Social [...]
--- OUTSIDE RECORDS SUMMARY | 2024-03-02 13:55 | XMS_ITS | Encounter Summary ---
Author Organization [facility] [place] [address] Care Team Providers Care Manager Mobility Name Role Phone Magdalena Acosta MD Primary Care Provider Encounter Details Date Type Department Care Team (Late st Contact Info) Description 12/02/2023 11:15 AM EDT Office [place] [address] Magdalena Peralta MD [facility] [place] [address] Mixed connective tissue disease Social History Tobacco [...] 1:5120 speckled; VIC negative; Myositis panel with CEMENT BLOCK MAKER ab 149.1 (positive); Anti U1RNP IgG 119; [...] list of questions that she sent via [facility] ahead of her visit, which we discussed [...] exposure. She has an appointment with her Quality Control Checker scheduled in January. (Dr Bonilla in [place]) ROS (positives in bold): Gen: no fevers, [...] but I encouraged her to contact her Quality Control Checker to see if she could have her [...] Dr. Tanisha Peralta MD Rheumatology Fellow Pager: [phone] * Federico Yee MD - 12/02/2023 11:15 [...] 11:30 AM EST Office [place] [address] Magdalena Peralta MD [facility] [place] [address] 03/01/2025 4:15 PM EDT Office Visit Dermatology at [address] [phone] Marek Bonilla MD [address] [facility], [place] [address] Scheduled Orders Name Type Priority Associated Diagnoses Orde r Schedule EKG 12 Lead ECG Routine Mixed connective tissue disease Expected: 12/02/2023, Expires: 06/03/2024 documented as of this encounter Visit Diagnoses Diagnosis Mixed connective tissue disease Other specified diffuse disease of connective tissue documented in this encounter Care Teams Manager Mobility Relationship Specialty Start Date End Date Magdalena Acosta MD [address] [place] [address] PCP - General Family Medicine 02/05/23 documented as of this encounter
--- OUTSIDE RECORDS SUMMARY | 2024-03-02 13:55 | XMS_ITS | Encounter Summary ---
Author Organization [facility] [place] [address] Care Team Providers Care Banana Grader Name Role Phone Magdalena Acosta MD Primary Care Provider [phone] Reason for Referral * Diagnostic Test (Routine) - New Request Specialty Diagnoses / Procedures Referred By Contac t Referred To Contact Cardiology Diagnoses S/P TAVR (transcatheter aortic valve replacement) Procedures Echocardiogram Transthoracic Antelmo Sharma MD [facility] [place] [address] [facility] [place] [address] Referral ID Status Reason Start Date Expiration Date Visits Requested Visits Authorized [id number] New Request Specialty Service Requested 12/16/2023 12/15/2024 1 1 Encounter Details Date Type Department Care Team (Late st Contact Info) Description 12/16/2023 Orders Only Cardiology at [address] [address] Antelmo Sharma MD [facility] [place] [address] S/P TAVR (transcatheter aortic valve replacement) [...] AM EST Office [place] [address] Magdalena Peralta MD [facility] [place] [address] 03/01/2025 4:15 PM EDT Office Visit Dermatology at [place] [address] [facility] [place] [address] Marek Bonilla MD [address] [facility], [place] [address] Scheduled Orders Name Type Priority Associated Diagnoses [...] replacement) documented in this encounter Care Teams Banana Grader Relationship Specialty Start Date End Date Magdlaena Acosta MD [address] [place] [address] PCP - General Family Medicine 02/05/23 documented as of this encounter
--- OUTSIDE RECORDS SUMMARY | 2024-03-02 13:55 | XMS_ITS | Encounter Summary ---
Author Organization [facility] [place] [address] Care Team Providers Care Insert Molding Operator Name Role Phone Magdalena Acosta MD Primary Care Provider [phone] Reason for Visit * Reason Comments Aortic Stenosis Coronary Artery Disease Hypertension Encounter Details Date Type Department Care Team (Latest Contact Info) Description 11/16/2023 11:40 AM EDT TH Visit (TeleHealth) Cardiology at [address] [address] Jay Maza PA [facility] [place] [address] Aortic valve stenosis, etiology of cardiac valve disease unspecified; Coronary artery disease, unspecified vessel or lesion type, unspecified whether angina present, unspecified whether agdaagux or transplanted heart Social History Tobacco Use Types Packs/Day Years Used Date Smoking Tobacco: Never Smokeless Tobacco: Never Alcohol Use Standard Drinks/Week Comments No 0 (1 standard drink = 0.6 oz pur e alcohol) none [facility] Inpatient Questions Answer Date Recorded [...] from the original note were not included. [facility] Interventional Cardiology CARDIOLOGY TELE VISIT NOTE 11/16/23 Patient: Purnima Thacker Prior to the initiation of our discussion, the risks and benefits of tele health visits were discussed, and the patient consented verbally to this being a virtual telehealth visit in lieu of an in person office visit. CARDIOLOGISTS: Antelmo Sharma MD ([facility] Cards) Maria Luz Mejia MD ([facility] Cards - [facility]) Problem List: Aortic valve stenosis: [...] fraction I35.0 Mild coronary artery disease by [facility] 11/09/2022 I25.10 Heart failure with reduced ejection [...] notable for coronary artery protection given low [id number] distance. There was no obstruction post Valve [...] had a very reassuring recent echo in [facility], in scanned docs. LVEF 55%. [...] leads Confirmed by MD Harshil, Haris Bell ([id number]) on 05/10/2023 8:11:46 AM Cardiac Cath 11/09/2022 [...] brittney trans Femoral, inside 25mm surgical from 2016, with LM pci - could not safely remove pre-positioned stent post valve deployment, so deployed stent). On DAPT. Preserved LVEF, her ventricle has recovered nicely. CCS-o no angina, nYHA 1 no rest symptoms, no dyspnea with exertion. DAPT until 07/2024 at least (aspirin + plavix) F/U with Dr Mejia, repeat ECHo in one year. EKATERINA Thompson Time spent: [id number] 0-5min 2685PUF0 6-10min 0467WUR9 11-15min x [id number] 16-20min 1642YUJ7 21-30min 3124MJC2 31-40min 3870CNV7 40+ min Jay Maza PA-C Interventional Cardiology [facility] Pager [phone] documented in this encounter Plan of Treatment Upcoming Encounters Date Type Department Care Team (Late st Contact Info) Description 06/05/2024 11:30 AM EST Office [place] [address] Magdalena Peralta MD [facility] DR RHEUMATOLOGY [place] [address] 03/01/2025 4:15 PM EDT Office Visit Dermatology at [place] [address] [facility] [place] [address] Marek Bonilla MD [address] [facility] [address], [place] [address] documented as of this encounter Visit Diagnoses Diagnosis Aortic valve stenosis, etiology of cardiac valve disease unspecified Coronary artery disease, unspecified vessel or lesion type, unspecified whether angina present, unspecified whether agdaagux or transplanted heart documented in this encounter Care Teams Insert Molding Operator Relationship Specialty Start Date End Date Magdalena Acosta MD [address] [place] [address] PCP - General Family Medicine 02/05/23 documented as of this encounter
--- OUTSIDE RECORDS SUMMARY | 2024-03-02 13:55 | XMS_ITS | Encounter Summary ---
Author Organization [facility] Address [address] [place] [address] Care Team Providers Care Senior Sql Database Developer Name Role Phone Ashley Chavez Primary Care Provider Encounter Details Date Type Department Care Team (Late st Contact Info) Description 01/07/2023 Lab Requisition [facility] Pathology & Laboratory Medicine - [address] [address] Outr Resulting Lab, Provider Social History Tobacco [...] 56.2 55.8 - 66.1 % 01/08/2023 11:28 [facility] Albumin g/dL 3.9 3.6 - 5.2 g/dL 01/08/2023 11:28 [facility] Alpha-1 % 5.1(H) 2.9 - 4.9 % 01/08/2023 11:28 [facility] Alpha-1 g/dL 0.40 0.15 - 0.40 g/dL 01/08/2023 11:28 [facility] Alpha-2 % 7.0(L) 7.1 - 11.8 % 01/08/2023 11:28 [facility] Alpha-2 g/dL 0.50 0.50 - 1.00 g/dL 01/08/2023 11:28 [facility] Beta % 12.7 8.4 - 13.1 % 01/08/2023 11:28 [facility] Beta g/dL 0.90 0.60 - 1.20 g/dL 01/08/2023 11:28 [facility] Gamma % 19.0(H) 11.1 - 18.8 % 01/08/2023 11:28 [facility] Gamma g/dL 1.30 0.60 - 1.60 g/dL 01/08/2023 11:28 [facility] SPEP Comment No apparent monoclonal protein seen on serum electrophoresis 01/08/2023 11:28 [facility] Comment:See scanned/suppleme ntary report. Total Protein 6.9 6.3 - 8.2 g/dL 01/08/2023 11:28 [facility] Blood VENOUS BLOOD / Unknown 01/06/2023 14:40 EDT 01/07/2023 17:37 EDT Provider Outr Resulting Lab CHEMISTRY & BLOOD GAS ORDERABLES Performing Organization Address City/State/[facility] Co de Phone Number [facility] [address] [place] [address] * PROTEIN, TOTAL (01/06/2023 14:40 EDT) Blood VENOUS BLOOD / Unknown 01/06/2023 14:40 EDT 01/07/2023 17:37 EDT Provider Outr Resulting Lab CHEMISTRY & BLOOD GAS ORDERABLES Performing Organization Address [facility] Co de Phone Number [facility] [address] [place] [address] * (ABNORMAL) EXTRACTABLE NUCLEAR ANTIGEN PANEL (01/06/2023 14:40 EDT) SSA Antibody 1.3 <20.0 Units 01/08/2023 15:42 EDT [facility] Comment: ? Negative: <20.0 [...] Antibody 1.5 <20.0 Units 01/08/2023 15:42 EDT [facility] Comment: ? Negative: <20.0 Units ? Weak Positive: 20.0 - 39.9 Units ? Moderate Positive: 40.0 - 80.0 Units ? Strong Positive: >80.0 Units Results were obtained with the INOVA QUANTA Lite SS-B DOOM. ??SS-B values obtained with different manufacturers' assay methods may not be used interchangeably. ??The magnitude of the reported IgG levels cannot be correlated to an endpoint titer. SM (Moreno) Antibody 15.3 <20.0 Units 01/08/2023 15:42 EDT [facility] Comment: ? Negative: <20.0 Units ? Weak Positive: 20.0 - 39.9 Units ? Moderate Positive: 40.0 - 80.0 Units ? Strong Positive: >80.0 Units Results were obtained with the LocalGuiding[employer] QUANTA Lite Sm DOMO. ??Sm values obtained with different manufacturers' assay methods may not be used interchangeably. ??The magnitude of the reported IgG levels cannot be correlated to an endpoint titer. MULTICUT LINE OPERATOR Antibody 149.1(H) <20.0 Units 01/08/2023 15:42 EDT [facility] Comment: ? Negative: <20.0 Units ? Weak Positive: 20.0 - 39.9 Units ? Moderate Positive: 40.0 - 80.0 Units ? Strong Positive: >80.0 Units Results were obtained with the Cardium Therapeuticsva Quanta Lite MULTICUT LINE OPERATOR DOMO. MULTICUT LINE OPERATOR values obtained with different policy director's assay methods may not be used interchangeaby. ??The magnitude of the reported IgG levels cannot be be correlated to an endpoint titer. A positive result in the Quanta Lite MULTICUT LINE OPERATOR DOMO indicates the presence of antibodies reactive with the MULTICUT LINE OPERATOR/Sm complex but cannot distinguish between anti-Sm and anti-MULTICUT LINE OPERATOR activity. Blood VENOUS BLOOD / Unknown 01/06/2023 14:40 EDT 01/07/2023 17:37 EDT Provider Outr Resulting Lab IMMUNOLOGY A ND SEROLOGY ORDERABLES [facility] [address] [place] [address] * (ABNORMAL) ANTI NUCLEAR AB (FRANCISCO), IFA (01/06/2023 14:40 EDT) FRANCISCO Interpretation Positive(A) Negative 01/08/2023 15:22 EDT [facility] Comment: Result is equal to or greater than 1:5120. For titers greater than or equal to 1:160 (except the centromere, nucleolar, and dense fine speckled patterns) it is recommended that specific, follow-up autoantibody testing (such as for dsDNA and Extractable Nuclear Antigens) be performed on all diffuse and/or speckled patterns. FRANCISCO Titer and Pattern 1 1:5120 Speckled 01/08/2023 15:22 EDT [facility] Blood VENOUS BLOOD / Unknown 01/06/2023 14:40 EDT 01/07/2023 17:37 EDT Narrative [facility] - 01/08/2023 15:22 EDT Results were obtained with the INOVA NOVA Lite HEp-2 FRANCISCO Kit by indirect immunofluorescence. Provider Outr Resulting Lab IMMUNOLOGY A ND SEROLOGY ORDERABLES Performing Organization Address City/State/[facility] Co de Phone Number [facility] [address] [place] [address] documented in this encounter Visit Diagnoses Not on filedocumented in this encounter Care Teams Senior Sql Database Developer Relationship Specialty Start Date End Date Ashley Chavez ARNP [address] [place] [address] PCP - General 07/11/10 documented as of this encounter
--- OUTSIDE RECORDS SUMMARY | 2024-03-02 13:55 | XMS_ITS | Encounter Summary ---
Author Organization [facility] Address [address] [place] [address] Care Team Providers Care Foundry Superintendant Name Role Phone Unavailable Primary Care Provider Unavailabl e Encounter Details Date Type Department Care Team (Late st Contact Info) Description 04/20/2005 Results Only [facility] - [facility] [address] [place] [address] Ziggy Valiente MD [address] [place] [id number] Social History Tobacco Use Types Packs/Day Years [...] ? 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 Accession #: ? [id number] ? : ? 1955 (Age: 49) ??F [...] correlation with endoscopic appearance is recommended. (Dr. Chino)/[facility] Document reviewed and electronically signed [...] is entirely submitted in one cassette. ??(Arabella Santos)/[facility] End of Report PAUL ARELLANO 04/20/2005 04/21/2005 15: 04 EDT Ziggy Valiente MD PATHOLOGY ORDERABLES PAUL ARELLANO [address] [place] [address] documented in this encounter Visit Diagnoses Not on filedocumented in this encounter
--- OUTSIDE RECORDS SUMMARY | 2024-03-02 13:55 | XMS_ITS | Encounter Summary ---
Author Organization [facility] Address [address] [place] [address] Care Team Providers Care Electric Wheelchair Repairer Name Role Phone Ashley Chavez Primary Care Provider [phone] Encounter Details Date Type Department Care Team (Late st Contact Info) Description 10/30/2022 Lab Requisition [facility] Pathology & Laboratory Medicine - [address] [address] Outr Resulting Lab, Provider Social History Tobacco [...] Stranded) <12.3 <30.0 IU/mL 11/03/2022 13:08 EDT [facility] Comment: ? Negative: ??<30.0 IU/mL ? Borderline Positive: ??30.0 - 75.0 IU/mL ? Positive: ??>75.0 IU/mL Results were obtained with the INOVA QUANTA Lite dsDNA SC DOMO assay on the Sentri DSX. Blood VENOUS BLOOD / Unknown 10/29/2022 14:00 EDT 10/30/2022 19:27 EDT Provider Outr Resulting Lab IMMUNOLOGY A ND SEROLOGY ORDERABLES Performing Organization Address [facility] de Phone Number [facility] [address] [place] [address] * SM (MORENO) ANTIBODY (10/29/2022 14:00 EDT) [facility] SM (Moreno) Antibody 18.5 <20.0 Units 11/03/2022 14:26 EDT [facility] Comment: ? Negative: <20.0 Units [...] SEROLOGY ORDERABLES Performing Organization Address [facility] de Phone Number [facility] [address] [place] [address] documented in this encounter Visit Diagnoses Not on filedocumented in this encounter Care Teams Electric Wheelchair Repairer Relationship Specialty Start Date End Date Ashley Chavez ARNP [address] [place] [address] PCP - General 07/11/10 documented as of this encounter
--- OUTSIDE RECORDS SUMMARY | 2024-03-02 13:55 | XMS_ITS | Encounter Summary ---
Author Organization [facility] Address [address] [place] [address] Care Team Providers Care Lockstitch Coat Joiner Name Role Phone Unavailable Primary Care Provider Unavailabl e Encounter Details Date Type Department Care Team (Late st Contact Info) Description 03/24/2007 Results Only [facility] Non-Invasive Cardiology - [facility] [address] [place], [place] [address] Ashley Chavez ARNP [address] [place] [address] Social History Tobacco Use Types Packs/Day Years [...] ? 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 Accession #: ? [id number] : ? 1955 (Age: 51) ??F ?Collect Date: ? 03/24/2007 Location: ? [facility] ? Receive Date: ? 03/28/2007 Provider: ?ASHLEY THOMAS Copy to: ? Specimen/Source: ?ThinPrep Pap Test, Endocervix, processed on [employer] ThinPrep Imaging System, with manual evaluation Last [...] Ashley THOMAS PATHOLOGY ORDERABLES PAUL ARELLANO [address] [place] [address] documented in this encounter Visit Diagnoses Not on filedocumented in this encounter
--- OUTSIDE RECORDS SUMMARY | 2024-03-02 13:55 | XMS_ITS | Clinical Summary ---
Author Organization [facility] Address [address] [place] [address] Care Team Providers Care Hay Chopper Name Role Phone Ashley Chavez Primary Care Provider [phone] Social History Tobacco Use Types Packs/Day Years [...] COVID-19 Vaccine (2022-24 season) 2023 Care Teams Hay Chopper Relationship Specialty Start Date End Date Ashley Chavez ARNP [address] [place] [address] PCP - General 07/11/10
--- OUTSIDE RECORDS SUMMARY | 2024-03-02 13:55 | XMS_ITS | Encounter Summary ---
Author Organization [facility] Address [address] [place] [address] Care Team Providers Care Wreath Machine Operator Name Role Phone Unavailable Primary Care Provider Unavailabl e Encounter Details Date Type Department Care Team (Late st Contact Info) Description 03/24/2007 11:06 EDT - 03/24/2007 11:59 EDT Hospital Encounter [facility] - Other [address] [place] [address] Ashley Chavez ARNP [address] [place] [address] Discharge Disposition: Home or Self Care Social [...]
--- OUTSIDE RECORDS SUMMARY | 2024-03-02 13:55 | XMS_ITS | Encounter Summary ---
Author Organization [facility] Address [facility] [place] [address] Care Team Providers Care Eap Specialist Name Role Phone Magdalena Acosta MD Primary Care Provider [phone] Encounter Details Date Type Department Care Team [...] AM EST Office [place] [address] Magdalena Peralta MD [facility] [place] [address] 03/01/2025 4:15 PM EDT Office Visit Dermatology at [place] [address] [facility] [place] [address] Marek Bonilla MD [address] [place] [address] RD, [place] [address] documented as of this encounter Visit Diagnoses Not on filedocumented in this encounter Care Teams Eap Specialist Relationship Specialty Start Date End Date Magdalena Acosta MD [address] [place] [address] PCP - General Family Medicine 02/05/23 documented as of this encounter
--- OUTSIDE RECORDS SUMMARY | 2024-03-02 13:55 | XMS_ITS | Encounter Summary ---
Author Organization [facility] Address [facility] [place] [address] Care Team Providers Care Membership Administrator Name Role Phone Magdalena Acosta MD Primary Care Provider [phone] Encounter Details Date Type Department Care Team [...] 11:30 AM EST Office [place] [address] Magdalena Peralta MD [facility] [place] [address] 03/01/2025 4:15 PM EDT Office Visit Dermatology at [place] [address] [facility] [place] [address] Marek Bonilla MD [address] [place] [address] RD, [place] [address] documented as of this encounter Visit Diagnoses Not on filedocumented in this encounter Care Teams Membership Administrator Relationship Specialty Start Date End Date Magdalena Acosta MD [address] [place] [address] PCP - General Family Medicine 02/05/23 documented as of this encounter
--- OUTSIDE RECORDS SUMMARY | 2024-03-02 13:55 | XMS_ITS | Encounter Summary ---
Author Organization [facility] Address [address] [place] [address] Care Team Providers Care Vocational Rehabilitation Administrator Name Role Phone sAhley Chavez Primary Care Provider [phone] Encounter Details Date Type Department Care Team (Late st Contact Info) Description 05/12/2022 Lab Requisition [facility] Pathology & Laboratory Medicine - [address] [address] Outr Resulting Lab, Provider Social History Tobacco [...] 14:32 EDT) Hold Hold 05/12/2022 22:46 EDT [facility] Blood VENOUS BLOOD / Unknown 05/12/2022 14:32 EDT 05/12/2022 21:40 EDT Provider Outr Resulting Lab LAB INFO SER VICE AND SUPPORT & PHONE RESULT Performing Organization Address [facility]/ZIP Co de Phone Number [facility] [address] [place] [address] * (ABNORMAL) HOMOCYSTEINE (05/12/2022 14:32 EDT) Homocysteine 14.7(H) 5.0 - 13.9 umol/L 05/13/2022 9:05 EDT [facility] Comment:Results may be false ly elevated if sample is not collected on ice or is not removed from cells within 1 hour of collection. Blood VENOUS BLOOD / Unknown 05/12/2022 14:32 EDT 05/12/2022 21:40 EDT Narrative [facility] - 05/13/2022 9:05 EDT Reference [...] & BLOOD GAS ORDERABLES Performing Organization Address [facility] Co de Phone Number [facility] [address] [place] [address] * HAPTOGLOBIN (05/12/2022 14:32 EDT) Pathologist [facility] Haptoglobin 138 32 - 197 mg/dL 05/13/2022 9:55 EDT [facility] Blood VENOUS BLOOD / Unknown 05/12/2022 14:32 EDT 05/12/2022 21:36 EDT Provider Outr Resulting Lab CHEMISTRY & BLOOD GAS ORDERABLES Performing Organization Address [facility] Co de Phone Number [facility] [address] [place] [address] * (ABNORMAL) ANTI NUCLEAR AB (FRANCISCO), IFA (05/12/2022 14:32 EDT) FRANCISCO Interpretation Positive(A) Negative 05/13/2022 14:44 EDT [facility] Comment: Result is equal to or greater than 1:5120. For titers greater than or equal to 1:160 (except the centromere, nucleolar, and dense fine speckled patterns) it is recommended that specific, follow-up autoantibody testing (such as for dsDNA and Extractable Nuclear Antigens) be performed on all diffuse and/or speckled patterns. FRANCISCO Titer and Pattern 1 1:5120 Speckled 05/13/2022 14:44 EDT [facility] Blood VENOUS BLOOD / Unknown 05/12/2022 14:32 EDT 05/12/2022 21:36 EDT Narrative [facility] - 05/13/2022 14:44 EDT Results were obtained with the INOVA NOVA Lite HEp-2 FRANCISCO Kit by indirect immunofluorescence. Provider Outr Resulting Lab IMMUNOLOGY A ND SEROLOGY ORDERABLES [facility] [address] [place] [address] documented in this encounter Visit Diagnoses Not on filedocumented in this encounter Care Teams Vocational Rehabilitation Administrator Relationship Specialty Start Date End Date Ashley Chavez ARNP [address] [place] [address] PCP - General 07/11/10 documented as of this encounter
--- OUTSIDE RECORDS SUMMARY | 2024-03-02 13:55 | XMS_ITS | Encounter Summary ---
Author Organization [facility] Address [address] [place] [address] Care Team Providers Care Investigation Division Sergeant Name Role Phone Ashley Chavez Primary Care Provider [phone] Encounter Details Date Type Department Care Team (Late st Contact Info) Description 04/29/2022 Lab Requisition [facility] Pathology & Laboratory Medicine - [address] [address] Outr Resulting Lab, Provider Social History Tobacco [...] Antibody 1.6 <20.0 Units 04/30/2022 12:23 EDT [facility] Comment: ? Negative: <20.0 Units [...] A ND SEROLOGY ORDERABLES Performing Organization Address [facility] de Phone Number [facility] [address] [place] [address] * SSA ANTIBODIES BY DOMO (04/29/2022 7:51 EDT) SSA Antibody 1.5 <20.0 Units 04/30/2022 12:22 EDT [facility] Comment: ? Negative: <20.0 Units [...] A ND SEROLOGY ORDERABLES Performing Organization Address [facility] de Phone Number [facility] [address] [place] [address] documented in this encounter Visit Diagnoses Not on filedocumented in this encounter Care Teams Investigation Division Sergeant Relationship Specialty Start Date End Date Ashley Chavez ARNP [address] [place] [address] PCP - General 07/11/10 documented as of this encounter
--- OUTSIDE RECORDS SUMMARY | 2024-03-02 13:55 | XMS_ITS | Encounter Summary ---
Author Organization [facility] Address [address] [place] [address] Care Team Providers Care Feed Mill Operator Name Role Phone Unavailable Primary Care Provider Unavailabl e Encounter Details Date Type Department Care Team (Late st Contact Info) Description 06/29/[address] [facility] - Maple conversion [address] [place] [address] Sánchez Acevedo MD [address] [place] [address] Social History Tobacco Use Types Packs/Day Years [...] ? 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 Accession #: ? [id number] ? : ? 1955 (Age: 51) ??F [...] covered by a smooth white serosa. ??Three digital media representative sections of the gallbladder are submitted in one cassette. ??(Sriram Elias/[facility] End of Report [facility] 06/29/2007 06/29/2007 21: 23 EST Sánchez Acevedo MD PATHOLOGY ORDERABLE S [facility] [address] [place] [address] documented in this encounter Visit Diagnoses Not on filedocumented in this encounter
--- OUTSIDE RECORDS SUMMARY | 2024-03-02 13:55 | XMS_ITS | Encounter Summary ---
Author Organization [facility] Address [address] [place] [address] Care Team Providers Care Technical Service Specialist Name Role Phone Ashley Chavez Primary Care Provider [phone] Encounter Details Date Type Department Care Team (Late st Contact Info) Description 12/17/2021 Lab Requisition [facility] Pathology & Laboratory Medicine - [address] [phone] Outr Resulting Lab, Provider Social History Tobacco [...] Lyme Ab Negative Negative 12/18/2021 10:[address] [facility] Blood VENOUS BLOOD / Unknown 12/17/2021 13:30 EDT 12/17/2021 21:32 EDT Provider Outr Resulting Lab IMMUNOLOGY A ND SEROLOGY ORDERABLES Performing Organization Address [facility] Co de Phone Number [facility] [address] [place] [address] * (ABNORMAL) ANTI NUCLEAR AB (FRANCISCO), IFA (12/17/2021 13:30 EDT) FRANCISCO Interpretation Positive(A) Negative 12/18/2021 16:[address] [facility] Comment: For titers greater than [...] Pattern 1 1:1280 Speckled 12/18/2021 16:[address] [facility] Blood VENOUS BLOOD / Unknown 12/17/2021 13:30 EDT 12/17/2021 21:32 EDT Narrative [facility] - 12/18/2021 16:06 EDT Results were obtained with the INOVA NOVA Lite HEp-2 FRANCISCO Kit by indirect immunofluorescence. Provider Outr Resulting Lab IMMUNOLOGY A ND SEROLOGY ORDERABLES Performing Organization Address [facility] Co de Phone Number [facility] [address] [place] [address] documented in this encounter Visit Diagnoses Not on filedocumented in this encounter Care Teams Technical Service Specialist Relationship Specialty Start Date End Date Ashley Chavez ARNP [address] [place] [address] PCP - General 07/11/10 documented as of this encounter
--- OUTSIDE RECORDS SUMMARY | 2024-03-02 13:55 | XMS_ITS | Encounter Summary ---
Author Organization [facility] Address [address] [place] [address] Care Team Providers Care Insight Leader Name Role Phone Scott Ashley WILLIAM Primary Care Provider [phone] Encounter Details Date Type Department Care Team (Late st Contact Info) Description 05/12/[address] [facility] [phone] Nadira Gregorio MD [address] [place] [phone] Social History Tobacco Use Types Packs/Day [...] ? 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 Accession #: ? [id number] ? : ? 1955 (Age: 63) ??F ? Collect Date: ? 05/12/2019 ? Location: ? [facility] ? Receive Date: ? 05/12/2019 ? Provider: NADIRA GREGORIO MD Copy to: WINTER HANKINS DIRECTOR VALIDATION ? Final Pathologic Diagnosis: COLON, CECUM, POLYP, [...] (ASCP) 05/12/2019 6:08 PM End of Report [facility] 05/12/2019 16:0 3 EDT 05/12/2019 16:03 EDT Nadira Gregorio MD PATHOLOGY ORDERABLES [facility] [address] [place] [address] documented in this encounter Visit Diagnoses Not on filedocumented in this encounter Care Teams Insight Leader Relationship Specialty Start Date End Date Ashley Chavez ARNP [address] [place] [address] PCP - General 07/11/10 documented as of this encounter
--- OUTSIDE RECORDS SUMMARY | 2024-03-02 13:55 | XMS_ITS | Encounter Summary ---
Author Organization [facility] Address [address] [place] [address] Care Team Providers Care Housekeeping Department Worker Name Role Phone Scott, Ashley WILLIAM Primary Care Provider [phone] Encounter Details Date Type Department Care Team (Late st Contact Info) Description 12/23/2016 Results Only [facility] [phone] Deborah Quiroga, DONOR SERVICES MANAGER [address] [place] [phone] Social History Tobacco Use Types Packs/Day Years [...] ? 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 Accession #: ? [id number] ? : ? 1955 (Age: 61) ??F ?Collect Date: ? 12/23/2016 ? Location: ? [facility] ? Receive Date: ? 12/25/2016 ? Provider: DEBORAH QUIROGA AS400 ANALYST Copy to: ? Final Report SPECIMEN ADEQUACY ? Satisfactory for Evaluation - transformation zone component present GENERAL CATEGORIZATION ? Negative for Intraepithelial Lesion or Malignancy ?? Last Menstrual Period: years Specimen/Source: ??Pap Test, Cervix, ThinPrep Imaging System with manual evaluation Document reviewed and electronically signed by: ? Monica Cason [facility](ASCP) ? Report ??Date: 01/06/2017 09:11 HPV with Pap Test ? Date Ordered: ? 01/06/2017 ? Status: ?? Signed Out ?Date Complete: ? 01/07/2017 ? By: ??System Interface ? Date Reported: ? 01/07/2017 ? Interpretation RESULT: Negative for HPV. No E6 or E7 mRNA is detected from HPV types 16,18,31,33,35, 39,45,51,52,56,58, 59,66, and 68 by senior medical transcriptionist mediated amplification. Comments Document reviewed and electronically signed by: ? System Interface ? Report date: 01/07/2017 By the signature above, the attending physician certifies that he/she has personally conducted a gross and/or microscopic examination of the described specimens and rendered or confirmed the above diagnosis. End of Report [facility] 12/23/2016 12/25/2016 Deborah Quiroga DONOR SERVICES MANAGER PATHOLOGY ORDERABLES [facility] [address] [place] [address] documented in this encounter Visit Diagnoses Not on filedocumented in this encounter Care Teams Housekeeping Department Worker Relationship Specialty Start Date End Date Ashley Chavez ARNP [address] [place] [address] PCP - General 07/11/10 documented as of this encounter
--- OUTSIDE RECORDS SUMMARY | 2024-03-02 13:55 | XMS_ITS | Encounter Summary ---
[place] [address] Care Team Providers Care Systems Engineer Name Role Phone Magdalena Acosta MD Primary Care Provider [phone] Reason for Visit * Reason Onset Date Comments Pre Procedure Call 03/01/2024 DAPT hold for EGD and colo? Encounter Details Date Type Department Care Team (Late st Contact Info) Description 03/01/2024 Telephone Cardiology at [address] [phone] Cynthia Monsalve RN Pre Procedure Call (DAPT hold for EGD and colo?) Social History Tobacco Use Types Packs/Day Years Used Date Smoking Tobacco: Never Smokeless Tobacco: Never Alcohol Use Standard Drinks/Week Comments No 0 (1 standard drink = 0.6 oz pur e alcohol) none [facility] Inpatient Questions Answer Date Recorded Does [...] Miscellaneous Notes * Telephone Encounter - Cynthia Monsalve RN - 03/01/2024 2:09 PM EDT Nurse Martin from [facility] called, requesting a hold on ASA and/or Plavix for the patient's anticipated EGD and colonoscopy. -Cynthia Monsalve RN documented in this encounter Plan of Treatment Upcoming Encounters Date Type Department Care Team (Late st Contact Info) Description 06/05/2024 11:30 AM EST Office [place] [phone] Magdalena Peralta MD [facility] [place] [address] 03/01/2025 4:15 PM EDT Office Visit Dermatology at [place] [address] [place] [address] Marek Bonilla MD [address], [place] A DERMATOLOGY [place], [place] [phone] documented as of this encounter Visit Diagnoses Not on filedocumented in this encounter Care Teams Systems Engineer Relationship Specialty Start Date End Date Magdalena Acosta MD [address] [place] [address] PCP - General Family Medicine 02/05/23 documented as of this encounter
--- OUTSIDE RECORDS SUMMARY | 2024-03-02 13:55 | XMS_ITS | Encounter Summary ---
Author Organization [facility] Address [address] [place] [address] Care Team Providers Care Ham Sawyer Name Role Phone Ashley Chavez Primary Care Provider [phone] Encounter Details Date Type Department Care Team (Latest Contact Info) Description 05/12/2019 13:18 EDT - 05/12/2019 23:59 EDT Hospital Encounter [address] [address] Unknown, Provider, Discharge Disposition: Home or Self Care Social History Tobacco Use Types Packs/Day Years Used Date Smoking Tobacco: Never Assessed Sex and Gender Information Value Date Recorded Sex Assigned at Not on file Gender Identity Not on file Sexual Orientation Not on file documented as of this encounter Discharge Disposition Disposition Code Departure Means Destination Home or Self Group Home documented in this encounter Plan of Treatment Not on file documented as of this encounter Visit Diagnoses Not on filedocumented in this encounter Care Teams Ham Sawyer Relationship Specialty Start Date End Date Ashley Chavez ARNP [address] [place] [address] PCP - General 07/11/10 documented as of this encounter
--- OUTSIDE RECORDS SUMMARY | 2024-03-02 13:55 | XMS_ITS | Clinical Summary ---
Author Organization [facility] Address [facility] [place] [address] Care Team Providers Care Cardiac/Vascular Sonographer Name Role Phone Magdalena Acosta MD Primary Care Provider [phone] Allergies No known active allergies Medications Medication [...] fraction 05/08/2023 Mild coronary artery disease by [facility] 11/09/2022 Heart failure with reduced e [...] Encounters Date Type Department Care Team Description 03/01/2024 Telephone Cardiology at [address] [phone] Cynthia Monsalve RN Pre Procedure Call (DAPT hold for EGD and colo?) 02/22/2024 4:15 PM EDT Office Visit Dermatology at [address] [address] Marek Bonilla MD Seborrheic keratosis; Rosacea; Nevus 02/22/2024 Travel 12/16/2023 Orders Only Cardiology at [address] [phone] Antelmo Sharma MD S/P TAVR (transcatheter aortic valve replacement) 12/02/2023 11:15 AM EDT Office Visit Rheumatology at [place] [phone] Magdalena Peralta MD Mixed connective tissue disease [...] e alcohol) none [facility] Inpatient Questions Answer Date Recorded Does Anyone [...] 11:30 AM EST Office [place] [address] Magdalena Peralta MD [facility] [place] [address] 03/01/2025 4:15 PM EDT Office Visit Dermatology at [place] [address] [place] [address] Marek Bonilla MD [address], [place] [address] Health Maintenance Due Date Last Done Comments [...] 06/05/2036 06/05/2021 Medical Devices Implanted Type Area Blood Donor Recruiter Device Identifier Shelf Expiration Date Model / Serial / Lot Valve,Aor,Pericar d,Magna,25mm ([id number]) - [id number] Implanted:Qty: 1 on 09/21/2016 by Alirio Esparza MD at [facility] IMPLANTS N/A: Heart DO NOT USE [employer] - [id number] 06/02/2020 [id number] / / [id number] Cable,Blnt,Ss,38i n ([id number]) - [id number] Implanted:Qty: 4 on 09/21/2016 by Alirio Esparza MD at [facility] IMPLANTS N/A: Chest [employer] - [id number] 04/29/2021 [id number] / / [id number] Patch,Cav,Pericar d,2x5cm ([id number]) (Autoreq) - [id number] Implanted:Qty: 1 on 09/21/2016 by Alirio Esparza MD at [facility] IMPLANTS N/A: Heart DO NOT USE [employer] - [id number] 04/21/2018 [id number] / / [id number] Tavr-05/12/2023 Implanted:Qty: 1 on 05/12/2023 by Antelmo Sharma MD Other Heart [employer]CIENCES 9Flava - JAIME LI [id number] / [id number] / Description:JAIME LIFESCIE NCES ABBY 3 ULTRA RESILIA TRANSCATHETER HEART VALVE Procedures Procedure Name Priority Date/Time Associated Diagnosis Comments LAB SCAN 02/24/2024 12:00 AM EDT COMPREHENSIVE METABOLIC PANEL (NON-FASTING) Routine 07/08/2023 11:56 AM EST S/P TAVR (transcatheter aortic valve replacement) DXA CENTRAL SPINE, HIP, AND/OR WHOLE BODY (GENERIC) Routine 06/05/2021 11:58 AM EDT MAMMO SCREENING CAD BILATERAL Routine 06/05/2021 11:42 AM EDT from Last 3 Months or Most Recently Relevant to Health Maintenance Results * Scan Doc: Lab (02/24/2024 12:00 AM EDT) Narrative 02/24/2024 12:00 AM EDT Ordered by an unspecified provider. Scanning Provider MEDIA MGR SCAN EXT O RDR/RSLT * (ABNORMAL) Comprehensive metabolic panel (non-fasting) (07/08/2023 [...] Lab Alirio Esparza MD CHEMISTRY ORDERABLE S [facility] [place] [address] * DXA Central Spine, Hip, and/or Whole Body (Generic) (06/05/2021 11:58 AM EDT) PT CLASS O RAD ADMITDTTM RAD PT RAD INFO [id number]^E VERETT^DEBORAH ^E RAD EXAM DESC XDXAC^DEXA SCAN [...] who have questions please contact the health child day care center worker that requested your imaging first. ? Narrative [...] patients who have questions please contactthe health child day care center worker that requested your imaging first. Deborah Quiroga FLIGHT ATTENDANT/INFLIGHT MANAGER IMG DEXA ORDERABLES * Mammo Screening Cad Bilateral (06/05/2021 11:42 AM EDT) PT CLASS O RAD ADMITDTTM DH RAD PT RAD INFO [id number]^EV ERETT^DEBORAH^E RAD EXAM DESC MADDSC^SCREEN MAMMO BL [...] who have questions please contact the health child day care center worker that requested your imaging first. ? Electronically signed by: Rocael Villatoro MD, [facility] ([phone]), at 06/05/2021 1:27 PM Narrative 06/05/2021 1:27 [...] patients who have questions please contactthe health child day care center worker that requested your imaging first. Deborah LLAMAS MAMMO ORDERABLE S from Last 3 Months [...] capacity to make decision: Yes Care Teams Cardiac/Vascular Sonographer Relationship Specialty Start Date End Date Magdalena Acosta MD [address] [place] [address] PCP - General Family Medicine 02/05/23
--- OUTSIDE RECORDS SUMMARY | 2024-03-02 13:55 | XMS_ITS | Encounter Summary ---
Author Organization [facility] Address [facility] [place] [address] Care Team Providers Care Telecommunications Technician Name Role Phone Magdalena Acosta MD Primary Care Provider [phone] Encounter Details Date Type Department Care Team [...] 11:30 AM EST Office [place] [address] Magdalena Peralta MD [facility] [place] [address] 03/01/2025 4:15 PM EDT Office Visit Dermatology at [place] [address] [facility] [place] [phone] Marek Bonilla MD [address] [place] [address] RD, [place] [address] documented as of this encounter Visit Diagnoses Not on filedocumented in this encounter Care Teams Telecommunications Technician Relationship Specialty Start Date End Date Magdalena Acosta MD [address] [place] [address] PCP - General Family Medicine 02/05/23 documented as of this encounter
--- OUTSIDE RECORDS SUMMARY | 2024-03-02 13:55 | XMS_ITS | Encounter Summary ---
[place] [address] Care Team Providers Care Pharmacy Stock Clerk Name Role Phone Magdalena Acosta MD Primary Care Provider [phone] Reason for Visit * Reason Comments Annual Exam Encounter Details Date Type Department Care Team (Late st Contact Info) Description 02/22/2024 4:15 PM EDT Office Visit Dermatology at [address] [phone] Marek Bonilla MD [address] [facility] A DERMATOLOGY [place], [place] [phone] Seborrheic keratosis; Rosacea; Nevus Social History Tobacco [...] cutaneous and ocular 3. Previously told by roofer that she had corneal tears from her [...] 11:30 AM EST Office [place] [address] Magdalena Peralta MD [facility] [place] [address] 03/01/2025 4:15 PM EDT Office Visit Dermatology at [place] [address] [facility] [phone] Marek Bonilla MD [address] [facility], [place] [address] documented as of this encounter Visit Diagnoses Diagnosis Seborrheic keratosis Other seborrheic keratosis Rosacea Nevus Benign neoplasm of skin, site unspecified documented in this encounter Care Teams Pharmacy Stock Clerk Relationship Specialty Start Date End Date Magdalena Acosta MD [address] [place] [address] PCP - General Family Medicine 02/05/23 documented as of this encounter
--- OUTSIDE RECORDS SUMMARY | 2024-03-02 13:55 | XMS_ITS | Encounter Summary ---
Author Organization [facility] Address [address] [place] [address] Care Team Providers Care Assembler 1St Shift Name Role Phone Ashley Chavez Primary Care Provider [phone] Encounter Details Date Type Department Care Team (Late st Contact Info) Description 06/23/2016 Results Only [facility] [phone] Matthew Acevedo, DO [address] [facility] TODD HAMILTON [address] [place] [address] Social History Tobacco Use Types Packs/Day [...] ? 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 Accession #: ? [id number] : ? 1955 (Age: 60) ??F ?Collect [...] ??400 ?? KARYOTYPE: 46,XX[25] End of Report [facility] 06/23/2016 06/24/2016 Matthew Acevedo DO PATHOLOGY ORDER JODIE [facility] [address] [place] [address] * FLOW CYTOMETRY (06/23/2016 0:00 EST) Pathology Report: FLOW CYTOMETRY REPORT Reports generated via electronic interface contain original data; however they are lacking the format of the original report. Caution should be taken when reading/interpreting unformatted reports. Name: ? 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 Accession #: ? [id number] : ? 1955 (Age: 60) ??F ?Collect Date: ? 06/23/2016 00:00 Location: ? [facility] ? Receive Date: ? 06/24/2016 08:00 Provider: ?MATTHEW ACEVEDO DO Copy to: ?WINTER HANKINS PLUG GROWER MARIO ALBERTO RAMOS MD ? FINAL IMMUNOPHENOTYPIC INTERPRETATION: ? Bone marrow, flow cytometric analysis: -No immunophenotypic evidence of a clonal cell population. ??See comment. ? COMMENT: The results of flow cytometry show no immunophenotypic evidence of involvement by a clonal lymphoproliferative or myeloproliferative disorder. ??Correlation of these findings with morphologic and clinical data is essential. ??Please refer to pathology report number [id number] for morphologic details. ? Document reviewed and [...] the Department of Pathology and Laboratory Medicine, [place] ??It has not been cleared or [...] clinical laboratory testing. End of Report ?? [facility] 06/23/2016 06/24/2016 8:0 0 EST Matthew Acevedo DO PATHOLOGY ORDER JODIE [facility] [address] [place] [address] * BONE MARROW/HEMPATH CONSULT (06/23/2016 0:00 EST) Pathology Report: BONE MARROW REPORT Reports generated via electronic interface contain original data; however they are lacking the format of the original report. Caution should be taken when reading/interpreting unformatted reports. Name: ? 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 Accession #: ? [id number] : ? 1955 (Age: 60) ??F ?Collect Date: ? 06/23/2016 Location: ? [facility] ? Receive Date: ? 06/24/2016 Provider: ? MATTHEW ACEVEDO DO Copy to: ?WINTER HANKINS PL[employer] GROWER MARIO ALBERTO RAMOS MD ? DIAGNOSIS: Peripheral [...] vascular disorders, medication effects, and/or nutritional deficiencies. Edll dysplastic features are not seen in enough [...] #1: Aggregate biopsy length: 8 mm with pig conveyor operator trabeculae of lamellar bone, cellular bone marrow, [...] SEE ABOVE DISCUSSION Lambda (polyclonal, Dako) ??(B1): Berkley (polyclonal, Dako) ??(B1): Biopsy (decalcified) #2: Aggregate biopsy length: 8 mm with pig conveyor operator trabeculae of lamellar bone, cellular bone marrow, [...] (M115, Leica) ??(B2): Lambda (polyclonal, Dako) ??(B2): Berkley (polyclonal, Dako) ??(B2): NOTE: ??One or more [...] performance characteristics have been determined by [facility]. ??The positive and negative controls [...] ? 1% Blasts ?1% Special Studies Cytogenetics ([id number]): Pending. Flow Cytometry ([id number]): No immunophenotypic evidence of a clonal cell population. ? End of Report [facility] 06/23/2016 06/24/2016 Matthew Acevedo DO PATHOLOGY ORDER JODIE [facility] [address] [place] [address] documented in this encounter Visit Diagnoses Not on filedocumented in this encounter Care Teams Assembler 1St Shift Relationship Specialty Start Date End Date Ashley Chavez ARNP [address] [place] [address] PCP - General 07/11/10 documented as of this encounter
--- OUTSIDE RECORDS SUMMARY | 2024-03-02 13:55 | XMS_ITS | Referral Summary ---
Author Organization [facility] Address [address] [place] [address] Care Team Providers Care Canvas Worker Name Role Phone Ashley Chavez Primary Care Provider [phone] Social History Tobacco Use Types Packs/Day Years Used Date Smoking Tobacco: Never Assessed Interpersonal Safety Answer Date Record ed Physically Hurt Never 03/03/2020 Verbally Threaten Not on file 03/03/2020 Sex and Gender Information Value Date Recorded Sex Assigned at Not on file Gender Identity Not on file Sexual Orientation Not on file Plan of Treatment Not on file Care Teams Canvas Worker Relationship Specialty Start Date End Date Ashley Chavez ARNP [address] [place] [address] PCP - General 07/11/10
--- OUTSIDE RECORDS SUMMARY | 2024-03-02 13:56 | XMS_ITS | Encounter Summary ---
Author Organization [facility] Address [facility] [place] [address] Care Team Providers Care Marine Steward Name Role Phone Magdalena Acosta MD Primary Care Provider [phone] Encounter Details Date Type Department Care Team [...] 11:30 AM EST Office [place] [address] Magdalena Peralta MD [facility] [place] [address] 03/01/2025 4:15 PM EDT Office Visit Dermatology at [place] [address] [facility] [place] [phone] Marek Bonilla MD [address] [place] [place] [address] RD, [place] [address] documented as of this encounter Visit Diagnoses Not on filedocumented in this encounter Care Teams Marine Steward Relationship Specialty Start Date End Date Magdalena Acosta MD [address] [place] [address] PCP - General Family Medicine 02/05/23 documented as of this encounter
--- OUTSIDE RECORDS SUMMARY | 2024-03-02 13:56 | XMS_ITS | Encounter Summary ---
Author Organization [facility] [place] [address] Care Team Providers Care Airworthiness Safety Inspector Name Role Phone Magdalena Acosta MD Primary Care Provider [phone] Reason for Referral * Diagnostic Test (Routine) - Closed Specialty Diagnoses / Procedures Referred By Contac t Referred To Contact Cardiology Diagnoses S/P TAVR (transcatheter aortic valve replacement) Procedures Echocardiogram Transthoracic Vinod Juárez PA [facility] [place] [address] [facility] [address] [facility] [place] [address] Referral ID Status Reason Start Date Expiration Date V isits Requested Visits Authorized [id number] Closed Specialty Service Requested 05/22/2023 05/21/2024 1 1 Reason for Visit * Diagnostic Test (Routine) - Closed Specialty Diagnoses / Procedures Referred By Contac t Referred To Contact Cardiology Diagnoses S/P TAVR (transcatheter aortic valve replacement) Procedures Echocardiogram Transthoracic Vinod Juárez PA [facility] [place] [address] [facility] [address] [facility] [place] [address] Referral ID Status Reason Start Date Expiration Date V isits Requested Visits Authorized [id number] Closed Specialty Service Requested 05/22/2023 05/21/2024 1 1 Encounter Details Date Type Department Care Team (Latest Contact Info) Description 07/08/2023 10:19 AM EST - 07/08/2023 11:59 PM EST Hospital Encounter Non-Invasive Cardiology [place] [address] Alirio Esparza MD [facility] [place] [address] S/P TAVR (transcatheter aortic valve replacement) Discharge [...] 11:30 AM EST Office Visit [place] [address] Magdalena Peralta MD [facility] [place] [address] 03/01/2025 4:15 PM EDT Office Visit Dermatology at [address] [place] [address] Marek Bonilla MD [address] [place] [address], [place] [address] documented as of this encounter Procedures Procedure [...] EST Narrative 07/08/2023 12:26 PM EST 1 [place] [address] ? Echocardiogram Report Name: LASHELL THACKEROUMARIZA Mejias ?Study Date: 07/08/2023 10:31 AMBP: 118/60 mmHg ? Patient Location: 4A : 1955 ? Height: 155 cm ? Account: [id number] Age: 67 yrs ? Weight: 74 kg Gender: Female ?BSA: 1.7 m2 Ordering Physician: ALIRIO ESPARZA Referring Physician: VINOD JUÁREZ Performed By: Felicia Norris RDCS Reason For Study: S/P TAVR Exam Location: [facility]. Interpretation Summary Left ventricular systolic [...] no significant change (post-procedure). Procedure Limited - 52791. Doppler - 76154. Color Doppler - 11135. Satisfactory quality. This study is limited because [...] Note Lee Kincaid MD - 07/08/2023 1 [place] [address] Echocardiogram Report Name: ANDREW ONESIMO M Study Date: 0:31 AMBP: 118/60 mmHg Patient Location: : 1955 Height: 155 cm Account: [id number] Age: 67 yrs Weight: 74 kg Gender: Female BSA: 1.7 m2 Ordering Physician: ALIRIO ESPARZA Referring Physician: JUÁREZ, VINOD W Performed By: Felicia Norris RDCS Reason For Study: S/P TAVR Exam Location: [facility]. Interpretation Summary Left ventricular systolic [...] is nosignificant change (post-procedure). Procedure Limited - 19310. Doppler - 49486. Color Doppler - 04892. Satisfactoryquality. This study is limited because of [...] replacement) documented in this encounter Care Teams Airworthiness Safety Inspector Relationship Specialty Start Date End Date Magdalena Acosta MD [address] [place] [address] PCP - General Family Medicine 02/05/23 documented as of this encounter
--- OUTSIDE RECORDS SUMMARY | 2024-03-02 13:56 | XMS_ITS | Encounter Summary ---
Author Organization Counts Include [facility] Address [facility] [place] [address] Care Team Providers Care Bereavement Coordinator Name Role Phone Magdalena Acosta MD [...] 11:30 AM EST Office [place] [address] Magdalena Peralta MD [facility] [place] [address] 03/01/2025 4:15 PM EDT Office Visit Dermatology at [place] [address] [facility] [place] [phone] Marek Bonilla MD [address] [place] [address] RD, [place] [address] documented as of this encounter Visit Diagnoses Not on filedocumented in this encounter Care Teams Bereavement Coordinator Relationship Specialty Start Date End Date Magdalena Acosta MD [address] [place] [address] PCP - General Family Medicine 02/05/23 documented as of this encounter
--- OUTSIDE RECORDS SUMMARY | 2024-03-02 13:56 | XMS_ITS | Encounter Summary ---
Author Organization [facility] Address [facility] [place] [address] Care Team Providers Care Solar Sales Representative And Assessor Name Role Phone Magdalena Acosta MD Primary Care Provider [phone] Reason for Visit * Reason Comments Coronary Artery Disease Hypertension Aortic Stenosis Encounter Details Date Type Department Care Team (Latest Contact Info) Description 07/20/2023 4:40 PM EST TH Visit (TeleHealth) Cardiology at [address] [address] Jay Maza PA [facility] [place] [address] HFrEF (heart failure with reduced ejection fraction); [...] Maza PA - 07/20/2023 4:40 PM EST [facility] [...] lieu of an in person office visit. Wire Rigger: Antelmo Sharma MD ([facility] Cards) Maria Luz Mejia MD ([facility] / [facility] cards) Problem List: : prior [...] fraction I35.0 Mild coronary artery disease by [facility] 11/09/2022 I25.10 Heart failure with reduced [...] stenosis (treated with 25mm surgical AVR in 2017)(now s/p valve in valve TAVR 23mm Sapien3), [...] in valve tavr was planned. The subsequent Ailrio TAVR high risk case was notable for coronary artery protection given low feivr-hq-iqseukaj distance. There was no obstruction post Valve deployment, but the stent could not be removed safely, so it was deployed. 4.0 mm x 30mm in left main. She was loaded on brilinta aka ticagrelor. Immediately post valve deployment, chest compressions to circulate central epinephrine which was administered given her hypotension, low LVEF, and low cardiac reserve. Next, the patient was transferred to [facility] for pressor and inotropic support. Pressors weaned overnight. Cardiac indices by thermodilution remained greater than 3 with continued Milrinone 0.125 mcg/kg/min. EKG the next day with NSR with stable IN/QRS intervals. Hemoglobin 7.8 today from 8.5, likely [...] arms and wrists. Successful right transfemoral TAVR Emjtx-cz-[id number] with a 23 mm Lai 3 THV. [...] leads Confirmed by MD Harshil, Haris Bell ([id number]) on 05/10/2023 8:11:46 AM Cardiac Cath 11/09/2022 [...] in chart review and direct patient contact. [id number] 0-5min 7859TQP8 6-10min 4019NLO6 11-15min 9119LUL6 16-20min x [id number] 21-30min 2264LDV7 31-40min 7064JGC7 40+ min Jay Maza PA-C Interventional Cardiology [facility] Pager [phone] documented in this encounter Plan of Treatment Upcoming Encounters Date Type Department Care Team (Late st Contact Info) Description 06/05/2024 11:30 AM EST Office Visit Rhe[place]ology [place] [address] Magdalena Peralta MD [facility] DR [place] [address] 03/01/2025 4:15 PM EDT Office Visit Dermatology at [place] [address] [facility] [place] [phone] Marek Bonilla MD [address] [facility], [place] [address] documented as of this encounter Visit Diagnoses Diagnosis HFrEF (heart failure with reduced ejection fraction) Hypertension, unspecified type Aortic valve stenosis, etiology of cardiac valve disease unspecified documented in this encounter Care Teams Solar Sales Representative And Assessor Relationship Specialty Start Date End Date Magdalena Acosta MD [address] [place] [address] PCP - General Family Medicine 02/05/23 documented as of this encounter
--- OUTSIDE RECORDS SUMMARY | 2024-03-02 13:56 | XMS_ITS | Encounter Summary ---
Author Organization [facility] [place] [address] Care Team Providers Care Organic Preparation Analyst Name Role Phone Magdalena Acosta MD Primary Care Provider [phone] Encounter Details Date Type Department Care Team (Late st Contact Info) Description 07/08/2023 10:15 AM EST Office Visit Cardiology at [address] [phone] Severe aortic stenosis Social History Tobacco Use [...] 11:30 AM EST Office [place] [address] Magdalena Peralta MD [facility] [place] [address] 03/01/2025 4:15 PM EDT Office Visit Dermatology at [place] [address] [facility] [address] [place] [address] Marek Bonilla MD [address], [place] [address] documented as of this encounter Procedures Procedure [...] (Bezet) 449 ms MUSE SYSTEM Calculated P Merrick 66 degrees MUSE SYSTEM Calculated R Merrick 60 degrees MUSE SYSTEM Calculated T Merrick 53 degrees MUSE SYSTEM INTERPRETATION Normal sinus rhythm Minimal voltage criteria for LVH, may be normal variant ( Sokolow-Orozco ) ST & T wave abnormality, consider lateral ischemia ??vs. repolarization abnormality from LVH Abnormal ECG When compared with ECG of 13-MAY-2023 09:22, Premature ventricular complexes are no longer Present Minimal criteria for Septal infarct are no longer Present Confirmed by Maxx Best ([id number]) on 07/09/2023 10:07:22 AM MUSE SYSTEM 07/08/2023 10:2 7 AM EST 07/09/2023 10:07 AM EST Brody Kaplan APRN ECG ORDERABLES [employer] SYSTEM documented in this encounter Visit Diagnoses Diagnosis Severe aortic stenosis Aortic valve disorders documented in this encounter Care Teams Organic Preparation Analyst Relationship Specialty Start Date End Date Magdalena Acosta MD [address] [place] [address] PCP - General Family Medicine 02/05/23 documented as of this encounter
--- OUTSIDE RECORDS SUMMARY | 2024-03-02 13:56 | XMS_ITS | Encounter Summary ---
Author Organization [facility] Address [facility] [place] [address] Care Team Providers Care Client Support Professional Name Role Phone Magdalena Acosta MD Primary Care Provider [phone] Encounter Details Date Type Department Care Team (Latest Contact Info) Description 07/08/2023 12:35 PM EST Laboratory Appointment Lab [address] [place] [address] S/P TAVR (transcatheter aortic valve [...] 11:30 AM EST [place] [address] Magdalena Peralta MD [facility] [place] [address] 03/01/2025 4:15 PM EDT Office Visit Dermatology at [place] [address] [place] [address] Marek Bonilla MD [address], [address] [place] [address] documented as of this encounter Procedures Procedure [...] 11:56 AM EST) Neutrophils % 73.2 % [facility] Neutr Abs (ANC) 3.40 1.70 - 6.10 x10(3)/mc L [facility] Lymphocytes % 16.1 % [facility] Lymphocytes Abs 0.8(L) 0.9 - 3.2 x10(3)/mc L [facility] Monocytes % 9.7 % [facility] Monocyte Abs 0.4 0.3 - 0.9 x10(3)/mc L [facility] Eosinophils % 0.4 % [facility] Eosinophils Abs 0.0 0.0 - 0.4 x10(3)/mc L [facility] Basophils % 0.4 % [facility] Basophils Abs 0.0 0.0 - 0.1 x10(3)/mc L [facility] Immature Gran % 0.20 % [facility] Comment: Immature granulocytes(IG's)percentage and absolute count will include metamyelocytes, myelocytes, and promyelocytes. Blood smears from CBCs yielding IG's will be scanned manually for concordance. If this scan disagrees with the automated IG or if promyelocytes are noted, a manual differential will be performed. Amanda Gran Abs 0.01 0.00 - 0.04 x10(3)/[facility] Blood 07/08/2023 11:5 6 AM EST 07/08/2023 12:02 PM EST Narrative Resulting Agency Comment Spec In Lab Minh TOBAR HEMATOLOGY ORDERABLE S Performing Organization Address City/State/[facility] Co de Phone Number [facility] [place] [address] * (ABNORMAL) Hemogram (07/08/2023 11:56 AM EST) WBC 4.6 4.0 - 9.5 x10(3)/[facility] RBC 3.34(L) 4.00 - 5.21 x10(6)/[facility] Hemoglobin 11.0(L) 11.7 - 15.5 g/dL [facility] Hematocrit 33.2(L) 35.7 - 45.8 % [facility] MCV 99.4(H) 82.6 - 94.4 fL [facility] MCH 32.9(H) 27.1 - 32.0 pg [facility] MCHC 33.1 31.7 - 35.0 g/dL [facility] Platelets 166 145 - 357 x10(3)/[facility] RDWSD 47.1(H) 37.0 - 46.0 [facility] RDWCV 13.0 11.5 - 14.1 % [facility] MPV 9.0 7.6 - 12.9 [facility]ORY nRBC % Auto 0.0 % [facility] nRBC Abs Auto 0.000 0.000 - 0.000 x10(3)/mcL [facility] Blood 07/08/2023 11:5 6 AM EST 07/08/2023 12:02 PM EST Narrative Resulting Agency Comment Spec In Lab Minh TOBAR HEMATOLOGY ORDERABLE S [facility] [place] [address] * (ABNORMAL) Comprehensive metabolic panel (non-fasting) (07/08/2023 [...] MD CHEMISTRY ORDERABLE S Performing Organization Address City/State/[facility] Co de Phone Number [facility] [place] [address] documented in this encounter Visit Diagnoses Diagnosis S/P TAVR (transcatheter aortic valve replacement) Severe aortic stenosis Aortic valve disorders documented in this encounter Care Teams Client Support Professional Relationship Specialty Start Date End Date Magdalena Acosta MD [address] [place] [address] PCP - General Family Medicine 02/05/23 documented as of this encounter
--- OUTSIDE RECORDS SUMMARY | 2024-03-02 13:56 | XMS_ITS | Encounter Summary ---
Author Organization [facility] [place] [address] Care Team Providers Care Towel Rolling Machine Operator Name Role Phone Magdalena Acosta MD Primary Care Provider [phone] Encounter Details Date Type Department Care Team (Late st Contact Info) Description 05/27/2023 Refill Cardiology at [address] [phone] Vero Marrero, RN Social History Tobacco Use Types Packs/Day Years Used Date Smoking Tobacco: Never Smokeless Tobacco: Never Alcohol Use Standard Drinks/Week Comments No 0 (1 standard drink = 0.6 oz pur e alcohol) none [facility] Inpatient Questions Answer Date Recorded [...] PM EDT TC to Nurse Sosa at [facility] to relay response from Jay Maza copied below. Nurse Sosa states they will send a new prescription to patient's preferred pharmacy and call the patient with the medication information. No print prescription sent to update med list. May 27, 2023 Jay Maza PA to [place] 05/27/23 2:44 PM OK to change ticagrelor to Clopidogrel. Now, she should be taking ticagrelor 90mg BID. When she switches, she can take ticagrelor, then the next morning, stop ticagrelor, instead take clopidogrel 300mg once, then after that 75mg once daily. Jay Marrero road advisor Clinic at [facility] [phone] * Telephone Encounter - Vero Marrero RN - 05/27/2023 1:46 PM EDT VM received from triage nurse Sosa at [facility] stating patient was seen today [...] more affordable option, if possible. Vero Marrero road advisor [facility] at [facility] [address] documented in this encounter Plan of Treatment Upcoming Encounters Date Type Department Care Team (Late st Contact Info) Description 06/05/2024 11:30 AM EST [place] [address] Magdalena Peralta MD [facility] [place] [address] 03/01/2025 4:15 PM EDT Office Visit Dermatology at [place] [address] [place] [address] Marek Bonilla MD [address], [address] [place] [address] documented as of this encounter Visit Diagnoses Diagnosis Aortic valve stenosis, etiology of cardiac valve disease unspecified documented in this encounter Care Teams Towel Rolling Machine Operator Relationship Specialty Start Date End Date Magdalena Acosta MD [address] [place] [address] PCP - General Family Medicine 02/05/23 documented as of this encounter
--- OUTSIDE RECORDS SUMMARY | 2024-03-02 13:56 | XMS_ITS | Encounter Summary ---
Author Organization [facility] [place] [address] Care Team Providers Care Agriculture Internship Name Role Phone Magdalena Acosta MD Primary Care Provider [phone] Encounter Details Date Type Department Care Team (Late st Contact Info) Description 07/29/2023 11:00 AM EST Office [place] [address] Magdalena Peralta MD [facility] [place] [address] Mixed connective tissue disease Social History Tobacco [...] Follow Up Note PCP: Magdalena Acosta MD Punrima Thacker is a 67 y.o. female who we are seeing for the continuing management of mixed connective tissue disease. Rheum History: - developed Raynaud's phenomenon, diffuse weakness - consistent history of leukopenia and neutropenia on review of labs - Work up initiated by Neurology: FRANCISCO 1:5120 speckled; VIC negative; Myositis panel with FISHING VESSEL OPERATOR ab 149.1 (positive); Anti U1RNP IgG [...] Viramontes. Magdalena Peralta MD Rheumatology Fellow Pager: [phone] * Kia Viramontes DO - 07/29/2023 11:00 AM EST ATTENDING ADDENDUM The patient's history was reviewed, and I interviewed and examined the patient with Dr. Peralta I agree with her summary, findings, and plan. documented in this encounter Plan of Treatment Upcoming Encounters Date Type Department Care Team (Late st Contact Info) Description 06/05/2024 11:30 AM EST Office [place] [address] Magdalena Peralta MD [facility] [place] [address] 03/01/2025 4:15 PM EDT Office Visit Dermatology at [address] [place] [phone] Marek Bonilla MD [address] [place] [address], [place] [address] documented as of this encounter Results * [...] PFT FEV1/FVC Pre-BD Z-Score 0 COMPAS PFT OVG17-85 Actual Pre-BD 2.41 % COMPAS PFT SFD57-91 Predicted 1.8 % COMPAS PFT OAH55-66 Pre-BD % of Predicted 134 % COMPAS PFT CQX68-15 Pre-BD Z-Score 0.81 COMPAS PFT DLCO Hb [...] Normal spirometry. No diffusion impairment. Procedure Note oJya Guaman MD - 10/07/2023 FINDINGS: FEV1, FVC, [...] tissue documented in this encounter Care Teams Agriculture Internship Relationship Specialty Start Date End Date Magdalena Acosta MD [address] [place] [address] PCP - General Family Medicine 02/05/23 documented as of this encounter
--- OUTSIDE RECORDS SUMMARY | 2024-03-02 13:57 | XMS_ITS | Encounter Summary ---
[place] [address] Care Team Providers Care Asphalt Paver Operator Name Role Phone Magdalena Acosta MD Primary Care Provider [phone] Reason for Visit * Auth/Cert (Routine) Specialty Diagnoses / Procedures Referred By Contac t Referred To Contact Diagnoses Symptomatic severe aortic stenosis with low ejection fraction NSTEMI, CHF Haris Chua MD [facility] [address] [facility] Referral ID Status Reason Start Date Expiration Date Visits Re quested Visits Authorized [id number] 1 1 Encounter Details Date Type Department Care Team (Late st Contact Info) Description 05/12/2023 7:35 AM EDT Anesthesia [place] [address] Lynda Mcgowan MD [facility] [address] [place] [address] Alie Park MD [facility] [place] [address] Anesthesia Record Procedure Summary Procedure Name Responsible [...] cephalic vein (lateral side of arm), left; [id number]-[id number]-[id number] catheter system; Anatomical Landmarks; US Not Used; [...] Deutsch RN 05/15/23 184 by Luis Felipe Parar RN LDA Cath/EP Sheath 05/12/23; 0733; 14 Afghan (Fr); Right; Femoral; Arterial 05/12/23 0733 by Guerda Bender, RN 05/12/23 0830 by Guerda Bender RN LDA Cath/EP Sheath 05/12/23; 0734; 6 Afghan (Fr); Right; Femoral; Venous 05/12/23 0734 by Guerda Bender RN 05/12/23 0817 by Guerda Bender RN LDA Cath/EP Sheath 05/12/23; 0734; 7 Afghan (Fr); Left; Femoral; Arterial 05/12/23 0734 by Guerda Bender, RN 05/12/23 0837 by Guerda Bender RN LDA Cath/EP Sheath 05/12/23; 0734; 6 Afghan (Fr); Left; Femoral; Venous 05/12/23 0734 by [...] Procedure Summary Date: 05/12/23 Room / Location: [facility] / [facility] CATH [facility]S Anesthesia Start: 734 Anesthesia Stop: [...] All Anesthesia Providers: Anesthesiologist: Lynda Mcgowan MD Construction Sales Manager: Nico Graham MD Vitals Value [...] 05/08/2023 ??? Mild coronary artery disease by [facility] 11/09/2022 05/08/2023 ??? Heart failure with reduced [...] IMG S&I N/A 11/09/2022 CORONARY ANGIOGRAPHY; [facility],POSSIBLE PCI (WRVU 5.6) performed by Nitesh Escobedo MD at [facility] CATH LABS ??? PRO AORTOPLAS FOR SUPRAVALV STEN N/A 09/21/2016 @AORTOPLASTY FOR SUPRAVALVULAR STENOSIS (WRVU 29.33) performed by Alirio Esparza MD at [facility] MAIN OR ??? PRO REPLACEMENT PROSTHETIC AORTIC VALVE OPEN W CARDIOPULMONARY BYPASS HOMOGRF/STENT N/A 09/21/2016 @REPLACE AORTIC VALVE, OPEN, W\CPB, W\PROSTHETIC VALVE (WRVU 41.32) performed by Alirio Esparza MD at [facility] MAIN OR Social History Tobacco Use ??? [...] 3 general, with a(n) intravenous induction Add-on [id number] TAVR. In cardiogenic shock. Has arterial line, [...] 11:30 AM EST [place] [address] Magdalena Peralta MD [facility] [place] [address] 03/01/2025 4:15 PM EDT Office Visit Dermatology at [place] [address] [place] [phone] Marek Bonilla MD [address], [place] [address] documented as of this encounter Visit Diagnoses [...] mL/hr documented in this encounter Care Teams Asphalt Paver Operator Relationship Specialty Start Date End Date Magdalena Acosta MD [address] [place] [address] PCP - General Family Medicine 02/05/23 documented as of this encounter
--- OUTSIDE RECORDS SUMMARY | 2024-03-02 13:57 | XMS_ITS | Encounter Summary ---
Author Organization [facility] Address [facility] [place] [address] Care Team Providers Care Crab Steamer Name Role Phone Magdalena Acosta MD Primary Care Provider [phone] Encounter Details Date Type Department Care Team [...] AM EST Office [place] [address] Magdalena Peralta MD [facility] [address] 03/01/2025 4:15 PM EDT Office Visit Dermatology at [place] [address] [place] [phone] Marek Bonilla MD [address] [place] [address] RD, [place] [address] documented as of this encounter Visit Diagnoses Not on filedocumented in this encounter Care Teams Crab Steamer Relationship Specialty Start Date End Date Magdalena Acosta MD [address] [place] [address] PCP - General Family Medicine 02/05/23 documented as of this encounter
--- OUTSIDE RECORDS SUMMARY | 2024-03-02 13:57 | XMS_ITS | Encounter Summary ---
Author Organization [facility] [place] [address] Care Team Providers Care Washer Hand Name Role Phone Magdalena Acosta MD Primary Care Provider [phone] Reason for Referral * Diagnostic Test (Routine) - Closed Specialty Diagnoses / Procedures Referred By Contac t Referred To Contact Cardiology Diagnoses S/P TAVR (transcatheter aortic valve replacement) Procedures Echocardiogram Transthoracic Vinod Juárez PA [facility] [place] [address] [facility] [place] [address] Referral ID Status Reason Start Date Expiration Date V isits Requested Visits Authorized [id number] Closed Specialty Service Requested 05/22/2023 05/21/2024 1 1 * Home Health Care (Routine) - Closed Specialty Diagnoses / Procedures Referred By Contac t Referred To Contact Diagnoses S/P TAVR (transcatheter aortic valve replacement) Alirio Hudson MD [facility] [place] [address] [facility] [address] [place] [address] Referral ID Status Reason Start Date Expiration Date V isits Requested Visits Authorized [id number] Closed Consult, Test & Treat 05/22/2023 11/18/2023 999 999 * Consultation (Routine) - Closed Specialty Diagnoses / Procedures Referred By Crispin maxwell Referred To Contact Cardiology Diagnoses S/P TAVR (transcatheter aortic valve replacement) Alirio Hudson MD [facility] [place] [address] Cardiac Rehab, [facility] [address] [place] [address] [place] [address] Referral ID Status Reason Start Date Expiration Date V isits Requested Visits Authorized [id number] Closed Consult, Test & Treat 05/22/2023 11/18/2023 36 36 * Diagnostic Test (Routine) - Closed Specialty Diagnoses / Procedures Referred By Crispin maxwell Referred To Contact Cardiology Diagnoses Aortic valve stenosis, etiology of cardiac valve disease unspecified Procedures Echocardiogram Transthoracic Transesophageal Echocardiogram (YUSRA) Radha Hollins MD [facility] [place] [address] [facility] [place] [address] Referral ID Status Reason Start Date Expiration Date V isits Requested Visits Authorized [id number] Closed Specialty Service Requested 05/11/2023 05/10/2024 1 1 Reason for Visit * Auth/Cert (Routine) Specialty Diagnoses / Procedures Referred By Crispin maxwell Referred To Contact Diagnoses Symptomatic severe aortic stenosis with low ejection fraction NSTEMI, CHF Enrique Chua MD [facility] [place] [address] [facility] Referral ID Status Reason Start Date Expiration Date Visits Re quested Visits Authorized [id number] 1 1 Encounter Details Date Type Department Care Team (Latest Contact Info) Description 05/08/2023 9:14 AM EDT - 05/22/2023 10:46 AM EDT Hospital Encounter Heart and Vascular Unit Level 4 [place] [address] Enrique Chua MD [facility] [place] [address] Juan Luis Gonzalez MD [facility] [place] [address] Radha Hollins MD [facility] [place] [address] Alirio Hudson MD [facility] [place] [address] S/P TAVR (transcatheter aortic valve replacement) (Primary Dx); Aortic valve stenosis, etiology of cardiac valve disease unspecified; Symptomatic severe aortic stenosis with low ejection fraction; Heart failure with reduced ejection fraction due to heart valve disease; Mild coronary artery disease by [facility] 11/09/2022; Mixed connective tissue disease; [...] Patient Age: 67 y.o. Birthdate: 1955 Language: Niuean Race: White Ethnicity: Not nor Admit Date: 05/08/2023 Discharge Date: 05/22/2023 Attending Physician: Alirio Hudson MD Follow-up Recommendations for Providers: Please continue routine management of cardiovascular risk factors including blood pressure, lipids,glucose, etc. Please note any medication changes. Patient to follow up with PCP, Magdalena Acosta MD, or Primary Cathode Maker, Maria Luz Mejia MD, in ~ 7-10 days. Patient to follow up with Software Quality Automation Engineer, Dr. Antlemo Sharma, in 2 weeks with an EKG, Echo, CBC, and CMP. Patient to follow up with Nephrology, their office to arrange. Lsuy-Wxdmcx-jz interval: After initial 30 day follow-up appointment , all TAVR patients will follow-up again in one year with an echo. 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 INTERVENTIONL RAD PRG CATH PLMT LEFT HEART CATH & ARTS W/INJ & ANGIO IMG S&I N/A 11/09/2022 CORONARY ANGIOGRAPHY; W [facility],POSSIBLE PCI (WRVU 5.6) performed by Mario Alberto Escobedo MD at [facility] CATH LABS PRG COMBINED RIGHT & LEFT HEART CATH W/INJ L VENTRICULOGRAPHY, IMG S&I N/A 05/12/2023 COMBINED RIGHT & LEFT HEART CATH,INC INJ FOR L VENTRICULOGRAPHY (WRVU 5.99) performed by Antelmo Sharma MD at [facility] CATH LABS PRO AORTOPLAS FOR SUPRAVALV STEN N/A 09/21/2016 @AORTOPLASTY FOR SUPRAVALVULAR STENOSIS (WRVU 29.33) performed by Alirio Hudson MD at [facility] MAIN OR PRO REPLACE AORTIC VALVE (TAVR/FEDERICO)PERC FEMORAL ARTERY APPROACH 05/12/2023 @TRANSCATHETER AORTIC VALVE REPLACEMENT (TAVR), PERCUTANEOUS FEMORAL (WRVU 22.47) performed by Alirio Hudson MD at [facility] CATH LABS PRO REPLACEMENT PROSTHETIC AORTIC VALVE OPEN W CARDIOPULMONARY BYPASS HOMOGRF/STENT N/A 09/21/2016 @REPLACE AORTIC VALVE, OPEN, W\CPB, W\PROSTHETIC VALVE (WRVU 41.32) performed by Alirio Hudson MD at [facility] MAIN OR Prior To Admission Medications Medications [...] Major Procedures/Operations: 05/12/23: Successful right transfemoral TAVR Njtdo-lb-Remng with a 23 mm Lai 3 THV. Left coronary protection with left main MINNA. Hospital Course: #Severe prosthetic s/p valve in valve TF TAVR #Low coronary heights s/p left main stent for coronary protection #Type 2 NSTEMI, present on arrival, resolved #Acute decompensated HFrEF #Cardiogenic shock #EVANS / Cardiorenal syndrome Purnima Thacker was admitted to [facility] on 05/08/2023 via the Cardiology Service [...] TAVR and she was brought to the cathode maker the following morning where Drs. Alirio Hudson [...] if you have questions. Please call your Software Quality Automation Engineer's office if you have any discharge or drainage from your procedural sites. Your Software Quality Automation Engineer, Dr. Antelmo Sharma and/or the Student Support Advisor may be reached at . Antibiotic prophylaxis: You will need to take antibiotics prior to many invasive tests and treatments, such as dental cleaning, which should be done every 6 months. Your primary care physician or your dentist can prescribe this medication. Please refer to the card with the [place] [employer] Guidelines for more information. You have been provided with a copy of this card. Please refer to the [place] [employer] Guidelines for more information. Good [...] friends, go to a movie, go to sikh, etc. Heavy activities: No hunting, skiing, jogging, [...] should resume a low fat, low cholesterol, [place] [employer] Diet Driving: No restrictions. Shower/Bath: You may shower daily. No baths, soaking, or swimming for the first week. Wound care: Wash the sites daily with soap and rinse well, pat dry. Assess for any signs of infection such as increased redness, pain, warmth or drainage. Please call your presentation designer's office if you have any discharge or drainage from your procedural sites. If there is a lot of swelling, apply mamta wraps during the day and remove at bedtime. Elevate your legs when you are sitting. Home oxygen therapy: N/A Follow up appointments: Please schedule a follow-up appointment with your PCP, Magdalena Acosta MD, or Primary Cathode Maker in ~ 7-10 days. You have a follow-up appointment with your Software Quality Automation Engineer, Dr. Antelmo Sharma, in 2 weeks with an EKG, Echo, and labs prior to your appointment. You will need follow-up with Nephrology, their office will arrange. Bqfe-Wrkrrx-yc interval: After initial 30 day follow-up appointment , all TAVR patients will follow-up again in one year with an echo. Cardiac Rehabilitation: Purnima Thacker was seen today regarding participation in the outpatient Phase 2 Cardiac Rehabilitation at [facility]. The patient agrees to a referral to this program. The referral will be sent at discharge and the patient should be contacted by the Program within 1- 2 weeks from discharge. Future Appointments and Orders Future Appointments and Orders Future Appointments Provider Department Dept Phone 07/29/2023 11:00 AM Magdalena Peralta MD Rheumatology at [facility] Arrive at: Manager Quality Area [phone] 02/11/2024 2:00 PM Marek Bonilla MD Dermatology at [place] Arrive at: [facility] [address] [phone] Future Orders Complete By Expires Type and Screen Future Surgery, [facility] SAME DAY PROGRAM ONLY) [[id number] Custom] 05/11/2023 Process Instructions: This test is intended ONLY for patients with upcoming surgery for testing prior to the day of surgery obtained through the same day program (4V or SDP). For ALL OTHER PATIENTS, order a Type and Screen (KKT737) This order includes the physician order for an ABO Recheck if requested by the Blood Bank. Scheduling Instructions: Comments: Questions: Date of surgery: CBC (with Diff) [MUK765 Custom] 06/05/2023 12/05/2023 Process Instructions: INCLUDES: WBC, RBC, Hgb, Hct, Platelets, RBC Indices and Differential Scheduling Instructions: Comments: Questions: Comprehensive metabolic panel (non-fasting) [LAB17 Custom] 06/05/2023 08/20/2023 Process Instructions: INCLUDES: Calcium, T Protein, Albumin, AST, ALT, Alk Phos, T Bili, BUN, Creat, GFR, Glucose, Lytes. Scheduling Instructions: Comments: Questions: Echocardiogram Transthoracic [14615 CPT(R)] 06/05/2023 12/05/2023 Process Instructions: Scheduling Instructions: Questions: Where will study be performed?: [facility] Clinics Does the patient have Congenital Heart Disease?: Does patient require sedation?: GA rationale: EKG 12 Lead [78584 CPT(R)] 06/05/2023 12/05/2023 Process Instructions: Scheduling Instructions: Questions: Which location will this be performed?: [place] Is a rhythm strip needed?: No [employer] [EQ161 Custom] As directed Process Instructions: Scheduling Instructions: Questions: Device Needed: WALKER (E0143) Patient Height (cm): 154.9 cm (5' 0.98) Patient Weight: 75.4 kg (166 lb 3.2 oz) Diagnosis: Unsteady gait when walking Referral to Cardiac Rehab [QTK351 Custom] As directed Process Instructions: If no progress note charted, please enter Clinical details in comments. Scheduling Instructions: Questions: My question or request is: s/p TAVR. Cardiac rehab at [facility]. Referral to Home Health [REF34 Custom] As directed Process Instructions: If no progress note charted, please enter Clinical details in comments. Scheduling Instructions: Comments: DOCUMENTATION FOR VNA SERVICES PATIENT'S LOCATION: Purnima Thacker [address] [place] [phone] (home) Human Resources Trainee's Name: Irineo and brother Raymond In discussion with the attending physician, it is certified that this patient is under his/her careand that MD, or an POLITICAL SCIENCE RESEARCH ASSISTANT, FLUE DUST LABORER, or PA who is working directly with him/her, had a jrpy-rl-okgm encounter that meets the physician qzfh-ef-pnmu encounter requirements with this patient on 05/22/2023. [...] for managing ADLs. HOME HEALTH CARE AGENCY: [facility] [place] [address] PHONE: [phone] FAX: [phone] Start of care: Ideally 24-48 hours after [...] [address] / [facility] [phone] All VNA agencies which cover the area of patient's residence have been reviewed, either verbally joao writing, and patient has chosen the home health care agency noted. Questions: Disciplines Requested: Physical Therapy Occupational Therapy Discharge References/Attachments None Arrangements for VNA/home care: As above. (delete if no VNA) Signed: EKATERINA NAVARRETE [facility] Section of Cardiac Surgery Date: 05/22/2023 CC: Magdalena Acosta MD SproulMario Alberto MD [address] [place] [address] documented in this encounter Discharge Instructions * Patient Instructions* Vinod Juárez PA - 05/22/2023 9:32 AM EDT TAVR Discharge Instructions: Call your doctor if: You have a fever of greater than 101 degrees, shaking chills, if you develop redness or drainage from your procedure sites, or if you have questions. Please call your Software Quality Automation Engineer's office if you have any discharge or drainage from your procedural sites. Your Software Quality Automation Engineer, Dr. Antelmo Sharma and/or the Student Support Advisor may be reached at . Antibiotic prophylaxis: You will need to take antibiotics prior to many invasive tests and treatments, such as dental cleaning, which should be done every 6 months. Your primary care physician or your dentist can prescribe this medication. Please refer to the card with the [place] [employer] Guidelines for more information. You have been provided with a copy of this card. Please refer to the [place] [employer] Guidelines for more information. Good [...] friends, go to a movie, go to sikh, etc. Heavy activities: No hunting, skiing, jogging, [...] should resume a low fat, low cholesterol, [place] [employer] Diet Driving: No restrictions. Shower/Bath: You may shower daily. No baths, soaking, or swimming for the first week. Wound care: Wash the sites daily with soap and rinse well, pat dry. Assess for any signs of infection such as increased redness, pain, warmth or drainage. Please call your presentation designer's office if you have any discharge or drainage from your procedural sites. If there is a lot of swelling, apply mamta wraps during the day and remove at bedtime. Elevate your legs when you are sitting. Home oxygen therapy: N/A Follow up appointments: Please schedule a follow-up appointment with your PCP, Magdalena Acosta MD, or Primary Cathode Maker in ~ 7-10 days. You have a follow-up appointment with your Software Quality Automation Engineer, Dr. Antelmo Sharma, in 2 weeks with an EKG, Echo, and labs prior to your appointment. You will need follow-up with Nephrology, their office will arrange. Xsag-Fzdkiu-fs interval: After initial 30 day follow-up appointment , all TAVR patients will follow-up again in one year with an echo. Cardiac Rehabilitation: Purnima Thacker was seen today regarding participation in the outpatient Phase 2 Cardiac Rehabilitation at [facility]. The patient agrees to a referral to [...] ins ( tef) Haven Ba, PT Pager: [phone] Physical Therapy Inpatient Rehabilitation Department * Nico [...] 0600 and on the weekends please page [phone]. * Jory Paniagua - 05/20/2023 3:52 PM [...] vomiting Last Bowel Movement: 05/20/23 Jory Paniagua Longitudinal Float Operator * Tong Mike, OT - 05/20/2023 3:16 [...] Tube Placement Right 05/18/2023 Laure Ricks PA [facility] INTERVENTIONL RAD PRG CATH PLMT LEFT HEART CATH & ARTS W/INJ & ANGIO IMG S&I N/A 11/09/2022 CORONARY ANGIOGRAPHY; W [facility],POSSIBLE PCI (WRVU 5.6) performed by Mario Alberto Escobedo MD at [facility] CATH LABS PRG COMBINED RIGHT & LEFT HEART CATH W/INJ L VENTRICULOGRAPHY, IMG S&I N/A 05/12/2023 COMBINED RIGHT & LEFT HEART CATH,INC INJ FOR L VENTRICULOGRAPHY (WRVU 5.99) performed by Antelmo Sharma MD at [facility] CATH LABS PRO AORTOPLAS FOR SUPRAVALV STEN N/A 09/21/2016 @AORTOPLASTY FOR SUPRAVALVULAR STENOSIS (WRVU 29.33) performed by Alirio Hudson MD at [facility] MAIN OR PRO REPLACE AORTIC VALVE (TAVR/FEDERICO)PERC FEMORAL ARTERY APPROACH 05/12/2023 @TRANSCATHETER AORTIC VALVE REPLACEMENT (TAVR), PERCUTANEOUS FEMORAL (WRVU 22.47) performed by Alirio Hudson MD at [facility] CATH LABS PRO REPLACEMENT PROSTHETIC AORTIC VALVE OPEN W CARDIOPULMONARY BYPASS HOMOGRF/STENT N/A 09/21/2016 @REPLACE AORTIC VALVE, OPEN, W\CPB, W\PROSTHETIC VALVE (WRVU 41.32) performed by Alirio Hudson MD at [facility] MAIN OR Social History: Patient lives alone. Home Setup: Pt lives on one level with tub shower and three steps to enter. 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 Total Minutes, Occupational Therapy: 28 ([phone]) OT Evaluation Code Rationale: Diagnosis & Pertinent Co-Morbidities affecting Plan of Care: see PMHx Occupational Profile & Client History: Brief Expanded Extensive x Assessment of Occupational Performance: 1-3 performance deficits 3-5 performance deficits x 5 + performance deficits Clinical Decision Making: Low Moderate High x Clinical decision making of moderate complexity using standardized patient assessment instrument and measurable assessment of functional outcome. Pager: [phone] TONG MIKE OT 05/20/2023 Occupational Therapy Rehabilitation [...] 0600 and on the weekends please page [phone]. * Rylie Rodriguez MD - 05/19/2023 3:59 [...] and plan. Cynthia Blackburn MD Nephrology Pager: [phone] * Diana Espino - 05/19/2023 1:49 PM EDT Packaging Line Operator Encounter Note Patient Name: Purnima Thacker : [id number] MR#: [id number] Admit Date: 05/08/2023 9:14 AM Hospital Day [...] in Direct Care: Piotr Espino 05/19/2023 * eHnrik Navarrete PTA - 05/19/2023 1:41 PM EDT [...] as stated. Total Minutes, Physical Therapy: 38 ([phone]) Henrik Navarrete, BOTANY TECHNICIAN Pager: [phone] Physical Therapy Inpatient Rehabilitation Department * Nico [...] 0600 and on the weekends please page [phone]. * Laure Ricks PA - 05/19/2023 7:56 [...] Ricks PA-C Interventional Radiology IR Team Pager [phone] * Consuelo Espinoza RN - 05/18/2023 4:13 PM EDT ANGIO NURSING DATABASE Name: Purnima Thacker Date of : 1955 AGE: 67 y.o. [address]: [address] [place] [phone] (home) Mobile: No relevant phone numbers on file. Referring Provider: Mario Alberto H Delaney REASON FOR VISIT: Order Questions Answers Is [...] I35.0 Mild coronary artery disease by [facility] 11/09/2022 I25.10 Heart failure with [...] and plan. Cynthia Blackburn MD Nephrology Pager: [phone] * Magdalena Puri, RESOURCE ANALYST - 05/18/2023 10:51 AM EDT Images from the original note were not included. [facility] [place] [phone] STRUCTURAL HEART DISEASE CONSULTATION NOTE PRIMARY CARE [...] stenosis. She is now status post TAVR Npctu-uj-Wzcbv with a 23 mm Lai 3 THV 05/12/[address] Sharma. Preliminary findings: Successful right transfemoral TAVR Cimfc-ho-Ffmdd with a 23 mm Lai 3 THV. [...] perforation. Interval Events: - 05/12 Transferred to [facility] post- TAVR for pressor/inotropic support (Levo, vaso, epi, milrinone gtts) - 05/12/ Extubated 1600 - 10/11 Decreased u/o overnight s/p gentle colloid resuscitation [...] fraction Mild coronary artery disease by [facility] 11/09/2022 Heart failure with reduced [...] tablet 81 mg 81 mg Oral Daily Maggie ANURAG Terry 81 mg at 05/18/23 0826 ondansetron (pf) (Zofran) (2 mg/mL) injection 4 mg 4 mg Intravenous Q8H PRN MaggieMara ernandez APRN4 mg at 05/12/23 0736 pantoprazole EC (Protonix) tablet 40 mg 40 mg Oral Daily MaggieMara ernandez APRN 40 mg at 05/18/23 0826 Or pantoprazole (Protonix) injection 40 mg 40 mg Intravenous Daily MaggieMara ernandez APRN 40 mg at 05/12/23 1004 senna-docusate (Pericolace) 8.6-50 mg per tablet 2 tablet 2 tablet Oral Daily BenningtonMara ernandez APRN 2 tablet at 05/16/232111 bisacodyL (Dulcolax) suppository 10 mg 10 mg Rectal Daily PRN MaggieMara ernandez APRN melatonin tablet 6 mg 6 mg Oral Nightly PRN BenningtonMara ernandez APRN 6 mg at 05/17/232024 influenza vaccine [...] Right pleural effusion Cardiogenic shock, recovered Purnima Thacker is a 67 y.o. female [...] stenosis. She is now status post TAVR Pbpeg-rw-Kauju with a 23 mm Lai 3 THV [...] Magdalena Puri APRN Structural Heart Team Pager [phone] Team Office Please see addendum by Dr. Sharma for final plan and recommendations Associated attestation - Antelmo Sharma MD - 05/19/2023 10:52 PM EDT I have reviewed Magdalena Puri APRN's above history and I agree with the details as written. The assessment and plan were formulated in discussion with me and I agree with them as documented. Antelmo Sharma MD Pager [phone] * Nico Palacios PA - 05/18/2023 8:13 [...] 0600 and on the weekends please page [phone]. * Loli Hernandez, PT - 05/17/2023 5:27 [...] plan as stated. Time IN / OUT: 1719-6479 Total Minutes, Physical Therapy: 54 Billing Code: te-sx2, te-f, gait LOLI HERNANDEZ, PT Pager: [phone] Physical Therapy Inpatient Rehabilitation Department * Cynthia [...] Well controlled. Cynthia Blackburn MD Nephrology Pager: [phone] * Mara Serrano, ANURAG - 05/17/2023 8:26 [...] 0600 and on the weekends please page [phone]. * Guerda Del Valle - 05/16/2023 10:44 AM EDT Nutrition Services Note - Low Nutrition Acuity Purnima M Kirstie is a 67 y.o. female Reason for intervention: hospital day 9 Nutrition Plan: Continue diet order Encourage good PO Josephine noted Added special serve: open containers Monitor weight Patient scheduled for a hospital day 9 nutrition evaluation. Head Usher met with pt at bedside. Pt reports that her appetite and PO has much improved since admission. Denies nausea/vomiting or trouble chewing/swallowing. Head Usher provided snack list but pt not interested in adding snacks at this time. Her only concern was that she is worried that she will eat too much which will cause too much pressure in her stomach. Head Usher assured pt and suggested eating smaller but [...] no vomiting Last Bowel Movement: 05/10/23 Guerda C [place] Longitudinal Float Operator * Vinod Juárez PA - 05/16/2023 10:19 [...] 0600 and on the weekends please page [phone]. * Michael Jeffers MD - 05/16/2023 8:11 AM EDT Images from the original note were not included. Hypertension-Nephrology Inpatient Follow-up Purnima Thacker [id number] 1955 ID: 67 y.o. old female seen [...] IRONSAT 12 (L) 05/16/2023 SFOLATE >20.0 07/03/2022 [id number] 07/03/2022 Lab Results Component Value Date [...] Dr. Ayoub. Please contact me at phone: [phone] or pager: [phone] with any questions. Michael Jeffers MD Nephrology [...] -Nephrology consulted, labs and renal US ordered -Vansant removed, ambulated around the unit -bilateral pleural [...] 0600 and on the weekends please page [phone]. * Hortencia Cody MD - 05/15/2023 2:07 [...] not included. Hypertension-Nephrology Inpatient Follow-up Purnima Thacker [id number] 1955 ID: 67 y.o. old female seen [...] HGB 7.8 (L) 05/13/2023 SFOLATE >20.0 07/03/2022 [id number] 07/03/2022 Lab Results Component Value Date [...] Dr. Ayoub. Please contact me at phone: [phone] or pager: [phone] with any questions. Michael Jeffers MD Nephrology [...] 2.01* Last 3 LFTs Recent Labs 05/14/2310905/13/23 01105/12/23 0600 AST 319* 792* 1,435* ALT [...] last 720 hours. T/L/D Art ETT CVL [place] ASSESSMENT, MANAGEMENT, and DECISION MAKIN y.o. female [...] outlined inthis evaluation. HAVEN BA, PT Pager: [phone] Physical Therapy Inpatient Rehabilitation Department Time IN / OUT: [id number] Total time: Total Minutes, Physical Therapy: 30 [...] 0600 and on the weekends please page [phone]. * Antelmo Sharma MD - 05/14/2023 7:56 AM EDT Images from the original note were not included. [facility] [place] [address] [address] STRUCTURAL HEART DISEASE CONSULTATION NOTE PRIMARY CARE [...] stenosis. She is now status post TAVR Wmewu-ci-Wtspv with a 23 mm Lai 3 THV 05/12/[address] Sharma. Preliminary findings: Successful right transfemoral TAVR Lmrvt-cd-Njupj with a 23 mm Lai 3 THV. [...] perforation. Interval Events: - 05/12 Transferred to [facility] post- TAVR for pressor/inotropic support (Levo, [...] fraction Mild coronary artery disease by [facility] 11/09/2022 Heart failure with reduced [...] stenosis. She is now status post TAVR Ylrvn-oa-Ebpjf with a 23 mm Lai 3 THV 05/12/[address] Sharma. Janet TAVR case notable for coronary LAD protective MINNA. Status post TAVR, the patient was transferred to CV for pressor and inotropic support. Pressors weaned overnight 05/12. Cardiac indices by thermodilution remained >3 with continued Milrinone 0.125 mcg/kg/min prior to PAC removal. EKG todayNSR with stable AK/QRS intervals. Hemoglobin slowly down-trending (8.2-> 7.8-> 7.2). [...] Brody Kaplan APRN Structural Heart Team Pager [phone] Team Office Please see addendum by Dr. [...] exposure. Nephrology consultationtoday. Antelmo Sharma MD Pager [phone] * Antelmo Cardenas RN - 05/14/2023 5:18 AM EDT Pt AOx4, complaining of mild/moderate generalized pain (states her Meloxicam is effective at home) currently refusing prn oxycodone. NAEON, hemodynamically stable on Milrinone, Maps >65, ST in [id number]'s down to NSR with frequent multifocal PVC's. [...] [facility] [address] [place], [place] [address] STRUCTURAL HEART DISEASE PROGRESS NOTE PRIMARY CARE [...] stenosis. She is now status post TAVR Vrhzc-do-Dagsx with a 23 mm Lai 3 THV 05/12/[address] Sharma. Preliminary findings: Successful right transfemoral TAVR Rgdof-au-Xbuvo with a 23 mm Lai 3 THV. [...] fraction Mild coronary artery disease by [facility] 11/09/2022 Heart failure with reduced [...] stenosis. She is now status post TAVR Iqonh-ki-Okpkl with a 23 mm Lai 3 THV 05/12/[address] Sharma. Janet TAVR case notable for coronary LAD protective MINNA. Status post TAVR, the patient was transferred to CV for pressor and inotropic support. Pressors weaned overnight. Cardiac indices by thermodilution remain greater than 3 with continued Milrinone 0.125 mcg/kg/min. EKG today NSR with stable AK/QRS intervals. Hemoglobin 7.8 today from 8.5, likely [...] Brody Kaplan APRN Structural Heart Team Pager [phone] Team Office Please see addendum by Dr. [...] DAPT moving forward. Antelmo Sharma MD Pager [phone] * Bonita Miguel PA - 05/13/2023 8:30 AM EDT Cardiac Surgery Progress Note Purnima Thacker is a 67 y.o. 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 PMH of s/p tissue AVR (2017), mixed connective tissue disease HTN, HLD, NICOLAS, diverticulosis, rosacea, essential tremor, and depression. 24h Events: From cathode maker for above procedure Extubated at ~1600 to [...] soft b/l, no evidence of hematoma. Tubes/Lines/Drains: Vansant, LUKAS, A-line, Art, ROSAURA Assessment/Plan: 67 y.o. female [...] 0600 and on the weekends please page [phone]. * Onelia Schwartz MD - 05/12/2023 1:44 [...] fraction Mild coronary artery disease by [facility] 11/09/2022 Heart failure with reduced [...] FiO2 weaned to 40%. 1105: ABG 7.34/42/73/22 [id number]: SBT performed and passed on these settings [...] PCP: Magdalena Acosta MD PCP phone number: [phone] Date of Admission: 05/08/2023 ( Hospital Day [...] (Arterial Blood Gas) Recent Labs 05/12/23 0705/12/2331705/12/2310505/11/23193905/11/23 1447 PHART -- 7.34* 7.34* -- -- [id number] -- 30* 30* -- -- PO2ART -- 72* 81* -- -- GDG5MIH -- 16.0* 15.7* -- -- LACTATEVEN 2.4* 2.7* 2.7* 4.8* 2.9* VBG (Venous Blood Gas) Recent Labs 05/12/23 0705/12/2331705/12/2310505/11/23193905/11/23 144 LACTATEVEN 2.4* 2.7* 2.7* 4.8* 2.9* Mixed Venous Sat Recent Labs 05/12/23 0508 05/12/23 0321 05/12/23 0114 05/12/23 0030 [id number] 30.7 32.7 37.3 25.1 Objective: Vitals Last [...] who have questions please contact the health student career development specialist that requested your imaging first. Cardiac for [...] who have questions please contact the health student career development specialist that requested your imaging first. Electronically signed by: Cullen Narayanan MD, [facility] ([phone]), at 05/11/2023 4:[address] Angiogram Abdomen [...] who have questions please contact the health student career development specialist that requested your imaging first. Chest One [...] who have questions please contact the health student career development specialist that requested your imaging first. Chest One [...] who have questions please contact the health student career development specialist that requested your imaging first. Assessment & [...] and inotrope. She is planned for a gqwte-ui-imjfx TAVR this morning, which should hopefully improve [...] FACP, FACC Section of Cardiovascular Medicine [facility] Paintings Restorercounty adviser [employer] [facility] * Noreen Deutsch RN - 05/12/2023 [...] fraction Mild coronary artery disease by [facility] 11/09/2022 Heart failure with reduced [...] 05/11/2023 4:11 PM EDT Reported off to DISTRICT ENGINEER and pt transferred over in the bed for higher level of care. * Antelmo Sharma MD - 05/11/2023 9:45 AM EDT Images from the original note were not included. [facility] [place] [address] [place] [address] STRUCTURAL HEART DISEASE CONSULTATION NOTE PRIMARY CARE [...] who had been referred for possible TAVR bgvht-fm-zovpb evaluation. Her primary symptoms are of dyspnea [...] otherwise negative. Ms. Thacker is originally from [place]. 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 She states that, [...] fraction Mild coronary artery disease by [facility] 11/09/2022 Heart failure with reduced ejection fraction due to heart valve disease Mixed connective tissue disease Neck pain Diverticulosis Hyperlipidemia, unspecified Rosacea 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, 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) Aortic stenosis Chronic idiopathic neutropenia NICLOAS (obstructive sleep apnea) Depressive disorder Essential tremor [...] PRN Cristina Jernigan MD 20 mEq at 05/08/232037 FAMILY HISTORY: [...] hour(s)) Lactate, whole blood, send to lab ([facility]) Result Value Ref Range Lactate WB 3.1 (H) 0.5 - 2.2 mmol/L Heparin (unfractionated) Level Result Value Ref Range Heparin UFH Level 0.46 IU/mL Lactate, whole blood, send to lab ([facility]) Result Value Ref Range Lactate WB 1.8 [...] leads Confirmed by MD Harshil, Enrique Bell ([id number]) on 05/10/2023 8:11:46 AM Cardiac Cath 11/09/2022 [...] to decompensating HFrEF, she was transferred to [facility] this afternoon for further management. TAVR CT imaging support for adequate ileofemoral access. Given her acute deterioration today, will planfor RTF TAVR on 05/12/2023. Brody Kaplan APRN Structural Heart Disease Pager [phone] Please see addendum by Dr. Sharma for final plan I have seen the patient in person and reviewed Brody Enriquezwilder OSBORN's above history and I agree with [...] signed and dated. Antelmo Sharma MD Pager [phone] * Harini Lance MD - 05/11/2023 6:06 AM EDT Images from the original note were not included. Cardiology Progress Note Patient info: Name: Purnima Thacker : 1955 PCP: Magdalena Acosta MD PCP phone number: [phone] Date of Admission: 05/08/2023 ( Hospital Day [...] who have questions please contact the health student career development specialist that requested your imaging first. : 05/08 [...] 09/2016) Mild coronary artery disease by [facility] 11/09/2022 Hyperlipidemia, unspecified NICOLAS (obstructive [...] PCP: Magdalena Acosta MD PCP phone number: [phone] Date of Admission: 05/08/2023 ( Hospital Day [...] 09/2016) Mild coronary artery disease by [facility] 11/09/2022 Hyperlipidemia, unspecified NICOLAS (obstructive [...] PCP: Magdalena Acosta MD PCP phone number: [phone] Date of Admission: 05/08/2023 ( Hospital Day [...] Gas) No results found for: PHART, PO2ART, XJC2JGI, QEJ7GVH Microbiology: Microbiology Results (Last 30 days) No [...] PPx: Diet: Daily Healthy Menu Choices/Cardiac diet ([facility]Diet) Lines: Peripheral IV Line - Single Lumen 10/07/23 1004 median cubital vein (antecubital fossa), right [...] 09/2016) Mild coronary artery disease by [facility] 11/09/2022 Hyperlipidemia, unspecified NICOLAS (obstructive [...] I35.0 Mild coronary artery disease by [facility] 11/09/2022 I25.10 Heart failure with reduced ejection fraction due to heart valve disease I50.20, I38 Cardiogenic shock R57.0 S/P TAVR (transcatheter aortic valve replacement) Z95.2 Past Medical History: Diagnosis Date Anemia Past Surgical History: Procedure Laterality Date PRG CATH [facility] LEFT HEART CATH & ARTS W/INJ & ANGIO IMG S&I N/A 11/09/2022 CORONARY ANGIOGRAPHY; W [facility],POSSIBLE PCI (WRVU 5.6) performed by Mario Alberto Escobedo MD at [facility] CATH LABS PRO AORTOPLAS FOR SUPRAVALV STEN N/A 09/21/2016 @AORTOPLASTY FOR SUPRAVALVULAR STENOSIS (WRVU 29.33) performed by Alirio Hudson MD at [facility] MAIN OR PRO REPLACEMENT PROSTHETIC AORTIC VALVE OPEN W CARDIOPULMONARY BYPASS HOMOGRF/STENT N/A 09/21/2016 @REPLACE AORTIC VALVE, OPEN, W\CPB, W\PROSTHETIC VALVE (WRVU 41.32) performed by Alirio Hudson MD at [facility] MAIN OR Social History and Habits: Social [...] mg every 6 hours when experiencing pain 1-10.). 30 tablet 5 spironolactone (ALDACTONE) 25 mg [...] I35.0 Mild coronary artery disease by [facility] 11/09/2022 I25.10 Heart failure with reduced ejection fraction due to heart valve disease I50.20, I38 Cardiogenic shock R57.0 S/P TAVR (transcatheter aortic valve replacement) Z95.2 Past Medical History: Diagnosis Date Anemia Past Surgical History: Procedure Laterality Date PRG CATH [facility] LEFT HEART CATH & ARTS W/INJ & ANGIO IMG S&I N/A 11/09/2022 CORONARY ANGIOGRAPHY; W [facility],POSSIBLE PCI (WRVU 5.6) performed by Mario Alberto Escobedo MD at [facility] CATH LABS PRO AORTOPLAS FOR SUPRAVALV STEN N/A 09/21/2016 @AORTOPLASTY FOR SUPRAVALVULAR STENOSIS (WRVU 29.33) performed by Alirio Hudson MD at [facility] MAIN OR PRO REPLACEMENT PROSTHETIC AORTIC VALVE OPEN W CARDIOPULMONARY BYPASS HOMOGRF/STENT N/A 09/21/2016 @REPLACE AORTIC VALVE, OPEN, W\CPB, W\PROSTHETIC VALVE (WRVU 41.32) performed by Alirio Hudson MD at [facility] MAIN OR Social History and Habits: Social [...] days, which prompted her to present to [employer]. She also endorses some intermittent retrosternal chest pain with exertion.She endorses some dizziness with exertion, but has not gotten faint or passed out. At [employer] she was noted to be afebrile, blood pressure 105/64, HR 120s, satting 95% on 2L NC. Labs from [employer] are below, of note she had elevated [...] 89/59, which prompted the transfer to us. [employer] labs: CBC - Hgb 10.5 CMP - Cr 1.1 BNP 59568 HsTrop 1358 Lactate 1.6 D-dimer 1183 Interval History Patient was admitted to [facility] due to concern on low BP [...] Klaudia Reid MD Internal Medicine PGY-1 Pager [phone], M1-S1 Service Associated attestation - Juan Luis Gonzalez MD - 05/08/2023 10:00 PM EDT Cardiology Attending Addendum Active Hospital Problems Diagnosis Symptomatic severe aortic stenosis with low ejection fraction Heart failure with reduced ejection fraction due to heart valve disease Mild coronary artery disease by [facility] 11/09/2022 Hyperlipidemia, unspecified History of [...] PCP: Magdalena Acosta MD PCP phone number: [phone] Date of Admission: 05/08/2023 ( Hospital Day 0 days ) Attending:Enrique Chua MD ID: Purnima Thacker is a 67 y.o. female w/ PMH of s/p bioprosthetic AVR in 2016 with recent concern for severe restenosis, HTN, HLD, mixed connective tissue disease, who presents in transfer from [employer] with worsening BONILLA and weight gain concerning [...] four days, which promptedher to present to [employer]. She also endorses some intermittent retrosternal chest pain with exertion. She endorses some dizziness with exertion, but has not gotten faint or passed out. At [employer] she was noted to be afebrile, blood pressure 105/64, HR 120s, satting 95% on 2L NC. Labs from [employer] [facility] [employer] are below, of note she had elevated [...] 89/59, which prompted the transfer to us. [employer] [facility] labs: CBC - Hgb 10.5 CMP - Cr 1.1 BNP 41034 HsTrop 1358 Lactate 1.6 D-dimer 1183 Vasoactive [...] tissue disease, who presents in [facility] [employer] [facility] BONILLA and weight gain concerning for [...] #Routine Diet: Daily Healthy Menu Choices/Cardiac diet ([facility]Diet) DVT Prophylaxis: heparin gtt GI Prophylaxis: none [...] to the planned procedure. Hand Hygiene: The carton liner did perform hand hygiene prior to arterial [...] Successful arterial line placement. Crispin Timmons MD Student Support Advisor Associated attestation - Onelia Schwartz MD - [...] (flow was non-pulsatile) and appearance of blood. Vansant-Marily catheter was placed and locked at 55 [...] discharge to home with family/friend support and [facility], pt will also have FWW delivered to her prior to her d/c. Needs for Transition of Care: Plan for discharge is: Home w/ Services Outpatient Agency/Support Group Needs: Homecare agency Home Health Services: Physical Therapy, Occupational Therapy Agency Referrals & Follow-up Care: Contact information for follow-up Home Health & Hospice, [facility] [address] [place] [address] Cardiac Rehab, [facility] [address] [place] [address] Home Health & Hospice, [facility] [address] [place] [address] Transportation: family or friend will provide *Brother [...] Type: *No Product type* / Secondary Insurance: [employer] [facility] Prescription Coverage: Yes This plan was formulated with input from patient, family (please identify family/friend involved ifapplicable) and team. All are in agreement with plan. Aliza Martino MSN-Ed, RN ACM data manager Office of Care Management Pager #[phone] * Plan of Care - Favian Mckeon [...] Chaudhary RN - 05/21/2023 4:46 PM EDTSumcaydeny: [facility] referral OFFICE OF CARE [...] Type: *No Product type* / Secondary Insurance: [place] Last Physical Therapy Recommendation: (Home with [...] planning needs. describing our affiliations within the [facility] and educate about their right to choose where referrals are sent. provide a list of Home Health Agencies / Durable Medical Equipment vendors which serve their preferred geographic area. They have requested referrals to: [facility] [address] [place] [id number] [facility] [place], [place] Note routed to a Vending Machine Filler who will communicate referrals to facilities and provide any required information. Transportation: family or friend will provide *Brother Raymond on Tuesday 05/22 at 1000 Barriers to discharge: Does not have home 22/02 assist available until tomorrow Tuesday 05/22 Plan going forward: Discharge home into the 22/02 home care of brother Raymond with [facility] FWW and [facility] PT/OT services on Tuesday 05/22 [...] Attending: All Staff: Staff Role Juanita Almaguer Mixer [employer] Laure Ricks PA Physician Bilingual Spanish Inbound Sales Magdalena Rodriguez RN Radiology Nurse Consuelo Espinoza [...] Type: *No Product type* / Secondary Insurance: [place] Last Physical Therapy Recommendation: usp facility, [...] to: discuss discharge planning needs. provide the [facility], Office of Care Management letter from the Ap Processor pertaining to rehab referrals. provide a letter describing our affiliations within the [facility] and educate about their right to choose where referrals are sent. provide the CMS Star Quality Rating handout. review the different levels of rehab including SNF, swing, and acute. provide a list of facilities within their preferred geographic area. request that they provide at least three choices for referral. They have requested referrals to: [facility] [address] [place] [address] [facility] ([facility]) [address] [place] [address] (Accepts pts only after exhausting all other local SNF options) [facility] (Swing) ([facility]) [address] [place] [address] PHONE: [phone] FAX: [phone] [facility] (Swing) ([facility]) [address] [place] [address] PHONE: [phone] FAX: [phone] Note routed to a Vending Machine Filler who will communicate referrals to facilities and [...] Crenshaw RN - 05/17/2023 10:25 AM EDT [facility] CARDIAC REHABILITATION Purnimakary Thacker was seen today regarding participation in the outpatient Phase 2 Cardiac Rehabilitation at [facility]. The patient agrees to a referral to [...] from the original note were not included. [facility] NEPHROLOGY/HYPERTENSION CONSULT NOTE PATIENT: Purnima Thacker : [...] in her course. She ultimately underwent a pwexj-ub-bihey procedure on and tolerated it well (see [...] 1423 05/12/23 1105 PHART 7.39 7.37 7.34* YIN8CLJ 33* 36 42 PO2ART 101 102 73* KSL6QVY 19.5* 20.4 22.1 LACTATEVEN 1.5 1.8 2.8* XFV4DFH 40 40 40 PFRATIOART2 252 255 182 VBG (Venous Blood Gas) Recent Labs 05/12/23 1557 05/12/23 1423 05/12/23 1105 LACTATEVEN 1.5 1.8 2.8* Mixed Venous Sat Recent Labs 05/12/23 1425 05/12/23 0508 05/12/23 0321 [id number] 59.9 30.7 32.7 LFT's: Recent Labs 05/14/23 0110 05/13/23 0115 05/12/23 0600 BILITOT 0.4 0.5 0.9 BILIDIR -- 0.3 -- ALBUMIN 3.6 3.0* 3.5 ALKPHOS 86 85 100 ALT 437* 903* 1,174* AST 319* 792* 1,435* No results found for: UPROTCREAT No results found for: TPROTEINPEP, ALBELECT No results found for: MICROALBUR, [id number] No results found for: HA1C Lab Results Component Value Date CALCIUM 8.5 05/14/2023 PHOS 4.7 (H) 05/08/2023 No results found for: 25OHVITD MICROBIOLOGY: ProcedureComponentValueUnitsDate/TimeUrine culture [[id number]]Collected: 05/11/23 1922Lab Status: Final resultSpecimen: Clean Catch [...] consulted for assessment if this patient needs SUPERVISOR PRECISION OPTICAL ELEMENTS. Atthis time, we can likely hold off on SUPERVISOR PRECISION OPTICAL ELEMENTS. Her volume status appears sufficient and her metabolic kanwal angements with mild acidosis is not too profound. Patient does not have significant uremic symptoms. We can hold off for today, but the patient is a high risk candidate for needing SUPERVISOR PRECISION OPTICAL ELEMENTS in future daysespecially if her Cr curve trends the direction it is for the next several days. S/p Hdwer-wj-Zxyzl TF TAVR: Management per cardiology. On milrinone gtt. PLAN: - Please obtain following diagnostics: renal US, urinalysis, urine prot/Cr ratio, urine albumin/Cr ratio, CK, uric acid, serum osmol, daily VBGs - No acute indications for SUPERVISOR PRECISION OPTICAL ELEMENTS/dialysis. We will keep close eye on Cr trend, volume status, and metabolics to ensure patient still does not need SUPERVISOR PRECISION OPTICAL ELEMENTS as she ensues intrinsic renal recovery - If needing to diuresis, please administer high dose lasix (ex - 200mg IV bolus) + high dose diuril (ex 500mg IV) - Hold home losartan, meloxicam, and plaquenil Avoid nephrotoxic medications including NSAIDs and contrast. Thanks for letting us participate in the care of this patient. 05/14/2023 Malathi Muro M.D., M.P.H., M.HDavid., M.A. PGY-V Nephrology-Hypertension Fellow Page # [phone] [facility] [address] 2nd floor, Manager Quality [address] [place] [address] * Care Management - Mario Alberto Olmos [...] *No Product type* / Secondary Insurance: [facility] Plan for discharge is: Home w/o [...] for a TAVR at 730. Returned to [facility] at 0945. Was intubated in the cathode maker due to agitation. Maintained bedrest for 5 [...] Operative Note Patient Name: Purnima Thacker : [id number] MR#: [id number] Case Date: 05/12/2023 Surgeon: Surgeon(s) and Role: [...] procedure Note: Patient Name: Purnima Thacker : [id number] MR#: [id number] Case Date: 05/12/2023 Operators Surgeon: Surgeon(s) and [...] main with 4.0 x 30 mm Resolute Nice Drug Eluting Stent Perclose x1 + Angio-seal 8 Fr x1, RFA Manual pressure, LFA Manual pressure, LFV Endotracheal intubation (performed by cardiac anesthesia) Preliminary findings: Successful right transfemoral TAVR Pcksl-ed-Rmolg with a 23 mm Lai 3 THV. [...] MD, M.Sc. Structural Heart Disease Fellow Pager :[phone] Antelmo Sharma MD Pager [phone] * Op Note - Alirio Hudson MD - 05/12/2023 7:37 AM EDT Preop Diagnosis: Severe aortic stenosis, symptomatic. Postop Diagnosis: Same. Procedure: Transfemoral TAVR procedure with 23mm valve. Surgeon: Alirio Hudson M.D. Cathode Maker: Danny CULP Procedure: The patient was taken to the cathode maker. The patient had monitored anesthesia care. 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 [facility] [place] [id number] STRUCTURAL HEART DISEASE CONSULTATION NOTE PRIMARY CARE [...] who had been referred for possible TAVR sxydt-bj-ksvif evaluation. Her primary symptoms are of dyspnea [...] otherwise negative. Ms. Thacker is originally from [place]. 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 PROBLEM LIST: Patient Active Problem List Diagnosis Symptomatic severe aortic stenosis with low ejection fraction [facility] [facility] 11/09/2022 Heart failure with reduced [...] hour(s)) Lactate, whole blood, send to lab ([facility]) Result Value Ref Range Lactate WB 1.8 [...] leads Confirmed by MD Harshil, Enrique Bell ([id number]) on 05/10/2023 8:11:46 AM Assessment and Plan: [...] Antelmo Sharma MD Structural Heart Disease Pager [phone] * Plan of Care - ArletSarahi arnold RN - 05/10/2023 3:55 AM Brionna LYLE Note and Care Plan Sarahi Nice RN assumed care of pt at time of their arrival to room 362 from [facility]. Pt voices shortness of breath at [...] listening utilized Taken 05/08/20231999 by Alivia Kauffman hand rigger/Support System Care: self-care encouraged support provided Problem: [...] Manage Obstructive Sleep Apnea Flowsheets (Taken 05/09/2023 6159) NPPV/CPAP Maintenance: home PAP equipment/settings used * Initial Assessments - Alie Bradshaw RN - 05/09/2023 3:42 PM EDT Office of Care Management Initial Assessment Alie Bradshaw RN reviewed record and discussed patient with Care Team. Source of Information: Team, bedside nurse, medical record, and Patient Introduced self/reviewed role; services accepted. Admitted From: Transfer from another hospital Location: admitted from [facility] Reason for Hospitalization: Critical aortic stenosis, causing symptoms Past medical History: Past Medical History: Diagnosis Date Anemia Hospitalizations Within the Past 30 Days: no previous admission in last 30 days Current Decision-Making Capacity: Self If AD's have not been completed the following surrogate would be surrogate decision maker per [place] surrogate decision making law. (Only good for 180 days) Any patient receiving care in [place] must abide by [place] law. The hierarchy for surrogate decision making [...] (i) The agent with financial power of collar fuser or a conservator appointed in accordance with [...] DME: none Home Address confirmed as: [address] [address] Social & Family Supports: All names listed [...] Type: *No Product type* / Secondary Insurance: [employer] [facility] [place] ONLY if patient has Medicare A&B - Does this patient have secondary insurance?: Yes ; Prescription Coverage: Yes Preferred Pharmacy: updated to [facility] [place] Status: Patient is a : No Primary Care Provider confirmed: Magdalena Acosta MD [phone] Patient/Caregiver Goals of Treatment: Potential Needs for [...] transition of care planning. Alie Bradshaw RN, Pager-[phone] * Plan of Care - Emily Lucero RN - 05/08/2023 2:54 PM EDT OUTCOME EVALUATION NOTE: OUTCOME SUMMARY: Pt arrived from [facility]. A&O, no c/o pain or SOB. Heparin [...] 11:30 AM EST Office [place] [address] Magdalena Peralta MD [facility] [place] [address] 03/01/2025 4:15 PM EDT Office Visit Dermatology at [address] [place] [id number] Marek Bonilla MD [address] [facility] [place] [address] Scheduled Referrals Name Type Priority Associated Diagnoses [...] Heart Cath W/Inj L Ventriculography, Img S&I ([id number]) 05/12/2023 7:37 AM EDT Aortic valve stenosis, [...] DOPP (07/08/2023 12:15 PM EST) EF 20 [employer] SYSTEM Anatomical Region Laterality Modality Cardiac Other 07/08/2023 10:3 1 AM EST Narrative 07/08/2023 12:26 PM EST 1 [place] [address] ? Echocardiogram Report Name: PURNIMA THACKER ?Study Date: 07/08/2023 10:31 AMBP: 118/60 mmHg ? Patient Location: : 1955 ? Height: 155 cm ? Account: [id number] Age: 67 yrs ? Weight: 74 kg Gender: Female ?BSA: 1.7 m2 Ordering Physician: ALIRIO HUDSON Referring Physician: VINOD JUÁREZ Performed By: Felicia Norris RODOLFO Reason For Study: S/P TAVR Exam Location: [facility]. Interpretation Summary Left ventricular systolic function [...] no significant change (post-procedure). Procedure Limited - 41644. Doppler - 40373. Color Doppler - 40079. Satisfactory quality. This study is limited because [...] Procedure Note Lee Kincaid MD - 07/08/[address] [place] [address] Echocardiogram Report Name: PURNIMA THACKER Study Date: 0:31 AMBP: 118/60 mmHg Patient Location: : 1955 Height: 155 cm Account: [id number] Age: 67 yrs Weight: 74 kg Gender: Female BSA: 1.7 m2 Ordering Physician: ALIRIO HUDSON Referring Physician: VINOD JUÁREZ Performed By: Felicia Norris RDCS Reason For Study: S/P TAVR Exam Location: [facility]. Interpretation Summary Left ventricular systolic function [...] is nosignificant change (post-procedure). Procedure Limited - 15638. Doppler - 42402. Color Doppler - 02536. Satisfactoryquality. This study is limited because of [...] Glucose Lvl 93 65 - 199 mg/dL [facility] Comment:Diabetes: >=200 mg/d L plus symptoms BUN 19(H) 8 - 18 mg/dL [facility] Creatinine 0.81 0.70 - 1.20 mg/dL [facility] Sodium 142 135 - 145 mmol/L [facility] Potassium 3.8 3.5 - 5.0 mmol/L [facility] Comment: Please note: ??Patients with WBC >100,000 may have falsely elevated Potassium levels. ??For accurate Potassium quantification in these patients send serum separator tube (gold top) for subsequent determinations. ??Contact the Clinical Chemistry Laboratory if there are any questions. Chloride 104 98 - 107 mmol/L [facility] CO2 26 22 - 31 mmol/L [facility] Anion Gap 12 5 - 15 mmol/L [facility] Calcium 10.2 8.5 - 10.5 mg/dL [facility] Total Protein 7.4 6.1 - 8.0 g/dL [facility] Albumin 4.1 3.2 - 5.2 g/dL [facility] AST 24 0 - 30 unit/L [facility] ALT 12 0 - 30 unit/L [facility] Alk Phos 93 35 - 105 unit/L [facility] Total Bilirubin 0.3 0.2 - 1.3 mg/dL [facility] Estimated GFR 80 >=60 mL/min/1. 73 m?? [facility] Comment: This patient's estimated [...] Lab Alirio Hudson MD CHEMISTRY ORDERABLE S [facility] [place] [address] * (ABNORMAL) Basic Metabolic Panel (non-fasting) (05/22/2023 3:57 AM EDT) Glucose Lvl 88 65 - 199 mg/dL [facility] Comment:Diabetes: >=200 mg/d L plus symptoms BUN 21(H) 8 - 18 mg/dL [facility] Creatinine 0.69(L) 0.70 - 1.20 mg/dL [facility] Sodium 136 135 - 145 mmol/L [facility] Potassium 3.6 3.5 - 5.0 mmol/L [facility] Comment: Please note: ??Patients with WBC >100,000 may have falsely elevated Potassium levels. ??For accurate Potassium quantification in these patients send serum separator tube (gold top) for subsequent determinations. ??Contact the Clinical Chemistry Laboratory if there are any questions. Chloride 102 98 - 107 mmol/L [facility] CO2 23 22 - 31 mmol/L [facility] Anion Gap 11 5 - 15 mmol/L [facility] Calcium 8.6 8.5 - 10.5 mg/dL [facility] Estimated GFR 95 >=60 mL/min/1. 73 m?? [facility] Comment: This patient's estimated [...] Agency Comment Spec In Lab Mara Maggie LEMAN CHEMISTRY ORDERABL ES [facility] [place] [address] * (ABNORMAL) Basic Metabolic Panel (non-fasting) (05/21/2023 5:06 AM EDT) Glucose Lvl 87 65 - 199 mg/dL [facility] Comment:Diabetes: >=200 mg/d L plus symptoms BUN 25(H) 8 - 18 mg/dL [facility] Creatinine 0.84 0.70 - 1.20 mg/dL [facility] Sodium 136 135 - 145 mmol/L [facility] Potassium 3.6 3.5 - 5.0 mmol/L [facility] Comment: Please note: ??Patients with WBC >100,000 may have falsely elevated Potassium levels. ??For accurate Potassium quantification in these patients send serum separator tube (gold top) for subsequent determinations. ??Contact the Clinical Chemistry Laboratory if there are any questions. Chloride 102 98 - 107 mmol/L [facility] CO2 26 22 - 31 mmol/L [facility] Anion Gap 8 5 - 15 mmol/L [facility] Calcium 8.9 8.5 - 10.5 mg/dL [facility] Estimated GFR 76 >=60 mL/min/1. 73 m?? [facility] Comment: This patient's estimated [...] Agency Comment Spec In Lab Mara Maggie RESOURCE ANALYST CHEMISTRY ORDERABL ES [facility] [place] [address] * Lavender Tube HOLD (05/20/2023 2:52 AM EDT) Pathologist [facility] Lavwilfred Hold Sample in lab. [facility] Blood Venous Draw / Unknown 05/20/2023 2:52 AM EDT 05/20/2023 3:04 AM EDT Mara Serrano RESOURCE ANALYST HEMATOLOGY ORDERAB LES [facility] [place] [address] * (ABNORMAL) Basic Metabolic Panel (non-fasting) (05/20/2023 2:52 AM EDT) [facility] Glucose Lvl 152 65 - 199 mg/dL [facility] Comment:Diabetes: >=200 mg/d L plus symptoms BUN 33(H) 8 - 18 mg/dL [facility] Creatinine 0.82 0.70 - 1.20 mg/dL [facility] Sodium 137 135 - 145 mmol/L [facility] Potassium 3.7 3.5 - 5.0 mmol/L [facility] Comment: Please note: ??Patients with WBC >100,000 may have falsely elevated Potassium levels. ??For accurate Potassium quantification in these patients send serum separator tube (gold top) for subsequent determinations. ??Contact the Clinical Chemistry Laboratory if there are any questions. Chloride 99 98 - 107 mmol/L [facility] CO2 22 22 - 31 mmol/L [facility] Anion Gap 16(H) 5 - 15 mmol/L [facility] Calcium 9.0 8.5 - 10.5 mg/dL [facility] Estimated GFR 78 >=60 mL/min/1. 73 m?? [facility] Comment: This patient's estimated [...] Agency Comment Spec In Lab Mara Thomasfield RESOURCE ANALYST CHEMISTRY ORDERABL ES Performing Organization Address [facility] Phone Number [facility] [place] [address] * (ABNORMAL) Potassium (05/20/2023 2:52 AM EDT) [facility] Potassium 3.4(L) 3.5 - 5.0 mmol/L [facility] [...] APRN CHEMISTRY ORDERABL ES Performing Organization Address [facility] Phone Number [facility] [place] [address] * XR Chest PA & Lateral (Generic) [...] who have questions please contact the health student career development specialist that requested your imaging first. ? Electronically signed by: Chyna Johnson MD, [facility] ??([phone]), at 05/19/2023 2:19 PM Narrative 05/19/2023 2:19 [...] patients who have questions please contactthe health student career development specialist that requested your imaging first. Alirio Hudson MD IMG DX ORDERABLES * (ABNORMAL) Basic Metabolic Panel (non-fasting) (05/19/2023 5:49 AM EDT) Glucose Lvl 93 65 - 199 mg/dL [facility] Comment:Diabetes: >=200 mg/d L plus symptoms BUN 45(H) 8 - 18 mg/dL [facility] Creatinine 1.02 0.70 - 1.20 mg/dL [facility] Sodium 138 135 - 145 mmol/L [facility] Potassium 3.9 3.5 - 5.0 mmol/L [facility] Comment: Please note: ??Patients with WBC >100,000 may have falsely elevated Potassium levels. ??For accurate Potassium quantification in these patients send serum separator tube (gold top) for subsequent determinations. ??Contact the Clinical Chemistry Laboratory if there are any questions. Chloride 102 98 - 107 mmol/L [facility] CO2 26 22 - 31 mmol/L [facility] Anion Gap 10 5 - 15 mmol/L [facility] Calcium 9.7 8.5 - 10.5 mg/dL [facility] Estimated GFR 60 >=60 mL/min/1. 73 m?? [facility] Comment: This patient's estimated [...] Agency Comment Spec In Lab Mara Serrano RESOURCE ANALYST CHEMISTRY ORDERABL ES [facility] [place] [address] * IR Chest Tube Placement Right (05/18/2023 [...] Kristopher Salgado MD 05/18/2023 Alirio Hudson MD [facility] [place] ORDERABLES * (ABNORMAL) Basic Metabolic Panel (non-fasting) (05/18/2023 2:54 AM EDT) Glucose Lvl 95 65 - 199 mg/dL [facility] Comment:Diabetes: >=200 mg/d L plus symptoms BUN 71(H) 8 - 18 mg/dL [facility] Comment:result rechecked-JSJ Creatinine 1.64(H) 0.70 - 1.20 mg/dL [facility] Comment:result rechecked-JSJ Sodium 137 135 - 145 mmol/L [facility] Potassium 3.7 3.5 - 5.0 mmol/L [facility] Comment: Please note: ??Patients with WBC >100,000 may have falsely elevated Potassium levels. ??For accurate Potassium quantification in these patients send serum separator tube (gold top) for subsequent determinations. ??Contact the Clinical Chemistry Laboratory if there are any questions. Chloride 100 98 - 107 mmol/L [facility] CO2 24 22 - 31 mmol/L [facility] Anion Gap 13 5 - 15 mmol/L [facility] Calcium 9.7 8.5 - 10.5 mg/dL [facility] Estimated GFR 34(L) >=60 mL/min/1. 73 m?? [facility] Comment: This patient's estimated [...] Agency Comment Spec In Lab Mara Serrano RESOURCE ANALYST CHEMISTRY ORDERABL ES [facility] [place] [address] * XR Chest PA & Lateral (Generic) [...] who have questions please contact the health student career development specialist that requested your imaging first. ? Narrative [...] patients who have questions please contactthe health student career development specialist that requested your imaging first. Alirio Hudson MD IMG DX ORDERABLES * (ABNORMAL) Comprehensive metabolic panel (non-fasting) (05/17/2023 4:35 AM EDT) Glucose Lvl 89 65 - 199 mg/dL [facility] Comment:Diabetes: >=200 mg/d L plus symptoms BUN 97(H) 8 - 18 mg/dL [facility] Creatinine 2.97(H) 0.70 - 1.20 mg/dL [facility] Comment:result rechecked-JSJ Sodium 135 135 - 145 mmol/L [facility] Potassium 4.1 3.5 - 5.0 mmol/L [facility] Comment: Please note: ??Patients with WBC >100,000 may have falsely elevated Potassium levels. ??For accurate Potassium quantification in these patients send serum separator tube (gold top) for subsequent determinations. ??Contact the Clinical Chemistry Laboratory if there are any questions. Chloride 97(L) 98 - 107 mmol/L [facility] CO2 22 22 - 31 mmol/L [facility] Anion Gap 16(H) 5 - 15 mmol/L [facility] Calcium 9.6 8.5 - 10.5 mg/dL [facility] Total Protein 6.5 6.1 - 8.0 g/dL [facility] Albumin 3.7 3.2 - 5.2 g/dL [facility] AST 58(H) 0 - 30 unit/L [facility] ALT 66(H) 0 - 30 unit/L [facility] Alk Phos 86 35 - 105 unit/L [facility] Total Bilirubin 0.6 0.2 - 1.3 mg/dL [facility] Estimated GFR 17(L) >=60 mL/min/1. 73 m?? [facility] Comment: This patient's estimated [...] Lab Alirio Hudson MD CHEMISTRY ORDERABLE S [facility] [place] [address] * Potassium (05/16/2023 11:15 PM EDT) Potassium 3.7 3.5 - 5.0 mmol/L [facility] [...] MD CHEMISTRY ORDERABLE S Performing Organization Address City/[facility]/ZIP Co de Phone Number [facility] [place] [address] * Magnesium (05/16/2023 5:22 PM EDT) [facility] Magnesium 0.96 0.69 - 1.07 mmol/L [facility] Blood 05/16/2023 5:22 PM EDT 05/16/2023 5:27 PM EDT Narrative Resulting Agency Comment Spec In Lab Alirio Hudson MD CHEMISTRY ORDERABLE S Performing Organization Address City/[facility]/ZIP Co de Phone Number [facility] [place] [address] * (ABNORMAL) Basic Metabolic Panel (non-fasting) (05/16/2023 5:22 PM EDT) Pathologist [facility] Glucose Lvl 106 65 - 199 mg/dL [facility] Comment:Diabetes: >=200 mg/d L plus symptoms BUN 103(H) 8 - 18 mg/dL [facility] Creatinine 3.91(H) 0.70 - 1.20 mg/dL [facility] Comment:result rechecked-imm Sodium 132(L) 135 - 145 mmol/L [facility] Potassium 3.6 3.5 - 5.0 mmol/L [facility] Comment: Please note: ??Patients with WBC >100,000 may have falsely elevated Potassium levels. ??For accurate Potassium quantification in these patients send serum separator tube (gold top) for subsequent determinations. ??Contact the Clinical Chemistry Laboratory if there are any questions. Chloride 92(L) 98 - 107 mmol/L [facility] CO2 22 22 - 31 mmol/L [facility] Anion Gap 18(H) 5 - 15 mmol/L [facility] Calcium 9.7 8.5 - 10.5 mg/dL [facility] Estimated GFR 12(L) >=60 mL/min/1. 73 m?? [facility] Comment: This patient's estimated [...] Lab Alirio Hudson MD CHEMISTRY ORDERABLE S [facility] [place] [address] * (ABNORMAL) Potassium (05/16/2023 11:43 AM EDT) Potassium 3.3(L) 3.5 - 5.0 mmol/L [facility] [...] Lab Alirio Hudson MD CHEMISTRY ORDERABLE S [facility] [place] [address] * (ABNORMAL) Ferritin (05/16/2023 4:41 AM EDT) Pathologist [facility] Ferritin 1,813(H) 30 - 400 ng/mL [facility] Comment: Pediatric reference ranges not verified at [facility], interpret with caution. Reference ranges for females greater than 50 years of age approach values for men, i.e., 30-400 ng/mL. Blood 05/16/2023 4:41 AM EDT 05/16/2023 4:54 AM EDT Narrative Resulting Agency Comment Spec In Lab Kristopher Ayoub MD CHEMISTRY ORDERABLES [facility] [place] [address] * (ABNORMAL) PTH (05/16/2023 4:41 AM EDT) [facility] PTH 120(H) 15 - 65 pg/mL [facility] Blood 05/16/2023 4:41 AM EDT 05/16/2023 4:54 AM EDT Narrative Resulting Agency Comment Spec In Lab Kristopher Ayoub MD CHEMISTRY ORDERABLES [facility] [place] [address] * Vitamin D, 25-Hydroxy (05/16/2023 4:41 AM EDT) 25-OH Vit D Total 33 21 - 100 ng/mL [facility] 25-OH Vit D Interp Sufficient [facility] Blood 05/16/2023 4:41 AM EDT 05/16/2023 4:54 AM EDT Narrative Resulting Agency Comment Spec In Lab Kristopher Ayoub MD CHEMISTRY ORDERABLES [facility] [place] [address] * (ABNORMAL) Blood Gas Venous ([facility]) (05/16/2023 4:22 AM EDT) pH Mike 7.41 7.32 - 7.42 [facility] pCO2 Mike 32(L) 41 - 51 mmHg [facility] pO2 Mike 73(H) 25 - 40 mmHg [facility] HCO3 Mike 19.6 mmol/L [facility] BE Mike -5.1 mmol/L [facility] Hgb Blood Gas 9.7(L) 11.7 - 15.5 g/dL [facility] O2HB Mike 92.8 % [facility] COHB Mike 0.1 % [facility] Comment: Nonsmokers: 0.5-1.5% COHB Smokers: Variable, but usually less than 10% Toxic: 20-30% COHB Lethal: Greater than 60% COHB METHB Mike 0.3 <=1.5 % [facility] Na Whole Blood 130(L) 135 - 145 mmol/L [facility] K Whole Blood 3.7 3.5 - 5.0 mmol/L [facility] Comment: Please note: Patients with WBC >100,000 may have falsely elevated Potassium levels. Contact the Clinical Chemistry Laboratory if there are any questions. ICa Whole Blood 1.15 1.15 - 1.33 mmol/L [facility] Comment: Note: ??Total bilirubin higher than 20 mg/dL may lead to falsely low ionized calcium. CL Whole Blood 95(L) 98 - 107 mmol/L [facility] Gluc Whole Bld 82 65 - 199 mg/dL [facility] Comment:Diabetes: >=200 mg/d L plus symptoms Lactate WB 1.1 0.5 - 2.2 mmol/L [facility] BGas Source Venous [facility] Blood Venous Draw / Unknown 05/16/2023 4:22 AM EDT 05/16/2023 4:31 AM EDT Narrative Resulting Agency Comment Spec In Lab Bonita TOBAR CHEMISTRY ORDERABLES Performing Organization Address City/State/[facility] Co de Phone Number [facility] [place] [address] * (ABNORMAL) Differential, Automated (05/16/2023 4:20 AM EDT) Neutrophils % 84.1 % [facility] Neutr Abs (ANC) 6.22(H) 1.70 - 6.10 x10(3)/ L [facility] Lymphocytes % 5.8 % [facility] Lymphocytes Abs 0.4(L) 0.9 - 3.2 x10(3)/[facility] Monocytes % 8.8 % [facility] Monocyte Abs 0.6 0.3 - 0.9 x10(3)/[facility] Eosinophils % 0.4 % [facility] Eosinophils Abs 0.0 0.0 - 0.4 x10(3)/[facility] Basophils % 0.0 % [facility] Basophils Abs 0.0 0.0 - 0.1 x10(3)/ L [facility] Immature Gran % 0.90 % [facility] Comment: Immature granulocytes(IG's)percentage and absolute count will include metamyelocytes, myelocytes, and promyelocytes. Blood smears from CBCs yielding IG's will be scanned manually for concordance. If this scan disagrees with the automated IG or if promyelocytes are noted, a manual differential will be performed. Amanda Gran Abs 0.07(H) 0.00 - 0.04 x10(3)/ L [facility] Blood 05/16/2023 4:20 AM EDT 05/16/2023 4:29 AM EDT Narrative Resulting Agency Comment Spec In Lab James Agustin MD HEMATOLOGY ORDER JODIE [facility] [place] [address] * (ABNORMAL) Hemogram (05/16/2023 4:20 AM EDT) WBC 7.4 4.0 - 9.5 x10(3)/[facility] RBC 2.40(L) 4.00 - 5.21 x10(6)/[facility] Hemoglobin 7.8(L) 11.7 - 15.5 g/dL [facility] Hematocrit 22.5(L) 35.7 - 45.8 % [facility] MCV 93.8 82.6 - 94.4 [facility] MCH 32.5(H) 27.1 - 32.0 pg [facility] MCHC 34.7 31.7 - 35.0 g/dL [facility] Platelets 120(L) 145 - 357 x10(3)/[facility] RDWSD 42.9 37.0 - 46.0 [facility] RDWCV 12.9 11.5 - 14.1 % [facility] MPV 11.3 7.6 - 12.9 [facility] nRBC % Auto 0.7 % [facility] nRBC Abs Auto 0.050(H) 0.000 - 0.000 x10(3)/[facility] LABORATORY Blood 05/16/2023 4:20 AM EDT 05/16/2023 4:29 AM EDT Narrative Resulting Agency Comment Spec In Lab James Agustin MD HEMATOLOGY ORDER JODIE [facility] [place] [address] * (ABNORMAL) Basic Metabolic Panel (non-fasting) (05/16/2023 4:20 AM EDT) Glucose Lvl 89 65 - 199 mg/dL [facility] Comment:Diabetes: >=200 mg/d L plus symptoms BUN 108(H) 8 - 18 mg/dL [facility] Creatinine 4.74(H) 0.70 - 1.20 mg/dL [facility] Comment:result rechecked-OLIVA Sodium 132(L) 135 - 145 mmol/L [facility] Potassium 3.9 3.5 - 5.0 mmol/L [facility] Comment: Please note: ??Patients with WBC >100,000 may have falsely elevated Potassium levels. ??For accurate Potassium quantification in these patients send serum separator tube (gold top) for subsequent determinations. ??Contact the Clinical Chemistry Laboratory if there are any questions. Chloride 95(L) 98 - 107 mmol/L [facility] CO2 18(L) 22 - 31 mmol/L [facility] Anion Gap 19(H) 5 - 15 mmol/L [facility] Calcium 9.2 8.5 - 10.5 mg/dL [facility] Estimated GFR 10(L) >=60 mL/min/1. 73 m?? [facility] Comment: This patient's estimated [...] MD CHEMISTRY ORDERABLE S Performing Organization Address City/[facility]/ZIP Co de Phone Number [facility] [place] [address] * (ABNORMAL) Iron and TIBC (05/16/2023 4:20 AM EDT) [facility] Iron 31 30 - 150 mcg/dL [facility] TIBC 259 250 - 450 mcg/dL [facility] Iron Saturation 12(L) 20 - 50 % [facility] Blood 05/16/2023 4:20 AM EDT 05/16/2023 4:29 AM EDT Narrative Resulting Agency Comment Spec In Lab Kristopher Ayoub MD CHEMISTRY ORDERABLES Performing Organization Address [facility] Co de Phone Number [facility] [place] [address] * (ABNORMAL) Basic Metabolic Panel (non-fasting) (05/15/2023 12:50 AM EDT) [facility] Glucose Lvl 101 65 - 199 mg/dL [facility] Comment:Diabetes: >=200 mg/d L plus symptoms BUN 109(H) 8 - 18 mg/dL [facility] Creatinine 5.62(H) 0.70 - 1.20 mg/dL [facility] Comment:result rechecked-KS Sodium 131(L) 135 - 145 mmol/L [facility] Comment:result rechecked-KS Potassium 3.7 3.5 - 5.0 mmol/L [facility] Comment: result rechecked-KS Please note: ??Patients with WBC >100,000 may have falsely elevated Potassium levels. ??For accurate Potassium quantification in these patients send serum separator tube (gold top) for subsequent determinations. ??Contact the Clinical Chemistry Laboratory if there are any questions. Chloride 92(L) 98 - 107 mmol/L [facility] Comment:result rechecked-KS CO2 18(L) 22 - 31 mmol/L [facility] Comment:result rechecked-KS Anion Gap 21(H) 5 - 15 mmol/L [facility] Calcium 8.9 8.5 - 10.5 mg/dL [facility] Estimated GFR 8(L) >=60 mL/min/1. 73 m?? [facility] Comment: This patient's estimated [...] Lab Alirio Hudson MD CHEMISTRY ORDERABLE S [facility] [place] [address] * (ABNORMAL) Hemogram (05/15/2023 12:50 AM EDT) WBC 9.1 4.0 - 9.5 x10(3)/[facility] LABORATORY RBC 2.19(L) 4.00 - 5.21 x10(6)/[facility]ORATORY Hemoglobin 7.2(L) 11.7 - 15.5 g/dL [facility] Hematocrit 20.6(L) 35.7 - 45.8 % [facility] MCV 94.1 82.6 - 94.4 fL [facility] MCH 32.9(H) 27.1 - 32.0 pg [facility] MCHC 35.0 31.7 - 35.0 g/dL [facility] Platelets 109(L) 145 - 357 x10(3)/[facility] LABORATORY RDWSD 43.6 37.0 - 46.0 fL [facility] RDWCV 12.9 11.5 - 14.1 % [facility] MPV 10.4 7.6 - 12.9 fL [facility] nRBC % Auto 2.1 % [facility] nRBC Abs Auto 0.190(H) 0.000 - 0.000 x10(3)/[facility] LABORATORY Blood 05/15/2023 12:5 0 AM EDT 05/15/2023 12:52 AM EDT Narrative Resulting Agency Comment Spec In Lab Alirio Hudson MD HEMATOLOGY ORDERABL ES Performing Organization Address City/State/[facility] Co de Phone Number [facility] [place] [address] * (ABNORMAL) BLOOD GAS 2 VENOUS (05/15/2023 12:49 AM EDT) pH Mike 7.33 7.32 - 7.42 [facility] pCO2 Mike 37(L) 41 - 51 mmHg [facility] pO2 Mike 34 25 - 40 mmHg [facility] HCO3 Mike 19.1 mmol/L [facility] BE Mike -6.8 mmol/L [facility] Hgb Blood Gas 10.8(L) 11.7 - 15.5 g/dL [facility] O2HB Mike 58.1 % [facility] COHB Mike 0.3 % [facility] Comment: Nonsmokers: 0.5-1.5% COHB Smokers: Variable, but usually less than 10% Toxic: 20-30% COHB Lethal: Greater than 60% COHB METHB Mike 0.6 <=1.5 % [facility] Na Whole Blood 136 135 - 145 mmol/L [facility] K Whole Blood 3.7 3.5 - 5.0 mmol/L [facility] Comment: Please note: Patients with WBC >100,000 may have falsely elevated Potassium levels. Contact the Clinical Chemistry Laboratory if there are any questions. ICa Whole Blood 1.12(L) 1.15 - 1.33 mmol/L [facility] Comment: Note: ??Total bilirubin higher than 20 mg/dL may lead to falsely low ionized calcium. CL Whole Blood 95(L) 98 - 107 mmol/L [facility] Gluc Whole Bld 101 65 - 199 mg/dL [facility] Comment:Diabetes: >=200 mg/d L plus symptoms Lactate WB 1.3 0.5 - 2.2 mmol/L [facility] Flow Mike 1.0 LPM [facility] BGas Source Venous [facility] Blood 05/15/2023 12:4 9 AM EDT 05/15/2023 12:49 AM EDT Alirio Hudson MD CHEMISTRY ORDERABLE S [facility] [place] [address] * US Retroperitoneal Complete (05/14/2023 3:53 PM [...] who have questions, please contact the health student career development specialist that requested your imaging first. ? Hayden Robledo, Staff Physician Electronically Signed Final Report ?? 05/14/2023 04:39 pm Narrative 05/14/2023 4:39 PM EDT Renal ? (Signed Final 05/14/2023 04:39 pm) PATIENT INFO: ID #: ? [id number] ?: ??[birth year] (67 yrs)(F) Name: ? PURNIMA THACKER ?Visit Date: 05/14/2023 03:44 pm PERFORMED BY: Attending: ?Meena CULP, Hayden Stafford Resident: ? Anand Camejo MD Performed By: ? Consuelo Tello RDMS Referred By: ?ALIRIO HUDSON Location: ? [place] SERVICE(S) PROVIDED: URETRO - Retroperitoneal Complete - [id number] ? [id number] INDICATIONS: [facility]ANS COMPARISON: CT: Abdomen/Pelvis 05/11/23 RIGHT [...] 05/14/2023 04:39 pm) PATIENT INFO: ID #: [id number] : 55 (67 yrs)(F) Name: PURNIMA THACKER Visit Date: 05/14/2023 03:44 pm PERFORMED BY: Attending: Hayden Robledo MD Resident: Anand Camjeo MD Performed By: Consuelo Tello RDMS Referred By: ALIRIO HUDSON Location: [place] SERVICE(S) PROVIDED: URETRO - Retroperitoneal Complete - [id number] INDICATIONS: EVANS COMPARISON: CT: Abdomen/Pelvis 05/11/23 RIGHT [...] who have questions, please contact the health student career development specialist that requested your imaging first. Hayden Robledo, Staff Physician Electronically Signed Final Report 05/14/2023 04:39 pm Alirio Hudson MD IMG US GEN ORDERABL ES * CK (05/14/2023 3:17 PM EDT) CK, Total 123 0 - 160 unit/L [facility] Blood 05/14/2023 3:17 PM EDT 05/14/2023 3:31 PM EDT Narrative Resulting Agency Comment Spec In Lab Alirio Hudson MD CHEMISTRY ORDERABLE S Performing Organization Address City/[facility]/ZIP Co de Phone Number [facility] [place] [address] * (ABNORMAL) Uric acid (05/14/2023 3:17 PM EDT) Uric Acid 14.9(H) 2.5 - 6.5 mg/dL [facility] Blood 05/14/2023 3:17 PM EDT 05/14/2023 3:31 PM EDT Narrative Resulting Agency Comment Spec In Lab Alirio Hudson MD CHEMISTRY ORDERABLE S Performing Organization Address City/[facility]/ZIP Co de Phone Number [facility] [place] [address] * (ABNORMAL) Osmolality (05/14/2023 3:17 PM EDT) Osmolality 311(H) 275 - 295 mOsm/kg [facility] Blood 05/14/2023 3:17 PM EDT 05/14/2023 3:31 PM EDT Narrative Resulting Agency Comment Spec In Lab Alirio Hudson MD CHEMISTRY ORDERABLE S Performing Organization Address City/[facility]/ZIP Co de Phone Number [facility] [place] [address] * (ABNORMAL) Differential, Automated (05/14/2023 1:10 AM EDT) Neutrophils % 87.2 % [facility] Neutr Abs (ANC) 9.74(H) 1.70 - 6.10 x10(3)/[facility] LABORATORY Lymphocytes % 3.9 % [facility] Lymphocytes Abs 0.4(L) 0.9 - 3.2 x10(3)/[facility] LABORATORY Monocytes % 7.9 % [facility] Monocyte Abs 0.9 0.3 - 0.9 x10(3)/[facility] LABORATORY Eosinophils % 0.0 % [facility] Eosinophils Abs 0.0 0.0 - 0.4 x10(3)/[facility] LABORATORY Basophils % 0.1 % [facility] Basophils Abs 0.0 0.0 - 0.1 x10(3)/[facility] LABORATORY Immature Gran % 0.90 % [facility] Comment: Immature granulocytes(IG's)percentage and absolute count will include metamyelocytes, myelocytes, and promyelocytes. Blood smears from CBCs yielding IG's will be scanned manually for concordance. If this scan disagrees with the automated IG or if promyelocytes are noted, a manual differential will be performed. Amanda Gran Abs 0.10(H) 0.00 - 0.04 x10(3)/[facility] LABORATORY Blood 05/14/2023 1:10 AM EDT 05/14/2023 1:24 AM EDT Narrative Resulting Agency Comment Spec In Lab Bonita TOBAR HEMATOLOGY ORDERABLE S [facility] [place] [address] * (ABNORMAL) Hemogram (05/14/2023 1:10 AM EDT) WBC 11.2(H) 4.0 - 9.5 x10(3)/[facility] LABORATORY RBC 2.19(L) 4.00 - 5.21 x10(6)/[facility] LABORATORY Hemoglobin 7.2(L) 11.7 - 15.5 g/dL [facility] Hematocrit 20.3(L) 35.7 - 45.8 % [facility] MCV 92.7 82.6 - 94.4 fL [facility] MCH 32.9(H) 27.1 - 32.0 pg [facility] MCHC 35.5(H) 31.7 - 35.0 g/dL [facility] Platelets 112(L) 145 - 357 x10(3)/[facility] LABORATORY RDWSD 41.4 37.0 - 46.0 [facility]ORY RDWCV 12.5 11.5 - 14.1 % [facility] MPV 10.4 7.6 - 12.9 [facility] nRBC % Auto 1.5 % [facility] nRBC Abs Auto 0.170(H) 0.000 - 0.000 x10(3)/[facility] LABORATORY Blood 05/14/2023 1:10 AM EDT 05/14/2023 1:24 AM EDT Narrative Resulting Agency Comment Spec In Lab Bonita TOBAR HEMATOLOGY ORDERABLE S [facility] [place] [address] * (ABNORMAL) Comprehensive metabolic panel (non-fasting) (05/14/2023 1:10 AM EDT) Glucose Lvl 120 65 - 199 mg/dL [facility] Comment:Diabetes: >=200 mg/d L plus symptoms BUN 98(H) 8 - 18 mg/dL [facility] Creatinine 4.80(H) 0.70 - 1.20 mg/dL [facility] Comment:result rechecked-ssc Sodium 132(L) 135 - 145 mmol/L [facility] Potassium 4.1 3.5 - 5.0 mmol/L [facility] Comment: Please note: ??Patients with WBC >100,000 may have falsely elevated Potassium levels. ??For accurate Potassium quantification in these patients send serum separator tube (gold top) for subsequent determinations. ??Contact the Clinical Chemistry Laboratory if there are any questions. Chloride 94(L) 98 - 107 mmol/L [facility] CO2 18(L) 22 - 31 mmol/L [facility] Anion Gap 20(H) 5 - 15 mmol/L [facility] Calcium 8.5 8.5 - 10.5 mg/dL [facility] Total Protein 5.8(L) 6.1 - 8.0 g/dL [facility] Albumin 3.6 3.2 - 5.2 g/dL [facility] AST 319(H) 0 - 30 unit/L [facility] ALT 437(H) 0 - 30 unit/L [facility] Alk Phos 86 35 - 105 unit/L [facility] Total Bilirubin 0.4 0.2 - 1.3 mg/dL [facility] Estimated GFR 9(L) >=60 mL/min/1. 73 m?? [facility] Comment: This patient's estimated [...] MD CHEMISTRY ORDERABLE S Performing Organization Address City/[facility]/ZIP Co de Phone Number [facility] [place] [address] * APTT (05/13/2023 10:15 AM EDT) PTT 27 25 - 37 sec [facility] Comment: The PTT is [...] ORDERABL ES Performing Organization Address [facility] Co de Phone Number [facility] [place] [address] * (ABNORMAL) Prothrombin Time (05/13/2023 10:15 AM EDT) PT 14.6(H) 9.4 - 12.5 sec [facility] INR 1.3 [facility] [...] ORDERABL ES Performing Organization Address [facility]/ZIP Co de Phone Number [facility] [place] [address] * EKG 12 Lead (05/13/2023 9:22 AM EDT) Ventricular rate 92 BPM MUSE SYSTEM Atrial Rate 92 BPM MUSE SYSTEM P-R Interval 140 ms MUSE SYSTEM QRS Duration 104 ms MUSE SYSTEM Q-T Interval 384 ms MUSE SYSTEM QTC Calculated (Bezet) 474 ms MUSE SYSTEM Calculated P [place] 33 degrees MUSE SYSTEM Calculated R [place] 41 degrees MUSE SYSTEM Calculated T [place] -35 degrees MUSE SYSTEM INTERPRETATION Sinus rhythm with frequent Premature ventricular complexes Septal infarct , age undetermined ST & T wave abnormality, consider lateral ischemia Abnormal ECG When compared with ECG of 12-MAY-2023 10:10, Premature ventricular complexes are now Present I personally reviewed the tracing and edited the fellows interpretation Confirmed by fellow MD Anitha, Carissa ([id number]) on 05/13/2023 3:25:30 PM Confirmed by Maxx Best ([id number]) on 05/13/2023 8:30:56 PM MUSE SYSTEM 05/13/2023 9:22 AM EDT 05/13/2023 8:30 PM EDT Alirio Hudson MD ECG ORDERABLES MUSE SYSTEM * (ABNORMAL) Differential, Automated (05/13/2023 1:15 AM EDT) [facility] Neutrophils % 88.1 % [facility] Neutr Abs (ANC) 7.62(H) 1.70 - 6.10 x10(3)/mc L [facility] Lymphocytes % 3.1 % [facility] Lymphocytes Abs 0.3(L) 0.9 - 3.2 x10(3)/mc L [facility] Monocytes % 7.9 % [facility] Monocyte Abs 0.7 0.3 - 0.9 x10(3)/mc L [facility] Eosinophils % 0.0 % [facility] Eosinophils Abs 0.0 0.0 - 0.4 x10(3)/mc L [facility] Basophils % 0.1 % [facility] Basophils Abs 0.0 0.0 - 0.1 x10(3)/mc L [facility] Immature Gran % 0.80 % [facility] Comment: Immature granulocytes(IG's)percentage and absolute count will include metamyelocytes, myelocytes, and promyelocytes. Blood smears from CBCs yielding IG's will be scanned manually for concordance. If this scan disagrees with the automated IG or if promyelocytes are noted, a manual differential will be performed. Amanda Gran Abs 0.07(H) 0.00 - 0.04 x10(3)/[facility] LABORATORY Blood 05/13/2023 1:15 AM EDT 05/13/2023 1:29 AM EDT Narrative Resulting Agency Comment Spec In Lab Lorri TOBAR HEMATOLOGY ORDERABLE S [facility] [place] [address] * (ABNORMAL) Hemogram (05/13/2023 1:15 AM EDT) WBC 8.6 4.0 - 9.5 x10(3)/[facility] LABORATORY RBC 2.37(L) 4.00 - 5.21 x10(6)/[facility] LABORATORY Hemoglobin 7.8(L) 11.7 - 15.5 g/dL [facility] Hematocrit 22.2(L) 35.7 - 45.8 % [facility] MCV 93.7 82.6 - 94.4 fL [facility] MCH 32.9(H) 27.1 - 32.0 pg [facility] MCHC 35.1(H) 31.7 - 35.0 g/dL [facility] Platelets 130(L) 145 - 357 x10(3)/[facility] RDWSD 41.7 37.0 - 46.0 [facility]ORATORY RDWCV 12.5 11.5 - 14.1 % [facility] MPV 10.2 7.6 - 12.9 [facility] nRBC % Auto 0.5 % [facility] nRBC Abs Auto 0.040(H) 0.000 - 0.000 x10(3)/mcL [facility] Blood 05/13/2023 1:15 AM EDT 05/13/2023 1:29 AM EDT Narrative Resulting Agency Comment Spec In Lab Lorri TOBAR HEMATOLOGY ORDERABLE S Performing Organization Address City/[facility]/ZIP Co de Phone Number [facility] [place] [address] * (ABNORMAL) Hepatic Function Panel (05/13/2023 1:15 AM EDT) Total Protein 5.5(L) 6.1 - 8.0 g/dL [facility] Albumin 3.0(L) 3.2 - 5.2 g/dL [facility] AST 792(H) 0 - 30 unit/L [facility] ALT 903(H) 0 - 30 unit/L [facility] Alk Phos 85 35 - 105 unit/L [facility] Total Bilirubin 0.5 0.2 - 1.3 mg/dL [facility] Bili, Direct 0.3 0.0 - 0.3 mg/dL [facility] Blood 05/13/2023 1:15 AM EDT 05/13/2023 1:29 AM EDT Narrative Resulting Agency Comment Spec In Lab Alirio Hudson MD CHEMISTRY ORDERABLE S Performing Organization Address City/[facility]/ZIP Co de Phone Number [facility] [place] [address] * (ABNORMAL) Basic Metabolic Panel (non-fasting) (05/13/2023 1:15 AM EDT) Glucose Lvl 107 65 - 199 mg/dL [facility] Comment:Diabetes: >=200 mg/d L plus symptoms BUN 82(H) 8 - 18 mg/dL [facility] Creatinine 3.15(H) 0.70 - 1.20 mg/dL [facility] Comment:result rechecked-JSJ Sodium 132(L) 135 - 145 mmol/L [facility] Potassium 3.8 3.5 - 5.0 mmol/L [facility] Comment: Please note: ??Patients with WBC >100,000 may have falsely elevated Potassium levels. ??For accurate Potassium quantification in these patients send serum separator tube (gold top) for subsequent determinations. ??Contact the Clinical Chemistry Laboratory if there are any questions. Chloride 95(L) 98 - 107 mmol/L [facility] CO2 20(L) 22 - 31 mmol/L [facility] Anion Gap 17(H) 5 - 15 mmol/L [facility] Calcium 8.3(L) 8.5 - 10.5 mg/dL [facility] Estimated GFR 16(L) >=60 mL/min/1. 73 m?? [facility] Comment: This patient's estimated [...] Lab Alirio Hudson MD CHEMISTRY ORDERABLE S [facility] [place] [address] * (ABNORMAL) BLOOD GAS 2 ARTERIAL (05/12/2023 3:57 PM EDT) pH Art 7.39 7.35 - 7.45 [facility] pCO2 Art 33(L) 35 - 45 mmHg [facility] pO2 Art 101 85 - 104 mmHg [facility] HCO3 Art 19.5(L) 20.0 - 26.0 mmol/L [facility] [place] Art -5.5(L) -3.0 - 3.0 mmol/L [facility] Hgb Blood Gas 9.8(L) 11.7 - 15.5 g/dL [facility] O2HB Art 95.2 94.0 - 97.0 % [facility] COHB Art 0.2 % [...] Whole Blood 1.05(L) 1.15 - 1.33 mmol/L [facility] Comment: Note: ??Total bilirubin higher than 20 mg/dL may lead to falsely low ionized calcium. CL Whole Blood 96(L) 98 - 107 mmol/L [facility] Gluc Whole Bld 178 65 - 199 mg/dL [facility] Comment:Diabetes: >=200 mg/d L plus symptoms. Lactate WB 1.5 0.5 - 2.2 mmol/L [facility] FIO2 Art 40 % [facility] PF Ratio Art 252 [facility] Blood 05/12/2023 3:57 PM EDT 05/12/2023 3:57 PM EDT Alirio Hudson MD CHEMISTRY ORDERABLE S [facility] [place] [address] * (ABNORMAL) Coox2 (05/12/2023 2:25 PM EDT) pO2 Coox 37 mmHg [facility] Hgb Blood Gas 9.5(L) 11.7 - 15.5 g/dL [facility] O2HB Coox 59.9 % [facility] COHB Coox 0.3 % [facility] Comment: Nonsmokers: 0.5-1.5% COHB Smokers: Variable, but usually less than 10% Toxic: 20-30% COHB Lethal: Greater than 60% COHB METHB Coox 0.7 <=1.5 % [facility] Source Coox Mixed Venous [facility] Blood 05/12/2023 2:25 PM EDT 05/12/2023 2:25 PM EDT Alirio Hudson MD CHEMISTRY ORDERABLE S Performing Organization Address City/[facility]/ZIP Co de Phone Number [facility] [place] [address] * (ABNORMAL) BLOOD GAS 2 ARTERIAL (05/12/2023 2:23 PM EDT) pH Art 7.37 7.35 - 7.45 [facility] pCO2 Art 36 35 - 45 mmHg [facility] pO2 Art 102 85 - 104 mmHg [facility] HCO3 Art 20.4 20.0 - 26.0 mmol/L [facility] BE Art -4.8(L) -3.0 - 3.0 mmol/L [facility] Hgb Blood Gas 12.7 11.7 - 15.5 g/dL [facility] O2HB Art 95.4 94.0 - 97.0 % [facility] COHB Art 0.3 % [facility] Comment: Nonsmokers: 0.5-1.5% COHB Smokers: Variable, but usually less than 10% Toxic: 20-30% COHB Lethal: Greater than 60% COHB METHB Art 0.7 <=1.5 % [facility] Na Whole Blood 129(L) 135 - 145 mmol/L [facility] K Whole Blood 3.7 3.5 - 5.0 mmol/L [facility] Comment: Please note: Patients with WBC >100,000 may have falsely elevated Potassium levels. Contact the Clinical Chemistry Laboratory if there are any questions. ICa Whole Blood 1.05(L) 1.15 - 1.33 mmol/L [facility] Comment: Note: ??Total bilirubin higher than 20 mg/dL may lead to falsely low ionized calcium. CL Whole Blood 95(L) 98 - 107 mmol/L [facility] Gluc Whole Bld 168 65 - 199 mg/dL [facility] Comment:Diabetes: >=200 mg/d L plus symptoms. Lactate WB 1.8 0.5 - 2.2 mmol/L [facility] FIO2 Art 40 % [facility] PF Ratio Art 255 [facility] Blood 05/12/2023 2:23 PM EDT 05/12/2023 2:23 PM EDT Alirio Hudson MD CHEMISTRY ORDERABLE S [facility] [place] [id number] * (ABNORMAL) Troponin (05/12/2023 2:05 PM EDT) Troponin-T HS 1,022(H) <=14 ng/L [facility] Comment: This patient's troponin [...] troponin value can be found in the [facility] Test Catalog Troponin - [facility] Test Catalog Reference: Fourth [place] Definition of Myocardial Infarction. Journal of the [place] [employer] 2018;72:7929-1411 Blood 05/12/2023 2:05 PM EDT 05/12/2023 2:14 PM EDT Narrative Resulting Agency Comment Spec In Lab Alirio Hudson MD CHEMISTRY ORDERABLE S Performing Organization Address City/[facility]/ZIP Co de Phone Number [facility] [place] [address] * (ABNORMAL) Hemoglobin (05/12/2023 2:05 PM EDT) Hemoglobin 8.5(L) 11.7 - 15.5 g/dL [facility] Blood 05/12/2023 2:05 PM EDT 05/12/2023 2:14 PM EDT Narrative Resulting Agency Comment Spec In Lab Alirio Hudson MD HEMATOLOGY ORDERABL ES Performing Organization Address City/[facility]/ZIP Co de Phone Number [facility] [place] [address] * Potassium (05/12/2023 2:05 PM EDT) Potassium 3.9 3.5 - 5.0 mmol/L [facility] Lab Alirio Hudson MD CHEMISTRY ORDERABLE S [facility] [place] [address] * (ABNORMAL) BLOOD GAS 2 ARTERIAL (05/12/2023 11:05 AM EDT) pH Art 7.34(L) 7.35 - 7.45 [facility] pCO2 Art 42 35 - 45 mmHg [facility] pO2 Art 73(L) 85 - 104 mmHg [facility] HCO3 Art 22.1 20.0 - 26.0 mmol/L [facility] BE Art -3.6(L) -3.0 - 3.0 mmol/L [facility] Hgb Blood Gas 9.3(L) 11.7 - 15.5 g/dL [facility] O2HB Art 89.3(L) 94.0 - 97.0 % [facility] COHB Art 0.2 % [...] Whole Blood 96(L) 98 - 107 mmol/L [facility] Gluc Whole Bld 152 65 - 199 mg/dL [facility] Comment:Diabetes: >=200 mg/d L plus symptoms. Lactate WB 2.8(H) 0.5 - 2.2 mmol/L [facility] FIO2 Art 40 % [facility] PF Ratio Art 182 [facility] Blood 05/12/2023 11:0 5 AM EDT 05/12/2023 11:05 AM EDT Alirio Hudson MD CHEMISTRY ORDERABLE S Performing Organization Address City/State/[facility] Co de Phone Number [facility] [place] [address] * (ABNORMAL) BLOOD GAS 2 ARTERIAL (05/12/2023 10:14 AM EDT) pH Art 7.18(Criti gabrielle) 7.35 - 7.45 [facility] Comment:Noted by supervisor instrument mechanics. pCO2 Art 45 35 - 45 mmHg [facility] pO2 Art 186(H) 85 - 104 mmHg [facility] HCO3 Art 16.2(L) 20.0 - 26.0 mmol/L [facility] BE Art -12.2(L) -3.0 - 3.0 mmol/L [facility] Hgb Blood Gas 10.0(L) 11.7 - 15.5 g/dL [facility] O2HB Art 97.0 94.0 - 97.0 % [facility] COHB Art 0.2 % [facility] Comment: Nonsmokers: 0.5-1.5% COHB Smokers: Variable, but usually less than 10% Toxic: 20-30% COHB Lethal: Greater than 60% COHB METHB Art 0.9 <=1.5 % [facility] Na Whole Blood 129(L) 135 - 145 mmol/L [facility] K Whole Blood 3.6 3.5 - 5.0 mmol/L [facility] Comment: Please note: Patients with WBC >100,000 may have falsely elevated Potassium levels. Contact the Clinical Chemistry Laboratory if there are any questions. ICa Whole Blood 1.10(L) 1.15 - 1.33 mmol/L [facility] Comment: Note: ??Total bilirubin higher than 20 mg/dL may lead to falsely low ionized calcium. CL Whole Blood 97(L) 98 - 107 mmol/L [facility] Gluc Whole Bld 161 65 - 199 mg/dL [facility] Comment:Diabetes: >=200 mg/d L plus symptoms. Lactate WB 3.3(H) 0.5 - 2.2 mmol/L [facility] FIO2 Art 100 % [facility] PF Ratio Art 186 [facility] Blood 05/12/2023 10:1 4 AM EDT 05/12/2023 10:14 AM EDT Alirio Hudson MD CHEMISTRY ORDERABLE S Performing Organization Address City/State/[facility] Co de Phone Number [facility] [place] [address] * EKG 12 Lead (05/12/2023 10:10 AM EDT) Ventricular rate 116 BPM MUSE SYSTEM Atrial Rate 116 BPM MUSE SYSTEM P-R Interval 158 ms MUSE SYSTEM QRS Duration 114 ms MUSE SYSTEM Q-T Interval 348 ms MUSE SYSTEM QTC Calculated (Bezet) 483 ms MUSE SYSTEM Calculated P [place] 37 degrees MUSE SYSTEM Calculated R [place] 31 degrees MUSE SYSTEM Calculated T [place] -138 degrees MUSE SYSTEM INTERPRETATION Sinus tachycardia [...] interpretation Confirmed by fellow MD Anuja, Jim ([id number]) on 05/12/2023 1:04:20 PM Confirmed by MD Mono, Eleni ([id number]) on 05/12/2023 9:28:34 PM MUSE SYSTEM 05/12/2023 [...] who have questions please contact the health student career development specialist that requested your imaging first. ? Electronically signed by: Chyna Johnson MD, [facility] ??([phone]), at 05/12/2023 10:08 AM Narrative 05/12/2023 10:08 AM EDT EXAMINATION: XR CHEST ONE VIEW CLINICAL HISTORY: Post TAVR TECHNIQUE: 1 view of the chest COMPARISON: Chest radiograph from earlier today FINDINGS: Interval placement of endotracheal tube with tip terminating 2 cm above the shira. Interval placement of enteric tube projecting along the expected course of the esophagus and outside the kpfnn-wp-hdbk. Interval retraction of right IJ approach pulmonary [...] expected course ofthe esophagus and outside the teixq-kn-uyub. Interval retraction of right IJ approach pulmonary [...] patients who have questions please contactthe health student career development specialist that requested your imaging first. Alirio Hudson [...] 1955 ? Height: 154 cm ? Account: [id number] Age: 67 yrs ? Weight: 75 kg Gender: Female ?BSA: 1.7 m2 Ordering Physician: RADHA HOLLINS Referring Physician: RADHA HOLLINS Performed By: Dilma Bee RDCS Reason For Study: Guidance for TAVR procedure Exam Location: [facility]. Interpretation Summary PRE TAVR: There is [...] mL/m2. POST TAVR: Normal function of the lxbkf-mv-oajdk prosthesis. See below for hemodynamic parameters. Slight improvement in left and right ventricular systolic function. LVEF now 20-25%. No pericardial effusion. See report for additional findings. Procedure Limited - 09982. Doppler - 78808. Color Doppler - 46881. Left Ventricle Left ventricle is of normal [...] Date: 307:33 AMBP: 96/63 mmHg Patient Location: [address] : 1955 Height: 154 cm Account: [id number] Age: 67 yrs Weight: 75 kg Gender: Female BSA: 1.7 m2 Ordering Physician: RADHA HOLLINS Referring Physician: RADHA HOLLINS Performed By: Dilma Bee RDCS Reason For Study: Guidance for TAVR procedure Exam Location: [facility]. Interpretation Summary PRE TAVR: There is [...] 28mL/m2. POST TAVR: Normal function of the lfcax-lk-ksksr prosthesis. See belowfor hemodynamic parameters. Slight improvement in left and right ventricularsystolic function. LVEF now 20-25%. No pericardial effusion. See report for additional findings. Procedure Limited - 04055. Doppler - 02587. Color Doppler - 72938. Left Ventricle Left ventricle is of normal [...] Modality Other Narrative 05/12/2023 2:37 PM EDT ?[facility] ? Cardiac Catheterization/Intervention Report ? Patient Name: Kirstie, Purnima M. ? Procedure Date: 05/12/2023 ? A #: [id number] ? Primary Physician: Antelmo Sharma ? Case #: [id number] ? File Name: [id number] ? Catheterization Order Number: [id number] ? [facility] ? Final Report [place], [place] ? Patient Name: ? Purnima Thacker ? ID#: ?[id number] ? : ?1955 ? Procedure Date: ? May 12, 2023 ? Case #: ? [id number] ? Room: ? 6 ? Case Physicians: ?Antelmo Sharma M.D. ?Start: ?08:03 ?Alirio Hudson M.D. ?Admission: ??05/08/2023 ?Lynda Mcgowan M.D. ? Discharge: ??05/22/2023 ?Fellow: ? Kristied Adair Tejeda ? Referring Physician: ??Mario Alberto Chin M.D. ? Procedures: ?* Coronary Angiography ?* Left Heart Catheterization ?* Coronary Stent Insertion ?* Transcatheter Aortic Valve Replacement ?* Vascular Closure Device Deployment ?* Temporary Pacemaker Insertion In Log Loader Helper ?* Endotracheal Intubation By Non-Cath Physician ?* [...] was designated as ASA Class IV. The [facility] clinical ?frailty scale is 4: Vulnerable. [...] ??A premounted 4.00 x 30 mm Nils Nice (MINNA) was ? deployed with a maximum [...] calculated STS risk score was 30.1%. A qcsuw-oc-llioz ?procedure was performed on the pre-existing bioprosthetic stented ?prosthesis. The priority of the aubwk-ii-nwrfl procedure was Elective. ?The procedure was performed [...] Lai 3 Ultra RESILIA 23 mm THV (s/h=[id number]) transcatheter ?valve was inserted using standard technique. [...] to nor was it given in the ?cathode maker. ?Recommended anti-platelet/anti-thrombotic regimen: ?Continue aspirin 81 mg daily for indefinitely. ?These recommendations are made at the time of the intervention. Patient ?and provider preferences or a changing clinical situation may require ?modification of this regimen. Consult [facility] Interventional Cardiology for ?questions. ? Conclusions: ?* [...] regimen. ? Comments: ?Successful right transfemoral TAVR Rjxrm-ej-Ulwna with a 23 mm Lai 3 ?THV. [...] insertion-coronary, access site angiography, ?temporary pacemaker in cathode maker, intubation-non cath physician, vascular ?closure device, transthoracic echo ??and TAVR. Dr. Alirio Hudson M.D. ?performed the left heart catheterization, access site angiography, ?temporary pacemaker in cathode maker, vascular closure device, transthoracic ?echo , TAVR and CPR during cath. Dr. Lynda Keyla Low, M.D. performed the ABG, ?anesthesia and intubation-non cath physician. ? Antelmo Sharma M.D. ? Electronically Signed by: Antelmo Sharma M.D. ? Report Finalized: 05/12/2023 ??14:31 ? Report Last Ammended: 07/01/2023 ??11:30 ? Procedure Note Antelmo Sharma MD - 07/01/2023 [facility] Cardiac Catheterization/Intervention Report Patient Name: Cuauhtemoc Thackerise Arabella Procedure Date: 05/12/2023 A #: [id number] Primary Physician: Antelmo Sharma Case #: [id number] File Name: [id number] Catheterization Order Number: [id number] [facility] FinalReport [place], [place] Patient Name: Purnima Thacker ID#:[id number] :1955 Procedure Date: May 12, 2023 Case #: [id number] Room: 6 Case Physicians: Antelmo Sharma M.D. Start: 08:03 Alirio Hudson M.D. Admission:05/08/2023 Lynda Mcgowan M.D. Discharge:05/22/2023 Fellow: Rebekah Tejeda M.D. Referring Physician: Mario Alberto Chin M.D. Procedures: * Coronary Angiography * Left Heart Catheterization * Coronary Stent Insertion * Transcatheter Aortic Valve Replacement * Vascular Closure Device Deployment * Temporary Pacemaker Insertion In Log Loader Helper * Endotracheal Intubation By Non-Cath Physician * [...] A premounted 4.00 x 30 mm Nils Nice (MINNA) was deployed with a maximum inflation [...] calculated STS risk score was 30.1%. A toddp-oy-kcghv procedure was performed on the pre-existing bioprosthetic stented prosthesis. The priority of the cepzr-pb-ogwkz procedure wasElective. The procedure was performed under Moderate sedation performed byLynda Mcgowan M.D. (see anesthesia report for additional details). Alirio Hudson M.D. participated in the case (see Cardiac Surgery reportfor additional details). The TAVR sheath was a 14 Fr Corona eSheath Introducer and theaccess site was femoral. Rapid ventricular pacing was performed. An Corona Lai 3 Ultra RESILIA 23 mm THV (s/e=[id number])transcatheter valve was inserted using standard technique. The [...] prior to nor was it given inthe cathode maker. Recommended anti-platelet/anti-thrombotic regimen: Continue aspirin 81 mg daily for indefinitely. These recommendations are made at the time of the intervention.Patient and provider preferences or a changing clinical situation mayrequire modification of this regimen. Consult [facility] Interventional Cardiologyfor questions. Conclusions: * Nonobstructive disease [...] this regimen. Comments: Successful right transfemoral TAVR Tptpd-ve-Rxgro with a 23 mmSapien 3 THV. We [...] insertion-coronary, access site angiography, temporary pacemaker in cathode maker, intubation-non cath physician,vascular closure device, transthoracic echo and TAVR. Dr. Alirio Hudson M.D. performed the left heart catheterization, access site angiography, temporary pacemaker in cathode maker, vascular closure device,transthoracic echo , TAVR and [...] POC pH 7.20(Crit ical) 7.35 - 7.45 [facility] Comment:Critical value OK, C C Lab. POC PCO2 42 35 - 45 mmHg [facility] POC PO2 260(H) 85 - 104 mmHg [facility] POC Base Excess -11.0(L) -3.0 - 3.0 mmol/L [facility] POC HCO3 16.7(L) 20.0 - 26.0 mmol/L [facility] POC Sodium 129(L) 135 - 145 mmol/L [facility] POC Potassium 3.8 3.5 - 5.0 mmol/L [facility] POC Ionized Ca 1.12(L) 1.15 - 1.33 mmol/L [facility] POC Hematocrit 23.0(L) 34.0 - 45.0 % [facility] POC Calc Hgb 7.8(L) 11.2 - 15.7 g/dL [facility] Comment:The calculation of h emoglobin from hematocrit assumes a normal MCHC. POC Bgas Loc CC Lab [facility] Blood 05/12/2023 8:50 AM EDT 05/13/2023 12:00 PM EDT Alirio Hudson MD CHEMISTRY ORDERABLE S [facility] [place] [address] * (ABNORMAL) Point of Care Blood Gas Historical (05/12/2023 8:10 AM EDT) POC pH 7.27(Crit ical) 7.35 - 7.45 [facility] Comment:Critical value Yamel KRAUSE Lab. POC PCO2 37 35 - 45 mmHg [facility] POC PO2 29(Critic al) 85 - 104 mmHg [facility] Comment:Critical value Yamel KRAUSE C Lab. POC Base Excess -10.0(L) -3.0 - 3.0 mmol/L [facility] POC HCO3 16.7(L) 20.0 - 26.0 mmol/L [facility] POC Sodium 123(L) 135 - 145 mmol/L [facility] POC Potassium 4.0 3.5 - 5.0 mmol/L [facility] POC Ionized Ca 1.12(L) 1.15 - 1.33 mmol/L [facility] POC Hematocrit 27.0(L) 34.0 - 45.0 % [facility] POC Calc Hgb 9.2(L) 11.2 - 15.7 g/dL [facility] Comment:The calculation of h emoglobin from hematocrit assumes a normal MCHC. POC Bgas Loc CC Lab [facility] Blood 05/12/2023 8:10 AM EDT 05/13/2023 12:00 PM EDT Alirio Hudson MD CHEMISTRY ORDERABLE S Performing Organization Address City/[facility]/ZIP Co de Phone Number [facility] [place] [address] * (ABNORMAL) Lactate, whole blood, send to lab ([facility]) (05/12/2023 7:00 AM EDT) Lactate WB 2.4(H) 0.5 - 2.2 mmol/L [facility] Blood 05/12/2023 7:00 AM EDT 05/12/2023 7:09 AM EDT Narrative Resulting Agency Comment Spec In Lab Radha Hollins MD CHEMISTRY ORDERABL ES Performing Organization Address [facility]/ZIP Co de Phone Number [facility] [place] [address] * (ABNORMAL) Comprehensive metabolic panel (non-fasting) (05/12/2023 6:00 AM EDT) Glucose Lvl 167 65 - 199 mg/dL [facility] Comment:Diabetes: >=200 mg/d L plus symptoms BUN 67(H) 8 - 18 mg/dL [facility] Creatinine 2.01(H) 0.70 - 1.20 mg/dL [facility] Sodium 131(L) 135 - 145 mmol/L [facility] Potassium 4.3 3.5 - 5.0 mmol/L [facility] Comment: Please note: ??Patients with WBC >100,000 may have falsely elevated Potassium levels. ??For accurate Potassium quantification in these patients send serum separator tube (gold top) for subsequent determinations. ??Contact the Clinical Chemistry Laboratory if there are any questions. Chloride 97(L) 98 - 107 mmol/L [facility] CO2 14(L) 22 - 31 mmol/L [facility] Anion Gap 20(H) 5 - 15 mmol/L [facility] Calcium 8.6 8.5 - 10.5 mg/dL [facility] Total Protein 6.3 6.1 - 8.0 g/dL [facility] Albumin 3.5 3.2 - 5.2 g/dL [facility] AST 1,435(H) 0 - 30 unit/L [facility] ALT 1,174(H) 0 - 30 unit/L [facility] Alk Phos 100 35 - 105 unit/L [facility] Total Bilirubin 0.9 0.2 - 1.3 mg/dL [facility] Estimated GFR 27(L) >=60 mL/min/1. 73 m?? [facility] Comment: This patient's estimated [...] Lab Radha Hollins MD CHEMISTRY ORDERABL ES [facility] [place] [address] * (ABNORMAL) Coox2 (05/12/2023 5:08 AM EDT) pO2 Coox 24 mmHg [facility] Hgb Blood Gas 10.4(L) 11.7 - 15.5 g/dL [facility] O2HB Coox 30.7 % [facility] COHB Coox 0.3 % [facility] Comment: Nonsmokers: 0.5-1.5% COHB Smokers: Variable, but usually less than 10% Toxic: 20-30% COHB Lethal: Greater than 60% COHB METHB Coox 0.8 <=1.5 % [facility] Source Coox Mixed Venous [facility] Blood 05/12/2023 5:08 AM EDT 05/12/2023 5:08 AM EDT Radha Hollins MD CHEMISTRY ORDERABL ES Performing Organization Address [facility] de Phone Number [facility] [place] [address] * (ABNORMAL) Coox2 (05/12/2023 3:21 AM EDT) pO2 Coox 25 mmHg [facility] Hgb Blood Gas 10.8(L) 11.7 - 15.5 g/dL [facility] O2HB Coox 32.7 % [facility] COHB Coox 0.3 % [facility] Comment: Nonsmokers: 0.5-1.5% COHB Smokers: Variable, but usually less than 10% Toxic: 20-30% COHB Lethal: Greater than 60% COHB METHB Coox 0.7 <=1.5 % [facility] Source Coox Mixed Venous [facility] Blood 05/12/2023 3:21 AM EDT 05/12/2023 3:21 AM EDT Radha Hollins MD CHEMISTRY ORDERABL ES Performing Organization Address [facility] de Phone Number [facility] [place] [address] * (ABNORMAL) BLOOD GAS 2 ARTERIAL (05/12/2023 3:18 AM EDT) pH Art 7.34(L) 7.35 - 7.45 [facility] pCO2 Art 30(L) 35 - 45 mmHg [facility] pO2 Art 72(L) 85 - 104 mmHg [facility] HCO3 Art 16.0(L) 20.0 - 26.0 mmol/L [facility] BE Art -9.8(L) -3.0 - 3.0 mmol/L [facility] Hgb Blood Gas 11.0(L) 11.7 - 15.5 g/dL [facility] O2HB Art 89.8(L) 94.0 - 97.0 % [facility] [...] Whole Blood 1.12(L) 1.15 - 1.33 mmol/L [facility] Comment: Note: ??Total bilirubin higher than 20 mg/dL may lead to falsely low ionized calcium. CL Whole Blood 100 98 - 107 mmol/L [facility] Gluc Whole Bld 160 65 - 199 mg/dL [facility] Comment:Diabetes: >=200 mg/d L plus symptoms. Lactate WB 2.7(H) 0.5 - 2.2 mmol/L [facility] Flow Art 5.0 LPM [facility] Blood 05/12/2023 3:18 AM EDT 05/12/2023 3:18 AM EDT Radha Hollins MD CHEMISTRY ORDERABL ES Performing Organization Address [facility] Co de Phone Number [facility] [place] [address] * (ABNORMAL) Coox2 (05/12/2023 1:14 AM EDT) pO2 Coox 28 mmHg [facility] Hgb Blood Gas 10.9(L) 11.7 - 15.5 g/dL [facility] O2HB Coox 37.3 % [facility] COHB Coox 0.3 % [facility] Comment: Nonsmokers: 0.5-1.5% COHB Smokers: Variable, but usually less than 10% Toxic: 20-30% COHB Lethal: Greater than 60% COHB METHB Coox 0.5 <=1.5 % [facility] Source Coox Mixed Venous [facility] Blood 05/12/2023 1:14 AM EDT 05/12/2023 1:14 AM EDT Radha Hollins MD CHEMISTRY ORDERABL ES Performing Organization Address [facility] Co de Phone Number [facility] [place] [address] * (ABNORMAL) BLOOD GAS 2 ARTERIAL (05/12/2023 1:06 AM EDT) pH Art 7.34(L) 7.35 - 7.45 [facility] pCO2 Art 30(L) 35 - 45 mmHg [facility] pO2 Art 81(L) 85 - 104 mmHg [facility] HCO3 Art 15.7(L) 20.0 - 26.0 mmol/L [facility] BE Art -10.1(L) -3.0 - 3.0 mmol/L [facility] Hgb Blood Gas 11.0(L) 11.7 - 15.5 g/dL [facility] O2HB Art 92.3(L) 94.0 - 97.0 % [facility] COHB Art 0.2 % [...] Whole Blood 99 98 - 107 mmol/L [facility] Gluc Whole Bld 132 65 - 199 mg/dL [facility] Comment:Diabetes: >=200 mg/d L plus symptoms. Lactate WB 2.7(H) 0.5 - 2.2 mmol/L [facility] Flow Art 5.0 LPM [facility] Blood 05/12/2023 1:06 AM EDT 05/12/2023 1:06 AM EDT Radha Hollins MD CHEMISTRY ORDERABL ES [facility] [place] [address] * (ABNORMAL) Differential, Automated (05/12/2023 1:05 AM EDT) Neutrophils % 83.3 % [facility] Neutr Abs (ANC) 7.49(H) 1.70 - 6.10 x10(3)/[facility] Lymphocytes % 7.1 % [facility] Lymphocytes Abs 0.6(L) 0.9 - 3.2 x10(3)/[facility] Monocytes % 8.9 % [facility] Monocyte Abs 0.8 0.3 - 0.9 x10(3)/[facility]OR[facility]ORY Eosinophils % 0.0 % [facility] Eosinophils Abs 0.0 0.0 - 0.4 x10(3)/[facility] Basophils % 0.1 % [facility] Basophils Abs 0.0 0.0 - 0.1 x10(3)/[facility] LABOR[facility]ORY Immature Gran % 0.60 % [facility] Comment: Immature granulocytes(IG's)percentage and absolute count will include metamyelocytes, myelocytes, and promyelocytes. Blood smears from CBCs yielding IG's will be scanned manually for concordance. If this scan disagrees with the automated IG or if promyelocytes are noted, a manual differential will be performed. Amanda Gran Abs 0.05(H) 0.00 - 0.04 x10(3)/[facility] LABORAT[facility] Blood 05/12/2023 1:05 AM EDT 05/12/2023 1:15 AM EDT Narrative Resulting Agency Comment Spec In Lab [facility] Fletcher MD HEMATOLOGY ORDERABLE S [facility] [place] [address] * (ABNORMAL) Hemogram (05/12/2023 1:05 AM EDT) WBC 9.0 4.0 - 9.5 x10(3)/[facility] LABORATORY RBC 3.01(L) 4.00 - 5.21 x10(6)/[facility] LABORATORY Hemoglobin 9.8(L) 11.7 - 15.5 g/dL [facility] Hematocrit 28.7(L) 35.7 - 45.8 % [facility] MCV 95.3(H) 82.6 - 94.4 fL [facility] MCH 32.6(H) 27.1 - 32.0 pg [facility] MCHC 34.1 31.7 - 35.0 g/dL [facility] Platelets 186 145 - 357 x10(3)/[facility] LABORATORY RDWSD 43.7 37.0 - 46.0 [facility] LABORATORY RDWCV 12.7 11.5 - 14.1 % [facility] MPV 10.3 7.6 - 12.9 [facility] LABORATORY nRBC % Auto 0.0 % [facility] nRBC Abs Auto 0.000 0.000 - 0.000 x10(3)/[facility] LABORATORY Blood 05/12/2023 1:05 AM EDT 05/12/2023 1:15 AM EDT Narrative Resulting Agency Comment Spec In Lab Gianni Fletcher MD HEMATOLOGY ORDERABLE S [facility] [place] [address] * (ABNORMAL) Comprehensive metabolic panel (non-fasting) (05/12/2023 1:05 AM EDT) Glucose Lvl 141 65 - 199 mg/dL [facility] Comment:Diabetes: >=200 mg/d L plus symptoms BUN 63(H) 8 - 18 mg/dL [facility] Creatinine 1.86(H) 0.70 - 1.20 mg/dL [facility] Sodium 131(L) 135 - 145 mmol/L [facility] questions. Chloride 96(L) 98 - 107 mmol/L [facility] CO2 14(L) 22 - 31 mmol/L [facility] Anion Gap 21(H) 5 - 15 mmol/L [facility] Calcium 9.0 8.5 - 10.5 mg/dL [facility] Total Protein 6.6 6.1 - 8.0 g/dL [facility] Albumin 3.9 3.2 - 5.2 g/dL [facility] AST 1,227(H) 0 - 30 unit/L [facility] ALT 1,097(H) 0 - 30 unit/L [facility] Alk Phos 108(H) 35 - 105 unit/L [facility] Total Bilirubin 1.0 0.2 - 1.3 mg/dL [facility] Estimated GFR 29(L) >=60 mL/min/1. 73 m?? [facility] Comment: This patient's estimated [...] Lab Radha Hollins MD CHEMISTRY ORDERABL ES [facility] [place] [address] * XR Chest One View (05/12/2023 1:00 [...] who have questions please contact the health student career development specialist that requested your imaging first. ? Narrative [...] patients who have questions please contactthe health student career development specialist that requested your imaging first. Radha Hollins MD IMG DX ORDERABLES * (ABNORMAL) Coox2 (05/12/2023 12:30 AM EDT) pO2 Coox 22 mmHg [facility] Hgb Blood Gas 10.9(L) 11.7 - 15.5 g/dL [facility] O2HB Coox 25.1 % [facility] COHB Coox 0.3 % [facility] Comment: Nonsmokers: 0.5-1.5% COHB Smokers: Variable, but usually less than 10% Toxic: 20-30% COHB Lethal: Greater than 60% COHB METHB Coox 1.4 <=1.5 % [facility] Source Coox Mixed Venous [facility] Blood 05/12/2023 12:3 0 AM EDT 05/12/2023 12:30 AM EDT Radha Hollins MD CHEMISTRY ORDERABL ES [facility] [place] [address] * XR Chest One View (05/11/2023 11:45 [...] who have questions please contact the health student career development specialist that requested your imaging first. ? Narrative [...] patients who have questions please contactthe health student career development specialist that requested your imaging first. Radha Hollins MD IMG DX ORDERABLES * (ABNORMAL) Lactate, whole blood, send to lab ([facility] (05/11/2023 7:40 PM EDT) Lactate WB 4.8(Critic al) 0.5 - 2.2 mmol/L [facility] Comment:Called by: IMM, Read back by: Magdalena Baires, Date/Time:05/11/23 19:54. Blood 05/11/2023 7:40 PM EDT 05/11/2023 7:49 PM EDT Narrative Resulting Agency Comment Spec In Lab Radha Hollins MD CHEMISTRY ORDERABL ES [facility] [place] [address] * Urine culture (05/11/2023 7:22 PM EDT) Pathologist [facility] [place] Urine Culture 50,000-99,000 cfu/ml Normal mucosal herman Susceptibilit y testing not routinely performed for Coagulase Negative Staphylococcu s species and other Gram Positive organisms from urine. [facility] Clean Catch Urine 05/11/2023 7:22 PM EDT 05/11/2023 8:50 PM EDT Narrative Resulting Agency Comment Spec In Lab Brody Kaplan RESOURCE ANALYST MICROBIOLOGY - GENE RAL ORDERABLES Performing Organization Address [facility]/ZIP Co de Phone Number [facility] [place] [address] * (ABNORMAL) Urinalysis Microscopic Exam (05/11/2023 7:22 PM EDT) Pathologist [facility] [place] RBC UA 2 0 - 4 /HPF [facility] WBC UA >100(H) 0 - 5 /HPF [facility] Bacteria UA Occasional (A) None /HPF [facility] Squam Epith UA 5(H) <=4 /HPF [facility] Hyaline Cast UA 3(H) 0 - 2 /LPF [facility] Clean Catch Urine 05/11/2023 7:22 PM EDT 05/11/2023 7:31 PM EDT Narrative Resulting Agency Comment Spec In Lab Brody Kaplan RESOURCE ANALYST URINE ORDERABLES [facility] [place] [address] * (ABNORMAL) Urinalysis with reflex Culture (05/11/2023 7:22 PM EDT) Pathologist [facility] [place] Glucose UA Negative Negative mg/dL [facility] Protein UA Trace(A) Negative mg/dL [facility] Bilirubin UA Negative Negative mg/dL [facility] Comment: Clinical correlation required for positive Urine Bilirubin results as false positive may occur with some drugs and drug related products. If a false positive is suspected a serum total bilirubin should be considered if clinically indicated. Urobilinogen UA Normal Normal mg/dL [facility] pH UA 5.0 5.0 - 8.0 [facility] Blood UA Trace(A) Negative mg/dL [facility] Ketones UA Negative Negative mg/dL [facility] Nitrite UA Negative Negative [facility] Leukocytes UA Moderate(A) Negative mcL [facility] Appearance UA Cloudy(A) Clear [facility] Spec [place] UA >=1.030(A) 1.005 - 1.030 [facility] Color UA Yellow Yellow [facility] Culture Reflexed Yes [facility] Clean Catch Urine 05/11/2023 7:22 PM EDT 05/11/2023 7:31 PM EDT Narrative Resulting Agency Comment Spec In Lab Brody Kaplan APRN URINE ORDERABLES Performing Organization Address City/[facility]/ZIP Co de Phone Number [facility] [place] [address] * (ABNORMAL) pro-Brain Natriuretic Peptide (05/11/2023 7:11 PM EDT) ProBNP >35,000(H) <=124 pg/mL [facility] Blood 05/11/2023 7:11 PM EDT 05/11/2023 7:26 PM EDT Narrative Resulting Agency Comment Spec In Lab Radha Hollins MD CHEMISTRY ORDERABL ES Performing Organization Address City/[facility]/ZIP Co de Phone Number [facility] [place] [address] * (ABNORMAL) Lactate, whole blood, send to lab ([facility]) (05/11/2023 2:47 PM EDT) Lactate WB 2.9(H) 0.5 - 2.2 mmol/L [facility] Blood 05/11/2023 2:47 PM EDT 05/11/2023 2:53 PM EDT Narrative Resulting Agency Comment Spec In Lab Juan Luis Gonzalez MD CHEMISTRY ORDERABLES [facility] [place] [address] * (ABNORMAL) CT Angiogram Abdomen & Pelvis [...] who have questions please contact the health student career development specialist that requested your imaging first. ? Narrative [...] Agency Comment Unexpected Finding Antelmo Sharma [place] [facility] * CT Cardiac for Morphology [...] who have questions please contact the health student career development specialist that requested your imaging first. ? Electronically signed by: Cullen Narayanan MD, [facility] ([phone]), at 05/11/2023 4:37 PM Narrative 05/11/2023 4:37 [...] 610 mm2 Circumference: 88 mm Calcification: Mild Kibhomy-zx-[id number] height: Left: 6.2 mm Right: 5.8 mm THORACIC AORTA Description: Normal course and caliber. ??Mild diffuse atherosclerotic changes. No acute aortopathy noted. Data Entry Machine Operator dimensions: Aortic root: 27.6 mm Max ascending aorta: 30.5 mm x 27.7 mm Suggested fluoroscopic angulation based on line extending through the nadirs of the three sinuses of Valsalva, set equidistant: ?? ESTONIAN ??9 degrees; cranial 7 degrees MITRAL: Mitral [...] 610 mm2 Circumference: 88 mm Calcification: Mild Lakldpy-ju-gfpkqjji height: Left: 6.2 mm Right: 5.8 mm THORACIC AORTA Description: Normal course and caliber. Mild diffuse atheroscleroticchanges. No acute aortopathy noted. Data Entry Machine Operator dimensions: Aortic root: 27.6 mm Max ascending aorta: 30.5 mm x 27.7 mm Suggested fluoroscopic angulation based on line extending through thenadirs of the three sinuses of Valsalva, set equidistant: ESTONIAN 9 degrees; cranial 7 degrees MITRAL: Mitral [...] patients who have questions please contactthe health student career development specialist that requested your imaging first. Electronically signed by: Cullen Narayanan MD, [facility]([phone]), at 05/11/2023 4:37 PM Antelmo Sharma MD IMG CT ORDERABLES * (ABNORMAL) Lactate, whole blood, send to lab ([facility]) (05/11/2023 9:29 AM EDT) Pathologist [facility] [place] Lactate WB 3.1(H) 0.5 - 2.2 mmol/L [facility] Blood 05/11/2023 9:29 AM EDT 05/11/2023 9:38 AM EDT Narrative Resulting Agency Comment Spec In Lab Juan Luis Gonzalez MD CHEMISTRY ORDERABLES Performing Organization Address City/State/[facility] Co de Phone Number [facility] [place] [address] * (ABNORMAL) Differential, Automated (05/11/2023 4:42 AM EDT) Pathologist [facility] Neutrophils % 78.1 % [facility] Neutr Abs (ANC) 5.46 1.70 - 6.10 x10(3)/mc L [facility] Lymphocytes % 10.6 % [facility] Lymphocytes Abs 0.7(L) 0.9 - 3.2 x10(3)/ L [facility] Monocytes % 9.6 % [facility] Monocyte Abs 0.7 0.3 - 0.9 x10(3)/mc L [facility] Eosinophils % 0.0 % [facility] Eosinophils Abs 0.0 0.0 - 0.4 x10(3)/mc L [facility] Basophils % 0.4 % [facility] Basophils Abs 0.0 0.0 - 0.1 x10(3)/mc L [facility] Immature Gran % 1.30 % [facility] Comment: Immature granulocytes(IG's)percentage and absolute count will include metamyelocytes, myelocytes, and promyelocytes. Blood smears from CBCs yielding IG's will be scanned manually for concordance. If this scan disagrees with the automated IG or if promyelocytes are noted, a manual differential will be performed. Amanda Gran Abs 0.09(H) 0.00 - 0.04 x10(3)/mc L [facility] Blood 05/11/2023 4:42 AM EDT 05/11/2023 4:49 AM EDT Narrative Resulting Agency Comment Spec In Lab Klaudia Reid MD HEMATOLOGY OR DERABLES [facility] [place] [address] * (ABNORMAL) Hemogram (05/11/2023 4:42 AM EDT) WBC 7.0 4.0 - 9.5 x10(3)/[facility] LABORATORY RBC 3.44(L) 4.00 - 5.21 x10(6)/[facility] LABORATORY Hemoglobin 11.1(L) 11.7 - 15.5 g/dL [facility] Hematocrit 32.7(L) 35.7 - 45.8 % [facility] MCV 95.1(H) 82.6 - 94.4 fL [facility] MCH 32.3(H) 27.1 - 32.0 pg [facility] MCHC 33.9 31.7 - 35.0 g/dL [facility] Platelets 165 145 - 357 x10(3)/[facility] LABORATORY RDWSD 43.1 37.0 - 46.0 fL [facility] RDWCV 12.7 11.5 - 14.1 % [facility] MPV 10.1 7.6 - 12.9 fL [facility] nRBC % Auto 0.0 % [facility] nRBC Abs Auto 0.000 0.000 - 0.000 x10(3)/mcL [facility] Blood 05/11/2023 4:42 AM EDT 05/11/2023 4:49 AM EDT Narrative Resulting Agency Comment Spec In Lab Klaudia Reid MD HEMATOLOGY OR DERABLES Performing Organization Address [facility] Co de Phone Number [facility] [place] [address] * Heparin (unfractionated) Level (05/11/2023 4:42 AM EDT) Heparin UFH Level 0.46 IU/mL [facility] Comment: Heparin (anti-Xa) levels [...] ORDERAB LES Performing Organization Address [facility]/ZIP Co de Phone Number [facility] [place] [address] * (ABNORMAL) Comprehensive metabolic panel (non-fasting) (05/11/2023 4:42 AM EDT) Glucose Lvl 143 65 - 199 mg/dL [facility] Comment:Diabetes: >=200 mg/d L plus symptoms BUN 42(H) 8 - 18 mg/dL [facility] Creatinine 1.24(H) 0.70 - 1.20 mg/dL [facility] Sodium 134(L) 135 - 145 mmol/L [facility] Potassium 4.6 3.5 - 5.0 mmol/L [facility] Comment: Please note: ??Patients with WBC >100,000 may have falsely elevated Potassium levels. ??For accurate Potassium quantification in these patients send serum separator tube (gold top) for subsequent determinations. ??Contact the Clinical Chemistry Laboratory if there are any questions. Chloride 99 98 - 107 mmol/L [facility] CO2 14(L) 22 - 31 mmol/L [facility] Anion Gap 21(H) 5 - 15 mmol/L [facility] Calcium 9.6 8.5 - 10.5 mg/dL [facility] Total Protein 7.2 6.1 - 8.0 g/dL [facility] Albumin 3.7 3.2 - 5.2 g/dL [facility] AST 144(H) 0 - 30 unit/L [facility] Comment:result rechecked-ssc ALT 130(H) 0 - 30 unit/L [facility] Comment:result rechecked-ssc Alk Phos 72 35 - 105 unit/L [facility] Total Bilirubin 0.8 0.2 - 1.3 mg/dL [facility] Estimated GFR 48(L) >=60 mL/min/1. 73 m?? [facility] Comment: This patient's estimated [...] MD CHEMISTRY ORDERABL ES Performing Organization Address City/[facility]/ZIP Co de Phone Number [facility] [place] [address] * EKG 12 Lead (05/10/2023 1:16 PM EDT) Ventricular rate 118 BPM MUSE SYSTEM Atrial Rate 118 BPM MUSE SYSTEM P-R Interval 152 ms MUSE SYSTEM QRS Duration 104 ms MUSE SYSTEM Q-T Interval 316 ms MUSE SYSTEM QTC Calculated (Bezet) 442 ms MUSE SYSTEM Calculated P [place] 29 degrees MUSE SYSTEM Calculated R [place] 18 degrees MUSE SYSTEM Calculated T [place] -173 degrees MUSE SYSTEM INTERPRETATION Sinus tachycardia [...] Anterior leads Confirmed by MD Villareal Danette ([id number]) on 05/10/2023 8:47:46 PM MUSE SYSTEM 05/10/2023 1:16 PM EDT 05/10/2023 8:47 PM EDT Juan Luis Gonzalez MD ECG ORDERABLES Performing Organization Address City/[facility]/ZIP Co de Phone Number MUSE SYSTEM * Lactate, whole blood, send to lab ([facility]) (05/10/2023 11:52 AM EDT) Lactate WB 1.8 0.5 - 2.2 mmol/L [facility] Blood 05/10/2023 11:5 2 AM EDT 05/10/2023 12:13 PM EDT Narrative Resulting Agency Comment Spec In Lab Juan Luis Gonzalez MD CHEMISTRY ORDERABLES Performing Organization Address City/[facility]/ZIP Co de Phone Number [facility] [place] [address] * XR Chest One View (05/10/2023 11:16 [...] who have questions please contact the health student career development specialist that requested your imaging first. ? Narrative [...] patients who have questions please contactthe health student career development specialist that requested your imaging first. Juan Luis Gonzalez MD IMG DX ORDERABLES * EKG 12 Lead (05/10/2023 7:59 AM EDT) Ventricular rate 115 BPM MUSE SYSTEM Atrial Rate 115 BPM MUSE SYSTEM P-R Interval 142 ms MUSE SYSTEM QRS Duration 102 ms MUSE SYSTEM Q-T Interval 322 ms MUSE SYSTEM QTC Calculated (Bezet) 445 ms MUSE SYSTEM Calculated P [place] 36 degrees MUSE SYSTEM Calculated R [place] 28 degrees MUSE SYSTEM Calculated T [place] -119 degrees MUSE SYSTEM INTERPRETATION Sinus tachycardia with frequent Premature ventricular complexes and Fusion complexes ST & T wave abnormality, consider lateral ischemia Abnormal ECG When compared with ECG of 08-MAY-2023 15:51, No significant change was found I personally reviewed the tracing and edited the fellows interpretation Confirmed by fellow MD Anitha, Carissa ([id number]) on 05/11/2023 6:19:54 AM Confirmed by MD Tram, Chel ([id number]) on 05/11/2023 3:18:56 PM MUSE SYSTEM 05/10/2023 7:59 AM EDT 05/11/2023 3:18 PM EDT Radha Hollins MD ECG ORDERABLES MUSE SYSTEM * (ABNORMAL) Differential, Automated (05/10/2023 2:28 AM EDT) Neutrophils % 77.1 % [facility] Neutr Abs (ANC) 4.01 1.70 - 6.10 x10(3)/[facility] LABORATORY Lymphocytes % 14.0 % [facility] Lymphocytes Abs 0.7(L) 0.9 - 3.2 x10(3)/[facility] LABORATORY Monocytes % 7.7 % [facility] Monocyte Abs 0.4 0.3 - 0.9 x10(3)/[facility] LABORATORY Eosinophils % 0.4 % [facility] Eosinophils Abs 0.0 0.0 - 0.4 x10(3)/[facility] LABORATORY Basophils % 0.4 % [facility] Basophils Abs 0.0 0.0 - 0.1 x10(3)/[facility] LABORATORY Immature Gran % 0.40 % [facility] Comment: Immature granulocytes(IG's)percentage and absolute count will include metamyelocytes, myelocytes, and promyelocytes. Blood smears from CBCs yielding IG's will be scanned manually for concordance. If this scan disagrees with the automated IG or if promyelocytes are noted, a manual differential will be performed. Amanda Gran Abs 0.02 0.00 - 0.04 x10(3)/[facility] LABORATORY Blood 05/10/2023 2:28 AM EDT 05/10/2023 2:57 AM EDT Narrative Resulting Agency Comment Spec In Lab Klaudia Reid MD HEMATOLOGY OR DERABLES [facility] [place] [address] * (ABNORMAL) Hemogram (05/10/2023 2:28 AM EDT) WBC 5.2 4.0 - 9.5 x10(3)/[facility] LABORATORY RBC 3.11(L) 4.00 - 5.21 x10(6)/[facility] LABORATORY Hemoglobin 10.2(L) 11.7 - 15.5 g/dL [facility] Hematocrit 30.2(L) 35.7 - 45.8 % [facility] MCV 97.1(H) 82.6 - 94.4 [facility] LABORATORY MCH 32.8(H) 27.1 - 32.0 pg [facility] MCHC 33.8 31.7 - 35.0 g/dL [facility] Platelets 151 145 - 357 x10(3)/[facility] LABORATORY RDWSD 44.9 37.0 - 46.0 [facility] RDWCV 12.8 11.5 - 14.1 % [facility] MPV 9.8 7.6 - 12.9 [facility]OR[facility] nRBC % Auto 0.0 % [facility] nRBC Abs Auto 0.000 0.000 - 0.000 x10(3)/[facility] LABORATORY Blood 05/10/2023 2:28 AM EDT 05/10/2023 2:57 AM EDT Narrative Resulting Agency Comment Spec In Lab Klaudia Reid MD HEMATOLOGY OR DERABLES [facility] [place] [address] * (ABNORMAL) Comprehensive metabolic panel (non-fasting) (05/10/2023 2:28 AM EDT) Glucose Lvl 100 65 - 199 mg/dL [facility] Comment:Diabetes: >=200 mg/d L plus symptoms BUN 30(H) 8 - 18 mg/dL [facility] Creatinine 0.90 0.70 - 1.20 mg/dL [facility] Sodium 134(L) 135 - 145 mmol/L [facility] Potassium 4.1 3.5 - 5.0 mmol/L [facility] Comment: Please note: ??Patients with WBC >100,000 may have falsely elevated Potassium levels. ??For accurate Potassium quantification in these patients send serum separator tube (gold top) for subsequent determinations. ??Contact the Clinical Chemistry Laboratory if there are any questions. Chloride 102 98 - 107 mmol/L [facility] CO2 20(L) 22 - 31 mmol/L [facility] Anion Gap 12 5 - 15 mmol/L [facility] Calcium 9.3 8.5 - 10.5 mg/dL [facility] Total Protein 6.4 6.1 - 8.0 g/dL [facility] Albumin 3.7 3.2 - 5.2 g/dL [facility] AST 24 0 - 30 unit/L [facility] ALT 14 0 - 30 unit/L [facility] Alk Phos 70 35 - 105 unit/L [facility] Total Bilirubin 0.5 0.2 - 1.3 mg/dL [facility] Estimated GFR 70 >=60 mL/min/1. 73 m?? [facility] Comment: This patient's estimated [...] Lab Radha Hollins MD CHEMISTRY ORDERABL ES [facility] [place] [address] * Heparin (unfractionated) Level (05/10/2023 2:28 AM EDT) [facility] Heparin UFH Level 0.37 IU/mL [facility] Comment: Heparin (anti-Xa) levels [...] Lab Radha Hollins MD HEMATOLOGY ORDERAB LES [facility] [place] [address] * (ABNORMAL) Differential, Automated (05/09/2023 4:00 AM EDT) [facility] Neutrophils % 81.7 % [facility] Neutr Abs (ANC) 5.26 1.70 - 6.10 x10(3)/mc L [facility] Lymphocytes % 10.7 % [facility] Lymphocytes Abs 0.7(L) 0.9 - 3.2 x10(3)/mc L [facility] Monocytes % 6.5 % [facility] Monocyte Abs 0.4 0.3 - 0.9 x10(3)/mc L [facility] Eosinophils % 0.5 % [facility] Eosinophils Abs 0.0 0.0 - 0.4 x10(3)/mc L [facility] Basophils % 0.3 % [facility] Basophils Abs 0.0 0.0 - 0.1 x10(3)/ L [facility] Immature Gran % 0.30 % [facility] Comment: Immature granulocytes(IG's)percentage and absolute count will include metamyelocytes, myelocytes, and promyelocytes. Blood smears from CBCs yielding IG's will be scanned manually for concordance. If this scan disagrees with the automated IG or if promyelocytes are noted, a manual differential will be performed. Amanda Gran Abs 0.02 0.00 - 0.04 x10(3)/ L [facility] Blood 05/09/2023 4:00 AM EDT 05/09/2023 4:19 AM EDT Narrative Resulting Agency Comment Spec In Lab Klaudia Reid MD HEMATOLOGY OR DERABLES Performing Organization Address City/State/[facility] Co de Phone Number [facility] [place] [address] * (ABNORMAL) Hemogram (05/09/2023 4:00 AM EDT) WBC 6.4 4.0 - 9.5 x10(3)/[facility] LABORATORY RBC 3.15(L) 4.00 - 5.21 x10(6)/[facility] LABORATORY Hemoglobin 10.2(L) 11.7 - 15.5 g/dL [facility] Hematocrit 30.3(L) 35.7 - 45.8 % [facility] MCV 96.2(H) 82.6 - 94.4 fL [facility] MCH 32.4(H) 27.1 - 32.0 pg [facility] MCHC 33.7 31.7 - 35.0 g/dL [facility] Platelets 151 145 - 357 x10(3)/[facility] RDWSD 44.7 37.0 - 46.0 fL [facility] RDWCV 12.8 11.5 - 14.1 % [facility] MPV 9.4 7.6 - 12.9 fL [facility] nRBC % Auto 0.0 % [facility] nRBC Abs Auto 0.000 0.000 - 0.000 x10(3)/mcL [facility] Blood 05/09/2023 4:00 AM EDT 05/09/2023 4:19 AM EDT Narrative Resulting Agency Comment Spec In Lab Klaudia Reid MD HEMATOLOGY OR DERABLES Performing Organization Address [facility] Co de Phone Number [facility] [place] [address] * Heparin (unfractionated) Level (05/09/2023 4:00 AM EDT) Heparin UFH Level 0.47 IU/mL [facility] Comment: Heparin (anti-Xa) levels [...] ORDERAB LES Performing Organization Address [facility]/ZIP Co de Phone Number [facility] [place] [address] * (ABNORMAL) Comprehensive metabolic panel (non-fasting) (05/09/2023 4:00 AM EDT) Glucose Lvl 108 65 - 199 mg/dL [facility] Comment:Diabetes: >=200 mg/d L plus symptoms BUN 31(H) 8 - 18 mg/dL [facility] Creatinine 1.03 0.70 - 1.20 mg/dL [facility] Sodium 137 135 - 145 mmol/L [facility] questions. Chloride 102 98 - 107 mmol/L [facility] CO2 20(L) 22 - 31 mmol/L [facility] Anion Gap 15 5 - 15 mmol/L [facility] Calcium 9.3 8.5 - 10.5 mg/dL [facility] Total Protein 6.6 6.1 - 8.0 g/dL [facility] Albumin 3.8 3.2 - 5.2 g/dL [facility] AST 32(H) 0 - 30 unit/L [facility] ALT 18 0 - 30 unit/L [facility] Alk Phos 78 35 - 105 unit/L [facility] Total Bilirubin 0.5 0.2 - 1.3 mg/dL [facility] Estimated GFR 60 >=60 mL/min/1. 73 m?? [facility] Comment: This patient's estimated [...] ORDERABL ES Performing Organization Address [facility] Co de Phone Number [facility] [place] [address] * (ABNORMAL) pro-Brain Natriuretic Peptide (05/08/2023 4:00 PM EDT) ProBNP 25,503(H) <=124 pg/mL [facility] Blood Venous Draw / Unknown 05/08/2023 4:00 PM EDT 05/08/2023 4:25 PM EDT Narrative Resulting Agency Comment Spec In Lab Juan Luis Gonzalez MD CHEMISTRY ORDERABLES Performing Organization Address [facility] Co de Phone Number [facility] [place] [address] * Magnesium (05/08/2023 4:00 PM EDT) Magnesium 0.82 0.69 - 1.07 mmol/L [facility] Blood 05/08/2023 4:00 PM EDT 05/08/2023 4:06 PM EDT Narrative Resulting Agency Comment Spec In Lab Enrique Chua MD CHEMISTRY ORDERABLES Performing Organization Address [facility] Co de Phone Number [facility] [place] [address] * Potassium (05/08/2023 4:00 PM EDT) Potassium 3.9 3.5 - 5.0 mmol/L [facility] [...] MD CHEMISTRY ORDERABL ES Performing Organization Address [facility] de Phone Number [facility] [place] [address] * Heparin (unfractionated) Level (05/08/2023 4:00 PM EDT) Pathologist [facility] Heparin UFH Level 0.43 IU/mL [facility] Comment: Heparin (anti-Xa) levels [...] MD HEMATOLOGY ORDERAB LES Performing Organization Address [facility] Co de Phone Number [facility] [place] [address] * EKG 12 Lead (05/08/2023 3:51 PM EDT) Ventricular rate 98 BPM MUSE SYSTEM Atrial Rate 98 BPM MUSE SYSTEM P-R Interval 150 ms MUSE SYSTEM QRS Duration 102 ms MUSE SYSTEM Q-T Interval 358 ms MUSE SYSTEM QTC Calculated (Bezet) 457 ms MUSE SYSTEM Calculated P [place] 38 degrees MUSE SYSTEM Calculated R [place] 48 degrees MUSE SYSTEM Calculated T [place] -112 degrees MUSE SYSTEM INTERPRETATION Sinus rhythm with frequent and consecutive Premature ventricular and fusion complexes Septal infarct , age undetermined ST & T wave abnormality, consider anterolateral ischemia Abnormal ECG When compared with ECG of 09-NOV-2022 11:17, T wave inversion now evident in Anterolateral leads Confirmed by MD Harshil, Enrique Bell ([id number]) on 05/10/2023 8:11:46 AM MUSE SYSTEM 05/08/2023 3:51 PM EDT 05/10/2023 8:11 AM EDT Radha Hollins MD ECG ORDERABLES MUSE SYSTEM * (ABNORMAL) Differential, Automated (05/08/2023 11:38 AM EDT) Neutrophils % 71.3 % [facility] Neutr Abs (ANC) 2.91 1.70 - 6.10 x10(3)/[facility] LABORATORY Lymphocytes % 19.1 % [facility] Lymphocytes Abs 0.8(L) 0.9 - 3.2 x10(3)/[facility] LABORATORY Monocytes % 9.0 % [facility] Monocyte Abs 0.4 0.3 - 0.9 x10(3)/[facility] LABORATORY Eosinophils % 0.2 % [facility] Eosinophils Abs 0.0 0.0 - 0.4 x10(3)/[facility] LABORATORY Basophils % 0.2 % [facility] Basophils Abs 0.0 0.0 - 0.1 x10(3)/[facility] LABORATORY Immature Gran % 0.20 % [facility] Comment: Immature granulocytes(IG's)percentage and absolute count will include metamyelocytes, myelocytes, and promyelocytes. Blood smears from CBCs yielding IG's will be scanned manually for concordance. If this scan disagrees with the automated IG or if promyelocytes are noted, a manual differential will be performed. Amanda Gran Abs 0.01 0.00 - 0.04 x10(3)/[facility] LABORATORY Blood 05/08/2023 11:3 8 AM EDT 05/08/2023 11:44 AM EDT Narrative Resulting Agency Comment Spec In Lab Lincoln Sal MD HEMATOLOGY ORDERA BLES Performing Organization Address City/[facility]/ZIP Co de Phone Number [facility] [place] [address] * (ABNORMAL) Hemogram (05/08/2023 11:38 AM EDT) WBC 4.1 4.0 - 9.5 x10(3)/[facility] LABORATORY RBC 3.05(L) 4.00 - 5.21 x10(6)/[facility] LABORATORY Hemoglobin 10.2(L) 11.7 - 15.5 g/dL [facility] Hematocrit 29.6(L) 35.7 - 45.8 % [facility] MCV 97.0(H) 82.6 - 94.4 [facility] LABORATORY MCH 33.4(H) 27.1 - 32.0 pg [facility] MCHC 34.5 31.7 - 35.0 g/dL [facility] Platelets 136(L) 145 - 357 x10(3)/[facility] LABORATORY RDWSD 44.3 37.0 - 46.0 [facility] LABORATORY RDWCV 12.6 11.5 - 14.1 % [facility] MPV 9.4 7.6 - 12.9 [facility] LABORATORY nRBC % Auto 0.0 % [facility] nRBC Abs Auto 0.000 0.000 - 0.000 x10(3)/[facility] LABORATORY Blood 05/08/2023 11:3 8 AM EDT 05/08/2023 11:44 AM EDT Narrative Resulting Agency Comment Spec In Lab Lincoln Sal MD HEMATOLOGY ORDERA BLES [facility] [place] [address] * TSH (05/08/2023 11:38 AM EDT) TSH 1.27 0.27 - 4.20 mcIU/mL [facility] Comment: Reference Interval (mcIU/mL): Females: ??First Trimester: 0.23-3.88 ??Second Trimester: 0.22-3.90 ??Third Trimester: 0.44-4.66 Blood 05/08/2023 11:3 8 AM EDT 05/08/2023 11:44 AM EDT Narrative Resulting Agency Comment Spec In Lab Enrique Chua MD CHEMISTRY ORDERABLES Performing Organization Address [facility] Phone Number [facility] [place] [address] * (ABNORMAL) Phosphorus (05/08/2023 11:38 AM EDT) Phosphorus 4.7(H) 2.5 - 4.5 mg/dL [facility] Blood 05/08/2023 11:3 8 AM EDT 05/08/2023 11:44 AM EDT Narrative Resulting Agency Comment Spec In Lab Enrique Chua MD CHEMISTRY ORDERABLES Performing Organization Address [facility] Co de Phone Number [facility] [place] [address] * Magnesium (05/08/2023 11:38 AM EDT) Magnesium 0.76 0.69 - 1.07 mmol/L [facility] Blood 05/08/2023 11:3 8 AM EDT 05/08/2023 11:44 AM EDT Narrative Resulting Agency Comment Spec In Lab Enrique Chua MD CHEMISTRY ORDERABLES Performing Organization Address [facility]/ZIP Co de Phone Number [facility] [place] [address] * (ABNORMAL) Basic Metabolic Panel (non-fasting) (05/08/2023 11:38 AM EDT) Glucose Lvl 97 65 - 199 mg/dL [facility] Comment:Diabetes: >=200 mg/d L plus symptoms BUN 27(H) 8 - 18 mg/dL [facility] Creatinine 1.02 0.70 - 1.20 mg/dL [facility] Sodium 139 135 - 145 mmol/L [facility] questions. Chloride 105 98 - 107 mmol/L [facility] CO2 20(L) 22 - 31 mmol/L [facility] Anion Gap 14 5 - 15 mmol/L [facility] Calcium 9.4 8.5 - 10.5 mg/dL [facility] Estimated GFR 60 >=60 mL/min/1. 73 m?? [facility] Comment: This patient's estimated [...] Enrique Chua MD CHEMISTRY ORDERABLES [facility] [place] [address] * ECHO COMPLETE (05/08/2023 11:02 AM EDT) EF 25 HEARTLAB SYSTEM Anatomical Region Laterality Modality Cardiac Other 05/08/2023 10:0 3 AM EDT Narrative 05/08/2023 11:51 AM EDT ? Echocardiogram Report Name: PURNIMA THACKER ?Study Date: 05/08/2023 10:03 AMBP: 92/64 mmHg ? Patient Location: [facility]^CV29^A : 1955 ? Height: 155 cm ? Account: [id number] Age: 67 yrs ? Weight: 78 kg Gender: Female ?BSA: 1.8 m2 Ordering Physician: ENRIQUE CHUA Referring Physician: MARIO ALBERTO CHIN Performed By: CHUCKIE Canchola Reason For Study: SAVR Stenosis Exam Location: [facility]. Interpretation Summary -Left ventricle is severely [...] worsening stenosis. Mitral regurgitation is similar. Procedure Complete-[id number]. Satisfactory quality. There is normal sinus rhythm. [...] Study Date: 0:03 AMBP: 92/64 mmHg Patient Location:[facility]^CV29^A : 1955 Height: 155 cm Account: [id number] Age: 67 yrs Weight: 78 kg Gender: Female BSA: 1.8 m2 Ordering Physician: ENRIQUE CHUA Referring Physician: MARIO ALBERTO CHIN Performed By: CHUCKIE Canchola Reason For Study: SAVR Stenosis Exam Location: [facility]. Interpretation Summary -Left ventricle is severely [...] suggestsworsening stenosis. Mitral regurgitation is similar. Procedure Complete-[id number]. Satisfactory quality. There is normal sinus rhythm. 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 Mild coronary artery disease by [facility] 11/09/2022 Mixed connective tissue disease [...] fraction Mild coronary artery disease by [facility] 11/09/2022 Stenosis of prosthetic aortic [...] dose on Wed05/12/23 at 1030, Until Discontinued, [place] teeth, Routine Given 05/12/2023 10:04 AM EDT [...] 0923, Until 05/08/23 at 1103, Alisha Norris: ellyinealissa override heparin (porcine) 50 units/mL in dextrose [...] PRN, Starting on Wed05/12/23 at 0944, Until 05/16/23 at 1026, Constipation, 30 mL regular (400 [...] PRN, Starting on 05/16/23 at 1025, Until Wed05/17/23 at 0755, Constipation, Routine Given 05/16/2023 11:44 [...] 50 mEq, Intravenous, ONCE, 1 dose, On 05/12/23 at 1115, Warning Vesicant/Irritant Medication , Routine [...] Intravenous, EVERY 8 HOURS, First dose on Mon 23 at 0930, Until Discontinued, Routine Given 05/21/2023 [...] at 0831, Side port TKO rate, per [facility] flush protocol Rate/Dose Verify 05/13/2023 6:00 AM EDT 10 mL/hr 10 mL/hr Rate/Dose Verify 05/13/2023 4:00 AM EDT 10 mL/hr 10 mL/h r Rate/Dose Verify 05/13/2023 2:00 AM EDT 10 mL/hr 10 mL/h r sodium chloride 0.9% infusion 10-30 mL/hr, Intravenous, DAILY PRN, Starting on Wed05/12/23 at 0944, Until Wed05/17/23 at 0831, Side port TKO rate, per [facility] flush protocol. Rate/Dose Verify 05/17/2023 8:00 [...] Discontinued, Routine 1738 (Given - Provider: Gabino Calhoun, VALDO) 1619 (Given - Provider: Kia Gallego, RN) furosemide (Lasix) tablet 20 mg 20 mg, [...] Minutes 1758 (New Bag - Provider: Gabino Calhoun, RN)1958 (Stopped - Provider: Favian Mckeon RN) [...] RN)2053 (Given - Provider: Favian Mckeon, RN) 08 (Given - Provider: Kia Gallego, RN)2012 (Given [...] post-op day 1 in the AM Give AK if unable to take PO, Routine Group [...] Routine documented in this encounter Care Teams Washer Hand Relationship Specialty Start Date End Date Magdalena Acosta MD [address] [place] [address] PCP - General Family Medicine 02/05/23 documented as of this encounter
--- OUTSIDE RECORDS SUMMARY | 2024-03-02 13:58 | XMS_ITS | Encounter Summary ---
Author Organization [facility] [place] [address] Care Team Providers Care Process Design Engineer Name Role Phone Magdalena Acosta MD Primary Care Provider [phone] Reason for Visit * Auth/Cert (Routine) Specialty Diagnoses / Procedures Referred By Contac t Referred To Contact Diagnoses Symptomatic severe aortic stenosis with low ejection fraction NSTEMI, CHF Enrique Chua MD [facility] [place] [address] [facility] Referral ID Status Reason Start Date Expiration Date Visits Re quested Visits Authorized [id number] 1 1 Encounter Details Date Type Department Care Team (Late st Contact Info) Description 05/12/2023 2:50 PM EDT - 05/12/2023 3:50 PM EDT Surgery [place] [address] Antelmo Sharma MD [facility] [place] [address] CARDIAC CATHETERIZATION Social History Tobacco Use Types [...] with PCP, Magdalena Acosta MD, or Primary Tree Fruit And Nut Farming Supervisor, Avis Mejia MD, in ~ 7-10 days. Patient to follow up with Want Ad Supervisor, Dr. Antelmo Sharma, in 2 weeks with an EKG, Echo, CBC, and CMP. Patient to follow up with Nephrology, their office to arrange. Zpaq-Hkstfh-qc interval: After initial 30 day follow-up appointment , all TAVR patients will follow-up again in one year with an echo. 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 Secondary Diagnoses: Active Hospital Problems Diagnosis S/P TAVR (transcatheter aortic valve replacement) Cardiogenic shock Symptomatic severe aortic stenosis with low ejection fraction Mild coronary artery disease by [facility] 11/09/2022 Heart failure with reduced ejection [...] Tube Placement Right 05/18/2023 Laure Ricks PA [facility] INTERVENTIONL RAD PRG CATH PLMT LEFT HEART CATH & ARTS W/INJ & ANGIO IMG S&I N/A 11/09/2022 CORONARY ANGIOGRAPHY; W [facility],POSSIBLE PCI (WRVU 5.6) performed by Mario Alberto Escobedo MD at [facility] CATH LABS PRG COMBINED RIGHT & LEFT HEART CATH W/INJ L VENTRICULOGRAPHY, IMG S&I N/A 05/12/2023 COMBINED RIGHT & LEFT HEART CATH,INC INJ FOR L VENTRICULOGRAPHY (WRVU 5.99) performed by Antelmo Sharma MD at [facility] CATH LABS PRO AORTOPLAS FOR SUPRAVALV STEN N/A 09/21/2016 @AORTOPLASTY FOR SUPRAVALVULAR STENOSIS (WRVU 29.33) performed by Alirio Hudson MD at [facility] MAIN OR PRO REPLACE AORTIC VALVE (TAVR/FEDERICO)PERC FEMORAL ARTERY APPROACH 05/12/2023 @TRANSCATHETER AORTIC VALVE REPLACEMENT (TAVR), PERCUTANEOUS FEMORAL (WRVU 22.47) performed by Alirio Hudson MD at [facility] CATH LABS PRO REPLACEMENT PROSTHETIC AORTIC VALVE OPEN W CARDIOPULMONARY BYPASS HOMOGRF/STENT N/A 09/21/2016 @REPLACE AORTIC VALVE, OPEN, W\CPB, W\PROSTHETIC VALVE (WRVU 41.32) performed by Alirio Hudson MD at [facility] MAIN OR Prior To Admission [...] Major Procedures/Operations: 05/12/23: Successful right transfemoral TAVR Ucqlo-iy-Xcjfw with a 23 mm Lai 3 THV. Left coronary protection with left main MINNA. Hospital Course: #Severe prosthetic s/p valve in valve TF TAVR #Low coronary heights s/p left main stent for coronary protection #Type 2 NSTEMI, present on arrival, resolved #Acute decompensated HFrEF #Cardiogenic shock #EVANS / Cardiorenal syndrome Purnima Thacker was admitted to [facility] on 05/08/2023 via the Cardiology Service with [...] TAVR and she was brought to the cardiac cath rn the following morning where Drs. Alirio Hudson [...] if you have questions. Please call your Want Ad Supervisor's office if you have any discharge or drainage from your procedural sites. Your Want Ad Supervisor, Dr. Antelmo Sharma and/or the Personal Injury Attorney may be reached at . Antibiotic prophylaxis: You will need to take antibiotics prior to many invasive tests and treatments, such as dental cleaning, which should be done every 6 months. Your primary care physician or your dentist can prescribe this medication. Please refer to the card with the English Heart Association Guidelines for more information. You have been provided with a copy of this card. Please refer to the English Heart Association Guidelines for more information. Good [...] friends, go to a movie, go to caodaism, etc. Heavy activities: No hunting, skiing, jogging, [...] should resume a low fat, low cholesterol, English Heart Association Diet Driving: No restrictions. Shower/Bath: You may shower daily. No baths, soaking, or swimming for the first week. Wound care: Wash the sites daily with soap and rinse well, pat dry. Assess for any signs of infection such as increased redness, pain, warmth or drainage. Please call your middle school professional's office if you have any discharge or drainage from your procedural sites. If there is a lot of swelling, apply mamta wraps during the day and remove at bedtime. Elevate your legs when you are sitting. Home oxygen therapy: N/A Follow up appointments: Please schedule a follow-up appointment with your PCP, Magdalena Acosta MD, or Primary Tree Fruit And Nut Farming Supervisor in ~ 7-10 days. You have a follow-up appointment with your Want Ad Supervisor, Dr. Antelmo Sharma, in 2 weeks with an EKG, Echo, and labs prior to your appointment. You will need follow-up with Nephrology, their office will arrange. Jrdh-Mfkqzk-jd interval: After initial 30 day follow-up appointment , all TAVR patients will follow-up again in one year with an echo. Cardiac Rehabilitation: Purnima Thacker was seen today regarding participation in the outpatient Phase 2 Cardiac Rehabilitation at [facility]. The patient agrees to a referral to this program. The referral will be sent at discharge and the patient should be contacted by the Program within 1- 2 weeks from discharge. Future Appointments and Orders Future Appointments and Orders Future Appointments Provider Department Dept Phone 07/29/2023 11:00 AM Magdalena Peralta MD Rheumatology at [facility] Arrive at: [employer] [address] [phone] 02/11/2024 2:00 PM Marek Bonilla MD Dermatology at [place] Arrive at: [facility] [address] [phone] Future Orders Complete By Expires Type and Screen Future Surgery, [facility] SAME DAY PROGRAM ONLY) [[id number] Custom] 05/11/2023 Process Instructions: This test is intended ONLY for patients with upcoming surgery for testing prior to the day of surgery obtained through the same day program (4V or SDP). For ALL OTHER PATIENTS, order a Type and Screen (RTM218) This order includes the physician order for an ABO Recheck if requested by the Blood Bank. Scheduling Instructions: Comments: Questions: Date of surgery: CBC (with Diff) [LPG741 Custom] 06/05/2023 12/05/2023 Process Instructions: INCLUDES: WBC, RBC, Hgb, Hct, Platelets, RBC Indices and Differential Scheduling Instructions: Comments: Questions: Comprehensive metabolic panel (non-fasting) [LAB17 Custom] 06/05/2023 08/20/2023 Process Instructions: INCLUDES: Calcium, T Protein, Albumin, AST, ALT, Alk Phos, T Bili, BUN, Creat, GFR, Glucose, Lytes. Scheduling Instructions: Comments: Questions: Echocardiogram Transthoracic [72613 CPT(R)] 06/05/2023 12/05/2023 Process Instructions: Scheduling Instructions: Questions: Where will study be performed?: [facility] Clinics Does the patient have Congenital Heart Disease?: Does patient require sedation?: GA rationale: EKG 12 Lead [05583 CPT(R)] 06/05/2023 12/05/2023 Process Instructions: Scheduling Instructions: Questions: Which location will this be performed?: [place] Is a rhythm strip needed?: No [facility] Devices [EQ161 Custom] As directed Process Instructions: Scheduling Instructions: Questions: Device Needed: WALKER (E0143) Patient Height (cm): 154.9 cm (5' 0.98) Patient Weight: 75.4 kg (166 lb 3.2 oz) Diagnosis: Unsteady gait when walking Referral to Cardiac Rehab [EXN380 Custom] As directed Process Instructions: If no progress note charted, please enter Clinical details in comments. Scheduling Instructions: Questions: My question or request is: s/p TAVR. Cardiac rehab at [facility]. Referral to Home Health [REF34 Custom] As directed Process Instructions: If no progress note charted, please enter Clinical details in comments. Scheduling Instructions: Comments: DOCUMENTATION FOR VNA SERVICES PATIENT'S LOCATION: Purnima Thacker [address] [place] [phone] (home) Family Medicine Resident's Name: Irineo and brother Raymond In discussion with the attending physician, it is certified that this patient is under his/her careand that MD, or an CLAY CARMAN, ASSEMBLER GOLF WOOD HEAD, or PA who is working directly with him/her, had a czlr-ro-pzjx encounter that meets the physician hlhf-ua-ndua encounter requirements with this patient on 05/22/2023. [...] for managing ADLs. HOME HEALTH CARE AGENCY: [facility]. [address] [facility] [address] PHONE: [phone] FAX: [phone] Start of care: Ideally 24-48 hours after [...] Magdalena Acosta MD [address] / [facility] [phone] All VNA agencies which cover the area of patient's residence have been reviewed, either verbally joao writing, and patient has chosen the home health care agency noted. Questions: Disciplines Requested: Physical Therapy Occupational Therapy Discharge References/Attachments None Arrangements for VNA/home care: As above. (delete if no VNA) Signed: EKATERINA NAVARRETE [facility] Section of Cardiac Surgery Date: 05/22/2023 CC: Magdalena Acosta MD DelaneyMario Alberto maxwell MD [address] [place] [address] documented in this encounter Discharge Instructions * Patient Instructions* Vinod Juárez PA - 05/22/2023 9:32 AM EDT TAVR Discharge Instructions: Call your doctor if: You have a fever of greater than 101 degrees, shaking chills, if you develop redness or drainage from your procedure sites, or if you have questions. Please call your Want Ad Supervisor's office if you have any discharge or drainage from your procedural sites. Your Want Ad Supervisor, Dr. Antelmo Sharma and/or the Personal Injury Attorney may be reached at . Antibiotic prophylaxis: You will need to take antibiotics prior to many invasive tests and treatments, such as dental cleaning, which should be done every 6 months. Your primary care physician or your dentist can prescribe this medication. Please refer to the card with the English Heart Association Guidelines for more information. You have been provided with a copy of this card. Please refer to the English Heart Association Guidelines for more information. Good [...] friends, go to a movie, go to caodaism, etc. Heavy activities: No hunting, skiing, jogging, [...] should resume a low fat, low cholesterol, English Heart Association Diet Driving: No restrictions. Shower/Bath: You may shower daily. No baths, soaking, or swimming for the first week. Wound care: Wash the sites daily with soap and rinse well, pat dry. Assess for any signs of infection such as increased redness, pain, warmth or drainage. Please call your middle school professional's office if you have any discharge or drainage from your procedural sites. If there is a lot of swelling, apply mamta wraps during the day and remove at bedtime. Elevate your legs when you are sitting. Home oxygen therapy: N/A Follow up appointments: Please schedule a follow-up appointment with your PCP, Magdalena Acosta MD, or Primary Tree Fruit And Nut Farming Supervisor in ~ 7-10 days. You have a follow-up appointment with your Want Ad Supervisor, Dr. Antelmo Sharma, in 2 weeks with an EKG, Echo, and labs prior to your appointment. You will need follow-up with Nephrology, their office will arrange. Hydx-Ovkdrq-ef interval: After initial 30 day follow-up appointment , all TAVR patients will follow-up again in one year with an echo. Cardiac Rehabilitation: Purnima Gallegol was seen today regarding participation in the outpatient Phase 2 Cardiac Rehabilitation at [facility]. The patient agrees to a [...] ins ( tef) Haven Ba, PT Pager: [phone] Physical Therapy Inpatient Rehabilitation Department * Nico Palacios PA - 05/21/2023 8:43 AM EDT Cardiac Surgery Progress Note Purnima Thcaker is a 67 y.o. female with cardiogenic [...] 0600 and on the weekends please page [phone]. * Jory Paniagua - 05/20/2023 3:52 PM [...] vomiting Last Bowel Movement: 05/20/23 Jory Paniagua Director Client * Tong Mike, OT - 05/20/2023 3:16 [...] Tube Placement Right 05/18/2023 Laure Ricks PA [facility] INTERVENTIONL RAD PRG CATH PLMT LEFT HEART CATH & ARTS W/INJ & ANGIO IMG S&I N/A 11/09/2022 CORONARY ANGIOGRAPHY; W [facility],POSSIBLE PCI (WRVU 5.6) performed by Mario Alberto Escobedo MD at [facility] CATH LABS PRG COMBINED RIGHT & LEFT HEART CATH W/INJ L VENTRICULOGRAPHY, IMG S&I N/A 05/12/2023 COMBINED RIGHT & LEFT HEART CATH,INC INJ FOR L VENTRICULOGRAPHY (WRVU 5.99) performed by Antelmo Sharma MD at [facility] CATH LABS PRO AORTOPLAS FOR SUPRAVALV STEN N/A 09/21/2016 @AORTOPLASTY FOR SUPRAVALVULAR STENOSIS (WRVU 29.33) performed by Alirio Hudson MD at [facility] MAIN OR PRO REPLACE AORTIC VALVE (TAVR/FEDERICO)PERC FEMORAL ARTERY APPROACH 05/12/2023 @TRANSCATHETER AORTIC VALVE REPLACEMENT (TAVR), PERCUTANEOUS FEMORAL (WRVU 22.47) performed by Alirio Hudson MD at [facility] CATH LABS PRO REPLACEMENT PROSTHETIC AORTIC VALVE OPEN W CARDIOPULMONARY BYPASS HOMOGRF/STENT N/A 09/21/2016 @REPLACE AORTIC VALVE, OPEN, W\CPB, W\PROSTHETIC VALVE (WRVU 41.32) performed by Alirio Hudson MD at [facility] MAIN OR Social History: Patient lives alone. Home Setup: Pt lives on one level with tub shower and three steps to enter. DME: none used MANAGER RESEARCH Baseline ADL/Mobility: Independent with ADLs and IADLs. 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 Total Minutes, Occupational Therapy: 28 (2598-3475) OT Evaluation Code Rationale: Diagnosis & Pertinent Co-Morbidities affecting Plan of Care: see PMHx Occupational Profile & Client History: Brief Expanded Extensive x Assessment of Occupational Performance: 1-3 performance deficits 3-5 performance deficits x 5 + performance deficits Clinical Decision Making: Low Moderate High x Clinical decision making of moderate complexity using standardized patient assessment instrument and measurable assessment of functional outcome. Pager: [phone] TONG MIKE OT 05/20/2023 Occupational Therapy Rehabilitation [...] 0600 and on the weekends please page [phone]. * Rylie Rodriguez MD - 05/19/2023 3:59 [...] and plan. Cynthia Blackburn MD Nephrology Pager: [phone] * Diana Espino - 05/19/2023 1:49 PM EDT Supervisor Title Encounter Note Patient Name: Purnima Thacker : [id number] MR#: [id number] Admit Date: 05/08/2023 9:14 AM Hospital Day [...] returning home alone. Anticipated Discharge Disposition (PT): shelter facility, swing bed rehabilitation facility Consult Recommendations: [...] as stated. Total Minutes, Physical Therapy: 38 (2229-4733) Henrik Navarrete PTA Pager: [phone] Physical Therapy Inpatient Rehabilitation Department * Nico [...] 0600 and on the weekends please page [phone]. * Laure Ricks PA - 05/19/2023 7:56 [...] Ricks PA-C Interventional Radiology IR Team Pager [phone] * Consuelo Espinoza RN - 05/18/2023 4:13 PM EDT ANGIO NURSING DATABASE Name: Purnima Thacker Date of : 1955 AGE: 67 y.o. Address: [address] [place] [address] (home) Mobile: No relevant phone numbers on [...] fraction I35.0 Mild coronary artery disease by [facility] 11/09/2022 I25.10 Heart failure with reduced [...] and plan. Cynthia Blackburn MD Nephrology Pager: [phone] * Magdalena Puri, LEGEND MAKER - 05/18/2023 10:51 AM EDT Images from the original note were not included. [facility] [place] [address] STRUCTURAL HEART DISEASE CONSULTATION NOTE PRIMARY CARE [...] stenosis. She is now status post TAVR Xzfnk-jh-Dieky with a 23 mm Lai 3 THV 05/12/[address] Sharma. Preliminary findings: Successful right transfemoral TAVR Arcpc-mf-Otfdb with a 23 mm Lai 3 THV. [...] perforation. Interval Events: - 05/12 Transferred to [facility] post- TAVR for pressor/inotropic [...] ejection fraction Mild coronary artery disease by [facility] 11/09/2022 Heart failure with reduced ejection [...] 4 mg 4 mg Intravenous Q8H PRN ZionsvilleMara ernandez APRN4 mg at 05/12/23 0736 pantoprazole EC (Protonix) tablet 40 mg 40 mg Oral Daily MaggieMara ernandez APRN 40 mg at 05/18/23 0826 Or pantoprazole (Protonix) injection 40 mg 40 mg Intravenous Daily [place]ara ernandez APRN 40 mg at 05/12/23 1004 senna-docusate (Pericolace) 8.6-50 mg per tablet 2 tablet 2 tablet Oral Daily [place]villeMara ernandez APRN 2 tablet at 05/16/232111 bisacodyL (Dulcolax) suppository 10 mg 10 mg Rectal Daily PRN MaggieMara ernandez APRN melatonin tablet 6 mg 6 mg Oral Nightly PRN MaggieMara ernandez APRN 6 mg at 05/17/232024 influenza [...] visit (from the past 24 hour(s)). TTE 10/7/23 Interpretation Summary -Left ventricle is severely dilated [...] stenosis. She is now status post TAVR Tzcau-wx-Pdnwj with a 23 mm Lai 3 THV [...] Magdalena Puri APRN Structural Heart Team Pager [phone] Team Office Please see addendum by Dr. Sharma for final plan and recommendations Associated attestation - Antelmo Sharma MD - 05/19/2023 10:52 PM EDT I have reviewed Magdalena Puri APRN's above history and I agree with the details as written. The assessment and plan were formulated in discussion with me and I agree with them as documented. Antelmo Sharma MD Pager [phone] * Nico Palacios PA - 05/18/2023 8:13 [...] 0600 and on the weekends please page [phone]. * Loli Hernandez, PT - 05/17/2023 5:27 [...] [id number]. Nerissa S, Lucinda D, Enedelia P, Smi R, Asad P, Fredo Porter et al. [...] returning home alone. Anticipated Discharge Disposition (PT): shelter facility, swing bed rehabilitation facility Consult Recommendations: [...] plan as stated. Time IN / OUT: 1258-5461 Total Minutes, Physical Therapy: 54 Billing Code: te-sx2, te-f, angely HERNANDEZ PT Pager: [phone] Physical Therapy Inpatient Rehabilitation Department * Cynthia [...] Well controlled. Cynthia Blackburn MD Nephrology Pager: [phone] * Mara Serrano, LEGEND MAKER - 05/17/2023 8:26 AM EDT Cardiac Surgery [...] 0600 and on the weekends please page [phone]. * Guerda Del Valle C - 05/16/2023 10:44 AM EDT Nutrition Services Note - Low Nutrition Acuity Purnima Thacker is a 67 y.o. female Reason for intervention: hospital day 9 Nutrition Plan: Continue diet order Encourage good PO Lasix and Zofran noted Added special serve: open containers Monitor weight Patient scheduled for a hospital day 9 nutrition evaluation. Master Carpenter met with pt at bedside. Pt reports that her appetite and PO has much improved since admission. Denies nausea/vomiting or trouble chewing/swallowing. Master Carpenter provided snack list but pt not interested in adding snacks at this time. Her only concern was that she is worried that she will eat too much which will cause too much pressure in her stomach. Master Carpenter assured pt and suggested eating smaller but [...] Last Bowel Movement: 05/10/23 Guerda Del Valle Director Client * Vinod Juárez PA - 05/16/2023 10:19 [...] 0600 and on the weekends please page [phone]. * Michael Jeffers MD - 05/16/2023 8:11 AM EDT Images from the original note were not included. Hypertension-Nephrology Inpatient Follow-up Purnima Thacker [id number] 1955 ID: 67 y.o. old female seen [...] IRONSAT 12 (L) 05/16/2023 SFOLATE >20.0 07/03/2022 [id number] 07/03/2022 Lab Results Component Value Date [...] Dr. Ayoub. Please contact me at phone: [phone] or pager: [phone] with any questions. Michael Jeffers MD Nephrology [...] -Nephrology consulted, labs and renal US ordered -Loami removed, ambulated around the unit -bilateral pleural [...] 0600 and on the weekends please page [phone]. * Hortencia Cody MD - 05/15/2023 2:07 [...] plt Recent Labs 05/15/23 0050 05/14/23 0110 10/12/23 0115 WBC 9.1 11.2* 8.6 HGB 7.2* [...] lb 5 oz) Micro: Recent Labs 05/11/23 1922 URINECULTURE [...] not included. Hypertension-Nephrology Inpatient Follow-up Purnima Thacker [id number] 1955 ID: 67 y.o. old female seen [...] HGB 7.8 (L) 05/13/2023 SFOLATE >20.0 07/03/2022 [id number] 07/03/2022 Lab Results Component Value Date [...] Dr. Ayoub. Please contact me at phone: [phone] or pager: [phone] with any questions. Michael Jeffers MD Nephrology [...] outlined inthis evaluation. HAVEN BA, PT Pager: [phone] Physical Therapy Inpatient Rehabilitation Department Time IN / OUT: 7112-1250 Total time: Total Minutes, Physical Therapy: 30 [...] PAP 42/14; CI 3.1 Drips: Mil 0.125 10/12 0701 - 05/14 07 In: 1119.6 [P.O.:660; I.V.:449.6] Out: 125 [Urine:125] [...] 0600 and on the weekends please page [phone]. * Antelmo Sharma MD - 05/14/2023 7:56 AM EDT Images from the original note were not included. [facility] [place] [address] STRUCTURAL HEART DISEASE CONSULTATION NOTE PRIMARY CARE [...] stenosis. She is now status post TAVR Jbsse-qx-Xccua with a 23 mm Lai 3 THV 05/12/[address] Sharma. Preliminary findings: Successful right transfemoral TAVR Fzbtt-qx-Whlmz with a 23 mm Lai 3 THV. [...] perforation. Interval Events: - 05/12 Transferred to [facility] post- TAVR for pressor/inotropic support [...] ejection fraction Mild coronary artery disease by [facility] 11/09/2022 Heart failure with reduced ejection [...] stenosis. She is now status post TAVR Woejh-hu-Dxfuj with a 23 mm Lai 3 THV 05/12/[address] Sharma. Janet TAVR case notable for coronary LAD protective MINNA. Status post TAVR, the patient was transferred to [facility] for pressor and inotropic support. Pressors weaned overnight 05/12. Cardiac indices by thermodilution remained >3 with continued Milrinone 0.125 mcg/kg/min prior to PAC removal. EKG todayNSR with stable MD/QRS intervals. Hemoglobin slowly down-trending (8.2-> 7.8-> 7.2). [...] Brody Kaplan APRN Structural Heart Team Pager [phone] Team Office Please see addendum by Dr. [...] exposure. Nephrology consultationtoday. Antelmo Sharma MD Pager [phone] * Antelmo Cardenas RN - 05/14/2023 5:18 AM EDT Pt AOx4, complaining of mild/moderate generalized pain (states her Meloxicam is effective at home) currently refusing prn oxycodone. NAEON, hemodynamically stable on Milrinone, Maps >65, ST in clq175's down to NSR with frequent multifocal PVC's. Remains on 2L Nasal cannula with congested but largely unproductive cough. Remains grossly oliguric, creatinine bumped to 4.8 from 3.15 on midnight labs, with electrolytes remaining stable. Last BM 05/10, took evening pericolace, some abdominal tenderness alleviated with passing flatus. Ambulating well with nurse assist to bed and chair with minimal symptoms. * Antelmo Sharam MD - 05/13/2023 12:09 PM EDT Images from the original note were not included. [facility] [place] [address] [address] STRUCTURAL HEART DISEASE PROGRESS NOTE PRIMARY CARE [...] stenosis. She is now status post TAVR Idtml-ov-Qpyci with a 23 mm Lai 3 THV 05/12/[address] Sharma. Preliminary findings: Successful right transfemoral TAVR Zdtsi-rl-Xgqbj with a 23 mm Lai 3 THV. [...] ejection fraction Mild coronary artery disease by [facility] 11/09/2022 Heart failure with reduced ejection [...] stenosis. She is now status post TAVR Hrrqr-oi-Ysdba with a 23 mm Lai 3 THV 05/12/[address] Sharma. Janet TAVR case notable for coronary LAD protective MINNA. Status post TAVR, the patient was transferred to [facility] for pressor and inotropic support. Pressors weaned overnight. Cardiac indices by thermodilution remain greater than 3 with continued Milrinone 0.125 mcg/kg/min. EKG today NSR with stable MD/QRS intervals. Hemoglobin 7.8 today from 8.5, likely [...] days with echo, CBC, and BMP Brody Kapaln APRN Structural Heart Team Pager [phone] Team Office Please see addendum by Dr. [...] DAPT moving forward. Antelmo Sharma MD Pager [phone] * Bonita Miguel PA - 05/13/2023 8:30 AM EDT Cardiac Surgery Progress Note Purnima Thacker is a 67 y.o. 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 PMH of s/p tissue AVR (2017), mixed connective tissue disease HTN, HLD, NICOLAS, diverticulosis, rosacea, essential tremor, and depression. 24h Events: From cardiac cath rn for above procedure Extubated at ~1600 to [...] soft b/l, no evidence of hematoma. Tubes/Lines/Drains: Loami, RIJ, A-line, Art, PIV Assessment/Plan: 67 y.o. [...] 0600 and on the weekends please page [phone]. * Onelia Schwartz MD - 05/12/2023 1:44 [...] ejection fraction Mild coronary artery disease by [facility] 11/09/2022 Heart failure with reduced ejection [...] FiO2 weaned to 40%. 1105: ABG 7.34/42/73/22 3517-7860: SBT performed and passed on these settings [...] PCP: Magdalena Acosta MD PCP phone number: [phone] Date of Admission: 05/08/2023 ( Hospital Day [...] mcg/kg/min (05/12/23599) [SEP Hold] DOBUTamine Stopped (05/12/23 0120) [SEP Hold] NORepinephrine 6 mcg/min (05/12/23 06) Ventilator Settings: Mode: , SET RR: TV: PEEP: FiO2: VARIABLES PATIENT RR: PIP: Pplateau: SpO2: OUTPUT Resp: (!) 31 SpO2: 94 % ABG (Arterial Blood Gas) Recent Labs 05/12/23 0700 05/12/2331705/12/2310505/11/23193905/11/23 1447 PHART -- 7.34* 7.34* -- -- HHE4AVM -- 30* 30* -- -- PO2ART -- 72* 81* -- -- UBZ0QFL -- 16.0* 15.7* -- -- LACTATEVEN 2.4* 2.7* 2.7* 4.8* 2.9* VBG (Venous Blood Gas) Recent Labs 05/12/23 0700 05/12/238 05/12/2310505/11/23193905/11/23 144 LACTATEVEN 2.4* 2.7* 2.7* 4.8* 2.9* Mixed Venous Sat Recent Labs 05/12/23 0508 05/12/23 0321 05/12/23 0114 05/12/23 0030 Q9LQSN6 30.7 32.7 37.3 25.1 Objective: Vitals Last [...] 95.1* 97.1* 96.2* 97.0* Recent Labs 05/12/2359905/12/2310405/11/232 05/10/23 0228 05/09/23 0400 05/08/23 1600 05/08/23 [...] please contact the health child day care provider that requested your imaging first. Electronically signed by: ALIX RUVALCABA MD, [facility] ([phone]), at 05/10/2023 1:[address] Cardiac for [...] please contact the health child day care provider that requested your imaging first. Electronically signed by: Cullen Narayanan MD, [facility] ([phone]), at 05/11/2023 4:[address] Angiogram Abdomen [...] please contact the health child day care provider that requested your imaging first. Electronically signed by: Eileen Gomes MD, [facility] ([phone]), at 05/11/2023 2:42 PM XR Chest One [...] please contact the health child day care provider that requested your imaging first. Chest One [...] please contact the health child day care provider that requested your imaging first. Assessment & [...] and inotrope. 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 * Antelmo Sharma MD - 05/11/2023 9:45 AM EDT Images from the original note were not included. [facility] [place] [address] [place] [address] STRUCTURAL HEART DISEASE CONSULTATION NOTE PRIMARY CARE [...] who had been referred for possible TAVR sesxb-gt-dpxei evaluation. Her primary symptoms are of dyspnea [...] [facility]. 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 She states [...] ejection fraction Mild coronary artery disease by [facility] 11/09/2022 Heart failure with reduced ejection [...] 120 20 99/77 96 % -- -- 10/10/23 0839 -- (!) 115 bpm -- 21 [...] hour(s)) Lactate, whole blood, send to lab ([facility]) Result Value Ref Range Lactate WB 3.1 (H) 0.5 - 2.2 mmol/L Heparin (unfractionated) Level Result Value Ref Range Heparin UFH Level 0.46 IU/mL Lactate, whole blood, send to lab ([facility]) Result Value Ref Range Lactate WB 1.8 [...] leads Confirmed by MD Harshil, Enrique Bell ([id number]) on 05/10/2023 8:11:46 AM Cardiac Cath 11/09/2022 [...] alert Dr. Hudson of her inpatient status, [place] primary cardiac surgeon. Based on recent clinic visit, tentative plan had been for TAVR JANET issa ferrera given her chronological age. Cardiac cath 11/09/2022 notable for non-obstructive coronary disease. TAVR CTAs planned for today. Will review her case with cardiac surgery to determine best timing and therapies for her valve intervention. Addendum 05/11/2023 6:48 PM Due to decompensating HFrEF, she was transferred to [facility] this afternoon for further management. TAVR CT imaging support for adequate ileofemoral access. Given her acute deterioration today, will planfor RTF TAVR on 05/12/2023. Brody Kaplan APRN Structural Heart Disease Pager [phone] Please see addendum by Dr. Sharma for [...] NPO past midnight, consent signed and dated. Antemlo Sharma MD Pager [phone] * Harini Lance MD - 05/11/2023 6:06 AM EDT Images from the original note were not included. Cardiology Progress Note Patient info: Name: Purnima Thacker : 1955 PCP: Magdalena Acosta MD PCP phone number: [phone] Date of Admission: 05/08/2023 ( Hospital Day [...] please contact the health child day care provider that requested your imaging first. 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, 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) Mild coronary artery disease by [facility] 11/09/2022 Hyperlipidemia, unspecified NICOLAS (obstructive sleep [...] PCP: Magdalena Acosta MD PCP phone number: [phone] Date of Admission: 05/08/2023 ( Hospital Day [...] 040 76.8 kg (169 lb 5 oz) 05/08/23 [...] 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) Mild coronary artery disease by [facility] 11/09/2022 Hyperlipidemia, unspecified INCOLAS (obstructive sleep apnea) Resolved Hospital Problems No [...] PCP: Magdalena Acosta MD PCP phone number: [phone] Date of Admission: 05/08/2023 ( Hospital Day [...] Gas) No results found for: PHART, PO2ART, FGY2IAH, ANA0RJA Microbiology: Microbiology Results (Last 30 days) No [...] PPx: Diet: Daily Healthy Menu Choices/Cardiac diet ([facility]-Diet) Lines: Peripheral IV Line - Single Lumen [...] 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) Mild coronary artery disease by [facility] 11/09/2022 Hyperlipidemia, unspecified NICOLAS (obstructive sleep [...] fraction I35.0 Mild coronary artery disease by [facility] 11/09/2022 I25.10 Heart failure with reduced ejection fraction due to heart valve disease I50.20, I38 Cardiogenic shock R57.0 S/P TAVR (transcatheter aortic valve replacement) Z95.2 Past Medical History: Diagnosis Date Anemia Past Surgical History: Procedure Laterality Date PRG CATH PLVT LEFT HEART CATH & ARTS W/INJ & ANGIO IMG S&I N/A 11/09/2022 CORONARY ANGIOGRAPHY; W [facility],POSSIBLE PCI (WRVU 5.6) performed by Mario Alberto Escobedo MD at [facility] CATH LABS PRO AORTOPLAS FOR SUPRAVALV STEN N/A 09/21/2016 @AORTOPLASTY FOR SUPRAVALVULAR STENOSIS (WRVU 29.33) performed by Alirio Hudson MD at [facility] MAIN OR PRO REPLACEMENT PROSTHETIC AORTIC VALVE OPEN W CARDIOPULMONARY BYPASS HOMOGRF/STENT N/A 09/21/2016 @REPLACE AORTIC VALVE, OPEN, W\CPB, W\PROSTHETIC VALVE (WRVU 41.32) performed by Alirio Hudson MD at [facility] MAIN OR Social History and Habits: [...] fraction I35.0 Mild coronary artery disease by [facility] 11/09/2022 I25.10 Heart failure with reduced ejection fraction due to heart valve disease I50.20, I38 Cardiogenic shock R57.0 S/P TAVR (transcatheter aortic valve replacement) Z95.2 Past Medical History: Diagnosis Date Anemia Past Surgical History: Procedure Laterality Date PRG CATH PLVT LEFT HEART CATH & ARTS W/INJ & ANGIO IMG S&I N/A 11/09/2022 CORONARY ANGIOGRAPHY; W [facility],POSSIBLE PCI (WRVU 5.6) performed by Mario Alberto Escobedo MD at [facility] CATH LABS PRO AORTOPLAS FOR SUPRAVALV STEN N/A 09/21/2016 @AORTOPLASTY FOR SUPRAVALVULAR STENOSIS (WRVU 29.33) performed by Alirio Hudson MD at [facility] MAIN OR PRO REPLACEMENT PROSTHETIC AORTIC VALVE OPEN W CARDIOPULMONARY BYPASS HOMOGRF/STENT N/A 09/21/2016 @REPLACE AORTIC VALVE, OPEN, W\CPB, W\PROSTHETIC VALVE (WRVU 41.32) performed by Alirio Hudson MD at [facility] MAIN OR Social History and Habits: [...] days, which prompted her to present to [employer]. She also endorses some intermittent retrosternal chest pain with exertion.She endorses some dizziness with exertion, but has not gotten faint or passed out. At [employer] she was noted to be afebrile, blood pressure 105/64, HR 120s, satting 95% on 2L NC. Labs from [employer] are below, of note she had [...] 89/59, which prompted the transfer to us. [employer] labs: CBC - Hgb 10.5 CMP - Cr 1.1 BNP 97175 HsTrop 1358 Lactate 1.6 D-dimer 1183 Interval History Patient was admitted to [facility] due to concern on low [...] Klaudia Reid MD Internal Medicine PGY-1 Pager [phone], M1-S1 Service Associated attestation - Juan Luis Gonzalez MD - 05/08/2023 10:00 PM EDT Cardiology Attending Addendum Active Hospital Problems Diagnosis Symptomatic severe aortic stenosis with low ejection fraction Heart failure with reduced ejection fraction due to heart valve disease Mild coronary artery disease by [facility] 11/09/2022 Hyperlipidemia, unspecified History of aortic [...] PCP: Magdalena Acosta MD PCP phone number: [phone] Date of Admission: 05/08/2023 ( Hospital Day 0 days ) Attending:Enrique Chua MD ID: Purnima Thacker is a 67 y.o. female w/ PMH of s/p bioprosthetic AVR in 2016 with recent concern for severe restenosis, HTN, HLD, mixed connective tissue disease, who presents in transfer from [employer] with worsening BONILLA and weight gain [...] four days, which promptedher to present to [employer]. She also endorses some intermittent retrosternal chest pain with exertion. She endorses some dizziness with exertion, but has not gotten faint or passed out. At [employer] she was noted to be afebrile, blood pressure 105/64, HR 120s, satting 95% on 2L NC. Labs from [employer] are below, of note she had [...] 89/59, which prompted the transfer to us. [employer] labs: CBC - Hgb 10.5 CMP - Cr 1.1 BNP 80375 HsTrop 1358 Lactate 1.6 D-dimer 1183 Vasoactive [...] tissue disease, who presents in [facility] [employer] [facility] BONILLA and weight gain concerning [...] #Routine Diet: Daily Healthy Menu Choices/Cardiac diet ([facility]-Diet) DVT Prophylaxis: heparin gtt GI Prophylaxis: none [...] to the planned procedure. Hand Hygiene: The community outreach specialist did perform hand hygiene prior to arterial [...] Successful arterial line placement. Crispin Timmons MD Personal Injury Attorney Associated attestation - Onelia Schwartz MD - [...] (flow was non-pulsatile) and appearance of blood. Loami-Marily catheter was placed and locked at 55 [...] information for follow-up [facility] [place] [address] [place] [address] Cardiac Rehab, [place] [id number] [address] [facility] [place] [address] [place] [address] Transportation: family or friend will provide *Brother [...] Type: *No Product type* / Secondary Insurance: [employer] [place] Prescription Coverage: Yes This plan was formulated with input from patient, family (please identify family/friend involved ifapplicable) and team. All are in agreement with plan. Aliza Martino MSN-Ed, RN ACM medical director occupational health Office of Care Management Pager #[phone] * Plan of Care - Favian Mckeon [...] Lana Chaudhary RN - 05/21/2023 4:46 PM [facility] OFFICE OF CARE MANAGEMENT [...] Type: *No Product type* / Secondary Insurance: [employer] [facility] [place] Last Physical Therapy Recommendation: (Home with assist from Brother; Friend arriving Tues) with walker, front wheeled Last Occupational Therapy Recommendation: swing bed rehabilitation facility, shelter facility (vs home with support for IADLs) with walker, front wheeled, shower chair Plan for discharge is: Home w/ Services Outpatient Agency/Support Group Needs: Homecare agency Home Health Services: Physical Therapy, Occupational Therapy Agency Referrals: I have met with the patient to: discuss discharge planning needs. describing our affiliations within the [facility] and educate about their right to choose where referrals are sent. provide a list of Home Health Agencies / Durable Medical Equipment vendors which serve their preferred geographic area. They have requested referrals to: [facility] [address] [place] [address] [facility] [place], [place] Note routed to a Sack Keeper who will communicate referrals to facilities and provide any required information. Transportation: family or friend will provide *Brother Raymond on Tuesday 05/22 at 1000 Barriers to discharge: Does not have home 22/02 assist available until tomorrow Tuesday 05/22 Plan going forward: Discharge home into the 22/02 home care of brother Raymond with [facility] PT/OT services on Tuesday 05/22 [...] Attending: All Staff: Staff Role Juanita Almaguer Promotions Manager Laure Ricks PA Physician Rn Med Surg Magdalena Rodriguez RN Radiology Nurse Consuelo Espinoza worksite wellness practitioner Nurse Post-operative diagnosis/Indication: Right pleural effusion Name [...] Type: *No Product type* / Secondary Insurance: [employer] [facility] [place] Last Physical Therapy Recommendation: shelter facility, swing bed rehabilitation facility with to be determined Last Occupational Therapy Recommendation: with Plan for discharge is: Long Term Facility / Swing Outpatient Agency/Support Group Needs: None Agency Referrals: Based on discussions with the multi-disciplinary healthcare team, the patient would benefit from SNF / Swing level of care at discharge. I have met with the patient to: discuss discharge planning needs. provide the [facility], Office of Care Management letter from the Educational Speech Language Clinician pertaining to rehab referrals. provide a letter describing our affiliations within the [facility] and educate about their right to choose where referrals are sent. provide the CMS Star Quality Rating handout. review the different levels of rehab including SNF, swing, and acute. provide a list of facilities within their preferred geographic area. request that they provide at least three choices for referral. They have requested referrals to: [facility] [address] [place] [address] [facility] ([facility]) [address] [place] [address] (Accepts pts only after exhausting all other local SNF options) [facility] (Swing) ([facility]) [address] [place] [address] PHONE: [phone] FAX: [phone] [facility] ([facility]) [facility]) [address] [place] [address] PHONE: [phone] FAX: [phone] Note routed to a Sack Keeper who will communicate referrals to facilities and [...] Crenshaw RN - 05/17/2023 10:25 AM EDT [facility] CARDIAC REHABILITATION Purnima Thacker was seen today regarding participation in the outpatient Phase 2 Cardiac Rehabilitation at [employer]. The patient agrees to a [...] from the original note were not included. [facility] NEPHROLOGY/HYPERTENSION CONSULT NOTE PATIENT: Purnima Thacker [...] in her course. She ultimately underwent a bbzua-eg-smhkw procedure on and tolerated it well (see operative details). [facility] and sed[facility] on some pressors support.. [...] 112* 130* -- 186 Chemistry: Recent Labs 05/14/2310905/13/2311423 1405 05/12/23 0600 NA 132* 132* -- [...] 1423 05/12/23 1105 PHART 7.39 7.37 7.34* SQK6FSW 33* 36 42 PO2ART 101 102 73* YMK0HTC 19.5* 20.4 22.1 LACTATEVEN 1.5 1.8 2.8* CXH9GQP 40 40 40 PFRATIOART2 252 255 182 VBG (Venous Blood Gas) Recent Labs 05/12/23 1557 05/12/23 1423 05/12/23 1105 LACTATEVEN 1.5 1.8 2.8* Mixed Venous Sat Recent Labs 05/12/23 1425 05/12/23 0508 05/12/23 0321 C8WIJE2 59.9 30.7 32.7 LFT's: Recent Labs 05/14/23 0110 05/13/23 0115 05/12/23 0600 BILITOT 0.4 0.5 0.9 BILIDIR -- 0.3 -- ALBUMIN 3.6 3.0* 3.5 ALKPHOS 86 85 100 ALT 437* 903* 1,174* AST 319* 792* 1,435* No results found for: UPROTCREAT No results found for: TPROTEINPEP, ALBELECT No results found for: MICROALBUR, [id number] No results found for: HA1C Lab Results Component Value Date CALCIUM 8.5 05/14/2023 PHOS 4.7 (H) 05/08/2023 No results found for: 25OHVITD MICROBIOLOGY: ProcedureComponentValueUnitsDate/TimeUrine culture [[id number]]Collected: 05/11/231921Lab Status: Final resultSpecimen: Clean Catch UrineUpdated: [...] consulted for assessment if this patient needs RN ASSESSMENT. Atthis time, we can likely hold off on RN ASSESSMENT. Her volume status appears sufficient and her metabolic kanwal angements with mild acidosis is not too profound. Patient does not have significant uremic symptoms. We can hold off for today, but the patient is a high risk candidate for needing RN ASSESSMENT in future daysespecially if her Cr curve trends the direction it is for the next several days. S/p Hxwqx-pt-Xqydt TF TAVR: Management per cardiology. On milrinone gtt. PLAN: - Please obtain following diagnostics: renal US, urinalysis, urine prot/Cr ratio, urine albumin/Cr ratio, CK, uric acid, serum osmol, daily VBGs - No acute indications for RN ASSESSMENT/dialysis. We will keep close eye on Cr trend, volume status, and metabolics to ensure patient still does not need RN ASSESSMENT as she ensues intrinsic renal recovery - [...] M.H.Katherine., M.A. PGY-V Nephrology-Hypertension Fellow Page # [phone] [facility] [address] 2[address] floor, [employer] [address] [place] [address] * Care Management - Mario Alberto Olmos [...] for a TAVR at 730. Returned to [facility] at 0945. Was intubated in the cardiac cath rn due to agitation. Maintained bedrest for 5 [...] Operative Note Patient Name: Purnima Thacker : [id number] MR#: [id number] Case Date: 05/12/2023 Surgeon: Surgeon(s) and Role: Panel 1: * Antelmo Sharma MD - Primary * Rebekah Tejeda MD - Fellow - Assisting Panel 2: * Alirio Husdon MD - Primary Panel 3: * Enrique [...] procedure Note: Patient Name: Purnima Thacker : [id number] MR#: [id number] Case Date: 05/12/2023 Operators Surgeon: Surgeon(s) and [...] main with 4.0 x 30 mm Resolute [facility] Eluting Stent Perclose x1 + Angio-seal 8 Fr x1, RFA Manual pressure, LFA Manual pressure, LFV Endotracheal intubation (performed by cardiac anesthesia) Preliminary findings: Successful right transfemoral TAVR Nupcx-gz-Ryfbp with a 23 mm Lai 3 THV. [...] MD, M.Sc. Structural Heart Disease Fellow Pager :[phone] Antelmo Sharma MD Pager [phone] * Op Note - Alirio Hudson MD - 05/12/2023 7:37 AM EDT Preop Diagnosis: Severe aortic stenosis, symptomatic. Postop Diagnosis: Same. Procedure: Transfemoral TAVR procedure with 23mm valve. Surgeon: Alirio Hudson M.D. [employer] Supervisor: Danny CULP Procedure: The patient was taken to the cardiac cath rn. The patient had monitored anesthesia care. After [...] Brody Kaplan APRN Structural Heart Disease Pager [phone] * Consult Note - Vinod Juárez PA - 05/11/2023 2:16 PM EDT Cardiac Surgery Consultation Note Purnima Thacker is seen at the request of Dr. Hollins for the evaluation of prosthetic . HPI: Purnima Thacekr is a 67 y.o. 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 [facility] [place] [address] [place] [address] STRUCTURAL HEART DISEASE CONSULTATION NOTE PRIMARY CARE [...] who had been referred for possible TAVR yvlzl-xt-otnik evaluation. Her primary symptoms are of dyspnea [...] [facility]. 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 PROBLEM LIST: Patient Active Problem List Diagnosis Symptomatic severe aortic stenosis with low ejection fraction Mild coronary artery disease by [facility] 11/09/2022 Heart failure with reduced ejection [...] hour(s)) Lactate, whole blood, send to lab ([facility]) Result Value Ref Range Lactate WB 1.8 [...] leads Confirmed by MD Harshil, Enrique Bell ([id number]) on 05/10/2023 8:11:46 AM Assessment and Plan: [...] alert Dr. Hudson of her inpatient status, [place] primary cardiac surgeon. Based on recent clinic [...] Antelmo Sharma MD Structural Heart Disease Pager [phone] * Plan of Care - Sarahi Nice RN - 05/10/2023 3:55 AM EDTSumavis: RN Note and Care Plan Sarahi Nice RN assumed care of pt at time of their arrival to room 362 from [facility]. Pt voices shortness of breath [...] VTE (Venous Thromboembolism) Risk Flowsheets (Taken 05/09/2023 1066) VTE Prevention/Management: anticoagulant therapy Intervention: Prevent Infection [...] listening utilized Taken 05/08/20231999 by Alivia Kauffman supervisor putty and caluking/Support System Care: self-care encouraged support provided Problem: [...] Transfer from another hospital Location: admitted from [employer] Reason for Hospitalization: Critical aortic stenosis, causing symptoms Past medical History: Past Medical History: Diagnosis Date Anemia Hospitalizations Within the Past 30 Days: no previous admission in last 30 days Current Decision-Making Capacity: Self If AD's have not been completed the following surrogate would be surrogate decision maker per [place] surrogate decision making law. (Only good for 180 days) Any patient receiving care in [place] must abide by [place] law. The hierarchy for surrogate decision making [...] (i) The agent with financial power of personal injury attorney or a conservator appointed in accordance [...] DME: none Home Address confirmed as: [address] [place] [address] Social & Family Supports: All names listed [...] Product type* / Secondary Insurance: [facility] ONLY if patient has Medicare A&B - Does this patient have secondary insurance?: Yes ; Prescription Coverage: Yes Preferred Pharmacy: updated to [facility] in [facility] Status: Patient is a : No Primary Care Provider confirmed: Magdalena Acosta MD [phone] Patient/Caregiver Goals of Treatment: Potential Needs for [...] transition of care planning. Alie Bradshaw RN, Pager-[phone] * Plan of Care - Emily Lucero RN - 05/08/2023 2:54 PM EDT OUTCOME EVALUATION NOTE: OUTCOME SUMMARY: Pt arrived from [facility]. A&O, no c/o pain or SOB. [...] 11:30 AM EST Office Visit [place] [address] Magdalena Peralta MD [facility] [place] [address] 03/01/2025 4:15 PM EDT Office Visit Dermatology at [place] [address] [place] [address] Marek Bonilla MD [address], [place] [address] Scheduled Referrals Name Type Priority Associated Diagnoses [...] Heart Cath W/Inj L Ventriculography, Img S&I (40030) 05/12/2023 7:37 AM EDT Aortic valve stenosis, [...] AM EST Narrative 07/08/2023 12:26 PM EST [address] [place] [address] ? Echocardiogram Report Name: PURNIMA THACKER ?Study Date: 07/08/2023 10:31 AMBP: 118/60 mmHg ? Patient Location: 4A : 1955 ? Height: 155 cm ? Account: [id number] Age: 67 yrs ? Weight: 74 kg Gender: Female ?BSA: 1.7 m2 Ordering Physician: ALIRIO HUDSON Referring Physician: VINOD JUÁREZ Performed By: Felicia Norris RDCS Reason For Study: S/P TAVR Exam Location: [facility]. Interpretation Summary Left ventricular systolic function is [...] no significant change (post-procedure). Procedure Limited - 71058. Doppler - 64961. Color Doppler - 00090. Satisfactory quality. This study is limited because [...] Note Lee Kincaid MD - 07/08/2023 [address] [place] [address] Echocardiogram Report Name: PURNIMA THACKER Study Date: 0:31 AMBP: 118/60 mmHg Patient Location: : 1955 Height: 155 cm Account: [id number] Age: 67 yrs Weight: 74 kg Gender: Female BSA: 1.7 m2 Ordering Physician: ALIRIO HUDSON Referring Physician: VINOD JUÁREZ Performed By: Felicia Norris RDCS Reason For Study: S/P TAVR Exam Location: [facility]. Interpretation Summary Left ventricular systolic function is [...] is nosignificant change (post-procedure). Procedure Limited - 56320. Doppler - 88032. Color Doppler - 84417. Satisfactoryquality. This study is limited because of [...] Lab Alirio Hudson MD CHEMISTRY ORDERABLE S [facility] [place] [address] * (ABNORMAL) Basic Metabolic Panel (non-fasting) (05/22/2023 3:57 AM EDT) Glucose Lvl 88 65 - 199 mg/dL [facility] Comment:Diabetes: >=200 mg/d L plus symptoms BUN 21(H) 8 - 18 mg/dL [facility] Creatinine 0.69(L) 0.70 - 1.20 mg/dL [facility] Sodium 136 135 - 145 mmol/L [facility] Potassium 3.6 3.5 - 5.0 mmol/L [facility] Comment: Please note: ??Patients with WBC >100,000 may have falsely elevated Potassium levels. ??For accurate Potassium quantification in these patients send serum separator tube (gold top) for subsequent determinations. ??Contact the Clinical Chemistry Laboratory if there are any questions. Chloride 102 98 - 107 mmol/L [facility] CO2 23 22 - 31 mmol/L [facility] Anion Gap 11 5 - 15 mmol/L [facility] Calcium 8.6 8.5 - 10.5 mg/dL [facility] Estimated GFR 95 >=60 mL/min/1. 73 m?? [facility] Agency Comment Spec In Lab Mara Serrano LEGEND MAKER CHEMISTRY ORDERABL ES [facility] [place] [address] * (ABNORMAL) Basic Metabolic Panel (non-fasting) (05/21/2023 5:06 AM EDT) Glucose Lvl 87 65 - 199 mg/dL [facility] Comment:Diabetes: >=200 mg/d L plus symptoms BUN 25(H) 8 - 18 mg/dL [facility] Creatinine 0.84 0.70 - 1.20 mg/dL [facility] Sodium 136 135 - 145 mmol/L [facility] Potassium 3.6 3.5 - 5.0 mmol/L [facility] Comment: Please note: ??Patients with WBC >100,000 may have falsely elevated Potassium levels. ??For accurate Potassium quantification in these patients send serum separator tube (gold top) for subsequent determinations. ??Contact the Clinical Chemistry Laboratory if there are any questions. Chloride 102 98 - 107 mmol/L [facility] CO2 26 22 - 31 mmol/L [facility] Anion Gap 8 5 - 15 mmol/L [facility] Calcium 8.9 8.5 - 10.5 mg/dL [facility] Estimated GFR 76 >=60 mL/min/1. 73 m?? [facility] [...] Agency Comment Spec In Lab Mara Serrano LEGEND MAKER CHEMISTRY ORDERABL ES [facility] [place] [address] * Lavender Tube HOLD (05/20/2023 2:52 AM EDT) [facility] Lavender Hold Sample in lab. [facility] Blood Venous Draw / Unknown 05/20/2023 2:52 AM EDT 05/20/2023 3:04 AM EDT Mara Serrano APRN HEMATOLOGY ORDERAB LES Performing Organization Address City/[facility]/ZIP Co de Phone Number [facility] [place] [address] * (ABNORMAL) Basic Metabolic Panel (non-fasting) (05/20/2023 2:52 AM EDT) [facility] Glucose Lvl 152 65 - 199 mg/dL [facility] Comment:Diabetes: >=200 mg/d L plus symptoms BUN 33(H) 8 - 18 mg/dL [facility] Creatinine 0.82 0.70 - 1.20 mg/dL [facility] Sodium 137 135 - 145 mmol/L [facility] Potassium 3.7 3.5 - 5.0 mmol/L [facility] Comment: Please note: ??Patients with WBC >100,000 may have falsely elevated Potassium levels. ??For accurate Potassium quantification in these patients send serum separator tube (gold top) for subsequent determinations. ??Contact the Clinical Chemistry Laboratory if there are any questions. Chloride 99 98 - 107 mmol/L [facility] CO2 22 22 - 31 mmol/L [facility] Anion Gap 16(H) 5 - 15 mmol/L [facility] Calcium 9.0 8.5 - 10.5 mg/dL [facility] Estimated GFR 78 >=60 mL/min/1. 73 m?? [facility] [...] Agency Comment Spec In Lab Mara Thomasfield LEGEND MAKER CHEMISTRY ORDERABL ES Performing Organization Address [facility] de Phone Number [facility] [place] [address] * (ABNORMAL) Potassium (05/20/2023 2:52 AM EDT) [facility] Signature Potassium 3.4(L) 3.5 - 5.0 mmol/L [facility] [...] Agency Comment Spec In Lab Mara Thomasfield LEGEND MAKER CHEMISTRY ORDERABL ES Performing Organization Address [facility] de Phone Number [facility] [place] [address] * XR Chest PA & Lateral (Generic) [...] please contact the health child day care provider that requested your imaging first. ? Electronically signed by: Chyna Johnson MD, [facility] ??([phone]), at 05/19/2023 2:19 PM Narrative 05/19/2023 2:19 [...] questions please contactthe health child day care provider that requested your imaging first. Electronically signed by: Chyna Johnson MD, [facility]([phone]), at 05/19/2023 2:19 PM Alirio Hudson MD IMG DX ORDERABLES * (ABNORMAL) Basic Metabolic Panel (non-fasting) (05/19/2023 5:49 AM EDT) Glucose Lvl 93 65 - 199 mg/dL [facility] Comment:Diabetes: >=200 mg/d L plus symptoms BUN 45(H) 8 - 18 mg/dL [facility] Creatinine 1.02 0.70 - 1.20 mg/dL [facility] Sodium 138 135 - 145 mmol/L [facility] Potassium 3.9 3.5 - 5.0 mmol/L [facility] Comment: Please note: ??Patients with WBC >100,000 may have falsely elevated Potassium levels. ??For accurate Potassium quantification in these patients send serum separator tube (gold top) for subsequent determinations. ??Contact the Clinical Chemistry Laboratory if there are any questions. Chloride 102 98 - 107 mmol/L [facility] CO2 26 22 - 31 mmol/L [facility] Anion Gap 10 5 - 15 mmol/L [facility] Calcium 9.7 8.5 - 10.5 mg/dL [facility] Estimated GFR 60 >=60 mL/min/1. 73 m?? [facility] [...] Agency Comment Spec In Lab Mara Serrano LEGEND MAKER CHEMISTRY ORDERABL ES [facility] [place] [address] * IR Chest Tube Placement Right (05/18/2023 [...] Glucose Lvl 95 65 - 199 mg/dL [facility] Comment:Diabetes: >=200 mg/d L plus symptoms BUN 71(H) 8 - 18 mg/dL [facility] Comment:result rechecked-JSJ Creatinine 1.64(H) 0.70 - 1.20 mg/dL [facility] Comment:result rechecked-JSJ Sodium 137 135 - 145 mmol/L [facility] Potassium 3.7 3.5 - 5.0 mmol/L [facility] Comment: Please note: ??Patients with WBC >100,000 may have falsely elevated Potassium levels. ??For accurate Potassium quantification in these patients send serum separator tube (gold top) for subsequent determinations. ??Contact the Clinical Chemistry Laboratory if there are any questions. Chloride 100 98 - 107 mmol/L [facility] CO2 24 22 - 31 mmol/L [facility] Anion Gap 13 5 - 15 mmol/L [facility] Calcium 9.7 8.5 - 10.5 mg/dL [facility] Estimated GFR 34(L) >=60 mL/min/1. 73 m?? [facility] [...] Agency Comment Spec In Lab Mara Serrano LEGEND MAKER CHEMISTRY ORDERABL ES [facility] [place] [address] * XR Chest PA & Lateral (Generic) [...] please contact the health child day care provider that requested your imaging first. ? Narrative [...] questions please contactthe health child day care provider that requested your imaging first. Electronically signed by: Ghassan Reyes MD, [facility]([phone]), at 05/17/2023 11:46 AM Alirio Hudson MD IMG DX ORDERABLES * (ABNORMAL) Comprehensive metabolic panel (non-fasting) (05/17/2023 4:35 AM EDT) Glucose Lvl 89 65 - 199 mg/dL [facility] Comment:Diabetes: >=200 mg/d L plus symptoms BUN 97(H) 8 - 18 mg/dL [facility] Creatinine 2.97(H) 0.70 - 1.20 mg/dL [facility] Comment:result rechecked-[facility] Sodium 135 135 - 145 mmol/L [facility] Potassium 4.1 3.5 - 5.0 mmol/L [facility] Comment: Please note: ??Patients with WBC >100,000 may have falsely elevated Potassium levels. ??For accurate Potassium quantification in these patients send serum separator tube (gold top) for subsequent determinations. ??Contact the Clinical Chemistry Laboratory if there are any questions. Chloride 97(L) 98 - 107 mmol/L [facility] CO2 22 22 - 31 mmol/L [facility] Anion Gap 16(H) 5 - 15 mmol/L [facility] Calcium 9.6 8.5 - 10.5 mg/dL [facility] Total Protein 6.5 6.1 - 8.0 g/dL [facility] Albumin 3.7 3.2 - 5.2 g/dL [facility] AST 58(H) 0 - 30 unit/L [facility] ALT 66(H) 0 - 30 unit/L [facility] Alk Phos 86 35 - 105 unit/L [facility] Total Bilirubin 0.6 0.2 - 1.3 mg/dL [facility] Estimated GFR 17(L) >=60 mL/min/1. 73 m?? [facility] [...] MD CHEMISTRY ORDERABLE S Performing Organization Address [facility]/ZIP Co de Phone Number [facility] [place] [address] * Potassium (05/16/2023 11:15 PM EDT) Potassium 3.7 3.5 - 5.0 mmol/L [facility] [...] MD CHEMISTRY ORDERABLE S Performing Organization Address [facility] Co de Phone Number [facility] [place] [address] * Magnesium (05/16/2023 5:22 PM EDT) Magnesium 0.96 0.69 - 1.07 mmol/L [facility] Blood 05/16/2023 5:22 PM EDT 05/16/2023 5:27 PM EDT Narrative Resulting Agency Comment Spec In Lab Alirio Hudson MD CHEMISTRY ORDERABLE S Performing Organization Address [facility]/ZIP Co de Phone Number [facility] [place] [address] * (ABNORMAL) Basic Metabolic Panel (non-fasting) (05/16/2023 5:22 PM EDT) Glucose Lvl 106 65 - 199 mg/dL [facility] Comment:Diabetes: >=200 mg/d L plus symptoms BUN 103(H) 8 - 18 mg/dL [facility] Creatinine 3.91(H) 0.70 - 1.20 mg/dL [facility] Comment:result rechecked-imm Sodium 132(L) 135 - 145 mmol/L [facility] Potassium 3.6 3.5 - 5.0 mmol/L [facility] Comment: Please note: ??Patients with WBC >100,000 may have falsely elevated Potassium levels. ??For accurate Potassium quantification in these patients send serum separator tube (gold top) for subsequent determinations. ??Contact the Clinical Chemistry Laboratory if there are any questions. Chloride 92(L) 98 - 107 mmol/L [facility] CO2 22 22 - 31 mmol/L [facility] Anion Gap 18(H) 5 - 15 mmol/L [facility] Calcium 9.7 8.5 - 10.5 mg/dL [facility] Estimated GFR 12(L) >=60 mL/min/1. 73 m?? [facility] [...] Lab Alirio Hudson MD CHEMISTRY ORDERABLE S [facility] [place] [address] * (ABNORMAL) Potassium (05/16/2023 11:43 AM EDT) Potassium 3.3(L) 3.5 - 5.0 mmol/L [facility] [...] MD CHEMISTRY ORDERABLE S Performing Organization Address City/[facility] Co de Phone Number [facility] [place] [address] * (ABNORMAL) Ferritin (05/16/2023 4:41 AM EDT) [facility] Ferritin 1,813(H) 30 - 400 ng/mL [facility] Comment: Pediatric reference ranges not verified at [facility], interpret with caution. Reference ranges for females greater than 50 years of age approach values for men, i.e., 30-400 ng/mL. Blood 05/16/2023 4:41 AM EDT 05/16/2023 4:54 AM EDT Narrative Resulting Agency Comment Spec In Lab Kristopher Ayoub MD CHEMISTRY ORDERABLES Performing Organization Address [facility] Co de Phone Number [facility] [place] [address] * (ABNORMAL) PTH (05/16/2023 4:41 AM EDT) [facility] PTH 120(H) 15 - 65 pg/mL [facility] Blood 05/16/2023 4:41 AM EDT 05/16/2023 4:54 AM EDT Narrative Resulting Agency Comment Spec In Lab Kristopher Ayoub MD CHEMISTRY ORDERABLES Performing Organization Address [facility] Co de Phone Number [facility] [place] [address] * Vitamin D, 25-Hydroxy (05/16/2023 4:41 AM EDT) [facility] 25-OH Vit D Total 33 21 - 100 ng/mL [facility] 25-OH Vit D Interp Sufficient [facility] Blood 05/16/2023 4:41 AM EDT 05/16/2023 4:54 AM EDT Narrative Resulting Agency Comment Spec In Lab Kristopher Ayoub MD CHEMISTRY ORDERABLES [facility] [place] [address] * (ABNORMAL) Blood Gas Venous ([facility]) (05/16/2023 4:22 AM EDT) pH Mike 7.41 7.32 - 7.42 [facility] pCO2 Mike 32(L) 41 - [address] [facility] pO2 Mike 73(H) 25 - [address] [facility] HCO3 Mike 19.6 mmol/L [facility] BE Mike -5.1 mmol/L [facility] Hgb Blood Gas 9.7(L) 11.7 - 15.5 g/dL [facility] O2HB Mike 92.8 % [facility] COHB Mike 0.1 % [facility] Comment: Nonsmokers: 0.5-1.5% COHB Smokers: Variable, but usually less than 10% Toxic: 20-30% COHB Lethal: Greater than 60% COHB METHB Mike 0.3 <=1.5 % [facility] Na Whole Blood 130(L) 135 - 145 mmol/L [facility] K Whole Blood 3.7 3.5 - 5.0 mmol/L [facility] Comment: Please note: Patients with WBC >100,000 may have falsely elevated Potassium levels. Contact the Clinical Chemistry Laboratory if there are any questions. ICa Whole Blood 1.15 1.15 - 1.33 mmol/L [facility] Comment: Note: ??Total bilirubin higher than 20 mg/dL may lead to falsely low ionized calcium. CL Whole Blood 95(L) 98 - 107 mmol/L [facility] Gluc Whole Bld 82 65 - 199 mg/dL [facility] Comment:Diabetes: >=200 mg/d L plus symptoms Lactate WB 1.1 0.5 - 2.2 mmol/L [facility] BGas Source Venous [facility] Blood Venous Draw / Unknown 05/16/2023 4:22 AM EDT 05/16/2023 4:31 AM EDT Narrative Resulting Agency Comment Spec In Lab Bonita TOBAR CHEMISTRY ORDERABLES [facility] [place] [address] * (ABNORMAL) Differential, Automated (05/16/2023 4:20 AM EDT) Neutrophils % 84.1 % [facility] Neutr Abs (ANC) 6.22(H) 1.70 - 6.10 x10(3)/mc L [facility] Lymphocytes % 5.8 % [facility] Lymphocytes Abs 0.4(L) 0.9 - 3.2 x10(3)/[facility] LABORATORY Monocytes % 8.8 % [facility] Monocyte Abs 0.6 0.3 - 0.9 x10(3)/ L [facility] Eosinophils % 0.4 % [facility] Eosinophils Abs 0.0 0.0 - 0.4 x10(3)/ L [facility] Basophils % 0.0 % [facility] Basophils Abs 0.0 0.0 - 0.1 x10(3)/ L [facility] Immature Gran % 0.90 % [facility] Comment: Immature granulocytes(IG's)percentage and absolute count will include metamyelocytes, myelocytes, and promyelocytes. Blood smears from CBCs yielding IG's will be scanned manually for concordance. If this scan disagrees with the automated IG or if promyelocytes are noted, a manual differential will be performed. Amanda Gran Abs 0.07(H) 0.00 - 0.04 x10(3)/ L [facility] Blood 05/16/2023 4:20 AM EDT 05/16/2023 4:29 AM EDT Narrative Resulting Agency Comment Spec In Lab James Agustin MD HEMATOLOGY ORDER JODIE [facility] [place] [address] * (ABNORMAL) Hemogram (05/16/2023 4:20 AM EDT) WBC 7.4 4.0 - 9.5 x10(3)/[facility] LABORATORY RBC 2.40(L) 4.00 - 5.21 x10(6)/[facility]ORATORY Hemoglobin 7.8(L) 11.7 - 15.5 g/dL [facility] Hematocrit 22.5(L) 35.7 - 45.8 % [facility] MCV 93.8 82.6 - 94.[address] [facility] MCH 32.5(H) 27.1 - 32.[address] [facility] MCHC 34.7 31.7 - 35.0 g/dL [facility] Platelets 120(L) 145 - 357 x10(3)/[facility] LABORATORY RDWSD 42.9 37.0 - 46.0 [facility]ORATORY RDWCV 12.9 11.5 - 14.1 % [facility] MPV 11.3 7.6 - 12.9 [facility] LABORATORY nRBC % Auto 0.7 % [facility] nRBC Abs Auto 0.050(H) 0.000 - 0.000 x10(3)/[facility]ORATORY Blood 05/16/2023 4:20 AM EDT 05/16/2023 4:29 AM EDT Narrative Resulting Agency Comment Spec In Lab James Agustin MD HEMATOLOGY ORDER JODIE [facility] [place] [address] * (ABNORMAL) Basic Metabolic Panel (non-fasting) (05/16/2023 4:20 AM EDT) Glucose Lvl 89 65 - 199 mg/dL [facility] Comment:Diabetes: >=200 mg/d L plus symptoms BUN 108(H) 8 - 18 mg/dL [facility] Creatinine 4.74(H) 0.70 - 1.20 mg/dL [facility] Comment:result rechecked-OLIVA Sodium 132(L) 135 - 145 mmol/L [facility] Potassium 3.9 3.5 - 5.0 mmol/L [facility] Comment: Please note: ??Patients with WBC >100,000 may have falsely elevated Potassium levels. ??For accurate Potassium quantification in these patients send serum separator tube (gold top) for subsequent determinations. ??Contact the Clinical Chemistry Laboratory if there are any questions. Chloride 95(L) 98 - 107 mmol/L [facility] CO2 18(L) 22 - 31 mmol/L [facility] Anion Gap 19(H) 5 - 15 mmol/L [facility] Calcium 9.2 8.5 - 10.5 mg/dL [facility] Estimated GFR 10(L) >=60 mL/min/1. 73 m?? [facility] MD CHEMISTRY ORDERABLE S Performing Organization Address City/[facility]/ZIP Co de Phone Number [facility] [place] [address] * (ABNORMAL) Iron and TIBC (05/16/2023 4:20 AM EDT) Iron 31 30 - 150 mcg/dL [facility] TIBC 259 250 - 450 mcg/dL [facility] Iron Saturation 12(L) 20 - 50 % [facility] Blood 05/16/2023 4:20 AM EDT 05/16/2023 4:29 AM EDT Narrative Resulting Agency Comment Spec In Lab Kristopher Ayoub MD CHEMISTRY ORDERABLES Performing Organization Address [facility] Co de Phone Number [facility] [place] [address] * (ABNORMAL) Basic Metabolic Panel (non-fasting) (05/15/2023 12:50 AM EDT) Glucose Lvl 101 65 - 199 mg/dL [facility] Comment:Diabetes: >=200 mg/d L plus symptoms BUN 109(H) 8 - 18 mg/dL [facility] Creatinine 5.62(H) 0.70 - 1.20 mg/dL [facility] Comment:result rechecked-KS Sodium 131(L) 135 - 145 mmol/L [facility] Comment:result rechecked-KS Potassium 3.7 3.5 - 5.0 mmol/L [facility] Comment: result rechecked-KS Please note: ??Patients with WBC >100,000 may have falsely elevated Potassium levels. ??For accurate Potassium quantification in these patients send serum separator tube (gold top) for subsequent determinations. ??Contact the Clinical Chemistry Laboratory if there are any questions. Chloride 92(L) 98 - 107 mmol/L [facility] Comment:result rechecked-KS CO2 18(L) 22 - 31 mmol/L [facility] Comment:result rechecked-KS Anion Gap 21(H) 5 - 15 mmol/L [facility] Calcium 8.9 8.5 - 10.5 mg/dL [facility] Estimated GFR 8(L) >=60 mL/min/1. 73 m?? [facility] [...] Lab Alirio Hudson MD CHEMISTRY ORDERABLE S [facility] [place] [address] * (ABNORMAL) Hemogram (05/15/2023 12:50 AM EDT) WBC 9.1 4.0 - 9.5 x10(3)/[facility] LABORATORY RBC 2.19(L) 4.00 - 5.21 x10(6)/[facility] LABORATORY Hemoglobin 7.2(L) 11.7 - 15.5 g/dL [facility] Hematocrit 20.6(L) 35.7 - 45.8 % [facility] MCV 94.1 82.6 - 94.[address] [facility] MCH 32.9(H) 27.1 - 32.[address] [facility] MCHC 35.0 31.7 - 35.0 g/dL [facility] Platelets 109(L) 145 - 357 x10(3)/[facility] RDWSD 43.6 37.0 - 46.[address] [facility] RDWCV 12.9 11.5 - 14.1 % [facility] MPV 10.4 7.6 - 12.[address] [facility] nRBC % Auto 2.1 % [facility] nRBC Abs Auto 0.190(H) 0.000 - 0.000 x10(3)/[facility] Blood 05/15/2023 12:5 0 AM EDT 05/15/2023 12:52 AM EDT Narrative Resulting Agency Comment Spec In Lab [facility] Hudson MD HEMATOLOGY ORDERABL ES [facility] [place] [address] * (ABNORMAL) BLOOD GAS 2 VENOUS (05/15/2023 12:49 AM EDT) pH Mike 7.33 7.32 - 7.42 [facility] pCO2 Mike 37(L) 41 - [address] [facility] pO2 Mike 34 25 - [address] [facility] HCO3 Mike 19.1 mmol/L [facility] BE Mike -6.8 mmol/L [facility] Hgb Blood Gas 10.8(L) 11.7 - 15.5 g/dL [facility] O2HB Mike 58.1 % [facility] COHB Mike 0.3 % [facility] Comment: Nonsmokers: 0.5-1.5% COHB Smokers: Variable, but usually less than 10% Toxic: 20-30% COHB Lethal: Greater than 60% COHB METHB Mike 0.6 <=1.5 % [facility] Na Whole Blood 136 135 - 145 mmol/L [facility] K Whole Blood 3.7 3.5 - 5.0 mmol/L [facility] Comment: Please note: Patients with WBC >100,000 may have falsely elevated Potassium levels. Contact the Clinical Chemistry Laboratory if there are any questions. ICa Whole Blood 1.12(L) 1.15 - 1.33 mmol/L [facility] Comment: Note: ??Total bilirubin higher than 20 mg/dL may lead to falsely low ionized calcium. CL Whole Blood 95(L) 98 - 107 mmol/L [facility] Gluc Whole Bld 101 65 - 199 mg/dL [facility] Comment:Diabetes: >=200 mg/d L plus symptoms Lactate WB 1.3 0.5 - 2.2 mmol/L [facility] Flow Mike 1.0 LPM [facility] BGas Source Venous [facility] Blood 05/15/2023 12:4 9 AM EDT 05/15/2023 12:49 AM EDT Alirio Hudson MD CHEMISTRY ORDERABLE S [facility] [place] [address] * US Retroperitoneal Complete (05/14/2023 3:53 PM [...] who have questions, please contact the health child day care provider that requested your imaging first. ? Hayden Robledo, Staff Physician Electronically Signed Final Report ?? 05/14/2023 04:39 pm Narrative 05/14/2023 4:39 PM EDT Renal ? (Signed Final 05/14/2023 04:39 pm) PATIENT INFO: ID #: ? [id number] ?: ??55 (67 yrs)(F) Name: ? PURNIMA THACKER ?Visit Date: 05/14/2023 03:44 pm PERFORMED BY: Attending: ?Meena CULP, Hayden Stafford Resident: ? Nell CULP, Anand August Performed By: ? Consuelo Tello RDMS Referred By: ?ALIRIO Powell BECCA Location: ? [place] SERVICE(S) PROVIDED: URETRO - Retroperitoneal Complete - [id number] ? [id number] INDICATIONS: [facility]ANS COMPARISON: CT: Abdomen/Pelvis 05/11/23 RIGHT [...] 05/14/2023 04:39 pm) PATIENT INFO: ID #: [id number] : 55 (67 yrs)(F) Name: PURNIMA THACKER Visit Date: 05/14/2023 03:44 pm PERFORMED BY: Attending: Hayden Robledo MD Resident: Anand Camejo MD Performed By: Consuelo Tello RDMS Referred By: ALIRIO HUDSON Location: [place] SERVICE(S) PROVIDED: URETRO - Retroperitoneal Complete - [id number] INDICATIONS: EVANS COMPARISON: CT: Abdomen/Pelvis 05/11/23 RIGHT [...] who have questions, please contact the health child day care provider that requested your imaging first. Hayden Robledo, Staff Physician Electronically Signed Final Report 05/14/2023 04:39 pm Alirio Hudson MD IMG US GEN ORDERABL ES * CK (05/14/2023 3:17 PM EDT) CK, Total 123 0 - 160 unit/L [facility] Blood 05/14/2023 3:17 PM EDT 05/14/2023 3:31 PM EDT Narrative Resulting Agency Comment Spec In Lab Alirio Hudson MD CHEMISTRY ORDERABLE S Performing Organization Address [facility] Co de Phone Number [facility] [place] [address] * (ABNORMAL) Uric acid (05/14/2023 3:17 PM EDT) Uric Acid 14.9(H) 2.5 - 6.5 mg/dL [facility] Blood 05/14/2023 3:17 PM EDT 05/14/2023 3:31 PM EDT Narrative Resulting Agency Comment Spec In Lab Alirio Hudson MD CHEMISTRY ORDERABLE S Performing Organization Address City/[facility] Co de Phone Number [facility] [place] [address] * (ABNORMAL) Osmolality (05/14/2023 3:17 PM EDT) Osmolality 311(H) 275 - 295 mOsm/kg [facility] Blood 05/14/2023 3:17 PM EDT 05/14/2023 3:31 PM EDT Narrative Resulting Agency Comment Spec In Lab Alirio Hudson MD CHEMISTRY ORDERABLE S [facility] [place] [address] * (ABNORMAL) Differential, Automated (05/14/2023 1:10 AM EDT) Neutrophils % 87.2 % [facility] Neutr Abs (ANC) 9.74(H) 1.70 - 6.10 x10(3)/ L [facility] Lymphocytes % 3.9 % [facility] Lymphocytes Abs 0.4(L) 0.9 - 3.2 x10(3)/ L [facility] Monocytes % 7.9 % [facility] Monocyte Abs 0.9 0.3 - 0.9 x10(3)/ L [facility] Eosinophils % 0.0 % [facility] Eosinophils Abs 0.0 0.0 - 0.4 x10(3)/[facility] LABORATORY Basophils % 0.1 % [facility] Basophils Abs 0.0 0.0 - 0.1 x10(3)/[facility] LABORATORY Immature Gran % 0.90 % [facility] Comment: Immature granulocytes(IG's)percentage and absolute count will include metamyelocytes, myelocytes, and promyelocytes. Blood smears from CBCs yielding IG's will be scanned manually for concordance. If this scan disagrees with the automated IG or if promyelocytes are noted, a manual differential will be performed. Amanda Gran Abs 0.10(H) 0.00 - 0.04 x10(3)/ L [facility] Blood 05/14/2023 1:10 AM EDT 05/14/2023 1:24 AM EDT Narrative Resulting Agency Comment Spec In Lab Bonita TOBAR HEMATOLOGY ORDERABLE S Performing Organization Address [facility]/ZIP Co de Phone Number [facility] [place] [address] * (ABNORMAL) Hemogram (05/14/2023 1:10 AM EDT) WBC 11.2(H) 4.0 - 9.5 x10(3)/[facility] LABORATORY RBC 2.19(L) 4.00 - 5.21 x10(6)/[facility]ATORY Hemoglobin 7.2(L) 11.7 - 15.5 g/dL [facility] Hematocrit 20.3(L) 35.7 - 45.8 % [facility] MCV 92.7 82.6 - 94.[address] [facility] MCH 32.9(H) 27.1 - 32.[address] [facility] MCHC 35.5(H) 31.7 - 35.0 g/dL [facility] Platelets 112(L) 145 - 357 x10(3)/[facility] LABORATORY RDWSD 41.4 37.0 - 46.0 [facility] LABORATORY RDWCV 12.5 11.5 - 14.1 % [facility] MPV 10.4 7.6 - 12.9 [facility]ATORY nRBC % Auto 1.5 % [facility] nRBC Abs Auto 0.170(H) 0.000 - 0.000 x10(3)/[facility] Blood 05/14/2023 1:10 AM EDT 05/14/2023 1:24 AM EDT Narrative Resulting Agency Comment Spec In Lab Bonita TOBAR HEMATOLOGY ORDERABLE S [facility] [place] [address] * (ABNORMAL) Comprehensive metabolic panel (non-fasting) (05/14/2023 1:10 AM EDT) Pathologist [facility] Glucose Lvl 120 65 - 199 mg/dL [facility] Comment:Diabetes: >=200 mg/d L plus symptoms BUN 98(H) 8 - 18 mg/dL [facility] Creatinine 4.80(H) 0.70 - 1.20 mg/dL [facility] Comment:result rechecked-ssc Sodium 132(L) 135 - 145 mmol/L [facility] Potassium 4.1 3.5 - 5.0 mmol/L [facility] Comment: Please note: ??Patients with WBC >100,000 may have falsely elevated Potassium levels. ??For accurate Potassium quantification in these patients send serum separator tube (gold top) for subsequent determinations. ??Contact the Clinical Chemistry Laboratory if there are any questions. Chloride 94(L) 98 - 107 mmol/L [facility] CO2 18(L) 22 - 31 mmol/L [facility] Anion Gap 20(H) 5 - 15 mmol/L [facility] Calcium 8.5 8.5 - 10.5 mg/dL [facility] Total Protein 5.8(L) 6.1 - 8.0 g/dL [facility] Albumin 3.6 3.2 - 5.2 g/dL [facility] AST 319(H) 0 - 30 unit/L [facility] ALT 437(H) 0 - 30 unit/L [facility] Alk Phos 86 35 - 105 unit/L [facility] Total Bilirubin 0.4 0.2 - 1.3 mg/dL [facility] Estimated GFR 9(L) >=60 mL/min/1. 73 m?? [facility] MD CHEMISTRY ORDERABLE S Performing Organization Address [facility]/ZIP Co de Phone Number [facility] [place] [address] * APTT (05/13/2023 10:15 AM EDT) PTT 27 25 - [address] [facility] Comment: The PTT is NOT appropriate for heparin monitoring. Use the Anti-Xa level for heparin monitoring (HEP UFH) or LMWH monitoring (HEP LMW). A PTT less than 37 seconds generally indicates adequate hemostasis. Blood 05/13/2023 10:1 5 AM EDT 05/13/2023 10:46 AM EDT Narrative Resulting Agency Comment Spec In Lab Alirio Hudson MD HEMATOLOGY ORDERABL ES Performing Organization Address [facility] Co de Phone Number [facility] [place] [address] * (ABNORMAL) Prothrombin Time (05/13/2023 10:15 AM EDT) PT 14.6(H) 9.4 - 12.[address] [facility] INR 1.3 [facility] Comment: An INR <2.0 indicates [...] MD HEMATOLOGY ORDERABL ES Performing Organization Address [facility]/ZIP Co de Phone Number [facility] [place] [address] * EKG 12 Lead (05/13/2023 9:22 AM EDT) Ventricular rate 92 BPM MUSE SYSTEM Atrial Rate 92 BPM MUSE SYSTEM P-R Interval 140 ms MUSE SYSTEM QRS Duration 104 ms MUSE SYSTEM Q-T Interval 384 ms MUSE SYSTEM QTC Calculated (Bezet) 474 ms MUSE SYSTEM Calculated P [place] 33 degrees MUSE SYSTEM Calculated R [place] 41 degrees MUSE SYSTEM Calculated T [place] -35 degrees MUSE SYSTEM INTERPRETATION Sinus rhythm with frequent Premature ventricular complexes Septal infarct , age undetermined ST & T wave abnormality, consider lateral ischemia Abnormal ECG When compared with ECG of 12-MAY-2023 10:10, Premature ventricular complexes are now Present I personally reviewed the tracing and edited the fellows interpretation Confirmed by fellow MD Anitha, Carissa ([id number]) on 05/13/2023 3:25:30 PM Confirmed by Maxx Best ([id number]) on 05/13/2023 8:30:56 PM MUSE SYSTEM 05/13/2023 9:22 AM EDT 05/13/2023 8:30 PM EDT Alirio Hudson MD ECG ORDERABLES MUSE SYSTEM * (ABNORMAL) Differential, Automated (05/13/2023 1:15 AM EDT) Neutrophils % 88.1 % [facility] Neutr Abs (ANC) 7.62(H) 1.70 - 6.10 x10(3)/mc L [facility] Lymphocytes % 3.1 % [facility] Lymphocytes Abs 0.3(L) 0.9 - 3.2 x10(3)/mc L [facility] Monocytes % 7.9 % [facility] Monocyte Abs 0.7 0.3 - 0.9 x10(3)/mc L [facility] Eosinophils % 0.0 % [facility] Eosinophils Abs 0.0 0.0 - 0.4 x10(3)/mc L [facility] Basophils % 0.1 % [facility] Basophils Abs 0.0 0.0 - 0.1 x10(3)/mc L [facility] Immature Gran % 0.80 % [facility] Comment: Immature granulocytes(IG's)percentage and absolute count will include metamyelocytes, myelocytes, and promyelocytes. Blood smears from CBCs yielding IG's will be scanned manually for concordance. If this scan disagrees with the automated IG or if promyelocytes are noted, a manual differential will be performed. Amanda Gran Abs 0.07(H) 0.00 - 0.04 x10(3)/ L [facility] Blood 05/13/2023 1:15 AM EDT 05/13/2023 1:29 AM EDT Narrative Resulting Agency Comment Spec In Lab Lorri TOBAR HEMATOLOGY ORDERABLE S Performing Organization Address City/State/[facility] Co de Phone Number [facility] [place] [address] * (ABNORMAL) Hemogram (05/13/2023 1:15 AM EDT) WBC 8.6 4.0 - 9.5 x10(3)/[facility] LABORATORY RBC 2.37(L) 4.00 - 5.21 x10(6)/[facility] Hemoglobin 7.8(L) 11.7 - 15.5 g/dL [facility] Hematocrit 22.2(L) 35.7 - 45.8 % [facility] MCV 93.7 82.6 - 94.[address] [facility] MCH 32.9(H) 27.1 - 32.[address] [facility] MCHC 35.1(H) 31.7 - 35.0 g/dL [facility] Platelets 130(L) 145 - 357 x10(3)/[facility] RDWSD 41.7 37.0 - 46.[address] [facility] RDWCV 12.5 11.5 - 14.1 % [facility] MPV 10.2 7.6 - 12.[address] [facility] nRBC % Auto 0.5 % [facility] nRBC Abs Auto 0.040(H) 0.000 - 0.000 x10(3)/mcL [facility] Blood 05/13/2023 1:15 AM EDT 05/13/2023 1:29 AM EDT Narrative Resulting Agency Comment Spec In Lab Lorri TOBAR HEMATOLOGY ORDERABLE S Performing Organization Address City/[facility]/ZIP Co de Phone Number [facility] [place] [address] * (ABNORMAL) Hepatic Function Panel (05/13/2023 1:15 AM EDT) Total Protein 5.5(L) 6.1 - 8.0 g/dL [facility] Albumin 3.0(L) 3.2 - 5.2 g/dL [facility] AST 792(H) 0 - 30 unit/L [facility] ALT 903(H) 0 - 30 unit/L [facility] Alk Phos 85 35 - 105 unit/L [facility] Total Bilirubin 0.5 0.2 - 1.3 mg/dL [facility] Bili, Direct 0.3 0.0 - 0.3 mg/dL [facility] Blood 05/13/2023 1:15 AM EDT 05/13/2023 1:29 AM EDT Narrative Resulting Agency Comment Spec In Lab Alirio Hudson MD CHEMISTRY ORDERABLE S [facility] [place] [address] * (ABNORMAL) Basic Metabolic Panel (non-fasting) (05/13/2023 1:15 AM EDT) Glucose Lvl 107 65 - 199 mg/dL [facility] Comment:Diabetes: >=200 mg/d L plus symptoms BUN 82(H) 8 - 18 mg/dL [facility] Creatinine 3.15(H) 0.70 - 1.20 mg/dL [facility] Comment:result rechecked-JSJ Sodium 132(L) 135 - 145 mmol/L [facility] Potassium 3.8 3.5 - 5.0 mmol/L [facility] Comment: Please note: ??Patients with WBC >100,000 may have falsely elevated Potassium levels. ??For accurate Potassium quantification in these patients send serum separator tube (gold top) for subsequent determinations. ??Contact the Clinical Chemistry Laboratory if there are any questions. Chloride 95(L) 98 - 107 mmol/L [facility] CO2 20(L) 22 - 31 mmol/L [facility] Anion Gap 17(H) 5 - 15 mmol/L [facility] Calcium 8.3(L) 8.5 - 10.5 mg/dL [facility] Estimated GFR 16(L) >=60 mL/min/1. 73 m?? [facility] Lab Alirio Hudson MD CHEMISTRY ORDERABLE S [facility] [place] [address] * (ABNORMAL) BLOOD GAS 2 ARTERIAL (05/12/2023 3:57 PM EDT) pH Art 7.39 7.35 - 7.45 [facility] pCO2 Art 33(L) 35 - [address] [facility] pO2 Art 101 85 - [address] [facility] HCO3 Art 19.5(L) 20.0 - 26.0 mmol/L [facility] BE Art -5.5(L) -3.0 - 3.0 mmol/L [facility] Hgb Blood Gas 9.8(L) 11.7 - 15.5 g/dL [facility] O2HB Art 95.2 94.0 - 97.0 % [facility] COHB Art 0.2 % [facility] Comment: Nonsmokers: 0.5-1.5% COHB Smokers: Variable, but usually less than 10% Toxic: 20-30% COHB Lethal: Greater than 60% COHB METHB Art 0.8 <=1.5 % [facility] Na Whole Blood 129(L) 135 - 145 mmol/L [facility] K Whole Blood 3.8 3.5 - 5.0 mmol/L [facility] Comment: Please note: Patients with WBC >100,000 may have falsely elevated Potassium levels. Contact the Clinical Chemistry Laboratory if there are any questions. ICa Whole Blood 1.05(L) 1.15 - 1.33 mmol/L [facility] Comment: Note: ??Total bilirubin higher than 20 mg/dL may lead to falsely low ionized calcium. CL Whole Blood 96(L) 98 - 107 mmol/L [facility] Gluc Whole Bld 178 65 - 199 mg/dL [facility] Comment:Diabetes: >=200 mg/d L plus symptoms. Lactate WB 1.5 0.5 - 2.2 mmol/L [facility] FIO2 Art 40 % [facility] PF Ratio Art 252 [facility] Blood 05/12/2023 3:57 PM EDT 05/12/2023 3:57 PM EDT Alirio Hudson MD CHEMISTRY ORDERABLE S [facility] [place] [address] * (ABNORMAL) Coox2 (05/12/2023 2:25 PM EDT) pO2 Coox 37 mmHg [facility] Hgb Blood Gas 9.5(L) 11.7 - 15.5 g/dL [facility] O2HB Coox 59.9 % [facility] COHB Coox 0.3 % [facility] Comment: Nonsmokers: 0.5-1.5% COHB Smokers: Variable, but usually less than 10% Toxic: 20-30% COHB Lethal: Greater than 60% COHB METHB Coox 0.7 <=1.5 % [facility] Source Coox Mixed Venous [facility] Blood 05/12/2023 2:25 PM EDT 05/12/2023 2:25 PM EDT Alirio Hudson MD CHEMISTRY ORDERABLE S [facility] [place] [address] * (ABNORMAL) BLOOD GAS 2 ARTERIAL (05/12/2023 2:23 PM EDT) pH Art 7.37 7.35 - 7.45 [facility] pCO2 Art 36 35 - [address] [facility] pO2 Art 102 85 - [address] [facility] HCO3 Art 20.4 20.0 - 26.0 mmol/L [facility] BE Art -4.8(L) -3.0 - 3.0 mmol/L [facility] Hgb Blood Gas 12.7 11.7 - 15.5 g/dL [facility] O2HB Art 95.4 94.0 - 97.0 % [facility] COHB Art 0.3 % [facility] Comment: Nonsmokers: 0.5-1.5% COHB Smokers: Variable, but usually less than 10% Toxic: 20-30% COHB Lethal: Greater than 60% COHB METHB Art 0.7 <=1.5 % [facility] Na Whole Blood 129(L) 135 - 145 mmol/L [facility] K Whole Blood 3.7 3.5 - 5.0 mmol/L [facility] Comment: Please note: Patients with WBC >100,000 may have falsely elevated Potassium levels. Contact the Clinical Chemistry Laboratory if there are any questions. ICa Whole Blood 1.05(L) 1.15 - 1.33 mmol/L [facility] Comment: Note: ??Total bilirubin higher than 20 mg/dL may lead to falsely low ionized calcium. CL Whole Blood 95(L) 98 - 107 mmol/L [facility] Gluc Whole Bld 168 65 - 199 mg/dL [facility] Comment:Diabetes: >=200 mg/d L plus symptoms. Lactate WB 1.8 0.5 - 2.2 mmol/L [facility] FIO2 Art 40 % [facility] PF Ratio Art 255 [facility] Blood 05/12/2023 2:23 PM EDT 05/12/2023 2:23 PM EDT Alirio Hudson MD CHEMISTRY ORDERABLE S [facility] [place] [address] * (ABNORMAL) Troponin (05/12/2023 2:05 PM EDT) Troponin-T HS 1,022(H) <=14 ng/L [facility] Comment: This patient's troponin T [...] can be found in the [facility] Laboratory Test Catalog Troponin - [facility] Laboratory Test Catalog Reference: Fourth [place] Definition of Myocardial Infarction. Journal of the [employer] 2018;72:3023-0565 Blood 05/12/2023 2:05 PM EDT 05/12/2023 2:14 PM EDT Narrative Resulting Agency Comment Spec In Lab Alirio Hudson MD CHEMISTRY ORDERABLE S Performing Organization Address [facility]/ZIP Co de Phone Number [facility] [place] [address] * (ABNORMAL) Hemoglobin (05/12/2023 2:05 PM EDT) Hemoglobin 8.5(L) 11.7 - 15.5 g/dL [facility] Blood 05/12/2023 2:05 PM EDT 05/12/2023 2:14 PM EDT Narrative Resulting Agency Comment Spec In Lab Alirio Hudson MD HEMATOLOGY ORDERABL ES Performing Organization Address City/[facility]/ZIP Co de Phone Number [facility] [place] [address] * Potassium (05/12/2023 2:05 PM EDT) Potassium 3.9 3.5 - 5.0 mmol/[facility] Co de Phone Number [facility] [place] [address] * (ABNORMAL) BLOOD GAS 2 ARTERIAL (05/12/2023 11:05 AM EDT) pH Art 7.34(L) 7.35 - 7.45 [facility] pCO2 Art 42 35 - [address] [facility] pO2 Art 73(L) 85 - [address] [facility] HCO3 Art 22.1 20.0 - 26.0 mmol/L [facility] BE Art -3.6(L) -3.0 - 3.0 mmol/L [facility] Hgb Blood Gas 9.3(L) 11.7 - 15.5 g/dL [facility] O2HB Art 89.3(L) 94.0 - 97.0 % [facility] COHB Art 0.2 % [facility] Comment: Nonsmokers: 0.5-1.5% COHB Smokers: Variable, but usually less than 10% Toxic: 20-30% COHB Lethal: Greater than 60% COHB METHB Art 0.9 <=1.5 % [facility] Na Whole Blood 131(L) 135 - 145 mmol/L [facility] K Whole Blood 3.8 3.5 - 5.0 mmol/L [facility] Comment: Please note: Patients with WBC >100,000 may have falsely elevated Potassium levels. Contact the Clinical Chemistry Laboratory if there are any questions. ICa Whole Blood 1.04(L) 1.15 - 1.33 mmol/L [facility] Comment: Note: ??Total bilirubin higher than 20 mg/dL may lead to falsely low ionized calcium. CL Whole Blood 96(L) 98 - 107 mmol/L [facility] Gluc Whole Bld 152 65 - 199 mg/dL [facility] Comment:Diabetes: >=200 mg/d L plus symptoms. Lactate WB 2.8(H) 0.5 - 2.2 mmol/L [facility] FIO2 Art 40 % [facility] PF Ratio Art 182 [facility] Blood 05/12/2023 11:0 5 AM EDT 05/12/2023 11:05 AM EDT Alirio Hudson MD CHEMISTRY ORDERABLE S Performing Organization Address City/State/[facility] Co de Phone Number [facility] [place] [address] * (ABNORMAL) BLOOD GAS 2 ARTERIAL (05/12/2023 10:14 AM EDT) pH Art 7.18(Criti gabrielle) 7.35 - 7.45 [facility] Comment:Noted by optical instrument assembler. pCO2 Art 45 35 - [address] [facility] pO2 Art 186(H) 85 - [address] [facility] HCO3 Art 16.2(L) 20.0 - 26.0 mmol/L [facility] BE Art -12.2(L) -3.0 - 3.0 mmol/L [facility] Hgb Blood Gas 10.0(L) 11.7 - 15.5 g/dL [facility] O2HB Art 97.0 94.0 - 97.0 % [facility] COHB Art 0.2 % [facility] Comment: Nonsmokers: 0.5-1.5% COHB Smokers: Variable, but usually less than 10% Toxic: 20-30% COHB Lethal: Greater than 60% COHB METHB Art 0.9 <=1.5 % [facility] Na Whole Blood 129(L) 135 - 145 mmol/L [facility] K Whole Blood 3.6 3.5 - 5.0 mmol/L [facility] Comment: Please note: Patients with WBC >100,000 may have falsely elevated Potassium levels. Contact the Clinical Chemistry Laboratory if there are any questions. ICa Whole Blood 1.10(L) 1.15 - 1.33 mmol/L [facility] Comment: Note: ??Total bilirubin higher than 20 mg/dL may lead to falsely low ionized calcium. CL Whole Blood 97(L) 98 - 107 mmol/L [facility] Gluc Whole Bld 161 65 - 199 mg/dL [facility] Comment:Diabetes: >=200 mg/d L plus symptoms. Lactate WB 3.3(H) 0.5 - 2.2 mmol/L [facility] FIO2 Art 100 % [facility] PF Ratio Art 186 [facility] Blood 05/12/2023 10:1 4 AM EDT 05/12/2023 10:14 AM EDT Alirio Hudson MD CHEMISTRY ORDERABLE S [facility] [place] [address] * EKG 12 Lead (05/12/2023 10:10 AM EDT) Ventricular rate 116 BPM MUSE SYSTEM Atrial Rate 116 BPM MUSE SYSTEM P-R Interval 158 ms MUSE SYSTEM QRS Duration 114 ms MUSE SYSTEM Q-T Interval 348 ms MUSE SYSTEM QTC Calculated (Bezet) 483 ms MUSE SYSTEM Calculated P [place] 37 degrees MUSE SYSTEM Calculated R [place] 31 degrees MUSE SYSTEM Calculated T [place] -138 degrees MUSE SYSTEM INTERPRETATION Sinus tachycardia [...] interpretation Confirmed by fellow MD Anuja, Jim ([id number]) on 05/12/2023 1:04:20 PM Confirmed by MD Mono, Eleni ([id number]) on 05/12/2023 9:28:34 PM MUSE SYSTEM 05/12/2023 [...] please contact the health child day care provider that requested your imaging first. ? Narrative 05/12/2023 10:08 AM EDT EXAMINATION: XR CHEST ONE VIEW CLINICAL HISTORY: Post TAVR TECHNIQUE: 1 view of the chest COMPARISON: Chest radiograph from earlier today FINDINGS: Interval placement of endotracheal tube with tip terminating 2 cm above the shira. Interval placement of enteric tube projecting along the expected course of the esophagus and outside the uxkvg-dd-crsp. Interval retraction of right IJ approach pulmonary [...] expected course ofthe esophagus and outside the lihxw-ef-nlyi. Interval retraction of right IJ approach pulmonary [...] questions please contactthe health child day care provider that requested your imaging first. Alirio Hudson [...] 1955 ? Height: 154 cm ? Account: [id number] Age: 67 yrs ? Weight: 75 kg Gender: Female ?BSA: 1.7 m2 Ordering Physician: RADHA HOLLINS Referring Physician: RADHA HOLLINS Performed By: Dilma Bee RDCS Reason For Study: Guidance for TAVR procedure Exam Location: [facility]. Interpretation Summary PRE TAVR: There is severe [...] mL/m2. POST TAVR: Normal function of the cpjfw-xe-fjfym prosthesis. See below for hemodynamic parameters. Slight improvement in left and right ventricular systolic function. LVEF now 20-25%. No pericardial effusion. See report for additional findings. Procedure Limited - 46581. Doppler - 33882. Color Doppler - 15181. Left Ventricle Left ventricle is of normal [...] Date: 307:33 AMBP: 96/63 mmHg Patient Location: [address] : 1955 Height: 154 cm Account: [id number] Age: 67 yrs Weight: 75 kg Gender: Female BSA: 1.7 m2 Ordering Physician: RADHA HOLLINS Referring Physician: RADHA HOLLINS Performed By: Dilma Bee RDCS Reason For Study: Guidance for TAVR procedure Exam Location: [facility]. Interpretation Summary PRE TAVR: There is severe [...] 28mL/m2. POST TAVR: Normal function of the umzix-fr-zsnrs prosthesis. See belowfor hemodynamic parameters. Slight improvement in left and right ventricularsystolic function. LVEF now 20-25%. No pericardial effusion. See report for additional findings. Procedure Limited - 93487. Doppler - 73983. Color Doppler - 33233. Left Ventricle Left ventricle is of normal [...] 3-5moderate 5 - 6-14large Aneurysmal 15-16diffuse Radha A Gurvinder CULP ECHO ORDERABLES * CARDIAC CATHETERIZATION (05/12/2023 9:10 AM EDT) Anatomical Region Laterality Modality Other Narrative 05/12/2023 2:37 PM EDT ?[facility] ? Cardiac Catheterization/Intervention Report ? Patient Name: Kirstie, Purnima M. ? Procedure Date: 05/12/2023 ? A #: [id number] ? Primary Physician: Antelmo Sharma ? Case #: [id number] ? File Name: [id number] ? Catheterization Order Number: [id number] ? [facility] ? Final Report [place], [place] ? Patient Name: ? Purnima M. Kirstie ? ID#: ?[id number] ? : ?1955 ? Procedure Date: ? May 12, 2023 ? Case #: ? [id number] ? Room: ? 6 ? Case Physicians: ?Antelmo Sharma M.D. ?Start: ?08:03 ?Alirio Hudson M.D. ?Admission: ??05/08/2023 ?Lynda Mcgowan M.D. ? Discharge: ??05/22/2023 ?Fellow: ? Emad Ileana M.D. ? Referring Physician: ??Mario Alberto Chin M.D. ? 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 ??A premounted 4.00 x 30 mm [place] (MINNA) was ? deployed with a maximum [...] calculated STS risk score was 30.1%. A ofveu-ls-cyjzh ?procedure was performed on the pre-existing bioprosthetic stented ?prosthesis. The priority of the skfsu-rv-zlomu procedure was Elective. ?The procedure was performed [...] Lai 3 Ultra RESILIA 23 mm THV (s/l=[id number]) transcatheter ?valve was inserted using standard technique. [...] to nor was it given in the ?cardiac cath rn. ?Recommended anti-platelet/anti-thrombotic regimen: ?Continue aspirin 81 mg daily for indefinitely. ?These recommendations are made at the time of the intervention. Patient ?and provider preferences or a changing clinical situation may require ?modification of this regimen. Consult [facility] Interventional Cardiology for ?questions. ? Conclusions: ?* [...] regimen. ? Comments: ?Successful right transfemoral TAVR Lptez-tp-Aoizf with a 23 mm Lai 3 ?THV. [...] insertion-coronary, access site angiography, ?temporary pacemaker in cardiac cath rn, intubation-non cath physician, vascular ?closure device, transthoracic echo ??and TAVR. Dr. Alirio Hudson M.D. ?performed the left heart catheterization, access site angiography, ?temporary pacemaker in cardiac cath rn, vascular closure device, transthoracic ?echo , TAVR and CPR during cath. Dr. Lynda Mcgowan M.D. performed the ABG, ?anesthesia and intubation-non cath physician. ? Antelmo Sharma M.D. ? Electronically Signed by: Antelmo Sharma M.D. ? Report Finalized: 05/12/2023 ??14:31 ? Report Last Ammended: 07/01/2023 ??11:30 ? Procedure Note Antelmo Sharma MD - 07/01/2023 [facility] Cardiac Catheterization/Intervention Report Patient Name: Purnima Thacker Procedure Date: 05/12/2023 A #: [id number] Primary Physician: Antelmo Sharma Case #: [id number] File Name: [id number] Catheterization Order Number: [id number] [facility] FinalReport [place], [place] Patient Name: Purnima Thacker ID#:[id number] :1955 Procedure Date: May 12, 2023 Case #: [id number] Room: 6 Case Physicians: Antelmo Sharma M.D. Start: 08:03 Alirio Hudson M.D. Admission:05/08/2023 Lynda Mcgowan M.D. Discharge:05/22/2023 Fellow: Rebekah Tejeda M.D. Referring Physician: Mario Alberto Chin M.D. 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 A hxqgh-ws-sbhwm procedure was performed on the pre-existing bioprosthetic stented prosthesis. The priority of the rsdxr-mq-ofwjc procedure wasElective. The procedure was performed under Moderate sedation performed byLynda Mcgowan M.D. (see anesthesia report for additional details). Alirio Hudson M.D. participated in the case (see Cardiac Surgery reportfor additional details). The TAVR sheath was a 14 Fr Corona eSheath Introducer and theaccess site was femoral. Rapid ventricular pacing was performed. An Corona Lai 3 Ultra RESILIA 23 mm THV (s/t=[id number])transcatheter valve was inserted using standard technique. The [...] prior to nor was it given inthe cardiac cath rn. Recommended anti-platelet/anti-thrombotic regimen: Continue aspirin 81 mg daily for indefinitely. These recommendations are made at the time of the intervention.Patient and provider preferences or a changing clinical situation mayrequire modification of this regimen. Consult [facility] Interventional Cardiologyfor questions. Conclusions: * Nonobstructive disease [...] this regimen. Comments: Successful right transfemoral TAVR Dvqvv-mq-Pfllj with a 23 mmSapien 3 THV. We [...] insertion-coronary, access site angiography, temporary pacemaker in cardiac cath rn, intubation-non cath physician,vascular closure device, transthoracic echo and TAVR. Dr. Alirio Hudson M.D. performed the left heart catheterization, access site angiography, temporary pacemaker in cardiac cath rn, vascular closure device,transthoracic echo , TAVR and [...] POC pH 7.20(Crit ical) 7.35 - 7.45 [facility] Comment:Critical value OK, C C Lab. POC PCO2 42 35 - [address] [facility] POC PO2 260(H) 85 - [address] [facility] POC Base Excess -11.0(L) -3.0 - 3.0 mmol/L [facility] POC HCO3 16.7(L) 20.0 - 26.0 mmol/L [facility] POC Sodium 129(L) 135 - 145 mmol/L [facility] POC Potassium 3.8 3.5 - 5.0 mmol/L [facility] POC Ionized Ca 1.12(L) 1.15 - 1.33 mmol/L [facility] POC Hematocrit 23.0(L) 34.0 - 45.0 % [facility] POC Calc Hgb 7.8(L) 11.2 - 15.7 g/dL [facility] Comment:The calculation of h emoglobin from hematocrit assumes a normal MCHC. POC Bgas Loc CC Lab [facility] Blood 05/12/2023 8:50 AM EDT 05/13/2023 12:00 PM EDT Alirio Hudson MD CHEMISTRY ORDERABLE S [facility] [place] [address] * (ABNORMAL) Point of Care Blood Gas Historical (05/12/2023 8:10 AM EDT) POC pH 7.27(Crit ical) 7.35 - 7.45 [facility] Comment:Critical value Yamel KRAUSE C Lab. POC PCO2 37 35 - [address] [facility] POC PO2 29(Critic al) 85 - [address] [facility] Comment:Critical value Yamel KRAUSE C Lab. POC Base Excess -10.0(L) -3.0 - 3.0 mmol/L [facility] POC HCO3 16.7(L) 20.0 - 26.0 mmol/L [facility] POC Sodium 123(L) 135 - 145 mmol/L [facility] POC Potassium 4.0 3.5 - 5.0 mmol/L [facility] POC Ionized Ca 1.12(L) 1.15 - 1.33 mmol/L [facility] POC Hematocrit 27.0(L) 34.0 - 45.0 % [facility] POC Calc Hgb 9.2(L) 11.2 - 15.7 g/dL [facility] Comment:The calculation of h emoglobin from hematocrit assumes a normal MCHC. POC Bgas Loc CC Lab [facility] Blood 05/12/2023 8:10 AM EDT 05/13/2023 12:00 PM EDT Alirio Hudson MD CHEMISTRY ORDERABLE S Performing Organization Address City/[facility]/ZIP Co de Phone Number [facility] [place] [address] * (ABNORMAL) Lactate, whole blood, send to lab ([facility]) (05/12/2023 7:00 AM EDT) Lactate WB 2.4(H) 0.5 - 2.2 mmol/L [facility] Blood 05/12/2023 7:00 AM EDT 05/12/2023 7:09 AM EDT Narrative Resulting Agency Comment Spec In Lab Radha Hollins MD CHEMISTRY ORDERABL ES Performing Organization Address City/[facility]/ZIP Co de Phone Number [facility] [place] [address] * (ABNORMAL) Comprehensive metabolic panel (non-fasting) (05/12/2023 6:00 AM EDT) Glucose Lvl 167 65 - 199 mg/dL [facility] Comment:Diabetes: >=200 mg/d L plus symptoms BUN 67(H) 8 - 18 mg/dL [facility] Creatinine 2.01(H) 0.70 - 1.20 mg/dL [facility] Sodium 131(L) 135 - 145 mmol/L [facility] Potassium 4.3 3.5 - 5.0 mmol/L [facility] Comment: Please note: ??Patients with WBC >100,000 may have falsely elevated Potassium levels. ??For accurate Potassium quantification in these patients send serum separator tube (gold top) for subsequent determinations. ??Contact the Clinical Chemistry Laboratory if there are any questions. Chloride 97(L) 98 - 107 mmol/L [facility] CO2 14(L) 22 - 31 mmol/L [facility] Anion Gap 20(H) 5 - 15 mmol/L [facility] Calcium 8.6 8.5 - 10.5 mg/dL [facility] Total Protein 6.3 6.1 - 8.0 g/dL [facility] Albumin 3.5 3.2 - 5.2 g/dL [facility] AST 1,435(H) 0 - 30 unit/L [facility] ALT 1,174(H) 0 - 30 unit/L [facility] Alk Phos 100 35 - 105 unit/L [facility] Total Bilirubin 0.9 0.2 - 1.3 mg/dL [facility] Estimated GFR 27(L) >=60 mL/min/1. 73 m?? [facility] [...] Lab Radha Hollins MD CHEMISTRY ORDERABL ES [facility] [place] [address] * (ABNORMAL) Coox2 (05/12/2023 5:08 AM EDT) pO2 Coox 24 mmHg [facility] Hgb Blood Gas 10.4(L) 11.7 - 15.5 g/dL [facility] O2HB Coox 30.7 % [facility] COHB Coox 0.3 % [facility] Comment: Nonsmokers: 0.5-1.5% COHB Smokers: Variable, but usually less than 10% Toxic: 20-30% COHB Lethal: Greater than 60% COHB METHB Coox 0.8 <=1.5 % [facility] Source Coox Mixed Venous [facility] Blood 05/12/2023 5:08 AM EDT 05/12/2023 5:08 AM EDT Radha Hollins MD CHEMISTRY ORDERABL ES [facility] [place] [address] * (ABNORMAL) Coox2 (05/12/2023 3:21 AM EDT) pO2 Coox 25 mmHg [facility] Hgb Blood Gas 10.8(L) 11.7 - 15.5 g/dL [facility] O2HB Coox 32.7 % [facility] COHB Coox 0.3 % [facility] Comment: Nonsmokers: 0.5-1.5% COHB Smokers: Variable, but usually less than 10% Toxic: 20-30% COHB Lethal: Greater than 60% COHB METHB Coox 0.7 <=1.5 % [facility] Source Coox Mixed Venous [facility] Blood 05/12/2023 3:21 AM EDT 05/12/2023 3:21 AM EDT Radha Hollins MD CHEMISTRY ORDERABL ES [facility] [place] [address] * (ABNORMAL) BLOOD GAS 2 ARTERIAL (05/12/2023 3:18 AM EDT) pH Art 7.34(L) 7.35 - 7.45 [facility] pCO2 Art 30(L) 35 - [address] [facility] pO2 Art 72(L) 85 - [address] [facility] HCO3 Art 16.0(L) 20.0 - 26.0 mmol/L [facility] BE Art -9.8(L) -3.0 - 3.0 mmol/L [facility] Hgb Blood Gas 11.0(L) 11.7 - 15.5 g/dL [facility] O2HB Art 89.8(L) 94.0 - 97.0 % [facility] COHB Art 0.3 % [facility] Comment: Nonsmokers: 0.5-1.5% COHB Smokers: Variable, but usually less than 10% Toxic: 20-30% COHB Lethal: Greater than 60% COHB METHB Art 0.7 <=1.5 % [facility] Na Whole Blood 131(L) 135 - 145 mmol/L [facility] K Whole Blood 4.2 3.5 - 5.0 mmol/L [facility] Comment: Please note: Patients with WBC >100,000 may have falsely elevated Potassium levels. Contact the Clinical Chemistry Laboratory if there are any questions. ICa Whole Blood 1.12(L) 1.15 - 1.33 mmol/L [facility] Comment: Note: ??Total bilirubin higher than 20 mg/dL may lead to falsely low ionized calcium. CL Whole Blood 100 98 - 107 mmol/L [facility] Gluc Whole Bld 160 65 - 199 mg/dL [facility] Comment:Diabetes: >=200 mg/d L plus symptoms. Lactate WB 2.7(H) 0.5 - 2.2 mmol/L [facility] Flow Art 5.0 LPM [facility] Blood 05/12/2023 3:18 AM EDT 05/12/2023 3:18 AM EDT Radha Hollins MD CHEMISTRY ORDERABL ES Performing Organization Address [facility] [place] [address] * (ABNORMAL) Coox2 (05/12/2023 1:14 AM EDT) pO2 Coox 28 mmHg [facility] Hgb Blood Gas 10.9(L) 11.7 - 15.5 g/dL [facility] O2HB Coox 37.3 % [facility] COHB Coox 0.3 % [facility] Comment: Nonsmokers: 0.5-1.5% COHB Smokers: Variable, but usually less than 10% Toxic: 20-30% COHB Lethal: Greater than 60% COHB METHB Coox 0.5 <=1.5 % [facility] Source Coox Mixed Venous [facility] Blood 05/12/2023 1:14 AM EDT 05/12/2023 1:14 AM EDT Radha Hollins MD CHEMISTRY ORDERABL ES Performing Organization Address [facility] Co de Phone Number [facility] [place] [address] * (ABNORMAL) BLOOD GAS 2 ARTERIAL (05/12/2023 1:06 AM EDT) pH Art 7.34(L) 7.35 - 7.45 [facility] pCO2 Art 30(L) 35 - [address] [facility] pO2 Art 81(L) 85 - [address] [facility] HCO3 Art 15.7(L) 20.0 - 26.0 mmol/L [facility] BE Art -10.1(L) -3.0 - 3.0 mmol/L [facility] Hgb Blood Gas 11.0(L) 11.7 - 15.5 g/dL [facility] O2HB Art 92.3(L) 94.0 - 97.0 % [facility] COHB Art 0.2 % [facility] Comment: Nonsmokers: 0.5-1.5% COHB Smokers: Variable, but usually less than 10% Toxic: 20-30% COHB Lethal: Greater than 60% COHB METHB Art 0.6 <=1.5 % [facility] Na Whole Blood 131(L) 135 - 145 mmol/L [facility] K Whole Blood 4.2 3.5 - 5.0 mmol/L [facility] Comment: Please note: Patients with WBC >100,000 may have falsely elevated Potassium levels. Contact the Clinical Chemistry Laboratory if there are any questions. ICa Whole Blood 1.13(L) 1.15 - 1.33 mmol/L [facility] Comment: Note: ??Total bilirubin higher than 20 mg/dL may lead to falsely low ionized calcium. CL Whole Blood 99 98 - 107 mmol/L [facility] Gluc Whole Bld 132 65 - 199 mg/dL [facility] Comment:Diabetes: >=200 mg/d L plus symptoms. Lactate WB 2.7(H) 0.5 - 2.2 mmol/L [facility] Flow Art 5.0 LPM [facility] Blood 05/12/2023 1:06 AM EDT 05/12/2023 1:06 AM EDT Radha Hollins MD CHEMISTRY ORDERABL ES [facility] [place] [address] * (ABNORMAL) Differential, Automated (05/12/2023 1:05 AM EDT) Neutrophils % 83.3 % [facility] Neutr Abs (ANC) 7.49(H) 1.70 - 6.10 x10(3)/[facility]AT[facility] Lymphocytes % 7.1 % [facility] Lymphocytes Abs 0.6(L) 0.9 - 3.2 x10(3)/[facility]ORATORY Monocytes % 8.9 % [facility] Monocyte Abs 0.8 0.3 - 0.9 x10(3)/[facility] Eosinophils % 0.0 % [facility] Eosinophils Abs 0.0 0.0 - 0.4 x10(3)/[facility]ORY Basophils % 0.1 % [facility] Basophils Abs 0.0 0.0 - 0.1 x10(3)/[facility]AT[facility] Immature Gran % 0.60 % [facility] Comment: Immature granulocytes(IG's)percentage and absolute count will include metamyelocytes, myelocytes, and promyelocytes. Blood smears from CBCs yielding IG's will be scanned manually for concordance. If this scan disagrees with the automated IG or if promyelocytes are noted, a manual differential will be performed. Amanda Gran Abs 0.05(H) 0.00 - 0.04 x10(3)/[facility] Blood 05/12/2023 1:05 AM EDT 05/12/2023 1:15 AM EDT Narrative Resulting Agency Comment Spec In Lab Gianni Fletcher MD HEMATOLOGY ORDERABLE S [facility] [place] [address] * (ABNORMAL) Hemogram (05/12/2023 1:05 AM EDT) WBC 9.0 4.0 - 9.5 x10(3)/[facility]ORATORY RBC 3.01(L) 4.00 - 5.21 x10(6)/[facility] Hemoglobin 9.8(L) 11.7 - 15.5 g/dL [facility] Hematocrit 28.7(L) 35.7 - 45.8 % [facility] MCV 95.3(H) 82.6 - 94.[address] [facility] MCH 32.6(H) 27.1 - 32.[address] [facility] MCHC 34.1 31.7 - 35.0 g/dL [facility] Platelets 186 145 - 357 x10(3)/[facility] LABORATORY RDWSD 43.7 37.0 - 46.0 [facility]ORY RDWCV 12.7 11.5 - 14.1 % [facility] MPV 10.3 7.6 - 12.9 [facility] nRBC % Auto 0.0 % [facility] nRBC Abs Auto 0.000 0.000 - 0.000 x10(3)/[facility] Blood 05/12/2023 1:05 AM EDT 05/12/2023 1:15 AM EDT Narrative Resulting Agency Comment Spec In Lab Gianni Feltcher MD HEMATOLOGY ORDERABLE S [facility] [place] [address] * (ABNORMAL) Comprehensive metabolic panel (non-fasting) (05/12/2023 1:05 AM EDT) Glucose Lvl 141 65 - 199 mg/dL [facility] Comment:Diabetes: >=200 mg/d L plus symptoms BUN 63(H) 8 - 18 mg/dL [facility] Creatinine 1.86(H) 0.70 - 1.20 mg/dL [facility] Sodium 131(L) 135 - 145 mmol/L [facility] Potassium 4.4 3.5 - 5.0 mmol/L [facility] Comment: Please note: ??Patients with WBC >100,000 may have falsely elevated Potassium levels. ??For accurate Potassium quantification in these patients send serum separator tube (gold top) for subsequent determinations. ??Contact the Clinical Chemistry Laboratory if there are any questions. Chloride 96(L) 98 - 107 mmol/L [facility] CO2 14(L) 22 - 31 mmol/L [facility] Anion Gap 21(H) 5 - 15 mmol/L [facility] Calcium 9.0 8.5 - 10.5 mg/dL [facility] Total Protein 6.6 6.1 - 8.0 g/dL [facility] Albumin 3.9 3.2 - 5.2 g/dL [facility] AST 1,227(H) 0 - 30 unit/L [facility] ALT 1,097(H) 0 - 30 unit/L [facility] Alk Phos 108(H) 35 - 105 unit/L [facility] Total Bilirubin 1.0 0.2 - 1.3 mg/dL [facility] Estimated GFR 29(L) >=60 mL/min/1. 73 m?? [facility] Lab Radha Hollins MD CHEMISTRY ORDERABL ES [facility] [address] * XR Chest One View (05/12/2023 1:00 [...] please contact the health child day care provider that requested your imaging first. ? Narrative [...] questions please contactthe health child day care provider that requested your imaging first. Radha Hollins MD IMG DX ORDERABLES * (ABNORMAL) Coox2 (05/12/2023 12:30 AM EDT) pO2 Coox 22 mmHg [facility] Hgb Blood Gas 10.9(L) 11.7 - 15.5 g/dL [facility] O2HB Coox 25.1 % [facility] COHB Coox 0.3 % [facility] Comment: Nonsmokers: 0.5-1.5% COHB Smokers: Variable, but usually less than 10% Toxic: 20-30% COHB Lethal: Greater than 60% COHB METHB Coox 1.4 <=1.5 % [facility] Source Coox Mixed Venous [facility] Blood 05/12/2023 12:3 0 AM EDT 05/12/2023 12:30 AM EDT Radha Hollins MD CHEMISTRY ORDERABL ES [facility] [place] [address] * XR Chest One View (05/11/2023 11:45 [...] please contact the health child day care provider that requested your imaging first. ? Narrative [...] questions please contactthe health child day care provider that requested your imaging first. Radha Hollins MD IMG DX ORDERABLES * (ABNORMAL) Lactate, whole blood, send to lab ([facility]) (05/11/2023 7:40 PM EDT) Lactate WB 4.8(Critic al) 0.5 - 2.2 mmol/L [facility] Comment:Called by: [facility], Read back by: Magdalena Baires, Date/Time:05/11/23 19:54. Blood 05/11/2023 7:40 PM EDT 05/11/2023 7:49 PM EDT Narrative Resulting Agency Comment Spec In Lab Radha Hollins MD CHEMISTRY ORDERABL ES Performing Organization Address City/[facility]/ZIP Co de Phone Number [facility] [place] [address] * Urine culture (05/11/2023 7:22 PM EDT) [facility] Urine Culture 50,000-99,000 cfu/ml Normal mucosal herman Susceptibilit y testing not routinely performed for Coagulase Negative Staphylococcu s species and other Gram Positive organisms from urine. [facility] Clean Catch Urine 05/11/2023 7:22 PM EDT 05/11/2023 8:50 PM EDT Narrative Resulting Agency Comment Spec In Lab Brody Kaplan ANURAG MICROBIOLOGY - GENE RAL ORDERABLES Performing Organization Address [facility] Co de Phone Number [facility] [place] [address] * (ABNORMAL) Urinalysis Microscopic Exam (05/11/2023 7:22 PM EDT) [facility] RBC UA 2 0 - 4 /HPF [facility] WBC UA >100(H) 0 - 5 /HPF [facility] Bacteria UA Occasional (A) None /HPF [facility] Squam Epith UA 5(H) <=4 /HPF [facility] Hyaline Cast UA 3(H) 0 - 2 /LPF [facility] Clean Catch Urine 05/11/2023 7:22 PM EDT 05/11/2023 7:31 PM EDT Narrative Resulting Agency Comment Spec In Lab Brody Kaplan LEGEND MAKER URINE ORDERABLES Performing Organization Address [facility]/ZIP Co de Phone Number [facility] [place] [address] * (ABNORMAL) Urinalysis with reflex Culture (05/11/2023 7:22 PM EDT) [facility] Glucose UA Negative Negative mg/dL [facility] Protein UA Trace(A) Negative mg/dL [facility] Bilirubin UA Negative Negative mg/dL [facility] Comment: Clinical correlation required for positive Urine Bilirubin results as false positive may occur with some drugs and drug related products. If a false positive is suspected a serum total bilirubin should be considered if clinically indicated. Urobilinogen UA Normal Normal mg/dL [facility] pH UA 5.0 5.0 - 8.0 [facility] Blood UA Trace(A) Negative mg/dL [facility] Ketones UA Negative Negative mg/dL [facility] Nitrite UA Negative Negative [facility] Leukocytes UA Moderate(A) Negative [facility] Appearance UA Cloudy(A) Clear [facility] Spec [place] UA >=1.030(A) 1.005 - 1.030 [facility] Color UA Yellow Yellow [facility] Culture Reflexed Yes MAR Y [facility] Clean Catch Urine 05/11/2023 7:22 PM EDT 05/11/2023 7:31 PM EDT Narrative Resulting Agency Comment Spec In Lab Brody Kaplan APRN URINE ORDERABLES Performing Organization Address City/[facility]/ZIP Co de Phone Number [facility] [place] [address] * (ABNORMAL) pro-Brain Natriuretic Peptide (05/11/2023 7:11 PM EDT) ProBNP >35,000(H) <=124 pg/mL [facility] Blood 05/11/2023 7:11 PM EDT 05/11/2023 7:26 PM EDT Narrative Resulting Agency Comment Spec In Lab Radha Hollins MD CHEMISTRY ORDERABL ES [facility] [place] [address] * (ABNORMAL) Lactate, whole blood, send to lab ([facility]) (05/11/2023 2:47 PM EDT) Lactate WB 2.9(H) 0.5 - 2.2 mmol/L [facility] Blood 05/11/2023 2:47 PM EDT 05/11/2023 2:53 PM EDT Narrative Resulting Agency Comment Spec In Lab Juan Luis Gonzalez MD CHEMISTRY ORDERABLES [facility] [address] * (ABNORMAL) CT Angiogram Abdomen & Pelvis [...] please contact the health child day care provider that requested your imaging first. ? Electronically signed by: Eileen Gomes MD, [facility] ([phone]), at 05/11/2023 2:42 PM Narrative 05/11/2023 2:42 PM EDT EXAMINATION: CT [...] please contact the health child day care provider that requested your imaging first. ? Electronically signed by: Cullen Narayanan MD, [facility] ([phone]), at 05/11/2023 4:37 PM Narrative 05/11/2023 4:37 [...] 610 mm2 Circumference: 88 mm Calcification: Mild Qizvvle-bs-vhfwbkwg height: Left: 6.2 mm Right: 5.8 mm THORACIC AORTA Description: Normal course and caliber. ??Mild diffuse atherosclerotic changes. No acute aortopathy noted. Metallurgical Tester dimensions: Aortic root: 27.6 mm Max ascending aorta: 30.5 mm x 27.7 mm Suggested fluoroscopic angulation based on line extending through the nadirs of the three sinuses of Valsalva, set equidistant: ?? CUBAN ??9 degrees; cranial 7 degrees MITRAL: Mitral [...] 610 mm2 Circumference: 88 mm Calcification: Mild Zulkiex-le-ozuhwwtn height: Left: 6.2 mm Right: 5.8 mm THORACIC AORTA Description: Normal course and caliber. Mild diffuse atheroscleroticchanges. No acute aortopathy noted. Metallurgical Tester dimensions: Aortic root: 27.6 mm Max ascending aorta: 30.5 mm x 27.7 mm Suggested fluoroscopic angulation based on line extending through thenadirs of the three sinuses of Valsalva, set equidistant: CUBAN 9 degrees; cranial 7 degrees MITRAL: Mitral [...] questions please contactthe health child day care provider that requested your imaging first. Electronically signed by: Cullen Narayanan MD, [facility]([phone]), at 05/11/2023 4:37 PM Antelmo Sharma MD IMG CT ORDERABLES * (ABNORMAL) Lactate, whole blood, send to lab ([facility]) (05/11/2023 9:29 AM EDT) Pathologist [facility] Lactate WB 3.1(H) 0.5 - 2.2 mmol/L [facility] Blood 05/11/2023 9:29 AM EDT 05/11/2023 9:38 AM EDT Narrative Resulting Agency Comment Spec In Lab Juan Luis Gonzalez MD CHEMISTRY ORDERABLES [facility] [place] [address] * (ABNORMAL) Differential, Automated (05/11/2023 4:42 AM EDT) [facility] Neutrophils % 78.1 % [facility] Neutr Abs (ANC) 5.46 1.70 - 6.10 x10(3)/mc L [facility] Lymphocytes % 10.6 % [facility] Lymphocytes Abs 0.7(L) 0.9 - 3.2 x10(3)/mc L [facility] Monocytes % 9.6 % [facility] Monocyte Abs 0.7 0.3 - 0.9 x10(3)/mc L [facility] Eosinophils % 0.0 % [facility] Eosinophils Abs 0.0 0.0 - 0.4 x10(3)/mc L [facility] Basophils % 0.4 % [facility] Basophils Abs 0.0 0.0 - 0.1 x10(3)/[facility] Immature Gran % 1.30 % [facility] Comment: Immature granulocytes(IG's)percentage and absolute count will include metamyelocytes, myelocytes, and promyelocytes. Blood smears from CBCs yielding IG's will be scanned manually for concordance. If this scan disagrees with the automated IG or if promyelocytes are noted, a manual differential will be performed. Amanda Gran Abs 0.09(H) 0.00 - 0.04 x10(3)/[facility] Blood 05/11/2023 4:42 AM EDT 05/11/2023 4:49 AM EDT Narrative Resulting Agency Comment Spec In Lab Klaudia Reid MD HEMATOLOGY OR DERABLES Performing Organization Address City/State/[facility] Co de Phone Number [facility] [place] [address] * (ABNORMAL) Hemogram (05/11/2023 4:42 AM EDT) WBC 7.0 4.0 - 9.5 x10(3)/[facility] RBC 3.44(L) 4.00 - 5.21 x10(6)/[facility] Hemoglobin 11.1(L) 11.7 - 15.5 g/dL [facility] Hematocrit 32.7(L) 35.7 - 45.8 % [facility] MCV 95.1(H) 82.6 - 94.[address] [facility] MCH 32.3(H) 27.1 - 32.[address] [facility] MCHC 33.9 31.7 - 35.0 g/dL [facility] Platelets 165 145 - 357 x10(3)/[facility] RDWSD 43.1 37.0 - 46.[address] [facility] RDWCV 12.7 11.5 - 14.1 % [facility] MPV 10.1 7.6 - 12.[address] [facility] nRBC % Auto 0.0 % [facility] nRBC Abs Auto 0.000 0.000 - 0.000 x10(3)/mcL [facility] Blood 05/11/2023 4:42 AM EDT 05/11/2023 4:49 AM EDT Narrative Resulting Agency Comment Spec In Lab Klaudia Reid MD HEMATOLOGY OR DERABLES Performing Organization Address [facility] Co de Phone Number [facility] [place] [address] * Heparin (unfractionated) Level (05/11/2023 4:42 AM EDT) Heparin UFH Level 0.46 IU/mL [facility] Comment: Heparin (anti-Xa) levels should [...] MD HEMATOLOGY ORDERAB LES Performing Organization Address [facility]/ZIP Co de Phone Number [facility] [place] [address] * (ABNORMAL) Comprehensive metabolic panel (non-fasting) (05/11/2023 4:42 AM EDT) Glucose Lvl 143 65 - 199 mg/dL [facility] Comment:Diabetes: >=200 mg/d L plus symptoms BUN 42(H) 8 - 18 mg/dL [facility] Creatinine 1.24(H) 0.70 - 1.20 mg/dL [facility] Sodium 134(L) 135 - 145 mmol/L [facility] Potassium 4.6 3.5 - 5.0 mmol/L [facility] Comment: Please note: ??Patients with WBC >100,000 may have falsely elevated Potassium levels. ??For accurate Potassium quantification in these patients send serum separator tube ([facility] top) for subsequent determinations. ??Contact the Clinical Chemistry Laboratory if there are any questions. Chloride 99 98 - 107 mmol/L [facility] CO2 14(L) 22 - 31 mmol/L [facility] Anion Gap 21(H) 5 - 15 mmol/L [facility] Calcium 9.6 8.5 - 10.5 mg/dL [facility] Total Protein 7.2 6.1 - 8.0 g/dL [facility] Albumin 3.7 3.2 - 5.2 g/dL [facility] AST 144(H) 0 - 30 unit/L [facility] Comment:result rechecked-ssc ALT 130(H) 0 - 30 unit/L [facility] Comment:result rechecked-ssc Alk Phos 72 35 - 105 unit/L [facility] Total Bilirubin 0.8 0.2 - 1.3 mg/dL [facility] Estimated GFR 48(L) >=60 mL/min/1. 73 m?? [facility] [...] MD CHEMISTRY ORDERABL ES Performing Organization Address City/[facility]/ZIP Co de Phone Number [facility] [place] [address] * EKG 12 Lead (05/10/2023 1:16 PM EDT) Ventricular rate 118 BPM MUSE SYSTEM Atrial Rate 118 BPM MUSE SYSTEM P-R Interval 152 ms MUSE SYSTEM QRS Duration 104 ms MUSE SYSTEM Q-T Interval 316 ms MUSE SYSTEM QTC Calculated (Bezet) 442 ms MUSE SYSTEM Calculated P [place] 29 degrees MUSE SYSTEM Calculated R [place] 18 degrees MUSE SYSTEM Calculated T [place] -173 degrees MUSE SYSTEM INTERPRETATION Sinus tachycardia [...] Anterior leads Confirmed by MD Mono, Eleni ([id number]) on 05/10/2023 8:47:46 PM MUSE SYSTEM 05/10/2023 1:16 PM EDT 05/10/2023 8:47 PM EDT Juan Luis Gonzalez MD ECG ORDERABLES Performing Organization Address [facility]/ZIP Co de Phone Number MUSE SYSTEM * Lactate, whole blood, send to lab ([facility]) (05/10/2023 11:52 AM EDT) Lactate WB 1.8 0.5 - 2.2 mmol/L [facility] Blood 05/10/2023 11:5 2 AM EDT 05/10/2023 12:13 PM EDT Narrative Resulting Agency Comment Spec In Lab Juan Luis Gonzalez MD CHEMISTRY ORDERABLES [facility] [place] [address] * XR Chest One View (05/10/2023 11:16 [...] please contact the health child day care provider that requested your imaging first. ? Electronically signed by: ALIX RUVALCABA MD, [facility] ([phone]), at 05/10/2023 1:25 PM Narrative 05/10/2023 1:25 [...] questions please contactthe health child day care provider that requested your imaging first. Electronically signed by: ALIX RUVALCABA MD, [facility]([phone]), at 05/10/2023 1:25 PM Juan Luis Gonzalez MD IMG DX ORDERABLES * EKG 12 Lead (05/10/2023 7:59 AM EDT) Ventricular rate 115 BPM MUSE SYSTEM Atrial Rate 115 BPM MUSE SYSTEM P-R Interval 142 ms MUSE SYSTEM QRS Duration 102 ms MUSE SYSTEM Q-T Interval 322 ms MUSE SYSTEM QTC Calculated (Bezet) 445 ms MUSE SYSTEM Calculated P [place] 36 degrees MUSE SYSTEM Calculated R [place] 28 degrees MUSE SYSTEM Calculated T [place] -119 degrees MUSE SYSTEM INTERPRETATION Sinus tachycardia with frequent Premature ventricular complexes and Fusion complexes ST & T wave abnormality, consider lateral ischemia Abnormal ECG When compared with ECG of 08-MAY-2023 15:51, No significant change was found I personally reviewed the tracing and edited the fellows interpretation Confirmed by fellow MD Anitha, Carissa ([id number]) on 05/11/2023 6:19:54 AM Confirmed by MD Ugalde Hannah ([id number]) on 05/11/2023 3:18:56 PM MUSE SYSTEM 05/10/2023 7:59 AM EDT 05/11/2023 3:18 PM EDT Radha Hollins MD ECG ORDERABLES MUSE SYSTEM * (ABNORMAL) Differential, Automated (05/10/2023 2:28 AM EDT) Neutrophils % 77.1 % [facility] Neutr Abs (ANC) 4.01 1.70 - 6.10 x10(3)/[facility] Lymphocytes % 14.0 % [facility] Lymphocytes Abs 0.7(L) 0.9 - 3.2 x10(3)/[facility] Monocytes % 7.7 % [facility] Monocyte Abs 0.4 0.3 - 0.9 x10(3)/[facility] Eosinophils % 0.4 % [facility] Eosinophils Abs 0.0 0.0 - 0.4 x10(3)/[facility] Basophils % 0.4 % [facility] Basophils Abs 0.0 0.0 - 0.1 x10(3)/[facility] Immature Gran % 0.40 % [facility] Comment: Immature granulocytes(IG's)percentage and absolute count will include metamyelocytes, myelocytes, and promyelocytes. Blood smears from CBCs yielding IG's will be scanned manually for concordance. If this scan disagrees with the automated IG or if promyelocytes are noted, a manual differential will be performed. Amanda Gran Abs 0.02 0.00 - 0.04 x10(3)/[facility] Blood 05/10/2023 2:28 AM EDT 05/10/2023 2:57 AM EDT Narrative Resulting Agency Comment Spec In Lab Klaudia Reid MD HEMATOLOGY OR DERABLES [facility] [place] [address] * (ABNORMAL) Hemogram (05/10/2023 2:28 AM EDT) WBC 5.2 4.0 - 9.5 x10(3)/[facility] RBC 3.11(L) 4.00 - 5.21 x10(6)/[facility] Hemoglobin 10.2(L) 11.7 - 15.5 g/dL [facility] Hematocrit 30.2(L) 35.7 - 45.8 % [facility] MCV 97.1(H) 82.6 - 94.[address] [facility] MCH 32.8(H) 27.1 - 32.[address] [facility] MCHC 33.8 31.7 - 35.0 g/dL [facility] Platelets 151 145 - 357 x10(3)/[facility] RDWSD 44.9 37.0 - 46.0 [facility] RDWCV 12.8 11.5 - 14.1 % [facility] MPV 9.8 7.6 - 12.9 [facility] nRBC % Auto 0.0 % [facility] nRBC Abs Auto 0.000 0.000 - 0.000 x10(3)/[facility] Blood 05/10/2023 2:28 AM EDT 05/10/2023 2:57 AM EDT Narrative Resulting Agency Comment Spec In Lab Klaudia Reid MD HEMATOLOGY OR DERABLES Performing Organization Address City/State/[facility] Co de Phone Number [facility] [place] [address] * (ABNORMAL) Comprehensive metabolic panel (non-fasting) (05/10/2023 2:28 AM EDT) Glucose Lvl 100 65 - 199 mg/dL [facility] Comment:Diabetes: >=200 mg/d L plus symptoms BUN 30(H) 8 - 18 mg/dL [facility] Creatinine 0.90 0.70 - 1.20 mg/dL [facility] Sodium 134(L) 135 - 145 mmol/L [facility] Potassium 4.1 3.5 - 5.0 mmol/L [facility] Comment: Please note: ??Patients with WBC >100,000 may have falsely elevated Potassium levels. ??For accurate Potassium quantification in these patients send serum separator tube (gold top) for subsequent determinations. ??Contact the Clinical Chemistry Laboratory if there are any questions. Chloride 102 98 - 107 mmol/L [facility] CO2 20(L) 22 - 31 mmol/L [facility] Anion Gap 12 5 - 15 mmol/L [facility] Calcium 9.3 8.5 - 10.5 mg/dL [facility] Total Protein 6.4 6.1 - 8.0 g/dL [facility] Albumin 3.7 3.2 - 5.2 g/dL [facility] AST 24 0 - 30 unit/L [facility] ALT 14 0 - 30 unit/L [facility] Alk Phos 70 35 - 105 unit/L [facility] Total Bilirubin 0.5 0.2 - 1.3 mg/dL [facility] Estimated GFR 70 >=60 mL/min/1. 73 m?? [facility] [...] Lab Radha Hollins MD CHEMISTRY ORDERABL ES [facility] [place] [address] * Heparin (unfractionated) Level (05/10/2023 2:28 AM EDT) [facility] Heparin UFH Level 0.37 IU/mL [facility] Comment: Heparin (anti-Xa) levels should [...] MD HEMATOLOGY ORDERAB LES Performing Organization Address [facility]/State/ZIP Co de Phone Number [facility] [place] [address] * (ABNORMAL) Differential, Automated (05/09/2023 4:00 AM EDT) [facility] Neutrophils % 81.7 % [facility] Neutr Abs (ANC) 5.26 1.70 - 6.10 x10(3)/mc L [facility] Lymphocytes % 10.7 % [facility] Lymphocytes Abs 0.7(L) 0.9 - 3.2 x10(3)/mc L [facility] Monocytes % 6.5 % [facility] Monocyte Abs 0.4 0.3 - 0.9 x10(3)/mc L [facility] Eosinophils % 0.5 % [facility] Eosinophils Abs 0.0 0.0 - 0.4 x10(3)/[facility] Basophils % 0.3 % [facility] Basophils Abs 0.0 0.0 - 0.1 x10(3)/[facility] Immature Gran % 0.30 % [facility] Comment: Immature granulocytes(IG's)percentage and absolute count will include metamyelocytes, myelocytes, and promyelocytes. Blood smears from CBCs yielding IG's will be scanned manually for concordance. If this scan disagrees with the automated IG or if promyelocytes are noted, a manual differential will be performed. Amanda Gran Abs 0.02 0.00 - 0.04 x10(3)/[facility] Blood 05/09/2023 4:00 AM EDT 05/09/2023 4:19 AM EDT Narrative Resulting Agency Comment Spec In Lab Klaudia Reid MD HEMATOLOGY OR DERABLES Performing Organization Address City/State/[facility] Co de Phone Number [facility] [place] [address] * (ABNORMAL) Hemogram (05/09/2023 4:00 AM EDT) WBC 6.4 4.0 - 9.5 x10(3)/[facility] RBC 3.15(L) 4.00 - 5.21 x10(6)/[facility] Hemoglobin 10.2(L) 11.7 - 15.5 g/dL [facility] Hematocrit 30.3(L) 35.7 - 45.8 % [facility] MCV 96.2(H) 82.6 - 94.[address] [facility] MCH 32.4(H) 27.1 - 32.0 pg [facility] MCHC 33.7 31.7 - 35.0 g/dL [facility] Platelets 151 145 - 357 x10(3)/[facility] RDWSD 44.7 37.0 - 46.[address] [facility] RDWCV 12.8 11.5 - 14.1 % [facility] MPV 9.4 7.6 - 12.[address] [facility] nRBC % Auto 0.0 % [facility] nRBC Abs Auto 0.000 0.000 - 0.000 x10(3)/mcL [facility] Blood 05/09/2023 4:00 AM EDT 05/09/2023 4:19 AM EDT Narrative Resulting Agency Comment Spec In Lab Klaudia Reid MD HEMATOLOGY OR DERABLES Performing Organization Address [facility]/ZIP Co de Phone Number [facility] [place] [address] * Heparin (unfractionated) Level (05/09/2023 4:00 AM EDT) Heparin UFH Level 0.47 IU/mL [facility] Comment: Heparin (anti-Xa) levels should [...] MD HEMATOLOGY ORDERAB LES Performing Organization Address City/[facility]/ZIP Co de Phone Number [facility] [place] [address] * (ABNORMAL) Comprehensive metabolic panel (non-fasting) (05/09/2023 4:00 AM EDT) Glucose Lvl 108 65 - 199 mg/dL [facility] Comment:Diabetes: >=200 mg/d L plus symptoms BUN 31(H) 8 - 18 mg/dL [facility] Creatinine 1.03 0.70 - 1.20 mg/dL [facility] Sodium 137 135 - 145 mmol/L [facility] Potassium 4.4 3.5 - 5.0 mmol/L [facility] Comment: Please note: ??Patients with WBC >100,000 may have falsely elevated Potassium levels. ??For accurate Potassium quantification in these patients send serum separator tube (gold top) for subsequent determinations. ??Contact the Clinical Chemistry Laboratory if there are any questions. Chloride 102 98 - 107 mmol/L [facility] CO2 20(L) 22 - 31 mmol/L [facility] Anion Gap 15 5 - 15 mmol/L [facility] Calcium 9.3 8.5 - 10.5 mg/dL [facility] Total Protein 6.6 6.1 - 8.0 g/dL [facility] Albumin 3.8 3.2 - 5.2 g/dL [facility] AST 32(H) 0 - 30 unit/L [facility] ALT 18 0 - 30 unit/L [facility] Alk Phos 78 35 - 105 unit/L [facility] Total Bilirubin 0.5 0.2 - 1.3 mg/dL [facility] Estimated GFR 60 >=60 mL/min/1. 73 m?? [facility] MD CHEMISTRY ORDERABL ES Performing Organization Address City/[facility]/ZIP Co de Phone Number [facility] [place] [address] * (ABNORMAL) pro-Brain Natriuretic Peptide (05/08/2023 4:00 PM EDT) ProBNP 25,503(H) <=124 pg/mL [facility] Blood Venous Draw / Unknown 05/08/2023 4:00 PM EDT 05/08/2023 4:25 PM EDT Narrative Resulting Agency Comment Spec In Lab Juan Luis Gonzalez MD CHEMISTRY ORDERABLES Performing Organization Address [facility]/ZIP Co de Phone Number [facility] [place] [address] * Magnesium (05/08/2023 4:00 PM EDT) Magnesium 0.82 0.69 - 1.07 mmol/L [facility] Blood 05/08/2023 4:00 PM EDT 05/08/2023 4:06 PM EDT Narrative Resulting Agency Comment Spec In Lab Enrique Chua MD CHEMISTRY ORDERABLES Performing Organization Address [facility]/ZIP Co de Phone Number [facility] [address] * Potassium (05/08/2023 4:00 PM EDT) Potassium 3.9 3.5 - 5.0 mmol/[facility] [...] CHEMISTRY ORDERABL ES Performing Organization Address [facility] Co de Phone Number [facility] [place] [address] * Heparin (unfractionated) Level (05/08/2023 4:00 PM EDT) [facility] Heparin UFH Level 0.43 IU/mL [facility] Comment: Heparin (anti-Xa) levels should [...] MD HEMATOLOGY ORDERAB LES Performing Organization Address [facility] Co de Phone Number [facility] [place] [address] * EKG 12 Lead (05/08/2023 3:51 PM EDT) Ventricular rate 98 BPM MUSE SYSTEM Atrial Rate 98 BPM MUSE SYSTEM P-R Interval 150 ms MUSE SYSTEM QRS Duration 102 ms MUSE SYSTEM Q-T Interval 358 ms MUSE SYSTEM QTC Calculated (Bezet) 457 ms MUSE SYSTEM Calculated P [place] 38 degrees MUSE SYSTEM Calculated R [place] 48 degrees MUSE SYSTEM Calculated T [place] -112 degrees MUSE SYSTEM INTERPRETATION Sinus rhythm with frequent and consecutive Premature ventricular and fusion complexes Septal infarct , age undetermined ST & T wave abnormality, consider anterolateral ischemia Abnormal ECG When compared with ECG of 09-NOV-2022 11:17, T wave inversion now evident in Anterolateral leads Confirmed by MD Harshil, Enrique Bell ([id number]) on 05/10/2023 8:11:46 AM MUSE SYSTEM 05/08/2023 3:51 PM EDT 05/10/2023 8:11 AM EDT Radha Hollins MD ECG ORDERABLES MUSE SYSTEM * (ABNORMAL) Differential, Automated (05/08/2023 11:38 AM EDT) Neutrophils % 71.3 % [facility] Neutr Abs (ANC) 2.91 1.70 - 6.10 x10(3)/ L [facility] Lymphocytes % 19.1 % [facility] Lymphocytes Abs 0.8(L) 0.9 - 3.2 x10(3)/[facility] Monocytes % 9.0 % [facility] Monocyte Abs 0.4 0.3 - 0.9 x10(3)/[facility] LABORATORY Eosinophils % 0.2 % [facility] Eosinophils Abs 0.0 0.0 - 0.4 x10(3)/[facility] LABORATORY Basophils % 0.2 % [facility] Basophils Abs 0.0 0.0 - 0.1 x10(3)/[facility] LABORATORY Immature Gran % 0.20 % ST. [...] x10(3)/mc L [facility] Blood 05/08/2023 11:3 8 AM EDT 05/08/2023 11:44 AM EDT Narrative Resulting Agency Comment Spec In Lab Lincoln Sal MD HEMATOLOGY ORDERA BLES Performing Organization Address City/State/[facility] Co de Phone Number [facility] [place] [address] * (ABNORMAL) Hemogram (05/08/2023 11:38 AM EDT) WBC 4.1 4.0 - 9.5 x10(3)/[facility] LABORATORY RBC 3.05(L) 4.00 - 5.21 x10(6)/[facility] LABORATORY Hemoglobin 10.2(L) 11.7 - 15.5 g/dL [facility] Hematocrit 29.6(L) 35.7 - 45.8 % [facility] MCV 97.0(H) 82.6 - 94.4 [facility] LABORATORY MCH 33.4(H) 27.1 - 32.[address] [facility] MCHC 34.5 31.7 - 35.0 g/dL [facility] Platelets 136(L) 145 - 357 x10(3)/[facility] LABORATORY RDWSD 44.3 37.0 - 46.0 [facility] LABORATORY RDWCV 12.6 11.5 - 14.1 % [facility] MPV 9.4 7.6 - 12.9 [facility] LABORATORY nRBC % Auto 0.0 % [facility] nRBC Abs Auto 0.000 0.000 - 0.000 x10(3)/[facility] LABORATORY Blood 05/08/2023 11:3 8 AM EDT 05/08/2023 11:44 AM EDT Narrative Resulting Agency Comment Spec In Lab Lincoln Sal MD HEMATOLOGY ORDERA BLES Performing Organization Address [facility] Co de Phone Number [facility] [place] [address] * TSH (05/08/2023 11:38 AM EDT) TSH 1.27 0.27 - 4.20 mcIU/mL [facility] Comment: Reference Interval (mcIU/mL): Females: ??First Trimester: 0.23-3.88 ??Second Trimester: 0.22-3.90 ??Third Trimester: 0.44-4.66 Blood 05/08/2023 11:3 8 AM EDT 05/08/2023 11:44 AM EDT Narrative Resulting Agency Comment Spec In Lab Enrique Chua MD CHEMISTRY ORDERABLES Performing Organization Address [facility] Co de Phone Number [facility] [place] [address] * (ABNORMAL) Phosphorus (05/08/2023 11:38 AM EDT) Phosphorus 4.7(H) 2.5 - 4.5 mg/dL [facility] Blood 05/08/2023 11:3 8 AM EDT 05/08/2023 11:44 AM EDT Narrative Resulting Agency Comment Spec In Lab Enrique Chua MD CHEMISTRY ORDERABLES Performing Organization Address [facility] Co de Phone Number [facility] [place] [address] * Magnesium (05/08/2023 11:38 AM EDT) Magnesium 0.76 0.69 - 1.07 mmol/L [facility] Blood 05/08/2023 11:3 8 AM EDT 05/08/2023 11:44 AM EDT Narrative Resulting Agency Comment Spec In Lab Enrique Chua MD CHEMISTRY ORDERABLES [facility] [place] [address] * (ABNORMAL) Basic Metabolic Panel (non-fasting) (05/08/2023 11:38 AM EDT) Glucose Lvl 97 65 - 199 mg/dL [facility] Comment:Diabetes: >=200 mg/d L plus symptoms BUN 27(H) 8 - 18 mg/dL [facility] Creatinine 1.02 0.70 - 1.20 mg/dL [facility] Sodium 139 135 - 145 mmol/L [facility] Potassium 4.2 3.5 - 5.0 mmol/L [facility] Comment: Please note: ??Patients with WBC >100,000 may have falsely elevated Potassium levels. ??For accurate Potassium quantification in these patients send serum separator tube (gold top) for subsequent determinations. ??Contact the Clinical Chemistry Laboratory if there are any questions. Chloride 105 98 - 107 mmol/L [facility] CO2 20(L) 22 - 31 mmol/L [facility] Anion Gap 14 5 - 15 mmol/L [facility] Calcium 9.4 8.5 - 10.5 mg/dL [facility] Estimated GFR 60 >=60 mL/min/1. 73 m?? [facility] [...] Lab Enrique Chua MD CHEMISTRY ORDERABLES [facility] [address] * ECHO COMPLETE (05/08/2023 11:02 AM EDT) EF 25 HEART[facility] SYSTEM Anatomical Region Laterality Modality Cardiac Other 05/08/2023 10:0 3 AM EDT Narrative 05/08/2023 11:51 AM EDT ? Echocardiogram Report Name: PURNIMA THACKER ?Study Date: 05/08/2023 10:03 AMBP: 92/64 mmHg ? Patient Location: [facility]^CV29^A : 1955 ? Height: 155 cm ? Account: [id number] Age: 67 yrs ? Weight: 78 kg Gender: Female ?BSA: 1.8 m2 Ordering Physician: ENRIQUE CHUA Referring Physician: MARIO ALBERTO CHIN Performed By: CHUCKIE Canchola Reason For Study: SAVR Stenosis Exam Location: [facility]. Interpretation Summary -Left ventricle is severely dilated [...] worsening stenosis. Mitral regurgitation is similar. Procedure Complete-[id number]. Satisfactory quality. There is normal sinus rhythm. [...] Study Date: 0:03 AMBP: 92/64 mmHg Patient Location:[facility]^CV29^A : 1955 Height: 155 cm Account: [id number] Age: 67 yrs Weight: 78 kg Gender: Female BSA: 1.8 m2 Ordering Physician: ENRIQUE CHUA Referring Physician: MARIO ALBERTO CHIN Performed By: CHUCKIE Canchola Reason For Study: SAVR Stenosis Exam Location: [facility]. Interpretation Summary -Left ventricle is severely dilated [...] suggestsworsening stenosis. Mitral regurgitation is similar. Procedure Complete-[id number]. Satisfactory quality. There is normal sinus rhythm. [...] AM EDT) Heparin UFH Level 0.54 IU/mL [facility] Comment: Heparin (anti-Xa) levels should [...] Lab Enrique Chua MD HEMATOLOGY ORDERABLE S [facility] [address] documented in this encounter Visit Diagnoses Diagnosis S/P TAVR (transcatheter aortic valve replacement)- Primary Aortic valve stenosis, etiology of cardiac valve disease unspecified Heart failure with reduced ejection fraction due to heart valve disease Mild coronary artery disease by [facility] 11/09/2022 Mixed connective tissue disease Other [...] ejection fraction Mild coronary artery disease by [facility] 11/09/2022 Stenosis of prosthetic aortic valve [...] VALDO) 1619 (Given - Provider: Kia Gallego, VALDO) [...] OPEN, Routine 0827 (Given - Provider: Kia Gallego, VALDO) ticagrelor (Brilinta) tablet 90 mg 90 mg, [...] post-op day 1 in the AM Give MD if unable to take PO, Routine Group [...] Routine documented in this encounter Care Teams Process Design Engineer Relationship Specialty Start Date End Date Magdalena Acosta MD [address] [place] [address] PCP - General Family Medicine 02/05/23 documented as of this encounter
--- OUTSIDE RECORDS SUMMARY | 2024-03-02 13:59 | XMS_ITS | Encounter Summary ---
[facility] Organization [facility] [place] [address] Care Team Providers Care Care Partner Name Role Phone Deborah Quiroga APRN Primary Care Provider [phone] Encounter Details Date Type Department Care Team [...] 11:30 AM EST Office Visit [place] [address] [facility] [place] [address] 03/01/2025 4:15 PM EDT Office Visit Dermatology at [address] [place] [address] Marek Bonilla MD [address] [facility] [address], [place] [address] documented as of this encounter Visit Diagnoses Not on filedocumented in this encounter Care Teams Care Partner Relationship Specialty Start Date End Date Deborah Quiroga APRN PCP - General Family Medicine 03/24/16 02/04/23 documented as of this encounter
--- OUTSIDE RECORDS SUMMARY | 2024-03-02 13:59 | XMS_ITS | Encounter Summary ---
[place] [address] Care Team Providers Care Casino Floor Runner Name Role Phone Magdalena Acosta MD Primary Care Provider [phone] Reason for Visit * Reason Comments Annual Exam Encounter Details Date Type Department Care Team (Late st Contact Info) Description 02/05/2023 2:30 PM EDT Office Visit Dermatology at [address] [address] Marek Bonilla MD [address] [facility], [facility] [place] [address] Rosacea; Ocular rosacea; Nevus Social History Tobacco [...] cutaneous and ocular 2. 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 that she had corneal tears from her [...] 11:30 AM EST Office [place] [address] Magdalena Peralta MD [facility] [address] [place] [address] 03/01/2025 4:15 PM EDT Office Visit Dermatology at [place] [address] [facility] [place] [address] Marek Bonilla MD [address] [facility], [place] [address] documented as of this encounter Visit Diagnoses Diagnosis Rosacea Ocular rosacea Rosacea Nevus Benign neoplasm of skin, site unspecified documented in this encounter Care Teams Casino Floor Runner Relationship Specialty Start Date End Date Magdalena Acosta MD [address] [place] [address] PCP - General Family Medicine 02/05/23 documented as of this encounter
--- OUTSIDE RECORDS SUMMARY | 2024-03-02 13:59 | XMS_ITS | Encounter Summary ---
Author Organization [place] [address] Care Team Providers Care Residential Supervisor Name Role Phone Magdalena Acosta MD Primary Care Provider [phone] Reason for Referral * Consultation (Routine) - Closed Specialty Diagnoses / Procedures Referred By Contac t Referred To Contact Rheumatology Diagnoses Weakness Kyra Haas MD [facility] [address] [place] [address] [facility] [address] [place] [id number] Referral ID Status Reason Start Date Expiration Date V isits Requested Visits Authorized [id number] Closed Consult, Test & Treat PCP Updated and/or Approved 02/25/2023 02/25/2024 6 6 Encounter Details Date Type Department Care Team (Late st Contact Info) Description 02/25/2023 Transcribe Orders eDH Incoming Referrals [phone] Magdalena Acosta MD [address] [place] [address] Weakness Social History Tobacco Use [...] 11:30 AM EST Office [place] [address] Magdalena Peralta MD [facility] [place] [address] 03/01/2025 4:15 PM EDT Office Visit Dermatology at [place] [address] [facility] [place] [address] Marek Bonilla MD [address], [place] [address] Scheduled Referrals Name Type Priority Associated Diagnoses Order Schedule Referral to Rheumatology Outpatient Referral Routine Weakness Ordered: 02/25/2023 documented as of this encounter Visit Diagnoses Diagnosis Weakness Other malaise and fatigue documented in this encounter Care Teams Residential Supervisor Relationship Specialty Start Date End Date Magdalena Acosta MD [address] [place] [address] PCP - General Family Medicine 02/05/23 documented as of this encounter
--- OUTSIDE RECORDS SUMMARY | 2024-03-02 13:59 | XMS_ITS | Encounter Summary ---
Author Organization [facility] Address [facility] [place] [address] Care Team Providers Care Director Of Premium Seat Sales Name Role Phone Junaid Deborah Shields APRN Primary Care Provider [phone] Encounter Details Date Type Department Care Team (Latest Contact Info) Description 06/22/2022 10:00 AM EST Office [place] [phone] Raymond Loredo MD [facility] [place] [address] Raynaud's phenomenon without gangrene; Positive FRANCISCO (antinuclear [...] can be done locally or here at [facility] that the current time is not particularly [...] for surgery by Dr. Rogers here at [facility]. In addition to painful dysesthesias in her [...] over radiocarpal or ulnocarpal joints. Hands: Normal mechanical engineer and claw. SJC/TJC 0/0. Knees: Decreased flexion [...] 11:30 AM EST Office [place] [address] Magdalena Peralta MD [facility] [place] [address] 03/01/2025 4:15 PM EDT Office Visit Dermatology at [place] [address] [facility] [place] [address] Marek Bonilla MD [address], [place] [address] documented as of this encounter Visit Diagnoses Diagnosis Raynaud's phenomenon without gangrene Positive FRANCISCO (antinuclear antibody) Other and unspecified nonspecific immunological findings Primary osteoarthritis involving multiple joints Cervical disc disorder at C6-C7 level with radiculopathy documented in this encounter Care Teams Director Of Premium Seat Sales Relationship Specialty Start Date End Date Deborah Quiroga APRN PCP - General Family Medicine 03/24/16 02/04/23 documented as of this encounter
--- OUTSIDE RECORDS SUMMARY | 2024-03-02 13:59 | XMS_ITS | Encounter Summary ---
Author Organization [facility] Erika ló[place] [address] Care Team Providers Care Chip Drier Name Role Phone Deborah Quiroga APRN Primary Care Provider [phone] Encounter Details Date Type Department Care Team (Late st Contact Info) Description 06/05/2021 Interpretation Only [address] [address] Deborah Quiroga APRN [address] [address] Social History Tobacco Use Types Packs/Day Years [...] 11:30 AM EST Office [place] [address] Magdalena Peralta MD [facility] [place] [address] 03/01/2025 4:15 PM EDT Office Visit Dermatology at [place] [address] [facility] [place] [address] Marek Bonilla MD [address], [place] [address] documented as of this encounter Procedures Procedure Name Priority Date/Time Associated Diagnosis Comments DXA CENTRAL SPINE, HIP, AND/OR WHOLE BODY (GENERIC) Routine 06/05/2021 11:58 AM EDT documented in this encounter Results * DXA Central Spine, Hip, and/or Whole Body (Generic) (06/05/2021 11:58 AM EDT) PT CLASS O RAD ADMITDTTM RAD PT RAD INFO [id number]^E VERETT^DEBORAH ^E RAD EXAM DESC XDXAC^DEXA SCAN [...] who have questions please contact the health wound care coordinator that requested your imaging first. ? Narrative [...] patients who have questions please contactthe health wound care coordinator that requested your imaging first. Electronically signed by: Rocale Villatoro MD, [facility]([phone]), at 06/05/2021 12:00 PM Deborah Quiroga APRN IMGerman DEXA ORDERABLES documented in this encounter Visit Diagnoses Not on filedocumented in this encounter Care Teams Chip Drier Relationship Specialty Start Date End Date Deborah Quiroga APRN PCP - General Family Medicine 03/24/16 02/04/23 documented as of this encounter
--- OUTSIDE RECORDS SUMMARY | 2024-03-02 13:59 | XMS_ITS | Encounter Summary ---
Author Organization [facility] [place] [address] Care Team Providers Care Solar Site Assessment Specialist Name Role Phone Magdalena Acosta MD Primary Care Provider [phone] Encounter Details Date Type Department Care Team [...] 11:30 AM EST Office [place] [address] Magdalena Peralta MD [facility] [place] [address] 03/01/2025 4:15 PM EDT Office Visit Dermatology at [address] [place] [address] Marek Bonilla MD [address] [facility], [place] [address] documented as of this encounter Visit Diagnoses Not on filedocumented in this encounter Care Teams Solar Site Assessment Specialist Relationship Specialty Start Date End Date Magdalena Acosta MD [address] [place] [address] PCP - General Family Medicine 02/05/23 documented as of this encounter
--- OUTSIDE RECORDS SUMMARY | 2024-03-02 13:59 | XMS_ITS | Encounter Summary ---
Author Organization [facility] Address [facility] [place] [address] Care Team Providers Care Wallpaperer Helper Name Role Phone Magdalena Acosta MD Primary Care Provider [phone] Encounter Details Date Type Department Care Team (Late st Contact Info) Description 03/29/2023 Orders Only Cardiology at [address] [phone] Ranjan Delgado MD [facility] [place] [address] Severe aortic stenosis (Primary Dx) Social History [...] 11:30 AM EST Office [place] [address] Magdalena Peralta MD [facility] [place] [address] 03/01/2025 4:15 PM EDT Office Visit Dermatology at [place] [address] [place] [phone] Marek Bonilla MD [address], [place] [address] Scheduled Orders Name Type Priority Associated Diagnoses [...] disorders documented in this encounter Care Teams Wallpaperer Helper Relationship Specialty Start Date End Date Magdalena Acosta MD [address] [place] [address] PCP - General Family Medicine 02/05/23 documented as of this encounter
--- OUTSIDE RECORDS SUMMARY | 2024-03-02 13:59 | XMS_ITS | Encounter Summary ---
Author Organization [facility] [place] [address] Care Team Providers Care Mandarin Speaking Nanny Name Role Phone Deborah Quiroga APRN Primary Care Provider [phone] Encounter Details Date Type Department Care Team [...] 11:30 AM EST Office [place] [address] Magdalena Peralta MD [facility] [place] [address] 03/01/2025 4:15 PM EDT Office Visit Dermatology at [address] [place] [address] Marek Bonilla MD [address], [place] [address] documented as of this encounter Visit Diagnoses Not on filedocumented in this encounter Care Teams Mandarin Speaking Nanny Relationship Specialty Start Date End Date Deborah Quiroga APRN PCP - General Family Medicine 03/24/16 02/04/23 documented as of this encounter
--- OUTSIDE RECORDS SUMMARY | 2024-03-02 13:59 | XMS_ITS | Encounter Summary ---
Author Organization [facility] [place] [address] Care Team Providers Care Wagon Person Name Role Phone Deborah Quiroga APRN Primary Care Provider [phone] Encounter Details Date Type Department Care Team (Latest Contact Info) Description 07/03/2022 12:28 PM EST - 07/03/2022 1:35 PM EST Hospital Encounter Hematology [place] [address] Chronic idiopathic neutropenia Discharge Disposition: Home Social [...] 11:30 AM EST Office [place] [address] Magdalena Peralta MD [facility] [place] [address] 03/01/2025 4:15 PM EDT Office Visit Dermatology at [place] [address] [facility] [place] [address] Marek Bonilla MD [address] [facility] [facility] [address] [address], [place] [address] documented as of this encounter Procedures Procedure Name Priority Date/Time Associated Diagnosis Comments HEMOGRAM Routine 07/03/2022 12:40 PM EST Chronic idiopathic neutropenia DIFFERENTIAL, AUTOMATED Routine 07/03/2022 12:40 PM EST Chronic idiopathic neutropenia HC CBC,PLT & AUTO DIFF Routine 12:40 PM EST Chronic idiopathic neutropenia COMPREHENSIVE METABOLIC PANEL (NON-FASTING) Routine 07/03/2022 12:40 PM EST Chronic idiopathic neutropenia documented in this encounter Results * (ABNORMAL) Differential, Automated (07/03/2022 12:40 PM EST) Neutrophils % 72.9 % [facility] Neutr Abs (ANC) 2.61 1.70 - 6.10 x10(3)/ L [facility] Lymphocytes % 18.4 % [facility] Lymphocytes Abs 0.7(L) 0.9 - 3.2 x10(3)/[facility] LABORATORY Monocytes % 8.4 % [facility] Monocyte Abs 0.3 0.3 - 0.9 x10(3)/[facility] LABORATORY Eosinophils % 0.0 % [facility] Eosinophils Abs 0.0 0.0 - 0.4 x10(3)/[facility] LABORATORY Basophils % 0.3 % [facility] Basophils Abs 0.0 0.0 - 0.1 x10(3)/[facility] LABORATORY Immature Gran % 0.00 % [facility] Comment: Immature granulocytes(IG's)percentage and absolute count will include metamyelocytes, myelocytes, and promyelocytes. Blood smears from CBCs yielding IG's will be scanned manually for concordance. If this scan disagrees with the automated IG or if promyelocytes are noted, a manual differential will be performed. Amanda Gran Abs 0.00 0.00 - 0.04 x10(3)/ L [facility] Blood 07/03/2022 12:4 0 PM EST 07/03/2022 1:03 PM EST Narrative Resulting Agency Comment Spec In Lab Markel Borjas MD HEMATOLOGY ORDERAB LES [facility] [place] [address] * (ABNORMAL) Hemogram (07/03/2022 12:40 PM EST) Pathologist [facility] WBC 3.6(L) 4.0 - 9.5 x10(3)/[facility] LABORATORY RBC 3.61(L) 4.00 - 5.21 x10(6)/[facility] LABORATORY Hemoglobin 11.7 11.7 - 15.5 g/dL [facility] Hematocrit 34.5(L) 35.7 - 45.8 % [facility] MCV 95.6(H) 82.6 - 94.4 fL [facility] MCH 32.4(H) 27.1 - 32.0 pg [facility] MCHC 33.9 31.7 - 35.0 g/dL [facility] Platelets 171 145 - 357 x10(3)/[facility] LABORATORY RDWSD 40.5 37.0 - 46.0 [facility] LAB[facility] RDWCV 11.5 11.5 - 14.1 % [facility] MPV 9.2 7.6 - 12.9 fL [facility] nRBC % Auto 0.0 % [facility] nRBC Abs Auto 0.000 0.000 - 0.000 x10(3)/[facility] Blood 07/03/2022 12:4 0 PM EST 07/03/2022 1:03 PM EST Narrative Resulting Agency Comment Spec In Lab Markel Borjas MD HEMATOLOGY ORDERAB LES [facility] [place] [address] * (ABNORMAL) Comprehensive metabolic panel (non-fasting) (07/03/2022 12:40 PM EST) Pathologist [facility] Glucose Lvl 92 65 - 199 mg/dL [facility] Comment:Diabetes: >=200 mg/d L plus symptoms BUN 22(H) 8 - 18 mg/dL [facility] Creatinine 0.80 0.70 - 1.20 mg/dL [facility] Sodium 139 135 - 145 mmol/L [facility] [...] Chloride 105 98 - 107 mmol/L [facility] CO2 23 22 - 31 mmol/L [facility] Anion Gap 11 5 - 15 mmol/L [facility] Calcium 10.1 8.5 - 10.5 mg/dL [facility] Total Protein 7.6 6.1 - 8.0 g/dL [facility] Albumin 4.1 3.2 - 5.2 g/dL [facility] AST 25 0 - 30 unit/L [facility] ALT 14 0 - 30 unit/L [facility] Alk Phos 80 35 - 105 unit/L [facility] Total Bilirubin 0.3 0.2 - 1.3 mg/dL [facility] Estimated GFR 81 >=60 mL/min/1. 73 m?? [facility] Comment: This patient's estimated GFR [...] Markel Borjas MD CHEMISTRY ORDERABL ES [facility] [place] [address] documented in this encounter Visit Diagnoses Diagnosis Chronic idiopathic neutropenia Other neutropenia documented in this encounter Care Teams Wagon Person Relationship Specialty Start Date End Date Deborah Quiroga APRN PCP - General Family Medicine 03/24/16 02/04/23 documented as of this encounter
--- OUTSIDE RECORDS SUMMARY | 2024-03-02 13:59 | XMS_ITS | Encounter Summary ---
Author Organization [facility] [place] [address] Care Team Providers Care Experimental Mechanic Electrical Name Role Phone Deborah Quiroga ANURAG Primary Care Provider [phone] Encounter Details Date Type Department Care Team (Late st Contact Info) Description 11/02/2022 Orders Only [place] [phone] Emily Lyons PA [facility] [place] [address] Aortic valve stenosis, etiology of cardiac valve [...] 11:30 AM EST Office [place] [address] Magdalena Peralta MD [facility] [address] 03/01/2025 4:15 PM EDT Office Visit Dermatology at [address] [phone] Marek Bonilla MD [address], [place] [address] documented as of this encounter Visit Diagnoses Diagnosis Aortic valve stenosis, etiology of cardiac valve disease unspecified documented in this encounter Care Teams Experimental Mechanic Electrical Relationship Specialty Start Date End Date Deborah Quiroga APRN PCP - General Family Medicine 03/24/16 02/04/23 documented as of this encounter
--- OUTSIDE RECORDS SUMMARY | 2024-03-02 13:59 | XMS_ITS | Encounter Summary ---
Author Organization [facility] Address [facility] [place] [address] Care Team Providers Care Morning Show Producer Name Role Phone Deborah Quiroga ANURAG Primary Care Provider [phone] Encounter Details Date Type Department Care Team (Late st Contact Info) Description 01/14/2023 Refill Dermatology at [address] [address] Lupe Connor RN Social History [...] She would like the medication called into [facility] in [facility]. Discussed with Dr. Bonilla and he has approved refill of the Doxycycline 50 mg take one capsule by mouth daily in the evenings dispense 30 capsules with 2 refills. Patient notified. documented in this encounter Plan of Treatment Upcoming Encounters Date Type Department Care Team (Late st Contact Info) Description 06/05/2024 11:30 AM EST Office [place] [address] Magdalena Peralta MD [facility] [place] [address] 03/01/2025 4:15 PM EDT Office Visit Dermatology at [place] [address] [facility] [place] [address] Marek Bonilla MD [address], [address] [address] documented as of this encounter Visit Diagnoses Not on filedocumented in this encounter Care Teams Morning Show Producer Relationship Specialty Start Date End Date Deborah Quiroga APRN PCP - General Family Medicine 03/24/16 02/04/23 documented as of this encounter
--- OUTSIDE RECORDS SUMMARY | 2024-03-02 13:59 | XMS_ITS | Encounter Summary ---
Author Organization [facility] Address [facility] [place] [address] Care Team Providers Care Restorative Coordinator Name Role Phone Magdalena Acosta MD Primary Care Provider [phone] Encounter Details Date Type Department Care Team (Late st Contact Info) Description 02/17/2023 2:00 PM EDT Office [place] [address] Alirio Esparza MD [facility] [place] [address] Aortic valve stenosis, etiology of cardiac valve [...] 11:30 AM EST Office [place] [address] Magdalena Peralta MD [facility] [place] [address] 03/01/2025 4:15 PM EDT Office Visit Dermatology at [place] [address] [facility] [place] [address] Marek Bonilla MD [address] [facility], [place] [address] documented as of this encounter Visit Diagnoses Diagnosis Aortic valve stenosis, etiology of cardiac valve disease unspecified documented in this encounter Care Teams Restorative Coordinator Relationship Specialty Start Date End Date Magdalena Acosta MD [address] [place] [address] PCP - General Family Medicine 02/05/23 documented as of this encounter
--- OUTSIDE RECORDS SUMMARY | 2024-03-02 13:59 | XMS_ITS | Encounter Summary ---
Author Organization [facility] [place] [address] Care Team Providers Care Director Content Marketing Name Role Phone Deborah Quiroga APRN Primary Care Provider [phone] Encounter Details Date Type Department Care Team (Late st Contact Info) Description 11/09/2022 11:30 AM EDT - 11/09/2022 12:30 PM EDT [place] [address] Nitesh Escobedo MD [facility] [address] CARDIAC CATHETERIZATION Social History Tobacco Use Types [...] Center 02/05/2023 2:30 PM Marek Bonilla MD [facility] New Medications to be Picked Up None For questions regarding this document or issues relating to this hospitalization on the Medical Service, please contact your inpatient physician through the [facility] Head Piece Assembler . Issues afterhours and on weekends will be handled by the Hospitalist staff on-call. * Attachments The following attachments cannot be sent through Care Everywhere. * Coronary Angiogram: Post-op (Swedish) * Right Heart Catheterization: Pulmonary Artery Catheterization: Post-op (Swedish) documented in this encounter Medications at Time of Discharge Medication Sig Dispensed Refills Start Date End Date nystatin (MYCOSTATIN) 100,000 unit/gram Powder Apply topically 2 times daily as needed. 10/22/2022 Pro[employer] Business SolutionsTouch Verio test strips Strip USE DAILY 01/03/2022 Pro[employer] Business SolutionsToCalix Delica Plus Lancet 33 gauge Misc USE [...] MD - 11/09/2022 11:20 AM EDT . [facility] Interventional Cardiology Adult Pre-Procedure H&P Update: Cardiac Catheterization Purnima Thacker [id number] 1955 Chief Complaint: BONILLA HPI: Purnima Thacker [...] Marrero MD Interventional Cardiology 11/09/22 11:43 AM [facility] Pager: [phone] documented in this encounter Plan of Treatment Upcoming Encounters Date Type Department Care Team (Late st Contact Info) Description 06/05/2024 11:30 AM EST Office Visit [place] [address] Magdalena Peralta MD [facility] [place] [address] 03/01/2025 4:15 PM EDT Office Visit Dermatology at [place] [address] [place] [address] Marek Bonilla MD [address], [place] [address] documented as of this encounter Procedures Procedure Name Priority Date/Time Associated Diagnosis Comments CARDIAC CATHETERIZATION Routine 11/10/19 23 1:05 PM EDT Aortic valve stenosis, etiology of cardiac valve disease unspecified Cath Plmt Left Heart Cath & Arts W/Inj & Angio Img S&I ([id number]) 11/09/2022 11:51 AM EDT Aortic valve stenosis, etiology of cardiac valve disease unspecified EKG 12-LEAD Routine 11/09/2022 11:17 AM EDT Aortic valve stenosis, etiology of cardiac valve disease unspecified documented in this encounter Results * CARDIAC CATHETERIZATION (11/09/2022 1:05 PM EDT) Anatomical Region Laterality Modality Other Narrative 11/09/2022 2:01 PM EDT ?[facility] ? Cardiac Catheterization/Intervention Report ? Patient Name: Kirstie, Purnima M. ? Procedure Date: 11/09/2022 ? A #: [id number] ? Primary Physician: Nitesh Escobedo ? Case #: [id number] ? File Name: [id number] ? Catheterization Order Number: [id number] ? [facility] ? Final Report [place], [place] ? Patient Name: ? Purnima M. Kirstie ? ID#: ?[id number] ? : ?1955 ? Procedure Date: ? [...] was designated as ASA Class III. [facility] clinical frailty scale ?is 4: Vulnerable. [...] (Bezet) 457 ms MUSE SYSTEM Calculated P [place] 44 degrees MUSE SYSTEM Calculated R [place] 33 degrees MUSE SYSTEM Calculated T [place] 30 degrees MUSE SYSTEM INTERPRETATION Sinus rhythm Occasional Premature ventricular complexes Otherwise normal ECG When compared with ECG of 21-SEP-2016 12:26, Premature ventricular complexes are now Present [place] interval has decreased Nonspecific T wave abnormality has replaced inverted T waves in Inferior leads I personally reviewed the tracing and edited the fellows interpretation Confirmed by fellow MD Anitha, Carissa ([id number]) on 11/09/2022 6:17:28 PM Confirmed by Elsa [...] MD) documented in this encounter Care Teams Director Content Marketing Relationship Specialty Start Date End Date Deborah Quiroga, SQL DATABASE PROGRAMMER PCP - General Family Medicine 03/24/16 02/04/23 documented as of this encounter
--- OUTSIDE RECORDS SUMMARY | 2024-03-02 13:59 | XMS_ITS | Encounter Summary ---
[place] [address] Care Team Providers Care Rnp Name Role Phone Deborah Quiroga APRN Primary Care Provider [phone] Reason for Referral * Consultation (Routine) - Closed Specialty Diagnoses / Procedures Referred By Contac t Referred To Contact Rheumatology Diagnoses Positive FRANCISCO (antinuclear antibody) Arthralgia, unspecified joint Sandy Wu APRN [address] [place] [address] [facility] Rheumatology [address] [place] [phone] Referral ID Status Reason Start Date Expiration Date V isits Requested Visits Authorized [id number] Closed Consult, Test & Treat PCP Updated and/or Approved 01/01/2022 01/01/2023 6 6 Encounter Details Date Type Department Care Team (Latest Contact Info) Description 01/01/2022 Transcribe Orders eDH Incoming Referrals [phone] Sandy Wu APRN [address] [place], [place] [id number] Positive FRANCISCO (antinuclear antibody); Arthralgia, unspecified joint [...] 11:30 AM EST Office [place] [address] Magdalena Peralta MD [facility] [place] [address] 03/01/2025 4:15 PM EDT Office Visit Dermatology at [place] [address] [place] [address] Marek Bonilla MD [address], [place] Katherine [place] [address] Scheduled Referrals Name Type Priority Associated Diagnoses Orde r Schedule Referral to Rheumatology Outpatient Referral Routine Positive FRANCISCO (antinuclear antibody) Arthralgia, unspecified joint Ordered: 01/01/2022 documented as of this encounter Visit Diagnoses Diagnosis Positive FRANCISCO (antinuclear antibody) Other and unspecified nonspecific immunological findings Arthralgia, unspecified joint documented in this encounter Care Teams Rnp Relationship Specialty Start Date End Date Deborah Quiroga APRN PCP - General Family Medicine 03/24/16 02/04/23 documented as of this encounter
--- OUTSIDE RECORDS SUMMARY | 2024-03-02 13:59 | XMS_ITS | Encounter Summary ---
Author Organization [facility] [place] [address] Care Team Providers Care Loan Documentation Specialist Name Role Phone Magdalena Acosta MD Primary Care Provider [phone] Encounter Details Date Type Department Care Team [...] 11:30 AM EST Office [place] [address] Magdalena Peralta MD [facility] [place] [address] 03/01/2025 4:15 PM EDT Office Visit Dermatology at [address] [place] [address] Marek Bonilla MD [address] [facility], [place] [address] documented as of this encounter Visit Diagnoses Not on filedocumented in this encounter Care Teams Loan Documentation Specialist Relationship Specialty Start Date End Date Magdalena Acosta MD [address] [place] [address] PCP - General Family Medicine 02/05/23 documented as of this encounter
--- OUTSIDE RECORDS SUMMARY | 2024-03-02 13:59 | XMS_ITS | Encounter Summary ---
Author Organization [place] [address] Care Team Providers Care Radiology Ct Technologist Name Role Phone Junaid Deborah Shields APRN Primary Care Provider [phone] Encounter Details Date Type Department Care Team (Latest Contact Info) Description 11/09/2022 10:37 AM EDT - 11/09/2022 4:53 PM EDT Hospital Encounter [place] [address] Nitesh Escobedo MD [facility] [place] [address] Aortic valve stenosis, etiology of cardiac valve [...] Center 02/05/2023 2:30 PM Marek Bonilla MD [facility] New Medications to be Picked Up None For questions regarding this document or issues relating to this hospitalization on the Medical Service, please contact your inpatient physician through the [facility] Gantry Rigger . Issues afterhours and on weekends will be handled by the Hospitalist staff on-call. * Attachments The following attachments cannot be sent through Care Everywhere. * Coronary Angiogram: Post-op (Chadian) * Right Heart Catheterization: Pulmonary Artery Catheterization: Post-op (Chadian) documented in this encounter Medications at Time [...] MD - 11/09/2022 11:[address] [facility] Interventional Cardiology Adult Pre-Procedure H&P Update: Cardiac Catheterization Purnima Thacker [id number] 1955 Chief Complaint: BONILLA HPI: Purnima Thacker [...] Marrero MD Interventional Cardiology 11/09/22 11:[address] [facility] Pager: [phone] documented in this encounter Plan of Treatment Upcoming Encounters Date Type Department Care Team (Late st Contact Info) Description 06/05/2024 11:30 AM EST Office [place] [address] Magdalena Peralta MD [facility] [place] [address] 03/01/2025 4:15 PM EDT Office Visit Dermatology at [place] [address] [place] [address] Marek Bonilla MD [address], [place] [address] documented as of this encounter Procedures Procedure Name Priority Date/Time Associated Diagnosis Comments CARDIAC CATHETERIZATION Routine 11/10/19 1:05 PM EDT Aortic valve stenosis, etiology of cardiac valve disease unspecified Cath Plmt Left Heart Cath & Arts W/Inj & Angio Img S&I ([id number]) 11/09/2022 11:51 AM EDT Aortic valve stenosis, etiology of cardiac valve disease unspecified EKG 12-LEAD Routine 11/09/2022 11:17 AM EDT Aortic valve stenosis, etiology of cardiac valve disease unspecified documented in this encounter Results * CARDIAC CATHETERIZATION (11/09/2022 1:05 PM EDT) Anatomical Region Laterality Modality Other Narrative 11/09/2022 2:01 PM EDT ?[facility] ? Cardiac Catheterization/Intervention Report ? Patient Name: Purnima Thacker. ? Procedure Date: 11/09/2022 ? A #: [id number] ? Primary Physician: Nitesh Escobedo ? Case #: [id number] ? File Name: [id number] ? Catheterization Order Number: [id number] ? [facility] ? Final Report [place], [place] ? Patient Name: ? Purnima M. Kirstie ? ID#: ?[id number] ? : ?1955 ? Procedure Date: ? [...] (Bezet) 457 ms MUSE SYSTEM Calculated P [place] 44 degrees MUSE SYSTEM Calculated R [place] 33 degrees MUSE SYSTEM Calculated T [place] 30 degrees MUSE SYSTEM INTERPRETATION Sinus rhythm Occasional Premature ventricular complexes Otherwise normal ECG When compared with ECG of 21-SEP-2016 12:26, Premature ventricular complexes are now Present [place] interval has decreased Nonspecific T wave abnormality has replaced inverted T waves in Inferior leads I personally reviewed the tracing and edited the fellows interpretation Confirmed by fellow MD Anitha, [facility] ([id number]) on 11/09/2022 6:17:28 PM Confirmed by Elsa [...] MD) documented in this encounter Care Teams Radiology Ct Technologist Relationship Specialty Start Date End Date Deborah Quiroga, ANURAG PCP - General Family Medicine 03/24/16 02/04/23 documented as of this encounter
--- OUTSIDE RECORDS SUMMARY | 2024-03-02 13:59 | XMS_ITS | Encounter Summary ---
Author Organization [facility] Address [facility] Erika [facility] [place] [address] Care Team Providers Care Paper Cone Maker Name Role Phone Deborah Quiroga APRN Primary Care Provider [phone] Reason for Visit * Consultation (Routine) - Closed Specialty Diagnoses / Procedures Referred By Contkrystle t Referred To Contact Rheumatology Diagnoses Positive FRANCISCO (antinuclear antibody) Arthralgia, unspecified joint Sandy Wu APRN [address] [place] [address] [facility] [address] [place] [address] Referral ID Status Reason Start Date Expiration Date V isits Requested Visits Authorized [id number] Closed Consult, Test & Treat PCP Updated and/or Approved 01/01/2022 01/01/2023 6 6 Encounter Details Date Type Department Care Team (Latest Contact Info) Description 01/20/2022 10:00 AM EDT Office [place] [address] Raymond Loredo MD [facility] [place] [address] Rosacea; Raynaud's phenomenon without gangrene; [...] can be done locally or here at [facility] documented in this encounter Progress Notes * [...] over radiocarpal or ulnocarpal joints. Hands: Normal director pharmacy services and claw. SJC/TJC 0/0. Hips: Full motion, [...] done locally or here at [facility] that the current time is not particularly interested it seems Raymond Loredo MD documented in this encounter Plan of Treatment Upcoming Encounters Date Type Department Care Team (Late st Contact Info) Description 06/05/2024 11:30 AM EST Office [place] [address] Magdalena Peralta MD [facility] [place] [address] 03/01/2025 4:15 PM EDT Office Visit Dermatology at [address] [phone] Marek Bonilla MD [address] [facility] [place] [address] Scheduled Referrals Name Type Priority Associated Diagnoses [...] syndrome documented in this encounter Care Teams Paper Cone Maker Relationship Specialty Start Date End Date Deborah Quiroga APRN PCP - General Family Medicine 03/24/16 02/04/23 documented as of this encounter
--- OUTSIDE RECORDS SUMMARY | 2024-03-02 13:59 | XMS_ITS | Encounter Summary ---
[place] [address] Care Team Providers Care Staff Cytotechnologist Name Role Phone Magdalena Acosta MD Primary Care Provider [phone] Reason for Visit * Reason Comments Suture / Staple Removal Encounter Details Date Type Department Care Team (Late st Contact Info) Description 02/16/2023 10:00 AM EDT Office Visit Dermatology at [place] [address] [facility] [place] [address] Marek Bonilla MD [address] [facility] [address] A DERMATOLOGY [place], [place] [address] Visit for suture removal Social History Tobacco [...] 11:30 AM EST [place] [address] Magdalena Peralta MD [facility] [place] [address] 03/01/2025 4:15 PM EDT Office Visit Dermatology at [place] [address] [place] [address] Marek Bonilla MD [address] [facility] [address], [place] [address] documented as of this encounter Visit Diagnoses Diagnosis Visit for suture removal Encounter for removal of sutures documented in this encounter Care Teams Staff Cytotechnologist Relationship Specialty Start Date End Date Magdalena Acosta MD [address] [place] [address] PCP - General Family Medicine 02/05/23 documented as of this encounter
--- OUTSIDE RECORDS SUMMARY | 2024-03-02 13:59 | XMS_ITS | Encounter Summary ---
Author Organization [facility] [place] [address] Care Team Providers Care Extract Wringer Name Role Phone Deborah Quiroga APRN Primary Care Provider [phone] Encounter Details Date Type Department Care Team (Late st Contact Info) Description 06/08/2022 Ancillary Procedure [place] [address] Deborah Quiroga MOLD INJECTOR [address] [facility] [address] [place], [place] [address] Social History Tobacco Use Types Packs/Day Years [...] EST Office [place] [address] Magdalena Peralta MD [facility] [place] [address] 03/01/2025 4:15 PM EDT Office Visit Dermatology at [address] [place] [address] Marek Bonilla MD [address] [place] [address] documented as of this encounter Procedures Procedure Name Priority Date/Time Associated Diagnosis Comments FILM LIBRARY STORAGE ONLY DX SPINE Routine 06/08/2022 12:00 AM EST documented in this encounter Results * Film Library- Storage Only DX Spine (06/08/2022 12:00 AM EST) Narrative [facility] - 06/18/2022 10:57 AM EST This exam is auto-finalizing. It's purpose is for storage only. Deborah Quiroga APRN IMGerman FILM LIBRARY OR DERABLES Performing Organization Address City/State/[facility] Co de Phone Number [place], [place] documented in this encounter Visit Diagnoses Not on filedocumented in this encounter Care Teams Extract Wringer Relationship Specialty Start Date End Date Deborah Quiroga APRN PCP - General Family Medicine 03/24/16 02/04/23 documented as of this encounter
--- OUTSIDE RECORDS SUMMARY | 2024-03-02 13:59 | XMS_ITS | Encounter Summary ---
[place] [address] Care Team Providers Care Die Grinder Name Role Phone Magdalena Acosta MD Primary Care Provider [phone] Reason for Visit * Reason Comments Skin Lesion Encounter Details Date Type Department Care Team (Late st Contact Info) Description 04/20/2023 10:00 AM EDT Office Visit Dermatology at [address] [address] Marek Bonilla MD [address] [facility] [place] [address] Seborrheic keratosis Social History Tobacco Use Types [...] cutaneous and ocular 3. Previously told by legal recruiter that she had corneal tears from her [...] EST Office [place] [address] Magdalena Peralta MD [facility] [place] [address] 03/01/2025 4:15 PM EDT Office Visit Dermatology at [address] [address] Marek Bonilla MD [address] [facility] [place] [address] documented as of this encounter Visit Diagnoses Diagnosis Seborrheic keratosis Other seborrheic keratosis documented in this encounter Care Teams Die Grinder Relationship Specialty Start Date End Date Magdalena Acosta MD [address] [place] [address] PCP - General Family Medicine 02/05/23 documented as of this encounter
--- OUTSIDE RECORDS SUMMARY | 2024-03-02 13:59 | XMS_ITS | Encounter Summary ---
Author Organization [facility] Address [facility] [place] [address] Care Team Providers Care Cone Machine Operator Name Role Phone Magdalena Acosta MD Primary Care Provider [phone] Encounter Details Date Type Department Care Team (Latest Contact Info) Description 03/18/2023 2:30 PM EDT Laboratory Appointment Lab [address] [phone] Positive FRANCISCO (antinuclear antibody) Social History Tobacco [...] 11:30 AM EST Office [place] [address] Magdalena Peralta MD [facility] [place] [address] 03/01/2025 4:15 PM EDT Office Visit Dermatology at [place] [address] [facility] [place] [address] Marek Bonilla MD [address] [facility], [place] [address] documented as of this encounter Procedures Procedure Name Priority Date/Time Associated Diagnosis Comments HC PCH ANATITRE (ANDPATTERN) Routine 03/18/2023 2:14 PM EDT Positive FRANCISCO (antinuclear antibody) HC C-REACTIVE PROTEIN Routine 03/18/2023 2:14 PM EDT Positive FRANCISCO (antinuclear antibody) HC DNA AB DS ([place]) Routine 03/18/2023 2:14 PM EDT Positive FRANCISCO [...] 2:14 PM EDT) Neutrophils % 71.2 % [facility] Neutr Abs (ANC) 2.26 1.70 - 6.10 x10(3)/mc L [facility] Lymphocytes % 18.2 % [facility] Lymphocytes Abs 0.6(L) 0.9 - 3.2 x10(3)/[facility] Monocytes % 9.7 % [facility] Monocyte Abs 0.3 0.3 - 0.9 x10(3)/[facility] Eosinophils % 0.3 % [facility] Eosinophils Abs 0.0 0.0 - 0.4 x10(3)/[facility] Basophils % 0.6 % [facility] Basophils Abs 0.0 0.0 - 0.1 x10(3)/[facility] Immature Gran % 0.00 % [facility] Comment: Immature granulocytes(IG's)percentage and absolute count will include metamyelocytes, myelocytes, and promyelocytes. Blood smears from CBCs yielding IG's will be scanned manually for concordance. If this scan disagrees with the automated IG or if promyelocytes are noted, a manual differential will be performed. Amanda Gran Abs 0.00 0.00 - 0.04 x10(3)/[facility] Blood 03/18/2023 2:14 PM EDT 03/18/2023 2:24 PM EDT Narrative Resulting Agency Comment Spec In Lab Magdalena Peralta MD HEMATOLOGY ORDERABLE S Performing Organization Address City/State/[facility] Co de Phone Number [facility] [place] [address] * (ABNORMAL) Hemogram (03/18/2023 2:14 PM EDT) WBC 3.2(L) 4.0 - 9.5 x10(3)/[facility] LABORATORY RBC 3.44(L) 4.00 - 5.21 x10(6)/[facility] Hemoglobin 11.1(L) 11.7 - 15.5 g/dL [facility] Hematocrit 32.9(L) 35.7 - 45.8 % [facility] MCV 95.6(H) 82.6 - 94.4 fL [facility] MCH 32.3(H) 27.1 - 32.0 pg [facility] MCHC 33.7 31.7 - 35.0 g/dL [facility] Platelets 144(L) 145 - 357 x10(3)/[facility] LABORATORY RDWSD 42.6 37.0 - 46.0 [facility] RDWCV 12.3 11.5 - 14.1 % [facility] MPV 9.4 7.6 - 12.9 [facility] nRBC % Auto 0.0 % [facility] nRBC Abs Auto 0.000 0.000 - 0.000 x10(3)/[facility] Blood 03/18/2023 2:14 PM EDT 03/18/2023 2:24 PM EDT Narrative Resulting Agency Comment Spec In Lab Magdalena Peralta MD HEMATOLOGY ORDERABLE S Performing Organization Address City/[facility]/[place] [address] * (ABNORMAL) Sedimentation rate (03/18/2023 2:14 PM EDT) Sed Rate 68(H) 2 - 39 mm/hr [facility] Comment: Effective July 12, 2019 new capillary photometric technology has resulted in a change in reference ranges. It is recommended that each ESR result be reviewed with its own age appropriate reference range. Blood 03/18/2023 2:14 PM EDT 03/18/2023 2:24 PM EDT Narrative Resulting Agency Comment Spec In Lab Kia Viramontes DO HEMATOLOGY ORDERAB LES Performing Organization Address City/[facility]/ZIP Co de Phone Number [facility] [place] [address] * CRP, acute inflammation (03/18/2023 2:14 PM EDT) CRP 3.0 <=4.9 mg/L [facility] Blood 03/18/2023 2:14 PM EDT 03/18/2023 2:24 PM EDT Narrative Resulting Agency Comment Spec In Lab Kia D Wander DO CHEMISTRY ORDERABL ES [facility] [place] [address] * C3 Complement (03/18/2023 2:14 PM EDT) C3 Complement 142 90 - 180 mg/dL [facility] Blood 03/18/2023 2:14 PM EDT 03/18/2023 2:24 PM EDT Narrative Resulting Agency Comment Spec In Lab Kia D Wander DO CHEMISTRY ORDERABL ES Performing Organization Address City/[facility]/ZIP Co de Phone Number [facility] [place] [address] * C4 Complement (03/18/2023 2:14 PM EDT) C4 Complement 30 10 - 40 mg/dL [facility] Blood 03/18/2023 2:14 PM EDT 03/18/2023 2:24 PM EDT Narrative Resulting Agency Comment Spec In Lab Kia D Wander DO CHEMISTRY ORDERABL ES Performing Organization Address City/[facility]/ZIP Co de Phone Number [facility] [place] [address] * CK (03/18/2023 2:14 PM EDT) CK, Total 38 0 - 160 unit/L [facility] Blood 03/18/2023 2:14 PM EDT 03/18/2023 2:24 PM EDT Narrative Resulting Agency Comment Spec In Lab Kiasanta Viramontes DO CHEMISTRY ORDERABL ES Performing Organization Address [facility] de Phone Number [facility] [place] [address] * DNA Antibody (Double-Stranded) (03/18/2023 2:14 PM EDT) dsDNA Ab <0.6 <=15.0 IU/mL [facility] Comment: <10 negative 10-15 equivocal >15 positive This dsDNA antibody result was generated using a fluoroenzyme immunoassay on the [employer]-papeterie 250 analyzer. This quantitative test is designed to detect IgG antibodies directed against double stranded DNA in human serum. The presence of antibodies that recognize dsDNA is a highly specific marker for systemic lupus erythematosus. Please note that as of 05/26/2022 that this testing is performed by the Special Chemistry Laboratory at [facility]. This change in testing location is associated with a change is testing method and reference intervals. Please review the results of this test in association with the posted reference intervals. Blood 03/18/2023 2:14 PM EDT 03/19/2023 7:19 AM EDT Narrative Resulting Agency Comment Spec In Lab Kia Erika Mossdino HALL CHEMISTRY ORDERABL ES Performing Organization Address [facility] de Phone Number [facility] [place] [address] * (ABNORMAL) FRANCISCO Ab by IFA (03/18/2023 2:14 PM EDT) Antinuclear Ab Test ? Result ?Flag ??Unit ??RefValue Antinuclear Ab, HEp-2 ?Positive 1:2560 ??@ ?<1:80 (Negative) ??Substrate, S ? ADDITIONAL INFORMATION --------- ?Method: Immunofluorescence using HEp-2 cellular substrate. ??FRANCISCO Titer: ? 1:2560 ??FRANCISCO Pattern: ? Speckled ?Test Performed by: ?[facility] ?[address] [place] [address] ?Fire Inspector: Raymond Chaudhry M.D. Ph.D.; CLIA# [id number] ([id number]) [facility] Blood 03/18/2023 2:14 PM EDT 03/18/2023 3:02 PM EDT Narrative Resulting Agency Comment Spec In Lab Kia Viramontes DO CHEMISTRY ORDERABL ES [facility] [place] [address] * Comprehensive metabolic panel (non-fasting) (03/18/2023 2:14 PM EDT) Glucose Lvl 93 65 - 199 mg/dL [facility] Comment:Diabetes: >=200 mg/d L plus symptoms BUN 18 8 - 18 mg/dL [facility] Creatinine 0.99 0.70 - 1.20 mg/dL [facility] Sodium 141 135 - 145 mmol/L [facility] Potassium 4.5 3.5 - 5.0 mmol/L [facility] Comment: Please note: ??Patients with WBC >100,000 may have falsely elevated Potassium levels. ??For accurate Potassium quantification in these patients send serum separator tube (gold top) for subsequent determinations. ??Contact the Clinical Chemistry Laboratory if there are any questions. Chloride 106 98 - 107 mmol/L [facility] CO2 24 22 - 31 mmol/L [facility] Anion Gap 11 5 - 15 mmol/L [facility] Calcium 10.0 8.5 - 10.5 mg/dL [facility] Total Protein 7.3 6.1 - 8.0 g/dL [facility] Albumin 4.3 3.2 - 5.2 g/dL [facility] AST 26 0 - 30 unit/L [facility] ALT 11 0 - 30 unit/L [facility] Alk Phos 91 35 - 105 unit/L [facility] Total Bilirubin 0.4 0.2 - 1.3 mg/dL [facility] Estimated GFR 62 >=60 mL/min/1. 73 m?? [facility] [...] Lab Kia Viramontes DO CHEMISTRY ORDERABL ES [facility] [place] [address] documented in this encounter Visit Diagnoses Diagnosis Positive FRANCISCO (antinuclear antibody) Other and unspecified nonspecific immunological findings documented in this encounter Care Teams Cone Machine Operator Relationship Specialty Start Date End Date Magdalena Acosta MD [address] [place] [address] PCP - General Family Medicine 02/05/23 documented as of this encounter
--- OUTSIDE RECORDS SUMMARY | 2024-03-02 13:59 | XMS_ITS | Encounter Summary ---
Author Organization [facility] [place] [address] Care Team Providers Care Risk Management Analyst Name Role Phone Magdalena Acosta MD Primary Care Provider [phone] Encounter Details Date Type Department Care Team (Latest Contact Info) Description 02/05/2023 9:33 PM EDT - 02/05/2023 11:59 PM EDT Hospital [place] [phone] Discharge Disposition: Home Social History Tobacco Use [...] 11:30 AM EST Office [place] [address] Magdalena Peralta MD [facility] [place] [address] 03/01/2025 4:15 PM EDT Office Visit Dermatology at [place] [address] [facility] [place] [address] Marek Bonilla MD [address], [place] [address] documented as of this encounter Procedures Procedure Name Priority Date/Time Associated Diagnosis Comments SURGICAL PATHOLOGY REPORT Routine 02/05/2023 3:00 PM EDT documented in this encounter Results * Surgical Pathology Report (02/05/2023 3:00 PM EDT) FINAL DIAGNOSIS (AP) [id number] ? Location: OPW The signing pathologist has (i) examined the relevant preparation(s) for the specimen(s) and (ii) rendered or confirmed the diagnosis(es). . ?Surgical Pathology DIAGNOSIS Left upper back, skin punch biopsy: - ??Compound dysplastic ??melanocytic nevus with moderate atypia, transected at peripheral specimen edges ?? (see discussion) Electronically signed by: ?Vanna CULP, Jesse Shields Verified: ??02/16/2023 8:04 ?? Dermatopathologist Performed at: ??-[facility] Dept. of Pathology, [place] [address] Order Packer Or Packager: Kunal Rubi MD, FCAP, ??CLIA Certificate: [id number] DISCUSSION If there is an obvious clinical [...] labeled A1. ??sns 02/16/2023 8:04 AM EDT [facility] SPECIMEN FROM SKIN / Unknown 02/05/2023 3:00 PM EDT 02/05/2023 3:00 PM EDT Marek Bonilla MD PATHOLOGY/CYTOLOGY O REMI [facility] [place] [address] documented in this encounter Visit Diagnoses Not on filedocumented in this encounter Care Teams Risk Management Analyst Relationship Specialty Start Date End Date Magdalena Acosta MD [address] [place] [address] PCP - General Family Medicine 02/05/23 documented as of this encounter
--- OUTSIDE RECORDS SUMMARY | 2024-03-02 13:59 | XMS_ITS | Encounter Summary ---
Author Organization [facility] [place] [address] Care Team Providers Care Animal Park Code Enforcement Officer Name Role Phone Deborah Quiroga APRN Primary Care Provider [phone] Encounter Details Date Type Department Care Team (Late st Contact Info) Description 06/17/2022 Ancillary Procedure [place] [phone] Deborah Quiroga ELECTRO MECHANICAL TECHNOLOGIST [address] [facility] [address] [place], [place] [address] Social History Tobacco Use Types Packs/Day Years [...] EST Office [place] [phone] Magdalena Peralta MD [facility] [place] [address] 03/01/2025 4:15 PM EDT Office Visit Dermatology at [address] [place] [phone] Marek Bonilla MD [address], [place] [address] documented as of this encounter Procedures Procedure Name Priority Date/Time Associated Diagnosis Comments FILM LIBRARY STORAGE ONLY MR SPINE Routine 06/17/2022 12:00 AM EST documented in this encounter Results * Film Library- Storage Only MR Spine (06/17/2022 12:00 AM EST) Narrative [facility] - 06/18/2022 11:00 AM EST This exam is auto-finalizing. It's purpose is for storage only. Deborah Quiroga APRN IMGerman FILM LIBRARY OR DERABLES Performing Organization Address City/State/[facility] Co de Phone Number [place], [place] documented in this encounter Visit Diagnoses Not on filedocumented in this encounter Care Teams Animal Park Code Enforcement Officer Relationship Specialty Start Date End Date Deborah Quiroga APRN PCP - General Family Medicine 03/24/16 02/04/23 documented as of this encounter
--- OUTSIDE RECORDS SUMMARY | 2024-03-02 13:59 | XMS_ITS | Encounter Summary ---
Author Organization [facility] [place] [address] Care Team Providers Care Rack Maker Name Role Phone Magdalena Acosta MD Primary Care Provider [phone] Encounter Details Date Type Department Care Team [...] 11:30 AM EST [place] [address] [facility] [place] [address] 03/01/2025 4:15 PM EDT Office Visit Dermatology at [address] [place] [address] Marek Bonilla MD [address] [facility], [place] [address] documented as of this encounter Visit Diagnoses Not on filedocumented in this encounter Care Teams Rack Maker Relationship Specialty Start Date End Date Magdalena Acosta MD [address] [place] [address] PCP - General Family Medicine 02/05/23 documented as of this encounter
--- OUTSIDE RECORDS SUMMARY | 2024-03-02 13:59 | XMS_ITS | Encounter Summary ---
Author Organization [facility] Address [facility] [place] [address] Care Team Providers Care Gallery Intern Name Role Phone Ashley Quirogazac Shields APRN Primary Care Provider [phone] Reason for Referral * Consultation (Routine) - Closed Specialty Diagnoses / Procedures Referred By Contac t Referred To Contact Neurology Diagnoses Neck pain Popeye Rogers MD [facility] [place] [address] [facility] [address] [address] Referral ID Status Reason Start Date Expiration Date V isits Requested Visits Authorized [id number] Closed Consult, Test & Treat 06/29/2022 06/29/2023 1 1 Reason for Visit * Reason Comments Neck Pain Weak in both arms, p ain and tingling in arms and hands Encounter Details Date Type Department Care Team (Late st Contact Info) Description 06/29/2022 10:20 AM EST Office Visit [facility] [place] [address] Popeye Rogers MD [facility] [place] [address] Neck pain Social History Tobacco Use Types [...] have EMG and nerve conduction studies in [place] that showed carpal tunnel syndrome. I do not have a copy of that report. documented in this encounter Plan of Treatment Upcoming Encounters Date Type Department Care Team (Late st Contact Info) Description 06/05/2024 11:30 AM EST Office [place] [address] Magdalena Peralta MD [facility] [place] [address] 03/01/2025 4:15 PM EDT Office Visit Dermatology at [address] [place] [address] Marek Bonilla MD [address] [place] [address], [place] [address] Scheduled Referrals Name Type Priority Associated Diagnoses Orde r Schedule Referral to Neurology Outpatient Referral Routine Neck pain Ordered: 06/29/2022 documented as of this encounter Visit Diagnoses Diagnosis Neck pain Cervicalgia documented in this encounter Care Teams Gallery Intern Relationship Specialty Start Date End Date Deborah Quiroga APRN PCP - General Family Medicine 03/24/16 02/04/23 documented as of this encounter
--- OUTSIDE RECORDS SUMMARY | 2024-03-02 13:59 | XMS_ITS | Encounter Summary ---
Author Organization [facility] [place] [address] Care Team Providers Care Labor Economics Teacher Name Role Phone Magdalena Acosta MD Primary Care Provider [phone] Encounter Details Date Type Department Care Team [...] 11:30 AM EST Office [place] [address] Magdalena Peralta MD [facility] [place] [address] 03/01/2025 4:15 PM EDT Office Visit Dermatology at [address] [place] [address] Marek Bonilla MD [address] [facility], [place] [address] documented as of this encounter Visit Diagnoses Not on filedocumented in this encounter Care Teams Labor Economics Teacher Relationship Specialty Start Date End Date Magdalena Acosta MD [address] [place] [address] PCP - General Family Medicine 02/05/23 documented as of this encounter
--- OUTSIDE RECORDS SUMMARY | 2024-03-02 13:59 | XMS_ITS | Encounter Summary ---
Author Organization [facility] [place] [address] Care Team Providers Care Winding Inspector And Tester Name Role Phone Magdalena Acosta MD Primary Care Provider [phone] Encounter Details Date Type Department Care Team [...] 11:30 AM EST Office [place] [address] Magdalena Peralta MD [facility] [place] [address] 03/01/2025 4:15 PM EDT Office Visit Dermatology at [address] [place] [address] Marek Bonilla MD [address] [facility], [place] [address] documented as of this encounter Visit Diagnoses Not on filedocumented in this encounter Care Teams Winding Inspector And Tester Relationship Specialty Start Date End Date Magdalena Acosta MD [address] [place] [address] PCP - General Family Medicine 02/05/23 documented as of this encounter
--- OUTSIDE RECORDS SUMMARY | 2024-03-02 13:59 | XMS_ITS | Encounter Summary ---
Author Organization [facility] [place] [address] Care Team Providers Care Cnc Wood Lathe Operator Name Role Phone Deborah Quiroga APRN Primary Care Provider [phone] Encounter Details Date Type Department Care Team [...] 11:30 AM EST Office [place] [address] Magdalena Peralta MD [facility] [place] [address] 03/01/2025 4:15 PM EDT Office Visit Dermatology at [address] [place] [address] Marek Bonilla MD [address] [facility] [address], [place] [address] documented as of this encounter Visit Diagnoses Not on filedocumented in this encounter Care Teams Cnc Wood Lathe Operator Relationship Specialty Start Date End Date Deborah Quiroga APRN PCP - General Family Medicine 03/24/16 02/04/23 documented as of this encounter
--- OUTSIDE RECORDS SUMMARY | 2024-03-02 13:59 | XMS_ITS | Encounter Summary ---
Author Organization Formerly [facility], [facility] Address [facility] [place] [address] Care Team Providers Care Aircraft Maintenance Technician Name Role Phone Magdalena Acosta MD Primary Care Provider [phone] Reason for Visit * Consultation (Routine) - Closed Specialty Diagnoses / Procedures Referred By Contac t Referred To Contact Rheumatology Diagnoses Weakness Kyra Haas MD [facility] [address] [place] [address] [facility] [place] [place] Rheumatology [address] [place] [phone] Referral ID Status Reason Start Date Expiration Date V isits Requested Visits Authorized [id number] Closed Consult, Test & Treat PCP Updated and/or Approved 02/25/2023 02/25/2024 6 6 Encounter Details Date Type Department Care Team (Late st Contact Info) Description 03/18/2023 1:00 PM EDT Office [place] [address] Kia Viramontes DO [facility] [place] [address] Magdalena Peralta MD [facility] [place] [address] Positive FRANCISCO (antinuclear antibody) Social [...] 1:5120 speckled VIC negative Myositis panel with BUSINESS ACCOUNT LEADER ab 149.1 (positive) Anti U1RNP IgG [...] a chair without assistance of upper extremities. 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 Recommendations: #mixed connective tissue disease Start hydroxychloroquine 200 mg qd Labs today: repeat FRANCISCO, dsDNA, complements, CBC, CMP, CK, ESR, CRP Follow up 1 month The patient was seen and discussed with Dr. Wander Peralta MD Rheumatology Fellow Pager: [phone] CC: Kyra Haas * Kia Viramontes DO - 03/18/2023 1:00 PM EDT ATTENDING ADDENDUM The patient's history was reviewed, and I interviewed and examined the patient with Dr. Peralta. Catalina with her summary, findings, and plan. documented in this encounter Plan of Treatment Upcoming Encounters Date Type Department Care Team (Late st Contact Info) Description 06/05/2024 11:30 AM EST Office [place] [address] Magdalena Peralta MD [facility] [place] [address] 03/01/2025 4:15 PM EDT Office Visit Dermatology at [place] [address] [place] [phone] Marek Bonilla MD [address] [place] [address] documented as of this encounter Results * Comprehensive metabolic panel (non-fasting) (03/18/2023 2:14 PM EDT) [facility] Glucose Lvl 93 65 - 199 mg/dL [facility] Comment:Diabetes: >=200 mg/d L plus symptoms BUN 18 8 - 18 mg/dL [facility] Creatinine 0.99 0.70 - 1.20 mg/dL [facility] Sodium 141 135 - 145 mmol/L [facility] Potassium 4.5 3.5 - 5.0 mmol/L [facility] Comment: Please note: ??Patients with WBC >100,000 may have falsely elevated Potassium levels. ??For accurate Potassium quantification in these patients send serum separator tube (gold top) for subsequent determinations. ??Contact the Clinical Chemistry Laboratory if there are any questions. Chloride 106 98 - 107 mmol/L [facility] CO2 24 22 - 31 mmol/L [facility] Anion Gap 11 5 - 15 mmol/L [facility] Calcium 10.0 8.5 - 10.5 mg/dL [facility] Total Protein 7.3 6.1 - 8.0 g/dL [facility] Albumin 4.3 3.2 - 5.2 g/dL [facility] AST 26 0 - 30 unit/L [facility] ALT 11 0 - 30 unit/L [facility] Alk Phos 91 35 - 105 unit/L [facility] Total Bilirubin 0.4 0.2 - 1.3 mg/dL [facility] Estimated GFR 62 >=60 mL/min/1. 73 m?? [facility] Comment: This patient's estimated [...] Lab Kia Viramontes DO CHEMISTRY ORDERABL ES [facility] [place] [address] * (ABNORMAL) FRANCISCO Ab by IFA (03/18/2023 2:14 PM EDT) Antinuclear Ab Test ? Result ?Flag ??Unit ??RefValue Antinuclear Ab, HEp-2 ?Positive 1:2560 ??@ ?<1:80 (Negative) ??Substrate, S ? ADDITIONAL INFORMATION --------- ?Method: Immunofluorescence using HEp-2 cellular substrate. ??FRANCISCO Titer: ? 1:2560 ??FRANCISCO Pattern: ? Speckled ?Test Performed by: ?[facility] ?[address] [id number] ?Ornamental Iron Worker Apprentice: Raymond Chaudhry M.D. Ph.D.; CLIA# [id number] ([id number]) [facility] Blood 03/18/2023 2:14 PM EDT 03/18/2023 3:02 PM EDT Narrative Resulting Agency Comment Spec In Lab Kia Viramontes DO CHEMISTRY ORDERABL ES [facility] [place] [address] * DNA Antibody (Double-Stranded) (03/18/2023 2:14 PM EDT) dsDNA Ab <0.6 <=15.0 IU/mL [facility] Comment: <10 negative 10-15 equivocal >15 positive This dsDNA antibody result was generated using a fluoroenzyme immunoassay on the [employer] 250 analyzer. This quantitative test is designed to detect IgG antibodies directed against double stranded DNA in human serum. The presence of antibodies that recognize dsDNA is a highly specific marker for systemic lupus erythematosus. Please note that as of 05/26/2022 that this testing is performed by the Special Chemistry Laboratory at [facility]. This change in testing location is associated with a change is testing method and reference intervals. Please review the results of this test in association with the posted reference intervals. Blood 03/18/2023 2:14 PM EDT 03/19/2023 7:19 AM EDT Narrative Resulting Agency Comment Spec In Lab Kia Mossew DO CHEMISTRY ORDERABL ES Performing Organization Address [facility] Co de Phone Number [facility] [place] [address] * CK (03/18/2023 2:14 PM EDT) CK, Total 38 0 - 160 unit/L [facility] Blood 03/18/2023 2:14 PM EDT 03/18/2023 2:24 PM EDT Narrative Resulting Agency Comment Spec In Lab Kia D Wander DO CHEMISTRY ORDERABL ES Performing Organization Address [facility] Co de Phone Number [facility] [place] [address] * C4 Complement (03/18/2023 2:14 PM EDT) Pathologist [facility] C4 Complement 30 10 - 40 mg/dL [facility] Blood 03/18/2023 2:14 PM EDT 03/18/2023 2:24 PM EDT Narrative Resulting Agency Comment Spec In Lab Kia D Wander DO CHEMISTRY ORDERABL ES Performing Organization Address [facility] Co de Phone Number [facility] [place] [address] * C3 Complement (03/18/2023 2:14 PM EDT) Pathologist [facility] C3 Complement 142 90 - 180 mg/dL [facility] Blood 03/18/2023 2:14 PM EDT 03/18/2023 2:24 PM EDT Narrative Resulting Agency Comment Spec In Lab Kia D Wander DO CHEMISTRY ORDERABL ES Performing Organization Address [facility]/ZIP Co de Phone Number [facility] [place] [address] * CRP, acute inflammation (03/18/2023 2:14 PM EDT) CRP 3.0 <=4.9 mg/L [facility] Blood 03/18/2023 2:14 PM EDT 03/18/2023 2:24 PM EDT Narrative Resulting Agency Comment Spec In Lab Kia D Wander CHEMISTRY ORDERABL ES Performing Organization Address [facility] Co de Phone Number [facility] [place] [address] * (ABNORMAL) Sedimentation rate (03/18/2023 2:14 PM EDT) Sed Rate 68(H) 2 - 39 mm/hr [facility] Comment: Effective July 12, 2019 new capillary photometric technology has resulted in a change in reference ranges. It is recommended that each ESR result be reviewed with its own age appropriate reference range. Blood 03/18/2023 2:14 PM EDT 03/18/2023 2:24 PM EDT Narrative Resulting Agency Comment Spec In Lab Kia Viramontes DO HEMATOLOGY ORDERAB LES Performing Organization Address [facility] Co de Phone Number [facility] [place] [address] documented in this encounter Visit Diagnoses Diagnosis Positive FRANCISCO (antinuclear antibody) Other and unspecified nonspecific immunological findings documented in this encounter Care Teams Aircraft Maintenance Technician Relationship Specialty Start Date End Date Magdalena Acosta MD [address] [place] [address] PCP - General Family Medicine 02/05/23 documented as of this encounter
--- OUTSIDE RECORDS SUMMARY | 2024-03-02 13:59 | XMS_ITS | Encounter Summary ---
Author Organization [facility] [place] [address] Care Team Providers Care Wildlife Officer Name Role Phone Deborah Quiroga APRN Primary Care Provider [phone] Reason for Referral * Consultation (Routine) - Closed Specialty Diagnoses / Procedures Referred By Crispin maxwell Referred To Contact Neurology Diagnoses Polyneuropathy Deborah Quiroga APRN [address] [place] [address] [facility] [address] [place] [phone] Referral ID Status Reason Start Date Expiration Date V isits Requested Visits Authorized [id number] Closed Consult, Test & Treat 10/29/2022 10/29/2023 1 1 Encounter Details Date Type Department Care Team (Latest Contact Info) Description 10/29/2022 Transcribe Orders eDH Incoming Referrals [phone] Deborah Quiroga APRN [address] [place] [address] Polyneuropathy (Primary Dx) Social History [...] 11:30 AM EST Office [place] [address] Magdalena Peralta MD [facility] [place] [address] 03/01/2025 4:15 PM EDT Office Visit Dermatology at [place] [address] [place] [address] Marek Bonilla MD [address] [place] [address] Scheduled Referrals Name Type Priority Associated Diagnoses Orde r Schedule Referral to Neurology Outpatient Referral Routine Polyneuropathy Ordered: 10/29/2022 documented as of this encounter Visit Diagnoses Diagnosis Polyneuropathy- Primary Unspecified hereditary and idiopathic peripheral neuropathy documented in this encounter Care Teams Wildlife Officer Relationship Specialty Start Date End Date Deborah Quiroga APRN PCP - General Family Medicine 03/24/16 02/04/23 documented as of this encounter
--- OUTSIDE RECORDS SUMMARY | 2024-03-02 13:59 | XMS_ITS | Encounter Summary ---
Author Organization [facility] Address [facility] [place] [address] Care Team Providers Care Terminal Manager Name Role Phone Deborah Quiroga APRN Primary Care Provider [phone] Reason for Visit * Reason Comments Follow-up Encounter Details Date Type Department Care Team (Late st Contact Info) Description 07/03/2022 1:30 PM EST Office Visit [place]ematology [place] [address] Markel Borjas MD [facility] [address] [place] [address] Consuelo Sommre APRN [facility] [place] [address] Chronic idiopathic neutropenia; Dysuria Social History Tobacco [...] 07/03/2022 1:30 PM EST Hematology Outpatient Clinic [facility] Hematology Outpatient Consult Note CC: 60 year old woman with h/o worsening due for upcoming CT Surgery referred for work-up of incidentally found leukopenia with neutropenia on pre-op assessment. The patient comes to clinic alone.Available medical records were reviewed. HPI (original): Purnima is a 60-year-old woman referred by Dr. Esparaz for further assessment of leukopenia and neutropenia [...] TOUCH PREP, CLOT SECTION, CORE ??BIOPSY); [OSR# [id number], COLLECTED 06/23/2016, 19 SLIDES]: ?1. ??Normocellular marrow [...] a clonal lymphoproliferative or myeloproliferative disorder (OSR# [id number]) Chromosome analysis on the marrow aspirate revealed [...] neg ETOH - neg Works at 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 Extremities: No edema. Labs: Hgb= 11.7 Ymni=804 ANC= 2.5 Imaging As above - reviewed [...] 11:30 AM EST Office [place] [address] Magdalena Peralta MD [facility] [place] [address] 03/01/2025 4:15 PM EDT Office Visit Dermatology at [place] [address] [facility] [place] [phone] Marek Bonilla MD [address] [facility], [address] DERMATOLOGY [place], [place] [phone] documented as of this encounter Procedures Procedure [...] tract infection, submit a new specimen. (A) [facility] Clean Catch Urine 07/03/2022 2:00 PM EST 07/03/2022 5:55 PM EST Narrative Resulting Agency Comment Spec In Lab Marekl Borjas MD MICROBIOLOGY - GEN ERAL ORDERABLES Performing Organization Address [facility]/ZIP Co de Phone Number [facility] [place] [address] * (ABNORMAL) Urinalysis Microscopic Exam (07/03/2022 2:00 PM EST) Pathologist [facility] RBC UA 2 0 - 4 /HPF [facility] WBC UA 14(H) 0 - 5 /HPF [facility] Bacteria UA Occasional (A) None /HPF [facility] Squam Epith UA 12(H) <=4 /HPF [facility] Hyaline Cast UA 2 0 - 2 /LPF [facility] Clean Catch Urine 07/03/2022 2:00 PM EST 07/03/2022 2:29 PM EST Narrative Resulting Agency Comment Spec In Lab Markel Borjas MD URINE ORDERABLES Performing Organization Address City/[facility]/ZIP Co de Phone Number [facility] [place] [address] * (ABNORMAL) Urinalysis with reflex Culture (07/03/2022 2:00 PM EST) Pathologist [facility] Glucose UA Negative Negative mg/dL [facility] Protein UA 30(A) Negative mg/dL [facility] Bilirubin UA Negative Negative mg/dL [facility] Comment: Clinical correlation required for positive Urine Bilirubin results as false positive may occur with some drugs and drug related products. If a false positive is suspected a serum total bilirubin should be considered if clinically indicated. Urobilinogen UA Normal Normal mg/dL [facility] pH UA 5.5 5.0 - 8.0 [facility] Blood UA Negative Negative mg/dL [facility] Ketones UA Trace(A) Negative mg/dL [facility] Nitrite UA Negative Negative [facility] Leukocytes UA Small(A) Negative [facility] Appearance UA Clear Clear [facility] Spec [place] UA 1.022 1.005 - 1.030 [facility] Color UA Yellow Yellow [facility] Culture Reflexed Yes [facility] Clean Catch Urine 07/03/2022 2:00 PM EST 07/03/2022 2:29 PM EST Narrative Resulting Agency Comment Spec In Lab Markel Borjas MD URINE ORDERABLES Performing Organization Address City/State/[facility] Co de Phone Number [facility] [address] * (ABNORMAL) Comprehensive metabolic panel (non-fasting) (07/03/2022 12:40 PM EST) Glucose Lvl 92 65 - 199 mg/dL [facility] Comment:Diabetes: >=200 mg/d L plus symptoms BUN 22(H) 8 - 18 mg/dL [facility] Creatinine 0.80 0.70 - 1.20 mg/dL [facility] Sodium 139 135 - 145 mmol/L [facility] Potassium 4.2 3.5 - 5.0 mmol/L [facility] Comment: Please note: ??Patients with WBC >100,000 may have falsely elevated Potassium levels. ??For accurate Potassium quantification in these patients send serum separator tube (gold top) for subsequent determinations. ??Contact the Clinical Chemistry Laboratory if there are any questions. Chloride 105 98 - 107 mmol/L [facility] CO2 23 22 - 31 mmol/L [facility] Anion Gap 11 5 - 15 mmol/L [facility] Calcium 10.1 8.5 - 10.5 mg/dL [facility] Total Protein 7.6 6.1 - 8.0 g/dL [facility] Albumin 4.1 3.2 - 5.2 g/dL [facility] AST 25 0 - 30 unit/L [facility] ALT 14 0 - 30 unit/L [facility] Alk Phos 80 35 - 105 unit/L [facility] Total Bilirubin 0.3 0.2 - 1.3 mg/dL [facility] Estimated GFR 81 >=60 mL/min/1. 73 m?? [facility] Comment: This patient's estimated GFR [...] Lab Markel Borjas MD CHEMISTRY ORDERABL ES [facility] [place] [address] documented in this encounter Visit Diagnoses Diagnosis Chronic idiopathic neutropenia Other neutropenia Dysuria documented in this encounter Care Teams Terminal Manager Relationship Specialty Start Date End Date Deborah Quiroga APRN PCP - General Family Medicine 03/24/16 02/04/23 documented as of this encounter
--- OUTSIDE RECORDS SUMMARY | 2024-03-02 13:59 | XMS_ITS | Encounter Summary ---
Author Organization [place] [address] Care Team Providers Care Leather Etcher Name Role Phone Deborah Quiroga APRN Primary Care Provider [phone] Encounter Details Date Type Department Care Team (Latest Contact Info) Description 07/03/2022 1:36 PM EST - 07/03/2022 11:59 PM EST Hospital Encounter Hematology [place] [address] Discharge Disposition: Home Social History Tobacco Use [...] 11:30 AM EST Office [place] [address] Magdalena Peralta MD [facility] [place] [address] 03/01/2025 4:15 PM EDT Office Visit Dermatology at [place] [address] [facility] [place] [address] Marek Bonilla MD [address], [place] [address] documented as of this encounter Procedures Procedure Name Priority Date/Time Associated Diagnosis Comments FOLATE, SERUM Routine 07/03/2022 1:59 PM EST VITAMIN B12 Routine 07/03/2022 1:59 PM EST documented in this encounter Results * Folate, serum (07/03/2022 1:59 PM EST) Folate Lvl >20.0 4.8 - 24.2 ng/mL [facility] Blood Venous Draw / Unknown 07/03/2022 1:59 PM EST 07/03/2022 2:13 PM EST Narrative Resulting Agency Comment Spec In Lab Markel Borjas MD CHEMISTRY ORDERABL ES Performing Organization Address City/[facility]/ZIP Co de Phone Number [facility] [place] [address] * Vitamin B12 (07/03/2022 1:59 PM EST) Vitamin B-12 449 232 - 1,245 pg/mL [facility] Blood Venous Draw / Unknown 07/03/2022 1:59 PM EST 07/03/2022 2:13 PM EST Narrative Resulting Agency Comment Spec In Lab Markel Borjas MD CHEMISTRY ORDERABL ES Performing Organization Address City/[facility]/ZIP Co de Phone Number [facility] [place] [address] documented in this encounter Visit Diagnoses Not on filedocumented in this encounter Care Teams Leather Etcher Relationship Specialty Start Date End Date Deborah Quiroga APRN PCP - General Family Medicine 03/24/16 02/04/23 documented as of this encounter
--- OUTSIDE RECORDS SUMMARY | 2024-03-02 13:59 | XMS_ITS | Encounter Summary ---
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 documented in this encounter Plan of Treatment Upcoming Encounters Date Type Department Care Team (Late st Contact Info) Description 06/05/2024 11:30 AM EST Office [place] [address] Magdalena Peralta MD [facility] [place] [address] 03/01/2025 4:15 PM EDT Office Visit Dermatology at [place] [address] [place] [address] Marek Bonilla MD [address] DERMATOLOG[address] [place], [place] [phone] documented as of this encounter Visit Diagnoses Not on filedocumented in this encounter Care Teams Industrial Gas Servicer Relationship Specialty Start Date End Date Magdalena Acosta MD [address] [place] [address] PCP - General Family Medicine 02/05/23 documented as of this encounter
--- OUTSIDE RECORDS SUMMARY | 2024-03-02 13:59 | XMS_ITS | Encounter Summary ---
Author Organization [facility] [place] [address] Care Team Providers Care Roller Staker Name Role Phone Magdalena Acosta MD Primary Care Provider [phone] Encounter Details Date Type Department Care Team (Late st Contact Info) Description 05/08/2023 [place] [phone] Luis Felipe Ott MD [facility] [place] [address] Social History Tobacco Use Types Packs/Day Years [...] 0426 Referring Provider: Nitesh Baltazar Patient Location: [facility] Presenting Symptoms per OSH: 67 year [...] diuresis with IV furosemide 20 x 1 ([id number]/47 at rheumatology appointment), SpO2 85% on RA -> 95% on 2L NC, HR 120s. Examination significant for decreased breath sounds at the bases. Pertinent Diagnostic Findings: CBC - Hgb 10.5 CMP - Cr 1.1 BNP 03767 HsTrop 1358 Lactate 1.6 D-dimer 1183, CTPE pending CXR demonstrated pulmonary vascular congestion US showed bilateral b lines Bedside echo reportedly similar to prior TTE for LV function OSH Interventions: ASA 324 Heparin gtt Plan: Transfer to [facility] Above recommendations/plans are based on my conversation with the referring provider. I have not personally interviewed or examined this patient. Luis Felipe Ott MD Formwork Carpenter Received a call from provider emergently at 715am. Mentating well and BP 87/53. HR 108 and diursingwell. They were about to start phenylephrine which I stressed was not a good option given concern for severe and increasing afterload. She is warm on exam, mentating and urinating and we do not need to amrit a BP if those things remain stable. Nico Segura, PGY-6 Formwork Carpenter [id number] documented in this encounter Plan of Treatment Upcoming Encounters Date Type Department Care Team (Late st Contact Info) Description 06/05/2024 11:30 AM EST Office [place] [address] Magdalena Peralta MD [facility] [place] [address] 03/01/2025 4:15 PM EDT Office Visit Dermatology at [address] [place] [phone] Marek Bonilla MD [address] [place] [address] documented as of this encounter Visit Diagnoses Not on filedocumented in this encounter Care Teams Roller Staker Relationship Specialty Start Date End Date Magdalena Acosta MD [address] [place] [address] PCP - General Family Medicine 02/05/23 documented as of this encounter
--- OUTSIDE RECORDS SUMMARY | 2024-03-02 13:59 | XMS_ITS | Encounter Summary ---
Author Organization [facility] Address [facility] [place] [address] Care Team Providers Care Sap Solution Manager Consultant Name Role Phone Magdalena Acosta MD Primary Care Provider [phone] Encounter Details Date Type Department Care Team (Late st Contact Info) Description 04/27/2023 3:00 PM EDT Office Visit [place] [address] Magdalena Peralta MD [facility] [place] [address] Mixed connective tissue disease Social History Tobacco [...] 1:5120 speckled; VIC negative; Myositis panel with INSURANCE ADVISOR ab 149.1 (positive); Anti U1RNP IgG 119; [...] 11:30 AM EST Office Visit [place] [address] Magdalena Peralta MD [facility] [place] [address] 03/01/2025 4:15 PM EDT Office Visit Dermatology at [address] [place] [address] Marek Bonilla MD [address], [place] [address] documented as of this encounter Visit Diagnoses Diagnosis Mixed connective tissue disease Other specified diffuse disease of connective tissue documented in this encounter Care Teams Sap Solution Manager Consultant Relationship Specialty Start Date End Date Magdalena Acosta MD [address] [place] [address] PCP - General Family Medicine 02/05/23 documented as of this encounter
--- OUTSIDE RECORDS SUMMARY | 2024-03-02 13:59 | XMS_ITS | Encounter Summary ---
Author Organization [facility] [place] [address] Care Team Providers Care Jewel Hole Finish Opener Name Role Phone Magdalena Acsota MD Primary Care Provider [phone] Encounter Details Date Type Department Care Team [...] AM EST Office Visit [place] [address] Magdalena Peralta MD [facility] [place] [address] 03/01/2025 4:15 PM EDT Office Visit Dermatology at [address] [place] [address] Marek Bonilla MD [address] [facility], [place] [address] documented as of this encounter Visit Diagnoses Not on filedocumented in this encounter Care Teams Jewel Hole Finish Opener Relationship Specialty Start Date End Date Magdalena Acosta MD [address] [place] [address] PCP - General Family Medicine 02/05/23 documented as of this encounter
--- OUTSIDE RECORDS SUMMARY | 2024-03-02 13:59 | XMS_ITS | Encounter Summary ---
[place] [address] Care Team Providers Care Photo Lab Specialist Name Role Phone Ashley Quirogazac Shields APRN Primary Care Provider [phone] Reason for Visit * Reason Comments Annual Exam Encounter Details Date Type Department Care Team (Late st Contact Info) Description 01/09/2022 3:15 PM EDT Office Visit Dermatology at [address] [address] Marek Bonilla MD [address] [facility], TODD A DERMATOLOGY [place], [place] [address] Rosacea Social History Tobacco Use Types Packs/Day [...] cutaneous and ocular 2. Previously told by dispatch clerk that she had corneal tears from her [...] refills. We will call this into her [facility] pharmacy in [place] 3. Continue metronidazole 0.75% gel applying every other day after washing as needed. We will give her 45 g with 5 refills. 4. Return to clinic in a year for repeat check CC: Deborah Quiroga APRN documented in this encounter Plan of Treatment Upcoming Encounters Date Type Department Care Team (Late st Contact Info) Description 06/05/2024 11:30 AM EST Office [place] [address] Magdalena Peralta MD [facility] [place] [address] 03/01/2025 4:15 PM EDT Office Visit Dermatology at [address] [place] [address] Marek Bonilla MD [address] [facility], [place] [address] documented as of this encounter Visit Diagnoses Diagnosis Rosacea documented in this encounter Care Teams Photo Lab Specialist Relationship Specialty Start Date End Date Deborah Quiroga APRN PCP - General Family Medicine 03/24/16 02/04/23 documented as of this encounter
--- OUTSIDE RECORDS SUMMARY | 2024-03-02 13:59 | XMS_ITS | Encounter Summary ---
Author Organization [facility] Address [facility] [place] [address] Care Team Providers Care Staffing Program Manager Name Role Phone Deborah Quiroga APRN Primary Care Provider [phone] Encounter Details Date Type Department Care Team (Late st Contact Info) Description 01/09/2022 Refill Dermatology at [address] [address] Lupe Connor RN Social History [...] 11:30 AM EST Office [place] [address] Magdalena Peralta MD [facility] [place] [address] 03/01/2025 4:15 PM EDT Office Visit Dermatology at [address] [address] Marek Bonilla MD [address] [place] [address], [place] [address] documented as of this encounter Visit Diagnoses Not on filedocumented in this encounter Care Teams Staffing Program Manager Relationship Specialty Start Date End Date Deborah Quiroga APRN PCP - General Family Medicine 03/24/16 02/04/23 documented as of this encounter
--- OUTSIDE RECORDS SUMMARY | 2024-03-02 14:00 | XMS_ITS | Encounter Summary ---
Author Organization [facility] Address [facility] [place] [address] Care Team Providers Care Manager Process Excellence Name Role Phone Deborah Quiroga ANURAG Primary Care Provider [phone] Encounter Details Date Type Department Care Team (Late st Contact Info) Description 01/13/2021 Refill Dermatology at [address] [address] Taylor Malone, CLOTHES PRESSER Social History Tobacco Use Types Packs/Day Years [...] 11:30 AM EST Office [place] [address] Magdalena Peralta MD [facility] [place] [address] 03/01/2025 4:15 PM EDT Office Visit Dermatology at [address] [address] Marek Bonilla MD [address] [place] [address], TODD A DERMATOLOGY [place], [place] [address] documented as of this encounter Visit Diagnoses Not on filedocumented in this encounter Care Teams Manager Process Excellence Relationship Specialty Start Date End Date Deborah Quiroga APRN PCP - General Family Medicine 03/24/16 02/04/23 documented as of this encounter
--- OUTSIDE RECORDS SUMMARY | 2024-03-02 14:00 | XMS_ITS | Encounter Summary ---
Author Organization [facility] Address [facility] [place] [address] Care Team Providers Care Film Recordist Name Role Phone Deborah Quiroga ANURAG Primary Care Provider [phone] Encounter Details Date Type Department Care Team (Late st Contact Info) Description 07/21/2017 Orders Only Hematology [place] [address] Alexandrea Greenwood RN Other neutropenia Social History [...] 11:30 AM EST Office [place] [address] Magdalena Peralta MD [facility] [place] [address] 03/01/2025 4:15 PM EDT Office Visit Dermatology at [place] [address] [facility] [place] [address] Marek Bonilla MD 580 [facility], [place] [address] documented as of this encounter Visit Diagnoses Diagnosis Other neutropenia documented in this encounter Care Teams Film Recordist Relationship Specialty Start Date End Date Deborah Quiroga, CAPSULE FILLING MACHINE OPERATOR PCP - General Family Medicine 03/24/16 02/04/23 documented as of this encounter
--- OUTSIDE RECORDS SUMMARY | 2024-03-02 14:00 | XMS_ITS | Encounter Summary ---
[place] [address] Care Team Providers Care Branch Chief Name Role Phone Ashley Quirogan Cornelius ANURAG Primary Care Provider [phone] Reason for Visit * Reason Onset Date Comments Medical Care Coordination 07/27/2017 Encounter Details Date Type Department Care Team (Late st Contact Info) Description 07/27/2017 Telephone Hematology [place] [address] Alexandrea Greenwood RN Medical Care Coordination Social [...] 07/27/2017 12:25 PM EST Message received from route rider: Injection/Infusion Referral Call placed to [facility] @ [phone] Spoke w/ PROTOTYPE SEWER Services to be provided for pt are: CBC/CMP DONE Q6 MONTHS X2 STARTING NOVEMBER 2017 TECH confirmed they would provide services to pt - I CALLED PT, LM. Pt orders faxed to [phone] documented in this encounter Plan of Treatment Upcoming Encounters Date Type Department Care Team (Late st Contact Info) Description 06/05/2024 11:30 AM EST Office Visit [place] [address] Magdalena Peralta MD [facility] DR [place] [address] 03/01/2025 4:15 PM EDT Office Visit Dermatology at [place] [address] [facility] [place] [address] Marek Bonilla MD [address], [place] [address] documented as of this encounter Visit Diagnoses Not on filedocumented in this encounter Care Teams Branch Chief Relationship Specialty Start Date End Date Deborah Quiroga APRN PCP - General Family Medicine 03/24/16 02/04/23 documented as of this encounter
--- OUTSIDE RECORDS SUMMARY | 2024-03-02 14:00 | XMS_ITS | Encounter Summary ---
Author Organization [facility] Erika l[place] [address] Care Team Providers Care Carbon Capture Power Plant Engineer Name Role Phone Deborah Quiroga APRN Primary Care Provider [phone] Encounter Details Date Type Department Care Team (Late st Contact Info) Description 06/05/2021 Interpretation Only [address] [address] Deborah Quiroga APRN [address] [address] Social History Tobacco Use Types Packs/Day Years [...] 11:30 AM EST Office [place] [address] Magdalena Peralta MD [facility] [place] [address] 03/01/2025 4:15 PM EDT Office Visit Dermatology at [place] [address] [facility] [place] [address] Marek Bonilla MD [address], [place] [address] documented as of this encounter Procedures Procedure Name Priority Date/Time Associated Diagnosis Comments MAMMO SCREENING CAD BILATERAL Routine 06/05/2021 11:42 AM EDT documented in this encounter Results * Mammo Screening Cad Bilateral (06/05/2021 11:42 AM EDT) PT CLASS O DH RAD ADMITDTTM DH RAD PT DH RAD INFO [id number]^EV ERETT^DEBORAH^E DH RAD EXAM DESC MADDSC^SCREEN MAMMO [...] who have questions please contact the health companion caregiver that requested your imaging first. ? [...] patients who have questions please contactthe health companion caregiver that requested your imaging first. Deborah Quiroga APRN IMG MAMMO ORDERABLE S documented in this encounter Visit Diagnoses Not on filedocumented in this encounter Care Teams Carbon Capture Power Plant Engineer Relationship Specialty Start Date End Date Deborah Quiroga APRN PCP - General Family Medicine 03/24/16 02/04/23 documented as of this encounter
--- OUTSIDE RECORDS SUMMARY | 2024-03-02 14:00 | XMS_ITS | Encounter Summary ---
Author Organization [facility] Address [facility] [place] [address] Care Team Providers Care Draw Bench Operator Helper Name Role Phone Ashley Quirogazac Shields APRN Primary Care Provider [phone] Encounter Details Date Type Department Care Team (Late st Contact Info) Description 10/20/2016 11:20 AM EDT Office [place] [address] Alirio Esparza MD [facility] [place] [address] S/P AVR Social History Tobacco Use Types [...] all of her postoperative tests done at [facility]. Her echo shows a well-seated valve. Her EF, for some reason, was read as in the 45% to 50% range. She had a normal EF to start. I think that will need to be repeated at [facility]. She has no perivalve leak. Her [...] should continue to see Dr. Burrell, her label pinker at [facility]. cc: Dr. Burrell documented in this encounter Plan of Treatment Upcoming Encounters Date Type Department Care Team (Late st Contact Info) Description 06/05/2024 11:30 AM EST [place] [address] Magdalena Pearlta MD [facility] [place] [address] 03/01/2025 4:15 PM EDT Office Visit Dermatology at [address] [place] [address] Marek Bonilla MD [address] [facility] [address], [place] [address] documented as of this encounter Visit Diagnoses Diagnosis S/P AVR Heart valve replaced by other means documented in this encounter Care Teams Draw Bench Operator Helper Relationship Specialty Start Date End Date Deborah Quiroga APRN PCP - General Family Medicine 03/24/16 02/04/23 documented as of this encounter
--- OUTSIDE RECORDS SUMMARY | 2024-03-02 14:00 | XMS_ITS | Encounter Summary ---
Author Organization [facility] Address [facility] [place] [address] Care Team Providers Care Agronomy Internship Name Role Phone Deborah Quiroga ANURAG Primary Care Provider [phone] Encounter Details Date Type Department Care Team (Late st Contact Info) Description 12/04/2016 External Results [place]ology [place] [address] Teresa Dodson RN Social History Tobacco Use [...] 11:30 AM EST [place] [address] Magdalena Peralta MD [facility] [place] [address] 03/01/2025 4:15 PM EDT Office Visit Dermatology at [place] [address] [facility] [place] [address] Marek Bonilla MD [address] [facility], [place] [address] documented as of this encounter Procedures Procedure Name Priority Date/Time Associated Diagnosis Comments CBC (WITH DIFF) Routine 12/03/2016 11:35 AM EDT COMPREHENSIVE METABOLIC PANEL (NON-FASTING) Routine 12/03/2016 11:35 AM EDT documented in this encounter Results * (ABNORMAL) Comprehensive metabolic panel (non-fasting) (12/03/2016 11:35 AM EDT) Glucose Lvl 85(Externa l Lab) BUN 11(Externa l Lab) Creatinine 0.93(Exter nal Lab) Sodium 140(Insole Filler al Lab) Potassium 4.2(Insole Filler al Lab) Chloride 104(Insole Filler al Lab) Calcium 10.0(Exter nal Lab) Total Protein 8.1(Insole Filler al Lab) Albumin 3.5(Insole Filler al Lab) Total Bilirubin 0.25(Exter nal Lab) Alk Phos 96(Externa l Lab) AST 18(Externa l Lab) ALT 21(Externa l Lab) Blood specimen (specimen) 12/03/2016 11:35 AM EDT Historical Provider CHEMISTRY ORDERAB LES * (ABNORMAL) CBC (with Diff) (12/03/2016 11:35 AM EDT) WBC 1.61(EXTER NAL/ABN) 4.4 - 10.8 Hemoglobin 13.0(Exter nal Lab) Hematocrit 39.8(Exter nal Lab) Platelets 248(Insole Filler al Lab) Neutr Abs (ANC) 0.5(DIESEL INSPECTOR AL/ABN) Blood specimen (specimen) 12/03/2016 11:35 AM EDT Historical Provider HEMATOLOGY ORDERA BLES documented in this encounter Visit Diagnoses Not on filedocumented in this encounter Care Teams Agronomy Internship Relationship Specialty Start Date End Date Deborah Quiroga APRN PCP - General Family Medicine 03/24/16 02/04/23 documented as of this encounter
--- OUTSIDE RECORDS SUMMARY | 2024-03-02 14:00 | XMS_ITS | Encounter Summary ---
Author Organization [facility] Address [facility] [place] [address] Care Team Providers Care Demonstrator Knitting Name Role Phone Junaid Deborah Shileds APRN Primary Care Provider [phone] Encounter Details Date Type Department Care Team (Late st Contact Info) Description 03/04/2020 External Results Hematology [place] [address] [place], Bhumi Cornelius Social History Tobacco Use Types Packs/Day Years [...] 11:30 AM EST Office [place] [address] Magdalena Peralta MD [facility] [place] [address] 03/01/2025 4:15 PM EDT Office Visit Dermatology at [address] [place] [address] Marek Bonilla MD 580 [facility], [place] [address] documented as of this encounter Procedures Procedure Name Priority Date/Time Associated Diagnosis Comments LIPID PANEL (NO REFLEX) Routine 02/28/2020 7:45 AM EDT CBC (WITH DIFF) Routine 02/28/2020 7:45 AM EDT COMPREHENSIVE METABOLIC PANEL (NON-FASTING) Routine 02/28/2020 7:45 AM EDT documented in this encounter Results * (ABNORMAL) Lipid Panel (No Reflex) (02/28/2020 7:45 AM EDT) Chol, Total 179 <200 EXTERNAL LAB Triglycerides 254(NUTRITION ASSOCIATE AL/ABN) <150 EXTERNAL LAB HDL 50 40 - 60 EXTERNAL LAB LDL Cholesterol 79 <100 EXTERNAL LAB Blood specimen (specimen) 02/28/2020 7:45 AM EDT Historical Provider MD CHEMISTRY ORDERAB LES Performing Organization Address City/[facility] Co de Phone Number EXTERNAL LAB * (ABNORMAL) Comprehensive metabolic panel (non-fasting) (02/28/2020 7:45 AM EDT) Glucose Lvl 109(NUTRITION ASSOCIATE AL/ABN) 74 - 106 EXTERNAL LAB BUN [...] EDT Historical Provider MD CHEMISTRY ORDERAB LES EXTERNAL LAB * (ABNORMAL) CBC (with Diff) [...] on filedocumented in this encounter Care Teams Demonstrator Knitting Relationship Specialty Start Date End Date Deborah Quiroga APRN PCP - General Family Medicine 03/24/16 02/04/23 documented as of this encounter
--- OUTSIDE RECORDS SUMMARY | 2024-03-02 14:00 | XMS_ITS | Encounter Summary ---
Author Organization [facility] Address [facility] [place] [address] Care Team Providers Care Strip Picker Name Role Phone Deborah Quiroga APRN Primary Care Provider [phone] Encounter Details Date Type Department Care Team (Late st Contact Info) Description 06/18/2017 External Results Hematology [place] [address] Alexandrea Greenwood RN Neutropenia, unspecified type Social [...] EST Office [place] [address] Magdalena Peralta MD [facility] [place] [address] 03/01/2025 4:15 PM EDT Office Visit Dermatology at [address] [place] [address] Marek Bonilla MD 580 [facility], [place] [address] documented as of this encounter Procedures Procedure Name Priority Date/Time Associated Diagnosis Comments CBC (WITH DIFF) Routine 06/11/2017 1:19 PM EST Neutropenia, unspecified type COMPREHENSIVE METABOLIC PANEL (NON-FASTING) Routine 06/11/2017 1:19 PM EST Neutropenia, unspecified type documented in this encounter Results * Comprehensive metabolic panel (non-fasting) (06/11/2017 1:19 PM EST) Pathologist [facility] BUN 13 7 - 18 EXTERNAL [...] CHEMISTRY ORDERABL ES Performing Organization Address [facility] Co de Phone Number EXTERNAL LAB * (ABNORMAL) CBC (with Diff) (06/11/2017 1:19 PM EST) Pathologist [facility] WBC 2.28(EXTER NAL/ABN) 4.4 - 10.8 EXTERNAL LAB Hemoglobin 13.9 12.0 - 15.5 EXTERNAL LAB Hematocrit 43.2 36.0 - 46.0 EXTERNAL LAB Platelets 269 130 - 400 EXTERNAL LAB Neutr Abs (ANC) 0.63(EXTER NAL/ABN) 1.2 - 6.7 EXTERNAL LAB Blood specimen (specimen) 06/11/2017 1:19 PM EST Markel Borjas MD HEMATOLOGY ORDERAB LES Performing Organization Address City/[facility]/ZIP Co de Phone Number EXTERNAL LAB documented in this encounter Visit Diagnoses Diagnosis Neutropenia, unspecified type documented in this encounter Care Teams Strip Picker Relationship Specialty Start Date End Date Deborah Quiroga APRN PCP - General Family Medicine 03/24/16 02/04/23 documented as of this encounter
--- OUTSIDE RECORDS SUMMARY | 2024-03-02 14:00 | XMS_ITS | Encounter Summary ---
Author Organization [facility] [place] [address] Care Team Providers Care Manager Loan Name Role Phone Ashley Quirogan Sylvia ANURAG Primary Care Provider [phone] Reason for Referral * Consultation (Routine) - Specialty Diagnoses / Procedures Referred By Contact Referred To Contact Cardiac Rehabilitation Diagnoses S/P AVR Alirio Esparza MD [facility] DR [place] [address] Cardiac Rehab, [address] [place] [address] Referral ID Status Reason Start Date Expiration Date V isits Requested Visits Authorized [id number] Consult, Test & Treat 09/25/2016 03/24/2017 36 36 Reason for Visit * Auth/Cert Specialty Diagnoses / Procedures Referred By Crispin maxwell Referred To Contact Diagnoses Aortic stenosis Procedures PRO REPLACE AORT VALV, PROSTH VALV @REPLACE AORTIC VALVE, OPEN, W\CPB, W\PROSTHETIC VALVE (WRVU 41.32) Referral ID Status Reason Start Date Expiration Date Visits Re quested Visits Authorized [id number] 1 1 Encounter Details Date Type Department Care Team (Latest Contact Info) Description 09/21/2016 6:08 AM EST - 09/25/2016 4:33 PM EST Hospital Encounter Intermediate [place] [id number] Alirio Esparza MD [facility] DR [place] [address] Aortic valve stenosis, unspecified etiology; S/P AVR [...] Patient Age: 61 y.o. Birthdate: 1955 Language: Saudi Arabian Race: White Ethnicity: Not nor Admit Date: 09/21/2016 Discharge Date: 09/25/2016 Attending Physician: Alirio Esparza MD Follow-up Recommendations for Providers: Please continue routine management of cardiovascular risk factors including blood pressure, lipids,glucose, etc. Please note any changes to medications. Patient to follow-up with PCP, Deborah Quiroga APRN, in 1-2 weeks. Patient to follow-up with Volunteer Recruitment Coordinator, Dr. Antelmo Burrell, in two weeks. Patient to follow-up with Cardiac Surgery, Dr. Alirio Esparza, to be scheduled for before 10/19/2016, with CXR, EKG, and Echo. Inpatient Provider Contact Information: [facility] Section of Cardiac Surgery [facility] [place] [address] FAX [phone] Discharge Diagnoses (Hospital Problems) Primary Diagnoses: Secondary [...] 41.32) performed by Alirio Esparza MD at [facility] MAIN OR ??? Pro aortoplas for supravalv sten N/A 09/21/2016 @AORTOPLASTY FOR SUPRAVALVULAR STENOSIS (WRVU 29.33) performed by Alirio Esparza MD at [facility] MAIN OR Prior To Admission [...] Hospital Course: Purnima Thacker was admitted to [facility] on 09/21/2016 via the Same [...] Alirio Esparza and/or the Cardiac Surgery Physician Inspector Aluminum [employer] Team may be reached at . Antibiotic prophylaxis: You will need to take antibiotics prior to many invasive tests and treatments, such as dental cleaning, which should be done every 6 months. Your primary care physician or your dentist can prescribe this medication. Please refer to the card with the British Heart Association Guidelines for more information. You have been provided with 3 copies of this card. Keep one for your self. Give one to your primary care physician and one to your dentist. Please refer to the British Heart Association Guidelines for more information. Good [...] Dr. Alirio Jones. You may use a Palmetto Track or treadmill but avoid any pulling [...] friends, go to a movie, go to episcopalian, etc. Heavy activities: No hunting, skiing, jogging, [...] should resume a low fat, low cholesterol, British Heart Association Diet. Driving: No driving until [...] outpatient Phase 2 Cardiac Rehabilitation at [facility]. The patient agrees to a referral to this program. The referral will be sent at discharge and the patient should be contacted by the program within 1- 2 weeks from discharge. Future Appointments and Orders Future Appointments Provider Department Dept Phone 11/20/2016 11:30 AM Markel Borjas MD [facility] [phone] Future Orders Complete By Expires Echocardiogram Transthoracic([facility]) [XAD661 Custom] 10/18/2016 (Approximate) 09/18/2017 Process Instructions: If the Echocardiogram is to be PERFORMED in a location other than [place]--STOP and order [id number], Echocardiogram South/External. Scheduling Instructions: Questions: Is a Bubble Study requested?: No Does the patient have Congenital Heart Disease?: No Does patient require sedation?: None GA rationale: Should this service be billed to the research sponsor?: EKG 12 Lead [EKG1 Custom] 10/18/2016 (Approximate) 09/25/2017 Process Instructions: Scheduling Instructions: Questions: Which location will this be performed?: [place] Is a rhythm strip needed?: No If EKG Reason is Pre-op Evaluation, indicate diagnosis for surgery.: Should this service be billed to the research sponsor?: XR Chest PA & Lateral (Generic) [[id number] Custom] 10/18/2016 (Approximate) 09/25/2017 Process Instructions: Scheduling Instructions: Questions: Where will study be performed?: [facility]- Radiology Portable exam?: No Reason for exam and clinical history: s/p AVReplacement, patch annuloplasty 1 month f/u Other pertinent information: Stat read required?: Date of injury if applicable: Requested Time: Referral to Cardiac Rehab [RBD497 Custom] As directed Process Instructions: If no progress note charted, please enter Clinical details in comments. Scheduling Instructions: Questions: My question or request is: s/p AVR. Cardiac rehab at [facility] Referral to Home Health - at DISCHARGE [FFW0166 CPT(R)] As directed Process Instructions: Scheduling Instructions: Comments: DOCUMENTATION FOR VNA SERVICES (INCLUDING THOSE PATIENTS WITH MEDICARE COVERAGE REQUIRING HOME VNA SERVICES AND/OR HOSPICE SERVICES) PATIENT'S LOCATION: Purnima Thacker [address] [place] [phone] (home) No relevant phone numbers on file. Attending Ambulatory Care's Name: self In discussion with the attending physician, it is certified that this patient is under their care and that they, or a Nurse Practitioner, or Physician Inspector Aluminum Boat who is working directly with them, hada [...] for services as follows: HOME HEALTH AGENCY: [facility]. PHONE: [phone] FAX: [phone] RN orders: Cardiopulmonary assessment, incisional assessment, assess [...] issues please call the Cardiac SurgeryOffice at [phone] FOR MEDICARE ONLY: In discussion with the [...] noted. Questions: Agency name and contact information: [facility] VNA Patient location post discharge: home What services are requested: Registered Nurse Physical Therapy Occupational Therapy Start date: Responsible MD post discharge contact info: Arrangements for VNA/home care: As above. VN RN OR PCP TO PLEASE REMOVE CHEST TUBE SUTURES ON OR AFTER 09/30/16 Signed: Crispin Aranda PA-C 09/25/2016 [facility] Section of Cardiac Surgery [facility] [place] [address] FAX [phone] Date: 09/25/2016 CC: ANURAG Alford Caryn E, APRN [address] [place] [address] documented in this encounter Discharge Instructions * [...] Alirio Esparza and/or the Cardiac Surgery Physician Inspector [employer] Team may be reached at . Antibiotic prophylaxis: You will need to take antibiotics prior to many invasive tests and treatments, such as dental cleaning, which should be done every 6 months. Your primary care physician or your dentist can prescribe this medication. Please refer to the card with the British Heart Association Guidelines for more information. You have been provided with 3 copies of this card. Keep one for your self. Give one to your primary care physician and one to your dentist. Please refer to the British Heart Association Guidelines for more information. Good [...] Dr. Alirio Jones. You may use a Palmetto Track or treadmill but avoid any pulling [...] friends, go to a movie, go to episcopalian, etc. Heavy activities: No hunting, skiing, jogging, [...] should resume a low fat, low cholesterol, British Heart Association Diet. Driving: No driving until [...] outpatient Phase 2 Cardiac Rehabilitation at [facility]. The patient agrees to a [...] PM EST Cardiac Surgery Progress Note: ID: [id number] S/p AVR, patch aortoplasty POD#2. PMH of [...] Gas) No results found for: PHART, PO2ART, NCW6EEH Assessment/Plan: TPW out this am. (+) BM. [...] Signed: Crispin Aranda PA-C 09/24/2016 Team pager: [phone] after 5pm [facility] Section of Cardiac Surgery * Leonor Henson, SILK SPOOLER - 09/23/2016 10:48 AM EST Cardiac Surgery Progress Note: ID: [id number] s/p AVR, patch aortoplasty POD#2. PMH of Neutropenia, HLD, HTN, Depression, obesity,. EF- 60% 24 Hour Events: transferred from [facility] to [facility], doing well, no overnight [...] Gas) No results found for: PHART, PO2ART, UDT6AZM Assessment/Plan: s/p AVR, patch aortoplasty POD#2. PMH of Neutropenia, HLD, HTN, Depression, obesity, . Transferred from [facility] yesterday and doing well. Pathway. Will [...] Surgeon on rounds. Signed: Leonor Henson APRN [facility] Section of Cardiac Surgery Date: 09/23/2016 * Nico Palacios PA - 09/22/2016 9:56 AM EST Cardiac Surgery Progress Note: ID: [id number] s/p AVR, patch aortoplasty POD#1. PMH of [...] NT, ND, soft. Ext: Moves all extremities. Groom, well perfused. Incisions: C/D/I Tubes/Lines/Drains: PIV, leanna, [...] Attending Surgeon on rounds. Signed: EKATERINA KIM [facility] Section of Cardiac Surgery Date: [...] health, home with outpatient services [facility] Pager: [phone] Inpatient Physical Therapy Patient status, treatment interventions, and goals discussed with student. I am in agreement with all details and associated flowsheet rows as documented and was present for all aspects of the patient treatment session. Nery Jaramillo, VENEER JOINTER OPERATOR Pager [phone] Problem: Acute Rehab Services Goal & Intervention Plan Goal: Bed Mobility Goal Stand Alone Therapy Goal Outcome: Ongoing (Interventions Implemented as Appropriate) 09/22/16 16109/25/16 0947 Bed Mobility Goal Bed Mobility Goal, Time to Achieve 4 days -- Bed Mobility Goal, Activity Type scoot/bridge;supine to sit/sit to supine -- Bed Mobility Goal, [place] Level independent -- Bed Mobility Goal, Additional [...] Achieve 4 days -- Gait Training Goal, [place] Level independent -- Gait Training Goal, Distance [...] home with home health Lalitha BALTAZAR Pager: [phone] Inpatient Physical Therapy Patient status, treatment interventions, and goals discussed with student. I am in agreement with all details and associated flowsheet rows as documented and was present for all aspects of the patient treatment session. Nery Jaramillo PTA Pager [phone] Problem: Acute Rehab Services Goal & Intervention Plan Goal: Bed Mobility Goal Stand Alone Therapy Goal Outcome: Ongoing (Interventions Implemented as Appropriate) 09/22/16 1611 09/23/16 1412 Bed Mobility Goal Bed Mobility Goal, Time to Achieve 4 days -- Bed Mobility Goal, Activity Type scoot/bridge;supine to sit/sit to supine -- Bed Mobility Goal, [place] Level independent -- Bed Mobility Goal, Additional [...] Achieve 4 days -- Gait Training Goal, [place] Level independent -- Gait Training Goal, Distance [...] days -- Transfer Training Goal, Activity Type htb-oa-dazei/fgwhk-xq-ila;xdc-ed-aqidn/indbj-ll-xey -- Transfer Train Goal, [place] Level independent -- Transfer Training Goal, Additional Goal abides sternal precautions -- Transfer Training Goal, Outcome -- goal met * Consult Note - Jana Crenshaw RN - 09/23/2016 9:41 AM EST [facility] [place] Purnima Thacker was seen today regarding participation in the outpatient Phase 2 Cardiac Rehabilitation at [facility]. The patient agrees to a referral to this program. The referral will be sent at discharge and the patient should be contacted by the Program within 1- 2 weeks from discharge. * Plan of Care - Marcie Frazier RN - 09/23/2016 3:51 AM EST Problem: Patient Care Overview Goal: Plan of Care Review Outcome: Ongoing (Interventions Implemented as Appropriate) 09/23/16 0917 Coping/Psychosocial Plan Of Care Reviewed With patient [...] Another Service: (cardiac rehab) NICOLE HERNANDEZ, PT Pager:[phone] Inpatient Physical Therapy Problem: Acute Rehab Services Goal & Intervention Plan Goal: Bed Mobility Goal Stand Alone Therapy Goal Outcome: Ongoing (Interventions Implemented as Appropriate) 09/22/16 1611 Bed Mobility Goal Bed Mobility Goal, Time to Achieve 4 days Bed Mobility Goal, Activity Type scoot/bridge;supine to sit/sit to supine Bed Mobility Goal, [place] Level independent Bed Mobility Goal, Additional Goal able to abide sternal precautions during transfers Goal: Gait Training Goal Stand Alone Therapy Goal Outcome: Ongoing (Interventions Implemented as Appropriate) 09/22/16 1611 Gait Training Goal Gait Training Goal, Date Established 09/22/16 Gait Training Goal, Time to Achieve 4 days Gait Training Goal, [place] Level independent Gait Training Goal, Distance to Achieve ascend and descends 2 steps independently Goal: Goal Transfer Training Stand Alone Therapy Goal Outcome: Ongoing (Interventions Implemented as Appropriate) 09/22/16 1611 Goal Transfer Training Transfer Training Goal, Time to Achieve 4 days Transfer Training Goal, Activity Type fzj-pt-vfiza/uixfj-vq-moq;egx-ga-vrwyy/qakzs-vw-flo Transfer Train Goal, [place] Level independent Transfer Training Goal, Additional Goal [...] of completing AD's at home, chooses her qeapas-qy-gip, Martha Thacker (home) for her DPOAH, 2nd choice in friend, [place] Current Coping/Education/Information Needs: patient sitting up in recliner, awake, alert, calmly answers questions appropriately, demonstrates understanding of her current health situation. [facility] [place] [facility]. Current Functional Ability: 1 assist, [...] close by, [place] & [place], and her wfebfo-dz-mli Martha Thacker who she has chosen to be her DPOA. Also has a friend Nitesh Leroy who lives in [place], [place], also her DPOAH choice. Behavioral Health History: none on file in [facility] Substance Use/Abuse: none on file in [facility] Other Pertinent/Service Specific Information: none Health/Prescription Coverage: Primary Insurance: [employer] Secondary Insurance: none Prescription Coverage: yes, per patient no issues Preferred Pharmacy: ?? Other: none Primary Care Provider: Deborah Quiroga APRN [phone] Patient/Caregiver Goals of Treatment: per medical team recommendations at discharge for CT surgery Potential Needs for Transition of Care: Rehab/SNF: TBD Home Health: TBD DME: no Dialysis: no Community Resources: non3 Transportation: ride home with a friend Other: none Anticipated Barriers to Discharge/Special Considerations: none anticipated at this time Plan: patient will need VNA services at discharge. 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 A letter describing our affiliations was reviewed with them and they were educated about their right to choose where referrals are placed. Patient requests referral to: [facility]. PHONE: [phone] FAX: [phone] Expected date of discharge: Fri/Sat? CM called VNA to confirm referral, talked with VALDO Bunn/intake who stated she was familiar w/patient & would monitor her progress through curaspan. Referral routed to the Burrer Machine for matching with agency/vendor and to provide any required information. A member of the Care Management team will continue to monitor progress, follow for continuity of care and assist with transition of care planning. Amanda Moreno RN Pager: [phone] * Op Note - Alirio Esparza MD - 09/21/2016 12:53 PM EST 09/23/2016 Purnima Thacker 1955 [id number] Preoperative Diagnosis: Symptomatic aortic stenosis Postoperative Diagnosis: Symptomatic aortic stenosis Procedure: Aortic valve replacement: Bovine Pericardial 25 mm Surgeon: Alirio Esparza M.D. Inspector Aluminum Boat: Philip BALL Anesthesia: General endotracheal anesthesia Drains: [...] Operative Note Patient Name: Purnima Thacker : [id number] MR#: [id number] Case Date: 09/21/2016 Surgeon: Surgeon(s) and Role: * Alirio Esparza MD - Primary * Nico Palacios PA - Physician Inspector Aluminum Boat Preoperative diagnosis: Postoperative diagnosis: Procedure(s) (LRB): @REPLACE [...] 11:30 AM EST [place] [address] Magdalena Peralta MD [facility] [place] [address] 03/01/2025 4:15 PM EDT Office Visit Dermatology at [address] [place] [address] Marek Bonilla MD [address] [place] [address], [place] [address] Scheduled Orders Name Type Priority Associated Diagnoses [...] IMPLANTABLE DEVICES SCAN 09/26/2016 12:00 AM EST RESEARCH CHEMIST SCAN 09/26/2016 12:00 AM EST POTASSIUM Routine [...] Routine 09/22/2016 4:00 AM EST CARDIAC ENZYMES ([facility] [place] Routine 09/22/2016 4:00 AM EST CREATININE Routine [...] SCAN EXT O RDR/RSLT * SCAN DOC: RESEARCH CHEMIST (09/26/2016 12:00 AM EST) Anatomical Region Laterality Modality Other Narrative 09/26/2016 12:00 AM EST Ordered by an unspecified provider. Scanning Provider MEDIA MGR SCAN EXT O RDR/RSLT * Potassium (09/25/2016 4:32 AM EST) Pathologist [facility] Potassium 4.4 3.5 - 5.0 mmol/L [facility] [place] [address] * (ABNORMAL) Differential, Automated (09/24/2016 9:56 AM EST) Neutrophils % 76.8 % [facility] Neutr Abs (ANC) 7.79(H) 1.70 - 6.10 x10(3)/mc L [facility] Lymphocytes % 11.1 % [facility] Lymphocytes Abs 1.1 0.9 - 3.2 x10(3)/mc L [facility] Monocytes % 8.5 % [facility] Monocyte Abs 0.9 0.3 - 0.9 x10(3)/mc L [facility] Eosinophils % 0.5 % [facility] Eosinophils Abs 0.0 0.0 - 0.4 x10(3)/[facility] Basophils % 0.2 % [facility] Basophils Abs 0.0 0.0 - 0.1 x10(3)/[facility] Immature Gran % 2.90 % [facility] Comment: Immature granulocytes(IG's)percentage and absolute count will include metamyelocytes, myelocytes, and promyelocytes. Blood smears from CBCs yielding IG's will be scanned manually for concordance. If this scan disagrees with the automated IG or if promyelocytes are noted, a manual differential will be performed. Amanda Gran Abs 0.29(H) 0.00 - 0.04 x10(3)/[facility] Blood specimen (specimen) 09/24/2016 9:56 AM EST 09/24/2016 10:04 AM EST Narrative Resulting Agency Comment Spec In Lab Alirio Esparza MD HEMATOLOGY ORDERABL ES [facility] [place] [address] * (ABNORMAL) Hemogram (09/24/2016 9:56 AM EST) WBC 10.1(H) 4.0 - 9.5 x10(3)/[facility] LABORATORY RBC 2.87(L) 4.00 - 5.21 x10(6)/[facility]OR[facility]ORY Hemoglobin 9.4(L) 11.7 - 15.5 gm/dL [facility] Hematocrit 28.3(L) 35.7 - 45.8 % [facility] MCV 98.6(H) 82.6 - 94.4 fL [facility] MCH 32.8(H) 27.1 - 32.0 pg [facility] MCHC 33.2 31.7 - 35.0 gm/dL [facility] Platelets 141(L) 145 - 357 x10(3)/[facility] LABORATORY RDWSD 45.0 37.0 - 46.0 fL [facility] RDWCV 12.6 11.5 - 14.1 % [facility] MPV 9.4 7.6 - 12.9 fL [facility] nRBC % Auto 1.1 % [facility] nRBC Abs Auto 0.110(H) 0.000 - 0.000 x10(3)/[facility] Blood specimen (specimen) 09/24/2016 9:56 AM EST 09/24/2016 10:04 AM EST Narrative Resulting Agency Comment Spec In Lab Alirio Esparza MD HEMATOLOGY ORDERABL ES [facility] [place] [address] * (ABNORMAL) Basic Metabolic Panel (non-fasting) (09/24/2016 9:56 AM EST) Glucose Lvl 111 65 - 199 mg/dL [facility] Comment:Diabetes: >=200 mg/d L plus symptoms BUN 23(H) 8 - 18 mg/dL [facility] Comment:result rechecked-ART Creatinine 0.89 0.70 - 1.20 mg/dL [facility] Comment: Please note that the pediatric reference intervals supplied above were not validated at [facility]. Results from pediatric patients should be interpreted in conjunction to the patient's age, height and muscle mass. Sodium 138 135 - 145 mmol/L [facility] questions. Chloride 98 98 - 107 mmol/L [facility] CO2 26 22 - 31 mmol/L [facility] Anion Gap 14 5 - 15 mmol/L [facility] Calcium 9.1 8.5 - 10.5 mg/dL [facility] [...] the following links into your internet browser. [email or web address] Blood specimen (specimen) 09/24/2016 9:56 AM EST 09/24/2016 10:04 AM EST Narrative Resulting Agency Comment Spec In Lab Alirio Esparza MD CHEMISTRY ORDERABLE S [facility] [place] [address] * XR Chest PA & Lateral (Generic) [...] minimal retrocardiac atelectasis, consistentwith anticipated postoperative changes. Alriio Esparza MD IMG DX ORDERABLES * Potassium (09/23/2016 3:31 AM EST) Potassium 4.5 3.5 - 5.0 mmol/L [facility] S [facility] [place] [address] * POCT Glucose (09/22/2016 8:17 AM EST) POC Glucose 131 65 - 199 mg/dL [facility] Comment: Supplemental ranges: <140 mg/dL before meals <180 mg/dL all other times of the day Blood specimen (specimen) 09/22/2016 8:17 AM EST 09/22/2016 8:17 AM EST Narrative Authorizing Provider Result Slade Esparza MD POINT OF CARE TEST ORDERABLES [facility] [place] [address] * POCT Glucose (09/22/2016 4:01 AM EST) POC Glucose 135 65 - 199 mg/dL [facility] Comment: Supplemental ranges: <140 mg/dL before meals <180 mg/dL all other times of the day Blood specimen (specimen) 09/22/2016 4:01 AM EST 09/22/2016 4:01 AM EST Alirio Esparza MD POINT OF CARE TEST ORDERABLES Performing Organization Address [facility] Co de Phone Number [facility] [place] [address] * Scan, Peripheral Blood (09/22/2016 4:00 AM EST) Pathologist [facility] Plat Estimate Normal [facility] RBC Morphology Abnormal [facility] Macrocytes 1-5 /HPF [facility] Giant Platelets Less than 1 /HPF [facility] Blood specimen (specimen) 09/22/2016 4:00 AM EST 09/22/2016 4:34 AM EST Narrative Resulting Agency Comment Spec In Lab Alirio Esparza MD HEMATOLOGY ORDERABL ES Performing Organization Address [facility] Co de Phone Number [facility] [place] [address] * Electrolytes panel (09/22/2016 4:00 AM EST) Pathologist [facility] Sodium 145 135 - 145 mmol/L [facility] Potassium 4.4 3.5 - 5.0 mmol/L [facility] Comment: Please note: ??Patients with WBC >100,000 may have falsely elevated Potassium levels. ??For accurate Potassium quantification in these patients send serum separator tube (gold top) for subsequent determinations. ??Contact the Clinical Chemistry Laboratory if there are any questions. Chloride 107 98 - 107 mmol/L [facility] CO2 24 22 - 31 mmol/L [facility] Anion Gap 14 5 - 15 mmol/L [facility] Blood specimen (specimen) Venous Draw / Unknown 09/22/2016 4:00 AM EST 09/22/2016 4:34 AM EST Narrative Resulting Agency Comment Spec In Lab Alirio Esparza MD CHEMISTRY ORDERABLE S Performing Organization Address City/[facility]/ZIP Co de Phone Number [facility] [place] [address] * (ABNORMAL) Differential, Automated (09/22/2016 4:00 AM EST) Neutrophils % 70.9 % [facility] Neutr Abs (ANC) 5.33 1.70 - 6.10 x10(3)/mc L [facility] Lymphocytes % 9.1 % [facility] Lymphocytes Abs 0.7(L) 0.9 - 3.2 x10(3)/mc L [facility] Monocytes % 18.0 % [facility] Monocyte Abs 1.4(H) 0.3 - 0.9 x10(3)/mc L [facility] Eosinophils % 0.0 % [facility] Eosinophils Abs 0.0 0.0 - 0.4 x10(3)/ L [facility] Basophils % 0.1 % [facility] Basophils Abs 0.0 0.0 - 0.1 x10(3)/mc L [facility] Immature Gran % 1.90 % [facility] Comment: Immature granulocytes(IG's)percentage and absolute count will include metamyelocytes, myelocytes, and promyelocytes. Blood smears from CBCs yielding IG's will be scanned manually for concordance. If this scan disagrees with the automated IG or if promyelocytes are noted, a manual differential will be performed. Amanda Gran Abs 0.14(H) 0.00 - 0.04 x10(3)/ L [facility] Blood specimen (specimen) 09/22/2016 4:00 AM EST 09/22/2016 4:34 AM EST Narrative Resulting Agency Comment Spec In Lab Alirio Esparza MD HEMATOLOGY ORDERABL ES Performing Organization Address City/[facility]/ZIP Co de Phone Number [facility] [place] [address] * (ABNORMAL) Hemogram (09/22/2016 4:00 AM EST) [facility] WBC 7.5 4.0 - 9.5 x10(3)/[facility] RBC 2.93(L) 4.00 - 5.21 x10(6)/[facility] Hemoglobin 9.2(L) 11.7 - 15.5 gm/dL [facility] Hematocrit 28.0(L) 35.7 - 45.8 % [facility] MCV 95.6(H) 82.6 - 94.4 [facility] MCH 31.4 27.1 - 32.0 pg [facility] MCHC 32.9 31.7 - 35.0 gm/dL [facility] Platelets 161 145 - 357 x10(3)/[facility] RDWSD 44.0 37.0 - 46.0 [facility] RDWCV 12.6 11.5 - 14.1 % [facility] MPV 9.3 7.6 - 12.9 [facility] nRBC % Auto 0.3 % [facility] nRBC Abs Auto 0.020(H) 0.000 - 0.000 x10(3)/[facility] Blood specimen (specimen) 09/22/2016 4:00 AM EST 09/22/2016 4:34 AM EST Narrative Resulting Agency Comment Spec In Lab Alirio Esparza MD HEMATOLOGY ORDERABL ES Performing Organization Address City/[facility]/ZIP Co de Phone Number [facility] [place] [address] * (ABNORMAL) Cardiac Enzymes (09/22/2016 4:00 AM EST) [facility] Troponin-T 0.13(H) <=0.03 ng/mL [facility] Comment: 0.03 ng/mL: Represents the 99th percentile upper reference limit for normals. >0.03 ng/mL: Elevated cardiac troponin T level indicative of myocardial damage. Diagnosis of acute, evolving or recent NE requires a typical rise and gradual fall [...] consensus document of the Joint Society of Cardiology/British College of Cardiology Committee for the redefinition of myocardial infarction. ??Journal of the British College of Cardiology 2000; 36: 959-969] CK, Total 338(H) 0 - 160 unit/L [facility] Blood specimen (specimen) 09/22/2016 4:00 AM EST 09/22/2016 4:34 AM EST Narrative Resulting Agency Comment Spec In Lab Alirio Esparza MD CHEMISTRY ORDERABLE S Performing Organization Address City/State/[facility] Co de Phone Number [facility] [place] [address] * (ABNORMAL) Glucose, fasting (09/22/2016 4:00 AM EST) Glucose Fasting 137(H) 65 - 99 mg/dL [facility] Comment: ?Fasting* Glucose [...] of Diabetes Mellitus, Position Statement from the [employer] Diabetes Association. ??Diabetes Care, Volume 33, Supplement 1, Aug 2009 Blood specimen (specimen) 09/22/2016 4:00 AM EST 09/22/2016 4:34 AM EST Narrative Resulting Agency Comment Spec In Lab Alirio Esparza MD CHEMISTRY ORDERABLE S Performing Organization Address [facility] Co de Phone Number [facility] [place] [address] * (ABNORMAL) Creatinine (09/22/2016 4:00 AM EST) Creatinine 0.69(L) 0.70 - 1.20 mg/dL [facility] Comment: Please note that the pediatric reference intervals supplied above were not validated at [facility]. Results from [...] the following links into your internet browser. [email or web address] Blood specimen (specimen) 09/22/2016 4:00 AM EST 09/22/2016 4:34 AM EST Narrative Resulting Agency Comment Spec In Lab Alirio Esparza MD CHEMISTRY ORDERABLE S Performing Organization Address [facility] Co de Phone Number [facility] [place] [address] * BUN (09/22/2016 4:00 AM EST) BUN 10 8 - 18 mg/dL [facility] Blood specimen (specimen) 09/22/2016 4:00 AM EST 09/22/2016 4:34 AM EST Narrative Resulting Agency Comment Spec In Lab Alirio Esparza MD CHEMISTRY ORDERABLE S Performing Organization Address [facility] Co de Phone Number [facility] [place] [address] * POCT Glucose (09/21/2016 9:59 PM EST) POC Glucose 146 65 - 199 mg/dL [facility] Comment: Supplemental ranges: <140 mg/dL before meals <180 mg/dL all other times of the day Blood specimen (specimen) 09/21/2016 9:59 PM EST 09/21/2016 9:59 PM EST Alirio Esparza MD POINT OF CARE TEST ORDERABLES Performing Organization Address [facility] Co de Phone Number [facility] [place] [address] * POCT Glucose (09/21/2016 7:26 PM EST) POC Glucose 152 65 - 199 mg/dL [facility] Comment: Supplemental ranges: <140 mg/dL before meals <180 mg/dL all other times of the day Blood specimen (specimen) 09/21/2016 7:26 PM EST 09/21/2016 7:26 PM EST Alirio Esparza MD POINT OF CARE TEST ORDERABLES Performing Organization Address [facility] Co de Phone Number [facility] [place] [address] * POCT Glucose (09/21/2016 6:00 PM EST) POC Glucose 146 65 - 199 mg/dL [facility] Comment: Supplemental ranges: <140 mg/dL before meals <180 mg/dL all other times of the day Blood specimen (specimen) 09/21/2016 6:00 PM EST 09/21/2016 6:00 PM EST Alirio Esparza MD POINT OF CARE TEST ORDERABLES [facility] [place] [address] * (ABNORMAL) BLOOD GAS 2 ARTERIAL (09/21/2016 4:42 PM EST) pH Art 7.35(L) 7.35 - 7.45 [facility] pCO2 Art 48(H) 35 - 45 mmHg [facility] pO2 Art 108(H) 85 - 104 mmHg [facility] HCO3 Art 26.0 20.0 - 26.0 mmol/L [facility] BE Art 0.5 -3.0 - 3.0 mmol/L [facility] Hgb Blood Gas 10.4(L) 11.7 - 15.5 gm/dL [facility] O2HB Art 96.2 94.0 - 97.0 % [facility] COHB Art 0.0 % [facility] Comment: Nonsmokers: 0.5-1.5% COHB Smokers: Variable, but usually less than 10% Toxic: 20-30% COHB Lethal: Greater than 60% COHB METHB Art 0.7 <=1.5 % [facility] Na Whole Blood 139 135 - 145 mmol/L [facility] K Whole Blood 4.2 3.5 - 5.0 mmol/L [facility] Comment: Please note: Patients with WBC >100,000 may have falsely elevated Potassium levels. Contact the Clinical Chemistry Laboratory if there are any questions. ICa Whole Blood 1.13(L) 1.15 - 1.33 mmol/L [facility] Comment: Note: ??Total bilirubin higher than 20 mg/dL may lead to falsely low ionized calcium. CL Whole Blood 106 98 - 107 mmol/L [facility] Gluc Whole Bld 147 65 - 199 mg/dL [facility] Comment:Diabetes: >=200 mg/d L plus symptoms. Lactate WB 1.2 0.5 - 2.2 mmol/L [facility] FIO2 Art 40 % [facility] PF Ratio Art 270 [facility] Blood specimen (specimen) 09/21/2016 4:42 PM EST 09/21/2016 4:42 PM EST Alirio Esparza MD CHEMISTRY ORDERABLE S Performing Organization Address [facility]/ZIP Co de Phone Number [facility] [place] [address] * POCT Glucose (09/21/2016 4:07 PM EST) POC Glucose 150 65 - 199 mg/dL [facility] Comment: Supplemental ranges: <140 mg/dL before meals <180 mg/dL all other times of the day Blood specimen (specimen) 09/21/2016 4:07 PM EST 09/21/2016 4:07 PM EST Alirio Esparza MD POINT OF CARE TEST ORDERABLES Performing Organization Address [facility] Co de Phone Number [facility] [place] [address] * (ABNORMAL) Hemoglobin (09/21/2016 4:05 PM EST) Hemoglobin 9.9(L) 11.7 - 15.5 gm/dL [facility] Blood specimen (specimen) 09/21/2016 4:05 PM EST 09/21/2016 4:20 PM EST Narrative Resulting Agency Comment Spec In Lab Alirio Esparza MD HEMATOLOGY ORDERABL ES Performing Organization Address [facility] Co de Phone Number [facility] [place] [address] * Potassium (09/21/2016 4:05 PM EST) Potassium 4.6 3.5 - 5.0 mmol/L [facility] MD CHEMISTRY ORDERABLE S Performing Organization Address City/[facility] Co de Phone Number [facility] [place] [address] * POCT Glucose (09/21/2016 2:52 PM EST) POC Glucose 117 65 - 199 mg/dL [facility] Comment: Supplemental ranges: <140 mg/dL before meals <180 mg/dL all other times of the day Blood specimen (specimen) 09/21/2016 2:52 PM EST 09/21/2016 2:52 PM EST Alirio Esparza MD POINT OF CARE TEST ORDERABLES Performing Organization Address [facility] Co de Phone Number [facility] [place] [address] * POCT Glucose (09/21/2016 1:51 PM EST) POC Glucose 108 65 - 199 mg/dL [facility] Comment: Supplemental ranges: <140 mg/dL before meals <180 mg/dL all other times of the day Blood specimen (specimen) 09/21/2016 1:51 PM EST 09/21/2016 1:51 PM EST Alirio Esparza MD POINT OF CARE TEST ORDERABLES Performing Organization Address [facility] Co de Phone Number [facility] [place] [address] * POCT Glucose (09/21/2016 12:54 PM EST) POC Glucose 128 65 - 199 mg/dL [facility] Comment: Supplemental ranges: <140 mg/dL before meals <180 mg/dL all other times of the day Blood specimen (specimen) 09/21/2016 12:54 PM EST 09/21/2016 12:54 PM EST Alirio Esparza MD POINT OF CARE TEST ORDERABLES Performing Organization Address [facility] Co de Phone Number [facility] [place] [address] * EKG 12 Lead (09/21/2016 12:26 PM EST) Ventricular rate 87 BPM MUSE SYSTEM Atrial Rate 87 BPM MUSE SYSTEM P-R Interval 256 ms MUSE SYSTEM QRS Duration 90 ms MUSE SYSTEM Q-T Interval 406 ms MUSE SYSTEM QTC Calculated (Bezet) 488 ms MUSE SYSTEM Calculated P [place] 24 degrees MUSE SYSTEM Calculated R [place] 21 degrees MUSE SYSTEM Calculated T [place] -5 degrees MUSE SYSTEM INTERPRETATION Sinus rhythm with 1st degree A-V block Nonspecific T wave abnormality Prolonged QT Abnormal ECG When compared with ECG of 19-MAY-2016 11:43, [place] interval has increased T wave inversion now evident in inferior and midanterior leads Confirmed by MD FRANKLYN, MARLEN ([id number]) on 09/21/2016 1:40:59 PM MUSE SYSTEM 09/21/2016 12:2 6 PM EST 09/21/2016 1:40 PM EST Alirio Esparza MD ECG ORDERABLES Performing Organization Address [facility] Co de Phone Number MUSE [...] course of the esophagus and below the [id number]. There is a right IJ PA catheter [...] the course of theesophagus and below the [id number]. There is a right IJ PA catheter [...] EST) pH Art 7.41 7.35 - 7.45 [facility] pCO2 Art 42 35 - 45 mmHg [facility] pO2 Art 356(H) 85 - 104 mmHg [facility] HCO3 Art 26.2(H) 20.0 - 26.0 mmol/L [facility] BE Art 1.6 -3.0 - 3.0 mmol/L [facility] Hgb Blood Gas 10.7(L) 11.7 - 15.5 gm/dL [facility] O2HB Art 98.1(H) 94.0 - 97.0 % [facility] COHB Art 0.3 % [facility] Comment: Nonsmokers: 0.5-1.5% COHB Smokers: Variable, but usually less than 10% Toxic: 20-30% COHB Lethal: Greater than 60% COHB METHB Art 0.8 <=1.5 % [facility] Na Whole Blood 140 135 - 145 mmol/L [facility] K Whole Blood 3.8 3.5 - 5.0 mmol/L [facility] Comment: Please note: Patients with WBC >100,000 may have falsely elevated Potassium levels. Contact the Clinical Chemistry Laboratory if there are any questions. ICa Whole Blood 1.15(L) 1.15 - 1.33 mmol/L [facility] Comment: Note: ??Total bilirubin higher than 20 mg/dL may lead to falsely low ionized calcium. CL Whole Blood 106 98 - 107 mmol/L [facility] Gluc Whole Bld 135 65 - 199 mg/dL [facility] Comment:Diabetes: >=200 mg/d L plus symptoms. Lactate WB 2.2 0.5 - 2.2 mmol/L [facility] FIO2 Art 100 % [facility] PF Ratio Art 356 [facility] Blood specimen (specimen) 09/21/2016 12:20 PM EST 09/21/2016 12:20 PM EST Alirio Esparza MD CHEMISTRY ORDERABLE S [facility] [place] [address] * (ABNORMAL) BLOOD GAS 2 ARTERIAL (09/21/2016 10:54 AM EST) pH Art 7.43 7.35 - 7.45 [facility] pCO2 Art 40 35 - 45 mmHg [facility] pO2 Art 297(H) 85 - 104 mmHg [facility] HCO3 Art 26.0 20.0 - 26.0 mmol/L [facility] BE Art 1.6 -3.0 - 3.0 mmol/L [facility] Hgb Blood Gas 8.6(L) 11.7 - 15.5 gm/dL [facility] O2HB Art 98.6(H) 94.0 - 97.0 % [facility] COHB Art 0.5 % [facility] Comment: Nonsmokers: 0.5-1.5% COHB Smokers: Variable, but usually less than 10% Toxic: 20-30% COHB Lethal: Greater than 60% COHB METHB Art 0.3 <=1.5 % [facility] Na Whole Blood 134(L) 135 - 145 mmol/L [facility] K Whole Blood 4.5 3.5 - 5.0 mmol/L [facility] Comment: Please note: Patients with WBC >100,000 may have falsely elevated Potassium levels. Contact the Clinical Chemistry Laboratory if there are any questions. ICa Whole Blood 1.16 1.15 - 1.33 mmol/L [facility] Comment: Note: ??Total bilirubin higher than 20 mg/dL may lead to falsely low ionized calcium. CL Whole Blood 104 98 - 107 mmol/L [facility] Gluc Whole Bld 240(H) 65 - 199 mg/dL [facility] Comment:Diabetes: >=200 mg/d L plus symptoms. Lactate WB 2.4(H) 0.5 - 2.2 mmol/L [facility] FIO2 Art 95 % [facility] Flow Art 0.7 LPM [facility] PF Ratio Art 313 [facility] Temp Art 36.7 Celsius [facility] Blood specimen (specimen) 09/21/2016 10:54 AM EST 09/21/2016 10:54 AM EST Alirio Esparza MD CHEMISTRY ORDERABLE S [facility] [place] [address] * Thrombin time (09/21/2016 10:50 AM EST) Thrombin Time 19 15 - 20 sec [facility] Comment: A prolongation [...] MD HEMATOLOGY ORDERABLE S Performing Organization Address City/[facility] Co de Phone Number [facility] [place] [address] * Fibrinogen (09/21/2016 10:50 AM EST) Fibrinogen 228 180 - 510 mg/dL [facility] Comment: Called by: JONNATHAN, Read back by: MICHELLE ALEJANDRE_, Date/Time:09/21/16 11:11. A fibrinogen level >100 mg/dL is adequate for hemostasis in most patients without underlying bleeding disorders. Blood specimen (specimen) 09/21/2016 10:50 AM EST 09/21/2016 10:56 AM EST Narrative Resulting Agency Comment Spec In Lab Luis Enrique Quarles MD HEMATOLOGY ORDERABLE S Performing Organization Address [facility] Co de Phone Number [facility] [place] [address] * APTT (09/21/2016 10:50 AM EST) PTT 32 25 - 35 sec [facility] Comment: The recommended therapeutic range for full dose, unfractionated heparin [place] [facility] [place] 80 ? 114 [...] MD HEMATOLOGY ORDERABLE S Performing Organization Address City/[facility] Co de Phone Number [facility] [place] [address] * (ABNORMAL) Prothrombin Time (09/21/2016 10:50 AM EST) PT 18.7(H) 12.0 - 15.0 sec [facility] Comment: An INR [...] clinical circumstances. INR 1.5(H) 0.9 - 1.1 [facility] Blood specimen (specimen) 09/21/2016 10:50 AM EST 09/21/2016 10:56 AM EST Narrative Resulting Agency Comment Spec In Lab Luis Enrique Quarles MD HEMATOLOGY ORDERABLE S Performing Organization Address City/State/[facility] Co de Phone Number [facility] [place] [address] * (ABNORMAL) Hemogram (09/21/2016 10:50 AM EST) WBC 14.7(H) 4.0 - 9.5 x10(3)/[facility] RBC 2.40(L) 4.00 - 5.21 x10(6)/[facility] Hemoglobin 7.9(L) 11.7 - 15.5 gm/dL [facility] Hematocrit 23.2(L) 35.7 - 45.8 % [facility] Comment: This result has been called to MICHELLE GRIGSBY by ASHU MORENO on 09 21 2016 at 1102, and has been read back. MCV 96.7(H) 82.6 - 94.4 fL [facility] MCH 32.9(H) 27.1 - 32.0 pg [facility] MCHC 34.1 31.7 - 35.0 gm/dL [facility] Platelets 117(L) 145 - 357 x10(3)/[facility] RDWSD 42.6 37.0 - 46.0 [facility] RDWCV 12.1 11.5 - 14.1 % [facility] MPV 9.2 7.6 - 12.9 [facility] nRBC % Auto 0.1 % [facility] nRBC Abs Auto 0.020(H) 0.000 - 0.000 x10(3)/[facility] Blood specimen (specimen) 09/21/2016 10:50 AM EST 09/21/2016 10:56 AM EST Narrative Resulting Agency Comment Spec In Lab Luis Enrique Quarles MD HEMATOLOGY ORDERABLE S Performing Organization Address City/[facility] Co de Phone Number [facility] [place] [address] * Prepare Platelets, Apheresis (09/21/2016 10:30 AM EST) Dispensed? Yes [facility] Blood specimen (specimen) 09/21/2016 10:30 AM EST 09/21/2016 10:28 AM EST Alirio Esparza MD BLOOD BANK PRODUCT ORDERABLES Performing Organization Address [facility] Co de Phone Number [facility] [place] [address] * (ABNORMAL) BLOOD GAS 2 ARTERIAL (09/21/2016 10:05 AM EST) pH Art 7.33(L) 7.35 - 7.45 [facility] pCO2 Art 54(Critic al) 35 - 45 mmHg [facility] Comment:Noted by reed or wind instrument repairer. pO2 Art 218(H) 85 - 104 mmHg [facility] HCO3 Art 27.9(H) 20.0 - 26.0 mmol/L [facility] BE Art 2.0 -3.0 - 3.0 mmol/L [facility] Hgb Blood Gas 8.6(L) 11.7 - 15.5 gm/dL [facility] O2HB Art 98.4(H) 94.0 - 97.0 % [facility] COHB Art 0.5 % [facility] Comment: Nonsmokers: 0.5-1.5% COHB Smokers: Variable, but usually less than 10% Toxic: 20-30% COHB Lethal: Greater than 60% COHB METHB Art 0.3 <=1.5 % [facility] Na Whole Blood 129(L) 135 - 145 mmol/L [facility] K Whole Blood 6.2(Criti gabrielle) 3.5 - 5.0 mmol/L [facility] Comment: Noted by reed or wind instrument repairer. Please note: Patients with WBC >100,000 may have falsely elevated Potassium levels. Contact the Clinical Chemistry Laboratory if there are any questions. ICa Whole Blood 0.95(L) 1.15 - 1.33 mmol/L [facility] Comment: Note: ??Total bilirubin higher than 20 mg/dL may lead to falsely low ionized calcium. CL Whole Blood 100 98 - 107 mmol/L [facility] Gluc Whole Bld 289(H) 65 - 199 mg/dL [facility] Comment:Diabetes: >=200 mg/d L plus symptoms. Lactate WB 2.2 0.5 - 2.2 mmol/L [facility] [facility] Temp Art 37.0 Celsius [facility] Blood specimen (specimen) 09/21/2016 10:05 AM EST 09/21/2016 10:05 AM EST Alirio Esparza MD CHEMISTRY ORDERABLE S [facility] [place] [address] * (ABNORMAL) BLOOD GAS 2 ARTERIAL (09/21/2016 9:44 AM EST) pH Art 7.22(Criti gabrielle) 7.35 - 7.45 [facility] Comment:Noted by reed or wind instrument repairer. pCO2 Art 70(Critica l) 35 - 45 mmHg [facility] Comment:Noted by reed or wind instrument repairer. pO2 Art 224(H) 85 - 104 mmHg [facility] HCO3 Art 27.8(H) 20.0 - 26.0 mmol/L [facility] BE Art 0.0 -3.0 - 3.0 mmol/L [facility] Hgb Blood Gas 8.7(L) 11.7 - 15.5 gm/dL [facility] O2HB Art 98.5(H) 94.0 - 97.0 % [facility] COHB Art 0.6 % [facility] Comment: Nonsmokers: 0.5-1.5% COHB Smokers: Variable, but usually less than 10% Toxic: 20-30% COHB Lethal: Greater than 60% COHB METHB Art 0.3 <=1.5 % [facility] Na Whole Blood 131(L) 135 - 145 mmol/L [facility] K Whole Blood 5.9(H) 3.5 - 5.0 mmol/L [facility] Comment: Please note: Patients with WBC >100,000 may have falsely elevated Potassium levels. Contact the Clinical Chemistry Laboratory if there are any questions. ICa Whole Blood 1.00(L) 1.15 - 1.33 mmol/L [facility] Comment: Note: ??Total bilirubin higher than 20 mg/dL may lead to falsely low ionized calcium. CL Whole Blood 101 98 - 107 mmol/L [facility] Gluc Whole Bld 227(H) 65 - 199 mg/dL [facility] Comment:Diabetes: >=200 mg/d L plus symptoms. Lactate WB 2.1 0.5 - 2.2 mmol/L [facility] Blood specimen (specimen) 09/21/2016 9:44 AM EST 09/21/2016 9:44 AM EST Alirio Esparza MD CHEMISTRY ORDERABLE S [facility] [place] [address] * (ABNORMAL) Hemoglobin (09/21/2016 9:42 AM EST) Hemoglobin 7.2(L) 11.7 - 15.5 gm/dL [facility] Blood specimen (specimen) 09/21/2016 9:42 AM EST 09/21/2016 9:51 AM EST Narrative Resulting Agency Comment Spec In Lab Alirio Esparza MD HEMATOLOGY ORDERABL ES [facility] [place] [address] * Platelet count (09/21/2016 9:42 AM EST) Platelets 159 145 - 357 x10(3)/mc L [facility] Plat Immature % 1.6 0.0 - 7.4 % [facility] Comment: Limitation of the Immature Platelet Fraction (IPF)-May be less reliable when the platelet count is less than 90j478/uL due to statistical imprecision. The IPF value [...] in a decreased state of production. References: [employer] The Clinical Value of the Immature Platelet Fraction (IPF) in Cell Recovery Document Number 10-1143 12/2010 [employer] The Role of the Immature Platelet Fraction (IPF) in the Differential Diagnosis of Thrombocytopenia, Document MKT-10-1209 V05/12/14 P05/14 Blood specimen (specimen) 09/21/2016 9:42 AM EST 09/21/2016 9:51 AM EST Narrative Resulting Agency Comment Spec In Lab Alirio Esparza MD HEMATOLOGY ORDERABL ES Performing Organization Address [facility] Co de Phone Number [facility] [place] [address] * (ABNORMAL) Hematocrit (09/21/2016 9:42 AM EST) Hematocrit 21.6(L) 35.7 - 45.8 % [facility] Comment: This result has been called to MICHELLE ALEJANDRE by Serjio Frazier on 09 21 2016 at 0957, and has been read back. Blood specimen (specimen) 09/21/2016 9:42 AM EST 09/21/2016 9:51 AM EST Narrative Resulting Agency Comment Spec In Lab Alirio Esparza MD HEMATOLOGY ORDERABL ES Performing Organization Address [facility] Co de Phone Number [facility] [place] [address] * Fibrinogen (09/21/2016 9:42 AM EST) Fibrinogen 219 180 - 510 mg/dL [facility] Comment: Called by: JONNATHAN, Read back by: MICHELLE ALEJANDRE_, Date/Time:09/21/16 10:03_. A fibrinogen level >100 mg/dL is adequate for hemostasis in most patients without underlying bleeding disorders. Blood specimen (specimen) 09/21/2016 9:42 AM EST 09/21/2016 9:51 AM EST Narrative Resulting Agency Comment Spec In Lab Alirio Esparza MD HEMATOLOGY ORDERABL ES Performing Organization Address [facility] Co de Phone Number [facility] [place] [address] * (ABNORMAL) BLOOD GAS 2 ARTERIAL (09/21/2016 9:10 AM EST) pH Art 7.36 7.35 - 7.45 [facility] pCO2 Art 48(H) 35 - 45 mmHg [facility] pO2 Art 295(H) 85 - 104 mmHg [facility] HCO3 Art 26.0 20.0 - 26.0 mmol/L [facility] BE Art 0.5 -3.0 - 3.0 mmol/L [facility] Hgb Blood Gas 8.0(L) 11.7 - 15.5 gm/dL [facility] O2HB Art 98.3(H) 94.0 - 97.0 % [facility] COHB Art 1.0 % [facility] Comment: Nonsmokers: 0.5-1.5% COHB Smokers: Variable, but usually less than 10% Toxic: 20-30% COHB Lethal: Greater than 60% COHB METHB Art 0.3 <=1.5 % [facility] Na Whole Blood 135 135 - 145 mmol/L [facility] K Whole Blood 5.4(H) 3.5 - 5.0 mmol/L [facility] Comment: Please note: Patients with WBC >100,000 may have falsely elevated Potassium levels. Contact the Clinical Chemistry Laboratory if there are any questions. ICa Whole Blood 0.93(L) 1.15 - 1.33 mmol/L [facility] Comment: Note: ??Total bilirubin higher than 20 mg/dL may lead to falsely low ionized calcium. CL Whole Blood 102 98 - 107 mmol/L [facility] Gluc Whole Bld 195 65 - 199 mg/dL [facility] Comment:Diabetes: >=200 mg/d L plus symptoms. Lactate WB 1.8 0.5 - 2.2 mmol/L [facility] Temp Art 37.0 Celsius [facility] Blood specimen (specimen) 09/21/2016 9:10 AM EST 09/21/2016 9:10 AM EST Alirio Esparza MD CHEMISTRY ORDERABLE S [facility] [place] [address] * Surgical Pathology Report (09/21/2016 9:09 AM EST) FINAL DIAGNOSIS (AP) [id number] ?Location: 3T The signing pathologist has (i) [...] ?. (R1) ??ADELITA 09/24/2016 9:32 AM EST [facility] AORTIC STRUCTURE / Unknown 09/21/2016 9:09 AM EST 09/21/2016 9:09 AM EST Alirio Esparza MD PATHOLOGY/CYTOLOGY ORDERABLES [facility] [place] [address] * Specimen to Pathology (surgical or derm) (09/21/2016 9:09 AM EST) AP Specimen 09/21/2016 9:09 AM EST 09/21/2016 9:09 AM EST Narrative [facility] - 09/21/2016 9:09 AM EST Specimen requisition ordered. ??Separate Pathology report to follow Alirio Esparza MD PATHOLOGY/CYTOLOGY ORDERABLES [facility] [place] [address] * (ABNORMAL) BLOOD GAS 2 ARTERIAL (09/21/2016 8:50 AM EST) pH Art 7.41 7.35 - 7.45 [facility] pCO2 Art 33(L) 35 - 45 mmHg [facility] pO2 Art 348(H) 85 - 104 mmHg [facility] HCO3 Art 20.6 20.0 - 26.0 mmol/L [facility] BE Art -4.1(L) -3.0 - 3.0 mmol/L [facility] Hgb Blood Gas 9.5(L) 11.7 - 15.5 gm/dL [facility] O2HB Art 98.8(H) 94.0 - 97.0 % [facility] COHB Art 0.3 % [facility] Comment: Nonsmokers: 0.5-1.5% COHB Smokers: Variable, but usually less than 10% Toxic: 20-30% COHB Lethal: Greater than 60% COHB METHB Art 0.3 <=1.5 % [facility] Na Whole Blood 137 135 - 145 mmol/L [facility] K Whole Blood 4.0 3.5 - 5.0 mmol/L [facility] Comment: Please note: Patients with WBC >100,000 may have falsely elevated Potassium levels. Contact the Clinical Chemistry Laboratory if there are any questions. ICa Whole Blood 1.04(L) 1.15 - 1.33 mmol/L [facility] Comment: Note: ??Total bilirubin higher than 20 mg/dL may lead to falsely low ionized calcium. CL Whole Blood 105 98 - 107 mmol/L [facility] Gluc Whole Bld 93 65 - 199 mg/dL [facility] Comment:Diabetes: >=200 mg/d L plus symptoms. Lactate WB 1.0 0.5 - 2.2 mmol/L [facility] Blood specimen (specimen) 09/21/2016 8:50 AM EST 09/21/2016 8:50 AM EST Alirio Esparza MD CHEMISTRY ORDERABLE S [facility] [place] [address] * (ABNORMAL) BLOOD GAS 2 ARTERIAL (09/21/2016 8:18 AM EST) pH Art 7.42 7.35 - 7.45 [facility] pCO2 Art 36 35 - 45 mmHg [facility] pO2 Art 283(H) 85 - 104 mmHg [facility] HCO3 Art 22.8 20.0 - 26.0 mmol/L [facility] BE Art -2.0 -3.0 - 3.0 mmol/L [facility] Hgb Blood Gas 12.6 11.7 - 15.5 gm/dL [facility] O2HB Art 99.0(H) 94.0 - 97.0 % [facility] COHB Art 0.6 % [facility] Comment: Nonsmokers: 0.5-1.5% COHB Smokers: Variable, but usually less than 10% Toxic: 20-30% COHB Lethal: Greater than 60% COHB METHB Art 0.0 <=1.5 % [facility] Na Whole Blood 144 135 - 145 mmol/L [facility] K Whole Blood 4.0 3.5 - 5.0 mmol/L [facility] Comment: Please note: Patients with WBC >100,000 may have falsely elevated Potassium levels. Contact the Clinical Chemistry Laboratory if there are any questions. ICa Whole Blood 1.22 1.15 - 1.33 mmol/L [facility] Comment: Note: ??Total bilirubin higher than 20 mg/dL may lead to falsely low ionized calcium. CL Whole Blood 106 98 - 107 mmol/L [facility] Gluc Whole Bld 102 65 - 199 mg/dL [facility] Comment:Diabetes: >=200 mg/d L plus symptoms. Lactate WB 1.2 0.5 - 2.2 mmol/L [facility] FIO2 Art 95 % [facility] Flow Art 1.1 LPM [facility] PF Ratio Art 298 [facility] Temp Art 35.6 Celsius [facility] Blood specimen (specimen) 09/21/2016 8:18 AM EST 09/21/2016 8:18 AM EST Alirio Esparza MD CHEMISTRY ORDERABLE S Performing Organization Address City/[facility]/ZIP Co de Phone Number [facility] [place] [address] * Prepare RBC (09/21/2016 7:05 AM EST) Dispensed? Yes [facility] Blood specimen (specimen) 09/21/2016 7:05 AM EST 09/21/2016 7:02 AM EST Alirio Esparza MD BLOOD BANK PRODUCT ORDERABLES Performing Organization Address [facility] Co de Phone Number [facility] [place] [address] * POCT Glucose (09/21/2016 6:42 AM EST) Pathologist [facility] POC Glucose 104 65 - 199 mg/dL [facility] Comment: Supplemental ranges: <140 mg/dL before meals <180 mg/dL all other times of the day Blood specimen (specimen) 09/21/2016 6:42 AM EST 09/21/2016 6:42 AM EST Alirio Esparza MD POINT OF CARE TEST ORDERABLES Performing Organization Address [facility]/ZIP Co de Phone Number [facility] [place] [address] documented in this encounter Visit Diagnoses Diagnosis [...] dose on Wed09/21/16 at 1230, Until Discontinued, [place] teeth, Routine Given 09/25/2016 9:40 AM EST [...] if phenyleprine and/or vasopressin ineffective.Call pager # [phone] if initiated., Routine Rate/Dose Change 09/21/2016 2:27 [...] 2.0 L/min/M2. Maximum volume 2 L. Call roundhouse worker for additional fluid orders: pager #[phone]. Rate/Dose Verify 09/22/2016 10:00 AM EST 10 [...] Marcie Frazier RN)1302 (Given - Provider: Federico Apple, VALDO)1708 (Given - Provider: Federico Apple RN) 0005 [...] (Due - Provider: Kendall Martínez [facility]) aspirin chewable tablet 81 mg(Linked Group 1) 81 mg, Oral, DAILY, First dose on Wed09/22/16 at 0900, Until Discontinued, Start on post-op day 1 in the AM., Routine 0817 (Given - Provider: Elsa Miguel RN) 0829 (Given - Provider: Marek Barnes, RN) 0942 (Given - Provider: Joselyn Caceres, VALDO) aspirin suppository 300 mg(Linked Group 1) 300 mg, Rectal, DAILY, First dose on Wed09/22/16 at 0900, Until Discontinued, Start on post-op day 1 in the AM, Routine 0817 (See Alternative - Provider: Elsa Miguel RN) 0829 (See Alternative - Provider: Marek Barnes RN) 0942 (See Alternative - Provider: Joselyn Caceres, VALDO) atorvastatin (LIPITOR) tablet 10 mg 10 mg, Oral, EVERY EVENING, First dose on Wed09/21/16 at 1700, Until Discontinued, Routine 1708 (Given - Provider: Federico Apple, VALDO) 1622 (Given - Provider: Chaya Hill RN) [...] 170 (Given - Provider: Federico Apple RN) 1622 (Given - Provider: Chaya Hill, VALDO) chlorhexidine (PERIDEX) 0.12 % oral solution 15 mL 15 mL, Oral, EVERY 12 HOURS SCHEDULED (2 times per day), First dose on Wed09/21/16 at 1230, Until Discontinued, [place] teeth, Routine 0900 (Not Given - Provider: [...] Marek Barnes RN)1622 (Given - Provider: Chaya Hill, VALDO) 0941 (Given - Provider: Joselyn Caceres, [...] RN) 0900 (Not Given - Provider: Marek Barnes, VALDO - Reason: Patient/family refused) 0940 (Not Given [...] Routine 0300 (Not Given - Provider: Marcie Farzier RN - Reason: See comment - Comment: [...] Routine documented in this encounter Care Teams Manager Loan Relationship Specialty Start Date End Date Deborah Quiroga APRN PCP - General Family Medicine 03/24/16 02/04/23 documented as of this encounter
--- OUTSIDE RECORDS SUMMARY | 2024-03-02 14:00 | XMS_ITS | Encounter Summary ---
Author Organization Formerly [facility], 1928–1983 Address [facility] [place] [address] Care Team Providers Care Airfield Manager Name Role Phone Junaid Deborah Shields APRN Primary Care Provider [phone] Reason for Visit * Reason Comments Schedule Office Case Pain right leg Encounter Details Date Type Department Care Team (Late st Contact Info) Description 12/11/2016 9:00 AM EDT Office Visit Hematology [place] [address] Markel Borjas MD [facility] [address] HEMATOLOGY [place] [address] Neutropenia, unspecified type Social History Tobacco Use [...] 12/11/2016 9:00 AM EDT Hematology Outpatient Clinic [facility] Hematology Outpatient Consult Note CC: 60 year [...] TOUCH PREP, CLOT SECTION, CORE ??BIOPSY); [OSR# [id number], COLLECTED 06/23/2016, 19 SLIDES]: ?1. 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 Extremities: No edema. Labs: Hgb= 13 Pcbu=980 ANC= 0.5 Imaging As above - reviewed [...] 11:30 AM EST Office [place] [address] Magdalena Peralta MD [facility] [place] [address] 03/01/2025 4:15 PM EDT Office Visit Dermatology at [place] [address] [place] [phone] Marek Bonilla MD [address] [facility], [place] [address] documented as of this encounter Results * (ABNORMAL) CBC (with Diff) (06/11/2017 1:19 PM EST) Pathologist [facility] WBC 2.28(EXTER NAL/ABN) 4.4 - [...] panel (non-fasting) (06/11/2017 1:19 PM EST) Pathologist [facility] BUN 13 7 - 18 [...] type documented in this encounter Care Teams Airfield Manager Relationship Specialty Start Date End Date Deborah Quiroga, CASINO CASHIER MANAGER PCP - General Family Medicine 03/24/16 02/04/23 documented as of this encounter
--- OUTSIDE RECORDS SUMMARY | 2024-03-02 14:00 | XMS_ITS | Encounter Summary ---
Author Organization [facility] Address [facility] [place] [address] Care Team Providers Care Deburrer Name Role Phone Deborah Quiroga APRN Primary Care Provider [phone] Encounter Details Date Type Department Care Team (Late st Contact Info) Description 02/06/2020 Orders Only Hematology [place] [phone] Markel Borjas MD [facility] [address] HEMATOLOGY [place] [address] Neutropenia, unspecified type Social History Tobacco Use [...] 11:30 AM EST Office [place] [phone] Magdalena Peralta MD [facility] [place] [address] 03/01/2025 4:15 PM EDT Office Visit Dermatology at [address] [place] [phone] Marek Bonilla MD [address], [place] [address] documented as of this encounter Visit Diagnoses Diagnosis Neutropenia, unspecified type documented in this encounter Care Teams Deburrer Relationship Specialty Start Date End Date Deborah Quiroga APRN PCP - General Family Medicine 03/24/16 02/04/23 documented as of this encounter
--- OUTSIDE RECORDS SUMMARY | 2024-03-02 14:00 | XMS_ITS | Encounter Summary ---
Author Organization [facility] Address [facility] [place] [address] Care Team Providers Care Sole Leveler Machine Name Role Phone Junaid Deborah Shields APRN Primary Care Provider [phone] Encounter Details Date Type Department Care Team (Latest Contact Info) Description 10/14/2016 - 10/14/2016 11:59 PM EDT Hospital Encounter [place] [address] Alirio Esparza MD [facility] DR [place] [address] Pain Discharge Disposition: Home Social History Tobacco [...] 11:30 AM EST Office [place] [address] Magdalena Peralta MD [facility] [place] [address] 03/01/2025 4:15 PM EDT Office Visit Dermatology at [address] [place] [address] Marek Bonilla MD [address] [place] [address], [place] [address] documented as of this encounter Procedures Procedure Name Priority Date/Time Associated Diagnosis Comments FILM LIBRARY STORAGE ONLY DX CHEST Routine 10/14/2016 12:00 AM EDT Pain documented in this encounter Results * Film Library- Storage Only DX Chest (10/14/2016 12:00 AM EDT) Narrative [facility] - 10/14/2016 5:16 PM EDT This exam is for storage only and is auto-finalizing. Alirio Esparza MD IMG FILM LIBRARY OR DERABLES [place], [place] documented in this encounter Visit Diagnoses Diagnosis Pain Generalized pain documented in this encounter Care Teams Sole Leveler Machine Relationship Specialty Start Date End Date Deborah Quiroga, DIRECTOR OF SOFTWARE ENGINEERING PCP - General Family Medicine 03/24/16 02/04/23 documented as of this encounter
--- OUTSIDE RECORDS SUMMARY | 2024-03-02 14:00 | XMS_ITS | Encounter Summary ---
[place] [address] Care Team Providers Care Sandblaster Paint Sprayer Name Role Phone Ashley Quirogan Cornelius ANURAG Primary Care Provider [phone] Reason for Visit * Reason Comments Acrochordon Rosacea Encounter Details Date Type Department Care Team (Late st Contact Info) Description 12/05/2020 3:00 PM EDT Office Visit Dermatology at [address] [address] Marek Bonilla MD [address] [facility] [place] [address] Inflamed acrochordon Social History Tobacco Use Types [...] 11:30 AM EST Office [place] [address] Magdalena Peralta MD [facility] [place] [address] 03/01/2025 4:15 PM EDT Office Visit Dermatology at [place] [address] [facility] [place] [phone] Marek Bonilla MD [address], [place] [address] documented as of this encounter Visit Diagnoses Diagnosis Inflamed acrochordon Unspecified hypertrophic and atrophic condition of skin documented in this encounter Care Teams Sandblaster Paint Sprayer Relationship Specialty Start Date End Date Deborah Quiroga APRN PCP - General Family Medicine 03/24/16 02/04/23 documented as of this encounter
--- OUTSIDE RECORDS SUMMARY | 2024-03-02 14:00 | XMS_ITS | Encounter Summary ---
Author Organization Formerly [facility] Address [facility] [place] [address] Care Team Providers Care Bell Captain Name Role Phone Deborah Quiroga APRN Primary Care Provider [phone] Encounter Details Date Type Department Care Team (Late st Contact Info) Description 03/01/2020 11:30 AM EDT Office Visit Hematology [place] [phone] Patrick Borjas MD [facility] [address] [place] [address] Neutropenia, unspecified type Social History Tobacco Use [...] 03/01/2020 11:30 AM EDT Hematology Outpatient Clinic [facility] Hematology Outpatient Consult Note CC: [...] TOUCH PREP, CLOT SECTION, CORE ??BIOPSY); [OSR# [id number], COLLECTED 06/23/2016, 19 SLIDES]: ?1. 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 losartan (Cozaar) 25 mg Tablet Yes acetaminophen (TYLENOL) 500 mg Tablet Take 2 tablets by mouth every 6 hours as needed for Pain (Please take up to 1,000 mg every 6 hours when experiencing pain -10/10.). Yes spironolactone (ALDACTONE) 25 mg Tablet Take [...] intact. Extremities: No edema. Labs: Hgb= 12.4 Qcgz=200 ANC= 2.5 Imaging As above - reviewed [...] 11:30 AM EST Office [place] [address] Magdalena Peralta MD [facility] [place] [address] 03/01/2025 4:15 PM EDT Office Visit Dermatology at [address] [place] [phone] Marek Bonilla MD [address] [place] [address] RD, [place] [address] documented as of this encounter Visit Diagnoses Diagnosis Neutropenia, unspecified type documented in this encounter Care Teams Bell Captain Relationship Specialty Start Date End Date Deborah Quiroga APRN PCP - General Family Medicine 03/24/16 02/04/23 documented as of this encounter
--- OUTSIDE RECORDS SUMMARY | 2024-03-02 14:00 | XMS_ITS | Encounter Summary ---
Author Organization [facility] Address [facility] [place] [address] Care Team Providers Care Senior It Recruiter Name Role Phone Deborah Quiroga ANURAG Primary Care Provider [phone] Encounter Details Date Type Department Care Team (Late st Contact Info) Description 11/11/2020 Refill Dermatology at [address] [address] Taylor Malone, PHOTOGRAPHIC LABORATORY SUPERVISOR Social History Tobacco Use Types Packs/Day Years [...] 11:30 AM EST Office [place] [address] Magdalena Peralta MD [facility] [place]UM[place] [address] 03/01/2025 4:15 PM EDT Office Visit Dermatology at [address] [address] Marek Bonilla MD [address] [place] [address], TODD A DERMATOLOGY [place], [place] [id number] documented as of this encounter Visit Diagnoses Not on filedocumented in this encounter Care Teams Senior It Recruiter Relationship Specialty Start Date End Date Deborah Quiroga APRN PCP - General Family Medicine 03/24/16 02/04/23 documented as of this encounter
--- OUTSIDE RECORDS SUMMARY | 2024-03-02 14:00 | XMS_ITS | Encounter Summary ---
[place] [address] Care Team Providers Care Tearer Press Clipping Name Role Phone JunaidDeborah APRN Primary Care Provider [phone] Reason for Visit * Reason Comments Follow-up Encounter Details Date Type Department Care Team (Late st Contact Info) Description 01/10/2021 4:30 PM EDT Office Visit Dermatology at [place] [address] [facility] [place] [phone] Marek Bonilla MD [address] [facility], [facility] A DERMATOLOGY [place], [place] [id number] Rosacea Social History Tobacco Use Types Packs/Day [...] cutaneous and ocular 2. Previously told by property custodian that she had corneal tears from her [...] 3 refills. Will call this in her [facility] in [place] 3. Continue metronidazole 0.75% gel applying once [...] 11:30 AM EST Office [place] [address] Magdalena Peralta MD [facility] [place] [address] 03/01/2025 4:15 PM EDT Office Visit Dermatology at [place] [address] [facility] [place] [address] Marek Bonilla MD [address] [facility], [place] [address] documented as of this encounter Visit Diagnoses Diagnosis Rosacea documented in this encounter Care Teams Tearer Press Clipping Relationship Specialty Start Date End Date Deborah Quiroga APRN PCP - General Family Medicine 03/24/16 02/04/23 documented as of this encounter
--- OUTSIDE RECORDS SUMMARY | 2024-03-02 14:00 | XMS_ITS | Encounter Summary ---
Author Organization [facility] Erika lópez[place]yl[place] [address] Care Team Providers Care Linoleum Floor Layer Name Role Phone Deborah Quiroga APRN Primary Care Provider [phone] Encounter Details Date Type Department Care Team (Late st Contact Info) Description 06/05/2021 Interpretation Only [address] [address] Deborah Quiroga APRN [address] [address] Social History Tobacco Use Types Packs/Day Years [...] 11:30 AM EST [place] [address] Magdalena Peralta MD [facility] [place] [address] 03/01/2025 4:15 PM EDT Office Visit Dermatology at [place] [address] [facility] [place] [phone] Marek Bonilla MD [address], [place] [address] documented as of this encounter Procedures Procedure Name Priority Date/Time Associated Diagnosis Comments MAMMO SCREENING CAD AND ERLIN BILATERAL Routine 06/05/2021 11:42 AM EDT documented in this encounter Results * Mammo Screening Cad and Erlin Bilateral (06/05/2021 11:42 AM EDT) PT CLASS O DH RAD ADMITDTTM DH RAD PT DH RAD INFO [id number]^EVERET T^DEBORAH^E DH RAD EXAM DESC MADDSCTO^BREAST SCREEN [...] who have questions please contact the health senior caregiver that requested your imaging first. ? Electronically signed by: Rocael Villatoro MD, [facility] ([phone]), at 06/05/2021 1:27 PM Narrative 06/05/2021 1:27 [...] patients who have questions please contactthe health senior caregiver that requested your imaging first. Electronically signed by: Rocael Villatoro MD, [facility]([phone]), at 06/05/2021 1:27 PM Deborah Quiroga APRN IMG MAMMO ORDERABLE S documented in this encounter Visit Diagnoses Not on filedocumented in this encounter Care Teams Linoleum Floor Layer Relationship Specialty Start Date End Date Deborah Quiroga APRN PCP - General Family Medicine 03/24/16 02/04/23 documented as of this encounter
--- OUTSIDE RECORDS SUMMARY | 2024-03-02 14:00 | XMS_ITS | Encounter Summary ---
[place] [address] Care Team Providers Care Drying Room Operator Name Role Phone Ashley Quirogazac Shields APRN Primary Care Provider [phone] Reason for Visit * Reason Onset Date Comments Results 12/03/2016 Encounter Details Date Type Department Care Team (Late st Contact Info) Description 12/03/2016 Telephone H[place]ology [place] [address] Yudith Valentine RN Results Social [...] EDT RN received call from Maddy at [facility] reporting critical WBC at 1.61, and ANC of 0.5. She will fax the full results to this office for case reviewer notified DR Borjas of above results documented in this encounter Plan of Treatment Upcoming Encounters Date Type Department Care Team (Late st Contact Info) Description 06/05/2024 11:30 AM EST [place] [address] Magdalena Peralta MD [facility] [place] [address] 03/01/2025 4:15 PM EDT Office Visit Dermatology at [place] [address] [facility] [place] [address] Marek Bonilla MD [address] [facility] [address], [facility] [place] [address] documented as of this encounter Visit Diagnoses Not on filedocumented in this encounter Care Teams Drying Room Operator Relationship Specialty Start Date End Date Deborah Quiroga APRN PCP - General Family Medicine 03/24/16 02/04/23 documented as of this encounter
--- OUTSIDE RECORDS SUMMARY | 2024-03-02 14:00 | XMS_ITS | Encounter Summary ---
[place] [address] Care Team Providers Care Technical Services Representative Name Role Phone Ashley Quirogan Cornelius ANURAG Primary Care Provider [phone] Reason for Visit * Reason Comments Skin Check Encounter Details Date Type Department Care Team (Late st Contact Info) Description 11/11/2020 10:45 AM EDT Office Visit Dermatology at [address] [place] [address] Marek Bonilla MD [address] [facility], [facility] A DERMATOLOGY [place], [place] [id number] Rosacea; Acrochordon Social History Tobacco Use Types [...] Discussed the possibility of getting this through [facility] or from the [facility] pharmacy if necessary. She has not yet [...] 11:30 AM EST Office [place] [address] Magdalena Peralta MD [facility] [place] [address] 03/01/2025 4:15 PM EDT Office Visit Dermatology at [address] [place] [address] Marek Bonilla MD [address] [facility] [address], [place] [address] documented as of this encounter Visit Diagnoses Diagnosis Rosacea Acrochordon Unspecified hypertrophic and atrophic condition of skin documented in this encounter Care Teams Technical Services Representative Relationship Specialty Start Date End Date Deborah Quiroga APRN PCP - General Family Medicine 03/24/16 02/04/23 documented as of this encounter
--- OUTSIDE RECORDS SUMMARY | 2024-03-02 14:00 | XMS_ITS | Encounter Summary ---
Author Organization [facility] Address [facility] [place] [address] Care Team Providers Care Raker Buffing Wheel Name Role Phone Deborah Quiroga APRN Primary Care Provider [phone] Encounter Details Date Type Department Care Team (Late st Contact Info) Description 06/18/2017 11:00 AM EST Office Visit Hematology [place] [address] Markel Borjas MD [facility] [address] [place] [address] Neutropenia, unspecified type Social History Tobacco Use [...] 06/18/2017 11:00 AM EST Hematology Outpatient Clinic [facility] Hematology Outpatient Consult Note CC: [id number] [...] TOUCH PREP, CLOT SECTION, CORE ??BIOPSY); [OSR# [id number], COLLECTED 06/23/2016, 19 SLIDES]: ?1. ??Normocellular marrow [...] a clonal lymphoproliferative or myeloproliferative disorder (OSR# [id number]) Chromosome analysis on the marrow aspirate revealed [...] working the same job and participating in [employer] patients. Past Medical/Surgical History: 1. Leukopenia -element of neutropenia, as noted above 2. Aortic Stenosis -severe -AVR surgery 3. Hypercholesterolemia 4. Depression 5. Hypertension 6. 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 Extremities: No edema. Labs: Hgb= 13 Yuwg=010 ANC= 0.6 Imaging As above - reviewed [...] 11:30 AM EST Office [place] [address] Magdalena Peralta MD [facility] [place] [address] 03/01/2025 4:15 PM EDT Office Visit Dermatology at [address] [place] [address] Marek Bonilla MD [address] [place] [address], [place] [address] documented as of this encounter Visit Diagnoses Diagnosis Neutropenia, unspecified type documented in this encounter Care Teams Raker Buffing Wheel Relationship Specialty Start Date End Date Deborah Quiroga APRN PCP - General Family Medicine 03/24/16 02/04/23 documented as of this encounter
--- OUTSIDE RECORDS SUMMARY | 2024-03-02 14:00 | XMS_ITS | Encounter Summary ---
[place] [address] Care Team Providers Care Product Support Sales Representative Name Role Phone Deborah Quiroga ANURAG Primary Care Provider [phone] Encounter Details Date Type Department Care Team (Late st Contact Info) Description 02/07/2020 Telephone Hematology [place] [address] Ellen Rios RN Social History [...] 02/07/2020 12:59 PM EDT Message received from department secretary: Injection/Infusion Referral Services to be provided for pt are: CBC only at [facility]- Pt will go by 02/27 Orders faxed to [phone]). Spoke with pt. She will call [facility] directly to schedule a time that works for her. documented in this encounter Plan of Treatment Upcoming Encounters Date Type Department Care Team (Late Contact Info) Description 06/05/2024 11:30 AM EST Office [place] [address] Magdalena Peralta MD [facility] [place] [address] 03/01/2025 4:15 PM EDT Office Visit Dermatology at [place] [address] [facility] [place] [address] Marek Bonilla MD [address], [place] [address] documented as of this encounter Visit Diagnoses Not on filedocumented in this encounter Care Teams Product Support Sales Representative Relationship Specialty Start Date End Date Deborah Quiroga APRN PCP - General Family Medicine 03/24/16 02/04/23 documented as of this encounter
--- OUTSIDE RECORDS SUMMARY | 2024-03-02 14:01 | XMS_ITS | Encounter Summary ---
Author Organization [facility] [place] [address] Care Team Providers Care Weapons Mechanic Name Role Phone Ashley Quirogazac Shields APRN Primary Care Provider [phone] Reason for Visit * Auth/Cert Specialty Diagnoses / Procedures Referred By Crispin t Referred To Contact Diagnoses Aortic stenosis Procedures PRO REPLACE AORT VALV, PROSTH VALV @REPLACE AORTIC VALVE, OPEN, W\CPB, W\PROSTHETIC VALVE (WRVU 41.32) Referral ID Status Reason Start Date Expiration Date Visits Re quested Visits Authorized [id number] 1 1 Encounter Details Date Type Department Care Team (Late st Contact Info) Description 09/21/2016 7:30 AM EST - 09/21/2016 12:04 PM EST Surgery [place] [address] Alirio Esparza MD [facility] [place] [address] @REPLACE AORTIC VALVE, OPEN, W\CPB, W\PROSTHETIC VALVE [...] Patient Age: 61 y.o. Birthdate: 1955 Language: Kyrgyz Race: White Ethnicity: Not nor Admit Date: 09/21/2016 Discharge Date: 09/25/2016 Attending Physician: Alirio Esparza MD Follow-up Recommendations for Providers: Please continue routine management of cardiovascular risk factors including blood pressure, lipids,glucose, etc. Please note any changes to medications. Patient to follow-up with PCP, Deborah Quiroga APRN, in 1-2 weeks. Patient to follow-up with Truck Bench Mechanic, Dr. Antelmo Burrell, in two weeks. Patient to follow-up with Cardiac Surgery, Dr. Alirio Esparza, to be scheduled for before 10/19/2016, with CXR, EKG, and Echo. Inpatient Provider Contact Information: [facility] Section of Cardiac Surgery [facility] [address] FAX [phone] Discharge Diagnoses (Hospital Problems) Primary Diagnoses: Secondary [...] @REPLACE AORTIC VALVE, OPEN, W\CPB, W\PROSTHETIC VALVE ([facility] performed by Alirio Esparza MD at [facility] MA[facility] OR ??? Pro aortoplas for supravalv sten N/A 09/21/2016 @AORTOPLASTY FOR SUPRAVALVULAR STENOSIS (VU 29.33) performed by Alirio Esparza MD at [facility] MAIN OR Prior To Admission Medications [...] Hospital Course: Purnima Thacker was admitted to [facility] on 09/21/2016 via the Same Day [...] Alirio Esparza and/or the Cardiac Surgery Physician Single Corner Cutter Team may be reached at . Antibiotic prophylaxis: You will need to take antibiotics prior to many invasive tests and treatments, such as dental cleaning, which should be done every 6 months. Your primary care physician or your dentist can prescribe this medication. Please refer to the card with the [place] [employer] Guidelines for more information. You have been provided with 3 copies of this card. Keep one for your self. Give one to your primary care physician and one to your dentist. Please refer to the [place] [employer] Guidelines for more information. Good [...] Dr. Alirio Jones. You may use a [place] or treadmill but avoid any pulling [...] friends, go to a movie, go to shinto, etc. Heavy activities: No hunting, skiing, jogging, [...] should resume a low fat, low cholesterol, [place] [employer] Diet. Driving: No driving until [...] AM Markel Borjas MD [facility] Onc [phone] Future Orders Complete By Expires Echocardiogram Transthoracic([place]) [ULZ728 Custom] 10/18/2016 (Approximate) 09/18/2017 Process Instructions: If the Echocardiogram is to be PERFORMED in a location other than [place]--STOP and order CBV993, Echocardiogram South/External. Scheduling Instructions: Questions: Is a Bubble Study requested?: No Does the patient have Congenital Heart Disease?: No Does patient require sedation?: None GA rationale: Should this service be billed to the research sponsor?: EKG 12 Lead [EKG1 Custom] 10/18/2016 (Approximate) 09/25/2017 Process Instructions: Scheduling Instructions: Questions: Which location will this be performed?: [place] Is a rhythm strip needed?: No If EKG Reason is Pre-op Evaluation, indicate diagnosis for surgery.: Should this service be billed to the research sponsor?: XR Chest PA & Lateral (Generic) [79071 [id number] Custom] 10/18/2016 (Approximate) 09/25/2017 Process Instructions: Scheduling Instructions: Questions: Where will study be performed?: [facility]- Radiology Portable exam?: No Reason for exam and clinical history: s/p AVReplacement, patch annuloplasty 1 month f/u Other pertinent information: Stat read required?: Date of injury if applicable: Requested Time: Referral to Cardiac Rehab [AOH303 Custom] As directed Process Instructions: If no progress note charted, please enter Clinical details in comments. Scheduling Instructions: Questions: My question or request is: s/p AVR. Cardiac rehab at [facility] Referral to Home Health - at DISCHARGE [TAY7814 CPT(R)] As directed Process Instructions: Scheduling Instructions: Comments: DOCUMENTATION FOR VNA SERVICES (INCLUDING THOSE PATIENTS WITH MEDICARE COVERAGE REQUIRING HOME VNA SERVICES AND/OR HOSPICE SERVICES) PATIENT'S LOCATION: Purnima M Kirstie [address] [place] [phone] (home) No relevant phone numbers on file. Retail Event Coordinator's Name: self In discussion with the attending physician, it is certified that this patient is under their care and that they, or a Nurse Practitioner, or Physician Single Corner Cutter who is working directly with them, hada [...] for services as follows: HOME HEALTH AGENCY: [facility] PHONE: [phone] FAX: [phone] RN orders: Cardiopulmonary assessment, incisional assessment, assess [...] issues please call the Cardiac SurgeryOffice at [phone] FOR MEDICARE ONLY: In discussion with the [...] noted. Questions: Agency name and contact information: [facility] VNA Patient location post discharge: home What services are requested: Registered Nurse Physical Therapy Occupational Therapy Start date: Responsible MD post discharge contact info: Arrangements for VNA/home care: As above. VN RN OR PCP TO PLEASE REMOVE CHEST TUBE SUTURES ON OR AFTER 09/30/16 Signed: Crispin Aranda PA-C 09/25/2016 [facility] Section of Cardiac Surgery [facility] [address] FAX [phone] Date: 09/25/2016 CC: ANURAG Alford Caryn E, APRN [address] [place] [address] documented in this encounter Discharge Instructions * [...] Alirio Esparza and/or the Cardiac Surgery Physician Single Corner Cutter Team may be reached at . Antibiotic prophylaxis: You will need to take antibiotics prior to many invasive tests and treatments, such as dental cleaning, which should be done every 6 months. Your primary care physician or your dentist can prescribe this medication. Please refer to the card with the [place] [employer] Guidelines for more information. You have been provided with 3 copies of this card. Keep one for your self. Give one to your primary care physician and one to your dentist. Please refer to the [place] [employer] Guidelines for more information. Good [...] Dr. Alirio Jones. You may use a [place] or treadmill but avoid any pulling [...] friends, go to a movie, go to shinto, etc. Heavy activities: No hunting, skiing, jogging, [...] should resume a low fat, low cholesterol, [place] [employer] Diet. Driving: No driving until [...] PM EST Cardiac Surgery Progress Note: ID: [id number] S/p AVR, patch aortoplasty POD#2. PMH of [...] Gas) No results found for: PHART, PO2ART, MDX1BAI Assessment/Plan: TPW out this am. (+) BM. [...] Signed: Crispin Aranda PA-C 09/24/2016 Team pager: [phone]; [phone] after 5pm [facility] Section of Cardiac Surgery * Leonor Henson S, [employer]OOK - 09/23/2016 10:48 AM EST Cardiac Surgery Progress Note: ID: [id number] s/p AVR, patch aortoplasty POD#2. PMH of [...] Gas) No results found for: PHART, PO2ART, CRT1CUG Assessment/Plan: s/p AVR, patch aortoplasty POD#2. PMH of Neutropenia, HLD, HTN, Depression, obesity, . Transferred from [facility] yesterday and doing well. Pathway. [...] Surgeon on rounds. Signed: Leonor Henson APRN [facility] Section of Cardiac Surgery Date: 09/23/2016 * Nico Palacios PA - 09/22/2016 9:56 AM EST Cardiac Surgery Progress Note: ID: [id number] s/p AVR, patch aortoplasty POD#1. PMH of [...] NT, ND, soft. Ext: Moves all extremities. [place], well perfused. Incisions: C/D/I Tubes/Lines/Drains: PIV, leanna, [...] Attending Surgeon on rounds. Signed: EKATERINA KIM [facility] Section of Cardiac Surgery Date: 09/22/2016 [...] Outcome (s) achieved Date Met: 09/25/16 09/25/16 9408 Coping/Psychosocial Plan Of Care Reviewed With patient [...] with outpatient services Lalitha Cohen SPTA Pager: [phone] Inpatient Physical Therapy Patient status, treatment interventions, and goals discussed with student. I am in agreement with all details and associated flowsheet rows as documented and was present for all aspects of the patient treatment session. Nery Jaramillo PTA Pager [phone] Problem: Acute Rehab Services Goal & Intervention Plan Goal: Bed Mobility Goal Stand Alone Therapy Goal Outcome: Ongoing (Interventions Implemented as Appropriate) 09/22/16 1611 09/25/16 0947 Bed Mobility Goal Bed Mobility Goal, Time to Achieve 4 days -- Bed Mobility Goal, Activity Type scoot/bridge;supine to sit/sit to supine -- Bed Mobility Goal, [place] Level independent -- Bed Mobility Goal, Additional [...] Achieve 4 days -- Gait Training Goal, [place] Level independent -- Gait Training Goal, Distance to Achieve ascend and descends 2 steps independently -- Gait Training Goal, Outcome -- goal met * Plan of Care - Alei Whitfield RN - 09/25/2016 3:39 AM EST [...] * Plan of Care - Nery Jaramillo PC ANALYST - 09/23/2016 2:23 PM EST Problem: Patient [...] home with home health [facility]itha Radha [facility] Pager: [phone] Inpatient Physical Therapy Patient status, treatment interventions, and goals discussed with student. I am in agreement with all details and associated flowsheet rows as documented and was present for all aspects of the patient treatment session. Nery Jaramillo PTA Pager [phone] Problem: Acute Rehab Services Goal & Intervention Plan Goal: Bed Mobility Goal Stand Alone Therapy Goal Outcome: Ongoing (Interventions Implemented as Appropriate) 09/22/16161009/23/161411 Bed Mobility Goal Bed Mobility Goal, Time to Achieve 4 days -- Bed Mobility Goal, Activity Type scoot/bridge;supine to sit/sit to supine -- Bed Mobility Goal, [place] Level independent -- Bed Mobility Goal, Additional [...] Achieve 4 days -- Gait Training Goal, [place] Level independent -- Gait Training Goal, Distance [...] days -- Transfer Training Goal, Activity Type aoa-vd-orrac/ajrlz-cg-fht;ket-ew-upjwx/wpacp-pl-bjh -- Transfer Train Goal, [place] Level independent -- Transfer Training Goal, Additional Goal abides sternal precautions -- Transfer Training Goal, Outcome -- goal met * Consult Note - Jana Crenshaw RN - 09/23/2016 9:41 AM EST [facility] CARDIAC REHABILITATION Purnima Thacker was seen today [...] Another Service: (cardiac rehab) NICOLE HERNANDEZ, PT Pager:[phone] Inpatient Physical Therapy Problem: Acute Rehab Services Goal & Intervention Plan Goal: Bed Mobility Goal Stand Alone Therapy Goal Outcome: Ongoing (Interventions Implemented as Appropriate) 09/22/16 1611 Bed Mobility Goal Bed Mobility Goal, Time to Achieve 4 days Bed Mobility Goal, Activity Type scoot/bridge;supine to sit/sit to supine Bed Mobility Goal, [place] Level independent Bed Mobility Goal, Additional Goal able to abide sternal precautions during transfers Goal: Gait Training Goal Stand Alone Therapy Goal Outcome: Ongoing (Interventions Implemented as Appropriate) 09/22/16 1611 Gait Training Goal Gait Training Goal, Date Established 09/22/16 Gait Training Goal, Time to Achieve 4 days Gait Training Goal, [place] Level independent Gait Training Goal, Distance to Achieve ascend and descends 2 steps independently Goal: Goal Transfer Training Stand Alone Therapy Goal Outcome: Ongoing (Interventions Implemented as Appropriate) 09/22/16 1611 Goal Transfer Training Transfer Training Goal, Time to Achieve 4 days Transfer Training Goal, Activity Type npu-vk-fdhnx/acqth-dd-hum;zgb-io-pnvsc/vgjez-ty-qyp Transfer Train Goal, [place] Level independent Transfer Training Goal, Additional Goal [...] of completing AD's at home, chooses her tnbyex-dm-lfx, Martha Thacker (home) for her DPOAH, 2nd choice in friend, Nitesh Leroy, [place], [place] Current Coping/Education/Information Needs: patient sitting up [...] close by, Rashad & Raymond, and her sjeckq-ka-pdt Martha Thacker who she has chosen to be her DPOAH. Also has a friend Nitesh Leroy who lives in [place], [place], also her DPOAH choice. Behavioral Health History: none on file in [facility] Substance Use/Abuse: none on file in [facility] Other Pertinent/Service Specific Information: none Health/Prescription Coverage: Primary Insurance: [employer] Secondary Insurance: none Prescription Coverage: yes, per patient no issues Preferred Pharmacy: ?? Other: none Primary Care Provider: Deborah Quiroga, [employer] [phone] Patient/Caregiver Goals of Treatment: per medical team recommendations at discharge for CT surgery Potential Needs for Transition of Care: Rehab/SNF: TBD Home Health: TBD DME: no Dialysis: no Community Resources: non3 Transportation: ride home with a friend Other: none Anticipated Barriers to Discharge/Special Considerations: none anticipated at this time Plan: patient will need VNA services at discharge. The patient/fundraising sale representative has been provided a list of Home Health Agencies/DME vendors which servetheir preferred geographic area. A letter describing our affiliations was reviewed with them and they were educated about their right to choose where referrals are placed. Patient requests referral to: [facility] [employer]. PHONE: [phone] FAX: [phone] Expected date of discharge: Fri/Sat? CM called VNA to confirm referral, talked with VALDO Bunn/intake who stated she was familiar w/patient & would monitor her progress through curaspan. Referral routed to the Vending Machine Host/Hostess for matching with agency/vendor and to provide any required information. A member of the Care Management team will continue to monitor progress, follow for continuity of care and assist with transition of care planning. Amanda Moreno RN Pager: [phone] * Op Note - Alirio Esparza MD - 09/21/2016 12:53 PM EST 09/23/2016 Purnima Thacker 1955 [id number] Preoperative Diagnosis: Symptomatic aortic stenosis Postoperative Diagnosis: Symptomatic aortic stenosis Procedure: Aortic valve replacement: Bovine Pericardial 25 mm Surgeon: Alirio Esparza M.D. Single Corner Cutter: Philip BALL Anesthesia: General endotracheal anesthesia Drains: [...] applied. The patient was transported to the [facility] on [place]. All counts were correct. * [...] Operative Note Patient Name: Purnima Thacker : [id number] MR#: [id number] Case Date: 09/21/2016 Surgeon: Surgeon(s) and Role: * Alirio Esparza MD - Primary * Nico Palacios PA - Physician Single Corner Cutter Preoperative diagnosis: Postoperative diagnosis: Procedure(s) (LRB): @REPLACE [...] 11:30 AM EST Office [place] [address] Magdalena Peralta MD [facility] [place] [address] 03/01/2025 4:15 PM EDT Office Visit Dermatology at [place] [address] [place] [address] Marek Bonilla MD [address], [place] [address] Scheduled Orders Name Type Priority Associated Diagnoses [...] IMPLANTABLE DEVICES SCAN 09/26/2016 12:00 AM EST KEY BED INSTALLER SCAN 09/26/2016 12:00 AM EST POTASSIUM Routine [...] SCAN EXT O RDR/RSLT * SCAN DOC: KEY BED INSTALLER (09/26/2016 12:00 AM EST) Anatomical Region Laterality Modality Other Narrative 09/26/2016 12:00 AM EST Ordered by an unspecified provider. Scanning Provider MEDIA MGR SCAN EXT O RDR/RSLT * Potassium (09/25/2016 4:32 AM EST) Pathologist [facility] Potassium 4.4 3.5 - 5.0 mmol/L [facility] Comment: Please note: ??Patients with [...] CHEMISTRY ORDERABLE S Performing Organization Address City/State/[facility] Co de Phone Number [facility] [place] [address] * (ABNORMAL) Differential, Automated (09/24/2016 9:56 AM EST) Pathologist [facility] Neutrophils % 76.8 % [facility] Neutr Abs (ANC) 7.79(H) 1.70 - 6.10 x10(3)/mc L [facility] Lymphocytes % 11.1 % [facility] Lymphocytes Abs 1.1 0.9 - 3.2 x10(3)/[facility] LABORATORY Monocytes % 8.5 % [facility] Monocyte Abs 0.9 0.3 - 0.9 x10(3)/ L [facility] Eosinophils % 0.5 % [facility] Eosinophils Abs 0.0 0.0 - 0.4 x10(3)/mc L [facility] Basophils % 0.2 % [facility] Basophils Abs 0.0 0.0 - 0.1 x10(3)/ L [facility] Immature Gran % 2.90 % [facility] Comment: Immature granulocytes(IG's)percentage and absolute count will include metamyelocytes, myelocytes, and promyelocytes. Blood smears from CBCs yielding IG's will be scanned manually for concordance. If this scan disagrees with the automated IG or if promyelocytes are noted, a manual differential will be performed. Amanda Gran Abs 0.29(H) 0.00 - 0.04 x10(3)/ L [facility] Blood specimen (specimen) 09/24/2016 9:56 AM EST 09/24/2016 10:04 AM EST Narrative Resulting Agency Comment Spec In Lab Alirio Esparza MD HEMATOLOGY ORDERABL ES [facility] [place] [address] * (ABNORMAL) Hemogram (09/24/2016 9:56 AM EST) WBC 10.1(H) 4.0 - 9.5 x10(3)/[facility]ORAT[facility] RBC 2.87(L) 4.00 - 5.21 x10(6)/[facility] Hemoglobin 9.4(L) 11.7 - 15.5 gm/dL [facility] Hematocrit 28.3(L) 35.7 - 45.8 % [facility] MCV 98.6(H) 82.6 - 94.[address] [facility] MCH 32.8(H) 27.1 - 32.[address] [facility] MCHC 33.2 31.7 - 35.0 gm/dL [facility] Platelets 141(L) 145 - 357 x10(3)/[facility] LABORATORY RDWSD 45.0 37.0 - 46.0 [facility] RDWCV 12.6 11.5 - 14.1 % [facility] MPV 9.4 7.6 - 12.9 [facility] nRBC % Auto 1.1 % [facility] nRBC Abs Auto 0.110(H) 0.000 - 0.000 x10(3)/[facility] Blood specimen (specimen) 09/24/2016 9:56 AM EST 09/24/2016 10:04 AM EST Narrative Resulting Agency Comment Spec In Lab Alirio Esparza MD HEMATOLOGY ORDERABL ES [facility] [place] [address] * (ABNORMAL) Basic Metabolic Panel (non-fasting) (09/24/2016 9:56 AM EST) Glucose Lvl 111 65 - 199 mg/dL [facility] Comment:Diabetes: >=200 mg/d L plus symptoms BUN 23(H) 8 - 18 mg/dL [facility] Comment:result rechecked-ART Creatinine 0.89 0.70 - 1.20 mg/dL [facility] Comment: Please note that the pediatric reference intervals supplied above were not validated at [facility]. Results from pediatric patients should be interpreted in conjunction to the patient's age, height and muscle mass. Sodium 138 135 - 145 mmol/L [facility] Potassium 4.2 3.5 - 5.0 mmol/L [facility] Comment: Please note: ??Patients with WBC >100,000 may have falsely elevated Potassium levels. ??For accurate Potassium quantification in these patients send serum separator tube (gold top) for subsequent determinations. ??Contact the Clinical Chemistry Laboratory if there are any questions. Chloride 98 98 - 107 mmol/L [facility] CO2 26 22 - 31 mmol/L [facility] Anion Gap 14 5 - 15 mmol/L [facility] Calcium 9.1 8.5 - 10.5 mg/dL [facility] Estimated GFR >60 >=60 [facility] Comment: This estimated GFR (eGFR) [...] the following links into your internet browser. [email or web address] Blood specimen (specimen) 09/24/2016 9:56 AM EST 09/24/2016 10:04 AM EST Narrative Resulting Agency Comment Spec In Lab Alirio Esparza MD CHEMISTRY ORDERABLE S [facility] [place] [id number] * XR Chest PA & Lateral (Generic) [...] EST) Potassium 4.5 3.5 - 5.0 mmol/L [facility] Comment: Please note: ??Patients with [...] MD CHEMISTRY ORDERABLE S Performing Organization Address City/[facility]/ZIP Co de Phone Number [facility] [place] [address] * POCT Glucose (09/22/2016 8:17 AM EST) [facility] POC Glucose 131 65 - 199 mg/dL [facility] Comment: Supplemental ranges: <140 mg/dL before meals <180 mg/dL all other times of the day Blood specimen (specimen) 09/22/2016 8:17 AM EST 09/22/2016 8:17 AM EST Alirio Esparza MD POINT OF CARE TEST ORDERABLES Performing Organization Address [facility] Co de Phone Number [facility] [place] [address] * POCT Glucose (09/22/2016 4:01 AM EST) [facility] POC Glucose 135 65 - 199 mg/dL [facility] Comment: Supplemental ranges: <140 mg/dL before meals <180 mg/dL all other times of the day Blood specimen (specimen) 09/22/2016 4:01 AM EST 09/22/2016 4:01 AM EST Alirio Esparza MD POINT OF CARE TEST ORDERABLES Performing Organization Address [facility] Co de Phone Number [facility] [place] [address] * Scan, Peripheral Blood (09/22/2016 4:00 AM EST) Plat Estimate Normal [facility] RBC Morphology Abnormal [facility] Macrocytes 1-5 /HPF [facility] Giant Platelets Less than 1 /HPF [facility] Blood specimen (specimen) 09/22/2016 4:00 AM EST 09/22/2016 4:34 AM EST Narrative Resulting Agency Comment Spec In Lab Alirio Esparza MD HEMATOLOGY ORDERABL ES Performing Organization Address [facility] Co de Phone Number [facility] [place] [address] * Electrolytes panel (09/22/2016 4:00 AM EST) Pathologist [facility] Sodium 145 135 - 145 mmol/L [facility] Potassium 4.4 3.5 - 5.0 mmol/L [facility] Comment: Please note: ??Patients with WBC >100,000 may have falsely elevated Potassium levels. ??For accurate Potassium quantification in these patients send serum separator tube (gold top) for subsequent determinations. ??Contact the Clinical Chemistry Laboratory if there are any questions. Chloride 107 98 - 107 mmol/L [facility] CO2 24 22 - 31 mmol/L [facility] Anion Gap 14 5 - 15 mmol/L [facility] Blood specimen (specimen) Venous Draw / Unknown 09/22/2016 4:00 AM EST 09/22/2016 4:34 AM EST Narrative Resulting Agency Comment Spec In Lab Alirio Esparza MD CHEMISTRY ORDERABLE S Performing Organization Address [facility] Co de Phone Number [facility] [place] [address] * (ABNORMAL) Differential, Automated (09/22/2016 4:00 AM EST) Pathologist [facility] Neutrophils % 70.9 % [facility] Neutr Abs (ANC) 5.33 1.70 - 6.10 x10(3)/mc L [facility] Lymphocytes % 9.1 % [facility] Lymphocytes Abs 0.7(L) 0.9 - 3.2 x10(3)/[facility] LABORATORY Monocytes % 18.0 % [facility]ORATORY Monocyte Abs 1.4(H) 0.3 - 0.9 x10(3)/[facility] LABORATORY Eosinophils % 0.0 % [facility]OR[facility]ORY Eosinophils Abs 0.0 0.0 - 0.4 x10(3)/[facility] LABORATORY Basophils % 0.1 % [facility] Basophils Abs 0.0 0.0 - 0.1 x10(3)/[facility] LABORATORY Immature Gran % 1.90 % [facility] Comment: Immature granulocytes(IG's)percentage and absolute [...] Lab Alirio Esparza MD HEMATOLOGY ORDERABL ES [facility] [place] [address] * (ABNORMAL) Hemogram (09/22/2016 4:00 AM EST) WBC 7.5 4.0 - 9.5 x10(3)/[facility] LABORATORY RBC 2.93(L) 4.00 - 5.21 x10(6)/[facility] LABORATORY Hemoglobin 9.2(L) 11.7 - 15.5 gm/dL [facility] Hematocrit 28.0(L) 35.7 - 45.8 % [facility] MCV 95.6(H) 82.6 - 94.[address] [facility] MCH 31.4 27.1 - 32.[address] [facility] MCHC 32.9 31.7 - 35.0 gm/dL [facility] Platelets 161 145 - 357 x10(3)/[facility] LABORATORY RDWSD 44.0 37.0 - 46.[address] [facility] RDWCV 12.6 11.5 - 14.1 % [facility] MPV 9.3 7.6 - 12.[address] [facility] nRBC % Auto 0.3 % [facility] nRBC Abs Auto 0.020(H) 0.000 - 0.000 x10(3)/[facility] LABORATORY Blood specimen (specimen) 09/22/2016 4:00 AM EST 09/22/2016 4:34 AM EST Narrative Resulting Agency Comment Spec In Lab Alirio Esparza MD HEMATOLOGY ORDERABL ES Performing Organization Address City/State/[facility] Co de Phone Number [facility] [place] [address] * (ABNORMAL) Cardiac Enzymes (09/22/2016 4:00 AM EST) Troponin-T 0.13(H) <=0.03 ng/mL [facility] Comment: 0.03 ng/mL: Represents the 99th percentile upper reference limit for normals. >0.03 ng/mL: Elevated cardiac troponin T level indicative of myocardial damage. Diagnosis of acute, evolving or recent MS requires a typical rise and gradual fall [...] consensus document of the Joint Society of Cardiology/[place] [employer] Committee for the redefinition of myocardial infarction. ??Journal of the [place] [employer] 2000; 36: 959-969] CK, Total 338(H) 0 - 160 unit/L [facility] Blood specimen (specimen) 09/22/2016 4:00 AM EST 09/22/2016 4:34 AM EST Narrative Resulting Agency Comment Spec In Lab Alirio Esparza MD CHEMISTRY ORDERABLE S Performing Organization Address [facility] Co de Phone Number [facility] [place] [address] * (ABNORMAL) Glucose, fasting (09/22/2016 4:00 AM EST) Glucose Fasting 137(H) 65 - 99 mg/dL [facility] Comment: ?Fasting* Glucose Interpretive Criteria [...] of Diabetes Mellitus, Position Statement from the [place] [employer]. ??Diabetes Care, Volume 33, Supplement 1, Aug 2009 Blood specimen (specimen) 09/22/2016 4:00 AM EST 09/22/2016 4:34 AM EST Narrative Resulting Agency Comment Spec In Lab Alirio Esparza MD CHEMISTRY ORDERABLE S Performing Organization Address [facility] Co de Phone Number [facility] [place] [address] * (ABNORMAL) Creatinine (09/22/2016 4:00 AM EST) Creatinine 0.69(L) 0.70 - 1.20 mg/dL [facility] Comment: Please note that the pediatric reference intervals supplied above were not validated at [facility]. Results from pediatric patients should be interpreted in conjunction to the patient's age, height and muscle mass. Estimated GFR >60 >=60 [facility] Comment: This estimated GFR (eGFR) [...] the following links into your internet browser. [email or web address] Blood specimen (specimen) 09/22/2016 4:00 AM EST 09/22/2016 4:34 AM EST Narrative Resulting Agency Comment Spec In Lab Alirio Esparza MD CHEMISTRY ORDERABLE S Performing Organization Address [facility] Co de Phone Number [facility] [place] [address] * BUN (09/22/2016 4:00 AM EST) BUN 10 8 - 18 mg/dL [facility] Blood specimen (specimen) 09/22/2016 4:00 AM EST 09/22/2016 4:34 AM EST Narrative Resulting Agency Comment Spec In Lab Alirio Esparza MD CHEMISTRY ORDERABLE S Performing Organization Address [facility] Co de Phone Number [facility] [place] [address] * POCT Glucose (09/21/2016 9:59 PM EST) POC Glucose 146 65 - 199 mg/dL [facility] Comment: Supplemental ranges: <140 mg/dL before meals <180 mg/dL all other times of the day Blood specimen (specimen) 09/21/2016 9:59 PM EST 09/21/2016 9:59 PM EST Alirio Esparza MD POINT OF CARE TEST ORDERABLES Performing Organization Address [facility] Co de Phone Number [facility] [place] [address] * POCT Glucose (09/21/2016 7:26 PM EST) POC Glucose 152 65 - 199 mg/dL [facility] Comment: Supplemental ranges: <140 mg/dL before meals <180 mg/dL all other times of the day Blood specimen (specimen) 09/21/2016 7:26 PM EST 09/21/2016 7:26 PM EST Alirio Esparza MD POINT OF CARE TEST ORDERABLES Performing Organization Address [facility] de Phone Number [facility] [place] [address] * POCT Glucose (09/21/2016 6:00 PM EST) POC Glucose 146 65 - 199 mg/dL [facility] Comment: Supplemental ranges: <140 mg/dL before meals <180 mg/dL all other times of the day Blood specimen (specimen) 09/21/2016 6:00 PM EST 09/21/2016 6:00 PM EST Alirio Esparza MD POINT OF CARE TEST ORDERABLES Performing Organization Address [facility] de Phone Number [facility] [place] [address] * (ABNORMAL) BLOOD GAS 2 ARTERIAL (09/21/2016 4:42 PM EST) pH Art 7.35(L) 7.35 - 7.45 [facility] pCO2 Art 48(H) 35 - [address] [facility] pO2 Art 108(H) 85 - [address] [facility] HCO3 Art 26.0 20.0 - 26.0 mmol/L [facility] BE Art 0.5 -3.0 - 3.0 mmol/L [facility] Hgb Blood Gas 10.4(L) 11.7 - 15.5 gm/dL [facility] O2HB Art 96.2 94.0 - 97.0 % [facility] COHB Art 0.0 % [facility] Comment: Nonsmokers: 0.5-1.5% COHB Smokers: Variable, but usually less than 10% Toxic: 20-30% COHB Lethal: Greater than 60% COHB METHB Art 0.7 <=1.5 % [facility] Na Whole Blood 139 135 - 145 mmol/L [facility] K Whole Blood 4.2 3.5 - 5.0 mmol/L [facility] Comment: Please note: Patients with WBC >100,000 may have falsely elevated Potassium levels. Contact the Clinical Chemistry Laboratory if there are any questions. ICa Whole Blood 1.13(L) 1.15 - 1.33 mmol/L [facility] Comment: Note: ??Total bilirubin higher than 20 mg/dL may lead to falsely low ionized calcium. CL Whole Blood 106 98 - 107 mmol/L [facility] Gluc Whole Bld 147 65 - 199 mg/dL [facility] Comment:Diabetes: >=200 mg/d L plus symptoms. Lactate WB 1.2 0.5 - 2.2 mmol/L [facility] FIO2 Art 40 % [facility] PF Ratio Art 270 [facility] Blood specimen (specimen) 09/21/2016 4:42 PM EST 09/21/2016 4:42 PM EST Alirio Esparza MD CHEMISTRY ORDERABLE S [facility] [place] [address] * POCT Glucose (09/21/2016 4:07 PM EST) POC Glucose 150 65 - 199 mg/dL [facility] Comment: Supplemental ranges: <140 mg/dL before meals <180 mg/dL all other times of the day Blood specimen (specimen) 09/21/2016 4:07 PM EST 09/21/2016 4:07 PM EST Alirio Esparza MD POINT OF CARE TEST ORDERABLES Performing Organization Address [facility] Co de Phone Number [facility] [place] [address] * (ABNORMAL) Hemoglobin (09/21/2016 4:05 PM EST) Hemoglobin 9.9(L) 11.7 - 15.5 gm/dL [facility] Blood specimen (specimen) 09/21/2016 4:05 PM EST 09/21/2016 4:20 PM EST Narrative Resulting Agency Comment Spec In Lab Alirio Esparza MD HEMATOLOGY ORDERABL ES Performing Organization Address [facility] Co de Phone Number [facility] [place] [address] * Potassium (09/21/2016 4:05 PM EST) [facility] Potassium 4.6 3.5 - 5.0 mmol/L [facility] Comment: Please note: ??Patients with [...] MD CHEMISTRY ORDERABLE S Performing Organization Address [facility] Co de Phone Number [facility] [place] [address] * POCT Glucose (09/21/2016 2:52 PM EST) POC Glucose 117 65 - 199 mg/dL [facility] Comment: Supplemental ranges: <140 mg/dL before meals <180 mg/dL all other times of the day Blood specimen (specimen) 09/21/2016 2:52 PM EST 09/21/2016 2:52 PM EST Alirio Esparza MD POINT OF CARE TEST ORDERABLES Performing Organization Address [facility] Co de Phone Number [facility] [place] [address] * POCT Glucose (09/21/2016 1:51 PM EST) POC Glucose 108 65 - 199 mg/dL [facility] Comment: Supplemental ranges: <140 mg/dL before meals <180 mg/dL all other times of the day Blood specimen (specimen) 09/21/2016 1:51 PM EST 09/21/2016 1:51 PM EST Alirio Esparza MD POINT OF CARE TEST ORDERABLES Performing Organization Address [facility] de Phone Number [facility] [place] [address] * POCT Glucose (09/21/2016 12:54 PM EST) POC Glucose 128 65 - 199 mg/dL [facility] Comment: Supplemental ranges: <140 mg/dL before meals <180 mg/dL all other times of the day Blood specimen (specimen) 09/21/2016 12:54 PM EST 09/21/2016 12:54 PM EST Alirio Esparza MD POINT OF CARE TEST ORDERABLES Performing Organization Address [facility] Co de Phone Number [facility] [place] [address] * EKG 12 Lead (09/21/2016 12:26 PM EST) Ventricular rate 87 BPM MUSE SYSTEM Atrial Rate 87 BPM MUSE SYSTEM P-R Interval 256 ms MUSE SYSTEM QRS Duration 90 ms MUSE SYSTEM Q-T Interval 406 ms MUSE SYSTEM QTC Calculated (Bezet) 488 ms MUSE SYSTEM Calculated P Bittinger 24 degrees MUSE SYSTEM Calculated R Bittinger 21 degrees MUSE SYSTEM Calculated T Bittinger -5 degrees MUSE SYSTEM INTERPRETATION Sinus rhythm with 1st degree A-V block Nonspecific T wave abnormality Prolonged QT Abnormal ECG When compared with ECG of 19-MAY-2016 11:43, NM interval has increased T wave inversion now [...] course of the esophagus and below the [id number]. There is a right IJ PA catheter [...] the course of theesophagus and below the [id number]. There is a right IJ PA catheter [...] EST) pH Art 7.41 7.35 - 7.45 [facility] pCO2 Art 42 35 - [address] [facility] pO2 Art 356(H) 85 - [address] [facility] HCO3 Art 26.2(H) 20.0 - 26.0 mmol/L [facility] BE Art 1.6 -3.0 - 3.0 mmol/L [facility] Hgb Blood Gas 10.7(L) 11.7 - 15.5 gm/dL [facility] O2HB Art 98.1(H) 94.0 - 97.0 % [facility] COHB Art 0.3 % [facility] Comment: Nonsmokers: 0.5-1.5% COHB Smokers: Variable, but usually less than 10% Toxic: 20-30% COHB Lethal: Greater than 60% COHB METHB Art 0.8 <=1.5 % [facility] Na Whole Blood 140 135 - 145 mmol/L [facility] K Whole Blood 3.8 3.5 - 5.0 mmol/L [facility] Comment: Please note: Patients with WBC >100,000 may have falsely elevated Potassium levels. Contact the Clinical Chemistry Laboratory if there are any questions. ICa Whole Blood 1.15(L) 1.15 - 1.33 mmol/L [facility] Comment: Note: ??Total bilirubin higher than 20 mg/dL may lead to falsely low ionized calcium. CL Whole Blood 106 98 - 107 mmol/L [facility] Gluc Whole Bld 135 65 - 199 mg/dL [facility] Comment:Diabetes: >=200 mg/d L plus symptoms. Lactate WB 2.2 0.5 - 2.2 mmol/L [facility] FIO2 Art 100 % [facility] PF Ratio Art 356 [facility] Blood specimen (specimen) 09/21/2016 12:20 PM EST 09/21/2016 12:20 PM EST Alirio Esparza MD CHEMISTRY ORDERABLE S [facility] [place] [address] * (ABNORMAL) BLOOD GAS 2 ARTERIAL (09/21/2016 10:54 AM EST) pH Art 7.43 7.35 - 7.45 [facility] pCO2 Art 40 35 - [address] [facility] pO2 Art 297(H) 85 - [address] [facility] HCO3 Art 26.0 20.0 - 26.0 mmol/L [facility] BE Art 1.6 -3.0 - 3.0 mmol/L [facility] Hgb Blood Gas 8.6(L) 11.7 - 15.5 gm/dL [facility] O2HB Art 98.6(H) 94.0 - 97.0 % [facility] COHB Art 0.5 % [facility] Comment: Nonsmokers: 0.5-1.5% COHB Smokers: Variable, but usually less than 10% Toxic: 20-30% COHB Lethal: Greater than 60% COHB METHB Art 0.3 <=1.5 % [facility] Na Whole Blood 134(L) 135 - 145 mmol/L [facility] K Whole Blood 4.5 3.5 - 5.0 mmol/L [facility] Comment: Please note: Patients with WBC >100,000 may have falsely elevated Potassium levels. Contact the Clinical Chemistry Laboratory if there are any questions. ICa Whole Blood 1.16 1.15 - 1.33 mmol/L [facility] Comment: Note: ??Total bilirubin higher than 20 mg/dL may lead to falsely low ionized calcium. CL Whole Blood 104 98 - 107 mmol/L [facility] Gluc Whole Bld 240(H) 65 - 199 mg/dL [facility] Comment:Diabetes: >=200 mg/d L plus symptoms. Lactate WB 2.4(H) 0.5 - 2.2 mmol/L [facility] FIO2 Art 95 % [facility] Flow Art 0.[address] [facility] PF Ratio Art 313 [facility] Temp Art 36.[address] [facility] Blood specimen (specimen) 09/21/2016 10:54 AM EST 09/21/2016 10:54 AM EST Alirio Esparza MD CHEMISTRY ORDERABLE S Performing Organization Address [facility] Co de Phone Number [facility] [place] [address] * Thrombin time (09/21/2016 10:50 AM EST) Thrombin Time 19 15 - [address] [facility] Comment: A prolongation in the [...] MD HEMATOLOGY ORDERABLE S Performing Organization Address [facility] Co de Phone Number [facility] [place] [address] * Fibrinogen (09/21/2016 10:50 AM EST) Fibrinogen 228 180 - 510 mg/dL [facility] Comment: Called by: JONNATHAN, Read back by: MICHELLE ALEJANDRE_, Date/Time:09/21/16 11:11. A fibrinogen level >100 mg/dL is adequate for hemostasis in most patients without underlying bleeding disorders. Blood specimen (specimen) 09/21/2016 10:50 AM EST 09/21/2016 10:56 AM EST Narrative Resulting Agency Comment Spec In Lab Luis Enrique Quarles MD HEMATOLOGY ORDERABLE S Performing Organization Address [facility] Co de Phone Number [facility] [place] [address] * APTT (09/21/2016 10:50 AM EST) PTT 32 25 - [address] [facility] Comment: The recommended therapeutic range for full dose, unfractionated heparin at [facility] is 80 ? 114 seconds. The use of the anti-Xa (heparin) level rather than the PTT is recommended for monitoring anticoagulation intensity in critically ill patients receiving unfractionated heparin by continuous IV infusion. Blood specimen (specimen) 09/21/2016 10:50 AM EST 09/21/2016 10:56 AM EST Narrative Resulting Agency Comment Spec In Lab Luis Enrique Quarles MD HEMATOLOGY ORDERABLE S Performing Organization Address [facility] Phone Number [facility] [place] [address] * (ABNORMAL) Prothrombin Time (09/21/2016 10:50 AM EST) PT 18.7(H) 12.0 - 15.[address] [facility] Comment: An INR <2.0 indicates [...] clinical circumstances. INR 1.5(H) 0.9 - 1.1 [facility] Blood specimen (specimen) 09/21/2016 10:50 AM EST 09/21/2016 10:56 AM EST Narrative Resulting Agency Comment Spec In Lab Luis Enrique Quarles MD HEMATOLOGY ORDERABLE S [facility] [place] [address] * (ABNORMAL) Hemogram (09/21/2016 10:50 AM EST) WBC 14.7(H) 4.0 - 9.5 x10(3)/[facility] LABORATORY RBC 2.40(L) 4.00 - 5.21 x10(6)/[facility] LABORATORY Hemoglobin 7.9(L) 11.7 - 15.5 gm/dL [facility] Hematocrit 23.2(L) 35.7 - 45.8 % [facility] Comment: This result has been called to MICHELLE GRIGSBY by ASHU MORENO on 09 21 2016 at 1102, and has been read back. MCV 96.7(H) 82.6 - 94.[address] [facility] MCH 32.9(H) 27.1 - 32.[address] [facility] MCHC 34.1 31.7 - 35.0 gm/dL [facility] Platelets 117(L) 145 - 357 x10(3)/[facility] LABORATORY RDWSD 42.6 37.0 - 46.[address] [facility] RDWCV 12.1 11.5 - 14.1 % [facility] MPV 9.2 7.6 - 12.[address] [facility] nRBC % Auto 0.1 % [facility] nRBC Abs Auto 0.020(H) 0.000 - 0.000 x10(3)/[facility] LABORATORY Blood specimen (specimen) 09/21/2016 10:50 AM EST 09/21/2016 10:56 AM EST Narrative Resulting Agency Comment Spec In Lab Luis Enrique Quarles MD HEMATOLOGY ORDERABLE S Performing Organization Address City/[facility]/[place] [address] * Prepare Platelets, Apheresis (09/21/2016 10:30 AM EST) Dispensed? Yes [facility] Blood specimen (specimen) 09/21/2016 10:30 AM EST 09/21/2016 10:28 AM EST Alirio Esparza MD BLOOD BANK PRODUCT ORDERABLES Performing Organization Address [facility] [place] [address] * (ABNORMAL) BLOOD GAS 2 ARTERIAL (09/21/2016 10:05 AM EST) pH Art 7.33(L) 7.35 - 7.45 [facility] pCO2 Art 54(Critic al) 35 - [address] [facility] Comment:Noted by instrument repairer steam plant. pO2 Art 218(H) 85 - [address] [facility] HCO3 Art 27.9(H) 20.0 - 26.0 mmol/L [facility] BE Art 2.0 -3.0 - 3.0 mmol/L [facility] Hgb Blood Gas 8.6(L) 11.7 - 15.5 gm/dL [facility] O2HB Art 98.4(H) 94.0 - 97.0 % [facility] COHB Art 0.5 % [facility] Comment: Nonsmokers: 0.5-1.5% COHB Smokers: Variable, but usually less than 10% Toxic: 20-30% COHB Lethal: Greater than 60% COHB METHB Art 0.3 <=1.5 % [facility] Na Whole Blood 129(L) 135 - 145 mmol/L [facility] K Whole Blood 6.2(Criti gabrielle) 3.5 - 5.0 mmol/L [facility] Comment: Noted by instrument repairer steam plant. Please note: Patients with WBC >100,000 may have falsely elevated Potassium levels. Contact the Clinical Chemistry Laboratory if there are any questions. ICa Whole Blood 0.95(L) 1.15 - 1.33 mmol/L [facility] Comment: Note: ??Total bilirubin higher than 20 mg/dL may lead to falsely low ionized calcium. CL Whole Blood 100 98 - 107 mmol/L [facility] Gluc Whole Bld 289(H) 65 - 199 mg/dL [facility] Comment:Diabetes: >=200 mg/d L plus symptoms. Lactate WB 2.2 0.5 - 2.2 mmol/L [facility] Temp Art 37.[address] [facility] Blood specimen (specimen) 09/21/2016 10:05 AM EST 09/21/2016 10:05 AM EST Alirio Esparza MD CHEMISTRY ORDERABLE S [facility] [place] [id number] * (ABNORMAL) BLOOD GAS 2 ARTERIAL (09/21/2016 9:44 AM EST) pH Art 7.22(Criti gabrielle) 7.35 - 7.45 [facility] Comment:Noted by instrument repairer steam plant. pCO2 Art 70(Critica l) 35 - [address] [facility] Comment:Noted by instrument repairer steam [employer]. pO2 Art 224(H) 85 - [address] [facility] HCO3 Art 27.8(H) 20.0 - 26.0 mmol/L [facility] BE Art 0.0 -3.0 - 3.0 mmol/L [facility] Hgb Blood Gas 8.7(L) 11.7 - 15.5 gm/dL [facility] O2HB Art 98.5(H) 94.0 - 97.0 % [facility] COHB Art 0.6 % [facility] Comment: Nonsmokers: 0.5-1.5% COHB Smokers: Variable, but usually less than 10% Toxic: 20-30% COHB Lethal: Greater than 60% COHB METHB Art 0.3 <=1.5 % [facility] Na Whole Blood 131(L) 135 - 145 mmol/L [facility] K Whole Blood 5.9(H) 3.5 - 5.0 mmol/L [facility] Comment: Please note: Patients with WBC >100,000 may have falsely elevated Potassium levels. Contact the Clinical Chemistry Laboratory if there are any questions. ICa Whole Blood 1.00(L) 1.15 - 1.33 mmol/L [facility] Comment: Note: ??Total bilirubin higher than 20 mg/dL may lead to falsely low ionized calcium. CL Whole Blood 101 98 - 107 mmol/L [facility] Gluc Whole Bld 227(H) 65 - 199 mg/dL [facility] Comment:Diabetes: >=200 mg/d L plus symptoms. Lactate WB 2.1 0.5 - 2.2 mmol/L [facility] Blood specimen (specimen) 09/21/2016 9:44 AM EST 09/21/2016 9:44 AM EST Alirio Esparza MD CHEMISTRY ORDERABLE S Performing Organization Address [facility] Co de Phone Number [facility] [place] [address] * (ABNORMAL) Hemoglobin (09/21/2016 9:42 AM EST) Hemoglobin 7.2(L) 11.7 - 15.5 gm/dL [facility] Blood specimen (specimen) 09/21/2016 9:42 AM EST 09/21/2016 9:51 AM EST Narrative Resulting Agency Comment Spec In Lab Alirio Esparza MD HEMATOLOGY ORDERABL ES Performing Organization Address City/[facility] Co de Phone Number [facility] [place] [address] * Platelet count (09/21/2016 9:42 AM EST) Platelets 159 145 - 357 x10(3)/mc L [facility] Plat Immature % 1.6 0.0 - 7.4 % [facility] Comment: Limitation of the Immature Platelet Fraction (IPF)-May be less reliable when the platelet count is less than 49m862/uL due to statistical imprecision. The IPF value [...] in a decreased state of production. References: [employer] [employer] The Clinical Value of the Immature Platelet Fraction (IPF) in Cell Recovery Document Number [id number] 12/2010 [employer] The Role of the Immature Platelet Fraction (IPF) in the Differential Diagnosis of Thrombocytopenia, Document [id number] [id number] Blood specimen (specimen) 09/21/2016 9:42 AM EST 09/21/2016 9:51 AM EST Narrative Resulting Agency Comment Spec In Lab Alirio Esparza MD HEMATOLOGY ORDERABL ES [facility] [place] [address] * (ABNORMAL) Hematocrit (09/21/2016 9:42 AM EST) Hematocrit 21.6(L) 35.7 - 45.8 % [facility] Comment: This result has been called to MICHELLE ALEJANDRE by Serjio Frazier on 09 21 2016 at 0957, and has been read back. Blood specimen (specimen) 09/21/2016 9:42 AM EST 09/21/2016 9:51 AM EST Narrative Resulting Agency Comment Spec In Lab Alirio Esparza MD HEMATOLOGY ORDERABL ES Performing Organization Address [facility] de Phone Number [facility] [place] [address] * Fibrinogen (09/21/2016 9:42 AM EST) Fibrinogen 219 180 - 510 mg/dL [facility] Comment: Called by: JONNATHAN, Read back by: MICHELLE ALEJANDRE_, Date/Time:09/21/16 10:03_. A fibrinogen level >100 mg/dL is adequate for hemostasis in most patients without underlying bleeding disorders. Blood specimen (specimen) 09/21/2016 9:42 AM EST 09/21/2016 9:51 AM EST Narrative Resulting Agency Comment Spec In Lab Alirio Esparza MD HEMATOLOGY ORDERABL ES Performing Organization Address [facility] de Phone Number [facility] [place] [address] * (ABNORMAL) BLOOD GAS 2 ARTERIAL (09/21/2016 9:10 AM EST) pH Art 7.36 7.35 - 7.45 [facility] pCO2 Art 48(H) 35 - [address] [facility] pO2 Art 295(H) 85 - [address] [facility] HCO3 Art 26.0 20.0 - 26.0 mmol/L [facility] BE Art 0.5 -3.0 - 3.0 mmol/L [facility] Hgb Blood Gas 8.0(L) 11.7 - 15.5 gm/dL [facility] O2HB Art 98.3(H) 94.0 - 97.0 % [facility] COHB Art 1.0 % [facility] Comment: Nonsmokers: 0.5-1.5% COHB Smokers: Variable, but usually less than 10% Toxic: 20-30% COHB Lethal: Greater than 60% COHB METHB Art 0.3 <=1.5 % [facility] Na Whole Blood 135 135 - 145 mmol/L [facility] K Whole Blood 5.4(H) 3.5 - 5.0 mmol/L [facility] Comment: Please note: Patients with WBC >100,000 may have falsely elevated Potassium levels. Contact the Clinical Chemistry Laboratory if there are any questions. ICa Whole Blood 0.93(L) 1.15 - 1.33 mmol/L [facility] Comment: Note: ??Total bilirubin higher than 20 mg/dL may lead to falsely low ionized calcium. CL Whole Blood 102 98 - 107 mmol/L [facility] Gluc Whole Bld 195 65 - 199 mg/dL [facility] Comment:Diabetes: >=200 mg/d L plus symptoms. Lactate WB 1.8 0.5 - 2.2 mmol/L [facility] Temp Art 37.[address] [facility] Blood specimen (specimen) 09/21/2016 9:10 AM EST 09/21/2016 9:10 AM EST Alirio Esparza MD CHEMISTRY ORDERABLE S Performing Organization Address City/State/[facility] Co de Phone Number [facility] [place] [address] * Surgical Pathology Report (09/21/2016 9:09 AM EST) FINAL DIAGNOSIS (AP) [id number] ?Location: 3T The signing pathologist has (i) [...] ?. (R1) ??ADELITA 09/24/2016 9:[address] [facility] AORTIC STRUCTURE / Unknown 09/21/2016 9:09 AM EST 09/21/2016 9:09 AM EST Alirio Esparza MD PATHOLOGY/CYTOLOGY ORDERABLES Performing Organization Address [facility] Co de Phone Number [facility] [place] [address] * Specimen to Pathology (surgical or derm) (09/21/2016 9:09 AM EST) AP Specimen 09/21/2016 9:09 AM EST 09/21/2016 9:[address] [facility] - 09/21/2016 9:09 AM EST Specimen requisition ordered. ??Separate Pathology report to follow Alirio Esparza MD PATHOLOGY/CYTOLOGY ORDERABLES Performing Organization Address [facility]/ZIP Co de Phone Number [facility] [place] [address] * (ABNORMAL) BLOOD GAS 2 ARTERIAL (09/21/2016 8:50 AM EST) pH Art 7.41 7.35 - 7.45 [facility] pCO2 Art 33(L) 35 - 45 mmHg [facility] pO2 Art 348(H) 85 - 104 mmHg [facility] HCO3 Art 20.6 20.0 - 26.0 mmol/L [facility] BE Art -4.1(L) -3.0 - 3.0 mmol/L [facility] Hgb Blood Gas 9.5(L) 11.7 - 15.5 gm/dL [facility] O2HB Art 98.8(H) 94.0 - 97.0 % [facility] COHB Art 0.3 % [facility] Comment: Nonsmokers: 0.5-1.5% COHB Smokers: Variable, but usually less than 10% Toxic: 20-30% COHB Lethal: Greater than 60% COHB METHB Art 0.3 <=1.5 % [facility] Na Whole Blood 137 135 - 145 mmol/L [facility] K Whole Blood 4.0 3.5 - 5.0 mmol/L [facility] Comment: Please note: Patients with WBC >100,000 may have falsely elevated Potassium levels. Contact the Clinical Chemistry Laboratory if there are any questions. ICa Whole Blood 1.04(L) 1.15 - 1.33 mmol/L [facility] Comment: Note: ??Total bilirubin higher than 20 mg/dL may lead to falsely low ionized calcium. CL Whole Blood 105 98 - 107 mmol/L [facility] Gluc Whole Bld 93 65 - 199 mg/dL [facility] Comment:Diabetes: >=200 mg/d L plus symptoms. Lactate WB 1.0 0.5 - 2.2 mmol/L [facility] Blood specimen (specimen) 09/21/2016 8:50 AM EST 09/21/2016 8:50 AM EST Alirio Esparza MD CHEMISTRY ORDERABLE S [facility] [place] [address] * (ABNORMAL) BLOOD GAS 2 ARTERIAL (09/21/2016 8:18 AM EST) pH Art 7.42 7.35 - 7.45 [facility] pCO2 Art 36 35 - [address] [facility] pO2 Art 283(H) 85 - [address] [facility] HCO3 Art 22.8 20.0 - 26.0 mmol/L [facility] BE Art -2.0 -3.0 - 3.0 mmol/L [facility] Hgb Blood Gas 12.6 11.7 - 15.5 gm/dL [facility] O2HB Art 99.0(H) 94.0 - 97.0 % [facility] COHB Art 0.6 % [facility] Comment: Nonsmokers: 0.5-1.5% COHB Smokers: Variable, but usually less than 10% Toxic: 20-30% COHB Lethal: Greater than 60% COHB METHB Art 0.0 <=1.5 % [facility] Na Whole Blood 144 135 - 145 mmol/L [facility] K Whole Blood 4.0 3.5 - 5.0 mmol/L [facility] Comment: Please note: Patients with WBC >100,000 may have falsely elevated Potassium levels. Contact the Clinical Chemistry Laboratory if there are any questions. ICa Whole Blood 1.22 1.15 - 1.33 mmol/L [facility] Comment: Note: ??Total bilirubin higher than 20 mg/dL may lead to falsely low ionized calcium. CL Whole Blood 106 98 - 107 mmol/L [facility] Gluc Whole Bld 102 65 - 199 mg/dL [facility] Comment:Diabetes: >=200 mg/d L plus symptoms. Lactate WB 1.2 0.5 - 2.2 mmol/L [facility] FIO2 Art 95 % [facility] Flow Art 1.[address] [facility] PF Ratio Art 298 [facility] Temp Art 35.[address] [facility] Blood specimen (specimen) 09/21/2016 8:18 AM EST 09/21/2016 8:18 AM EST Alirio Esparza MD CHEMISTRY ORDERABLE S Performing Organization Address [facility]/ZIP Co de Phone Number [facility] [place] [address] * Prepare RBC (09/21/2016 7:05 AM EST) Dispensed? Yes [facility] Blood specimen (specimen) 09/21/2016 7:05 AM EST 09/21/2016 7:02 AM EST Alirio Esparza MD BLOOD BANK PRODUCT ORDERABLES Performing Organization Address [facility]/ZIP Co de Phone Number [facility] [place] [address] * POCT Glucose (09/21/2016 6:42 AM EST) POC Glucose 104 65 - 199 mg/dL [facility] Comment: Supplemental ranges: <140 mg/dL before meals <180 mg/dL all other times of the day Blood specimen (specimen) 09/21/2016 6:42 AM EST 09/21/2016 6:42 AM EST Alirio Esparza MD POINT OF CARE TEST ORDERABLES Performing Organization Address [facility] Co de Phone Number [facility] [place] [address] documented in this encounter Visit Diagnoses Not [...] dose on Wed09/21/16 at 1230, Until Discontinued, [place] teeth, Routine Given 09/25/2016 9:40 AM EST [...] VALDO)1708 (Given - Provider: Federico Apple, VALDO) 0005 [...] [phone] (Due - Provider: Kendall Martínez [facility]) aspirin chewable tablet 81 mg(Linked Group 1) [...] OPEN, Routine 0602 (Given - Provider: Marcie Frazier, VALDO) 0602 (Given - Provider: Alie Whitfield RN) [...] dose on Wed09/21/16 at 1230, Until Discontinued, [place] teeth, Routine 0900 (Not Given - Provider: [...] Apple, VALDO) 0826 (Given - Provider: Marek Barnes RN)1622 (Given - Provider: Chaya Hill RN) 0941 (Given - Provider: Joselyn Caceres, RN) furosemide (LASIX) tablet 20 mg 20 mg, Oral, DAILY, 7 doses, First dose on Wed09/26/16 at 0900, Last dose on Wed10/02/16 at 0900, Routine magnesium hydroxide (MILK OF MAGNESIA) oral suspension 10 mL 10 mL, Oral, DAILY, First dose on Wed09/23/16 at 0900, Until Discontinued, Post-op day 2. Do not use with renal insufficiency., Routine 08 (Given - Provider: Elsa Miguel RN) 09 (Not Given - Provider: Marek Barnes RN - Reason: Patient/family refused) 0940 (Not Given - Provider: oJselyn Caceres RN - Reason: Patient/family refused) meTOPROLOL [...] (See Alternative - Provider: Marek Barnes RN) 09 (See Alternative - Provider: Joselyn Caceres RN) pantoprazole (PROTONIX) tablet 40 mg(Linked Group 2) 40 mg, Oral, DAILY, First dose on Wed09/21/16 at 1230, Until Discontinued, DO NOT CRUSH OR OPEN If unable to take PO, may give IV 0817 (Given - Provider: Elsa Miguel RN) 0829 (Given - Provider: Marek Barnes, VALDO) 0941 (Given - Provider: Joselyn Caceres RN) potassium chloride (K-DUR/KLOR-CON) extended release tablet 10 [...] Routine documented in this encounter Care Teams Weapons Mechanic Relationship Specialty Start Date End Date Deborah Quiroga APRN PCP - General Family Medicine 03/24/16 02/04/23 documented as of this encounter
--- OUTSIDE RECORDS SUMMARY | 2024-03-02 14:01 | XMS_ITS | Encounter Summary ---
[facility] Organization [facility] [place] [address] Care Team Providers Care Glass Robot Operator Name Role Phone Deborah Quiroga APRN Primary Care Provider [phone] Encounter Details Date Type Department Care Team (Late st Contact Info) Description 08/18/2016 4:20 PM EST Clinical [place] [phone] Social History Tobacco Use Types Packs/Day Years [...] 11:30 AM EST Office [place] [address] Magdalena Peralta MD [facility] [place] [address] 03/01/2025 4:15 PM EDT Office Visit Dermatology at [place] [address] [place] [phone] Marek Bonilla MD [address] [place] [address] documented as of this encounter Visit Diagnoses Not on filedocumented in this encounter Care Teams Glass Robot Operator Relationship Specialty Start Date End Date Deborah Quiroga APRN PCP - General Family Medicine 03/24/16 02/04/23 documented as of this encounter
--- OUTSIDE RECORDS SUMMARY | 2024-03-02 14:01 | XMS_ITS | Encounter Summary ---
Author Organization [facility] Address [facility] [place] [address] Care Team Providers Care Travel Clerk Name Role Phone Deborah Quiroga APRN Primary Care Provider Encounter Details Date Type Department Care Team (Late st Contact Info) Description 07/17/2016 9:00 AM EST Office Visit Hematology [place] [address] Markel Borjas MD [facility] [address] [place] [address] Neutropenia, unspecified type Social History Tobacco Use [...] 07/17/2016 9:00 AM EST Hematology Outpatient Clinic [facility] Hematology Outpatient Consult Note CC: [...] TOUCH PREP, CLOT SECTION, CORE ??BIOPSY); [OSR# [id number], COLLECTED 06/23/2016, 19 SLIDES]: ?1. 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 Labs will be drawn at [facility] next week Imaging As above - [...] leukopenia. Will consi kanwal talking to pt's key account director about a switch from ACEI to ARB [...] the original note were not included. N [facility] HEM ONC [facility] [address] Date: 07/17/16 Patient Name: Purnima Thacker : [...] 07/20/2016 Signature: Markel Borjas MD beeper # [id number] documented in this encounter Plan of Treatment Upcoming Encounters Date Type Department Care Team (Late st Contact Info) Description 06/05/2024 11:30 AM EST Office [place] [phone] Magdalena Peralta MD [facility] [place] [address] 03/01/2025 4:15 PM EDT Office Visit Dermatology at [place] [address] [place] [phone] Marek Bonilla MD [address], [address] [place] [address] documented as of this encounter Results * [...] MD HEMATOLOGY ORDERAB LES Performing Organization Address [facility] Co de Phone Number EXTERNAL LAB * Mononucleosis Screen (07/20/2016 10:30 AM EST) Pathologist [facility] [place] Screen neg neg - neg EXTERNAL LAB Blood specimen (specimen) 07/20/2016 10:30 AM EST Markel Borjas MD CHEMISTRY ORDERABL ES Performing Organization Address [facility] Co de Phone Number EXTERNAL LAB * Copper, serum (07/20/2016 10:30 AM EST) Pathologist [facility] Copper 1.09 0.75 - 1.45 EXTERNAL LAB Blood specimen (specimen) 07/20/2016 10:30 AM EST Markel Borajs MD CHEMISTRY ORDERABL ES Performing Organization Address [facility] Co de Phone Number EXTERNAL LAB * CMV PCR, Quantitative (07/20/2016 10:30 AM EST) CMV PCR,Quantitati ve undetected EXTERNAL LAB Blood specimen (specimen) 07/20/2016 10:30 AM EST Markel Borjas MD IMMUNOLOGY ORDERAB LES Performing Organization Address City/[facility]/ZIP Co de Phone Number EXTERNAL [...] type documented in this encounter Care Teams Travel Clerk Relationship Specialty Start Date End Date Deborah Quiroga, PORTABLE TRACK CREW CHIEF PCP - General Family Medicine 03/24/16 02/04/23 documented as of this encounter
--- OUTSIDE RECORDS SUMMARY | 2024-03-02 14:01 | XMS_ITS | Encounter Summary ---
Author Organization [facility] Address [facility] [place] [address] Care Team Providers Care Liquefaction Supervisor Name Role Phone Deborah Quiroga ANURAG Primary Care Provider [phone] Encounter Details Date Type Department Care Team (Latest Contact Info) Description 08/18/2016 4:40 PM EST Laboratory [place] [phone] Aortic valve stenosis, unspecified etiology Social History [...] 11:30 AM EST Office [place] [phone] Magdalena Peralta MD [facility] [place] [address] 03/01/2025 4:15 PM EDT Office Visit Dermatology at [place] [address] [facility] [place] [phone] Marek Bonilla MD [address] [facility] [place] [address] documented as of this encounter Procedures Procedure Name Priority Date/Time Associated Diagnosis Comments ABORH RECHECK STATUS Routine 08/18/2016 4:50 PM EST TYPE AND SCREEN, SDP (FUTURE SURGERY, [facility] SAME DAY PROGRAM ONLY) Routine 08/18/2016 4:50 [...] 4:50 PM EST) ABORH Type Recheck Completed [facility] Blood specimen (specimen) 08/18/2016 4:50 PM EST 08/18/2016 5:27 PM EST Narrative Resulting Agency Comment Spec In Lab Alirio Esparza MD BLOOD BANK LAB [place]ETH ALEJO Performing Organization Address [facility] [place] [address] * Antibody screen (08/18/2016 4:50 PM EST) Ab Screen Interp Negative [facility] Expires at 2359 on: 09/24/2016 [facility] Comment: Corrected from 09/17/16 12:00 [Unknown] on 09/09/16 02:32 by Shireen Treviño Blood specimen (specimen) 08/18/2016 4:50 PM EST 08/18/2016 5:11 PM EST Narrative Resulting Agency Comment Spec In Lab Alirio Espazra MD BLOOD BANK LAB [place]JO Performing Organization Address City/[facility]/ZIP Co de Phone Number [facility] [place] [address] * ABO/Rh Typing (08/18/2016 4:50 PM EST) ABORH Type B Pos [facility] Blood specimen (specimen) 08/18/2016 4:50 PM EST 08/18/2016 5:11 PM EST Narrative Resulting Agency Comment Spec In Lab Alirio Esparza MD BLOOD BANK LAB EBTH ALEJO [facility] [place] [address] * Basic Metabolic Panel (non-fasting) (08/18/2016 4:50 PM EST) Glucose Lvl 82 65 - 199 mg/dL [facility] Comment:Diabetes: >=200 mg/d L plus symptoms BUN 12 8 - 18 mg/dL [facility] Creatinine 0.87 0.70 - 1.20 mg/dL [facility] Comment: Please note that the pediatric reference intervals supplied above were not validated at [facility]. Results from pediatric patients should be interpreted in conjunction to the patient's age, height and muscle mass. Sodium 142 135 - 145 mmol/L [facility] [...] 10.5 mg/dL [facility] Estimated GFR >60 >=60 [place] [...] the following links into your internet browser. [email or web address] Blood specimen (specimen) 08/18/2016 4:50 PM EST 08/18/2016 5:03 PM EST Narrative Resulting Agency Comment Spec In Lab Alirio Esparza MD CHEMISTRY ORDERABLE S Performing Organization Address City/State/[facility] Co de Phone Number [facility] [address] documented in this encounter Visit Diagnoses Diagnosis Aortic valve stenosis, unspecified etiology documented in this encounter Care Teams Liquefaction Supervisor Relationship Specialty Start Date End Date Deborah Quiroga APRN PCP - General Family Medicine 03/24/16 02/04/23 documented as of this encounter
--- OUTSIDE RECORDS SUMMARY | 2024-03-02 14:01 | XMS_ITS | Encounter Summary ---
Author Organization [facility] Address [facility] [place] [address] Care Team Providers Care Nurse Head Name Role Phone Deborah Quiroga APRN Primary Care Provider [phone] Encounter Details Date Type Department Care Team (Late st Contact Info) Description 08/04/2016 External Results Hematology [place] [address] Alexandrea Greenwood RN Neutropenia, unspecified type Social [...] 11:30 AM EST Office [place] [address] Magdalena Peralta MD [facility] [place] [address] 03/01/2025 4:15 PM EDT Office Visit Dermatology at [address] [place] [phone] Marek Bonilla MD [address] [facility] [place] [address] documented as of this encounter Procedures Procedure [...] type documented in this encounter Care Teams Nurse Head Relationship Specialty Start Date End Date Deborah Quiroga APRN PCP - General Family Medicine 03/24/16 02/04/23 documented as of this encounter
--- OUTSIDE RECORDS SUMMARY | 2024-03-02 14:01 | XMS_ITS | Encounter Summary ---
Author Organization [facility] Address [facility] [place] [address] Care Team Providers Care Lip Cutter And Scorer Name Role Phone Ashley Quirogan Cornelius ANURAG Primary Care Provider [phone] Encounter Details Date Type Department Care Team (Late st Contact Info) Description 08/11/2016 Telephone Hematology [place] [phone] Markel Borjas MD [facility] [address] [place] [address] Social History Tobacco Use Types Packs/Day Years [...] AM EST Office [place] [address] Magdalena Peralta MD [facility] [place] [address] 03/01/2025 4:15 PM EDT Office Visit Dermatology at [place] [address] [facility] [place] [address] Marek Bonilla MD [address] [place] [address] documented as of this encounter Visit Diagnoses Not on filedocumented in this encounter Care Teams Lip Cutter And Scorer Relationship Specialty Start Date End Date Deborah Quiroga APRN PCP - General Family Medicine 03/24/16 02/04/23 documented as of this encounter
--- OUTSIDE RECORDS SUMMARY | 2024-03-02 14:01 | XMS_ITS | Encounter Summary ---
Author Organization [facility] Address [facility] [place] [address] Care Team Providers Care Car Dumper Operator Name Role Phone Junaid Deborahazc Shields APRN Primary Care Provider [phone] Reason for Visit * Reason Comments Schedule Office Case * Consultation (Routine) - Closed Specialty Diagnoses / Procedures Referred By Contac t Referred To Contact Hematology and Oncology Diagnoses Leukopenia Neutropenia LEUKOPENIA W/NEUTROPENIA Procedures TC PEGFILGRASTIM, 6MG, INJECTION LEUKOPENIA W/NEUTROPENIA Alirio Esparza MD [facility] [place] [address] Mario Alberto Ramos Jr., MD [facility] DR [place] [address] Referral ID Status Reason Start Date Expiration Date V isits Requested Visits Authorized [id number] Closed Consult, Test & Treat 07/17/2016 07/17/2017 1 1 Encounter Details Date Type Department Care Team (Late st Contact Info) Description 06/09/2016 3:00 PM EST Office Visit [place] [address] Mario Alberto Ramos Jr., MD [facility] [place] [address] Cyclical neutropenia Social History Tobacco Use Types [...] 06/09/2016 3:00 PM EST Hematology Outpatient Clinic [facility] Hematology Outpatient Consult Note CC: [...] Unknown See Comment Flow Cytometry Report Unknown [id number] ... HematoPathology: Flow Cytometry DIAGNOSIS 1. No [...] 11:30 AM EST [place] [address] Magdalena Peralta MD [facility] [place] [address] 03/01/2025 4:15 PM EDT Office Visit Dermatology at [place] [address] [place] [address] Marek Bonilla MD [address] [place] [address] documented as of this encounter Procedures Procedure [...] (06/09/2016 4:53 PM EST) Flow Cytometry Report [id number] ?Location: The signing pathologist has (i) examined the relevant preparation(s) for the specimen(s) and (ii) rendered or confirmed the diagnosis(es). . ?Flow Cytometry DIAGNOSIS 1. ??No increased or abnormal immunophenotype T/NK/LGL or monoclonal B-cell ?? populations identified. 2. No increased blast population present (see Discussion). Electronically signed by: ??Tod CULP, Andreina Corina Verified: ??06/10/2016 ?Hematopathologist DISCUSSION The majority of [...] by the Clinical Flow Cytometry Laboratory at [facility]. It has not been cleared or approved [...] high complexity clinical laboratory testing. SPECIMEN PROCESSING [id number] Cells for immunophenotypic analysis were derived from peripheral blood. ??CD45 vs side scatter gating was utilized to identify a lymphoid analysis region that comprises approximately 49-51% of all cells. The following markers were assessed: CD2, CD3, CD4, CD5, CD7, CD8, CD10, CD16, CD19, CD45, CD56, CD57, kappa light chain, and lambda light chain. CLINICAL INFORMATION 60 yo female with neutropenia. LGL panel requested. [facility] 06/09/2016 4:53 PM EST Mario Alberto Ramos Jr., MD PATHOLOGY/CYTOLOGY O RDERABLES Performing Organization Address [facility]/[place] [address] * Scan, Peripheral Blood (06/09/2016 4:53 PM EST) [facility] Plat Estimate Normal [facility] RBC Morphology Normal [facility] Blood specimen (specimen) 06/09/2016 4:53 PM EST 06/09/2016 5:00 PM EST Narrative Resulting Agency Comment Spec In Lab Mario Alberto Ramos Jr., MD HEMATOLOGY ORDERABLE S Performing Organization Address [facility] Co de Phone Number [facility] [place] [address] * (ABNORMAL) Differential, Automated (06/09/2016 4:53 PM EST) [facility] Neutrophils % 27.7 % [facility] Neutr Abs (ANC) 0.48(Crit ical) 1.70 - 6.10 x10(3)/mc L [facility] Comment: Matches Previous Results.. This result has been called to NOT CALLED by Jesusita Argueta on 06 09 2016 at 1817, and has not been read back. MATCHES PREVIOUS RESULTS Lymphocytes % 57.2 % [facility] Lymphocytes Abs 1.0 0.9 - 3.2 x10(3)/mc L [facility] Monocytes % 13.3 % [facility] Monocyte Abs 0.2(L) 0.3 - 0.9 x10(3)/[facility] Eosinophils % 0.6 % [facility] Eosinophils Abs 0.0 0.0 - 0.4 x10(3)/[facility] Basophils % 1.2 % [facility] Basophils Abs 0.0 0.0 - 0.1 x10(3)/[facility] Immature Gran % 0.00 % [facility] Comment: Immature granulocytes(IG's)percentage and absolute count will include metamyelocytes, myelocytes, and promyelocytes. Blood smears from CBCs yielding IG's will be scanned manually for concordance. If this scan disagrees with the automated IG or if promyelocytes are noted, a manual differential will be performed. Amanda Gran Abs 0.00 0.00 - 0.04 x10(3)/[facility] Blood specimen (specimen) 06/09/2016 4:53 PM EST 06/09/2016 5:00 PM EST Narrative Resulting Agency Comment Spec In Lab Mario Alberto Ramos Jr., MD HEMATOLOGY ORDERABLE S [facility] [place] [address] * (ABNORMAL) Hemogram (06/09/2016 4:53 PM EST) WBC 1.7(Critic al) 4.0 - 9.5 x10(3)/[facility] RBC 3.92(L) 4.00 - 5.21 x10(6)/[facility] Hemoglobin 12.4 11.7 - 15.5 gm/dL [facility] Hematocrit 36.7 35.7 - 45.8 % [facility] MCV 93.6 82.6 - 94.4 fL [facility] MCH 31.6 27.1 - 32.0 pg [facility] MCHC 33.8 31.7 - 35.0 gm/dL [facility] Platelets 234 145 - 357 x10(3)/[facility] LABORATORY RDWSD 39.8 37.0 - 46.0 [facility] LABORATORY RDWCV 11.8 11.5 - 14.1 % [facility] MPV 8.6 7.6 - 12.9 [facility] LABORATORY nRBC % Auto 0.0 % [facility] nRBC Abs Auto 0.000 0.000 - 0.000 x10(3)/[facility] Blood specimen (specimen) 06/09/2016 4:53 PM EST 06/09/2016 5:00 PM EST Narrative Resulting Agency Comment Spec In Lab Mario Alberto Ramos Jr., MD HEMATOLOGY ORDERABLE S Performing Organization Address City/[facility]/ZIP [place] [address] * Immunophenotyping Flow Cytometry (06/09/2016 4:53 PM EST) Immunophenotyping Flow See Comment [facility] Comment: When completed by the Pathologist, the Flow Cytometry Report ([id number]) will display under the Pathology Results section within [facility]. Specimen of unknown material (specimen) 06/09/2016 4:53 PM EST 06/09/2016 5:00 PM EST Narrative Resulting Agency Comment Spec In Lab Mario Alberto Ramos Jr., MD HEMATOLOGY ORDERABLE S [facility] [place] [address] documented in this encounter Visit Diagnoses Diagnosis Cyclical neutropenia Cyclic neutropenia documented in this encounter Care Teams Car Dumper Operator Relationship Specialty Start Date End Date Deborah Quiroga, SUPERVISOR [place] PCP - General Family Medicine 03/24/16 02/04/23 documented as of this encounter
--- OUTSIDE RECORDS SUMMARY | 2024-03-02 14:01 | XMS_ITS | Encounter Summary ---
Author Organization [facility] Address [facility] [place] [address] Care Team Providers Care Kosher Sealer Name Role Phone Ashley Quirogan Sylvia ANURAG Primary Care Provider [phone] Encounter Details Date Type Department Care Team (Late st Contact Info) Description 07/13/2016 External [place] [phone] Provider, Scanning Social History Tobacco Use Types [...] 11:30 AM EST Office [place] [address] Magdalena Peralta MD [facility] [place] [address] 03/01/2025 4:15 PM EDT Office Visit Dermatology at [place] [address] [place] [address] Marek Bonilla MD [address] [facility] [place] [address] documented as of this encounter Procedures Procedure Name Priority Date/Time Associated Diagnosis Comments SURGICAL PATHOLOGY SCAN Routine 07/13/2016 documented in this encounter Results * Scan Doc: Surgical Pathology (07/13/2016) Nitesh Pina Jr., MD MEDIA MGR SCAN EXT O RDR/RSLT documented in this encounter Visit Diagnoses Not on filedocumented in this encounter Care Teams Kosher Sealer Relationship Specialty Start Date End Date Deborah Quiroga, CANVAS SHRINKER PCP - General Family Medicine 03/24/16 02/04/23 documented as of this encounter
--- OUTSIDE RECORDS SUMMARY | 2024-03-02 14:01 | XMS_ITS | Encounter Summary ---
[place] [address] Care Team Providers Care Lap Winder Name Role Phone Deborah Quiroga ANURAG Primary Care Provider [phone] Encounter Details Date Type Department Care Team (Late st Contact Info) Description 09/11/2016 Orders Only Hematology [place] [address] Alexandrea Greenwood RN Social History [...] the original note were not included. [facility] [phone] Date: 09/11/16 Patient Name: Onesimo Thacker : 1955 Diagnosis: Neutropenia Referral to [site]: [facility] Orders: ? Growth factor: [x] Neulasta 6mg SQ injection x 1 on 09/16/16 Signature: Markel Borjas MD beeper # [id number] Co-signature [if needed]: documented in this encounter Plan of Treatment Upcoming Encounters Date Type Department Care Team (Late st Contact Info) Description 06/05/2024 11:30 AM EST Office Visit [place] [address] Magdalena Peralta MD [facility] [place] [address] 03/01/2025 4:15 PM EDT Office Visit Dermatology at [place] [address] [place] [address] Marek Bonilla MD [address] [facility] [place] [address] documented as of this encounter Procedures Procedure Name Priority Date/Time Associated Diagnosis Comments TRANSESOPHAGEAL ECHOCARDIOGRAM (GAVINO) Routine 09/22/2016 documented in this encounter Results * Transesophageal Echocardiogram (GAVINO) (09/22/2016) Anatomical Region Laterality Modality Other 09/22/2016 Narrative 09/22/2016 8:30 AM EST Procedure: ?Transesophageal Echocardiogram Patient: ?ANDREW ONESIMO M ? (Age): 1955(61y) Med Rec#: ? [id number] ?Sex: ?M ? Site Loc: ? [facility] ?Ht / Wt: ??(cm)/ (kg) ? Pt. Loc: ?OR ? Study Date: ?? 09/21/2016 ?Pt. Type: Tape: ? Referring: Alirio Francisco Reading: Henrik Yarbrough ([id number]) Steam Clean Machine Operator: Jacobo Patel ([id number]) Interpreting Fellow: Jacobo Patel ([id number]) Diagnosis: *Aortic valve disorders (424.1) CPT Codes: *Echo GAVINO Full (13364) Indication: ?? AVR for severe Rhythm: ? [...] ? Mid-Inferior ?Normal ? Mid-Inferoseptal ?Normal ? [place]-Septal ? Normal ? [place]-Anterior ? Normal ? [place]-Lateral ?Normal ? [place]-Inferior ? Normal ? [place]-Tip ?Normal ? This report has been electronically signed by: Henrik Yarbrough M.D. ? 09/22/2016 08:30:41 Images reviewed and interpretation verified [facility] Cardiac Ultrasound Laboratory Procedure Note Henrik Yarbrough MD - 09/22/2016 Procedure: Transesophageal Echocardiogram Patient: ANDREW Mejias DOB(Age): 1955(61y) Med Rec#: [id number] Sex: M Site Loc: [facility] Ht / Wt: (cm)/ (kg) Pt. Loc: OR Study Date: 09/21/2016 Pt. Type: Tape: Referring: Alirio Francisco Reading: Henrik Yarbrough ([id number]) Steam Clean Machine Operator: Jacobo Patel ([id number]) Interpreting Fellow: Jacobo Patel ([id number]) Diagnosis: *Aortic valve disorders (424.1) CPT Codes: *Echo GAVINO Full (49456) Indication: AVR for severe Rhythm: Sinus SUMMARY: [...] Normal Mid-Posterolateral Normal Mid-Inferior Normal Mid-Inferoseptal Normal [place]-Septal Normal [place]-Anterior Normal [place]-Lateral Normal [place]-Inferior Normal [place]-Tip Normal This report has been electronically signed by: Henrik Yarbrough M.D. 09/22/2016 08:30:41 Images reviewed and interpretation verified [facility] Unknown ECHO ORDERABLES documented in this encounter Visit Diagnoses Not on filedocumented in this encounter Care Teams Lap Winder Relationship Specialty Start Date End Date Deborah Quiroga APRN PCP - General Family Medicine 03/24/16 02/04/23 documented as of this encounter
--- OUTSIDE RECORDS SUMMARY | 2024-03-02 14:01 | XMS_ITS | Encounter Summary ---
Author Organization [facility] Address [facility] [place] [address] Care Team Providers Care Beam Dyer Recessed Vat Name Role Phone Deborah Quiroga APRN Primary Care Provider [phone] Encounter Details Date Type Department Care Team (Late st Contact Info) Description 07/31/2016 Orders Only Hematology [place] [address] Alexandrea Greenwood RN Neutropenia, unspecified type Social [...] EST Office [place] [address] Magdalena Peralta MD [facility] [address] [place] [address] 03/01/2025 4:15 PM EDT Office Visit Dermatology at [address] [place] [address] Marek Bonilla MD [address] [facility] [place] [address] documented as of this encounter Results * [...] type documented in this encounter Care Teams Beam Dyer Recessed Vat Relationship Specialty Start Date End Date Deborah Quiroga APRN PCP - General Family Medicine 03/24/16 02/04/23 documented as of this encounter
--- OUTSIDE RECORDS SUMMARY | 2024-03-02 14:01 | XMS_ITS | Encounter Summary ---
[place] [address] Care Team Providers Care Monotypist Name Role Phone Ashley Quirogan Cornelius ANURAG Primary Care Provider [phone] Reason for Visit * Reason Onset Date Comments Medication Management 09/14/2016 Encounter Details Date Type Department Care Team (Late st Contact Info) Description 09/14/2016 Telephone Hematology [place] [address] Alexandrea Greenwood, electrical project manager Management Social History Tobacco Use Types Packs/Day [...] 09/14/2016 9:12 AM EST Message received from executive legal secretary: Purnima called, asking for clarification on [...] 11:30 AM EST Office [place] [address] Magdalena Peralta MD [facility] [place] [address] 03/01/2025 4:15 PM EDT Office Visit Dermatology at [place] [address] [facility] [place] [address] Marek Bonilla MD [address] [place] [address] documented as of this encounter Visit Diagnoses Not on filedocumented in this encounter Care Teams Monotypist Relationship Specialty Start Date End Date Deborah Quiroga APRN PCP - General Family Medicine 03/24/16 02/04/23 documented as of this encounter
--- OUTSIDE RECORDS SUMMARY | 2024-03-02 14:01 | XMS_ITS | Encounter Summary ---
Author Organization [facility] Address [facility] [place] [address] Care Team Providers Care Medical Office Receptionist Name Role Phone Ashley Quirogazac Shields APRN Primary Care Provider [phone] Encounter Details Date Type Department Care Team (Latest Contact Info) Description 06/19/2016 - 06/19/2016 11:59 PM EST Hospital Encounter [place] [address] Nitesh Pina Jr., MD [facility] [address] [place] [address] Pain Discharge Disposition: Home Social History Tobacco [...] 11:30 AM EST Office Visit [place] [address] Magdalena Peralta MD [facility] [place] [address] 03/01/2025 4:15 PM EDT Office Visit Dermatology at [address] [place] [address] Marek Bonilla MD [address] [facility], [place] [address] documented as of this encounter Procedures Procedure Name Priority Date/Time Associated Diagnosis Comments FILM LIBRARY STORAGE ONLY CT CHEST ABDOMEN PELVIS Routine 06/19/2016 12:00 AM EST Pain documented in this encounter Results * Film Library- Storage Only CT Chest Abdomen Pelvis (06/19/2016 12:00 AM EST) Narrative [facility] - 06/20/2016 8:53 AM EST This exam is for storage only and is auto-finalizing. Nitesh Pina Jr., MD IMG FILM LIBRARY ORD ERABLES [place], [place] documented in this encounter Visit Diagnoses Diagnosis Pain Generalized pain documented in this encounter Care Teams Medical Office Receptionist Relationship Specialty Start Date End Date Deborah Quiroga, INSTRUMENT ASSEMBLY SUPERVISOR PCP - General Family Medicine 03/24/16 02/04/23 documented as of this encounter
--- OUTSIDE RECORDS SUMMARY | 2024-03-02 14:01 | XMS_ITS | Encounter Summary ---
[place] [address] Care Team Providers Care Hoist Mechanic Name Role Phone Ashley Quirogan Cornelius ANURAG Primary Care Provider [phone] Reason for Visit * Reason Onset Date Comments Medical Care Coordination 09/14/2016 Encounter Details Date Type Department Care Team (Late st Contact Info) Description 09/14/2016 Telephone Hematology [place] [address] Alexandrea Greenwood RN Medical Care Coordination Social [...] 9:10 AM EST Message received from secretary of state: Injection/Infusion Referral Call placed to [facility] Infusion Room Spoke charis Bragg. Services to be provided for pt are: Miles 09/16/16 Mhasa confirmed they would provide services to pt and would contact with appointment time. Pt aware to expect the phone call ??orders faxed to [phone]). documented in this encounter Plan of Treatment Upcoming Encounters Date Type Department Care Team (Late st Contact Info) Description 06/05/2024 11:30 AM EST Office Visit [place] [address] Magdalena Peralta MD [facility] [place] [address] 03/01/2025 4:15 PM EDT Office Visit Dermatology at [place] [address] [facility] [place] [address] Marek Bonilla MD [address] [place] [address] documented as of this encounter Visit Diagnoses Not on filedocumented in this encounter Care Teams Hoist Mechanic Relationship Specialty Start Date End Date Deborah Quiroga APRN PCP - General Family Medicine 03/24/16 02/04/23 documented as of this encounter
--- OUTSIDE RECORDS SUMMARY | 2024-03-02 14:01 | XMS_ITS | Encounter Summary ---
Author Organization [facility] Address [facility] [place] [address] Care Team Providers Care Packing Line Worker Name Role Phone Deborah Quiroga APRN Primary Care Provider [phone] Encounter Details Date Type Department Care Team (Late st Contact Info) Description 08/18/2016 Orders Only [place] [address] Alirio Esparza MD [facility] [place] [address] Aortic valve stenosis, unspecified etiology Social History [...] 11:30 AM EST Office [place] [address] Magdalena Peralta MD [facility] [address] 03/01/2025 4:15 PM EDT Office Visit Dermatology at [address] [place] [address] Marek Bonilla MD [address] [facility] [address], [place] [address] documented as of this encounter Results * Basic Metabolic Panel (non-fasting) (08/18/2016 4:50 PM EST) Glucose Lvl 82 65 - 199 mg/dL [facility] Comment:Diabetes: >=200 mg/d L plus symptoms BUN 12 8 - 18 mg/dL [facility] Creatinine 0.87 0.70 - 1.20 mg/dL [facility] Comment: Please note that the pediatric reference intervals supplied above were not validated at [facility]. Results from pediatric patients should be interpreted in conjunction to the patient's age, height and muscle mass. Sodium 142 135 - 145 mmol/L [facility] Potassium 3.8 3.5 - 5.0 mmol/L [facility] Comment: Please note: ??Patients with WBC >100,000 may have falsely elevated Potassium levels. ??For accurate Potassium quantification in these patients send serum separator tube (gold top) for subsequent determinations. ??Contact the Clinical Chemistry Laboratory if there are any questions. Chloride 102 98 - 107 mmol/L [facility] CO2 26 22 - 31 mmol/L [facility] Anion Gap 14 5 - 15 mmol/L [facility] Calcium 9.7 8.5 - 10.5 mg/dL [facility] Estimated GFR >60 >=60 [facility] Comment: This estimated GFR [...] the following links into your internet browser. [email or web address] Blood specimen (specimen) 08/18/2016 4:50 PM EST 08/18/2016 5:03 PM EST Narrative Resulting Agency Comment Spec In Lab Alirio Esparza MD CHEMISTRY ORDERABLE S Performing Organization Address City/State/[facility] Co de Phone Number [facility] [place] [address] documented in this encounter Visit Diagnoses Diagnosis Aortic valve stenosis, unspecified etiology documented in this encounter Care Teams Packing Line Worker Relationship Specialty Start Date End Date Deborah Quiroga APRN PCP - General Family Medicine 03/24/16 02/04/23 documented as of this encounter
--- OUTSIDE RECORDS SUMMARY | 2024-03-02 14:01 | XMS_ITS | Encounter Summary ---
[place] [address] Care Team Providers Care Farm Instructor Name Role Phone Deborah Quiroga ANURAG Primary Care Provider [phone] Reason for Visit * Reason Onset Date Comments Medical Care Coordination 07/31/2016 Encounter Details Date Type Department Care Team (Late st Contact Info) Description 07/31/2016 Telephone Hematology [place] [address] Alexandrea Greenwood RN Medical Care Coordination Social [...] 08/04/15 RN spoke with Aydee of the [facility] lab who states they can draw pt's cbc on 08/04/15, RN faxed lab req to [phone] at Aydee's request. RN instructed pt on Dr. Borjas's direction above. Pt verbalized understanding. documented in this encounter Plan of Treatment Upcoming Encounters Date Type Department Care Team (Late st Contact Info) Description 06/05/2024 11:30 AM EST Office [place] [address] Magdalena Peralta MD [facility] [place] [address] 03/01/2025 4:15 PM EDT Office Visit Dermatology at [place] [address] [facility] [place] [address] Marek Bonilla MD [address] [facility] [address] [place] [address] documented as of this encounter Visit Diagnoses Not on filedocumented in this encounter Care Teams Farm Instructor Relationship Specialty Start Date End Date Deborah Quiroga APRN PCP - General Family Medicine 03/24/16 02/04/23 documented as of this encounter
--- OUTSIDE RECORDS SUMMARY | 2024-03-02 14:01 | XMS_ITS | Encounter Summary ---
Author Organization [facility] [place] [address] Care Team Providers Care Textile Machine Mechanic Name Role Phone Deborah Quiroga APRN Primary Care Provider [phone] Encounter Details Date Type Department Care Team (Latest Contact Info) Description 07/10/2016 2:54 PM EST - 07/10/2016 11:59 PM EST Hospital [place] [address] Discharge Disposition: Home Social History Tobacco Use [...] 11:30 AM EST Office [place] [address] Magdalena Peralta MD [facility] [place] [address] 03/01/2025 4:15 PM EDT Office Visit Dermatology at [place] [address] [facility] [address] [place] [address] Marek Bonilla MD [address], [place] [address] documented as of this encounter Procedures Procedure Name Priority Date/Time Associated Diagnosis Comments BONE MARROW FINAL REPORT Routine 07/10/2016 3:43 PM EST documented in this encounter Results * Bone Marrow Final Report (07/10/2016 3:43 PM EST) FINAL DIAGNOSIS (AP) [id number] ?Location: OPW The signing pathologist has (i) examined the relevant preparation(s) for the specimen(s) and (ii) rendered or confirmed the diagnosis(es). . ? Bone Marrow Final DIAGNOSIS BONE MARROW (PERIPHERAL SMEAR, ASPIRATE SMEAR, TOUCH PREP, CLOT SECTION, CORE BIOPSY); [OSR# [id number], COLLECTED 06/23/2016, 19 SLIDES]: ?? 1. 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 Polytypic plasma cell staining, high background Lambda ?Polytypic plasma cell staining, high background Block: ? B2 (Core biopsy 2) Fixative: ?? Formalin ANTIBODY: ?? RESULT/COMMENT CD3 ? Scattered small lymphocytes and lymphoid aggregates highlighted CD20 ?Few scattered small lymphocytes stain ( ?? <CD3 in aggregates) CD138 ? Scattered plasma cells represent 3-4% of the cellularity [place] ? Polytypic plasma cell staining, high background Lambda ?Polytypic plasma cell staining, high background Note: The immunoperoxidase stains reported above were developed and their performance characteristics determined by [facility]. ??They have not been cleared [...] CONSULTATION CASE A - 19 slides labeled [id number], collection date 06/23/2016. [id number] Report to: [facility] Surgical Pathology Department [facility], [address]nd Floor [address] [place] [id number] 07/13/2016 11:38 AM EST [facility] Consult Case 07/10/2016 3:43 PM EST 07/10/2016 3:43 PM EST Nitesh Pina Jr., MD PATHOLOGY/CYTOLOGY O RDERABLES [facility] [place] [id number] documented in this encounter Visit Diagnoses Not on filedocumented in this encounter Care Teams Textile Machine Mechanic Relationship Specialty Start Date End Date Deborah Quiroga APRN PCP - General Family Medicine 03/24/16 02/04/23 documented as of this encounter
--- OUTSIDE RECORDS SUMMARY | 2024-03-02 14:01 | XMS_ITS | Encounter Summary ---
Author Organization [facility] Address [facility] [place] [address] Care Team Providers Care Fixed Income Trading Vice President Name Role Phone Deborah Quiroga ANURAG Primary Care Provider [phone] Reason for Visit * Reason Onset Date Comments Pre Procedure Call 06/18/2016 Encounter Details Date Type Department Care Team (Late st Contact Info) Description 06/18/2016 Telephone Hematology [place] [address] Alexandrea Greenwood RN Pre Procedure [...] 11:30 AM EST Office [place] [address] Magdalena Peralta MD [facility] [place] [address] 03/01/2025 4:15 PM EDT Office Visit Dermatology at [place] [address] [place] [address] Marek Bonilla MD [address], [place] [address] documented as of this encounter Visit Diagnoses Not on filedocumented in this encounter Care Teams Fixed Income Trading Vice President Relationship Specialty Start Date End Date Deborah Quiroga APRN PCP - General Family Medicine 03/24/16 02/04/23 documented as of this encounter
--- OUTSIDE RECORDS SUMMARY | 2024-03-02 14:01 | XMS_ITS | Encounter Summary ---
[place] [address] Care Team Providers Care Report Developer Name Role Phone Deborah Quiroga ANURAG Primary Care Provider [phone] Reason for Visit * Reason Onset Date Comments Medical Care Coordination 07/17/2016 Encounter Details Date Type Department Care Team ([facility] Contact Info) Description 07/17/2016 Telephone Hematology [place] [address] Alexandrea Greenwood RN Medical Care Coordination Social [...] 07/17/2016 12:07 PM EST Message received from office secretary: Injection/Infusion Referral Call placed to [phone]). Spoke w/ Pasquale. Services to be provided for pt are: Labs @ 10am ([facility]) & Neulasta @ 11am on 07/20/16, CBC only on 07/30/16 Pasquale confirmed they would provide services to pt and I left [facility] for pt to call for appt info. Pt demographics, office note, med list and orders faxed to [facility] & [facility] documented in this encounter Plan of Treatment Upcoming Encounters Date Type Department Care Team (Late st Contact Info) Description 06/05/2024 11:30 AM EST Office [place] [address] Magdalena Peralta MD [facility] [place] [address] 03/01/2025 4:15 PM EDT Office Visit Dermatology at [place] [address] [facility] [place] [address] Marek Bonilla MD [address] [facility] [place] [address] documented as of this encounter Visit Diagnoses Not on filedocumented in this encounter Care Teams Report Developer Relationship Specialty Start Date End Date Deborah Quiroga APRN PCP - General Family Medicine 03/24/16 02/04/23 documented as of this encounter
--- OUTSIDE RECORDS SUMMARY | 2024-03-02 14:01 | XMS_ITS | Encounter Summary ---
Author Organization [facility] Address [facility] [place] [address] Care Team Providers Care Trustee Of Estate Name Role Phone Deborah Quiroga APRN Primary Care Provider [phone] Encounter Details Date Type Department Care Team (Late st Contact Info) Description 09/17/2016 External Results Hematology [place] [address] Alexandrea Greenwood RN Neutropenia, unspecified type Social [...] Office Visit [place] [address] Magdalena Peralta MD [facility] [place] [address] 03/01/2025 4:15 PM EDT Office Visit Dermatology at [address] [place] [address] Marek Bonilla MD [address] [facility], [place] [address] documented as of this encounter Procedures Procedure [...] type documented in this encounter Care Teams Trustee Of Estate Relationship Specialty Start Date End Date Deborah Quiroga APRN PCP - General Family Medicine 03/24/16 02/04/23 documented as of this encounter
--- OUTSIDE RECORDS SUMMARY | 2024-03-02 14:01 | XMS_ITS | Encounter Summary ---
Author Organization [facility] Address [facility] [place] [address] Care Team Providers Care Corporate Officer Name Role Phone Deborah Quiroga APRN Primary Care Provider [phone] Encounter Details Date Type Department Care Team (Late st Contact Info) Description 06/16/2016 Orders Only Hematology [place] [address] Nitesh Pina Jr., MD [facility] [place] [address] Cyclical neutropenia Social History Tobacco Use Types [...] 11:30 AM EST Office [place] [address] Magdalena Peralta MD [facility] [place] [address] 03/01/2025 4:15 PM EDT Office Visit Dermatology at [place] [address] [facility] [place] [address] Marek Bonilla MD [address] [place] [address] RD, [address] [address] documented as of this encounter Visit Diagnoses Diagnosis Cyclical neutropenia Cyclic neutropenia documented in this encounter Care Teams Corporate Officer Relationship Specialty Start Date End Date Deborah Quiroga, THIRD SHIFT LIEUTENANT PCP - General Family Medicine 03/24/16 02/04/23 documented as of this encounter
--- OUTSIDE RECORDS SUMMARY | 2024-03-02 14:01 | XMS_ITS | Encounter Summary ---
Author Organization [facility] Address [facility] [place] [address] Care Team Providers Care Forklift Material Handler Name Role Phone Deborah Quiroga APRN Primary Care Provider [phone] Encounter Details Date Type Department Care Team (Late st Contact Info) Description 07/03/2016 External Results Hematology [place] [address] Matthew Cervantes, DO [address] [place] [address] Social History Tobacco Use Types Packs/Day Years [...] 11:30 AM EST Office [place] [address] Magdalena Peralta MD [facility] [place] [address] 03/01/2025 4:15 PM EDT Office Visit Dermatology at [place] [address] [place] [address] Marek Bonilla MD [address] [place] [address] RD, [place] [address] documented as of this encounter Procedures Procedure Name Priority Date/Time Associated Diagnosis Comments BONE MARROW ASPIRATION PERFO RMED WITH BONE MARRROW BIOPSY Routine 06/28/2016 documented in this encounter Results * BONE MARROW ASPIRATION PREFORMED WITH BONE MARRROW BIOPSY (06/28/2016) Matthew Cervnates DO GENERAL SURGI DANIEL ORDERABLES documented in this encounter Visit Diagnoses Not on filedocumented in this encounter Care Teams Forklift Material Handler Relationship Specialty Start Date End Date Deborah Quiroga APRN PCP - General Family Medicine 03/24/16 02/04/23 documented as of this encounter
--- OUTSIDE RECORDS SUMMARY | 2024-03-02 14:01 | XMS_ITS | Encounter Summary ---
[place] [address] Care Team Providers Care Director Of Early Childhood Name Role Phone JunaidDeborah APRN Primary Care Provider [phone] Reason for Visit * Reason Onset Date Comments Labs Only 09/16/2016 Encounter Details Date Type Department Care Team (Late st Contact Info) Description 09/16/2016 Telephone Hematology [place] [address] Alexandrea Greenwood, RN Labs Only Social History [...] 09/16/2016 11:09 AM EST Message received from attendance secretary: Purnima is having her Neulasta done today at [facility]. ??She is wondering if we want to do a CBC prior to the injection? [phone] Borjas: CBC is fine RN spoke with Swapna at [facility] who confirms they can draw CBC on pt today, RN faxed CBC w/diff to [facility] lab at [phone] RN relayed to pt that CBC ordered had been faxed to [facility], pt will have CBC drawn today prior to neulasta injection. documented in this encounter Plan of Treatment Upcoming Encounters Date Type Department Care Team (Late st Contact Info) Description 06/05/2024 11:30 AM EST Office [place] [address] Magdalena Peralta MD [facility] [place] [address] 03/01/2025 4:15 PM EDT Office Visit Dermatology at [place] [address] [place] [address] Marek Bonilla MD [address], [place] [address] documented as of this encounter Results * [...] in this encounter Care Teams Director Of Early Childhood Relationship Specialty Start Date End Date Deborah Quiroga APRN PCP - General Family Medicine 03/24/16 02/04/23 documented as of this encounter
--- OUTSIDE RECORDS SUMMARY | 2024-03-02 14:01 | XMS_ITS | Encounter Summary ---
[place] [address] Care Team Providers Care Bobbin Marker Name Role Phone Deborah Quiroga APRN Primary Care Provider [phone] Reason for Visit * Reason Onset Date Comments Prior Authorization 09/11/2016 Neulasta Encounter Details Date Type Department Care Team (Late st Contact Info) Description 09/11/2016 Telephone Hematology [place] [address] Monica Wick Prior Authorization (Neulasta ) Social [...] EST Prior Auth for Neulasta (Approved) [facility] is a covered facility under the members plan. ID# [id number] Call placed to [phone] Rationale: Can you please start a PA for this pt to receive as outpatient at [facility] on 09/16/16? 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 ??Her last ANC was 0.56 (or 560) on 08/04/16. ??This will need to be approved through her medical as out patient. J code for neulasta. ?? [id number]. Spoke w/ Anna Marie Call Reference [id number] Copay: $ Deductible is not met, patient will have out of pocket costs until deductible is met. documented in this encounter Plan of Treatment Upcoming Encounters Date Type Department Care Team (Late st Contact Info) Description 06/05/2024 11:30 AM EST Office [place] [address] Magdalena Peralta MD [facility] [place] [address] 03/01/2025 4:15 PM EDT Office Visit Dermatology at [place] [address] [facility] [place] [address] Marek Bonilla MD [address] [facility], [place] [address] documented as of this encounter Visit Diagnoses Not on filedocumented in this encounter Care Teams Bobbin Marker Relationship Specialty Start Date End Date Deborah Quiroga APRN PCP - General Family Medicine 03/24/16 02/04/23 documented as of this encounter
--- OUTSIDE RECORDS SUMMARY | 2024-03-02 14:01 | XMS_ITS | Encounter Summary ---
Author Organization [facility] Address [facility] [place] [address] Care Team Providers Care [employer] Name Role Phone Deborah Quiroga APRN Primary Care Provider [phone] Encounter Details Date Type Department Care Team (Late st Contact Info) Description 07/31/2016 External Results [place]ematology [place] [address] Alexandrea Greenwood RN Neutropenia, unspecified type Social [...] 11:30 AM EST Office [place] [address] Magdalena Peralta MD [facility] [place] [address] 03/01/2025 4:15 PM EDT Office Visit Dermatology at [address] [place] [address] Marek Bonilla MD [address] [facility], [place] [address] documented as of this encounter Procedures Procedure [...] type documented in this encounter Care Teams [employer] Relationship Specialty Start Date End Date Deborah Quiroga APRN PCP - General Family Medicine 03/24/16 02/04/23 documented as of this encounter
--- OUTSIDE RECORDS SUMMARY | 2024-03-02 14:01 | XMS_ITS | Encounter Summary ---
Author Organization [facility] Address [facility] [place] [address] Care Team Providers Care Business Education Teacher Name Role Phone Deborah Quiroga APRN Primary Care Provider [phone] Encounter Details Date Type Department Care Team (Late st Contact Info) Description 07/22/2016 External Results [place]emat[place] [address] Alexandrea Greenwood RN Neutropenia, unspecified type Social [...] 11:30 AM EST [place] [address] Magdalena Peralta MD [facility] [place] [address] 03/01/2025 4:15 PM EDT Office Visit Dermatology at [address] [place] [address] Marek Bonilla MD [address] [facility], [place] [address] documented as of this encounter Procedures Procedure Name Priority Date/Time Associated Diagnosis Comments COPPER, SERUM Routine 07/20/2016 10:30 AM EST Neutropenia, unspecified type CMV PCR, QUANTITATIVE Routine 07/20/2016 10:30 AM EST Neutropenia, unspecified type MONONUCLEOSIS SCREEN (APD/JEANNINE/[facility]/[place]) Routine 07/20/2016 10:30 AM EST Neutropenia, unspecified type CBC (WITH DIFF) Routine 07/20/2016 10:30 AM EST Neutropenia, unspecified type documented in this encounter Results * Copper, serum (07/20/2016 10:30 AM EST) Copper 1.09 0.75 - 1.45 EXTERNAL LAB Blood specimen (specimen) 07/20/2016 10:30 AM EST Markel Borjas MD CHEMISTRY ORDERABL ES Performing Organization Address [facility]/ZIP Co de Phone Number EXTERNAL LAB * CMV PCR, Quantitative (07/20/2016 10:30 AM EST) CMV PCR,Quantitati ve undetected EXTERNAL LAB Blood specimen (specimen) 07/20/2016 10:30 AM EST Markel Borjas MD IMMUNOLOGY ORDERAB LES Performing Organization Address [facility]/State/ZIP Co de Phone Number EXTERNAL LAB * Mononucleosis Screen (07/20/2016 10:30 AM EST) [place] Screen neg neg - neg EXTERNAL LAB Blood specimen (specimen) 07/20/2016 10:30 AM EST Markel Borjas MD CHEMISTRY ORDERABL ES Performing Organization Address [facility]/ZIP Co de Phone Number EXTERNAL LAB [...] type documented in this encounter Care Teams Business Education Teacher Relationship Specialty Start Date End Date Deborah Quiroga, UTILITY LOCATOR PCP - General Family Medicine 03/24/16 02/04/23 documented as of this encounter
--- OUTSIDE RECORDS SUMMARY | 2024-03-02 14:01 | XMS_ITS | Encounter Summary ---
[place] [address] Care Team Providers Care Motel Food Service Supervisor Name Role Phone Junaid, Deborah Shields APRN Primary Care Provider [phone] Reason for Visit * Auth/Cert Specialty Diagnoses / Procedures Referred By Crispin t Referred To Contact Diagnoses Aortic stenosis Procedures PRO REPLACE AORT VALV, PROSTH VALV @REPLACE AORTIC VALVE, OPEN, W\CPB, W\PROSTHETIC VALVE (WRVU 41.32) Referral ID Status Reason Start Date Expiration Date Visits Re quested Visits Authorized [id number] 1 1 Encounter Details Date Type Department Care Team (Late st Contact Info) Description 09/21/2016 7:25 AM EST Anesthesia [place] [address] Luis Enrique Quarles MD [facility] [place] [address] Henrik Cooper MD [facility] [place] [address] Anesthesia Record Procedure Summary Procedure Name Responsible [...] 0819 Sternotomy 0844 CV Bypass init 1009 Director Of Anesthesia Services 1014 An Clamp Remove 1031 CP Bypass [...] Tube 09/21/16 (#28 angled chest tube to [place]: left: pericardial); Left; 09/22/16; 1119 09/21/16 0000 by Toshia Alejandre RN 09/22/16 1119 by Vero Bonilla RN Chest Tube 09/21/16 (#28 straig ht chest tube to [place]; right: mediastinal'); Right; mediastinum; 09/22/16; 1118 09/21/16 0000 by Toshia Alejandre RN 09/22/16 1118 by Vero Bonilla RN (RETIRED) Peripheral IV Line - Single Lumen 09/21/16; 0648; metacarpal vein (top of hand), left; [id number] catheter system; 20 gauge; valdo Arteaga; 09/23/16; 1251 09/21/16 0648 by Bhumi Arteaga RN 09/23/16 1251 by Henrik Webb RN (RETIRED) Percutaneous Central Line - Single Lumen 09/21/16; 0730; internal jugular vein, right; Ultrasound Guidance; Yes; 9 Fr; kenneth; YUSRA; CVC Protocol Performed; no longer indicated; 09/22/16; 1205 09/21/16 0730 by Roseline Herrera RN 09/22/16 1205 by Vero Boinlla RN (RETIRED) Pulmonary Artery Catheter - Triple Lumen 09/21/16; 0730; jugular vein, right internal; 8 Fr; 09/21/16; 1820 09/21/16 0730 by Roseline Herrera RN 09/21/16 1820 by Roselien Herrera RN ETT Mask Ventilation: Ea sy [...] Cooper MD - 09/21/2016 6:50 PM EST [facility] Department of Anesthesiology Post-procedure Note Patient: Purnima Thacker Procedure Summary Date Anesthesia Start Anesthesia Stop Room / Location 09/21/16 07 1152 [facility] OR 16 / [facility] MAIN OR Procedure Diagnosis Surgeon Responsible Provider @REPLACE AORTIC VALVE, OPEN, W\CPB, W\PROSTHETIC VALVE (WRVU 41.32) (N/A Chest); @AORTOPLASTY FOR SUPRAVALVULAR STENOSIS (WRVU 29.33) (N/A Chest) () Alirio Francisco MD Clark, Jeffrey A, MD All Anesthesia Providers: Anesthesiologist: Luis Enrique Quarles MD Associate Data Scientist: Henrik Cooper MD Last (1hr) Vitals: BP Temp 36.1 ??C (97 ??F) (09/21/16 1800) Pulse 79 (09/21/16 1800) Resp 11 (09/21/16 1800) SpO2 98 % (09/21/16 1800) Patient Location: [facility] Level of Consciousness: Sedated (Pharmacologic/Intentional) Pain [...] 11:30 AM EST Office [place] [address] Magdalena Peralta MD [facility] [place] [address] 03/01/2025 4:15 PM EDT Office Visit Dermatology at [place] [address] [place] [address] Marek Bonilla MD [address], [place] [address] documented as of this encounter Visit Diagnoses [...] mg documented in this encounter Care Teams Motel Food Service Supervisor Relationship Specialty Start Date End Date Deborah Quiroga, FASHION BUYING INTERNSHIP PCP - General Family Medicine 03/24/16 02/04/23 documented as of this encounter
--- OUTSIDE RECORDS SUMMARY | 2024-03-02 14:01 | XMS_ITS | Encounter Summary ---
Author Organization [facility] Address [facility] [place] [address] Care Team Providers Care Campaign Marketing Specialist Name Role Phone Deborah Quiroga APRN Primary Care Provider [phone] Encounter Details Date Type Department Care Team (Late st Contact Info) Description 06/09/2016 Orders Only Hematology [place] [phone] Nitesh Pina Jr., MD [facility] [address] [place] [address] Cyclical neutropenia Social History Tobacco Use Types [...] Office [place] [address] Magdalena Peralta MD [facility] [place] [address] 03/01/2025 4:15 PM EDT Office Visit Dermatology at [place] [address] [facility] [place] [address] Marek Bonilla MD [address] [place] [address] RD, [place] [address] documented as of this encounter Results * Immunophenotyping Flow Cytometry (06/09/2016 4:53 PM EST) Immunophenotyping Flow See Comment [facility] Comment: When completed by the Pathologist, the Flow Cytometry Report ([id number]) will display under the Pathology Results section within [facility]. Specimen of unknown material (specimen) 06/09/2016 4:53 PM EST 06/09/2016 5:00 PM EST Narrative Resulting Agency Comment Spec In Lab Nitesh Pina Jr., MD HEMATOLOGY ORDERABLE S Performing Organization Address City/State/[facility] Co de Phone Number [facility] [place] [address] documented in this encounter Visit Diagnoses Diagnosis Cyclical neutropenia Cyclic neutropenia documented in this encounter Care Teams Campaign Marketing Specialist Relationship Specialty Start Date End Date Deborah Quiroga APRN PCP - General Family Medicine 03/24/16 02/04/23 documented as of this encounter
--- OUTSIDE RECORDS SUMMARY | 2024-03-02 14:02 | XMS_ITS | Encounter Summary ---
Author Organization [facility] Address [facility] [place] [address] Care Team Providers Care Supervisor [place] Name Role Phone EitanMagnusDanni ANRUAG Primary Care Provider Encounter Details Date Type Department Care Team (Latest Contact Info) Description 01/23/2014 7:45 AM EDT - 01/23/2014 5:50 PM EDT Hospital En[place] [address] Alan Jacobson MD [facility] [place] [address] Cardiomyopathy; SOB (shortness of breath) Discharge Disposition: [...] by your doctor, do not take any xwfw-hvh-rphkptl medicines or herbal preparations without first discussing this with your doctor or pharmacist. There is the possibility of side effect and interactions when these are combined. Follow up Care Who to Call with Questions or Problems If there are any questions or problems that you think might be related to your cardiac cath or angioplasty, contact the cage cashier contract design agent by calling [facility] at . documented in this encounter [...] 11:30 AM EST Office [place] [address] Magdalena Peralta MD [facility] [place] [address] 03/01/2025 4:15 PM EDT Office Visit Dermatology at [place] [address] [facility] [place] [address] Marek Bonilla MD [address], [place] [address] documented as of this encounter Procedures Procedure [...] ANDREW ONESIMO M ?(Age): 1955(58) Med Rec#: ?[id number] ? Sex: ?F ? Site Loc: ?[facility] ? Ht / Wt: ??158(cm)/93(kg) Pt. Loc: ? Adult Floor ?BSA: ?2.02 Study Date: ?01/23/2014 ? Pt. Type: Inpatient Tape: ? Referring: Lee Kincaid ([id number]) Referring: ANNALISA Icer Machine Operator: Miguel Beverly Diagnosis:CPT Code(s): ??Echo Full (95937), ??Spectral Doppler (51978), Color Doppler (96440), Indication(s): ??Aortic stenosis Rhythm: Sinus HR ?BP [...] ? Mid-Inferior ?Hypokinetic ? Mid-Inferoseptal ?Hypokinetic ? [place]-Septal ? Hypokinetic ? [place]-Anterior ? Hypokinetic ? [place]-Lateral ?Hypokinetic ? [place]-Inferior ? Hypokinetic ? [place]-Tip ?Hypokinetic ? Chambers ?Value ?Units (Range) ? [...] 01/23/2014 16:34:37 Images reviewed and interpretation verified [facility] Cardiac Ultrasound Laboratory Procedure Note Lee Kincaid MD - 01/23/2014 Procedure: Transthoracic Echocardiogram Patient: ANDREW Mejias DOB(Age): 1955(58) Med Rec#: [id number] Sex: F Site Loc: [facility] Ht / Wt: 158(cm)/93(kg) Pt. Loc: Adult Floor BSA: 2.02 Study Date: 01/23/2014 Pt. Type: Inpatient Tape: Referring: Lee Kincaid ([id number]) Referring: AUSTINELIZABETHGerman Icer Machine Operator: Miguel Beverly Diagnosis:CPT Code(s): Echo Full (17782), Spectral Doppler (58182), Color Doppler (38691), Indication(s): Aortic stenosis Rhythm: Sinus HR BP [...] Hypokinetic Mid-Posterolateral Hypokinetic Mid-Inferior Hypokinetic Mid-Inferoseptal Hypokinetic [place]-Septal Hypokinetic [place]-Anterior Hypokinetic [place]-Lateral Hypokinetic [place]-Inferior Hypokinetic [place]-Tip Hypokinetic Chambers Value Units (Range) IVSd 2D [...] 01/23/2014 16:34:37 Images reviewed and interpretation verified [facility] Cardiac Ultrasound Laboratory Lee Kincaid MD [...] RN) documented in this encounter Care Teams Supervisor [place] Relationship Specialty Start Date End Date Danni Laird APRN [address] [place] [address] PCP - General 01/23/14 11/11/14 documented as of this encounter
--- OUTSIDE RECORDS SUMMARY | 2024-03-02 14:02 | XMS_ITS | Encounter Summary ---
Author Organization [facility] Address [facility] [place] [address] Care Team Providers Care Research Support Specialist Name Role Phone Ashley Quirogan Sylvia ANURAG Primary Care Provider [phone] Reason for Visit * Consultation (Urgent) - Closed Specialty Diagnoses / Procedures Referred By Crispin t Referred To Contact Cardiac Surgery Diagnoses aortic stenosis, consideration for valve replacement Antelmo Burrell MD [address] [place] [address] Alirio Esparza MD [facility] DR CARDIOTHORACIC [place] [address] Referral ID Status Reason Start Date Expiration Date V isits Requested Visits Authorized [id number] Closed Connection Center 03/04/2016 03/04/2017 1 1 Encounter Details Date Type Department Care Team (Late st Contact Info) Description 03/24/2016 10:40 AM EDT Office [place] [address] Alirio Esparza MD [facility] DR CARDIOTHORACIC [place] [address] Aortic valve stenosis, unspecified etiology Social History [...] This is a patient of Antelmo Burrell [facility] Cardiology. Mrs. Thacker is being sent [...] 30 minute visit, 20 minutes were spent pnma-[id number]-[id number] with the patient discussing aortic stenosis and valve replacement. documented in this encounter Plan of Treatment Upcoming Encounters Date Type Department Care Team (iM st Contact Info) Description 06/05/2024 11:30 AM EST Office [place] [address] Magdalena Peralta MD [facility] DR [place] [address] 03/01/2025 4:15 PM EDT Office Visit Dermatology at [place] [address] [facility] [place] [address] Marek Bonilla MD [address] [facility] [address] [address], [address] [place] [address] documented as of this encounter Visit Diagnoses Diagnosis Aortic valve stenosis, unspecified etiology documented in this encounter Care Teams Research Support Specialist Relationship Specialty Start Date End Date Deborah Quiroga APRN PCP - General Family Medicine 03/24/16 02/04/23 documented as of this encounter
--- OUTSIDE RECORDS SUMMARY | 2024-03-02 14:02 | XMS_ITS | Encounter Summary ---
Author Organization [facility] Address [facility] [place] [address] Care Team Providers Care Indigo Mixer Name Role Phone Ashley Quirogazac Shields APRN Primary Care Provider [phone] Encounter Details Date Type Department Care Team (Late st Contact Info) Description 05/19/2016 10:00 AM EDT Office [place] [address] Alirio Esparza MD [facility] [place] [address] Nonrheumatic aortic valve stenosis Social History Tobacco [...] 11:30 AM EST [place] [address] Magdalena Peralta MD [facility] [place] [address] 03/01/2025 4:15 PM EDT Office Visit Dermatology at [address] [place] [address] Marek Bonilla MD [address], [place] [address] documented as of this encounter Results * [...] (Bezet) 448 ms MUSE SYSTEM Calculated P [place] 37 degrees MUSE SYSTEM Calculated R [place] 31 degrees MUSE SYSTEM Calculated T [place] 25 degrees MUSE SYSTEM INTERPRETATION Normal sinus rhythm Normal ECG No previous ECGs available Confirmed by MD Becca, Deangelo ([id number]) on 05/19/2016 5:23:33 PM MUSE SYSTEM 05/19/2016 11:4 3 AM EDT 05/19/2016 5:23 PM EDT Alirio Esparza MD ECG ORDERABLES MUSE SYSTEM * Basic Metabolic Panel (non-fasting) (05/19/2016 11:32 AM EDT) Glucose Lvl 86 65 - 199 mg/dL [facility] Comment:Diabetes: >=200 mg/d L plus symptoms BUN 13 8 - 18 mg/dL [facility] Creatinine 0.95 0.70 - 1.20 mg/dL [facility] Comment: Please note that the pediatric reference intervals supplied above were not validated at [facility]. Results from pediatric patients should be interpreted in conjunction to the patient's age, height and muscle mass. Sodium 140 135 - 145 mmol/L [facility] Potassium 4.3 3.5 - 5.0 mmol/L [facility] Comment: Please note: ??Patients with WBC >100,000 may have falsely elevated Potassium levels. ??For accurate Potassium quantification in these patients send serum separator tube (gold top) for subsequent determinations. ??Contact the Clinical Chemistry Laboratory if there are any questions. Chloride 101 98 - 107 mmol/L [facility] CO2 27 22 - 31 mmol/L [facility] Anion Gap 12 5 - 15 mmol/L [facility] Calcium 10.1 8.5 - 10.5 mg/dL [facility] Estimated GFR 60 >=60 PROCTOR [...] the following links into your internet browser. [email or web address] Blood specimen (specimen) 05/19/2016 11:32 AM EDT 05/19/2016 11:41 AM EDT Narrative Resulting Agency Comment Spec In Lab Alirio Esparza MD CHEMISTRY ORDERABLE S [facility] [place] [address] documented in this encounter Visit Diagnoses Diagnosis Nonrheumatic aortic valve stenosis Aortic valve disorders Nonrheumatic aortic valve stenosis Aortic valve disorders documented in this encounter Care Teams Indigo Mixer Relationship Specialty Start Date End Date Deborah Quiroga APRN PCP - General Family Medicine 03/24/16 02/04/23 documented as of this encounter
--- OUTSIDE RECORDS SUMMARY | 2024-03-02 14:02 | XMS_ITS | Encounter Summary ---
[place] [address] Care Team Providers Care Tree Pruner Name Role Phone Jerel Sofia Garcia APRN Primary Care Provider [phone] Encounter Details Date Type Department Care Team (Late st Contact Info) Description 11/12/2014 8:10 AM EDT - 11/12/2014 11:59 PM EDT Hospital [place] [phone] CLINIC, DR ABE Burrell, Antelmo Porter MD [address] [place] [address] Discharge Disposition: Home Social History Tobacco Use [...] 11:30 AM EST Office [place] [address] Magdalena Peralta MD [facility] [place] [address] 03/01/2025 4:15 PM EDT Office Visit Dermatology at [place] [address] [place] [address] Marek Bonilla MD [address], [place] [address] documented as of this encounter Procedures Procedure [...] mLs documented in this encounter Care Teams Tree Pruner Relationship Specialty Start Date End Date Sofia Beltrán APRN [address] [place] [address] PCP - General 11/12/14 03/23/16 documented as of this encounter
--- OUTSIDE RECORDS SUMMARY | 2024-03-02 14:02 | XMS_ITS | Encounter Summary ---
[place] [address] Care Team Providers Care Gas Singer Name Role Phone Ashley Quirogan Cornelius ANURAG Primary Care Provider [phone] Encounter Details Date Type Department Care Team (Late st Contact Info) Description 03/24/2016 Notes [place] [phone] Alfa Lua Social History Tobacco Use Types [...] assessments completed: Wadsworth Score: 6/6 IADL: 7/7 Loin Puller Strength Trials: 18.4, 15.0, 16.8 (right hand dominant) 5 meter walk test in seconds x3: 4.98, 4.88, 4.45 KCCQol: 98% Alfa Lua documented in this encounter Plan of Treatment Upcoming Encounters Date Type Department Care Team (Late st Contact Info) Description 06/05/2024 11:30 AM EST Office [place] [address] Magdalena Peralta MD [facility] [place] [address] 03/01/2025 4:15 PM EDT Office Visit Dermatology at [place] [address] [facility] [address] Marek Bonilla MD [address], [address] [address] documented as of this encounter Visit Diagnoses Not on filedocumented in this encounter Care Teams Gas Singer Relationship Specialty Start Date End Date Deborah Quiroga APRN PCP - General Family Medicine 03/24/16 02/04/23 documented as of this encounter
--- OUTSIDE RECORDS SUMMARY | 2024-03-02 14:02 | XMS_ITS | Encounter Summary ---
Author Organization [facility] [place] [address] Care Team Providers Care Senior Marketing Data Analyst Name Role Phone Eitan Danni ANURAG Primary Care Provider [phone] Encounter Details Date Type Department Care Team (Late st Contact Info) Description 01/23/2014 9:25 AM EDT - 01/23/2014 10:25 AM EDT Surgery Certified [place] [address] Alan Jacobson MD [facility] [place] [address] CARDIAC CATHETERIZATION Social History Tobacco Use Types [...] by your doctor, do not take any iidi-hyl-fixpmlc medicines or herbal preparations without first discussing this with your doctor or pharmacist. There is the possibility of side effect and interactions when these are combined. Follow up Care Who to Call with Questions or Problems If there are any questions or problems that you think might be related to your cardiac cath or angioplasty, contact the meeting manager telephone sex worker by calling [facility] at . documented in [...] 11:30 AM EST Office Visit Rheumatology at [facility] [place] [address] Magdalena Peralta MD [facility] DR RHEUMATOLOGY [place] [address] 03/01/2025 4:15 PM EDT Office Visit Dermatology at [place] [address] [place] [address] Marek Bonilla MD [address], [place] [address] documented as of this encounter Procedures Procedure Name Priority Date/Time Associated Diagnosis Comments ECHOCARDIOGRAM TRANSTHORACIC Routine 01/23/2014 3:17 PM EDT SOB (shortness of breath) documented in this encounter Results * Echocardiogram Transthoracic(Leb) (01/23/2014 3:17 PM EDT) Pathologist Speak With Me EF 50 HEARTLAB SYSTEM Anatomical Region Laterality Modality Other 01/23/2014 Narrative 01/23/2014 4:35 PM EDT Procedure: ? Transthoracic Echocardiogram Patient: ? ANDREW ECHOLS M ?(Age): 1955(58) Med Rec#: ?[id number] ? Sex: ?F ? [place] ? Ht / Wt: ??158(cm)/93(kg) Pt. Loc: ? Adult Floor ?BSA: ?2.02 Study Date: ?01/23/2014 ? Pt. Type: Inpatient Tape: ? Referring: Lee Kincaid ([id number]) Referring: ANNALISA Radio Interference Investigator: Miguel Beverly Diagnosis:CPT Code(s): ??Echo Full (94093), ??Spectral Doppler (58973), Color Doppler (87687), Indication(s): ??Aortic stenosis Rhythm: Sinus HR ?BP [...] ? Mid-Inferior ?Hypokinetic ? Mid-Inferoseptal ?Hypokinetic ? [place]-Septal ? Hypokinetic ? [place]-Anterior ? Hypokinetic ? [place]-Lateral ?Hypokinetic ? [place]-Inferior ? Hypokinetic ? [place]-Tip ?Hypokinetic ? Chambers ?Value ?Units (Range) ? [...] 01/23/2014 16:34:37 Images reviewed and interpretation verified [facility] Cardiac Ultrasound Laboratory Procedure Note Lee Kincaid MD - 01/23/2014 Procedure: Transthoracic Echocardiogram Patient: ANDREW Mejias (Age): 1955(58) Med Rec#: [id number] Sex: F [place]: [facility] Ht / Wt: 158(cm)/93(kg) Pt. Loc: Adult Floor BSA: 2.02 Study Date: 01/23/2014 Pt. Type: Inpatient Tape: Referring: Lee Kincaid ([id number]) Referring: ANNALISA Radio Interference Investigator: Miguel Beverly Diagnosis:CPT Code(s): Echo Full (89725), Spectral Doppler (25381), Color Doppler (16883), Indication(s): Aortic stenosis Rhythm: Sinus HR BP [...] Hypokinetic Mid-Posterolateral Hypokinetic Mid-Inferior Hypokinetic Mid-Inferoseptal Hypokinetic [place]-Septal Hypokinetic [place]-Anterior Hypokinetic [place]-Lateral Hypokinetic [place]-Inferior Hypokinetic [place]-Tip Hypokinetic Chambers Value Units (Range) IVSd 2D [...] 01/23/2014 16:34:37 Images reviewed and interpretation verified [facility] Cardiac Ultrasound Laboratory Lee [...] RN) documented in this encounter Care Teams Senior Marketing Data Analyst Relationship Specialty Start Date End Date Danni Laird APRN [address] [place] [address] PCP - General 01/23/14 11/11/14 documented as of this encounter
--- OUTSIDE RECORDS SUMMARY | 2024-03-02 14:02 | XMS_ITS | Encounter Summary ---
Author Organization [facility] Address [facility] [place] [address] Care Team Providers Care Ticket Dispatcher Name Role Phone Deborah Quiroga APRN Primary Care Provider [phone] Encounter Details Date Type Department Care Team (Latest Contact Info) Description 05/19/2016 11:52 AM EDT - 05/19/2016 11:59 PM EDT Hospital Encounter XRay at [address] [place] [address] [facility] [place] [address] Nonrheumatic aortic valve stenosis Discharge Disposition: Home [...] 11:30 AM EST Office [place] [address] [facility] [place] [address] 03/01/2025 4:15 PM EDT Office Visit Dermatology at [place] [address] [facility] [place] [address] Marek Bonilla MD [address] [facility], [place] [address] documented as of this encounter Procedures Procedure [...] disorders documented in this encounter Care Teams Ticket Dispatcher Relationship Specialty Start Date End Date Deborah Quiroga APRN PCP - General Family Medicine 03/24/16 02/04/23 documented as of this encounter
--- OUTSIDE RECORDS SUMMARY | 2024-03-02 14:02 | XMS_ITS | Encounter Summary ---
Author Organization [facility] [place] [address] Care Team Providers Care Java Integration Developer Name Role Phone EitanDanni ANURAG Primary Care Provider [phone] Encounter Details Date Type Department Care Team (Late st Contact Info) Description 01/22/2014 Telephone Cardiology at [address] [phone] Cynthia Arrington LPN Social History Tobacco Use [...] LPN - 01/23/2014 2:39 PM EDT This newswriter did not receive a call back from [...] 11:30 AM EST Office [place] [address] Magdalena Peralta MD [facility] [place] [address] 03/01/2025 4:15 PM EDT Office Visit Dermatology at [place] [address] [facility] [place] [address] Marek Bonilla MD [address], [place] [address] documented as of this encounter Visit Diagnoses Not on filedocumented in this encounter Care Teams Java Integration Developer Relationship Specialty Start Date End Date Danni Laird APRN [address] [place] [address] PCP - General 01/23/14 11/11/14 documented as of this encounter
--- OUTSIDE RECORDS SUMMARY | 2024-03-02 14:02 | XMS_ITS | Encounter Summary ---
Author Organization [facility] Address [facility] [place] [address] Care Team Providers Care Room Cleaner Name Role Phone Ashley Quirogan Cornelius ANURAG Primary Care Provider [phone] Encounter Details Date Type Department Care Team (Latest Contact Info) Description 05/19/2016 11:20 AM EDT Laboratory [place] [phone] Nonrheumatic aortic valve stenosis Social History Tobacco [...] 11:30 AM EST Office [place] [phone] Magdalena Peralta MD [facility] RHEUMATOLOGY [place] [address] 03/01/2025 4:15 PM EDT Office Visit Dermatology at [place] [address] [facility] [place] [phone] Marek Bonilla MD [address] [facility] [place] [address] documented as of this encounter Procedures Procedure Name Priority Date/Time Associated Diagnosis Comments SCAN, PERIPHERAL BLOOD Routine 05/19/2016 11:32 AM EDT HEMOGRAM Routine 05/19/2016 11:32 AM EDT Nonrheumatic aortic valve stenosis DIFFERENTIAL, AUTOMATED Routine 05/19/2016 11:32 AM EDT Nonrheumatic aortic valve stenosis TYPE AND SCREEN, SDP (FUTURE SURGERY, [facility] [place]GRAM ONLY) Routine 05/19/2016 11:32 [...] (05/19/2016 11:32 AM EDT) Plat Estimate Normal [facility] RBC Morphology Normal [facility] Blood specimen (specimen) 05/19/2016 11:32 AM EDT 05/19/2016 11:41 AM EDT Narrative Resulting Agency Comment Spec In Lab Alirio Esparza MD HEMATOLOGY ORDERABL ES [facility] [place] [address] * (ABNORMAL) Differential, Automated (05/19/2016 11:32 AM EDT) Neutrophils % 25.9 % [facility] Neutr Abs (ANC) 0.42(Crit ical) 1.70 - 6.10 x10(3)/mc L [facility] Comment: This result has been called to DR ALIRIO ESPARZA by Alivia Ibarra on 05 19 2016 at 1228, and has been read back. Lymphocytes % 59.9 % [facility] Lymphocytes Abs 1.0 0.9 - 3.2 x10(3)/[facility] Monocytes % 13.0 % [facility] Monocyte Abs 0.2(L) 0.3 - 0.9 x10(3)/[facility]OR[facility] Eosinophils % 0.6 % [facility] Eosinophils Abs 0.0 0.0 - 0.4 x10(3)/[facility]OR[facility] Basophils % 0.6 % [facility] Basophils Abs 0.0 0.0 - 0.1 x10(3)/[facility]OR[facility] Immature Gran % 0.00 % [facility] Comment: Immature granulocytes(IG's)percentage and absolute count will include metamyelocytes, myelocytes, and promyelocytes. Blood smears from CBCs yielding IG's will be scanned manually for concordance. If this scan disagrees with the automated IG or if promyelocytes are noted, a manual differential will be performed. Amanda Gran Abs 0.00 0.00 - 0.04 x10(3)/[facility] Blood specimen (specimen) 05/19/2016 11:32 AM EDT 05/19/2016 11:41 AM EDT Narrative Resulting Agency Comment Spec In Lab Alirio Esparza MD HEMATOLOGY ORDERABL ES [facility] [place] [address] * (ABNORMAL) Hemogram (05/19/2016 11:32 AM EDT) WBC 1.6(Critic al) 4.0 - 9.5 x10(3)/[facility] Comment: This result has been called to DR ALIRIO ESPARZA by Alivia Ibarra on 05 19 2016 at 1228, and has been read back. RBC 3.96(L) 4.00 - 5.21 x10(6)/mc L [facility] Hemoglobin 12.5 11.7 - 15.5 gm/dL [facility] Hematocrit 37.9 35.7 - 45.8 % [facility] MCV 95.7(H) 82.6 - 94.[address] [facility] MCH 31.6 27.1 - 32.[address] [facility] MCHC 33.0 31.7 - 35.0 gm/dL [facility] Platelets 227 145 - 357 x10(3)/mc L [facility] RDWSD 40.5 37.0 - 46.0 [facility] RDWCV 11.5 11.5 - 14.1 % [facility] MPV 8.4 7.6 - 12.9 [facility] nRBC % Auto 0.0 % [facility] nRBC Abs Auto 0.000 0.000 - 0.000 x10(3)/mc L [facility] Blood specimen (specimen) 05/19/2016 11:32 AM EDT 05/19/2016 11:41 AM EDT Narrative Resulting Agency Comment Spec In Lab Alirio Esparza MD HEMATOLOGY ORDERABL ES [facility] [place] [address] * Antibody screen (05/19/2016 11:32 AM EDT) Ab Screen Interp Negative [facility] Expires at [id number] on: 07/03/2016 [facility] Comment: Corrected from 06/11/16 12:00 [Unknown] on 06/09/16 05:51 by Bethanie Tomlinson I.. Corrected from 07/03/16 12:00 [Unknown] on 05/21/16 06:00 by Shelia Barrera Blood specimen (specimen) 05/19/2016 11:32 AM EDT 05/19/2016 11:35 AM EDT Narrative Resulting Agency Comment Spec In Lab Alirio Esparza MD BLOOD BANK LAB [place] Performing Organization Address City/[facility]/ZIP Co de Phone Number [facility] [place] [address] * ABO/Rh Typing (05/19/2016 11:32 AM EDT) ABORH Type B Pos [facility] Blood specimen (specimen) 05/19/2016 11:32 AM EDT 05/19/2016 11:35 AM EDT Narrative Resulting Agency Comment Spec In Lab Alirio Esparza MD BLOOD BANK LAB [place] Performing Organization Address [facility] Co de Phone Number [facility] [place] [address] * Basic Metabolic Panel (non-fasting) (05/19/2016 11:32 AM EDT) Pathologist [facility] Glucose Lvl 86 65 - 199 mg/dL [facility] Comment:Diabetes: >=200 mg/d L plus symptoms BUN 13 8 - 18 mg/dL [facility] Creatinine 0.95 0.70 - 1.20 mg/dL [facility] Comment: Please note that the pediatric reference intervals supplied above were not validated at [facility]. Results from pediatric patients should be interpreted in conjunction to the patient's age, height and muscle mass. Sodium 140 135 - 145 mmol/L [facility] Potassium 4.3 3.5 - 5.0 mmol/L [facility] Comment: Please note: ??Patients with WBC >100,000 may have falsely elevated Potassium levels. ??For accurate Potassium quantification in these patients send serum separator tube (gold top) for subsequent determinations. ??Contact the Clinical Chemistry Laboratory if there are any questions. Chloride 101 98 - 107 mmol/L [facility] CO2 27 22 - 31 mmol/L [facility] Anion Gap 12 5 - 15 mmol/L [facility] Calcium 10.1 8.5 - 10.5 mg/dL [facility] Estimated GFR 60 >=60 [facility] Comment: This [...] the following links into your internet browser. [email or web address] Blood specimen (specimen) 05/19/2016 11:32 AM EDT 05/19/2016 11:41 AM EDT Narrative Resulting Agency Comment Spec In Lab Alirio Esparza MD CHEMISTRY ORDERABLE S Performing Organization Address City/State/[facility] Co de Phone Number [facility] [place] [phone] documented in this encounter Visit Diagnoses Diagnosis Nonrheumatic aortic valve stenosis Aortic valve disorders documented in this encounter Care Teams Room Cleaner Relationship Specialty Start Date End Date Deborah Quiroga APRN PCP - General Family Medicine 03/24/16 02/04/23 documented as of this encounter
--- OUTSIDE RECORDS SUMMARY | 2024-03-02 14:02 | XMS_ITS | Encounter Summary ---
Author Organization [facility] Address [facility] [place] [address] Care Team Providers Care Computer Service Technician Name Role Phone Junaid Deborah Shields APRN Primary Care Provider [phone] Encounter Details Date Type Department Care Team (Latest Contact Info) Description 05/19/2016 11:00 AM EDT Clinical [place] [phone] Nonrheumatic aortic valve stenosis Social History Tobacco [...] 11:30 AM EST Office [place] [address] Magdalena Peralta MD [facility] [place] [address] 03/01/2025 4:15 PM EDT Office Visit Dermatology at [place] [address] [place] [address] Marek Bonilla MD [address] [facility] [address] [address], [place] [address] documented as of this encounter Procedures Procedure [...] (Bezet) 448 ms MUSE SYSTEM Calculated P [place] 37 degrees MUSE SYSTEM Calculated R [place] 31 degrees MUSE SYSTEM Calculated T [place] 25 degrees MUSE SYSTEM INTERPRETATION Normal sinus rhythm Normal ECG No previous ECGs available Confirmed by MD Becca, Deangelo ([id number]) on 05/19/2016 5:23:33 PM MUSE SYSTEM 05/19/2016 11:4 3 AM EDT 05/19/2016 5:23 PM EDT Alirio Esparza MD ECG ORDERABLES MUSE SYSTEM documented in this encounter Visit Diagnoses Diagnosis Nonrheumatic aortic valve stenosis Aortic valve disorders documented in this encounter Care Teams Computer Service Technician Relationship Specialty Start Date End Date Deborah Quiroga APRN PCP - General Family Medicine 03/24/16 02/04/23 documented as of this encounter
--- OUTSIDE RECORDS SUMMARY | 2024-03-02 14:02 | XMS_ITS | Encounter Summary ---
Author Organization [facility] Address [facility] [place] [address] Care Team Providers Care Child Care Supervisor Name Role Phone JunaidAshley hargrovezac Shields APRN Primary Care Provider [phone] Reason for Visit * Auth/Cert Specialty Diagnoses / Procedures Referred By Crispin t Referred To Contact Diagnoses AVS Procedures CARDIAC CATHETERIZATION Referral ID Status Reason Start Date Expiration Date Visits Re quested Visits Authorized [id number] 1 1 Encounter Details Date Type Department Care Team (Late st Contact Info) Description 06/03/2016 6:32 AM EDT - 06/03/2016 1:10 PM EDT Hospital Encounter [place] [phone] Anjum Oliveros II, MD [facility] [place] [address] Mario Alberto Escobedo MD [facility] [place] [address] Aortic valve stenosis, unspecified etiology; Nonrheumatic aortic [...] by your doctor, do not take any [id number] medicinesor herbal preparations without first discussing this with your doctor or pharmacist. There is the possibility of side effects and interactions when these are combined. Follow Up Care Who to call with questions or problems If there are any questions or problems that you think might be related to your cardiac cath or angioplasty, contact the stump shooter pumping station supervisor by calling [facility] at . * Patient Instructions* Felicia Corrigan - 06/03/2016 9:33 AM EDT Cardiology Instructions Call your doctor if: Chest pain, dyspnea, pain or swelling in legs occurs. If you have non-emergent questions between now and the time of your follow up appointments: -During 8am-5pm Wednesday through Wednesday call [phone] to speak with a nurse in the cardiology clinic -All other times call [phone] and ask to speak to the hand collator pumping station supervisor. MEDICATIONS - restart your spironolactone, discontinue prior [...] Appointments: Primary care provider: Cardiology: Deborah Hahn, CROP PULLER [phone] Follow up as planned or as needed. Dr. Esparza [phone] Other follow-up appointment: Hematology - Dr. Mario [...] 11:30 AM EST Office [place] [address] Magdalena Peralta MD [facility] [place] [address] 03/01/2025 4:15 PM EDT Office Visit Dermatology at [place] [address] [facility] [place] [phone] Marek Bonilla MD [address] [facility], [place] [address] documented as of this encounter Procedures Procedure [...] AM EDT) Green Hold Sample in lab. [facility] Blood specimen (specimen) Venous Draw / Unknown 06/03/2016 11:45 AM EDT 06/03/2016 12:12 PM EDT Mario Alberto Escobedo MD CHEMISTRY ORDERABLES Performing Organization Address City/State/[facility] Co de Phone Number [facility] [place] [address] * Methylmalonic acid, serum (06/03/2016 11:45 AM EDT) Methylmalonic Acid 0.21 <=0.40 nmol/mL [facility] Comment: Test Performed by: [facility] - [address] [address] Top Taper Machine: Raymond Chaudhry II, M.D., Ph.D. Blood specimen (specimen) 06/03/2016 11:45 AM EDT 06/03/2016 1:57 PM EDT Narrative Resulting Agency Comment Spec In Lab Mario Alberto Escobedo MD CHEMISTRY ORDERABLES Performing Organization Address City/State/[facility] Co de Phone Number [facility] [address] * Granulocyte Antibody (06/03/2016 11:45 AM EDT) [facility] Granulocyte Ab Negative Not Applicable [facility] Comment: ADDITIONAL INFORMATION Method: Immunofluorescent Assay Performing Laboratory CLIA# [id number] This test was developed and its performance characteristics determined by [facility] in a manner consistent with CLIA requirements. This test has not been cleared or approved by the U.S. Food and Drug Administration. Test Performed by: [address] [address] Top Taper Machine: Raymond Chaudhry II, M.D., Ph.D. Blood specimen (specimen) 06/03/2016 11:45 AM EDT 06/03/2016 1:57 PM EDT Narrative Resulting Agency Comment Spec In Lab Mario Alberto Escobedo MD IMMUNOLOGY ORDERABLE S Performing Organization Address [facility] Co de Phone Number [facility] [place] [address] * TSH (06/03/2016 11:45 AM EDT) [facility] TSH 2.18 0.27 - 4.20 mcIU/mL [facility] Blood specimen (specimen) 06/03/2016 11:45 AM EDT 06/03/2016 12:11 PM EDT Narrative Resulting Agency Comment Spec In Lab Mario Alberto Escobedo MD CHEMISTRY ORDERABLES Performing Organization Address [facility] Co de Phone Number [facility] [address] * Homocysteine Total, Plasma (06/03/2016 11:45 AM EDT) [facility] Homocyst Tot 9 <=15 mcmol/L [facility] Blood specimen (specimen) 06/03/2016 11:45 AM EDT 06/03/2016 12:11 PM EDT Narrative Resulting Agency Comment Spec In Lab Mario Alberto Escobedo MD CHEMISTRY ORDERABLES Performing Organization Address City/[facility]/ZIP Co de Phone Number [facility] [place] [address] * Folate, serum (06/03/2016 11:45 AM EDT) Folate Lvl >20.0 4.8 - 24.2 ng/mL [facility] Blood specimen (specimen) 06/03/2016 11:45 AM EDT 06/03/2016 12:04 PM EDT Narrative Resulting Agency Comment Spec In Lab Mario Alberto Escobedo MD CHEMISTRY ORDERABLES Performing Organization Address [facility] Co de Phone Number [facility] [address] * (ABNORMAL) Sedimentation rate (06/03/2016 11:45 AM EDT) Sed Rate 41(H) 0 - 20 mm/hr [facility] Blood specimen (specimen) 06/03/2016 11:45 AM EDT 06/03/2016 12:04 PM EDT Narrative Resulting Agency Comment Spec In Lab Mario Alberto Escobedo MD HEMATOLOGY ORDERABLE S Performing Organization Address City/[facility]/ZIP Co de Phone Number [facility] [place] [address] * Lactate Dehydrogenase (06/03/2016 11:45 AM EDT) LDH 164 110 - 220 unit/L [facility] Blood specimen (specimen) 06/03/2016 11:45 AM EDT 06/03/2016 12:11 PM EDT Narrative Resulting Agency Comment Spec In Lab Mario Alberto Escobedo MD CHEMISTRY ORDERABLES [facility] [place] [address] * Comprehensive metabolic panel (non-fasting) (06/03/2016 11:45 AM EDT) Glucose Lvl 90 65 - 199 mg/dL [facility] Comment:Diabetes: >=200 mg/d L plus symptoms BUN 11 8 - 18 mg/dL [facility] Creatinine 0.83 0.70 - 1.20 mg/dL [facility] Comment: Please note that the pediatric reference intervals supplied above were not validated at [facility]. Results from pediatric patients should be interpreted in conjunction to the patient's age, height and muscle mass. Sodium 143 135 - 145 mmol/L [facility] Potassium 4.0 3.5 - 5.0 mmol/L [facility] Comment: Please note: ??Patients with WBC >100,000 may have falsely elevated Potassium levels. ??For accurate Potassium quantification in these patients send serum separator tube (gold top) for subsequent determinations. ??Contact the Clinical Chemistry Laboratory if there are any questions. Chloride 104 98 - 107 mmol/L [facility] CO2 25 22 - 31 mmol/L [facility] Anion Gap 14 5 - 15 mmol/L [facility] Calcium 9.2 8.5 - 10.5 mg/dL [facility] Total Protein 7.0 6.1 - 8.0 gm/dL [facility] Albumin 4.0 3.2 - 5.2 gm/dL [facility] AST 17 0 - 30 unit/L [facility] ALT 9 0 - 30 unit/L [facility] Alk Phos 81 40 - 104 unit/L [facility] Total Bilirubin 0.4 0.2 - 1.3 mg/dL [facility] Bili, Direct 0.1 0.0 - 0.3 mg/dL [facility] Estimated GFR >60 >=60 [facility] [...] the following links into your internet browser. [email or web address] Blood specimen (specimen) 06/03/2016 11:45 AM EDT 06/03/2016 12:11 PM EDT Narrative Resulting Agency Comment Spec In Lab Mario Alberto Escobedo MD CHEMISTRY ORDERABLES [facility] [place] [address] documented in this encounter Visit Diagnoses Diagnosis [...] Hernandez) documented in this encounter Care Teams Child Care Supervisor Relationship Specialty Start Date End Date Deborah Quiroga, ANURAG PCP - General Family Medicine 03/24/16 02/04/23 documented as of this encounter
--- OUTSIDE RECORDS SUMMARY | 2024-03-02 14:02 | XMS_ITS | Encounter Summary ---
[place] [address] Care Team Providers Care Meringuer Name Role Phone Mitchell Wilkes MD Primary Care Provider [phone] Reason for Visit * Reason Onset Date Comments Other 01/18/2014 Encounter Details Date Type Department Care Team (Late st Contact Info) Description 01/18/2014 Telephone Cardiology at [address] [address] Jesusita Garces Other Social History [...] 11:30 AM EST Office [place] [address] Magdalena Peralta MD [facility] [place] [address] 03/01/2025 4:15 PM EDT Office Visit Dermatology at [place] [address] [facility] [place] [address] Marek Bonilla MD [address] [facility], [address] Katherine [place] [address] documented as of this encounter Visit Diagnoses Not on filedocumented in this encounter Care Teams Meringuer Relationship Specialty Start Date End Date Mitchell Wilkes MD [facility] PCP - General 06/24/10 01/19/14 documented as of this encounter
--- OUTSIDE RECORDS SUMMARY | 2024-03-02 14:02 | XMS_ITS | Encounter Summary ---
Author Organization [facility] Address [facility] [place] [address] Care Team Providers Care Raw Finish Mill Operator Name Role Phone Danni Laird APRN Primary Care Provider [phone] Encounter Details Date Type Department Care Team (Late st Contact Info) Description 01/23/2014 Orders Only Cardiology at [address] [phone] Lee Kincaid MD [facility] [place] [address] SOB (shortness of breath) (Primary Dx) Social [...] 11:30 AM EST Office [place] [phone] Magdalena Peralta MD [facility] [place] [address] 03/01/2025 4:15 PM EDT Office Visit Dermatology at [place] [address] [place] [phone] Marek Bonilla MD [address], [place] [address] documented as of this encounter Results * Echocardiogram Transthoracic(Leb) (01/23/2014 3:17 PM EDT) EF 50 [facility] SYSTEM Anatomical Region Laterality Modality Other 01/23/2014 Narrative 01/23/2014 4:35 PM EDT Procedure: ? Transthoracic Echocardiogram Patient: ? ANDREW ECHOLS M ?(Age): 1955(58) Med Rec#: ?[id number] ? Sex: ?F ? Site Loc: ?[facility] ? Ht / Wt: ??158(cm)/93(kg) Pt. Loc: ? Adult Floor ?BSA: ?2.02 Study Date: ?01/23/2014 ? Pt. Type: Inpatient Tape: ? Referring: Lee Kincaid ([id number]) Referring: ANNALISA Programmer Analyst Consultant: Miguel Beverly Diagnosis:CPT Code(s): ??Echo Full (83154), ??Spectral Doppler (18076), Color Doppler (22057), Indication(s): ??Aortic stenosis Rhythm: Sinus HR ?BP [...] ? Mid-Inferior ?Hypokinetic ? Mid-Inferoseptal ?Hypokinetic ? [place]-Septal ? Hypokinetic ? [place]-Anterior ? Hypokinetic ? [place]-Lateral ?Hypokinetic ? [place]-Inferior ? Hypokinetic ? [place]-Tip ?Hypokinetic ? [place] ?Value ?Units (Range) ? [...] Images reviewed and interpretation verified [facility] Cardiac Ultrasound Laboratory Procedure Note Lee Kincaid MD - 01/23/2014 Procedure: Transthoracic Echocardiogram Patient: ANDREW Mejias (Age): 1955(58) Med Rec#: [id number] Sex: F Site Loc: [facility] Ht / Wt: 158(cm)/93(kg) Pt. Loc: Adult Floor BSA: 2.02 Study Date: 01/23/2014 Pt. Type: Inpatient Tape: Referring: Lee Kincaid ([id number]) Referring: ANNALISA Programmer Analyst Consultant: Miguel Beverly Diagnosis:CPT Code(s): Echo Full (12803), Spectral Doppler (06776), Color Doppler (00481), Indication(s): Aortic stenosis Rhythm: Sinus HR BP [...] Hypokinetic Mid-Posterolateral Hypokinetic Mid-Inferior Hypokinetic Mid-Inferoseptal Hypokinetic [place]-Septal Hypokinetic [place]-Anterior Hypokinetic [place]-Lateral Hypokinetic [place]-Inferior Hypokinetic [place]-Tip Hypokinetic [facility] Value Units (Range) IVSd 2D [...] Images reviewed and interpretation verified [facility] Cardiac Ultrasound Laboratory Lee Kincaid MD ECHO ORDERABLES documented in this encounter Visit Diagnoses Diagnosis SOB (shortness of breath)- Primary Shortness of breath documented in this encounter Care Teams Raw Finish Mill Operator Relationship Specialty Start Date End Date Danni Laird APRN [address] [facility] [place] [address] PCP - General 01/23/14 11/11/14 documented as of this encounter
--- OUTSIDE RECORDS SUMMARY | 2024-03-02 14:02 | XMS_ITS | Encounter Summary ---
Author Organization [facility] Address [facility] [place] [address] Care Team Providers Care Quarryman Name Role Phone Deborah Quiroga APRN Primary Care Provider [phone] Encounter Details Date Type Department Care Team (Late st Contact Info) Description 05/22/2016 Orders Only Cardiology at [address] [phone] Chele Randolph PA [facility] [place] [address] Aortic valve stenosis, unspecified etiology Social History [...] EST Office [place] [address] Magdalena Peralta MD [facility] [place] [address] 03/01/2025 4:15 PM EDT Office Visit Dermatology at [address] [phone] Marek Bonilla MD [address], [place] [address] documented as of this encounter Procedures Procedure Name Priority Date/Time Associated Diagnosis Comments CARDIAC CATHETERIZATION Routine 06/03/20 16 9:13 AM EDT Aortic valve stenosis, unspecified etiology documented in this encounter Results * CARDIAC CATHETERIZATION (06/03/2016 9:13 AM EDT) Anatomical Region Laterality Modality Other Narrative 06/03/2016 10:13 AM EDT ?[facility] ? Cardiac Catheterization/Intervention Report ? Patient Name: Purnima Thacker. ? Procedure Date: 06/03/2016 ? A #: [id number] ? Primary Physician: Fanny, Nitesh E ? Case #: [id number] ? File Name: [id number] ? Catheterization Order Number: [id number] ? [facility] ? Final Report [place], [place] ? Patient Name: ? Purnima M. Kirstie ? ID#: ?[id number] ? : ?1955 ? Procedure Date: ? June 03, 2016 ? Case #: ? [id number] ? Room: ? 1 ? Case Physician: ? Nitesh Escobedo M.D. ? Start: ?08:22 ?Fellow: ? Felicia Corrigan M.D. ? Admission: ??06/03/2016 ?Linda Cary M.D. ? Discharge: ??06/03/2016 ? Referring Physician: ??Kathy Padron ? Procedures: ?* Coronary Angiography ?* Right [...] no symptom, no angina (w/i 14 days). Congolese ?Cardiovascular Society angina class was 0. This [...] Nitesh Escobedo MD - 09/21/2016 [facility] Cardiac Catheterization/Intervention Report Patient Name: Purnima Thacker Procedure Date: 06/03/2016 A #: [id number] Primary Physician: Ntiesh Escobedo Case #: [id number] File Name: [id number] Catheterization Order Number: [id number] [facility] FinalReport [place], [place] Patient Name: Purnima Thacker ID#:[id number] :1955 Procedure Date: June 03, 2016 Case [...] with: no symptom, no angina (w/i 14 days).Cong[place]ese Cardiovascular Society angina class was 0. This [...] etiology documented in this encounter Care Teams Quarryman Relationship Specialty Start Date End Date Deborah Quiroga, SAP SPECIALIST PCP - General Family Medicine 03/24/16 02/04/23 documented as of this encounter
--- OUTSIDE RECORDS SUMMARY | 2024-03-02 14:02 | XMS_ITS | Encounter Summary ---
Author Organization [facility] Address [facility] [place] [address] Care Team Providers Care Prosthodontist/Educator Name Role Phone Junaid, Deborah Shields APRN Primary Care Provider [phone] Reason for Visit * Auth/Cert Specialty Diagnoses / Procedures Referred By Crispin t Referred To Contact Diagnoses AVS Procedures CARDIAC CATHETERIZATION Referral ID Status Reason Start Date Expiration Date Visits Re quested Visits Authorized [id number] 1 1 Encounter Details Date Type Department Care Team (Late st Contact Info) Description 06/03/2016 7:30 AM EDT - 06/03/2016 8:30 AM [place] [phone] Mario Alberto Escobedo MD [facility] [place] [address] CARDIAC CATHETERIZATION Social History Tobacco Use Types [...] by your doctor, do not take any unqs-acm-wloqrhr medicinesor herbal preparations without first discussing this with your doctor or pharmacist. There is the possibility of side effects and interactions when these are combined. Follow Up Care Who to call with questions or problems If there are any questions or problems that you think might be related to your cardiac cath or angioplasty, contact the stations superintendent plant operations worker by calling [place] at . * Patient Instructions* Felicia Corrigan - 06/03/2016 9:33 AM EDT Cardiology Instructions Call your doctor if: Chest pain, dyspnea, pain or swelling in legs occurs. If you have non-emergent questions between now and the time of your follow up appointments: -During 8am-5pm Wednesday through Wednesday call [phone] to speak with a nurse in the cardiology clinic -All other times call [phone] and ask to speak to the cutter hot knife plant operations worker. MEDICATIONS - restart your spironolactone, discontinue prior [...] Appointments: Primary care provider: Cardiology: Deborah Hahn, DISTRICT CAPTAIN [phone] Follow up as planned or as needed. Dr. Esparza [phone] Other follow-up appointment: Hematology - Dr. Mario [...] symptoms of presyncope anddyspnea. Please see Dr Desimones note from 05/19/2016 for H&P. She has [...] 11:30 AM EST Office [place] [address] Mgadalena Peralta MD [facility] [place] [address] 03/01/2025 4:15 PM EDT Office Visit Dermatology at [address] [place] [phone] Marek Bonilla MD [address] [facility], [place] [address] documented as of this encounter Procedures Procedure [...] Green Tube HOLD (06/03/2016 11:45 AM EDT) [facility] Green Hold Sample in lab. [facility] Blood specimen (specimen) Venous Draw / Unknown 06/03/2016 11:45 AM EDT 06/03/2016 12:12 PM EDT Mario Alberto Escobedo MD CHEMISTRY ORDERABLES Performing Organization Address City/[facility] Co de Phone Number [facility] [place] [address] * Methylmalonic acid, serum (06/03/2016 11:45 AM EDT) [facility] Methylmalonic Acid 0.21 <=0.40 nmol/mL [facility] Comment: Test Performed by: [place] [address] Energy Systems Engineer: Raymond Chaudhry II, M.D., Ph.D. Blood specimen (specimen) 06/03/2016 11:45 AM EDT 06/03/2016 1:57 PM EDT Narrative Resulting Agency Comment Spec In Lab Mario Alberto Escobedo MD CHEMISTRY ORDERABLES Performing Organization Address City/[facility]/ZIP Co de Phone Number [facility] [place] [address] * Granulocyte Antibody (06/03/2016 11:45 AM EDT) [facility] Granulocyte Ab Negative Not Applicable [facility] Comment: ADDITIONAL INFORMATION Method: Immunofluorescent Assay Performing Laboratory CLIA# [id number] This test was developed and its performance characteristics determined by [facility] in a manner consistent with CLIA requirements. This test has not been cleared or approved by the U.S. Food and Drug Administration. Test Performed by: [facility] - [address] [address] Energy Systems Engineer: Raymond Chaudhry II, M.D., Ph.D. Blood specimen (specimen) 06/03/2016 11:45 AM EDT 06/03/2016 1:57 PM EDT Narrative Resulting Agency Comment Spec In Lab Mario Alberto Escobedo MD IMMUNOLOGY ORDERABLE S Performing Organization Address [facility] de Phone Number [facility] [place] [address] * TSH (06/03/2016 11:45 AM EDT) TSH 2.18 0.27 - 4.20 mcIU/mL [facility] Blood specimen (specimen) 06/03/2016 11:45 AM EDT 06/03/2016 12:11 PM EDT Narrative Resulting Agency Comment Spec In Lab Mario Alberto Escobedo MD CHEMISTRY ORDERABLES Performing Organization Address [facility] de Phone Number [facility] [place] [id number] * Homocysteine Total, Plasma (06/03/2016 11:45 AM EDT) Homocyst Tot 9 <=15 mcmol/L [facility] Blood specimen (specimen) 06/03/2016 11:45 AM EDT 06/03/2016 12:11 PM EDT Narrative Resulting Agency Comment Spec In Lab Mario Alberto Escobedo MD CHEMISTRY ORDERABLES Performing Organization Address [facility] Co de Phone Number [facility] [place] [address] * Folate, serum (06/03/2016 11:45 AM EDT) Folate Lvl >20.0 4.8 - 24.2 ng/mL [facility] Blood specimen (specimen) 06/03/2016 11:45 AM EDT 06/03/2016 12:04 PM EDT Narrative Resulting Agency Comment Spec In Lab Mario Alberto Escobedo MD CHEMISTRY ORDERABLES Performing Organization Address City/[facility] Co de Phone Number [facility] [place] [address] * (ABNORMAL) Sedimentation rate (06/03/2016 11:45 AM EDT) Sed Rate 41(H) 0 - 20 mm/hr [facility] Blood specimen (specimen) 06/03/2016 11:45 AM EDT 06/03/2016 12:04 PM EDT Narrative Resulting Agency Comment Spec In Lab Mario Alberto Escobedo MD HEMATOLOGY ORDERABLE S Performing Organization Address [facility]/ZIP Co de Phone Number [facility] [place] [address] * Lactate Dehydrogenase (06/03/2016 11:45 AM EDT) LDH 164 110 - 220 unit/L [facility] Blood specimen (specimen) 06/03/2016 11:45 AM EDT 06/03/2016 12:11 PM EDT Narrative Resulting Agency Comment Spec In Lab Mario Alberto Escobedo MD CHEMISTRY ORDERABLES Performing Organization Address [facility]/ZIP Co de Phone Number [facility] [place] [address] * Comprehensive metabolic panel (non-fasting) (06/03/2016 11:45 AM EDT) Glucose Lvl 90 65 - 199 mg/dL [facility] Comment:Diabetes: >=200 mg/d L plus symptoms BUN 11 8 - 18 mg/dL [facility] Creatinine 0.83 0.70 - 1.20 mg/dL [facility] Comment: Please note that the pediatric reference intervals supplied above were not validated at [facility]. Results from pediatric patients should be interpreted in conjunction to the patient's age, height and muscle mass. Sodium 143 135 - 145 mmol/L [facility] Potassium 4.0 3.5 - 5.0 mmol/L [facility] Comment: Please note: ??Patients with WBC >100,000 may have falsely elevated Potassium levels. ??For accurate Potassium quantification in these patients send serum separator tube (gold top) for subsequent determinations. ??Contact the Clinical Chemistry Laboratory if there are any questions. Chloride 104 98 - 107 mmol/L [facility] CO2 25 22 - 31 mmol/L [facility] Anion Gap 14 5 - 15 mmol/L [facility] Calcium 9.2 8.5 - 10.5 mg/dL [facility] Total Protein 7.0 6.1 - 8.0 gm/dL [facility] Albumin 4.0 3.2 - 5.2 gm/dL [facility] AST 17 0 - 30 unit/L [facility] ALT 9 0 - 30 unit/L [facility] Alk Phos 81 40 - 104 unit/L [facility] Total Bilirubin 0.4 0.2 - 1.3 mg/dL [facility] Bili, Direct 0.1 0.0 - 0.3 mg/dL [facility] Estimated GFR >60 >=60 [facility] [...] the following links into your internet browser. [email or web address] Blood specimen (specimen) 06/03/2016 11:45 AM EDT 06/03/2016 12:11 PM EDT Narrative Resulting Agency Comment Spec In Lab Mario Alberto Escobedo MD CHE[place] [address] documented in this encounter Visit Diagnoses Diagnosis [...] Hernandez) documented in this encounter Care Teams Prosthodontist/Educator Relationship Specialty Start Date End Date Deborah Quiroga APRN PCP - General Family Medicine 03/24/16 02/04/23 documented as of this encounter
--- OUTSIDE RECORDS SUMMARY | 2024-03-02 14:02 | XMS_ITS | Encounter Summary ---
Author Organization [facility] [place] [address] Care Team Providers Care Property Handler Name Role Phone Mitchell Wilkes MD Primary Care Provider [phone] Encounter Details Date Type Department Care Team (Late st Contact Info) Description 01/19/2014 Orders Only Cardiology at [address] [address] Chele Randolph, EKATERINA [facility] [place] [address] Cardiomyopathy (Primary Dx) Social History [...] 11:30 AM EST [place] [address] Magdalena Peralta MD [facility] [place] [address] 03/01/2025 4:15 PM EDT Office Visit Dermatology at [place] [address] [place] [address] Marek Bonilla MD [address], [place] [address] documented as of this encounter Procedures Procedure [...] cardiomyopathies documented in this encounter Care Teams Property Handler Relationship Specialty Start Date End Date Mitchell Wilkes MD [facility] PCP - General 06/24/10 01/19/14 documented as of this encounter
[2024-03-07 14:16] VITALS: BP 111/54; PULSE 70
--- OUTSIDE RECORDS SUMMARY | 2024-03-07 14:32 | XMS_ITS | Encounter Summary ---
Author Organization [facility] Address [address] [place] [address] Care Team Providers Care Clinical Education Coordinator Name Role Phone Ashley Chavez Primary Care Provider [phone] Encounter Details Date Type Department Care Team (Latest Contact Info) Description 05/12/2019 13:18 EDT - 05/12/2019 23:59 EDT Hospital Encounter [address] [address] Unknown, Provider, Discharge Disposition: Home or Self Care Social History Tobacco Use Types Packs/Day Years Used Date Smoking Tobacco: Never Assessed Sex and Gender Information Value Date Recorded Sex Assigned at Not on file Gender Identity Not on file Sexual Orientation Not on file documented as of this encounter Discharge Disposition Disposition Code Departure Means Destination Home or Self Correction documented in this encounter Plan of Treatment Not on file documented as of this encounter Visit Diagnoses Not on filedocumented in this encounter Care Teams Clinical Education Coordinator Relationship Specialty Start Date End Date Ashley Chavez ARNP [address] [place] [address] PCP - General 07/11/10 documented as of this encounter
--- OUTSIDE RECORDS SUMMARY | 2024-03-07 14:32 | XMS_ITS | Encounter Summary ---
Author Organization [facility] Address [facility] [place] [address] Care Team Providers Care Physician Underwriter Name Role Phone Magdalena Acosta MD Primary Care Provider [phone] Encounter Details Date Type Department Care Team [...] 11:30 AM EST [place] [address] Magdalena Peralta MD [facility] [place] [address] 03/01/2025 4:15 PM EDT Office Visit Dermatology at [place] [address] [facility] [place] [address] Marek Bonilla MD [address] [place] [address] RD, [place] [address] documented as of this encounter Visit Diagnoses Not on filedocumented in this encounter Care Teams Physician Underwriter Relationship Specialty Start Date End Date Magdalena Acosta MD [address] [place] [address] PCP - General Family Medicine 02/05/23 documented as of this encounter
--- OUTSIDE RECORDS SUMMARY | 2024-03-07 14:32 | XMS_ITS | Encounter Summary ---
Author Organization [facility] Address [address] [place] [address] Care Team Providers Care Food And Beverage Intern Name Role Phone Scott Ashley WILLIAM Primary Care Provider [phone] Encounter Details Date Type Department Care Team (Late st Contact Info) Description 11/10/2013 Results Only [facility] [phone] Jeni Laird, PROCESS SERVER [address] [place], [place] [id number] Social History Tobacco Use Types Packs/Day Years [...] ? 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 Accession #: ? [id number] : ? 1955 (Age: 58) ??F ?Collect Date: ? 11/10/2013 Location: ? [facility] ? Receive Date: ? 11/14/2013 Provider: ?JENI LAIRD PROCESS SERVER Copy to: ? Specimen/Source: ?Pap Test, Endocervix, [...] Report PAUL ARELLANO 11/10/2013 11/14/2013 Jeni Laird PROCESS SERVER PATHOLOGY ORDERAB LES Performing Organization Address City/State/[facility] Co de Phone Number PAUL ARELLANO [address] [place] [address] documented in this encounter Visit Diagnoses Not on filedocumented in this encounter Care Teams Food And Beverage Intern Relationship Specialty Start Date End Date Ashley Chavez ARNP [address] [place] [address] PCP - General 07/11/10 documented as of this encounter
--- OUTSIDE RECORDS SUMMARY | 2024-03-07 14:32 | XMS_ITS | Encounter Summary ---
[place] [address] Care Team Providers Care Automatic Pinsetter Mechanic Name Role Phone Magdalena Acosta MD Primary Care Provider [phone] Encounter Details Date Type Department Care Team (Latest Contact Info) Description 10/05/2023 10:52 AM EST - 10/05/2023 11:59 PM [email or web address] Hospital [place] [address] Mixed connective tissue disease Discharge Disposition: Home Social History Tobacco Use Types Packs/Day Years Used Date Smoking Tobacco: Never Smokeless Tobacco: Never Alcohol Use Standard Drinks/Week Comments No 0 (1 standard drink = 0.6 oz pur e alcohol) none [facility] Inpatient Questions Answer Date Recorded [...] 75mg once daily. 90 tablet 3 07/20/2023 hydrOXYchloroQUINE (Plaquenil) 200 mg tablet Take 1 tablet by mouth daily. 90 tablet 12 03/18/2023 nystatin (MYCOSTATIN) 100,000 unit/gram Powder Apply topically 2 times daily as needed. 10/22/2022 amoxicillin (AMOXIL) 500 mg Tablet Take 2,000 [...] tablet Take 81 mg by mouth daily. metoproloL tartrate (Lopressor) 25 mg tablet Take 1 tablet by mouth 2 times daily. 60 tablet 3 05/22/2023 OneTouch Verio test strips Strip USE DAILY 01/03/2022 OneTouch Delica Plus Lancet 33 gauge Misc USE DAILY 01/03/2022 ticagrelor (Brilinta) 90 mg tablet Take 90 [...] 11:30 AM EST Office [place] [address] Magdalena Peralta MD [facility] [place] [address] 03/01/2025 4:15 PM EDT Office Visit Dermatology at [place] [address] [facility] [phone] Marek Bonilla MD [address], [place] [address] documented as of this encounter Procedures Procedure [...] PFT FEV1/FVC Pre-BD Z-Score 0 COMPAS PFT WOH71-79 Actual Pre-BD 2.41 % COMPAS PFT XLR56-00 Predicted 1.8 % COMPAS PFT SZP79-19 Pre-BD % of Predicted 134 % COMPAS PFT EDV16-00 Pre-BD Z-Score 0.81 COMPAS PFT DLCO Hb [...] tissue documented in this encounter Care Teams Automatic Pinsetter Mechanic Relationship Specialty Start Date End Date Magdalena Acosta MD [address] [place] [address] PCP - General Family Medicine 02/05/23 documented as of this encounter
--- OUTSIDE RECORDS SUMMARY | 2024-03-07 14:32 | XMS_ITS | Encounter Summary ---
[place] [address] Care Team Providers Care Journalism Intern Name Role Phone Magdalena Acosta MD Primary Care Provider [phone] Reason for Visit * Reason Onset Date Comments Pre Procedure Call 03/01/2024 DAPT hold for EGD and colo? Encounter Details Date Type Department Care Team (Late st Contact Info) Description 03/01/2024 Telephone Cardiology at [address] [phone] Cynthia Monsalve RN Pre Procedure Call (DAPT [...] encounter Miscellaneous Notes * Telephone Encounter - Kezia Whitney RN - 03/03/2024 11:16 AM EDT RTC to patient to relay following message below from EKATERINA Lawler. Concerning Yes, Purnima can do a short term hold of her anti platelet medications, as it has been > 6 months since PCI. She should resume both as soon as safe. Jay Message above left with Yenifer (executive personal assistant), who would be leaving this note in patient's chart for providers to schedule patient. No further questions or needs at this time. This nurse stated, note will be placed regarding this call in our chart for patient. Kezia Whitney RN, BSN Ambulatory Cardiology Clinic, [facility] [phone] * Telephone Encounter - Cynthia Monsalve RN - 03/01/2024 2:09 PM EDT Nurse Veronica from [facility] called, requesting a hold on ASA and/or Plavix for the patient's anticipated EGD and colonoscopy. -Cynthia Monsalve RN documented in this encounter Plan of Treatment Upcoming Encounters Date Type Department Care Team (Late st Contact Info) Description 06/05/2024 11:30 AM EST Office [place] [address] Magdalena Peralta MD [facility] [place] [address] 03/01/2025 4:15 PM EDT Office Visit Dermatology at [place] [address] [place] [address] Marek Bonilla MD [address], [place] [address] documented as of this encounter Visit Diagnoses Not on filedocumented in this encounter Care Teams Journalism Intern Relationship Specialty Start Date End Date Magdalena Acosta MD [address] [place] [address] PCP - General Family Medicine 02/05/23 documented as of this encounter
--- OUTSIDE RECORDS SUMMARY | 2024-03-07 14:32 | XMS_ITS | Encounter Summary ---
Author Organization [facility] [place] [address] Care Team Providers Care Bull Float Finisher Name Role Phone Magdalena Acosta MD Primary Care Provider [phone] Encounter Details Date Type Department Care Team (Late st Contact Info) Description 12/02/2023 11:15 AM EDT Office [place] [address] Magdalena Peralta MD [facility] [place] [address] Mixed connective tissue disease Social History Tobacco [...] 1:5120 speckled; VIC negative; Myositis panel with OXYHYDROGEN WELDER ab 149.1 (positive); Anti U1RNP IgG 119; [...] list of questions that she sent via [facility] ahead of her visit, which we [...] exposure. She has an appointment with her Pest Controller scheduled in January. (Dr Bonilla in [place]) ROS (positives in bold): Gen: no fevers, [...] but I encouraged her to contact her Pest Controller to see if she could have her [...] Dr. Tanisha Peralta MD Rheumatology Fellow Pager: [phone] * Federico Yee MD - 12/02/2023 11:15 [...] 11:30 AM EST Office [place] [address] Magdlaena Peralta MD [facility] [place] [address] 03/01/2025 4:15 PM EDT Office Visit Dermatology at [address] [phone] Marek Bonilla MD [address] [facility], [place] [address] Scheduled Orders Name Type Priority Associated Diagnoses Orde r Schedule EKG 12 Lead ECG Routine Mixed connective tissue disease Expected: 12/02/2023, Expires: 06/03/2024 documented as of this encounter Visit Diagnoses Diagnosis Mixed connective tissue disease Other specified diffuse disease of connective tissue documented in this encounter Care Teams Bull Float Finisher Relationship Specialty Start Date End Date Magdalena Acosta MD [address] [place] [address] PCP - General Family Medicine 02/05/23 documented as of this encounter
--- OUTSIDE RECORDS SUMMARY | 2024-03-07 14:32 | XMS_ITS | Encounter Summary ---
Author Organization [facility] Address [address] [place] [address] Care Team Providers Care Triage Nurse Name Role Phone Ashley Chvaez Primary Care Provider [phone] Encounter Details Date Type Department Care Team (Late st Contact Info) Description 01/07/2023 Lab Requisition [facility] Pathology & Laboratory Medicine - [address] [address] Outr Resulting Lab, Provider Social History Tobacco [...] 56.2 55.8 - 66.1 % 01/08/2023 11:28 [facility] Albumin g/dL 3.9 3.6 - 5.2 g/dL 01/08/2023 11:28 [facility] Alpha-1 % 5.1(H) 2.9 - 4.9 % 01/08/2023 11:28 [facility] Alpha-1 g/dL 0.40 0.15 - 0.40 g/dL 01/08/2023 11:28 [facility] Alpha-2 % 7.0(L) 7.1 - 11.8 % 01/08/2023 11:28 [facility] Alpha-2 g/dL 0.50 0.50 - 1.00 g/dL 01/08/2023 11:28 [facility] Beta % 12.7 8.4 - 13.1 % 01/08/2023 11:28 [facility] Beta g/dL 0.90 0.60 - 1.20 g/dL 01/08/2023 11:28 [facility] Gamma % 19.0(H) 11.1 - 18.8 % 01/08/2023 11:28 [facility] Gamma g/dL 1.30 0.60 - 1.60 g/dL 01/08/2023 11:28 [facility] SPEP Comment No apparent monoclonal protein seen on serum electrophoresis 01/08/2023 11:28 [facility] Comment:See scanned/suppleme ntary report. Total Protein 6.9 6.3 - 8.2 g/dL 01/08/2023 11:28 [facility] Blood VENOUS BLOOD / Unknown 01/06/2023 14:40 EDT 01/07/2023 17:37 EDT Provider Outr Resulting Lab CHEMISTRY & BLOOD GAS ORDERABLES Performing Organization Address City/State/[facility] Co de Phone Number [facility] [address] [place] [address] * PROTEIN, TOTAL (01/06/2023 14:40 EDT) Blood VENOUS BLOOD / Unknown 01/06/2023 14:40 EDT 01/07/2023 17:37 EDT Provider Outr Resulting Lab CHEMISTRY & BLOOD GAS ORDERABLES Performing Organization Address [facility] Co de Phone Number [facility] [address] [place] [address] * (ABNORMAL) EXTRACTABLE NUCLEAR ANTIGEN PANEL (01/06/2023 [...] >80.0 Units Results were obtained with the [employer] QUANTA Lite Sm DOMO. ??Sm values obtained with different manufacturers' assay methods may not be used interchangeably. ??The magnitude of the reported IgG levels cannot be correlated to an endpoint titer. CANDLE MAKER Antibody 149.1(H) <20.0 Units 01/08/2023 15:42 EDT [facility] Comment: ? Negative: <20.0 Units ? Weak Positive: 20.0 - 39.9 Units ? Moderate Positive: 40.0 - 80.0 Units ? Strong Positive: >80.0 Units Results were obtained with the RAD [employer] Quanta Lite CANDLE MAKER DOMO. CANDLE MAKER values obtained with different cat cracker operator's assay methods may not be used interchangeaby. ??The magnitude of the reported IgG levels cannot be be correlated to an endpoint titer. A positive result in the Quanta Lite CANDLE MAKER DOMO indicates the presence of antibodies reactive with the CANDLE MAKER/Sm complex but cannot distinguish between anti-Sm and anti-CANDLE MAKER activity. Blood VENOUS BLOOD / Unknown 01/06/2023 14:40 EDT 01/07/2023 17:37 EDT Provider Outr Resulting Lab IMMUNOLOGY A ND SEROLOGY ORDERABLES [facility] [address] [place] [address] * (ABNORMAL) ANTI NUCLEAR AB (FRANCISCO), IFA [...] A ND SEROLOGY ORDERABLES Performing Organization Address City/State/[facility] Co de Phone Number [facility] [address] [place] [address] documented in this encounter Visit Diagnoses Not on filedocumented in this encounter Care Teams Triage Nurse Relationship Specialty Start Date End Date Ashley Chavez ARNP [address] [place] [address] PCP - General 07/11/10 documented as of this encounter
--- OUTSIDE RECORDS SUMMARY | 2024-03-07 14:32 | XMS_ITS | Clinical Summary ---
Author Organization [facility] Address [address] [place] [address] Care Team Providers Care Negative Assembler Name Role Phone Ashley Chavez Primary Care Provider [phone] Social History Tobacco Use Types Packs/Day Years [...] COVID-19 Vaccine (2022-24 season) 2023 Care Teams Negative Assembler Relationship Specialty Start Date End Date Ashley Chavez ARNP [address] [place] [address] PCP - General 07/11/10
--- OUTSIDE RECORDS SUMMARY | 2024-03-07 14:32 | XMS_ITS | Encounter Summary ---
Author Organization [facility] Address [address] [place] [address] Care Team Providers Care Lunchroom Monitor Name Role Phone Unavailable Primary Care Provider Unavailabl e Encounter Details Date Type Department Care Team (Late st Contact Info) Description 03/24/2007 11:06 EDT - 03/24/2007 11:59 EDT Hospital Encounter [facility] - Other [address] [place] [address] Ashley Chavez ARNP [address] [place] [address] Discharge Disposition: Home or Self Care Social [...]
--- OUTSIDE RECORDS SUMMARY | 2024-03-07 14:32 | XMS_ITS | Encounter Summary ---
Author Organization [facility] Address [address] [place] [address] Care Team Providers Care Band Salvager Name Role Phone Unavailable Primary Care Provider Unavailabl e Encounter Details Date Type Department Care Team (Late st Contact Info) Description 07/08/2010 10:55 EST - 07/08/2010 10:56 EST Hospital Encounter [facility] - Other [address] [place] [address] Ashley Chavez, WILLIAM [address] [place] [id number] Discharge Disposition: Home or Self Care Social [...]
--- OUTSIDE RECORDS SUMMARY | 2024-03-07 14:32 | XMS_ITS | Encounter Summary ---
Author Organization [facility] [place] [address] Care Team Providers Care Rn Midwife Name Role Phone Magdalena Acosta MD Primary Care Provider [phone] Reason for Visit * Reason Comments Aortic Stenosis Coronary Artery Disease Hypertension Encounter Details Date Type Department Care Team (Latest Contact Info) Description 11/16/2023 11:40 AM EDT TH Visit (TeleHealth) Cardiology at [address] [address] Jay Maza PA [facility] [place] [address] Aortic valve stenosis, etiology of cardiac valve disease unspecified; Coronary artery disease, unspecified vessel or lesion type, unspecified whether angina present, unspecified whether sycuan or transplanted heart Social History Tobacco Use Types Packs/Day Years Used Date Smoking Tobacco: Never Smokeless Tobacco: Never Alcohol Use Standard Drinks/Week Comments No 0 (1 standard drink = 0.6 oz pur e alcohol) none [facility] Inpatient Questions Answer Date Recorded Does Anyone [...] from the original note were not included. [facility] Interventional Cardiology CARDIOLOGY TELE VISIT NOTE 11/16/23 Patient: Purnima Thacker Prior to the initiation of our discussion, the risks and benefits of tele health visits were discussed, and the patient consented verbally to this being a virtual telehealth visit in lieu of an in person office visit. CARDIOLOGISTS: Antelmo Sharma MD ([facility] Cards) Maria Luz Mejia MD ([facility] Cards - [facility]) Problem List: Aortic valve stenosis: [...] notable for coronary artery protection given low [id number]-lj-gnofmyea distance. There was no obstruction post Valve [...] had a very reassuring recent echo in [facility], in scanned docs. LVEF 55%. [...] leads Confirmed by MD Harshil, Haris Bell ([id number]) on 05/10/2023 8:11:46 AM Cardiac Cath 11/09/2022 [...] in one year. EKATERINA Thompson Time spent: [id number] 0-5min [id number] 6-10min [id number] 11-15min x [id number] 16-20min [id number] 21-30min 9329AHN2 31-40min [id number] 40+ min Jay Maza PA-C Interventional Cardiology [facility] Pager [phone] documented in this encounter Plan of Treatment Upcoming Encounters Date Type Department Care Team (Late st Contact Info) Description 06/05/2024 11:30 AM EST Office Visit [place] [address] Magdalena Peralta MD [facility] [place] [address] 03/01/2025 4:15 PM EDT Office Visit Dermatology at [place] [address] [facility] [place] [phone] Marek Bonilla MD [address] [place] [address] documented as of this encounter Visit Diagnoses Diagnosis Aortic valve stenosis, etiology of cardiac valve disease unspecified Coronary artery disease, unspecified vessel or lesion type, unspecified whether angina present, unspecified whether sycuan or transplanted heart documented in this encounter Care Teams Rn Midwife Relationship Specialty Start Date End Date Magdalena Acosta MD [address] [place] [address] PCP - General Family Medicine 02/05/23 documented as of this encounter
--- OUTSIDE RECORDS SUMMARY | 2024-03-07 14:32 | XMS_ITS | Encounter Summary ---
Author Organization [facility] Address [address] [place] [address] Care Team Providers Care Muck Hauler Name Role Phone Ashley Chavez Primary Care Provider [phone] Encounter Details Date Type Department Care Team (Late st Contact Info) Description 12/17/2021 Lab Requisition [facility] Pathology & Laboratory Medicine - [address] [address] Outr Resulting Lab, Provider Social History Tobacco [...] Lyme Ab Negative Negative 12/18/2021 10:37 EDT [facility] Blood VENOUS BLOOD / Unknown 12/17/2021 13:30 EDT 12/17/2021 21:32 EDT Provider Outr Resulting Lab IMMUNOLOGY A ND SEROLOGY ORDERABLES Performing Organization Address [facility] Co de Phone Number [facility] [address] [place] [address] * (ABNORMAL) ANTI NUCLEAR AB (FRANCISCO), IFA (12/17/2021 13:30 EDT) FRANCISCO Interpretation Positive(A) Negative 12/18/2021 16:06 EDT [facility] Comment: For titers greater [...] Pattern 1 1:1280 Speckled 12/18/2021 16:06 EDT [facility] Blood VENOUS BLOOD / Unknown 12/17/2021 13:30 EDT 12/17/2021 21:32 EDT Narrative [facility] - 12/18/2021 16:06 EDT Results were obtained with the INOVA NOVA Lite HEp-2 FRANCISCO Kit by indirect immunofluorescence. Provider Outr Resulting Lab IMMUNOLOGY A ND SEROLOGY ORDERABLES Performing Organization Address [facility] Co de Phone Number [facility] [address] [place] [address] documented in this encounter Visit Diagnoses Not on filedocumented in this encounter Care Teams Muck Hauler Relationship Specialty Start Date End Date Ashley Chavez ARNP [address] [place] [address] PCP - General 07/11/10 documented as of this encounter
--- OUTSIDE RECORDS SUMMARY | 2024-03-07 14:32 | XMS_ITS | Encounter Summary ---
Author Organization [facility] Address [address] [place] [address] Care Team Providers Care Tax Professional Name Role Phone Ashley Chavez Primary Care Provider [phone] Encounter Details Date Type Department Care Team (Late st Contact Info) Description 05/12/2022 Lab Requisition [facility] Pathology & Laboratory Medicine - [address] [address] Outr Resulting Lab, Provider Social History Tobacco [...] 14:32 EDT) Hold Hold 05/12/2022 22:46 EDT [facility] Blood VENOUS BLOOD / Unknown 05/12/2022 14:32 EDT 05/12/2022 21:40 EDT Provider Outr Resulting Lab LAB INFO SER VICE AND SUPPORT & PHONE RESULT Performing Organization Address [facility]/ZIP Co de Phone Number [facility] [address] [place] [address] * (ABNORMAL) HOMOCYSTEINE (05/12/2022 14:32 EDT) Homocysteine 14.7(H) 5.0 - 13.9 umol/L 05/13/2022 9:05 EDT [facility] Comment:Results may be false ly elevated if sample is not collected on ice or is not removed from cells within 1 hour of collection. Blood VENOUS BLOOD / Unknown 05/12/2022 14:32 EDT 05/12/2022 21:40 EDT Narrative [facility] - 05/13/2022 9:05 EDT [...] & BLOOD GAS ORDERABLES Performing Organization Address [facility] Co de Phone Number [facility] [address] [place] [address] * HAPTOGLOBIN (05/12/2022 14:32 EDT) Pathologist [facility] Haptoglobin 138 32 - 197 mg/dL 05/13/2022 9:55 EDT [facility] Blood VENOUS BLOOD / Unknown 05/12/2022 14:32 EDT 05/12/2022 21:36 EDT Provider Outr Resulting Lab CHEMISTRY & BLOOD GAS ORDERABLES Performing Organization Address [facility] Co de Phone Number [facility] [address] [place] [address] * (ABNORMAL) ANTI NUCLEAR AB (FRANCISCO), IFA (05/12/2022 14:32 EDT) FRANCISCO Interpretation Positive(A) Negative 05/13/2022 14:44 EDT [facility] Comment: Result is equal to or greater than 1:5120. For titers greater than or equal to 1:160 (except the centromere, nucleolar, and dense fine speckled patterns) it is recommended that specific, follow-up autoantibody testing (such as for dsDNA and Extractable Nuclear Antigens) be performed on all diffuse and/or speckled patterns. FRANCISCO Titer and Pattern 1 1:5120 Speckled 05/13/2022 14:44 EDT [facility] Blood VENOUS BLOOD / Unknown 05/12/2022 14:32 EDT 05/12/2022 21:36 EDT Narrative [facility] - 05/13/2022 14:44 EDT Results were obtained with the INOVA NOVA Lite HEp-2 FRANCISCO Kit by indirect immunofluorescence. Provider Outr Resulting Lab IMMUNOLOGY A ND SEROLOGY ORDERABLES [facility] [address] [place] [address] documented in this encounter Visit Diagnoses Not on filedocumented in this encounter Care Teams Tax Professional Relationship Specialty Start Date End Date Ashley Chavez ARNP [address] [place] [address] PCP - General 07/11/10 documented as of this encounter
--- OUTSIDE RECORDS SUMMARY | 2024-03-07 14:32 | XMS_ITS | Encounter Summary ---
Author Organization [facility] Address [address] [place] [address] Care Team Providers Care Metal Welder Name Role Phone Scott Ashley WILLIAM Primary Care Provider [phone] Encounter Details Date Type Department Care Team (Late st Contact Info) Description 05/12/2019 Results Only [facility] [phone] Nadira Gregorio MD [address] [place] [phone] Social History Tobacco Use Types Packs/Day [...] ? 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 Accession #: ? [id number] ? : ? 1955 (Age: 63) ??F ? Collect Date: ? 05/12/2019 ? Location: ? [facility] ? Receive Date: ? 05/12/2019 ? Provider: NADIRA GREGORIO MD Copy to: WINTER HANKINS EVENT MARKETING INTERN ? Final Pathologic Diagnosis: COLON, CECUM, POLYP, [...] (ASCP) 05/12/2019 6:08 PM End of Report [facility] 05/12/2019 16:0 3 EDT 05/12/2019 16:03 EDT Nadira Gregorio MD PATHOLOGY ORDERABLES [facility] [address] [place] [address] documented in this encounter Visit Diagnoses Not on filedocumented in this encounter Care Teams Metal Welder Relationship Specialty Start Date End Date Ashley Chavez ARNP [address] [place] [address] PCP - General 07/11/10 documented as of this encounter
--- OUTSIDE RECORDS SUMMARY | 2024-03-07 14:32 | XMS_ITS | Encounter Summary ---
[place] [address] Care Team Providers Care Waste And Batting Waste Chopper Name Role Phone Magdalena Acosta MD Primary Care Provider [phone] Reason for Visit * Reason Comments Annual Exam Encounter Details Date Type Department Care Team (Late st Contact Info) Description 02/22/2024 4:15 PM EDT Office Visit Dermatology at [address] [phone] Marek Bonilla MD [address] [facility], [facility] A DERMATOLOGY [place], [place] [id number] Seborrheic keratosis; Rosacea; Nevus Social History Tobacco [...] cutaneous and ocular 3. Previously told by rn transfer that she had corneal tears from her [...] EST Office [place] [address] Magdalena Peralta MD [facility] [place] [address] 03/01/2025 4:15 PM EDT Office Visit Dermatology at [place] [address] [facility] [place] [phone] Marek Bonilla MD [address] [facility] [place] [address] documented as of this encounter Visit Diagnoses Diagnosis Seborrheic keratosis Other seborrheic keratosis Rosacea Nevus Benign neoplasm of skin, site unspecified documented in this encounter Care Teams Waste And Batting Waste Chopper Relationship Specialty Start Date End Date Magdalena Acosta MD [address] [place] [address] PCP - General Family Medicine 02/05/23 documented as of this encounter
--- OUTSIDE RECORDS SUMMARY | 2024-03-07 14:32 | XMS_ITS | Encounter Summary ---
Author Organization [facility] Address [address] [place] [address] Care Team Providers Care Scouring Pads Supervisor Name Role Phone Unavailable Primary Care Provider Unavailabl e Encounter Details Date Type Department Care Team (Late st Contact Info) Description 06/29/2007 Results Only [facility] [address] [place] [address] Sánchez Acevedo MD [address] [place] [address] Social History Tobacco Use Types Packs/Day Years [...] ? 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 Accession #: ? [id number] ? : ? 1955 (Age: 51) ??F [...] gallbladder are submitted in one cassette. ??(Sriram Elias/[facility] End of Report [facility] 06/29/2007 06/29/2007 21: 23 EST Sánchez Acevedo MD PATHOLOGY ORDERABLE [facility] [address] [place] [address] documented in this encounter Visit Diagnoses Not on filedocumented in this encounter
--- OUTSIDE RECORDS SUMMARY | 2024-03-07 14:32 | XMS_ITS | Clinical Summary ---
Author Organization [facility] Address [facility] [place] [address] Care Team Providers Care Central Processing Tech Name Role Phone Magdalena Acosta MD Primary Care Provider [phone] Allergies No known active allergies Medications Medication [...] experiencing pain -05/11.). 30 tablet 5 09/25/2016 Active amoxicillin (AMOXIL) [...] 05/08/2023 Mild coronary artery disease by [facility] 11/09/2022 Heart failure with reduced e jection [...] Care Team Description 03/01/2024 Telephone Cardiology at [address] [address] Cynthia Monsalve RN Pre Procedure Call (DAPT hold for EGD and colo?) 02/22/2024 4:15 PM EDT Office Visit Dermatology at [address] [address] Marek Bonilla MD Seborrheic keratosis; Rosacea; Nevus 02/22/2024 Travel 12/16/2023 Orders Only Cardiology at [address] [address] Antelmo Sharma MD S/P TAVR (transcatheter aortic valve replacement) from Last 3 Months Immunizations Name Administration [...] 11:30 AM EST Office [place] [address] Magdalena Peralta MD [facility] [address] 03/01/2025 4:15 PM EDT Office Visit Dermatology at [place] [address] [place] [address] Marek Bonilla MD [address], [place] [address] Health Maintenance Due Date Last Done Comments [...] 06/05/2036 06/05/2021 Medical Devices Implanted Type Area Janitorial Services Supervisor Device Identifier Shelf Expiration Date Model / Serial / Lot Valve,Aor,Pericar d,Magna,25mm ([id number]) - [id number] Implanted:Qty: 1 on 09/21/2016 by Alirio Esparza MD at [facility] IMPLANTS N/A: Heart DO NOT USE [employer] - [id number] 06/02/2020 [id number] / / [id number] Cable,Blnt,Ss,38i n ([id number]) - [id number] Implanted:Qty: 4 on 09/21/2016 by Alirio Esparza MD at N [facility] IMPLANTS N/A: Chest [employer] - [id number] 04/29/2021 [id number] / / [id number] Patch,Cav,Pericar d,2x5cm ([id number]) (Autoreq) - [id number] Implanted:Qty: 1 on 09/21/2016 by Alirio Esparza MD at [facility] IMPLANTS N/A: Heart DO NOT USE [employer] - [id number] 04/21/2018 [id number] / / [id number] Tavr-05/12/2023 Implanted:Qty: 1 on 05/12/2023 by Antelmo Sharma MD Other Heart [employer] - JAIME LI [id number] / [id number] / Description:JAIME LIFESCIE NCES ABBY 3 ULTRA RESILIA TRANSCATHETER HEART VALVE Procedures Procedure Name Priority Date/Time Associated Diagnosis Comments LAB SCAN 02/24/2024 12:00 AM EDT COMPREHENSIVE METABOLIC PANEL Routine 07/08/2023 11:56 AM EST S/P TAVR [...] panel (non-fasting) (07/08/2023 11:56 AM EST) Glucose 93 65 - 199 mg/dL [facility] Comment:Diabetes: >=200 mg/d L plus symptoms Blood Urea Nitrogen 19(H) 8 - 18 mg/dL [facility] Creatinine 0.81 0.70 - 1.20 mg/dL [facility] Sodium 142 135 - 145 mmol/L [facility] Potassium 3.8 3.5 - 5.0 mmol/L [facility] Comment: Please note: ??Patients with WBC >100,000 may have falsely elevated Potassium levels. ??For accurate Potassium quantification in these patients send serum separator tube (gold top) for subsequent determinations. ??Contact the Clinical Chemistry Laboratory if there are any questions. Chloride 104 98 - 107 mmol/L [facility] Carbon Dioxide 26 22 - 31 mmol/L [facility] Anion Gap 12 5 - 15 mmol/L [facility] Calcium 10.2 8.5 - 10.5 mg/dL [facility] Protein, Total 7.4 6.1 - 8.0 g/dL [facility] Albumin 4.1 3.2 - 5.2 g/dL [facility] Aspartate Aminotransferase 24 0 - 30 unit/L [facility] Alanine Aminotransferase 12 0 - 30 unit/L [facility] Alkaline Phosphatase 93 35 - 105 unit/L [facility] Bilirubin, Total 0.3 0.2 - 1.3 mg/dL [facility] Est Glomerular Filtration Rate 80 >=60 mL/min/1. 73 m?? [facility] Comment: This patient's estimated GFR [...] Lab Alirio Esparza MD CHEMISTRY ORDERABLE S [facility] [place] [address] * DXA Central Spine, Hip, and/or Whole Body (Generic) (06/05/2021 11:58 AM EDT) PT CLASS O RAD ADMITDTTM RAD PT SYLVIA CULP INFO [id number]^E VERETT^DEBORAH ^E RAD EXAM DESC XDXAC^DEXA SCAN [...] have questions please contact the health child care group leader that requested your imaging first. ? Narrative [...] who have questions please contactthe health child care group leader that requested your imaging first. Deborah E Junaid AEROLOGIST IMG DEXA ORDERABLES * Mammo Screening Cad Bilateral (06/05/2021 11:42 AM EDT) PT CLASS O RAD ADMITDTTM DH RAD PT RAD INFO [id number]^EV ERETT^DEBORAH^E RAD EXAM DESC MADDSC^SCREEN MAMMO BL [...] have questions please contact the health child care group leader that requested your imaging first. ? Narrative [...] who have questions please contactthe health child care group leader that requested your imaging first. Deborah Quiroga [...] capacity to make decision: Yes Care Teams Central Processing Tech Relationship Specialty Start Date End Date Magdalena Acosta MD [address] [place] [address] PCP - General Family Medicine 02/05/23
--- OUTSIDE RECORDS SUMMARY | 2024-03-07 14:32 | XMS_ITS | Encounter Summary ---
Author Organization [facility] Address [address] [place] [address] Care Team Providers Care Retail Manager Name Role Phone Unavailable Primary Care Provider Unavailabl e Encounter Details Date Type Department Care Team (Late st Contact Info) Description 04/20/2005 Results Only [facility] - [facility] [address] [place] [address] Ziggy Valiente MD [address] [place] [address] [id number] Social History Tobacco Use Types Packs/Day Years [...] ? 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 Accession #: ? [id number] ? : ? 1955 (Age: 49) ??F [...] correlation with endoscopic appearance is recommended. (Dr. Chino)/[facility] Document reviewed and electronically signed [...] is entirely submitted in one cassette. ??(Arabella Santos)/[facility] End of Report PAUL ARELLANO 04/20/2005 04/21/2005 15: 04 EDT Ziggy Valiente MD PATHOLOGY ORDERABLES PAUL ARELLANO [address] [place] [address] documented in this encounter Visit Diagnoses Not on filedocumented in this encounter
--- OUTSIDE RECORDS SUMMARY | 2024-03-07 14:32 | XMS_ITS | Encounter Summary ---
Author Organization [place] [address] Care Team Providers Care Respiratory Services Manager Name Role Phone Magdalena Acosta MD Primary Care Provider [phone] Reason for Referral * Diagnostic Test (Routine) - New Request Specialty Diagnoses / Procedures Referred By Contac t Referred To Contact Cardiology Diagnoses S/P TAVR (transcatheter aortic valve replacement) Procedures Echocardiogram Transthoracic Antelmo Sharma MD [facility] [place] [address] [facility] [place] [address] Referral ID Status Reason Start Date Expiration Date Visits Requested Visits Authorized [id number] New Request Specialty Service Requested 12/16/2023 12/15/2024 1 1 Encounter Details Date Type Department Care Team (Late st Contact Info) Description 12/16/2023 Orders Only Cardiology at [address] [address] Antelmo Sharma MD [facility] [place] [address] S/P TAVR (transcatheter aortic valve [...] 11:30 AM EST [place] [address] Magdalena Peralta MD [facility] [place] [address] 03/01/2025 4:15 PM EDT Office Visit Dermatology at [place] [address] [place] [address] Marek Bonilla MD [address], [place] [address] Scheduled Orders Name Type Priority Associated Diagnoses [...] replacement) documented in this encounter Care Teams Respiratory Services Manager Relationship Specialty Start Date End Date Magdalena Acosta MD [address] [place] [address] PCP - General Family Medicine 02/05/23 documented as of this encounter
--- OUTSIDE RECORDS SUMMARY | 2024-03-07 14:32 | XMS_ITS | Referral Summary ---
Author Organization [facility] Address [address] [place] [address] Care Team Providers Care Roof Mechanic Name Role Phone Ashley Chavez Primary Care Provider [phone] Social History Tobacco Use Types Packs/Day Years Used Date Smoking Tobacco: Never Assessed Interpersonal Safety Answer Date Record ed Physically Hurt Never 03/03/2020 Verbally Threaten Not on file 03/03/2020 Sex and Gender Information Value Date Recorded Sex Assigned at Not on file Gender Identity Not on file Sexual Orientation Not on file Plan of Treatment Not on file Care Teams Roof Mechanic Relationship Specialty Start Date End Date Ashley Chavez ARNP [address] [place] [address] PCP - General 07/11/10
--- OUTSIDE RECORDS SUMMARY | 2024-03-07 14:32 | XMS_ITS | Encounter Summary ---
Author Organization [facility] Address [address] [place] [address] Care Team Providers Care Bridge Design Engineer Name Role Phone Unavailable Primary Care Provider Unavailabl e Encounter Details Date Type Department Care Team (Late st Contact Info) Description 07/08/2010 Results Only [facility] Non-Invasive Cardiology - [facility] [address] [place] [address] Ashley Chavez, WILLIAM [address] [place] [address] Social History Tobacco Use Types Packs/Day Years [...] ? 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 Accession #: ? [id number] ? : ? 1955 (Age: 54) ??F [...] Ashley THOMAS PATHOLOGY ORDERABLES PAUL ARELLANO [address] [place] [address] documented in this encounter Visit Diagnoses Not on filedocumented in this encounter
--- OUTSIDE RECORDS SUMMARY | 2024-03-07 14:32 | XMS_ITS | Encounter Summary ---
Author Organization [facility] Address [address] [place] [address] Care Team Providers Care Fast Food Attendant Name Role Phone Ashley Chavez Primary Care Provider [phone] Encounter Details Date Type Department Care Team (Late st Contact Info) Description 10/30/2022 Lab Requisition [facility] Pathology & Laboratory Medicine - [address] [address] Outr Resulting Lab, Provider Social History Tobacco [...] Stranded) <12.3 <30.0 IU/mL 11/03/2022 13:08 EDT [facility] Comment: ? Negative: ??<30.0 IU/mL ? Borderline Positive: ??30.0 - 75.0 IU/mL ? Positive: ??>75.0 IU/mL Results were obtained with the [employer] QUANTA Lite dsDNA SC DOMO assay on the [employer] DSX. Blood VENOUS BLOOD / Unknown 10/29/2022 14:00 EDT 10/30/2022 19:27 EDT Provider Outr Resulting Lab IMMUNOLOGY A ND SEROLOGY ORDERABLES Performing Organization Address [facility] de Phone Number [facility] [address] [place] [address] * SM (MORENO) ANTIBODY (10/29/2022 14:00 EDT) [facility] SM (Moreno) Antibody 18.5 <20.0 Units 11/03/2022 14:26 EDT [facility] Comment: ? Negative: [...] A ND SEROLOGY ORDERABLES Performing Organization Address [facility] de Phone Number [facility] [address] [place] [address] documented in this encounter Visit Diagnoses Not on filedocumented in this encounter Care Teams Fast Food Attendant Relationship Specialty Start Date End Date Ashley Chavez ARNP [address] [place] [address] PCP - General 07/11/10 documented as of this encounter
--- OUTSIDE RECORDS SUMMARY | 2024-03-07 14:32 | XMS_ITS | Encounter Summary ---
Author Organization [facility] Address [address] [place] [address] Care Team Providers Care Head Of Academic Technology Name Role Phone Scott, Ashley WILLIAM Primary Care Provider [phone] Encounter Details Date Type Department Care Team (Late st Contact Info) Description 12/23/2016 Results Only [facility] [phone] Deborah Quiroga, EDUCATION REP [address] [place] [phone] Social History Tobacco Use Types Packs/Day Years [...] ? 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 Accession #: ? [id number] ? : ? 1955 (Age: 61) ??F ?Collect Date: ? 12/23/2016 ? Location: ? [facility] ? Receive Date: ? 12/25/2016 ? Provider: DEBORAH QUIROGA DENTAL CHAIRSIDE ASSISTANT Copy to: ? Final Report SPECIMEN ADEQUACY ? Satisfactory for Evaluation - transformation zone component present GENERAL CATEGORIZATION ? Negative for Intraepithelial Lesion or Malignancy ?? Last Menstrual Period: years Specimen/Source: ??Pap Test, Cervix, ThinPrep Imaging System with manual evaluation Document reviewed and electronically signed by: ? Monica Cason [facility](ASCP) ? Report ??Date: 01/06/2017 09:11 HPV with Pap Test ? Date Ordered: ? 01/06/2017 ? Status: ?? Signed Out ?Date Complete: ? 01/07/2017 ? By: ??System Interface ? Date Reported: ? 01/07/2017 ? Interpretation RESULT: Negative for HPV. No E6 or E7 mRNA is detected from HPV types 16,18,31,33,35, 39,45,51,52,56,58, 59,66, and 68 by wallpaper cleaner mediated amplification. Comments Document reviewed and electronically signed by: ? System Interface ? Report date: 01/07/2017 By the signature above, the attending physician certifies that he/she has personally conducted a gross and/or microscopic examination of the described specimens and rendered or confirmed the above diagnosis. End of Report [facility] 12/23/2016 12/25/2016 Deborah Quiroga EDUCATION REP PATHOLOGY ORDERABLES [facility] [address] [place] [address] documented in this encounter Visit Diagnoses Not on filedocumented in this encounter Care Teams Head Of Academic Technology Relationship Specialty Start Date End Date Ashley Chavez ARNP [address] [place] [address] PCP - General 07/11/10 documented as of this encounter
--- OUTSIDE RECORDS SUMMARY | 2024-03-07 14:32 | XMS_ITS | Encounter Summary ---
Author Organization [facility] Address [address] [place] [address] Care Team Providers Care Control Tower Operator Name Role Phone Ashley Chavez Primary Care Provider [phone] Encounter Details Date Type Department Care Team (Late st Contact Info) Description 06/23/2016 Results Only [facility] [phone] Matthew Acevedo, DO [address] [facility] [place] [address] [place] [address] Social History Tobacco Use Types Packs/Day [...] ? 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 Accession #: ? [id number] : ? 1955 (Age: 60) ??F ?Collect [...] ??400 ?? KARYOTYPE: 46,XX[25] End of Report [facility] 06/23/2016 06/24/2016 Matthew Acevedo DO PATHOLOGY ORDER JODIE [facility] [address] [place] [address] * FLOW CYTOMETRY (06/23/2016 0:00 EST) Pathology Report: FLOW CYTOMETRY REPORT Reports generated via electronic interface contain original data; however they are lacking the format of the original report. Caution should be taken when reading/interpreting unformatted reports. Name: ? 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 Accession #: ? [id number] : ? 1955 (Age: 60) ??F ?Collect Date: ? 06/23/2016 00:00 Location: ? [facility] ? Receive Date: ? 06/24/2016 08:00 Provider: ?MATTHEW ACEVEDO DO Copy to: ?WINTER HANKINS LOOM CHECKER MARIO ALBERTO RAMOS MD ? FINAL IMMUNOPHENOTYPIC INTERPRETATION: ? Bone marrow, flow cytometric analysis: -No immunophenotypic evidence of a clonal cell population. ??See comment. ? COMMENT: The results of flow cytometry show no immunophenotypic evidence of involvement by a clonal lymphoproliferative or myeloproliferative disorder. ??Correlation of these findings with morphologic and clinical data is essential. ??Please refer to pathology report number [id number] for morphologic details. ? Document reviewed and [...] the Department of Pathology and Laboratory Medicine, [place] ??It has not been cleared or [...] clinical laboratory testing. End of Report ?? [facility] 06/23/2016 06/24/2016 8:0 0 EST Matthew Acevedo DO PATHOLOGY ORDER JODIE [facility] [address] [place] [address] * BONE MARROW/HEMPATH CONSULT (06/23/2016 0:00 EST) Pathology Report: BONE MARROW REPORT Reports generated via electronic interface contain original data; however they are lacking the format of the original report. Caution should be taken when reading/interpreting unformatted reports. Name: ? 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 Accession #: ? [id number] : ? 1955 (Age: 60) ??F ?Collect Date: ? 06/23/2016 Location: ? [facility] ? Receive Date: ? 06/24/2016 Provider: ? MATTHEW ACEVEDO DO Copy to: ?WINTER HANKINS LOOM CHECKER MARIO ALBERTO RAMOS MD ? DIAGNOSIS: Peripheral [...] #1: Aggregate biopsy length: 8 mm with bed machine operator trabeculae of lamellar bone, cellular bone [...] SEE ABOVE DISCUSSION Lambda (polyclonal, Dako) ??(B1): [place] (polyclonal, Dako) ??(B1): Biopsy (decalcified) #2: Aggregate biopsy length: 8 mm with bed machine operator trabeculae of lamellar bone, cellular bone [...] (M115, Leica) ??(B2): Lambda (polyclonal, Dako) ??(B2): [place] (polyclonal, Dako) ??(B2): NOTE: ??One or more [...] ? 1% Blasts ?1% Special Studies Cytogenetics ([id number]): Pending. Flow Cytometry ([id number]): No immunophenotypic evidence of a clonal cell population. ? End of Report [facility] 06/23/2016 06/24/2016 Matthew Acevedo DO PATHOLOGY ORDER JODIE [facility] [address] [place] [address] documented in this encounter Visit Diagnoses Not on filedocumented in this encounter Care Teams Control Tower Operator Relationship Specialty Start Date End Date Ashley Chavez ARNP [address] [place] [address] PCP - General 07/11/10 documented as of this encounter
--- OUTSIDE RECORDS SUMMARY | 2024-03-07 14:32 | XMS_ITS | Encounter Summary ---
Author Organization [facility] Address [facility] [place] [address] Care Team Providers Care Generation Mechanic Helper Name Role Phone Magdalena Acosta MD Primary Care Provider [phone] Encounter Details Date Type Department Care Team [...] 11:30 AM EST Office [place] [address] Magdalena Peralta MD [facility] [place] [address] 03/01/2025 4:15 PM EDT Office Visit Dermatology at [place] [address] [facility] [phone] Marek Bonilla MD [address] [place] [address] RD, [place] [address] documented as of this encounter Visit Diagnoses Not on filedocumented in this encounter Care Teams Generation Mechanic Helper Relationship Specialty Start Date End Date Magdalena Acosta MD [address] [place] [address] PCP - General Family Medicine 02/05/23 documented as of this encounter
--- OUTSIDE RECORDS SUMMARY | 2024-03-07 14:32 | XMS_ITS | Encounter Summary ---
Author Organization [facility] Address [address] [place] [address] Care Team Providers Care Passenger Car Upholsterer Apprentice Name Role Phone Ashley Chavez Primary Care Provider [phone] Encounter Details Date Type Department Care Team (Late st Contact Info) Description 04/29/2022 Lab Requisition [facility] Pathology & Laboratory Medicine - [address] [address] Outr Resulting Lab, Provider Social History Tobacco [...] 1.6 <20.0 Units 04/30/2022 12:23 EDT [facility] Comment: ? Negative: <20.0 [...] A ND SEROLOGY ORDERABLES Performing Organization Address [facility] de Phone Number [facility] [address] [place] [address] * SSA ANTIBODIES BY DOMO (04/29/2022 7:51 EDT) SSA Antibody 1.5 <20.0 Units 04/30/2022 12:22 EDT [facility] Comment: ? Negative: <20.0 [...] A ND SEROLOGY ORDERABLES Performing Organization Address [facility] de Phone Number [facility] [address] [place] [address] documented in this encounter Visit Diagnoses Not on filedocumented in this encounter Care Teams Passenger Car Upholsterer Apprentice Relationship Specialty Start Date End Date Ashley Chavez ARNP [address] [place] [address] PCP - General 07/11/10 documented as of this encounter
--- OUTSIDE RECORDS SUMMARY | 2024-03-07 14:32 | XMS_ITS | Encounter Summary ---
Author Organization [facility] Address [facility] [place] [address] Care Team Providers Care Fisheries Enforcement Officer Name Role Phone Magdalena Acosta MD Primary Care Provider [phone] Encounter Details Date Type Department Care Team [...] 11:30 AM EST Office [place] [address] Magdalena Peralta MD [facility] [place] [address] 03/01/2025 4:15 PM EDT Office Visit Dermatology at [place] [address] [facility] [place] [phone] Marek Bonilla MD [address] [place] [address] RD, [place] [address] documented as of this encounter Visit Diagnoses Not on filedocumented in this encounter Care Teams Fisheries Enforcement Officer Relationship Specialty Start Date End Date Magdalena Acosta MD [address] [place] [address] PCP - General Family Medicine 02/05/23 documented as of this encounter
--- OUTSIDE RECORDS SUMMARY | 2024-03-07 14:32 | XMS_ITS | Encounter Summary ---
Author Organization [facility] Address [address] [place] [address] Care Team Providers Care Warehouse Shipping Clerk Name Role Phone Unavailable Primary Care Provider Unavailabl e Encounter Details Date Type Department Care Team (Late st Contact Info) Description 03/24/2007 Results Only [facility] Non-Invasive Cardiology - [facility] [address] [place], [place] [address] Ashley Chavez ARNP [address] [place] [address] Social History Tobacco Use Types Packs/Day Years [...] ? 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 Accession #: ? [id number] : ? 1955 (Age: 51) ??F ?Collect Date: ? 03/24/2007 Location: ? [facility] ? Receive Date: ? 03/28/2007 Provider: ?ASHLEY THOMAS Copy to: ? Specimen/Source: ?ThinPrep Pap Test, Endocervix, processed on [employer] ThinPrep Imaging System, with manual evaluation Last [...] Ashley THOMAS PATHOLOGY ORDERABLES PAUL ARELLANO [address] [place] [address] documented in this encounter Visit Diagnoses Not on filedocumented in this encounter
--- OUTSIDE RECORDS SUMMARY | 2024-03-07 14:33 | XMS_ITS | Encounter Summary ---
Author Organization [facility] Address [facility] [place] [address] Care Team Providers Care Oenologist Name Role Phone Magdalena Acosta MD Primary [...] 11:30 AM [place] [address] Magdalena Peralta MD [facility] [address] 03/01/2025 4:15 PM EDT Office Visit Dermatology at [place] [address] [facility] [place] [phone] Marek Bonilla MD [address] [place] [address] RD, [place] [address] documented as of this encounter Visit Diagnoses Not on filedocumented in this encounter Care Teams Oenologist Relationship Specialty Start Date End Date Magdalena Acosta MD [address] [place] [address] PCP - General Family Medicine 02/05/23 documented as of this encounter
--- OUTSIDE RECORDS SUMMARY | 2024-03-07 14:33 | XMS_ITS | Encounter Summary ---
Author Organization [facility] [place] [address] Care Team Providers Care Parts Remover Name Role Phone Magdalena Acosta MD Primary Care Provider [phone] Reason for Referral * Diagnostic Test (Routine) - Closed Specialty Diagnoses / Procedures Referred By Contac t Referred To Contact Cardiology Diagnoses S/P TAVR (transcatheter aortic valve replacement) Procedures Echocardiogram Transthoracic Vinod Juárez PA [facility] [place] [address] [facility] [place] [address] Referral ID Status Reason Start Date Expiration Date V isits Requested Visits Authorized [id number] Closed Specialty Service Requested 05/22/2023 05/21/2024 1 1 Reason for Visit * Diagnostic Test (Routine) - Closed Specialty Diagnoses / Procedures Referred By Contac t Referred To Contact Cardiology Diagnoses S/P TAVR (transcatheter aortic valve replacement) Procedures Echocardiogram Transthoracic Vinod Juárez PA [facility] [place] [address] [facility] [place] [address] Referral ID Status Reason Start Date Expiration Date V isits Requested Visits Authorized [id number] Closed Specialty Service Requested 05/22/2023 05/21/2024 1 1 Encounter Details Date Type Department Care Team (Latest Contact Info) Description 07/08/2023 10:19 AM EST - 07/08/2023 11:59 PM EST Hospital Encounter Non-Invasive Cardiology Lab Formerly [facility] [place] [address] Alirio Esparza MD [facility] [place] [address] S/P TAVR (transcatheter aortic valve replacement) Discharge [...] Sig Dispensed Refills Start Date End Date hydrOXYchloroQUINE (Plaquenil) 200 mg tablet Take 1 [...] Lancet 33 gauge Misc USE DAILY 01/03/2022 clopidogreL (Plavix) 75 mg tabletIndications:Aor tic valve [...] 11:30 AM EST Office [place] [address] Magdalena Peralta MD [facility] [place] [address] 03/01/2025 4:15 PM EDT Office Visit Dermatology at [address] [place] [address] Marek Bonilla MD [address] [place] [address], [place] [address] documented as of this encounter Procedures Procedure [...] EST Narrative 07/08/2023 12:26 PM EST 1 [place] [address] ? Echocardiogram Report Name: LASHELL THACKEROUMARIZA Mejias ?Study Date: 07/08/2023 10:31 AMBP: 118/60 mmHg ? Patient Location: 4A : 1955 ? Height: 155 cm ? Account: [id number] Age: 67 yrs ? Weight: 74 kg [...] no significant change (post-procedure). Procedure Limited - 82424. Doppler - 31154. Color Doppler - 62148. Satisfactory quality. This study is limited because [...] Note Lee Kincaid MD - 07/08/2023 1 [place] [address] Echocardiogram Report Name: ANDREW NOESIMO M Study Date: 0:31 AMBP: 118/60 mmHg Patient Location: : 1955 Height: 155 cm Account: [id number] Age: 67 yrs Weight: 74 kg Gender: [...] is nosignificant change (post-procedure). Procedure Limited - 99922. Doppler - 64020. Color Doppler - 36244. Satisfactoryquality. This study is limited because of [...] replacement) documented in this encounter Care Teams Parts Remover Relationship Specialty Start Date End Date Magdalena Acosta MD [address] [place] [address] PCP - General Family Medicine 02/05/23 documented as of this encounter
--- OUTSIDE RECORDS SUMMARY | 2024-03-07 14:33 | XMS_ITS | Encounter Summary ---
Author Organization [facility] Address [facility] [place] [address] Care Team Providers Care Career Coach Name Role Phone Magdalena Acosta MD Primary Care Provider [phone] Encounter Details Date Type Department Care Team [...] 11:30 AM EST Office [place] [address] Magdalena Peralta MD [facility] [address] 03/01/2025 4:15 PM EDT Office Visit Dermatology at [place] [address] [facility] [place] [address] Marek Bonilla MD [address] [place] [address] RD, [place] [address] documented as of this encounter Visit Diagnoses Not on filedocumented in this encounter Care Teams Career Coach Relationship Specialty Start Date End Date Magdalena Acosta MD [address] [place] [address] PCP - General Family Medicine 02/05/23 documented as of this encounter
--- OUTSIDE RECORDS SUMMARY | 2024-03-07 14:33 | XMS_ITS | Encounter Summary ---
Author Organization Count Includes [facility] Address [facility] [place] [address] Care Team Providers Care Psychological Anthropologist Name Role Phone Magdalena Acosta MD Primary Care Provider [phone] Encounter Details Date Type Department Care Team (Latest Contact Info) Description 07/08/2023 12:35 PM EST Laboratory Appointment Lab [address]L [place] [address] S/P TAVR (transcatheter aortic valve [...] 11:30 AM EST Office [place] [address] Magdalena Peralta MD [facility] [place] [address] 03/01/2025 4:15 PM EDT Office Visit Dermatology at [place] [address] [place] [address] Marek Bonilla MD [address], [address] [place] [address] documented as of this encounter Procedures Procedure Name Priority Date/Time Associated Diagnosis Comments HEMOGRAM Routine 07/08/2023 11:56 AM EST S/P TAVR (transcatheter aortic valve replacement) DIFFERENTIAL, AUTOMATED Routine 07/08/2023 11:56 AM EST S/P TAVR (transcatheter aortic valve replacement) CBC (WITH DIFF) Routine 07/08/2023 11:56 AM EST S/P TAVR (transcatheter aortic valve replacement) COMPREHENSIVE METABOLIC PANEL Routine 07/08/2023 11:56 AM EST S/P TAVR (transcatheter aortic valve replacement) documented in this encounter Results * (ABNORMAL) Differential, Automated (07/08/2023 11:56 AM EST) Neutrophil % 73.2 % [facility] Neutrophil Absolute 3.40 1.70 - 6.10 x10(3)/mc L [facility] Lymph % 16.1 % [facility] Lymphocytes Abs 0.8(L) 0.9 - 3.2 x10(3)/mc L [facility] Monocyte % 9.7 % [facility] Monocyte Abs 0.4 0.3 - 0.9 x10(3)/mc L [facility] Eos % 0.4 % [facility] Eosinophils Abs 0.0 0.0 - 0.4 x10(3)/mc L [facility] Basophil % 0.4 % [facility] Baso Absolute 0.0 0.0 - 0.1 x10(3)/mc L [facility] Immature Gran % 0.20 % [facility] Comment: Immature granulocytes(IG's)percentage and absolute count will include metamyelocytes, myelocytes, and promyelocytes. Blood smears from CBCs yielding IG's will be scanned manually for concordance. If this scan disagrees with the automated IG or if promyelocytes are noted, a manual differential will be performed. Immature Gran Absolute 0.01 0.00 - 0.04 x10(3)/mc L [facility] Blood 07/08/2023 11:5 6 AM EST 07/08/2023 12:02 PM EST Narrative Resulting Agency Comment Spec In Lab Minh TOBAR HEMATOLOGY ORDERABLE S [facility] [place] [address] * (ABNORMAL) Hemogram (07/08/2023 11:56 AM EST) White Blood Cell 4.6 4.0 - 9.5 x10(3)/mc L [facility] Red Blood Cell 3.34(L) 4.00 - 5.21 x10(6)/mc L [facility] Hemoglobin 11.0(L) 11.7 - 15.5 g/dL [facility] Hematocrit 33.2(L) 35.7 - 45.8 % [facility] Mean Cell Volume 99.4(H) 82.6 - 94.4 fL [facility] Mean Cell Hemoglobin 32.9(H) 27.1 - 32.0 pg [facility] Mean Cell Hemoglobin Concentration 33.1 31.7 - 35.0 g/dL [facility] Platelet 166 145 - 357 x10(3)/mc L [facility] RDW Standard Deviation 47.1(H) 37.0 - 46.0 fL [facility] RDW coefficient of variation 13.0 11.5 - 14.1 % [facility] Mean Platelet Volume 9.0 7.6 - 12.9 fL [facility] NRBC% auto 0.0 % [facility] NRBC Absolute 0.000 0.000 - 0.000 x10(3)/mc L [facility] Blood 07/08/2023 11:5 6 AM EST 07/08/2023 12:02 PM EST Narrative Resulting Agency Comment Spec In Lab Minh Kraig Marquita TOBAR HEMATOLOGY ORDERABLE S [facility] [place] [address] * (ABNORMAL) Comprehensive metabolic panel (non-fasting) (07/08/2023 11:56 AM EST) Glucose 93 65 - 199 mg/dL [facility] Comment:Diabetes: >=200 mg/d L plus symptoms Blood Urea Nitrogen 19(H) 8 - 18 mg/dL [facility] Creatinine 0.81 0.70 - 1.20 mg/dL [facility] Sodium 142 135 - 145 mmol/L [facility] Potassium 3.8 3.5 - 5.0 mmol/L [facility] Comment: Please note: ??Patients with WBC >100,000 may have falsely elevated Potassium levels. ??For accurate Potassium quantification in these patients send serum separator tube (gold top) for subsequent determinations. ??Contact the Clinical Chemistry Laboratory if there are any questions. Chloride 104 98 - 107 mmol/L [facility] Carbon Dioxide 26 22 - 31 mmol/L [facility] Anion Gap 12 5 - 15 mmol/L [facility] Calcium 10.2 8.5 - 10.5 mg/dL [facility] Protein, Total 7.4 6.1 - 8.0 g/dL [facility] Albumin 4.1 3.2 - 5.2 g/dL [facility] Aspartate Aminotransferase 24 0 - 30 unit/L [facility] Alanine Aminotransferase 12 0 - 30 unit/L [facility] Alkaline Phosphatase 93 35 - 105 unit/L [facility] Bilirubin, Total 0.3 0.2 - 1.3 mg/dL [facility] Est Glomerular Filtration Rate 80 >=60 mL/min/1. 73 m?? [facility] Comment: This patient's estimated GFR [...] MD CHEMISTRY ORDERABLE S Performing Organization Address City/State/[facility] Co de Phone Number [facility] [place] [address] documented in this encounter Visit Diagnoses Diagnosis S/P TAVR (transcatheter aortic valve replacement) Severe aortic stenosis Aortic valve disorders documented in this encounter Care Teams Psychological Anthropologist Relationship Specialty Start Date End Date Magdalena Acosta MD [address] [place] [address] PCP - General Family Medicine 02/05/23 documented as of this encounter
--- OUTSIDE RECORDS SUMMARY | 2024-03-07 14:33 | XMS_ITS | Encounter Summary ---
Author Organization [facility] Address [facility] [place] [address] Care Team Providers Care Cell Inspector Name Role Phone Magdalena Acosta MD Primary Care Provider [phone] Encounter Details Date Type Department Care Team (Late st Contact Info) Description 07/29/2023 11:00 AM EST Office [place] [address] Magdalena Peralta MD [facility] [place] [address] Mixed connective tissue disease Social History Tobacco [...] 1:5120 speckled; VIC negative; Myositis panel with KILN CAR REPAIRER ab 149.1 (positive); Anti U1RNP IgG 119; [...] Patient was seen and discussed with Dr. Viarmontes. Magdalena Peralta MD Rheumatology Fellow Pager: [phone] * Kia Viramontes DO - 07/29/2023 11:00 AM EST ATTENDING ADDENDUM The patient's history was reviewed, and I interviewed and examined the patient with Dr. Peralta I agree with her summary, findings, and plan. documented in this encounter Plan of Treatment Upcoming Encounters Date Type Department Care Team (Late st Contact Info) Description 06/05/2024 11:30 AM EST Office [place] [address] Magdalena Peralta MD [facility] [place] [address] 03/01/2025 4:15 PM EDT Office Visit Dermatology at [address] [place] [address] Marek Bonilla MD [address] [place] [address], [place] [address] documented as of this encounter Results * [...] PFT FEV1/FVC Pre-BD Z-Score 0 COMPAS PFT [id number] Actual Pre-BD 2.41 % COMPAS PFT CYS48-83 Predicted 1.8 % COMPAS PFT NOE16-14 Pre-BD % of Predicted 134 % COMPAS PFT JYR89-41 Pre-BD Z-Score 0.81 COMPAS PFT DLCO Hb [...] tissue documented in this encounter Care Teams Cell Inspector Relationship Specialty Start Date End Date Magdalena Aocsta MD [address] [place] [address] PCP - General Family Medicine 02/05/23 documented as of this encounter
--- OUTSIDE RECORDS SUMMARY | 2024-03-07 14:33 | XMS_ITS | Encounter Summary ---
Author Organization [facility] [place] [address] Care Team Providers Care Supervisor Roving Department Name Role Phone Magdalena Acosta MD Primary Care Provider [phone] Encounter Details Date Type Department Care Team (Late st Contact Info) Description 07/08/2023 10:15 AM EST Office Visit Cardiology at [address] [phone] Severe aortic stenosis Social History Tobacco Use Types Packs/Day Years Used Date Smoking Tobacco: Never Smokeless Tobacco: Never Alcohol Use Standard Drinks/Week Comments No 0 (1 standard drink = 0.6 oz pur e alcohol) none [facility] Inpatient Questions Answer Date Recorded [...] 11:30 AM EST [place] [address] [facility] [place] [address] 03/01/2025 4:15 PM EDT Office Visit Dermatology at [place] [address] [place] [address] Marek Bonilla MD [address], [place] [address] documented as of this encounter Procedures Procedure [...] (Bezet) 449 ms MUSE SYSTEM Calculated P [place] 66 degrees MUSE SYSTEM Calculated R [place] 60 degrees MUSE SYSTEM Calculated T [place] 53 degrees MUSE SYSTEM INTERPRETATION Normal sinus rhythm Minimal voltage criteria for LVH, may be normal variant ( Sokolow-Orozco ) ST & T wave abnormality, consider lateral ischemia ??vs. repolarization abnormality from LVH Abnormal ECG When compared with ECG of 13-MAY-2023 09:22, Premature ventricular complexes are no longer Present Minimal criteria for Septal infarct are no longer Present Confirmed by Maxx Best ([id number]) on 07/09/2023 10:07:22 AM MUSE SYSTEM 07/08/2023 10:2 7 AM EST 07/09/2023 10:07 AM EST Brody Kaplan APRN ECG ORDERABLES [employer] documented in this encounter Visit Diagnoses Diagnosis Severe aortic stenosis Aortic valve disorders documented in this encounter Care Teams Supervisor Roving Department Relationship Specialty Start Date End Date Magdalena Acosta MD [address] [place] [address] PCP - General Family Medicine 02/05/23 documented as of this encounter
--- OUTSIDE RECORDS SUMMARY | 2024-03-07 14:33 | XMS_ITS | Encounter Summary ---
Author Organization [facility] [place] [address] Care Team Providers Care Design Specialist Name Role Phone Magdalena Acosta MD Primary Care Provider [phone] Reason for Visit * Reason Comments Coronary Artery Disease Hypertension Aortic Stenosis Encounter Details Date Type Department Care Team (Latest Contact Info) Description 07/20/2023 4:40 PM EST TH Visit (TeleHealth) Cardiology at [address] [address] Jay Maza PA [facility] [place] [address] HFrEF (heart failure with reduced ejection fraction); [...] lieu of an in person office visit. Golf Instructor: Antelmo Sharma MD ([facility]) Maria Luz Mejia MD ([facility] cards) Problem List: [...] fraction I35.0 Mild coronary artery disease by [facility] 11/09/2022 I25.10 Heart failure with [...] notable for coronary artery protection given low iyyuf-ou-yemgxxxg distance. There was no obstruction post Valve deployment, but the stent could not be removed safely, so it was deployed. 4.0 mm x 30mm in left main. She was loaded on brilinta aka ticagrelor. Immediately post valve deployment, chest compressions to circulate central epinephrine which was administered given her hypotension, low LVEF, and low cardiac reserve. Next, the patient was transferred to [facility] for pressor and inotropic support. Pressors weaned overnight. Cardiac indices by thermodilution remained greater than 3 with continued Milrinone 0.125 mcg/kg/min. EKG the next day with NSR with stable DE/QRS intervals. Hemoglobin 7.8 today from 8.5, likely [...] arms and wrists. Successful right transfemoral TAVR Qfjwj-ti-Gpneq with a 23 mm Lai 3 THV. [...] leads Confirmed by MD Harshil, Haris Bell ([id number]) on 05/10/2023 8:11:46 AM Cardiac Cath 11/09/2022 [...] in chart review and direct patient contact. [id number] 0-5min 3761DHL8 6-10min 3105JOC0 11-15min [id number] 16-20min x 7282CQI0 21-30min 3187ISW2 31-40min [id number] 40+ min Jay Maza PA-C Interventional Cardiology [facility] Pager [phone] documented in this encounter Plan of Treatment Upcoming Encounters Date Type Department Care Team (Late st Contact Info) Description 06/05/2024 11:30 AM EST Office [place] [address] Magdalena Peralta MD [facility] [place] [address] 03/01/2025 4:15 PM EDT Office Visit Dermatology at [place] [address] [facility] [place] [address] Marek Bonilla MD [address] [facility], [place] [address] documented as of this encounter Visit Diagnoses Diagnosis HFrEF (heart failure with reduced ejection fraction) Hypertension, unspecified type Aortic valve stenosis, etiology of cardiac valve disease unspecified documented in this encounter Care Teams Design Specialist Relationship Specialty Start Date End Date Magdalena Acosta MD [address] [place] [address] PCP - General Family Medicine 02/05/23 documented as of this encounter
--- OUTSIDE RECORDS SUMMARY | 2024-03-07 14:33 | XMS_ITS | Encounter Summary ---
Author Organization [facility] [place] [address] Care Team Providers Care Base Draw Operator Name Role Phone Magdalena Acosta MD Primary Care Provider [phone] Encounter Details Date Type Department Care Team (Late st Contact Info) Description 05/27/2023 Refill Cardiology at [address] [phone] Vero Marrero, RN Social History Tobacco Use Types Packs/Day Years Used Date Smoking Tobacco: Never Smokeless Tobacco: Never Alcohol Use Standard Drinks/Week Comments No 0 (1 standard drink = 0.6 oz pur e alcohol) none [facility] Inpatient Questions Answer Date Recorded Does [...] PM EDT TC to Nurse Sosa at [facility] to relay response from Jay Maza copied below. Nurse Sosa states they will send a new prescription to patient's preferred pharmacy and call the patient with the medication information. No print prescription sent to update med list. May 27, 2023 Jay Maza PA to Nv 05/27/23 2:44 PM OK to change ticagrelor to Clopidogrel. Now, she should be taking ticagrelor 90mg BID. When she switches, she can take ticagrelor, then the next morning, stop ticagrelor, instead take clopidogrel 300mg once, then after that 75mg once daily. Jay Marrero maple products supervisor [facility] [address] * Telephone Encounter - Vero Marrero RN - 05/27/2023 1:46 PM EDT VM received from triage nurse Sosa at [facility] stating patient was seen today by Dr. [...] more affordable option, if possible. Vero Marrero maple products supervisor [facility] [address] documented in this encounter Plan of Treatment Upcoming Encounters Date Type Department Care Team (Late st Contact Info) Description 06/05/2024 11:30 AM EST Office [place] [address] Magdalena Peralta MD [facility] [address] 03/01/2025 4:15 PM EDT Office Visit Dermatology at [place] [address] [place] [address] Marek Bonilla MD [address], [address] [place] [address] documented as of this encounter Visit Diagnoses Diagnosis Aortic valve stenosis, etiology of cardiac valve disease unspecified documented in this encounter Care Teams Base Draw Operator Relationship Specialty Start Date End Date Magdalena Acosta MD [address] [place] [address] PCP - General Family Medicine 02/05/23 documented as of this encounter
--- OUTSIDE RECORDS SUMMARY | 2024-03-07 14:33 | XMS_ITS | Encounter Summary ---
Author Organization [facility] Address [facility] [place] [address] Care Team Providers Care Computer Typesetter Keyliner Name Role Phone Magdalena Acosta MD Primary Care Provider [phone] Encounter Details Date Type Department Care Team [...] 11:30 AM EST Office [place] [address] Magdalena Peralta MD [facility] [place] [address] 03/01/2025 4:15 PM EDT Office Visit Dermatology at [place] [address] [facility] [place] [address] Marek Bonilla MD [address] [place] [address] RD, [place] [address] documented as of this encounter Visit Diagnoses Not on filedocumented in this encounter Care Teams Computer Typesetter Keyliner Relationship Specialty Start Date End Date Magdalena Acosta MD [address] [place] [address] PCP - General Family Medicine 02/05/23 documented as of this encounter
--- OUTSIDE RECORDS SUMMARY | 2024-03-07 14:34 | XMS_ITS | Encounter Summary ---
Author Organization [facility] Address [facility] [place] [address] Care Team Providers Care Warehouse Packaging Supervisor Name Role Phone Magdalena Acosta MD Primary Care Provider [phone] Encounter Details Date Type Department Care Team [...] 11:30 AM EST Office [place] [address] Magdalena Peralta MD [facility] [place] [address] 03/01/2025 4:15 PM EDT Office Visit Dermatology at [place] [address] [facility] [place] [phone] Marek Bonilla MD [address] [place] [address] RD, [place] [address] documented as of this encounter Visit Diagnoses Not on filedocumented in this encounter Care Teams Warehouse Packaging Supervisor Relationship Specialty Start Date End Date Magdalena Acosta MD [address] [place] [address] PCP - General Family Medicine 02/05/23 documented as of this encounter
--- OUTSIDE RECORDS SUMMARY | 2024-03-07 14:34 | XMS_ITS | Encounter Summary ---
Author Organization [facility] Address [facility] [place] [address] Care Team Providers Care Dynamo Tender Name Role Phone Magdalena Acosta MD Primary Care Provider [phone] Reason for Referral * Diagnostic Test (Routine) - Closed Specialty Diagnoses / Procedures Referred By Contac t Referred To Contact Cardiology Diagnoses S/P TAVR (transcatheter aortic valve replacement) Procedures Echocardiogram Transthoracic Vinod Juárez PA [facility] [place] [address] [facility] [place] [address] Referral ID Status Reason Start Date Expiration Date V isits Requested Visits Authorized [id number] Closed Specialty Service Requested 05/22/2023 05/21/2024 1 1 * Home Health Care (Routine) - Closed Specialty Diagnoses / Procedures Referred By Contac t Referred To Contact Diagnoses S/P TAVR (transcatheter aortic valve replacement) Alirio Hudson MD [facility] [place] [address] [facility] [address] [place] [address] Referral ID Status Reason Start Date Expiration Date V isits Requested Visits Authorized [id number] Closed Consult, Test & Treat 05/22/2023 11/18/2023 999 999 * Consultation (Routine) - Closed Specialty Diagnoses / Procedures Referred By Crispin maxwell Referred To Contact Cardiology Diagnoses S/P TAVR (transcatheter aortic valve replacement) Alirio Hudson MD [facility] [place] [address] Cardiac Rehab, [facility] [address] [place] [address] [place] [address] Referral ID Status Reason Start Date Expiration Date V isits Requested Visits Authorized [id number] Closed Consult, Test & Treat 05/22/2023 11/18/2023 36 36 * Diagnostic Test (Routine) - Closed Specialty Diagnoses / Procedures Referred By Crispin maxwell Referred To Contact Cardiology Diagnoses Aortic valve stenosis, etiology of cardiac valve disease unspecified Procedures Echocardiogram Transthoracic Transesophageal Echocardiogram (YUSRA) Radha Hollins MD [facility] [place] [address] [facility] [place] [address] Referral ID Status Reason Start Date Expiration Date V isits Requested Visits Authorized [id number] Closed Specialty Service Requested 05/11/2023 05/10/2024 1 1 Reason for Visit * Auth/Cert (Routine) Specialty Diagnoses / Procedures Referred By Crispin maxwell Referred To Contact Diagnoses Symptomatic severe aortic stenosis with low ejection fraction NSTEMI, CHF Enrique Chua MD [facility] [place] [address] [facility] Referral ID Status Reason Start Date Expiration Date Visits Re quested Visits Authorized [id number] 1 1 Encounter Details Date Type Department Care Team (Latest Contact Info) Description 05/08/2023 9:14 AM EDT - 05/22/2023 10:46 AM EDT Hospital Encounter Heart and Vascular Unit Level 4 [place] [address] Enrique Chua MD [facility] [place] [address] Juan Luis Gonzalez MD [facility] [place] [address] Radha Hollins MD [facility] [place] [address] Alirio Hudson MD [facility] [place] [address] S/P TAVR (transcatheter aortic valve replacement) (Primary Dx); Aortic valve stenosis, etiology of cardiac valve disease unspecified; Symptomatic severe aortic stenosis with low ejection fraction; Heart failure with reduced ejection fraction due to heart valve disease; Mild coronary artery disease by [facility] 11/09/2022; Mixed connective tissue disease; Neck pain; [...] Patient Age: 67 y.o. Birthdate: 1955 Language: Gabonese Race: White Ethnicity: Not nor Admit Date: 05/08/2023 Discharge Date: 05/22/2023 Attending Physician: Alirio Hudson MD Follow-up Recommendations for Providers: Please continue routine management of cardiovascular risk factors including blood pressure, lipids,glucose, etc. Please note any medication changes. Patient to follow up with PCP, Magdalena Acosta MD, or Primary Clinical Account Liaison, Maria Luz Mejia MD, in ~ 7-10 days. Patient to follow up with Project Associate, Dr. Antelmo Sharma, in 2 weeks with an EKG, Echo, CBC, and CMP. Patient to follow up with Nephrology, their office to arrange. Lblf-Esebmu-cl interval: After initial 30 day follow-up appointment , all TAVR patients will follow-up again in one year with an echo. 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 Secondary Diagnoses: Active Hospital Problems Diagnosis S/P TAVR (transcatheter aortic valve replacement) Cardiogenic shock Symptomatic severe aortic stenosis with low ejection fraction Mild coronary artery disease by [facility] 11/09/2022 Heart failure with reduced [...] Tube Placement Right 05/18/2023 Laure Ricks PA [facility] INTERVENTIONL RAD PRG CATH PLMT LEFT HEART CATH & ARTS W/INJ & ANGIO IMG S&I N/A 11/09/2022 CORONARY ANGIOGRAPHY; W [facility],POSSIBLE PCI (WRVU 5.6) performed by Mario Alberto Escobedo MD at [facility] CATH LABS PRG COMBINED RIGHT & LEFT HEART CATH W/INJ L VENTRICULOGRAPHY, IMG S&I N/A 05/12/2023 COMBINED RIGHT & LEFT HEART CATH,INC INJ FOR L VENTRICULOGRAPHY (WRVU 5.99) performed by Antelmo Sharma MD at [facility] CATH LABS PRO AORTOPLAS FOR SUPRAVALV STEN N/A 09/21/2016 @AORTOPLASTY FOR SUPRAVALVULAR STENOSIS (WRVU 29.33) performed by Alirio Hudson MD at [facility] MAIN OR PRO REPLACE AORTIC VALVE (TAVR/FEDERICO)PERC FEMORAL ARTERY APPROACH 05/12/2023 @TRANSCATHETER AORTIC VALVE REPLACEMENT (TAVR), PERCUTANEOUS FEMORAL (WRVU 22.47) performed by Alirio Hudson MD at [facility] CATH LABS PRO REPLACEMENT PROSTHETIC AORTIC VALVE OPEN W CARDIOPULMONARY BYPASS HOMOGRF/STENT N/A 09/21/2016 @REPLACE AORTIC VALVE, OPEN, W\CPB, W\PROSTHETIC VALVE (WRVU 41.32) performed by Alirio Hudson MD at [facility] MAIN OR Prior To Admission [...] Major Procedures/Operations: 05/12/23: Successful right transfemoral TAVR Upzhv-my-Lrnwc with a 23 mm Lai 3 THV. Left coronary protection with left main MINNA. Hospital Course: #Severe prosthetic s/p valve in valve TF TAVR #Low coronary heights s/p left main stent for coronary protection #Type 2 NSTEMI, present on arrival, resolved #Acute decompensated HFrEF #Cardiogenic shock #EVANS / Cardiorenal syndrome Purnima Thacker was admitted to [facility] on 05/08/2023 via the Cardiology Service [...] TAVR and she was brought to the wastewater analyst lab analyst the following morning where Drs. Alirio Hudson [...] if you have questions. Please call your Project Associate's office if you have any discharge or drainage from your procedural sites. Your Project Associate, Dr. Antelmo Sharma and/or the Sales And Service Representative may be reached at . Antibiotic prophylaxis: You will need to take antibiotics prior to many invasive tests and treatments, such as dental cleaning, which should be done every 6 months. Your primary care physician or your dentist can prescribe this medication. Please refer to the card with the [place] [employer] Guidelines for more information. You have been provided with a copy of this card. Please refer to the [place] [employer] Guidelines for more information. Good [...] friends, go to a movie, go to restorationism, etc. Heavy activities: No hunting, skiing, jogging, [...] should resume a low fat, low cholesterol, [place] [employer] Diet Driving: No restrictions. Shower/Bath: You may shower daily. No baths, soaking, or swimming for the first week. Wound care: Wash the sites daily with soap and rinse well, pat dry. Assess for any signs of infection such as increased redness, pain, warmth or drainage. Please call your hr advisor's office if you have any discharge or drainage from your procedural sites. If there is a lot of swelling, apply mamta wraps during the day and remove at bedtime. Elevate your legs when you are sitting. Home oxygen therapy: N/A Follow up appointments: Please schedule a follow-up appointment with your PCP, Magdalena Acosta MD, or Primary Clinical Account Liaison in ~ 7-10 days. You have a follow-up appointment with your Project Associate, Dr. Antelmo Sharma, in 2 weeks with an EKG, Echo, and labs prior to your appointment. You will need follow-up with Nephrology, their office will arrange. Qbnq-Kaofvk-zo interval: After initial 30 day follow-up appointment , all TAVR patients will follow-up again in one year with an echo. Cardiac Rehabilitation: Purnima Thacker was seen today regarding participation in the outpatient Phase 2 Cardiac Rehabilitation at [facility]. The patient agrees to a referral to this program. The referral will be sent at discharge and the patient should be contacted by the Program within 1- 2 weeks from discharge. Future Appointments and Orders Future Appointments and Orders Future Appointments Provider Department Dept Phone 07/29/2023 11:00 AM Magdalena Peralta MD Rheumatology at [facility] [place] Arrive at: Adult Manager Area [phone] 02/11/2024 2:00 PM Marek Bonilla MD Dermatology at [place] Arrive at: [facility] [address] [phone] Future Orders Complete By Expires Type and Screen Future Surgery, [facility] [place] SAME DAY PROGRAM ONLY) [[id number] Custom] 05/11/2023 Process Instructions: This test is intended ONLY for patients with upcoming surgery for testing prior to the day of surgery obtained through the same day program (4V or SDP). For ALL OTHER PATIENTS, order a Type and Screen ([id number]) This order includes the physician order for an ABO Recheck if requested by the Blood Bank. Scheduling Instructions: Comments: Questions: Date of surgery: CBC (with Diff) [[id number] Custom] 06/05/2023 12/05/2023 Process Instructions: INCLUDES: WBC, RBC, Hgb, Hct, Platelets, RBC Indices and Differential Scheduling Instructions: Comments: Questions: Comprehensive metabolic panel (non-fasting) [LAB17 Custom] 06/05/2023 08/20/2023 Process Instructions: INCLUDES: Calcium, T Protein, Albumin, AST, ALT, Alk Phos, T Bili, BUN, Creat, GFR, Glucose, Lytes. Scheduling Instructions: Comments: Questions: Echocardiogram Transthoracic [12151 CPT(R)] 06/05/2023 12/05/2023 Process Instructions: Scheduling Instructions: Questions: Where will study be performed?: [facility] [place] Clinics Does the patient have Congenital Heart Disease?: Does patient require sedation?: GA rationale: EKG 12 Lead [90082 CPT(R)] 06/05/2023 12/05/2023 Process Instructions: Scheduling Instructions: Questions: Which location will this be performed?: [place] Is a rhythm strip needed?: No [facility] Devices [EQ161 Custom] As directed Process Instructions: Scheduling Instructions: Questions: Device Needed: WALKER (E0143) Patient Height (cm): 154.9 cm (5' 0.98) Patient Weight: 75.4 kg (166 lb 3.2 oz) Diagnosis: Unsteady gait when walking Referral to Cardiac Rehab [GAC391 Custom] As directed Process Instructions: If no progress note charted, please enter Clinical details in comments. Scheduling Instructions: Questions: My question or request is: s/p TAVR. Cardiac rehab at [facility]. Referral to Home Health [REF34 Custom] As directed Process Instructions: If no progress note charted, please enter Clinical details in comments. Scheduling Instructions: Comments: DOCUMENTATION FOR VNA SERVICES PATIENT'S LOCATION: Purnima Thacker [address] [place] [phone] (home) Director Revenue's Name: Irineo and brother Raymond In discussion with the attending physician, it is certified that this patient is under his/her careand that MD, or an GEOGRAPHY FACULTY MEMBER, BEAM DOFFER, or PA who is working directly with him/her, had a hoom-lz-nifb encounter that meets the physician lnne-dr-fxzt encounter requirements with this patient on 05/22/2023. [...] for managing ADLs. HOME HEALTH CARE AGENCY: [facility] [place] [address] PHONE: [phone] FAX: [phone] Start of care: Ideally 24-48 hours after [...] Magdalena Acosta MD [address] / [facility] [phone] All VNA agencies which cover the area of patient's residence have been reviewed, either verbally joao writing, and patient has chosen the home health care agency noted. Questions: Disciplines Requested: Physical Therapy Occupational Therapy Discharge References/Attachments None Arrangements for VNA/home care: As above. (delete if no VNA) Signed: EKATERINA NAVARRETE [facility] Section of Cardiac Surgery Date: 05/22/2023 CC: Magdalena Acosta MD [place] Alberto MD [address] [place] [address] documented in this encounter Discharge Instructions * Patient Instructions* Vinod Juárez PA - 05/22/2023 9:32 AM EDT TAVR Discharge Instructions: Call your doctor if: You have a fever of greater than 101 degrees, shaking chills, if you develop redness or drainage from your procedure sites, or if you have questions. Please call your Project Associate's office if you have any discharge or drainage from your procedural sites. Your Project Associate, Dr. Antelmo Sharma and/or the Sales And Service Representative may be reached at . Antibiotic prophylaxis: You will need to take antibiotics prior to many invasive tests and treatments, such as dental cleaning, which should be done every 6 months. Your primary care physician or your dentist can prescribe this medication. Please refer to the card with the [place] [employer] Guidelines for more information. You have been provided with a copy of this card. Please refer to the [place] [employer] Guidelines for more information. Good [...] friends, go to a movie, go to restorationism, etc. Heavy activities: No hunting, skiing, jogging, [...] should resume a low fat, low cholesterol, [place] [employer] Diet Driving: No restrictions. Shower/Bath: You may shower daily. No baths, soaking, or swimming for the first week. Wound care: Wash the sites daily with soap and rinse well, pat dry. Assess for any signs of infection such as increased redness, pain, warmth or drainage. Please call your hr advisor's office if you have any discharge or drainage from your procedural sites. If there is a lot of swelling, apply mamta wraps during the day and remove at bedtime. Elevate your legs when you are sitting. Home oxygen therapy: N/A Follow up appointments: Please schedule a follow-up appointment with your PCP, Magdalena Acosta MD, or Primary Clinical Account Liaison in ~ 7-10 days. You have a follow-up appointment with your Project Associate, Dr. Antelmo Sharma, in 2 weeks with an EKG, Echo, and labs prior to your appointment. You will need follow-up with Nephrology, their office will arrange. Buqc-Zlwvvm-xa interval: After initial 30 day follow-up appointment , all TAVR patients will follow-up again in one year with an echo. Cardiac Rehabilitation: Purnima Thacker was seen today regarding participation in the outpatient Phase 2 Cardiac Rehabilitation at [facility]. The patient agrees to a referral [...] Lancet 33 gauge Misc USE DAILY 01/03/2022 furosemide (Lasix) 20 mg tablet Take 1 [...] ins ( tef) Haven Ba, PT Pager: [phone] Physical Therapy Inpatient Rehabilitation Department * Nico [...] 0600 and on the weekends please page [phone]. * Jory Paniagua - 05/20/2023 3:52 PM [...] vomiting Last Bowel Movement: 05/20/23 Jory Paniagua Teleradiologist * Tong Mike, OT - 05/20/2023 3:16 [...] Tube Placement Right 05/18/2023 Laure Ricks PA [facility] INTERVENTIONL RAD PRG CATH PLMT LEFT HEART CATH & ARTS W/INJ & ANGIO IMG S&I N/A 11/09/2022 CORONARY ANGIOGRAPHY; W [facility],POSSIBLE PCI (WRVU 5.6) performed by Mario Alberto Escobedo MD at [facility] CATH LABS PRG COMBINED RIGHT & LEFT HEART CATH W/INJ L VENTRICULOGRAPHY, IMG S&I N/A 05/12/2023 COMBINED RIGHT & LEFT HEART CATH,INC INJ FOR L VENTRICULOGRAPHY (WRVU 5.99) performed by Antelmo Sharma MD at [facility] CATH LABS PRO AORTOPLAS FOR SUPRAVALV STEN N/A 09/21/2016 @AORTOPLASTY FOR SUPRAVALVULAR STENOSIS (WRVU 29.33) performed by Alirio Hudson MD at [facility] MAIN OR PRO REPLACE AORTIC VALVE (TAVR/FEDERICO)PERC FEMORAL ARTERY APPROACH 05/12/2023 @TRANSCATHETER AORTIC VALVE REPLACEMENT (TAVR), PERCUTANEOUS FEMORAL (WRVU 22.47) performed by Alirio Hudson MD at [facility] CATH LABS PRO REPLACEMENT PROSTHETIC AORTIC VALVE OPEN W CARDIOPULMONARY BYPASS HOMOGRF/STENT N/A 09/21/2016 @REPLACE AORTIC VALVE, OPEN, W\CPB, W\PROSTHETIC VALVE (WRVU 41.32) performed by Alirio Hudson MD at [facility] MAIN OR Social History: Patient lives alone. Home Setup: Pt lives on one level with tub shower and three steps to enter. DME: none used NETWORK OPERATIONS ANALYST Baseline ADL/Mobility: Independent with ADLs and IADLs. [...] awareness: WFL Vision & Perception: corrective lenses evp global multimedia sales Communication: WFL Range of motion, strength, coordination: [...] Discharge Disposition (OT): swing bed rehabilitation facility, custodial facility(vs home with support for IADLs) Other [...] Discharge planning. Total Minutes, Occupational Therapy: 28 (7114-4722) OT Evaluation Code Rationale: Diagnosis & Pertinent Co-Morbidities affecting Plan of Care: see PMHx Occupational Profile & Client History: Brief Expanded Extensive x Assessment of Occupational Performance: 1-3 performance deficits 3-5 performance deficits x 5 + performance deficits Clinical Decision Making: Low Moderate High x Clinical decision making of moderate complexity using standardized patient assessment instrument and measurable assessment of functional outcome. Pager: [phone] TONG MIKE OT 05/20/2023 Occupational Therapy Rehabilitation [...] 0600 and on the weekends please page [phone]. * Rylie Rodriguez MD - 05/19/2023 3:59 [...] and plan. Cynthia Blackburn MD Nephrology Pager: [phone] * Diana Espino - 05/19/2023 1:49 PM EDT Food And Beverage Cashier Encounter Note Patient Name: Purnima Thacker : [id number] MR#: [id number] Admit Date: 05/08/2023 9:14 AM Hospital Day [...] returning home alone. Anticipated Discharge Disposition (PT): custodial facility, swing bed rehabilitation facility Consult Recommendations: [...] as stated. Total Minutes, Physical Therapy: 38 (6673-4651) Henrik Navarrete, NETWORK OPERATIONS ANALYST Pager: [phone] Physical Therapy Inpatient Rehabilitation Department * Nico [...] 0600 and on the weekends please page [phone]. * Laure Ricks PA - 05/19/2023 7:56 [...] Ricks PA-C Interventional Radiology IR Team Pager [phone] * Consuelo Espinoza RN - 05/18/2023 4:13 PM EDT ANGIO NURSING DATABASE Name: Purnima Tahcker Date of : 1955 AGE: 67 y.o. Address: [address] [place] [phone] (home) Mobile: No relevant phone numbers on [...] fraction I35.0 Mild coronary artery disease by [facility] 11/09/2022 I25.10 Heart failure with [...] and plan. Cynthia Blackburn MD Nephrology Pager: [phone] * Magdalena Puri, CIGARETTE CATCHER - 05/18/2023 10:51 AM EDT Images from the original note were not included. Formerly [facility] [place] [address] STRUCTURAL HEART DISEASE CONSULTATION NOTE PRIMARY CARE [...] stenosis. She is now status post TAVR Govbe-zo-Dewvk with a 23 mm Lai 3 THV 05/12/[address] Sharma. Preliminary findings: Successful right transfemoral TAVR Birpa-fc-Wwyky with a 23 mm Lai 3 THV. [...] perforation. Interval Events: - 05/12 Transferred to [facility] post- TAVR for pressor/inotropic support (Levo, vaso, [...] ejection fraction Mild coronary artery disease by [facility] 11/09/2022 Heart failure with reduced [...] tablet 2 tablet 2 tablet Oral Daily VictorMara ernandez APRN 2 tablet at 05/16/232111 bisacodyL (Dulcolax) suppository 10 mg 10 mg Rectal Daily PRN MaggieMara ernandez APRN melatonin tablet 6 mg 6 mg Oral Nightly PRN VictorMara ernandez APRN 6 mg at 05/17/232024 influenza [...] stenosis. She is now status post TAVR Irsnd-eh-Lfyaw with a 23 mm Lai 3 THV [...] Magdalena Puri APRN Structural Heart Team Pager [phone] Team Office Please see addendum by Dr. Sharma for final plan and recommendations Associated attestation - Antelmo Sharma MD - 05/19/2023 10:52 PM EDT I have reviewed Magdalena Puri APRN's above history and I agree with the details as written. The assessment and plan were formulated in discussion with me and I agree with them as documented. Antelmo Sharma MD Pager [phone] * Nico Palacios PA - 05/18/2023 8:13 [...] 0600 and on the weekends please page [phone]. * Loli Hernandez, PT - 05/17/2023 5:27 [...] returning home alone. Anticipated Discharge Disposition (PT): custodial facility, swing bed rehabilitation facility Consult Recommendations: [...] plan as stated. Time IN / OUT: 2530-8146 Total Minutes, Physical Therapy: 54 Billing Code: te-sx2, te-f, gait LOLI HERNANDEZ, PT Pager: [phone] Physical Therapy Inpatient Rehabilitation Department * Cynthia [...] Well controlled. Cynthia Blackburn MD Nephrology Pager: [phone] * Mara Serrano, ANURAG - 05/17/2023 8:26 [...] 0600 and on the weekends please page [phone]. * Guerda Del Valle - 05/16/2023 10:44 AM EDT Nutrition Services Note - Low Nutrition Acuity Purnima M Kirstie is a 67 y.o. female Reason for intervention: hospital day 9 Nutrition Plan: Continue diet order Encourage good PO Josephine noted Added special serve: open containers Monitor weight Patient scheduled for a hospital day 9 nutrition evaluation. Instrument Installer met with pt at bedside. Pt reports that her appetite and PO has much improved since admission. Denies nausea/vomiting or trouble chewing/swallowing. Instrument Installer provided snack list but pt not interested in adding snacks at this time. Her only concern was that she is worried that she will eat too much which will cause too much pressure in her stomach. Instrument Installer assured pt and suggested eating smaller but [...] Last Bowel Movement: 05/10/23 Guerda C Moravek Teleradiologist * Vinod Juárez PA - 05/16/2023 10:19 [...] 0600 and on the weekends please page [phone]. * Michael Jeffers MD - 05/16/2023 8:11 AM EDT Images from the original note were not included. Hypertension-Nephrology Inpatient Follow-up Purnima Thacker [id number] 1955 ID: 67 y.o. old female seen [...] IRONSAT 12 (L) 05/16/2023 SFOLATE >20.0 07/03/2022 [id number] 07/03/2022 Lab Results Component Value Date ALBUMIN 3.6 05/14/2023 ALBUMIN 3.0 (L) 05/13/2023 ALBUMIN 3.5 05/12/2023 Assessment & Plan: Purnima Thacekr is a 67 y.o. female admitted in [...] Dr. Ayoub. Please contact me at phone: [phone] or pager: [phone] with any questions. Michael Jeffers MD Nephrology [...] -Nephrology consulted, labs and renal US ordered -Talpa removed, ambulated around the unit -bilateral pleural [...] 0600 and on the weekends please page [phone]. * Hortencia Cody MD - 05/15/2023 2:07 [...] not included. Hypertension-Nephrology Inpatient Follow-up Purnima Thacker [id number] 1955 ID: 67 y.o. old female seen [...] HGB 7.8 (L) 05/13/2023 SFOLATE >20.0 07/03/2022 [id number] 07/03/2022 Lab Results Component Value Date [...] Dr. Ayoub. Please contact me at phone: [phone] or pager: [phone] with any questions. Michael Jeffers MD Nephrology [...] last 720 hours. T/L/D Art ETT [facility] [place] ASSESSMENT, MANAGEMENT, and DECISION MAKIN y.o. female [...] outlined inthis evaluation. HAVEN BA, PT Pager: [phone] Physical Therapy Inpatient Rehabilitation Department Time IN / OUT: 3593-7449 Total time: Total Minutes, Physical Therapy: 30 [...] 0600 and on the weekends please page [phone]. * Antelmo Sharma MD - 05/14/2023 7:56 AM EDT Images from the original note were not included. [facility] [place] [address] STRUCTURAL HEART DISEASE CONSULTATION NOTE PRIMARY CARE [...] stenosis. She is now status post TAVR Eolhe-pi-Adsgu with a 23 mm Lai 3 THV 05/12/[address] Sharma. Preliminary findings: Successful right transfemoral TAVR Iyxem-ew-Mppwd with a 23 mm Lai 3 THV. [...] perforation. Interval Events: - 05/12 Transferred to [facility] post- TAVR for pressor/inotropic support (Levo, vaso, [...] ejection fraction Mild coronary artery disease by [facility] 11/09/2022 Heart failure with reduced [...] stenosis. She is now status post TAVR Hcmid-gj-Kkrjz with a 23 mm Lai 3 THV [...] Brody Kaplan APRN Structural Heart Team Pager [phone] Team Office Please see addendum by Dr. [...] exposure. Nephrology consultationtoday. Antelmo Sharma MD Pager [phone] * Antelmo Cardenas RN - 05/14/2023 5:18 AM EDT Pt AOx4, complaining of mild/moderate generalized pain (states her Meloxicam is effective at home) currently refusing prn oxycodone. NAEON, hemodynamically stable on Milrinone, Maps >65, ST in ane006's down to NSR with frequent multifocal PVC's. [...] the original note were not included. Formerly [facility] [address] [place], [place] [address] STRUCTURAL HEART DISEASE PROGRESS NOTE PRIMARY CARE [...] stenosis. She is now status post TAVR Iusln-qk-Pqfoy with a 23 mm Lai 3 THV 05/12/[address] Sharma. Preliminary findings: Successful right transfemoral TAVR Xdgvp-mr-Klqwa with a 23 mm Lai 3 THV. [...] ejection fraction Mild coronary artery disease by [facility] 11/09/2022 Heart failure with reduced [...] stenosis. She is now status post TAVR Islzp-yk-Uoked with a 23 mm Lai 3 THV [...] Brody Kaplan APRN Structural Heart Team Pager [phone] Team Office Please see addendum by Dr. [...] DAPT moving forward. Antelmo Sharma MD Pager [phone] * Bonita Miguel PA - 05/13/2023 8:30 AM EDT Cardiac Surgery Progress Note Purnima Thacker is a 67 y.o. 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 PMH of s/p tissue AVR (2017), mixed connective tissue disease HTN, HLD, NICOLAS, diverticulosis, rosacea, essential tremor, and depression. 24h Events: From wastewater analyst lab analyst for above procedure Extubated at ~1600 to [...] soft b/l, no evidence of hematoma. Tubes/Lines/Drains: Talpa, LUKAS, A-line, Art, ROSAURA Assessment/Plan: 67 y.o. [...] 0600 and on the weekends please page [phone]. * Onelia Schwartz MD - 05/12/2023 1:44 [...] ejection fraction Mild coronary artery disease by [facility] 11/09/2022 Heart failure with reduced [...] FiO2 weaned to 40%. 1105: ABG 7.34/42/73/22 6816-5244: SBT performed and passed on these settings [...] PCP: Magdalena Acosta MD PCP phone number: [phone] Date of Admission: 05/08/2023 ( Hospital Day [...] 1447 PHART -- 7.34* 7.34* -- -- CRG2MSO -- 30* 30* -- -- PO2ART -- 72* 81* -- -- HWJ6JHN -- 16.0* 15.7* -- -- LACTATEVEN 2.4* 2.7* 2.7* 4.8* 2.9* VBG (Venous Blood Gas) Recent Labs 05/12/23 0705/12/2331705/12/2310505/11/23193905/11/23 144 LACTATEVEN 2.4* 2.7* 2.7* 4.8* 2.9* Mixed Venous Sat Recent Labs 05/12/23 0508 05/12/23 0321 05/12/23 0114 05/12/23 0030 [id number] 30.7 32.7 37.3 25.1 Objective: Vitals Last [...] who have questions please contact the health dog day care attendant that requested your imaging first. Cardiac for [...] who have questions please contact the health dog day care attendant that requested your imaging first. Angiogram Abdomen [...] who have questions please contact the health dog day care attendant that requested your imaging first. Chest One [...] who have questions please contact the health dog day care attendant that requested your imaging first. Chest One [...] who have questions please contact the health dog day care attendant that requested your imaging first. Assessment & [...] and inotrope. She is planned for a vsvuo-kn-qzvrl TAVR this morning, which should hopefully improve [...] MD, FACP, FACC Section of Cardiovascular Medicine [facility] Registered Physical Therapistgauge and weigh machine adjuster [facility] * Noreen Deutsch RN - 05/12/2023 [...] ejection fraction Mild coronary artery disease by [facility] 11/09/2022 Heart failure with reduced [...] 05/11/2023 4:11 PM EDT Reported off to RURAL ROUTE MAIL CARRIER and pt transferred over in the bed for higher level of care. * Antelmo Sharma MD - 05/11/2023 9:45 AM EDT Images from the original note were not included. Formerly [facility] [place] [place] [address] STRUCTURAL HEART DISEASE CONSULTATION NOTE PRIMARY CARE [...] who had been referred for possible TAVR rexgb-ub-smzoy evaluation. Her primary symptoms are of dyspnea [...] [facility]. 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 She states that, [...] ejection fraction Mild coronary artery disease by [facility] 11/09/2022 Heart failure with reduced [...] hour(s)) Lactate, whole blood, send to lab ([facility] [place] Result Value Ref Range Lactate WB 3.1 (H) 0.5 - 2.2 mmol/L Heparin (unfractionated) Level Result Value Ref Range Heparin UFH Level 0.46 IU/mL Lactate, whole blood, send to lab ([facility] [place]) Result Value Ref Range Lactate WB 1.8 [...] leads Confirmed by MD Harshil, Enrique Bell ([id number]) on 05/10/2023 8:11:46 AM Cardiac Cath 11/09/2022 [...] to decompensating HFrEF, she was transferred to [facility] this afternoon for further management. TAVR CT imaging support for adequate ileofemoral access. Given her acute deterioration today, will planfor RTF TAVR on 05/12/2023. Brody Kaplan APRN Structural Heart Disease Pager [phone] Please see addendum by Dr. Sharma for [...] signed and dated. Antelmo Sharma MD Pager [phone] * Harini Lance MD - 05/11/2023 6:06 AM EDT Images from the original note were not included. Cardiology Progress Note Patient info: Name: Purnima Thacker : 1955 PCP: Magdalena Acosta MD PCP phone number: [phone] Date of Admission: 05/08/2023 ( Hospital Day [...] who have questions please contact the health dog day care attendant that requested your imaging first. : 05/08 [...] 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) Mild coronary artery disease by [facility] 11/09/2022 Hyperlipidemia, unspecified NICOLAS (obstructive [...] PCP: Magdalena Acosta MD PCP phone number: [phone] Date of Admission: 05/08/2023 ( Hospital Day [...] 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) Mild coronary artery disease by [facility] 11/09/2022 Hyperlipidemia, unspecified NICOLAS (obstructive [...] PCP: Magdalena Acosta MD PCP phone number: [phone] Date of Admission: 05/08/2023 ( Hospital Day [...] Gas) No results found for: PHART, PO2ART, CZS1RDG, CGN3KIO Microbiology: Microbiology Results (Last 30 days) No [...] PPx: Diet: Daily Healthy Menu Choices/Cardiac diet ([facility] [place]iet) Lines: Peripheral IV Line - Single Lumen [...] 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) Mild coronary artery disease by [facility] 11/09/2022 Hyperlipidemia, unspecified NICOLAS (obstructive [...] fraction I35.0 Mild coronary artery disease by [facility] 11/09/2022 I25.10 Heart failure with reduced ejection fraction due to heart valve disease I50.20, I38 Cardiogenic shock R57.0 S/P TAVR (transcatheter aortic valve replacement) Z95.2 Past Medical History: Diagnosis Date Anemia Past Surgical History: Procedure Laterality Date PRG CATH [facility] LEFT HEART CATH & ARTS W/INJ & ANGIO IMG S&I N/A 11/09/2022 CORONARY ANGIOGRAPHY; W [facility],POSSIBLE PCI (WRVU 5.6) performed by Mario Alberto Escobedo MD at [facility] CATH LABS PRO AORTOPLAS FOR SUPRAVALV STEN N/A 09/21/2016 @AORTOPLASTY FOR SUPRAVALVULAR STENOSIS (WRVU 29.33) performed by Alirio Hudson MD at [facility] MAIN OR PRO REPLACEMENT PROSTHETIC AORTIC VALVE OPEN W CARDIOPULMONARY BYPASS HOMOGRF/STENT N/A 09/21/2016 @REPLACE AORTIC VALVE, OPEN, W\CPB, W\PROSTHETIC VALVE (WRVU 41.32) performed by Alirio Hudson MD at [facility] MAIN OR Social History and [...] fraction I35.0 Mild coronary artery disease by [facility] 11/09/2022 I25.10 Heart failure with reduced ejection fraction due to heart valve disease I50.20, I38 Cardiogenic shock R57.0 S/P TAVR (transcatheter aortic valve replacement) Z95.2 Past Medical History: Diagnosis Date Anemia Past Surgical History: Procedure Laterality Date PRG CATH [facility] LEFT HEART CATH & ARTS W/INJ & ANGIO IMG S&I N/A 11/09/2022 CORONARY ANGIOGRAPHY; W [facility],POSSIBLE PCI (WRVU 5.6) performed by Mario Alberto Escobedo MD at [facility] CATH LABS PRO AORTOPLAS FOR SUPRAVALV STEN N/A 09/21/2016 @AORTOPLASTY FOR SUPRAVALVULAR STENOSIS (WRVU 29.33) performed by Alirio Hudson MD at [facility] MAIN OR PRO REPLACEMENT PROSTHETIC AORTIC VALVE OPEN W CARDIOPULMONARY BYPASS HOMOGRF/STENT N/A 09/21/2016 @REPLACE AORTIC VALVE, OPEN, W\CPB, W\PROSTHETIC VALVE (WRVU 41.32) performed by Alirio Hudson MD at [facility] MAIN OR Social History and [...] days, which prompted her to present to [employer] [facility]. She also endorses some intermittent retrosternal chest pain with exertion.She endorses some dizziness with exertion, but has not gotten faint or passed out. At [facility] she was noted to be afebrile, blood pressure 105/64, HR 120s, satting 95% on 2L NC. Labs from [facility] are below, of note she had elevated [...] 89/59, which prompted the transfer to us. [facility] labs: CBC - Hgb 10.5 CMP - Cr 1.1 BNP 92905 HsTrop 1358 Lactate 1.6 D-dimer 1183 Interval History Patient was admitted to [facility] due to concern on low BP iso [...] Klaudia Reid MD Internal Medicine PGY-1 Pager [phone], M1-S1 Service Associated attestation - Juan Luis Gonzalez MD - 05/08/2023 10:00 PM EDT Cardiology Attending Addendum Active Hospital Problems Diagnosis Symptomatic severe aortic stenosis with low ejection fraction Heart failure with reduced ejection fraction due to heart valve disease Mild coronary artery disease by [facility] 11/09/2022 Hyperlipidemia, unspecified History of [...] PCP: Magdalena Acosta MD PCP phone number: [phone] Date of Admission: 05/08/2023 ( Hospital Day 0 days ) Attending:Enrique Chua MD ID: Purnima Thacker is a 67 y.o. female w/ PMH of s/p bioprosthetic AVR in 2016 with recent concern for severe restenosis, HTN, HLD, mixed connective tissue disease, who presents in transfer from [facility] with worsening BONILLA and weight gain concerning for acute congestive heart failure and symptomatic . HPI: Purniam reports that over the past several months to years she has noticed dyspnea on exertion, progressing to the point where she cannot walk short distances on flat ground to her mailbox without getting significantly short of breath. This has acutely worsened in the past four days, which promptedher to present to [facility]. She also endorses some intermittent retrosternal chest pain with exertion. She endorses some dizziness with exertion, but has not gotten faint or passed out. At [facility] she was noted to be afebrile, blood pressure 105/64, HR 120s, satting 95% on 2L NC. Labs from [facility] are below, of note she had elevated [...] 89/59, which prompted the transfer to us. [facility] labs: CBC - Hgb 10.5 CMP - Cr 1.1 BNP 04633 HsTrop 1358 Lactate 1.6 D-dimer 1183 Vasoactive [...] tissue disease, who presents in transfer [facility] BONILLA and weight gain concerning for [...] #Routine Diet: Daily Healthy Menu Choices/Cardiac diet ([facility] [place]iet) DVT Prophylaxis: heparin gtt GI Prophylaxis: none [...] to the planned procedure. Hand Hygiene: The tire bagger did perform hand hygiene prior to arterial [...] Successful arterial line placement. Crispin Timmons MD Sales And Service Representative Associated attestation - Onelia Schwartz MD - [...] (flow was non-pulsatile) and appearance of blood. Talpa-Marily catheter was placed and locked at 55 [...] discharge to home with family/friend support and [facility], pt will also have FWW delivered to her prior to her d/c. Needs for Transition of Care: Plan for discharge is: Home w/ Services Outpatient Agency/Support Group Needs: Homecare agency Home Health Services: Physical Therapy, Occupational Therapy Agency Referrals & Follow-up Care: Contact information for follow-up Home [facility] H[facility], [place] [address] [place] [address] Cardiac Rehab, [facility] [address] [place] [address] Home Health & Hospice, [place] [address] [place] [address] Transportation: family or friend will provide *Brother [...] Type: *No Product type* / Secondary Insurance: [employer] [facility] Prescription Coverage: Yes This plan was formulated with input from patient, family (please identify family/friend involved ifapplicable) and team. All are in agreement with plan. Aliza Martino MSN-Ed, RN ACM stamping die maker bench Office of Care Management Pager #[phone] * Plan of Care - Favian Mckeon [...] Type: *No Product type* / Secondary Insurance: [facility] [place] Last Physical Therapy Recommendation: (Home with assist from Brother; Friend arriving Tues) with walker, front wheeled Last Occupational Therapy Recommendation: swing bed rehabilitation facility, custodial facility (vs home with support for IADLs) with walker, front wheeled, shower chair Plan for discharge is: Home w/ Services Outpatient Agency/Support Group Needs: Homecare agency Home Health Services: Physical Therapy, Occupational Therapy Agency Referrals: I have met with the patient to: discuss discharge planning needs. describing our affiliations within the [facility] and educate about their right to choose where referrals are sent. provide a list of Home Health Agencies / Durable Medical Equipment vendors which serve their preferred geographic area. They have requested referrals to: [facility] [address] [place] [id number] [facility] @ [facility] [place] [place], [place] Note routed to a Corporate Development Associate who will communicate referrals to facilities and provide any required information. Transportation: family or friend will provide *Brother Raymond on Tuesday 05/22 at 1000 Barriers to discharge: Does not have home 22/02 assist available until tomorrow Tuesday 05/22 Plan going forward: Discharge home into the 22/02 home care of brother Raymond with [facility] FWW and [facility] PT/OT services on Tuesday 05/22 [...] Attending: All Staff: Staff Role Juanita Almaguer Telephone Ad Taker Laure Ricks PA Physician Otr Owner Operator Magdalena Rodriguez RN Radiology Nurse Consuelo Espinoza [...] Type: *No Product type* / Secondary Insurance: [facility] [place] Last Physical Therapy Recommendation: custodial facility, swing bed rehabilitation facility with to be determined Last Occupational Therapy Recommendation: with Plan for discharge is: Halfway Facility / Swing Outpatient Agency/Support Group Needs: None Agency Referrals: Based on discussions with the multi-disciplinary healthcare team, the patient would benefit from SNF / Swing level of care at discharge. I have met with the patient to: discuss discharge planning needs. provide the [facility] [place] [place], Office of Care Management letter from the Diamond Saw Operator pertaining to rehab referrals. provide a letter describing our affiliations within the [facility] and educate about their right to choose where referrals are sent. provide the CMS Star Quality Rating handout. review the different levels of rehab including SNF, swing, and acute. provide a list of facilities within their preferred geographic area. request that they provide at least three choices for referral. They have requested referrals to: [facility] [address] [place] [address] [facility] ([facility]) [address] [place] [address] (Accepts pts only after exhausting all other local SNF options) [facility] (Swing) ([facility]) [address] [place] [address] PHONE: [phone] FAX: [phone] [facility] (Swing) ([facility]) [address] [place] [place] [address] PHONE: [phone] FAX: [phone] Note routed to a Corporate Development Associate who will communicate referrals to facilities and [...] Crenshaw RN - 05/17/2023 10:25 AM EDT [facility] [place] [place] CARDIAC REHABILITATION Purnimakary Thacker was seen today regarding participation in the outpatient Phase 2 Cardiac Rehabilitation at [facility]. The patient agrees to a referral [...] from the original note were not included. [facility] NEPHROLOGY/HYPERTENSION CONSULT NOTE PATIENT: Purnima Thacker [...] in her course. She ultimately underwent a irujf-gs-tbfuf procedure on and tolerated it well (see [...] 1423 05/12/23 1105 PHART 7.39 7.37 7.34* AQL4VRF 33* 36 42 PO2ART 101 102 73* UMJ2GOP 19.5* 20.4 22.1 LACTATEVEN 1.5 1.8 2.8* ICM6VGL 40 40 40 PFRATIOART2 252 255 182 VBG (Venous Blood Gas) Recent Labs 05/12/23 1557 05/12/23 1423 05/12/23 1105 LACTATEVEN 1.5 1.8 2.8* Mixed Venous Sat Recent Labs 05/12/23 1425 05/12/23 0508 05/12/23 0321 X7TPKM8 59.9 30.7 32.7 LFT's: Recent Labs 05/14/23 0110 05/13/23 0115 05/12/23 0600 BILITOT 0.4 0.5 0.9 BILIDIR -- 0.3 -- ALBUMIN 3.6 3.0* 3.5 ALKPHOS 86 85 100 ALT 437* 903* 1,174* AST 319* 792* 1,435* No results found for: UPROTCREAT No results found for: TPROTEINPEP, ALBELECT No results found for: MICROALBUR, LQAB08QRP No results found for: HA1C Lab Results Component Value Date CALCIUM 8.5 05/14/2023 PHOS 4.7 (H) 05/08/2023 No results found for: 25OHVITD MICROBIOLOGY: ProcedureComponentValueUnitsDate/TimeUrine culture [[id number]]Collected: 05/11/23 1922Lab Status: Final resultSpecimen: Clean Catch [...] consulted for assessment if this patient needs DESIGNER WRITER. Atthis time, we can likely hold off on DESIGNER WRITER. Her volume status appears sufficient and her metabolic kanawl angements with mild acidosis is not too profound. Patient does not have significant uremic symptoms. We can hold off for today, but the patient is a high risk candidate for needing DESIGNER WRITER in future daysespecially if her Cr curve trends the direction it is for the next several days. S/p Clcmj-rg-Pjrsm TF TAVR: Management per cardiology. On milrinone gtt. PLAN: - Please obtain following diagnostics: renal US, urinalysis, urine prot/Cr ratio, urine albumin/Cr ratio, CK, uric acid, serum osmol, daily VBGs - No acute indications for DESIGNER WRITER/dialysis. We will keep close eye on Cr trend, volume status, and metabolics to ensure patient still does not need DESIGNER WRITER as she ensues intrinsic renal recovery - [...] M.HDavid., M.A. PGY-V Nephrology-Hypertension Fellow Page # [phone] [facility] [address] 2nd floor, Adult Manager [address] [place] [address] * Care Management - Maroi Alberto Olmos RN - 05/13/2023 10:23 AM [...] CVCC at 0945. Was intubated in the wastewater analyst lab analyst due to agitation. Maintained bedrest for 5 [...] Operative Note Patient Name: Purnima Thacker : [id number] MR#: [id number] Case Date: 05/12/2023 Surgeon: Surgeon(s) and Role: [...] procedure Note: Patient Name: Purnima Thacker : [id number] MR#: [id number] Case Date: 05/12/2023 Operators Surgeon: Surgeon(s) and Role: Panel 1: * Antelmo Sharma MD - Primary * Rebekah Tejeda MD - Fellow - Assisting Panel 2: * lAirio Hudson MD - Primary Panel 3: * [...] main with 4.0 x 30 mm Resolute [place] Drug Eluting Stent Perclose x1 + Angio-seal 8 Fr x1, RFA Manual pressure, LFA Manual pressure, LFV Endotracheal intubation (performed by cardiac anesthesia) Preliminary findings: Successful right transfemoral TAVR Hoexb-nh-Nxyor with a 23 mm Lai 3 THV. [...] MD, M.Sc. Structural Heart Disease Fellow Pager :[phone] Antelmo Sharma MD Pager [phone] * Op Note - Alirio Hudson MD - 05/12/2023 7:37 AM EDT Preop Diagnosis: Severe aortic stenosis, symptomatic. Postop Diagnosis: Same. Procedure: Transfemoral TAVR procedure with 23mm valve. Surgeon: Alirio Hudson M.D. Clinical Account Liaison: Danny CULP Procedure: The patient was taken to the wastewater analyst lab analyst. The patient had monitored anesthesia care. 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 [facility] [place] [id number] STRUCTURAL HEART DISEASE CONSULTATION NOTE PRIMARY CARE [...] who had been referred for possible TAVR gswyg-ke-gwxxb evaluation. Her primary symptoms are of dyspnea [...] [facility]. 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 PROBLEM LIST: Patient Active Problem List Diagnosis Symptomatic severe aortic stenosis with low ejection fraction Mild coronary artery disease by [facility] 11/09/2022 Heart failure with reduced [...] hour(s)) Lactate, whole blood, send to lab ([facility] [place] Result Value Ref Range Lactate WB 1.8 [...] leads Confirmed by MD Harshil, Enrique Bell ([id number]) on 05/10/2023 8:11:46 AM Assessment and Plan: [...] Antelmo Sharma MD Structural Heart Disease Pager [phone] * Plan of Care - ArletSarahi arnold RN - 05/10/2023 3:55 AM Brionna LYLE Note and Care Plan Sarahi Nice RN assumed care of pt at time of their arrival to room 362 from [facility]. Pt voices shortness of breath at time [...] listening utilized Taken 05/08/20231999 by Alivia Kauffman truck engine assembler/Support System Care: self-care encouraged support provided Problem: [...] Manage Obstructive Sleep Apnea Flowsheets (Taken 05/09/2023 8302) NPPV/CPAP Maintenance: home PAP equipment/settings used * Initial Assessments - Alie Bradshaw RN - 05/09/2023 3:42 PM EDT Office of Care Management Initial Assessment Alie Bradshaw RN reviewed record and discussed patient with Care Team. Source of Information: Team, bedside nurse, medical record, and Patient Introduced self/reviewed role; services accepted. Admitted From: Transfer from another hospital Location: admitted from [facility] Reason for Hospitalization: Critical aortic stenosis, causing [...] 180 days) Any patient receiving care in [place] must abide by [place] law. The hierarchy [...] (i) The agent with financial power of transactional attorney or a conservator appointed in accordance [...] DME: none Home Address confirmed as: [address] [address] Social & Family Supports: All names listed [...] Type: *No Product type* / Secondary Insurance: [email or web address] [facility] [place] ONLY if patient has Medicare A&B - Does this patient have secondary insurance?: Yes ; Prescription Coverage: Yes Preferred Pharmacy: updated to [facility] Status: Patient is a : No Primary Care Provider confirmed: Magdalena Acosta MD [phone] Patient/Caregiver Goals of Treatment: Potential Needs for [...] EVALUATION NOTE: OUTCOME SUMMARY: Pt arrived from [facility]. A&O, no c/o pain or SOB. Heparin [...] EST Office [place] [address] Magdalena Peralta MD [facility] [place] [address] 03/01/2025 4:15 PM EDT Office Visit Dermatology at [address] [place] [phone] Marek Bonilla MD [address] [facility] [address] [place] [address] Scheduled Referrals Name Type Priority Associated Diagnoses Orde r Schedule Referral to Cardiac Rehab Outpatient Referral Routine S/P TAVR (transcatheter aortic valve replacement) Ordered: 05/22/2023 Referral to Home Health Outpatient Referral Routine S/P TAVR (transcatheter aortic valve replacement) Ordered: 05/22/2023 documented as of this encounter Procedures Procedure Name Priority Date/Time Associated Diagnosis Comments BASIC METABOLIC PANEL Routine 05/22/2023 3:57 AM EDT BASIC METABOLIC PANEL Routine 05/21/2023 5:06 AM EDT LAVENDER TUBE HOLD Routine 05/20/2023 2: 52 AM EDT POTASSIUM Routine 05/20/2023 2:52 AM EDT BASIC METABOLIC PANEL Routine 05/20/2023 2:52 AM EDT XR CHEST PA AND LATERAL Routine 05/19/20 11:01 AM EDT BASIC METABOLIC PANEL Routine 05/19/2023 5:49 AM EDT IR CHEST TUBE PLACEMENT RIGHT Routine 05/18/2023 4:36 PM EDT BASIC METABOLIC PANEL Routine 05/18/2023 2:54 AM EDT XR CHEST PA AND LATERAL Routine 05/17/20 9:29 AM EDT COMPREHENSIVE METABOLIC PANEL Routine 05/17/2023 4:35 AM EDT POTASSIUM Routine 05/16/2023 11:15 PM EDT MAGNESIUM Timed 05/16/2023 5:22 PM EDT BASIC METABOLIC PANEL Timed 05/16/2023 5:22 PM EDT POTASSIUM Routine 05/16/2023 11:43 AM EDT PTH Routine 05/16/2023 4:41 AM EDT VITAMIN D, 25-HYDROXY Routine 05/16/2023 4:41 AM EDT FERRITIN Routine 05/16/2023 4:41 AM EDT BLOOD GAS VENOUS ([facility]) Timed 4:22 AM EDT HEMOGRAM Routine 05/16/2023 4:20 AM EDT DIFFERENTIAL, AUTOMATED Routine 05/16/20 4:20 AM EDT IRON AND TIBC Routine 05/16/2023 4:20 AM EDT CBC (WITH DIFF) Routine 05/16/2023 4:20 AM EDT BASIC METABOLIC PANEL Routine 05/16/2023 4:20 AM EDT HEMOGRAM Routine 05/15/2023 12:50 AM EDT BASIC METABOLIC PANEL Routine 05/15/2023 12:50 AM EDT BLOOD GAS VENOUS POC Routine 05/15/2023 12:49 AM EDT US RETROPERITONEAL COMPLETE Routine 05/14/2023 3:53 PM EDT URIC ACID Routine 05/14/2023 3:17 PM EDT OSMOLALITY Routine 05/14/2023 3:17 PM EDT CK Routine 05/14/2023 3:17 PM EDT HEMOGRAM Routine 05/14/2023 1:10 AM EDT DIFFERENTIAL, AUTOMATED Routine 05/14/20 1:10 AM EDT CBC (WITH DIFF) Routine 05/14/2023 1:10 AM EDT COMPREHENSIVE METABOLIC PANEL Routine 05/14/2023 1:10 AM EDT HC PARTIAL THROMBOPLASTIN TIME Routine 05/13/2023 10:15 AM EDT PROTHROMBIN TIME Routine 05/13/2023 10:1 5 AM EDT EKG 12-LEAD Routine 05/13/2023 9:22 AM EDT S/P TAVR (transcatheter aortic valve replacement) HEMOGRAM Routine 05/13/2023 1:15 AM EDT DIFFERENTIAL, AUTOMATED Routine 05/13/20 1:15 AM EDT CBC (WITH DIFF) Routine 05/13/2023 1:15 AM EDT HEPATIC FUNCTION PANEL Routine 1:15 AM EDT BASIC METABOLIC PANEL Routine 05/13/2023 1:15 AM EDT EXTUBATE Routine 05/12/2023 4:03 PM EDT BLOOD GAS ARTERIAL POC Routine 3:57 PM EDT COOX, POC Routine 05/12/2023 2:25 PM EDT BLOOD GAS ARTERIAL POC Routine 2:23 PM EDT TROPONIN STAT 05/12/2023 2:05 PM EDT HEMOGLOBIN Routine 05/12/2023 2:05 PM EDT POTASSIUM Routine 05/12/2023 2:05 PM EDT BLOOD GAS ARTERIAL POC Routine 11:05 AM EDT BLOOD GAS ARTERIAL POC Routine 10:14 AM EDT EKG 12-LEAD STAT 05/12/2023 [...] Heart Cath W/Inj L Ventriculography, Img S&I (34662) 05/12/2023 7:37 AM EDT Aortic valve stenosis, etiology of cardiac valve disease unspecified LACTATE, WHOLE BLOOD Routine 05/12/2023 7:00 AM EDT COMPREHENSIVE METABOLIC PANEL Routine 05/12/2023 6:00 AM EDT @TRANSCATHETER AORTIC VALVE REPLACEMENT (TAVR), PERCUTANEOUS FEMORAL Routine 05/12/2023 5:53 AM EDT Aortic valve stenosis, etiology of cardiac valve disease unspecified COOX, POC Routine 05/12/2023 5:08 AM EDT COOX, POC Routine 05/12/2023 3:21 AM EDT BLOOD GAS ARTERIAL POC Routine 3:18 AM EDT COOX, POC Routine 05/12/2023 1:14 AM EDT BLOOD GAS ARTERIAL POC Routine 1:06 AM EDT HEMOGRAM Routine 05/12/2023 1:05 AM EDT DIFFERENTIAL, AUTOMATED Routine 05/12/20 1:05 AM EDT CBC (WITH DIFF) Routine 05/12/2023 1:05 AM EDT COMPREHENSIVE METABOLIC PANEL Routine 05/12/2023 1:05 AM EDT XR CHEST ONE VIEW Routine 05/12/2023 1:0 0 AM EDT COOX, POC Routine 05/12/2023 12:30 AM EDT XR CHEST ONE VIEW STAT 05/11/2023 11: 45 PM EDT LACTATE, WHOLE BLOOD Routine 05/11/2023 7:40 PM EDT URINALYSIS MICROSCOPIC EXAM Routine 05/11/2023 7:22 PM EDT URINALYSIS WITH REFLEX CULTURE Routine 05/11/2023 7:22 PM EDT URINE CULTURE Routine 05/11/2023 7:22 PM EDT PRO-BRAIN NATRIURETIC PEPTIDE Routine 05/11/2023 7:11 PM EDT LACTATE, WHOLE BLOOD Routine 05/11/2023 2:[address] HEART FOR FUNCTION (NON-CORONARY) W CONTRAST Routine 05/11/2023 10:[address] ANGIOGRAM ABDOMEN AND PELVIS W CONTRAST Routine 05/11/2023 10:41 AM EDT LACTATE, WHOLE BLOOD Routine 05/11/2023 9:29 AM EDT HEPARIN (UNFRACTIONATED) LEVEL Timed 05/11/2023 4:42 AM EDT HEMOGRAM Routine 05/11/2023 4:42 AM EDT DIFFERENTIAL, AUTOMATED Routine 05/11/20 4:42 AM EDT CBC (WITH DIFF) Routine 05/11/2023 4:42 AM EDT COMPREHENSIVE METABOLIC PANEL Routine 05/11/2023 4:42 AM EDT EKG 12-LEAD Routine 05/10/2023 1:16 PM EDT Symptomatic severe aortic stenosis with low ejection fraction LACTATE, WHOLE BLOOD Routine 05/10/2023 11:52 AM EDT XR CHEST ONE VIEW Routine 05/10/2023 11: 16 AM EDT EKG 12-LEAD STAT 05/10/2023 7:59 AM EDT Aortic valve stenosis, etiology of cardiac valve disease unspecified HEPARIN (UNFRACTIONATED) LEVEL Timed 05/10/2023 2:28 AM EDT HEMOGRAM Routine 05/10/2023 2:28 AM EDT DIFFERENTIAL, AUTOMATED Routine 05/10/20 2:28 AM EDT CBC (WITH DIFF) Routine 05/10/2023 2:28 AM EDT COMPREHENSIVE METABOLIC PANEL Routine 05/10/2023 2:28 AM EDT HEPARIN (UNFRACTIONATED) LEVEL Timed 05/09/2023 4:00 AM EDT HEMOGRAM Routine 05/09/2023 4:00 AM EDT DIFFERENTIAL, AUTOMATED Routine 05/09/20 4:00 AM EDT CBC (WITH DIFF) Routine 05/09/2023 4:00 AM EDT COMPREHENSIVE METABOLIC PANEL Routine 05/09/2023 4:00 AM EDT HEPARIN (UNFRACTIONATED) LEVEL Timed 05/08/2023 4:00 PM EDT POTASSIUM Routine 05/08/2023 4:00 PM EDT PRO-BRAIN NATRIURETIC PEPTIDE Routine 05/08/2023 4:00 PM EDT MAGNESIUM Routine 05/08/2023 4:00 PM EDT EKG 12-LEAD STAT 05/08/2023 3:51 PM EDT Aortic valve stenosis, etiology of cardiac valve disease unspecified HEMOGRAM Routine 05/08/2023 11:38 AM EDT DIFFERENTIAL, AUTOMATED Routine 05/08/20 11:38 AM EDT CBC (WITH DIFF) Routine 05/08/2023 11:38 AM EDT TSH Routine 05/08/2023 11:38 AM EDT PHOSPHORUS Routine 05/08/2023 11:38 AM EDT MAGNESIUM Routine 05/08/2023 11:38 AM EDT BASIC METABOLIC PANEL Routine 05/08/2023 11:38 AM EDT ECHO COMPLETE Routine 05/08/2023 11:02 AM EDT Aortic valve stenosis, etiology of cardiac valve disease unspecified HEPARIN (UNFRACTIONATED) LEVEL Routine 05/08/2023 9:45 AM EDT documented in this encounter Results * ECHO LMTD W/O CONTRAST W LMTD SPEC DOPP COLOR DOPP (07/08/2023 12:15 PM EST) Pathologist [facility] EF 20 HEARTTruli SYSTEM Anatomical Region Laterality Modality Cardiac Other 07/08/2023 10:3 1 AM EST Narrative 07/08/2023 12:26 PM EST [address] [place] [address] ? Echocardiogram Report Name: PURNIMA THACKER ?Study Date: 07/08/2023 10:31 AMBP: 118/60 mmHg ? Patient Location: 4A : 1955 ? Height: 155 cm ? Account: [id number] Age: 67 yrs ? Weight: 74 kg Gender: Female ?BSA: 1.7 m2 Ordering Physician: ALIRIO HUDSON Referring Physician: VINOD JUÁREZ Performed By: Felicia Norris RDCS Reason For Study: S/P TAVR Exam Location: [facility]. Interpretation Summary Left ventricular systolic function is [...] no significant change (post-procedure). Procedure Limited - 64398. Doppler - 52289. Color Doppler - 30789. Satisfactory quality. This study is limited because [...] Note Lee Kincaid MD - 07/08/2023 1 [place] [address] Echocardiogram Report Name: KIRSTIE PURNIMA M Study Date: 310:31 AMBP: 118/60 mmHg Patient Location: : 1955 Height: 155 cm Account: [id number] Age: 67 yrs Weight: 74 kg Gender: Female BSA: 1.7 m2 Ordering Physician: ALIRIO HUDSON Referring Physician: VINOD JUÁREZ Performed By: Felicia Norris RODOLFO Reason For Study: S/P TAVR Exam Location: [facility]. Interpretation Summary Left ventricular systolic function is [...] is nosignificant change (post-procedure). Procedure Limited - 89100. Doppler - 75597. Color Doppler - 31801. Satisfactoryquality. This study is limited because of [...] EST) Glucose 93 65 - 199 mg/dL [facility] Comment:Diabetes: >=200 mg/d L plus symptoms Blood Urea Nitrogen 19(H) 8 - 18 mg/dL [facility] Creatinine 0.81 0.70 - 1.20 mg/dL [facility] Sodium 142 135 - 145 mmol/L [facility] Potassium 3.8 3.5 - 5.0 mmol/L [facility] Comment: Please note: ??Patients with WBC >100,000 may have falsely elevated Potassium levels. ??For accurate Potassium quantification in these patients send serum separator tube (gold top) for subsequent determinations. ??Contact the Clinical Chemistry Laboratory if there are any questions. Chloride 104 98 - 107 mmol/L [facility] Carbon Dioxide 26 22 - 31 mmol/L [facility] Anion Gap 12 5 - 15 mmol/L [facility] Calcium 10.2 8.5 - 10.5 mg/dL [facility] Protein, Total 7.4 6.1 - 8.0 g/dL [facility] Albumin 4.1 3.2 - 5.2 g/dL [facility] Aspartate Aminotransferase 24 0 - 30 unit/L [facility] Alanine Aminotransferase 12 0 - 30 unit/L [facility] Alkaline Phosphatase 93 35 - 105 unit/L [facility] Bilirubin, Total 0.3 0.2 - 1.3 mg/dL [facility] Est Glomerular Filtration Rate 80 >=60 mL/min/1. 73 m?? [facility] Comment: This patient's estimated GFR was [...] City/State/[facility] Co de Phone Number [place] [address] * (ABNORMAL) Basic Metabolic Panel (non-fasting) (05/22/2023 3:57 AM EDT) Glucose 88 65 - 199 mg/dL [facility] Comment:Diabetes: >=200 mg/d L plus symptoms Blood Urea Nitrogen 21(H) 8 - 18 mg/dL [facility] Creatinine 0.69(L) 0.70 - 1.20 mg/dL [facility] Sodium 136 135 - 145 mmol/L [facility] Potassium 3.6 3.5 - 5.0 mmol/L [facility] Comment: Please note: ??Patients with WBC >100,000 may have falsely elevated Potassium levels. ??For accurate Potassium quantification in these patients send serum separator tube (gold top) for subsequent determinations. ??Contact the Clinical Chemistry Laboratory if there are any questions. Chloride 102 98 - 107 mmol/L [facility] Carbon Dioxide 23 22 - 31 mmol/L [facility] Anion Gap 11 5 - 15 mmol/L [facility] Calcium 8.6 8.5 - 10.5 mg/dL [facility] Est Glomerular Filtration Rate 95 >=60 mL/min/1. 73 m?? [facility] Comment: This patient's estimated GFR was [...] Lab Mara Serrano ANURAG CHEMISTRY ORDERABL ES [place] [address] * (ABNORMAL) Basic Metabolic Panel (non-fasting) (05/21/2023 5:06 AM EDT) Pathologist [facility] Glucose 87 65 - 199 mg/dL [facility] Comment:Diabetes: >=200 mg/d L plus symptoms Blood Urea Nitrogen 25(H) 8 - 18 mg/dL [facility] Creatinine 0.84 0.70 - 1.20 mg/dL [facility] Sodium 136 135 - 145 mmol/L [facility] Potassium 3.6 3.5 - 5.0 mmol/L [facility] Comment: Please note: ??Patients with WBC >100,000 may have falsely elevated Potassium levels. ??For accurate Potassium quantification in these patients send serum separator tube (gold top) for subsequent determinations. ??Contact the Clinical Chemistry Laboratory if there are any questions. Chloride 102 98 - 107 mmol/L [facility] Carbon Dioxide 26 22 - 31 mmol/L [facility] Anion Gap 8 5 - 15 mmol/L [facility] Calcium 8.9 8.5 - 10.5 mg/dL [facility] Est Glomerular Filtration Rate 76 >=60 mL/min/1. 73 m?? [facility] Comment: This patient's estimated GFR was [...] Agency Comment Spec In Lab Mara Thomasfield ANURAG CHEMISTRY ORDERABL ES Performing Organization Address [facility] Co de Phone Number [facility] [place] [phone] * Lavender Tube HOLD (05/20/2023 2:52 AM EDT) Lavender Hold Sample in lab. [facility] Blood Venous Draw / Unknown 05/20/2023 2:52 AM EDT 05/20/2023 3:04 AM EDT Mara [place]field ANURAG HEMATOLOGY ORDERAB LES Performing Organization Address [facility] de Phone Number [place] [address] * (ABNORMAL) Basic Metabolic Panel (non-fasting) (05/20/2023 2:52 AM EDT) Glucose 152 65 - 199 mg/dL [facility] Comment:Diabetes: >=200 mg/d L plus symptoms Blood Urea Nitrogen 33(H) 8 - 18 mg/dL [facility] Creatinine 0.82 0.70 - 1.20 mg/dL [facility] Sodium 137 135 - 145 mmol/L [facility] Potassium 3.7 3.5 - 5.0 mmol/L [facility] Comment: Please note: ??Patients with WBC >100,000 may have falsely elevated Potassium levels. ??For accurate Potassium quantification in these patients send serum separator tube (gold top) for subsequent determinations. ??Contact the Clinical Chemistry Laboratory if there are any questions. Chloride 99 98 - 107 mmol/L [facility] Carbon Dioxide 22 22 - 31 mmol/L [facility] Anion Gap 16(H) 5 - 15 mmol/L [facility] Calcium 9.0 8.5 - 10.5 mg/dL [facility] Est Glomerular Filtration Rate 78 >=60 mL/min/1. 73 m?? [facility] Comment: This patient's estimated GFR was [...] Narrative Resulting Agency Comment Spec [facility] Performing Organization Address City/[facility]/ZIP Co de Phone Number [place] [address] * (ABNORMAL) Potassium (05/20/2023 2:52 AM EDT) Potassium 3.4(L) 3.5 - 5.0 mmol/L [facility] Comment: Please note: ??Patients with WBC >100,000 may have falsely elevated Potassium levels. ??For accurate Potassium quantification in these patients send serum separator tube (gold top) for subsequent determinations. ??Contact the Clinical Chemistry Laboratory if there are any questions. Blood 05/20/2023 2:52 AM EDT 05/20/2023 3:03 AM EDT Narrative Resulting Agency Comment Spec In Lab [facility] [employer] CHEMISTRY ORDERABL ES Performing Organization Address City/[facility]/ZIP Co de Phone Number [place] [address] * XR Chest PA & Lateral (Generic) [...] who have questions please contact the health dog day care attendant that requested your imaging first. ? Narrative [...] patients who have questions please contactthe health dog day care attendant that requested your imaging first. Alirio Hudson MD IMG DX ORDERABLES * (ABNORMAL) Basic Metabolic Panel (non-fasting) (05/19/2023 5:49 AM EDT) Glucose 93 65 - 199 mg/dL [facility] Comment:Diabetes: >=200 mg/d L plus symptoms Blood Urea Nitrogen 45(H) 8 - 18 mg/dL [facility] Creatinine 1.02 0.70 - 1.20 mg/dL [facility] Sodium 138 135 - 145 mmol/L [facility] Potassium 3.9 3.5 - 5.0 mmol/L [facility] Comment: Please note: ??Patients with WBC >100,000 may have falsely elevated Potassium levels. ??For accurate Potassium quantification in these patients send serum separator tube (gold top) for subsequent determinations. ??Contact the Clinical Chemistry Laboratory if there are any questions. Chloride 102 98 - 107 mmol/L [facility] Carbon Dioxide 26 22 - 31 mmol/L [facility] Anion Gap 10 5 - 15 mmol/L [facility] Calcium 9.7 8.5 - 10.5 mg/dL [facility] Est Glomerular Filtration Rate 60 >=60 mL/min/1. 73 m?? [facility] Comment: This patient's estimated GFR [...] Lab Mara Serrano ANURAG [place] [address] * IR Chest Tube Placement Right (05/18/2023 [...] MD 05/18/2023 Alirio Hudson MD [facility] [place] ORDERABLES * (ABNORMAL) Basic Metabolic Panel (non-fasting) (05/18/2023 2:54 AM EDT) Glucose 95 65 - 199 mg/dL [facility] Comment:Diabetes: >=200 mg/d L plus symptoms Blood Urea Nitrogen 71(H) 8 - 18 mg/dL [facility] Comment:result rechecked-JS Creatinine 1.64(H) 0.70 - 1.20 mg/dL [facility] Comment:result rechecked-JSJ Sodium 137 135 - 145 mmol/L [facility] Potassium 3.7 3.5 - 5.0 mmol/L [facility] Comment: Please note: ??Patients with WBC >100,000 may have falsely elevated Potassium levels. ??For accurate Potassium quantification in these patients send serum separator tube (gold top) for subsequent determinations. ??Contact the Clinical Chemistry Laboratory if there are any questions. Chloride 100 98 - 107 mmol/L [facility] Carbon Dioxide 24 22 - 31 mmol/L [facility] Anion Gap 13 5 - 15 mmol/L [facility] Calcium 9.7 8.5 - 10.5 mg/dL [facility] Est Glomerular Filtration Rate 34(L) >=60 mL/min/1. 73 m?? [facility] Comment: This patient's estimated GFR [...] Agency Comment Spec In Lab Mara Serrano [employer] CHEMISTRY ORDERABL ES [place] [address] * XR Chest PA & Lateral (Generic) [...] who have questions please contact the health dog day care attendant that requested your imaging first. ? Narrative [...] patients who have questions please contactthe health dog day care attendant that requested your imaging first. Alirio Hudson MD IMG DX ORDERABLES * (ABNORMAL) Comprehensive metabolic panel (non-fasting) (05/17/2023 4:35 AM EDT) Glucose 89 65 - 199 mg/dL [facility] Comment:Diabetes: >=200 mg/d L plus symptoms Blood Urea Nitrogen 97(H) 8 - 18 mg/dL [facility] Creatinine 2.97(H) 0.70 - 1.20 mg/dL [facility] Comment:result rechecked-JSJ Sodium 135 135 - 145 mmol/L [facility] Potassium 4.1 3.5 - 5.0 mmol/L [facility] Comment: Please note: ??Patients with WBC >100,000 may have falsely elevated Potassium levels. ??For accurate Potassium quantification in these patients send serum separator tube (gold top) for subsequent determinations. ??Contact the Clinical Chemistry Laboratory if there are any questions. Chloride 97(L) 98 - 107 mmol/L [facility] Carbon Dioxide 22 22 - 31 mmol/L [facility] Anion Gap 16(H) 5 - 15 mmol/L [facility] Calcium 9.6 8.5 - 10.5 mg/dL [facility] Protein, Total 6.5 6.1 - 8.0 g/dL [facility] Albumin 3.7 3.2 - 5.2 g/dL [facility] Aspartate Aminotransferase 58(H) 0 - 30 unit/L [facility] Alanine Aminotransferase 66(H) 0 - 30 unit/L [facility] Alkaline Phosphatase 86 35 - 105 unit/L [facility] Bilirubin, Total 0.6 0.2 - 1.3 mg/dL [facility] Est Glomerular Filtration Rate 17(L) >=60 mL/min/1. 73 m?? [facility] Comment: This patient's estimated GFR was [...] Lab Alirio Hudson MD CHEMISTRY ORDERABLE S [place] [address] * Potassium (05/16/2023 11:15 PM EDT) Potassium 3.7 3.5 - 5.0 mmol/L [facility] Comment: Please note: ??Patients with WBC [...] MD CHEMISTRY ORDERABLE S Performing Organization Address [facility]/ZIP Co de Phone Number [place] [address] * Magnesium (05/16/2023 5:22 PM EDT) Pathologist [facility] Magnesium 0.96 0.69 - 1.07 mmol/L [facility] Blood 05/16/2023 5:22 PM EDT 05/16/2023 5:27 PM EDT Narrative Resulting Agency Comment Spec In Lab Alirio Hudson MD CHEMISTRY ORDERABLE S Performing Organization Address [facility] Co de Phone Number [place] [address] * (ABNORMAL) Basic Metabolic Panel (non-fasting) (05/16/2023 5:22 PM EDT) Glucose 106 65 - 199 mg/dL [facility] Comment:Diabetes: >=200 mg/d L plus symptoms Blood Urea Nitrogen 103(H) 8 - 18 mg/dL [facility] Creatinine 3.91(H) 0.70 - 1.20 mg/dL [facility] Comment:result rechecked-imm Sodium 132(L) 135 - 145 mmol/L [facility] Potassium 3.6 3.5 - 5.0 mmol/L [facility] Comment: Please note: ??Patients with WBC >100,000 may have falsely elevated Potassium levels. ??For accurate Potassium quantification in these patients send serum separator tube (gold top) for subsequent determinations. ??Contact the Clinical Chemistry Laboratory if there are any questions. Chloride 92(L) 98 - 107 mmol/L [facility] Carbon Dioxide 22 22 - 31 mmol/L [facility] Anion Gap 18(H) 5 - 15 mmol/L [facility] Calcium 9.7 8.5 - 10.5 mg/dL [facility] Est Glomerular Filtration Rate 12(L) >=60 mL/min/1. 73 m?? [facility] Comment: This patient's estimated GFR was [...] City/State/[facility] Co de Phone Number [place] [address] * (ABNORMAL) Potassium (05/16/2023 11:43 AM EDT) Potassium 3.3(L) 3.5 - 5.0 mmol/L [facility] Comment: Please note: ??Patients with WBC >100,000 may have falsely elevated Potassium levels. ??For accurate Potassium quantification in these patients send serum separator tube (gold top) for subsequent determinations. ??Contact the Clinical Chemistry Laboratory if there are any questions. Blood 05/16/2023 11:4 3 AM EDT 05/16/2023 11:47 AM EDT Narrative Resulting Agency Comment Spec In Lab Alirio Hudson MD CHEMISTRY ORDERABLE S [place] [address] * (ABNORMAL) Ferritin (05/16/2023 4:41 AM EDT) Ferritin 1,813(H) 30 - 400 ng/mL [facility] Comment: Pediatric reference ranges not verified at [facility] [place], interpret with caution. Reference ranges for females greater than 50 years of age approach values for men, i.e., 30-400 ng/mL. Blood 05/16/2023 4:41 AM EDT 05/16/2023 4:54 AM EDT Narrative Resulting Agency Comment Spec In Lab Kristopher Ayoub MD CHEMISTRY ORDERABLES Performing Organization Address City/[facility]/ZIP Co de Phone Number [place] [address] * (ABNORMAL) PTH (05/16/2023 4:41 AM EDT) Parathyroid Hormone 120(H) 15 - 65 pg/mL [facility] Blood 05/16/2023 4:41 AM EDT 05/16/2023 4:54 AM EDT Narrative Resulting Agency Comment Spec In Lab Kristopher Ayoub MD CHEMISTRY ORDERABLES Performing Organization Address City/[facility]/ZIP Co de Phone Number [place] [address] * Vitamin D, 25-Hydroxy (05/16/2023 4:41 AM EDT) [facility] [address] Vitamin D Total 25 OH 33 21 - 100 ng/mL [facility] Vit D Interp Sufficient [facility] Blood 05/16/2023 4:41 AM EDT 05/16/2023 4:54 AM EDT Narrative Resulting Agency Comment Spec In Lab Kristopher Ayoub MD CHEMISTRY ORDERABLES [place] [address] * (ABNORMAL) Blood Gas Venous ([facility]) (05/16/2023 4:22 AM EDT) pH, Venous 7.41 7.32 - 7.42 [facility] PCO2, Venous 32(L) 41 - 51 mmHg [facility] PO2, Venous 73(H) 25 - 40 mmHg [facility] Bicarbonate, Venous 19.6 mmol/L [facility] Base Excess, Venous -5.1 mmol/L [facility] Hgb Blood Gas 9.7(L) 11.7 - 15.5 g/dL [facility] Oxyhemoglobin, Venous 92.8 % [facility] Carboxyhemoglob in, Venous 0.1 % [facility] Comment: Nonsmokers: 0.5-1.5% COHB Smokers: Variable, but usually less than 10% Toxic: 20-30% COHB Lethal: Greater than 60% COHB Methemoglobin, Venous 0.3 <=1.5 % [facility] Na Whole Blood 130(L) 135 - 145 mmol/L [facility] K Whole Blood 3.7 3.5 - 5.0 mmol/L [facility] Comment: Please note: Patients with WBC >100,000 may have falsely elevated Potassium levels. Contact the Clinical Chemistry Laboratory if there are any questions. ICa Whole Blood 1.15 1.15 - 1.33 mmol/L [facility] Comment: Note: ??Total bilirubin higher than 20 mg/dL may lead to falsely low ionized calcium. CL Whole Blood 95(L) 98 - 107 mmol/L [facility] Gluc Whole Bld 82 65 - 199 mg/dL [facility] Comment:Diabetes: >=200 mg/d L plus symptoms Lactate WB 1.1 0.5 - 2.2 mmol/L [facility] Blood Gas Source Venous [facility] Blood Venous Draw / Unknown 05/16/2023 4:22 AM EDT 05/16/2023 4:31 AM EDT Narrative Resulting Agency Comment Spec In Lab Bonita TOBAR CHEMISTRY ORDERABLES [place] [address] * (ABNORMAL) Differential, Automated (05/16/2023 4:20 AM EDT) Neutrophil % 84.1 % [facility] Neutrophil Absolute 6.22(H) 1.70 - 6.10 x10(3)/mc L [facility] Lymph % 5.8 % [facility] Lymphocytes Abs 0.4(L) 0.9 - 3.2 x10(3)/mc L [facility] Monocyte % 8.8 % [facility] Monocyte Abs 0.6 0.3 - 0.9 x10(3)/mc L [facility] Eos % 0.4 % [facility] Eosinophils Abs 0.0 0.0 - 0.4 x10(3)/mc L [facility] Basophil % 0.0 % [facility] Baso Absolute 0.0 0.0 - 0.1 x10(3)/ L [facility] Immature Gran % 0.90 % [facility] Comment: Immature granulocytes(IG's)percentage and absolute count will include metamyelocytes, myelocytes, and promyelocytes. Blood smears from CBCs yielding IG's will be scanned manually for concordance. If this scan disagrees with the automated IG or if promyelocytes are noted, a manual differential will be performed. Immature Gran Absolute 0.07(H) 0.00 - 0.04 x10(3)/mc L [facility] Blood 05/16/2023 4:20 AM EDT 05/16/2023 4:29 AM EDT Narrative Resulting Agency Comment Spec In Lab James Agustin MD HEMATOLOGY ORDER JODIE [facility] [address] * (ABNORMAL) Hemogram (05/16/2023 4:20 AM EDT) White Blood Cell 7.4 4.0 - 9.5 x10(3)/mc L [facility] Red Blood Cell 2.40(L) 4.00 - 5.21 x10(6)/ L [facility] Hemoglobin 7.8(L) 11.7 - 15.5 g/dL [facility] Hematocrit 22.5(L) 35.7 - 45.8 % [facility] Mean Cell Volume 93.8 82.6 - 94.4 fL [facility] Mean Cell Hemoglobin 32.5(H) 27.1 - 32.0 pg [facility] Mean Cell Hemoglobin Concentration 34.7 31.7 - 35.0 g/dL [facility] Platelet 120(L) 145 - 357 x10(3)/mc L [facility] RDW Standard Deviation 42.9 37.0 - 46.0 fL [facility] RDW coefficient of variation 12.9 11.5 - 14.1 % [facility] Mean Platelet Volume 11.3 7.6 - 12.9 fL [facility] NRBC% auto 0.7 % [facility] NRBC Absolute 0.050(H) 0.000 - 0.000 x10(3)/mc L [facility] Blood 05/16/2023 4:20 AM EDT 05/16/2023 4:29 AM EDT Narrative Resulting Agency Comment Spec In Lab James Agustin MD HEMATOLOGY ORDER JODIE [facility] [address] * (ABNORMAL) Basic Metabolic Panel (non-fasting) (05/16/2023 4:20 AM EDT) Glucose 89 65 - 199 mg/dL [facility] Comment:Diabetes: >=200 mg/d L plus symptoms Blood Urea Nitrogen 108(H) 8 - 18 mg/dL [facility] Creatinine 4.74(H) 0.70 - 1.20 mg/dL [facility] Comment:result rechecked-OLIVA Sodium 132(L) 135 - 145 mmol/L [facility] Potassium 3.9 3.5 - 5.0 mmol/L [facility] Comment: Please note: ??Patients with WBC >100,000 may have falsely elevated Potassium levels. ??For accurate Potassium quantification in these patients send serum separator tube (gold top) for subsequent determinations. ??Contact the Clinical Chemistry Laboratory if there are any questions. Chloride 95(L) 98 - 107 mmol/L [facility] Carbon Dioxide 18(L) 22 - 31 mmol/L [facility] Anion Gap 19(H) 5 - 15 mmol/L [facility] Calcium 9.2 8.5 - 10.5 mg/dL [facility] Est Glomerular Filtration Rate 10(L) >=60 mL/min/1. 73 m?? [facility] Comment: This patient's estimated GFR was [...] Lab Alirio Hudson MD CHEMISTRY ORDERABLE S [facility] [address] * (ABNORMAL) Iron and TIBC (05/16/2023 4:20 AM EDT) Iron 31 30 - 150 mcg/dL [facility] TIBC 259 250 - 450 mcg/dL [facility] Iron Saturation 12(L) 20 - 50 % [facility] Blood 05/16/2023 4:20 AM EDT 05/16/2023 4:29 AM EDT Narrative Resulting Agency Comment Spec In Lab Kristopher Ayoub MD CHEMISTRY ORDERABLES [place] [address] * (ABNORMAL) Basic Metabolic Panel (non-fasting) (05/15/2023 12:50 AM EDT) Glucose 101 65 - 199 mg/dL [facility] Comment:Diabetes: >=200 mg/d L plus symptoms Blood Urea Nitrogen 109(H) 8 - 18 mg/dL [facility] Creatinine 5.62(H) 0.70 - 1.20 mg/dL [facility] Comment:result rechecked-KS Sodium 131(L) 135 - 145 mmol/L [facility] Comment:result rechecked-KS Potassium 3.7 3.5 - 5.0 mmol/L [facility] Comment: result rechecked-KS Please note: ??Patients with WBC >100,000 may have falsely elevated Potassium levels. ??For accurate Potassium quantification in these patients send serum separator tube (gold top) for subsequent determinations. ??Contact the Clinical Chemistry Laboratory if there are any questions. Chloride 92(L) 98 - 107 mmol/L [facility] Comment:result rechecked-KS Carbon Dioxide 18(L) 22 - 31 mmol/L [facility] Comment:result rechecked-KS Anion Gap 21(H) 5 - 15 mmol/L [facility] Calcium 8.9 8.5 - 10.5 mg/dL [facility] Est Glomerular Filtration Rate 8(L) >=60 mL/min/1. 73 m?? [facility] Comment: This patient's estimated GFR was [...] Lab Alirio Hudson MD CHEMISTRY ORDERABLE S [facility] [address] * (ABNORMAL) Hemogram (05/15/2023 12:50 AM EDT) White Blood Cell 9.1 4.0 - 9.5 x10(3)/mc L [facility] Red Blood Cell 2.19(L) 4.00 - 5.21 x10(6)/mc L [facility] Hemoglobin 7.2(L) 11.7 - 15.5 g/dL [facility] Hematocrit 20.6(L) 35.7 - 45.8 % [facility] Mean Cell Volume 94.1 82.6 - 94.4 fL [facility] Mean Cell Hemoglobin 32.9(H) 27.1 - 32.0 pg [facility] Mean Cell Hemoglobin Concentration 35.0 31.7 - 35.0 g/dL [facility] Platelet 109(L) 145 - 357 x10(3)/mc L [facility] RDW Standard Deviation 43.6 37.0 - 46.0 fL [facility] RDW coefficient of variation 12.9 11.5 - 14.1 % [facility] Mean Platelet Volume 10.4 7.6 - 12.9 fL [facility] NRBC% auto 2.1 % [facility] NRBC Absolute 0.190(H) 0.000 - 0.000 x10(3)/mc L [facility] Blood 05/15/2023 12:5 0 AM EDT 05/15/2023 12:52 AM EDT Narrative Resulting Agency Comment Spec In Lab Alirio Hudson MD HEMATOLOGY ORDERABL ES [place] [address] * (ABNORMAL) BLOOD GAS 2 VENOUS (05/15/2023 12:49 AM EDT) pH, Venous 7.33 7.32 - 7.42 [facility] PCO2, Venous 37(L) 41 - 51 mmHg [facility] PO2, Venous 34 25 - 40 mmHg [facility] Bicarbonate, Venous 19.1 mmol/L [facility] Base Excess, Venous -6.8 mmol/L [facility] Hgb Blood Gas 10.8(L) 11.7 - 15.5 g/dL [facility] Oxyhemoglobin, Venous 58.1 % [facility] Carboxyhemoglob in, Venous 0.3 % [facility] Comment: Nonsmokers: 0.5-1.5% COHB Smokers: Variable, but usually less than 10% Toxic: 20-30% COHB Lethal: Greater than 60% COHB Methemoglobin, Venous 0.6 <=1.5 % [facility] Na Whole Blood 136 135 - 145 mmol/L [facility] K Whole Blood 3.7 3.5 - 5.0 mmol/L [facility] Comment: Please note: Patients with WBC >100,000 may have falsely elevated Potassium levels. Contact the Clinical Chemistry Laboratory if there are any questions. ICa Whole Blood 1.12(L) 1.15 - 1.33 mmol/L [facility] Comment: Note: ??Total bilirubin higher than 20 mg/dL may lead to falsely low ionized calcium. CL Whole Blood 95(L) 98 - 107 mmol/L [facility] Gluc Whole Bld 101 65 - 199 mg/dL [facility] Comment:Diabetes: >=200 mg/d L plus symptoms Lactate WB 1.3 0.5 - 2.2 mmol/L [facility] Flow, Mike 1.0 LPM [facility] Blood Gas Source Venous [facility] Blood 05/15/2023 12:4 9 AM EDT 05/15/2023 12:49 AM EDT Alirio Hudson MD POINT OF CARE TEST ORDERABLES Performing Organization Address City/State/[facility] Co de Phone Number [place] [address] * US Retroperitoneal Complete (05/14/2023 3:53 PM [...] who have questions, please contact the health dog day care attendant that requested your imaging first. ? Hayden Robledo, Staff Physician Electronically Signed Final Report ?? 05/14/2023 04:39 pm Narrative 05/14/2023 4:39 PM EDT Renal ? (Signed Final 05/14/2023 04:39 pm) PATIENT INFO: ID #: ? [id number] ?: ??55 (67 yrs)(F) Name: ? PURNIMA Mejias KIRSTIE ?Visit Date: 05/14/2023 03:44 pm PERFORMED BY: Attending: ?Meena CULP, Hayden Stafford Resident: ? Anand Camejo MD Performed By: ? Consuelo Tello RDMS Referred By: ?ALIRIO Powell BECCA Location: ? [place] SERVICE(S) PROVIDED: URETRO - Retroperitoneal Complete - [id number] ? [id number] INDICATIONS: EVANS COMPARISON: CT: Abdomen/Pelvis 05/11/23 RIGHT [...] 05/14/2023 04:39 pm) PATIENT INFO: ID #: [id number] : 55 (67 yrs)(F) Name: PURNIMA THACKER Visit Date: 05/14/2023 03:44 pm PERFORMED BY: Attending: Hayden Robledo MD Resident: Anand Camejo MD Performed By: Consuelo Tello RDMS Referred By: ALIRIO HUDSON Location: [place] SERVICE(S) PROVIDED: URETRO - Retroperitoneal Complete - [id number] INDICATIONS: EVANS COMPARISON: CT: Abdomen/Pelvis 05/11/23 RIGHT [...] who have questions, please contact the health dog day care attendant that requested your imaging first. Hayden Robledo, Staff Physician Electronically Signed Final Report 05/14/2023 04:39 pm Alirio Hudson MD IMG US GEN ORDERABL ES * CK (05/14/2023 3:17 PM EDT) Creatine Kinase 123 0 - 160 unit/L [facility] Blood 05/14/2023 3:17 PM EDT 05/14/2023 3:31 PM EDT Narrative Resulting Agency Comment Spec In Lab Alirio Hudson MD CHEMISTRY ORDERABLE S Performing Organization Address City/[facility]/ZIP Co de Phone Number [place] [address] * (ABNORMAL) Uric acid (05/14/2023 3:17 PM EDT) Uric Acid 14.9(H) 2.5 - 6.5 mg/dL [facility] Blood 05/14/2023 3:17 PM EDT 05/14/2023 3:31 PM EDT Narrative Resulting Agency Comment Spec In Lab Alirio Hudson MD CHEMISTRY ORDERABLE S Performing Organization Address City/[facility]/ZIP Co de Phone Number [place] [address] * (ABNORMAL) Osmolality (05/14/2023 3:17 PM EDT) Osmolality 311(H) 275 - 295 mOsm/kg [facility] Blood 05/14/2023 3:17 PM EDT 05/14/2023 3:31 PM EDT Narrative Resulting Agency Comment Spec In Lab Alirio Hudson MD CHEMISTRY ORDERABLE S [facility] [address] * (ABNORMAL) Differential, Automated (05/14/2023 1:10 AM EDT) Neutrophil % 87.2 % [facility] Neutrophil Absolute 9.74(H) 1.70 - 6.10 x10(3)/mc L [facility] Lymph % 3.9 % [facility] Lymphocytes Abs 0.4(L) 0.9 - 3.2 x10(3)/mc L [facility] Monocyte % 7.9 % [facility] Monocyte Abs 0.9 0.3 - 0.9 x10(3)/mc L [facility] Eos % 0.0 % [facility] Eosinophils Abs 0.0 0.0 - 0.4 x10(3)/mc L [facility] Basophil % 0.1 % [facility] Baso Absolute 0.0 0.0 - 0.1 x10(3)/mc L [facility] Immature Gran % 0.90 % [facility] Comment: Immature granulocytes(IG's)percentage and absolute count will include metamyelocytes, myelocytes, and promyelocytes. Blood smears from CBCs yielding IG's will be scanned manually for concordance. If this scan disagrees with the automated IG or if promyelocytes are noted, a manual differential will be performed. Immature Gran Absolute 0.10(H) 0.00 - 0.04 x10(3)/mc L [facility] Blood 05/14/2023 1:10 AM EDT 05/14/2023 1:24 AM EDT Narrative Resulting Agency Comment Spec In Lab Bonita TOBAR HEMATOLOGY ORDERABLE S [place] [address] * (ABNORMAL) Hemogram (05/14/2023 1:10 AM EDT) White Blood Cell 11.2(H) 4.0 - 9.5 x10(3)/mc L [facility] Red Blood Cell 2.19(L) 4.00 - 5.21 x10(6)/mc L [facility] Hemoglobin 7.2(L) 11.7 - 15.5 g/dL [facility] Hematocrit 20.3(L) 35.7 - 45.8 % [facility] Mean Cell Volume 92.7 82.6 - 94.4 fL [facility] Mean Cell Hemoglobin 32.9(H) 27.1 - 32.0 pg [facility] Mean Cell Hemoglobin Concentration 35.5(H) 31.7 - 35.0 g/dL [facility] Platelet 112(L) 145 - 357 x10(3)/mc L [facility] RDW Standard Deviation 41.4 37.0 - 46.0 fL [facility] RDW coefficient of variation 12.5 11.5 - 14.1 % [facility] Mean Platelet Volume 10.4 7.6 - 12.9 fL [facility] NRBC% auto 1.5 % [facility] NRBC Absolute 0.170(H) 0.000 - 0.000 x10(3)/ L [facility] Blood 05/14/2023 1:10 AM EDT 05/14/2023 1:24 AM EDT Narrative Resulting Agency Comment Spec In Lab Bonita TOBAR HEMATOLOGY ORDERABLE S Performing Organization Address City/State/[facility] Co de Phone Number [place] [address] * (ABNORMAL) Comprehensive metabolic panel (non-fasting) (05/14/2023 1:10 AM EDT) Pathologist [facility] Glucose 120 65 - 199 mg/dL [facility] Comment:Diabetes: >=200 mg/d L plus symptoms Blood Urea Nitrogen 98(H) 8 - 18 mg/dL [facility] Creatinine 4.80(H) 0.70 - 1.20 mg/dL [facility] Comment:result rechecked-ssc Sodium 132(L) 135 - 145 mmol/L [facility] Potassium 4.1 3.5 - 5.0 mmol/L [facility] Comment: Please note: ??Patients with WBC >100,000 may have falsely elevated Potassium levels. ??For accurate Potassium quantification in these patients send serum separator tube (gold top) for subsequent determinations. ??Contact the Clinical Chemistry Laboratory if there are any questions. Chloride 94(L) 98 - 107 mmol/L [facility] Carbon Dioxide 18(L) 22 - 31 mmol/L [facility] Anion Gap 20(H) 5 - 15 mmol/L [facility] Calcium 8.5 8.5 - 10.5 mg/dL [facility] Protein, Total 5.8(L) 6.1 - 8.0 g/dL [facility] Albumin 3.6 3.2 - 5.2 g/dL [facility] Aspartate Aminotransferase 319(H) 0 - 30 unit/L [facility] Alanine Aminotransferase 437(H) 0 - 30 unit/L [facility] Alkaline Phosphatase 86 35 - 105 unit/L [facility] Bilirubin, Total 0.4 0.2 - 1.3 mg/dL [facility] Est Glomerular Filtration Rate 9(L) >=60 mL/min/1. 73 m?? [facility] Comment: This patient's estimated GFR was [...] Lab Alirio Hudson MD CHEMISTRY ORDERABLE S [facility] [address] * APTT (05/13/2023 10:15 AM EDT) Partial Thromboplastin Time 27 25 - 37 sec [facility] Comment: The PTT is NOT appropriate for heparin monitoring. Use the Anti-Xa level for heparin monitoring (HEP UFH) or LMWH monitoring (HEP LMW). A PTT less than 37 seconds generally indicates adequate hemostasis. Blood 05/13/2023 10:1 5 AM EDT 05/13/2023 10:46 AM EDT Narrative Resulting Agency Comment Spec In Lab Alirio Hudson MD HEMATOLOGY ORDERABL ES Performing Organization Address [facility] de Phone Number [place] [address] * (ABNORMAL) Prothrombin Time (05/13/2023 10:15 AM EDT) Prothrombin Time 14.6(H) 9.4 - 12.5 sec [facility] International Normalization Ratio 1.3 [facility] Comment: An INR <2.0 indicates adequate [...] MD HEMATOLOGY ORDERABL ES Performing Organization Address [facility] Co de Phone Number [place] [address] * EKG 12 Lead (05/13/2023 9:22 AM EDT) Ventricular rate 92 BPM MUSE SYSTEM Atrial Rate 92 BPM MUSE SYSTEM P-R Interval 140 ms MUSE SYSTEM QRS Duration 104 ms MUSE SYSTEM Q-T Interval 384 ms MUSE SYSTEM QTC Calculated (Bezet) 474 ms MUSE SYSTEM Calculated P [place] 33 degrees MUSE SYSTEM Calculated R [place] 41 degrees MUSE SYSTEM Calculated T [place] -35 degrees MUSE SYSTEM INTERPRETATION Sinus rhythm with frequent Premature ventricular complexes Septal infarct , age undetermined ST & T wave abnormality, consider lateral ischemia Abnormal ECG When compared with ECG of 12-MAY-2023 10:10, Premature ventricular complexes are now Present I personally reviewed the tracing and edited the fellows interpretation Confirmed by fellow MD Anitha, Carissa ([id number]) on 05/13/2023 3:25:30 PM Confirmed by Maxx Best ([id number]) on 05/13/2023 8:30:56 PM MUSE SYSTEM 05/13/2023 9:22 AM EDT 05/13/2023 8:30 PM EDT Alirio Hudson MD ECG ORDERABLES [facility] * (ABNORMAL) Differential, Automated (05/13/2023 1:15 AM EDT) Neutrophil % 88.1 % [facility] Neutrophil Absolute 7.62(H) 1.70 - 6.10 x10(3)/mc L [facility] Lymph % 3.1 % [facility] Lymphocytes Abs 0.3(L) 0.9 - 3.2 x10(3)/mc L [facility] Monocyte % 7.9 % [facility] Monocyte Abs 0.7 0.3 - 0.9 x10(3)/mc L [facility] Eos % 0.0 % [facility] Eosinophils Abs 0.0 0.0 - 0.4 x10(3)/mc L [facility] Basophil % 0.1 % [facility] Baso Absolute 0.0 0.0 - 0.1 x10(3)/mc L [facility] Immature Gran % 0.80 % [facility] Comment: Immature granulocytes(IG's)percentage and absolute count will include metamyelocytes, myelocytes, and promyelocytes. Blood smears from CBCs yielding IG's will be scanned manually for concordance. If this scan disagrees with the automated IG or if promyelocytes are noted, a manual differential will be performed. Immature Gran Absolute 0.07(H) 0.00 - 0.04 x10(3)/mc L [facility] Blood 05/13/2023 1:15 AM EDT 05/13/2023 1:29 AM EDT Narrative Resulting Agency Comment Spec In Lab Lorri TOBAR HEMATOLOGY ORDERABLE S [place] [address] * (ABNORMAL) Hemogram (05/13/2023 1:15 AM EDT) White Blood Cell 8.6 4.0 - 9.5 x10(3)/mc L [facility] Red Blood Cell 2.37(L) 4.00 - 5.21 x10(6)/mc L [facility] Hemoglobin 7.8(L) 11.7 - 15.5 g/dL [facility] Hematocrit 22.2(L) 35.7 - 45.8 % [facility] Mean Cell Volume 93.7 82.6 - 94.4 fL [facility] Mean Cell Hemoglobin 32.9(H) 27.1 - 32.0 pg [facility] Mean Cell Hemoglobin Concentration 35.1(H) 31.7 - 35.0 g/dL [facility] Platelet 130(L) 145 - 357 x10(3)/mc L [facility] RDW Standard Deviation 41.7 37.0 - 46.0 fL [facility] RDW coefficient of variation 12.5 11.5 - 14.1 % [facility] Mean Platelet Volume 10.2 7.6 - 12.9 fL [facility] NRBC% auto 0.5 % [facility] NRBC Absolute 0.040(H) 0.000 - 0.000 x10(3)/mc L [facility] Blood 05/13/2023 1:15 AM EDT 05/13/2023 1:29 AM EDT Narrative Resulting Agency Comment Spec In Lab Lorri TOBAR HEMATOLOGY ORDERABLE S Performing Organization Address City/[facility]/ZIP Co de Phone Number [place] [address] * (ABNORMAL) Hepatic Function Panel (05/13/2023 1:15 AM EDT) Protein, Total 5.5(L) 6.1 - 8.0 g/dL [facility] Albumin 3.0(L) 3.2 - 5.2 g/dL [facility] Aspartate Aminotransferase 792(H) 0 - 30 unit/L [facility] Alanine Aminotransferase 903(H) 0 - 30 unit/L [facility] Alkaline Phosphatase 85 35 - 105 unit/L [facility] Bilirubin, Total 0.5 0.2 - 1.3 mg/dL [facility] Bilirubin, Direct 0.3 0.0 - 0.3 mg/dL [facility] Blood 05/13/2023 1:15 AM EDT 05/13/2023 1:29 AM EDT Narrative Resulting Agency Comment Spec In Lab Alirio Hudson MD CHEMISTRY ORDERABLE S Performing Organization Address City/State/[facility] Co de Phone Number [place] [address] * (ABNORMAL) Basic Metabolic Panel (non-fasting) (05/13/2023 1:15 AM EDT) Glucose 107 65 - 199 mg/dL [facility] Comment:Diabetes: >=200 mg/d L plus symptoms Blood Urea Nitrogen 82(H) 8 - 18 mg/dL [facility] Creatinine 3.15(H) 0.70 - 1.20 mg/dL [facility] Comment:result rechecked-OG Sodium 132(L) 135 - 145 mmol/L [facility] Potassium 3.8 3.5 - 5.0 mmol/L [facility] Comment: Please note: ??Patients with WBC >100,000 may have falsely elevated Potassium levels. ??For accurate Potassium quantification in these patients send serum separator tube (gold top) for subsequent determinations. ??Contact the Clinical Chemistry Laboratory if there are any questions. Chloride 95(L) 98 - 107 mmol/L [facility] Carbon Dioxide 20(L) 22 - 31 mmol/L [facility] Anion Gap 17(H) 5 - 15 mmol/L [facility] Calcium 8.3(L) 8.5 - 10.5 mg/dL [facility] Est Glomerular Filtration Rate 16(L) >=60 mL/min/1. 73 m?? [facility] Comment: This patient's estimated GFR was [...] City/State/[facility] Co de Phone Number [place] [address] * (ABNORMAL) BLOOD GAS 2 ARTERIAL (05/12/2023 3:57 PM EDT) pH, Arterial 7.39 7.35 - 7.45 [facility] PCO2, Arterial 33(L) 35 - 45 mmHg [facility] PO2, Arterial 101 85 - 104 mmHg [facility] Bicarbonate, Arterial 19.5(L) 20.0 - 26.0 mmol/L [facility] Base Excess, Arterial -5.5(L) -3.0 - 3.0 mmol/L [facility] Hgb Blood Gas 9.8(L) 11.7 - 15.5 g/dL [facility] Oxyhemoglobin, Arterial 95.2 94.0 - 97.0 % [facility] Carboxyhemoglob in, Arterial 0.2 % [facility] Comment: Nonsmokers: 0.5-1.5% COHB Smokers: Variable, but usually less than 10% Toxic: 20-30% COHB Lethal: Greater than 60% COHB Methemoglobin, Arterial 0.8 <=1.5 % [facility] Na Whole Blood 129(L) 135 - 145 mmol/L [facility] K Whole Blood 3.8 3.5 - 5.0 mmol/L [facility] Comment: Please note: Patients with WBC >100,000 may have falsely elevated Potassium levels. Contact the Clinical Chemistry Laboratory if there are any questions. ICa Whole Blood 1.05(L) 1.15 - 1.33 mmol/L [facility] Comment: Note: ??Total bilirubin higher than 20 mg/dL may lead to falsely low ionized calcium. CL Whole Blood 96(L) 98 - 107 mmol/L [facility] Gluc Whole Bld 178 65 - 199 mg/dL [facility] Comment:Diabetes: >=200 mg/d L plus symptoms. Lactate WB 1.5 0.5 - 2.2 mmol/L [facility] FIO2 Art 40 % [facility] PF Ratio Art 252 [facility] Blood 05/12/2023 3:57 PM EDT 05/12/2023 3:57 PM EDT Alirio Hudson MD POINT OF CARE TEST ORDERABLES Performing Organization Address City/[facility] Co de Phone Number [place] [address] * (ABNORMAL) Coox2 (05/12/2023 2:25 PM EDT) pO2, Coox 37 mmHg [facility] Hgb Blood Gas 9.5(L) 11.7 - 15.5 g/dL [facility] Oxyhemoglobin, Coox 59.9 % [facility] Carboxyhemoglo bin, Coox 0.3 % [facility] Comment: Nonsmokers: 0.5-1.5% COHB Smokers: Variable, but usually less than 10% Toxic: 20-30% COHB Lethal: Greater than 60% COHB Methemoglobin, Coox 0.7 <=1.5 % [facility] Source Coox Mixed Venous [facility] Blood 05/12/2023 2:25 PM EDT 05/12/2023 2:25 PM EDT Alirio Hudson MD POINT OF CARE TEST ORDERABLES Performing Organization Address City/[facility] Co de Phone Number [facility] [place] [address] * (ABNORMAL) BLOOD GAS 2 ARTERIAL (05/12/2023 2:23 PM EDT) pH, Arterial 7.37 7.35 - 7.45 [facility] PCO2, Arterial 36 35 - 45 mmHg [facility] PO2, Arterial 102 85 - 104 mmHg [facility] Bicarbonate, Arterial 20.4 20.0 - 26.0 mmol/L [facility] Base Excess, Arterial -4.8(L) -3.0 - 3.0 mmol/L [facility] Hgb Blood Gas 12.7 11.7 - 15.5 g/dL [facility] Oxyhemoglobin, Arterial 95.4 94.0 - 97.0 % [facility] Carboxyhemoglob in, Arterial 0.3 % [facility] Comment: Nonsmokers: 0.5-1.5% COHB Smokers: Variable, but usually less than 10% Toxic: 20-30% COHB Lethal: Greater than 60% COHB Methemoglobin, Arterial 0.7 <=1.5 % [facility] Na Whole Blood 129(L) 135 - 145 mmol/L [facility] K Whole Blood 3.7 3.5 - 5.0 mmol/L [facility] Comment: Please note: Patients with WBC >100,000 may have falsely elevated Potassium levels. Contact the Clinical Chemistry Laboratory if there are any questions. ICa Whole Blood 1.05(L) 1.15 - 1.33 mmol/L [facility] Comment: Note: ??Total bilirubin higher than 20 mg/dL may lead to falsely low ionized calcium. CL Whole Blood 95(L) 98 - 107 mmol/L [facility] Gluc Whole Bld 168 65 - 199 mg/dL [facility] Comment:Diabetes: >=200 mg/d L plus symptoms. Lactate WB 1.8 0.5 - 2.2 mmol/L [facility] FIO2 Art 40 % [facility] PF Ratio Art 255 [facility] Blood 05/12/2023 2:23 PM EDT 05/12/2023 2:23 PM EDT Alirio Hudson MD POINT OF CARE TEST ORDERABLES [facility] [address] * (ABNORMAL) Troponin (05/12/2023 2:05 PM EDT) Troponin-T, High Sensitivity 1,022(H) <=14 ng/L [facility] Comment: This patient's troponin T concentration [...] troponin value can be found in the [facility] Laboratory Test Catalog Troponin - [facility] Laboratory Test Catalog Reference: Fourth [place] Definition of Myocardial Infarction. Journal of the [place] [employer] 2018;72:6486-6207 Blood 05/12/2023 2:05 PM EDT 05/12/2023 2:14 PM EDT Narrative Resulting Agency Comment Spec In Lab Alirio Hudson MD CHEMISTRY ORDERABLE S [place] [address] * (ABNORMAL) Hemoglobin (05/12/2023 2:05 PM EDT) Hemoglobin 8.5(L) 11.7 - 15.5 g/dL [facility] Blood 05/12/2023 2:05 PM EDT 05/12/2023 2:14 PM EDT Narrative Resulting Agency Comment Spec In Lab Alirio Hudson MD HEMATOLOGY ORDERABL ES Performing Organization Address [facility] Co de Phone Number [place] [address] * Potassium (05/12/2023 2:05 PM EDT) Potassium 3.9 3.5 - 5.0 mmol/L [facility] Comment: Please note: ??Patients with WBC [...] MD CHEMISTRY ORDERABLE S Performing Organization Address [facility] Co de Phone Number [place] [address] * (ABNORMAL) BLOOD GAS 2 ARTERIAL (05/12/2023 11:05 AM EDT) pH, Arterial 7.34(L) 7.35 - 7.45 [facility] PCO2, Arterial 42 35 - 45 mmHg [facility] PO2, Arterial 73(L) 85 - 104 mmHg [facility] Bicarbonate, Arterial 22.1 20.0 - 26.0 mmol/L [facility] Base Excess, Arterial -3.6(L) -3.0 - 3.0 mmol/L [facility] Hgb Blood Gas 9.3(L) 11.7 - 15.5 g/dL [facility] Oxyhemoglobin, Arterial 89.3(L) 94.0 - 97.0 % [facility] Carboxyhemoglob in, Arterial 0.2 % [facility] Comment: Nonsmokers: 0.5-1.5% COHB Smokers: Variable, but usually less than 10% Toxic: 20-30% COHB Lethal: Greater than 60% COHB Methemoglobin, Arterial 0.9 <=1.5 % [facility] Na Whole Blood 131(L) 135 - 145 mmol/L [facility] K Whole Blood 3.8 3.5 - 5.0 mmol/L [facility] Comment: Please note: Patients with WBC >100,000 may have falsely elevated Potassium levels. Contact the Clinical Chemistry Laboratory if there are any questions. ICa Whole Blood 1.04(L) 1.15 - 1.33 mmol/L [facility] Comment: Note: ??Total bilirubin higher than 20 mg/dL may lead to falsely low ionized calcium. CL Whole Blood 96(L) 98 - 107 mmol/L [facility] Gluc Whole Bld 152 65 - 199 mg/dL [facility] Comment:Diabetes: >=200 mg/d L plus symptoms. Lactate WB 2.8(H) 0.5 - 2.2 mmol/L [facility] FIO2 Art 40 % [facility] PF Ratio Art 182 [facility] Blood 05/12/2023 11:0 5 AM EDT 05/12/2023 11:05 AM EDT Alirio Hudson MD POINT OF CARE TEST ORDERABLES Performing Organization Address City/State/[facility] Co de Phone Number [place] [address] * (ABNORMAL) BLOOD GAS 2 ARTERIAL (05/12/2023 10:14 AM EDT) pH, Arterial 7.18(Criti gabrielle) 7.35 - 7.45 [facility] Comment:Noted by panel instrument repairer. PCO2, Arterial 45 35 - 45 mmHg [facility] PO2, Arterial 186(H) 85 - 104 mmHg [facility] Bicarbonate, Arterial 16.2(L) 20.0 - 26.0 mmol/L [facility] Base Excess, Arterial -12.2(L) -3.0 - 3.0 mmol/L [facility] Hgb Blood Gas 10.0(L) 11.7 - 15.5 g/dL [facility] Oxyhemoglobin, Arterial 97.0 94.0 - 97.0 % [facility] Carboxyhemoglob in, Arterial 0.2 % [facility] Comment: Nonsmokers: 0.5-1.5% COHB Smokers: Variable, but usually less than 10% Toxic: 20-30% COHB Lethal: Greater than 60% COHB Methemoglobin, Arterial 0.9 <=1.5 % [facility] Na Whole Blood 129(L) 135 - 145 mmol/L [facility] K Whole Blood 3.6 3.5 - 5.0 mmol/L [facility] Comment: Please note: Patients with WBC >100,000 may have falsely elevated Potassium levels. Contact the Clinical Chemistry Laboratory if there are any questions. ICa Whole Blood 1.10(L) 1.15 - 1.33 mmol/L [facility] Comment: Note: ??Total bilirubin higher than 20 mg/dL may lead to falsely low ionized calcium. CL Whole Blood 97(L) 98 - 107 mmol/L [facility] Gluc Whole Bld 161 65 - 199 mg/dL [facility] Comment:Diabetes: >=200 mg/d L plus symptoms. Lactate WB 3.3(H) 0.5 - 2.2 mmol/L [facility] FIO2 Art 100 % [facility] PF Ratio Art 186 [facility] Blood 05/12/2023 10:1 4 AM EDT 05/12/2023 10:14 AM EDT Alirio Hudson MD POINT OF CARE TEST ORDERABLES Performing Organization Address City/State/[facility] Co de Phone Number [facility] [place] [address] * EKG 12 Lead (05/12/2023 10:10 AM EDT) Ventricular rate 116 BPM MUSE SYSTEM Atrial Rate 116 BPM MUSE SYSTEM P-R Interval 158 ms MUSE SYSTEM QRS Duration 114 ms MUSE SYSTEM Q-T Interval 348 ms MUSE SYSTEM QTC Calculated (Bezet) 483 ms MUSE SYSTEM Calculated P [place] 37 degrees MUSE SYSTEM Calculated R [place] 31 degrees MUSE SYSTEM Calculated T [place] -138 degrees MUSE SYSTEM INTERPRETATION Sinus tachycardia with intermittent aberrant ventricular conduction Possible Left atrial enlargement Incomplete left bundle block Left ventricular hypertrophy with repolarization abnormality ( Sokolow-Orozco , [place] product ) ST & T wave abnormality in Inferolateral leads Abnormal ECG When compared with ECG of 10-MAY-2023 13:16, ST & T wave abnormality is more pronounced in inferolateral leads I personally reviewed the tracing and edited the fellows interpretation Confirmed by fellow MD Anuja, Jim ([id number]) on 05/12/2023 1:04:20 PM Confirmed by MD Villareal Danette ([id number]) on 05/12/2023 9:28:34 PM MUSE SYSTEM 05/12/2023 [...] who have questions please contact the health dog day care attendant that requested your imaging first. ? Narrative 05/12/2023 10:08 AM EDT EXAMINATION: XR CHEST ONE VIEW CLINICAL HISTORY: Post TAVR TECHNIQUE: 1 view of the chest COMPARISON: Chest radiograph from earlier today FINDINGS: Interval placement of endotracheal tube with tip terminating 2 cm above the shira. Interval placement of enteric tube projecting along the expected course of the esophagus and outside the hccrk-gt-pdbx. Interval retraction of right IJ approach pulmonary [...] expected course ofthe esophagus and outside the rgzsy-jj-wjcs. Interval retraction of right IJ approach pulmonary [...] patients who have questions please contactthe health dog day care attendant that requested your imaging first. Alirio Hudson [...] 1955 ? Height: 154 cm ? Account: [id number] Age: 67 yrs ? Weight: 75 kg Gender: Female ?BSA: 1.7 m2 Ordering Physician: RADHA HOLLINS Referring Physician: RADHA HOLLINS Performed By: Dilma Bee RDCS Reason For Study: Guidance for TAVR procedure Exam Location: [facility]. Interpretation Summary PRE TAVR: There is severe [...] mL/m2. POST TAVR: Normal function of the ttbwx-qa-oonjh prosthesis. See below for hemodynamic parameters. Slight improvement in left and right ventricular systolic function. LVEF now 20-25%. No pericardial effusion. See report for additional findings. Procedure Limited - 81892. Doppler - 98228. Color Doppler - 78654. Left Ventricle Left ventricle is of normal [...] Date: 307:33 AMBP: 96/63 mmHg Patient Location: [address] : 1955 Height: 154 cm Account: [id number] Age: 67 yrs Weight: 75 kg Gender: Female BSA: 1.7 m2 Ordering Physician: RADHA HOLLINS Referring Physician: RADHA HOLLINS Performed By: Dilma Bee RDCS Reason For Study: Guidance for TAVR procedure Exam Location: [facility]. Interpretation Summary PRE TAVR: There is severe [...] 28mL/m2. POST TAVR: Normal function of the fepfz-kb-fzocf prosthesis. See belowfor hemodynamic parameters. Slight improvement in left and right ventricularsystolic function. LVEF now 20-25%. No pericardial effusion. See report for additional findings. Procedure Limited - 88047. Doppler - 14079. Color Doppler - 45249. Left Ventricle Left ventricle is of normal [...] 3-5moderate 5 - 6-14large Aneurysmal 15-16diffuse Radha Cardonaekian MD ECHO ORDERABLES * CARDIAC CATHETERIZATION (05/12/2023 9:10 AM EDT) Anatomical Region Laterality Modality Other Narrative 05/12/2023 2:37 PM EDT ?[facility] ? Cardiac Catheterization/Intervention Report ? Patient Name: Kirstie, Purnima M. ? Procedure Date: 05/12/2023 ? A #: [id number] ? Primary Physician: Antelmo Sharma ? Case #: [id number] ? File Name: [id number] ? Catheterization Order Number: [id number] ? [facility] ? Final Report [place], [place] ? Patient Name: ? Purnima M. Kirstie ? ID#: ?[id number] ? : ?1955 ? Procedure Date: ? May 12, 2023 ? Case #: ? [id number] ? Room: ? 6 ? Case [...] Device Deployment ?* Temporary Pacemaker Insertion In Recreation Attendant Supervisor ?* Endotracheal Intubation By Non-Cath Physician ?* [...] guide. ??A premounted 4.00 x 30 mm [place] (MINNA) was ? deployed with a maximum [...] calculated STS risk score was 30.1%. A xycdj-ki-fxapu ?procedure was performed on the pre-existing bioprosthetic stented ?prosthesis. The priority of the zhiez-jr-amcwv procedure was Elective. ?The procedure was performed [...] Lai 3 Ultra RESILIA 23 mm THV (s/g=[id number]) transcatheter ?valve was inserted using standard technique. [...] to nor was it given in the ?wastewater analyst lab analyst. ?Recommended anti-platelet/anti-thrombotic regimen: ?Continue aspirin 81 mg daily for indefinitely. ?These recommendations are made at the time of the intervention. Patient ?and provider preferences or a changing clinical situation may require ?modification of this regimen. Consult [facility] [place] [place] Interventional Cardiology for ?questions. ? Conclusions: ?* [...] regimen. ? Comments: ?Successful right transfemoral TAVR Qtopq-wz-Oehhr with a 23 mm Lai 3 ?THV. [...] insertion-coronary, access site angiography, ?temporary pacemaker in wastewater analyst lab analyst, intubation-non cath physician, vascular ?closure device, transthoracic echo ??and TAVR. Dr. Alirio Hudson M.D. ?performed the left heart catheterization, access site angiography, ?temporary pacemaker in wastewater analyst lab analyst, vascular closure device, transthoracic ?echo , TAVR and CPR during cath. Dr. Lynda Mcgowan M.D. performed the ABG, ?anesthesia and intubation-non cath physician. ? Antelmo Sharma M.D. ? Electronically Signed by: Antelmo Sharma M.D. ? Report Finalized: 05/12/2023 ??14:31 ? Report Last Ammended: 07/01/2023 ??11:30 ? Procedure Note Antelmo Sharma MD - 07/01/2023 [facility] Cardiac Catheterization/Intervention Report Patient Name: Purnima Thacker Procedure Date: 05/12/2023 A #: [id number] Primary Physician: Antelmo Sharma Case #: [id number] File Name: [id number] Catheterization Order Number: [id number] [facility] FinalReport [place], [place] Patient Name: Purnima Thacker ID#:[id number] :1955 Procedure Date: May 12, 2023 Case #: [id number] Room: 6 Case Physicians: Antelmo Sharma M.D. Start: 08:03 Alirio Hudson M.D. Admission:05/08/2023 Lynda Mcgowan M.D. Discharge:05/22/2023 Fellow: Rebekah Tejeda M.D. Referring Physician: Mario Alberto Chin M.D. Procedures: * Coronary Angiography * Left Heart Catheterization * Coronary Stent Insertion * Transcatheter Aortic Valve Replacement * Vascular Closure Device Deployment * Temporary Pacemaker Insertion In Recreation Attendant Supervisor * Endotracheal Intubation By Non-Cath Physician * [...] A premounted 4.00 x 30 mm [place] (MINNA) was deployed with a maximum inflation [...] calculated STS risk score was 30.1%. A dwhkm-os-bnuti procedure was performed on the pre-existing bioprosthetic stented prosthesis. The priority of the dwkiq-gg-xhlah procedure wasElective. The procedure was performed under Moderate sedation performed byLynda Mcgowan M.D. (see anesthesia report for additional details). Alirio Hudson M.D. participated in the case (see Cardiac Surgery reportfor additional details). The TAVR sheath was a 14 Fr Corona eSheath Introducer and theaccess site was femoral. Rapid ventricular pacing was performed. An [place] Lai 3 Ultra RESILIA 23 mm THV (s/n=[id number])transcatheter valve was inserted using standard technique. The [...] prior to nor was it given inthe wastewater analyst lab analyst. Recommended anti-platelet/anti-thrombotic regimen: Continue aspirin 81 mg daily for indefinitely. These recommendations are made at the time of the intervention.Patient and provider preferences or a changing clinical situation mayrequire modification of this regimen. Consult [facility] [place] Interventional Cardiologyfor questions. Conclusions: * Nonobstructive disease [...] this regimen. Comments: Successful right transfemoral TAVR Zfsho-mk-Bsvcw with a 23 mmSapien 3 THV. We [...] insertion-coronary, access site angiography, temporary pacemaker in wastewater analyst lab analyst, intubation-non cath physician,vascular closure device, transthoracic echo and TAVR. Dr. Alirio Hudson M.D. performed the left heart catheterization, access site angiography, temporary pacemaker in wastewater analyst lab analyst, vascular closure device,transthoracic echo , TAVR and CPR during cath. Dr. Lynda Mcgowan M.D. performed theABG, anesthesia and intubation-non cath physician. Antelmo Sharma M.D. Electronically Signed by: Antelmo Sharma M.D. Report Finalized: 05/12/2023 14:31 Report Last Ammended: 07/01/2023 11:30 Antelmo Sharma MD CARDIAC CATH ORDERAB LES * (ABNORMAL) Point of Care Blood Gas Historical (05/12/2023 8:50 AM EDT) pH, POC 7.20(Crit ical) 7.35 - 7.45 [facility] Comment:Critical value OK, C C Lab. pCO2, POC 42 35 - 45 mmHg [facility] pO2, POC 260(H) 85 - 104 mmHg [facility] Base Excess, POC -11.0(L) -3.0 - 3.0 mmol/L [facility] Bicarbonate, POC 16.7(L) 20.0 - 26.0 mmol/L [facility] Sodium, POC 129(L) 135 - 145 mmol/L [facility] POC Potassium 3.8 3.5 - 5.0 mmol/L [facility] Ionized Calcium, POC 1.12(L) 1.15 - 1.33 mmol/L [facility] POC Hematocrit 23.0(L) 34.0 - 45.0 % [facility] POC Calc Hgb 7.8(L) 11.2 - 15.7 g/dL [facility] Comment:The calculation of h emoglobin from hematocrit assumes a normal MCHC. POC Bgas Loc CC Lab [facility] Blood 05/12/2023 8:50 AM EDT 05/13/2023 12:00 PM EDT Alirio Hudson MD CHEMISTRY ORDERABLE S Performing Organization Address City/State/[facility] Co de Phone Number [place] [address] * (ABNORMAL) Point of Care Blood Gas Historical (05/12/2023 8:10 AM EDT) pH, POC 7.27(Crit ical) 7.35 - 7.45 [facility] Comment:Critical value OKYamel C Lab. pCO2, POC 37 35 - 45 mmHg [facility] pO2, POC 29(Critic al) 85 - 104 mmHg [facility] Comment:Critical value OK C C Lab. Base Excess, POC -10.0(L) -3.0 - 3.0 mmol/L [facility] Bicarbonate, POC 16.7(L) 20.0 - 26.0 mmol/L [facility] Sodium, POC 123(L) 135 - 145 mmol/L [facility] POC Potassium 4.0 3.5 - 5.0 mmol/L [facility] Ionized Calcium, POC 1.12(L) 1.15 - 1.33 mmol/L [facility] POC Hematocrit 27.0(L) 34.0 - 45.0 % [facility] POC Calc Hgb 9.2(L) 11.2 - 15.7 g/dL [facility] Comment:The calculation of h emoglobin from hematocrit assumes a normal MCHC. POC Bgas Loc CC Lab [facility] Blood 05/12/2023 8:10 AM EDT 05/13/2023 12:00 PM EDT Alirio Hudson MD CHEMISTRY ORDERABLE S Performing Organization Address [facility]/ZIP Co de Phone Number [place] [address] * (ABNORMAL) Lactate, whole blood, send to lab ([facility] [place] [place] (05/12/2023 7:00 AM EDT) Lactate WB 2.4(H) 0.5 - 2.2 mmol/L [facility] Blood 05/12/2023 7:00 AM EDT 05/12/2023 7:09 AM EDT Narrative Resulting Agency Comment Spec In Lab Radha Hollins MD CHEMISTRY ORDERABL ES Performing Organization Address [facility] Co de Phone Number [place] [address] * (ABNORMAL) Comprehensive metabolic panel (non-fasting) (05/12/2023 6:00 AM EDT) Glucose 167 65 - 199 mg/dL [facility] Comment:Diabetes: >=200 mg/d L plus symptoms Blood Urea Nitrogen 67(H) 8 - 18 mg/dL [facility] Creatinine 2.01(H) 0.70 - 1.20 mg/dL [facility] Sodium 131(L) 135 - 145 mmol/L [facility] Potassium 4.3 3.5 - 5.0 mmol/L [facility] Comment: Please note: ??Patients with WBC >100,000 may have falsely elevated Potassium levels. ??For accurate Potassium quantification in these patients send serum separator tube (gold top) for subsequent determinations. ??Contact the Clinical Chemistry Laboratory if there are any questions. Chloride 97(L) 98 - 107 mmol/L [facility] Carbon Dioxide 14(L) 22 - 31 mmol/L [facility] Anion Gap 20(H) 5 - 15 mmol/L [facility] Calcium 8.6 8.5 - 10.5 mg/dL [facility] Protein, Total 6.3 6.1 - 8.0 g/dL [facility] Albumin 3.5 3.2 - 5.2 g/dL [facility] Aspartate Aminotransferase 1,435(H) 0 - 30 unit/L [facility] Alanine Aminotransferase 1,174(H) 0 - 30 unit/L [facility] Alkaline Phosphatase 100 35 - 105 unit/L [facility] Bilirubin, Total 0.9 0.2 - 1.3 mg/dL [facility] Est Glomerular Filtration Rate 27(L) >=60 mL/min/1. 73 m?? [facility] Comment: This patient's estimated GFR was [...] Lab Radha Hollins MD CHEMISTRY ORDERABL ES [facility] [address] * (ABNORMAL) Coox2 (05/12/2023 5:08 AM EDT) pO2, Coox 24 mmHg [facility] Hgb Blood Gas 10.4(L) 11.7 - 15.5 g/dL [facility] Oxyhemoglobin, Coox 30.7 % [facility] Carboxyhemoglo bin, Coox 0.3 % [facility] Comment: Nonsmokers: 0.5-1.5% COHB Smokers: Variable, but usually less than 10% Toxic: 20-30% COHB Lethal: Greater than 60% COHB Methemoglobin, Coox 0.8 <=1.5 % [facility] Source Coox Mixed Venous [facility] Blood 05/12/2023 5:08 AM EDT 05/12/2023 5:08 AM EDT Radha Hollins MD POINT OF CARE TEST ORDERABLES Performing Organization Address [facility] Co de Phone Number [place] [address] * (ABNORMAL) Coox2 (05/12/2023 3:21 AM EDT) pO2, Coox 25 mmHg [facility] Hgb Blood Gas 10.8(L) 11.7 - 15.5 g/dL [facility] Oxyhemoglobin, Coox 32.7 % [facility] Carboxyhemoglo bin, Coox 0.3 % [facility] Comment: Nonsmokers: 0.5-1.5% COHB Smokers: Variable, but usually less than 10% Toxic: 20-30% COHB Lethal: Greater than 60% COHB Methemoglobin, Coox 0.7 <=1.5 % [facility] Source Coox Mixed Venous [facility] Blood 05/12/2023 3:21 AM EDT 05/12/2023 3:21 AM EDT Rahda Hollins MD POINT OF CARE TEST ORDERABLES Performing Organization Address City/[facility] Co de Phone Number [place] [address] * (ABNORMAL) BLOOD GAS 2 ARTERIAL (05/12/2023 3:18 AM EDT) pH, Arterial 7.34(L) 7.35 - 7.45 [facility] PCO2, Arterial 30(L) 35 - 45 mmHg [facility] PO2, Arterial 72(L) 85 - 104 mmHg [facility] Bicarbonate, Arterial 16.0(L) 20.0 - 26.0 mmol/L [facility] Base Excess, Arterial -9.8(L) -3.0 - 3.0 mmol/L [facility] Hgb Blood Gas 11.0(L) 11.7 - 15.5 g/dL [facility] Oxyhemoglobin, Arterial 89.8(L) 94.0 - 97.0 % [facility] Carboxyhemoglob in, Arterial 0.3 % [facility] Comment: Nonsmokers: 0.5-1.5% COHB Smokers: Variable, but usually less than 10% Toxic: 20-30% COHB Lethal: Greater than 60% COHB Methemoglobin, Arterial 0.7 <=1.5 % [facility] Na Whole Blood 131(L) 135 - 145 mmol/L [facility] K Whole Blood 4.2 3.5 - 5.0 mmol/L [facility] Comment: Please note: Patients with WBC >100,000 may have falsely elevated Potassium levels. Contact the Clinical Chemistry Laboratory if there are any questions. ICa Whole Blood 1.12(L) 1.15 - 1.33 mmol/L [facility] Comment: Note: ??Total bilirubin higher than 20 mg/dL may lead to falsely low ionized calcium. CL Whole Blood 100 98 - 107 mmol/L [facility] Gluc Whole Bld 160 65 - 199 mg/dL [facility] Comment:Diabetes: >=200 mg/d L plus symptoms. Lactate WB 2.7(H) 0.5 - 2.2 mmol/L [facility] Flow Art 5.0 LPM [facility] Blood 05/12/2023 3:18 AM EDT 05/12/2023 3:18 AM EDT Radha Hollins MD POINT OF CARE TEST ORDERABLES [facility] [place] [place] [address] * (ABNORMAL) Coox2 (05/12/2023 1:14 AM EDT) pO2, Coox 28 mmHg [facility] Hgb Blood Gas 10.9(L) 11.7 - 15.5 g/dL [facility] Oxyhemoglobin, Coox 37.3 % [facility] Carboxyhemoglo bin, Coox 0.3 % [facility] Comment: Nonsmokers: 0.5-1.5% COHB Smokers: Variable, but usually less than 10% Toxic: 20-30% COHB Lethal: Greater than 60% COHB Methemoglobin, Coox 0.5 <=1.5 % [facility] Source Coox Mixed Venous [facility] Blood 05/12/2023 1:14 AM EDT 05/12/2023 1:14 AM EDT Radha Hollins MD POINT OF CARE TEST ORDERABLES [facility] [place] [address] * (ABNORMAL) BLOOD GAS 2 ARTERIAL (05/12/2023 1:06 AM EDT) pH, Arterial 7.34(L) 7.35 - 7.45 [facility] PCO2, Arterial 30(L) 35 - 45 mmHg [facility] PO2, Arterial 81(L) 85 - 104 mmHg [facility] Bicarbonate, Arterial 15.7(L) 20.0 - 26.0 mmol/L [facility] Base Excess, Arterial -10.1(L) -3.0 - 3.0 mmol/L [facility] Hgb Blood Gas 11.0(L) 11.7 - 15.5 g/dL [facility] Oxyhemoglobin, Arterial 92.3(L) 94.0 - 97.0 % [facility] Carboxyhemoglob in, Arterial 0.2 % [facility] Comment: Nonsmokers: 0.5-1.5% COHB Smokers: Variable, but usually less than 10% Toxic: 20-30% COHB Lethal: Greater than 60% COHB Methemoglobin, Arterial 0.6 <=1.5 % [facility] Na Whole Blood 131(L) 135 - 145 mmol/L [facility] K Whole Blood 4.2 3.5 - 5.0 mmol/L [facility] Comment: Please note: Patients with WBC >100,000 may have falsely elevated Potassium levels. Contact the Clinical Chemistry Laboratory if there are any questions. ICa Whole Blood 1.13(L) 1.15 - 1.33 mmol/L [facility] Comment: Note: ??Total bilirubin higher than 20 mg/dL may lead to falsely low ionized calcium. CL Whole Blood 99 98 - 107 mmol/L [facility] Gluc Whole Bld 132 65 - 199 mg/dL [facility] Comment:Diabetes: >=200 mg/d L plus symptoms. Lactate WB 2.7(H) 0.5 - 2.2 mmol/L [facility] Flow Art 5.0 LPM [facility] Blood 05/12/2023 1:06 AM EDT 05/12/2023 1:06 AM EDT Radha Hollins MD POINT OF CARE TEST ORDERABLES [place] [address] * (ABNORMAL) Differential, Automated (05/12/2023 1:05 AM EDT) Neutrophil % 83.3 % [facility] Neutrophil Absolute 7.49(H) 1.70 - 6.10 x10(3)/mc L [facility] Lymph % 7.1 % [facility] Lymphocytes Abs 0.6(L) 0.9 - 3.2 x10(3)/mc L [facility] Monocyte % 8.9 % [facility] Monocyte Abs 0.8 0.3 - 0.9 x10(3)/mc L [facility] Eos % 0.0 % [facility] Eosinophils Abs 0.0 0.0 - 0.4 x10(3)/mc L [facility] Basophil % 0.1 % [facility] Baso Absolute 0.0 0.0 - 0.1 x10(3)/mc L [facility] Immature Gran % 0.60 % [facility] Comment: Immature granulocytes(IG's)percentage and absolute count will include metamyelocytes, myelocytes, and promyelocytes. Blood smears from CBCs yielding IG's will be scanned manually for concordance. If this scan disagrees with the automated IG or if promyelocytes are noted, a manual differential will be performed. Immature Gran Absolute 0.05(H) 0.00 - 0.04 x10(3)/mc L [facility] Blood 05/12/2023 1:05 AM EDT 05/12/2023 1:15 AM EDT Narrative Resulting Agency Comment Spec In Lab Gianni Fletcher MD HEMATOLOGY ORDERABLE S Performing Organization Address City/[facility]/ZIP Co de Phone Number [place] [address] * (ABNORMAL) Hemogram (05/12/2023 1:05 AM EDT) White Blood Cell 9.0 4.0 - 9.5 x10(3)/[facility] Red Blood Cell 3.01(L) 4.00 - 5.21 x10(6)/[facility] Hemoglobin 9.8(L) 11.7 - 15.5 g/dL [facility] Hematocrit 28.7(L) 35.7 - 45.8 % [facility] Mean Cell Volume 95.3(H) 82.6 - 94.4 fL [facility] Mean Cell Hemoglobin 32.6(H) 27.1 - 32.0 pg [facility] Mean Cell Hemoglobin Concentration 34.1 31.7 - 35.0 g/dL [facility] Platelet 186 145 - 357 x10(3)/ L [facility] RDW Standard Deviation 43.7 37.0 - 46.0 fL [facility] RDW coefficient of variation 12.7 11.5 - 14.1 % [facility] Mean Platelet Volume 10.3 7.6 - 12.9 fL [facility] NRBC% auto 0.0 % [facility] NRBC Absolute 0.000 0.000 - 0.000 x10(3)/mc L [facility] Blood 05/12/2023 1:05 AM EDT 05/12/2023 1:15 AM EDT Narrative Resulting Agency Comment Spec In Lab Gianni Fletcher MD HEMATOLOGY ORDERABLE S Performing Organization Address City/[facility]/ZIP Co de Phone Number [place] [address] * (ABNORMAL) Comprehensive metabolic panel (non-fasting) (05/12/2023 1:05 AM EDT) Glucose 141 65 - 199 mg/dL [facility] Comment:Diabetes: >=200 mg/d L plus symptoms Blood Urea Nitrogen 63(H) 8 - 18 mg/dL [facility] Creatinine 1.86(H) 0.70 - 1.20 mg/dL [facility] Sodium 131(L) 135 - 145 mmol/L [facility] Potassium 4.4 3.5 - 5.0 mmol/L [facility] Comment: Please note: ??Patients with WBC >100,000 may have falsely elevated Potassium levels. ??For accurate Potassium quantification in these patients send serum separator tube (gold top) for subsequent determinations. ??Contact the Clinical Chemistry Laboratory if there are any questions. Chloride 96(L) 98 - 107 mmol/L [facility] Carbon Dioxide 14(L) 22 - 31 mmol/L [facility] Anion Gap 21(H) 5 - 15 mmol/L [facility] Calcium 9.0 8.5 - 10.5 mg/dL [facility] Protein, Total 6.6 6.1 - 8.0 g/dL [facility] Albumin 3.9 3.2 - 5.2 g/dL [facility] Aspartate Aminotransferase 1,227(H) 0 - 30 unit/L [facility] Alanine Aminotransferase 1,097(H) 0 - 30 unit/L [facility] Alkaline Phosphatase 108(H) 35 - 105 unit/L [facility] Bilirubin, Total 1.0 0.2 - 1.3 mg/dL [facility] Est Glomerular Filtration Rate 29(L) >=60 mL/min/1. 73 m?? [facility] Comment: This patient's estimated GFR was [...] Lab Radha Hollins MD CHEMISTRY ORDERABL ES [place] [address] * XR Chest One View (05/12/2023 1:00 [...] who have questions please contact the health dog day care attendant that requested your imaging first. ? Narrative [...] patients who have questions please contactthe health dog day care attendant that requested your imaging first. Radha Hollins MD IMG DX ORDERABLES * (ABNORMAL) Coox2 (05/12/2023 12:30 AM EDT) pO2, Coox 22 mmHg [facility] Hgb Blood Gas 10.9(L) 11.7 - 15.5 g/dL [facility] Oxyhemoglobin, Coox 25.1 % [facility] Carboxyhemoglo bin, Coox 0.3 % [facility] Comment: Nonsmokers: 0.5-1.5% COHB Smokers: Variable, but usually less than 10% Toxic: 20-30% COHB Lethal: Greater than 60% COHB Methemoglobin, Coox 1.4 <=1.5 % [facility] Source Coox Mixed Venous [facility] Blood 05/12/2023 12:3 0 AM EDT 05/12/2023 12:30 AM EDT Radha Hollins MD POINT OF CARE TEST ORDERABLES [facility] [place] [address] * XR Chest One View (05/11/2023 11:45 [...] who have questions please contact the health dog day care attendant that requested your imaging first. ? Narrative [...] patients who have questions please contactthe health dog day care attendant that requested your imaging first. Radha Hollins MD IMG DX ORDERABLES * (ABNORMAL) Lactate, whole blood, send to lab ([facility] [place] [place] (05/11/2023 7:40 PM EDT) Lactate WB 4.8(Critic al) 0.5 - 2.2 mmol/L [facility] Comment:Called by: [facility], Read back by: Magdalena Baires, Date/Time:05/11/23 19:54. Blood 05/11/2023 7:40 PM EDT 05/11/2023 7:49 PM EDT Narrative Resulting Agency Comment Spec In Lab Radha Hollins MD CHEMISTRY ORDERABL ES Performing Organization Address [facility] [place] [address] * Urine culture (05/11/2023 7:22 PM EDT) Urine Culture 50,000-99,000 cfu/ml Normal mucosal herman Susceptibilit y testing not routinely performed for Coagulase Negative Staphylococcu s species and other Gram Positive organisms from urine. [facility] Clean Catch Urine 05/11/2023 7:22 PM EDT 05/11/2023 8:50 PM EDT Narrative Resulting Agency Comment Spec In Lab Brody Kaplan APRN MICROBIOLOGY - GENE RAL ORDERABLES Performing Organization Address [facility] Phone Number [place] [address] * (ABNORMAL) Urinalysis Microscopic Exam (05/11/2023 7:22 PM EDT) RBC, Urine 2 0 - 4 /HPF [facility] WBC, Urine >100(H) 0 - 5 /HPF [facility] Bacteria, Urine Occasional (A) None /HPF [facility] Squamous Epithelial Cells Raw Data, Urine 5(H) <=4 /HPF [facility] Hyaline Casts, Urine 3(H) 0 - 2 /LPF [facility] Clean Catch Urine 05/11/2023 7:22 PM EDT 05/11/2023 7:31 PM EDT Narrative Resulting Agency Comment Spec In Lab Brody Kaplan APRN URINE ORDERABLES Performing Organization Address [facility] Co de Phone Number [place] [address] * (ABNORMAL) Urinalysis with reflex Culture (05/11/2023 7:22 PM EDT) Glucose, Urine Dipstick Negative Negative mg/dL [facility] Protein, Urine Dipstick Trace(A) Negative mg/dL [facility] Bilirubin, Urine Dipstick Negative Negative mg/dL [facility] Comment: Clinical correlation required for positive Urine Bilirubin results as false positive may occur with some drugs and drug related products. If a false positive is suspected a serum total bilirubin should be considered if clinically indicated. Urobilinogen, Urine Dipstick Normal Normal mg/dL [facility] pH, Urn (dipstick) 5.0 5.0 - 8.0 [facility] Blood, Urine Dipstick Trace(A) Negative mg/dL [facility] Ketone, Urine Dipstick Negative Negative mg/dL [facility] Nitrite, Urine Dipstick Negative Negative [facility] Leukocytes, Urine Dipstick Moderate(A) Negative mcL [facility] Appearance, Urine Dipstick Cloudy(A) Clear [facility] Specific [place] Urine Automated >=1.030(A) 1.005 - 1.030 [facility] Color, Urine Dipstick Yellow Yellow [facility] Reflex to Culture Yes [facility] Clean Catch Urine 05/11/2023 7:22 PM EDT 05/11/2023 7:31 PM EDT Narrative Resulting Agency Comment Spec In Lab Brody Kaplan APRN URINE ORDERABLES Performing Organization Address [facility] Co de Phone Number [place] [address] * (ABNORMAL) pro-Brain Natriuretic Peptide (05/11/2023 7:11 PM EDT) NT-proBNP >35,000(H) <=124 pg/mL [facility] Blood 05/11/2023 7:11 PM EDT 05/11/2023 7:26 PM EDT Narrative Resulting Agency Comment Spec In Lab Radha Hollins MD CHEMISTRY ORDERABL ES Performing Organization Address City/[facility] Co de Phone Number [place] [address] * (ABNORMAL) Lactate, whole blood, send to lab ([facility] [place]) (05/11/2023 2:47 PM EDT) Lactate WB 2.9(H) 0.5 - 2.2 mmol/L [facility] Blood 05/11/2023 2:47 PM EDT 05/11/2023 2:53 PM EDT Narrative Resulting Agency Comment Spec In Lab Juan Luis Gonzalez MD CHEMISTRY ORDERABLES [facility] [place] [address] * (ABNORMAL) CT Angiogram Abdomen & Pelvis [...] who have questions please contact the health dog day care attendant that requested your imaging first. ? Narrative [...] who have questions please contact the health dog day care attendant that requested your imaging first. ? Narrative [...] 610 mm2 Circumference: 88 mm Calcification: Mild [id number]-wl-[id number] height: Left: 6.2 mm Right: 5.8 mm THORACIC AORTA Description: Normal course and caliber. ??Mild diffuse atherosclerotic changes. No acute aortopathy noted. Retail Merchandising Coordinator dimensions: Aortic root: 27.6 mm Max ascending aorta: 30.5 mm x 27.7 mm Suggested fluoroscopic angulation based on line extending through the nadirs of the three sinuses of Valsalva, set equidistant: ?? IVORIAN ??9 degrees; cranial 7 degrees MITRAL: Mitral [...] 610 mm2 Circumference: 88 mm Calcification: Mild Dnyrpbm-[id number] height: Left: 6.2 mm Right: 5.8 mm THORACIC AORTA Description: Normal course and caliber. Mild diffuse atheroscleroticchanges. No acute aortopathy noted. Retail Merchandising Coordinator dimensions: Aortic root: 27.6 mm Max ascending aorta: 30.5 mm x 27.7 mm Suggested fluoroscopic angulation based on line extending through thenadirs of the three sinuses of Valsalva, set equidistant: IVORIAN 9 degrees; cranial 7 degrees MITRAL: Mitral [...] patients who have questions please contactthe health dog day care attendant that requested your imaging first. Antelmo Sharma MD IMG CT ORDERABLES * (ABNORMAL) Lactate, whole blood, send to lab ([facility] [place] [place] (05/11/2023 9:29 AM EDT) Lactate WB 3.1(H) 0.5 - 2.2 mmol/L [facility] Blood 05/11/2023 9:29 AM EDT 05/11/2023 9:38 AM EDT Narrative Resulting Agency Comment Spec In Lab Juan Luis Gonzalez MD CHEMISTRY ORDERABLES Performing Organization Address City/State/[facility] Co de Phone Number [place] [address] * (ABNORMAL) Differential, Automated (05/11/2023 4:42 AM EDT) Neutrophil % 78.1 % [facility] Neutrophil Absolute 5.46 1.70 - 6.10 x10(3)/mc L [facility] Lymph % 10.6 % [facility] Lymphocytes Abs 0.7(L) 0.9 - 3.2 x10(3)/mc L [facility] Monocyte % 9.6 % [facility] Monocyte Abs 0.7 0.3 - 0.9 x10(3)/mc L [facility] Eos % 0.0 % [facility] Eosinophils Abs 0.0 0.0 - 0.4 x10(3)/mc L [facility] Basophil % 0.4 % [facility] Baso Absolute 0.0 0.0 - 0.1 x10(3)/mc L [facility] Immature Gran % 1.30 % [facility] Comment: Immature granulocytes(IG's)percentage and absolute count will include metamyelocytes, myelocytes, and promyelocytes. Blood smears from CBCs yielding IG's will be scanned manually for concordance. If this scan disagrees with the automated IG or if promyelocytes are noted, a manual differential will be performed. Immature Gran Absolute 0.09(H) 0.00 - 0.04 x10(3)/mc L [facility] Blood 05/11/2023 4:42 AM EDT 05/11/2023 4:49 AM EDT Narrative Resulting Agency Comment Spec In Lab Klaudia Reid MD HEMATOLOGY OR DERABLES [place] [address] * (ABNORMAL) Hemogram (05/11/2023 4:42 AM EDT) White Blood Cell 7.0 4.0 - 9.5 x10(3)/mc L [facility] Red Blood Cell 3.44(L) 4.00 - 5.21 x10(6)/mc L [facility] Hemoglobin 11.1(L) 11.7 - 15.5 g/dL [facility] Hematocrit 32.7(L) 35.7 - 45.8 % [facility] Mean Cell Volume 95.1(H) 82.6 - 94.4 fL [facility] Mean Cell Hemoglobin 32.3(H) 27.1 - 32.0 pg [facility] Mean Cell Hemoglobin Concentration 33.9 31.7 - 35.0 g/dL [facility] Platelet 165 145 - 357 x10(3)/mc L [facility] RDW Standard Deviation 43.1 37.0 - 46.0 fL [facility] RDW coefficient of variation 12.7 11.5 - 14.1 % [facility] Mean Platelet Volume 10.1 7.6 - 12.9 fL [facility] NRBC% auto 0.0 % [facility] NRBC Absolute 0.000 0.000 - 0.000 x10(3)/mc L [facility] Blood 05/11/2023 4:42 AM EDT 05/11/2023 4:49 AM EDT Narrative Resulting Agency Comment Spec In Lab Klaudia Reid MD HEMATOLOGY OR DERABLES Performing Organization Address [facility] Co de Phone Number [place] [address] * Heparin (unfractionated) Level (05/11/2023 4:42 AM EDT) UF Heparin 0.46 IU/mL [facility] Comment: Heparin (anti-Xa) levels should be [...] MD HEMATOLOGY ORDERAB LES Performing Organization Address [facility] Co de Phone Number [place] [address] * (ABNORMAL) Comprehensive metabolic panel (non-fasting) (05/11/2023 4:42 AM EDT) Glucose 143 65 - 199 mg/dL [facility] Comment:Diabetes: >=200 mg/d L plus symptoms Blood Urea Nitrogen 42(H) 8 - 18 mg/dL [facility] Creatinine 1.24(H) 0.70 - 1.20 mg/dL [facility] Sodium 134(L) 135 - 145 mmol/L [facility] Potassium 4.6 3.5 - 5.0 mmol/L [facility] Comment: Please note: ??Patients with WBC >100,000 may have falsely elevated Potassium levels. ??For accurate Potassium quantification in these patients send serum separator tube (gold top) for subsequent determinations. ??Contact the Clinical Chemistry Laboratory if there are any questions. Chloride 99 98 - 107 mmol/L [facility] Carbon Dioxide 14(L) 22 - 31 mmol/L [facility] Anion Gap 21(H) 5 - 15 mmol/L [facility] Calcium 9.6 8.5 - 10.5 mg/dL [facility] Protein, Total 7.2 6.1 - 8.0 g/dL [facility] Albumin 3.7 3.2 - 5.2 g/dL [facility] Aspartate Aminotransferase 144(H) 0 - 30 unit/L [facility] Comment:result rechecked-ssc Alanine Aminotransferase 130(H) 0 - 30 unit/L [facility] Comment:result rechecked-ssc Alkaline Phosphatase 72 35 - 105 unit/L [facility] Bilirubin, Total 0.8 0.2 - 1.3 mg/dL [facility] Est Glomerular Filtration Rate 48(L) >=60 mL/min/1. 73 m?? [facility] Comment: This patient's estimated GFR was [...] Lab Radha Hollins MD CHEMISTRY ORDERABL ES [place] [address] * EKG 12 Lead (05/10/2023 1:16 PM EDT) Ventricular rate 118 BPM MUSE SYSTEM Atrial Rate 118 BPM MUSE SYSTEM P-R Interval 152 ms MUSE SYSTEM QRS Duration 104 ms MUSE SYSTEM Q-T Interval 316 ms MUSE SYSTEM QTC Calculated (Bezet) 442 ms MUSE SYSTEM Calculated P [place] 29 degrees MUSE SYSTEM Calculated R [place] 18 degrees MUSE SYSTEM Calculated T [place] -173 degrees MUSE SYSTEM INTERPRETATION Sinus tachycardia [...] Anterior leads Confirmed by MD Villareal Danette ([id number]) on 05/10/2023 8:47:46 PM MUSE SYSTEM 05/10/2023 1:16 PM EDT 05/10/2023 8:47 PM EDT Juan Luis Gonzalez MD ECG ORDERABLES MUSE SYSTEM * Lactate, whole blood, send to lab ([facility] [place] [place] (05/10/2023 11:52 AM EDT) Lactate WB 1.8 0.5 - 2.2 mmol/L [facility] Blood 05/10/2023 11:5 2 AM EDT 05/10/2023 12:13 PM EDT Narrative Resulting Agency Comment Spec In Lab Juan Luis Gonzalez MD CHEMISTRY ORDERABLES [place] [address] * XR Chest One View (05/10/2023 11:16 [...] who have questions please contact the health dog day care attendant that requested your imaging first. ? Narrative [...] patients who have questions please contactthe health dog day care attendant that requested your imaging first. Juan Luis Gonzalez MD IMG DX ORDERABLES * EKG 12 Lead (05/10/2023 7:59 AM EDT) Ventricular rate 115 BPM MUSE SYSTEM Atrial Rate 115 BPM MUSE SYSTEM P-R Interval 142 ms MUSE SYSTEM QRS Duration 102 ms MUSE SYSTEM Q-T Interval 322 ms MUSE SYSTEM QTC Calculated (Bezet) 445 ms MUSE SYSTEM Calculated P [place] 36 degrees MUSE SYSTEM Calculated R [place] 28 degrees MUSE SYSTEM Calculated T [place] -119 degrees MUSE SYSTEM INTERPRETATION Sinus tachycardia with frequent Premature ventricular complexes and Fusion complexes ST & T wave abnormality, consider lateral ischemia Abnormal ECG When compared with ECG of 08-MAY-2023 15:51, No significant change was found I personally reviewed the tracing and edited the fellows interpretation Confirmed by fellow MD Anitha, Carissa () on 05/11/2023 6:19:54 AM Confirmed by MD Tram, [place] ([id number]) on 05/11/2023 3:18:56 PM MUSE SYSTEM 05/10/2023 7:59 AM EDT 05/11/2023 3:18 PM EDT Radha Hollins MD ECG ORDERABLES MUSE SYSTEM * (ABNORMAL) Differential, Automated (05/10/2023 2:28 AM EDT) Pathologist [facility] Neutrophil % 77.1 % [facility] Neutrophil Absolute 4.01 1.70 - 6.10 x10(3)/mc L [facility] Lymph % 14.0 % [facility] Lymphocytes Abs 0.7(L) 0.9 - 3.2 x10(3)/mc L [facility] Monocyte % 7.7 % [facility] Monocyte Abs 0.4 0.3 - 0.9 x10(3)/mc L [facility] Eos % 0.4 % [facility] Eosinophils Abs 0.0 0.0 - 0.4 x10(3)/mc L [facility] Basophil % 0.4 % [facility] Baso Absolute 0.0 0.0 - 0.1 x10(3)/[facility] Immature Gran % 0.40 % [facility] Comment: Immature granulocytes(IG's)percentage and absolute count will include metamyelocytes, myelocytes, and promyelocytes. Blood smears from CBCs yielding IG's will be scanned manually for concordance. If this scan disagrees with the automated IG or if promyelocytes are noted, a manual differential will be performed. Immature Gran Absolute 0.02 0.00 - 0.04 x10(3)/[facility] Blood 05/10/2023 2:28 AM EDT 05/10/2023 2:57 AM EDT Narrative Resulting Agency Comment Spec In Lab Klaudia Reid MD HEMATOLOGY OR DERABLES Performing Organization Address City/State/[facility] Co de Phone Number [place] [address] * (ABNORMAL) Hemogram (05/10/2023 2:28 AM EDT) White Blood Cell 5.2 4.0 - 9.5 x10(3)/[facility] Red Blood Cell 3.11(L) 4.00 - 5.21 x10(6)/[facility] LABORATORY Hemoglobin 10.2(L) 11.7 - 15.5 g/dL [facility] Hematocrit 30.2(L) 35.7 - 45.8 % [facility] Mean Cell Volume 97.1(H) 82.6 - 94.4 fL [facility] Mean Cell Hemoglobin 32.8(H) 27.1 - 32.0 pg [facility] Mean Cell Hemoglobin Concentration 33.8 31.7 - 35.0 g/dL [facility] Platelet 151 145 - 357 x10(3)/[facility] LABORATORY RDW Standard Deviation 44.9 37.0 - 46.0 fL [facility] RDW coefficient of variation 12.8 11.5 - 14.1 % [facility] Mean Platelet Volume 9.8 7.6 - 12.9 fL [facility] NRBC% auto 0.0 % [facility] NRBC Absolute 0.000 0.000 - 0.000 x10(3)/mc L [facility] Blood 05/10/2023 2:28 AM EDT 05/10/2023 2:57 AM EDT Narrative Resulting Agency Comment Spec In Lab Klaudia Reid MD HEMATOLOGY OR DERABLES Performing Organization Address City/State/[facility] Co de Phone Number [place] [address] * (ABNORMAL) Comprehensive metabolic panel (non-fasting) (05/10/2023 2:28 AM EDT) Glucose 100 65 - 199 mg/dL [facility] Comment:Diabetes: >=200 mg/d L plus symptoms Blood Urea Nitrogen 30(H) 8 - 18 mg/dL [facility] Creatinine 0.90 0.70 - 1.20 mg/dL [facility] Sodium 134(L) 135 - 145 mmol/L [facility] Potassium 4.1 3.5 - 5.0 mmol/L [facility] Comment: Please note: ??Patients with WBC >100,000 may have falsely elevated Potassium levels. ??For accurate Potassium quantification in these patients send serum separator tube (gold top) for subsequent determinations. ??Contact the Clinical Chemistry Laboratory if there are any questions. Chloride 102 98 - 107 mmol/L [facility] Carbon Dioxide 20(L) 22 - 31 mmol/L [facility] Anion Gap 12 5 - 15 mmol/L [facility] Calcium 9.3 8.5 - 10.5 mg/dL [facility] Protein, Total 6.4 6.1 - 8.0 g/dL [facility] Albumin 3.7 3.2 - 5.2 g/dL [facility] Aspartate Aminotransferase 24 0 - 30 unit/L [facility] Alanine Aminotransferase 14 0 - 30 unit/L [facility] Alkaline Phosphatase 70 35 - 105 unit/L [facility] Bilirubin, Total 0.5 0.2 - 1.3 mg/dL [facility] Est Glomerular Filtration Rate 70 >=60 mL/min/1. 73 m?? [facility] Comment: This patient's estimated GFR was [...] MD CHEMISTRY ORDERABL ES Performing Organization Address City/[facility]/ZIP [place] [address] * Heparin (unfractionated) Level (05/10/2023 2:28 AM EDT) UF Heparin 0.37 IU/mL [facility] Comment: Heparin (anti-Xa) levels should be [...] MD HEMATOLOGY ORDERAB LES Performing Organization Address City/[facility]/ZIP Co de Phone Number [place] [address] * (ABNORMAL) Differential, Automated (05/09/2023 4:00 AM EDT) Neutrophil % 81.7 % [facility] Neutrophil Absolute 5.26 1.70 - 6.10 x10(3)/ L [facility] Lymph % 10.7 % [facility] Lymphocytes Abs 0.7(L) 0.9 - 3.2 x10(3)/ L [facility] Monocyte % 6.5 % [facility] Monocyte Abs 0.4 0.3 - 0.9 x10(3)/ L [facility] Eos % 0.5 % [facility] Eosinophils Abs 0.0 0.0 - 0.4 x10(3)/[facility]ORATORY Basophil % 0.3 % [facility] Baso Absolute 0.0 0.0 - 0.1 x10(3)/[facility] LABORATORY Immature Gran % 0.30 % [facility] Comment: Immature granulocytes(IG's)percentage and absolute count will include metamyelocytes, myelocytes, and promyelocytes. Blood smears from CBCs yielding IG's will be scanned manually for concordance. If this scan disagrees with the automated IG or if promyelocytes are noted, a manual differential will be performed. Immature Gran Absolute 0.02 0.00 - 0.04 x10(3)/ L [facility] Blood 05/09/2023 4:00 AM EDT 05/09/2023 4:19 AM EDT Narrative Resulting Agency Comment Spec In Lab Klaudia Reid MD HEMATOLOGY OR DERABLES [place] [address] * (ABNORMAL) Hemogram (05/09/2023 4:00 AM EDT) White Blood Cell 6.4 4.0 - 9.5 x10(3)/mc L [facility] Red Blood Cell 3.15(L) 4.00 - 5.21 x10(6)/[facility]ORATORY Hemoglobin 10.2(L) 11.7 - 15.5 g/dL [facility] Hematocrit 30.3(L) 35.7 - 45.8 % [facility] Mean Cell Volume 96.2(H) 82.6 - 94.4 fL [facility] Mean Cell Hemoglobin 32.4(H) 27.1 - 32.0 pg [facility] Mean Cell Hemoglobin Concentration 33.7 31.7 - 35.0 g/dL [facility] Platelet 151 145 - 357 x10(3)/mc L [facility] RDW Standard Deviation 44.7 37.0 - 46.0 fL [facility] RDW coefficient of variation 12.8 11.5 - 14.1 % [facility] Mean Platelet Volume 9.4 7.6 - 12.9 fL [facility] NRBC% auto 0.0 % [facility] NRBC Absolute 0.000 0.000 - 0.000 x10(3)/mc L [facility] Blood 05/09/2023 4:00 AM EDT 05/09/2023 4:19 AM EDT Narrative Resulting Agency Comment Spec In Lab Klaudia Reid MD HEMATOLOGY OR DERABLES [place] [address] * Heparin (unfractionated) Level (05/09/2023 4:00 AM EDT) UF Heparin 0.47 IU/mL [facility] Comment: Heparin (anti-Xa) levels should [...] Lab Radha Hollins MD HEMATOLOGY ORDERAB LES [facility] [place] [address] * (ABNORMAL) Comprehensive metabolic panel (non-fasting) (05/09/2023 4:00 AM EDT) Glucose 108 65 - 199 mg/dL [facility] Comment:Diabetes: >=200 mg/d L plus symptoms Blood Urea Nitrogen 31(H) 8 - 18 mg/dL [facility] Creatinine 1.03 0.70 - 1.20 mg/dL [facility] Sodium 137 135 - 145 mmol/L [facility] Potassium 4.4 3.5 - 5.0 mmol/L [facility] Comment: Please note: ??Patients with WBC >100,000 may have falsely elevated Potassium levels. ??For accurate Potassium quantification in these patients send serum separator tube (gold top) for subsequent determinations. ??Contact the Clinical Chemistry Laboratory if there are any questions. Chloride 102 98 - 107 mmol/L [facility] Carbon Dioxide 20(L) 22 - 31 mmol/L [facility] Anion Gap 15 5 - 15 mmol/L [facility] Calcium 9.3 8.5 - 10.5 mg/dL [facility] Protein, Total 6.6 6.1 - 8.0 g/dL [facility] Albumin 3.8 3.2 - 5.2 g/dL [facility] Aspartate Aminotransferase 32(H) 0 - 30 unit/L [facility] Alanine Aminotransferase 18 0 - 30 unit/L [facility] Alkaline Phosphatase 78 35 - 105 unit/L [facility] Bilirubin, Total 0.5 0.2 - 1.3 mg/dL [facility] Est Glomerular Filtration Rate 60 >=60 mL/min/1. 73 m?? [facility] Comment: This patient's estimated GFR was [...] MD CHEMISTRY ORDERABL ES Performing Organization Address [facility]/ZIP Co de Phone Number [place] [address] * (ABNORMAL) pro-Brain Natriuretic Peptide (05/08/2023 4:00 PM EDT) NT-proBNP 25,503(H) <=124 pg/mL [facility] Blood Venous Draw / Unknown 05/08/2023 4:00 PM EDT 05/08/2023 4:25 PM EDT Narrative Resulting Agency Comment Spec In Lab Juan Luis Gonzalez MD CHEMISTRY ORDERABLES Performing Organization Address [facility] Co de Phone Number [place] [address] * Magnesium (05/08/2023 4:00 PM EDT) Magnesium 0.82 0.69 - 1.07 mmol/L [facility] Blood 05/08/2023 4:00 PM EDT 05/08/2023 4:06 PM EDT Narrative Resulting Agency Comment Spec In Lab Enrique Chua MD CHEMISTRY ORDERABLES Performing Organization Address [facility] Co de Phone Number [place] [address] * Potassium (05/08/2023 4:00 PM EDT) Potassium 3.9 3.5 - 5.0 mmol/L [facility] Comment: Please note: ??Patients with WBC [...] ORDERABL ES Performing Organization Address [facility] Co de Phone Number [place] [address] * Heparin (unfractionated) Level (05/08/2023 4:00 PM EDT) Pathologist [facility] UF Heparin 0.43 IU/mL [facility] Comment: Heparin (anti-Xa) levels should be [...] MD HEMATOLOGY ORDERAB LES Performing Organization Address [facility] [place] [address] * EKG 12 Lead (05/08/2023 3:51 PM EDT) Ventricular rate 98 BPM MUSE SYSTEM Atrial Rate 98 BPM MUSE SYSTEM P-R Interval 150 ms MUSE SYSTEM QRS Duration 102 ms MUSE SYSTEM Q-T Interval 358 ms MUSE SYSTEM QTC Calculated (Bezet) 457 ms MUSE SYSTEM Calculated P [place] 38 degrees MUSE SYSTEM Calculated R [place] 48 degrees MUSE SYSTEM Calculated T [place] -112 degrees MUSE SYSTEM INTERPRETATION Sinus rhythm with frequent and consecutive Premature ventricular and fusion complexes Septal infarct , age undetermined ST & T wave abnormality, consider anterolateral ischemia Abnormal ECG When compared with ECG of 09-NOV-2022 11:17, T wave inversion now evident in Anterolateral leads Confirmed by MD Harshil, Enrique Bell ([id number]) on 05/10/2023 8:11:46 AM MUSE SYSTEM 05/08/2023 3:51 PM EDT 05/10/2023 8:11 AM EDT Radha Hollins MD ECG ORDERABLES MUSE SYSTEM * (ABNORMAL) Differential, Automated (05/08/2023 11:38 AM EDT) Neutrophil % 71.3 % [facility] Neutrophil Absolute 2.91 1.70 - 6.10 x10(3)/mc L [facility] Lymph % 19.1 % [facility] Lymphocytes Abs 0.8(L) 0.9 - 3.2 x10(3)/mc L [facility] Monocyte % 9.0 % [facility] Monocyte Abs 0.4 0.3 - 0.9 x10(3)/mc L [facility] Eos % 0.2 % [facility] Eosinophils Abs 0.0 0.0 - 0.4 x10(3)/mc L [facility] Basophil % 0.2 % [facility] Baso Absolute 0.0 0.0 - 0.1 x10(3)/mc L [facility] Immature Gran % 0.20 % [facility] Comment: Immature granulocytes(IG's)percentage and absolute count will include metamyelocytes, myelocytes, and promyelocytes. Blood smears from CBCs yielding IG's will be scanned manually for concordance. If this scan disagrees with the automated IG or if promyelocytes are noted, a manual differential will be performed. Immature Gran Absolute 0.01 0.00 - 0.04 x10(3)/mc L [facility] Blood 05/08/2023 11:3 8 AM EDT 05/08/2023 11:44 AM EDT Narrative Resulting Agency Comment Spec In Lab Lincoln Sal MD HEMATOLOGY ORDERA BLES Performing Organization Address City/[facility]/ZIP Co de Phone Number [place] [address] * (ABNORMAL) Hemogram (05/08/2023 11:38 AM EDT) White Blood Cell 4.1 4.0 - 9.5 x10(3)/mc L [facility] Red Blood Cell 3.05(L) 4.00 - 5.21 x10(6)/mc L [facility] Hemoglobin 10.2(L) 11.7 - 15.5 g/dL [facility] Hematocrit 29.6(L) 35.7 - 45.8 % [facility] Mean Cell Volume 97.0(H) 82.6 - 94.4 fL [facility] Mean Cell Hemoglobin 33.4(H) 27.1 - 32.0 pg [facility] Mean Cell Hemoglobin Concentration 34.5 31.7 - 35.0 g/dL [facility] Platelet 136(L) 145 - 357 x10(3)/mc L [facility] RDW Standard Deviation 44.3 37.0 - 46.0 fL [facility] RDW coefficient of variation 12.6 11.5 - 14.1 % [facility] Mean Platelet Volume 9.4 7.6 - 12.9 fL [facility] NRBC% auto 0.0 % [facility] NRBC Absolute 0.000 0.000 - 0.000 x10(3)/mc L [facility] Blood 05/08/2023 11:3 8 AM EDT 05/08/2023 11:44 AM EDT Narrative Resulting Agency Comment Spec In Lab Lincoln Sal MD HEMATOLOGY ORDERA BLES Performing Organization Address City/[facility]/ZIP Co de Phone Number [place] [address] * TSH (05/08/2023 11:38 AM EDT) Thyroid Stimulating Hormone 1.27 0.27 - 4.20 mcIU/mL [facility] Comment: Reference Interval (mcIU/mL): Females: ??First Trimester: 0.23-3.88 ??Second Trimester: 0.22-3.90 ??Third Trimester: 0.44-4.66 Blood 05/08/2023 11:3 8 AM EDT 05/08/2023 11:44 AM EDT Narrative Resulting Agency Comment Spec In Lab Enrique Chua MD CHEMISTRY ORDERABLES Performing Organization Address City/[facility] Co de Phone Number [place] [address] * (ABNORMAL) Phosphorus (05/08/2023 11:38 AM EDT) Phosphorus 4.7(H) 2.5 - 4.5 mg/dL [facility] Blood 05/08/2023 11:3 8 AM EDT 05/08/2023 11:44 AM EDT Narrative Resulting Agency Comment Spec In Lab Enrique Chua MD CHEMISTRY ORDERABLES Performing Organization Address City/[facility] Co de Phone Number [place] [address] * Magnesium (05/08/2023 11:38 AM EDT) Magnesium 0.76 0.69 - 1.07 mmol/L [facility] Blood 05/08/2023 11:3 8 AM EDT 05/08/2023 11:44 AM EDT Narrative Resulting Agency Comment Spec In Lab Enrique Chua MD CHEMISTRY ORDERABLES Performing Organization Address City/[facility] Co de Phone Number [place] [address] * (ABNORMAL) Basic Metabolic Panel (non-fasting) (05/08/2023 11:38 AM EDT) Glucose 97 65 - 199 mg/dL [facility] Comment:Diabetes: >=200 mg/d L plus symptoms Blood Urea Nitrogen 27(H) 8 - 18 mg/dL [facility] Creatinine 1.02 0.70 - 1.20 mg/dL [facility] Sodium 139 135 - 145 mmol/L [facility] Potassium 4.2 3.5 - 5.0 mmol/L [facility] Comment: Please note: ??Patients with WBC >100,000 may have falsely elevated Potassium levels. ??For accurate Potassium quantification in these patients send serum separator tube (gold top) for subsequent determinations. ??Contact the Clinical Chemistry Laboratory if there are any questions. Chloride 105 98 - 107 mmol/L [facility] Carbon Dioxide 20(L) 22 - 31 mmol/L [facility] Anion Gap 14 5 - 15 mmol/L [facility] Calcium 9.4 8.5 - 10.5 mg/dL [facility] Est Glomerular Filtration Rate 60 >=60 mL/min/1. 73 m?? [facility] Comment: This patient's estimated GFR was [...] In Lab Enrique Chua MD CHEMISTRY ORDERABLES [facility] [place] [address] * ECHO COMPLETE (05/08/2023 11:02 AM EDT) EF 25 [facility] SYSTEM Anatomical Region Laterality Modality Cardiac Other 05/08/2023 10:0 3 AM EDT Narrative 05/08/2023 11:51 AM EDT ? Echocardiogram Report Name: PURNIMA THACKER ?Study Date: 05/08/2023 10:03 AMBP: 92/64 mmHg ? Patient Location: [facility]^CV29^A : 1955 ? Height: 155 cm ? Account: [id number] Age: 67 yrs ? Weight: 78 kg Gender: Female ?BSA: 1.8 m2 Ordering Physician: ENRIQUE CHUA Referring Physician: MARIO ALBERTO CHIN Performed By: CHUCKIE Canchola Reason For Study: SAVR Stenosis Exam Location: [facility]. Interpretation Summary -Left ventricle is severely dilated [...] worsening stenosis. Mitral regurgitation is similar. Procedure Complete-[id number]. Satisfactory quality. There is normal sinus rhythm. [...] Study Date: 0:03 AMBP: 92/64 mmHg Patient Location:[facility]^CV29^A : 1955 Height: 155 cm Account: [id number] Age: 67 yrs Weight: 78 kg Gender: Female BSA: 1.8 m2 Ordering Physician: ENRIQUE CHUA Referring Physician: MARIO ALBERTO CHIN Performed By: CHUCKIE Canchola Reason For Study: SAVR Stenosis Exam Location: [facility]. Interpretation Summary -Left ventricle is severely dilated [...] suggestsworsening stenosis. Mitral regurgitation is similar. Procedure Complete-27559. Satisfactory quality. There is normal sinus rhythm. 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 Mild coronary artery disease by [facility] 11/09/2022 Mixed connective tissue disease [...] ejection fraction Mild coronary artery disease by [facility] 11/09/2022 Stenosis of prosthetic aortic [...] mg, Oral, EVERY EVENING, First dose on Wed05/08/23 at 1700, Until Discontinued, Routine Given 05/12/2023 [...] dose on Wed05/12/23 at 1030, Until Discontinued, [place] teeth, Routine Given 05/12/2023 10:04 AM EDT [...] 20 mg, Oral, DAILY, First dose on 05/19/23 at 1715, Until Discontinued, Routine Given 05/22/2023 [...] Until 05/08/23 at 1103, Alisha Norris: mahnaz varela heparin (porcine) 50 units/mL in dextrose 5% 500 mL infusion 0-5,000 Units/hr (0-100 mL/hr), Intravenous, CONTINUOUS, Starting on 05/08/23 at 1045, Until Wed05/12/23 at 0136, Begin infusion at 1,100 units [...] Hours, EVERY 24 HOURS, First dose on 05/16/23 at 1230, Until Discontinued, Apply patch(es) for [...] EVERY 8 HOURS SCHEDULED, First dose on Wed05/16/23 at 0945, Until Discontinued, Routine Given 05/17/2023 5:44 AM EDT 12.5 mg Given 05/16/2023 9:11 PM EDT 12.5 mg Given 05/16/2023 2:07 PM EDT 12.5 mg metoprolol tartrate (Lopressor) tablet 12.5 mg 12.5 mg, Oral, ONCE, 1 dose, On Wed05/17/23 at 1115, Routine Given 05/17/2023 10:44 AM [...] at 0831, Side port TKO rate, per [facility] flush protocol Rate/Dose Verify 05/13/2023 6:00 AM EDT 10 mL/hr 10 mL/hr Rate/Dose Verify 05/13/2023 4:00 AM EDT 10 mL/hr 10 mL/h r Rate/Dose Verify 05/13/2023 2:00 AM EDT 10 mL/hr 10 mL/h r sodium chloride 0.9% infusion 10-30 mL/hr, Intravenous, DAILY PRN, Starting on Wed05/12/23 at 0944, Until Wed05/17/23 at 0831, Side port TKO rate, per [facility] flush protocol. Rate/Dose Verify 05/17/2023 8:00 AM [...] Oral, 2 TIMES DAILY, First dose on 10/11/23 at 2100, Until Discontinued, DO NOT DISCONTINUE [...] Hours, EVERY 24 HOURS, First dose on 05/16/23 at 1230, Until Discontinued, Apply patch(es) for [...] Gabino Calhoun RN)1958 (Stopped - Provider: Favian Mckeon, VALDO) magnesium sulfate 2 g in sterile water 50 mL infusion (COMPLETED) 2 g, Intravenous, ONCE, 1 dose, On Wed05/22/23 at 0630, Administer over 120 Minutes 0615 (New Bag - Provider: Favian Mckeon, RN)0815 (Stopped - Provider: Kia Gallego, VALDO) metoproloL tartrate (Lopressor) tablet 25 mg 25 mg, Oral, EVERY 12 HOURS SCHEDULED (2 times per day), First dose (after last modification) on Wed05/17/23 at 2100, Until Discontinued, Routine 0836 (Given - Provider: Gabino Calhoun RN)2054 (Given - Provider: Favina Mckeon, VALDO) 0832 (Given - Provider: Kia Gallego, RN)2012 (Given - Provider: Favian Mckeon, VALDO) 08 (Given - Provider: Kia Gallego, VALDO) pantoprazole [...] (See Alternative - Provider: Kia Gallego, VALDO) 08 (See Alternative - Provider: Kia Gallego, VALDO) pantoprazole EC (Protonix) tablet 40 mg(Linked Group 2) 40 mg, Oral, DAILY, First dose on Wed05/12/23 at 1030, Until Discontinued, DO NOT CRUSH OR OPEN, Routine 0836 (Given - Provider: Gabino Calhoun RN) 0832 (Given - Provider: Kia Gallego, VALDO) 08 (Given - Provider: Kia Gallego, VALDO) polyethylene glycoL (Miralax) packet 17 g 17 g, Oral, DAILY, First dose (after last modification) on Wed05/17/23 at 0900, Until Discontinued, Routine 0835 (Given - Provider: Gabino Calhoun RN) 0900 (Not Given - Provider: Kia Gallego, VALDO - Reason: Patient/family refused) 0900 (Not Given [...] tablet., Routine 0836 (Given - Provider: Gabino Calhoun, VALDO) potassium chloride ER (Klor-Con M) crystal tablet [...] Discontinued, Routine 0841 (Given - Provider: Gabino Calhoun, VALDO)2053 (Given - Provider: Favian Mckeon RN) 08 (Given - Provider: Kia Gallego, RN)2012 (Given - Provider: Favian Mckeon RN) 08 (Given - Provider: Kia Gallego RN) sodium [...] Gabino Calhoun RN)1738 (Given - Provider: Gabino Calhoun, VALDO) 0130 (Not Given - Provider: Favian Mckeon RN - Reason: See comment)0930 (Not Given - Provider: Kia Gallego RN - Reason: See comment - Comment: duplicate)173 (Given - Provider: Kia Gallego RN) 0130 (Not Given - Provider: Favian Mckeon RN - Reason: Patient/family refused)0930 (Not Given - Provider: Kia Gallego RN - Reason: See comment) spironolactone (Aldactone) tablet 12.5 mg (CANCELED) 12.5 mg, Oral, DAILY, First dose on Wed05/22/23 at 0900, Until Discontinued, DO NOT SPLIT, CRUSH OR OPEN, Routine 08 (Given - Provider: Kia Gallego, VALDO) ticagrelor [...] RN)2053 (Given - Provider: Favian Mckeon RN) 08 (Given - Provider: Kia Gallego, VALDO)2012 (Given - Provider: Favian Mckeon RN) 0827 (Given - Provider: Kia Gallego RN) PRN Medication Order 05/20/2023 05/21/202305/2205/22/2023 acetaminophen (Tylenol) tablet 650 mg 650 mg, Oral, EVERY 6 HOURS PRN, Starting on Marquita 05/20/23 at 1740, Until 05/22/23 at 1246, Pain, Maximum dose of acetaminophen is 4,000 mg from all sources in 24 hours. When ordered for pain, acetaminophen should be given even when other ordered pain medications are indicated., Routine 1758 (Given - Provider: Gabino Calhoun RN)2344 (Given [...] 81 mg, Oral, DAILY, First dose on Wed05/13/23 at 0900, Until Discontinued, Routine Or aspirin suppository 300 mg (CANCELED) 300 mg, Rectal, DAILY, First dose on Wed05/13/23 at 0900, Until Discontinued, Start on post-op [...] Routine documented in this encounter Care Teams Dynamo Tender Relationship Specialty Start Date End Date Magdalena Acosta MD [address] [place] [address] PCP - General Family Medicine 02/05/23 documented as of this encounter
--- OUTSIDE RECORDS SUMMARY | 2024-03-07 14:34 | XMS_ITS | Encounter Summary ---
Author Organization [place] [id number] Care Team Providers Care Ware Server Name Role Phone Magdalena Acosta MD Primary Care Provider [phone] Reason for Visit * Auth/Cert (Routine) Specialty Diagnoses / Procedures Referred By Contac t Referred To Contact Diagnoses Symptomatic severe aortic stenosis with low ejection fraction NSTEMI, CHF Haris Chua MD [facility] [place] [address] [facility] Referral ID Status Reason Start Date Expiration Date Visits Re quested Visits Authorized [id number] 1 1 Encounter Details Date Type Department Care Team (Late st Contact Info) Description 05/12/2023 7:35 AM EDT Anesthesia [place] [address] Lynda Mcgowan MD [facility] [place] [address] Alie Park MD [facility] [place] [address] Anesthesia Record Procedure Summary Procedure Name Responsible [...] cephalic vein (lateral side of arm), left; umtv-[id number]-[id number] catheter system; Anatomical Landmarks; US Not Used; [...] RN LDA Cath/EP Sheath 05/12/23; 0733; 14 Tongan (Fr); Right; Femoral; Arterial 05/12/23 0733 by Guerda Bender, RN 05/12/23 0830 by Guerda Bender RN LDA Cath/EP Sheath 05/12/23; 0734; 6 Tongan (Fr); Right; Femoral; Venous 05/12/23 0734 by Guerda Bender RN 05/12/23 0817 by Guerda Bender RN LDA Cath/EP Sheath 05/12/23; 0734; 7 Tongan (Fr); Left; Femoral; Arterial 05/12/23 0734 by Guerda Bender, RN 05/12/23 0837 by Guerda Bender RN LDA Cath/EP Sheath 05/12/23; 0734; 6 Tongan (Fr); Left; Femoral; Venous 05/12/23 0734 by [...] Procedure Summary Date: 05/12/23 Room / Location: [facility] / [facility] Anesthesia Start: 734 Anesthesia [...] All Anesthesia Providers: Anesthesiologist: Lynda Mcgowan MD [employer] Wigs: Nico Graham MD Vitals Value Taken Time [...] 05/08/2023 ??? Mild coronary artery disease by [facility] 11/09/2022 05/08/2023 ??? Heart failure with [...] IMG S&I N/A 11/09/2022 CORONARY ANGIOGRAPHY; [facility],POSSIBLE PCI (WRVU 5.6) performed by Nitesh Escobedo MD at [facility] ??? PRO AORTOPLAS FOR SUPRAVALV STEN N/A 09/21/2016 @AORTOPLASTY FOR SUPRAVALVULAR STENOSIS (WRVU 29.33) performed by Alirio Esparza MD at [facility] ??? PRO REPLACEMENT PROSTHETIC AORTIC VALVE OPEN W CARDIOPULMONARY BYPASS HOMOGRF/STENT N/A 09/21/2016 @REPLACE AORTIC VALVE, OPEN, W\CPB, W\PROSTHETIC VALVE (WRVU 41.32) performed by Alirio Esparza MD at [facility] Social History Tobacco Use [...] 3 general, with a(n) intravenous induction Add-on vwikg-ch-gsvic TAVR. In cardiogenic shock. Has arterial line, [...] 11:30 AM EST Office [place] [address] Magdalena Peralta MD [facility] [place] [address] 03/01/2025 4:15 PM EDT Office Visit Dermatology at [place] [address] [place] [phone] Marek Bonilla MD [address], [place] [address] documented as of this encounter Visit Diagnoses [...] mL/hr documented in this encounter Care Teams Ware Server Relationship Specialty Start Date End Date Magdalena Acosta MD [address] [place] [address] PCP - General Family Medicine 02/05/23 documented as of this encounter
--- OUTSIDE RECORDS SUMMARY | 2024-03-07 14:35 | XMS_ITS | Encounter Summary ---
Author Organization [facility] [place] [address] Care Team Providers Care Bi Analyst Name Role Phone Magdalena Acosta MD Primary Care Provider [phone] Reason for Referral * Consultation (Routine) - Closed Specialty Diagnoses / Procedures Referred By Contac t Referred To Contact Rheumatology Diagnoses Weakness Kyra Haas MD [facility] [address] [place] [address] [facility] [address] [place] [phone] Referral ID Status Reason Start Date Expiration Date V isits Requested Visits Authorized [id number] Closed Consult, Test & Treat PCP Updated and/or Approved 02/25/2023 02/25/2024 6 6 Encounter Details Date Type Department Care Team (Late st Contact Info) Description 02/25/2023 Transcribe Orders eDH Incoming Referrals [phone] Magdalena Acosta MD [address] [place] [address] Weakness Social History Tobacco Use [...] EST Office [place] [address] Magdalena Peralta MD [facility] [place] [address] 03/01/2025 4:15 PM EDT Office Visit Dermatology at [place] [address] [place] [address] Marek Bonilla MD [address] [place] [address] Scheduled Referrals Name Type Priority Associated Diagnoses Order Schedule Referral to Rheumatology Outpatient Referral Routine Weakness Ordered: 02/25/2023 documented as of this encounter Visit Diagnoses Diagnosis Weakness Other malaise and fatigue documented in this encounter Care Teams Bi Analyst Relationship Specialty Start Date End Date Magdalena Acosta MD [address] [place] [address] PCP - General Family Medicine 02/05/23 documented as of this encounter
--- OUTSIDE RECORDS SUMMARY | 2024-03-07 14:35 | XMS_ITS | Encounter Summary ---
Author Organization [facility] [place] [address] Care Team Providers Care Hydrotel Operator Name Role Phone Magdalena Acosta MD Primary Care Provider [phone] Reason for Visit * Auth/Cert (Routine) Specialty Diagnoses / Procedures Referred By Contac t Referred To Contact Diagnoses Symptomatic severe aortic stenosis with low ejection fraction NSTEMI, CHF Enrique Chua MD [facility] [place] [address] [facility] Referral ID Status Reason Start Date Expiration Date Visits Re quested Visits Authorized [id number] 1 1 Encounter Details Date Type Department Care Team (Late st Contact Info) Description 05/12/2023 2:50 PM EDT - 05/12/2023 3:50 PM EDT [place] [address] Antelmo Sharma MD [facility] [place] [address] CARDIAC CATHETERIZATION Social History Tobacco Use Types [...] Patient Age: 67 y.o. Birthdate: 1955 Language: Welsh Race: White Ethnicity: Not nor Admit Date: 05/08/2023 Discharge Date: 05/22/2023 Attending Physician: Alirio Hudson MD Follow-up Recommendations for Providers: Please continue routine management of cardiovascular risk factors including blood pressure, lipids,glucose, etc. Please note any medication changes. Patient to follow up with PCP, Magdalena Acosta MD, or Primary Application Development Intern, Avis Mejia MD, in ~ 7-10 days. Patient to follow up with Multimedia Producer, Dr. Antelmo Sharma, in 2 weeks with an EKG, Echo, CBC, and CMP. Patient to follow up with Nephrology, their office to arrange. Qhax-Qcpayn-yk interval: After initial 30 day follow-up appointment , all TAVR patients will follow-up again in one year with an echo. 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 Secondary Diagnoses: Active Hospital Problems Diagnosis S/P TAVR (transcatheter aortic valve replacement) Cardiogenic shock Symptomatic severe aortic stenosis with low ejection fraction Mild coronary artery disease by [facility] 11/09/2022 Heart failure with reduced ejection [...] Tube Placement Right 05/18/2023 Laure Ricks PA [facility] INTERVENTIONL RAD PRG CATH PLMT LEFT HEART CATH & ARTS W/INJ & ANGIO IMG S&I N/A 11/09/2022 CORONARY ANGIOGRAPHY; W [facility],POSSIBLE PCI (WRVU 5.6) performed by Mario Alberto Escobedo MD at [facility] CATH LABS PRG COMBINED RIGHT & LEFT HEART CATH W/INJ L VENTRICULOGRAPHY, IMG S&I N/A 05/12/2023 COMBINED RIGHT & LEFT HEART CATH,INC INJ FOR L VENTRICULOGRAPHY (WRVU 5.99) performed by Antelmo Sharma MD at [facility] CATH LABS PRO AORTOPLAS FOR SUPRAVALV STEN N/A 09/21/2016 @AORTOPLASTY FOR SUPRAVALVULAR STENOSIS (WRVU 29.33) performed by Alirio Hudson MD at [facility] MAIN OR PRO REPLACE AORTIC VALVE (TAVR/FEDERICO)PERC FEMORAL ARTERY APPROACH 05/12/2023 @TRANSCATHETER AORTIC VALVE REPLACEMENT (TAVR), PERCUTANEOUS FEMORAL (WRVU 22.47) performed by Alirio Hudson MD at [facility] CATH LABS PRO REPLACEMENT PROSTHETIC AORTIC VALVE OPEN W CARDIOPULMONARY BYPASS HOMOGRF/STENT N/A 09/21/2016 @REPLACE AORTIC VALVE, OPEN, W\CPB, W\PROSTHETIC VALVE (WRVU 41.32) performed by Alirio Hudson MD at [facility] MAIN OR Prior To Admission Medications [...] Major Procedures/Operations: 05/12/23: Successful right transfemoral TAVR Avnmc-tn-Fatxx with a 23 mm Lai 3 THV. Left coronary protection with left main MINNA. Hospital Course: #Severe prosthetic s/p valve in valve TF TAVR #Low coronary heights s/p left main stent for coronary protection #Type 2 NSTEMI, present on arrival, resolved #Acute decompensated HFrEF #Cardiogenic shock #EVANS / Cardiorenal syndrome Purnima Thacker was admitted to [facility] on 05/08/2023 via the Cardiology Service [...] TAVR and she was brought to the computer laboratory technician the following morning where Drs. [...] if you have questions. Please call your Multimedia Producer's office if you have any discharge or drainage from your procedural sites. Your Multimedia Producer, Dr. Antelmo Sharma and/or the Medical Artist may be reached at . Antibiotic prophylaxis: [...] friends, go to a movie, go to hoahaoism, etc. Heavy activities: No hunting, skiing, jogging, [...] pain, warmth or drainage. Please call your softball player's office if you have any discharge or drainage from your procedural sites. If there is a lot of swelling, apply mamta wraps during the day and remove at bedtime. Elevate your legs when you are sitting. Home oxygen therapy: N/A Follow up appointments: Please schedule a follow-up appointment with your PCP, Magdalena Acosta MD, or Primary Application Development Intern in ~ 7-10 days. You have a follow-up appointment with your Multimedia Producer, Dr. Antelmo Sharma, in 2 weeks with an EKG, Echo, and labs prior to your appointment. You will need follow-up with Nephrology, their office will arrange. Qwip-Cvibwj-qd interval: After initial 30 day follow-up appointment , all TAVR patients will follow-up again in one year with an echo. Cardiac Rehabilitation: Purnima Thacker was seen today regarding participation in the outpatient Phase [address] [facility]. The patient agrees to a referral to this program. The referral will be sent at discharge and the patient should be contacted by the Program within 1- 2 weeks from discharge. Future Appointments and Orders Future Appointments and Orders Future Appointments Provider Department Dept Phone 07/29/2023 11:00 AM Magdalena Peralta MD Rheumatology at [facility] Arrive at: [facility] [address] [phone] 02/11/2024 2:00 PM Marek Bonilla MD Dermatology at [place] Arrive at: [facility] [address] [phone] Future Orders Complete By Expires Type and Screen Future Surgery, [facility] SAME DAY PROGRAM ONLY) [[id number] Custom] 05/11/2023 Process Instructions: This test is intended ONLY for patients with upcoming surgery for testing prior to the day of surgery obtained through the same day program (4V or SDP). For ALL OTHER PATIENTS, order a Type and Screen (KMO371) This order includes the physician order for an ABO Recheck if requested by the Blood Bank. Scheduling Instructions: Comments: Questions: Date of surgery: CBC (with Diff) [CRW067 Custom] 06/05/2023 12/05/2023 Process Instructions: INCLUDES: WBC, RBC, Hgb, Hct, Platelets, RBC Indices and Differential Scheduling Instructions: Comments: Questions: Comprehensive metabolic panel (non-fasting) [LAB17 Custom] 06/05/2023 08/20/2023 Process Instructions: INCLUDES: Calcium, T Protein, Albumin, AST, ALT, Alk Phos, T Bili, BUN, Creat, GFR, Glucose, Lytes. Scheduling Instructions: Comments: Questions: Echocardiogram Transthoracic [89034 CPT(R)] 06/05/2023 12/05/2023 Process Instructions: Scheduling Instructions: Questions: Where will study be performed?: [facility] Does the patient have Congenital Heart Disease?: Does patient require sedation?: GA rationale: EKG 12 Lead [74887 CPT(R)] 06/05/2023 12/05/2023 Process Instructions: Scheduling Instructions: Questions: Which location will this be performed?: [place] Is a rhythm strip needed?: No [facility] [EQ161 Custom] As directed Process Instructions: Scheduling Instructions: Questions: Device Needed: WALKER (E0143) Patient Height (cm): 154.9 cm (5' 0.98) Patient Weight: 75.4 kg (166 lb 3.2 oz) Diagnosis: Unsteady gait when walking Referral to Cardiac Rehab [OFS206 Custom] As directed Process Instructions: If no progress note charted, please enter Clinical details in comments. Scheduling Instructions: Questions: My question or request is: s/p TAVR. Cardiac rehab at [facility]. Referral to Home Health [REF34 Custom] As directed Process Instructions: If no progress note charted, please enter Clinical details in comments. Scheduling Instructions: Comments: DOCUMENTATION FOR VNA SERVICES PATIENT'S LOCATION: Purnima Thacker [address] [place] [address] [phone] (home) Scene Shifter's Name: Irineo and brother Raymond In discussion with the attending physician, it is certified that this patient is under his/her careand that MD, or an NUCLEAR FUEL PROCESSING TECHNICIAN, PETROL TANKER DRIVER, or PA who is working directly with him/her, had a pqai-zn-knkv encounter that meets the physician qwwv-gc-qknr encounter requirements with this patient on 05/22/2023. [...] for managing ADLs. HOME HEALTH CARE AGENCY: [facility]. [address] [facility] [address] PHONE: [phone] FAX: [phone] Start of care: Ideally 24-48 hours after [...] Acosta MD [address] / [facility] [phone] All VNA agencies which cover the area of patient's residence have been reviewed, either verbally joao writing, and patient has chosen the home health care agency noted. Questions: Disciplines Requested: Physical Therapy Occupational Therapy Discharge References/Attachments None Arrangements for VNA/home care: As above. (delete if no VNA) Signed: EKATERINA NAVARRETE [facility] Section of Cardiac Surgery Date: 05/22/2023 CC: Magdalena Acosta MD DelaneyMario Alberto maxwell MD [address] [place] [address] documented in this encounter Discharge Instructions * Patient Instructions* Vinod Juárez PA - 05/22/2023 9:32 AM EDT TAVR Discharge Instructions: Call your doctor if: You have a fever of greater than 101 degrees, shaking chills, if you develop redness or drainage from your procedure sites, or if you have questions. Please call your Multimedia Producer's office if you have any discharge or drainage from your procedural sites. Your Multimedia Producer, Dr. Antelmo Sharma and/or the Medical Artist may be reached at . Antibiotic prophylaxis: [...] friends, go to a movie, go to hoahaoism, etc. Heavy activities: No hunting, skiing, jogging, [...] pain, warmth or drainage. Please call your softball player's office if you have any discharge or drainage from your procedural sites. If there is a lot of swelling, apply mamta wraps during the day and remove at bedtime. Elevate your legs when you are sitting. Home oxygen therapy: N/A Follow up appointments: Please schedule a follow-up appointment with your PCP, Magdalena Acosta MD, or Primary Application Development Intern in ~ 7-10 days. You have a follow-up appointment with your Multimedia Producer, Dr. Antelmo Sharma, in 2 weeks with an EKG, Echo, and labs prior to your appointment. You will need follow-up with Nephrology, their office will arrange. Oida-Knevxk-en interval: After initial 30 day follow-up appointment , all TAVR patients will follow-up again in one year with an echo. Cardiac Rehabilitation: Purnima Gallegol was seen today regarding participation in the outpatient Phase [address] [facility]. The patient agrees to a referral to [...] ins ( tef) Haven Ba, PT Pager: [phone] Physical Therapy Inpatient Rehabilitation Department * Nico [...] 0600 and on the weekends please page [phone]. * Jory Paniagua - 05/20/2023 3:52 PM [...] vomiting Last Bowel Movement: 05/20/23 Jory Paniagua Flitch Hanger * Tong Mike, OT - 05/20/2023 3:16 [...] Tube Placement Right 05/18/2023 Laure Ricks PA [facility] INTERVENTIONL RAD PRG CATH PLMT LEFT HEART CATH & ARTS W/INJ & ANGIO IMG S&I N/A 11/09/2022 CORONARY ANGIOGRAPHY; W [facility],POSSIBLE PCI (WRVU 5.6) performed by Mario Alberto Escobedo MD at [facility] CATH LABS PRG COMBINED RIGHT & LEFT HEART CATH W/INJ L VENTRICULOGRAPHY, IMG S&I N/A 05/12/2023 COMBINED RIGHT & LEFT HEART CATH,INC INJ FOR L VENTRICULOGRAPHY (WRVU 5.99) performed by Antelmo Sharma MD at [facility] CATH LABS PRO AORTOPLAS FOR SUPRAVALV STEN N/A 09/21/2016 @AORTOPLASTY FOR SUPRAVALVULAR STENOSIS (WRVU 29.33) performed by Alirio Hudson MD at [facility] MAIN OR PRO REPLACE AORTIC VALVE (TAVR/FEDERICO)PERC FEMORAL ARTERY APPROACH 05/12/2023 @TRANSCATHETER AORTIC VALVE REPLACEMENT (TAVR), PERCUTANEOUS FEMORAL (WRVU 22.47) performed by Alirio Hudson MD at [facility] CATH LABS PRO REPLACEMENT PROSTHETIC AORTIC VALVE OPEN W CARDIOPULMONARY BYPASS HOMOGRF/STENT N/A 09/21/2016 @REPLACE AORTIC VALVE, OPEN, W\CPB, W\PROSTHETIC VALVE (WRVU 41.32) performed by Alirio Hudson MD at [facility] MAIN OR Social History: Patient lives alone. Home Setup: Pt lives on one level with tub shower and three steps to enter. DME: none used WILD ANIMAL CARETAKER Baseline ADL/Mobility: Independent with ADLs and IADLs. [...] WFL Vision & Perception: corrective lenses time stamp assembler Communication: WFL Range of motion, strength, coordination: [...] Discharge Disposition (OT): swing bed rehabilitation facility, retirement facility(vs home with support for IADLs) Other [...] Discharge planning. Total Minutes, Occupational Therapy: 28 ([id number]) OT Evaluation Code Rationale: Diagnosis & Pertinent Co-Morbidities affecting Plan of Care: see PMHx Occupational Profile & Client History: Brief Expanded Extensive x Assessment of Occupational Performance: 1-3 performance deficits 3-5 performance deficits x 5 + performance deficits Clinical Decision Making: Low Moderate High x Clinical decision making of moderate complexity using standardized patient assessment instrument and measurable assessment of functional outcome. Pager: [phone] TONG MIKE OT 05/20/2023 Occupational Therapy Rehabilitation [...] 0600 and on the weekends please page [phone]. * Rylie Rodriguez MD - 05/19/2023 3:59 [...] and plan. Cynthia Blackburn MD Nephrology Pager: [phone] * Diana Espino - 05/19/2023 1:49 PM EDT Managed Care Director Encounter Note Patient Name: Purnima Thacker : [id number] MR#: [id number] Admit Date: 05/08/2023 9:14 AM Hospital Day [...] returning home alone. Anticipated Discharge Disposition (PT): retirement facility, swing bed rehabilitation facility Consult Recommendations: [...] as stated. Total Minutes, Physical Therapy: 38 ([phone]) Henrik Navarrete PTA Pager: [phone] Physical Therapy Inpatient Rehabilitation Department * Nico [...] 0600 and on the weekends please page [phone]. * Laure Ricks PA - 05/19/2023 7:56 [...] Ricks PA-C Interventional Radiology IR Team Pager [phone] * Consuelo Espinoza RN - 05/18/2023 4:13 PM EDT ANGIO NURSING DATABASE Name: Purnima Thacker Date of : 1955 AGE: 67 y.o. Address: [address] [place] [address] (home) Mobile: No relevant phone numbers on [...] fraction I35.0 Mild coronary artery disease by [facility] 11/09/2022 I25.10 Heart failure with reduced [...] and plan. Cynthia Blackburn MD Nephrology Pager: [phone] * Magdalena Puri, CHIEF PSYCHOLOGY - 05/18/2023 10:51 AM EDT Images from the original note were not included. [place] [address] [place] [address] STRUCTURAL HEART DISEASE CONSULTATION NOTE PRIMARY CARE [...] stenosis. She is now status post TAVR Asyjd-dk-Dzyfg with a 23 mm Lai 3 THV 05/12/[address] Sharma. Preliminary findings: Successful right transfemoral TAVR Ylrca-vt-Dtktl with a 23 mm Lai 3 THV. [...] ejection fraction Mild coronary artery disease by [facility] 11/09/2022 Heart failure with reduced ejection [...] 4 mg 4 mg Intravenous Q8H PRN MaconMara ernandez APRN4 mg at 05/12/23 0736 pantoprazole EC (Protonix) tablet 40 mg 40 mg Oral Daily MaggieMara ernandez APRN 40 mg at 05/18/23 0826 Or pantoprazole (Protonix) injection 40 mg 40 mg Intravenous Daily MaconMara ernandez APRN 40 mg at 05/12/23 1004 senna-docusate (Pericolace) 8.6-50 mg per tablet 2 tablet 2 tablet Oral Daily MaconMara ernandez APRN 2 tablet at 05/16/232111 bisacodyL [...] stenosis. She is now status post TAVR Fcmeh-sh-Jzkhj with a 23 mm Lai 3 THV [...] Magdalena Puri APRN Structural Heart Team Pager [phone] Team Office Please see addendum by Dr. Sharma for final plan and recommendations Associated attestation - Antelmo Sharma MD - 05/19/2023 10:52 PM EDT I have reviewed Magdalena Puri APRN's above history and I agree with the details as written. The assessment and plan were formulated in discussion with me and I agree with them as documented. Antelmo Sharma MD Pager [phone] * Nico Palacios PA - 05/18/2023 8:13 [...] 0600 and on the weekends please page [phone]. * Loli Hernandez, PT - 05/17/2023 5:27 [...] returning home alone. Anticipated Discharge Disposition (PT): retirement facility, swing bed rehabilitation facility Consult Recommendations: [...] plan as stated. Time IN / OUT: 4664-8252 Total Minutes, Physical Therapy: 54 Billing Code: te-sx2, te-f, angely HERNANDEZ PT Pager: [phone] Physical Therapy Inpatient Rehabilitation Department * Cynthia [...] Well controlled. Cynthia Blackburn MD Nephrology Pager: [phone] * Mara Serrano, CHIEF PSYCHOLOGY - 05/17/2023 8:26 AM EDT Cardiac Surgery [...] 0600 and on the weekends please page [phone]. * Guerda Del Valle C - 05/16/2023 10:44 AM EDT Nutrition Services Note - Low Nutrition Acuity Purnima Thacker is a 67 y.o. female Reason for intervention: hospital day 9 Nutrition Plan: Continue diet order Encourage good PO Lasix and Zofran noted Added special serve: open containers Monitor weight Patient scheduled for a hospital day 9 nutrition evaluation. Gas Appliance Mechanic met with pt at bedside. Pt reports that her appetite and PO has much improved since admission. Denies nausea/vomiting or trouble chewing/swallowing. Gas Appliance Mechanic provided snack list but pt not interested in adding snacks at this time. Her only concern was that she is worried that she will eat too much which will cause too much pressure in her stomach. Gas Appliance Mechanic assured pt and suggested eating smaller but [...] Last Bowel Movement: 05/10/23 Guerda Del Valle Flitch Hanger * Vinod Juárez PA - 05/16/2023 10:19 [...] 0600 and on the weekends please page [phone]. * Michael Jeffers MD - 05/16/2023 8:11 AM EDT Images from the original note were not included. Hypertension-Nephrology Inpatient Follow-up Purnima Thacker [id number] 1955 ID: 67 y.o. old female seen [...] IRONSAT 12 (L) 05/16/2023 SFOLATE >20.0 07/03/2022 [id number] 07/03/2022 Lab Results Component Value Date [...] Dr. Ayoub. Please contact me at phone: [phone] or pager: [phone] with any questions. Michael Jeffers MD Nephrology [...] -Nephrology consulted, labs and renal US ordered -Millwood removed, ambulated around the unit -bilateral pleural [...] 0600 and on the weekends please page [phone]. * Hortencia Cody MD - 05/15/2023 2:07 [...] not included. Hypertension-Nephrology Inpatient Follow-up Purnima Thacker [id number] 1955 ID: 67 y.o. old female seen [...] HGB 7.8 (L) 05/13/2023 SFOLATE >20.0 07/03/2022 [id number] 07/03/2022 Lab Results Component Value Date [...] Dr. Ayoub. Please contact me at phone: [phone] or pager: [phone] with any questions. Michael Jeffers MD Nephrology [...] outlined inthis evaluation. HAVEN BA, PT Pager: [phone] Physical Therapy Inpatient Rehabilitation Department Time IN / OUT: 6372-6882 Total time: Total Minutes, Physical Therapy: 30 [...] 0600 and on the weekends please page [phone]. * Antelmo Sharma MD - 05/14/2023 7:56 AM EDT Images from the original note were not included. [place] [address] [address] STRUCTURAL HEART DISEASE CONSULTATION NOTE PRIMARY CARE [...] stenosis. She is now status post TAVR Ssvsn-wg-Fdcah with a 23 mm Lai 3 THV 05/12/[address] Sharma. Preliminary findings: Successful right transfemoral TAVR Immgv-yi-Nqbmi with a 23 mm Lai 3 THV. [...] perforation. Interval Events: - 05/12 Transferred to [facility] post- TAVR for pressor/inotropic support (Levo, [...] ejection fraction Mild coronary artery disease by [facility] 11/09/2022 Heart failure with reduced ejection [...] stenosis. She is now status post TAVR Tdvji-lj-Kxfvl with a 23 mm Lai 3 THV 05/12/[address] Sharma. Janet TAVR case notable for coronary LAD protective MINNA. Status post TAVR, the patient was transferred to [facility] for pressor and inotropic support. Pressors weaned overnight 05/12. Cardiac indices by thermodilution remained >3 with continued Milrinone 0.125 mcg/kg/min prior to PAC removal. EKG todayNSR with stable KY/QRS intervals. Hemoglobin slowly down-trending (8.2-> 7.8-> 7.2). [...] Brody Kaplan APRN Structural Heart Team Pager [phone] Team Office Please see addendum by Dr. [...] exposure. Nephrology consultationtoday. Antelmo Sharma MD Pager [phone] * Antelmo Cardenas RN - 05/14/2023 5:18 AM EDT Pt AOx4, complaining of mild/moderate generalized pain (states her Meloxicam is effective at home) currently refusing prn oxycodone. NAEON, hemodynamically stable on Milrinone, Maps >65, ST in wqz448's down to NSR with frequent multifocal PVC's. [...] from the original note were not included. [place] [address] [address] STRUCTURAL HEART DISEASE PROGRESS NOTE PRIMARY CARE [...] stenosis. She is now status post TAVR Yweqa-en-Tfjgf with a 23 mm Lai 3 THV 05/12/[address] Sharma. Preliminary findings: Successful right transfemoral TAVR Nlesr-at-Nheww with a 23 mm Lai 3 THV. [...] ejection fraction Mild coronary artery disease by [facility] 11/09/2022 Heart failure with reduced ejection [...] stenosis. She is now status post TAVR Bavwi-vw-Bjfci with a 23 mm Lai 3 THV 05/12/[address] Sharma. Janet TAVR case notable for coronary LAD protective MINNA. Status post TAVR, the patient was transferred to [facility] for pressor and inotropic support. Pressors weaned overnight. Cardiac indices by thermodilution remain greater than 3 with continued Milrinone 0.125 mcg/kg/min. EKG today NSR with stable KY/QRS intervals. Hemoglobin 7.8 today from 8.5, likely [...] Brody Kaplan APRN Structural Heart Team Pager [phone] Team Office Please see addendum by Dr. [...] DAPT moving forward. Antelmo Sharma MD Pager [phone] * Bonita Miguel PA - 05/13/2023 8:30 AM EDT Cardiac Surgery Progress Note Purnima Thacker is a 67 y.o. 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 PMH of s/p tissue AVR (2017), mixed connective tissue disease HTN, HLD, NICOLAS, diverticulosis, rosacea, essential tremor, and depression. 24h Events: From computer laboratory technician for above procedure Extubated at [...] soft b/l, no evidence of hematoma. Tubes/Lines/Drains: Millwood, RIJ, A-line, Art, PIV Assessment/Plan: 67 y.o. [...] 0600 and on the weekends please page [phone]. * Onelia Schwartz MD - 05/12/2023 1:44 [...] ejection fraction Mild coronary artery disease by [facility] 11/09/2022 Heart failure with reduced ejection [...] FiO2 weaned to 40%. 1105: ABG 7.34/42/73/22 4537-9548: SBT performed and passed on these settings [...] PCP: Magdalena Acosta MD PCP phone number: [phone] Date of Admission: 05/08/2023 ( Hospital Day [...] 1447 PHART -- 7.34* 7.34* -- -- EWF2QPK -- 30* 30* -- -- PO2ART -- 72* 81* -- -- KKW1CEG -- 16.0* 15.7* -- -- LACTATEVEN 2.4* 2.7* 2.7* 4.8* 2.9* VBG (Venous Blood Gas) Recent Labs 05/12/23 0700 05/12/238 05/12/2310505/11/23193905/11/23 144 LACTATEVEN 2.4* 2.7* 2.7* 4.8* 2.9* Mixed Venous Sat Recent Labs 05/12/23 0508 05/12/23 0321 05/12/23 0114 05/12/23 0030 S2UDZF0 30.7 32.7 37.3 25.1 Objective: Vitals Last [...] questions please contact the health health care recruiter that requested your imaging first. Cardiac for [...] questions please contact the health health care recruiter that requested your imaging first. Electronically signed by: Cullen Narayanan MD, [facility] ([phone]), at 05/11/2023 4:[address] Angiogram Abdomen [...] questions please contact the health health care recruiter that requested your imaging first. Chest One [...] questions please contact the health health care recruiter that requested your imaging first. Chest One [...] questions please contact the health health care recruiter that requested your imaging first. Assessment & [...] and inotrope. She is planned for a ditfx-zh-jilyg TAVR this morning, which should hopefully improve [...] MD, FACP, FACC Section of Cardiovascular Medicine [facility] Machine Bufferfamily practice md [facility] [...] ejection fraction Mild coronary artery disease by [facility] 11/09/2022 Heart failure with reduced ejection [...] 05/11/2023 4:11 PM EDT Reported off to REFINERY PIPELINE OPERATOR and pt transferred over in the bed for higher level of care. * Antelmo Sharma MD - 05/11/2023 9:45 AM EDT Images from the original note were not included. [place] [address] [place] [address] STRUCTURAL HEART DISEASE CONSULTATION NOTE PRIMARY CARE [...] who had been referred for possible TAVR hdzkk-pl-dsanh evaluation. Her primary symptoms are of dyspnea [...] otherwise negative. Ms. Thacker is originally from [facility]. 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 She states that, [...] ejection fraction Mild coronary artery disease by [facility] 11/09/2022 Heart failure with reduced ejection [...] hour(s)) Lactate, whole blood, send to lab ([facility] Result Value Ref Range Lactate WB 3.1 (H) 0.5 - 2.2 mmol/L Heparin (unfractionated) Level Result Value Ref Range Heparin UFH Level 0.46 IU/mL Lactate, whole blood, send to lab ([facility] Result Value Ref Range Lactate WB 1.8 [...] leads Confirmed by MD Harshil, Enrique Bell ([id number]) on 05/10/2023 8:11:46 AM Cardiac Cath 11/09/2022 [...] alert Dr. Hudson of her inpatient status, [place] primary cardiac surgeon. Based on recent clinic visit, tentative plan had been for TAVR JANET issa ferrera given her chronological age. Cardiac cath 11/09/2022 notable for non-obstructive coronary disease. TAVR CTAs planned for today. Will review her case with cardiac surgery to determine best timing and therapies for her valve intervention. Addendum 05/11/2023 6:48 PM Due to decompensating HFrEF, she was transferred to [facility] this afternoon for further management. TAVR CT imaging support for adequate ileofemoral access. Given her acute deterioration today, will planfor RTF TAVR on 05/12/2023. Brody Kaplan APRN Structural Heart Disease Pager [phone] Please see addendum by Dr. Sharma for [...] signed and dated. Antelmo Sharma MD Pager [phone] * Harini Lance MD - 05/11/2023 6:06 AM EDT Images from the original note were not included. Cardiology Progress Note Patient info: Name: Purnima Thacker : 1955 PCP: Magdalena Acosta MD PCP phone number: [phone] Date of Admission: 05/08/2023 ( Hospital Day [...] questions please contact the health health care recruiter that requested your imaging first. 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, 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) Mild coronary artery disease by [facility] 11/09/2022 Hyperlipidemia, unspecified NICOLAS (obstructive sleep [...] PCP: Magdalena Acosta MD PCP phone number: [phone] Date of Admission: 05/08/2023 ( Hospital Day [...] 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) Mild coronary artery disease by [facility] 11/09/2022 Hyperlipidemia, unspecified NICOLAS (obstructive sleep [...] PCP: Magdalena Acosta MD PCP phone number: [phone] Date of Admission: 05/08/2023 ( Hospital Day [...] Gas) No results found for: PHART, PO2ART, RZF5LEM, NSS7PMH Microbiology: Microbiology Results (Last 30 days) No [...] PPx: Diet: Daily Healthy Menu Choices/Cardiac diet ([facility]) Lines: Peripheral IV Line - Single Lumen [...] 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) Mild coronary artery disease by [facility] 11/09/2022 Hyperlipidemia, unspecified NICOLAS (obstructive sleep [...] fraction I35.0 Mild coronary artery disease by [facility] 11/09/2022 I25.10 Heart failure with reduced ejection fraction due to heart valve disease I50.20, I38 Cardiogenic shock R57.0 S/P TAVR (transcatheter aortic valve replacement) Z95.2 Past Medical History: Diagnosis Date Anemia Past Surgical History: Procedure Laterality Date PRG CATH PLDC LEFT HEART CATH & ARTS W/INJ & ANGIO IMG S&I N/A 11/09/2022 CORONARY ANGIOGRAPHY; W [facility],POSSIBLE PCI (WRVU 5.6) performed by Mario Alberto Escobedo MD at [facility] CATH LABS PRO AORTOPLAS FOR SUPRAVALV STEN N/A 09/21/2016 @AORTOPLASTY FOR SUPRAVALVULAR STENOSIS (WRVU 29.33) performed by Alirio Hudson MD at [facility] MAIN OR PRO REPLACEMENT PROSTHETIC AORTIC VALVE OPEN W CARDIOPULMONARY BYPASS HOMOGRF/STENT N/A 09/21/2016 @REPLACE AORTIC VALVE, OPEN, W\CPB, W\PROSTHETIC VALVE (WRVU 41.32) performed by Alirio Hudson MD at [facility] MAIN OR Social History and Habits: [...] fraction I35.0 Mild coronary artery disease by [facility] 11/09/2022 I25.10 Heart failure with reduced ejection fraction due to heart valve disease I50.20, I38 Cardiogenic shock R57.0 S/P TAVR (transcatheter aortic valve replacement) Z95.2 Past Medical History: Diagnosis Date Anemia Past Surgical History: Procedure Laterality Date PRG CATH PLDC LEFT HEART CATH & ARTS W/INJ & ANGIO IMG S&I N/A 11/09/2022 CORONARY ANGIOGRAPHY; W [facility],POSSIBLE PCI (WRVU 5.6) performed by Mario Alberto Escobedo MD at [facility] CATH LABS PRO AORTOPLAS FOR SUPRAVALV STEN N/A 09/21/2016 @AORTOPLASTY FOR SUPRAVALVULAR STENOSIS (WRVU 29.33) performed by Alirio Hudson MD at [facility] MAIN OR PRO REPLACEMENT PROSTHETIC AORTIC VALVE OPEN W CARDIOPULMONARY BYPASS HOMOGRF/STENT N/A 09/21/2016 @REPLACE AORTIC VALVE, OPEN, W\CPB, W\PROSTHETIC VALVE (WRVU 41.32) performed by Alirio Hudson MD at [facility] MAIN OR Social History and Habits: [...] days, which prompted her to present to [facility]. She also endorses some intermittent retrosternal chest pain with exertion.She endorses some dizziness with exertion, but has not gotten faint or passed out. At [facility] she was noted to be afebrile, blood pressure 105/64, HR 120s, satting 95% on 2L NC. Labs from [facility] are below, of note she had elevated [...] 89/59, which prompted the transfer to us. [facility] labs: CBC - Hgb 10.5 CMP - Cr 1.1 BNP 87850 HsTrop 1358 Lactate 1.6 D-dimer 1183 Interval History Patient was admitted to [facility] due to concern on low BP [...] Klaudia Reid MD Internal Medicine PGY-1 Pager [phone], M1-S1 Service Associated attestation - Juan Luis Gonzalez MD - 05/08/2023 10:00 PM EDT Cardiology Attending Addendum Active Hospital Problems Diagnosis Symptomatic severe aortic stenosis with low ejection fraction Heart failure with reduced ejection fraction due to heart valve disease Mild coronary artery disease by [facility] 11/09/2022 Hyperlipidemia, unspecified History of aortic [...] PCP: Magdalena Acosta MD PCP phone number: [phone] Date of Admission: 05/08/2023 ( Hospital Day 0 days ) Attending:Enrique Chua MD ID: Purnima Thacker is a 67 y.o. female w/ PMH of s/p bioprosthetic AVR in 2016 with recent concern for severe restenosis, HTN, HLD, mixed connective tissue disease, who presents in transfer from [facility] with worsening BONILLA and weight gain concerning [...] four days, which promptedher to present to [facility]. She also endorses some intermittent retrosternal chest pain with exertion. She endorses some dizziness with exertion, but has not gotten faint or passed out. At [facility] she was noted to be afebrile, blood pressure 105/64, HR 120s, satting 95% on 2L NC. Labs from [facility] are below, of note she had elevated [...] 89/59, which prompted the transfer to us. [facility] labs: CBC - Hgb 10.5 CMP - Cr 1.1 BNP 60476 HsTrop 1358 Lactate 1.6 D-dimer 1183 Vasoactive [...] tissue disease, who [facility] B[facility] and weight gain concerning for [...] #Routine Diet: Daily Healthy Menu Choices/Cardiac diet ([facility]) DVT Prophylaxis: heparin gtt GI Prophylaxis: none [...] to the planned procedure. Hand Hygiene: The lavatory attendant did perform hand hygiene prior to arterial [...] Successful arterial line placement. Crispin Timmons MD Medical Artist Associated attestation - Onelia Schwartz MD - [...] (flow was non-pulsatile) and appearance of blood. Millwood-Marily catheter was placed and locked at 55 [...] information for follow-up [facility], [facility] [address] [place] [address] Cardiac Rehab, [place] [id number] [place] [address] Home [facility], [facility] [address] [place] [address] Transportation: family or friend will provide *Brother [...] Type: *No Product type* / Secondary Insurance: [employer] [place] Prescription Coverage: Yes This plan was formulated with input from patient, family (please identify family/friend involved ifapplicable) and team. All are in agreement with plan. Aliza Martino MSN-Ed, RN ACM register clerk Office of Care Management Pager #[phone] * Plan of Care - Favian Mckeon [...] Lana Chaudhary RN - 05/21/2023 4:46 PM [facility]: [facility] referral OFFICE OF CARE MANAGEMENT [...] Type: *No Product type* / Secondary Insurance: [employer] [facility] [place] Last Physical Therapy Recommendation: (Home with assist from Brother; Friend arriving Tues) with walker, front wheeled Last Occupational Therapy Recommendation: swing bed rehabilitation facility, retirement facility (vs home with support for IADLs) with walker, front wheeled, shower chair Plan for discharge is: Home w/ Services Outpatient Agency/Support Group Needs: Homecare agency Home Health Services: Physical Therapy, Occupational Therapy Agency Referrals: I have met with the patient to: discuss discharge planning needs. describing our affiliations within the [facility] and educate about their right to choose where referrals are sent. provide a list of Home Health Agencies / Durable Medical Equipment vendors which serve their preferred geographic area. They have requested referrals to: [facility] [address] [place] [address] [facility] @ [place], [place] Note routed to a Panel Maker who will communicate referrals to facilities and provide any required information. Transportation: family or friend will provide *Brother Raymond on Tuesday 05/22 at 1000 Barriers to discharge: Does not have home 22/02 assist available until tomorrow Tuesday 05/22 Plan going forward: Discharge home into the 22/02 home care of brother Raymond with [facility] PT/OT services on Tuesday 05/22 [...] Attending: All Staff: Staff Role Juanita Almaguer Flight Engineer Inspector Laure Ricks PA Physician Producer Arborist Manager Magdalena Rodriguez RN Radiology Nurse Consuelo Espinoza client service coordinator Nurse Post-operative diagnosis/Indication: Right pleural effusion Name [...] Type: *No Product type* / Secondary Insurance: [employer] [facility] [place] Last Physical Therapy Recommendation: retirement facility, swing bed rehabilitation facility with to be determined Last Occupational Therapy Recommendation: with Plan for discharge is: Longterm Facility / Swing Outpatient Agency/Support Group Needs: None Agency Referrals: Based on discussions with the multi-disciplinary healthcare team, the patient would benefit from SNF / Swing level of care at discharge. I have met with the patient to: discuss discharge planning needs. provide the [facility], Office of Care Management letter from the Master Cook pertaining to rehab referrals. provide a letter describing our affiliations within the [facility] and educate about their right to choose where referrals are sent. provide the CMS Star Quality Rating handout. review the different levels of rehab including SNF, swing, and acute. provide a list of facilities within their preferred geographic area. request that they provide at least three choices for referral. They have requested referrals to: [facility] [address] [place] [address] [facility] ([facility]) [address] [place] [address] (Accepts pts only after exhausting all other local SNF options) [facility] (Swing) ([facility]) [address] [place] [address] PHONE: [phone] FAX: [phone] [facility] ([facility]) [facility]) [address] [place] [address] PHONE: [phone] FAX: [phone] Note routed to a Panel Maker who will communicate referrals to facilities and [...] Crenshaw RN - 05/17/2023 10:25 AM EDT [facility] Purnima Thacker was seen today regarding participation in the outpatient Phase [address] [facility]. The patient agrees to a referral to [...] from the original note were not included. [facility] NEPHROLOGY/HYPERTENSION CONSULT NOTE PATIENT: Purnima Thacker : [...] in her course. She ultimately underwent a wsotk-ej-toeoq procedure on and tolerated it well (see operative details). [facility] and sedated on some pressors support.. [...] 1423 05/12/23 1105 PHART 7.39 7.37 7.34* ZSA1HAT 33* 36 42 PO2ART 101 102 73* JYR1WTN 19.5* 20.4 22.1 LACTATEVEN 1.5 1.8 2.8* QLI3YYB 40 40 40 PFRATIOART2 252 255 182 VBG (Venous Blood Gas) Recent Labs 05/12/23 1557 05/12/23 1423 05/12/23 1105 LACTATEVEN 1.5 1.8 2.8* Mixed Venous Sat Recent Labs 05/12/23 1425 05/12/23 0508 05/12/23 0321 R0SNTP1 59.9 30.7 32.7 LFT's: Recent Labs 05/14/23 0110 05/13/23 0115 05/12/23 0600 BILITOT 0.4 0.5 0.9 BILIDIR -- 0.3 -- ALBUMIN 3.6 3.0* 3.5 ALKPHOS 86 85 100 ALT 437* 903* 1,174* AST 319* 792* 1,435* No results found for: UPROTCREAT No results found for: TPROTEINPEP, ALBELECT No results found for: MICROALBUR, UBNR25KGY No results found for: HA1C Lab Results Component Value Date CALCIUM 8.5 05/14/2023 PHOS 4.7 (H) 05/08/2023 No results found for: 25OHVITD MICROBIOLOGY: ProcedureComponentValueUnitsDate/TimeUrine culture [[id number]]Collected: 05/11/231921Lab Status: Final resultSpecimen: Clean Catch UrineUpdated: [...] consulted for assessment if this patient needs TERRAZZO WORKER HELPER. Atthis time, we can likely hold off on TERRAZZO WORKER HELPER. Her volume status appears sufficient and her metabolic kanwal angements with mild acidosis is not too profound. Patient does not have significant uremic symptoms. We can hold off for today, but the patient is a high risk candidate for needing TERRAZZO WORKER HELPER in future daysespecially if her Cr curve trends the direction it is for the next several days. S/p Zuihb-ro-Tbalo TF TAVR: Management per cardiology. On milrinone gtt. PLAN: - Please obtain following diagnostics: renal US, urinalysis, urine prot/Cr ratio, urine albumin/Cr ratio, CK, uric acid, serum osmol, daily VBGs - No acute indications for TERRAZZO WORKER HELPER/dialysis. We will keep close eye on Cr trend, volume status, and metabolics to ensure patient still does not need TERRAZZO WORKER HELPER as she ensues intrinsic renal recovery - [...] M.H.Katherine., M.A. PGY-V Nephrology-Hypertension Fellow Page # [phone] 2nd floor, Peanut Butter Maker [address] [place] [address] * Care Management - Mario Alberto Olmos [...] Type: *No Product type* / Secondary Insurance: [facility] Plan for discharge is: Home w/o [...] for a TAVR at 730. Returned to [facility] at 0945. Was intubated in the computer laboratory technician due to agitation. Maintained bedrest [...] Operative Note Patient Name: Purnima Thacker : [id number] MR#: [id number] Case Date: 05/12/2023 Surgeon: Surgeon(s) and Role: [...] procedure Note: Patient Name: Purnima Thacker : [id number] MR#: [id number] Case Date: 05/12/2023 Operators Surgeon: Surgeon(s) and [...] main with 4.0 x 30 mm Resolute Hilliard Drug Eluting Stent Perclose x1 + Angio-seal 8 Fr x1, RFA Manual pressure, LFA Manual pressure, LFV Endotracheal intubation (performed by cardiac anesthesia) Preliminary findings: Successful right transfemoral TAVR Bzsjp-ra-Daamu with a 23 mm Lai 3 THV. [...] MD, M.Sc. Structural Heart Disease Fellow Pager :[phone] Antelmo Sharma MD Pager [phone] * Op Note - Alirio Hudson MD - 05/12/2023 7:37 AM EDT Preop Diagnosis: Severe aortic stenosis, symptomatic. Postop Diagnosis: Same. Procedure: Transfemoral TAVR procedure with 23mm valve. Surgeon: Alirio Hudson M.D. Application Development Intern: Danny CULP Procedure: The patient was taken to the computer laboratory technician. 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 [facility] Smoking - never ETOH - denies Illicit [...] from the original note were not included. [place] [address] [address] STRUCTURAL HEART DISEASE CONSULTATION NOTE PRIMARY CARE [...] who had been referred for possible TAVR qprec-wb-pfzom evaluation. Her primary symptoms are of dyspnea [...] otherwise negative. Ms. Thacker is originally from [facility]. 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 PROBLEM LIST: Patient Active Problem List Diagnosis Symptomatic severe aortic stenosis with low ejection fraction Mild coronary artery disease by [facility] 11/09/2022 Heart failure with reduced ejection [...] 12.5 mg 12.5 mg Oral Daily Benjamin rGeen MD 12.5 mg at 05/10/23 1025 heparin [...] hour(s)) Lactate, whole blood, send to lab ([facility] Result Value Ref Range Lactate WB 1.8 [...] leads Confirmed by MD Harshil, Enrique Bell ([id number]) on 05/10/2023 8:11:46 AM Assessment and Plan: [...] alert Dr. Hudson of her inpatient status, [place] primary cardiac surgeon. Based on recent clinic [...] Antelmo Sharma MD Structural Heart Disease Pager [phone] * Plan of Care - Sarahi Nice RN - 05/10/2023 3:55 AM EDTSumavis: RN Note and Care Plan Sarahi Nice RN assumed care of pt at time of their arrival to room 362 from [facility]. Pt voices shortness of breath at [...] VTE (Venous Thromboembolism) Risk Flowsheets (Taken 05/09/2023 8356) VTE Prevention/Management: anticoagulant therapy Intervention: Prevent Infection [...] listening utilized Taken 05/08/20231999 by Alivia Kauffman safety sealer/Support System Care: self-care encouraged support provided Problem: [...] Transfer from another hospital Location: admitted from [facility] Reason for Hospitalization: Critical aortic stenosis, causing symptoms Past medical History: Past Medical History: Diagnosis Date Anemia Hospitalizations Within the Past 30 Days: no previous admission in last 30 days Current Decision-Making Capacity: Self If AD's have not been completed the following surrogate would be surrogate decision maker per [place] surrogate decision making law. (Only good for 180 days) Any patient receiving care in [place] must abide by [place] law. The hierarchy for surrogate decision making [...] (i) The agent with financial power of litigation attorney associate or a conservator appointed in accordance with [...] DME: none Home Address confirmed as: [address] [place] [address] Social & Family Supports: All names listed [...] Type: *No Product type* / Secondary Insurance: [facility] ONLY if patient has Medicare A&B - Does this patient have secondary insurance?: Yes ; Prescription Coverage: Yes Preferred Pharmacy: updated to [facility] in [facility] Status: Patient is a : No Primary Care Provider confirmed: Magdalena Acosta MD [phone] Patient/Caregiver Goals of Treatment: Potential Needs for [...] transition of care planning. Alie Bradshaw RN, Pager-[phone] * Plan of Care - Emily Lucero RN - 05/08/2023 2:54 PM EDT OUTCOME EVALUATION NOTE: OUTCOME SUMMARY: Pt arrived from [facility]. A&O, no c/o pain or SOB. Heparin [...] AM EST Office Visit [place] [address] Magdalena Peralta MD [facility] [place] [address] 03/01/2025 4:15 PM EDT Office Visit Dermatology at [place] [address] [place] [address] Marek Bonilla MD [address], [place] [address] Scheduled Referrals Name Type Priority Associated Diagnoses [...] PM EDT BLOOD GAS ARTERIAL POC Routine 3 11:05 AM EDT BLOOD GAS ARTERIAL POC [...] Heart Cath W/Inj L Ventriculography, Img S&I ([id number]) 05/12/2023 7:37 AM EDT Aortic valve stenosis, [...] 4:42 AM EDT DIFFERENTIAL, AUTOMATED Routine 05/11/20 23 4:42 AM EDT CBC (WITH DIFF) Routine [...] 2:28 AM EDT DIFFERENTIAL, AUTOMATED Routine 05/10/20 23 2:28 AM EDT CBC (WITH DIFF) Routine [...] EST Narrative 07/08/2023 12:26 PM EST [address] [place] [address] ? Echocardiogram Report Name: KIRSTIE PURNIMA M ?Study Date: 07/08/2023 10:31 AMBP: 118/60 mmHg ? Patient Location: 4A : 1955 ? Height: 155 cm ? Account: [id number] Age: 67 yrs ? Weight: 74 kg Gender: Female ?BSA: 1.7 m2 Ordering Physician: ALIRIO HUDSON Referring Physician: VINOD JUÁREZ Performed By: Felicia Norris RDCS Reason For Study: S/P TAVR Exam Location: [facility]. Interpretation Summary Left ventricular systolic function [...] no significant change (post-procedure). Procedure Limited - 41891. Doppler - 09843. Color Doppler - 30983. Satisfactory quality. This study is limited because [...] max wero: 75.1 cm/sec MV A max weor: 102.2 cm/sec MV E/A: 0.73 MV dec [...] Note Lee Kincaid MD - 07/08/2023 [address] [place] [address] Echocardiogram Report Name: PURNIMA THACKER Study Date: 310:31 AMBP: 118/60 mmHg Patient Location: : 1955 Height: 155 cm Account: [id number] Age: 67 yrs Weight: 74 kg Gender: Female BSA: 1.7 m2 Ordering Physician: ALIRIO HUDSON Referring Physician: VINOD JUÁREZ Performed By: Felicia Norris RDCS Reason For Study: S/P TAVR Exam Location: [facility]. Interpretation Summary Left ventricular systolic function [...] is nosignificant change (post-procedure). Procedure Limited - 79047. Doppler - 22308. Color Doppler - 49533. Satisfactoryquality. This study is limited because of [...] EST) Glucose 93 65 - 199 mg/dL [facility] Comment:Diabetes: >=200 mg/d L plus symptoms Blood Urea Nitrogen 19(H) 8 - 18 mg/dL [facility] Creatinine 0.81 0.70 - 1.20 mg/dL [facility] Sodium 142 135 - 145 mmol/L [facility]. [facility] Potassium 3.8 3.5 - 5.0 mmol/L [facility] Comment: Please note: ??Patients with WBC >100,000 may have falsely elevated Potassium levels. ??For accurate Potassium quantification in these patients send serum separator tube (gold top) for subsequent determinations. ??Contact the Clinical Chemistry Laboratory if there are any questions. Chloride 104 98 - 107 mmol/L [facility] Carbon Dioxide 26 22 - 31 mmol/L [facility] Anion Gap 12 5 - 15 mmol/L [facility] Calcium 10.2 8.5 - 10.5 mg/dL [facility] Protein, Total 7.4 6.1 - 8.0 g/dL [facility] Albumin 4.1 3.2 - 5.2 g/dL [facility] Aspartate Aminotransferase 24 0 - 30 unit/L [facility] Alanine Aminotransferase 12 0 - 30 unit/L [facility] Alkaline Phosphatase 93 35 - 105 unit/L [facility] Bilirubin, Total 0.3 0.2 - 1.3 mg/dL [facility] Est Glomerular Filtration Rate 80 >=60 mL/min/1. 73 m?? [facility] Comment: This patient's estimated [...] Alirio Hudson MD CHEMISTRY ORDERABLE S [facility] [place] [address] * (ABNORMAL) Basic Metabolic Panel (non-fasting) (05/22/2023 3:57 AM EDT) Glucose 88 65 - 199 mg/dL [facility] Comment:Diabetes: >=200 mg/d L plus symptoms Blood Urea Nitrogen 21(H) 8 - 18 mg/dL [facility] Creatinine 0.69(L) 0.70 - 1.20 mg/dL [facility] Sodium 136 135 - 145 mmol/L [facility] Potassium 3.6 3.5 - 5.0 mmol/L [facility] Comment: Please note: ??Patients with WBC >100,000 may have falsely elevated Potassium levels. ??For accurate Potassium quantification in these patients send serum separator tube (gold top) for subsequent determinations. ??Contact the Clinical Chemistry Laboratory if there are any questions. Chloride 102 98 - 107 mmol/L [facility] Carbon Dioxide 23 22 - 31 mmol/L [facility] Anion Gap 11 5 - 15 mmol/L [facility] Calcium 8.6 8.5 - 10.5 mg/dL [facility] Est Glomerular Filtration Rate 95 >=60 mL/min/1. 73 m?? [facility] Comment: This patient's estimated [...] Lab Mara Maggie OSBORN CHEMISTRY ORDERABL ES [facility] [place] [address] * (ABNORMAL) Basic Metabolic Panel (non-fasting) (05/21/2023 5:06 AM EDT) Glucose 87 65 - 199 mg/dL [facility] Comment:Diabetes: >=200 mg/d L plus symptoms Blood Urea Nitrogen 25(H) 8 - 18 mg/dL [facility] Creatinine 0.84 0.70 - 1.20 mg/dL [facility] Sodium 136 135 - 145 mmol/L [facility] Potassium 3.6 3.5 - 5.0 mmol/L [facility] Comment: Please note: ??Patients with WBC >100,000 may have falsely elevated Potassium levels. ??For accurate Potassium quantification in these patients send serum separator tube (gold top) for subsequent determinations. ??Contact the Clinical Chemistry Laboratory if there are any questions. Chloride 102 98 - 107 mmol/L [facility] Carbon Dioxide 26 22 - 31 mmol/L [facility] Anion Gap 8 5 - 15 mmol/L [facility] Calcium 8.9 8.5 - 10.5 mg/dL [facility] Est Glomerular Filtration Rate 76 >=60 mL/min/1. 73 m?? [facility] Comment: This patient's estimated [...] Narrative Resulting Agency Comment Spec In Lab [facility] CHIEF PSYCHOLOGY CHEMISTRY ORDERABL ES Performing Organization Address [facility] Co de Phone Number [facility] [place] [address] * Lavender Tube HOLD (05/20/2023 2:52 AM EDT) Lavender Hold Sample in lab. [facility] Blood Venous Draw / Unknown 05/20/2023 2:52 AM EDT 05/20/2023 3:04 AM EDT [facility] CHIEF PSYCHOLOGY HEMATOLOGY ORDERAB LES Performing Organization Address City/[facility]/ZIP Co de Phone Number [facility] [place] [address] * (ABNORMAL) Basic Metabolic Panel (non-fasting) (05/20/2023 2:52 AM EDT) Glucose 152 65 - 199 mg/dL [facility] Comment:Diabetes: >=200 mg/d L plus symptoms Blood Urea Nitrogen 33(H) 8 - 18 mg/dL [facility] Creatinine 0.82 0.70 - 1.20 mg/dL [facility] Sodium 137 135 - 145 mmol/L [facility] Potassium 3.7 3.5 - 5.0 mmol/L [facility] Comment: Please note: ??Patients with WBC >100,000 may have falsely elevated Potassium levels. ??For accurate Potassium quantification in these patients send serum separator tube (gold top) for subsequent determinations. ??Contact the Clinical Chemistry Laboratory if there are any questions. Chloride 99 98 - 107 mmol/L [facility] Carbon Dioxide 22 22 - 31 mmol/L [facility] Anion Gap 16(H) 5 - 15 mmol/L [facility] Calcium 9.0 8.5 - 10.5 mg/dL [facility] Est Glomerular Filtration Rate 78 >=60 mL/min/1. 73 m?? [facility] Comment: This patient's estimated [...] Lab Mara Serrano APRN CHEMISTRY ORDERABL ES [facility] [place] [address] * (ABNORMAL) Potassium (05/20/2023 2:52 AM EDT) Potassium 3.4(L) 3.5 - 5.0 mmol/L [facility] Comment: Please note: ??Patients with WBC >100,000 may have falsely elevated Potassium levels. ??For accurate Potassium quantification in these patients send serum separator tube (gold top) for subsequent determinations. ??Contact the Clinical Chemistry Laboratory if there are any questions. Blood 05/20/2023 2:52 AM EDT 05/20/2023 3:03 AM EDT Narrative Resulting Agency Comment Spec In Lab Mara Maggie CHIEF PSYCHOLOGY [place] [address] * XR Chest PA & Lateral (Generic) [...] questions please contact the health health care recruiter that requested your imaging first. ? Electronically signed by: Chyna Johnson MD, [facility] ??([phone]), at 05/19/2023 2:19 PM Narrative 05/19/2023 2:19 [...] have questions please contactthe health health care recruiter that requested your imaging first. Alirio Hudson MD IMG DX ORDERABLES * (ABNORMAL) Basic Metabolic Panel (non-fasting) (05/19/2023 5:49 AM EDT) Glucose 93 65 - 199 mg/dL [facility] Comment:Diabetes: >=200 mg/d L plus symptoms Blood Urea Nitrogen 45(H) 8 - 18 mg/dL [facility] Creatinine 1.02 0.70 - 1.20 mg/dL [facility] Sodium 138 135 - 145 mmol/L [facility] Potassium 3.9 3.5 - 5.0 mmol/L [facility] Comment: Please note: ??Patients with WBC >100,000 may have falsely elevated Potassium levels. ??For accurate Potassium quantification in these patients send serum separator tube (gold top) for subsequent determinations. ??Contact the Clinical Chemistry Laboratory if there are any questions. Chloride 102 98 - 107 mmol/L [facility] Carbon Dioxide 26 22 - 31 mmol/L [facility] Anion Gap 10 5 - 15 mmol/L [facility] Calcium 9.7 8.5 - 10.5 mg/dL [facility] Est Glomerular Filtration Rate 60 >=60 mL/min/1. 73 m?? [facility] Comment: This patient's estimated [...] Agency Comment Spec In Lab Mara Serrano CHIEF PSYCHOLOGY CHEMISTRY ORDERABL ES Performing Organization Address City/State/[facility] Co de Phone Number [facility] [place] [address] * IR Chest Tube Placement Right (05/18/2023 [...] Kristopher Salgado MD 05/18/2023 Alirio Hudson MD IM IR ORDERABLES * (ABNORMAL) Basic Metabolic Panel (non-fasting) (05/18/2023 2:54 AM EDT) Glucose 95 65 - 199 mg/dL [facility] Comment:Diabetes: >=200 mg/d L plus symptoms Blood Urea Nitrogen 71(H) 8 - 18 mg/dL [facility] Comment:result rechecked-[facility] Creatinine 1.64(H) 0.70 - 1.20 mg/dL [facility] Comment:result rechecked-[facility] Sodium 137 135 - 145 mmol/L [facility] Potassium 3.7 3.5 - 5.0 mmol/L [facility] Comment: Please note: ??Patients with WBC >100,000 may have falsely elevated Potassium levels. ??For accurate Potassium quantification in these patients send serum separator tube (gold top) for subsequent determinations. ??Contact the Clinical Chemistry Laboratory if there are any questions. Chloride 100 98 - 107 mmol/L [facility] Carbon Dioxide 24 22 - 31 mmol/L [facility] Anion Gap 13 5 - 15 mmol/L [facility] Calcium 9.7 8.5 - 10.5 mg/dL [facility] Est Glomerular Filtration Rate 34(L) >=60 mL/min/1. 73 m?? [facility] Comment: This patient's estimated [...] Agency Comment Spec In Lab Mara Serrano CHIEF PSYCHOLOGY CHEMISTRY ORDERABL ES [facility] [place] [address] * XR Chest PA & Lateral (Generic) [...] questions please contact the health health care recruiter that requested your imaging first. ? Narrative [...] have questions please contactthe health health care recruiter that requested your imaging first. Alirio Hudson MD IMG DX ORDERABLES * (ABNORMAL) Comprehensive metabolic panel (non-fasting) (05/17/2023 4:35 AM EDT) Glucose 89 65 - 199 mg/dL [facility] Comment:Diabetes: >=200 mg/d L plus symptoms Blood Urea Nitrogen 97(H) 8 - 18 mg/dL [facility] Creatinine 2.97(H) 0.70 - 1.20 mg/dL [facility] Comment:result rechecked-OG Sodium 135 135 - 145 mmol/L [facility] Potassium 4.1 3.5 - 5.0 mmol/L [facility] Comment: Please note: ??Patients with WBC >100,000 may have falsely elevated Potassium levels. ??For accurate Potassium quantification in these patients send serum separator tube (gold top) for subsequent determinations. ??Contact the Clinical Chemistry Laboratory if there are any questions. Chloride 97(L) 98 - 107 mmol/L [facility] Carbon Dioxide 22 22 - 31 mmol/L [facility] Anion Gap 16(H) 5 - 15 mmol/L [facility] Calcium 9.6 8.5 - 10.5 mg/dL [facility] Protein, Total 6.5 6.1 - 8.0 g/dL [facility] Albumin 3.7 3.2 - 5.2 g/dL [facility] Aspartate Aminotransferase 58(H) 0 - 30 unit/L [facility] Alanine Aminotransferase 66(H) 0 - 30 unit/L [facility] Alkaline Phosphatase 86 35 - 105 unit/L [facility] Bilirubin, Total 0.6 0.2 - 1.3 mg/dL [facility] Est Glomerular Filtration Rate 17(L) >=60 mL/min/1. 73 m?? [facility] Comment: This patient's estimated [...] MD CHEMISTRY ORDERABLE S Performing Organization Address [facility] Co de Phone Number [facility] [place] [address] * Potassium (05/16/2023 11:15 PM EDT) Potassium 3.7 3.5 - 5.0 mmol/L [facility] Comment: Please note: ??Patients [...] MD CHEMISTRY ORDERABLE S Performing Organization Address [facility] Co de Phone Number [facility] [place] [address] * Magnesium (05/16/2023 5:22 PM EDT) Magnesium 0.96 0.69 - 1.07 mmol/L [facility] Blood 05/16/2023 5:22 PM EDT 05/16/2023 5:27 PM EDT Narrative Resulting Agency Comment Spec In Lab Alirio Hudson MD CHEMISTRY ORDERABLE S Performing Organization Address [facility] Co de Phone Number [facility] [place] [address] * (ABNORMAL) Basic Metabolic Panel (non-fasting) (05/16/2023 5:22 PM EDT) Glucose 106 65 - 199 mg/dL [facility] Comment:Diabetes: >=200 mg/d L plus symptoms Blood Urea Nitrogen 103(H) 8 - 18 mg/dL [facility] Creatinine 3.91(H) 0.70 - 1.20 mg/dL [facility] Comment:result rechecked-imm Sodium 132(L) 135 - 145 mmol/L [facility] Potassium 3.6 3.5 - 5.0 mmol/L [facility] Comment: Please note: ??Patients with WBC >100,000 may have falsely elevated Potassium levels. ??For accurate Potassium quantification in these patients send serum separator tube (gold top) for subsequent determinations. ??Contact the Clinical Chemistry Laboratory if there are any questions. Chloride 92(L) 98 - 107 mmol/L [facility] Carbon Dioxide 22 22 - 31 mmol/L [facility] Anion Gap 18(H) 5 - 15 mmol/L [facility] Calcium 9.7 8.5 - 10.5 mg/dL [facility] Est Glomerular Filtration Rate 12(L) >=60 mL/min/1. 73 m?? [facility] Comment: This patient's estimated [...] City/State/[facility] Co de Phone Number [facility] [place] [address] * (ABNORMAL) Potassium (05/16/2023 11:43 AM EDT) Potassium 3.3(L) 3.5 - 5.0 mmol/L [facility] Comment: Please note: ??Patients [...] MD CHEMISTRY ORDERABLE S Performing Organization Address City/[facility] Co de Phone Number [facility] [place] [address] * (ABNORMAL) Ferritin (05/16/2023 4:41 AM EDT) Ferritin 1,813(H) 30 - 400 ng/mL [facility] Comment: Pediatric reference ranges [place] [facility] interpret with caution. Reference ranges for females greater than 50 years of age approach values for men, i.e., 30-400 ng/mL. Blood 05/16/2023 4:41 AM EDT 05/16/2023 4:54 AM EDT Narrative Resulting Agency Comment Spec In Lab Kristopher Ayoub MD CHEMISTRY ORDERABLES Performing Organization Address [facility] Co de Phone Number [facility] [place] [address] * (ABNORMAL) PTH (05/16/2023 4:41 AM EDT) Parathyroid Hormone 120(H) 15 - 65 pg/mL [facility] Blood 05/16/2023 4:41 AM EDT 05/16/2023 4:54 AM EDT Narrative Resulting Agency Comment Spec In Lab Kristopher Ayoub MD CHEMISTRY ORDERABLES Performing Organization Address City/[facility] Co de Phone Number [facility] [place] [address] * Vitamin D, 25-Hydroxy (05/16/2023 4:41 AM EDT) Vitamin D Total 25 OH 33 21 - 100 ng/mL [facility] Vit D Interp Sufficient [facility] Blood 05/16/2023 4:41 AM EDT 05/16/2023 4:54 AM EDT Narrative Resulting Agency Comment Spec In Lab Kristopher Ayoub MD CHEMISTRY ORDERABLES [facility] [place] [address] * (ABNORMAL) Blood Gas Venous ([facility]) (05/16/2023 4:22 AM EDT) pH, Venous 7.41 7.32 - 7.42 [facility] PCO2, Venous 32(L) 41 - [address] [facility] PO2, Venous 73(H) 25 - [address] [facility] Bicarbonate, Venous 19.6 mmol/L [facility] Base Excess, Venous -5.1 mmol/L [facility] Hgb Blood Gas 9.7(L) 11.7 - 15.5 g/dL [facility] Oxyhemoglobin, Venous 92.8 % [facility] Carboxyhemoglob in, Venous 0.1 % [facility] Comment: Nonsmokers: 0.5-1.5% COHB Smokers: Variable, but usually less than 10% Toxic: 20-30% COHB Lethal: Greater than 60% COHB Methemoglobin, Venous 0.3 <=1.5 % [facility] Na Whole Blood 130(L) 135 - 145 mmol/L [facility] K Whole Blood 3.7 3.5 - 5.0 mmol/L [facility] Comment: Please note: Patients with WBC >100,000 may have falsely elevated Potassium levels. Contact the Clinical Chemistry Laboratory if there are any questions. ICa Whole Blood 1.15 1.15 - 1.33 mmol/L [facility] Comment: Note: ??Total bilirubin higher than 20 mg/dL may lead to falsely low ionized calcium. CL Whole Blood 95(L) 98 - 107 mmol/L [facility] Gluc Whole Bld 82 65 - 199 mg/dL [facility] Comment:Diabetes: >=200 mg/d L plus symptoms Lactate WB 1.1 0.5 - 2.2 mmol/L [facility] Blood Gas Source Venous [facility] Blood Venous Draw / Unknown 05/16/2023 4:22 AM EDT 05/16/2023 4:31 AM EDT Narrative Resulting Agency Comment Spec In Lab Bonita [place] [address] * (ABNORMAL) Differential, Automated (05/16/2023 4:20 AM EDT) Neutrophil % 84.1 % [facility] Neutrophil Absolute 6.22(H) 1.70 - 6.10 x10(3)/mc L [facility] Lymph % 5.8 % [facility] Lymphocytes Abs 0.4(L) 0.9 - 3.2 x10(3)/mc L [facility] Monocyte % 8.8 % [facility] Monocyte Abs 0.6 0.3 - 0.9 x10(3)/ L [facility] Eos % 0.4 % [facility] Eosinophils Abs 0.0 0.0 - 0.4 x10(3)/ L [facility] Basophil % 0.0 % [facility] Baso Absolute 0.0 0.0 - 0.1 x10(3)/ L [facility] Immature Gran % 0.90 % [facility] Comment: Immature granulocytes(IG's)percentage and absolute count will include metamyelocytes, myelocytes, and promyelocytes. Blood smears from CBCs yielding IG's will be scanned manually for concordance. If this scan disagrees with the automated IG or if promyelocytes are noted, a manual differential will be performed. Immature Gran Absolute 0.07(H) 0.00 - 0.04 x10(3)/ L [facility] Blood 05/16/2023 4:20 AM EDT 05/16/2023 4:29 AM EDT Narrative Resulting Agency Comment Spec In Lab James Agustin MD [place] [address] * (ABNORMAL) Hemogram (05/16/2023 4:20 AM EDT) White Blood Cell 7.4 4.0 - 9.5 x10(3)/mc L [facility] Red Blood Cell 2.40(L) 4.00 - 5.21 x10(6)/mc L [facility] Hemoglobin 7.8(L) 11.7 - 15.5 g/dL [facility] Hematocrit 22.5(L) 35.7 - 45.8 % [facility] Mean Cell Volume 93.8 82.6 - 94.[address] [facility] Mean Cell Hemoglobin 32.5(H) 27.1 - 32.[address] [facility] Mean Cell Hemoglobin Concentration 34.7 31.7 - 35.0 g/dL [facility] Platelet 120(L) 145 - 357 x10(3)/mc L [facility] RDW Standard Deviation 42.9 37.0 - 46.[address] [facility] RDW coefficient of variation 12.9 11.5 - 14.1 % [facility] Mean Platelet Volume 11.3 7.6 - 12.9 fL [facility] NRBC% auto 0.7 % [facility] NRBC Absolute 0.050(H) 0.000 - 0.000 x10(3)/ L [facility] Blood 05/16/2023 4:20 AM EDT 05/16/2023 4:29 AM EDT Narrative Resulting Agency Comment Spec In Lab James Agustin MD HEMATOLOGY ORDER JODIE [facility] [place] [address] * (ABNORMAL) Basic Metabolic Panel (non-fasting) (05/16/2023 4:20 AM EDT) Glucose 89 65 - 199 mg/dL [facility] Comment:Diabetes: >=200 mg/d L plus symptoms Blood Urea Nitrogen 108(H) 8 - 18 mg/dL [facility] Creatinine 4.74(H) 0.70 - 1.20 mg/dL [facility] Comment:result rechecked-[place] Sodium 132(L) 135 - 145 mmol/L [facility] Potassium 3.9 3.5 - 5.0 mmol/L [facility] Comment: Please note: ??Patients with WBC >100,000 may have falsely elevated Potassium levels. ??For accurate Potassium quantification in these patients send serum separator tube (gold top) for subsequent determinations. ??Contact the Clinical Chemistry Laboratory if there are any questions. Chloride 95(L) 98 - 107 mmol/L [facility] Carbon Dioxide 18(L) 22 - 31 mmol/L [facility] Anion Gap 19(H) 5 - 15 mmol/L [facility] Calcium 9.2 8.5 - 10.5 mg/dL [facility] Est Glomerular Filtration Rate 10(L) >=60 mL/min/1. 73 m?? [facility] Comment: This patient's estimated [...] MD CHEMISTRY ORDERABLE S Performing Organization Address City/[facility]/ZIP Co de Phone Number [facility] [place] [address] * (ABNORMAL) Iron and TIBC (05/16/2023 4:20 AM EDT) Iron 31 30 - 150 mcg/dL [facility] TIBC 259 250 - 450 mcg/dL [facility] Iron Saturation 12(L) 20 - 50 % [facility] Blood 05/16/2023 4:20 AM EDT 05/16/2023 4:29 AM EDT Narrative Resulting Agency Comment Spec In Lab Kristopher Ayoub MD CHEMISTRY ORDERABLES Performing Organization Address City/[facility]/ZIP Co de Phone Number [facility] [place] [address] * (ABNORMAL) Basic Metabolic Panel (non-fasting) (05/15/2023 12:50 AM EDT) Glucose 101 65 - 199 mg/dL [facility] Comment:Diabetes: >=200 mg/d L plus symptoms Blood Urea Nitrogen 109(H) 8 - 18 mg/dL [facility] Creatinine 5.62(H) 0.70 - 1.20 mg/dL [facility] Comment:result rechecked-[place] Sodium 131(L) 135 - 145 mmol/L [facility] Comment:result rechecked-[place] Potassium 3.7 3.5 - 5.0 mmol/L [facility] Comment: result rechecked-[place] Please note: ??Patients with WBC >100,000 may have falsely elevated Potassium levels. ??For accurate Potassium quantification in these patients send serum separator tube (gold top) for subsequent determinations. ??Contact the Clinical Chemistry Laboratory if there are any questions. Chloride 92(L) 98 - 107 mmol/L [facility] Comment:result rechecked-[place] Carbon Dioxide 18(L) 22 - 31 mmol/L [facility] Comment:result rechecked-[place] Anion Gap 21(H) 5 - 15 mmol/L [facility] Calcium 8.9 8.5 - 10.5 mg/dL [facility] Est Glomerular Filtration Rate 8(L) >=60 mL/min/1. 73 m?? [facility] Comment: This patient's estimated [...] MD CHEMISTRY ORDERABLE S Performing Organization Address City/[facility]/ZIP Co de Phone Number [facility] [place] [address] * (ABNORMAL) Hemogram (05/15/2023 12:50 AM EDT) White Blood Cell 9.1 4.0 - 9.5 x10(3)/mc L [facility] Red Blood Cell 2.19(L) 4.00 - 5.21 x10(6)/mc L [facility] Hemoglobin 7.2(L) 11.7 - 15.5 g/dL [facility] Hematocrit 20.6(L) 35.7 - 45.8 % [facility] Mean Cell Volume 94.1 82.6 - 94.[address] [facility] Mean Cell Hemoglobin 32.9(H) 27.1 - 32.[address] [facility] Mean Cell Hemoglobin Concentration 35.0 31.7 - 35.0 g/dL [facility] [facility] Platelet 109(L) 145 - 357 x10(3)/mc L [facility] RDW Standard Deviation 43.6 37.0 - 46.[address] [facility] RDW coefficient of variation 12.9 11.5 - 14.1 % [facility] Mean Platelet Volume 10.4 7.6 - 12.[address] [facility] NRBC% auto 2.1 % [facility] NRBC Absolute 0.190(H) 0.000 - 0.000 x10(3)/mc L [facility] Blood 05/15/2023 12:5 0 AM EDT 05/15/2023 12:52 AM EDT Narrative Resulting Agency Comment Spec In Lab Alirio Hudson MD HEMATOLOGY ORDERABL ES Performing Organization Address [facility]/ZIP Co de Phone Number [facility] [place] [address] * (ABNORMAL) BLOOD GAS 2 VENOUS (05/15/2023 12:49 AM EDT) pH, Venous 7.33 7.32 - 7.42 [facility] PCO2, Venous 37(L) 41 - 51 mmHg [facility] PO2, Venous 34 25 - 40 mmHg [facility] Bicarbonate, Venous 19.1 mmol/L [facility] Base Excess, Venous -6.8 mmol/L [facility] Hgb Blood Gas 10.8(L) 11.7 - 15.5 g/dL [facility] Oxyhemoglobin, Venous 58.1 % [facility] Carboxyhemoglob in, Venous 0.3 % [facility] Comment: Nonsmokers: 0.5-1.5% COHB Smokers: Variable, but usually less than 10% Toxic: 20-30% COHB Lethal: Greater than 60% COHB Methemoglobin, Venous 0.6 <=1.5 % [facility] Na Whole Blood 136 135 - 145 mmol/L [facility] K Whole Blood 3.7 3.5 - 5.0 mmol/L [facility] Comment: Please note: Patients with WBC >100,000 may have falsely elevated Potassium levels. Contact the Clinical Chemistry Laboratory if there are any questions. ICa Whole Blood 1.12(L) 1.15 - 1.33 mmol/L [facility] Comment: Note: ??Total bilirubin higher than 20 mg/dL may lead to falsely low ionized calcium. CL Whole Blood 95(L) 98 - 107 mmol/L [facility] Gluc Whole Bld 101 65 - 199 mg/dL [facility] Comment:Diabetes: >=200 mg/d L plus symptoms Lactate WB 1.3 0.5 - 2.2 mmol/L [facility] Flow, Mike 1.0 LPM [facility] Blood Gas Source Venous [facility] Blood 05/15/2023 12:4 9 AM EDT 05/15/2023 12:49 AM EDT Alirio Hudson MD POINT OF CARE TEST ORDERABLES [facility] [place] [address] * US Retroperitoneal Complete (05/14/2023 3:53 PM [...] who have questions, please contact the health health care recruiter that requested your imaging first. ? Hayden Robledo, Staff Physician Electronically Signed Final Report ?? 05/14/2023 04:39 pm Narrative 05/14/2023 4:39 PM EDT Renal ? (Signed Final 05/14/2023 04:39 pm) PATIENT INFO: ID #: ? [id number] ?: ??55 (67 yrs)(F) Name: ? PURNIMA Magalie KIRSTIE ?Visit Date: 05/14/2023 03:44 pm PERFORMED BY: Attending: ?Meena CULP, Hayden Stafford Resident: ? Anand Camejo MD Performed By: ? Consuelo Tello RDMS Referred By: ?ALIRIO P BECCA Location: ? [place] SERVICE(S) PROVIDED: URETRO - Retroperitoneal Complete - [id number] ? [id number] INDICATIONS: [facility] COMPARISON: CT: Abdomen/Pelvis 05/11/23 RIGHT [...] 05/14/2023 04:39 pm) PATIENT INFO: ID #: [id number] : 55 (67 yrs)(F) Name: PURNIMA THACKER Visit Date: 05/14/2023 03:44 pm PERFORMED BY: Attending: Hayden Robledo MD Resident: Anand Camejo MD Performed By: Consuelo Tello RDMS Referred By: ALIRIO HUDSON Location: [place] SERVICE(S) PROVIDED: URETRO - Retroperitoneal Complete - [id number] INDICATIONS: [facility] COMPARISON: CT: Abdomen/Pelvis 05/11/23 RIGHT [...] who have questions, please contact the health health care recruiter that requested your imaging first. Hayden Robledo, Staff Physician Electronically Signed Final Report 05/14/2023 04:39 pm Alirio Hudson MD IMG US GEN ORDERABL ES * CK (05/14/2023 3:17 PM EDT) Creatine Kinase 123 0 - 160 unit/L [facility] Blood 05/14/2023 3:17 PM EDT 05/14/2023 3:31 PM EDT Narrative Resulting Agency Comment Spec In Lab Alirio Hudson MD CHEMISTRY ORDERABLE S Performing Organization Address City/[facility]/ZIP Co de Phone Number [facility] [place] [address] * (ABNORMAL) Uric acid (05/14/2023 3:17 PM EDT) Uric Acid 14.9(H) 2.5 - 6.5 mg/dL [facility] Blood 05/14/2023 3:17 PM EDT 05/14/2023 3:31 PM EDT Narrative Resulting Agency Comment Spec In Lab Alirio Hudson MD CHEMISTRY ORDERABLE S Performing Organization Address City/[facility]/ZIP Co de Phone Number [facility] [place] [address] * (ABNORMAL) Osmolality (05/14/2023 3:17 PM EDT) Osmolality 311(H) 275 - 295 mOsm/kg [facility] Blood 05/14/2023 3:17 PM EDT 05/14/2023 3:31 PM EDT Narrative Resulting Agency Comment Spec In Lab Alirio Hudson MD CHEMISTRY ORDERABLE S [facility] [place] [address] * (ABNORMAL) Differential, Automated (05/14/2023 1:10 AM EDT) Neutrophil % 87.2 % [facility] Neutrophil Absolute 9.74(H) 1.70 - 6.10 x10(3)/mc L [facility] Lymph % 3.9 % [facility] Lymphocytes Abs 0.4(L) 0.9 - 3.2 x10(3)/mc L [facility] Monocyte % 7.9 % [facility] Monocyte Abs 0.9 0.3 - 0.9 x10(3)/mc L [facility] Eos % 0.0 % [facility] Eosinophils Abs 0.0 0.0 - 0.4 x10(3)/mc L [facility] Basophil % 0.1 % [facility] Baso Absolute 0.0 0.0 - 0.1 x10(3)/mc L [facility] Immature Gran % 0.90 % [facility] Comment: Immature granulocytes(IG's)percentage and absolute count will include metamyelocytes, myelocytes, and promyelocytes. Blood smears from CBCs yielding IG's will be scanned manually for concordance. If this scan disagrees with the automated IG or if promyelocytes are noted, a manual differential will be performed. Immature Gran Absolute 0.10(H) 0.00 - 0.04 x10(3)/mc L [facility] Blood 05/14/2023 1:10 AM EDT 05/14/2023 1:24 AM EDT Narrative Resulting Agency Comment Spec In Lab Bonita TOBAR HEMATOLOGY ORDERABLE S [facility] [place] [address] * (ABNORMAL) Hemogram (05/14/2023 1:10 AM EDT) White Blood Cell 11.2(H) 4.0 - 9.5 x10(3)/mc L [facility] Red Blood Cell 2.19(L) 4.00 - 5.21 x10(6)/mc L [facility] Hemoglobin 7.2(L) 11.7 - 15.5 g/dL [facility] Hematocrit 20.3(L) 35.7 - 45.8 % [facility] Mean Cell Volume 92.7 82.6 - 94.[address] [facility] Mean Cell Hemoglobin 32.9(H) 27.1 - 32.[address] [facility] Mean Cell Hemoglobin Concentration 35.5(H) 31.7 - 35.0 g/dL [facility] Platelet 112(L) 145 - 357 x10(3)/mc L [facility] RDW Standard Deviation 41.4 37.0 - 46.[address] [facility] RDW coefficient of variation 12.5 11.5 - 14.1 % [facility] Mean Platelet Volume 10.4 7.6 - 12.[address] [facility] NRBC% auto 1.5 % [facility] NRBC Absolute 0.170(H) 0.000 - 0.000 x10(3)/mc L [facility] Blood 05/14/2023 1:10 AM EDT 05/14/2023 1:24 AM EDT Narrative Resulting Agency Comment Spec In Lab Bonita TOBAR HEMATOLOGY ORDERABLE S [facility] [place] [address] * (ABNORMAL) Comprehensive metabolic panel (non-fasting) (05/14/2023 1:10 AM EDT) Glucose 120 65 - 199 mg/dL [facility] Comment:Diabetes: >=200 mg/d L plus symptoms Blood Urea Nitrogen 98(H) 8 - 18 mg/dL [facility] Creatinine 4.80(H) 0.70 - 1.20 mg/dL [facility] Comment:result rechecked-ssc Sodium 132(L) 135 - 145 mmol/L [facility] Potassium 4.1 3.5 - 5.0 mmol/L [facility] Comment: Please note: ??Patients with WBC >100,000 may have falsely elevated Potassium levels. ??For accurate Potassium quantification in these patients send serum separator tube (gold top) for subsequent determinations. ??Contact the Clinical Chemistry Laboratory if there are any questions. Chloride 94(L) 98 - 107 mmol/L [facility] Carbon Dioxide 18(L) 22 - 31 mmol/L [facility] Anion Gap 20(H) 5 - 15 mmol/L [facility] Calcium 8.5 8.5 - 10.5 mg/dL [facility] Protein, Total 5.8(L) 6.1 - 8.0 g/dL [facility] Albumin 3.6 3.2 - 5.2 g/dL [facility] Aspartate Aminotransferase 319(H) 0 - 30 unit/L [facility] Alanine Aminotransferase 437(H) 0 - 30 unit/L [facility] Alkaline Phosphatase 86 35 - 105 unit/L [facility] Bilirubin, Total 0.4 0.2 - 1.3 mg/dL [facility] Est Glomerular Filtration Rate 9(L) >=60 mL/min/1. 73 m?? [facility] Comment: This patient's estimated [...] Alirio Hudson MD CHEMISTRY ORDERABLE S [facility] [place] [address] * APTT (05/13/2023 10:15 AM EDT) Partial Thromboplastin Time 27 25 - [address] [facility] Comment: The PTT is NOT appropriate for heparin monitoring. Use the Anti-Xa level for heparin monitoring (HEP UFH) or LMWH monitoring (HEP LMW). A PTT less than 37 seconds generally indicates adequate hemostasis. Blood 05/13/2023 10:1 5 AM EDT 05/13/2023 10:46 AM EDT Narrative Resulting Agency Comment Spec In Lab Alirio Hudson MD HEMATOLOGY ORDERABL ES Performing Organization Address [facility] de Phone Number [facility] [place] [address] * (ABNORMAL) Prothrombin Time (05/13/2023 10:15 AM EDT) Prothrombin Time 14.6(H) 9.4 - 12.5 sec [facility] International Normalization Ratio 1.3 [facility] Comment: An INR <2.0 indicates [...] MD HEMATOLOGY ORDERABL ES Performing Organization Address [facility] Co de Phone Number [facility] [place] [address] * EKG 12 Lead (05/13/2023 9:22 AM EDT) Ventricular rate 92 BPM MUSE SYSTEM Atrial Rate 92 BPM MUSE SYSTEM P-R Interval 140 ms MUSE SYSTEM QRS Duration 104 ms MUSE SYSTEM Q-T Interval 384 ms MUSE SYSTEM QTC Calculated (Bezet) 474 ms MUSE SYSTEM Calculated P Eccles 33 degrees MUSE SYSTEM Calculated R Eccles 41 degrees MUSE SYSTEM Calculated T Eccles -35 degrees MUSE SYSTEM INTERPRETATION Sinus rhythm with frequent Premature ventricular complexes Septal infarct , age undetermined ST & T wave abnormality, consider lateral ischemia Abnormal ECG When compared with ECG of 12-MAY-2023 10:10, Premature ventricular complexes are now Present I personally reviewed the tracing and edited the fellows interpretation Confirmed by fellow MD Anitha, Carissa ([id number]) on 05/13/2023 3:25:30 PM Confirmed by Maxx Best ([id number]) on 05/13/2023 8:30:56 PM MUSE SYSTEM 05/13/2023 9:22 AM EDT 05/13/2023 8:30 PM EDT Alirio Hudson MD ECG ORDERABLES MUSE SYSTEM * (ABNORMAL) Differential, Automated (05/13/2023 1:15 AM EDT) Neutrophil % 88.1 % [facility] Neutrophil Absolute 7.62(H) 1.70 - 6.10 x10(3)/mc L [facility] Lymph % 3.1 % [facility] Lymphocytes Abs 0.3(L) 0.9 - 3.2 x10(3)/mc L [facility] Monocyte % 7.9 % [facility] Monocyte Abs 0.7 0.3 - 0.9 x10(3)/mc L [facility] Eos % 0.0 % [facility] Eosinophils Abs 0.0 0.0 - 0.4 x10(3)/mc L [facility] Basophil % 0.1 % [facility] Baso Absolute 0.0 0.0 - 0.1 x10(3)/mc L [facility] Immature Gran % 0.80 % [facility] Comment: Immature granulocytes(IG's)percentage and absolute count will include metamyelocytes, myelocytes, and promyelocytes. Blood smears from CBCs yielding IG's will be scanned manually for concordance. If this scan disagrees with the automated IG or if promyelocytes are noted, a manual differential will be performed. Immature Gran Absolute 0.07(H) 0.00 - 0.04 x10(3)/mc L [facility] Blood 05/13/2023 1:15 AM EDT 05/13/2023 1:29 AM EDT Narrative Resulting Agency Comment Spec In Lab Lorri TOBAR HEMATOLOGY ORDERABLE S Performing Organization Address City/[facility]/ZIP Co de Phone Number [facility] [place] [address] * (ABNORMAL) Hemogram (05/13/2023 1:15 AM EDT) White Blood Cell 8.6 4.0 - 9.5 x10(3)/mc L [facility] Red Blood Cell 2.37(L) 4.00 - 5.21 x10(6)/mc L [facility] Hemoglobin 7.8(L) 11.7 - 15.5 g/dL [facility] Hematocrit 22.2(L) 35.7 - 45.8 % [facility] Mean Cell Volume 93.7 82.6 - 94.[address] [facility] Mean Cell Hemoglobin 32.9(H) 27.1 - 32.[address] [facility] Mean Cell Hemoglobin Concentration 35.1(H) 31.7 - 35.0 g/dL [facility] Platelet 130(L) 145 - 357 x10(3)/mc L [facility] RDW Standard Deviation 41.7 37.0 - 46.[address] [facility] RDW coefficient of variation 12.5 11.5 - 14.1 % [facility] Mean Platelet Volume 10.2 7.6 - 12.9 fL [facility] NRBC% auto 0.5 % [facility] NRBC Absolute 0.040(H) 0.000 - 0.000 x10(3)/mc L [facility] Blood 05/13/2023 1:15 AM EDT 05/13/2023 1:29 AM EDT Narrative Resulting Agency Comment Spec In Lab Lorri TOBAR HEMATOLOGY ORDERABLE S Performing Organization Address City/[facility]/ZIP Co de Phone Number [facility] [place] [address] * (ABNORMAL) Hepatic Function Panel (05/13/2023 1:15 AM EDT) Protein, Total 5.5(L) 6.1 - 8.0 g/dL [facility] Albumin 3.0(L) 3.2 - 5.2 g/dL [facility] Aspartate Aminotransferase 792(H) 0 - 30 unit/L [facility] Alanine Aminotransferase 903(H) 0 - 30 unit/L [facility] Alkaline Phosphatase 85 35 - 105 unit/L [facility] Bilirubin, Total 0.5 0.2 - 1.3 mg/dL [facility] Bilirubin, Direct 0.3 0.0 - 0.3 mg/dL [facility] Blood 05/13/2023 1:15 AM EDT 05/13/2023 1:29 AM EDT Narrative Resulting Agency Comment Spec In Lab Alirio Hudson MD CHEMISTRY ORDERABLE S Performing Organization Address [facility]/State/ZIP Co de Phone Number [facility] [place] [address] * (ABNORMAL) Basic Metabolic Panel (non-fasting) (05/13/2023 1:15 AM EDT) Glucose 107 65 - 199 mg/dL [facility] Comment:Diabetes: >=200 mg/d L plus symptoms Blood Urea Nitrogen 82(H) 8 - 18 mg/dL [facility] Creatinine 3.15(H) 0.70 - 1.20 mg/dL [facility] Comment:result rechecked-JSJ Sodium 132(L) 135 - 145 mmol/L [facility] Potassium 3.8 3.5 - 5.0 mmol/L [facility] Comment: Please note: ??Patients with WBC >100,000 may have falsely elevated Potassium levels. ??For accurate Potassium quantification in these patients send serum separator tube (gold top) for subsequent determinations. ??Contact the Clinical Chemistry Laboratory if there are any questions. Chloride 95(L) 98 - 107 mmol/L [facility] Carbon Dioxide 20(L) 22 - 31 mmol/L [facility] Anion Gap 17(H) 5 - 15 mmol/L [facility] Calcium 8.3(L) 8.5 - 10.5 mg/dL [facility] Est Glomerular Filtration Rate 16(L) >=60 mL/min/1. 73 m?? [facility] Comment: This patient's estimated [...] Alirio Hudson MD CHEMISTRY ORDERABLE S [facility] [place] [address] * (ABNORMAL) BLOOD GAS 2 ARTERIAL (05/12/2023 3:57 PM EDT) pH, Arterial 7.39 7.35 - 7.45 [facility] PCO2, Arterial 33(L) 35 - [address] [facility] PO2, Arterial 101 85 - [address] [facility] Bicarbonate, Arterial 19.5(L) 20.0 - 26.0 mmol/L [facility] Base Excess, Arterial -5.5(L) -3.0 - 3.0 mmol/L [facility] Hgb Blood Gas 9.8(L) 11.7 - 15.5 g/dL [facility] Oxyhemoglobin, Arterial 95.2 94.0 - 97.0 % [facility] Carboxyhemoglob in, Arterial 0.2 % [facility] Comment: Nonsmokers: 0.5-1.5% COHB Smokers: Variable, but usually less than 10% Toxic: 20-30% COHB Lethal: Greater than 60% COHB Methemoglobin, Arterial 0.8 <=1.5 % [facility] Na Whole Blood 129(L) 135 - 145 mmol/L [facility] K Whole Blood 3.8 3.5 - 5.0 mmol/L [facility] Comment: Please note: Patients with WBC >100,000 may have falsely elevated Potassium levels. Contact the Clinical Chemistry Laboratory if there are any questions. ICa Whole Blood 1.05(L) 1.15 - 1.33 mmol/L [facility] Comment: Note: ??Total bilirubin higher than 20 mg/dL may lead to falsely low ionized calcium. CL Whole Blood 96(L) 98 - 107 mmol/L [facility] Gluc Whole Bld 178 65 - 199 mg/dL [facility] Comment:Diabetes: >=200 mg/d L plus symptoms. Lactate WB 1.5 0.5 - 2.2 mmol/L [facility] FIO2 Art 40 % [facility] PF Ratio Art 252 [facility] Blood 05/12/2023 3:57 PM EDT 05/12/2023 3:57 PM EDT Alirio Hudson MD POINT OF CARE TEST ORDERABLES [facility] [place] [address] * (ABNORMAL) Coox2 (05/12/2023 2:25 PM EDT) pO2, Coox 37 mmHg [facility] Hgb Blood Gas 9.5(L) 11.7 - 15.5 g/dL [facility] Oxyhemoglobin, Coox 59.9 % [facility] Carboxyhemoglo bin, Coox 0.3 % [facility] Comment: Nonsmokers: 0.5-1.5% COHB Smokers: Variable, but usually less than 10% Toxic: 20-30% COHB Lethal: Greater than 60% COHB Methemoglobin, Coox 0.7 <=1.5 % [facility] Source Coox Mixed Venous [facility] Blood 05/12/2023 2:25 PM EDT 05/12/2023 2:25 PM EDT Alirio Hudson MD POINT OF CARE TEST ORDERABLES [facility] [place] [address] * (ABNORMAL) BLOOD GAS 2 ARTERIAL (05/12/2023 2:23 PM EDT) pH, Arterial 7.37 7.35 - 7.45 [facility] PCO2, Arterial 36 35 - [address] [facility] PO2, Arterial 102 85 - [address] [facility] Bicarbonate, Arterial 20.4 20.0 - 26.0 mmol/L [facility] Base Excess, Arterial -4.8(L) -3.0 - 3.0 mmol/L [facility] Hgb Blood Gas 12.7 11.7 - 15.5 g/dL [facility] Oxyhemoglobin, Arterial 95.4 94.0 - 97.0 % [facility] Carboxyhemoglob in, Arterial 0.3 % [facility] Comment: Nonsmokers: 0.5-1.5% COHB Smokers: Variable, but usually less than 10% Toxic: 20-30% COHB Lethal: Greater than 60% COHB Methemoglobin, Arterial 0.7 <=1.5 % [facility] Na Whole Blood 129(L) 135 - 145 mmol/L [facility] K Whole Blood 3.7 3.5 - 5.0 mmol/L [facility] Comment: Please note: Patients with WBC >100,000 may have falsely elevated Potassium levels. Contact the Clinical Chemistry Laboratory if there are any questions. ICa Whole Blood 1.05(L) 1.15 - 1.33 mmol/L [facility] Comment: Note: ??Total bilirubin higher than 20 mg/dL may lead to falsely low ionized calcium. CL Whole Blood 95(L) 98 - 107 mmol/L [facility] Gluc Whole Bld 168 65 - 199 mg/dL [facility] Comment:Diabetes: >=200 mg/d L plus symptoms. Lactate WB 1.8 0.5 - 2.2 mmol/L [facility] FIO2 Art 40 % [facility] PF Ratio Art 255 [facility] Blood 05/12/2023 2:23 PM EDT 05/12/2023 2:23 PM EDT Alirio Hudson MD POINT OF CARE TEST ORDERABLES [facility] [place] [address] * (ABNORMAL) Troponin (05/12/2023 2:05 PM EDT) Troponin-T, High Sensitivity 1,022(H) <=14 ng/L [facility] Comment: This patient's troponin [...] can be found in the [facility] Test Catalog Troponin - [facility] Test Catalog Reference: Fourth [place] Definition of Myocardial Infarction. Journal of the [place] [employer] 2018;72:2354-8340 Blood 05/12/2023 2:05 PM EDT 05/12/2023 2:14 PM EDT Narrative Resulting Agency Comment Spec In Lab Alirio Hudson MD CHEMISTRY ORDERABLE S Performing Organization Address City/[facility]/ZIP Co de Phone Number [facility] [place] [address] * (ABNORMAL) Hemoglobin (05/12/2023 2:05 PM EDT) Hemoglobin 8.5(L) 11.7 - 15.5 g/dL [facility] Blood 05/12/2023 2:05 PM EDT 05/12/2023 2:14 PM EDT Narrative Resulting Agency Comment Spec In Lab Alirio Hudson MD HEMATOLOGY ORDERABL ES Performing Organization Address [facility] Co de Phone Number [facility] [place] [address] * Potassium (05/12/2023 2:05 PM EDT) Potassium 3.9 3.5 - 5.0 mmol/L [facility] Comment: Please note: ??Patients [...] MD CHEMISTRY ORDERABLE S Performing Organization Address [facility] de Phone Number [facility] [place] [address] * (ABNORMAL) BLOOD GAS 2 ARTERIAL (05/12/2023 11:05 AM EDT) pH, Arterial 7.34(L) 7.35 - 7.45 [facility] PCO2, Arterial 42 35 - [address] [facility] PO2, Arterial 73(L) 85 - 104 mmHg [facility] Bicarbonate, Arterial 22.1 20.0 - 26.0 mmol/L [facility] Base Excess, Arterial -3.6(L) -3.0 - 3.0 mmol/L [facility] Hgb Blood Gas 9.3(L) 11.7 - 15.5 g/dL [facility] Oxyhemoglobin, Arterial 89.3(L) 94.0 - 97.0 % [facility] Carboxyhemoglob in, Arterial 0.2 % [facility] Comment: Nonsmokers: 0.5-1.5% COHB Smokers: Variable, but usually less than 10% Toxic: 20-30% COHB Lethal: Greater than 60% COHB Methemoglobin, Arterial 0.9 <=1.5 % [facility] Na Whole Blood 131(L) 135 - 145 mmol/L [facility] K Whole Blood 3.8 3.5 - 5.0 mmol/L [facility] Comment: Please note: Patients with WBC >100,000 may have falsely elevated Potassium levels. Contact the Clinical Chemistry Laboratory if there are any questions. ICa Whole Blood 1.04(L) 1.15 - 1.33 mmol/L [facility] [facility] Comment: Note: ??Total bilirubin higher than 20 mg/dL may lead to falsely low ionized calcium. CL Whole Blood 96(L) 98 - 107 mmol/L [facility] Gluc Whole Bld 152 65 - 199 mg/dL [facility] Comment:Diabetes: >=200 mg/d L plus symptoms. Lactate WB 2.8(H) 0.5 - 2.2 mmol/L [facility] FIO2 Art 40 % [facility] PF Ratio Art 182 [facility] Blood 05/12/2023 11:0 5 AM EDT 05/12/2023 11:05 AM EDT Alirio Hudson MD POINT OF CARE TEST ORDERABLES Performing Organization Address City/State/[facility] Co de Phone Number [facility] [place] [address] * (ABNORMAL) BLOOD GAS 2 ARTERIAL (05/12/2023 10:14 AM EDT) pH, Arterial 7.18(Criti gabrielle) 7.35 - 7.45 [facility] Comment:Noted by instrument maintenance supervisor. PCO2, Arterial 45 35 - 45 mmHg [facility] PO2, Arterial 186(H) 85 - [address] [facility] Bicarbonate, Arterial 16.2(L) 20.0 - 26.0 mmol/L [facility] Base Excess, Arterial -12.2(L) -3.0 - 3.0 mmol/L [facility] Hgb Blood Gas 10.0(L) 11.7 - 15.5 g/dL [facility] Oxyhemoglobin, Arterial 97.0 94.0 - 97.0 % [facility] Carboxyhemoglob in, Arterial 0.2 % [facility] Comment: Nonsmokers: 0.5-1.5% COHB Smokers: Variable, but usually less than 10% Toxic: 20-30% COHB Lethal: Greater than 60% COHB Methemoglobin, Arterial 0.9 <=1.5 % [facility] Na Whole Blood 129(L) 135 - 145 mmol/L [facility] K Whole Blood 3.6 3.5 - 5.0 mmol/L [facility] Comment: Please note: Patients with WBC >100,000 may have falsely elevated Potassium levels. Contact the Clinical Chemistry Laboratory if there are any questions. ICa Whole Blood 1.10(L) 1.15 - 1.33 mmol/L [facility] Comment: Note: ??Total bilirubin higher than 20 mg/dL may lead to falsely low ionized calcium. CL Whole Blood 97(L) 98 - 107 mmol/L [facility] Gluc Whole Bld 161 65 - 199 mg/dL [facility] Comment:Diabetes: >=200 mg/d L plus symptoms. Lactate WB 3.3(H) 0.5 - 2.2 mmol/L [facility] FIO2 Art 100 % [facility] PF Ratio Art 186 [facility] Blood 05/12/2023 10:1 4 AM EDT 05/12/2023 10:14 AM EDT Alirio Hudson MD POINT OF CARE TEST ORDERABLES [facility] [place] [address] * EKG 12 Lead (05/12/2023 10:10 AM EDT) Ventricular rate 116 BPM MUSE SYSTEM Atrial Rate 116 BPM MUSE SYSTEM P-R Interval 158 ms MUSE SYSTEM QRS Duration 114 ms MUSE SYSTEM Q-T Interval 348 ms MUSE SYSTEM QTC Calculated (Bezet) 483 ms MUSE SYSTEM Calculated P Eccles 37 degrees MUSE SYSTEM Calculated R Eccles 31 degrees MUSE SYSTEM Calculated T Eccles -138 degrees MUSE SYSTEM INTERPRETATION Sinus tachycardia with intermittent aberrant ventricular conduction Possible Left atrial enlargement Incomplete left bundle block Left ventricular hypertrophy with repolarization abnormality ( Sokolow-Orozco , [place] product ) ST & T wave abnormality in Inferolateral leads Abnormal ECG When compared with ECG of 10-MAY-2023 13:16, ST & T wave abnormality is more pronounced in inferolateral leads I personally reviewed the tracing and edited the fellows interpretation Confirmed by fellow MD Anuja, Jim ([id number]) on 05/12/2023 1:04:20 PM Confirmed by MD Villareal Danette ([id number]) on 05/12/2023 9:28:34 PM MUSE SYSTEM 05/12/2023 [...] questions please contact the health health care recruiter that requested your imaging first. ? Electronically signed by: Chyna Johnson MD, [facility] ??([phone]), at 05/12/2023 10:08 AM Narrative 05/12/2023 10:08 AM EDT EXAMINATION: XR CHEST ONE VIEW CLINICAL HISTORY: Post TAVR TECHNIQUE: 1 view of the chest COMPARISON: Chest radiograph from earlier today FINDINGS: Interval placement of endotracheal tube with tip terminating 2 cm above the shira. Interval placement of enteric tube projecting along the expected course of the esophagus and outside the mcsom-do-ntfl. Interval retraction of right IJ approach pulmonary [...] expected course ofthe esophagus and outside the ltqok-fl-pxtg. Interval retraction of right IJ approach pulmonary [...] have questions please contactthe health health care recruiter that requested your imaging first. Alirio Hudson MD IMG DX ORDERABLES * ECHO LMTD W/O CONTRAST W LMTD SPEC DOPP COLOR DOPP (05/12/2023 9:23 AM EDT) EF 20 HEARTLandingi SYSTEM Anatomical Region Laterality Modality Cardiac Other 05/12/2023 7:33 AM EDT Narrative 05/12/2023 10:18 AM EDT ? Echocardiogram Report Name: PURNIMA THACKER ?Study Date: 05/12/2023 07:33 AMBP: 96/63 mmHg ? Patient Location: [place] CA06 A : 1955 ? Height: 154 cm ? Account: [id number] Age: 67 yrs ? Weight: 75 kg Gender: Female ?BSA: 1.7 m2 Ordering Physician: RADHA HOLLINS Referring Physician: RADHA HOLLINS Performed By: Dilma Bee RDCS Reason For Study: Guidance for TAVR procedure Exam Location: [facility]. Interpretation Summary PRE TAVR: There is [...] mL/m2. POST TAVR: Normal function of the xtuau-cs-skiwj prosthesis. See below for hemodynamic parameters. Slight improvement in left and right ventricular systolic function. LVEF now 20-25%. No pericardial effusion. See report for additional findings. Procedure Limited - 35660. Doppler - 10842. Color Doppler - 91337. Left Ventricle Left ventricle is of normal [...] Date: 307:33 AMBP: 96/63 mmHg Patient Location: [address] : 1955 Height: 154 cm Account: [id number] Age: 67 yrs Weight: 75 kg Gender: Female BSA: 1.7 m2 Ordering Physician: RADHA HOLLINS Referring Physician: RADHA HOLLINS Performed By: Dilma Bee RDCS Reason For Study: Guidance for TAVR procedure Exam Location: [facility]. Interpretation Summary PRE TAVR: There is [...] 28mL/m2. POST TAVR: Normal function of the emwbs-ku-dsqcq prosthesis. See belowfor hemodynamic parameters. Slight improvement in left and right ventricularsystolic function. LVEF now 20-25%. No pericardial effusion. See report for additional findings. Procedure Limited - 87137. Doppler - 03565. Color Doppler - 60502. Left Ventricle Left ventricle is of normal [...] Modality Other Narrative 05/12/2023 2:37 PM EDT ?[facility] ? Cardiac Catheterization/Intervention Report ? Patient Name: Purnima Thacker. ? Procedure Date: 05/12/2023 ? A #: [id number] ? Primary Physician: Antelmo Sharma ? Case #: [id number] ? File Name: [id number] ? Catheterization Order Number: [id number] ? [facility] ? Final Report [place], [place] ? Patient Name: ? Purnima M. Kirstie ? ID#: ?[id number] ? : ?1955 ? Procedure Date: ? May 12, 2023 ? Case #: ? [id number] ? Room: ? 6 ? Case Physicians: ?Antelmo Sharma M.D. ?Start: ?08:03 ?Alirio Hudson M.D. ?Admission: ??05/08/2023 ?Lynda Mcgowan M.D. ? Discharge: ??05/22/2023 ?Fellow: ? Emaluiz Tejeda M.D. ? Referring Physician: ??Mario Alberto Chin M.D. ? Procedures: ?* Coronary Angiography ?* Left Heart Catheterization ?* Coronary Stent Insertion ?* Transcatheter Aortic Valve Replacement ?* Vascular Closure Device Deployment ?* Temporary Pacemaker Insertion In Transaction Processor ?* Endotracheal Intubation By Non-Cath Physician ?* [...] area product was 63.60 Gy/cm2 and air ?praveen was 636 mGY. See the case log [...] guide. ??A premounted 4.00 x 30 mm [place] Hilliard (MINNA) was ? deployed with a maximum [...] calculated STS risk score was 30.1%. A bkkrd-un-uamia ?procedure was performed on the pre-existing bioprosthetic stented ?prosthesis. The priority of the syafy-sh-nbzoe procedure was Elective. ?The procedure was performed [...] Lai 3 Ultra RESILIA 23 mm THV ([id number]/j=[id number]) transcatheter ?valve was inserted using standard technique. [...] to nor was it given in the ?computer laboratory technician. ?Recommended anti-platelet/anti-thrombotic regimen: ?Continue aspirin 81 mg daily for indefinitely. ?These recommendations are made at the time of the intervention. Patient ?and provider preferences or a changing clinical situation may require ?modification of this regimen. Consult [facility] Inter[facility] for ?questions. ? Conclusions: ?* [...] regimen. ? Comments: ?Successful right transfemoral TAVR Bcwny-gp-Zuebr with a 23 mm Lai 3 ?THV. [...] insertion-coronary, access site angiography, ?temporary pacemaker in computer laboratory technician, intubation-non cath physician, vascular ?closure device, transthoracic echo ??and TAVR. Dr. Alirio Hudson M.D. ?performed the left heart catheterization, access site angiography, ?temporary pacemaker in computer laboratory technician, vascular closure device, transthoracic ?echo , TAVR and CPR during cath. Dr. Lynda Mcgowan M.D. performed the ABG, ?anesthesia and intubation-non cath physician. ? Antelmo Sharma M.D. ? Electronically Signed by: Antelmo Sharma M.D. ? Report Finalized: 05/12/2023 ??14:31 ? Report Last Ammended: 07/01/2023 ??11:30 ? Procedure Note Antelmo Sharma MD - 07/01/2023 [facility] Cardiac Catheterization/Intervention Report Patient Name: Purnima Thacker Procedure Date: 05/12/2023 A #: [id number] Primary Physician: Antelmo Sharma Case #: [id number] File Name: [id number] Catheterization Order Number: [id number] [facility] FinalReport [place], [place] Patient Name: Purnima Thacker ID#:[id number] :1955 Procedure Date: May 12, 2023 Case #: [id number] Room: 6 Case Physicians: Antelmo Sharma M.D. Start: 08:03 Alirio Hudson M.D. Admission:05/08/2023 Lynda Mcgowan M.D. Discharge:05/22/2023 Fellow: Rebekah Tejeda M.D. Referring Physician: Mario Alberto Chin M.D. Procedures: * Coronary Angiography * Left Heart Catheterization * Coronary Stent Insertion * Transcatheter Aortic Valve Replacement * Vascular Closure Device Deployment * Temporary Pacemaker Insertion In Transaction Processor * Endotracheal Intubation By Non-Cath Physician * [...] guide. A premounted 4.00 x 30 mm [place] Hilliard (MINNA) was deployed with a maximum inflation [...] calculated STS risk score was 30.1%. A ezyuv-gh-howla procedure was performed on the pre-existing bioprosthetic stented prosthesis. The priority of the gklvc-lr-bjdxu procedure wasElective. The procedure was performed under Moderate sedation performed byLynda Mcgowan M.D. (see anesthesia report for additional details). Alirio Hudson M.D. participated in the case (see Cardiac Surgery reportfor additional details). The TAVR sheath was a 14 Fr Corona eSheath Introducer and theaccess site was femoral. Rapid ventricular pacing was performed. An Corona Lai 3 Ultra RESILIA 23 mm THV ([id number]/y=[id number])transcatheter valve was inserted using standard technique. The [...] prior to nor was it given inthe computer laboratory technician. Recommended anti-platelet/anti-thrombotic regimen: Continue aspirin 81 mg daily for indefinitely. These recommendations are made at the time of the intervention.Patient and provider preferences or a changing clinical situation mayrequire modification of this regimen. Consult [facility] Interventional Cardiologyfor questions. Conclusions: * Nonobstructive disease [...] this regimen. Comments: Successful right transfemoral TAVR Imwzn-wl-Jzwiw with a 23 mmSapien 3 THV. We [...] insertion-coronary, access site angiography, temporary pacemaker in computer laboratory technician, intubation-non cath physician,vascular closure device, transthoracic echo and TAVR. Dr. Alirio Hudson M.D. performed the left heart catheterization, access site angiography, temporary pacemaker in computer laboratory technician, vascular closure device,transthoracic echo , [...] pH, POC 7.20(Crit ical) 7.35 - 7.45 [facility] Comment:Critical value OK, C C Lab. pCO2, POC 42 35 - [address] [facility] pO2, POC 260(H) 85 - 104 mmHg [facility] Base Excess, POC -11.0(L) -3.0 - 3.0 mmol/L [facility] Bicarbonate, POC 16.7(L) 20.0 - 26.0 mmol/L [facility] Sodium, POC 129(L) 135 - 145 mmol/L [facility] POC Potassium 3.8 3.5 - 5.0 mmol/L [facility] Ionized Calcium, POC 1.12(L) 1.15 - 1.33 mmol/L [facility] POC Hematocrit 23.0(L) 34.0 - 45.0 % [facility] POC Calc Hgb 7.8(L) 11.2 - 15.7 g/dL [facility] Comment:The calculation of h emoglobin from hematocrit assumes a normal MCHC. POC Bgas Loc CC Lab [facility] Blood 05/12/2023 8:50 AM EDT 05/13/2023 12:00 PM EDT Alirio Hudson MD CHEMISTRY ORDERABLE S [facility] [place] [address] * (ABNORMAL) Point of Care Blood Gas Historical (05/12/2023 8:10 AM EDT) pH, POC 7.27(Crit ical) 7.35 - 7.45 [facility] Comment:Critical value Yamel KRAUSE C Lab. pCO2, POC 37 35 - [address] [facility] pO2, POC 29(Critic al) 85 - [address] [facility] Comment:Critical value OK C C Lab. Base Excess, POC -10.0(L) -3.0 - 3.0 mmol/L [facility] Bicarbonate, POC 16.7(L) 20.0 - 26.0 mmol/L [facility] Sodium, POC 123(L) 135 - 145 mmol/L [facility] POC Potassium 4.0 3.5 - 5.0 mmol/L [facility] Ionized Calcium, POC 1.12(L) 1.15 - 1.33 mmol/L [facility] POC Hematocrit 27.0(L) 34.0 - 45.0 % [facility] POC Calc Hgb 9.2(L) 11.2 - 15.7 g/dL [facility] Comment:The calculation of h emoglobin from hematocrit assumes a normal MCHC. POC Bgas Loc CC Lab [facility] Blood 05/12/2023 8:10 AM EDT 05/13/2023 12:00 PM EDT Alirio Hudson MD CHEMISTRY ORDERABLE S Performing Organization Address City/[facility]/ZIP Co de Phone Number [facility] [place] [address] * (ABNORMAL) Lactate, whole blood, send to lab ([facility] (05/12/2023 7:00 AM EDT) Lactate WB 2.4(H) 0.5 - 2.2 mmol/L [facility] Blood 05/12/2023 7:00 AM EDT 05/12/2023 7:09 AM EDT Narrative Resulting Agency Comment Spec In Lab Radha Hollins MD CHEMISTRY ORDERABL ES Performing Organization Address [facility] Co de Phone Number [facility] [place] [address] * (ABNORMAL) Comprehensive metabolic panel (non-fasting) (05/12/2023 6:00 AM EDT) Glucose 167 65 - 199 mg/dL [facility] Comment:Diabetes: >=200 mg/d L plus symptoms Blood Urea Nitrogen 67(H) 8 - 18 mg/dL [facility] Creatinine 2.01(H) 0.70 - 1.20 mg/dL [facility] Sodium 131(L) 135 - 145 mmol/L [facility] Potassium 4.3 3.5 - 5.0 mmol/L [facility] Comment: Please note: ??Patients with WBC >100,000 may have falsely elevated Potassium levels. ??For accurate Potassium quantification in these patients send serum separator tube (gold top) for subsequent determinations. ??Contact the Clinical Chemistry Laboratory if there are any questions. Chloride 97(L) 98 - 107 mmol/L [facility] Carbon Dioxide 14(L) 22 - 31 mmol/L [facility] Anion Gap 20(H) 5 - 15 mmol/L [facility] Calcium 8.6 8.5 - 10.5 mg/dL [facility] Protein, Total 6.3 6.1 - 8.0 g/dL [facility] Albumin 3.5 3.2 - 5.2 g/dL [facility] Aspartate Aminotransferase 1,435(H) 0 - 30 unit/L [facility] Alanine Aminotransferase 1,174(H) 0 - 30 unit/L [facility] Alkaline Phosphatase 100 35 - 105 unit/L [facility] Bilirubin, Total 0.9 0.2 - 1.3 mg/dL [facility] Est Glomerular Filtration Rate 27(L) >=60 mL/min/1. 73 m?? [facility] Comment: This patient's estimated [...] Radha Hollins MD CHEMISTRY ORDERABL ES [facility] [place] [address] * (ABNORMAL) Coox2 (05/12/2023 5:08 AM EDT) pO2, Coox 24 mmHg [facility] Hgb Blood Gas 10.4(L) 11.7 - 15.5 g/dL [facility] Oxyhemoglobin, Coox 30.7 % [facility] Carboxyhemoglo bin, Coox 0.3 % [facility] Comment: Nonsmokers: 0.5-1.5% COHB Smokers: Variable, but usually less than 10% Toxic: 20-30% COHB Lethal: Greater than 60% COHB Methemoglobin, Coox 0.8 <=1.5 % [facility] Source Coox Mixed Venous [facility] Blood 05/12/2023 5:08 AM EDT 05/12/2023 5:08 AM EDT Radha Hollins MD POINT OF CARE TEST ORDERABLES Performing Organization Address City/[facility] Co de Phone Number [facility] [place] [address] * (ABNORMAL) Coox2 (05/12/2023 3:21 AM EDT) pO2, Coox 25 mmHg [facility] Hgb Blood Gas 10.8(L) 11.7 - 15.5 g/dL [facility] Oxyhemoglobin, Coox 32.7 % [facility] Carboxyhemoglo bin, Coox 0.3 % [facility] Comment: Nonsmokers: 0.5-1.5% COHB Smokers: Variable, but usually less than 10% Toxic: 20-30% COHB Lethal: Greater than 60% COHB Methemoglobin, Coox 0.7 <=1.5 % [facility] Source Coox Mixed Venous [facility] Blood 05/12/2023 3:21 AM EDT 05/12/2023 3:21 AM EDT Radha Hollins MD POINT OF CARE TEST ORDERABLES Performing Organization Address City/[facility] Co de Phone Number [facility] [place] [address] * (ABNORMAL) BLOOD GAS 2 ARTERIAL (05/12/2023 3:18 AM EDT) pH, Arterial 7.34(L) 7.35 - 7.45 [facility] PCO2, Arterial 30(L) 35 - [address] [facility] PO2, Arterial 72(L) 85 - [address] [facility] Bicarbonate, Arterial 16.0(L) 20.0 - 26.0 mmol/L [facility] Base Excess, Arterial -9.8(L) -3.0 - 3.0 mmol/L [facility] Hgb Blood Gas 11.0(L) 11.7 - 15.5 g/dL [facility] Oxyhemoglobin, Arterial 89.8(L) 94.0 - 97.0 % [facility] Carboxyhemoglob in, Arterial 0.3 % [facility] Comment: Nonsmokers: 0.5-1.5% COHB Smokers: Variable, but usually less than 10% Toxic: 20-30% COHB Lethal: Greater than 60% COHB Methemoglobin, Arterial 0.7 <=1.5 % [facility] Na Whole Blood 131(L) 135 - 145 mmol/L [facility] K Whole Blood 4.2 3.5 - 5.0 mmol/L [facility] Comment: Please note: Patients with WBC >100,000 may have falsely elevated Potassium levels. Contact the Clinical Chemistry Laboratory if there are any questions. ICa Whole Blood 1.12(L) 1.15 - 1.33 mmol/L [facility] Comment: Note: ??Total bilirubin higher than 20 mg/dL may lead to falsely low ionized calcium. CL Whole Blood 100 98 - 107 mmol/L [facility] Gluc Whole Bld 160 65 - 199 mg/dL [facility] Comment:Diabetes: >=200 mg/d L plus symptoms. Lactate WB 2.7(H) 0.5 - 2.2 mmol/L [facility] Flow Art 5.0 LPM [facility] Blood 05/12/2023 3:18 AM EDT 05/12/2023 3:18 AM EDT Radha Hollins MD POINT OF CARE TEST ORDERABLES [facility] [place] [address] * (ABNORMAL) Coox2 (05/12/2023 1:14 AM EDT) pO2, Coox 28 mmHg [facility] Hgb Blood Gas 10.9(L) 11.7 - 15.5 g/dL [facility] Oxyhemoglobin, Coox 37.3 % [facility] Carboxyhemoglo bin, Coox 0.3 % [facility] Comment: Nonsmokers: 0.5-1.5% COHB Smokers: Variable, but usually less than 10% Toxic: 20-30% COHB Lethal: Greater than 60% COHB Methemoglobin, Coox 0.5 <=1.5 % [facility] Source Coox Mixed Venous [facility] Blood 05/12/2023 1:14 AM EDT 05/12/2023 1:14 AM EDT Radha Hollins MD POINT OF CARE TEST ORDERABLES Performing Organization Address City/State/[facility] Co de Phone Number [facility] [place] [address] * (ABNORMAL) BLOOD GAS 2 ARTERIAL (05/12/2023 1:06 AM EDT) pH, Arterial 7.34(L) 7.35 - 7.45 [facility] PCO2, Arterial 30(L) 35 - [address] [facility] PO2, Arterial 81(L) 85 - [address] [facility] Bicarbonate, Arterial 15.7(L) 20.0 - 26.0 mmol/L [facility] Base Excess, Arterial -10.1(L) -3.0 - 3.0 mmol/L [facility] Hgb Blood Gas 11.0(L) 11.7 - 15.5 g/dL [facility] Oxyhemoglobin, Arterial 92.3(L) 94.0 - 97.0 % [facility] Carboxyhemoglob in, Arterial 0.2 % [facility] Comment: Nonsmokers: 0.5-1.5% COHB Smokers: Variable, but usually less than 10% Toxic: 20-30% COHB Lethal: Greater than 60% COHB Methemoglobin, Arterial 0.6 <=1.5 % [facility] Na Whole Blood 131(L) 135 - 145 mmol/L [facility] K Whole Blood 4.2 3.5 - 5.0 mmol/L [facility] Comment: Please note: Patients with WBC >100,000 may have falsely elevated Potassium levels. Contact the Clinical Chemistry Laboratory if there are any questions. ICa Whole Blood 1.13(L) 1.15 - 1.33 mmol/L [facility] Comment: Note: ??Total bilirubin higher than 20 mg/dL may lead to falsely low ionized calcium. CL Whole Blood 99 98 - 107 mmol/L [facility] Gluc Whole Bld 132 65 - 199 mg/dL [facility] Comment:Diabetes: >=200 mg/d L plus symptoms. Lactate WB 2.7(H) 0.5 - 2.2 mmol/L [facility] Flow Art 5.0 LPM [facility] Blood 05/12/2023 1:06 AM EDT 05/12/2023 1:06 AM EDT Radha Hollins MD POINT OF CARE TEST ORDERABLES Performing Organization Address City/State/[facility] Co de Phone Number [facility] [place] [address] * (ABNORMAL) Differential, Automated (05/12/2023 1:05 AM EDT) Neutrophil % 83.3 % [facility] Neutrophil Absolute 7.49(H) 1.70 - 6.10 x10(3)/mc L [facility] Lymph % 7.1 % [facility] Lymphocytes Abs 0.6(L) 0.9 - 3.2 x10(3)/mc L [facility] Monocyte % 8.9 % [facility] Monocyte Abs 0.8 0.3 - 0.9 x10(3)/mc L [facility] Eos % 0.0 % [facility] Eosinophils Abs 0.0 0.0 - 0.4 x10(3)/mc L [facility] Basophil % 0.1 % [facility] Baso Absolute 0.0 0.0 - 0.1 x10(3)/mc L [facility] Immature Gran % 0.60 % [facility] Comment: Immature granulocytes(IG's)percentage and absolute count will include metamyelocytes, myelocytes, and promyelocytes. Blood smears from CBCs yielding IG's will be scanned manually for concordance. If this scan disagrees with the automated IG or if promyelocytes are noted, a manual differential will be performed. Immature Gran Absolute 0.05(H) 0.00 - 0.04 x10(3)/mc L [facility] Blood 05/12/2023 1:05 AM EDT 05/12/2023 1:15 AM EDT Narrative Resulting Agency Comment Spec In Lab Gianni Fletcher MD HEMATOLOGY ORDERABLE S Performing Organization Address City/State/[facility] Co de Phone Number [facility] [place] [address] * (ABNORMAL) Hemogram (05/12/2023 1:05 AM EDT) White Blood Cell 9.0 4.0 - 9.5 x10(3)/mc L [facility] Red Blood Cell 3.01(L) 4.00 - 5.21 x10(6)/mc L [facility] Hemoglobin 9.8(L) 11.7 - 15.5 g/dL [facility] Hematocrit 28.7(L) 35.7 - 45.8 % [facility] Mean Cell Volume 95.3(H) 82.6 - 94.[address] [facility] Mean Cell Hemoglobin 32.6(H) 27.1 - 32.[address] [facility] Mean Cell Hemoglobin Concentration 34.1 31.7 - 35.0 g/dL [facility] Platelet 186 145 - 357 x10(3)/mc L [facility] RDW Standard Deviation 43.7 37.0 - 46.[address] [facility] RDW coefficient of variation 12.7 11.5 - 14.1 % [facility] Mean Platelet Volume 10.3 7.6 - 12.9 fL [facility] NRBC% auto 0.0 % [facility] NRBC Absolute 0.000 0.000 - 0.000 x10(3)/mc L [facility] Blood 05/12/2023 1:05 AM EDT 05/12/2023 1:15 AM EDT Narrative Resulting Agency Comment Spec In Lab Gianni Fletcher MD HEMATOLOGY ORDERABLE S [facility] [place] [address] * (ABNORMAL) Comprehensive metabolic panel (non-fasting) (05/12/2023 1:05 AM EDT) Glucose 141 65 - 199 mg/dL [facility] Comment:Diabetes: >=200 mg/d L plus symptoms Blood Urea Nitrogen 63(H) 8 - 18 mg/dL [facility] Creatinine 1.86(H) 0.70 - 1.20 mg/dL [facility] Sodium 131(L) 135 - 145 mmol/L [facility] Potassium 4.4 3.5 - 5.0 mmol/L [facility] Comment: Please note: ??Patients with WBC >100,000 may have falsely elevated Potassium levels. ??For accurate Potassium quantification in these patients send serum separator tube (gold top) for subsequent determinations. ??Contact the Clinical Chemistry Laboratory if there are any questions. Chloride 96(L) 98 - 107 mmol/L [facility] Carbon Dioxide 14(L) 22 - 31 mmol/L [facility] Anion Gap 21(H) 5 - 15 mmol/L [facility] Calcium 9.0 8.5 - 10.5 mg/dL [facility] Protein, Total 6.6 6.1 - 8.0 g/dL [facility] Albumin 3.9 3.2 - 5.2 g/dL [facility] Aspartate Aminotransferase 1,227(H) 0 - 30 unit/L [facility] Alanine Aminotransferase 1,097(H) 0 - 30 unit/L [facility] Alkaline Phosphatase 108(H) 35 - 105 unit/L [facility] Bilirubin, Total 1.0 0.2 - 1.3 mg/dL [facility] Est Glomerular Filtration Rate 29(L) >=60 mL/min/1. 73 m?? [facility] Comment: This patient's estimated [...] Radha Hollins MD CHEMISTRY ORDERABL ES [facility] [place] [address] * XR Chest One View (05/12/2023 1:00 [...] questions please contact the health health care recruiter that requested your imaging first. ? Narrative [...] have questions please contactthe health health care recruiter that requested your imaging first. Radha Hollins MD IMG DX ORDERABLES * (ABNORMAL) Coox2 (05/12/2023 12:30 AM EDT) pO2, Coox 22 mmHg [facility] Hgb Blood Gas 10.9(L) 11.7 - 15.5 g/dL [facility] Oxyhemoglobin, Coox 25.1 % [facility] Carboxyhemoglo bin, Coox 0.3 % [facility] Comment: Nonsmokers: 0.5-1.5% COHB Smokers: Variable, but usually less than 10% Toxic: 20-30% COHB Lethal: Greater than 60% COHB Methemoglobin, Coox 1.4 <=1.5 % [facility] Source Coox Mixed Venous [facility] Blood 05/12/2023 12:3 0 AM EDT 05/12/2023 12:30 AM EDT Radha Hollins MD POINT OF CARE TEST ORDERABLES [facility] [place] [address] * XR Chest One View (05/11/2023 11:45 [...] questions please contact the health health care recruiter that requested your imaging first. ? Narrative [...] have questions please contactthe health health care recruiter that requested your imaging first. Radha Hollins MD IMG DX ORDERABLES * (ABNORMAL) Lactate, whole blood, [place] lab [place] [place] (05/11/2023 7:40 PM EDT) Lactate WB 4.8(Critic al) 0.5 - 2.2 mmol/L [facility] Comment:Called by: IMM, Read back by: Magdalena Baires, Date/Time:05/11/23 19:54. Blood 05/11/2023 7:40 PM EDT 05/11/2023 7:49 PM EDT Narrative Resulting Agency Comment Spec In Lab Radha Hollins MD CHEMISTRY ORDERABL ES Performing Organization Address [facility]/ZIP Co de Phone Number [facility] [place] [address] * Urine culture (05/11/2023 7:22 PM EDT) Urine Culture 50,000-99,000 cfu/ml Normal mucosal herman Susceptibilit y testing not routinely performed for Coagulase Negative Staphylococcu s species and other Gram Positive organisms from urine. [facility] Clean Catch Urine 05/11/2023 7:22 PM EDT 05/11/2023 8:50 PM EDT Narrative Resulting Agency Comment Spec In Lab Brody Enriquezwilder CHIEF PSYCHOLOGY MICROBIOLOGY - GENE RAL ORDERABLES Performing Organization Address [facility] Co de Phone Number [facility] [place] [address] * (ABNORMAL) Urinalysis Microscopic Exam (05/11/2023 7:22 PM EDT) RBC, Urine 2 0 - 4 /HPF [facility] WBC, Urine >100(H) 0 - 5 /HPF [facility] Bacteria, Urine Occasional (A) None /HPF [facility] Squamous Epithelial Cells Raw Data, Urine 5(H) <=4 /HPF [facility] Hyaline Casts, Urine 3(H) 0 - 2 /LPF [facility] Clean Catch Urine 05/11/2023 7:22 PM EDT 05/11/2023 7:31 PM EDT Narrative Resulting Agency Comment Spec In Lab Brody Dale Eusebio CHIEF PSYCHOLOGY URINE ORDERABLES Performing Organization Address [facility]/ZIP Co de Phone Number [facility] [place] [address] * (ABNORMAL) Urinalysis with reflex Culture (05/11/2023 7:22 PM EDT) Glucose, Urine Dipstick Negative Negative mg/dL [facility] Protein, Urine Dipstick Trace(A) Negative mg/dL [facility] Bilirubin, Urine Dipstick Negative Negative mg/dL [facility] Comment: Clinical correlation required for positive Urine Bilirubin results as false positive may occur with some drugs and drug related products. If a false positive is suspected a serum total bilirubin should be considered if clinically indicated. Urobilinogen, Urine Dipstick Normal Normal mg/dL [facility] pH, Urn (dipstick) 5.0 5.0 - 8.0 [facility] Blood, Urine Dipstick Trace(A) Negative mg/dL [facility] Ketone, Urine Dipstick Negative Negative mg/dL [facility] Nitrite, Urine Dipstick Negative Negative [facility] Leukocytes, Urine Dipstick Moderate(A) Negative mcL [facility] Appearance, Urine Dipstick Cloudy(A) Clear [facility] Specific [place] Urine Automated >=1.030(A) 1.005 - 1.030 [facility] Color, Urine Dipstick Yellow Yellow [facility] Reflex to Culture Yes [facility] Clean Catch Urine 05/11/2023 7:22 PM EDT 05/11/2023 7:31 PM EDT Narrative Resulting Agency Comment Spec In Lab Brody Kaplan APRN URINE ORDERABLES Performing Organization Address [facility] Co de Phone Number [facility] [place] [address] * (ABNORMAL) pro-Brain Natriuretic Peptide (05/11/2023 7:11 PM EDT) NT-proBNP >35,000(H) <=124 pg/mL [facility] Blood 05/11/2023 7:11 PM EDT 05/11/2023 7:26 PM EDT Narrative Resulting Agency Comment Spec In Lab Radha Hollins MD CHEMISTRY ORDERABL ES [facility] [place] [address] * (ABNORMAL) Lactate, whole blood, [place] lab [place] [place] (05/11/2023 2:47 PM EDT) Lactate WB 2.9(H) 0.5 - 2.2 mmol/L [facility] Blood 05/11/2023 2:47 PM EDT 05/11/2023 2:53 PM EDT Narrative Resulting Agency Comment Spec In Lab Juan Luis Gonzalez MD CHEMISTRY ORDERABLES [facility] [place] [address] * (ABNORMAL) CT Angiogram Abdomen & Pelvis [...] questions please contact the health health care recruiter that requested your imaging first. ? Narrative [...] questions please contact the health health care recruiter that requested your imaging first. ? Electronically signed by: Cullen Narayanan MD, [facility] ([phone]), at 05/11/2023 4:37 PM Narrative 05/11/2023 4:37 [...] 610 mm2 Circumference: 88 mm Calcification: Mild Afoyuuv-ee-cixkhyxy height: Left: 6.2 mm Right: 5.8 mm THORACIC AORTA Description: Normal course and caliber. ??Mild diffuse atherosclerotic changes. No acute aortopathy noted. Clothing Examiner dimensions: Aortic root: 27.6 mm Max ascending aorta: 30.5 mm x 27.7 mm Suggested fluoroscopic angulation based on line extending through the nadirs of the three sinuses of Valsalva, set equidistant: ?? ST LUCIAN ??9 degrees; cranial 7 degrees MITRAL: Mitral [...] 610 mm2 Circumference: 88 mm Calcification: Mild Ucawkcz-al-pofgbuhl height: Left: 6.2 mm Right: 5.8 mm THORACIC AORTA Description: Normal course and caliber. Mild diffuse atheroscleroticchanges. No acute aortopathy noted. Clothing Examiner dimensions: Aortic root: 27.6 mm Max ascending aorta: 30.5 mm x 27.7 mm Suggested fluoroscopic angulation based on line extending through thenadirs of the three sinuses of Valsalva, set equidistant: ST LUCIAN 9 degrees; cranial 7 degrees MITRAL: Mitral [...] have questions please contactthe health health care recruiter that requested your imaging first. Electronically signed by: Cullen Narayanan MD, [facility]([phone]), at 05/11/2023 4:37 PM Antelmo Sharma MD IMG CT ORDERABLES * (ABNORMAL) Lactate, whole blood, send to lab [place] [place] (05/11/2023 9:29 AM EDT) [facility] Lactate WB 3.1(H) 0.5 - 2.2 mmol/L [facility] Blood 05/11/2023 9:29 AM EDT 05/11/2023 9:38 AM EDT Narrative Resulting Agency Comment Spec In Lab Juan Luis Gonzalez MD CHEMISTRY ORDERABLES [facility] [place] [address] * (ABNORMAL) Differential, Automated (05/11/2023 4:42 AM EDT) Pathologist [facility] Neutrophil % 78.1 % [facility] Neutrophil Absolute 5.46 1.70 - 6.10 x10(3)/mc L [facility] Lymph % 10.6 % [facility] Lymphocytes Abs 0.7(L) 0.9 - 3.2 x10(3)/mc L [facility] Monocyte % 9.6 % [facility] Monocyte Abs 0.7 0.3 - 0.9 x10(3)/mc L [facility] Eos % 0.0 % [facility] Eosinophils Abs 0.0 0.0 - 0.4 x10(3)/mc L [facility] Basophil % 0.4 % [facility] Baso Absolute 0.0 0.0 - 0.1 x10(3)/mc L [facility] Immature Gran % 1.30 % [facility] Comment: Immature granulocytes(IG's)percentage and absolute count will include metamyelocytes, myelocytes, and promyelocytes. Blood smears from CBCs yielding IG's will be scanned manually for concordance. If this scan disagrees with the automated IG or if promyelocytes are noted, a manual differential will be performed. Immature Gran Absolute 0.09(H) 0.00 - 0.04 x10(3)/ L [facility] Blood 05/11/2023 4:42 AM EDT 05/11/2023 4:49 AM EDT Narrative Resulting Agency Comment Spec In Lab Klaudia Reid MD HEMATOLOGY OR DERABLES Performing Organization Address City/State/[facility] Co de Phone Number [facility] [place] [address] * (ABNORMAL) Hemogram (05/11/2023 4:42 AM EDT) White Blood Cell 7.0 4.0 - 9.5 x10(3)/mc L [facility] Red Blood Cell 3.44(L) 4.00 - 5.21 x10(6)/ L [facility] Hemoglobin 11.1(L) 11.7 - 15.5 g/dL [facility] Hematocrit 32.7(L) 35.7 - 45.8 % [facility] Mean Cell Volume 95.1(H) 82.6 - 94.[address] [facility] Mean Cell Hemoglobin 32.3(H) 27.1 - 32.[address] [facility] Mean Cell Hemoglobin Concentration 33.9 31.7 - 35.0 g/dL [facility] Platelet 165 145 - 357 x10(3)/mc L [facility] RDW Standard Deviation 43.1 37.0 - 46.[address] [facility] RDW coefficient of variation 12.7 11.5 - 14.1 % [facility] Mean Platelet Volume 10.1 7.6 - 12.9 fL [facility] NRBC% auto 0.0 % [facility] NRBC Absolute 0.000 0.000 - 0.000 x10(3)/mc L [facility] Blood 05/11/2023 4:42 AM EDT 05/11/2023 4:49 AM EDT Narrative Resulting Agency Comment Spec In Lab Klaudia Reid MD HEMATOLOGY OR DERABLES Performing Organization Address [facility] de Phone Number [facility] [place] [address] * Heparin (unfractionated) Level (05/11/2023 4:42 AM EDT) UF Heparin 0.46 IU/mL [facility] Comment: Heparin (anti-Xa) levels [...] MD HEMATOLOGY ORDERAB LES Performing Organization Address [facility] Co de Phone Number [facility] [place] [address] * (ABNORMAL) Comprehensive metabolic panel (non-fasting) (05/11/2023 4:42 AM EDT) Glucose 143 65 - 199 mg/dL [facility] Comment:Diabetes: >=200 mg/d L plus symptoms Blood Urea Nitrogen 42(H) 8 - 18 mg/dL [facility] Creatinine 1.24(H) 0.70 - 1.20 mg/dL [facility] Sodium 134(L) 135 - 145 mmol/L [facility] Potassium 4.6 3.5 - 5.0 mmol/L [facility] Comment: Please note: ??Patients with WBC >100,000 may have falsely elevated Potassium levels. ??For accurate Potassium quantification in these patients send serum separator tube (gold top) for subsequent determinations. ??Contact the Clinical Chemistry Laboratory if there are any questions. Chloride 99 98 - 107 mmol/L [facility] Carbon Dioxide 14(L) 22 - 31 mmol/L [facility] Anion Gap 21(H) 5 - 15 mmol/L [facility] Calcium 9.6 8.5 - 10.5 mg/dL [facility] Protein, Total 7.2 6.1 - 8.0 g/dL [facility] Albumin 3.7 3.2 - 5.2 g/dL [facility] Aspartate Aminotransferase 144(H) 0 - 30 unit/L [facility] Comment:result rechecked-ssc Alanine Aminotransferase 130(H) 0 - 30 unit/L [facility] Comment:result rechecked-ssc Alkaline Phosphatase 72 35 - 105 unit/L [facility] Bilirubin, Total 0.8 0.2 - 1.3 mg/dL [facility] Est Glomerular Filtration Rate 48(L) >=60 mL/min/1. 73 m?? [facility] Comment: This patient's estimated [...] Radha Hollins MD CHEMISTRY ORDERABL ES [facility] [place] [address] * EKG 12 Lead (05/10/2023 1:16 PM EDT) Ventricular rate 118 BPM MUSE SYSTEM Atrial Rate 118 BPM MUSE SYSTEM P-R Interval 152 ms MUSE SYSTEM QRS Duration 104 ms MUSE SYSTEM Q-T Interval 316 ms MUSE SYSTEM QTC Calculated (Bezet) 442 ms MUSE SYSTEM Calculated P Eccles 29 degrees MUSE SYSTEM Calculated R Eccles 18 degrees MUSE SYSTEM Calculated T Eccles -173 degrees MUSE SYSTEM INTERPRETATION Sinus tachycardia Minimal voltage criteria for LVH, may be normal variant ( [place] product ) Septal infarct , age undetermined ST & T wave abnormality, consider lateral ischemia Abnormal ECG When compared with ECG of 10-MAY-2023 07:59, Fusion complexes are no longer Present Premature ventricular complexes are no longer Present ST no longer depressed in Anterior leads Confirmed by MD Mono, Eleni ([id number]) on 05/10/2023 8:47:46 PM MUSE SYSTEM 05/10/2023 1:16 PM EDT 05/10/2023 8:47 PM EDT Juan Luis Gonzalez MD ECG ORDERABLES MUSE SYSTEM * Lactate, whole blood, [place] lab [place] [place] (05/10/2023 11:52 AM EDT) Lactate WB 1.8 0.5 - 2.2 mmol/L [facility] Blood 05/10/2023 11:5 2 AM EDT 05/10/2023 12:13 PM EDT Narrative Resulting Agency Comment Spec In Lab Juan Luis Gonzalez MD CHEMISTRY ORDERABLES [facility] [place] [address] * XR Chest One View (05/10/2023 11:16 [...] questions please contact the health health care recruiter that requested your imaging first. ? Narrative [...] have questions please contactthe health health care recruiter that requested your imaging first. Juan Luis Gonzalez MD IMG DX ORDERABLES * EKG 12 Lead (05/10/2023 7:59 AM EDT) Ventricular rate 115 BPM MUSE SYSTEM Atrial Rate 115 BPM MUSE SYSTEM P-R Interval 142 ms MUSE SYSTEM QRS Duration 102 ms MUSE SYSTEM Q-T Interval 322 ms MUSE SYSTEM QTC Calculated (Bezet) 445 ms MUSE SYSTEM Calculated P Eccles 36 degrees MUSE SYSTEM Calculated R Eccles 28 degrees MUSE SYSTEM Calculated T Eccles -119 degrees MUSE SYSTEM INTERPRETATION Sinus tachycardia with frequent Premature ventricular complexes and Fusion complexes ST & T wave abnormality, consider lateral ischemia Abnormal ECG When compared with ECG of 08-MAY-2023 15:51, No significant change was found I personally reviewed the tracing and edited the fellows interpretation Confirmed by fellow MD Anitha, [facility] ([id number]) on 05/11/2023 6:19:54 AM Confirmed by MD Tram, Clinton ([id number]) on 05/11/2023 3:18:56 PM MUSE SYSTEM 05/10/2023 7:59 AM EDT 05/11/2023 3:18 PM EDT Radha Hollins MD ECG ORDERABLES MUSE SYSTEM * (ABNORMAL) Differential, Automated (05/10/2023 2:28 AM EDT) Neutrophil % 77.1 % [facility] Neutrophil Absolute 4.01 1.70 - 6.10 x10(3)/mc L [facility] Lymph % 14.0 % [facility] Lymphocytes Abs 0.7(L) 0.9 - 3.2 x10(3)/mc L [facility] Monocyte % 7.7 % [facility] Monocyte Abs 0.4 0.3 - 0.9 x10(3)/mc L [facility] Eos % 0.4 % [facility] Eosinophils Abs 0.0 0.0 - 0.4 x10(3)/mc L [facility] Basophil % 0.4 % [facility] Baso Absolute 0.0 0.0 - 0.1 x10(3)/mc L [facility] Immature Gran % 0.40 % [facility] Comment: Immature granulocytes(IG's)percentage and absolute count will include metamyelocytes, myelocytes, and promyelocytes. Blood smears from CBCs yielding IG's will be scanned manually for concordance. If this scan disagrees with the automated IG or if promyelocytes are noted, a manual differential will be performed. Immature Gran Absolute 0.02 0.00 - 0.04 x10(3)/ L [facility] Blood 05/10/2023 2:28 AM EDT 05/10/2023 2:57 AM EDT Narrative Resulting Agency Comment Spec In Lab Klaudia Reid MD HEMATOLOGY OR DERABLES [facility] [place] [address] * (ABNORMAL) Hemogram (05/10/2023 2:28 AM EDT) White Blood Cell 5.2 4.0 - 9.5 x10(3)/mc L [facility] Red Blood Cell 3.11(L) 4.00 - 5.21 x10(6)/ L [facility] Hemoglobin 10.2(L) 11.7 - 15.5 g/dL [facility] Hematocrit 30.2(L) 35.7 - 45.8 % [facility] Mean Cell Volume 97.1(H) 82.6 - 94.[address] [facility] Mean Cell Hemoglobin 32.8(H) 27.1 - 32.[address] [facility] Mean Cell Hemoglobin Concentration 33.8 31.7 - 35.0 g/dL [facility] Platelet 151 145 - 357 x10(3)/mc L [facility] RDW Standard Deviation 44.9 37.0 - 46.0 fL [facility] RDW coefficient of variation 12.8 11.5 - 14.1 % [facility] Mean Platelet Volume 9.8 7.6 - 12.9 fL [facility] NRBC% auto 0.0 % [facility] NRBC Absolute 0.000 0.000 - 0.000 x10(3)/mc L [facility] Blood 05/10/2023 2:28 AM EDT 05/10/2023 2:57 AM EDT Narrative Resulting Agency Comment Spec In Lab Klaudia Reid MD HEMATOLOGY OR DERABLES [facility] [address] [place] [address] * (ABNORMAL) Comprehensive metabolic panel (non-fasting) (05/10/2023 2:28 AM EDT) Glucose 100 65 - 199 mg/dL [facility] Comment:Diabetes: >=200 mg/d L plus symptoms Blood Urea Nitrogen 30(H) 8 - 18 mg/dL [facility] Creatinine 0.90 0.70 - 1.20 mg/dL [facility] Sodium 134(L) 135 - 145 mmol/L [facility] Potassium 4.1 3.5 - 5.0 mmol/L [facility] Comment: Please note: ??Patients with WBC >100,000 may have falsely elevated Potassium levels. ??For accurate Potassium quantification in these patients send serum separator tube (gold top) for subsequent determinations. ??Contact the Clinical Chemistry Laboratory if there are any questions. Chloride 102 98 - 107 mmol/L [facility] Carbon Dioxide 20(L) 22 - 31 mmol/L [facility] Anion Gap 12 5 - 15 mmol/L [facility] Calcium 9.3 8.5 - 10.5 mg/dL [facility] Protein, Total 6.4 6.1 - 8.0 g/dL [facility] Albumin 3.7 3.2 - 5.2 g/dL [facility] Aspartate Aminotransferase 24 0 - 30 unit/L [facility] Alanine Aminotransferase 14 0 - 30 unit/L [facility] Alkaline Phosphatase 70 35 - 105 unit/L [facility] Bilirubin, Total 0.5 0.2 - 1.3 mg/dL [facility] Est Glomerular Filtration Rate 70 >=60 mL/min/1. 73 m?? [facility] Comment: This patient's estimated GFR [...] MD CHEMISTRY ORDERABL ES Performing Organization Address City/State/[facility] Co de Phone Number [facility] [place] [address] * Heparin (unfractionated) Level (05/10/2023 2:28 AM EDT) UF Heparin 0.37 IU/mL [facility] Comment: Heparin (anti-Xa) levels [...] Lab Radha Hollins MD [place] [address] * (ABNORMAL) Differential, Automated (05/09/2023 4:00 AM EDT) Neutrophil % 81.7 % [facility] Neutrophil Absolute 5.26 1.70 - 6.10 x10(3)/mc L [facility] Lymph % 10.7 % [facility] Lymphocytes Abs 0.7(L) 0.9 - 3.2 x10(3)/mc L [facility] Monocyte % 6.5 % [facility] Monocyte Abs 0.4 0.3 - 0.9 x10(3)/mc L [facility] Eos % 0.5 % [facility] Eosinophils Abs 0.0 0.0 - 0.4 x10(3)/ L [facility] Basophil % 0.3 % [facility] Baso Absolute 0.0 0.0 - 0.1 x10(3)/mc L [facility] Immature Gran % 0.30 % [facility] Comment: Immature granulocytes(IG's)percentage and absolute count will include metamyelocytes, myelocytes, and promyelocytes. Blood smears from CBCs yielding IG's will be scanned manually for concordance. If this scan disagrees with the automated IG or if promyelocytes are noted, a manual differential will be performed. Immature Gran Absolute 0.02 0.00 - 0.04 x10(3)/mc L [facility] Blood 05/09/2023 4:00 AM EDT 05/09/2023 4:19 AM EDT Narrative Resulting Agency Comment Spec In Lab Klaudia Reid MD [place] [address] * (ABNORMAL) Hemogram (05/09/2023 4:00 AM EDT) White Blood Cell 6.4 4.0 - 9.5 x10(3)/mc L [facility] Red Blood Cell 3.15(L) 4.00 - 5.21 x10(6)/mc L [facility] Hemoglobin 10.2(L) 11.7 - 15.5 g/dL [facility] Hematocrit 30.3(L) 35.7 - 45.8 % [facility] Mean Cell Volume 96.2(H) 82.6 - 94.4 fL [facility] Mean Cell Hemoglobin 32.4(H) 27.1 - 32.[address] [facility] Mean Cell Hemoglobin Concentration 33.7 31.7 - 35.0 g/dL [facility] Platelet 151 145 - 357 x10(3)/mc L [facility] RDW Standard Deviation 44.7 37.0 - 46.[address] [facility] RDW coefficient of variation 12.8 11.5 - 14.1 % [facility] Mean Platelet Volume 9.4 7.6 - 12.[address] [facility] NRBC% auto 0.0 % [facility] NRBC Absolute 0.000 0.000 - 0.000 x10(3)/ L [facility] Blood 05/09/2023 4:00 AM EDT 05/09/2023 4:19 AM EDT Narrative Resulting Agency Comment Spec In Lab Klaudia Reid MD HEMATOLOGY OR DERABLES Performing Organization Address City/State/[facility] Co de Phone Number [facility] [place] [address] * Heparin (unfractionated) Level (05/09/2023 4:00 AM EDT) UF Heparin 0.47 IU/mL [facility] Comment: Heparin (anti-Xa) levels [...] Lab Radha Hollins MD HEMATOLOGY ORDERAB LES [facility] [place] [address] * (ABNORMAL) Comprehensive metabolic panel (non-fasting) (05/09/2023 4:00 AM EDT) Glucose 108 65 - 199 mg/dL [facility] Comment:Diabetes: >=200 mg/d L plus symptoms Blood Urea Nitrogen 31(H) 8 - 18 mg/dL [facility] Creatinine 1.03 0.70 - 1.20 mg/dL [facility] Sodium 137 135 - 145 mmol/L [facility] Potassium 4.4 3.5 - 5.0 mmol/L [facility] Comment: Please note: ??Patients with WBC >100,000 may have falsely elevated Potassium levels. ??For accurate Potassium quantification in these patients send serum separator tube (gold top) for subsequent determinations. ??Contact the Clinical Chemistry Laboratory if there are any questions. Chloride 102 98 - 107 mmol/L [facility] Carbon Dioxide 20(L) 22 - 31 mmol/L [facility] Anion Gap 15 5 - 15 mmol/L [facility] Calcium 9.3 8.5 - 10.5 mg/dL [facility] Protein, Total 6.6 6.1 - 8.0 g/dL [facility] Albumin 3.8 3.2 - 5.2 g/dL [facility] Aspartate Aminotransferase 32(H) 0 - 30 unit/L [facility] Alanine Aminotransferase 18 0 - 30 unit/L [facility] Alkaline Phosphatase 78 35 - 105 unit/L [facility] Bilirubin, Total 0.5 0.2 - 1.3 mg/dL [facility] Est Glomerular Filtration Rate 60 >=60 mL/min/1. 73 m?? [facility] Comment: This patient's estimated GFR [...] MD CHEMISTRY ORDERABL ES Performing Organization Address City/[facility]/ZIP Co de Phone Number [facility] [place] [address] * (ABNORMAL) pro-Brain Natriuretic Peptide (05/08/2023 4:00 PM EDT) NT-proBNP 25,503(H) <=124 pg/mL [facility] Blood Venous Draw / Unknown 05/08/2023 4:00 PM EDT 05/08/2023 4:25 PM EDT Narrative Resulting Agency Comment Spec In Lab Juan Luis Gonzalez MD CHEMISTRY ORDERABLES Performing Organization Address City/[facility]/ZIP Co de Phone Number [facility] [place] [address] * Magnesium (05/08/2023 4:00 PM EDT) Magnesium 0.82 0.69 - 1.07 mmol/L [facility] Blood 05/08/2023 4:00 PM EDT 05/08/2023 4:06 PM EDT Narrative Resulting Agency Comment Spec In Lab Enrique Chua MD CHEMISTRY ORDERABLES Performing Organization Address City/[facility]/ZIP Co de Phone Number [facility] [place] [address] * Potassium (05/08/2023 4:00 PM EDT) Potassium 3.9 3.5 - 5.0 mmol/L [facility] Comment: Please note: ??Patients with [...] MD CHEMISTRY ORDERABL ES Performing Organization Address [facility] [place] [address] * Heparin (unfractionated) Level (05/08/2023 4:00 PM EDT) [facility] UF Heparin 0.43 IU/mL [facility] Comment: Heparin (anti-Xa) levels [...] MD HEMATOLOGY ORDERAB LES Performing Organization Address [facility] Co de Phone Number [facility] [place] [address] * EKG 12 Lead (05/08/2023 3:51 PM EDT) [facility] Ventricular rate 98 BPM MUSE SYSTEM Atrial Rate 98 BPM MUSE SYSTEM P-R Interval 150 ms MUSE SYSTEM QRS Duration 102 ms MUSE SYSTEM Q-T Interval 358 ms MUSE SYSTEM QTC Calculated (Bezet) 457 ms MUSE SYSTEM Calculated P Eccles 38 degrees MUSE SYSTEM Calculated R Eccles 48 degrees MUSE SYSTEM Calculated T Eccles -112 degrees MUSE SYSTEM INTERPRETATION Sinus rhythm with frequent and consecutive Premature ventricular and fusion complexes Septal infarct , age undetermined ST & T wave abnormality, consider anterolateral ischemia Abnormal ECG When compared with ECG of 09-NOV-2022 11:17, T wave inversion now evident in Anterolateral leads Confirmed by MD Harshil, Enrique Bell ([id number]) on 05/10/2023 8:11:46 AM MUSE SYSTEM 05/08/2023 3:51 PM EDT 05/10/2023 8:11 AM EDT Radha Hollins MD ECG ORDERABLES MUSE SYSTEM * (ABNORMAL) Differential, Automated (05/08/2023 11:38 AM EDT) Neutrophil % 71.3 % [facility] Neutrophil Absolute 2.91 1.70 - 6.10 x10(3)/mc L [facility] Lymph % 19.1 % [facility] Lymphocytes Abs 0.8(L) 0.9 - 3.2 x10(3)/mc L [facility] Monocyte % 9.0 % [facility] Monocyte Abs 0.4 0.3 - 0.9 x10(3)/mc L [facility] Eos % 0.2 % [facility] Eosinophils Abs 0.0 0.0 - 0.4 x10(3)/mc L [facility] Basophil % 0.2 % [facility] Baso Absolute 0.0 0.0 - 0.1 x10(3)/mc L [facility] Immature Gran % 0.20 % [facility] Comment: Immature granulocytes(IG's)percentage and absolute count will include metamyelocytes, myelocytes, and promyelocytes. Blood smears from CBCs yielding IG's will be scanned manually for concordance. If this scan disagrees with the automated IG or if promyelocytes are noted, a manual differential will be performed. Immature Gran Absolute 0.01 0.00 - 0.04 x10(3)/mc L [facility] Blood 05/08/2023 11:3 8 AM EDT 05/08/2023 11:44 AM EDT Narrative Resulting Agency Comment Spec In Lab Lincoln Sal MD HEMATOLOGY ORDERA BLES Performing Organization Address City/[facility]/ZIP Co de Phone Number [facility] [place] [address] * (ABNORMAL) Hemogram (05/08/2023 11:38 AM EDT) White Blood Cell 4.1 4.0 - 9.5 x10(3)/mc L [facility] Red Blood Cell 3.05(L) 4.00 - 5.21 x10(6)/mc L [facility] Hemoglobin 10.2(L) 11.7 - 15.5 g/dL [facility] Hematocrit 29.6(L) 35.7 - 45.8 % [facility] Mean Cell Volume 97.0(H) 82.6 - 94.[address] [facility] Mean Cell Hemoglobin 33.4(H) 27.1 - 32.[address] [facility] Mean Cell Hemoglobin Concentration 34.5 31.7 - 35.0 g/dL [facility] Platelet 136(L) 145 - 357 x10(3)/mc L [facility] RDW Standard Deviation 44.3 37.0 - 46.[address] [facility] RDW coefficient of variation 12.6 11.5 - 14.1 % [facility] Mean Platelet Volume 9.4 7.6 - 12.9 fL [facility] NRBC% auto 0.0 % [facility] NRBC Absolute 0.000 0.000 - 0.000 x10(3)/mc L [facility] Blood 05/08/2023 11:3 8 AM EDT 05/08/2023 11:44 AM EDT Narrative Resulting Agency Comment Spec In Lab Lincoln Sal MD HEMATOLOGY ORDERA BLES [facility] [place] [address] * TSH (05/08/2023 11:38 AM EDT) Thyroid Stimulating Hormone 1.27 0.27 - 4.20 mcIU/mL [facility] Comment: Reference Interval (mcIU/mL): Females: ??First Trimester: 0.23-3.88 ??Second Trimester: 0.22-3.90 ??Third Trimester: 0.44-4.66 Blood 05/08/2023 11:3 8 AM EDT 05/08/2023 11:44 AM EDT Narrative Resulting Agency Comment Spec In Lab Enrique Chua MD CHEMISTRY ORDERABLES Performing Organization Address City/[facility]/ZIP Co de Phone Number [facility] [place] [address] * (ABNORMAL) Phosphorus (05/08/2023 11:38 AM EDT) Phosphorus 4.7(H) 2.5 - 4.5 mg/dL [facility] Blood 05/08/2023 11:3 8 AM EDT 05/08/2023 11:44 AM EDT Narrative Resulting Agency Comment Spec In Lab Enrique Chua MD CHEMISTRY ORDERABLES Performing Organization Address City/[facility]/ZIP Co de Phone Number [facility] [place] [address] * Magnesium (05/08/2023 11:38 AM EDT) Magnesium 0.76 0.69 - 1.07 mmol/L [facility] Blood 05/08/2023 11:3 8 AM EDT 05/08/2023 11:44 AM EDT Narrative Resulting Agency Comment Spec In Lab Enrique Chua MD CHEMISTRY ORDERABLES Performing Organization Address City/[facility]/ZIP Co de Phone Number [facility] [place] [address] * (ABNORMAL) Basic Metabolic Panel (non-fasting) (05/08/2023 11:38 AM EDT) Glucose 97 65 - 199 mg/dL [facility] Comment:Diabetes: >=200 mg/d L plus symptoms Blood Urea Nitrogen 27(H) 8 - 18 mg/dL [facility] Creatinine 1.02 0.70 - 1.20 mg/dL [facility] Sodium 139 135 - 145 mmol/L [facility] Potassium 4.2 3.5 - 5.0 mmol/L [facility] Comment: Please note: ??Patients with WBC >100,000 may have falsely elevated Potassium levels. ??For accurate Potassium quantification in these patients send serum separator tube (gold top) for subsequent determinations. ??Contact the Clinical Chemistry Laboratory if there are any questions. Chloride 105 98 - 107 mmol/L [facility] Carbon Dioxide 20(L) 22 - 31 mmol/L [facility] Anion Gap 14 5 - 15 mmol/L [facility] Calcium 9.4 8.5 - 10.5 mg/dL [facility] Est Glomerular Filtration Rate 60 >=60 mL/min/1. 73 m?? [facility] Comment: This patient's estimated [...] Lab Enrique Chua MD CHEMISTRY ORDERABLES [facility] [place] [address] * ECHO COMPLETE (05/08/2023 11:02 AM EDT) EF 25 HEARTLAB SYSTEM Anatomical Region Laterality Modality Cardiac Other 05/08/2023 10:0 3 AM EDT Narrative 05/08/2023 11:51 AM EDT ? Echocardiogram Report Name: KIRSTIE PURNIMA M ?Study Date: 05/08/2023 10:03 AMBP: 92/64 mmHg ? Patient Location: [facility]^CV29^A : 1955 ? Height: 155 cm ? Account: [id number] Age: 67 yrs ? Weight: 78 kg Gender: Female ?BSA: 1.8 m2 Ordering Physician: ENRIQUE CHUA Referring Physician: MARIO ALBERTO CHIN Performed By: CHUCKIE Canchola Reason For Study: SAVR Stenosis Exam Location: [facility]. Interpretation Summary -Left ventricle is severely [...] worsening stenosis. Mitral regurgitation is similar. Procedure Complete-[id number]. Satisfactory quality. There is normal sinus rhythm. [...] Study Date: 0:03 AMBP: 92/64 mmHg Patient Location:[facility]^CV29^A : 1955 Height: 155 cm Account: [id number] Age: 67 yrs Weight: 78 kg Gender: Female BSA: 1.8 m2 Ordering Physician: ENRIQUE CHUA Referring Physician: MARIO ALBERTO CHIN Performed By: CHUCKIE Canchola Reason For Study: SAVR Stenosis Exam Location: [facility]. Interpretation Summary -Left ventricle is severely [...] suggestsworsening stenosis. Mitral regurgitation is similar. Procedure Complete-[id number]. Satisfactory quality. There is normal sinus rhythm. 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 Mild coronary artery disease by [facility] 11/09/2022 Mixed connective tissue disease Other [...] ejection fraction Mild coronary artery disease by [facility] 11/09/2022 Stenosis of prosthetic aortic valve [...] PRN, Starting on 05/12/23 at 0853, Until Wed05/12/23 at 0856, Intra-Operative [...] on 05/17/23 at 0900, Until Discontinued, Routine Given 05/20/2023 [...] PRN, Starting on Wed05/12/23 at 0852, Until 10/11/23 at 0856, Intra-Operative (Intra-Procedure), Routine Given 05/12/2023 [...] Gabino Calhoun RN)2054 ([place] - Provider: Favian Mckeon, VALDO) 0832 [...] 2 tablet, Oral, DAILY, First dose on [place] 05/13/23 at 2100, Until Discontinued, Post-op day [...] duplicate)173 ([place] - Provider: Kia Gallego RN) 013 (Not Given - Provider: Favian Mckeon RN [...] Kia Gallego RN) PRN Medication Order 05/20/2023 05/21/202305/22/2023 acetaminophen (Tylenol) tablet 650 mg 650 mg, [...] post-op day 1 in the AM Give [place] if unable to take PO, Routine Group [...] Routine documented in this encounter Care Teams Hydrotel Operator Relationship Specialty Start Date End Date Magdalena Acosta MD [address] [place] [address] PCP - General Family Medicine 02/05/23 documented as of this encounter
--- OUTSIDE RECORDS SUMMARY | 2024-03-07 14:35 | XMS_ITS | Encounter Summary ---
Author Organization [facility] Address [facility] [place] [address] Care Team Providers Care Presser Automatic Name Role Phone Magdalena Acosta MD Primary Care Provider [phone] Encounter Details Date Type Department Care Team (Late st Contact Info) Description 02/17/2023 2:00 PM EDT Office Visit [place] [address] Alirio Esparza MD [facility] [place] [address] Aortic valve stenosis, etiology of cardiac valve [...] 11:30 AM EST Office [place] [address] Magdalena Peralta MD [facility] [place] [address] 03/01/2025 4:15 PM EDT Office Visit Dermatology at [place] [address] [facility] [place] [address] Marek Bonilla MD [address] [facility] [place] [address] documented as of this encounter Visit Diagnoses Diagnosis Aortic valve stenosis, etiology of cardiac valve disease unspecified documented in this encounter Care Teams Presser Automatic Relationship Specialty Start Date End Date Magdalena Acosta MD [address] [place] [address] PCP - General Family Medicine 02/05/23 documented as of this encounter
--- OUTSIDE RECORDS SUMMARY | 2024-03-07 14:35 | XMS_ITS | Encounter Summary ---
Author Organization [facility] [place] [address] Care Team Providers Care Oil Well Services Field Supervisor Name Role Phone Magdalena Acosta MD Primary Care Provider [phone] Encounter Details Date Type Department Care Team [...] 11:30 AM EST [place] [address] Magdalena Peralta MD [facility] [place] [address] 03/01/2025 4:15 PM EDT Office Visit Dermatology at [address] [place] [address] Marek Bonilla MD [address] [facility] [place] [address] documented as of this encounter Visit Diagnoses Not on filedocumented in this encounter Care Teams [employer] Field Supervisor Relationship Specialty Start Date End Date Magdalena Acosta MD [address] [place] [address] PCP - General Family Medicine 02/05/23 documented as of this encounter
--- OUTSIDE RECORDS SUMMARY | 2024-03-07 14:35 | XMS_ITS | Encounter Summary ---
Author Organization [place] [address] Care Team Providers Care Schedule Planning Manager Name Role Phone Magdalena Acosta MD Primary Care Provider [phone] Encounter Details Date Type Department Care Team (Late st Contact Info) Description 05/08/2023 Telephone [place] [phone] Luis Felipe Ott MD [facility] [address] Social History Tobacco Use Types Packs/Day Years [...] 0426 Referring Provider: Nitesh Baltazar Patient Location: [facility] Presenting Symptoms per OSH: 67 year old [...] diuresis with IV furosemide 20 x 1 ([id number] at rheumatology appointment), SpO2 85% on RA -> 95% on 2L NC, HR 120s. Examination significant for decreased breath sounds at the bases. Pertinent Diagnostic Findings: CBC - Hgb 10.5 CMP - Cr 1.1 BNP 48093 HsTrop 1358 Lactate 1.6 D-dimer 1183, CTPE pending CXR demonstrated pulmonary vascular congestion US showed bilateral b lines Bedside echo reportedly similar to prior TTE for LV function OSH Interventions: ASA 324 Heparin gtt Plan: Transfer to [facility] Above recommendations/plans are based on my conversation with the referring provider. I have not personally interviewed or examined this patient. Luis Felipe Ott MD Manager Car Received a call from provider emergently at 715am. Mentating well and BP 87/53. HR 108 and diursingwell. They were about to start phenylephrine which I stressed was not a good option given concern for severe and increasing afterload. She is warm on exam, mentating and urinating and we do not need to amrit a BP if those things remain stable. Nico Segura, PGY-6 Manager Car [id number] documented in this encounter Plan of Treatment Upcoming Encounters Date Type Department Care Team (Late st Contact Info) Description 06/05/2024 11:30 AM EST Office [place] [address] Magdalena Peralta MD [facility] [place] [address] 03/01/2025 4:15 PM EDT Office Visit Dermatology at [address] [place] [phone] Marek Bonilla MD [address] [facility] [address] [place] [address] documented as of this encounter Visit Diagnoses Not on filedocumented in this encounter Care Teams Schedule Planning Manager Relationship Specialty Start Date End Date Magdalena Acosta MD [address] [place], [place] PCP - General Family Medicine 02/05/23 documented as of this encounter
--- OUTSIDE RECORDS SUMMARY | 2024-03-07 14:35 | XMS_ITS | Encounter Summary ---
[place] [address] Care Team Providers Care Pit Shoveler Name Role Phone Magdalena Acosta MD Primary Care Provider [phone] Reason for Visit * Reason Comments Skin Lesion Encounter Details Date Type Department Care Team (Late st Contact Info) Description 04/20/2023 10:00 AM EDT Office Visit Dermatology at [address] [address] Marek Bonilla MD [address] [facility] [place] [address] Seborrheic keratosis Social History Tobacco Use Types [...] cutaneous and ocular 3. Previously told by shiatsu therapist that she had corneal tears from her [...] 11:30 AM EST Office [place] [address] Magdalena Peralta MD [facility] [place] [address] 03/01/2025 4:15 PM EDT Office Visit Dermatology at [address] [phone] Marek Bonilla MD [address] [facility] [place] [address] documented as of this encounter Visit Diagnoses Diagnosis Seborrheic keratosis Other seborrheic keratosis documented in this encounter Care Teams Pit Shoveler Relationship Specialty Start Date End Date Magdalena Acosta MD [address] [place] [address] PCP - General Family Medicine 02/05/23 documented as of this encounter
--- OUTSIDE RECORDS SUMMARY | 2024-03-07 14:35 | XMS_ITS | Encounter Summary ---
[place] [address] Care Team Providers Care Gold Leaf Gilder Name Role Phone Magdalena Acosta MD Primary Care Provider [phone] Reason for Visit * Reason Comments Suture / Staple Removal Encounter Details Date Type Department Care Team (Late st Contact Info) Description 02/16/2023 10:00 AM EDT Office Visit Dermatology at [place] [address] [facility] [place] [phone] Marek Bonilla MD [address] [facility] [address] DERMATOLOGY [place], [place] [phone] Visit for suture removal Social History Tobacco [...] 11:30 AM EST Office [place] [address] Magdalena Peralta MD [facility] [place] [address] 03/01/2025 4:15 PM EDT Office Visit Dermatology at [place] [address] [place] [phone] Marek Bonilla MD [address] [facility] [address] [place] [address] documented as of this encounter Visit Diagnoses Diagnosis Visit for suture removal Encounter for removal of sutures documented in this encounter Care Teams Gold Leaf Gilder Relationship Specialty Start Date End Date Magdalena Acosta MD [address] [place] [address] PCP - General Family Medicine 02/05/23 documented as of this encounter
--- OUTSIDE RECORDS SUMMARY | 2024-03-07 14:35 | XMS_ITS | Encounter Summary ---
Author Organization [facility] [place] [address] Care Team Providers Care Avid Editor Name Role Phone Magdalena Acosta MD Primary Care Provider [phone] Encounter Details Date Type Department Care Team [...] EST Office [place] [address] Magdalena Peralta MD [facility] [place] [address] 03/01/2025 4:15 PM EDT Office Visit Dermatology at [address] [place] [address] Marek Bonilla MD [address] [facility] [place] [address] documented as of this encounter Visit Diagnoses Not on filedocumented in this encounter Care Teams Avid Editor Relationship Specialty Start Date End Date Magdalena Acosta MD [address] [place] [address] PCP - General Family Medicine 02/05/23 documented as of this encounter
--- OUTSIDE RECORDS SUMMARY | 2024-03-07 14:35 | XMS_ITS | Encounter Summary ---
Author Organization [facility], [facility] [place] [address] Care Team Providers Care Raw Mill Operator Name Role Phone Magdalena Acosta MD Primary Care Provider Encounter Details Date Type Department Care Team (Latest Contact Info) Description 02/05/2023 9:33 PM EDT - 02/05/2023 11:59 PM EDT Hospital [place] [phone] Discharge Disposition: Home Social History Tobacco Use [...] tablet Take 81 mg by mouth daily. OneTouch Verio test strips Strip USE DAILY 01/03/2022 OneTouch Delica Plus Lancet 33 gauge Misc USE DAILY 01/03/2022 cyanocobalamin, Vitamin B-12, (Vitamin B-12) 1,000 mcg [...] 11:30 AM EST Office [place] [address] Magdalena Peralta MD [facility] DR [place] [address] 03/01/2025 4:15 PM EDT Office Visit Dermatology at [place] [address] [facility] [place] [address] Marek Bonilla MD [address], [place] [address] documented as of this encounter Procedures Procedure Name Priority Date/Time Associated Diagnosis Comments SURGICAL PATHOLOGY REPORT Routine 02/05/2023 3:00 PM EDT documented in this encounter Results * Surgical Pathology Report (02/05/2023 3:00 PM EDT) Final Diagnosis [id number] ? Location: OPW The signing pathologist has (i) examined the relevant preparation(s) for the specimen(s) and (ii) rendered or confirmed the diagnosis(es). . ?Surgical Pathology DIAGNOSIS Left upper back, skin punch biopsy: - ??Compound dysplastic ??melanocytic nevus with moderate atypia, transected at peripheral specimen edges ?? (see discussion) Electronically signed by: ?Vanna CULP, Jesse Shields Verified: ??02/16/2023 8:04 ?? Dermatopathologist Performed at: ??-[facility] Dept. of Pathology, [place] [address] Senior Bookkeeper: Kunal Rubi MD, FCAP, ??CLIA Certificate: [id number] DISCUSSION If there is an obvious clinical [...] labeled A1. ??sns 02/16/2023 8:04 AM EDT [facility] SPECIMEN FROM SKIN / Unknown 02/05/2023 3:00 PM EDT 02/05/2023 3:00 PM EDT Marek Bonilla MD PATHOLOGY/CYTOLOGY Suman KHALIL [facility] [id number] [place] [address] documented in this encounter Visit Diagnoses Not on filedocumented in this encounter Care Teams Raw Mill Operator Relationship Specialty Start Date End Date Magdalena Acosta MD [address] [place] [address] PCP - General Family Medicine 02/05/23 documented as of this encounter
--- OUTSIDE RECORDS SUMMARY | 2024-03-07 14:35 | XMS_ITS | Encounter Summary ---
Author Organization [facility] Address [facility] [place] [address] Care Team Providers Care Sales Leader Name Role Phone Magdalena Acosta MD Primary Care Provider [phone] Encounter Details Date Type Department Care Team (Late st Contact Info) Description 03/29/2023 Orders Only Cardiology at [address] [phone] Ranjan Delgado MD [facility] [place] [address] Severe aortic stenosis (Primary Dx) Social History [...] 11:30 AM EST [place] [phone] Magdalena Peralta MD [facility] [place] [address] 03/01/2025 4:15 PM EDT Office Visit Dermatology at [place] [address] [place] [phone] Marek Bonilla MD [address], [place] [address] Scheduled Orders Name Type Priority Associated Diagnoses [...] documented in this encounter Care Teams Sales Leader Relationship Specialty Start Date End Date Magdalena Acosta MD [address] [place] [address] PCP - General Family Medicine 02/05/23 documented as of this encounter
--- OUTSIDE RECORDS SUMMARY | 2024-03-07 14:35 | XMS_ITS | Encounter Summary ---
Author Organization [facility] Address [facility] [place] [address] Care Team Providers Care Cement Crusher Operator Name Role Phone Magdalena Acosta MD Primary Care Provider [phone] Encounter Details Date Type Department Care Team (Late st Contact Info) Description 04/27/2023 3:00 PM EDT [place] [address] Magdalena Peralta MD [facility] [place] [address] Mixed connective tissue disease Social History Tobacco [...] 1:5120 speckled; VIC negative; Myositis panel with GUARD RANGE ab 149.1 (positive); Anti U1RNP IgG 119; [...] EST [place] [address] Magdalena Peralta MD [facility] [place] [address] 03/01/2025 4:15 PM EDT Office Visit Dermatology at [address] [place] [address] Marek Bonilla MD [address] [address], [place] [address] documented as of this encounter Visit Diagnoses Diagnosis Mixed connective tissue disease Other specified diffuse disease of connective tissue documented in this encounter Care Teams Cement Crusher Operator Relationship Specialty Start Date End Date Magdalena Acosta MD [address] [place] [address] PCP - General Family Medicine 02/05/23 documented as of this encounter
--- OUTSIDE RECORDS SUMMARY | 2024-03-07 14:35 | XMS_ITS | Encounter Summary ---
Author Organization [facility] [place] [address] Care Team Providers Care Health And Safety Specialist Name Role Phone Magdalena Acosta MD [...] 11:30 AM EST Office [place] [address] Magdalena Peralta MD [facility] [place] [address] 03/01/2025 4:15 PM EDT Office Visit Dermatology at [address] [place] [address] Marek Bonilla MD [address] [facility] [place] [address] documented as of this encounter Visit Diagnoses Not on filedocumented in this encounter Care Teams Health And Safety Specialist Relationship Specialty Start Date End Date Magdalena Acosta MD [address] [place] [address] PCP - General Family Medicine 02/05/23 documented as of this encounter
--- OUTSIDE RECORDS SUMMARY | 2024-03-07 14:35 | XMS_ITS | Encounter Summary ---
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 documented in this encounter Plan of Treatment Upcoming Encounters Date Type Department Care Team (Late st Contact Info) Description 06/05/2024 11:30 AM EST Office [place] [address] Magdalena Peralta MD [facility] [address] [place] [address] 03/01/2025 4:15 PM EDT Office Visit Dermatology at [place] [address] [place] [address] Marek Bonilla MD [address] [facility], [address] DERMATOLOGY [place], [place] [phone] documented as of this encounter Visit Diagnoses Not on filedocumented in this encounter Care Teams Car Head Liner Installer Relationship Specialty Start Date End Date Magdalena Acosta MD [address] [place] [address] PCP - General Family Medicine 02/05/23 documented as of this encounter
--- OUTSIDE RECORDS SUMMARY | 2024-03-07 14:35 | XMS_ITS | Encounter Summary ---
Author Organization [facility] Address [facility] [place] [address] Care Team Providers Care Quality Control Auditor Name Role Phone Magdalena Acosta MD Primary Care Provider [phone] Reason for Visit * Consultation (Routine) - Closed Specialty Diagnoses / Procedures Referred By Contac t Referred To Contact Rheumatology Diagnoses Weakness Kyra Haas MD [facility] [address] [place] [address] [facility] Rhe[facility] [address] [place] [phone] Referral ID Status Reason Start Date Expiration Date V isits Requested Visits Authorized [id number] Closed Consult, Test & Treat PCP Updated and/or Approved 02/25/2023 02/25/2024 6 6 Encounter Details Date Type Department Care Team (Late st Contact Info) Description 03/18/2023 1:00 PM EDT Office [place] [address] Kia Viramontes DO [facility] [place] [address] Magdalena Peralta MD [facility] [place] [address] Positive FRANCISCO (antinuclear antibody) Social [...] 1:5120 speckled VIC negative Myositis panel with PAIRER SUBSTANDARD ab 149.1 (positive) Anti U1RNP IgG 119 [...] a chair without assistance of upper extremities. Electrical Logging Operator strength 3+/5 bilaterally; otherwise large muscle [...] due to risk of retinal toxicity with computer terminal operator Plaquenil use, which she already does. Recommendations: #mixed connective tissue disease Start hydroxychloroquine 200 mg qd Labs today: repeat FRANCISCO, dsDNA, complements, CBC, CMP, CK, ESR, CRP Follow up 1 month The patient was seen and discussed with Dr. Wander Peralta MD Rheumatology Fellow Pager: [phone] CC: Kyra Haas * Kia Viramontes DO [...] EST Office [place] [address] Magdalena Peralta MD [facility] [place] [address] 03/01/2025 4:15 PM EDT Office Visit Dermatology at [place] [address] [place] [address] Marek Bonilla MD [address] [facility] [address], [place] [address] documented as of this encounter Results * Comprehensive metabolic panel (non-fasting) (03/18/2023 2:14 PM EDT) [facility] Glucose 93 65 - 199 mg/dL [facility] Comment:Diabetes: >=200 mg/d L plus symptoms Blood Urea Nitrogen 18 8 - 18 mg/dL [facility] Creatinine 0.99 0.70 - 1.20 mg/dL [facility] Sodium 141 135 - 145 mmol/L [facility] Potassium 4.5 3.5 - 5.0 mmol/L [facility] Comment: Please note: ??Patients with WBC >100,000 may have falsely elevated Potassium levels. ??For accurate Potassium quantification in these patients send serum separator tube (gold top) for subsequent determinations. ??Contact the Clinical Chemistry Laboratory if there are any questions. Chloride 106 98 - 107 mmol/L [facility] Carbon Dioxide 24 22 - 31 mmol/L [facility] Anion Gap 11 5 - 15 mmol/L [facility] Calcium 10.0 8.5 - 10.5 mg/dL [facility] Protein, Total 7.3 6.1 - 8.0 g/dL [facility] Albumin 4.3 3.2 - 5.2 g/dL [facility] Aspartate Aminotransferase 26 0 - 30 unit/L [facility] Alanine Aminotransferase 11 0 - 30 unit/L [facility] Alkaline Phosphatase 91 35 - 105 unit/L [facility] Bilirubin, Total 0.4 0.2 - 1.3 mg/dL [facility] Est Glomerular Filtration Rate 62 >=60 mL/min/1. 73 m?? [facility] Comment: This patient's estimated GFR was [...] DO CHEMISTRY ORDERABL ES Performing Organization Address City/State/[facility] Co de Phone Number [facility] [place] [address] * (ABNORMAL) FRANCISCO Ab by IFA (03/18/2023 2:14 PM EDT) FRANCISCO Ab Screen Test ? Result ?Flag ??Unit ??RefValue Antinuclear Ab, HEp-2 ?Positive 1:2560 ??@ ?<1:80 (Negative) ??Substrate, S ? ADDITIONAL INFORMATION --------- ?Method: Immunofluorescence using HEp-2 cellular substrate. ??FRANCISCO Titer: ? 1:2560 ??FRANCISCO Pattern: ? Speckled ?Test Performed by: ?[facility] ?[address] [id number] ?Chemicals Fermentation Operator: Raymond Chaudhry M.D. Ph.D.; CLIA# [id number] ([id number]) [facility] Blood 03/18/2023 2:14 PM EDT 03/18/2023 3:02 PM EDT Narrative Resulting Agency Comment Spec In Lab Kia Viramontes DO CHEMISTRY ORDERABL ES [facility] [place] [address] * DNA Antibody (Double-Stranded) (03/18/2023 2:14 PM EDT) dsDNA Ab <0.6 <=15.0 IU/mL [facility] Comment: <10 negative 10-15 equivocal >15 positive This dsDNA antibody result was generated using a fluoroenzyme immunoassay on the Eashmart 250 analyzer. This quantitative test is designed [...] Comment Spec In Lab Kia Viramontes DO LAB SEND OUT ORDER JODIE Performing Organization Address City/[facility] Co de Phone Number [facility] [place] [address] * CK (03/18/2023 2:14 PM EDT) Creatine Kinase 38 0 - 160 unit/L [facility] Blood 03/18/2023 2:14 PM EDT 03/18/2023 2:24 PM EDT Narrative Resulting Agency Comment Spec In Lab Kiagiacomo Viramontes DO CHEMISTRY ORDERABL ES Performing Organization Address [facility] Co de Phone Number [facility] [place] [address] * C4 Complement (03/18/2023 2:14 PM EDT) Complement C4 30 10 - 40 mg/dL [facility] Blood 03/18/2023 2:14 PM EDT 03/18/2023 2:24 PM EDT Narrative Resulting Agency Comment Spec In Lab Kiagiacomo Viramontes DO CHEMISTRY ORDERABL ES Performing Organization Address [facility] Co de Phone Number [facility] [place] [address] * C3 Complement (03/18/2023 2:14 PM EDT) Complement C3 142 90 - 180 mg/dL [facility] Blood 03/18/2023 2:14 PM EDT 03/18/2023 2:24 PM EDT Narrative Resulting Agency Comment Spec In Lab Kiagiacomo Viramontes DO CHEMISTRY ORDERABL ES Performing Organization Address [facility] Co de Phone Number [facility] [place] [address] * CRP, acute inflammation (03/18/2023 2:14 PM EDT) C-Reactive Protein 3.0 <=4.9 mg/L [facility] Blood 03/18/2023 2:14 PM EDT 03/18/2023 2:24 PM EDT Narrative Resulting Agency Comment Spec In Lab Kia Viramontes DO CHEMISTRY ORDERABL ES Performing Organization Address [facility] Co de Phone Number [facility] [place] [address] * (ABNORMAL) Sedimentation rate (03/18/2023 2:14 PM EDT) Sedimentation Rate Automated 68(H) 2 - 39 mm/hr [facility] Comment: Effective July 12, 2019 new capillary photometric technology has resulted in a change in reference ranges. It is recommended that each ESR result be reviewed with its own age appropriate reference range. Blood 03/18/2023 2:14 PM EDT 03/18/2023 2:24 PM EDT Narrative Resulting Agency Comment Spec In Lab Kia Viramontes DO HEMATOLOGY ORDERAB LES Performing Organization Address [facility] Co de Phone Number [facility] [place] [address] documented in this encounter Visit Diagnoses Diagnosis Positive FRANCISCO (antinuclear antibody) Other and unspecified nonspecific immunological findings documented in this encounter Care Teams Quality Control Auditor Relationship Specialty Start Date End Date Magdalena Acosta MD [address] [place] [address] PCP - General Family Medicine 02/05/23 documented as of this encounter
--- OUTSIDE RECORDS SUMMARY | 2024-03-07 14:35 | XMS_ITS | Encounter Summary ---
Author Organization [facility] [place] [address] Care Team Providers Care Cook Railroad Name Role Phone Magdalena Acosta MD Primary Care Provider [phone] Encounter Details Date Type Department Care Team [...] 11:30 AM EST [place] [address] Magdalena Peralta MD [facility] [place] [address] 03/01/2025 4:15 PM EDT Office Visit Dermatology at [address] [place] [address] Marek Bonilla MD [address] [facility] [place] [address] documented as of this encounter Visit Diagnoses Not on filedocumented in this encounter Care Teams Cook Railroad Relationship Specialty Start Date End Date Magdalena Acosta MD [address] [place] [address] PCP - General Family Medicine 02/05/23 documented as of this encounter
--- OUTSIDE RECORDS SUMMARY | 2024-03-07 14:35 | XMS_ITS | Encounter Summary ---
Author Organization [facility] Address [facility] [place] [address] Care Team Providers Care Sleeve Setter Name Role Phone Magdalena Acosta MD Primary Care Provider [phone] Encounter Details Date Type Department Care Team (Latest Contact Info) Description 03/18/2023 2:30 PM EDT Laboratory Appointment Lab [place] [phone] Positive FRANCISCO (antinuclear antibody) Social History Tobacco [...] 11:30 AM EST Office [place] [address] Magdalena Peralta MD [facility] [place] [address] 03/01/2025 4:15 PM EDT Office Visit Dermatology at [place] [address] [facility] [place] [address] Marek Bonilla MD [address] [facility], [place] [address] documented as of this encounter Procedures Procedure Name Priority Date/Time Associated Diagnosis Comments FRANCISCO AB BY IFA Routine 03/18/2023 2:14 PM EDT Positive FRANCISCO (antinuclear antibody) CRP, ACUTE INFLAMMATION Routine 03/18/2023 2:14 PM EDT Positive FRANCISCO (antinuclear antibody) DNA ANTIBODY (DOUBLE-STRANDED) Routine 03/18/2023 2:14 PM EDT Positive FRANCISCO (antinuclear antibody) HEMOGRAM Routine 03/18/2023 2:14 PM EDT Positive FRANCISCO (antinuclear antibody) DIFFERENTIAL, AUTOMATED Routine 03/18/2023 2:14 PM EDT Positive FRANCISCO (antinuclear antibody) SEDIMENTATION RATE Routine 03/18/2023 2: 14 PM EDT Positive FRANCISCO (antinuclear antibody) CBC (WITH DIFF) Routine 03/18/2023 2:14 PM EDT Positive FRANCISCO (antinuclear antibody) C3 COMPLEMENT Routine 03/18/2023 2:14 PM EDT Positive FRANCISCO (antinuclear antibody) C4 COMPLEMENT Routine 03/18/2023 2:14 PM EDT Positive FRNACISCO (antinuclear antibody) CK Routine 03/18/2023 2:14 PM EDT Positive FRANCISCO (antinuclear antibody) COMPREHENSIVE METABOLIC PANEL Routine 03/18/2023 2:14 PM EDT Positive FRANCISCO (antinuclear antibody) documented in this encounter Results * (ABNORMAL) Differential, Automated (03/18/2023 2:14 PM EDT) Neutrophil % 71.2 % [facility] Neutrophil Absolute 2.26 1.70 - 6.10 x10(3)/mc L [facility] Lymph % 18.2 % [facility] Lymphocytes Abs 0.6(L) 0.9 - 3.2 x10(3)/mc L [facility] Monocyte % 9.7 % [facility] Monocyte Abs 0.3 0.3 - 0.9 x10(3)/ L [facility] Eos % 0.3 % [facility] Eosinophils Abs 0.0 0.0 - 0.4 x10(3)/[facility] Basophil % 0.6 % [facility] Baso Absolute 0.0 0.0 - 0.1 x10(3)/ L [facility] Immature Gran % 0.00 % [facility] Comment: Immature granulocytes(IG's)percentage and absolute count will include metamyelocytes, myelocytes, and promyelocytes. Blood smears from CBCs yielding IG's will be scanned manually for concordance. If this scan disagrees with the automated IG or if promyelocytes are noted, a manual differential will be performed. Immature Gran Absolute 0.00 0.00 - 0.04 x10(3)/ L [facility] Blood 03/18/2023 2:14 PM EDT 03/18/2023 2:24 PM EDT Narrative Resulting Agency Comment Spec In Lab Magdalena Peralta MD HEMATOLOGY ORDERABLE S Performing Organization Address City/State/[facility] Co de Phone Number [facility] [place] [address] * (ABNORMAL) Hemogram (03/18/2023 2:14 PM EDT) White Blood Cell 3.2(L) 4.0 - 9.5 x10(3)/ L [facility] Red Blood Cell 3.44(L) 4.00 - 5.21 x10(6)/ L [facility] Hemoglobin 11.1(L) 11.7 - 15.5 g/dL [facility] Hematocrit 32.9(L) 35.7 - 45.8 % [facility] Mean Cell Volume 95.6(H) 82.6 - 94.4 fL [facility] Mean Cell Hemoglobin 32.3(H) 27.1 - 32.0 pg [facility] Mean Cell Hemoglobin Concentration 33.7 31.7 - 35.0 g/dL [facility] Platelet 144(L) 145 - 357 x10(3)/mc L [facility] RDW Standard Deviation 42.6 37.0 - 46.0 fL [facility] RDW coefficient of variation 12.3 11.5 - 14.1 % [facility] Mean Platelet Volume 9.4 7.6 - 12.9 fL [facility] NRBC% auto 0.0 % [facility] NRBC Absolute 0.000 0.000 - 0.000 x10(3)/mc L [facility] Blood 03/18/2023 2:14 PM EDT 03/18/2023 2:24 PM EDT Narrative Resulting Agency Comment Spec In Lab Magdalena Peralta MD HEMATOLOGY ORDERABLE S Performing Organization Address [facility] Co de Phone Number [facility] [place] [address] * (ABNORMAL) Sedimentation rate (03/18/2023 2:14 PM EDT) Sedimentation Rate Automated 68(H) 2 - 39 mm/hr [facility] Comment: Effective July 12, 2019 new capillary photometric technology has resulted in a change in reference ranges. It is recommended that each ESR result be reviewed with its own age appropriate reference range. Blood 03/18/2023 2:14 PM EDT 03/18/2023 2:24 PM EDT Narrative Resulting Agency Comment Spec In Lab Kia Viramontes DO HEMATOLOGY ORDERAB LES Performing Organization Address [facility] Co de Phone Number [facility] [place] [address] * CRP, acute inflammation (03/18/2023 2:14 PM EDT) C-Reactive Protein 3.0 <=4.9 mg/L [facility] Blood 03/18/2023 2:14 PM EDT 03/18/2023 2:24 PM EDT Narrative Resulting Agency Comment Spec In Lab Kia Viramontes DO CHEMISTRY ORDERABL ES [facility] [place] [address] * C3 Complement (03/18/2023 2:14 PM EDT) Complement C3 142 90 - 180 mg/dL [facility] Blood 03/18/2023 2:14 PM EDT 03/18/2023 2:24 PM EDT Narrative Resulting Agency Comment Spec In Lab Kia D Wander DO CHEMISTRY ORDERABL ES Performing Organization Address [facility] Co de Phone Number [facility] [place] [address] * C4 Complement (03/18/2023 2:14 PM EDT) Complement C4 30 10 - 40 mg/dL [facility] Blood 03/18/2023 2:14 PM EDT 03/18/2023 2:24 PM EDT Narrative Resulting Agency Comment Spec In Lab Kia D Wander DO CHEMISTRY ORDERABL ES Performing Organization Address [facility] Co de Phone Number [facility] [place] [address] * CK (03/18/2023 2:14 PM EDT) Creatine Kinase 38 0 - 160 unit/L [facility] Blood 03/18/2023 2:14 PM EDT 03/18/2023 2:24 PM EDT Narrative Resulting Agency Comment Spec In Lab Kia D Wander DO CHEMISTRY ORDERABL ES Performing Organization Address [facility] Co de Phone Number [facility] [place] [address] * DNA Antibody (Double-Stranded) (03/18/2023 2:14 PM EDT) dsDNA Ab <0.6 <=15.0 IU/mL [facility] Comment: <10 negative 10-15 equivocal >15 positive This dsDNA antibody result was generated using a fluoroenzyme immunoassay on the [employer] 250 analyzer. This quantitative test is designed to detect IgG antibodies directed against double stranded DNA in human serum. The presence of antibodies that recognize dsDNA is a highly specific marker for systemic lupus erythematosus. Please note that as of 05/26/2022 that this testing is performed by the Special Chemistry Laboratory at [facility]. This change in testing location is associated with a change is testing method and reference intervals. Please review the results of this test in association with the posted reference intervals. Blood 03/18/2023 2:14 PM EDT 03/19/2023 7:19 AM EDT Narrative Resulting Agency Comment Spec In Lab Kia Viramontes DO LAB SEND OUT ORDER JODIE [facility] [place] [address] * (ABNORMAL) FRANCISCO Ab by IFA (03/18/2023 2:14 PM EDT) FRANCISCO Ab Screen Test ? Result ?Flag ??Unit ??RefValue Antinuclear Ab, HEp-2 ?Positive 1:2560 ??@ ?<1:80 (Negative) ??Substrate, S ? ADDITIONAL INFORMATION --------- ?Method: Immunofluorescence using HEp-2 cellular substrate. ??FRANCISCO Titer: ? 1:2560 ??FRANCISCO Pattern: ? Speckled ?Test Performed by: ?[facility] ?[address] [place] [address] ?Lead Android Developer: Raymond Chaudhry M.D. Ph.D.; CLIA# [id number] ([id number]) [facility] Blood 03/18/2023 2:14 PM EDT 03/18/2023 3:02 PM EDT Narrative Resulting Agency Comment Spec In Lab Kia Viramontes DO CHEMISTRY ORDERABL ES [facility] [place] [address] * Comprehensive metabolic panel (non-fasting) (03/18/2023 2:14 PM EDT) Glucose 93 65 - 199 mg/dL [facility] Comment:Diabetes: >=200 mg/d L plus symptoms Blood Urea Nitrogen 18 8 - 18 mg/dL [facility] Creatinine 0.99 0.70 - 1.20 mg/dL [facility] Sodium 141 135 - 145 mmol/L [facility] Potassium 4.5 3.5 - 5.0 mmol/L [facility] Comment: Please note: ??Patients with WBC >100,000 may have falsely elevated Potassium levels. ??For accurate Potassium quantification in these patients send serum separator tube (gold top) for subsequent determinations. ??Contact the Clinical Chemistry Laboratory if there are any questions. Chloride 106 98 - 107 mmol/L [facility] Carbon Dioxide 24 22 - 31 mmol/L [facility] Anion Gap 11 5 - 15 mmol/L [facility] Calcium 10.0 8.5 - 10.5 mg/dL [facility] Protein, Total 7.3 6.1 - 8.0 g/dL [facility] Albumin 4.3 3.2 - 5.2 g/dL [facility] Aspartate Aminotransferase 26 0 - 30 unit/L [facility] Alanine Aminotransferase 11 0 - 30 unit/L [facility] Alkaline Phosphatase 91 35 - 105 unit/L [facility] Bilirubin, Total 0.4 0.2 - 1.3 mg/dL [facility] Est Glomerular Filtration Rate 62 >=60 mL/min/1. 73 m?? [facility] Comment: This patient's estimated GFR [...] DO CHEMISTRY ORDERABL ES Performing Organization Address City/State/[facility] Co de Phone Number [facility] [place] [address] documented in this encounter Visit Diagnoses Diagnosis Positive FRANCISCO (antinuclear antibody) Other and unspecified nonspecific immunological findings documented in this encounter Care Teams Sleeve Setter Relationship Specialty Start Date End Date Magdalena Acosta MD [address] [place] [address] PCP - General Family Medicine 02/05/23 documented as of this encounter
--- OUTSIDE RECORDS SUMMARY | 2024-03-07 14:35 | XMS_ITS | Encounter Summary ---
Author Organization [facility] [place] [address] Care Team Providers Care Knit Goods Press Hand Name Role Phone Magdalena Acosta MD Primary Care Provider [phone] Encounter Details Date Type Department Care Team [...] 11:30 AM EST Office [place] [address] Magdalena Peralta MD [facility] [place] [address] 03/01/2025 4:15 PM EDT Office Visit Dermatology at [address] [place] [address] Marek Bonilla MD [address] [facility] [place] [address] documented as of this encounter Visit Diagnoses Not on filedocumented in this encounter Care Teams Knit Goods Press Hand Relationship Specialty Start Date End Date Magdalena Acosta MD [address] [place] [address] PCP - General Family Medicine 02/05/23 documented as of this encounter
--- OUTSIDE RECORDS SUMMARY | 2024-03-07 14:35 | XMS_ITS | Encounter Summary ---
Author Organization [facility] [place] [address] Care Team Providers Care Local Telephone Operator Name Role Phone Magdalena Acosta MD Primary Care Provider [phone] Encounter Details Date Type Department Care Team [...] 11:30 AM EST Office [place] [address] Magdalena Peralta MD [facility] [place] [address] 03/01/2025 4:15 PM EDT Office Visit Dermatology at [address] [place] [address] Marek Bonilla MD [address] [facility] [place] [address] documented as of this encounter Visit Diagnoses Not on filedocumented in this encounter Care Teams Local Telephone Operator Relationship Specialty Start Date End Date Magdalena Acosta MD [address] [place] [address] PCP - General Family Medicine 02/05/23 documented as of this encounter
--- OUTSIDE RECORDS SUMMARY | 2024-03-07 14:36 | XMS_ITS | Encounter Summary ---
Author Organization [facility] Address [facility] [address] Care Team Providers Care Radar Tester Name Role Phone Deborah Quiroga APRN Primary Care Provider [phone] Encounter Details Date Type Department Care Team (Latest Contact Info) Description 07/03/2022 1:36 PM EST - 07/03/2022 11:59 PM EST Hospital Encounter Hematology [place] [address] Discharge Disposition: Home Social History Tobacco Use [...] Sig Dispensed Refills Start Date End Date amoxicillin (AMOXIL) 500 mg Tablet Take 2,000 [...] Lancet 33 gauge Misc USE DAILY 01/03/2022 dilTIAZem CD (Cardizem CD) 180 mg Capsule, [...] 11:30 AM EST Office [place] [address] Magdalena Peralta MD [facility] [place] [address] 03/01/2025 4:15 PM EDT Office Visit Dermatology at [place] [address] [facility] [place] [address] Marek Bonilla MD [address] [address] [place] [address] documented as of this encounter Procedures Procedure Name Priority Date/Time Associated Diagnosis Comments FOLATE, SERUM Routine 07/03/2022 1:59 PM EST VITAMIN B12 Routine 07/03/2022 1:59 PM EST documented in this encounter Results * Folate, serum (07/03/2022 1:59 PM EST) Folate >20.0 4.8 - 24.2 ng/mL [facility] Blood Venous Draw / Unknown 07/03/2022 1:59 PM EST 07/03/2022 2:13 PM EST Narrative Resulting Agency Comment Spec In Lab Markel Borjas MD CHEMISTRY ORDERABL ES Performing Organization Address City/[facility]/ZIP Co de Phone Number [facility] [place] [address] * Vitamin B12 (07/03/2022 1:59 PM EST) Vitamin B12 449 232 - 1,245 pg/mL [facility] Blood Venous Draw / Unknown 07/03/2022 1:59 PM EST 07/03/2022 2:13 PM EST Narrative Resulting Agency Comment Spec In Lab Markel Borjas MD CHEMISTRY ORDERABL ES Performing Organization Address [facility] Co de Phone Number [facility] [place] [address] documented in this encounter Visit Diagnoses Not on filedocumented in this encounter Care Teams Radar Tester Relationship Specialty Start Date End Date Deborah Quiroga APRN PCP - General Family Medicine 03/24/16 02/04/23 documented as of this encounter
--- OUTSIDE RECORDS SUMMARY | 2024-03-07 14:36 | XMS_ITS | Encounter Summary ---
Author Organization [facility] Erika ló[place] [address] Care Team Providers Care Digital Intern Name Role Phone Deborah Quiroga APRN Primary Care Provider [phone] Encounter Details Date Type Department Care Team (Late st Contact Info) Description 06/05/2021 Interpretation Only [address] [address] Deborah Quiroga APRN [address] [address] Social History Tobacco Use Types Packs/Day Years [...] AM EST Office [place] [address] Magdalena Peralta MD [facility] [place] [address] 03/01/2025 4:15 PM EDT Office Visit Dermatology at [place] [address] [facility] [place] [address] Marek Bonilla MD [address] [place] [address] documented as of this encounter Procedures Procedure Name Priority Date/Time Associated Diagnosis Comments MAMMO SCREENING CAD AND ERLIN BILATERAL Routine 06/05/2021 11:42 AM EDT documented in this encounter Results * Mammo Screening Cad and Erlin Bilateral (06/05/2021 11:42 AM EDT) PT CLASS O DH RAD ADMITDTTM DH RAD PT DH RAD INFO [id number]^EVERET T^DEBORAH^E DH RAD EXAM DESC MADDSCTO^BREAST SCREEN [...] questions please contact the health child care team lead that requested your imaging first. ? Electronically signed by: Rocael Villatoro MD, [facility] ([phone]), at 06/05/2021 1:27 PM Narrative 06/05/2021 1:27 [...] have questions please contactthe health child care team lead that requested your imaging first. Electronically signed by: Rocael Villatoro MD, [facility]([phone]), at 06/05/2021 1:27 PM Deborah Quiroga APRN IMG MAMMO ORDERABLE S documented in this encounter Visit Diagnoses Not on filedocumented in this encounter Care Teams Digital Intern Relationship Specialty Start Date End Date Deborah Quiroga APRN PCP - General Family Medicine 03/24/16 02/04/23 documented as of this encounter
--- OUTSIDE RECORDS SUMMARY | 2024-03-07 14:36 | XMS_ITS | Encounter Summary ---
Author Organization [facility] [place] [address] Care Team Providers Care Shooter Helper Name Role Phone Deborah Quiroga APRN Primary Care Provider [phone] Encounter Details Date Type Department Care Team (Late st Contact Info) Description 06/17/2022 Ancillary Procedure [place] [address] Deborah Quiroga PC TECH [address] [facility] [address] [place], [place] [address] Social History Tobacco Use Types Packs/Day Years [...] 11:30 AM EST [place] [address] Magdalena Peralta MD [facility] [place] [address] 03/01/2025 4:15 PM EDT Office Visit Dermatology at [address] [place] [address] Marek Bonilla MD [address], [place] [address] documented as of this encounter Procedures Procedure Name Priority Date/Time Associated Diagnosis Comments FILM LIBRARY STORAGE ONLY MR SPINE Routine 06/17/2022 12:00 AM EST documented in this encounter Results * Film Library- Storage Only MR Spine (06/17/2022 12:00 AM EST) Narrative [facility] - 06/18/2022 11:00 AM EST This exam is auto-finalizing. It's purpose is for storage only. Deborah Quiroga APRN IMGerman FILM LIBRARY OR DERABLES Performing Organization Address City/State/[facility] Co de Phone Number [employer], [place] documented in this encounter Visit Diagnoses Not on filedocumented in this encounter Care Teams Shooter Helper Relationship Specialty Start Date End Date Deborah Quiroga APRN PCP - General Family Medicine 03/24/16 02/04/23 documented as of this encounter
--- OUTSIDE RECORDS SUMMARY | 2024-03-07 14:36 | XMS_ITS | Encounter Summary ---
Author Organization [facility] Address [facility] [place] [address] Care Team Providers Care Shopping Investigator Name Role Phone Junaid Deborah Shields APRN Primary Care Provider [phone] Encounter Details Date Type Department Care Team (Late st Contact Info) Description 03/01/2020 11:30 AM EDT Office Visit H[place]ology [place] [address] Patrick Borjas MD [facility] [address] [place] [address] Neutropenia, unspecified type Social History Tobacco Use [...] 03/01/2020 11:30 AM EDT Hematology Outpatient [facility] Hematology Outpatient Consult Note CC: 60 year [...] TOUCH PREP, CLOT SECTION, CORE ??BIOPSY); [OSR# [id number], COLLECTED 06/23/2016, 19 SLIDES]: ?1. 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 Extremities: No edema. Labs: Hgb= 12.4 Ejmb=252 ANC= 2.5 Imaging As above - reviewed [...] 11:30 AM EST Office [place] [address] Magdalena Peralta MD [facility] [place] [address] 03/01/2025 4:15 PM EDT Office Visit Dermatology at [address] [place] [address] Marek Bonilla MD [address] [place] [address] RD, [place] [address] documented as of this encounter Visit Diagnoses Diagnosis Neutropenia, unspecified type documented in this encounter Care Teams Shopping Investigator Relationship Specialty Start Date End Date Deborah Quiroga APRN PCP - General Family Medicine 03/24/16 02/04/23 documented as of this encounter
--- OUTSIDE RECORDS SUMMARY | 2024-03-07 14:36 | XMS_ITS | Encounter Summary ---
[place] [address] Care Team Providers Care Home Health Administrator Name Role Phone Magdalena Acosta MD Primary Care Provider [phone] Reason for Visit * Reason Comments Annual Exam Encounter Details Date Type Department Care Team (Late st Contact Info) Description 02/05/2023 2:30 PM EDT Office Visit Dermatology at [address] [address] Marek Bonilla MD [address] [facility] [place] [address] Rosacea; Ocular rosacea; Nevus Social History Tobacco [...] cutaneous and ocular 2. Previously told by spanish lecturer that she had corneal tears from her [...] 11:30 AM EST [place] [address] Magdalena Peralta MD [facility] [place] [address] 03/01/2025 4:15 PM EDT Office Visit Dermatology at [place] [address] [place] [address] Marek Bonilla MD [address] [facility] [place] [address] documented as of this encounter Visit Diagnoses Diagnosis Rosacea Ocular rosacea Rosacea Nevus Benign neoplasm of skin, site unspecified documented in this encounter Care Teams Home Health Administrator Relationship Specialty Start Date End Date Magdalena Acosta MD [address] [place] [address] PCP - General Family Medicine 02/05/23 documented as of this encounter
--- OUTSIDE RECORDS SUMMARY | 2024-03-07 14:36 | XMS_ITS | Encounter Summary ---
[place] [address] Care Team Providers Care Member Service Specialist Name Role Phone Ashley Quirogan Cornelius ANURAG Primary Care Provider [phone] Reason for Visit * Reason Onset Date Comments Results 12/03/2016 Encounter Details Date Type Department Care Team (Late st Contact Info) Description 12/03/2016 Telephone Hematology [place] [address] Yudith Valentine RN Results Social [...] EDT RN received call from Maddy at [facility] reporting critical WBC at 1.61, and ANC of 0.5. She will fax the full results to this office for nurse reviewer notified DR Borjas of above results documented in this encounter Plan of Treatment Upcoming Encounters Date Type Department Care Team (Late st Contact Info) Description 06/05/2024 11:30 AM EST Office [place] [address] Magdalena Peralta MD [facility] [place] [address] 03/01/2025 4:15 PM EDT Office Visit Dermatology at [place] [address] [place] [address] Marek Bonilla MD [address] [place] [place] [address] documented as of this encounter Visit Diagnoses Not on filedocumented in this encounter Care Teams Member Service Specialist Relationship Specialty Start Date End Date Deborah Quiroga APRN PCP - General Family Medicine 03/24/16 02/04/23 documented as of this encounter
--- OUTSIDE RECORDS SUMMARY | 2024-03-07 14:36 | XMS_ITS | Encounter Summary ---
Author Organization [facility] [place] [address] Care Team Providers Care Fishing Line Winding Machine Operator Name Role Phone Junaid Deborah Shields APRN Primary Care Provider [phone] Encounter Details Date Type Department Care Team (Latest Contact Info) Description 11/09/2022 10:37 AM EDT - 11/09/2022 4:53 PM EDT Hospital Encounter [place] [address] Nitesh Escobedo MD [facility] [place] [address] Aortic valve stenosis, etiology of cardiac valve [...] Center 02/05/2023 2:30 PM Marek Bonilla MD [facility] New Medications to be Picked Up None For questions regarding this document or issues relating to this hospitalization on the Medical Service, please contact your inpatient physician through the [facility] Spin Tank Tender . Issues afterhours and on weekends will be handled by the Hospitalist staff on-call. * Attachments The following attachments cannot be sent through Care Everywhere. * Coronary Angiogram: Post-op (Omani) * Right Heart Catheterization: Pulmonary Artery Catheterization: Post-op (Omani) documented in this encounter Medications at Time [...] Lancet 33 gauge Misc USE DAILY 01/03/2022 meloxicam (Mobic) 15 mg tablet Take 15 [...] - 11/09/2022 11:20 AM EDT . [facility] Interventional Cardiology Adult Pre-Procedure H&P Update: Cardiac Catheterization Purnima Thacker [id number] 1955 Chief Complaint: BONILLA HPI: Purnima Thacker [...] MD Interventional Cardiology 11/09/22 11:43 AM [facility] Pager: [phone] documented in this encounter Plan of Treatment Upcoming Encounters Date Type Department Care Team (Late st Contact Info) Description 06/05/2024 11:30 AM EST Office Visit [place] [address] Magdalena Peralta MD [facility] [place] [address] 03/01/2025 4:15 PM EDT Office Visit Dermatology at [place] [address] [place] [address] Marek Bonilla MD [address], [place] [place] [address] documented as of this encounter Procedures Procedure Name Priority Date/Time Associated Diagnosis Comments CARDIAC CATHETERIZATION Routine 11/10/19 1:05 PM EDT Aortic valve stenosis, etiology of cardiac valve disease unspecified Cath Plmt Left Heart Cath & Arts W/Inj & Angio Img S&I ([id number]) 11/09/2022 11:51 AM EDT Aortic valve stenosis, etiology of cardiac valve disease unspecified EKG 12-LEAD Routine 11/09/2022 11:17 AM EDT Aortic valve stenosis, etiology of cardiac valve disease unspecified documented in this encounter Results * CARDIAC CATHETERIZATION (11/09/2022 1:05 PM EDT) Anatomical Region Laterality Modality Other Narrative 11/09/2022 2:01 PM EDT ?[facility] ? Cardiac Catheterization/Intervention Report ? Patient Name: Purnima Thacker. ? Procedure Date: 11/09/2022 ? A #: [id number] ? Primary Physician: Nitesh Escobedo ? Case #: [id number] ? File Name: [id number] ? Catheterization Order Number: [id number] ? [facility] ? Final Report [place], [place] ? Patient Name: ? Purnima M. Kirstie ? ID#: ?[id number] ? : ?1955 ? Procedure Date: ? [...] was designated as ASA Class III. The [facility] clinical frailty scale ?is 4: Vulnerable. [...] angiography, right heart ?catheterization and oximetry. ? iNtesh Escobedo M.D. ? Electronically Signed by: Nitesh [...] (Bezet) 457 ms MUSE SYSTEM Calculated P Dudley 44 degrees MUSE SYSTEM Calculated R Dudley 33 degrees MUSE SYSTEM Calculated T Dudley 30 degrees MUSE SYSTEM INTERPRETATION Sinus rhythm Occasional Premature ventricular complexes Otherwise normal ECG When compared with ECG of 21-SEP-2016 12:26, Premature ventricular complexes are now Present OK interval has decreased Nonspecific T wave abnormality has replaced inverted T waves in Inferior leads I personally reviewed the tracing and edited the fellows interpretation Confirmed by fellow MD Anitha, [facility] ([id number]) on 11/09/2022 6:17:28 PM Confirmed by Elsa [...] MD) documented in this encounter Care Teams Fishing Line Winding Machine Operator Relationship Specialty Start Date End Date Deborah Quiroga, ANURAG PCP - General Family Medicine 03/24/16 02/04/23 documented as of this encounter
--- OUTSIDE RECORDS SUMMARY | 2024-03-07 14:36 | XMS_ITS | Encounter Summary ---
Author Organization [facility] Address [facility] [place] [address] Care Team Providers Care Customer Sales Service Manager Name Role Phone Deborah Quiroga APRN Primary Care Provider [phone] Encounter Details Date Type Department Care Team (Late st Contact Info) Description 06/18/2017 External Results Hematology [place] [address] Alexandrea Greenwood RN Neutropenia, unspecified type Social [...] EST Office [place] [address] Magdalena Peralta MD [facility] [place] [address] 03/01/2025 4:15 PM EDT Office Visit Dermatology at [address] [place] [address] Marek Bonilla MD [address] [place] [address] documented as of this encounter Procedures Procedure Name Priority Date/Time Associated Diagnosis Comments CBC (WITH DIFF) Routine 06/11/2017 1:19 PM EST Neutropenia, unspecified type COMPREHENSIVE METABOLIC PANEL Routine 06/11/2017 1:19 PM EST Neutropenia, unspecified type documented in this encounter Results * Comprehensive metabolic panel (non-fasting) (06/11/2017 1:19 PM EST) Pathologist [facility] Blood Urea Nitrogen 13 7 - 18 EXTERNAL LAB Creatinine 1.02 0.55 - 1.02 EXTERNAL LAB Protein, Total 7.7 6.4 - 8.2 EXTERNAL LAB Albumin 3.9 3.4 - 5.0 EXTERNAL LAB Bilirubin, Total 0.32 0.2 - 1.0 EXTERNAL LAB Alkaline Phosphatase 111 46 - 116 EXTERNAL L AB Aspartate Aminotransferase 20 15 - 37 EXTERNAL LAB Alanine Aminotransferase 19 14 - 59 EXTERNAL LAB Blood specimen (specimen) 06/11/2017 1:19 PM EST Markel Borjas MD CHEMISTRY ORDERABL ES Performing Organization Address City/[facility]/ZIP Co de Phone Number EXTERNAL LAB * (ABNORMAL) CBC (with Diff) (06/11/2017 1:19 PM EST) Pathologist [facility] White Blood Cell 2.28(EXTER NAL/ABN) 4.4 - 10.8 EXTERNAL LAB Hemoglobin 13.9 12.0 - 15.5 EXTERNAL LAB Hematocrit 43.2 36.0 - 46.0 EXTERNAL LAB Platelet 269 130 - 400 EXTERNAL LAB ANC 0.63(EXTER NAL/ABN) 1.2 - 6.7 EXTERNAL LAB Blood specimen (specimen) 06/11/2017 1:19 PM EST Markel Borjas MD HEMATOLOGY ORDERAB LES EXTERNAL LAB documented in this encounter Visit Diagnoses Diagnosis Neutropenia, unspecified type documented in this encounter Care Teams Customer Sales Service Manager Relationship Specialty Start Date End Date Deborah Quiroga APRN PCP - General Family Medicine 03/24/16 02/04/23 documented as of this encounter
--- OUTSIDE RECORDS SUMMARY | 2024-03-07 14:36 | XMS_ITS | Encounter Summary ---
Author Organization [facility] Address [facility] [place] [address] Care Team Providers Care Engine Repairer Production Name Role Phone Ashley Quirogazac Shields APRN Primary Care Provider [phone] Reason for Referral * Consultation (Routine) - Closed Specialty Diagnoses / Procedures Referred By Contac t Referred To Contact Neurology Diagnoses Neck pain Popeye Rogers MD [facility] [place] [address] Kyra Haas MD [facility] [address] [address] Referral ID Status Reason Start Date Expiration Date V isits Requested Visits Authorized [id number] Closed Consult, Test & Treat 06/29/2022 06/29/2023 1 1 Reason for Visit * Reason Comments Neck Pain Weak in both arms, p ain and tingling in arms and hands Encounter Details Date Type Department Care Team (Late st Contact Info) Description 06/29/2022 10:20 AM EST Office Visit [facility] [place] [address] Popeye Rogers MD [facility] [place] [address] Neck pain Social History Tobacco Use Types [...] have EMG and nerve conduction studies in [place] that showed carpal tunnel syndrome. I do not have a copy of that report. documented in this encounter Plan of Treatment Upcoming Encounters Date Type Department Care Team (Late st Contact Info) Description 06/05/2024 11:30 AM EST Office [place] [address] Magdalena Peralta MD [facility] [place] [address] 03/01/2025 4:15 PM EDT Office Visit Dermatology at [address] [place] [address] Marek Bonilla MD [address] [place] [address], [place] [address] Scheduled Referrals Name Type Priority Associated Diagnoses Orde r Schedule Referral to Neurology Outpatient Referral Routine Neck pain Ordered: 06/29/2022 documented as of this encounter Visit Diagnoses Diagnosis Neck pain Cervicalgia documented in this encounter Care Teams Engine Repairer Production Relationship Specialty Start Date End Date Deborah Quiroga APRN PCP - General Family Medicine 03/24/16 02/04/23 documented as of this encounter
--- OUTSIDE RECORDS SUMMARY | 2024-03-07 14:36 | XMS_ITS | Encounter Summary ---
Author Organization [facility] Address [facility] [place] [address] Care Team Providers Care Embedded Systems Software Developer Name Role Phone Deborah Quiroga ANURAG Primary Care Provider [phone] Encounter Details Date Type Department Care Team (Late st Contact Info) Description 11/11/2020 Refill Dermatology at [address] [address] Taylor Malone, RV SERVICE TECHNICIAN Social History Tobacco Use Types Packs/Day Years [...] 11:30 AM EST [place] [address] Magdalena Peralta MD [facility] [place] [address] 03/01/2025 4:15 PM EDT Office Visit Dermatology at [address] [address] Marek Bonilla MD [address] [place] [address], TODD A DERMATOLOGY [place], [place] [address] documented as of this encounter Visit Diagnoses Not on filedocumented in this encounter Care Teams Embedded Systems Software Developer Relationship Specialty Start Date End Date Deborah Quiroga APRN PCP - General Family Medicine 03/24/16 02/04/23 documented as of this encounter
--- OUTSIDE RECORDS SUMMARY | 2024-03-07 14:36 | XMS_ITS | Encounter Summary ---
Author Organization [facility] Address [facility] [place] [address] Care Team Providers Care Grader Operator Name Role Phone Deborah Quiroga ANURAG Primary Care Provider [phone] Encounter Details Date Type Department Care Team (Late st Contact Info) Description 01/13/2021 Refill Dermatology at [address] [address] Taylor Malone, SKIVER MACHINE Social History Tobacco Use Types Packs/Day Years [...] 11:30 AM EST [place] [address] Magdalena Peralta MD [facility] [place] [address] 03/01/2025 4:15 PM EDT Office Visit Dermatology at [address] [address] Marek Bonilla MD [address] [place] [address], TODD A DERMATOLOGY [place], [place] [id number] documented as of this encounter Visit Diagnoses Not on filedocumented in this encounter Care Teams Grader Operator Relationship Specialty Start Date End Date Deborah Quiroga APRN PCP - General Family Medicine 03/24/16 02/04/23 documented as of this encounter
--- OUTSIDE RECORDS SUMMARY | 2024-03-07 14:36 | XMS_ITS | Encounter Summary ---
[place] [address] Care Team Providers Care Tank Inspector Name Role Phone Deborah Quiroga APRN Primary Care Provider [phone] Reason for Referral * Consultation (Routine) - Closed Specialty Diagnoses / Procedures Referred By Contac t Referred To Contact Rheumatology Diagnoses Positive FRANCISCO (antinuclear antibody) Arthralgia, unspecified joint Sandy Wu APRN [address] [place] [address] [facility] [address] [place] [phone] Referral ID Status Reason Start Date Expiration Date V isits Requested Visits Authorized [id number] Closed Consult, Test & Treat PCP Updated and/or Approved 01/01/2022 01/01/2023 6 6 Encounter Details Date Type Department Care Team (Latest Contact Info) Description 01/01/2022 Transcribe Orders eDH Incoming Referrals [phone] aSndy Wu APRN [address] [place], [place] [id number] Positive FRANCISCO (antinuclear antibody); Arthralgia, unspecified joint [...] 11:30 AM EST Office [place] [address] [facility] [place] [address] 03/01/2025 4:15 PM EDT Office Visit Dermatology at [place] [address] [place] [address] Marek Bonilla MD [address], [place] [address] Scheduled Referrals Name Type Priority Associated Diagnoses Orde r Schedule Referral to Rheumatology Outpatient Referral Routine Positive FRANCISCO (antinuclear antibody) Arthralgia, unspecified joint Ordered: 01/01/2022 documented as of this encounter Visit Diagnoses Diagnosis Positive FRANCISCO (antinuclear antibody) Other and unspecified nonspecific immunological findings Arthralgia, unspecified joint documented in this encounter Care Teams Tank Inspector Relationship Specialty Start Date End Date Deborah Quiroga APRN PCP - General Family Medicine 03/24/16 02/04/23 documented as of this encounter
--- OUTSIDE RECORDS SUMMARY | 2024-03-07 14:36 | XMS_ITS | Encounter Summary ---
Author Organization [facility] Address [facility] [place] [address] Care Team Providers Care Marketing Development Specialist Name Role Phone Deborah Quiroga ANURAG Primary Care Provider [phone] Encounter Details Date Type Department Care Team (Late st Contact Info) Description 07/21/2017 Orders Only Hematology [place] [address] Alexandrea Greenwood RN Other neutropenia Social History [...] 11:30 AM EST Office [place] [address] Magdalena Peralta MD [facility] [place] [address] 03/01/2025 4:15 PM EDT Office Visit Dermatology at [place] [address] [facility] [place] [address] Marek Bonilla MD [address] [facility] [address] [facility], [place] [address] documented as of this encounter Visit Diagnoses Diagnosis Other neutropenia documented in this encounter Care Teams Marketing Development Specialist Relationship Specialty Start Date End Date Deborah Quiroga, FOREST RANGER PCP - General Family Medicine 03/24/16 02/04/23 documented as of this encounter
--- OUTSIDE RECORDS SUMMARY | 2024-03-07 14:36 | XMS_ITS | Encounter Summary ---
Author Organization [facility] Address [facility] [place] [address] Care Team Providers Care Proof Operator Name Role Phone Deborah Quiroga APRN Primary Care Provider [phone] Encounter Details Date Type Department Care Team (Late st Contact Info) Description 02/06/2020 Orders Only [place]ematology [place] [address] Markel Borjas MD [facility] [address] [place] [address] Neutropenia, unspecified type Social History Tobacco Use [...] 11:30 AM EST Office [place] [address] Magdalena Peralta MD [facility] [place] [address] 03/01/2025 4:15 PM EDT Office Visit Dermatology at [address] [place] [address] Marek Bonilla MD [address] [place] [address] documented as of this encounter Visit Diagnoses Diagnosis Neutropenia, unspecified type documented in this encounter Care Teams Proof Operator Relationship Specialty Start Date End Date Deborah Quiroga APRN PCP - General Family Medicine 03/24/16 02/04/23 documented as of this encounter
--- OUTSIDE RECORDS SUMMARY | 2024-03-07 14:36 | XMS_ITS | Encounter Summary ---
[place] [address] Care Team Providers Care Regulatory Coordinator Name Role Phone Junaid Deborah Shields APRN Primary Care Provider [phone] Reason for Visit * Reason Comments Follow-up Encounter Details Date Type Department Care Team (Late st Contact Info) Description 01/10/2021 4:30 PM EDT Office Visit Dermatology at [place] [address] [place] [address] Marek Bonilla MD [address] [facility] DERMATOLOGY [place], [place] [address] Rosacea Social History Tobacco Use Types Packs/Day [...] cutaneous and ocular 2. Previously told by polls or surveys interviewer that she had corneal tears from her [...] 3 refills. Will call this in her [facility] in [place] 3. Continue metronidazole 0.75% gel applying once [...] 11:30 AM EST Office [place] [address] [facility] [place] [address] 03/01/2025 4:15 PM EDT Office Visit Dermatology at [place] [address] [place] [address] Marek Bonilla MD [address] [facility], [place] [address] documented as of this encounter Visit Diagnoses Diagnosis Rosacea documented in this encounter Care Teams Regulatory Coordinator Relationship Specialty Start Date End Date Deborah Quiroga APRN PCP - General Family Medicine 03/24/16 02/04/23 documented as of this encounter
--- OUTSIDE RECORDS SUMMARY | 2024-03-07 14:36 | XMS_ITS | Encounter Summary ---
Author Organization [facility] [place] [address] Care Team Providers Care Typewriters Functional Tester Name Role Phone Deborah Quiroga APRN Primary Care Provider [phone] Encounter Details Date Type Department Care Team [...] 11:30 AM EST Office [place] [address] Magdalena Peralta MD [facility] [place] [address] 03/01/2025 4:15 PM EDT Office Visit Dermatology at [address] [place] [address] Marek Bonilla MD [address], [place] [address] documented as of this encounter Visit Diagnoses Not on filedocumented in this encounter Care Teams Typewriters Functional Tester Relationship Specialty Start Date End Date Deborah Quiroga APRN PCP - General Family Medicine 03/24/16 02/04/23 documented as of this encounter
--- OUTSIDE RECORDS SUMMARY | 2024-03-07 14:36 | XMS_ITS | Encounter Summary ---
Author Organization [facility] Address [facility] [place] [address] Care Team Providers Care Precision Instrument And Tool Maker Name Role Phone Junaid Deborah Shields APRN Primary Care Provider [phone] Reason for Visit * Reason Comments Schedule Office Case Pain right leg Encounter Details Date Type Department Care Team (Late st Contact Info) Description 12/11/2016 9:00 AM EDT Office Visit Hematology [place] [address] Markel Borjas MD [facility] DR HEMATOLOGY [place] [address] Neutropenia, unspecified type Social History Tobacco Use [...] 12/11/2016 9:00 AM EDT Hematology Outpatient Clinic [facility] Hematology Outpatient Consult Note CC: [...] TOUCH PREP, CLOT SECTION, CORE ??BIOPSY); [OSR# [id number], COLLECTED 06/23/2016, 19 SLIDES]: ?1. 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 Extremities: No edema. Labs: Hgb= 13 Efkv=631 ANC= 0.5 Imaging As above - reviewed [...] 11:30 AM EST Office [place] [address] Magdalena Peralta MD [facility] [place] [address] 03/01/2025 4:15 PM EDT Office Visit Dermatology at [place] [address] [place] [address] Marek Bonilla MD [address] [facility], [place] [address] documented as of this encounter Results * (ABNORMAL) CBC (with Diff) (06/11/2017 1:19 PM EST) [facility] White Blood Cell 2.28(EXTER NAL/ABN) 4.4 - 10.8 EXTERNAL LAB Hemoglobin 13.9 12.0 - 15.5 EXTERNAL LAB Hematocrit 43.2 36.0 - 46.0 EXTERNAL LAB Platelet 269 130 - 400 EXTERNAL LAB ANC 0.63(EXTER NAL/ABN) 1.2 - 6.7 EXTERNAL LAB Blood specimen (specimen) 06/11/2017 1:19 PM EST Markel Borjas MD HEMATOLOGY ORDERAB LES EXTERNAL LAB * Comprehensive metabolic panel (non-fasting) (06/11/2017 1:19 PM EST) [facility] Blood Urea Nitrogen 13 7 - 18 [...] type documented in this encounter Care Teams Precision Instrument And Tool Maker Relationship Specialty Start Date End Date Deborah Quiroga APRN PCP - General Family Medicine 03/24/16 02/04/23 documented as of this encounter
--- OUTSIDE RECORDS SUMMARY | 2024-03-07 14:36 | XMS_ITS | Encounter Summary ---
Author Organization [facility] Address [facility] [place] [address] Care Team Providers Care Foreign Service Teacher Name Role Phone Deborah Quiroga ANURAG Primary Care Provider [phone] Encounter Details Date Type Department Care Team (Late st Contact Info) Description 12/04/2016 External Results [place]ematology [place] [phone] Teresa Dodson RN Social History Tobacco Use [...] 11:30 AM EST Office [place] [address] Magdalena Peralta MD [facility] [place] [address] 03/01/2025 4:15 PM EDT Office Visit Dermatology at [place] [address] [facility] [place] [address] Marek Bonilla MD [address] [facility] [address] Katherine [place] [address] documented as of this encounter Procedures Procedure Name Priority Date/Time Associated Diagnosis Comments CBC (WITH DIFF) Routine 12/03/2016 11:35 AM EDT COMPREHENSIVE METABOLIC PANEL Routine 12/03/2016 11:35 AM EDT documented in this encounter Results * (ABNORMAL) Comprehensive metabolic panel (non-fasting) (12/03/2016 11:35 AM EDT) Glucose 85(Car Worker Helper al Lab) Blood Urea Nitrogen 11(Car Worker Helper al Lab) Creatinine 0.93(Exte rnal Lab) Sodium 140(Exter nal Lab) Potassium 4.2(Exter nal Lab) Chloride 104(Exter nal Lab) Calcium 10.0(Exte rnal Lab) Protein, Total 8.1(Exter nal Lab) Albumin 3.5(Exter nal Lab) Bilirubin, Total 0.25(Exte rnal Lab) Alkaline Phosphatase 96(Car Worker Helper al Lab) Aspartate Aminotransferase 18(Car Worker Helper al Lab) Alanine Aminotransferase 21(Car Worker Helper al Lab) Blood specimen (specimen) 12/03/2016 11:35 AM EDT Historical Provider CHEMISTRY ORDERAB LES * (ABNORMAL) CBC (with Diff) (12/03/2016 11:35 AM EDT) White Blood Cell 1.61(EXTER NAL/ABN) 4.4 - 10.8 Hemoglobin 13.0(Exter nal Lab) Hematocrit 39.8(Exter nal Lab) Platelet 248(Car Worker Helper al Lab) ANC 0.5(SAILING OFFICER AL/ABN) Blood specimen (specimen) 12/03/2016 11:35 AM EDT Historical Provider HEMATOLOGY ORDERA BLES documented in this encounter Visit Diagnoses Not on filedocumented in this encounter Care Teams Foreign Service Teacher Relationship Specialty Start Date End Date Deborah Quiroga, PARTS REPRESENTATIVE PCP - General Family Medicine 03/24/16 02/04/23 documented as of this encounter
--- OUTSIDE RECORDS SUMMARY | 2024-03-07 14:36 | XMS_ITS | Encounter Summary ---
Author Organization [facility] Address [facility] [place] [address] Care Team Providers Care Powerhouse Attendant Name Role Phone Deborah Quiroga ANURAG Primary Care Provider [phone] Encounter Details Date Type Department Care Team (Late st Contact Info) Description 01/14/2023 Refill Dermatology at [address] [address] Lupe Connor RN Social History [...] She would like the medication called into [facility] in [facility]. Discussed with Dr. Bonilla and he has approved refill of the Doxycycline 50 mg take one capsule by mouth daily in the evenings dispense 30 capsules with 2 refills. Patient notified. documented in this encounter Plan of Treatment Upcoming Encounters Date Type Department Care Team (Late st Contact Info) Description 06/05/2024 11:30 AM EST Office [place] [address] Magdalena Peralta MD [facility] [place] [address] 03/01/2025 4:15 PM EDT Office Visit Dermatology at [place] [address] [facility] [place] [address] Marek Bonilla MD [address], [place] [address] documented as of this encounter Visit Diagnoses Not on filedocumented in this encounter Care Teams Powerhouse Attendant Relationship Specialty Start Date End Date Deborah Quiroga APRN PCP - General Family Medicine 03/24/16 02/04/23 documented as of this encounter
--- OUTSIDE RECORDS SUMMARY | 2024-03-07 14:36 | XMS_ITS | Encounter Summary ---
Author Organization [facility] [place] [address] Care Team Providers Care Civil Engineering Draftsperson Name Role Phone Deborah Quiroga APRN Primary Care Provider [phone] Encounter Details Date Type Department Care Team [...] 11:30 AM EST Office [place] [address] Magdalena Peralta MD [facility] [place] [address] 03/01/2025 4:15 PM EDT Office Visit Dermatology at [address] [place] [phone] Marek Bonilla MD [address] [facility] [address], [place] [address] documented as of this encounter Visit Diagnoses Not on filedocumented in this encounter Care Teams Civil Engineering Draftsperson Relationship Specialty Start Date End Date Deborah Quiroga APRN PCP - General Family Medicine 03/24/16 02/04/23 documented as of this encounter
--- OUTSIDE RECORDS SUMMARY | 2024-03-07 14:36 | XMS_ITS | Encounter Summary ---
Author Organization [facility] Erika [place] [address] Care Team Providers Care Gas Meter Repairer Name Role Phone Deborah Quiroga APRN Primary Care Provider [phone] Encounter Details Date Type Department Care Team (Late st Contact Info) Description 06/05/2021 Interpretation Only [address] [address] Deborah Quiroga APRN [address] [id number] Social History Tobacco Use Types Packs/Day Years [...] 11:30 AM EST Office [place] [address] Magdalena Peralta MD [facility] [place] [address] 03/01/2025 4:15 PM EDT Office Visit Dermatology at [place] [address] [facility] [place] [address] Marek Bonilla MD [address], [place] [address] documented as of this encounter Procedures Procedure Name Priority Date/Time Associated Diagnosis Comments DXA CENTRAL SPINE, HIP, AND/OR WHOLE BODY (GENERIC) Routine 06/05/2021 11:58 AM EDT documented in this encounter Results * DXA Central Spine, Hip, and/or Whole Body (Generic) (06/05/2021 11:58 AM EDT) PT CLASS O RAD ADMITDTTM RAD PT RAD INFO [id number]^E VERETT^DEBORAH ^E RAD EXAM DESC XDXAC^DEXA SCAN [...] have questions please contact the health healthcare or medical that requested your imaging first. ? Narrative [...] who have questions please contactthe health healthcare or medical that requested your imaging first. Electronically signed by: Rocael Villatoro MD, [facility]([phone]), at 06/05/2021 12:00 PM Deborah Quiroga APRN IMGerman DEXA ORDERABLES documented in this encounter Visit Diagnoses Not on filedocumented in this encounter Care Teams Gas Meter Repairer Relationship Specialty Start Date End Date Deborah Quiroga APRN PCP - General Family Medicine 03/24/16 02/04/23 documented as of this encounter
--- OUTSIDE RECORDS SUMMARY | 2024-03-07 14:36 | XMS_ITS | Encounter Summary ---
Author Organization [facility] Address [facility] [address] Care Team Providers Care Margin Clerk Name Role Phone Deborah Quiroga APRN Primary Care Provider [phone] Encounter Details Date Type Department Care Team (Late st Contact Info) Description 06/18/2017 11:00 AM EST Office Visit [place] [address] Markel Borjas MD [facility] [address] [place] [address] Neutropenia, unspecified type Social History Tobacco Use [...] 06/18/2017 11:00 AM EST Hematology Outpatient Clinic [facility] Hematology Outpatient Consult Note CC: [id number] [...] TOUCH PREP, CLOT SECTION, CORE ??BIOPSY); [OSR# [id number], COLLECTED 06/23/2016, 19 SLIDES]: ?1. ??Normocellular marrow [...] a clonal lymphoproliferative or myeloproliferative disorder (OSR# [id number]) Chromosome analysis on the marrow aspirate revealed [...] working the same job and participating in [employer] patients. Past Medical/Surgical History: 1. Leukopenia -element of neutropenia, as noted above 2. Aortic Stenosis -severe -AVR surgery 3. Hypercholesterolemia 4. Depression 5. Hypertension 6. 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 Extremities: No edema. Labs: Hgb= 13 Ibzo=731 ANC= 0.6 Imaging As above - reviewed [...] 11:30 AM EST [place] [address] Magdalena Peralta MD [facility] [place] [address] 03/01/2025 4:15 PM EDT Office Visit Dermatology at [address] [place] [address] Marek Bonilla MD [address] [place] [address], [place] [address] documented as of this encounter Visit Diagnoses Diagnosis Neutropenia, unspecified type documented in this encounter Care Teams Margin Clerk Relationship Specialty Start Date End Date Deborah Quiroga APRN PCP - General Family Medicine 03/24/16 02/04/23 documented as of this encounter
--- OUTSIDE RECORDS SUMMARY | 2024-03-07 14:36 | XMS_ITS | Encounter Summary ---
Author Organization [facility] Address [facility] [place] [place] [address] Care Team Providers Care Contact Center Assistant Name Role Phone Deborah Quiroga APRN Primary Care Provider [phone] Encounter Details Date Type Department Care Team (Latest Contact Info) Description 07/03/2022 12:28 PM EST - 07/03/2022 1:35 PM EST Hospital Encounter Hematology [place] [address] Chronic idiopathic neutropenia Discharge Disposition: Home Social [...] 11:30 AM EST Office [place] [address] Magdalena Peralta MD [facility] [place] [address] 03/01/2025 4:15 PM EDT Office Visit Dermatology at [place] [address] [facility] [place] [address] Marek Bonilla MD [address], [place] [address] documented as of this encounter Procedures Procedure Name Priority Date/Time Associated Diagnosis Comments HEMOGRAM Routine 07/03/2022 12:40 PM EST Chronic idiopathic neutropenia DIFFERENTIAL, AUTOMATED Routine 07/03/2022 12:40 PM EST Chronic idiopathic neutropenia HC CBC,PLT & AUTO DIFF Routine 12:40 PM EST Chronic idiopathic neutropenia COMPREHENSIVE METABOLIC PANEL Routine 07/03/2022 12:40 PM EST Chronic idiopathic neutropenia documented in this encounter Results * (ABNORMAL) Differential, Automated (07/03/2022 12:40 PM EST) Neutrophil % 72.9 % [facility] Neutrophil Absolute 2.61 1.70 - 6.10 x10(3)/mc L [facility] Lymph % 18.4 % [facility] Lymphocytes Abs 0.7(L) 0.9 - 3.2 x10(3)/mc L [facility] Monocyte % 8.4 % [facility] Monocyte Abs 0.3 0.3 - 0.9 x10(3)/mc L [facility] Eos % 0.0 % [facility] Eosinophils Abs 0.0 0.0 - 0.4 x10(3)/mc L [facility] Basophil % 0.3 % [facility] Baso Absolute 0.0 0.0 - 0.1 x10(3)/mc L [facility] Immature Gran % 0.00 % [facility] Comment: Immature granulocytes(IG's)percentage and absolute count will include metamyelocytes, myelocytes, and promyelocytes. Blood smears from CBCs yielding IG's will be scanned manually for concordance. If this scan disagrees with the automated IG or if promyelocytes are noted, a manual differential will be performed. Immature Gran Absolute 0.00 0.00 - 0.04 x10(3)/mc L [facility] Blood 07/03/2022 12:4 0 PM EST 07/03/2022 1:03 PM EST Narrative Resulting Agency Comment Spec In Lab Markel Borjas MD HEMATOLOGY ORDERAB LES [facility] [place] [address] * (ABNORMAL) Hemogram (07/03/2022 12:40 PM EST) White Blood Cell 3.6(L) 4.0 - 9.5 x10(3)/ L [facility] Red Blood Cell 3.61(L) 4.00 - 5.21 x10(6)/mc L [facility] Hemoglobin 11.7 11.7 - 15.5 g/dL [facility] Hematocrit 34.5(L) 35.7 - 45.8 % [facility] Mean Cell Volume 95.6(H) 82.6 - 94.4 fL [facility] Mean Cell Hemoglobin 32.4(H) 27.1 - 32.0 pg [facility] Mean Cell Hemoglobin Concentration 33.9 31.7 - 35.0 g/dL [facility] Platelet 171 145 - 357 x10(3)/[facility] RDW Standard Deviation 40.5 37.0 - 46.0 [facility] RDW coefficient of variation 11.5 11.5 - 14.1 % [facility] Mean Platelet Volume 9.2 7.6 - 12.9 [facility] NRBC% auto 0.0 % [facility] NRBC Absolute 0.000 0.000 - 0.000 x10(3)/[facility] Blood 07/03/2022 12:4 0 PM EST 07/03/2022 1:03 PM EST Narrative Resulting Agency Comment Spec In Lab Markel Borjas MD HEMATOLOGY ORDERAB LES [facility] [place] [address] * (ABNORMAL) Comprehensive metabolic panel (non-fasting) (07/03/2022 12:40 PM EST) Glucose 92 65 - 199 mg/dL [facility] Comment:Diabetes: >=200 mg/d L plus symptoms Blood Urea Nitrogen 22(H) 8 - 18 mg/dL [facility] [...] - 107 mmol/L [facility] Carbon Dioxide 23 22 - 31 mmol/L [facility] Anion Gap 11 5 - 15 mmol/L [facility] Calcium 10.1 8.5 - 10.5 mg/dL [facility] Protein, Total 7.6 6.1 - 8.0 g/dL [facility] Albumin 4.1 3.2 - 5.2 g/dL [facility] Aspartate Aminotransferase 25 0 - 30 unit/L [facility] Alanine Aminotransferase 14 0 - 30 unit/L [facility] Alkaline Phosphatase 80 35 - 105 unit/L [facility] Bilirubin, Total 0.3 0.2 - 1.3 mg/dL [facility] Est Glomerular Filtration Rate 81 >=60 mL/min/1. 73 m?? [facility] [...] CHEMISTRY ORDERABL ES [facility] [place] [address] documented in this encounter Visit Diagnoses Diagnosis Chronic idiopathic neutropenia Other neutropenia documented in this encounter Care Teams Contact Center Assistant Relationship Specialty Start Date End Date Deborah Quiroga, SPUDDER PCP - General Family Medicine 03/24/16 02/04/23 documented as of this encounter
--- OUTSIDE RECORDS SUMMARY | 2024-03-07 14:36 | XMS_ITS | Encounter Summary ---
[place] [address] Care Team Providers Care Support Architect Name Role Phone Deborah Quiroga ANURAG Primary Care Provider [phone] Encounter Details Date Type Department Care Team (Late st Contact Info) Description 02/07/2020 Telephone Hematology [place] [address] Ellen Rios RN Social History [...] 02/07/2020 12:59 PM EDT Message received from recreational vehicle repairer: Injection/Infusion Referral Services to be provided for pt are: CBC only at [facility]- Pt will go by 02/27 Orders faxed to [phone]). Spoke with pt. She will call [facility] directly to schedule a time that works for her. documented in this encounter Plan of Treatment Upcoming Encounters Date Type Department Care Team (Late Contact Info) Description 06/05/2024 11:30 AM EST Office [place] [address] Magdalena Peralta MD [facility] [place] [address] 03/01/2025 4:15 PM EDT Office Visit Dermatology at [place] [address] [facility] [place] [address] Marek Bonilla MD [address] [facility], [place] [place] [address] documented as of this encounter Visit Diagnoses Not on filedocumented in this encounter Care Teams Support Architect Relationship Specialty Start Date End Date Deborah Quiroga APRN PCP - General Family Medicine 03/24/16 02/04/23 documented as of this encounter
--- OUTSIDE RECORDS SUMMARY | 2024-03-07 14:36 | XMS_ITS | Encounter Summary ---
Author [place] [address] Care Team Providers Care Ore Buyer Name Role Phone Ashley Quirogazac Shields APRN Primary Care Provider [phone] Reason for Visit * Reason Comments Annual Exam Encounter Details Date Type Department Care Team (Late st Contact Info) Description 01/09/2022 3:15 PM EDT Office Visit Dermatology at [address] [address] Marek Bonilla MD [address] [facility] A DERMATOLOGY [place], [place] [id number] Rosacea Social History Tobacco Use Types Packs/Day [...] cutaneous and ocular 2. Previously told by business project manager that she had corneal tears from her [...] refills. We will call this into her [facility] pharmacy in [place] 3. Continue metronidazole 0.75% gel applying every other day after washing as needed. We will give her 45 g with 5 refills. 4. Return to clinic in a year for repeat check CC: Deborah Quiroga APRN documented in this encounter Plan of Treatment Upcoming Encounters Date Type Department Care Team (Late st Contact Info) Description 06/05/2024 11:30 AM EST Office [place] [address] Magdalena Peralta MD [facility] [place] [address] 03/01/2025 4:15 PM EDT Office Visit Dermatology at [address] [place] [address] Marek Bonilla MD [address] [facility] [place] [address] documented as of this encounter Visit Diagnoses Diagnosis Rosacea documented in this encounter Care Teams Ore Buyer Relationship Specialty Start Date End Date Deborah Quiroga APRN PCP - General Family Medicine 03/24/16 02/04/23 documented as of this encounter
--- OUTSIDE RECORDS SUMMARY | 2024-03-07 14:36 | XMS_ITS | Encounter Summary ---
Author Organization [facility] Address [facility] [place] [address] Care Team Providers Care Canvas Cutter Hand Name Role Phone Junaid Deborah Shields APRN Primary Care Provider [phone] Encounter Details Date Type Department Care Team (Late st Contact Info) Description 03/04/2020 External Results Hematology [place] [address] Theroux, Bhumi Cornelius Social History Tobacco Use [...] 11:30 AM EST Office [place] [address] Magdalena Peralta MD [facility] [place] [address] 03/01/2025 4:15 PM EDT Office Visit Dermatology at [address] [place] [address] Marek Bonilla MD [address] [facility] [place] [address] documented as of this encounter Procedures Procedure Name Priority Date/Time Associated Diagnosis Comments LIPID PANEL (NO REFLEX) Routine 02/28/2020 7:45 AM EDT CBC (WITH DIFF) Routine 02/28/2020 7:45 AM EDT COMPREHENSIVE METABOLIC PANEL Routine 02/28/2020 7:45 AM EDT documented in this encounter Results * (ABNORMAL) Lipid Panel (No Reflex) (02/28/2020 7:45 AM EDT) Cholesterol, Total 179 <200 EXTERNAL LAB Triglyceride 254(EXTER NAL/ABN) <150 EXTERNAL LAB HDL Cholesterol 50 40 - 60 EXTERNAL LAB LDL Cholesterol 79 <100 EXTERNAL LAB Blood specimen (specimen) 02/28/2020 7:45 AM EDT Historical Provider CHEMISTRY ORDERAB LES Performing Organization Address City/[facility] Co de Phone Number EXTERNAL LAB * (ABNORMAL) Comprehensive metabolic panel (non-fasting) (02/28/2020 7:45 AM EDT) Glucose 109(EXTER NAL/ABN) 74 - 106 EXTERNAL LAB Blood Urea Nitrogen 16 7 - 18 EXTERNAL LAB Creatinine 1.02 0.55 - 1.02 EXTERNAL LAB Est Glomerular Filtration Rate 54.56(EXT ERNAL/ABN ) EXTERNAL LAB Sodium 142 135 - 145 EXTERNAL LAB Potassium 4.2 3.5 - 5.1 EXTERNAL LAB Chloride 106 98 - 107 EXTERNAL LAB Carbon Dioxide 25 21.0 - 32.0 EXTERNAL LAB Calcium 8.9 8.5 - 10.1 EXTERNAL LAB Protein, Total 7.3 6.4 - 8.2 EXTERNAL LAB Albumin 3.5 3.4 - 5.0 EXTERNAL LAB Bilirubin, Total 0.2 0.2 - 1.0 EXTERNAL LAB Alkaline Phosphatase 111 46 - 116 EXTERNAL L AB Aspartate Aminotransferase 19 15 - 37 EXTERNAL LAB Alanine Aminotransferase 28 14 - 59 EXTERNAL LAB Blood specimen (specimen) 02/28/2020 7:45 AM EDT Historical Provider MD CHEMISTRY ORDERAB LES Performing Organization Address City/[facility]/ZIP Co de Phone Number EXTERNAL LAB * (ABNORMAL) CBC (with Diff) (02/28/2020 7:45 AM EDT) White Blood Cell 3.51(EXTER NAL/ABN) 4.4 - 10.8 EXTERNAL LAB Hemoglobin 12.4 11.2 - 15.7 EXTERNAL LAB Hematocrit 36.3 36.0 - 46.0 EXTERNAL LAB Platelet 182 130 - 400 EXTERNAL LAB ANC 2.24 1.2 - 6.7 EXTERNAL LAB Lymph Absolute Manual 0.95(EXTER NAL/ABN) 1.2 - 3.4 EXTERNAL LAB Blood specimen (specimen) 02/28/2020 7:45 AM EDT Historical Provider HEMATOLOGY KITA SUÁREZ EXTERNAL LAB documented in this encounter Visit Diagnoses Not on filedocumented in this encounter Care Teams Canvas Cutter Hand Relationship Specialty Start Date End Date Deborah Quiroga, SPECIAL PROJECTS COORDINATOR PCP - General Family Medicine 03/24/16 02/04/23 documented as of this encounter
--- OUTSIDE RECORDS SUMMARY | 2024-03-07 14:36 | XMS_ITS | Encounter Summary ---
[place] [address] Care Team Providers Care Production Grader Name Role Phone Ashley Quiroagn Cornelius ANURAG Primary Care Provider [phone] Reason for Visit * Reason Comments Skin Check Encounter Details Date Type Department Care Team (Late st Contact Info) Description 11/11/2020 10:45 AM EDT Office Visit Dermatology at [address] [place] [address] Marek Bonilla MD [address] [facility], [place] A DERMATOLOGY [place], [place] [phone] Rosacea; Acrochordon Social History Tobacco Use Types [...] Discussed the possibility of getting this through [facility] or from the [facility] pharmacy if necessary. She has not yet [...] AM EST Office [place] [address] Magdalena Peralta MD [facility] DR [place] [address] 03/01/2025 4:15 PM EDT Office Visit Dermatology at [address] [place] [address] Marek Bonilla MD [address], [place] [address] documented as of this encounter Visit Diagnoses Diagnosis Rosacea Acrochordon Unspecified hypertrophic and atrophic condition of skin documented in this encounter Care Teams Production Grader Relationship Specialty Start Date End Date Deborah Quiroga APRN PCP - General Family Medicine 03/24/16 02/04/23 documented as of this encounter
--- OUTSIDE RECORDS SUMMARY | 2024-03-07 14:36 | XMS_ITS | Encounter Summary ---
Author Organization [facility] Address [facility] [place] [address] Care Team Providers Care Installer Technician Name Role Phone Deborah Quiroga APRN Primary Care Provider [phone] Reason for Visit * Reason Comments Follow-up Encounter Details Date Type Department Care Team (Late st Contact Info) Description 07/03/2022 1:30 PM EST Office Visit Hematology [place] [address] Markel Borjas MD [facility] [address] HEMATOLOGY [place] [address] Consuelo Sommer APRN [facility] [address] HEMATOLOGY [place] [address] Chronic idiopathic neutropenia; Dysuria Social History Tobacco [...] 07/03/2022 1:30 PM EST Hematology Outpatient Clinic [facility] Hematology Outpatient Consult Note CC: [...] TOUCH PREP, CLOT SECTION, CORE ??BIOPSY); [OSR# [id number], COLLECTED 06/23/2016, 19 SLIDES]: ?1. 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 Extremities: No edema. Labs: Hgb= 11.7 Wfqz=941 ANC= 2.5 Imaging As above - reviewed [...] 11:30 AM EST Office [place] [address] Magdalena Peralta MD [facility] [place] [address] 03/01/2025 4:15 PM EDT Office Visit Dermatology at [place] [address] [facility] [place] [address] Marek Bonilla MD [address] [facility], [address] A DERMATOLOGY [place], [place] [id number] documented as of this encounter Procedures Procedure [...] tract infection, submit a new specimen. (A) [facility] Clean Catch Urine 07/03/2022 2:00 PM EST 07/03/2022 5:55 PM EST Narrative Resulting Agency Comment Spec In Lab Markel Borjas MD MICROBIOLOGY - GEN ERAL ORDERABLES Performing Organization Address [facility] Co de Phone Number [facility] [place] [address] * (ABNORMAL) Urinalysis Microscopic Exam (07/03/2022 2:00 PM EST) Pathologist [facility] RBC, Urine 2 0 - 4 /HPF [facility] WBC, Urine 14(H) 0 - 5 /HPF [facility] Bacteria, Urine Occasional (A) None /HPF [facility] Squamous Epithelial Cells Raw Data, Urine 12(H) <=4 /HPF [facility] Hyaline Casts, Urine 2 0 - 2 /LPF [facility] Clean Catch Urine 07/03/2022 2:00 PM EST 07/03/2022 2:29 PM EST Narrative Resulting Agency Comment Spec In Lab Markel Borjas MD URINE ORDERABLES Performing Organization Address [facility] Co de Phone Number [facility] [place] [address] * (ABNORMAL) Urinalysis with reflex Culture (07/03/2022 2:00 PM EST) Pathologist [facility] Glucose, Urine Dipstick Negative Negative mg/dL [facility] Protein, Urine Dipstick 30(A) Negative mg/dL [facility] Bilirubin, Urine Dipstick Negative Negative mg/dL [facility] Comment: Clinical correlation required for positive Urine Bilirubin results as false positive may occur with some drugs and drug related products. If a false positive is suspected a serum total bilirubin should be considered if clinically indicated. Urobilinogen, Urine Dipstick Normal Normal mg/dL [facility] pH, Urn (dipstick) 5.5 5.0 - 8.0 [facility] Blood, Urine Dipstick Negative Negative mg/dL [facility] Ketone, Urine Dipstick Trace(A) Negative mg/dL [facility] Nitrite, Urine Dipstick Negative Negative [facility] Leukocytes, Urine Dipstick Small(A) Negative [facility] Appearance, Urine Dipstick Clear Clear [facility] Specific [place] Urine Automated 1.022 1.005 - 1.030 [facility] Color, Urine Dipstick Yellow Yellow [facility] Reflex to Culture Yes [facility] Clean Catch Urine 07/03/2022 2:00 PM EST 07/03/2022 2:29 PM EST Narrative Resulting Agency Comment Spec In Lab Markel Borjas MD URINE ORDERABLES Performing Organization Address City/State/[facility] Co de Phone Number [facility] [place] [address] * (ABNORMAL) Comprehensive metabolic panel (non-fasting) (07/03/2022 12:40 PM EST) Glucose 92 65 - 199 mg/dL [facility] Comment:Diabetes: >=200 mg/d L plus symptoms Blood Urea Nitrogen 22(H) 8 - 18 mg/dL [facility] Creatinine 0.80 0.70 - 1.20 mg/dL [facility] Sodium 139 135 - 145 mmol/L [facility] Potassium 4.2 3.5 - 5.0 mmol/L [facility] Comment: Please note: ??Patients with WBC >100,000 may have falsely elevated Potassium levels. ??For accurate Potassium quantification in these patients send serum separator tube (gold top) for subsequent determinations. ??Contact the Clinical Chemistry Laboratory if there are any questions. Chloride 105 98 - 107 mmol/L [facility] Carbon Dioxide 23 22 - 31 mmol/L [facility] Anion Gap 11 5 - 15 mmol/L [facility] Calcium 10.1 8.5 - 10.5 mg/dL [facility] Protein, Total 7.6 6.1 - 8.0 g/dL [facility] Albumin 4.1 3.2 - 5.2 g/dL [facility] Aspartate Aminotransferase 25 0 - 30 unit/L [facility] Alanine Aminotransferase 14 0 - 30 unit/L [facility] Alkaline Phosphatase 80 35 - 105 unit/L [facility] Bilirubin, Total 0.3 0.2 - 1.3 mg/dL [facility] Est Glomerular Filtration Rate 81 >=60 mL/min/1. 73 m?? [facility] [...] Lab Markel Borjas MD CHEMISTRY ORDERABL ES [facility] [place] [address] documented in this encounter Visit Diagnoses Diagnosis Chronic idiopathic neutropenia Other neutropenia Dysuria documented in this encounter Care Teams Installer Technician Relationship Specialty Start Date End Date Deborah Quiroga, POLYMER SPECIALIST PCP - General Family Medicine 03/24/16 02/04/23 documented as of this encounter
--- OUTSIDE RECORDS SUMMARY | 2024-03-07 14:36 | XMS_ITS | Encounter Summary ---
Author Organization [facility] Address [facility] Erika [place] [place] [address] Care Team Providers Care Broth Setter Name Role Phone Deborah Quiroga APRN Primary Care Provider [phone] Reason for Visit * Consultation (Routine) - Closed Specialty Diagnoses / Procedures Referred By Contkrystle t Referred To Contact Rheumatology Diagnoses Positive FRANCISCO (antinuclear antibody) Arthralgia, unspecified joint Sandy Wu APRN [address] [place] [address] [facility] Rheumatology [address] [place] [address] Referral ID Status Reason Start Date Expiration Date V isits Requested Visits Authorized [id number] Closed Consult, Test & Treat PCP Updated and/or Approved 01/01/2022 01/01/2023 6 6 Encounter Details Date Type Department Care Team (Latest Contact Info) Description 01/20/2022 10:00 AM EDT Office [place] [address] Raymond Loredo MD [facility] [place] [address] Rosacea; Raynaud's phenomenon without gangrene; [...] over radiocarpal or ulnocarpal joints. Hands: Normal electroencephalogram technologist and claw. SJC/TJC 0/0. Hips: Full motion, [...] can be done locally or here at [facility] that the current time is not particularly interested it seems Raymond Loredo MD documented in this encounter Plan of Treatment Upcoming Encounters Date Type Department Care Team (Late st Contact Info) Description 06/05/2024 11:30 AM EST Office [place] [address] Magdalena Peralta MD [facility] [place] [address] 03/01/2025 4:15 PM EDT Office Visit Dermatology at [address] [phone] Marek Bonilla MD [address] [facility] [place] [address] Scheduled Referrals Name Type Priority Associated Diagnoses [...] syndrome documented in this encounter Care Teams Broth Setter Relationship Specialty Start Date End Date Deborah Quiroga APRN PCP - General Family Medicine 03/24/16 02/04/23 documented as of this encounter
--- OUTSIDE RECORDS SUMMARY | 2024-03-07 14:36 | XMS_ITS | Encounter Summary ---
Author Organization [facility] [address] Care Team Providers Care Cnc Set Up Operator Name Role Phone Deborah Quiroga ANURAG Primary Care Provider [phone] Encounter Details Date Type Department Care Team (Late st Contact Info) Description 11/02/2022 [place] [phone] Emily Lyons PA [facility] [place] [address] Aortic valve stenosis, etiology of cardiac valve [...] 11:30 AM EST Office [place] [phone] Magdalena Peralta MD [facility] [place] [address] 03/01/2025 4:15 PM EDT Office Visit Dermatology at [address] [phone] Marek Bonilla MD [address] [facility] [address] [address], [place] [address] documented as of this encounter Visit Diagnoses Diagnosis Aortic valve stenosis, etiology of cardiac valve disease unspecified documented in this encounter Care Teams Cnc Set Up Operator Relationship Specialty Start Date End Date Deborah Quiroga APRN PCP - General Family Medicine 03/24/16 02/04/23 documented as of this encounter
--- OUTSIDE RECORDS SUMMARY | 2024-03-07 14:36 | XMS_ITS | Encounter Summary ---
[place] [address] Care Team Providers Care Prior Authorization Nurse Name Role Phone Ashley Quirogan Cornelius ANURAG Primary Care Provider [phone] Reason for Visit * Reason Comments Acrochordon Rosacea Encounter Details Date Type Department Care Team (Late st Contact Info) Description 12/05/2020 3:00 PM EDT Office Visit Dermatology at [address] [address] Marek Bonilla MD [address] [facility], [place] [address] Inflamed acrochordon Social History Tobacco Use Types [...] EST Office [place] [address] Magdalena Peralta MD [facility] [place] [address] 03/01/2025 4:15 PM EDT Office Visit Dermatology at [place] [address] [facility] [place] [phone] Marek Bonilla MD [address] [facility] [address], [place] [address] documented as of this encounter Visit Diagnoses Diagnosis Inflamed acrochordon Unspecified hypertrophic and atrophic condition of skin documented in this encounter Care Teams Prior Authorization Nurse Relationship Specialty Start Date End Date Deborah Quiroga APRN PCP - General Family Medicine 03/24/16 02/04/23 documented as of this encounter
--- OUTSIDE RECORDS SUMMARY | 2024-03-07 14:36 | XMS_ITS | Encounter Summary ---
Author Organization [facility] Address [facility] [place] [address] Care Team Providers Care Pig Iron Loader Name Role Phone Junaid Deborah Shields APRN Primary Care Provider [phone] Encounter Details Date Type Department Care Team (Latest Contact Info) Description 06/22/2022 10:00 AM EST Office [place] [address] Raymond Loredo MD [facility] [place] [address] Raynaud's phenomenon without gangrene; Positive FRANCISCO (antinuclear [...] can be done locally or here at [facility] that the current time is not particularly [...] for surgery by Dr. Rogers here at [facility]. In addition to painful dysesthesias in her [...] over radiocarpal or ulnocarpal joints. Hands: Normal mine wirer and claw. SJC/TJC 0/0. Knees: Decreased flexion [...] EST Office [place] [address] Magdalena Peralta MD [facility] DR [place]HEUMAT[place] [address] 03/01/2025 4:15 PM EDT Office Visit Dermatology at [place] [address] [facility] [place] [address] Marek Bonilla MD [address] [facility] [address], [place] [address] documented as of this encounter Visit Diagnoses Diagnosis Raynaud's phenomenon without gangrene Positive FRANCISCO (antinuclear antibody) Other and unspecified nonspecific immunological findings Primary osteoarthritis involving multiple joints Cervical disc disorder at C6-C7 level with radiculopathy documented in this encounter Care Teams Pig Iron Loader Relationship Specialty Start Date End Date Deborah Quiroga APRN PCP - General Family Medicine 03/24/16 02/04/23 documented as of this encounter
--- OUTSIDE RECORDS SUMMARY | 2024-03-07 14:36 | XMS_ITS | Encounter Summary ---
Author Organization [facility] Address [facility] [place] [address] Care Team Providers Care Front End Technician Name Role Phone Deborah Quiroga APRN Primary Care Provider [phone] Encounter Details Date Type Department Care Team (Late st Contact Info) Description 01/09/2022 Refill Dermatology at [address] [address] Lupe Connor RN Social History [...] 11:30 AM EST Office Visit [place] [address] Magdalena Peralta MD [facility] [address] 03/01/2025 4:15 PM EDT Office Visit Dermatology at [address] [address] Marek Bonilla MD [address] [place] [address], [place] [address] documented as of this encounter Visit Diagnoses Not on filedocumented in this encounter Care Teams Front End Technician Relationship Specialty Start Date End Date Deborah Quiroga APRN PCP - General Family Medicine 03/24/16 02/04/23 documented as of this encounter
--- OUTSIDE RECORDS SUMMARY | 2024-03-07 14:36 | XMS_ITS | Encounter Summary ---
Author Organization [facility] [place] [address] Care Team Providers Care Founder Ceo & President Name Role Phone Deborah Quiroga APRN Primary Care Provider [phone] Encounter Details Date Type Department Care Team [...] 11:30 AM EST Office [place] [address] Magdalena Peralta MD [facility] [place] [address] 03/01/2025 4:15 PM EDT Office Visit Dermatology at [address] [place] [address] Marek Bonilla MD [address] [facility] [address], [place] [address] documented as of this encounter Visit Diagnoses Not on filedocumented in this encounter Care Teams Founder Ceo & President Relationship Specialty Start Date End Date Deborah Quiroga APRN PCP - General Family Medicine 03/24/16 02/04/23 documented as of this encounter
--- OUTSIDE RECORDS SUMMARY | 2024-03-07 14:36 | XMS_ITS | Encounter Summary ---
[place] [address] Care Team Providers Care Manager Forms Name Role Phone Ashley Quirogan Cornelius ANURAG Primary Care Provider [phone] Reason for Visit * Reason Onset Date Comments Medical Care Coordination 07/27/2017 Encounter Details Date Type Department Care Team (Late st Contact Info) Description 07/27/2017 Telephone Hematology [place] [address] Alexandrea Greenwood RN Medical Care Coordination Social [...] 07/27/2017 12:25 PM EST Message received from trade union secretary: Injection/Infusion Referral Call placed to [facility] @ [phone] Spoke w/ TOOL PLANER SET UP OPERATOR Services to be provided for pt are: CBC/CMP DONE Q6 MONTHS X2 STARTING NOVEMBER 2017 TECH confirmed they would provide services to pt - I CALLED PT, LM. Pt orders faxed to [phone] documented in this encounter Plan of Treatment Upcoming Encounters Date Type Department Care Team (Late st Contact Info) Description 06/05/2024 11:30 AM EST Office [place] [address] Magdalena Peralta MD [facility] [place] [address] 03/01/2025 4:15 PM EDT Office Visit Dermatology at [place] [address] [facility] [place] [address] Marek Bonilla MD [address] [facility] [address], [place] [address] documented as of this encounter Visit Diagnoses Not on filedocumented in this encounter Care Teams Manager Forms Relationship Specialty Start Date End Date Deborah Quiroga APRN PCP - General Family Medicine 03/24/16 02/04/23 documented as of this encounter
--- OUTSIDE RECORDS SUMMARY | 2024-03-07 14:36 | XMS_ITS | Encounter Summary ---
Author Organization [facility] [place] [address] Care Team Providers Care Tester Food Products Name Role Phone Deborah Quiroga APRN Primary Care Provider [phone] Encounter Details Date Type Department Care Team (Late st Contact Info) Description 11/09/2022 11:30 AM EDT - 11/09/2022 12:30 PM EDT Surgery Employment [place] [address] Nitesh Escobeod MD [facility] [address] CARDIAC CATHETERIZATION Social History Tobacco Use Types [...] Center 02/05/2023 2:30 PM Marek Bonilla MD [facility] New Medications to be Picked Up None For questions regarding this document or issues relating to this hospitalization on the Medical Service, please contact your inpatient physician through the [facility] Dairy Nutrition Specialist . Issues afterhours and on weekends will be handled by the Hospitalist staff on-call. * Attachments The following attachments cannot be sent through Care Everywhere. * Coronary Angiogram: Post-op ([place]) * Right Heart Catheterization: Pulmonary Artery Catheterization: Post-op ([place]) documented in this encounter Medications at Time [...] MD - 11/09/2022 11:20 AM EDT . [facility] Interventional Cardiology Adult Pre-Procedure H&P Update: Cardiac Catheterization Purnima Thacker [id number] 1955 Chief Complaint: BONILLA HPI: Purnima Thacker [...] Marrero MD Interventional Cardiology 11/09/22 11:43 AM [facility] Pager: [phone] documented in this encounter Plan of Treatment Upcoming Encounters Date Type Department Care Team (Late st Contact Info) Description 06/05/2024 11:30 AM EST [place] [address] Magdalena Peralta MD [facility] [place] [address] 03/01/2025 4:15 PM EDT Office Visit Dermatology at [place] [address] [facility] [place] [address] Marek Bonilla MD [address] [facility] [address], [address] [place] [address] documented as of this encounter Procedures Procedure Name Priority Date/Time Associated Diagnosis Comments CARDIAC CATHETERIZATION Routine 11/10/19 23 1:05 PM EDT Aortic valve stenosis, etiology of cardiac valve disease unspecified Cath Plmt Left Heart Cath & Arts W/Inj & Angio Img S&I ([id number]) 11/09/2022 11:51 AM EDT Aortic valve stenosis, etiology of cardiac valve disease unspecified EKG 12-LEAD Routine 11/09/2022 11:17 AM EDT Aortic valve stenosis, etiology of cardiac valve disease unspecified documented in this encounter Results * CARDIAC CATHETERIZATION (11/09/2022 1:05 PM EDT) Anatomical Region Laterality Modality Other Narrative 11/09/2022 2:01 PM EDT ?[facility] ? Cardiac Catheterization/Intervention Report ? Patient Name: Kirstie, Purnima M. ? Procedure Date: 11/09/2022 ? A #: [id number] ? Primary Physician: Nitesh Escobedo ? Case #: [id number] ? File Name: [id number] ? Catheterization Order Number: [id number] ? [facility] ?Employment Case Manager [facility] ? Final Report [place], [place] ? Patient Name: ? Purnima M. Kirtsie ? ID#: ?[id number] ? : ?1955 ? Procedure Date: ? [...] as ASA Class III. The [facility] clinical frailty scale ?is 4: Vulnerable. [...] (Bezet) 457 ms MUSE SYSTEM Calculated P [place] 44 degrees MUSE SYSTEM Calculated R [place] 33 degrees MUSE SYSTEM Calculated T [place] 30 degrees MUSE SYSTEM INTERPRETATION Sinus rhythm Occasional Premature ventricular complexes Otherwise normal ECG When compared with ECG of 21-SEP-2016 12:26, Premature ventricular complexes are now Present SD interval has decreased Nonspecific T wave abnormality has replaced inverted T waves in Inferior leads I personally reviewed the tracing and edited the fellows interpretation Confirmed by fellow MD Anitha, Carissa ([id number]) on 11/09/2022 6:17:28 PM Confirmed by Elsa [...] MD) documented in this encounter Care Teams Tester Food Products Relationship Specialty Start Date End Date Deborah Quiroga, ENDODONTIC ASSISTANT PCP - General Family Medicine 03/24/16 02/04/23 documented as of this encounter
--- OUTSIDE RECORDS SUMMARY | 2024-03-07 14:36 | XMS_ITS | Encounter Summary ---
Author Organization [facility] Erika ló[place]yl[place] [address] Care Team Providers Care Manager Landscape Name Role Phone Deborah Quiroga APRN Primary Care Provider [phone] Encounter Details Date Type Department Care Team (Late st Contact Info) Description 06/05/2021 Interpretation Only [address] [address] Deborah Quiroga APRN [address] [address] Social History Tobacco Use Types Packs/Day Years [...] 11:30 AM EST Office [place] [address] Magdalena Peralta MD [facility] [place] [address] 03/01/2025 4:15 PM EDT Office Visit Dermatology at [place] [address] [facility] [place] [address] Marek Bonilla MD [address], [place] [address] documented as of this encounter Procedures Procedure Name Priority Date/Time Associated Diagnosis Comments MAMMO SCREENING CAD BILATERAL Routine 06/05/2021 11:42 AM EDT documented in this encounter Results * Mammo Screening Cad Bilateral (06/05/2021 11:42 AM EDT) PT CLASS O DH RAD ADMITDTTM DH RAD PT DH RAD INFO [id number]^EV ERETT^DEBORAH^E DH RAD EXAM DESC MADDSC^SCREEN MAMMO [...] who have questions please contact the health caregiver assisted living that requested your imaging first. ? Narrative [...] patients who have questions please contactthe health caregiver assisted living that requested your imaging first. Deborah Quiroga APRN IMG MAMMO ORDERABLE S documented in this encounter Visit Diagnoses Not on filedocumented in this encounter Care Teams Manager Landscape Relationship Specialty Start Date End Date Deborah Quiroga APRN PCP - General Family Medicine 03/24/16 02/04/23 documented as of this encounter
--- OUTSIDE RECORDS SUMMARY | 2024-03-07 14:36 | XMS_ITS | Encounter Summary ---
Author Organization [facility] [place] [address] Care Team Providers Care Equipment Detailer Name Role Phone Deborah Quiroga APRN Primary Care Provider [phone] Reason for Referral * Consultation (Routine) - Closed Specialty Diagnoses / Procedures Referred By Crispin maxwell Referred To Contact Neurology Diagnoses Polyneuropathy Deborah Quiroga APRN [address] [place] [address] [facility] [address] [place] [phone] Referral ID Status Reason Start Date Expiration Date V isits Requested Visits Authorized [id number] Closed Consult, Test & Treat 10/29/2022 10/29/2023 1 1 Encounter Details Date Type Department Care Team (Latest Contact Info) Description 10/29/2022 Transcribe Orders eDH Incoming Referrals [phone] Deborah Quiroga APRN [address] [place] [address] Polyneuropathy (Primary Dx) Social History [...] 11:30 AM EST [place] [address] Magdalena Peralta MD [facility] [place] [address] 03/01/2025 4:15 PM EDT Office Visit Dermatology at [place] [address] [place] [address] Marek Bonilla MD [address] [place] [address] Scheduled Referrals Name Type Priority Associated Diagnoses Orde r Schedule Referral to Neurology Outpatient Referral Routine Polyneuropathy Ordered: 10/29/2022 documented as of this encounter Visit Diagnoses Diagnosis Polyneuropathy- Primary Unspecified hereditary and idiopathic peripheral neuropathy documented in this encounter Care Teams Equipment Detailer Relationship Specialty Start Date End Date Deborah Quiroga APRN PCP - General Family Medicine 03/24/16 02/04/23 documented as of this encounter
--- OUTSIDE RECORDS SUMMARY | 2024-03-07 14:36 | XMS_ITS | Encounter Summary ---
Author Organization [facility] [place] [address] Care Team Providers Care Line Maintainer Section Name Role Phone Deborah Quiroga APRN Primary Care Provider [phone] Encounter Details Date Type Department Care Team (Late st Contact Info) Description 06/08/2022 Ancillary Procedure [place] [phone] Deborah Quiroga DRILLING ENGINEERING MANAGER [address] [facility] [address] [place], [place] [address] Social History Tobacco Use Types Packs/Day Years [...] 11:30 AM EST Office Visit [place] [phone] Magdalena Peralta MD [facility] [address] 03/01/2025 4:15 PM EDT Office Visit Dermatology at [address] [place] [phone] Marek Bonilla MD [address], [place] [address] documented as of this encounter Procedures Procedure Name Priority Date/Time Associated Diagnosis Comments FILM LIBRARY STORAGE ONLY DX SPINE Routine 06/08/2022 12:00 AM EST documented in this encounter Results * Film Library- Storage Only DX Spine (06/08/2022 12:00 AM EST) Narrative [facility] - 06/18/2022 10:57 AM EST This exam is auto-finalizing. It's purpose is for storage only. Deborah Quiroga APRN IMGerman FILM LIBRARY OR DERABLES Performing Organization Address City/State/[facility] Co de Phone Number [place], [place] documented in this encounter Visit Diagnoses Not on filedocumented in this encounter Care Teams Line Maintainer Section Relationship Specialty Start Date End Date Deborah Quiroga APRN PCP - General Family Medicine 03/24/16 02/04/23 documented as of this encounter
--- OUTSIDE RECORDS SUMMARY | 2024-03-07 14:37 | XMS_ITS | Encounter Summary ---
Author Organization [facility] Address [facility] [place] [address] Care Team Providers Care Revenue Cycle Administrator Name Role Phone Ashley Quirogazac Shields APRN Primary Care Provider [phone] Encounter Details Date Type Department Care Team (Late st Contact Info) Description 10/20/2016 11:20 AM EDT Office Visit [place] [phone] Alirio Esparza MD [facility] DR [place] [address] S/P AVR Social History Tobacco Use Types [...] all of her postoperative tests done at [facility]. Her echo shows a well-seated valve. Her EF, for some reason, was read as in the 45% to 50% range. She had a normal EF to start. I think that will need to be repeated at [facility]. She has no perivalve leak. Her [...] should continue to see Dr. Burrell, her litigation examiner at [facility]. cc: Dr. Burrell documented in this encounter Plan of Treatment Upcoming Encounters Date Type Department Care Team (Late st Contact Info) Description 06/05/2024 11:30 AM EST Office [place] [address] Magdalena Peralta MD [facility] [place] [address] 03/01/2025 4:15 PM EDT Office Visit Dermatology at [address] [place] [address] Marek Bonilla MD [address], TODD [place] [address] documented as of this encounter Visit Diagnoses Diagnosis S/P AVR Heart valve replaced by other means documented in this encounter Care Teams Revenue Cycle Administrator Relationship Specialty Start Date End Date Deborah Quiroga APRN PCP - General Family Medicine 03/24/16 02/04/23 documented as of this encounter
--- OUTSIDE RECORDS SUMMARY | 2024-03-07 14:37 | XMS_ITS | Encounter Summary ---
Author Organization [facility] Address [facility] [place] [address] Care Team Providers Care Cast Iron Dipper Name Role Phone Ashley Quirogan Sylvia ANURAG Primary Care Provider [phone] Reason for Referral * Consultation (Routine) - Specialty Diagnoses / Procedures Referred By Contact Referred To Contact Cardiac Rehabilitation Diagnoses S/P AVR Alirio Esparza MD [facility] [place] [address] Cardiac Rehab, [address] [place] [address] Referral ID Status Reason Start Date Expiration Date V isits Requested Visits Authorized [id number] Consult, Test & Treat 09/25/2016 03/24/2017 36 36 Reason for Visit * Auth/Cert Specialty Diagnoses / Procedures Referred By Crispin maxwell Referred To Contact Diagnoses Aortic stenosis Procedures PRO REPLACE AORT VALV, PROSTH VALV @REPLACE AORTIC VALVE, OPEN, W\CPB, W\PROSTHETIC VALVE (WRVU 41.32) Referral ID Status Reason Start Date Expiration Date Visits Re quested Visits Authorized [id number] 1 1 Encounter Details Date Type Department Care Team (Latest Contact Info) Description 09/21/2016 6:08 AM EST - 09/25/2016 4:33 PM EST Hospital Encounter Intermediate [place] [id number] Alirio Esparza MD [facility] [place] [address] Aortic valve stenosis, unspecified etiology; S/P AVR [...] Patient Age: 61 y.o. Birthdate: 1955 Language: Dominican Race: White Ethnicity: Not nor Admit Date: 09/21/2016 Discharge Date: 09/25/2016 Attending Physician: Alirio Esparza MD Follow-up Recommendations for Providers: Please continue routine management of cardiovascular risk factors including blood pressure, lipids,glucose, etc. Please note any changes to medications. Patient to follow-up with PCP, Deborah Quiroga APRN, in 1-2 weeks. Patient to follow-up with [facility], Dr. Antelmo Burrell, in two weeks. Patient to follow-up with Cardiac Surgery, Dr. Alirio Esparza, to be scheduled for before 10/19/2016, with CXR, EKG, and Echo. Inpatient Provider Contact Information: [facility] Section of Cardiac Surgery [facility] [place] [address] FAX [phone] Discharge Diagnoses (Hospital Problems) Primary Diagnoses: Secondary [...] at [facility] MAIN OR ??? Pro aortoplas for supravalv sten N/A 09/21/2016 @AORTOPLASTY FOR SUPRAVALVULAR STENOSIS (WRVU 29.33) performed by Alirio Esparza MD at [facility] MAIN OR Prior To Admission [...] Hospital Course: Purnima Thacker was admitted to [facility] on 09/21/2016 via the Same Day [...] Alirio Esparza and/or the Cardiac Surgery Physician Funeral Home Associate Team may be reached at . Antibiotic prophylaxis: You will need to take antibiotics prior to many invasive tests and treatments, such as dental cleaning, which should be done every 6 months. Your primary care physician or your dentist can prescribe this medication. Please refer to the card with the [employer] Guidelines for more information. You have been provided with 3 copies of this card. Keep one for your self. Give one to your primary care physician and one to your dentist. Please refer to the [employer] Guidelines for more information. Good [...] Dr. Alirio Jones. You may use a [place] Track or treadmill but avoid any pulling [...] friends, go to a movie, go to sabianism, etc. Heavy activities: No hunting, skiing, jogging, [...] should resume a low fat, low cholesterol, [employer] Diet. Driving: No driving until [...] the outpatient Phase 2 Cardiac Rehabilitation at [facility]. The patient agrees to a referral to this program. The referral will be sent at discharge and the patient should be contacted by the program within 1- 2 weeks from discharge. Future Appointments and Orders Future Appointments Provider Department Dept Phone 11/20/2016 11:30 AM Markel Borjas MD [facility] [phone] Future Orders Complete By Expires Echocardiogram Transthoracic([facility]) [SOH357 Custom] 10/18/2016 (Approximate) 09/18/2017 Process Instructions: If the Echocardiogram is to be PERFORMED in a location other than [place]--STOP and order [id number], Echocardiogram South/External. Scheduling Instructions: Questions: Is a Bubble Study requested?: No Does the patient have Congenital Heart Disease?: No Does patient require sedation?: None GA rationale: Should this service be billed to the research sponsor?: EKG 12 Lead [EKG1 Custom] 10/18/2016 (Approximate) 09/25/2017 Process Instructions: Scheduling Instructions: Questions: Which location will this be performed?: [place] Is a rhythm strip needed?: No If EKG Reason is Pre-op Evaluation, indicate diagnosis for surgery.: Should this service be billed to the research sponsor?: XR Chest PA & Lateral (Generic) [[id number] Custom] 10/18/2016 (Approximate) 09/25/2017 Process Instructions: Scheduling Instructions: Questions: Where will study be performed?: [facility]- Radiology Portable exam?: No Reason for exam and clinical history: s/p AVReplacement, patch annuloplasty 1 month f/u Other pertinent information: Stat read required?: Date of injury if applicable: Requested Time: Referral to Cardiac Rehab [WTS188 Custom] As directed Process Instructions: If no progress note charted, please enter Clinical details in comments. Scheduling Instructions: Questions: My question or request is: s/p AVR. Cardiac rehab at [facility] Referral to Home Health - at DISCHARGE [PFX3387 CPT(R)] As directed Process Instructions: Scheduling Instructions: Comments: DOCUMENTATION FOR VNA SERVICES (INCLUDING THOSE PATIENTS WITH MEDICARE COVERAGE REQUIRING HOME VNA SERVICES AND/OR HOSPICE SERVICES) PATIENT'S LOCATION: Purnima Thacker [address] [place] [phone] (home) No relevant phone numbers on file. Timber Treatment Plant Operator's Name: self In discussion with the attending physician, it is certified that this patient is under their care and that they, or a Nurse Practitioner, or Physician Funeral Home Associate who is working directly with them, [...] for services as follows: HOME HEALTH AGENCY: [facility]. PHONE: [phone] FAX: [phone] RN orders: Cardiopulmonary assessment, incisional assessment, assess [...] issues please call the Cardiac SurgeryOffice at [phone] FOR MEDICARE ONLY: In discussion with the [...] noted. Questions: Agency name and contact information: [facility] Patient location post discharge: home What services are requested: Registered Nurse Physical Therapy Occupational Therapy Start date: Responsible MD post discharge contact info: Arrangements for VNA/home care: As above. VN RN OR PCP TO PLEASE REMOVE CHEST TUBE SUTURES ON OR AFTER 09/30/16 Signed: Crispin Aranda PA-C 09/25/2016 [facility] Section of Cardiac Surgery [facility] [place] [address] FAX [phone] Date: 09/25/2016 CC: ANURAG Alford Caryn E, APRN [address] [place] [address] documented in this encounter Discharge Instructions * [...] Alirio Esparza and/or the Cardiac Surgery Physician Funeral Home Associate Team may be reached at . Antibiotic prophylaxis: You will need to take antibiotics prior to many invasive tests and treatments, such as dental cleaning, which should be done every 6 months. Your primary care physician or your dentist can prescribe this medication. Please refer to the card with the [employer] Guidelines for more information. You have been provided with 3 copies of this card. Keep one for your self. Give one to your primary care physician and one to your dentist. Please refer to the [employer] Guidelines for more information. Good [...] Dr. Alirio Jones. You may use a [place] Track or treadmill but avoid any pulling [...] friends, go to a movie, go to sabianism, etc. Heavy activities: No hunting, skiing, jogging, [...] should resume a low fat, low cholesterol, [employer] Diet. Driving: No driving until [...] the outpatient Phase 2 Cardiac Rehabilitation at [facility]. The patient agrees to a [...] as of this encounter Progress Notes * Cripsin Aranda PA - 09/24/2016 4:04 PM EST Cardiac Surgery Progress Note: ID: [id number] S/p AVR, patch aortoplasty POD#2. PMH of [...] Gas) No results found for: PHART, PO2ART, [id number] Assessment/Plan: TPW out this am. (+) BM. [...] Signed: Crispin Aranda PA-C 09/24/2016 Team pager: [phone]; [phone] after 5pm [facility] Section of Cardiac Surgery * Leonor Henson, WORLDWIDE CHIEF CREATIVE OFFICER - 09/23/2016 10:48 AM EST Cardiac Surgery Progress Note: ID: [id number] s/p AVR, patch aortoplasty POD#2. PMH of Neutropenia, HLD, HTN, Depression, obesity,. EF- 60% 24 Hour Events: transferred from [facility] to [facility], doing well, no overnight [...] Gas) No results found for: PHART, PO2ART, [id number] Assessment/Plan: s/p AVR, patch aortoplasty POD#2. PMH of Neutropenia, HLD, HTN, Depression, obesity, . Transferred from [facility] yesterday and doing well. Pathway. Will [...] Surgeon on rounds. Signed: Leonor Henson APRN [facility] Section of Cardiac Surgery Date: 09/23/2016 * Nico Palacios PA - 09/22/2016 9:56 AM EST Cardiac Surgery Progress Note: ID: [id number] s/p AVR, patch aortoplasty POD#1. PMH of [...] NT, ND, soft. Ext: Moves all extremities. Herricks, well perfused. Incisions: C/D/I Tubes/Lines/Drains: PIV, leanna, [...] Attending Surgeon on rounds. Signed: EKATERINA KIM [facility] Section of Cardiac Surgery Date: 09/22/2016 [...] Notes * Plan of Care - Joselyn Ccaeres RN - 09/25/2016 1:37 PM EST Problem: [...] health, home with outpatient services Lalitha Cohen [facility] Pager: [phone] Inpatient Physical Therapy Patient status, treatment interventions, and goals discussed with student. I am in agreement with all details and associated flowsheet rows as documented and was present for all aspects of the patient treatment session. Nery Jaramillo, PAPER REELER Pager [phone] Problem: Acute Rehab Services Goal & Intervention Plan Goal: Bed Mobility Goal Stand Alone Therapy Goal Outcome: Ongoing (Interventions Implemented as Appropriate) 09/22/16 16109/25/16 0947 Bed Mobility Goal Bed Mobility Goal, Time to Achieve 4 days -- Bed Mobility Goal, Activity Type scoot/bridge;supine to sit/sit to supine -- Bed Mobility Goal, [place] Level independent -- Bed Mobility Goal, Additional [...] Achieve 4 days -- Gait Training Goal, [place] Level independent -- Gait Training Goal, Distance [...] home with home health Lalitha BALTAZAR Pager: [phone] Inpatient Physical Therapy Patient status, treatment interventions, and goals discussed with student. I am in agreement with all details and associated flowsheet rows as documented and was present for all aspects of the patient treatment session. Nery Jaramillo PTA Pager [phone] Problem: Acute Rehab Services Goal & Intervention Plan Goal: Bed Mobility Goal Stand Alone Therapy Goal Outcome: Ongoing (Interventions Implemented as Appropriate) 09/22/16 1611 09/23/16 1412 Bed Mobility Goal Bed Mobility Goal, Time to Achieve 4 days -- Bed Mobility Goal, Activity Type scoot/bridge;supine to sit/sit to supine -- Bed Mobility Goal, [place] Level independent -- Bed Mobility Goal, Additional [...] Achieve 4 days -- Gait Training Goal, [place] Level independent -- Gait Training Goal, Distance [...] days -- Transfer Training Goal, Activity Type iji-an-yitss/sinmz-hu-slt;aby-tj-hyaud/thvbz-km-hzg -- Transfer Train Goal, [place] Level independent -- Transfer Training Goal, Additional Goal abides sternal precautions -- Transfer Training Goal, Outcome -- goal met * Consult Note - Jana Crenshaw RN - 09/23/2016 9:41 AM EST [facility] CARDIAC REHABILITATION Purnima Thacker was seen today regarding participation in the outpatient Phase 2 Cardiac Rehabilitation at [facility]. The patient agrees to a referral to this program. The referral will be sent at discharge and the patient should be contacted by the Program within 1- 2 weeks from discharge. * Plan of Care - Marcie Frazier RN - 09/23/2016 3:51 AM EST Problem: Patient Care Overview Goal: Plan of Care Review Outcome: Ongoing (Interventions Implemented as Appropriate) 09/23/16 8927 Coping/Psychosocial Plan Of Care Reviewed With patient [...] Another Service: (cardiac rehab) NICOLE HERNANDEZ, PT Pager:[phone] Inpatient Physical Therapy Problem: Acute Rehab Services Goal & Intervention Plan Goal: Bed Mobility Goal Stand Alone Therapy Goal Outcome: Ongoing (Interventions Implemented as Appropriate) 09/22/16 1611 Bed Mobility Goal Bed Mobility Goal, Time to Achieve 4 days Bed Mobility Goal, Activity Type scoot/bridge;supine to sit/sit to supine Bed Mobility Goal, [place] Level independent Bed Mobility Goal, Additional Goal able to abide sternal precautions during transfers Goal: Gait Training Goal Stand Alone Therapy Goal Outcome: Ongoing (Interventions Implemented as Appropriate) 09/22/16 1611 Gait Training Goal Gait Training Goal, Date Established 09/22/16 Gait Training Goal, Time to Achieve 4 days Gait Training Goal, [place] Level independent Gait Training Goal, Distance to Achieve ascend and descends 2 steps independently Goal: Goal Transfer Training Stand Alone Therapy Goal Outcome: Ongoing (Interventions Implemented as Appropriate) 09/22/16 1611 Goal Transfer Training Transfer Training Goal, Time to Achieve 4 days Transfer Training Goal, Activity Type arz-os-heafk/irynr-em-qnl;frx-dm-zeenb/xhudv-jj-jid Transfer Train Goal, [place] Level independent Transfer Training Goal, Additional Goal [...] of completing AD's at home, chooses her hjnfil-tg-joa, Martha Thacker (home) for her DPOAH, 2nd choice in friend[facility] [place] Current Coping/Education/Information Needs: patient sitting up in recliner, awake, alert, calmly answers questions appropriately, demonstrates understanding of her current health situation. [facility] [place] [facility]. Current Functional Ability: 1 [...] close by, Rashad & [place], and her ntgfqd-vx-tfk Martha Thacker who she has chosen to be her DPOA. Also has a friend Nitesh Leroy who lives in [place], [place], also her DPOAH choice. Behavioral Health History: none on file in [facility] Substance Use/Abuse: none on file in [facility] Other Pertinent/Service Specific Information: none Health/Prescription Coverage: Primary Insurance: [employer] Secondary Insurance: none Prescription Coverage: yes, per patient no issues Preferred Pharmacy: ?? Other: none Primary Care Provider: Deborah Quiroga APRN [phone] Patient/Caregiver Goals of Treatment: per medical team recommendations at discharge for CT surgery Potential Needs for Transition of Care: Rehab/SNF: TBD Home Health: TBD DME: no Dialysis: no Community Resources: non3 Transportation: ride home with a friend Other: none Anticipated Barriers to Discharge/Special Considerations: none anticipated at this time Plan: patient will need VNA services at discharge. The patient/patient support representative has been provided a list of Home Health Agencies/DME vendors which servetheir preferred geographic area. A letter describing our affiliations was reviewed with them and they were educated about their right to choose where referrals are placed. Patient requests referral to: [facility]. PHONE: [phone] FAX: [phone] Expected date of discharge: Fri/Sat? CM called VNA to confirm referral, talked with VALDO Bunn/intake who stated she was familiar w/patient & would monitor her progress through curaspan. Referral routed to the Computer Typesetter for matching with agency/vendor and to provide any required information. A member of the Care Management team will continue to monitor progress, follow for continuity of care and assist with transition of care planning. Amanda Moreno RN Pager: [phone] * Op Note - Alirio Esparza MD - 09/21/2016 12:53 PM EST 09/23/2016 Purnima Thacker 1955 [id number] Preoperative Diagnosis: Symptomatic aortic stenosis Postoperative Diagnosis: Symptomatic aortic stenosis Procedure: Aortic valve replacement: Bovine Pericardial 25 mm Surgeon: Alirio Esparza M.D. Funeral Home Associate: Philip BALL Anesthesia: General endotracheal anesthesia [...] Operative Note Patient Name: Purnima Thacker : [id number] MR#: [id number] Case Date: 09/21/2016 Surgeon: Surgeon(s) and Role: * Alirio Esparza MD - Primary * Nico Palacios PA - Physician Funeral Home Associate Preoperative diagnosis: Postoperative diagnosis: Procedure(s) (LRB): [...] 11:30 AM EST Office [place] [address] Magdalena Peralta MD [facility] [place] [address] 03/01/2025 4:15 PM EDT Office Visit Dermatology at [address] [place] [address] Marek Bonilla MD [address] [place] [address], [place] [address] Scheduled Orders Name Type Priority Associated Diagnoses [...] IMPLANTABLE DEVICES SCAN 09/26/2016 12:00 AM EST FRAMING MILL OPERATOR HELPER SCAN 09/26/2016 12:00 AM EST POTASSIUM Routine 09/25/2016 4:32 AM EST HEMOGRAM Routine 09/24/2016 9:56 AM EST DIFFERENTIAL, AUTOMATED Routine 09/24/2016 9:56 AM EST CBC (WITH DIFF) Routine 09/24/2016 9:56 AM EST BASIC METABOLIC PANEL Routine 09/24/2016 9:56 AM EST XR CHEST [...] Routine 09/21/2016 4:49 PM EST BLOOD GAS ARTERIAL POC Routine 7 4:42 PM EST POCT GLUCOSE Routine 09/21/2016 [...] 09/21/2016 12: 20 PM EST BLOOD GAS ARTERIAL POC Routine 7 12:20 PM EST BLOOD GAS ARTERIAL POC Routine 7 10:54 AM EST HEMOGRAM STAT 09/21/2016 10:50 AM EST APTT STAT 09/21/2016 10:50 AM EST THROMBIN TIME STAT 09/21/2016 10:50 AM EST PROTHROMBIN TIME STAT 09/21/2016 10:5 0 AM EST FIBRINOGEN STAT 09/21/2016 10:50 AM EST PREPARE PLATELETS, APHERESIS STAT 09/21/2016 10:30 AM EST BLOOD GAS ARTERIAL POC Routine 7 10:05 AM EST BLOOD GAS ARTERIAL POC Routine 7 9:44 AM EST FIBRINOGEN STAT 09/21/2016 9:42 AM EST PLATELET COUNT STAT 09/21/2016 9:42 AM EST HEMOGLOBIN STAT 09/21/2016 9:42 AM EST HEMATOCRIT STAT 09/21/2016 9:42 AM EST BLOOD GAS ARTERIAL POC Routine 7 9:10 AM EST SURGICAL PATHOLOGY REPORT Routine 09/21/2016 9:09 AM EST SPECIMEN TO PATHOLOGY Routine 09/21/2016 9:09 AM EST BLOOD GAS ARTERIAL POC Routine 7 8:50 AM EST BLOOD GAS ARTERIAL POC Routine 7 8:18 AM EST @AORTOPLASTY FOR SUPRAVALVULAR STENOSIS [...] SCAN EXT O RDR/RSLT * SCAN DOC: FRAMING MILL OPERATOR HELPER (09/26/2016 12:00 AM EST) Anatomical Region Laterality Modality Other Narrative 09/26/2016 12:00 AM EST Ordered by an unspecified provider. Scanning Provider MEDIA MGR SCAN EXT O RDR/RSLT * Potassium (09/25/2016 4:32 AM EST) [facility] Potassium 4.4 3.5 - 5.0 mmol/L [facility] [...] CHEMISTRY ORDERABLE S [facility] [place] [address] * (ABNORMAL) Differential, Automated (09/24/2016 9:56 AM EST) Pathologist [facility] Neutrophil % 76.8 % [facility] Neutrophil Absolute 7.79(H) 1.70 - 6.10 x10(3)/mc L [facility] Lymph % 11.1 % [facility] Lymphocytes Abs 1.1 0.9 - 3.2 x10(3)/mc L [facility] Monocyte % 8.5 % [facility] Monocyte Abs 0.9 0.3 - 0.9 x10(3)/mc L [facility] Eos % 0.5 % [facility] Eosinophils Abs 0.0 0.0 - 0.4 x10(3)/[facility] Basophil % 0.2 % [facility] Baso Absolute 0.0 0.0 - 0.1 x10(3)/[facility] Immature Gran % 2.90 % [facility] Comment: Immature granulocytes(IG's)percentage and absolute count will include metamyelocytes, myelocytes, and promyelocytes. Blood smears from CBCs yielding IG's will be scanned manually for concordance. If this scan disagrees with the automated IG or if promyelocytes are noted, a manual differential will be performed. Immature Gran Absolute 0.29(H) 0.00 - 0.04 x10(3)/[facility] Blood specimen (specimen) 09/24/2016 9:56 AM EST 09/24/2016 10:04 AM EST Narrative Resulting Agency Comment Spec In Lab Alirio Esparza MD HEMATOLOGY ORDERABL ES [facility] [place] [address] * (ABNORMAL) Hemogram (09/24/2016 9:56 AM EST) White Blood Cell 10.1(H) 4.0 - 9.5 x10(3)/[facility] Red Blood Cell 2.87(L) 4.00 - 5.21 x10(6)/ L [facility] Hemoglobin 9.4(L) 11.7 - 15.5 gm/dL [facility] Hematocrit 28.3(L) 35.7 - 45.8 % [facility] Mean Cell Volume 98.6(H) 82.6 - 94.4 fL [facility] Mean Cell Hemoglobin 32.8(H) 27.1 - 32.0 pg [facility] Mean Cell Hemoglobin Concentration 33.2 31.7 - 35.0 gm/dL [facility] Platelet 141(L) 145 - 357 x10(3)/mc L [facility] RDW Standard Deviation 45.0 37.0 - 46.0 fL [facility] RDW coefficient of variation 12.6 11.5 - 14.1 % [facility] Mean Platelet Volume 9.4 7.6 - 12.9 fL [facility] NRBC% auto 1.1 % [facility] NRBC Absolute 0.110(H) 0.000 - 0.000 x10(3)/mc L [facility] Blood specimen (specimen) 09/24/2016 9:56 AM EST 09/24/2016 10:04 AM EST Narrative Resulting Agency Comment Spec In Lab Alirio Esparza MD HEMATOLOGY ORDERABL ES [facility] [place] [address] * (ABNORMAL) Basic Metabolic Panel (non-fasting) (09/24/2016 9:56 AM EST) Glucose 111 65 - 199 mg/dL [facility] Comment:Diabetes: >=200 mg/d L plus symptoms Blood Urea Nitrogen 23(H) 8 - 18 mg/dL [facility] Comment:result rechecked-ART Creatinine 0.89 0.70 - 1.20 mg/dL [facility] Comment: Please note that the pediatric reference intervals supplied above were not validated at [facility]. Results from pediatric patients should be interpreted in conjunction to the patient's age, height and muscle mass. Sodium 138 135 - 145 mmol/L [facility] Potassium 4.2 3.5 - 5.0 mmol/L [facility] Comment: Please note: ??Patients with WBC >100,000 may have falsely elevated Potassium levels. ??For accurate Potassium quantification in these patients send serum separator tube (gold top) for subsequent determinations. ??Contact the Clinical Chemistry Laboratory if there are any questions. Chloride 98 98 - 107 mmol/L [facility] Carbon Dioxide 26 22 - 31 mmol/L [facility] Anion Gap 14 5 - 15 mmol/L [facility] Calcium 9.1 8.5 - 10.5 mg/dL [facility] Est Glomerular Filtration Rate >60 >=60 [facility] [...] the following links into your internet browser. [email or web address] Blood specimen (specimen) 09/24/2016 9:56 AM EST 09/24/2016 10:04 AM EST Narrative Resulting Agency Comment Spec In Lab Alirio Esparza MD CHEMISTRY ORDERABLE S [facility] [place] [address] * XR Chest PA & Lateral (Generic) [...] EST) Potassium 4.5 3.5 - 5.0 mmol/L [facility] [...] Narrative Resulting Agency Comment Spec In Lab Authorizing Provider Result Slade Esparza MD CHEMISTRY ORDERABLE S [facility] [place] [address] * POCT Glucose (09/22/2016 8:17 AM EST) Glucose, POC 131 65 - 199 mg/dL [facility] Comment: Supplemental ranges: <140 mg/dL before meals <180 mg/dL all other times of the day Blood specimen (specimen) 09/22/2016 8:17 AM EST 09/22/2016 8:17 AM EST Narrative Authorizing Provider Result Slade Esparza MD POINT OF CARE TEST ORDERABLES [facility] [place] [address] * POCT Glucose (09/22/2016 4:01 AM EST) [facility] Glucose, POC 135 65 - 199 mg/dL [facility] Comment: Supplemental ranges: <140 mg/dL before meals <180 mg/dL all other times of the day Blood specimen (specimen) 09/22/2016 4:01 AM EST 09/22/2016 4:01 AM EST Alirio Esparza MD POINT OF CARE TEST ORDERABLES Performing Organization Address [facility] Co de Phone Number [facility] [place] [address] * Scan, Peripheral Blood (09/22/2016 4:00 AM EST) [facility] Plat estimate Normal [facility] RBC Morphology Abnormal [facility] Macrocyte 1-5 /HPF [facility] Plat, Giant Less than 1 /HPF [facility] Blood specimen (specimen) 09/22/2016 4:00 AM EST 09/22/2016 4:34 AM EST Narrative Resulting Agency Comment Spec In Lab Alirio Esparza MD HEMATOLOGY ORDERABL ES Performing Organization Address [facility] Co de Phone Number [facility] [place] [address] * Electrolytes panel (09/22/2016 4:00 AM EST) [facility] Sodium 145 135 - 145 mmol/L [facility] Potassium 4.4 3.5 - 5.0 mmol/L [facility] Comment: Please note: ??Patients with WBC >100,000 may have falsely elevated Potassium levels. ??For accurate Potassium quantification in these patients send serum separator tube (gold top) for subsequent determinations. ??Contact the Clinical Chemistry Laboratory if there are any questions. Chloride 107 98 - 107 mmol/L [facility] Carbon Dioxide 24 22 - 31 mmol/L [facility] Anion Gap 14 5 - 15 mmol/L [facility] Blood specimen (specimen) Venous Draw / Unknown 09/22/2016 4:00 AM EST 09/22/2016 4:34 AM EST Narrative Resulting Agency Comment Spec In Lab Alirio Esparza MD CHEMISTRY ORDERABLE S [facility] [place] [address] * (ABNORMAL) Differential, Automated (09/22/2016 4:00 AM EST) Neutrophil % 70.9 % [facility] Neutrophil Absolute 5.33 1.70 - 6.10 x10(3)/mc L [facility] Lymph % 9.1 % [facility] Lymphocytes Abs 0.7(L) 0.9 - 3.2 x10(3)/ L [facility] Monocyte % 18.0 % [facility] Monocyte Abs 1.4(H) 0.3 - 0.9 x10(3)/ L [facility] Eos % 0.0 % [facility] Eosinophils Abs 0.0 0.0 - 0.4 x10(3)/[facility] Basophil % 0.1 % [facility] Baso Absolute 0.0 0.0 - 0.1 x10(3)/ L [facility] Immature Gran % 1.90 % [facility] Comment: Immature granulocytes(IG's)percentage and absolute count will include metamyelocytes, myelocytes, and promyelocytes. Blood smears from CBCs yielding IG's will be scanned manually for concordance. If this scan disagrees with the automated IG or if promyelocytes are noted, a manual differential will be performed. Immature Gran Absolute 0.14(H) 0.00 - 0.04 x10(3)/ L [facility] Blood specimen (specimen) 09/22/2016 4:00 AM EST 09/22/2016 4:34 AM EST Narrative Resulting Agency Comment Spec In Lab Alirio Esparza MD HEMATOLOGY ORDERABL ES [facility] [place] [address] * (ABNORMAL) Hemogram (09/22/2016 4:00 AM EST) White Blood Cell 7.5 4.0 - 9.5 x10(3)/mc L [facility] Red Blood Cell 2.93(L) 4.00 - 5.21 x10(6)/mc L [facility] Hemoglobin 9.2(L) 11.7 - 15.5 gm/dL [facility] Hematocrit 28.0(L) 35.7 - 45.8 % [facility] Mean Cell Volume 95.6(H) 82.6 - 94.4 fL [facility] Mean Cell Hemoglobin 31.4 27.1 - 32.0 pg [facility] Mean Cell Hemoglobin Concentration 32.9 31.7 - 35.0 gm/dL [facility] Platelet 161 145 - 357 x10(3)/mc L [facility] RDW Standard Deviation 44.0 37.0 - 46.0 fL [facility] RDW coefficient of variation 12.6 11.5 - 14.1 % [facility] Mean Platelet Volume 9.3 7.6 - 12.9 fL [facility] NRBC% auto 0.3 % [facility] NRBC Absolute 0.020(H) 0.000 - 0.000 x10(3)/mc L [facility] Blood specimen (specimen) 09/22/2016 4:00 AM EST 09/22/2016 4:34 AM EST Narrative Resulting Agency Comment Spec In Lab Alirio Esparza MD HEMATOLOGY ORDERABL ES [facility] [place] [address] * (ABNORMAL) Cardiac Enzymes (09/22/2016 4:00 AM EST) [facility] Troponin-T 0.13(H) <=0.03 ng/mL [facility] Comment: 0.03 ng/mL: Represents the 99th percentile upper reference limit for normals. >0.03 ng/mL: Elevated cardiac troponin T level indicative of myocardial damage. Diagnosis of acute, evolving or recent IN requires a typical rise and gradual fall [...] consensus document of the Joint Society of Cardiology/[employer] Committee for the redefinition of myocardial infarction. ??Journal of the [place] 2000; 36: 959-969] Creatine Kinase 338(H) 0 - 160 unit/L [facility] Blood specimen (specimen) 09/22/2016 4:00 AM EST 09/22/2016 4:34 AM EST Narrative Resulting Agency Comment Spec In Lab Alirio Esparza MD CHEMISTRY ORDERABLE S Performing Organization Address City/State/[facility] Co de Phone Number [facility] [place] [address] * (ABNORMAL) Glucose, fasting (09/22/2016 4:00 AM EST) Pathologist [facility] Glucose Fasting 137(H) 65 - 99 mg/dL [facility] Comment: ?Fasting* Glucose Interpretive Criteria [...] of Diabetes Mellitus, Position Statement from the [place] [employer]. ??Diabetes Care, Volume 33, Supplement 1, Aug 2009 Blood specimen (specimen) 09/22/2016 4:00 AM EST 09/22/2016 4:34 AM EST Narrative Resulting Agency Comment Spec In Lab Alirio Esparza MD CHEMISTRY ORDERABLE S Performing Organization Address [facility] Co de Phone Number [facility] [place] [address] * (ABNORMAL) Creatinine (09/22/2016 4:00 AM EST) Creatinine 0.69(L) 0.70 - 1.20 mg/dL [facility] Comment: Please note that the pediatric reference intervals supplied above were not validated at [facility]. Results from pediatric patients should be interpreted in conjunction to the patient's age, height and muscle mass. Est Glomerular Filtration Rate >60 >=60 [facility] [...] the following links into your internet browser. [email or web address] Blood specimen (specimen) 09/22/2016 4:00 AM EST 09/22/2016 4:34 AM EST Narrative Resulting Agency Comment Spec In Lab Alirio Esparza MD CHEMISTRY ORDERABLE S Performing Organization Address [facility] Co de Phone Number [facility] [place] [address] * BUN (09/22/2016 4:00 AM EST) Blood Urea Nitrogen 10 8 - 18 mg/dL [facility] Blood specimen (specimen) 09/22/2016 4:00 AM EST 09/22/2016 4:34 AM EST Narrative Resulting Agency Comment Spec In Lab Alirio Esparza MD CHEMISTRY ORDERABLE S Performing Organization Address City/[facility]/ZIP Co de Phone Number [facility] [place] [address] * POCT Glucose (09/21/2016 9:59 PM EST) Glucose, POC 146 65 - 199 mg/dL [facility] Comment: Supplemental ranges: <140 mg/dL before meals <180 mg/dL all other times of the day Blood specimen (specimen) 09/21/2016 9:59 PM EST 09/21/2016 9:59 PM EST Alirio Esparza MD POINT OF CARE TEST ORDERABLES Performing Organization Address [facility] Co de Phone Number [facility] [place] [address] * POCT Glucose (09/21/2016 7:26 PM EST) Glucose, POC 152 65 - 199 mg/dL [facility] Comment: Supplemental ranges: <140 mg/dL before meals <180 mg/dL all other times of the day Blood specimen (specimen) 09/21/2016 7:26 PM EST 09/21/2016 7:26 PM EST Alirio Esparza MD POINT OF CARE TEST ORDERABLES Performing Organization Address City/[facility]/ZIP Co de Phone Number [facility] [place] [address] * POCT Glucose (09/21/2016 6:00 PM EST) Glucose, POC 146 65 - 199 mg/dL [facility] Comment: Supplemental ranges: <140 mg/dL before meals <180 mg/dL all other times of the day Blood specimen (specimen) 09/21/2016 6:00 PM EST 09/21/2016 6:00 PM EST Alirio Esparza MD POINT OF CARE TEST ORDERABLES [facility] [place] [address] * (ABNORMAL) BLOOD GAS 2 ARTERIAL (09/21/2016 4:42 PM EST) pH, Arterial 7.35(L) 7.35 - 7.45 [facility] PCO2, Arterial 48(H) 35 - 45 mmHg [facility] PO2, Arterial 108(H) 85 - 104 mmHg [facility] Bicarbonate, Arterial 26.0 20.0 - 26.0 mmol/L [facility] Base Excess, Arterial 0.5 -3.0 - 3.0 mmol/L [facility] Hgb Blood Gas 10.4(L) 11.7 - 15.5 gm/dL [facility] Oxyhemoglobin, Arterial 96.2 94.0 - 97.0 % [facility] Carboxyhemoglob in, Arterial 0.0 % [facility] Comment: Nonsmokers: 0.5-1.5% COHB Smokers: Variable, but usually less than 10% Toxic: 20-30% COHB Lethal: Greater than 60% COHB Methemoglobin, Arterial 0.7 <=1.5 % [facility] Na Whole Blood 139 135 - 145 mmol/L [facility] K Whole Blood 4.2 3.5 - 5.0 mmol/L [facility] Comment: Please note: Patients with WBC >100,000 may have falsely elevated Potassium levels. Contact the Clinical Chemistry Laboratory if there are any questions. ICa Whole Blood 1.13(L) 1.15 - 1.33 mmol/L [facility] Comment: Note: ??Total bilirubin higher than 20 mg/dL may lead to falsely low ionized calcium. CL Whole Blood 106 98 - 107 mmol/L [facility] Gluc Whole Bld 147 65 - 199 mg/dL [facility] Comment:Diabetes: >=200 mg/d L plus symptoms. Lactate WB 1.2 0.5 - 2.2 mmol/L [facility] FIO2 Art 40 % [facility] PF Ratio Art 270 [facility] Blood specimen (specimen) 09/21/2016 4:42 PM EST 09/21/2016 4:42 PM EST Alirio Esparza MD POINT OF CARE TEST ORDERABLES Performing Organization Address [facility] Co de Phone Number [facility] [place] [address] * POCT Glucose (09/21/2016 4:07 PM EST) Glucose, POC 150 65 - 199 mg/dL [facility] Comment: Supplemental ranges: <140 mg/dL before meals <180 mg/dL all other times of the day Blood specimen (specimen) 09/21/2016 4:07 PM EST 09/21/2016 4:07 PM EST Alirio Esparza MD POINT OF CARE TEST ORDERABLES Performing Organization Address [facility] Co de Phone Number [facility] [place] [address] * (ABNORMAL) Hemoglobin (09/21/2016 4:05 PM EST) Hemoglobin 9.9(L) 11.7 - 15.5 gm/dL [facility] Blood specimen (specimen) 09/21/2016 4:05 PM EST 09/21/2016 4:20 PM EST Narrative Resulting Agency Comment Spec In Lab Alirio Esparza MD HEMATOLOGY ORDERABL ES Performing Organization Address City/[facility]/ZIP Co de Phone Number [facility] [place] [address] * Potassium (09/21/2016 4:05 PM EST) Potassium 4.6 3.5 - 5.0 mmol/L [facility] [...] MD CHEMISTRY ORDERABLE S Performing Organization Address [facility] Co de Phone Number [facility] [place] [address] * POCT Glucose (09/21/2016 2:52 PM EST) Glucose, POC 117 65 - 199 mg/dL [facility] Comment: Supplemental ranges: <140 mg/dL before meals <180 mg/dL all other times of the day Blood specimen (specimen) 09/21/2016 2:52 PM EST 09/21/2016 2:52 PM EST Alirio Esparza MD POINT OF CARE TEST ORDERABLES Performing Organization Address [facility]/ZIP Co de Phone Number [facility] [place] [address] * POCT Glucose (09/21/2016 1:51 PM EST) Glucose, POC 108 65 - 199 mg/dL [facility] Comment: Supplemental ranges: <140 mg/dL before meals <180 mg/dL all other times of the day Blood specimen (specimen) 09/21/2016 1:51 PM EST 09/21/2016 1:51 PM EST Alirio Esparza MD POINT OF CARE TEST ORDERABLES Performing Organization Address [facility]/ZIP Co de Phone Number [facility] [place] [address] * POCT Glucose (09/21/2016 12:54 PM EST) Glucose, POC 128 65 - 199 mg/dL [facility] Comment: Supplemental ranges: <140 mg/dL before meals <180 mg/dL all other times of the day Blood specimen (specimen) 09/21/2016 12:54 PM EST 09/21/2016 12:54 PM EST Alirio Esparza MD POINT OF CARE TEST ORDERABLES [facility] [place] [address] * EKG 12 Lead (09/21/2016 12:26 PM EST) Ventricular rate 87 BPM MUSE SYSTEM Atrial Rate 87 BPM MUSE SYSTEM P-R Interval 256 ms MUSE SYSTEM QRS Duration 90 ms MUSE SYSTEM Q-T Interval 406 ms MUSE SYSTEM QTC Calculated (Bezet) 488 ms MUSE SYSTEM Calculated P Leeper 24 degrees MUSE SYSTEM Calculated R Leeper 21 degrees MUSE SYSTEM Calculated T Leeper -5 degrees MUSE SYSTEM INTERPRETATION Sinus rhythm with 1st degree A-V block Nonspecific T wave abnormality Prolonged QT Abnormal ECG When compared with ECG of 19-MAY-2016 11:43, [place] interval has increased T wave inversion now [...] course of the esophagus and below the [id number]. There is a right IJ PA catheter [...] the course of theesophagus and below the [id number]. There is a right IJ PA catheter [...] GAS 2 ARTERIAL (09/21/2016 12:20 PM EST) pH, Arterial 7.41 7.35 - 7.45 [facility] PCO2, Arterial 42 35 - 45 mmHg [facility] PO2, Arterial 356(H) 85 - 104 mmHg [facility] Bicarbonate, Arterial 26.2(H) 20.0 - 26.0 mmol/L [facility] Base Excess, Arterial 1.6 -3.0 - 3.0 mmol/L [facility] Hgb Blood Gas 10.7(L) 11.7 - 15.5 gm/dL [facility] Oxyhemoglobin, Arterial 98.1(H) 94.0 - 97.0 % [facility] Carboxyhemoglob in, Arterial 0.3 % [facility] Comment: Nonsmokers: 0.5-1.5% COHB Smokers: Variable, but usually less than 10% Toxic: 20-30% COHB Lethal: Greater than 60% COHB Methemoglobin, Arterial 0.8 <=1.5 % [facility] Na Whole Blood 140 135 - 145 mmol/L [facility] K Whole Blood 3.8 3.5 - 5.0 mmol/L [facility] Comment: Please note: Patients with WBC >100,000 may have falsely elevated Potassium levels. Contact the Clinical Chemistry Laboratory if there are any questions. ICa Whole Blood 1.15(L) 1.15 - 1.33 mmol/L [facility] Comment: Note: ??Total bilirubin higher than 20 mg/dL may lead to falsely low ionized calcium. CL Whole Blood 106 98 - 107 mmol/L [facility] Gluc Whole Bld 135 65 - 199 mg/dL [facility] Comment:Diabetes: >=200 mg/d L plus symptoms. Lactate WB 2.2 0.5 - 2.2 mmol/L [facility] FIO2 Art 100 % [facility] PF Ratio Art 356 [facility] Blood specimen (specimen) 09/21/2016 12:20 PM EST 09/21/2016 12:20 PM EST Alirio Esparza MD POINT OF CARE TEST ORDERABLES [facility] [place] [address] * (ABNORMAL) BLOOD GAS 2 ARTERIAL (09/21/2016 10:54 AM EST) pH, Arterial 7.43 7.35 - 7.45 [facility] PCO2, Arterial 40 35 - 45 mmHg [facility] PO2, Arterial 297(H) 85 - 104 mmHg [facility] Bicarbonate, Arterial 26.0 20.0 - 26.0 mmol/L [facility] Base Excess, Arterial 1.6 -3.0 - 3.0 mmol/L [facility] Hgb Blood Gas 8.6(L) 11.7 - 15.5 gm/dL [facility] Oxyhemoglobin, Arterial 98.6(H) 94.0 - 97.0 % [facility] Carboxyhemoglob in, Arterial 0.5 % [facility] Comment: Nonsmokers: 0.5-1.5% COHB Smokers: Variable, but usually less than 10% Toxic: 20-30% COHB Lethal: Greater than 60% COHB Methemoglobin, Arterial 0.3 <=1.5 % [facility] Na Whole Blood 134(L) 135 - 145 mmol/L [facility] K Whole Blood 4.5 3.5 - 5.0 mmol/L [facility] Comment: Please note: Patients with WBC >100,000 may have falsely elevated Potassium levels. Contact the Clinical Chemistry Laboratory if there are any questions. ICa Whole Blood 1.16 1.15 - 1.33 mmol/L [facility] Comment: Note: ??Total bilirubin higher than 20 mg/dL may lead to falsely low ionized calcium. CL Whole Blood 104 98 - 107 mmol/L [facility] Gluc Whole Bld 240(H) 65 - 199 mg/dL [facility] Comment:Diabetes: >=200 mg/d L plus symptoms. Lactate WB 2.4(H) 0.5 - 2.2 mmol/L [facility] FIO2 Art 95 % [facility] Flow Art 0.7 LPM [facility] PF Ratio Art 313 [facility] Temp Art 36.7 Celsius [facility] Blood specimen (specimen) 09/21/2016 10:54 AM EST 09/21/2016 10:54 AM EST Alirio Esparza MD POINT OF CARE TEST ORDERABLES Performing Organization Address City/State/[facility] Co de Phone Number [facility] [place] [address] * Thrombin time (09/21/2016 10:50 AM EST) Thrombin Time 19 15 - 20 sec [facility] Comment: A prolongation in the [...] ORDERABLE S Performing Organization Address [facility] Co de Phone Number [facility] [place] [address] * Fibrinogen (09/21/2016 10:50 AM EST) Pathologist [facility] Fibrinogen 228 180 - 510 mg/dL [facility] Comment: Called by: JONNATHAN, Read back by: MICHELLE ALEJANDRE_, Date/Time:09/21/16 11:11. A fibrinogen level >100 mg/dL is adequate for hemostasis in most patients without underlying bleeding disorders. Blood specimen (specimen) 09/21/2016 10:50 AM EST 09/21/2016 10:56 AM EST Narrative Resulting Agency Comment Spec In Lab Luis Enrique Quarles MD HEMATOLOGY ORDERABLE S Performing Organization Address [facility] Co de Phone Number [facility] [place] [address] * APTT (09/21/2016 10:50 AM EST) Pathologist [facility] Partial Thromboplastin Time 32 25 - 35 sec [facility] Comment: The recommended therapeutic range for full dose, unfractionated heparin at [facility] is 80 ? 114 seconds. [...] ORDERABLE S Performing Organization Address City/[facility]/ZIP Co de Phone Number [facility] [place] [address] * (ABNORMAL) Prothrombin Time (09/21/2016 10:50 AM EST) Prothrombin Time 18.7(H) 12.0 - 15.0 sec [facility] Comment: An INR [...] may be appropriate depending on clinical circumstances. International Normalization Ratio 1.5(H) 0.9 - 1.1 [facility] Blood specimen (specimen) 09/21/2016 10:50 AM EST 09/21/2016 10:56 AM EST Narrative Resulting Agency Comment Spec In Lab Luis Enrique Quarles MD HEMATOLOGY ORDERABLE S Performing Organization Address City/[facility]/ZIP Co de Phone Number [facility] [place] [address] * (ABNORMAL) Hemogram (09/21/2016 10:50 AM EST) White Blood Cell 14.7(H) 4.0 - 9.5 x10(3)/mc L [facility] Red Blood Cell 2.40(L) 4.00 - 5.21 x10(6)/mc L [facility] Hemoglobin 7.9(L) 11.7 - 15.5 gm/dL [facility] Hematocrit 23.2(L) 35.7 - 45.8 % [facility] Comment: This result has been called to MICHELLE GRIGSBY by ASHU MORENO on 09 21 2016 at 1102, and has been read back. Mean Cell Volume 96.7(H) 82.6 - 94.4 fL [facility] Mean Cell Hemoglobin 32.9(H) 27.1 - 32.0 pg [facility] Mean Cell Hemoglobin Concentration 34.1 31.7 - 35.0 gm/dL [facility] Platelet 117(L) 145 - 357 x10(3)/mc L [facility] RDW Standard Deviation 42.6 37.0 - 46.0 fL [facility] RDW coefficient of variation 12.1 11.5 - 14.1 % [facility] Mean Platelet Volume 9.2 7.6 - 12.9 fL [facility] NRBC% auto 0.1 % [facility] NRBC Absolute 0.020(H) 0.000 - 0.000 x10(3)/mc L [facility] Blood specimen (specimen) 09/21/2016 10:50 AM EST 09/21/2016 10:56 AM EST Narrative Resulting Agency Comment Spec In Lab Luis Enrique Quarles MD HEMATOLOGY ORDERABLE S Performing Organization Address City/[facility] Co de Phone Number [facility] [place] [address] * Prepare Platelets, Apheresis (09/21/2016 10:30 AM EST) Dispensed? Yes [facility] Blood specimen (specimen) 09/21/2016 10:30 AM EST 09/21/2016 10:28 AM EST Alirio Esparza MD BLOOD BANK PRODUCT ORDERABLES Performing Organization Address City/[facility]/ZIP Co de Phone Number [facility] [place] [address] * (ABNORMAL) BLOOD GAS 2 ARTERIAL (09/21/2016 10:05 AM EST) pH, Arterial 7.33(L) 7.35 - 7.45 [facility] PCO2, Arterial 54(Critic al) 35 - 45 mmHg [facility] Comment:Noted by electrical/instrument technician. PO2, Arterial 218(H) 85 - 104 mmHg [facility] Bicarbonate, Arterial 27.9(H) 20.0 - 26.0 mmol/L [facility] Base Excess, Arterial 2.0 -3.0 - 3.0 mmol/L [facility] Hgb Blood Gas 8.6(L) 11.7 - 15.5 gm/dL [facility] Oxyhemoglobin, Arterial 98.4(H) 94.0 - 97.0 % [facility] Carboxyhemoglo bin, Arterial 0.5 % [facility] Comment: Nonsmokers: 0.5-1.5% COHB Smokers: Variable, but usually less than 10% Toxic: 20-30% COHB Lethal: Greater than 60% COHB Methemoglobin, Arterial 0.3 <=1.5 % [facility] Na Whole Blood 129(L) 135 - 145 mmol/L [facility] K Whole Blood 6.2(Criti gabrielle) 3.5 - 5.0 mmol/L [facility] Comment: Noted by electrical/instrument technician. Please note: Patients with WBC >100,000 may have falsely elevated Potassium levels. Contact the Clinical Chemistry Laboratory if there are any questions. ICa Whole Blood 0.95(L) 1.15 - 1.33 mmol/L [facility] Comment: Note: ??Total bilirubin higher than 20 mg/dL may lead to falsely low ionized calcium. CL Whole Blood 100 98 - 107 mmol/L [facility] Gluc Whole Bld 289(H) 65 - 199 mg/dL [facility] Comment:Diabetes: >=200 mg/d L plus symptoms. Lactate WB 2.2 0.5 - 2.2 mmol/L [facility] Temp Art 37.0 Celsius [facility] Blood specimen (specimen) 09/21/2016 10:05 AM EST 09/21/2016 10:05 AM EST Alirio Esparza MD POINT OF CARE TEST ORDERABLES [facility] [place] [address] * (ABNORMAL) BLOOD GAS 2 ARTERIAL (09/21/2016 9:44 AM EST) pH, Arterial 7.22(Criti gabrielle) 7.35 - 7.45 [facility] LABORATORY Comment:Noted by electrical/instrument technician. PCO2, Arterial 70(Critica l) 35 - 45 mmHg [facility] Comment:Noted by electrical/instrument technician. PO2, Arterial 224(H) 85 - 104 mmHg [facility] Bicarbonate, Arterial 27.8(H) 20.0 - 26.0 mmol/L [facility] Base Excess, Arterial 0.0 -3.0 - 3.0 mmol/L [facility] Hgb Blood Gas 8.7(L) 11.7 - 15.5 gm/dL [facility] Oxyhemoglobin, Arterial 98.5(H) 94.0 - 97.0 % [facility] Carboxyhemoglob in, Arterial 0.6 % [facility] Comment: Nonsmokers: 0.5-1.5% COHB Smokers: Variable, but usually less than 10% Toxic: 20-30% COHB Lethal: Greater than 60% COHB Methemoglobin, Arterial 0.3 <=1.5 % [facility] Na Whole Blood 131(L) 135 - 145 mmol/L [facility] K Whole Blood 5.9(H) 3.5 - 5.0 mmol/L [facility] Comment: Please note: Patients with WBC >100,000 may have falsely elevated Potassium levels. Contact the Clinical Chemistry Laboratory if there are any questions. ICa Whole Blood 1.00(L) 1.15 - 1.33 mmol/L [facility] Comment: Note: ??Total bilirubin higher than 20 mg/dL may lead to falsely low ionized calcium. CL Whole Blood 101 98 - 107 mmol/L [facility] Gluc Whole Bld 227(H) 65 - 199 mg/dL [facility] Comment:Diabetes: >=200 mg/d L plus symptoms. Lactate WB 2.1 0.5 - 2.2 mmol/L [facility] Blood specimen (specimen) 09/21/2016 9:44 AM EST 09/21/2016 9:44 AM EST Alirio Esparza MD POINT OF CARE TEST ORDERABLES Performing Organization Address [facility] Phone Number [facility] [place] [address] * (ABNORMAL) Hemoglobin (09/21/2016 9:42 AM EST) Hemoglobin 7.2(L) 11.7 - 15.5 gm/dL [facility] Blood specimen (specimen) 09/21/2016 9:42 AM EST 09/21/2016 9:51 AM EST Narrative Resulting Agency Comment Spec In Lab Alirio Esparza MD HEMATOLOGY ORDERABL ES Performing Organization Address [facility] Phone Number [facility] [place] [address] * Platelet count (09/21/2016 9:42 AM EST) Platelet 159 145 - 357 x10(3)/mc L [facility] Immature Plt % 1.6 0.0 - 7.4 % [facility] Comment: Limitation of the Immature Platelet Fraction (IPF)-May be less reliable when the platelet count is less than 42o049/uL due to statistical imprecision. The IPF value [...] in a decreased state of production. References: [employer] The Clinical Value of the Immature Platelet Fraction (IPF) in Cell Recovery Document Number 10-1143 12/2010 [employer] The Role of the Immature Platelet Fraction (IPF) in the Differential Diagnosis of Thrombocytopenia, Document MKT-10-1209 V05 P012/13 Blood specimen (specimen) 09/21/2016 9:42 AM EST 09/21/2016 9:51 AM EST Narrative Resulting Agency Comment Spec In Lab Alirio Esparza MD HEMATOLOGY ORDERABL ES Performing Organization Address [facility] Co de Phone Number [facility] [place] [address] * (ABNORMAL) Hematocrit (09/21/2016 9:42 AM EST) Hematocrit 21.6(L) 35.7 - 45.8 % [facility] Comment: This result has been called to MICHELLE ALEJANDRE by Serjio Frazier on 09 21 2016 at 0957, and has been read back. Blood specimen (specimen) 09/21/2016 9:42 AM EST 09/21/2016 9:51 AM EST Narrative Resulting Agency Comment Spec In Lab Alirio Esparza MD HEMATOLOGY ORDERABL ES Performing Organization Address [facility] Co de Phone Number [facility] [place] [address] * Fibrinogen (09/21/2016 9:42 AM EST) Fibrinogen 219 180 - 510 mg/dL [facility] Comment: Called by: JONNATHAN, Read back by: MICHELLE ALEJANDRE_, Date/Time:09/21/16 10:03_. A fibrinogen level >100 mg/dL is adequate for hemostasis in most patients without underlying bleeding disorders. Blood specimen (specimen) 09/21/2016 9:42 AM EST 09/21/2016 9:51 AM EST Narrative Resulting Agency Comment Spec In Lab Alirio Esparza MD HEMATOLOGY ORDERABL ES [facility] [place] [address] * (ABNORMAL) BLOOD GAS 2 ARTERIAL (09/21/2016 9:10 AM EST) pH, Arterial 7.36 7.35 - 7.45 [facility] PCO2, Arterial 48(H) 35 - 45 mmHg [facility] PO2, Arterial 295(H) 85 - 104 mmHg [facility] Bicarbonate, Arterial 26.0 20.0 - 26.0 mmol/L [facility] Base Excess, Arterial 0.5 -3.0 - 3.0 mmol/L [facility] Hgb Blood Gas 8.0(L) 11.7 - 15.5 gm/dL [facility] Oxyhemoglobin, Arterial 98.3(H) 94.0 - 97.0 % [facility] Carboxyhemoglob in, Arterial 1.0 % [facility] Comment: Nonsmokers: 0.5-1.5% COHB Smokers: Variable, but usually less than 10% Toxic: 20-30% COHB Lethal: Greater than 60% COHB Methemoglobin, Arterial 0.3 <=1.5 % [facility] Na Whole Blood 135 135 - 145 mmol/L [facility] K Whole Blood 5.4(H) 3.5 - 5.0 mmol/L [facility] Comment: Please note: Patients with WBC >100,000 may have falsely elevated Potassium levels. Contact the Clinical Chemistry Laboratory if there are any questions. ICa Whole Blood 0.93(L) 1.15 - 1.33 mmol/L [facility] Comment: Note: ??Total bilirubin higher than 20 mg/dL may lead to falsely low ionized calcium. CL Whole Blood 102 98 - 107 mmol/L [facility] Gluc Whole Bld 195 65 - 199 mg/dL [facility] Comment:Diabetes: >=200 mg/d L plus symptoms. Lactate WB 1.8 0.5 - 2.2 mmol/L [facility] Temp Art 37.0 Celsius [facility] Blood specimen (specimen) 09/21/2016 9:10 AM EST 09/21/2016 9:10 AM EST Alirio Esparza MD POINT OF CARE TEST ORDERABLES [facility] [place] [address] * Surgical Pathology Report (09/21/2016 9:09 AM EST) Final Diagnosis [id number] ?Location: The signing pathologist has (i) examined [...] ?. (R1) ??ADELITA 09/24/2016 9:32 AM EST [facility] AORTIC STRUCTURE / Unknown 09/21/2016 9:09 AM EST 09/21/2016 9:09 AM EST Alirio Esparza MD PATHOLOGY/CYTOLOGY ORDERABLES Performing Organization Address [facility] [place] [address] * Specimen to Pathology (surgical or derm) (09/21/2016 9:09 AM EST) AP Specimen 09/21/2016 9:09 AM EST 09/21/2016 9:09 AM EST Narrative [facility] - 09/21/2016 9:09 AM EST Specimen requisition ordered. ??Separate Pathology report to follow Alirio Esparza MD PATHOLOGY/CYTOLOGY ORDERABLES Performing Organization Address [facility] [place] [address] * (ABNORMAL) BLOOD GAS 2 ARTERIAL (09/21/2016 8:50 AM EST) pH, Arterial 7.41 7.35 - 7.45 [facility] PCO2, Arterial 33(L) 35 - 45 mmHg [facility] PO2, Arterial 348(H) 85 - 104 mmHg [facility] Bicarbonate, Arterial 20.6 20.0 - 26.0 mmol/L [facility] Base Excess, Arterial -4.1(L) -3.0 - 3.0 mmol/L [facility] Hgb Blood Gas 9.5(L) 11.7 - 15.5 gm/dL [facility] Oxyhemoglobin, Arterial 98.8(H) 94.0 - 97.0 % [facility] Carboxyhemoglob in, Arterial 0.3 % [facility] Comment: Nonsmokers: 0.5-1.5% COHB Smokers: Variable, but usually less than 10% Toxic: 20-30% COHB Lethal: Greater than 60% COHB Methemoglobin, Arterial 0.3 <=1.5 % [facility] Na Whole Blood 137 135 - 145 mmol/L [facility] K Whole Blood 4.0 3.5 - 5.0 mmol/L [facility] Comment: Please note: Patients with WBC >100,000 may have falsely elevated Potassium levels. Contact the Clinical Chemistry Laboratory if there are any questions. ICa Whole Blood 1.04(L) 1.15 - 1.33 mmol/L [facility] Comment: Note: ??Total bilirubin higher than 20 mg/dL may lead to falsely low ionized calcium. CL Whole Blood 105 98 - 107 mmol/L [facility] Gluc Whole Bld 93 65 - 199 mg/dL [facility] Comment:Diabetes: >=200 mg/d L plus symptoms. Lactate WB 1.0 0.5 - 2.2 mmol/L [facility] Blood specimen (specimen) 09/21/2016 8:50 AM EST 09/21/2016 8:50 AM EST Alirio Esparza MD POINT OF CARE TEST ORDERABLES Performing Organization Address City/State/[facility] Co de Phone Number [facility] [place] [address] * (ABNORMAL) BLOOD GAS 2 ARTERIAL (09/21/2016 8:18 AM EST) pH, Arterial 7.42 7.35 - 7.45 [facility] PCO2, Arterial 36 35 - 45 mmHg [facility] PO2, Arterial 283(H) 85 - 104 mmHg [facility] Bicarbonate, Arterial 22.8 20.0 - 26.0 mmol/L [facility] Base Excess, Arterial -2.0 -3.0 - 3.0 mmol/L [facility] Hgb Blood Gas 12.6 11.7 - 15.5 gm/dL [facility] Oxyhemoglobin, Arterial 99.0(H) 94.0 - 97.0 % [facility] Carboxyhemoglob in, Arterial 0.6 % [facility] Comment: Nonsmokers: 0.5-1.5% COHB Smokers: Variable, but usually less than 10% Toxic: 20-30% COHB Lethal: Greater than 60% COHB Methemoglobin, Arterial 0.0 <=1.5 % [facility] Na Whole Blood 144 135 - 145 mmol/L [facility] K Whole Blood 4.0 3.5 - 5.0 mmol/L [facility] Comment: Please note: Patients with WBC >100,000 may have falsely elevated Potassium levels. Contact the Clinical Chemistry Laboratory if there are any questions. ICa Whole Blood 1.22 1.15 - 1.33 mmol/L [facility] Comment: Note: ??Total bilirubin higher than 20 mg/dL may lead to falsely low ionized calcium. CL Whole Blood 106 98 - 107 mmol/L [facility] Gluc Whole Bld 102 65 - 199 mg/dL [facility] Comment:Diabetes: >=200 mg/d L plus symptoms. Lactate WB 1.2 0.5 - 2.2 mmol/L [facility] FIO2 Art 95 % [facility] Flow Art 1.1 LPM [facility] PF Ratio Art 298 [facility] Temp Art 35.6 Celsius [facility] Blood specimen (specimen) 09/21/2016 8:18 AM EST 09/21/2016 8:18 AM EST Alirio Esparza MD POINT OF CARE TEST ORDERABLES [facility] [place] [address] * Prepare RBC (09/21/2016 7:05 AM EST) Dispensed? Yes [facility] Blood specimen (specimen) 09/21/2016 7:05 AM EST 09/21/2016 7:02 AM EST Alirio Esparza MD BLOOD BANK PRODUCT ORDERABLES [facility] [place] [address] * POCT Glucose (09/21/2016 6:42 AM EST) Glucose, POC 104 65 - 199 mg/dL [facility] Comment: Supplemental ranges: <140 mg/dL before meals <180 mg/dL all other times of the day Blood specimen (specimen) 09/21/2016 6:42 AM EST 09/21/2016 6:42 AM EST Alirio Esparza MD POINT OF CARE TEST ORDERABLES Performing Organization Address [facility] Co de Phone Number [facility] [place] [address] documented in this encounter Visit Diagnoses Diagnosis [...] dose on Wed09/21/16 at 1230, Until Discontinued, [place] teeth, Routine Given 09/25/2016 9:40 AM EST [...] if phenyleprine and/or vasopressin ineffective.Call pager # [phone] if initiated., Routine Rate/Dose Change 09/21/2016 2:27 [...] 2.0 L/min/M2. Maximum volume 2 L. Call lodging house keeper for additional fluid orders: pager #[phone]. Rate/Dose Verify 09/22/2016 10:00 AM EST 10 [...] (Due - Provider: Kendall Martínez [facility]) aspirin chewable tablet 81 mg(Linked [...] 1622 (Given - Provider: Chaya Hill RN) chlorhexidine (PERIDEX) 0.12 % oral solution 15 mL 15 mL, Oral, EVERY 12 HOURS SCHEDULED (2 times per day), First dose on Wed09/21/16 at 1230, Until Discontinued, [place] teeth, Routine 0900 (Not Given - Provider: [...] Barnes RN) 0941 (Given - Provider: Joselyn Caceres RN) furosemide (LASIX) injection 20 mg (CANCELED) 20 mg, Intravenous, 2 TIMES DAILY, First dose on Wed09/23/16 at 1130, Until Discontinued 1301 (Given - Provider: Federico Apple RN)1708 (Given - Provider: Federico Apple, RN) 08 (Given - Provider: Marek Barnes, VALDO)162 (Given - Provider: Chaya Hill RN) 0941 [...] infuse slowly over 2 minutes. , Routine 0817 (See Alternative - Provider: Elsa [...] Routine documented in this encounter Care Teams Cast Iron Dipper Relationship Specialty Start Date End Date Deborah Quiroga, ANURAG PCP - General Family Medicine 03/24/16 02/04/23 documented as of this encounter
--- OUTSIDE RECORDS SUMMARY | 2024-03-07 14:37 | XMS_ITS | Encounter Summary ---
[place] [address] Care Team Providers Care Co Founder & Ceo Name Role Phone Ashley Quirogan Cornelius ANURAG Primary Care Provider [phone] Reason for Visit * Reason Onset Date Comments Medical Care Coordination 09/14/2016 Encounter Details Date Type Department Care Team (Late st Contact Info) Description 09/14/2016 Telephone Hematology [place] [phone] Alexandrea Greenwood RN Medical Care Coordination Social [...] 09/14/2016 9:10 AM EST Message received from stenographer secretary: Injection/Infusion Referral Call placed to [facility] Infusion Room Spoke charis Bragg. Services to be provided for pt are: Miles 09/16/16 Mahsa confirmed they would provide services to pt and would contact with appointment time. Pt aware to expect the phone call ??orders faxed to [phone]). documented in this encounter Plan of Treatment Upcoming Encounters Date Type Department Care Team (Late st Contact Info) Description 06/05/2024 11:30 AM EST Office Visit [place] [address] Magdalena Peralta MD [facility] [place] [address] 03/01/2025 4:15 PM EDT Office Visit Dermatology at [place] [address] [facility] [place] [phone] Marek Bonilla MD [address], [address] [place] [address] documented as of this encounter Visit Diagnoses Not on filedocumented in this encounter Care Teams Co Founder & Ceo Relationship Specialty Start Date End Date Deborah Quiroga APRN PCP - General Family Medicine 03/24/16 02/04/23 documented as of this encounter
--- OUTSIDE RECORDS SUMMARY | 2024-03-07 14:37 | XMS_ITS | Encounter Summary ---
[place] [address] Care Team Providers Care Line Assigner Name Role Phone JunaidDeborah APRN Primary Care Provider [phone] Reason for Visit * Reason Onset Date Comments Labs Only 09/16/2016 Encounter Details Date Type Department Care Team (Late st Contact Info) Description 09/16/2016 Telephone [place] [phone] Alexandrea Greenwood, RN Labs Only Social History [...] 09/16/2016 11:09 AM EST Message received from citizenship instructor: Purnima is having her Neulasta done today at [facility]. ??She is wondering if we want to do a CBC prior to the injection? [phone] Borjas: CBC is fine RN spoke with Swapna at [facility] who confirms they can draw CBC on pt today, RN faxed CBC w/diff to [facility] lab at [phone] RN relayed to pt that CBC ordered had been faxed to [facility], pt will have CBC drawn today prior to neulasta injection. documented in this encounter Plan of Treatment Upcoming Encounters Date Type Department Care Team (Late st Contact Info) Description 06/05/2024 11:30 AM EST Office [place] [address] Magdalena Peralta MD [facility] [address] [place] [address] 03/01/2025 4:15 PM EDT Office Visit Dermatology at [place] [address] [place] [address] Marek Bonilla MD [address], [place] [address] documented as of this encounter Results * (ABNORMAL) CBC (with Diff) (09/16/2016 12:06 PM EST) White Blood Cell 1.69(EXTER NAL/ABN) 4.4 - 10.8 EXTERNAL LAB Hemoglobin 12.4 12.0 - 16.0 EXTERNAL LAB Hematocrit 37.5 36.0 - 46.0 EX[facility]NAL LAB Platelet 230 130 - 400 [facility] LAB ANC 0.54(EXTER NAL/ABN) 1.2 - 3.4 EXTERNAL LAB Blood specimen (specimen) 09/16/2016 12:06 PM EST Markel Borjas MD HEMATOLOGY ORDERAB LES [facility] documented in this encounter Visit Diagnoses Diagnosis Neutropenia, unspecified type documented in this encounter Care Teams Line Assigner Relationship Specialty Start Date End Date Deborah Quiroga APRN PCP - General Family Medicine 03/24/16 02/04/23 documented as of this encounter
--- OUTSIDE RECORDS SUMMARY | 2024-03-07 14:37 | XMS_ITS | Encounter Summary ---
[place] [address] Care Team Providers Care Tool Die Maker Name Role Phone Ashley Quirogan Cornelius ANURAG Primary Care Provider [phone] Reason for Visit * Reason Onset Date Comments Medication Management 09/14/2016 Encounter Details Date Type Department Care Team (Late st Contact Info) Description 09/14/2016 Telephone Hematology [place] [phone] Alexandrea Greenwood, advertising director Management Social History Tobacco Use Types Packs/Day [...] 09/14/2016 9:12 AM EST Message received from legal administrative secretary: Purnima called, asking for clarification on [...] Office [place] [address] Magdalena Peralta MD [facility] [place] [address] 03/01/2025 4:15 PM EDT Office Visit Dermatology at [place] [address] [facility] [place] [phone] Marek Bonilla MD [address] [place] [address] documented as of this encounter Visit Diagnoses Not on filedocumented in this encounter Care Teams Tool Die Maker Relationship Specialty Start Date End Date Deborah Quiroga APRN PCP - General Family Medicine 03/24/16 02/04/23 documented as of this encounter
--- OUTSIDE RECORDS SUMMARY | 2024-03-07 14:37 | XMS_ITS | Encounter Summary ---
Author Organization [facility] Address [facility] [place] [address] Care Team Providers Care Clinical Audiologist Name Role Phone Junaid Deborah Shields APRN Primary Care Provider [phone] Encounter Details Date Type Department Care Team (Latest Contact Info) Description 10/14/2016 - 10/14/2016 11:59 PM EDT Hospital Encounter [place] [address] Alirio Esparza MD [facility] [place] [address] Pain Discharge Disposition: Home Social History Tobacco [...] 11:30 AM EST Office Visit [place] [address] Magdalena Peralta MD [facility] [place] [address] 03/01/2025 4:15 PM EDT Office Visit Dermatology at [address] [place] [address] Marek Bonilla MD [address] [place] [address], [place] [address] documented as of this encounter Procedures Procedure Name Priority Date/Time Associated Diagnosis Comments FILM LIBRARY STORAGE ONLY DX CHEST Routine 10/14/2016 12:00 AM EDT Pain documented in this encounter Results * Film Library- Storage Only DX Chest (10/14/2016 12:00 AM EDT) Narrative [facility] - 10/14/2016 5:16 PM EDT This exam is for storage only and is auto-finalizing. Ailrio Esparza MD IMG FILM LIBRARY OR DERABLES [place], [place] documented in this encounter Visit Diagnoses Diagnosis Pain Generalized pain documented in this encounter Care Teams Clinical Audiologist Relationship Specialty Start Date End Date Deborah Quiroga, DIGITAL PRESS OPERATOR PCP - General Family Medicine 03/24/16 02/04/23 documented as of this encounter
--- OUTSIDE RECORDS SUMMARY | 2024-03-07 14:37 | XMS_ITS | Encounter Summary ---
[place] [address] Care Team Providers Care In School Suspension Aide Name Role Phone Deborah Quiroga ANURAG Primary Care Provider [phone] Encounter Details Date Type Department Care Team (Late st Contact Info) Description 09/11/2016 Orders Only Hematology [place] [address] Alexandrea Greenwood RN Social History [...] original note were not included. N [facility] HEM ONC [facility] [id number] Date: 09/11/16 Patient Name: Onesimo Thacker : 1955 Diagnosis: Neutropenia Referral to [site]: [facility] Orders: ? Growth factor: [x] Neulasta 6mg SQ injection x 1 on 09/16/16 Signature: Markel Borjas MD beeper # [id number] Co-signature [if needed]: documented in this encounter Plan of Treatment Upcoming Encounters Date Type Department Care Team (Late st Contact Info) Description 06/05/2024 11:30 AM EST Office [place] [address] Magdalena Peralta MD [facility] [place] [address] 03/01/2025 4:15 PM EDT Office Visit Dermatology at [place] [address] [facility] [place] [address] Marek Bonilla MD [address] [facility] [place] [address] documented as of this encounter Procedures Procedure Name Priority Date/Time Associated Diagnosis Comments TRANSESOPHAGEAL ECHOCARDIOGRAM (GAVINO) Routine 09/22/2016 documented in this encounter Results * Transesophageal Echocardiogram (GAVINO) (09/22/2016) Anatomical Region Laterality Modality Other 09/22/2016 Narrative 09/22/2016 8:30 AM EST Procedure: ?Transesophageal Echocardiogram Patient: ?ANDREW ONESIMO M ? (Age): 1955(61y) Med Rec#: ? [id number] ?Sex: ?M ? Site Loc: ? [facility] ?Ht / Wt: ??(cm)/ (kg) ? Pt. Loc: ?OR ? Study Date: ?? 09/21/2016 ?Pt. Type: Tape: ? 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 AVR for severe Rhythm: ? [...] ? Mid-Inferior ?Normal ? Mid-Inferoseptal ?Normal ? [place]-Septal ? Normal ? [place]-Anterior ? Normal ? [place]-Lateral ?Normal ? [place]-Inferior ? Normal ? [place]-Tip ?Normal ? This report has been electronically signed by: Henrik Yarbrough M.D. ? 09/22/2016 08:30:41 Images reviewed and interpretation verified [facility]ound [facility] Procedure Note Henrik Yarbrough MD - 09/22/2016 Procedure: Transesophageal Echocardiogram Patient: ANDREW Mejias DOB(Age): 1955(61y) Med Rec#: [id number] Sex: M Site Loc: [facility] Ht / Wt: (cm)/ (kg) Pt. Loc: OR Study Date: 09/21/2016 Pt. 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 09/22/2016 08:30:41 Images reviewed and interpretation verified [facility] Unknown ECHO ORDERABLES documented in this encounter Visit Diagnoses Not on filedocumented in this encounter Care Teams In School Suspension Aide Relationship Specialty Start Date End Date Deborah Quiroga APRN PCP - General Family Medicine 03/24/16 02/04/23 documented as of this encounter
--- OUTSIDE RECORDS SUMMARY | 2024-03-07 14:37 | XMS_ITS | Encounter Summary ---
[place] [address] Care Team Providers Care Soils Analyst Name Role Phone Junaid, Deborah Shields APRN Primary Care Provider [phone] Reason for Visit * Auth/Cert Specialty Diagnoses / Procedures Referred By Crispin t Referred To Contact Diagnoses Aortic stenosis Procedures PRO REPLACE AORT VALV, PROSTH VALV @REPLACE AORTIC VALVE, OPEN, W\CPB, W\PROSTHETIC VALVE (WRVU 41.32) Referral ID Status Reason Start Date Expiration Date Visits Re quested Visits Authorized [id number] 1 1 Encounter Details Date Type Department Care Team (Late st Contact Info) Description 09/21/2016 7:25 AM EST Anesthesia Event [place] [address] Luis Enrique Quarles MD [facility] [address] [place] [address] Henrik Cooper MD [facility] [address] [place] [address] Anesthesia Record Procedure Summary Procedure Name Responsible [...] 0819 Sternotomy 0844 CV Bypass init 1009 Vegetables Cook 1014 An Clamp Remove 1031 CP Bypass [...] Tube 09/21/16 (#28 angled chest tube to [place]: left: pericardial); Left; 09/22/16; 1119 09/21/16 0000 by Toshia Alejandre RN 09/22/16 1119 by Vero Bonilla RN Chest Tube 09/21/16 (#28 straig ht chest tube to [place]; right: mediastinal'); Right; mediastinum; 09/22/16; 1118 09/21/16 0000 by Toshia Alejandre RN 09/22/16 1118 by Vero Bonilla RN (RETIRED) Peripheral IV Line - Single Lumen 09/21/16; 0648; metacarpal vein (top of hand), left; [id number] catheter system; 20 gauge; valdo Arteaga; 09/23/16; [...] Cooper MD - 09/21/2016 6:50 PM EST [facility] Department of Anesthesiology Post-procedure Note Patient: Purnima Thacker Procedure Summary Date Anesthesia Start Anesthesia Stop Room / Location 09/21/16 07 1152 [facility] OR 16 / [facility] MA[facility] OR Procedure Diagnosis Surgeon Responsible Provider @REPLACE AORTIC VALVE, OPEN, W\CPB, W\PROSTHETIC VALVE (WRVU 41.32) (N/A Chest); @AORTOPLASTY FOR SUPRAVALVULAR STENOSIS (WRVU 29.33) (N/A Chest) () Alirio Francisco MD Clark, Jeffrey A, MD All Anesthesia Providers: Anesthesiologist: Luis Enrique Quarles MD Rice Drier: Henrik Cooper MD Last (1hr) Vitals: BP Temp 36.1 ??C (97 ??F) (09/21/16 1800) Pulse 79 (09/21/16 1800) Resp 11 (09/21/16 1800) SpO2 98 % (09/21/16 1800) Patient Location: [facility] Level of Consciousness: Sedated (Pharmacologic/Intentional) [...] 11:30 AM EST Office [place] [address] Magdalena Peralta MD [facility] [place] [address] 03/01/2025 4:15 PM EDT Office Visit Dermatology at [place] [address] [place] [phone] Marek Bonilla MD [address] [place] [address] documented as of this encounter Visit Diagnoses [...] mg documented in this encounter Care Teams Soils Analyst Relationship Specialty Start Date End Date Deborah Quiroga, LADLE CLEANER PCP - General Family Medicine 03/24/16 02/04/23 documented as of this encounter
--- OUTSIDE RECORDS SUMMARY | 2024-03-07 14:37 | XMS_ITS | Encounter Summary ---
Author Organization [facility] Address [facility] [place] [address] Care Team Providers Care Cheese Packer Name Role Phone Deborah Quiroga APRN Primary Care Provider [phone] Encounter Details Date Type Department Care Team (Late st Contact Info) Description 09/17/2016 External Results Hematology [place] [address] Alexandrea Greenwood RN Neutropenia, unspecified type Social [...] 11:30 AM EST Office [place] [address] Magdalena Peralta MD [facility] [place] [address] 03/01/2025 4:15 PM EDT Office Visit Dermatology at [address] [place] [phone] Marek Bonilla MD [address] [facility] [place] [address] documented as of this encounter Procedures Procedure [...] type documented in this encounter Care Teams Cheese Packer Relationship Specialty Start Date End Date Deborah Quiroga APRN PCP - General Family Medicine 03/24/16 02/04/23 documented as of this encounter
--- OUTSIDE RECORDS SUMMARY | 2024-03-07 14:37 | XMS_ITS | Encounter Summary ---
Author Organization [place] [address] Care Team Providers Care Voltmeter Operator Name Role Phone Ashley Quirogazac Shields APRN Primary Care Provider [phone] Reason for Visit * Auth/Cert Specialty Diagnoses / Procedures Referred By Crispin t Referred To Contact Diagnoses Aortic stenosis Procedures PRO REPLACE AORT VALV, PROSTH VALV @REPLACE AORTIC VALVE, OPEN, W\CPB, W\PROSTHETIC VALVE (WRVU 41.32) Referral ID Status Reason Start Date Expiration Date Visits Re quested Visits Authorized [id number] 1 1 Encounter Details Date Type Department Care Team (Late st Contact Info) Description 09/21/2016 7:30 AM EST - 09/21/2016 12:04 PM EST Surgery [place] [address] Alirio Esparza MD [facility] DR [place] [address] @REPLACE AORTIC VALVE, OPEN, W\CPB, W\PROSTHETIC VALVE [...] Patient Age: 61 y.o. Birthdate: 1955 Language: Hungarian Race: White Ethnicity: Not nor Admit Date: 09/21/2016 Discharge Date: 09/25/2016 Attending Physician: Alirio Esparza MD Follow-up Recommendations for Providers: Please continue routine management of cardiovascular risk factors including blood pressure, lipids,glucose, etc. Please note any changes to medications. Patient to follow-up with PCP, Deborah Quiroga APRN, in 1-2 weeks. Patient to follow-up with Central Office Equipment Installer, Dr. Antelmo Burrell, in two weeks. Patient to follow-up with Cardiac Surgery, Dr. Alirio Esparza, to be scheduled for before 10/19/2016, with CXR, EKG, and Echo. Inpatient Provider Contact Information: [facility] Section of Cardiac Surgery [facility] [address] FAX [phone] Discharge Diagnoses (Hospital Problems) Primary Diagnoses: Secondary [...] @REPLACE AORTIC VALVE, OPEN, W\CPB, W\PROSTHETIC VALVE ([facility] performed by Alirio Esparza MD at [facility] MAIN OR ??? Pro aortoplas for supravalv sten N/A 09/21/2016 @AORTOPLASTY FOR SUPRAVALVULAR STENOSIS (VU 29.33) performed by Alirio Esparza MD at [facility] MAIN OR Prior To Admission Medications [...] Purnima Thacker was admitted to [facility] on 09/21/2016 via the Same [...] Alirio Esparza and/or the Cardiac Surgery Physician Tucking Machine Operator Team may be reached at . Antibiotic prophylaxis: You will need to take antibiotics prior to many invasive tests and treatments, such as dental cleaning, which should be done every 6 months. Your primary care physician or your dentist can prescribe this medication. Please refer to the card with the [place] [employer] Guidelines for more information. You have been provided with 3 copies of this card. Keep one for your self. Give one to your primary care physician and one to your dentist. Please refer to the [place] [employer] Guidelines for more information. Good [...] Dr. Alirio Jones. You may use a [employer] Track or treadmill but avoid any pulling [...] should resume a low fat, low cholesterol, [place] [employer] Diet. Driving: No driving until [...] the outpatient Phase 2 Cardiac Rehabilitation at [facility]. The patient agrees to a referral to this program. The referral will be sent at discharge and the patient should be contacted by the program within 1- 2 weeks from discharge. Future Appointments and Orders Future Appointments Provider Department Dept Phone 11/20/2016 11:30 AM Markel Borjas MD [facility] [phone] Future Orders Complete By Expires Echocardiogram Transthoracic([facility]) [XMR250 Custom] 10/18/2016 (Approximate) 09/18/2017 Process Instructions: If the Echocardiogram is to be PERFORMED in a location other than [place]--STOP and order [id number], Echocardiogram South/External. Scheduling Instructions: Questions: Is a Bubble Study requested?: No Does the patient have Congenital Heart Disease?: No Does patient require sedation?: None GA rationale: Should this service be billed to the research sponsor?: EKG 12 Lead [EKG1 Custom] 10/18/2016 (Approximate) 09/25/2017 Process Instructions: Scheduling Instructions: Questions: Which location will this be performed?: [place] Is a rhythm strip needed?: No If EKG Reason is Pre-op Evaluation, indicate diagnosis for surgery.: Should this service be billed to the research sponsor?: XR Chest PA & Lateral (Generic) [[id number] Custom] 10/18/2016 (Approximate) 09/25/2017 Process Instructions: Scheduling Instructions: Questions: Where will study be performed?: [facility]- Radiology Portable exam?: No Reason for exam and clinical history: s/p AVReplacement, patch annuloplasty 1 month f/u Other pertinent information: Stat read required?: Date of injury if applicable: Requested Time: Referral to Cardiac Rehab [KTU148 Custom] As directed Process Instructions: If no progress note charted, please enter Clinical details in comments. Scheduling Instructions: Questions: My question or request is: s/p AVR. Cardiac rehab at [facility] Referral to Home Health - at DISCHARGE [HTA5182 CPT(R)] As directed Process Instructions: Scheduling Instructions: Comments: DOCUMENTATION FOR VNA SERVICES (INCLUDING THOSE PATIENTS WITH MEDICARE COVERAGE REQUIRING HOME VNA SERVICES AND/OR HOSPICE SERVICES) PATIENT'S LOCATION: Purnima M Kirstie [address] [place] [phone] (home) No relevant phone numbers on file. [employer] Exceptional[employer] Teacher's Name: self In discussion with the attending physician, it is certified that this patient is under their care and that they, or a Nurse Practitioner, or Physician Tucking Machine Operator who is working directly with [...] for services as follows: HOME HEALTH AGENCY: [facility] PHONE: [phone] FAX: [phone] RN orders: Cardiopulmonary assessment, incisional assessment, assess [...] issues please call the Cardiac SurgeryOffice at [phone] FOR MEDICARE ONLY: In discussion with the [...] noted. Questions: Agency name and contact information: [facility] Patient location post discharge: home What services are requested: Registered Nurse Physical Therapy Occupational Therapy Start date: Responsible MD post discharge contact info: Arrangements for VNA/home care: As above. VN RN OR PCP TO PLEASE REMOVE CHEST TUBE SUTURES ON OR AFTER 09/30/16 Signed: Crispin Aranda PA-C 09/25/2016 [facility] Section of Cardiac Surgery [facility] [address] FAX [phone] Date: 09/25/2016 CC: ANURAG Alford Caryn E, APRN [address] [place] [address] documented in this encounter Discharge Instructions * [...] Alirio Esparza and/or the Cardiac Surgery Physician Tucking Machine Operator Team may be reached at . Antibiotic prophylaxis: You will need to take antibiotics prior to many invasive tests and treatments, such as dental cleaning, which should be done every 6 months. Your primary care physician or your dentist can prescribe this medication. Please refer to the card with the [place] [employer] Guidelines for more information. You have been provided with 3 copies of this card. Keep one for your self. Give one to your primary care physician and one to your dentist. Please refer to the [place] [employer] Guidelines for more information. Good [...] Dr. Alirio Jones. You may use a [employer] Track or treadmill but avoid any pulling [...] should resume a low fat, low cholesterol, [place] [employer] Diet. Driving: No driving until [...] the outpatient Phase 2 Cardiac Rehabilitation at [facility]. The patient agrees to a referral [...] PM EST Cardiac Surgery Progress Note: ID: [id number] S/p AVR, patch aortoplasty POD#2. PMH of [...] Gas) No results found for: PHART, PO2ART, ABY8ZNO Assessment/Plan: TPW out this am. (+) BM. [...] Signed: Crispin Aranda PA-C 09/24/2016 Team pager: [phone] after 5pm [facility] Section of Cardiac Surgery * Leonor Henson S, AGRICULTURAL APPRAISER - 09/23/2016 10:48 AM EST Cardiac Surgery Progress Note: ID: [id number] s/p AVR, patch aortoplasty POD#2. PMH of [...] Gas) No results found for: PHART, PO2ART, TAG9ZBL Assessment/Plan: s/p AVR, patch aortoplasty POD#2. PMH of Neutropenia, HLD, HTN, Depression, obesity, . Transferred from [facility] yesterday and doing well. Pathway. [...] rounds. Signed: Leonor Henson APRN [facility] Section of Cardiac Surgery Date: 09/23/2016 * Nico Palacios PA - 09/22/2016 9:56 AM EST Cardiac Surgery Progress Note: ID: [id number] s/p AVR, patch aortoplasty POD#1. PMH of [...] NT, ND, soft. Ext: Moves all extremities. [place], well perfused. Incisions: C/D/I Tubes/Lines/Drains: PIV, leanna, [...] on rounds. Signed: EKATERINA KIM [facility] Section of Cardiac Surgery Date: [...] Outcome (s) achieved Date Met: 09/25/16 09/25/16 0804 Coping/Psychosocial Plan Of Care Reviewed With patient [...] with outpatient services Lalitha Cohen SPTA Pager: [phone] Inpatient Physical Therapy Patient status, treatment interventions, and goals discussed with student. I am in agreement with all details and associated flowsheet rows as documented and was present for all aspects of the patient treatment session. Nery Jaramillo PTA Pager [phone] Problem: Acute Rehab Services Goal & Intervention Plan Goal: Bed Mobility Goal Stand Alone Therapy Goal Outcome: Ongoing (Interventions Implemented as Appropriate) 09/22/16 1611 09/25/16 0947 Bed Mobility Goal Bed Mobility Goal, Time to Achieve 4 days -- Bed Mobility Goal, Activity Type scoot/bridge;supine to sit/sit to supine -- Bed Mobility Goal, [place] Level independent -- Bed Mobility Goal, Additional [...] Achieve 4 days -- Gait Training Goal, [place] Level independent -- Gait Training Goal, Distance [...] * Plan of Care - Nery Jaramillo CAR RENTAL AGENT - 09/23/2016 2:23 PM EST Problem: Patient [...] with assist, home with home health Lalitha aRdha Cohen [facility] Pager: [phone] Inpatient Physical Therapy Patient status, treatment interventions, and goals discussed with student. I am in agreement with all details and associated flowsheet rows as documented and was present for all aspects of the patient treatment session. Nery Jaramillo PTA Pager [phone] Problem: Acute Rehab Services Goal & Intervention Plan Goal: Bed Mobility Goal Stand Alone Therapy Goal Outcome: Ongoing (Interventions Implemented as Appropriate) 09/22/16161009/23/161411 Bed Mobility Goal Bed Mobility Goal, Time to Achieve 4 days -- Bed Mobility Goal, Activity Type scoot/bridge;supine to sit/sit to supine -- Bed Mobility Goal, [place] Level independent -- Bed Mobility Goal, Additional [...] Achieve 4 days -- Gait Training Goal, [place] Level independent -- Gait Training Goal, Distance [...] days -- Transfer Training Goal, Activity Type drn-go-bnruu/rfrys-or-nqe;cda-dg-yxpbr/scqhc-up-hzb -- Transfer Train Goal, [place] Level independent -- Transfer Training Goal, Additional Goal abides sternal precautions -- Transfer Training Goal, Outcome -- goal met * Consult Note - Jana Crenshaw RN - 09/23/2016 9:41 AM EST [facility] CARDI[facility]ILITATION Purnima Thacker was seen today regarding participation in the outpatient Phase 2 Cardiac Rehabilitation at [facility]. The patient agrees to a referral [...] Another Service: (cardiac rehab) NICOLE HERNANDEZ, PT Pager:[phone] Inpatient Physical Therapy Problem: Acute Rehab Services Goal & Intervention Plan Goal: Bed Mobility Goal Stand Alone Therapy Goal Outcome: Ongoing (Interventions Implemented as Appropriate) 09/22/16 1611 Bed Mobility Goal Bed Mobility Goal, Time to Achieve 4 days Bed Mobility Goal, Activity Type scoot/bridge;supine to sit/sit to supine Bed Mobility Goal, [place] Level independent Bed Mobility Goal, Additional Goal able to abide sternal precautions during transfers Goal: Gait Training Goal Stand Alone Therapy Goal Outcome: Ongoing (Interventions Implemented as Appropriate) 09/22/16 1611 Gait Training Goal Gait Training Goal, Date Established 09/22/16 Gait Training Goal, Time to Achieve 4 days Gait Training Goal, [place] Level independent Gait Training Goal, Distance to Achieve ascend and descends 2 steps independently Goal: Goal Transfer Training Stand Alone Therapy Goal Outcome: Ongoing (Interventions Implemented as Appropriate) 09/22/16 1611 Goal Transfer Training Transfer Training Goal, Time to Achieve 4 days Transfer Training Goal, Activity Type gwr-ul-pdbwt/rixls-mj-jmt;xsz-cq-watsj/evuop-zy-nvx Transfer Train Goal, [place] Level independent Transfer Training Goal, Additional Goal [...] of completing AD's at home, chooses her [id number]-zwq, Martha Thacker (home) for her DPOAH, 2nd choice in friend, Nitesh Leroy, [place], [place] Current Coping/Education/Information Needs: patient sitting up [...] close by, Rashad & Raymond, and her qjpool-lj-oqp Martha Thacker who she has chosen to be her DPOAH. Also has a friend Nitesh Leroy who lives in [place], [place], also her DPOAH choice. Behavioral Health History: none on file in [facility] Substance Use/Abuse: none on file in [facility] Other Pertinent/Service Specific Information: none Health/Prescription Coverage: Primary Insurance: [employer] Secondary Insurance: none Prescription Coverage: yes, per patient no issues Preferred Pharmacy: ?? Other: none Primary Care Provider: Deborah Quiroga, AGRICULTURAL APPRAISER [phone] Patient/Caregiver Goals of Treatment: per medical team recommendations at discharge for CT surgery Potential Needs for Transition of Care: Rehab/SNF: TBD Home Health: TBD DME: no Dialysis: no Community Resources: non3 Transportation: ride home with a friend Other: none Anticipated Barriers to Discharge/Special Considerations: none anticipated at this time Plan: patient will need VNA services at discharge. The patient/technical sales representatives has been provided a list of Home Health Agencies/DME vendors which servetheir preferred geographic area. A letter describing our affiliations was reviewed with them and they were educated about their right to choose where referrals are placed. Patient requests referral to: [facility] PHONE: [phone] FAX: [phone] Expected date of discharge: Fri/Sat? CM called VNA to confirm referral, talked with VALDO Bunn/intake who stated she was familiar w/patient & would monitor her progress through curaspan. Referral routed to the [facility] for matching with agency/vendor and to provide any required information. A member of the Care Management team will continue to monitor progress, follow for continuity of care and assist with transition of care planning. Amanda Moreno RN Pager: [phone] * Op Note - Alirio Esparza MD - 09/21/2016 12:53 PM EST 09/23/2016 Purnima Thacker 1955 [id number] Preoperative Diagnosis: Symptomatic aortic stenosis Postoperative Diagnosis: Symptomatic aortic stenosis Procedure: Aortic valve replacement: Bovine Pericardial 25 mm Surgeon: Alirio Esparza M.D. Tucking Machine Operator: Philip BALL Anesthesia: General endotracheal [...] applied. The patient was transported to the [facility] on levo. All counts were [...] Operative Note Patient Name: Purnima Thacker : [id number] MR#: [id number] Case Date: 09/21/2016 Surgeon: Surgeon(s) and Role: * Alirio Esparza MD - Primary * Nico Palacios PA - Physician Tucking Machine Operator Preoperative diagnosis: Postoperative diagnosis: Procedure(s) [...] AM EST Office [place] [address] Magdalena Peralta MD [facility] DR [place] [address] 03/01/2025 4:15 PM EDT Office Visit Dermatology at [place] [address] [place] [address] Marek Bonilla MD [address], [place] [address] Scheduled Orders Name Type Priority Associated Diagnoses [...] IMPLANTABLE DEVICES SCAN 09/26/2016 12:00 AM EST SQL ANALYST SCAN 09/26/2016 12:00 AM EST POTASSIUM Routine [...] Routine 09/22/2016 4:00 AM EST CARDIAC ENZYMES ([facility]) Routine 09/22/2016 4:00 AM EST CREATININE Routine [...] SCAN EXT O RDR/RSLT * SCAN DOC: SQL ANALYST (09/26/2016 12:00 AM EST) Anatomical Region Laterality Modality Other Narrative 09/26/2016 12:00 AM EST Ordered by an unspecified provider. Scanning Provider MEDIA MGR SCAN EXT O RDR/RSLT * Potassium (09/25/2016 4:32 AM EST) Pathologist [facility] Potassium 4.4 3.5 - 5.0 mmol/L ST. [...] MD CHEMISTRY ORDERABLE S Performing Organization Address City/State/[facility] Co de Phone Number [facility] [place] [address] * (ABNORMAL) Differential, Automated (09/24/2016 9:56 AM EST) Pathologist [facility] Neutrophil % 76.8 % [facility] Neutrophil Absolute 7.79(H) 1.70 - 6.10 x10(3)/mc L [facility] Lymph % 11.1 % [facility] Lymphocytes Abs 1.1 0.9 - 3.2 x10(3)/mc L [facility] Monocyte % 8.5 % [facility] Monocyte Abs 0.9 0.3 - 0.9 x10(3)/mc L [facility] Eos % 0.5 % [facility] Eosinophils Abs 0.0 0.0 - 0.4 x10(3)/mc L [facility] Basophil % 0.2 % [facility] Baso Absolute 0.0 0.0 - 0.1 x10(3)/mc L [facility] Immature Gran % 2.90 % [facility] Comment: Immature granulocytes(IG's)percentage and absolute count will include metamyelocytes, myelocytes, and promyelocytes. Blood smears from CBCs yielding IG's will be scanned manually for concordance. If this scan disagrees with the automated IG or if promyelocytes are noted, a manual differential will be performed. Immature Gran Absolute 0.29(H) 0.00 - 0.04 x10(3)/mc L [facility] Blood specimen (specimen) 09/24/2016 9:56 AM EST 09/24/2016 10:04 AM EST Narrative Resulting Agency Comment Spec In Lab Alirio Esparza MD HEMATOLOGY ORDERABL ES [facility] [place] [address] * (ABNORMAL) Hemogram (09/24/2016 9:56 AM EST) White Blood Cell 10.1(H) 4.0 - 9.5 x10(3)/mc L [facility] Red Blood Cell 2.87(L) 4.00 - 5.21 x10(6)/mc L [facility] Hemoglobin 9.4(L) 11.7 - 15.5 gm/dL [facility] Hematocrit 28.3(L) 35.7 - 45.8 % [facility] Mean Cell Volume 98.6(H) 82.6 - 94.[address] [facility] Mean Cell Hemoglobin 32.8(H) 27.1 - 32.[address] [facility] Mean Cell Hemoglobin Concentration 33.2 31.7 - 35.0 gm/dL [facility] Platelet 141(L) 145 - 357 x10(3)/mc L [facility] RDW Standard Deviation 45.0 37.0 - 46.0 [facility] RDW coefficient of variation 12.6 11.5 - 14.1 % [facility] Mean Platelet Volume 9.4 7.6 - 12.[address] [facility] NRBC% auto 1.1 % [facility] NRBC Absolute 0.110(H) 0.000 - 0.000 x10(3)/mc L [facility] Blood specimen (specimen) 09/24/2016 9:56 AM EST 09/24/2016 10:04 AM EST Narrative Resulting Agency Comment Spec In Lab Alirio Esparza MD HEMATOLOGY ORDERABL ES [facility] [place] [address] * (ABNORMAL) Basic Metabolic Panel (non-fasting) (09/24/2016 9:56 AM EST) Glucose 111 65 - 199 mg/dL [facility] Comment:Diabetes: >=200 mg/d L plus symptoms Blood Urea Nitrogen 23(H) 8 - 18 mg/dL [facility] Comment:result rechecked-ART Creatinine 0.89 0.70 - 1.20 mg/dL [facility] Comment: Please note that the pediatric reference intervals supplied above were not validated at [facility]. Results from pediatric patients should be interpreted in conjunction to the patient's age, height and muscle mass. Sodium 138 135 - 145 mmol/L ST. [...] questions. Chloride 98 98 - 107 mmol/L [facility] Carbon Dioxide 26 22 - 31 mmol/L [facility] Anion Gap 14 5 - 15 mmol/L [facility] Calcium 9.1 8.5 - 10.5 mg/dL [facility] Est Glomerular Filtration Rate >60 >=60 [facility] [...] the following links into your internet browser. [email or web address] Blood specimen (specimen) 09/24/2016 9:56 AM EST 09/24/2016 10:04 AM EST Narrative Resulting Agency Comment Spec In Lab Alirio Esparza MD CHEMISTRY ORDERABLE S [facility] [place] [id number] * XR Chest PA & Lateral (Generic) [...] EST) Potassium 4.5 3.5 - 5.0 mmol/L ST. [...] MD CHEMISTRY ORDERABLE S Performing Organization Address City/[facility]/ZIP Co de Phone Number [facility] [place] [address] * POCT Glucose (09/22/2016 8:17 AM EST) Glucose, POC 131 65 - 199 mg/dL [facility] Comment: Supplemental ranges: <140 mg/dL before meals <180 mg/dL all other times of the day Blood specimen (specimen) 09/22/2016 8:17 AM EST 09/22/2016 8:17 AM EST Alirio Esparza MD POINT OF CARE TEST ORDERABLES Performing Organization Address [facility] Co de Phone Number [facility] [place] [address] * POCT Glucose (09/22/2016 4:01 AM EST) Glucose, POC 135 65 - 199 mg/dL [facility] Comment: Supplemental ranges: <140 mg/dL before meals <180 mg/dL all other times of the day Blood specimen (specimen) 09/22/2016 4:01 AM EST 09/22/2016 4:01 AM EST Alirio Esparza MD POINT OF CARE TEST ORDERABLES Performing Organization Address City/[facility]/ZIP Co de Phone Number [facility] [place] [address] * Scan, Peripheral Blood (09/22/2016 4:00 AM EST) Pathologist [facility] Plat estimate Normal [facility] RBC Morphology Abnormal [facility] Macrocyte 1-5 /HPF [facility] Plat, Giant Less than 1 /HPF [facility] Blood specimen (specimen) 09/22/2016 4:00 AM EST 09/22/2016 4:34 AM EST Narrative Resulting Agency Comment Spec In Lab Alirio Esparza MD HEMATOLOGY ORDERABL ES [facility] [place] [address] * Electrolytes panel (09/22/2016 4:00 AM EST) [facility] Sodium 145 135 - 145 mmol/L [facility] Potassium 4.4 3.5 - 5.0 mmol/L [facility] Comment: Please note: ??Patients with WBC >100,000 may have falsely elevated Potassium levels. ??For accurate Potassium quantification in these patients send serum separator tube (gold top) for subsequent determinations. ??Contact the Clinical Chemistry Laboratory if there are any questions. Chloride 107 98 - 107 mmol/L [facility] Carbon Dioxide 24 22 - 31 mmol/L [facility] Anion Gap 14 5 - 15 mmol/L [facility] Blood specimen (specimen) Venous Draw / Unknown 09/22/2016 4:00 AM EST 09/22/2016 4:34 AM EST Narrative Resulting Agency Comment Spec In Lab Alirio Esparza MD CHEMISTRY ORDERABLE S [facility] [place] [address] * (ABNORMAL) Differential, Automated (09/22/2016 4:00 AM EST) Pathologist [facility] Neutrophil % 70.9 % [facility] Neutrophil Absolute 5.33 1.70 - 6.10 x10(3)/mc L [facility] Lymph % 9.1 % [facility] Lymphocytes Abs 0.7(L) 0.9 - 3.2 x10(3)/[facility] Monocyte % 18.0 % [facility] Monocyte Abs 1.4(H) 0.3 - 0.9 x10(3)/[facility] Eos % 0.0 % [facility] Eosinophils Abs 0.0 0.0 - 0.4 x10(3)/[facility] Basophil % 0.1 % [facility] Baso Absolute 0.0 0.0 - 0.1 x10(3)/[facility] LABORATORY Immature Gran % 1.90 % [facility] Comment: Immature granulocytes(IG's)percentage and absolute count will include metamyelocytes, myelocytes, and promyelocytes. Blood smears from CBCs yielding IG's will be scanned manually for concordance. If this scan disagrees with the automated IG or if promyelocytes are noted, a manual differential will be performed. Immature Gran Absolute 0.14(H) 0.00 - 0.04 x10(3)/[facility] LABORATORY Blood specimen (specimen) 09/22/2016 4:00 AM EST 09/22/2016 4:34 AM EST Narrative Resulting Agency Comment Spec In Lab Alirio Esparza MD HEMATOLOGY ORDERABL ES [facility] [place] [address] * (ABNORMAL) Hemogram (09/22/2016 4:00 AM EST) White Blood Cell 7.5 4.0 - 9.5 x10(3)/[facility] LABORATORY Red Blood Cell 2.93(L) 4.00 - 5.21 x10(6)/[facility] Hemoglobin 9.2(L) 11.7 - 15.5 gm/dL [facility] Hematocrit 28.0(L) 35.7 - 45.8 % [facility] Mean Cell Volume 95.6(H) 82.6 - 94.[address] [facility] Mean Cell Hemoglobin 31.4 27.1 - 32.[address] [facility] Mean Cell Hemoglobin Concentration 32.9 31.7 - 35.0 gm/dL [facility] Platelet 161 145 - 357 x10(3)/mc L [facility] RDW Standard Deviation 44.0 37.0 - 46.[address] [facility] RDW coefficient of variation 12.6 11.5 - 14.1 % [facility] Mean Platelet Volume 9.3 7.6 - 12.[address] [facility] NRBC% auto 0.3 % [facility] NRBC Absolute 0.020(H) 0.000 - 0.000 x10(3)/mc L [facility] Blood specimen (specimen) 09/22/2016 4:00 AM EST 09/22/2016 4:34 AM EST Narrative Resulting Agency Comment Spec In Lab Alirio Esparza MD HEMATOLOGY ORDERABL ES [facility] [place] [address] * (ABNORMAL) Cardiac Enzymes (09/22/2016 4:00 AM EST) Troponin-T 0.13(H) <=0.03 ng/mL [facility] Comment: 0.03 ng/mL: Represents the 99th percentile upper reference limit for normals. >0.03 ng/mL: Elevated cardiac troponin T level indicative of myocardial damage. Diagnosis of acute, evolving or recent PA requires a typical rise and gradual fall [...] consensus document of the Joint Society of Cardiology/[place] College of Cardiology Committee for the redefinition of myocardial infarction. ??Journal of the [place] College of Cardiology 2000; 36: 959-969] Creatine Kinase 338(H) 0 - 160 unit/L [facility] Blood specimen (specimen) 09/22/2016 4:00 AM EST 09/22/2016 4:34 AM EST Narrative Resulting Agency Comment Spec In Lab Alirio Esparza MD CHEMISTRY ORDERABLE S Performing Organization Address [facility] Co de Phone Number [facility] [place] [address] * (ABNORMAL) Glucose, fasting (09/22/2016 4:00 AM EST) Glucose Fasting 137(H) 65 - 99 mg/dL [facility] Comment: ?Fasting* Glucose Interpretive Criteria [...] of Diabetes Mellitus, Position Statement from the [place] Diabetes Association. ??Diabetes Care, Volume 33, Supplement 1, Aug 2009 Blood specimen (specimen) 09/22/2016 4:00 AM EST 09/22/2016 4:34 AM EST Narrative Resulting Agency Comment Spec In Lab Alirio Esparza MD CHEMISTRY ORDERABLE S Performing Organization Address [facility] Co de Phone Number [facility] [place] [address] * (ABNORMAL) Creatinine (09/22/2016 4:00 AM EST) Creatinine 0.69(L) 0.70 - 1.20 mg/dL [facility] Comment: Please note that the pediatric reference intervals supplied above were not validated at [facility]. Results from pediatric patients should be interpreted in conjunction to the patient's age, height and muscle mass. Est Glomerular Filtration Rate >60 >=60 [facility] [...] the following links into your internet browser. [email or web address] Blood specimen (specimen) 09/22/2016 4:00 AM EST 09/22/2016 4:34 AM EST Narrative Resulting Agency Comment Spec In Lab Alirio Esparza MD CHEMISTRY ORDERABLE S Performing Organization Address [facility] Co de Phone Number [facility] [place] [address] * BUN (09/22/2016 4:00 AM EST) [facility] Blood Urea Nitrogen 10 8 - 18 mg/dL [facility] Blood specimen (specimen) 09/22/2016 4:00 AM EST 09/22/2016 4:34 AM EST Narrative Resulting Agency Comment Spec In Lab Alirio Esparza MD CHEMISTRY ORDERABLE S Performing Organization Address [facility] Co de Phone Number [facility] [place] [address] * POCT Glucose (09/21/2016 9:59 PM EST) Glucose, POC 146 65 - 199 mg/dL [facility] Comment: Supplemental ranges: <140 mg/dL before meals <180 mg/dL all other times of the day Blood specimen (specimen) 09/21/2016 9:59 PM EST 09/21/2016 9:59 PM EST Alirio Esparza MD POINT OF CARE TEST ORDERABLES Performing Organization Address City/[facility]/ZIP Co de Phone Number [facility] [place] [address] * POCT Glucose (09/21/2016 7:26 PM EST) Glucose, POC 152 65 - 199 mg/dL [facility] Comment: Supplemental ranges: <140 mg/dL before meals <180 mg/dL all other times of the day Blood specimen (specimen) 09/21/2016 7:26 PM EST 09/21/2016 7:26 PM EST Alirio Esparza MD POINT OF CARE TEST ORDERABLES Performing Organization Address [facility] Co de Phone Number [facility] [place] [address] * POCT Glucose (09/21/2016 6:00 PM EST) Glucose, POC 146 65 - 199 mg/dL [facility] Comment: Supplemental ranges: <140 mg/dL before meals <180 mg/dL all other times of the day Blood specimen (specimen) 09/21/2016 6:00 PM EST 09/21/2016 6:00 PM EST Alirio Esparza MD POINT OF CARE TEST ORDERABLES Performing Organization Address City/[facility] Co de Phone Number [facility] [place] [address] * (ABNORMAL) BLOOD GAS 2 ARTERIAL (09/21/2016 4:42 PM EST) pH, Arterial 7.35(L) 7.35 - 7.45 [facility] PCO2, Arterial 48(H) 35 - [address] [facility] PO2, Arterial 108(H) 85 - [address] [facility] Bicarbonate, Arterial 26.0 20.0 - 26.0 mmol/L [facility] Base Excess, Arterial 0.5 -3.0 - 3.0 mmol/L [facility] Hgb Blood Gas 10.4(L) 11.7 - 15.5 gm/dL [facility] Oxyhemoglobin, Arterial 96.2 94.0 - 97.0 % [facility] Carboxyhemoglob in, Arterial 0.0 % [facility] Comment: Nonsmokers: 0.5-1.5% COHB Smokers: Variable, but usually less than 10% Toxic: 20-30% COHB Lethal: Greater than 60% COHB Methemoglobin, Arterial 0.7 <=1.5 % [facility] Na Whole Blood 139 135 - 145 mmol/L [facility] [...] Whole Blood 106 98 - 107 mmol/L [facility] Gluc Whole Bld 147 65 - 199 mg/dL [facility] Comment:Diabetes: >=200 mg/d L plus symptoms. Lactate WB 1.2 0.5 - 2.2 mmol/L [facility] FIO2 Art 40 % [facility] PF Ratio Art 270 [facility] Blood specimen (specimen) 09/21/2016 4:42 PM EST 09/21/2016 4:42 PM EST Alirio Esparza MD POINT OF CARE TEST ORDERABLES Performing Organization Address City/State/[facility] Co de Phone Number [facility] [place] [address] * POCT Glucose (09/21/2016 4:07 PM EST) Glucose, POC 150 65 - 199 mg/dL [facility] Comment: Supplemental ranges: <140 mg/dL before meals <180 mg/dL all other times of the day Blood specimen (specimen) 09/21/2016 4:07 PM EST 09/21/2016 4:07 PM EST Alirio Esparza MD POINT OF CARE TEST ORDERABLES Performing Organization Address [facility] Phone Number [facility] [place] [address] * (ABNORMAL) Hemoglobin (09/21/2016 4:05 PM EST) [facility] Hemoglobin 9.9(L) 11.7 - 15.5 gm/dL [facility] Blood specimen (specimen) 09/21/2016 4:05 PM EST 09/21/2016 4:20 PM EST Narrative Resulting Agency Comment Spec In Lab Alirio Esparza MD HEMATOLOGY ORDERABL ES Performing Organization Address [facility] Phone Number [facility] [place] [address] * Potassium (09/21/2016 4:05 PM EST) [facility] Potassium 4.6 3.5 - 5.0 mmol/L ST. [...] MD CHEMISTRY ORDERABLE S Performing Organization Address City/[facility]/ZIP Co de Phone Number [facility] [place] [address] * POCT Glucose (09/21/2016 2:52 PM EST) Glucose, POC 117 65 - 199 mg/dL [facility] Comment: Supplemental ranges: <140 mg/dL before meals <180 mg/dL all other times of the day Blood specimen (specimen) 09/21/2016 2:52 PM EST 09/21/2016 2:52 PM EST Alirio Esparza MD POINT OF CARE TEST ORDERABLES Performing Organization Address [facility] Co de Phone Number [facility] [place] [address] * POCT Glucose (09/21/2016 1:51 PM EST) Glucose, POC 108 65 - 199 mg/dL [facility] Comment: Supplemental ranges: <140 mg/dL before meals <180 mg/dL all other times of the day Blood specimen (specimen) 09/21/2016 1:51 PM EST 09/21/2016 1:51 PM EST Alirio Esparza MD POINT OF CARE TEST ORDERABLES Performing Organization Address [facility] Co de Phone Number [facility] [place] [address] * POCT Glucose (09/21/2016 12:54 PM EST) Glucose, POC 128 65 - 199 mg/dL [facility] Comment: Supplemental ranges: <140 mg/dL before meals <180 mg/dL all other times of the day Blood specimen (specimen) 09/21/2016 12:54 PM EST 09/21/2016 12:54 PM EST Alirio Esparza MD POINT OF CARE TEST ORDERABLES Performing Organization Address City/[facility]/ZIP Co de Phone Number [facility] [place] [address] * EKG 12 Lead (09/21/2016 12:26 PM EST) Ventricular rate 87 BPM MUSE SYSTEM Atrial Rate 87 BPM MUSE SYSTEM P-R Interval 256 ms MUSE SYSTEM QRS Duration 90 ms MUSE SYSTEM Q-T Interval 406 ms MUSE SYSTEM QTC Calculated (Bezet) 488 ms MUSE SYSTEM Calculated P [place] 24 degrees MUSE SYSTEM Calculated R [place] 21 degrees MUSE SYSTEM Calculated T [place] -5 degrees MUSE SYSTEM INTERPRETATION Sinus rhythm with 1st degree A-V block Nonspecific T wave abnormality Prolonged QT Abnormal ECG When compared with ECG of 19-MAY-2016 11:43, DE interval has increased T wave inversion now [...] course of the esophagus and below the [id number]. There is a right IJ PA catheter [...] the course of theesophagus and below the [id number]. There is a right IJ PA catheter [...] EST) pH, Arterial 7.41 7.35 - 7.45 [facility] PCO2, Arterial 42 35 - [address] [facility] PO2, Arterial 356(H) 85 - [address] [facility] Bicarbonate, Arterial 26.2(H) 20.0 - 26.0 mmol/L [facility] Base Excess, Arterial 1.6 -3.0 - 3.0 mmol/L [facility] Hgb Blood Gas 10.7(L) 11.7 - 15.5 gm/dL [facility] Oxyhemoglobin, Arterial 98.1(H) 94.0 - 97.0 % [facility] Carboxyhemoglob in, Arterial 0.3 % [facility] Comment: Nonsmokers: 0.5-1.5% COHB Smokers: Variable, but usually less than 10% Toxic: 20-30% COHB Lethal: Greater than 60% COHB Methemoglobin, Arterial 0.8 <=1.5 % [facility] Na Whole Blood 140 135 - 145 mmol/L [facility] K Whole Blood 3.8 3.5 - 5.0 mmol/L [facility] Comment: Please note: Patients with WBC >100,000 may have falsely elevated Potassium levels. Contact the Clinical Chemistry Laboratory if there are any questions. ICa Whole Blood 1.15(L) 1.15 - 1.33 mmol/L [facility] Comment: Note: ??Total bilirubin higher than 20 mg/dL may lead to falsely low ionized calcium. CL Whole Blood 106 98 - 107 mmol/L [facility] Gluc Whole Bld 135 65 - 199 mg/dL [facility] Comment:Diabetes: >=200 mg/d L plus symptoms. Lactate WB 2.2 0.5 - 2.2 mmol/L [facility] FIO2 Art 100 % [facility] PF Ratio Art 356 [facility] Blood specimen (specimen) 09/21/2016 12:20 PM EST 09/21/2016 12:20 PM EST Alirio Esparza MD POINT OF CARE TEST ORDERABLES Performing Organization Address City/State/[facility] Co va Phone Number [facility] [place] [address] * (ABNORMAL) BLOOD GAS 2 ARTERIAL (09/21/2016 10:54 AM EST) pH, Arterial 7.43 7.35 - 7.45 [facility] PCO2, Arterial 40 35 - [address] [facility] PO2, Arterial 297(H) 85 - [address] [facility] Bicarbonate, Arterial 26.0 20.0 - 26.0 mmol/L [facility] Base Excess, Arterial 1.6 -3.0 - 3.0 mmol/L [facility] Hgb Blood Gas 8.6(L) 11.7 - 15.5 gm/dL [facility] Oxyhemoglobin, Arterial 98.6(H) 94.0 - 97.0 % [facility] Carboxyhemoglob in, Arterial 0.5 % [facility] Comment: Nonsmokers: 0.5-1.5% COHB Smokers: Variable, but usually less than 10% Toxic: 20-30% COHB Lethal: Greater than 60% COHB Methemoglobin, Arterial 0.3 <=1.5 % [facility] Na Whole Blood 134(L) 135 - 145 mmol/L [facility] K Whole Blood 4.5 3.5 - 5.0 mmol/L [facility] Comment: Please note: Patients with WBC >100,000 may have falsely elevated Potassium levels. Contact the Clinical Chemistry Laboratory if there are any questions. ICa Whole Blood 1.16 1.15 - 1.33 mmol/L [facility] Comment: Note: ??Total bilirubin higher than 20 mg/dL may lead to falsely low ionized calcium. CL Whole Blood 104 98 - 107 mmol/L [facility] Gluc Whole Bld 240(H) 65 - 199 mg/dL [facility] Comment:Diabetes: >=200 mg/d L plus symptoms. Lactate WB 2.4(H) 0.5 - 2.2 mmol/L [facility] FIO2 Art 95 % [facility] Flow Art 0.7 LPM [facility] PF Ratio Art 313 [facility] Temp Art 36.7 Celsius [facility] Blood specimen (specimen) 09/21/2016 10:54 AM EST 09/21/2016 10:54 AM EST Alirio Esparza MD POINT OF CARE TEST ORDERABLES Performing Organization Address City/State/[facility] Co de Phone Number [facility] [place] [address] * Thrombin time (09/21/2016 10:50 AM EST) Thrombin Time 19 15 - [address] [facility] Comment: A prolongation in the [...] MD HEMATOLOGY ORDERABLE S Performing Organization Address [facility] Co de Phone Number [facility] [place] [address] * Fibrinogen (09/21/2016 10:50 AM EST) Fibrinogen 228 180 - 510 mg/dL [facility] Comment: Called by: JONNATHAN, Read back by: MICHELLE ALEJANDRE_, Date/Time:09/21/16 11:11. A fibrinogen level >100 mg/dL is adequate for hemostasis in most patients without underlying bleeding disorders. Blood specimen (specimen) 09/21/2016 10:50 AM EST 09/21/2016 10:56 AM EST Narrative Resulting Agency Comment Spec In Lab Luis Enrique Quarles MD HEMATOLOGY ORDERABLE S Performing Organization Address [facility] Co de Phone Number [facility] [place] [address] * APTT (09/21/2016 10:50 AM EST) Partial Thromboplastin Time 32 25 - [address] [facility] Comment: The recommended therapeutic range for full dose, unfractionated heparin at [facility] is 80 ? 114 seconds. The use of the anti-Xa (heparin) level rather than the PTT is recommended for monitoring anticoagulation intensity in critically ill patients receiving unfractionated heparin by continuous IV infusion. Blood specimen (specimen) 09/21/2016 10:50 AM EST 09/21/2016 10:56 AM EST Narrative Resulting Agency Comment Spec In Lab Luis Enrique Quarles MD HEMATOLOGY ORDERABLE S Performing Organization Address City/[facility] Co de Phone Number [facility] [place] [address] * (ABNORMAL) Prothrombin Time (09/21/2016 10:50 AM EST) Prothrombin Time 18.7(H) 12.0 - 15.[address] [facility] Comment: An INR <2.0 indicates [...] International Normalization Ratio 1.5(H) 0.9 - 1.1 [facility] Blood specimen (specimen) 09/21/2016 10:50 AM EST 09/21/2016 10:56 AM EST Narrative Resulting Agency Comment Spec In Lab Luis Enrique Quarles MD HEMATOLOGY ORDERABLE S [facility] [place] [address] * (ABNORMAL) Hemogram (09/21/2016 10:50 AM EST) White Blood Cell 14.7(H) 4.0 - 9.5 x10(3)/mc L [facility] Red Blood Cell 2.40(L) 4.00 - 5.21 x10(6)/mc L [facility] Hemoglobin 7.9(L) 11.7 - 15.5 gm/dL [facility] Hematocrit 23.2(L) 35.7 - 45.8 % [facility] Comment: This result has been called to MICHELLE GRIGSBY by ASHU MORENO on 09 21 2016 at 1102, and has been read back. Mean Cell Volume 96.7(H) 82.6 - 94.[address] [facility] Mean Cell Hemoglobin 32.9(H) 27.1 - 32.[address] [facility] Mean Cell Hemoglobin Concentration 34.1 31.7 - 35.0 gm/dL [facility] Platelet 117(L) 145 - 357 x10(3)/mc L [facility] RDW Standard Deviation 42.6 37.0 - 46.[address] [facility] RDW coefficient of variation 12.1 11.5 - 14.1 % [facility] Mean Platelet Volume 9.2 7.6 - 12.[address] [facility] NRBC% auto 0.1 % [facility] NRBC Absolute 0.020(H) 0.000 - 0.000 x10(3)/mc L [facility] Blood specimen (specimen) 09/21/2016 10:50 AM EST 09/21/2016 10:56 AM EST Narrative Resulting Agency Comment Spec In Lab Luis Enrique Quarles MD HEMATOLOGY ORDERABLE S Performing Organization Address [facility] [place] [address] * Prepare Platelets, Apheresis (09/21/2016 10:30 AM EST) Dispensed? Yes [facility] Blood specimen (specimen) 09/21/2016 10:30 AM EST 09/21/2016 10:28 AM EST Alirio Esparza MD BLOOD BANK PRODUCT ORDERABLES Performing Organization Address [facility] Co de Phone Number [facility] [place] [address] * (ABNORMAL) BLOOD GAS 2 ARTERIAL (09/21/2016 10:05 AM EST) pH, Arterial 7.33(L) 7.35 - 7.45 [facility] PCO2, Arterial 54(Critic al) 35 - [address] [facility] Comment:Noted by electrical instrument technician. PO2, Arterial 218(H) 85 - [address] [facility] Bicarbonate, Arterial 27.9(H) 20.0 - 26.0 mmol/L [facility] Base Excess, Arterial 2.0 -3.0 - 3.0 mmol/L [facility] Hgb Blood Gas 8.6(L) 11.7 - 15.5 gm/dL [facility] Oxyhemoglobin, Arterial 98.4(H) 94.0 - 97.0 % [facility] Carboxyhemoglo bin, Arterial 0.5 % [facility] Comment: Nonsmokers: 0.5-1.5% COHB Smokers: Variable, but usually less than 10% Toxic: 20-30% COHB Lethal: Greater than 60% COHB Methemoglobin, Arterial 0.3 <=1.5 % [facility] Na Whole Blood 129(L) 135 - 145 mmol/L [facility] K Whole Blood 6.2(Criti gabrielle) 3.5 - 5.0 mmol/L [facility] Comment: Noted by electrical instrument technician. Please note: Patients with WBC >100,000 may have falsely elevated Potassium levels. Contact the Clinical Chemistry Laboratory if there are any questions. ICa Whole Blood 0.95(L) 1.15 - 1.33 mmol/L [facility] Comment: Note: ??Total bilirubin higher than 20 mg/dL may lead to falsely low ionized calcium. CL Whole Blood 100 98 - 107 mmol/L [facility] Gluc Whole Bld 289(H) 65 - 199 mg/dL [facility] Comment:Diabetes: >=200 mg/d L plus symptoms. Lactate WB 2.2 0.5 - 2.2 mmol/L [facility] Temp Art 37.0 Celsius [facility] Blood specimen (specimen) 09/21/2016 10:05 AM EST 09/21/2016 10:05 AM EST Alirio Esparza MD POINT OF CARE TEST ORDERABLES [facility] [place] [address] * (ABNORMAL) BLOOD GAS 2 ARTERIAL (09/21/2016 9:44 AM EST) pH, Arterial 7.22(Criti gabrielle) 7.35 - 7.45 [facility] Comment:Noted by electrical instrument technician. PCO2, Arterial 70(Critica l) 35 - [address] [facility] Comment:Noted by electrical instrument technician. PO2, Arterial 224(H) 85 - [address] [facility] Bicarbonate, Arterial 27.8(H) 20.0 - 26.0 mmol/L [facility] Base Excess, Arterial 0.0 -3.0 - 3.0 mmol/L [facility] Hgb Blood Gas 8.7(L) 11.7 - 15.5 gm/dL [facility] Oxyhemoglobin, Arterial 98.5(H) 94.0 - 97.0 % [facility] Carboxyhemoglob in, Arterial 0.6 % [facility] Comment: Nonsmokers: 0.5-1.5% COHB Smokers: Variable, but usually less than 10% Toxic: 20-30% COHB Lethal: Greater than 60% COHB Methemoglobin, Arterial 0.3 <=1.5 % [facility] Na Whole Blood 131(L) 135 - 145 mmol/L [facility] K Whole Blood 5.9(H) 3.5 - 5.0 mmol/L [facility] Comment: Please note: Patients with WBC >100,000 may have falsely elevated Potassium levels. Contact the Clinical Chemistry Laboratory if there are any questions. ICa Whole Blood 1.00(L) 1.15 - 1.33 mmol/L [facility] Comment: Note: ??Total bilirubin higher than 20 mg/dL may lead to falsely low ionized calcium. CL Whole Blood 101 98 - 107 mmol/L [facility] Gluc Whole Bld 227(H) 65 - 199 mg/dL [facility] Comment:Diabetes: >=200 mg/d L plus symptoms. Lactate WB 2.1 0.5 - 2.2 mmol/L [facility] Blood specimen (specimen) 09/21/2016 9:44 AM EST 09/21/2016 9:44 AM EST Alirio Esparza MD POINT OF CARE TEST ORDERABLES [facility] [place] [address] * (ABNORMAL) Hemoglobin (09/21/2016 9:42 AM EST) Hemoglobin 7.2(L) 11.7 - 15.5 gm/dL [facility] Blood specimen (specimen) 09/21/2016 9:42 AM EST 09/21/2016 9:51 AM EST Narrative Resulting Agency Comment Spec In Lab Alirio Esparza MD HEMATOLOGY ORDERABL ES [facility] [place] [address] * Platelet count (09/21/2016 9:42 AM EST) Platelet 159 145 - 357 x10(3)/mc L [facility] Immature Plt % 1.6 0.0 - 7.4 % [facility] Comment: Limitation of the Immature Platelet Fraction (IPF)-May be less reliable when the platelet count is less than 42b930/uL due to statistical imprecision. The IPF value [...] in a decreased state of production. References: [employer] The Clinical Value of the Immature Platelet Fraction (IPF) in Cell Recovery Document Number [id number] 12/2010 [employer] The Role of the Immature Platelet Fraction (IPF) in the Differential Diagnosis of Thrombocytopenia, Document [id number] V05/12/14 P05/14 Blood specimen (specimen) 09/21/2016 9:42 AM EST 09/21/2016 9:51 AM EST Narrative Resulting Agency Comment Spec In Lab Alirio Esparza MD HEMATOLOGY ORDERABL ES Performing Organization Address [facility] Co de Phone Number [facility] [place] [address] * (ABNORMAL) Hematocrit (09/21/2016 9:42 AM EST) Hematocrit 21.6(L) 35.7 - 45.8 % [facility] Comment: This result has been called to MICHELLE ALEJANDRE by Serjio Frazier on 09 21 2016 at 0957, and has been read back. Blood specimen (specimen) 09/21/2016 9:42 AM EST 09/21/2016 9:51 AM EST Narrative Resulting Agency Comment Spec In Lab Alirio Esparza MD HEMATOLOGY ORDERABL ES Performing Organization Address [facility] de Phone Number [facility] [place] [address] * Fibrinogen (09/21/2016 9:42 AM EST) Fibrinogen 219 180 - 510 mg/dL [facility] Comment: Called by: JONNATHAN, Read back by: MICHELLE ALEJANDRE_, Date/Time:09/21/16 10:03_. A fibrinogen level >100 mg/dL is adequate for hemostasis in most patients without underlying bleeding disorders. Blood specimen (specimen) 09/21/2016 9:42 AM EST 09/21/2016 9:51 AM EST Narrative Resulting Agency Comment Spec In Lab Alirio Esparza MD HEMATOLOGY ORDERABL ES Performing Organization Address [facility] Co de Phone Number [facility] [place] [address] * (ABNORMAL) BLOOD GAS 2 ARTERIAL (09/21/2016 9:10 AM EST) pH, Arterial 7.36 7.35 - 7.45 [facility] PCO2, Arterial 48(H) 35 - [address] [facility] PO2, Arterial 295(H) 85 - [address] [facility] Bicarbonate, Arterial 26.0 20.0 - 26.0 mmol/L [facility] Base Excess, Arterial 0.5 -3.0 - 3.0 mmol/L [facility] Hgb Blood Gas 8.0(L) 11.7 - 15.5 gm/dL [facility] Oxyhemoglobin, Arterial 98.3(H) 94.0 - 97.0 % [facility] Carboxyhemoglob in, Arterial 1.0 % [facility] Comment: Nonsmokers: 0.5-1.5% COHB Smokers: Variable, but usually less than 10% Toxic: 20-30% COHB Lethal: Greater than 60% COHB Methemoglobin, Arterial 0.3 <=1.5 % [facility] Na Whole Blood 135 135 - 145 mmol/L [facility] K Whole Blood 5.4(H) 3.5 - 5.0 mmol/L [facility] Comment: Please note: Patients with WBC >100,000 may have falsely elevated Potassium levels. Contact the Clinical Chemistry Laboratory if there are any questions. ICa Whole Blood 0.93(L) 1.15 - 1.33 mmol/L [facility] Comment: Note: ??Total bilirubin higher than 20 mg/dL may lead to falsely low ionized calcium. CL Whole Blood 102 98 - 107 mmol/L [facility] Gluc Whole Bld 195 65 - 199 mg/dL [facility] Comment:Diabetes: >=200 mg/d L plus symptoms. Lactate WB 1.8 0.5 - 2.2 mmol/L [facility] Temp Art 37.0 Celsius [facility] Blood specimen (specimen) 09/21/2016 9:10 AM EST 09/21/2016 9:10 AM EST Alirio Esparza MD POINT OF CARE TEST [place] [address] * Surgical Pathology Report (09/21/2016 9:09 AM EST) Final Diagnosis [id number] ?Location: 3T The signing pathologist has (i) [...] ?. (R1) ??ADELITA 09/24/2016 9:[address] [facility] AORTIC STRUCTURE / Unknown 09/21/2016 9:09 AM EST 09/21/2016 9:09 AM EST Alirio Esparza MD PATHOLOGY/[place] [address] * Specimen to Pathology (surgical or derm) (09/21/2016 9:09 AM EST) AP Specimen 09/21/2016 9:09 AM EST 09/21/2016 9:[address] [facility] - 09/21/2016 9:09 AM EST Specimen requisition ordered. ??Separate Pathology report to follow Alirio Esparza MD PATHOLOGY/CYTOLOGY ORDERABLES [facility] [place] [address] * (ABNORMAL) BLOOD GAS 2 ARTERIAL (09/21/2016 8:50 AM EST) pH, Arterial 7.41 7.35 - 7.45 [facility] PCO2, Arterial 33(L) 35 - [address] [facility] PO2, Arterial 348(H) 85 - [address] [facility] Bicarbonate, Arterial 20.6 20.0 - 26.0 mmol/L [facility] Base Excess, Arterial -4.1(L) -3.0 - 3.0 mmol/L [facility] Hgb Blood Gas 9.5(L) 11.7 - 15.5 gm/dL [facility] Oxyhemoglobin, Arterial 98.8(H) 94.0 - 97.0 % [facility] Carboxyhemoglob in, Arterial 0.3 % [facility] Comment: Nonsmokers: 0.5-1.5% COHB Smokers: Variable, but usually less than 10% Toxic: 20-30% COHB Lethal: Greater than 60% COHB Methemoglobin, Arterial 0.3 <=1.5 % [facility] Na Whole Blood 137 135 - 145 mmol/L [facility] K Whole Blood 4.0 3.5 - 5.0 mmol/L [facility] [...] Whole Blood 105 98 - 107 mmol/L [facility] Gluc Whole Bld 93 65 - 199 mg/dL [facility] Comment:Diabetes: >=200 mg/d L plus symptoms. Lactate WB 1.0 0.5 - 2.2 mmol/L [facility] Blood specimen (specimen) 09/21/2016 8:50 AM EST 09/21/2016 8:50 AM EST Alirio Esparza MD POINT OF CARE TEST ORDERABLES [facility] [place] [address] * (ABNORMAL) BLOOD GAS 2 ARTERIAL (09/21/2016 8:18 AM EST) pH, Arterial 7.42 7.35 - 7.45 [facility] PCO2, Arterial 36 35 - [address] [facility] PO2, Arterial 283(H) 85 - [address] [facility] Bicarbonate, Arterial 22.8 20.0 - 26.0 mmol/L [facility] Base Excess, Arterial -2.0 -3.0 - 3.0 mmol/L [facility] Hgb Blood Gas 12.6 11.7 - 15.5 gm/dL [facility] Oxyhemoglobin, Arterial 99.0(H) 94.0 - 97.0 % [facility] Carboxyhemoglob in, Arterial 0.6 % [facility] Comment: Nonsmokers: 0.5-1.5% COHB Smokers: Variable, but usually less than 10% Toxic: 20-30% COHB Lethal: Greater than 60% COHB Methemoglobin, Arterial 0.0 <=1.5 % [facility] Na Whole Blood 144 135 - 145 mmol/L [facility] K Whole Blood 4.0 3.5 - 5.0 mmol/L [facility] Comment: Please note: Patients with WBC >100,000 may have falsely elevated Potassium levels. Contact the Clinical Chemistry Laboratory if there are any questions. ICa Whole Blood 1.22 1.15 - 1.33 mmol/L [facility] Comment: Note: ??Total bilirubin higher than 20 mg/dL may lead to falsely low ionized calcium. CL Whole Blood 106 98 - 107 mmol/L [facility] Gluc Whole Bld 102 65 - 199 mg/dL [facility] Comment:Diabetes: >=200 mg/d L plus symptoms. Lactate WB 1.2 0.5 - 2.2 mmol/L [facility] FIO2 Art 95 % [facility] Flow Art 1.1 LPM [facility] PF Ratio Art 298 [facility] Temp Art 35.6 Celsius [facility] Blood specimen (specimen) 09/21/2016 8:18 AM EST 09/21/2016 8:18 AM EST Alirio Esparza MD POINT OF CARE TEST ORDERABLES Performing Organization Address City/[facility]/ZIP Co de Phone Number [facility] [place] [address] * Prepare RBC (09/21/2016 7:05 AM EST) Dispensed? Yes [facility] Blood specimen (specimen) 09/21/2016 7:05 AM EST 09/21/2016 7:02 AM EST Alirio Esparza MD BLOOD BANK PRODUCT ORDERABLES Performing Organization Address City/[facility]/ZIP Co de Phone Number [facility] [place] [address] * POCT Glucose (09/21/2016 6:42 AM EST) Glucose, POC 104 65 - 199 mg/dL [facility] Comment: Supplemental ranges: <140 mg/dL before meals <180 mg/dL all other times of the day Blood specimen (specimen) 09/21/2016 6:42 AM EST 09/21/2016 6:42 AM EST Alirio Esparza MD POINT [place] [address] documented in this encounter Visit Diagnoses Not [...] dose on Wed09/21/16 at 1230, Until Discontinued, [place] teeth, Routine Given 09/25/2016 9:40 AM EST [...] at 0600)1600 (Due - Provider: Kendall Martínez [facility]) aspirin chewable tablet 81 mg(Linked Group [...] RN) 0829 (See Alternative - Provider: Marek Barnes, RN) 0942 (See Alternative - Provider: Joselyn [...] dose on Wed09/21/16 at 1230, Until Discontinued, [place] teeth, Routine 0900 (Not Given - Provider: Elsa Miguel RN - Reason: Patient/family refused)2019 (Given - Provider: Federico Apple, VALDO) 0900 (Not Given - Provider: Marek Barnes, VALDO - Reason: Patient/family refused)2100 (Not Given - [...] RN)1708 (Given - Provider: Federico Apple, VALDO) 0826 [...] Hold for HR<60. Hold for SP<90, Routine 0817 (Given - Provider: Elsa Miguel RN) meTOPROLOL tartrate (LOPRESSOR) tablet 25 mg 25 mg, Oral, EVERY 12 HOURS SCHEDULED (2 times per day), First dose (after last modification) on Wed09/23/16 at 2100, Until Discontinued, Hold for HR<60. Hold for SP<90, Routine 2017 (Given - Provider: Federico Apple, VALDO) 08 (Given - Provider: Marek Barnes, RN)2042 (Given - Provider: Alie Whitfield, VALDO) 09 (Given - Provider: Joselyn Caceres, VALDO) pantoprazole (PROTONIX) injection 40 mg(Linked Group 2) 40 mg, Intravenous, DAILY, First dose on Wed09/21/16 at 1230, Until Discontinued, Reconstitute with 10 mL of normal saline to a concentration of 4 mg/mL and infuse slowly over 2 minutes. , Routine 08 (See Alternative - Provider: Elsa Miguel RN) 08 (See Alternative - Provider: Marek Barnes, VALDO) 09 (See Alternative - Provider: Joselyn Caceres, VALDO) pantoprazole (PROTONIX) tablet 40 mg(Linked Group 2) 40 mg, Oral, DAILY, First dose on Wed09/21/16 at 1230, Until Discontinued, DO NOT CRUSH OR OPEN If unable to take PO, may give IV 08 (Given - Provider: Elsa Miguel RN) 08 (Given - Provider: Marek Barnes, VALDO) 09 (Given - Provider: Joselyn Caceres, VALDO) potassium chloride (K-DUR/KLOR-CON) extended release tablet 10 mEq 10 mEq, Oral, DAILY, 7 doses, First dose on Wed09/26/16 at 0900, Last dose on Wed10/02/16 at 0900, Routine senna-docusate (PERICOLACE) 8.6-50 mg per tablet 2 tablet 2 tablet, Oral, DAILY, First dose on Wed09/22/16 at 2100, Until Discontinued, Post-op day 1, Routine 2099 (Not Given - Provider: Federico Apple RN - Reason: Patient/family refused) 2099 (Not Given - Provider: Alie Whitfield RN [...] in shift)1100 (Given - Provider: Marek Barnes RN)204 (Given - Provider: Alie Whitfield RN) 0300 (Given - Provider: Alie Whitfield RN - Comment: given earlier in shift)1100 (Not Given - Provider: Joselyn Caceres RN - Reason: See comment - Comment: given with AM lasix) PRN Medication Order 09/23/2016 09/24/2016 09/25/2016 bisacodyl (DULCOLAX) suppository 10 mg 10 mg, Rectal, DAILY PRN, Starting on Marquita 09/24/16 at 0000, Until Wed09/25/16 at 1834, Constipation, Starting post-op day 3., Routine hydrALAZINE (APRESOLINE) injection 10 mg (CANCELED) 10 mg, Intravenous, EVERY 4 HOURS PRN, Starting on Tu09/22/16 at 0832, Until Wed09/23/16 at 1025, High [...] Routine documented in this encounter Care Teams Voltmeter Operator Relationship Specialty Start Date End Date Deborah Quiroga, AGRICULTURAL APPRAISER PCP - General Family Medicine 03/24/16 02/04/23 documented as of this encounter
--- OUTSIDE RECORDS SUMMARY | 2024-03-07 14:38 | XMS_ITS | Encounter Summary ---
Author Organization [facility] Address [facility] [place] [address] Care Team Providers Care Commercial Finance Analyst Name Role Phone Ashley Quirogan Cornelius ANURAG Primary Care Provider [phone] Encounter Details Date Type Department Care Team (Late st Contact Info) Description 08/11/2016 Telephone Hematology [place] [phone] Markel Borjas MD [facility] [address] HEMATOLOGY [place] [address] Social History Tobacco Use Types Packs/Day Years [...] 11:30 AM EST Office [place] [address] Magdalena Peralta MD [facility] [address] [place] [address] 03/01/2025 4:15 PM EDT Office Visit Dermatology at [place] [address] [place] [address] Marek Bonilla MD [address], [place] [address] documented as of this encounter Visit Diagnoses Not on filedocumented in this encounter Care Teams Commercial Finance Analyst Relationship Specialty Start Date End Date Deborah Quiroga APRN PCP - General Family Medicine 03/24/16 02/04/23 documented as of this encounter
--- OUTSIDE RECORDS SUMMARY | 2024-03-07 14:38 | XMS_ITS | Encounter Summary ---
[place] [address] Care Team Providers Care Ground Crewman Name Role Phone Deborah Quiroga ANURAG Primary Care Provider [phone] Reason for Visit * Reason Onset Date Comments Medical Care Coordination 07/17/2016 Encounter Details Date Type Department Care Team ([facility] Contact Info) Description 07/17/2016 Telephone Hematology [place] [phone] Alexandrea Greenwood RN Medical Care Coordination Social [...] 07/17/2016 12:07 PM EST Message received from computer technology teacher: Injection/Infusion Referral Call placed to [phone]). Spoke w/ Pasquale. Services to be provided for pt are: Labs @ 10am ([facility]) & [facility] @ 11am on 07/20/16, CBC only on 07/30/16 Pasquale confirmed they would provide services to pt and I left [facility] for pt to call for appt info. Pt demographics, office note, med list and orders faxed to [facility] & [facility] documented in this encounter Plan of Treatment Upcoming Encounters Date Type Department Care Team (Late st Contact Info) Description 06/05/2024 11:30 AM EST Office [place] [address] Magdalena Peralta MD [facility] [address] [place] [address] 03/01/2025 4:15 PM EDT Office Visit Dermatology at [place] [address] [place] [phone] Marek Bonilla MD [address] [facility] [place] [address] documented as of this encounter Visit Diagnoses Not on filedocumented in this encounter Care Teams Ground Crewman Relationship Specialty Start Date End Date Deborah Quiroga APRN PCP - General Family Medicine 03/24/16 02/04/23 documented as of this encounter
--- OUTSIDE RECORDS SUMMARY | 2024-03-07 14:38 | XMS_ITS | Encounter Summary ---
Author Organization Count Includes [facility] Address [facility] [place] [address] Care Team Providers Care Preload Supervisor Name Role Phone Deborah Quiroga APRN Primary Care Provider [phone] Encounter Details Date Type Department Care Team (Late st Contact Info) Description 05/22/2016 Orders Only Cardiology at [address] [phone] [facility] [place] [address] Aortic valve stenosis, unspecified etiology Social History [...] 11:30 AM EST Office [place] [address] [facility] [place] [address] 03/01/2025 4:15 PM EDT Office Visit Dermatology at [address] [phone] Marek Bonilla MD [address], [place] [address] documented as of this encounter Procedures Procedure Name Priority Date/Time Associated Diagnosis Comments CARDIAC CATHETERIZATION Routine 06/03/20 16 9:13 AM EDT Aortic valve stenosis, unspecified etiology documented in this encounter Results * CARDIAC CATHETERIZATION (06/03/2016 9:13 AM EDT) Anatomical Region Laterality Modality Other Narrative 06/03/2016 10:13 AM EDT ?[facility] ? Cardiac Catheterization/Intervention Report ? Patient Name: Purnima Thacker. ? Procedure Date: 06/03/2016 ? A #: [id number] ? Primary Physician: Fanny, Nitesh E ? Case #: [id number] ? File Name: [id number] ? Catheterization Order Number: [id number] ? [facility] ? Final Report [place], [place] ? Patient Name: ? Purnima M. Kirstie ? ID#: ?[id number] ? : ?1955 ? Procedure Date: ? June 03, 2016 ? Case #: ? [id number] ? Room: ? 1 ? Case Physician: [...] no symptom, no angina (w/i 14 days). [place] ?Cardiovascular Society angina class was 0. This [...] Procedure Note Nitesh Escobedo MD - 09/21/2016 [facility] Cardiac Catheterization/Intervention Report Patient Name: Purnima Thacker Procedure Date: 06/03/2016 A #: [id number] Primary Physician: Nitesh Escobedo Case #: [id number] File Name: [id number] Catheterization Order Number: [id number] [facility] FinalReport [place], [place] Patient Name: Purnima Thacker ID#:[id number] :1955 Procedure Date: June 03, 2016 Case [...] with: no symptom, no angina (w/i 14 days).[place] Cardiovascular Society angina class was 0. This [...] etiology documented in this encounter Care Teams Preload Supervisor Relationship Specialty Start Date End Date Deborah Quiroga, SPA ASSOCIATE PCP - General Family Medicine 03/24/16 02/04/23 documented as of this encounter
--- OUTSIDE RECORDS SUMMARY | 2024-03-07 14:38 | XMS_ITS | Encounter Summary ---
Author Organization [facility] [place] [address] Care Team Providers Care Costume Design Teacher Name Role Phone Deborah Quiroga APRN Primary Care Provider [phone] Encounter Details Date Type Department Care Team (Latest Contact Info) Description 07/10/2016 2:54 PM EST - 07/10/2016 11:59 PM EST Hospital [place] [phone] Discharge Disposition: Home Social History Tobacco Use [...] 11:30 AM EST Office [place] [address] Magdalena Peralta MD [facility] [address] [place] [address] 03/01/2025 4:15 PM EDT Office Visit Dermatology at [place] [address] [facility] [place] [address] Marek Bonilla MD [address], [place] [address] documented as of this encounter Procedures Procedure Name Priority Date/Time Associated Diagnosis Comments BONE MARROW FINAL REPORT Routine 07/10/2016 3:43 PM EST documented in this encounter Results * Bone Marrow Final Report (07/10/2016 3:43 PM EST) Final Diagnosis [id number] ?Location: OPW The signing pathologist has (i) examined the relevant preparation(s) for the specimen(s) and (ii) rendered or confirmed the diagnosis(es). . ? Bone Marrow Final DIAGNOSIS BONE MARROW (PERIPHERAL SMEAR, ASPIRATE SMEAR, TOUCH PREP, CLOT SECTION, CORE BIOPSY); [OSR# [id number], COLLECTED 06/23/2016, 19 SLIDES]: ?? 1. 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 Polytypic plasma cell staining, high background Lambda ?Polytypic plasma cell staining, high background Block: ? B2 (Core biopsy 2) Fixative: ?? Formalin ANTIBODY: ?? RESULT/COMMENT CD3 ? Scattered small lymphocytes and lymphoid aggregates highlighted CD20 ?Few scattered small lymphocytes stain ( ?? <CD3 in aggregates) CD138 ? Scattered plasma cells represent 3-4% of the cellularity [place] ? Polytypic plasma cell staining, high background Lambda ?Polytypic plasma cell staining, high background Note: The immunoperoxidase stains reported above were developed and their performance characteristics determined by [facility]. ??They have not [...] CONSULTATION CASE A - 19 slides labeled [id number], collection date 06/23/2016. [id number] Report to: [facility] Surgical Pathology Department [facility], [facility], [address]nd Floor [address] [place] [address] ??[id number] 07/13/2016 11:38 AM EST [facility] Consult Case 07/10/2016 3:43 PM EST 07/10/2016 3:43 PM EST Nitesh Pina Jr., MD PATHOLOGY/CYTOLOGY O RDERABLES [facility] [place] [address] documented in this encounter Visit Diagnoses Not on filedocumented in this encounter Care Teams Costume Design Teacher Relationship Specialty Start Date End Date Deborah Quiroga APRN PCP - General Family Medicine 03/24/16 02/04/23 documented as of this encounter
--- OUTSIDE RECORDS SUMMARY | 2024-03-07 14:38 | XMS_ITS | Encounter Summary ---
Author Organization [facility] Address [facility] [place] [address] Care Team Providers Care Flour Broker Name Role Phone Ashley Quirogazac Shields APRN Primary Care Provider [phone] Encounter Details Date Type Department Care Team (Latest Contact Info) Description 06/19/2016 - 06/19/2016 11:59 PM EST Hospital Encounter [place] [address] Nitesh Pina Jr., MD [facility] [address] [place] [address] Pain Discharge Disposition: Home Social History Tobacco [...] 11:30 AM EST Office [place] [address] Magdalena Peralta MD [facility] [place] [address] 03/01/2025 4:15 PM EDT Office Visit Dermatology at [address] [place] [address] Marek Bonilla MD [address] [facility] [place] [address] documented as of this encounter Procedures Procedure Name Priority Date/Time Associated Diagnosis Comments FILM LIBRARY STORAGE ONLY CT CHEST ABDOMEN PELVIS Routine 06/19/2016 12:00 AM EST Pain documented in this encounter Results * Film Library- Storage Only CT Chest Abdomen Pelvis (06/19/2016 12:00 AM EST) Narrative [facility] - 06/20/2016 8:53 AM EST This exam is for storage only and is auto-finalizing. Nitesh Pina Jr., MD IMG FILM LIBRARY ORD ERABLES [place], [place] documented in this encounter Visit Diagnoses Diagnosis Pain Generalized pain documented in this encounter Care Teams Flour Broker Relationship Specialty Start Date End Date Deborah Quiroga, COKE WHEELER PCP - General Family Medicine 03/24/16 02/04/23 documented as of this encounter
--- OUTSIDE RECORDS SUMMARY | 2024-03-07 14:38 | XMS_ITS | Encounter Summary ---
Author Organization [facility] [place] [address] Care Team Providers Care Production Assembly Supervisor Name Role Phone Deborah Quiroga APRN Primary Care Provider [phone] Encounter Details Date Type Department Care Team (Late st Contact Info) Description 08/18/2016 4:20 PM EST Clinical [place] [phone] Social History Tobacco Use Types Packs/Day Years [...] 11:30 AM EST Office [place] [address] Magdalena Peralta MD [facility] [place] [address] 03/01/2025 4:15 PM EDT Office Visit Dermatology at [place] [address] [facility] [place] [phone] Marek Bonilla MD [address], [place] [address] documented as of this encounter Visit Diagnoses Not on filedocumented in this encounter Care Teams Production Assembly Supervisor Relationship Specialty Start Date End Date Deborah Quiroga APRN PCP - General Family Medicine 03/24/16 02/04/23 documented as of this encounter
--- OUTSIDE RECORDS SUMMARY | 2024-03-07 14:38 | XMS_ITS | Encounter Summary ---
Author Organization [facility] Address [facility] [place] [address] Care Team Providers Care Technical Marketing Engineer Name Role Phone Danni Laird APRN Primary Care Provider [phone] Encounter Details Date Type Department Care Team (Late st Contact Info) Description 01/23/2014 Orders Only Cardiology at [address] [phone] Lee Kincaid MD [facility] [place] [address] SOB (shortness of breath) (Primary Dx) Social [...] 11:30 AM EST Office [place] [phone] Magdalena Peralta MD [facility] [place] [address] 03/01/2025 4:15 PM EDT Office Visit Dermatology at [place] [address] [place] [address] aMrek Bonilla MD [address], [place] [address] documented as of this encounter Results * Echocardiogram Transthoracic(Leb) (01/23/2014 3:17 PM EDT) EF 50 HEARTLAB SYSTEM Anatomical Region Laterality Modality Other 01/23/2014 Narrative 01/23/2014 4:35 PM EDT Procedure: ? Transthoracic Echocardiogram Patient: ? ANDREW ECHOLS M ?(Age): 1955(58) Med Rec#: ?[id number] ? Sex: ?F ? Site Loc: ?[facility] ? Ht / Wt: ??158(cm)/93(kg) Pt. Loc: ? Adult Floor ?BSA: ?2.02 Study Date: ?01/23/2014 ? Pt. Type: Inpatient Tape: ? Referring: Lee Kincaid ([id number]) Referring: ANNALISA Sales Operations Associate: Miguel Beverly Diagnosis:CPT Code(s): ??Echo Full (41914), ??Spectral Doppler (33412), Color Doppler (80526), Indication(s): ??Aortic stenosis Rhythm: Sinus HR ?BP [...] ? Mid-Inferior ?Hypokinetic ? Mid-Inferoseptal ?Hypokinetic ? Frisco-Septal ? Hypokinetic ? Frisco-Anterior ? Hypokinetic ? Frisco-Lateral ?Hypokinetic ? Frisco-Inferior ? Hypokinetic ? Frisco-Tip ?Hypokinetic ? Chambers ?Value ?Units (Range) ? [...] 01/23/2014 16:34:37 Images reviewed and interpretation verified [facility] Procedure Note Lee Kincaid MD - 01/23/2014 Procedure: Transthoracic Echocardiogram Patient: ANDREW Mejias (Age): 1955(58) Med Rec#: [id number] Sex: F Site Loc: [facility] Ht / Wt: 158(cm)/93(kg) Pt. Loc: Adult Floor BSA: 2.02 Study Date: 01/23/2014 Pt. Type: Inpatient Tape: Referring: Lee Kincaid ([id number]) Referring: ANNALISA Sales Operations Associate: Miguel Beverly Diagnosis:CPT Code(s): Echo Full (55269), Spectral Doppler (17898), Color Doppler (68889), Indication(s): Aortic stenosis Rhythm: Sinus HR BP [...] Hypokinetic Mid-Posterolateral Hypokinetic Mid-Inferior Hypokinetic Mid-Inferoseptal Hypokinetic Frisco-Septal Hypokinetic Frisco-Anterior Hypokinetic Frisco-Lateral Hypokinetic Frisco-Inferior Hypokinetic Frisco-Tip Hypokinetic Chambers Value Units (Range) IVSd 2D [...] 01/23/2014 16:34:37 Images reviewed and interpretation verified [facility] Lee Kincaid MD ECHO ORDERABLES documented in this encounter Visit Diagnoses Diagnosis SOB (shortness of breath)- Primary Shortness of breath documented in this encounter Care Teams Technical Marketing Engineer Relationship Specialty Start Date End Date Danni Laird APRN [address] [place] [address] PCP - General 01/23/14 11/11/14 documented as of this encounter
--- OUTSIDE RECORDS SUMMARY | 2024-03-07 14:38 | XMS_ITS | Encounter Summary ---
Author Organization [facility] Address [facility] [place] [address] Care Team Providers Care Wastewater Project Engineer Name Role Phone Deborah Quiroga APRN Primary Care Provider [phone] Encounter Details Date Type Department Care Team (Late st Contact Info) Description 07/31/2016 External Results [place]ematology [place] [address] Alexandrea Greenwood RN Neutropenia, unspecified type Social [...] EST Office [place] [address] Magdalena Peralta MD [facility] [place] [address] 03/01/2025 4:15 PM EDT Office Visit Dermatology at [address] [place] [phone] Marek Bonilla MD [address] [facility], [place] [address] documented as of this encounter Procedures Procedure Name Priority Date/Time Associated Diagnosis Comments CBC (WITH DIFF) Routine 07/31/2016 9:40 AM EST Neutropenia, unspecified type documented in this encounter Results * (ABNORMAL) CBC (with Diff) (07/31/2016 9:40 AM EST) White Blood Cell 2.23(EXTER NAL/ABN) 4.4 - 10.8 EXTERNAL LAB Hemoglobin 12.6 12.0 - 16.0 EXTERNAL LAB Hematocrit 37.7 36.0 - 46.0 EXTERNAL LAB Platelet 167 130 - 400 EXTERNAL LAB ANC 1.17(EXTER NAL/ABN) 1.2 - 6.7 EXTERNAL LAB Blood specimen (specimen) 07/31/2016 9:40 AM EST Markel Borjas MD HEMATOLOGY ORDERAB LES EXTERNAL LAB documented in this encounter Visit Diagnoses Diagnosis Neutropenia, unspecified type documented in this encounter Care Teams Wastewater Project Engineer Relationship Specialty Start Date End Date Deborah Quiroga, FOAM CASTER PCP - General Family Medicine 03/24/16 02/04/23 documented as of this encounter
--- OUTSIDE RECORDS SUMMARY | 2024-03-07 14:38 | XMS_ITS | Encounter Summary ---
Author Organization [facility] Address [facility] [address] Care Team Providers Care Boxing Promoter Name Role Phone Deborah Quiroga APRN Primary Care Provider [phone] Encounter Details Date Type Department Care Team (Late st Contact Info) Description 07/17/2016 9:00 AM EST Office Visit Hematology [place] [address] Markel Borjas MD [facility] [address] [place] [address] Neutropenia, unspecified type Social History Tobacco Use [...] 07/17/2016 9:00 AM EST Hematology Outpatient Clinic [facility] Hematology Outpatient Consult Note [...] TOUCH PREP, CLOT SECTION, CORE ??BIOPSY); [OSR# [id number], COLLECTED 06/23/2016, 19 SLIDES]: ?1. 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 Labs will be drawn at [facility] next week Imaging As above - reviewed [...] leukopenia. Will consi kanwal talking to pt's small brake form operator about a switch from ACEI to ARB [...] the original note were not included. [facility] HEM ON[facility] [id number] Date: 07/17/16 Patient Name: Purnima Thacker : 1955 Diagnosis: neutropenia Referral to [site]: [facility] Orders: ? Labs: Fax results to . [x] Draw CBC, copper level, CMV PCR, mononucleosis screen on 07/20 Repeat CBC on 07/30 (to measure response of WBC after Neulasta) ? Growth factor: [x] Neulasta 6mg SQ injection x 1 on 07/20/2016 Signature: Markel Borjas MD beeper # [id number] documented in this encounter Plan of Treatment Upcoming Encounters Date Type Department Care Team (Late st Contact Info) Description 06/05/2024 11:30 AM EST Office [place] [phone] Magdalena Peralta MD [facility] [place] [address] 03/01/2025 4:15 PM EDT Office Visit Dermatology at [place] [address] [facility] [place] [phone] Marek Bonilla MD [address], [place] [address] documented as of this encounter Results * (ABNORMAL) CBC (with Diff) (07/31/2016 9:40 AM EST) Pathologist [facility] White Blood Cell 2.23(EXTER NAL/ABN) 4.4 - 10.8 EXTERNAL LAB Hemoglobin 12.6 12.0 - 16.0 EXTERNAL LAB Hematocrit 37.7 36.0 - 46.0 EXTERNAL LAB Platelet 167 130 - 400 EXTERNAL LAB ANC 1.17(EXTER NAL/ABN) 1.2 - 6.7 EXTERNAL LAB Blood specimen (specimen) 07/31/2016 9:40 AM EST Markel Borjas MD HEMATOLOGY ORDERAB LES Performing Organization Address [facility] Co de Phone Number EXTERNAL LAB * Mononucleosis Screen (07/20/2016 10:30 AM EST) Pathologist [facility] Mononucleosis Screen neg neg - neg EXTERNAL LAB Blood specimen (specimen) 07/20/2016 10:30 AM EST Markel Borjas MD IMMUNOLOGY ORDERAB LES Performing Organization Address [facility] Co de Phone Number EXTERNAL LAB * Copper, serum (07/20/2016 10:30 AM EST) Pathologist [facility] Copper (NOVEMBER) 1.09 0.75 - 1.45 EXTERNAL LAB Blood specimen (specimen) 07/20/2016 10:30 AM EST Markel Borjas MD LAB SEND OUT ORDER JODIE Performing Organization Address [facility] Co de Phone Number EXTERNAL LAB * CMV PCR, Quantitative (07/20/2016 10:30 AM EST) Pathologist [facility] CMV PCR,Quantitati ve undetected EXTERNAL LAB Blood specimen (specimen) 07/20/2016 10:30 AM EST Markel Borjas MD MOLECULAR ORDERABL ES Performing Organization Address [facility] Co de Phone Number EXTERNAL LAB * (ABNORMAL) CBC (with Diff) (07/20/2016 10:30 AM EST) White Blood Cell 1.61(A) 4.4 - 10.8 EXTERNAL LAB Hemoglobin 12.3 12.0 - 16.0 EXTERNAL LAB Hematocrit 37.2 36.0 - 46.0 EXTERNAL LAB Platelet 229 130 - 400 EXTERNAL LAB Blood specimen (specimen) 07/20/2016 10:30 AM EST Markel Borjas MD HEMATOLOGY ORDERAB LES EXTERNAL LAB documented in this encounter Visit Diagnoses Diagnosis Neutropenia, unspecified type documented in this encounter Care Teams Boxing Promoter Relationship Specialty Start Date End Date Deborah Quiroga, YARN MERCERIZER OPERATOR HELPER PCP - General Family Medicine 03/24/16 02/04/23 documented as of this encounter
--- OUTSIDE RECORDS SUMMARY | 2024-03-07 14:38 | XMS_ITS | Encounter Summary ---
Author Organization [facility] Address [facility] [place] [address] Care Team Providers Care Cigarette Tester Name Role Phone Deborah Quiroga APRN Primary Care Provider [phone] Encounter Details Date Type Department Care Team (Late st Contact Info) Description 08/04/2016 External Results Hematology [place] [address] Alexandrea Greenwood RN Neutropenia, unspecified type Social [...] 11:30 AM EST [place] [address] [facility] [place] [address] 03/01/2025 4:15 PM EDT Office Visit Dermatology at [address] [place] [phone] Marek Bonilla MD [address] [facility], [place] [address] documented as of this encounter Procedures Procedure Name Priority Date/Time Associated Diagnosis Comments CBC (WITH DIFF) STAT 08/04/2016 12:05 PM EST Neutropenia, unspecified type documented in this encounter Results * (ABNORMAL) CBC (with Diff) (08/04/2016 12:05 PM EST) White Blood Cell 1.52(EXTER NAL/ABN) 4.4 - 10.8 EXTERNAL LAB Hemoglobin 12.3 12.0 - 16.0 EXTERNAL LAB Hematocrit 37.3 36.0 - 46.0 EXTERNAL LAB Platelet 236 130 - 400 EXTERNAL LAB ANC 0.56(EXTER NAL/ABN) 1.2 - 6.7 EXTERNAL LAB Blood specimen (specimen) 08/04/2016 12:05 PM EST Markel Borjas MD HEMATOLOGY ORDERAB LES EXTERNAL LAB documented in this encounter Visit Diagnoses Diagnosis Neutropenia, unspecified type documented in this encounter Care Teams Cigarette Tester Relationship Specialty Start Date End Date Deborah Quiroga APRN PCP - General Family Medicine 03/24/16 02/04/23 documented as of this encounter
--- OUTSIDE RECORDS SUMMARY | 2024-03-07 14:38 | XMS_ITS | Encounter Summary ---
Author Organization [facility] Address [facility] [place] [address] Care Team Providers Care Transit Clerk Name Role Phone JunaidAshley hargrovezac Shields APRN Primary Care Provider [phone] Reason for Visit * Auth/Cert Specialty Diagnoses / Procedures Referred By Crispin t Referred To Contact Diagnoses AVS Procedures CARDIAC CATHETERIZATION Referral ID Status Reason Start Date Expiration Date Visits Re quested Visits Authorized [id number] 1 1 Encounter Details Date Type Department Care Team (Late st Contact Info) Description 06/03/2016 6:32 AM EDT - 06/03/2016 1:10 PM EDT Hospital Encounter [place] [phone] Anjum Oliveros II, MD [facility] [address] Mario Alberto Escobedo MD [facility] [place] [address] Aortic valve stenosis, unspecified etiology; Nonrheumatic aortic [...] by your doctor, do not take any qjsd-crv-afknvdg medicinesor herbal preparations without first discussing this with your doctor or pharmacist. There is the possibility of side effects and interactions when these are combined. Follow Up Care Who to call with questions or problems If there are any questions or problems that you think might be related to your cardiac cath or angioplasty, contact the top precipitator operator helper aboriginal liaison officer by calling [facility] at . * Patient Instructions* Felicia Corrigan - 06/03/2016 9:33 AM EDT Cardiology Instructions Call your doctor if: Chest pain, dyspnea, pain or swelling in legs occurs. If you have non-emergent questions between now and the time of your follow up appointments: -During 8am-5pm Wednesday through Wednesday call [phone] to speak with a nurse in the cardiology clinic -All other times call [phone] and ask to speak to the patented hogshead assembler aboriginal liaison officer. MEDICATIONS - restart your spironolactone, discontinue prior [...] Appointments: Primary care provider: Cardiology: Deborah Hahn, INSTRUMENT TESTER [phone] Follow up as planned or as needed. Dr. Esparza [phone] Other follow-up appointment: Hematology - Dr. Mario [...] 11:30 AM EST Office [place] [address] Magdalena Peralta MD [facility] [place] [address] 03/01/2025 4:15 PM EDT Office Visit Dermatology at [place] [address] [facility] [place] [phone] Marek Bonilla MD [address] [facility], [place] [address] documented as of this encounter Procedures Procedure [...] 06/03/2016 11:45 AM EDT COMPREHENSIVE METABOLIC PANEL Routine 06/03/2016 11:45 AM EDT documented in this encounter Results * Green Tube HOLD (06/03/2016 11:45 AM EDT) Pathologist [facility] Green Hold Sample in lab. [facility] Blood specimen (specimen) Venous Draw / Unknown 06/03/2016 11:45 AM EDT 06/03/2016 12:12 PM EDT Mario Alberto Escobedo MD CHEMISTRY ORDERABLES Performing Organization Address City/State/[facility] Co de Phone Number [facility] [place] [address] * Methylmalonic acid, serum (06/03/2016 11:45 AM EDT) Pathologist [facility] Methylmalonic Acid (NOVEMBER) 0.21 <=0.40 nmol/mL [facility] Comment: Test Performed by: [address] [address] Material Scheduler: [place] Chaudhry II, M.D., Ph.D. Blood specimen (specimen) 06/03/2016 11:45 AM EDT 06/03/2016 1:57 PM EDT Narrative Resulting Agency Comment Spec In Lab Mario Alberto Escobedo MD LAB SEND OUT ORDERAB LES Performing Organization Address City/State/[facility] Co de Phone Number [facility] [place] [address] * Granulocyte Antibody (06/03/2016 11:45 AM EDT) Pathologist [facility] Granulocyte Ab (NOVEMBER) Negative Not Applicable [facility] Comment: ADDITIONAL INFORMATION Method: Immunofluorescent Assay Performing Laboratory CLIA# [id number] This test was developed and its performance characteristics determined by [facility] in a manner consistent with CLIA requirements. This test has not been cleared or approved by the U.S. Food and Drug Administration. Test Performed by: [address] [address] Material Scheduler: [place] Chaudhry II, M.D., Ph.D. Blood specimen (specimen) 06/03/2016 11:45 AM EDT 06/03/2016 1:57 PM EDT Narrative Resulting Agency Comment Spec In Lab Mario Alberto Escobedo MD LAB SEND OUT ORDERAB LES Performing Organization Address [facility] Co de Phone Number [facility] [place] [address] * TSH (06/03/2016 11:45 AM EDT) [facility] Thyroid Stimulating Hormone 2.18 0.27 - 4.20 mcIU/mL [facility] Blood specimen (specimen) 06/03/2016 11:45 AM EDT 06/03/2016 12:11 PM EDT Narrative Resulting Agency Comment Spec In Lab Mario Alberto Escobedo MD CHEMISTRY ORDERABLES Performing Organization Address [facility] Co de Phone Number [facility] [place] [address] * Homocysteine Total, Plasma (06/03/2016 11:45 AM EDT) [facility] Homocystine 9 <=15 mcmol/L [facility] Blood specimen (specimen) 06/03/2016 11:45 AM EDT 06/03/2016 12:11 PM EDT Narrative Resulting Agency Comment Spec In Lab Mario Alberto Escobedo MD CHEMISTRY ORDERABLES Performing Organization Address [facility] Co de Phone Number [facility] [place] [address] * Folate, serum (06/03/2016 11:45 AM EDT) Folate >20.0 4.8 - 24.2 ng/mL [facility] Blood specimen (specimen) 06/03/2016 11:45 AM EDT 06/03/2016 12:04 PM EDT Narrative Resulting Agency Comment Spec In Lab Mario Alberto Escobedo MD CHEMISTRY ORDERABLES Performing Organization Address [facility] Co de Phone Number [facility] [place] [address] * (ABNORMAL) Sedimentation rate (06/03/2016 11:45 AM EDT) Sedimentation Rate Automated 41(H) 0 - 20 mm/hr [facility] Blood specimen (specimen) 06/03/2016 11:45 AM EDT 06/03/2016 12:04 PM EDT Narrative Resulting Agency Comment Spec In Lab Mario Alberto Escobedo MD HEMATOLOGY ORDERABLE S Performing Organization Address City/[facility]/ZIP Co de Phone Number [facility] [place] [address] * Lactate Dehydrogenase (06/03/2016 11:45 AM EDT) Lactate Dehydrogenase 164 110 - 220 unit/L [facility] Blood specimen (specimen) 06/03/2016 11:45 AM EDT 06/03/2016 12:11 PM EDT Narrative Resulting Agency Comment Spec In Lab Mario Alberto Escobedo MD CHEMISTRY ORDERABLES [facility] [place] [address] * Comprehensive metabolic panel (non-fasting) (06/03/2016 11:45 AM EDT) Glucose 90 65 - 199 mg/dL [facility] Comment:Diabetes: >=200 mg/d L plus symptoms Blood Urea Nitrogen 11 8 - 18 mg/dL [facility] Creatinine 0.83 0.70 - 1.20 mg/dL [facility] Comment: Please note that the pediatric reference intervals supplied above were not validated at [facility]. Results from pediatric patients should be interpreted [...] mmol/L [facility] Carbon Dioxide 25 22 - 31 mmol/L [facility] Anion Gap 14 5 - 15 mmol/L [facility] Calcium 9.2 8.5 - 10.5 mg/dL [facility] Protein, Total 7.0 6.1 - 8.0 gm/dL [facility] Albumin 4.0 3.2 - 5.2 gm/dL [facility] Aspartate Aminotransferase 17 0 - 30 unit/L [facility] Alanine Aminotransferase 9 0 - 30 unit/L [facility] Alkaline Phosphatase 81 40 - 104 unit/L [facility] Bilirubin, Total 0.4 0.2 - 1.3 mg/dL [facility] Bilirubin, Direct 0.1 0.0 - 0.3 mg/dL [facility] Est Glomerular Filtration Rate >60 >=60 [facility] Comment: [...] the following links into your internet browser. [email or web address] Blood specimen (specimen) 06/03/2016 11:45 AM EDT 06/03/2016 12:11 PM EDT Narrative Resulting Agency Comment Spec In Lab Mario Alberto Escobedo MD CHEMISTRY ORDERABLES [facility] [place] [id number] documented in this encounter Visit Diagnoses Diagnosis [...] 0654 (New Bag - Prov ider: Alie Madrid, VALDO) sodium chloride 0.9% infusion 150 mL/hr, Intravenous, [...] Hernandez) documented in this encounter Care Teams Transit Clerk Relationship Specialty Start Date End Date Deborah Quiroga, INSTRUMENT TESTER PCP - General Family Medicine 03/24/16 02/04/23 documented as of this encounter
--- OUTSIDE RECORDS SUMMARY | 2024-03-07 14:38 | XMS_ITS | Encounter Summary ---
Author Organization [facility] Address [facility] [place] [address] Care Team Providers Care Manager Willow Name Role Phone Ashley Quirogazac Shields APRN Primary Care Provider [phone] Encounter Details Date Type Department Care Team (Late st Contact Info) Description 05/19/2016 10:00 AM EDT Office [place] [address] Alirio Esparza MD [facility] [place] [address] Nonrheumatic aortic valve stenosis Social History Tobacco [...] 11:30 AM EST Office [place] [address] Magdalena Peralta MD [facility] [address] 03/01/2025 4:15 PM EDT Office Visit Dermatology at [address] [place] [address] Marek Bonilla MD [address], [place] [address] documented as of this encounter Results * [...] (Bezet) 448 ms MUSE SYSTEM Calculated P [place] 37 degrees MUSE SYSTEM Calculated R [place] 31 degrees MUSE SYSTEM Calculated T [place] 25 degrees MUSE SYSTEM INTERPRETATION Normal sinus rhythm Normal ECG No previous ECGs available Confirmed by MD Becca, Deangelo ([id number]) on 05/19/2016 5:23:33 PM MUSE SYSTEM 05/19/2016 11:4 3 AM EDT 05/19/2016 5:23 PM EDT Alirio Esparza MD ECG ORDERABLES MUSE SYSTEM * Basic Metabolic Panel (non-fasting) (05/19/2016 11:32 AM EDT) Glucose 86 65 - 199 mg/dL [facility] Comment:Diabetes: >=200 mg/d L plus symptoms Blood Urea Nitrogen 13 8 - 18 mg/dL [facility] Creatinine 0.95 0.70 - 1.20 mg/dL [facility] Comment: Please note that the pediatric reference intervals supplied above were not validated at [facility]. Results from pediatric patients [...] - 107 mmol/L [facility] Carbon Dioxide 27 22 - 31 mmol/L [facility] Anion Gap 12 5 - 15 mmol/L [facility] Calcium 10.1 8.5 - 10.5 mg/dL [facility] Est Glomerular Filtration Rate 60 >=60 [facility] Comment: [...] the following links into your internet browser. [email or web address] Blood specimen (specimen) 05/19/2016 11:32 AM EDT 05/19/2016 11:41 AM EDT Narrative Resulting Agency Comment Spec In Lab Alirio Esparza MD CHEMISTRY ORDERABLE S [facility] [place] [address] documented in this encounter Visit Diagnoses Diagnosis Nonrheumatic aortic valve stenosis Aortic valve disorders Nonrheumatic aortic valve stenosis Aortic valve disorders documented in this encounter Care Teams Manager Willow Relationship Specialty Start Date End Date Deborah Quiroga APRN PCP - General Family Medicine 03/24/16 02/04/23 documented as of this encounter
--- OUTSIDE RECORDS SUMMARY | 2024-03-07 14:38 | XMS_ITS | Encounter Summary ---
Author Organization [facility] Address [facility] [place] [address] Care Team Providers Care Burglary Investigator Name Role Phone Junaid Deborahzac Shields APRN Primary Care Provider [phone] Reason for Visit * Reason Comments Schedule Office Case * Consultation (Routine) - Closed Specialty Diagnoses / Procedures Referred By Contac t Referred To Contact Hematology and Oncology Diagnoses Leukopenia Neutropenia LEUKOPENIA W/NEUTROPENIA Procedures TC PEGFILGRASTIM, 6MG, INJECTION LEUKOPENIA W/NEUTROPENIA Alirio Esparza MD [facility] CARDIOTHORACIC [place] [address] Mario Alberto Ramos Jr., MD [facility] HEMATOLOGY [place] [address] Referral ID Status Reason Start Date Expiration Date V isits Requested Visits Authorized [id number] Closed Consult, Test & Treat 07/17/2016 07/17/2017 1 1 Encounter Details Date Type Department Care Team (Late st Contact Info) Description 06/09/2016 3:00 PM EST Office Visit Hematology [place] [address] Mario Alberto Ramos Jr., MD [facility] HEMATOLOGY [place] [address] Cyclical neutropenia Social History Tobacco Use Types [...] PM EST Hematology Outpatient Clinic [facility] Hematology Outpatient Consult Note CC: 60 [...] Unknown See Comment Flow Cytometry Report Unknown [id number] ... HematoPathology: Flow Cytometry DIAGNOSIS 1. No [...] 11:30 AM EST Office Visit [place] [address] Magdalena Peralta MD [facility] [place] [address] 03/01/2025 4:15 PM EDT Office Visit Dermatology at [place] [address] [place] [address] Marek Bonilla MD [address], [place] [address] documented as of this encounter Procedures Procedure Name Priority Date/Time Associated Diagnosis Comments IMMUNOPHENOTYPING FLOW CYTOMETRY (BLOOD) Routine 06/09/2016 4:53 PM EST Cyclical neutropenia [...] (06/09/2016 4:53 PM EST) Flow Cytometry Report [id number] ?Location: 3K The signing pathologist has (i) [...] by the Clinical Flow Cytometry Laboratory at [facility]. It has not been cleared or [...] high complexity clinical laboratory testing. SPECIMEN PROCESSING [id number] Cells for immunophenotypic analysis were derived from peripheral blood. ??CD45 vs side scatter gating was utilized to identify a lymphoid analysis region that comprises approximately 49-51% of all cells. The following markers were assessed: CD2, CD3, CD4, CD5, CD7, CD8, CD10, CD16, CD19, CD45, CD56, CD57, kappa light chain, and lambda light chain. CLINICAL INFORMATION 60 yo female with neutropenia. LGL panel requested. [facility] 06/09/2016 4:53 PM EST Mario Alberto Ramos Jr., MD PATHOLOGY/CYTOLOGY O RDERABLES Performing Organization Address [facility]/[place] [address] * Scan, Peripheral Blood (06/09/2016 4:53 PM EST) [facility] Plat estimate Normal [facility] RBC Morphology Normal [facility] Blood specimen (specimen) 06/09/2016 4:53 PM EST 06/09/2016 5:00 PM EST Narrative Resulting Agency Comment Spec In Lab Mario Alberto Ramos Jr., MD HEMATOLOGY ORDERABLE S Performing Organization Address [facility] Co de Phone Number [facility] [place] [place] [address] * (ABNORMAL) Differential, Automated (06/09/2016 4:53 PM EST) [facility] Neutrophil % 27.7 % [facility] Neutrophil Absolute 0.48(Crit ical) 1.70 - 6.10 x10(3)/mc L [facility] Comment: Matches Previous Results.. This result has been called to NOT CALLED by Jesusita Argueta on 06 09 2016 at 1817, and has not been read back. MATCHES PREVIOUS RESULTS Lymph % 57.2 % [facility] Lymphocytes Abs 1.0 0.9 - 3.2 x10(3)/mc L [facility] Monocyte % 13.3 % [facility] Monocyte Abs 0.2(L) 0.3 - 0.9 x10(3)/[facility] Eos % 0.6 % [facility] Eosinophils Abs 0.0 0.0 - 0.4 x10(3)/[facility] Basophil % 1.2 % [facility] Baso Absolute 0.0 0.0 - 0.1 x10(3)/[facility] Immature Gran % 0.00 % [facility] Comment: Immature granulocytes(IG's)percentage and absolute count will include metamyelocytes, myelocytes, and promyelocytes. Blood smears from CBCs yielding IG's will be scanned manually for concordance. If this scan disagrees with the automated IG or if promyelocytes are noted, a manual differential will be performed. Immature Gran Absolute 0.00 0.00 - 0.04 x10(3)/[facility] Blood specimen (specimen) 06/09/2016 4:53 PM EST 06/09/2016 5:00 PM EST Narrative Resulting Agency Comment Spec In Lab Mario Alberto Ramos Jr., MD HEMATOLOGY ORDERABLE S [facility] [place] [place] [address] * (ABNORMAL) Hemogram (06/09/2016 4:53 PM EST) White Blood Cell 1.7(Criti gabrielle) 4.0 - 9.5 x10(3)/[facility] Red Blood Cell 3.92(L) 4.00 - 5.21 x10(6)/[facility] Hemoglobin 12.4 11.7 - 15.5 gm/dL [facility] Hematocrit 36.7 35.7 - 45.8 % [facility] Mean Cell Volume 93.6 82.6 - 94.4 fL [facility] Mean Cell Hemoglobin 31.6 27.1 - 32.0 pg [facility] Mean Cell Hemoglobin Concentration 33.8 31.7 - 35.0 gm/dL [facility] Platelet 234 145 - 357 x10(3)/mc L [facility] RDW Standard Deviation 39.8 37.0 - 46.0 fL [facility] RDW coefficient of variation 11.8 11.5 - 14.1 % [facility] Mean Platelet Volume 8.6 7.6 - 12.9 fL [facility] NRBC% auto 0.0 % [facility] NRBC Absolute 0.000 0.000 - 0.000 x10(3)/mc L [facility] Blood specimen (specimen) 06/09/2016 4:53 PM EST 06/09/2016 5:00 PM EST Narrative Resulting Agency Comment Spec In Lab Mario Alberto Ramos Jr., MD HEMATOLOGY ORDERABLE S Performing Organization Address City/[facility]/ZIP Co de Phone Number [facility] [place] [place] [address] * Immunophenotyping Flow Cytometry (06/09/2016 4:53 PM EST) Immunophenotyping Flow See Comment [facility] Comment: When completed by the Pathologist, the Flow Cytometry Report ([id number]) will display under the Pathology Results section within [facility]. Specimen of unknown material (specimen) 06/09/2016 4:53 PM EST 06/09/2016 5:00 PM EST Narrative Resulting Agency Comment Spec In Lab Mario Alberto Ramos Jr., MD HEMATOLOGY ORDERABLE S [facility] [place] [address] documented in this encounter Visit Diagnoses Diagnosis Cyclical neutropenia Cyclic neutropenia documented in this encounter Care Teams Burglary Investigator Relationship Specialty Start Date End Date Deborah Quiroga, CHANNELER OUTSOLE PCP - General Family Medicine 03/24/16 02/04/23 documented as of this encounter
--- OUTSIDE RECORDS SUMMARY | 2024-03-07 14:38 | XMS_ITS | Encounter Summary ---
Author Organization [facility] Address [facility] [place] [address] Care Team Providers Care Cellophane Wrapping Examiner Name Role Phone Deborah Quiroga APRN Primary Care Provider [phone] Encounter Details Date Type Department Care Team (Late st Contact Info) Description 07/31/2016 Orders Only Hematology [place] [address] Alexandrea Greenwood RN Neutropenia, unspecified type Social [...] EST Office [place] [address] Magdalena Peralta MD [facility] [place] [address] 03/01/2025 4:15 PM EDT Office Visit Dermatology at [address] [place] [address] Marek Bonilla MD [address] [facility], [place] [address] documented as of this encounter Results * [...] type documented in this encounter Care Teams Cellophane Wrapping Examiner Relationship Specialty Start Date End Date Deborah Quiroga APRN PCP - General Family Medicine 03/24/16 02/04/23 documented as of this encounter
--- OUTSIDE RECORDS SUMMARY | 2024-03-07 14:38 | XMS_ITS | Encounter Summary ---
Author Organization [facility] Address [facility] [place] [address] Care Team Providers Care Front Office Agent Name Role Phone Deborah Quiroga ANURAG Primary Care Provider [phone] Reason for Visit * Reason Onset Date Comments Pre Procedure Call 06/18/2016 Encounter Details Date Type Department Care Team (Late st Contact Info) Description 06/18/2016 Telephone Hematology [place] [address] Alexandrea Greenwood RN Pre Procedure [...] 11:30 AM EST Office [place] [address] Magdalena Peralta MD [facility] [place] [address] 03/01/2025 4:15 PM EDT Office Visit Dermatology at [place] [address] [place] [address] Marek Bonilla MD [address], [address] [place] [address] documented as of this encounter Visit Diagnoses Not on filedocumented in this encounter Care Teams Front Office Agent Relationship Specialty Start Date End Date Deborah Quiroga APRN PCP - General Family Medicine 03/24/16 02/04/23 documented as of this encounter
--- OUTSIDE RECORDS SUMMARY | 2024-03-07 14:38 | XMS_ITS | Encounter Summary ---
Author Organization [facility] Address [facility] [place] [address] Care Team Providers Care Red Cap Name Role Phone Deborah Quiroga APRN Primary Care Provider [phone] Encounter Details Date Type Department Care Team (Late st Contact Info) Description 07/22/2016 External Results Hematology [place] [address] Alexandrea Greenwood RN Neutropenia, unspecified type Social [...] EST Office [place] [address] Magdalena Peralta MD [facility] [place] [address] 03/01/2025 4:15 PM EDT Office Visit Dermatology at [address] [place] [address] Marek Bonilla MD [address] [facility], [place] [address] documented as of this encounter Procedures Procedure Name Priority Date/Time Associated Diagnosis Comments COPPER, SERUM Routine 07/20/2016 10:30 AM EST Neutropenia, unspecified type CMV PCR, QUANTITATIVE Routine 07/20/2016 10:30 AM EST Neutropenia, unspecified type MONONUCLEOSIS SCREEN (APD/JEANNINE/[facility]/[place]) Routine 07/20/2016 10:30 AM EST Neutropenia, unspecified type CBC (WITH DIFF) Routine 07/20/2016 10:30 AM EST Neutropenia, unspecified type documented in this encounter Results * Copper, serum (07/20/2016 10:30 AM EST) Copper (NOVEMBER) 1.09 0.75 - 1.45 EXTERNAL LAB Blood specimen (specimen) 07/20/2016 10:30 AM EST Markel Borjas MD LAB SEND OUT ORDER JODIE Performing Organization Address [facility]/ZIP Co de Phone Number EXTERNAL LAB * CMV PCR, Quantitative (07/20/2016 10:30 AM EST) CMV PCR,Quantitati ve undetected EXTERNAL LAB Blood specimen (specimen) 07/20/2016 10:30 AM EST Markel Borjas MD MOLECULAR ORDERABL ES Performing Organization Address [facility]/ZIP Co de Phone Number EXTERNAL LAB * Mononucleosis Screen (07/20/2016 10:30 AM EST) Mononucleosis Screen neg neg - neg EXTERNAL LAB Blood specimen (specimen) 07/20/2016 10:30 AM EST Markel Borjas MD IMMUNOLOGY ORDERAB LES Performing Organization Address City/[facility]/ZIP Co de Phone Number EXTERNAL LAB [...] type documented in this encounter Care Teams Red Cap Relationship Specialty Start Date End Date Deborah Quiroga, HEEL TRIMMER PCP - General Family Medicine 03/24/16 02/04/23 documented as of this encounter
--- OUTSIDE RECORDS SUMMARY | 2024-03-07 14:38 | XMS_ITS | Encounter Summary ---
Author Organization [facility] Address [facility] [place] [address] Care Team Providers Care Bank Guard Name Role Phone Ashley Quirogan Sylvia ANURAG Primary Care Provider [phone] Encounter Details Date Type Department Care Team (Late st Contact Info) Description 07/13/2016 External [place] [address] Provider, Scanning Social History Tobacco Use Types [...] 11:30 AM EST Office [place] [address] Magdalena Peralta MD [facility] [place] [address] 03/01/2025 4:15 PM EDT Office Visit Dermatology at [place] [address] [place] [address] Marek Bonilla MD [address] [facility], [address] [place] [address] documented as of this encounter Procedures Procedure Name Priority Date/Time Associated Diagnosis Comments SURGICAL PATHOLOGY SCAN Routine 07/13/2016 documented in this encounter Results * Scan Doc: Surgical Pathology (07/13/2016) Nitesh Pina Jr., MD MEDIA MGR SCAN EXT O RDR/RSLT documented in this encounter Visit Diagnoses Not on filedocumented in this encounter Care Teams Bank Guard Relationship Specialty Start Date End Date Deborah Quiroga, MANUFACTURER AGENT PCP - General Family Medicine 03/24/16 02/04/23 documented as of this encounter
--- OUTSIDE RECORDS SUMMARY | 2024-03-07 14:38 | XMS_ITS | Encounter Summary ---
[place] [address] Care Team Providers Care Incident Response Lead Name Role Phone Ashley Quirogan Cornelius ANURAG Primary Care Provider [phone] Encounter Details Date Type Department Care Team (Late st Contact Info) Description 03/24/2016 Notes [place] [address] Alfa Lua Social History Tobacco Use Types [...] assessments completed: Wadsworth Score: 6/6 IADL: 7/7 Political Cartoonist Strength Trials: 18.4, 15.0, 16.8 (right hand dominant) 5 meter walk test in seconds x3: 4.98, 4.88, 4.45 KCCQol: 98% Alfa Lua documented in this encounter Plan of Treatment Upcoming Encounters Date Type Department Care Team (Late st Contact Info) Description 06/05/2024 11:30 AM EST Office [place] [address] Magdalena Peralta MD [facility] [place] [address] 03/01/2025 4:15 PM EDT Office Visit Dermatology at [place] [address] [facility] [place] [address] Marek Bonilla MD [address], [address] [place] [address] documented as of this encounter Visit Diagnoses Not on filedocumented in this encounter Care Teams Incident Response Lead Relationship Specialty Start Date End Date Deborah Quiroga APRN PCP - General Family Medicine 03/24/16 02/04/23 documented as of this encounter
--- OUTSIDE RECORDS SUMMARY | 2024-03-07 14:38 | XMS_ITS | Encounter Summary ---
[place] [address] Care Team Providers Care Ecdis N Navigation Operator Name Role Phone Jerel Sofia Garcia APRN Primary Care Provider [phone] Encounter Details Date Type Department Care Team (Late st Contact Info) Description 11/12/2014 8:10 AM EDT - 11/12/2014 11:59 PM EDT [place] [address] CLINIC, DR ABE Burrell, Antelmo Porter MD [address] [place] [address] Discharge Disposition: Home Social History Tobacco Use [...] 11:30 AM EST [place] [address] Magdalena Peralta MD [facility] DR [place] [address] 03/01/2025 4:15 PM EDT Office Visit Dermatology at [place] [address] [place] [address] Marek Bonilla MD [address], [place] [address] documented as of this encounter Procedures Procedure [...] mLs documented in this encounter Care Teams Ecdis N Navigation Operator Relationship Specialty Start Date End Date Sofia Beltrán APRN [address] [place] [address] PCP - General 11/12/14 03/23/16 documented as of this encounter
--- OUTSIDE RECORDS SUMMARY | 2024-03-07 14:38 | XMS_ITS | Encounter Summary ---
Author Organization [facility] Address [facility] [place] [address] Care Team Providers Care Sap Analyst Name Role Phone Deborah Quiroga APRN Primary Care Provider [phone] Encounter Details Date Type Department Care Team (Late st Contact Info) Description 06/09/2016 Orders Only Hematology [place] [address] Nitesh Pina Jr., MD [facility] [address] [place] [address] Cyclical neutropenia Social History Tobacco Use Types [...] 11:30 AM EST Office [place] [address] Magdalena Peralta MD [facility] [place] [address] 03/01/2025 4:15 PM EDT Office Visit Dermatology at [place] [address] [facility] [place] [address] Marek Bonilla MD [address] [place] [address] RD, [place] [address] documented as of this encounter Results * Immunophenotyping Flow Cytometry (06/09/2016 4:53 PM EST) Immunophenotyping Flow See Comment [facility] Comment: When completed by the Pathologist, the Flow Cytometry Report ([id number]) will display under the Pathology Results section within [facility]. Specimen of unknown material (specimen) 06/09/2016 4:53 PM EST 06/09/2016 5:00 PM EST Narrative Resulting Agency Comment Spec In Lab Nitesh Pina Jr., MD HEMATOLOGY ORDERABLE S Performing Organization Address City/State/[facility] Co de Phone Number [facility] [place] [address] documented in this encounter Visit Diagnoses Diagnosis Cyclical neutropenia Cyclic neutropenia documented in this encounter Care Teams Sap Analyst Relationship Specialty Start Date End Date Deborah Quiroga APRN PCP - General Family Medicine 03/24/16 02/04/23 documented as of this encounter
--- OUTSIDE RECORDS SUMMARY | 2024-03-07 14:38 | XMS_ITS | Encounter Summary ---
Author Organization [facility] Address [facility] [place] [address] Care Team Providers Care Cable Mock Up Assembler Name Role Phone Ashley Quirogan Cornelius ANURAG Primary Care Provider [phone] Encounter Details Date Type Department Care Team (Latest Contact Info) Description 05/19/2016 11:20 AM EDT [place] [phone] Nonrheumatic aortic valve stenosis Social History Tobacco [...] 11:30 AM EST Office [place] [phone] Magdalena Peralta MD [facility] [place] [address] 03/01/2025 4:15 PM EDT Office Visit Dermatology at [place] [address] [facility] [place] [phone] Marek Bonilla MD [address] [facility] [address] [place] [address] documented as of this encounter Procedures Procedure [...] Nonrheumatic aortic valve stenosis BASIC METABOLIC PANEL Routine 05/19/2016 11:32 AM EDT Nonrheumatic aortic valve stenosis documented in this encounter Results * Scan, Peripheral Blood (05/19/2016 11:32 AM EDT) Plat estimate Normal [facility] RBC Morphology Normal [facility] Blood specimen (specimen) 05/19/2016 11:32 AM EDT 05/19/2016 11:41 AM EDT Narrative Resulting Agency Comment Spec In Lab Alirio Esparza MD HEMATOLOGY ORDERABL ES [facility] [place] [address] * (ABNORMAL) Differential, Automated (05/19/2016 11:32 AM EDT) Neutrophil % 25.9 % [facility] Neutrophil Absolute 0.42(Crit ical) 1.70 - 6.10 x10(3)/mc L [facility] Comment: This result has been called to DR ALIRIO ESPARZA by Alivia Ibarra on 05 19 2016 at 1228, and has been read back. Lymph % 59.9 % [facility] Lymphocytes Abs 1.0 0.9 - 3.2 x10(3)/mc L [facility] Monocyte % 13.0 % [facility] Monocyte Abs 0.2(L) 0.3 - 0.9 x10(3)/mc L [facility] Eos % 0.6 % [facility] Eosinophils Abs 0.0 0.0 - 0.4 x10(3)/mc L [facility] Basophil % 0.6 % [facility] Baso Absolute 0.0 0.0 - 0.1 x10(3)/ L [facility] Immature Gran % 0.00 % [facility] Comment: Immature granulocytes(IG's)percentage and absolute count will include metamyelocytes, myelocytes, and promyelocytes. Blood smears from CBCs yielding IG's will be scanned manually for concordance. If this scan disagrees with the automated IG or if promyelocytes are noted, a manual differential will be performed. Immature Gran Absolute 0.00 0.00 - 0.04 x10(3)/ L [facility] Blood specimen (specimen) 05/19/2016 11:32 AM EDT 05/19/2016 11:41 AM EDT Narrative Resulting Agency Comment Spec In Lab lAirio Esparza MD HEMATOLOGY ORDERABL ES [facility] [place] [address] * (ABNORMAL) Hemogram (05/19/2016 11:32 AM EDT) White Blood Cell 1.6(Criti gabrielle) 4.0 - 9.5 x10(3)/ L [facility] Comment: This result has been called to DR ALIRIO ESPARZA by Alivia Ibarra on 05 19 2016 at 1228, and has been read back. Red Blood Cell 3.96(L) 4.00 - 5.21 x10(6)/mc L [facility] Hemoglobin 12.5 11.7 - 15.5 gm/dL [facility] Hematocrit 37.9 35.7 - 45.8 % [facility] Mean Cell Volume 95.7(H) 82.6 - 94.4 fL [facility] Mean Cell Hemoglobin 31.6 27.1 - 32.0 pg [facility] Mean Cell Hemoglobin Concentration 33.0 31.7 - 35.0 gm/dL [facility] Platelet 227 145 - 357 x10(3)/mc L [facility] RDW Standard Deviation 40.5 37.0 - 46.0 [facility] RDW coefficient of variation 11.5 11.5 - 14.1 % [facility] Mean Platelet Volume 8.4 7.6 - 12.9 [facility] NRBC% auto 0.0 % [facility] NRBC Absolute 0.000 0.000 - 0.000 x10(3)/ L [facility] Blood specimen (specimen) 05/19/2016 11:32 AM EDT 05/19/2016 11:41 AM EDT Narrative Resulting Agency Comment Spec In Lab Alirio Esparza MD HEMATOLOGY ORDERABL ES [facility] [place] [address] * Antibody screen (05/19/2016 11:32 AM EDT) Ab Screen Interp Negative [facility] Expires at [id number] on: 07/03/2016 [facility] Comment: Corrected from 06/11/16 12:00 [Unknown] on 06/09/16 05:51 by Bethanie Tomlinson I.. Corrected from 07/03/16 12:00 [Unknown] on 05/21/16 06:00 by Shelia Barrera Blood specimen (specimen) 05/19/2016 11:32 AM EDT 05/19/2016 11:35 AM EDT Narrative Resulting Agency Comment Spec In Lab Alirio Esparza MD BLOOD BANK LAB [facility] Performing Organization Address City/[facility]/ZIP Co de Phone Number [facility] [place] [address] * ABO/Rh Typing (05/19/2016 11:32 AM EDT) ABORH Type B Pos [facility] Blood specimen (specimen) 05/19/2016 11:32 AM EDT 05/19/2016 11:35 AM EDT Narrative Resulting Agency Comment Spec In Lab Alirio Esparza MD BLOOD BANK LAB [place] [place] Performing Organization Address [facility] Co de Phone Number [facility] [place] [address] * Basic Metabolic Panel (non-fasting) (05/19/2016 11:32 AM EDT) [facility] Glucose 86 65 - 199 mg/dL [facility] Comment:Diabetes: >=200 mg/d L plus symptoms Blood Urea Nitrogen 13 8 - 18 mg/dL [facility] Creatinine 0.95 0.70 - 1.20 mg/dL [facility] Comment: Please note that the pediatric reference intervals supplied above were not validated at [facility]. Results from pediatric patients should be interpreted in conjunction to the patient's age, height and muscle mass. Sodium 140 135 - 145 mmol/L [facility] Potassium 4.3 3.5 - 5.0 mmol/L [facility] Comment: Please note: ??Patients with WBC >100,000 may have falsely elevated Potassium levels. ??For accurate Potassium quantification in these patients send serum separator tube (gold top) for subsequent determinations. ??Contact the Clinical Chemistry Laboratory if there are any questions. Chloride 101 98 - 107 mmol/L [facility] Carbon Dioxide 27 22 - 31 mmol/L [facility] Anion Gap 12 5 - 15 mmol/L [facility] Calcium 10.1 8.5 - 10.5 mg/dL [facility] Est Glomerular Filtration Rate 60 >=60 [facility] Comment: [...] the following links into your internet browser. [email or web address] Blood specimen (specimen) 05/19/2016 11:32 AM EDT 05/19/2016 11:41 AM EDT Narrative Resulting Agency Comment Spec In Lab Alirio Esparza MD CHEMISTRY ORDERABLE S [facility] [place] [address] documented in this encounter Visit Diagnoses Diagnosis Nonrheumatic aortic valve stenosis Aortic valve disorders documented in this encounter Care Teams Cable Mock Up Assembler Relationship Specialty Start Date End Date Deborah Quiroga APRN PCP - General Family Medicine 03/24/16 02/04/23 documented as of this encounter
--- OUTSIDE RECORDS SUMMARY | 2024-03-07 14:38 | XMS_ITS | Encounter Summary ---
Author Organization [facility] Address [facility] [place] [address] Care Team Providers Care Overnight Cashier Name Role Phone Ashley Quirogan Sylvia ANURAG Primary Care Provider [phone] Reason for Visit * Consultation (Urgent) - Closed Specialty Diagnoses / Procedures Referred By Crispin t Referred To Contact Cardiac Surgery Diagnoses aortic stenosis, consideration for valve replacement Antelmo Burrell MD [address] [place] [id number] Alirio Esparza MD [facility] [place] [address] Referral ID Status Reason Start Date Expiration Date V isits Requested Visits Authorized [id number] Closed Connection Center 03/04/2016 03/04/2017 1 1 Encounter Details Date Type Department Care Team (Late st Contact Info) Description 03/24/2016 10:40 AM EDT Office [place] [address] Alirio Esparza MD [facility] [place] [address] Aortic valve stenosis, unspecified etiology Social History [...] This is a patient of Antelmo Burrell [facility] Cardiology. Mrs. Thacker is being sent [...] 30 minute visit, 20 minutes were spent [id number] with the patient discussing aortic stenosis and valve replacement. documented in this encounter Plan of Treatment Upcoming Encounters Date Type Department Care Team (Mi st Contact Info) Description 06/05/2024 11:30 AM EST Office [place] [address] Magdalena Peralta MD [facility] [place] [address] 03/01/2025 4:15 PM EDT Office Visit Dermatology at [place] [address] [facility] [place] [address] Marek Bonilla MD [address] [facility] [address] [place] [address] documented as of this encounter Visit Diagnoses Diagnosis Aortic valve stenosis, unspecified etiology documented in this encounter Care Teams Overnight Cashier Relationship Specialty Start Date End Date Deborah Quiroga APRN PCP - General Family Medicine 03/24/16 02/04/23 documented as of this encounter
--- OUTSIDE RECORDS SUMMARY | 2024-03-07 14:38 | XMS_ITS | Encounter Summary ---
Author Organization [facility] Address [facility] [place] [address] Care Team Providers Care White Sugar Supervisor Name Role Phone Deborah Quiroga APRN Primary Care Provider [phone] Encounter Details Date Type Department Care Team (Latest Contact Info) Description 05/19/2016 11:52 AM EDT - 05/19/2016 11:59 PM EDT Hospital Encounter XRay at [address] [place] [address] Alirio Esparza MD [facility] C[place]IOTH[place]ACIC [place] [address] Nonrheumatic aortic valve stenosis Discharge Disposition: Home [...] 11:30 AM EST Office [place] [address] Magdalena Peralta MD [facility] [place] [address] 03/01/2025 4:15 PM EDT Office Visit Dermatology at [place] [address] [facility] [place] [address] Marek Bonilla MD [address] [facility] [place] [address] documented as of this encounter Procedures Procedure [...] disorders documented in this encounter Care Teams White Sugar Supervisor Relationship Specialty Start Date End Date Deborah Quiroga APRN PCP - General Family Medicine 03/24/16 02/04/23 documented as of this encounter
--- OUTSIDE RECORDS SUMMARY | 2024-03-07 14:38 | XMS_ITS | Encounter Summary ---
Author Organization [facility] Address [facility] [place] [address] Care Team Providers Care Game Technician Name Role Phone Deborah Quiroga ANURAG Primary Care Provider [phone] Encounter Details Date Type Department Care Team (Latest Contact Info) Description 08/18/2016 4:40 PM EST Laboratory [place] [phone] Aortic valve stenosis, unspecified etiology Social History [...] 11:30 AM EST Office [place] [phone] Magdalena Peralta MD [facility] [place] [address] 03/01/2025 4:15 PM EDT Office Visit Dermatology at [place] [address] [facility] [place] [phone] Marek Bonilla MD [address] [facility] [address] [place] [address] documented as of this encounter Procedures Procedure Name Priority Date/Time Associated Diagnosis Comments ABORH RECHECK STATUS Routine 08/18/2016 4:50 PM EST TYPE AND SCREEN, SDP (FUTURE SURGERY, [facility] SAME DAY PROGRAM ONLY) Routine 08/18/2016 4:50 PM EST Aortic valve stenosis, unspecified etiology ABO/RH TYPING Routine 08/18/2016 4:50 PM EST Aortic valve stenosis, unspecified etiology ANTIBODY SCREEN Routine 08/18/2016 4:50 PM EST Aortic valve stenosis, unspecified etiology BASIC METABOLIC PANEL Routine 08/18/2016 4:50 PM EST Aortic valve stenosis, unspecified etiology documented in this encounter Results * ABORH Recheck Status (08/18/2016 4:50 PM EST) ABORH Type Recheck Completed [facility] Blood specimen (specimen) 08/18/2016 4:50 PM EST 08/18/2016 5:27 PM EST Narrative Resulting Agency Comment Spec In Lab Alirio Esparza MD BLOOD BANK LAB [place] [place] Performing Organization Address [facility] Co de Phone Number [facility] [place] [address] * Antibody screen (08/18/2016 4:50 PM EST) Ab Screen Interp Negative [facility] Expires at [id number] on: 09/24/2016 [facility] Comment: Corrected from 09/17/16 12:00 [Unknown] on 09/09/16 02:32 by Shireen Treviño Blood specimen (specimen) 08/18/2016 4:50 PM EST 08/18/2016 5:11 PM EST Narrative Resulting Agency Comment Spec In Lab Alirio Esparza MD BLOOD BANK LAB [place] [place] Performing Organization Address City/[facility]/ZIP Co de Phone Number [facility] [place] [address] * ABO/Rh Typing (08/18/2016 4:50 PM EST) ABORH Type B Pos [facility] Blood specimen (specimen) 08/18/2016 4:50 PM EST 08/18/2016 5:11 PM EST Narrative Resulting Agency Comment Spec In Lab Alirio Esparza MD BLOOD BANK LAB [place] [facility] [place] [address] * Basic Metabolic Panel (non-fasting) (08/18/2016 4:50 PM EST) Pathologist [facility] Glucose 82 65 - 199 mg/dL [facility] Comment:Diabetes: >=200 mg/d L plus symptoms Blood Urea Nitrogen 12 8 - 18 mg/dL [facility] Creatinine 0.87 0.70 - 1.20 mg/dL [facility] Comment: Please note that the pediatric reference intervals supplied above were not validated at [facility]. Results from pediatric patients should be interpreted in conjunction to the patient's age, height and muscle mass. Sodium 142 135 - 145 mmol/L [facility] [...] 107 mmol/L [facility] Carbon Dioxide 26 22 - 31 mmol/L [facility] Anion Gap 14 5 - 15 mmol/L [facility] Calcium 9.7 8.5 - 10.5 mg/dL [facility] Est Glomerular Filtration Rate >60 >=60 [...] the following links into your internet browser. [email or web address] Blood specimen (specimen) 08/18/2016 4:50 PM EST 08/18/2016 5:03 PM EST Narrative Resulting Agency Comment Spec In Lab Alirio Esparza MD CHEMISTRY ORDERABLE S [facility] [place] [address] documented in this encounter Visit Diagnoses Diagnosis Aortic valve stenosis, unspecified etiology documented in this encounter Care Teams Game Technician Relationship Specialty Start Date End Date Deborah Quiroga, MANAGER [employer] PCP - General Family Medicine 03/24/16 02/04/23 documented as of this encounter
--- OUTSIDE RECORDS SUMMARY | 2024-03-07 14:38 | XMS_ITS | Encounter Summary ---
Author Organization [facility] Address [facility] [place] [address] Care Team Providers Care Fashion Designer Name Role Phone Deborah Quiroga APRN Primary Care Provider [phone] Encounter Details Date Type Department Care Team (Late st Contact Info) Description 06/16/2016 Orders Only [place]ematology [place] [phone] Nitesh Pina Jr., MD [facility] [address] [place] [address] Cyclical neutropenia Social History Tobacco Use Types [...] 11:30 AM EST Office [place] [address] Magdalena Peralta MD [facility] [place] [address] 03/01/2025 4:15 PM EDT Office Visit Dermatology at [place] [address] [facility] [place] [phone] Marek Bonilla MD [address] [place] [address] RD, [place] [address] documented as of this encounter Visit Diagnoses Diagnosis Cyclical neutropenia Cyclic neutropenia documented in this encounter Care Teams Fashion Designer Relationship Specialty Start Date End Date Deborah Quiroga, ADJUNCT PROFESSOR OF LAW PCP - General Family Medicine 03/24/16 02/04/23 documented as of this encounter
--- OUTSIDE RECORDS SUMMARY | 2024-03-07 14:38 | XMS_ITS | Encounter Summary ---
Author Organization [facility] Address [facility] [place] [address] Care Team Providers Care Supervisor Instrument Mechanics Name Role Phone Junaid, Deborah Shields APRN Primary Care Provider [phone] Reason for Visit * Auth/Cert Specialty Diagnoses / Procedures Referred By Crispin t Referred To Contact Diagnoses AVS Procedures CARDIAC CATHETERIZATION Referral ID Status Reason Start Date Expiration Date Visits Re quested Visits Authorized [id number] 1 1 Encounter Details Date Type Department Care Team (Late st Contact Info) Description 06/03/2016 7:30 AM EDT - 06/03/2016 8:30 AM EDT Surgery [place] [phone] Mario Alberto Escobedo MD [facility] [place] [address] CARDIAC CATHETERIZATION Social History Tobacco Use Types [...] by your doctor, do not take any mgzk-uwl-qamodub medicinesor herbal preparations without first discussing this with your doctor or pharmacist. There is the possibility of side effects and interactions when these are combined. Follow Up Care Who to call with questions or problems If there are any questions or problems that you think might be related to your cardiac cath or angioplasty, contact the program or project administrator application tester by calling [facility] at . * Patient Instructions* Felicia Corrigan - 06/03/2016 9:33 AM EDT Cardiology Instructions Call your doctor if: Chest pain, dyspnea, pain or swelling in legs occurs. If you have non-emergent questions between now and the time of your follow up appointments: -During 8am-5pm Wednesday through Wednesday call [phone] to speak with a nurse in the cardiology clinic -All other times call [phone] and ask to speak to the rabbit dresser application tester. MEDICATIONS - restart your spironolactone, discontinue prior [...] Appointments: Primary care provider: Cardiology: Deborah Hahn, HOME SERVICE DEMONSTRATOR [phone] Follow up as planned or as needed. Dr. Esparza [phone] Other follow-up appointment: Hematology - Dr. Mario [...] 11:30 AM EST Office [place] [address] Magdalena Peralta MD [facility] [place] [address] 03/01/2025 4:15 PM EDT Office Visit Dermatology at [address] [place] [address] Marek Bonilla MD [address] [facility], [place] [address] documented as of this encounter Procedures Procedure [...] Green Tube HOLD (06/03/2016 11:45 AM EDT) [facility] Green Hold Sample in lab. [facility] Blood specimen (specimen) Venous Draw / Unknown 06/03/2016 11:45 AM EDT 06/03/2016 12:12 PM EDT Mario Alberto Escobedo MD CHEMISTRY ORDERABLES Performing Organization Address [facility] Co de Phone Number [facility] [place] [address] * Methylmalonic acid, serum (06/03/2016 11:45 AM EDT) [facility] Methylmalonic Acid (NOVEMBER) 0.21 <=0.40 nmol/mL [facility] Comment: Test Performed by: [facility] [place] [address] Wafer Cleaner: Raymond Chaudhry II, M.D., Ph.D. Blood specimen (specimen) 06/03/2016 11:45 AM EDT 06/03/2016 1:57 PM EDT Narrative Resulting Agency Comment Spec In Lab Mario Alberto Escobedo MD LAB SEND OUT ORDERAB LES Performing Organization Address [facility]/ZIP Co de Phone Number [facility] [place] [address] * Granulocyte Antibody (06/03/2016 11:45 AM EDT) [facility] Granulocyte Ab (NOVEMBER) Negative Not Applicable [facility] Comment: ADDITIONAL INFORMATION Method: Immunofluorescent Assay Performing Laboratory CLIA# [id number] This test was developed and its performance characteristics determined by [facility] in a manner consistent with CLIA requirements. This test has not been cleared or approved by the U.S. Food and Drug Administration. Test Performed by: [address] [address] Wafer Cleaner: Raymond Chaudhry II, M.D., Ph.D. Blood specimen (specimen) 06/03/2016 11:45 AM EDT 06/03/2016 1:57 PM EDT Narrative Resulting Agency Comment Spec In Lab Mario Alberto Escobedo MD LAB SEND OUT ORDERAB LES Performing Organization Address [facility] Co de Phone Number [facility] [place] [address] * TSH (06/03/2016 11:45 AM EDT) Thyroid Stimulating Hormone 2.18 0.27 - 4.20 mcIU/mL [facility] Blood specimen (specimen) 06/03/2016 11:45 AM EDT 06/03/2016 12:11 PM EDT Narrative Resulting Agency Comment Spec In Lab Mario Alberto Escobedo MD CHEMISTRY ORDERABLES Performing Organization Address [facility] Co de Phone Number [facility] [place] [address] * Homocysteine Total, Plasma (06/03/2016 11:45 AM EDT) Homocystine 9 <=15 mcmol/L [facility] Blood specimen (specimen) 06/03/2016 11:45 AM EDT 06/03/2016 12:11 PM EDT Narrative Resulting Agency Comment Spec In Lab Mario Alberto Escobedo MD CHEMISTRY ORDERABLES [facility] [place] [address] * Folate, serum (06/03/2016 11:45 AM EDT) Folate >20.0 4.8 - 24.2 ng/mL [facility] Blood specimen (specimen) 06/03/2016 11:45 AM EDT 06/03/2016 12:04 PM EDT Narrative Resulting Agency Comment Spec In Lab Mario Alberto Escobedo MD CHEMISTRY ORDERABLES Performing Organization Address City/[facility]/ZIP Co de Phone Number [facility] [place] [address] * (ABNORMAL) Sedimentation rate (06/03/2016 11:45 AM EDT) [facility] Sedimentation Rate Automated 41(H) 0 - 20 mm/hr [facility] Blood specimen (specimen) 06/03/2016 11:45 AM EDT 06/03/2016 12:04 PM EDT Narrative Resulting Agency Comment Spec In Lab Mario Alberto Escobedo MD HEMATOLOGY ORDERABLE S Performing Organization Address City/[facility]/ZIP Co de Phone Number [facility] [place] [address] * Lactate Dehydrogenase (06/03/2016 11:45 AM EDT) Lactate Dehydrogenase 164 110 - 220 unit/L [facility] Blood specimen (specimen) 06/03/2016 11:45 AM EDT 06/03/2016 12:11 PM EDT Narrative Resulting Agency Comment Spec In Lab Mario Alberto Escobedo MD CHEMISTRY ORDERABLES Performing Organization Address City/[facility]/ZIP Co de Phone Number [facility] [place] [address] * Comprehensive metabolic panel (non-fasting) (06/03/2016 11:45 AM EDT) Glucose 90 65 - 199 mg/dL [facility] Comment:Diabetes: >=200 mg/d L plus symptoms Blood Urea Nitrogen 11 8 - 18 mg/dL [facility] Creatinine 0.83 0.70 - 1.20 mg/dL [facility] Comment: Please note that the pediatric reference intervals supplied above were not validated at [facility]. Results from pediatric patients should be interpreted in conjunction to the patient's age, height and muscle mass. Sodium 143 135 - 145 mmol/L [facility] Potassium 4.0 3.5 - 5.0 mmol/L [facility] Comment: Please note: ??Patients with WBC >100,000 may have falsely elevated Potassium levels. ??For accurate Potassium quantification in these patients send serum separator tube (gold top) for subsequent determinations. ??Contact the Clinical Chemistry Laboratory if there are any questions. Chloride 104 98 - 107 mmol/L [facility] Carbon Dioxide 25 22 - 31 mmol/L [facility] Anion Gap 14 5 - 15 mmol/L [facility] Calcium 9.2 8.5 - 10.5 mg/dL [facility] Protein, Total 7.0 6.1 - 8.0 gm/dL [facility] Albumin 4.0 3.2 - 5.2 gm/dL [facility] Aspartate Aminotransferase 17 0 - 30 unit/L [facility] Alanine Aminotransferase 9 0 - 30 unit/L [facility] Alkaline Phosphatase 81 40 - 104 unit/L [facility] Bilirubin, Total 0.4 0.2 - 1.3 mg/dL [facility] Bilirubin, Direct 0.1 0.0 - 0.3 mg/dL [facility] Est Glomerular Filtration Rate >60 >=60 [facility] Comment: [...] the following links into your internet browser. [email or web address] Blood specimen (specimen) 06/03/2016 11:45 AM EDT 06/03/2016 12:11 PM EDT Narrative Resulting Agency Comment Spec In Lab Mario Alberto Escobedo MD CHEMISTRY ORDERABLES [facility] [place] [id number] documented in this encounter Visit Diagnoses Diagnosis [...] Until Wed06/03/16 at 0917, Cath (Intra-Procedure), Routine 09 (Given - Provid er: Alirio Hernandez) lidocaine [...] 08 (Given - Provid er: Alirio Hernandez) verapamil (ISOPTIN) injection (CANCELED) ONCE PRN, Starting on Wed06/03/16 at 0853, Until Wed06/03/16 at 0917, Administer over 2 Minutes, Cath (Intra-Procedure) 08 (Given - Provid er: Alirio Hernandez) documented in this encounter Care Teams Supervisor Instrument Mechanics Relationship Specialty Start Date End Date Deborah Quiroga APRN PCP - General Family Medicine 03/24/16 02/04/23 documented as of this encounter
--- OUTSIDE RECORDS SUMMARY | 2024-03-07 14:38 | XMS_ITS | Encounter Summary ---
Author Organization [facility] Address [facility] [place] [address] Care Team Providers Care Skill Training Program Coordinator Name Role Phone Deborah Quiroga APRN Primary Care Provider [phone] Encounter Details Date Type Department Care Team (Late st Contact Info) Description 07/03/2016 External Results Hematology [place] [address] Matthew Cervantes, DO [address] [place] [address] Social History Tobacco Use Types Packs/Day Years [...] 11:30 AM EST Office [place] [address] Magdalena Peralta MD [facility] [place] [address] 03/01/2025 4:15 PM EDT Office Visit Dermatology at [place] [address] [place] [address] Marek Bonilla MD [address] [place] [address] RD, [place] [address] documented as of this encounter Procedures Procedure Name Priority Date/Time Associated Diagnosis Comments BONE MARROW ASPIRATION PERFO RMED WITH BONE MARRROW BIOPSY Routine 06/28/2016 documented in this encounter Results * BONE MARROW ASPIRATION PREFORMED WITH BONE MARRROW BIOPSY (06/28/2016) Matthew Cervantes DO GENERAL SURGI DANIEL ORDERABLES documented in this encounter Visit Diagnoses Not on filedocumented in this encounter Care Teams Skill Training Program Coordinator Relationship Specialty Start Date End Date Deborah Quiroga APRN PCP - General Family Medicine 03/24/16 02/04/23 documented as of this encounter
--- OUTSIDE RECORDS SUMMARY | 2024-03-07 14:38 | XMS_ITS | Encounter Summary ---
Author Organization [facility] Address [facility] [place] [address] Care Team Providers Care Receiving Worker Name Role Phone Deborah Quiroga APRN Primary Care Provider [phone] Encounter Details Date Type Department Care Team (Late st Contact Info) Description 08/18/2016 Orders [place] [address] Alirio Esparza MD [facility] [place] [address] Aortic valve stenosis, unspecified etiology Social History [...] 11:30 AM EST Office [place] [address] Magdalena Peralta MD [facility] [place] [address] 03/01/2025 4:15 PM EDT Office Visit Dermatology at [address] [place] [phone] Marek Bonilla MD [address], [place] [address] documented as of this encounter Results * Basic Metabolic Panel (non-fasting) (08/18/2016 4:50 PM EST) Glucose 82 65 - 199 mg/dL [facility] Comment:Diabetes: >=200 mg/d L plus symptoms Blood Urea Nitrogen 12 8 - 18 mg/dL [facility] Creatinine 0.87 0.70 - 1.20 mg/dL [facility] Comment: Please note that the pediatric reference intervals supplied above were not validated at [facility]. Results from pediatric patients should be interpreted in conjunction to the patient's age, height and muscle mass. Sodium 142 135 - 145 mmol/L [facility] [...] - 107 mmol/L [facility] Carbon Dioxide 26 22 - 31 mmol/L [facility] Anion Gap 14 5 - 15 mmol/L [facility] Calcium 9.7 8.5 - 10.5 mg/dL [facility] Est Glomerular Filtration Rate >60 [...] the following links into your internet browser. [email or web address] Blood specimen (specimen) 08/18/2016 4:50 PM EST 08/18/2016 5:03 PM EST Narrative Resulting Agency Comment Spec In Lab Alirio Esparza MD CHEMISTRY ORDERABLE S Performing Organization Address City/State/[facility] Co de Phone Number [facility] [place] [address] documented in this encounter Visit Diagnoses Diagnosis Aortic valve stenosis, unspecified etiology documented in this encounter Care Teams Receiving Worker Relationship Specialty Start Date End Date Deborah Quiroga APRN PCP - General Family Medicine 03/24/16 02/04/23 documented as of this encounter
--- OUTSIDE RECORDS SUMMARY | 2024-03-07 14:38 | XMS_ITS | Encounter Summary ---
Author Organization [facility] Address [facility] [place] [address] Care Team Providers Care Driver Trainee Name Role Phone Junaid Deborah Shields APRN Primary Care Provider [phone] Encounter Details Date Type Department Care Team (Latest Contact Info) Description 05/19/2016 11:00 AM EDT Clinical [place] [phone] Nonrheumatic aortic valve stenosis Social History Tobacco [...] 11:30 AM EST Office [place] [address] Magdalena Peralta MD [facility] [place] [address] 03/01/2025 4:15 PM EDT Office Visit Dermatology at [place] [address] [place] [address] Marek Bonilla MD [address], [place] [address] documented as of this encounter Procedures Procedure [...] (Bezet) 448 ms MUSE SYSTEM Calculated P Turner 37 degrees MUSE SYSTEM Calculated R Turner 31 degrees MUSE SYSTEM Calculated T Turner 25 degrees MUSE SYSTEM INTERPRETATION Normal sinus rhythm Normal ECG No previous ECGs available Confirmed by MD Becca, Deangelo ([id number]) on 05/19/2016 5:23:33 PM MUSE SYSTEM 05/19/2016 11:4 3 AM EDT 05/19/2016 5:23 PM EDT Alirio Esparza MD ECG ORDERABLES MUSE SYSTEM documented in this encounter Visit Diagnoses Diagnosis Nonrheumatic aortic valve stenosis Aortic valve disorders documented in this encounter Care Teams Driver Trainee Relationship Specialty Start Date End Date Deborah Quiroga APRN PCP - General Family Medicine 03/24/16 02/04/23 documented as of this encounter
--- OUTSIDE RECORDS SUMMARY | 2024-03-07 14:38 | XMS_ITS | Encounter Summary ---
[place] [address] Care Team Providers Care Manager Garden Name Role Phone Deborah Quiroga APRN Primary Care Provider [phone] Reason for Visit * Reason Onset Date Comments Prior Authorization 09/11/2016 Neulasta Encounter Details Date Type Department Care Team (Late st Contact Info) Description 09/11/2016 Telephone Hematology [place] [address] Monica Wick Prior Authorization (Neulasta ) Social [...] AM EST Prior Auth for Neulasta (Approved) [facility] is a covered facility under the members plan. ID# [id number] Call placed to [phone] Rationale: Can you please start a PA for this pt to receive as outpatient at [facility] on 09/16/16? 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 ??Her last ANC was 0.56 (or 560) on 08/04/16. ??This will need to be approved through her medical as out patient. J code for neulasta. ?? [id number]. Spoke w/ Anna Marie Call Reference [id number] Copay: $ Deductible is not met, patient will have out of pocket costs until deductible is met. documented in this encounter Plan of Treatment Upcoming Encounters Date Type Department Care Team (Late st Contact Info) Description 06/05/2024 11:30 AM EST Office [place] [address] Magdalena Peralta MD [facility] [place] [address] 03/01/2025 4:15 PM EDT Office Visit Dermatology at [place] [address] [facility] [place] [address] Marek Bonilla MD [address] [facility] [address], [place] [address] documented as of this encounter Visit Diagnoses Not on filedocumented in this encounter Care Teams Manager Garden Relationship Specialty Start Date End Date Deborah Quiroga APRN PCP - General Family Medicine 03/24/16 02/04/23 documented as of this encounter
--- OUTSIDE RECORDS SUMMARY | 2024-03-07 14:38 | XMS_ITS | Encounter Summary ---
[place] [address] Care Team Providers Care Food Counter Worker Name Role Phone Deborah Quiroga ANURAG Primary Care Provider [phone] Reason for Visit * Reason Onset Date Comments Medical Care Coordination 07/31/2016 Encounter Details Date Type Department Care Team (Late st Contact Info) Description 07/31/2016 Telephone Hematology [place] [address] Alexandrea Greenwood RN Medical Care Coordination Social [...] 08/04/15 RN spoke with Aydee of the [facility] lab who states they can draw pt's cbc on 08/04/15, RN faxed lab req to [phone] at Aydee's request. RN instructed pt on Dr. Borjas's direction above. Pt verbalized understanding. documented in this encounter Plan of Treatment Upcoming Encounters Date Type Department Care Team (Late st Contact Info) Description 06/05/2024 11:30 AM EST Office [place] [address] Magdalena Peralta MD [facility] [place] [address] 03/01/2025 4:15 PM EDT Office Visit Dermatology at [place] [address] [facility] [place] [address] Marek Bonilla MD [address] [facility] [facility] [address] [facility] [address], [place] [address] documented as of this encounter Visit Diagnoses Not on filedocumented in this encounter Care Teams Food Counter Worker Relationship Specialty Start Date End Date Deborah Quiroga APRN PCP - General Family Medicine 03/24/16 02/04/23 documented as of this encounter
--- OUTSIDE RECORDS SUMMARY | 2024-03-07 14:39 | XMS_ITS | Encounter Summary ---
Author Organization [facility] [place] [address] Care Team Providers Care Technical Analyst Name Role Phone Eitan Danni ANURAG Primary Care Provider Encounter Details Date Type Department Care Team (Late st Contact Info) Description 01/23/2014 9:25 AM EDT - 01/23/2014 10:25 AM EDT [place] [address] Alan Jacobson MD [facility] [place] [address] CARDIAC CATHETERIZATION Social History Tobacco Use Types [...] by your doctor, do not take any znjr-cra-rpouucc medicines or herbal preparations without first discussing this with your doctor or pharmacist. There is the possibility of side effect and interactions when these are combined. Follow up Care Who to Call with Questions or Problems If there are any questions or problems that you think might be related to your cardiac cath or angioplasty, contact the wool spotter iron melter by calling [facility] at . documented in [...] AM EST Office Visit Rheumatology at [facility] [place] [place] [address] Magdalena Peralta MD [facility] [place] [address] 03/01/2025 4:15 PM EDT Office Visit Dermatology at [place] [address] [place] [address] Marek Bonilla MD [address], [place] [address] documented as of this encounter Procedures Procedure Name Priority Date/Time Associated Diagnosis Comments ECHOCARDIOGRAM TRANSTHORACIC Routine 01/23/2014 3:17 PM EDT SOB (shortness of breath) documented in this encounter Results * Echocardiogram Transthoracic(Leb) (01/23/2014 3:17 PM EDT) Pathologist [employer] EF 50 HEART[employer] SYSTEM Anatomical Region Laterality Modality Other 01/23/2014 Narrative 01/23/2014 4:35 PM EDT Procedure: ? Transthoracic Echocardiogram Patient: ? ANDREW ECHOLS M ?(Age): 1955(58) Med Rec#: ?[id number] ? Sex: ?F ? [place] ? Ht / Wt: ??158(cm)/93(kg) Pt. Loc: ? Adult Floor ?BSA: ?2.02 Study Date: ?01/23/2014 ? Pt. Type: Inpatient Tape: ? Referring: Lee Kincaid ([id number]) Referring: ANNALISA Manager Building: [facility] Diagnosis:CPT Code(s): ??Echo Full (55367), ??Spectral Doppler (79681), Color Doppler (02145), Indication(s): ??Aortic stenosis Rhythm: Sinus HR ?BP [...] ? Mid-Inferior ?Hypokinetic ? Mid-Inferoseptal ?Hypokinetic ? [place]-Septal ? Hypokinetic ? [place]-Anterior ? Hypokinetic ? [place]-Lateral ?Hypokinetic ? [place]-Inferior ? Hypokinetic ? [place]-Tip ?Hypokinetic ? Chambers ?Value ?Units (Range) ? [...] 01/23/2014 16:34:37 Images reviewed and interpretation verified [facility] Cardiac Ultrasound Laboratory Procedure Note Lee Kincaid MD - 01/23/2014 Procedure: Transthoracic Echocardiogram Patient: ANDREW Mejias (Age): 1955(58) Med Rec#: [id number] Sex: F [place] Loc: [facility] Ht / Wt: 158(cm)/93(kg) Pt. Loc: Adult Floor BSA: 2.02 Study Date: 01/23/2014 Pt. Type: Inpatient Tape: Referring: Lee Kincaid ([id number]) Referring: ANNALISA Manager Building: [facility] Diagnosis:CPT Code(s): Echo Full (49861), Spectral Doppler (04024), Color Doppler (62541), Indication(s): Aortic stenosis Rhythm: Sinus HR BP [...] Hypokinetic Mid-Posterolateral Hypokinetic Mid-Inferior Hypokinetic Mid-Inferoseptal Hypokinetic [place]-Septal Hypokinetic [place]-Anterior Hypokinetic [place]-Lateral Hypokinetic [place]-Inferior Hypokinetic [place]-Tip Hypokinetic Chambers Value Units (Range) IVSd 2D [...] 01/23/2014 16:34:37 Images reviewed and interpretation verified [facility] Cardiac Ultrasound Laboratory Lee [...] RN) documented in this encounter Care Teams Technical Analyst Relationship Specialty Start Date End Date Danni Laird APRN [address] [place] [address] PCP - General 01/23/14 11/11/14 documented as of this encounter
--- OUTSIDE RECORDS SUMMARY | 2024-03-07 14:39 | XMS_ITS | Encounter Summary ---
Author Organization [facility] Address [facility] [place] [address] Care Team Providers Care Supervisor Sulfuric Acid Plant Name Role Phone EitanMagnusDanni ANURAG Primary Care Provider Encounter Details Date Type Department Care Team (Latest Contact Info) Description 01/23/2014 7:45 AM EDT - 01/23/2014 5:50 PM EDT Hospital Encounter [place] [address] Alan Jacobson MD [facility] [place] [address] Cardiomyopathy; SOB (shortness of breath) Discharge Disposition: [...] by your doctor, do not take any anam-rcd-vfztjyj medicines or herbal preparations without first discussing this with your doctor or pharmacist. There is the possibility of side effect and interactions when these are combined. Follow up Care Who to Call with Questions or Problems If there are any questions or problems that you think might be related to your cardiac cath or angioplasty, contact the cardiac exercise specialist supervisor stone by calling [facility] at . documented in this encounter Medications [...] 11:30 AM EST Office [place] [address] Magdalena Peralta MD [facility] [place] [address] 03/01/2025 4:15 PM EDT Office Visit Dermatology at [place] [address] [facility] [place] [address] Marek Bonilla MD [address], [place] [address] documented as of this encounter Procedures Procedure [...] ANDREW ONESIMO M ?(Age): 1955(58) Med Rec#: ?[id number] ? Sex: ?F ? Site Loc: ?[facility] ? Ht / Wt: ??158(cm)/93(kg) Pt. Loc: ? Adult Floor ?BSA: ?2.02 Study Date: ?01/23/2014 ? Pt. Type: Inpatient Tape: ? Referring: Lee Kincaid ([id number]) Referring: ANNALISA Fagot Maker: Miguel Beverly Diagnosis:CPT Code(s): ??Echo Full (99591), ??Spectral Doppler (19466), Color Doppler (40477), Indication(s): ??Aortic stenosis Rhythm: Sinus HR ?BP [...] ? Mid-Inferior ?Hypokinetic ? Mid-Inferoseptal ?Hypokinetic ? [place]-Septal ? Hypokinetic ? [place]-Anterior ? Hypokinetic ? [place]-Lateral ?Hypokinetic ? [place]-Inferior ? Hypokinetic ? [place]-Tip ?Hypokinetic ? Chambers ?Value ?Units (Range) ? [...] Images reviewed and interpretation verified [facility] Cardiac Ultrasound Laboratory Procedure Note Lee Kincaid MD - 01/23/2014 Procedure: Transthoracic Echocardiogram Patient: ANDREW Mejias DOB(Age): 1955(58) Med Rec#: [id number] Sex: F Site Loc: [facility] Ht / Wt: 158(cm)/93(kg) Pt. Loc: Adult Floor BSA: 2.02 Study Date: 01/23/2014 Pt. Type: Inpatient Tape: Referring: Lee Kincaid ([id number]) Referring: AUSTINELIZABETHGerman Fagot Maker: Miguel Beverly Diagnosis:CPT Code(s): Echo Full (03616), Spectral Doppler (14991), Color Doppler (67986), Indication(s): Aortic stenosis Rhythm: Sinus HR BP [...] Hypokinetic Mid-Posterolateral Hypokinetic Mid-Inferior Hypokinetic Mid-Inferoseptal Hypokinetic [place]-Septal Hypokinetic [place]-Anterior Hypokinetic [place]-Lateral Hypokinetic [place]-Inferior Hypokinetic Buffalo-Tip Hypokinetic Chambers Value Units (Range) IVSd 2D [...] Images reviewed and interpretation verified [facility] Cardiac Ultrasound Laboratory Lee Kincaid MD ECHO [...] Plant Relationship Specialty Start Date End Date Danni Laird APRN [address] [place] [address] PCP - General 01/23/14 11/11/14 documented as of this encounter
--- OUTSIDE RECORDS SUMMARY | 2024-03-07 14:39 | XMS_ITS | Encounter Summary ---
[place] [address] Care Team Providers Care Microbiology Supervisor Name Role Phone Mitchell Wilkes MD Primary Care Provider [phone] Reason for Visit * Reason Onset Date Comments Other 01/18/2014 Encounter Details Date Type Department Care Team (Late st Contact Info) Description 01/18/2014 Telephone Cardiology at [address] [address] Jesusita Garces Other Social History [...] EST Office [place] [address] Magdalena Peralta MD [facility] [place] [address] 03/01/2025 4:15 PM EDT Office Visit Dermatology at [place] [address] [facility] [place] [address] Marek Bonilla MD [address], [place] [address] documented as of this encounter Visit Diagnoses Not on filedocumented in this encounter Care Teams Microbiology Supervisor Relationship Specialty Start Date End Date Mitchell Wilkes MD [facility] PCP - General 06/24/10 01/19/14 documented as of this encounter
--- OUTSIDE RECORDS SUMMARY | 2024-03-07 14:39 | XMS_ITS | Encounter Summary ---
Author Organization [facility] [place] [address] Care Team Providers Care Survey Coordinator Name Role Phone EitanDanni ANURAG Primary Care Provider [phone] Encounter Details Date Type Department Care Team (Late st Contact Info) Description 01/22/2014 Telephone Cardiology at [address] [phone] Cynthia Arrington LPN Social History Tobacco Use [...] LPN - 01/23/2014 2:39 PM EDT This health technical writer did not receive a call back [...] 11:30 AM EST Office Visit [place] [address] Magdalena Peralta MD [facility] [place] [address] 03/01/2025 4:15 PM EDT Office Visit Dermatology at [place] [address] [facility] [place] [address] Marek Bonilla MD [address], [place] [address] documented as of this encounter Visit Diagnoses Not on filedocumented in this encounter Care Teams Survey Coordinator Relationship Specialty Start Date End Date Danni Laird APRN [address] [place] [address] PCP - General 01/23/14 11/11/14 documented as of this encounter
--- OUTSIDE RECORDS SUMMARY | 2024-03-07 14:39 | XMS_ITS | Encounter Summary ---
Author Organization [facility] [place] [address] Care Team Providers Care Resource Specialist Name Role Phone Mitchell Wilkes MD Primary Care Provider [phone] Encounter Details Date Type Department Care Team (Late st Contact Info) Description 01/19/2014 Orders Only Cardiology at [address] [address] Chele Randolph, EKATERINA [facility] [address] [place] [address] Cardiomyopathy (Primary Dx) Social History [...] 11:30 AM EST Office [place] [address] Magdalena Peralta MD [facility] DR [place] [address] 03/01/2025 4:15 PM EDT Office Visit Dermatology at [place] [address] [place] [address] Marek Bonilla MD [address], [place] [address] documented as of this encounter Procedures Procedure [...] cardiomyopathies documented in this encounter Care Teams Resource Specialist Relationship Specialty Start Date End Date Mitchell Wilkes MD [facility] PCP - General 06/24/10 01/19/14 documented as of this encounter
[2024-03-09 14:33] VITALS: BP 112/63; PULSE 83
[2024-03-14 13:57] VITALS: BP 104/50; PULSE 74
--- OUTSIDE RECORDS SUMMARY | 2024-03-14 14:05 | XMS_ITS | Encounter Summary ---
Author Organization [facility] Address [address] [place] [address] Care Team Providers Care Scale Clerk Name Role Phone Unavailable Primary Care Provider Unavailabl e Encounter Details Date Type Department Care Team (Late st Contact Info) Description 03/24/2007 11:06 EDT - 03/24/2007 11:59 EDT Hospital Encounter [facility] - Other [address] [place] [address] Ashley Chavez ARNP [address] [place] [address] Discharge Disposition: Home or Self Care Social [...]
--- OUTSIDE RECORDS SUMMARY | 2024-03-14 14:05 | XMS_ITS | Encounter Summary ---
Author Organization [facility] Address [address] [place] [address] Care Team Providers Care Spot Welder Name Role Phone Ashley Chavez Primary Care Provider [phone] Encounter Details Date Type Department Care Team (Late st Contact Info) Description 10/30/2022 Lab Requisition [facility] Pathology & Laboratory Medicine - [address] [address] Outr Resulting Lab, Provider Social History Tobacco [...] Stranded) <12.3 <30.0 IU/mL 11/03/2022 13:08 EDT [facility] Comment: ? Negative: ??<30.0 IU/mL ? Borderline Positive: ??30.0 - 75.0 IU/mL ? Positive: ??>75.0 IU/mL Results were obtained with the INOVA QUANTA Lite dsDNA SC DOMO assay on the [employer] DSX. Blood VENOUS BLOOD / Unknown 10/29/2022 14:00 EDT 10/30/2022 19:27 EDT Provider Outr Resulting Lab IMMUNOLOGY A ND SEROLOGY ORDERABLES Performing Organization Address [facility] de Phone Number [facility] [address] [place] [address] * SM (MORENO) ANTIBODY (10/29/2022 14:00 EDT) [facility] SM (Moreno) Antibody 18.5 <20.0 Units 11/03/2022 14:26 EDT [facility] Comment: ? Negative: <20.0 Units [...] A ND SEROLOGY ORDERABLES Performing Organization Address [facility] de Phone Number [facility] [address] [place] [address] documented in this encounter Visit Diagnoses Not on filedocumented in this encounter Care Teams Spot Welder Relationship Specialty Start Date End Date Ashley Chavez ARNP [address] [place] [address] PCP - General 07/11/10 documented as of this encounter
--- OUTSIDE RECORDS SUMMARY | 2024-03-14 14:05 | XMS_ITS | Encounter Summary ---
Author Organization [facility] Address [address] [place] [address] Care Team Providers Care Wood And Hardware Outfitter Name Role Phone Ashley Chavez Primary Care Provider [phone] Encounter Details Date Type Department Care Team (Latest Contact Info) Description 05/12/2019 13:18 EDT - 05/12/2019 23:59 EDT Hospital Encounter [address] [address] Unknown, Provider, Discharge Disposition: Home or Self Care Social History Tobacco Use Types Packs/Day Years Used Date Smoking Tobacco: Never Assessed Sex and Gender Information Value Date Recorded Sex Assigned at Not on file Gender Identity Not on file Sexual Orientation Not on file documented as of this encounter Discharge Disposition Disposition Code Departure Means Destination Home or Self [facility] documented in this encounter Plan of Treatment Not on file documented as of this encounter Visit Diagnoses Not on filedocumented in this encounter Care Teams Wood And Hardware Outfitter Relationship Specialty Start Date End Date Ashley Chavez ARNP [address] [place] [address] PCP - General 07/11/10 documented as of this encounter
--- OUTSIDE RECORDS SUMMARY | 2024-03-14 14:05 | XMS_ITS | Encounter Summary ---
Author Organization [facility] Address [address] [place] [address] Care Team Providers Care Doughnut Maker Name Role Phone Ashley Chavez Primary Care Provider [phone] Encounter Details Date Type Department Care Team (Late st Contact Info) Description 01/07/2023 Lab Requisition [facility] Pathology & Laboratory Medicine - [address] [address] Outr Resulting Lab, Provider Social History Tobacco [...] 56.2 55.8 - 66.1 % 01/08/2023 11:28 [facility] Albumin g/dL 3.9 3.6 - 5.2 g/dL 01/08/2023 11:28 [facility] Alpha-1 % 5.1(H) 2.9 - 4.9 % 01/08/2023 11:28 [facility] Alpha-1 g/dL 0.40 0.15 - 0.40 g/dL 01/08/2023 11:28 [facility] Alpha-2 % 7.0(L) 7.1 - 11.8 % 01/08/2023 11:28 [facility] Alpha-2 g/dL 0.50 0.50 - 1.00 g/dL 01/08/2023 11:28 [facility] Beta % 12.7 8.4 - 13.1 % 01/08/2023 11:28 [facility] Beta g/dL 0.90 0.60 - 1.20 g/dL 01/08/2023 11:28 [facility] Gamma % 19.0(H) 11.1 - 18.8 % 01/08/2023 11:28 [facility] Gamma g/dL 1.30 0.60 - 1.60 g/dL 01/08/2023 11:28 [facility] SPEP Comment No apparent monoclonal protein seen on serum electrophoresis 01/08/2023 11:28 [facility] Comment:See scanned/suppleme ntary report. Total Protein 6.9 6.3 - 8.2 g/dL 01/08/2023 11:28 [facility] Blood VENOUS BLOOD / Unknown 01/06/2023 14:40 EDT 01/07/2023 17:37 EDT Provider Outr Resulting Lab CHEMISTRY & BLOOD GAS ORDERABLES Performing Organization Address City/State/[facility] Co de Phone Number [facility] [address] [place] [address] * PROTEIN, TOTAL (01/06/2023 14:40 EDT) Blood VENOUS BLOOD / Unknown 01/06/2023 14:40 EDT 01/07/2023 17:37 EDT Provider Outr Resulting Lab CHEMISTRY & BLOOD GAS ORDERABLES Performing Organization Address [facility] Co de Phone Number [facility] [address] [place] [address] * (ABNORMAL) EXTRACTABLE NUCLEAR ANTIGEN PANEL (01/06/2023 14:40 EDT) SSA Antibody 1.3 <20.0 Units 01/08/2023 15:42 EDT [facility] Comment: ? Negative: <20.0 [...] Antibody 1.5 <20.0 Units 01/08/2023 15:42 EDT [facility] Comment: ? Negative: <20.0 [...] Antibody 15.3 <20.0 Units 01/08/2023 15:42 EDT [facility] Comment: ? Negative: <20.0 Units ? Weak Positive: 20.0 - 39.9 Units ? Moderate Positive: 40.0 - 80.0 Units ? Strong Positive: >80.0 Units Results were obtained with the [employer] QUANTA Lite Sm DOMO. ??Sm values obtained with different manufacturers' assay methods may not be used interchangeably. ??The magnitude of the reported IgG levels cannot be correlated to an endpoint titer. PEBBLE MILL OPERATOR Antibody 149.1(H) <20.0 Units 01/08/2023 15:42 EDT [facility] Comment: ? Negative: <20.0 Units ? Weak Positive: 20.0 - 39.9 Units ? Moderate Positive: 40.0 - 80.0 Units ? Strong Positive: >80.0 Units Results were obtained with the [employer] Quanta Lite PEBBLE MILL OPERATOR DOMO. PEBBLE MILL OPERATOR values obtained with different supervisor lending activities's assay methods may not be used interchangeaby. ??The magnitude of the reported IgG levels cannot be be correlated to an endpoint titer. A positive result in the Quanta Lite PEBBLE MILL OPERATOR DOMO indicates the presence of antibodies reactive with the PEBBLE MILL OPERATOR/Sm complex but cannot distinguish between anti-Sm and anti-PEBBLE MILL OPERATOR activity. Blood VENOUS BLOOD / Unknown 01/06/2023 14:40 EDT 01/07/2023 17:37 EDT Provider Outr Resulting Lab IMMUNOLOGY A ND SEROLOGY ORDERABLES [facility] [address] [place] [address] * (ABNORMAL) ANTI NUCLEAR AB (FRANCISCO), IFA (01/06/2023 14:40 EDT) FRANCISCO Interpretation Positive(A) Negative 01/08/2023 15:22 EDT [facility] Comment: Result is equal to or greater than 1:5120. For titers greater than or equal to 1:160 (except the centromere, nucleolar, and dense fine speckled patterns) it is recommended that specific, follow-up autoantibody testing (such as for dsDNA and Extractable Nuclear Antigens) be performed on all diffuse and/or speckled patterns. FRANCISCO Titer and Pattern 1 1:5120 Speckled 01/08/2023 15:22 EDT [facility] Blood VENOUS BLOOD / Unknown 01/06/2023 14:40 EDT 01/07/2023 17:37 EDT Narrative [facility] - 01/08/2023 15:22 EDT Results were obtained with the INOVA NOVA Lite HEp-2 FRANCISCO Kit by indirect immunofluorescence. Provider Outr Resulting Lab IMMUNOLOGY A ND SEROLOGY ORDERABLES Performing Organization Address City/State/[facility] Co de Phone Number [facility] [address] [place] [address] documented in this encounter Visit Diagnoses Not on filedocumented in this encounter Care Teams Doughnut Maker Relationship Specialty Start Date End Date Ashley Chavez ARNP [address] [place] [address] PCP - General 07/11/10 documented as of this encounter
--- OUTSIDE RECORDS SUMMARY | 2024-03-14 14:05 | XMS_ITS | Encounter Summary ---
Author Organization [facility] Address [address] [place] [address] Care Team Providers Care Tire Center Supervisor Name Role Phone Ashley Chavez Primary Care Provider [phone] Encounter Details Date Type Department Care Team (Late st Contact Info) Description 12/17/2021 Lab Requisition [facility] Pathology & Laboratory Medicine - [address] [phone] Outr Resulting Lab, Provider Social History Tobacco [...] ND SEROLOGY ORDERABLES Performing Organization Address [facility] Co de Phone Number [facility] [address] [place] [address] * (ABNORMAL) ANTI NUCLEAR AB (FRANCISCO), IFA [...] ND SEROLOGY ORDERABLES Performing Organization Address [facility] Co de Phone Number [facility] [address] [place] [address] documented in this encounter Visit Diagnoses Not on filedocumented in this encounter Care Teams Tire Center Supervisor Relationship Specialty Start Date End Date Ashley Chavez ARNP [address] [place] [address] PCP - General 07/11/10 documented as of this encounter
--- OUTSIDE RECORDS SUMMARY | 2024-03-14 14:05 | XMS_ITS | Encounter Summary ---
Author Organization [facility] Address [address] [place] [address] Care Team Providers Care Bull Gang Supervisor Name Role Phone Unavailable Primary Care Provider Unavailabl e Encounter Details Date Type Department Care Team (Late st Contact Info) Description 03/24/2007 Results Only [facility] Non-Invasive Cardiology - [facility] [address] [place], [place] [address] Ashley Chavez ARNP [address] [place] [address] Social History Tobacco Use Types Packs/Day Years [...] ? 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 Accession #: ? [id number] : ? 1955 (Age: 51) ??F ?Collect Date: ? 03/24/2007 Location: ? [facility] ? Receive Date: ? 03/28/2007 Provider: ?ASHLEY THOMAS Copy to: ? Specimen/Source: ?ThinPrep Pap Test, [employer], processed on [employer] ThinPrep Imaging System, with manual evaluation Last [...] Ashley THOMAS PATHOLOGY ORDERABLES PAUL ARELLANO [address] [place] [address] documented in this encounter Visit Diagnoses Not on filedocumented in this encounter
--- OUTSIDE RECORDS SUMMARY | 2024-03-14 14:05 | XMS_ITS | Clinical Summary ---
Author Organization [facility] Address [address] [place] [address] Care Team Providers Care Mechanical Shop Laborer Name Role Phone Ashley Chavez Primary Care Provider [phone] Social History Tobacco Use Types Packs/Day Years [...] COVID-19 Vaccine (2022-24 season) 2023 Care Teams Mechanical Shop Laborer Relationship Specialty Start Date End Date Ashley Chavez ARNP [address] [place] [address] PCP - General 07/11/10
--- OUTSIDE RECORDS SUMMARY | 2024-03-14 14:05 | XMS_ITS | Encounter Summary ---
Author Organization [facility] Address [address] [place] [address] Care Team Providers Care Medical Policy Specialist Name Role Phone Ashley Chavez Primary Care Provider [phone] Encounter Details Date Type Department Care Team (Late st Contact Info) Description 05/12/2022 Lab Requisition [facility] Pathology & Laboratory Medicine - [address] [id number] Outr Resulting Lab, Provider Social History Tobacco [...] 14:32 EDT) Hold Hold 05/12/2022 22:46 EDT [facility] Blood VENOUS BLOOD / Unknown 05/12/2022 14:32 EDT 05/12/2022 21:40 EDT Provider Outr Resulting Lab LAB INFO SER VICE AND SUPPORT & PHONE RESULT Performing Organization Address [facility]/ZIP Co de Phone Number [facility] [address] [place] [address] * (ABNORMAL) HOMOCYSTEINE (05/12/2022 14:32 EDT) Homocysteine 14.7(H) 5.0 - 13.9 umol/L 05/13/2022 9:05 EDT [facility] Comment:Results may be false ly elevated if sample is not collected on ice or is not removed from cells within 1 hour of collection. Blood VENOUS BLOOD / Unknown 05/12/2022 14:32 EDT 05/12/2022 21:40 EDT Narrative [facility] - 05/13/2022 9:05 EDT [...] & BLOOD GAS ORDERABLES Performing Organization Address [facility] Co de Phone Number [facility] [address] [place] [address] * HAPTOGLOBIN (05/12/2022 14:32 EDT) Pathologist [facility] [place] Haptoglobin 138 32 - 197 mg/dL 05/13/2022 9:55 EDT [facility] Blood VENOUS BLOOD / Unknown 05/12/2022 14:32 EDT 05/12/2022 21:36 EDT Provider Outr Resulting Lab CHEMISTRY & BLOOD GAS ORDERABLES Performing Organization Address [facility] Co de Phone Number [facility] [address] [place] [address] * (ABNORMAL) ANTI NUCLEAR AB (FRANCISCO), IFA (05/12/2022 14:32 EDT) FRANCISCO Interpretation Positive(A) Negative 05/13/2022 14:44 EDT [facility] Comment: Result is equal to or greater than 1:5120. For titers greater than or equal to 1:160 (except the centromere, nucleolar, and dense fine speckled patterns) it is recommended that specific, follow-up autoantibody testing (such as for dsDNA and Extractable Nuclear Antigens) be performed on all diffuse and/or speckled patterns. FRANCISCO Titer and Pattern 1 1:5120 Speckled 05/13/2022 14:44 EDT [facility] Blood VENOUS BLOOD / Unknown 05/12/2022 14:32 EDT 05/12/2022 21:36 EDT Narrative [facility] - 05/13/2022 14:44 EDT Results were obtained with the INOVA NOVA Lite HEp-2 FRANCISCO Kit by indirect immunofluorescence. Provider Outr Resulting Lab IMMUNOLOGY A ND SEROLOGY ORDERABLES [facility] [address] [place] [address] documented in this encounter Visit Diagnoses Not on filedocumented in this encounter Care Teams Medical Policy Specialist Relationship Specialty Start Date End Date Ashley Chavez ARNP [address] [place] [address] PCP - General 07/11/10 documented as of this encounter
--- OUTSIDE RECORDS SUMMARY | 2024-03-14 14:05 | XMS_ITS | Encounter Summary ---
Author Organization [facility] Address [address] [place] [address] Care Team Providers Care Precision Filer Hand Name Role Phone Ashley Chavez Primary Care Provider [phone] Encounter Details Date Type Department Care Team (Late st Contact Info) Description 04/29/2022 Lab Requisition [facility] Pathology & Laboratory Medicine - [address] [address] Outr Resulting Lab, Provider Social History Tobacco [...] Antibody 1.6 <20.0 Units 04/30/2022 12:23 EDT [facility] Comment: ? Negative: <20.0 [...] A ND SEROLOGY ORDERABLES Performing Organization Address [facility] de Phone Number [facility] [address] [place] [address] * SSA ANTIBODIES BY DOMO (04/29/2022 7:51 EDT) SSA Antibody 1.5 <20.0 Units 04/30/2022 12:22 EDT [facility] Comment: ? Negative: <20.0 [...] SEROLOGY ORDERABLES Performing Organization Address [facility] de Phone Number [facility] [address] [place] [address] documented in this encounter Visit Diagnoses Not on filedocumented in this encounter Care Teams Precision Filer Hand Relationship Specialty Start Date End Date Ashley Chavez ARNP [address] [place] [address] PCP - General 07/11/10 documented as of this encounter
--- OUTSIDE RECORDS SUMMARY | 2024-03-14 14:05 | XMS_ITS | Encounter Summary ---
Author Organization [facility] Address [address] [place] [address] Care Team Providers Care House Supervisor Name Role Phone Scott Ashley WILLIAM Primary Care Provider [phone] Encounter Details Date Type Department Care Team (Late st Contact Info) Description 05/12/2019 Results Only [facility]- [facility] [phone] Nadira Gregorio MD [address] [place] [phone] Social History Tobacco Use Types Packs/Day [...] ? 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 Accession #: ? [id number] ? : ? 1955 (Age: 63) ??F ? Collect Date: ? 05/12/2019 ? Location: ? [facility] ? Receive Date: ? 05/12/2019 ? Provider: NADIRA GREGORIO MD Copy to: WINTER HANKINS SPINNER CONCRETE PIPE ? Final Pathologic Diagnosis: COLON, CECUM, POLYP, [...] (ASCP) 05/12/2019 6:08 PM End of Report [facility] 05/12/2019 16:0 3 EDT 05/12/2019 16:03 EDT Nadira Gregorio MD PATHOLOGY ORDERABLES [facility] [address] [place] [address] documented in this encounter Visit Diagnoses Not on filedocumented in this encounter Care Teams House Supervisor Relationship Specialty Start Date End Date Ashley Chavez ARNP [address] [place] [address] PCP - General 07/11/10 documented as of this encounter
--- OUTSIDE RECORDS SUMMARY | 2024-03-14 14:05 | XMS_ITS | Encounter Summary ---
Author Organization [facility] Address [address] [place] [address] Care Team Providers Care Dish Maker Name Role Phone Ashley Chavez Primary Care Provider [phone] Encounter Details Date Type Department Care Team (Late st Contact Info) Description 06/23/2016 Results Only [facility]- [facility] [phone] Matthew Acevedo, DO [address] [facility] [place] [address] [place] [address] Social History Tobacco Use Types Packs/Day [...] ? 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 Accession #: ? [id number] : ? 1955 (Age: 60) ??F ?Collect [...] ??400 ?? KARYOTYPE: 46,XX[25] End of Report [facility] 06/23/2016 06/24/2016 Matthew Acevedo DO PATHOLOGY ORDER JODIE [facility] [address] [place] [address] * FLOW CYTOMETRY (06/23/2016 0:00 EST) Pathology Report: FLOW CYTOMETRY REPORT Reports generated via electronic interface contain original data; however they are lacking the format of the original report. Caution should be taken when reading/interpreting unformatted reports. Name: ? 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 Accession #: ? [id number] : ? 1955 (Age: 60) ??F ?Collect Date: ? 06/23/2016 00:00 Location: ? [facility] ? Receive Date: ? 06/24/2016 08:00 Provider: ?MATTHEW ACEVEDO DO Copy to: ?WINTER HANKINS MOLDING ASSOCIATE MARIO ALBERTO RAMOS MD ? FINAL IMMUNOPHENOTYPIC INTERPRETATION: ? Bone marrow, flow cytometric analysis: -No immunophenotypic evidence of a clonal cell population. ??See comment. ? COMMENT: The results of flow cytometry show no immunophenotypic evidence of involvement by a clonal lymphoproliferative or myeloproliferative disorder. ??Correlation of these findings with morphologic and clinical data is essential. ??Please refer to pathology report number [id number] for morphologic details. ? Document reviewed and [...] the Department of Pathology and Laboratory Medicine, [place], [place] ??It has not been cleared or [...] clinical laboratory testing. End of Report ?? [facility] 06/23/2016 06/24/2016 8:0 0 EST Matthew Acevedo DO PATHOLOGY ORDER JODIE [facility] [address] [place] [address] * BONE MARROW/HEMPATH CONSULT (06/23/2016 0:00 EST) Pathology Report: BONE MARROW REPORT Reports generated via electronic interface contain original data; however they are lacking the format of the original report. Caution should be taken when reading/interpreting unformatted reports. Name: ? 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 Accession #: ? [id number] : ? 1955 (Age: 60) ??F ?Collect Date: ? 06/23/2016 Location: ? [facility] ? Receive Date: ? 06/24/2016 Provider: ? MATTHEW ACEVEDO DO Copy to: ?WINTER HANKINS MOLDING ASSOCIATE MARIO ALBERTO RAMOS MD ? DIAGNOSIS: Peripheral [...] #1: Aggregate biopsy length: 8 mm with pipelines superintendent trabeculae of lamellar bone, cellular bone marrow, [...] SEE ABOVE DISCUSSION Lambda (polyclonal, Dako) ??(B1): [place] (polyclonal, Dako) ??(B1): Biopsy (decalcified) #2: Aggregate biopsy length: 8 mm with pipelines superintendent trabeculae of lamellar bone, cellular bone marrow, [...] (M115, Leica) ??(B2): Lambda (polyclonal, Dako) ??(B2): [place] (polyclonal, Dako) ??(B2): NOTE: ??One or more [...] performance characteristics have been determined by [facility]. ??The positive and negative controls [...] ? 1% Blasts ?1% Special Studies Cytogenetics ([id number]): Pending. Flow Cytometry ([id number]): No immunophenotypic evidence of a clonal cell population. ? End of Report [facility] 06/23/2016 06/24/2016 Matthew Acevedo DO PATHOLOGY ORDER JODIE [facility] [address] [place] [address] documented in this encounter Visit Diagnoses Not on filedocumented in this encounter Care Teams Dish Maker Relationship Specialty Start Date End Date Ashley Chavez ARNP [address] [place] [address] PCP - General 07/11/10 documented as of this encounter
--- OUTSIDE RECORDS SUMMARY | 2024-03-14 14:05 | XMS_ITS | Encounter Summary ---
Author Organization [facility] Address [address] [place] [address] Care Team Providers Care Etl Bi Developer Name Role Phone Unavailable Primary Care Provider Unavailabl e Encounter Details Date Type Department Care Team (Late st Contact Info) Description 06/29/2007 Results Only [facility] - Maple conversion [address] [place] [address] Sánchez Acevedo MD [address] [place] [address] Social History Tobacco Use Types Packs/Day Years [...] ? 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 Accession #: ? [id number] ? : ? 1955 (Age: 51) ??F [...] covered by a smooth white serosa. ??Three sales representative facility services sections of the gallbladder are submitted in one cassette. ??(Sriram Elias/[facility] End of Report [facility] 06/29/2007 06/29/2007 21: 23 EST Sánchez Acevedo MD PATHOLOGY ORDERABLE [facility] [address] [place] [address] documented in this encounter Visit Diagnoses Not on filedocumented in this encounter
--- OUTSIDE RECORDS SUMMARY | 2024-03-14 14:05 | XMS_ITS | Encounter Summary ---
Author Organization [facility] Address [address] [place] [address] Care Team Providers Care Pharmacist Name Role Phone Scott Ashley WILLIAM Primary Care Provider [phone] Encounter Details Date Type Department Care Team (Late st Contact Info) Description 11/10/2013 Results Only [facility]- [facility] [phone] Jeni Laird, OBSTETRICS GYNECOLOGY MD [address] [place], [place] [phone] Social History Tobacco Use Types Packs/Day Years [...] ? 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 Accession #: ? [id number] : ? 1955 (Age: 58) ??F ?Collect Date: ? 11/10/2013 Location: ? [facility] ? Receive Date: ? 11/14/2013 Provider: ?JENI LAIRD OBSTETRICS GYNECOLOGY MD Copy to: ? Specimen/Source: ?Pap Test, Endocervix, [...] Report [facility] 11/10/2013 11/14/2013 Jeni Laird OBSTETRICS GYNECOLOGY MD PATHOLOGY ORDERAB LES Performing Organization Address City/State/[facility] Co de Phone Number [facility] [address] [place] [address] documented in this encounter Visit Diagnoses Not on filedocumented in this encounter Care Teams Pharmacist Relationship Specialty Start Date End Date Ashley Chavez ARNP [address] [place] [address] PCP - General 07/11/10 documented as of this encounter
--- OUTSIDE RECORDS SUMMARY | 2024-03-14 14:05 | XMS_ITS | Referral Summary ---
Author Organization [facility] Address [address] [place] [address] Care Team Providers Care Case Folder Name Role Phone Ashley Chavez Primary Care Provider [phone] Social History Tobacco Use Types Packs/Day Years Used Date Smoking Tobacco: Never Assessed Interpersonal Safety Answer Date Record ed Physically Hurt Never 03/03/2020 Verbally Threaten Not on file 03/03/2020 Sex and Gender Information Value Date Recorded Sex Assigned at Not on file Gender Identity Not on file Sexual Orientation Not on file Plan of Treatment Not on file Care Teams Case Folder Relationship Specialty Start Date End Date Ashley Chavez ARNP [address] [place] [address] PCP - General 07/11/10
--- OUTSIDE RECORDS SUMMARY | 2024-03-14 14:05 | XMS_ITS | Encounter Summary ---
Author Organization [facility] Address [address] [place] [address] Care Team Providers Care Asset Administrator Name Role Phone Unavailable Primary Care Provider Unavailabl e Encounter Details Date Type Department Care Team (Late st Contact Info) Description 04/20/2005 Results Only [facility] - Maple conversion [address] [place] [address] Ziggy Valiente MD [address] [place] [phone] Social History Tobacco Use Types Packs/Day Years [...] ? 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 Accession #: ? [id number] ? : ? 1955 (Age: 49) ??F [...] correlation with endoscopic appearance is recommended. (Dr. Chino)/[facility] Document reviewed and electronically signed by: [...] is entirely submitted in one cassette. ??(Arabella Santos)/[facility] End of Report [facility] 04/20/2005 04/21/2005 15: 04 EDT Ziggy Valiente MD PATHOLOGY ORDERABLES [facility] [address] [place] [address] documented in this encounter Visit Diagnoses Not on filedocumented in this encounter
--- OUTSIDE RECORDS SUMMARY | 2024-03-14 14:05 | XMS_ITS | Encounter Summary ---
Author Organization [facility] Address [address] [place] [address] Care Team Providers Care Paper Bundler Name Role Phone Unavailable Primary Care Provider Unavailabl e Encounter Details Date Type Department Care Team (Late st Contact Info) Description 07/08/2010 Results Only [facility] Non-Invasive Cardiology - [facility] [address] [place] [address] Ashley Chavez, WILLIAM [address] [place] [address] Social History Tobacco Use Types Packs/Day Years [...] ? 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 Accession #: ? [id number] ? : ? 1955 (Age: 54) ??F [...] Ashley THOMAS PATHOLOGY ORDERABLES [facility] [address] [place] [address] documented in this encounter Visit Diagnoses Not on filedocumented in this encounter
--- OUTSIDE RECORDS SUMMARY | 2024-03-14 14:05 | XMS_ITS | Encounter Summary ---
Author Organization [facility] Address [address] [place] [address] Care Team Providers Care Sign Builder Supervisor Name Role Phone Scott, Ashley WILLIAM Primary Care Provider [phone] Encounter Details Date Type Department Care Team (Late st Contact Info) Description 12/23/2016 Results Only [facility]- [facility] [phone] Deborah Quiroga, RN PALLIATIVE CARE [address] [place] [phone] Social History Tobacco Use Types Packs/Day Years [...] ? 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 Accession #: ? [id number] ? : ? 1955 (Age: 61) ??F ?Collect Date: ? 12/23/2016 ? Location: ? [facility] ? Receive Date: ? 12/25/2016 ? Provider: DEBORAH QUIROGA PINEAPPLE PLANTATION MANAGER Copy to: ? Final Report SPECIMEN ADEQUACY ? Satisfactory for Evaluation - transformation zone component present GENERAL CATEGORIZATION ? Negative for Intraepithelial Lesion or Malignancy ?? Last Menstrual Period: years Specimen/Source: ??Pap Test, Cervix, ThinPrep Imaging System with manual evaluation Document reviewed and electronically signed by: ? Monica Cason [facility](ASCP) ? Report ??Date: 01/06/2017 09:11 HPV with Pap Test ? Date Ordered: ? 01/06/2017 ? Status: ?? Signed Out ?Date Complete: ? 01/07/2017 ? By: ??System Interface ? Date Reported: ? 01/07/2017 ? Interpretation RESULT: Negative for HPV. No E6 or E7 mRNA is detected from HPV types 16,18,31,33,35, 39,45,51,52,56,58, 59,66, and 68 by skin peeling machine operator mediated amplification. Comments Document reviewed and electronically signed by: ? System Interface ? Report date: 01/07/2017 By the signature above, the attending physician certifies that he/she has personally conducted a gross and/or microscopic examination of the described specimens and rendered or confirmed the above diagnosis. End of Report [facility] 12/23/2016 12/25/2016 Deborah Quiroga RN PALLIATIVE CARE PATHOLOGY ORDERABLES [facility] [address] [place] [address] documented in this encounter Visit Diagnoses Not on filedocumented in this encounter Care Teams Sign Builder Supervisor Relationship Specialty Start Date End Date Ashley Chavez ARNP [address] [place] [address] PCP - General 07/11/10 documented as of this encounter
--- OUTSIDE RECORDS SUMMARY | 2024-03-14 14:05 | XMS_ITS | Encounter Summary ---
Author Organization [facility] Address [address] [place] [address] Care Team Providers Care Internal Control Specialist Name Role Phone Unavailable Primary Care Provider Unavailabl e Encounter Details Date Type Department Care Team (Late st Contact Info) Description 07/08/2010 10:55 EST - 07/08/2010 10:56 EST Hospital Encounter [facility] - Other [address] [place] [address] Ashley Chavez, WILLIAM [address] [place] [address] Discharge Disposition: Home or Self Care Social [...]
--- OUTSIDE RECORDS SUMMARY | 2024-03-14 14:06 | XMS_ITS | Encounter Summary ---
[place] [address] Care Team Providers Care Multifold Operator Name Role Phone Magdalena Acosta MD Primary Care Provider [phone] Encounter Details Date Type Department Care Team [...] Care Team (Late st Contact Info) Description 03/01/2025 4:15 PM EDT Office Visit Dermatology at [place] [address] [place] [address] Marek Bonilla MD [address], TODD A DERMATOLOGY [place], [place] [phone] documented as of this encounter Visit Diagnoses Not on filedocumented in this encounter Care Teams Multifold Operator Relationship Specialty Start Date End Date Magdalena Acosta MD [address] [place] [address] PCP - General Family Medicine 02/05/23 documented as of this encounter
--- OUTSIDE RECORDS SUMMARY | 2024-03-14 14:06 | XMS_ITS | Encounter Summary ---
Author Organization Counts Include [address] [place] [address] Care Team Providers Care Tax Associate Name Role Phone Magdalena Acosta MD Primary Care Provider [phone] Encounter Details Date Type Department Care Team (Late st Contact Info) Description 05/27/2023 Refill Cardiology at [address] [phone] Vero Marrero, RN Social History Tobacco Use Types Packs/Day Years Used Date Smoking Tobacco: Never Smokeless Tobacco: Never Alcohol Use Standard Drinks/Week Comments No 0 (1 standard drink = 0.6 oz pur e alcohol) none [facility] Inpatient Questions Answer Date Recorded [...] EDT TC to Nurse Sosa at [facility] to relay response from Jay Maza copied below. Nurse Sosa states they will send a new prescription to patient's preferred pharmacy and call the patient with the medication information. No print prescription sent to update med list. May 27, 2023 Jay Maza PA to [place] 05/27/23 2:44 PM OK to change ticagrelor to Clopidogrel. Now, she should be taking ticagrelor 90mg BID. When she switches, she can take ticagrelor, then the next morning, stop ticagrelor, instead take clopidogrel 300mg once, then after that 75mg once daily. Jay Marrero bag maker Clinic at [facility] [phone] * Telephone Encounter - Vero Marrero RN - 05/27/2023 1:46 PM EDT VM received from triage nurse Sosa at [facility] [place] stating patient was seen today by Dr. [...] more affordable option, if possible. Vero Marrero RN Cardiology Clinic at [facility] [phone] documented in this encounter Plan of Treatment Upcoming Encounters Date Type Department Care Team (Late st Contact Info) Description 03/01/2025 4:15 PM EDT Office Visit Dermatology at [place] [address] [place] [phone] Marek Bonilla MD [address], [place] [address] documented as of this encounter Visit Diagnoses Diagnosis Aortic valve stenosis, etiology of cardiac valve disease unspecified documented in this encounter Care Teams Tax Associate Relationship Specialty Start Date End Date Magdalena Acosta MD [address] [place] [address] PCP - General Family Medicine 02/05/23 documented as of this encounter
--- OUTSIDE RECORDS SUMMARY | 2024-03-14 14:06 | XMS_ITS | Encounter Summary ---
Author Organization [facility] Address [facility] [place] [address] Care Team Providers Care Surgical Dental Assistant Name Role Phone Magdalena Acosta MD Primary Care Provider [phone] Encounter Details Date Type Department Care Team (Late st Contact Info) Description 07/29/2023 11:00 AM EST [place] [address] Magdalena Peralta MD [facility] [address] [place] [address] Mixed connective tissue disease Social History Tobacco [...] 1:5120 speckled; VIC negative; Myositis panel with NURSE'S COMPANION ab 149.1 (positive); Anti U1RNP IgG 119; [...] Viramontes. Magdalena Peralta MD Rheumatology Fellow Pager: [phone] * Kia Viramontes DO - 07/29/2023 11:00 AM EST ATTENDING ADDENDUM The patient's history was reviewed, and I interviewed and examined the patient with Dr. Peralta I agree with her summary, findings, and plan. documented in this encounter Plan of Treatment Upcoming Encounters Date Type Department Care Team (Late st Contact Info) Description 03/01/2025 4:15 PM EDT Office Visit Dermatology at [place] [address] [facility] [place] [address] Marek Bonilla MD [address] [facility] [place] [address] documented as of this encounter Results * [...] PFT FEV1/FVC Pre-BD Z-Score 0 COMPAS PFT DXH61-33 Actual Pre-BD 2.41 % COMPAS PFT ABP27-63 Predicted 1.8 % COMPAS PFT RNP90-59 Pre-BD % of Predicted 134 % COMPAS PFT AFN69-51 Pre-BD Z-Score 0.81 COMPAS PFT DLCO Hb [...] tissue documented in this encounter Care Teams Surgical Dental Assistant Relationship Specialty Start Date End Date Magdalena Acosta MD [address] [place] [address] PCP - General Family Medicine 02/05/23 documented as of this encounter
--- OUTSIDE RECORDS SUMMARY | 2024-03-14 14:06 | XMS_ITS | Encounter Summary ---
Author Organization [place] [address] Care Team Providers Care Kelp Or Seagrass Gatherer Name Role Phone Magdalena Acosta MD Primary Care Provider Reason for Visit * Reason Comments Aortic Stenosis Coronary Artery Disease Hypertension Encounter Details Date Type Department Care Team (Latest Contact Info) Description 11/16/2023 11:40 AM EDT TH Visit (TeleHealth) Cardiology at [address] [address] Jay Maza PA [facility] [place] [address] Aortic valve stenosis, etiology of cardiac valve disease unspecified; Coronary artery disease, unspecified vessel or lesion type, unspecified whether angina present, unspecified whether [place] or transplanted heart Social History Tobacco Use Types Packs/Day Years Used Date Smoking Tobacco: Never Smokeless Tobacco: Never Alcohol Use Standard Drinks/Week Comments No 0 (1 standard drink = 0.6 oz pur e alcohol) none [facility] Inpatient Questions Answer Date [...] [facility] - [facility]) Problem List: Aortic valve stenosis: prior [...] fraction I35.0 Mild coronary artery disease by [facility] 11/09/2022 I25.10 Heart failure with [...] notable for coronary artery protection given low rdwsw-tj-wkbmhtgd distance. There was no obstruction post Valve [...] had a very reassuring recent echo in [facility], in scanned docs. LVEF 55%. Valve [...] leads Confirmed by MD Harshil, Haris Bell ([id number]) on 05/10/2023 8:11:46 AM Cardiac Cath 11/09/2022 [...] in one year. EKATERINA Thompson Time spent: [id number] 0-5min [id number] 6-10min 6367TWJ2 11-15min x [id number] 16-20min [id number] 21-30min 3060NME2 31-40min [id number] 40+ min Jay Maza PA-C Interventional Cardiology [facility] Pager [phone] documented in this encounter Plan of Treatment Upcoming Encounters Date Type Department Care Team (Late st Contact Info) Description 03/01/2025 4:15 PM EDT Office Visit Dermatology at [address] [place] [address] Maerk Bonilla MD [address] [facility], [place] [address] documented as of this encounter Visit Diagnoses Diagnosis Aortic valve stenosis, etiology of cardiac valve disease unspecified Coronary artery disease, unspecified vessel or lesion type, unspecified whether angina present, unspecified whether [place] or transplanted heart documented in this encounter Care Teams Kelp Or Seagrass Gatherer Relationship Specialty Start Date End Date Magdalena Acosta MD [address] [place] [address] PCP - General Family Medicine 02/05/23 documented as of this encounter
--- OUTSIDE RECORDS SUMMARY | 2024-03-14 14:06 | XMS_ITS | Encounter Summary ---
[place] [address] Care Team Providers Care Heel Coverer Machine Operator Name Role Phone Magdalena Acosta MD Primary Care Provider [phone] Encounter Details Date Type Department Care Team (Latest Contact Info) Description 07/08/2023 12:35 PM EST Laboratory Appointment Lab [address] [place] [address] S/P TAVR (transcatheter aortic valve [...] 4:15 PM EDT Office Visit Dermatology at [place] [address] [facility] [place] [phone] Marek Bonilla MD [address], [place] [address] (work) documented as of this encounter Procedures Procedure [...] 11:56 AM EST) Neutrophil % 73.2 % [facility] Neutrophil Absolute 3.40 1.70 - 6.10 x10(3)/mc L [facility] Lymph % 16.1 % [facility] Lymphocytes Abs 0.8(L) 0.9 - 3.2 x10(3)/mc L [facility] Monocyte % 9.7 % [facility] Monocyte Abs 0.4 0.3 - 0.9 x10(3)/mc L [facility] Eos % 0.4 % [facility] Eosinophils Abs 0.0 0.0 - 0.4 x10(3)/mc L [facility] Basophil % 0.4 % [facility] Baso Absolute 0.0 0.0 - 0.1 x10(3)/mc L [facility] Immature Gran % 0.20 % [facility] Comment: Immature granulocytes(IG's)percentage and absolute count will include metamyelocytes, myelocytes, and promyelocytes. Blood smears from CBCs yielding IG's will be scanned manually for concordance. If this scan disagrees with the automated IG or if promyelocytes are noted, a manual differential will be performed. Immature Gran Absolute 0.01 0.00 - 0.04 x10(3)/mc L [facility] Blood 07/08/2023 11:5 6 AM EST 07/08/2023 12:02 PM EST Narrative Resulting Agency Comment Spec In Lab Minh TOBAR HEMATOLOGY ORDERABLE S [facility] [place] [address] * (ABNORMAL) Hemogram (07/08/2023 11:56 AM EST) White Blood Cell 4.6 4.0 - 9.5 x10(3)/mc L [facility] Red Blood Cell 3.34(L) 4.00 - 5.21 x10(6)/mc L [facility] Hemoglobin 11.0(L) 11.7 - 15.5 g/dL [facility] Hematocrit 33.2(L) 35.7 - 45.8 % [facility] Mean Cell Volume 99.4(H) 82.6 - 94.4 fL [facility] Mean Cell Hemoglobin 32.9(H) 27.1 - 32.0 pg [facility] Mean Cell Hemoglobin Concentration 33.1 31.7 - 35.0 g/dL [facility] Platelet 166 145 - 357 x10(3)/mc L [facility] RDW Standard Deviation 47.1(H) 37.0 - 46.0 fL [facility] RDW coefficient of variation 13.0 11.5 - 14.1 % [facility] Mean Platelet Volume 9.0 7.6 - 12.9 fL [facility] NRBC% auto 0.0 % [facility] NRBC Absolute 0.000 0.000 - 0.000 x10(3)/mc L [facility] Blood 07/08/2023 11:5 6 AM EST 07/08/2023 12:02 PM EST Narrative Resulting Agency Comment Spec In Lab Minh TOBAR HEMATOLOGY ORDERABLE S [facility] [place] [address] * (ABNORMAL) Comprehensive metabolic panel (non-fasting) (07/08/2023 11:56 AM EST) Glucose 93 65 - 199 mg/dL [facility] Comment:Diabetes: >=200 mg/d L plus symptoms Blood Urea Nitrogen 19(H) 8 - 18 mg/dL [facility] Creatinine 0.81 0.70 - 1.20 mg/dL [facility] Sodium 142 135 - 145 mmol/L [facility] Potassium 3.8 3.5 - 5.0 mmol/L [facility] Comment: Please note: ??Patients with WBC >100,000 may have falsely elevated Potassium levels. ??For accurate Potassium quantification in these patients send serum separator tube (gold top) for subsequent determinations. ??Contact the Clinical Chemistry Laboratory if there are any questions. Chloride 104 98 - 107 mmol/L [facility] Carbon Dioxide 26 22 - 31 mmol/L [facility] Anion Gap 12 5 - 15 mmol/L [facility] Calcium 10.2 8.5 - 10.5 mg/dL [facility] Protein, Total 7.4 6.1 - 8.0 g/dL [facility] Albumin 4.1 3.2 - 5.2 g/dL [facility] Aspartate Aminotransferase 24 0 - 30 unit/L [facility] Alanine Aminotransferase 12 0 - 30 unit/L [facility] Alkaline Phosphatase 93 35 - 105 unit/L [facility] Bilirubin, Total 0.3 0.2 - 1.3 mg/dL [facility] Est Glomerular Filtration Rate 80 >=60 mL/min/1. 73 m?? [facility] Comment: This patient's estimated GFR was [...] Lab Alirio Esparza MD CHEMISTRY ORDERABLE S [facility] [place] [address] documented in this encounter Visit Diagnoses Diagnosis S/P TAVR (transcatheter aortic valve replacement) Severe aortic stenosis Aortic valve disorders documented in this encounter Care Teams Heel Coverer Machine Operator Relationship Specialty Start Date End Date Magdalena Acosta MD [address] [place] [address] PCP - General Family Medicine 02/05/23 documented as of this encounter
--- OUTSIDE RECORDS SUMMARY | 2024-03-14 14:06 | XMS_ITS | Encounter Summary ---
[place] [address] Care Team Providers Care Temporary Staff Accountant Name Role Phone Magdalena Acosta MD Primary Care Provider [phone] Reason for Visit * Reason Onset Date Comments Pre Procedure Call 03/01/2024 DAPT hold for EGD and colo? Encounter Details Date Type Department Care Team (Late st Contact Info) Description 03/01/2024 Telephone Cardiology at [address] [phone] Cynthia Monsalve RN Pre Procedure Call (DAPT hold for EGD and colo?) Social History Tobacco Use Types Packs/Day Years Used Date Smoking Tobacco: Never Smokeless Tobacco: Never Alcohol Use Standard Drinks/Week Comments No 0 (1 standard drink = 0.6 oz pur e alcohol) none [facility] Inpatient Questions Answer Date Recorded Does [...] safe. Jay Message above left with Yenifer (insurance billing specialist), who would be leaving this note in patient's chart for providers to schedule patient. No further questions or needs at this time. This nurse stated, note will be placed regarding this call in our chart for patient. Kezia Whitney RN, BSN Ambulatory Cardiology Clinic, [facility] [phone] * Telephone Encounter - Cynthia Monsalve RN - 03/01/2024 2:09 PM EDT Nurse Veronica from [facility] called, requesting a hold on ASA and/or Plavix for the patient's anticipated EGD and colonoscopy. -Cynthia Monsalve RN documented in this encounter Plan of Treatment Upcoming Encounters Date Type Department Care Team (Late st Contact Info) Description 03/01/2025 4:15 PM EDT Office Visit Dermatology at [place] [address] [place] [phone] Marek Bonilla MD [address], [place] [address] documented as of this encounter Visit Diagnoses Not on filedocumented in this encounter Care Teams Temporary Staff Accountant Relationship Specialty Start Date End Date Magdalena Acosta MD [address] [place] [address] PCP - General Family Medicine 02/05/23 documented as of this encounter
--- OUTSIDE RECORDS SUMMARY | 2024-03-14 14:06 | XMS_ITS | Encounter Summary ---
Author Organization [facility] [place] [address] Care Team Providers Care Boring Machine Operator Name Role Phone Magdalena Acosta MD Primary Care Provider [phone] Encounter Details Date Type Department Care Team (Late st Contact Info) Description 12/02/2023 11:15 AM EDT Office [place] [address] Magdalena Peralta MD [facility] [place] [address] Mixed connective tissue disease Social History Tobacco [...] 1:5120 speckled; VIC negative; Myositis panel with CORPORATE LAWYER ab 149.1 (positive); Anti U1RNP IgG 119; [...] list of questions that she sent via [facility] ahead of her visit, which we discussed [...] exposure. She has an appointment with her Construction Economist scheduled in January. (Dr Bonilla in [place]) ROS (positives in bold): Gen: no fevers, [...] but I encouraged her to contact her Construction Economist to see if she could have her [...] Dr. Tanisha Peralta MD Rheumatology Fellow Pager: [phone] * Federico Yee MD - 12/02/2023 11:15 [...] 4:15 PM EDT Office Visit Dermatology at [place] [address] [place] [address] Marek Bonilla MD [address] [facility] [place] [address] Scheduled Orders Name Type Priority Associated Diagnoses Orde r Schedule EKG 12 Lead ECG Routine Mixed connective tissue disease Expected: 12/02/2023, Expires: 06/03/2024 documented as of this encounter Visit Diagnoses Diagnosis Mixed connective tissue disease Other specified diffuse disease of connective tissue documented in this encounter Care Teams Boring Machine Operator Relationship Specialty Start Date End Date Magdalena Acosta MD [address] [place] [address] PCP - General Family Medicine 02/05/23 documented as of this encounter
--- OUTSIDE RECORDS SUMMARY | 2024-03-14 14:06 | XMS_ITS | Encounter Summary ---
Author Organization [facility] [place] [address] Care Team Providers Care Industrial Spray Painter Name Role Phone Magdalena Acosta MD Primary Care Provider [phone] Reason for Visit * Reason Comments Coronary Artery Disease Hypertension Aortic Stenosis Encounter Details Date Type Department Care Team (Latest Contact Info) Description 07/20/2023 4:40 PM EST TH Visit (TeleHealth) Cardiology at [address] [address] Jay Maza PA [facility] [place] [address] HFrEF (heart failure with reduced ejection fraction); [...] Maza PA - 07/20/2023 4:40 PM EST [facility] Heart & Vascular [...] lieu of an in person office visit. Parts Assembler: Antelmo Sharma MD ([facility] Cards) Maria Luz Mejia MD ([facility] cards) Problem List: [...] I35.0 Mild coronary artery disease by [facility] 11/09/2022 I25.10 Heart failure with reduced [...] notable for coronary artery protection given low uqmgg-qr-lhignxjl distance. There was no obstruction post Valve deployment, but the stent could not be removed safely, so it was deployed. 4.0 mm x 30mm in left main. She was loaded on brilinta aka ticagrelor. Immediately post valve deployment, chest compressions to circulate central epinephrine which was administered given her hypotension, low LVEF, and low cardiac reserve. Next, the patient was transferred to [facility] for pressor and inotropic support. Pressors weaned overnight. Cardiac indices by thermodilution remained greater than 3 with continued Milrinone 0.125 mcg/kg/min. EKG the next day with NSR with stable AR/QRS intervals. Hemoglobin 7.8 today from 8.5, likely [...] arms and wrists. Successful right transfemoral TAVR Sprxa-sv-Ujgle with a 23 mm Lai 3 THV. [...] leads Confirmed by MD Harshil, Haris Bell ([id number]) on 05/10/2023 8:11:46 AM Cardiac Cath 11/09/2022 [...] in chart review and direct patient contact. [id number] 0-5min 8548YRI2 6-10min 0406BFA0 11-15min 1887AWF0 16-20min x 4409IEC1 21-30min 8078WES9 31-40min 9702HZF0 40+ min Jay Maza PA-C Interventional Cardiology [facility] Heart [facility] Vascular [facility] Pager [phone] documented in this encounter Plan of Treatment Upcoming Encounters Date Type Department Care Team (Late st Contact Info) Description 03/01/2025 4:15 PM EDT Office Visit Dermatology at [place] [address] [place] [address] Marek Bonilla MD [address], [place] [address] documented as of this encounter Visit Diagnoses Diagnosis HFrEF (heart failure with reduced ejection fraction) Hypertension, unspecified type Aortic valve stenosis, etiology of cardiac valve disease unspecified documented in this encounter Care Teams Industrial Spray Painter Relationship Specialty Start Date End Date Magdalena Acosta MD [address] [place] [address] PCP - General Family Medicine 02/05/23 documented as of this encounter
--- OUTSIDE RECORDS SUMMARY | 2024-03-14 14:06 | XMS_ITS | Encounter Summary ---
[place] [address] Care Team Providers Care Senior Oracle Applications Developer Name Role Phone Magdalena Acosta MD Primary Care Provider [phone] Encounter Details Date Type Department Care Team [...] 4:15 PM EDT Office Visit Dermatology at [place] [address] [facility] [place] [place] [address] Marek Bonilla MD [address], TODD A DERMATOLOGY [place], [place] [phone] documented as of this encounter Visit Diagnoses Not on filedocumented in this encounter Care Teams Senior Oracle Applications Developer Relationship Specialty Start Date End Date Magdalena Acosta MD [address] [place] [address] PCP - General Family Medicine 02/05/23 documented as of this encounter
--- OUTSIDE RECORDS SUMMARY | 2024-03-14 14:06 | XMS_ITS | Encounter Summary ---
[place] [address] Care Team Providers Care Dumper Operator Name Role Phone Magdalena Acosta MD Primary Care Provider [phone] Encounter Details Date Type Department Care Team [...] 4:15 PM EDT Office Visit Dermatology at [place] [address] [facility] [place] [address] Marek Bonilla MD [address], TODD A DERMATOLOGY [place], [place] [address] documented as of this encounter Visit Diagnoses Not on filedocumented in this encounter Care Teams Dumper Operator Relationship Specialty Start Date End Date Magdalena Acosta MD [address] [place] [address] PCP - General Family Medicine 02/05/23 documented as of this encounter
--- OUTSIDE RECORDS SUMMARY | 2024-03-14 14:06 | XMS_ITS | Clinical Summary ---
Author Organization [facility] Address [facility] [place] [address] Care Team Providers Care Public Speaking Coach Name Role Phone Magdalena Acosta MD Primary Care Provider [phone] Allergies No known active allergies Medications Medication [...] fraction 05/08/2023 Mild coronary artery disease by [facility] 11/09/2022 Heart failure with reduced e [...] Care Team Description 03/01/2024 Telephone Cardiology at [address] [address] Cynthia Monsalve RN Pre Procedure Call (DAPT hold for EGD and colo?) 02/22/2024 4:15 PM EDT Office Visit Dermatology at [address] [address] Marek Bonilla MD Seborrheic keratosis; Rosacea; Nevus 02/22/2024 Travel 12/16/2023 Orders Only Cardiology at [address] [phone] Antelmo Sharma MD S/P TAVR (transcatheter aortic [...] PM EDT Office Visit Dermatology at [place] [address] [place] [address] Marek Bonilla MD [address], [place] [address] Health Maintenance Due Date Last Done Comments [...] 06/05/2036 06/05/2021 Medical Devices Implanted Type Area Dieing Out Machine Operator Device Identifier Shelf Expiration Date Model / Serial / Lot Valve,Aor,Pericar d,Magna,25mm ([id number]) - [id number] Implanted:Qty: 1 on 09/21/2016 by Alirio Esparza MD at [facility] IMPLANTS N/A: Heart DO NOT USE [employer] - [id number] 06/02/2020 [id number] / / [id number] Cable,Blnt,Ss,38i n ([id number]) - [id number] Implanted:Qty: 4 on 09/21/2016 by Alirio Esparza MD at [facility] IMPLANTS N/A: Chest [employer] - [id number] 04/29/2021 [id number] / / [id number] Patch,Cav,Pericar d,2x5cm ([id number]) (Autoreq) - [id number] Implanted:Qty: 1 on 09/21/2016 by Alirio Esparza MD at [facility] IMPLANTS N/A: Heart DO NOT USE [employer] - [id number] 04/21/2018 [id number] / / [id number] Tavr-05/12/2023 Implanted:Qty: 1 on 05/12/2023 by Antelmo Sharma MD Other Heart [employer] - JAIME LI [id number] / [id number] / Description:[employer]IME [employer] NCES ABBY 3 ULTRA [...] Urea Nitrogen 19(H) 8 - 18 mg/dL [facility] Creatinine 0.81 0.70 - 1.20 [...] ORDERABLE S [facility] [place] [address] * DXA Central Spine, Hip, and/or Whole Body (Generic) (06/05/2021 11:58 AM EDT) PT CLASS O RAD ADMITDTTM RAD PT SYLVIA CULP INFO [id number]^E VERETT^DEBORAH ^E RAD EXAM DESC XDXAC^DEXA SCAN [...] who have questions please contact the health insurance healthcare consultant that requested your imaging first. ? Electronically signed by: Rocael Villatoro MD, [facility] ([phone]), at 06/05/2021 12:00 PM Narrative 06/05/2021 12:00 [...] patients who have questions please contactthe health insurance healthcare consultant that requested your imaging first. Electronically signed by: Rocael Villatoro MD, [facility]([phone]), at 06/05/2021 12:00 PM Deborah Quiroga EMPLOYEE TRAINING SPECIALIST IMG DEXA ORDERABLES * Mammo Screening Cad Bilateral (06/05/2021 11:42 AM EDT) PT CLASS O DH RAD ADMITDTTM DH RAD PT RAD INFO [id number]^EV ERETT^DEBORAH^E DH RAD EXAM DESC MADDSC^SCREEN MAMMO [...] who have questions please contact the health insurance healthcare consultant that requested your imaging first. ? Electronically signed by: Rocael Villatoro MD, [facility] ([phone]), at 06/05/2021 1:27 PM Narrative 06/05/2021 1:27 [...] patients who have questions please contactthe health insurance healthcare consultant that requested your imaging first. Electronically signed by: Rocael Villatoro MD, [facility]([phone]), at 06/05/2021 1:27 PM Deborah Quiroga APRN [...] capacity to make decision: Yes Care Teams Public Speaking Coach Relationship Specialty Start Date End Date Magdalena Acosta MD [address] [place] [address] PCP - General Family Medicine 02/05/23
--- OUTSIDE RECORDS SUMMARY | 2024-03-14 14:06 | XMS_ITS | Encounter Summary ---
Author Organization [facility] [place] [address] Care Team Providers Care Training Personnel Supervisor Name Role Phone Magdalena Acosta MD Primary Care Provider [phone] Reason for Referral * Diagnostic Test (Routine) - New Request Specialty Diagnoses / Procedures Referred By Contac t Referred To Contact Cardiology Diagnoses S/P TAVR (transcatheter aortic valve replacement) Procedures Echocardiogram Transthoracic Antelmo Sharma MD [facility] [address] [facility] [place] [address] Referral ID Status Reason Start Date Expiration Date Visits Requested Visits Authorized [id number] New Request Specialty Service Requested 12/16/2023 12/15/2024 1 1 Encounter Details Date Type Department Care Team (Late st Contact Info) Description 12/16/2023 Orders Only Cardiology at [address] [address] Antelmo Sharma MD [facility] [place] [address] S/P TAVR (transcatheter aortic valve [...] 4:15 PM EDT Office Visit Dermatology at [place] [address] [facility] [place] [phone] Marek Bonilla MD [address] [place] [address] Scheduled Orders Name Type Priority Associated Diagnoses [...] replacement) documented in this encounter Care Teams Training Personnel Supervisor Relationship Specialty Start Date End Date Magdalena Acosta MD [address] [place] [address] PCP - General Family Medicine 02/05/23 documented as of this encounter
--- OUTSIDE RECORDS SUMMARY | 2024-03-14 14:06 | XMS_ITS | Encounter Summary ---
[place] [address] Care Team Providers Care Respiratory Technician Name Role Phone Magdalena Acosta MD Primary Care Provider [phone] Reason for Visit * Reason Comments Annual Exam Encounter Details Date Type Department Care Team (Late st Contact Info) Description 02/22/2024 4:15 PM EDT Office Visit Dermatology at [address] [phone] Marek Bonilla MD [address] [facility] A DERMATOLOGY [place], [place] [id number] Seborrheic keratosis; Rosacea; Nevus Social History Tobacco [...] cutaneous and ocular 3. Previously told by overcoiler that she had corneal tears from her [...] 4:15 PM EDT Office Visit Dermatology at [place] [address] [place] [address] Marek Bonilla MD [address] [facility], [place] [address] documented as of this encounter Visit Diagnoses Diagnosis Seborrheic keratosis Other seborrheic keratosis Rosacea Nevus Benign neoplasm of skin, site unspecified documented in this encounter Care Teams Respiratory Technician Relationship Specialty Start Date End Date Magdalena Acosta MD [address] [place] [address] PCP - General Family Medicine 02/05/23 documented as of this encounter
--- OUTSIDE RECORDS SUMMARY | 2024-03-14 14:06 | XMS_ITS | Encounter Summary ---
Author Organization [facility] [place] [address] Care Team Providers Care Spreading Machine Operator Name Role Phone Magdalena Acosta MD Primary Care Provider [phone] Encounter Details Date Type Department Care Team (Late st Contact Info) Description 07/08/2023 10:15 AM EST Office Visit Cardiology at [address] [phone] Severe aortic stenosis Social History Tobacco Use [...] 4:15 PM EDT Office Visit Dermatology at [place] [address] [place] [address] Marek Bonilla MD [address], [place] [address] documented as of this encounter Procedures Procedure [...] (Bezet) 449 ms MUSE SYSTEM Calculated P [place] 66 degrees MUSE SYSTEM Calculated R [place] 60 degrees MUSE SYSTEM Calculated T [place] 53 degrees MUSE SYSTEM INTERPRETATION Normal sinus rhythm Minimal voltage criteria for LVH, may be normal variant ( Sokolow-Orozco ) ST & T wave abnormality, consider lateral ischemia ??vs. repolarization abnormality from LVH Abnormal ECG When compared with ECG of 13-MAY-2023 09:22, Premature ventricular complexes are no longer Present Minimal criteria for Septal infarct are no longer Present Confirmed by Maxx Best ([id number]) on 07/09/2023 10:07:22 AM MUSE SYSTEM 07/08/2023 10:2 7 AM EST 07/09/2023 10:07 AM EST Brody Kaplan APRN ECG ORDERABLES MUSE SYSTEM documented in this encounter Visit Diagnoses Diagnosis Severe aortic stenosis Aortic valve disorders documented in this encounter Care Teams Spreading Machine Operator Relationship Specialty Start Date End Date Magdalena Acosta MD [address] [place] [address] PCP - General Family Medicine 02/05/23 documented as of this encounter
--- OUTSIDE RECORDS SUMMARY | 2024-03-14 14:06 | XMS_ITS | Encounter Summary ---
[place] [address] Care Team Providers Care Finance And Administration Manager Name Role Phone Magdalena Acosta MD Primary Care Provider [phone] Encounter Details Date Type Department Care Team [...] 4:15 PM EDT Office Visit Dermatology at [place] [address] [facility] [place] [address] Marek Bonilla MD [address], TODD A DERMATOLOGY [place], [place] [phone] documented as of this encounter Visit Diagnoses Not on filedocumented in this encounter Care Teams Finance And Administration Manager Relationship Specialty Start Date End Date Magdalena Acosta MD [address] [place] [address] PCP - General Family Medicine 02/05/23 documented as of this encounter
--- OUTSIDE RECORDS SUMMARY | 2024-03-14 14:06 | XMS_ITS | Encounter Summary ---
[place] [address] Care Team Providers Care Nurse Staff Industrial Name Role Phone Magdalena Acosta MD Primary Care Provider [phone] Encounter Details Date Type Department Care Team [...] 4:15 PM EDT Office Visit Dermatology at [place] [address] [facility] [place] [address] Marek Bonilla MD [address], TODD A DERMATOLOGY [place], [place] [phone] documented as of this encounter Visit Diagnoses Not on filedocumented in this encounter Care Teams Nurse Staff Industrial Relationship Specialty Start Date End Date Magdalena Acosta MD [address] [place] [address] PCP - General Family Medicine 02/05/23 documented as of this encounter
--- OUTSIDE RECORDS SUMMARY | 2024-03-14 14:06 | XMS_ITS | Encounter Summary ---
Author Organization [facility] [place] [address] Care Team Providers Care Roll Hand Name Role Phone Magdalena Acosta MD Primary Care Provider [phone] Reason for Referral * Diagnostic Test (Routine) - Closed Specialty Diagnoses / Procedures Referred By Contac t Referred To Contact Cardiology Diagnoses S/P TAVR (transcatheter aortic valve replacement) Procedures Echocardiogram Transthoracic Vinod Juárez PA [facility] [place] [address] [facility] [place] [address] Referral ID Status Reason Start Date Expiration Date V isits Requested Visits Authorized [id number] Closed Specialty Service Requested 05/22/2023 05/21/2024 1 1 Reason for Visit * Diagnostic Test (Routine) - Closed Specialty Diagnoses / Procedures Referred By Contac t Referred To Contact Cardiology Diagnoses S/P TAVR (transcatheter aortic valve replacement) Procedures Echocardiogram Transthoracic Vinod Juárez PA [facility] [place] [address] [facility] [place] [address] Referral ID Status Reason Start Date Expiration Date V isits Requested Visits Authorized [id number] Closed Specialty Service Requested 05/22/2023 05/21/2024 1 1 Encounter Details Date Type Department Care Team (Latest Contact Info) Description 07/08/2023 10:19 AM EST - 07/08/2023 11:59 PM EST Hospital Encounter Non-Invasive Cardiology Lab [place] [address] Alirio Esparza MD [facility] [address] CARDIOTHORACIC [place] [address] S/P TAVR (transcatheter aortic valve replacement) Discharge [...] PM EDT Office Visit Dermatology at [place] [address] [place] [phone] Marek Bonilla MD [address], [address] [place] [address] documented as of this encounter Procedures Procedure Name Priority Date/Time Associated Diagnosis Comments ECHO LMTD W/O CONTRAST W LMTD SPEC DOPP COLOR DOPP Routine 07/08/2023 12:15 PM EST S/P TAVR (transcatheter aortic valve replacement) documented in this encounter Results * ECHO LMTD W/O CONTRAST W LMTD SPEC DOPP COLOR DOPP (07/08/2023 12:15 PM EST) EF 20 HEARTEnsogo SYSTEM Anatomical Region Laterality Modality Cardiac Other 07/08/2023 10:3 1 AM EST Narrative 07/08/2023 12:26 PM EST 1 [place] [address] ? Echocardiogram Report Name: ONESIMO THACKER ?Study Date: 07/08/2023 10:31 AMBP: 118/60 mmHg ? Patient Location: : 1955 ? Height: 155 cm ? Account: [id number] Age: 67 yrs ? Weight: 74 kg [...] no significant change (post-procedure). Procedure Limited - 24874. Doppler - 07328. Color Doppler - 01307. Satisfactory quality. This study is limited because [...] Note Lee Kincaid MD - 07/08/2023 1 [place] [address] Echocardiogram Report Name: LASHELL THACKEROUISE Magalie Study Date: 310:31 AMBP: 118/60 mmHg Patient Location: : 1955 Height: 155 cm Account: [id number] Age: 67 yrs Weight: 74 kg Gender: [...] is nosignificant change (post-procedure). Procedure Limited - 96809. Doppler - 96592. Color Doppler - 75304. Satisfactoryquality. This study is limited because of [...] replacement) documented in this encounter Care Teams Roll Hand Relationship Specialty Start Date End Date Magdalena Acosta MD [address] [place] [address] PCP - General Family Medicine 02/05/23 documented as of this encounter
--- OUTSIDE RECORDS SUMMARY | 2024-03-14 14:06 | XMS_ITS | Encounter Summary ---
[place] [address] Care Team Providers Care Mutual Fund Sales Agent Name Role Phone Magdalena Acosta MD [...] 4:15 PM EDT Office Visit Dermatology at [place] [address] [place] [address] Marek Bonilla MD [address], TODD A DERMATOLOGY [place], [place] [phone] documented as of this encounter Visit Diagnoses Not on filedocumented in this encounter Care Teams Mutual Fund Sales Agent Relationship Specialty Start Date End Date Magdalena Acosta MD [address] [place] [address] PCP - General Family Medicine 02/05/23 documented as of this encounter
--- OUTSIDE RECORDS SUMMARY | 2024-03-14 14:06 | XMS_ITS | Encounter Summary ---
[place] [address] Care Team Providers Care Compliance Project Manager Name Role Phone Magdalena Acosta MD Primary Care Provider [phone] Encounter Details Date Type Department Care Team (Latest Contact Info) Description 10/05/2023 10:52 AM EST - 10/05/2023 11:59 PM [facility] Hospital [place] [address] Mixed connective tissue disease Discharge Disposition: Home [...] PM EDT Office Visit Dermatology at [place] [address] [place] [address] Marek Bonilla MD [address], [place] [address] documented as of this encounter Procedures Procedure [...] PFT FEV1/FVC Pre-BD Z-Score 0 COMPAS PFT RCA46-06 Actual Pre-BD 2.41 % COMPAS PFT DHT08-81 Predicted 1.8 % COMPAS PFT OAE12-10 Pre-BD % of Predicted 134 % COMPAS PFT UAM47-77 Pre-BD Z-Score 0.81 COMPAS PFT DLCO Hb [...] tissue documented in this encounter Care Teams Compliance Project Manager Relationship Specialty Start Date End Date Magdalena Acosta MD [address] [place] [address] PCP - General Family Medicine 02/05/23 documented as of this encounter
--- OUTSIDE RECORDS SUMMARY | 2024-03-14 14:07 | XMS_ITS | Encounter Summary ---
Author Organization [place] [id number] Care Team Providers Care Eyeglass Fitter Name Role Phone Magdalena Acosta MD Primary Care Provider [phone] Reason for Visit * Auth/Cert (Routine) Specialty Diagnoses / Procedures Referred By Contac t Referred To Contact Diagnoses Symptomatic severe aortic stenosis with low ejection fraction NSTEMI, CHF Haris Chua MD [facility] [place] [address] [facility] Referral ID Status Reason Start Date Expiration Date Visits Re quested Visits Authorized [id number] 1 1 Encounter Details Date Type Department Care Team (Late st Contact Info) Description 05/12/2023 7:35 AM EDT Anesthesia [place] [address] Lynda Mcgowan MD [facility] [place] [address] Alie Park MD [facility] [place] [address] Anesthesia Record Procedure Summary Procedure [...] cephalic vein (lateral side of arm), left; auwk-hps-vvivor catheter system; Anatomical Landmarks; US Not Used; [...] RN LDA Cath/EP Sheath 05/12/23; 0733; 14 Djiboutian (Fr); Right; Femoral; Arterial 05/12/23 0733 by Guerda Bender, RN 05/12/23 0830 by Guerda Bender RN LDA Cath/EP Sheath 05/12/23; 0734; 6 [place]ib[place]ian (Fr); Right; Femoral; Venous 05/12/23 0734 by Guerda Bender RN 05/12/23 0817 by Guerda Bender RN LDA Cath/EP Sheath 05/12/23; 0734; 7 [place]ian (Fr); Left; Femoral; Arterial 05/12/23 0734 by Guerda Bender, RN 05/12/23 0837 by Guerda Bender RN LDA Cath/EP Sheath 05/12/23; 0734; 6 [place]ian (Fr); Left; Femoral; Venous 05/12/23 0734 by [...] Procedure Summary Date: 05/12/23 Room / Location: DESKTOP MANAGER / [facility] CATH LABS Anesthesia Start: 734 Anesthesia Stop: [...] All Anesthesia Providers: Anesthesiologist: Lynda Mcgowan MD Stemhole Borer: Nico Graham MD Vitals Value Taken Time [...] 05/08/2023 ??? Mild coronary artery disease by [facility] 11/09/2022 05/08/2023 ??? Heart failure with reduced [...] IMG S&I N/A 11/09/2022 CORONARY ANGIOGRAPHY; W [facility],POSSIBLE PCI (WRVU 5.6) performed by Nitesh Escobedo MD at [facility] CATH LABS ??? PRO AORTOPLAS FOR SUPRAVALV STEN N/A 09/21/2016 @AORTOPLASTY FOR SUPRAVALVULAR STENOSIS (WRVU 29.33) performed by Alirio Esparza MD at [facility] MAIN OR ??? PRO REPLACEMENT PROSTHETIC AORTIC VALVE OPEN W CARDIOPULMONARY BYPASS HOMOGRF/STENT N/A 09/21/2016 @REPLACE AORTIC VALVE, OPEN, W\CPB, W\PROSTHETIC VALVE (WRVU 41.32) performed by Alirio Esparza MD at [facility] MAIN OR Social History Tobacco Use ??? [...] 3 general, with a(n) intravenous induction Add-on [id number] TAVR. In cardiogenic shock. Has arterial line, [...] 4:15 PM EDT Office Visit Dermatology at [place] [address] [place] [address] Marek Bonilla MD [address], [place] [address] documented as of this encounter Visit Diagnoses [...] mL/hr documented in this encounter Care Teams Eyeglass Fitter Relationship Specialty Start Date End Date Magdalena Acosta MD [address] [place] [address] PCP - General Family Medicine 02/05/23 documented as of this encounter
--- OUTSIDE RECORDS SUMMARY | 2024-03-14 14:07 | XMS_ITS | Encounter Summary ---
[place] [address] Care Team Providers Care Computer Programming Manager Name Role Phone Magdalena Acosta MD Primary Care Provider [phone] Encounter Details Date Type Department Care Team [...] 4:15 PM EDT Office Visit Dermatology at [place] [address] [facility] [place] [address] Marek Bonilla MD [address], TODD A DERMATOLOGY [place], [place] [address] documented as of this encounter Visit Diagnoses Not on filedocumented in this encounter Care Teams Computer Programming Manager Relationship Specialty Start Date End Date Magdalena Acosta MD [address] [place] [address] PCP - General Family Medicine 02/05/23 documented as of this encounter
--- OUTSIDE RECORDS SUMMARY | 2024-03-14 14:07 | XMS_ITS | Encounter Summary ---
[facility] [place] [address] Care Team Providers Care Food And Beverage Associate Name Role Phone Magdalena Acosta MD Primary Care Provider [phone] Reason for Referral * Diagnostic Test (Routine) - Closed Specialty Diagnoses / Procedures Referred By Contac t Referred To Contact Cardiology Diagnoses S/P TAVR (transcatheter aortic valve replacement) Procedures Echocardiogram Transthoracic Vinod Juárez PA [facility] [place] [address] [facility] [place] [address] Referral ID Status Reason Start Date Expiration Date V isits Requested Visits Authorized [id number] Closed Specialty Service Requested 05/22/2023 05/21/2024 1 1 * Home Health Care (Routine) - Closed Specialty Diagnoses / Procedures Referred By Contac t Referred To Contact Diagnoses S/P TAVR (transcatheter aortic valve replacement) Alirio Hudson MD [facility] CARDIOTHOR[place] [address] [facility] [address] [place] [address] Referral ID Status Reason Start Date Expiration Date V isits Requested Visits Authorized [id number] Closed Consult, Test & Treat 05/22/2023 11/18/2023 999 999 * Consultation (Routine) - Closed Specialty Diagnoses / Procedures Referred By Crispin maxwell Referred To Contact Cardiology Diagnoses S/P TAVR (transcatheter aortic valve replacement) Alirio Hudson MD [facility] [place] [address] Cardiac Rehab, [facility] [address] [place] [address] [place] [address] Referral ID Status Reason Start Date Expiration Date V isits Requested Visits Authorized [id number] Closed Consult, Test & Treat 05/22/2023 11/18/2023 36 36 * Diagnostic Test (Routine) - Closed Specialty Diagnoses / Procedures Referred By Crispin maxwell Referred To Contact Cardiology Diagnoses Aortic valve stenosis, etiology of cardiac valve disease unspecified Procedures Echocardiogram Transthoracic Transesophageal Echocardiogram (YUSRA) Radha Hollins MD [facility] [place] [address] [facility] [place] [address] Referral ID Status Reason Start Date Expiration Date V isits Requested Visits Authorized [id number] Closed Specialty Service Requested 05/11/2023 05/10/2024 1 1 Reason for Visit * Auth/Cert (Routine) Specialty Diagnoses / Procedures Referred By Crispin maxwell Referred To Contact Diagnoses Symptomatic severe aortic stenosis with low ejection fraction NSTEMI, CHF Enrique Chua MD [facility] [place] [address] [facility] Referral ID Status Reason Start Date Expiration Date Visits Re quested Visits Authorized [id number] 1 1 Encounter Details Date Type Department Care Team (Latest Contact Info) Description 05/08/2023 9:14 AM EDT - 05/22/2023 10:46 AM EDT Hospital Encounter Heart and Vascular Unit Level 4 [place] [address] Enrique Chua MD [facility] [place] [address] Juan Luis Gonzalez MD [facility] [place] [address] Radha Hollins MD [facility] [place] [address] Alirio Hudson MD [facility] DR CARDIOTHORACIC [place] [address] S/P TAVR (transcatheter aortic valve replacement) (Primary Dx); Aortic valve stenosis, etiology of cardiac valve disease unspecified; Symptomatic severe aortic stenosis with low ejection fraction; Heart failure with reduced ejection fraction due to heart valve disease; Mild coronary artery disease by [facility] 11/09/2022; Mixed connective tissue disease; [...] Patient Age: 67 y.o. Birthdate: 1955 Language: Setswana Race: White Ethnicity: Not nor Admit Date: 05/08/2023 Discharge Date: 05/22/2023 Attending Physician: Alirio Hudson MD Follow-up Recommendations for Providers: Please continue routine management of cardiovascular risk factors including blood pressure, lipids,glucose, etc. Please note any medication changes. Patient to follow up with PCP, Magdalena Acosta MD, or Primary Tying Machine Operator Lumber, Maria Luz Mejia MD, in ~ 7-10 days. Patient to follow up with Cafeteria Associate, Dr. Antelmo Sharma, in 2 weeks with an EKG, Echo, CBC, and CMP. Patient to follow up with Nephrology, their office to arrange. Zzqa-Tyoyfh-cl interval: After initial 30 day follow-up appointment , all TAVR patients will follow-up again in one year with an echo. 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 11/09/2022 Heart failure with reduced [...] Tube Placement Right 05/18/2023 Laure Ricks PA [facility] INTERVENTIONL RAD PRG CATH PLMT LEFT HEART CATH & ARTS W/INJ & ANGIO IMG S&I N/A 11/09/2022 CORONARY ANGIOGRAPHY; W [facility],POSSIBLE PCI (WRVU 5.6) performed by Mario Alberto Escobedo MD at [facility] CATH LABS PRG COMBINED RIGHT & LEFT HEART CATH W/INJ L VENTRICULOGRAPHY, IMG S&I N/A 05/12/2023 COMBINED RIGHT & LEFT HEART CATH,INC INJ FOR L VENTRICULOGRAPHY (WRVU 5.99) performed by Antelmo Sharma MD at [facility] CATH LABS PRO AORTOPLAS FOR SUPRAVALV STEN N/A 09/21/2016 @AORTOPLASTY FOR SUPRAVALVULAR STENOSIS (WRVU 29.33) performed by Alirio Hudson MD at [facility] MAIN OR PRO REPLACE AORTIC VALVE (TAVR/FEDERICO)PERC FEMORAL ARTERY APPROACH 05/12/2023 @TRANSCATHETER AORTIC VALVE REPLACEMENT (TAVR), PERCUTANEOUS FEMORAL (WRVU 22.47) performed by Alirio Hudson MD at [facility] CATH LABS PRO REPLACEMENT PROSTHETIC AORTIC VALVE OPEN W CARDIOPULMONARY BYPASS HOMOGRF/STENT N/A 09/21/2016 @REPLACE AORTIC VALVE, OPEN, W\CPB, W\PROSTHETIC VALVE (WRVU 41.32) performed by Alirio Hudson MD at [facility] MAIN OR Prior To Admission Medications [...] Major Procedures/Operations: 05/12/23: Successful right transfemoral TAVR Rnucv-vp-Uxuui with a 23 mm Ali 3 THV. Left coronary protection with left main MINNA. Hospital Course: #Severe prosthetic s/p valve in valve TF TAVR #Low coronary heights s/p left main stent for coronary protection #Type 2 NSTEMI, present on arrival, resolved #Acute decompensated HFrEF #Cardiogenic shock #EVANS / Cardiorenal syndrome Purnima Thacker was admitted to [facility] on 05/08/2023 via the Cardiology Service [...] TAVR and she was brought to the clinical laboratory manager the following morning where Drs. [...] if you have questions. Please call your Cafeteria Associate's office if you have any discharge or drainage from your procedural sites. Your Cafeteria Associate, Dr. Antelmo Sharma and/or the Campus Director may be reached at . Antibiotic prophylaxis: You will need to take antibiotics prior to many invasive tests and treatments, such as dental cleaning, which should be done every 6 months. Your primary care physician or your dentist can prescribe this medication. Please refer to the card with the [place] [employer] Guidelines for more information. You have been provided with a copy of this card. Please refer to the [place] [employer] Guidelines for more information. Good [...] friends, go to a movie, go to gnosticism, etc. Heavy activities: No hunting, skiing, jogging, [...] should resume a low fat, low cholesterol, [place] [employer] Diet Driving: No restrictions. Shower/Bath: You may shower daily. No baths, soaking, or swimming for the first week. Wound care: Wash the sites daily with soap and rinse well, pat dry. Assess for any signs of infection such as increased redness, pain, warmth or drainage. Please call your engineer system administrator's office if you have any discharge or drainage from your procedural sites. If there is a lot of swelling, apply mamta wraps during the day and remove at bedtime. Elevate your legs when you are sitting. Home oxygen therapy: N/A Follow up appointments: Please schedule a follow-up appointment with your PCP, Magdalena Acosta MD, or Primary Tying Machine Operator Lumber in ~ 7-10 days. You have a follow-up appointment with your Cafeteria Associate, Dr. Antelmo Sharma, in 2 weeks with an EKG, Echo, and labs prior to your appointment. You will need follow-up with Nephrology, their office will arrange. Jvbj-Obxjve-wd interval: After initial 30 day follow-up appointment , all TAVR patients will follow-up again in one year with an echo. Cardiac Rehabilitation: Purnima Thacker was seen today regarding participation in the outpatient Phase 2 Cardiac Rehabilitation at [facility]. The patient agrees to a referral to this program. The referral will be sent at discharge and the patient should be contacted by the Program within 1- 2 weeks from discharge. Future Appointments and Orders Future Appointments and Orders Future Appointments Provider Department Dept Phone 07/29/2023 11:00 AM Magdalena Peralta MD Rheumatology at [facility] Arrive at: Job Order Clerk Area [phone] 02/11/2024 2:00 PM Marek Bonilla MD Dermatology at [place] Arrive at: [facility] [address] [phone] Future Orders Complete By Expires Type and Screen Future Surgery, [facility] SAME DAY PROGRAM ONLY) [[id number] Custom] 05/11/2023 Process Instructions: This test is intended ONLY for patients with upcoming surgery for testing prior to the day of surgery obtained through the same day program (4V or SDP). For ALL OTHER PATIENTS, order a Type and Screen (ROO238) This order includes the physician order for an ABO Recheck if requested by the Blood Bank. Scheduling Instructions: Comments: Questions: Date of surgery: CBC (with Diff) [COG340 Custom] 06/05/2023 12/05/2023 Process Instructions: INCLUDES: WBC, RBC, Hgb, Hct, Platelets, RBC Indices and Differential Scheduling Instructions: Comments: Questions: Comprehensive metabolic panel (non-fasting) [LAB17 Custom] 06/05/2023 08/20/2023 Process Instructions: INCLUDES: Calcium, T Protein, Albumin, AST, ALT, Alk Phos, T Bili, BUN, Creat, GFR, Glucose, Lytes. Scheduling Instructions: Comments: Questions: Echocardiogram Transthoracic [95937 CPT(R)] 06/05/2023 12/05/2023 Process Instructions: Scheduling Instructions: Questions: Where will study be performed?: [facility] Clinics Does the patient have Congenital Heart Disease?: Does patient require sedation?: GA rationale: EKG 12 Lead [58887 CPT(R)] 06/05/2023 12/05/2023 Process Instructions: Scheduling Instructions: Questions: Which location will this be performed?: [place] Is a rhythm strip needed?: No [facility] Devices [EQ161 Custom] As directed Process Instructions: Scheduling Instructions: Questions: Device Needed: WALKER (E0143) Patient Height (cm): 154.9 cm (5' 0.98) Patient Weight: 75.4 kg (166 lb 3.2 oz) Diagnosis: Unsteady gait when walking Referral to Cardiac Rehab [LSH416 Custom] As directed Process Instructions: If no progress note charted, please enter Clinical details in comments. Scheduling Instructions: Questions: My question or request is: s/p TAVR. Cardiac rehab at [facility]. Referral to Home Health [REF34 Custom] As directed Process Instructions: If no progress note charted, please enter Clinical details in comments. Scheduling Instructions: Comments: DOCUMENTATION FOR VNA SERVICES PATIENT'S LOCATION: Purnima Thacker [address] [place] [phone] (home) Quality Assurance Intern's Name: Irineo and brother Raymond In discussion with the attending physician, it is certified that this patient is under his/her careand that MD, or an JAVA ENTERPRISE ARCHITECT, MILITARY EDUCATION COORDINATOR, or PA who is working directly with him/her, had a nehn-xn-blcb encounter that meets the physician llve-pi-ebtp encounter requirements with this patient on 05/22/2023. [...] AGENCY: [facility] [place] [address] PHONE: [phone] FAX: [phone] Start of care: Ideally 24-48 hours after [...] Magdalena Acosta MD [address] / [facility] [phone] All VNA agencies which cover the area of patient's residence have been reviewed, either verbally joao writing, and patient has chosen the home health care agency noted. Questions: Disciplines Requested: Physical Therapy Occupational Therapy Discharge References/Attachments None Arrangements for VNA/home care: As above. (delete if no VNA) Signed: EKATERINA NAVARRETE [facility] Section of Cardiac Surgery Date: 05/22/2023 CC: Magdalena Acosta MD ColliersMario Alberto MD [address] [place] [address] documented in this encounter Discharge Instructions * Patient Instructions* Vinod Juárez PA - 05/22/2023 9:32 AM EDT TAVR Discharge Instructions: Call your doctor if: You have a fever of greater than 101 degrees, shaking chills, if you develop redness or drainage from your procedure sites, or if you have questions. Please call your Cafeteria Associate's office if you have any discharge or drainage from your procedural sites. Your Cafeteria Associate, Dr. Antelmo Sharma and/or the Campus Director may be reached at . Antibiotic prophylaxis: You will need to take antibiotics prior to many invasive tests and treatments, such as dental cleaning, which should be done every 6 months. Your primary care physician or your dentist can prescribe this medication. Please refer to the card with the [place] [employer] Guidelines for more information. You have been provided with a copy of this card. Please refer to the [place] [employer] Guidelines for more information. Good [...] friends, go to a movie, go to gnosticism, etc. Heavy activities: No hunting, skiing, jogging, [...] should resume a low fat, low cholesterol, [place] [employer] Diet Driving: No restrictions. Shower/Bath: You may shower daily. No baths, soaking, or swimming for the first week. Wound care: Wash the sites daily with soap and rinse well, pat dry. Assess for any signs of infection such as increased redness, pain, warmth or drainage. Please call your engineer system administrator's office if you have any discharge or drainage from your procedural sites. If there is a lot of swelling, apply mamta wraps during the day and remove at bedtime. Elevate your legs when you are sitting. Home oxygen therapy: N/A Follow up appointments: Please schedule a follow-up appointment with your PCP, Magdalena Acosta MD, or Primary Tying Machine Operator Lumber in ~ 7-10 days. You have a follow-up appointment with your Cafeteria Associate, Dr. Antelmo Sharma, in 2 weeks with an EKG, Echo, and labs prior to your appointment. You will need follow-up with Nephrology, their office will arrange. Vdns-Jofkcg-lm interval: After initial 30 day follow-up appointment , all TAVR patients will follow-up again in one year with an echo. Cardiac Rehabilitation: Purnima hTacker was seen today regarding participation in the outpatient Phase 2 Cardiac Rehabilitation at [facility]. The patient agrees to [...] ins ( tef) Haven Ba, PT Pager: [phone] Physical Therapy Inpatient Rehabilitation Department * Nico [...] 0600 and on the weekends please page [phone]. * Jory Paniagua - 05/20/2023 3:52 PM [...] vomiting Last Bowel Movement: 05/20/23 Jory Paniagua Brush Worker * Tong Mike, OT - 05/20/2023 3:16 [...] Tube Placement Right 05/18/2023 Laure Ricks PA [facility] INTERVENTIONL RAD PRG CATH PLMT LEFT HEART CATH & ARTS W/INJ & ANGIO IMG S&I N/A 11/09/2022 CORONARY ANGIOGRAPHY; W [facility],POSSIBLE PCI (WRVU 5.6) performed by Mario Alberto Escobedo MD at [facility] CATH LABS PRG COMBINED RIGHT & LEFT HEART CATH W/INJ L VENTRICULOGRAPHY, IMG S&I N/A 05/12/2023 COMBINED RIGHT & LEFT HEART CATH,INC INJ FOR L VENTRICULOGRAPHY (WRVU 5.99) performed by Antelmo Sharma MD at [facility] CATH LABS PRO AORTOPLAS FOR SUPRAVALV STEN N/A 09/21/2016 @AORTOPLASTY FOR SUPRAVALVULAR STENOSIS (WRVU 29.33) performed by Alirio Hudson MD at [facility] MAIN OR PRO REPLACE AORTIC VALVE (TAVR/FEDERICO)PERC FEMORAL ARTERY APPROACH 05/12/2023 @TRANSCATHETER AORTIC VALVE REPLACEMENT (TAVR), PERCUTANEOUS FEMORAL (WRVU 22.47) performed by Alirio Hudson MD at [facility] CATH LABS PRO REPLACEMENT PROSTHETIC AORTIC VALVE OPEN W CARDIOPULMONARY BYPASS HOMOGRF/STENT N/A 09/21/2016 @REPLACE AORTIC VALVE, OPEN, W\CPB, W\PROSTHETIC VALVE (WRVU 41.32) performed by Alirio uHdson MD at [facility] MAIN OR Social History: Patient lives alone. Home Setup: Pt lives on one level with tub shower and three steps to enter. DME: none used SPACE OPERATIONS OFFICER Baseline ADL/Mobility: Independent with ADLs and IADLs. [...] awareness: WFL Vision & Perception: corrective lenses real time analyst Communication: WFL Range of motion, strength, coordination: [...] Discharge Disposition (OT): swing bed rehabilitation facility, correction facility(vs home with support for IADLs) Other [...] Discharge planning. Total Minutes, Occupational Therapy: 28 (3450-6168) OT Evaluation Code Rationale: Diagnosis & Pertinent Co-Morbidities affecting Plan of Care: see PMHx Occupational Profile & Client History: Brief Expanded Extensive x Assessment of Occupational Performance: 1-3 performance deficits 3-5 performance deficits x 5 + performance deficits Clinical Decision Making: Low Moderate High x Clinical decision making of moderate complexity using standardized patient assessment instrument and measurable assessment of functional outcome. Pager: [phone] TONG MIKE OT 05/20/2023 Occupational Therapy Rehabilitation [...] 0600 and on the weekends please page [phone]. * Rylie Rodriguez MD - 05/19/2023 3:59 [...] and plan. Cynthia Blackburn MD Nephrology Pager: [phone] * Diana Espino - 05/19/2023 1:49 PM EDT Electronic Commerce Specialist Encounter Note Patient Name: Purnima Thacker : [id number] MR#: [id number] Admit Date: 05/08/2023 9:14 AM Hospital Day [...] returning home alone. Anticipated Discharge Disposition (PT): correction facility, swing bed rehabilitation facility Consult Recommendations: [...] as stated. Total Minutes, Physical Therapy: 38 (8626-3607) Henrik Navarrete, SPACE OPERATIONS OFFICER Pager: [phone] Physical Therapy Inpatient Rehabilitation Department * Nico [...] 0600 and on the weekends please page [phone]. * Laure Ricks PA - 05/19/2023 7:56 [...] Ricks PA-C Interventional Radiology IR Team Pager [phone] * Consuelo Espinoza RN - 05/18/2023 4:13 PM EDT ANGIO NURSING DATABASE Name: Purnima Thacker Date of : 1955 AGE: 67 y.o. Address: [address] [place] [phone] (home) Mobile: No relevant phone numbers on file. Referring Provider: Mario Alberto H Colliers REASON FOR VISIT: Order Questions Answers Is [...] coronary artery disease by [facility] 11/09/2022 I25.10 Heart failure with [...] and plan. Cynthia Blackburn MD Nephrology Pager: [phone] * Magdalena Puri, BICYCLE ASSEMBLER - 05/18/2023 10:51 AM EDT Images from the original note were not included. Former[facility] [place] [address] [address] STRUCTURAL HEART DISEASE CONSULTATION NOTE PRIMARY CARE [...] stenosis. She is now status post TAVR Cwfdw-ho-Fnrip with a 23 mm Lai 3 THV 05/12/[address] Sharma. Preliminary findings: Successful right transfemoral TAVR Liubw-kc-Gnajz with a 23 mm Lai 3 THV. [...] perforation. Interval Events: - 05/12 Transferred to [facility] post- TAVR for pressor/inotropic support (Levo, [...] ejection fraction Mild coronary artery disease by [facility] 11/09/2022 Heart failure with reduced [...] tablet 40 mg 40 mg Oral Daily MazomanieMara ernandez APRN 40 mg at 05/18/23 0826 Or pantoprazole (Protonix) injection 40 mg 40 mg Intravenous Daily MazomanieMara ernandez APRN 40 mg at 05/12/23 1004 senna-docusate (Pericolace) 8.6-50 mg per tablet 2 tablet 2 tablet Oral Daily MazomanieMara ernandez APRN 2 tablet at 05/16/232111 bisacodyL [...] stenosis. She is now status post TAVR Mjfup-vi-Esgzl with a 23 mm Lia 3 THV 05/12/[address] Sharma. Janet [...] Magdalena Puri APRN Structural Heart Team Pager [phone] Team Office Please see addendum by Dr. Sharma for final plan and recommendations Associated attestation - Antelmo Sharma MD - 05/19/2023 10:52 PM EDT I have reviewed Magdalena Puri APRN's above history and I agree with the details as written. The assessment and plan were formulated in discussion with me and I agree with them as documented. Antelmo Sharma MD Pager [phone] * Nico Palacios PA - 05/18/2023 8:13 [...] 0600 and on the weekends please page [phone]. * Loli Hernandez, PT - 05/17/2023 5:27 [...] returning home alone. Anticipated Discharge Disposition (PT): correction facility, swing bed rehabilitation facility Consult Recommendations: [...] plan as stated. Time IN / OUT: 3626-9980 Total Minutes, Physical Therapy: 54 Billing Code: te-sx2, te-f, gait LOLI HERNANDEZ, PT Pager: [phone] Physical Therapy Inpatient Rehabilitation Department * Cynthia [...] Well controlled. Cynthia Blackburn MD Nephrology Pager: [phone] * Mara Serrano, ANURAG - 05/17/2023 8:26 [...] 0600 and on the weekends please page [phone]. * Guerda Del Valle - 05/16/2023 10:44 AM EDT Nutrition Services Note - Low Nutrition Acuity Purnima M Kirstie is a 67 y.o. female Reason for intervention: hospital day 9 Nutrition Plan: Continue diet order Encourage good PO Josephine noted Added special serve: open containers Monitor weight Patient scheduled for a hospital day 9 nutrition evaluation. Projection Welding Machine Operator met with pt at bedside. Pt reports that her appetite and PO has much improved since admission. Denies nausea/vomiting or trouble chewing/swallowing. Projection Welding Machine Operator provided snack list but pt not interested in adding snacks at this time. Her only concern was that she is worried that she will eat too much which will cause too much pressure in her stomach. Projection Welding Machine Operator assured pt and suggested eating [...] Last Bowel Movement: 05/10/23 Guerda C Mor[place]k Brush Worker * Vinod Juárez PA - 05/16/2023 10:19 [...] 0600 and on the weekends please page [phone]. * Michael Jeffers MD - 05/16/2023 8:11 AM EDT Images from the original note were not included. Hypertension-Nephrology Inpatient Follow-up Purnima Thacker [id number] 1955 ID: 67 y.o. old female seen [...] IRONSAT 12 (L) 05/16/2023 SFOLATE >20.0 07/03/2022 [id number] 07/03/2022 Lab Results Component Value Date [...] Dr. Ayoub. Please contact me at phone: [phone] or pager: [phone] with any questions. Michael Jeffers MD Nephrology [...] -Nephrology consulted, labs and renal US ordered -Bokeelia removed, ambulated around the unit -bilateral pleural [...] attending surgeon on rounds this morning. James gAustin MD 05/15/2023 Between the hours of 1800 - 0600 and on the weekends please page [phone]. * Hortencia Cody MD - 05/15/2023 2:07 [...] not included. Hypertension-Nephrology Inpatient Follow-up Purnima Thacker [id number] 1955 ID: 67 y.o. old female seen [...] HGB 7.8 (L) 05/13/2023 SFOLATE >20.0 07/03/2022 [id number] 07/03/2022 Lab Results Component Value Date [...] Dr. Ayoub. Please contact me at phone: [phone] or pager: [phone] with any questions. Michael Jeffers MD Nephrology [...] last 720 hours. T/L/D Art ETT CVL [place] ASSESSMENT, MANAGEMENT, and DECISION MAKIN y.o. female [...] outlined inthis evaluation. HAVEN BA, PT Pager: [phone] Physical Therapy Inpatient Rehabilitation Department Time IN / OUT: 7276-6409 Total time: Total Minutes, Physical Therapy: 30 [...] 0600 and on the weekends please page [phone]. * Antelmo Sharma MD - 05/14/2023 7:56 AM EDT Images from the original note were not included. Formerly [facility] [place] [address] [address] STRUCTURAL HEART DISEASE CONSULTATION NOTE PRIMARY CARE [...] stenosis. She is now status post TAVR Jttvz-tt-Xieda with a 23 mm Lai 3 THV 05/12/[address] Sharma. Preliminary findings: Successful right transfemoral TAVR Jmfur-qr-Orctf with a 23 mm Lai 3 THV. [...] perforation. Interval Events: - 05/12 Transferred to [facility] post- TAVR for pressor/inotropic support (Levo, [...] ejection fraction Mild coronary artery disease by [facility] 11/09/2022 Heart failure with reduced [...] stenosis. She is now status post TAVR Fmzbj-ly-Mrkht with a 23 mm Lai 3 THV 05/12/[address] Sharma. Janet TAVR case notable for coronary LAD protective MINNA. Status post TAVR, the patient was transferred to CV for pressor and inotropic support. Pressors weaned overnight 05/12. Cardiac indices by thermodilution remained >3 with continued Milrinone 0.125 mcg/kg/min prior to PAC removal. EKG todayNSR with stable NV/QRS intervals. Hemoglobin slowly down-trending (8.2-> 7.8-> 7.2). [...] Brody Kaplan APRN Structural Heart Team Pager [phone] Team Office Please see addendum by Dr. [...] exposure. Nephrology consultationtoday. Antelmo Sharma MD Pager [phone] * Antelmo Cardenas RN - 05/14/2023 5:18 AM EDT Pt AOx4, complaining of mild/moderate generalized pain (states her Meloxicam is effective at home) currently refusing prn oxycodone. NAEON, hemodynamically stable on Milrinone, Maps >65, ST in rso953's down to NSR with frequent multifocal PVC's. [...] the original note were not included. Formerly [facility] [address] [place], [place] [address] STRUCTURAL HEART DISEASE PROGRESS NOTE PRIMARY CARE [...] stenosis. She is now status post TAVR Xgaxr-rc-Dacqk with a 23 mm Lai 3 THV 05/12/[address] Sharma. Preliminary findings: Successful right transfemoral TAVR Qyjbo-nw-Syegs with a 23 mm Lai 3 THV. [...] ejection fraction Mild coronary artery disease by [facility] 11/09/2022 Heart failure with reduced [...] stenosis. She is now status post TAVR Gtqdu-um-Bnsfu with a 23 mm Lai 3 THV 05/12/[address] Sharma. Janet TAVR case notable for coronary LAD protective MINNA. Status post TAVR, the patient was transferred to CV for pressor and inotropic support. Pressors weaned overnight. Cardiac indices by thermodilution remain greater than 3 with continued Milrinone 0.125 mcg/kg/min. EKG today NSR with stable NV/QRS intervals. Hemoglobin 7.8 today from 8.5, likely [...] Brody Kaplan APRN Structural Heart Team Pager [phone] Team Office Please see addendum by Dr. [...] DAPT moving forward. Antelmo Sharma MD Pager [phone] * Bonita Miguel PA - 05/13/2023 8:30 AM EDT Cardiac Surgery Progress Note Purnima Thacker is a 67 y.o. 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 PMH of s/p tissue AVR (2017), mixed connective tissue disease HTN, HLD, NICOLAS, diverticulosis, rosacea, essential tremor, and depression. 24h Events: From clinical laboratory manager for above procedure Extubated at [...] soft b/l, no evidence of hematoma. Tubes/Lines/Drains: Bokeelia, LUKAS, A-line, Art, ROSAURA Assessment/Plan: 67 y.o. [...] 0600 and on the weekends please page [phone]. * Onelia Schwartz MD - 05/12/2023 1:44 [...] ejection fraction Mild coronary artery disease by [facility] 11/09/2022 Heart failure with reduced [...] FiO2 weaned to 40%. 1105: ABG 7.34/42/73/22 1736-1094: SBT performed and passed on these settings [...] PCP: Magdalena Acosta MD PCP phone number: [phone] Date of Admission: 05/08/2023 ( Hospital Day [...] 1447 PHART -- 7.34* 7.34* -- -- [id number] -- 30* 30* -- -- PO2ART -- 72* 81* -- -- THE3DTN -- 16.0* 15.7* -- -- LACTATEVEN 2.4* 2.7* 2.7* 4.8* 2.9* VBG (Venous Blood Gas) Recent Labs 05/12/23 0705/12/2331705/12/2310505/11/23193905/11/23 144 LACTATEVEN 2.4* 2.7* 2.7* 4.8* 2.9* Mixed Venous Sat Recent Labs 05/12/23 0508 05/12/23 0321 05/12/23 0114 05/12/23 0030 [id number] 30.7 32.7 37.3 25.1 Objective: Vitals Last [...] questions please contact the health direct care provider that requested your imaging first. Cardiac for [...] questions please contact the health direct care provider that requested your imaging first. Electronically signed by: Cullen Narayanan MD, [facility] ([phone]), at 05/11/2023 4:[address] Angiogram Abdomen [...] questions please contact the health direct care provider that requested your imaging first. [...] questions please contact the health direct care provider that requested your imaging first. [...] questions please contact the health direct care provider that requested your imaging first. [...] and inotrope. She is planned for a dypio-yi-onewq TAVR this morning, which should hopefully improve [...] FACC Section of Cardiovascular Medicine [facility] Web Graphic Designercraniologist [facility] * Noreen Deutsch RN - [...] ejection fraction Mild coronary artery disease by [facility] 11/09/2022 Heart failure with reduced [...] 05/11/2023 4:11 PM EDT Reported off to DENTAL RESIDENT and pt transferred over in the bed for higher level of care. * Antelmo Sharma MD - 05/11/2023 9:45 AM EDT Images from the original note were not included. Formerly [facility] [place] [address] [address] STRUCTURAL HEART DISEASE CONSULTATION NOTE PRIMARY CARE [...] who had been referred for possible TAVR ionzh-ik-qfcea evaluation. Her primary symptoms are of dyspnea [...] otherwise negative. Ms. Thacker is originally from [facility]. 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 She states [...] ejection fraction Mild coronary artery disease by [facility] 11/09/2022 Heart failure with reduced [...] mL 0.5 mL Intramuscular Prior to discharge Klaudai Reid MD potassium chloride ER (Klor-Con M) [...] hour(s)) Lactate, whole blood, send to lab ([facility]) Result Value Ref Range Lactate WB 3.1 (H) 0.5 - 2.2 mmol/L Heparin (unfractionated) Level Result Value Ref Range Heparin UFH Level 0.46 IU/mL Lactate, whole blood, send to lab ([facility]) Result Value Ref Range Lactate [...] leads Confirmed by MD Harshil, Enrique Bell ([id number]) on 05/10/2023 8:11:46 AM Cardiac Cath 11/09/2022 [...] to decompensating HFrEF, she was transferred to [facility] this afternoon for further management. TAVR CT imaging support for adequate ileofemoral access. Given her acute deterioration today, will planfor RTF TAVR on 05/12/2023. Brody Kaplan APRN Structural Heart Disease Pager [phone] Please see addendum by Dr. Sharma for [...] signed and dated. Antelmo Sharma MD Pager [phone] * Harini Lance MD - 05/11/2023 6:06 AM EDT Images from the original note were not included. Cardiology Progress Note Patient info: Name: Purnima Thacker : 1955 PCP: Magdalena Acosta MD PCP phone number: [phone] Date of Admission: 05/08/2023 ( Hospital Day [...] questions please contact the health direct care provider that requested your imaging first. : 05/08 [...] 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) Mild coronary artery disease by [facility] 11/09/2022 Hyperlipidemia, unspecified NICOLAS (obstructive [...] PCP: Magdalena Acosta MD PCP phone number: [phone] Date of Admission: 05/08/2023 ( Hospital Day [...] 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) Mild coronary artery disease by [facility] 11/09/2022 Hyperlipidemia, unspecified NICOLAS (obstructive [...] PCP: Magdalena Acosta MD PCP phone number: [phone] Date of Admission: 05/08/2023 ( Hospital Day [...] Gas) No results found for: PHART, PO2ART, BTC5ATF, WMM2PHW Microbiology: Microbiology Results (Last 30 days) No [...] PPx: Diet: Daily Healthy Menu Choices/Cardiac diet ([facility]-Diet) Lines: Peripheral IV Line - Single Lumen [...] 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) Mild coronary artery disease by [facility] 11/09/2022 Hyperlipidemia, unspecified NICOLAS (obstructive [...] coronary artery disease by [facility] 11/09/2022 I25.10 Heart failure with reduced ejection fraction due to heart valve disease I50.20, I38 Cardiogenic shock R57.0 S/P TAVR (transcatheter aortic valve replacement) Z95.2 Past Medical History: Diagnosis Date Anemia Past Surgical History: Procedure Laterality Date PRG CATH [facility] LEFT HEART CATH & ARTS W/INJ & ANGIO IMG S&I N/A 11/09/2022 CORONARY ANGIOGRAPHY; W [facility],POSSIBLE PCI (WRVU 5.6) performed by Mario Alberto Escobedo MD at [facility] CATH LABS PRO AORTOPLAS FOR SUPRAVALV STEN N/A 09/21/2016 @AORTOPLASTY FOR SUPRAVALVULAR STENOSIS (WRVU 29.33) performed by Alirio Hudson MD at [facility] MAIN OR PRO REPLACEMENT PROSTHETIC AORTIC VALVE OPEN W CARDIOPULMONARY BYPASS HOMOGRF/STENT N/A 09/21/2016 @REPLACE AORTIC VALVE, OPEN, W\CPB, W\PROSTHETIC VALVE (WRVU 41.32) performed by Alirio Hudson MD at [facility] MAIN OR Social History and Habits: [...] coronary artery disease by [facility] 11/09/2022 I25.10 Heart failure with reduced ejection fraction due to heart valve disease I50.20, I38 Cardiogenic shock R57.0 S/P TAVR (transcatheter aortic valve replacement) Z95.2 Past Medical History: Diagnosis Date Anemia Past Surgical History: Procedure Laterality Date PRG CATH [facility] LEFT HEART CATH & ARTS W/INJ & ANGIO IMG S&I N/A 11/09/2022 CORONARY ANGIOGRAPHY; W [facility],POSSIBLE PCI (WRVU 5.6) performed by Mario Alberto Escobedo MD at [facility] CATH LABS PRO AORTOPLAS FOR SUPRAVALV STEN N/A 09/21/2016 @AORTOPLASTY FOR SUPRAVALVULAR STENOSIS (WRVU 29.33) performed by Alirio Hudson MD at [facility] MAIN OR PRO REPLACEMENT PROSTHETIC AORTIC VALVE OPEN W CARDIOPULMONARY BYPASS HOMOGRF/STENT N/A 09/21/2016 @REPLACE AORTIC VALVE, OPEN, W\CPB, W\PROSTHETIC VALVE (WRVU 41.32) performed by Alirio Hudson MD at [facility] MAIN OR Social History and Habits: [...] days, which prompted her to present to [employer]. She also endorses some intermittent retrosternal chest pain with exertion.She endorses some dizziness with exertion, but has not gotten faint or passed out. At [facility] she was noted to be afebrile, blood pressure 105/64, HR 120s, satting 95% on 2L NC. Labs from [facility] are below, of note she had [...] 89/59, which prompted the transfer to us. [facility] labs: CBC - Hgb 10.5 CMP - Cr 1.1 BNP 00969 HsTrop 1358 Lactate 1.6 D-dimer 1183 Interval History Patient was admitted to [facility] due to concern on low BP [...] influenza vaccine (65 yrs +) Assessment: Purnima Tahcker is a 67 y.o. female with s/p [...] Klaudia Reid MD Internal Medicine PGY-1 Pager [phone], M1-S1 Service Associated attestation - Juan Luis Gonzalez MD - 05/08/2023 10:00 PM EDT Cardiology Attending Addendum Active Hospital Problems Diagnosis Symptomatic severe aortic stenosis with low ejection fraction Heart failure with reduced ejection fraction due to heart valve disease Mild coronary artery disease by [facility] 11/09/2022 Hyperlipidemia, unspecified History of [...] PCP: Magdalena Acosta MD PCP phone number: [phone] Date of Admission: 05/08/2023 ( Hospital Day 0 days ) Attending:Enrique Chua MD ID: Purnima Thacker is a 67 y.o. female w/ PMH of s/p bioprosthetic AVR in 2016 with recent concern for severe restenosis, HTN, HLD, mixed connective tissue disease, who presents in transfer from [facility] with worsening BONILLA and weight gain [...] four days, which promptedher to present to [employer]. She also endorses some intermittent retrosternal chest pain with exertion. She endorses some dizziness with exertion, but has not gotten faint or passed out. At [facility] she was noted to be afebrile, blood pressure 105/64, HR 120s, satting 95% on 2L NC. Labs from [facility] are below, of note she had [...] 89/59, which prompted the transfer to us. [facility] labs: CBC - Hgb 10.5 CMP - Cr 1.1 BNP 01477 HsTrop 1358 Lactate 1.6 D-dimer 1183 Vasoactive [...] tissue disease, who [facility] BONILLA and weight gain concerning [...] #Routine Diet: Daily Healthy Menu Choices/Cardiac diet ([facility]-Diet) DVT Prophylaxis: heparin gtt GI Prophylaxis: none Code Status: Attempt Cardiopulmonary Resuscitation - Inpatient Dispo: Pending clinical course Lincoln Sal MD Internal Medicine, PGY-1 Cardiology [facility] #[id number] 05/08/23 12:06 PM Cardiology Staff Addendum Purniam Thacker is a 67 y.o. female whom [...] to the planned procedure. Hand Hygiene: The construction trades contractor did perform hand hygiene prior to arterial [...] Successful arterial line placement. Crispin Timmons MD Campus Director Associated attestation - Onelia Schwartz MD - [...] (flow was non-pulsatile) and appearance of blood. Bokeelia-Marily catheter was placed and locked at 55 [...] discharge to home with family/friend support and [facility], pt will also have FWW delivered to her prior to her d/c. Needs for Transition of Care: Plan for discharge is: Home w/ Services Outpatient Agency/Support Group Needs: Homecare agency Home Health Services: Physical Therapy, Occupational Therapy Agency Referrals & Follow-up Care: Contact information for follow-up Home Health & Hospice, [facility] [address] [place] [address] Cardiac Rehab, [facility] [address] [place] [address] Home Health & Hospice, [facility] [address] [place] [address] Transportation: family or friend will provide *Brother [...] Type: *No Product type* / Secondary Insurance: [employer] [facility] Prescription Coverage: Yes This plan was formulated with input from patient, family (please identify family/friend involved ifapplicable) and team. All are in agreement with plan. Aliza Martino MSN-Ed, RN ACM radiation physicist Office of Care Management Pager #[phone] * Plan of Care - Favian Mckeon [...] Type: *No Product type* / Secondary Insurance: [facility] [place] Last Physical Therapy Recommendation: (Home with assist from Brother; Friend arriving Tues) with walker, front wheeled Last Occupational Therapy Recommendation: swing bed rehabilitation facility, correction facility (vs home with support for IADLs) with walker, front wheeled, shower chair Plan for discharge is: Home w/ Services Outpatient Agency/Support Group Needs: Homecare agency Home Health Services: Physical Therapy, Occupational Therapy Agency Referrals: I have met with the patient to: discuss discharge planning needs. describing our affiliations within the [facility] and educate about their right to choose where referrals are sent. provide a list of Home Health Agencies / Durable Medical Equipment vendors which serve their preferred geographic area. They have requested referrals to: [facility] [address] [place] [id number] [facility] Located @ [facility] [place], [place] Note routed to a Signs Sales Representative who will communicate referrals to facilities and provide any required information. Transportation: family or friend will provide *Brother Raymond on Tuesday 05/22 at 1000 Barriers to discharge: Does not have home 22/02 assist available until tomorrow Tuesday 05/22 Plan going forward: Discharge home into the 22/02 home care of brother Raymond with [facility] FWW and [facility] PT/OT services on Tuesday 05/22 at [...] Attending: All Staff: Staff Role Juanita Almaguer Conveyor Mechanic Laure Ricks PA Physician Search Consultant Magdalena Rodriguez RN Radiology Nurse Consuelo Espinoza [...] Type: *No Product type* / Secondary Insurance: [facility] [place] Last Physical Therapy Recommendation: correction facility, swing bed rehabilitation facility with to be determined Last Occupational Therapy Recommendation: with Plan for discharge is: Custodial Facility / Swing Outpatient Agency/Support Group Needs: None Agency Referrals: Based on discussions with the multi-disciplinary healthcare team, the patient would benefit from SNF / Swing level of care at discharge. I have met with the patient to: discuss discharge planning needs. provide the [facility], Office of Care Management letter from the Director Index pertaining to rehab referrals. provide a letter describing our affiliations within the [facility] and educate about their right to choose where referrals are sent. provide the CMS Star Quality Rating handout. review the different levels of rehab including SNF, swing, and acute. provide a list of facilities within their preferred geographic area. request that they provide at least three choices for referral. They have requested referrals to: [facility] [address] [place] [address] [facility] [address] [place] [address] (Accepts pts only after exhausting all other local SNF options) [facility] (Swing) ([facility]) [address] [place] [address] PHONE: [phone] FAX: [phone] [facility] (S[facility]) ([facility]) [address] [place] [address] PHONE: [phone] FAX: [phone] Note routed to a Signs Sales Representative who will communicate referrals to facilities and [...] Crenshaw RN - 05/17/2023 10:25 AM EDT [facility] CARDIAC REHABILITATION Purnimakary Thacker was seen today regarding participation in the outpatient Phase 2 Cardiac Rehabilitation at [facility]. The patient agrees to [...] from the original note were not included. [facility] NEPHROLOGY/HYPERTENSION CONSULT NOTE PATIENT: Purnima [...] in her course. She ultimately underwent a xmuld-wf-akfpt procedure on and tolerated it well (see [...] 1423 05/12/23 1105 PHART 7.39 7.37 7.34* KQE8WTF 33* 36 42 PO2ART 101 102 73* ZCA4BQG 19.5* 20.4 22.1 LACTATEVEN 1.5 1.8 2.8* PGT7AMO 40 40 40 PFRATIOART2 252 255 182 VBG (Venous Blood Gas) Recent Labs 05/12/23 1557 05/12/23 1423 05/12/23 1105 LACTATEVEN 1.5 1.8 2.8* Mixed Venous Sat Recent Labs 05/12/23 1425 05/12/23 0508 05/12/23 0321 G5KNQB8 59.9 30.7 32.7 LFT's: Recent Labs 05/14/23 0110 05/13/23 0115 05/12/23 0600 BILITOT 0.4 0.5 0.9 BILIDIR -- 0.3 -- ALBUMIN 3.6 3.0* 3.5 ALKPHOS 86 85 100 ALT 437* 903* 1,174* AST 319* 792* 1,435* No results found for: UPROTCREAT No results found for: TPROTEINPEP, ALBELECT No results found for: MICROALBUR, NRXJ99CUT No results found for: HA1C Lab Results Component Value Date CALCIUM 8.5 05/14/2023 PHOS 4.7 (H) 05/08/2023 No results found for: 25OHVITD MICROBIOLOGY: ProcedureComponentValueUnitsDate/TimeUrine culture [[id number]]Collected: 05/11/23 1922Lab Status: Final resultSpecimen: Clean Catch [...] consulted for assessment if this patient needs DELINQUENCY PREVENTION SOCIAL WORKER. Atthis time, we can likely hold off on DELINQUENCY PREVENTION SOCIAL WORKER. Her volume status appears sufficient and her metabolic kanwal angements with mild acidosis is not too profound. Patient does not have significant uremic symptoms. We can hold off for today, but the patient is a high risk candidate for needing DELINQUENCY PREVENTION SOCIAL WORKER in future daysespecially if her Cr curve trends the direction it is for the next several days. S/p Xiipj-wh-Mjgjn TF TAVR: Management per cardiology. On milrinone gtt. PLAN: - Please obtain following diagnostics: renal US, urinalysis, urine prot/Cr ratio, urine albumin/Cr ratio, CK, uric acid, serum osmol, daily VBGs - No acute indications for DELINQUENCY PREVENTION SOCIAL WORKER/dialysis. We will keep close eye on Cr trend, volume status, and metabolics to ensure patient still does not need DELINQUENCY PREVENTION SOCIAL WORKER as she ensues intrinsic renal recovery - [...] M.HDavid., M.A. PGY-V Nephrology-Hypertension Fellow Page # [phone] [facility] [address] 2nd floor, Job Order Clerk [address] [place] [address] * Care Management - Mario Alberto Olmos [...] Type: *No Product type* / Secondary Insurance: [facility] Plan for discharge is: Home [...] [facility] at 0945. Was intubated in the clinical laboratory manager due to agitation. Maintained bedrest [...] Operative Note Patient Name: Purnima Thacker : [id number] MR#: [id number] Case Date: 05/12/2023 Surgeon: Surgeon(s) and Role: [...] procedure Note: Patient Name: Purnima Thacker : [id number] MR#: [id number] Case Date: 05/12/2023 Operators Surgeon: Surgeon(s) and [...] main with 4.0 x 30 mm Resolute [place] Drug Eluting Stent Perclose x1 + Angio-seal 8 Fr x1, RFA Manual pressure, LFA Manual pressure, LFV Endotracheal intubation (performed by cardiac anesthesia) Preliminary findings: Successful right transfemoral TAVR Tohyu-sx-Fhtyp with a 23 mm Lai 3 THV. [...] MD, M.Sc. Structural Heart Disease Fellow Pager :[phone] Antelmo Sharma MD Pager [phone] * Op Note - Alirio Hudson MD - 05/12/2023 7:37 AM EDT Preop Diagnosis: Severe aortic stenosis, symptomatic. Postop Diagnosis: Same. Procedure: Transfemoral TAVR procedure with 23mm valve. Surgeon: Alirio Hudson M.D. Tying Machine Operator Lumber: Danny CULP Procedure: The patient was taken to the clinical laboratory manager. 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 [facility] [id number] STRUCTURAL HEART DISEASE CONSULTATION NOTE PRIMARY CARE [...] who had been referred for possible TAVR jubqo-vb-nzhxn evaluation. Her primary symptoms are of dyspnea [...] otherwise negative. Ms. Thacker is originally from [facility]. 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 PROBLEM LIST: Patient Active Problem List Diagnosis Symptomatic severe aortic stenosis with low ejection fraction Mild coronary artery disease by [facility] 11/09/2022 Heart failure with reduced [...] hour(s)) Lactate, whole blood, send to lab ([facility]) Result Value Ref Range Lactate [...] leads Confirmed by MD Harshil, Enrique Bell ([id number]) on 05/10/2023 8:11:46 AM Assessment and Plan: [...] Antelmo Sharma MD Structural Heart Disease Pager [phone] * Plan of Care - ArletSarahi arnold RN - 05/10/2023 3:55 AM Brionna LYLE Note and Care Plan Sarahi Nice RN assumed care of pt at time of their arrival to room 362 from [facility]. Pt voices shortness of breath at [...] listening utilized Taken 05/08/20231999 by Alivia Kauffman brain picker/Support System Care: self-care encouraged support provided Problem: [...] Manage Obstructive Sleep Apnea Flowsheets (Taken 05/09/2023 5220) NPPV/CPAP Maintenance: home PAP equipment/settings used * Initial Assessments - Alie Bradshaw RN - 05/09/2023 3:42 PM EDT Office of Care Management Initial Assessment Alie Bradshaw RN reviewed record and discussed patient with Care Team. Source of Information: Team, bedside nurse, medical record, and Patient Introduced self/reviewed role; services accepted. Admitted From: Transfer from another hospital Location: admitted from [facility] Reason for Hospitalization: Critical aortic stenosis, [...] 180 days) Any patient receiving care in [place] must abide by [place] law. The hierarchy [...] (i) The agent with financial power of collections attorney or a conservator appointed in accordance [...] DME: none Home Address confirmed as: [address] [address] Social & Family Supports: All names listed [...] Type: *No Product type* / Secondary Insurance: [employer] [facility] [place] ONLY if patient has Medicare A&B - Does this patient have secondary insurance?: Yes ; Prescription Coverage: Yes Preferred Pharmacy: updated to [facility] Status: Patient is a : No Primary Care Provider confirmed: Magdalena Acosta MD [phone] Patient/Caregiver Goals of Treatment: Potential Needs for [...] transition of care planning. Alie Bradshaw RN, Pager-[phone] * Plan of Care - Emily Lucero RN - 05/08/2023 2:54 PM EDT OUTCOME EVALUATION NOTE: OUTCOME SUMMARY: Pt arrived from [facility]. A&O, no c/o pain or SOB. [...] 4:15 PM EDT Office Visit Dermatology at [place] [address] [place] [phone] Marek Bonilla MD [address], [place] [address] Scheduled Referrals Name Type Priority Associated Diagnoses [...] 4:20 AM EDT DIFFERENTIAL, AUTOMATED Routine 05/16/20 23 4:20 AM EDT IRON AND TIBC Routine [...] ARTERIAL POC Routine 2:23 PM EDT TROPONIN - SERIES STAT 05/12/2023 2:0 5 PM EDT HEMOGLOBIN Routine 05/12/2023 2:05 PM [...] Heart Cath W/Inj L Ventriculography, Img S&I (33860) 05/12/2023 7:37 AM EDT Aortic valve stenosis, [...] 05/12/2023 1:05 AM EDT DIFFERENTIAL, AUTOMATED Routine 10/11/20 23 1:05 AM EDT CBC (WITH DIFF) Routine [...] Pathologist [facility] EF 20 HEARTuromovie SYSTEM Anatomical Region Laterality Modality Cardiac Other 07/08/2023 10:3 1 AM EST Narrative 07/08/2023 12:26 PM EST [address] [place] [address] ? Echocardiogram Report Name: PURNIMA THACKER ?Study Date: 07/08/2023 10:31 AMBP: 118/60 mmHg ? Patient Location: : 1955 ? Height: 155 cm ? Account: [id number] Age: 67 yrs ? Weight: 74 kg Gender: Female ?BSA: 1.7 m2 Ordering Physician: ALIRIO HUDSON Referring Physician: VINOD JUÁREZ Performed By: Felicia Norris RDCS Reason For Study: S/P TAVR Exam Location: [facility]. Interpretation Summary Left ventricular systolic function is [...] no significant change (post-procedure). Procedure Limited - 37383. Doppler - 45780. Color Doppler - 27736. Satisfactory quality. This study is limited because [...] Note Lee Kincaid MD - 07/08/2023 [address] [place] [address] Echocardiogram Report Name: LASHELL THACKEROUISE Magalie Study Date: 310:31 AMBP: 118/60 mmHg Patient Location: : 1955 Height: 155 cm Account: [id number] Age: 67 yrs Weight: 74 kg Gender: Female BSA: 1.7 m2 Ordering Physician: ALIRIO HUDSON Referring Physician: VINOD JUÁREZ Performed By: Felicia Norris RDCS Reason For Study: S/P TAVR Exam Location: [facility]. Interpretation Summary Left ventricular systolic function is [...] is nosignificant change (post-procedure). Procedure Limited - 06122. Doppler - 80837. Color Doppler - 65595. Satisfactoryquality. This study is limited because of [...] EST) Glucose 93 65 - 199 mg/dL [facility] Comment:Diabetes: >=200 mg/d L plus symptoms Blood Urea Nitrogen 19(H) 8 - 18 mg/dL [facility] Creatinine 0.81 0.70 - 1.20 mg/dL [facility] Sodium 142 135 - 145 mmol/L [facility] Potassium 3.8 3.5 - 5.0 mmol/L [facility] Comment: Please note: ??Patients with WBC >100,000 may have falsely elevated Potassium levels. ??For accurate Potassium quantification in these patients send serum separator tube (gold top) for subsequent determinations. ??Contact the Clinical Chemistry Laboratory if there are any questions. Chloride 104 98 - 107 mmol/L [facility] Carbon Dioxide 26 22 - 31 mmol/L [facility] Anion Gap 12 5 - 15 mmol/L [facility] Calcium 10.2 8.5 - 10.5 mg/dL [facility] Protein, Total 7.4 6.1 - 8.0 g/dL [facility] Albumin 4.1 3.2 - 5.2 g/dL [facility] Aspartate Aminotransferase 24 0 - 30 unit/L [facility] Alanine Aminotransferase 12 0 - 30 unit/L [facility] Alkaline Phosphatase 93 35 - 105 unit/L [facility] Bilirubin, Total 0.3 0.2 - 1.3 mg/dL [facility] Est Glomerular Filtration Rate 80 >=60 mL/min/1. 73 m?? [facility] Comment: This patient's estimated GFR [...] Lab Alirio Hudson MD CHEMISTRY ORDERABLE S [facility] [place] [address] * (ABNORMAL) Basic Metabolic Panel (non-fasting) (05/22/2023 3:57 AM EDT) Glucose 88 65 - 199 mg/dL [facility] Comment:Diabetes: >=200 mg/d L plus symptoms Blood Urea Nitrogen 21(H) 8 - 18 mg/dL [facility] Creatinine 0.69(L) 0.70 - 1.20 mg/dL [facility] Sodium 136 135 - 145 mmol/L [facility] Potassium 3.6 3.5 - 5.0 mmol/L [facility] Comment: Please note: ??Patients with WBC >100,000 may have falsely elevated Potassium levels. ??For accurate Potassium quantification in these patients send serum separator tube (gold top) for subsequent determinations. ??Contact the Clinical Chemistry Laboratory if there are any questions. Chloride 102 98 - 107 mmol/L [facility] Carbon Dioxide 23 22 - 31 mmol/L [facility] Anion Gap 11 5 - 15 mmol/L [facility] Calcium 8.6 8.5 - 10.5 mg/dL [facility] Est Glomerular Filtration Rate 95 >=60 mL/min/1. 73 m?? [facility] Comment: This patient's estimated GFR [...] Agency Comment Spec In Lab Mara Serrano BICYCLE ASSEMBLER CHEMISTRY ORDERABL ES [facility] [place] [address] * (ABNORMAL) Basic Metabolic Panel (non-fasting) (05/21/2023 5:06 AM EDT) Glucose 87 65 - 199 mg/dL [facility] Comment:Diabetes: >=200 mg/d L plus symptoms Blood Urea Nitrogen 25(H) 8 - 18 mg/dL [facility] Creatinine 0.84 0.70 - 1.20 mg/dL [facility] Sodium 136 135 - 145 mmol/L [facility] Potassium 3.6 3.5 - 5.0 mmol/L [facility] Comment: Please note: ??Patients with WBC >100,000 may have falsely elevated Potassium levels. ??For accurate Potassium quantification in these patients send serum separator tube (gold top) for subsequent determinations. ??Contact the Clinical Chemistry Laboratory if there are any questions. Chloride 102 98 - 107 mmol/L [facility] Carbon Dioxide 26 22 - 31 mmol/L [facility] Anion Gap 8 5 - 15 mmol/L [facility] Calcium 8.9 8.5 - 10.5 mg/dL [facility] Est Glomerular Filtration Rate 76 >=60 mL/min/1. 73 m?? [facility] Comment: This patient's estimated GFR [...] Agency Comment Spec In Lab Mara Thomasfield BICYCLE ASSEMBLER CHEMISTRY ORDERABL ES Performing Organization Address [facility] Co de Phone Number [facility] [place] [address] * Lavender Tube HOLD (05/20/2023 2:52 AM EDT) Lavender Hold Sample in lab. [facility] Blood Venous Draw / Unknown 05/20/2023 2:52 AM EDT 05/20/2023 3:04 AM EDT Mara Thomasfield BICYCLE ASSEMBLER HEMATOLOGY ORDERAB LES Performing Organization Address [facility] Co de Phone Number [facility] [place] [address] * (ABNORMAL) Basic Metabolic Panel (non-fasting) (05/20/2023 2:52 AM EDT) Glucose 152 65 - 199 mg/dL [facility] Comment:Diabetes: >=200 mg/d L plus symptoms Blood Urea Nitrogen 33(H) 8 - 18 mg/dL [facility] Creatinine 0.82 0.70 - 1.20 mg/dL [facility] Sodium 137 135 - 145 mmol/L [facility] Potassium 3.7 3.5 - 5.0 mmol/L [facility] Comment: Please note: ??Patients with WBC >100,000 may have falsely elevated Potassium levels. ??For accurate Potassium quantification in these patients send serum separator tube (gold top) for subsequent determinations. ??Contact the Clinical Chemistry Laboratory if there are any questions. Chloride 99 98 - 107 mmol/L [facility] Carbon Dioxide 22 22 - 31 mmol/L [facility] Anion Gap 16(H) 5 - 15 mmol/L [facility] Calcium 9.0 8.5 - 10.5 mg/dL [facility] Est Glomerular Filtration Rate 78 >=60 mL/min/1. 73 m?? [facility] Comment: This patient's estimated [...] Agency Comment Spec In Lab Mara Thomasfield BICYCLE ASSEMBLER CHEMISTRY ORDERABL ES Performing Organization Address [facility] Co de Phone Number [facility] [place] [address] * (ABNORMAL) Potassium (05/20/2023 2:52 AM EDT) [facility] Potassium 3.4(L) 3.5 - 5.0 mmol/L [facility] Comment: Please note: ??Patients with WBC >100,000 may have falsely elevated Potassium levels. ??For accurate Potassium quantification in these patients send serum separator tube (gold top) for subsequent determinations. ??Contact the Clinical Chemistry Laboratory if there are any questions. Blood 05/20/2023 2:52 AM EDT 05/20/2023 3:03 AM EDT Narrative Resulting Agency Comment Spec In Lab Mara Thomasfield BICYCLE ASSEMBLER CHEMISTRY ORDERABL ES Performing Organization Address [facility] Co de Phone Number [facility] [place] [address] * XR Chest PA & Lateral (Generic) [...] questions please contact the health direct care provider that requested your imaging first. ? Electronically signed by: Chyna Johnson MD, [facility] ??([phone]), at 05/19/2023 2:19 PM Narrative 05/19/2023 2:19 [...] have questions please contactthe health direct care provider that requested your imaging first. Alirio Hudson MD IMG DX ORDERABLES * (ABNORMAL) Basic Metabolic Panel (non-fasting) (05/19/2023 5:49 AM EDT) Glucose 93 65 - 199 mg/dL [facility] Comment:Diabetes: >=200 mg/d L plus symptoms Blood Urea Nitrogen 45(H) 8 - 18 mg/dL [facility] Creatinine 1.02 0.70 - 1.20 mg/dL [facility] Sodium 138 135 - 145 mmol/L [facility] Potassium 3.9 3.5 - 5.0 mmol/L [facility] Comment: Please note: ??Patients with WBC >100,000 may have falsely elevated Potassium levels. ??For accurate Potassium quantification in these patients send serum separator tube (gold top) for subsequent determinations. ??Contact the Clinical Chemistry Laboratory if there are any questions. Chloride 102 98 - 107 mmol/L [facility] Carbon Dioxide 26 22 - 31 mmol/L [facility] Anion Gap 10 5 - 15 mmol/L [facility] Calcium 9.7 8.5 - 10.5 mg/dL [facility] Est Glomerular Filtration Rate 60 >=60 mL/min/1. 73 m?? [facility] Comment: This patient's estimated [...] Agency Comment Spec In Lab Mara Serrano BICYCLE ASSEMBLER CHEMISTRY ORDERABL ES [facility] [place] [address] * IR Chest Tube Placement Right (05/18/2023 [...] Kristopher Salgado MD 05/18/2023 Alirio Hudson MD [place] IR ORDERABLES * (ABNORMAL) Basic Metabolic Panel (non-fasting) (05/18/2023 2:54 AM EDT) Glucose 95 65 - 199 mg/dL [facility] Comment:Diabetes: >=200 mg/d L plus symptoms Blood Urea Nitrogen 71(H) 8 - 18 mg/dL [facility] Comment:result rechecked-[facility] Creatinine 1.64(H) 0.70 - 1.20 mg/dL [facility] Comment:result rechecked-[facility] Sodium 137 135 - 145 mmol/L [facility] Potassium 3.7 3.5 - 5.0 mmol/L [facility] Comment: Please note: ??Patients with WBC >100,000 may have falsely elevated Potassium levels. ??For accurate Potassium quantification in these patients send serum separator tube (gold top) for subsequent determinations. ??Contact the Clinical Chemistry Laboratory if there are any questions. Chloride 100 98 - 107 mmol/L [facility] Carbon Dioxide 24 22 - 31 mmol/L [facility] Anion Gap 13 5 - 15 mmol/L [facility] Calcium 9.7 8.5 - 10.5 mg/dL [facility] Est Glomerular Filtration Rate 34(L) >=60 mL/min/1. 73 m?? [facility] Comment: This patient's estimated GFR [...] Agency Comment Spec In Lab Mara Serrano BICYCLE ASSEMBLER CHEMISTRY ORDERABL ES [facility] [place] [address] * XR Chest PA & Lateral (Generic) [...] questions please contact the health direct care provider that requested your imaging first. [...] have questions please contactthe health direct care provider that requested your imaging first. Alirio Hudson MD IMG DX ORDERABLES * (ABNORMAL) Comprehensive metabolic panel (non-fasting) (05/17/2023 4:35 AM EDT) Glucose 89 65 - 199 mg/dL [facility] Comment:Diabetes: >=200 mg/d L plus symptoms Blood Urea Nitrogen 97(H) 8 - 18 mg/dL [facility] Creatinine 2.97(H) 0.70 - 1.20 mg/dL [facility] Comment:result rechecked-[facility] Sodium 135 135 - 145 mmol/L [facility] Potassium 4.1 3.5 - 5.0 mmol/L [facility] Comment: Please note: ??Patients with WBC >100,000 may have falsely elevated Potassium levels. ??For accurate Potassium quantification in these patients send serum separator tube (gold top) for subsequent determinations. ??Contact the Clinical Chemistry Laboratory if there are any questions. Chloride 97(L) 98 - 107 mmol/L [facility] Carbon Dioxide 22 22 - 31 mmol/L [facility] Anion Gap 16(H) 5 - 15 mmol/L [facility] Calcium 9.6 8.5 - 10.5 mg/dL [facility] Protein, Total 6.5 6.1 - 8.0 g/dL [facility] Albumin 3.7 3.2 - 5.2 g/dL [facility] Aspartate Aminotransferase 58(H) 0 - 30 unit/L [facility] Alanine Aminotransferase 66(H) 0 - 30 unit/L [facility] Alkaline Phosphatase 86 35 - 105 unit/L [facility] Bilirubin, Total 0.6 0.2 - 1.3 mg/dL [facility] Est Glomerular Filtration Rate 17(L) >=60 mL/min/1. 73 m?? [facility] Comment: This patient's estimated GFR [...] Lab Alirio Hudson MD CHEMISTRY ORDERABLE S [facility] [place] [address] * Potassium (05/16/2023 11:15 PM EDT) Potassium 3.7 3.5 - 5.0 mmol/L [facility] Comment: Please note: ??Patients with [...] MD CHEMISTRY ORDERABLE S Performing Organization Address [facility] Co de Phone Number [facility] [place] [address] * Magnesium (05/16/2023 5:22 PM EDT) Magnesium 0.96 0.69 - 1.07 mmol/L [facility] Blood 05/16/2023 5:22 PM EDT 05/16/2023 5:27 PM EDT Narrative Resulting Agency Comment Spec In Lab Alirio Hudson MD CHEMISTRY ORDERABLE S Performing Organization Address [facility] de Phone Number [facility] [place] [address] * (ABNORMAL) Basic Metabolic Panel (non-fasting) (05/16/2023 5:22 PM EDT) Glucose 106 65 - 199 mg/dL [facility] Comment:Diabetes: >=200 mg/d L plus symptoms Blood Urea Nitrogen 103(H) 8 - 18 mg/dL [facility] Creatinine 3.91(H) 0.70 - 1.20 mg/dL [facility] Comment:result rechecked-imm Sodium 132(L) 135 - 145 mmol/L [facility] Potassium 3.6 3.5 - 5.0 mmol/L [facility] Comment: Please note: ??Patients with WBC >100,000 may have falsely elevated Potassium levels. ??For accurate Potassium quantification in these patients send serum separator tube (gold top) for subsequent determinations. ??Contact the Clinical Chemistry Laboratory if there are any questions. Chloride 92(L) 98 - 107 mmol/L [facility] Carbon Dioxide 22 22 - 31 mmol/L [facility] Anion Gap 18(H) 5 - 15 mmol/L [facility] Calcium 9.7 8.5 - 10.5 mg/dL [facility] Est Glomerular Filtration Rate 12(L) >=60 mL/min/1. 73 m?? [facility] Comment: This patient's estimated GFR [...] MD CHEMISTRY ORDERABLE S Performing Organization Address [facility] Co de Phone Number [facility] [place] [address] * (ABNORMAL) Potassium (05/16/2023 11:43 AM EDT) Potassium 3.3(L) 3.5 - 5.0 mmol/L [facility] Comment: Please note: ??Patients with [...] MD CHEMISTRY ORDERABLE S Performing Organization Address City/[facility] Co de Phone Number [facility] [place] [address] * (ABNORMAL) Ferritin (05/16/2023 4:41 AM EDT) Ferritin 1,813(H) 30 - 400 ng/mL [facility] Comment: Pediatric reference ranges not verified at [facility], interpret with caution. Reference ranges for females greater than 50 years of age approach values for men, i.e., 30-400 ng/mL. Blood 05/16/2023 4:41 AM EDT 05/16/2023 4:54 AM EDT Narrative Resulting Agency Comment Spec In Lab Kristopher Ayoub MD CHEMISTRY ORDERABLES Performing Organization Address City/[facility]/ZIP Co de Phone Number [facility] [place] [address] * (ABNORMAL) PTH (05/16/2023 4:41 AM EDT) Parathyroid Hormone 120(H) 15 - 65 pg/mL [facility] Blood 05/16/2023 4:41 AM EDT 05/16/2023 4:54 AM EDT Narrative Resulting Agency Comment Spec In Lab Kristopher Ayoub MD CHEMISTRY ORDERABLES Performing Organization Address City/[facility] Co de Phone Number [facility] [place] [address] * Vitamin D, 25-Hydroxy (05/16/2023 4:41 AM EDT) Vitamin D Total 25 OH 33 21 - 100 ng/mL [facility] Vit D Interp Sufficient [facility] Blood 05/16/2023 4:41 AM EDT 05/16/2023 4:54 AM EDT Narrative Resulting Agency Comment Spec In Lab Kristopher Ayoub MD CHEMISTRY ORDERABLES Performing Organization Address City/[facility] Co de Phone Number [facility] [place] [address] * (ABNORMAL) Blood Gas Venous ([facility]) (05/16/2023 4:22 AM EDT) pH, Venous 7.41 7.32 - 7.42 [facility] PCO2, Venous 32(L) 41 - 51 mmHg [facility] PO2, Venous 73(H) 25 - 40 mmHg [facility] Bicarbonate, Venous 19.6 mmol/L [facility] Base Excess, Venous -5.1 mmol/L [facility] Hgb Blood Gas 9.7(L) 11.7 - 15.5 g/dL [facility] Oxyhemoglobin, Venous 92.8 % [facility] Carboxyhemoglob in, Venous 0.1 % [facility] Comment: Nonsmokers: 0.5-1.5% COHB Smokers: Variable, but usually less than 10% Toxic: 20-30% COHB Lethal: Greater than 60% COHB Methemoglobin, Venous 0.3 <=1.5 % [facility] Na Whole Blood 130(L) 135 - 145 mmol/L [facility] K Whole Blood 3.7 3.5 - 5.0 mmol/L [facility] Comment: Please note: Patients with WBC >100,000 may have falsely elevated Potassium levels. Contact the Clinical Chemistry Laboratory if there are any questions. ICa Whole Blood 1.15 1.15 - 1.33 mmol/L [facility] Comment: Note: ??Total bilirubin higher than 20 mg/dL may lead to falsely low ionized calcium. CL Whole Blood 95(L) 98 - 107 mmol/L [facility] Gluc Whole Bld 82 65 - 199 mg/dL [facility] Comment:Diabetes: >=200 mg/d L plus symptoms Lactate WB 1.1 0.5 - 2.2 mmol/L [facility] Blood Gas Source Venous [facility] Blood Venous Draw / Unknown 05/16/2023 4:22 AM EDT 05/16/2023 4:31 AM EDT Narrative Resulting Agency Comment Spec In Lab Bonita TOBAR CHEMISTRY ORDERABLES [facility] [place] [address] * (ABNORMAL) Differential, Automated (05/16/2023 4:20 AM EDT) Neutrophil % 84.1 % [facility] Neutrophil Absolute 6.22(H) 1.70 - 6.10 x10(3)/mc L [facility] Lymph % 5.8 % [facility] Lymphocytes Abs 0.4(L) 0.9 - 3.2 x10(3)/mc L [facility] Monocyte % 8.8 % [facility] Monocyte Abs 0.6 0.3 - 0.9 x10(3)/mc L [facility] Eos % 0.4 % [facility] Eosinophils Abs 0.0 0.0 - 0.4 x10(3)/mc L [facility] Basophil % 0.0 % [facility] Baso Absolute 0.0 0.0 - 0.1 x10(3)/mc L [facility] Immature Gran % 0.90 % [facility] Comment: Immature granulocytes(IG's)percentage and absolute count will include metamyelocytes, myelocytes, and promyelocytes. Blood smears from CBCs yielding IG's will be scanned manually for concordance. If this scan disagrees with the automated IG or if promyelocytes are noted, a manual differential will be performed. Immature Gran Absolute 0.07(H) 0.00 - 0.04 x10(3)/ L [facility] Blood 05/16/2023 4:20 AM EDT 05/16/2023 4:29 AM EDT Narrative Resulting Agency Comment Spec In Lab James Agustin MD HEMATOLOGY ORDER JODIE [facility] [place] [address] * (ABNORMAL) Hemogram (05/16/2023 4:20 AM EDT) White Blood Cell 7.4 4.0 - 9.5 x10(3)/mc L [facility] Red Blood Cell 2.40(L) 4.00 - 5.21 x10(6)/mc L [facility] Hemoglobin 7.8(L) 11.7 - 15.5 g/dL [facility] Hematocrit 22.5(L) 35.7 - 45.8 % [facility] Mean Cell Volume 93.8 82.6 - 94.4 fL [facility] Mean Cell Hemoglobin 32.5(H) 27.1 - 32.0 pg [facility] Mean Cell Hemoglobin Concentration 34.7 31.7 - 35.0 g/dL [facility] Platelet 120(L) 145 - 357 x10(3)/mc L [facility] RDW Standard Deviation 42.9 37.0 - 46.0 fL [facility] RDW coefficient of variation 12.9 11.5 - 14.1 % [facility] Mean Platelet Volume 11.3 7.6 - 12.9 fL [facility] NRBC% auto 0.7 % [facility] NRBC Absolute 0.050(H) 0.000 - 0.000 x10(3)/mc L [facility] Blood 05/16/2023 4:20 AM EDT 05/16/2023 4:29 AM EDT Narrative Resulting Agency Comment Spec In Lab James Agustin MD HEMATOLOGY ORDER JODIE [facility] [place] [address] * (ABNORMAL) Basic Metabolic Panel (non-fasting) (05/16/2023 4:20 AM EDT) Glucose 89 65 - 199 mg/dL [facility] Comment:Diabetes: >=200 mg/d L plus symptoms Blood Urea Nitrogen 108(H) 8 - 18 mg/dL [facility] Creatinine 4.74(H) 0.70 - 1.20 mg/dL [facility] Comment:result rechecked-OLIVA Sodium 132(L) 135 - 145 mmol/L [facility] Potassium 3.9 3.5 - 5.0 mmol/L [facility] Comment: Please note: ??Patients with WBC >100,000 may have falsely elevated Potassium levels. ??For accurate Potassium quantification in these patients send serum separator tube (gold top) for subsequent determinations. ??Contact the Clinical Chemistry Laboratory if there are any questions. Chloride 95(L) 98 - 107 mmol/L [facility] Carbon Dioxide 18(L) 22 - 31 mmol/L [facility] Anion Gap 19(H) 5 - 15 mmol/L [facility] Calcium 9.2 8.5 - 10.5 mg/dL [facility] Est Glomerular Filtration Rate 10(L) >=60 mL/min/1. 73 m?? [facility] Comment: This patient's estimated GFR [...] MD CHEMISTRY ORDERABLE S Performing Organization Address [facility] Co de Phone Number [facility] [place] [address] * (ABNORMAL) Iron and TIBC (05/16/2023 4:20 AM EDT) Iron 31 30 - 150 mcg/dL [facility] TIBC 259 250 - 450 mcg/dL [facility] Iron Saturation 12(L) 20 - 50 % [facility] Blood 05/16/2023 4:20 AM EDT 05/16/2023 4:29 AM EDT Narrative Resulting Agency Comment Spec In Lab Kristopher Ayoub MD CHEMISTRY ORDERABLES Performing Organization Address [facility]/ZIP Co de Phone Number [facility] [place] [address] * (ABNORMAL) Basic Metabolic Panel (non-fasting) (05/15/2023 12:50 AM EDT) Glucose 101 65 - 199 mg/dL [facility] Comment:Diabetes: >=200 mg/d L plus symptoms Blood Urea Nitrogen 109(H) 8 - 18 mg/dL [facility] Creatinine 5.62(H) 0.70 - 1.20 mg/dL [facility] Comment:result rechecked-KS Sodium 131(L) 135 - 145 mmol/L [facility] Comment:result rechecked-KS Potassium 3.7 3.5 - 5.0 mmol/L [facility] Comment: result rechecked-KS Please note: ??Patients with WBC >100,000 may have falsely elevated Potassium levels. ??For accurate Potassium quantification in these patients send serum separator tube (gold top) for subsequent determinations. ??Contact the Clinical Chemistry Laboratory if there are any questions. Chloride 92(L) 98 - 107 mmol/L [facility] Comment:result rechecked-KS Carbon Dioxide 18(L) 22 - 31 mmol/L [facility] Comment:result rechecked-KS Anion Gap 21(H) 5 - 15 mmol/L [facility] Calcium 8.9 8.5 - 10.5 mg/dL [facility] Est Glomerular Filtration Rate 8(L) >=60 mL/min/1. 73 m?? [facility] Comment: This patient's estimated GFR [...] Lab Alirio Hudson MD CHEMISTRY ORDERABLE S [facility] [place] [address] * (ABNORMAL) Hemogram (05/15/2023 12:50 AM EDT) White Blood Cell 9.1 4.0 - 9.5 x10(3)/mc L [facility] Red Blood Cell 2.19(L) 4.00 - 5.21 x10(6)/mc L [facility] Hemoglobin 7.2(L) 11.7 - 15.5 g/dL [facility] Hematocrit 20.6(L) 35.7 - 45.8 % [facility] Mean Cell Volume 94.1 82.6 - 94.4 fL [facility] Mean Cell Hemoglobin 32.9(H) 27.1 - 32.0 pg [facility] Mean Cell Hemoglobin Concentration 35.0 31.7 - 35.0 g/dL [facility] Platelet 109(L) 145 - 357 x10(3)/mc L [facility] RDW Standard Deviation 43.6 37.0 - 46.0 fL [facility] RDW coefficient of variation 12.9 11.5 - 14.1 % [facility] Mean Platelet Volume 10.4 7.6 - 12.9 fL [facility] NRBC% auto 2.1 % [facility] NRBC Absolute 0.190(H) 0.000 - 0.000 x10(3)/ L [facility] Blood 05/15/2023 12:5 0 AM EDT 05/15/2023 12:52 AM EDT Narrative Resulting Agency Comment Spec In Lab Alirio Hudson MD HEMATOLOGY ORDERABL ES Performing Organization Address City/State/[facility] Co de Phone Number [facility] [place] [address] * (ABNORMAL) BLOOD GAS 2 VENOUS (05/15/2023 12:49 AM EDT) pH, Venous 7.33 7.32 - 7.42 [facility] PCO2, Venous 37(L) 41 - 51 mmHg [facility] PO2, Venous 34 25 - 40 mmHg [facility] Bicarbonate, Venous 19.1 mmol/L [facility] Base Excess, Venous -6.8 mmol/L [facility] Hgb Blood Gas 10.8(L) 11.7 - 15.5 g/dL [facility] Oxyhemoglobin, Venous 58.1 % [facility] Carboxyhemoglob in, Venous 0.3 % [facility] Comment: Nonsmokers: 0.5-1.5% COHB Smokers: Variable, but usually less than 10% Toxic: 20-30% COHB Lethal: Greater than 60% COHB Methemoglobin, Venous 0.6 <=1.5 % [facility] Na Whole Blood 136 135 - 145 mmol/L [facility] K Whole Blood 3.7 3.5 - 5.0 mmol/L [facility] Comment: Please note: Patients with WBC >100,000 may have falsely elevated Potassium levels. Contact the Clinical Chemistry Laboratory if there are any questions. ICa Whole Blood 1.12(L) 1.15 - 1.33 mmol/L [facility] Comment: Note: ??Total bilirubin higher than 20 mg/dL may lead to falsely low ionized calcium. CL Whole Blood 95(L) 98 - 107 mmol/L [facility] Gluc Whole Bld 101 65 - 199 mg/dL [facility] Comment:Diabetes: >=200 mg/d L plus symptoms Lactate WB 1.3 0.5 - 2.2 mmol/L [facility] Flow, Mike 1.0 LPM [facility] Blood Gas Source Venous [facility] Blood 05/15/2023 12:4 9 AM EDT 05/15/2023 12:49 AM EDT Alirio Hudson MD POINT OF CARE TEST ORDERABLES Performing Organization Address City/State/[facility] Co de Phone Number [facility] [place] [address] * US Retroperitoneal Complete (05/14/2023 3:53 PM [...] who have questions, please contact the health direct care provider that requested your imaging first. ? Hayden Robledo, Staff Physician Electronically Signed Final Report ?? 05/14/2023 04:39 pm Narrative 05/14/2023 4:39 PM EDT Renal ? (Signed Final 05/14/2023 04:39 pm) PATIENT INFO: ID #: ? [id number] ?: ??55 (67 yrs)(F) Name: ? PURNIMA THACKER ?Visit Date: 05/14/2023 03:44 pm PERFORMED BY: Attending: ?Meena CULP, Hayden Stafford Resident: ? Anand Camejo MD Performed By: ? Consuelo Tello RDMS Referred By: ?ALIRIO HUDSON Location: ? [facility]) PROVIDED: URETRO - Retroperitoneal Complete - [id number] ? [id number] INDICATIONS: [facility] COMPARISON: CT: Abdomen/Pelvis 05/11/23 RIGHT [...] 05/14/2023 04:39 pm) PATIENT INFO: ID #: [id number] : 55 (67 yrs)(F) Name: PURNIMA THACKER Visit Date: 05/14/2023 03:44 pm PERFORMED BY: Attending: Hayden Robledo MD Resident: Anand Camejo MD Performed By: Consuelo Tello RDMS Referred By: ALIRIO HUDSON Location: [facility]ICE([facility]) PROVIDED: URETRO - Retroperitoneal Complete - [id number] INDICATIONS: [facility] COMPARISON: CT: Abdomen/Pelvis 05/11/23 RIGHT [...] who have questions, please contact the health direct care provider that requested your imaging first. Hayden Robledo, Staff Physician Electronically Signed Final Report 05/14/2023 04:39 pm Alirio Hudson MD IMG US GEN ORDERABL ES * CK (05/14/2023 3:17 PM EDT) Creatine Kinase 123 0 - 160 unit/L [facility] Blood 05/14/2023 3:17 PM EDT 05/14/2023 3:31 PM EDT Narrative Resulting Agency Comment Spec In Lab Alirio Hudson MD CHEMISTRY ORDERABLE S Performing Organization Address City/[facility]/ZIP Co de Phone Number [facility] [place] [address] * (ABNORMAL) Uric acid (05/14/2023 3:17 PM EDT) Uric Acid 14.9(H) 2.5 - 6.5 mg/dL [facility] Blood 05/14/2023 3:17 PM EDT 05/14/2023 3:31 PM EDT Narrative Resulting Agency Comment Spec In Lab Alirio Hudson MD CHEMISTRY ORDERABLE S Performing Organization Address City/[facility]/ZIP Co de Phone Number [facility] [place] [address] * (ABNORMAL) Osmolality (05/14/2023 3:17 PM EDT) Osmolality 311(H) 275 - 295 mOsm/kg [facility] Blood 05/14/2023 3:17 PM EDT 05/14/2023 3:31 PM EDT Narrative Resulting Agency Comment Spec In Lab Alirio Hudson MD CHEMISTRY ORDERABLE S Performing Organization Address City/[facility]/ZIP Co de Phone Number [facility] [place] [address] * (ABNORMAL) Differential, Automated (05/14/2023 1:10 AM EDT) Pathologist [facility] Neutrophil % 87.2 % [facility] Neutrophil Absolute 9.74(H) 1.70 - 6.10 x10(3)/ L [facility] Lymph % 3.9 % [facility] Lymphocytes Abs 0.4(L) 0.9 - 3.2 x10(3)/[facility] Monocyte % 7.9 % [facility] Monocyte Abs 0.9 0.3 - 0.9 x10(3)/ L [facility] Eos % 0.0 % [facility] Eosinophils Abs 0.0 0.0 - 0.4 x10(3)/[facility] Basophil % 0.1 % [facility] Baso Absolute 0.0 0.0 - 0.1 x10(3)/[facility] Immature Gran % 0.90 % [facility] Comment: Immature granulocytes(IG's)percentage and absolute count will include metamyelocytes, myelocytes, and promyelocytes. Blood smears from CBCs yielding IG's will be scanned manually for concordance. If this scan disagrees with the automated IG or if promyelocytes are noted, a manual differential will be performed. Immature Gran Absolute 0.10(H) 0.00 - 0.04 x10(3)/ L [facility] Blood 05/14/2023 1:10 AM EDT 05/14/2023 1:24 AM EDT Narrative Resulting Agency Comment Spec In Lab Bonita TOBAR HEMATOLOGY ORDERABLE S [facility] [place] [address] * (ABNORMAL) Hemogram (05/14/2023 1:10 AM EDT) White Blood Cell 11.2(H) 4.0 - 9.5 x10(3)/mc L [facility] Red Blood Cell 2.19(L) 4.00 - 5.21 x10(6)/[facility] Hemoglobin 7.2(L) 11.7 - 15.5 g/dL [facility] Hematocrit 20.3(L) 35.7 - 45.8 % [facility] Mean Cell Volume 92.7 82.6 - 94.4 fL [facility] Mean Cell Hemoglobin 32.9(H) 27.1 - 32.0 pg [facility] Mean Cell Hemoglobin Concentration 35.5(H) 31.7 - 35.0 g/dL [facility] Platelet 112(L) 145 - 357 x10(3)/mc L [facility] RDW Standard Deviation 41.4 37.0 - 46.0 fL [facility] RDW coefficient of variation 12.5 11.5 - 14.1 % [facility] Mean Platelet Volume 10.4 7.6 - 12.9 fL [facility] NRBC% auto 1.5 % [facility] NRBC Absolute 0.170(H) 0.000 - 0.000 x10(3)/mc L [facility] Blood 05/14/2023 1:10 AM EDT 05/14/2023 1:24 AM EDT Narrative Resulting Agency Comment Spec In Lab Bonita TOBAR HEMATOLOGY ORDERABLE S [facility] [place] [address] * (ABNORMAL) Comprehensive metabolic panel (non-fasting) (05/14/2023 1:10 AM EDT) Glucose 120 65 - 199 mg/dL [facility] Comment:Diabetes: >=200 mg/d L plus symptoms Blood Urea Nitrogen 98(H) 8 - 18 mg/dL [facility] Creatinine 4.80(H) 0.70 - 1.20 mg/dL [facility] Comment:result rechecked-ssc Sodium 132(L) 135 - 145 mmol/L [facility] Potassium 4.1 3.5 - 5.0 mmol/L [facility] Comment: Please note: ??Patients with WBC >100,000 may have falsely elevated Potassium levels. ??For accurate Potassium quantification in these patients send serum separator tube (gold top) for subsequent determinations. ??Contact the Clinical Chemistry Laboratory if there are any questions. Chloride 94(L) 98 - 107 mmol/L [facility] Carbon Dioxide 18(L) 22 - 31 mmol/L [facility] Anion Gap 20(H) 5 - 15 mmol/L [facility] Calcium 8.5 8.5 - 10.5 mg/dL [facility] Protein, Total 5.8(L) 6.1 - 8.0 g/dL [facility] Albumin 3.6 3.2 - 5.2 g/dL [facility] Aspartate Aminotransferase 319(H) 0 - 30 unit/L [facility] Alanine Aminotransferase 437(H) 0 - 30 unit/L [facility] Alkaline Phosphatase 86 35 - 105 unit/L [facility] Bilirubin, Total 0.4 0.2 - 1.3 mg/dL [facility] Est Glomerular Filtration Rate 9(L) >=60 mL/min/1. 73 m?? [facility] Comment: This patient's estimated GFR [...] Lab Alirio Hudson MD CHEMISTRY ORDERABLE S [facility] [place] [address] * APTT (05/13/2023 10:15 AM EDT) Partial Thromboplastin Time 27 25 - 37 sec [facility] Comment: The PTT is NOT appropriate for heparin monitoring. Use the Anti-Xa level for heparin monitoring (HEP UFH) or LMWH monitoring (HEP LMW). A PTT less than 37 seconds generally indicates adequate hemostasis. Blood 05/13/2023 10:1 5 AM EDT 05/13/2023 10:46 AM EDT Narrative Resulting Agency Comment Spec In Lab Alirio Hudson MD HEMATOLOGY ORDERABL ES Performing Organization Address [facility] Co de Phone Number [facility] [place] [address] * (ABNORMAL) Prothrombin Time (05/13/2023 10:15 AM EDT) Prothrombin Time 14.6(H) 9.4 - 12.5 sec [facility] International Normalization Ratio 1.3 [facility] Comment: An INR <2.0 indicates [...] MD HEMATOLOGY ORDERABL ES Performing Organization Address [facility] Co de Phone Number [facility] [place] [address] * EKG 12 Lead (05/13/2023 9:22 AM EDT) Ventricular rate 92 BPM MUSE SYSTEM Atrial Rate 92 BPM MUSE SYSTEM P-R Interval 140 ms MUSE SYSTEM QRS Duration 104 ms MUSE SYSTEM Q-T Interval 384 ms MUSE SYSTEM QTC Calculated (Bezet) 474 ms MUSE SYSTEM Calculated P [place] 33 degrees MUSE SYSTEM Calculated R [place] 41 degrees MUSE SYSTEM Calculated T [place] -35 degrees MUSE SYSTEM INTERPRETATION Sinus rhythm with frequent Premature ventricular complexes Septal infarct , age undetermined ST & T wave abnormality, consider lateral ischemia Abnormal ECG When compared with ECG of 12-MAY-2023 10:10, Premature ventricular complexes are now Present I personally reviewed the tracing and edited the fellows interpretation Confirmed by fellow MD Anitha, Carissa ([id number]) on 05/13/2023 3:25:30 PM Confirmed by Maxx Best ([id number]) on 05/13/2023 8:30:56 PM MUSE SYSTEM 05/13/2023 9:22 AM EDT 05/13/2023 8:30 PM EDT Alirio Hudson MD ECG ORDERABLES MUSE SYSTEM * (ABNORMAL) Differential, Automated (05/13/2023 1:15 AM EDT) Neutrophil % 88.1 % [facility] Neutrophil Absolute 7.62(H) 1.70 - 6.10 x10(3)/mc L [facility] Lymph % 3.1 % [facility] Lymphocytes Abs 0.3(L) 0.9 - 3.2 x10(3)/mc L [facility] Monocyte % 7.9 % [facility] Monocyte Abs 0.7 0.3 - 0.9 x10(3)/mc L [facility] Eos % 0.0 % [facility] Eosinophils Abs 0.0 0.0 - 0.4 x10(3)/mc L [facility] Basophil % 0.1 % [facility] Baso Absolute 0.0 0.0 - 0.1 x10(3)/mc L [facility] Immature Gran % 0.80 % [facility] Comment: Immature granulocytes(IG's)percentage and absolute count will include metamyelocytes, myelocytes, and promyelocytes. Blood smears from CBCs yielding IG's will be scanned manually for concordance. If this scan disagrees with the automated IG or if promyelocytes are noted, a manual differential will be performed. Immature Gran Absolute 0.07(H) 0.00 - 0.04 x10(3)/mc L [facility] Blood 05/13/2023 1:15 AM EDT 05/13/2023 1:29 AM EDT Narrative Resulting Agency Comment Spec In Lab Lorri TOBAR HEMATOLOGY ORDERABLE S [facility] [place] [address] * (ABNORMAL) Hemogram (05/13/2023 1:15 AM EDT) Pathologist [facility] White Blood Cell 8.6 4.0 - 9.5 x10(3)/mc L [facility] Red Blood Cell 2.37(L) 4.00 - 5.21 x10(6)/mc L [facility] Hemoglobin 7.8(L) 11.7 - 15.5 g/dL [facility] Hematocrit 22.2(L) 35.7 - 45.8 % [facility] Mean Cell Volume 93.7 82.6 - 94.4 fL [facility] Mean Cell Hemoglobin 32.9(H) 27.1 - 32.0 pg [facility] Mean Cell Hemoglobin Concentration 35.1(H) 31.7 - 35.0 g/dL [facility] Platelet 130(L) 145 - 357 x10(3)/mc L [facility] RDW Standard Deviation 41.7 37.0 - 46.0 fL [facility] RDW coefficient of variation 12.5 11.5 - 14.1 % [facility] Mean Platelet Volume 10.2 7.6 - 12.9 fL [facility] NRBC% auto 0.5 % [facility] NRBC Absolute 0.040(H) 0.000 - 0.000 x10(3)/ L [facility] Blood 05/13/2023 1:15 AM EDT 05/13/2023 1:29 AM EDT Narrative Resulting Agency Comment Spec In Lab Lorri TOBAR HEMATOLOGY ORDERABLE S [facility] [place] [address] * (ABNORMAL) Hepatic Function Panel (05/13/2023 1:15 AM EDT) [facility] Protein, Total 5.5(L) 6.1 - 8.0 g/dL [facility] Albumin 3.0(L) 3.2 - 5.2 g/dL [facility] Aspartate Aminotransferase 792(H) 0 - 30 unit/L [facility] Alanine Aminotransferase 903(H) 0 - 30 unit/L [facility] Alkaline Phosphatase 85 35 - 105 unit/L [facility] Bilirubin, Total 0.5 0.2 - 1.3 mg/dL [facility] Bilirubin, Direct 0.3 0.0 - 0.3 mg/dL [facility] Blood 05/13/2023 1:15 AM EDT 05/13/2023 1:29 AM EDT Narrative Resulting Agency Comment Spec In Lab Alirio Hudson MD CHEMISTRY ORDERABLE S [facility] [place] [address] * (ABNORMAL) Basic Metabolic Panel (non-fasting) (05/13/2023 1:15 AM EDT) Glucose 107 65 - 199 mg/dL [facility] Comment:Diabetes: >=200 mg/d L plus symptoms Blood Urea Nitrogen 82(H) 8 - 18 mg/dL [facility] Creatinine 3.15(H) 0.70 - 1.20 mg/dL [facility] Comment:result rechecked-JSJ Sodium 132(L) 135 - 145 mmol/L [facility] Potassium 3.8 3.5 - 5.0 mmol/L [facility] Comment: Please note: ??Patients with WBC >100,000 may have falsely elevated Potassium levels. ??For accurate Potassium quantification in these patients send serum separator tube (gold top) for subsequent determinations. ??Contact the Clinical Chemistry Laboratory if there are any questions. Chloride 95(L) 98 - 107 mmol/L [facility] Carbon Dioxide 20(L) 22 - 31 mmol/L [facility] Anion Gap 17(H) 5 - 15 mmol/L [facility] Calcium 8.3(L) 8.5 - 10.5 mg/dL [facility] Est Glomerular Filtration Rate 16(L) >=60 mL/min/1. 73 m?? [facility] Comment: This patient's estimated GFR [...] Lab Alirio Hudson MD CHEMISTRY ORDERABLE S [facility] [place] [address] * (ABNORMAL) BLOOD GAS 2 ARTERIAL (05/12/2023 3:57 PM EDT) pH, Arterial 7.39 7.35 - 7.45 [facility] PCO2, Arterial 33(L) 35 - 45 mmHg [facility] PO2, Arterial 101 85 - 104 mmHg [facility] Bicarbonate, Arterial 19.5(L) 20.0 - 26.0 mmol/L [facility] Base Excess, Arterial -5.5(L) -3.0 - 3.0 mmol/L [facility] Hgb Blood Gas 9.8(L) 11.7 - 15.5 g/dL [facility] Oxyhemoglobin, Arterial 95.2 94.0 - 97.0 % [facility] Carboxyhemoglob in, Arterial 0.2 % [facility] Comment: Nonsmokers: 0.5-1.5% COHB Smokers: Variable, but usually less than 10% Toxic: 20-30% COHB Lethal: Greater than 60% COHB Methemoglobin, Arterial 0.8 <=1.5 % [facility] Na Whole Blood 129(L) 135 - 145 mmol/L [facility] K Whole Blood 3.8 3.5 - 5.0 mmol/L [facility] Comment: Please note: Patients with WBC >100,000 may have falsely elevated Potassium levels. Contact the Clinical Chemistry Laboratory if there are any questions. ICa Whole Blood 1.05(L) 1.15 - 1.33 mmol/L [facility] Comment: Note: ??Total bilirubin higher than 20 mg/dL may lead to falsely low ionized calcium. CL Whole Blood 96(L) 98 - 107 mmol/L [facility] Gluc Whole Bld 178 65 - 199 mg/dL [facility] Comment:Diabetes: >=200 mg/d L plus symptoms. Lactate WB 1.5 0.5 - 2.2 mmol/L [facility] FIO2 Art 40 % [facility] PF Ratio Art 252 [facility] Blood 05/12/2023 3:57 PM EDT 05/12/2023 3:57 PM EDT Alirio Hudson MD POINT OF CARE TEST ORDERABLES Performing Organization Address City/[facility] Co de Phone Number [facility] [place] [address] * (ABNORMAL) Coox2 (05/12/2023 2:25 PM EDT) pO2, Coox 37 mmHg [facility] Hgb Blood Gas 9.5(L) 11.7 - 15.5 g/dL [facility] Oxyhemoglobin, Coox 59.9 % [facility] Carboxyhemoglo bin, Coox 0.3 % [facility] Comment: Nonsmokers: 0.5-1.5% COHB Smokers: Variable, but usually less than 10% Toxic: 20-30% COHB Lethal: Greater than 60% COHB Methemoglobin, Coox 0.7 <=1.5 % [facility] Source Coox Mixed Venous [facility] Blood 05/12/2023 2:25 PM EDT 05/12/2023 2:25 PM EDT Alirio Hudson MD POINT OF CARE TEST ORDERABLES Performing Organization Address City/[facility] Co de Phone Number [facility] [place] [address] * (ABNORMAL) BLOOD GAS 2 ARTERIAL (05/12/2023 2:23 PM EDT) pH, Arterial 7.37 7.35 - 7.45 [facility] PCO2, Arterial 36 35 - 45 mmHg [facility] PO2, Arterial 102 85 - 104 mmHg [facility] Bicarbonate, Arterial 20.4 20.0 - 26.0 mmol/L [facility] Base Excess, Arterial -4.8(L) -3.0 - 3.0 mmol/L [facility] Hgb Blood Gas 12.7 11.7 - 15.5 g/dL [facility] Oxyhemoglobin, Arterial 95.4 94.0 - 97.0 % [facility] Carboxyhemoglob in, Arterial 0.3 % [facility] Comment: Nonsmokers: 0.5-1.5% COHB Smokers: Variable, but usually less than 10% Toxic: 20-30% COHB Lethal: Greater than 60% COHB Methemoglobin, Arterial 0.7 <=1.5 % [facility] Na Whole Blood 129(L) 135 - 145 mmol/L [facility] K Whole Blood 3.7 3.5 - 5.0 mmol/L [facility] Comment: Please note: Patients with WBC >100,000 may have falsely elevated Potassium levels. Contact the Clinical Chemistry Laboratory if there are any questions. ICa Whole Blood 1.05(L) 1.15 - 1.33 mmol/L [facility] Comment: Note: ??Total bilirubin higher than 20 mg/dL may lead to falsely low ionized calcium. CL Whole Blood 95(L) 98 - 107 mmol/L [facility] Gluc Whole Bld 168 65 - 199 mg/dL [facility] Comment:Diabetes: >=200 mg/d L plus symptoms. Lactate WB 1.8 0.5 - 2.2 mmol/L [facility] FIO2 Art 40 % [facility] PF Ratio Art 255 [facility] Blood 05/12/2023 2:23 PM EDT 05/12/2023 2:23 PM EDT Alirio Hudson MD POINT OF CARE TEST ORDERABLES [facility] [place] [address] * (ABNORMAL) Troponin (05/12/2023 2:05 PM EDT) Troponin-T, High Sensitivity 1,022(H) <=14 ng/L [facility] Comment: This patient's troponin T [...] troponin value can be found in the [facility] Test Catalog Trop[facility] - [facility] Test Catalog Reference: Fourth [place] Definition of Myocardial Infarction. Journal of the [place] [employer] 2018;72:4366-5087 Blood 05/12/2023 2:05 PM EDT 05/12/2023 2:14 PM EDT Narrative Resulting Agency Comment Spec In Lab Alirio Hudson MD CHEMISTRY ORDERABLE S Performing Organization Address [facility] Co de Phone Number [facility] [place] [address] * (ABNORMAL) Hemoglobin (05/12/2023 2:05 PM EDT) Hemoglobin 8.5(L) 11.7 - 15.5 g/dL [facility] Blood 05/12/2023 2:05 PM EDT 05/12/2023 2:14 PM EDT Narrative Resulting Agency Comment Spec In Lab Alirio Hudson MD HEMATOLOGY ORDERABL ES Performing Organization Address [facility] Co de Phone Number [facility] [place] [address] * Potassium (05/12/2023 2:05 PM EDT) Potassium 3.9 3.5 - 5.0 mmol/L [facility] Comment: Please note: ??Patients with WBC >100,000 may have falsely elevated Potassium levels. ??For accurate Potassium quantification in these patients send serum separator tube (gold top) for subsequent determinations. ??Contact the Clinical Chemistry Laboratory if there are any questions. Blood 05/12/2023 2:05 PM EDT 05/12/2023 2:14 PM EDT Narrative Resulting Agency Comment Spec In Lab Alirio Hudson MD CHEMISTRY ORDERABLE S [facility] [place] [address] * (ABNORMAL) BLOOD GAS 2 ARTERIAL (05/12/2023 11:05 AM EDT) pH, Arterial 7.34(L) 7.35 - 7.45 [facility] PCO2, Arterial 42 35 - 45 mmHg [facility] PO2, Arterial 73(L) 85 - 104 mmHg [facility] Bicarbonate, Arterial 22.1 20.0 - 26.0 mmol/L [facility] Base Excess, Arterial -3.6(L) -3.0 - 3.0 mmol/L [facility] Hgb Blood Gas 9.3(L) 11.7 - 15.5 g/dL [facility] Oxyhemoglobin, Arterial 89.3(L) 94.0 - 97.0 % [facility] Carboxyhemoglob in, Arterial 0.2 % [facility] Comment: Nonsmokers: 0.5-1.5% COHB Smokers: Variable, but usually less than 10% Toxic: 20-30% COHB Lethal: Greater than 60% COHB Methemoglobin, Arterial 0.9 <=1.5 % [facility] Na Whole Blood 131(L) 135 - 145 mmol/L [facility] K Whole Blood 3.8 3.5 - 5.0 mmol/L [facility] Comment: Please note: Patients with WBC >100,000 may have falsely elevated Potassium levels. Contact the Clinical Chemistry Laboratory if there are any questions. ICa Whole Blood 1.04(L) 1.15 - 1.33 mmol/L [facility] Comment: Note: ??Total bilirubin higher than 20 mg/dL may lead to falsely low ionized calcium. CL Whole Blood 96(L) 98 - 107 mmol/L [facility] Gluc Whole Bld 152 65 - 199 mg/dL [facility] Comment:Diabetes: >=200 mg/d L plus symptoms. Lactate WB 2.8(H) 0.5 - 2.2 mmol/L [facility] FIO2 Art 40 % [facility] PF Ratio Art 182 [facility] Blood 05/12/2023 11:0 5 AM EDT 05/12/2023 11:05 AM EDT Alirio Hudson MD POINT OF CARE TEST ORDERABLES Performing Organization Address City/State/[facility] Co de Phone Number [facility] [place] [address] * (ABNORMAL) BLOOD GAS 2 ARTERIAL (05/12/2023 10:14 AM EDT) pH, Arterial 7.18(Criti gabrielle) 7.35 - 7.45 [facility] Comment:Noted by electrical/instrument technician. PCO2, Arterial 45 35 - 45 mmHg [facility] PO2, Arterial 186(H) 85 - 104 mmHg [facility] Bicarbonate, Arterial 16.2(L) 20.0 - 26.0 mmol/L [facility] Base Excess, Arterial -12.2(L) -3.0 - 3.0 mmol/L [facility] Hgb Blood Gas 10.0(L) 11.7 - 15.5 g/dL [facility] Oxyhemoglobin, Arterial 97.0 94.0 - 97.0 % [facility] Carboxyhemoglob in, Arterial 0.2 % [facility] Comment: Nonsmokers: 0.5-1.5% COHB Smokers: Variable, but usually less than 10% Toxic: 20-30% COHB Lethal: Greater than 60% COHB Methemoglobin, Arterial 0.9 <=1.5 % [facility] Na Whole Blood 129(L) 135 - 145 mmol/L [facility] K Whole Blood 3.6 3.5 - 5.0 mmol/L [facility] Comment: Please note: Patients with WBC >100,000 may have falsely elevated Potassium levels. Contact the Clinical Chemistry Laboratory if there are any questions. ICa Whole Blood 1.10(L) 1.15 - 1.33 mmol/L [facility] Comment: Note: ??Total bilirubin higher than 20 mg/dL may lead to falsely low ionized calcium. CL Whole Blood 97(L) 98 - 107 mmol/L [facility] Gluc Whole Bld 161 65 - 199 mg/dL [facility] Comment:Diabetes: >=200 mg/d L plus symptoms. Lactate WB 3.3(H) 0.5 - 2.2 mmol/L [facility] FIO2 Art 100 % [facility] PF Ratio Art 186 [facility] Blood 05/12/2023 10:1 4 AM EDT 05/12/2023 10:14 AM EDT Alirio Hudson MD POINT OF CARE TEST ORDERABLES [facility] [place] [address] * EKG 12 Lead (05/12/2023 10:10 AM EDT) Ventricular rate 116 BPM MUSE SYSTEM Atrial Rate 116 BPM MUSE SYSTEM P-R Interval 158 ms MUSE SYSTEM QRS Duration 114 ms MUSE SYSTEM Q-T Interval 348 ms MUSE SYSTEM QTC Calculated (Bezet) 483 ms MUSE SYSTEM Calculated P [place] 37 degrees MUSE SYSTEM Calculated R [place] 31 degrees MUSE SYSTEM Calculated T [place] -138 degrees MUSE SYSTEM INTERPRETATION Sinus tachycardia [...] the fellows interpretation Confirmed by fellow MD Licea Andrew ([id number]) on 05/12/2023 1:04:20 PM Confirmed by MD Villareal Danette ([id number]) on 05/12/2023 9:28:34 PM MUSE SYSTEM 05/12/2023 [...] questions please contact the health direct care provider that requested your imaging first. [...] course of the esophagus and outside the extge-ov-btpf. Interval retraction of right IJ approach pulmonary [...] expected course ofthe esophagus and outside the xxehp-bi-ixjl. Interval retraction of right IJ approach pulmonary [...] have questions please contactthe health direct care provider that requested your imaging first. [...] 1955 ? Height: 154 cm ? Account: [id number] Age: 67 yrs ? Weight: 75 kg Gender: Female ?BSA: 1.7 m2 Ordering Physician: RADHA HOLLINS Referring Physician: RADHA HOLLINS Performed By: Dilma Bee RDCS Reason For Study: Guidance for TAVR procedure Exam Location: [facility]. Interpretation Summary PRE TAVR: There is severe [...] mL/m2. POST TAVR: Normal function of the cnhyc-nw-tfzwl prosthesis. See below for hemodynamic parameters. Slight improvement in left and right ventricular systolic function. LVEF now 20-25%. No pericardial effusion. See report for additional findings. Procedure Limited - 76020. Doppler - 08715. Color Doppler - 29597. Left Ventricle Left ventricle is of normal [...] 307:33 AMBP: 96/63 mmHg Patient Location: [address] : 1955 Height: 154 cm Account: [id number] Age: 67 yrs Weight: 75 kg Gender: Female BSA: 1.7 m2 Ordering Physician: RADHA HOLLINS Referring Physician: RADHA HOLLINS Performed By: Dilma Bee RDCS Reason For Study: Guidance for TAVR procedure Exam Location: [facility]. Interpretation Summary PRE TAVR: There is severe [...] 28mL/m2. POST TAVR: Normal function of the vyzmz-us-ckgyg prosthesis. See belowfor hemodynamic parameters. Slight improvement in left and right ventricularsystolic function. LVEF now 20-25%. No pericardial effusion. See report for additional findings. Procedure Limited - 84717. Doppler - 42694. Color Doppler - 47215. Left Ventricle Left ventricle is of normal [...] Narrative 05/12/2023 2:37 PM EDT ?[facility] ? Cardiac Catheterization/Intervention Report ? Patient Name: Kirstie, Purnima M. ? Procedure Date: 05/12/2023 ? A #: [id number] ? Primary Physician: Young, Antelmo N ? Case #: [id number] ? File Name: [id number] ? Catheterization Order Number: [id number] ? [facility] ? Final Report [place], [place] ? Patient Name: ? Purnima Thacker ? ID#: ?[id number] ? : ?1955 ? Procedure Date: ? May 12, 2023 ? Case #: ? [id number] ? Room: ? 6 ? Case Physicians: ?Antelmo Sharma M.D. ?Start: ?08:03 ?Alirio Hudson M.D. ?Admission: ??05/08/2023 ?Lynda Mcgowan M.D. ? Discharge: ??05/22/2023 ?Fellow: ? Rebekah Tejeda M.D. ? Referring Physician: ??Mario Alberto Chin M.D. ? Procedures: ?* Coronary Angiography ?* Left Heart Catheterization ?* Coronary Stent Insertion ?* Transcatheter Aortic Valve Replacement ?* Vascular Closure Device Deployment ?* Temporary Pacemaker Insertion In [employer] ?* Endotracheal Intubation By Non-Cath Physician ?* [...] was designated as ASA Class IV. The [facility] clinical ?frailty scale is 4: Vulnerable. ? [...] ??A premounted 4.00 x 30 mm Nils [place] (MINNA) was ? deployed with a maximum [...] calculated STS risk score was 30.1%. A nziqg-fn-esvab ?procedure was performed on the pre-existing bioprosthetic stented ?prosthesis. The priority of the zmpnv-st-evmxa procedure was Elective. ?The procedure was performed [...] Lai 3 Ultra RESILIA 23 mm THV (s/d=[id number]) transcatheter ?valve was inserted using standard technique. [...] to nor was it given in the ?clinical laboratory manager. ?Recommended anti-platelet/anti-thrombotic regimen: ?Continue aspirin 81 mg daily for indefinitely. ?These recommendations are made at the time of the intervention. Patient ?and provider preferences or a changing clinical situation may require ?modification of this regimen. Consult [facility] Interventional Cardiology for ?questions. ? Conclusions: ?* [...] regimen. ? Comments: ?Successful right transfemoral TAVR Lfotg-xb-Njfiy with a 23 mm Lai 3 ?THV. [...] insertion-coronary, access site angiography, ?temporary pacemaker in clinical laboratory manager, intubation-non cath physician, vascular ?closure device, transthoracic echo ??and TAVR. Dr. Alirio Hudson M.D. ?performed the left heart catheterization, access site angiography, ?temporary pacemaker in clinical laboratory manager, vascular closure device, transthoracic ?echo , TAVR and CPR during cath. Dr. Lynda Mcgowan M.D. performed the ABG, ?anesthesia and intubation-non cath physician. ? Antelmo Sharma M.D. ? Electronically Signed by: Antelmo Sharma, M.D. ? Report Finalized: 05/12/2023 ??14:31 ? Report Last Ammended: 07/01/2023 ??11:30 ? Procedure Note Antelmo Sharma MD - 07/01/2023 [facility] Cardiac Catheterization/Intervention Report Patient Name: Purnima Thacker Procedure Date: 05/12/2023 A #: [id number] Primary Physician: Antelmo Sharma Case #: [id number] File Name: [id number] Catheterization Order Number: [id number] [facility] FinalReport [place], [place] Patient Name: Purnima Thacker ID#:[id number] :1955 Procedure Date: May 12, 2023 Case #: [id number] Room: 6 Case Physicians: Antelmo Sharma M.D. Start: 08:03 Alirio Hudson M.D. Admission:05/08/2023 Lynda Mcgowan M.D. Discharge:05/22/2023 Fellow: Rebekah Tejeda M.D. Referring Physician: Mario Alberto Chin M.D. Procedures: * Coronary Angiography * Left Heart Catheterization * Coronary Stent Insertion * Transcatheter Aortic Valve Replacement * Vascular Closure Device Deployment * Temporary Pacemaker Insertion In [employer] * Endotracheal Intubation By Non-Cath Physician * [...] A premounted 4.00 x 30 mm Nils [place] (MINNA) was deployed with a maximum inflation [...] calculated STS risk score was 30.1%. A kohyg-ql-wtdqs procedure was performed on the pre-existing bioprosthetic stented prosthesis. The priority of the mhlud-ux-odnxe procedure wasElective. The procedure was performed under Moderate sedation performed byLynda Mcgowan M.D. (see anesthesia report for additional details). Alirio Hudson M.D. participated in the case (see Cardiac Surgery reportfor additional details). The TAVR sheath was a 14 Fr Corona eSheath Introducer and theaccess site was femoral. Rapid ventricular pacing was performed. An Corona Lai 3 Ultra RESILIA 23 mm THV (s/u=[id number])transcatheter valve was inserted using standard technique. The [...] prior to nor was it given inthe clinical laboratory manager. Recommended anti-platelet/anti-thrombotic regimen: Continue aspirin 81 mg daily for indefinitely. These recommendations are made at the time of the intervention.Patient and provider preferences or a changing clinical situation mayrequire modification of this regimen. Consult [facility] Interventional Cardiologyfor questions. Conclusions: * Nonobstructive disease [...] this regimen. Comments: Successful right transfemoral TAVR Gwpdf-an-Cvmta with a 23 mmSapien 3 THV. We [...] insertion-coronary, access site angiography, temporary pacemaker in clinical laboratory manager, intubation-non cath physician,vascular closure device, transthoracic echo and TAVR. Dr. Alirio Hudson M.D. performed the left heart catheterization, access site angiography, temporary pacemaker in clinical laboratory manager, vascular closure device,transthoracic echo , [...] pH, POC 7.20(Crit ical) 7.35 - 7.45 [facility] Comment:Critical value OK, Yamel C Lab. pCO2, POC 42 35 - 45 mmHg [facility] pO2, POC 260(H) 85 - 104 mmHg [facility] Base Excess, POC -11.0(L) -3.0 - 3.0 mmol/L [facility] Bicarbonate, POC 16.7(L) 20.0 - 26.0 mmol/L [facility] Sodium, POC 129(L) 135 - 145 mmol/L [facility] POC Potassium 3.8 3.5 - 5.0 mmol/L [facility] Ionized Calcium, POC 1.12(L) 1.15 - 1.33 mmol/L [facility] POC Hematocrit 23.0(L) 34.0 - 45.0 % [facility] POC Calc Hgb 7.8(L) 11.2 - 15.7 g/dL [facility] Comment:The calculation of h emoglobin from hematocrit assumes a normal MCHC. POC Bgas Loc CC Lab [facility] Blood 05/12/2023 8:50 AM EDT 05/13/2023 12:00 PM EDT Alirio Hudson MD CHEMISTRY ORDERABLE S [facility] [place] [address] * (ABNORMAL) Point of Care Blood Gas Historical (05/12/2023 8:10 AM EDT) pH, POC 7.27(Crit ical) 7.35 - 7.45 [facility] Comment:Critical value OK, C C Lab. pCO2, POC 37 35 - 45 mmHg [facility] pO2, POC 29(Critic al) 85 - 104 mmHg [facility] Comment:Critical value OK, C C Lab. Base Excess, POC -10.0(L) -3.0 - 3.0 mmol/L [facility] Bicarbonate, POC 16.7(L) 20.0 - 26.0 mmol/L [facility] Sodium, POC 123(L) 135 - 145 mmol/L [facility] POC Potassium 4.0 3.5 - 5.0 mmol/L [facility] Ionized Calcium, POC 1.12(L) 1.15 - 1.33 mmol/L [facility] POC Hematocrit 27.0(L) 34.0 - 45.0 % [facility] POC Calc Hgb 9.2(L) 11.2 - 15.7 g/dL [facility] Comment:The calculation of h emoglobin from hematocrit assumes a normal MCHC. POC Bgas Loc CC Lab [facility] Blood 05/12/2023 8:10 AM EDT 05/13/2023 12:00 PM EDT Alirio uHdson MD CHEMISTRY ORDERABLE S [facility] [place] [address] * (ABNORMAL) Lactate, whole blood, send to lab ([facility]) (05/12/2023 7:00 AM EDT) Lactate WB 2.4(H) 0.5 - 2.2 mmol/L [facility] Blood 05/12/2023 7:00 AM EDT 05/12/2023 7:09 AM EDT Narrative Resulting Agency Comment Spec In Lab Radha Hollins MD CHEMISTRY ORDERABL ES Performing Organization Address City/[facility]/ZIP Co de Phone Number [facility] [place] [address] * (ABNORMAL) Comprehensive metabolic panel (non-fasting) (05/12/2023 6:00 AM EDT) Glucose 167 65 - 199 mg/dL [facility] Comment:Diabetes: >=200 mg/d L plus symptoms Blood Urea Nitrogen 67(H) 8 - 18 mg/dL [facility] Creatinine 2.01(H) 0.70 - 1.20 mg/dL [facility] Sodium 131(L) 135 - 145 mmol/L [facility] Potassium 4.3 3.5 - 5.0 mmol/L [facility] Comment: Please note: ??Patients with WBC >100,000 may have falsely elevated Potassium levels. ??For accurate Potassium quantification in these patients send serum separator tube (gold top) for subsequent determinations. ??Contact the Clinical Chemistry Laboratory if there are any questions. Chloride 97(L) 98 - 107 mmol/L [facility] Carbon Dioxide 14(L) 22 - 31 mmol/L [facility] Anion Gap 20(H) 5 - 15 mmol/L [facility] Calcium 8.6 8.5 - 10.5 mg/dL [facility] Protein, Total 6.3 6.1 - 8.0 g/dL [facility] Albumin 3.5 3.2 - 5.2 g/dL [facility] Aspartate Aminotransferase 1,435(H) 0 - 30 unit/L [facility] Alanine Aminotransferase 1,174(H) 0 - 30 unit/L [facility] Alkaline Phosphatase 100 35 - 105 unit/L [facility] Bilirubin, Total 0.9 0.2 - 1.3 mg/dL [facility] Est Glomerular Filtration Rate 27(L) >=60 mL/min/1. 73 m?? [facility] Comment: This patient's estimated GFR [...] Lab Radha Hollins MD CHEMISTRY ORDERABL ES [facility] [place] [address] * (ABNORMAL) Coox2 (05/12/2023 5:08 AM EDT) pO2, Coox 24 mmHg [facility] Hgb Blood Gas 10.4(L) 11.7 - 15.5 g/dL [facility] Oxyhemoglobin, Coox 30.7 % [facility] Carboxyhemoglo bin, Coox 0.3 % [facility] Comment: Nonsmokers: 0.5-1.5% COHB Smokers: Variable, but usually less than 10% Toxic: 20-30% COHB Lethal: Greater than 60% COHB Methemoglobin, Coox 0.8 <=1.5 % [facility] Source Coox Mixed Venous [facility] Blood 05/12/2023 5:08 AM EDT 05/12/2023 5:08 AM EDT Radha Hollins MD POINT OF CARE TEST ORDERABLES Performing Organization Address City/[facility] Co de Phone Number [facility] [place] [address] * (ABNORMAL) Coox2 (05/12/2023 3:21 AM EDT) pO2, Coox 25 mmHg [facility] Hgb Blood Gas 10.8(L) 11.7 - 15.5 g/dL [facility] Oxyhemoglobin, Coox 32.7 % [facility] Carboxyhemoglo bin, Coox 0.3 % [facility] Comment: Nonsmokers: 0.5-1.5% COHB Smokers: Variable, but usually less than 10% Toxic: 20-30% COHB Lethal: Greater than 60% COHB Methemoglobin, Coox 0.7 <=1.5 % [facility] Source Coox Mixed Venous [facility] Blood 05/12/2023 3:21 AM EDT 05/12/2023 3:21 AM EDT Radha Hollins MD POINT OF CARE TEST ORDERABLES Performing Organization Address [facility] Co de Phone Number [facility] [place] [address] * (ABNORMAL) BLOOD GAS 2 ARTERIAL (05/12/2023 3:18 AM EDT) pH, Arterial 7.34(L) 7.35 - 7.45 [facility] PCO2, Arterial 30(L) 35 - 45 mmHg [facility] PO2, Arterial 72(L) 85 - 104 mmHg [facility] Bicarbonate, Arterial 16.0(L) 20.0 - 26.0 mmol/L [facility] Base Excess, Arterial -9.8(L) -3.0 - 3.0 mmol/L [facility] Hgb Blood Gas 11.0(L) 11.7 - 15.5 g/dL [facility] Oxyhemoglobin, Arterial 89.8(L) 94.0 - 97.0 % [facility] Carboxyhemoglob in, Arterial 0.3 % [facility] Comment: Nonsmokers: 0.5-1.5% COHB Smokers: Variable, but usually less than 10% Toxic: 20-30% COHB Lethal: Greater than 60% COHB Methemoglobin, Arterial 0.7 <=1.5 % [facility] Na Whole Blood 131(L) 135 - 145 mmol/L [facility] K Whole Blood 4.2 3.5 - 5.0 mmol/L [facility] Comment: Please note: Patients with WBC >100,000 may have falsely elevated Potassium levels. Contact the Clinical Chemistry Laboratory if there are any questions. ICa Whole Blood 1.12(L) 1.15 - 1.33 mmol/L [facility] Comment: Note: ??Total bilirubin higher than 20 mg/dL may lead to falsely low ionized calcium. CL Whole Blood 100 98 - 107 mmol/L [facility] Gluc Whole Bld 160 65 - 199 mg/dL [facility] Comment:Diabetes: >=200 mg/d L plus symptoms. Lactate WB 2.7(H) 0.5 - 2.2 mmol/L [facility] Flow Art 5.0 LPM [facility] Blood 05/12/2023 3:18 AM EDT 05/12/2023 3:18 AM EDT Radha Hollins MD POINT OF CARE TEST ORDERABLES [facility] [place] [address] * (ABNORMAL) Coox2 (05/12/2023 1:14 AM EDT) pO2, Coox 28 mmHg [facility] Hgb Blood Gas 10.9(L) 11.7 - 15.5 g/dL [facility] Oxyhemoglobin, Coox 37.3 % [facility] Carboxyhemoglo bin, Coox 0.3 % [facility] LABORATORY Comment: Nonsmokers: 0.5-1.5% COHB Smokers: Variable, but usually less than 10% Toxic: 20-30% COHB Lethal: Greater than 60% COHB Methemoglobin, Coox 0.5 <=1.5 % [facility] Source Coox Mixed Venous [facility] Blood 05/12/2023 1:14 AM EDT 05/12/2023 1:14 AM EDT Radha Hollins MD POINT OF CARE TEST ORDERABLES [facility] [place] [address] * (ABNORMAL) BLOOD GAS 2 ARTERIAL (05/12/2023 1:06 AM EDT) pH, Arterial 7.34(L) 7.35 - 7.45 [facility] PCO2, Arterial 30(L) 35 - 45 mmHg [facility] PO2, Arterial 81(L) 85 - 104 mmHg [facility] Bicarbonate, Arterial 15.7(L) 20.0 - 26.0 mmol/L [facility] Base Excess, Arterial -10.1(L) -3.0 - 3.0 mmol/L [facility] Hgb Blood Gas 11.0(L) 11.7 - 15.5 g/dL [facility] Oxyhemoglobin, Arterial 92.3(L) 94.0 - 97.0 % [facility] Carboxyhemoglob in, Arterial 0.2 % [facility] Comment: Nonsmokers: 0.5-1.5% COHB Smokers: Variable, but usually less than 10% Toxic: 20-30% COHB Lethal: Greater than 60% COHB Methemoglobin, Arterial 0.6 <=1.5 % [facility] Na Whole Blood 131(L) 135 - 145 mmol/L [facility] K Whole Blood 4.2 3.5 - 5.0 mmol/L [facility] Comment: Please note: Patients with WBC >100,000 may have falsely elevated Potassium levels. Contact the Clinical Chemistry Laboratory if there are any questions. ICa Whole Blood 1.13(L) 1.15 - 1.33 mmol/L [facility] Comment: Note: ??Total bilirubin higher than 20 mg/dL may lead to falsely low ionized calcium. CL Whole Blood 99 98 - 107 mmol/L [facility] Gluc Whole Bld 132 65 - 199 mg/dL [facility] Comment:Diabetes: >=200 mg/d L plus symptoms. Lactate WB 2.7(H) 0.5 - 2.2 mmol/L [facility] Flow Art 5.0 LPM [facility] Blood 05/12/2023 1:06 AM EDT 05/12/2023 1:06 AM EDT Radha Hollins MD POINT OF CARE TEST ORDERABLES [facility] [place] [place] [address] * (ABNORMAL) Differential, Automated (05/12/2023 1:05 AM EDT) Neutrophil % 83.3 % [facility] Neutrophil Absolute 7.49(H) 1.70 - 6.10 x10(3)/mc L [facility] Lymph % 7.1 % [facility] Lymphocytes Abs 0.6(L) 0.9 - 3.2 x10(3)/mc L [facility] Monocyte % 8.9 % [facility] Monocyte Abs 0.8 0.3 - 0.9 x10(3)/mc L [facility] Eos % 0.0 % [facility] Eosinophils Abs 0.0 0.0 - 0.4 x10(3)/mc L [facility] Basophil % 0.1 % [facility] Baso Absolute 0.0 0.0 - 0.1 x10(3)/mc L [facility] Immature Gran % 0.60 % [facility] Comment: Immature granulocytes(IG's)percentage and absolute count will include metamyelocytes, myelocytes, and promyelocytes. Blood smears from CBCs yielding IG's will be scanned manually for concordance. If this scan disagrees with the automated IG or if promyelocytes are noted, a manual differential will be performed. Immature Gran Absolute 0.05(H) 0.00 - 0.04 x10(3)/mc L [facility] Blood 05/12/2023 1:05 AM EDT 05/12/2023 1:15 AM EDT Narrative Resulting Agency Comment Spec In Lab Gianni Fletcher MD HEMATOLOGY ORDERABLE S [facility] [place] [address] * (ABNORMAL) Hemogram (05/12/2023 1:05 AM EDT) White Blood Cell 9.0 4.0 - 9.5 x10(3)/mc L [facility] Red Blood Cell 3.01(L) 4.00 - 5.21 x10(6)/mc L [facility] Hemoglobin 9.8(L) 11.7 - 15.5 g/dL [facility] Hematocrit 28.7(L) 35.7 - 45.8 % [facility] Mean Cell Volume 95.3(H) 82.6 - 94.4 fL [facility] Mean Cell Hemoglobin 32.6(H) 27.1 - 32.0 pg [facility] Mean Cell Hemoglobin Concentration 34.1 31.7 - 35.0 g/dL [facility] Platelet 186 145 - 357 x10(3)/mc L [facility] RDW Standard Deviation 43.7 37.0 - 46.0 fL [facility] RDW coefficient of variation 12.7 11.5 - 14.1 % [facility] Mean Platelet Volume 10.3 7.6 - 12.9 fL [facility] NRBC% auto 0.0 % [facility] NRBC Absolute 0.000 0.000 - 0.000 x10(3)/ L [facility] Blood 05/12/2023 1:05 AM EDT 05/12/2023 1:15 AM EDT Narrative Resulting Agency Comment Spec In Lab Gianni Fletcher MD HEMATOLOGY ORDERABLE S Performing Organization Address City/[facility]/ZIP Co de Phone Number [facility] [place] [address] * (ABNORMAL) Comprehensive metabolic panel (non-fasting) (05/12/2023 1:05 AM EDT) Glucose 141 65 - 199 mg/dL [facility] Comment:Diabetes: >=200 mg/d L plus symptoms Blood Urea Nitrogen 63(H) 8 - 18 mg/dL [facility] Creatinine 1.86(H) 0.70 - 1.20 mg/dL [facility] Sodium 131(L) 135 - 145 mmol/L [facility] Potassium 4.4 3.5 - 5.0 mmol/L [facility] Comment: Please note: ??Patients with WBC >100,000 may have falsely elevated Potassium levels. ??For accurate Potassium quantification in these patients send serum separator tube (gold top) for subsequent determinations. ??Contact the Clinical Chemistry Laboratory if there are any questions. Chloride 96(L) 98 - 107 mmol/L [facility] Carbon Dioxide 14(L) 22 - 31 mmol/L [facility] Anion Gap 21(H) 5 - 15 mmol/L [facility] Calcium 9.0 8.5 - 10.5 mg/dL [facility] Protein, Total 6.6 6.1 - 8.0 g/dL [facility] Albumin 3.9 3.2 - 5.2 g/dL [facility] Aspartate Aminotransferase 1,227(H) 0 - 30 unit/L [facility] Alanine Aminotransferase 1,097(H) 0 - 30 unit/L [facility] Alkaline Phosphatase 108(H) 35 - 105 unit/L [facility] Bilirubin, Total 1.0 0.2 - 1.3 mg/dL [facility] Est Glomerular Filtration Rate 29(L) >=60 mL/min/1. 73 m?? [facility] Comment: This patient's estimated GFR [...] Lab Radha Hollins MD CHEMISTRY ORDERABL ES [facility] [place] [address] * XR Chest One View (05/12/2023 1:00 [...] questions please contact the health direct care provider that requested your imaging first. [...] have questions please contactthe health direct care provider that requested your imaging first. Radha Hollins MD IMG DX ORDERABLES * (ABNORMAL) Coox2 (05/12/2023 12:30 AM EDT) pO2, Coox 22 mmHg [facility] Hgb Blood Gas 10.9(L) 11.7 - 15.5 g/dL [facility] Oxyhemoglobin, Coox 25.1 % [facility] Carboxyhemoglo bin, Coox 0.3 % [facility] Comment: Nonsmokers: 0.5-1.5% COHB Smokers: Variable, but usually less than 10% Toxic: 20-30% COHB Lethal: Greater than 60% COHB Methemoglobin, Coox 1.4 <=1.5 % [facility] Source Coox Mixed Venous [facility] Blood 05/12/2023 12:3 0 AM EDT 05/12/2023 12:30 AM EDT Radha Hollins MD POINT OF CARE TEST ORDERABLES [facility] [place] [address] * XR Chest One View (05/11/2023 11:45 [...] questions please contact the health direct care provider that requested your imaging first. [...] have questions please contactthe health direct care provider that requested your imaging first. Radha Hollins MD IMG DX ORDERABLES * (ABNORMAL) Lactate, whole blood, send to lab ([facility] (05/11/2023 7:40 PM EDT) Lactate WB 4.8(Critic al) 0.5 - 2.2 mmol/L [facility] Comment:Called by: IMM, Read back by: Magdalena Baires, Date/Time:05/11/23 19:54. Blood 05/11/2023 7:40 PM EDT 05/11/2023 7:49 PM EDT Narrative Resulting Agency Comment Spec In Lab Radha Hollins MD CHEMISTRY ORDERABL ES [facility] [place] [address] * Urine culture (05/11/2023 7:22 PM EDT) Urine Culture 50,000-99,000 cfu/ml Normal mucosal herman Susceptibilit y testing not routinely performed for Coagulase Negative Staphylococcu s species and other Gram Positive organisms from urine. [facility] Clean Catch Urine 05/11/2023 7:22 PM EDT 05/11/2023 8:50 PM EDT Narrative Resulting Agency Comment Spec In Lab Brody Kaplan BICYCLE ASSEMBLER MICROBIOLOGY - GENE RAL ORDERABLES Performing Organization Address [facility]/ZIP Co de Phone Number [facility] [place] [address] * (ABNORMAL) Urinalysis Microscopic Exam (05/11/2023 7:22 PM EDT) RBC, Urine 2 0 - 4 /HPF [facility] WBC, Urine >100(H) 0 - 5 /HPF [facility] Bacteria, Urine Occasional (A) None /HPF [facility] Squamous Epithelial Cells Raw Data, Urine 5(H) <=4 /HPF [facility] Hyaline Casts, Urine 3(H) 0 - 2 /LPF [facility] Clean Catch Urine 05/11/2023 7:22 PM EDT 05/11/2023 7:31 PM EDT Narrative Resulting Agency Comment Spec In Lab Brody Kaplan APRN URINE ORDERABLES Performing Organization Address [facility]/ZIP Co de Phone Number [facility] [place] [address] * (ABNORMAL) Urinalysis with reflex Culture (05/11/2023 7:22 PM EDT) Glucose, Urine Dipstick Negative Negative mg/dL [facility] Protein, Urine Dipstick Trace(A) Negative mg/dL [facility] Bilirubin, Urine Dipstick Negative Negative mg/dL [facility] Comment: Clinical correlation required for positive Urine Bilirubin results as false positive may occur with some drugs and drug related products. If a false positive is suspected a serum total bilirubin should be considered if clinically indicated. Urobilinogen, Urine Dipstick Normal Normal mg/dL [facility] pH, Urn (dipstick) 5.0 5.0 - 8.0 [facility] Blood, Urine Dipstick Trace(A) Negative mg/dL [facility] Ketone, Urine Dipstick Negative Negative mg/dL [facility] Nitrite, Urine Dipstick Negative Negative [facility] Leukocytes, Urine Dipstick Moderate(A) Negative mcL [facility] Appearance, Urine Dipstick Cloudy(A) Clear [facility] Specific [place] Urine Automated >=1.030(A) 1.005 - 1.030 [facility] Color, Urine Dipstick Yellow Yellow [facility] Reflex to Culture Yes [facility] Clean Catch Urine 05/11/2023 7:22 PM EDT 05/11/2023 7:31 PM EDT Narrative Resulting Agency Comment Spec In Lab Brody Kaplan APRN URINE ORDERABLES Performing Organization Address [facility] Co de Phone Number [facility] [place] [address] * (ABNORMAL) pro-Brain Natriuretic Peptide (05/11/2023 7:11 PM EDT) NT-proBNP >35,000(H) <=124 pg/mL [facility] Blood 05/11/2023 7:11 PM EDT 05/11/2023 7:26 PM EDT Narrative Resulting Agency Comment Spec In Lab Radha Hollins MD CHEMISTRY ORDERABL ES Performing Organization Address [facility] Co de Phone Number [facility] [place] [address] * (ABNORMAL) Lactate, whole blood, send to lab ([facility]) (05/11/2023 2:47 PM EDT) Lactate WB 2.9(H) 0.5 - 2.2 mmol/L [facility] Blood 05/11/2023 2:47 PM EDT 05/11/2023 2:53 PM EDT Narrative Resulting Agency Comment Spec In Lab Juan Luis Gonzalez MD CHEMISTRY ORDERABLES [facility] [place] [address] * (ABNORMAL) CT Angiogram Abdomen & Pelvis [...] questions please contact the health direct care provider that requested your imaging first. [...] questions please contact the health direct care provider that requested your imaging first. ? Electronically signed by: Cullen Narayanan MD, [facility] ([phone]), at 05/11/2023 4:37 PM Narrative 05/11/2023 4:37 [...] 610 mm2 Circumference: 88 mm Calcification: Mild Bupbzix-bc-jinbyrgo height: Left: 6.2 mm Right: 5.8 mm THORACIC AORTA Description: Normal course and caliber. ??Mild diffuse atherosclerotic changes. No acute aortopathy noted. Furnace Checker dimensions: Aortic root: 27.6 mm Max ascending [...] 610 mm2 Circumference: 88 mm Calcification: Mild Txqsfhn-hx-kaifjers height: Left: 6.2 mm Right: 5.8 mm THORACIC AORTA Description: Normal course and caliber. Mild diffuse atheroscleroticchanges. No acute aortopathy noted. Furnace Checker dimensions: Aortic root: 27.6 mm Max ascending [...] have questions please contactthe health direct care provider that requested your imaging first. Electronically signed by: Cullen Narayanan MD, [facility]([phone]), at 05/11/2023 4:37 PM Antelmo Sharma MD IMG CT ORDERABLES * (ABNORMAL) Lactate, whole blood, send to lab ([facility]) (05/11/2023 9:29 AM EDT) Lactate WB 3.1(H) 0.5 - 2.2 mmol/L [facility] Blood 05/11/2023 9:29 AM EDT 05/11/2023 9:38 AM EDT Narrative Resulting Agency Comment Spec In Lab Juan Luis Gonzalez MD CHEMISTRY ORDERABLES [facility] [place] [address] * (ABNORMAL) Differential, Automated (05/11/2023 4:42 AM EDT) Neutrophil % 78.1 % [facility] Neutrophil Absolute 5.46 1.70 - 6.10 x10(3)/mc L [facility] Lymph % 10.6 % [facility] Lymphocytes Abs 0.7(L) 0.9 - 3.2 x10(3)/mc L [facility] Monocyte % 9.6 % [facility] Monocyte Abs 0.7 0.3 - 0.9 x10(3)/mc L [facility] Eos % 0.0 % [facility] Eosinophils Abs 0.0 0.0 - 0.4 x10(3)/mc L [facility] Basophil % 0.4 % [facility] Baso Absolute 0.0 0.0 - 0.1 x10(3)/mc L [facility] Immature Gran % 1.30 % [facility] Comment: Immature granulocytes(IG's)percentage and absolute count will include metamyelocytes, myelocytes, and promyelocytes. Blood smears from CBCs yielding IG's will be scanned manually for concordance. If this scan disagrees with the automated IG or if promyelocytes are noted, a manual differential will be performed. Immature Gran Absolute 0.09(H) 0.00 - 0.04 x10(3)/mc L [facility] Blood 05/11/2023 4:42 AM EDT 05/11/2023 4:49 AM EDT Narrative Resulting Agency Comment Spec In Lab Klaudia Reid MD HEMATOLOGY OR DERABLES Performing Organization Address City/[facility]/ZIP Co de Phone Number [facility] [place] [address] * (ABNORMAL) Hemogram (05/11/2023 4:42 AM EDT) White Blood Cell 7.0 4.0 - 9.5 x10(3)/[facility] Red Blood Cell 3.44(L) 4.00 - 5.21 x10(6)/[facility] Hemoglobin 11.1(L) 11.7 - 15.5 g/dL [facility] Hematocrit 32.7(L) 35.7 - 45.8 % [facility] Mean Cell Volume 95.1(H) 82.6 - 94.4 fL [facility] Mean Cell Hemoglobin 32.3(H) 27.1 - 32.0 pg [facility] Mean Cell Hemoglobin Concentration 33.9 31.7 - 35.0 g/dL [facility] Platelet 165 145 - 357 x10(3)/ L [facility] RDW Standard Deviation 43.1 37.0 - 46.0 fL [facility] RDW coefficient of variation 12.7 11.5 - 14.1 % [facility] Mean Platelet Volume 10.1 7.6 - 12.9 fL [facility] NRBC% auto 0.0 % [facility] NRBC Absolute 0.000 0.000 - 0.000 x10(3)/ L [facility] Blood 05/11/2023 4:42 AM EDT 05/11/2023 4:49 AM EDT Narrative Resulting Agency Comment Spec In Lab Klaudia Reid MD HEMATOLOGY OR DERABLES Performing Organization Address City/[facility]/ZIP Co de Phone Number [facility] [place] [address] * Heparin (unfractionated) Level (05/11/2023 4:42 AM EDT) UF Heparin 0.46 IU/mL [facility] Comment: Heparin (anti-Xa) [...] Lab Radha Hollins MD HEMATOLOGY ORDERAB LES [facility] [place] [address] * (ABNORMAL) Comprehensive metabolic panel (non-fasting) (05/11/2023 4:42 AM EDT) Glucose 143 65 - 199 mg/dL [facility] Comment:Diabetes: >=200 mg/d L plus symptoms Blood Urea Nitrogen 42(H) 8 - 18 mg/dL [facility] Creatinine 1.24(H) 0.70 - 1.20 mg/dL [facility] Sodium 134(L) 135 - 145 mmol/L [facility] Potassium 4.6 3.5 - 5.0 mmol/L [facility] Comment: Please note: ??Patients with WBC >100,000 may have falsely elevated Potassium levels. ??For accurate Potassium quantification in these patients send serum separator tube (gold top) for subsequent determinations. ??Contact the Clinical Chemistry Laboratory if there are any questions. Chloride 99 98 - 107 mmol/L [facility] Carbon Dioxide 14(L) 22 - 31 mmol/L [facility] Anion Gap 21(H) 5 - 15 mmol/L [facility] Calcium 9.6 8.5 - 10.5 mg/dL [facility] Protein, Total 7.2 6.1 - 8.0 g/dL [facility] Albumin 3.7 3.2 - 5.2 g/dL [facility] Aspartate Aminotransferase 144(H) 0 - 30 unit/L [facility] Comment:result rechecked-ssc Alanine Aminotransferase 130(H) 0 - 30 unit/L [facility] Comment:result rechecked-ssc Alkaline Phosphatase 72 35 - 105 unit/L [facility] Bilirubin, Total 0.8 0.2 - 1.3 mg/dL [facility] Est Glomerular Filtration Rate 48(L) >=60 mL/min/1. 73 m?? [facility] Comment: This patient's estimated GFR [...] Lab Radha Hollins MD CHEMISTRY ORDERABL ES [facility] [place] [address] * EKG 12 Lead (05/10/2023 1:16 PM EDT) Ventricular rate 118 BPM MUSE SYSTEM Atrial Rate 118 BPM MUSE SYSTEM P-R Interval 152 ms MUSE SYSTEM QRS Duration 104 ms MUSE SYSTEM Q-T Interval 316 ms MUSE SYSTEM QTC Calculated (Bezet) 442 ms MUSE SYSTEM Calculated P [place] 29 degrees MUSE SYSTEM Calculated R [place] 18 degrees MUSE SYSTEM Calculated T [place] -173 degrees MUSE SYSTEM INTERPRETATION Sinus tachycardia [...] Anterior leads Confirmed by MD Villareal Danette ([id number]) on 05/10/2023 8:47:46 PM MUSE SYSTEM 05/10/2023 1:16 PM EDT 05/10/2023 8:47 PM EDT Juan Luis Gonzalez MD ECG ORDERABLES MUSE SYSTEM * Lactate, whole blood, send to lab ([facility]) (05/10/2023 11:52 AM EDT) Lactate WB 1.8 0.5 - 2.2 mmol/L [facility] Blood 05/10/2023 11:5 2 AM EDT 05/10/2023 12:13 PM EDT Narrative Resulting Agency Comment Spec In Lab Juan Luis Gonzalez MD CHEMISTRY ORDERABLES Performing Organization Address City/[facility]/ZIP Co de Phone Number [facility] [place] [address] * XR Chest One View (05/10/2023 11:16 [...] questions please contact the health direct care provider that requested your imaging first. [...] have questions please contactthe health direct care provider that requested your imaging first. Juan Lusi Gonzalez MD IMG DX ORDERABLES * EKG 12 Lead (05/10/2023 7:59 AM EDT) Ventricular rate 115 BPM MUSE SYSTEM Atrial Rate 115 BPM MUSE SYSTEM P-R Interval 142 ms MUSE SYSTEM QRS Duration 102 ms MUSE SYSTEM Q-T Interval 322 ms MUSE SYSTEM QTC Calculated (Bezet) 445 ms MUSE SYSTEM Calculated P [place] 36 degrees MUSE SYSTEM Calculated R [place] 28 degrees MUSE SYSTEM Calculated T [place] -119 degrees MUSE SYSTEM INTERPRETATION Sinus tachycardia with frequent Premature ventricular complexes and Fusion complexes ST & T wave abnormality, consider lateral ischemia Abnormal ECG When compared with ECG of 08-MAY-2023 15:51, No significant change was found I personally reviewed the tracing and edited the fellows interpretation Confirmed by fellow MD Anitha, Carissa ([id number]) on 05/11/2023 6:19:54 AM Confirmed by MD Tram, Chel ([id number]) on 05/11/2023 3:18:56 PM MUSE SYSTEM 05/10/2023 7:59 AM EDT 05/11/2023 3:18 PM EDT Radha Hollins MD ECG ORDERABLES MUSE SYSTEM * (ABNORMAL) Differential, Automated (05/10/2023 2:28 AM EDT) Pathologist [facility] Neutrophil % 77.1 % [facility] Neutrophil Absolute 4.01 1.70 - 6.10 x10(3)/mc L [facility] Lymph % 14.0 % [facility] Lymphocytes Abs 0.7(L) 0.9 - 3.2 x10(3)/mc L [facility] Monocyte % 7.7 % [facility] Monocyte Abs 0.4 0.3 - 0.9 x10(3)/mc L [facility] Eos % 0.4 % [facility] Eosinophils Abs 0.0 0.0 - 0.4 x10(3)/mc L [facility] Basophil % 0.4 % [facility] Baso Absolute 0.0 0.0 - 0.1 x10(3)/mc L [facility] Immature Gran % 0.40 % [facility] Comment: Immature granulocytes(IG's)percentage and absolute count will include metamyelocytes, myelocytes, and promyelocytes. Blood smears from CBCs yielding IG's will be scanned manually for concordance. If this scan disagrees with the automated IG or if promyelocytes are noted, a manual differential will be performed. Immature Gran Absolute 0.02 0.00 - 0.04 x10(3)/mc L [facility] Blood 05/10/2023 2:28 AM EDT 05/10/2023 2:57 AM EDT Narrative Resulting Agency Comment Spec In Lab Klaudia Reid MD HEMATOLOGY OR DERABLES [facility] [place] [address] * (ABNORMAL) Hemogram (05/10/2023 2:28 AM EDT) White Blood Cell 5.2 4.0 - 9.5 x10(3)/mc L [facility] Red Blood Cell 3.11(L) 4.00 - 5.21 x10(6)/ L [facility] Hemoglobin 10.2(L) 11.7 - 15.5 g/dL [facility] Hematocrit 30.2(L) 35.7 - 45.8 % [facility] Mean Cell Volume 97.1(H) 82.6 - 94.4 fL [facility] Mean Cell Hemoglobin 32.8(H) 27.1 - 32.0 pg [facility] Mean Cell Hemoglobin Concentration 33.8 31.7 - 35.0 g/dL [facility] Platelet 151 145 - 357 x10(3)/mc L [facility] RDW Standard Deviation 44.9 37.0 - 46.0 fL [facility] RDW coefficient of variation 12.8 11.5 - 14.1 % [facility] Mean Platelet Volume 9.8 7.6 - 12.9 fL [facility] NRBC% auto 0.0 % [facility] NRBC Absolute 0.000 0.000 - 0.000 x10(3)/mc L [facility] Blood 05/10/2023 2:28 AM EDT 05/10/2023 2:57 AM EDT Narrative Resulting Agency Comment Spec In Lab Klaudia Reid MD HEMATOLOGY OR DERABLES [facility] [place] [address] * (ABNORMAL) Comprehensive metabolic panel (non-fasting) (05/10/2023 2:28 AM EDT) Glucose 100 65 - 199 mg/dL [facility] Comment:Diabetes: >=200 mg/d L plus symptoms Blood Urea Nitrogen 30(H) 8 - 18 mg/dL [facility] Creatinine 0.90 0.70 - 1.20 mg/dL [facility] Sodium 134(L) 135 - 145 mmol/L [facility] Potassium 4.1 3.5 - 5.0 mmol/L [facility] Comment: Please note: ??Patients with WBC >100,000 may have falsely elevated Potassium levels. ??For accurate Potassium quantification in these patients send serum separator tube (gold top) for subsequent determinations. ??Contact the Clinical Chemistry Laboratory if there are any questions. Chloride 102 98 - 107 mmol/L [facility] Carbon Dioxide 20(L) 22 - 31 mmol/L [facility] Anion Gap 12 5 - 15 mmol/L [facility] Calcium 9.3 8.5 - 10.5 mg/dL [facility] Protein, Total 6.4 6.1 - 8.0 g/dL [facility] Albumin 3.7 3.2 - 5.2 g/dL [facility] Aspartate Aminotransferase 24 0 - 30 unit/L [facility] Alanine Aminotransferase 14 0 - 30 unit/L [facility] Alkaline Phosphatase 70 35 - 105 unit/L [facility] Bilirubin, Total 0.5 0.2 - 1.3 mg/dL [facility] Est Glomerular Filtration Rate 70 >=60 mL/min/1. 73 m?? [facility] Comment: This patient's estimated GFR [...] MD CHEMISTRY ORDERABL ES Performing Organization Address [facility] Co de Phone Number [facility] [place] [address] * Heparin (unfractionated) Level (05/10/2023 2:28 AM EDT) Pathologist [facility] UF Heparin 0.37 IU/mL [facility] Comment: Heparin (anti-Xa) levels should [...] MD HEMATOLOGY ORDERAB LES Performing Organization Address [facility] Co de Phone Number [facility] [place] [address] * (ABNORMAL) Differential, Automated (05/09/2023 4:00 AM EDT) Neutrophil % 81.7 % [facility] Neutrophil Absolute 5.26 1.70 - 6.10 x10(3)/mc L [facility] Lymph % 10.7 % [facility] Lymphocytes Abs 0.7(L) 0.9 - 3.2 x10(3)/mc L [facility] Monocyte % 6.5 % [facility] Monocyte Abs 0.4 0.3 - 0.9 x10(3)/mc L [facility] Eos % 0.5 % [facility] Eosinophils Abs 0.0 0.0 - 0.4 x10(3)/mc L [facility] Basophil % 0.3 % [facility] Baso Absolute 0.0 0.0 - 0.1 x10(3)/ L [facility] Immature Gran % 0.30 % [facility] Comment: Immature granulocytes(IG's)percentage and absolute count will include metamyelocytes, myelocytes, and promyelocytes. Blood smears from CBCs yielding IG's will be scanned manually for concordance. If this scan disagrees with the automated IG or if promyelocytes are noted, a manual differential will be performed. Immature Gran Absolute 0.02 0.00 - 0.04 x10(3)/ L [facility] Blood 05/09/2023 4:00 AM EDT 05/09/2023 4:19 AM EDT Narrative Resulting Agency Comment Spec In Lab Klaudia Reid MD HEMATOLOGY OR DERABLES Performing Organization Address City/State/[facility] Co de Phone Number [facility] [place] [address] * (ABNORMAL) Hemogram (05/09/2023 4:00 AM EDT) White Blood Cell 6.4 4.0 - 9.5 x10(3)/mc L [facility] Red Blood Cell 3.15(L) 4.00 - 5.21 x10(6)/mc L [facility] Hemoglobin 10.2(L) 11.7 - 15.5 g/dL [facility] Hematocrit 30.3(L) 35.7 - 45.8 % [facility] Mean Cell Volume 96.2(H) 82.6 - 94.4 fL [facility] Mean Cell Hemoglobin 32.4(H) 27.1 - 32.0 pg [facility] Mean Cell Hemoglobin Concentration 33.7 31.7 - 35.0 g/dL [facility] Platelet 151 145 - 357 x10(3)/mc L [facility] RDW Standard Deviation 44.7 37.0 - 46.0 fL [facility] RDW coefficient of variation 12.8 11.5 - 14.1 % [facility] Mean Platelet Volume 9.4 7.6 - 12.9 fL [facility] NRBC% auto 0.0 % [facility] NRBC Absolute 0.000 0.000 - 0.000 x10(3)/mc L [facility] Blood 05/09/2023 4:00 AM EDT 05/09/2023 4:19 AM EDT Narrative Resulting Agency Comment Spec In Lab Klaudia Reid MD HEMATOLOGY OR DERABLES Performing Organization Address [facility] [place] [address] * Heparin (unfractionated) Level (05/09/2023 4:00 AM EDT) UF Heparin 0.47 IU/mL [facility] Comment: Heparin (anti-Xa) levels should be [...] MD HEMATOLOGY ORDERAB LES Performing Organization Address [facility]/[place] [address] * (ABNORMAL) Comprehensive metabolic panel (non-fasting) (05/09/2023 4:00 AM EDT) Glucose 108 65 - 199 mg/dL [facility] Comment:Diabetes: >=200 mg/d L plus symptoms Blood Urea Nitrogen 31(H) 8 - 18 mg/dL [facility] Creatinine 1.03 0.70 - 1.20 mg/dL [facility] Sodium 137 135 - 145 mmol/L [facility] Potassium 4.4 3.5 - 5.0 mmol/L [facility] Comment: Please note: ??Patients with WBC >100,000 may have falsely elevated Potassium levels. ??For accurate Potassium quantification in these patients send serum separator tube (gold top) for subsequent determinations. ??Contact the Clinical Chemistry Laboratory if there are any questions. Chloride 102 98 - 107 mmol/L [facility] Carbon Dioxide 20(L) 22 - 31 mmol/L [facility] Anion Gap 15 5 - 15 mmol/L [facility] Calcium 9.3 8.5 - 10.5 mg/dL [facility] Protein, Total 6.6 6.1 - 8.0 g/dL [facility] Albumin 3.8 3.2 - 5.2 g/dL [facility] Aspartate Aminotransferase 32(H) 0 - 30 unit/L [facility] Alanine Aminotransferase 18 0 - 30 unit/L [facility] Alkaline Phosphatase 78 35 - 105 unit/L [facility] Bilirubin, Total 0.5 0.2 - 1.3 mg/dL [facility] Est Glomerular Filtration Rate 60 >=60 mL/min/1. 73 m?? [facility] Comment: This patient's estimated GFR [...] MD CHEMISTRY ORDERABL ES Performing Organization Address City/[facility] Co de Phone Number [facility] [place] [address] * (ABNORMAL) pro-Brain Natriuretic Peptide (05/08/2023 4:00 PM EDT) NT-proBNP 25,503(H) <=124 pg/mL [facility] Blood Venous Draw / Unknown 05/08/2023 4:00 PM EDT 05/08/2023 4:25 PM EDT Narrative Resulting Agency Comment Spec In Lab Juan Luis Gonzalez MD CHEMISTRY ORDERABLES Performing Organization Address [facility] Co de Phone Number [facility] [place] [address] * Magnesium (05/08/2023 4:00 PM EDT) Magnesium 0.82 0.69 - 1.07 mmol/L [facility] Blood 05/08/2023 4:00 PM EDT 05/08/2023 4:06 PM EDT Narrative Resulting Agency Comment Spec In Lab Enrique Chua MD CHEMISTRY ORDERABLES Performing Organization Address [facility] Co de Phone Number [facility] [place] [address] * Potassium (05/08/2023 4:00 PM EDT) Potassium 3.9 3.5 - 5.0 mmol/L [facility] Comment: Please note: ??Patients [...] MD CHEMISTRY ORDERABL ES Performing Organization Address [facility] [place] [address] * Heparin (unfractionated) Level (05/08/2023 4:00 PM EDT) [facility] UF Heparin 0.43 IU/mL [facility] Comment: Heparin (anti-Xa) [...] MD HEMATOLOGY ORDERAB LES Performing Organization Address [facility] [place] [address] * EKG 12 Lead (05/08/2023 3:51 PM EDT) [facility] Ventricular rate 98 BPM MUSE SYSTEM Atrial Rate 98 BPM MUSE SYSTEM P-R Interval 150 ms MUSE SYSTEM QRS Duration 102 ms MUSE SYSTEM Q-T Interval 358 ms MUSE SYSTEM QTC Calculated (Bezet) 457 ms MUSE SYSTEM Calculated P [place] 38 degrees MUSE SYSTEM Calculated R [place] 48 degrees MUSE SYSTEM Calculated T [place] -112 degrees MUSE SYSTEM INTERPRETATION Sinus rhythm with frequent and consecutive Premature ventricular and fusion complexes Septal infarct , age undetermined ST & T wave abnormality, consider anterolateral ischemia Abnormal ECG When compared with ECG of 09-NOV-2022 11:17, T wave inversion now evident in Anterolateral leads Confirmed by MD Harshil, Enrique Bell ([id number]) on 05/10/2023 8:11:46 AM MUSE SYSTEM 05/08/2023 3:51 PM EDT 05/10/2023 8:11 AM EDT Radha Hollins MD ECG ORDERABLES MUSE SYSTEM * (ABNORMAL) Differential, Automated (05/08/2023 11:38 AM EDT) Neutrophil % 71.3 % [facility] Neutrophil Absolute 2.91 1.70 - 6.10 x10(3)/mc L [facility] Lymph % 19.1 % [facility] Lymphocytes Abs 0.8(L) 0.9 - 3.2 x10(3)/mc L [facility] Monocyte % 9.0 % [facility] Monocyte Abs 0.4 0.3 - 0.9 x10(3)/mc L [facility] Eos % 0.2 % [facility] Eosinophils Abs 0.0 0.0 - 0.4 x10(3)/mc L [facility] Basophil % 0.2 % [facility] Baso Absolute 0.0 0.0 - 0.1 x10(3)/mc L [facility] Immature Gran % 0.20 % [facility] Comment: Immature granulocytes(IG's)percentage and absolute count will include metamyelocytes, myelocytes, and promyelocytes. Blood smears from CBCs yielding IG's will be scanned manually for concordance. If this scan disagrees with the automated IG or if promyelocytes are noted, a manual differential will be performed. Immature Gran Absolute 0.01 0.00 - 0.04 x10(3)/mc L [facility] Blood 05/08/2023 11:3 8 AM EDT 05/08/2023 11:44 AM EDT Narrative Resulting Agency Comment Spec In Lab Lincoln Sal MD HEMATOLOGY ORDERA BLES [facility] [place] [address] * (ABNORMAL) Hemogram (05/08/2023 11:38 AM EDT) White Blood Cell 4.1 4.0 - 9.5 x10(3)/mc L [facility] Red Blood Cell 3.05(L) 4.00 - 5.21 x10(6)/mc L [facility] Hemoglobin 10.2(L) 11.7 - 15.5 g/dL [facility] Hematocrit 29.6(L) 35.7 - 45.8 % [facility] Mean Cell Volume 97.0(H) 82.6 - 94.4 fL [facility] Mean Cell Hemoglobin 33.4(H) 27.1 - 32.0 pg [facility] Mean Cell Hemoglobin Concentration 34.5 31.7 - 35.0 g/dL [facility] Platelet 136(L) 145 - 357 x10(3)/mc L [facility] RDW Standard Deviation 44.3 37.0 - 46.0 fL [facility] RDW coefficient of variation 12.6 11.5 - 14.1 % [facility] Mean Platelet Volume 9.4 7.6 - 12.9 fL [facility] NRBC% auto 0.0 % [facility] NRBC Absolute 0.000 0.000 - 0.000 x10(3)/ L [facility] Blood 05/08/2023 11:3 8 AM EDT 05/08/2023 11:44 AM EDT Narrative Resulting Agency Comment Spec In Lab Lincoln Sal MD HEMATOLOGY ORDERA BLES [facility] [place] [address] * TSH (05/08/2023 11:38 AM EDT) Thyroid Stimulating Hormone 1.27 0.27 - 4.20 mcIU/mL [facility] Comment: Reference Interval (mcIU/mL): Females: ??First Trimester: 0.23-3.88 ??Second Trimester: 0.22-3.90 ??Third Trimester: 0.44-4.66 Blood 05/08/2023 11:3 8 AM EDT 05/08/2023 11:44 AM EDT Narrative Resulting Agency Comment Spec In Lab Enrique Chua MD CHEMISTRY ORDERABLES Performing Organization Address City/[facility]/ZIP Co de Phone Number [facility] [place] [address] * (ABNORMAL) Phosphorus (05/08/2023 11:38 AM EDT) Phosphorus 4.7(H) 2.5 - 4.5 mg/dL [facility] Blood 05/08/2023 11:3 8 AM EDT 05/08/2023 11:44 AM EDT Narrative Resulting Agency Comment Spec In Lab Enrique Chua MD CHEMISTRY ORDERABLES Performing Organization Address [facility] Co de Phone Number [facility] [place] [address] * Magnesium (05/08/2023 11:38 AM EDT) Magnesium 0.76 0.69 - 1.07 mmol/L [facility] Blood 05/08/2023 11:3 8 AM EDT 05/08/2023 11:44 AM EDT Narrative Resulting Agency Comment Spec In Lab Enrique Chua MD CHEMISTRY ORDERABLES Performing Organization Address [facility] Co de Phone Number [facility] [place] [address] * (ABNORMAL) Basic Metabolic Panel (non-fasting) (05/08/2023 11:38 AM EDT) Glucose 97 65 - 199 mg/dL [facility] Comment:Diabetes: >=200 mg/d L plus symptoms Blood Urea Nitrogen 27(H) 8 - 18 mg/dL [facility] Creatinine 1.02 0.70 - 1.20 mg/dL [facility] Sodium 139 135 - 145 mmol/L [facility] Potassium 4.2 3.5 - 5.0 mmol/L [facility] Comment: Please note: ??Patients with WBC >100,000 may have falsely elevated Potassium levels. ??For accurate Potassium quantification in these patients send serum separator tube (gold top) for subsequent determinations. ??Contact the Clinical Chemistry Laboratory if there are any questions. Chloride 105 98 - 107 mmol/L [facility] Carbon Dioxide 20(L) 22 - 31 mmol/L [facility] Anion Gap 14 5 - 15 mmol/L [facility] Calcium 9.4 8.5 - 10.5 mg/dL [facility] Est Glomerular Filtration Rate 60 >=60 mL/min/1. 73 m?? [facility] Comment: This patient's estimated GFR [...] Chua MD CHEMISTRY ORDERABLES Performing Organization Address City/State/[facility] Co de Phone Number [facility] [place] [address] * ECHO COMPLETE (05/08/2023 11:02 AM EDT) EF 25 HEARTLAB SYSTEM Anatomical Region Laterality Modality Cardiac Other 05/08/2023 10:0 3 AM EDT Narrative 05/08/2023 11:51 AM EDT ? Echocardiogram Report Name: PURNIMA THACKER ?Study Date: 05/08/2023 10:03 AMBP: 92/64 mmHg ? Patient Location: [facility]^CV29^A : 1955 ? Height: 155 cm ? Account: [id number] Age: 67 yrs ? Weight: 78 kg Gender: Female ?BSA: 1.8 m2 Ordering Physician: ENRIQUE CHUA Referring Physician: MARIO ALBERTO CHIN Performed By: CHUCKIE Canchola Reason For Study: SAVR Stenosis Exam Location: [facility]. Interpretation Summary -Left ventricle is severely dilated [...] worsening stenosis. Mitral regurgitation is similar. Procedure Complete-41649. Satisfactory quality. There is normal sinus rhythm. [...] Study Date: 0:03 AMBP: 92/64 mmHg Patient Location:[facility]^CV29^A : 1955 Height: 155 cm Account: [id number] Age: 67 yrs Weight: 78 kg Gender: Female BSA: 1.8 m2 Ordering Physician: ENRIQUE CHUA Referring Physician: MARIO ALBERTO CHIN Performed By: CHUCKIE Canchola Reason For Study: SAVR Stenosis Exam Location: [facility]. Interpretation Summary -Left ventricle is severely dilated [...] suggestsworsening stenosis. Mitral regurgitation is similar. Procedure Complete-42587. Satisfactory quality. There is normal sinus rhythm. 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 11/09/2022 Mixed connective tissue disease [...] ejection fraction Mild coronary artery disease by [facility] 11/09/2022 Stenosis of prosthetic aortic [...] dose on Wed05/12/23 at 1030, Until Discontinued, [place] teeth, Routine Given 05/12/2023 10:04 AM EDT [...] 40 mg, Intravenous, ONCE, 1 dose, On Tu05/11/23 at 2100 Given 05/11/2023 8:16 PM EDT 40 mg furosemide (Lasix) (10 mg/mL) injection 40 mg 40 mg, Intravenous, ONCE, 1 dose, On Wed05/16/23 at 0945 Given 05/16/2023 9:13 AM EDT [...] dose, Starting on Wed05/11/23 at 1040, Until Tu05/11/23 at 1040, Per Protocol, Warning Vesicant/Irritant Medication [...] 10 mg, Subcutaneous, ONCE, 1 dose, On Tu05/18/23 at 1615, For use in Interventional Radiology [...] Wed05/12/23 at 0000, Until Wed05/12/23 at 0151, Fenter, Magdalena P.: cabinet override milrinone (Primacor) (0.2 mg/mL) in [...] 17 g, Oral, DAILY PRN, Starting on Wed05/16/23 at 1025, Until Wed05/17/23 at 0755, Constipation, [...] at 0831, Side port TKO rate, per [facility] flush protocol Rate/Dose Verify 05/13/2023 6:00 AM EDT 10 mL/hr 10 mL/hr Rate/Dose Verify 05/13/2023 4:00 AM EDT 10 mL/hr 10 mL/h r Rate/Dose Verify 05/13/2023 2:00 AM EDT 10 mL/hr 10 mL/h r sodium chloride 0.9% infusion 10-30 mL/hr, Intravenous, DAILY PRN, Starting on Wed05/12/23 at 0944, Until Wed05/17/23 at 0831, Side port TKO rate, per [facility] flush protocol. Rate/Dose Verify 05/17/2023 8:00 [...] Gallego, VALDO) 0827 (Given - Provider: Kia Gallego RN) lidocaine (Lidoderm) 5% patch 1 patch 1 [...] Calhoun RN)2054 (Given - Provider: Favian Mckeon, RN) 0832 (Given - Provider: Kia Gallego, VALDO)2012 (Given - Provider: Favian Mckeon, RN) 08 (Given - Provider: Kia Gallego, VALDO) [...] (See Alternative - Provider: Kia Gallego RN) 08 (See Alternative - Provider: Kia Gallego RN) [...] 40 mEq, Oral, ONCE, 1 dose, On [facility] 05/20/23 at 0915, potassium chloride ER particle/crystal [...] 40 mEq, Oral, ONCE, 1 dose, On Wed05/22/23 at 0630, 20 mEq tablet may be [...] RN)2053 (Given - Provider: Favian Mckeon RN) 832 (Given - Provider: Kia Gallego, VALDO)2012 (Given - Provider: Favian Mckeon RN) 827 (Given - Provider: Kia Gallego, VALDO) sodium chloride 0.9 % (flush) (BD PosiFlush [...] 12.5 mg, Oral, DAILY, First dose on 05/22/23 at 0900, Until Discontinued, DO NOT SPLIT, CRUSH OR OPEN, Routine 08 (Given - Provider: Kia Gallego RN) ticagrelor (Brilinta) tablet 90 mg 90 mg, Oral, 2 TIMES DAILY, First dose on 05/12/23 at 2100, Until Discontinued, DO NOT DISCONTINUE WITHOUT CHECKING WITH INTERVENTIONAL CARDIOLOGY, Routine, After the initial loading dose of aspirin (usually 325 mg), use ticagrelor with a daily maintenance dose of aspirin 81 mg. Is this patient on 81 mg of aspirin? Yes 0836 (Given - Provider: Gabino Calhoun RN)2053 (Given - Provider: Favian Mckeon RN) 08 (Given - Provider: Kia Gallego RN)2012 (Given - Provider: Favian Mckeon RN) 0827 (Given - Provider: Kia Gallego RN) PRN Medication Order 05/20/2023 05/21/2023 05/22/2023 [...] Intravenous, EVERY 4 HOURS PRN, Starting on Tu05/18/23 at 1939, Until 05/22/23 at 1246, Pain, [...] post-op day 1 in the AM Give NV if unable to take PO, Routine Group [...] Routine documented in this encounter Care Teams Food And Beverage Associate Relationship Specialty Start Date End Date Magdalena Acosta MD [address] [place] [address] PCP - General Family Medicine 02/05/23 documented as of this encounter
--- OUTSIDE RECORDS SUMMARY | 2024-03-14 14:08 | XMS_ITS | Encounter Summary ---
[place] [address] Care Team Providers Care Torpedo Specialist Name Role Phone Magdalena Acosta MD Primary Care Provider [phone] Encounter Details Date Type Department Care Team [...] PM EDT Office Visit Dermatology at [address] [place] [address] Marek Bonilla MD [address] [facility], [place] [address] documented as of this encounter Visit Diagnoses Not on filedocumented in this encounter Care Teams Torpedo Specialist Relationship Specialty Start Date End Date Magdalena Acosta MD [address] [place] [address] PCP - General Family Medicine 02/05/23 documented as of this encounter
--- OUTSIDE RECORDS SUMMARY | 2024-03-14 14:08 | XMS_ITS | Encounter Summary ---
Author Organization [facility] [place] [address] Care Team Providers Care Sales Support Manager Name Role Phone Magdalena Acosta MD Primary Care Provider [phone] Encounter Details Date Type Department Care Team (Late st Contact Info) Description 03/29/2023 Notes Only Cardiology at [address] [id number] Vahid Plasencia, RN Social History Tobacco Use [...] 82/51; Mild AR; Moderate MR; Trace TR [facility] 11/09/2022: Non obstructive CAD STS 4.1 Plan:Schedule SDM clinic, diagnostics and frailty assessment. documented in this encounter Plan of Treatment Upcoming Encounters Date Type Department Care Team (Late st Contact Info) Description 03/01/2025 4:15 PM EDT Office Visit Dermatology at [place] [address] [facility] [place] [address] Marek Bonilla MD [address] [place] [address] documented as of this encounter Visit Diagnoses Not on filedocumented in this encounter Care Teams Sales Support Manager Relationship Specialty Start Date End Date Magdalena Acosta MD [address] [place] [address] PCP - General Family Medicine 02/05/23 documented as of this encounter
--- OUTSIDE RECORDS SUMMARY | 2024-03-14 14:08 | XMS_ITS | Encounter Summary ---
Author Organization [facility] [place] [address] Care Team Providers Care Weatherization Field Technician Name Role Phone Magdalena Acosta MD Primary Care Provider [phone] Reason for Visit * Auth/Cert (Routine) Specialty Diagnoses / Procedures Referred By Contac t Referred To Contact Diagnoses Symptomatic severe aortic stenosis with low ejection fraction NSTEMI, CHF Enrique Chua MD [facility] [place] [address] [facility] Referral ID Status Reason Start Date Expiration Date Visits Re quested Visits Authorized [id number] 1 1 Encounter Details Date Type Department Care Team (Late st Contact Info) Description 05/12/2023 2:50 PM EDT - 05/12/2023 3:50 PM [place] [address] Antelmo Sharma MD [facility] [place] [address] CARDIAC CATHETERIZATION Social History Tobacco Use Types [...] Patient Age: 67 y.o. Birthdate: 1955 Language: Finnish Race: White Ethnicity: Not nor Admit Date: 05/08/2023 Discharge Date: 05/22/2023 Attending Physician: Alirio Hudson MD Follow-up Recommendations for Providers: Please continue routine management of cardiovascular risk factors including blood pressure, lipids,glucose, etc. Please note any medication changes. Patient to follow up with PCP, Magdalena Acosta MD, or Primary Heavy Forging Machine Operator, Avis Mejia MD, in ~ 7-10 days. Patient to follow up with Auto Radiator Mechanic, Dr. Antelmo Sharma, in 2 weeks with an EKG, Echo, CBC, and CMP. Patient to follow up with Nephrology, their office to arrange. Lytf-Ldqmdq-st interval: After initial 30 day follow-up appointment , all TAVR patients will follow-up again in one year with an echo. 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 Secondary Diagnoses: Active Hospital Problems Diagnosis S/P TAVR (transcatheter aortic valve replacement) Cardiogenic shock Symptomatic severe aortic stenosis with low ejection fraction Mild coronary artery disease by [facility] 11/09/2022 Heart failure with reduced ejection [...] Tube Placement Right 05/18/2023 Laure Ricks PA [facility] INTERVENTIONL RAD PRG CATH PLMT LEFT HEART CATH & ARTS W/INJ & ANGIO IMG S&I N/A 11/09/2022 CORONARY ANGIOGRAPHY; W [facility],POSSIBLE PCI (WRVU 5.6) performed by Mario Alberto Escobedo MD at [facility] CATH LABS PRG COMBINED RIGHT & LEFT HEART CATH W/INJ L VENTRICULOGRAPHY, IMG S&I N/A 05/12/2023 COMBINED RIGHT & LEFT HEART CATH,INC INJ FOR L VENTRICULOGRAPHY (WRVU 5.99) performed by Antelmo Sharma MD at [facility] CATH LABS PRO AORTOPLAS FOR SUPRAVALV STEN N/A 09/21/2016 @AORTOPLASTY FOR SUPRAVALVULAR STENOSIS (WRVU 29.33) performed by Alirio Hudson MD at [facility] MAIN OR PRO REPLACE AORTIC VALVE (TAVR/FEDERICO)PERC FEMORAL ARTERY APPROACH 05/12/2023 @TRANSCATHETER AORTIC VALVE REPLACEMENT (TAVR), PERCUTANEOUS FEMORAL (WRVU 22.47) performed by Alirio Hudson MD at [facility] CATH LABS PRO REPLACEMENT PROSTHETIC AORTIC VALVE OPEN W CARDIOPULMONARY BYPASS HOMOGRF/STENT N/A 09/21/2016 @REPLACE AORTIC VALVE, OPEN, W\CPB, W\PROSTHETIC VALVE (WRVU 41.32) performed by Alirio Hudson MD at [facility] MAIN OR Prior To Admission [...] Major Procedures/Operations: 05/12/23: Successful right transfemoral TAVR Gxzno-sy-Nneef with a 23 mm Lai 3 THV. Left coronary protection with left main MINNA. Hospital Course: #Severe prosthetic s/p valve in valve TF TAVR #Low coronary heights s/p left main stent for coronary protection #Type 2 NSTEMI, present on arrival, resolved #Acute decompensated HFrEF #Cardiogenic shock #EVANS / Cardiorenal syndrome Purnima Thacker was admitted to [facility] on 05/08/2023 via the Cardiology Service with [...] TAVR and she was brought to the porcelain enamel laborer the following morning where Drs. Alirio [...] if you have questions. Please call your Auto Radiator Mechanic's office if you have any discharge or drainage from your procedural sites. Your Auto Radiator Mechanic, Dr. Antelmo Sharma and/or the Eyeletter may be reached at . Antibiotic prophylaxis: You will need to take antibiotics prior to many invasive tests and treatments, such as dental cleaning, which should be done every 6 months. Your primary care physician or your dentist can prescribe this medication. Please refer to the card with the [place] [employer] Guidelines for more information. You have been provided with a copy of this card. Please refer to the [place] Guidelines for more information. Good [...] friends, go to a movie, go to yazidism, etc. Heavy activities: No hunting, skiing, jogging, [...] should resume a low fat, low cholesterol, [place] Diet Driving: No restrictions. Shower/Bath: You may shower daily. No baths, soaking, or swimming for the first week. Wound care: Wash the sites daily with soap and rinse well, pat dry. Assess for any signs of infection such as increased redness, pain, warmth or drainage. Please call your halal butcher's office if you have any discharge or drainage from your procedural sites. If there is a lot of swelling, apply mamta wraps during the day and remove at bedtime. Elevate your legs when you are sitting. Home oxygen therapy: N/A Follow up appointments: Please schedule a follow-up appointment with your PCP, Magdalena Acosta MD, or Primary Heavy Forging Machine Operator in ~ 7-10 days. You have a follow-up appointment with your Auto Radiator Mechanic, Dr. Antelmo Sharma, in 2 weeks with an EKG, Echo, and labs prior to your appointment. You will need follow-up with Nephrology, their office will arrange. Ymxt-Rxzxgu-ac interval: After initial 30 day follow-up appointment , all TAVR patients will follow-up again in one year with an echo. Cardiac Rehabilitation: Purnima Thacker was seen today regarding participation in the outpatient Phase 2 Cardiac Rehabilitation at [facility]. The patient agrees to a referral to this program. The referral will be sent at discharge and the patient should be contacted by the Program within 1- 2 weeks from discharge. Future Appointments and Orders Future Appointments and Orders Future Appointments Provider Department Dept Phone 07/29/2023 11:00 AM Magdalena Peralta MD Rheumatology at [facility] Arrive at: [facility] [phone] 02/11/2024 2:00 PM Marek Bonilla MD Dermatology at [place] Arrive at: [facility] [address] [phone] Future Orders Complete By Expires Type and Screen Future Surgery, [facility] SAME DAY PROGRAM ONLY) [[id number] Custom] 05/11/2023 Process Instructions: This test is intended ONLY for patients with upcoming surgery for testing prior to the day of surgery obtained through the same day program (4V or SDP). For ALL OTHER PATIENTS, order a Type and Screen ([id number]) This order includes the physician order for an ABO Recheck if requested by the Blood Bank. Scheduling Instructions: Comments: Questions: Date of surgery: CBC (with Diff) [KPN318 Custom] 06/05/2023 12/05/2023 Process Instructions: INCLUDES: WBC, RBC, Hgb, Hct, Platelets, RBC Indices and Differential Scheduling Instructions: Comments: Questions: Comprehensive metabolic panel (non-fasting) [LAB17 Custom] 06/05/2023 08/20/2023 Process Instructions: INCLUDES: Calcium, T Protein, Albumin, AST, ALT, Alk Phos, T Bili, BUN, Creat, GFR, Glucose, Lytes. Scheduling Instructions: Comments: Questions: Echocardiogram Transthoracic [21975 CPT(R)] 06/05/2023 12/05/2023 Process Instructions: Scheduling Instructions: Questions: Where will study be performed?: [facility] Clinics Does the patient have Congenital Heart Disease?: Does patient require sedation?: GA rationale: EKG 12 Lead [62374 CPT(R)] 06/05/2023 12/05/2023 Process Instructions: Scheduling Instructions: Questions: Which location will this be performed?: [place] Is a rhythm strip needed?: No [facility] Devices [EQ161 Custom] As directed Process Instructions: Scheduling Instructions: Questions: Device Needed: WALKER (E0143) Patient Height (cm): 154.9 cm (5' 0.98) Patient Weight: 75.4 kg (166 lb 3.2 oz) Diagnosis: Unsteady gait when walking Referral to Cardiac Rehab [PAO665 Custom] As directed Process Instructions: If no progress note charted, please enter Clinical details in comments. Scheduling Instructions: Questions: My question or request is: s/p TAVR. Cardiac rehab at [facility]. Referral to Home Health [REF34 Custom] As directed Process Instructions: If no progress note charted, please enter Clinical details in comments. Scheduling Instructions: Comments: DOCUMENTATION FOR VNA SERVICES PATIENT'S LOCATION: Purnima Thacker [address] [place] [address] [phone] (home) Latex Fashions Designer's Name: Irineo and brother Raymond In discussion with the attending physician, it is certified that this patient is under his/her careand that MD, or an PRINT FINISHING WORKER, PROJECTION WELDING MACHINE OPERATOR, or PA who is working directly with him/her, had a pnpg-ku-eyze encounter that meets the physician cfop-gs-uogn encounter requirements with this patient on 05/22/2023. [...] for managing ADLs. HOME HEALTH CARE AGENCY: [facility]. [address] [facility] [address] PHONE: [phone] FAX: [phone] Start of care: Ideally 24-48 hours after [...] Magdalena Acosta MD [address] / [facility] [phone] All VNA agencies which cover the area of patient's residence have been reviewed, either verbally joao writing, and patient has chosen the home health care agency noted. Questions: Disciplines Requested: Physical Therapy Occupational Therapy Discharge References/Attachments None Arrangements for VNA/home care: As above. (delete if no VNA) Signed: EKATERINA NAVARRETE [facility] Section of Cardiac Surgery Date: 05/22/2023 CC: Magdalena Acosta MD [employer] Alberto maxwell MD [address] [place] [address] documented in this encounter Discharge Instructions * Patient Instructions* Vinod Juárez PA - 05/22/2023 9:32 AM EDT TAVR Discharge Instructions: Call your doctor if: You have a fever of greater than 101 degrees, shaking chills, if you develop redness or drainage from your procedure sites, or if you have questions. Please call your Auto Radiator Mechanic's office if you have any discharge or drainage from your procedural sites. Your Auto Radiator Mechanic, Dr. Antelmo Sharma and/or the Eyeletter may be reached at . Antibiotic prophylaxis: You will need to take antibiotics prior to many invasive tests and treatments, such as dental cleaning, which should be done every 6 months. Your primary care physician or your dentist can prescribe this medication. Please refer to the card with the [place] Guidelines for more information. You have been provided with a copy of this card. Please refer to the [place] Guidelines for more information. Good [...] friends, go to a movie, go to yazidism, etc. Heavy activities: No hunting, skiing, jogging, [...] should resume a low fat, low cholesterol, [employer] Diet Driving: No restrictions. Shower/Bath: You may shower daily. No baths, soaking, or swimming for the first week. Wound care: Wash the sites daily with soap and rinse well, pat dry. Assess for any signs of infection such as increased redness, pain, warmth or drainage. Please call your halal butcher's office if you have any discharge or drainage from your procedural sites. If there is a lot of swelling, apply mamta wraps during the day and remove at bedtime. Elevate your legs when you are sitting. Home oxygen therapy: N/A Follow up appointments: Please schedule a follow-up appointment with your PCP, Magdalena Acosta MD, or Primary Heavy Forging Machine Operator in ~ 7-10 days. You have a follow-up appointment with your Auto Radiator Mechanic, Dr. Antelmo Sharma, in 2 weeks with an EKG, Echo, and labs prior to your appointment. You will need follow-up with Nephrology, their office will arrange. Fnoy-Uieino-un interval: After initial 30 day follow-up appointment , all TAVR patients will follow-up again in one year with an echo. Cardiac Rehabilitation: Purnima Gallegol was seen today regarding participation in the outpatient Phase 2 Cardiac Rehabilitation at [facility]. The patient agrees to a [...] ins ( tef) Haven Ba, PT Pager: [phone] Physical Therapy Inpatient Rehabilitation Department * Nico [...] 0600 and on the weekends please page [phone]. * Jory Paniagua - 05/20/2023 3:52 PM [...] vomiting Last Bowel Movement: 05/20/23 Jory Paniagua Knitter Helper * Tong Mike, OT - 05/20/2023 3:16 [...] Tube Placement Right 05/18/2023 Laure Ricks PA [facility] INTERVENTIONL RAD PRG CATH PLMT LEFT HEART CATH & ARTS W/INJ & ANGIO IMG S&I N/A 11/09/2022 CORONARY ANGIOGRAPHY; W [facility],POSSIBLE PCI (WRVU 5.6) performed by Mario Alberto Escobedo MD at [facility] CATH LABS PRG COMBINED RIGHT & LEFT HEART CATH W/INJ L VENTRICULOGRAPHY, IMG S&I N/A 05/12/2023 COMBINED RIGHT & LEFT HEART CATH,INC INJ FOR L VENTRICULOGRAPHY (WRVU 5.99) performed by Antelmo Sharma MD at [facility] CATH LABS PRO AORTOPLAS FOR SUPRAVALV STEN N/A 09/21/2016 @AORTOPLASTY FOR SUPRAVALVULAR STENOSIS (WRVU 29.33) performed by Alirio Hudson MD at [facility] MAIN OR PRO REPLACE AORTIC VALVE (TAVR/FEDERICO)PERC FEMORAL ARTERY APPROACH 05/12/2023 @TRANSCATHETER AORTIC VALVE REPLACEMENT (TAVR), PERCUTANEOUS FEMORAL (WRVU 22.47) performed by Alirio Hudson MD at [facility] CATH LABS PRO REPLACEMENT PROSTHETIC AORTIC VALVE OPEN W CARDIOPULMONARY BYPASS HOMOGRF/STENT N/A 09/21/2016 @REPLACE AORTIC VALVE, OPEN, W\CPB, W\PROSTHETIC VALVE (WRVU 41.32) performed by Alirio Hudson MD at [facility] MAIN OR Social History: Patient lives alone. Home Setup: Pt lives on one level with tub shower and three steps to enter. DME: none used [employer]ER Baseline ADL/Mobility: Independent with ADLs and IADLs. [...] awareness: WFL Vision & Perception: corrective lenses mathematician Communication: WFL Range of motion, strength, coordination: [...] Discharge planning. Total Minutes, Occupational Therapy: 28 ([id number]) OT Evaluation Code Rationale: Diagnosis & Pertinent Co-Morbidities affecting Plan of Care: see PMHx Occupational Profile & Client History: Brief Expanded Extensive x Assessment of Occupational Performance: 1-3 performance deficits 3-5 performance deficits x 5 + performance deficits Clinical Decision Making: Low Moderate High x Clinical decision making of moderate complexity using standardized patient assessment instrument and measurable assessment of functional outcome. Pager: [phone] TONG MIKE OT 05/20/2023 Occupational Therapy Rehabilitation [...] 0600 and on the weekends please page [phone]. * Rylie Rodriguez MD - 05/19/2023 3:59 [...] and plan. Cynthia Blackburn MD Nephrology Pager: [phone] * Diana Espino - 05/19/2023 1:49 PM EDT Perinatal Specialist Encounter Note Patient Name: Purnima Thacker : [id number] MR#: [id number] Admit Date: 05/08/2023 9:14 AM Hospital Day [...] as stated. Total Minutes, Physical Therapy: 38 ([phone]) Henrik Navarrete PTA Pager: [phone] Physical Therapy Inpatient Rehabilitation Department * Nico [...] for rehab. #Severe prosthetic AV stenosis s/p Jaent TF TAVR #Cardiogenic shock #s/p LM stent [...] 0600 and on the weekends please page [phone]. * Laure Ricks PA - 05/19/2023 7:56 [...] Ricks PA-C Interventional Radiology IR Team Pager [phone] * Consuelo Espinoza RN - 05/18/2023 4:13 PM EDT ANGIO NURSING DATABASE Name: Purnima Thacker Date of : 1955 AGE: 67 y.o. Address: [address] [place] [address] (home) Mobile: No relevant phone numbers on [...] I35.0 Mild coronary artery disease by [facility] 11/09/2022 I25.10 Heart failure with reduced [...] and plan. Cynthia Blackburn MD Nephrology Pager: [phone] * Magdalena Puri, SUPERVISING PRODUCER - 05/18/2023 10:51 AM EDT Images from the original note were not included. [facility] [place] [address] [address] STRUCTURAL HEART DISEASE CONSULTATION NOTE PRIMARY CARE [...] stenosis. She is now status post TAVR Afewz-lp-Mvqms with a 23 mm Lai 3 THV 05/12/[address] Sharma. Preliminary findings: Successful right transfemoral TAVR Sppmq-qb-Vzlor with a 23 mm Lai 3 THV. [...] fraction Mild coronary artery disease by [facility] 11/09/2022 Heart failure with reduced ejection [...] 5 mg 5 mg Oral Q3H PRN aMra Serrano APRN 5 mg at 05/17/23 202 [...] tablet 81 mg 81 mg Oral Daily [place] SummitMara ernandez APRN 81 mg at 05/18/23 0826 ondansetron (pf) (Zofran) (2 mg/mL) injection 4 mg 4 mg Intravenous Q8H PRN [place] SummitMara ernandez APRN4 mg at 05/12/23 0736 pantoprazole EC (Protonix) tablet 40 mg 40 mg Oral Daily MaggieMara ernandez APRN 40 mg at 05/18/23 0826 Or pantoprazole (Protonix) injection 40 mg 40 mg Intravenous Daily [place] SummitMara ernandez APRN 40 mg at 05/12/23 1004 senna-docusate (Pericolace) 8.6-50 mg per tablet 2 tablet 2 tablet Oral Daily MaggieMara ernandez APRN 2 tablet at 05/16/232111 bisacodyL (Dulcolax) suppository 10 mg 10 mg Rectal Daily PRN MaggieMara ernandez APRN melatonin tablet 6 mg 6 mg Oral Nightly PRN [place] SummitMara ernandez APRN 6 mg at 05/17/232024 influenza vaccine adjuvanted (Adult 65 Yrs +) (FluAD Quad) (PF) IM injection 0.5 mL 0.5 mL Intramuscular Prior to discharge [place] SummitMara ernandez APRN FAMILY HISTORY: No family history [...] stenosis. She is now status post TAVR Ytbqb-my-Ibdjm with a 23 mm Lai 3 THV [...] Magdalena Puri APRN Structural Heart Team Pager [phone] Team Office Please see addendum by Dr. Sharma for final plan and recommendations Associated attestation - Antelmo Sharma MD - 05/19/2023 10:52 PM EDT I have reviewed Magdalena Puri APRN's above history and I agree with the details as written. The assessment and plan were formulated in discussion with me and I agree with them as documented. Antelmo Sharma MD Pager [phone] * Nico Palacios PA - 05/18/2023 8:13 [...] 0600 and on the weekends please page [phone]. * Loli Hernandez, PT - 05/17/2023 5:27 [...] plan as stated. Time IN / OUT: 0324-7701 Total Minutes, Physical Therapy: 54 Billing Code: te-sx2, te-f, angely HERNANDEZ PT Pager: [phone] Physical Therapy Inpatient Rehabilitation Department * Cynthia [...] Well controlled. Cynthia Blackburn MD Nephrology Pager: [phone] * Mara Serrano, SUPERVISING PRODUCER - 05/17/2023 8:26 AM EDT Cardiac Surgery [...] 0600 and on the weekends please page [phone]. * Guerda Del Valle C - 05/16/2023 10:44 AM EDT Nutrition Services Note - Low Nutrition Acuity Purnima Thacker is a 67 y.o. female Reason for intervention: hospital day 9 Nutrition Plan: Continue diet order Encourage good PO Lasix and Zofran noted Added special serve: open containers Monitor weight Patient scheduled for a hospital day 9 nutrition evaluation. Foreman Or Supervisor And Operator met with pt at bedside. Pt reports that her appetite and PO has much improved since admission. Denies nausea/vomiting or trouble chewing/swallowing. Foreman Or Supervisor And Operator provided snack list but pt not interested in adding snacks at this time. Her only concern was that she is worried that she will eat too much which will cause too much pressure in her stomach. Foreman Or Supervisor And Operator assured pt and suggested eating smaller [...] Last Bowel Movement: 05/10/23 Guerda Del Valle Knitter Helper * Vinod Juárez PA - 05/16/2023 10:19 [...] 0600 and on the weekends please page [phone]. * Michael Jeffers MD - 05/16/2023 8:11 AM EDT Images from the original note were not included. Hypertension-Nephrology Inpatient Follow-up Purnima Thacker [id number] 1955 ID: 67 y.o. old female seen [...] IRONSAT 12 (L) 05/16/2023 SFOLATE >20.0 07/03/2022 [id number] 07/03/2022 Lab Results Component Value Date [...] Dr. Ayoub. Please contact me at phone: [phone] or pager: [phone] with any questions. Michael Jeffers MD Nephrology [...] CXR before pushing for further diuresis. * Jmaes Agustin MD - 05/15/2023 2:40 PM EDT [...] -Nephrology consulted, labs and renal US ordered -[place] removed, ambulated around the unit -bilateral pleural [...] with attending surgeon on rounds this morning. aJmes Agustin MD 05/15/2023 Between the hours of 1800 - 0600 and on the weekends please page [phone]. * Hortencia Cody MD - 05/15/2023 2:07 [...] (bovine pericardial 25 mm), HFrEF, HTN, DLP, INCOLAS, mixed connective tissues disease, now s/p valve [...] not included. Hypertension-Nephrology Inpatient Follow-up Purnima Thacker [id number] 1955 ID: 67 y.o. old female seen [...] HGB 7.8 (L) 05/13/2023 SFOLATE >20.0 07/03/2022 [id number] 07/03/2022 Lab Results Component Value Date [...] Dr. Ayoub. Please contact me at phone: [phone] or pager: [phone] with any questions. Michael Jeffers MD Nephrology [...] last 720 hours. T/L/D Art ETT CVL [place] ASSESSMENT, MANAGEMENT, and DECISION MAKIN y.o. female [...] outlined inthis evaluation. HAVEN BA, PT Pager: [phone] Physical Therapy Inpatient Rehabilitation Department Time IN / OUT: 4322-9279 Total time: Total Minutes, Physical Therapy: 30 [...] 0600 and on the weekends please page [phone]. * Antelmo Sharma MD - 05/14/2023 7:56 AM EDT Images from the original note were not included. [facility] [place] [address] STRUCTURAL HEART DISEASE CONSULTATION NOTE PRIMARY CARE [...] stenosis. She is now status post TAVR Zkrxu-vg-Uvblx with a 23 mm Lai 3 THV 05/12/[address] Sharma. Preliminary findings: Successful right transfemoral TAVR Ayupe-ty-Frnup with a 23 mm Lai 3 THV. [...] perforation. Interval Events: - 05/12 Transferred to [facility] post- TAVR for pressor/inotropic support [...] fraction Mild coronary artery disease by [facility] 11/09/2022 Heart failure with reduced ejection [...] stenosis. She is now status post TAVR Adiiq-tt-Lafnq with a 23 mm Lai 3 THV 05/12/[address] Sharma. Janet TAVR case notable for coronary LAD protective MINNA. Status post TAVR, the patient was transferred to [facility] for pressor and inotropic support. Pressors weaned overnight 05/12. Cardiac indices by thermodilution remained >3 with continued Milrinone 0.125 mcg/kg/min prior to PAC removal. EKG todayNSR with stable SC/QRS intervals. Hemoglobin slowly down-trending (8.2-> 7.8-> 7.2). [...] Brody Kaplan APRN Structural Heart Team Pager [phone] Team Office Please see addendum by Dr. [...] exposure. Nephrology consultationtoday. Antelmo Sharma MD Pager [phone] * Antelmo Cardenas RN - 05/14/2023 5:18 AM EDT Pt AOx4, complaining of mild/moderate generalized pain (states her Meloxicam is effective at home) currently refusing prn oxycodone. NAEON, hemodynamically stable on Milrinone, Maps >65, ST in dtw124's down to NSR with frequent multifocal PVC's. [...] the original note were not included. [facility] [place] [address] [address] STRUCTURAL HEART DISEASE PROGRESS NOTE PRIMARY CARE [...] stenosis. She is now status post TAVR Sdpek-oh-Bmmuc with a 23 mm Lai 3 THV 05/12/[address] Sharma. Preliminary findings: Successful right transfemoral TAVR Lprre-eq-Pudqc with a 23 mm Lai 3 THV. [...] fraction Mild coronary artery disease by [facility] 11/09/2022 Heart failure with reduced ejection [...] (bovine pericardial 25 mm), HFrEF, HTN, DLP, NICOLSA, mixed connective tissues disease, and other chronic medical comorbidities, who has been admitted to the cardiovascular service with acute on chronic decompensated systolic heart failure in the context of bioprosthetic aortic valve stenosis. She is now status post TAVR Aafxw-re-Hatut with a 23 mm Lai 3 THV 05/12/[address] Sharma. Janet TAVR case notable for coronary LAD protective MINNA. Status post TAVR, the patient was transferred to [facility] for pressor and inotropic support. Pressors weaned overnight. Cardiac indices by thermodilution remain greater than 3 with continued Milrinone 0.125 mcg/kg/min. EKG today NSR with stable SC/QRS intervals. Hemoglobin 7.8 today from 8.5, likely [...] Brody Kaplan APRN Structural Heart Team Pager [phone] Team Office Please see addendum by Dr. [...] DAPT moving forward. Antelmo Sharma MD Pager [phone] * Bonita Miguel PA - 05/13/2023 8:30 AM EDT Cardiac Surgery Progress Note Purnima Thacker is a 67 y.o. 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 PMH of s/p tissue AVR (2017), mixed connective tissue disease HTN, HLD, NICOLAS, diverticulosis, rosacea, essential tremor, and depression. 24h Events: From porcelain enamel laborer for above procedure Extubated at ~1600 [...] soft b/l, no evidence of hematoma. Tubes/Lines/Drains: [place], RIJ, A-line, Art, PIV Assessment/Plan: 67 y.o. [...] 0600 and on the weekends please page [phone]. * Onelia Schwartz MD - 05/12/2023 1:44 [...] fraction Mild coronary artery disease by [facility] 11/09/2022 Heart failure with reduced ejection [...] FiO2 weaned to 40%. 1105: ABG 7.34/42/73/22 0479-0888: SBT performed and passed on these settings [...] PCP: Magdalena Acosta MD PCP phone number: [phone] Date of Admission: 05/08/2023 ( Hospital Day [...] 1447 PHART -- 7.34* 7.34* -- -- BVE0WVU -- 30* 30* -- -- PO2ART -- 72* 81* -- -- CQS2DSB -- 16.0* 15.7* -- -- LACTATEVEN 2.4* 2.7* 2.7* 4.8* 2.9* VBG (Venous Blood Gas) Recent Labs 05/12/23 0700 05/12/238 05/12/2310505/11/23193905/11/23 144 LACTATEVEN 2.4* 2.7* 2.7* 4.8* 2.9* Mixed Venous Sat Recent Labs 05/12/23 0508 05/12/23 0321 05/12/23 0114 05/12/23 0030 [id number] 30.7 32.7 37.3 25.1 Objective: Vitals Last [...] have questions please contact the health healthcare financial analyst that requested your imaging first. Electronically signed by: ALIX RUVALCABA MD, [facility] ([phone]), at 05/10/2023 1:[address] Cardiac for [...] have questions please contact the health healthcare financial analyst that requested your imaging first. Electronically signed by: Cullen Narayanan MD, [facility] ([phone]), at 05/11/2023 4:[address] Angiogram Abdomen [...] have questions please contact the health healthcare financial analyst that requested your imaging first. Chest One [...] have questions please contact the health healthcare financial analyst that requested your imaging first. Chest One [...] have questions please contact the health healthcare financial analyst that requested your imaging first. Assessment & [...] and inotrope. 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 * Antelmo Sharma MD - 05/11/2023 9:45 AM EDT Images from the original note were not included. [facility] [place] [address] [place] [address] STRUCTURAL HEART DISEASE CONSULTATION NOTE PRIMARY CARE [...] who had been referred for possible TAVR aezmt-ia-yghnx evaluation. Her primary symptoms are of dyspnea [...] otherwise negative. Ms. Thacker is originally from [facility]. 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 She states [...] fraction Mild coronary artery disease by [facility] 11/09/2022 Heart failure with reduced ejection [...] hour(s)) Lactate, whole blood, send to lab ([facility]) Result Value Ref Range Lactate WB 3.1 (H) 0.5 - 2.2 mmol/L Heparin (unfractionated) Level Result Value Ref Range Heparin UFH Level 0.46 IU/mL Lactate, whole blood, send to lab ([facility]) Result Value Ref Range [...] leads Confirmed by MD Harshil, Enrique Bell ([id number]) on 05/10/2023 8:11:46 AM Cardiac Cath 11/09/2022 [...] alert Dr. Hudson of her inpatient status, norris primary cardiac surgeon. Based on recent clinic visit, tentative plan had been for TAVR JANET isas ferrera given her chronological age. Cardiac cath 11/09/2022 notable for non-obstructive coronary disease. TAVR CTAs planned for today. Will review her case with cardiac surgery to determine best timing and therapies for her valve intervention. Addendum 05/11/2023 6:48 PM Due to decompensating HFrEF, she was transferred to [facility] this afternoon for further management. TAVR CT imaging support for adequate ileofemoral access. Given her acute deterioration today, will planfor RTF TAVR on 05/12/2023. Brody Kaplan APRN Structural Heart Disease Pager [phone] Please see addendum by Dr. Sharma for [...] signed and dated. Antelmo Sharma MD Pager [phone] * Harini Lance MD - 05/11/2023 6:06 AM EDT Images from the original note were not included. Cardiology Progress Note Patient info: Name: Purnima Thacker : 1955 PCP: Magdalena Acosta MD PCP phone number: [phone] Date of Admission: 05/08/2023 ( Hospital Day [...] have questions please contact the health healthcare financial analyst that requested your imaging first. 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, 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) Mild coronary artery disease by [facility] 11/09/2022 Hyperlipidemia, unspecified NICOLAS (obstructive sleep [...] PCP: Magdalena Acosta MD PCP phone number: [phone] Date of Admission: 05/08/2023 ( Hospital Day [...] 09/2016) Mild coronary artery disease by [facility] 11/09/2022 Hyperlipidemia, unspecified NICOLAS (obstructive sleep [...] PCP: Magdalena Acosta MD PCP phone number: [phone] Date of Admission: 05/08/2023 ( Hospital Day [...] Gas) No results found for: PHART, PO2ART, OXM6LCJ, EEO7AOT Microbiology: Microbiology Results (Last 30 days) No [...] PPx: Diet: Daily Healthy Menu Choices/Cardiac diet ([facility]-Diet) Lines: Peripheral IV [...] 09/2016) Mild coronary artery disease by [facility] 11/09/2022 Hyperlipidemia, unspecified NICOLAS (obstructive sleep [...] I35.0 Mild coronary artery disease by [facility] 11/09/2022 I25.10 Heart failure with reduced ejection fraction due to heart valve disease I50.20, I38 Cardiogenic shock R57.0 S/P TAVR (transcatheter aortic valve replacement) Z95.2 Past Medical History: Diagnosis Date Anemia Past Surgical History: Procedure Laterality Date PRG CATH PLSC LEFT HEART CATH & ARTS W/INJ & ANGIO IMG S&I N/A 11/09/2022 CORONARY ANGIOGRAPHY; W [facility],POSSIBLE PCI (WRVU 5.6) performed by Mario Alberto Escobedo MD at [facility] CATH LABS PRO AORTOPLAS FOR SUPRAVALV STEN N/A 09/21/2016 @AORTOPLASTY FOR SUPRAVALVULAR STENOSIS (WRVU 29.33) performed by Alirio Hudson MD at [facility] MAIN OR PRO REPLACEMENT PROSTHETIC AORTIC VALVE OPEN W CARDIOPULMONARY BYPASS HOMOGRF/STENT N/A 09/21/2016 @REPLACE AORTIC VALVE, OPEN, W\CPB, W\PROSTHETIC VALVE (WRVU 41.32) performed by Alirio Hudson MD at [facility] MAIN OR Social History and [...] I35.0 Mild coronary artery disease by [facility] 11/09/2022 I25.10 Heart failure with reduced ejection fraction due to heart valve disease I50.20, I38 Cardiogenic shock R57.0 S/P TAVR (transcatheter aortic valve replacement) Z95.2 Past Medical History: Diagnosis Date Anemia Past Surgical History: Procedure Laterality Date PRG CATH PLSC LEFT HEART CATH & ARTS W/INJ & ANGIO IMG S&I N/A 11/09/2022 CORONARY ANGIOGRAPHY; W [facility],POSSIBLE PCI (WRVU 5.6) performed by Mario Alberto Escobedo MD at [facility] CATH LABS PRO AORTOPLAS FOR SUPRAVALV STEN N/A 09/21/2016 @AORTOPLASTY FOR SUPRAVALVULAR STENOSIS (WRVU 29.33) performed by Alirio Hudson MD at [facility] MAIN OR PRO REPLACEMENT PROSTHETIC AORTIC VALVE OPEN W CARDIOPULMONARY BYPASS HOMOGRF/STENT N/A 09/21/2016 @REPLACE AORTIC VALVE, OPEN, W\CPB, W\PROSTHETIC VALVE (WRVU 41.32) performed by Alirio Hudson MD at [facility] MAIN OR Social History and [...] days, which prompted her to present to [facility]. She also endorses some intermittent retrosternal chest pain with exertion.She endorses some dizziness with exertion, but has not gotten faint or passed out. At [facility] she was noted to be afebrile, blood pressure 105/64, HR 120s, satting 95% on 2L NC. Labs from [facility] are below, of note she had [...] 89/59, which prompted the transfer to us. [facility] labs: CBC - Hgb 10.5 CMP - Cr 1.1 BNP 94359 HsTrop 1358 Lactate 1.6 D-dimer 1183 Interval History Patient was admitted to [facility] due to concern on low [...] Klaudia Reid MD Internal Medicine PGY-1 Pager [phone], M1-S1 Service Associated attestation - Juan Luis Gonzalez MD - 05/08/2023 10:00 PM EDT Cardiology Attending Addendum Active Hospital Problems Diagnosis Symptomatic severe aortic stenosis with low ejection fraction Heart failure with reduced ejection fraction due to heart valve disease Mild coronary artery disease by [facility] 11/09/2022 Hyperlipidemia, unspecified History of aortic [...] PCP: Magdalena Acosta MD PCP phone number: [phone] Date of Admission: 05/08/2023 ( Hospital Day 0 days ) Attending:Enrique Chua MD ID: Purnima Thacker is a 67 y.o. female w/ PMH of s/p bioprosthetic AVR in 2016 with recent concern for severe restenosis, HTN, HLD, mixed connective tissue disease, who presents in transfer from [facility] with worsening BONILLA and weight gain [...] four days, which promptedher to present to [facility]. She also endorses some intermittent retrosternal chest pain with exertion. She endorses some dizziness with exertion, but has not gotten faint or passed out. At [facility] she was noted to be afebrile, blood pressure 105/64, HR 120s, satting 95% on 2L NC. Labs from [facility] are below, of note she had [...] 89/59, which prompted the transfer to us. [facility] labs: CBC - Hgb 10.5 CMP - Cr 1.1 BNP 39037 HsTrop 1358 Lactate 1.6 D-dimer 1183 Vasoactive [...] tissue disease, who [facility] BONILLA and weight gain concerning [...] #Routine Diet: Daily Healthy Menu Choices/Cardiac diet ([facility]-Diet) DVT Prophylaxis: heparin [...] to the planned procedure. Hand Hygiene: The facility rehab director did perform hand hygiene prior to arterial [...] Successful arterial line placement. Crispin Timmons MD Eyeletter Associated attestation - Onelia Schwartz MD - [...] (flow was non-pulsatile) and appearance of blood. [place]-Marily catheter was placed and locked at 55 [...] information for follow-up [facility], [facility] [address] [place] [address] Cardiac Rehab, [place] [address] [address] [facility], [facility] [address] [place] [address] Transportation: family or friend will provide *Brother [...] Type: *No Product type* / Secondary Insurance: [employer] [place] Prescription Coverage: Yes This plan was formulated with input from patient, family (please identify family/friend involved ifapplicable) and team. All are in agreement with plan. Aliza Martino MSN-Ed, RN ACM caregivers non medical Office of Care Management Pager #[phone] * Plan of Care - Favian Mckeon [...] - 05/21/2023 4:46 PM [facility]: [facility] referral OFFICE OF CARE MANAGEMENT [...] Type: *No Product type* / Secondary Insurance: [employer] [facility] [place] Last Physical Therapy Recommendation: (Home with [...] geographic area. They have requested referrals to: [facility] [address] [place] [address] [facility] @ [place], [place] Note routed to a Sergeant At Arms who will communicate referrals to facilities and provide any required information. Transportation: family or friend will provide *Brother Raymond on Tuesday 05/22 at 1000 Barriers to discharge: Does not have home 22/02 assist available until tomorrow Tuesday 05/22 Plan going forward: Discharge home into the 22/02 home care of brother Raymond with [facility] and [facility] PT/OT services on Tuesday 05/22 [...] Attending: All Staff: Staff Role Juanita Almaguer Computer Video Game Designer Laure Ricks PA Physician Management Supervisor Magdalena Rodriguez RN Radiology Nurse Consuelo Espinoza associate broker Nurse Post-operative diagnosis/Indication: Right pleural effusion Name [...] Type: *No Product type* / Secondary Insurance: [employer] [facility] [place] Last Physical Therapy Recommendation: penitentiary facility, swing bed rehabilitation facility with to be determined Last Occupational Therapy Recommendation: with Plan for discharge is: [facility] Facility / Swing Outpatient Agency/Support Group Needs: None Agency Referrals: Based on discussions with the multi-disciplinary healthcare team, the patient would benefit from SNF / Swing level of care at discharge. I have met with the patient to: discuss discharge planning needs. provide the [facility], Office of Care Management letter from the Public Relations Representative pertaining to rehab referrals. provide a letter describing our affiliations within the [facility] and educate about their right to choose where referrals are sent. provide the CMS Star Quality Rating handout. review the different levels of rehab including SNF, swing, and acute. provide a list of facilities within their preferred geographic area. request that they provide at least three choices for referral. They have requested referrals to: [facility] [address] [place] [address] [facility] ([facility] [address] [place] [address] (Accepts pts only after exhausting all other local SNF options) [facility] (Swing) ([facility]) [address] [place] [address] PHONE: [phone] FAX: [phone] [facility] ([facility]) [facility]) [address] [place] [address] PHONE: [phone] FAX: [phone] Note routed to a Sergeant At Arms who will communicate referrals to facilities and [...] Crenshaw RN - 05/17/2023 10:25 AM EDT [facility] CARDIAC REHABILITATION Purnima Thacker was seen today regarding participation in the outpatient Phase 2 Cardiac Rehabilitation at [facility]. The patient agrees to a [...] in her course. She ultimately underwent a vizip-pc-unpwn procedure on and tolerated it well (see operative details). [facility] and sedated on some pressors [...] 1423 05/12/23 1105 PHART 7.39 7.37 7.34* SYP8TPR 33* 36 42 PO2ART 101 102 73* HWW4EEQ 19.5* 20.4 22.1 LACTATEVEN 1.5 1.8 2.8* SFJ5KXZ 40 40 40 PFRATIOART2 252 255 182 VBG (Venous Blood Gas) Recent Labs 05/12/23 1557 05/12/23 1423 05/12/23 1105 LACTATEVEN 1.5 1.8 2.8* Mixed Venous Sat Recent Labs 05/12/23 1425 05/12/23 0508 05/12/23 0321 [id number] 59.9 30.7 32.7 LFT's: Recent Labs 05/14/23 0110 05/13/23 0115 05/12/23 0600 BILITOT 0.4 0.5 0.9 BILIDIR -- 0.3 -- ALBUMIN 3.6 3.0* 3.5 ALKPHOS 86 85 100 ALT 437* 903* 1,174* AST 319* 792* 1,435* No results found for: UPROTCREAT No results found for: TPROTEINPEP, ALBELECT No results found for: MICROALBUR, [id number] No results found for: HA1C Lab Results Component Value Date CALCIUM 8.5 05/14/2023 PHOS 4.7 (H) 05/08/2023 No results found for: 25OHVITD MICROBIOLOGY: ProcedureComponentValueUnitsDate/TimeUrine culture [[id number]]Collected: 05/11/231921Lab Status: Final resultSpecimen: Clean Catch UrineUpdated: [...] consulted for assessment if this patient needs CAR GROOMER. Atthis time, we can likely hold off on CAR GROOMER. Her volume status appears sufficient and her metabolic kanwal angements with mild acidosis is not too profound. Patient does not have significant uremic symptoms. We can hold off for today, but the patient is a high risk candidate for needing CAR GROOMER in future daysespecially if her Cr curve trends the direction it is for the next several days. S/p Qqqfl-jl-Zpesp TF TAVR: Management per cardiology. On milrinone gtt. PLAN: - Please obtain following diagnostics: renal US, urinalysis, urine prot/Cr ratio, urine albumin/Cr ratio, CK, uric acid, serum osmol, daily VBGs - No acute indications for CAR GROOMER/dialysis. We will keep close eye on Cr trend, volume status, and metabolics to ensure patient still does not need CAR GROOMER as she ensues intrinsic renal recovery - [...] M.H.Katherine., M.A. PGY-V Nephrology-Hypertension Fellow Page # [phone] [facility] [address] 2nd floor, [employer] [address] [place] [address] * Care Management - Mario Alberto Olmos [...] Type: *No Product type* / Secondary Insurance: [facility] Plan for discharge is: Home w/o Services [...] for a TAVR at 730. Returned to [facility] at 0945. Was intubated in the porcelain enamel laborer due to agitation. Maintained bedrest for [...] OUTCOME EVALUATION: * OR Attestation - Alirio uHdson MD - 05/12/2023 2:09 PM EDT Attestation: Case Date: 05/12/2023 I performed this procedure without the involvement of a resident. Alirio Hudson MD 05/16/2023 * Brief Op Note - Alirio Hudson MD - 05/12/2023 2:07 PM EDT Brief Operative Note Patient Name: Purnima Thacker : [id number] MR#: [id number] Case Date: 05/12/2023 Surgeon: Surgeon(s) and Role: [...] procedure Note: Patient Name: Purnima Thacker : [id number] MR#: [id number] Case Date: 05/12/2023 Operators Surgeon: Surgeon(s) and [...] main with 4.0 x 30 mm Resolute Bleckley Drug Eluting Stent Perclose x1 + Angio-seal 8 Fr x1, RFA Manual pressure, LFA Manual pressure, LFV Endotracheal intubation (performed by cardiac anesthesia) Preliminary findings: Successful right transfemoral TAVR Uslmo-mx-Yzvfm with a 23 mm Lai 3 THV. [...] MD, M.Sc. Structural Heart Disease Fellow Pager :[phone] Antelmo Sharma MD Pager [phone] * Op Note - Alirio Hudson MD - 05/12/2023 7:37 AM EDT Preop Diagnosis: Severe aortic stenosis, symptomatic. Postop Diagnosis: Same. Procedure: Transfemoral TAVR procedure with 23mm valve. Surgeon: Alirio Hudson M.D. Heavy Forging Machine Operator: Danny CULP Procedure: The patient was taken to the porcelain enamel laborer. The patient had monitored anesthesia care. 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 [facility] [place] [address] [place] [address] STRUCTURAL HEART DISEASE CONSULTATION NOTE PRIMARY CARE [...] who had been referred for possible TAVR beqgg-cp-rnwdn evaluation. Her primary symptoms are of dyspnea [...] otherwise negative. Ms. Thacker is originally from [facility]. 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 PROBLEM LIST: Patient Active Problem List Diagnosis Symptomatic severe aortic stenosis with low ejection fraction Mild coronary artery disease by [facility] 11/09/2022 Heart failure with reduced ejection [...] hour(s)) Lactate, whole blood, send to lab ([facility]) Result Value Ref Range [...] leads Confirmed by MD Harshil, Enrique Bell ([id number]) on 05/10/2023 8:11:46 AM Assessment and Plan: [...] alert Dr. Hudson of her inpatient status, norris primary cardiac surgeon. Based on recent clinic [...] Antelmo Sharma MD Structural Heart Disease Pager [phone] * Plan of Care - Sarahi Nice RN - 05/10/2023 3:55 AM EDTSumavis: RN Note and Care Plan Sarahi Nice RN assumed care of pt at time of their arrival to room 362 from [facility]. Pt voices shortness of breath [...] VTE (Venous Thromboembolism) Risk Flowsheets (Taken 05/09/2023 7616) VTE Prevention/Management: anticoagulant therapy Intervention: Prevent Infection [...] listening utilized Taken 05/08/20231999 by Alivia Kauffman scowman/Support System Care: self-care encouraged support provided Problem: [...] Transfer from another hospital Location: admitted from [facility] Reason for Hospitalization: Critical aortic stenosis, causing symptoms Past medical History: Past Medical History: Diagnosis Date Anemia Hospitalizations Within the Past 30 Days: no previous admission in last 30 days Current Decision-Making Capacity: Self If AD's have not been completed the following surrogate would be surrogate decision maker per [place] surrogate decision making law. (Only good for 180 days) Any patient receiving care in [place] must abide by [place] law. The hierarchy for surrogate decision making [...] (i) The agent with financial power of mergers and acquisitions attorney or a conservator appointed in accordance [...] DME: none Home Address confirmed as: [address] [place] [address] Social & Family Supports: All names listed [...] Type: *No Product type* / Secondary Insurance: [facility] ONLY if patient has Medicare A&B - Does this patient have secondary insurance?: Yes ; Prescription Coverage: Yes Preferred Pharmacy: updated to [facility] in [facility] [place] Status: Patient is a : No Primary Care Provider confirmed: Magdalena Acosta MD [phone] Patient/Caregiver Goals of Treatment: Potential Needs for [...] transition of care planning. Alie Bradshaw RN, Pager-[phone] * Plan of Care - Emily Lucero RN - 05/08/2023 2:54 PM EDT OUTCOME EVALUATION NOTE: OUTCOME SUMMARY: Pt arrived from [facility]. A&O, no c/o pain or SOB. [...] 4:15 PM EDT Office Visit Dermatology at [place] [address] [facility] [place] [id number] Marek Bonilla MD [address] [facility] [address] [place] [address] Scheduled Referrals Name Type Priority Associated Diagnoses [...] Heart Cath W/Inj L Ventriculography, Img S&I ([id number]) 05/12/2023 7:37 AM EDT Aortic valve stenosis, [...] DOPP COLOR DOPP (07/08/2023 12:15 PM EST) [facility] EF 20 HEARTLAB SYSTEM Anatomical Region Laterality Modality Cardiac Other 07/08/2023 10:3 1 AM EST Narrative 07/08/2023 12:26 PM EST [address] [place] [id number] ? Echocardiogram Report Name: PURNIMA THACKER ?Study Date: 07/08/2023 10:31 AMBP: 118/60 mmHg ? Patient Location: : 1955 ? Height: 155 cm ? Account: [id number] Age: 67 yrs ? Weight: 74 kg [...] no significant change (post-procedure). Procedure Limited - 42928. Doppler - 11288. Color Doppler - 54510. Satisfactory quality. This study is limited because [...] Aneurysmal ?15-16 ?? diffuse Procedure Note Lee iKncaid MD - 07/08/2023 [address] [place] [address] Echocardiogram Report Name: KIRSTIE PURNIMA M Study Date: 310:31 AMBP: 118/60 mmHg Patient Location: : 1955 Height: 155 cm Account: [id number] Age: 67 yrs Weight: 74 kg Gender: [...] is nosignificant change (post-procedure). Procedure Limited - 45792. Doppler - 55926. Color Doppler - 22214. Satisfactoryquality. This study is limited because of [...] Dyskinetic 3-5moderate 5 - 6-14large Aneurysmal 15-16diffuse Alriio Hudson MD ECHO ORDERABLES * (ABNORMAL) Comprehensive metabolic panel (non-fasting) (07/08/2023 11:56 AM EST) Glucose 93 65 - 199 mg/dL [facility] Comment:Diabetes: >=200 mg/d L plus symptoms Blood Urea Nitrogen 19(H) 8 - 18 mg/dL [facility] Creatinine 0.81 0.70 - 1.20 mg/dL [facility] Sodium 142 135 - 145 mmol/L [facility] Potassium 3.8 3.5 - 5.0 mmol/L [facility] Comment: Please note: ??Patients with WBC >100,000 may have falsely elevated Potassium levels. ??For accurate Potassium quantification in these patients send serum separator tube (gold top) for subsequent determinations. ??Contact the Clinical Chemistry Laboratory if there are any questions. Chloride 104 98 - 107 mmol/L [facility] Carbon Dioxide 26 22 - 31 mmol/L [facility] Anion Gap 12 5 - 15 mmol/L [facility] Calcium 10.2 8.5 - 10.5 mg/dL [facility] Protein, Total 7.4 6.1 - 8.0 g/dL [facility] Albumin 4.1 3.2 - 5.2 g/dL [facility] Aspartate Aminotransferase 24 0 - 30 unit/L [facility] Alanine Aminotransferase 12 0 - 30 unit/L [facility] Alkaline Phosphatase 93 35 - 105 unit/L [facility] Bilirubin, Total 0.3 0.2 - 1.3 mg/dL [facility] Est Glomerular Filtration Rate 80 >=60 mL/min/1. 73 m?? [facility] Comment: This patient's [...] Lab Alirio Hudson MD CHEMISTRY ORDERABLE S [facility] [place] [address] * (ABNORMAL) Basic Metabolic Panel (non-fasting) (05/22/2023 3:57 AM EDT) Pathologist [facility] Glucose 88 65 - 199 mg/dL [facility] Comment:Diabetes: >=200 mg/d L plus symptoms Blood Urea Nitrogen 21(H) 8 - 18 mg/dL [facility] Creatinine 0.69(L) 0.70 - 1.20 mg/dL [facility] Sodium 136 135 - 145 mmol/L [facility] Potassium 3.6 3.5 - 5.0 mmol/L [facility] Comment: Please note: ??Patients with WBC >100,000 may have falsely elevated Potassium levels. ??For accurate Potassium quantification in these patients send serum separator tube (gold top) for subsequent determinations. ??Contact the Clinical Chemistry Laboratory if there are any questions. Chloride 102 98 - 107 mmol/L [facility] Carbon Dioxide 23 22 - 31 mmol/L [facility] Anion Gap 11 5 - 15 mmol/L [facility] Calcium 8.6 8.5 - 10.5 mg/dL [facility] Est Glomerular Filtration Rate 95 >=60 mL/min/1. 73 m?? [facility] Comment: This patient's [...] Agency Comment Spec In Lab Mara Serrano SUPERVISING PRODUCER CHEMISTRY ORDERABL ES [facility] [place] [address] * (ABNORMAL) Basic Metabolic Panel (non-fasting) (05/21/2023 5:06 AM EDT) Glucose 87 65 - 199 mg/dL [facility] Comment:Diabetes: >=200 mg/d L plus symptoms Blood Urea Nitrogen 25(H) 8 - 18 mg/dL [facility] Creatinine 0.84 0.70 - 1.20 mg/dL [facility] Sodium 136 135 - 145 mmol/L [facility] Potassium 3.6 3.5 - 5.0 mmol/L [facility] Comment: Please note: ??Patients with WBC >100,000 may have falsely elevated Potassium levels. ??For accurate Potassium quantification in these patients send serum separator tube (gold top) for subsequent determinations. ??Contact the Clinical Chemistry Laboratory if there are any questions. Chloride 102 98 - 107 mmol/L [facility] Carbon Dioxide 26 22 - 31 mmol/L [facility] Anion Gap 8 5 - 15 mmol/L [facility] Calcium 8.9 8.5 - 10.5 mg/dL [facility] Est Glomerular Filtration Rate 76 >=60 mL/min/1. 73 m?? [facility] Comment: This patient's [...] Narrative Resulting Agency Comment Spec In Lab [facility] SUPERVISING PRODUCER CHEMISTRY ORDERABL ES Performing Organization Address [facility] Co de Phone Number [facility] [place] [address] * Lavender Tube HOLD (05/20/2023 2:52 AM EDT) Lavender Hold Sample in lab. [facility] Blood Venous Draw / Unknown 05/20/2023 2:52 AM EDT 05/20/2023 3:04 AM EDT Mara [place] SUPERVISING PRODUCER HEMATOLOGY ORDERAB LES Performing Organization Address [facility] de Phone Number [facility] [place] [address] * (ABNORMAL) Basic Metabolic Panel (non-fasting) (05/20/2023 2:52 AM EDT) Glucose 152 65 - 199 mg/dL [facility] Comment:Diabetes: >=200 mg/d L plus symptoms Blood Urea Nitrogen 33(H) 8 - 18 mg/dL [facility] Creatinine 0.82 0.70 - 1.20 mg/dL [facility] Sodium 137 135 - 145 mmol/L [facility] Potassium 3.7 3.5 - 5.0 mmol/L [facility] Comment: Please note: ??Patients with WBC >100,000 may have falsely elevated Potassium levels. ??For accurate Potassium quantification in these patients send serum separator tube (gold top) for subsequent determinations. ??Contact the Clinical Chemistry Laboratory if there are any questions. Chloride 99 98 - 107 mmol/L [facility] Carbon Dioxide 22 22 - 31 mmol/L [facility] Anion Gap 16(H) 5 - 15 mmol/L [facility] Calcium 9.0 8.5 - 10.5 mg/dL [facility] Est Glomerular Filtration Rate 78 >=60 mL/min/1. 73 m?? [facility] Comment: This patient's [...] Agency Comment Spec In Lab Mara [place] SUPERVISING PRODUCER CHEMISTRY ORDERABL ES Performing Organization Address [facility] Co de Phone Number [facility] [place] [address] * (ABNORMAL) Potassium (05/20/2023 2:52 AM EDT) [facility] Signature Potassium 3.4(L) 3.5 - 5.0 mmol/L [facility] Comment: Please note: ??Patients with WBC >100,000 may have falsely elevated Potassium levels. ??For accurate Potassium quantification in these patients send serum separator tube (gold top) for subsequent determinations. ??Contact the Clinical Chemistry Laboratory if there are any questions. Blood 05/20/2023 2:52 AM EDT 05/20/2023 3:03 AM EDT Narrative Resulting Agency Comment Spec In Lab Mara Maggie SUPERVISING PRODUCER CHEMISTRY ORDERABL ES Performing Organization Address City/[facility] Co de Phone Number [facility] [place] [address] * XR Chest PA & Lateral (Generic) [...] have questions please contact the health healthcare financial analyst that requested your imaging first. ? Electronically signed by: Chyna Johnson MD, [facility] ??([phone]), at 05/19/2023 2:19 PM Narrative 05/19/2023 2:19 [...] who have questions please contactthe health healthcare financial analyst that requested your imaging first. Alirio Hudson MD IMG DX ORDERABLES * (ABNORMAL) Basic Metabolic Panel (non-fasting) (05/19/2023 5:49 AM EDT) Glucose 93 65 - 199 mg/dL [facility] Comment:Diabetes: >=200 mg/d L plus symptoms Blood Urea Nitrogen 45(H) 8 - 18 mg/dL [facility] Creatinine 1.02 0.70 - 1.20 mg/dL [facility] Sodium 138 135 - 145 mmol/L [facility] Potassium 3.9 3.5 - 5.0 mmol/L [facility] Comment: Please note: ??Patients with WBC >100,000 may have falsely elevated Potassium levels. ??For accurate Potassium quantification in these patients send serum separator tube (gold top) for subsequent determinations. ??Contact the Clinical Chemistry Laboratory if there are any questions. Chloride 102 98 - 107 mmol/L [facility] Carbon Dioxide 26 22 - 31 mmol/L [facility] Anion Gap 10 5 - 15 mmol/L [facility] Calcium 9.7 8.5 - 10.5 mg/dL [facility] Est Glomerular Filtration Rate 60 >=60 mL/min/1. 73 m?? [facility] Comment: This patient's [...] Agency Comment Spec In Lab Mara Serrano SUPERVISING PRODUCER CHEMISTRY ORDERABL ES [facility] [place] [address] * IR Chest Tube Placement Right (05/18/2023 [...] EDT) Glucose 95 65 - 199 mg/dL [facility] Comment:Diabetes: >=200 mg/d L plus symptoms Blood Urea Nitrogen 71(H) 8 - 18 mg/dL [facility] Comment:result rechecked-[facility] Creatinine 1.64(H) 0.70 - 1.20 mg/dL [facility] Comment:result rechecked-[facility] Sodium 137 135 - 145 mmol/L [facility] Potassium 3.7 3.5 - 5.0 mmol/L [facility] Comment: Please note: ??Patients with WBC >100,000 may have falsely elevated Potassium levels. ??For accurate Potassium quantification in these patients send serum separator tube (gold top) for subsequent determinations. ??Contact the Clinical Chemistry Laboratory if there are any questions. Chloride 100 98 - 107 mmol/L [facility] Carbon Dioxide 24 22 - 31 mmol/L [facility] Anion Gap 13 5 - 15 mmol/L [facility] Calcium 9.7 8.5 - 10.5 mg/dL [facility] Est Glomerular Filtration Rate 34(L) >=60 mL/min/1. 73 m?? [facility] Comment: This patient's [...] Agency Comment Spec In Lab Mara Serrano SUPERVISING PRODUCER CHEMISTRY ORDERABL ES [facility] [place] [address] * XR Chest PA & Lateral (Generic) [...] have questions please contact the health healthcare financial analyst that requested your imaging first. ? Narrative [...] who have questions please contactthe health healthcare financial analyst that requested your imaging first. Alirio Hudson MD IMG DX ORDERABLES * (ABNORMAL) Comprehensive metabolic panel (non-fasting) (05/17/2023 4:35 AM EDT) Glucose 89 65 - 199 mg/dL [facility] Comment:Diabetes: >=200 mg/d L plus symptoms Blood Urea Nitrogen 97(H) 8 - 18 mg/dL [facility] Creatinine 2.97(H) 0.70 - 1.20 mg/dL [facility] Comment:result rechecked-JSJc Sodium 135 135 - 145 mmol/L [facility] Potassium 4.1 3.5 - 5.0 mmol/L [facility] Comment: Please note: ??Patients with WBC >100,000 may have falsely elevated Potassium levels. ??For accurate Potassium quantification in these patients send serum separator tube (gold top) for subsequent determinations. ??Contact the Clinical Chemistry Laboratory if there are any questions. Chloride 97(L) 98 - 107 mmol/L [facility] Carbon Dioxide 22 22 - 31 mmol/L [facility] Anion Gap 16(H) 5 - 15 mmol/L [facility] Calcium 9.6 8.5 - 10.5 mg/dL [facility] Protein, Total 6.5 6.1 - 8.0 g/dL [facility] Albumin 3.7 3.2 - 5.2 g/dL [facility] Aspartate Aminotransferase 58(H) 0 - 30 unit/L [facility] Alanine Aminotransferase 66(H) 0 - 30 unit/L [facility] Alkaline Phosphatase 86 35 - 105 unit/L [facility] Bilirubin, Total 0.6 0.2 - 1.3 mg/dL [facility] Est Glomerular Filtration Rate 17(L) >=60 mL/min/1. 73 m?? [facility] Comment: This patient's [...] Lab Alirio Hudson MD CHEMISTRY ORDERABLE S [facility] [place] [address] * Potassium (05/16/2023 11:15 PM EDT) Potassium 3.7 3.5 - 5.0 mmol/L [facility] Comment: Please note: [...] MD CHEMISTRY ORDERABLE S Performing Organization Address [facility] Co de Phone Number [facility] [place] [address] * Magnesium (05/16/2023 5:22 PM EDT) Magnesium 0.96 0.69 - 1.07 mmol/L [facility] Blood 05/16/2023 5:22 PM EDT 05/16/2023 5:27 PM EDT Narrative Resulting Agency Comment Spec In Lab Alirio Hudson MD CHEMISTRY ORDERABLE S Performing Organization Address [facility] Co de Phone Number [facility] [place] [address] * (ABNORMAL) Basic Metabolic Panel (non-fasting) (05/16/2023 5:22 PM EDT) Glucose 106 65 - 199 mg/dL [facility] Comment:Diabetes: >=200 mg/d L plus symptoms Blood Urea Nitrogen 103(H) 8 - 18 mg/dL [facility] Creatinine 3.91(H) 0.70 - 1.20 mg/dL [facility] Comment:result rechecked-imm Sodium 132(L) 135 - 145 mmol/L [facility] Potassium 3.6 3.5 - 5.0 mmol/L [facility] Comment: Please note: ??Patients with WBC >100,000 may have falsely elevated Potassium levels. ??For accurate Potassium quantification in these patients send serum separator tube (gold top) for subsequent determinations. ??Contact the Clinical Chemistry Laboratory if there are any questions. Chloride 92(L) 98 - 107 mmol/L [facility] Carbon Dioxide 22 22 - 31 mmol/L [facility] Anion Gap 18(H) 5 - 15 mmol/L [facility] Calcium 9.7 8.5 - 10.5 mg/dL [facility] Est Glomerular Filtration Rate 12(L) >=60 mL/min/1. 73 m?? [facility] Comment: This patient's [...] Lab Alirio Hudson MD CHEMISTRY ORDERABLE S [facility] [place] [address] * (ABNORMAL) Potassium (05/16/2023 11:43 AM EDT) [facility] Signature Potassium 3.3(L) 3.5 - 5.0 mmol/L [facility] Comment: Please note: [...] Lab Alirio Hudson MD CHEMISTRY ORDERABLE S [facility] [place] [address] * (ABNORMAL) Ferritin (05/16/2023 4:41 AM EDT) Ferritin 1,813(H) 30 - 400 ng/mL [facility] Comment: Pediatric reference ranges not verified at [facility], interpret with caution. Reference ranges for females greater than 50 years of age approach values for men, i.e., 30-400 ng/mL. Blood 05/16/2023 4:41 AM EDT 05/16/2023 4:54 AM EDT Narrative Resulting Agency Comment Spec In Lab Kristopher Ayoub MD CHEMISTRY ORDERABLES [facility] [place] [address] * (ABNORMAL) PTH (05/16/2023 4:41 AM EDT) [facility] Parathyroid Hormone 120(H) 15 - 65 pg/mL [facility] Blood 05/16/2023 4:41 AM EDT 05/16/2023 4:54 AM EDT Narrative Resulting Agency Comment Spec In Lab Kristopher Ayoub MD CHEMISTRY ORDERABLES Performing Organization Address City/[facility]/ZIP Co de Phone Number [facility] [place] [address] * Vitamin D, 25-Hydroxy (05/16/2023 4:41 AM EDT) Pathologist [facility] Vitamin D Total 25 OH 33 21 - 100 ng/mL [facility] Vit D Interp Sufficient [facility] Blood 05/16/2023 4:41 AM EDT 05/16/2023 4:54 AM EDT Narrative Resulting Agency Comment Spec In Lab Kristopher Ayoub MD CHEMISTRY ORDERABLES [facility] [place] [address] * (ABNORMAL) Blood Gas Venous ([facility]) (05/16/2023 4:22 AM EDT) Pathologist [facility] pH, Venous 7.41 7.32 - 7.42 [facility] PCO2, Venous 32(L) 41 - 51 mmHg [facility] PO2, Venous 73(H) 25 - 40 mmHg [facility] Bicarbonate, Venous 19.6 mmol/L [facility] Base Excess, Venous -5.1 mmol/L [facility] Hgb Blood Gas 9.7(L) 11.7 - 15.5 g/dL [facility] Oxyhemoglobin, Venous 92.8 % [facility] Carboxyhemoglob in, Venous 0.1 % [facility] Comment: Nonsmokers: 0.5-1.5% COHB Smokers: Variable, but usually less than 10% Toxic: 20-30% COHB Lethal: Greater than 60% COHB Methemoglobin, Venous 0.3 <=1.5 % [facility] Na Whole Blood 130(L) 135 - 145 mmol/L [facility] K Whole Blood 3.7 3.5 - 5.0 mmol/L [facility] Comment: Please note: Patients with WBC >100,000 may have falsely elevated Potassium levels. Contact the Clinical Chemistry Laboratory if there are any questions. ICa Whole Blood 1.15 1.15 - 1.33 mmol/L [facility] Comment: Note: ??Total bilirubin higher than 20 mg/dL may lead to falsely low ionized calcium. CL Whole Blood 95(L) 98 - 107 mmol/L [facility] Gluc Whole Bld 82 65 - 199 mg/dL [facility] Comment:Diabetes: >=200 mg/d L plus symptoms Lactate WB 1.1 0.5 - 2.2 mmol/L [facility] Blood Gas Source Venous [facility] Blood Venous Draw / Unknown 05/16/2023 4:22 AM EDT 05/16/2023 4:31 AM EDT Narrative Resulting Agency Comment Spec In Lab Bonita TOBAR CHEMISTRY ORDERABLES [facility] [place] [address] * (ABNORMAL) Differential, Automated (05/16/2023 4:20 AM EDT) Neutrophil % 84.1 % [facility] Neutrophil Absolute 6.22(H) 1.70 - 6.10 x10(3)/mc L [facility] Lymph % 5.8 % [facility] Lymphocytes Abs 0.4(L) 0.9 - 3.2 x10(3)/mc L [facility] Monocyte % 8.8 % [facility] Monocyte Abs 0.6 0.3 - 0.9 x10(3)/mc L [facility] Eos % 0.4 % [facility] Eosinophils Abs 0.0 0.0 - 0.4 x10(3)/mc L [facility] Basophil % 0.0 % [facility] Baso Absolute 0.0 0.0 - 0.1 x10(3)/mc L [facility] Immature Gran % 0.90 % [facility] Comment: Immature granulocytes(IG's)percentage and absolute count will include metamyelocytes, myelocytes, and promyelocytes. Blood smears from CBCs yielding IG's will be scanned manually for concordance. If this scan disagrees with the automated IG or if promyelocytes are noted, a manual differential will be performed. Immature Gran Absolute 0.07(H) 0.00 - 0.04 x10(3)/mc L [facility] Blood 05/16/2023 4:20 AM EDT 05/16/2023 4:29 AM EDT Narrative Resulting Agency Comment Spec In Lab James Agustin MD HEMATOLOGY ORDER JODIE [facility] [place] [address] * (ABNORMAL) Hemogram (05/16/2023 4:20 AM EDT) White Blood Cell 7.4 4.0 - 9.5 x10(3)/mc L [facility] Red Blood Cell 2.40(L) 4.00 - 5.21 x10(6)/mc L [facility] Hemoglobin 7.8(L) 11.7 - 15.5 g/dL [facility] Hematocrit 22.5(L) 35.7 - 45.8 % [facility] Mean Cell Volume 93.8 82.6 - 94.4 fL [facility] Mean Cell Hemoglobin 32.5(H) 27.1 - 32.0 pg [facility] Mean Cell Hemoglobin Concentration 34.7 31.7 - 35.0 g/dL [facility] Platelet 120(L) 145 - 357 x10(3)/mc L [facility] RDW Standard Deviation 42.9 37.0 - 46.0 fL [facility] RDW coefficient of variation 12.9 11.5 - 14.1 % [facility] Mean Platelet Volume 11.3 7.6 - 12.9 fL [facility] NRBC% auto 0.7 % [facility] NRBC Absolute 0.050(H) 0.000 - 0.000 x10(3)/mc L [facility] Blood 05/16/2023 4:20 AM EDT 05/16/2023 4:29 AM EDT Narrative Resulting Agency Comment Spec In Lab James Agustin MD HEMATOLOGY ORDER JODIE [facility] [place] [address] * (ABNORMAL) Basic Metabolic Panel (non-fasting) (05/16/2023 4:20 AM EDT) Glucose 89 65 - 199 mg/dL [facility] Comment:Diabetes: >=200 mg/d L plus symptoms Blood Urea Nitrogen 108(H) 8 - 18 mg/dL [facility] Creatinine 4.74(H) 0.70 - 1.20 mg/dL [facility] Comment:result rechecked-OLIVA Sodium 132(L) 135 - 145 mmol/L [facility] Potassium 3.9 3.5 - 5.0 mmol/L [facility] Comment: Please note: ??Patients with WBC >100,000 may have falsely elevated Potassium levels. ??For accurate Potassium quantification in these patients send serum separator tube (gold top) for subsequent determinations. ??Contact the Clinical Chemistry Laboratory if there are any questions. Chloride 95(L) 98 - 107 mmol/L [facility] Carbon Dioxide 18(L) 22 - 31 mmol/L [facility] Anion Gap 19(H) 5 - 15 mmol/L [facility] Calcium 9.2 8.5 - 10.5 mg/dL [facility] Est Glomerular Filtration Rate 10(L) >=60 mL/min/1. 73 m?? [facility] Comment: This patient's [...] Lab Alirio Hudson MD CHEMISTRY ORDERABLE S [facility] [place] [address] * (ABNORMAL) Iron and TIBC (05/16/2023 4:20 AM EDT) Iron 31 30 - 150 mcg/dL [facility] TIBC 259 250 - 450 mcg/dL [facility] Iron Saturation 12(L) 20 - 50 % [facility] Blood 05/16/2023 4:20 AM EDT 05/16/2023 4:29 AM EDT Narrative Resulting Agency Comment Spec In Lab Kristopher Ayoub MD CHEMISTRY ORDERABLES [facility] [place] [address] * (ABNORMAL) Basic Metabolic Panel (non-fasting) (05/15/2023 12:50 AM EDT) Glucose 101 65 - 199 mg/dL [facility] Comment:Diabetes: >=200 mg/d L plus symptoms Blood Urea Nitrogen 109(H) 8 - 18 mg/dL [facility] Creatinine 5.62(H) 0.70 - 1.20 mg/dL [facility] Comment:result rechecked-KS Sodium 131(L) 135 - 145 mmol/L [facility] Comment:result rechecked-KS Potassium 3.7 3.5 - 5.0 mmol/L [facility] Comment: result rechecked-KS Please note: ??Patients with WBC >100,000 may have falsely elevated Potassium levels. ??For accurate Potassium quantification in these patients send serum separator tube (gold top) for subsequent determinations. ??Contact the Clinical Chemistry Laboratory if there are any questions. Chloride 92(L) 98 - 107 mmol/L [facility] Comment:result rechecked-KS Carbon Dioxide 18(L) 22 - 31 mmol/L [facility] Comment:result rechecked-KS Anion Gap 21(H) 5 - 15 mmol/L [facility] Calcium 8.9 8.5 - 10.5 mg/dL [facility] Est Glomerular Filtration Rate 8(L) >=60 mL/min/1. 73 m?? [facility] Comment: This patient's [...] Lab Alirio Hudson MD CHEMISTRY ORDERABLE S [facility] [place] [address] * (ABNORMAL) Hemogram (05/15/2023 12:50 AM EDT) White Blood Cell 9.1 4.0 - 9.5 x10(3)/mc L [facility] Red Blood Cell 2.19(L) 4.00 - 5.21 x10(6)/mc L [facility] Hemoglobin 7.2(L) 11.7 - 15.5 g/dL [facility] Hematocrit 20.6(L) 35.7 - 45.8 % [facility] Mean Cell Volume 94.1 82.6 - 94.4 fL [facility] Mean Cell Hemoglobin 32.9(H) 27.1 - 32.0 pg [facility] Mean Cell Hemoglobin Concentration 35.0 31.7 - 35.0 g/dL [facility] Platelet 109(L) 145 - 357 x10(3)/mc L [facility] RDW Standard Deviation 43.6 37.0 - 46.0 fL [facility] RDW coefficient of variation 12.9 11.5 - 14.1 % [facility] Mean Platelet Volume 10.4 7.6 - 12.9 fL [facility] NRBC% auto 2.1 % [facility] NRBC Absolute 0.190(H) 0.000 - 0.000 x10(3)/ L [facility] Blood 05/15/2023 12:5 0 AM EDT 05/15/2023 12:52 AM EDT Narrative Resulting Agency Comment Spec In Lab Alirio Hudson MD HEMATOLOGY ORDERABL ES Performing Organization Address City/State/[facility] Co de Phone Number [facility] [place] [address] * (ABNORMAL) BLOOD GAS 2 VENOUS (05/15/2023 12:49 AM EDT) pH, Venous 7.33 7.32 - 7.42 [facility] PCO2, Venous 37(L) 41 - 51 mmHg [facility] PO2, Venous 34 25 - 40 mmHg [facility] Bicarbonate, Venous 19.1 mmol/L [facility] Base Excess, Venous -6.8 mmol/L [facility] Hgb Blood Gas 10.8(L) 11.7 - 15.5 g/dL [facility] Oxyhemoglobin, Venous 58.1 % [facility] Carboxyhemoglob in, Venous 0.3 % [facility] Comment: Nonsmokers: 0.5-1.5% COHB Smokers: Variable, but usually less than 10% Toxic: 20-30% COHB Lethal: Greater than 60% COHB Methemoglobin, Venous 0.6 <=1.5 % [facility] Na Whole Blood 136 135 - 145 mmol/L [facility] K Whole Blood 3.7 3.5 - 5.0 mmol/L [facility] Comment: Please note: Patients with WBC >100,000 may have falsely elevated Potassium levels. Contact the Clinical Chemistry Laboratory if there are any questions. ICa Whole Blood 1.12(L) 1.15 - 1.33 mmol/L [facility] Comment: Note: ??Total bilirubin higher than 20 mg/dL may lead to falsely low ionized calcium. CL Whole Blood 95(L) 98 - 107 mmol/L [facility] Gluc Whole Bld 101 65 - 199 mg/dL [facility] Comment:Diabetes: >=200 mg/d L plus symptoms Lactate WB 1.3 0.5 - 2.2 mmol/L [facility] Flow, Mike 1.0 LPM [facility] Blood Gas Source Venous [facility] Blood 05/15/2023 12:4 9 AM EDT 05/15/2023 12:49 AM EDT Alirio Hudson MD POINT OF CARE TEST ORDERABLES Performing Organization Address City/State/[facility] Co de Phone Number [facility] [place] [address] * US Retroperitoneal Complete (05/14/2023 3:53 PM [...] have questions, please contact the health healthcare financial analyst that requested your imaging first. ? Hadyen Robledo, Staff Physician Electronically Signed Final Report ?? 05/14/2023 04:39 pm Narrative 05/14/2023 4:39 PM EDT Renal ? (Signed Final 05/14/2023 04:39 pm) PATIENT INFO: ID #: ? [id number] ?: ??[birth year] (67 yrs)(F) Name: ? PURNIMA THACKER ?Visit Date: 05/14/2023 03:44 pm PERFORMED BY: Attending: ?Meena CULP, [place]den Stafford Resident: ? Nell CULP, Anand August Performed By: ? Consuelo Tello RDMS Referred By: ?ALIRIO HUDSON Location: ? [place] SERVICE(S) PROVIDED: URETRO - Retroperitoneal Complete - [id number] ? [id number] INDICATIONS: EVANS COMPARISON: CT: Abdomen/Pelvis 05/11/23 RIGHT [...] 05/14/2023 04:39 pm) PATIENT INFO: ID #: [id number] : 55 (67 yrs)(F) Name: PURNIMA THACKER Visit Date: 05/14/2023 03:44 pm PERFORMED BY: Attending: [place]den Robledo MD Resident: Anand Camejo MD Performed By: Consuelo Tello RDMS Referred By: ALIRIO HUDSON Location: [place] SERVICE(S) PROVIDED: URETRO - Retroperitoneal Complete - [id number] INDICATIONS: EVANS COMPARISON: CT: Abdomen/Pelvis 05/11/23 RIGHT [...] have questions, please contact the health healthcare financial analyst that requested your imaging first. [place]den Robledo, Staff Physician Electronically Signed Final Report 05/14/2023 04:39 pm Alirio Hudson MD IMG US GEN ORDERABL ES * CK (05/14/2023 3:17 PM EDT) Creatine Kinase 123 0 - 160 unit/L [facility] Blood 05/14/2023 3:17 PM EDT 05/14/2023 3:31 PM EDT Narrative Resulting Agency Comment Spec In Lab Alirio Hudson MD CHEMISTRY ORDERABLE S Performing Organization Address [facility] Co de Phone Number [facility] [place] [address] * (ABNORMAL) Uric acid (05/14/2023 3:17 PM EDT) Uric Acid 14.9(H) 2.5 - 6.5 mg/dL [facility] Blood 05/14/2023 3:17 PM EDT 05/14/2023 3:31 PM EDT Narrative Resulting Agency Comment Spec In Lab Alirio Hudson MD CHEMISTRY ORDERABLE S Performing Organization Address [facility] Co de Phone Number [facility] [place] [address] * (ABNORMAL) Osmolality (05/14/2023 3:17 PM EDT) Osmolality 311(H) 275 - 295 mOsm/kg [facility] Blood 05/14/2023 3:17 PM EDT 05/14/2023 3:31 PM EDT Narrative Resulting Agency Comment Spec In Lab Alirio Hudson [place] [address] * (ABNORMAL) Differential, Automated (05/14/2023 1:10 AM EDT) Neutrophil % 87.2 % [facility] Neutrophil Absolute 9.74(H) 1.70 - 6.10 x10(3)/mc L [facility] Lymph % 3.9 % [facility] Lymphocytes Abs 0.4(L) 0.9 - 3.2 x10(3)/mc L [facility] Monocyte % 7.9 % [facility] Monocyte Abs 0.9 0.3 - 0.9 x10(3)/mc L [facility] Eos % 0.0 % [facility] Eosinophils Abs 0.0 0.0 - 0.4 x10(3)/mc L [facility] Basophil % 0.1 % [facility] Baso Absolute 0.0 0.0 - 0.1 x10(3)/mc L [facility] Immature Gran % 0.90 % [facility] Comment: Immature granulocytes(IG's)percentage and absolute count will include metamyelocytes, myelocytes, and promyelocytes. Blood smears from CBCs yielding IG's will be scanned manually for concordance. If this scan disagrees with the automated IG or if promyelocytes are noted, a manual differential will be performed. Immature Gran Absolute 0.10(H) 0.00 - 0.04 x10(3)/ L [facility] Blood 05/14/2023 1:10 AM EDT 05/14/2023 1:24 AM EDT Narrative Resulting Agency Comment Spec In Lab Bonita TOBAR HEMATOLOGY ORDERABLE S Performing Organization Address City/[facility]/ZIP Co de Phone Number [facility] [place] [address] * (ABNORMAL) Hemogram (05/14/2023 1:10 AM EDT) White Blood Cell 11.2(H) 4.0 - 9.5 x10(3)/mc L [facility] Red Blood Cell 2.19(L) 4.00 - 5.21 x10(6)/mc L [facility] Hemoglobin 7.2(L) 11.7 - 15.5 g/dL [facility] Hematocrit 20.3(L) 35.7 - 45.8 % [facility] Mean Cell Volume 92.7 82.6 - 94.4 fL [facility] Mean Cell Hemoglobin 32.9(H) 27.1 - 32.0 pg [facility] Mean Cell Hemoglobin Concentration 35.5(H) 31.7 - 35.0 g/dL [facility] Platelet 112(L) 145 - 357 x10(3)/mc L [facility] RDW Standard Deviation 41.4 37.0 - 46.0 fL [facility] RDW coefficient of variation 12.5 11.5 - 14.1 % [facility] Mean Platelet Volume 10.4 7.6 - 12.9 fL [facility] NRBC% auto 1.5 % [facility] NRBC Absolute 0.170(H) 0.000 - 0.000 x10(3)/ L [facility] Blood 05/14/2023 1:10 AM EDT 05/14/2023 1:24 AM EDT Narrative Resulting Agency Comment Spec In Lab Bonita TOBAR HEMATOLOGY ORDERABLE S [facility] [place] [address] * (ABNORMAL) Comprehensive metabolic panel (non-fasting) (05/14/2023 1:10 AM EDT) Glucose 120 65 - 199 mg/dL [facility] Comment:Diabetes: >=200 mg/d L plus symptoms Blood Urea Nitrogen 98(H) 8 - 18 mg/dL [facility] Creatinine 4.80(H) 0.70 - 1.20 mg/dL [facility] Comment:result rechecked-ssc Sodium 132(L) 135 - 145 mmol/L [facility] Potassium 4.1 3.5 - 5.0 mmol/L [facility] Comment: Please note: ??Patients with WBC >100,000 may have falsely elevated Potassium levels. ??For accurate Potassium quantification in these patients send serum separator tube (gold top) for subsequent determinations. ??Contact the Clinical Chemistry Laboratory if there are any questions. Chloride 94(L) 98 - 107 mmol/L [facility] Carbon Dioxide 18(L) 22 - 31 mmol/L [facility] Anion Gap 20(H) 5 - 15 mmol/L [facility] Calcium 8.5 8.5 - 10.5 mg/dL [facility] Protein, Total 5.8(L) 6.1 - 8.0 g/dL [facility] Albumin 3.6 3.2 - 5.2 g/dL [facility] Aspartate Aminotransferase 319(H) 0 - 30 unit/L [facility] Alanine Aminotransferase 437(H) 0 - 30 unit/L [facility] Alkaline Phosphatase 86 35 - 105 unit/L [facility] Bilirubin, Total 0.4 0.2 - 1.3 mg/dL [facility] Est Glomerular Filtration Rate 9(L) >=60 mL/min/1. 73 m?? [facility] Comment: This patient's [...] Lab Alirio Hudson MD CHEMISTRY ORDERABLE S [facility] [place] [address] * APTT (05/13/2023 10:15 AM EDT) Partial Thromboplastin Time 27 25 - 37 sec [facility] Comment: The PTT is [...] ES Performing Organization Address [facility] de Phone Number [facility] [place] [address] * (ABNORMAL) Prothrombin Time (05/13/2023 10:15 AM EDT) Prothrombin Time 14.6(H) 9.4 - 12.5 sec [facility] International Normalization Ratio 1.3 [facility] Comment: An INR [...] ORDERABL ES Performing Organization Address [facility] de Phone Number [facility] [place] [address] * EKG 12 Lead (05/13/2023 9:22 AM EDT) Ventricular rate 92 BPM MUSE SYSTEM Atrial Rate 92 BPM MUSE SYSTEM P-R Interval 140 ms MUSE SYSTEM QRS Duration 104 ms MUSE SYSTEM Q-T Interval 384 ms MUSE SYSTEM QTC Calculated (Bezet) 474 ms MUSE SYSTEM Calculated P [place] 33 degrees MUSE SYSTEM Calculated R [place] 41 degrees MUSE SYSTEM Calculated T [place] -35 degrees MUSE SYSTEM INTERPRETATION Sinus rhythm with frequent Premature ventricular complexes Septal infarct , age undetermined ST & T wave abnormality, consider lateral ischemia Abnormal ECG When compared with ECG of 12-MAY-2023 10:10, Premature ventricular complexes are now Present I personally reviewed the tracing and edited the fellows interpretation Confirmed by fellow MD Anitha, Carissa ([id number]) on 05/13/2023 3:25:30 PM Confirmed by Maxx Best ([id number]) on 05/13/2023 8:30:56 PM MUSE SYSTEM 05/13/2023 9:22 AM EDT 05/13/2023 8:30 PM EDT Alirio Hudson MD ECG ORDERABLES MUSE SYSTEM * (ABNORMAL) Differential, Automated (05/13/2023 1:15 AM EDT) Neutrophil % 88.1 % [facility] Neutrophil Absolute 7.62(H) 1.70 - 6.10 x10(3)/mc L [facility] Lymph % 3.1 % [facility] Lymphocytes Abs 0.3(L) 0.9 - 3.2 x10(3)/mc L [facility] Monocyte % 7.9 % [facility] Monocyte Abs 0.7 0.3 - 0.9 x10(3)/mc L [facility] Eos % 0.0 % [facility] Eosinophils Abs 0.0 0.0 - 0.4 x10(3)/mc L [facility] Basophil % 0.1 % [facility] Baso Absolute 0.0 0.0 - 0.1 x10(3)/mc L [facility] Immature Gran % 0.80 % [facility] Comment: Immature granulocytes(IG's)percentage and absolute count will include metamyelocytes, myelocytes, and promyelocytes. Blood smears from CBCs yielding IG's will be scanned manually for concordance. If this scan disagrees with the automated IG or if promyelocytes are noted, a manual differential will be performed. Immature Gran Absolute 0.07(H) 0.00 - 0.04 x10(3)/mc L [facility] Blood 05/13/2023 1:15 AM EDT 05/13/2023 1:29 AM EDT Narrative Resulting Agency Comment Spec In Lab Lorri TOBAR HEMATOLOGY ORDERABLE S [facility] [place] [address] * (ABNORMAL) Hemogram (05/13/2023 1:15 AM EDT) White Blood Cell 8.6 4.0 - 9.5 x10(3)/mc L [facility] Red Blood Cell 2.37(L) 4.00 - 5.21 x10(6)/mc L [facility] Hemoglobin 7.8(L) 11.7 - 15.5 g/dL [facility] Hematocrit 22.2(L) 35.7 - 45.8 % [facility] Mean Cell Volume 93.7 82.6 - 94.4 fL [facility] Mean Cell Hemoglobin 32.9(H) 27.1 - 32.0 pg [facility] Mean Cell Hemoglobin Concentration 35.1(H) 31.7 - 35.0 g/dL [facility] Platelet 130(L) 145 - 357 x10(3)/mc L [facility] RDW Standard Deviation 41.7 37.0 - 46.0 fL [facility] RDW coefficient of variation 12.5 11.5 - 14.1 % [facility] Mean Platelet Volume 10.2 7.6 - 12.9 fL [facility] NRBC% auto 0.5 % [facility] NRBC Absolute 0.040(H) 0.000 - 0.000 x10(3)/ L [facility] Blood 05/13/2023 1:15 AM EDT 05/13/2023 1:29 AM EDT Narrative Resulting Agency Comment Spec In Lab Lorri TOBAR HEMATOLOGY ORDERABLE S [facility] [place] [address] * (ABNORMAL) Hepatic Function Panel (05/13/2023 1:15 AM EDT) Protein, Total 5.5(L) 6.1 - 8.0 g/dL [facility] Albumin 3.0(L) 3.2 - 5.2 g/dL [facility] Aspartate Aminotransferase 792(H) 0 - 30 unit/L [facility] Alanine Aminotransferase 903(H) 0 - 30 unit/L [facility] Alkaline Phosphatase 85 35 - 105 unit/L [facility] Bilirubin, Total 0.5 0.2 - 1.3 mg/dL [facility] Bilirubin, Direct 0.3 0.0 - 0.3 mg/dL [facility] Blood 05/13/2023 1:15 AM EDT 05/13/2023 1:29 AM EDT Narrative Resulting Agency Comment Spec In Lab Alirio Hudson MD CHEMISTRY ORDERABLE S [facility] [place] [address] * (ABNORMAL) Basic Metabolic Panel (non-fasting) (05/13/2023 1:15 AM EDT) Glucose 107 65 - 199 mg/dL [facility] Comment:Diabetes: >=200 mg/d L plus symptoms Blood Urea Nitrogen 82(H) 8 - 18 mg/dL [facility] Creatinine 3.15(H) 0.70 - 1.20 mg/dL [facility] Comment:result rechecked-NINAJ Sodium 132(L) 135 - 145 mmol/L [facility] Potassium 3.8 3.5 - 5.0 mmol/L [facility] Comment: Please note: ??Patients with WBC >100,000 may have falsely elevated Potassium levels. ??For accurate Potassium quantification in these patients send serum separator tube (gold top) for subsequent determinations. ??Contact the Clinical Chemistry Laboratory if there are any questions. Chloride 95(L) 98 - 107 mmol/L [facility] Carbon Dioxide 20(L) 22 - 31 mmol/L [facility] Anion Gap 17(H) 5 - 15 mmol/L [facility] Calcium 8.3(L) 8.5 - 10.5 mg/dL [facility] Est Glomerular Filtration Rate 16(L) >=60 mL/min/1. 73 m?? [facility] Comment: This patient's [...] Lab Alirio Hudson MD CHEMISTRY ORDERABLE S [facility] [place] [address] * (ABNORMAL) BLOOD GAS 2 ARTERIAL (05/12/2023 3:57 PM EDT) pH, Arterial 7.39 7.35 - 7.45 [facility] PCO2, Arterial 33(L) 35 - 45 mmHg [facility] PO2, Arterial 101 85 - 104 mmHg [facility] Bicarbonate, Arterial 19.5(L) 20.0 - 26.0 mmol/L [facility] Base Excess, Arterial -5.5(L) -3.0 - 3.0 mmol/L [facility] Hgb Blood Gas 9.8(L) 11.7 - 15.5 g/dL [facility] Oxyhemoglobin, Arterial 95.2 94.0 - 97.0 % [facility] Carboxyhemoglob in, Arterial 0.2 % [facility] Comment: Nonsmokers: 0.5-1.5% COHB Smokers: Variable, but usually less than 10% Toxic: 20-30% COHB Lethal: Greater than 60% COHB Methemoglobin, Arterial 0.8 <=1.5 % [facility] Na Whole Blood 129(L) 135 - 145 mmol/L [facility] K Whole Blood 3.8 3.5 - 5.0 mmol/L [facility] Comment: Please note: Patients with WBC >100,000 may have falsely elevated Potassium levels. Contact the Clinical Chemistry Laboratory if there are any questions. ICa Whole Blood 1.05(L) 1.15 - 1.33 mmol/L [facility] Comment: Note: ??Total bilirubin higher than 20 mg/dL may lead to falsely low ionized calcium. CL Whole Blood 96(L) 98 - 107 mmol/L [facility] Gluc Whole Bld 178 65 - 199 mg/dL [facility] Comment:Diabetes: >=200 mg/d L plus symptoms. Lactate WB 1.5 0.5 - 2.2 mmol/L [facility] FIO2 Art 40 % [facility] PF Ratio Art 252 [facility] Blood 05/12/2023 3:57 PM EDT 05/12/2023 3:57 PM EDT Alirio Hudson MD POINT OF CARE TEST ORDERABLES Performing Organization Address [facility] Co de Phone Number [facility] [place] [address] * (ABNORMAL) Coox2 (05/12/2023 2:25 PM EDT) pO2, Coox 37 mmHg [facility] Hgb Blood Gas 9.5(L) 11.7 - 15.5 g/dL [facility] Oxyhemoglobin, Coox 59.9 % [facility] Carboxyhemoglo bin, Coox 0.3 % [facility] Comment: Nonsmokers: 0.5-1.5% COHB Smokers: Variable, but usually less than 10% Toxic: 20-30% COHB Lethal: Greater than 60% COHB Methemoglobin, Coox 0.7 <=1.5 % [facility] Source Coox Mixed Venous [facility] Blood 05/12/2023 2:25 PM EDT 05/12/2023 2:25 PM EDT Alirio Hudson MD POINT OF CARE TEST ORDERABLES Performing Organization Address [facility] Co de Phone Number [facility] [place] [address] * (ABNORMAL) BLOOD GAS 2 ARTERIAL (05/12/2023 2:23 PM EDT) pH, Arterial 7.37 7.35 - 7.45 [facility] PCO2, Arterial 36 35 - 45 mmHg [facility] PO2, Arterial 102 85 - 104 mmHg [facility] Bicarbonate, Arterial 20.4 20.0 - 26.0 mmol/L [facility] Base Excess, Arterial -4.8(L) -3.0 - 3.0 mmol/L [facility] Hgb Blood Gas 12.7 11.7 - 15.5 g/dL [facility] Oxyhemoglobin, Arterial 95.4 94.0 - 97.0 % [facility] Carboxyhemoglob in, Arterial 0.3 % [facility] Comment: Nonsmokers: 0.5-1.5% COHB Smokers: Variable, but usually less than 10% Toxic: 20-30% COHB Lethal: Greater than 60% COHB Methemoglobin, Arterial 0.7 <=1.5 % [facility] Na Whole Blood 129(L) 135 - 145 mmol/L [facility] K Whole Blood 3.7 3.5 - 5.0 mmol/L [facility] Comment: Please note: Patients with WBC >100,000 may have falsely elevated Potassium levels. Contact the Clinical Chemistry Laboratory if there are any questions. ICa Whole Blood 1.05(L) 1.15 - 1.33 mmol/L [facility] Comment: Note: ??Total bilirubin higher than 20 mg/dL may lead to falsely low ionized calcium. CL Whole Blood 95(L) 98 - 107 mmol/L [facility] Gluc Whole Bld 168 65 - 199 mg/dL [facility] Comment:Diabetes: >=200 mg/d L plus symptoms. Lactate WB 1.8 0.5 - 2.2 mmol/L [facility] FIO2 Art 40 % [facility] PF Ratio Art 255 [facility] Blood 05/12/2023 2:23 PM EDT 05/12/2023 2:23 PM EDT Alirio Hudson MD POINT OF CARE TEST ORDERABLES [facility] [place] [address] * (ABNORMAL) Troponin (05/12/2023 2:05 PM EDT) Troponin-T, High Sensitivity 1,022(H) <=14 ng/L [facility] Comment: This patient's troponin [...] can be found in the [facility] Test Catalog Troponin - [facility] Test Catalog Reference: Fourth [place] Definition of Myocardial Infarction. Journal of the [place] [employer] 2018;72:8909-9723 Blood 05/12/2023 2:05 PM EDT 05/12/2023 2:14 PM EDT Narrative Resulting Agency Comment Spec In Lab Alirio Hudson MD CHEMISTRY ORDERABLE S [facility] [place] [address] * (ABNORMAL) Hemoglobin (05/12/2023 2:05 PM EDT) Hemoglobin 8.5(L) 11.7 - 15.5 g/dL [facility] Blood 05/12/2023 2:05 PM EDT 05/12/2023 2:14 PM EDT Narrative Resulting Agency Comment Spec In Lab Alirio Hudson MD HEMATOLOGY ORDERABL ES Performing Organization Address [facility] Co de Phone Number [facility] [place] [address] * Potassium (05/12/2023 2:05 PM EDT) Potassium 3.9 3.5 - 5.0 mmol/L [facility] Comment: Please note: [...] MD CHEMISTRY ORDERABLE S Performing Organization Address [facility] Co de Phone Number [facility] [place] [address] * (ABNORMAL) BLOOD GAS 2 ARTERIAL (05/12/2023 11:05 AM EDT) pH, Arterial 7.34(L) 7.35 - 7.45 [facility] PCO2, Arterial 42 35 - 45 mmHg [facility] PO2, Arterial 73(L) 85 - 104 mmHg [facility] Bicarbonate, Arterial 22.1 20.0 - 26.0 mmol/L [facility] Base Excess, Arterial -3.6(L) -3.0 - 3.0 mmol/L [facility] Hgb Blood Gas 9.3(L) 11.7 - 15.5 g/dL [facility] Oxyhemoglobin, Arterial 89.3(L) 94.0 - 97.0 % [facility] Carboxyhemoglob in, Arterial 0.2 % [facility] Comment: Nonsmokers: 0.5-1.5% COHB Smokers: Variable, but usually less than 10% Toxic: 20-30% COHB Lethal: Greater than 60% COHB Methemoglobin, Arterial 0.9 <=1.5 % [facility] Na Whole Blood 131(L) 135 - 145 mmol/L [facility] K Whole Blood 3.8 3.5 - 5.0 mmol/L [facility] Comment: Please note: Patients with WBC >100,000 may have falsely elevated Potassium levels. Contact the Clinical Chemistry Laboratory if there are any questions. ICa Whole Blood 1.04(L) 1.15 - 1.33 mmol/L [facility] Comment: Note: ??Total bilirubin higher than 20 mg/dL may lead to falsely low ionized calcium. CL Whole Blood 96(L) 98 - 107 mmol/L [facility] Gluc Whole Bld 152 65 - 199 mg/dL [facility] Comment:Diabetes: >=200 mg/d L plus symptoms. Lactate WB 2.8(H) 0.5 - 2.2 mmol/L [facility] FIO2 Art 40 % [facility] PF Ratio Art 182 [facility] Blood 05/12/2023 11:0 5 AM EDT 05/12/2023 11:05 AM EDT Alirio Hudson MD POINT OF CARE TEST ORDERABLES Performing Organization Address City/State/[facility] Co de Phone Number [facility] [place] [address] * (ABNORMAL) BLOOD GAS 2 ARTERIAL (05/12/2023 10:14 AM EDT) pH, Arterial 7.18(Criti gabrielle) 7.35 - 7.45 [facility] Comment:Noted by spike machine operator. PCO2, Arterial 45 35 - 45 mmHg [facility] PO2, Arterial 186(H) 85 - 104 mmHg [facility] Bicarbonate, Arterial 16.2(L) 20.0 - 26.0 mmol/L [facility] Base Excess, Arterial -12.2(L) -3.0 - 3.0 mmol/L [facility] Hgb Blood Gas 10.0(L) 11.7 - 15.5 g/dL [facility] Oxyhemoglobin, Arterial 97.0 94.0 - 97.0 % [facility] Carboxyhemoglob in, Arterial 0.2 % [facility] Comment: Nonsmokers: 0.5-1.5% COHB Smokers: Variable, but usually less than 10% Toxic: 20-30% COHB Lethal: Greater than 60% COHB Methemoglobin, Arterial 0.9 <=1.5 % [facility] Na Whole Blood 129(L) 135 - 145 mmol/L [facility] K Whole Blood 3.6 3.5 - 5.0 mmol/L [facility] Comment: Please note: Patients with WBC >100,000 may have falsely elevated Potassium levels. Contact the Clinical Chemistry Laboratory if there are any questions. ICa Whole Blood 1.10(L) 1.15 - 1.33 mmol/L [facility] Comment: Note: ??Total bilirubin higher than 20 mg/dL may lead to falsely low ionized calcium. CL Whole Blood 97(L) 98 - 107 mmol/L [facility] Gluc Whole Bld 161 65 - 199 mg/dL [facility] Comment:Diabetes: >=200 mg/d L plus symptoms. Lactate WB 3.3(H) 0.5 - 2.2 mmol/L [facility] FIO2 Art 100 % [facility] PF Ratio Art 186 [facility] Blood 05/12/2023 10:1 4 AM EDT 05/12/2023 10:14 AM EDT Alirio Hudson MD POINT OF CARE TEST ORDERABLES Performing Organization Address City/State/[facility] Co de Phone Number [facility] [place] [address] * EKG 12 Lead (05/12/2023 10:10 AM EDT) Ventricular rate 116 BPM MUSE SYSTEM Atrial Rate 116 BPM MUSE SYSTEM P-R Interval 158 ms MUSE SYSTEM QRS Duration 114 ms MUSE SYSTEM Q-T Interval 348 ms MUSE SYSTEM QTC Calculated (Bezet) 483 ms MUSE SYSTEM Calculated P [place] 37 degrees MUSE SYSTEM Calculated R [place] 31 degrees MUSE SYSTEM Calculated T [place] -138 degrees MUSE SYSTEM INTERPRETATION Sinus tachycardia [...] interpretation Confirmed by fellow MD Anuja, Jim ([id number]) on 05/12/2023 1:04:20 PM Confirmed by MD Mono, Eleni ([id number]) on 05/12/2023 9:28:34 PM MUSE SYSTEM 05/12/2023 [...] have questions please contact the health healthcare financial analyst that requested your imaging first. ? Electronically signed by: Chyna Johnson MD, [facility] ??([phone]), at 05/12/2023 10:08 AM Narrative 05/12/2023 10:08 AM EDT EXAMINATION: XR CHEST ONE VIEW CLINICAL HISTORY: Post TAVR TECHNIQUE: 1 view of the chest COMPARISON: Chest radiograph from earlier today FINDINGS: Interval placement of endotracheal tube with tip terminating 2 cm above the shira. Interval placement of enteric tube projecting along the expected course of the esophagus and outside the ylpfv-pg-tsru. Interval retraction of right IJ approach pulmonary [...] expected course ofthe esophagus and outside the msutu-un-ppdv. Interval retraction of right IJ approach pulmonary [...] who have questions please contactthe health healthcare financial analyst that requested your imaging first. Alirio Hudson [...] 1955 ? Height: 154 cm ? Account: [id number] Age: 67 yrs ? Weight: 75 kg [...] mL/m2. POST TAVR: Normal function of the poxqw-xn-hnlmo prosthesis. See below for hemodynamic parameters. Slight improvement in left and right ventricular systolic function. LVEF now 20-25%. No pericardial effusion. See report for additional findings. Procedure Limited - 72130. Doppler - 96573. Color Doppler - 20642. Left Ventricle Left ventricle is of normal [...] Date: 307:33 AMBP: 96/63 mmHg Patient Location: [address] : 1955 Height: 154 cm Account: [id number] Age: 67 yrs Weight: 75 kg Gender: [...] 28mL/m2. POST TAVR: Normal function of the ooxsz-gi-iccin prosthesis. See belowfor hemodynamic parameters. Slight improvement in left and right ventricularsystolic function. LVEF now 20-25%. No pericardial effusion. See report for additional findings. Procedure Limited - 35492. Doppler - 19900. Color Doppler - 41135. Left Ventricle Left ventricle is of normal [...] Modality Other Narrative 05/12/2023 2:37 PM EDT ?[facility] ? Cardiac Catheterization/Intervention Report ? Patient Name: Kirstie, Purnima M. ? Procedure Date: 05/12/2023 ? A #: [id number] ? Primary Physician: Antelmo Sharma ? Case #: [id number] ? File Name: [id number] ? Catheterization Order Number: [id number] ? [facility] ? Final Report [place], [place] ? Patient Name: ? Purnima M. Kirstie ? ID#: ?[id number] ? : ?1955 ? Procedure Date: ? May 12, 2023 ? Case #: ? [id number] ? Room: ? 6 ? Case Physicians: ?Antelmo Sharma M.D. ?Start: ?08:03 ?Alirio Hudson M.D. ?Admission: ??05/08/2023 ?Lynda Mcgowan M.D. ? Discharge: ??05/22/2023 ?Fellow: ? Kristied Bhavna Tejeda. ? Referring Physician: ??Mario Alberto Chin M.D. ? Procedures: ?* Coronary Angiography ?* Left Heart Catheterization ?* Coronary Stent Insertion ?* Transcatheter Aortic Valve Replacement ?* Vascular Closure Device Deployment ?* Temporary Pacemaker Insertion In Kennel Operator ?* Endotracheal Intubation By Non-Cath Physician [...] was designated as ASA Class IV. The [facility] clinical ?frailty scale is 4: Vulnerable. [...] guide. ??A premounted 4.00 x 30 mm Wayland Bleckley (MINNA) was ? deployed with a maximum [...] calculated STS risk score was 30.1%. A ocsca-gt-huoqd ?procedure was performed on the pre-existing bioprosthetic stented ?prosthesis. The priority of the lwdlh-nf-mxypg procedure was Elective. ?The procedure was performed [...] Lai 3 Ultra RESILIA 23 mm THV ([id number]/v=[id number]) transcatheter ?valve was inserted using standard technique. [...] to nor was it given in the ?porcelain enamel laborer. ?Recommended anti-platelet/anti-thrombotic regimen: ?Continue aspirin 81 mg daily for indefinitely. ?These recommendations are made at the time of the intervention. Patient ?and provider preferences or a changing clinical situation may require ?modification of this regimen. Consult [facility] Interventional Cardiology for [...] regimen. ? Comments: ?Successful right transfemoral TAVR Ypoxs-md-Lofrf with a 23 mm Lai 3 ?THV. [...] insertion-coronary, access site angiography, ?temporary pacemaker in porcelain enamel laborer, intubation-non cath physician, vascular ?closure device, transthoracic echo ??and TAVR. Dr. Alirio Hudson M.D. ?performed the left heart catheterization, access site angiography, ?temporary pacemaker in porcelain enamel laborer, vascular closure device, transthoracic ?echo , TAVR and CPR during cath. Dr. Lynda Mcgowan M.D. performed the ABG, ?anesthesia and intubation-non cath physician. ? Antelmo Sharma M.D. ? Electronically Signed by: Antelmo Sharma M.D. ? Report Finalized: 05/12/2023 ??14:31 ? Report Last Ammended: 07/01/2023 ??11:30 ? Procedure Note Atnelmo Sharma MD - 07/01/2023 [facility] Cardiac Catheterization/Intervention Report Patient Name: Purnima Thacker Procedure Date: 05/12/2023 A #: [id number] Primary Physician: Antelmo Sharma Case #: [id number] File Name: [id number] Catheterization Order Number: [id number] [facility] FinalReport [place], [place] Patient Name: Purnima Thacker ID#:[id number] :1955 Procedure Date: May 12, 2023 Case #: [id number] Room: 6 Case Physicians: Antelmo Sharma M.D. Start: 08:03 Alirio Hudson M.D. Admission:05/08/2023 Lynda Mcgowan M.D. Discharge:05/22/2023 Fellow: Rebekah Tejeda M.D. Referring Physician: Mario Alberto Chin M.D. Procedures: * Coronary Angiography * Left Heart Catheterization * Coronary Stent Insertion * Transcatheter Aortic Valve Replacement * Vascular Closure Device Deployment * Temporary Pacemaker Insertion In Kennel Operator * Endotracheal Intubation By Non-Cath Physician [...] A premounted 4.00 x 30 mm Nils Bleckley (MINNA) was deployed with a maximum inflation [...] calculated STS risk score was 30.1%. A jcwpc-jr-ozkvb procedure was performed on the pre-existing bioprosthetic stented prosthesis. The priority of the zqamu-ac-jywnw procedure wasElective. The procedure was performed under Moderate sedation performed byLynda Mcgowan M.D. (see anesthesia report for additional details). Alirio Hudson M.D. participated in the case (see Cardiac Surgery reportfor additional details). The TAVR sheath was a 14 Fr Corona eSheath Introducer and theaccess site was femoral. Rapid ventricular pacing was performed. An Corona Lai 3 Ultra RESILIA 23 mm THV (s/t=[id number])transcatheter valve was inserted using standard technique. The [...] prior to nor was it given inthe porcelain enamel laborer. Recommended anti-platelet/anti-thrombotic regimen: Continue aspirin 81 mg daily for indefinitely. These recommendations are made at the time of the intervention.Patient and provider preferences or a changing clinical situation mayrequire modification of this regimen. Consult [facility] Interventional Cardiologyfor questions. [...] this regimen. Comments: Successful right transfemoral TAVR Ylhyz-yc-Setyl with a 23 mmSapien 3 THV. We [...] insertion-coronary, access site angiography, temporary pacemaker in porcelain enamel laborer, intubation-non cath physician,vascular closure device, transthoracic echo and TAVR. Dr. Alirio Hudson M.D. performed the left heart catheterization, access site angiography, temporary pacemaker in porcelain enamel laborer, vascular closure device,transthoracic echo , TAVR [...] pH, POC 7.20(Crit ical) 7.35 - 7.45 [facility] Comment:Critical value OK, C C Lab. pCO2, POC 42 35 - 45 mmHg [facility] pO2, POC 260(H) 85 - 104 mmHg [facility] Base Excess, POC -11.0(L) -3.0 - 3.0 mmol/L [facility] Bicarbonate, POC 16.7(L) 20.0 - 26.0 mmol/L [facility] Sodium, POC 129(L) 135 - 145 mmol/L [facility] POC Potassium 3.8 3.5 - 5.0 mmol/L [facility] Ionized Calcium, POC 1.12(L) 1.15 - 1.33 mmol/L [facility] POC Hematocrit 23.0(L) 34.0 - 45.0 % [facility] POC Calc Hgb 7.8(L) 11.2 - 15.7 g/dL [facility] Comment:The calculation of h emoglobin from hematocrit assumes a normal MCHC. POC Bgas Loc CC Lab [facility] Blood 05/12/2023 8:50 AM EDT 05/13/2023 12:00 PM EDT Alirio Hudson MD CHEMISTRY ORDERABLE S [facility] [place] [address] * (ABNORMAL) Point of Care Blood Gas Historical (05/12/2023 8:10 AM EDT) pH, POC 7.27(Crit ical) 7.35 - 7.45 [facility] Comment:Critical value OK, C C Lab. pCO2, POC 37 35 - 45 mmHg [facility] pO2, POC 29(Critic al) 85 - 104 mmHg [facility] Comment:Critical value OK, C C Lab. Base Excess, POC -10.0(L) -3.0 - 3.0 mmol/L [facility] Bicarbonate, POC 16.7(L) 20.0 - 26.0 mmol/L [facility] Sodium, POC 123(L) 135 - 145 mmol/L [facility] POC Potassium 4.0 3.5 - 5.0 mmol/L [facility] Ionized Calcium, POC 1.12(L) 1.15 - 1.33 mmol/L [facility] POC Hematocrit 27.0(L) 34.0 - 45.0 % [facility] POC Calc Hgb 9.2(L) 11.2 - 15.7 g/dL [facility] Comment:The calculation of h emoglobin from hematocrit assumes a normal MCHC. POC Bgas Loc CC Lab [facility] Blood 05/12/2023 8:10 AM EDT 05/13/2023 12:00 PM EDT Alirio Hudson MD CHEMISTRY ORDERABLE S Performing Organization Address City/[facility]/ZIP Co de Phone Number [facility] [place] [address] * (ABNORMAL) Lactate, whole blood, send to lab ([facility]) (05/12/2023 7:00 AM EDT) Lactate WB 2.4(H) 0.5 - 2.2 mmol/L [facility] Blood 05/12/2023 7:00 AM EDT 05/12/2023 7:09 AM EDT Narrative Resulting Agency Comment Spec In Lab Radha Hollins MD CHEMISTRY ORDERABL ES Performing Organization Address [facility] Co de Phone Number [facility] [place] [address] * (ABNORMAL) Comprehensive metabolic panel (non-fasting) (05/12/2023 6:00 AM EDT) Glucose 167 65 - 199 mg/dL [facility] Comment:Diabetes: >=200 mg/d L plus symptoms Blood Urea Nitrogen 67(H) 8 - 18 mg/dL [facility] Creatinine 2.01(H) 0.70 - 1.20 mg/dL [facility] Sodium 131(L) 135 - 145 mmol/L [facility] Potassium 4.3 3.5 - 5.0 mmol/L [facility] Comment: Please note: ??Patients with WBC >100,000 may have falsely elevated Potassium levels. ??For accurate Potassium quantification in these patients send serum separator tube (gold top) for subsequent determinations. ??Contact the Clinical Chemistry Laboratory if there are any questions. Chloride 97(L) 98 - 107 mmol/L [facility] Carbon Dioxide 14(L) 22 - 31 mmol/L [facility] Anion Gap 20(H) 5 - 15 mmol/L [facility] Calcium 8.6 8.5 - 10.5 mg/dL [facility] Protein, Total 6.3 6.1 - 8.0 g/dL [facility] Albumin 3.5 3.2 - 5.2 g/dL [facility] Aspartate Aminotransferase 1,435(H) 0 - 30 unit/L [facility] Alanine Aminotransferase 1,174(H) 0 - 30 unit/L [facility] Alkaline Phosphatase 100 35 - 105 unit/L [facility] Bilirubin, Total 0.9 0.2 - 1.3 mg/dL [facility] Est Glomerular Filtration Rate 27(L) >=60 mL/min/1. 73 m?? [facility] Comment: This patient's [...] Lab Radha Hollins MD CHEMISTRY ORDERABL ES [facility] [place] [address] * (ABNORMAL) Coox2 (05/12/2023 5:08 AM EDT) pO2, Coox 24 mmHg [facility] Hgb Blood Gas 10.4(L) 11.7 - 15.5 g/dL [facility] Oxyhemoglobin, Coox 30.7 % [facility] Carboxyhemoglo bin, Coox 0.3 % [facility] Comment: Nonsmokers: 0.5-1.5% COHB Smokers: Variable, but usually less than 10% Toxic: 20-30% COHB Lethal: Greater than 60% COHB Methemoglobin, Coox 0.8 <=1.5 % [facility] Source Coox Mixed Venous [facility] Blood 05/12/2023 5:08 AM EDT 05/12/2023 5:08 AM EDT Radha Hollins MD POINT OF CARE TEST ORDERABLES Performing Organization Address City/[facility] Co de Phone Number [facility] [place] [address] * (ABNORMAL) Coox2 (05/12/2023 3:21 AM EDT) pO2, Coox 25 mmHg [facility] Hgb Blood Gas 10.8(L) 11.7 - 15.5 g/dL [facility] Oxyhemoglobin, Coox 32.7 % [facility] Carboxyhemoglo bin, Coox 0.3 % [facility] Comment: Nonsmokers: 0.5-1.5% COHB Smokers: Variable, but usually less than 10% Toxic: 20-30% COHB Lethal: Greater than 60% COHB Methemoglobin, Coox 0.7 <=1.5 % [facility] Source Coox Mixed Venous [facility] Blood 05/12/2023 3:21 AM EDT 05/12/2023 3:21 AM EDT Radha Hollins MD POINT OF CARE TEST ORDERABLES Performing Organization Address [facility] Co de Phone Number [facility] [place] [address] * (ABNORMAL) BLOOD GAS 2 ARTERIAL (05/12/2023 3:18 AM EDT) pH, Arterial 7.34(L) 7.35 - 7.45 [facility] PCO2, Arterial 30(L) 35 - 45 mmHg [facility] PO2, Arterial 72(L) 85 - 104 mmHg [facility] Bicarbonate, Arterial 16.0(L) 20.0 - 26.0 mmol/L [facility] Base Excess, Arterial -9.8(L) -3.0 - 3.0 mmol/L [facility] Hgb Blood Gas 11.0(L) 11.7 - 15.5 g/dL [facility] Oxyhemoglobin, Arterial 89.8(L) 94.0 - 97.0 % [facility] Carboxyhemoglob in, Arterial 0.3 % [facility] Comment: Nonsmokers: 0.5-1.5% COHB Smokers: Variable, but usually less than 10% Toxic: 20-30% COHB Lethal: Greater than 60% COHB Methemoglobin, Arterial 0.7 <=1.5 % [facility] Na Whole Blood 131(L) 135 - 145 mmol/L [facility] K Whole Blood 4.2 3.5 - 5.0 mmol/L [facility] Comment: Please note: Patients with WBC >100,000 may have falsely elevated Potassium levels. Contact the Clinical Chemistry Laboratory if there are any questions. ICa Whole Blood 1.12(L) 1.15 - 1.33 mmol/L [facility] Comment: Note: ??Total bilirubin higher than 20 mg/dL may lead to falsely low ionized calcium. CL Whole Blood 100 98 - 107 mmol/L [facility] Gluc Whole Bld 160 65 - 199 mg/dL [facility] Comment:Diabetes: >=200 mg/d L plus symptoms. Lactate WB 2.7(H) 0.5 - 2.2 mmol/L [facility] Flow Art 5.0 LPM [facility] Blood 05/12/2023 3:18 AM EDT 05/12/2023 3:18 AM EDT Radha Hollins MD POINT OF CARE TEST ORDERABLES [facility] [place] [address] * (ABNORMAL) Coox2 (05/12/2023 1:14 AM EDT) pO2, Coox 28 mmHg [facility] Hgb Blood Gas 10.9(L) 11.7 - 15.5 g/dL [facility] Oxyhemoglobin, Coox 37.3 % [facility] Carboxyhemoglo bin, Coox 0.3 % [facility] Comment: Nonsmokers: 0.5-1.5% COHB Smokers: Variable, but usually less than 10% Toxic: 20-30% COHB Lethal: Greater than 60% COHB Methemoglobin, Coox 0.5 <=1.5 % [facility] Source Coox Mixed Venous [facility] Blood 05/12/2023 1:14 AM EDT 05/12/2023 1:14 AM EDT Radha Hollins MD POINT OF CARE TEST ORDERABLES [facility] [place] [address] * (ABNORMAL) BLOOD GAS 2 ARTERIAL (05/12/2023 1:06 AM EDT) pH, Arterial 7.34(L) 7.35 - 7.45 [facility] PCO2, Arterial 30(L) 35 - 45 mmHg [facility] PO2, Arterial 81(L) 85 - 104 mmHg [facility] Bicarbonate, Arterial 15.7(L) 20.0 - 26.0 mmol/L [facility] Base Excess, Arterial -10.1(L) -3.0 - 3.0 mmol/L [facility] Hgb Blood Gas 11.0(L) 11.7 - 15.5 g/dL [facility] Oxyhemoglobin, Arterial 92.3(L) 94.0 - 97.0 % [facility] Carboxyhemoglob in, Arterial 0.2 % [facility] Comment: Nonsmokers: 0.5-1.5% COHB Smokers: Variable, but usually less than 10% Toxic: 20-30% COHB Lethal: Greater than 60% COHB Methemoglobin, Arterial 0.6 <=1.5 % [facility] Na Whole Blood 131(L) 135 - 145 mmol/L [facility] K Whole Blood 4.2 3.5 - 5.0 mmol/L [facility] Comment: Please note: Patients with WBC >100,000 may have falsely elevated Potassium levels. Contact the Clinical Chemistry Laboratory if there are any questions. ICa Whole Blood 1.13(L) 1.15 - 1.33 mmol/L [facility] Comment: Note: ??Total bilirubin higher than 20 mg/dL may lead to falsely low ionized calcium. CL Whole Blood 99 98 - 107 mmol/L [facility] Gluc Whole Bld 132 65 - 199 mg/dL [facility] Comment:Diabetes: >=200 mg/d L plus symptoms. Lactate WB 2.7(H) 0.5 - 2.2 mmol/L [facility] Flow Art 5.0 LPM [facility] Blood 05/12/2023 1:06 AM EDT 05/12/2023 1:06 AM EDT Radha Hollins MD POINT OF CARE TEST ORDERABLES [facility] [place] [address] * (ABNORMAL) Differential, Automated (05/12/2023 1:05 AM EDT) Neutrophil % 83.3 % [facility] Neutrophil Absolute 7.49(H) 1.70 - 6.10 x10(3)/mc L [facility] Lymph % 7.1 % [facility] Lymphocytes Abs 0.6(L) 0.9 - 3.2 x10(3)/mc L [facility] Monocyte % 8.9 % [facility] Monocyte Abs 0.8 0.3 - 0.9 x10(3)/mc L [facility] Eos % 0.0 % [facility] Eosinophils Abs 0.0 0.0 - 0.4 x10(3)/mc L [facility] Basophil % 0.1 % [facility] Baso Absolute 0.0 0.0 - 0.1 x10(3)/mc L [facility] Immature Gran % 0.60 % [facility] Comment: Immature granulocytes(IG's)percentage and absolute count will include metamyelocytes, myelocytes, and promyelocytes. Blood smears from CBCs yielding IG's will be scanned manually for concordance. If this scan disagrees with the automated IG or if promyelocytes are noted, a manual differential will be performed. Immature Gran Absolute 0.05(H) 0.00 - 0.04 x10(3)/mc L [facility] Blood 05/12/2023 1:05 AM EDT 05/12/2023 1:15 AM EDT Narrative Resulting Agency Comment Spec In Lab Gianni Fletcher MD HEMATOLOGY ORDERABLE S [facility] [place] [address] * (ABNORMAL) Hemogram (05/12/2023 1:05 AM EDT) White Blood Cell 9.0 4.0 - 9.5 x10(3)/mc L [facility] Red Blood Cell 3.01(L) 4.00 - 5.21 x10(6)/mc L [facility] Hemoglobin 9.8(L) 11.7 - 15.5 g/dL [facility] Hematocrit 28.7(L) 35.7 - 45.8 % [facility] Mean Cell Volume 95.3(H) 82.6 - 94.4 fL [facility] Mean Cell Hemoglobin 32.6(H) 27.1 - 32.0 pg [facility] Mean Cell Hemoglobin Concentration 34.1 31.7 - 35.0 g/dL [facility] Platelet 186 145 - 357 x10(3)/mc L [facility] RDW Standard Deviation 43.7 37.0 - 46.0 fL [facility] RDW coefficient of variation 12.7 11.5 - 14.1 % [facility] Mean Platelet Volume 10.3 7.6 - 12.9 fL [facility] NRBC% auto 0.0 % [facility] NRBC Absolute 0.000 0.000 - 0.000 x10(3)/mc L [facility] Blood 05/12/2023 1:05 AM EDT 05/12/2023 1:15 AM EDT Narrative Resulting Agency Comment Spec In Lab Gianni Fletcher MD HEMATOLOGY ORDERABLE S [facility] [place] [address] * (ABNORMAL) Comprehensive metabolic panel (non-fasting) (05/12/2023 1:05 AM EDT) Glucose 141 65 - 199 mg/dL [facility] Comment:Diabetes: >=200 mg/d L plus symptoms Blood Urea Nitrogen 63(H) 8 - 18 mg/dL [facility] Creatinine 1.86(H) 0.70 - 1.20 mg/dL [facility] Sodium 131(L) 135 - 145 mmol/L [facility] Potassium 4.4 3.5 - 5.0 mmol/L [facility] Comment: Please note: ??Patients with WBC >100,000 may have falsely elevated Potassium levels. ??For accurate Potassium quantification in these patients send serum separator tube (gold top) for subsequent determinations. ??Contact the Clinical Chemistry Laboratory if there are any questions. Chloride 96(L) 98 - 107 mmol/L [facility] Carbon Dioxide 14(L) 22 - 31 mmol/L [facility] Anion Gap 21(H) 5 - 15 mmol/L [facility] Calcium 9.0 8.5 - 10.5 mg/dL [facility] Protein, Total 6.6 6.1 - 8.0 g/dL [facility] Albumin 3.9 3.2 - 5.2 g/dL [facility] Aspartate Aminotransferase 1,227(H) 0 - 30 unit/L [facility] Alanine Aminotransferase 1,097(H) 0 - 30 unit/L [facility] Alkaline Phosphatase 108(H) 35 - 105 unit/L [facility] Bilirubin, Total 1.0 0.2 - 1.3 mg/dL [facility] Est Glomerular Filtration Rate 29(L) >=60 mL/min/1. 73 m?? [facility] Comment: This patient's [...] Lab Radha Hollins MD CHEMISTRY ORDERABL ES [facility] [place] [address] * XR Chest One View (05/12/2023 1:00 [...] have questions please contact the health healthcare financial analyst that requested your imaging first. ? Narrative [...] who have questions please contactthe health healthcare financial analyst that requested your imaging first. Radha Hollins MD IMG DX ORDERABLES * (ABNORMAL) Coox2 (05/12/2023 12:30 AM EDT) pO2, Coox 22 mmHg [facility] Hgb Blood Gas 10.9(L) 11.7 - 15.5 g/dL [facility] Oxyhemoglobin, Coox 25.1 % [facility] Carboxyhemoglo bin, Coox 0.3 % [facility] Comment: Nonsmokers: 0.5-1.5% COHB Smokers: Variable, but usually less than 10% Toxic: 20-30% COHB Lethal: Greater than 60% COHB Methemoglobin, Coox 1.4 <=1.5 % [facility] Source Coox Mixed Venous [facility] Blood 05/12/2023 12:3 0 AM EDT 05/12/2023 12:30 AM EDT Radha Hollins MD POINT OF CARE TEST ORDERABLES [facility] [address] [facility] [address] [place] [address] * XR Chest One View (05/11/2023 11:45 [...] have questions please contact the health healthcare financial analyst that requested your imaging first. ? Narrative [...] who have questions please contactthe health healthcare financial analyst that requested your imaging first. Radha Hollins MD IMG DX ORDERABLES * (ABNORMAL) Lactate, whole blood, send to lab ([facility]) (05/11/2023 7:40 PM EDT) Lactate WB 4.8(Critic al) 0.5 - 2.2 mmol/L [facility] Comment:Called by: [facility], Read back by: Magdalena Baires, Date/Time:05/11/23 19:54. Blood 05/11/2023 7:40 PM EDT 05/11/2023 7:49 PM EDT Narrative Resulting Agency Comment Spec In Lab Radha Hollins MD CHEMISTRY ORDERABL ES Performing Organization Address [facility]/ZIP Co de Phone Number [facility] [place] [address] * Urine culture (05/11/2023 7:22 PM EDT) Pathologist [facility] Urine Culture 50,000-99,000 cfu/ml Normal mucosal herman Susceptibilit y testing not routinely performed for Coagulase Negative Staphylococcu s species and other Gram Positive organisms from urine. [facility] Clean Catch Urine 05/11/2023 7:22 PM EDT 05/11/2023 8:50 PM EDT Narrative Resulting Agency Comment Spec In Lab Brody Dale Eusebio OSBORN MICROBIOLOGY - GENE RAL ORDERABLES Performing Organization Address [facility] Co de Phone Number [facility] [place] [address] * (ABNORMAL) Urinalysis Microscopic Exam (05/11/2023 7:22 PM EDT) Pathologist [facility] RBC, Urine 2 0 - 4 /HPF [facility] WBC, Urine >100(H) 0 - 5 /HPF [facility] Bacteria, Urine Occasional (A) None /HPF [facility] Squamous Epithelial Cells Raw Data, Urine 5(H) <=4 /HPF [facility] Hyaline Casts, Urine 3(H) 0 - 2 /LPF [facility] Clean Catch Urine 05/11/2023 7:22 PM EDT 05/11/2023 7:31 PM EDT Narrative Resulting Agency Comment Spec In Lab Brody Elvia Eusebio LEMAN URINE ORDERABLES Performing Organization Address [facility]/ZIP Co de Phone Number [facility] [place] [address] * (ABNORMAL) Urinalysis with reflex Culture (05/11/2023 7:22 PM EDT) Glucose, Urine Dipstick Negative Negative mg/dL [facility] Protein, Urine Dipstick Trace(A) Negative mg/dL [facility] Bilirubin, Urine Dipstick Negative Negative mg/dL [facility] Comment: Clinical correlation required for positive Urine Bilirubin results as false positive may occur with some drugs and drug related products. If a false positive is suspected a serum total bilirubin should be considered if clinically indicated. Urobilinogen, Urine Dipstick Normal Normal mg/dL [facility] pH, Urn (dipstick) 5.0 5.0 - 8.0 [facility] Blood, Urine Dipstick Trace(A) Negative mg/dL [facility] Ketone, Urine Dipstick Negative Negative mg/dL [facility] Nitrite, Urine Dipstick Negative Negative [facility] Leukocytes, Urine Dipstick Moderate(A) Negative mcL [facility] Appearance, Urine Dipstick Cloudy(A) Clear [facility] Specific [place] Urine Automated >=1.030(A) 1.005 - 1.030 [facility] Color, Urine Dipstick Yellow Yellow [facility] Reflex to Culture Yes [facility] Clean Catch Urine 05/11/2023 7:22 PM EDT 05/11/2023 7:31 PM EDT Narrative Resulting Agency Comment Spec In Lab Brody Kaplan APRN URINE ORDERABLES Performing Organization Address [facility]/ZIP Co de Phone Number [facility] [place] [address] * (ABNORMAL) pro-Brain Natriuretic Peptide (05/11/2023 7:11 PM EDT) NT-proBNP >35,000(H) <=124 pg/mL [facility] Blood 05/11/2023 7:11 PM EDT 05/11/2023 7:26 PM EDT Narrative Resulting Agency Comment Spec In Lab Radha Hollins MD CHEMISTRY ORDERABL ES Performing Organization Address City/[facility]/ZIP Co de Phone Number [facility] [place] [address] * (ABNORMAL) Lactate, whole blood, send to lab ([facility]) (05/11/2023 2:47 PM EDT) Lactate WB 2.9(H) 0.5 - 2.2 mmol/L [facility] Blood 05/11/2023 2:47 PM EDT 05/11/2023 2:53 PM EDT Narrative Resulting Agency Comment Spec In Lab Juan Luis Gonzalez MD CHEMISTRY ORDERABLES [facility] [place] [address] * (ABNORMAL) CT Angiogram Abdomen & Pelvis [...] have questions please contact the health healthcare financial analyst that requested your imaging first. ? Narrative [...] Agency Comment Unexpected Finding Antelmo Sharma MD IM CT ORDERABLES * CT Cardiac for Morphology [...] have questions please contact the health healthcare financial analyst that requested your imaging first. ? Electronically signed by: Cullen Narayanan MD, [facility] ([phone]), at 05/11/2023 4:37 PM Narrative 05/11/2023 4:37 [...] 610 mm2 Circumference: 88 mm Calcification: Mild Gflrtll-js-ytnqrtgo height: Left: 6.2 mm Right: 5.8 mm THORACIC AORTA Description: Normal course and caliber. ??Mild diffuse atherosclerotic changes. No acute aortopathy noted. Foreign [employer]ic dimensions: Aortic root: 27.6 mm Max ascending aorta: 30.5 mm x 27.7 mm Suggested fluoroscopic angulation based on line extending through the nadirs of the three sinuses of Valsalva, set equidistant: ?? MALAGASY ??9 degrees; cranial 7 degrees MITRAL: Mitral [...] 610 mm2 Circumference: 88 mm Calcification: Mild Roigdoy-gp-qtmhxyju height: Left: 6.2 mm Right: 5.8 mm THORACIC AORTA Description: Normal course and caliber. Mild diffuse atheroscleroticchanges. No acute aortopathy noted. Foreign Car [employer]ic dimensions: Aortic root: 27.6 mm Max ascending aorta: 30.5 mm x 27.7 mm Suggested fluoroscopic angulation based on line extending through thenadirs of the three sinuses of Valsalva, set equidistant: MALAGASY 9 degrees; cranial 7 degrees MITRAL: Mitral [...] who have questions please contactthe health healthcare financial analyst that requested your imaging first. Electronically signed by: Cullen Narayanan MD, [facility]([phone]), at 05/11/2023 4:37 PM Antelmo Sharma MD IMG CT ORDERABLES * (ABNORMAL) Lactate, whole blood, send to lab ([facility]) (05/11/2023 9:29 AM EDT) Lactate WB 3.1(H) 0.5 - 2.2 mmol/L [facility] Blood 05/11/2023 9:29 AM EDT 05/11/2023 9:38 AM EDT Narrative Resulting Agency Comment Spec In Lab Juan Luis Gonzalez MD CHEMISTRY ORDERABLES [facility] [place] [address] * (ABNORMAL) Differential, Automated (05/11/2023 4:42 AM EDT) Neutrophil % 78.1 % [facility] Neutrophil Absolute 5.46 1.70 - 6.10 x10(3)/mc L [facility] Lymph % 10.6 % [facility] Lymphocytes Abs 0.7(L) 0.9 - 3.2 x10(3)/mc L [facility] Monocyte % 9.6 % [facility] Monocyte Abs 0.7 0.3 - 0.9 x10(3)/mc L [facility] Eos % 0.0 % [facility] Eosinophils Abs 0.0 0.0 - 0.4 x10(3)/mc L [facility] Basophil % 0.4 % [facility] Baso Absolute 0.0 0.0 - 0.1 x10(3)/mc L [facility] Immature Gran % 1.30 % [facility] Comment: Immature granulocytes(IG's)percentage and absolute count will include metamyelocytes, myelocytes, and promyelocytes. Blood smears from CBCs yielding IG's will be scanned manually for concordance. If this scan disagrees with the automated IG or if promyelocytes are noted, a manual differential will be performed. Immature Gran Absolute 0.09(H) 0.00 - 0.04 x10(3)/mc L [facility] Blood 05/11/2023 4:42 AM EDT 05/11/2023 4:49 AM EDT Narrative Resulting Agency Comment Spec In Lab Klaudia Reid MD HEMATOLOGY OR DERABLES Performing Organization Address City/[facility] Co de Phone Number [facility] [place] [address] * (ABNORMAL) Hemogram (05/11/2023 4:42 AM EDT) White Blood Cell 7.0 4.0 - 9.5 x10(3)/mc L [facility] Red Blood Cell 3.44(L) 4.00 - 5.21 x10(6)/[facility] Hemoglobin 11.1(L) 11.7 - 15.5 g/dL [facility] Hematocrit 32.7(L) 35.7 - 45.8 % [facility] Mean Cell Volume 95.1(H) 82.6 - 94.4 fL [facility] Mean Cell Hemoglobin 32.3(H) 27.1 - 32.0 pg [facility] Mean Cell Hemoglobin Concentration 33.9 31.7 - 35.0 g/dL [facility] Platelet 165 145 - 357 x10(3)/mc L [facility] RDW Standard Deviation 43.1 37.0 - 46.0 fL [facility] RDW coefficient of variation 12.7 11.5 - 14.1 % [facility] Mean Platelet Volume 10.1 7.6 - 12.9 fL [facility] NRBC% auto 0.0 % [facility] NRBC Absolute 0.000 0.000 - 0.000 x10(3)/ L [facility] Blood 05/11/2023 4:42 AM EDT 05/11/2023 4:49 AM EDT Narrative Resulting Agency Comment Spec In Lab Klaudia Reid MD HEMATOLOGY OR DERABLES Performing Organization Address [facility] Co de Phone Number [facility] [place] [address] * Heparin (unfractionated) Level (05/11/2023 4:42 AM EDT) UF Heparin 0.46 IU/mL [facility] Comment: Heparin [...] ORDERAB LES Performing Organization Address [facility] Co de Phone Number [facility] [place] [address] * (ABNORMAL) Comprehensive metabolic panel (non-fasting) (05/11/2023 4:42 AM EDT) Glucose 143 65 - 199 mg/dL [facility] Comment:Diabetes: >=200 mg/d L plus symptoms Blood Urea Nitrogen 42(H) 8 - 18 mg/dL [facility] Creatinine 1.24(H) 0.70 - 1.20 mg/dL [facility] Sodium 134(L) 135 - 145 mmol/L [facility] Potassium 4.6 3.5 - 5.0 mmol/L [facility] Comment: Please note: ??Patients with WBC >100,000 may have falsely elevated Potassium levels. ??For accurate Potassium quantification in these patients send serum separator tube (gold top) for subsequent determinations. ??Contact the Clinical Chemistry Laboratory if there are any questions. Chloride 99 98 - 107 mmol/L [facility] Carbon Dioxide 14(L) 22 - 31 mmol/L [facility] Anion Gap 21(H) 5 - 15 mmol/L [facility] Calcium 9.6 8.5 - 10.5 mg/dL [facility] Protein, Total 7.2 6.1 - 8.0 g/dL [facility] Albumin 3.7 3.2 - 5.2 g/dL [facility] Aspartate Aminotransferase 144(H) 0 - 30 unit/L [facility] Comment:result rechecked-ssc Alanine Aminotransferase 130(H) 0 - 30 unit/L [facility] Comment:result rechecked-[facility] Alkaline Phosphatase 72 35 - 105 unit/L [facility] Bilirubin, Total 0.8 0.2 - 1.3 mg/dL [facility] Est Glomerular Filtration Rate 48(L) >=60 mL/min/1. 73 m?? [facility] Comment: This patient's [...] Lab Radha Hollins MD CHEMISTRY ORDERABL ES [facility] [place] [address] * EKG 12 Lead (05/10/2023 1:16 PM EDT) Ventricular rate 118 BPM MUSE SYSTEM Atrial Rate 118 BPM MUSE SYSTEM P-R Interval 152 ms MUSE SYSTEM QRS Duration 104 ms MUSE SYSTEM Q-T Interval 316 ms MUSE SYSTEM QTC Calculated (Bezet) 442 ms MUSE SYSTEM Calculated P [place] 29 degrees MUSE SYSTEM Calculated R [place] 18 degrees MUSE SYSTEM Calculated T [place] -173 degrees MUSE SYSTEM INTERPRETATION Sinus tachycardia [...] Anterior leads Confirmed by MD Villareal Danette ([id number]) on 05/10/2023 8:47:46 PM MUSE SYSTEM 05/10/2023 1:16 PM EDT 05/10/2023 8:47 PM EDT Juan Luis Gonzalez MD ECG ORDERABLES MUSE SYSTEM * Lactate, whole blood, send to lab ([facility]) (05/10/2023 11:52 AM EDT) Lactate WB 1.8 0.5 - 2.2 mmol/L [facility] Blood 05/10/2023 11:5 2 AM EDT 05/10/2023 12:13 PM EDT Narrative Resulting Agency Comment Spec In Lab Juan Luis Gonzalez MD CHEMISTRY ORDERABLES [facility] [place] [address] * XR Chest One View (05/10/2023 11:16 [...] have questions please contact the health healthcare financial analyst that requested your imaging first. ? Electronically signed by: ALIX RUVALCABA MD, [facility] ([phone]), at 05/10/2023 1:25 PM Narrative 05/10/2023 1:25 [...] who have questions please contactthe health healthcare financial analyst that requested your imaging first. Juan Luis Gonzalez MD IMG DX ORDERABLES * EKG 12 Lead (05/10/2023 7:59 AM EDT) [facility] Ventricular rate 115 BPM MUSE SYSTEM Atrial Rate 115 BPM MUSE SYSTEM P-R Interval 142 ms MUSE SYSTEM QRS Duration 102 ms MUSE SYSTEM Q-T Interval 322 ms MUSE SYSTEM QTC Calculated (Bezet) 445 ms MUSE SYSTEM Calculated P [place] 36 degrees MUSE SYSTEM Calculated R [place] 28 degrees MUSE SYSTEM Calculated T [place] -119 degrees MUSE SYSTEM INTERPRETATION Sinus tachycardia [...] (ABNORMAL) Differential, Automated (05/10/2023 2:28 AM EDT) [facility] Neutrophil % 77.1 % [facility] Neutrophil Absolute 4.01 1.70 - 6.10 x10(3)/mc L [facility] Lymph % 14.0 % [facility] Lymphocytes Abs 0.7(L) 0.9 - 3.2 x10(3)/mc L [facility] Monocyte % 7.7 % [facility] Monocyte Abs 0.4 0.3 - 0.9 x10(3)/mc L [facility] Eos % 0.4 % [facility] Eosinophils Abs 0.0 0.0 - 0.4 x10(3)/mc L [facility] Basophil % 0.4 % [facility] Baso Absolute 0.0 0.0 - 0.1 x10(3)/mc L [facility] Immature Gran % 0.40 % [facility] Comment: Immature granulocytes(IG's)percentage and absolute count will include metamyelocytes, myelocytes, and promyelocytes. Blood smears from CBCs yielding IG's will be scanned manually for concordance. If this scan disagrees with the automated IG or if promyelocytes are noted, a manual differential will be performed. Immature Gran Absolute 0.02 0.00 - 0.04 x10(3)/[facility] Blood 05/10/2023 2:28 AM EDT 05/10/2023 2:57 AM EDT Narrative Resulting Agency Comment Spec In Lab Klaudia Reid MD HEMATOLOGY OR DERABLES [facility] [place] [address] * (ABNORMAL) Hemogram (05/10/2023 2:28 AM EDT) White Blood Cell 5.2 4.0 - 9.5 x10(3)/[facility] LABORATORY Red Blood Cell 3.11(L) 4.00 - 5.21 x10(6)/[facility] LABORATORY Hemoglobin 10.2(L) 11.7 - 15.5 g/dL [facility] Hematocrit 30.2(L) 35.7 - 45.8 % [facility] Mean Cell Volume 97.1(H) 82.6 - 94.4 fL [facility] Mean Cell Hemoglobin 32.8(H) 27.1 - 32.0 pg [facility] Mean Cell Hemoglobin Concentration 33.8 31.7 - 35.0 g/dL [facility] Platelet 151 145 - 357 x10(3)/[facility] LABORATORY RDW Standard Deviation 44.9 37.0 - 46.0 fL [facility] RDW coefficient of variation 12.8 11.5 - 14.1 % [facility] Mean Platelet Volume 9.8 7.6 - 12.9 fL [facility] NRBC% auto 0.0 % [facility] LAB[facility] NRBC Absolute 0.000 0.000 - 0.000 x10(3)/[facility] LABORATORY Blood 05/10/2023 2:28 AM EDT 05/10/2023 2:57 AM EDT Narrative Resulting Agency Comment Spec In Lab Klaudia Reid MD HEMATOLOGY OR DERABLES [facility] [place] [address] * (ABNORMAL) Comprehensive metabolic panel (non-fasting) (05/10/2023 2:28 AM EDT) Glucose 100 65 - 199 mg/dL [facility] Comment:Diabetes: >=200 mg/d L plus symptoms Blood Urea Nitrogen 30(H) 8 - 18 mg/dL [facility] Creatinine 0.90 0.70 - 1.20 mg/dL [facility] Sodium 134(L) 135 - 145 mmol/L [facility] Potassium 4.1 3.5 - 5.0 mmol/L [facility] Comment: Please note: ??Patients with WBC >100,000 may have falsely elevated Potassium levels. ??For accurate Potassium quantification in these patients send serum separator tube (gold top) for subsequent determinations. ??Contact the Clinical Chemistry Laboratory if there are any questions. Chloride 102 98 - 107 mmol/L [facility] Carbon Dioxide 20(L) 22 - 31 mmol/L [facility] Anion Gap 12 5 - 15 mmol/L [facility] Calcium 9.3 8.5 - 10.5 mg/dL [facility] Protein, Total 6.4 6.1 - 8.0 g/dL [facility] Albumin 3.7 3.2 - 5.2 g/dL [facility] Aspartate Aminotransferase 24 0 - 30 unit/L [facility] Alanine Aminotransferase 14 0 - 30 unit/L [facility] Alkaline Phosphatase 70 35 - 105 unit/L [facility] Bilirubin, Total 0.5 0.2 - 1.3 mg/dL [facility] Est Glomerular Filtration Rate 70 >=60 mL/min/1. 73 m?? [facility] Comment: This patient's [...] MD CHEMISTRY ORDERABL ES Performing Organization Address [facility] [place] [address] * Heparin (unfractionated) Level (05/10/2023 2:28 AM EDT) UF Heparin 0.37 IU/mL [facility]ORAT[facility] Comment: Heparin [...] ORDERAB LES Performing Organization Address [facility]/ZIP Co de Phone Number [facility] [place] [address] * (ABNORMAL) Differential, Automated (05/09/2023 4:00 AM EDT) Neutrophil % 81.7 % [facility] Neutrophil Absolute 5.26 1.70 - 6.10 x10(3)/mc L [facility] Lymph % 10.7 % [facility] Lymphocytes Abs 0.7(L) 0.9 - 3.2 x10(3)/[facility] LABORATORY Monocyte % 6.5 % [facility] Monocyte Abs 0.4 0.3 - 0.9 x10(3)/[facility] LABORATORY Eos % 0.5 % [facility] LAB[facility]ORY Eosinophils Abs 0.0 0.0 - 0.4 x10(3)/[facility] LABORATORY Basophil % 0.3 % [facility] Baso Absolute 0.0 0.0 - 0.1 x10(3)/[facility] LABORATORY Immature Gran % 0.30 % [facility] Comment: Immature granulocytes(IG's)percentage and absolute count will include metamyelocytes, myelocytes, and promyelocytes. Blood smears from CBCs yielding IG's will be scanned manually for concordance. If this scan disagrees with the automated IG or if promyelocytes are noted, a manual differential will be performed. Immature Gran Absolute 0.02 0.00 - 0.04 x10(3)/ L [facility] Blood 05/09/2023 4:00 AM EDT 05/09/2023 4:19 AM EDT Narrative Resulting Agency Comment Spec In Lab Klaudia Reid MD HEMATOLOGY OR DERABLES [facility] [place] [address] * (ABNORMAL) Hemogram (05/09/2023 4:00 AM EDT) White Blood Cell 6.4 4.0 - 9.5 x10(3)/[facility] LABORATORY Red Blood Cell 3.15(L) 4.00 - 5.21 x10(6)/[facility] LABORATORY Hemoglobin 10.2(L) 11.7 - 15.5 g/dL [facility] Hematocrit 30.3(L) 35.7 - 45.8 % [facility] Mean Cell Volume 96.2(H) 82.6 - 94.4 fL [facility] Mean Cell Hemoglobin 32.4(H) 27.1 - 32.0 pg [facility] Mean Cell Hemoglobin Concentration 33.7 31.7 - 35.0 g/dL [facility] Platelet 151 145 - 357 x10(3)/mc L [facility] RDW Standard Deviation 44.7 37.0 - 46.0 fL [facility] RDW coefficient of variation 12.8 11.5 - 14.1 % [facility] Mean Platelet Volume 9.4 7.6 - 12.9 fL [facility] NRBC% auto 0.0 % [facility] NRBC Absolute 0.000 0.000 - 0.000 x10(3)/mc L [facility] Blood 05/09/2023 4:00 AM EDT 05/09/2023 4:19 AM EDT Narrative Resulting Agency Comment Spec In Lab Klaudia Reid MD HEMATOLOGY OR DERABLES Performing Organization Address City/State/[facility] Co de Phone Number [facility] [place] [address] * Heparin (unfractionated) Level (05/09/2023 4:00 AM EDT) UF Heparin 0.47 IU/mL [facility] Comment: Heparin (anti-Xa) levels should be [...] Lab Radha Hollins MD HEMATOLOGY ORDERAB LES [facility] [place] [address] * (ABNORMAL) Comprehensive metabolic panel (non-fasting) (05/09/2023 4:00 AM EDT) Glucose 108 65 - 199 mg/dL [facility] Comment:Diabetes: >=200 mg/d L plus symptoms Blood Urea Nitrogen 31(H) 8 - 18 mg/dL [facility] Creatinine 1.03 0.70 - 1.20 mg/dL [facility] Sodium 137 135 - 145 mmol/L [facility] Potassium 4.4 3.5 - 5.0 mmol/L [facility] Comment: Please note: ??Patients with WBC >100,000 may have falsely elevated Potassium levels. ??For accurate Potassium quantification in these patients send serum separator tube (gold top) for subsequent determinations. ??Contact the Clinical Chemistry Laboratory if there are any questions. Chloride 102 98 - 107 mmol/L [facility] Carbon Dioxide 20(L) 22 - 31 mmol/L [facility] Anion Gap 15 5 - 15 mmol/L [facility] Calcium 9.3 8.5 - 10.5 mg/dL [facility] Protein, Total 6.6 6.1 - 8.0 g/dL [facility] Albumin 3.8 3.2 - 5.2 g/dL [facility] Aspartate Aminotransferase 32(H) 0 - 30 unit/L [facility] Alanine Aminotransferase 18 0 - 30 unit/L [facility] Alkaline Phosphatase 78 35 - 105 unit/L [facility] Bilirubin, Total 0.5 0.2 - 1.3 mg/dL [facility] Est Glomerular Filtration Rate 60 >=60 mL/min/1. 73 m?? [facility] Comment: This patient's [...] MD CHEMISTRY ORDERABL ES Performing Organization Address [facility] Co de Phone Number [facility] [place] [address] * (ABNORMAL) pro-Brain Natriuretic Peptide (05/08/2023 4:00 PM EDT) NT-proBNP 25,503(H) <=124 pg/mL [facility] Blood Venous Draw / Unknown 05/08/2023 4:00 PM EDT 05/08/2023 4:25 PM EDT Narrative Resulting Agency Comment Spec In Lab Juan Luis Gonzalez MD CHEMISTRY ORDERABLES Performing Organization Address [facility] Co de Phone Number [facility] [place] [address] * Magnesium (05/08/2023 4:00 PM EDT) Magnesium 0.82 0.69 - 1.07 mmol/L [facility] Blood 05/08/2023 4:00 PM EDT 05/08/2023 4:06 PM EDT Narrative Resulting Agency Comment Spec In Lab Enrique Chua MD CHEMISTRY ORDERABLES Performing Organization Address [facility] Co de Phone Number [facility] [place] [address] * Potassium (05/08/2023 4:00 PM EDT) Potassium 3.9 3.5 - 5.0 mmol/L [facility] Comment: Please note: [...] MD CHEMISTRY ORDERABL ES Performing Organization Address [facility] Co de Phone Number [facility] [place] [address] * Heparin (unfractionated) Level (05/08/2023 4:00 PM EDT) Pathologist [facility] UF Heparin 0.43 IU/mL [facility] Comment: Heparin [...] ORDERAB LES Performing Organization Address [facility] Co de Phone Number [facility] [place] [address] * EKG 12 Lead (05/08/2023 3:51 PM EDT) Ventricular rate 98 BPM MUSE SYSTEM Atrial Rate 98 BPM MUSE SYSTEM P-R Interval 150 ms MUSE SYSTEM QRS Duration 102 ms MUSE SYSTEM Q-T Interval 358 ms MUSE SYSTEM QTC Calculated (Bezet) 457 ms MUSE SYSTEM Calculated P [place] 38 degrees MUSE SYSTEM Calculated R [place] 48 degrees MUSE SYSTEM Calculated T [place] -112 degrees MUSE SYSTEM INTERPRETATION Sinus rhythm with frequent and consecutive Premature ventricular and fusion complexes Septal infarct , age undetermined ST & T wave abnormality, consider anterolateral ischemia Abnormal ECG When compared with ECG of 09-NOV-2022 11:17, T wave inversion now evident in Anterolateral leads Confirmed by MD Harshil, Enrique Bell ([id number]) on 05/10/2023 8:11:46 AM MUSE SYSTEM 05/08/2023 3:51 PM EDT 05/10/2023 8:11 AM EDT Radha Hollins MD ECG ORDERABLES MUSE SYSTEM * (ABNORMAL) Differential, Automated (05/08/2023 11:38 AM EDT) Neutrophil % 71.3 % [facility] Neutrophil Absolute 2.91 1.70 - 6.10 x10(3)/mc L [facility] Lymph % 19.1 % [facility] Lymphocytes Abs 0.8(L) 0.9 - 3.2 x10(3)/mc L [facility] Monocyte % 9.0 % [facility] Monocyte Abs 0.4 0.3 - 0.9 x10(3)/mc L [facility] Eos % 0.2 % [facility] Eosinophils Abs 0.0 0.0 - 0.4 x10(3)/mc L [facility] Basophil % 0.2 % [facility] Baso Absolute 0.0 0.0 - 0.1 x10(3)/mc L [facility] Immature Gran % 0.20 % [facility] Comment: Immature granulocytes(IG's)percentage and absolute count will include metamyelocytes, myelocytes, and promyelocytes. Blood smears from CBCs yielding IG's will be scanned manually for concordance. If this scan disagrees with the automated IG or if promyelocytes are noted, a manual differential will be performed. Immature Gran Absolute 0.01 0.00 - 0.04 x10(3)/mc L [facility] Blood 05/08/2023 11:3 8 AM EDT 05/08/2023 11:44 AM EDT Narrative Resulting Agency Comment Spec In Lab Lincoln Sal MD HEMATOLOGY ORDERA BLES [facility] [place] [address] * (ABNORMAL) Hemogram (05/08/2023 11:38 AM EDT) White Blood Cell 4.1 4.0 - 9.5 x10(3)/mc L [facility] Red Blood Cell 3.05(L) 4.00 - 5.21 x10(6)/mc L [facility] Hemoglobin 10.2(L) 11.7 - 15.5 g/dL [facility] Hematocrit 29.6(L) 35.7 - 45.8 % [facility] Mean Cell Volume 97.0(H) 82.6 - 94.4 fL [facility] Mean Cell Hemoglobin 33.4(H) 27.1 - 32.0 pg [facility] Mean Cell Hemoglobin Concentration 34.5 31.7 - 35.0 g/dL [facility] Platelet 136(L) 145 - 357 x10(3)/mc L [facility] RDW Standard Deviation 44.3 37.0 - 46.0 fL [facility] RDW coefficient of variation 12.6 11.5 - 14.1 % [facility] Mean Platelet Volume 9.4 7.6 - 12.9 fL [facility] NRBC% auto 0.0 % [facility] NRBC Absolute 0.000 0.000 - 0.000 x10(3)/mc L [facility] Blood 05/08/2023 11:3 8 AM EDT 05/08/2023 11:44 AM EDT Narrative Resulting Agency Comment Spec In Lab Lincoln Sal MD HEMATOLOGY ORDERA BLES [facility] [place] [address] * TSH (05/08/2023 11:38 AM EDT) Thyroid Stimulating Hormone 1.27 0.27 - 4.20 mcIU/mL [facility] Comment: Reference Interval (mcIU/mL): Females: ??First Trimester: 0.23-3.88 ??Second Trimester: 0.22-3.90 ??Third Trimester: 0.44-4.66 Blood 05/08/2023 11:3 8 AM EDT 05/08/2023 11:44 AM EDT Narrative Resulting Agency Comment Spec In Lab Enrique Chua MD CHEMISTRY ORDERABLES Performing Organization Address City/[facility] Co de Phone Number [facility] [place] [address] * (ABNORMAL) Phosphorus (05/08/2023 11:38 AM EDT) Phosphorus 4.7(H) 2.5 - 4.5 mg/dL [facility] Blood 05/08/2023 11:3 8 AM EDT 05/08/2023 11:44 AM EDT Narrative Resulting Agency Comment Spec In Lab Enrique Chua MD CHEMISTRY ORDERABLES Performing Organization Address [facility] Co de Phone Number [facility] [place] [address] * Magnesium (05/08/2023 11:38 AM EDT) Magnesium 0.76 0.69 - 1.07 mmol/L [facility] Blood 05/08/2023 11:3 8 AM EDT 05/08/2023 11:44 AM EDT Narrative Resulting Agency Comment Spec In Lab Enrique Chua MD CHEMISTRY ORDERABLES Performing Organization Address [facility] Co de Phone Number [facility] [place] [address] * (ABNORMAL) Basic Metabolic Panel (non-fasting) (05/08/2023 11:38 AM EDT) Glucose 97 65 - 199 mg/dL [facility] Comment:Diabetes: >=200 mg/d L plus symptoms Blood Urea Nitrogen 27(H) 8 - 18 mg/dL [facility] Creatinine 1.02 0.70 - 1.20 mg/dL [facility] Sodium 139 135 - 145 mmol/L [facility] Potassium 4.2 3.5 - 5.0 mmol/L [facility] Comment: Please note: ??Patients with WBC >100,000 may have falsely elevated Potassium levels. ??For accurate Potassium quantification in these patients send serum separator tube (gold top) for subsequent determinations. ??Contact the Clinical Chemistry Laboratory if there are any questions. Chloride 105 98 - 107 mmol/L [facility] Carbon Dioxide 20(L) 22 - 31 mmol/L [facility] Anion Gap 14 5 - 15 mmol/L [facility] Calcium 9.4 8.5 - 10.5 mg/dL [facility] Est Glomerular Filtration Rate 60 >=60 mL/min/1. 73 m?? [facility] Comment: This patient's [...] Chua MD CHEMISTRY ORDERABLES Performing Organization Address City/State/[facility] Co de Phone Number [facility] [place] [address] * ECHO COMPLETE (05/08/2023 11:02 AM EDT) EF 25 [employer] SYSTEM Anatomical Region Laterality Modality Cardiac Other 05/08/2023 10:0 3 AM EDT Narrative 05/08/2023 11:51 AM EDT ? Echocardiogram Report Name: PURNIMA THACKER ?Study Date: 05/08/2023 10:03 AMBP: 92/64 mmHg ? Patient Location: [facility]^CV29^A : 1955 ? Height: 155 cm ? Account: [id number] Age: 67 yrs ? Weight: 78 kg [...] worsening stenosis. Mitral regurgitation is similar. Procedure Complete-74562. Satisfactory quality. There is normal sinus rhythm. [...] Echocardiogram Report Name: PURNIMA THACKER Study Date: 310:03 AMBP: 92/64 mmHg Patient Location:[facility]^CV29^A : 1955 Height: 155 cm Account: [id number] Age: 67 yrs Weight: 78 kg Gender: [...] suggestsworsening stenosis. Mitral regurgitation is similar. Procedure Complete-[id number]. Satisfactory quality. There is normal sinus rhythm. 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 Mild coronary artery disease by [facility] 11/09/2022 Mixed connective tissue disease Other [...] fraction Mild coronary artery disease by [facility] 11/09/2022 Stenosis of prosthetic aortic valve [...] Gallego, VALDO)2349 (Patch Removed - Provider: Favian Mckeon RN) [...] Mckeon, RN) 08 (Given - Provider: Kia Gallego RN) pantoprazole [...] 0832 (Given - Provider: Kia Gallego RN) 08 (Given - Provider: Kia Gallego, [...] 40 mEq, Oral, ONCE, 1 dose, On [facility] 05/20/23 at 0915, potassium chloride ER [...] VALDO)2012 (Given - Provider: Favian Mckeon RN) 08 (Given - Provider: Kia Gallego, VALDO) sodium chloride 0.9 % (flush) (BD PosiFlush Normal Saline 0.9) flush 5 mL 5 mL, Intravenous, EVERY 8 HOURS, First dose on 05/17/23 at 0930, Until Discontinued, Routine 0029 (Given - Provider: Maidy A Arillo, RN)0130 (Not Given - Provider: Favian Mckeon [...] Mckeon RN) 0832 (Given - Provider: Kia Gallego RN)2012 (Given [...] indicated., Routine 175 (Given - Provider: Gabino Calhoun, VALDO)2344 (Given - Provider: Petros Valiente RN) bisacodyL [...] post-op day 1 in the AM Give SC if unable to take PO, Routine Group [...] Routine documented in this encounter Care Teams Weatherization Field Technician Relationship Specialty Start Date End Date Magdalena Acosta MD [address] [place] [address] PCP - General Family Medicine 02/05/23 documented as of this encounter
--- OUTSIDE RECORDS SUMMARY | 2024-03-14 14:08 | XMS_ITS | Encounter Summary ---
[place] [address] Care Team Providers Care Make Up Arranger Name Role Phone Magdalena Acosta MD Primary Care Provider [phone] Encounter Details Date Type Department Care Team [...] PM EDT Office Visit Dermatology at [address] [place] [address] Marek Bonilla MD [address] [facility] [place] [address] documented as of this encounter Visit Diagnoses Not on filedocumented in this encounter Care Teams Make Up Arranger Relationship Specialty Start Date End Date Magdalena Acosta MD [address] [place] [address] PCP - General Family Medicine 02/05/23 documented as of this encounter
--- OUTSIDE RECORDS SUMMARY | 2024-03-14 14:08 | XMS_ITS | Encounter Summary ---
Author Organization [facility] [place] [address] Care Team Providers Care Assistant Director Name Role Phone Magdalena Acosta MD Primary Care Provider [phone] Encounter Details Date Type Department Care Team (Late st Contact Info) Description 05/08/2023 [place] [id number] Luis Felipe Ott MD [facility] [place] [address] Social History Tobacco Use Types Packs/Day Years [...] 0426 Referring Provider: Nitesh Baltazar Patient [facility]: [facility] Presenting Symptoms per OSH: [...] diuresis with IV furosemide 20 x 1 ([id number] at rheumatology appointment), SpO2 85% on RA -> 95% on 2L NC, HR 120s. Examination significant for decreased breath sounds at the bases. Pertinent Diagnostic Findings: CBC - Hgb 10.5 CMP - Cr 1.1 BNP 76399 HsTrop 1358 Lactate 1.6 D-dimer 1183, CTPE pending CXR demonstrated pulmonary vascular congestion US showed bilateral b lines Bedside echo reportedly similar to prior TTE for LV function OSH Interventions: ASA 324 Heparin gtt Plan: Transfer to [facility] Above recommendations/plans are based on my conversation with the referring provider. I have not personally interviewed or examined this patient. Luis Felipe Ott MD Compounding Technician Received a call from provider emergently at 715am. Mentating well and BP 87/53. HR 108 and diursingwell. They were about to start phenylephrine which I stressed was not a good option given concern for severe and increasing afterload. She is warm on exam, mentating and urinating and we do not need to amrit a BP if those things remain stable. Nico Segura, PGY-6 Compounding Technician [id number] documented in this encounter Plan of Treatment Upcoming Encounters Date Type Department Care Team (Late st Contact Info) Description 03/01/2025 4:15 PM EDT Office Visit Dermatology at [place] [address] [facility] [place] [address] Marek Bonilla MD [address] [place] [address] documented as of this encounter Visit Diagnoses Not on filedocumented in this encounter Care Teams Assistant Director Relationship Specialty Start Date End Date Magdalena Acosta MD [address] [place] [address] PCP - General Family Medicine 02/05/23 documented as of this encounter
--- OUTSIDE RECORDS SUMMARY | 2024-03-14 14:08 | XMS_ITS | Encounter Summary ---
[place] [address] Care Team Providers Care Apparel Embroidery Digitizer Name Role Phone Magdalena Acosta MD Primary Care Provider [phone] Encounter Details Date Type Department Care Team (Latest Contact Info) Description 03/18/2023 2:30 PM EDT Laboratory Appointment Lab [address] [phone] Positive FRANCISCO (antinuclear antibody) Social History Tobacco [...] Office Visit Dermatology at [place] [address] [place] [phone] Marek Bonilla MD [address], [place] [address] documented as of this encounter Procedures Procedure [...] 2:14 PM EDT Positive FRANCISCO (antinuclear antibody) CK Routine 03/18/2023 2:14 PM EDT Positive FRANCISCO (antinuclear antibody) COMPREHENSIVE METABOLIC PANEL Routine 03/18/2023 2:14 PM EDT Positive FRANCISCO (antinuclear antibody) documented in this encounter Results * (ABNORMAL) Differential, Automated (03/18/2023 2:14 PM EDT) Neutrophil % 71.2 % [facility] Neutrophil Absolute 2.26 1.70 - 6.10 x10(3)/mc L [facility] Lymph % 18.2 % [facility] Lymphocytes Abs 0.6(L) 0.9 - 3.2 x10(3)/mc L [facility] Monocyte % 9.7 % [facility] Monocyte Abs 0.3 0.3 - 0.9 x10(3)/mc L [facility] Eos % 0.3 % [facility] Eosinophils Abs 0.0 0.0 - 0.4 x10(3)/mc L [facility] Basophil % 0.6 % [facility] Baso Absolute 0.0 0.0 - 0.1 x10(3)/[facility] Immature Gran % 0.00 % [facility] Comment: Immature granulocytes(IG's)percentage and absolute count will include metamyelocytes, myelocytes, and promyelocytes. Blood smears from CBCs yielding IG's will be scanned manually for concordance. If this scan disagrees with the automated IG or if promyelocytes are noted, a manual differential will be performed. Immature Gran Absolute 0.00 0.00 - 0.04 x10(3)/[facility] Blood 03/18/2023 2:14 PM EDT 03/18/2023 2:24 PM EDT Narrative Resulting Agency Comment Spec In Lab Magdalena Peralta MD HEMATOLOGY ORDERABLE S Performing Organization Address City/State/[facility] Co de Phone Number [facility] [place] [place] [address] * (ABNORMAL) Hemogram (03/18/2023 2:14 PM EDT) White Blood Cell 3.2(L) 4.0 - 9.5 x10(3)/[facility] Red Blood Cell 3.44(L) 4.00 - 5.21 x10(6)/[facility] Hemoglobin 11.1(L) 11.7 - 15.5 g/dL [facility] Hematocrit 32.9(L) 35.7 - 45.8 % [facility] Mean Cell Volume 95.6(H) 82.6 - 94.4 fL [facility] Mean Cell Hemoglobin 32.3(H) 27.1 - 32.0 pg [facility] Mean Cell Hemoglobin Concentration 33.7 31.7 - 35.0 g/dL [facility] Platelet 144(L) 145 - 357 x10(3)/[facility] RDW Standard Deviation 42.6 37.0 - 46.0 fL [facility] RDW coefficient of variation 12.3 11.5 - 14.1 % [facility] Mean Platelet Volume 9.4 7.6 - 12.9 fL [facility] NRBC% auto 0.0 % [facility] NRBC Absolute 0.000 0.000 - 0.000 x10(3)/mc L [facility] Blood 03/18/2023 2:14 PM EDT 03/18/2023 2:24 PM EDT Narrative Resulting Agency Comment Spec In Lab Magdalena Peralta MD HEMATOLOGY ORDERABLE S Performing Organization Address [facility] Co de Phone Number [facility] [place] [address] * (ABNORMAL) Sedimentation rate (03/18/2023 2:14 PM EDT) Sedimentation Rate Automated 68(H) 2 - 39 mm/hr [facility] Comment: Effective July 12, 2019 new capillary photometric technology has resulted in a change in reference ranges. It is recommended that each ESR result be reviewed with its own age appropriate reference range. Blood 03/18/2023 2:14 PM EDT 03/18/2023 2:24 PM EDT Narrative Resulting Agency Comment Spec In Lab Kia Viramontes DO HEMATOLOGY ORDERAB LES Performing Organization Address [facility] Co de Phone Number [facility] [place] [place] [address] * CRP, acute inflammation (03/18/2023 2:14 PM EDT) C-Reactive Protein 3.0 <=4.9 mg/L [facility] Blood 03/18/2023 2:14 PM EDT 03/18/2023 2:24 PM EDT Narrative Resulting Agency Comment Spec In Lab Kia Viramontes DO CHEMISTRY ORDERABL ES Performing Organization Address [facility] Co de Phone Number [facility] [place] [place] [address] * C3 Complement (03/18/2023 2:14 PM EDT) Complement C3 142 90 - 180 mg/dL [facility] Blood 03/18/2023 2:14 PM EDT 03/18/2023 2:24 PM EDT Narrative Resulting Agency Comment Spec In Lab Kia Viramontes DO CHEMISTRY ORDERABL ES Performing Organization Address [facility] de Phone Number [facility] [place] [place] [address] * C4 Complement (03/18/2023 2:14 PM EDT) Complement C4 30 10 - 40 mg/dL [facility] Blood 03/18/2023 2:14 PM EDT 03/18/2023 2:24 PM EDT Narrative Resulting Agency Comment Spec In Lab Kia Viramontes DO CHEMISTRY ORDERABL ES Performing Organization Address [facility] de Phone Number [facility] [place] [place] [address] * CK (03/18/2023 2:14 PM EDT) Creatine Kinase 38 0 - 160 unit/L [facility] Blood 03/18/2023 2:14 PM EDT 03/18/2023 2:24 PM EDT Narrative Resulting Agency Comment Spec In Lab Kia Viramontes DO CHEMISTRY ORDERABL ES Performing Organization Address [facility] de Phone Number [facility] [place] [address] * DNA Antibody (Double-Stranded) (03/18/2023 2:14 PM EDT) dsDNA Ab <0.6 <=15.0 IU/mL [facility] Comment: <10 negative 10-15 equivocal >15 positive This dsDNA antibody result was generated using a fluoroenzyme immunoassay on the [employer] 250 analyzer. This quantitative test is designed to detect IgG antibodies directed against double stranded DNA in human serum. The presence of antibodies that recognize dsDNA is a highly specific marker for systemic lupus erythematosus. Please note that as of 05/26/2022 that this testing is performed by the Special Chemistry Laboratory at [facility]. This change in testing location is associated with a change is testing method and reference intervals. Please review the results of this test in association with the posted reference intervals. Blood 03/18/2023 2:14 PM EDT 03/19/2023 7:19 AM EDT Narrative Resulting Agency Comment Spec In Lab Kia Viramontes DO LAB SEND OUT ORDER JODIE [facility] [place] [place] [address] * (ABNORMAL) FRANCISCO Ab by IFA (03/18/2023 2:14 PM EDT) FRANCISCO Ab Screen Test ? Result ?Flag ??Unit ??RefValue Antinuclear Ab, HEp-2 ?Positive 1:2560 ??@ ?<1:80 (Negative) ??Substrate, S ? ADDITIONAL INFORMATION --------- ?Method: Immunofluorescence using HEp-2 cellular substrate. ??FRANCISCO Titer: ? 1:2560 ??FRANCISCO Pattern: ? Speckled ?Test Performed by: ?[facility] ?[address] [place] [address] ?Paster Operator: Raymond Chaudhry M.D. Ph.D.; CLIA# [id number] ([id number]) [facility] Blood 03/18/2023 2:14 PM EDT 03/18/2023 3:02 PM EDT Narrative Resulting Agency Comment Spec In Lab Kia James Wander DO CHEMISTRY ORDERABL ES [facility] [place] [address] * Comprehensive metabolic panel (non-fasting) (03/18/2023 2:14 PM EDT) Glucose 93 65 - 199 mg/dL [facility] Comment:Diabetes: >=200 mg/d L plus symptoms Blood Urea Nitrogen 18 8 - 18 mg/dL [facility] Creatinine 0.99 0.70 - 1.20 mg/dL [facility] Sodium 141 135 - 145 mmol/L [facility] Potassium 4.5 3.5 - 5.0 mmol/L [facility] Comment: Please note: ??Patients with WBC >100,000 may have falsely elevated Potassium levels. ??For accurate Potassium quantification in these patients send serum separator tube (gold top) for subsequent determinations. ??Contact the Clinical Chemistry Laboratory if there are any questions. Chloride 106 98 - 107 mmol/L [facility] Carbon Dioxide 24 22 - 31 mmol/L [facility] Anion Gap 11 5 - 15 mmol/L [facility] Calcium 10.0 8.5 - 10.5 mg/dL [facility] Protein, Total 7.3 6.1 - 8.0 g/dL [facility] Albumin 4.3 3.2 - 5.2 g/dL [facility] Aspartate Aminotransferase 26 0 - 30 unit/L [facility] Alanine Aminotransferase 11 0 - 30 unit/L [facility] Alkaline Phosphatase 91 35 - 105 unit/L [facility] Bilirubin, Total 0.4 0.2 - 1.3 mg/dL [facility] Est Glomerular Filtration Rate 62 >=60 mL/min/1. 73 m?? [facility] Comment: This patient's estimated GFR was [...] DO CHEMISTRY ORDERABL ES Performing Organization Address City/State/[facility] [place] [address] documented in this encounter Visit Diagnoses Diagnosis Positive FRANCISCO (antinuclear antibody) Other and unspecified nonspecific immunological findings documented in this encounter Care Teams Apparel Embroidery Digitizer Relationship Specialty Start Date End Date Magdalena Acosta MD [address] [place] [address] PCP - General Family Medicine 02/05/23 documented as of this encounter
--- OUTSIDE RECORDS SUMMARY | 2024-03-14 14:08 | XMS_ITS | Encounter Summary ---
[place] [address] Care Team Providers Care Drafter Patent Name Role Phone Magdalena Acosta MD Primary Care Provider [phone] Reason for Visit * Reason Comments Skin Lesion Encounter Details Date Type Department Care Team (Late st Contact Info) Description 04/20/2023 10:00 AM EDT Office Visit Dermatology at [address] [address] Marek Bonilla MD [address] [facility], [place] [address] Seborrheic keratosis Social History Tobacco Use Types [...] cutaneous and ocular 3. Previously told by instructor flying that she had corneal tears from her [...] 4:15 PM EDT Office Visit Dermatology at [place] [address] [facility] [place] [address] Marek Bonilla MD [address], [place] [address] documented as of this encounter Visit Diagnoses Diagnosis Seborrheic keratosis Other seborrheic keratosis documented in this encounter Care Teams Drafter Patent Relationship Specialty Start Date End Date Magdalena Acosta MD [address] [place] [address] PCP - General Family Medicine 02/05/23 documented as of this encounter
--- OUTSIDE RECORDS SUMMARY | 2024-03-14 14:08 | XMS_ITS | Encounter Summary ---
Author Organization [facility] Address [facility] [place] [address] Care Team Providers Care Blood Bank Technician Name Role Phone Magdalena Acosta MD Primary Care Provider [phone] Encounter Details Date Type Department Care Team (Late st Contact Info) Description 04/27/2023 3:00 PM EDT Office [place] [address] Magdalena Peralta MD [facility] [place] [address] Mixed connective tissue disease Social History Tobacco [...] 1:5120 speckled; VIC negative; Myositis panel with HALL DIRECTOR ab 149.1 (positive); Anti U1RNP IgG 119; [...] 4:15 PM EDT Office Visit Dermatology at [place] [address] [facility] [place] [phone] Marek Bonilla MD [address] [facility] [place] [address] documented as of this encounter Visit Diagnoses Diagnosis Mixed connective tissue disease Other specified diffuse disease of connective tissue documented in this encounter Care Teams Blood Bank Technician Relationship Specialty Start Date End Date Magdalena Acosta MD [address] [place] [address] PCP - General Family Medicine 02/05/23 documented as of this encounter
--- OUTSIDE RECORDS SUMMARY | 2024-03-14 14:08 | XMS_ITS | Encounter Summary ---
Author Organization [facility] Address [facility] [place] [address] Care Team Providers Care Transportation Dispatch Manager Name Role Phone Magdalena Acosta MD Primary Care Provider [phone] Encounter Details Date Type Department Care Team (Late st Contact Info) Description 03/29/2023 Orders Only Cardiology at [address] [phone] Ranjan Delgado MD [facility] [place] [address] Severe aortic stenosis (Primary Dx) Social History [...] 4:15 PM EDT Office Visit Dermatology at [place] [address] [place] [phone] Marek Bonilla MD [address] [facility], [place] [address] Scheduled Orders Name Type Priority Associated Diagnoses [...] disorders documented in this encounter Care Teams Transportation Dispatch Manager Relationship Specialty Start Date End Date Magdalena Acosta MD [address] [place] [address] PCP - General Family Medicine 02/05/23 documented as of this encounter
--- OUTSIDE RECORDS SUMMARY | 2024-03-14 14:09 | XMS_ITS | Encounter Summary ---
[place] [address] Care Team Providers Care Four H Agent Name Role Phone Ashley Quirogazac Shields APRN Primary Care Provider [phone] Reason for Visit * Reason Comments Annual Exam Encounter Details Date Type Department Care Team (Late st Contact Info) Description 01/09/2022 3:15 PM EDT Office Visit Dermatology at [address] [address] Marek Bonilla MD [address] [facility] [address] [facility] DERMATOLOGY [place], [place] [phone] Rosacea Social History Tobacco Use Types Packs/Day [...] cutaneous and ocular 2. Previously told by lining vamper that she had corneal tears from her [...] refills. We will call this into her [facility] pharmacy in [place] 3. Continue metronidazole 0.75% gel applying every other day after washing as needed. We will give her 45 g with 5 refills. 4. Return to clinic in a year for repeat check CC: Deborah Quiroga APRN documented in this encounter Plan of Treatment Upcoming Encounters Date Type Department Care Team (Late st Contact Info) Description 03/01/2025 4:15 PM EDT Office Visit Dermatology at [place] [address] [facility] [place] [address] Marek Bonilla MD [address] [facility], [place] [address] documented as of this encounter Visit Diagnoses Diagnosis Rosacea documented in this encounter Care Teams Four H Agent Relationship Specialty Start Date End Date Deborah Quiroga APRN PCP - General Family Medicine 03/24/16 02/04/23 documented as of this encounter
--- OUTSIDE RECORDS SUMMARY | 2024-03-14 14:09 | XMS_ITS | Encounter Summary ---
Author Organization [facility] Address [facility] [place] [address] Care Team Providers Care Egg Grader Name Role Phone Junaid Deborah Shields APRN Primary Care Provider [phone] Encounter Details Date Type Department Care Team (Latest Contact Info) Description 06/22/2022 10:00 AM EST Office [place] [phone] Raymond Loredo MD [facility] [place] [address] Raynaud's phenomenon without gangrene; Positive FRANCISCO (antinuclear [...] can be done locally or here at [facility] that the current time is not particularly [...] for surgery by Dr. Rogers here at [facility]. In addition to painful dysesthesias in her [...] over radiocarpal or ulnocarpal joints. Hands: Normal district captain and claw. SJC/TJC 0/0. Knees: Decreased flexion [...] she can just reach out through my DH and I will arrange. Level 5 follow-up Raymond Loredo MD documented in this encounter Plan of Treatment Upcoming Encounters Date Type Department Care Team (Late st Contact Info) Description 03/01/2025 4:15 PM EDT Office Visit Dermatology at [place] [address] [facility] [place] [address] Marek Bonilla MD [address] [facility] [address] [place] [address] documented as of this encounter Visit Diagnoses Diagnosis Raynaud's phenomenon without gangrene Positive FRANCISCO (antinuclear antibody) Other and unspecified nonspecific immunological findings Primary osteoarthritis involving multiple joints Cervical disc disorder at C6-C7 level with radiculopathy documented in this encounter Care Teams Egg Grader Relationship Specialty Start Date End Date Deborah Quiroga APRN PCP - General Family Medicine 03/24/16 02/04/23 documented as of this encounter
--- OUTSIDE RECORDS SUMMARY | 2024-03-14 14:09 | XMS_ITS | Encounter Summary ---
[place] [address] Care Team Providers Care Sweatband Perforator Name Role Phone Magdalena Acosta MD Primary [...] PM EDT Office Visit Dermatology at [address] [place] [address] Marek Bonilla MD [address] [facility], [place] [address] documented as of this encounter Visit Diagnoses Not on filedocumented in this encounter Care Teams Sweatband Perforator Relationship Specialty Start Date End Date Magdalena Acosta MD [address] [place] [address] PCP - General Family Medicine 02/05/23 documented as of this encounter
--- OUTSIDE RECORDS SUMMARY | 2024-03-14 14:09 | XMS_ITS | Encounter Summary ---
[place] [address] Care Team Providers Care Deck Steward Name Role Phone Deborah Quiroga APRN Primary Care Provider [phone] Encounter Details Date Type Department Care Team (Late st Contact Info) Description 11/11/2020 Refill Dermatology at [address] [phone] Taylor Malone, BARREL REAMER Social History Tobacco Use Types Packs/Day Years [...] PM EDT Office Visit Dermatology at [address] [phone] Marek Bonilla MD [address] [facility], [place] [address] documented as of this encounter Visit Diagnoses Not on filedocumented in this encounter Care Teams Deck Steward Relationship Specialty Start Date End Date Deborah Quiroga APRN PCP - General Family Medicine 03/24/16 02/04/23 documented as of this encounter
--- OUTSIDE RECORDS SUMMARY | 2024-03-14 14:09 | XMS_ITS | Encounter Summary ---
[place] [address] Care Team Providers Care Forestry Support Specialist Name Role Phone Deborah Quiroga APRN Primary Care Provider [phone] Encounter Details Date Type Department Care Team (Late st Contact Info) Description 01/13/2021 Refill Dermatology at [address] [phone] Taylor Malone, MAINTENANCE DATA ANALYST Social History Tobacco Use Types Packs/Day Years [...] PM EDT Office Visit Dermatology at [address] [phone] Marek Bonilla MD [address] [facility], [place] [address] documented as of this encounter Visit Diagnoses Not on filedocumented in this encounter Care Teams Forestry Support Specialist Relationship Specialty Start Date End Date Deborah Quiroga APRN PCP - General Family Medicine 03/24/16 02/04/23 documented as of this encounter
--- OUTSIDE RECORDS SUMMARY | 2024-03-14 14:09 | XMS_ITS | Encounter Summary ---
Author Organization [facility] Address [facility] [place] [address] Care Team Providers Care Ethylene Oxide Panelboard Operator Name Role Phone Ashley Quirogazac Shields APRN Primary Care Provider [phone] Reason for Referral * Consultation (Routine) - Closed Specialty Diagnoses / Procedures Referred By Contac t Referred To Contact Neurology Diagnoses Neck pain Popeye Rogers MD [facility] [place] [address] Kyra Haas MD [facility] [address] [address] Referral ID Status Reason Start Date Expiration Date V isits Requested Visits Authorized [id number] Closed Consult, Test & Treat 06/29/2022 06/29/2023 1 1 Reason for Visit * Reason Comments Neck Pain Weak in both arms, p ain and tingling in arms and hands Encounter Details Date Type Department Care Team (Late st Contact Info) Description 06/29/2022 10:20 AM EST Office Visit [facility] [place] [address] Popeye Rogesr MD [facility] [place] [address] Neck pain Social History Tobacco Use Types [...] have EMG and nerve conduction studies in [place] that showed carpal tunnel syndrome. I do not have a copy of that report. documented in this encounter Plan of Treatment Upcoming Encounters Date Type Department Care Team (Late st Contact Info) Description 03/01/2025 4:15 PM EDT Office Visit Dermatology at [place] [address] [facility] [place] [address] Marek Bonilla MD [address], [place] [address] Scheduled Referrals Name Type Priority Associated Diagnoses Orde r Schedule Referral to Neurology Outpatient Referral Routine Neck pain Ordered: 06/29/2022 documented as of this encounter Visit Diagnoses Diagnosis Neck pain Cervicalgia documented in this encounter Care Teams Ethylene Oxide Panelboard Operator Relationship Specialty Start Date End Date Deborah Quiroga APRN PCP - General Family Medicine 03/24/16 02/04/23 documented as of this encounter
--- OUTSIDE RECORDS SUMMARY | 2024-03-14 14:09 | XMS_ITS | Encounter Summary ---
[place] [address] Care Team Providers Care Adjunct Professor Of English Name Role Phone Deborah Quiroga APRN Primary Care Provider [phone] Encounter Details Date Type Department Care Team [...] PM EDT Office Visit Dermatology at [address] [place] [address] Marek Bonilla MD [address] [facility] [address], [place] [address] documented as of this encounter Visit Diagnoses Not on filedocumented in this encounter Care Teams Adjunct Professor Of English Relationship Specialty Start Date End Date Deborah Quiroga APRN PCP - General Family Medicine 03/24/16 02/04/23 documented as of this encounter
--- OUTSIDE RECORDS SUMMARY | 2024-03-14 14:09 | XMS_ITS | Encounter Summary ---
[place] [address] Care Team Providers Care Clinic Physician Director Name Role Phone Deborah Quiroga APRN Primary Care Provider [phone] Encounter Details Date Type Department Care Team [...] PM EDT Office Visit Dermatology at [address] [place] [address] Marek Bonilla MD [address] [address], [place] [address] documented as of this encounter Visit Diagnoses Not on filedocumented in this encounter Care Teams Clinic Physician Director Relationship Specialty Start Date End Date Deborah Quiroga APRN PCP - General Family Medicine 03/24/16 02/04/23 documented as of this encounter
--- OUTSIDE RECORDS SUMMARY | 2024-03-14 14:09 | XMS_ITS | Encounter Summary ---
[place] [address] Care Team Providers Care Php Mysql Developer Name Role Phone Magdalena Acosta MD Primary Care Provider [phone] Reason for Visit * Reason Comments Suture / Staple Removal Encounter Details Date Type Department Care Team (Late st Contact Info) Description 02/16/2023 10:00 AM EDT Office Visit Dermatology at [place] [address] [facility] [place] [phone] Marek Bonilla MD [address] [facility], [place], [place] [phone] Visit for suture removal Social History Tobacco [...] 4:15 PM EDT Office Visit Dermatology at [place] [address] [facility] [place] [address] Marek Bonilla MD [address], [place] [address] documented as of this encounter Visit Diagnoses Diagnosis Visit for suture removal Encounter for removal of sutures documented in this encounter Care Teams Php Mysql Developer Relationship Specialty Start Date End Date Magdalena Acosta MD [address] [place] [address] PCP - General Family Medicine 02/05/23 documented as of this encounter
--- OUTSIDE RECORDS SUMMARY | 2024-03-14 14:09 | XMS_ITS | Encounter Summary ---
Author Organization [facility] Address [facility] [place] [address] Care Team Providers Care Hog Grader Name Role Phone Deborah Quiroga ANURAG Primary Care Provider [phone] Encounter Details Date Type Department Care Team (Late Contact Info) Description 02/07/2020 Telephone Hematology [place] [phone] Ellen Rios RN Social History Tobacco Use [...] 02/07/2020 12:59 PM EDT Message received from city secretary: Injection/Infusion Referral Services to be provided for pt are: CBC only at [facility]- Pt will go by 02/27 Orders faxed to [phone]). Spoke with pt. She will call [facility] directly to schedule a time that works for her. documented in this encounter Plan of Treatment Upcoming Encounters Date Type Department Care Team (Late Contact Info) Description 03/01/2025 4:15 PM EDT Office Visit Dermatology at [address] [address] Marek Bonilla MD [address] [address], [place] [address] documented as of this encounter Visit Diagnoses Not on filedocumented in this encounter Care Teams Hog Grader Relationship Specialty Start Date End Date Deborah Quiroga APRN PCP - General Family Medicine 03/24/16 02/04/23 documented as of this encounter
--- OUTSIDE RECORDS SUMMARY | 2024-03-14 14:09 | XMS_ITS | Encounter Summary ---
[place] [address] Care Team Providers Care Tax Adjuster Name Role Phone Deborah Quiroga APRN Primary Care Provider [phone] Encounter Details Date Type Department Care Team (Late st Contact Info) Description 03/04/2020 External Results Hematology [place] [address] Theroux, Bhumi Cornelius Social History Tobacco Use [...] 4:15 PM EDT Office Visit Dermatology at [place] [address] [facility] [place] [phone] Marek Bonilla MD [address] [facility] [address] [address], [place] [address] documented as of this encounter Procedures Procedure [...] Provider CHEMISTRY ORDERAB LES Performing Organization Address City/[facility]/ZIP Co de Phone Number EXTERNAL LAB [...] Provider CHEMISTRY ORDERAB LES Performing Organization Address City/[facility]/ZIP Co de Phone Number EXTERNAL LAB [...] 02/28/2020 7:45 AM EDT Historical Provider HEMATOLOGY ORDERA BLES EXTERNAL LAB documented in this encounter Visit Diagnoses Not on filedocumented in this encounter Care Teams Tax Adjuster Relationship Specialty Start Date End Date Deborah Quiroga, DIE CUTTER PCP - General Family Medicine 03/24/16 02/04/23 documented as of this encounter
--- OUTSIDE RECORDS SUMMARY | 2024-03-14 14:09 | XMS_ITS | Encounter Summary ---
[place] [address] Care Team Providers Care Piano Case And Bench Assembler Name Role Phone Deborah Quiroga APRN Primary Care Provider [phone] Encounter Details Date Type Department Care Team (Late st Contact Info) Description 06/05/2021 Interpretation Only [address] [address] Deborah Quiroga BIODIESEL ENGINEERING MANAGER [address] [address] Social History Tobacco Use Types Packs/Day Years [...] 4:15 PM EDT Office Visit Dermatology at [place] [address] [place] [address] Marek Bonilla MD [address] [facility], [place] [address] documented as of this encounter Procedures Procedure Name Priority Date/Time Associated Diagnosis Comments MAMMO SCREENING CAD BILATERAL Routine 06/05/2021 11:42 AM EDT documented in this encounter Results * Mammo Screening Cad Bilateral (06/05/2021 11:42 AM EDT) PT CLASS O DH RAD ADMITDTTM DH RAD PT RAD INFO [id number]^EV ERETT^DEBORAH^E DH RAD EXAM DESC MADDSC^SCREEN MAMMO [...] ? Electronically signed by: Rocael Villatoro MD, Radiology [place] ([phone]), at 06/05/2021 1:27 PM Narrative 06/05/2021 1:27 [...] Rocael Villatoro MD, [facility]([phone]), at 06/05/2021 1:27 PM Deborah Quiroga APRN IMGerman MAMMO ORDERABLE S documented in this encounter Visit Diagnoses Not on filedocumented in this encounter Care Teams Piano Case And Bench Assembler Relationship Specialty Start Date End Date Deborah Quiroga APRN PCP - General Family Medicine 03/24/16 02/04/23 documented as of this encounter
--- OUTSIDE RECORDS SUMMARY | 2024-03-14 14:09 | XMS_ITS | Encounter Summary ---
[place] [address] Care Team Providers Care Sales And Management Trainee Name Role Phone Junaid Deborah Shields APRN Primary Care Provider [phone] Reason for Visit * Reason Comments Follow-up Encounter Details Date Type Department Care Team (Late st Contact Info) Description 01/10/2021 4:30 PM EDT Office Visit Dermatology at [place] [address] [place] [phone] Marek Bonilla MD [address] [facility], [place] A DERMATOLOGY [place], [place] [phone] Rosacea Social History Tobacco Use Types Packs/Day [...] cutaneous and ocular 2. Previously told by brake lining maker that she had corneal tears from her [...] 3 refills. Will call this in her [facility] in [place] 3. Continue metronidazole 0.75% gel applying once [...] PM EDT Office Visit Dermatology at [address] [address] Marek Bonilla MD [address] [facility], [place] [address] documented as of this encounter Visit Diagnoses Diagnosis Rosacea documented in this encounter Care Teams Sales And Management Trainee Relationship Specialty Start Date End Date Deborah Quiroga APRN PCP - General Family Medicine 03/24/16 02/04/23 documented as of this encounter
--- OUTSIDE RECORDS SUMMARY | 2024-03-14 14:09 | XMS_ITS | Encounter Summary ---
Author Organization [facility] Address [facility] [place] [address] Care Team Providers Care Automation Control Technician Name Role Phone Deborah Quiroga ANURAG Primary Care Provider [phone] Encounter Details Date Type Department Care Team (Late st Contact Info) Description 01/14/2023 Refill Dermatology at [address] [address] Lupe Connor RN Social History [...] She would like the medication called into [facility]. Discussed with Dr. Bonilla and he has approved refill of the Doxycycline 50 mg take one capsule by mouth daily in the evenings dispense 30 capsules with 2 refills. Patient notified. documented in this encounter Plan of Treatment Upcoming Encounters Date Type Department Care Team (Late st Contact Info) Description 03/01/2025 4:15 PM EDT Office Visit Dermatology at [place] [address] [facility] [place] [address] Marek Bonilla MD [address], [place] [address] documented as of this encounter Visit Diagnoses Not on filedocumented in this encounter Care Teams Automation Control Technician Relationship Specialty Start Date End Date Deborah Quiroga APRN PCP - General Family Medicine 03/24/16 02/04/23 documented as of this encounter
--- OUTSIDE RECORDS SUMMARY | 2024-03-14 14:09 | XMS_ITS | Encounter Summary ---
Author Organization [facility] [place] [address] Care Team Providers Care Blade Boner Name Role Phone Deborah Quiroga APRN Primary Care Provider [phone] Encounter Details Date Type Department Care Team (Late st Contact Info) Description 11/09/2022 11:30 AM EDT - 11/09/2022 12:30 PM [place] [address] Nitesh Escobedo MD [facility] [place] [address] CARDIAC CATHETERIZATION Social History Tobacco Use Types [...] Center 02/05/2023 2:30 PM Marek Bonilla MD [facility] New Medications to be Picked Up None For questions regarding this document or issues relating to this hospitalization on the Medical Service, please contact your inpatient physician through the [facility] Supervisor Finishing Room . Issues afterhours and on weekends will be handled by the Hospitalist staff on-call. * Attachments The following attachments cannot be sent through Care Everywhere. * Coronary Angiogram: Post-op (Mosotho) * Right Heart Catheterization: Pulmonary Artery Catheterization: Post-op (Mosotho) documented in this encounter Medications at Time of Discharge Medication Sig Dispensed Refills Start Date End Date nystatin (MYCOSTATIN) 100,000 unit/gram Powder Apply topically 2 times daily as needed. 10/22/2022 [employer] Verio test strips Strip USE DAILY 01/03/2022 [facility] Delica Plus Lancet 33 gauge Misc USE [...] MD - 11/09/2022 11:20 AM EDT . [facility] Interventional Cardiology Adult Pre-Procedure H&P Update: Cardiac Catheterization Purnima Thacker [id number] 1955 Chief Complaint: BONILLA HPI: Purnima Thacker [...] Marrero MD Interventional Cardiology 11/09/22 11:43 AM [facility] Pager: [phone] documented in this encounter Plan of Treatment Upcoming Encounters Date Type Department Care Team (Late st Contact Info) Description 03/01/2025 4:15 PM EDT Office Visit Dermatology at [place] [address] [facility] [place] [address] Marek Bonilla MD [address] [facility], [place] [address] documented as of this encounter Procedures Procedure Name Priority Date/Time Associated Diagnosis Comments CARDIAC CATHETERIZATION Routine 11/10/19 1:05 PM EDT Aortic valve stenosis, etiology of cardiac valve disease unspecified Cath Plmt Left Heart Cath & Arts W/Inj & Angio Img S&I ([id number]) 11/09/2022 11:51 AM EDT Aortic valve stenosis, etiology of cardiac valve disease unspecified EKG 12-LEAD Routine 11/09/2022 11:17 AM EDT Aortic valve stenosis, etiology of cardiac valve disease unspecified documented in this encounter Results * CARDIAC CATHETERIZATION (11/09/2022 1:05 PM EDT) Anatomical Region Laterality Modality Other Narrative 11/09/2022 2:01 PM EDT ?[facility] ? Cardiac Catheterization/Intervention Report ? Patient Name: Kirstie, Purnima M. ? Procedure Date: 11/09/2022 ? A #: [id number] ? Primary Physician: Nitesh Escobedo ? Case #: [id number] ? File Name: [id number] ? Catheterization Order Number: [id number] ? [facility] ? Final Report [place], [place] ? Patient Name: ? Purnima M. Kirstie ? ID#: ?[id number] ? : ?1955 ? Procedure Date: ? [...] was designated as ASA Class III. The CSHA clinical frailty scale ?is 4: Vulnerable. ? [...] right heart ?catheterization and oximetry. ? Nitesh Escobedo, M.D. ? Electronically Signed by: Nitesh Escobedo, M.D. ? Report Finalized: 11/09/2022 ??13:20 ? Nitesh Escobedo MD CARDIAC CATH ORDERAB LES * EKG 12 Lead (11/09/2022 11:17 AM EDT) Ventricular rate 87 BPM MUSE SYSTEM Atrial Rate 87 BPM MUSE SYSTEM P-R Interval 168 ms MUSE SYSTEM QRS Duration 96 ms MUSE SYSTEM Q-T Interval 380 ms MUSE SYSTEM QTC Calculated (Bezet) 457 ms MUSE SYSTEM Calculated P [place] 44 degrees MUSE SYSTEM Calculated R [place] 33 degrees MUSE SYSTEM Calculated T [place] 30 degrees MUSE SYSTEM INTERPRETATION Sinus rhythm Occasional Premature ventricular complexes Otherwise normal ECG When compared with ECG of 21-SEP-2016 12:26, Premature ventricular complexes are now Present DC interval has decreased Nonspecific T wave abnormality has replaced inverted T waves in Inferior leads I personally reviewed the tracing and edited the fellows interpretation Confirmed by fellow MD Anitha, Carissa ([id number]) on 11/09/2022 6:17:28 PM Confirmed by Elsa [...] MD) documented in this encounter Care Teams Blade Boner Relationship Specialty Start Date End Date Deborah Quiroga, ORTHODONTIST PCP - General Family Medicine 03/24/16 02/04/23 documented as of this encounter
--- OUTSIDE RECORDS SUMMARY | 2024-03-14 14:09 | XMS_ITS | Encounter Summary ---
[place] [address] Care Team Providers Care Filament Tester Name Role Phone Dbeorah Quiroga APRN Primary Care Provider [phone] Encounter Details Date Type Department Care Team (Late st Contact Info) Description 01/09/2022 Refill Dermatology at [address] [phone] Lupe Connor RN Social History Tobacco Use [...] PM EDT Office Visit Dermatology at [address] [phone] Marek Bonilla MD [address] [facility], [place] [address] documented as of this encounter Visit Diagnoses Not on filedocumented in this encounter Care Teams Filament Tester Relationship Specialty Start Date End Date Deborah Quiroga APRN PCP - General Family Medicine 03/24/16 02/04/23 documented as of this encounter
--- OUTSIDE RECORDS SUMMARY | 2024-03-14 14:09 | XMS_ITS | Encounter Summary ---
Author Organization [facility] [place] [address] Care Team Providers Care Electrical Power Station Technician Name Role Phone Deborah Quiroga APRN Primary Care Provider [phone] Encounter Details Date Type Department Care Team (Latest Contact Info) Description 07/03/2022 12:28 PM EST - 07/03/2022 1:35 PM EST Hospital Encounter Hematology [place] [address] Chronic idiopathic neutropenia Discharge Disposition: Home Social [...] EDT Office Visit Dermatology at [place] [address] [facility] [place] [phone] Marek Bonilla MD [address] [facility] [facility] [address], [place] [address] documented as of this encounter Procedures Procedure [...] (ABNORMAL) Differential, Automated (07/03/2022 12:40 PM EST) [facility] Neutrophil % 72.9 % [facility] Neutrophil Absolute 2.61 1.70 - 6.10 x10(3)/[facility] Lymph % 18.4 % [facility] Lymphocytes Abs 0.7(L) 0.9 - 3.2 x10(3)/[facility] Monocyte % 8.4 % [facility] Monocyte Abs 0.3 0.3 - 0.9 x10(3)/[facility] Eos % 0.0 % [facility] Eosinophils Abs 0.0 0.0 - 0.4 x10(3)/[facility] Basophil % 0.3 % [facility] Baso Absolute 0.0 0.0 - 0.1 x10(3)/[facility] Immature Gran % 0.00 % [facility] Comment: Immature granulocytes(IG's)percentage and absolute count will include metamyelocytes, myelocytes, and promyelocytes. Blood smears from CBCs yielding IG's will be scanned manually for concordance. If this scan disagrees with the automated IG or if promyelocytes are noted, a manual differential will be performed. Immature Gran Absolute 0.00 0.00 - 0.04 x10(3)/[facility] Blood 07/03/2022 12:4 0 PM EST 07/03/2022 1:03 PM EST Narrative Resulting Agency Comment Spec In Lab Markel Borjas MD HEMATOLOGY ORDERAB LES [facility] [place] [address] * (ABNORMAL) Hemogram (07/03/2022 12:40 PM EST) White Blood Cell 3.6(L) 4.0 - 9.5 x10(3)/[facility] Red Blood Cell 3.61(L) 4.00 - 5.21 x10(6)/mc L [facility] Hemoglobin 11.7 11.7 - 15.5 g/dL [facility] Hematocrit 34.5(L) 35.7 - 45.8 % [facility] Mean Cell Volume 95.6(H) 82.6 - 94.4 fL [facility] Mean Cell Hemoglobin 32.4(H) 27.1 - 32.0 pg [facility] Mean Cell Hemoglobin Concentration 33.9 31.7 - 35.0 g/dL [facility] Platelet 171 145 - 357 x10(3)/mc L [facility] RDW Standard Deviation 40.5 37.0 - 46.0 fL [facility] RDW coefficient of variation 11.5 11.5 - 14.1 % [facility] Mean Platelet Volume 9.2 7.6 - 12.9 [facility] NRBC% auto 0.0 % [facility] NRBC Absolute 0.000 0.000 - 0.000 x10(3)/mc L [facility] Blood 07/03/2022 12:4 0 PM EST 07/03/2022 1:03 PM EST Narrative Resulting Agency Comment Spec In Lab Markel Borjas MD HEMATOLOGY ORDERAB LES [facility] [place] [address] * (ABNORMAL) Comprehensive metabolic panel (non-fasting) (07/03/2022 12:40 PM EST) Glucose 92 65 - 199 mg/dL [facility] Comment:Diabetes: >=200 mg/d L plus symptoms Blood Urea Nitrogen 22(H) 8 - 18 mg/dL [facility] Creatinine 0.80 0.70 - 1.20 mg/dL [facility] Sodium 139 135 - 145 mmol/L [facility] Potassium 4.2 3.5 - 5.0 mmol/L [facility] Comment: Please note: ??Patients with WBC >100,000 may have falsely elevated Potassium levels. ??For accurate Potassium quantification in these patients send serum separator tube (gold top) for subsequent determinations. ??Contact the Clinical Chemistry Laboratory if there are any questions. Chloride 105 98 - 107 mmol/L [facility] Carbon Dioxide 23 22 - 31 mmol/L [facility] Anion Gap 11 5 - 15 mmol/L [facility] Calcium 10.1 8.5 - 10.5 mg/dL [facility] Protein, Total 7.6 6.1 - 8.0 g/dL [facility] Albumin 4.1 3.2 - 5.2 g/dL [facility] Aspartate Aminotransferase 25 0 - 30 unit/L [facility] Alanine Aminotransferase 14 0 - 30 unit/L [facility] Alkaline Phosphatase 80 35 - 105 unit/L [facility] Bilirubin, Total 0.3 0.2 - 1.3 mg/dL [facility] Est Glomerular Filtration Rate 81 >=60 mL/min/1. 73 m?? [facility] Comment: This patient's estimated [...] Lab Markel Borjas MD CHEMISTRY ORDERABL ES [facility] [place] [address] documented in this encounter Visit Diagnoses Diagnosis Chronic idiopathic neutropenia Other neutropenia documented in this encounter Care Teams Electrical Power Station Technician Relationship Specialty Start Date End Date Deborah Quiroga APRN PCP - General Family Medicine 03/24/16 02/04/23 documented as of this encounter
--- OUTSIDE RECORDS SUMMARY | 2024-03-14 14:09 | XMS_ITS | Encounter Summary ---
Author Organization [facility] Address [facility] [place] [address] Care Team Providers Care Software Configuration Engineer Name Role Phone Magdalena Acosta MD Primary Care Provider [phone] Reason for Visit * Consultation (Routine) - Closed Specialty Diagnoses / Procedures Referred By Contac t Referred To Contact Rheumatology Diagnoses Weakness Kyra Haas MD [facility] [address] [place] [address] [facility] Rheumatology [address] [place] [phone] Referral ID Status Reason Start Date Expiration Date V isits Requested Visits Authorized [id number] Closed Consult, Test & Treat PCP Updated and/or Approved 02/25/2023 02/25/2024 6 6 Encounter Details Date Type Department Care Team (Late st Contact Info) Description 03/18/2023 1:00 PM EDT [place] [address] Kia Viramontes DO [facility] [place] [address] Magdalena Peralta MD [facility] [place] [address] Positive FRANCISCO (antinuclear antibody) Social [...] 1:5120 speckled VIC negative Myositis panel with BUDGET EXAMINER ab 149.1 (positive) Anti U1RNP IgG 119 [...] a chair without assistance of upper extremities. Concert Manager strength 3+/5 bilaterally; otherwise large muscle groups [...] due to risk of retinal toxicity with fdc Plaquenil use, which she already does. Recommendations: #mixed connective tissue disease Start hydroxychloroquine 200 mg qd Labs today: repeat FRANCISCO, dsDNA, complements, CBC, CMP, CK, ESR, CRP Follow up 1 month The patient was seen and discussed with Dr. Wander Peralta MD Rheumatology Fellow Pager: [phone] CC: Kyra Haas * Kia Viramontes DO - 03/18/2023 1:00 PM EDT ATTENDING ADDENDUM The patient's history was reviewed, and I interviewed and examined the patient with Dr. Campbell. Arnold with her summary, findings, and plan. documented in this encounter Plan of Treatment Upcoming Encounters Date Type Department Care Team (Late st Contact Info) Description 03/01/2025 4:15 PM EDT Office Visit Dermatology at [place] [address] [place] [address] Marek Bonilla MD [address] [facility] [place] [address] documented as of this encounter Results * Comprehensive metabolic panel (non-fasting) (03/18/2023 2:14 PM EDT) Glucose 93 65 - 199 mg/dL [facility] Comment:Diabetes: >=200 mg/d L plus symptoms Blood Urea Nitrogen 18 8 - 18 mg/dL [facility] Creatinine 0.99 0.70 - 1.20 mg/dL [facility] Sodium 141 135 - 145 mmol/L [facility] Potassium 4.5 3.5 - 5.0 mmol/L [facility] Comment: Please note: ??Patients with WBC >100,000 may have falsely elevated Potassium levels. ??For accurate Potassium quantification in these patients send serum separator tube (gold top) for subsequent determinations. ??Contact the Clinical Chemistry Laboratory if there are any questions. Chloride 106 98 - 107 mmol/L [facility] Carbon Dioxide 24 22 - 31 mmol/L [facility] Anion Gap 11 5 - 15 mmol/L [facility] Calcium 10.0 8.5 - 10.5 mg/dL [facility] Protein, Total 7.3 6.1 - 8.0 g/dL [facility] Albumin 4.3 3.2 - 5.2 g/dL [facility] Aspartate Aminotransferase 26 0 - 30 unit/L [facility] Alanine Aminotransferase 11 0 - 30 unit/L [facility] Alkaline Phosphatase 91 35 - 105 unit/L [facility] Bilirubin, Total 0.4 0.2 - 1.3 mg/dL [facility] Est Glomerular Filtration Rate 62 >=60 mL/min/1. 73 m?? [facility] Comment: This patient's estimated GFR [...] DO CHEMISTRY ORDERABL ES Performing Organization Address City/State/[facility] Co de Phone Number [facility] [place] [address] * (ABNORMAL) FRANCISCO Ab by IFA (03/18/2023 2:14 PM EDT) FRANCISCO Ab Screen Test ? Result ?Flag ??Unit ??RefValue Antinuclear Ab, HEp-2 ?Positive 1:2560 ??@ ?<1:80 (Negative) ??Substrate, S ? ADDITIONAL INFORMATION --------- ?Method: Immunofluorescence using HEp-2 cellular substrate. ??FRANCISCO Titer: ? 1:2560 ??FRANCISCO Pattern: ? Speckled ?Test Performed by: ?[facility] ?[address] [place] [address] ?Iron Molder Helper: Raymond Chaudhry M.D. Ph.D.; CLIA# [id number] ([id number]) [facility] Blood 03/18/2023 2:14 PM EDT 03/18/2023 3:02 PM EDT Narrative Resulting Agency Comment Spec In Lab Kia Viramontes DO CHEMISTRY ORDERABL ES Performing Organization Address [facility] de Phone Number [facility] [place] [address] * DNA Antibody (Double-Stranded) (03/18/2023 2:14 PM EDT) [facility] dsDNA Ab <0.6 <=15.0 IU/mL [facility] Comment: <10 negative 10-15 equivocal >15 positive This dsDNA antibody result was generated using a fluoroenzyme immunoassay on the Pivtodia 250 analyzer. This quantitative test is designed to detect IgG antibodies directed against double stranded DNA in human serum. The presence of antibodies that recognize dsDNA is a highly specific marker for systemic lupus erythematosus. Please note that as of 05/26/2022 that this testing is performed by the Special Chemistry Laboratory at [facility] [place] [place]. This change in testing location is associated with a change is testing method and reference intervals. Please review the results of this test in association with the posted reference intervals. Blood 03/18/2023 2:14 PM EDT 03/19/2023 7:19 AM EDT Narrative Resulting Agency Comment Spec In Lab Kia Viramontes DO LAB SEND OUT ORDER JODIE Performing Organization Address [facility]/ZIP Co de Phone Number [facility] [place] [address] * CK (03/18/2023 2:14 PM EDT) Creatine Kinase 38 0 - 160 unit/L [facility] Blood 03/18/2023 2:14 PM EDT 03/18/2023 2:24 PM EDT Narrative Resulting Agency Comment Spec In Lab Kia D Wander DO CHEMISTRY ORDERABL ES Performing Organization Address [facility] Co de Phone Number [facility] [place] [address] * C4 Complement (03/18/2023 2:14 PM EDT) Complement C4 30 10 - 40 mg/dL [facility] Blood 03/18/2023 2:14 PM EDT 03/18/2023 2:24 PM EDT Narrative Resulting Agency Comment Spec In Lab Kia D Wander DO CHEMISTRY ORDERABL ES Performing Organization Address [facility] Co de Phone Number [facility] [place] [address] * C3 Complement (03/18/2023 2:14 PM EDT) Complement C3 142 90 - 180 mg/dL [facility] Blood 03/18/2023 2:14 PM EDT 03/18/2023 2:24 PM EDT Narrative Resulting Agency Comment Spec In Lab Kia D Wander DO CHEMISTRY ORDERABL ES Performing Organization Address [facility] Co de Phone Number [facility] [place] [address] * CRP, acute inflammation (03/18/2023 2:14 PM EDT) C-Reactive Protein 3.0 <=4.9 mg/L [facility] Blood 03/18/2023 2:14 PM EDT 03/18/2023 2:24 PM EDT Narrative Resulting Agency Comment Spec In Lab Kia Viramontes DO CHEMISTRY ORDERABL ES Performing Organization Address City/[facility]/ZIP Co de Phone Number [facility] [place] [address] * (ABNORMAL) Sedimentation rate (03/18/2023 2:14 PM EDT) Sedimentation Rate Automated 68(H) 2 - 39 mm/hr [facility] Comment: Effective July 12, 2019 new capillary photometric technology has resulted in a change in reference ranges. It is recommended that each ESR result be reviewed with its own age appropriate reference range. Blood 03/18/2023 2:14 PM EDT 03/18/2023 2:24 PM EDT Narrative Resulting Agency Comment Spec In Lab Kia Viramontes DO HEMATOLOGY ORDERAB LES Performing Organization Address City/[facility] Co de Phone Number [facility] [place] [address] documented in this encounter Visit Diagnoses Diagnosis Positive FRANCISCO (antinuclear antibody) Other and unspecified nonspecific immunological findings documented in this encounter Care Teams Software Configuration Engineer Relationship Specialty Start Date End Date Magdalena Acosta MD [address] [place] [address] PCP - General Family Medicine 02/05/23 documented as of this encounter
--- OUTSIDE RECORDS SUMMARY | 2024-03-14 14:09 | XMS_ITS | Encounter Summary ---
Author Organization [facility] [place] [address] Care Team Providers Care Clinical Assistant Name Role Phone Magdalena Acosta MD Primary Care Provider [phone] Encounter Details Date Type Department Care Team (Latest Contact Info) Description 02/05/2023 9:33 PM EDT - 02/05/2023 11:59 PM EDT Hospital [place] [id number] Discharge Disposition: Home Social History Tobacco Use [...] 4:15 PM EDT Office Visit Dermatology at [place] [address] [place] [address] Marek Bonilla MD [address] [facility] [place] [address] documented as of this encounter Procedures Procedure Name Priority Date/Time Associated Diagnosis Comments SURGICAL PATHOLOGY REPORT Routine 02/05/2023 3:00 PM EDT documented in this encounter Results * Surgical Pathology Report (02/05/2023 3:00 PM EDT) Final Diagnosis [id number] ? Location: OPW The signing pathologist has (i) examined the relevant preparation(s) for the specimen(s) and (ii) rendered or confirmed the diagnosis(es). . ?Surgical Pathology DIAGNOSIS Left upper back, skin punch biopsy: - ??Compound dysplastic ??melanocytic nevus with moderate atypia, transected at peripheral specimen edges ?? (see discussion) Electronically signed by: ?Vanna CULP, Jesse Shields Verified: ??02/16/2023 8:04 ?? Dermatopathologist Performed at: ??-[facility] [place]ology, [place] [address] Earthmoving Plant Operator: Kunal Rubi MD, FCAP, ??CLIA Certificate: [id number] DISCUSSION If there is an obvious clinical [...] labeled A1. ??sns 02/16/2023 8:04 AM EDT [facility] SPECIMEN FROM SKIN / Unknown 02/05/2023 3:00 PM EDT 02/05/2023 3:00 PM EDT Marek Bonilla MD PATHOLOGY/CYTOLOGY O RDERABLES [facility] [place] [address] [facility] [place] [address] documented in this encounter Visit Diagnoses Not on filedocumented in this encounter Care Teams Clinical Assistant Relationship Specialty Start Date End Date Magdalena Acosta MD [address] [place] [address] PCP - General Family Medicine 02/05/23 documented as of this encounter
--- OUTSIDE RECORDS SUMMARY | 2024-03-14 14:09 | XMS_ITS | Encounter Summary ---
[place] [address] Care Team Providers Care Nutrition Representative Name Role Phone Magdalena Acosta MD Primary Care Provider [phone] Encounter Details Date Type Department Care Team [...] PM EDT Office Visit Dermatology at [address] [place] [address] Marek Bonilla MD [address] [facility], [place] [address] documented as of this encounter Visit Diagnoses Not on filedocumented in this encounter Care Teams Nutrition Representative Relationship Specialty Start Date End Date Magdalena Acosta MD [address] [place] [address] PCP - General Family Medicine 02/05/23 documented as of this encounter
--- OUTSIDE RECORDS SUMMARY | 2024-03-14 14:09 | XMS_ITS | Encounter Summary ---
Author Organization [facility] [address] Care Team Providers Care Tester Armature Or Fields Name Role Phone Magdalena Acosta MD Primary Care Provider [phone] Reason for Referral * Consultation (Routine) - Closed Specialty Diagnoses / Procedures Referred By Contac t Referred To Contact Rheumatology Diagnoses Weakness Kyra Haas MD [facility] [address] [place] [address] [facility] [place] [address] [place] [phone] Referral ID Status Reason Start Date Expiration Date V isits Requested Visits Authorized [id number] Closed Consult, Test & Treat PCP Updated and/or Approved 02/25/2023 02/25/2024 6 6 Encounter Details Date Type Department Care Team (Late st Contact Info) Description 02/25/2023 Transcribe Orders eDH Incoming Referrals [phone] Magdalena Acosta MD [address] [place] [address] Weakness Social History Tobacco Use [...] Visit Dermatology at [place] [address] [place] [address] Marek Bonilla MD [address] [place] [address] Scheduled Referrals Name Type Priority Associated Diagnoses Order Schedule Referral to Rheumatology Outpatient Referral Routine Weakness Ordered: 02/25/2023 documented as of this encounter Visit Diagnoses Diagnosis Weakness Other malaise and fatigue documented in this encounter Care Teams Tester Armature Or Fields Relationship Specialty Start Date End Date Magdalena Acosta MD [address] [place] [address] PCP - General Family Medicine 02/05/23 documented as of this encounter
--- OUTSIDE RECORDS SUMMARY | 2024-03-14 14:09 | XMS_ITS | Encounter Summary ---
[place] [address] Care Team Providers Care Chlorine Cell Tender Name Role Phone Ashley Quirogan Cornelius ANURAG Primary Care Provider [phone] Reason for Visit * Reason Comments Skin Check Encounter Details Date Type Department Care Team (Late st Contact Info) Description 11/11/2020 10:45 AM EDT Office Visit Dermatology at [address] [place] [address] Marek Bonilla MD [address] [facility], [address] DERMATOLOGY [place], [place] [id number] Rosacea; Acrochordon Social History Tobacco Use Types [...] Discussed the possibility of getting this through [facility] or from the [facility] if necessary. She has not yet [...] 4:15 PM EDT Office Visit Dermatology at [place] [address] [facility] [place] [address] Marek Bonilla MD [address] [facility] [place] [address] documented as of this encounter Visit Diagnoses Diagnosis Rosacea Acrochordon Unspecified hypertrophic and atrophic condition of skin documented in this encounter Care Teams Chlorine Cell Tender Relationship Specialty Start Date End Date Deborah Quiroga APRN PCP - General Family Medicine 03/24/16 02/04/23 documented as of this encounter
--- OUTSIDE RECORDS SUMMARY | 2024-03-14 14:09 | XMS_ITS | Encounter Summary ---
[place] [address] Care Team Providers Care Cause Analyst Name Role Phone Deborah Quiroga APRN Primary Care Provider Encounter Details Date Type Department Care Team (Late st Contact Info) Description 06/17/2022 Ancillary Procedure [place] [phone] Deborah Quiroga, HEARING IMPAIRED TEACHER [address] [address] Social History Tobacco Use Types Packs/Day Years [...] 4:15 PM EDT Office Visit Dermatology at [place] [address] [facility] [place] [address] Marek Bonilla MD [address] [facility], [place] [address] documented as of this encounter Procedures Procedure Name Priority Date/Time Associated Diagnosis Comments FILM LIBRARY STORAGE ONLY MR SPINE Routine 06/17/2022 12:00 AM EST documented in this encounter Results * Film Library- Storage Only MR Spine (06/17/2022 12:00 AM EST) Narrative SYLVIA - 06/18/2022 11:00 AM EST This exam is auto-finalizing. It's purpose is for storage only. Deborah Quiroga APRN IMG FILM LIBRARY OR DERABLES Performing Organization Address City/State/[facility] Co de Phone Number [place], [place] documented in this encounter Visit Diagnoses Not on filedocumented in this encounter Care Teams Cause Analyst Relationship Specialty Start Date End Date Deborah Quiroga APRN PCP - General Family Medicine 03/24/16 02/04/23 documented as of this encounter
--- OUTSIDE RECORDS SUMMARY | 2024-03-14 14:09 | XMS_ITS | Encounter Summary ---
[place] [address] Care Team Providers Care Rivet Heater Gas Name Role Phone Deborah Quiroga APRN Primary Care Provider [phone] Encounter Details Date Type Department Care Team (Late st Contact Info) Description 06/05/2021 Interpretation Only [address] [address] Deborah Quiroga GROUNDS KEEPER [address] [address] Social History Tobacco Use Types Packs/Day Years [...] 4:15 PM EDT Office Visit Dermatology at [place] [address] [place] [address] Marek Bonilla MD [address] [facility] [place] [address] documented as of this encounter Procedures Procedure Name Priority Date/Time Associated Diagnosis Comments MAMMO SCREENING CAD AND CATRACHITO BILATERAL Routine 06/05/2021 11:42 AM EDT documented in this encounter Results * Mammo Screening Cad and Catrachito Bilateral (06/05/2021 11:42 AM EDT) PT CLASS O DH RAD ADMITDTTM DH RAD PT DH RAD INFO [id number]^EVERET T^DEBORAH^E DH RAD EXAM DESC MADDSCTO^BREAST SCREEN [...] who have questions please contact the health transitional care nurse that requested your imaging first. ? Electronically signed by: Rocael Villatoro MD, [facility] ([phone]), at 06/05/2021 1:27 PM Narrative 06/05/2021 1:27 [...] patients who have questions please contactthe health transitional care nurse that requested your imaging first. Electronically signed by: Rocael Villatoro MD, [facility]([phone]), at 06/05/2021 1:27 PM Deborah Quiroga APRN IMG MAMMO ORDERABLE S documented in this encounter Visit Diagnoses Not on filedocumented in this encounter Care Teams Rivet Heater Gas Relationship Specialty Start Date End Date Deborah Quiroga APRN PCP - General Family Medicine 03/24/16 02/04/23 documented as of this encounter
--- OUTSIDE RECORDS SUMMARY | 2024-03-14 14:09 | XMS_ITS | Encounter Summary ---
[place] [address] Care Team Providers Care Dealer Development Manager Name Role Phone Deborah Quiroga APRN Primary Care Provider [phone] Reason for Referral * Consultation (Routine) - Closed Specialty Diagnoses / Procedures Referred By Contac t Referred To Contact Rheumatology Diagnoses Positive FRANCISCO (antinuclear antibody) Arthralgia, unspecified joint Sandy Wu APRN [address] [place] [address] [facility] [address] [place] [phone] Referral ID Status Reason Start Date Expiration Date V isits Requested Visits Authorized [id number] Closed Consult, Test & Treat PCP Updated and/or Approved 01/01/2022 01/01/2023 6 6 Encounter Details Date Type Department Care Team (Latest Contact Info) Description 01/01/2022 Transcribe Orders eDH Incoming Referrals [phone] Sandy Wu APRN [address] [place], [place] [id number] Positive FRANCISCO (antinuclear antibody); Arthralgia, unspecified joint [...] 4:15 PM EDT Office Visit Dermatology at [place] [address] [facility] [place] [address] Marek Bonilla MD [address] [place] [place] [address] Scheduled Referrals Name Type Priority Associated Diagnoses Orde r Schedule Referral to Rheumatology Outpatient Referral Routine Positive FRANCISCO (antinuclear antibody) Arthralgia, unspecified joint Ordered: 01/01/2022 documented as of this encounter Visit Diagnoses Diagnosis Positive FRANCISCO (antinuclear antibody) Other and unspecified nonspecific immunological findings Arthralgia, unspecified joint documented in this encounter Care Teams Dealer Development Manager Relationship Specialty Start Date End Date Deborah Quiroga APRN PCP - General Family Medicine 03/24/16 02/04/23 documented as of this encounter
--- OUTSIDE RECORDS SUMMARY | 2024-03-14 14:09 | XMS_ITS | Encounter Summary ---
Author Organization [facility] [address] Care Team Providers Care Seed Laboratory Technician Name Role Phone Deborah Quiroga APRN Primary Care Provider [phone] Reason for Referral * Consultation (Routine) - Closed Specialty Diagnoses / Procedures Referred By Crispin maxwell Referred To Contact Neurology Diagnoses Polyneuropathy Deborah Quiroga APRN [address] [place] [address] [facility] Neurology [address] [place] [phone] Referral ID Status Reason Start Date Expiration Date V isits Requested Visits Authorized [id number] Closed Consult, Test & Treat 10/29/2022 10/29/2023 1 1 Encounter Details Date Type Department Care Team (Latest Contact Info) Description 10/29/2022 Transcribe Orders eDH Incoming Referrals [phone] Deborah Quiroga APRN [address] [place] [address] Polyneuropathy (Primary Dx) Social History [...] 4:15 PM EDT Office Visit Dermatology at [place] [address] [facility] [place] [address] Maerk Bonilla MD [address] [facility] [address] [place] [address] Scheduled Referrals Name Type Priority Associated Diagnoses Orde r Schedule Referral to Neurology Outpatient Referral Routine Polyneuropathy Ordered: 10/29/2022 documented as of this encounter Visit Diagnoses Diagnosis Polyneuropathy- Primary Unspecified hereditary and idiopathic peripheral neuropathy documented in this encounter Care Teams Seed Laboratory Technician Relationship Specialty Start Date End Date Deborah Quiroga APRN PCP - General Family Medicine 03/24/16 02/04/23 documented as of this encounter
--- OUTSIDE RECORDS SUMMARY | 2024-03-14 14:09 | XMS_ITS | Encounter Summary ---
[place] [address] Care Team Providers Care Finish Mill Operator Name Role Phone Magdalena Acosta MD Primary Care Provider [phone] Reason for Visit * Reason Comments Annual Exam Encounter Details Date Type Department Care Team (Late st Contact Info) Description 02/05/2023 2:30 PM EDT Office Visit Dermatology at [address] [address] Marek Bonilla MD 580 [facility] [address] Rosacea; Ocular rosacea; Nevus Social History Tobacco [...] cutaneous and ocular 2. Previously told by radiology transcriptionist that she had corneal tears from her [...] PM EDT Office Visit Dermatology at [address] [phone] Marek Bonilla MD [address] [facility] [address] documented as of this encounter Visit Diagnoses Diagnosis Rosacea Ocular rosacea Rosacea Nevus Benign neoplasm of skin, site unspecified documented in this encounter Care Teams Finish Mill Operator Relationship Specialty Start Date End Date Magdalena Acosta MD [address] [place] [address] PCP - General Family Medicine 02/05/23 documented as of this encounter
--- OUTSIDE RECORDS SUMMARY | 2024-03-14 14:09 | XMS_ITS | Encounter Summary ---
Author Organization [facility]ly [facility], Later [facility] Address [facility] [place] [address] Care Team Providers Care Director Case Name Role Phone Magdalena Acosta MD Primary Care Provider [phone] Encounter Details Date Type Department Care Team (Late st Contact Info) Description 02/17/2023 2:00 PM EDT Office [place] [address] Alirio Esparza MD [facility] [address] [place] [address] Aortic valve stenosis, etiology of cardiac valve [...] 4:15 PM EDT Office Visit Dermatology at [place] [address] [place] [address] Marek Bonilla MD [address], TOD[place] A DERMATOLOGY [place], [place] [address] documented as of this encounter Visit Diagnoses Diagnosis Aortic valve stenosis, etiology of cardiac valve disease unspecified documented in this encounter Care Teams Director Case Relationship Specialty Start Date End Date Magdalena Acosta MD [address] [place] [address] PCP - General Family Medicine 02/05/23 documented as of this encounter
--- OUTSIDE RECORDS SUMMARY | 2024-03-14 14:09 | XMS_ITS | Encounter Summary ---
Author Organization [facility] Address [facility] Erika [place] [address] Care Team Providers Care Circular Saw Operator Name Role Phone Deborah Quiroga APRN Primary Care Provider [phone] Reason for Visit * Consultation (Routine) - Closed Specialty Diagnoses / Procedures Referred By Contkrystle t Referred To Contact Rheumatology Diagnoses Positive FRANCISCO (antinuclear antibody) Arthralgia, unspecified joint Sandy Wu APRN [address] [place] [address] [facility] [address] [place] [address] Referral ID Status Reason Start Date Expiration Date V isits Requested Visits Authorized [id number] Closed Consult, Test & Treat PCP Updated and/or Approved 01/01/2022 01/01/2023 6 6 Encounter Details Date Type Department Care Team (Latest Contact Info) Description 01/20/2022 10:00 AM EDT Office [place] [address] Raymond Loredo MD [facility] [place] [place] [address] Rosacea; Raynaud's phenomenon without gangrene; [...] over radiocarpal or ulnocarpal joints. 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 SJC/TJC 0/0. Hips: Full motion, [...] can be done locally or here at [facility] that the current time is not particularly interested it seems Raymond Loredo MD documented in this encounter Plan of Treatment Upcoming Encounters Date Type Department Care Team (Late st Contact Info) Description 03/01/2025 4:15 PM EDT Office Visit Dermatology at [place] [address] [facility] [place] [address] Marek Bonilla MD [address], [place] [address] Scheduled Referrals Name Type Priority Associated Diagnoses [...] syndrome documented in this encounter Care Teams Circular Saw Operator Relationship Specialty Start Date End Date Deborah Quiroga APRN PCP - General Family Medicine 03/24/16 02/04/23 documented as of this encounter
--- OUTSIDE RECORDS SUMMARY | 2024-03-14 14:09 | XMS_ITS | Encounter Summary ---
Author Organization [facility] [place] [address] Care Team Providers Care Dip Brazier Name Role Phone Deborah Quiroga APRN Primary Care Provider [phone] Encounter Details Date Type Department Care Team (Late st Contact Info) Description 11/02/2022 Orders [place] [address] Emily Lyons PA [facility] [place] [address] Aortic valve stenosis, etiology of cardiac valve [...] 4:15 PM EDT Office Visit Dermatology at [place] [address] [place] [address] Marek Bonilla MD [address], [place] [address] documented as of this encounter Visit Diagnoses Diagnosis Aortic valve stenosis, etiology of cardiac valve disease unspecified documented in this encounter Care Teams Dip Brazier Relationship Specialty Start Date End Date Deborah Quiroga APRN PCP - General Family Medicine 03/24/16 02/04/23 documented as of this encounter
--- OUTSIDE RECORDS SUMMARY | 2024-03-14 14:09 | XMS_ITS | Encounter Summary ---
Author Organization [facility] [place] [address] Care Team Providers Care Desk Manager Name Role Phone Deborah Quiroga APRN Primary Care Provider [phone] Encounter Details Date Type Department Care Team (Latest Contact Info) Description 07/03/2022 1:36 PM EST - 07/03/2022 11:59 PM EST Hospital Encounter Hematology [place] [address] Discharge Disposition: Home Social History Tobacco Use [...] 4:15 PM EDT Office Visit Dermatology at [place] [address] [place] [address] Marek Bonilla MD [address] [facility], [place] [address] documented as of this encounter Procedures Procedure Name Priority Date/Time Associated Diagnosis Comments FOLATE, SERUM Routine 07/03/2022 1:59 PM EST VITAMIN B12 Routine 07/03/2022 1:59 PM EST documented in this encounter Results * Folate, serum (07/03/2022 1:59 PM EST) Folate >20.0 4.8 - 24.2 ng/mL [facility] Blood Venous Draw / Unknown 07/03/2022 1:59 PM EST 07/03/2022 2:13 PM EST Narrative Resulting Agency Comment Spec In Lab Markel Borjas MD CHEMISTRY ORDERABL ES Performing Organization Address City/[facility]/ZIP Co de Phone Number [facility] [place] [address] * Vitamin B12 (07/03/2022 1:59 PM EST) Vitamin B12 449 232 - 1,245 pg/mL [facility] Blood Venous Draw / Unknown 07/03/2022 1:59 PM EST 07/03/2022 2:13 PM EST Narrative Resulting Agency Comment Spec In Lab Markel Borjas MD CHEMISTRY ORDERABL ES Performing Organization Address [facility] [place] [place] [address] documented in this encounter Visit Diagnoses Not on filedocumented in this encounter Care Teams Desk Manager Relationship Specialty Start Date End Date Deborah Quiroga APRN PCP - General Family Medicine 03/24/16 02/04/23 documented as of this encounter
--- OUTSIDE RECORDS SUMMARY | 2024-03-14 14:09 | XMS_ITS | Encounter Summary ---
Author Organization [facility] Address [facility] [place] [address] Care Team Providers Care Hand Cell Tuber Name Role Phone Deborah Quiroga APRN Primary Care Provider [phone] Reason for Visit * Reason Comments Follow-up Encounter Details Date Type Department Care Team (Late st Contact Info) Description 07/03/2022 1:30 PM EST Office Visit Hematology [place] [address] Markel Borjas MD [facility] [address] HEMATOLOGY [place] [address] Consuelo Sommer APRN [facility] [address] HEMATOLOG[place] [address] Chronic idiopathic neutropenia; Dysuria Social History Tobacco [...] 07/03/2022 1:30 PM EST Hematology Outpatient Clinic [facility] Hematology Outpatient Consult Note CC: [...] TOUCH PREP, CLOT SECTION, CORE ??BIOPSY); [OSR# [id number], COLLECTED 06/23/2016, 19 SLIDES]: ?1. 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 Extremities: No edema. Labs: Hgb= 11.7 Biaw=241 ANC= 2.5 Imaging As above - reviewed [...] 4:15 PM EDT Office Visit Dermatology at [place] [address] [place] [address] Marek Bnoilla MD [address] [facility], [place] [address] documented as of this encounter Procedures Procedure [...] tract infection, submit a new specimen. (A) [facility] Clean Catch Urine 07/03/2022 2:00 PM EST 07/03/2022 5:55 PM EST Narrative Resulting Agency Comment Spec In Lab Markel Borjas MD MICROBIOLOGY - GEN ERAL ORDERABLES Performing Organization Address [facility] de Phone Number [facility] [place] [address] * (ABNORMAL) Urinalysis Microscopic Exam (07/03/2022 2:00 PM EST) RBC, Urine 2 0 - 4 /HPF [facility] WBC, Urine 14(H) 0 - 5 /HPF [facility] Bacteria, Urine Occasional (A) None /HPF [facility] Squamous Epithelial Cells Raw Data, Urine 12(H) <=4 /HPF [facility] Hyaline Casts, Urine 2 0 - 2 /LPF [facility] Clean Catch Urine 07/03/2022 2:00 PM EST 07/03/2022 2:29 PM EST Narrative Resulting Agency Comment Spec In Lab Markel Borjas MD URINE ORDERABLES Performing Organization Address [facility] de Phone Number [facility] [place] [address] * (ABNORMAL) Urinalysis with reflex Culture (07/03/2022 2:00 PM EST) Glucose, Urine Dipstick Negative Negative mg/dL [facility] Protein, Urine Dipstick 30(A) Negative mg/dL [facility] Bilirubin, Urine Dipstick Negative Negative mg/dL [facility] Comment: Clinical correlation required for positive Urine Bilirubin results as false positive may occur with some drugs and drug related products. If a false positive is suspected a serum total bilirubin should be considered if clinically indicated. Urobilinogen, Urine Dipstick Normal Normal mg/dL [facility] pH, Urn (dipstick) 5.5 5.0 - 8.0 [facility] Blood, Urine Dipstick Negative Negative mg/dL [facility] Ketone, Urine Dipstick Trace(A) Negative mg/dL [facility] Nitrite, Urine Dipstick Negative Negative [facility] Leukocytes, Urine Dipstick Small(A) Negative [facility] Appearance, Urine Dipstick Clear Clear [facility] Specific [place] Urine Automated 1.022 1.005 - 1.030 [facility] Color, Urine Dipstick Yellow Yellow [facility] Reflex to Culture Yes [facility] Clean Catch Urine 07/03/2022 2:00 PM EST 07/03/2022 2:29 PM EST Narrative Resulting Agency Comment Spec In Lab Markel Borjas MD URINE ORDERABLES [facility] [place] [address] * (ABNORMAL) Comprehensive metabolic panel (non-fasting) (07/03/2022 12:40 PM EST) Glucose 92 65 - 199 mg/dL [facility] Comment:Diabetes: >=200 mg/d L plus symptoms Blood Urea Nitrogen 22(H) 8 - 18 mg/dL [facility] Creatinine 0.80 0.70 - 1.20 mg/dL [facility] [...] mmol/L [facility] Carbon Dioxide 23 22 - 31 mmol/L [facility] Anion Gap 11 5 - 15 mmol/L [facility] Calcium 10.1 8.5 - 10.5 mg/dL [facility] Protein, Total 7.6 6.1 - 8.0 g/dL [facility] Albumin 4.1 3.2 - 5.2 g/dL [facility] Aspartate Aminotransferase 25 0 - 30 unit/L [facility] Alanine Aminotransferase 14 0 - 30 unit/L [facility] Alkaline Phosphatase 80 35 - 105 unit/L [facility] Bilirubin, Total 0.3 0.2 - 1.3 mg/dL [facility] Est Glomerular Filtration Rate 81 >=60 mL/min/1. 73 m?? [facility] [...] Lab Markel Borjas MD CHEMISTRY ORDERABL ES [facility] [place] [address] documented in this encounter Visit Diagnoses Diagnosis Chronic idiopathic neutropenia Other neutropenia Dysuria documented in this encounter Care Teams Hand Cell Tuber Relationship Specialty Start Date End Date Deborah Quiroga APRN PCP - General Family Medicine 03/24/16 02/04/23 documented as of this encounter
--- OUTSIDE RECORDS SUMMARY | 2024-03-14 14:09 | XMS_ITS | Encounter Summary ---
[place] [address] Care Team Providers Care Machine Engineer Name Role Phone Magdalena Acosta MD Primary Care Provider [phone] Encounter Details Date Type Department Care Team [...] PM EDT Office Visit Dermatology at [address] [place] [address] Marek Bonilla MD [address] [facility], [place] [address] documented as of this encounter Visit Diagnoses Not on filedocumented in this encounter Care Teams Machine Engineer Relationship Specialty Start Date End Date Magdalena Acosta MD [address] [place] [address] PCP - General Family Medicine 02/05/23 documented as of this encounter
--- OUTSIDE RECORDS SUMMARY | 2024-03-14 14:09 | XMS_ITS | Encounter Summary ---
[place] [address] Care Team Providers Care Transit Clerk Name Role Phone Ashley Quirogan Cornelius ANURAG Primary Care Provider [phone] Reason for Visit * Reason Comments Acrochordon Rosacea Encounter Details Date Type Department Care Team (Late st Contact Info) Description 12/05/2020 3:00 PM EDT Office Visit Dermatology at [address] [address] Marek Bonilla MD [address] [facility], [place] [address] Inflamed acrochordon Social History Tobacco Use Types [...] 4:15 PM EDT Office Visit Dermatology at [place] [address] [place] [address] Marek Bonilla MD [address] [facility], [facility] [place] [address] documented as of this encounter Visit Diagnoses Diagnosis Inflamed acrochordon Unspecified hypertrophic and atrophic condition of skin documented in this encounter Care Teams Transit Clerk Relationship Specialty Start Date End Date Deborah Quiroga APRN PCP - General Family Medicine 03/24/16 02/04/23 documented as of this encounter
--- OUTSIDE RECORDS SUMMARY | 2024-03-14 14:09 | XMS_ITS | Encounter Summary ---
[place] [address] Care Team Providers Care Food And Beverage Analyst Name Role Phone Deborah Quiroga APRN Primary Care Provider [phone] Encounter Details Date Type Department Care Team (Late st Contact Info) Description 06/05/2021 Interpretation Only [address] [address] Deborah Quiroga COMMUNICATIONS DEPARTMENT CHAIRPERSON [address] [address] Social History Tobacco Use Types Packs/Day Years [...] 4:15 PM EDT Office Visit Dermatology at [place] [address] [place] [address] Marek Bonilla MD [address] [facility], [place] [address] documented as of this encounter Procedures Procedure Name Priority Date/Time Associated Diagnosis Comments DXA CENTRAL SPINE, HIP, AND/OR WHOLE BODY (GENERIC) Routine 06/05/2021 11:58 AM EDT documented in this encounter Results * DXA Central Spine, Hip, and/or Whole Body (Generic) (06/05/2021 11:58 AM EDT) PT CLASS O RAD ADMITDTTM RAD PT RAD INFO [id number]^E VERETT^DEBORAH ^E RAD EXAM DESC XDXAC^DEXA SCAN AXIAL^RIS [facility] Anatomical Region Laterality Modality C-spine, Hip N/A [...] have questions please contact the health care services manager that requested your imaging first. ? Electronically signed by: Rocael Villatoro MD, [facility] ([phone]), at 06/05/2021 12:00 PM Narrative 06/05/2021 12:00 [...] who have questions please contactthe health care services manager that requested your imaging first. Deborah Quiroga APRN IMGerman DEXA ORDERABLES documented in this encounter Visit Diagnoses Not on filedocumented in this encounter Care Teams Food And Beverage Analyst Relationship Specialty Start Date End Date Deborah Quiroga APRN PCP - General Family Medicine 03/24/16 02/04/23 documented as of this encounter
--- OUTSIDE RECORDS SUMMARY | 2024-03-14 14:09 | XMS_ITS | Encounter Summary ---
Author Organization [facility] [place] [address] Care Team Providers Care Deck And Hull Assembler Name Role Phone Deborah Quiroga APRN Primary Care Provider [phone] Encounter Details Date Type Department Care Team (Late st Contact Info) Description 06/08/2022 Ancillary Procedure [place] [address] Deborah Quiroga, WOUND/OSTOMY CLINICAL NURSE SPECIALIST [address] [address] Social History Tobacco Use Types Packs/Day Years [...] PM EDT Office Visit Dermatology at [place] [address] [facility] [place] [address] Marek Bonilla MD [address] [facility], [place] [address] documented as of this encounter Procedures Procedure Name Priority Date/Time Associated Diagnosis Comments FILM LIBRARY STORAGE ONLY DX SPINE Routine 06/08/2022 12:00 AM EST documented in this encounter Results * Film Library- Storage Only DX Spine (06/08/2022 12:00 AM EST) Narrative SYLVIA - 06/18/2022 10:57 AM EST This exam is auto-finalizing. It's purpose is for storage only. Deborah Quiroga APRN IMG FILM LIBRARY OR DERABLES Performing Organization Address City/State/[facility] Co de Phone Number [place], [place] documented in this encounter Visit Diagnoses Not on filedocumented in this encounter Care Teams Deck And Hull Assembler Relationship Specialty Start Date End Date Deborah Quiroga APRN PCP - General Family Medicine 03/24/16 02/04/23 documented as of this encounter
--- OUTSIDE RECORDS SUMMARY | 2024-03-14 14:09 | XMS_ITS | Encounter Summary ---
[place] [address] Care Team Providers Care Heavy Duty Custodian Name Role Phone Deborah Quiroga APRN Primary Care Provider [phone] Encounter Details Date Type Department Care Team [...] PM EDT Office Visit Dermatology at [address] [place] [address] Marek Bonilla MD [address] [facility] [address], [place] [address] documented as of this encounter Visit Diagnoses Not on filedocumented in this encounter Care Teams Heavy Duty Custodian Relationship Specialty Start Date End Date Deborah Quiroga APRN PCP - General Family Medicine 03/24/16 02/04/23 documented as of this encounter
--- OUTSIDE RECORDS SUMMARY | 2024-03-14 14:09 | XMS_ITS | Encounter Summary ---
[place] [address] Care Team Providers Care Flatbed Company Driver Name Role Phone Magdalena Acosta MD Primary Care Provider [phone] Encounter Details Date Type Department Care Team [...] PM EDT Office Visit Dermatology at [address] [place] [address] Marek Bonilla MD [address] [facility], [place] [address] documented as of this encounter Visit Diagnoses Not on filedocumented in this encounter Care Teams Flatbed Company Driver Relationship Specialty Start Date End Date Magdalena Acosta MD [address] [place] [address] PCP - General Family Medicine 02/05/23 documented as of this encounter
--- OUTSIDE RECORDS SUMMARY | 2024-03-14 14:09 | XMS_ITS | Encounter Summary ---
Author Organization [facility] Address [facility] [place] [address] Care Team Providers Care Finance Lecturer Name Role Phone Junaid Deborah Shields APRN Primary Care Provider [phone] Encounter Details Date Type Department Care Team (Late st Contact Info) Description 03/01/2020 11:30 AM EDT Office Visit [place] [address] Patrick Borjas MD [facility] [address] [place]EM[place]Y [place] [address] Neutropenia, unspecified type Social History Tobacco Use [...] 03/01/2020 11:30 AM EDT Hematology Out[facility] [...] TOUCH PREP, CLOT SECTION, CORE ??BIOPSY); [OSR# [id number], COLLECTED 06/23/2016, 19 SLIDES]: ?1. 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 Extremities: No edema. Labs: Hgb= 12.4 Nxdb=351 ANC= 2.5 Imaging As above - reviewed [...] PM EDT Office Visit Dermatology at [address] [address] Marek Bonilla MD 580 [facility], [place] [address] documented as of this encounter Visit Diagnoses Diagnosis Neutropenia, unspecified type documented in this encounter Care Teams Finance Lecturer Relationship Specialty Start Date End Date Deborah Quiroga APRN PCP - General Family Medicine 03/24/16 02/04/23 documented as of this encounter
--- OUTSIDE RECORDS SUMMARY | 2024-03-14 14:09 | XMS_ITS | Encounter Summary ---
[facility] Organization [facility] [place] [address] Care Team Providers Care Assorter Name Role Phone Junaid Deborah Shields APRN Primary Care Provider [phone] Encounter Details Date Type Department Care Team (Latest Contact Info) Description 11/09/2022 10:37 AM EDT - 11/09/2022 4:53 PM EDT Hospital Encounter [place] [address] Nitesh Escobedo MD [facility] [place] [address] Aortic valve stenosis, etiology of cardiac valve [...] Center 02/05/2023 2:30 PM Marek Bonilla MD [facility] New Medications to be Picked Up None For questions regarding this document or issues relating to this hospitalization on the Medical Service, please contact your inpatient physician through the [facility] Director Of Student Affairs . Issues afterhours and on weekends will be handled by the Hospitalist staff on-call. * Attachments The following attachments cannot be sent through Care Everywhere. * Coronary Angiogram: Post-op (Grenadian) * Right Heart Catheterization: Pulmonary Artery Catheterization: Post-op (Grenadian) documented in this encounter Medications at Time [...] MD - 11/09/2022 11:20 AM EDT . [facility] Interventional Cardiology Adult Pre-Procedure H&P Update: Cardiac Catheterization Purnima Thacker [id number] 1955 Chief Complaint: BONILLA HPI: Purnima Thacker [...] Marrero MD Interventional Cardiology 11/09/22 11:43 AM [facility] Pager: [phone] documented in this encounter Plan of Treatment Upcoming Encounters Date Type Department Care Team (Late st Contact Info) Description 03/01/2025 4:15 PM EDT Office Visit Dermatology at [place] [address] [place] [phone] Marek Bonilla MD [address], [place] [address] documented as of this encounter Procedures Procedure Name Priority Date/Time Associated Diagnosis Comments CARDIAC CATHETERIZATION Routine 11/10/19 1:05 PM EDT Aortic valve stenosis, etiology of cardiac valve disease unspecified Cath Plmt Left Heart Cath & Arts W/Inj & Angio Img S&I ([id number]) 11/09/2022 11:51 AM EDT Aortic valve stenosis, etiology of cardiac valve disease unspecified EKG 12-LEAD Routine 11/09/2022 11:17 AM EDT Aortic valve stenosis, etiology of cardiac valve disease unspecified documented in this encounter Results * CARDIAC CATHETERIZATION (11/09/2022 1:05 PM EDT) Anatomical Region Laterality Modality Other Narrative 11/09/2022 2:01 PM EDT ?[facility] ? Cardiac Catheterization/Intervention Report ? Patient Name: Purnima Thacker. ? Procedure Date: 11/09/2022 ? A #: [id number] ? Primary Physician: Nitesh Escobedo ? Case #: [id number] ? File Name: [id number] ? Catheterization Order Number: [id number] ? [facility] ? Final Report [place], [place] ? Patient Name: ? Purnima M. Kirstie ? ID#: ?[id number] ? : ?1955 ? Procedure Date: ? [...] was designated as ASA Class III. The [facility] clinical frailty scale ?is 4: Vulnerable. [...] heart ?catheterization and oximetry. ? Nitesh Escobedo MKaylieD. ? Electronically Signed by: Nitesh Escobedo M.D. [...] (Bezet) 457 ms MUSE SYSTEM Calculated P [employer] 44 degrees MUSE SYSTEM Calculated R [employer] 33 degrees MUSE SYSTEM Calculated T [employer] 30 degrees MUSE SYSTEM INTERPRETATION Sinus rhythm Occasional Premature ventricular complexes Otherwise normal ECG When compared with ECG of 21-SEP-2016 12:26, Premature ventricular complexes are now Present [place] interval has decreased Nonspecific T wave abnormality has replaced inverted T waves in Inferior leads I personally reviewed the tracing and edited the fellows interpretation Confirmed by fellow MD Welsh Hanyuan ([id number]) on 11/09/2022 6:17:28 PM Confirmed by Elsa [...] infusion 200 mL/hr, Intravenous, CONTINUOUS, Starting on 11/09/22 at 1345, Until Wed11/09/22 at 1644, Recovery [...] (Intra-Procedure), Routine 1230 (Given - Provid er: Mayr Baig RN) iohexoL (Omnipaque) (350 mg/mL) solution [...] MD) documented in this encounter Care Teams Assorter Relationship Specialty Start Date End Date Deborah Quiroga, MARRIAGE AND FAMILY COUNSELOR PCP - General Family Medicine 03/24/16 02/04/23 documented as of this encounter
--- OUTSIDE RECORDS SUMMARY | 2024-03-14 14:10 | XMS_ITS | Encounter Summary ---
Author Organization [facility] Address [facility] [address] Care Team Providers Care Optical Goods Worker Name Role Phone Deborah Quiroga APRN Primary Care Provider [phone] Encounter Details Date Type Department Care Team (Late st Contact Info) Description 06/18/2017 11:00 AM EST Office Visit H[place]ology [place] [address] Markel Borjas MD [facility] [address] H[place]ATOLOG[place] [address] Neutropenia, unspecified type Social History Tobacco Use [...] AM EST Hematology Outpatient Clinic [facility] Hematology Outpatient Consult Note CC: [id number] [...] TOUCH PREP, CLOT SECTION, CORE ??BIOPSY); [OSR# [id number], COLLECTED 06/23/2016, 19 SLIDES]: ?1. ??Normocellular marrow [...] a clonal lymphoproliferative or myeloproliferative disorder (OSR# [id number]) Chromosome analysis on the marrow aspirate revealed [...] working the same job and participating in [employer] patients. Past Medical/Surgical History: 1. Leukopenia -element of neutropenia, as noted above 2. Aortic Stenosis -severe -AVR surgery 3. Hypercholesterolemia 4. Depression 5. Hypertension 6. 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 Extremities: No edema. Labs: Hgb= 13 Zgma=451 ANC= 0.6 Imaging As above - reviewed [...] 4:15 PM EDT Office Visit Dermatology at [place] [address] [place] [address] Marek Bonilla MD [address], [place] [address] documented as of this encounter Visit Diagnoses Diagnosis Neutropenia, unspecified type documented in this encounter Care Teams Optical Goods Worker Relationship Specialty Start Date End Date Deborah Quiroga APRN PCP - General Family Medicine 03/24/16 02/04/23 documented as of this encounter
--- OUTSIDE RECORDS SUMMARY | 2024-03-14 14:10 | XMS_ITS | Encounter Summary ---
[place] [address] Care Team Providers Care Tool And Die Engineer Name Role Phone Deborah Quiroga APRN Primary Care Provider Encounter Details Date Type Department Care Team (Late st Contact Info) Description 07/21/2017 Orders Only Hematology [place] [address] Alexandrea Greenwood RN Other neutropenia Social History [...] 4:15 PM EDT Office Visit Dermatology at [place] [address] [place] [address] Marek Bonilla MD [address], [place] [address] documented as of this encounter Visit Diagnoses Diagnosis Other neutropenia documented in this encounter Care Teams Tool And Die Engineer Relationship Specialty Start Date End Date Deborah Quiroga APRN PCP - General Family Medicine 03/24/16 02/04/23 documented as of this encounter
--- OUTSIDE RECORDS SUMMARY | 2024-03-14 14:10 | XMS_ITS | Encounter Summary ---
Author Organization [facility] [place] [address] Care Team Providers Care Carton Making Machinist Name Role Phone Ashley Quirogan Sylvia ANURAG Primary Care Provider [phone] Reason for Visit * Reason Onset Date Comments Results 12/03/2016 Encounter Details Date Type Department Care Team (Late Contact Info) Description 12/03/2016 Telephone Hematology [place] [phone] Yudith Valentine RN Results Social History Tobacco [...] EDT RN received call from Maddy at [facility] reporting critical WBC at 1.61, and ANC of 0.5. She will fax the full results to this office for credit review analyst notified DR Borjas of above results documented in this encounter Plan of Treatment Upcoming Encounters Date Type Department Care Team (Late st Contact Info) Description 03/01/2025 4:15 PM EDT Office Visit Dermatology at [address] [address] Marek Bonilla MD [address], [place] [address] documented as of this encounter Visit Diagnoses Not on filedocumented in this encounter Care Teams Carton Making Machinist Relationship Specialty Start Date End Date Deborah Quiroga APRN PCP - General Family Medicine 03/24/16 02/04/23 documented as of this encounter
--- OUTSIDE RECORDS SUMMARY | 2024-03-14 14:10 | XMS_ITS | Encounter Summary ---
Author Organization [facility] Address [facility] [place] [address] Care Team Providers Care Chronic Manager Name Role Phone Ashley Quirogan Sylvia ANURAG Primary Care Provider [phone] Reason for Referral * Consultation (Routine) - Specialty Diagnoses / Procedures Referred By Contact Referred To Contact Cardiac Rehabilitation Diagnoses S/P AVR Alirio Esparza MD [facility] [place] [address] Cardiac Rehab, [address] [place] [address] Referral ID Status Reason Start Date Expiration Date V isits Requested Visits Authorized [id number] Consult, Test & Treat 09/25/2016 03/24/2017 36 36 Reason for Visit * Auth/Cert Specialty Diagnoses / Procedures Referred By Crispin maxwell Referred To Contact Diagnoses Aortic stenosis Procedures PRO REPLACE AORT VALV, PROSTH VALV @REPLACE AORTIC VALVE, OPEN, W\CPB, W\PROSTHETIC VALVE (WRVU 41.32) Referral ID Status Reason Start Date Expiration Date Visits Re quested Visits Authorized [id number] 1 1 Encounter Details Date Type Department Care Team (Latest Contact Info) Description 09/21/2016 6:08 AM EST - 09/25/2016 4:33 PM EST Hospital Encounter Intermediate [place] [id number] Alirio Esparza MD [facility] [place] [address] Aortic valve stenosis, unspecified etiology; S/P AVR [...] Patient Age: 61 y.o. Birthdate: 1955 Language: Indonesian Race: White Ethnicity: Not nor Admit Date: 09/21/2016 Discharge Date: 09/25/2016 Attending Physician: Alirio Esparza MD Follow-up Recommendations for Providers: Please continue routine management of cardiovascular risk factors including blood pressure, lipids,glucose, etc. Please note any changes to medications. Patient to follow-up with PCP, Deborah Quiroga APRN, in 1-2 weeks. Patient to follow-up with Office Support, Dr. Antelmo Burrell, in two weeks. Patient to follow-up with Cardiac Surgery, Dr. Alirio Esparza, to be scheduled for before 10/19/2016, with CXR, EKG, and Echo. Inpatient Provider Contact Information: [facility] [phone] FAX [phone] Discharge Diagnoses (Hospital Problems) Primary Diagnoses: Secondary [...] 41.32) performed by Alirio Esparza MD at [facility] MA[facility] OR ??? Pro aortoplas for supravalv sten N/A 09/21/2016 @AORTOPLASTY FOR SUPRAVALVULAR STENOSIS (WRVU 29.33) performed by Alirio Esparza MD at [facility] MA[facility] OR Prior To Admission Medications [...] Hospital Course: Purnima Thacker was admitted to [facility] on 09/21/2016 via the Same Day [...] Alirio Esparza and/or the Cardiac Surgery Physician News Director Team may be reached at . Antibiotic prophylaxis: You will need to take antibiotics prior to many invasive tests and treatments, such as dental cleaning, which should be done every 6 months. Your primary care physician or your dentist can prescribe this medication. Please refer to the card with the [employer] Guidelines for more information. You have been provided with 3 copies of this card. Keep one for your self. Give one to your primary care physician and one to your dentist. Please refer to the [employer] Guidelines for more information. Good [...] Dr. Alirio Jones. You may use a Chadron Track or treadmill but avoid any pulling [...] should resume a low fat, low cholesterol, [place] Diet. Driving: No driving until [...] AM Markel Borjas MD [facility] [phone] Future Orders Complete By Expires Echocardiogram Transthoracic([facility]) [VJO735 Custom] 10/18/2016 (Approximate) 09/18/2017 Process Instructions: If the Echocardiogram is to be PERFORMED in a location other than [facility]--STOP and order [id number], Echocardiogram South/External. Scheduling Instructions: Questions: Is a Bubble Study requested?: No Does the patient have Congenital Heart Disease?: No Does patient require sedation?: None GA rationale: Should this service be billed to the research sponsor?: EKG 12 Lead [EKG1 Custom] 10/18/2016 (Approximate) 09/25/2017 Process Instructions: Scheduling Instructions: Questions: Which location will this be performed?: [facility] Is a rhythm strip needed?: No If EKG Reason is Pre-op Evaluation, indicate diagnosis for surgery.: Should this service be billed to the research sponsor?: XR Chest PA & Lateral (Generic) [[id number] Custom] 10/18/2016 (Approximate) 09/25/2017 Process Instructions: Scheduling Instructions: Questions: Where will study be performed?: [facility] Radiology Portable exam?: No Reason for exam and clinical history: s/p AVReplacement, patch annuloplasty 1 month f/u Other pertinent information: Stat read required?: Date of injury if applicable: Requested Time: Referral to Cardiac Rehab [[id number] Custom] As directed Process Instructions: If no progress note charted, please enter Clinical details in comments. Scheduling Instructions: Questions: My question or request is: s/p AVR. Cardiac rehab at [facility] Referral to Home Health - at DISCHARGE [FOB7743 CPT(R)] As directed Process Instructions: Scheduling Instructions: Comments: DOCUMENTATION FOR VNA SERVICES (INCLUDING THOSE PATIENTS WITH MEDICARE COVERAGE REQUIRING HOME VNA SERVICES AND/OR HOSPICE SERVICES) PATIENT'S LOCATION: Purnima Thacker [address] [place] [phone] (home) No relevant phone numbers on file. Manufacturing Analyst's Name: self In discussion with the attending physician, it is certified that this patient is under their care and that they, or a Nurse Practitioner, or Physician News Director who is working directly with them, hada [...] for services as follows: HOME HEALTH AGENCY: [facility]. PHONE: [phone] FAX: [phone] RN orders: Cardiopulmonary assessment, incisional assessment, assess [...] issues please call the Cardiac SurgeryOffice at [phone] FOR MEDICARE ONLY: In discussion with the [...] 09/30/16 Signed: Crispin Aranda PA-C 09/25/2016 [facility] [phone] FAX [phone] Date: 09/25/2016 CC: ANURAG Alford Caryn E, APRN [address] [place] [address] documented in this encounter Discharge Instructions * [...] Alirio Esparza and/or the Cardiac Surgery Physician News Director Team may be reached at . Antibiotic prophylaxis: You will need to take antibiotics prior to many invasive tests and treatments, such as dental cleaning, which should be done every 6 months. Your primary care physician or your dentist can prescribe this medication. Please refer to the card with the [employer] Guidelines for more information. You have been provided with 3 copies of this card. Keep one for your self. Give one to your primary care physician and one to your dentist. Please refer to the [employer] Guidelines for more information. Good [...] Dr. Alirio Jones. You may use a Chadron Track or treadmill but avoid any pulling [...] should resume a low fat, low cholesterol, [place] Diet. Driving: No driving until [...] PM EST Cardiac Surgery Progress Note: ID: [id number] S/p AVR, patch aortoplasty POD#2. PMH of [...] Gas) No results found for: PHART, PO2ART, EHP9JAO Assessment/Plan: TPW out this am. (+) BM. [...] Signed: Crispin Aranda PA-C 09/24/2016 Team pager: [phone]; [phone] after 5pm [facility] Section of Cardiac Surgery * Leonor Henson, GROUND MIXER - 09/23/2016 10:48 AM EST Cardiac Surgery Progress Note: ID: [id number] s/p AVR, patch aortoplasty POD#2. PMH of Neutropenia, HLD, HTN, Depression, obesity,. EF- 60% 24 Hour Events: transferred from [facility] to [facility], doing well, no overnight [...] Gas) No results found for: PHART, PO2ART, COS4EXW Assessment/Plan: s/p AVR, patch aortoplasty POD#2. PMH of Neutropenia, HLD, HTN, Depression, obesity, . Transferred from [facility] yesterday and doing well. Pathway. Will [...] Surgeon on rounds. Signed: Leonor Henson APRN [facility] Section of Cardiac Surgery Date: 09/23/2016 * Nico Palacios PA - 09/22/2016 9:56 AM EST Cardiac Surgery Progress Note: ID: [id number] s/p AVR, patch aortoplasty POD#1. PMH of [...] NT, ND, soft. Ext: Moves all extremities. [place], well perfused. Incisions: C/D/I Tubes/Lines/Drains: PIV, leanna, [...] Attending Surgeon on rounds. Signed: EKATERINA KIM [facility] Section of Cardiac Surgery Date: 09/22/2016 [...] Notes * Plan of Care - Joselyn Caceers RN - 09/25/2016 1:37 PM EST Problem: [...] health, home with outpatient services [facility] Pager: [phone] Inpatient Physical Therapy Patient status, treatment interventions, and goals discussed with student. I am in agreement with all details and associated flowsheet rows as documented and was present for all aspects of the patient treatment session. Nery Jaramillo, BOND RUNNER Pager [phone] Problem: Acute Rehab Services Goal & Intervention Plan Goal: Bed Mobility Goal Stand Alone Therapy Goal Outcome: Ongoing (Interventions Implemented as Appropriate) 09/22/16 16109/25/16 0947 Bed Mobility Goal Bed Mobility Goal, Time to Achieve 4 days -- Bed Mobility Goal, Activity Type scoot/bridge;supine to sit/sit to supine -- Bed Mobility Goal, Hawkins Level independent -- Bed Mobility Goal, Additional [...] Achieve 4 days -- Gait Training Goal, Hawkins Level independent -- Gait Training Goal, Distance [...] home with home health Lalitha BALTAZAR Pager: [phone] Inpatient Physical Therapy Patient status, treatment interventions, and goals discussed with student. I am in agreement with all details and associated flowsheet rows as documented and was present for all aspects of the patient treatment session. Nery Jaramillo PTA Pager [phone] Problem: Acute Rehab Services Goal & Intervention Plan Goal: Bed Mobility Goal Stand Alone Therapy Goal Outcome: Ongoing (Interventions Implemented as Appropriate) 09/22/16 1611 09/23/16 1412 Bed Mobility Goal Bed Mobility Goal, Time to Achieve 4 days -- Bed Mobility Goal, Activity Type scoot/bridge;supine to sit/sit to supine -- Bed Mobility Goal, Hawkins Level independent -- Bed Mobility Goal, Additional [...] Achieve 4 days -- Gait Training Goal, Hawkins Level independent -- Gait Training Goal, Distance [...] days -- Transfer Training Goal, Activity Type ylt-cv-xuter/jkcun-ct-lhr;her-cf-jzzci/jglhs-am-dbe -- Transfer Train Goal, Hawkins Level independent -- Transfer Training Goal, Additional [...] Outcome: Ongoing (Interventions Implemented as Appropriate) 09/23/16 5267 Coping/Psychosocial Plan Of Care Reviewed With patient [...] Another Service: (cardiac rehab) NICOLE HERNANDEZ, PT Pager:[phone] Inpatient Physical Therapy Problem: Acute Rehab Services Goal & Intervention Plan Goal: Bed Mobility Goal Stand Alone Therapy Goal Outcome: Ongoing (Interventions Implemented as Appropriate) 09/22/16 1611 Bed Mobility Goal Bed Mobility Goal, Time to Achieve 4 days Bed Mobility Goal, Activity Type scoot/bridge;supine to sit/sit to supine Bed Mobility Goal, Hawkins Level independent Bed Mobility Goal, Additional Goal able to abide sternal precautions during transfers Goal: Gait Training Goal Stand Alone Therapy Goal Outcome: Ongoing (Interventions Implemented as Appropriate) 09/22/16 1611 Gait Training Goal Gait Training Goal, Date Established 09/22/16 Gait Training Goal, Time to Achieve 4 days Gait Training Goal, Hawkins Level independent Gait Training Goal, Distance to Achieve ascend and descends 2 steps independently Goal: Goal Transfer Training Stand Alone Therapy Goal Outcome: Ongoing (Interventions Implemented as Appropriate) 09/22/16 1611 Goal Transfer Training Transfer Training Goal, Time to Achieve 4 days Transfer Training Goal, Activity Type efn-qs-idnzb/ykpdg-ac-rvc;svz-py-bjstx/wltgl-pr-gxy Transfer Train Goal, Hawkins Level independent Transfer Training Goal, Additional Goal [...] of completing AD's at home, chooses her insymu-lf-cwg, Martha Thacker (home) for her DPOAH, 2nd choice in friend[place] Current Coping/Education/Information Needs: patient sitting up in recliner, awake, alert, calmly answers questions appropriately, demonstrates understanding of her current health situation. She will be moving from [place] to [facility] later today. Current Functional Ability: 1 assist, [...] close by, Rashad & Raymond, and her zjzyhr-ke-bmn Martha Thacker who she has chosen to be her DPOA. Also has a friend Nitesh Leroy who lives in [place], [place], also her DPOAH choice. Behavioral Health History: none on file in [facility] Substance Use/Abuse: none on file in [facility] Other Pertinent/Service Specific Information: none Health/Prescription Coverage: Primary Insurance: Health [employer] Secondary Insurance: none Prescription Coverage: yes, per patient no issues Preferred Pharmacy: ?? Other: none Primary Care Provider: Deborah Quiroga APRN [phone] Patient/Caregiver Goals of Treatment: per medical team recommendations at discharge for CT surgery Potential Needs for Transition of Care: Rehab/SNF: TBD Home Health: TBD DME: no Dialysis: no Community Resources: non3 Transportation: ride home with a friend Other: none Anticipated Barriers to Discharge/Special Considerations: none anticipated at this time Plan: patient will need VNA services at discharge. The patient/manufacturer's representative has been provided a list of Home Health Agencies/DME vendors which servetheir preferred geographic area. A letter describing our affiliations was reviewed with them and they were educated about their right to choose where referrals are placed. Patient requests referral to: [facility]. PHONE: [phone] FAX: [phone] Expected date of discharge: Fri/Sat? CM called VNA to confirm referral, talked with VALDO Bunn/intake who stated she was familiar w/patient & would monitor her progress through curaspan. Referral routed to the Machine Adjuster Leader Case Trim for matching with agency/vendor and to provide any required information. A member of the Care Management team will continue to monitor progress, follow for continuity of care and assist with transition of care planning. Amanda Moreno RN Pager: [phone] * Op Note - Alirio Esparza MD - 09/21/2016 12:53 PM EST 09/23/2016 Purnima Thacker 1955 [id number] Preoperative Diagnosis: Symptomatic aortic stenosis Postoperative Diagnosis: Symptomatic aortic stenosis Procedure: Aortic valve replacement: Bovine Pericardial 25 mm Surgeon: Alirio Esparza M.D. News Director: Philip BALL Anesthesia: General endotracheal anesthesia Drains: [...] Operative Note Patient Name: Purnima Thacker : [id number] MR#: [id number] Case Date: 09/21/2016 Surgeon: Surgeon(s) and Role: * Alirio Esparza MD - Primary * Nico Palacios PA - Physician News Director Preoperative diagnosis: Postoperative diagnosis: Procedure(s) (LRB): @REPLACE [...] EDT Office Visit [facility] [place] [address] [place] [phone] Marek Bonilla MD [address] [facility] [place] [address] Scheduled Orders Name Type Priority Associated Diagnoses [...] IMPLANTABLE DEVICES SCAN 09/26/2016 12:00 AM EST FIRST AID NURSE SCAN 09/26/2016 12:00 AM EST POTASSIUM Routine [...] Routine 09/22/2016 4:00 AM EST CARDIAC ENZYMES ([facility]) Routine 09/22/2016 4:00 AM [...] SCAN EXT O RDR/RSLT * SCAN DOC: FIRST AID NURSE (09/26/2016 12:00 AM EST) Anatomical Region Laterality Modality Other Narrative 09/26/2016 12:00 AM EST Ordered by an unspecified provider. Scanning Provider MEDIA MGR SCAN EXT O RDR/RSLT * Potassium (09/25/2016 4:32 AM EST) Pathologist [facility] Potassium 4.4 3.5 - 5.0 mmol/L [facility] [...] ORDERABLE S [facility] [place] [address] * (ABNORMAL) Differential, Automated (09/24/2016 9:56 AM EST) Pathologist [facility] Neutrophil % 76.8 % [facility] Neutrophil Absolute 7.79(H) 1.70 - 6.10 x10(3)/mc L [facility] Lymph % 11.1 % [facility] Lymphocytes Abs 1.1 0.9 - 3.2 x10(3)/mc L [facility] Monocyte % 8.5 % [facility] Monocyte Abs 0.9 0.3 - 0.9 x10(3)/mc L [facility] Eos % 0.5 % [facility] Eosinophils Abs 0.0 0.0 - 0.4 x10(3)/mc L [facility] Basophil % 0.2 % [facility] Baso Absolute 0.0 0.0 - 0.1 x10(3)/mc L [facility] [...] Absolute 0.29(H) 0.00 - 0.04 x10(3)/mc L [facility] Blood specimen (specimen) 09/24/2016 9:56 AM EST 09/24/2016 10:04 AM EST Narrative Resulting Agency Comment Spec In Lab Alirio Esparza MD HEMATOLOGY ORDERABL ES Performing Organization Address City/State/[facility] Co de Phone Number [facility] [place] [address] * (ABNORMAL) Hemogram (09/24/2016 9:56 AM EST) White Blood Cell 10.1(H) 4.0 - 9.5 x10(3)/ L [facility] Red Blood Cell 2.87(L) 4.00 - 5.21 x10(6)/mc L [facility] Hemoglobin 9.4(L) 11.7 - 15.5 gm/dL [facility] Hematocrit 28.3(L) 35.7 - 45.8 % [facility] Mean Cell Volume 98.6(H) 82.6 - 94.4 fL [facility] Mean Cell Hemoglobin 32.8(H) 27.1 - 32.0 pg [facility] Mean Cell Hemoglobin Concentration 33.2 31.7 - 35.0 gm/dL [facility] Platelet 141(L) 145 - 357 x10(3)/ L [facility] RDW Standard Deviation 45.0 37.0 - 46.0 fL [facility] RDW coefficient of variation 12.6 11.5 - 14.1 % [facility] Mean Platelet Volume 9.4 7.6 - 12.9 fL [facility] NRBC% auto 1.1 % [facility] NRBC Absolute 0.110(H) 0.000 - 0.000 x10(3)/mc L [facility] Blood specimen (specimen) 09/24/2016 9:56 AM EST 09/24/2016 10:04 AM EST Narrative Resulting Agency Comment Spec In Lab Alirio Esparza MD HEMATOLOGY ORDERABL ES [facility] [place] [address] * (ABNORMAL) Basic Metabolic Panel (non-fasting) (09/24/2016 9:56 AM EST) Glucose 111 65 - 199 mg/dL [facility] Comment:Diabetes: >=200 mg/d L plus symptoms Blood Urea Nitrogen 23(H) 8 - 18 mg/dL [facility] Est Glomerular Filtration Rate >60 >=60 [facility] Comment: This estimated [...] the following links into your internet browser. [email or web address] Blood specimen (specimen) 09/24/2016 9:56 AM EST 09/24/2016 10:04 AM EST Narrative Resulting Agency Comment Spec In Lab Alirio Esparza MD CHEMISTRY ORDERABLE S [facility] [place] [id number] * XR Chest PA & Lateral (Generic) [...] ORDERABLE S Performing Organization Address [facility]/ZIP Co de Phone Number [facility] [place] [address] * POCT Glucose (09/22/2016 8:17 AM EST) Glucose, POC 131 65 - 199 mg/dL [facility] Comment: Supplemental ranges: <140 mg/dL before meals <180 mg/dL all other times of the day Blood specimen (specimen) 09/22/2016 8:17 AM EST 09/22/2016 8:17 AM EST Alirio Esparza MD POINT OF CARE TEST ORDERABLES [facility] [place] [address] * POCT Glucose (09/22/2016 4:01 AM EST) Glucose, POC 135 65 - 199 mg/dL [facility] Comment: Supplemental ranges: <140 mg/dL before meals <180 mg/dL all other times of the day Blood specimen (specimen) 09/22/2016 4:01 AM EST 09/22/2016 4:01 AM EST Alirio Esparza MD POINT OF CARE TEST ORDERABLES Performing Organization Address [facility] Co de Phone Number [facility] [place] [address] * Scan, Peripheral Blood (09/22/2016 4:00 AM EST) Plat estimate Normal [facility] RBC Morphology Abnormal [facility] Macrocyte 1-5 /HPF [facility] Plat, Giant Less than 1 /HPF [facility] Blood specimen (specimen) 09/22/2016 4:00 AM EST 09/22/2016 4:34 AM EST Narrative Resulting Agency Comment Spec In Lab Alirio Esparza MD HEMATOLOGY ORDERABL ES Performing Organization Address [facility] Phone Number [facility] [place] [address] * Electrolytes panel (09/22/2016 4:00 AM EST) Sodium 145 135 - 145 mmol/L [facility] [...] [facility] Carbon Dioxide 24 22 - 31 mmol/L [facility] Anion Gap 14 5 - 15 mmol/L [facility] Blood specimen (specimen) Venous Draw / Unknown 09/22/2016 4:00 AM EST 09/22/2016 4:34 AM EST Narrative Resulting Agency Comment Spec In Lab Alirio Esparza MD CHEMISTRY ORDERABLE S Performing Organization Address [facility] [place] [place] [address] * (ABNORMAL) Differential, Automated (09/22/2016 4:00 AM EST) [facility] Neutrophil % 70.9 % [facility] Neutrophil Absolute 5.33 1.70 - 6.10 x10(3)/ L [facility] Lymph % 9.1 % [facility] Lymphocytes Abs 0.7(L) 0.9 - 3.2 x10(3)/ L [facility] Monocyte % 18.0 % [facility] Monocyte Abs 1.4(H) 0.3 - 0.9 x10(3)/ L [facility] Eos % 0.0 % [facility] Eosinophils Abs 0.0 0.0 - 0.4 x10(3)/[facility] Basophil % 0.1 % [facility] Baso Absolute 0.0 0.0 - 0.1 x10(3)/ L [facility] Immature Gran % 1.90 % [facility] Comment: Immature granulocytes(IG's)percentage and absolute count will include metamyelocytes, myelocytes, and promyelocytes. Blood smears from CBCs yielding IG's will be scanned manually for concordance. If this scan disagrees with the automated IG or if promyelocytes are noted, a manual differential will be performed. Immature Gran Absolute 0.14(H) 0.00 - 0.04 x10(3)/ L [facility] Blood specimen (specimen) 09/22/2016 4:00 AM EST 09/22/2016 4:34 AM EST Narrative Resulting Agency Comment Spec In Lab Alirio Esparza MD [place] [address] * (ABNORMAL) Hemogram (09/22/2016 4:00 AM EST) [facility] White Blood Cell 7.5 4.0 - 9.5 x10(3)/ L [facility] Red Blood Cell 2.93(L) 4.00 - 5.21 x10(6)/mc L [facility] Hemoglobin 9.2(L) 11.7 - 15.5 gm/dL [facility] Hematocrit 28.0(L) 35.7 - 45.8 % [facility] Mean Cell Volume 95.6(H) 82.6 - 94.4 fL [facility] Mean Cell Hemoglobin 31.4 27.1 - 32.0 pg [facility] Mean Cell Hemoglobin Concentration 32.9 31.7 - 35.0 gm/dL [facility] Platelet 161 145 - 357 x10(3)/[facility] LABORATORY RDW Standard Deviation 44.0 37.0 - 46.0 [facility] LABORATORY RDW coefficient of variation 12.6 11.5 - 14.1 % [facility] Mean Platelet Volume 9.3 7.6 - 12.9 fL [facility] NRBC% auto 0.3 % [facility] NRBC Absolute 0.020(H) 0.000 - 0.000 x10(3)/[facility]ORY Blood specimen (specimen) 09/22/2016 4:00 AM EST 09/22/2016 4:34 AM EST Narrative Resulting Agency Comment Spec In Lab Alirio Esparza MD HEMATOLOGY ORDERABL ES [facility] [place] [address] * (ABNORMAL) Cardiac Enzymes (09/22/2016 4:00 AM EST) Pathologist [facility] Troponin-T 0.13(H) <=0.03 ng/mL [facility] Comment: 0.03 ng/mL: Represents the 99th percentile upper reference limit for normals. >0.03 ng/mL: Elevated cardiac troponin T level indicative of myocardial damage. Diagnosis of acute, evolving or recent [place] requires a typical rise and gradual fall [...] consensus document of the Joint Society of Cardiology/[place] [employer] Committee for the redefinition of myocardial infarction. ??Journal of the [place] College [employer] 2000; 36: 959-969] Creatine Kinase 338(H) 0 - 160 unit/L [facility] Blood specimen (specimen) 09/22/2016 4:00 AM EST 09/22/2016 4:34 AM EST Narrative Resulting Agency Comment Spec In Lab Alirio Esparza MD CHEMISTRY ORDERABLE S [facility] [place] [address] * (ABNORMAL) Glucose, fasting (09/22/2016 4:00 AM [...] of Diabetes Mellitus, Position Statement from the [place] [employer]. ??Diabetes Care, Volume 33, Supplement 1, Aug 2009 Blood specimen (specimen) 09/22/2016 4:00 AM EST 09/22/2016 4:34 AM EST Narrative Resulting Agency Comment Spec In Lab Alirio Esparza MD CHEMISTRY ORDERABLE S Performing Organization Address [facility] Co de Phone Number [facility] [place] [address] * (ABNORMAL) Creatinine (09/22/2016 4:00 AM EST) Creatinine 0.69(L) 0.70 - 1.20 mg/dL [facility] Comment: Please note that the pediatric reference intervals supplied above were not validated at [facility]. Results from pediatric patients should be interpreted in conjunction to the patient's age, height and muscle mass. Est Glomerular Filtration Rate >60 >=60 [facility] Comment: This estimated [...] the following links into your internet browser. [email or web address] Blood specimen (specimen) 09/22/2016 4:00 AM EST 09/22/2016 4:34 AM EST Narrative Resulting Agency Comment Spec In Lab Alirio Esparza MD CHEMISTRY ORDERABLE S Performing Organization Address [facility] Co de Phone Number [facility] [place] [address] * BUN (09/22/2016 4:00 AM EST) Blood Urea Nitrogen 10 8 - 18 mg/dL [facility] Blood specimen (specimen) 09/22/2016 4:00 AM EST 09/22/2016 4:34 AM EST Narrative Resulting Agency Comment Spec In Lab Alirio Esparza MD CHEMISTRY ORDERABLE S Performing Organization Address [facility] Co de Phone Number [facility] [place] [address] * POCT Glucose (09/21/2016 9:59 PM EST) Glucose, POC 146 65 - 199 mg/dL [facility] Comment: Supplemental ranges: <140 mg/dL before meals <180 mg/dL all other times of the day Blood specimen (specimen) 09/21/2016 9:59 PM EST 09/21/2016 9:59 PM EST Alirio Espazra MD POINT OF CARE TEST ORDERABLES Performing Organization Address [facility] Co de Phone Number [facility] [place] [address] * POCT Glucose (09/21/2016 7:26 PM EST) Glucose, POC 152 65 - 199 mg/dL [facility] Comment: Supplemental ranges: <140 mg/dL before meals <180 mg/dL all other times of the day Blood specimen (specimen) 09/21/2016 7:26 PM EST 09/21/2016 7:26 PM EST Alirio Esparza MD POINT OF CARE TEST ORDERABLES Performing Organization Address [facility] Co de Phone Number [facility] [place] [address] * POCT Glucose (09/21/2016 6:00 PM EST) Glucose, POC 146 65 - 199 mg/dL [facility] Comment: Supplemental ranges: <140 mg/dL before meals <180 mg/dL all other times of the day Blood specimen (specimen) 09/21/2016 6:00 PM EST 09/21/2016 6:00 PM EST Alirio Esparza MD POINT OF CARE TEST ORDERABLES [facility] [place] [address] * (ABNORMAL) BLOOD GAS 2 ARTERIAL (09/21/2016 4:42 PM EST) pH, Arterial 7.35(L) 7.35 - 7.45 [facility] PCO2, Arterial 48(H) 35 - 45 mmHg [facility] PO2, Arterial 108(H) 85 - 104 mmHg [facility] Bicarbonate, Arterial 26.0 20.0 - 26.0 mmol/L [facility] Base Excess, Arterial 0.5 -3.0 - 3.0 mmol/L [facility] Hgb Blood Gas 10.4(L) 11.7 - 15.5 gm/dL [facility] Oxyhemoglobin, Arterial 96.2 94.0 - 97.0 % [facility] Carboxyhemoglob in, Arterial 0.0 % [facility] Comment: Nonsmokers: 0.5-1.5% COHB Smokers: Variable, but usually less than 10% Toxic: 20-30% COHB Lethal: Greater than 60% COHB Methemoglobin, Arterial 0.7 <=1.5 % [facility] [...] [facility]ENTER [facility] FIO2 Art 40 % [facility] PF Ratio Art 270 [facility] Blood specimen (specimen) 09/21/2016 4:42 PM EST 09/21/2016 4:42 PM EST Alirio Esparza MD POINT OF CARE TEST ORDERABLES Performing Organization Address City/[facility]/ZIP Co de Phone Number [facility] [place] [address] * POCT Glucose (09/21/2016 4:07 PM EST) Glucose, POC 150 65 - 199 mg/dL [facility] Comment: Supplemental ranges: <140 mg/dL before meals <180 mg/dL all other times of the day Blood specimen (specimen) 09/21/2016 4:07 PM EST 09/21/2016 4:07 PM EST Alirio Esparza MD POINT OF CARE TEST ORDERABLES Performing Organization Address [facility]/ZIP Co de Phone Number [facility] [place] [address] * (ABNORMAL) Hemoglobin (09/21/2016 4:05 PM EST) [facility] Hemoglobin 9.9(L) 11.7 - 15.5 gm/dL [facility] Blood specimen (specimen) 09/21/2016 4:05 PM EST 09/21/2016 4:20 PM EST Narrative Resulting Agency Comment Spec In Lab Alirio Esparza MD HEMATOLOGY ORDERABL ES Performing Organization Address [facility] Co de Phone Number [facility] [place] [address] * Potassium (09/21/2016 4:05 PM EST) [facility] Potassium 4.6 3.5 - 5.0 mmol/L [facility] [...] ORDERABLE S Performing Organization Address [facility] Co de Phone Number [facility] [place] [address] * POCT Glucose (09/21/2016 2:52 PM EST) Glucose, POC 117 65 - 199 mg/dL [facility] Comment: Supplemental ranges: <140 mg/dL before meals <180 mg/dL all other times of the day Blood specimen (specimen) 09/21/2016 2:52 PM EST 09/21/2016 2:52 PM EST Alirio Esparza MD POINT OF CARE TEST ORDERABLES Performing Organization Address [facility] Co de Phone Number [facility] [place] [address] * POCT Glucose (09/21/2016 1:51 PM EST) Glucose, POC 108 65 - 199 mg/dL [facility] Comment: Supplemental ranges: <140 mg/dL before meals <180 mg/dL all other times of the day Blood specimen (specimen) 09/21/2016 1:51 PM EST 09/21/2016 1:51 PM EST Alirio Esparza MD POINT OF CARE TEST ORDERABLES Performing Organization Address [facility] Co de Phone Number [facility] [place] [address] * POCT Glucose (09/21/2016 12:54 PM EST) Glucose, POC 128 65 - 199 mg/dL [facility] Comment: Supplemental ranges: <140 mg/dL before meals <180 mg/dL all other times of the day Blood specimen (specimen) 09/21/2016 12:54 PM EST 09/21/2016 12:54 PM EST Alirio Esparza MD POINT OF CARE TEST ORDERABLES Performing Organization Address [facility] Co de Phone Number [facility] [place] [address] * EKG 12 Lead (09/21/2016 12:26 PM EST) Ventricular rate 87 BPM MUSE SYSTEM Atrial Rate 87 BPM MUSE SYSTEM P-R Interval 256 ms MUSE SYSTEM QRS Duration 90 ms MUSE SYSTEM Q-T Interval 406 ms MUSE SYSTEM QTC Calculated (Bezet) 488 ms MUSE SYSTEM Calculated P [place] 24 degrees MUSE SYSTEM Calculated R [place] 21 degrees MUSE SYSTEM Calculated T [place] -5 degrees MUSE SYSTEM INTERPRETATION Sinus rhythm with 1st degree A-V block Nonspecific T wave abnormality Prolonged QT Abnormal ECG When compared with ECG of 19-MAY-2016 11:43, [place] interval has increased T wave inversion now evident in inferior and midanterior leads Confirmed by MD FRANKLYN, MARLEN ([id number]) on 09/21/2016 1:40:59 PM MUSE SYSTEM 09/21/2016 12:2 6 PM EST 09/21/2016 1:40 PM EST Alirio Esparza MD ECG ORDERABLES Performing Organization Address [facility] Phone Number MUSE SYSTEM * XR Chest [...] course of the esophagus and below the [id number]. There is a right IJ PA catheter [...] the course of theesophagus and below the [id number]. There is a right IJ PA catheter [...] EST) pH, Arterial 7.41 7.35 - 7.45 [facility] PCO2, Arterial 42 35 - 45 mmHg [facility] PO2, Arterial 356(H) 85 - 104 mmHg [facility] Bicarbonate, Arterial 26.2(H) 20.0 - 26.0 mmol/L [facility] Base Excess, Arterial 1.6 -3.0 - 3.0 mmol/L [facility] Hgb Blood Gas 10.7(L) 11.7 - 15.5 gm/dL [facility] Oxyhemoglobin, Arterial 98.1(H) 94.0 - 97.0 % [facility] Carboxyhemoglob in, Arterial 0.3 % [facility] Comment: Nonsmokers: 0.5-1.5% COHB Smokers: Variable, but usually less than 10% Toxic: 20-30% COHB Lethal: Greater than 60% COHB Methemoglobin, Arterial 0.8 <=1.5 % [facility] [...] [facility]ENTER [facility] FIO2 Art 100 % [facility] PF Ratio Art 356 [facility] Blood specimen (specimen) 09/21/2016 12:20 PM EST 09/21/2016 12:20 PM EST Alirio Esparza MD POINT OF CARE TEST ORDERABLES Performing Organization Address City/State/[facility] Co de Phone Number [facility] [place] [address] * (ABNORMAL) BLOOD GAS 2 ARTERIAL (09/21/2016 10:54 AM EST) pH, Arterial 7.43 7.35 - 7.45 [facility] PCO2, Arterial 40 35 - 45 mmHg [facility] PO2, Arterial 297(H) 85 - 104 mmHg [facility] Bicarbonate, Arterial 26.0 20.0 - 26.0 mmol/L [facility] Base Excess, Arterial 1.6 -3.0 - 3.0 mmol/L [facility] Hgb Blood Gas 8.6(L) 11.7 - 15.5 gm/dL [facility] Oxyhemoglobin, Arterial 98.6(H) 94.0 - 97.0 % [facility] Carboxyhemoglob in, Arterial 0.5 % [facility] Comment: Nonsmokers: 0.5-1.5% COHB Smokers: Variable, but usually less than 10% Toxic: 20-30% COHB Lethal: Greater than 60% COHB Methemoglobin, Arterial 0.3 <=1.5 % [facility] [...] [facility]ENTER [facility] FIO2 Art 95 % [facility] Flow Art 0.7 LPM [facility] PF Ratio Art 313 [facility] Temp Art 36.7 Celsius [facility] Blood specimen (specimen) 09/21/2016 10:54 AM EST 09/21/2016 10:54 AM EST Alirio Esparza MD POINT OF CARE TEST ORDERABLES [facility] [place] [address] * Thrombin time (09/21/2016 10:50 AM EST) [...] ORDERABLE S Performing Organization Address City/[facility] Co de Phone Number [facility] [place] [address] * Fibrinogen (09/21/2016 10:50 AM EST) [facility] Signature Fibrinogen 228 180 - 510 mg/dL [facility] [...] ORDERABLE S Performing Organization Address [facility] Co de Phone Number [facility] [place] [address] * APTT (09/21/2016 10:50 AM EST) Partial Thromboplastin Time 32 25 - 35 sec [facility] [...] ORDERABLE S Performing Organization Address [facility] Co de Phone Number [facility] [place] [address] * (ABNORMAL) Prothrombin Time (09/21/2016 10:50 AM EST) Prothrombin Time 18.7(H) 12.0 - 15.0 sec [facility] [...] International Normalization Ratio 1.5(H) 0.9 - 1.1 [facility] Blood specimen (specimen) 09/21/2016 10:50 AM EST 09/21/2016 10:56 AM EST Narrative Resulting Agency Comment Spec In Lab Luis Enrique Quarles MD HEMATOLOGY ORDERABLE S Performing Organization Address [facility] Co de Phone Number [facility] [place] [address] * (ABNORMAL) Hemogram (09/21/2016 10:50 AM EST) Pathologist [facility] White Blood Cell 14.7(H) 4.0 - 9.5 x10(3)/mc L [facility] Red Blood Cell 2.40(L) 4.00 - 5.21 x10(6)/mc L [facility] Hemoglobin 7.9(L) 11.7 - 15.5 gm/dL [facility] Hematocrit 23.2(L) 35.7 - 45.8 % [facility] Comment: This result has been called to MICHELLE GRIGSBY by ASHU MORENO on 09 21 2016 at 1102, and has been read back. Mean Cell Volume 96.7(H) 82.6 - 94.4 fL [facility] Mean Cell Hemoglobin 32.9(H) 27.1 - 32.0 pg [facility] Mean Cell Hemoglobin Concentration 34.1 31.7 - 35.0 gm/dL [facility] Platelet 117(L) 145 - 357 x10(3)/mc L [facility] RDW Standard Deviation 42.6 37.0 - 46.0 fL [facility] RDW coefficient of variation 12.1 11.5 - 14.1 % [facility] Mean Platelet Volume 9.2 7.6 - 12.9 fL [facility] NRBC% auto 0.1 % [facility] NRBC Absolute 0.020(H) 0.000 - 0.000 x10(3)/mc L [facility] Blood specimen (specimen) 09/21/2016 10:50 AM EST 09/21/2016 10:56 AM EST Narrative Resulting Agency Comment Spec In Lab Luis Enrique Quarles MD HEMATOLOGY ORDERABLE S Performing Organization Address City/[facility]/ZIP Co de Phone Number [facility] [place] [phone] * Prepare Platelets, Apheresis (09/21/2016 10:30 AM EST) Pathologist [facility] Dispensed? Yes [facility] Blood specimen (specimen) 09/21/2016 10:30 AM EST 09/21/2016 10:28 AM EST Alirio Esparza MD BLOOD BANK PRODUCT ORDERABLES Performing Organization Address City/[facility]/ZIP Co de Phone Number [facility] [place] [address] * (ABNORMAL) BLOOD GAS 2 ARTERIAL (09/21/2016 10:05 AM EST) pH, Arterial 7.33(L) 7.35 - 7.45 [facility] PCO2, Arterial 54(Critic al) 35 - 45 mmHg [facility] Comment:Noted by instrumental teacher. PO2, Arterial 218(H) 85 - 104 mmHg [facility] Bicarbonate, Arterial 27.9(H) 20.0 - 26.0 mmol/L [facility] Base Excess, Arterial 2.0 -3.0 - 3.0 mmol/L [facility] Hgb Blood Gas 8.6(L) 11.7 - 15.5 gm/dL [facility] Oxyhemoglobin, Arterial 98.4(H) 94.0 - 97.0 % [facility] Carboxyhemoglo bin, Arterial 0.5 % [facility] Comment: Nonsmokers: 0.5-1.5% COHB Smokers: Variable, but usually less than 10% Toxic: 20-30% COHB Lethal: Greater than 60% COHB Methemoglobin, Arterial 0.3 <=1.5 % [facility] Na Whole Blood 129(L) 135 - 145 mmol/L [facility] K Whole Blood 6.2(Criti gabrielle) 3.5 - 5.0 mmol/L [facility] Comment: Noted by instrumental teacher. Please note: Patients with WBC >100,000 may [...] MEDICAL CENTER LABORAT[facility] Temp Art 37.0 Celsius [facility] Blood specimen (specimen) 09/21/2016 10:05 AM EST 09/21/2016 10:05 AM EST Alirio Esparza MD POINT OF CARE TEST ORDERABLES [facility] [place] [address] * (ABNORMAL) BLOOD GAS 2 ARTERIAL (09/21/2016 9:44 AM EST) pH, Arterial 7.22(Criti gabrielle) 7.35 - 7.45 [facility] Comment:Noted by instrumental teacher. PCO2, Arterial 70(Critica l) 35 - 45 mmHg [facility] Comment:Noted by instrumental teacher. PO2, Arterial 224(H) 85 - 104 mmHg [facility] Bicarbonate, Arterial 27.8(H) 20.0 - 26.0 mmol/L [facility] Base Excess, Arterial 0.0 -3.0 - 3.0 mmol/L [facility] Hgb Blood Gas 8.7(L) 11.7 - 15.5 gm/dL [facility] Oxyhemoglobin, Arterial 98.5(H) 94.0 - 97.0 % [facility] Carboxyhemoglob in, Arterial 0.6 % [facility] Comment: Nonsmokers: 0.5-1.5% COHB Smokers: Variable, but usually less than 10% Toxic: 20-30% COHB Lethal: Greater than 60% COHB Methemoglobin, Arterial 0.3 <=1.5 % [facility] [...] City/[facility]/ZIP Co de Phone Number [facility] [place] [address] * (ABNORMAL) Hemoglobin (09/21/2016 9:42 AM EST) Hemoglobin 7.2(L) 11.7 - 15.5 gm/dL [facility] Blood specimen (specimen) 09/21/2016 9:42 AM EST 09/21/2016 9:51 AM EST Narrative Resulting Agency Comment Spec In Lab Alirio Esparza MD HEMATOLOGY ORDERABL ES Performing Organization Address [facility] Co de Phone Number [facility] [place] [address] * Platelet count (09/21/2016 9:42 AM EST) Platelet 159 145 - 357 x10(3)/mc L [facility] Immature Plt % 1.6 0.0 - 7.4 % [facility] Comment: Limitation of the Immature Platelet Fraction (IPF)-May be less reliable when the platelet count is less than 44t041/uL due to statistical imprecision. The IPF value [...] in a decreased state of production. References: [employer] The Clinical Value of the Immature Platelet Fraction (IPF) in Cell Recovery Document Number 10-1143 12/2010 [employer] The Role of the Immature Platelet Fraction (IPF) in the Differential Diagnosis of Thrombocytopenia, Document [id number] V012/11/13 P012/13 Blood specimen (specimen) 09/21/2016 9:42 AM EST 09/21/2016 9:51 AM EST Narrative Resulting Agency Comment Spec In Lab Alirio Esparza MD HEMATOLOGY ORDERABL ES Performing Organization Address [facility] de Phone Number [facility] [place] [address] * (ABNORMAL) Hematocrit (09/21/2016 9:42 AM EST) [...] MD HEMATOLOGY ORDERABL ES Performing Organization Address [facility] Phone Number [facility] [place] [address] * Fibrinogen (09/21/2016 9:42 AM EST) Fibrinogen [...] Organization Address [facility] Co de Phone Number [facility] [place] [address] * (ABNORMAL) BLOOD GAS 2 ARTERIAL (09/21/2016 9:10 AM EST) pH, Arterial 7.36 7.35 - 7.45 [facility] PCO2, Arterial 48(H) 35 - 45 mmHg [facility] PO2, Arterial 295(H) 85 - 104 mmHg [facility] Bicarbonate, Arterial 26.0 20.0 - 26.0 mmol/L [facility] Base Excess, Arterial 0.5 -3.0 - 3.0 mmol/L [facility] Hgb Blood Gas 8.0(L) 11.7 - 15.5 gm/dL [facility] Oxyhemoglobin, Arterial 98.3(H) 94.0 - 97.0 % [facility] Carboxyhemoglob in, Arterial 1.0 % [facility] Comment: Nonsmokers: 0.5-1.5% COHB Smokers: Variable, but usually less than 10% Toxic: 20-30% COHB Lethal: Greater than 60% COHB Methemoglobin, Arterial 0.3 <=1.5 % [facility] [...] [facility]ICAL CENTER [facility] Temp Art 37.0 Celsius [facility] Blood specimen (specimen) 09/21/2016 9:10 AM EST 09/21/2016 9:10 AM EST Alirio Esparza MD POINT OF CARE TEST ORDERABLES Performing Organization Address City/State/[facility] Co de Phone Number [facility] [place] [address] * Surgical Pathology Report (09/21/2016 9:09 AM EST) Final Diagnosis [id number] ?Location: 3T The signing pathologist has (i) [...] ?. (R1) ??ADELITA 09/24/2016 9:32 AM EST [facility] AORTIC STRUCTURE / Unknown 09/21/2016 9:09 AM EST 09/21/2016 9:09 AM EST Alirio Esparza MD PATHOLOGY/[place] [address] * Specimen to Pathology (surgical or derm) (09/21/2016 9:09 AM EST) AP Specimen 09/21/2016 9:09 AM EST 09/21/2016 9:09 AM EST Narrative [facility] - 09/21/2016 9:09 AM EST Specimen requisition ordered. ??Separate Pathology report to follow Alirio Esparza MD PATHOLOGY/CYTOLOGY ORDERABLES Performing Organization Address [facility] [place] [address] * (ABNORMAL) BLOOD GAS 2 ARTERIAL (09/21/2016 8:50 AM EST) pH, Arterial 7.41 7.35 - 7.45 [facility] PCO2, Arterial 33(L) 35 - 45 mmHg [facility] PO2, Arterial 348(H) 85 - 104 mmHg [facility] Bicarbonate, Arterial 20.6 20.0 - 26.0 mmol/L [facility] Base Excess, Arterial -4.1(L) -3.0 - 3.0 mmol/L [facility] Hgb Blood Gas 9.5(L) 11.7 - 15.5 gm/dL [facility] Oxyhemoglobin, Arterial 98.8(H) 94.0 - 97.0 % [facility] Carboxyhemoglob in, Arterial 0.3 % [facility] Comment: Nonsmokers: 0.5-1.5% COHB Smokers: Variable, but usually less than 10% Toxic: 20-30% COHB Lethal: Greater than 60% COHB Methemoglobin, Arterial 0.3 <=1.5 % [facility] [...] OF CARE TEST ORDERABLES Performing Organization Address City/State/[facility] Co de Phone Number [facility] [place] [address] * (ABNORMAL) BLOOD GAS 2 ARTERIAL (09/21/2016 8:18 AM EST) pH, Arterial 7.42 7.35 - 7.45 [facility] PCO2, Arterial 36 35 - 45 mmHg [facility] PO2, Arterial 283(H) 85 - 104 mmHg [facility] Bicarbonate, Arterial 22.8 20.0 - 26.0 mmol/L [facility] Base Excess, Arterial -2.0 -3.0 - 3.0 mmol/L [facility] Hgb Blood Gas 12.6 11.7 - 15.5 gm/dL [facility] Oxyhemoglobin, Arterial 99.0(H) 94.0 - 97.0 % [facility] Carboxyhemoglob in, Arterial 0.6 % [facility] Comment: Nonsmokers: 0.5-1.5% COHB Smokers: Variable, but usually less than 10% Toxic: 20-30% COHB Lethal: Greater than 60% COHB Methemoglobin, Arterial 0.0 <=1.5 % [facility] [...] [facility] FIO2 Art 95 % [facility] Flow Art 1.1 LPM [facility] PF Ratio Art 298 [facility] Temp Art 35.6 Celsius [facility] Blood specimen (specimen) 09/21/2016 8:18 AM EST 09/21/2016 8:18 AM EST Alirio Esparza MD POINT OF CARE TEST ORDERABLES Performing Organization Address [facility] Co de Phone Number [facility] [place] [address] * Prepare RBC (09/21/2016 7:05 AM EST) [facility] Dispensed? Yes [facility] Blood specimen (specimen) 09/21/2016 7:05 AM EST 09/21/2016 7:02 AM EST Alirio Esparza MD BLOOD BANK PRODUCT ORDERABLES Performing Organization Address [facility] Co de Phone Number [facility] [place] [phone] * POCT Glucose (09/21/2016 6:42 AM EST) [facility] Glucose, POC 104 65 - 199 mg/dL [facility] Comment: Supplemental ranges: <140 mg/dL before meals <180 mg/dL all other times of the day Blood specimen (specimen) 09/21/2016 6:42 AM EST 09/21/2016 6:42 AM EST Alirio Esparza MD POINT OF CARE TEST ORDERABLES Performing Organization Address City/State/[facility] Co de Phone Number [facility] [place] [address] documented in this encounter Visit Diagnoses Diagnosis [...] dose on Wed09/21/16 at 1230, Until Discontinued, [place] teeth, Routine Given 09/25/2016 9:40 AM EST [...] if phenyleprine and/or vasopressin ineffective.Call pager # [phone] if initiated., Routine Rate/Dose Change 09/21/2016 2:27 [...] 2.0 L/min/M2. Maximum volume 2 L. Call supervisor brew house for additional fluid orders: pager #[phone]. Rate/Dose Verify 09/22/2016 10:00 AM EST 10 mL/hr 10 mL/hr Rate/Dose Change 09/22/2016 8:12 AM EST 10 mL/hr 10 mL/h r Rate/Dose Verify 09/21/2016 2:00 PM EST 100 mL/hr 100 mL/ hr sodium chloride 0.9% infusion 10-30 mL/hr, Intravenous, DAILY PRN, Starting on Wed09/21/16 at 1206, Until Wed09/22/16 at 1036, Side port TKO rate, per [facility] nursing protocol. Rate/Dose Verify 09/21/2016 5:00 PM [...] at 0600)1600 (Due - Provider: Kendall Martínez [facility]) aspirin chewable tablet 81 mg(Linked Group [...] dose on Wed09/21/16 at 1230, Until Discontinued, [place] teeth, Routine 0900 (Not Given - Provider: [...] Routine documented in this encounter Care Teams Chronic Manager Relationship Specialty Start Date End Date Deborah Quiroga, GROUND MIXER PCP - General Family Medicine 03/24/16 02/04/23 documented as of this encounter
--- OUTSIDE RECORDS SUMMARY | 2024-03-14 14:10 | XMS_ITS | Encounter Summary ---
Author Organization [facility] Address [facility] [place] [address] Care Team Providers Care Training Systems Officer Name Role Phone Deborah Quiroga APRN Primary Care Provider [phone] Encounter Details Date Type Department Care Team (Late st Contact Info) Description 02/06/2020 Orders Only [place] [address] Markel Borjas MD [facility] [address] [place] [address] Neutropenia, unspecified type Social History Tobacco Use [...] 4:15 PM EDT Office Visit Dermatology at [place] [address] [place] [phone] Marek Bonilla MD [address] [place] [address] documented as of this encounter Visit Diagnoses Diagnosis Neutropenia, unspecified type documented in this encounter Care Teams Training Systems Officer Relationship Specialty Start Date End Date Deborah Quiroga APRN PCP - General Family Medicine 03/24/16 02/04/23 documented as of this encounter
--- OUTSIDE RECORDS SUMMARY | 2024-03-14 14:10 | XMS_ITS | Encounter Summary ---
[place] [address] Care Team Providers Care Biophysics Professor Name Role Phone Deborah Quiroga ANURAG Primary Care Provider [phone] Encounter Details Date Type Department Care Team (Late st Contact Info) Description 06/18/2017 External Results Hematology [place] [address] Alexandrea Greenwood RN Neutropenia, unspecified type Social [...] 4:15 PM EDT Office Visit Dermatology at [place] [address] [place] [phone] Marek Bonilla MD [address], [place] [address] documented as of this encounter Procedures Procedure Name Priority Date/Time Associated Diagnosis Comments CBC (WITH DIFF) Routine 06/11/2017 1:19 PM EST Neutropenia, unspecified type COMPREHENSIVE METABOLIC PANEL Routine 06/11/2017 1:19 PM EST Neutropenia, unspecified type documented in this encounter Results * Comprehensive metabolic panel (non-fasting) (06/11/2017 1:19 PM EST) Blood Urea Nitrogen 13 7 - 18 [...] Borjas MD CHEMISTRY ORDERABL ES EXTERNAL LAB * (ABNORMAL) CBC (with Diff) (06/11/2017 1:19 PM EST) White Blood Cell 2.28(EXTER NAL/ABN) 4.4 - [...] type documented in this encounter Care Teams Biophysics Professor Relationship Specialty Start Date End Date Deborah Quiroga APRN PCP - General Family Medicine 03/24/16 02/04/23 documented as of this encounter
--- OUTSIDE RECORDS SUMMARY | 2024-03-14 14:10 | XMS_ITS | Encounter Summary ---
[place] [address] Care Team Providers Care Picking Crew Supervisor Name Role Phone Ashley Quirogan Cornelius ANURAG Primary Care Provider [phone] Reason for Visit * Reason Onset Date Comments Medical Care Coordination 07/27/2017 Encounter Details Date Type Department Care Team (Late st Contact Info) Description 07/27/2017 Telephone Hematology [place] [phone] Alexandrea Greenwood RN Medical Care Coordination Social [...] 07/27/2017 12:25 PM EST Message received from system support analyst: Injection/Infusion Referral Call placed to [facility] @ [phone] Spoke w/ [facility] [facility]URANCE CONSULTANT Services to be provided for pt are: CBC/CMP DONE Q6 MONTHS X2 STARTING NOVEMBER 2017 TECH confirmed they would provide services to pt - I CALLED PT, LM. Pt orders faxed to [phone] documented in this encounter Plan of Treatment Upcoming Encounters Date Type Department Care Team (Late st Contact Info) Description 03/01/2025 4:15 PM EDT Office Visit Dermatology at [place] [address] [place] [phone] Marek Bonilla MD [address], [place] [address] documented as of this encounter Visit Diagnoses Not on filedocumented in this encounter Care Teams Picking Crew Supervisor Relationship Specialty Start Date End Date Deborah Quiroga APRN PCP - General Family Medicine 03/24/16 02/04/23 documented as of this encounter
--- OUTSIDE RECORDS SUMMARY | 2024-03-14 14:10 | XMS_ITS | Encounter Summary ---
Author Organization [facility] Address [facility] [place] [address] Care Team Providers Care It Application Administrator Name Role Phone Junaid Deborah Shields APRN Primary Care Provider [phone] Reason for Visit * Reason Comments Schedule Office Case Pain right leg Encounter Details Date Type Department Care Team (Late st Contact Info) Description 12/11/2016 9:00 AM EDT Office Visit Hematology [place] [address] Markel Borjas MD [facility] [address] [address] [facility] [address] [place] [address] Neutropenia, unspecified type Social History Tobacco Use [...] 12/11/2016 9:00 AM EDT Hematology Outpatient Clinic [facility] Hematology Outpatient Consult Note CC: [...] TOUCH PREP, CLOT SECTION, CORE ??BIOPSY); [OSR# [id number], COLLECTED 06/23/2016, 19 SLIDES]: ?1. ??Normocellular marrow [...] a clonal lymphoproliferative or myeloproliferative disorder (OSR# [id number]) Chromosome analysis on the marrow aspirate revealed [...] intact. Extremities: No edema. Labs: Hgb= 13 Yiqk=971 ANC= 0.5 Imaging As above - reviewed [...] 4:15 PM EDT Office Visit Dermatology at [place] [address] [place] [phone] Marek Bonilla MD [address] [facility] [place] [address] documented as of this encounter Results * (ABNORMAL) CBC (with Diff) (06/11/2017 1:19 PM EST) Pathologist [facility] White Blood Cell 2.28(EXTER NAL/ABN) 4.4 - [...] type documented in this encounter Care Teams It Application Administrator Relationship Specialty Start Date End Date Deborah Quiroga, CUSTOMER ADVISOR SPECIALIST PCP - General Family Medicine 03/24/16 02/04/23 documented as of this encounter
--- OUTSIDE RECORDS SUMMARY | 2024-03-14 14:10 | XMS_ITS | Encounter Summary ---
Author Organization [facility] Address [facility] [place] [address] Care Team Providers Care Manager Of Network Name Role Phone uJnaid Deborah Shields APRN Primary Care Provider [phone] Encounter Details Date Type Department Care Team (Latest Contact Info) Description 10/14/2016 - 10/14/2016 11:59 PM EDT Hospital Encounter [place] [address] Alirio Esparza MD [facility] [address] [place] [address] Pain Discharge Disposition: Home Social History Tobacco [...] PM EDT Office Visit Dermatology at [place] [address] [place] [address] Marek Bonilla MD [address] [facility] [place] [address] documented as of this encounter Procedures Procedure [...] Esparza MD IMG FILM LIBRARY OR DERABLES [place], [place] documented in this encounter Visit Diagnoses Diagnosis Pain Generalized pain documented in this encounter Care Teams Manager Of Network Relationship Specialty Start Date End Date Deborah Quiroga, SUPERVISOR TUNNEL HEADING PCP - General Family Medicine 03/24/16 02/04/23 documented as of this encounter
--- OUTSIDE RECORDS SUMMARY | 2024-03-14 14:10 | XMS_ITS | Encounter Summary ---
Author Organization [facility] [place] [address] Care Team Providers Care Voice Professor Name Role Phone Deborah Quiroga ANURAG Primary Care Provider [phone] Encounter Details Date Type Department Care Team (Late st Contact Info) Description 12/04/2016 External Results Hematology [place] [address] Teresa Dodson, RN Social History Tobacco Use Types Packs/Day [...] 4:15 PM EDT Office Visit Dermatology at [place] [address] [place] [phone] Marek Bonilla MD [address] [place] [address] documented as of this encounter Procedures Procedure Name Priority Date/Time Associated Diagnosis Comments CBC (WITH DIFF) Routine 12/03/2016 11:35 AM EDT COMPREHENSIVE METABOLIC PANEL Routine 12/03/2016 11:35 AM EDT documented in this encounter Results * (ABNORMAL) Comprehensive metabolic panel (non-fasting) (12/03/2016 11:35 AM EDT) Glucose 85(Locomotive Repairer Diesel al Lab) Blood Urea Nitrogen 11(Locomotive Repairer Diesel al Lab) Creatinine 0.93(Exte rnal Lab) Sodium 140(Exter nal Lab) Potassium 4.2(Exter nal Lab) Chloride 104(Exter nal Lab) Calcium 10.0(Exte rnal Lab) Protein, Total 8.1(Exter nal Lab) Albumin 3.5(Exter nal Lab) Bilirubin, Total 0.25(Exte rnal Lab) Alkaline Phosphatase 96(Locomotive Repairer Diesel al Lab) Aspartate Aminotransferase 18(Locomotive Repairer Diesel al Lab) Alanine Aminotransferase 21(Locomotive Repairer Diesel al Lab) Blood specimen (specimen) 12/03/2016 11:35 AM EDT Historical Provider CHEMISTRY ORDERAB LES * (ABNORMAL) CBC (with Diff) (12/03/2016 11:35 AM EDT) White Blood Cell 1.61(EXTER NAL/ABN) 4.4 - 10.8 Hemoglobin 13.0(Exter nal Lab) Hematocrit 39.8(Exter nal Lab) Platelet 248(Locomotive Repairer Diesel al Lab) ANC 0.5(ACQUISITION LEAD AL/ABN) Blood specimen (specimen) 12/03/2016 11:35 AM EDT Historical Provider HEMATOLOGY ORDERA BLES documented in this encounter Visit Diagnoses Not on filedocumented in this encounter Care Teams Voice Professor Relationship Specialty Start Date End Date Deborah Quiroga APRN PCP - General Family Medicine 03/24/16 02/04/23 documented as of this encounter
--- OUTSIDE RECORDS SUMMARY | 2024-03-14 14:10 | XMS_ITS | Encounter Summary ---
Author Organization [facility] Address [facility] [place] [address] Care Team Providers Care Cloth Spreader Name Role Phone Ashley Quirogazac Shields APRN Primary Care Provider [phone] Encounter Details Date Type Department Care Team (Late st Contact Info) Description 10/20/2016 11:20 AM EDT Office Visit [place] [phone] Alirio Esparza MD [facility] [address] CARDIOTHORACIC [place] [address] S/P AVR Social History Tobacco Use Types [...] all of her postoperative tests done at [facility]. Her echo shows a well-seated valve. Her EF, for some reason, was read as in the 45% to 50% range. She had a normal EF to start. I think that will need to be repeated at [facility]. She has no perivalve leak. Her mean [...] should continue to see Dr. Burrell, her pediatric physician assistant at [facility]. cc: Dr. Burrell documented in this encounter Plan of Treatment Upcoming Encounters Date Type Department Care Team (Late st Contact Info) Description 03/01/2025 4:15 PM EDT Office Visit Dermatology at [place] [address] [facility] [place] [phone] Marek Bonilla MD [address] [facility] [place] [address] documented as of this encounter Visit Diagnoses Diagnosis S/P AVR Heart valve replaced by other means documented in this encounter Care Teams Cloth Spreader Relationship Specialty Start Date End Date Deborah Quiroga APRN PCP - General Family Medicine 03/24/16 02/04/23 documented as of this encounter
--- OUTSIDE RECORDS SUMMARY | 2024-03-14 14:10 | XMS_ITS | Encounter Summary ---
Author Organization [facility] [place] [address] Care Team Providers Care Mail Censor Name Role Phone Ashley Quirogazac Shields APRN Primary Care Provider [phone] Reason for Visit * Auth/Cert Specialty Diagnoses / Procedures Referred By Crispin t Referred To Contact Diagnoses Aortic stenosis Procedures PRO REPLACE AORT VALV, PROSTH VALV @REPLACE AORTIC VALVE, OPEN, W\CPB, W\PROSTHETIC VALVE (WRVU 41.32) Referral ID Status Reason Start Date Expiration Date Visits Re quested Visits Authorized [id number] 1 1 Encounter Details Date Type Department Care Team (Late st Contact Info) Description 09/21/2016 7:30 AM EST - 09/21/2016 12:04 PM EST [place] [address] [facility] [place] [address] @REPLACE AORTIC VALVE, OPEN, W\CPB, W\PROSTHETIC VALVE [...] in 1-2 weeks. Patient to follow-up with Bow Repairer Custom, Dr. Antelmo Burrell, in two weeks. Patient to follow-up with Cardiac Surgery, Dr. Alirio Esparza, to be scheduled for before 10/19/2016, with CXR, EKG, and Echo. Inpatient Provider Contact Information: [facility] Section of Cardiac Surgery [facility] [address] FAX [phone] Discharge Diagnoses (Hospital Problems) Primary Diagnoses: Secondary [...] @REPLACE AORTIC VALVE, OPEN, W\CPB, W\PROSTHETIC VALVE ([facility]32) performed by Alirio Esparza [...] Hospital Course: Purnima Thacker was admitted to [facility] on 09/21/2016 via the Same Day [...] Alirio Esparza and/or the Cardiac Surgery Physician Process Eng Team may be reached at . Antibiotic prophylaxis: You will need to take antibiotics prior to many invasive tests and treatments, such as dental cleaning, which should be done every 6 months. Your primary care physician or your dentist can prescribe this medication. Please refer to the card with the [place] [employer] Guidelines for more information. You have been provided with 3 copies of this card. Keep one for your self. Give one to your primary care physician and one to your dentist. Please refer to the [place] [employer] Guidelines for more information. Good [...] Dr. Alirio Jones. You may use a Waterproof Track or treadmill but avoid any pulling [...] should resume a low fat, low cholesterol, [place] [employer] Diet. Driving: No driving until [...] the outpatient Phase 2 Cardiac Rehabilitation at [facility]. The patient agrees to a referral to this program. The referral will be sent at discharge and the patient should be contacted by the program within 1- 2 weeks from discharge. Future Appointments and Orders Future Appointments Provider Department Dept Phone 11/20/2016 11:30 AM Markel Borjas MD [facility] [phone] Future Orders Complete By Expires Echocardiogram Transthoracic([facility]) [RHR034 Custom] 10/18/2016 (Approximate) 09/18/2017 Process Instructions: If the Echocardiogram is to be PERFORMED in a location other than [place]--STOP and order [id number], Echocardiogram South/External. Scheduling Instructions: Questions: Is a Bubble Study requested?: No Does the patient have Congenital Heart Disease?: No Does patient require sedation?: None GA rationale: Should this service be billed to the research sponsor?: EKG 12 Lead [EKG1 Custom] 10/18/2016 (Approximate) 09/25/2017 Process Instructions: Scheduling Instructions: Questions: Which location will this be performed?: [place] Is a rhythm strip needed?: No If EKG Reason is Pre-op Evaluation, indicate diagnosis for surgery.: Should this service be billed to the research sponsor?: XR Chest PA & Lateral (Generic) [[id number] Custom] 10/18/2016 (Approximate) 09/25/2017 Process Instructions: Scheduling Instructions: Questions: Where will study be performed?: [facility]- Radiology Portable exam?: No Reason for exam and clinical history: s/p AVReplacement, patch annuloplasty 1 month f/u Other pertinent information: Stat read required?: Date of injury if applicable: Requested Time: Referral to Cardiac Rehab [[id number] Custom] As directed Process Instructions: If no progress note charted, please enter Clinical details in comments. Scheduling Instructions: Questions: My question or request is: s/p AVR. Cardiac rehab at [facility] Referral to Home Health - at DISCHARGE [EGV6169 CPT(R)] As directed Process Instructions: Scheduling Instructions: Comments: DOCUMENTATION FOR VNA SERVICES (INCLUDING THOSE PATIENTS WITH MEDICARE COVERAGE REQUIRING HOME VNA SERVICES AND/OR HOSPICE SERVICES) PATIENT'S LOCATION: Purnima M Kirstie [address] [place] [phone] (home) No relevant phone numbers on file. Leather Grader's Name: self In discussion with the attending physician, it is certified that this patient is under their care and that they, or a Nurse Practitioner, or Physician Process Eng who is working directly with them, hada [...] for services as follows: HOME HEALTH AGENCY: [facility] PHONE: [phone] FAX: [phone] RN orders: Cardiopulmonary assessment, incisional assessment, assess [...] issues please call the Cardiac SurgeryOffice at [phone] FOR MEDICARE ONLY: In discussion with the [...] noted. Questions: Agency name and contact information: [facility] Patient location post discharge: home What services are requested: Registered Nurse Physical Therapy Occupational Therapy Start date: Responsible MD post discharge contact info: Arrangements for VNA/home care: As above. VN RN OR PCP TO PLEASE REMOVE CHEST TUBE SUTURES ON OR AFTER 09/30/16 Signed: Crispin Aranda PA-C 09/25/2016 [facility] Section of Cardiac Surgery [facility] [address] FAX [phone] Date: 09/25/2016 CC: ANURAG Alford Caryn E, APRN [address] [place] [address] documented in this encounter Discharge Instructions * [...] Alirio Esparza and/or the Cardiac Surgery Physician Process Eng Team may be reached at . Antibiotic prophylaxis: You will need to take antibiotics prior to many invasive tests and treatments, such as dental cleaning, which should be done every 6 months. Your primary care physician or your dentist can prescribe this medication. Please refer to the card with the [place] [employer] Guidelines for more information. You have been provided with 3 copies of this card. Keep one for your self. Give one to your primary care physician and one to your dentist. Please refer to the [place] [employer] Guidelines for more information. Good [...] Dr. Alirio Jones. You may use a Waterproof Track or treadmill but avoid any pulling [...] should resume a low fat, low cholesterol, [place] [employer] Diet. Driving: No driving until [...] the outpatient Phase 2 Cardiac Rehabilitation at [facility]. The patient agrees [...] PM EST Cardiac Surgery Progress Note: ID: [id number] S/p AVR, patch aortoplasty POD#2. PMH of [...] Gas) No results found for: PHART, PO2ART, ACS3MZV Assessment/Plan: TPW out this am. (+) BM. [...] Signed: Crispin Aranda PA-C 09/24/2016 Team pager: [phone]; [phone] after 5pm [facility] Section of Cardiac Surgery * Leonor Henson S, OFFICE SERVICES SPECIALIST - 09/23/2016 10:48 AM EST Cardiac Surgery Progress Note: ID: [id number] s/p AVR, patch aortoplasty POD#2. PMH of [...] Gas) No results found for: PHART, PO2ART, GIS7YXZ Assessment/Plan: s/p AVR, patch aortoplasty POD#2. PMH of Neutropenia, HLD, HTN, Depression, obesity, . Transferred from [facility] yesterday and doing well. Pathway. Will [...] Surgeon on rounds. Signed: Leonor Henson APRN [facility] Section of Cardiac Surgery Date: 09/23/2016 * Nico Palacios PA - 09/22/2016 9:56 AM EST Cardiac Surgery Progress Note: ID: [id number] s/p AVR, patch aortoplasty POD#1. PMH of [...] NT, ND, soft. Ext: Moves all extremities. [place], well perfused. Incisions: C/D/I Tubes/Lines/Drains: PIV, leanna, [...] Attending Surgeon on rounds. Signed: EKATERINA KIM [facility] Section of Cardiac Surgery Date: 09/22/2016 * Hortecnia Cody MD - 09/21/2016 9:10 PM EST [...] Outcome (s) achieved Date Met: 09/25/16 09/25/16 0529 Coping/Psychosocial Plan Of Care Reviewed With patient [...] with outpatient services Lalitha Cohen SPTA Pager: [phone] Inpatient Physical Therapy Patient status, treatment interventions, and goals discussed with student. I am in agreement with all details and associated flowsheet rows as documented and was present for all aspects of the patient treatment session. Nery Jaramillo PTA Pager [phone] Problem: Acute Rehab Services Goal & Intervention Plan Goal: Bed Mobility Goal Stand Alone Therapy Goal Outcome: Ongoing (Interventions Implemented as Appropriate) 09/22/16 1611 09/25/16 0947 Bed Mobility Goal Bed Mobility Goal, Time to Achieve 4 days -- Bed Mobility Goal, Activity Type scoot/bridge;supine to sit/sit to supine -- Bed Mobility Goal, Logan Level independent -- Bed Mobility Goal, Additional [...] Achieve 4 days -- Gait Training Goal, Logan Level independent -- Gait Training Goal, Distance [...] * Plan of Care - Nery Jaramillo CUSTOMER SUPPORT TECHNICIAN - 09/23/2016 2:23 PM EST Problem: Patient [...] home with home health Lalitha Radha Cohen [facility] [place] Pager: [phone] Inpatient Physical Therapy Patient status, treatment interventions, and goals discussed with student. I am in agreement with all details and associated flowsheet rows as documented and was present for all aspects of the patient treatment session. Nery Jaramillo PTA Pager [phone] Problem: Acute Rehab Services Goal & Intervention Plan Goal: Bed Mobility Goal Stand Alone Therapy Goal Outcome: Ongoing (Interventions Implemented as Appropriate) 09/22/16161009/23/161411 Bed Mobility Goal Bed Mobility Goal, Time to Achieve 4 days -- Bed Mobility Goal, Activity Type scoot/bridge;supine to sit/sit to supine -- Bed Mobility Goal, Logan Level independent -- Bed Mobility Goal, Additional [...] Achieve 4 days -- Gait Training Goal, Logan Level independent -- Gait Training Goal, Distance [...] days -- Transfer Training Goal, Activity Type llk-tl-fznwj/artid-uj-zmt;jzo-my-gqcqn/fgahn-lp-qxx -- Transfer Train Goal, Logan Level independent -- Transfer Training Goal, Additional Goal abides sternal precautions -- Transfer Training Goal, Outcome -- goal met * Consult Note - Jana Crenshaw RN - 09/23/2016 9:41 AM EST [facility] Purnima Thacker was seen today regarding participation in the outpatient Phase 2 Cardiac Rehabilitation at [facility]. The patient agrees [...] Another Service: (cardiac rehab) NICOLE HERNANDEZ, PT Pager:[phone] Inpatient Physical Therapy Problem: Acute Rehab Services Goal & Intervention Plan Goal: Bed Mobility Goal Stand Alone Therapy Goal Outcome: Ongoing (Interventions Implemented as Appropriate) 09/22/16 1611 Bed Mobility Goal Bed Mobility Goal, Time to Achieve 4 days Bed Mobility Goal, Activity Type scoot/bridge;supine to sit/sit to supine Bed Mobility Goal, Logan Level independent Bed Mobility Goal, Additional Goal able to abide sternal precautions during transfers Goal: Gait Training Goal Stand Alone Therapy Goal Outcome: Ongoing (Interventions Implemented as Appropriate) 09/22/16 1611 Gait Training Goal Gait Training Goal, Date Established 09/22/16 Gait Training Goal, Time to Achieve 4 days Gait Training Goal, Logan Level independent Gait Training Goal, Distance to Achieve ascend and descends 2 steps independently Goal: Goal Transfer Training Stand Alone Therapy Goal Outcome: Ongoing (Interventions Implemented as Appropriate) 09/22/16 1611 Goal Transfer Training Transfer Training Goal, Time to Achieve 4 days Transfer Training Goal, Activity Type dtb-og-ufsvw/nyhfp-pe-kke;nac-uj-rijjz/gkoaz-gr-cou Transfer Train Goal, Logan Level independent Transfer Training Goal, Additional Goal [...] of completing AD's at home, chooses her lohffp-zk-yfm, Martha Thacker (home) for her DPOAH, 2nd choice in friend, Nitesh Leroy, [place], [place] Current Coping/Education/Information Needs: patient sitting up [...] close by, Rashad & Raymond, and her kfdxgf-lm-gld Martha Thacker who she has chosen to be her DPOAH. Also has a friend Nitesh Leroy who lives in [place], [place], also her DPOAH choice. Behavioral Health History: none on file in [facility] Substance Use/Abuse: none on file in [facility] Other Pertinent/Service Specific Information: none Health/Prescription Coverage: Primary Insurance: [employer] Secondary Insurance: none Prescription Coverage: yes, per patient no issues Preferred Pharmacy: ?? Other: none Primary Care Provider: Deborah Quiroga, OFFICE SERVICES SPECIALIST [phone] Patient/Caregiver Goals of Treatment: per medical team recommendations at discharge for CT surgery Potential Needs for Transition of Care: Rehab/SNF: TBD Home Health: TBD DME: no Dialysis: no Community Resources: non3 Transportation: ride home with a friend Other: none Anticipated Barriers to Discharge/Special Considerations: none anticipated at this time Plan: patient will need VNA services at discharge. The patient/admitting representative has been provided a list of Home Health Agencies/DME vendors which servetheir preferred geographic area. A letter describing our affiliations was reviewed with them and they were educated about their right to choose where referrals are placed. Patient requests referral to: [facility]. PHONE: [phone] FAX: [phone] Expected date of discharge: Fri/Sat? CM called VNA to confirm referral, talked with VALDO Bunn/intake who stated she was familiar w/patient & would monitor her progress through curaspan. Referral routed to the [employer] for matching with agency/vendor and to provide any required information. A member of the Care Management team will continue to monitor progress, follow for continuity of care and assist with transition of care planning. Amanda Moreno RN Pager: [phone] * Op Note - Alirio Esparza MD - 09/21/2016 12:53 PM EST 09/23/2016 Purnima Thacker 1955 [id number] Preoperative Diagnosis: Symptomatic aortic stenosis Postoperative Diagnosis: Symptomatic aortic stenosis Procedure: Aortic valve replacement: Bovine Pericardial 25 mm Surgeon: Alirio Esparza M.D. Process Eng: Philip BALL Anesthesia: General endotracheal anesthesia Drains: [...] applied. The patient was transported to the [facility] on levo. All counts were correct. [...] Operative Note Patient Name: Purnima Thacker : [id number] MR#: [id number] Case Date: 09/21/2016 Surgeon: Surgeon(s) and Role: * Alirio Esparza MD - Primary * Nico Palacios PA - Physician Process Eng Preoperative diagnosis: Postoperative diagnosis: Procedure(s) (LRB): @REPLACE [...] Office Visit Dermatology at [place] [address] [place] [address] Marek Bonilla MD [address], [place] [address] Scheduled Orders Name Type Priority Associated Diagnoses [...] IMPLANTABLE DEVICES SCAN 09/26/2016 12:00 AM EST FIRE OFFICER SCAN 09/26/2016 12:00 AM EST POTASSIUM Routine [...] Routine 09/22/2016 4:00 AM EST CARDIAC ENZYMES ([facility]) Routine 09/22/2016 4:00 AM EST CREATININE Routine [...] SCAN EXT O RDR/RSLT * SCAN DOC: FIRE OFFICER (09/26/2016 12:00 AM EST) Anatomical Region Laterality [...] CHEMISTRY ORDERABLE S [facility] [place] [address] * (ABNORMAL) Differential, Automated (09/24/2016 9:56 AM EST) Neutrophil % 76.8 % [facility] Neutrophil Absolute 7.79(H) 1.70 - 6.10 x10(3)/ L [facility] Lymph % 11.1 % [facility] Lymphocytes Abs 1.1 0.9 - 3.2 x10(3)/[facility] LAB[facility] Monocyte % 8.5 % [facility] Monocyte Abs 0.9 0.3 - 0.9 x10(3)/ L [facility] Eos % 0.5 % [facility] Eosinophils Abs 0.0 0.0 - 0.4 x10(3)/[facility] Basophil % 0.2 % [facility] Baso Absolute 0.0 0.0 - 0.1 x10(3)/ L [facility] Immature Gran [...] Absolute 0.29(H) 0.00 - 0.04 x10(3)/mc L [facility] Blood specimen (specimen) 09/24/2016 9:56 AM EST 09/24/2016 10:04 AM EST Narrative Resulting Agency Comment Spec In Lab Alirio Esparza MD HEMATOLOGY ORDERABL ES [facility] [place] [address] * (ABNORMAL) Hemogram (09/24/2016 9:56 AM EST) White Blood Cell 10.1(H) 4.0 - 9.5 x10(3)/mc L [facility] Red Blood Cell 2.87(L) 4.00 - 5.21 x10(6)/mc L [facility] Hemoglobin 9.4(L) 11.7 - 15.5 gm/dL [facility] Hematocrit 28.3(L) 35.7 - 45.8 % [facility] Mean Cell Volume 98.6(H) 82.6 - 94.4 fL [facility] Mean Cell Hemoglobin 32.8(H) 27.1 - 32.0 pg [facility] Mean Cell Hemoglobin Concentration 33.2 31.7 - 35.0 gm/dL [facility] Platelet 141(L) 145 - 357 x10(3)/mc L [facility] RDW Standard Deviation 45.0 37.0 - 46.0 [facility] RDW coefficient of variation 12.6 11.5 - 14.1 % [facility] Mean Platelet Volume 9.4 7.6 - 12.9 fL [facility] NRBC% auto 1.1 % [facility] NRBC Absolute 0.110(H) 0.000 - 0.000 x10(3)/mc L [facility] Blood specimen (specimen) 09/24/2016 9:56 AM EST 09/24/2016 10:04 AM EST Narrative Resulting Agency Comment Spec In Lab Alirio Esparza MD HEMATOLOGY ORDERABL ES [facility] [place] [address] * (ABNORMAL) Basic Metabolic Panel (non-fasting) (09/24/2016 9:56 AM EST) Glucose 111 65 - 199 mg/dL [facility] Comment:Diabetes: >=200 mg/d L plus symptoms Blood Urea Nitrogen 23(H) 8 - 18 mg/dL [facility] Comment:result rechecked-ART Creatinine 0.89 0.70 - 1.20 mg/dL [facility] Comment: Please note that the pediatric reference intervals supplied above were not validated at [facility]. Results from pediatric patients should be interpreted [...] - 107 mmol/L [facility] Carbon Dioxide 26 22 - 31 mmol/L [facility] Anion Gap 14 5 - 15 mmol/L [facility] Calcium 9.1 8.5 - 10.5 mg/dL [facility] Est Glomerular Filtration Rate >60 >=60 [facility] Comment: This estimated GFR (eGFR) [...] the following links into your internet browser. [email or web address] Blood specimen (specimen) 09/24/2016 9:56 AM EST 09/24/2016 10:04 AM EST Narrative Resulting Agency Comment Spec In Lab Alirio Esparza MD CHEMISTRY ORDERABLE S [facility] [place] [address] * XR Chest PA & Lateral (Generic) [...] MD CHEMISTRY ORDERABLE S Performing Organization Address [facility]/ZIP Co de Phone Number [facility] [place] [address] * POCT Glucose (09/22/2016 8:17 AM EST) Glucose, POC 131 65 - 199 mg/dL [facility] Comment: Supplemental ranges: <140 mg/dL before meals <180 mg/dL all other times of the day Blood specimen (specimen) 09/22/2016 8:17 AM EST 09/22/2016 8:17 AM EST Alirio Esparza MD POINT OF CARE TEST ORDERABLES Performing Organization Address [facility] Co de Phone Number [facility] [place] [address] * POCT Glucose (09/22/2016 4:01 AM EST) Glucose, POC 135 65 - 199 mg/dL [facility] Comment: Supplemental ranges: <140 mg/dL before meals <180 mg/dL all other times of the day Blood specimen (specimen) 09/22/2016 4:01 AM EST 09/22/2016 4:01 AM EST Alirio Esparza MD POINT OF CARE TEST ORDERABLES Performing Organization Address [facility] Co de Phone Number [facility] [place] [address] * Scan, Peripheral Blood (09/22/2016 4:00 AM EST) Pathologist [facility] Plat estimate Normal [facility] RBC Morphology Abnormal [facility] Macrocyte 1-5 /HPF [facility] Plat, Giant Less than 1 /HPF [facility] Blood specimen (specimen) 09/22/2016 4:00 AM EST 09/22/2016 4:34 AM EST Narrative Resulting Agency Comment Spec In Lab Alirio Esparza MD HEMATOLOGY ORDERABL ES Performing Organization Address [facility] Co de Phone Number [facility] [place] [address] * Electrolytes panel (09/22/2016 4:00 AM EST) [...] - 107 mmol/L [facility] Carbon Dioxide 24 22 - 31 mmol/L [facility] Anion Gap 14 5 - 15 mmol/L [facility] Blood specimen (specimen) Venous Draw / Unknown 09/22/2016 4:00 AM EST 09/22/2016 4:34 AM EST Narrative Resulting Agency Comment Spec In Lab Alirio Esparza MD CHEMISTRY ORDERABLE S Performing Organization Address [facility] Co de Phone Number [facility] [place] [address] * (ABNORMAL) Differential, Automated (09/22/2016 4:00 AM EST) Neutrophil % 70.9 % [facility] Neutrophil Absolute 5.33 1.70 - 6.10 x10(3)/mc L [facility] Lymph % 9.1 % [facility] Lymphocytes Abs 0.7(L) 0.9 - 3.2 x10(3)/mc L [facility] Monocyte % 18.0 % [facility] Monocyte Abs 1.4(H) 0.3 - 0.9 x10(3)/mc L [facility] Eos % 0.0 % [facility] Eosinophils Abs 0.0 0.0 - 0.4 x10(3)/[facility]OR[facility] Basophil % 0.1 % [facility] Baso Absolute 0.0 0.0 - 0.1 x10(3)/[facility] LAB[facility] Immature Gran % 1.90 % [facility] Comment: Immature granulocytes(IG's)percentage and absolute count will include metamyelocytes, myelocytes, and promyelocytes. Blood smears from CBCs yielding IG's will be scanned manually for concordance. If this scan disagrees with the automated IG or if promyelocytes are noted, a manual differential will be performed. Immature Gran Absolute 0.14(H) 0.00 - 0.04 x10(3)/[facility] Blood specimen (specimen) 09/22/2016 4:00 AM EST 09/22/2016 4:34 AM EST Narrative Resulting Agency Comment Spec In Lab Alirio Esparza MD HEMATOLOGY ORDERABL ES [facility] [place] [address] * (ABNORMAL) Hemogram (09/22/2016 4:00 AM EST) White Blood Cell 7.5 4.0 - 9.5 x10(3)/[facility] LABORAT[facility] Red Blood Cell 2.93(L) 4.00 - 5.21 x10(6)/ L [facility] Hemoglobin 9.2(L) 11.7 - 15.5 gm/dL [facility] Hematocrit 28.0(L) 35.7 - 45.8 % [facility] Mean Cell Volume 95.6(H) 82.6 - 94.4 fL [facility] Mean Cell Hemoglobin 31.4 27.1 - 32.0 pg [facility] Mean Cell Hemoglobin Concentration 32.9 31.7 - 35.0 gm/dL [facility] Platelet 161 145 - 357 x10(3)/mc L [facility] RDW Standard Deviation 44.0 37.0 - 46.0 fL [facility] RDW coefficient of variation 12.6 11.5 - 14.1 % [facility] Mean Platelet Volume 9.3 7.6 - 12.9 fL [facility] LABORATORY NRBC% auto 0.3 % [facility] NRBC Absolute 0.020(H) 0.000 - 0.000 x10(3)/mc L [facility] Blood specimen (specimen) 09/22/2016 4:00 AM EST 09/22/2016 4:34 AM EST Narrative Resulting Agency Comment Spec In Lab Alirio Esparza MD HEMATOLOGY ORDERABL ES Performing Organization Address City/State/[facility] Co de Phone Number [facility] [place] [phone] * (ABNORMAL) Cardiac Enzymes (09/22/2016 4:00 AM [...] consensus document of the Joint Society of Cardiology/[place] [employer] Committee for the redefinition of myocardial infarction. ??Journal of the [place] [employer] 2000; 36: 959-969] Creatine Kinase 338(H) 0 - 160 unit/L [facility] Blood specimen (specimen) 09/22/2016 4:00 AM EST 09/22/2016 4:34 AM EST Narrative Resulting Agency Comment Spec In Lab Alirio Esparza MD CHEMISTRY ORDERABLE S Performing Organization Address [facility] Co de Phone Number [facility] [place] [address] * (ABNORMAL) Glucose, fasting (09/22/2016 4:00 AM [...] of Diabetes Mellitus, Position Statement from the [place] [employer]. ??Diabetes Care, Volume 33, Supplement 1, Aug 2009 Blood specimen (specimen) 09/22/2016 4:00 AM EST 09/22/2016 4:34 AM EST Narrative Resulting Agency Comment Spec In Lab Alirio Esparza MD CHEMISTRY ORDERABLE S Performing Organization Address [facility] Co de Phone Number [facility] [place] [address] * (ABNORMAL) Creatinine (09/22/2016 4:00 AM EST) Creatinine 0.69(L) 0.70 - 1.20 mg/dL [facility] Comment: Please note that the pediatric reference intervals supplied above were not validated at [facility]. Results from pediatric patients should be interpreted in conjunction to the patient's age, height and muscle mass. Est Glomerular Filtration Rate >60 >=60 [facility] Comment: This estimated GFR (eGFR) [...] the following links into your internet browser. [email or web address] Blood specimen (specimen) 09/22/2016 4:00 AM EST 09/22/2016 4:34 AM EST Narrative Resulting Agency Comment Spec In Lab Alirio Esparza MD CHEMISTRY ORDERABLE S Performing Organization Address [facility] de Phone Number [facility] [place] [address] * BUN (09/22/2016 4:00 AM EST) Blood Urea Nitrogen 10 8 - 18 mg/dL [facility] Blood specimen (specimen) 09/22/2016 4:00 AM EST 09/22/2016 4:34 AM EST Narrative Resulting Agency Comment Spec In Lab Alirio Esparza MD CHEMISTRY ORDERABLE S Performing Organization Address [facility] Co de Phone Number [facility] [place] [address] * POCT Glucose (09/21/2016 9:59 PM EST) Glucose, POC 146 65 - 199 mg/dL [facility] Comment: Supplemental ranges: <140 mg/dL before meals <180 mg/dL all other times of the day Blood specimen (specimen) 09/21/2016 9:59 PM EST 09/21/2016 9:59 PM EST Alirio Esparza MD POINT OF CARE TEST ORDERABLES Performing Organization Address [facility] Co de Phone Number [facility] [place] [address] * POCT Glucose (09/21/2016 7:26 PM EST) Glucose, POC 152 65 - 199 mg/dL [facility] Comment: Supplemental ranges: <140 mg/dL before meals <180 mg/dL all other times of the day Blood specimen (specimen) 09/21/2016 7:26 PM EST 09/21/2016 7:26 PM EST Alirio Esparza MD POINT OF CARE TEST ORDERABLES Performing Organization Address [facility] Co de Phone Number [facility] [place] [address] * POCT Glucose (09/21/2016 6:00 PM EST) [facility] Signature Glucose, POC 146 65 - 199 mg/dL [facility] Comment: Supplemental ranges: <140 mg/dL before meals <180 mg/dL all other times of the day Blood specimen (specimen) 09/21/2016 6:00 PM EST 09/21/2016 6:00 PM EST Alirio Esparza MD POINT OF CARE TEST ORDERABLES Performing Organization Address City/[facility] Co de Phone Number [facility] [place] [address] * (ABNORMAL) BLOOD GAS 2 ARTERIAL (09/21/2016 4:42 PM EST) pH, Arterial 7.35(L) 7.35 - 7.45 [facility] PCO2, Arterial 48(H) 35 - 45 mmHg [facility] PO2, Arterial 108(H) 85 - 104 mmHg [facility] Bicarbonate, Arterial 26.0 20.0 - 26.0 mmol/L [facility] Base Excess, Arterial 0.5 -3.0 - 3.0 mmol/L [facility] Hgb Blood Gas 10.4(L) 11.7 - 15.5 gm/dL [facility] Oxyhemoglobin, Arterial 96.2 94.0 - 97.0 % [facility] Carboxyhemoglob in, Arterial 0.0 % [facility] Comment: Nonsmokers: 0.5-1.5% COHB Smokers: Variable, but usually less than 10% Toxic: 20-30% COHB Lethal: Greater than 60% COHB Methemoglobin, Arterial 0.7 <=1.5 % [facility] Na Whole Blood 139 135 [...] [facility] FIO2 Art 40 % [facility] PF Ratio Art 270 [facility] Blood specimen (specimen) 09/21/2016 4:42 PM EST 09/21/2016 4:42 PM EST Alirio Esparza MD POINT OF CARE TEST ORDERABLES [facility] [place] [address] * POCT Glucose (09/21/2016 4:07 PM EST) Glucose, POC 150 65 - 199 mg/dL [facility] Comment: Supplemental ranges: <140 mg/dL before meals <180 mg/dL all other times of the day Blood specimen (specimen) 09/21/2016 4:07 PM EST 09/21/2016 4:07 PM EST Alirio Esparza MD POINT OF CARE TEST ORDERABLES Performing Organization Address [facility] Co de Phone Number [facility] [place] [address] * (ABNORMAL) Hemoglobin (09/21/2016 4:05 PM EST) Hemoglobin 9.9(L) 11.7 - 15.5 gm/dL [facility] Blood specimen (specimen) 09/21/2016 4:05 PM EST 09/21/2016 4:20 PM EST Narrative Resulting Agency Comment Spec In Lab Alirio Esparza MD HEMATOLOGY ORDERABL ES Performing Organization Address [facility] Co de Phone Number [facility] [place] [address] * Potassium (09/21/2016 4:05 PM EST) Potassium [...] MD CHEMISTRY ORDERABLE S Performing Organization Address [facility] Co de Phone Number [facility] [place] [address] * POCT Glucose (09/21/2016 2:52 PM EST) Glucose, POC 117 65 - 199 mg/dL [facility] Comment: Supplemental ranges: <140 mg/dL before meals <180 mg/dL all other times of the day Blood specimen (specimen) 09/21/2016 2:52 PM EST 09/21/2016 2:52 PM EST Alirio Esparza MD POINT OF CARE TEST ORDERABLES Performing Organization Address [facility] Co de Phone Number [facility] [place] [address] * POCT Glucose (09/21/2016 1:51 PM EST) Glucose, POC 108 65 - 199 mg/dL [facility] Comment: Supplemental ranges: <140 mg/dL before meals <180 mg/dL all other times of the day Blood specimen (specimen) 09/21/2016 1:51 PM EST 09/21/2016 1:51 PM EST Alirio Esparza MD POINT OF CARE TEST ORDERABLES Performing Organization Address [facility] Co de Phone Number [facility] [place] [address] * POCT Glucose (09/21/2016 12:54 PM EST) Glucose, POC 128 65 - 199 mg/dL [facility] Comment: Supplemental ranges: <140 mg/dL before meals <180 mg/dL all other times of the day Blood specimen (specimen) 09/21/2016 12:54 PM EST 09/21/2016 12:54 PM EST Alirio Esparza MD POINT OF CARE TEST ORDERABLES Performing Organization Address [facility] Co de Phone Number [facility] [place] [address] * EKG 12 Lead (09/21/2016 12:26 PM EST) Ventricular rate 87 BPM MUSE SYSTEM Atrial Rate 87 BPM MUSE SYSTEM P-R Interval 256 ms MUSE SYSTEM QRS Duration 90 ms MUSE SYSTEM Q-T Interval 406 ms MUSE SYSTEM QTC Calculated (Bezet) 488 ms MUSE SYSTEM Calculated P [place] 24 degrees MUSE SYSTEM Calculated R [place] 21 degrees MUSE SYSTEM Calculated T [place] -5 degrees MUSE SYSTEM INTERPRETATION Sinus rhythm [...] course of the esophagus and below the [id number]. There is a right IJ PA catheter [...] the course of theesophagus and below the [id number]. There is a right IJ PA catheter [...] EST) pH, Arterial 7.41 7.35 - 7.45 [facility] PCO2, Arterial 42 35 - 45 mmHg [facility] PO2, Arterial 356(H) 85 - 104 mmHg [facility] Bicarbonate, Arterial 26.2(H) 20.0 - 26.0 mmol/L [facility] Base Excess, Arterial 1.6 -3.0 - 3.0 mmol/L [facility] Hgb Blood Gas 10.7(L) 11.7 - 15.5 gm/dL [facility] Oxyhemoglobin, Arterial 98.1(H) 94.0 - 97.0 % [facility] Carboxyhemoglob in, Arterial 0.3 % [facility] Comment: Nonsmokers: 0.5-1.5% COHB Smokers: Variable, but usually less than 10% Toxic: 20-30% COHB Lethal: Greater than 60% COHB Methemoglobin, Arterial 0.8 <=1.5 % [facility] Na Whole Blood 140 135 [...] [facility] FIO2 Art 100 % [facility] PF Ratio Art 356 [facility] Blood specimen (specimen) 09/21/2016 12:20 PM EST 09/21/2016 12:20 PM EST Alirio Esparza MD POINT OF CARE TEST ORDERABLES [facility] [place] [address] * (ABNORMAL) BLOOD GAS 2 ARTERIAL (09/21/2016 10:54 AM EST) pH, Arterial 7.43 7.35 - 7.45 [facility] PCO2, Arterial 40 35 - 45 mmHg [facility] PO2, Arterial 297(H) 85 - 104 mmHg [facility] Bicarbonate, Arterial 26.0 20.0 - 26.0 mmol/L [facility] Base Excess, Arterial 1.6 -3.0 - 3.0 mmol/L [facility] Hgb Blood Gas 8.6(L) 11.7 - 15.5 gm/dL [facility] Oxyhemoglobin, Arterial 98.6(H) 94.0 - 97.0 % [facility] Carboxyhemoglob in, Arterial 0.5 % [facility] Comment: Nonsmokers: 0.5-1.5% COHB Smokers: Variable, but usually less than 10% Toxic: 20-30% COHB Lethal: Greater than 60% COHB Methemoglobin, Arterial 0.3 <=1.5 % [facility] Na Whole Blood 134(L) 135 [...] [facility] FIO2 Art 95 % [facility] Flow Art 0.7 LPM [facility] PF Ratio Art 313 [facility] Temp Art 36.7 Celsius [facility] Blood specimen (specimen) 09/21/2016 10:54 AM EST 09/21/2016 10:54 AM EST Alirio Esparza MD POINT OF CARE TEST ORDERABLES Performing Organization Address [facility] Co de Phone Number [facility] [place] [address] * Thrombin time (09/21/2016 10:50 AM EST) [...] MD HEMATOLOGY ORDERABLE S Performing Organization Address City/[facility] Co de Phone Number [facility] [place] [address] * Fibrinogen (09/21/2016 10:50 AM EST) Fibrinogen [...] HEMATOLOGY ORDERABLE S Performing Organization Address [facility] Co de Phone Number [facility] [place] [address] * APTT (09/21/2016 10:50 AM EST) Partial Thromboplastin Time 32 25 - 35 sec [facility] Comment: The recommended therapeutic range for full dose, unfractionated heparin at [facility] is 80 ? 114 seconds. The use of the anti-Xa (heparin) level rather than the PTT is recommended for monitoring anticoagulation intensity in critically ill patients receiving unfractionated heparin by continuous IV infusion. Blood specimen (specimen) 09/21/2016 10:50 AM EST 09/21/2016 10:56 AM EST Narrative Resulting Agency Comment Spec In Lab Luis Enrique Quarles MD HEMATOLOGY ORDERABLE S Performing Organization Address [facility] de Phone Number [facility] [place] [address] * (ABNORMAL) Prothrombin Time (09/21/2016 10:50 AM EST) Prothrombin Time 18.7(H) 12.0 - 15.0 sec [facility] [...] International Normalization Ratio 1.5(H) 0.9 - 1.1 [facility] Blood specimen (specimen) 09/21/2016 10:50 AM EST 09/21/2016 10:56 AM EST Narrative Resulting Agency Comment Spec In Lab Luis Enrique Quarles MD HEMATOLOGY ORDERABLE S [facility] [place] [address] * (ABNORMAL) Hemogram (09/21/2016 10:50 AM EST) White Blood Cell 14.7(H) 4.0 - 9.5 x10(3)/mc L [facility] Red Blood Cell 2.40(L) 4.00 - 5.21 x10(6)/mc L [facility] Hemoglobin 7.9(L) 11.7 - 15.5 gm/dL [facility] Hematocrit 23.2(L) 35.7 - 45.8 % [facility] Comment: This result has been called to MICHELLE GRIGSBY by ASHU MORENO on 09 21 2016 at 1102, and has been read back. Mean Cell Volume 96.7(H) 82.6 - 94.4 fL [facility] Mean Cell Hemoglobin 32.9(H) 27.1 - 32.0 pg [facility] Mean Cell Hemoglobin Concentration 34.1 31.7 - 35.0 gm/dL [facility] Platelet 117(L) 145 - 357 x10(3)/mc L [facility] RDW Standard Deviation 42.6 37.0 - 46.0 fL [facility] RDW coefficient of variation 12.1 11.5 - 14.1 % [facility] Mean Platelet Volume 9.2 7.6 - 12.9 fL [facility] NRBC% auto 0.1 % [facility] NRBC Absolute 0.020(H) 0.000 - 0.000 x10(3)/mc L [facility] Blood specimen (specimen) 09/21/2016 10:50 AM EST 09/21/2016 10:56 AM EST Narrative Resulting Agency Comment Spec In Lab Luis Enrique Quarles MD HEMATOLOGY ORDERABLE S Performing Organization Address [facility] [place] [address] * Prepare Platelets, Apheresis (09/21/2016 10:30 AM EST) Dispensed? Yes [facility] Blood specimen (specimen) 09/21/2016 10:30 AM EST 09/21/2016 10:28 AM EST Alirio Esparza MD BLOOD BANK PRODUCT ORDERABLES Performing Organization Address [facility] [place] [address] * (ABNORMAL) BLOOD GAS 2 ARTERIAL (09/21/2016 10:05 AM EST) pH, Arterial 7.33(L) 7.35 - 7.45 [facility] PCO2, Arterial 54(Critic al) 35 - 45 mmHg [facility] Comment:Noted by instrument repairer steam plant. PO2, Arterial 218(H) 85 - 104 mmHg [facility] Bicarbonate, Arterial 27.9(H) 20.0 - 26.0 mmol/L [facility] Base Excess, Arterial 2.0 -3.0 - 3.0 mmol/L [facility] Hgb Blood Gas 8.6(L) 11.7 - 15.5 gm/dL [facility] Oxyhemoglobin, Arterial 98.4(H) 94.0 - 97.0 % [facility] Carboxyhemoglo bin, Arterial 0.5 % [facility] Comment: Nonsmokers: 0.5-1.5% COHB Smokers: Variable, but usually less than 10% Toxic: 20-30% COHB Lethal: Greater than 60% COHB Methemoglobin, Arterial 0.3 <=1.5 % [facility] Na Whole Blood 129(L) 135 - 145 mmol/L [facility] K Whole Blood 6.2(Criti gabrielle) 3.5 - 5.0 mmol/L [facility] Comment: Noted by instrument repairer [...] [facility] Temp Art 37.0 Celsius [facility] Blood specimen (specimen) 09/21/2016 10:05 AM EST 09/21/2016 10:05 AM EST Alirio Esparza MD POINT OF CARE TEST ORDERABLES [facility] [place] [address] * (ABNORMAL) BLOOD GAS 2 ARTERIAL (09/21/2016 9:44 AM EST) pH, Arterial 7.22(Criti gabrielle) 7.35 - 7.45 [facility] Comment:Noted by instrument repairer steam plant. PCO2, Arterial 70(Critica l) 35 - 45 mmHg [facility] Comment:Noted by instrument repairer steam plant. PO2, Arterial 224(H) 85 - 104 mmHg [facility] Bicarbonate, Arterial 27.8(H) 20.0 - 26.0 mmol/L [facility] Base Excess, Arterial 0.0 -3.0 - 3.0 mmol/L [facility] Hgb Blood Gas 8.7(L) 11.7 - 15.5 gm/dL [facility] Oxyhemoglobin, Arterial 98.5(H) 94.0 - 97.0 % [facility] Carboxyhemoglob in, Arterial 0.6 % [facility] Comment: Nonsmokers: 0.5-1.5% COHB Smokers: Variable, but usually less than 10% Toxic: 20-30% COHB Lethal: Greater than 60% COHB Methemoglobin, Arterial 0.3 <=1.5 % [facility] Na Whole Blood 131(L) 135 [...] CARE TEST ORDERABLES [facility] [place] [address] * (ABNORMAL) Hemoglobin (09/21/2016 9:42 AM EST) Hemoglobin 7.2(L) 11.7 - 15.5 gm/dL [facility] Blood specimen (specimen) 09/21/2016 9:42 AM EST 09/21/2016 9:51 AM EST Narrative Resulting Agency Comment Spec In Lab Alirio Esparza MD HEMATOLOGY ORDERABL ES Performing Organization Address [facility] Co de Phone Number [facility] [place] [address] * Platelet count (09/21/2016 9:42 AM EST) Platelet 159 145 - 357 x10(3)/mc L [facility] Immature Plt % 1.6 0.0 - 7.4 % [facility] Comment: Limitation of the Immature Platelet Fraction (IPF)-May be less reliable when the platelet count is less than 10e821/uL due to statistical imprecision. The IPF value [...] in a decreased state of production. References: [employer] The Clinical Value of the Immature Platelet Fraction (IPF) in Cell Recovery Document Number [id number] 12/2010 [employer] The Role of the Immature Platelet Fraction (IPF) in the Differential Diagnosis of Thrombocytopenia, Document [id number] V05/07/15 P05/14 Blood specimen (specimen) 09/21/2016 9:42 AM EST 09/21/2016 9:51 AM EST Narrative Resulting Agency Comment Spec In Lab Alirio Esparza MD HEMATOLOGY ORDERABL ES Performing Organization Address [facility] Co de Phone Number [facility] [place] [address] * (ABNORMAL) Hematocrit (09/21/2016 9:42 AM EST) Pathologist [facility] Hematocrit 21.6(L) 35.7 - 45.8 % [facility] Comment: This result has been called to MICHELLE ALEJANDRE by Serjio Frazier on 09 21 2016 at 0957, and has been read back. Blood specimen (specimen) 09/21/2016 9:42 AM EST 09/21/2016 9:51 AM EST Narrative Resulting Agency Comment Spec In Lab Alirio Esparza MD HEMATOLOGY ORDERABL ES Performing Organization Address [facility] Phone Number [facility] [place] [address] * Fibrinogen (09/21/2016 9:42 AM EST) [facility] Fibrinogen 219 180 - 510 mg/dL [facility] [...] MD HEMATOLOGY ORDERABL ES Performing Organization Address [facility] de Phone Number [facility] [place] [address] * (ABNORMAL) BLOOD GAS 2 ARTERIAL (09/21/2016 9:10 AM EST) Pathologist [facility] pH, Arterial 7.36 7.35 - 7.45 [facility] PCO2, Arterial 48(H) 35 - 45 mmHg [facility] PO2, Arterial 295(H) 85 - 104 mmHg [facility] Bicarbonate, Arterial 26.0 20.0 - 26.0 mmol/L [facility] Base Excess, Arterial 0.5 -3.0 - 3.0 mmol/L [facility] Hgb Blood Gas 8.0(L) 11.7 - 15.5 gm/dL [facility] Oxyhemoglobin, Arterial 98.3(H) 94.0 - 97.0 % [facility] Carboxyhemoglob in, Arterial 1.0 % [facility] Comment: Nonsmokers: 0.5-1.5% COHB Smokers: Variable, but usually less than 10% Toxic: 20-30% COHB Lethal: Greater than 60% COHB Methemoglobin, Arterial 0.3 <=1.5 % [facility] Na Whole Blood 135 135 [...] [facility] Temp Art 37.0 Celsius [facility] Blood specimen (specimen) 09/21/2016 9:10 AM EST 09/21/2016 9:10 AM EST Alirio Esparza MD POINT OF CARE TEST ORDERABLES [facility] [place] [address] * Surgical Pathology Report (09/21/2016 9:09 AM EST) Final Diagnosis [id number] ?Location: 3T The signing pathologist has (i) [...] 9:32 AM EST [facility] AORTIC STRUCTURE / Unknown 09/21/2016 9:09 AM EST 09/21/2016 9:09 AM EST Alirio Esparza MD PATHOLOGY/CYTOLOGY ORDERABLES Performing Organization Address City/[facility]/ZIP Co de Phone Number [facility] [place] [address] * Specimen to Pathology (surgical or derm) (09/21/2016 9:09 AM EST) AP Specimen 09/21/2016 9:09 AM EST 09/21/2016 9:09 AM EST Narrative [facility] - 09/21/2016 9:09 AM EST Specimen requisition ordered. ??Separate Pathology report to follow Alirio Esparza MD PATHOLOGY/CYTOLOGY ORDERABLES Performing Organization Address City/[facility]/ZIP Co de Phone Number [facility] [place] [address] * (ABNORMAL) BLOOD GAS 2 ARTERIAL (09/21/2016 8:50 AM EST) pH, Arterial 7.41 7.35 - 7.45 [facility] PCO2, Arterial 33(L) 35 - 45 mmHg [facility] PO2, Arterial 348(H) 85 - 104 mmHg [facility] Bicarbonate, Arterial 20.6 20.0 - 26.0 mmol/L [facility] Base Excess, Arterial -4.1(L) -3.0 - 3.0 mmol/L [facility] Hgb Blood Gas 9.5(L) 11.7 - 15.5 gm/dL [facility] Oxyhemoglobin, Arterial 98.8(H) 94.0 - 97.0 % [facility] Carboxyhemoglob in, Arterial 0.3 % [facility] Comment: Nonsmokers: 0.5-1.5% COHB Smokers: Variable, but usually less than 10% Toxic: 20-30% COHB Lethal: Greater than 60% COHB Methemoglobin, Arterial 0.3 <=1.5 % [facility] Na Whole Blood 137 135 [...] CARE TEST ORDERABLES [facility] [place] [address] * (ABNORMAL) BLOOD GAS 2 ARTERIAL (09/21/2016 8:18 AM EST) pH, Arterial 7.42 7.35 - 7.45 [facility] PCO2, Arterial 36 35 - 45 mmHg [facility] PO2, Arterial 283(H) 85 - 104 mmHg [facility] Bicarbonate, Arterial 22.8 20.0 - 26.0 mmol/L [facility] LABORATORY Base Excess, Arterial -2.0 -3.0 - 3.0 mmol/L [facility] Hgb Blood Gas 12.6 11.7 - 15.5 gm/dL [facility] Oxyhemoglobin, Arterial 99.0(H) 94.0 - 97.0 % [facility] Carboxyhemoglob in, Arterial 0.6 % [facility] Comment: Nonsmokers: 0.5-1.5% COHB Smokers: Variable, but usually less than 10% Toxic: 20-30% COHB Lethal: Greater than 60% COHB Methemoglobin, Arterial 0.0 <=1.5 % [facility] Na Whole Blood 144 135 [...] [facility] FIO2 Art 95 % [facility] Flow Art 1.1 LPM [facility] PF Ratio Art 298 [facility] Temp Art 35.6 Celsius [facility] Blood specimen (specimen) 09/21/2016 8:18 AM EST 09/21/2016 8:18 AM EST Alirio Esparza MD POINT OF CARE TEST ORDERABLES [facility] [place] [address] * Prepare RBC (09/21/2016 7:05 AM EST) Dispensed? Yes [facility] Blood specimen (specimen) 09/21/2016 7:05 AM EST 09/21/2016 7:02 AM EST Alirio Esparza MD BLOOD BANK PRODUCT ORDERABLES [facility] [place] [address] * POCT Glucose (09/21/2016 6:42 AM EST) Glucose, POC 104 65 - 199 mg/dL [facility] Comment: Supplemental ranges: <140 mg/dL before meals <180 mg/dL all other times of the day Blood specimen (specimen) 09/21/2016 6:42 AM EST 09/21/2016 6:42 AM EST Narrative Authorizing Provider Result Slade Esparza MD POINT OF CARE TEST ORDERABLES Performing Organization Address City/[facility]/ZIP Co de Phone Number [facility] [place] [address] documented in this encounter Visit Diagnoses Not [...] dose on Wed09/21/16 at 1230, Until Discontinued, Holliday teeth, Routine Given 09/25/2016 9:40 AM EST [...] Barnes RN) 0942 (Given - Provider: Joselyn Cacrees RN) aspirin suppository 300 mg(Linked Group 1) [...] 1622 (Given - Provider: Chaya Hill, VALDO) buPROPion (WELLBUTRIN SR or ZYBAN) SR tablet [...] dose on Wed09/21/16 at 1230, Until Discontinued, Holliday teeth, Routine 0900 (Not Given - Provider: [...] RN) 0828 (Given - Provider: Marek Barnes, RN) 0941 (Given - Provider: Joselyn Caceres, VALDO) furosemide (LASIX) injection 20 mg (CANCELED) 20 mg, Intravenous, 2 TIMES DAILY, First dose on Wed09/23/16 at 1130, Until Discontinued 1301 (Given - Provider: Federico Apple, RN)1708 (Given - Provider: Federico Apple, VALDO) [...] Apple, VALDO) 08 (Given - Provider: Marek Barnes RN)2042 [...] 0817 (Given - Provider: Elsa Miguel RN) 08 [...] earlier in shift)1100 (Not Given - Provider: Joselny Caceres RN - Reason: See comment - [...] Routine documented in this encounter Care Teams Mail Censor Relationship Specialty Start Date End Date Deborah Quiroga, OFFICE SERVICES SPECIALIST PCP - General Family Medicine 03/24/16 02/04/23 documented as of this encounter
--- OUTSIDE RECORDS SUMMARY | 2024-03-14 14:11 | XMS_ITS | Encounter Summary ---
Author Organization Formerly [facility], [facility] [place] [address] Care Team Providers Care Middle Card Tender Name Role Phone Deborah Quiroga ANURAG Primary Care Provider [phone] Encounter Details Date Type Department Care Team (Late st Contact Info) Description 07/13/2016 External [place] [phone] Provider, Scanning Social History Tobacco Use Types [...] 4:15 PM EDT Office Visit Dermatology at [place] [address] [place] [phone] Marek Bonilla MD [address], [place] [address] documented as of this encounter Procedures Procedure Name Priority Date/Time Associated Diagnosis Comments SURGICAL PATHOLOGY SCAN Routine 07/13/2016 documented in this encounter Results * Scan Doc: Surgical Pathology (07/13/2016) Nitesh Pina Jr., MD MEDIA MGR SCAN EXT O RDR/RSLT documented in this encounter Visit Diagnoses Not on filedocumented in this encounter Care Teams Middle Card Tender Relationship Specialty Start Date End Date Deborah Quiroga APRN PCP - General Family Medicine 03/24/16 02/04/23 documented as of this encounter
--- OUTSIDE RECORDS SUMMARY | 2024-03-14 14:11 | XMS_ITS | Encounter Summary ---
Author Organization [facility] Address [facility] [place] [address] Care Team Providers Care Agricultural Plow Operator Name Role Phone Junaid, Deborah Shields APRN Primary Care Provider [phone] Reason for Visit * Auth/Cert Specialty Diagnoses / Procedures Referred By Crispin t Referred To Contact Diagnoses AVS Procedures CARDIAC CATHETERIZATION Referral ID Status Reason Start Date Expiration Date Visits Re quested Visits Authorized [id number] 1 1 Encounter Details Date Type Department Care Team (Late st Contact Info) Description 06/03/2016 7:30 AM EDT - 06/03/2016 8:30 AM EDT [place] [phone] Mario Alberto Escobedo MD [facility] [place] [address] CARDIAC CATHETERIZATION Social History Tobacco Use Types [...] by your doctor, do not take any hlon-czv-nedgijk medicinesor herbal preparations without first discussing this with your doctor or pharmacist. There is the possibility of side effects and interactions when these are combined. Follow Up Care Who to call with questions or problems If there are any questions or problems that you think might be related to your cardiac cath or angioplasty, contact the order booker manager relationship by calling [facility] at . * Patient Instructions* Felicia Corrigan - 06/03/2016 9:33 AM EDT Cardiology Instructions Call your doctor if: Chest pain, dyspnea, pain or swelling in legs occurs. If you have non-emergent questions between now and the time of your follow up appointments: -During 8am-5pm Wednesday through Wednesday call [phone] to speak with a nurse in the cardiology clinic -All other times call [phone] and ask to speak to the hat cutter manager relationship. MEDICATIONS - restart your spironolactone, discontinue prior [...] Appointments: Primary care provider: Cardiology: Deborah Hahn, FOOD QUALITY TECHNICIAN [phone] Follow up as planned or as needed. Dr. Esparza [phone] Other follow-up appointment: Hematology - Dr. Mario [...] 4:15 PM EDT Office Visit Dermatology at [place] [address] [place] [address] Marek Bonilla MD [address], [place] [address] documented as of this encounter Procedures Procedure [...] Green Tube HOLD (06/03/2016 11:45 AM EDT) [facility] Green Hold Sample in lab. [facility] Blood specimen (specimen) Venous Draw / Unknown 06/03/2016 11:45 AM EDT 06/03/2016 12:12 PM EDT Mario Alberto Escobedo MD CHEMISTRY ORDERABLES Performing Organization Address [facility] de Phone Number [facility] [place] [place] [address] * Methylmalonic acid, serum (06/03/2016 11:45 AM EDT) [facility] Methylmalonic Acid (NOVEMBER) 0.21 <=0.40 nmol/mL [facility] Comment: Test Performed by: [place] [address] Assembly Leader: Raymond Chaudhry II, M.D., Ph.D. Blood specimen (specimen) 06/03/2016 11:45 AM EDT 06/03/2016 1:57 PM EDT Narrative Resulting Agency Comment Spec In Lab Mario Alberto Escobedo MD LAB SEND OUT ORDERAB LES Performing Organization Address [facility] Co de Phone Number [facility] [place] [place] [address] * Granulocyte Antibody (06/03/2016 11:45 AM EDT) [facility] Granulocyte Ab (NOVEMBER) Negative Not Applicable [facility] Comment: ADDITIONAL INFORMATION Method: Immunofluorescent Assay Performing Laboratory CLIA# [id number] This test was developed and its performance characteristics determined by [facility] in a manner consistent with CLIA requirements. This test has not been cleared or approved by the U.S. Food and Drug Administration. Test Performed by: [facility] - [address] [address] Assembly Leader: Raymond Chaudhry II, M.D., Ph.D. Blood specimen (specimen) 06/03/2016 11:45 AM EDT 06/03/2016 1:57 PM EDT Narrative Resulting Agency Comment Spec In Lab Mario Alberto Escobedo MD LAB SEND OUT ORDERAB LES Performing Organization Address [facility] Co de Phone Number [facility] [place] [place] [address] * TSH (06/03/2016 11:45 AM EDT) Thyroid Stimulating Hormone 2.18 0.27 - 4.20 mcIU/mL [facility] Blood specimen (specimen) 06/03/2016 11:45 AM EDT 06/03/2016 12:11 PM EDT Narrative Resulting Agency Comment Spec In Lab Mario Alberto Escobedo MD CHEMISTRY ORDERABLES Performing Organization Address [facility] Co de Phone Number [facility] [place] [address] * Homocysteine Total, Plasma (06/03/2016 11:45 AM EDT) Homocystine 9 <=15 mcmol/L [facility] Blood specimen (specimen) 06/03/2016 11:45 AM EDT 06/03/2016 12:11 PM EDT Narrative Resulting Agency Comment Spec In Lab Mario Alberto Escobedo MD CHEMISTRY ORDERABLES Performing Organization Address [facility] Co de Phone Number [facility] [place] [address] * Folate, serum (06/03/2016 11:45 AM EDT) Folate >20.0 4.8 - 24.2 ng/mL [facility] Blood specimen (specimen) 06/03/2016 11:45 AM EDT 06/03/2016 12:04 PM EDT Narrative Resulting Agency Comment Spec In Lab Mario Alberto Escobedo MD CHEMISTRY ORDERABLES Performing Organization Address [facility] Co de Phone Number [facility] [place] [address] * (ABNORMAL) Sedimentation rate (06/03/2016 11:45 AM EDT) Sedimentation Rate Automated 41(H) 0 - 20 mm/hr [facility] Blood specimen (specimen) 06/03/2016 11:45 AM EDT 06/03/2016 12:04 PM EDT Narrative Resulting Agency Comment Spec In Lab Mario Alberto Escobedo MD HEMATOLOGY ORDERABLE S Performing Organization Address [facility] Co de Phone Number [facility] [place] [address] * Lactate Dehydrogenase (06/03/2016 11:45 AM EDT) Lactate Dehydrogenase 164 110 - 220 unit/L [facility] Blood specimen (specimen) 06/03/2016 11:45 AM EDT 06/03/2016 12:11 PM EDT Narrative Resulting Agency Comment Spec In Lab Mario Alberto Escobedo MD CHEMISTRY ORDERABLES Performing Organization Address [facility] Co de Phone Number [facility] [place] [address] * Comprehensive metabolic panel (non-fasting) (06/03/2016 11:45 AM EDT) Glucose 90 65 - 199 mg/dL [facility] Comment:Diabetes: >=200 mg/d L plus symptoms Blood Urea Nitrogen 11 8 - 18 mg/dL [facility] Creatinine 0.83 0.70 - 1.20 mg/dL [facility] Comment: Please note that the pediatric reference intervals supplied above were not validated at [facility]. Results from pediatric patients should be interpreted in conjunction to the patient's age, height and muscle mass. Sodium 143 135 - 145 mmol/L [facility] Potassium 4.0 3.5 - 5.0 mmol/L [facility] Comment: Please note: ??Patients with WBC >100,000 may have falsely elevated Potassium levels. ??For accurate Potassium quantification in these patients send serum separator tube (gold top) for subsequent determinations. ??Contact the Clinical Chemistry Laboratory if there are any questions. Chloride 104 98 - 107 mmol/L [facility] Carbon Dioxide 25 22 - 31 mmol/L [facility] Anion Gap 14 5 - 15 mmol/L [facility] Calcium 9.2 8.5 - 10.5 mg/dL [facility] Protein, Total 7.0 6.1 - 8.0 gm/dL [facility] Albumin 4.0 3.2 - 5.2 gm/dL [facility] Aspartate Aminotransferase 17 0 - 30 unit/L [facility] Alanine Aminotransferase 9 0 - 30 unit/L [facility] Alkaline Phosphatase 81 40 - 104 unit/L [facility] Bilirubin, Total 0.4 0.2 - 1.3 mg/dL [facility] Bilirubin, Direct 0.1 0.0 - 0.3 mg/dL [facility] Est Glomerular Filtration Rate >60 >=60 [facility] Comment: [...] the following links into your internet browser. [email or web address] Blood specimen (specimen) 06/03/2016:45 AM EDT 06/03/2016 12:11 PM EDT Narrative Resulting Agency Comment Spec In Lab Mario Alberto Escobedo MD CHEMISTRY ORDERABLES [facility] [place] [address] documented in this encounter Visit Diagnoses Diagnosis [...] Hernandez) documented in this encounter Care Teams Agricultural Plow Operator Relationship Specialty Start Date End Date Deborah Quiroga APRN PCP - General Family Medicine 03/24/16 02/04/23 documented as of this encounter
--- OUTSIDE RECORDS SUMMARY | 2024-03-14 14:11 | XMS_ITS | Encounter Summary ---
[place] [address] Care Team Providers Care Straightedge Worker Name Role Phone Ashley Quirogan Cornelius ANURAG Primary Care Provider [phone] Encounter Details Date Type Department Care Team (Late st Contact Info) Description 07/03/2016 External Results Hematology [place] [address] Matthew Cervantes, DO [address] [place] [address] Social History Tobacco Use Types Packs/Day Years [...] PM EDT Office Visit Dermatology at [place] [address] [place] [phone] Marek Bonilla MD [address], [address] A DERMATOLOGY [place], [place] [id number] documented as of this encounter Procedures Procedure Name Priority Date/Time Associated Diagnosis Comments BONE MARROW ASPIRATION PERFO RMED WITH BONE MARRROW BIOPSY Routine 06/28/2016 documented in this encounter Results * BONE MARROW ASPIRATION PREFORMED WITH BONE MARRROW BIOPSY (06/28/2016) Matthew Cervantes DO GENERAL SURGI DANIEL ORDERABLES documented in this encounter Visit Diagnoses Not on filedocumented in this encounter Care Teams Straightedge Worker Relationship Specialty Start Date End Date Deborah Quiroga, JOINT CLEANING MACHINE OPERATOR PCP - General Family Medicine 03/24/16 02/04/23 documented as of this encounter
--- OUTSIDE RECORDS SUMMARY | 2024-03-14 14:11 | XMS_ITS | Encounter Summary ---
[place] [address] Care Team Providers Care Clay House Worker Name Role Phone JunaidDeborah APRN Primary Care Provider [phone] Reason for Visit * Reason Onset Date Comments Labs Only 09/16/2016 Encounter Details Date Type Department Care Team (Late st Contact Info) Description 09/16/2016 Telephone [place] [phone] Alexandrea Greenwood, RN Labs Only Social History [...] 09/16/2016 11:09 AM EST Message received from service secretary: Purnima is having her Neulasta done today at [facility]. ??She is wondering if we want to do a CBC prior to the injection? [phone] Borjas: CBC is fine RN spoke with Swapna at [facility] who confirms they can draw CBC on pt today, RN faxed CBC w/diff to [facility] lab at [phone] RN relayed to pt that CBC ordered had been faxed to [facility], pt will have CBC drawn today prior to neulasta injection. documented in this encounter Plan of Treatment Upcoming Encounters Date Type Department Care Team (Late st Contact Info) Description 03/01/2025 4:15 PM EDT Office Visit Dermatology at [place] [address] [facility] [place] [address] Marek Bonilla MD [address], [address] [place] [address] documented as of this encounter Results * [...] type documented in this encounter Care Teams Clay House Worker Relationship Specialty Start Date End Date Deborah Quiroga APRN PCP - General Family Medicine 03/24/16 02/04/23 documented as of this encounter
--- OUTSIDE RECORDS SUMMARY | 2024-03-14 14:11 | XMS_ITS | Encounter Summary ---
[place] [address] Care Team Providers Care Attendant Honor Bar Name Role Phone Deborah Quiroga APRN Primary Care Provider [phone] Encounter Details Date Type Department Care Team (Late st Contact Info) Description 08/04/2016 External Results Hematology [place] [address] Alexandrea Greenwood RN Neutropenia, unspecified type Social [...] 4:15 PM EDT Office Visit Dermatology at [place] [address] [place] [address] Marek Bonilla MD [address], [place] [address] documented as of this encounter Procedures Procedure [...] type documented in this encounter Care Teams Attendant Honor Bar Relationship Specialty Start Date End Date Deborah Quiroga, FIELD EDUCATION DIRECTOR PCP - General Family Medicine 03/24/16 02/04/23 documented as of this encounter
--- OUTSIDE RECORDS SUMMARY | 2024-03-14 14:11 | XMS_ITS | Encounter Summary ---
Author Organization [facility] Address [facility] [place] [address] Care Team Providers Care Plaque Maker Name Role Phone Deborah Quiroga APRN Primary Care Provider [phone] Encounter Details Date Type Department Care Team (Late st Contact Info) Description 06/16/2016 Orders Only Hematology [place] [address] Nitesh Pina Jr., MD [address] HEMATOLOGY AND [place] [address] Cyclical neutropenia Social History Tobacco Use Types [...] 4:15 PM EDT Office Visit Dermatology at [place] [address] [place] [address] Marek Bonilla MD [address], [place] A DERMATOLOGY [place], [place] [phone] documented as of this encounter Visit Diagnoses Diagnosis Cyclical neutropenia Cyclic neutropenia documented in this encounter Care Teams Plaque Maker Relationship Specialty Start Date End Date Deborah Quiroga APRN PCP - General Family Medicine 03/24/16 02/04/23 documented as of this encounter
--- OUTSIDE RECORDS SUMMARY | 2024-03-14 14:11 | XMS_ITS | Encounter Summary ---
Author Organization [facility] Address [facility] [place] [address] Care Team Providers Care Rolled Seat Trimmer Name Role Phone Deborah Quiroga APRN Primary Care Provider Encounter Details Date Type Department Care Team (Late st Contact Info) Description 07/17/2016 9:00 AM EST Office Visit [place] [address] Markel Borjas MD [address] [place] [address] Neutropenia, unspecified type Social History Tobacco Use [...] 07/17/2016 9:00 AM EST Hematology Outpatient Clinic [facility] Hematology Outpatient Consult Note CC: [...] TOUCH PREP, CLOT SECTION, CORE ??BIOPSY); [OSR# [id number], COLLECTED 06/23/2016, 19 SLIDES]: ?1. 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 Labs will be drawn at [facility] next week Imaging As above - [...] leukopenia. Will consi kanwal talking to pt's cloth grader about a switch from ACEI to ARB [...] the original note were not included. [facility] HEM ONC [facility] [address] Date: 07/17/16 Patient Name: Purnima Thacker : 1955 Diagnosis: neutropenia Referral to [site]: [facility] Orders: ? Labs: Fax results to . [x] Draw CBC, copper level, CMV PCR, mononucleosis screen on 07/20 Repeat CBC on 07/30 (to measure response of WBC after Neulasta) ? Growth factor: [x] Neulasta 6mg SQ injection x 1 on 07/20/2016 Signature: Markel Borjas MD beeper # [id number] documented in this encounter Plan of Treatment Upcoming Encounters Date Type Department Care Team (Late st Contact Info) Description 03/01/2025 4:15 PM EDT Office Visit Dermatology at [place] [address] [place] [address] Marek Bonilla MD [address], [place] [address] documented as of this encounter [...] ORDERAB LES Performing Organization Address [facility] Co de Phone Number EXTERNAL LAB * Mononucleosis Screen (07/20/2016 10:30 AM EST) Mononucleosis Screen neg neg - neg EXTERNAL LAB Blood specimen (specimen) 07/20/2016 10:30 AM EST Markel Borjas MD IMMUNOLOGY ORDERAB LES Performing Organization Address [facility] Co de Phone Number EXTERNAL LAB * Copper, serum (07/20/2016 10:30 AM EST) Pathologist [facility] Copper (NOVEMBER) 1.09 0.75 - 1.45 EXTERNAL LAB Blood specimen (specimen) 07/20/2016 10:30 AM EST Markel Borjas MD LAB SEND OUT ORDER JODIE Performing Organization Address [facility] de Phone Number EXTERNAL LAB * CMV PCR, Quantitative (07/20/2016 10:30 AM EST) Pathologist [facility] CMV PCR,Quantitati ve undetected EXTERNAL LAB Blood specimen (specimen) 07/20/2016 10:30 AM EST Markel Borjas MD MOLECULAR ORDERABL ES Performing Organization Address [facility] Co de Phone Number EXTERNAL LAB * (ABNORMAL) CBC (with Diff) (07/20/2016 10:30 AM EST) Pathologist [facility] White Blood Cell 1.61(A) 4.4 - 10.8 EXTERNAL LAB Hemoglobin 12.3 12.0 - 16.0 EXTERNAL LAB Hematocrit 37.2 36.0 - 46.0 EXTERNAL LAB Platelet 229 130 - 400 EXTERNAL LAB Blood specimen (specimen) 07/20/2016 10:30 AM EST Markel Borjas MD HEMATOLOGY ORDERAB LES EXTERNAL LAB documented in this encounter Visit Diagnoses Diagnosis Neutropenia, unspecified type documented in this encounter Care Teams Rolled Seat Trimmer Relationship Specialty Start Date End Date Deborah Quiroga, DOCUMENT MANAGEMENT ANALYST PCP - General Family Medicine 03/24/16 02/04/23 documented as of this encounter
--- OUTSIDE RECORDS SUMMARY | 2024-03-14 14:11 | XMS_ITS | Encounter Summary ---
Author Organization [facility] [place] [address] Care Team Providers Care Printed Circuit Boards Beveler Name Role Phone Deborah Quiroga APRN Primary Care Provider [phone] Encounter Details Date Type Department Care Team (Late st Contact Info) Description 07/31/2016 External Results [place]ematology [place] [address] Alexandrea Greenwood RN Neutropenia, unspecified type Social [...] 4:15 PM EDT Office Visit Dermatology at [place] [address] [place] [phone] Marek Bonilla MD [address], [place] [address] documented as of this encounter Procedures Procedure [...] type documented in this encounter Care Teams Printed Circuit Boards Beveler Relationship Specialty Start Date End Date Deborah Quiroga, DISPATCH SUPERVISOR PCP - General Family Medicine 03/24/16 02/04/23 documented as of this encounter
--- OUTSIDE RECORDS SUMMARY | 2024-03-14 14:11 | XMS_ITS | Encounter Summary ---
[place] [address] Care Team Providers Care Lawyers Name Role Phone Deborah Quiroga ANURAG Primary Care Provider [phone] Reason for Visit * Reason Onset Date Comments Medical Care Coordination 07/31/2016 Encounter Details Date Type Department Care Team (Late st Contact Info) Description 07/31/2016 Telephone Hematology [place] [phone] Alexandrea Greenwood RN Medical Care Coordination Social [...] 08/04/15 RN spoke with Aydee of the [facility] lab who states they can draw pt's cbc on 08/04/15, RN faxed lab req to [phone] at Aydee's request. RN instructed pt on Dr. Borjas's direction above. Pt verbalized understanding. documented in this encounter Plan of Treatment Upcoming Encounters Date Type Department Care Team (Late st Contact Info) Description 03/01/2025 4:15 PM EDT Office Visit Dermatology at [place] [address] [place] [address] Marek Bonilla MD [address], [place] [address] documented as of this encounter Visit Diagnoses Not on filedocumented in this encounter Care Teams Lawyers Relationship Specialty Start Date End Date Deborah Quiroga APRN PCP - General Family Medicine 03/24/16 02/04/23 documented as of this encounter
--- OUTSIDE RECORDS SUMMARY | 2024-03-14 14:11 | XMS_ITS | Encounter Summary ---
Author Organization [facility] [place] [address] Care Team Providers Care Surveillance Supervisor Name Role Phone Deborah Quiroga APRN Primary Care Provider Encounter Details Date Type Department Care Team (Latest Contact Info) Description 07/10/2016 2:54 PM EST - 07/10/2016 11:59 PM EST Hospital [place] [phone] Discharge Disposition: Home Social History Tobacco Use [...] 4:15 PM EDT Office Visit Dermatology at [place] [address] [place] [address] Marek Bonilla MD [address], [place] [address] documented as of this encounter Procedures Procedure Name Priority Date/Time Associated Diagnosis Comments BONE MARROW FINAL REPORT Routine 07/10/2016 3:43 PM EST documented in this encounter Results * Bone Marrow Final Report (07/10/2016 3:43 PM EST) Final Diagnosis [id number] ?Location: OPW The signing pathologist has (i) examined the relevant preparation(s) for the specimen(s) and (ii) rendered or confirmed the diagnosis(es). . ? Bone Marrow Final DIAGNOSIS BONE MARROW (PERIPHERAL SMEAR, ASPIRATE SMEAR, TOUCH PREP, CLOT SECTION, CORE BIOPSY); [OSR# [id number], COLLECTED 06/23/2016, 19 SLIDES]: ?? 1. ??Normocellular [...] clonal lymphoproliferative or myeloproliferative ? disorder (OSR# [id number]) ?Chromosome analysis on the marrow aspirate revealed a normal female karyotype; ?46,XX[25] ??(OSR# [id number]) Electronically signed by: ??Elian Guillen MD Verified: [...] 3/uL Band/Seg 0.52 x103/uL; Lymph 0.75 x103/uL; [place] 0.15 x103/uL; Eos 0.01%; Baso 0.01 x10 [...] plasma cells represent 3-4% of the cellularity [place] ? Polytypic plasma cell staining, high background Lambda ?Polytypic plasma cell staining, high background Block: ? B2 (Core biopsy 2) Fixative: ?? Formalin ANTIBODY: ?? RESULT/COMMENT CD3 ? Scattered small lymphocytes and lymphoid aggregates highlighted CD20 ?Few scattered small lymphocytes stain ( ?? <CD3 in aggregates) CD138 ? Scattered plasma cells represent 3-4% of the cellularity [place] ? Polytypic plasma cell staining, high background Lambda ?Polytypic plasma cell staining, high background Note: The immunoperoxidase stains reported above were developed and their performance characteristics determined by [facility]. ??They have not been [...] CONSULTATION CASE A - 19 slides labeled [id number], collection date 06/23/2016. [id number] Report to: [facility] Surgical Pathology Department [facility], [facility], [address]nd Floor [address], [place] ??[address] 07/13/2016 11:38 AM EST [facility] Consult Case 07/10/2016 3:43 PM EST 07/10/2016 3:43 PM EST Nitesh Pina Jr., MD PATHOLOGY/CYTOLOGY O RDERABLES Performing Organization Address City/State/[facility] Co de Phone Number [facility] [place] [address] documented in this encounter Visit Diagnoses Not on filedocumented in this encounter Care Teams Surveillance Supervisor Relationship Specialty Start Date End Date Deborah Quiroga, ANURAG PCP - General Family Medicine 03/24/16 02/04/23 documented as of this encounter
--- OUTSIDE RECORDS SUMMARY | 2024-03-14 14:11 | XMS_ITS | Encounter Summary ---
[place] [address] Care Team Providers Care Superintendent Division Name Role Phone Deborah Quiroga ANURAG Primary Care Provider [phone] Encounter Details Date Type Department Care Team (Late st Contact Info) Description 09/11/2016 Orders Only Hematology [place] [address] Alexandrea Greenwood RN Social History [...] N [facility] HEM ONC [facility] [phone] Date: 09/11/16 Patient Name: Purnima Thacker : 1955 Diagnosis: Neutropenia Referral to [site]: [facility] Orders: ? Growth factor: [x] Neulasta 6mg SQ injection x 1 on 09/16/16 Signature: Markel Borjas MD beeper # [id number] Co-signature [if needed]: documented in this encounter Plan of Treatment Upcoming Encounters Date Type Department Care Team (Late st Contact Info) Description 03/01/2025 4:15 PM EDT Office Visit Dermatology at [place] [address] [place] [address] Marek Bonilla MD [address], [address] [place] [address] documented as of this encounter Procedures Procedure Name Priority Date/Time Associated Diagnosis Comments TRANSESOPHAGEAL ECHOCARDIOGRAM (GAVINO) Routine 09/22/2016 documented in this encounter Results * Transesophageal Echocardiogram (GAVINO) (09/22/2016) Anatomical Region Laterality Modality Other 09/22/2016 Narrative 09/22/2016 8:30 AM EST Procedure: ?Transesophageal Echocardiogram Patient: ?ANDREW ECHOLS M ? (Age): 1955(61y) Med Rec#: ? [id number] ?Sex: ?M ? Site Loc: ? [facility] ?Ht / Wt: ??(cm)/ (kg) ? Pt. Loc: ?OR ? Study Date: ?? 09/21/2016 ?Pt. Type: Tape: ? Referring: Alirio Francisco Reading: Henrik Yarbrough ([id number]) Power Press Supervisor: Jacobo Patel ([id number]) Interpreting Fellow: Jacobo Patel ([id number]) Diagnosis: *Aortic valve disorders (424.1) CPT Codes: *Echo GAVINO Full (75371) Indication: ?? AVR for severe Rhythm: ? [...] ? Mid-Inferior ?Normal ? Mid-Inferoseptal ?Normal ? Austin-Septal ? Normal ? Austin-Anterior ? Normal ? Austin-Lateral ?Normal ? Austin-Inferior ? Normal ? Austin-Tip ?Normal ? This report has been electronically signed by: Henrik Yarbrough M.D. ? 09/22/2016 08:30:41 Images reviewed and interpretation verified [facility] Cardiac Ultrasound Laboratory Procedure Note Henrik Yarbrough MD - 09/22/2016 Procedure: Transesophageal Echocardiogram Patient: ANDREW Mejias (Age): 1955(61y) Med Rec#: [id number] Sex: M Site Loc: [facility] Ht / Wt: (cm)/ (kg) Pt. Loc: OR Study Date: 09/21/2016 Pt. Type: Tape: Referring: Alirio Francisco Reading: Henrik Yarbrough ([id number]) Power Press Supervisor: Jacobo Patel ([id number]) Interpreting Fellow: Jacobo Patel ([id number]) Diagnosis: *Aortic valve disorders (424.1) CPT Codes: *Echo GAVINO Full (34640) Indication: AVR for severe Rhythm: Sinus SUMMARY: [...] Normal Mid-Posterolateral Normal Mid-Inferior Normal Mid-Inferoseptal Normal Austin-Septal Normal Austin-Anterior Normal Austin-Lateral Normal Austin-Inferior Normal Austin-Tip Normal This report has been electronically signed by: Henrik Yarbrough M.D. 09/22/2016 08:30:41 Images reviewed and interpretation verified [facility] Cardiac Ultrasound Laboratory Unknown ECHO ORDERABLES documented in this encounter Visit Diagnoses Not on filedocumented in this encounter Care Teams Superintendent Division Relationship Specialty Start Date End Date Deborah Quiroga APRN PCP - General Family Medicine 03/24/16 02/04/23 documented as of this encounter
--- OUTSIDE RECORDS SUMMARY | 2024-03-14 14:11 | XMS_ITS | Encounter Summary ---
Author Organization [facility] Address [facility] [place] [address] Care Team Providers Care Proposal Manager Name Role Phone Ashley Quirogazac Shields APRN Primary Care Provider [phone] Encounter Details Date Type Department Care Team (Latest Contact Info) Description 06/19/2016 - 06/19/2016 11:59 PM EST Hospital Encounter [place] [address] Nitesh Pina Jr., MD [facility] [address] [facility] [place] [address] Pain Discharge Disposition: Home Social History Tobacco [...] 4:15 PM EDT Office Visit Dermatology at [place] [address] [place] [address] Marek Bonilla MD [address], [place] [address] documented as of this encounter Procedures Procedure Name Priority Date/Time Associated Diagnosis Comments FILM LIBRARY STORAGE ONLY CT CHEST ABDOMEN PELVIS Routine 06/19/2016 12:00 AM EST Pain documented in this encounter Results * Film Library- Storage Only CT Chest Abdomen Pelvis (06/19/2016 12:00 AM EST) Narrative [facility] - 06/20/2016 8:53 AM EST This exam is for storage only and is auto-finalizing. Nitesh Pina Jr., MD IMG FILM LIBRARY ORD ERABLES [place], [place] documented in this encounter Visit Diagnoses Diagnosis Pain Generalized pain documented in this encounter Care Teams Proposal Manager Relationship Specialty Start Date End Date Deborah Quiroga APRN PCP - General Family Medicine 03/24/16 02/04/23 documented as of this encounter
--- OUTSIDE RECORDS SUMMARY | 2024-03-14 14:11 | XMS_ITS | Encounter Summary ---
Author Organization [facility] Address [facility] [place] [address] Care Team Providers Care Engineering Technology Instructor Name Role Phone Ashley Quirogan Sylvia ANURAG Primary Care Provider [phone] Reason for Visit * Consultation (Urgent) - Closed Specialty Diagnoses / Procedures Referred By Crispin t Referred To Contact Cardiac Surgery Diagnoses aortic stenosis, consideration for valve replacement Antelmo Burrell MD [address] [place] [address] Alirio Esparza MD [address] C[place] [address] Referral ID Status Reason Start Date Expiration Date V isits Requested Visits Authorized [id number] Closed Connection Center 03/04/2016 03/04/2017 1 1 Encounter Details Date Type Department Care Team (Late st Contact Info) Description 03/24/2016 10:40 AM EDT Office [place] [address] Alirio Esparza MD [address] [address] C[place] [address] Aortic valve stenosis, unspecified etiology Social History [...] This is a patient of Antelmo Burrell [facility] Cardiology. Mrs. Thacker is being sent for [...] 30 minute visit, 20 minutes were spent [id number] with the patient discussing aortic stenosis and valve replacement. documented in this encounter Plan of Treatment Upcoming Encounters Date Type Department Care Team (Mi st Contact Info) Description 03/01/2025 4:15 PM EDT Office Visit Dermatology at [place] [address] [place] [address] Marek Bonilla MD [address] [place] [address] documented as of this encounter Visit Diagnoses Diagnosis Aortic valve stenosis, unspecified etiology documented in this encounter Care Teams Engineering Technology Instructor Relationship Specialty Start Date End Date Deborah Quiroga, ANURAG PCP - General Family Medicine 03/24/16 02/04/23 documented as of this encounter
--- OUTSIDE RECORDS SUMMARY | 2024-03-14 14:11 | XMS_ITS | Encounter Summary ---
[place] [address] Care Team Providers Care Social Media Senior Associate Name Role Phone Deborah Quiroga ANURAG Primary Care Provider [phone] Reason for Visit * Reason Onset Date Comments Medical Care Coordination 07/17/2016 Encounter Details Date Type Department Care Team ([facility] Contact Info) Description 07/17/2016 Telephone Hematology [place] [address] Alexandrea Greenwood RN Medical Care Coordination Social [...] 07/17/2016 12:07 PM EST Message received from hospital secretary: Injection/Infusion Referral Call placed to [phone]). Spoke w/ Pasquale. Services to be provided for pt are: Labs @ 10am ([facility]) & Neulasta @ 11am on 07/20/16, CBC only on 07/30/16 Pasquale confirmed they would provide services to pt and I left [facility] for pt to call for appt info. Pt demographics, office note, med list and orders faxed to [facility] & [facility] documented in this encounter Plan of Treatment Upcoming Encounters Date Type Department Care Team (Late st Contact Info) Description 03/01/2025 4:15 PM EDT Office Visit Dermatology at [place] [address] [place] [address] Marek Bonilla MD [address], [place] [address] documented as of this encounter Visit Diagnoses Not on filedocumented in this encounter Care Teams Social Media Senior Associate Relationship Specialty Start Date End Date Deborah Quiroga APRN PCP - General Family Medicine 03/24/16 02/04/23 documented as of this encounter
--- OUTSIDE RECORDS SUMMARY | 2024-03-14 14:11 | XMS_ITS | Encounter Summary ---
[place] [address] Care Team Providers Care Shoulder Joiner Name Role Phone Ashley Quirogan Cornelius ANURAG Primary Care Provider [phone] Encounter Details Date Type Department Care Team (Late st Contact Info) Description 03/24/2016 Notes [place] [address] Alfa Lua Social History Tobacco Use Types [...] assessments completed: Wadsworth Score: 6/6 IADL: 7/7 Sausage Machine Operator Strength Trials: 18.4, 15.0, 16.8 (right hand dominant) 5 meter walk test in seconds x3: 4.98, 4.88, 4.45 KCCQol: 98% Alfa Lua documented in this encounter Plan of Treatment Upcoming Encounters Date Type Department Care Team (Late st Contact Info) Description 03/01/2025 4:15 PM EDT Office Visit Dermatology at [place] [address] [place] [address] Marek Bonilla MD [address], [place] [address] documented as of this encounter Visit Diagnoses Not on filedocumented in this encounter Care Teams Shoulder Joiner Relationship Specialty Start Date End Date Deborah Quiroga APRN PCP - General Family Medicine 03/24/16 02/04/23 documented as of this encounter
--- OUTSIDE RECORDS SUMMARY | 2024-03-14 14:11 | XMS_ITS | Encounter Summary ---
Author Organization [facility] Address [facility] [place] [address] Care Team Providers Care Embryology Teacher Name Role Phone Junaid Deborah Shields APRN Primary Care Provider [phone] Encounter Details Date Type Department Care Team (Latest Contact Info) Description 08/18/2016 4:40 PM EST Laboratory [place] [phone] Aortic valve stenosis, unspecified etiology Social History [...] 4:15 PM EDT Office Visit Dermatology at [place] [address] [place] [address] Marek Bonilla MD [address] [place] [address] documented as of this encounter Procedures Procedure Name Priority Date/Time Associated Diagnosis Comments ABORH RECHECK STATUS Routine 08/18/2016 4:50 PM EST TYPE AND SCREEN, SDP (FUTURE SURGERY, [facility] SAME DAY PROGRAM ONLY) Routine 08/18/2016 4:50 [...] 4:50 PM EST) ABORH Type Recheck Completed [facility] Blood specimen (specimen) 08/18/2016 4:50 PM EST 08/18/2016 5:27 PM EST Narrative Resulting Agency Comment Spec In Lab Alirio Esparza MD BLOOD BANK LAB BETH SHANNONROMERO [facility] [place] [address] * Antibody screen (08/18/2016 4:50 PM EST) Ab Screen Interp Negative [facility] Expires at [id number] on: 09/24/2016 [facility] Comment: Corrected from 09/17/16 12:00 [Unknown] on 09/09/16 02:32 by Shireen Treviño Blood specimen (specimen) 08/18/2016 4:50 PM EST 08/18/2016 5:11 PM EST Narrative Resulting Agency Comment Spec In Lab Alirio Esparza MD BLOOD BANK LAB ORDSylvia ORTEGAROMERO [facility] [place] [address] * ABO/Rh Typing (08/18/2016 4:50 PM EST) ABORH Type B Pos [facility] Blood specimen (specimen) 08/18/2016 4:50 PM EST 08/18/2016 5:11 PM EST Narrative Resulting Agency Comment Spec In Lab Alirio Esparza MD BLOOD BANK LAB BETH ALEJO Lidia Organization Address City/State/ZIP Co de Phone Number [facility] [place] [address] * Basic Metabolic Panel (non-fasting) (08/18/2016 4:50 PM EST) Glucose 82 65 - 199 mg/dL [facility] Comment:Diabetes: >=200 mg/d L plus symptoms Blood Urea Nitrogen 12 8 - 18 mg/dL [facility] Creatinine 0.87 0.70 - 1.20 mg/dL [facility] Comment: Please note that the pediatric reference intervals supplied above were not validated at [facility]. Results from pediatric patients should be interpreted in conjunction to the patient's age, height and muscle mass. Sodium 142 135 - 145 mmol/L [facility] Potassium 3.8 3.5 - 5.0 mmol/L [facility] Comment: Please note: ??Patients with WBC >100,000 may have falsely elevated Potassium levels. ??For accurate Potassium quantification in these patients send serum separator tube (gold top) for subsequent determinations. ??Contact the Clinical Chemistry Laboratory if there are any questions. Chloride 102 98 - 107 mmol/L [facility] Carbon Dioxide 26 22 - 31 mmol/L [facility] Anion Gap 14 5 - 15 mmol/L [facility] Calcium 9.7 8.5 - 10.5 mg/dL [facility] Est Glomerular Filtration Rate >60 >=60 [facility] Comment: [...] the following links into your internet browser. [email or web address] Blood specimen (specimen) 08/18/2016 4:50 PM EST 08/18/2016 5:03 PM EST Narrative Resulting Agency Comment Spec In Lab Alirio Esparza MD CHEMISTRY ORDERABLE S Performing Organization Address City/State/[facility] Co de Phone Number [facility] [place] [place] [address] documented in this encounter Visit Diagnoses Diagnosis Aortic valve stenosis, unspecified etiology documented in this encounter Care Teams Embryology Teacher Relationship Specialty Start Date End Date Deborah Quiorga, FABRIC AND ACCESSORIES ESTIMATOR PCP - General Family Medicine 03/24/16 02/04/23 documented as of this encounter
--- OUTSIDE RECORDS SUMMARY | 2024-03-14 14:11 | XMS_ITS | Encounter Summary ---
Author Organization [facility] [address] Care Team Providers Care Laborer Poultry Hatchery Name Role Phone Junaid Deborah Shields APRN Primary Care Provider [phone] Encounter Details Date Type Department Care Team (Latest Contact Info) Description 05/19/2016 11:20 AM EDT Laboratory [place] [phone] Nonrheumatic aortic valve stenosis Social History Tobacco [...] 4:15 PM EDT Office Visit Dermatology at [place] [address] [place] [phone] Marek Bonilla MD [address] [place] [address] documented as of this encounter Procedures Procedure Name Priority Date/Time Associated Diagnosis Comments SCAN, PERIPHERAL BLOOD Routine 05/19/2016 11:32 AM EDT HEMOGRAM Routine 05/19/2016 11:32 AM EDT Nonrheumatic aortic valve stenosis DIFFERENTIAL, AUTOMATED Routine 05/19/2016 11:32 AM EDT Nonrheumatic aortic valve stenosis TYPE AND SCREEN, SDP (FUTURE SURGERY, [facility] SAME DAY PROGRAM ONLY) Routine 05/19/2016 11:32 [...] Scan, Peripheral Blood (05/19/2016 11:32 AM EDT) Pathologist [facility] Plat estimate Normal [facility] RBC Morphology Normal [facility] Blood specimen (specimen) 05/19/2016 11:32 AM EDT 05/19/2016 11:41 AM EDT Narrative Resulting Agency Comment Spec In Lab Alirio Esparza MD HEMATOLOGY ORDERABL ES [facility] [place] [address] * (ABNORMAL) Differential, Automated (05/19/2016 11:32 AM EDT) [facility] Neutrophil % 25.9 % [facility] Neutrophil Absolute 0.42(Crit ical) 1.70 - 6.10 x10(3)/mc L [facility] Comment: This result has been called to DR ALIRIO ESPARZA by Alivia Ibarra on 05 19 2016 at 1228, and has been read back. Lymph % 59.9 % [facility] Lymphocytes Abs 1.0 0.9 - 3.2 x10(3)/mc L [facility] Monocyte % 13.0 % [facility] Monocyte Abs 0.2(L) 0.3 - 0.9 x10(3)/[facility] Eos % 0.6 % [facility] Eosinophils Abs 0.0 0.0 - 0.4 x10(3)/ L [facility] Basophil % 0.6 % [facility] Baso Absolute 0.0 0.0 - 0.1 x10(3)/[facility] Immature Gran % 0.00 % [facility] Comment: Immature granulocytes(IG's)percentage and absolute count will include metamyelocytes, myelocytes, and promyelocytes. Blood smears from CBCs yielding IG's will be scanned manually for concordance. If this scan disagrees with the automated IG or if promyelocytes are noted, a manual differential will be performed. Immature Gran Absolute 0.00 0.00 - 0.04 x10(3)/[facility] Blood specimen (specimen) 05/19/2016 11:32 AM EDT 05/19/2016 11:41 AM EDT Narrative Resulting Agency Comment Spec In Lab Alirio Esparza MD HEMATOLOGY ORDERABL ES [facility] [place] [address] * (ABNORMAL) Hemogram (05/19/2016 11:32 AM EDT) White Blood Cell 1.6(Criti gabrielle) 4.0 - 9.5 x10(3)/ L [facility] Comment: This result has been called to DR ALIRIO ESPARZA by Alivia Ibarra on 05 19 2016 at 1228, and has been read back. Red Blood Cell 3.96(L) 4.00 - 5.21 x10(6)/mc L [facility] Hemoglobin 12.5 11.7 - 15.5 gm/dL [facility] Hematocrit 37.9 35.7 - 45.8 % [facility] Mean Cell Volume 95.7(H) 82.6 - 94.4 fL [facility] Mean Cell Hemoglobin 31.6 27.1 - 32.0 pg [facility] Mean Cell Hemoglobin Concentration 33.0 31.7 - 35.0 gm/dL [facility] Platelet 227 145 - 357 x10(3)/mc L [facility] RDW Standard Deviation 40.5 37.0 - 46.0 fL [facility] RDW coefficient of variation 11.5 11.5 - 14.1 % [facility] Mean Platelet Volume 8.4 7.6 - 12.9 fL [facility] NRBC% auto 0.0 % [facility] NRBC Absolute 0.000 0.000 - 0.000 x10(3)/mc L [facility] Blood specimen (specimen) 05/19/2016 11:32 AM EDT 05/19/2016 11:41 AM EDT Narrative Resulting Agency Comment Spec In Lab Alirio Esparza MD HEMATOLOGY ORDERABL ES Performing Organization Address City/State/[facility] Co de Phone Number [facility] [place] [address] * Antibody screen (05/19/2016 11:32 AM EDT) Ab Screen Interp Negative [facility] Expires at [id number] on: 07/03/2016 [facility] Comment: Corrected from 06/11/16 12:00 [Unknown] on 06/09/16 05:51 by Bethanie Tomlinson I.. Corrected from 07/03/16 12:00 [Unknown] on 05/21/16 06:00 by Shelia Barrera Blood specimen (specimen) 05/19/2016 11:32 AM EDT 05/19/2016 11:35 AM EDT Narrative Resulting Agency Comment Spec In Lab Alirio Esparza MD BLOOD BANK LAB ORDSylvia ALEJO [facility] [place] [address] * ABO/Rh Typing (05/19/2016 11:32 AM EDT) ABORH Type B Pos [facility] Blood specimen (specimen) 05/19/2016 11:32 AM EDT 05/19/2016 11:35 AM EDT Narrative Resulting Agency Comment Spec In Lab Alirio Esparza MD BLOOD BANK LAB BETH ALEJO Performing Organization Address City/[facility]/ZIP Co de Phone Number [facility] [place] [address] * Basic Metabolic Panel (non-fasting) (05/19/2016 11:32 AM EDT) Pathologist [facility] Glucose 86 65 - 199 mg/dL [facility] Comment:Diabetes: >=200 mg/d L plus symptoms Blood Urea Nitrogen 13 8 - 18 mg/dL [facility] Creatinine 0.95 0.70 - 1.20 mg/dL [facility] Comment: Please note that the pediatric reference intervals supplied above were not validated at [facility]. Results from pediatric patients should be interpreted in conjunction to the patient's age, height and muscle mass. Sodium 140 135 - 145 mmol/L [facility] [...] questions. Chloride 101 98 - 107 mmol/L [facility] Carbon Dioxide 27 22 - 31 mmol/L [facility] Anion Gap 12 5 - 15 mmol/L [facility] Calcium 10.1 8.5 - 10.5 mg/dL [facility] Est Glomerular Filtration Rate 60 >=60 [facility] Comment: [...] the following links into your internet browser. [email or web address] Blood specimen (specimen) 05/19/2016 11:32 AM EDT 05/19/2016 11:41 AM EDT Narrative Resulting Agency Comment Spec In Lab Alirio Esparza MD CHEMISTRY ORDERABLE S [facility] [place] [id number] documented in this encounter Visit Diagnoses Diagnosis Nonrheumatic aortic valve stenosis Aortic valve disorders documented in this encounter Care Teams Laborer Poultry Hatchery Relationship Specialty Start Date End Date Deborah Quiroga APRN PCP - General Family Medicine 03/24/16 02/04/23 documented as of this encounter
--- OUTSIDE RECORDS SUMMARY | 2024-03-14 14:11 | XMS_ITS | Encounter Summary ---
Author [place] [address] Care Team Providers Care Qa Software Tester Name Role Phone Jerel Sofia Garcia APRN Primary Care Provider [phone] Encounter Details Date Type Department Care Team (Late st Contact Info) Description 11/12/2014 8:10 AM EDT - 11/12/2014 11:59 PM EDT Hospital [place] [phone] CLINIC, DR ABE Burrell, Antelmo Porter MD [address] [place] [address] Discharge Disposition: Home Social History Tobacco Use [...] PM EDT Office Visit Dermatology at [place] [address] [place] [address] aMrek Bonilla MD [address], [place] [address] documented as of this encounter Procedures Procedure [...] mLs documented in this encounter Care Teams Qa Software Tester Relationship Specialty Start Date End Date Sofia Beltrán APRN [address] [place] [address] PCP - General 11/12/14 03/23/16 documented as of this encounter
--- OUTSIDE RECORDS SUMMARY | 2024-03-14 14:11 | XMS_ITS | Encounter Summary ---
Author Organization [facility] Address [facility] [place] [address] Care Team Providers Care Physical Therapist Assistant Name Role Phone Ashley Quirogan Cornelius ANURAG Primary Care Provider [phone] Encounter Details Date Type Department Care Team (Late st Contact Info) Description 08/11/2016 Telephone Hematology [place] [phone] Markel Borjas MD [facility] [place] [address] Social History Tobacco Use Types Packs/Day Years [...] EDT Office Visit Dermatology at [place] [address] [place] [address] Marek Bonilla MD [address], [place] [address] documented as of this encounter Visit Diagnoses Not on filedocumented in this encounter Care Teams Physical Therapist Assistant Relationship Specialty Start Date End Date Deborah Quiroga APRN PCP - General Family Medicine 03/24/16 02/04/23 documented as of this encounter
--- OUTSIDE RECORDS SUMMARY | 2024-03-14 14:11 | XMS_ITS | Encounter Summary ---
[place] [address] Care Team Providers Care Residential Service Technician Name Role Phone Deborah Quiroga APRN Primary Care Provider [phone] Encounter Details Date Type Department Care Team (Late st Contact Info) Description 09/17/2016 External Results Hematology [place] [address] Alexandrea Greenwood RN Neutropenia, unspecified type Social [...] 4:15 PM EDT Office Visit Dermatology at [place] [address] [place] [address] Marek Bonilla MD [address], [place] [address] documented as of this encounter Procedures Procedure [...] type documented in this encounter Care Teams Residential Service Technician Relationship Specialty Start Date End Date Deborah Quiroga, CALCINE FURNACE TENDER PCP - General Family Medicine 03/24/16 02/04/23 documented as of this encounter
--- OUTSIDE RECORDS SUMMARY | 2024-03-14 14:11 | XMS_ITS | Encounter Summary ---
[place] [address] Care Team Providers Care Rug Dyer Name Role Phone Deborah Quiroga ANURAG Primary Care Provider [phone] Reason for Visit * Reason Onset Date Comments Pre Procedure Call 06/18/2016 Encounter Details Date Type Department Care Team (Late st Contact Info) Description 06/18/2016 Telephone Hematology [place] [address] Alexandrea Greenwood RN Pre Procedure Call Social [...] 4:15 PM EDT Office Visit Dermatology at [place] [address] [place] [address] Marek Bonilla MD [address], [place] [address] documented as of this encounter Visit Diagnoses Not on filedocumented in this encounter Care Teams Rug Dyer Relationship Specialty Start Date End Date Deborah Quiroga APRN PCP - General Family Medicine 03/24/16 02/04/23 documented as of this encounter
--- OUTSIDE RECORDS SUMMARY | 2024-03-14 14:11 | XMS_ITS | Encounter Summary ---
[place] [address] Care Team Providers Care Javascript Developer Name Role Phone Junaid, Deborah Shields APRN Primary Care Provider [phone] Reason for Visit * Auth/Cert Specialty Diagnoses / Procedures Referred By Crispin t Referred To Contact Diagnoses Aortic stenosis Procedures PRO REPLACE AORT VALV, PROSTH VALV @REPLACE AORTIC VALVE, OPEN, W\CPB, W\PROSTHETIC VALVE (WRVU 41.32) Referral ID Status Reason Start Date Expiration Date Visits Re quested Visits Authorized [id number] 1 1 Encounter Details Date Type Department Care Team (Late st Contact Info) Description 09/21/2016 7:25 AM EST Anesthesia [place] [address] Luis Enrique Quarles MD [facility] [place] [address] Henrik Cooper MD [facility] [place] [address] Anesthesia Record Procedure Summary Procedure Name Responsible [...] 0819 Sternotomy 0844 CV Bypass init 1009 Super[address] Yard 1014 An Clamp Remove 1031 CP Bypass [...] Tube 09/21/16 (#28 angled chest tube to [place]: left: pericardial); Left; 09/22/16; 1119 09/21/16 0000 by Toshia Alejandre RN 09/22/16 1119 by Vero Bonilla RN Chest Tube 09/21/16 (#28 straig ht chest tube to [place]; right: mediastinal'); Right; mediastinum; 09/22/16; 1118 09/21/16 0000 by Toshia Alejandre RN 09/22/16 1118 by Vero Bonilla RN (RETIRED) Peripheral IV Line - Single Lumen 09/21/16; 0648; metacarpal vein (top of hand), left; [id number] catheter system; 20 gauge; valdo Arteaga; 09/23/16; [...] Cooper MD - 09/21/2016 6:50 PM EST [place] Department of Anesthesiology Post-procedure Note Patient: Purnima Thacker Procedure Summary Date Anesthesia Start Anesthesia Stop Room / Location 09/21/16 07 1152 [facility] OR 16 / [facility] MAIN OR Procedure Diagnosis Surgeon Responsible Provider @REPLACE AORTIC VALVE, OPEN, W\CPB, W\PROSTHETIC VALVE (WRVU 41.32) (N/A Chest); @AORTOPLASTY FOR SUPRAVALVULAR STENOSIS (WRVU 29.33) (N/A Chest) () Alirio Francisco MD Clark, Jeffrey A, MD All Anesthesia Providers: Anesthesiologist: Luis Enrique Quarles MD Chronic Condition Nurse: Henrik Cooper MD Last (1hr) Vitals: BP Temp 36.1 ??C (97 ??F) (09/21/16 1800) Pulse 79 (09/21/16 1800) Resp 11 (09/21/16 1800) SpO2 98 % (09/21/16 1800) Patient Location: [facility] Level of Consciousness: Sedated (Pharmacologic/Intentional) Pain [...] 4:15 PM EDT Office Visit Dermatology at [place] [address] [place] [address] Marek Bonilla MD [address] [place] [address] RD, [address] [place] [address] documented as of this encounter Visit Diagnoses [...] mg documented in this encounter Care Teams Javascript Developer Relationship Specialty Start Date End Date Deborah Quiroga, SUPERVISOR RECORD PRESS PCP - General Family Medicine 03/24/16 02/04/23 documented as of this encounter
--- OUTSIDE RECORDS SUMMARY | 2024-03-14 14:11 | XMS_ITS | Encounter Summary ---
[place] [address] Care Team Providers Care Showroom Consultant Name Role Phone Ashley Quirogan Cornelius ANURAG Primary Care Provider [phone] Reason for Visit * Reason Onset Date Comments Medical Care Coordination 09/14/2016 Encounter Details Date Type Department Care Team (Late st Contact Info) Description 09/14/2016 Telephone Hematology [place] [address] Alexandrea Greenwood RN Medical Care Coordination Social [...] 09/14/2016 9:10 AM EST Message received from tar kettle runner: Injection/Infusion Referral Call placed to [facility] Infusion Room Spoke charis Bragg. Services to be provided for pt are: Miles 09/16/16 [facility] confirmed they would provide services to pt and would contact with appointment time. Pt aware to expect the phone call ??orders faxed to [phone]). documented in this encounter Plan of Treatment Upcoming Encounters Date Type Department Care Team (Late st Contact Info) Description 03/01/2025 4:15 PM EDT Office Visit Dermatology at [place] [address] [place] [address] Marek Bonilla MD [address], [place] [address] documented as of this encounter Visit Diagnoses Not on filedocumented in this encounter Care Teams Showroom Consultant Relationship Specialty Start Date End Date Deborah Quiroga APRN PCP - General Family Medicine 03/24/16 02/04/23 documented as of this encounter
--- OUTSIDE RECORDS SUMMARY | 2024-03-14 14:11 | XMS_ITS | Encounter Summary ---
Author Organization [facility] Address [facility] [place] [address] Care Team Providers Care Swager Operator Name Role Phone Ashley Quirogazac Shields APRN Primary Care Provider [phone] Encounter Details Date Type Department Care Team (Late st Contact Info) Description 05/19/2016 10:00 AM EDT Office [place] [address] Alirio Esparza MD [facility] [facility] DR [place] [address] Nonrheumatic aortic valve stenosis Social History Tobacco [...] EDT Office Visit Dermatology at [place] [address] [place] [address] Marek Bonilla MD [address] [place] [address] documented as of this encounter Results * [...] (Bezet) 448 ms MUSE SYSTEM Calculated P Greenwood 37 degrees MUSE SYSTEM Calculated R Greenwood 31 degrees MUSE SYSTEM Calculated T Greenwood 25 degrees MUSE SYSTEM INTERPRETATION Normal sinus rhythm Normal ECG No previous ECGs available Confirmed by MD Becca, Deangelo ([id number]) on 05/19/2016 5:23:33 PM MUSE SYSTEM 05/19/2016 11:4 3 AM EDT 05/19/2016 5:23 PM EDT Alirio Esparza MD ECG ORDERABLES MUSE SYSTEM * Basic Metabolic Panel (non-fasting) (05/19/2016 11:32 AM EDT) Glucose 86 65 - 199 mg/dL [facility] Comment:Diabetes: >=200 mg/d L plus symptoms Blood Urea Nitrogen 13 8 - 18 mg/dL [facility] Creatinine 0.95 0.70 - 1.20 mg/dL [facility] Comment: Please note that the pediatric reference intervals supplied above were not validated at [facility]. Results from pediatric patients should be interpreted in conjunction to the patient's age, height and muscle mass. Sodium 140 135 - 145 mmol/L [facility] Potassium 4.3 3.5 - 5.0 mmol/L [facility] Comment: Please note: ??Patients with WBC >100,000 may have falsely elevated Potassium levels. ??For accurate Potassium quantification in these patients send serum separator tube (gold top) for subsequent determinations. ??Contact the Clinical Chemistry Laboratory if there are any questions. Chloride 101 98 - 107 mmol/L [facility] Carbon Dioxide 27 22 - 31 mmol/L [facility] Anion Gap 12 5 - 15 mmol/L [facility] Calcium 10.1 8.5 - 10.5 mg/dL [facility] Est Glomerular Filtration Rate 60 >=60 [facility] Comment: This [...] the following links into your internet browser. [email or web address] Blood specimen (specimen) 05/19/2016 11:32 AM EDT 05/19/2016 11:41 AM EDT Narrative Resulting Agency Comment Spec In Lab Alirio Esparza MD CHEMISTRY ORDERABLE S Performing Organization Address City/State/[facility] Co de Phone Number [facility] [place] [phone] documented in this encounter Visit Diagnoses Diagnosis Nonrheumatic aortic valve stenosis Aortic valve disorders Nonrheumatic aortic valve stenosis Aortic valve disorders documented in this encounter Care Teams Swager Operator Relationship Specialty Start Date End Date Deborah Quiroga APRN PCP - General Family Medicine 03/24/16 02/04/23 documented as of this encounter
--- OUTSIDE RECORDS SUMMARY | 2024-03-14 14:11 | XMS_ITS | Encounter Summary ---
[place] [address] Care Team Providers Care Personal Coach Name Role Phone Deborah Quiroga APRN Primary Care Provider [phone] Reason for Visit * Reason Onset Date Comments Prior Authorization 09/11/2016 Neulasta Encounter Details Date Type Department Care Team (Late st Contact Info) Description 09/11/2016 Telephone [place] [address] Monica Wick Prior Authorization (Neulasta ) Social [...] AM EST Prior Auth for Neulasta (Approved) [facility] is a covered facility under the members plan. ID# [id number] Call placed to [phone] Rationale: Can you please start a PA for this pt to receive as outpatient at [facility] on 09/16/16? 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 ??Her last ANC was 0.56 (or 560) on 08/04/16. ??This will need to be approved through her medical as out patient. J code for neulasta. ?? [id number]. Spoke w/ Anna Marie Call Reference [id number] Copay: $ Deductible is not met, patient will have out of pocket costs until deductible is met. documented in this encounter Plan of Treatment Upcoming Encounters Date Type Department Care Team (Late st Contact Info) Description 03/01/2025 4:15 PM EDT Office Visit Dermatology at [place] [address] [address] Marek Bonilla MD [address], [address] [place] [address] documented as of this encounter Visit Diagnoses Not on filedocumented in this encounter Care Teams Personal Coach Relationship Specialty Start Date End Date Deborah Quiroga APRN PCP - General Family Medicine 03/24/16 02/04/23 documented as of this encounter
--- OUTSIDE RECORDS SUMMARY | 2024-03-14 14:11 | XMS_ITS | Encounter Summary ---
Author Organization [facility] [place] [address] Care Team Providers Care Agriculture Manager Name Role Phone Deborah Quiroga APRN Primary Care Provider [phone] Encounter Details Date Type Department Care Team (Late st Contact Info) Description 06/09/2016 Orders Only Hematology [place] [address] Nitesh Pina Jr., MD [facility] [address] [place] [address] Cyclical neutropenia Social History Tobacco Use Types [...] 4:15 PM EDT Office Visit Dermatology at [place] [address] [place] [address] Marek Bonilla MD [address] [facility] [facility] DERMATOLOGY [place], [place] [phone] documented as of this encounter Results * Immunophenotyping Flow Cytometry (06/09/2016 4:53 PM EST) Immunophenotyping Flow See Comment [facility] Comment: When completed by the Pathologist, the Flow Cytometry Report ([id number]) will display under the Pathology Results section within [facility]. Specimen of unknown material (specimen) 06/09/2016 4:53 PM EST 06/09/2016 5:00 PM EST Narrative Resulting Agency Comment Spec In Lab Nitesh Pina Jr., MD HEMATOLOGY ORDERABLE S Performing Organization Address City/State/[facility] Co de Phone Number [facility] [place] [address] documented in this encounter Visit Diagnoses Diagnosis Cyclical neutropenia Cyclic neutropenia documented in this encounter Care Teams Agriculture Manager Relationship Specialty Start Date End Date Deborah Quiroga, DOUBLE CUTTER PCP - General Family Medicine 03/24/16 02/04/23 documented as of this encounter
--- OUTSIDE RECORDS SUMMARY | 2024-03-14 14:11 | XMS_ITS | Encounter Summary ---
[place] [address] Care Team Providers Care Resident Services Manager Name Role Phone Deborah Quiroga ANURAG Primary Care Provider [phone] Encounter Details Date Type Department Care Team (Late st Contact Info) Description 07/22/2016 External Results [place]ematology [place] [address] Alexandrea Greenwood RN Neutropenia, unspecified type Social [...] PM EDT Office Visit Dermatology at [place] [address] [place] [phone] Marek Bonilla MD [address], [place] [address] documented as of this encounter Procedures Procedure Name Priority Date/Time Associated Diagnosis Comments COPPER, SERUM Routine 07/20/2016 10:30 AM EST Neutropenia, unspecified type CMV PCR, QUANTITATIVE Routine 07/20/2016 10:30 AM EST Neutropenia, unspecified type MONONUCLEOSIS SCREEN ([facility] Routine 07/20/2016 10:30 AM EST Neutropenia, unspecified type CBC (WITH DIFF) Routine 07/20/2016 10:30 AM EST Neutropenia, unspecified type documented in this encounter Results * Copper, serum (07/20/2016 10:30 AM EST) Copper (NOVEMBER) 1.09 0.75 - 1.45 EXTERNAL LAB Blood specimen (specimen) 07/20/2016 10:30 AM EST Markel Borjas MD LAB SEND OUT ORDER JODIE Performing Organization Address [facility] Co de Phone Number EXTERNAL LAB * CMV PCR, Quantitative (07/20/2016 10:30 AM EST) CMV PCR,Quantitati ve undetected EXTERNAL LAB Blood specimen (specimen) 07/20/2016 10:30 AM EST Markel Borjas MD MOLECULAR ORDERABL ES Performing Organization Address [facility] Co de Phone Number EXTERNAL LAB * Mononucleosis Screen (07/20/2016 10:30 AM EST) Mononucleosis Screen neg neg - neg EXTERNAL LAB Blood specimen (specimen) 07/20/2016 10:30 AM EST Markel Borjas MD IMMUNOLOGY ORDERAB LES Performing Organization Address [facility] Co de Phone [...] type documented in this encounter Care Teams Resident Services Manager Relationship Specialty Start Date End Date Deborah Quiroga, SOFT METALS HAND ENGRAVER PCP - General Family Medicine 03/24/16 02/04/23 documented as of this encounter
--- OUTSIDE RECORDS SUMMARY | 2024-03-14 14:11 | XMS_ITS | Encounter Summary ---
Author Organization [facility] [place] [address] Care Team Providers Care Manager Utilization Management Name Role Phone Deborah Quiroga APRN Primary Care Provider [phone] Encounter Details Date Type Department Care Team (Late st Contact Info) Description 08/18/2016 4:20 PM EST Clinical Support [place] [phone] Social History Tobacco Use Types Packs/Day Years [...] 4:15 PM EDT Office Visit Dermatology at [place] [address] [place] [address] Marek Bonilla MD [address], [place] [address] documented as of this encounter Visit Diagnoses Not on filedocumented in this encounter Care Teams Manager Utilization Management Relationship Specialty Start Date End Date Deborah Quiroga APRN PCP - General Family Medicine 03/24/16 02/04/23 documented as of this encounter
--- OUTSIDE RECORDS SUMMARY | 2024-03-14 14:11 | XMS_ITS | Encounter Summary ---
Author Organization [facility] Address [facility] [place] [address] Care Team Providers Care Ride Mechanic Name Role Phone Junaid Deborah Shields APRN Primary Care Provider [phone] Encounter Details Date Type Department Care Team (Latest Contact Info) Description 05/19/2016 11:00 AM EDT Clinical Support [place] [phone] Nonrheumatic aortic valve stenosis Social History Tobacco [...] 4:15 PM EDT Office Visit Dermatology at [place] [address] [place] [address] Marek Bonilla MD [address], [place] [address] documented as of this encounter Procedures Procedure [...] (Bezet) 448 ms MUSE SYSTEM Calculated [place] 37 degrees MUSE SYSTEM Calculated [place] 31 degrees MUSE SYSTEM Calculated [place] 25 degrees MUSE SYSTEM INTERPRETATION Normal sinus rhythm Normal ECG No previous ECGs available Confirmed by MD Becca, Deangelo ([id number]) on 05/19/2016 5:23:33 PM MUSE SYSTEM 05/19/2016 11:4 3 AM EDT 05/19/2016 5:23 PM EDT Alirio Esparza MD ECG ORDERABLES MUSE SYSTEM documented in this encounter Visit Diagnoses Diagnosis Nonrheumatic aortic valve stenosis Aortic valve disorders documented in this encounter Care Teams Ride Mechanic Relationship Specialty Start Date End Date Deborah Quiroga APRN PCP - General Family Medicine 03/24/16 02/04/23 documented as of this encounter
--- OUTSIDE RECORDS SUMMARY | 2024-03-14 14:11 | XMS_ITS | Encounter Summary ---
Author Organization [facility] Address [facility] [place] [address] Care Team Providers Care Flatwork Folder Name Role Phone Junaid Deborahzac Shields APRN Primary Care Provider [phone] Reason for Visit * Reason Comments Schedule Office Case * Consultation (Routine) - Closed Specialty Diagnoses / Procedures Referred By Contac t Referred To Contact Hematology and Oncology Diagnoses Leukopenia Neutropenia LEUKOPENIA W/NEUTROPENIA Procedures TC PEGFILGRASTIM, 6MG, INJECTION LEUKOPENIA W/NEUTROPENIA Alirio Esparza MD [facility] [place] [address] Mario Alberto Ramos Jr., MD [facility] HEMAT[place] [address] Referral ID Status Reason Start Date Expiration Date V isits Requested Visits Authorized [id number] Closed Consult, Test & Treat 07/17/2016 07/17/2017 1 1 Encounter Details Date Type Department Care Team (Late st Contact Info) Description 06/09/2016 3:00 PM EST Office Visit Hematology [place] [address] Mario Alberto Ramos Jr., MD [facility] HEMATOLOG[place] [address] Cyclical neutropenia Social History Tobacco Use Types [...] 06/09/2016 3:00 PM EST Hematology Outpatient Clinic [facility] Hematology Outpatient Consult Note CC: [...] Unknown See Comment Flow Cytometry Report Unknown [id number] ... HematoPathology: Flow Cytometry DIAGNOSIS 1. No [...] PM EDT Office Visit Dermatology at [address] [place] [phone] Marek Bonilla MD [address], [place] [address] documented as of this encounter Procedures Procedure [...] (06/09/2016 4:53 PM EST) Flow Cytometry Report [id number] ?Location: The signing pathologist has (i) examined [...] by the Clinical Flow Cytometry Laboratory at [facility]. It has not been cleared or approved [...] high complexity clinical laboratory testing. SPECIMEN PROCESSING [id number] Cells for immunophenotypic analysis were derived from peripheral blood. ??CD45 vs side scatter gating was utilized to identify a lymphoid analysis region that comprises approximately 49-51% of all cells. The following markers were assessed: CD2, CD3, CD4, CD5, CD7, CD8, CD10, CD16, CD19, CD45, CD56, CD57, kappa light chain, and lambda light chain. CLINICAL INFORMATION 60 yo female with neutropenia. LGL panel requested. [facility] 06/09/2016 4:53 PM EST Mario Alberto Ramos Jr., MD PATHOLOGY/CYTOLOGY O RDERABLES Performing Organization Address [facility]/[place] [address] * Scan, Peripheral Blood (06/09/2016 4:53 PM EST) Plat estimate Normal [facility] RBC Morphology Normal [facility] Blood specimen (specimen) 06/09/2016 4:53 PM EST 06/09/2016 5:00 PM EST Narrative Resulting Agency Comment Spec In Lab Mario Alberto Ramos Jr., MD HEMATOLOGY ORDERABLE S Performing Organization Address City/[facility] Co de Phone Number [facility] [place] [address] * (ABNORMAL) Differential, Automated (06/09/2016 4:53 PM EST) Pathologist [facility] Neutrophil % 27.7 % [facility] Neutrophil Absolute 0.48(Crit ical) 1.70 - 6.10 x10(3)/mc L [facility] Comment: Matches Previous Results.. This result has been called to NOT CALLED by Jesusita Argueta on 06 09 2016 at 1817, and has not been read back. MATCHES PREVIOUS RESULTS Lymph % 57.2 % [facility] Lymphocytes Abs 1.0 0.9 - 3.2 x10(3)/mc L [facility] Monocyte % 13.3 % [facility] Monocyte Abs 0.2(L) 0.3 - 0.9 x10(3)/mc L [facility] Eos % 0.6 % [facility] Eosinophils Abs 0.0 0.0 - 0.4 x10(3)/mc L [facility] Basophil % 1.2 % [facility] Baso Absolute 0.0 0.0 - 0.1 x10(3)/mc L [facility] Immature Gran % 0.00 % [facility] Comment: Immature granulocytes(IG's)percentage and absolute count will include metamyelocytes, myelocytes, and promyelocytes. Blood smears from CBCs yielding IG's will be scanned manually for concordance. If this scan disagrees with the automated IG or if promyelocytes are noted, a manual differential will be performed. Immature Gran Absolute 0.00 0.00 - 0.04 x10(3)/mc L [facility] Blood specimen (specimen) 06/09/2016 4:53 PM EST 06/09/2016 5:00 PM EST Narrative Resulting Agency Comment Spec In Lab Mario Alberto Ramos Jr., MD HEMATOLOGY ORDERABLE S Performing Organization Address City/State/[facility] Co de Phone Number [facility] [place] [address] * (ABNORMAL) Hemogram (06/09/2016 4:53 PM EST) White Blood Cell 1.7(Criti gabrielle) 4.0 - 9.5 x10(3)/ L [facility] Red Blood Cell 3.92(L) 4.00 - 5.21 x10(6)/mc L [facility] Hemoglobin 12.4 11.7 - 15.5 gm/dL [facility] Hematocrit 36.7 35.7 - 45.8 % [facility] Mean Cell Volume 93.6 82.6 - 94.4 fL [facility] Mean Cell Hemoglobin 31.6 27.1 - 32.0 pg [facility] Mean Cell Hemoglobin Concentration 33.8 31.7 - 35.0 gm/dL [facility] Platelet 234 145 - 357 x10(3)/mc L [facility] RDW Standard Deviation 39.8 37.0 - 46.0 fL [facility] RDW coefficient of variation 11.8 11.5 - 14.1 % [facility] Mean Platelet Volume 8.6 7.6 - 12.9 fL [facility] NRBC% auto 0.0 % [facility] NRBC Absolute 0.000 0.000 - 0.000 x10(3)/mc L [facility] Blood specimen (specimen) 06/09/2016 4:53 PM EST 06/09/2016 5:00 PM EST Narrative Resulting Agency Comment Spec In Lab Mario Alberto Ramos Jr., MD HEMATOLOGY ORDERABLE S Performing Organization Address [facility]/ZIP Co de Phone Number [facility] [place] [address] * Immunophenotyping Flow Cytometry (06/09/2016 4:53 PM EST) Immunophenotyping Flow See Comment [facility] Comment: When completed by the Pathologist, the Flow Cytometry Report ([id number]) will display under the Pathology Results section within [facility]. Specimen of unknown material (specimen) 06/09/2016 4:53 PM EST 06/09/2016 5:00 PM EST Narrative Resulting Agency Comment Spec In Lab Mario Alberto Ramos Jr., MD HEMATOLOGY ORDERABLE S Performing Organization Address City/[facility]/ZIP Co de Phone Number [facility] [place] [address] documented in this encounter Visit Diagnoses Diagnosis Cyclical neutropenia Cyclic neutropenia documented in this encounter Care Teams Flatwork Folder Relationship Specialty Start Date End Date Deborah Quiroga APRN PCP - General Family Medicine 03/24/16 02/04/23 documented as of this encounter
--- OUTSIDE RECORDS SUMMARY | 2024-03-14 14:11 | XMS_ITS | Encounter Summary ---
[place] [address] Care Team Providers Care Bearing Ring Assembler Name Role Phone Deborah Quiroga APRN Primary Care Provider [phone] Encounter Details Date Type Department Care Team (Late st Contact Info) Description 07/31/2016 Orders Only Hematology [place] [address] Alexandrea Greenwood RN Neutropenia, unspecified type Social [...] 4:15 PM EDT Office Visit Dermatology at [place] [address] [place] [phone] Marek Bonilla MD [address] [place] [address] documented as of this encounter Results * [...] type documented in this encounter Care Teams Bearing Ring Assembler Relationship Specialty Start Date End Date Deborah Quiroga, FOUNDER CEO & PRESIDENT PCP - General Family Medicine 03/24/16 02/04/23 documented as of this encounter
--- OUTSIDE RECORDS SUMMARY | 2024-03-14 14:11 | XMS_ITS | Encounter Summary ---
Author Organization [facility] Address [facility] [place] [address] Care Team Providers Care Paver Name Role Phone JunaidAshley hargrovezac Shields APRN Primary Care Provider [phone] Reason for Visit * Auth/Cert Specialty Diagnoses / Procedures Referred By Crispin t Referred To Contact Diagnoses AVS Procedures CARDIAC CATHETERIZATION Referral ID Status Reason Start Date Expiration Date Visits Re quested Visits Authorized [id number] 1 1 Encounter Details Date Type Department Care Team (Late st Contact Info) Description 06/03/2016 6:32 AM EDT - 06/03/2016 1:10 PM EDT Hospital Encounter [place] [phone] Anjum Oliveros II, MD [facility] [place] [address] Mario Alberto Escobedo MD [facility] [place] [address] Aortic valve stenosis, unspecified etiology; Nonrheumatic aortic [...] by your doctor, do not take any cwtr-lko-zjlxrjf medicinesor herbal preparations without first discussing this with your doctor or pharmacist. There is the possibility of side effects and interactions when these are combined. Follow Up Care Who to call with questions or problems If there are any questions or problems that you think might be related to your cardiac cath or angioplasty, contact the dish washer commercial collections driver by calling [facility] at . * Patient Instructions* Felicia Corrigan - 06/03/2016 9:33 AM EDT Cardiology Instructions Call your doctor if: Chest pain, dyspnea, pain or swelling in legs occurs. If you have non-emergent questions between now and the time of your follow up appointments: -During 8am-5pm Wednesday through Wednesday call [phone] to speak with a nurse in the cardiology clinic -All other times call [phone] and ask to speak to the soil and plant scientist commercial collections driver. MEDICATIONS - restart your spironolactone, discontinue prior [...] Appointments: Primary care provider: Cardiology: Deborah Hahn, MANAGER PARK [phone] Follow up as planned or as needed. Dr. Esparza [phone] Other follow-up appointment: Hematology - Dr. Mario [...] 4:15 PM EDT Office Visit Dermatology at [place] [address] [place] [address] Marek Bonilla MD [address] [facility] [address] [place] DERMATOLOGY [place], [place] [phone] documented as of this encounter Procedures Procedure [...] Green Tube HOLD (06/03/2016 11:45 AM EDT) [facility] Green Hold Sample in lab. [facility] Blood specimen (specimen) Venous Draw / Unknown 06/03/2016 11:45 AM EDT 06/03/2016 12:12 PM EDT Mario Alberto Escobedo MD CHEMISTRY ORDERABLES Performing Organization Address [facility] Co de Phone Number [facility] [place] [place] [address] * Methylmalonic acid, serum (06/03/2016 11:45 AM EDT) [facility] Methylmalonic Acid (NOVEMBER) 0.21 <=0.40 nmol/mL [facility] Comment: Test Performed by: [place] [address] Assembler Surgical Garment: Raymond Chaudhry II, M.D., Ph.D. Blood specimen (specimen) 06/03/2016 11:45 AM EDT 06/03/2016 1:57 PM EDT Narrative Resulting Agency Comment Spec In Lab Mario Alberto Escobedo MD LAB SEND OUT ORDERAB LES Performing Organization Address [facility] Co de Phone Number [facility] [place] [address] * Granulocyte Antibody (06/03/2016 11:45 AM EDT) [facility] Granulocyte Ab (NOVEMBER) Negative Not Applicable [facility] Comment: ADDITIONAL INFORMATION Method: Immunofluorescent Assay Performing Laboratory CLIA# [id number] This test was developed and its performance characteristics determined by [facility] in a manner consistent with CLIA requirements. This test has not been cleared or approved by the U.S. Food and Drug Administration. Test Performed by: [facility] - [address] [address] Assembler Surgical Garment: Raymond Chaudhry II, M.D., Ph.D. Blood specimen (specimen) 06/03/2016 11:45 AM EDT 06/03/2016 1:57 PM EDT Narrative Resulting Agency Comment Spec In Lab Mario Alberto Escobedo MD LAB SEND OUT ORDERAB LES Performing Organization Address [facility] Co de Phone Number [facility] [place] [address] * TSH (06/03/2016 11:45 AM EDT) Thyroid Stimulating Hormone 2.18 0.27 - 4.20 mcIU/mL [facility] Blood specimen (specimen) 06/03/2016 11:45 AM EDT 06/03/2016 12:11 PM EDT Narrative Resulting Agency Comment Spec In Lab Mario Alberto Escobedo MD CHEMISTRY ORDERABLES Performing Organization Address [facility] Co de Phone Number [facility] [place] [address] * Homocysteine Total, Plasma (06/03/2016 11:45 AM EDT) Homocystine 9 <=15 mcmol/L [facility] Blood specimen (specimen) 06/03/2016 11:45 AM EDT 06/03/2016 12:11 PM EDT Narrative Resulting Agency Comment Spec In Lab Mario Alberto Escobedo MD CHEMISTRY ORDERABLES Performing Organization Address [facility] Co de Phone Number [facility] [place] [address] * Folate, serum (06/03/2016 11:45 AM EDT) Folate >20.0 4.8 - 24.2 ng/mL [facility] Blood specimen (specimen) 06/03/2016 11:45 AM EDT 06/03/2016 12:04 PM EDT Narrative Resulting Agency Comment Spec In Lab Mario Alberto Escobedo MD CHEMISTRY ORDERABLES Performing Organization Address City/[facility] Co de Phone Number [facility] [place] [address] * (ABNORMAL) Sedimentation rate (06/03/2016 11:45 AM EDT) Pathologist [facility] Sedimentation Rate Automated 41(H) 0 - 20 mm/hr [facility] Blood specimen (specimen) 06/03/2016 11:45 AM EDT 06/03/2016 12:04 PM EDT Narrative Resulting Agency Comment Spec In Lab Mario Alberto Escobedo MD HEMATOLOGY ORDERABLE S Performing Organization Address [facility] Co de Phone Number [facility] [place] [address] * Lactate Dehydrogenase (06/03/2016 11:45 AM EDT) Lactate Dehydrogenase 164 110 - 220 unit/L [facility] Blood specimen (specimen) 06/03/2016 11:45 AM EDT 06/03/2016 12:11 PM EDT Narrative Resulting Agency Comment Spec In Lab Mario Alberto Escobedo MD CHEMISTRY ORDERABLES Performing Organization Address [facility] Co de Phone Number [facility] [place] [address] * Comprehensive metabolic panel (non-fasting) (06/03/2016 11:45 AM EDT) Glucose 90 65 - 199 mg/dL [facility] Comment:Diabetes: >=200 mg/d L plus symptoms Blood Urea Nitrogen 11 8 - 18 mg/dL [facility] Creatinine 0.83 0.70 - 1.20 mg/dL [facility] Comment: Please note that the pediatric reference intervals supplied above were not validated at [facility]. Results [...] 107 mmol/L [facility] Carbon Dioxide 25 22 - 31 mmol/L [facility] Anion Gap 14 5 - 15 mmol/L [facility] Calcium 9.2 8.5 - 10.5 mg/dL [facility] Protein, Total 7.0 6.1 - 8.0 gm/dL [facility] Albumin 4.0 3.2 - 5.2 gm/dL [facility] Aspartate Aminotransferase 17 0 - 30 unit/L [facility] Alanine Aminotransferase 9 0 - 30 unit/L [facility] Alkaline Phosphatase 81 40 - 104 unit/L [facility] Bilirubin, Total 0.4 0.2 - 1.3 mg/dL [facility] Bilirubin, Direct 0.1 0.0 - 0.3 mg/dL [facility] Est Glomerular Filtration Rate >60 >=60 [facility] Comment: This [...] the following links into your internet browser. [email or web address] Blood specimen (specimen) 06/03/2016 11:45 AM EDT 06/03/2016 12:11 PM EDT Narrative Resulting Agency Comment Spec In Lab Mario Alberto Escobedo MD CHEMISTRY ORDERABLES [facility] [place] [place] [address] documented in this encounter Visit Diagnoses Diagnosis [...] Until Wed06/03/16 at 0917, Cath (Intra-Procedure), Routine 855 (Given - Provid er: Alirio Hernandez) iohexol [...] PIV insertion, Cath (Day of Procedure), Routine 06 (Given - Provid er: Alie Madrid, VALDO) midazolam (PF) (VERSED) 1 mg/mL multi-dose injection (CANCELED) ONCE PRN, Starting on Wed06/03/16 at 0853, Until Wed06/03/16 at 0917, Cath (Intra-Procedure), Routine 0853 (Given - Provid er: Alirio Hernandez) verapamil (ISOPTIN) injection (CANCELED) ONCE PRN, Starting on Wed06/03/16 at 0853, Until Wed06/03/16 at 0917, Administer over 2 Minutes, Cath (Intra-Procedure) 0853 (Given - Provid er: Alirio Hernandez) documented in this encounter Care Teams Paver Relationship Specialty Start Date End Date Deborah Quiroga, MANAGER PARK PCP - General Family Medicine 03/24/16 02/04/23 documented as of this encounter
--- OUTSIDE RECORDS SUMMARY | 2024-03-14 14:11 | XMS_ITS | Encounter Summary ---
Author Organization [facility] Address [facility] [place] [address] Care Team Providers Care Brake Shoe Rebuilder Name Role Phone Deborah Quiroga ANURAG Primary Care Provider [phone] Encounter Details Date Type Department Care Team (Late st Contact Info) Description 05/22/2016 Orders Only Cardiology at [address] [address] Chele Randolph PA [facility] [place] [address] Aortic valve stenosis, unspecified etiology Social History [...] EDT Office Visit Dermatology at [place] [address] [facility] [place] [phone] Marek Bonilla MD [address], [place] [address] documented as of this encounter Procedures Procedure Name Priority Date/Time Associated Diagnosis Comments CARDIAC CATHETERIZATION Routine 06/03/20 16 9:13 AM EDT Aortic valve stenosis, unspecified etiology documented in this encounter Results * CARDIAC CATHETERIZATION (06/03/2016 9:13 AM EDT) Anatomical Region Laterality Modality Other Narrative 06/03/2016 10:13 AM EDT ?[facility] ? Cardiac Catheterization/Intervention Report ? Patient Name: Kirstie, Purnima M. ? Procedure Date: 06/03/2016 ? A #: [id number] ? Primary Physician: Nitesh Escobedo ? Case #: [id number] ? File Name: [id number] ? Catheterization Order Number: [id number] ? [facility] ? Final Report [place], [place] ? Patient Name: ? Purnima M. Kirstie ? ID#: ?[id number] ? : ?1955 ? Procedure Date: ? June 03, 2016 ? Case #: ? [id number] ? Room: ? 1 ? Case Physician: [...] no symptom, no angina (w/i 14 days). [place] ?Cardiovascular Society angina class was 0. This [...] Procedure Note Nitesh Escobedo MD - 09/21/2016 [facility] Cardiac Catheterization/Intervention Report Patient Name: Purnima Thacker Procedure Date: 06/03/2016 A #: [id number] Primary Physician: Nitesh Escobedo Case #: [id number] File Name: [id number] Catheterization Order Number: [id number] [facility] FinalReport [place], [place] Patient Name: Purnima Thacker ID#:[id number] :1955 Procedure Date: June 03, 2016 Case [...] with: no symptom, no angina (w/i 14 days).[place] [employer] Society angina class was 0. This [...] etiology documented in this encounter Care Teams Brake Shoe Rebuilder Relationship Specialty Start Date End Date Deborah Quiroga APRN PCP - General Family Medicine 03/24/16 02/04/23 documented as of this encounter
--- OUTSIDE RECORDS SUMMARY | 2024-03-14 14:11 | XMS_ITS | Encounter Summary ---
Author Organization [facility] Address [facility] [place] [address] Care Team Providers Care Geospatial Analyst Name Role Phone Deborah Quiroga APRN Primary Care Provider [phone] Encounter Details Date Type Department Care Team (Latest Contact Info) Description 05/19/2016 11:52 AM EDT - 05/19/2016 11:59 PM EDT Hospital Encounter XRay at [address] [place] [address] Alirio Esparza MD [facility] [place]OTH[place] [address] Nonrheumatic aortic valve stenosis Discharge Disposition: Home [...] 4:15 PM EDT Office Visit Dermatology at [place] [address] [place] [address] Marek Bonilla MD [address], [address] [place] [address] documented as of this encounter Procedures Procedure [...] disorders documented in this encounter Care Teams Geospatial Analyst Relationship Specialty Start Date End Date Deborah Quiroga, PREVENTION COORDINATOR PCP - General Family Medicine 03/24/16 02/04/23 documented as of this encounter
--- OUTSIDE RECORDS SUMMARY | 2024-03-14 14:11 | XMS_ITS | Encounter Summary ---
[place] [address] Care Team Providers Care Measurement Superintendent Name Role Phone Ashley Quirogan Cornelius ANURAG Primary Care Provider [phone] Reason for Visit * Reason Onset Date Comments Medication Management 09/14/2016 Encounter Details Date Type Department Care Team (Late st Contact Info) Description 09/14/2016 Telephone [place] [address] Alexandrea Greenwood, forest technology professor Management Social History Tobacco Use Types Packs/Day [...] 09/14/2016 9:12 AM EST Message received from paralegal secretary: Purnima called, asking for clarification on [...] 4:15 PM EDT Office Visit Dermatology at [place] [address] [facility] [place] [address] Marek Bonilla MD [address], [place] [address] documented as of this encounter Visit Diagnoses Not on filedocumented in this encounter Care Teams Measurement Superintendent Relationship Specialty Start Date End Date Deborah Quiroga APRN PCP - General Family Medicine 03/24/16 02/04/23 documented as of this encounter
--- OUTSIDE RECORDS SUMMARY | 2024-03-14 14:11 | XMS_ITS | Encounter Summary ---
Author Organization [facility] Address [facility] [place] [address] Care Team Providers Care Cafeteria Food Server Name Role Phone Deborah Quiroga APRN Primary Care Provider [phone] Encounter Details Date Type Department Care Team (Late st Contact Info) Description 08/18/2016 Orders [place] [address] Alirio Esparza MD [facility] [address] CARDIOTHORACIC [place] [address] Aortic valve stenosis, unspecified etiology Social History [...] 4:15 PM EDT Office Visit Dermatology at [place] [address] [place] [address] Marek Bonilla MD [address] [facility] A DERMATOLOGY [place], [place] [address] documented as of this encounter Results * Basic Metabolic Panel (non-fasting) (08/18/2016 4:50 PM EST) [facility] Glucose 82 65 - 199 mg/dL [facility] Comment:Diabetes: >=200 mg/d L plus symptoms Blood Urea Nitrogen 12 8 - 18 mg/dL [facility] Creatinine 0.87 0.70 - 1.20 mg/dL [facility] Comment: Please note that the pediatric reference intervals supplied above were not validated at [facility]. Results from pediatric patients should be interpreted in conjunction to the patient's age, height and muscle mass. Sodium 142 135 - 145 mmol/L [facility] [...] questions. Chloride 102 98 - 107 mmol/L [facility] Carbon Dioxide 26 22 - 31 mmol/L [facility] Anion Gap 14 5 - 15 mmol/L [facility] Calcium 9.7 8.5 - 10.5 mg/dL [facility] Est Glomerular Filtration Rate >60 >=60 [facility] Comment: This [...] following links into your internet browser. [email or web address] Blood specimen (specimen) 08/18/2016 4:50 PM EST 08/18/2016 5:03 PM EST Narrative Resulting Agency Comment Spec In Lab Alirio Esparza MD CHEMISTRY ORDERABLE S [facility] [place] [address] documented in this encounter Visit Diagnoses Diagnosis Aortic valve stenosis, unspecified etiology documented in this encounter Care Teams Cafeteria Food Server Relationship Specialty Start Date End Date Deborah Quiroga APRN PCP - General Family Medicine 03/24/16 02/04/23 documented as of this encounter
--- OUTSIDE RECORDS SUMMARY | 2024-03-14 14:12 | XMS_ITS | Encounter Summary ---
Author Organization [facility] [place] [address] Care Team Providers Care Shoes Salesperson Name Role Phone EitanDanni ANURAG Primary Care Provider [phone] Encounter Details Date Type Department Care Team (Late st Contact Info) Description 01/22/2014 Telephone Cardiology at [address] [phone] Cynthia Arrington LPN Social History Tobacco Use [...] LPN - 01/23/2014 2:39 PM EDT This insurance writer did not receive a call back [...] 4:15 PM EDT Office Visit Dermatology at [place] [address] [facility] [place] [address] Marek Bonilla MD [address], [place] [address] documented as of this encounter Visit Diagnoses Not on filedocumented in this encounter Care Teams Shoes Salesperson Relationship Specialty Start Date End Date Danni Laird APRN [address] [place] [address] PCP - General 01/23/14 11/11/14 documented as of this encounter
--- OUTSIDE RECORDS SUMMARY | 2024-03-14 14:12 | XMS_ITS | Encounter Summary ---
Author Organization [facility] Address [facility] [place] [address] Care Team Providers Care Reproduction Order Processor Name Role Phone Mitchell Wilkes MD Primary Care Provider [phone] Encounter Details Date Type Department Care Team (Late st Contact Info) Description 01/19/2014 Orders Only Cardiology at [address] [address] Chele Randolph, PA [facility] [place] [address] Cardiomyopathy (Primary Dx) Social History Tobacco Use [...] 4:15 PM EDT Office Visit Dermatology at [place] [address] [place] [address] Marek Bonilla MD [address], [place] [address] documented as of this encounter Procedures Procedure [...] cardiomyopathies documented in this encounter Care Teams Reproduction Order Processor Relationship Specialty Start Date End Date Mitchell Wilkes [facility] PCP - General 06/24/10 01/19/14 documented as of this encounter
--- OUTSIDE RECORDS SUMMARY | 2024-03-14 14:12 | XMS_ITS | Encounter Summary ---
Author Organization [facility] [place] [address] Care Team Providers Care Department Assistant Name Role Phone Eitan Danni ANURAG Primary Care Provider Encounter Details Date Type Department Care Team (Late st Contact Info) Description 01/23/2014 9:25 AM EDT - 01/23/2014 10:25 AM EDT Surgery Automotive [place] [address] Alan Jacobson MD [facility] [place] [address] CARDIAC CATHETERIZATION Social History Tobacco Use Types [...] by your doctor, do not take any yrqc-jhw-evdrxit medicines or herbal preparations without first discussing this with your doctor or pharmacist. There is the possibility of side effect and interactions when these are combined. Follow up Care Who to Call with Questions or Problems If there are any questions or problems that you think might be related to your cardiac cath or angioplasty, contact the industrial eng financial sales professional by calling [facility] at . documented in [...] 4:15 PM EDT Office Visit Dermatology at [place] [address] [place] [address] Marek Bonilla MD [address], [address] [place] [address] documented as of this encounter Procedures Procedure Name Priority Date/Time Associated Diagnosis Comments ECHOCARDIOGRAM TRANSTHORACIC Routine 01/23/2014 3:17 PM EDT SOB (shortness of breath) documented in this encounter Results * Echocardiogram Transthoracic(Leb) (01/23/2014 3:17 PM EDT) Pathologist [employer] EF 50 [employer] SYSTEM Anatomical Region Laterality Modality Other 01/23/2014 Narrative 01/23/2014 4:35 PM EDT Procedure: ? Transthoracic Echocardiogram Patient: ? ANDREW ECHOLS M ?(Age): 1955(58) Med Rec#: ?[id number] ? Sex: ?F ? [place] Ht / Wt: ??158(cm)/93(kg) Pt. Loc: ? Adult Floor ?BSA: ?2.02 Study Date: ?01/23/2014 ? Pt. Type: Inpatient Tape: ? Referring: Lee Kincaid ([id number]) Referring: ANNALISA Assembler Convertible Top: Miguel Beverly Diagnosis:CPT Code(s): ??Echo Full (67279), ??Spectral Doppler (82027), Color Doppler (38220), Indication(s): ??Aortic stenosis Rhythm: Sinus HR ?BP [...] ? Mid-Inferior ?Hypokinetic ? Mid-Inferoseptal ?Hypokinetic ? [place]-Septal ? Hypokinetic ? [place]-Anterior ? Hypokinetic ? [place]-Lateral ?Hypokinetic ? [place]-Inferior ? Hypokinetic ? [place]-Tip ?Hypokinetic ? Chambers ?Value ?Units (Range) ? [...] 01/23/2014 16:34:37 Images reviewed and interpretation verified [facility] Cardiac Ultrasound Laboratory Procedure Note Lee Kincaid MD - 01/23/2014 Procedure: Transthoracic Echocardiogram Patient: ANDREW Mejias (Age): 1955(58) Med Rec#: [id number] Sex: F [place] Loc[place] [facility] Ht / Wt: 158(cm)/93(kg) Pt. Loc: Adult Floor BSA: 2.02 Study Date: 01/23/2014 Pt. Type: Inpatient Tape: Referring: Lee Kincaid ([id number]) Referring: HOQUIAMELOYBANNERRadha Assembler Convertible Top: Miguel Beverly Diagnosis:CPT Code(s): Echo Full (30277), Spectral Doppler (73848), Color Doppler (35842), Indication(s): Aortic stenosis Rhythm: Sinus HR BP [...] Hypokinetic Mid-Posterolateral Hypokinetic Mid-Inferior Hypokinetic Mid-Inferoseptal Hypokinetic [place]-Septal Hypokinetic [place]-Anterior Hypokinetic [place]-Lateral Hypokinetic [place]-Inferior Hypokinetic [place]-Tip Hypokinetic Chambers Value Units (Range) IVSd 2D [...] 01/23/2014 16:34:37 Images reviewed and interpretation verified [facility] Cardiac Ultrasound Laboratory Lee [...] 0859 (New Bag - Prov ider: Katelynn Parr, VALDO) sodium chloride 0.9% infusion (CANCELED) 100 mL/hr, Intravenous, CONTINUOUS, Starting on Wed01/23/14 at 1330, Until Wed01/23/14 at 2045 1310 (New Bag - Prov ider: Seble Espinoza, VALDO) PRN Medication Order 01/21/2014 01/22/2014 01/23/2014 [id number] [...] RN) documented in this encounter Care Teams Department Assistant Relationship Specialty Start Date End Date Danni Laird APRN [address] [place] [address] PCP - General 01/23/14 11/11/14 documented as of this encounter
--- OUTSIDE RECORDS SUMMARY | 2024-03-14 14:12 | XMS_ITS | Encounter Summary ---
Author Organization [facility] Address [facility] [place] [address] Care Team Providers Care Settlement Worker Name Role Phone EitanMagnusDanni ANURAG Primary Care Provider Encounter Details Date Type Department Care Team (Latest Contact Info) Description 01/23/2014 7:45 AM EDT - 01/23/2014 5:50 PM EDT Hospital Encounter [place] [address] Alan Jacobson MD [facility] [place] [address] Cardiomyopathy; SOB (shortness of breath) Discharge Disposition: [...] by your doctor, do not take any aypw-kur-bvbfojb medicines or herbal preparations without first discussing this with your doctor or pharmacist. There is the possibility of side effect and interactions when these are combined. Follow up Care Who to Call with Questions or Problems If there are any questions or problems that you think might be related to your cardiac cath or angioplasty, contact the engine maintenance mechanic well control instructor by calling [facility] at . [...] PM EDT Office Visit Dermatology at [place] [address] [facility] [place] [address] Marek Bonilla MD [address], [address] [place] [address] documented as of this encounter Procedures Procedure [...] ANDREW ECHOLS M ?(Age): 1955(58) Med Rec#: ?[id number] ? Sex: ?F ? Site Loc: [facility] ? Ht / Wt: ??158(cm)/93(kg) Pt. Loc: ? Adult Floor ?BSA: ?2.02 Study Date: ?01/23/2014 ? Pt. Type: Inpatient Tape: ? Referring: Lee Kincaid ([id number]) Referring: ANNALISA Developer Prover Upholstering: Miguel Beverly Diagnosis:CPT Code(s): ??Echo Full (82964), ??Spectral Doppler (04797), Color Doppler (08779), Indication(s): ??Aortic stenosis Rhythm: Sinus HR ?BP [...] ? Mid-Inferior ?Hypokinetic ? Mid-Inferoseptal ?Hypokinetic ? [place]-Septal ? Hypokinetic ? [place]-Anterior ? Hypokinetic ? [place]-Lateral ?Hypokinetic ? [place]-Inferior ? Hypokinetic ? [place]-Tip ?Hypokinetic ? Chambers ?Value ?Units (Range) ? [...] Patient: ANDREW Mejias (Age): 1955(58) Med Rec#: [id number] Sex: F Site Loc: [facility] Ht / Wt: 158(cm)/93(kg) Pt. Loc: Adult Floor BSA: 2.02 Study Date: 01/23/2014 Pt. Type: Inpatient Tape: Referring: Lee Kincaid ([id number]) Referring: ANNALISA Developer [employer]ver Upholstering: Miguel Beverly Diagnosis:CPT Code(s): Echo Full (40776), Spectral Doppler (88854), Color Doppler (79628), Indication(s): Aortic stenosis Rhythm: Sinus HR BP [...] Hypokinetic Mid-Posterolateral Hypokinetic Mid-Inferior Hypokinetic Mid-Inferoseptal Hypokinetic [place]-Septal Hypokinetic [place]-Anterior Hypokinetic [place]-Lateral Hypokinetic [place]-Inferior Hypokinetic [place]-Tip Hypokinetic Chambers Value Units (Range) IVSd 2D [...] RN) documented in this encounter Care Teams Settlement Worker Relationship Specialty Start Date End Date Danni Laird APRN [address] [place] [address] PCP - General 01/23/14 11/11/14 documented as of this encounter
--- OUTSIDE RECORDS SUMMARY | 2024-03-14 14:12 | XMS_ITS | Encounter Summary ---
Author Organization [facility] Address [facility] [place] [address] Care Team Providers Care Machine Adjuster Leader Case Trim Name Role Phone Danni Laird APRN Primary Care Provider [phone] Encounter Details Date Type Department Care Team (Late st Contact Info) Description 01/23/2014 Orders Only Cardiology at [address] [address] Lee Kincaid MD [facility] [place] [address] SOB (shortness of breath) (Primary Dx) Social [...] PM EDT Office Visit Dermatology at [place] [address] [facility] [address] Marek Bonilla MD [address] [facility], [address] A DERMATOLOGY [place], [place] [address] documented as of this encounter Results * Echocardiogram Transthoracic(Leb) (01/23/2014 3:17 PM EDT) EF 50 [employer]ART[employer] SYSTEM Anatomical Region Laterality Modality Other 01/23/2014 Narrative 01/23/2014 4:35 PM EDT Procedure: ? Transthoracic Echocardiogram Patient: ? ANDREW Mejias ?(Age): 1955(58) Med Rec#: ?[id number] ? Sex: ?F ? [place] Ht / Wt: ??158(cm)/93(kg) Pt. Loc: ? Adult Floor ?BSA: ?2.02 Study Date: ?01/23/2014 ? Pt. Type: Inpatient Tape: ? Referring: Lee Kincaid ([id number]) Referring: ANNALISA Switchboard Operator Assistant: Miguel Beverly Diagnosis:CPT Code(s): ??Echo Full (36262), ??Spectral Doppler (22717), Color Doppler (07736), Indication(s): ??Aortic stenosis Rhythm: Sinus HR ?BP [...] ? Mid-Inferior ?Hypokinetic ? Mid-Inferoseptal ?Hypokinetic ? [place]-Septal ? Hypokinetic ? [place]-Anterior ? Hypokinetic ? [place]-Lateral ?Hypokinetic ? [place]-Inferior ? Hypokinetic ? [place]-Tip ?Hypokinetic ? Chambers ?Value ?Units (Range) ? [...] Patient: ANDREW Mejias (Age): 1955(58) Med Rec#: [id number] Sex: F [place] [facility] [place]t / Wt: 158(cm)/93(kg) Pt. Loc: Adult Floor BSA: 2.02 Study Date: 01/23/2014 Pt. Type: Inpatient Tape: Referring: Lee Kincaid ([id number]) Referring: ANNALISA Switchboard Operator Assistant: Miguel Beverly Diagnosis:CPT Code(s): Echo Full (77365), Spectral Doppler (19472), Color Doppler (67206), Indication(s): Aortic stenosis Rhythm: Sinus HR BP [...] Hypokinetic Mid-Posterolateral Hypokinetic Mid-Inferior Hypokinetic Mid-Inferoseptal Hypokinetic [place]-Septal Hypokinetic [place]-Anterior Hypokinetic [place]-Lateral Hypokinetic [place]-Inferior Hypokinetic [place]-Tip Hypokinetic Chambers Value Units (Range) IVSd 2D [...] breath documented in this encounter Care Teams Machine Adjuster Leader Case Trim Relationship Specialty Start Date End Date Danni Laird APRN [address] [place] [address] PCP - General 01/23/14 11/11/14 documented as of this encounter
--- OUTSIDE RECORDS SUMMARY | 2024-03-14 14:12 | XMS_ITS | Encounter Summary ---
Author [place] [address] Care Team Providers Care Marketer Name Role Phone Mitchell Wilkes MD Primary Care Provider [phone] Reason for Visit * Reason Onset Date Comments Other 01/18/2014 Encounter Details Date Type Department Care Team (Late st Contact Info) Description 01/18/2014 Telephone Cardiology at [address] [address] Jesusita Garces Other Social History [...] PM EDT Office Visit Dermatology at [address] [address] Marek Bonilla MD [address] [place] [address] RD, [place] [address] documented as of this encounter Visit Diagnoses Not on filedocumented in this encounter Care Teams Marketer Relationship Specialty Start Date End Date Mitchell Wilkes MD [facility] PCP - General 06/24/10 01/19/14 documented as of this encounter
--- OUTSIDE RECORDS SUMMARY | 2024-03-16 14:06 | XMS_ITS | Referral Summary ---
Author Organization [facility] Address [address] [place] [address] Care Team Providers Care Wire Weaver Name Role Phone Ashley Chavez Primary Care Provider [phone] Social History Tobacco Use Types Packs/Day Years Used Date Smoking Tobacco: Never Assessed Interpersonal Safety Answer Date Record ed Physically Hurt Never 03/03/2020 Verbally Threaten Not on file 03/03/2020 Sex and Gender Information Value Date Recorded Sex Assigned at Not on file Gender Identity Not on file Sexual Orientation Not on file Plan of Treatment Not on file Care Teams Wire Weaver Relationship Specialty Start Date End Date Ashley Chavez ARNP [address] [place] [address] PCP - General 07/11/10
--- OUTSIDE RECORDS SUMMARY | 2024-03-16 14:06 | XMS_ITS | Encounter Summary ---
Author Organization [facility] Address [address] [place] [address] Care Team Providers Care Microbiology Lab Assistant Name Role Phone Scott, Ashley WILLIAM Primary Care Provider [phone] Encounter Details Date Type Department Care Team (Late st Contact Info) Description 12/23/2016 Results Only [facility] [phone] Deborah Quiroga, LICENSED MASTER SOCIAL WORKER [address] [place] [phone] Social History Tobacco Use Types Packs/Day Years [...] ? 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 Accession #: ? [id number] ? : ? 1955 (Age: 61) ??F ?Collect Date: ? 12/23/2016 ? Location: ? [facility] ? Receive Date: ? 12/25/2016 ? Provider: DEBORAH QUIROGA PROTECTIVE SERVICES SOCIAL WORKER Copy to: ? Final Report SPECIMEN ADEQUACY ? Satisfactory for Evaluation - transformation zone component present GENERAL CATEGORIZATION ? Negative for Intraepithelial Lesion or Malignancy ?? Last Menstrual Period: years Specimen/Source: ??Pap Test, Cervix, ThinPrep Imaging System with manual evaluation Document reviewed and electronically signed by: ? Monica Cason [facility](ASCP) ? Report ??Date: 01/06/2017 09:11 HPV with Pap Test ? Date Ordered: ? 01/06/2017 ? Status: ?? Signed Out ?Date Complete: ? 01/07/2017 ? By: ??System Interface ? Date Reported: ? 01/07/2017 ? Interpretation RESULT: Negative for HPV. No E6 or E7 mRNA is detected from HPV types 16,18,31,33,35, 39,45,51,52,56,58, 59,66, and 68 by spinner concrete pipe mediated amplification. Comments Document reviewed and electronically signed by: ? System Interface ? Report date: 01/07/2017 By the signature above, the attending physician certifies that he/she has personally conducted a gross and/or microscopic examination of the described specimens and rendered or confirmed the above diagnosis. End of Report [facility] 12/23/2016 12/25/2016 Deborah Quiroga LICENSED MASTER SOCIAL WORKER PATHOLOGY ORDERABLES [facility] [address] [place] [address] documented in this encounter Visit Diagnoses Not on filedocumented in this encounter Care Teams Microbiology Lab Assistant Relationship Specialty Start Date End Date Ashley Chavez ARNP [address] [place] [address] PCP - General 07/11/10 documented as of this encounter
--- OUTSIDE RECORDS SUMMARY | 2024-03-16 14:06 | XMS_ITS | Clinical Summary ---
Author Organization [facility] Address [address] [place] [address] Care Team Providers Care Parts Washer Name Role Phone Ashley Chavez Primary Care Provider [phone] Social History Tobacco Use Types Packs/Day Years [...] COVID-19 Vaccine (2022-24 season) 2023 Care Teams Parts Washer Relationship Specialty Start Date End Date Ashley Chavez ARNP [address] [place] [address] PCP - General 07/11/10
--- OUTSIDE RECORDS SUMMARY | 2024-03-16 14:06 | XMS_ITS | Encounter Summary ---
Author Organization [facility] Address [address] [place] [address] Care Team Providers Care Scorer Single Name Role Phone Scott Ashley WILLIAM Primary Care Provider [phone] Encounter Details Date Type Department Care Team (Late st Contact Info) Description 05/12/2019 Results Only [facility] [phone] Nadira Gregorio MD [address] [place] [phone] Social History Tobacco Use Types Packs/Day [...] ? 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 Accession #: ? [id number] ? : ? 1955 (Age: 63) ??F ? Collect Date: ? 05/12/2019 ? Location: ? [facility] ? Receive Date: ? 05/12/2019 ? Provider: NADIRA GREGORIO MD Copy to: WINTER HANKINS DYE TUB TENDER ? Final Pathologic Diagnosis: COLON, CECUM, POLYP, [...] (ASCP) 05/12/2019 6:08 PM End of Report [facility] 05/12/2019 16:0 3 EDT 05/12/2019 16:03 EDT Nadira Gregorio MD PATHOLOGY ORDERABLES [facility] [address] [place] [address] documented in this encounter Visit Diagnoses Not on filedocumented in this encounter Care Teams Scorer Single Relationship Specialty Start Date End Date Ashley Chavez ARNP [address] [place] [address] PCP - General 07/11/10 documented as of this encounter
--- OUTSIDE RECORDS SUMMARY | 2024-03-16 14:06 | XMS_ITS | Encounter Summary ---
Author Organization [facility] Address [address] [place] [address] Care Team Providers Care Commercial Lease Administrator Name Role Phone Ashley Chavez Primary Care Provider [phone] Encounter Details Date Type Department Care Team (Latest Contact Info) Description 05/12/2019 13:18 EDT - 05/12/2019 23:59 EDT Hospital Encounter [address] [address] Unknown, Provider, Discharge Disposition: Home or Self Care Social History Tobacco Use Types Packs/Day Years Used Date Smoking Tobacco: Never Assessed Sex and Gender Information Value Date Recorded Sex Assigned at Not on file Gender Identity Not on file Sexual Orientation Not on file documented as of this encounter Discharge Disposition Disposition Code Departure Means Destination Home or Self [facility] documented in this encounter Plan of Treatment Not on file documented as of this encounter Visit Diagnoses Not on filedocumented in this encounter Care Teams Commercial Lease Administrator Relationship Specialty Start Date End Date Ashley Chavez ARNP [address] [place] [address] PCP - General 07/11/10 documented as of this encounter
--- OUTSIDE RECORDS SUMMARY | 2024-03-16 14:06 | XMS_ITS | Encounter Summary ---
Author Organization [facility] Address [address] [place] [address] Care Team Providers Care Marine Equipment Test Engineer Name Role Phone Ashley Chavez Primary Care Provider [phone] Encounter Details Date Type Department Care Team (Late st Contact Info) Description 12/17/2021 Lab Requisition [facility] Pathology & Laboratory Medicine - [address] [address] Outr Resulting Lab, Provider Social History Tobacco [...] Lyme Ab Negative Negative 12/18/2021 10:37 EDT [facility] Blood VENOUS BLOOD / Unknown 12/17/2021 13:30 EDT 12/17/2021 21:32 EDT Provider Outr Resulting Lab IMMUNOLOGY A ND SEROLOGY ORDERABLES Performing Organization Address [facility] Co de Phone Number [facility] [address] [place] [address] * (ABNORMAL) ANTI NUCLEAR AB (FRANCISCO), IFA (12/17/2021 13:30 EDT) FRANCISCO Interpretation Positive(A) Negative 12/18/2021 16:06 EDT [facility] Comment: For titers greater [...] Pattern 1 1:1280 Speckled 12/18/2021 16:06 EDT [facility] Blood VENOUS BLOOD / Unknown 12/17/2021 13:30 EDT 12/17/2021 21:32 EDT Narrative [facility] - 12/18/2021 16:06 EDT Results were obtained with the INOVA NOVA Lite HEp-2 FRANCISCO Kit by indirect immunofluorescence. Provider Outr Resulting Lab IMMUNOLOGY A ND SEROLOGY ORDERABLES Performing Organization Address [facility] Co de Phone Number [facility] [address] [place] [address] documented in this encounter Visit Diagnoses Not on filedocumented in this encounter Care Teams Marine Equipment Test Engineer Relationship Specialty Start Date End Date Ashley Chavez ARNP [address] [place] [address] PCP - General 07/11/10 documented as of this encounter
--- OUTSIDE RECORDS SUMMARY | 2024-03-16 14:06 | XMS_ITS | Encounter Summary ---
Author Organization [facility] Address [address] [place] [address] Care Team Providers Care Continuous Vulcanizing Machine Operator Name Role Phone Ashley Chavez Primary Care Provider [phone] Encounter Details Date Type Department Care Team (Late st Contact Info) Description 04/29/2022 Lab Requisition [facility] Pathology & Laboratory Medicine - [address] [address] Outr Resulting Lab, Provider Social History Tobacco [...] Antibody 1.6 <20.0 Units 04/30/2022 12:23 EDT [facility] Comment: ? Negative: <20.0 Units [...] A ND SEROLOGY ORDERABLES Performing Organization Address [facility] de Phone Number [facility] [address] [place] [address] * SSA ANTIBODIES BY DOMO (04/29/2022 7:51 EDT) SSA Antibody 1.5 <20.0 Units 04/30/2022 12:22 EDT [facility] Comment: ? Negative: <20.0 Units [...] A ND SEROLOGY ORDERABLES Performing Organization Address [facility] de Phone Number [facility] [address] [place] [address] documented in this encounter Visit Diagnoses Not on filedocumented in this encounter Care Teams Continuous Vulcanizing Machine Operator Relationship Specialty Start Date End Date Ashley Chavez ARNP [address] [place] [address] PCP - General 07/11/10 documented as of this encounter
--- OUTSIDE RECORDS SUMMARY | 2024-03-16 14:06 | XMS_ITS | Encounter Summary ---
Author Organization [facility] Address [address] [place] [address] Care Team Providers Care Lead Pl Sql Developer Name Role Phone Ashley Chavez Primary Care Provider Encounter Details Date Type Department Care Team (Late st Contact Info) Description 10/30/2022 Lab Requisition [facility] [place] [facility] Pathology & Laboratory Medicine - [address] [address] Outr Resulting Lab, Provider Social History Tobacco [...] <30.0 IU/mL 11/03/2022 13:[address] [facility] Comment: ? Negative: ??<30.0 IU/mL ? Borderline Positive: ??30.0 - 75.0 IU/mL ? Positive: ??>75.0 IU/mL Results were obtained with the INOVA QUANTA Lite dsDNA SC DOMO assay on the [employer] DSX. Blood VENOUS BLOOD / Unknown 10/29/2022 14:00 EDT 10/30/2022 19:27 EDT Provider Outr Resulting Lab IMMUNOLOGY A ND SEROLOGY ORDERABLES Performing Organization Address [facility] de Phone Number [facility] [address] [place] [address] * SM (MORENO) ANTIBODY (10/29/2022 14:00 EDT) [facility] SM (Moreno) Antibody 18.5 <20.0 Units 11/03/2022 14:[address] [facility] Comment: ? Negative: <20.0 [...] A ND SEROLOGY ORDERABLES Performing Organization Address [facility] de Phone Number [facility] [address] [place] [address] documented in this encounter Visit Diagnoses Not on filedocumented in this encounter Care Teams Lead Pl Sql Developer Relationship Specialty Start Date End Date Ashley Chavez ARNP [address] [place] [address] PCP - General 07/11/10 documented as of this encounter
--- OUTSIDE RECORDS SUMMARY | 2024-03-16 14:06 | XMS_ITS | Encounter Summary ---
Author Organization [facility] Address [address] [place] [address] Care Team Providers Care Lockstitch Back Maker Name Role Phone Ashley Chavez Primary Care Provider [phone] Encounter Details Date Type Department Care Team (Late st Contact Info) Description 01/07/2023 Lab Requisition [facility] Pathology & Laboratory Medicine - [address] [id number] Outr Resulting Lab, Provider Social History Tobacco [...] 56.2 55.8 - 66.1 % 01/08/2023 11:28 [facility] Albumin g/dL 3.9 3.6 - 5.2 g/dL 01/08/2023 11:28 [facility] Alpha-1 % 5.1(H) 2.9 - 4.9 % 01/08/2023 11:28 [facility] Alpha-1 g/dL 0.40 0.15 - 0.40 g/dL 01/08/2023 11:28 [facility] Alpha-2 % 7.0(L) 7.1 - 11.8 % 01/08/2023 11:28 [facility] Alpha-2 g/dL 0.50 0.50 - 1.00 g/dL 01/08/2023 11:28 [facility] Beta % 12.7 8.4 - 13.1 % 01/08/2023 11:28 [facility] Beta g/dL 0.90 0.60 - 1.20 g/dL 01/08/2023 11:28 [facility] Gamma % 19.0(H) 11.1 - 18.8 % 01/08/2023 11:28 [facility] Gamma g/dL 1.30 0.60 - 1.60 g/dL 01/08/2023 11:28 [facility] SPEP Comment No apparent monoclonal protein seen on serum electrophoresis 01/08/2023 11:28 [facility] Comment:See scanned/suppleme ntary report. Total Protein 6.9 6.3 - 8.2 g/dL 01/08/2023 11:28 [facility] Blood VENOUS BLOOD / Unknown 01/06/2023 14:40 EDT 01/07/2023 17:37 EDT Provider Outr Resulting Lab CHEMISTRY & BLOOD GAS ORDERABLES Performing Organization Address City/State/[facility] Co de Phone Number [facility] [address] [place] [address] * PROTEIN, TOTAL (01/06/2023 14:40 EDT) Blood VENOUS BLOOD / Unknown 01/06/2023 14:40 EDT 01/07/2023 17:37 EDT Provider Outr Resulting Lab CHEMISTRY & BLOOD GAS ORDERABLES Performing Organization Address [facility] Co de Phone Number [facility] [address] [place] [address] * (ABNORMAL) EXTRACTABLE NUCLEAR ANTIGEN PANEL (01/06/2023 14:40 EDT) SSA Antibody 1.3 <20.0 Units 01/08/2023 15:42 EDT [facility] Comment: ? Negative: <20.0 [...] 1.5 <20.0 Units 01/08/2023 15:42 EDT [facility] Comment: ? Negative: <20.0 [...] 15.3 <20.0 Units 01/08/2023 15:42 EDT [facility] Comment: ? Negative: <20.0 Units ? Weak Positive: 20.0 - 39.9 Units ? Moderate Positive: 40.0 - 80.0 Units ? Strong Positive: >80.0 Units Results were obtained with the [employer] QUANTA Lite Sm DOMO. ??Sm values obtained with different manufacturers' assay methods may not be used interchangeably. ??The magnitude of the reported IgG levels cannot be correlated to an endpoint titer. HEAD CHARRER Antibody 149.1(H) <20.0 Units 01/08/2023 15:42 EDT [facility] Comment: ? Negative: <20.0 Units ? Weak Positive: 20.0 - 39.9 Units ? Moderate Positive: 40.0 - 80.0 Units ? Strong Positive: >80.0 Units Results were obtained with the [employer]va Quanta Lite HEAD CHARRER DOMO. HEAD CHARRER values obtained with different embroidery assistant's assay methods may not be used interchangeaby. ??The magnitude of the reported IgG levels cannot be be correlated to an endpoint titer. A positive result in the Quanta Lite HEAD CHARRER DOMO indicates the presence of antibodies reactive with the HEAD CHARRER/Sm complex but cannot distinguish between anti-Sm and anti-HEAD CHARRER activity. Blood VENOUS BLOOD / Unknown 01/06/2023 14:40 EDT 01/07/2023 17:37 EDT Provider Outr Resulting Lab IMMUNOLOGY A ND SEROLOGY ORDERABLES [facility] [address] [place] [address] * (ABNORMAL) ANTI NUCLEAR AB (FRANCISCO), IFA (01/06/2023 14:40 EDT) FRANCISCO Interpretation Positive(A) Negative 01/08/2023 15:22 EDT [facility] Comment: Result is equal [...] 1 1:5120 Speckled 01/08/2023 15:22 EDT [facility] Blood VENOUS BLOOD / Unknown 01/06/2023 14:40 EDT 01/07/2023 17:37 EDT Narrative [facility] - 01/08/2023 15:22 EDT Results were obtained with the INOVA NOVA Lite HEp-2 FRANCISCO Kit by indirect immunofluorescence. Provider Outr Resulting Lab IMMUNOLOGY A ND SEROLOGY ORDERABLES Performing Organization Address City/State/[facility] Co de Phone Number [facility] [address] [place] [address] documented in this encounter Visit Diagnoses Not on filedocumented in this encounter Care Teams Lockstitch Back Maker Relationship Specialty Start Date End Date Ashley Chavez ARNP [address] [place] [address] PCP - General 07/11/10 documented as of this encounter
--- OUTSIDE RECORDS SUMMARY | 2024-03-16 14:06 | XMS_ITS | Encounter Summary ---
Author Organization [facility] Address [address] [place] [address] Care Team Providers Care Label Drier Name Role Phone Ashley Chavez Primary Care Provider [phone] Encounter Details Date Type Department Care Team (Late st Contact Info) Description 05/12/2022 Lab Requisition [facility] Pathology & Laboratory Medicine - [address] [id number] Outr Resulting Lab, Provider Social History Tobacco [...] 14:32 EDT) Hold Hold 05/12/2022 22:46 EDT [facility] Blood VENOUS BLOOD / Unknown 05/12/2022 14:32 EDT 05/12/2022 21:40 EDT Provider Outr Resulting Lab LAB INFO SER VICE AND SUPPORT & PHONE RESULT Performing Organization Address [facility]/ZIP Co de Phone Number [facility] [address] [place] [address] * (ABNORMAL) HOMOCYSTEINE (05/12/2022 14:32 EDT) Homocysteine 14.7(H) 5.0 - 13.9 umol/L 05/13/2022 9:05 EDT [facility] Comment:Results may be false ly elevated if sample is not collected on ice or is not removed from cells within 1 hour of collection. Blood VENOUS BLOOD / Unknown 05/12/2022 14:32 EDT 05/12/2022 21:40 EDT Narrative [facility] - 05/13/2022 9:05 EDT Reference [...] & BLOOD GAS ORDERABLES Performing Organization Address [facility] Co de Phone Number [facility] [address] [place] [address] * HAPTOGLOBIN (05/12/2022 14:32 EDT) Pathologist [facility] Haptoglobin 138 32 - 197 mg/dL 05/13/2022 9:55 EDT [facility] Blood VENOUS BLOOD / Unknown 05/12/2022 14:32 EDT 05/12/2022 21:36 EDT Provider Outr Resulting Lab CHEMISTRY & BLOOD GAS ORDERABLES Performing Organization Address [facility] Co de Phone Number [facility] [address] [place] [address] * (ABNORMAL) ANTI NUCLEAR AB (FRANCISCO), IFA (05/12/2022 14:32 EDT) FRANCISCO Interpretation Positive(A) Negative 05/13/2022 14:44 EDT [facility] Comment: Result is [...] Pattern 1 1:5120 Speckled 05/13/2022 14:44 EDT [facility] Blood VENOUS BLOOD / Unknown 05/12/2022 14:32 EDT 05/12/2022 21:36 EDT Narrative [facility] - 05/13/2022 14:44 EDT Results were obtained with the INOVA NOVA Lite HEp-2 FRANCISCO Kit by indirect immunofluorescence. Provider Outr Resulting Lab IMMUNOLOGY A ND SEROLOGY ORDERABLES [facility] [address] [place] [address] documented in this encounter Visit Diagnoses Not on filedocumented in this encounter Care Teams Label Drier Relationship Specialty Start Date End Date Ashley Chavez ARNP [address] [place] [address] PCP - General 07/11/10 documented as of this encounter
--- OUTSIDE RECORDS SUMMARY | 2024-03-16 14:07 | XMS_ITS | Encounter Summary ---
[place] [address] Care Team Providers Care Iuss Acoustic Analyst Name Role Phone Magdalena Acosta MD Primary Care Provider [phone] Encounter Details Date Type Department Care Team [...] 4:15 PM EDT Office Visit Dermatology at [place] [address] [place] [address] Marek Bonilla MD [address], [place] A DERMATOLOGY [place], [place] [address] documented as of this encounter Visit Diagnoses Not on filedocumented in this encounter Care Teams Iuss Acoustic Analyst Relationship Specialty Start Date End Date Magdalena Acosta MD [address] [place] [address] PCP - General Family Medicine 02/05/23 documented as of this encounter
--- OUTSIDE RECORDS SUMMARY | 2024-03-16 14:07 | XMS_ITS | Encounter Summary ---
[place] [address] Care Team Providers Care Resource Management Specialist Name Role Phone Magdalena Acosta MD Primary Care Provider [phone] Reason for Visit * Reason Comments Annual Exam Encounter Details Date Type Department Care Team (Late st Contact Info) Description 02/22/2024 4:15 PM EDT Office Visit Dermatology at [address] [phone] Marek Bonilla MD [address] [facility], [facility] A DERMATOLOGY [place], [place] [id number] Seborrheic keratosis; Rosacea; Nevus Social History Tobacco [...] cutaneous and ocular 3. Previously told by antenna design engineer that she had corneal tears from her [...] 4:15 PM EDT Office Visit Dermatology at [place] [address] [place] [address] Marek Bonilla MD [address] [facility], [place] [address] documented as of this encounter Visit Diagnoses Diagnosis Seborrheic keratosis Other seborrheic keratosis Rosacea Nevus Benign neoplasm of skin, site unspecified documented in this encounter Care Teams Resource Management Specialist Relationship Specialty Start Date End Date Magdalena Acosta MD [address] [place] [address] PCP - General Family Medicine 02/05/23 documented as of this encounter
--- OUTSIDE RECORDS SUMMARY | 2024-03-16 14:07 | XMS_ITS | Encounter Summary ---
Author Organization Counts Include [address] [facility] [address] Care Team Providers Care Lithographers Printer Name Role Phone Magdalena Acosta MD Primary Care Provider [phone] Reason for Referral * Diagnostic Test (Routine) - Closed Specialty Diagnoses / Procedures Referred By Contac t Referred To Contact Cardiology Diagnoses S/P TAVR (transcatheter aortic valve replacement) Procedures Echocardiogram Transthoracic Vinod Juárez PA [facility] [place] [address] [facility] [place] [address] Referral ID Status Reason Start Date Expiration Date V isits Requested Visits Authorized [id number] Closed Specialty Service Requested 05/22/2023 05/21/2024 1 1 Reason for Visit * Diagnostic Test (Routine) - Closed Specialty Diagnoses / Procedures Referred By Contac t Referred To Contact Cardiology Diagnoses S/P TAVR (transcatheter aortic valve replacement) Procedures Echocardiogram Transthoracic Vinod Juárez PA [facility] [place] [address] [facility] [place] [address] Referral ID Status Reason Start Date Expiration Date V isits Requested Visits Authorized [id number] Closed Specialty Service Requested 05/22/2023 05/21/2024 1 1 Encounter Details Date Type Department Care Team (Latest Contact Info) Description 07/08/2023 10:19 AM EST - 07/08/2023 11:59 PM EST Hospital Encounter Non[place] [address] Alirio Esparza MD S/P TAVR (transcatheter aortic valve replacement) Discharge [...] 4:15 PM EDT Office Visit Dermatology at [place] [address] [place] [address] Marek Bonilla MD [address], [place] [place] [address] documented as of this encounter Procedures Procedure [...] EST Narrative 07/08/2023 12:26 PM EST [address] [place] [address] ? Echocardiogram Report Name: ONESIMO THACKER ?Study Date: 07/08/2023 10:31 AMBP: 118/60 mmHg ? Patient Location: : 1955 ? Height: 155 cm ? Account: [id number] Age: 67 yrs ? Weight: 74 kg [...] no significant change (post-procedure). Procedure Limited - 70526. Doppler - 92075. Color Doppler - 46056. Satisfactory quality. This study is limited because [...] cm/sec E/e' (med): 18.2 E/e' Average: 20.1 GEOVNANA(I,D): 1.4 cm2 Dimensionless index Aov: 0.39 I ?WMSI = 2.00 ? % Normal = 0 ?Segments ??Size X - Cannot ?2 - ?4 - ?1-2 ? small Interpret ?1 - Normal ?? Hypokinetic 3 - Akinetic Dyskinetic ?? 3-5 ? moderate 5 - ? 6-14 ?large Aneurysmal ?15-16 ?? diffuse Procedure Note Lee Kincaid MD - 07/08/2023 [address] [place] [address] Echocardiogram Report Name: ANDREWONESIMO Study Date: 0:31 AMBP: 118/60 mmHg Patient Location: : 1955 Height: 155 cm Account: [id number] Age: 67 yrs Weight: 74 kg Gender: [...] is nosignificant change (post-procedure). Procedure Limited - 52257. Doppler - 01229. Color Doppler - 15545. Satisfactoryquality. This study is limited because of [...] replacement) documented in this encounter Care Teams Lithographers Printer Relationship Specialty Start Date End Date Magdalena Acosta MD [address] [place] [address] PCP - General Family Medicine 02/05/23 documented as of this encounter
--- OUTSIDE RECORDS SUMMARY | 2024-03-16 14:07 | XMS_ITS | Encounter Summary ---
Author Organization [facility] Address [address] [place] [address] Care Team Providers Care Sorting Livestock Worker Name Role Phone Unavailable Primary Care Provider Unavailabl e Encounter Details Date Type Department Care Team (Late st Contact Info) Description 07/08/2010 Results Only [facility] Non-Invasive Cardiology - [facility] [address] [place] [address] Ashley Chavez, WILLIAM [address] [place] [address] Social History Tobacco Use Types Packs/Day Years [...] ? 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 Accession #: ? [id number] ? : ? 1955 (Age: 54) ??F [...] Ashley THOMAS PATHOLOGY ORDERABLES PAUL ARELLANO [address] [place] [address] documented in this encounter Visit Diagnoses Not on filedocumented in this encounter
--- OUTSIDE RECORDS SUMMARY | 2024-03-16 14:07 | XMS_ITS | Clinical Summary ---
Author Organization [facility] Address [facility] [place] [address] Care Team Providers Care Strategy Manager Name Role Phone Magdalena Acosta MD Primary Care Provider [phone] Allergies No known active allergies Medications Medication [...] 05/08/2023 Mild coronary artery disease by [facility] 11/09/2022 Heart failure with [...] Care Team Description 03/01/2024 Telephone Cardiology at [address] [address] Cynthia Monsalve RN Pre Procedure Call (DAPT hold for EGD and colo?) 02/22/2024 4:15 PM EDT Office Visit Dermatology at [address] [address] Marek Bonilla MD Seborrheic keratosis; Rosacea; Nevus 02/22/2024 Travel 12/16/2023 Orders Only Cardiology at [address] [phone] Antelmo Sharma MD S/P TAVR (transcatheter aortic [...] 4:15 PM EDT Office Visit Dermatology at [place] [address] [place] [address] Marek Bonilla MD [address] [place] [address] Health Maintenance Due Date Last Done Comments [...] 06/05/2036 06/05/2021 Medical Devices Implanted Type Area Bioinformatics Assistant Device Identifier Shelf Expiration Date Model / Serial / Lot Valve,Aor,Pericar d,Magna,25mm ([id number]) - [id number] Implanted:Qty: 1 on 09/21/2016 by Alirio Esparza MD at [facility] IMPLANTS N/A: Heart DO NOT USE [employer] - [id number] 06/02/2020 [id number] / / [id number] Cable,Blnt,Ss,38i n ([id number]) - [id number] Implanted:Qty: 4 on 09/21/2016 by Alirio Esparza MD at [facility] IMPLANTS N/A: Chest [employer] - [id number] 04/29/2021 [id number] / / [id number] Patch,Cav,Pericar d,2x5cm ([id number]) (Autoreq) - [id number] Implanted:Qty: 1 on 09/21/2016 by Aliroi Esparza MD at [facility] IMPLANTS N/A: Heart DO NOT USE [employer] - [id number] 04/21/2018 [id number] / / [id number] Tavr-05/12/2023 Implanted:Qty: 1 on 05/12/2023 by Antelmo Sharma MD Other Heart [employer] - JAIME LI [id number] / [id number] / Description:JAIME [employer] NCES ABBY 3 ULTRA [...] EST) Glucose 93 65 - 199 mg/dL [facility] Comment:Diabetes: >=200 mg/d L plus symptoms Blood Urea Nitrogen 19(H) 8 - 18 mg/dL [facility] Creatinine 0.81 0.70 - 1.20 mg/dL [facility] Sodium 142 135 - 145 mmol/L [facility] Potassium 3.8 3.5 - 5.0 mmol/L [facility] Comment: Please note: ??Patients with WBC >100,000 may have falsely elevated Potassium levels. ??For accurate Potassium quantification in these patients send serum separator tube (gold top) for subsequent determinations. ??Contact the Clinical Chemistry Laboratory if there are any questions. Chloride 104 98 - 107 mmol/L [facility] Carbon Dioxide 26 22 - 31 mmol/L [facility] Anion Gap 12 5 - 15 mmol/L [facility] Calcium 10.2 8.5 - 10.5 mg/dL [facility] Protein, Total 7.4 6.1 - 8.0 g/dL [facility] Albumin 4.1 3.2 - 5.2 g/dL [facility] Aspartate Aminotransferase 24 0 - 30 unit/L [facility] Alanine Aminotransferase 12 0 - 30 unit/L [facility] Alkaline Phosphatase 93 35 - 105 unit/L [facility] Bilirubin, Total 0.3 0.2 - 1.3 mg/dL [facility] Est Glomerular Filtration Rate 80 >=60 mL/min/1. 73 m?? [facility] Comment: This patient's estimated [...] Lab Alirio Esparza MD CHEMISTRY ORDERABLE S [facility] [place] [address] * DXA Central Spine, Hip, and/or Whole Body (Generic) (06/05/2021 11:58 AM EDT) PT CLASS O RAD ADMITDTTM RAD PT SYLVIA CULP INFO [id number]^E VERETT^DEBORAH ^E RAD EXAM DESC XDXAC^DEXA SCAN [...] who have questions please contact the health physician primary care sports medicine that requested your imaging first. ? Narrative [...] patients who have questions please contactthe health physician primary care sports medicine that requested your imaging first. Deborah Quiroga ONLINE EDITOR IMG DEXA ORDERABLES * Mammo Screening Cad Bilateral (06/05/2021 11:42 AM EDT) PT CLASS O DH RAD ADMITDTTM DH RAD PT RAD INFO [id number]^EV ERETT^DEBORAH^E DH RAD EXAM DESC MADDSC^SCREEN MAMMO [...] who have questions please contact the health physician primary care sports medicine that requested your imaging first. ? Narrative [...] patients who have questions please contactthe health physician primary care sports medicine that requested your imaging first. Deborah Quiroga [...] capacity to make decision: Yes Care Teams Strategy Manager Relationship Specialty Start Date End Date Magdalena Acosta MD [address] [place] [address] PCP - General Family Medicine 02/05/23
--- OUTSIDE RECORDS SUMMARY | 2024-03-16 14:07 | XMS_ITS | Encounter Summary ---
Author Organization [facility] Address [address] [place] [address] Care Team Providers Care Compact Assembler Name Role Phone Unavailable Primary Care Provider Unavailabl e Encounter Details Date Type Department Care Team (Late st Contact Info) Description 07/08/2010 10:55 EST - 07/08/2010 10:56 EST Hospital Encounter [facility] - Other [address] [place] [address] Ashley Chavez, WILLIAM [address] [place] [address] Discharge Disposition: Home or Self Care Social [...]
--- OUTSIDE RECORDS SUMMARY | 2024-03-16 14:07 | XMS_ITS | Encounter Summary ---
Author Organization [facility] Address [address] [place] [address] Care Team Providers Care Slitting Machine Operator Helper Name Role Phone Unavailable Primary Care Provider Unavailabl e Encounter Details Date Type Department Care Team (Late st Contact Info) Description 03/24/2007 Results Only [facility] Non-Invasive Cardiology - [facility] [address] [place], [place] [address] Ashley Chavez ARNP [address] [place] [address] Social History Tobacco Use Types Packs/Day Years [...] ? 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 Accession #: ? [id number] : ? 1955 (Age: 51) ??F ?Collect Date: ? 03/24/2007 Location: ? [facility] ? Receive Date: ? 03/28/2007 Provider: ?ASHLEY THOMAS Copy to: ? Specimen/Source: ?ThinPrep Pap Test, Endocervix, processed on Adreima ThinPrep Imaging System, with manual evaluation Last [...] Ashley THOMAS PATHOLOGY ORDERABLES [facility] [address] [place] [address] documented in this encounter Visit Diagnoses Not on filedocumented in this encounter
--- OUTSIDE RECORDS SUMMARY | 2024-03-16 14:07 | XMS_ITS | Encounter Summary ---
Author Organization [facility] Address [address] [place] [address] Care Team Providers Care Undergraduate Intern Name Role Phone Unavailable Primary Care Provider Unavailabl e Encounter Details Date Type Department Care Team (Late st Contact Info) Description 03/24/2007 11:06 EDT - 03/24/2007 11:59 EDT Hospital Encounter [facility] - Other [address] [place] [address] Ashley Chavez ARNP [address] [place] [address] Discharge Disposition: Home or Self Care Social [...]
--- OUTSIDE RECORDS SUMMARY | 2024-03-16 14:07 | XMS_ITS | Encounter Summary ---
Author Organization [facility] [place] [address] Care Team Providers Care Children Librarian Name Role Phone Magdalena Acosta MD Primary Care Provider [phone] Encounter Details Date Type Department Care Team (Late st Contact Info) Description 05/27/2023 Refill Cardiology at [address] [phone] Vero Marrero, RN Social History Tobacco Use Types Packs/Day Years Used Date Smoking Tobacco: Never Smokeless Tobacco: Never Alcohol Use Standard Drinks/Week Comments No 0 (1 standard drink = 0.6 oz pur e alcohol) none [facility]LY [facility], [facility]1983 Inpatient Questions Answer Date Recorded Does Anyone [...] PM EDT TC to Nurse Sosa at [facility] to relay response from Jay Maza copied below. Nurse Sosa states they will send a new prescription to patient's preferred pharmacy and call the patient with the medication information. No print prescription sent to update med list. May 27, 2023 Jay Maza PA to De 05/27/23 2:44 PM OK to change ticagrelor to Clopidogrel. Now, she should be taking ticagrelor 90mg BID. When she switches, she can take ticagrelor, then the next morning, stop ticagrelor, instead take clopidogrel 300mg once, then after that 75mg once daily. Jay Marrero test administrator Clinic at [facility] [phone] * Telephone Encounter - Vero Marrero RN - 05/27/2023 1:46 PM EDT VM received from triage nurse Sosa at [facility] stating patient was seen today by [...] possible. Vero Marrero RN Cardiology Clinic at [facility] [phone] documented in this encounter Plan of Treatment Upcoming Encounters Date Type Department Care Team (Late st Contact Info) Description 03/01/2025 4:15 PM EDT Office Visit Dermatology at [place] [address] [place] [phone] Marek Bonilla MD [address] [place] [address] documented as of this encounter Visit Diagnoses Diagnosis Aortic valve stenosis, etiology of cardiac valve disease unspecified documented in this encounter Care Teams Children Librarian Relationship Specialty Start Date End Date Magdalena Acosta MD [address] [place] [address] PCP - General Family Medicine 02/05/23 documented as of this encounter
--- OUTSIDE RECORDS SUMMARY | 2024-03-16 14:07 | XMS_ITS | Encounter Summary ---
Author Organization [facility] Address [address] [place] [address] Care Team Providers Care Contact Lens Edge Buffer Name Role Phone Unavailable Primary Care Provider Unavailabl e Encounter Details Date Type Department Care Team (Late st Contact Info) Description 06/29/2007 Results Only [facility] - Maple conversion [address] [place] [address] Sánchez Acevedo MD [address] [place] [address] Social History Tobacco Use Types Packs/Day Years [...] ? 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 Accession #: ? [id number] ? : ? 1955 (Age: 51) ??F [...] covered by a smooth white serosa. ??Three jewelry sales representative sections of the gallbladder are submitted in one cassette. ??(Sriram Elias/[facility] End of Report [facility] 06/29/2007 06/29/2007 21: 23 EST Sánchez Acevedo MD PATHOLOGY ORDERABLE S [facility] [address] [place] [address] documented in this encounter Visit Diagnoses Not on filedocumented in this encounter
--- OUTSIDE RECORDS SUMMARY | 2024-03-16 14:07 | XMS_ITS | Encounter Summary ---
Author Organization [facility] Address [address] [place] [address] Care Team Providers Care Hand Printed Circuit Board Assembler Name Role Phone Scott Ashley WILLIAM Primary Care Provider [phone] Encounter Details Date Type Department Care Team (Late st Contact Info) Description 11/10/2013 Results Only [facility] [phone] Jeni Laird, PARTITION MAKING MACHINE OPERATOR [address] [place], [place] [phone] Social History Tobacco Use Types Packs/Day Years [...] ? 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 Accession #: ? [id number] : ? 1955 (Age: 58) ??F ?Collect Date: ? 11/10/2013 Location: ? [facility] ? Receive Date: ? 11/14/2013 Provider: ?JENI LAIRD PARTITION MAKING MACHINE OPERATOR Copy to: ? Specimen/Source: ?Pap Test, Endocervix, [...] Report [facility] 11/10/2013 11/14/2013 Jeni Laird PARTITION MAKING MACHINE OPERATOR PATHOLOGY ORDERAB LES Performing Organization Address City/State/[facility] Co de Phone Number [facility] [address] [place] [address] documented in this encounter Visit Diagnoses Not on filedocumented in this encounter Care Teams Hand Printed Circuit Board Assembler Relationship Specialty Start Date End Date Ashley Chavez ARNP [address] [place] [address] PCP - General 07/11/10 documented as of this encounter
--- OUTSIDE RECORDS SUMMARY | 2024-03-16 14:07 | XMS_ITS | Encounter Summary ---
Author Organization [facility] [place] [address] Care Team Providers Care Research Dietitian Name Role Phone Magdalena Acosta MD Primary Care Provider [phone] Reason for Referral * Diagnostic Test (Routine) - New Request Specialty Diagnoses / Procedures Referred By Contac t Referred To Contact Cardiology Diagnoses S/P TAVR (transcatheter aortic valve replacement) Procedures Echocardiogram Transthoracic Antelmo Sharma MD [facility] [place] [address] [facility] [place] [address] Referral ID Status Reason Start Date Expiration Date Visits Requested Visits Authorized [id number] New Request Specialty Service Requested 12/16/2023 12/15/2024 1 1 Encounter Details Date Type Department Care Team (Late st Contact Info) Description 12/16/2023 Orders Only Cardiology at [address] [address] Antelmo Sharma MD [facility] [place] [address] S/P TAVR (transcatheter aortic valve [...] PM EDT Office Visit Dermatology at [place] [address] [place] [phone] Marek Bonilla MD [address] [place] [address] Scheduled Orders Name Type Priority Associated Diagnoses [...] replacement) documented in this encounter Care Teams Research Dietitian Relationship Specialty Start Date End Date Magdalena Acosta MD [address] [place] [address] PCP - General Family Medicine 02/05/23 documented as of this encounter
--- OUTSIDE RECORDS SUMMARY | 2024-03-16 14:07 | XMS_ITS | Encounter Summary ---
[place] [address] Care Team Providers Care Rolling Up Machine Operator Name Role Phone Magdalena Acosta MD Primary Care Provider [phone] Encounter Details Date Type Department Care Team [...] 4:15 PM EDT Office Visit Dermatology at [place] [address] [place] [address] Marek Bonilla MD [address], [place] A DERMATOLOGY [place], [place] [phone] documented as of this encounter Visit Diagnoses Not on filedocumented in this encounter Care Teams Rolling Up Machine Operator Relationship Specialty Start Date End Date Magdalena Acosta MD [address] [place] [address] PCP - General Family Medicine 02/05/23 documented as of this encounter
--- OUTSIDE RECORDS SUMMARY | 2024-03-16 14:07 | XMS_ITS | Encounter Summary ---
Author Organization [facility] [place] [address] Care Team Providers Care Fire Pilot Name Role Phone Magdalena Acosta MD Primary Care Provider [phone] Reason for Visit * Reason Comments Aortic Stenosis Coronary Artery Disease Hypertension Encounter Details Date Type Department Care Team (Latest Contact Info) Description 11/16/2023 11:40 AM EDT TH Visit (TeleHealth) Cardiology at [address] [address] Jay Maza PA [facility] [place] [address] Aortic valve stenosis, etiology of cardiac valve disease unspecified; Coronary artery disease, unspecified vessel or lesion type, unspecified whether angina present, unspecified whether shishmaref ira or transplanted heart Social History Tobacco Use [...] from the original note were not included. [facility] Interventional Cardiology CARDIOLOGY TELE VISIT NOTE 11/16/23 Patient: Purnima Thacker Prior to the initiation of our discussion, the risks and benefits of tele health visits were discussed, and the patient consented verbally to this being a virtual telehealth visit in lieu of an in person office visit. CARDIOLOGISTS: Antelmo Sharma MD ([facility] Cards) Maria Luz Mejia MD ([facility] Cards - [facility]) Problem List: Aortic [...] fraction I35.0 Mild coronary artery disease by [facility] 11/09/2022 I25.10 Heart failure with reduced [...] notable for coronary artery protection given low [id number] distance. There was no obstruction post Valve [...] leads Confirmed by MD Harshil, Haris Bell ([id number]) on 05/10/2023 8:11:46 AM Cardiac Cath 11/09/2022 [...] in one year. EKATERINA Thompson Time spent: [id number] 0-5min [id number] 6-10min 4770HFT9 11-15min x 8252TRV7 16-20min 6885JNT2 21-30min 4186XGS6 31-40min 5808WTY2 40+ min Jay Maza PA-C Interventional Cardiology [facility] Pager [phone] documented in this encounter Plan of Treatment Upcoming Encounters Date Type Department Care Team (Late st Contact Info) Description 03/01/2025 4:15 PM EDT Office Visit Dermatology at [address] [place] [address] Marek Bonilla MD [address], [place] [address] documented as of this encounter Visit Diagnoses Diagnosis Aortic valve stenosis, etiology of cardiac valve disease unspecified Coronary artery disease, unspecified vessel or lesion type, unspecified whether angina present, unspecified whether shishmaref ira or transplanted heart documented in this encounter Care Teams Fire Pilot Relationship Specialty Start Date End Date Magdalena Acosta MD [address] [place] [address] PCP - General Family Medicine 02/05/23 documented as of this encounter
--- OUTSIDE RECORDS SUMMARY | 2024-03-16 14:07 | XMS_ITS | Encounter Summary ---
Author Organization [facility] Address [address] [place] [address] Care Team Providers Care Land Surveyor Manager Name Role Phone Unavailable Primary Care Provider Unavailabl e Encounter Details Date Type Department Care Team (Late st Contact Info) Description 04/20/2005 Results Only [facility] - Maple conversion [address] [place] [address] Ziggy Valiente MD [address] [place] [phone] Social History Tobacco Use Types Packs/Day Years [...] ? 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 Accession #: ? [id number] ? : ? 1955 (Age: 49) ??F [...] correlation with endoscopic appearance is recommended. (Dr. Chino)/[facility] Document reviewed and electronically signed by: TYRON [...] is entirely submitted in one cassette. ??(Arabella Santos)/[facility] End of Report [facility] 04/20/2005 04/21/2005 15: 04 EDT Ziggy Valiente MD PATHOLOGY ORDERABLES [facility] [address] [place] [address] documented in this encounter Visit Diagnoses Not on filedocumented in this encounter
--- OUTSIDE RECORDS SUMMARY | 2024-03-16 14:07 | XMS_ITS | Encounter Summary ---
[place] [address] Care Team Providers Care Technology Risk Intern Name Role Phone Magdalena Acosta MD Primary Care Provider [phone] Encounter Details Date Type Department Care Team [...] 4:15 PM EDT Office Visit Dermatology at [place] [address] [place] [address] Marek Bonilla MD [address] [place] A DERMATOLOGY [place], [place] [phone] documented as of this encounter Visit Diagnoses Not on filedocumented in this encounter Care Teams Technology Risk Intern Relationship Specialty Start Date End Date Magdalena Acosta MD [address] [place] [address] PCP - General Family Medicine 02/05/23 documented as of this encounter
--- OUTSIDE RECORDS SUMMARY | 2024-03-16 14:07 | XMS_ITS | Encounter Summary ---
[place] [address] Care Team Providers Care Manager Asset Management Name Role Phone Magdalena Acosta MD Primary Care Provider [phone] Encounter Details Date Type Department Care Team [...] 4:15 PM EDT Office Visit Dermatology at [place] [address] [place] [address] Marek Bonilla MD [address], [place] DERMATOLOGY [place], [place] [phone] documented as of this encounter Visit Diagnoses Not on filedocumented in this encounter Care Teams Manager Asset Management Relationship Specialty Start Date End Date Magdalena Acosta MD [address] [place] [address] PCP - General Family Medicine 02/05/23 documented as of this encounter
--- OUTSIDE RECORDS SUMMARY | 2024-03-16 14:07 | XMS_ITS | Encounter Summary ---
Author Organization [facility] Address [address] [place] [address] Care Team Providers Care Nutrition Representative Name Role Phone Ashley Chavez Primary Care Provider [phone] Encounter Details Date Type Department Care Team (Late st Contact Info) Description 06/23/2016 Results Only [facility] [phone] Matthew Acevedo, DO [address] [facility] [place] [place] [address] [place] [address] Social History Tobacco Use Types Packs/Day [...] ? 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 Accession #: ? [id number] : ? 1955 (Age: 60) ??F ?Collect [...] ??400 ?? KARYOTYPE: 46,XX[25] End of Report [facility] 06/23/2016 06/24/2016 Matthew Acevedo DO PATHOLOGY ORDER JODIE [facility] [address] [place] [address] * FLOW CYTOMETRY (06/23/2016 0:00 EST) Pathology Report: FLOW CYTOMETRY REPORT Reports generated via electronic interface contain original data; however they are lacking the format of the original report. Caution should be taken when reading/interpreting unformatted reports. Name: ? 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 Accession #: ? [id number] : ? 1955 (Age: 60) ??F ?Collect Date: ? 06/23/2016 00:00 Location: ? [facility] ? Receive Date: ? 06/24/2016 08:00 Provider: ?MATTHEW ACEVEDO DO Copy to: ?WINTER HANKINS RETAIL BANKER MARIO ALBERTO RAMOS MD ? FINAL IMMUNOPHENOTYPIC INTERPRETATION: ? Bone marrow, flow cytometric analysis: -No immunophenotypic evidence of a clonal cell population. ??See comment. ? COMMENT: The results of flow cytometry show no immunophenotypic evidence of involvement by a clonal lymphoproliferative or myeloproliferative disorder. ??Correlation of these findings with morphologic and clinical data is essential. ??Please refer to pathology report number [id number] for morphologic details. ? Document reviewed and [...] the Department of Pathology and Laboratory Medicine, [place], [place] ??It has not been cleared or [...] clinical laboratory testing. End of Report ?? [facility] 06/23/2016 06/24/2016 8:0 0 EST Matthew Acevedo DO PATHOLOGY ORDER JODIE [facility] [address] [place] [address] * BONE MARROW/HEMPATH CONSULT (06/23/2016 0:00 EST) Pathology Report: BONE MARROW REPORT Reports generated via electronic interface contain original data; however they are lacking the format of the original report. Caution should be taken when reading/interpreting unformatted reports. Name: ? 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 Accession #: ? [id number] : ? 1955 (Age: 60) ??F ?Collect Date: ? 06/23/2016 Location: ? [facility] ? Receive Date: ? 06/24/2016 Provider: ? MATTHEW ACEVEDO DO Copy to: ?WINTER HANKINS RETAIL BANKER MARIO ALBERTO RAMOS MD ? DIAGNOSIS: Peripheral [...] #1: Aggregate biopsy length: 8 mm with livestock farmworker trabeculae of lamellar bone, cellular bone marrow, [...] SEE ABOVE DISCUSSION Lambda (polyclonal, Dako) ??(B1): Ozora (polyclonal, Dako) ??(B1): Biopsy (decalcified) #2: Aggregate biopsy length: 8 mm with livestock farmworker trabeculae of lamellar bone, cellular bone marrow, [...] (M115, Leica) ??(B2): Lambda (polyclonal, Dako) ??(B2): Ozora (polyclonal, Dako) ??(B2): NOTE: ??One or more [...] performance characteristics have been determined by [facility]. ??The positive and negative controls worked [...] ? 1% Blasts ?1% Special Studies Cytogenetics ([id number]): Pending. Flow Cytometry ([id number]): No immunophenotypic evidence of a clonal cell population. ? End of Report [facility] 06/23/2016 06/24/2016 Matthew Acevedo DO PATHOLOGY ORDER JODIE [facility] [address] [place] [address] documented in this encounter Visit Diagnoses Not on filedocumented in this encounter Care Teams Nutrition Representative Relationship Specialty Start Date End Date Ashley Chavez ARNP [address] [place] [address] PCP - General 07/11/10 documented as of this encounter
--- OUTSIDE RECORDS SUMMARY | 2024-03-16 14:07 | XMS_ITS | Encounter Summary ---
Author Organization [facility] [place] [address] Care Team Providers Care Sheet Metal Insulator Name Role Phone Magdalena Acosta MD Primary Care Provider [phone] Reason for Visit * Reason Comments Coronary Artery Disease Hypertension Aortic Stenosis Encounter Details Date Type Department Care Team (Latest Contact Info) Description 07/20/2023 4:40 PM EST TH Visit (TeleHealth) Cardiology at [address] [address] Jay Maza PA [facility] [place] [address] HFrEF (heart failure with reduced ejection fraction); [...] Maza PA - 07/20/2023 4:40 PM EST [facility] Interventional Cardiology [...] lieu of an in person office visit. Bolt Threader: Antelmo Sharma MD ([facility] Cards) Maria Luz Mejia MD ([facility] / [facility] cards) Problem List: : prior surgical [...] fraction I35.0 Mild coronary artery disease by [facility] 11/09/2022 I25.10 Heart failure with reduced [...] notable for coronary artery protection given low oeueg-bs-wgueacky distance. There was no obstruction post Valve deployment, but the stent could not be removed safely, so it was deployed. 4.0 mm x 30mm in left main. She was loaded on brilinta aka ticagrelor. Immediately post valve deployment, chest compressions to circulate central epinephrine which was administered given her hypotension, low LVEF, and low cardiac reserve. Next, the patient was transferred to [facility] for pressor and inotropic support. [...] arms and wrists. Successful right transfemoral TAVR Fzrgi-qn-Vrjpo with a 23 mm Lai 3 THV. [...] leads Confirmed by MD Harshil, Haris Bell ([id number]) on 05/10/2023 8:11:46 AM Cardiac Cath 11/09/2022 [...] in chart review and direct patient contact. [id number] 0-5min [id number] 6-10min 8172RIQ4 11-15min 8443DEQ8 16-20min x [id number] 21-30min 7939CJY9 31-40min 2437HQX3 40+ min Jay Maza PA-C Interventional Cardiology [facility] Pager [phone] documented in this encounter Plan of Treatment Upcoming Encounters Date Type Department Care Team (Late st Contact Info) Description 03/01/2025 4:15 PM EDT Office Visit Dermatology at [place] [address] [place] [address] Marek Bonilla MD [address] [place] [address] documented as of this encounter Visit Diagnoses Diagnosis HFrEF (heart failure with reduced ejection fraction) Hypertension, unspecified type Aortic valve stenosis, etiology of cardiac valve disease unspecified documented in this encounter Care Teams Sheet Metal Insulator Relationship Specialty Start Date End Date Magdalena Acosta MD [address] [place] [address] PCP - General Family Medicine 02/05/23 documented as of this encounter
--- OUTSIDE RECORDS SUMMARY | 2024-03-16 14:07 | XMS_ITS | Encounter Summary ---
Author Organization [facility] [place] [address] Care Team Providers Care Senior Materials Planner Name Role Phone Magdalena Acosta MD Primary Care Provider [phone] Encounter Details Date Type Department Care Team (Late st Contact Info) Description 07/08/2023 10:15 AM EST Office Visit Cardiology at [address] [phone] Severe aortic stenosis Social History Tobacco Use [...] 4:15 PM EDT Office Visit Dermatology at [place] [address] [place] [address] Marek Bonilla MD [address], [place] [address] documented as of this encounter Procedures Procedure [...] (Bezet) 449 ms MUSE SYSTEM Calculated P Douglass 66 degrees MUSE SYSTEM Calculated R Douglass 60 degrees MUSE SYSTEM Calculated T Douglass 53 degrees MUSE SYSTEM INTERPRETATION Normal sinus rhythm Minimal voltage criteria for LVH, may be normal variant ( Sokolow-Orozco ) ST & T wave abnormality, consider lateral ischemia ??vs. repolarization abnormality from LVH Abnormal ECG When compared with ECG of 13-MAY-2023 09:22, Premature ventricular complexes are no longer Present Minimal criteria for Septal infarct are no longer Present Confirmed by Maxx Best ([id number]) on 07/09/2023 10:07:22 AM MUSE SYSTEM 07/08/2023 10:2 7 AM EST 07/09/2023 10:07 AM EST Brody Kaplan APRN ECG ORDERABLES MUSE SYSTEM documented in this encounter Visit Diagnoses Diagnosis Severe aortic stenosis Aortic valve disorders documented in this encounter Care Teams Senior Materials Planner Relationship Specialty Start Date End Date Magdalena Acosta MD [address] [place] [address] PCP - General Family Medicine 02/05/23 documented as of this encounter
--- OUTSIDE RECORDS SUMMARY | 2024-03-16 14:07 | XMS_ITS | Encounter Summary ---
Author Organization [facility] [place] [address] Care Team Providers Care Wedding Decorator Name Role Phone Magdalena Acosta MD Primary Care Provider [phone] Encounter Details Date Type Department Care Team (Late st Contact Info) Description 12/02/2023 11:15 AM EDT [place] [address] Magdalena Peralta MD [facility] [place] [address] Mixed connective tissue disease Social History Tobacco [...] 1:5120 speckled; VIC negative; Myositis panel with AIRCRAFT MAINTENANCE ENGINEER ab 149.1 (positive); Anti U1RNP IgG 119; [...] list of questions that she sent via [facility] ahead of her visit, which we [...] exposure. She has an appointment with her Junior Art Director scheduled in January. (Dr Bonilla in [place]) ROS (positives in bold): Gen: no fevers, [...] but I encouraged her to contact her Junior Art Director to see if she could have her [...] Dr. Tanisha Peralta MD Rheumatology Fellow Pager: [phone] * Federico Yee MD - 12/02/2023 11:15 [...] 4:15 PM EDT Office Visit Dermatology at [place] [address] [place] [address] Marek Bonilla MD [address] [facility] [place] [place] [address] Scheduled Orders Name Type Priority Associated Diagnoses Orde r Schedule EKG 12 Lead ECG Routine Mixed connective tissue disease Expected: 12/02/2023, Expires: 06/03/2024 documented as of this encounter Visit Diagnoses Diagnosis Mixed connective tissue disease Other specified diffuse disease of connective tissue documented in this encounter Care Teams Wedding Decorator Relationship Specialty Start Date End Date Magdalena Acosta MD [address] [place] [address] PCP - General Family Medicine 02/05/23 documented as of this encounter
--- OUTSIDE RECORDS SUMMARY | 2024-03-16 14:07 | XMS_ITS | Encounter Summary ---
[place] [address] Care Team Providers Care Audiometric Technician Name Role Phone Magdalena Acosta MD Primary Care Provider [phone] Encounter Details Date Type Department Care Team (Latest Contact Info) Description 07/08/2023 12:35 PM EST Laboratory Appointment Lab [address] [place] [address] S/P TAVR (transcatheter aortic valve [...] 4:15 PM EDT Office Visit Dermatology at [place] [address] [place] [phone] Marek Bonilla MD [address], [address] [place] [address] (work) documented as of this encounter Procedures [...] 11:56 AM EST) Neutrophil % 73.2 % [facility] Neutrophil Absolute 3.40 1.70 - 6.10 x10(3)/mc L [facility] Lymph % 16.1 % [facility] Lymphocytes Abs 0.8(L) 0.9 - 3.2 x10(3)/mc L [facility] Monocyte % 9.7 % [facility] Monocyte Abs 0.4 0.3 - 0.9 x10(3)/mc L [facility] Eos % 0.4 % [facility] Eosinophils Abs 0.0 0.0 - 0.4 x10(3)/mc L [facility] Basophil % 0.4 % [facility] Baso Absolute 0.0 0.0 - 0.1 [...] S [facility] [place] [address] * (ABNORMAL) Hemogram (07/08/2023 11:56 AM EST) [...] [facility] NRBC% auto 0.0 % [facility] NRBC Absolute 0.000 0.000 - 0.000 x10(3)/mc L [facility] Blood 07/08/2023 11:5 6 AM EST 07/08/2023 12:02 PM EST Narrative Resulting Agency Comment Spec In Lab Minh TOBAR HEMATOLOGY ORDERABLE S [facility] [place] [address] * (ABNORMAL) Comprehensive metabolic panel (non-fasting) (07/08/2023 [...] S [facility] [place] [address] documented in this encounter Visit Diagnoses Diagnosis S/P TAVR (transcatheter aortic valve replacement) Severe aortic stenosis Aortic valve disorders documented in this encounter Care Teams Audiometric Technician Relationship Specialty Start Date End Date Magdalena Acosta MD [address] [place] [address] PCP - General Family Medicine 02/05/23 documented as of this encounter
--- OUTSIDE RECORDS SUMMARY | 2024-03-16 14:07 | XMS_ITS | Encounter Summary ---
[place] [address] Care Team Providers Care Seismographer Name Role Phone Magdalena Acosta MD Primary Care Provider [phone] Reason for Visit * Reason Onset Date Comments Pre Procedure Call 03/01/2024 DAPT hold for EGD and colo? Encounter Details Date Type Department Care Team (Late st Contact Info) Description 03/01/2024 Telephone Cardiology at [address] [phone] Cynthia Monsalve RN Pre Procedure Call (DAPT hold for EGD and colo?) Social History Tobacco Use Types Packs/Day Years Used Date Smoking Tobacco: Never Smokeless Tobacco: Never Alcohol Use Standard Drinks/Week Comments No 0 (1 standard drink = 0.6 oz pur e alcohol) none [facility] Inpatient Questions Answer Date Recorded Does Anyone [...] safe. Jay Message above left with Yenifer (mate relief), who would be leaving this note in patient's chart for providers to schedule patient. No further questions or needs at this time. This nurse stated, note will be placed regarding this call in our chart for patient. Kezia Whitney RN, BSN Ambulatory Cardiology Clinic, [facility] [phone] * Telephone Encounter - Cynthia Monsalve RN - 03/01/2024 2:09 PM EDT Nurse Veronica from [facility] called, requesting a hold on ASA and/or Plavix for the patient's anticipated EGD and colonoscopy. -Cynthia Monsalve RN documented in this encounter Plan of Treatment Upcoming Encounters Date Type Department Care Team (Late st Contact Info) Description 03/01/2025 4:15 PM EDT Office Visit Dermatology at [place] [address] [place] [address] Marek Bonilla MD [address], [place] [address] documented as of this encounter Visit Diagnoses Not on filedocumented in this encounter Care Teams Seismographer Relationship Specialty Start Date End Date Magdalena Acosta MD [address] [place] [address] PCP - General Family Medicine 02/05/23 documented as of this encounter
--- OUTSIDE RECORDS SUMMARY | 2024-03-16 14:07 | XMS_ITS | Encounter Summary ---
Author Organization [facility] [place] [address] Care Team Providers Care Dining Car Waiter/Waitress Name Role Phone Magdalena Acosta MD Primary Care Provider [phone] Encounter Details Date Type Department Care Team (Late st Contact Info) Description 07/29/2023 11:00 AM EST Office [place] [address] Magdalena Peralta MD [facility] [place] [address] Mixed connective tissue disease Social History Tobacco [...] 1:5120 speckled; VIC negative; Myositis panel with MAKING MACHINE OPERATOR ab 149.1 (positive); Anti U1RNP [...] was seen and discussed with Dr. Viramontes. Magdalnea Peralta MD Rheumatology Fellow Pager: [phone] * Kia Viramontes DO - 07/29/2023 11:00 AM EST ATTENDING ADDENDUM The patient's history was reviewed, and I interviewed and examined the patient with Dr. Peralta I agree with her summary, findings, and plan. documented in this encounter Plan of Treatment Upcoming Encounters Date Type Department Care Team (Late st Contact Info) Description 03/01/2025 4:15 PM EDT Office Visit Dermatology at [place] [address] [place] [address] Marek Bonilla MD [address] [facility], [place] [address] documented as of this encounter Results * [...] PFT FEV1/FVC Pre-BD Z-Score 0 COMPAS PFT GWE73-68 Actual Pre-BD 2.41 % COMPAS PFT BOI25-02 Predicted 1.8 % COMPAS PFT ASP68-08 Pre-BD % of Predicted 134 % COMPAS PFT NLR78-68 Pre-BD Z-Score 0.81 COMPAS PFT DLCO Hb [...] tissue documented in this encounter Care Teams Dining Car Waiter/Waitress Relationship Specialty Start Date End Date Magdalena Acosta MD [address] [place] [address] PCP - General Family Medicine 02/05/23 documented as of this encounter
--- OUTSIDE RECORDS SUMMARY | 2024-03-16 14:07 | XMS_ITS | Encounter Summary ---
[place] [address] Care Team Providers Care Catering Assistant Name Role Phone Magdalena Acosta MD Primary Care Provider [phone] Encounter Details Date Type Department Care Team [...] EDT Office Visit Dermatology at [place] [address] [place] [address] Marek Bonilla MD [address] TODD A DERMATOLOGY [place], [place] [address] documented as of this encounter Visit Diagnoses Not on filedocumented in this encounter Care Teams Catering Assistant Relationship Specialty Start Date End Date Magdalena Acosta MD [address] [place] [address] PCP - General Family Medicine 02/05/23 documented as of this encounter
--- OUTSIDE RECORDS SUMMARY | 2024-03-16 14:07 | XMS_ITS | Encounter Summary ---
[place] [address] Care Team Providers Care Director Of Casino Marketing Name Role Phone Magdalena Acosta MD Primary Care Provider [phone] Encounter Details Date Type Department Care Team (Latest Contact Info) Description 10/05/2023 10:52 AM EST - 10/05/2023 11:59 PM [facility] Hospital [place] [address] Mixed connective tissue disease Discharge Disposition: Home Social History Tobacco Use Types Packs/Day Years Used Date Smoking Tobacco: Never Smokeless Tobacco: Never Alcohol Use Standard Drinks/Week Comments No 0 (1 standard drink = 0.6 oz pur e alcohol) none [facility] Inpatient Questions Answer Date Recorded Does [...] 4:15 PM EDT Office Visit Dermatology at [place] [address] [place] [address] Marek Bonilla MD [address], [place] [address] documented as of this encounter Procedures Procedure [...] PFT FEV1/FVC Pre-BD Z-Score 0 COMPAS PFT DWE08-50 Actual Pre-BD 2.41 % COMPAS PFT RHS48-84 Predicted 1.8 % COMPAS PFT AUR19-48 Pre-BD % of Predicted 134 % COMPAS PFT SGL92-46 Pre-BD Z-Score 0.81 COMPAS PFT DLCO Hb [...] tissue documented in this encounter Care Teams Director Of Casino Marketing Relationship Specialty Start Date End Date Magdalena Acosta MD [address] [place] [address] PCP - General Family Medicine 02/05/23 documented as of this encounter
--- OUTSIDE RECORDS SUMMARY | 2024-03-16 14:07 | XMS_ITS | Encounter Summary ---
[place] [address] Care Team Providers Care Senior Engineering Tech Name Role Phone Magdalena Acosta MD Primary Care Provider [phone] Encounter Details Date Type Department Care Team [...] 4:15 PM EDT Office Visit Dermatology at [place] [address] [place] [address] Marek Bonilla MD [address], [address] A DERMATOLOGY [place], [place] [address] documented as of this encounter Visit Diagnoses Not on filedocumented in this encounter Care Teams Senior Engineering Tech Relationship Specialty Start Date End Date Magdalena Acosta MD [address] [place] [address] PCP - General Family Medicine 02/05/23 documented as of this encounter
[2024-03-16 14:08] VITALS: BP 108/58; PULSE 75
--- OUTSIDE RECORDS SUMMARY | 2024-03-16 14:08 | XMS_ITS | Encounter Summary ---
Author Organization [place] [id number] Care Team Providers Care Hydro Excavation Operator Name Role Phone Magdalena Acosta MD Primary Care Provider [phone] Reason for Visit * Auth/Cert (Routine) Specialty Diagnoses / Procedures Referred By Contac t Referred To Contact Diagnoses Symptomatic severe aortic stenosis with low ejection fraction NSTEMI, CHF Haris Chua MD [facility] [place] [address] [facility] Referral ID Status Reason Start Date Expiration Date Visits Re quested Visits Authorized [id number] 1 1 Encounter Details Date Type Department Care Team (Late st Contact Info) Description 05/12/2023 7:35 AM EDT Anesthesia Event [place] [address] Lynda Mcgowan MD [facility] [place] [address] Alie Park MD [facility] [place] [address] Anesthesia Record Procedure Summary Procedure Name Responsible [...] cephalic vein (lateral side of arm), left; zdef-uxi-jbkibg catheter system; Anatomical Landmarks; US Not Used; [...] RN LDA Cath/EP Sheath 05/12/23; 0733; 14 [place] (Fr); Right; Femoral; Arterial 05/12/23 0733 by Guerda Bender, RN 05/12/23 0830 by Guerda Bender RN LDA Cath/EP Sheath 05/12/23; 0734; 6 [place] (Fr); Right; Femoral; Venous 05/12/23 0734 by Guerda Bender RN 05/12/23 0817 by Guerda Bender RN LDA Cath/EP Sheath 05/12/23; 0734; 7 [place] (Fr); Left; Femoral; Arterial 05/12/23 0734 by Guerda Bender, RN 05/12/23 0837 by Guerda Bender RN LDA Cath/EP Sheath 05/12/23; 0734; 6 [place] (Fr); Left; Femoral; Venous 05/12/23 0734 by [...] Procedure Summary Date: 05/12/23 Room / Location: [facility] / [facility] CATH LABS Anesthesia Start: 734 Anesthesia Stop: [...] All Anesthesia Providers: Anesthesiologist: Lynda Mcgowan MD Radio Board Operator Announcer: Nico Graham MD Vitals Value Taken Time [...] 05/08/2023 ??? Mild coronary artery disease by [facility] 11/09/2022 05/08/2023 ??? Heart failure [...] IMG S&I N/A 11/09/2022 CORONARY ANGIOGRAPHY; W [facility],POSSIBLE PCI (WRVU 5.6) performed by Nitesh Escobedo MD at [facility] CATH LABS ??? PRO AORTOPLAS FOR SUPRAVALV STEN N/A 09/21/2016 @AORTOPLASTY FOR SUPRAVALVULAR STENOSIS (WRVU 29.33) performed by Alirio Esparza MD at [facility] MAIN OR ??? PRO REPLACEMENT PROSTHETIC AORTIC VALVE OPEN W CARDIOPULMONARY BYPASS HOMOGRF/STENT N/A 09/21/2016 @REPLACE AORTIC VALVE, OPEN, W\CPB, W\PROSTHETIC VALVE (WRVU 41.32) performed by Alirio Esparza MD at [facility] MAIN OR Social History Tobacco Use ??? [...] 3 general, with a(n) intravenous induction Add-on rnbet-mb-ykomd TAVR. In cardiogenic shock. Has arterial line, [...] PM EDT Office Visit Dermatology at [place] [address] [place] [address] Marek Bonilla MD [address], [place] [address] documented as of this encounter Visit Diagnoses [...] mL/hr documented in this encounter Care Teams Hydro Excavation Operator Relationship Specialty Start Date End Date Magdalena Acosta MD [address] [place] [address] PCP - General Family Medicine 02/05/23 documented as of this encounter
--- OUTSIDE RECORDS SUMMARY | 2024-03-16 14:08 | XMS_ITS | Encounter Summary ---
[place] [address] Care Team Providers Care Auxiliary Plant Operator Name Role Phone Magdalena Acosta MD Primary Care Provider [phone] Encounter Details Date Type Department Care Team [...] EDT Office Visit [facility] [place] [address] [place] [address] Marek Bonilla MD [address], TOD[facility] DERMATOLOGY [place], [place] [id number] documented as of this encounter Visit Diagnoses Not on filedocumented in this encounter Care Teams Auxiliary Plant Operator Relationship Specialty Start Date End Date Magdalena Acosta MD [address] [place] [address] PCP - General Family Medicine 02/05/23 documented as of this encounter
--- OUTSIDE RECORDS SUMMARY | 2024-03-16 14:08 | XMS_ITS | Encounter Summary ---
Author Organization [facility] Address [facility] [place] [address] Care Team Providers Care Paper Products Inspector Name Role Phone Magdalena Acosta MD Primary Care Provider [phone] Reason for Referral * Diagnostic Test (Routine) - Closed Specialty Diagnoses / Procedures Referred By Contac t Referred To Contact Cardiology Diagnoses S/P TAVR (transcatheter aortic valve replacement) Procedures Echocardiogram Transthoracic Vinod Juárez PA [facility] [place] [address] [facility] [place] [address] Referral ID Status Reason Start Date Expiration Date V isits Requested Visits Authorized [id number] Closed Specialty Service Requested 05/22/2023 05/21/2024 1 1 * Home Health Care (Routine) - Closed Specialty Diagnoses / Procedures Referred By Contac t Referred To Contact Diagnoses S/P TAVR (transcatheter aortic valve replacement) Alirio Hudson MD [facility] CARDIOTHORACIC SURGERY [address] [facility] & [address] [place] [address] Referral ID Status Reason Start Date Expiration Date V isits Requested Visits Authorized [id number] Closed Consult, Test & Treat 05/22/2023 11/18/2023 999 999 * Consultation (Routine) - Closed Specialty Diagnoses / Procedures Referred By Crispin maxwell Referred To Contact Cardiology Diagnoses S/P TAVR (transcatheter aortic valve replacement) Alirio Hudson MD [facility] [place] [address] Cardiac Rehab, [address] [place] [address] Referral ID Status Reason Start Date Expiration Date V isits Requested Visits Authorized [id number] Closed Consult, Test & Treat 05/22/2023 11/18/2023 36 36 * Diagnostic Test (Routine) - Closed Specialty Diagnoses / Procedures Referred By Crispin maxwell Referred To Contact Cardiology Diagnoses Aortic valve stenosis, etiology of cardiac valve disease unspecified Procedures Echocardiogram Transthoracic Transesophageal Echocardiogram (YUSRA) Radha Hollins MD [facility] [place] [address] [facility] [place] [address] Referral ID Status Reason Start Date Expiration Date V isits Requested Visits Authorized [id number] Closed Specialty Service Requested 05/11/2023 05/10/2024 1 1 Reason for Visit * Auth/Cert (Routine) Specialty Diagnoses / Procedures Referred By Crispin maxwell Referred To Contact Diagnoses Symptomatic severe aortic stenosis with low ejection fraction NSTEMI, CHF Enrique Chua MD [facility] [place] [address] [facility] Referral ID Status Reason Start Date Expiration Date Visits Re quested Visits Authorized [id number] 1 1 Encounter Details Date Type Department Care Team (Latest Contact Info) Description 05/08/2023 9:14 AM EDT - 05/22/2023 10:46 AM EDT Hospital Encounter Heart and Vascular Unit Level 4 [place] [address] Enrique Chua MD [facility] [place] [address] Juan Luis Gonzalez MD [facility] [place] [address] Radha Hollins MD [facility] [place] [address] Alirio Hudson MD S/P TAVR (transcatheter aortic valve replacement) (Primary Dx); Aortic valve stenosis, etiology of cardiac valve disease unspecified; Symptomatic severe aortic stenosis with low ejection fraction; Heart failure with reduced ejection fraction due to heart valve disease; Mild coronary artery disease by [facility] 11/09/2022; Mixed connective tissue disease; [...] Patient Age: 67 y.o. Birthdate: 1955 Language: Macedonian Race: White Ethnicity: Not nor Admit Date: 05/08/2023 Discharge Date: 05/22/2023 Attending Physician: Alirio Hudson MD Follow-up Recommendations for Providers: Please continue routine management of cardiovascular risk factors including blood pressure, lipids,glucose, etc. Please note any medication changes. Patient to follow up with PCP, Magdalena Acosta MD, or Primary Supervisor Shuttle Preparation, Avis Mejia MD, in ~ 7-10 days. Patient to follow up with Fisher Oyster, Dr. Antelmo Sharma, in 2 weeks with an EKG, Echo, CBC, and CMP. Patient to follow up with Nephrology, their office to arrange. Mswo-Qlkyqi-mm interval: After initial 30 day follow-up appointment , all TAVR patients will follow-up again in one year with an echo. 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 Secondary Diagnoses: Active Hospital Problems Diagnosis S/P TAVR (transcatheter aortic valve replacement) Cardiogenic shock Symptomatic severe aortic stenosis with low ejection fraction Mild coronary artery disease by [facility] 11/09/2022 Heart failure with reduced [...] Tube Placement Right 05/18/2023 Laure Ricks PA [facility] INTERVENTIONL RAD PRG CATH PLMT LEFT HEART CATH & ARTS W/INJ & ANGIO IMG S&I N/A 11/09/2022 CORONARY ANGIOGRAPHY; W [facility],POSSIBLE PCI (WRVU 5.6) performed by Mario Alberto Escobedo MD at [facility] CATH LABS PRG COMBINED RIGHT & LEFT HEART CATH W/INJ L VENTRICULOGRAPHY, IMG S&I N/A 05/12/2023 COMBINED RIGHT & LEFT HEART CATH,INC INJ FOR L VENTRICULOGRAPHY (WRVU 5.99) performed by Antelmo Sharma MD at [facility] CATH LABS PRO AORTOPLAS FOR SUPRAVALV STEN N/A 09/21/2016 @AORTOPLASTY FOR SUPRAVALVULAR STENOSIS (WRVU 29.33) performed by Alirio Hudson MD at [facility] MAIN OR PRO REPLACE AORTIC VALVE (TAVR/FEDERICO)PERC FEMORAL ARTERY APPROACH 05/12/2023 @TRANSCATHETER AORTIC VALVE REPLACEMENT (TAVR), PERCUTANEOUS FEMORAL (WRVU 22.47) performed by Alirio Hudson MD at [facility] CATH LABS PRO REPLACEMENT PROSTHETIC AORTIC VALVE OPEN W CARDIOPULMONARY BYPASS HOMOGRF/STENT N/A 09/21/2016 @REPLACE AORTIC VALVE, OPEN, W\CPB, W\PROSTHETIC VALVE (WRVU 41.32) performed by Alirio Hudson MD at [facility] MAIN OR Prior To Admission Medications [...] when experiencing pain .). 30 tablet 5 Unknown spironolactone (ALDACTONE) 25 [...] Major Procedures/Operations: 05/12/23: Successful right transfemoral TAVR Afgvg-zm-Zrnjt with a 23 mm Lai 3 THV. Left coronary protection with left main MINNA. Hospital Course: #Severe prosthetic s/p valve in valve TF TAVR #Low coronary heights s/p left main stent for coronary protection #Type 2 NSTEMI, present on arrival, resolved #Acute decompensated HFrEF #Cardiogenic shock #EVANS / Cardiorenal syndrome Purnima Thacker was admitted to [facility] on 05/08/2023 via the Cardiology Service [...] TAVR and she was brought to the photo lab manager the following morning where Drs. Alirio [...] if you have questions. Please call your Fisher Oyster's office if you have any discharge or drainage from your procedural sites. Your Fisher Oyster, Dr. Antelmo Sharma and/or the Cured Meats Supervisor may be reached at . Antibiotic prophylaxis: You will need to take antibiotics prior to many invasive tests and treatments, such as dental cleaning, which should be done every 6 months. Your primary care physician or your dentist can prescribe this medication. Please refer to the card with the [place] [employer] Guidelines for more information. You have been provided with a copy of this card. Please refer to the [place] [employer] Guidelines for more information. Good [...] should resume a low fat, low cholesterol, [place] [employer] Diet Driving: No restrictions. Shower/Bath: You may shower daily. No baths, soaking, or swimming for the first week. Wound care: Wash the sites daily with soap and rinse well, pat dry. Assess for any signs of infection such as increased redness, pain, warmth or drainage. Please call your crusher machine operator's office if you have any discharge or drainage from your procedural sites. If there is a lot of swelling, apply mamta wraps during the day and remove at bedtime. Elevate your legs when you are sitting. Home oxygen therapy: N/A Follow up appointments: Please schedule a follow-up appointment with your PCP, Magdalena Acosta MD, or Primary Supervisor Shuttle Preparation in ~ 7-10 days. You have a follow-up appointment with your Fisher Oyster, Dr. Antelmo Sharma, in 2 weeks with an EKG, Echo, and labs prior to your appointment. You will need follow-up with Nephrology, their office will arrange. Ejzf-Bfgvhl-ey interval: After initial 30 day follow-up appointment , all TAVR patients will follow-up again in one year with an echo. Cardiac Rehabilitation: Purnima Thacker was seen today regarding participation in the outpatient Phase 2 Cardiac Rehabilitation at [facility]. The patient agrees to a referral to this program. The referral will be sent at discharge and the patient should be contacted by the Program within 1- 2 weeks from discharge. Future Appointments and Orders Future Appointments and Orders Future Appointments Provider Department Dept Phone 07/29/2023 11:00 AM Magdalena Peralta MD Rheumatology at [facility] Arrive at: Police [facility] Area [facility] [phone] 02/11/2024 2:00 PM Marek Bonilla MD Dermatology at [place] Arrive at: [facility] [address] [phone] Future Orders Complete By Expires Type and Screen Future Surgery, [facility] SAME DAY PROGRAM ONLY) [[id number] Custom] 05/11/2023 Process Instructions: This test is intended ONLY for patients with upcoming surgery for testing prior to the day of surgery obtained through the same day program (4V or SDP). For ALL OTHER PATIENTS, order a Type and Screen ([id number]) This order includes the physician order for an ABO Recheck if requested by the Blood Bank. Scheduling Instructions: Comments: Questions: Date of surgery: CBC (with Diff) [TII096 Custom] 06/05/2023 12/05/2023 Process Instructions: INCLUDES: WBC, RBC, Hgb, Hct, Platelets, RBC Indices and Differential Scheduling Instructions: Comments: Questions: Comprehensive metabolic panel (non-fasting) [LAB17 Custom] 06/05/2023 08/20/2023 Process Instructions: INCLUDES: Calcium, T Protein, Albumin, AST, ALT, Alk Phos, T Bili, BUN, Creat, GFR, Glucose, Lytes. Scheduling Instructions: Comments: Questions: Echocardiogram Transthoracic [69560 CPT(R)] 06/05/2023 12/05/2023 Process Instructions: Scheduling Instructions: Questions: Where will study be performed?: [facility] Clinics Does the patient have Congenital Heart Disease?: Does patient require sedation?: GA rationale: EKG 12 Lead [66500 CPT(R)] 06/05/2023 12/05/2023 Process Instructions: Scheduling Instructions: Questions: Which location will this be performed?: [place] Is a rhythm strip needed?: No [facility] Devices [EQ161 Custom] As directed Process Instructions: Scheduling Instructions: Questions: Device Needed: WALKER (E0143) Patient Height (cm): 154.9 cm (5' 0.98) Patient Weight: 75.4 kg (166 lb 3.2 oz) Diagnosis: Unsteady gait when walking Referral to Cardiac Rehab [AUR019 Custom] As directed Process Instructions: If no progress note charted, please enter Clinical details in comments. Scheduling Instructions: Questions: My question or request is: s/p TAVR. Cardiac rehab at [facility]. Referral to Home Health [REF34 Custom] As directed Process Instructions: If no progress note charted, please enter Clinical details in comments. Scheduling Instructions: Comments: DOCUMENTATION FOR VNA SERVICES PATIENT'S LOCATION: Purnima Thacker [address] [place] [phone] (home) Seed Corn Manager Production's Name: Self and brother Raymond In discussion with the attending physician, it is certified that this patient is under his/her careand that MD, or an PROCED TECH, INSTRUMENT CHECKER, or PA who is working directly with him/her, had a hvjy-dv-mrew encounter that meets the physician dotz-ng-xlep encounter requirements with this patient on 05/22/2023. [...] for managing ADLs. HOME HEALTH CARE AGENCY: [facility]. [address] [place] [address] PHONE: [phone] FAX: [phone] Start of care: Ideally 24-48 hours after [...] Magdalena Acosta MD [address] / [facility] [address] All VNA agencies which cover the area of patient's residence have been reviewed, either verbally joao writing, and patient has chosen the home health care agency noted. Questions: Disciplines Requested: Physical Therapy Occupational Therapy Discharge References/Attachments None Arrangements for VNA/home care: As above. (delete if no VNA) Signed: EKATERINA NAVARRETE [facility] Section of Cardiac Surgery Date: 05/22/2023 CC: Magdalena Acosta MD StockwellMario Alberto MD [address] [place] [address] documented in this encounter Discharge Instructions * Patient Instructions* Vinod Juárez PA - 05/22/2023 9:32 AM EDT TAVR Discharge Instructions: Call your doctor if: You have a fever of greater than 101 degrees, shaking chills, if you develop redness or drainage from your procedure sites, or if you have questions. Please call your Fisher Oyster's office if you have any discharge or drainage from your procedural sites. Your Fisher Oyster, Dr. Antelmo Sharma and/or the Cured Meats Supervisor may be reached at . Antibiotic prophylaxis: You will need to take antibiotics prior to many invasive tests and treatments, such as dental cleaning, which should be done every 6 months. Your primary care physician or your dentist can prescribe this medication. Please refer to the card with the [place] [employer] Guidelines for more information. You have been provided with a copy of this card. Please refer to the [place] [employer] Guidelines for more information. Good [...] should resume a low fat, low cholesterol, [place] Diet Driving: No restrictions. Shower/Bath: You may shower daily. No baths, soaking, or swimming for the first week. Wound care: Wash the sites daily with soap and rinse well, pat dry. Assess for any signs of infection such as increased redness, pain, warmth or drainage. Please call your crusher machine operator's office if you have any discharge or drainage from your procedural sites. If there is a lot of swelling, apply mamta wraps during the day and remove at bedtime. Elevate your legs when you are sitting. Home oxygen therapy: N/A Follow up appointments: Please schedule a follow-up appointment with your PCP, Magdalena Acosta MD, or Primary Supervisor Shuttle Preparation in ~ 7-10 days. You have a follow-up appointment with your Fisher Oyster, Dr. Antelmo Sharma, in 2 weeks with an EKG, Echo, and labs prior to your appointment. You will need follow-up with Nephrology, their office will arrange. Hicp-Vxmgnt-na interval: After initial 30 day follow-up appointment , all TAVR patients will follow-up again in one year with an echo. Cardiac Rehabilitation: Purnima Thacker was seen today regarding participation in the outpatient Phase 2 Cardiac Rehabilitation at [facility]. The patient agrees to a referral to [...] home d/c with supervision. Pt's friend arriving Tues and pt to call her Brother to [...] ins ( tef) Haven Ba, PT Pager: [phone] Physical Therapy Inpatient Rehabilitation Department * Nico [...] d/t cardiogenic shock. S/p right pigtail, removed 10/18. Oxy prn. Hold NSAIDS given recent EVANS Disposition: Floor Status, Full Code, looking at rehab options Discussed with attending surgeon on rounds this morning. EKATERINA KIM 05/21/2023 Between the hours of 1800 - 0600 and on the weekends please page [phone]. * Jory Paniagua - 05/20/2023 3:52 PM [...] vomiting Last Bowel Movement: 05/20/23 Jory Paniagua Quality Systems Technician * Rashid Tong, OT - 05/20/2023 3:16 PM EDT Occupational [...] Tube Placement Right 05/18/2023 Laure Ricks PA [facility] INTERVENTIONL RAD PRG CATH PLMT LEFT HEART CATH & ARTS W/INJ & ANGIO IMG S&I N/A 11/09/2022 CORONARY ANGIOGRAPHY; W [facility],POSSIBLE PCI (WRVU 5.6) performed by Mario Alberto Escobedo MD at [facility] CATH LABS PRG COMBINED RIGHT & LEFT HEART CATH W/INJ L VENTRICULOGRAPHY, IMG S&I N/A 05/12/2023 COMBINED RIGHT & LEFT HEART CATH,INC INJ FOR L VENTRICULOGRAPHY (WRVU 5.99) performed by Antelmo Sharma MD at [facility] CATH LABS PRO AORTOPLAS FOR SUPRAVALV STEN N/A 09/21/2016 @AORTOPLASTY FOR SUPRAVALVULAR STENOSIS (WRVU 29.33) performed by Alirio Hudson MD at [facility] MAIN OR PRO REPLACE AORTIC VALVE (TAVR/FEDERICO)PERC FEMORAL ARTERY APPROACH 05/12/2023 @TRANSCATHETER AORTIC VALVE REPLACEMENT (TAVR), PERCUTANEOUS FEMORAL (WRVU 22.47) performed by Alirio Hudson MD at [facility] CATH LABS PRO REPLACEMENT PROSTHETIC AORTIC VALVE OPEN W CARDIOPULMONARY BYPASS HOMOGRF/STENT N/A 09/21/2016 @REPLACE AORTIC VALVE, OPEN, W\CPB, W\PROSTHETIC VALVE (WRVU 41.32) performed by Alirio Hudson MD at [facility] MAIN OR Social History: Patient lives alone. Home Setup: Pt lives on one level with tub shower and three steps to enter. DME: none used AEROSPACE MEDICINE PHYSICIAN Baseline ADL/Mobility: Independent with ADLs and IADLs. [...] WFL Vision & Perception: corrective lenses time lock expert Communication: WFL Range of motion, strength, coordination: [...] has been seen for occupational therapy evaluation. Purnimakary Thacker presents with the following performance skill [...] Discharge Disposition (OT): [facility], [place] [facility](vs home with support for IADLs) Other [...] Discharge planning. Total Minutes, Occupational Therapy: 28 ([phone]) OT Evaluation Code Rationale: Diagnosis & Pertinent Co-Morbidities affecting Plan of Care: see PMHx Occupational Profile & Client History: Brief Expanded Extensive x Assessment of Occupational Performance: 1-3 performance deficits 3-5 performance deficits x 5 + performance deficits Clinical Decision Making: Low Moderate High x Clinical decision making of moderate complexity using standardized patient assessment instrument and measurable assessment of functional outcome. Pager: [phone] TONG MIKE OT 05/20/2023 Occupational Therapy Rehabilitation [...] 0600 and on the weekends please page [phone]. * Rylie Rodriguez MD - 05/19/2023 3:59 [...] and plan. Cynthia Blackburn MD Nephrology Pager: [phone] * Diana Espino - 05/19/2023 1:49 PM EDT Weapons Mechanic Encounter Note Patient Name: Purnima Thacker : [id number] MR#: [id number] Admit Date: 05/08/2023 9:14 AM Hospital Day [...] pleural effusion +BM CT Removed (AM on 05-19(Landon)) Social History: Pt lives alone at baseline [...] returning home alone. Anticipated Discharge Disposition (PT): [place] [facility], [facility] Consult Recommendations: [...] as stated. Total Minutes, Physical Therapy: 38 ([phone]) Henrik Dale CANDY Navarrete Pager: [phone] Physical Therapy Inpatient Rehabilitation Department * Nico [...] 0600 and on the weekends please page [phone]. * Laure Ricks PA - 05/19/2023 7:56 [...] Ricks PA-C Interventional Radiology IR Team Pager [phone] * Consuelo Espinoza RN - 05/18/2023 4:13 PM EDT ANGIO NURSING DATABASE Name: Purnima Thacker Date of : 1955 AGE: 67 y.o. Address: [address] [place] [phone] (home) Mobile: No relevant phone numbers on [...] fraction I35.0 Mild coronary artery disease by [facility] 11/09/2022 I25.10 Heart failure with [...] and plan. Cynthia Blackburn MD Nephrology Pager: [phone] * Magdalena Puri, ANURAG - 05/18/2023 10:51 AM EDT Images from the original note were not included. [facility] [address] [place], [place] [phone] STRUCTURAL HEART DISEASE CONSULTATION NOTE PRIMARY CARE [...] stenosis. She is now status post TAVR Jxtve-hd-Daewg with a 23 mm Lai 3 THV 05/12/[address] Sharma. Preliminary findings: Successful right transfemoral TAVR Kjkov-ga-Upkgy with a 23 mm Lai 3 THV. [...] perforation. Interval Events: - 05/12 Transferred to [facility] post- TAVR for pressor/inotropic support [...] ejection fraction Mild coronary artery disease by [facility] 11/09/2022 Heart failure with reduced [...] Mara Serrano APRN 5 mg at 05/17/23 2025 ticagrelor (Brilinta) tablet 90 mg 90 mg [...] mg 81 mg Oral Daily Mara Serrano RESOURCING ADVISOR 81 mg at 05/18/23 0826 ondansetron (pf) (Zofran) (2 mg/mL) injection 4 mg 4 mg Intravenous Q8H PRN Mara SerranoTOREYN4 mg at 05/12/23 0736 pantoprazole EC (Protonix) tablet 40 mg 40 mg Oral Daily Corrie SerranoTOREY murphyN 40 mg at 05/18/23 0826 Or pantoprazole (Protonix) injection 40 mg 40 mg Intravenous Daily Mara SerranoANURAG 40 mg at 05/12/23 1004 senna-docusate (Pericolace) 8.6-50 mg per tablet 2 tablet 2 tablet Oral Daily Mara SerranoANURAG 2 tablet at 05/16/232 bisacodyL (Dulcolax) suppository 10 mg 10 mg Rectal Daily PRN MaggieMara ernandez APRN melatonin tablet 6 mg 6 mg Oral Nightly PRN Maggie MaraANURAG murphy 6 mg at 05/17/232024 influenza vaccine adjuvanted (Adult 65 Yrs +) (FluAD Quad) (PF) IM injection 0.5 mL 0.5 mL Intramuscular Prior to discharge Maggie ANURAG Terry FAMILY HISTORY: No family history on file. [...] (98.4 ??F) 93 23 106/67 96 % 05/17/232009 37.2 ??C (98.9 ??F) 89 10 117/68 95 % RA 05/18/23 0025 37 ??C (98.6 ??F) 88 16 117/61 99 % RA 05/18/23 0420 37 ??C (98.6 ??F) 91 12 99/55 94 % 05/18/23 0748 36.9 ??C (98.4 ??F) 97 22 108/61 93 % 05/18/23 0825 -- 98 -- -- -- [...] stenosis. She is now status post TAVR Chips-ua-Npphm with a 23 mm Lai 3 THV [...] Magdalena Puri APRN Structural Heart Team Pager [phone] Team Office Please see addendum by Dr. Sharma for final plan and recommendations Associated attestation - Antelmo Sharma MD - 05/19/2023 10:52 PM EDT I have reviewed Magdalena Puri APRN's above history and I agree with the details as written. The assessment and plan were formulated in discussion with me and I agree with them as documented. Antelmo Sharma MD Pager [phone] * Nico Palacios PA - 05/18/2023 8:13 [...] 0600 and on the weekends please page [phone]. * Loli Hernandez, PT - 05/17/2023 5:27 [...] seconds. -(Nerissa et al., 2008) References: Sriram Mackay L. Ferrucci et al. (2000). Lower extremity function and [...] returning home alone. Anticipated Discharge Disposition (PT): [place] [facility], [facility] facility Consult Recommendations: [...] plan as stated. Time IN / OUT: 6803-4101 Total Minutes, Physical Therapy: 54 Billing Code: te-sx2, te-f, gait LOLI HERNANDEZ PT Pager: [phone] Physical Therapy Inpatient Rehabilitation Department * Cynthia [...] Well controlled. Cynthia Blackburn MD Nephrology Pager: [phone] * Mara Serrano, RESOURCING ADVISOR - 05/17/2023 8:26 AM EDT Cardiac Surgery [...] hematoma, right groin ecchymotic, nontender Tubes/Lines/Drains: Art, ROSAURA Assessment/Plan: 67 y.o. female 5 Days Post-Op [...] 0600 and on the weekends please page [phone]. * Guerda Del Valle - 05/16/2023 10:44 AM EDT Nutrition Services Note - Low Nutrition Acuity Purnima Thacker is a 67 y.o. female Reason for intervention: hospital day 9 Nutrition Plan: Continue diet order Encourage good PO Lasix and Zofran noted Added special serve: open containers Monitor weight Patient scheduled for a hospital day 9 nutrition evaluation. Steward/Stewardess met with pt at bedside. Pt reports that her appetite and PO has much improved since admission. Denies nausea/vomiting or trouble chewing/swallowing. Steward/Stewardess provided snack list but pt not interested in adding snacks at this time. Her only concern was that she is worried that she will eat too much which will cause too much pressure in her stomach. Steward/Stewardess assured pt and suggested eating smaller but [...] Last Bowel Movement: 05/10/23 Guerda Del Valle Quality Systems Technician * Vinod Juárez PA - 05/16/2023 10:19 [...] prosthetic . #Severe prosthetic AV stenosis s/p Jaent TF [...] 0600 and on the weekends please page [phone]. * Michael Jeffers MD - 05/16/2023 8:11 AM EDT Images from the original note were not included. Hypertension-Nephrology Inpatient Follow-up Purnima Thacker [id number] 1955 ID: 67 y.o. old female seen [...] IRONSAT 12 (L) 05/16/2023 SFOLATE >20.0 07/03/2022 [id number] 07/03/2022 Lab Results Component Value Date [...] Dr. Ayoub. Please contact me at phone: [phone] or pager: [phone] with any questions. Michael Jeffers MD Nephrology [...] -Nephrology consulted, labs and renal US ordered -Harlan removed, ambulated around the unit -bilateral pleural [...] b/l, no evidence of hematoma. Tubes/Lines/Drains: LUKAS, Rubens, ROSAURA Assessment/Plan: 67 y.o. female 3 Days Post-Op [...] 0600 and on the weekends please page [phone]. * Hortencia Cody MD - 05/15/2023 2:07 [...] 3 wbc, hgb, hct plt Recent Labs 05/15/234905/14/2310905/13/23114 WBC 9.1 11.2* 8.6 HGB 7.2* 7.2* 7.8* HCT 20.6* 20.3* 22.2* PLATELET 109* 112* 130* Last 3 Lytes Recent Labs 05/15/234905/14/2310905/13/23114 NA 131* 132* 132* K 3.7 4.1 [...] Vitals for the past 168 hrs: Weight 05/15/23 0400 78.2 kg (172 lb 6.4 oz) 05/14/23 06 79.7 kg (175 lb 11.3 oz) 05/13/23 0600 75.3 kg (166 lb 0.1 oz) 05/12/23 0300 74.5 kg (164 lb 3.9 oz) 05/11/23 0347 77.4 kg (170 lb 9.6 oz) 05/10/23 0400 78.1 kg (172 lb 1.6 oz) 05/09/23 2336 78.4 kg (172 lb 14.4 oz) 05/09/23 0400 76.8 kg (169 lb 5 oz) Micro: [...] not included. Hypertension-Nephrology Inpatient Follow-up Purnima Thacker [id number] 1955 ID: 67 y.o. old female seen [...] HGB 7.8 (L) 05/13/2023 SFOLATE >20.0 07/03/2022 [id number] 07/03/2022 Lab Results Component Value Date [...] Dr. Ayoub. Please contact me at phone: [phone] or pager: [phone] with any questions. Michael Jeffers MD Nephrology [...] ??C (97.9 ??F)] Heart Rate: [88-114] Resp: [12-] BP: (85-120)/(52-72) SpO2: [94 %-99 %] Heart Rate from SpO2: [89 bpm-117 bpm] Vent settings: 1L NC Gen: elderly female, sitting up in chair CVS: RRR Lungs: CTAB Abd: soft, NT, ND, BS+ Ext: WWP Skin: no rashes Neuro: AA&Ox3, moving all extremities Labs Last 3 wbc, hgb, hct plt Recent Labs 05/14/23 01105/13/23 01105/12/23 1405 05/12/23 0850 05/12/23 0810 05/12/23 0105 WBC 11.2* 8.6 -- -- -- 9.0 HGB 7.2* 7.8* 8.5* -- -- 9.8* HCT 20.3* 22.2* -- 23.0* < > 28.7* PLATELET 112* 130* -- -- -- 186 < > = values in this interval not displayed. Last 3 Lytes Recent Labs 05/14/23 01105/13/2311405/12/23 1405 05/12/23 0600 NA 132* 132* -- 131* K 4.1 3.8 3.9 4.3 CL 94* 95* -- 97* CO2 18* 20* -- 14* BUN 98* 82* -- 67* CREATININE 4.80* 3.15* -- 2.01* Last 3 LFTs Recent Labs 05/14/23 01105/13/23 0115 05/12/23 0600 AST 319* 792* 1,435* [...] outlined inthis evaluation. HAVEN BA, PT Pager: [phone] Physical Therapy Inpatient Rehabilitation Department Time IN / OUT: 4912-2650 Total time: Total Minutes, Physical Therapy: 30 [...] no evidence of hematoma. Tubes/Lines/Drains: RIJc, Rubens, PIV Assessment/Plan: 67 y.o. female 2 Days [...] 0600 and on the weekends please page [phone]. * Antelmo Sharma MD - 05/14/2023 7:56 AM EDT Images from the original note were not included. [facility] [place] [address] STRUCTURAL HEART DISEASE CONSULTATION NOTE PRIMARY CARE PROVIDER: Mgadalena Acosta MD REFERRING PROVIDER: Mario Alberto Chin [...] stenosis. She is now status post TAVR Nvqyj-xg-Vezuq with a 23 mm Lai 3 THV 05/12/[address] Sharma. Preliminary findings: Successful right transfemoral TAVR Zkcya-om-Tcjbu with a 23 mm Lai 3 THV. [...] ejection fraction Mild coronary artery disease by [facility] 11/09/2022 Heart failure with reduced [...] stenosis. She is now status post TAVR Mdjxe-sn-Rjbrb with a 23 mm Lai 3 THV [...] days with echo, CBC, and BMP Brody Dale ANURAG Kaplan Structural Heart Team Pager [phone] Team Office Please see addendum by Dr. [...] exposure. Nephrology consultationtoday. Antelmo Sharma MD Pager [phone] * Antelmo Cardenas RN - 05/14/2023 5:18 AM EDT Pt AOx4, complaining of mild/moderate generalized pain (states her Meloxicam is effective at home) currently refusing prn oxycodone. NAEON, hemodynamically stable on Milrinone, Maps >65, ST in tgb452's down to NSR with frequent multifocal PVC's. [...] original note were not included. [facility] [place] [address] STRUCTURAL HEART DISEASE PROGRESS NOTE PRIMARY CARE [...] stenosis. She is now status post TAVR Lgqdv-pe-Mkadb with a 23 mm Lai 3 THV 05/12/[address] Sharma. Preliminary findings: Successful right transfemoral TAVR Bvpai-xb-Twzda with a 23 mm Lai 3 THV. [...] or perforation. Interval Events: - Transferred to [facility] post- TAVR for pressor/inotropic support [...] ejection fraction Mild coronary artery disease by [facility] 11/09/2022 Heart failure with reduced [...] tablet 40 mg 40 mg Oral Daily Egmon, Lorri N, PA 40 mg at 05/13/23 0825 Or [...] stenosis. She is now status post TAVR Qtnwt-zd-Ufhuu with a 23 mm Lai 3 THV [...] Brody Kaplan APRN Structural Heart Team Pager [phone] Team Office Please see addendum by Dr. [...] DAPT moving forward. Antelmo Sharma MD Pager [phone] * Bonita Miguel PA - 05/13/2023 8:30 AM EDT Cardiac Surgery Progress Note Purnima Thacker is a 67 y.o. 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 PMH of s/p tissue AVR (2017), mixed connective tissue disease HTN, HLD, NICOLAS, diverticulosis, rosacea, essential tremor, and depression. 24h Events: From photo lab manager for above procedure Extubated at ~1600 [...] soft b/l, no evidence of hematoma. Tubes/Lines/Drains: Harlan, RIJ, A-line, Art, PIV Assessment/Plan: 67 y.o. [...] 0600 and on the weekends please page [phone]. * Onelia Schwartz MD - 05/12/2023 1:44 [...] ejection fraction Mild coronary artery disease by [facility] 11/09/2022 Heart failure with reduced [...] FiO2 weaned to 40%. 1105: ABG 7.34/42/73/22 5577-7189: SBT performed and passed on these settings [...] PCP: Magdalena Acosta MD PCP phone number: [phone] Date of Admission: 05/08/2023 ( Hospital Day [...] (05/12/23 012) [SEP Hold] NORepinephrine 6 mcg/min (05/12/23641) Ventilator Settings: Mode: , SET RR: TV: PEEP: FiO2: VARIABLES PATIENT RR: PIP: Pplateau: SpO2: OUTPUT Resp: (!) 31 SpO2: 94 % ABG (Arterial Blood Gas) Recent Labs 05/12/23 0700 05/12/23 0318 05/12/2310505/11/23193905/11/23 1447 PHART -- 7.34* 7.34* -- -- LPU0EGQ -- 30* 30* -- -- PO2ART -- 72* 81* -- -- INE7NQL -- 16.0* 15.7* -- -- LACTATEVEN 2.4* 2.7* 2.7* 4.8* 2.9* VBG (Venous Blood Gas) Recent Labs 05/12/23 0700 05/12/23 0318 05/12/2310505/11/23193905/11/23 1447 LACTATEVEN 2.4* 2.7* 2.7* 4.8* 2.9* Mixed Venous Sat Recent Labs 05/12/23 0508 05/12/23 0321 05/12/23 0114 05/12/23 0030 [id number] 30.7 32.7 37.3 25.1 Objective: Vitals Last [...] Lines: Pulmonary Artery Catheter - Single Lumen 05/12/23 003 Right internal jugular vein (Active) Venous Infusion [...] redness;no swelling;no warmth 05/11/231999 Labs: Recent Labs 05/12/2310405/11/2344105/10/2322705/09/23 0400 05/08/23 1138 WBC 9.0 7.0 5.2 6.4 4.1 HGB 9.8* 11.1* 10.2* 10.2* 10.2* HCT 28.7* 32.7* 30.2* 30.3* 29.6* PLATELET 186 165 151 151 136* MCV 95.3* 95.1* 97.1* 96.2* 97.0* Recent Labs 05/12/2359905/12/2310405/11/2344105/10/238 05/09/23 0400 05/08/23 1600 05/08/23 1138 NA [...] 0.90 1.03 -- 1.02 LFTs Recent Labs 05/12/2359905/12/2310405/11/232 05/10/238 05/09/23 0400 PROT 6.3 6.6 7.2 6.4 [...] have questions please contact the health career consultant that requested your imaging first. Electronically signed by: ALIX RUVALCABA MD, [facility] ([phone]), at 05/10/2023 1:[address] Cardiac for [...] have questions please contact the health career consultant that requested your imaging first. Electronically signed by: Cullen Narayanan MD, [facility] ([phone]), at 05/11/2023 4:[address] Angiogram Abdomen [...] have questions please contact the health career consultant that requested your imaging first. Electronically signed by: Eileen Gomes MD, [facility] ([phone]), at 05/11/2023 2:42 PM XR Chest One [...] have questions please contact the health career consultant that requested your imaging first. Electronically signed by: Will Rowe MD, [facility] ([phone]), at 05/11/2023 11:57 PM XR Chest One View (Exam End: 05/12/2023 1:00 AM) Impression * Right IJV approach pulmonary arterial catheter terminates in the right interlobar pulmonary artery near its bifurcation. Please retract 5 to 7 cm. * Increased pulmonary vascular congestion, interstitial/alveolar edema, and medium-sized bilateral pleural effusions. IZe, discussed the above findings with Dr. Klaudia Reid on 05/12/2023 at 3:15 AM and verified understanding. Thank you for letting us participate in the care of this patient. If you are a health care provider and have any questions regarding this report, please contact the number below. For patients who have questions please contact the health career consultant that requested your imaging first. Electronically signed by: Will Rowe MD, [facility] ([phone]), at 05/12/2023 3:16 AM Assessment & Plan: [...] and inotrope. She is planned for a ncxvw-wn-dbonu TAVR this morning, which should hopefully improve [...] MD, FACP, FACC Section of Cardiovascular Medicine [facility] Stoneworkerscrap separator [facility] at [facility] * Noreen Deutsch RN - 05/12/2023 [...] ejection fraction Mild coronary artery disease by [facility] 11/09/2022 Heart failure with reduced [...] 05/11/2023 4:11 PM EDT Reported off to SUPERVISOR WINTER and pt transferred over in the bed for higher level of care. * Antelmo Sharma MD - 05/11/2023 9:45 AM EDT Images from the original note were not included. [place] [id number] STRUCTURAL HEART DISEASE CONSULTATION NOTE PRIMARY CARE [...] who had been referred for possible TAVR lxpoa-mp-sgkte evaluation. Her primary symptoms are of dyspnea [...] otherwise negative. Ms. Thacker is originally from [facility] [place] [place]. 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 She states that, [...] ejection fraction Mild coronary artery disease by [facility] 11/09/2022 Heart failure with reduced [...] hour(s)) Lactate, whole blood, send to lab ([facility]) Result Value Ref Range Lactate WB 3.1 (H) 0.5 - 2.2 mmol/L Heparin (unfractionated) Level Result Value Ref Range Heparin UFH Level 0.46 IU/mL Lactate, whole blood, send to lab ([facility]) Result Value Ref Range Lactate WB 1.8 [...] leads Confirmed by MD Harshil, Enrique Bell ([id number]) on 05/10/2023 8:11:46 AM Cardiac Cath 11/09/2022 [...] to decompensating HFrEF, she was transferred to [facility] this afternoon for further management. TAVR CT imaging support for adequate ileofemoral access. Given her acute deterioration today, will planfor RTF TAVR on 05/12/2023. Brody Kaplan ANURAG Structural Heart Disease Pager [phone] Please see addendum by Dr. Sharma for [...] signed and dated. Antelmo Sharma MD Pager [phone] * Harini Lance MD - 05/11/2023 6:06 AM EDT Images from the original note were not included. Cardiology Progress Note Patient info: Name: Purnima Thacker : 1955 PCP: Magdalena Acosta MD PCP phone number: [phone] Date of Admission: 05/08/2023 ( Hospital Day [...] 0.90 1.03 -- 1.02 LFTs Recent Labs 05/11/2344105/10/2322705/09/23399 PROT 7.2 6.4 6.6 ALBUMIN 3.7 3.7 [...] have questions please contact the health career consultant that requested your imaging first. Electronically signed by: ALIX RUVALCABA MD, [facility] ([phone]), at 05/10/2023 1:25 PM TTE: 05/08 -Left [...] 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) Mild coronary artery disease by [facility] 11/09/2022 Hyperlipidemia, unspecified NICOLAS (obstructive [...] PCP: Magdalena Acosta MD PCP phone number: [phone] Date of Admission: 05/08/2023 ( Hospital Day [...] warmth;no swelling;no redness 05/08/231999 Labs: Recent Labs 05/10/2322705/09/23 0400 05/08/23 1138 WBC 5.2 6.4 4.1 [...] 0.90 1.03 -- 1.02 LFTs Recent Labs 05/10/23 0228 05/09/23 0400 PROT 6.4 6.6 ALBUMIN 3.7 3.8 [...] 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) Mild coronary artery disease by [facility] 11/09/2022 Hyperlipidemia, unspecified NICOLAS (obstructive [...] PCP: Magdalena Acosta MD PCP phone number: [phone] Date of Admission: 05/08/2023 ( Hospital Day [...] stabilization device, secured with 05/08/231999 Patency/Maintenance infusing 10/08/23 0600 Phlebitis 0-->no symptoms 05/09/23599 Infiltration 0-->no symptoms [...] 05/08/231999 Labs: Recent Labs 05/09/23 0400 05/08/23 113 WBC 6.4 4.1 HGB 10.2* 10.2* HCT [...] Gas) No results found for: PHART, PO2ART, HRG2EYF, GWQ7NMH Microbiology: Microbiology Results (Last 30 days) No [...] PPx: Diet: Daily Healthy Menu Choices/Cardiac diet ([facility]-Diet) Lines: Peripheral IV Line - Single Lumen [...] 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) Mild coronary artery disease by [facility] 11/09/2022 Hyperlipidemia, unspecified NICOLAS (obstructive [...] fraction I35.0 Mild coronary artery disease by [facility] 11/09/2022 I25.10 Heart failure with reduced ejection fraction due to heart valve disease I50.20, I38 Cardiogenic shock R57.0 S/P TAVR (transcatheter aortic valve replacement) Z95.2 Past Medical History: Diagnosis Date Anemia Past Surgical History: Procedure Laterality Date PRG CATH PLMT LEFT HEART CATH & ARTS W/INJ & ANGIO IMG S&I N/A 11/09/2022 CORONARY ANGIOGRAPHY; W [facility],POSSIBLE PCI (WRVU 5.6) performed by Mario Alberto Escobedo MD at [facility] CATH LABS PRO AORTOPLAS FOR SUPRAVALV STEN N/A 09/21/2016 @AORTOPLASTY FOR SUPRAVALVULAR STENOSIS (WRVU 29.33) performed by Alirio Hudson MD at [facility] MAIN OR PRO REPLACEMENT PROSTHETIC AORTIC VALVE OPEN W CARDIOPULMONARY BYPASS HOMOGRF/STENT N/A 09/21/2016 @REPLACE AORTIC VALVE, OPEN, W\CPB, W\PROSTHETIC VALVE (WRVU 41.32) performed by Alirio Hudson MD at [facility] MAIN OR Social History and Habits: [...] Verio test strips Strip USE DAILY OneTouch DelPoly Adaptive Plus Lancet 33 gauge Misc USE DAILY [...] fraction I35.0 Mild coronary artery disease by [facility] 11/09/2022 I25.10 Heart failure with reduced ejection fraction due to heart valve disease I50.20, I38 Cardiogenic shock R57.0 S/P TAVR (transcatheter aortic valve replacement) Z95.2 Past Medical History: Diagnosis Date Anemia Past Surgical History: Procedure Laterality Date PRG CATH PLMT LEFT HEART CATH & ARTS W/INJ & ANGIO IMG S&I N/A 11/09/2022 CORONARY ANGIOGRAPHY; W [facility],POSSIBLE PCI (WRVU 5.6) performed by Mario Alberto Escobedo MD at [facility] CATH LABS PRO AORTOPLAS FOR SUPRAVALV STEN N/A 09/21/2016 @AORTOPLASTY FOR SUPRAVALVULAR STENOSIS (WRVU 29.33) performed by Alirio Hudson MD at [facility] MAIN OR PRO REPLACEMENT PROSTHETIC AORTIC VALVE OPEN W CARDIOPULMONARY BYPASS HOMOGRF/STENT N/A 09/21/2016 @REPLACE AORTIC VALVE, OPEN, W\CPB, W\PROSTHETIC VALVE (WRVU 41.32) performed by Alirio Hudson MD at [facility] MAIN OR Social History and Habits: [...] days, which prompted her to present to [employer]. She also endorses some intermittent retrosternal chest pain with exertion.She endorses some dizziness with exertion, but has not gotten faint or passed out. At [employer] she was noted to be afebrile, blood pressure 105/64, HR 120s, satting 95% on 2L NC. Labs from [employer] are below, of note she had elevated [...] 89/59, which prompted the transfer to us. [employer] labs: CBC - Hgb 10.5 CMP - Cr 1.1 BNP 69488 HsTrop 1358 Lactate 1.6 D-dimer 1183 Interval History Patient was admitted to [facility] due to concern on low BP iso [...] Intake/Output Summary (Last 24 hours) at 05/08/2023 175 Last data filed at 05/08/2023 1600 Gross [...] Code Status: Attempt Cardiopulmonary Resuscitation - Inpatient [facility] Roman Reid MD Internal Medicine PGY-1 Pager [phone], M1-S1 Service Associated attestation - Juan Luis Gonzalez MD - 05/08/2023 10:00 PM EDT Cardiology Attending Addendum Active Hospital Problems Diagnosis Symptomatic severe aortic stenosis with low ejection fraction Heart failure with reduced ejection fraction due to heart valve disease Mild coronary artery disease by [facility] 11/09/2022 Hyperlipidemia, unspecified History of [...] PCP: Magdalena Acosta MD PCP phone number: [phone] Date of Admission: 05/08/2023 ( Hospital Day 0 days ) Attending:Enrique Chua MD ID: Purnima Thacker is a 67 y.o. female w/ PMH of s/p bioprosthetic AVR in 2016 with recent concern for severe restenosis, HTN, HLD, mixed connective tissue disease, who presents in transfer from [employer] with worsening BONILLA and weight gain concerning [...] four days, which promptedher to present to [employer]. She also endorses some intermittent retrosternal chest pain with exertion. She endorses some dizziness with exertion, but has not gotten faint or passed out. At [employer] she was noted to be afebrile, blood pressure 105/64, HR 120s, satting 95% on 2L NC. Labs from [employer] [facility] are below, of note she had elevated [...] 89/59, which prompted the transfer to us. [employer] labs: CBC - Hgb 10.5 CMP - Cr 1.1 BNP 99128 HsTrop 1358 Lactate 1.6 D-dimer 1183 Vasoactive [...] w/ PMH of s/p bioprosthetic AVR in 2015 with recent concern for severe restenosis, HTN, HLD, mixed connective tissue disease, who presents in transfer from [employer] [facility] worsening BONILLA and weight gain concerning for [...] #Routine Diet: Daily Healthy Menu Choices/Cardiac diet ([facility]-Diet) DVT Prophylaxis: heparin gtt GI Prophylaxis: none [...] remains HD stable, can transfer out of [facility]. -Structural Heart consult; will need inpatient TAVR. [...] to the planned procedure. Hand Hygiene: The digital engineer did perform hand hygiene prior to arterial [...] Successful arterial line placement. Crispin Timmons MD Cured Meats Supervisor Associated attestation - Onelia Schwartz MD - [...] (flow was non-pulsatile) and appearance of blood. Harlan-Marily catheter was placed and locked at 55 [...] information for follow-up [facility], [place] [address] [place] [address] Cardiac Rehab, [facility] [address] [place] [address] [facility] [address] [place] [address] Transportation: family or friend will provide *Brother [...] Type: *No Product type* / Secondary Insurance: [employer] [place] Prescription Coverage: Yes This plan was formulated with input from patient, family (please identify family/friend involved ifapplicable) and team. All are in agreement with plan. Aliza Martino MSN-Ed, RN ACM glass edger Office of Care Management Pager #[phone] * Plan of Care - Favian Mckeon [...] Chaudhary RN - 05/21/2023 4:46 PM EDTSummary: [facility] referral OFFICE OF CARE MANAGEMENT [...] Type: *No Product type* / Secondary Insurance: [employer] [place] Last Physical Therapy Recommendation: (Home with assist from Brother; Friend arriving Tues) with walker, front wheeled Last Occupational Therapy Recommendation: swing bed rehabilitation facility, [place] [facility] (vs home with support for IADLs) with walker, front wheeled, shower chair Plan for discharge is: Home w/ Services Outpatient Agency/Support Group Needs: Homecare agency Home Health Services: Physical Therapy, Occupational Therapy Agency Referrals: I have met with the patient to: discuss discharge planning needs. describing our affiliations within the [facility] Includes [facility] and educate about their right to choose where referrals are sent. provide a list of Home Health Agencies / Durable Medical Equipment vendors which serve their preferred geographic area. They have requested referrals to: [facility] [address] [place] [address] Ortho Care Located @ [place], [place] Note routed to a Extension Professor who will communicate referrals to facilities and provide any required information. Transportation: family or friend will provide *Brother Raymond on Tuesday 05/22 at 1000 Barriers to discharge: Does not have home 22/02 assist available until tomorrow Tuesday 05/22 Plan going forward: Discharge home into the 22/02 home care of brother Raymond with [facility] and [facility] PT/OT services on Tuesday 05/22 [...] Attending: All Staff: Staff Role Juanita Almaguer Starch Cooker Laure Ricks PA Physician Security Guards Dispatcher Magdalena Rodriguez demonstrator sewing techniques Nurse Consuelo Espinoza, demonstrator sewing techniques Nurse Post-operative diagnosis/Indication: Right pleural effusion Name [...] Type: *No Product type* / Secondary Insurance: [employer] [facility] Last Physical Therapy Recommendation: [place] [facility] [place], swing bed rehabilitation facility with to be determined Last Occupational Therapy Recommendation: with Plan for discharge is: [facility] Facility / Swing Outpatient Agency/Support Group Needs: None Agency Referrals: Based on discussions with the multi-disciplinary healthcare team, the patient would benefit from SNF / Swing level of care at discharge. I have met with the patient to: discuss discharge planning needs. provide the [facility], Office of Care Management letter from the Weight Loss Consultant pertaining to rehab referrals. provide a letter describing our affiliations within the [facility] Includes [facility] and educate about their right to choose where referrals are sent. provide the CMS Star Quality Rating handout. review the different levels of rehab including SNF, swing, and acute. provide a list of facilities within their preferred geographic area. request that they provide at least three choices for referral. They have requested referrals to: [facility] [address] [place] [address] [facility]) [address] [place] [address] (Accepts pts only after exhausting all other local SNF options) [facility] ([facility]) ([facility]) [address] [place] [address] PHONE: [phone] FAX: [phone] Simin Benavides [place] ([facility]) [facility]) [address] [place] [address] PHONE: [phone] FAX: [phone] Note routed to a Extension Professor who will communicate referrals to facilities and [...] Crenshaw RN - 05/17/2023 10:25 AM EDT [facility] CARDIAC REHABILITATION Purnima Thacker was seen today regarding participation in the outpatient Phase 2 Cardiac Rehabilitation at [facility]. The patient agrees to a referral to [...] from the original note were not included. [facility] NEPHROLOGY/HYPERTENSION CONSULT NOTE PATIENT: Purnima Thacker [...] in her course. She ultimately underwent a wszjv-vz-kkqlg procedure on and tolerated it well (see [...] INTAKE/OUTPUTS: Intake/Output Summary (Last 24 hours) at 05/14/2023 2306 Last data filed at 05/14/2023 2200 Gross per 24 hour Intake 679.6 ml [...] No asterixis. STUDIES: LABS: CBC: Recent Labs 05/14/2310905/13/2311405/12/23140405/12/23 0105 WBC 11.2* 8.6 -- 9.0 HGB 7.2* 7.8* 8.5* 9.8* PLATELET 112* 130* -- 186 Chemistry: Recent Labs 05/14/2310905/13/2311405/12/23 1405 05/12/23 0600 NA 132* 132* -- 131* K 4.1 3.8 3.9 4.3 CL 94* 95* -- 97* CO2 18* 20* -- 14* BUN 98* 82* -- 67* CREATININE 4.80* 3.15* -- 2.01* GLUCOSE 120 107 -- 167 Recent Labs 05/14/2310905/13/2311405/12/23 0600 05/09/23 0400 05/08/23 1600 05/08/23 1138 CALCIUM 8.5 8.3* 8.6 < > -- 9.4 MAGNESIUM -- -- -- -- 0.82 0.76 PHOS -- -- -- -- -- 4.7* < > = values in this interval not displayed. ABG (Arterial Blood Gas) Recent Labs 05/12/23 1557 05/12/23 1423 05/12/23 1105 PHART 7.39 7.37 7.34* [id number] 33* 36 42 PO2ART 101 102 73* LAT8NCM 19.5* 20.4 22.1 LACTATEVEN 1.5 1.8 2.8* [id number] 40 40 40 PFRATIOART2 252 255 182 VBG (Venous Blood Gas) Recent Labs 05/12/23 1557 05/12/23 1423 05/12/23 1105 LACTATEVEN 1.5 1.8 2.8* Mixed Venous Sat Recent Labs 05/12/23 1425 05/12/23 0508 05/12/23 0321 B5BHSX1 59.9 30.7 32.7 LFT's: Recent Labs 05/14/23 0110 05/13/23 0115 05/12/23 0600 BILITOT 0.4 0.5 0.9 BILIDIR -- 0.3 -- ALBUMIN 3.6 3.0* 3.5 ALKPHOS 86 85 100 ALT 437* 903* 1,174* AST 319* 792* 1,435* No results found for: UPROTCREAT No results found for: TPROTEINPEP, ALBELECT No results found for: MICROALBUR, [id number] No results found for: HA1C Lab Results Component Value Date CALCIUM 8.5 05/14/2023 PHOS 4.7 (H) 05/08/2023 No results found for: 25OHVITD MICROBIOLOGY: ProcedureComponentValueUnitsDate/TimeUrine culture [[id number]]Collected: 05/11/231921Lab Status: Final resultSpecimen: Clean Catch UrineUpdated: 05/12/23 184Urine Culture--50,000-99,000 cfu/ml Normal mucosal herman Susceptibility testing [...] consulted for assessment if this patient needs HYDROGENATION OPERATOR. Atthis time, we can likely hold off on HYDROGENATION OPERATOR. Her volume status appears sufficient and her metabolic kanwal angements with mild acidosis is not too profound. Patient does not have significant uremic symptoms. We can hold off for today, but the patient is a high risk candidate for needing HYDROGENATION OPERATOR in future daysespecially if her Cr curve trends the direction it is for the next several days. S/p Rhbkf-pz-Dkdwc TF TAVR: Management per cardiology. On milrinone gtt. PLAN: - Please obtain following diagnostics: renal US, urinalysis, urine prot/Cr ratio, urine albumin/Cr ratio, CK, uric acid, serum osmol, daily VBGs - No acute indications for HYDROGENATION OPERATOR/dialysis. We will keep close eye on Cr trend, volume status, and metabolics to ensure patient still does not need HYDROGENATION OPERATOR as she ensues intrinsic renal recovery - If needing to diuresis, please administer high dose lasix (ex - 200mg IV bolus) + high dose diuril (ex 500mg IV) - Hold home losartan, meloxicam, and plaquenil Avoid nephrotoxic medications including NSAIDs and contrast. Thanks for letting us participate in the care of this patient. 05/14/2023 Malathi Muro M.D., M.P.H., M.H.A., M.A. PGY-V Nephrology-Hypertension Fellow Page # [phone] [facility] [address] 2nd floor, Police Surgeon [address] [place] [address] * Care Management - Mario Alberto Olmos [...] [SEP Hold] NORepinephrine 6 mcg/min (05/12/23 06) Decision Maker: Self Functional status prior to [...] Type: *No Product type* / Secondary Insurance: [facility] Plan for discharge is: Home w/o Services [...] for a TAVR at 730. Returned to [facility] at 0945. Was intubated in the photo lab manager due to agitation. Maintained bedrest for [...] Operative Note Patient Name: Purnima Thacker : [id number] MR#: [id number] Case Date: 05/12/2023 Surgeon: Surgeon(s) and Role: [...] procedure Note: Patient Name: Purnima Thacker : [id number] MR#: [id number] Case Date: 05/12/2023 Operators Surgeon: Surgeon(s) and [...] main with 4.0 x 30 mm Resolute Newport Drug Eluting Stent Perclose x1 + Angio-seal 8 Fr x1, RFA Manual pressure, LFA Manual pressure, LFV Endotracheal intubation (performed by cardiac anesthesia) Preliminary findings: Successful right transfemoral TAVR Veyhb-yx-Qkmfr with a 23 mm Lai 3 THV. [...] MD, M.Sc. Structural Heart Disease Fellow Pager :[phone] Antelmo Sharma MD Pager [phone] * Op Note - Alirio Hudson MD - 05/12/2023 7:37 AM EDT Preop Diagnosis: Severe aortic stenosis, symptomatic. Postop Diagnosis: Same. Procedure: Transfemoral TAVR procedure with 23mm valve. Surgeon: Alirio Hudson M.D. Supervisor Shuttle Preparation: Danny CULP Procedure: The patient was taken to the photo lab manager. The patient had monitored anesthesia care. 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 [facility] [place] [address] STRUCTURAL HEART DISEASE CONSULTATION NOTE PRIMARY CARE [...] who had been referred for possible TAVR xbmcl-pe-mlpfb evaluation. Her primary symptoms are of dyspnea [...] otherwise negative. Ms. Thacker is originally from [facility]. 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 PROBLEM LIST: Patient Active Problem List Diagnosis Symptomatic severe aortic stenosis with low ejection fraction Mild coronary artery disease by [facility] 11/09/2022 Heart failure with reduced [...] (!) 32 -- 91 % -- -- 05/09/231999 -- (!) 114 bpm (!) 114 25 90/60 95 % -- -- 05/09/232022 -- -- -- -- -- -- 2 L/min NC 05/09/230 -- -- (!) 109 -- -- 95 [...] hour(s)) Lactate, whole blood, send to lab ([facility]) Result Value Ref Range Lactate WB 1.8 [...] leads Confirmed by MD Harshil, Enrique Bell ([id number]) on 05/10/2023 8:11:46 AM Assessment and Plan: [...] plan had been for TAVR JANET issa madidanny given her chronological age. Nonetheless, will move forward with other diagnostic testing including cardiac and abdomen/pelvis CTA and possible catheterization. Once her testing is complete and seen by CTS, will coformulate a plan and timing for treatment of her valve. Antelmo Sharma MD Structural Heart Disease Pager [phone] * Plan of Care - Sarahi Nice RN - 05/10/2023 3:55 AM EDTSumavsi: VALDO Note and Care Plan Sarahi Nice RN assumed care of pt at time of their arrival to room 362 from [facility]. Pt voices shortness of breath [...] Manage VTE (Venous Thromboembolism) Risk Flowsheets (Taken 05/09/20232335) VTE Prevention/Management: anticoagulant therapy Intervention: Prevent Infection Flowsheets (Taken 05/10/20230) Infection Prevention: environmental surveillance performed equipment surfaces disinfected hand hygiene promoted rest/sleep promoted single patient room provided personal protective equipment utilized Goal: Optimal Comfort and Wellbeing Outcome: Ongoing (Interventions Implemented as Appropriate) Intervention: Provide Person-Centered Care Flowsheets (Taken 05/09/2023 2336) Trust Relationship/Rapport: care explained choices provided emotional [...] listening utilized Taken 05/08/20231999 by Alivia Kauffman RN Family/Support System Care: self-care encouraged support provided Problem: [...] Transfer from another hospital Location: admitted from [employer] Reason for Hospitalization: Critical aortic stenosis, causing symptoms Past medical History: Past Medical History: Diagnosis Date Anemia Hospitalizations Within the Past 30 Days: no previous admission in last 30 days Current Decision-Making Capacity: Self If AD's have not been completed the following surrogate would be surrogate decision maker per [place] decision making law. (Only good for 180 days) Any patient receiving care in [place] must abide by [place] law. The hierarchy for surrogate decision making [...] Current DME: none Home Address confirmed as: [address] [place] [phone] Social & Family Supports: All names listed [...] Type: *No Product type* / Secondary Insurance: [facility] [place] ONLY if patient has Medicare A&B - Does this patient have secondary insurance?: Yes ; Prescription Coverage: Yes Preferred Pharmacy: updated to [facility] Status: Patient is a : No Primary Care Provider confirmed: Magdalena Acosta MD [phone] Patient/Caregiver Goals of Treatment: Potential Needs for [...] of a 2 story [facility] Patient is independent with ADL's at baseline [...] transition of care planning. Alie Bradshaw RN, CM Pager-[phone] * Plan of Care - Emily Lucero RN - 05/08/2023 2:54 PM EDT OUTCOME EVALUATION NOTE: OUTCOME SUMMARY: Pt arrived from [employer]. A&O, no c/o pain or SOB. Heparin [...] 4:15 PM EDT Office Visit D[facility]ology at [facility] [address] [place] [phone] Marek Bonilla MD [address], [place] [address] Scheduled Referrals Name Type Priority Associated Diagnoses [...] Heart Cath W/Inj L Ventriculography, Img S&I ([id number]) 05/12/2023 7:37 AM EDT Aortic valve stenosis, [...] DOPP COLOR DOPP (07/08/2023 12:15 PM EST) [facility] EF 20 HEARTLAB SYSTEM Anatomical Region Laterality Modality Cardiac Other 07/08/2023 10:3 1 AM EST Narrative 07/08/2023 12:26 PM EST [address] [place] [address] ? Echocardiogram Report Name: PURNIMA THACKER ?Study Date: 07/08/2023 10:31 AMBP: 118/60 mmHg ? [facility] 1955 ? Height: 155 cm ? Account: [id number] Age: 67 yrs ? Weight: 74 kg Gender: Female ?BSA: 1.7 m2 Ordering Physician: ALIRIO HUDSON Referring Physician: VINOD JUÁREZ Performed By: Felicia Norris RODOLOF Reason For Study: S/P TAVR Exam Location: [facility]. Interpretation Summary Left ventricular systolic function is [...] no significant change (post-procedure). Procedure Limited - 94366. Doppler - 03071. Color Doppler - 54741. Satisfactory quality. This study is limited because [...] Note Lee Kincaid MD - 07/08/2023 1 [place] [address] Echocardiogram Report Name: LASHELL THACKERDARWIN Mejias Study Date: 0:31 AMBP: 118/60 mmHg Patient Location: : 1955 Height: 155 cm Account: [id number] Age: 67 yrs Weight: 74 kg Gender: Female BSA: 1.7 m2 Ordering Physician: ALIRIO HUDSON Referring Physician: VINOD JUÁREZ Performed By: Felicia Norris RDCS Reason For Study: S/P TAVR Exam Location: [facility]. Interpretation Summary Left ventricular systolic function is [...] is nosignificant change (post-procedure). Procedure Limited - 15533. Doppler - 71371. Color Doppler - 66389. Satisfactoryquality. This study is limited because of [...] EST) Glucose 93 65 - 199 mg/dL [facility] Comment:Diabetes: >=200 mg/d L plus symptoms Blood Urea Nitrogen 19(H) 8 - 18 mg/dL [facility] Creatinine 0.81 0.70 - 1.20 mg/dL [facility] Sodium 142 135 - 145 mmol/L [facility] Potassium 3.8 3.5 - 5.0 mmol/L [facility] Comment: Please note: ??Patients with WBC >100,000 may have falsely elevated Potassium levels. ??For accurate Potassium quantification in these patients send serum separator tube (gold top) for subsequent determinations. ??Contact the Clinical Chemistry Laboratory if there are any questions. Chloride 104 98 - 107 mmol/L [facility] Carbon Dioxide 26 22 - 31 mmol/L [facility] Anion Gap 12 5 - 15 mmol/L [facility] Calcium 10.2 8.5 - 10.5 mg/dL [facility] Protein, Total 7.4 6.1 - 8.0 g/dL [facility] Albumin 4.1 3.2 - 5.2 g/dL [facility] Aspartate Aminotransferase 24 0 - 30 unit/L [facility] Alanine Aminotransferase 12 0 - 30 unit/L [facility] Alkaline Phosphatase 93 35 - 105 unit/L [facility] Bilirubin, Total 0.3 0.2 - 1.3 mg/dL [facility] Est Glomerular Filtration Rate 80 >=60 mL/min/1. 73 m?? [facility] Comment: This patient's estimated GFR [...] Lab Alirio Hudson MD CHEMISTRY ORDERABLE S [facility] [place] [address] [place] [address] * (ABNORMAL) Basic Metabolic Panel (non-fasting) (05/22/2023 3:57 AM EDT) Glucose 88 65 - 199 mg/dL [facility] Comment:Diabetes: >=200 mg/d L plus symptoms Blood Urea Nitrogen 21(H) 8 - 18 mg/dL [facility] Creatinine 0.69(L) 0.70 - 1.20 mg/dL [facility] Sodium 136 135 - 145 mmol/L [facility] Potassium 3.6 3.5 - 5.0 mmol/L [facility] Comment: Please note: ??Patients with WBC >100,000 may have falsely elevated Potassium levels. ??For accurate Potassium quantification in these patients send serum separator tube (gold top) for subsequent determinations. ??Contact the Clinical Chemistry Laboratory if there are any questions. Chloride 102 98 - 107 mmol/L [facility] Carbon Dioxide 23 22 - 31 mmol/L [facility] Anion Gap 11 5 - 15 mmol/L [facility] Calcium 8.6 8.5 - 10.5 mg/dL [facility] Est Glomerular Filtration Rate 95 >=60 mL/min/1. 73 m?? [facility] Comment: This patient's estimated GFR [...] Lab Mara Serrano ANURAG CHEMISTRY ORDERABL ES [facility] [address] [place] [address] * (ABNORMAL) Basic Metabolic Panel (non-fasting) (05/21/2023 5:06 AM EDT) Glucose 87 65 - 199 mg/dL [facility] Comment:Diabetes: >=200 mg/d L plus symptoms Blood Urea Nitrogen 25(H) 8 - 18 mg/dL [facility] Creatinine 0.84 0.70 - 1.20 mg/dL [facility] Sodium 136 135 - 145 mmol/L [facility] Potassium 3.6 3.5 - 5.0 mmol/L [facility] Comment: Please note: ??Patients with WBC >100,000 may have falsely elevated Potassium levels. ??For accurate Potassium quantification in these patients send serum separator tube (gold top) for subsequent determinations. ??Contact the Clinical Chemistry Laboratory if there are any questions. Chloride 102 98 - 107 mmol/L [facility] Carbon Dioxide 26 22 - 31 mmol/L [facility] Anion Gap 8 5 - 15 mmol/L [facility] Calcium 8.9 8.5 - 10.5 mg/dL [facility] Est Glomerular Filtration Rate 76 >=60 mL/min/1. 73 m?? [facility] Comment: This patient's estimated GFR [...] Narrative Resulting Agency Comment Spec In Lab [facility] [place] RESOURCING ADVISOR CHEMISTRY ORDERABL ES Performing Organization Address City/[facility]/ZIP Co de Phone Number [facility] [place] [address] * Lavender Tube HOLD (05/20/2023 2:52 AM EDT) Lavender Hold Sample in lab. [facility] Blood Venous Draw / Unknown 05/20/2023 2:52 AM EDT 05/20/2023 3:04 AM EDT [facility] [place] RESOURCING ADVISOR HEMATOLOGY ORDERAB LES Performing Organization Address City/[facility]/ZIP Co de Phone Number [facility] [place] [address] * (ABNORMAL) Basic Metabolic Panel (non-fasting) (05/20/2023 2:52 AM EDT) Glucose 152 65 - 199 mg/dL [facility] Comment:Diabetes: >=200 mg/d L plus symptoms Blood Urea Nitrogen 33(H) 8 - 18 mg/dL [facility] Creatinine 0.82 0.70 - 1.20 mg/dL [facility] Sodium 137 135 - 145 mmol/L [facility] Potassium 3.7 3.5 - 5.0 mmol/L [facility] Comment: Please note: ??Patients with WBC >100,000 may have falsely elevated Potassium levels. ??For accurate Potassium quantification in these patients send serum separator tube (gold top) for subsequent determinations. ??Contact the Clinical Chemistry Laboratory if there are any questions. Chloride 99 98 - 107 mmol/L [facility] Carbon Dioxide 22 22 - 31 mmol/L [facility] Anion Gap 16(H) 5 - 15 mmol/L [facility] Calcium 9.0 8.5 - 10.5 mg/dL [facility] Est Glomerular Filtration Rate 78 >=60 mL/min/1. 73 m?? [facility] Comment: This patient's estimated GFR [...] Agency Comment Spec In Lab Mara [place] RESOURCING ADVISOR CHEMISTRY ORDERABL ES Performing Organization Address [facility] Co de Phone Number [facility] [place] [address] * (ABNORMAL) Potassium (05/20/2023 2:52 AM EDT) [facility] Potassium 3.4(L) 3.5 - 5.0 mmol/L [facility] Comment: Please note: ??Patients with WBC >100,000 may have falsely elevated Potassium levels. ??For accurate Potassium quantification in these patients send serum separator tube (gold top) for subsequent determinations. ??Contact the Clinical Chemistry Laboratory if there are any questions. Blood 05/20/2023 2:52 AM EDT 05/20/2023 3:03 AM EDT Narrative Resulting Agency Comment Spec In Lab Mara [place] RESOURCING ADVISOR CHEMISTRY ORDERABL ES Performing Organization Address [facility] de Phone Number [facility] [place] [address] * XR Chest PA & Lateral (Generic) [...] have questions please contact the health career consultant that requested your imaging first. ? Electronically signed by: Chyna Johnson MD, [facility] ??([phone]), at 05/19/2023 2:19 PM Narrative 05/19/2023 2:19 [...] who have questions please contactthe health career consultant that requested your imaging first. Electronically signed by: Chyna Johnson MD, [facility]([phone]), at 05/19/2023 2:19 PM Alirio Hudson MD IMG DX ORDERABLES * (ABNORMAL) Basic Metabolic Panel (non-fasting) (05/19/2023 5:49 AM EDT) Glucose 93 65 - 199 mg/dL [facility] Comment:Diabetes: >=200 mg/d L plus symptoms Blood Urea Nitrogen 45(H) 8 - 18 mg/dL [facility] Creatinine 1.02 0.70 - 1.20 mg/dL [facility] Sodium 138 135 - 145 mmol/L [facility] Potassium 3.9 3.5 - 5.0 mmol/L [facility] Comment: Please note: ??Patients with WBC >100,000 may have falsely elevated Potassium levels. ??For accurate Potassium quantification in these patients send serum separator tube (gold top) for subsequent determinations. ??Contact the Clinical Chemistry Laboratory if there are any questions. Chloride 102 98 - 107 mmol/L [facility] Carbon Dioxide 26 22 - 31 mmol/L [facility] Anion Gap 10 5 - 15 mmol/L [facility] Calcium 9.7 8.5 - 10.5 mg/dL [facility] Est Glomerular Filtration Rate 60 >=60 mL/min/1. 73 m?? [facility] Comment: This patient's estimated GFR [...] Agency Comment Spec In Lab Mara Serrano RESOURCING [place] [address] * IR Chest Tube Placement Right (05/18/2023 [...] EDT) Glucose 95 65 - 199 mg/dL [facility] Comment:Diabetes: >=200 mg/d L plus symptoms Blood Urea Nitrogen 71(H) 8 - 18 mg/dL [facility] Comment:result rechecked-JSJ Creatinine 1.64(H) 0.70 - 1.20 mg/dL [facility] Comment:result rechecked-JSJ Sodium 137 135 - 145 mmol/L [facility] Potassium 3.7 3.5 - 5.0 mmol/L [facility] Comment: Please note: ??Patients with WBC >100,000 may have falsely elevated Potassium levels. ??For accurate Potassium quantification in these patients send serum separator tube (gold top) for subsequent determinations. ??Contact the Clinical Chemistry Laboratory if there are any questions. Chloride 100 98 - 107 mmol/L [facility] Carbon Dioxide 24 22 - 31 mmol/L [facility] Anion Gap 13 5 - 15 mmol/L [facility] Calcium 9.7 8.5 - 10.5 mg/dL [facility] Est Glomerular Filtration Rate 34(L) >=60 mL/min/1. 73 m?? [facility] Comment: This patient's estimated GFR [...] Agency Comment Spec In Lab Mara Serrano RESOURCING ADVISOR CHEMISTRY ORDERABL ES [facility] [place] [address] * XR Chest PA & Lateral (Generic) [...] have questions please contact the health career consultant that requested your imaging first. ? Electronically signed by: Ghassan Reyes MD, [facility] ??([phone]), at 05/17/2023 11:46 AM Narrative 05/17/2023 11:46 AM EDT EXAMINATION: XR [...] who have questions please contactthe health career consultant that requested your imaging first. Electronically signed by: Ghassan Reyes MD, [facility]([phone]), at 05/17/2023 11:46 AM Alirio Hudson MD IMG DX ORDERABLES * (ABNORMAL) Comprehensive metabolic panel (non-fasting) (05/17/2023 4:35 AM EDT) Glucose 89 65 - 199 mg/dL [facility] Comment:Diabetes: >=200 mg/d L plus symptoms Blood Urea Nitrogen 97(H) 8 - 18 mg/dL [facility] Creatinine 2.97(H) 0.70 - 1.20 mg/dL [facility] Comment:result rechecked-JSJ Sodium 135 135 - 145 mmol/L [facility] Potassium 4.1 3.5 - 5.0 mmol/L [facility] Comment: Please note: ??Patients with WBC >100,000 may have falsely elevated Potassium levels. ??For accurate Potassium quantification in these patients send serum separator tube (gold top) for subsequent determinations. ??Contact the Clinical Chemistry Laboratory if there are any questions. Chloride 97(L) 98 - 107 mmol/L [facility] Carbon Dioxide 22 22 - 31 mmol/L [facility] Anion Gap 16(H) 5 - 15 mmol/L [facility] Calcium 9.6 8.5 - 10.5 mg/dL [facility] Protein, Total 6.5 6.1 - 8.0 g/dL [facility] Albumin 3.7 3.2 - 5.2 g/dL [facility] Aspartate Aminotransferase 58(H) 0 - 30 unit/L [facility] Alanine Aminotransferase 66(H) 0 - 30 unit/L [facility] Alkaline Phosphatase 86 35 - 105 unit/L [facility] Bilirubin, Total 0.6 0.2 - 1.3 mg/dL [facility] Est Glomerular Filtration Rate 17(L) >=60 mL/min/1. 73 m?? [facility] [facility] Comment: This patient's estimated GFR [...] MD CHEMISTRY ORDERABLE S Performing Organization Address City/State/[facility] Co de Phone Number [facility] [place] [address] * Potassium (05/16/2023 11:15 PM EDT) Potassium 3.7 3.5 - 5.0 mmol/L [facility] Comment: Please note: ??Patients with [...] MD CHEMISTRY ORDERABLE S Performing Organization Address City/[facility]/ZIP Co de Phone Number [facility] [place] [address] * Magnesium (05/16/2023 5:22 PM EDT) Magnesium 0.96 0.69 - 1.07 mmol/L [facility] Blood 05/16/2023 5:22 PM EDT 05/16/2023 5:27 PM EDT Narrative Resulting Agency Comment Spec In Lab Alirio Hudson MD CHEMISTRY ORDERABLE S Performing Organization Address [facility] Co de Phone Number [facility] [place] [address] * (ABNORMAL) Basic Metabolic Panel (non-fasting) (05/16/2023 5:22 PM EDT) Glucose 106 65 - 199 mg/dL [facility] Comment:Diabetes: >=200 mg/d L plus symptoms Blood Urea Nitrogen 103(H) 8 - 18 mg/dL [facility] Creatinine 3.91(H) 0.70 - 1.20 mg/dL [facility] Comment:result rechecked-imm Sodium 132(L) 135 - 145 mmol/L [facility] Potassium 3.6 3.5 - 5.0 mmol/L [facility] Comment: Please note: ??Patients with WBC >100,000 may have falsely elevated Potassium levels. ??For accurate Potassium quantification in these patients send serum separator tube (gold top) for subsequent determinations. ??Contact the Clinical Chemistry Laboratory if there are any questions. Chloride 92(L) 98 - 107 mmol/L [facility] Carbon Dioxide 22 22 - 31 mmol/L [facility] Anion Gap 18(H) 5 - 15 mmol/L [facility] Calcium 9.7 8.5 - 10.5 mg/dL [facility] Est Glomerular Filtration Rate 12(L) >=60 mL/min/1. 73 m?? [facility] Comment: This patient's estimated [...] MD CHEMISTRY ORDERABLE S Performing Organization Address [facility] Co de Phone Number [facility] [place] [address] * (ABNORMAL) Potassium (05/16/2023 11:43 AM EDT) Potassium 3.3(L) 3.5 - 5.0 mmol/L [facility] Comment: Please note: ??Patients with [...] MD CHEMISTRY ORDERABLE S Performing Organization Address [facility] Co de Phone Number [facility] [place] [address] * (ABNORMAL) Ferritin (05/16/2023 4:41 AM EDT) Ferritin 1,813(H) 30 - 400 ng/mL [facility] Comment: Pediatric reference ranges not verified at [facility], interpret with caution. Reference ranges for females greater than 50 years of age approach values for men, i.e., 30-400 ng/mL. Blood 05/16/2023 4:41 AM EDT 05/16/2023 4:54 AM EDT Narrative Resulting Agency Comment Spec In Lab Kristopher Ayoub MD CHEMISTRY ORDERABLES Performing Organization Address City/[facility]/ZIP Co de Phone Number [facility] [place] [address] * (ABNORMAL) PTH (05/16/2023 4:41 AM EDT) Parathyroid Hormone 120(H) 15 - 65 pg/mL [facility] Blood 05/16/2023 4:41 AM EDT 05/16/2023 4:54 AM EDT Narrative Resulting Agency Comment Spec In Lab Kristopher Ayoub MD CHEMISTRY ORDERABLES Performing Organization Address [facility] Co de Phone Number [facility] [place] [address] * Vitamin D, 25-Hydroxy (05/16/2023 4:41 AM EDT) Vitamin D Total 25 OH 33 21 - 100 ng/mL [facility] Vit D Interp Sufficient [facility] Blood 05/16/2023 4:41 AM EDT 05/16/2023 4:54 AM EDT Narrative Resulting Agency Comment Spec In Lab Kristopher Ayoub MD CHEMISTRY ORDERABLES Performing Organization Address City/[facility] Co de Phone Number [facility] [place] [address] * (ABNORMAL) Blood Gas Venous ([facility]) (05/16/2023 4:22 AM EDT) pH, Venous 7.41 7.32 - 7.42 [facility] PCO2, Venous 32(L) 41 - 51 mmHg [facility] PO2, Venous 73(H) 25 - 40 mmHg [facility] Bicarbonate, Venous 19.6 mmol/L [facility] Base Excess, Venous -5.1 mmol/L [facility] Hgb Blood Gas 9.7(L) 11.7 - 15.5 g/dL [facility] Oxyhemoglobin, Venous 92.8 % [facility] Carboxyhemoglob in, Venous 0.1 % [facility] Comment: Nonsmokers: 0.5-1.5% COHB Smokers: Variable, but usually less than 10% Toxic: 20-30% COHB Lethal: Greater than 60% COHB Methemoglobin, Venous 0.3 <=1.5 % [facility] Na Whole Blood 130(L) 135 - 145 mmol/L [facility] K Whole Blood 3.7 3.5 - 5.0 mmol/L [facility] Comment: Please note: Patients with WBC >100,000 may have falsely elevated Potassium levels. Contact the Clinical Chemistry Laboratory if there are any questions. ICa Whole Blood 1.15 1.15 - 1.33 mmol/L [facility] Comment: Note: ??Total bilirubin higher than 20 mg/dL may lead to falsely low ionized calcium. CL Whole Blood 95(L) 98 - 107 mmol/L [facility] Gluc Whole Bld 82 65 - 199 mg/dL [facility] Comment:Diabetes: >=200 mg/d L plus symptoms Lactate WB 1.1 0.5 - 2.2 mmol/L [facility] Blood Gas Source Venous [facility] Blood Venous Draw / Unknown 05/16/2023 4:22 AM EDT 05/16/2023 4:31 AM EDT Narrative Resulting Agency Comment Spec In Lab Bonita TOBAR CHEMISTRY ORDERABLES [facility] [place] [address] * (ABNORMAL) Differential, Automated (05/16/2023 4:20 AM EDT) Neutrophil % 84.1 % [facility] Neutrophil Absolute 6.22(H) 1.70 - 6.10 x10(3)/mc L [facility] Lymph % 5.8 % [facility] Lymphocytes Abs 0.4(L) 0.9 - 3.2 x10(3)/mc L [facility] Monocyte % 8.8 % [facility] Monocyte Abs 0.6 0.3 - 0.9 x10(3)/mc L [facility] Eos % 0.4 % [facility] Eosinophils Abs 0.0 0.0 - 0.4 x10(3)/mc L [facility] Basophil % 0.0 % [facility] Baso Absolute 0.0 0.0 - 0.1 x10(3)/mc L [facility] Immature Gran % 0.90 % [facility] Comment: Immature granulocytes(IG's)percentage and absolute count will include metamyelocytes, myelocytes, and promyelocytes. Blood smears from CBCs yielding IG's will be scanned manually for concordance. If this scan disagrees with the automated IG or if promyelocytes are noted, a manual differential will be performed. Immature Gran Absolute 0.07(H) 0.00 - 0.04 x10(3)/mc L [facility] Blood 05/16/2023 4:20 AM EDT 05/16/2023 4:29 AM EDT Narrative Resulting Agency Comment Spec In Lab James Agustin MD HEMATOLOGY ORDER JODIE Performing Organization Address City/State/[facility] Co de Phone Number [facility] [place] [address] * (ABNORMAL) Hemogram (05/16/2023 4:20 AM EDT) White Blood Cell 7.4 4.0 - 9.5 x10(3)/mc L [facility] Red Blood Cell 2.40(L) 4.00 - 5.21 x10(6)/mc L [facility] Hemoglobin 7.8(L) 11.7 - 15.5 g/dL [facility] Hematocrit 22.5(L) 35.7 - 45.8 % [facility] Mean Cell Volume 93.8 82.6 - 94.4 fL [facility] Mean Cell Hemoglobin 32.5(H) 27.1 - 32.0 pg [facility] Mean Cell Hemoglobin Concentration 34.7 31.7 - 35.0 g/dL [facility] Platelet 120(L) 145 - 357 x10(3)/mc L [facility] RDW Standard Deviation 42.9 37.0 - 46.0 fL [facility] RDW coefficient of variation 12.9 11.5 - 14.1 % [facility] Mean Platelet Volume 11.3 7.6 - 12.9 fL [facility] NRBC% auto 0.7 % [facility] NRBC Absolute 0.050(H) 0.000 - 0.000 x10(3)/mc L [facility] Blood 05/16/2023 4:20 AM EDT 05/16/2023 4:29 AM EDT Narrative Resulting Agency Comment Spec In Lab James Agustin MD HEMATOLOGY ORDER JODIE [facility] [place] [address] * (ABNORMAL) Basic Metabolic Panel (non-fasting) (05/16/2023 4:20 AM EDT) Glucose 89 65 - 199 mg/dL [facility] Comment:Diabetes: >=200 mg/d L plus symptoms Blood Urea Nitrogen 108(H) 8 - 18 mg/dL [facility] Creatinine 4.74(H) 0.70 - 1.20 mg/dL [facility] Comment:result rechecked-OLIVA Sodium 132(L) 135 - 145 mmol/L [facility] Potassium 3.9 3.5 - 5.0 mmol/L [facility] Comment: Please note: ??Patients with WBC >100,000 may have falsely elevated Potassium levels. ??For accurate Potassium quantification in these patients send serum separator tube (gold top) for subsequent determinations. ??Contact the Clinical Chemistry Laboratory if there are any questions. Chloride 95(L) 98 - 107 mmol/L [facility] Carbon Dioxide 18(L) 22 - 31 mmol/L [facility] Anion Gap 19(H) 5 - 15 mmol/L [facility] Calcium 9.2 8.5 - 10.5 mg/dL [facility] Est Glomerular Filtration Rate 10(L) >=60 mL/min/1. 73 m?? [facility] Comment: This patient's estimated GFR [...] MD CHEMISTRY ORDERABLE S Performing Organization Address [facility] Co de Phone Number [facility] [place] [address] * (ABNORMAL) Iron and TIBC (05/16/2023 4:20 AM EDT) Iron 31 30 - 150 mcg/dL [facility] TIBC 259 250 - 450 mcg/dL [facility] Iron Saturation 12(L) 20 - 50 % [facility] Blood 05/16/2023 4:20 AM EDT 05/16/2023 4:29 AM EDT Narrative Resulting Agency Comment Spec In Lab Kristopher Ayoub MD CHEMISTRY ORDERABLES Performing Organization Address [facility] Co de Phone Number [facility] [place] [address] * (ABNORMAL) Basic Metabolic Panel (non-fasting) (05/15/2023 12:50 AM EDT) Glucose 101 65 - 199 mg/dL [facility] Comment:Diabetes: >=200 mg/d L plus symptoms Blood Urea Nitrogen 109(H) 8 - 18 mg/dL [facility] Creatinine 5.62(H) 0.70 - 1.20 mg/dL [facility] Comment:result rechecked-[place] Sodium 131(L) 135 - 145 mmol/L [facility] Comment:result rechecked-KS Potassium 3.7 3.5 - 5.0 mmol/L [facility] Comment: result rechecked-KS Please note: ??Patients with WBC >100,000 may have falsely elevated Potassium levels. ??For accurate Potassium quantification in these patients send serum separator tube (gold top) for subsequent determinations. ??Contact the Clinical Chemistry Laboratory if there are any questions. Chloride 92(L) 98 - 107 mmol/L [facility] Comment:result rechecked-[place] Carbon Dioxide 18(L) 22 - 31 mmol/L [facility] Comment:result rechecked-[place] Anion Gap 21(H) 5 - 15 mmol/L [facility] Calcium 8.9 8.5 - 10.5 mg/dL [facility] Est Glomerular Filtration Rate 8(L) >=60 mL/min/1. 73 m?? [facility] Comment: This patient's estimated GFR [...] MD CHEMISTRY ORDERABLE S Performing Organization Address City/State/[facility] Co de Phone Number [facility] [place] [address] * (ABNORMAL) Hemogram (05/15/2023 12:50 AM EDT) White Blood Cell 9.1 4.0 - 9.5 x10(3)/mc L [facility] Red Blood Cell 2.19(L) 4.00 - 5.21 x10(6)/mc L [facility] Hemoglobin 7.2(L) 11.7 - 15.5 g/dL [facility] Hematocrit 20.6(L) 35.7 - 45.8 % [facility] Mean Cell Volume 94.1 82.6 - 94.4 fL [facility] Mean Cell Hemoglobin 32.9(H) 27.1 - 32.0 pg [facility] Mean Cell Hemoglobin Concentration 35.0 31.7 - 35.0 g/dL [facility] Platelet 109(L) 145 - 357 x10(3)/mc L [facility] RDW Standard Deviation 43.6 37.0 - 46.0 fL [facility] RDW coefficient of variation 12.9 11.5 - 14.1 % [facility] Mean Platelet Volume 10.4 7.6 - 12.9 fL [facility] NRBC% auto 2.1 % [facility] NRBC Absolute 0.190(H) 0.000 - 0.000 x10(3)/mc L [facility] Blood 05/15/2023 12:5 0 AM EDT 05/15/2023 12:52 AM EDT Narrative Resulting Agency Comment Spec In Lab Alirio Hudson MD HEMATOLOGY ORDERABL ES Performing Organization Address City/State/[facility] Co de Phone Number [facility] [place] [address] * (ABNORMAL) BLOOD GAS 2 VENOUS (05/15/2023 12:49 AM EDT) pH, Venous 7.33 7.32 - 7.42 [facility] PCO2, Venous 37(L) 41 - 51 mmHg [facility] PO2, Venous 34 25 - 40 mmHg [facility] Bicarbonate, Venous 19.1 mmol/L [facility] Base Excess, Venous -6.8 mmol/L [facility] Hgb Blood Gas 10.8(L) 11.7 - 15.5 g/dL [facility] Oxyhemoglobin, Venous 58.1 % [facility] Carboxyhemoglob in, Venous 0.3 % [facility] Comment: Nonsmokers: 0.5-1.5% COHB Smokers: Variable, but usually less than 10% Toxic: 20-30% COHB Lethal: Greater than 60% COHB Methemoglobin, Venous 0.6 <=1.5 % [facility] Na Whole Blood 136 135 - 145 mmol/L [facility] K Whole Blood 3.7 3.5 - 5.0 mmol/L [facility] Comment: Please note: Patients with WBC >100,000 may have falsely elevated Potassium levels. Contact the Clinical Chemistry Laboratory if there are any questions. ICa Whole Blood 1.12(L) 1.15 - 1.33 mmol/L [facility] Comment: Note: ??Total bilirubin higher than 20 mg/dL may lead to falsely low ionized calcium. CL Whole Blood 95(L) 98 - 107 mmol/L [facility] Gluc Whole Bld 101 65 - 199 mg/dL [facility] Comment:Diabetes: >=200 mg/d L plus symptoms Lactate WB 1.3 0.5 - 2.2 mmol/L [facility] Flow, Mike 1.0 LPM [facility] Blood Gas Source Venous [facility] Blood 05/15/2023 12:4 9 AM EDT 05/15/2023 12:49 AM EDT Alirio Hudson MD POINT OF CARE TEST ORDERABLES Performing Organization Address City/State/[facility] Co de Phone Number [facility] [place] [address] * US Retroperitoneal Complete (05/14/2023 3:53 PM [...] PM Electronically signed by: Hayden Robledo MD, [facility] ([phone]), at 05/14/2023 4:32 PM Thank you for letting us participate in the care of this patient. If you are a health care provider and have any questions regarding this report, please contact the number above. For patients who have questions, please contact the health career consultant that requested your imaging first. ? Hayden Robledo, Staff Physician Electronically Signed Final Report ?? 05/14/2023 04:39 pm Narrative 05/14/2023 4:39 PM EDT Renal ? (Signed Final 05/14/2023 04:39 pm) PATIENT INFO: ID #: ? [id number] ?: ??[birth year] (67 yrs)(F) Name: ? PURNIMA THACKER ?Visit Date: 05/14/2023 03:44 pm PERFORMED BY: Attending: ?Meena CULP, Hayden Stafford Resident: ? Nell CULP, Anand August Performed By: ? Consuelo Tello RDMS Referred By: ?ALIRIO Powell BECCA Location: ? [place] SERVICE(S) PROVIDED: URETRO - Retroperitoneal Complete - [id number] ? [id number] INDICATIONS: EVANS COMPARISON: CT: Abdomen/Pelvis 05/11/23 RIGHT [...] 05/14/2023 04:39 pm) PATIENT INFO: ID #: [id number] : 55 (67 yrs)(F) Name: PURNIMA THACKER Visit Date: 05/14/2023 03:44 pm PERFORMED BY: Attending: Hayden Robledo MD Resident: Anand Camejo MD Performed By: Consuelo Tello RDMS Referred By: ALIRIO HUDSON Location: [place] SERVICE(S) PROVIDED: URETRO - Retroperitoneal Complete - [id number] INDICATIONS: EVANS COMPARISON: CT: Abdomen/Pelvis 05/11/23 RIGHT [...] PM Electronically signed by: Hayden Robledo MD, [facility] ([phone]), at 05/14/2023 4:32 PM Thank you for letting us participate in the care of this patient. If you are a health care provider and have any questions regarding this report, please contact the number above. For patients who have questions, please contact the health career consultant that requested your imaging first. Hayden Robledo, Staff Physician Electronically Signed Final Report 05/14/2023 04:39 pm Alirio Hudson MD IMG US GEN ORDERABL ES * CK (05/14/2023 3:17 PM EDT) Pathologist [facility] Creatine Kinase 123 0 - 160 unit/L [facility] Blood 05/14/2023 3:17 PM EDT 05/14/2023 3:31 PM EDT Narrative Resulting Agency Comment Spec In Lab Alirio Hudson MD CHEMISTRY ORDERABLE S Performing Organization Address City/[facility]/ZIP Co de Phone Number [facility] [place] [address] * (ABNORMAL) Uric acid (05/14/2023 3:17 PM EDT) [facility] Uric Acid 14.9(H) 2.5 - 6.5 mg/dL [facility] Blood 05/14/2023 3:17 PM EDT 05/14/2023 3:31 PM EDT Narrative Resulting Agency Comment Spec In Lab Alirio Hudson MD CHEMISTRY ORDERABLE S Performing Organization Address [facility] Co de Phone Number [facility] [place] [address] * (ABNORMAL) Osmolality (05/14/2023 3:17 PM EDT) Pathologist [facility] Osmolality 311(H) 275 - 295 mOsm/kg [facility] Blood 05/14/2023 3:17 PM EDT 05/14/2023 3:31 PM EDT Narrative Resulting Agency Comment Spec In Lab Alirio Hudson MD CHEMISTRY ORDERABLE S Performing Organization Address [facility] Co de Phone Number [facility] [place] [address] * (ABNORMAL) Differential, Automated (05/14/2023 1:10 AM EDT) Neutrophil % 87.2 % [facility] Neutrophil Absolute 9.74(H) 1.70 - 6.10 x10(3)/mc L [facility] Lymph % 3.9 % [facility] Lymphocytes Abs 0.4(L) 0.9 - 3.2 x10(3)/mc L [facility] Monocyte % 7.9 % [facility] Monocyte Abs 0.9 0.3 - 0.9 x10(3)/ L [facility] Eos % 0.0 % [facility] Eosinophils Abs 0.0 0.0 - 0.4 x10(3)/ L [facility] Basophil % 0.1 % [facility] Baso Absolute 0.0 0.0 - 0.1 x10(3)/ L [facility] Immature Gran % 0.90 % [facility] Comment: Immature granulocytes(IG's)percentage and absolute count will include metamyelocytes, myelocytes, and promyelocytes. Blood smears from CBCs yielding IG's will be scanned manually for concordance. If this scan disagrees with the automated IG or if promyelocytes are noted, a manual differential will be performed. Immature Gran Absolute 0.10(H) 0.00 - 0.04 x10(3)/ L [facility] Blood 05/14/2023 1:10 AM EDT 05/14/2023 1:24 AM EDT Narrative Resulting Agency Comment Spec In Lab Bonita TOBAR HEMATOLOGY ORDERABLE S Performing Organization Address City/State/[facility] Co de Phone Number [facility] [place] [address] * (ABNORMAL) Hemogram (05/14/2023 1:10 AM EDT) White Blood Cell 11.2(H) 4.0 - 9.5 x10(3)/mc L [facility] Red Blood Cell 2.19(L) 4.00 - 5.21 x10(6)/ L [facility] Hemoglobin 7.2(L) 11.7 - 15.5 g/dL [facility] Hematocrit 20.3(L) 35.7 - 45.8 % [facility] Mean Cell Volume 92.7 82.6 - 94.4 fL [facility] Mean Cell Hemoglobin 32.9(H) 27.1 - 32.0 pg [facility] Mean Cell Hemoglobin Concentration 35.5(H) 31.7 - 35.0 g/dL [facility] Platelet 112(L) 145 - 357 x10(3)/mc L [facility] RDW Standard Deviation 41.4 37.0 - 46.0 fL [facility] RDW coefficient of variation 12.5 11.5 - 14.1 % [facility] Mean Platelet Volume 10.4 7.6 - 12.9 fL [facility] NRBC% auto 1.5 % [facility] NRBC Absolute 0.170(H) 0.000 - 0.000 x10(3)/mc L [facility] Blood 05/14/2023 1:10 AM EDT 05/14/2023 1:24 AM EDT Narrative Resulting Agency Comment Spec In Lab [facility] HEMATOLOGY ORDERABLE S Performing Organization Address City/State/[facility] Co de Phone Number [facility] [place] [address] * (ABNORMAL) Comprehensive metabolic panel (non-fasting) (05/14/2023 1:10 AM EDT) Glucose 120 65 - 199 mg/dL [facility] Comment:Diabetes: >=200 mg/d L plus symptoms Blood Urea Nitrogen 98(H) 8 - 18 mg/dL [facility] Creatinine 4.80(H) 0.70 - 1.20 mg/dL [facility] Comment:result rechecked-ssc Sodium 132(L) 135 - 145 mmol/L [facility] Potassium 4.1 3.5 - 5.0 mmol/L [facility] Comment: Please note: ??Patients with WBC >100,000 may have falsely elevated Potassium levels. ??For accurate Potassium quantification in these patients send serum separator tube (gold top) for subsequent determinations. ??Contact the Clinical Chemistry Laboratory if there are any questions. Chloride 94(L) 98 - 107 mmol/L [facility] Carbon Dioxide 18(L) 22 - 31 mmol/L [facility] Anion Gap 20(H) 5 - 15 mmol/L [facility] Calcium 8.5 8.5 - 10.5 mg/dL [facility] [facility] Protein, Total 5.8(L) 6.1 - 8.0 g/dL [facility] Albumin 3.6 3.2 - 5.2 g/dL [facility] Aspartate Aminotransferase 319(H) 0 - 30 unit/L [facility] Alanine Aminotransferase 437(H) 0 - 30 unit/L [facility] Alkaline Phosphatase 86 35 - 105 unit/L [facility] Bilirubin, Total 0.4 0.2 - 1.3 mg/dL [facility] Est Glomerular Filtration Rate 9(L) >=60 mL/min/1. 73 m?? [facility] Comment: This patient's estimated GFR [...] MD CHEMISTRY ORDERABLE S Performing Organization Address City/[facility] [place] [address] * APTT (05/13/2023 10:15 AM EDT) Partial Thromboplastin Time 27 25 - 37 sec [facility] Comment: The PTT is NOT appropriate for heparin monitoring. Use the Anti-Xa level for heparin monitoring (HEP UFH) or LMWH monitoring (HEP LMW). A PTT less than 37 seconds generally indicates adequate hemostasis. Blood 05/13/2023 10:1 5 AM EDT 05/13/2023 10:46 AM EDT Narrative Resulting Agency Comment Spec In Lab Alirio Hudson MD HEMATOLOGY ORDERABL ES Performing Organization Address City/[facility]/ZIP Co de Phone Number [facility] [place] [address] * (ABNORMAL) Prothrombin Time (05/13/2023 10:15 AM EDT) Prothrombin Time 14.6(H) 9.4 - 12.5 sec [facility] International Normalization Ratio 1.3 [facility] Comment: An INR <2.0 indicates [...] Lab Alirio Hudson MD HEMATOLOGY ORDERABL ES [facility] [place] [address] * EKG 12 Lead (05/13/2023 9:22 AM EDT) Ventricular rate 92 BPM MUSE SYSTEM Atrial Rate 92 BPM MUSE SYSTEM P-R Interval 140 ms MUSE SYSTEM QRS Duration 104 ms MUSE SYSTEM Q-T Interval 384 ms MUSE SYSTEM QTC Calculated (Bezet) 474 ms MUSE SYSTEM Calculated P [place] 33 degrees MUSE SYSTEM Calculated R [place] 41 degrees MUSE SYSTEM Calculated T [place] -35 degrees MUSE SYSTEM INTERPRETATION Sinus rhythm with frequent Premature ventricular complexes Septal infarct , age undetermined ST & T wave abnormality, consider lateral ischemia Abnormal ECG When compared with ECG of 12-MAY-2023 10:10, Premature ventricular complexes are now Present I personally reviewed the tracing and edited the fellows interpretation Confirmed by fellow MD Anitha, Carissa ([id number]) on 05/13/2023 3:25:30 PM Confirmed by Maxx Best ([id number]) on 05/13/2023 8:30:56 PM MUSE SYSTEM 05/13/2023 9:22 AM EDT 05/13/2023 8:30 PM EDT Alirio Hudson MD ECG ORDERABLES MUSE SYSTEM * (ABNORMAL) Differential, Automated (05/13/2023 1:15 AM EDT) Neutrophil % 88.1 % [facility] Neutrophil Absolute 7.62(H) 1.70 - 6.10 x10(3)/mc L [facility] Lymph % 3.1 % [facility] Lymphocytes Abs 0.3(L) 0.9 - 3.2 x10(3)/mc L [facility] Monocyte % 7.9 % [facility] Monocyte Abs 0.7 0.3 - 0.9 x10(3)/mc L [facility] Eos % 0.0 % [facility] Eosinophils Abs 0.0 0.0 - 0.4 x10(3)/mc L [facility] Basophil % 0.1 % [facility] Baso Absolute 0.0 0.0 - 0.1 x10(3)/mc L [facility] Immature Gran % 0.80 % [facility] Comment: Immature granulocytes(IG's)percentage and absolute count will include metamyelocytes, myelocytes, and promyelocytes. Blood smears from CBCs yielding IG's will be scanned manually for concordance. If this scan disagrees with the automated IG or if promyelocytes are noted, a manual differential will be performed. Immature Gran Absolute 0.07(H) 0.00 - 0.04 x10(3)/mc L [facility] Blood 05/13/2023 1:15 AM EDT 05/13/2023 1:29 AM EDT Narrative Resulting Agency Comment Spec In Lab Lorri TOBAR HEMATOLOGY ORDERABLE S [facility] [place] [address] * (ABNORMAL) Hemogram (05/13/2023 1:15 AM EDT) White Blood Cell 8.6 4.0 - 9.5 x10(3)/mc L [facility] Red Blood Cell 2.37(L) 4.00 - 5.21 x10(6)/mc L [facility] Hemoglobin 7.8(L) 11.7 - 15.5 g/dL [facility] Hematocrit 22.2(L) 35.7 - 45.8 % [facility] Mean Cell Volume 93.7 82.6 - 94.4 fL [facility] Mean Cell Hemoglobin 32.9(H) 27.1 - 32.0 pg [facility] Mean Cell Hemoglobin Concentration 35.1(H) 31.7 - 35.0 g/dL [facility] Platelet 130(L) 145 - 357 x10(3)/mc L [facility] RDW Standard Deviation 41.7 37.0 - 46.0 fL [facility] RDW coefficient of variation 12.5 11.5 - 14.1 % [facility] Mean Platelet Volume 10.2 7.6 - 12.9 fL [facility] NRBC% auto 0.5 % [facility] NRBC Absolute 0.040(H) 0.000 - 0.000 x10(3)/mc L [facility] Blood 05/13/2023 1:15 AM EDT 05/13/2023 1:29 AM EDT Narrative Resulting Agency Comment Spec In Lab Lorri TOBAR HEMATOLOGY ORDERABLE S [facility] [place] [address] * (ABNORMAL) Hepatic Function Panel (05/13/2023 1:15 AM EDT) Protein, Total 5.5(L) 6.1 - 8.0 g/dL [facility] Albumin 3.0(L) 3.2 - 5.2 g/dL [facility] Aspartate Aminotransferase 792(H) 0 - 30 unit/L [facility] Alanine Aminotransferase 903(H) 0 - 30 unit/L [facility] Alkaline Phosphatase 85 35 - 105 unit/L [facility] Bilirubin, Total 0.5 0.2 - 1.3 mg/dL [facility] Bilirubin, Direct 0.3 0.0 - 0.3 mg/dL [facility] Blood 05/13/2023 1:15 AM EDT 05/13/2023 1:29 AM EDT Narrative Resulting Agency Comment Spec In Lab Alirio Hudson MD CHEMISTRY ORDERABLE S [facility] [place] [address] * (ABNORMAL) Basic Metabolic Panel (non-fasting) (05/13/2023 1:15 AM EDT) Glucose 107 65 - 199 mg/dL [facility] Comment:Diabetes: >=200 mg/d L plus symptoms Blood Urea Nitrogen 82(H) 8 - 18 mg/dL [facility] Creatinine 3.15(H) 0.70 - 1.20 mg/dL [facility] Comment:result rechecked-OG Sodium 132(L) 135 - 145 mmol/L [facility] Potassium 3.8 3.5 - 5.0 mmol/L [facility] Comment: Please note: ??Patients with WBC >100,000 may have falsely elevated Potassium levels. ??For accurate Potassium quantification in these patients send serum separator tube (gold top) for subsequent determinations. ??Contact the Clinical Chemistry Laboratory if there are any questions. Chloride 95(L) 98 - 107 mmol/L [facility] Carbon Dioxide 20(L) 22 - 31 mmol/L [facility] Anion Gap 17(H) 5 - 15 mmol/L [facility] Calcium 8.3(L) 8.5 - 10.5 mg/dL [facility] Est Glomerular Filtration Rate 16(L) >=60 mL/min/1. 73 m?? [facility] Comment: This patient's estimated GFR [...] Lab Alirio Hudson MD CHEMISTRY ORDERABLE S [facility] [place] [address] * (ABNORMAL) BLOOD GAS 2 ARTERIAL (05/12/2023 3:57 PM EDT) pH, Arterial 7.39 7.35 - 7.45 [facility] PCO2, Arterial 33(L) 35 - 45 mmHg [facility] PO2, Arterial 101 85 - 104 mmHg [facility] Bicarbonate, Arterial 19.5(L) 20.0 - 26.0 mmol/L [facility] Base Excess, Arterial -5.5(L) -3.0 - 3.0 mmol/L [facility] Hgb Blood Gas 9.8(L) 11.7 - 15.5 g/dL [facility] Oxyhemoglobin, Arterial 95.2 94.0 - 97.0 % [facility] Carboxyhemoglob in, Arterial 0.2 % [facility] Comment: Nonsmokers: 0.5-1.5% COHB Smokers: Variable, but usually less than 10% Toxic: 20-30% COHB Lethal: Greater than 60% COHB Methemoglobin, Arterial 0.8 <=1.5 % [facility] Na Whole Blood 129(L) 135 - 145 mmol/L [facility] K Whole Blood 3.8 3.5 - 5.0 mmol/L [facility] Comment: Please note: Patients with WBC >100,000 may have falsely elevated Potassium levels. Contact the Clinical Chemistry Laboratory if there are any questions. ICa Whole Blood 1.05(L) 1.15 - 1.33 mmol/L [facility] Comment: Note: ??Total bilirubin higher than 20 mg/dL may lead to falsely low ionized calcium. CL Whole Blood 96(L) 98 - 107 mmol/L [facility] Gluc Whole Bld 178 65 - 199 mg/dL [facility] Comment:Diabetes: >=200 mg/d L plus symptoms. Lactate WB 1.5 0.5 - 2.2 mmol/L [facility] FIO2 Art 40 % [facility] PF Ratio Art 252 [facility] Blood 05/12/2023 3:57 PM EDT 05/12/2023 3:57 PM EDT Alirio Hudson MD POINT OF CARE TEST ORDERABLES Performing Organization Address [facility] Co de Phone Number [facility] [place] [address] * (ABNORMAL) Coox2 (05/12/2023 2:25 PM EDT) pO2, Coox 37 mmHg [facility] Hgb Blood Gas 9.5(L) 11.7 - 15.5 g/dL [facility] Oxyhemoglobin, Coox 59.9 % [facility] Carboxyhemoglo bin, Coox 0.3 % [facility] Comment: Nonsmokers: 0.5-1.5% COHB Smokers: Variable, but usually less than 10% Toxic: 20-30% COHB Lethal: Greater than 60% COHB Methemoglobin, Coox 0.7 <=1.5 % [facility] Source Coox Mixed Venous [facility] Blood 05/12/2023 2:25 PM EDT 05/12/2023 2:25 PM EDT Alirio Hudson MD POINT OF CARE TEST ORDERABLES Performing Organization Address City/[facility] Co de Phone Number [facility] [place] [address] * (ABNORMAL) BLOOD GAS 2 ARTERIAL (05/12/2023 2:23 PM EDT) pH, Arterial 7.37 7.35 - 7.45 [facility] PCO2, Arterial 36 35 - 45 mmHg [facility] PO2, Arterial 102 85 - 104 mmHg [facility] Bicarbonate, Arterial 20.4 20.0 - 26.0 mmol/L [facility] Base Excess, Arterial -4.8(L) -3.0 - 3.0 mmol/L [facility] Hgb Blood Gas 12.7 11.7 - 15.5 g/dL [facility] Oxyhemoglobin, Arterial 95.4 94.0 - 97.0 % [facility] Carboxyhemoglob in, Arterial 0.3 % [facility] Comment: Nonsmokers: 0.5-1.5% COHB Smokers: Variable, but usually less than 10% Toxic: 20-30% COHB Lethal: Greater than 60% COHB Methemoglobin, Arterial 0.7 <=1.5 % [facility] Na Whole Blood 129(L) 135 - 145 mmol/L [facility] K Whole Blood 3.7 3.5 - 5.0 mmol/L [facility] Comment: Please note: Patients with WBC >100,000 may have falsely elevated Potassium levels. Contact the Clinical Chemistry Laboratory if there are any questions. ICa Whole Blood 1.05(L) 1.15 - 1.33 mmol/L [facility] Comment: Note: ??Total bilirubin higher than 20 mg/dL may lead to falsely low ionized calcium. CL Whole Blood 95(L) 98 - 107 mmol/L [facility] Gluc Whole Bld 168 65 - 199 mg/dL [facility] Comment:Diabetes: >=200 mg/d L plus symptoms. Lactate WB 1.8 0.5 - 2.2 mmol/L [facility] FIO2 Art 40 % [facility] PF Ratio Art 255 [facility] Blood 05/12/2023 2:23 PM EDT 05/12/2023 2:23 PM EDT Alirio Hudson MD POINT OF CARE TEST ORDERABLES Performing Organization Address City/State/[facility] Co de Phone Number [facility] [place] [address] * (ABNORMAL) Troponin (05/12/2023 2:05 PM EDT) Troponin-T, High Sensitivity 1,022(H) <=14 ng/L [facility] Comment: This patient's troponin T [...] [facility] Test Catalog Reference: Fourth Aurora Definition of Myocardial Infarction. Journal of the [employer] 2018;72:6575-4568 Blood 05/12/2023 2:05 PM EDT 05/12/2023 2:14 PM EDT Narrative Resulting Agency Comment Spec In Lab Alirio Hudson MD CHEMISTRY ORDERABLE S Performing Organization Address [facility] Co de Phone Number [facility] [place] [address] * (ABNORMAL) Hemoglobin (05/12/2023 2:05 PM EDT) Hemoglobin 8.5(L) 11.7 - 15.5 g/dL [facility] Blood 05/12/2023 2:05 PM EDT 05/12/2023 2:14 PM EDT Narrative Resulting Agency Comment Spec In Lab Alirio Hudson MD HEMATOLOGY ORDERABL ES Performing Organization Address [facility] Co de Phone Number [facility] [place] [address] * Potassium (05/12/2023 2:05 PM EDT) Potassium 3.9 3.5 - 5.0 mmol/L [facility] Comment: Please note: ??Patients with [...] MD CHEMISTRY ORDERABLE S Performing Organization Address City/State/[facility] Co de Phone Number [facility] [place] [address] * (ABNORMAL) BLOOD GAS 2 ARTERIAL (05/12/2023 11:05 AM EDT) pH, Arterial 7.34(L) 7.35 - 7.45 [facility] PCO2, Arterial 42 35 - 45 mmHg [facility] PO2, Arterial 73(L) 85 - 104 mmHg [facility] Bicarbonate, Arterial 22.1 20.0 - 26.0 mmol/L [facility] Base Excess, Arterial -3.6(L) -3.0 - 3.0 mmol/L [facility] Hgb Blood Gas 9.3(L) 11.7 - 15.5 g/dL [facility] Oxyhemoglobin, Arterial 89.3(L) 94.0 - 97.0 % [facility] Carboxyhemoglob in, Arterial 0.2 % [facility] Comment: Nonsmokers: 0.5-1.5% COHB Smokers: Variable, but usually less than 10% Toxic: 20-30% COHB Lethal: Greater than 60% COHB Methemoglobin, Arterial 0.9 <=1.5 % [facility] Na Whole Blood 131(L) 135 - 145 mmol/L [facility] K Whole Blood 3.8 3.5 - 5.0 mmol/L [facility] Comment: Please note: Patients with WBC >100,000 may have falsely elevated Potassium levels. Contact the Clinical Chemistry Laboratory if there are any questions. ICa Whole Blood 1.04(L) 1.15 - 1.33 mmol/L [facility] Comment: Note: ??Total bilirubin higher than 20 mg/dL may lead to falsely low ionized calcium. CL Whole Blood 96(L) 98 - 107 mmol/L [facility] Gluc Whole Bld 152 65 - 199 mg/dL [facility] Comment:Diabetes: >=200 mg/d L plus symptoms. Lactate WB 2.8(H) 0.5 - 2.2 mmol/L [facility] FIO2 Art 40 % [facility] PF Ratio Art 182 [facility] Blood 05/12/2023 11:0 5 AM EDT 05/12/2023 11:05 AM EDT Alirio Hudson MD POINT OF CARE TEST ORDERABLES [facility] [address] [facility] [address] [place] [address] * (ABNORMAL) BLOOD GAS 2 ARTERIAL (05/12/2023 10:14 AM EDT) pH, Arterial 7.18(Criti gabrielle) 7.35 - 7.45 [facility] Comment:Noted by stringed instrument repairer. PCO2, Arterial 45 35 - 45 mmHg [facility] PO2, Arterial 186(H) 85 - 104 mmHg [facility] Bicarbonate, Arterial 16.2(L) 20.0 - 26.0 mmol/L [facility] Base Excess, Arterial -12.2(L) -3.0 - 3.0 mmol/L [facility] Hgb Blood Gas 10.0(L) 11.7 - 15.5 g/dL [facility] Oxyhemoglobin, Arterial 97.0 94.0 - 97.0 % [facility] Carboxyhemoglob in, Arterial 0.2 % [facility] Comment: Nonsmokers: 0.5-1.5% COHB Smokers: Variable, but usually less than 10% Toxic: 20-30% COHB Lethal: Greater than 60% COHB Methemoglobin, Arterial 0.9 <=1.5 % [facility] Na Whole Blood 129(L) 135 - 145 mmol/L [facility] K Whole Blood 3.6 3.5 - 5.0 mmol/L [facility] Comment: Please note: Patients with WBC >100,000 may have falsely elevated Potassium levels. Contact the Clinical Chemistry Laboratory if there are any questions. ICa Whole Blood 1.10(L) 1.15 - 1.33 mmol/L [facility] Comment: Note: ??Total bilirubin higher than 20 mg/dL may lead to falsely low ionized calcium. CL Whole Blood 97(L) 98 - 107 mmol/L [facility] Gluc Whole Bld 161 65 - 199 mg/dL [facility] Comment:Diabetes: >=200 mg/d L plus symptoms. Lactate WB 3.3(H) 0.5 - 2.2 mmol/L [facility] FIO2 Art 100 % [facility] PF Ratio Art 186 [facility] Blood 05/12/2023 10:1 4 AM EDT 05/12/2023 10:14 AM EDT Alirio Hudson MD POINT OF CARE TEST ORDERABLES Performing Organization Address City/[facility] Co de Phone Number [facility] [place] [address] * EKG 12 Lead (05/12/2023 10:10 AM EDT) Ventricular rate 116 BPM MUSE SYSTEM Atrial Rate 116 BPM MUSE SYSTEM P-R Interval 158 ms MUSE SYSTEM QRS Duration 114 ms MUSE SYSTEM Q-T Interval 348 ms MUSE SYSTEM QTC Calculated (Bezet) 483 ms MUSE SYSTEM Calculated P [place] 37 degrees MUSE SYSTEM Calculated R [place] 31 degrees MUSE SYSTEM Calculated T [place] -138 degrees MUSE SYSTEM INTERPRETATION Sinus tachycardia [...] interpretation Confirmed by fellow MD Anuja, Jim ([id number]) on 05/12/2023 1:04:20 PM Confirmed by MD Villareal Danette ([id number]) on 05/12/2023 9:28:34 PM MUSE SYSTEM 05/12/2023 [...] have questions please contact the health career consultant that requested your imaging first. ? Electronically signed by: Chyna Johnson MD, [facility] ??([phone]), at 05/12/2023 10:08 AM Narrative 05/12/2023 10:08 AM EDT EXAMINATION: XR CHEST ONE VIEW CLINICAL HISTORY: Post TAVR TECHNIQUE: 1 view of the chest COMPARISON: Chest radiograph from earlier today FINDINGS: Interval placement of endotracheal tube with tip terminating 2 cm above the shira. Interval placement of enteric tube projecting along the expected course of the esophagus and outside the [id number]. Interval retraction of right IJ approach pulmonary [...] expected course ofthe esophagus and outside the hlxrb-al-curz. Interval retraction of right IJ approach pulmonary [...] who have questions please contactthe health career consultant that requested your imaging first. Electronically signed by: Chyna Johnson MD, [facility]([phone]), at 05/12/2023 10:08 AM Alirio Hudson MD IMG DX ORDERABLES * ECHO LMTD W/O CONTRAST W LMTD SPEC DOPP COLOR DOPP (05/12/2023 9:23 AM EDT) EF 20 HEARTLAB SYSTEM Anatomical Region Laterality Modality Cardiac Other 05/12/2023 7:33 AM EDT Narrative 05/12/2023 10:18 AM EDT ? Echocardiogram Report Name: PURNIMA THACKER ?Study Date: 05/12/2023 07:33 AMBP: 96/63 mmHg ? Patient Location: [place] CA06 A : 1955 ? Height: 154 cm ? Account: [id number] Age: 67 yrs ? Weight: 75 kg Gender: Female ?BSA: 1.7 m2 Ordering Physician: RADHA HOLLINS Referring Physician: RADHA HOLLINS Performed By: Dilma Bee RDCS Reason For Study: Guidance for TAVR procedure Exam Location: [facility]. Interpretation Summary PRE TAVR: There is severe [...] mL/m2. POST TAVR: Normal function of the vgutv-iq-jfrev prosthesis. See below for hemodynamic parameters. Slight improvement in left and right ventricular systolic function. LVEF now 20-25%. No pericardial effusion. See report for additional findings. Procedure Limited - 58857. Doppler - 99543. Color Doppler - 37721. Left Ventricle Left ventricle is of normal [...] Date: 307:33 AMBP: 96/63 mmHg Patient Location: [address] : 1955 Height: 154 cm Account: [id number] Age: 67 yrs Weight: 75 kg Gender: Female BSA: 1.7 m2 Ordering Physician: RADHA HOLLINS Referring Physician: RADHA HOLLINS Performed By: Dilma Bee RDCS Reason For Study: Guidance for TAVR procedure Exam Location: [facility]. Interpretation Summary PRE TAVR: There is severe [...] 28mL/m2. POST TAVR: Normal function of the cxxjj-we-ljouy prosthesis. See belowfor hemodynamic parameters. Slight improvement in left and right ventricularsystolic function. LVEF now 20-25%. No pericardial effusion. See report for additional findings. Procedure Limited - 35489. Doppler - 23765. Color Doppler - 37837. Left Ventricle Left ventricle is of normal [...] Other Narrative 05/12/2023 2:37 PM EDT ?[facility] ? Cardiac Catheterization/Intervention Report ? Patient Name: Kirstie, Purnima M. ? Procedure Date: 05/12/2023 ? A #: [id number] ? Primary Physician: Antelmo Sharma ? Case #: [id number] ? File Name: [id number] ? Catheterization Order Number: [id number] ? [facility] ? Final Report [place], [place] ? Patient Name: ? Purnima M. Kirstie ? ID#: ?[id number] ? : ?1955 ? Procedure Date: ? May 12, 2023 ? Case #: ? [id number] ? Room: ? 6 ? Case Physicians: ?Antelmo Sharma M.D. ?Start: ?08:03 ?Alirio Hudson M.D. ?Admission: ??05/08/2023 ?Lynda Mcgowan M.D. ? Discharge: ??05/22/2023 ?Fellow: ? Rebekah Tejeda M.D. ? Referring Physician: ??Mario Alberto Chin M.D. ? Procedures: ?* Coronary Angiography ?* Left Heart Catheterization ?* Coronary Stent Insertion ?* Transcatheter Aortic Valve Replacement ?* Vascular Closure Device Deployment ?* Temporary Pacemaker Insertion In Slat Basket Maker ?* Endotracheal Intubation By Non-Cath Physician ?* [...] was designated as ASA Class IV. The [facility] clinical ?frailty scale is 4: Vulnerable. [...] ??A premounted 4.00 x 30 mm Nils [place] (MINNA) was ? deployed with a maximum [...] calculated STS risk score was 30.1%. A efdcg-fl-aezij ?procedure was performed on the pre-existing bioprosthetic stented ?prosthesis. The priority of the chzzs-yd-gkxdr procedure was Elective. ?The procedure was performed [...] Lai 3 Ultra RESILIA 23 mm THV ([id number]/a=[id number]) transcatheter ?valve was inserted using standard technique. [...] to nor was it given in the ?photo lab manager. ?Recommended anti-platelet/anti-thrombotic regimen: ?Continue aspirin 81 mg daily for indefinitely. ?These recommendations are made at the time of the intervention. Patient ?and provider preferences or a changing clinical situation may require ?modification of this regimen. Consult [facility] [place] for ?questions. ? Conclusions: ?* [...] regimen. ? Comments: ?Successful right transfemoral TAVR Kustk-vk-Yxkiw with a 23 mm Lai 3 ?THV. [...] insertion-coronary, access site angiography, ?temporary pacemaker in photo lab manager, intubation-non cath physician, vascular ?closure device, transthoracic echo ??and TAVR. Dr. Alirio Hudson M.D. ?performed the left heart catheterization, access site angiography, ?temporary pacemaker in photo lab manager, vascular closure device, transthoracic ?echo , TAVR and CPR during cath. Dr. Lynda Mcgowan M.D. performed the ABG, ?anesthesia and intubation-non cath physician. ? Antelmo Sharma M.D. ? Electronically Signed by: Antelmo Sharma M.D. ? Report Finalized: 05/12/2023 ??14:31 ? Report Last Ammended: 07/01/2023 ??11:30 ? Procedure Note Antelmo Sharma MD - 07/01/2023 [facility] Cardiac Catheterization/Intervention Report Patient Name: Purnima Thacker Procedure Date: 05/12/2023 A #: [id number] Primary Physician: Antelmo Sharma Case #: [id number] File Name: [id number] Catheterization Order Number: [id number] [facility] FinalReport [place], [place] Patient Name: Purnima Thacker ID#:[id number] :[id number] Procedure Date: May 12, 2023 Case #: [id number] Room: 6 Case Physicians: Antelmo Sharma M.D. Start: 08:03 Alirio Hudson M.D. Admission:05/08/2023 Lynda Mcgowan M.D. Discharge:05/22/2023 Fellow: Rebekah Tejeda M.D. Referring Physician: Mario Alberto Chin M.D. Procedures: * Coronary Angiography * Left Heart Catheterization * Coronary Stent Insertion * Transcatheter Aortic Valve Replacement * Vascular Closure Device Deployment * Temporary Pacemaker Insertion In Slat Basket Maker * Endotracheal Intubation By Non-Cath Physician * [...] A premounted 4.00 x 30 mm Nils Newport (MINNA) was deployed with a maximum inflation [...] calculated STS risk score was 30.1%. A wakzr-tf-dnogq procedure was performed on the pre-existing bioprosthetic stented prosthesis. The priority of the hwuvp-qk-sqihc procedure wasElective. The procedure was performed under Moderate sedation performed byLynda Mcgowan M.D. (see anesthesia report for additional details). Alirio Hudson M.D. participated in the case (see Cardiac Surgery reportfor additional details). The TAVR sheath was a 14 Fr Corona eSheath Introducer and theaccess site was femoral. Rapid ventricular pacing was performed. An Corona Lai 3 Ultra RESILIA 23 mm THV (s/a=[id number])transcatheter valve was inserted using standard technique. The [...] prior to nor was it given inthe photo lab manager. Recommended anti-platelet/anti-thrombotic regimen: Continue aspirin 81 mg daily for indefinitely. These recommendations are made at the time of the intervention.Patient and provider preferences or a changing clinical situation mayrequire modification of this regimen. Consult [facility] Interventional Cardiologyfor questions. Conclusions: * Nonobstructive disease [...] this regimen. Comments: Successful right transfemoral TAVR Pufmh-hd-Pqsxj with a 23 mmSapien 3 THV. We [...] insertion-coronary, access site angiography, temporary pacemaker in photo lab manager, intubation-non cath physician,vascular closure device, transthoracic echo and TAVR. Dr. Alirio Hudson M.D. performed the left heart catheterization, access site angiography, temporary pacemaker in photo lab manager, vascular closure device,transthoracic echo , TAVR [...] pH, POC 7.20(Crit ical) 7.35 - 7.45 [facility] Comment:Critical value OK, C C Lab. pCO2, POC 42 35 - 45 mmHg [facility] pO2, POC 260(H) 85 - 104 mmHg [facility] Base Excess, POC -11.0(L) -3.0 - 3.0 mmol/L [facility] Bicarbonate, POC 16.7(L) 20.0 - 26.0 mmol/L [facility] Sodium, POC 129(L) 135 - 145 mmol/L [facility] POC Potassium 3.8 3.5 - 5.0 mmol/L [facility] Ionized Calcium, POC 1.12(L) 1.15 - 1.33 mmol/L [facility] POC Hematocrit 23.0(L) 34.0 - 45.0 % [facility] POC Calc Hgb 7.8(L) 11.2 - 15.7 g/dL [facility] Comment:The calculation of h emoglobin from hematocrit assumes a normal MCHC. POC Bgas Loc CC Lab [facility] Blood 05/12/2023 8:50 AM EDT 05/13/2023 12:00 PM EDT Alirio Hudson MD CHEMISTRY ORDERABLE S [facility] [place] [address] * (ABNORMAL) Point of Care Blood Gas Historical (05/12/2023 8:10 AM EDT) pH, POC 7.27(Crit ical) 7.35 - 7.45 [facility] Comment:Critical value OK, C C Lab. pCO2, POC 37 35 - 45 mmHg [facility] pO2, POC 29(Critic al) 85 - 104 mmHg [facility] Comment:Critical value OK, C C Lab. Base Excess, POC -10.0(L) -3.0 - 3.0 mmol/L [facility] Bicarbonate, POC 16.7(L) 20.0 - 26.0 mmol/L [facility] Sodium, POC 123(L) 135 - 145 mmol/L [facility] POC Potassium 4.0 3.5 - 5.0 mmol/L [facility] Ionized Calcium, POC 1.12(L) 1.15 - 1.33 mmol/L [facility] POC Hematocrit 27.0(L) 34.0 - 45.0 % [facility] POC Calc Hgb 9.2(L) 11.2 - 15.7 g/dL [facility] Comment:The calculation of h emoglobin from hematocrit assumes a normal MCHC. POC Bgas Loc CC Lab [facility] Blood 05/12/2023 8:10 AM EDT 05/13/2023 12:00 PM EDT Alirio Hudson MD CHEMISTRY ORDERABLE S [facility] [place] [address] * (ABNORMAL) Lactate, whole blood, send to lab ([facility]) (05/12/2023 7:00 AM EDT) Lactate WB 2.4(H) 0.5 - 2.2 mmol/L [facility] Blood 05/12/2023 7:00 AM EDT 05/12/2023 7:09 AM EDT Narrative Resulting Agency Comment Spec In Lab Radha Hollins MD CHEMISTRY ORDERABL ES [facility] [place] [address] * (ABNORMAL) Comprehensive metabolic panel (non-fasting) (05/12/2023 6:00 AM EDT) Glucose 167 65 - 199 mg/dL [facility] Comment:Diabetes: >=200 mg/d L plus symptoms Blood Urea Nitrogen 67(H) 8 - 18 mg/dL [facility] Creatinine 2.01(H) 0.70 - 1.20 mg/dL [facility] Sodium 131(L) 135 - 145 mmol/L [facility] Potassium 4.3 3.5 - 5.0 mmol/L [facility] Comment: Please note: ??Patients with WBC >100,000 may have falsely elevated Potassium levels. ??For accurate Potassium quantification in these patients send serum separator tube (gold top) for subsequent determinations. ??Contact the Clinical Chemistry Laboratory if there are any questions. Chloride 97(L) 98 - 107 mmol/L [facility] Carbon Dioxide 14(L) 22 - 31 mmol/L [facility] Anion Gap 20(H) 5 - 15 mmol/L [facility] Calcium 8.6 8.5 - 10.5 mg/dL [facility] Protein, Total 6.3 6.1 - 8.0 g/dL [facility] Albumin 3.5 3.2 - 5.2 g/dL [facility] Aspartate Aminotransferase 1,435(H) 0 - 30 unit/L [facility] Alanine Aminotransferase 1,174(H) 0 - 30 unit/L [facility] Alkaline Phosphatase 100 35 - 105 unit/L [facility] Bilirubin, Total 0.9 0.2 - 1.3 mg/dL [facility] Est Glomerular Filtration Rate 27(L) >=60 mL/min/1. 73 m?? [facility] Comment: This patient's estimated GFR [...] MD CHEMISTRY ORDERABL ES Performing Organization Address City/[facility] Co de Phone Number [facility] [place] [address] * (ABNORMAL) Coox2 (05/12/2023 5:08 AM EDT) pO2, Coox 24 mmHg [facility] Hgb Blood Gas 10.4(L) 11.7 - 15.5 g/dL [facility] Oxyhemoglobin, Coox 30.7 % [facility] Carboxyhemoglo bin, Coox 0.3 % [facility] Comment: Nonsmokers: 0.5-1.5% COHB Smokers: Variable, but usually less than 10% Toxic: 20-30% COHB Lethal: Greater than 60% COHB Methemoglobin, Coox 0.8 <=1.5 % [facility] Source Coox Mixed Venous [facility] Blood 05/12/2023 5:08 AM EDT 05/12/2023 5:08 AM EDT Radha Hollins MD POINT OF CARE TEST ORDERABLES Performing Organization Address City/[facility] Co de Phone Number [facility] [place] [address] * (ABNORMAL) Coox2 (05/12/2023 3:21 AM EDT) pO2, Coox 25 mmHg [facility] Hgb Blood Gas 10.8(L) 11.7 - 15.5 g/dL [facility] Oxyhemoglobin, Coox 32.7 % [facility] Carboxyhemoglo bin, Coox 0.3 % [facility] Comment: Nonsmokers: 0.5-1.5% COHB Smokers: Variable, but usually less than 10% Toxic: 20-30% COHB Lethal: Greater than 60% COHB Methemoglobin, Coox 0.7 <=1.5 % [facility] Source Coox Mixed Venous [facility] Blood 05/12/2023 3:21 AM EDT 05/12/2023 3:21 AM EDT Radha Hollins MD POINT OF CARE TEST ORDERABLES [facility] [place] [address] * (ABNORMAL) BLOOD GAS 2 ARTERIAL (05/12/2023 3:18 AM EDT) pH, Arterial 7.34(L) 7.35 - 7.45 [facility] PCO2, Arterial 30(L) 35 - 45 mmHg [facility] PO2, Arterial 72(L) 85 - 104 mmHg [facility] Bicarbonate, Arterial 16.0(L) 20.0 - 26.0 mmol/L [facility] Base Excess, Arterial -9.8(L) -3.0 - 3.0 mmol/L [facility] Hgb Blood Gas 11.0(L) 11.7 - 15.5 g/dL [facility] Oxyhemoglobin, Arterial 89.8(L) 94.0 - 97.0 % [facility] Carboxyhemoglob in, Arterial 0.3 % [facility] Comment: Nonsmokers: 0.5-1.5% COHB Smokers: Variable, but usually less than 10% Toxic: 20-30% COHB Lethal: Greater than 60% COHB Methemoglobin, Arterial 0.7 <=1.5 % [facility] Na Whole Blood 131(L) 135 - 145 mmol/L [facility] K Whole Blood 4.2 3.5 - 5.0 mmol/L [facility] Comment: Please note: Patients with WBC >100,000 may have falsely elevated Potassium levels. Contact the Clinical Chemistry Laboratory if there are any questions. ICa Whole Blood 1.12(L) 1.15 - 1.33 mmol/L [facility] Comment: Note: ??Total bilirubin higher than 20 mg/dL may lead to falsely low ionized calcium. CL Whole Blood 100 98 - 107 mmol/L [facility] Gluc Whole Bld 160 65 - 199 mg/dL [facility] Comment:Diabetes: >=200 mg/d L plus symptoms. Lactate WB 2.7(H) 0.5 - 2.2 mmol/L [facility] Flow Art 5.0 LPM [facility] Blood 05/12/2023 3:18 AM EDT 05/12/2023 3:18 AM EDT Radha Hollins MD POINT OF CARE TEST ORDERABLES Performing Organization Address [facility] Co de Phone Number [facility] [place] [address] * (ABNORMAL) Coox2 (05/12/2023 1:14 AM EDT) pO2, Coox 28 mmHg [facility] Hgb Blood Gas 10.9(L) 11.7 - 15.5 g/dL [facility] Oxyhemoglobin, Coox 37.3 % [facility] Carboxyhemoglo bin, Coox 0.3 % [facility] Comment: Nonsmokers: 0.5-1.5% COHB Smokers: Variable, but usually less than 10% Toxic: 20-30% COHB Lethal: Greater than 60% COHB Methemoglobin, Coox 0.5 <=1.5 % [facility] Source Coox Mixed Venous [facility] Blood 05/12/2023 1:14 AM EDT 05/12/2023 1:14 AM EDT Radha Hollins MD POINT OF CARE TEST ORDERABLES Performing Organization Address [facility] Co de Phone Number [facility] [place] [address] * (ABNORMAL) BLOOD GAS 2 ARTERIAL (05/12/2023 1:06 AM EDT) pH, Arterial 7.34(L) 7.35 - 7.45 [facility] PCO2, Arterial 30(L) 35 - 45 mmHg [facility] PO2, Arterial 81(L) 85 - 104 mmHg [facility] Bicarbonate, Arterial 15.7(L) 20.0 - 26.0 mmol/L [facility] Base Excess, Arterial -10.1(L) -3.0 - 3.0 mmol/L [facility] Hgb Blood Gas 11.0(L) 11.7 - 15.5 g/dL [facility] Oxyhemoglobin, Arterial 92.3(L) 94.0 - 97.0 % [facility] Carboxyhemoglob in, Arterial 0.2 % [facility] Comment: Nonsmokers: 0.5-1.5% COHB Smokers: Variable, but usually less than 10% Toxic: 20-30% COHB Lethal: Greater than 60% COHB Methemoglobin, Arterial 0.6 <=1.5 % [facility] Na Whole Blood 131(L) 135 - 145 mmol/L [facility] K Whole Blood 4.2 3.5 - 5.0 mmol/L [facility] Comment: Please note: Patients with WBC >100,000 may have falsely elevated Potassium levels. Contact the Clinical Chemistry Laboratory if there are any questions. ICa Whole Blood 1.13(L) 1.15 - 1.33 mmol/L [facility] Comment: Note: ??Total bilirubin higher than 20 mg/dL may lead to falsely low ionized calcium. CL Whole Blood 99 98 - 107 mmol/L [facility] Gluc Whole Bld 132 65 - 199 mg/dL [facility] Comment:Diabetes: >=200 mg/d L plus symptoms. Lactate WB 2.7(H) 0.5 - 2.2 mmol/L [facility] Flow Art 5.0 LPM [facility] Blood 05/12/2023 1:06 AM EDT 05/12/2023 1:06 AM EDT Radha Hollins MD POINT [place] [address] * (ABNORMAL) Differential, Automated (05/12/2023 1:05 AM EDT) Neutrophil % 83.3 % [facility] Neutrophil Absolute 7.49(H) 1.70 - 6.10 x10(3)/mc L [facility] Lymph % 7.1 % [facility] Lymphocytes Abs 0.6(L) 0.9 - 3.2 x10(3)/mc L [facility] Monocyte % 8.9 % [facility] Monocyte Abs 0.8 0.3 - 0.9 x10(3)/mc L [facility] Eos % 0.0 % [facility] Eosinophils Abs 0.0 0.0 - 0.4 x10(3)/mc L [facility] Basophil % 0.1 % [facility] Baso Absolute 0.0 0.0 - 0.1 x10(3)/mc L [facility] Immature Gran % 0.60 % [facility] Comment: Immature granulocytes(IG's)percentage and absolute count will include metamyelocytes, myelocytes, and promyelocytes. Blood smears from CBCs yielding IG's will be scanned manually for concordance. If this scan disagrees with the automated IG or if promyelocytes are noted, a manual differential will be performed. Immature Gran Absolute 0.05(H) 0.00 - 0.04 x10(3)/mc L [facility] Blood 05/12/2023 1:05 AM EDT 05/12/2023 1:15 AM EDT Narrative Resulting Agency Comment Spec In Lab Gianni Fletcher MD [place] [address] * (ABNORMAL) Hemogram (05/12/2023 1:05 AM EDT) White Blood Cell 9.0 4.0 - 9.5 x10(3)/mc L [facility] Red Blood Cell 3.01(L) 4.00 - 5.21 x10(6)/mc L [facility] Hemoglobin 9.8(L) 11.7 - 15.5 g/dL [facility] Hematocrit 28.7(L) 35.7 - 45.8 % [facility] Mean Cell Volume 95.3(H) 82.6 - 94.4 fL [facility] Mean Cell Hemoglobin 32.6(H) 27.1 - 32.0 pg [facility] Mean Cell Hemoglobin Concentration 34.1 31.7 - 35.0 g/dL [facility] Platelet 186 145 - 357 x10(3)/mc L [facility] RDW Standard Deviation 43.7 37.0 - 46.0 fL [facility] RDW coefficient of variation 12.7 11.5 - 14.1 % [facility] Mean Platelet Volume 10.3 7.6 - 12.9 fL [facility] NRBC% auto 0.0 % [facility] NRBC Absolute 0.000 0.000 - 0.000 x10(3)/ L [facility] Blood 05/12/2023 1:05 AM EDT 05/12/2023 1:15 AM EDT Narrative Resulting Agency Comment Spec In Lab Gianni Fletcher MD HEMATOLOGY ORDERABLE S [facility] [place] [address] * (ABNORMAL) Comprehensive metabolic panel (non-fasting) (05/12/2023 1:05 AM EDT) Glucose 141 65 - 199 mg/dL [facility] Comment:Diabetes: >=200 mg/d L plus symptoms Blood Urea Nitrogen 63(H) 8 - 18 mg/dL [facility] Creatinine 1.86(H) 0.70 - 1.20 mg/dL [facility] Sodium 131(L) 135 - 145 mmol/L [facility] Potassium 4.4 3.5 - 5.0 mmol/L [facility] Comment: Please note: ??Patients with WBC >100,000 may have falsely elevated Potassium levels. ??For accurate Potassium quantification in these patients send serum separator tube (gold top) for subsequent determinations. ??Contact the Clinical Chemistry Laboratory if there are any questions. Chloride 96(L) 98 - 107 mmol/L [facility] Carbon Dioxide 14(L) 22 - 31 mmol/L [facility] Anion Gap 21(H) 5 - 15 mmol/L [facility] Calcium 9.0 8.5 - 10.5 mg/dL [facility] Protein, Total 6.6 6.1 - 8.0 g/dL [facility] Albumin 3.9 3.2 - 5.2 g/dL [facility] Aspartate Aminotransferase 1,227(H) 0 - 30 unit/L [facility] Alanine Aminotransferase 1,097(H) 0 - 30 unit/L [facility] Alkaline Phosphatase 108(H) 35 - 105 unit/L [facility] Bilirubin, Total 1.0 0.2 - 1.3 mg/dL [facility] Est Glomerular Filtration Rate 29(L) >=60 mL/min/1. 73 m?? [facility] Comment: This patient's estimated GFR [...] Lab Radha Hollins MD CHEMISTRY ORDERABL ES [facility] [place] [address] * XR Chest One View (05/12/2023 1:00 [...] have questions please contact the health career consultant that requested your imaging first. ? Electronically signed by: Will Rowe MD, [facility] ([phone]), at 05/12/2023 3:16 AM Narrative 05/12/2023 3:16 [...] who have questions please contactthe health career consultant that requested your imaging first. Radha Hollins MD IMG DX ORDERABLES * (ABNORMAL) Coox2 (05/12/2023 12:30 AM EDT) pO2, Coox 22 mmHg [facility] Hgb Blood Gas 10.9(L) 11.7 - 15.5 g/dL [facility] Oxyhemoglobin, Coox 25.1 % [facility] Carboxyhemoglo bin, Coox 0.3 % [facility] Comment: Nonsmokers: 0.5-1.5% COHB Smokers: Variable, but usually less than 10% Toxic: 20-30% COHB Lethal: Greater than 60% COHB Methemoglobin, Coox 1.4 <=1.5 % [facility] Source Coox Mixed Venous [facility] Blood 05/12/2023 12:3 0 AM EDT 05/12/2023 12:30 AM EDT Radha Hollins MD POINT [place] [address] * XR Chest One View (05/11/2023 11:45 [...] have questions please contact the health career consultant that requested your imaging first. ? Electronically signed by: Will Rowe MD, [facility] ([phone]), at 05/11/2023 11:57 PM Narrative 05/11/2023 11:57 PM EDT EXAMINATION: XR [...] who have questions please contactthe health career consultant that requested your imaging first. Electronically signed by: Will Rowe MD, [facility]([phone]), at 05/11/2023 11:57 PM Radha Hollins MD IMG DX ORDERABLES * (ABNORMAL) Lactate, whole blood, send to lab ([facility]) (05/11/2023 7:40 PM EDT) Pathologist [facility] Lactate WB 4.8(Critic al) 0.5 - 2.2 mmol/L [facility] Comment:Called by: [facility], Read back by: Magdalena Baires, Date/Time:05/11/23 19:54. Blood 05/11/2023 7:40 PM EDT 05/11/2023 7:49 PM EDT Narrative Resulting Agency Comment Spec In Lab Radha Hollins MD CHEMISTRY ORDERABL ES [facility] [place] [address] * Urine culture (05/11/2023 7:22 PM EDT) Pathologist [facility] Urine Culture 50,000-99,000 cfu/ml Normal mucosal herman Susceptibilit y testing not routinely performed for Coagulase Negative Staphylococcu s species and other Gram Positive organisms from urine. [facility] Clean Catch Urine 05/11/2023 7:22 PM EDT 05/11/2023 8:50 PM EDT Narrative Resulting Agency Comment Spec In Lab Brody Kaplan APRN MICROBIOLOGY - GENE RAL ORDERABLES Performing Organization Address [facility] Co de Phone Number [facility] [place] [address] * (ABNORMAL) Urinalysis Microscopic Exam (05/11/2023 7:22 PM EDT) RBC, Urine 2 0 - 4 /HPF [facility] WBC, Urine >100(H) 0 - 5 /HPF [facility] Bacteria, Urine Occasional (A) None /HPF [facility] Squamous Epithelial Cells Raw Data, Urine 5(H) <=4 /HPF [facility] Hyaline Casts, Urine 3(H) 0 - 2 /LPF [facility] Clean Catch Urine 05/11/2023 7:22 PM EDT 05/11/2023 7:31 PM EDT Narrative Resulting Agency Comment Spec In Lab Brody Kaplan RESOURCING ADVISOR URINE ORDERABLES Performing Organization Address [facility] de Phone Number [facility] [place] [address] * (ABNORMAL) Urinalysis with reflex Culture (05/11/2023 7:22 PM EDT) Glucose, Urine Dipstick Negative Negative mg/dL [facility] Protein, Urine Dipstick Trace(A) Negative mg/dL [facility] Bilirubin, Urine Dipstick Negative Negative mg/dL [facility] Comment: Clinical correlation required for positive Urine Bilirubin results as false positive may occur with some drugs and drug related products. If a false positive is suspected a serum total bilirubin should be considered if clinically indicated. Urobilinogen, Urine Dipstick Normal Normal mg/dL [facility] pH, Urn (dipstick) 5.0 5.0 - 8.0 [facility] Blood, Urine Dipstick Trace(A) Negative mg/dL [facility] [facility] Ketone, Urine Dipstick Negative Negative mg/dL [facility] Nitrite, Urine Dipstick Negative Negative [facility] Leukocytes, Urine Dipstick Moderate(A) Negative mcL [facility] Appearance, Urine Dipstick Cloudy(A) Clear [facility] Specific [place] Urine Automated >=1.030(A) 1.005 - 1.030 [facility] Color, Urine Dipstick Yellow Yellow [facility] Reflex to Culture Yes [facility] Clean Catch Urine 05/11/2023 7:22 PM EDT 05/11/2023 7:31 PM EDT Narrative Resulting Agency Comment Spec In Lab Brody Kaplan APRN URINE ORDERABLES Performing Organization Address [facility]/ZIP Co de Phone Number [facility] [place] [address] * (ABNORMAL) pro-Brain Natriuretic Peptide (05/11/2023 7:11 PM EDT) NT-proBNP >35,000(H) <=124 pg/mL [facility] Blood 05/11/2023 7:11 PM EDT 05/11/2023 7:26 PM EDT Narrative Resulting Agency Comment Spec In Lab Radha Hollins MD CHEMISTRY ORDERABL ES Performing Organization Address [facility] Co de Phone Number [facility] [place] [address] * (ABNORMAL) Lactate, whole blood, send to lab ([facility]) (05/11/2023 2:47 PM EDT) Lactate WB 2.9(H) 0.5 - 2.2 mmol/L [facility] Blood 05/11/2023 2:47 PM EDT 05/11/2023 2:53 PM EDT Narrative Resulting Agency Comment Spec In Lab Juan Luis Gonzalez MD CHEMISTRY ORDERABLES Performing Organization Address [facility]/ZIP Co de Phone Number [facility] [place] [address] * (ABNORMAL) CT Angiogram Abdomen & Pelvis [...] have questions please contact the health career consultant that requested your imaging first. ? Electronically signed by: Eileen Gomes MD, [facility] ([phone]), at 05/11/2023 2:42 PM Narrative 05/11/2023 2:42 [...] have questions please contact the health career consultant that requested your imaging first. ? Electronically signed by: Cullen Narayanan MD, [facility] ([phone]), at 05/11/2023 4:37 PM Narrative 05/11/2023 4:37 [...] 610 mm2 Circumference: 88 mm Calcification: Mild Rldtjfl-lp-wbrvcbsi height: Left: 6.2 mm Right: 5.8 mm THORACIC AORTA Description: Normal course and caliber. ??Mild diffuse atherosclerotic changes. No acute aortopathy noted. Administrative Resources Associate dimensions: Aortic root: 27.6 mm Max ascending [...] 610 mm2 Circumference: 88 mm Calcification: Mild Bhsnpao-zk-nzpuatap height: Left: 6.2 mm Right: 5.8 mm THORACIC AORTA Description: Normal course and caliber. Mild diffuse atheroscleroticchanges. No acute aortopathy noted. Administrative Resources Associate dimensions: Aortic root: 27.6 mm Max ascending [...] who have questions please contactthe health career consultant that requested your imaging first. Electronically signed by: Cullen Narayanan MD, [facility]([phone]), at 05/11/2023 4:37 PM Antelmo Sharma MD [facility] [place] ORDERABLES * (ABNORMAL) Lactate, whole blood, send to lab ([facility]) (05/11/2023 9:29 AM EDT) Lactate WB 3.1(H) 0.5 - 2.2 mmol/L [facility] Blood 05/11/2023 9:29 AM EDT 05/11/2023 9:38 AM EDT Narrative Resulting Agency Comment Spec In Lab Juan Luis Gonzalez MD CHEMISTRY ORDERABLES Performing Organization Address City/[facility]/ZIP Co de Phone Number [facility] [place] [address] * (ABNORMAL) Differential, Automated (05/11/2023 4:42 AM EDT) Neutrophil % 78.1 % [facility] Neutrophil Absolute 5.46 1.70 - 6.10 x10(3)/mc L [facility] Lymph % 10.6 % [facility] Lymphocytes Abs 0.7(L) 0.9 - 3.2 x10(3)/mc L [facility] Monocyte % 9.6 % [facility] Monocyte Abs 0.7 0.3 - 0.9 x10(3)/mc L [facility] Eos % 0.0 % [facility] Eosinophils Abs 0.0 0.0 - 0.4 x10(3)/mc L [facility] Basophil % 0.4 % [facility] Baso Absolute 0.0 0.0 - 0.1 x10(3)/mc L [facility] Immature Gran % 1.30 % [facility] Comment: Immature granulocytes(IG's)percentage and absolute count will include metamyelocytes, myelocytes, and promyelocytes. Blood smears from CBCs yielding IG's will be scanned manually for concordance. If this scan disagrees with the automated IG or if promyelocytes are noted, a manual differential will be performed. Immature Gran Absolute 0.09(H) 0.00 - 0.04 x10(3)/mc L [facility] Blood 05/11/2023 4:42 AM EDT 05/11/2023 4:49 AM EDT Narrative Resulting Agency Comment Spec In Lab Klaudia Reid MD HEMATOLOGY OR DERABLES [facility] [place] [address] * (ABNORMAL) Hemogram (05/11/2023 4:42 AM EDT) White Blood Cell 7.0 4.0 - 9.5 x10(3)/mc L [facility] Red Blood Cell 3.44(L) 4.00 - 5.21 x10(6)/mc L [facility] Hemoglobin 11.1(L) 11.7 - 15.5 g/dL [facility] Hematocrit 32.7(L) 35.7 - 45.8 % [facility] Mean Cell Volume 95.1(H) 82.6 - 94.4 fL [facility] Mean Cell Hemoglobin 32.3(H) 27.1 - 32.0 pg [facility] Mean Cell Hemoglobin Concentration 33.9 31.7 - 35.0 g/dL [facility] Platelet 165 145 - 357 x10(3)/mc L [facility] RDW Standard Deviation 43.1 37.0 - 46.0 fL [facility] RDW coefficient of variation 12.7 11.5 - 14.1 % [facility] Mean Platelet Volume 10.1 7.6 - 12.9 fL [facility] NRBC% auto 0.0 % [facility] NRBC Absolute 0.000 0.000 - 0.000 x10(3)/ L [facility] Blood 05/11/2023 4:42 AM EDT 05/11/2023 4:49 AM EDT Narrative Resulting Agency Comment Spec In Lab Klaudia Reid MD HEMATOLOGY OR DERABLES [facility] [place] [address] * Heparin (unfractionated) Level (05/11/2023 4:42 AM EDT) UF Heparin 0.46 IU/mL [facility] Comment: Heparin (anti-Xa) [...] Lab Radha Hollins MD HEMATOLOGY ORDERAB LES [facility] [place] [address] * (ABNORMAL) Comprehensive metabolic panel (non-fasting) (05/11/2023 4:42 AM EDT) Glucose 143 65 - 199 mg/dL [facility] Comment:Diabetes: >=200 mg/d L plus symptoms Blood Urea Nitrogen 42(H) 8 - 18 mg/dL [facility] Creatinine 1.24(H) 0.70 - 1.20 mg/dL [facility] Sodium 134(L) 135 - 145 mmol/L [facility] Potassium 4.6 3.5 - 5.0 mmol/L [facility] Comment: Please note: ??Patients with WBC >100,000 may have falsely elevated Potassium levels. ??For accurate Potassium quantification in these patients send serum separator tube (gold top) for subsequent determinations. ??Contact the Clinical Chemistry Laboratory if there are any questions. Chloride 99 98 - 107 mmol/L [facility] Carbon Dioxide 14(L) 22 - 31 mmol/L [facility] Anion Gap 21(H) 5 - 15 mmol/L [facility] Calcium 9.6 8.5 - 10.5 mg/dL [facility] Protein, Total 7.2 6.1 - 8.0 g/dL [facility] Albumin 3.7 3.2 - 5.2 g/dL [facility] Aspartate Aminotransferase 144(H) 0 - 30 unit/L [facility] Comment:result rechecked-ssc Alanine Aminotransferase 130(H) 0 - 30 unit/L [facility] Comment:result rechecked-ssc Alkaline Phosphatase 72 35 - 105 unit/L [facility] Bilirubin, Total 0.8 0.2 - 1.3 mg/dL [facility] Est Glomerular Filtration Rate 48(L) >=60 mL/min/1. 73 m?? [facility] Comment: This patient's estimated GFR [...] Lab Radha Hollins MD CHEMISTRY ORDERABL ES [facility] [place] [address] * EKG 12 Lead (05/10/2023 1:16 PM EDT) Ventricular rate 118 BPM MUSE SYSTEM Atrial Rate 118 BPM MUSE SYSTEM P-R Interval 152 ms MUSE SYSTEM QRS Duration 104 ms MUSE SYSTEM Q-T Interval 316 ms MUSE SYSTEM QTC Calculated (Bezet) 442 ms MUSE SYSTEM Calculated P [place] 29 degrees MUSE SYSTEM Calculated R [place] 18 degrees MUSE SYSTEM Calculated T [place] -173 degrees MUSE SYSTEM INTERPRETATION Sinus tachycardia Minimal voltage criteria for LVH, may be normal variant ( [place] product ) Septal infarct , age undetermined ST & T wave abnormality, consider lateral ischemia Abnormal ECG When compared with ECG of 10-MAY-2023 07:59, Fusion complexes are no longer Present Premature ventricular complexes are no longer Present ST no longer depressed in Anterior leads Confirmed by MD Villareal Danette ([id number]) on 05/10/2023 8:47:46 PM MUSE SYSTEM 05/10/2023 1:16 PM EDT 05/10/2023 8:47 PM EDT Juan Luis Gonzalez MD ECG ORDERABLES MUSE SYSTEM * Lactate, whole blood, send to lab ([facility]) (05/10/2023 11:52 AM EDT) Lactate WB 1.8 0.5 - 2.2 mmol/L [facility] Blood 05/10/2023 11:5 2 AM EDT 05/10/2023 12:13 PM EDT Narrative Resulting Agency Comment Spec In Lab Juan Luis Gonzalez MD CHEMISTRY ORDERABLES Performing Organization Address City/[facility] Co de Phone Number [facility] [place] [address] * XR Chest One View (05/10/2023 11:16 [...] have questions please contact the health career consultant that requested your imaging first. ? Narrative [...] who have questions please contactthe health career consultant that requested your imaging first. Electronically signed by: ALIX RUVALCABA MD, [facility]([phone]), at 05/10/2023 1:25 PM Juan Luis Gonzalez MD IMG DX ORDERABLES * EKG 12 Lead (05/10/2023 7:59 AM EDT) Ventricular rate 115 BPM MUSE SYSTEM Atrial Rate 115 BPM MUSE SYSTEM P-R Interval 142 ms MUSE SYSTEM QRS Duration 102 ms MUSE SYSTEM Q-T Interval 322 ms MUSE SYSTEM QTC Calculated (Bezet) 445 ms MUSE SYSTEM Calculated P [place] 36 degrees MUSE SYSTEM Calculated R [place] 28 degrees MUSE SYSTEM Calculated T [place] -119 degrees MUSE SYSTEM INTERPRETATION Sinus tachycardia with frequent Premature ventricular complexes and Fusion complexes ST & T wave abnormality, consider lateral ischemia Abnormal ECG When compared with ECG of 08-MAY-2023 15:51, No significant change was found I personally reviewed the tracing and edited the fellows interpretation Confirmed by fellow MD Anitha, Carissa ([id number]) on 05/11/2023 6:19:54 AM Confirmed by MD Tram, Chel ([id number]) on 05/11/2023 3:18:56 PM MUSE SYSTEM 05/10/2023 7:59 AM EDT 05/11/2023 3:18 PM EDT Radha Hollins MD ECG ORDERABLES MUSE SYSTEM * (ABNORMAL) Differential, Automated (05/10/2023 2:28 AM EDT) Neutrophil % 77.1 % [facility] Neutrophil Absolute 4.01 1.70 - 6.10 x10(3)/mc L [facility] Lymph % 14.0 % [facility] Lymphocytes Abs 0.7(L) 0.9 - 3.2 x10(3)/mc L [facility] Monocyte % 7.7 % [facility] Monocyte Abs 0.4 0.3 - 0.9 x10(3)/mc L [facility] Eos % 0.4 % [facility] Eosinophils Abs 0.0 0.0 - 0.4 x10(3)/mc L [facility] Basophil % 0.4 % [facility] Baso Absolute 0.0 0.0 - 0.1 x10(3)/mc L [facility] Immature Gran % 0.40 % [facility] Comment: Immature granulocytes(IG's)percentage and absolute count will include metamyelocytes, myelocytes, and promyelocytes. Blood smears from CBCs yielding IG's will be scanned manually for concordance. If this scan disagrees with the automated IG or if promyelocytes are noted, a manual differential will be performed. Immature Gran Absolute 0.02 0.00 - 0.04 x10(3)/mc L [facility] Blood 05/10/2023 2:28 AM EDT 05/10/2023 2:57 AM EDT Narrative Resulting Agency Comment Spec In Lab Klaudia Reid MD HEMATOLOGY OR DERABLES Performing Organization Address City/[facility]/ZIP Co de Phone Number [facility] [place] [address] * (ABNORMAL) Hemogram (05/10/2023 2:28 AM EDT) White Blood Cell 5.2 4.0 - 9.5 x10(3)/mc L [facility] Red Blood Cell 3.11(L) 4.00 - 5.21 x10(6)/mc L [facility] Hemoglobin 10.2(L) 11.7 - 15.5 g/dL [facility] Hematocrit 30.2(L) 35.7 - 45.8 % [facility] Mean Cell Volume 97.1(H) 82.6 - 94.4 fL [facility] Mean Cell Hemoglobin 32.8(H) 27.1 - 32.0 pg [facility] Mean Cell Hemoglobin Concentration 33.8 31.7 - 35.0 g/dL [facility] Platelet 151 145 - 357 x10(3)/mc L [facility] RDW Standard Deviation 44.9 37.0 - 46.0 fL [facility] RDW coefficient of variation 12.8 11.5 - 14.1 % [facility] Mean Platelet Volume 9.8 7.6 - 12.9 fL [facility] NRBC% auto 0.0 % [facility] NRBC Absolute 0.000 0.000 - 0.000 x10(3)/mc L [facility] Blood 05/10/2023 2:28 AM EDT 05/10/2023 2:57 AM EDT Narrative Resulting Agency Comment Spec In Lab Klaudia Reid MD HEMATOLOGY OR DERABLES Performing Organization Address City/[facility] Co de Phone Number [facility] [place] [address] * (ABNORMAL) Comprehensive metabolic panel (non-fasting) (05/10/2023 2:28 AM EDT) Glucose 100 65 - 199 mg/dL [facility] Comment:Diabetes: >=200 mg/d L plus symptoms Blood Urea Nitrogen 30(H) 8 - 18 mg/dL [facility] Creatinine 0.90 0.70 - 1.20 mg/dL [facility] Sodium 134(L) 135 - 145 mmol/L [facility] Potassium 4.1 3.5 - 5.0 mmol/L [facility] Comment: Please note: ??Patients with WBC >100,000 may have falsely elevated Potassium levels. ??For accurate Potassium quantification in these patients send serum separator tube (gold top) for subsequent determinations. ??Contact the Clinical Chemistry Laboratory if there are any questions. Chloride 102 98 - 107 mmol/L [facility] Carbon Dioxide 20(L) 22 - 31 mmol/L [facility] Anion Gap 12 5 - 15 mmol/L [facility] Calcium 9.3 8.5 - 10.5 mg/dL [facility] Protein, Total 6.4 6.1 - 8.0 g/dL [facility] Albumin 3.7 3.2 - 5.2 g/dL [facility] Aspartate Aminotransferase 24 0 - 30 unit/L [facility] Alanine Aminotransferase 14 0 - 30 unit/L [facility] Alkaline Phosphatase 70 35 - 105 unit/L [facility] Bilirubin, Total 0.5 0.2 - 1.3 mg/dL [facility] Est Glomerular Filtration Rate 70 >=60 mL/min/1. 73 m?? [facility] Comment: This patient's estimated GFR [...] MD CHEMISTRY ORDERABL ES Performing Organization Address [facility] [place] [address] * Heparin (unfractionated) Level (05/10/2023 2:28 AM EDT) Pathologist [facility] UF Heparin 0.37 IU/mL [facility] Comment: Heparin (anti-Xa) levels should [...] MD HEMATOLOGY ORDERAB LES Performing Organization Address [facility] [place] [address] * (ABNORMAL) Differential, Automated (05/09/2023 4:00 AM EDT) Neutrophil % 81.7 % [facility] Neutrophil Absolute 5.26 1.70 - 6.10 x10(3)/mc L [facility] Lymph % 10.7 % [facility] Lymphocytes Abs 0.7(L) 0.9 - 3.2 x10(3)/mc L [facility] Monocyte % 6.5 % [facility] Monocyte Abs 0.4 0.3 - 0.9 x10(3)/mc L [facility] Eos % 0.5 % [facility] Eosinophils Abs 0.0 0.0 - 0.4 x10(3)/mc L [facility] Basophil % 0.3 % [facility] Baso Absolute 0.0 0.0 - 0.1 x10(3)/mc L [facility] Immature Gran % 0.30 % [facility] Comment: Immature granulocytes(IG's)percentage and absolute count will include metamyelocytes, myelocytes, and promyelocytes. Blood smears from CBCs yielding IG's will be scanned manually for concordance. If this scan disagrees with the automated IG or if promyelocytes are noted, a manual differential will be performed. Immature Gran Absolute 0.02 0.00 - 0.04 x10(3)/ L [facility] Blood 05/09/2023 4:00 AM EDT 05/09/2023 4:19 AM EDT Narrative Resulting Agency Comment Spec In Lab Klaudia Reid MD HEMATOLOGY OR DERABLES Performing Organization Address City/State/[facility] Co de Phone Number [facility] [place] [address] * (ABNORMAL) Hemogram (05/09/2023 4:00 AM EDT) White Blood Cell 6.4 4.0 - 9.5 x10(3)/ L [facility] Red Blood Cell 3.15(L) 4.00 - 5.21 x10(6)/mc L [facility] Hemoglobin 10.2(L) 11.7 - 15.5 g/dL [facility] Hematocrit 30.3(L) 35.7 - 45.8 % [facility] Mean Cell Volume 96.2(H) 82.6 - 94.4 fL [facility] Mean Cell Hemoglobin 32.4(H) 27.1 - 32.0 pg [facility] Mean Cell Hemoglobin Concentration 33.7 31.7 - 35.0 g/dL [facility] Platelet 151 145 - 357 x10(3)/ L [facility] RDW Standard Deviation 44.7 37.0 - 46.0 fL [facility] RDW coefficient of variation 12.8 11.5 - 14.1 % [facility] Mean Platelet Volume 9.4 7.6 - 12.9 fL [facility] NRBC% auto 0.0 % [facility] NRBC Absolute 0.000 0.000 - 0.000 x10(3)/mc L [facility] Blood 05/09/2023 4:00 AM EDT 05/09/2023 4:19 AM EDT Narrative Resulting Agency Comment Spec In Lab Klaudia Reid MD HEMATOLOGY OR DERABLES Performing Organization Address [facility] Co de Phone Number [facility] [place] [address] * Heparin (unfractionated) Level (05/09/2023 4:00 AM EDT) UF Heparin 0.47 IU/mL [facility] Comment: Heparin (anti-Xa) levels should [...] MD HEMATOLOGY ORDERAB LES Performing Organization Address [facility] Co de Phone Number [facility] [place] [address] * (ABNORMAL) Comprehensive metabolic panel (non-fasting) (05/09/2023 4:00 AM EDT) Glucose 108 65 - 199 mg/dL [facility] Comment:Diabetes: >=200 mg/d L plus symptoms Blood Urea Nitrogen 31(H) 8 - 18 mg/dL [facility] Creatinine 1.03 0.70 - 1.20 mg/dL [facility] Sodium 137 135 - 145 mmol/L [facility] Potassium 4.4 3.5 - 5.0 mmol/L [facility] Comment: Please note: ??Patients with WBC >100,000 may have falsely elevated Potassium levels. ??For accurate Potassium quantification in these patients send serum separator tube (gold top) for subsequent determinations. ??Contact the Clinical Chemistry Laboratory if there are any questions. Chloride 102 98 - 107 mmol/L [facility] Carbon Dioxide 20(L) 22 - 31 mmol/L [facility] Anion Gap 15 5 - 15 mmol/L [facility] Calcium 9.3 8.5 - 10.5 mg/dL [facility] Protein, Total 6.6 6.1 - 8.0 g/dL [facility] Albumin 3.8 3.2 - 5.2 g/dL [facility] Aspartate Aminotransferase 32(H) 0 - 30 unit/L [facility] Alanine Aminotransferase 18 0 - 30 unit/L [facility] Alkaline Phosphatase 78 35 - 105 unit/L [facility] Bilirubin, Total 0.5 0.2 - 1.3 mg/dL [facility] Est Glomerular Filtration Rate 60 >=60 mL/min/1. 73 m?? [facility] Comment: This patient's estimated GFR [...] Lab Radha Hollins MD CHEMISTRY ORDERABL ES [facility] [place] [address] * (ABNORMAL) pro-Brain Natriuretic Peptide (05/08/2023 4:00 PM EDT) NT-proBNP 25,503(H) <=124 pg/mL [facility] Blood Venous Draw / Unknown 05/08/2023 4:00 PM EDT 05/08/2023 4:25 PM EDT Narrative Resulting Agency Comment Spec In Lab Juan Luis Gonzalez MD CHEMISTRY ORDERABLES [facility] [place] [address] * Magnesium (05/08/2023 4:00 PM EDT) Pathologist [facility] Magnesium 0.82 0.69 - 1.07 mmol/L [facility] Blood 05/08/2023 4:00 PM EDT 05/08/2023 4:06 PM EDT Narrative Resulting Agency Comment Spec In Lab Enrique Chua MD CHEMISTRY ORDERABLES Performing Organization Address [facility]/ZIP Co de Phone Number [facility] [place] [address] * Potassium (05/08/2023 4:00 PM EDT) Pathologist [facility] Potassium 3.9 3.5 - 5.0 mmol/L [facility] Comment: Please note: ??Patients [...] MD CHEMISTRY ORDERABL ES Performing Organization Address City/[facility]/ZIP Co de Phone Number [facility] [place] [address] * Heparin (unfractionated) Level (05/08/2023 4:00 PM EDT) UF Heparin 0.43 IU/mL [facility] Comment: Heparin (anti-Xa) [...] MD HEMATOLOGY ORDERAB LES Performing Organization Address City/State/[facility] Co de Phone Number [facility] [place] [address] * EKG 12 Lead (05/08/2023 3:51 PM EDT) Ventricular rate 98 BPM MUSE SYSTEM Atrial Rate 98 BPM MUSE SYSTEM P-R Interval 150 ms MUSE SYSTEM QRS Duration 102 ms MUSE SYSTEM Q-T Interval 358 ms MUSE SYSTEM QTC Calculated (Bezet) 457 ms MUSE SYSTEM Calculated P [place] 38 degrees MUSE SYSTEM Calculated R [place] 48 degrees MUSE SYSTEM Calculated T [place] -112 degrees MUSE SYSTEM INTERPRETATION Sinus rhythm with frequent and consecutive Premature ventricular and fusion complexes Septal infarct , age undetermined ST & T wave abnormality, consider anterolateral ischemia Abnormal ECG When compared with ECG of 09-NOV-2022 11:17, T wave inversion now evident in Anterolateral leads Confirmed by MD Harshil, Enrique Bell ([id number]) on 05/10/2023 8:11:46 AM MUSE SYSTEM 05/08/2023 3:51 PM EDT 05/10/2023 8:11 AM EDT Radha Hollins MD ECG ORDERABLES MUSE SYSTEM * (ABNORMAL) Differential, Automated (05/08/2023 11:38 AM EDT) Neutrophil % 71.3 % [facility] Neutrophil Absolute 2.91 1.70 - 6.10 x10(3)/mc L [facility] Lymph % 19.1 % [facility] Lymphocytes Abs 0.8(L) 0.9 - 3.2 x10(3)/mc L [facility] Monocyte % 9.0 % [facility] Monocyte Abs 0.4 0.3 - 0.9 x10(3)/mc L [facility] Eos % 0.2 % [facility] Eosinophils Abs 0.0 0.0 - 0.4 x10(3)/mc L [facility] Basophil % 0.2 % [facility] Baso Absolute 0.0 0.0 - 0.1 x10(3)/mc L [facility] Immature Gran % 0.20 % [facility] Comment: Immature granulocytes(IG's)percentage and absolute count will include metamyelocytes, myelocytes, and promyelocytes. Blood smears from CBCs yielding IG's will be scanned manually for concordance. If this scan disagrees with the automated IG or if promyelocytes are noted, a manual differential will be performed. Immature Gran Absolute 0.01 0.00 - 0.04 x10(3)/mc L [facility] Blood 05/08/2023 11:3 8 AM EDT 05/08/2023 11:44 AM EDT Narrative Resulting Agency Comment Spec In Lab Lincoln Sal MD HEMATOLOGY ORDERA BLES [facility] [place] [address] * (ABNORMAL) Hemogram (05/08/2023 11:38 AM EDT) White Blood Cell 4.1 4.0 - 9.5 x10(3)/mc L [facility] Red Blood Cell 3.05(L) 4.00 - 5.21 x10(6)/mc L [facility] Hemoglobin 10.2(L) 11.7 - 15.5 g/dL [facility] Hematocrit 29.6(L) 35.7 - 45.8 % [facility] Mean Cell Volume 97.0(H) 82.6 - 94.4 fL [facility] Mean Cell Hemoglobin 33.4(H) 27.1 - 32.0 pg [facility] Mean Cell Hemoglobin Concentration 34.5 31.7 - 35.0 g/dL [facility] Platelet 136(L) 145 - 357 x10(3)/mc L [facility] RDW Standard Deviation 44.3 37.0 - 46.0 fL [facility] RDW coefficient of variation 12.6 11.5 - 14.1 % [facility] Mean Platelet Volume 9.4 7.6 - 12.9 fL [facility] NRBC% auto 0.0 % [facility] NRBC Absolute 0.000 0.000 - 0.000 x10(3)/[facility] Blood 05/08/2023 11:3 8 AM EDT 05/08/2023 11:44 AM EDT Narrative Resulting Agency Comment Spec In Lab Lincoln Sal MD HEMATOLOGY ORDERA BLES Performing Organization Address City/[facility] Co de Phone Number [facility] [place] [address] * TSH (05/08/2023 11:38 AM EDT) Thyroid Stimulating Hormone 1.27 0.27 - 4.20 mcIU/mL [facility] Comment: Reference Interval (mcIU/mL): Females: ??First Trimester: 0.23-3.88 ??Second Trimester: 0.22-3.90 ??Third Trimester: 0.44-4.66 Blood 05/08/2023 11:3 8 AM EDT 05/08/2023 11:44 AM EDT Narrative Resulting Agency Comment Spec In Lab Enrique Chua MD CHEMISTRY ORDERABLES [facility] [place] [address] * (ABNORMAL) Phosphorus (05/08/2023 11:38 AM EDT) Phosphorus 4.7(H) 2.5 - 4.5 mg/dL [facility] Blood 05/08/2023 11:3 8 AM EDT 05/08/2023 11:44 AM EDT Narrative Resulting Agency Comment Spec In Lab Enrique Chua MD CHEMISTRY ORDERABLES Performing Organization Address City/[facility] Co de Phone Number [facility] [place] [address] * Magnesium (05/08/2023 11:38 AM EDT) Magnesium 0.76 0.69 - 1.07 mmol/L [facility] Blood 05/08/2023 11:3 8 AM EDT 05/08/2023 11:44 AM EDT Narrative Resulting Agency Comment Spec In Lab Enrique Chua MD CHEMISTRY ORDERABLES Performing Organization Address City/[facility] Co de Phone Number [facility] [place] [address] * (ABNORMAL) Basic Metabolic Panel (non-fasting) (05/08/2023 11:38 AM EDT) Glucose 97 65 - 199 mg/dL [facility] Comment:Diabetes: >=200 mg/d L plus symptoms Blood Urea Nitrogen 27(H) 8 - 18 mg/dL [facility] Creatinine 1.02 0.70 - 1.20 mg/dL [facility] Sodium 139 135 - 145 mmol/L [facility] Potassium 4.2 3.5 - 5.0 mmol/L [facility] Comment: Please note: ??Patients with WBC >100,000 may have falsely elevated Potassium levels. ??For accurate Potassium quantification in these patients send serum separator tube (gold top) for subsequent determinations. ??Contact the Clinical Chemistry Laboratory if there are any questions. Chloride 105 98 - 107 mmol/L [facility] Carbon Dioxide 20(L) 22 - 31 mmol/L [facility] Anion Gap 14 5 - 15 mmol/L [facility] Calcium 9.4 8.5 - 10.5 mg/dL [facility] Est Glomerular Filtration Rate 60 >=60 mL/min/1. 73 m?? [facility] Comment: This patient's estimated GFR [...] In Lab Enrique Chua MD CHEMISTRY ORDERABLES [facility] [place] [address] * ECHO COMPLETE (05/08/2023 11:02 AM EDT) EF 25 HEARTLAB SYSTEM Anatomical Region Laterality Modality Cardiac Other 05/08/2023 10:0 3 AM EDT Narrative 05/08/2023 11:51 AM EDT ? Echocardiogram Report Name: PURNIMA THACKER ?Study Date: 05/08/2023 10:03 AMBP: 92/64 mmHg ? Patient Location: [facility]^CV29^A : 1955 ? Height: 155 cm ? Account: [id number] Age: 67 yrs ? Weight: 78 kg Gender: Female ?BSA: 1.8 m2 Ordering Physician: ENRIQUE CHUA Referring Physician: MARIO ALBERTO CHIN Performed By: CHUCKIE Canchola Reason For Study: SAVR Stenosis Exam Location: [facility]. Interpretation Summary -Left ventricle is severely dilated [...] worsening stenosis. Mitral regurgitation is similar. Procedure Complete-32429. Satisfactory quality. There is normal sinus rhythm. [...] Study Date: 0:03 AMBP: 92/64 mmHg Patient Location:[facility]^CV29^A : 1955 Height: 155 cm Account: [id number] Age: 67 yrs Weight: 78 kg Gender: Female BSA: 1.8 m2 Ordering Physician: ENRIQUE CHUA Referring Physician: MARIO ALBERTO CHIN Performed By: CHUCKIE Canchola Reason For Study: SAVR Stenosis Exam Location: [facility]. Interpretation Summary -Left ventricle is severely dilated [...] suggestsworsening stenosis. Mitral regurgitation is similar. Procedure Complete-51016. Satisfactory quality. There is normal sinus rhythm. 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 valve disease Mild coronary artery disease by [facility] 11/09/2022 Mixed connective tissue disease [...] ejection fraction Mild coronary artery disease by [facility] 11/09/2022 Stenosis of prosthetic aortic [...] dose on Wed05/12/23 at 1030, Until Discontinued, [place] teeth, Routine Given 05/12/2023 10:04 AM EDT [...] 0923, Until 05/08/23 at 1103, Alisha Norris: cabinet override heparin (porcine) 50 units/mL in dextrose [...] 10 mg, Subcutaneous, ONCE, 1 dose, On 05/18/23 at 1615, For use in Interventional Radiology [...] 0000, Until Wed05/12/23 at 0151, Magdalena Baires: ellyinet override milrinone (Primacor) (0.2 mg/mL) in dextrose 5% 100 mL infusion 0.125 mcg/kg/min ? 77.4 kg (2.9025 mL/hr, rounded to 2.9 mL/hr), Intravenous, CONTINUOUS, Starting on Wed05/12/23 at 0200, Until [place] 05/16/23 at 1026, All adjustments must be ordered [...] 0052, Until Wed05/12/23 at 0118, Nery Zepeda: rigot override NORepinephrine (Levophed) (16 mcg/mL) in dextrose [...] at 0831, Side port TKO rate, per CC flush protocol Rate/Dose Verify 05/13/2023 6:00 AM EDT 10 mL/hr 10 mL/hr Rate/Dose Verify 05/13/2023 4:00 AM EDT 10 mL/hr 10 mL/h r Rate/Dose Verify 05/13/2023 2:00 AM EDT 10 mL/hr 10 mL/h r sodium chloride 0.9% infusion 10-30 mL/hr, Intravenous, DAILY PRN, Starting on Wed05/12/23 at 0944, Until Wed05/17/23 at 0831, Side port TKO rate, per [facility] flush protocol. Rate/Dose Verify 05/17/2023 8:00 AM [...] Wed05/12/23 at 0051, Until Wed05/12/23 at 0119, Diminico, Nery L.: cabinet override vasopressin (Vasostrict) (0.2 units/mL) 100 [...] 1030, Until Wed05/13/23 at 0826, Titrate to keep systolic blood [...] Gallego RN) 0827 (Given - Provider: Kia M Kainz, RN) atorvastatin (Lipitor) tablet 10 mg 10 mg, [...] 0827 (Given - Provider: Kia Gallego, RN) lidocaine (Lidoderm) 5% patch 1 patch [...] VALDO)2012 (Given - Provider: Favian Mckeon RN) 826 (Given - Provider: Kia Gallego RN) pantoprazole [...] Gallego RN) 08 (Given - Provider: Kia Gallego RN) polyethylene [...] Routine 0029 (Given - Provider: Favian Mckeon RN)013 (Not Given - Provider: Favian Mckeon RN - Reason: See comment - Comment: duplicate)0844 (Given - Provider: Gabino Calhoun RN)1738 (Given - Provider: Gabino Calhoun RN) 013 (Not Given - Provider: Favian [...] VALDO)2053 (Given - Provider: Favian Mckeon RN) 0832 [...] Routine documented in this encounter Care Teams Paper Products Inspector Relationship Specialty Start Date End Date Magdalena Acosta MD [address] [place] [address] PCP - General Family Medicine 02/05/23 documented as of this encounter
--- OUTSIDE RECORDS SUMMARY | 2024-03-16 14:09 | XMS_ITS | Encounter Summary ---
Author Organization [facility] [place] [address] Care Team Providers Care Manager Digital Name Role Phone Magdalena Acosta MD Primary Care Provider [phone] Encounter Details Date Type Department Care Team (Late st Contact Info) Description 05/08/2023 [place] [phone] Luis Felipe Ott MD [facility] [place] [address] Social History Tobacco Use Types Packs/Day Years [...] 0426 Referring Provider: Nitesh Baltazar Patient Location: [facility] Presenting Symptoms per OSH: [...] Hgb 10.5 CMP - Cr 1.1 BNP 63184 HsTrop 1358 Lactate 1.6 D-dimer 1183, CTPE pending CXR demonstrated pulmonary vascular congestion US showed bilateral b lines Bedside echo reportedly similar to prior TTE for LV function OSH Interventions: ASA 324 Heparin gtt Plan: Transfer to [facility] Above recommendations/plans are based on my conversation with the referring provider. I have not personally interviewed or examined this patient. Luis Felipe Ott MD Fuel Cell [employer]er Received a call from provider emergently at 715am. Mentating well and BP 87/53. HR 108 and diursingwell. They were about to start phenylephrine which I stressed was not a good option given concern for severe and increasing afterload. She is warm on exam, mentating and urinating and we do not need to amrit a BP if those things remain stable. Nico Segura, PGY-6 [employer] [id number] documented in this encounter Plan of Treatment Upcoming Encounters Date Type Department Care Team (Late st Contact Info) Description 03/01/2025 4:15 PM EDT Office Visit Dermatology at [place] [address] [place] [address] Marek Bonilla MD [address], [address] [place] [address] documented as of this encounter Visit Diagnoses Not on filedocumented in this encounter Care Teams Manager Digital Relationship Specialty Start Date End Date Magdalena Acosta MD [address] [place] [address] PCP - General Family Medicine 02/05/23 documented as of this encounter
--- OUTSIDE RECORDS SUMMARY | 2024-03-16 14:09 | XMS_ITS | Encounter Summary ---
Author Organization [facility] [place] [address] Care Team Providers Care Hunting Sales Associate Name Role Phone Magdalena Acosta MD Primary Care Provider [phone] Reason for Visit * Auth/Cert (Routine) Specialty Diagnoses / Procedures Referred By Contac t Referred To Contact Diagnoses Symptomatic severe aortic stenosis with low ejection fraction NSTEMI, CHF Enrique Chua MD [facility] [place] [address] [facility] Referral ID Status Reason Start Date Expiration Date Visits Re quested Visits Authorized [id number] 1 1 Encounter Details Date Type Department Care Team (Late st Contact Info) Description 05/12/2023 2:50 PM EDT - 05/12/2023 3:50 PM EDT Surgery [place] [address] Antelmo Sharma MD [facility] [place] [address] CARDIAC CATHETERIZATION Social History Tobacco Use Types [...] Patient Age: 67 y.o. Birthdate: 1955 Language: Burundian Race: White Ethnicity: Not nor Admit Date: 05/08/2023 Discharge Date: 05/22/2023 Attending Physician: Alirio [place] MD Follow-up Recommendations for Providers: Please continue routine management of cardiovascular risk factors including blood pressure, lipids,glucose, etc. Please note any medication changes. Patient to follow up with PCP, Magdalena Acosta MD, or Primary Hired Help, Avis Mejia MD, in ~ 7-10 days. Patient to follow up with Community Health Advisor, Dr. Antelmo Sharma, in 2 weeks with an EKG, Echo, CBC, and CMP. Patient to follow up with Nephrology, their office to arrange. Kgrw-Qnfsus-me interval: After initial 30 day follow-up appointment , all TAVR patients will follow-up again in one year with an echo. 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 Secondary Diagnoses: Active Hospital Problems Diagnosis S/P TAVR (transcatheter aortic valve replacement) Cardiogenic shock Symptomatic severe aortic stenosis with low ejection fraction Mild coronary artery disease by [facility] 11/09/2022 Heart failure with reduced ejection [...] Placement Right 05/18/2023 Laure Ricks PA [facility] INTERVENTIONL RAD PRG CATH PLMT LEFT HEART CATH & ARTS W/INJ & ANGIO IMG S&I N/A 11/09/2022 CORONARY ANGIOGRAPHY; W [facility],POSSIBLE PCI (WRVU 5.6) performed by Mario Alberto Escobedo MD at [facility] CATH LABS PRG COMBINED RIGHT & LEFT HEART CATH W/INJ L VENTRICULOGRAPHY, IMG S&I N/A 05/12/2023 COMBINED RIGHT & LEFT HEART CATH,INC INJ FOR L VENTRICULOGRAPHY (WRVU 5.99) performed by Antelmo Sharma MD at [facility] CATH LABS PRO AORTOPLAS FOR SUPRAVALV STEN N/A 09/21/2016 @AORTOPLASTY FOR SUPRAVALVULAR STENOSIS (WRVU 29.33) performed by Alirio [place] MD at [facility] MAIN OR PRO REPLACE AORTIC VALVE (TAVR/FEDERICO)PERC FEMORAL ARTERY APPROACH 05/12/2023 @TRANSCATHETER AORTIC VALVE REPLACEMENT (TAVR), PERCUTANEOUS FEMORAL (WRVU 22.47) performed by Alirio [place] MD at [facility] CATH LABS PRO REPLACEMENT PROSTHETIC AORTIC VALVE OPEN W CARDIOPULMONARY BYPASS HOMOGRF/STENT N/A 09/21/2016 @REPLACE AORTIC VALVE, OPEN, W\CPB, W\PROSTHETIC VALVE (WRVU 41.32) performed by Alirio [place] MD at [facility] MAIN OR Prior To Admission Medications [...] Major Procedures/Operations: 05/12/23: Successful right transfemoral TAVR Vrlpj-ab-Zleor with a 23 mm Lai 3 THV. Left coronary protection with left main MINNA. Hospital Course: #Severe prosthetic s/p valve in valve TF TAVR #Low coronary heights s/p left main stent for coronary protection #Type 2 NSTEMI, present on arrival, resolved #Acute decompensated HFrEF #Cardiogenic shock #EVANS / Cardiorenal syndrome Purnima Thacker was admitted to [facility] on 05/08/2023 via the Cardiology [...] TAVR and she was brought to the slab miller operator the following morning where Drs. Alirio [place] [...] if you have questions. Please call your Community Health Advisor's office if you have any discharge or drainage from your procedural sites. Your Community Health Advisor, Dr. Antelmo Sharma and/or the Folder Hand may be reached at . Antibiotic prophylaxis: You will need to take antibiotics prior to many invasive tests and treatments, such as dental cleaning, which should be done every 6 months. Your primary care physician or your dentist can prescribe this medication. Please refer to the card with the [employer] Guidelines for more information. You have been provided with a copy of this card. Please refer to the [employer] Guidelines for more information. Good [...] friends, go to a movie, go to mandaeism, etc. Heavy activities: No hunting, skiing, jogging, [...] should resume a low fat, low cholesterol, [employer] Diet Driving: No restrictions. Shower/Bath: You may shower daily. No baths, soaking, or swimming for the first week. Wound care: Wash the sites daily with soap and rinse well, pat dry. Assess for any signs of infection such as increased redness, pain, warmth or drainage. Please call your supervisor mattress and boxsprings's office if you have any discharge or drainage from your procedural sites. If there is a lot of swelling, apply mamta wraps during the day and remove at bedtime. Elevate your legs when you are sitting. Home oxygen therapy: N/A Follow up appointments: Please schedule a follow-up appointment with your PCP, Magdalena Acosta MD, or Primary Hired Help in ~ 7-10 days. You have a follow-up appointment with your Community Health Advisor, Dr. Antelmo Sharma, in 2 weeks with an EKG, Echo, and labs prior to your appointment. You will need follow-up with Nephrology, their office will arrange. Itis-Qdtrpq-tg interval: After initial 30 day follow-up appointment , all TAVR patients will follow-up again in one year with an echo. Cardiac Rehabilitation: Purnima Thacker was seen today regarding participation in the outpatient Phase 2 Cardiac Rehabilitation at [facility]. The patient agrees to a referral to this program. The referral will be sent at discharge and the patient should be contacted by the Program within 1- 2 weeks from discharge. Future Appointments and Orders Future Appointments and Orders Future Appointments Provider Department Dept Phone 07/29/2023 11:00 AM Magdalena Peralta MD [place] [facility] [place] at: [facility] [employer] [facility] [phone] 02/11/2024 2:00 PM Marek Bonilla MD Dermatology at [place] Arrive at: [facility] [address] [phone] Future Orders Complete By Expires Type and Screen Future Surgery, [facility] SAME DAY PROGRAM ONLY) [ZIF9970 Custom] 05/11/2023 Process Instructions: This test is intended ONLY for patients with upcoming surgery for testing prior to the day of surgery obtained through the same day program (4V or SDP). For ALL OTHER PATIENTS, order a Type and Screen (SWT641) This order includes the physician order for an ABO Recheck if requested by the Blood Bank. Scheduling Instructions: Comments: Questions: Date of surgery: CBC (with Diff) [SFG620 Custom] 06/05/2023 12/05/2023 Process Instructions: INCLUDES: WBC, RBC, Hgb, Hct, Platelets, RBC Indices and Differential Scheduling Instructions: Comments: Questions: Comprehensive metabolic panel (non-fasting) [LAB17 Custom] 06/05/2023 08/20/2023 Process Instructions: INCLUDES: Calcium, T Protein, Albumin, AST, ALT, Alk Phos, T Bili, BUN, Creat, GFR, Glucose, Lytes. Scheduling Instructions: Comments: Questions: Echocardiogram Transthoracic [63189 CPT(R)] 06/05/2023 12/05/2023 Process Instructions: Scheduling Instructions: Questions: Where will study be performed?: [facility] Does the patient have Congenital Heart Disease?: Does patient require sedation?: GA rationale: EKG 12 Lead [06148 CPT(R)] 06/05/2023 12/05/2023 Process Instructions: Scheduling Instructions: Questions: Which location will this be performed?: [place] Is a rhythm strip needed?: No [facility] Devices [EQ161 Custom] As directed Process Instructions: Scheduling Instructions: Questions: Device Needed: WALKER (E0143) Patient Height (cm): 154.9 cm (5' 0.98) Patient Weight: 75.4 kg (166 lb 3.2 oz) Diagnosis: Unsteady gait when walking Referral to Cardiac Rehab [IEV860 Custom] As directed Process Instructions: If no progress note charted, please enter Clinical details in comments. Scheduling Instructions: Questions: My question or request is: s/p TAVR. Cardiac rehab at [facility]. Referral to Home Health [REF34 Custom] As directed Process Instructions: If no progress note charted, please enter Clinical details in comments. Scheduling Instructions: Comments: DOCUMENTATION FOR VNA SERVICES PATIENT'S LOCATION: Purnima Thacker [address] [place] [address] [phone] (home) Assistant Secretary's Name: Irineo and brother Raymond In discussion with the attending physician, it is certified that this patient is under his/her careand that MD, or an ASBESTOS REMOVAL WORKER, PIG FARMER, or PA who is working directly with him/her, had a iisv-zk-sdam encounter that meets the physician psvw-xl-cgca encounter requirements with this patient on 05/22/2023. [...] for managing ADLs. HOME HEALTH CARE AGENCY: [facility]. [address] [facility] [address] PHONE: [phone] FAX: [phone] Start of care: Ideally 24-48 hours after [...] [address] / [facility] [phone] All VNA agencies which cover the area of patient's residence have been reviewed, either verbally joao writing, and patient has chosen the home health care agency noted. Questions: Disciplines Requested: Physical Therapy Occupational Therapy Discharge References/Attachments None Arrangements for VNA/home care: As above. (delete if no VNA) Signed: EKATERINA NAVARRETE [facility] Section of Cardiac Surgery Date: 05/22/2023 CC: Magdalena Acosta MD CouplandMairo Alberto maxwell MD [address] [place] [address] documented in this encounter Discharge Instructions * Patient Instructions* Vinod Juárez PA - 05/22/2023 9:32 AM EDT TAVR Discharge Instructions: Call your doctor if: You have a fever of greater than 101 degrees, shaking chills, if you develop redness or drainage from your procedure sites, or if you have questions. Please call your Community Health Advisor's office if you have any discharge or drainage from your procedural sites. Your Community Health Advisor, Dr. Antelmo Sharma and/or the Folder Hand may be reached at . Antibiotic prophylaxis: You will need to take antibiotics prior to many invasive tests and treatments, such as dental cleaning, which should be done every 6 months. Your primary care physician or your dentist can prescribe this medication. Please refer to the card with the [employer] Guidelines for more information. You have been provided with a copy of this card. Please refer to the [employer] Guidelines for more information. Good [...] friends, go to a movie, go to mandaeism, etc. Heavy activities: No hunting, skiing, jogging, [...] should resume a low fat, low cholesterol, [employer] Diet Driving: No restrictions. Shower/Bath: You may shower daily. No baths, soaking, or swimming for the first week. Wound care: Wash the sites daily with soap and rinse well, pat dry. Assess for any signs of infection such as increased redness, pain, warmth or drainage. Please call your supervisor mattress and boxsprings's office if you have any discharge or drainage from your procedural sites. If there is a lot of swelling, apply mamta wraps during the day and remove at bedtime. Elevate your legs when you are sitting. Home oxygen therapy: N/A Follow up appointments: Please schedule a follow-up appointment with your PCP, Magdalena Acosta MD, or Primary Hired Help in ~ 7-10 days. You have a follow-up appointment with your Community Health Advisor, Dr. Antelom Sharma, in 2 weeks with an EKG, Echo, and labs prior to your appointment. You will need follow-up with Nephrology, their office will arrange. Kube-Sadxma-gk interval: After initial 30 day follow-up appointment , all TAVR patients will follow-up again in one year with an echo. Cardiac Rehabilitation: Purnima Gallegol was seen today regarding participation in the outpatient Phase 2 Cardiac Rehabilitation at [facility]. The patient agrees to a [...] ins ( tef) Haven Ba, PT Pager: [phone] Physical Therapy Inpatient Rehabilitation Department * Nico [...] 0600 and on the weekends please page [phone]. * Jory Paniagua - 05/20/2023 3:52 PM [...] vomiting Last Bowel Movement: 05/20/23 Jory Paniagua Delivery Department Supervisor * Tong Mike, OT - 05/20/2023 3:16 [...] Placement Right 05/18/2023 Laure Ricks PA [facility] INTERVENTIONL RAD PRG CATH PLMT LEFT HEART CATH & ARTS W/INJ & ANGIO IMG S&I N/A 11/09/2022 CORONARY ANGIOGRAPHY; W [facility],POSSIBLE PCI (WRVU 5.6) performed by Mario Alberto Escobedo MD at [facility] CATH LABS PRG COMBINED RIGHT & LEFT HEART CATH W/INJ L VENTRICULOGRAPHY, IMG S&I N/A 05/12/2023 COMBINED RIGHT & LEFT HEART CATH,INC INJ FOR L VENTRICULOGRAPHY (WRVU 5.99) performed by Antelmo Sharma MD at [facility] CATH LABS PRO AORTOPLAS FOR SUPRAVALV STEN N/A 09/21/2016 @AORTOPLASTY FOR SUPRAVALVULAR STENOSIS (WRVU 29.33) performed by Alirio Hudson MD at [facility] MAIN OR PRO REPLACE AORTIC VALVE (TAVR/FEDERICO)PERC FEMORAL ARTERY APPROACH 05/12/2023 @TRANSCATHETER AORTIC VALVE REPLACEMENT (TAVR), PERCUTANEOUS FEMORAL (WRVU 22.47) performed by Alirio Hudson MD at [facility] CATH LABS PRO REPLACEMENT PROSTHETIC AORTIC VALVE OPEN W CARDIOPULMONARY BYPASS HOMOGRF/STENT N/A 09/21/2016 @REPLACE AORTIC VALVE, OPEN, W\CPB, W\PROSTHETIC VALVE (WRVU 41.32) performed by Alirio Hudson MD at [facility] MAIN OR Social History: Patient lives alone. Home Setup: Pt lives on one level with tub shower and three steps to enter. DME: none used [employer] Baseline ADL/Mobility: Independent with ADLs and IADLs. [...] awareness: WFL Vision & Perception: corrective lenses realtime court reporter Communication: WFL Range of motion, strength, coordination: [...] Discharge planning. Total Minutes, Occupational Therapy: 28 ([phone]) OT Evaluation Code Rationale: Diagnosis & Pertinent Co-Morbidities affecting Plan of Care: see PMHx Occupational Profile & Client History: Brief Expanded Extensive x Assessment of Occupational Performance: 1-3 performance deficits 3-5 performance deficits x 5 + performance deficits Clinical Decision Making: Low Moderate High x Clinical decision making of moderate complexity using standardized patient assessment instrument and measurable assessment of functional outcome. Pager: [phone] TONG MIKE OT 05/20/2023 Occupational Therapy Rehabilitation [...] 0600 and on the weekends please page [phone]. * Rylie Rodriguez MD - 05/19/2023 3:59 [...] and plan. Cynthia Blackburn MD Nephrology Pager: [phone] * Diana Espino - 05/19/2023 1:49 PM EDT Natural History Collections Curator Encounter Note Patient Name: uPrnima Thacker : [id number] MR#: [id number] Admit Date: 05/08/2023 9:14 AM Hospital Day [...] as stated. Total Minutes, Physical Therapy: 38 ([phone]) Henrik Navarrete PTA Pager: [phone] Physical Therapy Inpatient Rehabilitation Department * Nico Palacois PA - 05/19/2023 8:28 AM EDT Cardiac [...] 0600 and on the weekends please page [phone]. * Laure Ricks PA - 05/19/2023 7:56 [...] Ricks PA-C Interventional Radiology IR Team Pager [phone] * Consuelo Espinoza RN - 05/18/2023 4:13 PM EDT ANGIO NURSING DATABASE Name: Purnima Thacker Date of : 1955 AGE: 67 y.o. [address]: [address] [place] [address] (home) Mobile: No relevant phone numbers on [...] tremor G25.0 Hyperlipidemia, unspecified E78.5 Obesity E66.9 NCIOLAS (obstructive sleep apnea) G47.33 Rosacea L71.9 Neck pain M54.2 Mixed connective tissue disease M35.1 Symptomatic severe aortic stenosis with low ejection fraction I35.0 Mild coronary artery disease by [facility] 11/09/2022 I25.10 Heart failure with reduced [...] and plan. Cynthia Blackburn MD Nephrology Pager: [phone] * Magdalena Puri, CUSTOMER SERVICE CLERK - 05/18/2023 10:51 AM EDT Images from the original note were not included. [facility] [place] [address] STRUCTURAL HEART DISEASE CONSULTATION NOTE PRIMARY CARE [...] stenosis. She is now status post TAVR Olwsb-ja-Jixhh with a 23 mm Lai 3 THV 05/12/[address] Sharma. Preliminary findings: Successful right transfemoral TAVR Qtxrg-hz-Kmpei with a 23 mm Lai 3 THV. [...] ejection fraction Mild coronary artery disease by [facility] 11/09/2022 Heart failure with reduced ejection [...] tablet 81 mg 81 mg Oral Daily PryorMara ernandez APRN 81 mg at 05/18/23 0826 ondansetron (pf) (Zofran) (2 mg/mL) injection 4 mg 4 mg Intravenous Q8H PRN PryorMara ernandez APRN4 mg at 05/12/23 0736 pantoprazole EC (Protonix) tablet 40 mg 40 mg Oral Daily MaggieaMra ernandez APRN 40 mg at 05/18/23 0826 Or pantoprazole (Protonix) injection 40 mg 40 mg Intravenous Daily PryorMara ernandez APRN 40 mg at 05/12/23 1004 senna-docusate (Pericolace) 8.6-50 mg per tablet 2 tablet 2 tablet Oral Daily MaggieMara ernandez APRN 2 tablet at 05/16/232111 bisacodyL (Dulcolax) suppository 10 mg 10 mg Rectal Daily PRN MaggieMara ernandez APRN melatonin tablet 6 mg 6 mg Oral Nightly PRN PryorMara ernandez APRN 6 mg at 05/17/232024 influenza vaccine adjuvanted (Adult 65 Yrs +) (FluAD Quad) (PF) IM injection 0.5 mL 0.5 mL Intramuscular Prior to discharge PryorMara ernandez APRN FAMILY HISTORY: No family history [...] stenosis. She is now status post TAVR Ptjog-bj-Wkioy with a 23 mm Lai 3 THV [...] Magdalena Puri APRN Structural Heart Team Pager [phone] Team Office Please see addendum by Dr. Sharma for final plan and recommendations Associated attestation - Antelmo Sharma MD - 05/19/2023 10:52 PM EDT I have reviewed Magdalena Puri APRN's above history and I agree with the details as written. The assessment and plan were formulated in discussion with me and I agree with them as documented. Antelmo Sharma MD Pager [phone] * Nico Palacios PA - 05/18/2023 8:13 [...] downs. Breathing ok, worked with PT yesterday. Sehn diet. +flatus, + bm. O: Temp: [36.4 [...] 0600 and on the weekends please page [phone]. * Loli Hernandez, PT - 05/17/2023 5:27 [...] plan as stated. Time IN / OUT: 1997-4343 Total Minutes, Physical Therapy: 54 Billing Code: te-sx2, te-f, angely HERNANDEZ PT Pager: [phone] Physical Therapy Inpatient Rehabilitation Department * Cynthia [...] Well controlled. Cynthia Blackburn MD Nephrology Pager: [phone] * Mara Serrano, CUSTOMER SERVICE CLERK - 05/17/2023 8:26 AM EDT Cardiac Surgery [...] today pending Oxy prn. Hold NSAIDS given EAVNS Disposition: CVCC Status tx to CSCU Attempt Cardiopulmonary Resuscitation - Inpatient Discussed with attending surgeon on rounds this morning. MARA SERRANO, ANURAG 05/17/2023 Between the hours of 1800 - 0600 and on the weekends please page [phone]. * Guerda Del Valle C - 05/16/2023 10:44 AM EDT Nutrition Services Note - Low Nutrition Acuity Purnima Thacker is a 67 y.o. female Reason for intervention: hospital day 9 Nutrition Plan: Continue diet order Encourage good PO Lasix and Zofran noted Added special serve: open containers Monitor weight Patient scheduled for a hospital day 9 nutrition evaluation. General Distillery Worker met with pt at bedside. Pt reports that her appetite and PO has much improved since admission. Denies nausea/vomiting or trouble chewing/swallowing. General Distillery Worker provided snack list but pt not interested in adding snacks at this time. Her only concern was that she is worried that she will eat too much which will cause too much pressure in her stomach. General Distillery Worker assured pt and suggested eating smaller [...] Last Bowel Movement: 05/10/23 Guerda Del Valle Delivery Department Supervisor * Vinod Juárez PA - 05/16/2023 10:19 [...] 0600 and on the weekends please page [phone]. * Michael Jeffers MD - 05/16/2023 8:11 AM EDT Images from the original note were not included. Hypertension-Nephrology Inpatient Follow-up Purnima Thacker [id number] 1955 ID: 67 y.o. old female seen [...] IRONSAT 12 (L) 05/16/2023 SFOLATE >20.0 07/03/2022 [id number] 07/03/2022 Lab Results Component Value Date [...] Dr. Ayoub. Please contact me at phone: [phone] or pager: [phone] with any questions. Michael Jeffers MD Nephrology [...] -Nephrology consulted, labs and renal US ordered -[place] removed, ambulated around the unit -bilateral pleural [...] 0600 and on the weekends please page [phone]. * Hortencia Cody MD - 05/15/2023 2:07 [...] not included. Hypertension-Nephrology Inpatient Follow-up Purnima Thacker [id number] 1955 ID: 67 y.o. old female seen [...] HGB 7.8 (L) 05/13/2023 SFOLATE >20.0 07/03/2022 [id number] 07/03/2022 Lab Results Component Value Date [...] Dr. Ayoub. Please contact me at phone: [phone] or pager: [phone] with any questions. Michael Jeffers MD Nephrology [...] balance. Check CXR. Avoid NSAIDS. * Hortencia Coyd MD - 05/14/2023 6:29 PM EDT Critical [...] last 720 hours. T/L/D Art ETT CVL Hoffman ASSESSMENT, MANAGEMENT, and DECISION MAKIN y.o. female [...] outlined inthis evaluation. HAVEN BA, PT Pager: [phone] Physical Therapy Inpatient Rehabilitation Department Time IN / OUT: 6946-0603 Total time: Total Minutes, Physical Therapy: 30 [...] 0600 and on the weekends please page [phone]. * Antelmo Sharma MD - 05/14/2023 7:56 AM EDT Images from the original note were not included. [facility] [place] [address] STRUCTURAL HEART DISEASE CONSULTATION NOTE PRIMARY CARE [...] stenosis. She is now status post TAVR Sbsbw-jv-Znxbu with a 23 mm Lai 3 THV 05/12/[address] Sharma. Preliminary findings: Successful right transfemoral TAVR Zeeju-lk-Vkcjl with a 23 mm Lai 3 THV. [...] perforation. Interval Events: - 05/12 Transferred to [facility] post- TAVR for pressor/inotropic support (Levo, [...] ejection fraction Mild coronary artery disease by [facility] 11/09/2022 Heart failure with reduced ejection [...] stenosis. She is now status post TAVR Cclol-hg-Njdnp with a 23 mm Lai 3 THV 05/12/[address] Sharma. Janet TAVR case notable for coronary LAD protective MINNA. Status post TAVR, the patient was transferred to [facility] for pressor and inotropic support. Pressors weaned overnight 05/12. Cardiac indices by thermodilution remained >3 with continued Milrinone 0.125 mcg/kg/min prior to PAC removal. EKG todayNSR with stable KS/QRS intervals. Hemoglobin slowly down-trending (8.2-> 7.8-> 7.2). [...] Brody Kaplan APRN Structural Heart Team Pager [phone] Team Office Please see addendum by Dr. [...] exposure. Nephrology consultationtoday. Antelmo Sharma MD Pager [phone] * Antelmo Cardenas RN - 05/14/2023 5:18 AM EDT Pt AOx4, complaining of mild/moderate generalized pain (states her Meloxicam is effective at home) currently refusing prn oxycodone. NAEON, hemodynamically stable on Milrinone, Maps >65, ST in [id number]'s down to NSR with frequent multifocal PVC's. [...] from the original note were not included. [facility] [place] [address] STRUCTURAL HEART DISEASE PROGRESS NOTE PRIMARY CARE [...] stenosis. She is now status post TAVR Ndazd-zf-Umzzf with a 23 mm Lai 3 THV 05/12/[address] Sharma. Preliminary findings: Successful right transfemoral TAVR Efjee-vv-Aoenl with a 23 mm Lai 3 THV. [...] ejection fraction Mild coronary artery disease by [facility] 11/09/2022 Heart failure with reduced ejection [...] stenosis. She is now status post TAVR Zeeta-jx-Lqqon with a 23 mm Lia 3 THV 05/12/[address] Sharma. Janet TAVR case notable for coronary LAD protective MINNA. Status post TAVR, the patient was transferred to [facility] for pressor and inotropic support. Pressors weaned overnight. Cardiac indices by thermodilution remain greater than 3 with continued Milrinone 0.125 mcg/kg/min. EKG today NSR with stable KS/QRS intervals. Hemoglobin 7.8 today from 8.5, likely [...] Brody Kaplan APRN Structural Heart Team Pager [phone] Team Office Please see addendum by Dr. [...] DAPT moving forward. Antelmo Sharma MD Pager [phone] * Bonita Miguel PA - 05/13/2023 8:30 AM EDT Cardiac Surgery Progress Note Purnima Thacker is a 67 y.o. 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 PMH of s/p tissue AVR (2017), mixed connective tissue disease HTN, HLD, NICOLAS, diverticulosis, rosacea, essential tremor, and depression. 24h Events: From slab miller operator for above procedure Extubated at ~1600 to [...] soft b/l, no evidence of hematoma. Tubes/Lines/Drains: Hesper[place], RIJ, A-line, Art, PIV Assessment/Plan: 67 y.o. [...] 0600 and on the weekends please page [phone]. * Onelia Schwartz MD - 05/12/2023 1:44 [...] ejection fraction Mild coronary artery disease by [facility] 11/09/2022 Heart failure with reduced ejection [...] FiO2 weaned to 40%. 1105: ABG 7.34/42/73/22 0958-8784: SBT performed and passed on these settings [...] PCP: Magdalena Acosta MD PCP phone number: [phone] Date of Admission: 05/08/2023 ( Hospital Day [...] 1447 PHART -- 7.34* 7.34* -- -- [id number] -- 30* 30* -- -- PO2ART -- 72* 81* -- -- PTI6XUP -- 16.0* 15.7* -- -- LACTATEVEN 2.4* 2.7* 2.7* 4.8* 2.9* VBG (Venous Blood Gas) Recent Labs 05/12/23 0700 05/12/238 05/12/2310505/11/23193905/11/23 144 LACTATEVEN 2.4* 2.7* 2.7* 4.8* 2.9* Mixed Venous Sat Recent Labs 05/12/23 0508 05/12/23 0321 05/12/23 0114 05/12/23 0030 [id number] 30.7 32.7 37.3 25.1 Objective: Vitals Last [...] who have questions please contact the health manager care that requested your imaging first. Electronically signed by: ALIX RUVALCABA MD, [facility] ([phone]), at 05/10/2023 1:[address] Cardiac for [...] who have questions please contact the health manager care that requested your imaging first. Electronically signed by: Cullen Narayanan MD, [facility] ([phone]), at 05/11/2023 4:[address] Angiogram Abdomen [...] who have questions please contact the health manager care that requested your imaging first. Electronically signed by: Eileen Gomes MD, [facility] ([phone]), at 05/11/2023 2:42 PM XR Chest One [...] who have questions please contact the health manager care that requested your imaging first. Chest One [...] who have questions please contact the health manager care that requested your imaging first. Assessment & [...] and inotrope. She is planned for a fdptm-bk-jyrqr TAVR this morning, which should hopefully improve [...] FACP, FACC Section of Cardiovascular Medicine [facility] Dot Compliance Coordinatorday care supervisor [facility] [employer] [facility] * Noreen Deutsch RN - 05/12/2023 [...] ejection fraction Mild coronary artery disease by [facility] 11/09/2022 Heart failure with reduced ejection [...] 05/11/2023 4:11 PM EDT Reported off to GEODUCK DIVER and pt transferred over in the bed for higher level of care. * Antelmo Sharma MD - 05/11/2023 9:45 AM EDT Images from the original note were not included. [facility] [place] [address] STRUCTURAL HEART DISEASE CONSULTATION NOTE PRIMARY CARE [...] who had been referred for possible TAVR bztcj-if-jcotq evaluation. Her primary symptoms are of dyspnea [...] Ms. Thacker is originally from [facility]. 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 She [...] ejection fraction Mild coronary artery disease by [facility] 11/09/2022 Heart failure with reduced ejection [...] hour(s)) Lactate, whole blood, send to lab [place] Result Value Ref Range Lactate WB 3.1 (H) 0.5 - 2.2 mmol/L Heparin (unfractionated) Level Result Value Ref Range Heparin UFH Level 0.46 IU/mL Lactate, whole blood, send to lab ([facility] Result Value Ref Range Lactate WB 1.8 [...] leads Confirmed by MD Harshil, Enrique Bell ([id number]) on 05/10/2023 8:11:46 AM Cardiac Cath 11/09/2022 [...] alert Dr. Hudson of her inpatient status, [place] primary cardiac surgeon. Based on recent clinic visit, tentative plan had been for TAVR JANET issa ferrera given her chronological age. Cardiac cath 11/09/2022 notable for non-obstructive coronary disease. TAVR CTAs planned for today. Will review her case with cardiac surgery to determine best timing and therapies for her valve intervention. Addendum 05/11/2023 6:48 PM Due to decompensating HFrEF, she was transferred to [facility] this afternoon for further management. TAVR CT imaging support for adequate ileofemoral access. Given her acute deterioration today, will planfor RTF TAVR on 05/12/2023. Brody Kaplan APRN Structural Heart Disease Pager [phone] Please see addendum by Dr. Sharma for [...] signed and dated. Antelmo Sharma MD Pager [phone] * Harini Lance MD - 05/11/2023 6:06 AM EDT Images from the original note were not included. Cardiology Progress Note Patient info: Name: Purnima Thacker : 1955 PCP: Magdalena Acosta MD PCP phone number: [phone] Date of Admission: 05/08/2023 ( Hospital Day [...] who have questions please contact the health manager care that requested your imaging first. 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, 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) Mild coronary artery disease by [facility] 11/09/2022 Hyperlipidemia, unspecified NICOLAS (obstructive sleep [...] PCP: Magdalena Acosta MD PCP phone number: [phone] Date of Admission: 05/08/2023 ( Hospital Day [...] 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) Mild coronary artery disease by [facility] 11/09/2022 Hyperlipidemia, unspecified NICOLAS (obstructive sleep [...] PCP: Magdalena Acosta MD PCP phone number: [phone] Date of Admission: 05/08/2023 ( Hospital Day [...] Gas) No results found for: PHART, PO2ART, YHW7DZI, QWB4HUT Microbiology: Microbiology Results (Last 30 days) No [...] PPx: Diet: Daily Healthy Menu Choices/Cardiac diet ([facility] Lines: Peripheral IV Line - Single Lumen [...] 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) Mild coronary artery disease by [facility] 11/09/2022 Hyperlipidemia, unspecified NICOLAS (obstructive sleep [...] fraction I35.0 Mild coronary artery disease by [facility] 11/09/2022 I25.10 Heart failure with reduced ejection fraction due to heart valve disease I50.20, I38 Cardiogenic shock R57.0 S/P TAVR (transcatheter aortic valve replacement) Z95.2 Past Medical History: Diagnosis Date Anemia Past Surgical History: Procedure Laterality Date PRG CATH PLID LEFT HEART CATH & ARTS W/INJ & ANGIO IMG S&I N/A 11/09/2022 CORONARY ANGIOGRAPHY; W [facility],POSSIBLE PCI (WRVU 5.6) performed by Mario Alberto Escobedo MD at [facility] CATH LABS PRO AORTOPLAS FOR SUPRAVALV STEN N/A 09/21/2016 @AORTOPLASTY FOR SUPRAVALVULAR STENOSIS (WRVU 29.33) performed by Alirio Hudson MD at [facility] MAIN OR PRO REPLACEMENT PROSTHETIC AORTIC VALVE OPEN W CARDIOPULMONARY BYPASS HOMOGRF/STENT N/A 09/21/2016 @REPLACE AORTIC VALVE, OPEN, W\CPB, W\PROSTHETIC VALVE (WRVU 41.32) performed by Alirio Hudson MD at [facility] MAIN OR Social History and Habits: [...] fraction I35.0 Mild coronary artery disease by [facility] 11/09/2022 I25.10 Heart failure with reduced ejection fraction due to heart valve disease I50.20, I38 Cardiogenic shock R57.0 S/P TAVR (transcatheter aortic valve replacement) Z95.2 Past Medical History: Diagnosis Date Anemia Past Surgical History: Procedure Laterality Date PRG CATH PLID LEFT HEART CATH & ARTS W/INJ & ANGIO IMG S&I N/A 11/09/2022 CORONARY ANGIOGRAPHY; W [facility],POSSIBLE PCI (WRVU 5.6) performed by Mario Alberto Escobedo MD at [facility] CATH LABS PRO AORTOPLAS FOR SUPRAVALV STEN N/A 09/21/2016 @AORTOPLASTY FOR SUPRAVALVULAR STENOSIS (WRVU 29.33) performed by Alirio Hudson MD at [facility] MAIN OR PRO REPLACEMENT PROSTHETIC AORTIC VALVE OPEN W CARDIOPULMONARY BYPASS HOMOGRF/STENT N/A 09/21/2016 @REPLACE AORTIC VALVE, OPEN, W\CPB, W\PROSTHETIC VALVE (WRVU 41.32) performed by Alirio Hudson MD at [facility] MAIN OR Social History and Habits: [...] days, which prompted her to present to [employer]. She also endorses some intermittent retrosternal chest pain with exertion.She endorses some dizziness with exertion, but has not gotten faint or passed out. At [facility] [facility] she was noted to be afebrile, blood pressure 105/64, HR 120s, satting 95% on 2L NC. Labs from [facility] are below, of note she [...] 89/59, which prompted the transfer to us. [facility] labs: CBC - Hgb 10.5 CMP - Cr 1.1 BNP 73195 HsTrop 1358 Lactate 1.6 D-dimer 1183 Interval History Patient was admitted to [facility] due to concern on low BP [...] Klaudia Reid MD Internal Medicine PGY-1 Pager [phone], M1-S1 Service Associated attestation - Juan Luis Gonzalez MD - 05/08/2023 10:00 PM EDT Cardiology Attending Addendum Active Hospital Problems Diagnosis Symptomatic severe aortic stenosis with low ejection fraction Heart failure with reduced ejection fraction due to heart valve disease Mild coronary artery disease by [facility] 11/09/2022 Hyperlipidemia, unspecified History of aortic [...] PCP: Magdalena Acosta MD PCP phone number: [phone] Date of Admission: 05/08/2023 ( Hospital Day 0 days ) Attending:Enrique Chua MD ID: Purnima Thacker is a 67 y.o. female w/ PMH of s/p bioprosthetic AVR in 2016 with recent concern for severe restenosis, HTN, HLD, mixed connective tissue disease, who presents in transfer from [facility] with worsening BONILLA and weight [...] four days, which promptedher to present to [employer]. She also endorses some intermittent retrosternal chest pain with exertion. She endorses some dizziness with exertion, but has not gotten faint or passed out. At [facility] she was noted to be afebrile, blood pressure 105/64, HR 120s, satting 95% on 2L NC. Labs from [facility] are below, of note she [...] 89/59, which prompted the transfer to us. [facility] labs: CBC - Hgb 10.5 CMP - Cr 1.1 BNP 92480 HsTrop 1358 Lactate 1.6 D-dimer 1183 Vasoactive [...] tissue disease, who [facility] BONILLA and weight gain [...] #Routine Diet: Daily Healthy Menu Choices/Cardiac diet ([facility]) DVT Prophylaxis: heparin gtt GI Prophylaxis: none [...] to the planned procedure. Hand Hygiene: The iphone developer did perform hand hygiene prior to arterial [...] Successful arterial line placement. Crispin Timmons MD Folder Hand Associated attestation - Onelia Schwartz MD - [...] (flow was non-pulsatile) and appearance of blood. Hesperia-Marily catheter was placed and locked at 55 [...] information for follow-up [facility], [place] [address] [place] [address] Cardiac Rehab, [place] [address] [place] [address] [facility], [place] [address] [place] [address] Transportation: family or friend will provide *Brother [...] Type: *No Product type* / Secondary Insurance: [employer] [place] Prescription Coverage: Yes This plan was formulated with input from patient, family (please identify family/friend involved ifapplicable) and team. All are in agreement with plan. Aliza Martino MSN-Ed, RN ACM jira developer Office of Care Management Pager #[phone] * Plan of Care - Favian Mckeon [...] Lana Chaudhary RN - 05/21/2023 4:46 PM [facility]: [place] [facility] referral OFFICE OF CARE MANAGEMENT [...] Type: *No Product type* / Secondary Insurance: [employer] [facility] [place] Last Physical Therapy Recommendation: [...] planning needs. describing our affiliations within the [facility] and educate about their right to choose where referrals are sent. provide a list of Home Health Agencies / Durable Medical Equipment vendors which serve their preferred geographic area. They have requested referrals to: [facility] [address] [place] [address] [facility] @ [place], [place] Note routed to a Clinical Account Liaison who will communicate referrals to facilities and provide any required information. Transportation: family or friend will provide *Brother Raymond on Tuesday 05/22 at 1000 Barriers to discharge: Does not have home 22/02 assist available until tomorrow Tuesday 05/22 Plan going forward: Discharge home into the 22/02 home care of brother Raymond with [facility] and [facility] PT/OT services on Tuesday 05/22 [...] Attending: All Staff: Staff Role Juanita Almaguer Casting Sorter Laure Ricks PA Physician Shipyard Painter Magdalena Rodriguez RN Radiology Nurse Consuelo Espinoza dairy inspector Nurse Post-operative diagnosis/Indication: Right pleural effusion Name [...] Type: *No Product type* / Secondary Insurance: Arthena [facility] [place] Last Physical Therapy Recommendation: assisted facility, swing bed rehabilitation facility with to be determined Last Occupational Therapy Recommendation: with Plan for discharge is: Senior Care Facility / Swing Outpatient Agency/Support Group Needs: None Agency Referrals: Based on discussions with the multi-disciplinary healthcare team, the patient would benefit from SNF / Swing level of care at discharge. I have met with the patient to: discuss discharge planning needs. provide the [facility], Office of Care Management letter from the Supervisor Pastry pertaining to rehab referrals. provide a letter describing our affiliations within the [facility] and educate about their right to choose where referrals are sent. provide the CMS Star Quality Rating handout. review the different levels of rehab including SNF, swing, and acute. provide a list of facilities within their preferred geographic area. request that they provide at least three choices for referral. They have requested referrals to: [facility] [address] [place] [address] [facility] ([facility]) [address] [place] [address] (Accepts pts only after exhausting all other local SNF options) [facility] (Swing) ([facility]) [address] [place] [address] PHONE: [phone] FAX: [phone] [facility] ([facility]) [facility]) [address] [place] [address] PHONE: [phone] FAX: [phone] Note routed to a Clinical Account Liaison who will communicate referrals to facilities and [...] Crenshaw RN - 05/17/2023 10:[address] [facility]ATION Purnima Thacker was seen today regarding participation in the outpatient Phase 2 Cardiac Rehabilitation at [facility]. The patient agrees to a [...] from the original note were not included. [facility] NEPHROLOGY/HYPERTENSION CONSULT NOTE PATIENT: Purnima Thacker [...] in her course. She ultimately underwent a ukwqg-px-epcxf procedure on and tolerated it well (see operative details). [facility] and sedated on some pressors [...] 1423 05/12/23 1105 PHART 7.39 7.37 7.34* RLE9TAN 33* 36 42 PO2ART 101 102 73* ZFE3FCW 19.5* 20.4 22.1 LACTATEVEN 1.5 1.8 2.8* ULM2KUG 40 40 40 PFRATIOART2 252 255 182 VBG (Venous Blood Gas) Recent Labs 05/12/23 1557 05/12/23 1423 05/12/23 1105 LACTATEVEN 1.5 1.8 2.8* Mixed Venous Sat Recent Labs 05/12/23 1425 05/12/23 0508 05/12/23 0321 C1ESRV8 59.9 30.7 32.7 LFT's: Recent Labs 05/14/23 0110 05/13/23 0115 05/12/23 0600 BILITOT 0.4 0.5 0.9 BILIDIR -- 0.3 -- ALBUMIN 3.6 3.0* 3.5 ALKPHOS 86 85 100 ALT 437* 903* 1,174* AST 319* 792* 1,435* No results found for: UPROTCREAT No results found for: TPROTEINPEP, ALBELECT No results found for: MICROALBUR, [id number] No results found for: HA1C Lab Results Component Value Date CALCIUM 8.5 05/14/2023 PHOS 4.7 (H) 05/08/2023 No results found for: 25OHVITD MICROBIOLOGY: ProcedureComponentValueUnitsDate/TimeUrine culture [[id number]]Collected: 05/11/231921Lab Status: Final resultSpecimen: Clean Catch UrineUpdated: [...] consulted for assessment if this patient needs FULFILLMENT ASSOCIATE. Atthis time, we can likely hold off on FULFILLMENT ASSOCIATE. Her volume status appears sufficient and her metabolic kanwal angements with mild acidosis is not too profound. Patient does not have significant uremic symptoms. We can hold off for today, but the patient is a high risk candidate for needing FULFILLMENT ASSOCIATE in future daysespecially if her Cr curve trends the direction it is for the next several days. S/p Navgc-ek-Exllg TF TAVR: Management per cardiology. On milrinone gtt. PLAN: - Please obtain following diagnostics: renal US, urinalysis, urine prot/Cr ratio, urine albumin/Cr ratio, CK, uric acid, serum osmol, daily VBGs - No acute indications for FULFILLMENT ASSOCIATE/dialysis. We will keep close eye on Cr trend, volume status, and metabolics to ensure patient still does not need FULFILLMENT ASSOCIATE as she ensues intrinsic renal recovery [...] M.H.Katherine., M.A. PGY-V Nephrology-Hypertension Fellow Page # [phone] 2nd floor, Architectural Wood Model Maker [address] [place] [address] * Care Management - Mario Alberto Olmos [...] type* / Secondary Insurance: [facility] Plan for discharge is: Home w/o Services [...] for a TAVR at 730. Returned to [facility] at 0945. Was intubated in the slab miller operator due to agitation. Maintained bedrest for 5 [...] Operative Note Patient Name: Purnima Thacker : [id number] MR#: [id number] Case Date: 05/12/2023 Surgeon: Surgeon(s) and Role: [...] procedure Note: Patient Name: Purnima Thacker : [id number] MR#: [id number] Case Date: 05/12/2023 Operators Surgeon: Surgeon(s) and [...] main with 4.0 x 30 mm Resolute [place] Drug Eluting Stent Perclose x1 + Angio-seal 8 Fr x1, RFA Manual pressure, LFA Manual pressure, LFV Endotracheal intubation (performed by cardiac anesthesia) Preliminary findings: Successful right transfemoral TAVR Sngxn-kn-Pbfif with a 23 mm Lai 3 THV. [...] MD, M.Sc. Structural Heart Disease Fellow Pager :[phone] Antelmo Sharma MD Pager [phone] * Op Note - Alirio Hudson MD - 05/12/2023 7:37 AM EDT Preop Diagnosis: Severe aortic stenosis, symptomatic. Postop Diagnosis: Same. Procedure: Transfemoral TAVR procedure with 23mm valve. Surgeon: Alirio Hudson M.D. Hired Help: Danny CULP Procedure: The patient was taken to the slab miller operator. The patient had monitored anesthesia care. 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 [facility] [place] [address] STRUCTURAL HEART DISEASE CONSULTATION NOTE PRIMARY CARE [...] who had been referred for possible TAVR evozk-aj-vkeiw evaluation. Her primary symptoms are of dyspnea [...] Ms. Thacker is originally from [facility]. 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 PROBLEM LIST: Patient Active Problem List Diagnosis Symptomatic severe aortic stenosis with low ejection fraction Mild coronary artery disease by [facility] 11/09/2022 Heart failure with reduced ejection [...] 5 mL 5 mL Intravenous BID Klaudia Ried MD 5 mL at 05/09/23 2056 sodium [...] mEq 40 mEq Oral Q4H PRN Cristina Jernigna MD Or potassium chloride ER (Klor-Con M) [...] hour(s)) Lactate, whole blood, send to lab ([facility] Result Value Ref Range Lactate WB 1.8 [...] leads Confirmed by MD Harshil, Enrique Bell ([id number]) on 05/10/2023 8:11:46 AM Assessment and Plan: [...] alert Dr. Hudson of her inpatient status, [place] primary cardiac surgeon. Based on recent clinic [...] Antelmo Sharma MD Structural Heart Disease Pager [phone] * Plan of Care - Sarahi Nice RN - 05/10/2023 3:55 AM EDTSumavis: RN Note and Care Plan Sarahi Nice RN assumed care of pt at time of their arrival to room 362 from [facility]. Pt voices shortness of breath at [...] VTE (Venous Thromboembolism) Risk Flowsheets (Taken 05/09/2023 6006) VTE Prevention/Management: anticoagulant therapy Intervention: Prevent Infection [...] listening utilized Taken 05/08/20231999 by Alivia Kauffman dry house attendant/Support System Care: self-care encouraged support provided Problem: [...] Transfer from another hospital Location: admitted from [facility] Reason for Hospitalization: Critical aortic stenosis, causing symptoms Past medical History: Past Medical History: Diagnosis Date Anemia Hospitalizations Within the Past 30 Days: no previous admission in last 30 days Current Decision-Making Capacity: Self If AD's have not been completed the following surrogate would be surrogate decision maker per [place] surrogate decision making law. (Only good for 180 days) Any patient receiving care in [place] must abide by [place] law. The hierarchy for surrogate decision making [...] DME: none Home Address confirmed as: [address] [place] [address] Social & Family Supports: All names listed [...] type* / Secondary Insurance: [facility] ONLY if patient has Medicare A&B - Does this patient have secondary insurance?: Yes ; Prescription Coverage: Yes Preferred Pharmacy: updated to [facility] [place] Status: Patient is a : No Primary Care Provider confirmed: Magdalena Acosta MD [phone] Patient/Caregiver Goals of Treatment: Potential Needs for [...] transition of care planning. Alie Bradshaw RN, Pager-[phone] * Plan of Care - Emily Lucero RN - 05/08/2023 2:54 PM EDT OUTCOME EVALUATION NOTE: OUTCOME SUMMARY: Pt arrived from [facility]. A&O, no c/o pain or [...] PM EDT Office Visit Dermatology at [place] [address] [place] [id number] Marek Bonilla MD [address] [facility] [address] [place] [address] Scheduled Referrals Name Type Priority Associated Diagnoses [...] Heart Cath W/Inj L Ventriculography, Img S&I (30090) 05/12/2023 7:37 AM EDT Aortic valve stenosis, [...] DOPP COLOR DOPP (07/08/2023 12:15 PM EST) [facility] EF 20 HEARTLAB SYSTEM Anatomical Region Laterality Modality Cardiac Other 07/08/2023 10:3 1 AM EST Narrative 07/08/2023 12:26 PM EST [address] [place] [id number] ? Echocardiogram Report Name: PURNIMA THACKER ?Study Date: 07/08/2023 10:31 AMBP: 118/60 mmHg ? Patient Location: : 1955 ? Height: 155 cm ? Account: [id number] Age: 67 yrs ? Weight: 74 kg Gender: Female ?BSA: 1.7 m2 Ordering Physician: ALIRIO HUDSON Referring Physician: VINOD JUÁREZ Performed By: Felicia Norris RDCS Reason For Study: S/P TAVR Exam Location: [facility]. Interpretation Summary Left ventricular systolic function [...] no significant change (post-procedure). Procedure Limited - 96273. Doppler - 77231. Color Doppler - 53614. Satisfactory quality. This study is limited because [...] Note Lee Kincaid MD - 07/08/2023 [address] [place] [address] Echocardiogram Report Name: KIRSTIE PURNIMA M Study Date: 310:31 AMBP: 118/60 mmHg Patient Location: : 1955 Height: 155 cm Account: [id number] Age: 67 yrs Weight: 74 kg Gender: Female BSA: 1.7 m2 Ordering Physician: ALIRIO HUDSON Referring Physician: VINOD JUÁREZ Performed By: Felicia Norris RDCS Reason For Study: S/P TAVR Exam Location: [facility]. Interpretation Summary Left ventricular systolic function [...] is nosignificant change (post-procedure). Procedure Limited - 50895. Doppler - 68112. Color Doppler - 11969. Satisfactoryquality. This study is limited because of [...] EST) Glucose 93 65 - 199 mg/dL [facility] Comment:Diabetes: >=200 mg/d L plus symptoms Blood Urea Nitrogen 19(H) 8 - 18 mg/dL [facility] Creatinine 0.81 0.70 - 1.20 mg/dL [facility] Sodium 142 135 - 145 mmol/L [facility] Potassium 3.8 3.5 - 5.0 mmol/L [facility] Comment: Please note: ??Patients with WBC >100,000 may have falsely elevated Potassium levels. ??For accurate Potassium quantification in these patients send serum separator tube (gold top) for subsequent determinations. ??Contact the Clinical Chemistry Laboratory if there are any questions. Chloride 104 98 - 107 mmol/L [facility] Carbon Dioxide 26 22 - 31 mmol/L [facility] Anion Gap 12 5 - 15 mmol/L [facility] Calcium 10.2 8.5 - 10.5 mg/dL [facility] Protein, Total 7.4 6.1 - 8.0 g/dL [facility] Albumin 4.1 3.2 - 5.2 g/dL [facility] Aspartate Aminotransferase 24 0 - 30 unit/L [facility] Alanine Aminotransferase 12 0 - 30 unit/L [facility] Alkaline Phosphatase 93 35 - 105 unit/L [facility] Bilirubin, Total 0.3 0.2 - 1.3 mg/dL [facility] Est Glomerular Filtration Rate 80 >=60 mL/min/1. 73 m?? [facility] Comment: This patient's estimated GFR was [...] Lab Alirio Hudson MD CHEMISTRY ORDERABLE S [facility] [place] [address] * (ABNORMAL) Basic Metabolic Panel (non-fasting) (05/22/2023 3:57 AM EDT) Pathologist [facility] Glucose 88 65 - 199 mg/dL [facility] Comment:Diabetes: >=200 mg/d L plus symptoms Blood Urea Nitrogen 21(H) 8 - 18 mg/dL [facility] Creatinine 0.69(L) 0.70 - 1.20 mg/dL [facility] Sodium 136 135 - 145 mmol/L [facility] Potassium 3.6 3.5 - 5.0 mmol/L [facility] Comment: Please note: ??Patients with WBC >100,000 may have falsely elevated Potassium levels. ??For accurate Potassium quantification in these patients send serum separator tube (gold top) for subsequent determinations. ??Contact the Clinical Chemistry Laboratory if there are any questions. Chloride 102 98 - 107 mmol/L [facility] Carbon Dioxide 23 22 - 31 mmol/L [facility] Anion Gap 11 5 - 15 mmol/L [facility] Calcium 8.6 8.5 - 10.5 mg/dL [facility] Est Glomerular Filtration Rate 95 >=60 mL/min/1. 73 m?? [facility] Comment: This patient's estimated [...] Agency Comment Spec In Lab Mara Serrano CUSTOMER SERVICE CLERK CHEMISTRY ORDERABL ES [facility] [place] [place] [address] * (ABNORMAL) Basic Metabolic Panel (non-fasting) (05/21/2023 5:06 AM EDT) Glucose 87 65 - 199 mg/dL [facility] Comment:Diabetes: >=200 mg/d L plus symptoms Blood Urea Nitrogen 25(H) 8 - 18 mg/dL [facility] Creatinine 0.84 0.70 - 1.20 mg/dL [facility] Sodium 136 135 - 145 mmol/L [facility] Potassium 3.6 3.5 - 5.0 mmol/L [facility] Comment: Please note: ??Patients with WBC >100,000 may have falsely elevated Potassium levels. ??For accurate Potassium quantification in these patients send serum separator tube (gold top) for subsequent determinations. ??Contact the Clinical Chemistry Laboratory if there are any questions. Chloride 102 98 - 107 mmol/L [facility] Carbon Dioxide 26 22 - 31 mmol/L [facility] Anion Gap 8 5 - 15 mmol/L [facility] Calcium 8.9 8.5 - 10.5 mg/dL [facility] Est Glomerular Filtration Rate 76 >=60 mL/min/1. 73 m?? [facility] Comment: This patient's estimated GFR was [...] Narrative Resulting Agency Comment Spec In Lab [facility] CUSTOMER SERVICE CLERK CHEMISTRY ORDERABL ES Performing Organization Address [facility] Co de Phone Number [facility] [place] [place] [address] * Lavender Tube HOLD (05/20/2023 2:52 AM EDT) Lavender Hold Sample in lab. [facility] Blood Venous Draw / Unknown 05/20/2023 2:52 AM EDT 05/20/2023 3:04 AM EDT Mara Pryor CUSTOMER SERVICE CLERK HEMATOLOGY ORDERAB LES Performing Organization Address [facility] de Phone Number [facility] [place] [place] [address] * (ABNORMAL) Basic Metabolic Panel (non-fasting) (05/20/2023 2:52 AM EDT) Glucose 152 65 - 199 mg/dL [facility] Comment:Diabetes: >=200 mg/d L plus symptoms Blood Urea Nitrogen 33(H) 8 - 18 mg/dL [facility] Creatinine 0.82 0.70 - 1.20 mg/dL [facility] Sodium 137 135 - 145 mmol/L [facility] Potassium 3.7 3.5 - 5.0 mmol/L [facility] Comment: Please note: ??Patients with WBC >100,000 may have falsely elevated Potassium levels. ??For accurate Potassium quantification in these patients send serum separator tube (gold top) for subsequent determinations. ??Contact the Clinical Chemistry Laboratory if there are any questions. Chloride 99 98 - 107 mmol/L [facility] Carbon Dioxide 22 22 - 31 mmol/L [facility] Anion Gap 16(H) 5 - 15 mmol/L [facility] Calcium 9.0 8.5 - 10.5 mg/dL [facility] Est Glomerular Filtration Rate 78 >=60 mL/min/1. 73 m?? [facility] Comment: This patient's estimated GFR was [...] Agency Comment Spec In Lab Mara [place]field CUSTOMER SERVICE CLERK CHEMISTRY ORDERABL ES Performing Organization Address [facility] Co de Phone Number [facility] [place] [place] [address] * (ABNORMAL) Potassium (05/20/2023 2:52 AM EDT) [facility] Signature Potassium 3.4(L) 3.5 - 5.0 mmol/L [facility] Comment: Please note: ??Patients with WBC >100,000 may have falsely elevated Potassium levels. ??For accurate Potassium quantification in these patients send serum separator tube (gold top) for subsequent determinations. ??Contact the Clinical Chemistry Laboratory if there are any questions. Blood 05/20/2023 2:52 AM EDT 05/20/2023 3:03 AM EDT Narrative Resulting Agency Comment Spec In Lab Mara Maggie CUSTOMER SERVICE CLERK CHEMISTRY ORDERABL ES Performing Organization Address City/[facility] Co de Phone Number [facility] [place] [place] [address] * XR Chest PA & Lateral (Generic) [...] who have questions please contact the health manager care that requested your imaging first. ? Electronically signed by: Chyna Johnson MD, [facility] ??([phone]), at 05/19/2023 2:19 PM Narrative 05/19/2023 2:19 [...] patients who have questions please contactthe health manager care that requested your imaging first. Electronically signed by: Chyna Johnson MD, [facility]([phone]), at 05/19/2023 2:19 PM Alirio Hudson MD IMG DX ORDERABLES * (ABNORMAL) Basic Metabolic Panel (non-fasting) (05/19/2023 5:49 AM EDT) Glucose 93 65 - 199 mg/dL [facility] Comment:Diabetes: >=200 mg/d L plus symptoms Blood Urea Nitrogen 45(H) 8 - 18 mg/dL [facility] Creatinine 1.02 0.70 - 1.20 mg/dL [facility] Sodium 138 135 - 145 mmol/L [facility] Potassium 3.9 3.5 - 5.0 mmol/L [facility] Comment: Please note: ??Patients with WBC >100,000 may have falsely elevated Potassium levels. ??For accurate Potassium quantification in these patients send serum separator tube (gold top) for subsequent determinations. ??Contact the Clinical Chemistry Laboratory if there are any questions. Chloride 102 98 - 107 mmol/L [facility] Carbon Dioxide 26 22 - 31 mmol/L [facility] Anion Gap 10 5 - 15 mmol/L [facility] Calcium 9.7 8.5 - 10.5 mg/dL [facility] Est Glomerular Filtration Rate 60 >=60 mL/min/1. 73 m?? [facility] Comment: This patient's estimated [...] Agency Comment Spec In Lab Mara Serrano CUSTOMER SERVICE CLERK CHEMISTRY ORDERABL ES [facility] [place] [place] [address] * IR Chest Tube Placement Right (05/18/2023 [...] EDT) Glucose 95 65 - 199 mg/dL [facility] Comment:Diabetes: >=200 mg/d L plus symptoms Blood Urea Nitrogen 71(H) 8 - 18 mg/dL [facility] Comment:result rechecked-[facility] Creatinine 1.64(H) 0.70 - 1.20 mg/dL [facility] Comment:result rechecked-[facility] Sodium 137 135 - 145 mmol/L [facility] Potassium 3.7 3.5 - 5.0 mmol/L [facility] Comment: Please note: ??Patients with WBC >100,000 may have falsely elevated Potassium levels. ??For accurate Potassium quantification in these patients send serum separator tube (gold top) for subsequent determinations. ??Contact the Clinical Chemistry Laboratory if there are any questions. Chloride 100 98 - 107 mmol/L [facility] Carbon Dioxide 24 22 - 31 mmol/L [facility] Anion Gap 13 5 - 15 mmol/L [facility] Calcium 9.7 8.5 - 10.5 mg/dL [facility] Est Glomerular Filtration Rate 34(L) >=60 mL/min/1. 73 m?? [facility] Comment: This patient's estimated GFR was [...] Agency Comment Spec In Lab Mara Serrano CUSTOMER SERVICE CLERK CHEMISTRY ORDERABL ES [facility] [place] [place] [address] * XR Chest PA & Lateral (Generic) [...] who have questions please contact the health manager care that requested your imaging first. ? Narrative [...] patients who have questions please contactthe health manager care that requested your imaging first. Electronically signed by: Ghassan Reyes MD, [facility]([phone]), at 05/17/2023 11:46 AM Alirio Hudson MD IMG DX ORDERABLES * (ABNORMAL) Comprehensive metabolic panel (non-fasting) (05/17/2023 4:35 AM EDT) Glucose 89 65 - 199 mg/dL [facility] Comment:Diabetes: >=200 mg/d L plus symptoms Blood Urea Nitrogen 97(H) 8 - 18 mg/dL [facility] Creatinine 2.97(H) 0.70 - 1.20 mg/dL [facility] Comment:result rechecked-JSJc Sodium 135 135 - 145 mmol/L [facility] Potassium 4.1 3.5 - 5.0 mmol/L [facility] Comment: Please note: ??Patients with WBC >100,000 may have falsely elevated Potassium levels. ??For accurate Potassium quantification in these patients send serum separator tube (gold top) for subsequent determinations. ??Contact the Clinical Chemistry Laboratory if there are any questions. Chloride 97(L) 98 - 107 mmol/L [facility] Carbon Dioxide 22 22 - 31 mmol/L [facility] Anion Gap 16(H) 5 - 15 mmol/L [facility] Calcium 9.6 8.5 - 10.5 mg/dL [facility] Protein, Total 6.5 6.1 - 8.0 g/dL [facility] Albumin 3.7 3.2 - 5.2 g/dL [facility] Aspartate Aminotransferase 58(H) 0 - 30 unit/L [facility] Alanine Aminotransferase 66(H) 0 - 30 unit/L [facility] Alkaline Phosphatase 86 35 - 105 unit/L [facility] Bilirubin, Total 0.6 0.2 - 1.3 mg/dL [facility] Est Glomerular Filtration Rate 17(L) >=60 mL/min/1. 73 m?? [facility] Comment: This patient's estimated GFR was [...] Lab Alirio Hudson MD CHEMISTRY ORDERABLE S [facility] [place] [place] [address] * Potassium (05/16/2023 11:15 PM EDT) Potassium 3.7 3.5 - 5.0 mmol/L [facility] Comment: Please note: ??Patients with WBC [...] CHEMISTRY ORDERABLE S Performing Organization Address [facility] Co de Phone Number [facility] [place] [place] [address] * Magnesium (05/16/2023 5:22 PM EDT) Magnesium 0.96 0.69 - 1.07 mmol/L [facility] Blood 05/16/2023 5:22 PM EDT 05/16/2023 5:27 PM EDT Narrative Resulting Agency Comment Spec In Lab Alirio Hudson MD CHEMISTRY ORDERABLE S Performing Organization Address [facility] Co de Phone Number [facility] [place] [place] [address] * (ABNORMAL) Basic Metabolic Panel (non-fasting) (05/16/2023 5:22 PM EDT) Glucose 106 65 - 199 mg/dL [facility] Comment:Diabetes: >=200 mg/d L plus symptoms Blood Urea Nitrogen 103(H) 8 - 18 mg/dL [facility] Creatinine 3.91(H) 0.70 - 1.20 mg/dL [facility] Comment:result rechecked-imm Sodium 132(L) 135 - 145 mmol/L [facility] Potassium 3.6 3.5 - 5.0 mmol/L [facility] Comment: Please note: ??Patients with WBC >100,000 may have falsely elevated Potassium levels. ??For accurate Potassium quantification in these patients send serum separator tube (gold top) for subsequent determinations. ??Contact the Clinical Chemistry Laboratory if there are any questions. Chloride 92(L) 98 - 107 mmol/L [facility] Carbon Dioxide 22 22 - 31 mmol/L [facility] Anion Gap 18(H) 5 - 15 mmol/L [facility] Calcium 9.7 8.5 - 10.5 mg/dL [facility] Est Glomerular Filtration Rate 12(L) >=60 mL/min/1. 73 m?? [facility] Comment: This patient's estimated GFR was [...] Lab Alirio Hudson MD CHEMISTRY ORDERABLE S [facility] [place] [address] * (ABNORMAL) Potassium (05/16/2023 11:43 AM EDT) [facility] Signature Potassium 3.3(L) 3.5 - 5.0 mmol/L [facility] Comment: Please note: ??Patients with WBC >100,000 may have falsely elevated Potassium levels. ??For accurate Potassium quantification in these patients send serum separator tube (gold top) for subsequent determinations. ??Contact the Clinical Chemistry Laboratory if there are any questions. Blood 05/16/2023 11:4 3 AM EDT 05/16/2023 11:47 AM EDT Narrative Resulting Agency Comment Spec In Lab Alirio Hudson MD CHEMISTRY ORDERABLE S [facility] [place] [address] * (ABNORMAL) Ferritin (05/16/2023 4:41 AM EDT) Ferritin 1,813(H) 30 - 400 ng/mL [facility] Comment: Pediatric reference ranges [place] [facility] interpret with caution. Reference ranges for females greater than 50 years of age approach values for men, i.e., 30-400 ng/mL. Blood 05/16/2023 4:41 AM EDT 05/16/2023 4:54 AM EDT Narrative Resulting Agency Comment Spec In Lab Kristopher Ayoub MD CHEMISTRY ORDERABLES [facility] [place] [place] [address] * (ABNORMAL) PTH (05/16/2023 4:41 AM EDT) [facility] Parathyroid Hormone 120(H) 15 - 65 pg/mL [facility] Blood 05/16/2023 4:41 AM EDT 05/16/2023 4:54 AM EDT Narrative Resulting Agency Comment Spec In Lab Kristopher Ayoub MD CHEMISTRY ORDERABLES Performing Organization Address City/[facility]/ZIP Co de Phone Number [facility] [place] [address] * Vitamin D, 25-Hydroxy (05/16/2023 4:41 AM EDT) Pathologist [facility] Vitamin D Total 25 OH 33 21 - 100 ng/mL [facility] Vit D Interp Sufficient [facility] Blood 05/16/2023 4:41 AM EDT 05/16/2023 4:54 AM EDT Narrative Resulting Agency Comment Spec In Lab Kristopher Ayoub MD CHEMISTRY ORDERABLES [facility] [place] [place] [address] * (ABNORMAL) Blood Gas Venous ([facility]) (05/16/2023 4:22 AM EDT) Pathologist [facility] pH, Venous 7.41 7.32 - 7.42 [facility] PCO2, Venous 32(L) 41 - 51 mmHg [facility] PO2, Venous 73(H) 25 - 40 mmHg [facility] Bicarbonate, Venous 19.6 mmol/L [facility] Base Excess, Venous -5.1 mmol/L [facility] Hgb Blood Gas 9.7(L) 11.7 - 15.5 g/dL [facility] Oxyhemoglobin, Venous 92.8 % [facility] Carboxyhemoglob in, Venous 0.1 % [facility] Comment: Nonsmokers: 0.5-1.5% COHB Smokers: Variable, but usually less than 10% Toxic: 20-30% COHB Lethal: Greater than 60% COHB Methemoglobin, Venous 0.3 <=1.5 % [facility] Na Whole Blood 130(L) 135 - 145 mmol/L [facility] K Whole Blood 3.7 3.5 - 5.0 mmol/L [facility] Comment: Please note: Patients with WBC >100,000 may have falsely elevated Potassium levels. Contact the Clinical Chemistry Laboratory if there are any questions. ICa Whole Blood 1.15 1.15 - 1.33 mmol/L [facility] Comment: Note: ??Total bilirubin higher than 20 mg/dL may lead to falsely low ionized calcium. CL Whole Blood 95(L) 98 - 107 mmol/L [facility] Gluc Whole Bld 82 65 - 199 mg/dL [facility] Comment:Diabetes: >=200 mg/d L plus symptoms Lactate WB 1.1 0.5 - 2.2 mmol/L [facility] Blood Gas Source Venous [facility] Blood Venous Draw / Unknown 05/16/2023 4:22 AM EDT 05/16/2023 4:31 AM EDT Narrative Resulting Agency Comment Spec In Lab Bonita TOBAR CHEMISTRY ORDERABLES [facility] [place] [address] * (ABNORMAL) Differential, Automated (05/16/2023 4:20 AM EDT) Neutrophil % 84.1 % [facility] Neutrophil Absolute 6.22(H) 1.70 - 6.10 x10(3)/mc L [facility] Lymph % 5.8 % [facility] Lymphocytes Abs 0.4(L) 0.9 - 3.2 x10(3)/mc L [facility] Monocyte % 8.8 % [facility] Monocyte Abs 0.6 0.3 - 0.9 x10(3)/mc L [facility] Eos % 0.4 % [facility] Eosinophils Abs 0.0 0.0 - 0.4 x10(3)/mc L [facility] Basophil % 0.0 % [facility] Baso Absolute 0.0 0.0 - 0.1 x10(3)/mc L [facility] Immature Gran % 0.90 % [facility] Comment: Immature granulocytes(IG's)percentage and absolute count will include metamyelocytes, myelocytes, and promyelocytes. Blood smears from CBCs yielding IG's will be scanned manually for concordance. If this scan disagrees with the automated IG or if promyelocytes are noted, a manual differential will be performed. Immature Gran Absolute 0.07(H) 0.00 - 0.04 x10(3)/mc L [facility] Blood 05/16/2023 4:20 AM EDT 05/16/2023 4:29 AM EDT Narrative Resulting Agency Comment Spec In Lab James Agustin MD HEMATOLOGY ORDER JODIE [facility] [place] [address] * (ABNORMAL) Hemogram (05/16/2023 4:20 AM EDT) White Blood Cell 7.4 4.0 - 9.5 x10(3)/mc L [facility] Red Blood Cell 2.40(L) 4.00 - 5.21 x10(6)/mc L [facility] Hemoglobin 7.8(L) 11.7 - 15.5 g/dL [facility] Hematocrit 22.5(L) 35.7 - 45.8 % [facility] Mean Cell Volume 93.8 82.6 - 94.4 fL [facility] Mean Cell Hemoglobin 32.5(H) 27.1 - 32.0 pg [facility] Mean Cell Hemoglobin Concentration 34.7 31.7 - 35.0 g/dL [facility] Platelet 120(L) 145 - 357 x10(3)/mc L [facility] RDW Standard Deviation 42.9 37.0 - 46.0 fL [facility] RDW coefficient of variation 12.9 11.5 - 14.1 % [facility] Mean Platelet Volume 11.3 7.6 - 12.9 fL [facility] NRBC% auto 0.7 % [facility] NRBC Absolute 0.050(H) 0.000 - 0.000 x10(3)/mc L [facility] Blood 05/16/2023 4:20 AM EDT 05/16/2023 4:29 AM EDT Narrative Resulting Agency Comment Spec In Lab James Agustin MD HEMATOLOGY ORDER JODIE [facility] [place] [address] * (ABNORMAL) Basic Metabolic Panel (non-fasting) (05/16/2023 4:20 AM EDT) Glucose 89 65 - 199 mg/dL [facility] Comment:Diabetes: >=200 mg/d L plus symptoms Blood Urea Nitrogen 108(H) 8 - 18 mg/dL [facility] Creatinine 4.74(H) 0.70 - 1.20 mg/dL [facility] Comment:result rechecked-OLIVA Sodium 132(L) 135 - 145 mmol/L [facility] Potassium 3.9 3.5 - 5.0 mmol/L [facility] Comment: Please note: ??Patients with WBC >100,000 may have falsely elevated Potassium levels. ??For accurate Potassium quantification in these patients send serum separator tube (gold top) for subsequent determinations. ??Contact the Clinical Chemistry Laboratory if there are any questions. Chloride 95(L) 98 - 107 mmol/L [facility] Carbon Dioxide 18(L) 22 - 31 mmol/L [facility] Anion Gap 19(H) 5 - 15 mmol/L [facility] Calcium 9.2 8.5 - 10.5 mg/dL [facility] Est Glomerular Filtration Rate 10(L) >=60 mL/min/1. 73 m?? [facility] Comment: This patient's estimated GFR was [...] Resulting Agency Comment Spec In Lab lAirio Hudson MD CHEMISTRY ORDERABLE S [facility] [place] [address] * (ABNORMAL) Iron and TIBC (05/16/2023 4:20 AM EDT) Iron 31 30 - 150 mcg/dL [facility] TIBC 259 250 - 450 mcg/dL [facility] Iron Saturation 12(L) 20 - 50 % [facility] Blood 05/16/2023 4:20 AM EDT 05/16/2023 4:29 AM EDT Narrative Resulting Agency Comment Spec In Lab Kristopher Ayoub MD CHEMISTRY ORDERABLES [facility] [place] [address] * (ABNORMAL) Basic Metabolic Panel (non-fasting) (05/15/2023 12:50 AM EDT) Glucose 101 65 - 199 mg/dL [facility] Comment:Diabetes: >=200 mg/d L plus symptoms Blood Urea Nitrogen 109(H) 8 - 18 mg/dL [facility] Creatinine 5.62(H) 0.70 - 1.20 mg/dL [facility] Comment:result rechecked-KS Sodium 131(L) 135 - 145 mmol/L [facility] Comment:result rechecked-KS Potassium 3.7 3.5 - 5.0 mmol/L [facility] Comment: result rechecked-KS Please note: ??Patients with WBC >100,000 may have falsely elevated Potassium levels. ??For accurate Potassium quantification in these patients send serum separator tube (gold top) for subsequent determinations. ??Contact the Clinical Chemistry Laboratory if there are any questions. Chloride 92(L) 98 - 107 mmol/L [facility] Comment:result rechecked-KS Carbon Dioxide 18(L) 22 - 31 mmol/L [facility] Comment:result rechecked-KS Anion Gap 21(H) 5 - 15 mmol/L [facility] Calcium 8.9 8.5 - 10.5 mg/dL [facility] Est Glomerular Filtration Rate 8(L) >=60 mL/min/1. 73 m?? [facility] Comment: This patient's estimated GFR was [...] Lab Alirio Hudson MD CHEMISTRY ORDERABLE S [facility] [place] [address] * (ABNORMAL) Hemogram (05/15/2023 12:50 AM EDT) White Blood Cell 9.1 4.0 - 9.5 x10(3)/mc L [facility] Red Blood Cell 2.19(L) 4.00 - 5.21 x10(6)/mc L [facility] Hemoglobin 7.2(L) 11.7 - 15.5 g/dL [facility] Hematocrit 20.6(L) 35.7 - 45.8 % [facility] Mean Cell Volume 94.1 82.6 - 94.4 fL [facility] Mean Cell Hemoglobin 32.9(H) 27.1 - 32.0 pg [facility] Mean Cell Hemoglobin Concentration 35.0 31.7 - 35.0 g/dL [facility] Platelet 109(L) 145 - 357 x10(3)/mc L [facility] RDW Standard Deviation 43.6 37.0 - 46.0 fL [facility] RDW coefficient of variation 12.9 11.5 - 14.1 % [facility] Mean Platelet Volume 10.4 7.6 - 12.9 fL [facility] NRBC% auto 2.1 % [facility] NRBC Absolute 0.190(H) 0.000 - 0.000 x10(3)/ L [facility] Blood 05/15/2023 12:5 0 AM EDT 05/15/2023 12:52 AM EDT Narrative Resulting Agency Comment Spec In Lab Alirio Hudson MD HEMATOLOGY ORDERABL ES Performing Organization Address City/State/[facility] Co de Phone Number [facility] [place] [address] * (ABNORMAL) BLOOD GAS 2 VENOUS (05/15/2023 12:49 AM EDT) pH, Venous 7.33 7.32 - 7.42 [facility] PCO2, Venous 37(L) 41 - 51 mmHg [facility] PO2, Venous 34 25 - 40 mmHg [facility] Bicarbonate, Venous 19.1 mmol/L [facility] Base Excess, Venous -6.8 mmol/L [facility] Hgb Blood Gas 10.8(L) 11.7 - 15.5 g/dL [facility] Oxyhemoglobin, Venous 58.1 % [facility] Carboxyhemoglob in, Venous 0.3 % [facility] Comment: Nonsmokers: 0.5-1.5% COHB Smokers: Variable, but usually less than 10% Toxic: 20-30% COHB Lethal: Greater than 60% COHB Methemoglobin, Venous 0.6 <=1.5 % [facility] Na Whole Blood 136 135 - 145 mmol/L [facility] K Whole Blood 3.7 3.5 - 5.0 mmol/L [facility] Comment: Please note: Patients with WBC >100,000 may have falsely elevated Potassium levels. Contact the Clinical Chemistry Laboratory if there are any questions. ICa Whole Blood 1.12(L) 1.15 - 1.33 mmol/L [facility] Comment: Note: ??Total bilirubin higher than 20 mg/dL may lead to falsely low ionized calcium. CL Whole Blood 95(L) 98 - 107 mmol/L [facility] Gluc Whole Bld 101 65 - 199 mg/dL [facility] Comment:Diabetes: >=200 mg/d L plus symptoms Lactate WB 1.3 0.5 - 2.2 mmol/L [facility] Flow, Mike 1.0 LPM [facility] Blood Gas Source Venous [facility] Blood 05/15/2023 12:4 9 AM EDT 05/15/2023 12:49 AM EDT Alirio Hudson MD POINT OF CARE TEST ORDERABLES Performing Organization Address City/State/[facility] Co de Phone Number [facility] [place] [address] * US Retroperitoneal Complete (05/14/2023 3:53 PM [...] who have questions, please contact the health manager care that requested your imaging first. ? Hayden Robledo, Staff Physician Electronically Signed Final Report ?? 05/14/2023 04:39 pm Narrative 05/14/2023 4:39 PM EDT Renal ? (Signed Final 05/14/2023 04:39 pm) PATIENT INFO: ID #: ? [id number] ?: ??55 (67 yrs)(F) Name: ? PURNIMA THACKER ?Visit Date: 05/14/2023 03:44 pm PERFORMED BY: Attending: ?Meena CULP, Hayden Stafford Resident: ? Nell CULP, Anand August Performed By: ? Consuelo Tello RDMS Referred By: ?ALIRIO HUDSON Location: ? [place] SERVICE(S) PROVIDED: URETRO - Retroperitoneal Complete - [id number] ? [id number] INDICATIONS: EVANS COMPARISON: CT: Abdomen/Pelvis 05/11/23 RIGHT [...] 05/14/2023 04:39 pm) PATIENT INFO: ID #: [id number] : 55 (67 yrs)(F) Name: PURNIMA THACKER Visit Date: 05/14/2023 03:44 pm PERFORMED BY: Attending: Hayden Robledo MD Resident: Anand Camejo MD Performed By: Consuelo Tello RDMS Referred By: ALIRIO HUDSON Location: [place] SERVICE(S) PROVIDED: URETRO - Retroperitoneal Complete - [id number] INDICATIONS: EVANS COMPARISON: CT: Abdomen/Pelvis 05/11/23 RIGHT [...] who have questions, please contact the health manager care that requested your imaging first. Hayden Robledo, Staff Physician Electronically Signed Final Report 05/14/2023 04:39 pm Alirio Hudson MD IMG US GEN ORDERABL ES * CK (05/14/2023 3:17 PM EDT) Creatine Kinase 123 0 - 160 unit/L [facility] Blood 05/14/2023 3:17 PM EDT 05/14/2023 3:31 PM EDT Narrative Resulting Agency Comment Spec In Lab Alirio Hudson MD CHEMISTRY ORDERABLE S Performing Organization Address [facility] Co de Phone Number [facility] [place] [address] * (ABNORMAL) Uric acid (05/14/2023 3:17 PM EDT) Uric Acid 14.9(H) 2.5 - 6.5 mg/dL [facility] Blood 05/14/2023 3:17 PM EDT 05/14/2023 3:31 PM EDT Narrative Resulting Agency Comment Spec In Lab Alirio Hudson MD CHEMISTRY ORDERABLE S Performing Organization Address [facility] Co de Phone Number [facility] [place] [address] * (ABNORMAL) Osmolality (05/14/2023 3:17 PM EDT) Osmolality 311(H) 275 - 295 mOsm/kg [facility] Blood 05/14/2023 3:17 PM EDT 05/14/2023 3:31 PM EDT Narrative Resulting Agency Comment Spec In Lab Alirio Hudson MD [place] [address] * (ABNORMAL) Differential, Automated (05/14/2023 1:10 AM EDT) Neutrophil % 87.2 % [facility] Neutrophil Absolute 9.74(H) 1.70 - 6.10 x10(3)/mc L [facility] Lymph % 3.9 % [facility] Lymphocytes Abs 0.4(L) 0.9 - 3.2 x10(3)/mc L [facility] Monocyte % 7.9 % [facility] Monocyte Abs 0.9 0.3 - 0.9 x10(3)/mc L [facility] Eos % 0.0 % [facility] Eosinophils Abs 0.0 0.0 - 0.4 x10(3)/mc L [facility] Basophil % 0.1 % [facility] Baso Absolute 0.0 0.0 - 0.1 x10(3)/mc L [facility] Immature Gran % 0.90 % [facility] Comment: Immature granulocytes(IG's)percentage and absolute count will include metamyelocytes, myelocytes, and promyelocytes. Blood smears from CBCs yielding IG's will be scanned manually for concordance. If this scan disagrees with the automated IG or if promyelocytes are noted, a manual differential will be performed. Immature Gran Absolute 0.10(H) 0.00 - 0.04 x10(3)/ L [facility] Blood 05/14/2023 1:10 AM EDT 05/14/2023 1:24 AM EDT Narrative Resulting Agency Comment Spec In Lab Bonita TOBAR HEMATOLOGY ORDERABLE S Performing Organization Address City/[facility]/ZIP Co de Phone Number [facility] [place] [address] * (ABNORMAL) Hemogram (05/14/2023 1:10 AM EDT) White Blood Cell 11.2(H) 4.0 - 9.5 x10(3)/mc L [facility] Red Blood Cell 2.19(L) 4.00 - 5.21 x10(6)/mc L [facility] Hemoglobin 7.2(L) 11.7 - 15.5 g/dL [facility] Hematocrit 20.3(L) 35.7 - 45.8 % [facility] Mean Cell Volume 92.7 82.6 - 94.4 fL [facility] Mean Cell Hemoglobin 32.9(H) 27.1 - 32.0 pg [facility] Mean Cell Hemoglobin Concentration 35.5(H) 31.7 - 35.0 g/dL [facility] Platelet 112(L) 145 - 357 x10(3)/mc L [facility] RDW Standard Deviation 41.4 37.0 - 46.0 fL [facility] RDW coefficient of variation 12.5 11.5 - 14.1 % [facility] Mean Platelet Volume 10.4 7.6 - 12.9 fL [facility] NRBC% auto 1.5 % [facility] NRBC Absolute 0.170(H) 0.000 - 0.000 x10(3)/ L [facility] Blood 05/14/2023 1:10 AM EDT 05/14/2023 1:24 AM EDT Narrative Resulting Agency Comment Spec In Lab Bonita TOBAR HEMATOLOGY ORDERABLE S [facility] [place] [address] * (ABNORMAL) Comprehensive metabolic panel (non-fasting) (05/14/2023 1:10 AM EDT) Glucose 120 65 - 199 mg/dL [facility] Comment:Diabetes: >=200 mg/d L plus symptoms Blood Urea Nitrogen 98(H) 8 - 18 mg/dL [facility] Creatinine 4.80(H) 0.70 - 1.20 mg/dL [facility] Comment:result rechecked-ssc Sodium 132(L) 135 - 145 mmol/L [facility] Potassium 4.1 3.5 - 5.0 mmol/L [facility] Comment: Please note: ??Patients with WBC >100,000 may have falsely elevated Potassium levels. ??For accurate Potassium quantification in these patients send serum separator tube (gold top) for subsequent determinations. ??Contact the Clinical Chemistry Laboratory if there are any questions. Chloride 94(L) 98 - 107 mmol/L [facility] Carbon Dioxide 18(L) 22 - 31 mmol/L [facility] Anion Gap 20(H) 5 - 15 mmol/L [facility] Calcium 8.5 8.5 - 10.5 mg/dL [facility] Protein, Total 5.8(L) 6.1 - 8.0 g/dL [facility] Albumin 3.6 3.2 - 5.2 g/dL [facility] Aspartate Aminotransferase 319(H) 0 - 30 unit/L [facility] Alanine Aminotransferase 437(H) 0 - 30 unit/L [facility] Alkaline Phosphatase 86 35 - 105 unit/L [facility] Bilirubin, Total 0.4 0.2 - 1.3 mg/dL [facility] Est Glomerular Filtration Rate 9(L) >=60 mL/min/1. 73 m?? [facility] Comment: This patient's estimated GFR was [...] Lab Alirio Hudson MD CHEMISTRY ORDERABLE S [facility] [place] [address] * APTT (05/13/2023 10:15 AM EDT) Partial Thromboplastin Time 27 25 - 37 sec [facility] Comment: The PTT is NOT appropriate for heparin monitoring. Use the Anti-Xa level for heparin monitoring (HEP UFH) or LMWH monitoring (HEP LMW). A PTT less than 37 seconds generally indicates adequate hemostasis. Blood 05/13/2023 10:1 5 AM EDT 05/13/2023 10:46 AM EDT Narrative Resulting Agency Comment Spec In Lab Alirio Hudson MD HEMATOLOGY ORDERABL ES Performing Organization Address [facility] de Phone Number [facility] [place] [address] * (ABNORMAL) Prothrombin Time (05/13/2023 10:15 AM EDT) Prothrombin Time 14.6(H) 9.4 - 12.5 sec [facility] International Normalization Ratio 1.3 [facility] Comment: An INR <2.0 indicates adequate [...] HEMATOLOGY ORDERABL ES Performing Organization Address [facility] de Phone Number [facility] [place] [address] * EKG 12 Lead (05/13/2023 9:22 AM EDT) Ventricular rate 92 BPM MUSE SYSTEM Atrial Rate 92 BPM MUSE SYSTEM P-R Interval 140 ms MUSE SYSTEM QRS Duration 104 ms MUSE SYSTEM Q-T Interval 384 ms MUSE SYSTEM QTC Calculated (Bezet) 474 ms MUSE SYSTEM Calculated P [place] 33 degrees MUSE SYSTEM Calculated R [place] 41 degrees MUSE SYSTEM Calculated T [place] -35 degrees MUSE SYSTEM INTERPRETATION Sinus rhythm with frequent Premature ventricular complexes Septal infarct , age undetermined ST & T wave abnormality, consider lateral ischemia Abnormal ECG When compared with ECG of 12-MAY-2023 10:10, Premature ventricular complexes are now Present I personally reviewed the tracing and edited the fellows interpretation Confirmed by fellow MD Anitha, Carissa ([id number]) on 05/13/2023 3:25:30 PM Confirmed by Maxx Best ([id number]) on 05/13/2023 8:30:56 PM MUSE SYSTEM 05/13/2023 9:22 AM EDT 05/13/2023 8:30 PM EDT Alirio Hudson MD ECG ORDERABLES MUSE SYSTEM * (ABNORMAL) Differential, Automated (05/13/2023 1:15 AM EDT) Neutrophil % 88.1 % [facility] Neutrophil Absolute 7.62(H) 1.70 - 6.10 x10(3)/mc L [facility] Lymph % 3.1 % [facility] Lymphocytes Abs 0.3(L) 0.9 - 3.2 x10(3)/mc L [facility] Monocyte % 7.9 % [facility] Monocyte Abs 0.7 0.3 - 0.9 x10(3)/mc L [facility] Eos % 0.0 % [facility] Eosinophils Abs 0.0 0.0 - 0.4 x10(3)/mc L [facility] Basophil % 0.1 % [facility] Baso Absolute 0.0 0.0 - 0.1 x10(3)/mc L [facility] Immature Gran % 0.80 % [facility] Comment: Immature granulocytes(IG's)percentage and absolute count will include metamyelocytes, myelocytes, and promyelocytes. Blood smears from CBCs yielding IG's will be scanned manually for concordance. If this scan disagrees with the automated IG or if promyelocytes are noted, a manual differential will be performed. Immature Gran Absolute 0.07(H) 0.00 - 0.04 x10(3)/mc L [facility] Blood 05/13/2023 1:15 AM EDT 05/13/2023 1:29 AM EDT Narrative Resulting Agency Comment Spec In Lab Lorri TOBAR HEMATOLOGY ORDERABLE S [facility] [place] [address] * (ABNORMAL) Hemogram (05/13/2023 1:15 AM EDT) White Blood Cell 8.6 4.0 - 9.5 x10(3)/mc L [facility] Red Blood Cell 2.37(L) 4.00 - 5.21 x10(6)/mc L [facility] Hemoglobin 7.8(L) 11.7 - 15.5 g/dL [facility] Hematocrit 22.2(L) 35.7 - 45.8 % [facility] Mean Cell Volume 93.7 82.6 - 94.4 fL [facility] Mean Cell Hemoglobin 32.9(H) 27.1 - 32.0 pg [facility] Mean Cell Hemoglobin Concentration 35.1(H) 31.7 - 35.0 g/dL [facility] Platelet 130(L) 145 - 357 x10(3)/mc L [facility] RDW Standard Deviation 41.7 37.0 - 46.0 fL [facility] RDW coefficient of variation 12.5 11.5 - 14.1 % [facility] Mean Platelet Volume 10.2 7.6 - 12.9 fL [facility] NRBC% auto 0.5 % [facility] NRBC Absolute 0.040(H) 0.000 - 0.000 x10(3)/ L [facility] Blood 05/13/2023 1:15 AM EDT 05/13/2023 1:29 AM EDT Narrative Resulting Agency Comment Spec In Lab Lorri TOBAR HEMATOLOGY ORDERABLE S [facility] [place] [address] * (ABNORMAL) Hepatic Function Panel (05/13/2023 1:15 AM EDT) Protein, Total 5.5(L) 6.1 - 8.0 g/dL [facility] Albumin 3.0(L) 3.2 - 5.2 g/dL [facility] Aspartate Aminotransferase 792(H) 0 - 30 unit/L [facility] Alanine Aminotransferase 903(H) 0 - 30 unit/L [facility] Alkaline Phosphatase 85 35 - 105 unit/L [facility] Bilirubin, Total 0.5 0.2 - 1.3 mg/dL [facility] Bilirubin, Direct 0.3 0.0 - 0.3 mg/dL [facility] Blood 05/13/2023 1:15 AM EDT 05/13/2023 1:29 AM EDT Narrative Resulting Agency Comment Spec In Lab Alirio Hudson MD CHEMISTRY ORDERABLE S [facility] [place] [address] * (ABNORMAL) Basic Metabolic Panel (non-fasting) (05/13/2023 1:15 AM EDT) Glucose 107 65 - 199 mg/dL [facility] Comment:Diabetes: >=200 mg/d L plus symptoms Blood Urea Nitrogen 82(H) 8 - 18 mg/dL [facility] Creatinine 3.15(H) 0.70 - 1.20 mg/dL [facility] Comment:result rechecked-NINAJ Sodium 132(L) 135 - 145 mmol/L [facility] Potassium 3.8 3.5 - 5.0 mmol/L [facility] Comment: Please note: ??Patients with WBC >100,000 may have falsely elevated Potassium levels. ??For accurate Potassium quantification in these patients send serum separator tube (gold top) for subsequent determinations. ??Contact the Clinical Chemistry Laboratory if there are any questions. Chloride 95(L) 98 - 107 mmol/L [facility] Carbon Dioxide 20(L) 22 - 31 mmol/L [facility] Anion Gap 17(H) 5 - 15 mmol/L [facility] Calcium 8.3(L) 8.5 - 10.5 mg/dL [facility] Est Glomerular Filtration Rate 16(L) >=60 mL/min/1. 73 m?? [facility] Comment: This patient's estimated GFR was [...] Lab Alirio Hudson MD CHEMISTRY ORDERABLE S [facility] [place] [address] * (ABNORMAL) BLOOD GAS 2 ARTERIAL (05/12/2023 3:57 PM EDT) pH, Arterial 7.39 7.35 - 7.45 [facility] PCO2, Arterial 33(L) 35 - 45 mmHg [facility] PO2, Arterial 101 85 - 104 mmHg [facility] Bicarbonate, Arterial 19.5(L) 20.0 - 26.0 mmol/L [facility] Base Excess, Arterial -5.5(L) -3.0 - 3.0 mmol/L [facility] Hgb Blood Gas 9.8(L) 11.7 - 15.5 g/dL [facility] Oxyhemoglobin, Arterial 95.2 94.0 - 97.0 % [facility] Carboxyhemoglob in, Arterial 0.2 % [facility] Comment: Nonsmokers: 0.5-1.5% COHB Smokers: Variable, but usually less than 10% Toxic: 20-30% COHB Lethal: Greater than 60% COHB Methemoglobin, Arterial 0.8 <=1.5 % [facility] Na Whole Blood 129(L) 135 - 145 mmol/L [facility] K Whole Blood 3.8 3.5 - 5.0 mmol/L [facility] Comment: Please note: Patients with WBC >100,000 may have falsely elevated Potassium levels. Contact the Clinical Chemistry Laboratory if there are any questions. ICa Whole Blood 1.05(L) 1.15 - 1.33 mmol/L [facility] Comment: Note: ??Total bilirubin higher than 20 mg/dL may lead to falsely low ionized calcium. CL Whole Blood 96(L) 98 - 107 mmol/L [facility] Gluc Whole Bld 178 65 - 199 mg/dL [facility] Comment:Diabetes: >=200 mg/d L plus symptoms. Lactate WB 1.5 0.5 - 2.2 mmol/L [facility] FIO2 Art 40 % [facility] PF Ratio Art 252 [facility] Blood 05/12/2023 3:57 PM EDT 05/12/2023 3:57 PM EDT Alirio Hudson MD POINT OF CARE TEST ORDERABLES Performing Organization Address [facility] Co de Phone Number [facility] [place] [place] [address] * (ABNORMAL) Coox2 (05/12/2023 2:25 PM EDT) pO2, Coox 37 mmHg [facility] Hgb Blood Gas 9.5(L) 11.7 - 15.5 g/dL [facility] Oxyhemoglobin, Coox 59.9 % [facility] Carboxyhemoglo bin, Coox 0.3 % [facility] Comment: Nonsmokers: 0.5-1.5% COHB Smokers: Variable, but usually less than 10% Toxic: 20-30% COHB Lethal: Greater than 60% COHB Methemoglobin, Coox 0.7 <=1.5 % [facility] Source Coox Mixed Venous [facility] Blood 05/12/2023 2:25 PM EDT 05/12/2023 2:25 PM EDT Alirio Hudson MD POINT OF CARE TEST ORDERABLES Performing Organization Address [facility] Co de Phone Number [facility] [place] [address] * (ABNORMAL) BLOOD GAS 2 ARTERIAL (05/12/2023 2:23 PM EDT) pH, Arterial 7.37 7.35 - 7.45 [facility] PCO2, Arterial 36 35 - 45 mmHg [facility] PO2, Arterial 102 85 - 104 mmHg [facility] Bicarbonate, Arterial 20.4 20.0 - 26.0 mmol/L [facility] Base Excess, Arterial -4.8(L) -3.0 - 3.0 mmol/L [facility] Hgb Blood Gas 12.7 11.7 - 15.5 g/dL [facility] Oxyhemoglobin, Arterial 95.4 94.0 - 97.0 % [facility] Carboxyhemoglob in, Arterial 0.3 % [facility] Comment: Nonsmokers: 0.5-1.5% COHB Smokers: Variable, but usually less than 10% Toxic: 20-30% COHB Lethal: Greater than 60% COHB Methemoglobin, Arterial 0.7 <=1.5 % [facility] Na Whole Blood 129(L) 135 - 145 mmol/L [facility] K Whole Blood 3.7 3.5 - 5.0 mmol/L [facility] Comment: Please note: Patients with WBC >100,000 may have falsely elevated Potassium levels. Contact the Clinical Chemistry Laboratory if there are any questions. ICa Whole Blood 1.05(L) 1.15 - 1.33 mmol/L [facility] Comment: Note: ??Total bilirubin higher than 20 mg/dL may lead to falsely low ionized calcium. CL Whole Blood 95(L) 98 - 107 mmol/L [facility] Gluc Whole Bld 168 65 - 199 mg/dL [facility] Comment:Diabetes: >=200 mg/d L plus symptoms. Lactate WB 1.8 0.5 - 2.2 mmol/L [facility] FIO2 Art 40 % [facility] PF Ratio Art 255 [facility] Blood 05/12/2023 2:23 PM EDT 05/12/2023 2:23 PM EDT Alirio Hudson MD POINT OF CARE TEST ORDERABLES [facility] [place] [address] * (ABNORMAL) Troponin (05/12/2023 2:05 PM EDT) Troponin-T, High Sensitivity 1,022(H) <=14 ng/L [facility] Comment: This patient's troponin T concentration [...] can be found in the [facility] Test Catalog Troponin - [facility] Test Catalog Reference: Fourth [place] Definition of Myocardial Infarction. Journal of the [employer] 2018;72:5452-2204 Blood 05/12/2023 2:05 PM EDT 05/12/2023 2:14 PM EDT Narrative Resulting Agency Comment Spec In Lab Alirio Hudson MD CHEMISTRY ORDERABLE S [facility] [place] [address] * (ABNORMAL) Hemoglobin (05/12/2023 2:05 PM EDT) Hemoglobin 8.5(L) 11.7 - 15.5 g/dL [facility] Blood 05/12/2023 2:05 PM EDT 05/12/2023 2:14 PM EDT Narrative Resulting Agency Comment Spec In Lab Alirio Hudson MD HEMATOLOGY ORDERABL ES Performing Organization Address [facility] Co de Phone Number [facility] [place] [address] * Potassium (05/12/2023 2:05 PM EDT) Potassium 3.9 3.5 - 5.0 mmol/L [facility] Comment: Please note: ??Patients with WBC [...] CHEMISTRY ORDERABLE S Performing Organization Address [facility] Co de Phone Number [facility] [place] [address] * (ABNORMAL) BLOOD GAS 2 ARTERIAL (05/12/2023 11:05 AM EDT) pH, Arterial 7.34(L) 7.35 - 7.45 [facility] PCO2, Arterial 42 35 - 45 mmHg [facility] PO2, Arterial 73(L) 85 - 104 mmHg [facility] Bicarbonate, Arterial 22.1 20.0 - 26.0 mmol/L [facility] Base Excess, Arterial -3.6(L) -3.0 - 3.0 mmol/L [facility] Hgb Blood Gas 9.3(L) 11.7 - 15.5 g/dL [facility] Oxyhemoglobin, Arterial 89.3(L) 94.0 - 97.0 % [facility] Carboxyhemoglob in, Arterial 0.2 % [facility] Comment: Nonsmokers: 0.5-1.5% COHB Smokers: Variable, but usually less than 10% Toxic: 20-30% COHB Lethal: Greater than 60% COHB Methemoglobin, Arterial 0.9 <=1.5 % [facility] Na Whole Blood 131(L) 135 - 145 mmol/L [facility] K Whole Blood 3.8 3.5 - 5.0 mmol/L [facility] Comment: Please note: Patients with WBC >100,000 may have falsely elevated Potassium levels. Contact the Clinical Chemistry Laboratory if there are any questions. ICa Whole Blood 1.04(L) 1.15 - 1.33 mmol/L [facility] Comment: Note: ??Total bilirubin higher than 20 mg/dL may lead to falsely low ionized calcium. CL Whole Blood 96(L) 98 - 107 mmol/L [facility] Gluc Whole Bld 152 65 - 199 mg/dL [facility] Comment:Diabetes: >=200 mg/d L plus symptoms. Lactate WB 2.8(H) 0.5 - 2.2 mmol/L [facility] FIO2 Art 40 % [facility] PF Ratio Art 182 [facility] Blood 05/12/2023 11:0 5 AM EDT 05/12/2023 11:05 AM EDT Alirio Hudson MD POINT OF CARE TEST ORDERABLES Performing Organization Address City/State/[facility] Co de Phone Number [facility] [place] [address] * (ABNORMAL) BLOOD GAS 2 ARTERIAL (05/12/2023 10:14 AM EDT) pH, Arterial 7.18(Criti gabrielle) 7.35 - 7.45 [facility] Comment:Noted by instrument person. PCO2, Arterial 45 35 - 45 mmHg [facility] PO2, Arterial 186(H) 85 - 104 mmHg [facility] Bicarbonate, Arterial 16.2(L) 20.0 - 26.0 mmol/L [facility] Base Excess, Arterial -12.2(L) -3.0 - 3.0 mmol/L [facility] Hgb Blood Gas 10.0(L) 11.7 - 15.5 g/dL [facility] Oxyhemoglobin, Arterial 97.0 94.0 - 97.0 % [facility] Carboxyhemoglob in, Arterial 0.2 % [facility] Comment: Nonsmokers: 0.5-1.5% COHB Smokers: Variable, but usually less than 10% Toxic: 20-30% COHB Lethal: Greater than 60% COHB Methemoglobin, Arterial 0.9 <=1.5 % [facility] Na Whole Blood 129(L) 135 - 145 mmol/L [facility] K Whole Blood 3.6 3.5 - 5.0 mmol/L [facility] Comment: Please note: Patients with WBC >100,000 may have falsely elevated Potassium levels. Contact the Clinical Chemistry Laboratory if there are any questions. ICa Whole Blood 1.10(L) 1.15 - 1.33 mmol/L [facility] Comment: Note: ??Total bilirubin higher than 20 mg/dL may lead to falsely low ionized calcium. CL Whole Blood 97(L) 98 - 107 mmol/L [facility] Gluc Whole Bld 161 65 - 199 mg/dL [facility] Comment:Diabetes: >=200 mg/d L plus symptoms. Lactate WB 3.3(H) 0.5 - 2.2 mmol/L [facility] FIO2 Art 100 % [facility] PF Ratio Art 186 [facility] Blood 05/12/2023 10:1 4 AM EDT 05/12/2023 10:14 AM EDT Alirio Hudson MD POINT OF CARE TEST ORDERABLES Performing Organization Address City/State/[facility] Co de Phone Number [facility] [place] [address] * EKG 12 Lead (05/12/2023 10:10 AM EDT) Ventricular rate 116 BPM MUSE SYSTEM Atrial Rate 116 BPM MUSE SYSTEM P-R Interval 158 ms MUSE SYSTEM QRS Duration 114 ms MUSE SYSTEM Q-T Interval 348 ms MUSE SYSTEM QTC Calculated (Bezet) 483 ms MUSE SYSTEM Calculated P [place] 37 degrees MUSE SYSTEM Calculated R [place] 31 degrees MUSE SYSTEM Calculated T [place] -138 degrees MUSE SYSTEM INTERPRETATION Sinus tachycardia [...] interpretation Confirmed by fellow MD Anuja, Jim ([id number]) on 05/12/2023 1:04:20 PM Confirmed by MD Mono, Eleni ([id number]) on 05/12/2023 9:28:34 PM MUSE SYSTEM 05/12/2023 [...] who have questions please contact the health manager care that requested your imaging first. ? Electronically signed by: Chyna Johnson MD, [facility] ??([phone]), at 05/12/2023 10:08 AM Narrative 05/12/2023 10:08 AM EDT EXAMINATION: XR CHEST ONE VIEW CLINICAL HISTORY: Post TAVR TECHNIQUE: 1 view of the chest COMPARISON: Chest radiograph from earlier today FINDINGS: Interval placement of endotracheal tube with tip terminating 2 cm above the shira. Interval placement of enteric tube projecting along the expected course of the esophagus and outside the mbswo-ii-mlps. Interval retraction of right IJ approach pulmonary [...] expected course ofthe esophagus and outside the vaimu-fc-jrbm. Interval retraction of right IJ approach pulmonary [...] patients who have questions please contactthe health manager care that requested your imaging first. Electronically signed by: Chyna Johnson MD, [facility]([phone]), at 05/12/2023 10:08 AM Alirio Hudson MD [...] 1955 ? Height: 154 cm ? Account: [id number] Age: 67 yrs ? Weight: 75 kg Gender: Female ?BSA: 1.7 m2 Ordering Physician: RADHA HOLLINS Referring Physician: RADHA HOLLINS Performed By: Dilma Bee RDCS Reason For Study: Guidance for TAVR procedure Exam Location: [facility]. Interpretation Summary PRE TAVR: There is [...] mL/m2. POST TAVR: Normal function of the diddg-xt-qvpau prosthesis. See below for hemodynamic parameters. Slight improvement in left and right ventricular systolic function. LVEF now 20-25%. No pericardial effusion. See report for additional findings. Procedure Limited - 64333. Doppler - 93880. Color Doppler - 76294. Left Ventricle Left ventricle is of normal [...] Date: 307:33 AMBP: 96/63 mmHg Patient Location: [address] : 1955 Height: 154 cm Account: [id number] Age: 67 yrs Weight: 75 kg Gender: Female BSA: 1.7 m2 Ordering Physician: RADHA HOLLINS Referring Physician: RADHA HOLLINS Performed By: Dilma Bee RDCS Reason For Study: Guidance for TAVR procedure Exam Location: [facility]. Interpretation Summary PRE TAVR: There is [...] 28mL/m2. POST TAVR: Normal function of the maamh-ba-bqepe prosthesis. See belowfor hemodynamic parameters. Slight improvement in left and right ventricularsystolic function. LVEF now 20-25%. No pericardial effusion. See report for additional findings. Procedure Limited - 75480. Doppler - 58667. Color Doppler - 93935. Left Ventricle Left ventricle is of normal [...] Other Narrative 05/12/2023 2:37 PM EDT ?[facility] ? Cardiac Catheterization/Intervention Report ? Patient Name: Kirstie, Purnima M. ? Procedure Date: 05/12/2023 ? A #: [id number] ? Primary Physician: Antelmo Sharma ? Case #: [id number] ? File Name: [id number] ? Catheterization Order Number: [id number] ? [facility] ? Final Report [place], [place] ? Patient Name: ? Purnima M. Kirstie ? ID#: ?[id number] ? : ?1955 ? Procedure Date: ? May 12, 2023 ? Case #: ? [id number] ? Room: ? 6 ? Case Physicians: ?Antelmo Sharma M.D. ?Start: ?08:03 ?Alirio Hudson M.D. ?Admission: ??05/08/2023 ?Lynda Mcgowan M.D. ? Discharge: ??05/22/2023 ?Fellow: ? Kristied Bhavna Tejeda. ? Referring Physician: ??Mario Alberto Chin M.D. ? 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 The [facility] clinical ?frailty scale is 4: Vulnerable. [...] guide. ??A premounted 4.00 x 30 mm [place] (MINNA) was ? deployed with a maximum [...] calculated STS risk score was 30.1%. A jxgrc-ep-lnfyn ?procedure was performed on the pre-existing bioprosthetic stented ?prosthesis. The priority of the cmkek-hi-bvpez procedure was Elective. ?The procedure was performed [...] Lai 3 Ultra RESILIA 23 mm THV (s/c=[id number]) transcatheter ?valve was inserted using standard technique. [...] to nor was it given in the ?slab miller operator. ?Recommended anti-platelet/anti-thrombotic regimen: ?Continue aspirin 81 mg daily for indefinitely. ?These recommendations are made at the time of the intervention. Patient ?and provider preferences or a changing clinical situation may require ?modification of this regimen. Consult [facility] for ?questions. ? Conclusions: ?* [...] regimen. ? Comments: ?Successful right transfemoral TAVR Sqtwu-tz-Hwwuv with a 23 mm Lai 3 ?THV. 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 Dr. Alirio Hudson M.D. ?performed the left heart catheterization, access site angiography, ?temporary pacemaker in slab miller operator, vascular closure device, transthoracic ?echo , TAVR and CPR during cath. Dr. Lynda Mcgowan M.D. performed the ABG, ?anesthesia and intubation-non cath physician. ? Antelmo Sharma M.D. ? Electronically Signed by: Antelmo Sharma M.D. ? Report Finalized: 05/12/2023 ??14:31 ? Report Last Ammended: 07/01/2023 ??11:30 ? Procedure Note Antelmo Sharma MD - 07/01/2023 [facility] Cardiac Catheterization/Intervention Report Patient Name: Purnima Thacker Procedure Date: 05/12/2023 A #: [id number] Primary Physician: Antelmo Sharma Case #: [id number] File Name: [id number] Catheterization Order Number: [id number] [facility] FinalReport [place], [place] Patient Name: Purnima Thacker ID#:[id number] :1955 Procedure Date: May 12, 2023 Case #: [id number] Room: 6 Case Physicians: Antelmo Sharma M.D. Start: 08:03 Alirio Hudson M.D. Admission:05/08/2023 Lynda Mcgowan M.D. Discharge:05/22/2023 Fellow: Rebekah Tejeda M.D. Referring Physician: Mario Alberto Chin M.D. 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 A ajdmn-yp-bsfit procedure was performed on the pre-existing bioprosthetic stented prosthesis. The priority of the wways-yr-xgleb procedure wasElective. The procedure was performed under Moderate sedation performed byLynda Mcgowan M.D. (see anesthesia report for additional details). Alirio Hudson M.D. participated in the case (see Cardiac Surgery reportfor additional details). The TAVR sheath was a 14 Fr Corona eSheath Introducer and theaccess site was femoral. Rapid ventricular pacing was performed. An Corona Lai 3 Ultra RESILIA 23 mm THV (s/m=[id number])transcatheter valve was inserted using standard technique. The [...] prior to nor was it given inthe slab miller operator. Recommended anti-platelet/anti-thrombotic regimen: Continue aspirin 81 mg daily for indefinitely. These recommendations are made at the time of the intervention.Patient and provider preferences or a changing clinical situation mayrequire modification of this regimen. Consult [facility]iology[facility] questions. Conclusions: * Nonobstructive disease [...] this regimen. Comments: Successful right transfemoral TAVR Qkirq-gj-Kwkhw with a 23 mmSapien 3 THV. We [...] insertion-coronary, access site angiography, temporary pacemaker in slab miller operator, intubation-non cath physician,vascular closure device, transthoracic echo and TAVR. Dr. Alirio Hudson M.D. performed the left heart catheterization, access site angiography, temporary pacemaker in slab miller operator, vascular closure device,transthoracic echo , TAVR and [...] pH, POC 7.20(Crit ical) 7.35 - 7.45 [facility] Comment:Critical value OK, C C Lab. pCO2, POC 42 35 - 45 mmHg [facility] pO2, POC 260(H) 85 - 104 mmHg [facility] Base Excess, POC -11.0(L) -3.0 - 3.0 mmol/L [facility] Bicarbonate, POC 16.7(L) 20.0 - 26.0 mmol/L [facility] Sodium, POC 129(L) 135 - 145 mmol/L [facility] POC Potassium 3.8 3.5 - 5.0 mmol/L [facility] Ionized Calcium, POC 1.12(L) 1.15 - 1.33 mmol/L [facility] POC Hematocrit 23.0(L) 34.0 - 45.0 % [facility] POC Calc Hgb 7.8(L) 11.2 - 15.7 g/dL [facility] Comment:The calculation of h emoglobin from hematocrit assumes a normal MCHC. POC Bgas Loc CC Lab [facility] Blood 05/12/2023 8:50 AM EDT 05/13/2023 12:00 PM EDT Alirio Hudson MD CHEMISTRY ORDERABLE S [facility] [place] [address] * (ABNORMAL) Point of Care Blood Gas Historical (05/12/2023 8:10 AM EDT) pH, POC 7.27(Crit ical) 7.35 - 7.45 [facility] Comment:Critical value OK, C C Lab. pCO2, POC 37 35 - 45 mmHg [facility] pO2, POC 29(Critic al) 85 - 104 mmHg [facility] Comment:Critical value OK, C C Lab. Base Excess, POC -10.0(L) -3.0 - 3.0 mmol/L [facility] Bicarbonate, POC 16.7(L) 20.0 - 26.0 mmol/L [facility] Sodium, POC 123(L) 135 - 145 mmol/L [facility] POC Potassium 4.0 3.5 - 5.0 mmol/L [facility] Ionized Calcium, POC 1.12(L) 1.15 - 1.33 mmol/L [facility] POC Hematocrit 27.0(L) 34.0 - 45.0 % [facility] POC Calc Hgb 9.2(L) 11.2 - 15.7 g/dL [facility] Comment:The calculation of h emoglobin from hematocrit assumes a normal MCHC. POC Bgas Loc CC Lab [facility] Blood 05/12/2023 8:10 AM EDT 05/13/2023 12:00 PM EDT Alirio Hudson MD CHEMISTRY ORDERABLE S Performing Organization Address City/[facility]/ZIP Co de Phone Number [facility] [place] [address] * (ABNORMAL) Lactate, whole blood, send to lab [place] (05/12/2023 7:00 AM EDT) Lactate WB 2.4(H) 0.5 - 2.2 mmol/L [facility] Blood 05/12/2023 7:00 AM EDT 05/12/2023 7:09 AM EDT Narrative Resulting Agency Comment Spec In Lab Radha Hollins MD CHEMISTRY ORDERABL ES Performing Organization Address [facility] Co de Phone Number [facility] [place] [address] * (ABNORMAL) Comprehensive metabolic panel (non-fasting) (05/12/2023 6:00 AM EDT) Glucose 167 65 - 199 mg/dL [facility] Comment:Diabetes: >=200 mg/d L plus symptoms Blood Urea Nitrogen 67(H) 8 - 18 mg/dL [facility] Creatinine 2.01(H) 0.70 - 1.20 mg/dL [facility] Sodium 131(L) 135 - 145 mmol/L [facility] Potassium 4.3 3.5 - 5.0 mmol/L [facility] Comment: Please note: ??Patients with WBC >100,000 may have falsely elevated Potassium levels. ??For accurate Potassium quantification in these patients send serum separator tube (gold top) for subsequent determinations. ??Contact the Clinical Chemistry Laboratory if there are any questions. Chloride 97(L) 98 - 107 mmol/L [facility] Carbon Dioxide 14(L) 22 - 31 mmol/L [facility] Anion Gap 20(H) 5 - 15 mmol/L [facility] Calcium 8.6 8.5 - 10.5 mg/dL [facility] Protein, Total 6.3 6.1 - 8.0 g/dL [facility] Albumin 3.5 3.2 - 5.2 g/dL [facility] Aspartate Aminotransferase 1,435(H) 0 - 30 unit/L [facility] Alanine Aminotransferase 1,174(H) 0 - 30 unit/L [facility] Alkaline Phosphatase 100 35 - 105 unit/L [facility] Bilirubin, Total 0.9 0.2 - 1.3 mg/dL [facility] Est Glomerular Filtration Rate 27(L) >=60 mL/min/1. 73 m?? [facility] Comment: This patient's estimated GFR was [...] Lab Radha Hollins MD CHEMISTRY ORDERABL ES [facility] [place] [address] * (ABNORMAL) Coox2 (05/12/2023 5:08 AM EDT) pO2, Coox 24 mmHg [facility] Hgb Blood Gas 10.4(L) 11.7 - 15.5 g/dL [facility] Oxyhemoglobin, Coox 30.7 % [facility] Carboxyhemoglo bin, Coox 0.3 % [facility] Comment: Nonsmokers: 0.5-1.5% COHB Smokers: Variable, but usually less than 10% Toxic: 20-30% COHB Lethal: Greater than 60% COHB Methemoglobin, Coox 0.8 <=1.5 % [facility] Source Coox Mixed Venous [facility] Blood 05/12/2023 5:08 AM EDT 05/12/2023 5:08 AM EDT Radha Hollins MD POINT OF CARE TEST ORDERABLES Performing Organization Address City/[facility] Co de Phone Number [facility] [place] [address] * (ABNORMAL) Coox2 (05/12/2023 3:21 AM EDT) pO2, Coox 25 mmHg [facility] Hgb Blood Gas 10.8(L) 11.7 - 15.5 g/dL [facility] Oxyhemoglobin, Coox 32.7 % [facility] Carboxyhemoglo bin, Coox 0.3 % [facility] Comment: Nonsmokers: 0.5-1.5% COHB Smokers: Variable, but usually less than 10% Toxic: 20-30% COHB Lethal: Greater than 60% COHB Methemoglobin, Coox 0.7 <=1.5 % [facility] Source Coox Mixed Venous [facility] Blood 05/12/2023 3:21 AM EDT 05/12/2023 3:21 AM EDT Radha Hollins MD POINT OF CARE TEST ORDERABLES Performing Organization Address [facility] Co de Phone Number [facility] [place] [address] * (ABNORMAL) BLOOD GAS 2 ARTERIAL (05/12/2023 3:18 AM EDT) pH, Arterial 7.34(L) 7.35 - 7.45 [facility] PCO2, Arterial 30(L) 35 - 45 mmHg [facility] PO2, Arterial 72(L) 85 - 104 mmHg [facility] [facility] Bicarbonate, Arterial 16.0(L) 20.0 - 26.0 mmol/L [facility] Base Excess, Arterial -9.8(L) -3.0 - 3.0 mmol/L [facility] Hgb Blood Gas 11.0(L) 11.7 - 15.5 g/dL [facility] Oxyhemoglobin, Arterial 89.8(L) 94.0 - 97.0 % [facility] Carboxyhemoglob in, Arterial 0.3 % [facility] Comment: Nonsmokers: 0.5-1.5% COHB Smokers: Variable, but usually less than 10% Toxic: 20-30% COHB Lethal: Greater than 60% COHB Methemoglobin, Arterial 0.7 <=1.5 % [facility] Na Whole Blood 131(L) 135 - 145 mmol/L [facility] K Whole Blood 4.2 3.5 - 5.0 mmol/L [facility] Comment: Please note: Patients with WBC >100,000 may have falsely elevated Potassium levels. Contact the Clinical Chemistry Laboratory if there are any questions. ICa Whole Blood 1.12(L) 1.15 - 1.33 mmol/L [facility] Comment: Note: ??Total bilirubin higher than 20 mg/dL may lead to falsely low ionized calcium. CL Whole Blood 100 98 - 107 mmol/L [facility] Gluc Whole Bld 160 65 - 199 mg/dL [facility] Comment:Diabetes: >=200 mg/d L plus symptoms. Lactate WB 2.7(H) 0.5 - 2.2 mmol/L [facility] Flow Art 5.0 LPM [facility] Blood 05/12/2023 3:18 AM EDT 05/12/2023 3:18 AM EDT Radha Hollins MD POINT OF CARE TEST ORDERABLES [facility] [place] [address] * (ABNORMAL) Coox2 (05/12/2023 1:14 AM EDT) pO2, Coox 28 mmHg [facility] Hgb Blood Gas 10.9(L) 11.7 - 15.5 g/dL [facility] Oxyhemoglobin, Coox 37.3 % [facility] Carboxyhemoglo bin, Coox 0.3 % [facility] Comment: Nonsmokers: 0.5-1.5% COHB Smokers: Variable, but usually less than 10% Toxic: 20-30% COHB Lethal: Greater than 60% COHB Methemoglobin, Coox 0.5 <=1.5 % [facility] Source Coox Mixed Venous [facility] Blood 05/12/2023 1:14 AM EDT 05/12/2023 1:14 AM EDT Radha Hollins MD POINT OF CARE TEST ORDERABLES [facility] [place] [place] [address] * (ABNORMAL) BLOOD GAS 2 ARTERIAL (05/12/2023 1:06 AM EDT) pH, Arterial 7.34(L) 7.35 - 7.45 [facility] PCO2, Arterial 30(L) 35 - 45 mmHg [facility] PO2, Arterial 81(L) 85 - 104 mmHg [facility] Bicarbonate, Arterial 15.7(L) 20.0 - 26.0 mmol/L [facility] Base Excess, Arterial -10.1(L) -3.0 - 3.0 mmol/L [facility] Hgb Blood Gas 11.0(L) 11.7 - 15.5 g/dL [facility] Oxyhemoglobin, Arterial 92.3(L) 94.0 - 97.0 % [facility] Carboxyhemoglob in, Arterial 0.2 % [facility] Comment: Nonsmokers: 0.5-1.5% COHB Smokers: Variable, but usually less than 10% Toxic: 20-30% COHB Lethal: Greater than 60% COHB Methemoglobin, Arterial 0.6 <=1.5 % [facility] Na Whole Blood 131(L) 135 - 145 mmol/L [facility] K Whole Blood 4.2 3.5 - 5.0 mmol/L [facility] Comment: Please note: Patients with WBC >100,000 may have falsely elevated Potassium levels. Contact the Clinical Chemistry Laboratory if there are any questions. ICa Whole Blood 1.13(L) 1.15 - 1.33 mmol/L [facility] Comment: Note: ??Total bilirubin higher than 20 mg/dL may lead to falsely low ionized calcium. CL Whole Blood 99 98 - 107 mmol/L [facility] Gluc Whole Bld 132 65 - 199 mg/dL [facility] Comment:Diabetes: >=200 mg/d L plus symptoms. Lactate WB 2.7(H) 0.5 - 2.2 mmol/L [facility] Flow Art 5.0 LPM [facility] Blood 05/12/2023 1:06 AM EDT 05/12/2023 1:06 AM EDT Radha Hollins MD POINT OF CARE TEST ORDERABLES [facility] [place] [place] [address] * (ABNORMAL) Differential, Automated (05/12/2023 1:05 AM EDT) Neutrophil % 83.3 % [facility] Neutrophil Absolute 7.49(H) 1.70 - 6.10 x10(3)/mc L [facility] Lymph % 7.1 % [facility] Lymphocytes Abs 0.6(L) 0.9 - 3.2 x10(3)/mc L [facility] Monocyte % 8.9 % [facility] Monocyte Abs 0.8 0.3 - 0.9 x10(3)/mc L [facility] Eos % 0.0 % [facility] Eosinophils Abs 0.0 0.0 - 0.4 x10(3)/mc L [facility] Basophil % 0.1 % [facility] Baso Absolute 0.0 0.0 - 0.1 x10(3)/mc L [facility] Immature Gran % 0.60 % [facility] Comment: Immature granulocytes(IG's)percentage and absolute count will include metamyelocytes, myelocytes, and promyelocytes. Blood smears from CBCs yielding IG's will be scanned manually for concordance. If this scan disagrees with the automated IG or if promyelocytes are noted, a manual differential will be performed. Immature Gran Absolute 0.05(H) 0.00 - 0.04 x10(3)/mc L [facility] Blood 05/12/2023 1:05 AM EDT 05/12/2023 1:15 AM EDT Narrative Resulting Agency Comment Spec In Lab Gianni Fletcher MD HEMATOLOGY ORDERABLE S [facility] [place] [place] [address] * (ABNORMAL) Hemogram (05/12/2023 1:05 AM EDT) White Blood Cell 9.0 4.0 - 9.5 x10(3)/mc L [facility] Red Blood Cell 3.01(L) 4.00 - 5.21 x10(6)/mc L [facility] Hemoglobin 9.8(L) 11.7 - 15.5 g/dL [facility] Hematocrit 28.7(L) 35.7 - 45.8 % [facility] Mean Cell Volume 95.3(H) 82.6 - 94.4 fL [facility] Mean Cell Hemoglobin 32.6(H) 27.1 - 32.0 pg [facility] Mean Cell Hemoglobin Concentration 34.1 31.7 - 35.0 g/dL [facility] Platelet 186 145 - 357 x10(3)/mc L [facility] RDW Standard Deviation 43.7 37.0 - 46.0 fL [facility] RDW coefficient of variation 12.7 11.5 - 14.1 % [facility] Mean Platelet Volume 10.3 7.6 - 12.9 fL [facility] NRBC% auto 0.0 % [facility] NRBC Absolute 0.000 0.000 - 0.000 x10(3)/mc L [facility] Blood 05/12/2023 1:05 AM EDT 05/12/2023 1:15 AM EDT Narrative Resulting Agency Comment Spec In Lab Gianni Fletcher MD HEMATOLOGY ORDERABLE S [facility] [place] [place] [address] * (ABNORMAL) Comprehensive metabolic panel (non-fasting) (05/12/2023 1:05 AM EDT) Glucose 141 65 - 199 mg/dL [facility] Comment:Diabetes: >=200 mg/d L plus symptoms Blood Urea Nitrogen 63(H) 8 - 18 mg/dL [facility] Creatinine 1.86(H) 0.70 - 1.20 mg/dL [facility] Sodium 131(L) 135 - 145 mmol/L [facility] Potassium 4.4 3.5 - 5.0 mmol/L [facility] Comment: Please note: ??Patients with WBC >100,000 may have falsely elevated Potassium levels. ??For accurate Potassium quantification in these patients send serum separator tube (gold top) for subsequent determinations. ??Contact the Clinical Chemistry Laboratory if there are any questions. Chloride 96(L) 98 - 107 mmol/L [facility] Carbon Dioxide 14(L) 22 - 31 mmol/L [facility] Anion Gap 21(H) 5 - 15 mmol/L [facility] Calcium 9.0 8.5 - 10.5 mg/dL [facility] Protein, Total 6.6 6.1 - 8.0 g/dL [facility] Albumin 3.9 3.2 - 5.2 g/dL [facility] Aspartate Aminotransferase 1,227(H) 0 - 30 unit/L [facility] Alanine Aminotransferase 1,097(H) 0 - 30 unit/L [facility] Alkaline Phosphatase 108(H) 35 - 105 unit/L [facility] Bilirubin, Total 1.0 0.2 - 1.3 mg/dL [facility] Est Glomerular Filtration Rate 29(L) >=60 mL/min/1. 73 m?? [facility] Comment: This patient's estimated GFR was [...] Lab Radha Hollins MD CHEMISTRY ORDERABL ES [facility] [place] [place] [address] * XR Chest One View (05/12/2023 1:00 [...] who have questions please contact the health manager care that requested your imaging first. ? Narrative [...] patients who have questions please contactthe health manager care that requested your imaging first. Radha Hollins MD IMG DX ORDERABLES * (ABNORMAL) Coox2 (05/12/2023 12:30 AM EDT) pO2, Coox 22 mmHg [facility] Hgb Blood Gas 10.9(L) 11.7 - 15.5 g/dL [facility] Oxyhemoglobin, Coox 25.1 % [facility] Carboxyhemoglo bin, Coox 0.3 % [facility] Comment: Nonsmokers: 0.5-1.5% COHB Smokers: Variable, but usually less than 10% Toxic: 20-30% COHB Lethal: Greater than 60% COHB Methemoglobin, Coox 1.4 <=1.5 % [facility] Source Coox Mixed Venous [facility] Blood 05/12/2023 12:3 0 AM EDT 05/12/2023 12:30 AM EDT Radha Hollins MD POINT OF CARE TEST ORDERABLES [facility] [address] [facility] [address] [place] [address] * XR Chest One View (05/11/2023 11:45 [...] who have questions please contact the health manager care that requested your imaging first. ? Narrative [...] patients who have questions please contactthe health manager care that requested your imaging first. Radha Hollins MD IMG DX ORDERABLES * (ABNORMAL) Lactate, whole blood, [place] [place] [place] (05/11/2023 7:40 PM EDT) Lactate WB 4.8(Critic al) 0.5 - 2.2 mmol/L [facility] Comment:Called by: [facility], Read back by: Magdalena Baires, Date/Time:05/11/23 19:54. Blood 05/11/2023 7:40 PM EDT 05/11/2023 7:49 PM EDT Narrative Resulting Agency Comment Spec In Lab Radha Hollins MD CHEMISTRY ORDERABL ES Performing Organization Address [facility]/ZIP Co de Phone Number [facility] [place] [place] [address] * Urine culture (05/11/2023 7:22 PM EDT) Pathologist [facility] Urine Culture 50,000-99,000 cfu/ml Normal mucosal herman Susceptibilit y testing not routinely performed for Coagulase Negative Staphylococcu s species and other Gram Positive organisms from urine. [facility] Clean Catch Urine 05/11/2023 7:22 PM EDT 05/11/2023 8:50 PM EDT Narrative Resulting Agency Comment Spec In Lab Brody Dale Eusebio OSBORN MICROBIOLOGY - GENE RAL ORDERABLES Performing Organization Address [facility] Co de Phone Number [facility] [place] [place] [address] * (ABNORMAL) Urinalysis Microscopic Exam (05/11/2023 7:22 PM EDT) Pathologist [facility] RBC, Urine 2 0 - 4 /HPF [facility] WBC, Urine >100(H) 0 - 5 /HPF [facility] Bacteria, Urine Occasional (A) None /HPF [facility] Squamous Epithelial Cells Raw Data, Urine 5(H) <=4 /HPF [facility] Hyaline Casts, Urine 3(H) 0 - 2 /LPF [facility] Clean Catch Urine 05/11/2023 7:22 PM EDT 05/11/2023 7:31 PM EDT Narrative Resulting Agency Comment Spec In Lab Brody Elvia Eusebio LEMAN URINE ORDERABLES Performing Organization Address [facility]/ZIP Co de Phone Number [facility] [place] [place] [address] * (ABNORMAL) Urinalysis with reflex Culture (05/11/2023 7:22 PM EDT) Glucose, Urine Dipstick Negative Negative mg/dL [facility] Protein, Urine Dipstick Trace(A) Negative mg/dL [facility] Bilirubin, Urine Dipstick Negative Negative mg/dL [facility] Comment: Clinical correlation required for positive Urine Bilirubin results as false positive may occur with some drugs and drug related products. If a false positive is suspected a serum total bilirubin should be considered if clinically indicated. Urobilinogen, Urine Dipstick Normal Normal mg/dL [facility] pH, Urn (dipstick) 5.0 5.0 - 8.0 [facility] Blood, Urine Dipstick Trace(A) Negative mg/dL [facility] Ketone, Urine Dipstick Negative Negative mg/dL [facility] Nitrite, Urine Dipstick Negative Negative [facility] Leukocytes, Urine Dipstick Moderate(A) Negative mcL [facility] Appearance, Urine Dipstick Cloudy(A) Clear [facility] Specific [place] Urine Automated >=1.030(A) 1.005 - 1.030 [facility] Color, Urine Dipstick Yellow Yellow [facility] Reflex to Culture Yes [facility] Clean Catch Urine 05/11/2023 7:22 PM EDT 05/11/2023 7:31 PM EDT Narrative Resulting Agency Comment Spec In Lab Brody Kaplan APRN URINE ORDERABLES Performing Organization Address [facility]/ZIP Co de Phone Number [facility] [place] [place] [address] * (ABNORMAL) pro-Brain Natriuretic Peptide (05/11/2023 7:11 PM EDT) NT-proBNP >35,000(H) <=124 pg/mL [facility] Blood 05/11/2023 7:11 PM EDT 05/11/2023 7:26 PM EDT Narrative Resulting Agency Comment Spec In Lab Radha Hollins MD CHEMISTRY ORDERABL ES Performing Organization Address City/[facility]/ZIP Co de Phone Number [facility] [place] [place] [address] * (ABNORMAL) Lactate, whole blood, [place] [place] [place] (05/11/2023 2:47 PM EDT) Lactate WB 2.9(H) 0.5 - 2.2 mmol/L [facility] Blood 05/11/2023 2:47 PM EDT 05/11/2023 2:53 PM EDT Narrative Resulting Agency Comment Spec In Lab Juan Luis Gonzalez MD CHEMISTRY ORDERABLES [facility] [address] * (ABNORMAL) CT Angiogram Abdomen & Pelvis [...] who have questions please contact the health manager care that requested your imaging first. ? Narrative [...] who have questions please contact the health manager care that requested your imaging first. ? Electronically signed by: Cullen Narayanan MD, [facility] ([phone]), at 05/11/2023 4:37 PM Narrative 05/11/2023 4:37 [...] 610 mm2 Circumference: 88 mm Calcification: Mild Nrtuedd-rk-[id number] height: Left: 6.2 mm Right: 5.8 mm THORACIC AORTA Description: Normal course and caliber. ??Mild diffuse atherosclerotic changes. No acute aortopathy noted. [employer] dimensions: Aortic root: 27.6 mm Max ascending aorta: 30.5 mm x 27.7 mm Suggested fluoroscopic angulation based on line extending through the nadirs of the three sinuses of Valsalva, set equidistant: ?? [place] ??9 degrees; cranial 7 degrees MITRAL: [...] 610 mm2 Circumference: 88 mm Calcification: Mild Hyytbmb-vj-rivhwyfw height: Left: 6.2 mm Right: 5.8 mm THORACIC AORTA Description: Normal course and caliber. Mild diffuse atheroscleroticchanges. No acute aortopathy noted. [employer] dimensions: Aortic root: 27.6 mm Max ascending aorta: 30.5 mm x 27.7 mm Suggested fluoroscopic angulation based on line extending through thenadirs of the three sinuses of Valsalva, set equidistant: [place] 9 degrees; cranial 7 degrees MITRAL: [...] patients who have questions please contactthe health manager care that requested your imaging first. Electronically signed by: Cullen Narayanan MD, [facility]([phone]), at 05/11/2023 4:37 PM Antelmo Sharma MD IMG CT ORDERABLES * (ABNORMAL) Lactate, whole blood, [place] lab [place] [place] [place] (05/11/2023 9:29 AM EDT) Lactate WB 3.1(H) 0.5 - 2.2 mmol/L [facility] Blood 05/11/2023 9:29 AM EDT 05/11/2023 9:38 AM EDT Narrative Resulting Agency Comment Spec In Lab Juan Luis Gonzalez MD CHEMISTRY ORDERABLES [facility] [place] [place] [address] * (ABNORMAL) Differential, Automated (05/11/2023 4:42 AM EDT) Neutrophil % 78.1 % [facility] Neutrophil Absolute 5.46 1.70 - 6.10 x10(3)/mc L [facility] Lymph % 10.6 % [facility] Lymphocytes Abs 0.7(L) 0.9 - 3.2 x10(3)/mc L [facility] Monocyte % 9.6 % [facility] Monocyte Abs 0.7 0.3 - 0.9 x10(3)/mc L [facility] Eos % 0.0 % [facility] Eosinophils Abs 0.0 0.0 - 0.4 x10(3)/mc L [facility] Basophil % 0.4 % [facility] Baso Absolute 0.0 0.0 - 0.1 x10(3)/mc L [facility] Immature Gran % 1.30 % [facility] Comment: Immature granulocytes(IG's)percentage and absolute count will include metamyelocytes, myelocytes, and promyelocytes. Blood smears from CBCs yielding IG's will be scanned manually for concordance. If this scan disagrees with the automated IG or if promyelocytes are noted, a manual differential will be performed. Immature Gran Absolute 0.09(H) 0.00 - 0.04 x10(3)/mc L [facility] Blood 05/11/2023 4:42 AM EDT 05/11/2023 4:49 AM EDT Narrative Resulting Agency Comment Spec In Lab Klaudia Reid MD HEMATOLOGY OR DERABLES Performing Organization Address City/[facility] Co de Phone Number [facility] [place] [address] * (ABNORMAL) Hemogram (05/11/2023 4:42 AM EDT) White Blood Cell 7.0 4.0 - 9.5 x10(3)/mc L [facility] Red Blood Cell 3.44(L) 4.00 - 5.21 x10(6)/[facility] Hemoglobin 11.1(L) 11.7 - 15.5 g/dL [facility] Hematocrit 32.7(L) 35.7 - 45.8 % [facility] Mean Cell Volume 95.1(H) 82.6 - 94.4 fL [facility] Mean Cell Hemoglobin 32.3(H) 27.1 - 32.0 pg [facility] Mean Cell Hemoglobin Concentration 33.9 31.7 - 35.0 g/dL [facility] Platelet 165 145 - 357 x10(3)/mc L [facility] RDW Standard Deviation 43.1 37.0 - 46.0 fL [facility] RDW coefficient of variation 12.7 11.5 - 14.1 % [facility] Mean Platelet Volume 10.1 7.6 - 12.9 fL [facility] NRBC% auto 0.0 % [facility] NRBC Absolute 0.000 0.000 - 0.000 x10(3)/ L [facility] Blood 05/11/2023 4:42 AM EDT 05/11/2023 4:49 AM EDT Narrative Resulting Agency Comment Spec In Lab Klaudia Reid MD HEMATOLOGY OR DERABLES Performing Organization Address [facility] Co de Phone Number [facility] [place] [place] [address] * Heparin (unfractionated) Level (05/11/2023 4:42 AM EDT) UF Heparin 0.46 IU/mL [facility] Comment: Heparin (anti-Xa) [...] ORDERAB LES Performing Organization Address [facility] Co de Phone Number [facility] [place] [place] [address] * (ABNORMAL) Comprehensive metabolic panel (non-fasting) (05/11/2023 4:42 AM EDT) Glucose 143 65 - 199 mg/dL [facility] Comment:Diabetes: >=200 mg/d L plus symptoms Blood Urea Nitrogen 42(H) 8 - 18 mg/dL [facility] Creatinine 1.24(H) 0.70 - 1.20 mg/dL [facility] Sodium 134(L) 135 - 145 mmol/L [facility] Potassium 4.6 3.5 - 5.0 mmol/L [facility] Comment: Please note: ??Patients with WBC >100,000 may have falsely elevated Potassium levels. ??For accurate Potassium quantification in these patients send serum separator tube (gold top) for subsequent determinations. ??Contact the Clinical Chemistry Laboratory if there are any questions. Chloride 99 98 - 107 mmol/L [facility] Carbon Dioxide 14(L) 22 - 31 mmol/L [facility] Anion Gap 21(H) 5 - 15 mmol/L [facility] Calcium 9.6 8.5 - 10.5 mg/dL [facility] Protein, Total 7.2 6.1 - 8.0 g/dL [facility] Albumin 3.7 3.2 - 5.2 g/dL [facility] Aspartate Aminotransferase 144(H) 0 - 30 unit/L [facility] Comment:result rechecked-ss[facility] Alanine Aminotransferase 130(H) 0 - 30 unit/L [facility] Comment:result [place]hecked[place] [place] Alkaline Phosphatase 72 35 - 105 unit/L [facility] Bilirubin, Total 0.8 0.2 - 1.3 mg/dL [facility] Est Glomerular Filtration Rate 48(L) >=60 mL/min/1. 73 m?? [facility] Comment: This patient's estimated GFR was [...] Lab Radha Hollins MD CHEMISTRY ORDERABL ES [facility] [place] [place] [address] * EKG 12 Lead (05/10/2023 1:16 PM EDT) Ventricular rate 118 BPM MUSE SYSTEM Atrial Rate 118 BPM MUSE SYSTEM P-R Interval 152 ms MUSE SYSTEM QRS Duration 104 ms MUSE SYSTEM Q-T Interval 316 ms MUSE SYSTEM QTC Calculated (Bezet) 442 ms MUSE SYSTEM Calculated P [place] 29 degrees MUSE SYSTEM Calculated R [place] 18 degrees MUSE SYSTEM Calculated T [place] -173 degrees MUSE SYSTEM INTERPRETATION Sinus tachycardia [...] Anterior leads Confirmed by MD Villareal Danette ([id number]) on 05/10/2023 8:47:46 PM MUSE SYSTEM 05/10/2023 1:16 PM EDT 05/10/2023 8:47 PM EDT Juan Luis Gonzalez MD ECG ORDERABLES MUSE SYSTEM * Lactate, [place] blood, [place] [place] [place] (05/10/2023 11:52 AM EDT) Lactate WB 1.8 0.5 - 2.2 mmol/L [facility] Blood 05/10/2023 11:5 2 AM EDT 05/10/2023 12:13 PM EDT Narrative Resulting Agency Comment Spec In Lab Juan Luis Gonzalez MD CHEMISTRY ORDERABLES [facility] [place] [address] * XR Chest One View (05/10/2023 11:16 [...] who have questions please contact the health manager care that requested your imaging first. ? Electronically signed by: ALIX RUVALCABA MD, [facility] ([phone]), at 05/10/2023 1:25 PM Narrative 05/10/2023 1:25 [...] patients who have questions please contactthe health manager care that requested your imaging first. Electronically signed by: ALIX RUVALCABA MD, [facility]([phone]), at 05/10/2023 1:25 PM Juan Luis Gonzalez MD IMG DX ORDERABLES * EKG 12 Lead (05/10/2023 7:59 AM EDT) [facility] Ventricular rate 115 BPM MUSE SYSTEM Atrial Rate 115 BPM MUSE SYSTEM P-R Interval 142 ms MUSE SYSTEM QRS Duration 102 ms MUSE SYSTEM Q-T Interval 322 ms MUSE SYSTEM QTC Calculated (Bezet) 445 ms MUSE SYSTEM Calculated P [place] 36 degrees MUSE SYSTEM Calculated R [place] 28 degrees MUSE SYSTEM Calculated T [place] -119 degrees MUSE SYSTEM INTERPRETATION Sinus tachycardia [...] (ABNORMAL) Differential, Automated (05/10/2023 2:28 AM EDT) [facility] Neutrophil % 77.1 % [facility] Neutrophil Absolute 4.01 1.70 - 6.10 x10(3)/mc L [facility] Lymph % 14.0 % [facility] Lymphocytes Abs 0.7(L) 0.9 - 3.2 x10(3)/mc L [facility] Monocyte % 7.7 % [facility] Monocyte Abs 0.4 0.3 - 0.9 x10(3)/mc L [facility] Eos % 0.4 % [facility] Eosinophils Abs 0.0 0.0 - 0.4 x10(3)/mc L [facility] Basophil % 0.4 % [facility] Baso Absolute 0.0 0.0 - 0.1 x10(3)/mc L [facility] Immature Gran % 0.40 % [facility] Comment: Immature granulocytes(IG's)percentage and absolute count will include metamyelocytes, myelocytes, and promyelocytes. Blood smears from CBCs yielding IG's will be scanned manually for concordance. If this scan disagrees with the automated IG or if promyelocytes are noted, a manual differential will be performed. Immature Gran Absolute 0.02 0.00 - 0.04 x10(3)/[facility] LABORATORY Blood 05/10/2023 2:28 AM EDT 05/10/2023 2:57 AM EDT Narrative Resulting Agency Comment Spec In Lab Klaudia Reid MD HEMATOLOGY OR DERABLES [facility] [place] [place] [address] * (ABNORMAL) Hemogram (05/10/2023 2:28 AM EDT) White Blood Cell 5.2 4.0 - 9.5 x10(3)/[facility] LABORATORY Red Blood Cell 3.11(L) 4.00 - 5.21 x10(6)/[facility] LABORATORY Hemoglobin 10.2(L) 11.7 - 15.5 g/dL [facility] Hematocrit 30.2(L) 35.7 - 45.8 % [facility] Mean Cell Volume 97.1(H) 82.6 - 94.4 fL [facility] Mean Cell Hemoglobin 32.8(H) 27.1 - 32.0 pg [facility] Mean Cell Hemoglobin Concentration 33.8 31.7 - 35.0 g/dL [facility] Platelet 151 145 - 357 x10(3)/[facility] LABORATORY RDW Standard Deviation 44.9 37.0 - 46.0 fL [facility] RDW coefficient of variation 12.8 11.5 - 14.1 % [facility] Mean Platelet Volume 9.8 7.6 - 12.9 fL [facility] NRBC% auto 0.0 % [facility] NRBC Absolute 0.000 0.000 - 0.000 x10(3)/[facility] LABORATORY Blood 05/10/2023 2:28 AM EDT 05/10/2023 2:57 AM EDT Narrative Resulting Agency Comment Spec In Lab Klaudia Reid MD HEMATOLOGY OR DERABLES [facility] [place] [place] [address] * (ABNORMAL) Comprehensive metabolic panel (non-fasting) (05/10/2023 2:28 AM EDT) Glucose 100 65 - 199 mg/dL [facility] Comment:Diabetes: >=200 mg/d L plus symptoms Blood Urea Nitrogen 30(H) 8 - 18 mg/dL [facility] Creatinine 0.90 0.70 - 1.20 mg/dL [facility] Sodium 134(L) 135 - 145 mmol/L [facility] Potassium 4.1 3.5 - 5.0 mmol/L [facility] Comment: Please note: ??Patients with WBC >100,000 may have falsely elevated Potassium levels. ??For accurate Potassium quantification in these patients send serum separator tube (gold top) for subsequent determinations. ??Contact the Clinical Chemistry Laboratory if there are any questions. Chloride 102 98 - 107 mmol/L [facility] Carbon Dioxide 20(L) 22 - 31 mmol/L [facility] Anion Gap 12 5 - 15 mmol/L [facility] Calcium 9.3 8.5 - 10.5 mg/dL [facility] Protein, Total 6.4 6.1 - 8.0 g/dL [facility] Albumin 3.7 3.2 - 5.2 g/dL [facility] Aspartate Aminotransferase 24 0 - 30 unit/L [facility] Alanine Aminotransferase 14 0 - 30 unit/L [facility] Alkaline Phosphatase 70 35 - 105 unit/L [facility] Bilirubin, Total 0.5 0.2 - 1.3 mg/dL [facility] Est Glomerular Filtration Rate 70 >=60 mL/min/1. 73 m?? [facility] Comment: This patient's estimated GFR was [...] ORDERABL ES Performing Organization Address [facility] [place] [address] * Heparin (unfractionated) Level (05/10/2023 2:28 AM EDT) UF Heparin 0.37 IU/mL [facility] Comment: Heparin (anti-Xa) [...] ORDERAB LES Performing Organization Address [facility]/ZIP Co de Phone Number [facility] [place] [address] * (ABNORMAL) Differential, Automated (05/09/2023 4:00 AM EDT) Neutrophil % 81.7 % [facility] Neutrophil Absolute 5.26 1.70 - 6.10 x10(3)/mc L [facility] Lymph % 10.7 % [facility] Lymphocytes Abs 0.7(L) 0.9 - 3.2 x10(3)/[facility] LABORATORY Monocyte % 6.5 % [facility] Monocyte Abs 0.4 0.3 - 0.9 x10(3)/[facility] LABORATORY Eos % 0.5 % [facility] Eosinophils Abs 0.0 0.0 - 0.4 x10(3)/[facility] LABORATORY Basophil % 0.3 % [facility] Baso Absolute 0.0 0.0 - 0.1 x10(3)/[facility] LABORATORY Immature Gran % 0.30 % [facility] Comment: Immature granulocytes(IG's)percentage and absolute count will include metamyelocytes, myelocytes, and promyelocytes. Blood smears from CBCs yielding IG's will be scanned manually for concordance. If this scan disagrees with the automated IG or if promyelocytes are noted, a manual differential will be performed. Immature Gran Absolute 0.02 0.00 - 0.04 x10(3)/ L [facility] Blood 05/09/2023 4:00 AM EDT 05/09/2023 4:19 AM EDT Narrative Resulting Agency Comment Spec In Lab Klaudia Reid MD HEMATOLOGY OR DERABLES [facility] [place] [address] * (ABNORMAL) Hemogram (05/09/2023 4:00 AM EDT) White Blood Cell 6.4 4.0 - 9.5 x10(3)/[facility] LABORATORY Red Blood Cell 3.15(L) 4.00 - 5.21 x10(6)/[facility] LABORATORY Hemoglobin 10.2(L) 11.7 - 15.5 g/dL [facility] Hematocrit 30.3(L) 35.7 - 45.8 % [facility] Mean Cell Volume 96.2(H) 82.6 - 94.4 fL [facility] Mean Cell Hemoglobin 32.4(H) 27.1 - 32.0 pg [facility] Mean Cell Hemoglobin Concentration 33.7 31.7 - 35.0 g/dL [facility] Platelet 151 145 - 357 x10(3)/mc L [facility] RDW Standard Deviation 44.7 37.0 - 46.0 fL [facility] RDW coefficient of variation 12.8 11.5 - 14.1 % [facility] Mean Platelet Volume 9.4 7.6 - 12.9 fL [facility] NRBC% auto 0.0 % [facility] NRBC Absolute 0.000 0.000 - 0.000 x10(3)/mc L [facility] Blood 05/09/2023 4:00 AM EDT 05/09/2023 4:19 AM EDT Narrative Resulting Agency Comment Spec In Lab Klaudia Reid MD HEMATOLOGY OR DERABLES Performing Organization Address City/State/[facility] Co de Phone Number [facility] [place] [address] * Heparin (unfractionated) Level (05/09/2023 4:00 AM EDT) UF Heparin 0.47 IU/mL [facility] Comment: Heparin (anti-Xa) levels should [...] Lab Radha Hollins MD HEMATOLOGY ORDERAB LES [facility] [place] [address] * (ABNORMAL) Comprehensive metabolic panel (non-fasting) (05/09/2023 4:00 AM EDT) Glucose 108 65 - 199 mg/dL [facility] Comment:Diabetes: >=200 mg/d L plus symptoms Blood Urea Nitrogen 31(H) 8 - 18 mg/dL [facility] Creatinine 1.03 0.70 - 1.20 mg/dL [facility] Sodium 137 135 - 145 mmol/L [facility] Potassium 4.4 3.5 - 5.0 mmol/L [facility] Comment: Please note: ??Patients with WBC >100,000 may have falsely elevated Potassium levels. ??For accurate Potassium quantification in these patients send serum separator tube (gold top) for subsequent determinations. ??Contact the Clinical Chemistry Laboratory if there are any questions. Chloride 102 98 - 107 mmol/L [facility] Carbon Dioxide 20(L) 22 - 31 mmol/L [facility] Anion Gap 15 5 - 15 mmol/L [facility] Calcium 9.3 8.5 - 10.5 mg/dL [facility] Protein, Total 6.6 6.1 - 8.0 g/dL [facility] Albumin 3.8 3.2 - 5.2 g/dL [facility] Aspartate Aminotransferase 32(H) 0 - 30 unit/L [facility] Alanine Aminotransferase 18 0 - 30 unit/L [facility] Alkaline Phosphatase 78 35 - 105 unit/L [facility] Bilirubin, Total 0.5 0.2 - 1.3 mg/dL [facility] Est Glomerular Filtration Rate 60 >=60 mL/min/1. 73 m?? [facility] Comment: This patient's estimated GFR was [...] ORDERABL ES Performing Organization Address [facility] Co de Phone Number [facility] [place] [address] * (ABNORMAL) pro-Brain Natriuretic Peptide (05/08/2023 4:00 PM EDT) NT-proBNP 25,503(H) <=124 pg/mL [facility] Blood Venous Draw / Unknown 05/08/2023 4:00 PM EDT 05/08/2023 4:25 PM EDT Narrative Resulting Agency Comment Spec In Lab Juan Luis Gonzalez MD CHEMISTRY ORDERABLES Performing Organization Address [facility] Co de Phone Number [facility] [place] [address] * Magnesium (05/08/2023 4:00 PM EDT) Magnesium 0.82 0.69 - 1.07 mmol/L [facility] Blood 05/08/2023 4:00 PM EDT 05/08/2023 4:06 PM EDT Narrative Resulting Agency Comment Spec In Lab Enrique Chua MD CHEMISTRY ORDERABLES Performing Organization Address [facility] Co de Phone Number [facility] [place] [place] [address] * Potassium (05/08/2023 4:00 PM EDT) Potassium 3.9 3.5 - 5.0 mmol/L [facility] Comment: Please note: ??Patients with WBC [...] ORDERABL ES Performing Organization Address [facility] Co de Phone Number [facility] [place] [place] [address] * Heparin (unfractionated) Level (05/08/2023 4:00 PM EDT) Pathologist [facility] UF Heparin 0.43 IU/mL [facility] Comment: Heparin (anti-Xa) [...] ORDERAB LES Performing Organization Address [facility] Co de Phone Number [facility] [place] [address] * EKG 12 Lead (05/08/2023 3:51 PM EDT) Ventricular rate 98 BPM MUSE SYSTEM Atrial Rate 98 BPM MUSE SYSTEM P-R Interval 150 ms MUSE SYSTEM QRS Duration 102 ms MUSE SYSTEM Q-T Interval 358 ms MUSE SYSTEM QTC Calculated (Bezet) 457 ms MUSE SYSTEM Calculated P [place] 38 degrees MUSE SYSTEM Calculated R [place] 48 degrees MUSE SYSTEM Calculated T [place] -112 degrees MUSE SYSTEM INTERPRETATION Sinus rhythm with frequent and consecutive Premature ventricular and fusion complexes Septal infarct , age undetermined ST & T wave abnormality, consider anterolateral ischemia Abnormal ECG When compared with ECG of 09-NOV-2022 11:17, T wave inversion now evident in Anterolateral leads Confirmed by MD Harshil, Enrique Bell ([id number]) on 05/10/2023 8:11:46 AM MUSE SYSTEM 05/08/2023 3:51 PM EDT 05/10/2023 8:11 AM EDT Radha Hollins MD ECG ORDERABLES MUSE SYSTEM * (ABNORMAL) Differential, Automated (05/08/2023 11:38 AM EDT) Neutrophil % 71.3 % [facility] Neutrophil Absolute 2.91 1.70 - 6.10 x10(3)/mc L [facility] Lymph % 19.1 % [facility] Lymphocytes Abs 0.8(L) 0.9 - 3.2 x10(3)/mc L [facility] Monocyte % 9.0 % [facility] Monocyte Abs 0.4 0.3 - 0.9 x10(3)/mc L [facility] Eos % 0.2 % [facility] Eosinophils Abs 0.0 0.0 - 0.4 x10(3)/mc L [facility] Basophil % 0.2 % [facility] Baso Absolute 0.0 0.0 - 0.1 x10(3)/mc L [facility] Immature Gran % 0.20 % [facility] Comment: Immature granulocytes(IG's)percentage and absolute count will include metamyelocytes, myelocytes, and promyelocytes. Blood smears from CBCs yielding IG's will be scanned manually for concordance. If this scan disagrees with the automated IG or if promyelocytes are noted, a manual differential will be performed. Immature Gran Absolute 0.01 0.00 - 0.04 x10(3)/mc L [facility] Blood 05/08/2023 11:3 8 AM EDT 05/08/2023 11:44 AM EDT Narrative Resulting Agency Comment Spec In Lab Lincoln Sal MD HEMATOLOGY ORDERA BLES [facility] [place] [address] * (ABNORMAL) Hemogram (05/08/2023 11:38 AM EDT) White Blood Cell 4.1 4.0 - 9.5 x10(3)/mc L [facility] Red Blood Cell 3.05(L) 4.00 - 5.21 x10(6)/mc L [facility] Hemoglobin 10.2(L) 11.7 - 15.5 g/dL [facility] Hematocrit 29.6(L) 35.7 - 45.8 % [facility] Mean Cell Volume 97.0(H) 82.6 - 94.4 fL [facility] Mean Cell Hemoglobin 33.4(H) 27.1 - 32.0 pg [facility] Mean Cell Hemoglobin Concentration 34.5 31.7 - 35.0 g/dL [facility] Platelet 136(L) 145 - 357 x10(3)/mc L [facility] RDW Standard Deviation 44.3 37.0 - 46.0 fL [facility] RDW coefficient of variation 12.6 11.5 - 14.1 % [facility] Mean Platelet Volume 9.4 7.6 - 12.9 fL [facility] NRBC% auto 0.0 % [facility] NRBC Absolute 0.000 0.000 - 0.000 x10(3)/mc L [facility] Blood 05/08/2023 11:3 8 AM EDT 05/08/2023 11:44 AM EDT Narrative Resulting Agency Comment Spec In Lab Lincoln Sal MD HEMATOLOGY ORDERA BLES [facility] [place] [address] * TSH (05/08/2023 11:38 AM EDT) Thyroid Stimulating Hormone 1.27 0.27 - 4.20 mcIU/mL [facility] Comment: Reference Interval (mcIU/mL): Females: ??First Trimester: 0.23-3.88 ??Second Trimester: 0.22-3.90 ??Third Trimester: 0.44-4.66 Blood 05/08/2023 11:3 8 AM EDT 05/08/2023 11:44 AM EDT Narrative Resulting Agency Comment Spec In Lab Enrique Chua MD CHEMISTRY ORDERABLES Performing Organization Address City/[facility] Co de Phone Number [facility] [place] [address] * (ABNORMAL) Phosphorus (05/08/2023 11:38 AM EDT) Phosphorus 4.7(H) 2.5 - 4.5 mg/dL [facility] Blood 05/08/2023 11:3 8 AM EDT 05/08/2023 11:44 AM EDT Narrative Resulting Agency Comment Spec In Lab Enrique Chua MD CHEMISTRY ORDERABLES Performing Organization Address [facility] Co de Phone Number [facility] [place] [address] * Magnesium (05/08/2023 11:38 AM EDT) Magnesium 0.76 0.69 - 1.07 mmol/L [facility] Blood 05/08/2023 11:3 8 AM EDT 05/08/2023 11:44 AM EDT Narrative Resulting Agency Comment Spec In Lab Enrique Chua MD CHEMISTRY ORDERABLES Performing Organization Address [facility] Co de Phone Number [facility] [place] [address] * (ABNORMAL) Basic Metabolic Panel (non-fasting) (05/08/2023 11:38 AM EDT) Glucose 97 65 - 199 mg/dL [facility] Comment:Diabetes: >=200 mg/d L plus symptoms Blood Urea Nitrogen 27(H) 8 - 18 mg/dL [facility] Creatinine 1.02 0.70 - 1.20 mg/dL [facility] Sodium 139 135 - 145 mmol/L [facility] Potassium 4.2 3.5 - 5.0 mmol/L [facility] Comment: Please note: ??Patients with WBC >100,000 may have falsely elevated Potassium levels. ??For accurate Potassium quantification in these patients send serum separator tube (gold top) for subsequent determinations. ??Contact the Clinical Chemistry Laboratory if there are any questions. Chloride 105 98 - 107 mmol/L [facility] Carbon Dioxide 20(L) 22 - 31 mmol/L [facility] Anion Gap 14 5 - 15 mmol/L [facility] Calcium 9.4 8.5 - 10.5 mg/dL [facility] Est Glomerular Filtration Rate 60 >=60 mL/min/1. 73 m?? [facility] Comment: This patient's estimated GFR was [...] Chua MD CHEMISTRY ORDERABLES Performing Organization Address City/State/[facility] Co de Phone Number [facility] [place] [address] * ECHO COMPLETE (05/08/2023 11:02 AM EDT) EF 25 [employer] Anatomical Region Laterality Modality Cardiac Other 05/08/2023 10:0 3 AM EDT Narrative 05/08/2023 11:51 AM EDT ? Echocardiogram Report Name: PURNIMA THACKER ?Study Date: 05/08/2023 10:03 AMBP: 92/64 mmHg ? Patient Location: [facility]^CV29^A : 1955 ? Height: 155 cm ? Account: [id number] Age: 67 yrs ? Weight: 78 kg Gender: Female ?BSA: 1.8 m2 Ordering Physician: ENRIQUE CHUA Referring Physician: MARIO ALBERTO CHIN Performed By: CHUCKIE Canchola Reason For Study: SAVR Stenosis Exam Location: [facility]. Interpretation Summary -Left ventricle is severely [...] worsening stenosis. Mitral regurgitation is similar. Procedure Complete-[id number]. Satisfactory quality. There is normal sinus rhythm. [...] Study Date: 310:03 AMBP: 92/64 mmHg Patient Location:[facility]^CV29^A : 1955 Height: 155 cm Account: [id number] Age: 67 yrs Weight: 78 kg Gender: Female BSA: 1.8 m2 Ordering Physician: ENRIQUE CHUA Referring Physician: MARIO ALBERTO CHIN Performed By: CHUCKIE Canchola Reason For Study: SAVR Stenosis Exam Location: [facility]. Interpretation Summary -Left ventricle is severely [...] suggestsworsening stenosis. Mitral regurgitation is similar. Procedure Complete-[id number]. Satisfactory quality. There is normal sinus rhythm. 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 Mild coronary artery disease by [facility] 11/09/2022 Mixed connective tissue disease Other [...] ejection fraction Mild coronary artery disease by [facility] 11/09/2022 Stenosis of prosthetic aortic valve [...] Patient/family refused) 0900 (Not Given - Provider: iKa Gallego RN - Reason: Patient/family refused) potassium chloride ER (Klor-Con M) crystal tablet 40 mEq (COMPLETED) 40 mEq, Oral, ONCE, 1 dose, On [facility] 05/20/23 at 0915, potassium chloride ER [...] post-op day 1 in the AM Give KS if unable to take PO, Routine Group [...] Routine documented in this encounter Care Teams Hunting Sales Associate Relationship Specialty Start Date End Date Magdalena Acosta MD [address] [place] [address] PCP - General Family Medicine 02/05/23 documented as of this encounter
--- OUTSIDE RECORDS SUMMARY | 2024-03-16 14:10 | XMS_ITS | Encounter Summary ---
[place] [address] Care Team Providers Care Combat Rifle Crewmember Name Role Phone Junaid Deborah Shields APRN Primary Care Provider [phone] Reason for Visit * Reason Comments Follow-up Encounter Details Date Type Department Care Team (Late st Contact Info) Description 01/10/2021 4:30 PM EDT Office Visit Dermatology at [place] [address] [place] [id number] Marek Bonilla MD [address] [facility] [place], [place] [id number] Rosacea Social History Tobacco Use Types Packs/Day [...] cutaneous and ocular 2. Previously told by delivery assistant that she had corneal tears from [...] 3 refills. Will call this in her [facility] in [place] 3. Continue metronidazole 0.75% gel applying once [...] PM EDT Office Visit Dermatology at [address] [phone] Marek Bonilla MD [address] [facility] [place] [address] documented as of this encounter Visit Diagnoses Diagnosis Rosacea documented in this encounter Care Teams Combat Rifle Crewmember Relationship Specialty Start Date End Date Deborah Quiroga APRN PCP - General Family Medicine 03/24/16 02/04/23 documented as of this encounter
--- OUTSIDE RECORDS SUMMARY | 2024-03-16 14:10 | XMS_ITS | Encounter Summary ---
Author Organization [facility] [place] [address] Care Team Providers Care Police Stenographer Name Role Phone Magdalena Acosta MD Primary Care Provider [phone] Encounter Details Date Type Department Care Team (Late st Contact Info) Description 02/17/2023 2:00 PM EDT Office [place] [phone] Alirio Esparza MD Aortic valve stenosis, etiology of cardiac valve [...] 4:15 PM EDT Office Visit Dermatology at [place] [address] [place] [address] Marek Bonilla MD [address], [place] [address] documented as of this encounter Visit Diagnoses Diagnosis Aortic valve stenosis, etiology of cardiac valve disease unspecified documented in this encounter Care Teams Police Stenographer Relationship Specialty Start Date End Date Magdalena Acosta MD [address] [place] [address] PCP - General Family Medicine 02/05/23 documented as of this encounter
--- OUTSIDE RECORDS SUMMARY | 2024-03-16 14:10 | XMS_ITS | Encounter Summary ---
Author Organization [facility] Address [facility] [place] [address] Care Team Providers Care Knife Operator Name Role Phone Deborah Quiroga APRN Primary Care Provider [phone] Reason for Visit * Consultation (Routine) - Closed Specialty Diagnoses / Procedures Referred By Contkrystle t Referred To Contact Rheumatology Diagnoses Positive FRANCISCO (antinuclear antibody) Arthralgia, unspecified joint Sandy Wu APRN [address] [place] [address] [facility] Rheumatology [address] [place] [address] Referral ID Status Reason Start Date Expiration Date V isits Requested Visits Authorized [id number] Closed Consult, Test & Treat PCP Updated and/or Approved 01/01/2022 01/01/2023 6 6 Encounter Details Date Type Department Care Team (Latest Contact Info) Description 01/20/2022 10:00 AM EDT Office [place] [address] Raymond Loredo MD [facility] [place] [address] Rosacea; Raynaud's phenomenon without gangrene; [...] over radiocarpal or ulnocarpal joints. Hands: Normal powdered sugar supervisor and claw. SJC/TJC 0/0. Hips: Full motion, [...] done locally or here at [facility] that the current time is not particularly interested it seems Raymond Loredo MD documented in this encounter Plan of Treatment Upcoming Encounters Date Type Department Care Team (Late st Contact Info) Description 03/01/2025 4:15 PM EDT Office Visit Dermatology at [place] [address] [place] [address] Marek Bonilla MD [address] Katherine [place] [address] Scheduled Referrals Name Type Priority Associated Diagnoses [...] syndrome documented in this encounter Care Teams Knife Operator Relationship Specialty Start Date End Date Deborah Quiroga APRN PCP - General Family Medicine 03/24/16 02/04/23 documented as of this encounter
--- OUTSIDE RECORDS SUMMARY | 2024-03-16 14:10 | XMS_ITS | Encounter Summary ---
[place] [address] Care Team Providers Care Clothes Marker Name Role Phone Deborah Quiroga APRN Primary Care Provider [phone] Encounter Details Date Type Department Care Team [...] PM EDT Office Visit Dermatology at [address] [place] [address] Marek Bonilla MD [address] [place] [address] documented as of this encounter Visit Diagnoses Not on filedocumented in this encounter Care Teams Clothes Marker Relationship Specialty Start Date End Date Deborah Quiroga APRN PCP - General Family Medicine 03/24/16 02/04/23 documented as of this encounter
--- OUTSIDE RECORDS SUMMARY | 2024-03-16 14:10 | XMS_ITS | Encounter Summary ---
Author Organization Formerly [facility] Address [facility] [place] [address] Care Team Providers Care College Athletic Director Name Role Phone Magdalena Acosta MD Primary Care Provider [phone] Encounter Details Date Type Department Care Team (Late st Contact Info) Description 04/27/2023 3:00 PM EDT Office [place] [address] Magdalena Peralta MD [facility] [place] [address] Mixed connective tissue disease Social History Tobacco [...] 1:5120 speckled; VIC negative; Myositis panel with PROPOSAL ANALYST ab 149.1 (positive); Anti U1RNP IgG 119; [...] 4:15 PM EDT Office Visit Dermatology at [place] [address] [facility] [place] [address] Marek Bonilla MD [address] [facility] [place] [address] documented as of this encounter Visit Diagnoses Diagnosis Mixed connective tissue disease Other specified diffuse disease of connective tissue documented in this encounter Care Teams College Athletic Director Relationship Specialty Start Date End Date Magdalena Acosta MD [address] [place] [address] PCP - General Family Medicine 02/05/23 documented as of this encounter
--- OUTSIDE RECORDS SUMMARY | 2024-03-16 14:10 | XMS_ITS | Encounter Summary ---
Author Organization [facility] Address [facility] [place] [address] Care Team Providers Care Burlap Bag Sewer Name Role Phone Magdalena Acosta MD Primary Care Provider [phone] Encounter Details Date Type Department Care Team (Late st Contact Info) Description 03/29/2023 Orders Only Cardiology at [address] [phone] Ranjan Delgado [place] [address] Severe aortic stenosis (Primary Dx) Social History [...] 4:15 PM EDT Office Visit Dermatology at [place] [address] [facility] [place] [address] Marek Bonilla MD [address] [facility] [place] [address] Scheduled Orders Name Type Priority [...] disorders documented in this encounter Care Teams Burlap Bag Sewer Relationship Specialty Start Date End Date Magdalena Acosta MD [address] [place] [address] PCP - General Family Medicine 02/05/23 documented as of this encounter
--- OUTSIDE RECORDS SUMMARY | 2024-03-16 14:10 | XMS_ITS | Encounter Summary ---
[place] [address] Care Team Providers Care Medical Office Assistant Name Role Phone Deborah Quiroga APRN Primary Care Provider [phone] Encounter Details Date Type Department Care Team (Late st Contact Info) Description 06/05/2021 Interpretation Only [address] [address] Deborah Quiroga CYBER INCIDENT RESPONDER [address] [address] Social History Tobacco Use Types Packs/Day Years [...] 4:15 PM EDT Office Visit Dermatology at [place] [address] [facility] [place] [address] Marek Bonilla MD [address] [facility] [place] [address] documented as of this encounter Procedures Procedure Name Priority Date/Time Associated Diagnosis Comments MAMMO SCREENING CAD BILATERAL Routine 06/05/2021 11:42 AM EDT documented in this encounter Results * Mammo Screening Cad Bilateral (06/05/2021 11:42 AM EDT) PT CLASS O DH RAD ADMITDTTM DH RAD PT RAD INFO [id number]^EV ERETT^DEBORAH^E DH RAD EXAM DESC MADDSC^SCREEN MAMMO [...] who have questions please contact the health clinical care leader that requested your imaging first. ? [...] patients who have questions please contactthe health clinical care leader that requested your imaging first. Electronically signed by: Rocael Villatoro MD, [facility]([phone]), at 06/05/2021 1:27 PM Deborah Quiroga APRN IMGerman MAMMO ORDERABLE S documented in this encounter Visit Diagnoses Not on filedocumented in this encounter Care Teams Medical Office Assistant Relationship Specialty Start Date End Date Deborah Quiroga APRN PCP - General Family Medicine 03/24/16 02/04/23 documented as of this encounter
--- OUTSIDE RECORDS SUMMARY | 2024-03-16 14:10 | XMS_ITS | Encounter Summary ---
Author Organization [facility] [place] [address] Care Team Providers Care Buyer Grain Name Role Phone Deborah Quiroga APRN Primary Care Provider [phone] Encounter Details Date Type Department Care Team (Late st Contact Info) Description 11/02/2022 Orders Only High [employer] [place] [address] Emily Lyons PA [facility] [place] [address] Aortic valve stenosis, etiology of cardiac valve [...] EDT Office Visit Dermatology at [place] [address] [place] [address] Marek Bonilla MD [address], [place] [address] documented as of this encounter Visit Diagnoses Diagnosis Aortic valve stenosis, etiology of cardiac valve disease unspecified documented in this encounter Care Teams Buyer Grain Relationship Specialty Start Date End Date Deborah Quiroga APRN PCP - General Family Medicine 03/24/16 02/04/23 documented as of this encounter
--- OUTSIDE RECORDS SUMMARY | 2024-03-16 14:10 | XMS_ITS | Encounter Summary ---
Author Organization [facility] [address] Care Team Providers Care Backup Engineer Name Role Phone Deborah Quiroga APRN Primary Care Provider [phone] Encounter Details Date Type Department Care Team (Latest Contact Info) Description 07/03/2022 12:28 PM EST - 07/03/2022 1:35 PM EST Hospital Encounter [place]ematology [place] [address] Chronic idiopathic neutropenia Discharge Disposition: Home Social [...] 4:15 PM EDT Office Visit Dermatology at [place] [address] [facility] [place] [address] Marek Bonilla MD [address], [place] [address] documented as of this encounter Procedures Procedure [...] (ABNORMAL) Differential, Automated (07/03/2022 12:40 PM EST) [facility] Neutrophil % 72.9 % [facility] Neutrophil Absolute 2.61 1.70 - 6.10 x10(3)/[facility] Lymph % 18.4 % [facility] Lymphocytes Abs 0.7(L) 0.9 - 3.2 x10(3)/[facility] Monocyte % 8.4 % [facility] Monocyte Abs 0.3 0.3 - 0.9 x10(3)/[facility] Eos % 0.0 % [facility] Eosinophils Abs 0.0 0.0 - 0.4 x10(3)/[facility] Basophil % 0.3 % [facility] Baso Absolute 0.0 0.0 - 0.1 x10(3)/[facility] Immature Gran % 0.00 % [facility] Comment: Immature granulocytes(IG's)percentage and absolute count will include metamyelocytes, myelocytes, and promyelocytes. Blood smears from CBCs yielding IG's will be scanned manually for concordance. If this scan disagrees with the automated IG or if promyelocytes are noted, a manual differential will be performed. Immature Gran Absolute 0.00 0.00 - 0.04 x10(3)/[facility] Blood 07/03/2022 12:4 0 PM EST 07/03/2022 1:03 PM EST Narrative Resulting Agency Comment Spec In Lab Markel Borjas MD HEMATOLOGY ORDERAB LES [facility] [place] [address] * (ABNORMAL) Hemogram (07/03/2022 12:40 PM EST) White Blood Cell 3.6(L) 4.0 - 9.5 x10(3)/[facility] Red Blood Cell 3.61(L) 4.00 - 5.21 x10(6)/mc L [facility] Hemoglobin 11.7 11.7 - 15.5 g/dL [facility] Hematocrit 34.5(L) 35.7 - 45.8 % [facility] Mean Cell Volume 95.6(H) 82.6 - 94.4 fL [facility] Mean Cell Hemoglobin 32.4(H) 27.1 - 32.0 pg [facility] Mean Cell Hemoglobin Concentration 33.9 31.7 - 35.0 g/dL [facility] Platelet 171 145 - 357 x10(3)/mc L [facility] RDW Standard Deviation 40.5 37.0 - 46.0 fL [facility] RDW coefficient of variation 11.5 11.5 - 14.1 % [facility] Mean Platelet Volume 9.2 7.6 - 12.9 [facility] NRBC% auto 0.0 % [facility] NRBC Absolute 0.000 0.000 - 0.000 x10(3)/mc L [facility] Blood 07/03/2022 12:4 0 PM EST 07/03/2022 1:03 PM EST Narrative Resulting Agency Comment Spec In Lab Markel Borjas MD HEMATOLOGY ORDERAB LES [facility] [place] [address] * (ABNORMAL) Comprehensive metabolic panel (non-fasting) (07/03/2022 12:40 PM EST) Glucose 92 65 - 199 mg/dL [facility] Comment:Diabetes: >=200 mg/d L plus symptoms Blood Urea Nitrogen 22(H) 8 - 18 mg/dL [facility] Creatinine 0.80 0.70 - 1.20 mg/dL [facility] Sodium 139 135 - 145 mmol/L [facility] Potassium 4.2 3.5 - 5.0 mmol/L [facility] Comment: Please note: ??Patients with WBC >100,000 may have falsely elevated Potassium levels. ??For accurate Potassium quantification in these patients send serum separator tube (gold top) for subsequent determinations. ??Contact the Clinical Chemistry Laboratory if there are any questions. Chloride 105 98 - 107 mmol/L [facility] Carbon Dioxide 23 22 - 31 mmol/L [facility] Anion Gap 11 5 - 15 mmol/L [facility] Calcium 10.1 8.5 - 10.5 mg/dL [facility] Protein, Total 7.6 6.1 - 8.0 g/dL [facility] Albumin 4.1 3.2 - 5.2 g/dL [facility] Aspartate Aminotransferase 25 0 - 30 unit/L [facility] Alanine Aminotransferase 14 0 - 30 unit/L [facility] Alkaline Phosphatase 80 35 - 105 unit/L [facility] Bilirubin, Total 0.3 0.2 - 1.3 mg/dL [facility] Est Glomerular Filtration Rate 81 >=60 mL/min/1. 73 m?? [facility] Comment: This patient's estimated GFR [...] Lab Markel Borjas MD CHEMISTRY ORDERABL ES [facility] [place] [address] documented in this encounter Visit Diagnoses Diagnosis Chronic idiopathic neutropenia Other neutropenia documented in this encounter Care Teams Backup Engineer Relationship Specialty Start Date End Date Deborah Quiroga APRN PCP - General Family Medicine 03/24/16 02/04/23 documented as of this encounter
--- OUTSIDE RECORDS SUMMARY | 2024-03-16 14:10 | XMS_ITS | Encounter Summary ---
[place] [address] Care Team Providers Care Addictions Counselor Name Role Phone Magdalena Acosta MD Primary Care Provider [phone] Reason for Visit * Reason Comments Annual Exam Encounter Details Date Type Department Care Team (Late st Contact Info) Description 02/05/2023 2:30 PM EDT Office Visit Dermatology at [address] [address] Marek Bonilla MD [address] [facility] [place] [address] Rosacea; Ocular rosacea; Nevus Social History Tobacco [...] cutaneous and ocular 2. Previously told by component technician that she had corneal tears from her [...] PM EDT Office Visit Dermatology at [address] [phone] Marek Bonilla MD [address] [facility] [place] [address] documented as of this encounter Visit Diagnoses Diagnosis Rosacea Ocular rosacea Rosacea Nevus Benign neoplasm of skin, site unspecified documented in this encounter Care Teams Addictions Counselor Relationship Specialty Start Date End Date Magdalena Acosta MD [address] [place] [address] PCP - General Family Medicine 02/05/23 documented as of this encounter
--- OUTSIDE RECORDS SUMMARY | 2024-03-16 14:10 | XMS_ITS | Encounter Summary ---
[place] [address] Care Team Providers Care Application Architect Manager Name Role Phone Magdalena Acosta MD Primary Care Provider [phone] Encounter Details Date Type Department Care Team [...] PM EDT Office Visit Dermatology at [address] [place] [address] Marek Bonilla MD [address] [facility], [place] [address] documented as of this encounter Visit Diagnoses Not on filedocumented in this encounter Care Teams Application Architect Manager Relationship Specialty Start Date End Date Magdalena Acosta MD [address] [place] [address] PCP - General Family Medicine 02/05/23 documented as of this encounter
--- OUTSIDE RECORDS SUMMARY | 2024-03-16 14:10 | XMS_ITS | Encounter Summary ---
Author Organization [facility] [place] [address] Care Team Providers Care Party Plan Sales Unit Advisor Name Role Phone Deborah Quiroga APRN Primary Care Provider [phone] Encounter Details Date Type Department Care Team (Late st Contact Info) Description 11/09/2022 11:30 AM EDT - 11/09/2022 12:30 PM EDT Surgery [place] [address] Nitesh Escobedo MD [facility] [place] [address] CARDIAC CATHETERIZATION Social History Tobacco Use Types [...] Center 02/05/2023 2:30 PM Marek Bonilla MD [facility] New Medications to be Picked Up None For questions regarding this document or issues relating to this hospitalization on the Medical Service, please contact your inpatient physician through the [facility] Prison Warden . Issues afterhours and on weekends will [...] topically 2 times daily as needed. 10/22/2022 [employer] Verio test strips Strip USE DAILY 01/03/2022 [employer] Delica Plus Lancet 33 gauge Misc USE [...] MD - 11/09/2022 11:20 AM EDT . [facility] Interventional Cardiology Adult Pre-Procedure H&P Update: Cardiac Catheterization Purnima Thacker [id number] 1955 Chief Complaint: BONILLA HPI: Purnima Thacker [...] Marrero MD Interventional Cardiology 11/09/22 11:43 AM [facility] Pager: [phone] documented in this encounter Plan of Treatment Upcoming Encounters Date Type Department Care Team (Late st Contact Info) Description 03/01/2025 4:15 PM EDT Office Visit Dermatology at [place] [address] [facility] [place] [address] Marek Bonilla MD [address] [facility], [place] [address] documented as of this encounter Procedures Procedure Name Priority Date/Time Associated Diagnosis Comments CARDIAC CATHETERIZATION Routine 11/10/19 1:05 PM EDT Aortic valve stenosis, etiology of cardiac valve disease unspecified Cath Plmt Left Heart Cath & Arts W/Inj & Angio Img S&I ([id number]) 11/09/2022 11:51 AM EDT Aortic valve stenosis, etiology of cardiac valve disease unspecified EKG 12-LEAD Routine 11/09/2022 11:17 AM EDT Aortic valve stenosis, etiology of cardiac valve disease unspecified documented in this encounter Results * CARDIAC CATHETERIZATION (11/09/2022 1:05 PM EDT) Anatomical Region Laterality Modality Other Narrative 11/09/2022 2:01 PM EDT ?[facility] ? Cardiac Catheterization/Intervention Report ? Patient Name: Kirstie, Purnima M. ? Procedure Date: 11/09/2022 ? A #: [id number] ? Primary Physician: Nitesh Escobedo ? Case #: [id number] ? File Name: [id number] ? Catheterization Order Number: [id number] ? [facility] ? Final Report [place], [place] ? Patient Name: ? Purnima M. Kirstie ? ID#: ?[id number] ? : ?1955 ? Procedure Date: ? [...] (Bezet) 457 ms MUSE SYSTEM Calculated P [place] 44 degrees MUSE SYSTEM Calculated R [place] 33 degrees MUSE SYSTEM Calculated T [place] 30 degrees MUSE SYSTEM INTERPRETATION Sinus rhythm Occasional Premature ventricular complexes Otherwise normal ECG When compared with ECG of 21-SEP-2016 12:26, Premature ventricular complexes are now Present SC interval has decreased Nonspecific T wave abnormality has replaced inverted T waves in Inferior leads I personally reviewed the tracing and edited the fellows interpretation Confirmed by fellow MD Anitha, Carissa ([id number]) on 11/09/2022 6:17:28 PM Confirmed by Elsa [...] MD) documented in this encounter Care Teams Party Plan Sales Unit Advisor Relationship Specialty Start Date End Date Deborah Quiroga, COST CONTROL ANALYST PCP - General Family Medicine 03/24/16 02/04/23 documented as of this encounter
--- OUTSIDE RECORDS SUMMARY | 2024-03-16 14:10 | XMS_ITS | Encounter Summary ---
Author Organization [facility] Address [facility] [place] [address] Care Team Providers Care Woodworking Craftsman Name Role Phone Junaid Deborah Shields APRN Primary Care Provider [phone] Encounter Details Date Type Department Care Team (Latest Contact Info) Description 06/22/2022 10:00 AM EST [place] [phone] Raymond Loredo MD [facility] [place] [address] Raynaud's phenomenon without gangrene; Positive FRANCISCO (antinuclear [...] can be done locally or here at [facility] that the current time is not particularly [...] for surgery by Dr. Rogers here at [facility]. In addition to painful dysesthesias in her [...] radiocarpal or ulnocarpal joints. 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 SJC/TJC 0/0. Knees: Decreased flexion [...] EDT Office Visit Dermatology at [place] [address] [facility] [place] [address] Marek Bonilla MD [address] [facility] [place] [address] documented as of this encounter Visit Diagnoses Diagnosis Raynaud's phenomenon without gangrene Positive FRANCISCO (antinuclear antibody) Other and unspecified nonspecific immunological findings Primary osteoarthritis involving multiple joints Cervical disc disorder at C6-C7 level with radiculopathy documented in this encounter Care Teams Woodworking Craftsman Relationship Specialty Start Date End Date Deborah Quiroga APRN PCP - General Family Medicine 03/24/16 02/04/23 documented as of this encounter
--- OUTSIDE RECORDS SUMMARY | 2024-03-16 14:10 | XMS_ITS | Encounter Summary ---
Author Organization Formerly [facility] Address [facility] [place] [address] Care Team Providers Care Industrial Sweeper Cleaner Name Role Phone Deborah Quiroga ANURAG Primary Care Provider [phone] Encounter Details Date Type Department Care Team (Late st Contact Info) Description 01/14/2023 Refill Dermatology at [address] [address] Lupe Connor RN Social History [...] She would like the medication called into [facility] in [facility]. Discussed with Dr. Bonilla and he has approved refill of the Doxycycline 50 mg take one capsule by mouth daily in the evenings dispense 30 capsules with 2 refills. Patient notified. documented in this encounter Plan of Treatment Upcoming Encounters Date Type Department Care Team (Late st Contact Info) Description 03/01/2025 4:15 PM EDT Office Visit Dermatology at [place] [address] [facility] [place] [address] Marek Bonilla MD [address] [place] [address] documented as of this encounter Visit Diagnoses Not on filedocumented in this encounter Care Teams Industrial Sweeper Cleaner Relationship Specialty Start Date End Date Deborah Quiroga APRN PCP - General Family Medicine 03/24/16 02/04/23 documented as of this encounter
--- OUTSIDE RECORDS SUMMARY | 2024-03-16 14:10 | XMS_ITS | Encounter Summary ---
[place] [address] Care Team Providers Care Agricultural Technical Officer Name Role Phone Deborah Quiroga APRN Primary Care Provider [phone]- [phone] Encounter Details Date Type Department Care Team (Late st Contact Info) Description 06/05/2021 Interpretation Only [address] [phone] Deborah Quiroga SAMPLE CHECKER [address] [address] Social History Tobacco Use Types Packs/Day Years [...] Office Visit Dermatology at [place] [address] [place] [address] Marek Bonilla MD [address] [facility], [place] [address] documented as of this encounter Procedures Procedure Name Priority Date/Time Associated Diagnosis Comments DXA CENTRAL SPINE, HIP, AND/OR WHOLE BODY (GENERIC) Routine 06/05/2021 11:58 AM EDT documented in this encounter Results * DXA Central Spine, Hip, and/or Whole Body (Generic) (06/05/2021 11:58 AM EDT) PT CLASS O RAD ADMITDTTM RAD PT RAD INFO [id number]^E VERETT^DEBORAH ^E RAD EXAM DESC XDXAC^DEXA SCAN AXIAL^RIS [facility] Anatomical Region Laterality Modality C-spine, Hip N/A [...] have questions please contact the health physician locums urgent care that requested your imaging first. ? Electronically signed by: Rocael Villatoro MD, [facility] ([phone]), at 06/05/2021 12:00 PM Narrative 06/05/2021 12:00 PM EDT EXAMINATION: DEXA SCAN AXIAL CLINICAL HISTORY: Screening for osteoporosis postmenopausal. TECHNIQUE: Scans were acquired at the lumbar spine, left hip. COMPARISON: None. FINDINGS: Lowest T score at a diagnostic region of interest: T score: -0.6, ALSYA:Femoral neck, WHO diagnosis: Normal Procedure Note Rocael [...] who have questions please contactthe health physician locums urgent care that requested your imaging first. Electronically signed by: Rocael Villatoro MD, [facility] [place]([phone]), at 06/05/2021 12:00 PM Deborah Quiroga APRN IMGerman DEXA ORDERABLES documented in this encounter Visit Diagnoses Not on filedocumented in this encounter Care Teams Agricultural Technical Officer Relationship Specialty Start Date End Date Deborah Quiroga APRN PCP - General Family Medicine 03/24/16 02/04/23 documented as of this encounter
--- OUTSIDE RECORDS SUMMARY | 2024-03-16 14:10 | XMS_ITS | Encounter Summary ---
[place] [address] Care Team Providers Care Traffic Chief Name Role Phone Deborah Quiroga APRN Primary Care Provider [phone]- [phone] Encounter Details Date Type Department Care Team (Late st Contact Info) Description 01/09/2022 Refill Dermatology at [address] [phone] Lupe Connor RN Social History Tobacco Use [...] PM EDT Office Visit Dermatology at [address] [phone] Marek Bonilla MD [address] [facility], [place] [address] documented as of this encounter Visit Diagnoses Not on filedocumented in this encounter Care Teams Traffic Chief Relationship Specialty Start Date End Date Deborah Quiroga APRN PCP - General Family Medicine 03/24/16 02/04/23 documented as of this encounter
--- OUTSIDE RECORDS SUMMARY | 2024-03-16 14:10 | XMS_ITS | Encounter Summary ---
[place] [address] Care Team Providers Care Network Technician Name Role Phone Ashley Quirogan Cornelius ANURAG Primary Care Provider [phone] Reason for Visit * Reason Comments Acrochordon Rosacea Encounter Details Date Type Department Care Team (Late st Contact Info) Description 12/05/2020 3:00 PM EDT Office Visit Dermatology at [address] [phone] Marek Bonilla MD 580 [facility], [place] [address] Inflamed acrochordon Social History Tobacco Use Types [...] 4:15 PM EDT Office Visit Dermatology at [place] [address] [place] [address] Marek Bonilla MD [address] [facility], [facility] [place] [address] documented as of this encounter Visit Diagnoses Diagnosis Inflamed acrochordon Unspecified hypertrophic and atrophic condition of skin documented in this encounter Care Teams Network Technician Relationship Specialty Start Date End Date Deborah Quiroga APRN PCP - General Family Medicine 03/24/16 02/04/23 documented as of this encounter
--- OUTSIDE RECORDS SUMMARY | 2024-03-16 14:10 | XMS_ITS | Encounter Summary ---
[place] [address] Care Team Providers Care Rrt Name Role Phone Deborah Quiroga APRN Primary Care Provider [phone]- [phone] Encounter Details Date Type Department Care Team [...] PM EDT Office Visit Dermatology at [address] [address] Marek Bonilla MD [address] [facility] [address], [place] [address] documented as of this encounter Visit Diagnoses Not on filedocumented in this encounter Care Teams Rrt Relationship Specialty Start Date End Date Deborah Quiroga APRN PCP - General Family Medicine 03/24/16 02/04/23 documented as of this encounter
--- OUTSIDE RECORDS SUMMARY | 2024-03-16 14:10 | XMS_ITS | Encounter Summary ---
[place] [address] Care Team Providers Care Owner Name Role Phone Magdalena Acosta MD Primary Care Provider [phone] Encounter Details Date Type Department Care Team (Latest Contact Info) Description 03/18/2023 2:30 PM EDT Laboratory Appointment Lab [address] [phone] Positive FRANCISCO (antinuclear antibody) Social History Tobacco [...] 4:15 PM EDT Office Visit Dermatology at [place] [address] [place] [phone] Marek Bonilla MD [address] [address], [place] [address] documented as of this encounter Procedures Procedure [...] 2:14 PM EDT) Neutrophil % 71.2 % [facility] Neutrophil Absolute 2.26 1.70 - 6.10 x10(3)/mc L [facility] Lymph % 18.2 % [facility] Lymphocytes Abs 0.6(L) 0.9 - 3.2 x10(3)/mc L [facility] Monocyte % 9.7 % [facility] Monocyte Abs 0.3 0.3 - 0.9 x10(3)/mc L [facility] Eos % 0.3 % [facility] Eosinophils Abs 0.0 0.0 - 0.4 x10(3)/mc L [facility] Basophil % 0.6 % [facility] Baso Absolute 0.0 0.0 - 0.1 x10(3)/[facility] Immature Gran % 0.00 % [facility] Comment: Immature granulocytes(IG's)percentage and absolute count will include metamyelocytes, myelocytes, and promyelocytes. Blood smears from CBCs yielding IG's will be scanned manually for concordance. If this scan disagrees with the automated IG or if promyelocytes are noted, a manual differential will be performed. Immature Gran Absolute 0.00 0.00 - 0.04 x10(3)/[facility] Blood 03/18/2023 2:14 PM EDT 03/18/2023 2:24 PM EDT Narrative Resulting Agency Comment Spec In Lab Magdalena Peralta MD HEMATOLOGY ORDERABLE S Performing Organization Address City/State/[facility] Co de Phone Number [facility] [address] * (ABNORMAL) Hemogram (03/18/2023 2:14 PM EDT) White Blood Cell 3.2(L) 4.0 - 9.5 x10(3)/[facility] Red Blood Cell 3.44(L) 4.00 - 5.21 x10(6)/[facility] Hemoglobin 11.1(L) 11.7 - 15.5 g/dL [facility] Hematocrit 32.9(L) 35.7 - 45.8 % [facility] Mean Cell Volume 95.6(H) 82.6 - 94.4 fL [facility] Mean Cell Hemoglobin 32.3(H) 27.1 - 32.0 pg [facility] Mean Cell Hemoglobin Concentration 33.7 31.7 - 35.0 g/dL [facility] Platelet 144(L) 145 - 357 x10(3)/[facility] RDW Standard Deviation 42.6 37.0 - 46.0 fL [facility] RDW coefficient of variation 12.3 11.5 - 14.1 % [facility] Mean Platelet Volume 9.4 7.6 - 12.9 fL [facility] NRBC% auto 0.0 % [facility] NRBC Absolute 0.000 0.000 - 0.000 x10(3)/mc L [facility] Blood 03/18/2023 2:14 PM EDT 03/18/2023 2:24 PM EDT Narrative Resulting Agency Comment Spec In Lab Magdalena Peralta MD HEMATOLOGY ORDERABLE S Performing Organization Address [facility] Co de Phone Number [facility] [address] * (ABNORMAL) Sedimentation rate (03/18/2023 2:14 PM EDT) Sedimentation Rate Automated 68(H) 2 - 39 mm/hr [facility] Comment: Effective July 12, 2019 new capillary photometric technology has resulted in a change in reference ranges. It is recommended that each ESR result be reviewed with its own age appropriate reference range. Blood 03/18/2023 2:14 PM EDT 03/18/2023 2:24 PM EDT Narrative Resulting Agency Comment Spec In Lab Kia Viramontes DO HEMATOLOGY ORDERAB LES Performing Organization Address [facility] Co de Phone Number [facility] [address] * CRP, acute inflammation (03/18/2023 2:14 PM EDT) C-Reactive Protein 3.0 <=4.9 mg/L [facility] Blood 03/18/2023 2:14 PM EDT 03/18/2023 2:24 PM EDT Narrative Resulting Agency Comment Spec In Lab Kia Viramontes DO CHEMISTRY ORDERABL ES Performing Organization Address [facility] Co de Phone Number [facility] [address] * C3 Complement (03/18/2023 2:14 PM EDT) Complement C3 142 90 - 180 mg/dL [facility] Blood 03/18/2023 2:14 PM EDT 03/18/2023 2:24 PM EDT Narrative Resulting Agency Comment Spec In Lab Kia Viramontes DO CHEMISTRY ORDERABL ES Performing Organization Address [facility] de Phone Number [facility] [address] * C4 Complement (03/18/2023 2:14 PM EDT) Complement C4 30 10 - 40 mg/dL [facility] Blood 03/18/2023 2:14 PM EDT 03/18/2023 2:24 PM EDT Narrative Resulting Agency Comment Spec In Lab Kia Viramontes DO CHEMISTRY ORDERABL ES Performing Organization Address [facility] de Phone Number [facility] [address] * CK (03/18/2023 2:14 PM EDT) Creatine Kinase 38 0 - 160 unit/L [facility] Blood 03/18/2023 2:14 PM EDT 03/18/2023 2:24 PM EDT Narrative Resulting Agency Comment Spec In Lab Kia Viramontes DO CHEMISTRY ORDERABL ES Performing Organization Address [facility] de Phone Number [facility] [address] * DNA Antibody (Double-Stranded) (03/18/2023 2:14 PM EDT) dsDNA Ab <0.6 <=15.0 IU/mL [facility] Comment: <10 negative 10-15 equivocal >15 positive This dsDNA antibody result was generated using a fluoroenzyme immunoassay on the PBJ Concierge 250 analyzer. This quantitative test is designed to detect IgG antibodies directed against double stranded DNA in human serum. The presence of antibodies that recognize dsDNA is a highly specific marker for systemic lupus erythematosus. Please note that as of 05/26/2022 that this testing is performed by the [facility] at [facility] This change in testing location is associated with a change is testing method and reference intervals. Please review the results of this test in association with the posted reference intervals. Blood 03/18/2023 2:14 PM EDT 03/19/2023 7:19 AM EDT Narrative Resulting Agency Comment Spec In Lab Kia Viramontes DO LAB SEND OUT ORDER JODIE [facility] [address] * (ABNORMAL) FRANCISCO Ab by IFA (03/18/2023 2:14 PM EDT) FRANCISCO Ab Screen Test ? Result ?Flag ??Unit ??RefValue Antinuclear Ab, HEp-2 ?Positive 1:2560 ??@ ?<1:80 (Negative) ??Substrate, S ? ADDITIONAL INFORMATION --------- ?Method: Immunofluorescence using HEp-2 cellular substrate. ??FRANCISCO Titer: ? 1:2560 ??FRANCISCO Pattern: ? Speckled ?Test Performed by: ?[facility] ?[address] [place] [address] ?Fundraising Assistant: Raymond Chaudhry M.D. Ph.D.; CLIA# [id number] (A) [facility] Blood 03/18/2023 2:14 PM EDT 03/18/2023 3:02 PM EDT Narrative Resulting Agency Comment Spec In Lab Kia James Wander DO CHEMISTRY ORDERABL ES [facility] [address] * Comprehensive metabolic panel (non-fasting) (03/18/2023 2:14 PM EDT) Glucose 93 65 - 199 mg/dL [facility] Comment:Diabetes: >=200 mg/d L plus symptoms Blood Urea Nitrogen 18 8 - 18 mg/dL [facility] Creatinine 0.99 0.70 - 1.20 mg/dL [facility] Sodium 141 135 - 145 mmol/L [facility] Potassium 4.5 3.5 - 5.0 mmol/L [facility] Comment: Please note: ??Patients with WBC >100,000 may have falsely elevated Potassium levels. ??For accurate Potassium quantification in these patients send serum separator tube (gold top) for subsequent determinations. ??Contact the Clinical Chemistry Laboratory if there are any questions. Chloride 106 98 - 107 mmol/L [facility] Carbon Dioxide 24 22 - 31 mmol/L [facility] Anion Gap 11 5 - 15 mmol/L [facility] Calcium 10.0 8.5 - 10.5 mg/dL [facility] Protein, Total 7.3 6.1 - 8.0 g/dL [facility] Albumin 4.3 3.2 - 5.2 g/dL [facility] Aspartate Aminotransferase 26 0 - 30 unit/L [facility] Alanine Aminotransferase 11 0 - 30 unit/L [facility] Alkaline Phosphatase 91 35 - 105 unit/L [facility] Bilirubin, Total 0.4 0.2 - 1.3 mg/dL [facility] Est Glomerular Filtration Rate 62 >=60 mL/min/1. 73 m?? [facility] Comment: This patient's estimated GFR [...] DO CHEMISTRY ORDERABL ES Performing Organization Address City/State/[facility] [place] [address] documented in this encounter Visit Diagnoses Diagnosis Positive FRANCISCO (antinuclear antibody) Other and unspecified nonspecific immunological findings documented in this encounter Care Teams Owner Relationship Specialty Start Date End Date Magdalena Acosta MD [address] [place] [address] PCP - General Family Medicine 02/05/23 documented as of this encounter
--- OUTSIDE RECORDS SUMMARY | 2024-03-16 14:10 | XMS_ITS | Encounter Summary ---
Author Organization [facility] [place] [address] Care Team Providers Care Tilting Saw Operator Name Role Phone Deborah uQiroga APRN Primary Care Provider [phone] Encounter Details Date Type Department Care Team (Late st Contact Info) Description 06/08/2022 Ancillary Procedure [place] [phone] Deborah Quiroga, MARKETING PROPOSAL COORDINATOR [address] [address] Social History Tobacco Use Types Packs/Day Years [...] EDT Office Visit Dermatology at [place] [address] [facility] [place] [phone] Marek Bonilla MD [address] [facility], [place] [address] documented as of this encounter Procedures Procedure [...] LIBRARY OR DERABLES Performing Organization Address City/State/[facility] Co de Phone Number [place], [place] documented in this encounter Visit Diagnoses Not on filedocumented in this encounter Care Teams Tilting Saw Operator Relationship Specialty Start Date End Date Deborah Quiorga APRN PCP - General Family Medicine 03/24/16 02/04/23 documented as of this encounter
--- OUTSIDE RECORDS SUMMARY | 2024-03-16 14:10 | XMS_ITS | Encounter Summary ---
Author Organization [facility] Address [facility] [place] [address] Care Team Providers Care A R Collections Rep Name Role Phone Deborah Quiroga APRN Primary Care Provider [phone] Reason for Visit * Reason Comments Follow-up Encounter Details Date Type Department Care Team (Late st Contact Info) Description 07/03/2022 1:30 PM EST Office Visit Hematology [place] [address] Markel Borjas MD [facility] [address] HEMATOLOGY [place] [address] Consuelo Sommer APRN [facility] [address] HEMATOLOGY [place] [address] Chronic idiopathic neutropenia; Dysuria Social History Tobacco [...] 07/03/2022 1:30 PM EST Hematology Outpatient Clinic [facility] [...] TOUCH PREP, CLOT SECTION, CORE ??BIOPSY); [OSR# [id number], COLLECTED 06/23/2016, 19 SLIDES]: ?1. 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 Extremities: No edema. Labs: Hgb= 11.7 Qsdt=670 ANC= 2.5 Imaging As above - reviewed [...] 4:15 PM EDT Office Visit Dermatology at [place] [address] [place] [phone] Marek Bonilla MD [address] [facility], [place] [address] documented as of this encounter Procedures Procedure [...] tract infection, submit a new specimen. (A) [facility] Clean Catch Urine 07/03/2022 2:00 PM EST 07/03/2022 5:55 PM EST Narrative Resulting Agency Comment Spec In Lab Markel Borjas MD MICROBIOLOGY - GEN ERAL ORDERABLES Performing Organization Address [facility] de Phone Number [facility] [place] [address] * (ABNORMAL) Urinalysis Microscopic Exam (07/03/2022 2:00 PM EST) RBC, Urine 2 0 - 4 /HPF [facility] WBC, Urine 14(H) 0 - 5 /HPF [facility] Bacteria, Urine Occasional (A) None /HPF [facility] Squamous Epithelial Cells Raw Data, Urine 12(H) <=4 /HPF [facility] Hyaline Casts, Urine 2 0 - 2 /LPF [facility] Clean Catch Urine 07/03/2022 2:00 PM EST 07/03/2022 2:29 PM EST Narrative Resulting Agency Comment Spec In Lab Markel Borjas MD URINE ORDERABLES Performing Organization Address [facility] de Phone Number [facility] [place] [address] * (ABNORMAL) Urinalysis with reflex Culture (07/03/2022 2:00 PM EST) Glucose, Urine Dipstick Negative Negative mg/dL [facility] Protein, Urine Dipstick 30(A) Negative mg/dL [facility] Bilirubin, Urine Dipstick Negative Negative mg/dL [facility] Comment: Clinical correlation required for positive Urine Bilirubin results as false positive may occur with some drugs and drug related products. If a false positive is suspected a serum total bilirubin should be considered if clinically indicated. Urobilinogen, Urine Dipstick Normal Normal mg/dL [facility] pH, Urn (dipstick) 5.5 5.0 - 8.0 [facility] Blood, Urine Dipstick Negative Negative mg/dL [facility] Ketone, Urine Dipstick Trace(A) Negative mg/dL [facility] Nitrite, Urine Dipstick Negative Negative [facility] Leukocytes, Urine Dipstick Small(A) Negative [facility] Appearance, Urine Dipstick Clear Clear [facility] Specific [place] Urine Automated 1.022 1.005 - 1.030 [facility] Color, Urine Dipstick Yellow Yellow [facility] Reflex to Culture Yes [facility] Clean Catch Urine 07/03/2022 2:00 PM EST 07/03/2022 2:29 PM EST Narrative Resulting Agency Comment Spec In Lab Markel Borjas MD URINE ORDERABLES [facility] [place] [address] * (ABNORMAL) Comprehensive metabolic panel (non-fasting) (07/03/2022 12:40 PM EST) Glucose 92 65 - 199 mg/dL [facility] Comment:Diabetes: >=200 mg/d L plus symptoms Blood Urea Nitrogen 22(H) 8 - 18 mg/dL [facility] Creatinine 0.80 0.70 - 1.20 mg/dL [facility] [...] mmol/L [facility] Carbon Dioxide 23 22 - 31 mmol/L [facility] Anion Gap 11 5 - 15 mmol/L [facility] Calcium 10.1 8.5 - 10.5 mg/dL [facility] Protein, Total 7.6 6.1 - 8.0 g/dL [facility] Albumin 4.1 3.2 - 5.2 g/dL [facility] Aspartate Aminotransferase 25 0 - 30 unit/L [facility] Alanine Aminotransferase 14 0 - 30 unit/L [facility] Alkaline Phosphatase 80 35 - 105 unit/L [facility] Bilirubin, Total 0.3 0.2 - 1.3 mg/dL [facility] Est Glomerular Filtration Rate 81 >=60 mL/min/1. 73 m?? [facility] [...] Lab Markel Borjas MD CHEMISTRY ORDERABL ES [facility] [place] [address] documented in this encounter Visit Diagnoses Diagnosis Chronic idiopathic neutropenia Other neutropenia Dysuria documented in this encounter Care Teams A R Collections Rep Relationship Specialty Start Date End Date Deborah Quiroga APRN PCP - General Family Medicine 03/24/16 02/04/23 documented as of this encounter
--- OUTSIDE RECORDS SUMMARY | 2024-03-16 14:10 | XMS_ITS | Encounter Summary ---
[place] [address] Care Team Providers Care Slat Basket Maker Name Role Phone Deborah Quiroga APRN Primary Care Provider [phone] Reason for Referral * Consultation (Routine) - Closed Specialty Diagnoses / Procedures Referred By Contac t Referred To Contact Rheumatology Diagnoses Positive FRANCISCO (antinuclear antibody) Arthralgia, unspecified joint Sandy Wu APRN [address] [place] [address] [facility] Rheumatology [address] [place] [phone] Referral ID Status Reason Start Date Expiration Date V isits Requested Visits Authorized [id number] Closed Consult, Test & Treat PCP Updated and/or Approved 01/01/2022 01/01/2023 6 6 Encounter Details Date Type Department Care Team (Latest Contact Info) Description 01/01/2022 Transcribe Orders eDH Incoming Referrals [phone] Sandy Wu APRN [address] [place], [place] [id number] Positive FRANCISCO (antinuclear antibody); Arthralgia, unspecified joint [...] 4:15 PM EDT Office Visit Dermatology at [place] [address] [facility] [place] [address] Marek Bonilla MD [address], [place] [address] Scheduled Referrals Name Type Priority Associated Diagnoses Orde r Schedule Referral to Rheumatology Outpatient Referral Routine Positive FRANCISCO (antinuclear antibody) Arthralgia, unspecified joint Ordered: 01/01/2022 documented as of this encounter Visit Diagnoses Diagnosis Positive FRANCISCO (antinuclear antibody) Other and unspecified nonspecific immunological findings Arthralgia, unspecified joint documented in this encounter Care Teams Slat Basket Maker Relationship Specialty Start Date End Date Deborah Quiroga APRN PCP - General Family Medicine 03/24/16 02/04/23 documented as of this encounter
--- OUTSIDE RECORDS SUMMARY | 2024-03-16 14:10 | XMS_ITS | Encounter Summary ---
Author Organization [facility] [place] [address] Care Team Providers Care Pedal Assembler Name Role Phone Junaid Deborah Shields APRN Primary Care Provider [phone] Encounter Details Date Type Department Care Team (Latest Contact Info) Description 11/09/2022 10:37 AM EDT - 11/09/2022 4:53 PM EDT Hospital En[place] [address] Nitesh Escobedo MD [facility] [place] [address] Aortic valve stenosis, etiology of cardiac valve [...] Bonilla MD [facility] New Medications to be Picked Up None For questions regarding this document or issues relating to this hospitalization on the Medical Service, please contact your inpatient physician through the [facility] Information Systems Analyst . Issues afterhours and on weekends will be handled by the Hospitalist staff on-call. * Attachments The following attachments cannot be sent through Care Everywhere. * Coronary Angiogram: Post-op (Cymraes) * Right Heart Catheterization: Pulmonary Artery Catheterization: Post-op (Cymraes) documented in this encounter Medications at Time [...] 11/09/2022 11:20 AM EDT . [facility] Interventional Cardiology Adult Pre-Procedure H&P Update: Cardiac Catheterization Purnima Thacker [id number] 1955 Chief Complaint: BONILLA HPI: Purnima Thacker [...] Interventional Cardiology 11/09/22 11:43 AM [facility] Pager: [phone] documented in this encounter Plan of Treatment Upcoming Encounters Date Type Department Care Team (Late st Contact Info) Description 03/01/2025 4:15 PM EDT Office Visit Dermatology at [place] [address] [facility] [place] [phone] Marek Bonilla MD [address], [place] [address] documented as of this encounter Procedures Procedure Name Priority Date/Time Associated Diagnosis Comments CARDIAC CATHETERIZATION Routine 11/10/19 1:05 PM EDT Aortic valve stenosis, etiology of cardiac valve disease unspecified Cath Plmt Left Heart Cath & Arts W/Inj & Angio Img S&I ([id number]) 11/09/2022 11:51 AM EDT Aortic valve stenosis, etiology of cardiac valve disease unspecified EKG 12-LEAD Routine 11/09/2022 11:17 AM EDT Aortic valve stenosis, etiology of cardiac valve disease unspecified documented in this encounter Results * CARDIAC CATHETERIZATION (11/09/2022 1:05 PM EDT) Anatomical Region Laterality Modality Other Narrative 11/09/2022 2:01 PM EDT ?[facility] ? Cardiac Catheterization/Intervention Report ? Patient Name: Purnima Thacker. ? Procedure Date: 11/09/2022 ? A #: [id number] ? Primary Physician: Nitesh Escobedo ? Case #: [id number] ? File Name: [id number] ? Catheterization Order Number: [id number] ? [facility] ? Final Report [place], [place] ? Patient Name: ? Purnima M. Kirstie ? ID#: ?[id number] ? : ?1955 ? Procedure Date: ? [...] was designated as ASA Class III. The [facility] clinical frailty scale ?is 4: Vulnerable. [...] (Bezet) 457 ms MUSE SYSTEM Calculated P [place] 44 degrees MUSE SYSTEM Calculated R [place] 33 degrees MUSE SYSTEM Calculated T [place] 30 degrees MUSE SYSTEM INTERPRETATION Sinus rhythm Occasional Premature ventricular complexes Otherwise normal ECG When compared with ECG of 21-SEP-2016 12:26, Premature ventricular complexes are now Present [place] interval has decreased Nonspecific T wave abnormality has replaced inverted T waves in Inferior leads I personally reviewed the tracing and edited the fellows interpretation Confirmed by fellow MD Welsh Hanyuan ([id number]) on 11/09/2022 6:17:28 PM Confirmed by Elsa [...] MD) documented in this encounter Care Teams Pedal Assembler Relationship Specialty Start Date End Date Deborah Quiroga, DIRECTOR CHEMISTRY PCP - General Family Medicine 03/24/16 02/04/23 documented as of this encounter
--- OUTSIDE RECORDS SUMMARY | 2024-03-16 14:10 | XMS_ITS | Encounter Summary ---
Author Organization [facility] Address [facility] [place] [address] Care Team Providers Care Concrete Vibrator Operator Name Role Phone Ashley Quirogazac Shields APRN Primary Care Provider [phone] Reason for Referral * Consultation (Routine) - Closed Specialty Diagnoses / Procedures Referred By Contac t Referred To Contact Neurology Diagnoses Neck pain Popeye Rogers MD [facility] [place] [address] Kyra Haas MD [facility] [address] [address] Referral ID Status Reason Start Date Expiration Date V isits Requested Visits Authorized [id number] Closed Consult, Test & Treat 06/29/2022 06/29/2023 1 1 Reason for Visit * Reason Comments Neck Pain Weak in both arms, p ain and tingling in arms and hands Encounter Details Date Type Department Care Team (Late st Contact Info) Description 06/29/2022 10:20 AM EST Office Visit [place] [address] Popeye Rogers MD [facility] [place] [address] Neck pain Social History Tobacco Use Types [...] have EMG and nerve conduction studies in [place] that showed carpal tunnel syndrome. I do not have a copy of that report. documented in this encounter Plan of Treatment Upcoming Encounters Date Type Department Care Team (Late st Contact Info) Description 03/01/2025 4:15 PM EDT Office Visit Dermatology at [place] [address] [facility] [place] [address] Marek Bonilla MD [address], [place] [address] Scheduled Referrals Name Type Priority Associated Diagnoses Orde r Schedule Referral to Neurology Outpatient Referral Routine Neck pain Ordered: 06/29/2022 documented as of this encounter Visit Diagnoses Diagnosis Neck pain Cervicalgia documented in this encounter Care Teams Concrete Vibrator Operator Relationship Specialty Start Date End Date Deborah Quiroga APRN PCP - General Family Medicine 03/24/16 02/04/23 documented as of this encounter
--- OUTSIDE RECORDS SUMMARY | 2024-03-16 14:10 | XMS_ITS | Encounter Summary ---
Author Organization [facility] [place] [address] Care Team Providers Care Compressor Assembler Name Role Phone Magdalena Acosta MD Primary Care Provider [phone] Encounter Details Date Type Department Care Team (Latest Contact Info) Description 02/05/2023 9:33 PM EDT - 02/05/2023 11:59 PM EDT Hospital [place] [phone] Discharge Disposition: Home Social History Tobacco Use [...] 4:15 PM EDT Office Visit Dermatology at [place] [address] [place] [address] Marek Bonilla MD 580 [facility] [place] [address] documented as of this encounter Procedures Procedure Name Priority Date/Time Associated Diagnosis Comments SURGICAL PATHOLOGY REPORT Routine 02/05/2023 3:00 PM EDT documented in this encounter Results * Surgical Pathology Report (02/05/2023 3:00 PM EDT) Final Diagnosis [id number] ? Location: [facility]W The signing pathologist has (i) examined the relevant preparation(s) for the specimen(s) and (ii) rendered or confirmed the diagnosis(es). . ?Surgical Pathology DIAGNOSIS Left upper back, skin punch biopsy: - ??Compound dysplastic ??melanocytic nevus with moderate atypia, transected at peripheral specimen edges ?? (see discussion) Electronically signed by: ?Vanna CULP, Jesse Shields Verified: ??02/16/2023 8:04 ?? Dermatopathologist Performed at: ??[facility] Dept. of [place]ology, [place] [address] Barrel Painter: Kunal Rubi MD, FCAP, ??CLIA Certificate: [id number] DISCUSSION If there is an obvious clinical [...] labeled A1. ??sns 02/16/2023 8:04 AM EDT [facility] SPECIMEN FROM SKIN / Unknown 02/05/2023 3:00 PM EDT 02/05/2023 3:00 PM EDT Marek Bonilla MD PATHOLOGY/CYTOLOGY O RDERABLES [facility] [place] [address] [facility] [place] [address] documented in this encounter Visit Diagnoses Not on filedocumented in this encounter Care Teams Compressor Assembler Relationship Specialty Start Date End Date Magdalena Acosta MD [address] [place] [address] PCP - General Family Medicine 02/05/23 documented as of this encounter
--- OUTSIDE RECORDS SUMMARY | 2024-03-16 14:10 | XMS_ITS | Encounter Summary ---
[place] [address] Care Team Providers Care Fiscal Analyst Name Role Phone Magdalena Acosta MD Primary Care Provider [phone] Encounter Details Date Type Department Care Team [...] PM EDT Office Visit Dermatology at [address] [place] [address] Marek Bonilla MD [address] [facility] [place] [address] documented as of this encounter Visit Diagnoses Not on filedocumented in this encounter Care Teams Fiscal Analyst Relationship Specialty Start Date End Date Magdalena Acosta MD [address] [place] [address] PCP - General Family Medicine 02/05/23 documented as of this encounter
--- OUTSIDE RECORDS SUMMARY | 2024-03-16 14:10 | XMS_ITS | Encounter Summary ---
Author [place] [address] Care Team Providers Care V Groove Cutter Name Role Phone Magdalena Acosta MD Primary Care Provider [phone] Encounter Details Date Type Department Care Team [...] PM EDT Office Visit Dermatology at [address] [place] [address] Marek Bonilla MD [address] [facility] [place] [address] documented as of this encounter Visit Diagnoses Not on filedocumented in this encounter Care Teams V Groove Cutter Relationship Specialty Start Date End Date Magdalena Acosta MD [address] [place] [address] PCP - General Family Medicine 02/05/23 documented as of this encounter
--- OUTSIDE RECORDS SUMMARY | 2024-03-16 14:10 | XMS_ITS | Encounter Summary ---
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 documented in this encounter Plan of Treatment Upcoming Encounters Date Type Department Care Team (Late st Contact Info) Description 03/01/2025 4:15 PM EDT Office Visit Dermatology at [place] [address] [facility] [place] [address] Marek Bonilla MD [address], [place] [address] documented as of this encounter Visit Diagnoses Not on filedocumented in this encounter Care Teams Glucose And Syrup Weigher Relationship Specialty Start Date End Date Magdalena Acosta MD [address] [place] [address] PCP - General Family Medicine 02/05/23 documented as of this encounter
--- OUTSIDE RECORDS SUMMARY | 2024-03-16 14:10 | XMS_ITS | Encounter Summary ---
[place] [address] Care Team Providers Care Home Energy Auditor Name Role Phone Magdalena Acosta MD Primary Care Provider [phone] Encounter Details Date Type Department Care Team [...] PM EDT Office Visit Dermatology at [address] [place] [address] Marek Bonilla MD 580 [facility] [place] [address] documented as of this encounter Visit Diagnoses Not on filedocumented in this encounter Care Teams Home Energy Auditor Relationship Specialty Start Date End Date Magdalena Acosta MD [address] [place] [address] PCP - General Family Medicine 02/05/23 documented as of this encounter
--- OUTSIDE RECORDS SUMMARY | 2024-03-16 14:10 | XMS_ITS | Encounter Summary ---
[place] [address] Care Team Providers Care Production Cloth Cutter Name Role Phone Magdalena Acosta MD Primary Care Provider [phone] Encounter Details Date Type Department Care Team [...] PM EDT Office Visit Dermatology at [address] [place] [address] Marek Bonilla MD 580 [facility], [place] [address] documented as of this encounter Visit Diagnoses Not on filedocumented in this encounter Care Teams Production Cloth Cutter Relationship Specialty Start Date End Date Magdalena Acosta MD [address] [place] [address] PCP - General Family Medicine 02/05/23 documented as of this encounter
--- OUTSIDE RECORDS SUMMARY | 2024-03-16 14:10 | XMS_ITS | Encounter Summary ---
[place] [address] Care Team Providers Care Bpm Architect Name Role Phone Ashley Quirogazac Shields APRN Primary Care Provider [phone] Reason for Visit * Reason Comments Annual Exam Encounter Details Date Type Department Care Team (Late st Contact Info) Description 01/09/2022 3:15 PM EDT Office Visit Dermatology at [address] [address] Marek Bonilla MD [address] [facility] [address] DERMATOLOGY [place], [place] [phone] Rosacea Social History Tobacco Use Types Packs/Day [...] cutaneous and ocular 2. Previously told by ton container shipper that she had corneal tears from her [...] refills. We will call this into her [facility] in [place] 3. Continue metronidazole 0.75% gel applying every [...] EDT Office Visit Dermatology at [place] [address] [facility] [place] [address] Marek Bonilla MD [address] [facility], [place] [address] documented as of this encounter Visit Diagnoses Diagnosis Rosacea documented in this encounter Care Teams Bpm Architect Relationship Specialty Start Date End Date Deborah Quiroga APRN PCP - General Family Medicine 03/24/16 02/04/23 documented as of this encounter
--- OUTSIDE RECORDS SUMMARY | 2024-03-16 14:10 | XMS_ITS | Encounter Summary ---
Author Organization [place] [address] Care Team Providers Care Customer Account Technician Name Role Phone Deborah Quiroga APRN Primary Care Provider [phone] Encounter Details Date Type Department Care Team (Latest Contact Info) Description 07/03/2022 1:36 PM EST - 07/03/2022 11:59 PM EST Hospital Encounter Hematology [place] [address] Discharge Disposition: Home Social History Tobacco Use [...] 4:15 PM EDT Office Visit Dermatology at [place] 580 [place] [address] Marek Bonilla MD 580 [facility], [place] [address] documented as of this encounter Procedures Procedure Name Priority Date/Time Associated Diagnosis Comments FOLATE, SERUM Routine 07/03/2022 1:59 PM EST VITAMIN B12 Routine 07/03/2022 1:59 PM EST documented in this encounter Results * Folate, serum (07/03/2022 1:59 PM EST) Folate >20.0 4.8 - 24.2 ng/mL [facility] Blood Venous Draw / Unknown 07/03/2022 1:59 PM EST 07/03/2022 2:13 PM EST Narrative Resulting Agency Comment Spec In Lab Markel Borjas MD CHEMISTRY ORDERABL ES Performing Organization Address City/[facility]/ZIP Co de Phone Number [facility] [place] [address] * Vitamin B12 (07/03/2022 1:59 PM EST) Vitamin B12 449 232 - 1,245 pg/mL [facility] Blood Venous Draw / Unknown 07/03/2022 1:59 PM EST 07/03/2022 2:13 PM EST Narrative Resulting Agency Comment Spec In Lab Markel Borjas MD CHEMISTRY ORDERABL ES Performing Organization Address [facility] [place] [address] documented in this encounter Visit Diagnoses Not on filedocumented in this encounter Care Teams Customer Account Technician Relationship Specialty Start Date End Date Deborah Quiroga APRN PCP - General Family Medicine 03/24/16 02/04/23 documented as of this encounter
--- OUTSIDE RECORDS SUMMARY | 2024-03-16 14:10 | XMS_ITS | Encounter Summary ---
Author [place] [address] Care Team Providers Care Director Child Name Role Phone Deborah Quiroga APRN Primary Care Provider [phone] Encounter Details Date Type Department Care Team [...] PM EDT Office Visit Dermatology at [address] [place] [address] Marek Bonilla MD [address] [facility] [address] [address], [place] [address] documented as of this encounter Visit Diagnoses Not on filedocumented in this encounter Care Teams Director Child Relationship Specialty Start Date End Date Deborah Quiroga APRN PCP - General Family Medicine 03/24/16 02/04/23 documented as of this encounter
--- OUTSIDE RECORDS SUMMARY | 2024-03-16 14:10 | XMS_ITS | Encounter Summary ---
[place] [address] Care Team Providers Care Hardwood Floor Refinisher Name Role Phone Deborah Quiroga APRN Primary Care Provider Encounter Details Date Type Department Care Team (Late st Contact Info) Description 06/17/2022 Ancillary Procedure [place] [phone] Deborah Quiroga, ORACLE SPECIALIST [address] [address] Social History Tobacco Use Types Packs/Day Years [...] 4:15 PM EDT Office Visit Dermatology at [place] [address] [place] [address] Marek Bonilla MD [address] [facility], [place] [address] documented as of this encounter Procedures Procedure [...] FILM LIBRARY OR DERABLES Performing Organization Address City/State/[facility] Co de Phone Number [place], [place] documented in this encounter Visit Diagnoses Not on filedocumented in this encounter Care Teams Hardwood Floor Refinisher Relationship Specialty Start Date End Date Deborah Quiroga APRN PCP - General Family Medicine 03/24/16 02/04/23 documented as of this encounter
--- OUTSIDE RECORDS SUMMARY | 2024-03-16 14:10 | XMS_ITS | Encounter Summary ---
Author Organization On License Of [facility] Address [facility] [place] [address] Care Team Providers Care Chemist Food Name Role Phone Magdalena Acosta MD Primary Care Provider [phone] Reason for Visit * Consultation (Routine) - Closed Specialty Diagnoses / Procedures Referred By Contac t Referred To Contact Rheumatology Diagnoses Weakness Kyra Haas MD [facility] [address] [place] [address] [facility] Rheumatology [address] [place] [phone] Referral ID Status Reason Start Date Expiration Date V isits Requested Visits Authorized [id number] Closed Consult, Test & Treat PCP Updated and/or Approved 02/25/2023 02/25/2024 6 6 Encounter Details Date Type Department Care Team (Late st Contact Info) Description 03/18/2023 1:00 PM EDT Office [place] [address] Kia Viramontes DO [facility] [place] [address] Magdalena Peralta MD [facility] [address] Positive FRANCISCO (antinuclear antibody) Social [...] 1:5120 speckled VIC negative Myositis panel with GLASS DECORATOR ab 149.1 (positive) Anti U1RNP IgG 119 [...] a chair without assistance of upper extremities. Corporate Recycling Manager strength 3+/5 bilaterally; otherwise large muscle [...] due to risk of retinal toxicity with mcfp Plaquenil use, which she already does. Recommendations: #mixed connective tissue disease Start hydroxychloroquine 200 mg qd Labs today: repeat FRANCISCO, dsDNA, complements, CBC, CMP, CK, ESR, CRP Follow up 1 month The patient was seen and discussed with Dr. Wander Peralta MD Rheumatology Fellow Pager: [phone] CC: Kyra Haas * Kia Viramontes DO - 03/18/2023 1:00 PM EDT ATTENDING ADDENDUM The patient's history was reviewed, and I interviewed and examined the patient with Dr. Campbell. Arnold with her summary, findings, and plan. documented in this encounter Plan of Treatment Upcoming Encounters Date Type Department Care Team (Late st Contact Info) Description 03/01/2025 4:15 PM EDT Office Visit Dermatology at [place] [address] [place] [address] Marek Bonilla MD [address] [facility] [place] [address] documented as of this encounter Results * Comprehensive metabolic panel (non-fasting) (03/18/2023 2:14 PM EDT) Glucose 93 65 - 199 mg/dL [facility] Comment:Diabetes: >=200 mg/d L plus symptoms Blood Urea Nitrogen 18 8 - 18 mg/dL [facility] Creatinine 0.99 0.70 - 1.20 mg/dL [facility] Sodium 141 135 - 145 mmol/L [facility] Potassium 4.5 3.5 - 5.0 mmol/L [facility] Comment: Please note: ??Patients with WBC >100,000 may have falsely elevated Potassium levels. ??For accurate Potassium quantification in these patients send serum separator tube (gold top) for subsequent determinations. ??Contact the Clinical Chemistry Laboratory if there are any questions. Chloride 106 98 - 107 mmol/L [facility] Carbon Dioxide 24 22 - 31 mmol/L [facility] Anion Gap 11 5 - 15 mmol/L [facility] Calcium 10.0 8.5 - 10.5 mg/dL [facility] Protein, Total 7.3 6.1 - 8.0 g/dL [facility] Albumin 4.3 3.2 - 5.2 g/dL [facility] Aspartate Aminotransferase 26 0 - 30 unit/L [facility] Alanine Aminotransferase 11 0 - 30 unit/L [facility] Alkaline Phosphatase 91 35 - 105 unit/L [facility] Bilirubin, Total 0.4 0.2 - 1.3 mg/dL [facility] Est Glomerular Filtration Rate 62 >=60 mL/min/1. 73 m?? [facility] Comment: This patient's estimated [...] DO CHEMISTRY ORDERABL ES Performing Organization Address City/State/[facility] Co de Phone Number [facility] [place] [address] * (ABNORMAL) FRANCISCO Ab by IFA (03/18/2023 2:14 PM EDT) FRANCISCO Ab Screen Test ? Result ?Flag ??Unit ??RefValue Antinuclear Ab, HEp-2 ?Positive 1:2560 ??@ ?<1:80 (Negative) ??Substrate, S ? ADDITIONAL INFORMATION --------- ?Method: Immunofluorescence using HEp-2 cellular substrate. ??FRANCISCO Titer: ? 1:2560 ??FRANCISCO Pattern: ? Speckled ?Test Performed by: ?[facility] ?[address] [place] [address] ?Data Coordinator: Raymond Chaudhry M.D. Ph.D.; CLIA# [id number] ([id number]) [facility] Blood 03/18/2023 2:14 PM EDT 03/18/2023 3:02 PM EDT Narrative Resulting Agency Comment Spec In Lab Kia Viramontes DO CHEMISTRY ORDERABL ES Performing Organization Address [facility] de Phone Number [facility] [place] [address] * DNA Antibody (Double-Stranded) (03/18/2023 2:14 PM EDT) [facility] dsDNA Ab <0.6 <=15.0 IU/mL [facility] Comment: <10 negative 10-15 equivocal >15 positive This dsDNA antibody result was generated using a fluoroenzyme immunoassay on the Urgent.lydia 250 analyzer. This quantitative test is designed [...] SEND OUT ORDER JODIE Performing Organization Address [facility]/ZIP Co de Phone Number [facility] [place] [address] * CK (03/18/2023 2:14 PM EDT) Creatine Kinase 38 0 - 160 unit/L [facility] Blood 03/18/2023 2:14 PM EDT 03/18/2023 2:24 PM EDT Narrative Resulting Agency Comment Spec In Lab Kia D Wander DO CHEMISTRY ORDERABL ES Performing Organization Address [facility] Co de Phone Number [facility] [place] [address] * C4 Complement (03/18/2023 2:14 PM EDT) Complement C4 30 10 - 40 mg/dL [facility] Blood 03/18/2023 2:14 PM EDT 03/18/2023 2:24 PM EDT Narrative Resulting Agency Comment Spec In Lab Kia D Wander DO CHEMISTRY ORDERABL ES Performing Organization Address [facility] Co de Phone Number [facility] [place] [address] * C3 Complement (03/18/2023 2:14 PM EDT) Complement C3 142 90 - 180 mg/dL [facility] Blood 03/18/2023 2:14 PM EDT 03/18/2023 2:24 PM EDT Narrative Resulting Agency Comment Spec In Lab Kia D Wander DO CHEMISTRY ORDERABL ES Performing Organization Address [facility] Co de Phone Number [facility] [place] [address] * CRP, acute inflammation (03/18/2023 2:14 PM EDT) C-Reactive Protein 3.0 <=4.9 mg/L [facility] Blood 03/18/2023 2:14 PM EDT 03/18/2023 2:24 PM EDT Narrative Resulting Agency Comment Spec In Lab Kia Viramontes DO CHEMISTRY ORDERABL ES Performing Organization Address City/[facility]/ZIP Co de Phone Number [facility] [place] [address] * (ABNORMAL) Sedimentation rate (03/18/2023 2:14 PM EDT) Sedimentation Rate Automated 68(H) 2 - 39 mm/hr [facility] Comment: Effective July 12, 2019 new capillary photometric technology has resulted in a change in reference ranges. It is recommended that each ESR result be reviewed with its own age appropriate reference range. Blood 03/18/2023 2:14 PM EDT 03/18/2023 2:24 PM EDT Narrative Resulting Agency Comment Spec In Lab Kia Viramontes DO HEMATOLOGY ORDERAB LES Performing Organization Address City/[facility] Co de Phone Number [facility] [place] [address] documented in this encounter Visit Diagnoses Diagnosis Positive FRANCISCO (antinuclear antibody) Other and unspecified nonspecific immunological findings documented in this encounter Care Teams Chemist Food Relationship Specialty Start Date End Date Magdalena Acosta MD [address] [place] [address] PCP - General Family Medicine 02/05/23 documented as of this encounter
--- OUTSIDE RECORDS SUMMARY | 2024-03-16 14:10 | XMS_ITS | Encounter Summary ---
Author Organization [facility] [place] [address] Care Team Providers Care Nba Player Name Role Phone Magdalena Acosta MD Primary Care Provider Reason for Referral * Consultation (Routine) - Closed Specialty Diagnoses / Procedures Referred By Contac t Referred To Contact Rheumatology Diagnoses Weakness Kyra Haas MD [facility] [address] [place] [address] [facility] Rheumatology [address] [place] [phone] Referral ID Status Reason Start Date Expiration Date V isits Requested Visits Authorized [id number] Closed Consult, Test & Treat PCP Updated and/or Approved 02/25/2023 02/25/2024 6 6 Encounter Details Date Type Department Care Team (Late st Contact Info) Description 02/25/2023 Transcribe Orders eDH Incoming Referrals [phone] Magdalena Acosta MD [address] [place] [address] Weakness Social History Tobacco Use [...] 4:15 PM EDT Office Visit Dermatology at [place] [address] [place] [address] Marek Bonilla MD [address] [place] [address] Scheduled Referrals Name Type Priority Associated Diagnoses Order Schedule Referral to Rheumatology Outpatient Referral Routine Weakness Ordered: 02/25/2023 documented as of this encounter Visit Diagnoses Diagnosis Weakness Other malaise and fatigue documented in this encounter Care Teams Nba Player Relationship Specialty Start Date End Date Magdalena Acosta MD [address] [place] [address] PCP - General Family Medicine 02/05/23 documented as of this encounter
--- OUTSIDE RECORDS SUMMARY | 2024-03-16 14:10 | XMS_ITS | Encounter Summary ---
[place] [address] Care Team Providers Care Library Clerical Assistant Name Role Phone Deborah Quiroga APRN Primary Care Provider [phone] Encounter Details Date Type Department Care Team (Late st Contact Info) Description 01/13/2021 Refill Dermatology at [address] [phone] Taylor Malone, BARREL POLISHER INSIDE Social History Tobacco Use Types Packs/Day Years [...] PM EDT Office Visit Dermatology at [address] [phone] Marek Bonilla MD [address] [facility] [place] [address] documented as of this encounter Visit Diagnoses Not on filedocumented in this encounter Care Teams Library Clerical Assistant Relationship Specialty Start Date End Date Deborah Quiroga APRN PCP - General Family Medicine 03/24/16 02/04/23 documented as of this encounter
--- OUTSIDE RECORDS SUMMARY | 2024-03-16 14:10 | XMS_ITS | Encounter Summary ---
[place] [address] Care Team Providers Care Workforce Consultant Name Role Phone Deborah Quiroga APRN Primary Care Provider [phone] Encounter Details Date Type Department Care Team (Late st Contact Info) Description 06/05/2021 Interpretation Only [address] [phone] Deborah Quiroga HEALTH AND NUTRITION SPECIALIST [address] [id number] Social History Tobacco Use Types Packs/Day Years [...] 4:15 PM EDT Office Visit Dermatology at [place] [address] [facility] [place] [address] Marek Bonilla MD [address] [facility] [place] [address] documented as of this encounter Procedures Procedure Name Priority Date/Time Associated Diagnosis Comments MAMMO SCREENING CAD AND CATRACHITO BILATERAL Routine 06/05/2021 11:42 AM EDT documented in this encounter Results * Mammo Screening Cad and Catrachito Bilateral (06/05/2021 11:42 AM EDT) PT CLASS O DH RAD ADMITDTTM DH RAD PT DH RAD INFO [id number]^EVERET T^DEBORAH^E DH RAD EXAM DESC MADDSCTO^BREAST SCREEN [...] have questions please contact the health career technical counselor that requested your imaging first. ? Electronically signed by: Rocael Villatoro MD, [facility] ([phone]), at 06/05/2021 1:27 PM Narrative 06/05/2021 1:27 [...] who have questions please contactthe health career technical counselor that requested your imaging first. Electronically signed by: Rocael Villatoro MD, [facility]([phone]), at 06/05/2021 1:27 PM Deborah Quiroga APRN IMG MAMMO ORDERABLE S documented in this encounter Visit Diagnoses Not on filedocumented in this encounter Care Teams Workforce Consultant Relationship Specialty Start Date End Date Deborah Quiroga APRN PCP - General Family Medicine 03/24/16 02/04/23 documented as of this encounter
--- OUTSIDE RECORDS SUMMARY | 2024-03-16 14:10 | XMS_ITS | Encounter Summary ---
[place] [address] Care Team Providers Care General Supervisor Name Role Phone Magdalena Acosta MD Primary Care Provider [phone] Reason for Visit * Reason Comments Suture / Staple Removal Encounter Details Date Type Department Care Team (Late st Contact Info) Description 02/16/2023 10:00 AM EDT Office Visit Dermatology at [place] [address] [facility] [place] [phone] Marek Bonilla MD [address] [facility] DERMATOLOGY [place], [place] [phone] Visit for suture removal Social History Tobacco [...] 4:15 PM EDT Office Visit Dermatology at [place] [address] [facility] [place] [address] Marek Bonilla MD [address] [facility] [address] [place] [address] documented as of this encounter Visit Diagnoses Diagnosis Visit for suture removal Encounter for removal of sutures documented in this encounter Care Teams General Supervisor Relationship Specialty Start Date End Date Magdalena Acosta MD [address] [place] [address] PCP - General Family Medicine 02/05/23 documented as of this encounter
--- OUTSIDE RECORDS SUMMARY | 2024-03-16 14:10 | XMS_ITS | Encounter Summary ---
[place] [address] Care Team Providers Care Lead Injection Mold Technician Name Role Phone Magdalena Acosta MD Primary Care Provider [phone] Encounter Details Date Type Department Care Team [...] PM EDT Office Visit Dermatology at [address] [place] [address] Marek Bonilla MD [address] [facility] [place] [address] documented as of this encounter Visit Diagnoses Not on filedocumented in this encounter Care Teams Lead Injection Mold Technician Relationship Specialty Start Date End Date Magdalena Acosta MD [address] [place] [address] PCP - General Family Medicine 02/05/23 documented as of this encounter
--- OUTSIDE RECORDS SUMMARY | 2024-03-16 14:10 | XMS_ITS | Encounter Summary ---
Author Organization [facility] [place] [address] Care Team Providers Care Hydro Sprayer Operator Name Role Phone Deborah Quiroga APRN Primary Care Provider [phone] Reason for Referral * Consultation (Routine) - Closed Specialty Diagnoses / Procedures Referred By Crispin maxwell Referred To Contact Neurology Diagnoses Polyneuropathy Deborah Quiroga APRN [address] [place] [address] [facility] Neurology [address] [place] [phone] Referral ID Status Reason Start Date Expiration Date V isits Requested Visits Authorized [id number] Closed Consult, Test & Treat 10/29/2022 10/29/2023 1 1 Encounter Details Date Type Department Care Team (Latest Contact Info) Description 10/29/2022 Transcribe Orders eDH Incoming Referrals [phone] Deborah Quiroga APRN [address] [place] [address] Polyneuropathy (Primary Dx) Social History [...] 4:15 PM EDT Office Visit Dermatology at [place] [address] [place] [address] Marek Bonilla MD [address] [place] [address] Scheduled Referrals Name Type Priority Associated Diagnoses Orde r Schedule Referral to Neurology Outpatient Referral Routine Polyneuropathy Ordered: 10/29/2022 documented as of this encounter Visit Diagnoses Diagnosis Polyneuropathy- Primary Unspecified hereditary and idiopathic peripheral neuropathy documented in this encounter Care Teams Hydro Sprayer Operator Relationship Specialty Start Date End Date Deborah Quiroga APRN PCP - General Family Medicine 03/24/16 02/04/23 documented as of this encounter
--- OUTSIDE RECORDS SUMMARY | 2024-03-16 14:10 | XMS_ITS | Encounter Summary ---
[place] [address] Care Team Providers Care Radio Reporter Name Role Phone Magdalena Acosta MD Primary Care Provider [phone] Reason for Visit * Reason Comments Skin Lesion Encounter Details Date Type Department Care Team (Late st Contact Info) Description 04/20/2023 10:00 AM EDT Office Visit Dermatology at [address] [address] Marek Bonilla MD [address] [facility] [place] [address] Seborrheic keratosis Social History Tobacco Use Types [...] cutaneous and ocular 3. Previously told by bulk pallet builder that she had corneal tears from her [...] 4:15 PM EDT Office Visit Dermatology at [place] [address] [facility] [place] [address] Marek Bonilla MD [address] [place] [address] documented as of this encounter Visit Diagnoses Diagnosis Seborrheic keratosis Other seborrheic keratosis documented in this encounter Care Teams Radio Reporter Relationship Specialty Start Date End Date Magdalena Acosta MD [address] [place] [address] PCP - General Family Medicine 02/05/23 documented as of this encounter
--- OUTSIDE RECORDS SUMMARY | 2024-03-16 14:11 | XMS_ITS | Encounter Summary ---
Author Organization [facility] [place] [address] Care Team Providers Care Outbound Supervisor Name Role Phone Ashley Quirogan Cornelius ANURAG Primary Care Provider [phone] Reason for Referral * Consultation (Routine) - Specialty Diagnoses / Procedures Referred By Contact Referred To Contact Cardiac Rehabilitation Diagnoses S/P AVR Alirio Esparza MD [facility] [address] [place] [address] Cardiac Rehab, [address] [place] [address] Referral ID Status Reason Start Date Expiration Date V isits Requested Visits Authorized [id number] Consult, Test & Treat 09/25/2016 03/24/2017 36 36 Reason for Visit * Auth/Cert Specialty Diagnoses / Procedures Referred By Contkrystle t Referred To Contact Diagnoses Aortic stenosis Procedures PRO REPLACE AORT VALV, PROSTH VALV @REPLACE AORTIC VALVE, OPEN, W\CPB, W\PROSTHETIC VALVE (WRVU 41.32) Referral ID Status Reason Start Date Expiration Date Visits Re quested Visits Authorized [id number] 1 1 Encounter Details Date Type Department Care Team (Latest Contact Info) Description 09/21/2016 6:08 AM EST - 09/25/2016 4:33 PM EST Hospital Encounter Inter[place] [id number] Alirio Esparza MD Aortic valve stenosis, unspecified etiology; S/P AVR [...] Patient Age: 61 y.o. Birthdate: 1955 Language: Ecuadorean Race: White Ethnicity: Not nor Admit Date: 09/21/2016 Discharge Date: 09/25/2016 Attending Physician: Alirio Esparza MD Follow-up Recommendations for Providers: Please continue routine management of cardiovascular risk factors including blood pressure, lipids,glucose, etc. Please note any changes to medications. Patient to follow-up with PCP, Deborah Quiroga APRN, in 1-2 weeks. Patient to follow-up with Sweatband Cutting Machine Operator, Dr. Antelmo Burrell, in two weeks. Patient to follow-up with Cardiac Surgery, Dr. Alirio Esparza, to be scheduled for before 10/19/2016, with CXR, EKG, and Echo. Inpatient Provider Contact Information: [facility] Section of Cardiac [place] [facility] [place] [address] FAX [phone] Discharge Diagnoses (Hospital Problems) Primary Diagnoses: Secondary [...] W\CPB, W\PROSTHETIC VALVE (WRVU 41.32) performed by lAirio Esparza MD at [facility] ??? Pro aortoplas for supravalv sten N/A 09/21/2016 @AORTOPLASTY FOR SUPRAVALVULAR STENOSIS (WRVU 29.33) performed by Alirio Esparza MD at [facility] Prior To Admission Medications [...] Hospital Course: Purnima Thacker was admitted to [facility] on 09/21/2016 via the Same Day [...] 0445 100.7 kg (222 lb 0.1 oz) 09/24/ 0431 (!) 101.7 kg (224 lb 3.3 [...] every 6 hours when experiencing pain 1-10/10.). 1000 mg Quantity: 30 tablet Refills: 5 [...] Alirio Esparza and/or the Cardiac Surgery Physician Occupational Therapist Rehab Manager Team may be reached at . Antibiotic prophylaxis: You will need to take antibiotics prior to many invasive tests and treatments, such as dental cleaning, which should be done every 6 months. Your primary care physician or your dentist can prescribe this medication. Please refer to the card with the [place] Heart Association Guidelines for more information. You have been provided with 3 copies of this card. Keep one for your self. Give one to your primary care physician and one to your dentist. Please refer to the [place] Heart Association Guidelines for more information. Good [...] Dr. Alirio Jones. You may use a Warren Track or treadmill but avoid any pulling [...] should resume a low fat, low cholesterol, [place] Heart Association Diet. Driving: No driving until [...] Phase 2 Cardiac Rehabilitation at [facility]. The patient agrees to a referral to this program. The referral will be sent at discharge and the patient should be contacted by the program within 1- 2 weeks from discharge. Future Appointments and Orders Future Appointments Provider Department Dept Phone 11/20/2016 11:30 AM Markel Borjas MD [facility] [phone] Future Orders Complete By Expires Echocardiogram Transthoracic([facility]) [RYH580 Custom] 10/18/2016 (Approximate) 09/18/2017 Process Instructions: If the Echocardiogram is to be PERFORMED in a location other than [place]--STOP and order [id number], Echocardiogram South/External. Scheduling Instructions: Questions: Is a Bubble Study requested?: No Does the patient have Congenital Heart Disease?: No Does patient require sedation?: None GA rationale: Should this service be billed to the research sponsor?: EKG 12 Lead [EKG1 Custom] 10/18/2016 (Approximate) 09/25/2017 Process Instructions: Scheduling Instructions: Questions: Which location will this be performed?: [place] Is a rhythm strip needed?: No If EKG Reason is Pre-op Evaluation, indicate diagnosis for surgery.: Should this service be billed to the research sponsor?: XR Chest PA & Lateral (Generic) [[id number] Custom] 10/18/2016 (Approximate) 09/25/2017 Process Instructions: Scheduling Instructions: Questions: Where will study be performed?: [facility]- Radiology Portable exam?: No Reason for exam and clinical history: s/p AVReplacement, patch annuloplasty 1 month f/u Other pertinent information: Stat read required?: Date of injury if applicable: Requested Time: Referral to Cardiac Rehab [[id number] Custom] As directed Process Instructions: If no progress note charted, please enter Clinical details in comments. Scheduling Instructions: Questions: My question or request is: s/p AVR. Cardiac rehab at [facility] Referral to Home Health - at DISCHARGE [FPW1654 CPT(R)] As directed Process Instructions: Scheduling Instructions: Comments: DOCUMENTATION FOR VNA SERVICES (INCLUDING THOSE PATIENTS WITH MEDICARE COVERAGE REQUIRING HOME VNA SERVICES AND/OR HOSPICE SERVICES) PATIENT'S LOCATION: Purnima Magalie Kirstie [address] [place] [phone] (home) No relevant phone numbers on file. Grocery Store Clerk's Name: self In discussion with the attending physician, it is certified that this patient is under their care and that they, or a Nurse Practitioner, or Physician Occupational Therapist Rehab Manager who is working directly with them, hada [...] for services as follows: HOME HEALTH AGENCY: [facility] PHONE: [phone] FAX: [phone] RN orders: Cardiopulmonary assessment, incisional assessment, assess [...] issues please call the Cardiac SurgeryOffice at [phone] FOR MEDICARE ONLY: In discussion with the [...] noted. Questions: Agency name and contact information: [facility] Patient location post discharge: home What services are requested: Registered Nurse Physical Therapy Occupational Therapy Start date: Responsible MD post discharge contact info: Arrangements for VNA/home care: As above. VN RN OR PCP TO PLEASE REMOVE CHEST TUBE SUTURES ON OR AFTER 09/30/16 Signed: Crispin Aranda PA-C 09/25/2016 [facility] Section of Cardiac Surgery [facility] [place] [address] FAX [phone] Date: 09/25/2016 CC: ANURAG Alford Caryn E, APRN [address] [place] [address] documented in this encounter Discharge Instructions * [...] Alirio Esparza and/or the Cardiac Surgery Physician Occupational Therapist Rehab Manager Team may be reached at . Antibiotic prophylaxis: You will need to take antibiotics prior to many invasive tests and treatments, such as dental cleaning, which should be done every 6 months. Your primary care physician or your dentist can prescribe this medication. Please refer to the card with the [place] Heart Association Guidelines for more information. You have been provided with 3 copies of this card. Keep one for your self. Give one to your primary care physician and one to your dentist. Please refer to the [place] Heart Association Guidelines for more information. Good [...] Dr. Alirio Jones. You may use a Warren Track or treadmill but avoid any pulling [...] should resume a low fat, low cholesterol, [place] Heart Association Diet. Driving: No driving until [...] with your appointment information. Cardiac Rehabilitation: Purnima Magalie Gallegol was seen today regarding participation in the outpatient Phase 2 Cardiac Rehabilitation at [facility]. The patient agrees to a referral to [...] (Take 5mg every 4 hours for pain 6-05/11 as needed.) for up to 30 days. [...] PM EST Cardiac Surgery Progress Note: ID: [id number] S/p AVR, patch aortoplasty POD#2. PMH of [...] completed shifts: In: 1993 [P.O.:1970; I.V.:24] Out: 1105 [Urine:1105] I/O this [...] Gas) No results found for: PHART, PO2ART, [id number] Assessment/Plan: TPW out this am. (+) BM. [...] Signed: Crispin Aranda PA-C 09/24/2016 Team pager: [phone] after 5pm [facility] Section of Cardiac Surgery * Leonor Henson, MAGNETIC RESONANCE TECHNOLOGIST - 09/23/2016 10:48 AM EST Cardiac Surgery Progress Note: ID: [id number] s/p AVR, patch aortoplasty POD#2. PMH of [...] Gas) No results found for: PHART, PO2ART, [id number] Assessment/Plan: s/p AVR, patch aortoplasty POD#2. PMH of Neutropenia, HLD, HTN, Depression, obesity, . Transferred from [facility] yesterday and doing well. Pathway. Will [...] Surgeon on rounds. Signed: Leonor Henson APRN [facility] Section of Cardiac Surgery Date: 09/23/2016 * Nico Palacios PA - 09/22/2016 9:56 AM EST Cardiac Surgery Progress Note: ID: [id number] s/p AVR, patch aortoplasty POD#1. PMH of [...] NT, ND, soft. Ext: Moves all extremities. [place], well perfused. Incisions: C/D/I Tubes/Lines/Drains: PIV, leanna, [...] Attending Surgeon on rounds. Signed: EKATERINA KIM [facility] Section of Cardiac Surgery Date: 09/22/2016 [...] with outpatient services Lalitha Cohen SPTA Pager: [phone] Inpatient Physical Therapy Patient status, treatment interventions, and goals discussed with student. I am in agreement with all details and associated flowsheet rows as documented and was present for all aspects of the patient treatment session. Nerykatrina Jaramillo, [facility] Pager [phone] Problem: Acute Rehab Services Goal & Intervention Plan Goal: Bed Mobility Goal Stand Alone Therapy Goal Outcome: Ongoing (Interventions Implemented as Appropriate) 09/22/16 16109/25/16 09 Bed Mobility Goal Bed Mobility Goal, Time to Achieve 4 days -- Bed Mobility Goal, Activity Type scoot/bridge;supine to sit/sit to supine -- Bed Mobility Goal, Spencer Level independent -- Bed Mobility Goal, Additional Goal able to abide sternal precautions during transfers -- Bed Mobility Goal, Outcome Achieved -- goal partially met Bed Mobility Goal, Reason Goal Not Met -- (progressing) Goal: Gait Training Goal Stand Alone Therapy Goal Outcome: Outcome (s) achieved Date Met: 09/25/16 09/22/16161009/25/16946 Gait Training Goal Gait Training Goal, Date Established 09/22/16 -- Gait Training Goal, Time to Achieve 4 days -- Gait Training Goal, Spencer Level independent -- Gait Training Goal, Distance [...] with assist, home with home health Lalitha Cohen [facility] Pager: [phone] Inpatient Physical Therapy Patient status, treatment interventions, and goals discussed with student. I am in agreement with all details and associated flowsheet rows as documented and was present for all aspects of the patient treatment session. Nery Jaramillo, [facility] Pager [phone] Problem: Acute Rehab Services Goal & Intervention Plan Goal: Bed Mobility Goal Stand Alone Therapy Goal Outcome: Ongoing (Interventions Implemented as Appropriate) 09/22/16 16109/23/16 1412 Bed Mobility Goal Bed Mobility Goal, Time to Achieve 4 days -- Bed Mobility Goal, Activity Type scoot/bridge;supine to sit/sit to supine -- Bed Mobility Goal, Spencer Level independent -- Bed Mobility Goal, Additional Goal able to abide sternal precautions during transfers -- Bed Mobility Goal, Outcome Achieved -- goal ongoing Bed Mobility Goal, Reason Goal Not Met -- (progressing) Goal: Gait Training Goal Stand Alone Therapy Goal Outcome: Ongoing (Interventions Implemented as Appropriate) 09/22/16 16109/23/16 1412 Gait Training Goal Gait Training Goal, Date Established 09/22/16 -- Gait Training Goal, Time to Achieve 4 days -- Gait Training Goal, Spencer Level independent -- Gait Training Goal, Distance [...] days -- Transfer Training Goal, Activity Type vdw-sq-qbaub/xwueu-yt-hpf;pts-xt-tjfrk/wgrbu-qq-skm -- Transfer Train Goal, Spencer Level independent -- Transfer Training Goal, Additional Goal abides sternal precautions -- Transfer Training Goal, Outcome -- goal met * Consult Note - Jana Crenshaw RN - 09/23/2016 9:41 AM EST [facility] [place] Purnima Thacker was seen today regarding participation in the outpatient Phase 2 Cardiac Rehabilitation at [facility]. The patient agrees to a referral to [...] Another Service: (cardiac rehab) NICOLE HERNANDEZ, PT Pager:[phone] Inpatient Physical Therapy Problem: Acute Rehab Services Goal & Intervention Plan Goal: Bed Mobility Goal Stand Alone Therapy Goal Outcome: Ongoing (Interventions Implemented as Appropriate) 09/22/16 1611 Bed Mobility Goal Bed Mobility Goal, Time to Achieve 4 days Bed Mobility Goal, Activity Type scoot/bridge;supine to sit/sit to supine Bed Mobility Goal, Spencer Level independent Bed Mobility Goal, Additional Goal able to abide sternal precautions during transfers Goal: Gait Training Goal Stand Alone Therapy Goal Outcome: Ongoing (Interventions Implemented as Appropriate) 09/22/16 1611 Gait Training Goal Gait Training Goal, Date Established 09/22/16 Gait Training Goal, Time to Achieve 4 days Gait Training Goal, Spencer Level independent Gait Training Goal, Distance to Achieve ascend and descends 2 steps independently Goal: Goal Transfer Training Stand Alone Therapy Goal Outcome: Ongoing (Interventions Implemented as Appropriate) 09/22/16 1611 Goal Transfer Training Transfer Training Goal, Time to Achieve 4 days Transfer Training Goal, Activity Type ycm-vu-wjioe/xhtuv-qt-clo;bje-ah-fcxse/wtwmu-qk-lbu Transfer Train Goal, Spencer Level independent Transfer Training Goal, Additional Goal [...] of completing AD's at home, chooses her nnzwdb-dz-hhm, Martha Thacker (home) for her [facility], 2nd choice in friend, Nitesh Leroy [place], [place] Current Coping/Education/Information Needs: patient sitting up in recliner, awake, alert, calmly answers questions appropriately, demonstrates understanding of her current health situation. She will be moving from [facility] to [facility] later today. Current Functional Ability: 1 assist, IV pole Functional Status Prior to Admission: independent physically w/ADL's Home Environment: lives alone in single family home, 2 steps to enter, one level living, woodstove in basement but has back-up heating system so she doesn't need to load woodstove Social & Family Supports/Community Resources: support from her two brothers who live close by, [place], and her lfylwa-ye-chz Martha Thacker who she has chosen to be her DPOAH. Also has a friend Nitesh Leroy who lives in [place], [place], also her DPOAH choice. Behavioral Health History: none on file in e[facility] Substance Use/Abuse: none on file in e[facility] Other Pertinent/Service Specific Information: none Health/Prescription Coverage: Primary Insurance: [employer] Secondary Insurance: none Prescription Coverage: yes, per patient no issues Preferred Pharmacy: ?? Other: none Primary Care Provider: Deborah Quiroga, MAGNETIC RESONANCE TECHNOLOGIST [phone] Patient/Caregiver Goals of Treatment: per medical team recommendations at discharge for CT surgery Potential Needs for Transition of Care: Rehab/SNF: TBD Home Health: TBD DME: no Dialysis: no Community Resources: non3 Transportation: ride home with a friend Other: none Anticipated Barriers to Discharge/Special Considerations: none anticipated at this time Plan: patient will need VNA services at discharge. The patient/technical account representative has been provided a list of Home Health Agencies/DME vendors which servetheir preferred geographic area. A letter describing our affiliations was reviewed with them and they were educated about their right to choose where referrals are placed. Patient requests referral to: [facility] [employer]. PHONE: [phone] FAX: [phone] Expected date of discharge: Fri/Sat? CM called VNA to confirm referral, talked with VALDO Bunn/intake who stated she was familiar w/patient & would monitor her progress through curaspan. Referral routed to the Textile Knitter for matching with agency/vendor and to provide any required information. A member of the Care Management team will continue to monitor progress, follow for continuity of care and assist with transition of care planning. Amanda Moreno RN Pager: [phone] * Op Note - Alirio Esparza MD - 09/21/2016 12:53 PM EST 09/23/2016 Purnima Thacker 1955 [id number] Preoperative Diagnosis: Symptomatic aortic stenosis Postoperative Diagnosis: Symptomatic aortic stenosis Procedure: Aortic valve replacement: Bovine Pericardial 25 mm Surgeon: Alirio Esparza M.D. Occupational Therapist Rehab Manager: Philip BALL Anesthesia: General endotracheal anesthesia Drains: [...] Operative Note Patient Name: Purnima Thacker : [id number] MR#: [id number] Case Date: 09/21/2016 Surgeon: Surgeon(s) and Role: * Alirio Esparza MD - Primary * Nico Palacios PA - Physician Occupational Therapist Rehab Manager Preoperative diagnosis: Postoperative diagnosis: Procedure(s) (LRB): @REPLACE [...] PM EDT Office Visit Dermatology at [place] [address] [place] [address] Marek Bonilla MD [address], [place] [address] Scheduled Orders Name Type Priority Associated Diagnoses [...] IMPLANTABLE DEVICES SCAN 09/26/2016 12:00 AM EST ASSORTMENT PLANNER SCAN 09/26/2016 12:00 AM EST POTASSIUM Routine [...] SCAN EXT O RDR/RSLT * SCAN DOC: ASSORTMENT PLANNER (09/26/2016 12:00 AM EST) Anatomical Region Laterality Modality Other Narrative 09/26/2016 12:00 AM EST Ordered by an unspecified provider. Scanning Provider MEDIA MGR SCAN EXT O RDR/RSLT * Potassium (09/25/2016 4:32 AM EST) Pathologist [facility] Potassium 4.4 3.5 - 5.0 mmol/L [facility] Lab Alirio Esparza MD CHEMISTRY ORDERABLE S [facility] [place] [address] * (ABNORMAL) Differential, Automated (09/24/2016 9:56 AM EST) [facility] Neutrophil % 76.8 % [facility] Neutrophil Absolute 7.79(H) 1.70 - 6.10 x10(3)/mc L [facility] Lymph % 11.1 % [facility] Lymphocytes Abs 1.1 0.9 - 3.2 x10(3)/mc L [facility] Monocyte % 8.5 % [facility] Monocyte Abs 0.9 0.3 - 0.9 x10(3)/mc L [facility] Eos % 0.5 % [facility] Eosinophils Abs 0.0 0.0 - 0.4 x10(3)/mc L [facility] Basophil % 0.2 % [facility] Baso Absolute 0.0 0.0 - 0.1 x10(3)/mc L [facility] Immature Gran % 2.90 % [facility] Comment: Immature granulocytes(IG's)percentage and absolute count will include metamyelocytes, myelocytes, and promyelocytes. Blood smears from CBCs yielding IG's will be scanned manually for concordance. If this scan disagrees with the automated IG or if promyelocytes are noted, a manual differential will be performed. Immature Gran Absolute 0.29(H) 0.00 - 0.04 x10(3)/mc L [facility] Blood specimen (specimen) 09/24/2016 9:56 AM EST 09/24/2016 10:04 AM EST Narrative Resulting Agency Comment Spec In Lab Alirio Esparza MD HEMATOLOGY ORDERABL ES [facility] [place] [address] * (ABNORMAL) Hemogram (09/24/2016 9:56 AM EST) White Blood Cell 10.1(H) 4.0 - 9.5 x10(3)/mc L [facility] Red Blood Cell 2.87(L) 4.00 - 5.21 x10(6)/mc L [facility] Hemoglobin 9.4(L) 11.7 - 15.5 gm/dL [facility] Hematocrit 28.3(L) 35.7 - 45.8 % [facility] Mean Cell Volume 98.6(H) 82.6 - 94.4 fL [facility] Mean Cell Hemoglobin 32.8(H) 27.1 - 32.0 pg [facility] Mean Cell Hemoglobin Concentration 33.2 31.7 - 35.0 gm/dL [facility] Platelet 141(L) 145 - 357 x10(3)/mc L [facility] RDW Standard Deviation 45.0 37.0 - 46.0 fL [facility] RDW coefficient of variation 12.6 11.5 - 14.1 % [facility] Mean Platelet Volume 9.4 7.6 - 12.9 fL [facility] NRBC% auto 1.1 % [facility] NRBC Absolute 0.110(H) 0.000 - 0.000 x10(3)/mc L [facility] Blood specimen (specimen) 09/24/2016 9:56 AM EST 09/24/2016 10:04 AM EST Narrative Resulting Agency Comment Spec In Lab Alirio Esparza MD HEMATOLOGY ORDERABL ES [facility] [place] [address] * (ABNORMAL) Basic Metabolic Panel (non-fasting) (09/24/2016 9:56 AM EST) Glucose 111 65 - 199 mg/dL [facility] Comment:Diabetes: >=200 mg/d L plus symptoms Blood Urea Nitrogen 23(H) 8 - 18 mg/dL [facility] Comment:result rechecked-ART Creatinine 0.89 0.70 - 1.20 mg/dL [facility] Comment: Please note that the pediatric reference intervals supplied above were not validated at [facility]. Results from pediatric patients should be interpreted in conjunction to the patient's age, height and muscle mass. Sodium 138 135 - 145 mmol/L [facility] Potassium 4.2 3.5 - 5.0 mmol/L [facility] Comment: Please note: ??Patients with WBC >100,000 may have falsely elevated Potassium levels. ??For accurate Potassium quantification in these patients send serum separator tube (gold top) for subsequent determinations. ??Contact the Clinical Chemistry Laboratory if there are any questions. Chloride 98 98 - 107 mmol/L [facility] Carbon Dioxide 26 22 - 31 mmol/L [facility] Anion Gap 14 5 - 15 mmol/L [facility] Calcium 9.1 8.5 - 10.5 mg/dL [facility] Est Glomerular Filtration Rate >60 >=60 [facility] [...] the following links into your internet browser. [email or web address] Blood specimen (specimen) 09/24/2016 9:56 AM EST 09/24/2016 10:04 AM EST Narrative Resulting Agency Comment Spec In Lab Alirio Esparza MD CHEMISTRY ORDERABLE S [facility] [place] [address] * XR Chest PA & Lateral (Generic) [...] EST) Potassium 4.5 3.5 - 5.0 mmol/L [facility] [...] MD CHEMISTRY ORDERABLE S Performing Organization Address [facility] Co de Phone Number [facility] [place] [address] * POCT Glucose (09/22/2016 8:17 AM EST) Glucose, POC 131 65 - 199 mg/dL [facility] Comment: Supplemental ranges: <140 mg/dL before meals <180 mg/dL all other times of the day Blood specimen (specimen) 09/22/2016 8:17 AM EST 09/22/2016 8:17 AM EST Alirio Esparza MD POINT OF CARE TEST ORDERABLES Performing Organization Address [facility] [facility]/ZIP Co de Phone Number [facility] [place] [address] * POCT Glucose (09/22/2016 4:01 AM EST) Glucose, POC 135 65 - 199 mg/dL [facility] Comment: Supplemental ranges: <140 mg/dL before meals <180 mg/dL all other times of the day Blood specimen (specimen) 09/22/2016 4:01 AM EST 09/22/2016 4:01 AM EST Alirio Esparza MD POINT OF CARE TEST ORDERABLES [facility] [place] [address] * Scan, Peripheral Blood (09/22/2016 4:00 AM EST) Plat estimate Normal [facility] RBC Morphology Abnormal [facility] Macrocyte 1-5 /HPF [facility] Plat, Giant Less than 1 /HPF [facility] Blood specimen (specimen) 09/22/2016 4:00 AM EST 09/22/2016 4:34 AM EST Narrative Resulting Agency Comment Spec In Lab Alirio Esparza MD HEMATOLOGY ORDERABL ES Performing Organization Address [facility] Co de Phone Number [facility] [place] [address] * Electrolytes panel (09/22/2016 4:00 AM EST) Pathologist [facility] [place] Sodium 145 135 - 145 mmol/L [facility] Potassium 4.4 3.5 - 5.0 mmol/L [facility] Comment: Please note: ??Patients with WBC >100,000 may have falsely elevated Potassium levels. ??For accurate Potassium quantification in these patients send serum separator tube (gold top) for subsequent determinations. ??Contact the Clinical Chemistry Laboratory if there are any questions. Chloride 107 98 - 107 mmol/L [facility] Carbon Dioxide 24 22 - 31 mmol/L [facility] Anion Gap 14 5 - 15 mmol/L [facility] Blood specimen (specimen) Venous Draw / Unknown 09/22/2016 4:00 AM EST 09/22/2016 4:34 AM EST Narrative Resulting Agency Comment Spec In Lab Alirio Esparza MD CHEMISTRY ORDERABLE S Performing Organization Address [facility] Co de Phone Number [facility] [place] [address] * (ABNORMAL) Differential, Automated (09/22/2016 4:00 AM EST) Pathologist [facility] [place] Neutrophil % 70.9 % [facility] Neutrophil Absolute 5.33 1.70 - 6.10 x10(3)/[facility] Lymph % 9.1 % [facility] Lymphocytes Abs 0.7(L) 0.9 - 3.2 x10(3)/[facility] Monocyte % 18.0 % [facility] Monocyte Abs 1.4(H) 0.3 - 0.9 x10(3)/[facility] Eos % 0.0 % [facility] Eosinophils Abs 0.0 0.0 - 0.4 x10(3)/[facility] Basophil % 0.1 % [facility] Baso Absolute 0.0 0.0 - 0.1 x10(3)/[facility] Immature Gran % 1.90 % [facility] Comment: Immature granulocytes(IG's)percentage and absolute count will include metamyelocytes, myelocytes, and promyelocytes. Blood smears from CBCs yielding IG's will be scanned manually for concordance. If this scan disagrees with the automated IG or if promyelocytes are noted, a manual differential will be performed. Immature Gran Absolute 0.14(H) 0.00 - 0.04 x10(3)/[facility] Blood specimen (specimen) 09/22/2016 4:00 AM EST 09/22/2016 4:34 AM EST Narrative Resulting Agency Comment Spec In Lab Alirio Esparza MD HEMATOLOGY ORDERABL ES [facility] [place] [address] * (ABNORMAL) Hemogram (09/22/2016 4:00 AM EST) White Blood Cell 7.5 4.0 - 9.5 x10(3)/[facility] Red Blood Cell 2.93(L) 4.00 - 5.21 x10(6)/[facility] Hemoglobin 9.2(L) 11.7 - 15.5 gm/dL [facility] Hematocrit 28.0(L) 35.7 - 45.8 % [facility] Mean Cell Volume 95.6(H) 82.6 - 94.4 fL [facility] Mean Cell Hemoglobin 31.4 27.1 - 32.0 pg [facility] Mean Cell Hemoglobin Concentration 32.9 31.7 - 35.0 gm/dL [facility] Platelet 161 145 - 357 x10(3)/mc L [facility] RDW Standard Deviation 44.0 37.0 - 46.0 fL [facility] RDW coefficient of variation 12.6 11.5 - 14.1 % [facility] Mean Platelet Volume 9.3 7.6 - 12.9 fL [facility] NRBC% auto 0.3 % [facility] NRBC Absolute 0.020(H) 0.000 - 0.000 x10(3)/mc L [facility] Blood specimen (specimen) 09/22/2016 4:00 AM EST 09/22/2016 4:34 AM EST Narrative Resulting Agency Comment Spec In Lab Alirio Esparza MD HEMATOLOGY ORDERABL ES [facility] [place] [address] * (ABNORMAL) Cardiac Enzymes (09/22/2016 4:00 AM EST) Troponin-T 0.13(H) <=0.03 ng/mL [facility] Comment: 0.03 ng/mL: Represents the 99th percentile upper reference limit for normals. >0.03 ng/mL: Elevated cardiac troponin T level indicative of myocardial damage. Diagnosis of acute, evolving or recent [place] requires a typical rise and gradual fall [...] consensus document of the Joint Society of Cardiology/[place] College of Cardiology Committee for the redefinition of myocardial infarction. ??Journal of the [place] College of Cardiology 2000; 36: 959-969] Creatine Kinase 338(H) 0 - 160 unit/L [facility] Blood specimen (specimen) 09/22/2016 4:00 AM EST 09/22/2016 4:34 AM EST Narrative Resulting Agency Comment Spec In Lab Alirio Esparza MD CHEMISTRY ORDERABLE S Performing Organization Address City/State/[facility] Co de Phone Number [facility] [place] [address] * (ABNORMAL) Glucose, fasting (09/22/2016 4:00 AM EST) Glucose Fasting 137(H) 65 - 99 mg/dL [facility] Comment: ?Fasting* Glucose [...] of Diabetes Mellitus, Position Statement from the [place] Diabetes Association. ??Diabetes Care, Volume 33, Supplement 1, Aug 2009 Blood specimen (specimen) 09/22/2016 4:00 AM EST 09/22/2016 4:34 AM EST Narrative Resulting Agency Comment Spec In Lab Alirio Esparza MD CHEMISTRY ORDERABLE S Performing Organization Address City/[facility]/ZIP Co de Phone Number [facility] [place] [address] * (ABNORMAL) Creatinine (09/22/2016 4:00 AM EST) Creatinine 0.69(L) 0.70 - 1.20 mg/dL [facility] Comment: Please note that the pediatric reference intervals supplied above were not validated at [facility]. Results from pediatric patients should be interpreted in conjunction to the patient's age, height and muscle mass. Est Glomerular Filtration Rate >60 >=60 [facility] [...] the following links into your internet browser. [email or web address] Blood specimen (specimen) 09/22/2016 4:00 AM EST 09/22/2016 4:34 AM EST Narrative Resulting Agency Comment Spec In Lab Alirio Esparza MD CHEMISTRY ORDERABLE S Performing Organization Address [facility]/ZIP Co de Phone Number [facility] [place] [address] * BUN (09/22/2016 4:00 AM EST) Blood Urea Nitrogen 10 8 - 18 mg/dL [facility] Blood specimen (specimen) 09/22/2016 4:00 AM EST 09/22/2016 4:34 AM EST Narrative Resulting Agency Comment Spec In Lab Alirio Esparza MD CHEMISTRY ORDERABLE S Performing Organization Address City/[facility]/ZIP Co de Phone Number [facility] [place] [address] * POCT Glucose (09/21/2016 9:59 PM EST) Glucose, POC 146 65 - 199 mg/dL [facility] Comment: Supplemental ranges: <140 mg/dL before meals <180 mg/dL all other times of the day Blood specimen (specimen) 09/21/2016 9:59 PM EST 09/21/2016 9:59 PM EST Alirio Esparza MD POINT OF CARE TEST ORDERABLES [facility] [place] [address] * POCT Glucose (09/21/2016 7:26 PM EST) Glucose, POC 152 65 - 199 mg/dL [facility] Comment: Supplemental ranges: <140 mg/dL before meals <180 mg/dL all other times of the day Blood specimen (specimen) 09/21/2016 7:26 PM EST 09/21/2016 7:26 PM EST Alirio Esparza MD POINT OF CARE TEST ORDERABLES [facility] [place] [address] * POCT Glucose (09/21/2016 6:00 PM EST) Glucose, POC 146 65 - 199 mg/dL [facility] Comment: Supplemental ranges: <140 mg/dL before meals <180 mg/dL all other times of the day Blood specimen (specimen) 09/21/2016 6:00 PM EST 09/21/2016 6:00 PM EST Alirio Esparza MD POINT OF CARE TEST ORDERABLES [facility] [place] [address] * (ABNORMAL) BLOOD GAS 2 ARTERIAL (09/21/2016 4:42 PM EST) pH, Arterial 7.35(L) 7.35 - 7.45 [facility] PCO2, Arterial 48(H) 35 - 45 mmHg [facility] PO2, Arterial 108(H) 85 - 104 mmHg [facility] Bicarbonate, Arterial 26.0 20.0 - 26.0 mmol/L [facility] Base Excess, Arterial 0.5 -3.0 - 3.0 mmol/L [facility] Hgb Blood Gas 10.4(L) 11.7 - 15.5 gm/dL [facility] Oxyhemoglobin, Arterial 96.2 94.0 - 97.0 % [facility] Carboxyhemoglob in, Arterial 0.0 % [facility] Comment: Nonsmokers: 0.5-1.5% COHB Smokers: Variable, but usually less than 10% Toxic: 20-30% COHB Lethal: Greater than 60% COHB Methemoglobin, Arterial 0.7 <=1.5 % [facility] Na Whole Blood 139 135 - 145 mmol/L [facility] K Whole Blood 4.2 3.5 - 5.0 mmol/L [facility] Comment: Please note: Patients with WBC >100,000 may have falsely elevated Potassium levels. Contact the Clinical Chemistry Laboratory if there are any questions. ICa Whole Blood 1.13(L) 1.15 - 1.33 mmol/L [facility] Comment: Note: ??Total bilirubin higher than 20 mg/dL may lead to falsely low ionized calcium. CL Whole Blood 106 98 - 107 mmol/L [facility] Gluc Whole Bld 147 65 - 199 mg/dL [facility] Comment:Diabetes: >=200 mg/d L plus symptoms. Lactate WB 1.2 0.5 - 2.2 mmol/L [facility] FIO2 Art 40 % [facility] PF Ratio Art 270 [facility] Blood specimen (specimen) 09/21/2016 4:42 PM EST 09/21/2016 4:42 PM EST Alirio Esparza MD POINT OF CARE TEST ORDERABLES Performing Organization Address [facility] Co de Phone Number [facility] [place] [address] * POCT Glucose (09/21/2016 4:07 PM EST) Glucose, POC 150 65 - 199 mg/dL [facility] Comment: Supplemental ranges: <140 mg/dL before meals <180 mg/dL all other times of the day Blood specimen (specimen) 09/21/2016 4:07 PM EST 09/21/2016 4:07 PM EST Alirio Esparza MD POINT OF CARE TEST ORDERABLES Performing Organization Address [facility] Co de Phone Number [facility] [place] [address] * (ABNORMAL) Hemoglobin (09/21/2016 4:05 PM EST) Hemoglobin 9.9(L) 11.7 - 15.5 gm/dL [facility] Blood specimen (specimen) 09/21/2016 4:05 PM EST 09/21/2016 4:20 PM EST Narrative Resulting Agency Comment Spec In Lab Alirio Esparza MD HEMATOLOGY ORDERABL ES Performing Organization Address [facility] Co de Phone Number [facility] [place] [address] * Potassium (09/21/2016 4:05 PM EST) Potassium 4.6 3.5 - 5.0 mmol/L [facility] MD CHEMISTRY ORDERABLE S Performing Organization Address [facility] Co de Phone Number [facility] [place] [address] * POCT Glucose (09/21/2016 2:52 PM EST) Glucose, POC 117 65 - 199 mg/dL [facility] Comment: Supplemental ranges: <140 mg/dL before meals <180 mg/dL all other times of the day Blood specimen (specimen) 09/21/2016 2:52 PM EST 09/21/2016 2:52 PM EST Alirio Esparza MD POINT OF CARE TEST ORDERABLES Performing Organization Address [facility] Phone Number [facility] [place] [address] * POCT Glucose (09/21/2016 1:51 PM EST) Glucose, POC 108 65 - 199 mg/dL [facility] Comment: Supplemental ranges: <140 mg/dL before meals <180 mg/dL all other times of the day Blood specimen (specimen) 09/21/2016 1:51 PM EST 09/21/2016 1:51 PM EST Alirio Esparza MD POINT OF CARE TEST ORDERABLES Performing Organization Address [facility] Co de Phone Number [facility] [place] [address] * POCT Glucose (09/21/2016 12:54 PM EST) Glucose, POC 128 65 - 199 mg/dL [facility] Comment: Supplemental ranges: <140 mg/dL before meals <180 mg/dL all other times of the day Blood specimen (specimen) 09/21/2016 12:54 PM EST 09/21/2016 12:54 PM EST Alirio Esparza MD POINT OF CARE TEST ORDERABLES Performing Organization Address City/[facility]/ZIP Co de Phone Number [facility] [place] [address] * EKG 12 Lead (09/21/2016 12:26 PM EST) Ventricular rate 87 BPM MUSE SYSTEM Atrial Rate 87 BPM MUSE SYSTEM P-R Interval 256 ms MUSE SYSTEM QRS Duration 90 ms MUSE SYSTEM Q-T Interval 406 ms MUSE SYSTEM QTC Calculated (Bezet) 488 ms MUSE SYSTEM Calculated P Brenton 24 degrees MUSE SYSTEM Calculated R Brent[place] 21 degrees MUSE SYSTEM Calculated T Brenton -5 degrees MUSE SYSTEM INTERPRETATION Sinus rhythm with 1st degree A-V block Nonspecific T wave abnormality Prolonged QT Abnormal ECG When compared with ECG of 19-MAY-2016 11:43, NE interval has increased T wave inversion now evident in inferior and midanterior leads Confirmed by MD ESTES EDWARD ([id number]) on 09/21/2016 1:40:59 PM MUSE SYSTEM 09/21/2016 12:2 6 PM EST 09/21/2016 1:40 PM EST Alirio Esparza MD ECG ORDERABLES Performing Organization Address [facility] Co de Phone Number MUSE SYSTEM [...] course of the esophagus and below the [id number]. There is a right IJ PA catheter [...] the course of theesophagus and below the [id number]. There is a right IJ PA catheter [...] EST) pH, Arterial 7.41 7.35 - 7.45 [facility] PCO2, Arterial 42 35 - 45 mmHg [facility] PO2, Arterial 356(H) 85 - 104 mmHg [facility] Bicarbonate, Arterial 26.2(H) 20.0 - 26.0 mmol/L [facility] Base Excess, Arterial 1.6 -3.0 - 3.0 mmol/L [facility] Hgb Blood Gas 10.7(L) 11.7 - 15.5 gm/dL [facility] Oxyhemoglobin, Arterial 98.1(H) 94.0 - 97.0 % [facility] Carboxyhemoglob in, Arterial 0.3 % [facility] Comment: Nonsmokers: 0.5-1.5% COHB Smokers: Variable, but usually less than 10% Toxic: 20-30% COHB Lethal: Greater than 60% COHB Methemoglobin, Arterial 0.8 <=1.5 % [facility] Na Whole Blood 140 135 - 145 mmol/L [facility] K Whole Blood 3.8 3.5 - 5.0 mmol/L [facility] Comment: Please note: Patients with WBC >100,000 may have falsely elevated Potassium levels. Contact the Clinical Chemistry Laboratory if there are any questions. ICa Whole Blood 1.15(L) 1.15 - 1.33 mmol/L [facility] Comment: Note: ??Total bilirubin higher than 20 mg/dL may lead to falsely low ionized calcium. CL Whole Blood 106 98 - 107 mmol/L [facility] Gluc Whole Bld 135 65 - 199 mg/dL [facility] Comment:Diabetes: >=200 mg/d L plus symptoms. Lactate WB 2.2 0.5 - 2.2 mmol/L [facility] FIO2 Art 100 % [facility] PF Ratio Art 356 [facility] Blood specimen (specimen) 09/21/2016 12:20 PM EST 09/21/2016 12:20 PM EST Alirio Esparza MD POINT OF CARE TEST ORDERABLES Performing Organization Address City/State/[facility] Co de Phone Number [facility] [place] [address] * (ABNORMAL) BLOOD GAS 2 ARTERIAL (09/21/2016 10:54 AM EST) pH, Arterial 7.43 7.35 - 7.45 [facility] PCO2, Arterial 40 35 - 45 mmHg [facility] PO2, Arterial 297(H) 85 - 104 mmHg [facility] Bicarbonate, Arterial 26.0 20.0 - 26.0 mmol/L [facility] Base Excess, Arterial 1.6 -3.0 - 3.0 mmol/L [facility] Hgb Blood Gas 8.6(L) 11.7 - 15.5 gm/dL [facility] Oxyhemoglobin, Arterial 98.6(H) 94.0 - 97.0 % [facility] Carboxyhemoglob in, Arterial 0.5 % [facility] Comment: Nonsmokers: 0.5-1.5% COHB Smokers: Variable, but usually less than 10% Toxic: 20-30% COHB Lethal: Greater than 60% COHB Methemoglobin, Arterial 0.3 <=1.5 % [facility] Na Whole Blood 134(L) 135 - 145 mmol/L [facility] K Whole Blood 4.5 3.5 - 5.0 mmol/L [facility] Comment: Please note: Patients with WBC >100,000 may have falsely elevated Potassium levels. Contact the Clinical Chemistry Laboratory if there are any questions. ICa Whole Blood 1.16 1.15 - 1.33 mmol/L [facility] Comment: Note: ??Total bilirubin higher than 20 mg/dL may lead to falsely low ionized calcium. CL Whole Blood 104 98 - 107 mmol/L [facility] Gluc Whole Bld 240(H) 65 - 199 mg/dL [facility] Comment:Diabetes: >=200 mg/d L plus symptoms. Lactate WB 2.4(H) 0.5 - 2.2 mmol/L [facility] FIO2 Art 95 % [facility] Flow Art 0.7 LPM [facility] PF Ratio Art 313 [facility] Temp Art 36.7 Celsius [facility] Blood specimen (specimen) 09/21/2016 10:54 AM EST 09/21/2016 10:54 AM EST Alirio Esparza MD POINT OF CARE TEST ORDERABLES Performing Organization Address City/State/[facility] Co de Phone Number [facility] [place] [address] * Thrombin time (09/21/2016 10:50 AM EST) Thrombin Time 19 15 - 20 sec [facility] Comment: A prolongation [...] MD HEMATOLOGY ORDERABLE S Performing Organization Address [facility] Co de Phone Number [facility] [place] [address] * Fibrinogen (09/21/2016 10:50 AM EST) Fibrinogen 228 180 - 510 mg/dL [facility] Comment: Called by: JONNATHAN, Read back by: MICHELLE ALEJANDRE_, Date/Time:09/21/16 11:11. A fibrinogen level >100 mg/dL is adequate for hemostasis in most patients without underlying bleeding disorders. Blood specimen (specimen) 09/21/2016 10:50 AM EST 09/21/2016 10:56 AM EST Narrative Resulting Agency Comment Spec In Lab Luis Enrique Quarles MD HEMATOLOGY ORDERABLE S Performing Organization Address [facility] Co de Phone Number [facility] [place] [address] * APTT (09/21/2016 10:50 AM EST) Partial Thromboplastin Time 32 25 - 35 sec [facility] Comment: The recommended therapeutic range for full dose, unfractionated heparin at [facility] is 80 ? [...] MD HEMATOLOGY ORDERABLE S Performing Organization Address City/[facility] Co de Phone Number [facility] [place] [address] * (ABNORMAL) Prothrombin Time (09/21/2016 10:50 AM EST) Prothrombin Time 18.7(H) 12.0 - 15.0 sec [facility] Comment: An [...] International Normalization Ratio 1.5(H) 0.9 - 1.1 [facility] Blood specimen (specimen) 09/21/2016 10:50 AM EST 09/21/2016 10:56 AM EST Narrative Resulting Agency Comment Spec In Lab Luis Enrique Quarles MD HEMATOLOGY ORDERABLE S Performing Organization Address City/State/[facility] Co de Phone Number [facility] [place] [address] * (ABNORMAL) Hemogram (09/21/2016 10:50 AM EST) Pathologist [facility] [place] White Blood Cell 14.7(H) 4.0 - 9.5 x10(3)/mc L [facility] Red Blood Cell 2.40(L) 4.00 - 5.21 x10(6)/mc L [facility] Hemoglobin 7.9(L) 11.7 - 15.5 gm/dL [facility] Hematocrit 23.2(L) 35.7 - 45.8 % [facility] Comment: This result has been called to MICHELLE GRIGSBY by ASHU MORENO on 09 21 2016 at 1102, and has been read back. Mean Cell Volume 96.7(H) 82.6 - 94.4 fL [facility] Mean Cell Hemoglobin 32.9(H) 27.1 - 32.0 pg [facility] Mean Cell Hemoglobin Concentration 34.1 31.7 - 35.0 gm/dL [facility] Platelet 117(L) 145 - 357 x10(3)/mc L [facility] RDW Standard Deviation 42.6 37.0 - 46.0 [facility] RDW coefficient of variation 12.1 11.5 - 14.1 % [facility] Mean Platelet Volume 9.2 7.6 - 12.9 [facility] NRBC% auto 0.1 % [facility] NRBC Absolute 0.020(H) 0.000 - 0.000 x10(3)/mc L [facility] Blood specimen (specimen) 09/21/2016 10:50 AM EST 09/21/2016 10:56 AM EST Narrative Resulting Agency Comment Spec In Lab Luis Enrique Quarles MD HEMATOLOGY ORDERABLE S Performing Organization Address [facility] Co de Phone Number [facility] [place] [address] * Prepare Platelets, Apheresis (09/21/2016 10:30 AM EST) Pathologist [facility] [place] Dispensed? Yes [facility] Blood specimen (specimen) 09/21/2016 10:30 AM EST 09/21/2016 10:28 AM EST Alirio Esparza MD BLOOD BANK PRODUCT ORDERABLES Performing Organization Address [facility] Co sd Phone Number [facility] [place] [address] * (ABNORMAL) BLOOD GAS 2 ARTERIAL (09/21/2016 10:05 AM EST) pH, Arterial 7.33(L) 7.35 - 7.45 [facility] PCO2, Arterial 54(Critic al) 35 - 45 mmHg [facility] Comment:Noted by research instrumentation technician. PO2, Arterial 218(H) 85 - 104 mmHg [facility] Bicarbonate, Arterial 27.9(H) 20.0 - 26.0 mmol/L [facility] Base Excess, Arterial 2.0 -3.0 - 3.0 mmol/L [facility] Hgb Blood Gas 8.6(L) 11.7 - 15.5 gm/dL [facility] Oxyhemoglobin, Arterial 98.4(H) 94.0 - 97.0 % [facility] Carboxyhemoglo bin, Arterial 0.5 % [facility] Comment: Nonsmokers: 0.5-1.5% COHB Smokers: Variable, but usually less than 10% Toxic: 20-30% COHB Lethal: Greater than 60% COHB Methemoglobin, Arterial 0.3 <=1.5 % [facility] Na Whole Blood 129(L) 135 - 145 mmol/L [facility] K Whole Blood 6.2(Criti gabrielle) 3.5 - 5.0 mmol/L [facility] Comment: Noted by research instrumentation technician. Please note: Patients with WBC >100,000 may have falsely elevated Potassium levels. Contact the Clinical Chemistry Laboratory if there are any questions. ICa Whole Blood 0.95(L) 1.15 - 1.33 mmol/L [facility] Comment: Note: ??Total bilirubin higher than 20 mg/dL may lead to falsely low ionized calcium. CL Whole Blood 100 98 - 107 mmol/L [facility] Gluc Whole Bld 289(H) 65 - 199 mg/dL [facility] Comment:Diabetes: >=200 mg/d L plus symptoms. Lactate WB 2.2 0.5 - 2.2 mmol/L [facility] Temp Art 37.0 Celsius [facility] Blood specimen (specimen) 09/21/2016 10:05 AM EST 09/21/2016 10:05 AM EST Alirio Esparza MD POINT OF CARE TEST ORDERABLES [facility] [place] [address] * (ABNORMAL) BLOOD GAS 2 ARTERIAL (09/21/2016 9:44 AM EST) pH, Arterial 7.22(Criti gabrielle) 7.35 - 7.45 [facility] Comment:Noted by research instrumentation technician. PCO2, Arterial 70(Critica l) 35 - 45 mmHg [facility] Comment:Noted by research instrumentation technician. PO2, Arterial 224(H) 85 - 104 mmHg [facility] Bicarbonate, Arterial 27.8(H) 20.0 - 26.0 mmol/L [facility] Base Excess, Arterial 0.0 -3.0 - 3.0 mmol/L [facility] Hgb Blood Gas 8.7(L) 11.7 - 15.5 gm/dL [facility] Oxyhemoglobin, Arterial 98.5(H) 94.0 - 97.0 % [facility] Carboxyhemoglob in, Arterial 0.6 % [facility] Comment: Nonsmokers: 0.5-1.5% COHB Smokers: Variable, but usually less than 10% Toxic: 20-30% COHB Lethal: Greater than 60% COHB Methemoglobin, Arterial 0.3 <=1.5 % [facility] Na Whole Blood 131(L) 135 - 145 mmol/L [facility] K Whole Blood 5.9(H) 3.5 - 5.0 mmol/L [facility] Comment: Please note: Patients with WBC >100,000 may have falsely elevated Potassium levels. Contact the Clinical Chemistry Laboratory if there are any questions. ICa Whole Blood 1.00(L) 1.15 - 1.33 mmol/L [facility] Comment: Note: ??Total bilirubin higher than 20 mg/dL may lead to falsely low ionized calcium. CL Whole Blood 101 98 - 107 mmol/L [facility] Gluc Whole Bld 227(H) 65 - 199 mg/dL [facility] Comment:Diabetes: >=200 mg/d L plus symptoms. Lactate WB 2.1 0.5 - 2.2 mmol/L [facility] Blood specimen (specimen) 09/21/2016 9:44 AM EST 09/21/2016 9:44 AM EST Alirio Esparza MD POINT OF CARE TEST ORDERABLES [facility] [place] [address] * (ABNORMAL) Hemoglobin (09/21/2016 9:42 AM EST) Hemoglobin 7.2(L) 11.7 - 15.5 gm/dL [facility] Blood specimen (specimen) 09/21/2016 9:42 AM EST 09/21/2016 9:51 AM EST Narrative Resulting Agency Comment Spec In Lab Alirio Esparza MD HEMATOLOGY ORDERABL ES Performing Organization Address [facility]/ZIP Co de Phone Number [facility] [place] [address] * Platelet count (09/21/2016 9:42 AM EST) Platelet 159 145 - 357 x10(3)/mc L [facility] Immature Plt % 1.6 0.0 - 7.4 % [facility] Comment: Limitation of the Immature Platelet Fraction (IPF)-May be less reliable when the platelet count is less than 37r453/uL due to statistical imprecision. The IPF value [...] in a decreased state of production. References: [employer] The Clinical Value of the Immature Platelet Fraction (IPF) in Cell Recovery Document Number 10-1143 12/2010 [employer] The Role of the Immature Platelet Fraction (IPF) in the Differential Diagnosis of Thrombocytopenia, Document MKT-[id number] V012/11/13 P012/13 Blood specimen (specimen) 09/21/2016 9:42 AM EST 09/21/2016 9:51 AM EST Narrative Resulting Agency Comment Spec In Lab Alirio Esparza MD HEMATOLOGY ORDERABL ES Performing Organization Address [facility] Co de Phone Number [facility] [place] [address] * (ABNORMAL) Hematocrit (09/21/2016 9:42 AM EST) Hematocrit 21.6(L) 35.7 - 45.8 % [facility] Comment: This result has been called to MICHELLE ALEJANDRE by Serjio Frazier on 09 21 2016 at 0957, and has been read back. Blood specimen (specimen) 09/21/2016 9:42 AM EST 09/21/2016 9:51 AM EST Narrative Resulting Agency Comment Spec In Lab Alirio Esparza MD HEMATOLOGY ORDERABL ES Performing Organization Address [facility] de Phone Number [facility] [place] [address] * Fibrinogen (09/21/2016 9:42 AM EST) Fibrinogen 219 180 - 510 mg/dL [facility] Comment: Called by: JONNATHAN, Read back by: MICHELLE ALEJANDRE_, Date/Time:09/21/16 10:03_. A fibrinogen level >100 mg/dL is adequate for hemostasis in most patients without underlying bleeding disorders. Blood specimen (specimen) 09/21/2016 9:42 AM EST 09/21/2016 9:51 AM EST Narrative Resulting Agency Comment Spec In Lab Alirio Esparza MD HEMATOLOGY ORDERABL ES Performing Organization Address [facility] Co de Phone Number [facility] [place] [address] * (ABNORMAL) BLOOD GAS 2 ARTERIAL (09/21/2016 9:10 AM EST) pH, Arterial 7.36 7.35 - 7.45 [facility] PCO2, Arterial 48(H) 35 - 45 mmHg [facility] PO2, Arterial 295(H) 85 - 104 mmHg [facility] Bicarbonate, Arterial 26.0 20.0 - 26.0 mmol/L [facility] Base Excess, Arterial 0.5 -3.0 - 3.0 mmol/L [facility] Hgb Blood Gas 8.0(L) 11.7 - 15.5 gm/dL [facility] Oxyhemoglobin, Arterial 98.3(H) 94.0 - 97.0 % [facility] Carboxyhemoglob in, Arterial 1.0 % [facility] Comment: Nonsmokers: 0.5-1.5% COHB Smokers: Variable, but usually less than 10% Toxic: 20-30% COHB Lethal: Greater than 60% COHB Methemoglobin, Arterial 0.3 <=1.5 % [facility] Na Whole Blood 135 135 - 145 mmol/L [facility] K Whole Blood 5.4(H) 3.5 - 5.0 mmol/L [facility] Comment: Please note: Patients with WBC >100,000 may have falsely elevated Potassium levels. Contact the Clinical Chemistry Laboratory if there are any questions. ICa Whole Blood 0.93(L) 1.15 - 1.33 mmol/L [facility] Comment: Note: ??Total bilirubin higher than 20 mg/dL may lead to falsely low ionized calcium. CL Whole Blood 102 98 - 107 mmol/L [facility] Gluc Whole Bld 195 65 - 199 mg/dL [facility] Comment:Diabetes: >=200 mg/d L plus symptoms. Lactate WB 1.8 0.5 - 2.2 mmol/L [facility] Temp Art 37.0 Celsius [facility] Blood specimen (specimen) 09/21/2016 9:10 AM EST 09/21/2016 9:10 AM EST Alirio Esparza MD POINT OF CARE TEST ORDERABLES Performing Organization Address City/[facility] Co de Phone Number [facility] [place] [address] * Surgical Pathology Report (09/21/2016 9:09 AM EST) Final Diagnosis [id number] ?Location: 3T The signing pathologist has (i) [...] ?. (R1) ??ADELITA 09/24/2016 9:32 AM EST [facility] AORTIC STRUCTURE / Unknown 09/21/2016 9:09 AM EST 09/21/2016 9:09 AM EST Alirio Esparza MD PATHOLOGY/CYTOLOGY ORDERABLES Performing Organization Address [facility]/ZIP Co de Phone Number [facility] [place] [address] * Specimen to Pathology (surgical or derm) (09/21/2016 9:09 AM EST) AP Specimen 09/21/2016 9:09 AM EST 09/21/2016 9:09 AM EST Narrative [facility] - 09/21/2016 9:09 AM EST Specimen requisition ordered. ??Separate Pathology report to follow Alirio Esparza MD PATHOLOGY/CYTOLOGY ORDERABLES [facility] [place] [address] * (ABNORMAL) BLOOD GAS 2 ARTERIAL (09/21/2016 8:50 AM EST) pH, Arterial 7.41 7.35 - 7.45 [facility] PCO2, Arterial 33(L) 35 - 45 mmHg [facility] PO2, Arterial 348(H) 85 - 104 mmHg [facility] Bicarbonate, Arterial 20.6 20.0 - 26.0 mmol/L [facility] Base Excess, Arterial -4.1(L) -3.0 - 3.0 mmol/L [facility] Hgb Blood Gas 9.5(L) 11.7 - 15.5 gm/dL [facility] Oxyhemoglobin, Arterial 98.8(H) 94.0 - 97.0 % [facility] Carboxyhemoglob in, Arterial 0.3 % [facility] Comment: Nonsmokers: 0.5-1.5% COHB Smokers: Variable, but usually less than 10% Toxic: 20-30% COHB Lethal: Greater than 60% COHB Methemoglobin, Arterial 0.3 <=1.5 % [facility] Na Whole Blood 137 135 - 145 mmol/L [facility] K Whole Blood 4.0 3.5 - 5.0 mmol/L [facility] Comment: Please note: Patients with WBC >100,000 may have falsely elevated Potassium levels. Contact the Clinical Chemistry Laboratory if there are any questions. ICa Whole Blood 1.04(L) 1.15 - 1.33 mmol/L [facility] Comment: Note: ??Total bilirubin higher than 20 mg/dL may lead to falsely low ionized calcium. CL Whole Blood 105 98 - 107 mmol/L [facility] Gluc Whole Bld 93 65 - 199 mg/dL [facility] Comment:Diabetes: >=200 mg/d L plus symptoms. Lactate WB 1.0 0.5 - 2.2 mmol/L [facility] Blood specimen (specimen) 09/21/2016 8:50 AM EST 09/21/2016 8:50 AM EST Alirio Esparza MD POINT OF CARE TEST ORDERABLES [facility] [place] [address] * (ABNORMAL) BLOOD GAS 2 ARTERIAL (09/21/2016 8:18 AM EST) pH, Arterial 7.42 7.35 - 7.45 [facility] PCO2, Arterial 36 35 - 45 mmHg [facility] PO2, Arterial 283(H) 85 - 104 mmHg [facility] Bicarbonate, Arterial 22.8 20.0 - 26.0 mmol/L [facility] Base Excess, Arterial -2.0 -3.0 - 3.0 mmol/L [facility] Hgb Blood Gas 12.6 11.7 - 15.5 gm/dL [facility] Oxyhemoglobin, Arterial 99.0(H) 94.0 - 97.0 % [facility] Carboxyhemoglob in, Arterial 0.6 % [facility] Comment: Nonsmokers: 0.5-1.5% COHB Smokers: Variable, but usually less than 10% Toxic: 20-30% COHB Lethal: Greater than 60% COHB Methemoglobin, Arterial 0.0 <=1.5 % [facility] Na Whole Blood 144 135 - 145 mmol/L [facility] K Whole Blood 4.0 3.5 - 5.0 mmol/L [facility] Comment: Please note: Patients with WBC >100,000 may have falsely elevated Potassium levels. Contact the Clinical Chemistry Laboratory if there are any questions. ICa Whole Blood 1.22 1.15 - 1.33 mmol/L [facility] Comment: Note: ??Total bilirubin higher than 20 mg/dL may lead to falsely low ionized calcium. CL Whole Blood 106 98 - 107 mmol/L [facility] Gluc Whole Bld 102 65 - 199 mg/dL [facility] Comment:Diabetes: >=200 mg/d L plus symptoms. Lactate WB 1.2 0.5 - 2.2 mmol/L [facility] FIO2 Art 95 % [facility] Flow Art 1.1 LPM [facility] PF Ratio Art 298 [facility] Temp Art 35.6 Celsius [facility] Blood specimen (specimen) 09/21/2016 8:18 AM EST 09/21/2016 8:18 AM EST Alirio Esparza MD POINT OF CARE TEST ORDERABLES [facility] [place] [address] * Prepare RBC (09/21/2016 7:05 AM EST) Dispensed? Yes [facility] Blood specimen (specimen) 09/21/2016 7:05 AM EST 09/21/2016 7:02 AM EST Alirio Esparza MD BLOOD BANK PRODUCT ORDERABLES [facility] [place] [address] * POCT Glucose (09/21/2016 6:42 AM EST) Glucose, POC 104 65 - 199 mg/dL [facility] Comment: Supplemental ranges: <140 mg/dL before meals <180 mg/dL all other times of the day Blood specimen (specimen) 09/21/2016 6:42 AM EST 09/21/2016 6:42 AM EST Ailrio Esparza MD POINT OF CARE TEST ORDERABLES [facility] [place] [address] documented in this encounter Visit Diagnoses Diagnosis [...] dose on Wed09/21/16 at 1230, Until Discontinued, [place] teeth, Routine Given 09/25/2016 9:40 AM EST [...] 15 mg, Intravenous, ONCE, 1 dose, On 09/21/16 at 2215, Routine Given 09/21/2016 9:55 PM EST 15 mg ketorolac (TORADOL) injection 15 mg 15 mg, Intravenous, ONCE, 1 dose, On Tu09/22/16 at 0645, Routine Given 09/22/2016 6:35 AM [...] if phenyleprine and/or vasopressin ineffective.Call pager # [phone] if initiated., Routine Rate/Dose Change 09/21/2016 2:27 [...] 2.0 L/min/M2. Maximum volume 2 L. Call house rn for additional fluid orders: pager #[phone]. Rate/Dose Verify 09/22/2016 10:00 AM EST 10 [...] at 0600)1600 (Due - Provider: Kendall Martínez [facility]) aspirin chewable tablet 81 mg(Linked [...] dose on Wed09/21/16 at 1230, Until Discontinued, [place] teeth, Routine 0900 (Not Given - Provider: [...] Discontinued 1301 (Given - Provider: Federico Apple RN)170 (Given - Provider: Federico Apple RN) 0826 [...] 40 mg, Intravenous, DAILY, First dose on 09/21/16 at 1230, Until Discontinued, Reconstitute with 10 mL of normal saline to a concentration of 4 mg/mL and infuse slowly over 2 minutes. , Routine documented in this encounter Care Teams Outbound Supervisor Relationship Specialty Start Date End Date Deborah Quiroga APRN PCP - General Family Medicine 03/24/16 02/04/23 documented as of this encounter
--- OUTSIDE RECORDS SUMMARY | 2024-03-16 14:11 | XMS_ITS | Encounter Summary ---
Author Organization [facility] [place] [address] Care Team Providers Care Student Records Specialist Name Role Phone Deborah Quiroga ANURAG Primary Care Provider [phone] Encounter Details Date Type Department Care Team (Late st Contact Info) Description 12/04/2016 External Results Hematology [place] [address] Teresa Dodson, RN Social History Tobacco Use [...] 4:15 PM EDT Office Visit Dermatology at [place] [address] [place] [phone] Marek Bonilla MD [address], [place] [address] documented as of this encounter Procedures Procedure Name Priority Date/Time Associated Diagnosis Comments CBC (WITH DIFF) Routine 12/03/2016 11:35 AM EDT COMPREHENSIVE METABOLIC PANEL Routine 12/03/2016 11:35 AM EDT documented in this encounter Results * (ABNORMAL) Comprehensive metabolic panel (non-fasting) (12/03/2016 11:35 AM EDT) Glucose 85(Roller Leveler Operator al Lab) Blood Urea Nitrogen 11(Roller Leveler Operator al Lab) Creatinine 0.93(Exte rnal Lab) Sodium 140(Exter nal Lab) Potassium 4.2(Exter nal Lab) Chloride 104(Exter nal Lab) Calcium 10.0(Exte rnal Lab) Protein, Total 8.1(Exter nal Lab) Albumin 3.5(Exter nal Lab) Bilirubin, Total 0.25(Exte rnal Lab) Alkaline Phosphatase 96(Roller Leveler Operator al Lab) Aspartate Aminotransferase 18(Roller Leveler Operator al Lab) Alanine Aminotransferase 21(Roller Leveler Operator al Lab) Blood specimen (specimen) 12/03/2016 11:35 AM EDT Historical Provider CHEMISTRY ORDERAB LES * (ABNORMAL) CBC (with Diff) (12/03/2016 11:35 AM EDT) White Blood Cell 1.61(EXTER NAL/ABN) 4.4 - 10.8 Hemoglobin 13.0(Exter nal Lab) Hematocrit 39.8(Exter nal Lab) Platelet 248(Roller Leveler Operator al Lab) ANC 0.5(HONEY PROCESSOR AL/ABN) Blood specimen (specimen) 12/03/2016 11:35 AM EDT Historical Provider HEMATOLOGY ORDERA BLES documented in this encounter Visit Diagnoses Not on filedocumented in this encounter Care Teams Student Records Specialist Relationship Specialty Start Date End Date Deborah Quiroga APRN PCP - General Family Medicine 03/24/16 02/04/23 documented as of this encounter
--- OUTSIDE RECORDS SUMMARY | 2024-03-16 14:11 | XMS_ITS | Encounter Summary ---
[place] [address] Care Team Providers Care Customer Experience Consultant Name Role Phone Junaid, Deborah Shields APRN Primary Care Provider [phone] Encounter Details Date Type Department Care Team (Late st Contact Info) Description 10/20/2016 11:20 AM EDT Office Visit [place] [phone] Alirio Esparza MD S/P AVR Social History Tobacco Use Types [...] all of her postoperative tests done at [facility]. Her echo shows a well-seated valve. Her EF, for some reason, was read as in the 45% to 50% range. She had a normal EF to start. I think that will need to be repeated at [facility]. She has no perivalve leak. Her [...] should continue to see Dr. Burrell, her table assembler metal at [facility]. cc: Dr. Burrell documented in this encounter Plan of Treatment Upcoming Encounters Date Type Department Care Team (Late st Contact Info) Description 03/01/2025 4:15 PM EDT Office Visit Dermatology at [place] [address] [place] [phone] Marek Bonilla MD [address] [place] [address] documented as of this encounter Visit Diagnoses Diagnosis S/P AVR Heart valve replaced by other means documented in this encounter Care Teams Customer Experience Consultant Relationship Specialty Start Date End Date Deborah Quiroga APRN PCP - General Family Medicine 03/24/16 02/04/23 documented as of this encounter
--- OUTSIDE RECORDS SUMMARY | 2024-03-16 14:11 | XMS_ITS | Encounter Summary ---
Author Organization [facility] Address [facility] [place] [address] Care Team Providers Care Microsoft Dynamics Developer Name Role Phone Deborah Quiroga ANURAG Primary Care Provider [phone] Encounter Details Date Type Department Care Team (Late Contact Info) Description 02/07/2020 Telephone Hematology [place] [phone] Ellen Rios RN Social History Tobacco Use [...] 02/07/2020 12:59 PM EDT Message received from confidential secretary: Injection/Infusion Referral Services to be provided for pt are: CBC only at [facility]- Pt will go by 02/27 Orders faxed to [phone]). Spoke with pt. She will call [facility] directly to schedule a time that works for her. documented in this encounter Plan of Treatment Upcoming Encounters Date Type Department Care Team (Late Contact Info) Description 03/01/2025 4:15 PM EDT Office Visit Dermatology at [address] [phone] Marek Bonilla MD [address], [place] [address] documented as of this encounter Visit Diagnoses Not on filedocumented in this encounter Care Teams Microsoft Dynamics Developer Relationship Specialty Start Date End Date Deborah Quiroga APRN PCP - General Family Medicine 03/24/16 02/04/23 documented as of this encounter
--- OUTSIDE RECORDS SUMMARY | 2024-03-16 14:11 | XMS_ITS | Encounter Summary ---
[place] [address] Care Team Providers Care Sales Support Technician Name Role Phone Ashley Quirogan Cornelius ANURAG Primary Care Provider [phone] Reason for Visit * Reason Comments Skin Check Encounter Details Date Type Department Care Team (Late st Contact Info) Description 11/11/2020 10:45 AM EDT Office Visit Dermatology at [address] [place] [phone] Marek Bonilla MD [address] [facility], [address] [place] [place], [place] [id number] Rosacea; Acrochordon Social History Tobacco Use Types [...] Discussed the possibility of getting this through [facility] or from the [facility] if necessary. She has not yet [...] 4:15 PM EDT Office Visit Dermatology at [place] [address] [place] [address] Marek Bonilla MD [address] [facility], [place] [address] documented as of this encounter Visit Diagnoses Diagnosis Rosacea Acrochordon Unspecified hypertrophic and atrophic condition of skin documented in this encounter Care Teams Sales Support Technician Relationship Specialty Start Date End Date Deborah Quiroga APRN PCP - General Family Medicine 03/24/16 02/04/23 documented as of this encounter
--- OUTSIDE RECORDS SUMMARY | 2024-03-16 14:11 | XMS_ITS | Encounter Summary ---
Author Organization [facility] Address [facility] [place] [address] Care Team Providers Care It Risk And Assurance Senior Manager Name Role Phone Junaid Deborah Shields APRN Primary Care Provider [phone] Reason for Visit * Reason Comments Schedule Office Case Pain right leg Encounter Details Date Type Department Care Team (Late st Contact Info) Description 12/11/2016 9:00 AM EDT Office Visit [place] [address] Markel Borjas MD [facility] [address] HEMATOLOGY [place] [address] Neutropenia, unspecified type Social History Tobacco Use [...] 12/11/2016 9:00 AM EDT Hematology Outpatient Clinic [facility] Hematology Outpatient Consult Note CC: 60 [...] TOUCH PREP, CLOT SECTION, CORE ??BIOPSY); [OSR# [id number], COLLECTED 06/23/2016, 19 SLIDES]: ?1. 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 Extremities: No edema. Labs: Hgb= 13 Mfor=785 ANC= 0.5 Imaging As above - reviewed [...] 4:15 PM EDT Office Visit Dermatology at [place] [address] [place] [address] Marek Bonilla MD [address] [facility], [place] [address] documented as of this encounter Results * (ABNORMAL) CBC (with Diff) (06/11/2017 1:19 PM EST) Pathologist [facility] White Blood Cell 2.28(EXTER NAL/ABN) 4.4 - [...] documented in this encounter Care Teams It Risk And Assurance Senior Manager Relationship Specialty Start Date End Date Deborah Quiroga, DRYING OVEN ATTENDANT PCP - General Family Medicine 03/24/16 02/04/23 documented as of this encounter
--- OUTSIDE RECORDS SUMMARY | 2024-03-16 14:11 | XMS_ITS | Encounter Summary ---
Author Organization [facility] Address [facility] [place] [address] Care Team Providers Care Mechanical Ordnance Assembler Name Role Phone Deborah Quiroga APRN Primary Care Provider [phone] Encounter Details Date Type Department Care Team (Late st Contact Info) Description 02/06/2020 Orders Only Hematology [place] [address] Markel Borjas MD [facility] [address] [place] [address] Neutropenia, unspecified type Social History Tobacco Use [...] 4:15 PM EDT Office Visit Dermatology at [place] [address] [place] [phone] Marek Bonilla MD [address], [place] [address] documented as of this encounter Visit Diagnoses Diagnosis Neutropenia, unspecified type documented in this encounter Care Teams Mechanical Ordnance Assembler Relationship Specialty Start Date End Date Deborah Quiroga APRN PCP - General Family Medicine 03/24/16 02/04/23 documented as of this encounter
--- OUTSIDE RECORDS SUMMARY | 2024-03-16 14:11 | XMS_ITS | Encounter Summary ---
Author Organization [facility] [place] [address] Care Team Providers Care Tractor Expert Name Role Phone Deborah Quiroga ANURAG Primary Care Provider [phone] Reason for Visit * Reason Onset Date Comments Results 12/03/2016 Encounter Details Date Type Department Care Team (Late Contact Info) Description 12/03/2016 Telephone Hematology [place] [address] Yudith Valentine RN Results Social History Tobacco [...] EDT RN received call from Maddy at [facility] reporting critical WBC at 1.61, and ANC of 0.5. She will fax the full results to this office for medical reviewer notified DR Borjas of above results documented in this encounter Plan of Treatment Upcoming Encounters Date Type Department Care Team (Late st Contact Info) Description 03/01/2025 4:15 PM EDT Office Visit Dermatology at [address] [address] Marek Bonilla MD [address], [place] [address] documented as of this encounter Visit Diagnoses Not on filedocumented in this encounter Care Teams Tractor Expert Relationship Specialty Start Date End Date Deborah Quiroga APRN PCP - General Family Medicine 03/24/16 02/04/23 documented as of this encounter
--- OUTSIDE RECORDS SUMMARY | 2024-03-16 14:11 | XMS_ITS | Encounter Summary ---
[place] [address] Care Team Providers Care Bus Girl Name Role Phone Deborah Quiroga APRN Primary Care Provider [phone] Encounter Details Date Type Department Care Team (Latest Contact Info) Description 10/14/2016 - 10/14/2016 11:59 PM EDT Hospital Encounter [place] [phone] Alirio Esparza MD Pain Discharge Disposition: Home Social History Tobacco [...] when experiencing pain 1-10.). 30 tablet 5 09/25/2016 multivitamin (THERAGRAN) Tablet [...] EDT Office Visit Dermatology at [place] [address] [place] [address] Marek Bonilla MD [address], [place] [address] documented as of this encounter Procedures Procedure Name Priority Date/Time Associated Diagnosis Comments FILM LIBRARY STORAGE ONLY DX CHEST Routine 10/14/2016 12:00 AM EDT Pain documented in this encounter Results * Film Library- Storage Only DX Chest (10/14/2016 12:00 AM EDT) Narrative [facility] - 10/14/2016 5:16 PM EDT This exam is for storage only and is auto-finalizing. Alirio Esparza MD IMG FILM LIBRARY OR DERABLES [place], [place] documented in this encounter Visit Diagnoses Diagnosis Pain Generalized pain documented in this encounter Care Teams Bus Girl Relationship Specialty Start Date End Date Deborah Quiroga APRN PCP - General Family Medicine 03/24/16 02/04/23 documented as of this encounter
--- OUTSIDE RECORDS SUMMARY | 2024-03-16 14:11 | XMS_ITS | Encounter Summary ---
[place] [address] Care Team Providers Care Director Of Agronomy Name Role Phone Ashley Quirogan Cornelius ANURAG Primary Care Provider [phone] Reason for Visit * Reason Onset Date Comments Medical Care Coordination 07/27/2017 Encounter Details Date Type Department Care Team (Late st Contact Info) Description 07/27/2017 Telephone Hematology [place] [phone] Alexandrea Greenwood RN Medical Care Coordination Social [...] 07/27/2017 12:25 PM EST Message received from school secretary: Injection/Infusion Referral Call placed to [facility] @ [phone] Spoke w/ [employer] [address] [address] [employer] Services to be provided for pt are: CBC/CMP DONE Q6 MONTHS X2 STARTING NOVEMBER 2017 TECH confirmed they would provide services to pt - I CALLED PT, LM. Pt orders faxed to [phone] documented in this encounter Plan of Treatment Upcoming Encounters Date Type Department Care Team (Late st Contact Info) Description 03/01/2025 4:15 PM EDT Office Visit Dermatology at [place] [address] [place] [address] Marek Bonilla MD [address], [place] [address] documented as of this encounter Visit Diagnoses Not on filedocumented in this encounter Care Teams Director Of Agronomy Relationship Specialty Start Date End Date Deborah Quiroga APRN PCP - General Family Medicine 03/24/16 02/04/23 documented as of this encounter
--- OUTSIDE RECORDS SUMMARY | 2024-03-16 14:11 | XMS_ITS | Encounter Summary ---
[place] [address] Care Team Providers Care Cellular Biologist Name Role Phone Deborah Quiroga APRN Primary Care Provider [phone] Encounter Details Date Type Department Care Team (Late st Contact Info) Description 03/04/2020 External Results Hematology [place] [address] Ther[place], Bhumi Cornelius Social History Tobacco Use [...] 4:15 PM EDT Office Visit Dermatology at [place] [address] [facility] [place] [address] Marek Bonilla MD [address], [place] [address] documented as of this encounter Procedures Procedure [...] Provider CHEMISTRY ORDERAB LES Performing Organization Address City/[facility]/ZIP Co de Phone Number EXTERNAL [...] Provider CHEMISTRY ORDERAB LES Performing Organization Address City/[facility]/ZIP Co de Phone Number EXTERNAL [...] on filedocumented in this encounter Care Teams Cellular Biologist Relationship Specialty Start Date End Date Deborah Quiroga, NET COORDINATOR PCP - General Family Medicine 03/24/16 02/04/23 documented as of this encounter
--- OUTSIDE RECORDS SUMMARY | 2024-03-16 14:11 | XMS_ITS | Encounter Summary ---
Author Organization [facility] Address [facility] [place] [address] Care Team Providers Care Immunopathologist Name Role Phone Deborah Quiroga APRN Primary Care Provider [phone] Encounter Details Date Type Department Care Team (Late st Contact Info) Description 06/18/2017 11:00 AM EST Office Visit Hematology [place] [address] Markel Borjas MD [facility] [address] HEMATOLOGY [place] [address] Neutropenia, unspecified type Social History Tobacco Use [...] 06/18/2017 11:00 AM EST Hematology Outpatient Clinic [facility] Hematology Outpatient Consult Note CC: 60 [...] TOUCH PREP, CLOT SECTION, CORE ??BIOPSY); [OSR# [id number], COLLECTED 06/23/2016, 19 SLIDES]: ?1. ??Normocellular marrow [...] a clonal lymphoproliferative or myeloproliferative disorder (OSR# [id number]) Chromosome analysis on the marrow aspirate revealed [...] working the same job and participating in [employer]. Past Medical/Surgical History: 1. Leukopenia -element of neutropenia, as noted above 2. Aortic Stenosis -severe -AVR surgery 3. Hypercholesterolemia 4. Depression 5. Hypertension 6. 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 Extremities: No edema. Labs: Hgb= 13 Xcpn=029 ANC= 0.6 Imaging As above - reviewed [...] 4:15 PM EDT Office Visit Dermatology at [place] [address] [place] [address] Marek Bonilla MD [address], [address] [place] [address] documented as of this encounter Visit Diagnoses Diagnosis Neutropenia, unspecified type documented in this encounter Care Teams Immunopathologist Relationship Specialty Start Date End Date Deborah Quiroga APRN PCP - General Family Medicine 03/24/16 02/04/23 documented as of this encounter
--- OUTSIDE RECORDS SUMMARY | 2024-03-16 14:11 | XMS_ITS | Encounter Summary ---
[place] [address] Care Team Providers Care Manufacturing Electrician Name Role Phone Deborah Quiroga ANURAG Primary Care Provider [phone] Encounter Details Date Type Department Care Team (Late st Contact Info) Description 06/18/2017 External Results Hematology [place] [address] Alexandrea Greenwood RN Neutropenia, unspecified type Social [...] 4:15 PM EDT Office Visit Dermatology at [place] [address] [place] [phone] Marek Bonilla MD [address], [place] [address] documented as of this encounter Procedures Procedure [...] type documented in this encounter Care Teams Manufacturing Electrician Relationship Specialty Start Date End Date Deborah Quiroga APRN PCP - General Family Medicine 03/24/16 02/04/23 documented as of this encounter
--- OUTSIDE RECORDS SUMMARY | 2024-03-16 14:11 | XMS_ITS | Encounter Summary ---
Author Organization [facility] Address [facility] [place] [address] Care Team Providers Care Cloud Software Engineer Name Role Phone Junaid Deborah Shields APRN Primary Care Provider [phone] Encounter Details Date Type Department Care Team (Late st Contact Info) Description 03/01/2020 11:30 AM EDT Office Visit Hematology [place] [phone] Patrick Borjas MD [facility] [address] [place] [address] Neutropenia, unspecified type Social History Tobacco Use [...] 03/01/2020 11:30 AM EDT Hematology Outpatient Clinic [facility] Hematology Outpatient Consult Note [...] TOUCH PREP, CLOT SECTION, CORE ??BIOPSY); [OSR# [id number], COLLECTED 06/23/2016, 19 SLIDES]: ?1. 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 Extremities: No edema. Labs: Hgb= 12.4 Stvk=230 ANC= 2.5 Imaging As above - reviewed [...] PM EDT Office Visit Dermatology at [address] [address] Marek Bonilla MD [address] [facility], [place] [address] documented as of this encounter Visit Diagnoses Diagnosis Neutropenia, unspecified type documented in this encounter Care Teams Cloud Software Engineer Relationship Specialty Start Date End Date Deborah Quiroga APRN PCP - General Family Medicine 03/24/16 02/04/23 documented as of this encounter
--- OUTSIDE RECORDS SUMMARY | 2024-03-16 14:11 | XMS_ITS | Encounter Summary ---
[place] [address] Care Team Providers Care Microbiological Lab Technician Name Role Phone Deborah Quiroga APRN Primary Care Provider [phone] Encounter Details Date Type Department Care Team (Late st Contact Info) Description 11/11/2020 Refill Dermatology at [address] [phone] Taylor Malone, CLIENT SERVICES SPECIALIST Social History Tobacco Use Types Packs/Day Years [...] PM EDT Office Visit Dermatology at [address] [phone] Marek Bonilla MD [address] [facility], [place] [address] documented as of this encounter Visit Diagnoses Not on filedocumented in this encounter Care Teams Microbiological Lab Technician Relationship Specialty Start Date End Date Deborah Quiroga APRN PCP - General Family Medicine 03/24/16 02/04/23 documented as of this encounter
--- OUTSIDE RECORDS SUMMARY | 2024-03-16 14:11 | XMS_ITS | Encounter Summary ---
[place] [address] Care Team Providers Care Carpet Jack Name Role Phone Deborah Quiroga APRN Primary Care Provider Encounter Details Date Type Department Care Team (Late st Contact Info) Description 07/21/2017 Orders Only [place]ematology [place] [address] Alexandrea Greenwood RN Other neutropenia Social History [...] 4:15 PM EDT Office Visit Dermatology at [place] [address] [place] [address] Marek Bonilla MD [address], [place] [address] documented as of this encounter Visit Diagnoses Diagnosis Other neutropenia documented in this encounter Care Teams Carpet Jack Relationship Specialty Start Date End Date Deborah Quiroga APRN PCP - General Family Medicine 03/24/16 02/04/23 documented as of this encounter
--- OUTSIDE RECORDS SUMMARY | 2024-03-16 14:12 | XMS_ITS | Encounter Summary ---
Author Organization [facility] Address [facility] [place] [address] Care Team Providers Care Echo Vasc Tech Name Role Phone Deborah Quiroga APRN Primary Care Provider [phone] Encounter Details Date Type Department Care Team (Latest Contact Info) Description 05/19/2016 11:52 AM EDT - 05/19/2016 11:59 PM EDT Hospital Encounter XRay at [address] [place] [address] Alirio Esparza MD Nonrheumatic aortic valve stenosis Discharge Disposition: Home [...] 4:15 PM EDT Office Visit Dermatology at [place] [address] [place] [address] Marek Bonilla MD [address], [place] [address] documented as of this encounter Procedures Procedure [...] disorders documented in this encounter Care Teams Echo Vasc Tech Relationship Specialty Start Date End Date Deborah Quiroga, TOBACCO BUYER PCP - General Family Medicine 03/24/16 02/04/23 documented as of this encounter
--- OUTSIDE RECORDS SUMMARY | 2024-03-16 14:12 | XMS_ITS | Encounter Summary ---
[place] [address] Care Team Providers Care Entertainer & Comic Name Role Phone Deborah Quiroga APRN Primary Care Provider [phone] Encounter Details Date Type Department Care Team (Late st Contact Info) Description 09/17/2016 External Results Hematology [place] [address] Alexandrea Greenwood RN Neutropenia, unspecified type Social [...] 4:15 PM EDT Office Visit Dermatology at [place] [address] [place] [address] Marek Bonilla MD [address], [place] [address] documented as of this encounter Procedures Procedure [...] type documented in this encounter Care Teams Entertainer & Comic Relationship Specialty Start Date End Date Deborah Quiroga, ENTERTAINER & COMIC PCP - General Family Medicine 03/24/16 02/04/23 documented as of this encounter
--- OUTSIDE RECORDS SUMMARY | 2024-03-16 14:12 | XMS_ITS | Encounter Summary ---
Author Organization [facility] Address [facility] [place] [address] Care Team Providers Care Network Security Administrator Name Role Phone Deborah Quiroga APRN Primary Care Provider Encounter Details Date Type Department Care Team (Late st Contact Info) Description 07/17/2016 9:00 AM EST Office Visit [place] [address] Markel Borjas MD [facility] [address] HEMATOLOGY [place] [address] Neutropenia, unspecified type Social History Tobacco Use [...] 07/17/2016 9:00 AM EST Hematology Outpatient Clinic [facility] Hematology Outpatient Consult Note CC: 60 year [...] TOUCH PREP, CLOT SECTION, CORE ??BIOPSY); [OSR# [id number], COLLECTED 06/23/2016, 19 SLIDES]: ?1. 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 Labs will be drawn at [facility] next week Imaging As above - [...] leukopenia. Will consi kanwal talking to pt's lumber mover about a switch from ACEI to ARB [...] the original note were not included. [facility] HEM ONC [facility] [address] Date: 07/17/16 Patient Name: Purnima Thacker : 1955 Diagnosis: neutropenia Referral to [site]: [facility] Orders: ? Labs: Fax results to . [x] Draw CBC, copper level, CMV PCR, mononucleosis screen on 07/20 Repeat CBC on 07/30 (to measure response of WBC after Neulasta) ? Growth factor: [x] Neulasta 6mg SQ injection x 1 on 07/20/2016 Signature: Markel Borjas MD beeper # [id number] documented in this encounter Plan of Treatment Upcoming Encounters Date Type Department Care Team (Late st Contact Info) Description 03/01/2025 4:15 PM EDT Office Visit Dermatology at [place] [address] [place] [address] Marek Bonilla MD [address], [place] [address] documented as of this encounter [...] MD HEMATOLOGY ORDERAB LES Performing Organization Address [facility] Co de Phone Number EXTERNAL LAB * Mononucleosis Screen (07/20/2016 10:30 AM EST) Mononucleosis Screen neg neg - neg EXTERNAL LAB Blood specimen (specimen) 07/20/2016 10:30 AM EST Markel Borjas MD IMMUNOLOGY ORDERAB LES Performing Organization Address [facility] Co de Phone Number EXTERNAL LAB * Copper, serum (07/20/2016 10:30 AM EST) Pathologist [facility] Copper (NOVEMBER) 1.09 0.75 - 1.45 EXTERNAL LAB Blood specimen (specimen) 07/20/2016 10:30 AM EST Markel Borjas MD LAB SEND OUT ORDER JODIE Performing Organization Address [facility] de Phone Number EXTERNAL LAB * CMV PCR, Quantitative (07/20/2016 10:30 AM EST) Pathologist [facility] CMV PCR,Quantitati ve undetected EXTERNAL LAB Blood specimen (specimen) 07/20/2016 10:30 AM EST Markel Borjas MD MOLECULAR ORDERABL ES Performing Organization Address [facility] Co de Phone Number EXTERNAL LAB * (ABNORMAL) CBC (with Diff) (07/20/2016 10:30 AM EST) Pathologist [facility] White Blood Cell 1.61(A) 4.4 - 10.8 EXTERNAL LAB Hemoglobin 12.3 12.0 - 16.0 EXTERNAL LAB Hematocrit 37.2 36.0 - 46.0 EXTERNAL LAB Platelet 229 130 - 400 EXTERNAL LAB Blood specimen (specimen) 07/20/2016 10:30 AM EST Markel Borjas MD HEMATOLOGY ORDERAB LES EXTERNAL LAB documented in this encounter Visit Diagnoses Diagnosis Neutropenia, unspecified type documented in this encounter Care Teams Network Security Administrator Relationship Specialty Start Date End Date Deborah Quiroga, BROOM MAKER PCP - General Family Medicine 03/24/16 02/04/23 documented as of this encounter
--- OUTSIDE RECORDS SUMMARY | 2024-03-16 14:12 | XMS_ITS | Encounter Summary ---
[place] [address] Care Team Providers Care Steam Plant Operator Name Role Phone Junaid, Deborah Shields APRN Primary Care Provider [phone] Reason for Visit * Auth/Cert Specialty Diagnoses / Procedures Referred By Crispin t Referred To Contact Diagnoses Aortic stenosis Procedures PRO REPLACE AORT VALV, PROSTH VALV @REPLACE AORTIC VALVE, OPEN, W\CPB, W\PROSTHETIC VALVE (WRVU 41.32) Referral ID Status Reason Start Date Expiration Date Visits Re quested Visits Authorized [id number] 1 1 Encounter Details Date Type Department Care Team (Late st Contact Info) Description 09/21/2016 7:25 AM EST Anesthesia [place] [address] Luis Enrique Quarles MD [facility] [address] [place] [address] Henrik Cooper MD [facility] [place] [address] Anesthesia Record Procedure Summary Procedure Name Responsible [...] 0819 Sternotomy 0844 CV Bypass init 1009 Shaker Repairer 1014 An Clamp Remove 1031 CP Bypass [...] Tube 09/21/16 (#28 angled chest tube to [place]: left: pericardial); Left; 09/22/16; 1119 09/21/16 0000 by Toshia Alejandre RN 09/22/16 1119 by Vero Bonilla RN Chest Tube 09/21/16 (#28 straig ht chest tube to [place]; right: mediastinal'); Right; mediastinum; 09/22/16; 1118 09/21/16 0000 by Toshia Alejandre RN 09/22/16 1118 by Vero Bonilla RN (RETIRED) Peripheral IV Line - Single Lumen 09/21/16; 0648; metacarpal vein (top of hand), left; mhyu-nbh-ndrbfr catheter system; 20 gauge; valdo Arteaga; 09/23/16; [...] Cooper MD - 09/21/2016 6:50 PM EST [facility] Department of Anesthesiology Post-procedure Note Patient: Purnima Thacker Procedure Summary Date Anesthesia Start Anesthesia Stop Room / Location 09/21/[address] [facility] OR 16 / [facility] MAIN OR Procedure Diagnosis Surgeon Responsible Provider @REPLACE AORTIC VALVE, OPEN, W\CPB, W\PROSTHETIC VALVE (WRVU 41.32) (N/A Chest); @AORTOPLASTY FOR SUPRAVALVULAR STENOSIS (WRVU 29.33) (N/A Chest) () Alirio Francisco MD Clark, Jeffrey A, MD All Anesthesia Providers: Anesthesiologist: Luis Enrique Quarles MD Sawmill Manager: Henrik Cooper MD Last (1hr) Vitals: BP Temp 36.1 ??C (97 ??F) (09/21/16 1800) Pulse 79 (09/21/16 1800) Resp 11 (09/21/16 1800) SpO2 98 % (09/21/16 1800) Patient Location: [facility] Level of Consciousness: Sedated (Pharmacologic/Intentional) Pain Management: [...] 4:15 PM EDT Office Visit Dermatology at [place] [address] [place] [address] Marek Bonilla MD [address] [place] [address] RD, [address] [place] [address] documented as of this encounter Visit Diagnoses [...] mg documented in this encounter Care Teams Steam Plant Operator Relationship Specialty Start Date End Date Deborah Quiroga, CARNIVAL WORKER PCP - General Family Medicine 03/24/16 02/04/23 documented as of this encounter
--- OUTSIDE RECORDS SUMMARY | 2024-03-16 14:12 | XMS_ITS | Encounter Summary ---
Author Organization [facility] Address [facility] [place] [address] Care Team Providers Care Pocket Setter Lockstitch Name Role Phone Junaid, Deborah Shields APRN Primary Care Provider [phone] Reason for Visit * Auth/Cert Specialty Diagnoses / Procedures Referred By Crispin t Referred To Contact Diagnoses AVS Procedures CARDIAC CATHETERIZATION Referral ID Status Reason Start Date Expiration Date Visits Re quested Visits Authorized [id number] 1 1 Encounter Details Date Type Department Care Team (Late st Contact Info) Description 06/03/2016 7:30 AM EDT - 06/03/2016 8:30 AM [place] [phone] Mario Alberto Escobedo MD [facility] [place] [address] CARDIAC CATHETERIZATION Social History Tobacco Use Types [...] by your doctor, do not take any rbnx-ght-qenpqmi medicinesor herbal preparations without first discussing this with your doctor or pharmacist. There is the possibility of side effects and interactions when these are combined. Follow Up Care Who to call with questions or problems If there are any questions or problems that you think might be related to your cardiac cath or angioplasty, contact the agriscience teacher application integration engineer by calling [facility] at . * Patient Instructions* Felicia Corrigan - 06/03/2016 9:33 AM EDT Cardiology Instructions Call your doctor if: Chest pain, dyspnea, pain or swelling in legs occurs. If you have non-emergent questions between now and the time of your follow up appointments: -During 8am-5pm Wednesday through Wednesday call [phone] to speak with a nurse in the cardiology clinic -All other times call [phone] and ask to speak to the operational review sergeant application integration engineer. MEDICATIONS - restart your spironolactone, discontinue prior [...] Appointments: Primary care provider: Cardiology: Deborah Hahn, CRAYON SORTING MACHINE FEEDER [phone] Follow up as planned or as needed. Dr. Esparza [phone] Other follow-up appointment: Hematology - Dr. Mario [...] 4:15 PM EDT Office Visit Dermatology at [place] [address] [place] [address] Marek Bonilla MD [address] [place] [address] documented as of this encounter Procedures Procedure [...] Green Tube HOLD (06/03/2016 11:45 AM EDT) [facility] Green Hold Sample in lab. [facility] Blood specimen (specimen) Venous Draw / Unknown 06/03/2016 11:45 AM EDT 06/03/2016 12:12 PM EDT Mario Alberto Escobedo MD CHEMISTRY ORDERABLES Performing Organization Address [facility] de Phone Number [facility] [place] [address] * Methylmalonic acid, serum (06/03/2016 11:45 AM EDT) [facility] Methylmalonic Acid (NOVEMBER) 0.21 <=0.40 nmol/mL [facility] Comment: Test Performed by: [place] [address] Online Merchandising Manager: Raymond Chaudhry II, M.D., Ph.D. Blood specimen (specimen) 06/03/2016 11:45 AM EDT 06/03/2016 1:57 PM EDT Narrative Resulting Agency Comment Spec In Lab Mario Alberto Escobedo MD LAB SEND OUT ORDERAB LES Performing Organization Address [facility] Co de Phone Number [facility] [place] [address] * Granulocyte Antibody (06/03/2016 11:45 AM EDT) [facility] Granulocyte Ab (NOVEMBER) Negative Not Applicable [facility] Comment: ADDITIONAL INFORMATION Method: Immunofluorescent Assay Performing Laboratory CLIA# [id number] This test was developed and its performance characteristics determined by [facility] in a manner consistent with CLIA requirements. This test has not been cleared or approved by the U.S. Food and Drug Administration. Test Performed by: [facility] - [address] [address] Online Merchandising Manager: Raymond Chaudhry II, M.D., Ph.D. Blood specimen (specimen) 06/03/2016 11:45 AM EDT 06/03/2016 1:57 PM EDT Narrative Resulting Agency Comment Spec In Lab Mario Alberto Escobedo MD LAB SEND OUT ORDERAB LES Performing Organization Address [facility] Co de Phone Number [facility] [place] [address] * TSH (06/03/2016 11:45 AM EDT) Thyroid Stimulating Hormone 2.18 0.27 - 4.20 mcIU/mL [facility] Blood specimen (specimen) 06/03/2016 11:45 AM EDT 06/03/2016 12:11 PM EDT Narrative Resulting Agency Comment Spec In Lab Mario Alberto Escobedo MD CHEMISTRY ORDERABLES Performing Organization Address [facility] Co de Phone Number [facility] [place] [address] * Homocysteine Total, Plasma (06/03/2016 11:45 AM EDT) Homocystine 9 <=15 mcmol/L [facility] Blood specimen (specimen) 06/03/2016 11:45 AM EDT 06/03/2016 12:11 PM EDT Narrative Resulting Agency Comment Spec In Lab Mario Alberto Escobedo MD CHEMISTRY ORDERABLES Performing Organization Address [facility] Co de Phone Number [facility] [place] [address] * Folate, serum (06/03/2016 11:45 AM EDT) Folate >20.0 4.8 - 24.2 ng/mL [facility] Blood specimen (specimen) 06/03/2016 11:45 AM EDT 06/03/2016 12:04 PM EDT Narrative Resulting Agency Comment Spec In Lab Mario Alberto Escobedo MD CHEMISTRY ORDERABLES Performing Organization Address [facility] Co de Phone Number [facility] [place] [address] * (ABNORMAL) Sedimentation rate (06/03/2016 11:45 AM EDT) Sedimentation Rate Automated 41(H) 0 - 20 mm/hr [facility] Blood specimen (specimen) 06/03/2016 11:45 AM EDT 06/03/2016 12:04 PM EDT Narrative Resulting Agency Comment Spec In Lab Mario Alberto Escobedo MD HEMATOLOGY ORDERABLE S Performing Organization Address [facility] Co de Phone Number [facility] [place] [address] * Lactate Dehydrogenase (06/03/2016 11:45 AM EDT) Lactate Dehydrogenase 164 110 - 220 unit/L [facility] Blood specimen (specimen) 06/03/2016 11:45 AM EDT 06/03/2016 12:11 PM EDT Narrative Resulting Agency Comment Spec In Lab Mario Alberto Escobedo MD CHEMISTRY ORDERABLES Performing Organization Address [facility] Co de Phone Number [facility] [place] [address] * Comprehensive metabolic panel (non-fasting) (06/03/2016 11:45 AM EDT) Glucose 90 65 - 199 mg/dL [facility] Comment:Diabetes: >=200 mg/d L plus symptoms Blood Urea Nitrogen 11 8 - 18 mg/dL [facility] Creatinine 0.83 0.70 - 1.20 mg/dL [facility] Comment: Please note that the pediatric reference intervals supplied above were not validated at [facility]. Results from pediatric patients should be interpreted in conjunction to the patient's age, height and muscle mass. Sodium 143 135 - 145 mmol/L [facility] Potassium 4.0 3.5 - 5.0 mmol/L WHITE [...] [facility] Carbon Dioxide 25 22 - 31 mmol/L [facility] Anion Gap 14 5 - 15 mmol/L [facility] Calcium 9.2 8.5 - 10.5 mg/dL [facility] Protein, Total 7.0 6.1 - 8.0 gm/dL [facility] Albumin 4.0 3.2 - 5.2 gm/dL [facility] Aspartate Aminotransferase 17 0 - 30 unit/L [facility] Alanine Aminotransferase 9 0 - 30 unit/L [facility] Alkaline Phosphatase 81 40 - 104 unit/L [facility] Bilirubin, Total 0.4 0.2 - 1.3 mg/dL [facility] Bilirubin, Direct 0.1 0.0 - 0.3 mg/dL [facility] Est Glomerular Filtration Rate >60 >=60 [facility] Comment: [...] the following links into your internet browser. [email or web address] Blood specimen (specimen) 06/03/2016:45 AM EDT 06/03/2016 12:11 PM EDT Narrative Resulting Agency Comment Spec In Lab Mario Alberto Escobedo MD CHEMISTRY ORDERABLES [facility] [place] [address] documented in this encounter Visit Diagnoses Diagnosis [...] Procedure) 0654 (New Bag - Prov ider: Alei Madrid RN) sodium chloride 0.9% infusion 150 [...] Hernandez) documented in this encounter Care Teams Pocket Setter Lockstitch Relationship Specialty Start Date End Date Deborah Quiroga APRN PCP - General Family Medicine 03/24/16 02/04/23 documented as of this encounter
--- OUTSIDE RECORDS SUMMARY | 2024-03-16 14:12 | XMS_ITS | Encounter Summary ---
[place] [address] Care Team Providers Care Php Magento Developer Name Role Phone Deborah Quiroga APRN Primary Care Provider [phone] Encounter Details Date Type Department Care Team (Late st Contact Info) Description 07/31/2016 Orders Only [place] [address] Alexandrea Greenwood RN Neutropenia, unspecified type Social [...] PM EDT Office Visit Dermatology at [place] [address] [place] [address] Marek Bonilla MD [address] [facility] [facility] [place] [address] documented as of this encounter Results * [...] type documented in this encounter Care Teams Php Magento Developer Relationship Specialty Start Date End Date Deborah Quiroga, MARRIAGE AND FAMILY TEACHER PCP - General Family Medicine 03/24/16 02/04/23 documented as of this encounter
--- OUTSIDE RECORDS SUMMARY | 2024-03-16 14:12 | XMS_ITS | Encounter Summary ---
[place] [address] Care Team Providers Care Barrel Racer Name Role Phone Deborah Quiroga ANURAG Primary Care Provider [phone] Encounter Details Date Type Department Care Team (Late st Contact Info) Description 09/11/2016 Orders Only Hematology [place] [address] Alexandrea Greenwood RN Social History [...] the original note were not included. N [facility] HEM ONC [facility] [phone] Date: 09/11/16 Patient Name: Purnima Thacker : 1955 Diagnosis: Neutropenia Referral to [site]: [facility] Orders: ? Growth factor: [x] Neulasta 6mg SQ injection x 1 on 09/16/16 Signature: Markel Borjas MD beeper # [id number] Co-signature [if needed]: documented in this encounter Plan of Treatment Upcoming Encounters Date Type Department Care Team (Late st Contact Info) Description 03/01/2025 4:15 PM EDT Office Visit Dermatology at [place] [address] [place] [address] Marek Bonilla MD [address] [place] [address] documented as of this encounter Procedures Procedure Name Priority Date/Time Associated Diagnosis Comments TRANSESOPHAGEAL ECHOCARDIOGRAM (GAVINO) Routine 09/22/2016 documented in this encounter Results * Transesophageal Echocardiogram (GAVINO) (09/22/2016) Anatomical Region Laterality Modality Other 09/22/2016 Narrative 09/22/2016 8:30 AM EST Procedure: ?Transesophageal Echocardiogram Patient: ?ANDREW ECHOLS M ? (Age): 1955(61y) Med Rec#: ? [id number] ?Sex: ?M ? Site Loc: ? [facility] ?Ht / Wt: ??(cm)/ (kg) ? Pt. Loc: ?OR ? Study Date: ?? 09/21/2016 ?Pt. Type: Tape: ? Referring: Alirio Francisco Reading: Henrik Yarbrough ([id number]) Beverage Sales Consultant: Jacobo Patel ([id number]) Interpreting Fellow: Jacobo Patel ([id number]) Diagnosis: *Aortic valve disorders (424.1) CPT Codes: *Echo GAVINO Full (98779) Indication: ?? AVR for severe Rhythm: ? [...] ? Mid-Inferior ?Normal ? Mid-Inferoseptal ?Normal ? [place]-Septal ? Normal ? [place]-Anterior ? Normal ? [place]-Lateral ?Normal ? [place]-Inferior ? Normal ? [place]-Tip ?Normal ? This report has been electronically signed by: Henrik Yarbrough M.D. ? 09/22/2016 08:30:41 Images reviewed and interpretation verified [facility] Cardiac Ultrasound Laboratory Procedure Note Henrik Yarbrough MD - 09/22/2016 Procedure: Transesophageal Echocardiogram Patient: ANDREW Mejias (Age): 1955(61y) Med Rec#: [id number] Sex: M Site Loc: [facility] Ht / Wt: (cm)/ (kg) Pt. Loc: OR Study Date: 09/21/2016 Pt. Type: Tape: Referring: Alirio Francisco Reading: Henrik Yarbrough ([id number]) Beverage Sales Consultant: Jacobo Patel ([id number]) Interpreting Fellow: Jacobo Patel ([id number]) Diagnosis: *Aortic valve disorders (424.1) CPT Codes: *Echo GAVINO Full (63534) Indication: AVR for severe Rhythm: Sinus SUMMARY: [...] Normal Mid-Posterolateral Normal Mid-Inferior Normal Mid-Inferoseptal Normal [place]-Septal Normal [place]-Anterior Normal [place]-Lateral Normal [place]-Inferior Normal [place]-Tip Normal This report has been electronically signed by: Henrik Yarbrough M.D. 09/22/2016 08:30:41 Images reviewed and interpretation verified [facility] Cardiac Ultrasound Laboratory Unknown ECHO ORDERABLES documented in this encounter Visit Diagnoses Not on filedocumented in this encounter Care Teams Barrel Racer Relationship Specialty Start Date End Date Deborah Quiroga APRN PCP - General Family Medicine 03/24/16 02/04/23 documented as of this encounter
--- OUTSIDE RECORDS SUMMARY | 2024-03-16 14:12 | XMS_ITS | Encounter Summary ---
[place] [address] Care Team Providers Care Contact Lens Molder Name Role Phone Deborah Quiroga APRN Primary Care Provider [phone] Encounter Details Date Type Department Care Team (Late st Contact Info) Description 08/18/2016 Orders [place] [address] Alirio Esparza MD Aortic valve stenosis, unspecified etiology Social History [...] 4:15 PM EDT Office Visit Dermatology at [place] [address] [place] [address] Marek Bonilla MD [address] [facility] [facility], [place] [address] documented as of this encounter Results * Basic Metabolic Panel (non-fasting) (08/18/2016 4:50 PM EST) Glucose 82 65 - 199 mg/dL [facility] Comment:Diabetes: >=200 mg/d L plus symptoms Blood Urea Nitrogen 12 8 - 18 mg/dL [facility] Creatinine 0.87 0.70 - 1.20 mg/dL [facility] Comment: Please note that the pediatric reference intervals supplied above were not validated at [facility]. Results from pediatric patients should be interpreted in conjunction to the patient's age, height and muscle mass. Sodium 142 135 - 145 mmol/L [facility] Potassium 3.8 3.5 - 5.0 mmol/L [facility] Comment: Please note: ??Patients with WBC >100,000 may have falsely elevated Potassium levels. ??For accurate Potassium quantification in these patients send serum separator tube (gold top) for subsequent determinations. ??Contact the Clinical Chemistry Laboratory if there are any questions. Chloride 102 98 - 107 mmol/L [facility] Carbon Dioxide 26 22 - 31 mmol/L [facility] Anion Gap 14 5 - 15 mmol/L [facility] Calcium 9.7 8.5 - 10.5 mg/dL [facility] Est Glomerular Filtration Rate >60 [...] the following links into your internet browser. [email or web address] Blood specimen (specimen) 08/18/2016 4:50 PM EST 08/18/2016 5:03 PM EST Narrative Resulting Agency Comment Spec In Lab Alirio Esparza MD CHEMISTRY ORDERABLE S [facility] [place] [address] documented in this encounter Visit Diagnoses Diagnosis Aortic valve stenosis, unspecified etiology documented in this encounter Care Teams Contact Lens Molder Relationship Specialty Start Date End Date Deborah Quiroga, SAT ACT INSTRUCTOR PCP - General Family Medicine 03/24/16 02/04/23 documented as of this encounter
--- OUTSIDE RECORDS SUMMARY | 2024-03-16 14:12 | XMS_ITS | Encounter Summary ---
Author Organization [facility] Address [facility] [place] [address] Care Team Providers Care Founder Name Role Phone Deborah Quiroga ANURAG Primary Care Provider [phone] Encounter Details Date Type Department Care Team (Late st Contact Info) Description 05/22/2016 Orders Only Cardiology at [address] [address] Chele Randolph PA [facility] [place] [address] Aortic valve stenosis, unspecified etiology Social History [...] 4:15 PM EDT Office Visit Dermatology at [place] [address] [place] [phone] Marek Bonilla MD [address] [place] [address] documented as of this encounter Procedures Procedure Name Priority Date/Time Associated Diagnosis Comments CARDIAC CATHETERIZATION Routine 06/03/20 16 9:13 AM EDT Aortic valve stenosis, unspecified etiology documented in this encounter Results * CARDIAC CATHETERIZATION (06/03/2016 9:13 AM EDT) Anatomical Region Laterality Modality Other Narrative 06/03/2016 10:13 AM EDT ?[facility] ? Cardiac Catheterization/Intervention Report ? Patient Name: Kirstie, Purnima M. ? Procedure Date: 06/03/2016 ? A #: [id number] ? Primary Physician: Nitesh Escobedo ? Case #: [id number] ? File Name: [id number] ? Catheterization Order Number: [id number] ? [facility] ? Final Report [place], [place] ? Patient Name: ? Purnima M. Kirstie ? ID#: ?[id number] ? : ?1955 ? Procedure Date: ? [...] no symptom, no angina (w/i 14 days). [place] ?Cardiovascular Society angina class was 0. This [...] Procedure Note Nitesh Escobedo MD - 09/21/2016 [facility] Cardiac Catheterization/Intervention Report Patient Name: Purnima Thacker Procedure Date: 06/03/2016 A #: [id number] Primary Physician: Nitesh Escobedo Case #: [id number] File Name: [id number] Catheterization Order Number: [id number] [facility] FinalReport [place], [place] Patient Name: Purnima Thacker ID#:[id number] :1955 Procedure Date: June 03, 2016 Case [...] with: no symptom, no angina (w/i 14 days).[place] Cardi[employer] Society angina class was 0. This [...] etiology documented in this encounter Care Teams Founder Relationship Specialty Start Date End Date Deborah Quiroga APRN PCP - General Family Medicine 03/24/16 02/04/23 documented as of this encounter
--- OUTSIDE RECORDS SUMMARY | 2024-03-16 14:12 | XMS_ITS | Encounter Summary ---
[place] [address] Care Team Providers Care Chair Frame Builder Name Role Phone Junaid, Deborah Shields APRN Primary Care Provider [phone] Reason for Visit * Reason Onset Date Comments Labs Only 09/16/2016 Encounter Details Date Type Department Care Team (Late st Contact Info) Description 09/16/2016 Telephone Hematology [place] [phone] Alexandrea Greenwood, RN Labs Only Social History [...] 09/16/2016 11:09 AM EST Message received from clinical document improvement educator: Purnima is having her Neulasta done today at [facility]. ??She is wondering if we want to do a CBC prior to the injection? [phone] Borjas: CBC is fine RN spoke with Swapna at [facility] who confirms they can draw CBC on pt today, RN faxed CBC w/diff to [facility] lab at [phone] RN relayed to pt that CBC ordered had been faxed to [facility], pt will have CBC drawn today prior to neulasta injection. documented in this encounter Plan of Treatment Upcoming Encounters Date Type Department Care Team (Late st Contact Info) Description 03/01/2025 4:15 PM EDT Office Visit Dermatology at [place] [address] [place] [address] Marek Bonilla MD [address] [place] [address] documented as of this encounter Results * [...] type documented in this encounter Care Teams Chair Frame Builder Relationship Specialty Start Date End Date Deborah Quiroga APRN PCP - General Family Medicine 03/24/16 02/04/23 documented as of this encounter
--- OUTSIDE RECORDS SUMMARY | 2024-03-16 14:12 | XMS_ITS | Encounter Summary ---
Author Organization [facility] Address [facility] [place] [address] Care Team Providers Care Lpn Private Duty Name Role Phone Deborah Quiroga APRN Primary Care Provider [phone] Reason for Visit * Reason Comments Schedule Office Case * Consultation (Routine) - Closed Specialty Diagnoses / Procedures Referred By Contac t Referred To Contact Hematology and Oncology Diagnoses Leukopenia Neutropenia LEUKOPENIA W/NEUTROPENIA Procedures TC PEGFILGRASTIM, 6MG, INJECTION LEUKOPENIA W/NEUTROPENIA Alirio Esparza MD [facility] [place] [address] Mario Alberto Ramos Jr., MD [facility] [address] [place] [address] Referral ID Status Reason Start Date Expiration Date V isits Requested Visits Authorized [id number] Closed Consult, Test & Treat 07/17/2016 07/17/2017 1 1 Encounter Details Date Type Department Care Team (Late st Contact Info) Description 06/09/2016 3:00 PM EST Office Visit [place] [address] Mario Alberto Ramos Jr., MD [facility] [place] [address] Cyclical neutropenia Social History Tobacco Use Types [...] 06/09/2016 3:00 PM EST Hematology Outpatient Clinic [facility] Hematology Outpatient Consult Note CC: 60 [...] Unknown See Comment Flow Cytometry Report Unknown [id number] ... HematoPathology: Flow Cytometry DIAGNOSIS 1. No [...] EDT Office Visit Dermatology at [place] [address] [place] [phone] Marek Bonilla MD [address], [place] [address] documented as of this encounter Procedures Procedure [...] (06/09/2016 4:53 PM EST) Flow Cytometry Report [id number] ?Location: The signing pathologist has (i) examined [...] the Clinical Flow Cytometry Laboratory at [facility]. It has not been cleared or [...] high complexity clinical laboratory testing. SPECIMEN PROCESSING [id number] Cells for immunophenotypic analysis were derived from [...] Alberto Ramos Jr., MD PATHOLOGY/CYTOLOGY O RDERABLES [facility] [place] [address] * Scan, Peripheral Blood (06/09/2016 4:53 PM EST) Pathologist [facility] Plat estimate Normal [facility] RBC Morphology Normal [facility] Blood specimen (specimen) 06/09/2016 4:53 PM EST 06/09/2016 5:00 PM EST Narrative Resulting Agency Comment Spec In Lab Mario Alberto Ramos Jr., MD HEMATOLOGY ORDERABLE S Performing Organization Address City/[facility]/ZIP Co de Phone Number [facility] [place] [address] * (ABNORMAL) Differential, Automated (06/09/2016 4:53 PM EST) [facility] Neutrophil % 27.7 % [facility] Neutrophil Absolute 0.48(Crit ical) 1.70 - 6.10 x10(3)/mc L [facility] Comment: Matches Previous Results.. This result has been called to NOT CALLED by Jesusita Argueta on 06 09 2016 at 1817, and has not been read back. MATCHES PREVIOUS RESULTS Lymph % 57.2 % [facility] Lymphocytes Abs 1.0 0.9 - 3.2 x10(3)/mc L [facility] Monocyte % 13.3 % [facility] Monocyte Abs 0.2(L) 0.3 - 0.9 x10(3)/mc L [facility] Eos % 0.6 % [facility] Eosinophils Abs 0.0 0.0 - 0.4 x10(3)/mc L [facility] Basophil % 1.2 % [facility] Baso Absolute 0.0 0.0 - [...] MD HEMATOLOGY ORDERABLE S Performing Organization Address City/State/[facility] Co de Phone Number [facility] [place] [address] * (ABNORMAL) Hemogram (06/09/2016 4:53 PM EST) White Blood Cell 1.7(Criti gabrielle) 4.0 - 9.5 x10(3)/mc L [facility] Red Blood [...] [facility] NRBC% auto 0.0 % [facility] NRBC Absolute 0.000 0.000 - 0.000 x10(3)/mc L [facility] Blood specimen (specimen) 06/09/2016 4:53 PM EST 06/09/2016 5:00 PM EST Narrative Resulting Agency Comment Spec In Lab Mario Alberto Ramos Jr., MD HEMATOLOGY ORDERABLE S Performing Organization Address [facility] Co de Phone Number [facility] [place] [address] * Immunophenotyping Flow Cytometry (06/09/2016 4:53 PM EST) Immunophenotyping Flow See Comment [facility] Comment: When completed by the Pathologist, the Flow Cytometry Report ([id number]) will display under the Pathology Results section within [facility]. Specimen of unknown material (specimen) 06/09/2016 4:53 PM EST 06/09/2016 5:00 PM EST Narrative Resulting Agency Comment Spec In Lab Mario Alberto Ramos Jr., MD HEMATOLOGY ORDERABLE S Performing Organization Address City/[facility] Co de Phone Number [facility] [place] [address] documented in this encounter Visit Diagnoses Diagnosis Cyclical neutropenia Cyclic neutropenia documented in this encounter Care Teams Lpn Private Duty Relationship Specialty Start Date End Date Deborah Quiroga APRN PCP - General Family Medicine 03/24/16 02/04/23 documented as of this encounter
--- OUTSIDE RECORDS SUMMARY | 2024-03-16 14:12 | XMS_ITS | Encounter Summary ---
[place] [address] Care Team Providers Care Business Operations Manager Name Role Phone Ashley Quirogan Cornelius ANURAG Primary Care Provider [phone] Reason for Visit * Reason Onset Date Comments Medication Management 09/14/2016 Encounter Details Date Type Department Care Team (Late st Contact Info) Description 09/14/2016 Telephone Hematology [place] [phone] Alexandrea Greenwood, sorting supervisor Management Social History Tobacco Use Types Packs/Day [...] 09/14/2016 9:12 AM EST Message received from medical secretary teacher: Purnima called, asking for clarification on when [...] 4:15 PM EDT Office Visit Dermatology at [place] [address] [place] [address] Marek Bonilla MD [address] [place] [address] documented as of this encounter Visit Diagnoses Not on filedocumented in this encounter Care Teams Business Operations Manager Relationship Specialty Start Date End Date Deborah Quiroga APRN PCP - General Family Medicine 03/24/16 02/04/23 documented as of this encounter
--- OUTSIDE RECORDS SUMMARY | 2024-03-16 14:12 | XMS_ITS | Encounter Summary ---
Author Organization [facility] [place] [address] Care Team Providers Care Fireworks Assembly Supervisor Name Role Phone Junaid Deborah Shields APRN Primary Care Provider [phone] Encounter Details Date Type Department Care Team (Latest Contact Info) Description 05/19/2016 11:20 AM EDT [place] [phone] Nonrheumatic aortic valve stenosis Social History Tobacco [...] 4:15 PM EDT Office Visit Dermatology at [place] [address] [place] [phone] Marek Bonilla MD [address], [place] [address] documented as of this encounter Procedures Procedure Name Priority Date/Time Associated Diagnosis Comments SCAN, PERIPHERAL BLOOD Routine 05/19/2016 11:32 AM EDT HEMOGRAM Routine 05/19/2016 11:32 AM EDT Nonrheumatic aortic valve stenosis DIFFERENTIAL, AUTOMATED Routine 05/19/2016 11:32 AM EDT Nonrheumatic aortic valve stenosis TYPE AND SCREEN, SDP (FUTURE SURGERY, [facility] SAME DAY PROGRAM ONLY) Routine 05/19/2016 11:32 [...] Peripheral Blood (05/19/2016 11:32 AM EDT) Pathologist [facility] Plat estimate Normal [facility] RBC Morphology Normal [facility] Blood specimen (specimen) 05/19/2016 11:32 AM EDT 05/19/2016 11:41 AM EDT Narrative Resulting Agency Comment Spec In Lab Alirio Esparza MD HEMATOLOGY ORDERABL ES [facility] [place] [address] * (ABNORMAL) Differential, Automated (05/19/2016 11:32 AM EDT) [facility] Neutrophil % 25.9 % [facility] Neutrophil Absolute 0.42(Crit ical) 1.70 - 6.10 x10(3)/mc L [facility] Comment: This result has been called to DR ALIRIO ESPARZA by Alivia Ibarra on 05 19 2016 at 1228, and has been read back. Lymph % 59.9 % [facility] Lymphocytes Abs 1.0 0.9 - 3.2 x10(3)/mc L [facility] Monocyte % 13.0 % [facility] Monocyte Abs 0.2(L) 0.3 - 0.9 x10(3)/[facility]OR[facility] Eos % 0.6 % [facility] Eosinophils Abs 0.0 0.0 - 0.4 x10(3)/ L [facility] Basophil % 0.6 % [facility] Baso Absolute 0.0 0.0 - 0.1 x10(3)/[facility] Immature Gran % 0.00 % [facility] Comment: Immature granulocytes(IG's)percentage and absolute count will include metamyelocytes, myelocytes, and promyelocytes. Blood smears from CBCs yielding IG's will be scanned manually for concordance. If this scan disagrees with the automated IG or if promyelocytes are noted, a manual differential will be performed. Immature Gran Absolute 0.00 0.00 - 0.04 x10(3)/[facility] Blood specimen (specimen) 05/19/2016 11:32 AM EDT 05/19/2016 11:41 AM EDT Narrative Resulting Agency Comment Spec In Lab Alirio Esparza MD HEMATOLOGY ORDERABL ES [facility] [place] [address] * (ABNORMAL) Hemogram (05/19/2016 11:32 AM EDT) White Blood Cell 1.6(Criti gabrielle) 4.0 - 9.5 x10(3)/ L [facility] Comment: This result has been called to DR ALIRIO ESPARZA by Alivia Ibarra on 05 19 2016 at 1228, and has been read back. Red Blood Cell 3.96(L) 4.00 - 5.21 x10(6)/mc L [facility] Hemoglobin 12.5 11.7 - 15.5 gm/dL [facility] Hematocrit 37.9 35.7 - 45.8 % [facility] Mean Cell Volume 95.7(H) 82.6 - 94.4 fL [facility] Mean Cell Hemoglobin 31.6 27.1 - 32.0 pg [facility] Mean Cell Hemoglobin Concentration 33.0 31.7 - 35.0 gm/dL [facility] Platelet 227 145 - 357 x10(3)/mc L [facility] RDW Standard Deviation 40.5 37.0 - 46.0 fL [facility] RDW coefficient of variation 11.5 11.5 - 14.1 % [facility] Mean Platelet Volume 8.4 7.6 - 12.9 fL [facility] NRBC% auto 0.0 % [facility] NRBC Absolute 0.000 0.000 - 0.000 x10(3)/mc L [facility] Blood specimen (specimen) 05/19/2016 11:32 AM EDT 05/19/2016 11:41 AM EDT Narrative Resulting Agency Comment Spec In Lab Alirio Esparza MD HEMATOLOGY ORDERABL ES Performing Organization Address City/State/[facility] Co de Phone Number [facility] [place] [address] * Antibody screen (05/19/2016 11:32 AM EDT) Ab Screen Interp Negative [facility] Expires at [id number] on: 07/03/2016 [facility] Comment: Corrected from 06/11/16 12:00 [Unknown] on 06/09/16 05:51 by Bethanie Tomlinson I.. Corrected from 07/03/16 12:00 [Unknown] on 05/21/16 06:00 by Shelia Barrera Blood specimen (specimen) 05/19/2016 11:32 AM EDT 05/19/2016 11:35 AM EDT Narrative Resulting Agency Comment Spec In Lab Alirio Esparza MD BLOOD BANK LAB ORDSylvia ALEJO [facility] [place] [address] * ABO/Rh Typing (05/19/2016 11:32 AM EDT) ABORH Type B Pos [facility] Blood specimen (specimen) 05/19/2016 11:32 AM EDT 05/19/2016 11:35 AM EDT Narrative Resulting Agency Comment Spec In Lab Alirio Esparza MD BLOOD BANK LAB BETH ALEJO Performing Organization Address City/[facility]/ZIP Co de Phone Number [facility] [place] [address] * Basic Metabolic Panel (non-fasting) (05/19/2016 11:32 AM EDT) Pathologist [facility] Glucose 86 65 - 199 mg/dL [facility] Comment:Diabetes: >=200 mg/d L plus symptoms Blood Urea Nitrogen 13 8 - 18 mg/dL [facility] Creatinine 0.95 0.70 - 1.20 mg/dL [facility] Comment: Please note that the pediatric reference intervals supplied above were not validated at [facility]. Results from pediatric patients should [...] LABORATORY Est Glomerular Filtration Rate 60 >=60 [facility] Comment: This [...] the following links into your internet browser. [email or web address] Blood specimen (specimen) 05/19/2016 11:32 AM EDT 05/19/2016 11:41 AM EDT Narrative Resulting Agency Comment Spec In Lab Alirio Esparza MD CHEMISTRY ORDERABLE S [facility] [place] [id number] documented in this encounter Visit Diagnoses Diagnosis Nonrheumatic aortic valve stenosis Aortic valve disorders documented in this encounter Care Teams Fireworks Assembly Supervisor Relationship Specialty Start Date End Date Deborah Quiroga APRN PCP - General Family Medicine 03/24/16 02/04/23 documented as of this encounter
--- OUTSIDE RECORDS SUMMARY | 2024-03-16 14:12 | XMS_ITS | Encounter Summary ---
Author Organization [facility] [place] [address] Care Team Providers Care Manager Occupational Name Role Phone Deborah Quiroga APRN Primary Care Provider [phone] Encounter Details Date Type Department Care Team (Late st Contact Info) Description 07/31/2016 External Results Hematology [place] [address] Alexandrea Greenwood RN Neutropenia, unspecified type Social [...] 4:15 PM EDT Office Visit Dermatology at [place] [address] [place] [phone] Marek Bonilla MD [address] [place] [address] documented as of this encounter Procedures Procedure [...] documented in this encounter Care Teams Manager Occupational Relationship Specialty Start Date End Date Deborah Quiroga, RACK PUNCHER PCP - General Family Medicine 03/24/16 02/04/23 documented as of this encounter
--- OUTSIDE RECORDS SUMMARY | 2024-03-16 14:12 | XMS_ITS | Encounter Summary ---
[place] [address] Care Team Providers Care Tax Compliance Manager Name Role Phone Deborah Quiroga ANURAG Primary Care Provider [phone] Reason for Visit * Reason Onset Date Comments Medical Care Coordination 07/31/2016 Encounter Details Date Type Department Care Team (Late st Contact Info) Description 07/31/2016 Telephone Hematology [place] [address] Alexandrea Greenwood RN Medical Care Coordination Social [...] 08/04/15 RN spoke with Aydee of the [facility] lab who states they can draw pt's cbc on 08/04/15, RN faxed lab req to [phone] at Aydee's request. RN instructed pt on Dr. Borjas's direction above. Pt verbalized understanding. documented in this encounter Plan of Treatment Upcoming Encounters Date Type Department Care Team (Late st Contact Info) Description 03/01/2025 4:15 PM EDT Office Visit Dermatology at [place] [address] [place] [address] Marek Bonilla MD [address] [place] [address] documented as of this encounter Visit Diagnoses Not on filedocumented in this encounter Care Teams Tax Compliance Manager Relationship Specialty Start Date End Date Deborah Quiroga APRN PCP - General Family Medicine 03/24/16 02/04/23 documented as of this encounter
--- OUTSIDE RECORDS SUMMARY | 2024-03-16 14:12 | XMS_ITS | Encounter Summary ---
Author Organization [facility] Address [facility] [place] [address] Care Team Providers Care Teletypesetter Monitor Name Role Phone Ashley Quirogan Cornelius ANURAG Primary Care Provider [phone] Encounter Details Date Type Department Care Team (Late st Contact Info) Description 08/11/2016 Telephone Hematology [place] [phone] Markel Borjas MD [address] [place] [address] Social History Tobacco Use Types Packs/Day Years [...] 4:15 PM EDT Office Visit Dermatology at [place] [address] [place] [address] Marek Bonilla MD [address] [place] [address] documented as of this encounter Visit Diagnoses Not on filedocumented in this encounter Care Teams Teletypesetter Monitor Relationship Specialty Start Date End Date Deborah Quiroga APRN PCP - General Family Medicine 03/24/16 02/04/23 documented as of this encounter
--- OUTSIDE RECORDS SUMMARY | 2024-03-16 14:12 | XMS_ITS | Encounter Summary ---
Author Organization [facility] [place] [address] Care Team Providers Care Aerial Sprayer Name Role Phone Deborah Quiroga APRN Primary Care Provider Encounter Details Date Type Department Care Team (Latest Contact Info) Description 07/10/2016 2:54 PM EST - 07/10/2016 11:59 PM EST Hospital [place] [phone] Discharge Disposition: Home Social History Tobacco Use [...] PM EDT Office Visit Dermatology at [place] [address] [place] [address] Marek Bonilla MD [address], [address] [place] [address] documented as of this encounter Procedures Procedure Name Priority Date/Time Associated Diagnosis Comments BONE MARROW FINAL REPORT Routine 07/10/2016 3:43 PM EST documented in this encounter Results * Bone Marrow Final Report (07/10/2016 3:43 PM EST) Final Diagnosis [id number] ?Location: OPW The signing pathologist has (i) examined the relevant preparation(s) for the specimen(s) and (ii) rendered or confirmed the diagnosis(es). . ? Bone Marrow Final DIAGNOSIS BONE MARROW (PERIPHERAL SMEAR, ASPIRATE SMEAR, TOUCH PREP, CLOT SECTION, CORE BIOPSY); [OSR# [id number], COLLECTED 06/23/2016, 19 SLIDES]: ?? 1. ??Normocellular [...] clonal lymphoproliferative or myeloproliferative ? disorder (OSR# [id number]) ?Chromosome analysis on the marrow aspirate revealed a normal female karyotype; ?46,XX[25] ??(OSR# [id number]) Electronically signed by: ??Elian Guillen MD Verified: [...] 3/uL Band/Seg 0.52 x103/uL; Lymph 0.75 x103/uL; [place] 0.15 x103/uL; Eos 0.01%; Baso 0.01 x10 [...] plasma cells represent 3-4% of the cellularity [place] ? Polytypic plasma cell staining, high background Lambda ?Polytypic plasma cell staining, high background Block: ? B2 (Core biopsy 2) Fixative: ?? Formalin ANTIBODY: ?? RESULT/COMMENT CD3 ? Scattered small lymphocytes and lymphoid aggregates highlighted CD20 ?Few scattered small lymphocytes stain ( ?? <CD3 in aggregates) CD138 ? Scattered plasma cells represent 3-4% of the cellularity [place] ? Polytypic plasma cell staining, high background Lambda ?Polytypic plasma cell staining, high background Note: The immunoperoxidase stains reported above were developed and their performance characteristics determined by [facility] Clinical Laboratories. ??They have not been cleared [...] CONSULTATION CASE A - 19 slides labeled [id number], collection date 06/23/2016. [id number] Report to: [facility] Surgical Pathology Department [facility], [facility], [address]nd Floor [address] [place], [place] [address] 07/13/2016 11:38 AM EST [facility] Consult Case 07/10/2016 3:43 PM EST 07/10/2016 3:43 PM EST Nitesh Pina Jr., MD PATHOLOGY/CYTOLOGY O RDERABLES Performing Organization Address City/State/[facility] Co de Phone Number [facility] [place] [address] documented in this encounter Visit Diagnoses Not on filedocumented in this encounter Care Teams Aerial Sprayer Relationship Specialty Start Date End Date Deborah Quiroga, ANURAG PCP - General Family Medicine 03/24/16 02/04/23 documented as of this encounter
--- OUTSIDE RECORDS SUMMARY | 2024-03-16 14:12 | XMS_ITS | Encounter Summary ---
[place] [address] Care Team Providers Care Blending Tank Helper Name Role Phone Deborah Quiroga APRN Primary Care Provider [phone] Reason for Visit * Reason Onset Date Comments Prior Authorization 09/11/2016 Neulasta Encounter Details Date Type Department Care Team (Late st Contact Info) Description 09/11/2016 Telephone Hematology [place] [phone] Monica Wick Prior Authorization (Neulasta ) Social [...] AM EST Prior Auth for Neulasta (Approved) [facility] is a covered facility under the members plan. ID# [id number] Call placed to [phone] Rationale: Can you please start a PA for this pt to receive as outpatient at [facility] on 09/16/16? 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 ??Her last ANC was 0.56 (or 560) on 08/04/16. ??This will need to be approved through her medical as out patient. J code for neulasta. ?? [id number]. Spoke w/ Anna Marie Call Reference [id number] Copay: $ Deductible is not met, patient will have out of pocket costs until deductible is met. documented in this encounter Plan of Treatment Upcoming Encounters Date Type Department Care Team (Late st Contact Info) Description 03/01/2025 4:15 PM EDT Office Visit Dermatology at [place] [address] [place] [address] Marek Bonilla MD [address], [place] [address] documented as of this encounter Visit Diagnoses Not on filedocumented in this encounter Care Teams Blending Tank Helper Relationship Specialty Start Date End Date Deborah Quiroga APRN PCP - General Family Medicine 03/24/16 02/04/23 documented as of this encounter
--- OUTSIDE RECORDS SUMMARY | 2024-03-16 14:12 | XMS_ITS | Encounter Summary ---
[place] [address] Care Team Providers Care Sales Agent Business Services Name Role Phone Deborah Quiroga ANURAG Primary Care Provider [phone] Encounter Details Date Type Department Care Team (Late st Contact Info) Description 07/22/2016 External Results Hematology [place] [address] Alexandrea Greenwood RN Neutropenia, unspecified type Social [...] EDT Office Visit Dermatology at [place] [address] [place] [phone] Marek Bonilla MD [address], [place] [address] documented as of this encounter Procedures Procedure Name Priority Date/Time Associated Diagnosis Comments COPPER, SERUM Routine 07/20/2016 10:30 AM EST Neutropenia, unspecified type CMV PCR, QUANTITATIVE Routine 07/20/2016 10:30 AM EST Neutropenia, unspecified type MONONUCLEOSIS SCREEN ([facility]) Routine 07/20/2016 10:30 AM EST Neutropenia, unspecified type CBC (WITH DIFF) Routine 07/20/2016 10:30 AM EST Neutropenia, unspecified type documented in this encounter Results * Copper, serum (07/20/2016 10:30 AM EST) Copper (NOVEMBER) 1.09 0.75 - 1.45 EXTERNAL LAB Blood specimen (specimen) 07/20/2016 10:30 AM EST Markel Borjas MD LAB SEND OUT ORDER JODIE Performing Organization Address [facility] Co de Phone Number EXTERNAL LAB * CMV PCR, Quantitative (07/20/2016 10:30 AM EST) CMV PCR,Quantitati ve undetected EXTERNAL LAB Blood specimen (specimen) 07/20/2016 10:30 AM EST Markel Borjas MD MOLECULAR ORDERABL ES Performing Organization Address [facility] Co de Phone Number EXTERNAL LAB * Mononucleosis Screen (07/20/2016 10:30 AM EST) Mononucleosis Screen neg neg - neg EXTERNAL LAB Blood specimen (specimen) 07/20/2016 10:30 AM EST Markel Borjas MD IMMUNOLOGY ORDERAB LES Performing Organization Address [facility] Co de Phone Number EXTERNAL [...] type documented in this encounter Care Teams Sales Agent Business Services Relationship Specialty Start Date End Date Deborah Quiroga, ENVIRONMENTAL SYSTEMS COORDINATOR PCP - General Family Medicine 03/24/16 02/04/23 documented as of this encounter
--- OUTSIDE RECORDS SUMMARY | 2024-03-16 14:12 | XMS_ITS | Encounter Summary ---
[place] [address] Care Team Providers Care Director Of Online Merchandising Name Role Phone Deborah Quiroga APRN Primary Care Provider [phone] Encounter Details Date Type Department Care Team (Late st Contact Info) Description 08/04/2016 External Results Hematology [place] [address] Alexandrea Greenwood RN Neutropenia, unspecified type Social [...] 4:15 PM EDT Office Visit Dermatology at [place] [address] [place] [phone] Marek Bonilla MD [address], [place] [address] documented as of this encounter Procedures Procedure [...] in this encounter Care Teams Director Of Online Merchandising Relationship Specialty Start Date End Date Deborah Quiroga, CULLET WASHER PCP - General Family Medicine 03/24/16 02/04/23 documented as of this encounter
--- OUTSIDE RECORDS SUMMARY | 2024-03-16 14:12 | XMS_ITS | Encounter Summary ---
[place] [address] Care Team Providers Care Experiential Therapist Name Role Phone Ashley Quirogan Cornelius ANURAG Primary Care Provider [phone] Reason for Visit * Reason Onset Date Comments Medical Care Coordination 09/14/2016 Encounter Details Date Type Department Care Team (Late st Contact Info) Description 09/14/2016 Telephone Hematology [place] [phone] Alexandrea Greenwood RN Medical Care Coordination Social [...] 09/14/2016 9:10 AM EST Message received from national secretary: Injection/Infusion Referral Call placed to [facility] Infusion Room Spoke charis Bragg. Services to be provided for pt are: Miles 09/16/16 Mahsa confirmed they would provide services to pt and would contact with appointment time. Pt aware to expect the phone call ??orders faxed to [phone]). documented in this encounter Plan of Treatment Upcoming Encounters Date Type Department Care Team (Late st Contact Info) Description 03/01/2025 4:15 PM EDT Office Visit Dermatology at [place] [address] [place] [phone] Marek Bonilla MD [address], [place] [address] documented as of this encounter Visit Diagnoses Not on filedocumented in this encounter Care Teams Experiential Therapist Relationship Specialty Start Date End Date Deborah Quiroga APRN PCP - General Family Medicine 03/24/16 02/04/23 documented as of this encounter
--- OUTSIDE RECORDS SUMMARY | 2024-03-16 14:12 | XMS_ITS | Encounter Summary ---
[place] [address] Care Team Providers Care Car Shakeout Operator Name Role Phone Deborah Quiroga ANURAG Primary Care Provider [phone] Reason for Visit * Reason Onset Date Comments Medical Care Coordination 07/17/2016 Encounter Details Date Type Department Care Team ([facility] Contact Info) Description 07/17/2016 Telephone Hematology [place] [phone] Alexandrea Greenwood RN Medical Care Coordination Social [...] 07/17/2016 12:07 PM EST Message received from special education secretary: Injection/Infusion Referral Call placed to [phone]). Spoke w/ Pasquale. Services to be provided for pt are: Labs @ 10am ([facility]) & Neulasta @ 11am on 07/20/16, CBC only on 07/30/16 Pasquale confirmed they would provide services to pt and I left [facility] for pt to call for appt info. Pt demographics, office note, med list and orders faxed to [facility] documented in this encounter Plan of Treatment Upcoming Encounters Date Type Department Care Team (Late st Contact Info) Description 03/01/2025 4:15 PM EDT Office Visit Dermatology at [place] [address] [place] [address] Marek Bonilal MD [address], [place] [address] documented as of this encounter Visit Diagnoses Not on filedocumented in this encounter Care Teams Car Shakeout Operator Relationship Specialty Start Date End Date Deborah Quiroga APRN PCP - General Family Medicine 03/24/16 02/04/23 documented as of this encounter
--- OUTSIDE RECORDS SUMMARY | 2024-03-16 14:12 | XMS_ITS | Encounter Summary ---
Author Organization [facility] [place] [address] Care Team Providers Care Motion Picture Operator Name Role Phone Deborah Quiroga ANURAG Primary Care Provider [phone] Encounter Details Date Type Department Care Team (Late st Contact Info) Description 07/13/2016 External [place] [phone] Provider, Scanning Social History Tobacco Use Types [...] 4:15 PM EDT Office Visit Dermatology at [place] [address] [place] [phone] Marek Bonilla MD [address], [place] [address] documented as of this encounter Procedures Procedure Name Priority Date/Time Associated Diagnosis Comments SURGICAL PATHOLOGY SCAN Routine 07/13/2016 documented in this encounter Results * Scan Doc: Surgical Pathology (07/13/2016) Nitesh Pina Jr., MD MEDIA MGR SCAN EXT O RDR/RSLT documented in this encounter Visit Diagnoses Not on filedocumented in this encounter Care Teams Motion Picture Operator Relationship Specialty Start Date End Date Deborah Quiroga APRN PCP - General Family Medicine 03/24/16 02/04/23 documented as of this encounter
--- OUTSIDE RECORDS SUMMARY | 2024-03-16 14:12 | XMS_ITS | Encounter Summary ---
Author [facility] [place] [address] Care Team Providers Care Junior Art Director Name Role Phone Deborah Quiroga APRN Primary Care Provider [phone] Encounter Details Date Type Department Care Team (Late st Contact Info) Description 08/18/2016 4:20 PM EST Clinical [place] [phone] Social History Tobacco Use Types Packs/Day Years [...] PM EDT Office Visit Dermatology at [place] [address] [place] [address] Marek Bonilla MD [address] [place] [address] documented as of this encounter Visit Diagnoses Not on filedocumented in this encounter Care Teams Junior Art Director Relationship Specialty Start Date End Date Deborah Quiroga APRN PCP - General Family Medicine 03/24/16 02/04/23 documented as of this encounter
--- OUTSIDE RECORDS SUMMARY | 2024-03-16 14:12 | XMS_ITS | Encounter Summary ---
[place] [address] Care Team Providers Care Utility Operator Name Role Phone Ashley Quirogazac Shields APRN Primary Care Provider [phone] Reason for Visit * Auth/Cert Specialty Diagnoses / Procedures Referred By Crispin t Referred To Contact Diagnoses Aortic stenosis Procedures PRO REPLACE AORT VALV, PROSTH VALV @REPLACE AORTIC VALVE, OPEN, W\CPB, W\PROSTHETIC VALVE (WRVU 41.32) Referral ID Status Reason Start Date Expiration Date Visits Re quested Visits Authorized [id number] 1 1 Encounter Details Date Type Department Care Team (Late st Contact Info) Description 09/21/2016 7:30 AM EST - 09/21/2016 12:04 PM EST Surgery [place] [address] Alirio Esparza MD @REPLACE AORTIC VALVE, OPEN, W\CPB, W\PROSTHETIC VALVE [...] Patient Age: 61 y.o. Birthdate: 1955 Language: Dutch Race: White Ethnicity: Not nor Admit Date: 09/21/2016 Discharge Date: 09/25/2016 Attending Physician: Alirio Esparza MD Follow-up Recommendations for Providers: Please continue routine management of cardiovascular risk factors including blood pressure, lipids,glucose, etc. Please note any changes to medications. Patient to follow-up with PCP, Deborah Quiroga APRN, in 1-2 weeks. Patient to follow-up with Reagent Tender Helper, Dr. Antelmo Burrell, in two weeks. Patient to follow-up with Cardiac Surgery, Dr. Alirio Esparza, to be scheduled for before 10/19/2016, with CXR, EKG, and Echo. Inpatient Provider Contact Information: [facility] Section of Cardiac Surgery [facility] [address] FAX [phone] Discharge Diagnoses (Hospital Problems) Primary Diagnoses: Secondary [...] @REPLACE AORTIC VALVE, OPEN, W\CPB, W\PROSTHETIC VALVE (VU 41.32) performed by Alirio Esparza MD at [facility] MAIN OR ??? Pro aortoplas for supravalv sten N/A 09/21/2016 @AORTOPLASTY FOR SUPRAVALVULAR STENOSIS (WRVU 29.33) performed by Alirio Esparza MD at [facility] MAIN OR Prior To Admission Medications Prescriptions [...] Alirio Esparza and/or the Cardiac Surgery Physician Rand Sewer Team may be reached at . Antibiotic prophylaxis: You will need to take antibiotics prior to many invasive tests and treatments, such as dental cleaning, which should be done every 6 months. Your primary care physician or your dentist can prescribe this medication. Please refer to the card with the [employer] Heart Association Guidelines for more information. You have been provided with 3 copies of this card. Keep one for your self. Give one to your primary care physician and one to your dentist. Please refer to the [employer] Heart Association Guidelines for more information. Good [...] Dr. Alirio Jones. You may use a [place] or treadmill but avoid any pulling [...] should resume a low fat, low cholesterol, Australian Heart Association Diet. Driving: No driving until [...] outpatient Phase 2 Cardiac Rehabilitation at [facility]. The patient agrees to a referral to this program. The referral will be sent at discharge and the patient should be contacted by the program within 1- 2 weeks from discharge. Future Appointments and Orders Future Appointments Provider Department Dept Phone 11/20/2016 11:30 AM Markel Borjas MD [facility] [phone] Future Orders Complete By Expires Echocardiogram Transthoracic([facility]) [YON295 Custom] 10/18/2016 (Approximate) 09/18/2017 Process Instructions: If the Echocardiogram is to be PERFORMED in a DH location other than [place]--STOP and order [id number], Echocardiogram South/External. Scheduling Instructions: Questions: Is a Bubble Study requested?: No Does the patient have Congenital Heart Disease?: No Does patient require sedation?: None GA rationale: Should this service be billed to the research sponsor?: EKG 12 Lead [EKG1 Custom] 10/18/2016 (Approximate) 09/25/2017 Process Instructions: Scheduling Instructions: Questions: Which DH location will this be performed?: [place] Is a rhythm strip needed?: No If EKG Reason is Pre-op Evaluation, indicate diagnosis for surgery.: Should this service be billed to the research sponsor?: XR Chest PA & Lateral (Generic) [[id number] Custom] 10/18/2016 (Approximate) 09/25/2017 Process Instructions: Scheduling Instructions: Questions: Where will study be performed?: [facility] Rad[facility] Portable exam?: No Reason for exam and clinical history: s/p AVReplacement, patch annuloplasty 1 month f/u Other pertinent information: Stat read required?: Date of injury if applicable: Requested Time: Referral to Cardiac Rehab [GKV517 Custom] As directed Process Instructions: If no progress note charted, please enter Clinical details in comments. Scheduling Instructions: Questions: My question or request is: s/p AVR. Cardiac rehab at [facility] Referral to Home Health - at DISCHARGE [DNQ6173 CPT(R)] As directed Process Instructions: Scheduling Instructions: Comments: DOCUMENTATION FOR VNA SERVICES (INCLUDING THOSE PATIENTS WITH MEDICARE COVERAGE REQUIRING HOME VNA SERVICES AND/OR HOSPICE SERVICES) PATIENT'S LOCATION: Purnimakary Galleg[address] [address] (home) No relevant phone numbers on file. Ergonomics Technician's Name: self In discussion with the attending physician, it is certified that this patient is under their care and that they, or a Nurse Practitioner, or Physician Rand Sewer who is working directly with them, hada [...] for services as follows: HOME HEALTH AGENCY: [facility] PHONE: [phone] FAX: [phone] RN orders: Cardiopulmonary assessment, incisional assessment, assess [...] issues please call the Cardiac SurgeryOffice at [phone] FOR MEDICARE ONLY: In discussion with the [...] noted. Questions: Agency name and contact information: [facility] VNA Patient location post discharge: home What services are requested: Registered Nurse Physical Therapy Occupational Therapy Start date: Responsible MD post discharge contact info: Arrangements for VNA/home care: As above. VN RN OR PCP TO PLEASE REMOVE CHEST TUBE SUTURES ON OR AFTER 09/30/16 Signed: Crispin Aranda PA-C 09/25/2016 [facility] Section of Cardiac Surgery [facility] [address] FAX [phone] Date: 09/25/2016 CC: ANURAG Alford Caryn E, APRN [address] [place] [address] documented in this encounter Discharge Instructions * [...] Alirio Esparza and/or the Cardiac Surgery Physician Rand Sewer Team may be reached at . Antibiotic prophylaxis: You will need to take antibiotics prior to many invasive tests and treatments, such as dental cleaning, which should be done every 6 months. Your primary care physician or your dentist can prescribe this medication. Please refer to the card with the [employer] Heart Association Guidelines for more information. You have been provided with 3 copies of this card. Keep one for your self. Give one to your primary care physician and one to your dentist. Please refer to the [employer] Heart Association Guidelines for more information. Good [...] Dr. Alirio Jones. You may use a [place] or treadmill but avoid any pulling [...] should resume a low fat, low cholesterol, Australian Heart Association Diet. Driving: No driving until [...] outpatient Phase 2 Cardiac Rehabilitation at [facility]. The patient agrees to a [...] PM EST Cardiac Surgery Progress Note: ID: [id number] S/p AVR, patch aortoplasty POD#2. PMH of [...] Gas) No results found for: PHART, PO2ART, AGO2SUT Assessment/Plan: TPW out this am. (+) BM. [...] Signed: Crispin Aranda PA-C 09/24/2016 Team pager: [phone]; [phone] after 5pm [facility] Section of Cardiac Surgery * Leonor Henson S, IMPORT/EXPORT ADMINISTRATOR - 09/23/2016 10:48 AM EST Cardiac Surgery Progress Note: ID: [id number] s/p AVR, patch aortoplasty POD#2. PMH of Neutropenia, HLD, HTN, Depression, obesity,. EF- 60% 24 Hour Events: transferred from CVCC to ICCU, doing well, no overnight events [...] Gas) No results found for: PHART, PO2ART, QEX7TVX Assessment/Plan: s/p AVR, patch aortoplasty POD#2. PMH [...] AM EST Cardiac Surgery Progress Note: ID: [id number] s/p AVR, patch aortoplasty POD#1. PMH of [...] NT, ND, soft. Ext: Moves all extremities. Tennyson, well perfused. Incisions: C/D/I Tubes/Lines/Drains: PIV, richi, al, TPW, Cordis, CT's LABS: Recent Labs [...] left pleural effusion. T/L/D Al ETT CVL [place] CT Pacing wires ASSESSMENT, MANAGEMENT, and DECISION [...] Outcome (s) achieved Date Met: 09/25/16 09/25/16 6640 Coping/Psychosocial Plan Of Care Reviewed With patient [...] health, home with outpatient services Lalitha Cohen [facility] Pager: [phone] Inpatient Physical Therapy Patient status, treatment interventions, and goals discussed with student. I am in agreement with all details and associated flowsheet rows as documented and was present for all aspects of the patient treatment session. Nery Jaramillo, CANDY Pager [phone] Problem: Acute Rehab Services Goal & Intervention Plan Goal: Bed Mobility Goal Stand Alone Therapy Goal Outcome: Ongoing (Interventions Implemented as Appropriate) 09/22/16 1611 09/25/16 0947 Bed Mobility Goal Bed Mobility Goal, Time to Achieve 4 days -- Bed Mobility Goal, Activity Type scoot/bridge;supine to sit/sit to supine -- Bed Mobility Goal, [place] Level independent -- Bed Mobility Goal, Additional [...] 4 days -- Gait Training Goal, [place] Level independent -- Gait Training Goal, Distance [...] assist, home with home health [facility] Pager: [phone] Inpatient Physical Therapy Patient status, treatment interventions, and goals discussed with student. I am in agreement with all details and associated flowsheet rows as documented and was present for all aspects of the patient treatment session. Nery Jaramillo, PAINT DEPARTMENT SUPERVISOR Pager [phone] Problem: Acute Rehab Services Goal & Intervention Plan Goal: Bed Mobility Goal Stand Alone Therapy Goal Outcome: Ongoing (Interventions Implemented as Appropriate) 09/22/16161009/23/161411 Bed Mobility Goal Bed Mobility Goal, Time to Achieve 4 days -- Bed Mobility Goal, Activity Type scoot/bridge;supine to sit/sit to supine -- Bed Mobility Goal, [place] Level independent -- Bed Mobility Goal, Additional Goal able to abide sternal precautions during transfers -- Bed Mobility Goal, Outcome Achieved -- goal ongoing Bed Mobility Goal, Reason Goal Not Met -- (progressing) Goal: Gait Training Goal Stand Alone Therapy Goal Outcome: Ongoing (Interventions Implemented as Appropriate) 09/22/16161009/23/16 141 Gait Training Goal Gait Training Goal, Date Established 09/22/16 -- Gait Training Goal, Time to Achieve 4 days -- Gait Training Goal, [place] Level independent -- Gait Training Goal, Distance to Achieve ascend and descends 2 steps independently -- Gait Training Goal, Outcome -- goal ongoing Gait Training Goal, Reason Goal Not Met -- (progressing) Goal: Goal Transfer Training Stand Alone Therapy Goal Outcome: Outcome (s) achieved Date Met: 09/23/16 09/22/16161009/23/16 141 Goal Transfer Training Transfer Training Goal, Time to Achieve 4 days -- Transfer Training Goal, Activity Type xte-lq-kogpo/xxdbi-vw-cen;dxi-wj-difnx/glvqb-mg-uul -- Transfer Train Goal, [place] Level independent -- Transfer Training Goal, Additional Goal abides sternal precautions -- Transfer Training Goal, Outcome -- goal met * Consult Note - Jana Crenshaw RN - 09/23/2016 9:41 AM EST [facility] CARDIAC REHABILITATION Purnima Thacker was seen today regarding participation in the outpatient Phase 2 Cardiac Rehabilitation at [facility]. The patient agrees to a [...] Review Outcome: Ongoing (Interventions Implemented as Appropriate) 09/22/161610 Coping/Psychosocial Plan Of Care Reviewed With patient [...] Another Service: (cardiac rehab) NICOLE HERNANDEZ, PT Pager:[phone] Inpatient Physical Therapy Problem: Acute Rehab Services Goal & Intervention Plan Goal: Bed Mobility Goal Stand Alone Therapy Goal Outcome: Ongoing (Interventions Implemented as Appropriate) 09/22/161610 Bed Mobility Goal Bed Mobility Goal, Time to Achieve 4 days Bed Mobility Goal, Activity Type scoot/bridge;supine to sit/sit to supine Bed Mobility Goal, [place] Level independent Bed Mobility Goal, Additional Goal able to abide sternal precautions during transfers Goal: Gait Training Goal Stand Alone Therapy Goal Outcome: Ongoing (Interventions Implemented as Appropriate) 09/22/161610 Gait Training Goal Gait Training Goal, Date Established 09/22/16 Gait Training Goal, Time to Achieve 4 days Gait Training Goal, [place] Level independent Gait Training Goal, Distance to Achieve ascend and descends 2 steps independently Goal: Goal Transfer Training Stand Alone Therapy Goal Outcome: Ongoing (Interventions Implemented as Appropriate) 09/22/161610 Goal Transfer Training Transfer Training Goal, Time to Achieve 4 days Transfer Training Goal, Activity Type yar-mj-mqpci/edlqn-bk-bpp;asu-vv-fxmnl/nrtli-hd-gdc Transfer Train Goal, [place] Level independent Transfer Training Goal, Additional Goal [...] of completing AD's at home, chooses her hlhoae-sg-vrd, Martha Thacker (home) for her DPOAH, 2nd choice in friend, Nitesh Rad, [place], [place] Current Coping/Education/Information Needs: patient sitting up [...] close by, Rashad & Raymond, and her pqinbh-ei-ssk Martha Thacker who she has chosen to be her DPOAH. Also has a friend Nitesh Leroy who lives in [place], [place], also her DPOAH choice. Behavioral Health History: none on file in e[facility] Substance Use/Abuse: none on file in [facility] Other Pertinent/Service Specific Information: none Health/Prescription Coverage: Primary Insurance: [employer] Secondary Insurance: none Prescription Coverage: yes, per patient no issues Preferred Pharmacy: ?? Other: none Primary Care Provider: Deborah Quiroga, IMPORT/EXPORT ADMINISTRATOR [phone] Patient/Caregiver Goals of Treatment: per medical team recommendations at discharge for CT surgery Potential Needs for Transition of Care: Rehab/SNF: TBD Home Health: TBD DME: no Dialysis: no Community Resources: non3 Transportation: ride home with a friend Other: none Anticipated Barriers to Discharge/Special Considerations: none anticipated at this time Plan: patient will need VNA services at discharge. The patient/payable representative has been provided a list of Home Health Agencies/DME vendors which servetheir preferred geographic area. A letter describing our affiliations was reviewed with them and they were educated about their right to choose where referrals are placed. Patient requests referral to: [facility] [employer] PHONE: [phone] FAX: [phone] Expected date of discharge: Fri/Sat? CM called VNA to confirm referral, talked with VALDO Bunn/intake who stated she was familiar w/patient & would monitor her progress through curaspan. Referral routed to the Financial Market Dealer for matching with agency/vendor and to provide any required information. A member of the Care Management team will continue to monitor progress, follow for continuity of care and assist with transition of care planning. Amanda Moreno RN Pager: [phone] * Op Note - Alirio Esparza MD - 09/21/2016 12:53 PM EST 09/23/2016 Purnima Thacker 1955 [id number] Preoperative Diagnosis: Symptomatic aortic stenosis Postoperative Diagnosis: Symptomatic aortic stenosis Procedure: Aortic valve replacement: Bovine Pericardial 25 mm Surgeon: Alirio Esparza M.D. Rand Sewer: Philip BALL Anesthesia: General endotracheal anesthesia Drains: [...] tested and the heart was de- aired. Yvette from bypass. The venous cannula was removed [...] applied. The patient was transported to the [facility] on levo. All counts were correct. [...] Operative Note Patient Name: Purnima Thacker : [id number] MR#: [id number] Case Date: 09/21/2016 Surgeon: Surgeon(s) and Role: * Alirio Esparza MD - Primary * Nico Palacios PA - Physician Rand Sewer Preoperative diagnosis: Postoperative diagnosis: Procedure(s) (LRB): @REPLACE [...] 4:15 PM EDT Office Visit Dermatology at [place] [address] [place] [address] Marek Bonilla MD [address], [place] [address] Scheduled Orders Name Type Priority Associated Diagnoses [...] IMPLANTABLE DEVICES SCAN 09/26/2016 12:00 AM EST DIE PRESSER SCAN 09/26/2016 12:00 AM EST POTASSIUM Routine [...] Routine 09/22/2016 4:00 AM EST CARDIAC ENZYMES ([facility]) Routine 09/22/2016 4:00 AM EST CREATININE Routine [...] SCAN EXT O RDR/RSLT * SCAN DOC: DIE PRESSER (09/26/2016 12:00 AM EST) Anatomical Region Laterality Modality Other Narrative 09/26/2016 12:00 AM EST Ordered by an unspecified provider. Scanning Provider MEDIA MGR SCAN EXT O RDR/RSLT * Potassium (09/25/2016 4:32 AM EST) Potassium 4.4 3.5 - 5.0 mmol/L [facility] [...] MD CHEMISTRY ORDERABLE S Performing Organization Address [facility] Co de Phone Number [facility] [place] [address] * (ABNORMAL) Differential, Automated (09/24/2016 9:56 AM EST) Neutrophil % 76.8 % [facility] Neutrophil Absolute 7.79(H) 1.70 - 6.10 x10(3)/mc L [facility] Lymph % 11.1 % [facility] Lymphocytes Abs 1.1 0.9 - 3.2 x10(3)/mc L [facility] Monocyte % 8.5 % [facility] Monocyte Abs 0.9 0.3 - 0.9 x10(3)/mc L [facility] Eos % 0.5 % [facility] Eosinophils Abs 0.0 0.0 - 0.4 x10(3)/mc L [facility] Basophil % 0.2 % [facility] Baso Absolute 0.0 0.0 - 0.1 x10(3)/mc L [facility] Immature Gran % 2.90 % [facility] Comment: Immature granulocytes(IG's)percentage and absolute count will include metamyelocytes, myelocytes, and promyelocytes. Blood smears from CBCs yielding IG's will be scanned manually for concordance. If this scan disagrees with the automated IG or if promyelocytes are noted, a manual differential will be performed. Immature Gran Absolute 0.29(H) 0.00 - 0.04 x10(3)/mc L [facility] Blood specimen (specimen) 09/24/2016 9:56 AM EST 09/24/2016 10:04 AM EST Narrative Resulting Agency Comment Spec In Lab Alirio Esparza MD HEMATOLOGY ORDERABL ES Performing Organization Address [facility]/ZIP Co de Phone Number [facility] [place] [address] * (ABNORMAL) Hemogram (09/24/2016 9:56 AM EST) White Blood Cell 10.1(H) 4.0 - 9.5 x10(3)/mc L [facility] Red Blood Cell 2.87(L) 4.00 - 5.21 x10(6)/mc L [facility] Hemoglobin 9.4(L) 11.7 - 15.5 gm/dL [facility] Hematocrit 28.3(L) 35.7 - 45.8 % [facility] Mean Cell Volume 98.6(H) 82.6 - 94.4 fL [facility] Mean Cell Hemoglobin 32.8(H) 27.1 - 32.0 pg [facility] Mean Cell Hemoglobin Concentration 33.2 31.7 - 35.0 gm/dL [facility] Platelet 141(L) 145 - 357 x10(3)/mc L [facility] RDW Standard Deviation 45.0 37.0 - 46.0 [facility] RDW coefficient of variation 12.6 11.5 - 14.1 % [facility] Mean Platelet Volume 9.4 7.6 - 12.9 fL [facility] NRBC% auto 1.1 % [facility] NRBC Absolute 0.110(H) 0.000 - 0.000 x10(3)/mc L [facility] Blood specimen (specimen) 09/24/2016 9:56 AM EST 09/24/2016 10:04 AM EST Narrative Resulting Agency Comment Spec In Lab Alirio Esparza MD HEMATOLOGY ORDERABL ES Performing Organization Address City/[facility]/ZIP Co de Phone Number [facility] [place] [address] * (ABNORMAL) Basic Metabolic Panel (non-fasting) (09/24/2016 9:56 AM EST) Glucose 111 65 - 199 mg/dL [facility] Comment:Diabetes: >=200 mg/d L plus symptoms Blood Urea Nitrogen 23(H) 8 - 18 mg/dL [facility] Comment:result rechecked-ART Creatinine 0.89 0.70 - 1.20 mg/dL [facility] Comment: Please note that the pediatric reference intervals supplied above were not validated at [facility]. Results from pediatric patients should be interpreted in conjunction to the patient's age, height and muscle mass. Sodium 138 135 - 145 mmol/L [facility] Potassium 4.2 3.5 - 5.0 mmol/L [facility] Comment: Please note: ??Patients with WBC >100,000 may have falsely elevated Potassium levels. ??For accurate Potassium quantification in these patients send serum separator tube (gold top) for subsequent determinations. ??Contact the Clinical Chemistry Laboratory if there are any questions. Chloride 98 98 - 107 mmol/L [facility] Carbon Dioxide 26 22 - 31 mmol/L [facility] Anion Gap 14 5 - 15 mmol/L [facility] Calcium 9.1 8.5 - 10.5 mg/dL [facility] Est Glomerular Filtration Rate >60 [...] the following links into your internet browser. [email or web address] [email or web address] Blood specimen (specimen) 09/24/2016 9:56 AM EST 09/24/2016 10:04 AM EST Narrative Resulting Agency Comment Spec In Lab Alirio Esparza MD CHEMISTRY ORDERABLE S [facility] [place] [address] * XR Chest PA & Lateral (Generic) [...] EST) Potassium 4.5 3.5 - 5.0 mmol/L [facility] [...] MD CHEMISTRY ORDERABLE S Performing Organization Address [facility]/ZIP Co de Phone Number [facility] [place] [address] * POCT Glucose (09/22/2016 8:17 AM EST) Glucose, POC 131 65 - 199 mg/dL [facility] Comment: Supplemental ranges: <140 mg/dL before meals <180 mg/dL all other times of the day Blood specimen (specimen) 09/22/2016 8:17 AM EST 09/22/2016 8:17 AM EST Alirio Esparza MD POINT OF CARE TEST ORDERABLES Performing Organization Address [facility] Co de Phone Number [facility] [place] [address] * POCT Glucose (09/22/2016 4:01 AM EST) Glucose, POC 135 65 - 199 mg/dL [facility] Comment: Supplemental ranges: <140 mg/dL before meals <180 mg/dL all other times of the day Blood specimen (specimen) 09/22/2016 4:01 AM EST 09/22/2016 4:01 AM EST Alirio Esparza MD POINT OF CARE TEST ORDERABLES Performing Organization Address [facility] Co de Phone Number [facility] [place] [address] * Scan, Peripheral Blood (09/22/2016 4:00 AM EST) Plat estimate Normal [facility] RBC Morphology Abnormal [facility] Macrocyte 1-5 /HPF [facility] Plat, Giant Less than 1 /HPF [facility] Blood specimen (specimen) 09/22/2016 4:00 AM EST 09/22/2016 4:34 AM EST Narrative Resulting Agency Comment Spec In Lab Alirio Esparza MD HEMATOLOGY ORDERABL ES Performing Organization Address [facility]/ZIP Co de Phone Number [facility] [place] [address] * Electrolytes panel (09/22/2016 4:00 AM EST) Pathologist [facility] Sodium 145 135 - 145 mmol/L [facility] Potassium 4.4 3.5 - 5.0 mmol/L [facility] Comment: Please note: ??Patients with WBC >100,000 may have falsely elevated Potassium levels. ??For accurate Potassium quantification in these patients send serum separator tube (gold top) for subsequent determinations. ??Contact the Clinical Chemistry Laboratory if there are any questions. Chloride 107 98 - 107 mmol/L [facility] Carbon Dioxide 24 22 - 31 mmol/L [facility] Anion Gap 14 5 - 15 mmol/L [facility] Blood specimen (specimen) Venous Draw / Unknown 09/22/2016 4:00 AM EST 09/22/2016 4:34 AM EST Narrative Resulting Agency Comment Spec In Lab Alirio Esparza MD CHEMISTRY ORDERABLE S Performing Organization Address [facility]/ZIP Co de Phone Number [facility] [place] [address] * (ABNORMAL) Differential, Automated (09/22/2016 4:00 AM EST) Pathologist [facility] Neutrophil % 70.9 % [facility] Neutrophil Absolute 5.33 1.70 - 6.10 x10(3)/mc L [facility] Lymph % 9.1 % [facility] Lymphocytes Abs 0.7(L) 0.9 - 3.2 x10(3)/mc L [facility] Monocyte % 18.0 % [facility] Monocyte Abs 1.4(H) 0.3 - 0.9 x10(3)/mc L [facility] Eos % 0.0 % [facility] Eosinophils Abs 0.0 0.0 - 0.4 x10(3)/ L [facility] Basophil % 0.1 % [facility] Baso Absolute 0.0 0.0 - 0.1 x10(3)/ L [facility] Immature Gran % 1.90 % [facility] Comment: Immature granulocytes(IG's)percentage and absolute count will include metamyelocytes, myelocytes, and promyelocytes. Blood smears from CBCs yielding IG's will be scanned manually for concordance. If this scan disagrees with the automated IG or if promyelocytes are noted, a manual differential will be performed. Immature Gran Absolute 0.14(H) 0.00 - 0.04 x10(3)/[facility] Blood specimen (specimen) 09/22/2016 4:00 AM EST 09/22/2016 4:34 AM EST Narrative Resulting Agency Comment Spec In Lab Alirio Esparza MD HEMATOLOGY ORDERABL ES Performing Organization Address City/State/[facility] Co de Phone Number [facility] [place] [phone] * (ABNORMAL) Hemogram (09/22/2016 4:00 AM EST) White Blood Cell 7.5 4.0 - 9.5 x10(3)/ L [facility] Red Blood Cell 2.93(L) 4.00 - 5.21 x10(6)/ L [facility] Hemoglobin 9.2(L) 11.7 - 15.5 gm/dL [facility] Hematocrit 28.0(L) 35.7 - 45.8 % [facility] Mean Cell Volume 95.6(H) 82.6 - 94.4 fL [facility] Mean Cell Hemoglobin 31.4 27.1 - 32.0 pg [facility] Mean Cell Hemoglobin Concentration 32.9 31.7 - 35.0 gm/dL [facility] Platelet 161 145 - 357 x10(3)/ L [facility] RDW Standard Deviation 44.0 37.0 - 46.0 fL [facility] RDW coefficient of variation 12.6 11.5 - 14.1 % [facility] Mean Platelet Volume 9.3 7.6 - 12.9 fL [facility] NRBC% auto 0.3 % [facility] NRBC Absolute 0.020(H) 0.000 - 0.000 x10(3)/mc L [facility] Blood specimen (specimen) 09/22/2016 4:00 AM EST 09/22/2016 4:34 AM EST Narrative Resulting Agency Comment Spec In Lab Alirio Esparza MD HEMATOLOGY ORDERABL ES [facility] [place] [phone] * (ABNORMAL) Cardiac Enzymes (09/22/2016 4:00 AM EST) Troponin-T 0.13(H) <=0.03 ng/mL [facility] Comment: 0.03 ng/mL: Represents the 99th percentile upper reference limit for normals. >0.03 ng/mL: Elevated cardiac troponin T level indicative of myocardial damage. Diagnosis of acute, evolving or recent [place] requires a typical rise and gradual fall [...] consensus document of the Joint Society of Cardiology/[place] College of Cardiology Committee for the redefinition of myocardial infarction. ??Journal of the [place] College of Cardiology 2000; 36: 959-969] Creatine Kinase 338(H) 0 - 160 unit/L [facility] Blood specimen (specimen) 09/22/2016 4:00 AM EST 09/22/2016 4:34 AM EST Narrative Resulting Agency Comment Spec In Lab Alirio Esparza MD CHEMISTRY ORDERABLE S Performing Organization Address [facility] Co de Phone Number [facility] [place] [address] * (ABNORMAL) Glucose, fasting (09/22/2016 4:00 AM EST) Glucose Fasting 137(H) 65 - 99 mg/dL [facility] Comment: ?Fasting* Glucose Interpretive Criteria [...] of Diabetes Mellitus, Position Statement from the [place] Diabetes Association. ??Diabetes Care, Volume 33, Supplement 1, Aug 2009 Blood specimen (specimen) 09/22/2016 4:00 AM EST 09/22/2016 4:34 AM EST Narrative Resulting Agency Comment Spec In Lab Alirio Esparza MD CHEMISTRY ORDERABLE S Performing Organization Address [facility] Co de Phone Number [facility] [address] * (ABNORMAL) Creatinine (09/22/2016 4:00 AM EST) Creatinine 0.69(L) 0.70 - 1.20 mg/dL [facility] Comment: Please note that the pediatric reference intervals supplied above were not validated at [facility]. Results from pediatric patients should be interpreted [...] the following links into your internet browser. [email or web address] Blood specimen (specimen) 09/22/2016 4:00 AM EST 09/22/2016 4:34 AM EST Narrative Resulting Agency Comment Spec In Lab Alirio Esparza MD CHEMISTRY ORDERABLE S Performing Organization Address [facility] Co de Phone Number [facility] [place] [address] * BUN (09/22/2016 4:00 AM EST) Blood Urea Nitrogen 10 8 - 18 mg/dL [facility] Blood specimen (specimen) 09/22/2016 4:00 AM EST 09/22/2016 4:34 AM EST Narrative Resulting Agency Comment Spec In Lab Alirio Esparza MD CHEMISTRY ORDERABLE S Performing Organization Address [facility] Co de Phone Number [facility] [place] [address] * POCT Glucose (09/21/2016 9:59 PM EST) Glucose, POC 146 65 - 199 mg/dL [facility] Comment: Supplemental ranges: <140 mg/dL before meals <180 mg/dL all other times of the day Blood specimen (specimen) 09/21/2016 9:59 PM EST 09/21/2016 9:59 PM EST Alirio Esparza MD POINT OF CARE TEST ORDERABLES Performing Organization Address City/[facility] Co de Phone Number [facility] [place] [address] * POCT Glucose (09/21/2016 7:26 PM EST) [facility] Glucose, POC 152 65 - 199 mg/dL [facility] Comment: Supplemental ranges: <140 mg/dL before meals <180 mg/dL all other times of the day Blood specimen (specimen) 09/21/2016 7:26 PM EST 09/21/2016 7:26 PM EST Alirio Esparza MD POINT OF CARE TEST ORDERABLES [facility] [place] [address] * POCT Glucose (09/21/2016 6:00 PM EST) [facility] Glucose, POC 146 65 - 199 mg/dL [facility] Comment: Supplemental ranges: <140 mg/dL before meals <180 mg/dL all other times of the day Blood specimen (specimen) 09/21/2016 6:00 PM EST 09/21/2016 6:00 PM EST Alirio Esparza MD POINT OF CARE TEST ORDERABLES [facility] [place] [address] * (ABNORMAL) BLOOD GAS 2 ARTERIAL (09/21/2016 4:42 PM EST) [facility] pH, Arterial 7.35(L) 7.35 - 7.45 [facility] PCO2, Arterial 48(H) 35 - 45 mmHg [facility] PO2, Arterial 108(H) 85 - 104 mmHg [facility] Bicarbonate, Arterial 26.0 20.0 - 26.0 mmol/L [facility] Base Excess, Arterial 0.5 -3.0 - 3.0 mmol/L [facility] Hgb Blood Gas 10.4(L) 11.7 - 15.5 gm/dL [facility] Oxyhemoglobin, Arterial 96.2 94.0 - 97.0 % [facility] Carboxyhemoglob in, Arterial 0.0 % [facility] Comment: Nonsmokers: 0.5-1.5% COHB Smokers: Variable, but usually less than 10% Toxic: 20-30% COHB Lethal: Greater than 60% COHB Methemoglobin, Arterial 0.7 <=1.5 % [facility] Na Whole Blood 139 135 - 145 mmol/L [facility] Whole Blood 106 98 - 107 mmol/L [facility] Gluc Whole Bld 147 65 - 199 mg/dL [facility] Comment:Diabetes: >=200 mg/d L plus symptoms. Lactate WB 1.2 0.5 - 2.2 mmol/L [facility] FIO2 Art 40 % [facility] PF Ratio Art [address] [facility] Blood specimen (specimen) 09/21/2016 4:42 PM EST 09/21/2016 4:42 PM EST Alirio Esparza MD POINT OF CARE TEST ORDERABLES [facility] [place] [address] * POCT Glucose (09/21/2016 4:07 PM EST) Glucose, POC 150 65 - 199 mg/dL [facility] Comment: Supplemental ranges: <140 mg/dL before meals <180 mg/dL all other times of the day Blood specimen (specimen) 09/21/2016 4:07 PM EST 09/21/2016 4:07 PM EST Alirio Esparza MD POINT OF CARE TEST ORDERABLES Performing Organization Address [facility] Co de Phone Number [facility] [address] * (ABNORMAL) Hemoglobin (09/21/2016 4:05 PM EST) Hemoglobin 9.9(L) 11.7 - 15.5 gm/dL [facility] Blood specimen (specimen) 09/21/2016 4:05 PM EST 09/21/2016 4:20 PM EST Narrative Resulting Agency Comment Spec In Lab Alirio Esparza MD HEMATOLOGY ORDERABL ES Performing Organization Address [facility] Co de Phone Number [facility] [place] [address] * Potassium (09/21/2016 4:05 PM EST) [facility] Potassium 4.6 3.5 - 5.0 mmol/L [facility] [...] MD CHEMISTRY ORDERABLE S Performing Organization Address [facility] Co de Phone Number [facility] [address] * POCT Glucose (09/21/2016 2:52 PM EST) Glucose, POC 117 65 - 199 mg/dL [facility] Comment: Supplemental ranges: <140 mg/dL before meals <180 mg/dL all other times of the day Blood specimen (specimen) 09/21/2016 2:52 PM EST 09/21/2016 2:52 PM EST Alirio Esparza MD POINT OF CARE TEST ORDERABLES Performing Organization Address [facility] Co de Phone Number [facility] [place] [address] * POCT Glucose (09/21/2016 1:51 PM EST) Glucose, POC 108 65 - 199 mg/dL [facility] Comment: Supplemental ranges: <140 mg/dL before meals <180 mg/dL all other times of the day Blood specimen (specimen) 09/21/2016 1:51 PM EST 09/21/2016 1:51 PM EST Alirio Esparza MD POINT OF CARE TEST ORDERABLES Performing Organization Address [facility] de Phone Number [facility] [place] [address] * POCT Glucose (09/21/2016 12:54 PM EST) Glucose, POC 128 65 - 199 mg/dL [facility] Comment: Supplemental ranges: <140 mg/dL before meals <180 mg/dL all other times of the day Blood specimen (specimen) 09/21/2016 12:54 PM EST 09/21/2016 12:54 PM EST Alirio Esparza MD POINT OF CARE TEST ORDERABLES Performing Organization Address [facility] Co de Phone Number [facility] [address] * EKG 12 Lead (09/21/2016 12:26 PM EST) Ventricular rate 87 BPM MUSE SYSTEM Atrial Rate 87 BPM MUSE SYSTEM P-R Interval 256 ms MUSE SYSTEM QRS Duration 90 ms MUSE SYSTEM Q-T Interval 406 ms MUSE SYSTEM QTC Calculated (Bezet) 488 ms MUSE SYSTEM Calculated P [place] 24 degrees MUSE SYSTEM Calculated R [place] 21 degrees MUSE SYSTEM Calculated T [place] -5 degrees MUSE SYSTEM INTERPRETATION Sinus rhythm with 1st degree A-V block Nonspecific T wave abnormality Prolonged QT Abnormal ECG When compared with ECG of 19-MAY-2016 11:43, [place] interval has increased T wave inversion now [...] course of the esophagus and below the [id number]. There is a right IJ PA catheter [...] the course of theesophagus and below the [id number]. There is a right IJ PA catheter [...] EST) pH, Arterial 7.41 7.35 - 7.45 [facility] PCO2, Arterial 42 35 - 45 mmHg [facility] PO2, Arterial 356(H) 85 - 104 mmHg [facility] Bicarbonate, Arterial 26.2(H) 20.0 - 26.0 mmol/L [facility] Base Excess, Arterial 1.6 -3.0 - 3.0 mmol/L [facility] Hgb Blood Gas 10.7(L) 11.7 - 15.5 gm/dL [facility] Oxyhemoglobin, Arterial 98.1(H) 94.0 - 97.0 % [facility] Carboxyhemoglob in, Arterial 0.3 % [facility] Comment: Nonsmokers: 0.5-1.5% COHB Smokers: Variable, but usually less than 10% Toxic: 20-30% COHB Lethal: Greater than 60% COHB Methemoglobin, Arterial 0.8 <=1.5 % [facility] Na Whole Blood 140 135 - 145 mmol/L [facility] K Whole Blood 3.8 3.5 - 5.0 mmol/L [facility] Comment: Please note: Patients with WBC >100,000 may have falsely elevated Potassium levels. Contact the Clinical Chemistry Laboratory if there are any questions. ICa Whole Blood 1.15(L) 1.15 - 1.33 mmol/L [facility] Comment: Note: ??Total bilirubin higher than 20 mg/dL may lead to falsely low ionized calcium. CL Whole Blood 106 98 - 107 mmol/L [facility] Gluc Whole Bld 135 65 - 199 mg/dL [facility] Comment:Diabetes: >=200 mg/d L plus symptoms. Lactate WB 2.2 0.5 - 2.2 mmol/L [facility] FIO2 Art 100 % [facility] PF Ratio Art 356 [facility] Blood specimen (specimen) 09/21/2016 12:20 PM EST 09/21/2016 12:20 PM EST Alirio Esparza MD POINT OF CARE TEST ORDERABLES Performing Organization Address City/State/[facility] Co de Phone Number [facility] [address] * (ABNORMAL) BLOOD GAS 2 ARTERIAL (09/21/2016 10:54 AM EST) pH, Arterial 7.43 7.35 - 7.45 [facility] PCO2, Arterial 40 35 - 45 mmHg [facility] PO2, Arterial 297(H) 85 - 104 mmHg [facility] Bicarbonate, Arterial 26.0 20.0 - 26.0 mmol/L [facility] Base Excess, Arterial 1.6 -3.0 - 3.0 mmol/L [facility] Hgb Blood Gas 8.6(L) 11.7 - 15.5 gm/dL [facility] Oxyhemoglobin, Arterial 98.6(H) 94.0 - 97.0 % [facility] Carboxyhemoglob in, Arterial 0.5 % [facility] Comment: Nonsmokers: 0.5-1.5% COHB Smokers: Variable, but usually less than 10% Toxic: 20-30% COHB Lethal: Greater than 60% COHB Methemoglobin, Arterial 0.3 <=1.5 % [facility] Na Whole Blood 134(L) 135 - 145 mmol/L [facility] K Whole Blood 4.5 3.5 - 5.0 mmol/L [facility] Comment: Please note: Patients with WBC >100,000 may have falsely elevated Potassium levels. Contact the Clinical Chemistry Laboratory if there are any questions. ICa Whole Blood 1.16 1.15 - 1.33 mmol/L [facility] Comment: Note: ??Total bilirubin higher than 20 mg/dL may lead to falsely low ionized calcium. CL Whole Blood 104 98 - 107 mmol/L [facility] Gluc Whole Bld 240(H) 65 - 199 mg/dL [facility] Comment:Diabetes: >=200 mg/d L plus symptoms. Lactate WB 2.4(H) 0.5 - 2.2 mmol/L [facility] FIO2 Art 95 % [facility] Flow Art 0.7 LPM [facility] PF Ratio Art [address] [facility] Temp Art 36.7 Celsius [facility] Blood specimen (specimen) 09/21/2016 10:54 AM EST 09/21/2016 10:54 AM EST Alirio Esparza MD POINT OF CARE TEST ORDERABLES Performing Organization Address [facility] Co de Phone Number [facility] [address] * Thrombin time (09/21/2016 10:50 AM EST) Thrombin Time 19 15 - 20 sec [facility] Comment: A prolongation in the [...] MD HEMATOLOGY ORDERABLE S Performing Organization Address [facility]/ZIP Co de Phone Number [facility] [place] [address] * Fibrinogen (09/21/2016 10:50 AM EST) Fibrinogen 228 180 - 510 mg/dL [facility] Comment: Called by: JONNATHAN, Read back by: MICHELLE ALEJANDRE_, Date/Time:09/21/16 11:11. A fibrinogen level >100 mg/dL is adequate for hemostasis in most patients without underlying bleeding disorders. Blood specimen (specimen) 09/21/2016 10:50 AM EST 09/21/2016 10:56 AM EST Narrative Resulting Agency Comment Spec In Lab Luis Enrique Quarles MD HEMATOLOGY ORDERABLE S Performing Organization Address [facility] de Phone Number [facility] [place] [address] * APTT (09/21/2016 10:50 AM EST) Partial Thromboplastin Time 32 25 - 35 sec [facility] Comment: The recommended therapeutic range for full dose, unfractionated heparin at [facility] is 80 ? 114 seconds. The use of the anti-Xa (heparin) level rather than the PTT is recommended for monitoring anticoagulation intensity in critically ill patients receiving unfractionated heparin by continuous IV infusion. Blood specimen (specimen) 09/21/2016 10:50 AM EST 09/21/2016 10:56 AM EST Narrative Resulting Agency Comment Spec In Lab Luis Enrique Quarles MD HEMATOLOGY ORDERABLE S Performing Organization Address [facility] de Phone Number [facility] [address] * (ABNORMAL) Prothrombin Time (09/21/2016 10:50 AM EST) Prothrombin Time 18.7(H) 12.0 - 15.0 sec [facility] Comment: An INR <2.0 indicates [...] International Normalization Ratio 1.5(H) 0.9 - 1.1 [facility] Blood specimen (specimen) 09/21/2016 10:50 AM EST 09/21/2016 10:56 AM EST Narrative Resulting Agency Comment Spec In Lab Luis Enrique Quarles MD HEMATOLOGY ORDERABLE S [facility] [address] * (ABNORMAL) Hemogram (09/21/2016 10:50 AM EST) White Blood Cell 14.7(H) 4.0 - 9.5 x10(3)/mc L [facility] Red Blood Cell 2.40(L) 4.00 - 5.21 x10(6)/mc L [facility] Hemoglobin 7.9(L) 11.7 - 15.5 gm/dL [facility] Hematocrit 23.2(L) 35.7 - 45.8 % [facility] Comment: This result has been called to MICHELLE GRIGSBY by ASHU MORENO on 09 21 2016 at 1102, and has been read back. Mean Cell Volume 96.7(H) 82.6 - 94.4 fL [facility] Mean Cell Hemoglobin 32.9(H) 27.1 - 32.0 pg [facility] Mean Cell Hemoglobin Concentration 34.1 31.7 - 35.0 gm/dL [facility] Platelet 117(L) 145 - 357 x10(3)/mc L [facility] RDW Standard Deviation 42.6 37.0 - 46.0 fL [facility] RDW coefficient of variation 12.1 11.5 - 14.1 % [facility] Mean Platelet Volume 9.2 7.6 - 12.9 fL [facility] NRBC% auto 0.1 % [facility] NRBC Absolute 0.020(H) 0.000 - 0.000 x10(3)/mc L [facility] Blood specimen (specimen) 09/21/2016 10:50 AM EST 09/21/2016 10:56 AM EST Narrative Resulting Agency Comment Spec In Lab Luis Enrique Quarles MD HEMATOLOGY ORDERABLE S Performing Organization Address [facility]/[place] [address] * Prepare Platelets, Apheresis (09/21/2016 10:30 AM EST) Pathologist [facility] Dispensed? Yes [facility] Blood specimen (specimen) 09/21/2016 10:30 AM EST 09/21/2016 10:28 AM EST Alirio Esparza MD BLOOD BANK PRODUCT ORDERABLES Performing Organization Address [facility] [place] [address] * (ABNORMAL) BLOOD GAS 2 ARTERIAL (09/21/2016 10:05 AM EST) pH, Arterial 7.33(L) 7.35 - 7.45 [facility] PCO2, Arterial 54(Critic al) 35 - 45 mmHg [facility] Comment:Noted by precision mechanical instrument maker. PO2, Arterial 218(H) 85 - 104 mmHg [facility] Bicarbonate, Arterial 27.9(H) 20.0 - 26.0 mmol/L [facility] Base Excess, Arterial 2.0 -3.0 - 3.0 mmol/L [facility] Hgb Blood Gas 8.6(L) 11.7 - 15.5 gm/dL [facility] Oxyhemoglobin, Arterial 98.4(H) 94.0 - 97.0 % [facility] Carboxyhemoglo bin, Arterial 0.5 % [facility] Comment: Nonsmokers: 0.5-1.5% COHB Smokers: Variable, but usually less than 10% Toxic: 20-30% COHB Lethal: Greater than 60% COHB Methemoglobin, Arterial 0.3 <=1.5 % [facility] Na Whole Blood 129(L) 135 - 145 mmol/L [facility] K Whole Blood 6.2(Criti gabrielle) 3.5 - 5.0 mmol/L [facility] Comment: Noted by precision mechanical instrument maker. Please note: Patients with WBC >100,000 may have falsely elevated Potassium levels. Contact the Clinical Chemistry Laboratory if there are any questions. ICa Whole Blood 0.95(L) 1.15 - 1.33 mmol/L [facility] Comment: Note: ??Total bilirubin higher than 20 mg/dL may lead to falsely low ionized calcium. CL Whole Blood 100 98 - 107 mmol/L [facility] Gluc Whole Bld 289(H) 65 - 199 mg/dL [facility] Comment:Diabetes: >=200 mg/d L plus symptoms. Lactate WB 2.2 0.5 - 2.2 mmol/L [facility] Temp Art 37.0 Celsius [facility] Blood specimen (specimen) 09/21/2016 10:05 AM EST 09/21/2016 10:05 AM EST Alirio Esparza MD POINT OF CARE TEST ORDERABLES [facility] [place] [address] * (ABNORMAL) BLOOD GAS 2 ARTERIAL (09/21/2016 9:44 AM EST) pH, Arterial 7.22(Criti gabrielle) 7.35 - 7.45 [facility] Comment:Noted by precision mechanical instrument maker. PCO2, Arterial 70(Critica l) 35 - 45 mmHg [facility] Comment:Noted by precision mechanical instrument maker. PO2, Arterial 224(H) 85 - 104 mmHg [facility] Bicarbonate, Arterial 27.8(H) 20.0 - 26.0 mmol/L [facility] Base Excess, Arterial 0.0 -3.0 - 3.0 mmol/L [facility] Hgb Blood Gas 8.7(L) 11.7 - 15.5 gm/dL [facility] Oxyhemoglobin, Arterial 98.5(H) 94.0 - 97.0 % [facility] Carboxyhemoglob in, Arterial 0.6 % [facility] Comment: Nonsmokers: 0.5-1.5% COHB Smokers: Variable, but usually less than 10% Toxic: 20-30% COHB Lethal: Greater than 60% COHB Methemoglobin, Arterial 0.3 <=1.5 % [facility] Na Whole Blood 131(L) 135 - 145 mmol/L [facility] K Whole Blood 5.9(H) 3.5 - 5.0 mmol/L [facility] Comment: Please note: Patients with WBC >100,000 may have falsely elevated Potassium levels. Contact the Clinical Chemistry Laboratory if there are any questions. ICa Whole Blood 1.00(L) 1.15 - 1.33 mmol/L [facility] Comment: Note: ??Total bilirubin higher than 20 mg/dL may lead to falsely low ionized calcium. CL Whole Blood 101 98 - 107 mmol/L [facility] Gluc Whole Bld 227(H) 65 - 199 mg/dL [facility] Comment:Diabetes: >=200 mg/d L plus symptoms. Lactate WB 2.1 0.5 - 2.2 mmol/L [facility] Blood specimen (specimen) 09/21/2016 9:44 AM EST 09/21/2016 9:44 AM EST Alirio Esparza MD POINT OF CARE TEST ORDERABLES [facility] [place] [address] * (ABNORMAL) Hemoglobin (09/21/2016 9:42 AM EST) Hemoglobin 7.2(L) 11.7 - 15.5 gm/dL [facility] Blood specimen (specimen) 09/21/2016 9:42 AM EST 09/21/2016 9:51 AM EST Narrative Resulting Agency Comment Spec In Lab Alirio Esparza MD HEMATOLOGY ORDERABL ES [facility] [place] [place] [address] * Platelet count (09/21/2016 9:42 AM EST) Platelet 159 145 - 357 x10(3)/mc L [facility] Immature Plt % 1.6 0.0 - 7.4 % [facility] Comment: Limitation of the Immature Platelet Fraction (IPF)-May be less reliable when the platelet count is less than 52q133/uL due to statistical imprecision. The IPF value [...] in a decreased state of production. References: [employer] The Clinical Value of the Immature Platelet Fraction (IPF) in Cell Recovery Document Number 10-1143 12/2010 [employer] The Role of the Immature Platelet Fraction (IPF) in the Differential Diagnosis of Thrombocytopenia, Document [id number] V05 P0514 Blood specimen (specimen) 09/21/2016 9:42 AM EST 09/21/2016 9:51 AM EST Narrative Resulting Agency Comment Spec In Lab Alirio Esparza MD HEMATOLOGY ORDERABL ES [facility] [place] [address] * (ABNORMAL) Hematocrit (09/21/2016 9:42 AM EST) Hematocrit 21.6(L) 35.7 - 45.8 % [facility] Comment: This result has been called to MICHELLE ALEJANDRE by Serjio Frazier on 09 21 2016 at 0957, and has been read back. Blood specimen (specimen) 09/21/2016 9:42 AM EST 09/21/2016 9:51 AM EST Narrative Resulting Agency Comment Spec In Lab Alirio Esparza MD HEMATOLOGY ORDERABL ES Performing Organization Address [facility] de Phone Number [facility] [place] [address] * Fibrinogen (09/21/2016 9:42 AM EST) Fibrinogen 219 180 - 510 mg/dL [facility] Comment: Called by: JONNATHAN, Read back by: MICHELLE ALEJANDRE_, Date/Time:09/21/16 10:03_. A fibrinogen level >100 mg/dL is adequate for hemostasis in most patients without underlying bleeding disorders. Blood specimen (specimen) 09/21/2016 9:42 AM EST 09/21/2016 9:51 AM EST Narrative Resulting Agency Comment Spec In Lab Alirio Esparza MD HEMATOLOGY ORDERABL ES Performing Organization Address [facility] de Phone Number [facility] [place] [address] * (ABNORMAL) BLOOD GAS 2 ARTERIAL (09/21/2016 9:10 AM EST) pH, Arterial 7.36 7.35 - 7.45 [facility] PCO2, Arterial 48(H) 35 - 45 mmHg [facility] PO2, Arterial 295(H) 85 - 104 mmHg [facility] Bicarbonate, Arterial 26.0 20.0 - 26.0 mmol/L [facility] Base Excess, Arterial 0.5 -3.0 - 3.0 mmol/L [facility] Hgb Blood Gas 8.0(L) 11.7 - 15.5 gm/dL [facility] Oxyhemoglobin, Arterial 98.3(H) 94.0 - 97.0 % [facility] Carboxyhemoglob in, Arterial 1.0 % [facility] Comment: Nonsmokers: 0.5-1.5% COHB Smokers: Variable, but usually less than 10% Toxic: 20-30% COHB Lethal: Greater than 60% COHB Methemoglobin, Arterial 0.3 <=1.5 % [facility] Na Whole Blood 135 135 - 145 mmol/L [facility] K Whole Blood 5.4(H) 3.5 - 5.0 mmol/L [facility] Comment: Please note: Patients with WBC >100,000 may have falsely elevated Potassium levels. Contact the Clinical Chemistry Laboratory if there are any questions. ICa Whole Blood 0.93(L) 1.15 - 1.33 mmol/L [facility] Comment: Note: ??Total bilirubin higher than 20 mg/dL may lead to falsely low ionized calcium. CL Whole Blood 102 98 - 107 mmol/L [facility] Gluc Whole Bld 195 65 - 199 mg/dL [facility] Comment:Diabetes: >=200 mg/d L plus symptoms. Lactate WB 1.8 0.5 - 2.2 mmol/L [facility] Temp Art 37.0 Celsius [facility] Blood specimen (specimen) 09/21/2016 9:10 AM EST 09/21/2016 9:10 AM EST Alirio Esparza MD POINT OF CARE TEST ORDERABLES Performing Organization Address City/State/[facility] Co de Phone Number [facility] [address] * Surgical Pathology Report (09/21/2016 9:09 AM EST) Final Diagnosis [id number] ?Location: 3T The signing pathologist has (i) [...] ?. (R1) ??ADELITA 09/24/2016 9:32 AM EST [facility] AORTIC STRUCTURE / Unknown 09/21/2016 9:09 AM EST 09/21/2016 9:09 AM EST Alirio Esparza MD PATHOLOGY/CYTOLOGY ORDERABLES Performing Organization Address City/[facility] Co de Phone Number [facility] [address] * Specimen to Pathology (surgical or derm) (09/21/2016 9:09 AM EST) AP Specimen 09/21/2016 9:09 AM EST 09/21/2016 9:09 AM EST Narrative [facility] - 09/21/2016 9:09 AM EST Specimen requisition ordered. ??Separate Pathology report to follow Alirio Esparza MD PATHOLOGY/CYTOLOGY ORDERABLES Performing Organization Address [facility]/ZIP Co de Phone Number [facility] [address] * (ABNORMAL) BLOOD GAS 2 ARTERIAL (09/21/2016 8:50 AM EST) pH, Arterial 7.41 7.35 - 7.45 [facility] PCO2, Arterial 33(L) 35 - 45 mmHg [facility] PO2, Arterial 348(H) 85 - 104 mmHg [facility] Bicarbonate, Arterial 20.6 20.0 - 26.0 mmol/L [facility] Base Excess, Arterial -4.1(L) -3.0 - 3.0 mmol/L [facility] Hgb Blood Gas 9.5(L) 11.7 - 15.5 gm/dL [facility] Oxyhemoglobin, Arterial 98.8(H) 94.0 - 97.0 % [facility] Carboxyhemoglob in, Arterial 0.3 % [facility] Comment: Nonsmokers: 0.5-1.5% COHB Smokers: Variable, but usually less than 10% Toxic: 20-30% COHB Lethal: Greater than 60% COHB Methemoglobin, Arterial 0.3 <=1.5 % [facility] Na Whole Blood 137 135 - 145 mmol/L [facility] K Whole Blood 4.0 3.5 - 5.0 mmol/L [facility] [...] Whole Blood 105 98 - 107 mmol/L [facility] Gluc Whole Bld 93 65 - 199 mg/dL [facility] Comment:Diabetes: >=200 mg/d L plus symptoms. Lactate WB 1.0 0.5 - 2.2 mmol/L [facility] Blood specimen (specimen) 09/21/2016 8:50 AM EST 09/21/2016 8:50 AM EST Alirio Esparza MD POINT OF CARE TEST ORDERABLES [facility] [place] [address] * (ABNORMAL) BLOOD GAS 2 ARTERIAL (09/21/2016 8:18 AM EST) pH, Arterial 7.42 7.35 - 7.45 [facility] PCO2, Arterial 36 35 - 45 mmHg [facility] PO2, Arterial 283(H) 85 - 104 mmHg [facility] Bicarbonate, Arterial 22.8 20.0 - 26.0 mmol/L [facility] Base Excess, Arterial -2.0 -3.0 - 3.0 mmol/L [facility] Hgb Blood Gas 12.6 11.7 - 15.5 gm/dL [facility] Oxyhemoglobin, Arterial 99.0(H) 94.0 - 97.0 % [facility] Carboxyhemoglob in, Arterial 0.6 % [facility] Comment: Nonsmokers: 0.5-1.5% COHB Smokers: Variable, but usually less than 10% Toxic: 20-30% COHB Lethal: Greater than 60% COHB Methemoglobin, Arterial 0.0 <=1.5 % [facility] Na Whole Blood 144 135 - 145 mmol/L [facility] K Whole Blood 4.0 3.5 - 5.0 mmol/L [facility] Comment: Please note: Patients with WBC >100,000 may have falsely elevated Potassium levels. Contact the Clinical Chemistry Laboratory if there are any questions. ICa Whole Blood 1.22 1.15 - 1.33 mmol/L [facility] Comment: Note: ??Total bilirubin higher than 20 mg/dL may lead to falsely low ionized calcium. CL Whole Blood 106 98 - 107 mmol/L [facility] Gluc Whole Bld 102 65 - 199 mg/dL [facility] Comment:Diabetes: >=200 mg/d L plus symptoms. Lactate WB 1.2 0.5 - 2.2 mmol/L [facility] FIO2 Art 95 % [facility] Flow Art 1.1 LPM [facility] PF Ratio Art [address] [facility] Temp Art 35.6 Celsius [facility] Blood specimen (specimen) 09/21/2016 8:18 AM EST 09/21/2016 8:18 AM EST Alirio Esparza MD POINT OF CARE TEST ORDERABLES Performing Organization Address [facility] Co de Phone Number [facility] [address] * Prepare RBC (09/21/2016 7:05 AM EST) Dispensed? Yes [facility] Blood specimen (specimen) 09/21/2016 7:05 AM EST 09/21/2016 7:02 AM EST Alirio Esparza MD BLOOD BANK PRODUCT ORDERABLES Performing Organization Address [facility] Co de Phone Number [facility] [address] * POCT Glucose (09/21/2016 6:42 AM EST) Glucose, POC 104 65 - 199 mg/dL [facility] Comment: Supplemental ranges: <140 mg/dL before meals <180 mg/dL all other times of the day Blood specimen (specimen) 09/21/2016 6:42 AM EST 09/21/2016 6:42 AM EST Alirio Esparza MD POINT OF CARE TEST ORDERABLES Performing Organization Address [facility] de Phone Number [facility] [place] [address] documented in this encounter Visit Diagnoses Not [...] dose on Wed09/21/16 at 1230, Until Discontinued, Moca teeth, Routine Given 09/25/2016 9:40 AM EST [...] on Wed09/23/16 at 0900, Last dose on Marquita 3/2/17 at 0900, Routine, Indication for (Active or [...] - Reason: Patient/family refused)0942 (Given - Provider: Joeslyn Caceres RN - Comment: not given at 0600)1600 (Due - Provider: Kendall Martínez [facility]) aspirin chewable tablet 81 mg(Linked Group [...] dose on Wed09/21/16 at 1230, Until Discontinued, Moca teeth, Routine 0900 (Not Given - Provider: [...] RN)1708 (Given - Provider: Federico Apple, VALDO) 08 (Given - Provider: Marek Barnes, VALDO)162 [...] 0941 (See Alternative - Provider: Joselyn Caceres, RN) pantoprazole (PROTONIX) tablet 40 mg(Linked Group [...] Routine documented in this encounter Care Teams Utility Operator Relationship Specialty Start Date End Date Deborah Quiroga APRN PCP - General Family Medicine 03/24/16 02/04/23 documented as of this encounter
--- OUTSIDE RECORDS SUMMARY | 2024-03-16 14:12 | XMS_ITS | Encounter Summary ---
Author Organization [facility] Address [facility] [place] [address] Care Team Providers Care Turning Lathe Tender Name Role Phone Deborah Quiroga APRN Primary Care Provider [phone] Encounter Details Date Type Department Care Team (Late st Contact Info) Description 06/16/2016 Orders Only Hematology [place] [address] Nitesh Pina Jr., MD [facility] [address] HEMATOLOGY [place] [address] Cyclical neutropenia Social History Tobacco Use Types [...] 4:15 PM EDT Office Visit Dermatology at [place] [address] [place] [id number] Marek Bonilla MD [address], [place] A DERMATOLOGY [place], [place] [id number] documented as of this encounter Visit Diagnoses Diagnosis Cyclical neutropenia Cyclic neutropenia documented in this encounter Care Teams Turning Lathe Tender Relationship Specialty Start Date End Date Deborah Quiroga APRN PCP - General Family Medicine 03/24/16 02/04/23 documented as of this encounter
--- OUTSIDE RECORDS SUMMARY | 2024-03-16 14:12 | XMS_ITS | Encounter Summary ---
Author Organization [facility] Address [facility] [place] [address] Care Team Providers Care Utility Mechanic Name Role Phone JunaidAshley hargrovezac Shields APRN Primary Care Provider [phone] Reason for Visit * Auth/Cert Specialty Diagnoses / Procedures Referred By Crispin t Referred To Contact Diagnoses AVS Procedures CARDIAC CATHETERIZATION Referral ID Status Reason Start Date Expiration Date Visits Re quested Visits Authorized [id number] 1 1 Encounter Details Date Type Department Care Team (Late st Contact Info) Description 06/03/2016 6:32 AM EDT - 06/03/2016 1:10 PM EDT Hospital Encounter [place] [phone] Anjum Oliveros II, MD [facility] [place] [address] Mario Alberto Escobedo MD [facility] [place] [address] Aortic valve stenosis, unspecified etiology; Nonrheumatic aortic [...] by your doctor, do not take any scbi-fxe-vwkyccu medicinesor herbal preparations without first discussing this with your doctor or pharmacist. There is the possibility of side effects and interactions when these are combined. Follow Up Care Who to call with questions or problems If there are any questions or problems that you think might be related to your cardiac cath or angioplasty, contact the superintendent oil well services hotel recreational facilities manager by calling [facility] at . * Patient Instructions* Felicia Corrigan - 06/03/2016 9:33 AM EDT Cardiology Instructions Call your doctor if: Chest pain, dyspnea, pain or swelling in legs occurs. If you have non-emergent questions between now and the time of your follow up appointments: -During 8am-5pm Wednesday through Wednesday call [phone] to speak with a nurse in the cardiology clinic -All other times call [phone] and ask to speak to the nursing resident hotel recreational facilities manager. MEDICATIONS - restart your spironolactone, discontinue prior [...] Appointments: Primary care provider: Cardiology: Deborah Hahn, ER NURSE [phone] Follow up as planned or as needed. Dr. Esparza [phone] Other follow-up appointment: Hematology - Dr. Mario [...] 4:15 PM EDT Office Visit Dermatology at [place] [address] [place] [address] Marek Bonilla MD [address] [facility] [place] DERMATOLOGY [place], [place] [id number] documented as of this encounter Procedures Procedure [...] Green Tube HOLD (06/03/2016 11:45 AM EDT) [facility] Green Hold Sample in lab. [facility] Blood specimen (specimen) Venous Draw / Unknown 06/03/2016 11:45 AM EDT 06/03/2016 12:12 PM EDT Mario Alberto Escobedo MD CHEMISTRY ORDERABLES Performing Organization Address [facility] Co de Phone Number [facility] [place] [address] * Methylmalonic acid, serum (06/03/2016 11:45 AM EDT) [facility] Methylmalonic Acid (NOVEMBER) 0.21 <=0.40 nmol/mL [facility] Comment: Test Performed by: [place] [address] Tripoler: Raymond Chaudhry II, M.D., Ph.D. Blood specimen (specimen) 06/03/2016 11:45 AM EDT 06/03/2016 1:57 PM EDT Narrative Resulting Agency Comment Spec In Lab Mario Alberto Escobedo MD LAB SEND OUT ORDERAB LES Performing Organization Address [facility] Co de Phone Number [facility] [place] [address] * Granulocyte Antibody (06/03/2016 11:45 AM EDT) [facility] Granulocyte Ab (NOVEMBER) Negative Not Applicable [facility] Comment: ADDITIONAL INFORMATION Method: Immunofluorescent Assay Performing Laboratory CLIA# [id number] This test was developed and its performance characteristics determined by [facility] in a manner consistent with CLIA requirements. This test has not been cleared or approved by the U.S. Food and Drug Administration. Test Performed by: [facility] - [address] [address] Tripoler: Raymond Chaudhry II, M.D., Ph.D. Blood specimen (specimen) 06/03/2016 11:45 AM EDT 06/03/2016 1:57 PM EDT Narrative Resulting Agency Comment Spec In Lab Mario Alberto Escobedo MD LAB SEND OUT ORDERAB LES Performing Organization Address [facility] Co de Phone Number [facility] [place] [address] * TSH (06/03/2016 11:45 AM EDT) Thyroid Stimulating Hormone 2.18 0.27 - 4.20 mcIU/mL [facility] Blood specimen (specimen) 06/03/2016 11:45 AM EDT 06/03/2016 12:11 PM EDT Narrative Resulting Agency Comment Spec In Lab Mario Alberto Escobedo MD CHEMISTRY ORDERABLES Performing Organization Address [facility] Co de Phone Number [facility] [place] [address] * Homocysteine Total, Plasma (06/03/2016 11:45 AM EDT) Homocystine 9 <=15 mcmol/L [facility] Blood specimen (specimen) 06/03/2016 11:45 AM EDT 06/03/2016 12:11 PM EDT Narrative Resulting Agency Comment Spec In Lab Mario Alberto Escobedo MD CHEMISTRY ORDERABLES Performing Organization Address [facility] Co de Phone Number [facility] [place] [address] * Folate, serum (06/03/2016 11:45 AM EDT) Folate >20.0 4.8 - 24.2 ng/mL [facility] Blood specimen (specimen) 06/03/2016 11:45 AM EDT 06/03/2016 12:04 PM EDT Narrative Resulting Agency Comment Spec In Lab Mario Alberto Escobedo MD CHEMISTRY ORDERABLES Performing Organization Address City/[facility] Co de Phone Number [facility] [place] [address] * (ABNORMAL) Sedimentation rate (06/03/2016 11:45 AM EDT) Pathologist [facility] Sedimentation Rate Automated 41(H) 0 - 20 mm/hr [facility] Blood specimen (specimen) 06/03/2016 11:45 AM EDT 06/03/2016 12:04 PM EDT Narrative Resulting Agency Comment Spec In Lab Mario Alberto Escobedo MD HEMATOLOGY ORDERABLE S Performing Organization Address [facility] Co de Phone Number [facility] [place] [address] * Lactate Dehydrogenase (06/03/2016 11:45 AM EDT) Lactate Dehydrogenase 164 110 - 220 unit/L [facility] Blood specimen (specimen) 06/03/2016 11:45 AM EDT 06/03/2016 12:11 PM EDT Narrative Resulting Agency Comment Spec In Lab Mario Alberto Escobedo MD CHEMISTRY ORDERABLES Performing Organization Address [facility] Co de Phone Number [facility] [place] [address] * Comprehensive metabolic panel (non-fasting) (06/03/2016 11:45 AM EDT) Glucose 90 65 - 199 mg/dL [facility] Comment:Diabetes: >=200 mg/d L plus symptoms Blood Urea Nitrogen 11 8 - 18 mg/dL [facility] Creatinine 0.83 0.70 - 1.20 mg/dL [facility] Comment: Please note that the pediatric reference intervals supplied above were not validated at [facility]. Results from pediatric patients should be interpreted [...] [facility] Carbon Dioxide 25 22 - 31 mmol/L [facility] Anion Gap 14 5 - 15 mmol/L [facility] Calcium 9.2 8.5 - 10.5 mg/dL [facility] Protein, Total 7.0 6.1 - 8.0 gm/dL [facility] Albumin 4.0 3.2 - 5.2 gm/dL [facility] Aspartate Aminotransferase 17 0 - 30 unit/L [facility] Alanine Aminotransferase 9 0 - 30 unit/L [facility] Alkaline Phosphatase 81 40 - 104 unit/L [facility] Bilirubin, Total 0.4 0.2 - 1.3 mg/dL [facility] Bilirubin, Direct 0.1 0.0 - 0.3 mg/dL [facility] Est [...] the following links into your internet browser. [email or web address] Blood specimen (specimen) 06/03/2016 11:45 AM EDT 06/03/2016 12:11 PM EDT Narrative Resulting Agency Comment Spec In Lab Mario Alberto Escobedo MD CHEMISTRY ORDERABLES [facility] [place] [address] documented in this encounter Visit Diagnoses Diagnosis [...] Hernandez) documented in this encounter Care Teams Utility Mechanic Relationship Specialty Start Date End Date Deborah Quiroga, ER NURSE PCP - General Family Medicine 03/24/16 02/04/23 documented as of this encounter
--- OUTSIDE RECORDS SUMMARY | 2024-03-16 14:12 | XMS_ITS | Encounter Summary ---
[place] [address] Care Team Providers Care Senior Marketing Engineer Name Role Phone Ashley Quirogan Cornelius ANURAG Primary Care Provider [phone] Encounter Details Date Type Department Care Team (Late st Contact Info) Description 07/03/2016 External Results Hematology [place] [address] Matthew Cervantes, DO [address] [place] [address] Social History Tobacco Use Types Packs/Day Years [...] 4:15 PM EDT Office Visit Dermatology at [place] [address] [place] [phone] Marek Bonilla MD [address] [facility] A DERMATOLOGY [place], [place] [phone] documented as of this encounter Procedures Procedure Name Priority Date/Time Associated Diagnosis Comments BONE MARROW ASPIRATION PERFO RMED WITH BONE MARRROW BIOPSY Routine 06/28/2016 documented in this encounter Results * BONE MARROW ASPIRATION PREFORMED WITH BONE MARRROW BIOPSY (06/28/2016) Matthew Cervantes DO GENERAL SURGI DANIEL ORDERABLES documented in this encounter Visit Diagnoses Not on filedocumented in this encounter Care Teams Senior Marketing Engineer Relationship Specialty Start Date End Date Deborah Quiroga, WIC SITE COORDINATOR PCP - General Family Medicine 03/24/16 02/04/23 documented as of this encounter
--- OUTSIDE RECORDS SUMMARY | 2024-03-16 14:12 | XMS_ITS | Encounter Summary ---
Author Organization [facility]ly [facility] Address [facility] [place] [address] Care Team Providers Care Supervisor Graphite Name Role Phone Ashley Quirogazac Shields APRN Primary Care Provider [phone] Encounter Details Date Type Department Care Team (Latest Contact Info) Description 06/19/2016 - 06/19/2016 11:59 PM EST Hospital Encounter [place] [address] Nitesh Pina Jr., MD [facility] [address] HEMATOLOGY [place] [address] Pain Discharge Disposition: Home Social History Tobacco [...] 4:15 PM EDT Office Visit Dermatology at [place] [address] [place] [address] Marek Bonilla MD [address] [place] [address] documented as of this encounter Procedures Procedure Name Priority Date/Time Associated Diagnosis Comments FILM LIBRARY STORAGE ONLY CT CHEST ABDOMEN PELVIS Routine 06/19/2016 12:00 AM EST Pain documented in this encounter Results * Film Library- Storage Only CT Chest Abdomen Pelvis (06/19/2016 12:00 AM EST) Narrative [facility] - 06/20/2016 8:53 AM EST This exam is for storage only and is auto-finalizing. Nitesh Pina Jr., MD IMG FILM LIBRARY ORD ERABLES [place], [place] documented in this encounter Visit Diagnoses Diagnosis Pain Generalized pain documented in this encounter Care Teams Supervisor Graphite Relationship Specialty Start Date End Date Deborah Quiroga APRN PCP - General Family Medicine 03/24/16 02/04/23 documented as of this encounter
--- OUTSIDE RECORDS SUMMARY | 2024-03-16 14:12 | XMS_ITS | Encounter Summary ---
Author Organization [facility] Address [facility] [place] [place] [address] Care Team Providers Care Senior Naval Parachutist Name Role Phone Junaid Deborah Shields APRN Primary Care Provider [phone] Encounter Details Date Type Department Care Team (Latest Contact Info) Description 08/18/2016 4:40 PM EST Laboratory [place] [phone] Aortic valve stenosis, unspecified etiology Social History [...] 4:15 PM EDT Office Visit Dermatology at [facility] [address] [facility] [place] [address] Marek Bonilla MD [address] [facility], [place] [address] documented as of this encounter Procedures Procedure Name Priority Date/Time Associated Diagnosis Comments ABORH RECHECK STATUS Routine 08/18/2016 4:50 PM EST TYPE AND SCREEN, SDP (FUTURE SURGERY, [facility] SAME DAY PROGRAM ONLY) Routine 08/18/2016 4:50 [...] 4:50 PM EST) ABORH Type Recheck Completed [facility] Blood specimen (specimen) 08/18/2016 4:50 PM EST 08/18/2016 5:27 PM EST Narrative Resulting Agency Comment Spec In Lab Alirio Esparza MD BLOOD BANK LAB BETH SHANNONROMERO [facility] [place] [address] * Antibody screen (08/18/2016 4:50 PM EST) Ab Screen Interp Negative [facility] Expires at [id number] on: 09/24/2016 [facility] Comment: Corrected from 09/17/16 12:00 [Unknown] on 09/09/16 02:32 by Shireen Treviño Blood specimen (specimen) 08/18/2016 4:50 PM EST 08/18/2016 5:11 PM EST Narrative Resulting Agency Comment Spec In Lab Alirio Esparza MD BLOOD BANK LAB ORDSylvia ORTEGAROMERO [facility] [place] [address] * ABO/Rh Typing (08/18/2016 4:50 PM EST) ABORH Type B Pos [facility] Blood specimen (specimen) 08/18/2016 4:50 PM EST 08/18/2016 5:11 PM EST Narrative Resulting Agency Comment Spec In Lab Alirio Esparza MD BLOOD BANK LAB BETH ALEJO Lidia Organization Address City/State/ZIP Co de Phone Number [facility] [place] [address] * Basic Metabolic Panel (non-fasting) (08/18/2016 4:50 PM EST) Glucose 82 65 - 199 mg/dL [facility] Comment:Diabetes: >=200 mg/d L plus symptoms Blood Urea Nitrogen 12 8 - 18 mg/dL [facility] Creatinine 0.87 0.70 - 1.20 mg/dL [facility] Comment: Please note that the pediatric reference intervals supplied above were not validated at [facility]. Results from pediatric patients should be interpreted in conjunction to the patient's age, height and muscle mass. Sodium 142 135 - 145 mmol/L ST. [...] the following links into your internet browser. [email or web address] Blood specimen (specimen) 08/18/2016 4:50 PM EST 08/18/2016 5:03 PM EST Narrative Resulting Agency Comment Spec In Lab Alirio Esparza MD CHEMISTRY ORDERABLE S Performing Organization Address City/State/[facility] Co de Phone Number [facility] [place] [address] documented in this encounter Visit Diagnoses Diagnosis Aortic valve stenosis, unspecified etiology documented in this encounter Care Teams Senior Naval Parachutist Relationship Specialty Start Date End Date Deborah Quiroga, DISTILLER PCP - General Family Medicine 03/24/16 02/04/23 documented as of this encounter
--- OUTSIDE RECORDS SUMMARY | 2024-03-16 14:12 | XMS_ITS | Encounter Summary ---
Author Organization [facility] [place] [address] Care Team Providers Care Behavioral Services Tech Name Role Phone Deborah Quiroga APRN Primary Care Provider [phone] Encounter Details Date Type Department Care Team (Late st Contact Info) Description 06/09/2016 Orders Only [place] [address] Nitesh Pina Jr., MD [facility] [address] [place]EMATOLOGY [place] [address] Cyclical neutropenia Social History Tobacco Use Types [...] Office Visit Dermatology at [place] [address] [facility] [place] [address] Marek Bonilla MD [address] [facility], [place] [address] documented as of this encounter Results * Immunophenotyping Flow Cytometry (06/09/2016 4:53 PM EST) Immunophenotyping Flow See Comment [facility] Comment: When completed by the Pathologist, the Flow Cytometry Report ([id number]) will display under the Pathology Results section within [facility]. Specimen of unknown material (specimen) 06/09/2016 4:53 PM EST 06/09/2016 5:00 PM EST Narrative Resulting Agency Comment Spec In Lab Nitesh Pina Jr., MD HEMATOLOGY ORDERABLE S Performing Organization Address City/State/[facility] Co de Phone Number [facility] [place] [address] documented in this encounter Visit Diagnoses Diagnosis Cyclical neutropenia Cyclic neutropenia documented in this encounter Care Teams Behavioral Services Tech Relationship Specialty Start Date End Date Deborah Quiroga, HELPDESK TECHNICIAN PCP - General Family Medicine 03/24/16 02/04/23 documented as of this encounter
--- OUTSIDE RECORDS SUMMARY | 2024-03-16 14:12 | XMS_ITS | Encounter Summary ---
[place] [address] Care Team Providers Care Software Quality Manager Name Role Phone Deborah Quiroga ANURAG Primary Care Provider [phone] Reason for Visit * Reason Onset Date Comments Pre Procedure Call 06/18/2016 Encounter Details Date Type Department Care Team (Late st Contact Info) Description 06/18/2016 Telephone [place] [address] Alexandrea Greenwood RN Pre Procedure Call Social [...] 4:15 PM EDT Office Visit Dermatology at [place] [address] [facility] [place] [address] Marek Bonilla MD [address], [place] [address] documented as of this encounter Visit Diagnoses Not on filedocumented in this encounter Care Teams Software Quality Manager Relationship Specialty Start Date End Date Deborah Quiroga APRN PCP - General Family Medicine 03/24/16 02/04/23 documented as of this encounter
--- OUTSIDE RECORDS SUMMARY | 2024-03-16 14:13 | XMS_ITS | Encounter Summary ---
[place] [address] Care Team Providers Care Cook Mayonnaise Name Role Phone Ashley Quirogan Cornelius ANURAG Primary Care Provider [phone] Encounter Details Date Type Department Care Team (Late st Contact Info) Description 03/24/2016 Notes [place] [phone] Alfa Lua Social History Tobacco Use Types [...] assessments completed: Wadsworth Score: 6/6 IADL: 7/7 Help Aid Strength Trials: 18.4, 15.0, 16.8 (right hand dominant) 5 meter walk test in seconds x3: 4.98, 4.88, 4.45 KCCQol: 98% Alfa Lua documented in this encounter Plan of Treatment Upcoming Encounters Date Type Department Care Team (Late st Contact Info) Description 03/01/2025 4:15 PM EDT Office Visit Dermatology at [place] [address] [facility] [place] [address] Maerk Bonilla MD [address] [facility] [address] [place] [address] documented as of this encounter Visit Diagnoses Not on filedocumented in this encounter Care Teams Cook Mayonnaise Relationship Specialty Start Date End Date Deborah Quiroga APRN PCP - General Family Medicine 03/24/16 02/04/23 documented as of this encounter
--- OUTSIDE RECORDS SUMMARY | 2024-03-16 14:13 | XMS_ITS | Encounter Summary ---
Author Organization [facility] [place] [address] Care Team Providers Care Harvest Manager Name Role Phone Eitan Danni ANURAG Primary Care Provider [phone] Encounter Details Date Type Department Care Team (Late st Contact Info) Description 01/23/2014 9:25 AM EDT - 01/23/2014 10:25 AM [place] [address] Alan Jacobson MD [facility] [address] CARDIAC CATHETERIZATION Social History Tobacco Use Types [...] by your doctor, do not take any gkju-ify-bhcqfpv medicines or herbal preparations without first discussing this with your doctor or pharmacist. There is the possibility of side effect and interactions when these are combined. Follow up Care Who to Call with Questions or Problems If there are any questions or problems that you think might be related to your cardiac cath or angioplasty, contact the shipping and receiving operator diamond die polisher by calling [facility] at . documented in this [...] 4:15 PM EDT Office Visit Dermatology at [place] [address] [facility] [place] [address] Marek Bonilla MD [address], [place] [address] documented as of this encounter Procedures Procedure Name Priority Date/Time Associated Diagnosis Comments ECHOCARDIOGRAM TRANSTHORACIC Routine 01/23/2014 3:17 PM EDT SOB (shortness of breath) documented in this encounter Results * Echocardiogram Transthoracic(Leb) (01/23/2014 3:17 PM EDT) Pathologist [employer] EF 50 HEARTMaimaibao SYSTEM Anatomical Region Laterality Modality Other 01/23/2014 Narrative 01/23/2014 4:35 PM EDT Procedure: ? Transthoracic Echocardiogram Patient: ? ANDREW ECHOLS M ?(Age): 1955(58) Med Rec#: ?[id number] ? Sex: ?F ? Site Loc: ?[facility] ? Ht / Wt: ??158(cm)/93(kg) Pt. Loc: ? Adult Floor ?BSA: ?2.02 Study Date: ?01/23/2014 ? Pt. Type: Inpatient Tape: ? Referring: Lee Kincaid ([id number]) Referring: ANNALISA Breeder Service Technician: Miguel Beverly Diagnosis:CPT Code(s): ??Echo Full (84919), ??Spectral Doppler (21933), Color Doppler (20024), Indication(s): ??Aortic stenosis Rhythm: Sinus HR ?BP [...] ? Mid-Inferior ?Hypokinetic ? Mid-Inferoseptal ?Hypokinetic ? Crawford-Septal ? Hypokinetic ? Crawford-Anterior ? Hypokinetic ? Crawford-Lateral ?Hypokinetic ? Crawford-Inferior ? Hypokinetic ? Crawford-Tip ?Hypokinetic ? Chambers ?Value ?Units (Range) ? [...] 01/23/2014 16:34:37 Images reviewed and interpretation verified [facility] Cardiac Ultrasound Laboratory Procedure Note Lee Kincaid MD - 01/23/2014 Procedure: Transthoracic Echocardiogram Patient: ANDREW Mejias (Age): 1955(58) Med Rec#: [id number] Sex: F Site Loc: [facility] Ht / Wt: 158(cm)/93(kg) Pt. Loc: Adult Floor BSA: 2.02 Study Date: 01/23/2014 Pt. Type: Inpatient Tape: Referring: Lee Kincaid ([id number]) Ref[facility]: [facility] Breeder Service Technician: Miguel Beverly Diagnosis:CPT Code(s): Echo Full (89345), Spectral Doppler (11428), Color Doppler (01048), Indication(s): Aortic stenosis Rhythm: Sinus HR BP [...] Hypokinetic Mid-Posterolateral Hypokinetic Mid-Inferior Hypokinetic Mid-Inferoseptal Hypokinetic Crawford-Septal Hypokinetic Crawford-Anterior Hypokinetic Crawford-Lateral Hypokinetic Crawford-Inferior Hypokinetic Crawford-Tip Hypokinetic Chambers Value Units (Range) IVSd 2D [...] 01/23/2014 16:34:37 Images reviewed and interpretation verified [facility] Cardiac Ultrasound Laboratory Lee Kincaid [...] RN) documented in this encounter Care Teams Harvest Manager Relationship Specialty Start Date End Date Danni Laird APRN [address] [place] [address] PCP - General 01/23/14 11/11/14 documented as of this encounter
--- OUTSIDE RECORDS SUMMARY | 2024-03-16 14:13 | XMS_ITS | Encounter Summary ---
[place] [address] Care Team Providers Care Mixed Crop And Livestock Farm Worker Name Role Phone Mitchell Wilkes MD Primary Care Provider [phone] Reason for Visit * Reason Onset Date Comments Other 01/18/2014 Encounter Details Date Type Department Care Team (Late st Contact Info) Description 01/18/2014 Telephone Cardiology at [address] [address] Jesusita Garces Other Social History [...] PM EDT Office Visit Dermatology at [address] [address] Marek Bonilla MD [address] [place] [address] RD, [place] [address] documented as of this encounter Visit Diagnoses Not on filedocumented in this encounter Care Teams Mixed Crop And Livestock Farm Worker Relationship Specialty Start Date End Date Mitchell Wilkes MD [facility] PCP - General 06/24/10 01/19/14 documented as of this encounter
--- OUTSIDE RECORDS SUMMARY | 2024-03-16 14:13 | XMS_ITS | Encounter Summary ---
Author Organization [facility] Address [facility] [place] [address] Care Team Providers Care Scientific Publications Editor Name Role Phone JunaidAshley hargrovezac Shields APRN Primary Care Provider [phone] Reason for Visit * Consultation (Urgent) - Closed Specialty Diagnoses / Procedures Referred By Contac t Referred To Contact Cardiac Surgery Diagnoses aortic stenosis, consideration for valve replacement Antelmo Burrell MD [address] [place] [address] Alirio Esparza MD [facility] [place] [address] Referral ID Status Reason Start Date Expiration Date V isits Requested Visits Authorized [id number] Closed Connection Center 03/04/2016 03/04/2017 1 1 Encounter Details Date Type Department Care Team (Late st Contact Info) Description 03/24/2016 10:40 AM EDT Office [place] [phone] Alirio Esparza MD Aortic valve stenosis, unspecified [...] This is a patient of Antelmo Burrell [facility] Cardiology. Mrs. Thacker is being [...] 30 minute visit, 20 minutes were spent eiku-eu-yvfu with the patient discussing aortic stenosis and valve replacement. documented in this encounter Plan of Treatment Upcoming Encounters Date Type Department Care Team (Late st Contact Info) Description 03/01/2025 4:15 PM EDT Office Visit Dermatology at [place] [address] [place] [address] Marek Bonilla MD [address], [place] [address] documented as of this encounter Visit Diagnoses Diagnosis Aortic valve stenosis, unspecified etiology documented in this encounter Care Teams Scientific Publications Editor Relationship Specialty Start Date End Date Deborah Quiroga APRN PCP - General Family Medicine 03/24/16 02/04/23 documented as of this encounter
--- OUTSIDE RECORDS SUMMARY | 2024-03-16 14:13 | XMS_ITS | Encounter Summary ---
Author Organization [facility] Address [facility] [place] [address] Care Team Providers Care Crackling Press Operator Name Role Phone Danni Laird APRN Primary Care Provider [phone] Encounter Details Date Type Department Care Team (Late st Contact Info) Description 01/23/2014 Orders Only Cardiology at [address] [address] Lee Kincaid MD [facility] [place] [address] SOB (shortness of breath) (Primary Dx) Social [...] 4:15 PM EDT Office Visit Dermatology at [place] [address] [facility] [place] [address] Marek Bonilla MD [address] [facility], TODD A DERMATOLOGY [place], [place] [address] documented as of this encounter Results * Echocardiogram Transthoracic(Leb) (01/23/2014 3:17 PM EDT) EF 50 HEARTLAB SYSTEM Anatomical Region Laterality Modality Other 01/23/2014 Narrative 01/23/2014 4:35 PM EDT Procedure: ? Transthoracic Echocardiogram Patient: ? ANDREW Mejias ?(Age): 1955(58) Med Rec#: ?[id number] ? Sex: ?F ? Site Loc: ?[facility] ? Ht / Wt: ??158(cm)/93(kg) Pt. Loc: ? Adult Floor ?BSA: ?2.02 Study Date: ?01/23/2014 ? Pt. Type: Inpatient Tape: ? Referring: Lee Kincaid ([id number]) Referring: ANNALISA Party Plan Sales Host/Hostess: Miguel Beverly Diagnosis:CPT Code(s): ??Echo Full (34908), ??Spectral Doppler (12529), Color Doppler (26063), Indication(s): ??Aortic stenosis Rhythm: Sinus HR ?BP [...] ? Mid-Inferior ?Hypokinetic ? Mid-Inferoseptal ?Hypokinetic ? [place]t-Septal ? Hypokinetic ? [place]-Anterior ? Hypokinetic ? [place]-Lateral ?Hypokinetic ? [place]t-Inferior ? Hypokinetic ? [place]t-Tip ?Hypokinetic ? Chambers ?Value ?Units (Range) ? [...] 16:34:37 Images reviewed and interpretation verified [facility] Cardiac Ultrasound Laboratory Procedure Note Lee Kincaid MD - 01/23/2014 Procedure: Transthoracic Echocardiogram Patient: ANDREW Mejias (Age): 1955(58) Med Rec#: [id number] Sex: F Site Loc: [facility] Ht / Wt: 158(cm)/93(kg) Pt. Loc: Adult Floor BSA: 2.02 Study Date: 01/23/2014 Pt. Type: Inpatient Tape: Referring: Lee Kincaid ([id number]) Referring: ANNALISA Party Plan Sales Host/Hostess: Miguel Beverly Diagnosis:CPT Code(s): Echo Full (63479), Spectral Doppler (32448), Color Doppler (61423), Indication(s): Aortic stenosis Rhythm: Sinus HR BP [...] Hypokinetic Mid-Posterolateral Hypokinetic Mid-Inferior Hypokinetic Mid-Inferoseptal Hypokinetic Ghent-Septal Hypokinetic [place]t-Anterior Hypokinetic [place]t-Lateral Hypokinetic [place]t-Inferior Hypokinetic [place]-Tip Hypokinetic Chambers Value Units (Range) IVSd 2D [...] 16:34:37 Images reviewed and interpretation verified [facility] Cardiac Ultrasound Laboratory Lee Kincaid MD ECHO ORDERABLES documented in this encounter Visit Diagnoses Diagnosis SOB (shortness of breath)- Primary Shortness of breath documented in this encounter Care Teams Crackling Press Operator Relationship Specialty Start Date End Date Danni Laird APRN [address] [place] [address] PCP - General 01/23/14 11/11/14 documented as of this encounter
--- OUTSIDE RECORDS SUMMARY | 2024-03-16 14:13 | XMS_ITS | Encounter Summary ---
Author Organization [facility] [place] [address] Care Team Providers Care Private Duty Lpn Name Role Phone EitanDanni ANURAG Primary Care Provider [phone] Encounter Details Date Type Department Care Team (Late st Contact Info) Description 01/22/2014 Telephone Cardiology at [address] [phone] Cynthia Arrington LPN Social History Tobacco Use [...] LPN - 01/23/2014 2:39 PM EDT This engineering technical writer did not receive a call [...] EDT Office Visit Dermatology at [place] [address] [facility] [address] Marek Bonilla MD [address], [place] [address] documented as of this encounter Visit Diagnoses Not on filedocumented in this encounter Care Teams Private Duty Lpn Relationship Specialty Start Date End Date Danni Laird APRN [address] [place] [address] PCP - General 01/23/14 11/11/14 documented as of this encounter
--- OUTSIDE RECORDS SUMMARY | 2024-03-16 14:13 | XMS_ITS | Encounter Summary ---
Author Organization [facility] Address [facility] [place] [address] Care Team Providers Care Aluminum Hydroxide Process Operator Name Role Phone Mitchell Wilkes MD Primary Care Provider [phone] Encounter Details Date Type Department Care Team (Late st Contact Info) Description 01/19/2014 Orders Only Cardiology at [address] [address] Chele Randolph, [place] [facility] [place] [address] Cardiomyopathy (Primary Dx) Social History Tobacco Use [...] 4:15 PM EDT Office Visit Dermatology at [place] [address] [facility] [place] [address] Marek Bonilla MD [address], [place] [address] documented as of this encounter Procedures Procedure [...] cardiomyopathies documented in this encounter Care Teams Aluminum Hydroxide Process Operator Relationship Specialty Start Date End Date Mitchell Wilkes MD [facility] PCP - General 06/24/10 01/19/14 documented as of this encounter
--- OUTSIDE RECORDS SUMMARY | 2024-03-16 14:13 | XMS_ITS | Encounter Summary ---
[place] [address] Care Team Providers Care Supervisor Housecleaner Name Role Phone Jerel Sofia Garcia APRN Primary Care Provider [phone] Encounter Details Date Type Department Care Team (Late st Contact Info) Description 11/12/2014 8:10 AM EDT - 11/12/2014 11:59 PM EDT Hospital [place] [address] CLINIC, DR ABE Burrell, Antelmo Porter MD [address] [place] [address] Discharge Disposition: Home Social History Tobacco Use [...] 4:15 PM EDT Office Visit Dermatology at [place] [address] [place] [address] Marek Bonilla MD [address] [facility] [address], [place] [address] documented as of this encounter Procedures Procedure [...] mLs documented in this encounter Care Teams Supervisor Housecleaner Relationship Specialty Start Date End Date Sofia Beltrán APRN [address] [place] [address] PCP - General 11/12/14 03/23/16 documented as of this encounter
--- OUTSIDE RECORDS SUMMARY | 2024-03-16 14:13 | XMS_ITS | Encounter Summary ---
Author Organization [facility] Address [facility] [place] [address] Care Team Providers Care Crime Analyst Name Role Phone EitanMagnusDanni ANURAG Primary Care Provider Encounter Details Date Type Department Care Team (Latest Contact Info) Description 01/23/2014 7:45 AM EDT - 01/23/2014 5:50 PM EDT Hospital Encounter [place] [address] Alan Jacobson MD [facility] [place] [address] Cardiomyopathy; SOB (shortness of breath) Discharge Disposition: [...] by your doctor, do not take any [id number]-shzbtqd medicines or herbal preparations without first discussing this with your doctor or pharmacist. There is the possibility of side effect and interactions when these are combined. Follow up Care Who to Call with Questions or Problems If there are any questions or problems that you think might be related to your cardiac cath or angioplasty, contact the bin packer fashion show director by calling [facility] at . documented in [...] 4:15 PM EDT Office Visit Dermatology at [place] [address] [place] [address] Marek Bonilla MD [address], [address] [place] [address] documented as of this encounter Procedures Procedure [...] ANDREW ECHOLS M ?(Age): 1955(58) Med Rec#: ?[id number] ? Sex: ?F ? Site Loc: ?[facility] ? Ht / Wt: ??158(cm)/93(kg) Pt. Loc: ? Adult Floor ?BSA: ?2.02 Study Date: ?01/23/2014 ? Pt. Type: Inpatient Tape: ? Referring: Lee Kincaid ([id number]) Referring: ANNALISA Legal Operations Manager: Miguel Beverly Diagnosis:CPT Code(s): ??Echo Full (25523), ??Spectral Doppler (51298), Color Doppler (01891), Indication(s): ??Aortic stenosis Rhythm: Sinus HR ?BP [...] ? Mid-Inferior ?Hypokinetic ? Mid-Inferoseptal ?Hypokinetic ? [place]-Septal ? Hypokinetic ? [place]-Anterior ? Hypokinetic ? [place]-Lateral ?Hypokinetic ? [place]-Inferior ? Hypokinetic ? [place]-Tip ?Hypokinetic ? Chambers ?Value ?Units (Range) ? [...] 01/23/2014 16:34:37 Images reviewed and interpretation verified [facility] Cardiac Ultrasound Laboratory Procedure Note Lee Kincaid MD - 01/23/2014 Procedure: Transthoracic Echocardiogram Patient: ANDREW Mejias (Age): 1955(58) Med Rec#: [id number] Sex: F Site Loc: [facility] Ht / Wt: 158(cm)/93(kg) Pt. Loc: Adult Floor BSA: 2.02 Study Date: 01/23/2014 Pt. Type: Inpatient Tape: Referring: Lee Kincaid ([id number]) Referring: ANNALISA Legal Operations Manager: Miguel Beverly Diagnosis:CPT Code(s): Echo Full (24452), Spectral Doppler (00393), Color Doppler (69187), Indication(s): Aortic stenosis Rhythm: Sinus HR BP [...] Hypokinetic Mid-Posterolateral Hypokinetic Mid-Inferior Hypokinetic Mid-Inferoseptal Hypokinetic [place]-Septal Hypokinetic [place]-Anterior Hypokinetic [place]-Lateral Hypokinetic [place]-Inferior Hypokinetic [place]-Tip Hypokinetic Chambers Value Units (Range) IVSd 2D [...] 01/23/2014 16:34:37 Images reviewed and interpretation verified [facility] Cardiac Ultrasound Laboratory Lee [...] RN) documented in this encounter Care Teams Crime Analyst Relationship Specialty Start Date End Date Danni Laird APRN [address] [place] [address] PCP - General 01/23/14 11/11/14 documented as of this encounter
--- OUTSIDE RECORDS SUMMARY | 2024-03-16 14:13 | XMS_ITS | Encounter Summary ---
Author Organization [facility] [place] [address] Care Team Providers Care Retail Maintenance Technician Name Role Phone Junaid, Deborah Shields APRN Primary Care Provider [phone] Encounter Details Date Type Department Care Team (Late st Contact Info) Description 05/19/2016 10:00 AM EDT Office [place] [phone] Alirio Esparza MD Nonrheumatic aortic valve stenosis Social History Tobacco [...] Office Visit Dermatology at [place] [address] [place] [phone] Marek Bonilla MD [address] [place] [address] documented as of this encounter Results * [...] (Bezet) 448 ms MUSE SYSTEM Calculated P [place] 37 degrees MUSE SYSTEM Calculated R [place] 31 degrees MUSE SYSTEM Calculated T [place] 25 degrees MUSE SYSTEM INTERPRETATION Normal sinus rhythm Normal ECG No previous ECGs available Confirmed by MD Becca, Deangelo ([id number]) on 05/19/2016 5:23:33 PM MUSE SYSTEM 05/19/2016 11:4 3 AM EDT 05/19/2016 5:23 PM EDT Alirio Esparza MD ECG ORDERABLES MUSE SYSTEM * Basic Metabolic Panel (non-fasting) (05/19/2016 11:32 AM EDT) Pathologist [facility] [place] Glucose 86 65 - 199 mg/dL [facility] Comment:Diabetes: >=200 mg/d L plus symptoms Blood Urea Nitrogen 13 8 - 18 mg/dL [facility] Creatinine 0.95 0.70 - 1.20 mg/dL [facility] Comment: Please note that the pediatric reference intervals supplied above were not validated at [facility]. Results from pediatric patients should be interpreted in conjunction to the patient's age, height and muscle mass. Sodium 140 135 - 145 mmol/L [facility] Potassium 4.3 3.5 - 5.0 mmol/L [facility] Comment: Please note: ??Patients with WBC >100,000 may have falsely elevated Potassium levels. ??For accurate Potassium quantification in these patients send serum separator tube (gold top) for subsequent determinations. ??Contact the Clinical Chemistry Laboratory if there are any questions. Chloride 101 98 - 107 mmol/L [facility] Carbon Dioxide 27 22 - 31 mmol/L [facility] Anion Gap 12 5 - 15 mmol/L [facility] Calcium 10.1 8.5 - 10.5 mg/dL [facility] Est Glomerular Filtration Rate 60 >=60 [facility] Comment: This [...] the following links into your internet browser. [email or web address] Blood specimen (specimen) 05/19/2016 11:32 AM EDT 05/19/2016 11:41 AM EDT Narrative Resulting Agency Comment Spec In Lab Alirio Esparza MD CHEMISTRY ORDERABLE S Performing Organization Address City/State/[facility] Co de Phone Number [facility] [place] [address] documented in this encounter Visit Diagnoses Diagnosis Nonrheumatic aortic valve stenosis Aortic valve disorders Nonrheumatic aortic valve stenosis Aortic valve disorders documented in this encounter Care Teams Retail Maintenance Technician Relationship Specialty Start Date End Date Deborah Quiroga APRN PCP - General Family Medicine 03/24/16 02/04/23 documented as of this encounter
--- OUTSIDE RECORDS SUMMARY | 2024-03-16 14:13 | XMS_ITS | Encounter Summary ---
Author Organization [facility] Address [facility] [place] [address] Care Team Providers Care Pathology Laboratory Technologist Name Role Phone Junaid Deborah Shields APRN Primary Care Provider [phone] Encounter Details Date Type Department Care Team (Latest Contact Info) Description 05/19/2016 11:00 AM EDT Clinical [place] [phone] Nonrheumatic aortic valve stenosis Social History Tobacco [...] PM EDT Office Visit Dermatology at [place] [address] [place] [address] Marek Bonilla MD [address] [place] [address] documented as of this encounter Procedures Procedure [...] (Bezet) 448 ms MUSE SYSTEM Calculated P [place] 37 degrees MUSE SYSTEM Calculated R [place] 31 degrees MUSE SYSTEM Calculated T [place] 25 degrees MUSE SYSTEM INTERPRETATION Normal sinus rhythm Normal ECG No previous ECGs available Confirmed by MD Becca, Deangelo ([id number]) on 05/19/2016 5:23:33 PM MUSE SYSTEM 05/19/2016 11:4 3 AM EDT 05/19/2016 5:23 PM EDT Alirio Esparza MD ECG ORDERABLES MUSE SYSTEM documented in this encounter Visit Diagnoses Diagnosis Nonrheumatic aortic valve stenosis Aortic valve disorders documented in this encounter Care Teams Pathology Laboratory Technologist Relationship Specialty Start Date End Date Deborah Quiroga APRN PCP - General Family Medicine 03/24/16 02/04/23 documented as of this encounter
--- OUTSIDE RECORDS SUMMARY | 2024-03-23 13:58 | XMS_ITS | Encounter Summary ---
Author Organization [facility] Address [address] [place] [address] Care Team Providers Care Feeder Operator Automatic Name Role Phone Ashley Chavez Primary Care Provider [phone] Encounter Details Date Type Department Care Team (Late st Contact Info) Description 03/21/2024 Lab Requisition [place] Pathology & Laboratory Medicine - [address] [id number] Outr Resulting Lab, Provider Social History Tobacco [...] Procedure Name Priority Date/Time Associated Diagnosis Comments HAPTOGLOBIN Routine 03/21/2024 13:00 EDT documented in this encounter Results * HAPTOGLOBIN (03/21/2024 13:00 EDT) Haptoglobin 183 32 - 197 mg/dL 03/22/2024 10:25 EDT [facility] Blood VENOUS BLOOD / Unknown 03/21/2024 13:00 EDT 03/21/2024 21:50 EDT Provider Outr Resulting Lab CHEMISTRY & BLOOD GAS ORDERABLES [facility] [address] [place] [address] documented in this encounter Visit Diagnoses Not on filedocumented in this encounter Care Teams Feeder Operator Automatic Relationship Specialty Start Date End Date Ashley Chavez ARNP [address] [place] [address] PCP - General 07/11/10 documented as of this encounter
--- OUTSIDE RECORDS SUMMARY | 2024-03-23 13:58 | XMS_ITS | Encounter Summary ---
Author Organization [facility] Address [address] [place] [address] Care Team Providers Care Steel Post Installer Name Role Phone Ashley Chavez Primary Care Provider [phone] Encounter Details Date Type Department Care Team (Late st Contact Info) Description 03/22/2024 Lab Requisition [facility] Pathology & Laboratory Medicine - [address] [address] Consuelo Guerrero, DO [address] [place], [place] [address] Diaphragmatic hernia without obstruction or gangrene; Anemia, unspecified Social History Tobacco Use Types Packs/Day Years Used Date Smoking Tobacco: Never Assessed Interpersonal Safety Answer Date Record ed Physically Hurt Never 03/03/2020 Verbally Threaten Not on file 03/03/2020 Sex and Gender Information Value Date Recorded Sex Assigned at Not on file Gender Identity Not on file Sexual Orientation Not on file documented as of this encounter Plan of Treatment Pending Results Name Type Priority Associated Diagnoses Date /Time SURGICAL PATHOLOGY Pathology Today Diaphragmatic hernia without obstruction or gangrene Anemia, unspecified 03/21/2024 11:35 EDT documented as of this encounter Visit Diagnoses Diagnosis Diaphragmatic hernia without obstruction or gangrene Diaphragmatic hernia without mention of obstruction or gangrene Anemia, unspecified documented in this encounter Care Teams Steel Post Installer Relationship Specialty Start Date End Date Ashley Chavez ARNP [address] [place] [address] PCP - General 07/11/10 documented as of this encounter
--- OUTSIDE RECORDS SUMMARY | 2024-03-23 13:58 | XMS_ITS | Encounter Summary ---
Author Organization [facility] Address [address] [place] [address] Care Team Providers Care Shafting Cleaner Name Role Phone Ashley Chavez Primary Care Provider [phone] Encounter Details Date Type Department Care Team (Late st Contact Info) Description 04/29/[address] [facility] Pathology & Laboratory Medicine - [address] [address] Outr Resulting Lab, Provider Social History Tobacco [...] Antibody 1.6 <20.0 Units 04/30/2022 12:23 EDT [facility] Comment: ? Negative: [...] A ND SEROLOGY ORDERABLES Performing Organization Address [facility] de Phone Number [facility] [address] [place] [address] * SSA ANTIBODIES BY DOMO (04/29/2022 7:51 EDT) SSA Antibody 1.5 <20.0 Units 04/30/2022 12:22 EDT [facility] Comment: ? Negative: [...] A ND SEROLOGY ORDERABLES Performing Organization Address [facility] de Phone Number [facility] [address] [place] [address] documented in this encounter Visit Diagnoses Not on filedocumented in this encounter Care Teams Shafting Cleaner Relationship Specialty Start Date End Date Ashley Chavez ARNP [address] [place] [address] PCP - General 07/11/10 documented as of this encounter
--- OUTSIDE RECORDS SUMMARY | 2024-03-23 13:58 | XMS_ITS | Clinical Summary ---
Author Organization [facility] Address [address] [place] [address] Care Team Providers Care Auto Fleet Manager Name Role Phone Ashley Chavez Primary Care Provider [phone] Encounters Date Type Department Care Team Description 03/22/2024 Lab Requisition [facility] Pathology & Laboratory [address] [address] Consuelo Guerrero, DO Diaphragmatic hernia without obstruction or gangrene; Anemia, unspecified 03/21/2024 Lab Requisition [facility] Pathology & Laboratory [address] [address] Consuelo Guerrero, DO Encounter for other general examination 03/21/2024 Lab Requisition [facility] Pathology & Laboratory [address] [address] Outr Resulting Lab, Provider from Last 3 Months Social History Tobacco Use Types Packs/Day Years [...] Screening 2020 COVID-19 Vaccine (2022-24 season) 2023 Procedures Procedure Name Priority Date/Time Associated Diagnosis Comments DIRECT ANTIGLOBULIN TEST Today 03/21/2024 13:00 EDT Encounter for other general examination HAPTOGLOBIN Routine 03/21/2024 13:00 EDT from Last 3 Months Results * DIRECT ANTIGLOBULIN TEST (03/21/2024 13:00 EDT) LORY Negative 03/21/2024 22:31 EDT [facility] Blood VENOUS BLOOD / Unknown 03/21/2024 13:00 EDT 03/21/2024 21:51 EDT Consuelo Guerrero DO BLOOD BANK TESTS Performing Organization Address City/[facility]/ZIP Co de Phone Number [facility] [address] [place] [phone] * HAPTOGLOBIN (03/21/2024 13:00 EDT) Haptoglobin 183 32 - 197 mg/dL 03/22/2024 10:25 EDT [facility] Blood VENOUS BLOOD / Unknown 03/21/2024 13:00 EDT 03/21/2024 21:50 EDT Provider Outr Resulting Lab CHEMISTRY & BLOOD GAS ORDERABLES [facility] [address] [place], [place] [id number] from Last 3 Months Care Teams Auto Fleet Manager Relationship Specialty Start Date End Date Ashley Chavez ARNP [address] [place] [address] PCP - General 07/11/10
--- OUTSIDE RECORDS SUMMARY | 2024-03-23 13:58 | XMS_ITS | Encounter Summary ---
Author Organization [facility] Address [address] [place] [address] Care Team Providers Care Waste Disposal Leakage Tester Name Role Phone Ashley Chavez Primary Care Provider Encounter Details Date Type Department Care Team (Latest Contact Info) Description 05/12/2019 13:18 EDT - 05/12/2019 23:59 EDT Hospital Encounter [address] [address] Unknown, Provider, Discharge Disposition: Home or Self [...] on filedocumented in this encounter Care Teams Waste Disposal Leakage Tester Relationship Specialty Start Date End Date Ashley Chavez ARNP [address] [place] [address] PCP - General 07/11/10 documented as of this encounter
--- OUTSIDE RECORDS SUMMARY | 2024-03-23 13:58 | XMS_ITS | Encounter Summary ---
Author Organization [facility] Address [address] [place] [address] Care Team Providers Care Talent Acquisition Manager Name Role Phone Ashley Chavez Primary Care Provider [phone] Encounter Details Date Type Department Care Team (Late st Contact Info) Description 10/30/2022 Lab Requisition [facility] Pathology & Laboratory Medicine - [address] [address] Outr Resulting Lab, Provider Social History Tobacco [...] Stranded) <12.3 <30.0 IU/mL 11/03/2022 13:08 EDT [facility] Comment: ? Negative: ??<30.0 IU/mL ? Borderline Positive: ??30.0 - 75.0 IU/mL ? Positive: ??>75.0 IU/mL Results were obtained with the INOVA QUANTA Lite dsDNA SC DOMO assay on the [employer] DSX. Blood VENOUS BLOOD / Unknown 10/29/2022 14:00 EDT 10/30/2022 19:27 EDT Provider Outr Resulting Lab IMMUNOLOGY A ND SEROLOGY ORDERABLES Performing Organization Address [facility] de Phone Number [facility] [address] [place] [address] * SM (MORENO) ANTIBODY (10/29/2022 14:00 EDT) [facility] SM (Moreno) Antibody 18.5 <20.0 Units 11/03/2022 14:26 EDT [facility] Comment: ? Negative: [...] ND SEROLOGY ORDERABLES Performing Organization Address [facility] de Phone Number [facility] [address] [place] [address] documented in this encounter Visit Diagnoses Not on filedocumented in this encounter Care Teams Talent Acquisition Manager Relationship Specialty Start Date End Date Ashley Chavez ARNP [address] [place] [address] PCP - General 07/11/10 documented as of this encounter
--- OUTSIDE RECORDS SUMMARY | 2024-03-23 13:58 | XMS_ITS | Encounter Summary ---
Author Organization [facility] Address [address] [place] [address] Care Team Providers Care Wood Grinder Name Role Phone Ashley Chavez Primary Care Provider [phone] Encounter Details Date Type Department Care Team (Late st Contact Info) Description 12/17/2021 Lab Requisition [facility] Pathology & Laboratory Medicine - [address] [id number] Outr Resulting Lab, Provider Social History Tobacco [...] Lyme Ab Negative Negative 12/18/2021 10:37 EDT [facility] Blood VENOUS BLOOD / Unknown 12/17/2021 13:30 EDT 12/17/2021 21:32 EDT Provider Outr Resulting Lab IMMUNOLOGY A ND SEROLOGY ORDERABLES Performing Organization Address [facility] Co de Phone Number [facility] [address] [place] [address] * (ABNORMAL) ANTI NUCLEAR AB (FRANCISCO), IFA (12/17/2021 13:30 EDT) FRANCISCO Interpretation Positive(A) Negative 12/18/2021 16:06 EDT [facility] Comment: For titers greater than [...] Pattern 1 1:1280 Speckled 12/18/2021 16:06 EDT [facility] Blood VENOUS BLOOD / Unknown 12/17/2021 13:30 EDT 12/17/2021 21:32 EDT Narrative [facility] - 12/18/2021 16:06 EDT Results were obtained with the INOVA NOVA Lite HEp-2 FRANCISCO Kit by indirect immunofluorescence. Provider Outr Resulting Lab IMMUNOLOGY A ND SEROLOGY ORDERABLES Performing Organization Address [facility] Co de Phone Number [facility] [address] [place] [address] documented in this encounter Visit Diagnoses Not on filedocumented in this encounter Care Teams Wood Grinder Relationship Specialty Start Date End Date Ashley Chavez ARNP [address] [place] [address] PCP - General 07/11/10 documented as of this encounter
--- OUTSIDE RECORDS SUMMARY | 2024-03-23 13:58 | XMS_ITS | Encounter Summary ---
Author Organization [facility] Address [address] [place] [address] Care Team Providers Care Dyeing Machine Back Tender Name Role Phone Ashley Chavez Primary Care Provider [phone] Encounter Details Date Type Department Care Team (Late st Contact Info) Description 05/12/2022 Lab Requisition [facility] Pathology & Laboratory Medicine - [address] [phone] Outr Resulting Lab, Provider Social History Tobacco [...] 14:32 EDT) Hold Hold 05/12/2022 22:46 EDT [facility] Blood VENOUS BLOOD / Unknown 05/12/2022 14:32 EDT 05/12/2022 21:40 EDT Provider Outr Resulting Lab LAB INFO SER VICE AND SUPPORT & PHONE RESULT Performing Organization Address [facility]/ZIP Co de Phone Number [facility] [address] [place] [address] * (ABNORMAL) HOMOCYSTEINE (05/12/2022 14:32 EDT) Homocysteine 14.7(H) 5.0 - 13.9 umol/L 05/13/2022 9:05 EDT [facility] Comment:Results may be false ly elevated if sample is not collected on ice or is not removed from cells within 1 hour of collection. Blood VENOUS BLOOD / Unknown 05/12/2022 14:32 EDT 05/12/2022 21:40 EDT Narrative [facility] - 05/13/2022 9:05 EDT [...] & BLOOD GAS ORDERABLES Performing Organization Address [facility] Co de Phone Number [facility] [address] [place] [address] * HAPTOGLOBIN (05/12/2022 14:32 EDT) Pathologist [facility] Haptoglobin 138 32 - 197 mg/dL 05/13/2022 9:55 EDT [facility] Blood VENOUS BLOOD / Unknown 05/12/2022 14:32 EDT 05/12/2022 21:36 EDT Provider Outr Resulting Lab CHEMISTRY & BLOOD GAS ORDERABLES Performing Organization Address [facility] Co de Phone Number [facility] [address] [place] [address] * (ABNORMAL) ANTI NUCLEAR AB (FRANCISCO), IFA (05/12/2022 14:32 EDT) FRANCISCO Interpretation Positive(A) Negative 05/13/2022 14:44 EDT [facility] Comment: Result is equal to or greater than 1:5120. For titers greater than or equal to 1:160 (except the centromere, nucleolar, and dense fine speckled patterns) it is recommended that specific, follow-up autoantibody testing (such as for dsDNA and Extractable Nuclear Antigens) be performed on all diffuse and/or speckled patterns. FRANCISCO Titer and Pattern 1 1:5120 Speckled 05/13/2022 14:44 EDT [facility] Blood VENOUS BLOOD / Unknown 05/12/2022 14:32 EDT 05/12/2022 21:36 EDT Narrative [facility] - 05/13/2022 14:44 EDT Results were obtained with the INOVA NOVA Lite HEp-2 FRANCISCO Kit by indirect immunofluorescence. Provider Outr Resulting Lab IMMUNOLOGY A ND SEROLOGY ORDERABLES [facility] [address] [place] [address] documented in this encounter Visit Diagnoses Not on filedocumented in this encounter Care Teams Dyeing Machine Back Tender Relationship Specialty Start Date End Date Ashley Chavez ARNP [address] [place] [address] PCP - General 07/11/10 documented as of this encounter
--- OUTSIDE RECORDS SUMMARY | 2024-03-23 13:58 | XMS_ITS | Encounter Summary ---
Author Organization [facility] Address [address] [place] [address] Care Team Providers Care Train Attendant Name Role Phone Ashley Chavez Primary Care Provider [phone] Encounter Details Date Type Department Care Team (Late st Contact Info) Description 01/07/2023 Lab Requisition [facility] Pathology & Laboratory Medicine - [address] [id number] Outr Resulting Lab, Provider Social History Tobacco [...] 56.2 55.8 - 66.1 % 01/08/2023 11:28 [facility] Albumin g/dL 3.9 3.6 - 5.2 g/dL 01/08/2023 11:28 [facility] Alpha-1 % 5.1(H) 2.9 - 4.9 % 01/08/2023 11:28 [facility] Alpha-1 g/dL 0.40 0.15 - 0.40 g/dL 01/08/2023 11:28 [facility] Alpha-2 % 7.0(L) 7.1 - 11.8 % 01/08/2023 11:28 [facility] Alpha-2 g/dL 0.50 0.50 - 1.00 g/dL 01/08/2023 11:28 [facility] Beta % 12.7 8.4 - 13.1 % 01/08/2023 11:28 [facility] Beta g/dL 0.90 0.60 - 1.20 g/dL 01/08/2023 11:28 [facility] Gamma % 19.0(H) 11.1 - 18.8 % 01/08/2023 11:28 [facility] Gamma g/dL 1.30 0.60 - 1.60 g/dL 01/08/2023 11:28 [facility] SPEP Comment No apparent monoclonal protein seen on serum electrophoresis 01/08/2023 11:28 [facility] Comment:See scanned/suppleme ntary report. Total Protein 6.9 6.3 - 8.2 g/dL 01/08/2023 11:28 [facility] Blood VENOUS BLOOD / Unknown 01/06/2023 14:40 EDT 01/07/2023 17:37 EDT Provider Outr Resulting Lab CHEMISTRY & BLOOD GAS ORDERABLES Performing Organization Address City/State/[facility] Co de Phone Number [facility] [address] [place] [address] * PROTEIN, TOTAL (01/06/2023 14:40 EDT) Blood VENOUS BLOOD / Unknown 01/06/2023 14:40 EDT 01/07/2023 17:37 EDT Provider Outr Resulting Lab CHEMISTRY & BLOOD GAS ORDERABLES Performing Organization Address [facility] Co de Phone Number [facility] [address] [place] [address] * (ABNORMAL) EXTRACTABLE NUCLEAR ANTIGEN PANEL (01/06/2023 14:40 EDT) SSA Antibody 1.3 <20.0 Units 01/08/2023 15:42 EDT [facility] Comment: ? Negative: [...] Antibody 1.5 <20.0 Units 01/08/2023 15:42 EDT [facility] Comment: ? Negative: [...] Antibody 15.3 <20.0 Units 01/08/2023 15:42 EDT [facility] Comment: ? Negative: <20.0 Units ? Weak Positive: 20.0 - 39.9 Units ? Moderate Positive: 40.0 - 80.0 Units ? Strong Positive: >80.0 Units Results were obtained with the [employer] QUANTA Lite Sm DOMO. ??Sm values obtained with different manufacturers' assay methods may not be used interchangeably. ??The magnitude of the reported IgG levels cannot be correlated to an endpoint titer. STAINED GLASS INSTALLER Antibody 149.1(H) <20.0 Units 01/08/2023 15:42 EDT [facility] Comment: ? Negative: <20.0 Units ? Weak Positive: 20.0 - 39.9 Units ? Moderate Positive: 40.0 - 80.0 Units ? Strong Positive: >80.0 Units Results were obtained with the [employer] Quanta Lite STAINED GLASS INSTALLER DOMO. STAINED GLASS INSTALLER values obtained with different children's nursery assistant's assay methods may not be used interchangeaby. ??The magnitude of the reported IgG levels cannot be be correlated to an endpoint titer. A positive result in the Quanta Lite STAINED GLASS INSTALLER DOMO indicates the presence of antibodies reactive with the STAINED GLASS INSTALLER/Sm complex but cannot distinguish between anti-Sm and anti-STAINED GLASS INSTALLER activity. Blood VENOUS BLOOD / Unknown 01/06/2023 14:40 EDT 01/07/2023 17:37 EDT Provider Outr Resulting Lab IMMUNOLOGY A ND SEROLOGY ORDERABLES [facility] [address] [place] [address] * (ABNORMAL) ANTI NUCLEAR AB (FRANCISCO), IFA (01/06/2023 14:40 EDT) FRANCISCO Interpretation Positive(A) Negative 01/08/2023 15:22 EDT [facility] Comment: Result is equal to or greater than 1:5120. For titers greater than or equal to 1:160 (except the centromere, nucleolar, and dense fine speckled patterns) it is recommended that specific, follow-up autoantibody testing (such as for dsDNA and Extractable Nuclear Antigens) be performed on all diffuse and/or speckled patterns. FRANCISCO Titer and Pattern 1 1:5120 Speckled 01/08/2023 15:22 EDT [facility] Blood VENOUS BLOOD / Unknown 01/06/2023 14:40 EDT 01/07/2023 17:37 EDT Narrative [facility] - 01/08/2023 15:22 EDT Results were obtained with the [employer] NOVA Lite HEp-2 FRANCISCO Kit by indirect immunofluorescence. Provider Outr Resulting Lab IMMUNOLOGY A ND SEROLOGY ORDERABLES Performing Organization Address City/State/[facility] Co de Phone Number [facility] [address] [place] [address] documented in this encounter Visit Diagnoses Not on filedocumented in this encounter Care Teams Train Attendant Relationship Specialty Start Date End Date Ashley Chavez ARNP [address] [place] [address] PCP - General 07/11/10 documented as of this encounter
--- OUTSIDE RECORDS SUMMARY | 2024-03-23 13:58 | XMS_ITS | Referral Summary ---
Author Organization [facility] Address [address] [place] [address] Care Team Providers Care Bull Riveter Name Role Phone Ashley Chavez Primary Care Provider [phone] Encounters Date Type Department Care Team Description 03/22/2024 Lab Requisition [facility] Pathology & Laboratory [address] [address] Cosnuelo Guerrero, DO Diaphragmatic hernia without obstruction or gangrene; Anemia, unspecified 03/21/2024 Lab Requisition [facility] Pathology & Laboratory [address] [address] Consuelo Guerrero, DO Encounter for other general examination 03/21/2024 Lab Requisition [facility] Pathology & Laboratory [address] [address] Outr Resulting Lab, Provider from Last 3 [...] file Plan of Treatment Not on file Procedures Procedure Name Priority Date/Time Associated Diagnosis Comments DIRECT ANTIGLOBULIN TEST Today 03/21/2024 13:00 EDT Encounter for other general examination HAPTOGLOBIN Routine 03/21/2024 13:00 EDT from Last 3 Months Results * DIRECT ANTIGLOBULIN TEST (03/21/2024 13:00 EDT) LORY Negative 03/21/2024 22:31 EDT [facility] Blood VENOUS BLOOD / Unknown 03/21/2024 13:00 EDT 03/21/2024 21:51 EDT Consuelo Guerrero DO BLOOD BANK TESTS Performing Organization Address City/[facility]/ZIP Co de Phone Number [facility] [address] [place], [place] [address] * HAPTOGLOBIN (03/21/2024 13:00 EDT) Haptoglobin 183 32 - 197 mg/dL 03/22/2024 10:25 EDT [facility] Blood VENOUS BLOOD / Unknown 03/21/2024 13:00 EDT 03/21/2024 21:50 EDT Provider Outr Resulting Lab CHEMISTRY & BLOOD GAS ORDERABLES [facility] [address] [place], [place] [address] from Last 3 Months Care Teams Bull Riveter Relationship Specialty Start Date End Date Ashley Chavez ARNP [address] [place] [address] PCP - General 07/11/10
--- OUTSIDE RECORDS SUMMARY | 2024-03-23 13:58 | XMS_ITS | Encounter Summary ---
Author Organization [facility] Address [address] [place] [address] Care Team Providers Care Blood Bank Order Control Clerk Name Role Phone Scott, Ashley WILLIAM Primary Care Provider [phone] Encounter Details Date Type Department Care Team (Late st Contact Info) Description 03/21/2024 Lab Requisition [facility] Pathology & Laboratory Medicine - [address] [address] Consuelo Guerrero, DO [address] [place], [place] [address] Encounter for other general examination Social History Tobacco Use Types Packs/Day Years [...] 13:00 EDT Encounter for other general examination documented in this encounter Results * DIRECT ANTIGLOBULIN TEST (03/21/2024 13:00 EDT) LORY Negative 03/21/2024 22:31 EDT [facility] Blood VENOUS BLOOD / Unknown 03/21/2024 13:00 EDT 03/21/2024 21:51 EDT Consuelo Guerrero DO BLOOD BANK TESTS [facility] [address] [place] [address] documented in this encounter Visit Diagnoses Diagnosis Encounter for other general examination documented in this encounter Care Teams Blood Bank Order Control Clerk Relationship Specialty Start Date End Date Ashley Chavez ARNP [address] [place] [address] PCP - General 07/11/10 documented as of this encounter
--- OUTSIDE RECORDS SUMMARY | 2024-03-23 13:59 | XMS_ITS | Encounter Summary ---
[place] [address] Care Team Providers Care Coke Drawer Hand Name Role Phone Magdalena Acosta MD [...] 4:15 PM EDT Office Visit Dermatology at [place] [address] [place] [address] Marek Bonilla MD [address], TODD A DERMATOLOGY [place], [place] [address] documented as of this encounter Visit Diagnoses Not on filedocumented in this encounter Care Teams Coke Drawer Hand Relationship Specialty Start Date End Date Magdalena Acosta MD [address] [place] [address] PCP - General Family Medicine 02/05/23 documented as of this encounter
--- OUTSIDE RECORDS SUMMARY | 2024-03-23 13:59 | XMS_ITS | Encounter Summary ---
Author Organization [facility] Address [address] [place] [address] Care Team Providers Care Aligning Inspector Name Role Phone Unavailable Primary Care Provider Unavailabl e Encounter Details Date Type Department Care Team (Late st Contact Info) Description 07/08/2010 10:55 EST - 07/08/2010 10:56 EST Hospital Encounter [facility] - Other [address] [place] [address] Ashley Chavez, WILLIAM [address] [place] [address] Discharge Disposition: Home or Self Care Social [...]
--- OUTSIDE RECORDS SUMMARY | 2024-03-23 13:59 | XMS_ITS | Encounter Summary ---
Author Organization [facility] [place] [address] Care Team Providers Care Plasterer Helper Name Role Phone Magdalena Acosta MD Primary Care Provider [phone] Reason for Visit * Reason Comments Coronary Artery Disease Hypertension Aortic Stenosis Encounter Details Date Type Department Care Team (Latest Contact Info) Description 07/20/2023 4:40 PM EST TH Visit (TeleHealth) Cardiology at [address] [address] Jay Maza PA [facility] [place] [address] HFrEF (heart failure with reduced ejection fraction); [...] Maza PA - 07/20/2023 4:40 PM EST [facility] Heart [...] lieu of an in person office visit. Translator: Antelmo Sharma MD ([facility] Cards) Maria Luz Mejia MD ([facility] cards) Problem List: : prior surgical [...] fraction I35.0 Mild coronary artery disease by [facility] 11/09/2022 I25.10 Heart failure with [...] notable for coronary artery protection given low keioo-he-hfvpanif distance. There was no obstruction post Valve deployment, but the stent could not be removed safely, so it was deployed. 4.0 mm x 30mm in left main. She was loaded on brilinta aka ticagrelor. Immediately post valve deployment, chest compressions to circulate central epinephrine which was administered given her hypotension, low LVEF, and low cardiac reserve. Next, the patient was transferred to [facility] for pressor and inotropic support. Pressors [...] arms and wrists. Successful right transfemoral TAVR Rnvlx-sl-Opiex with a 23 mm Ali 3 THV. We selected a 23 mm [...] leads Confirmed by MD Harshil, Haris Bell ([id number]) on 05/10/2023 8:11:46 AM Cardiac Cath 11/09/2022 [...] in chart review and direct patient contact. [id number] 0-5min 3624NFT6 6-10min 5091WYE4 11-15min 8045CZH9 16-20min x [id number] 21-30min 7181KTD7 31-40min 3741OQR7 40+ min Jay Maza PA-C Interventional Cardiology [facility] Heart and V[facility] Pager [phone] documented in this encounter Plan of Treatment Upcoming Encounters Date Type Department Care Team (Late st Contact Info) Description 03/01/2025 4:15 PM EDT Office Visit Dermatology at [place] [address] [place] [address] Marek Bonilla MD [address], [place] [address] documented as of this encounter Visit Diagnoses Diagnosis HFrEF (heart failure with reduced ejection fraction) Hypertension, unspecified type Aortic valve stenosis, etiology of cardiac valve disease unspecified documented in this encounter Care Teams Plasterer Helper Relationship Specialty Start Date End Date Magdalena Acosta MD [address] [place] [address] PCP - General Family Medicine 02/05/23 documented as of this encounter
--- OUTSIDE RECORDS SUMMARY | 2024-03-23 13:59 | XMS_ITS | Clinical Summary ---
Author Organization [facility] Address [facility] [place] [address] Care Team Providers Care Grocery Team Member Name Role Phone Magdalena Acosta MD Primary Care Provider [phone] Allergies No known active allergies Medications Medication [...] fraction 05/08/2023 Mild coronary artery disease by [facility] 11/09/2022 Heart failure with reduced e [...] Care Team Description 03/01/2024 Telephone Cardiology at [address] [address] Cynthia Monsalve RN Pre Procedure Call (DAPT hold for EGD and colo?) 02/22/2024 4:15 PM EDT Office Visit Dermatology at [address] [address] Marek Bonilla MD Seborrheic keratosis; Rosacea; Nevus 02/22/2024 Travel from Last 3 Months Immunizations Name [...] 4:15 PM EDT Office Visit Dermatology at [place] [address] [facility] [address] [place] [address] Marek Bonilla MD [address], [place] [address] Health Maintenance Due Date Last Done Comments [...] 06/05/2036 06/05/2021 Medical Devices Implanted Type Area Contract Preparer Device Identifier Shelf Expiration Date Model / Serial / Lot Valve,Aor,Pericar d,Magna,25mm ([id number]) - [id number] Implanted:Qty: 1 on 09/21/2016 by Alirio Esparza MD at [facility] IMPLANTS N/A: Heart DO NOT USE [employer] - [id number] 06/02/2020 [id number] / / [id number] Cable,Blnt,Ss,38i n ([id number]) - [id number] Implanted:Qty: 4 on 09/21/2016 by Alirio Esparza MD at [facility] IMPLANTS N/A: Chest [employer] - [id number] 04/29/2021 [id number] / / [id number] Patch,Cav,Pericar d,2x5cm ([id number]) (Autoreq) - [id number] Implanted:Qty: 1 on 09/21/2016 by Alirio Esparza MD at [facility] IMPLANTS N/A: Heart DO NOT USE [employer] - [id number] 04/21/2018 [id number] / / [id number] Tavr-05/12/2023 Implanted:Qty: 1 on 05/12/2023 by Antelmo Sharma MD Other Heart [employer] - JAIME LI [id number] / [id number] / Description:JAIME LIFESCIE NCES ABBY 3 ULTRA [...] LABORATORY Creatinine 0.81 0.70 - 1.20 mg/dL [facility] Sodium 142 135 - 145 [...] questions. Chloride 104 98 - 107 mmol/L [facility] Carbon Dioxide 26 [...] MD CHEMISTRY ORDERABLE S Performing Organization Address City/State/[facility] Co de Phone Number [facility] [place] [address] * DXA Central Spine, Hip, and/or Whole Body (Generic) (06/05/2021 11:58 AM EDT) PT CLASS O RAD ADMITDTTM RAD PT RAD INFO [id number]^E VERETT^DEBORAH ^E RAD EXAM DESC XDXAC^DEXA SCAN [...] who have questions please contact the health daycare worker that requested your imaging first. ? Electronically signed by: Rocael Villatoro MD, [facility] ([phone]), at 06/05/2021 12:00 PM Narrative 06/05/2021 12:00 [...] patients who have questions please contactthe health daycare worker that requested your imaging first. Electronically signed by: Rocael Villatoro MD, [facility]([phone]), at 06/05/2021 12:00 PM Deborah Quiroga INDUSTRIAL TECHNICIAN IMG DEXA ORDERABLES * Mammo Screening Cad Bilateral (06/05/2021 11:42 AM EDT) PT CLASS O DH RAD ADMITDTTM DH RAD PT DH RAD INFO [id number]^EV ERETT^DEBORAH^E DH RAD EXAM DESC MADDSC^SCREEN MAMMO [...] who have questions please contact the health daycare worker that requested your imaging first. ? Electronically signed by: Rocael Villatoro MD, [facility] ([phone]), at 06/05/2021 1:27 PM Narrative 06/05/2021 1:27 [...] breasts are almost entirely fatty. Procedure Note Roceal Villatoro MD - 06/05/2021 EXAMINATION: BREAST SCREEN [...] patients who have questions please contactthe health daycare worker that requested your imaging first. Electronically signed by: Rocael Villatoro MD, [facility]([phone]), at 06/05/2021 1:27 PM Deborah Quiroga APRN [...] capacity to make decision: Yes Care Teams Grocery Team Member Relationship Specialty Start Date End Date Magdalena Acosta MD [address] [place] [address] PCP - General Family Medicine 02/05/23
--- OUTSIDE RECORDS SUMMARY | 2024-03-23 13:59 | XMS_ITS | Encounter Summary ---
[place] [address] Care Team Providers Care Office Support Specialist Name Role Phone Magdalena Acosta MD Primary Care Provider [phone] Encounter Details Date Type Department Care Team [...] 4:15 PM EDT Office Visit Dermatology at [place] [address] [place] [address] Marek Bonilla MD [address], TODD A DERMATOLOGY [place], [place] [address] documented as of this encounter Visit Diagnoses Not on filedocumented in this encounter Care Teams Office Support Specialist Relationship Specialty Start Date End Date Magdalena Acosta MD [address] [place] [address] PCP - General Family Medicine 02/05/23 documented as of this encounter
--- OUTSIDE RECORDS SUMMARY | 2024-03-23 13:59 | XMS_ITS | Encounter Summary ---
[place] [address] Care Team Providers Care Outside Sales Representative Name Role Phone Magdalena Acosta MD Primary Care Provider [phone] Encounter Details Date Type Department Care Team [...] 4:15 PM EDT Office Visit Dermatology at [place] [address] [facility] [place] [address] Marek Bonilla MD [address], TODD A DERMATOLOGY [place], [place] [address] documented as of this encounter Visit Diagnoses Not on filedocumented in this encounter Care Teams Outside Sales Representative Relationship Specialty Start Date End Date Magdalena Acosta MD [address] [place] [address] PCP - General Family Medicine 02/05/23 documented as of this encounter
--- OUTSIDE RECORDS SUMMARY | 2024-03-23 13:59 | XMS_ITS | Encounter Summary ---
[place] [address] Care Team Providers Care Small Electric Engine Technician Name Role Phone Magdalena Acosta MD Primary Care Provider [phone] Reason for Visit * Reason Onset Date Comments Pre Procedure Call 03/01/2024 DAPT hold for EGD and colo? Encounter Details Date Type Department Care Team (Late st Contact Info) Description 03/01/2024 Telephone Cardiology at [address] [id number] Cynthia Monsalve RN Pre Procedure Call (DAPT [...] safe. Jay Message above left with Yenifer (technology services manager), who would be leaving this note in patient's chart for providers to schedule patient. No further questions or needs at this time. This nurse stated, note will be placed regarding this call in our chart for patient. Kezia Whitney RN, BSN Ambulatory Cardiology Clinic, [facility] [phone] * Telephone Encounter - Cynthia Monsalve RN - 03/01/2024 2:09 PM EDT Nurse Veronica from [facility] called, requesting a hold on ASA and/or Plavix for the patient's anticipated EGD and colonoscopy. -Cynthia Monsalve RN documented in this encounter Plan of Treatment Upcoming Encounters Date Type Department Care Team (Late st Contact Info) Description 03/01/2025 4:15 PM EDT Office Visit Dermatology at [place] [address] [place] [address] Marek Bonilla MD [address], [place] [address] documented as of this encounter Visit Diagnoses Not on filedocumented in this encounter Care Teams Small Electric Engine Technician Relationship Specialty Start Date End Date Magdalena Acosta MD [address] [place] [address] PCP - General Family Medicine 02/05/23 documented as of this encounter
--- OUTSIDE RECORDS SUMMARY | 2024-03-23 13:59 | XMS_ITS | Encounter Summary ---
[place] [address] Care Team Providers Care Cooker Soda Name Role Phone Magdalena Acosta MD Primary Care Provider [phone] Encounter Details Date Type Department Care Team [...] 4:15 PM EDT Office Visit Dermatology at [place] [address] [facility] [address] Marek Bonilla MD [address], TODD A DERMATOLOGY [place], [place] [address] documented as of this encounter Visit Diagnoses Not on filedocumented in this encounter Care Teams Cooker Soda Relationship Specialty Start Date End Date Magdalena Acosta MD [address] [place] [address] PCP - General Family Medicine 02/05/23 documented as of this encounter
--- OUTSIDE RECORDS SUMMARY | 2024-03-23 13:59 | XMS_ITS | Encounter Summary ---
Author Organization [facility] Address [facility] [place] [address] Care Team Providers Care Surgical Assist Name Role Phone Magdalena Acosta MD Primary Care Provider [phone] Encounter Details Date Type Department Care Team (Late st Contact Info) Description 07/29/2023 11:00 AM EST Office [place] [address] [facility] [place] [address] Mixed connective tissue disease Social History Tobacco [...] 1:5120 speckled; VIC negative; Myositis panel with TOE TRIMMER ab 149.1 (positive); Anti U1RNP IgG 119; [...] Viramontes. Magdalena Peralta MD Rheumatology Fellow Pager: [phone] * Kia Viramontes DO - 07/29/2023 11:00 AM EST ATTENDING ADDENDUM The patient's history was reviewed, and I interviewed and examined the patient with Dr. Peralta I agree with her summary, findings, and plan. documented in this encounter Plan of Treatment Upcoming Encounters Date Type Department Care Team (Late st Contact Info) Description 03/01/2025 4:15 PM EDT Office Visit Dermatology at [employer] [address] [facility] [address] Marek Bonilla MD [address] [facility], [place] [address] documented as of this encounter Results * [...] PFT FEV1/FVC Pre-BD Z-Score 0 COMPAS PFT MCW20-44 Actual Pre-BD 2.41 % COMPAS PFT LOR77-03 Predicted 1.8 % COMPAS PFT END51-71 Pre-BD % of Predicted 134 % COMPAS PFT DPF51-59 Pre-BD Z-Score 0.81 COMPAS PFT DLCO Hb [...] documented in this encounter Care Teams Surgical Assist Relationship Specialty Start Date End Date Magdalena Acosta MD [address] [place] [address] PCP - General Family Medicine 02/05/23 documented as of this encounter
--- OUTSIDE RECORDS SUMMARY | 2024-03-23 13:59 | XMS_ITS | Encounter Summary ---
Author Organization [facility] [place] [address] Care Team Providers Care Manager Digital Name Role Phone Magdalena Acosta MD Primary Care Provider [phone] Encounter Details Date Type Department Care Team (Late st Contact Info) Description 05/27/2023 Refill Cardiology at [address] [phone] Vero Marrero, RN Social History Tobacco Use Types Packs/Day Years Used Date Smoking Tobacco: Never Smokeless Tobacco: Never Alcohol Use Standard Drinks/Week Comments No 0 (1 standard drink = 0.6 oz pur e alcohol) none [facility] Inpatient Questions Answer Date Recorded [...] PM EDT TC to Nurse Sosa at [facility] to relay response from Jay Maza copied below. Nurse Sosa states they will send a new prescription to patient's preferred pharmacy and call the patient with the medication information. No print prescription sent to update med list. May 27, 2023 Jay Maza PA to [place] 05/27/23 2:44 PM OK to change ticagrelor to Clopidogrel. Now, she should be taking ticagrelor 90mg BID. When she switches, she can take ticagrelor, then the next morning, stop ticagrelor, instead take clopidogrel 300mg once, then after that 75mg once daily. Jay Marrero cosmetics demonstrator Clinic at [facility] [phone] * Telephone Encounter - Vero Marrero RN - 05/27/2023 1:46 PM EDT VM received from triage nurse Ssoa at [facility] stating patient was seen today by Dr. [...] possible. Vero Marrero RN Cardiology Clinic at [facility] [address] documented in this encounter Plan of Treatment Upcoming Encounters Date Type Department Care Team (Late st Contact Info) Description 03/01/2025 4:15 PM EDT Office Visit Dermatology at [place] [address] [place] [phone] Marek Bonilla MD [address], [place] [address] documented as of this encounter Visit Diagnoses Diagnosis Aortic valve stenosis, etiology of cardiac valve disease unspecified documented in this encounter Care Teams Manager Digital Relationship Specialty Start Date End Date Magdalena Acosta MD [address] [place] [address] PCP - General Family Medicine 02/05/23 documented as of this encounter
--- OUTSIDE RECORDS SUMMARY | 2024-03-23 13:59 | XMS_ITS | Encounter Summary ---
[place] [address] Care Team Providers Care Training And Development Assistant Name Role Phone Magdalena Acosta MD Primary Care Provider [phone] Encounter Details Date Type Department Care Team [...] 4:15 PM EDT Office Visit Dermatology at [place] [address] [place] [address] Marek Bonilla MD [address], [place]D A DERMATOLOGY [place], [place] [phone] documented as of this encounter Visit Diagnoses Not on filedocumented in this encounter Care Teams Training And Development Assistant Relationship Specialty Start Date End Date Magdalena Acosta MD [address] [place] [address] PCP - General Family Medicine 02/05/23 documented as of this encounter
--- OUTSIDE RECORDS SUMMARY | 2024-03-23 13:59 | XMS_ITS | Encounter Summary ---
[place] [address] Care Team Providers Care Candy Feeder Name Role Phone Magdalena Acosta MD Primary Care Provider [phone] Encounter Details Date Type Department Care Team (Latest Contact Info) Description 07/08/2023 12:35 PM EST Laboratory Appointment Lab [address] [place] [address] S/P TAVR (transcatheter aortic valve [...] 4:15 PM EDT Office Visit Dermatology at [place] [address] [place] [phone] Marek Bonilla MD [address], [place] [address] (work) documented as of this encounter Procedures [...] 11:56 AM EST) Neutrophil % 73.2 % [facility] Neutrophil Absolute 3.40 1.70 - 6.10 x10(3)/mc L [facility] Lymph % 16.1 % [facility] Lymphocytes Abs 0.8(L) 0.9 - 3.2 x10(3)/mc L [facility] Monocyte % 9.7 % [facility] Monocyte Abs 0.4 0.3 - 0.9 x10(3)/mc L [facility] Eos % 0.4 % [facility] Eosinophils Abs 0.0 0.0 - 0.4 x10(3)/mc L [facility] Basophil % 0.4 % [facility] Baso Absolute 0.0 0.0 - 0.1 x10(3)/mc L [facility] Immature Gran % 0.20 % [facility] Comment: Immature granulocytes(IG's)percentage and absolute count will include metamyelocytes, myelocytes, and promyelocytes. Blood smears from CBCs yielding IG's will be scanned manually for concordance. If this scan disagrees with the automated IG or if promyelocytes are noted, a manual differential will be performed. Immature Gran Absolute 0.01 0.00 - 0.04 x10(3)/mc L [facility] Blood 07/08/2023 11:5 6 AM EST 07/08/2023 12:02 PM EST Narrative Resulting Agency Comment Spec In Lab Minh TOBAR HEMATOLOGY ORDERABLE S [facility] [place] [address] * (ABNORMAL) Hemogram (07/08/2023 11:56 AM EST) White Blood Cell 4.6 4.0 - 9.5 x10(3)/mc L [facility] Red Blood Cell 3.34(L) 4.00 - 5.21 x10(6)/mc L [facility] Hemoglobin 11.0(L) 11.7 - 15.5 g/dL [facility] Hematocrit 33.2(L) 35.7 - 45.8 % [facility] Mean Cell Volume 99.4(H) 82.6 - 94.4 fL [facility] Mean Cell Hemoglobin 32.9(H) 27.1 - 32.0 pg [facility] Mean Cell Hemoglobin Concentration 33.1 31.7 - 35.0 g/dL [facility] Platelet 166 145 - 357 x10(3)/mc L [facility] RDW Standard Deviation 47.1(H) 37.0 - 46.0 fL [facility] RDW coefficient of variation 13.0 11.5 - 14.1 % [facility] Mean Platelet Volume 9.0 7.6 - 12.9 fL [facility] NRBC% auto 0.0 % [facility] NRBC Absolute 0.000 0.000 - 0.000 x10(3)/mc L [facility] Blood 07/08/2023 11:5 6 AM EST 07/08/2023 12:02 PM EST Narrative Resulting Agency Comment Spec In Lab Minh TOBAR HEMATOLOGY ORDERABLE S [facility] [place] [address] * (ABNORMAL) Comprehensive metabolic panel (non-fasting) (07/08/2023 11:56 AM EST) Glucose 93 65 - 199 mg/dL [facility] Comment:Diabetes: >=200 mg/d L plus symptoms Blood Urea Nitrogen 19(H) 8 - 18 mg/dL [facility] Creatinine 0.81 0.70 - 1.20 mg/dL [facility] Sodium 142 135 - 145 mmol/L [facility] Potassium 3.8 3.5 - 5.0 mmol/L [facility] Comment: Please note: ??Patients with WBC >100,000 may have falsely elevated Potassium levels. ??For accurate Potassium quantification in these patients send serum separator tube (gold top) for subsequent determinations. ??Contact the Clinical Chemistry Laboratory if there are any questions. Chloride 104 98 - 107 mmol/L [facility] Carbon Dioxide 26 22 - 31 mmol/L [facility] Anion Gap 12 5 - 15 mmol/L [facility] Calcium 10.2 8.5 - 10.5 mg/dL [facility] Protein, Total 7.4 6.1 - 8.0 g/dL [facility] Albumin 4.1 3.2 - 5.2 g/dL [facility] Aspartate Aminotransferase 24 0 - 30 unit/L [facility] Alanine Aminotransferase 12 0 - 30 unit/L [facility] Alkaline Phosphatase 93 35 - 105 unit/L [facility] Bilirubin, Total 0.3 0.2 - 1.3 mg/dL [facility] Est Glomerular Filtration Rate 80 >=60 mL/min/1. 73 m?? [facility] Comment: This patient's estimated GFR was [...] Lab Alirio Esparza MD CHEMISTRY ORDERABLE S [facility] [place] [address] documented in this encounter Visit Diagnoses Diagnosis S/P TAVR (transcatheter aortic valve replacement) Severe aortic stenosis Aortic valve disorders documented in this encounter Care Teams Candy Feeder Relationship Specialty Start Date End Date Magdalena Acosta MD [address] [place] [address] PCP - General Family Medicine 02/05/23 documented as of this encounter
--- OUTSIDE RECORDS SUMMARY | 2024-03-23 13:59 | XMS_ITS | Encounter Summary ---
Author Organization [facility] Address [address] [place] [address] Care Team Providers Care Cooper Apprentice Name Role Phone Scott Ashley WILLIAM Primary Care Provider [phone] Encounter Details Date Type Department Care Team (Late st Contact Info) Description 11/10/2013 Results Only [facility] [phone] Jeni Laird, CUSTOMER SERVICE CONSULTANT [address] [place], [place] [phone] Social History Tobacco Use Types Packs/Day Years [...] ? 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 Accession #: ? [id number] : ? 1955 (Age: 58) ??F ?Collect Date: ? 11/10/2013 Location: ? [facility] ? Receive Date: ? 11/14/2013 Provider: ?JENI LAIRD CUSTOMER SERVICE CONSULTANT Copy to: ? Specimen/Source: ?Pap Test, [...] Report PAUL ARELLANO 11/10/2013 11/14/2013 Jeni Laird CUSTOMER SERVICE CONSULTANT PATHOLOGY ORDERAB LES Performing Organization Address City/State/[facility] Co de Phone Number PAUL ARELLANO [address] [place] [address] documented in this encounter Visit Diagnoses Not on filedocumented in this encounter Care Teams Cooper Apprentice Relationship Specialty Start Date End Date Ashley Chavez ARNP [address] [place] [address] PCP - General 07/11/10 documented as of this encounter
--- OUTSIDE RECORDS SUMMARY | 2024-03-23 13:59 | XMS_ITS | Encounter Summary ---
[place] [address] Care Team Providers Care Parking Lot Chauffeur Name Role Phone Magdalena Acosta MD Primary Care Provider [phone] Encounter Details Date Type Department Care Team (Latest Contact Info) Description 10/05/2023 10:52 AM EST - 10/05/2023 11:59 PM [facility] Encounter [place] [address] Mixed connective tissue disease Discharge Disposition: Home [...] 4:15 PM EDT Office Visit Dermatology at [place] [address] [place] [address] Marek Bonilla MD [address], [place] [address] documented as of this encounter Procedures Procedure [...] PFT FEV1/FVC Pre-BD Z-Score 0 COMPAS PFT TPF76-64 Actual Pre-BD 2.41 % COMPAS PFT GRY78-71 Predicted 1.8 % COMPAS PFT NKK18-82 Pre-BD % of Predicted 134 % COMPAS PFT YYA20-00 Pre-BD Z-Score 0.81 COMPAS PFT DLCO Hb [...] tissue documented in this encounter Care Teams Parking Lot Chauffeur Relationship Specialty Start Date End Date Magdalena Acosta MD [address] [place] [address] PCP - General Family Medicine 02/05/23 documented as of this encounter
--- OUTSIDE RECORDS SUMMARY | 2024-03-23 13:59 | XMS_ITS | Encounter Summary ---
[place] [address] Care Team Providers Care Emu Farmer Name Role Phone Magdalena Acosta MD Primary Care Provider [phone] Encounter Details Date Type Department Care Team [...] EDT Office Visit Dermatology at [place] [address] [place] [address] Marek Bonilla MD [address], TODD A DERMATOLOGY [place], [place] [phone] documented as of this encounter Visit Diagnoses Not on filedocumented in this encounter Care Teams Emu Farmer Relationship Specialty Start Date End Date Magdalena Acosta MD [address] [place] [address] PCP - General Family Medicine 02/05/23 documented as of this encounter
--- OUTSIDE RECORDS SUMMARY | 2024-03-23 13:59 | XMS_ITS | Encounter Summary ---
Author Organization [facility] Address [address] [place] [address] Care Team Providers Care Diesel Truck Driver Name Role Phone Scott, Ashley WILLIAM Primary Care Provider [phone] Encounter Details Date Type Department Care Team (Late st Contact Info) Description 12/23/2016 Results Only [facility] [phone] Deborah Quiroga, GSE MECHANIC [address] [place] [phone] Social History Tobacco Use Types Packs/Day Years [...] ? 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 Accession #: ? [id number] ? : ? 1955 (Age: 61) ??F ?Collect Date: ? 12/23/2016 ? Location: ? [facility] ? Receive Date: ? 12/25/2016 ? Provider: DEBORAH QUIROGA [employer] Copy to: ? Final Report SPECIMEN ADEQUACY ? Satisfactory for Evaluation - transformation zone component present GENERAL CATEGORIZATION ? Negative for Intraepithelial Lesion or Malignancy ?? Last Menstrual Period: years Specimen/Source: ??Pap Test, Cervix, ThinPrep Imaging System with manual evaluation Document reviewed and electronically signed by: ? Monica Cason [facility](ASCP) ? Report ??Date: 01/06/2017 09:11 HPV with Pap Test ? Date Ordered: ? 01/06/2017 ? Status: ?? Signed Out ?Date Complete: ? 01/07/2017 ? By: ??System Interface ? Date Reported: ? 01/07/2017 ? Interpretation RESULT: Negative for HPV. No E6 or E7 mRNA is detected from HPV types 16,18,31,33,35, 39,45,51,52,56,58, 59,66, and 68 by paratransit operator mediated amplification. Comments Document reviewed and electronically signed by: ? System Interface ? Report date: 01/07/2017 By the signature above, the attending physician certifies that he/she has personally conducted a gross and/or microscopic examination of the described specimens and rendered or confirmed the above diagnosis. End of Report [facility] 12/23/2016 12/25/2016 Deborah Quiroga GSE MECHANIC PATHOLOGY ORDERABLES [facility] [address] [place] [address] documented in this encounter Visit Diagnoses Not on filedocumented in this encounter Care Teams Diesel Truck Driver Relationship Specialty Start Date End Date Ashley Chavez ARNP [address] [place] [address] PCP - General 07/11/10 documented as of this encounter
--- OUTSIDE RECORDS SUMMARY | 2024-03-23 13:59 | XMS_ITS | Encounter Summary ---
Author Organization [facility] Address [address] [place] [address] Care Team Providers Care Corporate Quality Manager Name Role Phone Unavailable Primary Care Provider Unavailabl e Encounter Details Date Type Department Care Team (Late st Contact Info) Description 07/08/2010 Results Only [facility] Non-Invasive Cardiology - [facility] [address] [place] [address] Ashley Chavez, WILLIAM [address] [place] [address] Social History Tobacco Use Types Packs/Day Years [...] ? 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 Accession #: ? [id number] ? : ? 1955 (Age: 54) ??F [...] Ashley THOMAS PATHOLOGY ORDERABLES PAUL ARELLANO [address] [place] [address] documented in this encounter Visit Diagnoses Not on filedocumented in this encounter
--- OUTSIDE RECORDS SUMMARY | 2024-03-23 13:59 | XMS_ITS | Encounter Summary ---
Author Organization [facility] Address [address] [place] [address] Care Team Providers Care Plastic Production Machine Setter Name Role Phone Unavailable Primary Care Provider Unavailabl e Encounter Details Date Type Department Care Team (Late st Contact Info) Description 03/24/2007 11:06 EDT - 03/24/2007 11:59 EDT Hospital Encounter [facility] - Other [address] [place] [address] Ashley Chavez ARNP [address] [place] [address] Discharge Disposition: Home or Self Care Social [...]
--- OUTSIDE RECORDS SUMMARY | 2024-03-23 13:59 | XMS_ITS | Encounter Summary ---
Author Organization [facility] Address [address] [place] [address] Care Team Providers Care Control Panel Builder Name Role Phone Ashley Chavez Primary Care Provider [phone] Encounter Details Date Type Department Care Team (Late st Contact Info) Description 06/23/2016 Results Only [place] [facility] [phone] Matthew Acevedo, DO [address] [place] [address] [place] [address] Social History Tobacco Use Types Packs/Day [...] ? 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 Accession #: ? [id number] : ? 1955 (Age: 60) ??F ?Collect [...] KARYOTYPE: 46,XX[25] End of Report [facility] 06/23/2016 06/24/2016 Matthew Acevedo DO PATHOLOGY ORDER JODIE [facility] [address] [place] [address] * FLOW CYTOMETRY (06/23/2016 0:00 EST) Pathology Report: FLOW CYTOMETRY REPORT Reports generated via electronic interface contain original data; however they are lacking the format of the original report. Caution should be taken when reading/interpreting unformatted reports. Name: ? PURNIMA THAKCER ? Accession #: ? [id number] : ? 1955 (Age: 60) ??F ?Collect Date: ? 06/23/2016 00:00 Location: ? [facility] ? Receive Date: ? 06/24/2016 08:00 Provider: ?MATTHEW ACEVEDO DO Copy to: ?WINTER HANKINS LASTING MACHINE OPERATOR HAND METHOD MARIO ALBERTO RAMOS MD ? FINAL IMMUNOPHENOTYPIC INTERPRETATION: ? Bone marrow, flow cytometric analysis: -No immunophenotypic evidence of a clonal cell population. ??See comment. ? COMMENT: The results of flow cytometry show no immunophenotypic evidence of involvement by a clonal lymphoproliferative or myeloproliferative disorder. ??Correlation of these findings with morphologic and clinical data is essential. ??Please refer to pathology report number [id number] for morphologic details. ? Document reviewed and [...] the Department of Pathology and Laboratory Medicine, [place] ??It has not been cleared or [...] testing. End of Report ?? [facility] 06/23/2016 06/24/2016 8:0 0 EST Matthew Acevedo DO PATHOLOGY ORDER JODIE [facility] [address] [place] [address] * BONE MARROW/HEMPATH CONSULT (06/23/2016 0:00 EST) Pathology Report: BONE MARROW REPORT Reports generated via electronic interface contain original data; however they are lacking the format of the original report. Caution should be taken when reading/interpreting unformatted reports. Name: ? 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 Accession #: ? [id number] : ? 1955 (Age: 60) ??F ?Collect Date: ? 06/23/2016 Location: ? [facility] ? Receive Date: ? 06/24/2016 Provider: ? MATTHEW ACEVEDO DO Copy to: ?WINTER HANKINS LASTING MACHINE OPERATOR HAND METHOD MARIO ALBERTO RAMOS MD ? DIAGNOSIS: Peripheral [...] #1: Aggregate biopsy length: 8 mm with supply technician trabeculae of lamellar bone, cellular bone marrow, [...] SEE ABOVE DISCUSSION Lambda (polyclonal, Dako) ??(B1): Sproul (polyclonal, Dako) ??(B1): Biopsy (decalcified) #2: Aggregate biopsy length: 8 mm with supply technician trabeculae of lamellar bone, cellular bone marrow, [...] (M115, Leica) ??(B2): Lambda (polyclonal, Dako) ??(B2): Sproul (polyclonal, Dako) ??(B2): NOTE: ??One or more [...] ? 1% Blasts ?1% Special Studies Cytogenetics ([id number]): Pending. Flow Cytometry ([id number]): No immunophenotypic evidence of a clonal cell population. ? End of Report [facility] 06/23/2016 06/24/2016 Matthew Acevedo DO PATHOLOGY ORDER JODIE [facility] [address] [place] [address] documented in this encounter Visit Diagnoses Not on filedocumented in this encounter Care Teams Control Panel Builder Relationship Specialty Start Date End Date Ashley Chavez ARNP [address] [place] [address] PCP - General 07/11/10 documented as of this encounter
--- OUTSIDE RECORDS SUMMARY | 2024-03-23 13:59 | XMS_ITS | Encounter Summary ---
Author Organization [facility] [place] [address] Care Team Providers Care Flat Folding Machine Operator Name Role Phone Magdalena Acosta MD Primary Care Provider [phone] Reason for Referral * Diagnostic Test (Routine) - New Request Specialty Diagnoses / Procedures Referred By Contac t Referred To Contact Cardiology Diagnoses S/P TAVR (transcatheter aortic valve replacement) Procedures Echocardiogram Transthoracic Antelmo Sharma MD [facility] [place] [address] [facility] [place] [address] Referral ID Status Reason Start Date Expiration Date Visits Requested Visits Authorized [id number] New Request Specialty Service Requested 12/16/2023 12/15/2024 1 1 Encounter Details Date Type Department Care Team (Late st Contact Info) Description 12/16/2023 Orders Only Cardiology at [address] [address] Antelmo Sharma MD [facility] [place] [address] S/P TAVR (transcatheter aortic valve [...] Office Visit Dermatology at [place] [address] [place] [phone] Marek Bonilla MD [address], [place] [address] Scheduled Orders Name Type Priority Associated Diagnoses [...] replacement) documented in this encounter Care Teams Flat Folding Machine Operator Relationship Specialty Start Date End Date Magdalena Acosta MD [address] [place] [address] PCP - General Family Medicine 02/05/23 documented as of this encounter
--- OUTSIDE RECORDS SUMMARY | 2024-03-23 13:59 | XMS_ITS | Encounter Summary ---
Author Organization [place] [address] Care Team Providers Care Television Camera Operator Name Role Phone Magdalena Acosta MD Primary Care Provider [phone] Encounter Details Date Type Department Care Team (Late st Contact Info) Description 07/08/2023 10:15 AM EST Office Visit Cardiology at [address] [phone] Severe aortic stenosis Social History Tobacco Use Types Packs/Day Years Used Date Smoking Tobacco: Never Smokeless Tobacco: Never Alcohol Use Standard Drinks/Week Comments No 0 (1 standard drink = 0.6 oz pur e alcohol) none [facility] Inpatient Questions Answer Date Recorded Does [...] 4:15 PM EDT Office Visit Dermatology at [place] [address] [place] [address] Marek Bonilla MD [address], [place] [address] documented as of this encounter Procedures Procedure [...] (Bezet) 449 ms MUSE SYSTEM Calculated P [place] 66 degrees MUSE SYSTEM Calculated R [place] 60 degrees MUSE SYSTEM Calculated T [place] 53 degrees MUSE SYSTEM INTERPRETATION Normal sinus rhythm Minimal voltage criteria for LVH, may be normal variant ( Sokolow-Orozco ) ST & T wave abnormality, consider lateral ischemia ??vs. repolarization abnormality from LVH Abnormal ECG When compared with ECG of 13-MAY-2023 09:22, Premature ventricular complexes are no longer Present Minimal criteria for Septal infarct are no longer Present Confirmed by Maxx Best ([id number]) on 07/09/2023 10:07:22 AM MUSE SYSTEM 07/08/2023 10:2 7 AM EST 07/09/2023 10:07 AM EST Brody Kaplan APRN ECG ORDERABLES MUSE SYSTEM documented in this encounter Visit Diagnoses Diagnosis Severe aortic stenosis Aortic valve disorders documented in this encounter Care Teams Television Camera Operator Relationship Specialty Start Date End Date Magdalena Acosta MD [address] [place] [address] PCP - General Family Medicine 02/05/23 documented as of this encounter
--- OUTSIDE RECORDS SUMMARY | 2024-03-23 13:59 | XMS_ITS | Encounter Summary ---
Author Organization [facility] Address [address] [place] [address] Care Team Providers Care Bay Stocker Name Role Phone Unavailable Primary Care Provider Unavailabl e Encounter Details Date Type Department Care Team (Late st Contact Info) Description 03/24/2007 Results Only [facility] Non-Invasive Cardiology - [facility] [address] [place], [place] [address] Ashley Chavez ARNP [address] [place] [address] Social History Tobacco Use Types Packs/Day Years [...] ? 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 Accession #: ? [id number] : ? 1955 (Age: 51) ??F ?Collect Date: ? 03/24/2007 Location: ? [facility] ? Receive Date: ? 03/28/2007 Provider: ?ASHLEY THOMAS Copy to: ? Specimen/Source: ?ThinPrep Pap Test, Endocervix, processed on Poptent ThinPrep Imaging System, with manual evaluation Last [...] Ashley THOMAS PATHOLOGY ORDERABLES PAUL ARELLANO [address] [place] [address] documented in this encounter Visit Diagnoses Not on filedocumented in this encounter
--- OUTSIDE RECORDS SUMMARY | 2024-03-23 13:59 | XMS_ITS | Encounter Summary ---
Author Organization [facility] Address [address] [place] [address] Care Team Providers Care Painting Worker Name Role Phone Unavailable Primary Care Provider Unavailabl e Encounter Details Date Type Department Care Team (Late st Contact Info) Description 04/20/2005 Results Only [facility] - Maple conversion [address] [place] [address] Ziggy Valiente MD [address] [place] [phone] Social History Tobacco Use Types Packs/Day Years [...] ? 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 Accession #: ? [id number] ? : ? 1955 (Age: 49) ??F [...] correlation with endoscopic appearance is recommended. (Dr. Chino)/[facility] Document reviewed and electronically signed by: TYRON [...] is entirely submitted in one cassette. ??(Arabella Santos)/[facility] End of Report PAUL ARELLANO 04/20/2005 04/21/2005 15: 04 EDT Ziggy Valiente MD PATHOLOGY ORDERABLES PAUL ARELLANO [address] [place] [address] documented in this encounter Visit Diagnoses Not on filedocumented in this encounter
--- OUTSIDE RECORDS SUMMARY | 2024-03-23 13:59 | XMS_ITS | Encounter Summary ---
Author Organization [facility] [place] [address] Care Team Providers Care Overnight Caregiver Name Role Phone Magdalena Acosta MD Primary Care Provider [phone] Reason for Referral * Diagnostic Test (Routine) - Closed Specialty Diagnoses / Procedures Referred By Contac t Referred To Contact Cardiology Diagnoses S/P TAVR (transcatheter aortic valve replacement) Procedures Echocardiogram Transthoracic Vinod Juárez PA [facility] [place] [address] [facility] [place] [address] Referral ID Status Reason Start Date Expiration Date V isits Requested Visits Authorized [id number] Closed Specialty Service Requested 05/22/2023 05/21/2024 1 1 Reason for Visit * Diagnostic Test (Routine) - Closed Specialty Diagnoses / Procedures Referred By Contac t Referred To Contact Cardiology Diagnoses S/P TAVR (transcatheter aortic valve replacement) Procedures Echocardiogram Transthoracic Vinod Juárez PA [facility] [place] [address] [facility] [place] [address] Referral ID Status Reason Start Date Expiration Date V isits Requested Visits Authorized [id number] Closed Specialty Service Requested 05/22/2023 05/21/2024 1 1 Encounter Details Date Type Department Care Team (Latest Contact Info) Description 07/08/2023 10:19 AM EST - 07/08/2023 11:59 PM EST Hospital Encounter Non[place] [address] Alirio Esparza MD S/P TAVR (transcatheter aortic [...] Verio test strips Strip USE DAILY 01/03/2022 PerfectoreTouch Delica Plus Lancet 33 gauge Misc USE [...] 4:15 PM EDT Office Visit Dermatology at [place] [address] [facility] [place] [phone] Marek Bonilla MD [address] [place] [address] documented as of this encounter Procedures Procedure [...] EST Narrative 07/08/2023 12:26 PM EST [address] [place] [address] ? Echocardiogram Report Name: ONESIMO THACKER ?Study Date: 07/08/2023 10:31 AMBP: 118/60 mmHg ? Patient Location: : 1955 ? Height: 155 cm ? Account: [id number] Age: 67 yrs ? Weight: 74 kg Gender: Female ?BSA: 1.7 m2 Ordering Physician: ALIRIO ESPARZA Referring Physician: VNIOD JUÁREZ Performed By: Felicia Norris RDCS Reason For Study: S/P TAVR Exam Location: [facility]. Interpretation Summary Left ventricular systolic function [...] no significant change (post-procedure). Procedure Limited - 21379. Doppler - 18076. Color Doppler - 13367. Satisfactory quality. This study is limited because [...] max donal: 75.1 cm/sec MV A max odnal: 102.2 cm/sec MV E/A: 0.73 MV dec [...] Note Lee Kincaid MD - 07/08/2023 [address] [place] [address] Echocardiogram Report Name: ANDREWONESIMO Study Date: 0:31 AMBP: 118/60 mmHg Patient Location: : 1955 Height: 155 cm Account: [id number] Age: 67 yrs Weight: 74 kg Gender: Female BSA: 1.7 m2 Ordering Physician: ALIRIO ESPARZA Referring Physician: VINOD JUÁREZ Performed By: Felicia Norris RDCS Reason For Study: S/P TAVR Exam Location: [facility]. Interpretation Summary Left ventricular systolic function [...] is nosignificant change (post-procedure). Procedure Limited - 96791. Doppler - 67317. Color Doppler - 47875. Satisfactoryquality. This study is limited because of [...] dec time: 0.21 sec Lat Peak E' Odnal: 3.4 cm/sec E/ e' (lat): 21.9 Med Peak E' Dnoal: 4.1 cm/sec E/e' (med): 18.2 E/e' Average: [...] replacement) documented in this encounter Care Teams Overnight Caregiver Relationship Specialty Start Date End Date Magdalena Acosta MD [address] [place] [address] PCP - General Family Medicine 02/05/23 documented as of this encounter
--- OUTSIDE RECORDS SUMMARY | 2024-03-23 13:59 | XMS_ITS | Encounter Summary ---
[place] [address] Care Team Providers Care E Business Consultant Name Role Phone Magdalena Acosta MD Primary Care Provider [phone] Reason for Visit * Reason Comments Annual Exam Encounter Details Date Type Department Care Team (Late st Contact Info) Description 02/22/2024 4:15 PM EDT Office Visit Dermatology at [address] [phone] Marek Bonilla MD [address] [facility] A DERMATOLOGY [place], [place] [phone] Seborrheic keratosis; Rosacea; Nevus Social History Tobacco [...] cutaneous and ocular 3. Previously told by entry specialists that she had corneal tears from her [...] 4:15 PM EDT Office Visit Dermatology at [place] [address] [place] [address] Marek Bonilla MD [address] [facility], [place] [address] documented as of this encounter Visit Diagnoses Diagnosis Seborrheic keratosis Other seborrheic keratosis Rosacea Nevus Benign neoplasm of skin, site unspecified documented in this encounter Care Teams E Business Consultant Relationship Specialty Start Date End Date Magdalena Acosta MD [address] [place] [address] PCP - General Family Medicine 02/05/23 documented as of this encounter
--- OUTSIDE RECORDS SUMMARY | 2024-03-23 13:59 | XMS_ITS | Encounter Summary ---
Author Organization [facility] Address [address] [place] [address] Care Team Providers Care Phytochemistry Professor Name Role Phone Unavailable Primary Care Provider Unavailabl e Encounter Details Date Type Department Care Team (Late st Contact Info) Description 06/29/2007 Results Only [facility] - Maple conversion [address] [place] [address] Sánchez Acevedo MD [address] [place] [address] Social History Tobacco Use Types Packs/Day Years [...] ? 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 Accession #: ? [id number] ? : ? 1955 (Age: 51) ??F [...] covered by a smooth white serosa. ??Three fulfillment representative sections of the gallbladder are submitted in one cassette. ??(Sriram Elias/[facility] End of Report [facility] 06/29/2007 06/29/2007 21: 23 EST Sánchez Acevedo MD PATHOLOGY ORDERABLE [facility] [address] [place] [address] documented in this encounter Visit Diagnoses Not on filedocumented in this encounter
--- OUTSIDE RECORDS SUMMARY | 2024-03-23 13:59 | XMS_ITS | Encounter Summary ---
Author Organization [facility] [place] [address] Care Team Providers Care Racing Secretary Name Role Phone Magdalena Acosta MD Primary Care Provider [phone] Reason for Visit * Reason Comments Aortic Stenosis Coronary Artery Disease Hypertension Encounter Details Date Type Department Care Team (Latest Contact Info) Description 11/16/2023 11:40 AM EDT TH Visit (TeleHealth) Cardiology at [address] [address] [facility] [place] [address] Aortic valve stenosis, etiology of cardiac valve disease unspecified; Coronary artery disease, unspecified vessel or lesion type, unspecified whether angina present, unspecified whether [place] or transplanted heart Social History Tobacco Use Types Packs/Day Years Used Date Smoking Tobacco: Never Smokeless Tobacco: Never Alcohol Use Standard Drinks/Week Comments No 0 (1 standard drink = 0.6 oz pur e alcohol) none [facility] Inpatient Questions Answer Date Recorded [...] from the original note were not included. [facility] Interventional Cardiology CARDIOLOGY TELE VISIT NOTE 11/16/23 Patient: Purnima Thacker Prior to the initiation of our discussion, the risks and benefits of tele health visits were discussed, and the patient consented verbally to this being a virtual telehealth visit in lieu of an in person office visit. CARDIOLOGISTS: Antelmo Sharma MD ([facility] Cards) Maria Luz Mejia MD ([facility] Cards - [facility]) Problem List: Aortic valve stenosis: prior [...] fraction I35.0 Mild coronary artery disease by [facility] 11/09/2022 I25.10 Heart failure with [...] notable for coronary artery protection given low sotfv-rb-hvsvqsrg distance. There was no obstruction post Valve [...] had a very reassuring recent echo in [facility], in scanned docs. LVEF 55%. Valve [...] leads Confirmed by MD Harshil, Haris Bell ([id number]) on 05/10/2023 8:11:46 AM Cardiac Cath 11/09/2022 [...] in one year. EKATERINA Thompson Time spent: 0193QOP6 0-5min 4825FFD4 6-10min 2200HKV2 11-15min x 0783ZHU0 16-20min 5669SDG1 21-30min 4992EKF6 31-40min 7407EGD7 40+ min Jay Maza PA-C Interventional Cardiology [facility] Pager [phone] documented in this encounter Plan of Treatment Upcoming Encounters Date Type Department Care Team (Late st Contact Info) Description 03/01/2025 4:15 PM EDT Office Visit Dermatology at [address] [place] [address] Marek Bonilla MD [address] [facility], [place] [address] documented as of this encounter Visit Diagnoses Diagnosis Aortic valve stenosis, etiology of cardiac valve disease unspecified Coronary artery disease, unspecified vessel or lesion type, unspecified whether angina present, unspecified whether [place] or transplanted heart documented in this encounter Care Teams Racing Secretary Relationship Specialty Start Date End Date Magdalena Acosta MD [address] [place] [address] PCP - General Family Medicine 02/05/23 documented as of this encounter
--- OUTSIDE RECORDS SUMMARY | 2024-03-23 13:59 | XMS_ITS | Encounter Summary ---
Author Organization [facility] Address [address] [place] [address] Care Team Providers Care Rn Research Name Role Phone Scott Ashley WILLIAM Primary Care Provider [phone] Encounter Details Date Type Department Care Team (Late st Contact Info) Description 05/12/2019 Results Only [facility] [phone] Nadira Gregorio MD [address] [place] [phone] Social History Tobacco Use Types Packs/Day [...] ? 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 Accession #: ? [id number] ? : ? 1955 (Age: 63) ??F ? Collect Date: ? 05/12/2019 ? Location: ? [facility] ? Receive Date: ? 05/12/2019 ? Provider: NADIRA GREGORIO MD Copy to: WINTER HANKINS HAT FINISHING MATERIALS PREPARER ? Final Pathologic Diagnosis: COLON, CECUM, POLYP, [...] (ASCP) 05/12/2019 6:08 PM End of Report [facility] 05/12/2019 16:0 3 EDT 05/12/2019 16:03 EDT Nadira Gregorio MD PATHOLOGY ORDERABLES [facility] [address] [place] [address] documented in this encounter Visit Diagnoses Not on filedocumented in this encounter Care Teams Rn Research Relationship Specialty Start Date End Date Ashley Chavez ARNP [address] [place] [address] PCP - General 07/11/10 documented as of this encounter
--- OUTSIDE RECORDS SUMMARY | 2024-03-23 13:59 | XMS_ITS | Encounter Summary ---
Author Organization [facility] [place] [address] Care Team Providers Care Director Public Service Name Role Phone Magdalena Acosta MD Primary Care Provider [phone] Encounter Details Date Type Department Care Team (Late st Contact Info) Description 12/02/2023 11:15 AM EDT Office [place] [address] Magdalena Peralta MD [facility] [place] [address] Mixed connective tissue disease Social History Tobacco [...] 1:5120 speckled; VIC negative; Myositis panel with ENGINE SPECIALIST ab 149.1 (positive); Anti U1RNP IgG 119; [...] list of questions that she sent via [facility] ahead of her visit, which we discussed [...] exposure. She has an appointment with her Instrument Tester scheduled in January. (Dr Bonilla in [place]) ROS (positives in bold): Gen: no fevers, [...] but I encouraged her to contact her Instrument Tester to see if she could have her [...] Dr. Tanisha Peralta MD Rheumatology Fellow Pager: [phone] * Federico Yee MD - 12/02/2023 11:15 [...] 4:15 PM EDT Office Visit Dermatology at [place] [address] [place] [address] Marek Bonilla MD [address] [facility] [address] Scheduled Orders Name Type Priority Associated Diagnoses Orde r Schedule EKG 12 Lead ECG Routine Mixed connective tissue disease Expected: 12/02/2023, Expires: 06/03/2024 documented as of this encounter Visit Diagnoses Diagnosis Mixed connective tissue disease Other specified diffuse disease of connective tissue documented in this encounter Care Teams Director Public Service Relationship Specialty Start Date End Date Magdalena Acosta MD [address] [place] [address] PCP - General Family Medicine 02/05/23 documented as of this encounter
--- OUTSIDE RECORDS SUMMARY | 2024-03-23 14:00 | XMS_ITS | Encounter Summary ---
Author Organization [place] [id number] Care Team Providers Care Lime Plant Operator Name Role Phone Magdalena Acosta MD Primary Care Provider [phone] Reason for Visit * Auth/Cert (Routine) Specialty Diagnoses / Procedures Referred By Contac t Referred To Contact Diagnoses Symptomatic severe aortic stenosis with low ejection fraction NSTEMI, CHF Haris Chua MD [facility] [place] [address] [facility] Referral ID Status Reason Start Date Expiration Date Visits Re quested Visits Authorized [id number] 1 1 Encounter Details Date Type Department Care Team (Late st Contact Info) Description 05/12/2023 7:35 AM EDT Anesthesia [place] [address] Lynda Mcgowan MD [facility] [place] [address] Alie Park MD [facility] [place] [address] Anesthesia Record Procedure Summary Procedure Name Responsible [...] cephalic vein (lateral side of arm), left; saot-wgi-qnvgzv catheter system; Anatomical Landmarks; US Not Used; [...] RN LDA Cath/EP Sheath 05/12/23; 0733; 14 [place] (Fr); Right; Femoral; Arterial 05/12/23 0733 by Guerda Bender, RN 05/12/23 0830 by Guerda Bender RN LDA Cath/EP Sheath 05/12/23; 0734; 6 [place] (Fr); Right; Femoral; Venous 05/12/23 0734 by Guerda Bender RN 05/12/23 0817 by Guerda Bender RN LDA Cath/EP Sheath 05/12/23; 0734; 7 [place] (Fr); Left; Femoral; Arterial 05/12/23 0734 by Guerda Bender, RN 05/12/23 0837 by Guerda Bender RN LDA Cath/EP Sheath 05/12/23; 0734; 6 [place] (Fr); Left; Femoral; Venous 05/12/23 0734 by [...] Procedure Summary Date: 05/12/23 Room / Location: CRM BUSINESS ANALYST / [facility] Anesthesia Start: 734 Anesthesia [...] All Anesthesia Providers: Anesthesiologist: Lynda Mcgowan MD Tool Engineer: Nico Graham MD Vitals Value Taken Time [...] 05/08/2023 ??? Mild coronary artery disease by [facility] 11/09/2022 05/08/2023 ??? Heart failure with [...] IMG S&I N/A 11/09/2022 CORONARY ANGIOGRAPHY; W [facility],POSSIBLE PCI (WRVU 5.6) performed by Nitesh Escobedo MD at [facility] ??? PRO AORTOPLAS FOR SUPRAVALV STEN N/A 09/21/2016 @AORTOPLASTY FOR SUPRAVALVULAR STENOSIS (WRVU 29.33) performed by Alirio Esparza MD at [facility] MAIN OR ??? PRO REPLACEMENT PROSTHETIC AORTIC VALVE OPEN W CARDIOPULMONARY BYPASS HOMOGRF/STENT N/A 09/21/2016 @REPLACE AORTIC VALVE, OPEN, W\CPB, W\PROSTHETIC VALVE (WRVU 41.32) performed by Alirio Esparza MD at [facility] MA[facility] OR Social History Tobacco Use [...] 3 general, with a(n) intravenous induction Add-on hbdlp-sx-tjdvs TAVR. In cardiogenic shock. Has arterial line, [...] 4:15 PM EDT Office Visit Dermatology at [place] [address] [place] [phone] Marek Bonilla MD [address], [place] [address] documented as of this encounter Visit Diagnoses [...] mL/hr documented in this encounter Care Teams Lime Plant Operator Relationship Specialty Start Date End Date Magdalena Acosta MD [address] [place] [address] PCP - General Family Medicine 02/05/23 documented as of this encounter
--- OUTSIDE RECORDS SUMMARY | 2024-03-23 14:00 | XMS_ITS | Encounter Summary ---
Author Organization [facility] Address [facility] [place] [address] Care Team Providers Care Certification And Selection Specialist Name Role Phone Magdalena Acosta MD Primary Care Provider [phone] Reason for Referral * Diagnostic Test (Routine) - Closed Specialty Diagnoses / Procedures Referred By Contac t Referred To Contact Cardiology Diagnoses S/P TAVR (transcatheter aortic valve replacement) Procedures Echocardiogram Transthoracic Vinod Juárez PA [facility] [place] [address] [facility] [place] [address] Referral ID Status Reason Start Date Expiration Date V isits Requested Visits Authorized [id number] Closed Specialty Service Requested 05/22/2023 05/21/2024 1 1 * Home Health Care (Routine) - Closed Specialty Diagnoses / Procedures Referred By Contac t Referred To Contact Diagnoses S/P TAVR (transcatheter aortic valve replacement) Alirio Hudson MD [facility] CARDIOTHORACIC SURGERY [address] [facility] & [address] [place] [address] Referral ID Status Reason Start Date Expiration Date V isits Requested Visits Authorized [id number] Closed Consult, Test & Treat 05/22/2023 11/18/2023 999 999 * Consultation (Routine) - Closed Specialty Diagnoses / Procedures Referred By Crispin maxwell Referred To Contact Cardiology Diagnoses S/P TAVR (transcatheter aortic valve replacement) Alirio Hudson MD [facility] [place] [address] Cardiac Rehab, [address] [place] [address] Referral ID Status Reason Start Date Expiration Date V isits Requested Visits Authorized [id number] Closed Consult, Test & Treat 05/22/2023 11/18/2023 36 36 * Diagnostic Test (Routine) - Closed Specialty Diagnoses / Procedures Referred By Crispin maxwell Referred To Contact Cardiology Diagnoses Aortic valve stenosis, etiology of cardiac valve disease unspecified Procedures Echocardiogram Transthoracic Transesophageal Echocardiogram (YUSRA) Radha Hollins MD [facility] [place] [address] [facility] [place] [address] Referral ID Status Reason Start Date Expiration Date V isits Requested Visits Authorized [id number] Closed Specialty Service Requested 05/11/2023 05/10/2024 1 1 Reason for Visit * Auth/Cert (Routine) Specialty Diagnoses / Procedures Referred By Crispin maxwell Referred To Contact Diagnoses Symptomatic severe aortic stenosis with low ejection fraction NSTEMI, CHF Enrique Chua MD [facility] [address] [facility] Referral ID Status Reason Start Date Expiration Date Visits Re quested Visits Authorized [id number] 1 1 Encounter Details Date Type Department Care Team (Latest Contact Info) Description 05/08/2023 9:14 AM EDT - 05/22/2023 10:46 AM EDT Hospital Encounter Heart and Vascular Unit Level 4 [place] [address] Enrique Chua MD [facility] [place] [address] Juan Luis Gonzalez MD [facility] [place] [address] Radha Hollins MD [facility] [place] [address] Alirio Hudson MD S/P TAVR (transcatheter aortic valve replacement) (Primary Dx); Aortic valve stenosis, etiology of cardiac valve disease unspecified; Symptomatic severe aortic stenosis with low ejection fraction; Heart failure with reduced ejection fraction due to heart valve disease; Mild coronary artery disease by [facility] 11/09/2022; Mixed connective tissue disease; Neck pain; [...] Patient Age: 67 y.o. Birthdate: 1955 Language: Arabic Race: White Ethnicity: Not nor Admit Date: 05/08/2023 Discharge Date: 05/22/2023 Attending Physician: Alirio Hudson MD Follow-up Recommendations for Providers: Please continue routine management of cardiovascular risk factors including blood pressure, lipids,glucose, etc. Please note any medication changes. Patient to follow up with PCP, Magdalena Acosta MD, or Primary Real Estate Economist, Avis Mejia MD, in ~ 7-10 days. Patient to follow up with Duplicating Machine Servicer, Dr. Antelmo Sharma, in 2 weeks with an EKG, Echo, CBC, and CMP. Patient to follow up with Nephrology, their office to arrange. Xvus-Rkwrkv-na interval: After initial 30 day follow-up appointment , all TAVR patients will follow-up again in one year with an echo. 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 Secondary Diagnoses: Active Hospital Problems Diagnosis S/P TAVR (transcatheter aortic valve replacement) Cardiogenic shock Symptomatic severe aortic stenosis with low ejection fraction Mild coronary artery disease by [facility] 11/09/2022 Heart failure with reduced ejection fraction [...] Tube Placement Right 05/18/2023 Laure Ricks PA [facility] INTERVENTIONL RAD PRG CATH PLMT LEFT HEART CATH & ARTS W/INJ & ANGIO IMG S&I N/A 11/09/2022 CORONARY ANGIOGRAPHY; W [facility],POSSIBLE PCI (WRVU 5.6) performed by Mario Alberto Esocbedo MD at [facility] CATH LABS PRG COMBINED RIGHT & LEFT HEART CATH W/INJ L VENTRICULOGRAPHY, IMG S&I N/A 05/12/2023 COMBINED RIGHT & LEFT HEART CATH,INC INJ FOR L VENTRICULOGRAPHY (WRVU 5.99) performed by Antelmo Sharma MD at [facility] CATH LABS PRO AORTOPLAS FOR SUPRAVALV STEN N/A 09/21/2016 @AORTOPLASTY FOR SUPRAVALVULAR STENOSIS (WRVU 29.33) performed by Alirio Hudson MD at [facility] MAIN OR PRO REPLACE AORTIC VALVE (TAVR/FEDERICO)PERC FEMORAL ARTERY APPROACH 05/12/2023 @TRANSCATHETER AORTIC VALVE REPLACEMENT (TAVR), PERCUTANEOUS FEMORAL (WRVU 22.47) performed by Alirio Hudson MD at [facility] CATH LABS PRO REPLACEMENT PROSTHETIC AORTIC VALVE OPEN W CARDIOPULMONARY BYPASS HOMOGRF/STENT N/A 09/21/2016 @REPLACE AORTIC VALVE, OPEN, W\CPB, W\PROSTHETIC VALVE (WRVU 41.32) performed by Alirio Hudson MD at [facility] MAIN OR Prior To Admission [...] Major Procedures/Operations: 05/12/23: Successful right transfemoral TAVR Wyybi-wo-Gmatr with a 23 mm Lai 3 THV. Left coronary protection with left main MINNA. Hospital Course: #Severe prosthetic s/p valve in valve TF TAVR #Low coronary heights s/p left main stent for coronary protection #Type 2 NSTEMI, present on arrival, resolved #Acute decompensated HFrEF #Cardiogenic shock #EVANS / Cardiorenal syndrome Purnima Thacker was admitted to [facility] on 05/08/2023 via the Cardiology Service [...] TAVR and she was brought to the production laborer the following morning where Drs. Alirio [...] if you have questions. Please call your Duplicating Machine Servicer's office if you have any discharge or drainage from your procedural sites. Your Duplicating Machine Servicer, Dr. Antelmo Sharma and/or the Lawn Care Professional may be reached at . Antibiotic prophylaxis: You will need to take antibiotics prior to many invasive tests and treatments, such as dental cleaning, which should be done every 6 months. Your primary care physician or your dentist can prescribe this medication. Please refer to the card with the [place] [employer] Guidelines for more information. You have been provided with a copy of this card. Please refer to the [place] [employer] Guidelines for more information. Good [...] friends, go to a movie, go to taoism, etc. Heavy activities: No hunting, skiing, jogging, [...] should resume a low fat, low cholesterol, [place] [employer] Diet Driving: No restrictions. Shower/Bath: You may shower daily. No baths, soaking, or swimming for the first week. Wound care: Wash the sites daily with soap and rinse well, pat dry. Assess for any signs of infection such as increased redness, pain, warmth or drainage. Please call your chuck wagon cook's office if you have any discharge or drainage from your procedural sites. If there is a lot of swelling, apply mamta wraps during the day and remove at bedtime. Elevate your legs when you are sitting. Home oxygen therapy: N/A Follow up appointments: Please schedule a follow-up appointment with your PCP, Magdalena Acosta MD, or Primary Real Estate Economist in ~ 7-10 days. You have a follow-up appointment with your Duplicating Machine Servicer, Dr. Antelmo Sharma, in 2 weeks with an EKG, Echo, and labs prior to your appointment. You will need follow-up with Nephrology, their office will arrange. Mdaj-Lddrop-ab interval: After initial 30 day follow-up appointment , all TAVR patients will follow-up again in one year with an echo. Cardiac Rehabilitation: Purnima Thacker was seen today regarding participation in the outpatient Phase 2 Cardiac Rehabilitation at [facility]. The patient agrees to a referral to this program. The referral will be sent at discharge and the patient should be contacted by the Program within 1- 2 weeks from discharge. Future Appointments and Orders Future Appointments and Orders Future Appointments Provider Department Dept Phone 07/29/2023 11:00 AM Magdalena Peralta MD [place]ology at [facility] Arrive at: [facility] [address] [phone] 02/11/2024 2:00 PM Marek Bonilla MD Dermatology at [place] Arrive at: [facility] [address] [phone] Future Orders Complete By Expires Type and Screen Future Surgery, [facility] SAME DAY PROGRAM ONLY) [ITW6194 Custom] 05/11/2023 Process Instructions: This test is intended ONLY for patients with upcoming surgery for testing prior to the day of surgery obtained through the same day program (4V or SDP). For ALL OTHER PATIENTS, order a Type and Screen ([id number]) This order includes the physician order for an ABO Recheck if requested by the Blood Bank. Scheduling Instructions: Comments: Questions: Date of surgery: CBC (with Diff) [TGL858 Custom] 06/05/2023 12/05/2023 Process Instructions: INCLUDES: WBC, RBC, Hgb, Hct, Platelets, RBC Indices and Differential Scheduling Instructions: Comments: Questions: Comprehensive metabolic panel (non-fasting) [LAB17 Custom] 06/05/2023 08/20/2023 Process Instructions: INCLUDES: Calcium, T Protein, Albumin, AST, ALT, Alk Phos, T Bili, BUN, Creat, GFR, Glucose, Lytes. Scheduling Instructions: Comments: Questions: Echocardiogram Transthoracic [00012 CPT(R)] 06/05/2023 12/05/2023 Process Instructions: Scheduling Instructions: Questions: Where will study be performed?: [facility] Clinics Does the patient have Congenital Heart Disease?: Does patient require sedation?: GA rationale: EKG 12 Lead [54809 CPT(R)] 06/05/2023 12/05/2023 Process Instructions: Scheduling Instructions: Questions: Which location will this be performed?: [place] Is a rhythm strip needed?: No [facility] [EQ161 Custom] As directed Process Instructions: Scheduling Instructions: Questions: Device Needed: WALKER (E0143) Patient Height (cm): 154.9 cm (5' 0.98) Patient Weight: 75.4 kg (166 lb 3.2 oz) Diagnosis: Unsteady gait when walking Referral to Cardiac Rehab [EJS254 Custom] As directed Process Instructions: If no progress note charted, please enter Clinical details in comments. Scheduling Instructions: Questions: My question or request is: s/p TAVR. Cardiac rehab at [facility]. Referral to Home Health [REF34 Custom] As directed Process Instructions: If no progress note charted, please enter Clinical details in comments. Scheduling Instructions: Comments: DOCUMENTATION FOR VNA SERVICES PATIENT'S LOCATION: Purnima Thacker [address] [place] [phone] (home) Competitive Intelligence Analyst's Name: Self and brother Raymond In discussion with the attending physician, it is certified that this patient is under his/her careand that MD, or an PIG CASTER, CONVERTIBLE POWER SHOVEL OPERATOR, or PA who is working directly with him/her, had a ioeu-mz-nrgm encounter that meets the physician rsgr-ve-wyxa encounter requirements with this patient on 05/22/2023. [...] for managing ADLs. HOME HEALTH CARE AGENCY: [facility]. [address] [place] [address] PHONE: [phone] FAX: [phone] Start of care: Ideally 24-48 hours after [...] Magdalena Acosta MD [address] / [facility] [address] All VNA agencies which cover the area of patient's residence have been reviewed, either verbally joao writing, and patient has chosen the home health care agency noted. Questions: Disciplines Requested: Physical Therapy Occupational Therapy Discharge References/Attachments None Arrangements for VNA/home care: As above. (delete if no VNA) Signed: EKATERINA NAVARRETE [facility] Section of Cardiac Surgery Date: 05/22/2023 CC: Magdalena Acosta MD [place] SummitMario Alberto MD [address] [place] [address] documented in this encounter Discharge Instructions * Patient Instructions* Vinod Juárez PA - 05/22/2023 9:32 AM EDT TAVR Discharge Instructions: Call your doctor if: You have a fever of greater than 101 degrees, shaking chills, if you develop redness or drainage from your procedure sites, or if you have questions. Please call your Duplicating Machine Servicer's office if you have any discharge or drainage from your procedural sites. Your Duplicating Machine Servicer, Dr. Antelmo Sharma and/or the Lawn Care Professional may be reached at . Antibiotic prophylaxis: You will need to take antibiotics prior to many invasive tests and treatments, such as dental cleaning, which should be done every 6 months. Your primary care physician or your dentist can prescribe this medication. Please refer to the card with the [place] [employer] Guidelines for more information. You have been provided with a copy of this card. Please refer to the [place] [employer] Guidelines for more information. Good [...] friends, go to a movie, go to taoism, etc. Heavy activities: No hunting, skiing, jogging, [...] should resume a low fat, low cholesterol, [place] [employer] Diet Driving: No restrictions. Shower/Bath: You may shower daily. No baths, soaking, or swimming for the first week. Wound care: Wash the sites daily with soap and rinse well, pat dry. Assess for any signs of infection such as increased redness, pain, warmth or drainage. Please call your chuck wagon cook's office if you have any discharge or drainage from your procedural sites. If there is a lot of swelling, apply mamta wraps during the day and remove at bedtime. Elevate your legs when you are sitting. Home oxygen therapy: N/A Follow up appointments: Please schedule a follow-up appointment with your PCP, Magdalena Acosta MD, or Primary Real Estate Economist in ~ 7-10 days. You have a follow-up appointment with your Duplicating Machine Servicer, Dr. Antelmo Sharma, in 2 weeks with an EKG, Echo, and labs prior to your appointment. You will need follow-up with Nephrology, their office will arrange. Bkar-Ziiqoc-jp interval: After initial 30 day follow-up appointment , all TAVR patients will follow-up again in one year with an echo. Cardiac Rehabilitation: Purnima Thacker was seen today regarding participation in the outpatient Phase 2 Cardiac Rehabilitation at [facility]. The patient agrees to a [...] ins ( tef) Haven Ba, PT Pager: [phone] Physical Therapy Inpatient Rehabilitation Department * Nico [...] 0600 and on the weekends please page [phone]. * Jory Paniagua - 05/20/2023 3:52 PM [...] vomiting Last Bowel Movement: 05/20/23 Jory Paniagua Airport Shuttle Driver * Rashid Tong, OT - 05/20/2023 3:16 [...] Tube Placement Right 05/18/2023 Laure Ricks PA [facility] INTERVENTIONL RAD PRG CATH PLMT LEFT HEART CATH & ARTS W/INJ & ANGIO IMG S&I N/A 11/09/2022 CORONARY ANGIOGRAPHY; W [facility],POSSIBLE PCI (WRVU 5.6) performed by Mario Alberto Escobedo MD at [facility] CATH LABS PRG COMBINED RIGHT & LEFT HEART CATH W/INJ L VENTRICULOGRAPHY, IMG S&I N/A 05/12/2023 COMBINED RIGHT & LEFT HEART CATH,INC INJ FOR L VENTRICULOGRAPHY (WRVU 5.99) performed by Antelmo Sharma MD at [facility] CATH LABS PRO AORTOPLAS FOR SUPRAVALV STEN N/A 09/21/2016 @AORTOPLASTY FOR SUPRAVALVULAR STENOSIS (WRVU 29.33) performed by Alirio [place] MD at [facility] MAIN OR PRO REPLACE AORTIC VALVE (TAVR/FEDERICO)PERC FEMORAL ARTERY APPROACH 05/12/2023 @TRANSCATHETER AORTIC VALVE REPLACEMENT (TAVR), PERCUTANEOUS FEMORAL (WRVU 22.47) performed by Alirio [place] MD at [facility] CATH LABS PRO REPLACEMENT PROSTHETIC AORTIC VALVE OPEN W CARDIOPULMONARY BYPASS HOMOGRF/STENT N/A 09/21/2016 @REPLACE AORTIC VALVE, OPEN, W\CPB, W\PROSTHETIC VALVE (WRVU 41.32) performed by Alirio [place] MD at [facility] MAIN OR Social History: Patient lives alone. Home Setup: Pt lives on one level with tub shower and three steps to enter. DME: none used LOADER MACHINE Baseline ADL/Mobility: Independent with ADLs and IADLs. [...] awareness: WFL Vision & Perception: corrective lenses seed expert Communication: WFL Range of motion, strength, [...] Discharge planning. Total Minutes, Occupational Therapy: 28 ([id number]) OT Evaluation Code Rationale: Diagnosis & Pertinent Co-Morbidities affecting Plan of Care: see PMHx Occupational Profile & Client History: Brief Expanded Extensive x Assessment of Occupational Performance: 1-3 performance deficits 3-5 performance deficits x 5 + performance deficits Clinical Decision Making: Low Moderate High x Clinical decision making of moderate complexity using standardized patient assessment instrument and measurable assessment of functional outcome. Pager: [phone] TONG MIKE OT 05/20/2023 Occupational Therapy Rehabilitation [...] 0600 and on the weekends please page [phone]. * Rylie Rodriguez MD - 05/19/2023 3:59 [...] and plan. Cynthia Blackburn MD Nephrology Pager: [phone] * Diana Espino - 05/19/2023 1:49 PM EDT Director Marketing Communications Encounter Note Patient Name: Purnima Thacker : [id number] MR#: [id number] Admit Date: 05/08/2023 9:14 AM Hospital Day [...] as stated. Total Minutes, Physical Therapy: 38 ([id number]) Henrik Dale CANDY Navarrete Pager: [phone] Physical Therapy Inpatient Rehabilitation Department * Nico [...] 0600 and on the weekends please page [phone]. * Laure Ricks PA - 05/19/2023 7:56 [...] Ricks PA-C Interventional Radiology IR Team Pager [phone] * Consuelo Espinoza RN - 05/18/2023 4:13 PM EDT ANGIO NURSING DATABASE Name: Purnima Thacker Date of : 1955 AGE: 67 y.o. Address: [address] [place] [phone] (home) Mobile: No relevant phone numbers on [...] fraction I35.0 Mild coronary artery disease by [facility] 11/09/2022 I25.10 Heart failure with reduced ejection [...] and plan. Cynthia Blackburn MD Nephrology Pager: [phone] * Magdalena Puri, ANURAG - 05/18/2023 10:51 AM EDT Images from the original note were not included. [facility] [address] [place], [place] [address] STRUCTURAL HEART DISEASE CONSULTATION NOTE PRIMARY CARE [...] stenosis. She is now status post TAVR Jqnam-pn-Wwhjs with a 23 mm Lai 3 THV 05/12/[address] Sharma. Preliminary findings: Successful right transfemoral TAVR Jtqer-xo-Aqkln with a 23 mm Lai 3 THV. [...] perforation. Interval Events: - 05/12 Transferred to [facility] post- TAVR for pressor/inotropic support (Levo, [...] ejection fraction Mild coronary artery disease by [facility] 11/09/2022 Heart failure with reduced ejection fraction [...] mg 81 mg Oral Daily Mara Serrano INSTRUCTOR PRODUCT INSPECTION 81 mg at 05/18/23 0826 ondansetron (pf) [...] stenosis. She is now status post TAVR Jrzec-ie-Wkvyq with a 23 mm Lai 3 THV [...] Magdalena Puri APRN Structural Heart Team Pager [phone] Team Office Please see addendum by Dr. Sharma for final plan and recommendations Associated attestation - Antelmo Sharma MD - 05/19/2023 10:52 PM EDT I have reviewed Magdalena Puri APRN's above history and I agree with the details as written. The assessment and plan were formulated in discussion with me and I agree with them as documented. Antelmo Sharma MD Pager [phone] * Nico Palacios PA - 05/18/2023 8:13 [...] 0600 and on the weekends please page [phone]. * Loli Hernandez, PT - 05/17/2023 5:27 [...] plan as stated. Time IN / OUT: 4867-3737 Total Minutes, Physical Therapy: 54 Billing Code: te-sx2, te-f, gait LOLI HERNANDEZ PT Pager: [phone] Physical Therapy Inpatient Rehabilitation Department * Cynthia [...] Well controlled. Cynthia Blackburn MD Nephrology Pager: [phone] * Mara Serrano, INSTRUCTOR PRODUCT INSPECTION - 05/17/2023 8:26 AM EDT Cardiac Surgery [...] 0600 and on the weekends please page [phone]. * Guerda Del Valle - 05/16/2023 10:44 AM EDT Nutrition Services Note - Low Nutrition Acuity Purnima Thacker is a 67 y.o. female Reason for intervention: hospital day 9 Nutrition Plan: Continue diet order Encourage good PO Lasix and Zofran noted Added special serve: open containers Monitor weight Patient scheduled for a hospital day 9 nutrition evaluation. Principal Strategist met with pt at bedside. Pt reports that her appetite and PO has much improved since admission. Denies nausea/vomiting or trouble chewing/swallowing. Principal Strategist provided snack list but pt not interested in adding snacks at this time. Her only concern was that she is worried that she will eat too much which will cause too much pressure in her stomach. Principal Strategist assured pt and suggested eating smaller but [...] Last Bowel Movement: 05/10/23 Guerda Del Valle Airport Shuttle Driver * Vinod Juárez PA - 05/16/2023 10:19 [...] 0600 and on the weekends please page [phone]. * Michael Jeffers MD - 05/16/2023 8:11 AM EDT Images from the original note were not included. Hypertension-Nephrology Inpatient Follow-up Purnima Thacker [id number] 1955 ID: 67 y.o. old female seen [...] IRONSAT 12 (L) 05/16/2023 SFOLATE >20.0 07/03/2022 [id number] 07/03/2022 Lab Results Component Value Date [...] Dr. Ayoub. Please contact me at phone: [phone] or pager: [phone] with any questions. Michael Jeffers MD Nephrology [...] -Nephrology consulted, labs and renal US ordered -[place] removed, ambulated around the unit -bilateral pleural [...] 0600 and on the weekends please page [phone]. * Hortencia Cody MD - 05/15/2023 2:07 PM EDT Critical Care Medicine Staff Progress Note 67 y.o. female with h/o SAVR 09/2016 (bovine pericardial 25 mm), HFrEF, HTN, DLP, NICOALS, mixed connective tissues disease, now s/p valve [...] not included. Hypertension-Nephrology Inpatient Follow-up Purnima Thacker [id number] 1955 ID: 67 y.o. old female seen [...] HGB 7.8 (L) 05/13/2023 SFOLATE >20.0 07/03/2022 [id number] 07/03/2022 Lab Results Component Value Date [...] Dr. Ayoub. Please contact me at phone: [phone] or pager: [phone] with any questions. Michael Jeffers MD Nephrology [...] outlined inthis evaluation. HAVEN BA, PT Pager: [phone] Physical Therapy Inpatient Rehabilitation Department Time IN / OUT: 9701-2915 Total time: Total Minutes, Physical Therapy: 30 [...] 0600 and on the weekends please page [phone]. * Antelmo Sharma MD - 05/14/2023 7:56 AM EDT Images from the original note were not included. [facility] [place] [phone] STRUCTURAL HEART DISEASE CONSULTATION NOTE PRIMARY CARE [...] stenosis. She is now status post TAVR Wozid-hv-Ldsvf with a 23 mm Lai 3 THV 05/12/[address] Sharma. Preliminary findings: Successful right transfemoral TAVR Ierns-bo-Wuzbl with a 23 mm Lai 3 THV. [...] ejection fraction Mild coronary artery disease by [facility] 11/09/2022 Heart failure with reduced ejection fraction [...] stenosis. She is now status post TAVR Szkoh-bu-Zauel with a 23 mm Lai 3 THV 05/12/[address] Sharma. Janet TAVR case notable for coronary LAD protective MINNA. Status post TAVR, the patient was transferred to [facility] for pressor and inotropic support. Pressors weaned overnight 05/12. Cardiac indices by thermodilution remained >3 with continued Milrinone 0.125 mcg/kg/min prior to PAC removal. EKG todayNSR with stable AR/QRS intervals. Hemoglobin slowly down-trending (8.2-> 7.8-> 7.2). [...] Dale ANURAG Kaplan Structural Heart Team Pager [phone] Team Office Please see addendum by Dr. [...] exposure. Nephrology consultationtoday. Antelmo Sharma MD Pager [phone] * Antelmo Cardenas RN - 05/14/2023 5:18 AM EDT Pt AOx4, complaining of mild/moderate generalized pain (states her Meloxicam is effective at home) currently refusing prn oxycodone. NAEON, hemodynamically stable on Milrinone, Maps >65, ST in ort420's down to NSR with frequent multifocal PVC's. [...] included. Formerly [facility] [place] [address] [address] STRUCTURAL HEART DISEASE PROGRESS NOTE PRIMARY CARE PROVIDER: Magdaelna Acosta MD REFERRING PROVIDER: Mario Alberto Chin [...] stenosis. She is now status post TAVR Bspbu-yi-Cxwin with a 23 mm Lai 3 THV 05/12/[address] Sharma. Preliminary findings: Successful right transfemoral TAVR Xsyam-tj-Cpncs with a 23 mm Lai 3 THV. [...] or perforation. Interval Events: - Transferred to [facility] post- TAVR for pressor/inotropic support (Levo, [...] ejection fraction Mild coronary artery disease by [facility] 11/09/2022 Heart failure with reduced ejection fraction [...] 300 mg 300 mg Rectal Daily Lorri Chinchlila PA ondansetron (pf) (Zofran) (2 mg/mL) injection [...] stenosis. She is now status post TAVR Umfwq-pg-Csvfo with a 23 mm Lai 3 THV 05/12/[address] Sharma. Janet TAVR case notable for coronary LAD protective MINNA. Status post TAVR, the patient was transferred to [facility] for pressor and inotropic support. Pressors weaned overnight. Cardiac indices by thermodilution remain greater than 3 with continued Milrinone 0.125 mcg/kg/min. EKG today NSR with stable AR/QRS intervals. Hemoglobin 7.8 [...] Brody Kaplan APRN Structural Heart Team Pager [phone] Team Office Please see addendum by Dr. [...] DAPT moving forward. Antelmo Sharma MD Pager [phone] * Bonita Miguel PA - 05/13/2023 8:30 AM EDT Cardiac Surgery Progress Note Purnima Thacker is a 67 y.o. 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 PMH of s/p tissue AVR (2017), mixed connective tissue disease HTN, HLD, NICOLAS, diverticulosis, rosacea, essential tremor, and depression. 24h Events: From production laborer for above procedure Extubated at ~1600 [...] soft b/l, no evidence of hematoma. Tubes/Lines/Drains: [place], RIJ, A-line, Art, PIV Assessment/Plan: 67 y.o. [...] 0600 and on the weekends please page [phone]. * Onelia Schwartz MD - 05/12/2023 1:44 [...] ejection fraction Mild coronary artery disease by [facility] 11/09/2022 Heart failure with reduced ejection fraction [...] FiO2 weaned to 40%. 1105: ABG 7.34/42/73/22 [id number]: SBT performed and passed on these settings [...] PCP: Magdalena Acosta MD PCP phone number: [phone] Date of Admission: 05/08/2023 ( Hospital Day [...] 1447 PHART -- 7.34* 7.34* -- -- NHE8TCZ -- 30* 30* -- -- PO2ART -- 72* 81* -- -- ENK5AQY -- 16.0* 15.7* -- -- LACTATEVEN 2.4* 2.7* 2.7* 4.8* 2.9* VBG (Venous Blood Gas) Recent Labs 05/12/23 0700 05/12/23 0318 05/12/2310505/11/23193905/11/23 1447 LACTATEVEN 2.4* 2.7* 2.7* 4.8* 2.9* Mixed Venous Sat Recent Labs 05/12/23 0508 05/12/23 0321 05/12/23 0114 05/12/23 0030 T2BTTO9 30.7 32.7 37.3 25.1 Objective: Vitals Last [...] who have questions please contact the health medicare coordinator that requested your imaging first. Cardiac for [...] who have questions please contact the health medicare coordinator that requested your imaging first. Angiogram Abdomen [...] who have questions please contact the health medicare coordinator that requested your imaging first. Chest One [...] who have questions please contact the health medicare coordinator that requested your imaging first. Chest One [...] who have questions please contact the health medicare coordinator that requested your imaging first. Assessment & [...] and inotrope. She is planned for a kzkmz-nl-lhlal TAVR this morning, which should hopefully improve [...] --TAVR and shock management as above Gastrointestinal/Metabolic/Nutrition ANNEI NPO for TAVR this morning Hematology ANNIE [...] of Cardiovascular Medicine [facility] Heel Brushercement mason apprentice [facility] Medicine at [facility] * Noreen Deutsch RN - 05/12/2023 [...] ejection fraction Mild coronary artery disease by [facility] 11/09/2022 Heart failure with reduced ejection fraction [...] 05/11/2023 4:11 PM EDT Reported off to STUDENT TEACHER and pt transferred over in the bed for higher level of care. * Antelmo Sharma MD - 05/11/2023 9:45 AM EDT Images from the original note were not included. [place] [id number] STRUCTURAL HEART DISEASE CONSULTATION NOTE PRIMARY CARE [...] who had been referred for possible TAVR yddww-aa-qqdea evaluation. Her primary symptoms are of dyspnea [...] [facility]. 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 She [...] ejection fraction Mild coronary artery disease by [facility] 11/09/2022 Heart failure with reduced ejection fraction [...] hour(s)) Lactate, whole blood, send to lab ([facility]) Result Value Ref Range Lactate WB 3.1 (H) 0.5 - 2.2 mmol/L Heparin (unfractionated) Level Result Value Ref Range Heparin UFH Level 0.46 IU/mL Lactate, whole blood, send to lab ([facility]) Result Value Ref Range [...] leads Confirmed by MD Harshil, Enrique Bell ([id number]) on 05/10/2023 8:11:46 AM Cardiac Cath 11/09/2022 [...] to decompensating HFrEF, she was transferred to [facility] this afternoon for further management. TAVR CT imaging support for adequate ileofemoral access. Given her acute deterioration today, will planfor RTF TAVR on 05/12/2023. Brody Kaplan ANURAG Structural Heart Disease Pager [phone] Please see addendum by Dr. Sharma for [...] signed and dated. Antelmo Sharma MD Pager [phone] * Harini Lance MD - 05/11/2023 6:06 AM EDT Images from the original note were not included. Cardiology Progress Note Patient info: Name: Purnima Thacker : 1955 PCP: Magdalena Acosta MD PCP phone number: [phone] Date of Admission: 05/08/2023 ( Hospital Day [...] who have questions please contact the health medicare coordinator that requested your imaging first. : 05/08 [...] 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) Mild coronary artery disease by [facility] 11/09/2022 Hyperlipidemia, unspecified NICOLAS (obstructive sleep apnea) [...] PCP: Magdalena Acosta MD PCP phone number: [phone] Date of Admission: 05/08/2023 ( Hospital Day [...] 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) Mild coronary artery disease by [facility] 11/09/2022 Hyperlipidemia, unspecified NICOLAS (obstructive sleep apnea) [...] PCP: Magdalena Acosta MD PCP phone number: [phone] Date of Admission: 05/08/2023 ( Hospital Day [...] Gas) No results found for: PHART, PO2ART, CYA5XWY, RHH5NOV Microbiology: Microbiology Results (Last 30 days) No [...] PPx: Diet: Daily Healthy Menu Choices/Cardiac diet ([facility]) Lines: Peripheral IV Line - Single Lumen [...] 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) Mild coronary artery disease by [facility] 11/09/2022 Hyperlipidemia, unspecified NICOLAS (obstructive sleep apnea) [...] fraction I35.0 Mild coronary artery disease by [facility] 11/09/2022 I25.10 Heart failure with reduced ejection fraction due to heart valve disease I50.20, I38 Cardiogenic shock R57.0 S/P TAVR (transcatheter aortic valve replacement) Z95.2 Past Medical History: Diagnosis Date Anemia Past Surgical History: Procedure Laterality Date PRG CATH PLMT LEFT HEART CATH & ARTS W/INJ & ANGIO IMG S&I N/A 11/09/2022 CORONARY ANGIOGRAPHY; W [facility],POSSIBLE PCI (WRVU 5.6) performed by Mario Alberto Escobedo MD at [facility] CATH LABS PRO AORTOPLAS FOR SUPRAVALV STEN N/A 09/21/2016 @AORTOPLASTY FOR SUPRAVALVULAR STENOSIS (WRVU 29.33) performed by Alirio Hudson MD at [facility] MAIN OR PRO REPLACEMENT PROSTHETIC AORTIC VALVE OPEN W CARDIOPULMONARY BYPASS HOMOGRF/STENT N/A 09/21/2016 @REPLACE AORTIC VALVE, OPEN, W\CPB, W\PROSTHETIC VALVE (WRVU 41.32) performed by Ailrio Hudson MD at [facility] MAIN OR Social History and [...] Verio test strips Strip USE DAILY OneTouch DelOP3Nvoice Plus Lancet 33 gauge Misc USE DAILY [...] fraction I35.0 Mild coronary artery disease by [facility] 11/09/2022 I25.10 Heart failure with reduced ejection fraction due to heart valve disease I50.20, I38 Cardiogenic shock R57.0 S/P TAVR (transcatheter aortic valve replacement) Z95.2 Past Medical History: Diagnosis Date Anemia Past Surgical History: Procedure Laterality Date PRG CATH PLMT LEFT HEART CATH & ARTS W/INJ & ANGIO IMG S&I N/A 11/09/2022 CORONARY ANGIOGRAPHY; W [facility],POSSIBLE PCI (WRVU 5.6) performed by Mario Alberto Escobedo MD at [facility] CATH LABS PRO AORTOPLAS FOR SUPRAVALV STEN N/A 09/21/2016 @AORTOPLASTY FOR SUPRAVALVULAR STENOSIS (WRVU 29.33) performed by Alirio Hudson MD at [facility] MAIN OR PRO REPLACEMENT PROSTHETIC AORTIC VALVE OPEN W CARDIOPULMONARY BYPASS HOMOGRF/STENT N/A 09/21/2016 @REPLACE AORTIC VALVE, OPEN, W\CPB, W\PROSTHETIC VALVE (WRVU 41.32) performed by Alirio Hudson MD at [facility] MAIN OR Social History and [...] days, which prompted her to present to [facility]. She also endorses some intermittent retrosternal chest pain with exertion.She endorses some dizziness with exertion, but has not gotten faint or passed out. At [facility] she was noted to be afebrile, blood pressure 105/64, HR 120s, satting 95% on 2L NC. Labs from [facility] are below, of note she [...] 89/59, which prompted the transfer to us. [facility] labs: CBC - Hgb 10.5 CMP - Cr 1.1 BNP 76003 HsTrop 1358 Lactate 1.6 D-dimer 1183 Interval [...] Code Status: Attempt Cardiopulmonary Resuscitation - Inpatient [facility] Roman Reid MD Internal Medicine PGY-1 Pager [phone], M1-S1 Service Associated attestation - Juan Luis Gonzalez MD - 05/08/2023 10:00 PM EDT Cardiology Attending Addendum Active Hospital Problems Diagnosis Symptomatic severe aortic stenosis with low ejection fraction Heart failure with reduced ejection fraction due to heart valve disease Mild coronary artery disease by [facility] 11/09/2022 Hyperlipidemia, unspecified History of aortic valve [...] PCP: Magdalena Acosta MD PCP phone number: [phone] Date of Admission: 05/08/2023 ( Hospital Day 0 days ) Attending:Enrique Chua MD ID: Purnima Thacker is a 67 y.o. female w/ PMH of s/p bioprosthetic AVR in 2016 with recent concern for severe restenosis, HTN, HLD, mixed connective tissue disease, who presents in transfer from [facility] with worsening BONILLA and weight [...] four days, which promptedher to present to [facility]. She also endorses some intermittent retrosternal chest pain with exertion. She endorses some dizziness with exertion, but has not gotten faint or passed out. At [facility] she was noted to be afebrile, blood pressure 105/64, HR 120s, satting 95% on 2L NC. Labs from [facility] are below, of note she [...] 89/59, which prompted the transfer to us. [facility] labs: CBC - Hgb 10.5 CMP - Cr 1.1 BNP 19865 HsTrop 1358 Lactate 1.6 D-dimer 1183 Vasoactive [...] tissue disease, who [facility] BONILLA and weight gain [...] #Routine Diet: Daily Healthy Menu Choices/Cardiac diet ([facility]Diet) DVT Prophylaxis: heparin gtt GI Prophylaxis: none [...] remains HD stable, can transfer out of [facility]. -Structural Heart consult; will need inpatient TAVR. [...] to the planned procedure. Hand Hygiene: The clarity developer did perform hand hygiene prior to [...] Successful arterial line placement. Crispin Timmons MD Lawn Care Professional Associated attestation - Onelia Schwartz MD - [...] (flow was non-pulsatile) and appearance of blood. [place]-Marily catheter was placed and locked at 55 [...] information for follow-up [facility] H[facility], [place] [facility] [address] [place] [address] Cardiac Rehab, [facility] [address] [address] [facility] [address] [place] [address] Transportation: family or friend will provide *Brother [...] Type: *No Product type* / Secondary Insurance: [employer] [place] Prescription Coverage: Yes This plan was formulated with input from patient, family (please identify family/friend involved ifapplicable) and team. All are in agreement with plan. Aliza Martino MSN-Ed, RN ACM middle school english teacher Office of Care Management Pager #[phone] * Plan of Care - Favian Mckeon [...] Chaudhary RN - 05/21/2023 4:46 PM EDTSummary: [facility] referral OFFICE OF CARE MANAGEMENT [...] Type: *No Product type* / Secondary Insurance: [employer] [place] Last Physical Therapy Recommendation: (Home with assist [...] planning needs. describing our affiliations within the [facility] and educate about their right to choose where referrals are sent. provide a list of Home Health Agencies / Durable Medical Equipment vendors which serve their preferred geographic area. They have requested referrals to: [facility] [address] [place] [address] Ortho Care Located @ [place], [place] Note routed to a Agricultural Equipment Sales Engineer who will communicate referrals to facilities and provide any required information. Transportation: family or friend will provide *Brother Raymond on Tuesday 05/22 at 1000 Barriers to discharge: Does not have home 22/02 assist available until tomorrow Tuesday 05/22 Plan going forward: Discharge home into the 22/02 home care of brother Raymond with [facility] and [facility] PT/OT services on Tuesday 05/22 [...] Attending: All Staff: Staff Role Juanita Almaguer Pumping Station Engineer Laure Ricks PA Physician House Worker Magdalena Rodriguez log cut off sawyer Nurse Consuelo Espinoza, log cut off sawyer Nurse Post-operative diagnosis/Indication: Right pleural effusion Name [...] Type: *No Product type* / Secondary Insurance: [employer] [facility] Last Physical Therapy Recommendation: retirement facility, swing [...] to: discuss discharge planning needs. provide the [facility], Office of Care Management letter from the Professor Of Fine Art pertaining to rehab referrals. provide a letter describing our affiliations within the [facility] and educate about their right to choose where referrals are sent. provide the CMS Star Quality Rating handout. review the different levels of rehab including SNF, swing, and acute. provide a list of facilities within their preferred geographic area. request that they provide at least three choices for referral. They have requested referrals to: [facility] [address] [place] [address] [facility]) [address] [place] [address] (Accepts pts only after exhausting all other local SNF options) [facility] ([facility]) ([facility]) [address] [place] [address] PHONE: [phone] FAX: [phone] [facility] [place] ([facility]) [facility]) [address] [place] [address] PHONE: [phone] FAX: [phone] Note routed to a Agricultural Equipment Sales Engineer who will communicate referrals to facilities and [...] Crenshaw RN - 05/17/2023 10:25 AM EDT [facility] CARDIAC REHABILITATION Purnima Thacker was seen today regarding participation in the outpatient Phase 2 Cardiac Rehabilitation at [facility]. The patient agrees to a [...] from the original note were not included. [facility] NEPHROLOGY/HYPERTENSION CONSULT NOTE PATIENT: Purnima [...] in her course. She ultimately underwent a flrqo-pc-wiabi procedure on and tolerated it well (see [...] 1423 05/12/23 1105 PHART 7.39 7.37 7.34* CFO2EVL 33* 36 42 PO2ART 101 102 73* CUH5MHD 19.5* 20.4 22.1 LACTATEVEN 1.5 1.8 2.8* VAP3ERS 40 40 40 PFRATIOART2 252 255 182 VBG (Venous Blood Gas) Recent Labs 05/12/23 1557 05/12/23 1423 05/12/23 1105 LACTATEVEN 1.5 1.8 2.8* Mixed Venous Sat Recent Labs 05/12/23 1425 05/12/23 0508 05/12/23 0321 [id number] 59.9 30.7 32.7 LFT's: Recent Labs 05/14/23 0110 05/13/23 0115 05/12/23 0600 BILITOT 0.4 0.5 0.9 BILIDIR -- 0.3 -- ALBUMIN 3.6 3.0* 3.5 ALKPHOS 86 85 100 ALT 437* 903* 1,174* AST 319* 792* 1,435* No results found for: UPROTCREAT No results found for: TPROTEINPEP, ALBELECT No results found for: MICROALBUR, BOQS52SMX No results found for: HA1C Lab Results Component Value Date CALCIUM 8.5 05/14/2023 PHOS 4.7 (H) 05/08/2023 No results found for: 25OHVITD MICROBIOLOGY: ProcedureComponentValueUnitsDate/TimeUrine culture [[id number]]Collected: 05/11/231921Lab Status: Final resultSpecimen: Clean Catch UrineUpdated: [...] consulted for assessment if this patient needs SHOE MAKER. Atthis time, we can likely hold off on SHOE MAKER. Her volume status appears sufficient and her metabolic kanwal angements with mild acidosis is not too profound. Patient does not have significant uremic symptoms. We can hold off for today, but the patient is a high risk candidate for needing SHOE MAKER in future daysespecially if her Cr curve trends the direction it is for the next several days. S/p Qowlu-so-Crifz TF TAVR: Management per cardiology. On milrinone gtt. PLAN: - Please obtain following diagnostics: renal US, urinalysis, urine prot/Cr ratio, urine albumin/Cr ratio, CK, uric acid, serum osmol, daily VBGs - No acute indications for SHOE MAKER/dialysis. We will keep close eye on Cr trend, volume status, and metabolics to ensure patient still does not need SHOE MAKER as she ensues intrinsic renal recovery - [...] M.H.A., M.A. PGY-V Nephrology-Hypertension Fellow Page # [phone] [facility] [address] 2nd floor, Ribbon Cleaner [address] [place] [address] * Care Management - Mario Alberto Olmos [...] Type: *No Product type* / Secondary Insurance: [facility] Plan for discharge is: Home w/o [...] for a TAVR at 730. Returned to [facility] at 0945. Was intubated in the production laborer due to agitation. Maintained bedrest for [...] MD 05/16/2023 * Brief Op Note - Aliroi Hudson MD - 05/12/2023 2:07 PM EDT Brief Operative Note Patient Name: Purnima Thacker : [id number] MR#: [id number] Case Date: 05/12/2023 Surgeon: Surgeon(s) and Role: [...] procedure Note: Patient Name: Purnima Thacker : [id number] MR#: [id number] Case Date: 05/12/2023 Operators Surgeon: Surgeon(s) and [...] main with 4.0 x 30 mm Resolute [place] [facility] Eluting Stent Perclose x1 + Angio-seal 8 Fr x1, RFA Manual pressure, LFA Manual pressure, LFV Endotracheal intubation (performed by cardiac anesthesia) Preliminary findings: Successful right transfemoral TAVR Dfwbv-tq-Anggb with a 23 mm Lai 3 THV. [...] MD, M.Sc. Structural Heart Disease Fellow Pager :[phone] Antelmo Sharma MD Pager [phone] * Op Note - Alirio Hudson MD - 05/12/2023 7:37 AM EDT Preop Diagnosis: Severe aortic stenosis, symptomatic. Postop Diagnosis: Same. Procedure: Transfemoral TAVR procedure with 23mm valve. Surgeon: Alirio Hudson M.D. Real Estate Economist: Danny CULP Procedure: The patient was taken to the production laborer. The patient had monitored anesthesia care. 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 [facility] [place] [address] STRUCTURAL HEART DISEASE CONSULTATION NOTE PRIMARY CARE [...] who had been referred for possible TAVR xygsa-qx-osjul evaluation. Her primary symptoms are of dyspnea [...] [facility]. 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 PROBLEM LIST: Patient Active Problem List Diagnosis Symptomatic severe aortic stenosis with low ejection fraction Mild coronary artery disease by [facility] 11/09/2022 Heart failure with reduced ejection fraction [...] hour(s)) Lactate, whole blood, send to lab ([facility]) Result Value Ref Range [...] leads Confirmed by MD Harshil, Enrique Bell ([id number]) on 05/10/2023 8:11:46 AM Assessment and Plan: [...] Antelmo Sharma MD Structural Heart Disease Pager [phone] * Plan of Care - Sarahi Nice RN - 05/10/2023 3:55 AM EDTSumavis: VALDO Note and Care Plan Sarahi Nice RN assumed care of pt at time of their arrival to room 362 from [facility]. Pt voices shortness of breath at [...] Transfer from another hospital Location: admitted from [facility] Reason for Hospitalization: Critical aortic stenosis, causing symptoms Past medical History: Past Medical History: Diagnosis Date Anemia Hospitalizations Within the Past 30 Days: no previous admission in last 30 days Current Decision-Making Capacity: Self If AD's have not been completed the following surrogate would be surrogate decision maker per [place] surrogate decision making law. (Only good for 180 days) Any patient receiving care in [place] must abide by [place] law. The hierarchy for surrogate decision making [...] (i) The agent with financial power of facilities planner or a conservator appointed in accordance with [...] Current DME: none Home Address confirmed as: [address] [place] [id number] Social & Family Supports: All names listed [...] Type: *No Product type* / Secondary Insurance: [facility] [place] ONLY if patient has Medicare A&B - Does this patient have secondary insurance?: Yes ; Prescription Coverage: Yes Preferred Pharmacy: updated to [facility] in [facility] Status: Patient is a : No Primary Care Provider confirmed: Magdalena Acosta MD [phone] Patient/Caregiver Goals of Treatment: Potential Needs for [...] of a 2 story home with 2 [facility]. Patient is independent with ADL's at baseline [...] of care planning. Alie Bradshaw RN, CM Pager-[phone] * Plan of Care - Emily Lucero RN - 05/08/2023 2:54 PM EDT OUTCOME EVALUATION NOTE: OUTCOME SUMMARY: Pt arrived from [facility]. A&O, no c/o pain or [...] 4:15 PM EDT Office Visit Dermatology at [place] [address] [place] [phone] Marek Bonilla MD [address], [place] [address] Scheduled Referrals Name Type Priority Associated Diagnoses [...] Heart Cath W/Inj L Ventriculography, Img S&I ([id number]) 05/12/2023 7:37 AM EDT Aortic valve stenosis, [...] DOPP COLOR DOPP (07/08/2023 12:15 PM EST) [facility] EF 20 HEARTLAB SYSTEM Anatomical Region Laterality Modality Cardiac Other 07/08/2023 10:3 1 AM EST Narrative 07/08/2023 12:26 PM EST [address] [place] [address] ? Echocardiogram Report Name: PURNIMA THACKER ?Study Date: 07/08/2023 10:31 AMBP: 118/60 mmHg ? [facility] 1955 ? Height: 155 cm ? Account: [id number] Age: 67 yrs ? Weight: 74 kg [...] no significant change (post-procedure). Procedure Limited - 25211. Doppler - 82411. Color Doppler - 07472. Satisfactory quality. This study is limited because [...] Note Lee Kincaid MD - 07/08/2023 [address] [place] [address] Echocardiogram Report Name: LASHELL THACKERDARWIN Mejias Study Date: 0:31 AMBP: 118/60 mmHg Patient Location: : 1955 Height: 155 cm Account: [id number] Age: 67 yrs Weight: 74 kg Gender: [...] is nosignificant change (post-procedure). Procedure Limited - 56423. Doppler - 72033. Color Doppler - 20658. Satisfactoryquality. This study is limited because of [...] EST) Glucose 93 65 - 199 mg/dL [facility] Comment:Diabetes: >=200 mg/d L plus symptoms Blood Urea Nitrogen 19(H) 8 - 18 mg/dL [facility] Creatinine 0.81 0.70 - 1.20 mg/dL [facility] Sodium 142 135 - 145 mmol/L [facility] Potassium 3.8 3.5 - 5.0 mmol/L [facility] Comment: Please note: ??Patients with WBC >100,000 may have falsely elevated Potassium levels. ??For accurate Potassium quantification in these patients send serum separator tube (gold top) for subsequent determinations. ??Contact the Clinical Chemistry Laboratory if there are any questions. Chloride 104 98 - 107 mmol/L [facility] Carbon Dioxide 26 22 - 31 mmol/L [facility] Anion Gap 12 5 - 15 mmol/L [facility] Calcium 10.2 8.5 - 10.5 mg/dL [facility] Protein, Total 7.4 6.1 - 8.0 g/dL [facility] Albumin 4.1 3.2 - 5.2 g/dL [facility] Aspartate Aminotransferase 24 0 - 30 unit/L [facility] Alanine Aminotransferase 12 0 - 30 unit/L [facility] Alkaline Phosphatase 93 35 - 105 unit/L [facility] Bilirubin, Total 0.3 0.2 - 1.3 mg/dL [facility] Est Glomerular Filtration Rate 80 >=60 mL/min/1. 73 m?? [facility] Comment: This patient's estimated GFR [...] Lab Alirio Hudson MD CHEMISTRY ORDERABLE S [facility] [place] [address] * (ABNORMAL) Basic Metabolic Panel (non-fasting) (05/22/2023 3:57 AM EDT) Glucose 88 65 - 199 mg/dL [facility] Comment:Diabetes: >=200 mg/d L plus symptoms Blood Urea Nitrogen 21(H) 8 - 18 mg/dL [facility] Creatinine 0.69(L) 0.70 - 1.20 mg/dL [facility] Sodium 136 135 - 145 mmol/L [facility] Potassium 3.6 3.5 - 5.0 mmol/L [facility] Comment: Please note: ??Patients with WBC >100,000 may have falsely elevated Potassium levels. ??For accurate Potassium quantification in these patients send serum separator tube (gold top) for subsequent determinations. ??Contact the Clinical Chemistry Laboratory if there are any questions. Chloride 102 98 - 107 mmol/L [facility] Carbon Dioxide 23 22 - 31 mmol/L [facility] Anion Gap 11 5 - 15 mmol/L [facility] Calcium 8.6 8.5 - 10.5 mg/dL [facility] Est Glomerular Filtration Rate 95 >=60 mL/min/1. 73 m?? [facility] Comment: This patient's estimated GFR [...] Lab Mara Serrano ANURAG CHEMISTRY ORDERABL ES [facility] [place] [address] * (ABNORMAL) Basic Metabolic Panel (non-fasting) (05/21/2023 5:06 AM EDT) Glucose 87 65 - 199 mg/dL [facility] Comment:Diabetes: >=200 mg/d L plus symptoms Blood Urea Nitrogen 25(H) 8 - 18 mg/dL [facility] Creatinine 0.84 0.70 - 1.20 mg/dL [facility] Sodium 136 135 - 145 mmol/L [facility] Potassium 3.6 3.5 - 5.0 mmol/L [facility] Comment: Please note: ??Patients with WBC >100,000 may have falsely elevated Potassium levels. ??For accurate Potassium quantification in these patients send serum separator tube (gold top) for subsequent determinations. ??Contact the Clinical Chemistry Laboratory if there are any questions. Chloride 102 98 - 107 mmol/L [facility] Carbon Dioxide 26 22 - 31 mmol/L [facility] Anion Gap 8 5 - 15 mmol/L [facility] Calcium 8.9 8.5 - 10.5 mg/dL [facility] Est Glomerular Filtration Rate 76 >=60 mL/min/1. 73 m?? [facility] Comment: This patient's estimated GFR [...] Narrative Resulting Agency Comment Spec In Lab [facility] [employer] CHEMISTRY ORDERABL ES Performing Organization Address City/Va Hospital/ZIP Co de Phone Number [facility] [place] [address] * Lavender Tube HOLD (05/20/2023 2:52 AM EDT) Lavender Hold Sample in lab. [facility] Blood Venous Draw / Unknown 05/20/2023 2:52 AM EDT 05/20/2023 3:04 AM EDT [facility] [employer] HEMATOLOGY ORDERAB LES Performing Organization Address City/Va Hospital/ZIP Co de Phone Number [facility] [place] [address] * (ABNORMAL) Basic Metabolic Panel (non-fasting) (05/20/2023 2:52 AM EDT) Glucose 152 65 - 199 mg/dL [facility] Comment:Diabetes: >=200 mg/d L plus symptoms Blood Urea Nitrogen 33(H) 8 - 18 mg/dL [facility] Creatinine 0.82 0.70 - 1.20 mg/dL [facility] Sodium 137 135 - 145 mmol/L [facility] Potassium 3.7 3.5 - 5.0 mmol/L [facility] Comment: Please note: ??Patients with WBC >100,000 may have falsely elevated Potassium levels. ??For accurate Potassium quantification in these patients send serum separator tube (gold top) for subsequent determinations. ??Contact the Clinical Chemistry Laboratory if there are any questions. Chloride 99 98 - 107 mmol/L [facility] Carbon Dioxide 22 22 - 31 mmol/L [facility] Anion Gap 16(H) 5 - 15 mmol/L [facility] Calcium 9.0 8.5 - 10.5 mg/dL [facility] Est Glomerular Filtration Rate 78 >=60 mL/min/1. 73 m?? [facility] Comment: This patient's estimated GFR [...] Agency Comment Spec In Lab Mara [place] [employer] CHEMISTRY ORDERABL ES Performing Organization Address [facility] Co de Phone Number [facility] [place] [address] * (ABNORMAL) Potassium (05/20/2023 2:52 AM EDT) [facility] Potassium 3.4(L) 3.5 - 5.0 mmol/L [facility] Comment: Please note: ??Patients with WBC >100,000 may have falsely elevated Potassium levels. ??For accurate Potassium quantification in these patients send serum separator tube (gold top) for subsequent determinations. ??Contact the Clinical Chemistry Laboratory if there are any questions. Blood 05/20/2023 2:52 AM EDT 05/20/2023 3:03 AM EDT Narrative Resulting Agency Comment Spec In Lab Mara [place] [employer] CHEMISTRY ORDERABL ES Performing Organization Address [facility] de Phone Number [facility] [place] [address] * XR Chest PA & Lateral (Generic) [...] who have questions please contact the health medicare coordinator that requested your imaging first. ? [...] patients who have questions please contactthe health medicare coordinator that requested your imaging first. Alirio Hudson MD IMG DX ORDERABLES * (ABNORMAL) Basic Metabolic Panel (non-fasting) (05/19/2023 5:49 AM EDT) Glucose 93 65 - 199 mg/dL [facility] Comment:Diabetes: >=200 mg/d L plus symptoms Blood Urea Nitrogen 45(H) 8 - 18 mg/dL [facility] Creatinine 1.02 0.70 - 1.20 mg/dL [facility] Sodium 138 135 - 145 mmol/L [facility] Potassium 3.9 3.5 - 5.0 mmol/L [facility] Comment: Please note: ??Patients with WBC >100,000 may have falsely elevated Potassium levels. ??For accurate Potassium quantification in these patients send serum separator tube (gold top) for subsequent determinations. ??Contact the Clinical Chemistry Laboratory if there are any questions. Chloride 102 98 - 107 mmol/L [facility] Carbon Dioxide 26 22 - 31 mmol/L [facility] Anion Gap 10 5 - 15 mmol/L [facility] Calcium 9.7 8.5 - 10.5 mg/dL [facility] Est Glomerular Filtration Rate 60 >=60 mL/min/1. 73 m?? [facility] Comment: This patient's estimated GFR [...] Agency Comment Spec In Lab Mara Serrano [employer] [place] [address] * IR Chest Tube Placement Right (05/18/2023 [...] EDT) Glucose 95 65 - 199 mg/dL [facility] Comment:Diabetes: >=200 mg/d L plus symptoms Blood Urea Nitrogen 71(H) 8 - 18 mg/dL [facility] Comment:result rechecked-JSJ Creatinine 1.64(H) 0.70 - 1.20 mg/dL [facility] Comment:result rechecked-JSJ Sodium 137 135 - 145 mmol/L [facility] Potassium 3.7 3.5 - 5.0 mmol/L [facility] Comment: Please note: ??Patients with WBC >100,000 may have falsely elevated Potassium levels. ??For accurate Potassium quantification in these patients send serum separator tube (gold top) for subsequent determinations. ??Contact the Clinical Chemistry Laboratory if there are any questions. Chloride 100 98 - 107 mmol/L [facility] Carbon Dioxide 24 22 - 31 mmol/L [facility] Anion Gap 13 5 - 15 mmol/L [facility] Calcium 9.7 8.5 - 10.5 mg/dL [facility] Est Glomerular Filtration Rate 34(L) >=60 mL/min/1. 73 m?? [facility] Comment: This patient's estimated GFR [...] Agency Comment Spec In Lab Mara Serrano [employer] CHEMISTRY ORDERABL ES [facility] [place] [address] * XR Chest PA & Lateral (Generic) [...] who have questions please contact the health medicare coordinator that requested your imaging first. ? [...] patients who have questions please contactthe health medicare coordinator that requested your imaging first. Alirio Hudson MD IMG DX ORDERABLES * (ABNORMAL) Comprehensive metabolic panel (non-fasting) (05/17/2023 4:35 AM EDT) Glucose 89 65 - 199 mg/dL [facility] Comment:Diabetes: >=200 mg/d L plus symptoms Blood Urea Nitrogen 97(H) 8 - 18 mg/dL [facility] Creatinine 2.97(H) 0.70 - 1.20 mg/dL [facility] Comment:result rechecked-JSJ Sodium 135 135 - 145 mmol/L [facility] Potassium 4.1 3.5 - 5.0 mmol/L [facility] Comment: Please note: ??Patients with WBC >100,000 may have falsely elevated Potassium levels. ??For accurate Potassium quantification in these patients send serum separator tube (gold top) for subsequent determinations. ??Contact the Clinical Chemistry Laboratory if there are any questions. Chloride 97(L) 98 - 107 mmol/L [facility] Carbon Dioxide 22 22 - 31 mmol/L [facility] Anion Gap 16(H) 5 - 15 mmol/L [facility] Calcium 9.6 8.5 - 10.5 mg/dL [facility] Protein, Total 6.5 6.1 - 8.0 g/dL [facility] Albumin 3.7 3.2 - 5.2 g/dL [facility] Aspartate Aminotransferase 58(H) 0 - 30 unit/L [facility] Alanine Aminotransferase 66(H) 0 - 30 unit/L [facility] Alkaline Phosphatase 86 35 - 105 unit/L [facility] Bilirubin, Total 0.6 0.2 - 1.3 mg/dL [facility] Est Glomerular Filtration Rate 17(L) >=60 mL/min/1. 73 m?? [facility] Comment: This patient's estimated GFR [...] Organization Address City/State/[place] Co de Phone Number [facility] [place] [address] * Potassium (05/16/2023 11:15 PM EDT) Potassium 3.7 3.5 - 5.0 mmol/L [facility] Comment: Please note: ??Patients with [...] MD CHEMISTRY ORDERABLE S Performing Organization Address City/[facility] Hospital/ZIP Co de Phone Number [facility] [place] [address] * Magnesium (05/16/2023 5:22 PM EDT) Magnesium 0.96 0.69 - 1.07 mmol/L [facility] Blood 05/16/2023 5:22 PM EDT 05/16/2023 5:27 PM EDT Narrative Resulting Agency Comment Spec In Lab Alirio Hudson MD CHEMISTRY ORDERABLE S Performing Organization Address [facility] Co de Phone Number [facility] [place] [address] * (ABNORMAL) Basic Metabolic Panel (non-fasting) (05/16/2023 5:22 PM EDT) Glucose 106 65 - 199 mg/dL [facility] Comment:Diabetes: >=200 mg/d L plus symptoms Blood Urea Nitrogen 103(H) 8 - 18 mg/dL [facility] Creatinine 3.91(H) 0.70 - 1.20 mg/dL [facility] Comment:result rechecked-imm Sodium 132(L) 135 - 145 mmol/L [facility] Potassium 3.6 3.5 - 5.0 mmol/L [facility] Comment: Please note: ??Patients with WBC >100,000 may have falsely elevated Potassium levels. ??For accurate Potassium quantification in these patients send serum separator tube (gold top) for subsequent determinations. ??Contact the Clinical Chemistry Laboratory if there are any questions. Chloride 92(L) 98 - 107 mmol/L [facility] Carbon Dioxide 22 22 - 31 mmol/L [facility] Anion Gap 18(H) 5 - 15 mmol/L [facility] Calcium 9.7 8.5 - 10.5 mg/dL [facility] Est Glomerular Filtration Rate 12(L) >=60 mL/min/1. 73 m?? [facility] Comment: This patient's [...] MD CHEMISTRY ORDERABLE S Performing Organization Address [facility] Co de Phone Number [facility] [place] [address] * (ABNORMAL) Potassium (05/16/2023 11:43 AM EDT) Potassium 3.3(L) 3.5 - 5.0 mmol/L [facility] Comment: Please note: ??Patients with [...] MD CHEMISTRY ORDERABLE S Performing Organization Address [facility] Co de Phone Number [facility] [place] [address] * (ABNORMAL) Ferritin (05/16/2023 4:41 AM EDT) Ferritin 1,813(H) 30 - 400 ng/mL [facility] Comment: Pediatric reference ranges not verified at [facility], interpret with caution. Reference ranges for females greater than 50 years of age approach values for men, i.e., 30-400 ng/mL. Blood 05/16/2023 4:41 AM EDT 05/16/2023 4:54 AM EDT Narrative Resulting Agency Comment Spec In Lab Kristopher Ayoub MD CHEMISTRY ORDERABLES Performing Organization Address City/[facility] Hospital/ZIP Co de Phone Number [facility] [place] [address] * (ABNORMAL) PTH (05/16/2023 4:41 AM EDT) Parathyroid Hormone 120(H) 15 - 65 pg/mL [facility] Blood 05/16/2023 4:41 AM EDT 05/16/2023 4:54 AM EDT Narrative Resulting Agency Comment Spec In Lab Kristopher Ayoub MD CHEMISTRY ORDERABLES Performing Organization Address [facility] Co de Phone Number [facility] [place] [address] * Vitamin D, 25-Hydroxy (05/16/2023 4:41 AM EDT) Vitamin D Total 25 OH 33 21 - 100 ng/mL [facility] Vit D Interp Sufficient [facility] Blood 05/16/2023 4:41 AM EDT 05/16/2023 4:54 AM EDT Narrative Resulting Agency Comment Spec In Lab Kristopher Ayoub MD CHEMISTRY ORDERABLES Performing Organization Address City/[facility]/[place] Co de Phone Number [facility] [place] [address] * (ABNORMAL) Blood Gas Venous ([facility]) (05/16/2023 4:22 AM EDT) pH, Venous 7.41 7.32 - 7.42 [facility] PCO2, Venous 32(L) 41 - 51 mmHg [facility] PO2, Venous 73(H) 25 - 40 mmHg [facility] Bicarbonate, Venous 19.6 mmol/L [facility] Base Excess, Venous -5.1 mmol/L [facility] Hgb Blood Gas 9.7(L) 11.7 - 15.5 g/dL [facility] Oxyhemoglobin, Venous 92.8 % [facility] Carboxyhemoglob in, Venous 0.1 % [facility] Comment: Nonsmokers: 0.5-1.5% COHB Smokers: Variable, but usually less than 10% Toxic: 20-30% COHB Lethal: Greater than 60% COHB Methemoglobin, Venous 0.3 <=1.5 % [facility] Na Whole Blood 130(L) 135 - 145 mmol/L [facility] K Whole Blood 3.7 3.5 - 5.0 mmol/L [facility] Comment: Please note: Patients with WBC >100,000 may have falsely elevated Potassium levels. Contact the Clinical Chemistry Laboratory if there are any questions. ICa Whole Blood 1.15 1.15 - 1.33 mmol/L [facility] Comment: Note: ??Total bilirubin higher than 20 mg/dL may lead to falsely low ionized calcium. CL Whole Blood 95(L) 98 - 107 mmol/L [facility] Gluc Whole Bld 82 65 - 199 mg/dL [facility] Comment:Diabetes: >=200 mg/d L plus symptoms Lactate WB 1.1 0.5 - 2.2 mmol/L [facility] Blood Gas Source Venous [facility] Blood Venous Draw / Unknown 05/16/2023 4:22 AM EDT 05/16/2023 4:31 AM EDT Narrative Resulting Agency Comment Spec In Lab Bonita TOBAR CHEMISTRY ORDERABLES [facility] [place] [address] * (ABNORMAL) Differential, Automated (05/16/2023 4:20 AM EDT) Neutrophil % 84.1 % [facility] Neutrophil Absolute 6.22(H) 1.70 - 6.10 x10(3)/mc L [facility] Lymph % 5.8 % [facility] Lymphocytes Abs 0.4(L) 0.9 - 3.2 x10(3)/mc L [facility] Monocyte % 8.8 % [facility] Monocyte Abs 0.6 0.3 - 0.9 x10(3)/mc L [facility] Eos % 0.4 % [facility] Eosinophils Abs 0.0 0.0 - 0.4 x10(3)/mc L [facility] Basophil % 0.0 % [facility] Baso Absolute 0.0 0.0 - 0.1 x10(3)/mc L [facility] Immature Gran % 0.90 % [facility] Comment: Immature granulocytes(IG's)percentage and absolute count will include metamyelocytes, myelocytes, and promyelocytes. Blood smears from CBCs yielding IG's will be scanned manually for concordance. If this scan disagrees with the automated IG or if promyelocytes are noted, a manual differential will be performed. Immature Gran Absolute 0.07(H) 0.00 - 0.04 x10(3)/mc L [facility] Blood 05/16/2023 4:20 AM EDT 05/16/2023 4:29 AM EDT Narrative Resulting Agency Comment Spec In Lab Jamse Agustin MD HEMATOLOGY ORDER JODIE Performing Organization Address City/State/[place] Co de Phone Number [facility] [place] [address] * (ABNORMAL) Hemogram (05/16/2023 4:20 AM EDT) White Blood Cell 7.4 4.0 - 9.5 x10(3)/mc L [facility] Red Blood Cell 2.40(L) 4.00 - 5.21 x10(6)/mc L [facility] Hemoglobin 7.8(L) 11.7 - 15.5 g/dL [facility] Hematocrit 22.5(L) 35.7 - 45.8 % [facility] Mean Cell Volume 93.8 82.6 - 94.4 fL [facility] Mean Cell Hemoglobin 32.5(H) 27.1 - 32.0 pg [facility] Mean Cell Hemoglobin Concentration 34.7 31.7 - 35.0 g/dL [facility] Platelet 120(L) 145 - 357 x10(3)/mc L [facility] RDW Standard Deviation 42.9 37.0 - 46.0 fL [facility] RDW coefficient of variation 12.9 11.5 - 14.1 % [facility] Mean Platelet Volume 11.3 7.6 - 12.9 fL [facility] NRBC% auto 0.7 % [facility] NRBC Absolute 0.050(H) 0.000 - 0.000 x10(3)/mc L [facility] Blood 05/16/2023 4:20 AM EDT 05/16/2023 4:29 AM EDT Narrative Resulting Agency Comment Spec In Lab James Agustin MD HEMATOLOGY ORDER JODIE [facility] [place] [address] * (ABNORMAL) Basic Metabolic Panel (non-fasting) (05/16/2023 4:20 AM EDT) Glucose 89 65 - 199 mg/dL [facility] Comment:Diabetes: >=200 mg/d L plus symptoms Blood Urea Nitrogen 108(H) 8 - 18 mg/dL [facility] Creatinine 4.74(H) 0.70 - 1.20 mg/dL [facility] Comment:result rechecked-OLIVA Sodium 132(L) 135 - 145 mmol/L [facility] Potassium 3.9 3.5 - 5.0 mmol/L [facility] Comment: Please note: ??Patients with WBC >100,000 may have falsely elevated Potassium levels. ??For accurate Potassium quantification in these patients send serum separator tube (gold top) for subsequent determinations. ??Contact the Clinical Chemistry Laboratory if there are any questions. Chloride 95(L) 98 - 107 mmol/L [facility] Carbon Dioxide 18(L) 22 - 31 mmol/L [facility] Anion Gap 19(H) 5 - 15 mmol/L [facility] Calcium 9.2 8.5 - 10.5 mg/dL [facility] Est Glomerular Filtration Rate 10(L) >=60 mL/min/1. 73 m?? [facility] Comment: This patient's estimated GFR [...] MD CHEMISTRY ORDERABLE S Performing Organization Address [facility] Co de Phone Number [facility] [place] [address] * (ABNORMAL) Iron and TIBC (05/16/2023 4:20 AM EDT) Iron 31 30 - 150 mcg/dL [facility] TIBC 259 250 - 450 mcg/dL [facility] Iron Saturation 12(L) 20 - 50 % [facility] Blood 05/16/2023 4:20 AM EDT 05/16/2023 4:29 AM EDT Narrative Resulting Agency Comment Spec In Lab Kristopher Ayoub MD CHEMISTRY ORDERABLES Performing Organization Address [facility] Co de Phone Number [facility] [place] [address] * (ABNORMAL) Basic Metabolic Panel (non-fasting) (05/15/2023 12:50 AM EDT) Glucose 101 65 - 199 mg/dL [facility] Comment:Diabetes: >=200 mg/d L plus symptoms Blood Urea Nitrogen 109(H) 8 - 18 mg/dL [facility] Creatinine 5.62(H) 0.70 - 1.20 mg/dL [facility] Comment:result rechecked-KS Sodium 131(L) 135 - 145 mmol/L [facility] Comment:result rechecked-KS Potassium 3.7 3.5 - 5.0 mmol/L [facility] Comment: result rechecked-KS Please note: ??Patients with WBC >100,000 may have falsely elevated Potassium levels. ??For accurate Potassium quantification in these patients send serum separator tube (gold top) for subsequent determinations. ??Contact the Clinical Chemistry Laboratory if there are any questions. Chloride 92(L) 98 - 107 mmol/L [facility] Comment:result rechecked-KS Carbon Dioxide 18(L) 22 - 31 mmol/L [facility] Comment:result rechecked-KS Anion Gap 21(H) 5 - 15 mmol/L [facility] Calcium 8.9 8.5 - 10.5 mg/dL [facility] Est Glomerular Filtration Rate 8(L) >=60 mL/min/1. 73 m?? [facility] Comment: This patient's estimated GFR [...] Organization Address City/State/[place] Co de Phone Number [facility] [place] [address] * (ABNORMAL) Hemogram (05/15/2023 12:50 AM EDT) White Blood Cell 9.1 4.0 - 9.5 x10(3)/mc L [facility] Red Blood Cell 2.19(L) 4.00 - 5.21 x10(6)/mc L [facility] Hemoglobin 7.2(L) 11.7 - 15.5 g/dL [facility] Hematocrit 20.6(L) 35.7 - 45.8 % [facility] Mean Cell Volume 94.1 82.6 - 94.4 fL [facility] Mean Cell Hemoglobin 32.9(H) 27.1 - 32.0 pg [facility] Mean Cell Hemoglobin Concentration 35.0 31.7 - 35.0 g/dL [facility] Platelet 109(L) 145 - 357 x10(3)/mc L [facility] RDW Standard Deviation 43.6 37.0 - 46.0 fL [facility] RDW coefficient of variation 12.9 11.5 - 14.1 % [facility] Mean Platelet Volume 10.4 7.6 - 12.9 fL [facility] NRBC% auto 2.1 % [facility] NRBC Absolute 0.190(H) 0.000 - 0.000 x10(3)/mc L [facility] Blood 05/15/2023 12:5 0 AM EDT 05/15/2023 12:52 AM EDT Narrative Resulting Agency Comment Spec In Lab Alirio Hudson MD HEMATOLOGY ORDERABL ES Performing Organization Address City/State/[place] Co de Phone Number [facility] [place] [address] * (ABNORMAL) BLOOD GAS 2 VENOUS (05/15/2023 12:49 AM EDT) pH, Venous 7.33 7.32 - 7.42 [facility] PCO2, Venous 37(L) 41 - 51 mmHg [facility] PO2, Venous 34 25 - 40 mmHg [facility] Bicarbonate, Venous 19.1 mmol/L [facility] Base Excess, Venous -6.8 mmol/L [facility] Hgb Blood Gas 10.8(L) 11.7 - 15.5 g/dL [facility] Oxyhemoglobin, Venous 58.1 % [facility] Carboxyhemoglob in, Venous 0.3 % [facility] Comment: Nonsmokers: 0.5-1.5% COHB Smokers: Variable, but usually less than 10% Toxic: 20-30% COHB Lethal: Greater than 60% COHB Methemoglobin, Venous 0.6 <=1.5 % [facility] Na Whole Blood 136 135 - 145 mmol/L [facility] K Whole Blood 3.7 3.5 - 5.0 mmol/L [facility] Comment: Please note: Patients with WBC >100,000 may have falsely elevated Potassium levels. Contact the Clinical Chemistry Laboratory if there are any questions. ICa Whole Blood 1.12(L) 1.15 - 1.33 mmol/L [facility] Comment: Note: ??Total bilirubin higher than 20 mg/dL may lead to falsely low ionized calcium. CL Whole Blood 95(L) 98 - 107 mmol/L [facility] Gluc Whole Bld 101 65 - 199 mg/dL [facility] Comment:Diabetes: >=200 mg/d L plus symptoms Lactate WB 1.3 0.5 - 2.2 mmol/L [facility] Flow, Mike 1.0 LPM [facility] Blood Gas Source Venous [facility] Blood 05/15/2023 12:4 9 AM EDT 05/15/2023 12:49 AM EDT Alirio Hudson MD POINT OF CARE TEST ORDERABLES Performing Organization Address City/State/[place] Co de Phone Number [facility] [place] [address] * US Retroperitoneal Complete (05/14/2023 3:53 PM [...] who have questions, please contact the health medicare coordinator that requested your imaging first. ? Hayden Robledo, Staff Physician Electronically Signed Final Report ?? 05/14/2023 04:39 pm Narrative 05/14/2023 4:39 PM EDT Renal ? (Signed Final 05/14/2023 04:39 pm) PATIENT INFO: ID #: ? [id number] ?: ??55 (67 yrs)(F) Name: ? PURNIMA THACKER ?Visit Date: 05/14/2023 03:44 pm PERFORMED BY: Attending: ?Meena CULP, Hayden Stafford Resident: ? Nell CULP, Anand August Performed By: ? Consuelo Tello RDMS Referred By: ?ALIRIO Powell BECCA Location: ? [place] SERVICE(S) PROVIDED: URETRO - Retroperitoneal Complete - [id number] ? [id number] INDICATIONS: EVANS COMPARISON: CT: Abdomen/Pelvis 05/11/23 RIGHT [...] 05/14/2023 04:39 pm) PATIENT INFO: ID #: [id number] : 55 (67 yrs)(F) Name: PURNIMA THACKER Visit Date: 05/14/2023 03:44 pm PERFORMED BY: Attending: Hayden Robledo MD Resident: Anand Camejo MD Performed By: Consuelo Tello RDMS Referred By: ALIRIO HUDSON Location: [place] SERVICE(S) PROVIDED: URETRO - Retroperitoneal Complete - [id number] INDICATIONS: EVANS COMPARISON: CT: Abdomen/Pelvis 05/11/23 RIGHT [...] who have questions, please contact the health medicare coordinator that requested your imaging first. Hayden Robledo, Staff Physician Electronically Signed Final Report 05/14/2023 04:39 pm Alirio Hudson MD IMG US GEN ORDERABL ES * CK (05/14/2023 3:17 PM EDT) Pathologist [facility] Creatine Kinase 123 0 - 160 unit/L [facility] Blood 05/14/2023 3:17 PM EDT 05/14/2023 3:31 PM EDT Narrative Resulting Agency Comment Spec In Lab Alirio Hudson MD CHEMISTRY ORDERABLE S Performing Organization Address City/Va Hospital/ZIP Co de Phone Number [facility] [place] [address] * (ABNORMAL) Uric acid (05/14/2023 3:17 PM EDT) [facility] Uric Acid 14.9(H) 2.5 - 6.5 mg/dL [facility] Blood 05/14/2023 3:17 PM EDT 05/14/2023 3:31 PM EDT Narrative Resulting Agency Comment Spec In Lab Alirio Hudson MD CHEMISTRY ORDERABLE S Performing Organization Address [facility]/[place] Co de Phone Number [facility] [place] [address] * (ABNORMAL) Osmolality (05/14/2023 3:17 PM EDT) Pathologist [facility] Osmolality 311(H) 275 - 295 mOsm/kg [facility] Blood 05/14/2023 3:17 PM EDT 05/14/2023 3:31 PM EDT Narrative Resulting Agency Comment Spec In Lab Alirio Hudson MD CHEMISTRY ORDERABLE S Performing Organization Address [facility] Co de Phone Number [facility] [place] [address] * (ABNORMAL) Differential, Automated (05/14/2023 1:10 AM EDT) Neutrophil % 87.2 % [facility] Neutrophil Absolute 9.74(H) 1.70 - 6.10 x10(3)/mc L [facility] Lymph % 3.9 % [facility] Lymphocytes Abs 0.4(L) 0.9 - 3.2 x10(3)/mc L [facility] Monocyte % 7.9 % [facility] Monocyte Abs 0.9 0.3 - 0.9 x10(3)/ L [facility] Eos % 0.0 % [facility] Eosinophils Abs 0.0 0.0 - 0.4 x10(3)/ L [facility] Basophil % 0.1 % [facility] Baso Absolute 0.0 0.0 - 0.1 x10(3)/ L [facility] Immature Gran % 0.90 % [facility] Comment: Immature granulocytes(IG's)percentage and absolute count will include metamyelocytes, myelocytes, and promyelocytes. Blood smears from CBCs yielding IG's will be scanned manually for concordance. If this scan disagrees with the automated IG or if promyelocytes are noted, a manual differential will be performed. Immature Gran Absolute 0.10(H) 0.00 - 0.04 x10(3)/ L [facility] Blood 05/14/2023 1:10 AM EDT 05/14/2023 1:24 AM EDT Narrative Resulting Agency Comment Spec In Lab Bonita TOBAR HEMATOLOGY ORDERABLE S Performing Organization Address City/State/[place] Co de Phone Number [facility] [place] [address] * (ABNORMAL) Hemogram (05/14/2023 1:10 AM EDT) White Blood Cell 11.2(H) 4.0 - 9.5 x10(3)/mc L [facility] Red Blood Cell 2.19(L) 4.00 - 5.21 x10(6)/ L [facility] Hemoglobin 7.2(L) 11.7 - 15.5 g/dL [facility] Hematocrit 20.3(L) 35.7 - 45.8 % [facility] Mean Cell Volume 92.7 82.6 - 94.4 fL [facility] Mean Cell Hemoglobin 32.9(H) 27.1 - 32.0 pg [facility] Mean Cell Hemoglobin Concentration 35.5(H) 31.7 - 35.0 g/dL [facility] Platelet 112(L) 145 - 357 x10(3)/mc L [facility] RDW Standard Deviation 41.4 37.0 - 46.0 fL [facility] RDW coefficient of variation 12.5 11.5 - 14.1 % [facility] Mean Platelet Volume 10.4 7.6 - 12.9 fL [facility] NRBC% auto 1.5 % [facility] NRBC Absolute 0.170(H) 0.000 - 0.000 x10(3)/mc L [facility] Blood 05/14/2023 1:10 AM EDT 05/14/2023 1:24 AM EDT Narrative Resulting Agency Comment Spec In Lab Bonita TOBAR HEMATOLOGY ORDERABLE S Performing Organization Address City/State/[place] Co de Phone Number [facility] [place] [address] * (ABNORMAL) Comprehensive metabolic panel (non-fasting) (05/14/2023 1:10 AM EDT) Glucose 120 65 - 199 mg/dL [facility] Comment:Diabetes: >=200 mg/d L plus symptoms Blood Urea Nitrogen 98(H) 8 - 18 mg/dL [facility] Creatinine 4.80(H) 0.70 - 1.20 mg/dL [facility] Comment:result rechecked-ssc Sodium 132(L) 135 - 145 mmol/L [facility] Potassium 4.1 3.5 - 5.0 mmol/L [facility] Comment: Please note: ??Patients with WBC >100,000 may have falsely elevated Potassium levels. ??For accurate Potassium quantification in these patients send serum separator tube (gold top) for subsequent determinations. ??Contact the Clinical Chemistry Laboratory if there are any questions. Chloride 94(L) 98 - 107 mmol/L [facility] Carbon Dioxide 18(L) 22 - 31 mmol/L [facility] Anion Gap 20(H) 5 - 15 mmol/L [facility] Calcium 8.5 8.5 - 10.5 mg/dL [facility] Protein, Total 5.8(L) 6.1 - 8.0 g/dL [facility] Albumin 3.6 3.2 - 5.2 g/dL [facility] Aspartate Aminotransferase 319(H) 0 - 30 unit/L [facility] Alanine Aminotransferase 437(H) 0 - 30 unit/L [facility] Alkaline Phosphatase 86 35 - 105 unit/L [facility] Bilirubin, Total 0.4 0.2 - 1.3 mg/dL [facility] Est Glomerular Filtration Rate 9(L) >=60 mL/min/1. 73 m?? [facility] Comment: This patient's estimated GFR [...] MD CHEMISTRY ORDERABLE S Performing Organization Address City/[facility]/[place] [address] * APTT (05/13/2023 10:15 AM EDT) Partial Thromboplastin Time 27 25 - 37 sec [facility] Comment: The PTT is NOT appropriate for heparin monitoring. Use the Anti-Xa level for heparin monitoring (HEP UFH) or LMWH monitoring (HEP LMW). A PTT less than 37 seconds generally indicates adequate hemostasis. Blood 05/13/2023 10:1 5 AM EDT 05/13/2023 10:46 AM EDT Narrative Resulting Agency Comment Spec In Lab Alirio Hudson MD HEMATOLOGY ORDERABL ES Performing Organization Address City/[facility] Hospital/ZIP Co de Phone Number [facility] [place] [address] * (ABNORMAL) Prothrombin Time (05/13/2023 10:15 AM EDT) Prothrombin Time 14.6(H) 9.4 - 12.5 sec [facility] International Normalization Ratio 1.3 [facility] Comment: An INR <2.0 indicates [...] Lab Alirio Hudson MD HEMATOLOGY ORDERABL ES [facility] [place] [address] * EKG 12 Lead (05/13/2023 9:22 AM EDT) Ventricular rate 92 BPM MUSE SYSTEM Atrial Rate 92 BPM MUSE SYSTEM P-R Interval 140 ms MUSE SYSTEM QRS Duration 104 ms MUSE SYSTEM Q-T Interval 384 ms MUSE SYSTEM QTC Calculated (Bezet) 474 ms MUSE SYSTEM Calculated P Gilliam 33 degrees MUSE SYSTEM Calculated R Gilliam 41 degrees MUSE SYSTEM Calculated T Gilliam -35 degrees MUSE SYSTEM INTERPRETATION Sinus rhythm with frequent Premature ventricular complexes Septal infarct , age undetermined ST & T wave abnormality, consider lateral ischemia Abnormal ECG When compared with ECG of 12-MAY-2023 10:10, Premature ventricular complexes are now Present I personally reviewed the tracing and edited the fellows interpretation Confirmed by fellow MD Anitha, Carissa ([id number]) on 05/13/2023 3:25:30 PM Confirmed by Maxx Best ([id number]) on 05/13/2023 8:30:56 PM MUSE SYSTEM 05/13/2023 9:22 AM EDT 05/13/2023 8:30 PM EDT Alirio Hudson MD ECG ORDERABLES MUSE SYSTEM * (ABNORMAL) Differential, Automated (05/13/2023 1:15 AM EDT) Neutrophil % 88.1 % [facility] Neutrophil Absolute 7.62(H) 1.70 - 6.10 x10(3)/mc L [facility] Lymph % 3.1 % [facility] Lymphocytes Abs 0.3(L) 0.9 - 3.2 x10(3)/mc L [facility] Monocyte % 7.9 % [facility] Monocyte Abs 0.7 0.3 - 0.9 x10(3)/mc L [facility] Eos % 0.0 % [facility] Eosinophils Abs 0.0 0.0 - 0.4 x10(3)/mc L [facility] Basophil % 0.1 % [facility] Baso Absolute 0.0 0.0 - 0.1 x10(3)/mc L [facility] Immature Gran % 0.80 % [facility] Comment: Immature granulocytes(IG's)percentage and absolute count will include metamyelocytes, myelocytes, and promyelocytes. Blood smears from CBCs yielding IG's will be scanned manually for concordance. If this scan disagrees with the automated IG or if promyelocytes are noted, a manual differential will be performed. Immature Gran Absolute 0.07(H) 0.00 - 0.04 x10(3)/mc L [facility] Blood 05/13/2023 1:15 AM EDT 05/13/2023 1:29 AM EDT Narrative Resulting Agency Comment Spec In Lab Lorri TOBAR HEMATOLOGY ORDERABLE S [facility] [place] [address] * (ABNORMAL) Hemogram (05/13/2023 1:15 AM EDT) White Blood Cell 8.6 4.0 - 9.5 x10(3)/mc L [facility] Red Blood Cell 2.37(L) 4.00 - 5.21 x10(6)/mc L [facility] Hemoglobin 7.8(L) 11.7 - 15.5 g/dL [facility] Hematocrit 22.2(L) 35.7 - 45.8 % [facility] Mean Cell Volume 93.7 82.6 - 94.4 fL [facility] Mean Cell Hemoglobin 32.9(H) 27.1 - 32.0 pg [facility] Mean Cell Hemoglobin Concentration 35.1(H) 31.7 - 35.0 g/dL [facility] Platelet 130(L) 145 - 357 x10(3)/mc L [facility] RDW Standard Deviation 41.7 37.0 - 46.0 fL [facility] RDW coefficient of variation 12.5 11.5 - 14.1 % [facility] Mean Platelet Volume 10.2 7.6 - 12.9 fL [facility] NRBC% auto 0.5 % [facility] NRBC Absolute 0.040(H) 0.000 - 0.000 x10(3)/mc L [facility] Blood 05/13/2023 1:15 AM EDT 05/13/2023 1:29 AM EDT Narrative Resulting Agency Comment Spec In Lab Lorri TOBAR HEMATOLOGY ORDERABLE S [facility] [place] [address] * (ABNORMAL) Hepatic Function Panel (05/13/2023 1:15 AM EDT) Protein, Total 5.5(L) 6.1 - 8.0 g/dL [facility] Albumin 3.0(L) 3.2 - 5.2 g/dL [facility] Aspartate Aminotransferase 792(H) 0 - 30 unit/L [facility] Alanine Aminotransferase 903(H) 0 - 30 unit/L [facility] Alkaline Phosphatase 85 35 - 105 unit/L [facility] Bilirubin, Total 0.5 0.2 - 1.3 mg/dL [facility] Bilirubin, Direct 0.3 0.0 - 0.3 mg/dL [facility] Blood 05/13/2023 1:15 AM EDT 05/13/2023 1:29 AM EDT Narrative Resulting Agency Comment Spec In Lab Alirio Hudson MD CHEMISTRY ORDERABLE S [facility] [place] [address] * (ABNORMAL) Basic Metabolic Panel (non-fasting) (05/13/2023 1:15 AM EDT) Glucose 107 65 - 199 mg/dL [facility] Comment:Diabetes: >=200 mg/d L plus symptoms Blood Urea Nitrogen 82(H) 8 - 18 mg/dL [facility] Creatinine 3.15(H) 0.70 - 1.20 mg/dL [facility] Comment:result rechecked-OG Sodium 132(L) 135 - 145 mmol/L [facility] Potassium 3.8 3.5 - 5.0 mmol/L [facility] Comment: Please note: ??Patients with WBC >100,000 may have falsely elevated Potassium levels. ??For accurate Potassium quantification in these patients send serum separator tube (gold top) for subsequent determinations. ??Contact the Clinical Chemistry Laboratory if there are any questions. Chloride 95(L) 98 - 107 mmol/L [facility] Carbon Dioxide 20(L) 22 - 31 mmol/L [facility] Anion Gap 17(H) 5 - 15 mmol/L [facility] Calcium 8.3(L) 8.5 - 10.5 mg/dL [facility] Est Glomerular Filtration Rate 16(L) >=60 mL/min/1. 73 m?? [facility] Comment: This patient's estimated GFR [...] Lab Alirio Hudson MD CHEMISTRY ORDERABLE S [facility] [place] [address] * (ABNORMAL) BLOOD GAS 2 ARTERIAL (05/12/2023 3:57 PM EDT) pH, Arterial 7.39 7.35 - 7.45 [facility] PCO2, Arterial 33(L) 35 - 45 mmHg [facility] PO2, Arterial 101 85 - 104 mmHg [facility] Bicarbonate, Arterial 19.5(L) 20.0 - 26.0 mmol/L [facility] Base Excess, Arterial -5.5(L) -3.0 - 3.0 mmol/L [facility] Hgb Blood Gas 9.8(L) 11.7 - 15.5 g/dL [facility] Oxyhemoglobin, Arterial 95.2 94.0 - 97.0 % [facility] Carboxyhemoglob in, Arterial 0.2 % [facility] Comment: Nonsmokers: 0.5-1.5% COHB Smokers: Variable, but usually less than 10% Toxic: 20-30% COHB Lethal: Greater than 60% COHB Methemoglobin, Arterial 0.8 <=1.5 % [facility] Na Whole Blood 129(L) 135 - 145 mmol/L [facility] K Whole Blood 3.8 3.5 - 5.0 mmol/L [facility] Comment: Please note: Patients with WBC >100,000 may have falsely elevated Potassium levels. Contact the Clinical Chemistry Laboratory if there are any questions. ICa Whole Blood 1.05(L) 1.15 - 1.33 mmol/L [facility] Comment: Note: ??Total bilirubin higher than 20 mg/dL may lead to falsely low ionized calcium. CL Whole Blood 96(L) 98 - 107 mmol/L [facility] Gluc Whole Bld 178 65 - 199 mg/dL [facility] Comment:Diabetes: >=200 mg/d L plus symptoms. Lactate WB 1.5 0.5 - 2.2 mmol/L [facility] FIO2 Art 40 % [facility] PF Ratio Art 252 [facility] Blood 05/12/2023 3:57 PM EDT 05/12/2023 3:57 PM EDT Alirio Hudson MD POINT OF CARE TEST ORDERABLES Performing Organization Address [facility]/[place] Co de Phone Number [facility] [place] [address] * (ABNORMAL) Coox2 (05/12/2023 2:25 PM EDT) pO2, Coox 37 mmHg [facility] Hgb Blood Gas 9.5(L) 11.7 - 15.5 g/dL [facility] Oxyhemoglobin, Coox 59.9 % [facility] Carboxyhemoglo bin, Coox 0.3 % [facility] Comment: Nonsmokers: 0.5-1.5% COHB Smokers: Variable, but usually less than 10% Toxic: 20-30% COHB Lethal: Greater than 60% COHB Methemoglobin, Coox 0.7 <=1.5 % [facility] Source Coox Mixed Venous [facility] Blood 05/12/2023 2:25 PM EDT 05/12/2023 2:25 PM EDT Alirio Hudson MD POINT OF CARE TEST ORDERABLES Performing Organization Address City/[facility]/[place] Co de Phone Number [facility] [place] [address] * (ABNORMAL) BLOOD GAS 2 ARTERIAL (05/12/2023 2:23 PM EDT) pH, Arterial 7.37 7.35 - 7.45 [facility] PCO2, Arterial 36 35 - 45 mmHg [facility] PO2, Arterial 102 85 - 104 mmHg [facility] Bicarbonate, Arterial 20.4 20.0 - 26.0 mmol/L [facility] Base Excess, Arterial -4.8(L) -3.0 - 3.0 mmol/L [facility] Hgb Blood Gas 12.7 11.7 - 15.5 g/dL [facility] Oxyhemoglobin, Arterial 95.4 94.0 - 97.0 % [facility] Carboxyhemoglob in, Arterial 0.3 % [facility] Comment: Nonsmokers: 0.5-1.5% COHB Smokers: Variable, but usually less than 10% Toxic: 20-30% COHB Lethal: Greater than 60% COHB Methemoglobin, Arterial 0.7 <=1.5 % [facility] Na Whole Blood 129(L) 135 - 145 mmol/L [facility] K Whole Blood 3.7 3.5 - 5.0 mmol/L [facility] Comment: Please note: Patients with WBC >100,000 may have falsely elevated Potassium levels. Contact the Clinical Chemistry Laboratory if there are any questions. ICa Whole Blood 1.05(L) 1.15 - 1.33 mmol/L [facility] Comment: Note: ??Total bilirubin higher than 20 mg/dL may lead to falsely low ionized calcium. CL Whole Blood 95(L) 98 - 107 mmol/L [facility] Gluc Whole Bld 168 65 - 199 mg/dL [facility] Comment:Diabetes: >=200 mg/d L plus symptoms. Lactate WB 1.8 0.5 - 2.2 mmol/L [facility] FIO2 Art 40 % [facility] PF Ratio Art 255 [facility] Blood 05/12/2023 2:23 PM EDT 05/12/2023 2:23 PM EDT Alirio Hudson MD POINT OF CARE TEST ORDERABLES Performing Organization Address City/State/[place] Co de Phone Number [facility] [place] [address] * (ABNORMAL) Troponin (05/12/2023 2:05 PM EDT) Troponin-T, High Sensitivity 1,022(H) <=14 ng/L [facility] Comment: This patient's troponin T [...] troponin value can be found in the [facility] Test Catalog Troponin - [facility] Test Catalog Reference: Fourth [place] Definition of Myocardial Infarction. Journal of the [place] [employer] 2018;72:8419-1117 Blood 05/12/2023 2:05 PM EDT 05/12/2023 2:14 PM EDT Narrative Resulting Agency Comment Spec In Lab Alirio Hudson MD CHEMISTRY ORDERABLE S Performing Organization Address [facility] Co de Phone Number [facility] [facility] [place] [address] * (ABNORMAL) Hemoglobin (05/12/2023 2:05 PM EDT) Hemoglobin 8.5(L) 11.7 - 15.5 g/dL [facility] Blood 05/12/2023 2:05 PM EDT 05/12/2023 2:14 PM EDT Narrative Resulting Agency Comment Spec In Lab Alirio Hudson MD HEMATOLOGY ORDERABL ES Performing Organization Address [facility] Co de Phone Number [facility] [place] [address] * Potassium (05/12/2023 2:05 PM EDT) Potassium 3.9 3.5 - 5.0 mmol/L [facility] Comment: Please note: ??Patients with [...] Organization Address City/State/[facility] Co de Phone Number [facility] [place] [address] * (ABNORMAL) BLOOD GAS 2 ARTERIAL (05/12/2023 11:05 AM EDT) pH, Arterial 7.34(L) 7.35 - 7.45 [facility] PCO2, Arterial 42 35 - 45 mmHg [facility] PO2, Arterial 73(L) 85 - 104 mmHg [facility] Bicarbonate, Arterial 22.1 20.0 - 26.0 mmol/L [facility] Base Excess, Arterial -3.6(L) -3.0 - 3.0 mmol/L [facility] Hgb Blood Gas 9.3(L) 11.7 - 15.5 g/dL [facility] Oxyhemoglobin, Arterial 89.3(L) 94.0 - 97.0 % [facility] Carboxyhemoglob in, Arterial 0.2 % [facility] Comment: Nonsmokers: 0.5-1.5% COHB Smokers: Variable, but usually less than 10% Toxic: 20-30% COHB Lethal: Greater than 60% COHB Methemoglobin, Arterial 0.9 <=1.5 % [facility] Na Whole Blood 131(L) 135 - 145 mmol/L [facility] K Whole Blood 3.8 3.5 - 5.0 mmol/L [facility] Comment: Please note: Patients with WBC >100,000 may have falsely elevated Potassium levels. Contact the Clinical Chemistry Laboratory if there are any questions. ICa Whole Blood 1.04(L) 1.15 - 1.33 mmol/L [facility] Comment: Note: ??Total bilirubin higher than 20 mg/dL may lead to falsely low ionized calcium. CL Whole Blood 96(L) 98 - 107 mmol/L [facility] Gluc Whole Bld 152 65 - 199 mg/dL [facility] Comment:Diabetes: >=200 mg/d L plus symptoms. Lactate WB 2.8(H) 0.5 - 2.2 mmol/L [facility] FIO2 Art 40 % [facility] PF Ratio Art 182 [facility] Blood 05/12/2023 11:0 5 AM EDT 05/12/2023 11:05 AM EDT Alirio Hudson MD POINT OF CARE TEST ORDERABLES [facility] [address] [place] [address] * (ABNORMAL) BLOOD GAS 2 ARTERIAL (05/12/2023 10:14 AM EDT) pH, Arterial 7.18(Criti gabrielle) 7.35 - 7.45 [facility] Comment:Noted by instrument maintenance supervisor. PCO2, Arterial 45 35 - 45 mmHg [facility] PO2, Arterial 186(H) 85 - 104 mmHg [facility] Bicarbonate, Arterial 16.2(L) 20.0 - 26.0 mmol/L [facility] Base Excess, Arterial -12.2(L) -3.0 - 3.0 mmol/L [facility] Hgb Blood Gas 10.0(L) 11.7 - 15.5 g/dL [facility] Oxyhemoglobin, Arterial 97.0 94.0 - 97.0 % [facility] Carboxyhemoglob in, Arterial 0.2 % [facility] Comment: Nonsmokers: 0.5-1.5% COHB Smokers: Variable, but usually less than 10% Toxic: 20-30% COHB Lethal: Greater than 60% COHB Methemoglobin, Arterial 0.9 <=1.5 % [facility] Na Whole Blood 129(L) 135 - 145 mmol/L [facility] K Whole Blood 3.6 3.5 - 5.0 mmol/L [facility] Comment: Please note: Patients with WBC >100,000 may have falsely elevated Potassium levels. Contact the Clinical Chemistry Laboratory if there are any questions. ICa Whole Blood 1.10(L) 1.15 - 1.33 mmol/L [facility] Comment: Note: ??Total bilirubin higher than 20 mg/dL may lead to falsely low ionized calcium. CL Whole Blood 97(L) 98 - 107 mmol/L [facility] Gluc Whole Bld 161 65 - 199 mg/dL [facility] Comment:Diabetes: >=200 mg/d L plus symptoms. Lactate WB 3.3(H) 0.5 - 2.2 mmol/L [facility] FIO2 Art 100 % [facility] PF Ratio Art 186 [facility] Blood 05/12/2023 10:1 4 AM EDT 05/12/2023 10:14 AM EDT Alirio Hudson MD POINT OF CARE TEST ORDERABLES Performing Organization Address [facility] Co de Phone Number [facility] [place] [address] * EKG 12 Lead (05/12/2023 10:10 AM EDT) Ventricular rate 116 BPM MUSE SYSTEM Atrial Rate 116 BPM MUSE SYSTEM P-R Interval 158 ms MUSE SYSTEM QRS Duration 114 ms MUSE SYSTEM Q-T Interval 348 ms MUSE SYSTEM QTC Calculated (Bezet) 483 ms MUSE SYSTEM Calculated P Gilliam 37 degrees MUSE SYSTEM Calculated R Gilliam 31 degrees MUSE SYSTEM Calculated T Gilliam -138 degrees MUSE SYSTEM INTERPRETATION Sinus tachycardia [...] interpretation Confirmed by fellow MD Anuja, Jim ([id number]) on 05/12/2023 1:04:20 PM Confirmed by MD Villareal Danette ([id number]) on 05/12/2023 9:28:34 PM MUSE SYSTEM 05/12/2023 [...] who have questions please contact the health medicare coordinator that requested your imaging first. ? Narrative 05/12/2023 10:08 AM EDT EXAMINATION: XR CHEST ONE VIEW CLINICAL HISTORY: Post TAVR TECHNIQUE: 1 view of the chest COMPARISON: Chest radiograph from earlier today FINDINGS: Interval placement of endotracheal tube with tip terminating 2 cm above the shira. Interval placement of enteric tube projecting along the expected course of the esophagus and outside the jqumu-bd-hryf. Interval retraction of right IJ approach pulmonary [...] expected course ofthe esophagus and outside the zzpdj-ri-gqtj. Interval retraction of right IJ approach pulmonary [...] patients who have questions please contactthe health medicare coordinator that requested your imaging first. Alirio Hudson MD IMG DX ORDERABLES * ECHO LMTD W/O CONTRAST W LMTD SPEC DOPP COLOR DOPP (05/12/2023 9:23 AM EDT) EF 20 HEARTLAB SYSTEM Anatomical Region Laterality Modality Cardiac Other 05/12/2023 7:33 AM EDT Narrative 05/12/2023 10:18 AM EDT ? Echocardiogram Report Name: PURNIMA THACKER ?Study Date: 05/12/2023 07:33 AMBP: 96/63 mmHg ? Patient Location: [place] CA06 A : 1955 ? Height: 154 cm ? Account: [id number] Age: 67 yrs ? Weight: 75 kg [...] mL/m2. POST TAVR: Normal function of the msyul-xh-fxqme prosthesis. See below for hemodynamic parameters. Slight improvement in left and right ventricular systolic function. LVEF now 20-25%. No pericardial effusion. See report for additional findings. Procedure Limited - 32779. Doppler - 00069. Color Doppler - 77421. Left Ventricle Left ventricle is of normal [...] 307:33 AMBP: 96/63 mmHg Patient Location: [address] : 1955 Height: 154 cm Account: [id number] Age: 67 yrs Weight: 75 kg Gender: [...] 28mL/m2. POST TAVR: Normal function of the xpzzx-le-beizv prosthesis. See belowfor hemodynamic parameters. Slight improvement in left and right ventricularsystolic function. LVEF now 20-25%. No pericardial effusion. See report for additional findings. Procedure Limited - 74822. Doppler - 44289. Color Doppler - 31826. Left Ventricle Left ventricle is of normal [...] Modality Other Narrative 05/12/2023 2:37 PM EDT ?[facility] ? Cardiac Catheterization/Intervention Report ? Patient Name: Kirstie, Purnima M. ? Procedure Date: 05/12/2023 ? A #: [id number] ? Primary Physician: Antelmo Sharma ? Case #: [id number] ? File Name: [id number] ? Catheterization Order Number: [id number] ? [facility] ? Final Report [place], [place] ? Patient Name: ? Purnima M. Kirstie ? ID#: ?[id number] ? : ?1955 ? Procedure Date: ? May 12, 2023 ? Case #: ? [id number] ? Room: ? 6 ? Case Physicians: ?Antelmo Sharma M.D. ?Start: ?08:03 ?Alirio Hudson M.D. ?Admission: ??05/08/2023 ?Lynda Mcgowan M.D. ? Discharge: ??05/22/2023 ?Fellow: ? Rebekah Tejeda M.D. ? Referring Physician: ??Mario Alberto Chin M.D. ? Procedures: ?* Coronary Angiography ?* Left Heart Catheterization ?* Coronary Stent Insertion ?* Transcatheter Aortic Valve Replacement ?* Vascular Closure Device Deployment ?* Temporary Pacemaker Insertion In [employer] ?* Endotracheal Intubation By Non-Cath Physician ?* [...] ??A premounted 4.00 x 30 mm Nils [place] (MINNA) was ? deployed with a maximum [...] calculated STS risk score was 30.1%. A ksrdc-nd-gyvhk ?procedure was performed on the pre-existing bioprosthetic stented ?prosthesis. The priority of the tpcfe-pr-sskbi procedure was Elective. ?The procedure was performed [...] Lai 3 Ultra RESILIA 23 mm THV (s/v=[id number]) transcatheter ?valve was inserted using standard technique. [...] to nor was it given in the ?production laborer. ?Recommended anti-platelet/anti-thrombotic regimen: ?Continue aspirin 81 mg daily for indefinitely. ?These recommendations are made at the time of the intervention. Patient ?and provider preferences or a changing clinical situation may require ?modification of this regimen. Consult [facility] Interventional Cardiology for ?questions. ? Conclusions: ?* [...] regimen. ? Comments: ?Successful right transfemoral TAVR Hhrbu-ad-Huhiu with a 23 mm Lai 3 ?THV. [...] insertion-coronary, access site angiography, ?temporary pacemaker in production laborer, intubation-non cath physician, vascular ?closure device, transthoracic echo ??and TAVR. Dr. Alirio Hudson M.D. ?performed the left heart catheterization, access site angiography, ?temporary pacemaker in production laborer, vascular closure device, transthoracic ?echo , TAVR and CPR during cath. Dr. Lynda Mcgowan M.D. performed the ABG, ?anesthesia and intubation-non cath physician. ? Antelmo Sharma M.D. ? Electronically Signed by: Antelmo Sharma M.D. ? Report Finalized: 05/12/2023 ??14:31 ? Report Last Ammended: 07/01/2023 ??11:30 ? Procedure Note Antelmo Sharma MD - 07/01/2023 [facility] Cardiac Catheterization/Intervention Report Patient Name: Purnima Thacker Procedure Date: 05/12/2023 A #: [id number] Primary Physician: Antelmo Sharma Case #: [id number] File Name: [id number] Catheterization Order Number: [id number] [facility] FinalReport [place], [place] Patient Name: Purnima Thacker ID#:[id number] :1955 Procedure Date: May 12, 2023 Case #: [id number] Room: 6 Case Physicians: Antelmo Sharma M.D. Start: 08:03 Alirio Hudson M.D. Admission:05/08/2023 Lynda Mcgowan M.D. Discharge:05/22/2023 Fellow: Rebekah Tejeda M.D. Referring Physician: Mario Alberto Chin M.D. Procedures: * Coronary Angiography * Left Heart Catheterization * Coronary Stent Insertion * Transcatheter Aortic Valve Replacement * Vascular Closure Device Deployment * Temporary Pacemaker Insertion In [employer] * Endotracheal Intubation By Non-Cath Physician * [...] A premounted 4.00 x 30 mm Nils [place] (MINNA) was deployed with a maximum inflation [...] calculated STS risk score was 30.1%. A pkyhc-jf-jzhau procedure was performed on the pre-existing bioprosthetic stented prosthesis. The priority of the spvqc-ro-lceiy procedure wasElective. The procedure was performed under Moderate sedation performed byLynda Mcgowan M.D. (see anesthesia report for additional details). Alirio Hudson M.D. participated in the case (see Cardiac Surgery reportfor additional details). The TAVR sheath was a 14 Fr Corona eSheath Introducer and theaccess site was femoral. Rapid ventricular pacing was performed. An Corona Lai 3 Ultra RESILIA 23 mm THV (s/d=[id number])transcatheter valve was inserted using standard technique. The [...] prior to nor was it given inthe production laborer. Recommended anti-platelet/anti-thrombotic regimen: Continue aspirin 81 mg daily for indefinitely. These recommendations are made at the time of the intervention.Patient and provider preferences or a changing clinical situation mayrequire modification of this regimen. Consult [facility] Interventional Cardiologyfor questions. Conclusions: * Nonobstructive disease [...] this regimen. Comments: Successful right transfemoral TAVR Rhzgk-nr-Udsbj with a 23 mmSapien 3 THV. We [...] insertion-coronary, access site angiography, temporary pacemaker in production laborer, intubation-non cath physician,vascular closure device, transthoracic echo and TAVR. Dr. Alirio Hudson M.D. performed the left heart catheterization, access site angiography, temporary pacemaker in production laborer, vascular closure device,transthoracic echo , TAVR [...] pH, POC 7.20(Crit ical) 7.35 - 7.45 [facility] Comment:Critical value OK, C C Lab. pCO2, POC 42 35 - 45 mmHg [facility] pO2, POC 260(H) 85 - 104 mmHg [facility] Base Excess, POC -11.0(L) -3.0 - 3.0 mmol/L [facility] Bicarbonate, POC 16.7(L) 20.0 - 26.0 mmol/L [facility] Sodium, POC 129(L) 135 - 145 mmol/L [facility] POC Potassium 3.8 3.5 - 5.0 mmol/L [facility] Ionized Calcium, POC 1.12(L) 1.15 - 1.33 mmol/L [facility] POC Hematocrit 23.0(L) 34.0 - 45.0 % [facility] POC Calc Hgb 7.8(L) 11.2 - 15.7 g/dL [facility] Comment:The calculation of h emoglobin from hematocrit assumes a normal MCHC. POC Bgas Loc CC Lab [facility] Blood 05/12/2023 8:50 AM EDT 05/13/2023 12:00 PM EDT Alirio Hudson MD CHEMISTRY ORDERABLE S [facility] [place] [address] * (ABNORMAL) Point of Care Blood Gas Historical (05/12/2023 8:10 AM EDT) pH, POC 7.27(Crit ical) 7.35 - 7.45 [facility] Comment:Critical value OK, C C Lab. pCO2, POC 37 35 - 45 mmHg [facility] pO2, POC 29(Critic al) 85 - 104 mmHg [facility] Comment:Critical value OK, C C Lab. Base Excess, POC -10.0(L) -3.0 - 3.0 mmol/L [facility] Bicarbonate, POC 16.7(L) 20.0 - 26.0 mmol/L [facility] Sodium, POC 123(L) 135 - 145 mmol/L [facility] POC Potassium 4.0 3.5 - 5.0 mmol/L [facility] Ionized Calcium, POC 1.12(L) 1.15 - 1.33 mmol/L [facility] POC Hematocrit 27.0(L) 34.0 - 45.0 % [facility] POC Calc Hgb 9.2(L) 11.2 - 15.7 g/dL [facility] Comment:The calculation of h emoglobin from hematocrit assumes a normal MCHC. POC Bgas Loc CC Lab [facility] Blood 05/12/2023 8:10 AM EDT 05/13/2023 12:00 PM EDT Alirio Hudson MD CHEMISTRY ORDERABLE S [facility] [place] [address] * (ABNORMAL) Lactate, whole blood, send to lab ([facility]) (05/12/2023 7:00 AM EDT) Lactate WB 2.4(H) 0.5 - 2.2 mmol/L [facility] Blood 05/12/2023 7:00 AM EDT 05/12/2023 7:09 AM EDT Narrative Resulting Agency Comment Spec In Lab Radha Hollins MD CHEMISTRY ORDERABL ES [facility] [place] [address] * (ABNORMAL) Comprehensive metabolic panel (non-fasting) (05/12/2023 6:00 AM EDT) Glucose 167 65 - 199 mg/dL [facility] Comment:Diabetes: >=200 mg/d L plus symptoms Blood Urea Nitrogen 67(H) 8 - 18 mg/dL [facility] Creatinine 2.01(H) 0.70 - 1.20 mg/dL [facility] Sodium 131(L) 135 - 145 mmol/L [facility] Potassium 4.3 3.5 - 5.0 mmol/L [facility] Comment: Please note: ??Patients with WBC >100,000 may have falsely elevated Potassium levels. ??For accurate Potassium quantification in these patients send serum separator tube (gold top) for subsequent determinations. ??Contact the Clinical Chemistry Laboratory if there are any questions. Chloride 97(L) 98 - 107 mmol/L [facility] Carbon Dioxide 14(L) 22 - 31 mmol/L [facility] Anion Gap 20(H) 5 - 15 mmol/L [facility] Calcium 8.6 8.5 - 10.5 mg/dL [facility] Protein, Total 6.3 6.1 - 8.0 g/dL [facility] Albumin 3.5 3.2 - 5.2 g/dL [facility] Aspartate Aminotransferase 1,435(H) 0 - 30 unit/L [facility] Alanine Aminotransferase 1,174(H) 0 - 30 unit/L [facility] Alkaline Phosphatase 100 35 - 105 unit/L [facility] Bilirubin, Total 0.9 0.2 - 1.3 mg/dL [facility] Est Glomerular Filtration Rate 27(L) [...] MD CHEMISTRY ORDERABL ES Performing Organization Address [facility] Co de Phone Number [facility] [place] [address] * (ABNORMAL) Coox2 (05/12/2023 5:08 AM EDT) pO2, Coox 24 mmHg [facility] Hgb Blood Gas 10.4(L) 11.7 - 15.5 g/dL [facility] Oxyhemoglobin, Coox 30.7 % [facility] Carboxyhemoglo bin, Coox 0.3 % [facility] Comment: Nonsmokers: 0.5-1.5% COHB Smokers: Variable, but usually less than 10% Toxic: 20-30% COHB Lethal: Greater than 60% COHB Methemoglobin, Coox 0.8 <=1.5 % [facility] Source Coox Mixed Venous [facility] Blood 05/12/2023 5:08 AM EDT 05/12/2023 5:08 AM EDT Radha Hollins MD POINT OF CARE TEST ORDERABLES Performing Organization Address [facility] Co de Phone Number [facility] [place] [address] * (ABNORMAL) Coox2 (05/12/2023 3:21 AM EDT) pO2, Coox 25 mmHg [facility] Hgb Blood Gas 10.8(L) 11.7 - 15.5 g/dL [facility] Oxyhemoglobin, Coox 32.7 % [facility] Carboxyhemoglo bin, Coox 0.3 % [facility] Comment: Nonsmokers: 0.5-1.5% COHB Smokers: Variable, but usually less than 10% Toxic: 20-30% COHB Lethal: Greater than 60% COHB Methemoglobin, Coox 0.7 <=1.5 % [facility] Source Coox Mixed Venous [facility] Blood 05/12/2023 3:21 AM EDT 05/12/2023 3:21 AM EDT Radha Hollins MD POINT OF CARE TEST ORDERABLES [facility] [place] [address] * (ABNORMAL) BLOOD GAS 2 ARTERIAL (05/12/2023 3:18 AM EDT) pH, Arterial 7.34(L) 7.35 - 7.45 [facility] PCO2, Arterial 30(L) 35 - 45 mmHg [facility] PO2, Arterial 72(L) 85 - 104 mmHg [facility] Bicarbonate, Arterial 16.0(L) 20.0 - 26.0 mmol/L [facility] Base Excess, Arterial -9.8(L) -3.0 - 3.0 mmol/L [facility] Hgb Blood Gas 11.0(L) 11.7 - 15.5 g/dL [facility] Oxyhemoglobin, Arterial 89.8(L) 94.0 - 97.0 % [facility] Carboxyhemoglob in, Arterial 0.3 % [facility] Comment: Nonsmokers: 0.5-1.5% COHB Smokers: Variable, but usually less than 10% Toxic: 20-30% COHB Lethal: Greater than 60% COHB Methemoglobin, Arterial 0.7 <=1.5 % [facility] Na Whole Blood 131(L) 135 - 145 mmol/L [facility] K Whole Blood 4.2 3.5 - 5.0 mmol/L [facility] Comment: Please note: Patients with WBC >100,000 may have falsely elevated Potassium levels. Contact the Clinical Chemistry Laboratory if there are any questions. ICa Whole Blood 1.12(L) 1.15 - 1.33 mmol/L [facility] Comment: Note: ??Total bilirubin higher than 20 mg/dL may lead to falsely low ionized calcium. CL Whole Blood 100 98 - 107 mmol/L [facility] Gluc Whole Bld 160 65 - 199 mg/dL [facility] Comment:Diabetes: >=200 mg/d L plus symptoms. Lactate WB 2.7(H) 0.5 - 2.2 mmol/L [facility] Flow Art 5.0 LPM [facility] Blood 05/12/2023 3:18 AM EDT 05/12/2023 3:18 AM EDT Radha Hlolins MD POINT OF CARE TEST ORDERABLES Performing Organization Address [facility] Co de Phone Number [facility] [place] [address] * (ABNORMAL) Coox2 (05/12/2023 1:14 AM EDT) pO2, Coox 28 mmHg [facility] Hgb Blood Gas 10.9(L) 11.7 - 15.5 g/dL [facility] Oxyhemoglobin, Coox 37.3 % [facility] Carboxyhemoglo bin, Coox 0.3 % [facility] Comment: Nonsmokers: 0.5-1.5% COHB Smokers: Variable, but usually less than 10% Toxic: 20-30% COHB Lethal: Greater than 60% COHB Methemoglobin, Coox 0.5 <=1.5 % [facility] Source Coox Mixed Venous [facility] Blood 05/12/2023 1:14 AM EDT 05/12/2023 1:14 AM EDT Radha Hollins MD POINT OF CARE TEST ORDERABLES Performing Organization Address [facility] Co de Phone Number [facility] [place] [address] * (ABNORMAL) BLOOD GAS 2 ARTERIAL (05/12/2023 1:06 AM EDT) pH, Arterial 7.34(L) 7.35 - 7.45 [facility] PCO2, Arterial 30(L) 35 - 45 mmHg [facility] PO2, Arterial 81(L) 85 - 104 mmHg [facility] Bicarbonate, Arterial 15.7(L) 20.0 - 26.0 mmol/L [facility] Base Excess, Arterial -10.1(L) -3.0 - 3.0 mmol/L [facility] Hgb Blood Gas 11.0(L) 11.7 - 15.5 g/dL [facility] Oxyhemoglobin, Arterial 92.3(L) 94.0 - 97.0 % [facility] Carboxyhemoglob in, Arterial 0.2 % [facility] Comment: Nonsmokers: 0.5-1.5% COHB Smokers: Variable, but usually less than 10% Toxic: 20-30% COHB Lethal: Greater than 60% COHB Methemoglobin, Arterial 0.6 <=1.5 % [facility] Na Whole Blood 131(L) 135 - 145 mmol/L [facility] K Whole Blood 4.2 3.5 - 5.0 mmol/L [facility] Comment: Please note: Patients with WBC >100,000 may have falsely elevated Potassium levels. Contact the Clinical Chemistry Laboratory if there are any questions. ICa Whole Blood 1.13(L) 1.15 - 1.33 mmol/L [facility] Comment: Note: ??Total bilirubin higher than 20 mg/dL may lead to falsely low ionized calcium. CL Whole Blood 99 98 - 107 mmol/L [facility] Gluc Whole Bld 132 65 - 199 mg/dL [facility] Comment:Diabetes: >=200 mg/d L plus symptoms. Lactate WB 2.7(H) 0.5 - 2.2 mmol/L [facility] Flow Art 5.0 LPM [facility] Blood 05/12/2023 1:06 AM EDT 05/12/2023 1:06 AM EDT Radha Hollins MD POINT OF C[place] [address] * (ABNORMAL) Differential, Automated (05/12/2023 1:05 AM EDT) Neutrophil % 83.3 % [facility] Neutrophil Absolute 7.49(H) 1.70 - 6.10 x10(3)/mc L [facility] Lymph % 7.1 % [facility] Lymphocytes Abs 0.6(L) 0.9 - 3.2 x10(3)/mc L [facility] Monocyte % 8.9 % [facility] Monocyte Abs 0.8 0.3 - 0.9 x10(3)/mc L [facility] Eos % 0.0 % [facility] Eosinophils Abs 0.0 0.0 - 0.4 x10(3)/mc L [facility] Basophil % 0.1 % [facility] Baso Absolute 0.0 0.0 - 0.1 x10(3)/mc L [facility] Immature Gran % 0.60 % [facility] Comment: Immature granulocytes(IG's)percentage and absolute count will include metamyelocytes, myelocytes, and promyelocytes. Blood smears from CBCs yielding IG's will be scanned manually for concordance. If this scan disagrees with the automated IG or if promyelocytes are noted, a manual differential will be performed. Immature Gran Absolute 0.05(H) 0.00 - 0.04 x10(3)/mc L [facility] Blood 05/12/2023 1:05 AM EDT 05/12/2023 1:15 AM EDT Narrative Resulting Agency Comment Spec In Lab Gianni Fletcher MD [place] [address] * (ABNORMAL) Hemogram (05/12/2023 1:05 AM EDT) White Blood Cell 9.0 4.0 - 9.5 x10(3)/mc L [facility] Red Blood Cell 3.01(L) 4.00 - 5.21 x10(6)/mc L [facility] Hemoglobin 9.8(L) 11.7 - 15.5 g/dL [facility] Hematocrit 28.7(L) 35.7 - 45.8 % [facility] Mean Cell Volume 95.3(H) 82.6 - 94.4 fL [facility] Mean Cell Hemoglobin 32.6(H) 27.1 - 32.0 pg [facility] Mean Cell Hemoglobin Concentration 34.1 31.7 - 35.0 g/dL [facility] Platelet 186 145 - 357 x10(3)/mc L [facility] RDW Standard Deviation 43.7 37.0 - 46.0 fL [facility] RDW coefficient of variation 12.7 11.5 - 14.1 % [facility] Mean Platelet Volume 10.3 7.6 - 12.9 fL [facility] NRBC% auto 0.0 % [facility] NRBC Absolute 0.000 0.000 - 0.000 x10(3)/ L [facility] Blood 05/12/2023 1:05 AM EDT 05/12/2023 1:15 AM EDT Narrative Resulting Agency Comment Spec In Lab Gianni Fletcher MD HEMATOLOGY ORDERABLE S [facility] [place] [address] * (ABNORMAL) Comprehensive metabolic panel (non-fasting) (05/12/2023 1:05 AM EDT) Glucose 141 65 - 199 mg/dL [facility] Comment:Diabetes: >=200 mg/d L plus symptoms Blood Urea Nitrogen 63(H) 8 - 18 mg/dL [facility] Creatinine 1.86(H) 0.70 - 1.20 mg/dL [facility] Sodium 131(L) 135 - 145 mmol/L [facility] Potassium 4.4 3.5 - 5.0 mmol/L [facility] Comment: Please note: ??Patients with WBC >100,000 may have falsely elevated Potassium levels. ??For accurate Potassium quantification in these patients send serum separator tube (gold top) for subsequent determinations. ??Contact the Clinical Chemistry Laboratory if there are any questions. Chloride 96(L) 98 - 107 mmol/L [facility] Carbon Dioxide 14(L) 22 - 31 mmol/L [facility] Anion Gap 21(H) 5 - 15 mmol/L [facility] Calcium 9.0 8.5 - 10.5 mg/dL [facility] Protein, Total 6.6 6.1 - 8.0 g/dL [facility] Albumin 3.9 3.2 - 5.2 g/dL [facility] Aspartate Aminotransferase 1,227(H) 0 - 30 unit/L [facility] Alanine Aminotransferase 1,097(H) 0 - 30 unit/L [facility] Alkaline Phosphatase 108(H) 35 - 105 unit/L [facility] Bilirubin, Total 1.0 0.2 - 1.3 mg/dL [facility] Est Glomerular Filtration Rate 29(L) >=60 mL/min/1. 73 m?? [facility] Comment: This patient's estimated GFR [...] Lab Radha Hollins MD CHEMISTRY ORDERABL ES [facility] [place] [address] * XR Chest One View (05/12/2023 1:00 [...] who have questions please contact the health medicare coordinator that requested your imaging first. ? [...] patients who have questions please contactthe health medicare coordinator that requested your imaging first. Radha Hollins MD IMG DX ORDERABLES * (ABNORMAL) Coox2 (05/12/2023 12:30 AM EDT) pO2, Coox 22 mmHg [facility] Hgb Blood Gas 10.9(L) 11.7 - 15.5 g/dL [facility] Oxyhemoglobin, Coox 25.1 % [facility] Carboxyhemoglo bin, Coox 0.3 % [facility] Comment: Nonsmokers: 0.5-1.5% COHB Smokers: Variable, but usually less than 10% Toxic: 20-30% COHB Lethal: Greater than 60% COHB Methemoglobin, Coox 1.4 <=1.5 % [facility] Source Coox Mixed Venous [facility] Blood 05/12/2023 12:3 0 AM EDT 05/12/2023 12:30 AM EDT Radha Hollins MD POINT [place] [address] * XR Chest One View (05/11/2023 11:45 [...] who have questions please contact the health medicare coordinator that requested your imaging first. ? [...] patients who have questions please contactthe health medicare coordinator that requested your imaging first. Radha Hollins MD IMG DX ORDERABLES * (ABNORMAL) Lactate, whole blood, send to lab ([facility]) (05/11/2023 7:40 PM EDT) Pathologist [facility] Lactate WB 4.8(Critic al) 0.5 - 2.2 mmol/L [facility] Comment:Called by: [facility], Read back by: Magdalena Baires, Date/Time:05/11/23 19:54. Blood 05/11/2023 7:40 PM EDT 05/11/2023 7:49 PM EDT Narrative Resulting Agency Comment Spec In Lab Radha Hollins MD CHEMISTRY ORDERABL ES [facility] [place] [address] * Urine culture (05/11/2023 7:22 PM EDT) Pathologist [facility] Urine Culture 50,000-99,000 cfu/ml Normal mucosal herman Susceptibilit y testing not routinely performed for Coagulase Negative Staphylococcu s species and other Gram Positive organisms from urine. [facility] Clean Catch Urine 05/11/2023 7:22 PM EDT 05/11/2023 8:50 PM EDT Narrative Resulting Agency Comment Spec In Lab Brody Kaplan APRN MICROBIOLOGY - GENE RAL ORDERABLES Performing Organization Address [facility] Co de Phone Number [facility] [place] [address] * (ABNORMAL) Urinalysis Microscopic Exam (05/11/2023 7:22 PM EDT) RBC, Urine 2 0 - 4 /HPF [facility] WBC, Urine >100(H) 0 - 5 /HPF [facility] Bacteria, Urine Occasional (A) None /HPF [facility] Squamous Epithelial Cells Raw Data, Urine 5(H) <=4 /HPF [facility] Hyaline Casts, Urine 3(H) 0 - 2 /LPF [facility] Clean Catch Urine 05/11/2023 7:22 PM EDT 05/11/2023 7:31 PM EDT Narrative Resulting Agency Comment Spec In Lab Brody Kaplan INSTRUCTOR [employer]ODUCT [employer]PECTION URINE ORDERABLES Performing Organization Address [facility] de Phone Number [facility] [place] [address] * (ABNORMAL) Urinalysis with reflex Culture (05/11/2023 7:22 PM EDT) Glucose, Urine Dipstick Negative Negative mg/dL [facility] Protein, Urine Dipstick Trace(A) Negative mg/dL [facility] Bilirubin, Urine Dipstick Negative Negative mg/dL [facility] Comment: Clinical correlation required for positive Urine Bilirubin results as false positive may occur with some drugs and drug related products. If a false positive is suspected a serum total bilirubin should be considered if clinically indicated. Urobilinogen, Urine Dipstick Normal Normal mg/dL [facility] pH, Urn (dipstick) 5.0 5.0 - 8.0 [facility] Blood, Urine Dipstick Trace(A) Negative mg/dL [facility] Ketone, Urine Dipstick Negative Negative mg/dL [facility] Nitrite, Urine Dipstick Negative Negative [facility] Leukocytes, Urine Dipstick Moderate(A) Negative mcL [facility] Appearance, Urine Dipstick Cloudy(A) Clear [facility] Specific [place] Urine Automated >=1.030(A) 1.005 - 1.030 [facility] Color, Urine Dipstick Yellow Yellow [facility] Reflex to Culture Yes [facility] Clean Catch Urine 05/11/2023 7:22 PM EDT 05/11/2023 7:31 PM EDT Narrative Resulting Agency Comment Spec In Lab Brody Kaplan APRN URINE ORDERABLES Performing Organization Address [facility]/ZIP Co de Phone Number [facility] [place] [address] * (ABNORMAL) pro-Brain Natriuretic Peptide (05/11/2023 7:11 PM EDT) NT-proBNP >35,000(H) <=124 pg/mL [facility] Blood 05/11/2023 7:11 PM EDT 05/11/2023 7:26 PM EDT Narrative Resulting Agency Comment Spec In Lab Radha Hollins MD CHEMISTRY ORDERABL ES Performing Organization Address [facility] Co de Phone Number [facility] [place] [address] * (ABNORMAL) Lactate, whole blood, send to lab ([facility]) (05/11/2023 2:47 PM EDT) Lactate WB 2.9(H) 0.5 - 2.2 mmol/L [facility] Blood 05/11/2023 2:47 PM EDT 05/11/2023 2:53 PM EDT Narrative Resulting Agency Comment Spec In Lab Juan Luis Gonzalez MD CHEMISTRY ORDERABLES Performing Organization Address [facility]/ZIP Co de Phone Number [facility] [place] [address] * (ABNORMAL) CT Angiogram Abdomen & Pelvis [...] who have questions please contact the health medicare coordinator that requested your imaging first. ? [...] who have questions please contact the health medicare coordinator that requested your imaging first. ? [...] 610 mm2 Circumference: 88 mm Calcification: Mild Ztncnyl-nx-gnncbjhi height: Left: 6.2 mm Right: 5.8 mm THORACIC AORTA Description: Normal course and caliber. ??Mild diffuse atherosclerotic changes. No acute aortopathy noted. Linoleum Printer dimensions: Aortic root: 27.6 mm Max ascending [...] 610 mm2 Circumference: 88 mm Calcification: Mild Ieiazqh-tk-qugysflw height: Left: 6.2 mm Right: 5.8 mm THORACIC AORTA Description: Normal course and caliber. Mild diffuse atheroscleroticchanges. No acute aortopathy noted. Linoleum Printer dimensions: Aortic root: 27.6 mm Max ascending [...] patients who have questions please contactthe health medicare coordinator that requested your imaging first. Antelmo Sharma MD [facility] CT ORDERABLES * (ABNORMAL) Lactate, whole blood, send to lab ([facility]) (05/11/2023 9:29 AM EDT) Lactate WB 3.1(H) 0.5 - 2.2 mmol/L [facility] Blood 05/11/2023 9:29 AM EDT 05/11/2023 9:38 AM EDT Narrative Resulting Agency Comment Spec In Lab Juan Luis Gonzalez MD CHEMISTRY ORDERABLES Performing Organization Address City/[facility]/ZIP Co de Phone Number [facility] [place] [address] * (ABNORMAL) Differential, Automated (05/11/2023 4:42 AM EDT) Neutrophil % 78.1 % [facility] Neutrophil Absolute 5.46 1.70 - 6.10 x10(3)/mc L [facility] Lymph % 10.6 % [facility] Lymphocytes Abs 0.7(L) 0.9 - 3.2 x10(3)/mc L [facility] Monocyte % 9.6 % [facility] Monocyte Abs 0.7 0.3 - 0.9 x10(3)/mc L [facility] Eos % 0.0 % [facility] Eosinophils Abs 0.0 0.0 - 0.4 x10(3)/mc L [facility] Basophil % 0.4 % [facility] Baso Absolute 0.0 0.0 - 0.1 x10(3)/mc L [facility] Immature Gran % 1.30 % [facility] Comment: Immature granulocytes(IG's)percentage and absolute count will include metamyelocytes, myelocytes, and promyelocytes. Blood smears from CBCs yielding IG's will be scanned manually for concordance. If this scan disagrees with the automated IG or if promyelocytes are noted, a manual differential will be performed. Immature Gran Absolute 0.09(H) 0.00 - 0.04 x10(3)/mc L [facility] Blood 05/11/2023 4:42 AM EDT 05/11/2023 4:49 AM EDT Narrative Resulting Agency Comment Spec In Lab Klaudia Reid MD HEMATOLOGY OR DERABLES [facility] [place] [address] * (ABNORMAL) Hemogram (05/11/2023 4:42 AM EDT) White Blood Cell 7.0 4.0 - 9.5 x10(3)/mc L [facility] Red Blood Cell 3.44(L) 4.00 - 5.21 x10(6)/mc L [facility] Hemoglobin 11.1(L) 11.7 - 15.5 g/dL [facility] Hematocrit 32.7(L) 35.7 - 45.8 % [facility] Mean Cell Volume 95.1(H) 82.6 - 94.4 fL [facility] Mean Cell Hemoglobin 32.3(H) 27.1 - 32.0 pg [facility] Mean Cell Hemoglobin Concentration 33.9 31.7 - 35.0 g/dL [facility] Platelet 165 145 - 357 x10(3)/mc L [facility] RDW Standard Deviation 43.1 37.0 - 46.0 fL [facility] RDW coefficient of variation 12.7 11.5 - 14.1 % [facility] Mean Platelet Volume 10.1 7.6 - 12.9 fL [facility] NRBC% auto 0.0 % [facility] NRBC Absolute 0.000 0.000 - 0.000 x10(3)/ L [facility] Blood 05/11/2023 4:42 AM EDT 05/11/2023 4:49 AM EDT Narrative Resulting Agency Comment Spec In Lab Klaudia Reid MD HEMATOLOGY OR DERABLES [facility] [place] [address] * Heparin (unfractionated) Level (05/11/2023 4:42 AM EDT) UF Heparin 0.46 IU/mL [facility] Comment: Heparin [...] Lab Radha Hollins MD HEMATOLOGY ORDERAB LES [facility] [place] [address] * (ABNORMAL) Comprehensive metabolic panel (non-fasting) (05/11/2023 4:42 AM EDT) Glucose 143 65 - 199 mg/dL [facility] Comment:Diabetes: >=200 mg/d L plus symptoms Blood Urea Nitrogen 42(H) 8 - 18 mg/dL [facility] Creatinine 1.24(H) 0.70 - 1.20 mg/dL [facility] Sodium 134(L) 135 - 145 mmol/L [facility] Potassium 4.6 3.5 - 5.0 mmol/L [facility] Comment: Please note: ??Patients with WBC >100,000 may have falsely elevated Potassium levels. ??For accurate Potassium quantification in these patients send serum separator tube (gold top) for subsequent determinations. ??Contact the Clinical Chemistry Laboratory if there are any questions. Chloride 99 98 - 107 mmol/L [facility] Carbon Dioxide 14(L) 22 - 31 mmol/L [facility] Anion Gap 21(H) 5 - 15 mmol/L [facility] Calcium 9.6 8.5 - 10.5 mg/dL [facility] Protein, Total 7.2 6.1 - 8.0 g/dL [facility] Albumin 3.7 3.2 - 5.2 g/dL [facility] Aspartate Aminotransferase 144(H) 0 - 30 unit/L [facility] Comment:result rechecked-ssc Alanine Aminotransferase 130(H) 0 - 30 unit/L [facility] Comment:result rechecked-ssc Alkaline Phosphatase 72 35 - 105 unit/L [facility] Bilirubin, Total 0.8 0.2 - 1.3 mg/dL [facility] Est Glomerular Filtration Rate 48(L) >=60 mL/min/1. 73 m?? [facility] Comment: This patient's estimated GFR [...] Lab Radha Hollins MD CHEMISTRY ORDERABL ES [facility] [place] [address] * EKG 12 Lead (05/10/2023 1:16 PM EDT) Ventricular rate 118 BPM MUSE SYSTEM Atrial Rate 118 BPM MUSE SYSTEM P-R Interval 152 ms MUSE SYSTEM QRS Duration 104 ms MUSE SYSTEM Q-T Interval 316 ms MUSE SYSTEM QTC Calculated (Bezet) 442 ms MUSE SYSTEM Calculated P Gilliam 29 degrees MUSE SYSTEM Calculated R Gilliam 18 degrees MUSE SYSTEM Calculated T Gilliam -173 degrees MUSE SYSTEM INTERPRETATION Sinus tachycardia Minimal voltage criteria for LVH, may be normal variant ( Ogden product ) Septal infarct , age undetermined ST & T wave abnormality, consider lateral ischemia Abnormal ECG When compared with ECG of 10-MAY-2023 07:59, Fusion complexes are no longer Present Premature ventricular complexes are no longer Present ST no longer depressed in Anterior leads Confirmed by MD Villareal Danette ([id number]) on 05/10/2023 8:47:46 PM MUSE SYSTEM 05/10/2023 1:16 PM EDT 05/10/2023 8:47 PM EDT Juan Luis Gonzalez MD ECG ORDERABLES MUSE SYSTEM * Lactate, whole blood, send to lab ([facility]) (05/10/2023 11:52 AM EDT) Lactate WB 1.8 0.5 - 2.2 mmol/L [facility] Blood 05/10/2023 11:5 2 AM EDT 05/10/2023 12:13 PM EDT Narrative Resulting Agency Comment Spec In Lab Juan Luis Gonzalez MD CHEMISTRY ORDERABLES Performing Organization Address City/[facility] Co de Phone Number [facility] [place] [address] * XR Chest One View (05/10/2023 11:16 [...] who have questions please contact the health medicare coordinator that requested your imaging first. ? [...] patients who have questions please contactthe health medicare coordinator that requested your imaging first. Juan Luis Gonzalez MD IMG DX ORDERABLES * EKG 12 Lead (05/10/2023 7:59 AM EDT) Ventricular rate 115 BPM MUSE SYSTEM Atrial Rate 115 BPM MUSE SYSTEM P-R Interval 142 ms MUSE SYSTEM QRS Duration 102 ms MUSE SYSTEM Q-T Interval 322 ms MUSE SYSTEM QTC Calculated (Bezet) 445 ms MUSE SYSTEM Calculated P Gilliam 36 degrees MUSE SYSTEM Calculated R Gilliam 28 degrees MUSE SYSTEM Calculated T Gilliam -119 degrees MUSE SYSTEM INTERPRETATION Sinus tachycardia with frequent Premature ventricular complexes and Fusion complexes ST & T wave abnormality, consider lateral ischemia Abnormal ECG When compared with ECG of 08-MAY-2023 15:51, No significant change was found I personally reviewed the tracing and edited the fellows interpretation Confirmed by fellow MD Anitha, Carissa ([id number]) on 05/11/2023 6:19:54 AM Confirmed by MD Tram, Chel ([id number]) on 05/11/2023 3:18:56 PM MUSE SYSTEM 05/10/2023 7:59 AM EDT 05/11/2023 3:18 PM EDT Radha Hollins MD ECG ORDERABLES MUSE SYSTEM * (ABNORMAL) Differential, Automated (05/10/2023 2:28 AM EDT) Neutrophil % 77.1 % [facility] Neutrophil Absolute 4.01 1.70 - 6.10 x10(3)/mc L [facility] Lymph % 14.0 % [facility] Lymphocytes Abs 0.7(L) 0.9 - 3.2 x10(3)/mc L [facility] Monocyte % 7.7 % [facility] Monocyte Abs 0.4 0.3 - 0.9 x10(3)/mc L [facility] Eos % 0.4 % [facility] Eosinophils Abs 0.0 0.0 - 0.4 x10(3)/mc L [facility] Basophil % 0.4 % [facility] Baso Absolute 0.0 0.0 - 0.1 x10(3)/mc L [facility] Immature Gran % 0.40 % [facility] Comment: Immature granulocytes(IG's)percentage and absolute count will include metamyelocytes, myelocytes, and promyelocytes. Blood smears from CBCs yielding IG's will be scanned manually for concordance. If this scan disagrees with the automated IG or if promyelocytes are noted, a manual differential will be performed. Immature Gran Absolute 0.02 0.00 - 0.04 x10(3)/mc L [facility] Blood 05/10/2023 2:28 AM EDT 05/10/2023 2:57 AM EDT Narrative Resulting Agency Comment Spec In Lab Klaudia Reid MD HEMATOLOGY OR DERABLES Performing Organization Address City/[facility] Hospital/ZIP Co de Phone Number [facility] [place] [address] * (ABNORMAL) Hemogram (05/10/2023 2:28 AM EDT) White Blood Cell 5.2 4.0 - 9.5 x10(3)/mc L [facility] Red Blood Cell 3.11(L) 4.00 - 5.21 x10(6)/mc L [facility] Hemoglobin 10.2(L) 11.7 - 15.5 g/dL [facility] Hematocrit 30.2(L) 35.7 - 45.8 % [facility] Mean Cell Volume 97.1(H) 82.6 - 94.4 fL [facility] Mean Cell Hemoglobin 32.8(H) 27.1 - 32.0 pg [facility] Mean Cell Hemoglobin Concentration 33.8 31.7 - 35.0 g/dL [facility] Platelet 151 145 - 357 x10(3)/mc L [facility] RDW Standard Deviation 44.9 37.0 - 46.0 fL [facility] RDW coefficient of variation 12.8 11.5 - 14.1 % [facility] Mean Platelet Volume 9.8 7.6 - 12.9 fL [facility] NRBC% auto 0.0 % [facility] NRBC Absolute 0.000 0.000 - 0.000 x10(3)/mc L [facility] Blood 05/10/2023 2:28 AM EDT 05/10/2023 2:57 AM EDT Narrative Resulting Agency Comment Spec In Lab Klaudia Reid MD HEMATOLOGY OR DERABLES Performing Organization Address City/[facility] Co de Phone Number [facility] [place] [address] * (ABNORMAL) Comprehensive metabolic panel (non-fasting) (05/10/2023 2:28 AM EDT) Glucose 100 65 - 199 mg/dL [facility] Comment:Diabetes: >=200 mg/d L plus symptoms Blood Urea Nitrogen 30(H) 8 - 18 mg/dL [facility] Creatinine 0.90 0.70 - 1.20 mg/dL [facility] Sodium 134(L) 135 - 145 mmol/L [facility] Potassium 4.1 3.5 - 5.0 mmol/L [facility] Comment: Please note: ??Patients with WBC >100,000 may have falsely elevated Potassium levels. ??For accurate Potassium quantification in these patients send serum separator tube (gold top) for subsequent determinations. ??Contact the Clinical Chemistry Laboratory if there are any questions. Chloride 102 98 - 107 mmol/L [facility] Carbon Dioxide 20(L) 22 - 31 mmol/L [facility] Anion Gap 12 5 - 15 mmol/L [facility] Calcium 9.3 8.5 - 10.5 mg/dL [facility] Protein, Total 6.4 6.1 - 8.0 g/dL [facility] Albumin 3.7 3.2 - 5.2 g/dL [facility] Aspartate Aminotransferase 24 0 - 30 unit/L [facility] Alanine Aminotransferase 14 0 - 30 unit/L [facility] Alkaline Phosphatase 70 35 - 105 unit/L [facility] Bilirubin, Total 0.5 0.2 - 1.3 mg/dL [facility] Est Glomerular Filtration Rate 70 >=60 mL/min/1. 73 m?? [facility] Comment: This patient's estimated GFR [...] ORDERABL ES Performing Organization Address [facility] [address] * Heparin (unfractionated) Level (05/10/2023 2:28 AM EDT) Pathologist [facility] Heparin 0.37 IU/mL [facility] [facility] Comment: Heparin (anti-Xa) levels [...] MD HEMATOLOGY ORDERAB LES Performing Organization Address [facility] [address] * (ABNORMAL) Differential, Automated (05/09/2023 4:00 AM EDT) Neutrophil % 81.7 % [facility] Neutrophil Absolute 5.26 1.70 - 6.10 x10(3)/mc L [facility] Lymph % 10.7 % [facility] Lymphocytes Abs 0.7(L) 0.9 - 3.2 x10(3)/mc L [facility] Monocyte % 6.5 % [facility] Monocyte Abs 0.4 0.3 - 0.9 x10(3)/mc L [facility] Eos % 0.5 % [facility] Eosinophils Abs 0.0 0.0 - 0.4 x10(3)/mc L [facility] Basophil % 0.3 % [facility] Baso Absolute 0.0 0.0 - 0.1 x10(3)/mc L [facility] Immature Gran % 0.30 % [facility] Comment: Immature granulocytes(IG's)percentage and absolute count will include metamyelocytes, myelocytes, and promyelocytes. Blood smears from CBCs yielding IG's will be scanned manually for concordance. If this scan disagrees with the automated IG or if promyelocytes are noted, a manual differential will be performed. Immature Gran Absolute 0.02 0.00 - 0.04 x10(3)/ L [facility] Blood 05/09/2023 4:00 AM EDT 05/09/2023 4:19 AM EDT Narrative Resulting Agency Comment Spec In Lab Klaudia Reid MD HEMATOLOGY OR DERABLES Performing Organization Address City/State/[place] Co de Phone Number [facility] [place] [address] * (ABNORMAL) Hemogram (05/09/2023 4:00 AM EDT) White Blood Cell 6.4 4.0 - 9.5 x10(3)/ L [facility] Red Blood Cell 3.15(L) 4.00 - 5.21 x10(6)/mc L [facility] Hemoglobin 10.2(L) 11.7 - 15.5 g/dL [facility] Hematocrit 30.3(L) 35.7 - 45.8 % [facility] Mean Cell Volume 96.2(H) 82.6 - 94.4 fL [facility] Mean Cell Hemoglobin 32.4(H) 27.1 - 32.0 pg [facility] Mean Cell Hemoglobin Concentration 33.7 31.7 - 35.0 g/dL [facility] Platelet 151 145 - 357 x10(3)/ L [facility] RDW Standard Deviation 44.7 37.0 - 46.0 fL [facility] RDW coefficient of variation 12.8 11.5 - 14.1 % [facility] Mean Platelet Volume 9.4 7.6 - 12.9 fL [facility] NRBC% auto 0.0 % [facility] NRBC Absolute 0.000 0.000 - 0.000 x10(3)/mc L [facility] Blood 05/09/2023 4:00 AM EDT 05/09/2023 4:19 AM EDT Narrative Resulting Agency Comment Spec In Lab Klaudia Reid MD HEMATOLOGY OR DERABLES Performing Organization Address [facility] Co de Phone Number [facility] [place] [address] * Heparin (unfractionated) Level (05/09/2023 4:00 AM EDT) UF Heparin 0.47 IU/mL [facility] Comment: Heparin (anti-Xa) levels should be [...] MD HEMATOLOGY ORDERAB LES Performing Organization Address [facility] Co de Phone Number [facility] [place] [address] * (ABNORMAL) Comprehensive metabolic panel (non-fasting) (05/09/2023 4:00 AM EDT) Glucose 108 65 - 199 mg/dL [facility] Comment:Diabetes: >=200 mg/d L plus symptoms Blood Urea Nitrogen 31(H) 8 - 18 mg/dL [facility] Creatinine 1.03 0.70 - 1.20 mg/dL [facility] Sodium 137 135 - 145 mmol/L [facility] Potassium 4.4 3.5 - 5.0 mmol/L [facility] Comment: Please note: ??Patients with WBC >100,000 may have falsely elevated Potassium levels. ??For accurate Potassium quantification in these patients send serum separator tube (gold top) for subsequent determinations. ??Contact the Clinical Chemistry Laboratory if there are any questions. Chloride 102 98 - 107 mmol/L [facility] Carbon Dioxide 20(L) 22 - 31 mmol/L [facility] Anion Gap 15 5 - 15 mmol/L [facility] Calcium 9.3 8.5 - 10.5 mg/dL [facility] Protein, Total 6.6 6.1 - 8.0 g/dL [facility] Albumin 3.8 3.2 - 5.2 g/dL [facility] Aspartate Aminotransferase 32(H) 0 - 30 unit/L [facility] Alanine Aminotransferase 18 0 - 30 unit/L [facility] Alkaline Phosphatase 78 35 - 105 unit/L [facility] Bilirubin, Total 0.5 0.2 - 1.3 mg/dL [facility] Est Glomerular Filtration Rate 60 >=60 mL/min/1. 73 m?? [facility] Comment: This patient's estimated GFR [...] Lab Radha Hollins MD CHEMISTRY ORDERABL ES [facility] [place] [address] * (ABNORMAL) pro-Brain Natriuretic Peptide (05/08/2023 4:00 PM EDT) NT-proBNP 25,503(H) <=124 pg/mL [facility] Blood Venous Draw / Unknown 05/08/2023 4:00 PM EDT 05/08/2023 4:25 PM EDT Narrative Resulting Agency Comment Spec In Lab Juan Luis Gonzalez MD CHEMISTRY ORDERABLES [facility] [place] [address] * Magnesium (05/08/2023 4:00 PM EDT) Pathologist [facility] Magnesium 0.82 0.69 - 1.07 mmol/L [facility] Blood 05/08/2023 4:00 PM EDT 05/08/2023 4:06 PM EDT Narrative Resulting Agency Comment Spec In Lab Enrique Chua MD CHEMISTRY ORDERABLES Performing Organization Address [facility]/ZIP Co de Phone Number [facility] [place] [address] * Potassium (05/08/2023 4:00 PM EDT) Pathologist [facility] Potassium 3.9 3.5 - 5.0 mmol/L [facility] Comment: Please note: [...] MD CHEMISTRY ORDERABL ES Performing Organization Address City/[facility]/ZIP Co de Phone Number [facility] [place] [address] * Heparin (unfractionated) Level (05/08/2023 4:00 PM EDT) UF Heparin 0.43 IU/mL [facility] Comment: Heparin [...] MD HEMATOLOGY ORDERAB LES Performing Organization Address City/State/[place] Co de Phone Number [facility] [place] [address] * EKG 12 Lead (05/08/2023 3:51 PM EDT) Ventricular rate 98 BPM MUSE SYSTEM Atrial Rate 98 BPM MUSE SYSTEM P-R Interval 150 ms MUSE SYSTEM QRS Duration 102 ms MUSE SYSTEM Q-T Interval 358 ms MUSE SYSTEM QTC Calculated (Bezet) 457 ms MUSE SYSTEM Calculated P Gilliam 38 degrees MUSE SYSTEM Calculated R Gilliam 48 degrees MUSE SYSTEM Calculated T Gilliam -112 degrees MUSE SYSTEM INTERPRETATION Sinus rhythm with frequent and consecutive Premature ventricular and fusion complexes Septal infarct , age undetermined ST & T wave abnormality, consider anterolateral ischemia Abnormal ECG When compared with ECG of 09-NOV-2022 11:17, T wave inversion now evident in Anterolateral leads Confirmed by MD Harshil, Enrique Bell ([id number]) on 05/10/2023 8:11:46 AM MUSE SYSTEM 05/08/2023 3:51 PM EDT 05/10/2023 8:11 AM EDT Radha Hollins MD ECG ORDERABLES MUSE SYSTEM * (ABNORMAL) Differential, Automated (05/08/2023 11:38 AM EDT) Neutrophil % 71.3 % [facility] Neutrophil Absolute 2.91 1.70 - 6.10 x10(3)/mc L [facility] Lymph % 19.1 % [facility] Lymphocytes Abs 0.8(L) 0.9 - 3.2 x10(3)/mc L [facility] Monocyte % 9.0 % [facility] Monocyte Abs 0.4 0.3 - 0.9 x10(3)/mc L [facility] Eos % 0.2 % [facility] Eosinophils Abs 0.0 0.0 - 0.4 x10(3)/mc L [facility] Basophil % 0.2 % [facility] Baso Absolute 0.0 0.0 - 0.1 x10(3)/mc L [facility] Immature Gran % 0.20 % [facility] Comment: Immature granulocytes(IG's)percentage and absolute count will include metamyelocytes, myelocytes, and promyelocytes. Blood smears from CBCs yielding IG's will be scanned manually for concordance. If this scan disagrees with the automated IG or if promyelocytes are noted, a manual differential will be performed. Immature Gran Absolute 0.01 0.00 - 0.04 x10(3)/mc L [facility] Blood 05/08/2023 11:3 8 AM EDT 05/08/2023 11:44 AM EDT Narrative Resulting Agency Comment Spec In Lab Lincoln Sal MD HEMATOLOGY ORDERA BLES [facility] [place] [address] * (ABNORMAL) Hemogram (05/08/2023 11:38 AM EDT) White Blood Cell 4.1 4.0 - 9.5 x10(3)/mc L [facility] Red Blood Cell 3.05(L) 4.00 - 5.21 x10(6)/mc L [facility] Hemoglobin 10.2(L) 11.7 - 15.5 g/dL [facility] Hematocrit 29.6(L) 35.7 - 45.8 % [facility] Mean Cell Volume 97.0(H) 82.6 - 94.4 fL [facility] Mean Cell Hemoglobin 33.4(H) 27.1 - 32.0 pg [facility] Mean Cell Hemoglobin Concentration 34.5 31.7 - 35.0 g/dL [facility] Platelet 136(L) 145 - 357 x10(3)/mc L [facility] RDW Standard Deviation 44.3 37.0 - 46.0 fL [facility] RDW coefficient of variation 12.6 11.5 - 14.1 % [facility] Mean Platelet Volume 9.4 7.6 - 12.9 fL [facility] NRBC% auto 0.0 % [facility] NRBC Absolute 0.000 0.000 - 0.000 x10(3)/[facility] Blood 05/08/2023 11:3 8 AM EDT 05/08/2023 11:44 AM EDT Narrative Resulting Agency Comment Spec In Lab Lincoln Sal MD HEMATOLOGY ORDERA BLES Performing Organization Address City/[facility] Co de Phone Number [facility] [place] [address] * TSH (05/08/2023 11:38 AM EDT) Thyroid Stimulating Hormone 1.27 0.27 - 4.20 mcIU/mL [facility] Comment: Reference Interval (mcIU/mL): Females: ??First Trimester: 0.23-3.88 ??Second Trimester: 0.22-3.90 ??Third Trimester: 0.44-4.66 Blood 05/08/2023 11:3 8 AM EDT 05/08/2023 11:44 AM EDT Narrative Resulting Agency Comment Spec In Lab Enrique Chua MD CHEMISTRY ORDERABLES [facility] [place] [address] * (ABNORMAL) Phosphorus (05/08/2023 11:38 AM EDT) Phosphorus 4.7(H) 2.5 - 4.5 mg/dL [facility] Blood 05/08/2023 11:3 8 AM EDT 05/08/2023 11:44 AM EDT Narrative Resulting Agency Comment Spec In Lab Enrique Chua MD CHEMISTRY ORDERABLES Performing Organization Address City/[facility] Co de Phone Number [facility] [place] [address] * Magnesium (05/08/2023 11:38 AM EDT) Magnesium 0.76 0.69 - 1.07 mmol/L [facility] Blood 05/08/2023 11:3 8 AM EDT 05/08/2023 11:44 AM EDT Narrative Resulting Agency Comment Spec In Lab Enrique Chua MD CHEMISTRY ORDERABLES Performing Organization Address City/[facility] Co de Phone Number [facility] [place] [address] * (ABNORMAL) Basic Metabolic Panel (non-fasting) (05/08/2023 11:38 AM EDT) Glucose 97 65 - 199 mg/dL [facility] Comment:Diabetes: >=200 mg/d L plus symptoms Blood Urea Nitrogen 27(H) 8 - 18 mg/dL [facility] Creatinine 1.02 0.70 - 1.20 mg/dL [facility] Sodium 139 135 - 145 mmol/L [facility] Potassium 4.2 3.5 - 5.0 mmol/L [facility] Comment: Please note: ??Patients with WBC >100,000 may have falsely elevated Potassium levels. ??For accurate Potassium quantification in these patients send serum separator tube (gold top) for subsequent determinations. ??Contact the Clinical Chemistry Laboratory if there are any questions. Chloride 105 98 - 107 mmol/L [facility] Carbon Dioxide 20(L) 22 - 31 mmol/L [facility] Anion Gap 14 5 - 15 mmol/L [facility] Calcium 9.4 8.5 - 10.5 mg/dL [facility] Est Glomerular Filtration Rate 60 >=60 mL/min/1. 73 m?? [facility] Comment: This patient's estimated GFR [...] In Lab Enrique Chua MD CHEMISTRY ORDERABLES [facility] [place] [address] * ECHO COMPLETE (05/08/2023 11:02 AM EDT) EF 25 HEARTLAB SYSTEM Anatomical Region Laterality Modality Cardiac Other 05/08/2023 10:0 3 AM EDT Narrative 05/08/2023 11:51 AM EDT ? Echocardiogram Report Name: PURNIMA THACKER ?Study Date: 05/08/2023 10:03 AMBP: 92/64 mmHg ? Patient Location: [facility]^CV29^A : 1955 ? Height: 155 cm ? Account: [id number] Age: 67 yrs ? Weight: 78 kg [...] worsening stenosis. Mitral regurgitation is similar. Procedure Complete-[id number]. Satisfactory quality. There is normal sinus rhythm. [...] Study Date: 0:03 AMBP: 92/64 mmHg Patient Location:[facility]^CV29^A : 1955 Height: 155 cm Account: [id number] Age: 67 yrs Weight: 78 kg Gender: [...] suggestsworsening stenosis. Mitral regurgitation is similar. Procedure Complete-[id number]. Satisfactory quality. There is normal sinus rhythm. 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 Rate/Dose Verify 05/17/2023 8:00 [...] Gabino Calhoun RN) 0832 (Given - Provider: Kai Gallego RN) 0827 (Given - Provider: Kia [...] Reason: Patient/family refused)0930 (Not Given - Provider: iKa Gallego RN - Reason: See comment) spironolactone [...] post-op day 1 in the AM Give AR if unable to take PO, Routine Group [...] Routine documented in this encounter Care Teams Certification And Selection Specialist Relationship Specialty Start Date End Date Magdalena Acosta MD [address] [place] [address] PCP - General Family Medicine 02/05/23 documented as of this encounter
--- OUTSIDE RECORDS SUMMARY | 2024-03-23 14:00 | XMS_ITS | Encounter Summary ---
[place] [address] Care Team Providers Care Photovoltaic Subcontractor Name Role Phone Magdalena Acosta MD Primary Care Provider [phone] Encounter Details Date Type Department Care Team [...] PM EDT Office Visit Dermatology at [place] [address] [place] [address] Marek Bonilla MD [address], [facility] [facility] D[facility]MATOLOGY [place], [place] [id number] documented as of this encounter Visit Diagnoses Not on filedocumented in this encounter Care Teams Photovoltaic Subcontractor Relationship Specialty Start Date End Date Magdalena Acosta MD [address] [place] [address] PCP - General Family Medicine 02/05/23 documented as of this encounter
--- OUTSIDE RECORDS SUMMARY | 2024-03-23 14:01 | XMS_ITS | Encounter Summary ---
[facility] [place] [address] Care Team Providers Care Tank Builder Name Role Phone Magdalena Acosta MD Primary Care Provider [phone] Reason for Visit * Auth/Cert (Routine) Specialty Diagnoses / Procedures Referred By Contac t Referred To Contact Diagnoses Symptomatic severe aortic stenosis with low ejection fraction NSTEMI, CHF Enrique Chua MD [facility] [place] [address] [facility] Referral ID Status Reason Start Date Expiration Date Visits Re quested Visits Authorized [id number] 1 1 Encounter Details Date Type Department Care Team (Late st Contact Info) Description 05/12/2023 2:50 PM EDT - 05/12/2023 3:50 PM EDT [place] [address] Antelmo Sharma MD [facility] [place] [address] CARDIAC CATHETERIZATION Social History Tobacco Use Types [...] Patient Age: 67 y.o. Birthdate: 1955 Language: Scottish Race: White Ethnicity: Not nor Admit Date: 05/08/2023 Discharge Date: 05/22/2023 Attending Physician: Alirio Hudson MD Follow-up Recommendations for Providers: Please continue routine management of cardiovascular risk factors including blood pressure, lipids,glucose, etc. Please note any medication changes. Patient to follow up with PCP, Magdalena Acosta MD, or Primary Machine Hostler, Avis Mejia MD, in ~ 7-10 days. Patient to follow up with Aircraft Skin Burnisher, Dr. Antelmo Sharma, in 2 weeks with an EKG, Echo, CBC, and CMP. Patient to follow up with Nephrology, their office to arrange. Lxxa-Myyfmj-zd interval: After initial 30 day follow-up appointment , all TAVR patients will follow-up again in one year with an echo. 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 Secondary Diagnoses: Active Hospital Problems Diagnosis S/P TAVR (transcatheter aortic valve replacement) Cardiogenic shock Symptomatic severe aortic stenosis with low ejection fraction Mild coronary artery disease by [facility] 11/09/2022 Heart failure with reduced [...] Right 05/18/2023 Laure Ricks PA [facility] INTERVENTIONL RAD PRG CATH PLMT LEFT HEART CATH & ARTS W/INJ & ANGIO IMG S&I N/A 11/09/2022 CORONARY ANGIOGRAPHY; W [facility],POSSIBLE PCI (WRVU 5.6) performed by Mario Alberto Escobedo MD at [facility] CATH LABS PRG COMBINED RIGHT & LEFT HEART CATH W/INJ L VENTRICULOGRAPHY, IMG S&I N/A 05/12/2023 COMBINED RIGHT & LEFT HEART CATH,INC INJ FOR L VENTRICULOGRAPHY (WRVU 5.99) performed by Antelmo Sharma MD at [facility] CATH LABS PRO AORTOPLAS FOR SUPRAVALV STEN N/A 09/21/2016 @AORTOPLASTY FOR SUPRAVALVULAR STENOSIS (WRVU 29.33) performed by Alirio Hudson MD at [facility] MAIN OR PRO REPLACE AORTIC VALVE (TAVR/FEDERICO)PERC FEMORAL ARTERY APPROACH 05/12/2023 @TRANSCATHETER AORTIC VALVE REPLACEMENT (TAVR), PERCUTANEOUS FEMORAL (WRVU 22.47) performed by Alirio Hudson MD at [facility] CATH LABS PRO REPLACEMENT PROSTHETIC AORTIC VALVE OPEN W CARDIOPULMONARY BYPASS HOMOGRF/STENT N/A 09/21/2016 @REPLACE AORTIC VALVE, OPEN, W\CPB, W\PROSTHETIC VALVE (WRVU 41.32) performed by Alirio Hudson MD at [facility] MAIN OR Prior To Admission Medications [...] Major Procedures/Operations: 05/12/23: Successful right transfemoral TAVR Ukppj-xe-Lbxfa with a 23 mm Lai 3 THV. Left coronary protection with left main MINNA. Hospital Course: #Severe prosthetic s/p valve in valve TF TAVR #Low coronary heights s/p left main stent for coronary protection #Type 2 NSTEMI, present on arrival, resolved #Acute decompensated HFrEF #Cardiogenic shock #EVANS / Cardiorenal syndrome Purnima Thacker was admitted to [facility] on 05/08/2023 via the Cardiology Service with [...] she was brought to the clinical laboratory medical director the following morning where Drs. Alirio Hudson [...] if you have questions. Please call your Aircraft Skin Burnisher's office if you have any discharge or drainage from your procedural sites. Your Aircraft Skin Burnisher, Dr. Antelmo Sharma and/or the Adjustment Clerk may be reached at . Antibiotic prophylaxis: You will need to take antibiotics prior to many invasive tests and treatments, such as dental cleaning, which should be done every 6 months. Your primary care physician or your dentist can prescribe this medication. Please refer to the card with the [place] [employer] Guidelines for more information. You have been provided with a copy of this card. Please refer to the [place] [employer] Guidelines for more information. Good [...] friends, go to a movie, go to scientology, etc. Heavy activities: No hunting, skiing, jogging, [...] should resume a low fat, low cholesterol, [place] [employer] Diet Driving: No restrictions. Shower/Bath: You may shower daily. No baths, soaking, or swimming for the first week. Wound care: Wash the sites daily with soap and rinse well, pat dry. Assess for any signs of infection such as increased redness, pain, warmth or drainage. Please call your electronic parts salesperson's office if you have any discharge or drainage from your procedural sites. If there is a lot of swelling, apply mamta wraps during the day and remove at bedtime. Elevate your legs when you are sitting. Home oxygen therapy: N/A Follow up appointments: Please schedule a follow-up appointment with your PCP, Magdalena Acosta MD, or Primary Machine Hostler in ~ 7-10 days. You have a follow-up appointment with your Aircraft Skin Burnisher, Dr. Antelmo Sharma, in 2 weeks with an EKG, Echo, and labs prior to your appointment. You will need follow-up with Nephrology, their office will arrange. Gvie-Uvdpzh-ra interval: After initial 30 day follow-up appointment , all TAVR patients will follow-up again in one year with an echo. Cardiac Rehabilitation: Purnima Thacker was seen today regarding participation in the outpatient Phase 2 Cardiac Rehabilitation at [facility]. The patient agrees to a referral to this program. The referral will be sent at discharge and the patient should be contacted by the Program within 1- 2 weeks from discharge. Future Appointments and Orders Future Appointments and Orders Future Appointments Provider Department Dept Phone 07/29/2023 11:00 AM Magdalena Peralta MD Rheumatology at [facility] Arrive at: Instructional Consultant Area 5C [phone] 02/11/2024 2:00 PM Marek Bonilla MD Dermatology at [place] Arrive at: [facility] [address] [phone] Future Orders Complete By Expires Type and Screen Future Surgery, [facility] SAME DAY PROGRAM ONLY) [[id number] Custom] 05/11/2023 Process Instructions: This test is intended ONLY for patients with upcoming surgery for testing prior to the day of surgery obtained through the same day program (4V or SDP). For ALL OTHER PATIENTS, order a Type and Screen (IZJ565) This order includes the physician order for an ABO Recheck if requested by the Blood Bank. Scheduling Instructions: Comments: Questions: Date of surgery: CBC (with Diff) [VSZ436 Custom] 06/05/2023 12/05/2023 Process Instructions: INCLUDES: WBC, RBC, Hgb, Hct, Platelets, RBC Indices and Differential Scheduling Instructions: Comments: Questions: Comprehensive metabolic panel (non-fasting) [LAB17 Custom] 06/05/2023 08/20/2023 Process Instructions: INCLUDES: Calcium, T Protein, Albumin, AST, ALT, Alk Phos, T Bili, BUN, Creat, GFR, Glucose, Lytes. Scheduling Instructions: Comments: Questions: Echocardiogram Transthoracic [78315 CPT(R)] 06/05/2023 12/05/2023 Process Instructions: Scheduling Instructions: Questions: Where will study be performed?: [facility] Clinics Does the patient have Congenital Heart Disease?: Does patient require sedation?: GA rationale: EKG 12 Lead [61300 CPT(R)] 06/05/2023 12/05/2023 Process Instructions: Scheduling Instructions: Questions: Which location will this be performed?: [place] Is a rhythm strip needed?: No [facility] [EQ161 Custom] As directed Process Instructions: Scheduling Instructions: Questions: Device Needed: WALKER (E0143) Patient Height (cm): 154.9 cm (5' 0.98) Patient Weight: 75.4 kg (166 lb 3.2 oz) Diagnosis: Unsteady gait when walking Referral to Cardiac Rehab [GEO783 Custom] As directed Process Instructions: If no progress note charted, please enter Clinical details in comments. Scheduling Instructions: Questions: My question or request is: s/p TAVR. Cardiac rehab at [facility]. Referral to Home Health [REF34 Custom] As directed Process Instructions: If no progress note charted, please enter Clinical details in comments. Scheduling Instructions: Comments: DOCUMENTATION FOR VNA SERVICES PATIENT'S LOCATION: Purnima Thacker [address] [place] [phone] (home) Efficiency Analyst's Name: Irineo and brother Raymond In discussion with the attending physician, it is certified that this patient is under his/her careand that MD, or an INSPECTOR EYEGLASS FRAMES, DATA TECHNICAL LEAD, or PA who is working directly with him/her, had a ukgy-jp-mlvo encounter that meets the physician fwwa-dc-andc encounter requirements with this patient on 05/22/2023. [...] for managing ADLs. HOME HEALTH CARE AGENCY: [facility]. [address] [facility] [address] PHONE: [phone] FAX: [phone] Start of care: Ideally 24-48 hours after [...] Magdalena Acosta MD [address] / [facility] [id number] All VNA agencies which cover the area of patient's residence have been reviewed, either verbally joao writing, and patient has chosen the home health care agency noted. Questions: Disciplines Requested: Physical Therapy Occupational Therapy Discharge References/Attachments None Arrangements for VNA/home care: As above. (delete if no VNA) Signed: EKATERINA NAVARRETE [facility] Section of Cardiac Surgery Date: 05/22/2023 CC: Magdalena Acosta MD HyshamMario Alberto maxwell MD [address] [place] [address] documented in this encounter Discharge Instructions * Patient Instructions* Vinod Juárez PA - 05/22/2023 9:32 AM EDT TAVR Discharge Instructions: Call your doctor if: You have a fever of greater than 101 degrees, shaking chills, if you develop redness or drainage from your procedure sites, or if you have questions. Please call your Aircraft Skin Burnisher's office if you have any discharge or drainage from your procedural sites. Your Aircraft Skin Burnisher, Dr. Antelmo Sharma and/or the Adjustment Clerk may be reached at . Antibiotic prophylaxis: You will need to take antibiotics prior to many invasive tests and treatments, such as dental cleaning, which should be done every 6 months. Your primary care physician or your dentist can prescribe this medication. Please refer to the card with the [place] [employer] Guidelines for more information. You have been provided with a copy of this card. Please refer to the [place] [employer] Guidelines for more information. Good [...] friends, go to a movie, go to scientology, etc. Heavy activities: No hunting, skiing, jogging, [...] should resume a low fat, low cholesterol, [place] [employer] Diet Driving: No restrictions. Shower/Bath: You may shower daily. No baths, soaking, or swimming for the first week. Wound care: Wash the sites daily with soap and rinse well, pat dry. Assess for any signs of infection such as increased redness, pain, warmth or drainage. Please call your electronic parts salesperson's office if you have any discharge or drainage from your procedural sites. If there is a lot of swelling, apply mamta wraps during the day and remove at bedtime. Elevate your legs when you are sitting. Home oxygen therapy: N/A Follow up appointments: Please schedule a follow-up appointment with your PCP, Magdalena Acosta MD, or Primary Machine Hostler in ~ 7-10 days. You have a follow-up appointment with your Aircraft Skin Burnisher, Dr. Antelmo Sharma, in 2 weeks with an EKG, Echo, and labs prior to your appointment. You will need follow-up with Nephrology, their office will arrange. Nexn-Eortfy-ib interval: After initial 30 day follow-up appointment , all TAVR patients will follow-up again in one year with an echo. Cardiac Rehabilitation: Purnima Gallegol was seen today regarding participation in the outpatient Phase 2 Cardiac Rehabilitation at [facility]. The patient agrees to a referral [...] ins ( tef) Haven Ba, PT Pager: [phone] Physical Therapy Inpatient Rehabilitation Department * Nico [...] 0600 and on the weekends please page [phone]. * Jory Paniagua - 05/20/2023 3:52 PM [...] vomiting Last Bowel Movement: 05/20/23 Jory Paniagua Aviation Warfare Systems Operator * Tong Mike, OT - 05/20/2023 [...] Right 05/18/2023 Laure Ricks PA [facility] INTERVENTIONL RAD PRG CATH PLMT LEFT HEART CATH & ARTS W/INJ & ANGIO IMG S&I N/A 11/09/2022 CORONARY ANGIOGRAPHY; W [facility],POSSIBLE PCI (WRVU 5.6) performed by Mario Alberto Escobedo MD at [facility] CATH LABS PRG COMBINED RIGHT & LEFT HEART CATH W/INJ L VENTRICULOGRAPHY, IMG S&I N/A 05/12/2023 COMBINED RIGHT & LEFT HEART CATH,INC INJ FOR L VENTRICULOGRAPHY (WRVU 5.99) performed by Antelmo Sharma MD at [facility] CATH LABS PRO AORTOPLAS FOR SUPRAVALV STEN N/A 09/21/2016 @AORTOPLASTY FOR SUPRAVALVULAR STENOSIS (WRVU 29.33) performed by Alirio Hudson MD at [facility] MAIN OR PRO REPLACE AORTIC VALVE (TAVR/FEDERICO)PERC FEMORAL ARTERY APPROACH 05/12/2023 @TRANSCATHETER AORTIC VALVE REPLACEMENT (TAVR), PERCUTANEOUS FEMORAL (WRVU 22.47) performed by Alirio Hudson MD at [facility] CATH LABS PRO REPLACEMENT PROSTHETIC AORTIC VALVE OPEN W CARDIOPULMONARY BYPASS HOMOGRF/STENT N/A 09/21/2016 @REPLACE AORTIC VALVE, OPEN, W\CPB, W\PROSTHETIC VALVE (WRVU 41.32) performed by Alirio Hudson MD at [facility] MAIN OR Social History: Patient lives alone. Home Setup: Pt lives on one level with tub shower and three steps to enter. DME: none used HABITAT BIOLOGIST Baseline ADL/Mobility: Independent with ADLs and IADLs. [...] awareness: WFL Vision & Perception: corrective lenses multimedia manager Communication: WFL Range of motion, strength, coordination: [...] Discharge planning. Total Minutes, Occupational Therapy: 28 ([id number]) OT Evaluation Code Rationale: Diagnosis & Pertinent Co-Morbidities affecting Plan of Care: see PMHx Occupational Profile & Client History: Brief Expanded Extensive x Assessment of Occupational Performance: 1-3 performance deficits 3-5 performance deficits x 5 + performance deficits Clinical Decision Making: Low Moderate High x Clinical decision making of moderate complexity using standardized patient assessment instrument and measurable assessment of functional outcome. Pager: [phone] TONG MIKE OT 05/20/2023 Occupational Therapy Rehabilitation [...] 0600 and on the weekends please page [phone]. * Rylie Rodriguez MD - 05/19/2023 3:59 [...] and plan. Cynthia Blackburn MD Nephrology Pager: [phone] * Diana Espino - 05/19/2023 1:49 PM EDT Pig Farmer Encounter Note Patient Name: Purnima Thacker : [id number] MR#: [id number] Admit Date: 05/08/2023 9:14 AM Hospital Day [...] as stated. Total Minutes, Physical Therapy: 38 ([id number]) Henrik Navarrete PTA Pager: [phone] Physical Therapy Inpatient Rehabilitation Department * Nico [...] 0600 and on the weekends please page [phone]. * Laure Ricks PA - 05/19/2023 7:56 [...] Ricks PA-C Interventional Radiology IR Team Pager [phone] * Consuelo Espinoza RN - 05/18/2023 4:13 PM EDT ANGIO NURSING DATABASE Name: Purnima Thacker Date of : 1955 AGE: 67 y.o. Address: [address] [place] [address] (home) Mobile: No relevant phone numbers on [...] Mild coronary artery disease by [facility] 11/09/2022 I25.10 Heart failure with [...] and plan. Cynthia Blackburn MD Nephrology Pager: [phone] * Magdalena Puri, VETERANS SERVICES SPECIALIST - 05/18/2023 10:51 AM EDT Images from the original note were not included. [facility] [place] [address] [address] STRUCTURAL HEART DISEASE CONSULTATION NOTE PRIMARY CARE [...] stenosis. She is now status post TAVR Szfve-lb-Uodlg with a 23 mm Lai 3 THV 05/12/[address] Sharma. Preliminary findings: Successful right transfemoral TAVR Gefyv-nq-Nwfdp with a 23 mm Lai 3 THV. [...] ejection fraction Mild coronary artery disease by [facility] 11/09/2022 Heart failure with reduced [...] tablet 81 mg 81 mg Oral Daily JacksonMara ernandez APRN 81 mg at 05/18/23 0826 ondansetron (pf) (Zofran) (2 mg/mL) injection 4 mg 4 mg Intravenous Q8H PRN JacksonMara ernandez APRN4 mg at 05/12/23 0736 pantoprazole EC (Protonix) tablet 40 mg 40 mg Oral Daily MaggieMara ernandez APRN 40 mg at 05/18/23 0826 Or pantoprazole (Protonix) injection 40 mg 40 mg Intravenous Daily JacksonMara ernandez APRN 40 mg at 05/12/23 1004 senna-docusate (Pericolace) 8.6-50 mg per tablet 2 tablet 2 tablet Oral Daily MaggieMara ernandez APRN 2 tablet at 05/16/232111 bisacodyL (Dulcolax) suppository 10 mg 10 mg Rectal Daily PRN MaggieMara ernandez APRN melatonin tablet 6 mg 6 mg Oral Nightly PRN JacksonMara ernandez APRN 6 mg at 05/17/232024 influenza vaccine adjuvanted (Adult 65 Yrs +) (FluAD Quad) (PF) IM injection 0.5 mL 0.5 mL Intramuscular Prior to discharge JacksonMara ernandez APRN FAMILY HISTORY: No family history [...] stenosis. She is now status post TAVR Rmxex-if-Bbpfh with a 23 mm Lai 3 THV [...] Magdalena Puri APRN Structural Heart Team Pager [phone] Team Office Please see addendum by Dr. Sharma for final plan and recommendations Associated attestation - Antelmo Sharma MD - 05/19/2023 10:52 PM EDT I have reviewed Magdalena Puri APRN's above history and I agree with the details as written. The assessment and plan were formulated in discussion with me and I agree with them as documented. Antelmo Sharma MD Pager [phone] * Nico Palacios PA - 05/18/2023 8:13 [...] 0600 and on the weekends please page [phone]. * Loli Hernandez, PT - 05/17/2023 5:27 [...] plan as stated. Time IN / OUT: 3158-1630 Total Minutes, Physical Therapy: 54 Billing Code: te-sx2, te-f, angely HERNANDEZ PT Pager: [phone] Physical Therapy Inpatient Rehabilitation Department * Cynthia [...] Well controlled. Cynthia Blackburn MD Nephrology Pager: [phone] * Mara Serrano, VETERANS SERVICES SPECIALIST - 05/17/2023 8:26 AM EDT Cardiac Surgery [...] 0600 and on the weekends please page [phone]. * Guerda Del Valle C - 05/16/2023 10:44 AM EDT Nutrition Services Note - Low Nutrition Acuity Purnima Thacker is a 67 y.o. female Reason for intervention: hospital day 9 Nutrition Plan: Continue diet order Encourage good PO Lasix and Zofran noted Added special serve: open containers Monitor weight Patient scheduled for a hospital day 9 nutrition evaluation. Cylinder Press Operator met with pt at bedside. Pt reports that her appetite and PO has much improved since admission. Denies nausea/vomiting or trouble chewing/swallowing. Cylinder Press Operator provided snack list but pt not interested in adding snacks at this time. Her only concern was that she is worried that she will eat too much which will cause too much pressure in her stomach. Cylinder Press Operator assured pt and suggested eating smaller [...] Last Bowel Movement: 05/10/23 Guerda Del Valle Aviation Warfare Systems Operator * Vinod Juárez PA - 05/16/2023 [...] 0600 and on the weekends please page [phone]. * Michael Jeffers MD - 05/16/2023 8:11 AM EDT Images from the original note were not included. Hypertension-Nephrology Inpatient Follow-up Purnima Thacker [id number] 1955 ID: 67 y.o. old female seen [...] IRONSAT 12 (L) 05/16/2023 SFOLATE >20.0 07/03/2022 [id number] 07/03/2022 Lab Results Component Value Date [...] Dr. Ayoub. Please contact me at phone: [phone] or pager: [phone] with any questions. Michael Jeffers MD Nephrology [...] -Nephrology consulted, labs and renal US ordered -Haskell removed, ambulated around the unit -bilateral pleural [...] 0600 and on the weekends please page [phone]. * Hortencia Cody MD - 05/15/2023 2:07 [...] not included. Hypertension-Nephrology Inpatient Follow-up Purnima Thacker [id number] 1955 ID: 67 y.o. old female seen [...] HGB 7.8 (L) 05/13/2023 SFOLATE >20.0 07/03/2022 [id number] 07/03/2022 Lab Results Component Value Date [...] Dr. Ayoub. Please contact me at phone: [phone] or pager: [phone] with any questions. Michael Jeffers MD Nephrology [...] last 720 hours. T/L/D Art ETT CVL [place] ASSESSMENT, MANAGEMENT, and DECISION MAKIN y.o. female [...] outlined inthis evaluation. HAVEN BA, PT Pager: [phone] Physical Therapy Inpatient Rehabilitation Department Time IN / OUT: 5319-1957 Total time: Total Minutes, Physical Therapy: 30 [...] 0600 and on the weekends please page [phone]. * Antelmo Sharma MD - 05/14/2023 7:56 AM EDT Images from the original note were not included. Former[facility] [place] [address] [address] STRUCTURAL HEART DISEASE CONSULTATION NOTE PRIMARY CARE [...] stenosis. She is now status post TAVR Kuxhx-zd-Whgdx with a 23 mm Lai 3 THV 05/12/[address] Sharma. Preliminary findings: Successful right transfemoral TAVR Zxelt-gv-Yrzkj with a 23 mm Lai 3 THV. [...] perforation. Interval Events: - 05/12 Transferred to [facility] post- TAVR for pressor/inotropic support [...] ejection fraction Mild coronary artery disease by [facility] 11/09/2022 Heart failure with reduced [...] 4 mg 4 mg Intravenous Q8H PRN oLrri Chinchilla PA 4 mg at 05/12/23 0736 [...] stenosis. She is now status post TAVR Uywdh-co-Snuah with a 23 mm Lai 3 THV 05/12/[address] Sharma. Janet TAVR case notable for coronary LAD protective MINNA. Status post TAVR, the patient was transferred to [facility] for pressor and inotropic support. Pressors weaned overnight 05/12. Cardiac indices by thermodilution remained >3 with continued Milrinone 0.125 mcg/kg/min prior to PAC removal. EKG todayNSR with stable TX/QRS intervals. Hemoglobin slowly down-trending (8.2-> 7.8-> 7.2). [...] Brody Kaplan APRN Structural Heart Team Pager [phone] Team Office Please see addendum by Dr. [...] exposure. Nephrology consultationtoday. Antelmo Sharma MD Pager [phone] * Antelmo Cardenas RN - 05/14/2023 5:18 AM EDT Pt AOx4, complaining of mild/moderate generalized pain (states her Meloxicam is effective at home) currently refusing prn oxycodone. NAEON, hemodynamically stable on Milrinone, Maps >65, ST in [id number]'s down to NSR with frequent multifocal PVC's. [...] included. [facility] [place] [address] [address] STRUCTURAL HEART DISEASE PROGRESS NOTE PRIMARY CARE [...] stenosis. She is now status post TAVR Dvobe-yw-Tipir with a 23 mm Lai 3 THV 05/12/[address] Sharma. Preliminary findings: Successful right transfemoral TAVR Ufkhl-jl-Piegx with a 23 mm Lai 3 THV. [...] ejection fraction Mild coronary artery disease by [facility] 11/09/2022 Heart failure with reduced [...] 200 mL infusion 0-15 mg/hr Intravenous Continuous Lrori Chinchilla PA atorvastatin (Lipitor) tablet 10 mg [...] stenosis. She is now status post TAVR Kvhep-cf-Owtxn with a 23 mm Lai 3 THV 05/12/[address] Sharma. Janet TAVR case notable for coronary LAD protective MINNA. Status post TAVR, the patient was transferred to [facility] for pressor and inotropic support. Pressors weaned overnight. Cardiac indices by thermodilution remain greater than 3 with continued Milrinone 0.125 mcg/kg/min. EKG today NSR with stable TX/QRS intervals. Hemoglobin 7.8 [...] Brody Kaplan APRN Structural Heart Team Pager [phone] Team Office Please see addendum by Dr. [...] DAPT moving forward. Antelmo Sharma MD Pager [phone] * Bonita Miguel PA - 05/13/2023 8:30 AM EDT Cardiac Surgery Progress Note Purnima Thacker is a 67 y.o. 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 PMH of s/p tissue AVR (2017), mixed connective tissue disease HTN, HLD, NICOLAS, diverticulosis, rosacea, essential tremor, and depression. 24h Events: From clinical laboratory medical director for above procedure Extubated at ~1600 to [...] soft b/l, no evidence of hematoma. Tubes/Lines/Drains: Haskell, RIJ, A-line, Art, PIV Assessment/Plan: 67 y.o. [...] 0600 and on the weekends please page [phone]. * Onelia Schwartz MD - 05/12/2023 1:44 [...] ejection fraction Mild coronary artery disease by [facility] 11/09/2022 Heart failure with reduced [...] FiO2 weaned to 40%. 1105: ABG 7.34/42/73/22 1285-1757: SBT performed and passed on these settings [...] PCP: Magdalena Acosta MD PCP phone number: [phone] Date of Admission: 05/08/2023 ( Hospital Day [...] 1447 PHART -- 7.34* 7.34* -- -- [id number] -- 30* 30* -- -- PO2ART -- 72* 81* -- -- QZX1NFN -- 16.0* 15.7* -- -- LACTATEVEN 2.4* 2.7* 2.7* 4.8* 2.9* VBG (Venous Blood Gas) Recent Labs 05/12/23 0700 05/12/238 05/12/2310505/11/23193905/11/23 144 LACTATEVEN 2.4* 2.7* 2.7* 4.8* 2.9* Mixed Venous Sat Recent Labs 05/12/23 0508 05/12/23 0321 05/12/23 0114 05/12/23 0030 [id number] 30.7 32.7 37.3 25.1 Objective: Vitals Last [...] questions please contact the health child care provider that requested your imaging first. Electronically signed by: ALIX RUVALCABA MD, [facility] ([phone]), at 05/10/2023 1:[address] Cardiac for [...] questions please contact the health child care provider that requested your imaging first. Electronically signed by: Cullen Narayanan MD, [facility] ([phone]), at 05/11/2023 4:[address] Angiogram Abdomen [...] questions please contact the health child care provider that requested your imaging first. Electronically signed by: Eileen Gomes MD, [facility] ([phone]), at 05/11/2023 2:42 PM XR Chest One [...] questions please contact the health child care provider that requested your imaging first. Electronically signed by: Will Rowe MD, [facility] ([phone]), at 05/11/2023 11:57 PM XR Chest One [...] questions please contact the health child care provider that requested your imaging first. Electronically signed by: Will Rowe MD, [facility] ([phone]), at 05/12/2023 3:16 AM Assessment & Plan: [...] and inotrope. She is planned for a fyzey-fb-utnmi TAVR this morning, which should hopefully improve [...] MD, FACP, FACC Section of Cardiovascular Medicine [facility] Arts Therapistdirector market intelligence [facility] [place] [...] ejection fraction Mild coronary artery disease by [facility] 11/09/2022 Heart failure with reduced [...] 05/11/2023 4:11 PM EDT Reported off to TIRE FINISHER and pt transferred over in the bed for higher level of care. * Antelmo Sharma MD - 05/11/2023 9:45 AM EDT Images from the original note were not included. [facility] [place] [address] [address] STRUCTURAL HEART DISEASE CONSULTATION NOTE PRIMARY CARE [...] who had been referred for possible TAVR bipnc-wm-ezycq evaluation. Her primary symptoms are of dyspnea [...] [facility]. 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 She states [...] ejection fraction Mild coronary artery disease by [facility] 11/09/2022 Heart failure with reduced [...] hour(s)) Lactate, whole blood, send to lab ([facility]) Result Value Ref Range Lactate WB 3.1 (H) 0.5 - 2.2 mmol/L Heparin (unfractionated) Level Result Value Ref Range Heparin UFH Level 0.46 IU/mL Lactate, whole blood, send to lab ([facility]) Result Value Ref Range Lactate WB 1.8 [...] leads Confirmed by MD Harshil, Enrique Bell ([id number]) on 05/10/2023 8:11:46 AM Cardiac Cath 11/09/2022 [...] alert Dr. Hudson of her inpatient status, calliham primary cardiac surgeon. Based on recent clinic visit, tentative plan had been for TAVR JANET issa ferrera given her chronological age. Cardiac cath 11/09/2022 notable for non-obstructive coronary disease. TAVR CTAs planned for today. Will review her case with cardiac surgery to determine best timing and therapies for her valve intervention. Addendum 05/11/2023 6:48 PM Due to decompensating HFrEF, she was transferred to [facility] this afternoon for further management. TAVR CT imaging support for adequate ileofemoral access. Given her acute deterioration today, will planfor RTF TAVR on 05/12/2023. Brody Kaplan APRN Structural Heart Disease Pager [phone] Please see addendum by Dr. Sharma for [...] signed and dated. Antelmo Sharma MD Pager [phone] * Harini Lance MD - 05/11/2023 6:06 AM EDT Images from the original note were not included. Cardiology Progress Note Patient info: Name: Purnima Thacker : 1955 PCP: Magdalena Acosta MD PCP phone number: [phone] Date of Admission: 05/08/2023 ( Hospital Day [...] questions please contact the health child care provider that requested your imaging first. 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, 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) Mild coronary artery disease by [facility] 11/09/2022 Hyperlipidemia, unspecified NICOLAS (obstructive [...] PCP: Magdalena Acosta MD PCP phone number: [phone] Date of Admission: 05/08/2023 ( Hospital Day 2 days ) Attending:Juna Luis Gonzalez MD ID: Purnima Thacker is [...] 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) Mild coronary artery disease by [facility] 11/09/2022 Hyperlipidemia, unspecified NICOLAS (obstructive [...] PCP: Magdalena Acosta MD PCP phone number: [phone] Date of Admission: 05/08/2023 ( Hospital Day 1 day ) Attending:Juan Luis Gonzlaez MD ID: Purnima Thacker is a 67 [...] Gas) No results found for: PHART, PO2ART, ZAW6UFZ, DZE0NRF Microbiology: Microbiology Results (Last 30 days) No [...] PPx: Diet: Daily Healthy Menu Choices/Cardiac diet ([facility]-Diet) Lines: Peripheral IV Line - Single Lumen [...] 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) Mild coronary artery disease by [facility] 11/09/2022 Hyperlipidemia, unspecified NICOLAS (obstructive [...] Mild coronary artery disease by [facility] 11/09/2022 I25.10 Heart failure with reduced ejection fraction due to heart valve disease I50.20, I38 Cardiogenic shock R57.0 S/P TAVR (transcatheter aortic valve replacement) Z95.2 Past Medical History: Diagnosis Date Anemia Past Surgical History: Procedure Laterality Date PRG CATH PLNM LEFT HEART CATH & ARTS W/INJ & ANGIO IMG S&I N/A 11/09/2022 CORONARY ANGIOGRAPHY; W [facility],POSSIBLE PCI (WRVU 5.6) performed by Mario Alberto Escobedo MD at [facility] CATH LABS PRO AORTOPLAS FOR SUPRAVALV STEN N/A 09/21/2016 @AORTOPLASTY FOR SUPRAVALVULAR STENOSIS (WRVU 29.33) performed by Alirio Hudson MD at [facility] MAIN OR PRO REPLACEMENT PROSTHETIC AORTIC VALVE OPEN W CARDIOPULMONARY BYPASS HOMOGRF/STENT N/A 09/21/2016 @REPLACE AORTIC VALVE, OPEN, W\CPB, W\PROSTHETIC VALVE (WRVU 41.32) performed by Alirio Hudson MD at [facility] MAIN OR Social History and Habits: [...] Mild coronary artery disease by [facility] 11/09/2022 I25.10 Heart failure with reduced ejection fraction due to heart valve disease I50.20, I38 Cardiogenic shock R57.0 S/P TAVR (transcatheter aortic valve replacement) Z95.2 Past Medical History: Diagnosis Date Anemia Past Surgical History: Procedure Laterality Date PRG CATH PLNM LEFT HEART CATH & ARTS W/INJ & ANGIO IMG S&I N/A 11/09/2022 CORONARY ANGIOGRAPHY; W [facility],POSSIBLE PCI (WRVU 5.6) performed by Mario Alberto Escobedo MD at [facility] CATH LABS PRO AORTOPLAS FOR SUPRAVALV STEN N/A 09/21/2016 @AORTOPLASTY FOR SUPRAVALVULAR STENOSIS (WRVU 29.33) performed by Alirio Hudson MD at [facility] MAIN OR PRO REPLACEMENT PROSTHETIC AORTIC VALVE OPEN W CARDIOPULMONARY BYPASS HOMOGRF/STENT N/A 09/21/2016 @REPLACE AORTIC VALVE, OPEN, W\CPB, W\PROSTHETIC VALVE (WRVU 41.32) performed by Alirio Hudson MD at [facility] MAIN OR Social History and Habits: [...] days, which prompted her to present to [employer]. She also endorses some intermittent retrosternal chest pain with exertion.She endorses some dizziness with exertion, but has not gotten faint or passed out. At [facility] she was noted to be afebrile, blood pressure 105/64, HR 120s, satting 95% on 2L NC. Labs from [facility] are below, of note she had [...] 89/59, which prompted the transfer to us. [facility] labs: CBC - Hgb 10.5 CMP - Cr 1.1 BNP 16465 HsTrop 1358 Lactate 1.6 D-dimer 1183 Interval History Patient was admitted to [facility] due to concern on low [...] Klaudia Reid MD Internal Medicine PGY-1 Pager [phone], M1-S1 Service Associated attestation - Juan Luis Gonzalez MD - 05/08/2023 10:00 PM EDT Cardiology Attending Addendum Active Hospital Problems Diagnosis Symptomatic severe aortic stenosis with low ejection fraction Heart failure with reduced ejection fraction due to heart valve disease Mild coronary artery disease by [facility] 11/09/2022 Hyperlipidemia, unspecified History of aortic valve replacement Resolved Hospital Problems No resolved problems to display. I have interviewed and examined the patient, reviewed the available data, and have discussed my findings, assessment and plan with the patient and the team on admission to S2 service (from CV service) today. I agree with Dr. Redi's note as below. Patient with subacute systolic [...] PCP: Magdalena Acosta MD PCP phone number: [phone] Date of Admission: 05/08/2023 ( Hospital Day 0 days ) Attending:Enrique Chua MD ID: Purnima Thacker is a 67 y.o. female w/ PMH of s/p bioprosthetic AVR in 2016 with recent concern for severe restenosis, HTN, HLD, mixed connective tissue disease, who presents in transfer from [facility] with worsening BONILLA and weight gain [...] four days, which promptedher to present to [employer]. She also endorses some intermittent retrosternal chest pain with exertion. She endorses some dizziness with exertion, but has not gotten faint or passed out. At [facility] she was noted to be afebrile, blood pressure 105/64, HR 120s, satting 95% on 2L NC. Labs from [facility] are below, of note she had [...] 89/59, which prompted the transfer to us. [facility] labs: CBC - Hgb 10.5 CMP - Cr 1.1 BNP 63792 HsTrop 1358 Lactate 1.6 D-dimer 1183 Vasoactive [...] tissue disease, who presents in transfer [facility] worsening BONILLA and weight gain concerning [...] #Routine Diet: Daily Healthy Menu Choices/Cardiac diet ([facility]-Diet) DVT Prophylaxis: heparin gtt GI Prophylaxis: none [...] to the planned procedure. Hand Hygiene: The sustainability engineer did perform hand hygiene prior to [...] Successful arterial line placement. Crispin Timmons MD Adjustment Clerk Associated attestation - Onelia Schwartz MD - [...] (flow was non-pulsatile) and appearance of blood. Haskell-Marily catheter was placed and locked at 55 [...] information for follow-up [facility] [place] [address] [place] [address] Cardiac Rehab, [place] [address] [place] [address] [facility], [place] [address] [place] [address] Transportation: family or friend will provide *Brother [...] Type: *No Product type* / Secondary Insurance: [employer] [place] Prescription Coverage: Yes This plan was formulated with input from patient, family (please identify family/friend involved ifapplicable) and team. All are in agreement with plan. Aliza Martino MSN-Ed, RN ACM electric organ assembler Office of Care Management Pager #[phone] * Plan of Care - Favian Mckeon [...] Lana Chaudhary RN - 05/21/2023 4:46 PM [facility] [place] [facility] OFFICE OF CARE MANAGEMENT [...] Type: *No Product type* / Secondary Insurance: [employer] [facility] [place] Last Physical Therapy Recommendation: [...] needs. describing our affiliations within the [facility] and educate about their right to choose where referrals are sent. provide a list of Home Health Agencies / Durable Medical Equipment vendors which serve their preferred geographic area. They have requested referrals to: [facility] [address] [place] [address] [facility] [place], [place] Note routed to a Welder Journeyman who will communicate referrals to facilities and provide any required information. Transportation: family or friend will provide *Brother Raymond on Tuesday 05/22 at 1000 Barriers to discharge: Does not have home 22/02 assist available until tomorrow Tuesday 05/22 Plan going forward: Discharge home into the 22/02 home care of brother Raymond with [facility] and [place] [facility] PT/OT services on Tuesday 05/22 [...] Attending: All Staff: Staff Role Juanita Almaguer Business Planning Manager Laure Ricks PA Physician Marine Reporter Magdalena Rodriguez RN Radiology Nurse Consuelo Espinoza restaurant area director Nurse Post-operative diagnosis/Indication: Right pleural effusion Name [...] Type: *No Product type* / Secondary Insurance: [employer] [facility] [place] Last Physical Therapy Recommendation: shelter facility, [...] to: discuss discharge planning needs. provide the [facility], Office of Care Management letter from the Outdoor Emergency Care Technician pertaining to rehab referrals. provide a letter describing our affiliations within the [facility] and educate about their right to choose where referrals are sent. provide the CMS Star Quality Rating handout. review the different levels of rehab including SNF, swing, and acute. provide a list of facilities within their preferred geographic area. request that they provide at least three choices for referral. They have requested referrals to: [facility] [address] [place] [address] [facility] ([facility]) [address] [place] [address] (Accepts pts only after exhausting all other local SNF options) [facility] (Swing) ([facility]) [address] [place] [address] PHONE: [phone] FAX: [phone] [facility] ([facility]) [address] [place] [address] PHONE: [phone] FAX: [phone] Note routed to a Welder Journeyman who will communicate referrals to facilities and [...] Crenshaw RN - 05/17/2023 10:25 AM EDT [facility] CARDIAC REHABILITATION Purnima Thacker was seen today regarding participation in the outpatient Phase 2 Cardiac Rehabilitation at [facility]. The patient agrees to a referral [...] from the original note were not included. [facility] NEPHROLOGY/HYPERTENSION CONSULT NOTE PATIENT: Purnima [...] in her course. She ultimately underwent a zfuee-rs-orlmt procedure on and tolerated it well (see operative details). [facility] [...] 1423 05/12/23 1105 PHART 7.39 7.37 7.34* [id number] 33* 36 42 PO2ART 101 102 73* MWU2IDR 19.5* 20.4 22.1 LACTATEVEN 1.5 1.8 2.8* RDB8USU 40 40 40 PFRATIOART2 252 255 182 VBG (Venous Blood Gas) Recent Labs 05/12/23 1557 05/12/23 1423 05/12/23 1105 LACTATEVEN 1.5 1.8 2.8* Mixed Venous Sat Recent Labs 05/12/23 1425 05/12/23 0508 05/12/23 0321 [id number] 59.9 30.7 32.7 LFT's: Recent Labs 05/14/23 0110 05/13/23 0115 05/12/23 0600 BILITOT 0.4 0.5 0.9 BILIDIR -- 0.3 -- ALBUMIN 3.6 3.0* 3.5 ALKPHOS 86 85 100 ALT 437* 903* 1,174* AST 319* 792* 1,435* No results found for: UPROTCREAT No results found for: TPROTEINPEP, ALBELECT No results found for: MICROALBUR, XCPX63VLC No results found for: HA1C Lab Results Component Value Date CALCIUM 8.5 05/14/2023 PHOS 4.7 (H) 05/08/2023 No results found for: 25OHVITD MICROBIOLOGY: ProcedureComponentValueUnitsDate/TimeUrine culture [[id number]]Collected: 05/11/231921Lab Status: Final resultSpecimen: Clean Catch UrineUpdated: [...] consulted for assessment if this patient needs UNIT DIRECTOR. Atthis time, we can likely hold off on UNIT DIRECTOR. Her volume status appears sufficient and her metabolic kanwal angements with mild acidosis is not too profound. Patient does not have significant uremic symptoms. We can hold off for today, but the patient is a high risk candidate for needing UNIT DIRECTOR in future daysespecially if her Cr curve trends the direction it is for the next several days. S/p Zxsfu-dt-Jazny TF TAVR: Management per cardiology. On milrinone gtt. PLAN: - Please obtain following diagnostics: renal US, urinalysis, urine prot/Cr ratio, urine albumin/Cr ratio, CK, uric acid, serum osmol, daily VBGs - No acute indications for UNIT DIRECTOR/dialysis. We will keep close eye on Cr trend, volume status, and metabolics to ensure patient still does not need UNIT DIRECTOR as she ensues intrinsic renal recovery - [...] M.H.Katherine., M.A. PGY-V Nephrology-Hypertension Fellow Page # [phone] [facility] [address] 2nd floor, Instructional Consultant [address] [place] [address] * Care Management - Mario Alberto Olmos [...] Type: *No Product type* / Secondary Insurance: [facility] Plan for discharge is: Home [...] for a TAVR at 730. Returned to [facility] at 0945. Was intubated in the clinical laboratory medical director due to agitation. Maintained bedrest for 5 [...] Operative Note Patient Name: Purnima Thacker : [id number] MR#: [id number] Case Date: 05/12/2023 Surgeon: Surgeon(s) and Role: [...] procedure Note: Patient Name: Purnima Thacker : [id number] MR#: [id number] Case Date: 05/12/2023 Operators Surgeon: Surgeon(s) and [...] main with 4.0 x 30 mm Resolute [place] Drug Eluting Stent Perclose x1 + Angio-seal 8 Fr x1, RFA Manual pressure, LFA Manual pressure, LFV Endotracheal intubation (performed by cardiac anesthesia) Preliminary findings: Successful right transfemoral TAVR Sowfm-gf-Gbcbl with a 23 mm Lai 3 THV. [...] MD, M.Sc. Structural Heart Disease Fellow Pager :[phone] Antelmo Sharma MD Pager [phone] * Op Note - Alirio Hudson MD - 05/12/2023 7:37 AM EDT Preop Diagnosis: Severe aortic stenosis, symptomatic. Postop Diagnosis: Same. Procedure: Transfemoral TAVR procedure with 23mm valve. Surgeon: Alirio Hudson M.D. Machine Hostler: Danny CULP Procedure: The patient was taken to the clinical laboratory medical director. The patient had monitored anesthesia care. 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 [facility] [place] [address] [address] STRUCTURAL HEART DISEASE CONSULTATION NOTE PRIMARY CARE [...] who had been referred for possible TAVR tgikb-kb-tawpu evaluation. Her primary symptoms are of dyspnea [...] [facility]. 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 PROBLEM LIST: Patient Active Problem List Diagnosis Symptomatic severe aortic stenosis with low ejection fraction Mild coronary artery disease by [facility] 11/09/2022 Heart failure with reduced [...] hour(s)) Lactate, whole blood, send to lab ([facility]) Result Value Ref Range Lactate WB 1.8 [...] leads Confirmed by MD Harshil, Enrique Bell ([id number]) on 05/10/2023 8:11:46 AM Assessment and Plan: [...] alert Dr. Hudson of her inpatient status, calliham primary cardiac surgeon. Based on recent clinic [...] Antelmo Sharma MD Structural Heart Disease Pager [phone] * Plan of Care - Sarahi Nice RN - 05/10/2023 3:55 AM EDTSumavis: RN Note and Care Plan Sarahi Nice RN assumed care of pt at time of their arrival to room 362 from [facility]. Pt voices shortness of breath [...] VTE (Venous Thromboembolism) Risk Flowsheets (Taken 05/09/2023 3556) VTE Prevention/Management: anticoagulant therapy Intervention: Prevent Infection [...] utilized Taken 05/08/20231999 by Alivia Kauffman hand ii thermal cutter/Support System Care: self-care encouraged support provided Problem: [...] Transfer from another hospital Location: admitted from [facility] Reason for Hospitalization: Critical aortic stenosis, causing symptoms Past medical History: Past Medical History: Diagnosis Date Anemia Hospitalizations Within the Past 30 Days: no previous admission in last 30 days Current Decision-Making Capacity: Self If AD's have not been completed the following surrogate would be surrogate decision maker per [place] surrogate decision making law. (Only good for 180 days) Any patient receiving care in [place] must abide by [place] law. The hierarchy for surrogate decision making [...] (i) The agent with financial power of title one teacher or a conservator appointed in accordance with [...] DME: none Home Address confirmed as: [address] [place] [address] Social & Family Supports: All names listed [...] Type: *No Product type* / Secondary Insurance: [facility] ONLY if patient has Medicare A&B - Does this patient have secondary insurance?: Yes ; Prescription Coverage: Yes Preferred Pharmacy: updated to [facility] in [facility] Status: Patient is a : No Primary Care Provider confirmed: Magdalena Acosta MD [phone] Patient/Caregiver Goals of Treatment: Potential Needs for [...] transition of care planning. Alie Bradshaw RN, Pager-[phone] * Plan of Care - Emily Lucero RN - 05/08/2023 2:54 PM EDT OUTCOME EVALUATION NOTE: OUTCOME SUMMARY: Pt arrived from [facility]. A&O, no c/o pain or SOB. [...] EDT Office Visit Dermatology at [place] [address] [place] [id number] Marek Bonilla MD [address] [place] [address] Scheduled Referrals Name Type Priority Associated Diagnoses [...] Heart Cath W/Inj L Ventriculography, Img S&I ([id number]) 05/12/2023 7:37 AM EDT Aortic valve stenosis, [...] DOPP COLOR DOPP (07/08/2023 12:15 PM EST) [facility] [facility] SYSTEM Anatomical Region Laterality Modality Cardiac Other 07/08/2023 10:3 1 AM EST Narrative 07/08/2023 12:26 PM EST [address] [place] [id number] ? Echocardiogram Report Name: PURNIMA THACKER ?Study Date: 07/08/2023 10:31 AMBP: 118/60 mmHg ? Patient Location: : 1955 ? Height: 155 cm ? Account: [id number] Age: 67 yrs ? Weight: 74 kg Gender: Female ?BSA: 1.7 m2 Ordering Physician: ALIRIO HUDSON Referring Physician: VINOD JUÁREZ Performed By: Felicia Norris RDCS Reason For Study: S/P TAVR Exam Location: [facility]. Interpretation Summary Left ventricular systolic function [...] no significant change (post-procedure). Procedure Limited - 86876. Doppler - 22911. Color Doppler - 28558. Satisfactory quality. This study is limited because [...] Note Lee Kincaid MD - 07/08/2023 [address] [place] [address] Echocardiogram Report Name: KIRSTIE PURNIMA M Study Date: 310:31 AMBP: 118/60 mmHg Patient Location: : 1955 Height: 155 cm Account: [id number] Age: 67 yrs Weight: 74 kg Gender: Female BSA: 1.7 m2 Ordering Physician: ALIRIO HUDSON Referring Physician: VINOD JUÁREZ Performed By: Felicia Norris RDCS Reason For Study: S/P TAVR Exam Location: [facility]. Interpretation Summary Left ventricular systolic function [...] is nosignificant change (post-procedure). Procedure Limited - 44253. Doppler - 45016. Color Doppler - 64254. Satisfactoryquality. This study is limited because of [...] EST) Glucose 93 65 - 199 mg/dL [facility] Comment:Diabetes: >=200 mg/d L plus symptoms Blood Urea Nitrogen 19(H) 8 - 18 mg/dL [facility] Creatinine 0.81 0.70 - 1.20 mg/dL [facility] Sodium 142 135 - 145 mmol/L [facility] Potassium 3.8 3.5 - 5.0 mmol/L [facility] Comment: Please note: ??Patients with WBC >100,000 may have falsely elevated Potassium levels. ??For accurate Potassium quantification in these patients send serum separator tube (gold top) for subsequent determinations. ??Contact the Clinical Chemistry Laboratory if there are any questions. Chloride 104 98 - 107 mmol/L [facility] Carbon Dioxide 26 22 - 31 mmol/L [facility] Anion Gap 12 5 - 15 mmol/L [facility] Calcium 10.2 8.5 - 10.5 mg/dL [facility] Protein, Total 7.4 6.1 - 8.0 g/dL [facility] Albumin 4.1 3.2 - 5.2 g/dL [facility] Aspartate Aminotransferase 24 0 - 30 unit/L [facility] Alanine Aminotransferase 12 0 - 30 unit/L [facility] Alkaline Phosphatase 93 35 - 105 unit/L [facility] Bilirubin, Total 0.3 0.2 - 1.3 mg/dL [facility] Est Glomerular Filtration Rate 80 >=60 mL/min/1. 73 m?? [facility] Comment: This patient's estimated GFR was [...] Lab Alirio Hudson MD CHEMISTRY ORDERABLE S [facility] [place] [address] * (ABNORMAL) Basic Metabolic Panel (non-fasting) (05/22/2023 3:57 AM EDT) Pathologist [facility] Glucose 88 65 - 199 mg/dL [facility] Comment:Diabetes: >=200 mg/d L plus symptoms Blood Urea Nitrogen 21(H) 8 - 18 mg/dL [facility] Creatinine 0.69(L) 0.70 - 1.20 mg/dL [facility] Sodium 136 135 - 145 mmol/L [facility] Potassium 3.6 3.5 - 5.0 mmol/L [facility] Comment: Please note: ??Patients with WBC >100,000 may have falsely elevated Potassium levels. ??For accurate Potassium quantification in these patients send serum separator tube (gold top) for subsequent determinations. ??Contact the Clinical Chemistry Laboratory if there are any questions. Chloride 102 98 - 107 mmol/L [facility] Carbon Dioxide 23 22 - 31 mmol/L [facility] Anion Gap 11 5 - 15 mmol/L [facility] Calcium 8.6 8.5 - 10.5 mg/dL [facility] Est Glomerular Filtration Rate 95 >=60 mL/min/1. 73 m?? [facility] Comment: This patient's estimated [...] Agency Comment Spec In Lab Mara Serrano [employer] CHEMISTRY ORDERABL ES [facility] [place] [address] * (ABNORMAL) Basic Metabolic Panel (non-fasting) (05/21/2023 5:06 AM EDT) Glucose 87 65 - 199 mg/dL [facility] Comment:Diabetes: >=200 mg/d L plus symptoms Blood Urea Nitrogen 25(H) 8 - 18 mg/dL [facility] Creatinine 0.84 0.70 - 1.20 mg/dL [facility] Sodium 136 135 - 145 mmol/L [facility] Potassium 3.6 3.5 - 5.0 mmol/L [facility] Comment: Please note: ??Patients with WBC >100,000 may have falsely elevated Potassium levels. ??For accurate Potassium quantification in these patients send serum separator tube (gold top) for subsequent determinations. ??Contact the Clinical Chemistry Laboratory if there are any questions. Chloride 102 98 - 107 mmol/L [facility] Carbon Dioxide 26 22 - 31 mmol/L [facility] Anion Gap 8 5 - 15 mmol/L [facility] Calcium 8.9 8.5 - 10.5 mg/dL [facility] Est Glomerular Filtration Rate 76 >=60 mL/min/1. 73 m?? [facility] Comment: This patient's estimated GFR was [...] Narrative Resulting Agency Comment Spec In Lab [facility] [employer] CHEMISTRY ORDERABL ES Performing Organization Address [facility] Co de Phone Number [facility] [place] [address] * Lavender Tube HOLD (05/20/2023 2:52 AM EDT) Lavender Hold Sample in lab. [facility] Blood Venous Draw / Unknown 05/20/2023 2:52 AM EDT 05/20/2023 3:04 AM EDT Mara Jackson [employer]IST HEMATOLOGY ORDERAB LES Performing Organization Address [facility] de Phone Number [facility] [place] [address] * (ABNORMAL) Basic Metabolic Panel (non-fasting) (05/20/2023 2:52 AM EDT) Glucose 152 65 - 199 mg/dL [facility] Comment:Diabetes: >=200 mg/d L plus symptoms Blood Urea Nitrogen 33(H) 8 - 18 mg/dL [facility] Creatinine 0.82 0.70 - 1.20 mg/dL [facility] Sodium 137 135 - 145 mmol/L [facility] Potassium 3.7 3.5 - 5.0 mmol/L [facility] Comment: Please note: ??Patients with WBC >100,000 may have falsely elevated Potassium levels. ??For accurate Potassium quantification in these patients send serum separator tube (gold top) for subsequent determinations. ??Contact the Clinical Chemistry Laboratory if there are any questions. Chloride 99 98 - 107 mmol/L [facility] Carbon Dioxide 22 22 - 31 mmol/L [facility] Anion Gap 16(H) 5 - 15 mmol/L [facility] Calcium 9.0 8.5 - 10.5 mg/dL [facility] Est Glomerular Filtration Rate 78 >=60 mL/min/1. 73 m?? [facility] Comment: This patient's estimated GFR was [...] Agency Comment Spec In Lab Mara Thomasfield [employer]IST CHEMISTRY ORDERABL ES Performing Organization Address [facility] Co de Phone Number [facility] [place] [address] * (ABNORMAL) Potassium (05/20/2023 2:52 AM EDT) [facility] Signature Potassium 3.4(L) 3.5 - 5.0 mmol/L [facility] Comment: Please note: ??Patients with WBC >100,000 may have falsely elevated Potassium levels. ??For accurate Potassium quantification in these patients send serum separator tube (gold top) for subsequent determinations. ??Contact the Clinical Chemistry Laboratory if there are any questions. Blood 05/20/2023 2:52 AM EDT 05/20/2023 3:03 AM EDT Narrative Resulting Agency Comment Spec In Lab Mara Maggie [employer]IST CHEMISTRY ORDERABL ES Performing Organization Address City/[facility] Co de Phone Number [facility] [place] [address] * XR Chest PA & Lateral (Generic) [...] questions please contact the health child care provider that requested your imaging first. ? Electronically signed by: Chyna Johnson MD, [facility] ??([phone]), at 05/19/2023 2:19 PM Narrative 05/19/2023 2:19 [...] have questions please contactthe health child care provider that requested your imaging first. Electronically signed by: Chyna Johnson MD, [facility]([phone]), at 05/19/2023 2:19 PM Alirio Hudson MD IMG DX ORDERABLES * (ABNORMAL) Basic Metabolic Panel (non-fasting) (05/19/2023 5:49 AM EDT) Glucose 93 65 - 199 mg/dL [facility] Comment:Diabetes: >=200 mg/d L plus symptoms Blood Urea Nitrogen 45(H) 8 - 18 mg/dL [facility] Creatinine 1.02 0.70 - 1.20 mg/dL [facility] Sodium 138 135 - 145 mmol/L [facility] Potassium 3.9 3.5 - 5.0 mmol/L [facility] Comment: Please note: ??Patients with WBC >100,000 may have falsely elevated Potassium levels. ??For accurate Potassium quantification in these patients send serum separator tube (gold top) for subsequent determinations. ??Contact the Clinical Chemistry Laboratory if there are any questions. Chloride 102 98 - 107 mmol/L [facility] Carbon Dioxide 26 22 - 31 mmol/L [facility] Anion Gap 10 5 - 15 mmol/L [facility] Calcium 9.7 8.5 - 10.5 mg/dL [facility] Est Glomerular Filtration Rate 60 >=60 mL/min/1. 73 m?? [facility] Comment: This patient's estimated [...] Agency Comment Spec In Lab Mara Serrano [employer] CHEMISTRY ORDERABL ES [facility] [place] [address] * IR Chest Tube Placement Right (05/18/2023 [...] EDT) Glucose 95 65 - 199 mg/dL [facility] Comment:Diabetes: >=200 mg/d L plus symptoms Blood Urea Nitrogen 71(H) 8 - 18 mg/dL [facility] Comment:result rechecked-[facility] Creatinine 1.64(H) 0.70 - 1.20 mg/dL [facility] Comment:result rechecked-[facility] Sodium 137 135 - 145 mmol/L [facility] Potassium 3.7 3.5 - 5.0 mmol/L [facility] Comment: Please note: ??Patients with WBC >100,000 may have falsely elevated Potassium levels. ??For accurate Potassium quantification in these patients send serum separator tube (gold top) for subsequent determinations. ??Contact the Clinical Chemistry Laboratory if there are any questions. Chloride 100 98 - 107 mmol/L [facility] Carbon Dioxide 24 22 - 31 mmol/L [facility] Anion Gap 13 5 - 15 mmol/L [facility] Calcium 9.7 8.5 - 10.5 mg/dL [facility] Est Glomerular Filtration Rate 34(L) >=60 mL/min/1. 73 m?? [facility] Comment: This patient's estimated GFR was [...] Agency Comment Spec In Lab Mara Serrano [employer]IST CHEMISTRY ORDERABL ES [facility] [place] [address] * XR Chest PA & Lateral (Generic) [...] questions please contact the health child care provider that requested your imaging first. [...] have questions please contactthe health child care provider that requested your imaging first. Electronically signed by: Ghassan Reyes MD, [facility]([phone]), at 05/17/2023 11:46 AM Alirio Hudson MD IMG DX ORDERABLES * (ABNORMAL) Comprehensive metabolic panel (non-fasting) (05/17/2023 4:35 AM EDT) Glucose 89 65 - 199 mg/dL [facility] Comment:Diabetes: >=200 mg/d L plus symptoms Blood Urea Nitrogen 97(H) 8 - 18 mg/dL [facility] Creatinine 2.97(H) 0.70 - 1.20 mg/dL [facility] Comment:result rechecked-JSJc Sodium 135 135 - 145 mmol/L [facility] Potassium 4.1 3.5 - 5.0 mmol/L [facility] Comment: Please note: ??Patients with WBC >100,000 may have falsely elevated Potassium levels. ??For accurate Potassium quantification in these patients send serum separator tube (gold top) for subsequent determinations. ??Contact the Clinical Chemistry Laboratory if there are any questions. Chloride 97(L) 98 - 107 mmol/L [facility] Carbon Dioxide 22 22 - 31 mmol/L [facility] Anion Gap 16(H) 5 - 15 mmol/L [facility] Calcium 9.6 8.5 - 10.5 mg/dL [facility] Protein, Total 6.5 6.1 - 8.0 g/dL [facility] Albumin 3.7 3.2 - 5.2 g/dL [facility] Aspartate Aminotransferase 58(H) 0 - 30 unit/L [facility] Alanine Aminotransferase 66(H) 0 - 30 unit/L [facility] Alkaline Phosphatase 86 35 - 105 unit/L [facility] Bilirubin, Total 0.6 0.2 - 1.3 mg/dL [facility] Est Glomerular Filtration Rate 17(L) >=60 mL/min/1. 73 m?? [facility] Comment: This patient's estimated GFR was [...] Lab Alirio Hudson MD CHEMISTRY ORDERABLE S [facility] [place] [address] * Potassium (05/16/2023 11:15 PM EDT) Potassium 3.7 3.5 - 5.0 mmol/L [facility] Comment: Please note: ??Patients with WBC [...] MD CHEMISTRY ORDERABLE S Performing Organization Address [facility] Co de Phone Number [facility] [place] [address] * Magnesium (05/16/2023 5:22 PM EDT) Magnesium 0.96 0.69 - 1.07 mmol/L [facility] Blood 05/16/2023 5:22 PM EDT 05/16/2023 5:27 PM EDT Narrative Resulting Agency Comment Spec In Lab Alirio Hudson MD CHEMISTRY ORDERABLE S Performing Organization Address [facility] Co de Phone Number [facility] [place] [address] * (ABNORMAL) Basic Metabolic Panel (non-fasting) (05/16/2023 5:22 PM EDT) Glucose 106 65 - 199 mg/dL [facility] Comment:Diabetes: >=200 mg/d L plus symptoms Blood Urea Nitrogen 103(H) 8 - 18 mg/dL [facility] Creatinine 3.91(H) 0.70 - 1.20 mg/dL [facility] Comment:result rechecked-imm Sodium 132(L) 135 - 145 mmol/L [facility] Potassium 3.6 3.5 - 5.0 mmol/L [facility] Comment: Please note: ??Patients with WBC >100,000 may have falsely elevated Potassium levels. ??For accurate Potassium quantification in these patients send serum separator tube (gold top) for subsequent determinations. ??Contact the Clinical Chemistry Laboratory if there are any questions. Chloride 92(L) 98 - 107 mmol/L [facility] Carbon Dioxide 22 22 - 31 mmol/L [facility] Anion Gap 18(H) 5 - 15 mmol/L [facility] Calcium 9.7 8.5 - 10.5 mg/dL [facility] Est Glomerular Filtration Rate 12(L) >=60 mL/min/1. 73 m?? [facility] Comment: This patient's estimated GFR was [...] Lab Alirio Hudson MD CHEMISTRY ORDERABLE S [facility] [place] [address] * (ABNORMAL) Potassium (05/16/2023 11:43 AM EDT) [facility] Signature Potassium 3.3(L) 3.5 - 5.0 mmol/L [facility] Comment: Please note: ??Patients with WBC >100,000 may have falsely elevated Potassium levels. ??For accurate Potassium quantification in these patients send serum separator tube (gold top) for subsequent determinations. ??Contact the Clinical Chemistry Laboratory if there are any questions. Blood 05/16/2023 11:4 3 AM EDT 05/16/2023 11:47 AM EDT Narrative Resulting Agency Comment Spec In Lab Alirio Hudson MD CHEMISTRY ORDERABLE S [facility] [place] [address] * (ABNORMAL) Ferritin (05/16/2023 4:41 AM EDT) Ferritin 1,813(H) 30 - 400 ng/mL [facility] Comment: Pediatric reference ranges not verified at [facility], interpret with caution. Reference ranges for females greater than 50 years of age approach values for men, i.e., 30-400 ng/mL. Blood 05/16/2023 4:41 AM EDT 05/16/2023 4:54 AM EDT Narrative Resulting Agency Comment Spec In Lab Kristopher Ayoub MD CHEMISTRY ORDERABLES [facility] [place] [address] * (ABNORMAL) PTH (05/16/2023 4:41 AM EDT) [facility] Parathyroid Hormone 120(H) 15 - 65 pg/mL [facility] Blood 05/16/2023 4:41 AM EDT 05/16/2023 4:54 AM EDT Narrative Resulting Agency Comment Spec In Lab Kristopher Ayoub MD CHEMISTRY ORDERABLES Performing Organization Address City/[facility]/ZIP Co de Phone Number [facility] [place] [address] * Vitamin D, 25-Hydroxy (05/16/2023 4:41 AM EDT) Pathologist [facility] Vitamin D Total 25 OH 33 21 - 100 ng/mL [facility] Vit D Interp Sufficient [facility] Blood 05/16/2023 4:41 AM EDT 05/16/2023 4:54 AM EDT Narrative Resulting Agency Comment Spec In Lab Kristopher Ayoub MD CHEMISTRY ORDERABLES [facility] [place] [address] * (ABNORMAL) Blood Gas Venous ([facility]) (05/16/2023 4:22 AM EDT) Pathologist [facility] pH, Venous 7.41 7.32 - 7.42 [facility] PCO2, Venous 32(L) 41 - 51 mmHg [facility] PO2, Venous 73(H) 25 - 40 mmHg [facility] Bicarbonate, Venous 19.6 mmol/L [facility] Base Excess, Venous -5.1 mmol/L [facility] Hgb Blood Gas 9.7(L) 11.7 - 15.5 g/dL [facility] Oxyhemoglobin, Venous 92.8 % [facility] Carboxyhemoglob in, Venous 0.1 % [facility] Comment: Nonsmokers: 0.5-1.5% COHB Smokers: Variable, but usually less than 10% Toxic: 20-30% COHB Lethal: Greater than 60% COHB Methemoglobin, Venous 0.3 <=1.5 % [facility] Na Whole Blood 130(L) 135 - 145 mmol/L [facility] K Whole Blood 3.7 3.5 - 5.0 mmol/L [facility] Comment: Please note: Patients with WBC >100,000 may have falsely elevated Potassium levels. Contact the Clinical Chemistry Laboratory if there are any questions. ICa Whole Blood 1.15 1.15 - 1.33 mmol/L [facility] Comment: Note: ??Total bilirubin higher than 20 mg/dL may lead to falsely low ionized calcium. CL Whole Blood 95(L) 98 - 107 mmol/L [facility] Gluc Whole Bld 82 65 - 199 mg/dL [facility] Comment:Diabetes: >=200 mg/d L plus symptoms Lactate WB 1.1 0.5 - 2.2 mmol/L [facility] Blood Gas Source Venous [facility] Blood Venous Draw / Unknown 05/16/2023 4:22 AM EDT 05/16/2023 4:31 AM EDT Narrative Resulting Agency Comment Spec In Lab Bonita TOBAR CHEMISTRY ORDERABLES [facility] [place] [place] [address] * (ABNORMAL) Differential, Automated (05/16/2023 4:20 AM EDT) Neutrophil % 84.1 % [facility] Neutrophil Absolute 6.22(H) 1.70 - 6.10 x10(3)/mc L [facility] Lymph % 5.8 % [facility] Lymphocytes Abs 0.4(L) 0.9 - 3.2 x10(3)/mc L [facility] Monocyte % 8.8 % [facility] Monocyte Abs 0.6 0.3 - 0.9 x10(3)/mc L [facility] Eos % 0.4 % [facility] Eosinophils Abs 0.0 0.0 - 0.4 x10(3)/mc L [facility] Basophil % 0.0 % [facility] Baso Absolute 0.0 0.0 - 0.1 x10(3)/mc L [facility] Immature Gran % 0.90 % [facility] Comment: Immature granulocytes(IG's)percentage and absolute count will include metamyelocytes, myelocytes, and promyelocytes. Blood smears from CBCs yielding IG's will be scanned manually for concordance. If this scan disagrees with the automated IG or if promyelocytes are noted, a manual differential will be performed. Immature Gran Absolute 0.07(H) 0.00 - 0.04 x10(3)/mc L [facility] Blood 05/16/2023 4:20 AM EDT 05/16/2023 4:29 AM EDT Narrative Resulting Agency Comment Spec In Lab James Agustin MD HEMATOLOGY ORDER JODIE [facility] [place] [address] * (ABNORMAL) Hemogram (05/16/2023 4:20 AM EDT) White Blood Cell 7.4 4.0 - 9.5 x10(3)/mc L [facility] Red Blood Cell 2.40(L) 4.00 - 5.21 x10(6)/mc L [facility] Hemoglobin 7.8(L) 11.7 - 15.5 g/dL [facility] Hematocrit 22.5(L) 35.7 - 45.8 % [facility] Mean Cell Volume 93.8 82.6 - 94.4 fL [facility] Mean Cell Hemoglobin 32.5(H) 27.1 - 32.0 pg [facility] Mean Cell Hemoglobin Concentration 34.7 31.7 - 35.0 g/dL [facility] Platelet 120(L) 145 - 357 x10(3)/mc L [facility] RDW Standard Deviation 42.9 37.0 - 46.0 fL [facility] RDW coefficient of variation 12.9 11.5 - 14.1 % [facility] Mean Platelet Volume 11.3 7.6 - 12.9 fL [facility] NRBC% auto 0.7 % [facility] NRBC Absolute 0.050(H) 0.000 - 0.000 x10(3)/mc L [facility] Blood 05/16/2023 4:20 AM EDT 05/16/2023 4:29 AM EDT Narrative Resulting Agency Comment Spec In Lab James Agustin MD HEMATOLOGY ORDER JODIE [facility] [place] [address] * (ABNORMAL) Basic Metabolic Panel (non-fasting) (05/16/2023 4:20 AM EDT) Glucose 89 65 - 199 mg/dL [facility] Comment:Diabetes: >=200 mg/d L plus symptoms Blood Urea Nitrogen 108(H) 8 - 18 mg/dL [facility] LABORATORY Creatinine 4.74(H) 0.70 - 1.20 mg/dL [facility] Comment:result rechecked-OLIVA Sodium 132(L) 135 - 145 mmol/L [facility] Potassium 3.9 3.5 - 5.0 mmol/L [facility] Comment: Please note: ??Patients with WBC >100,000 may have falsely elevated Potassium levels. ??For accurate Potassium quantification in these patients send serum separator tube (gold top) for subsequent determinations. ??Contact the Clinical Chemistry Laboratory if there are any questions. Chloride 95(L) 98 - 107 mmol/L [facility] Carbon Dioxide 18(L) 22 - 31 mmol/L [facility] Anion Gap 19(H) 5 - 15 mmol/L [facility] Calcium 9.2 8.5 - 10.5 mg/dL [facility] Est Glomerular Filtration Rate 10(L) >=60 mL/min/1. 73 m?? [facility] Comment: This patient's estimated GFR was [...] Lab Alirio Hudson MD CHEMISTRY ORDERABLE S [facility] [place] [address] * (ABNORMAL) Iron and TIBC (05/16/2023 4:20 AM EDT) Iron 31 30 - 150 mcg/dL [facility] TIBC 259 250 - 450 mcg/dL [facility] Iron Saturation 12(L) 20 - 50 % [facility] Blood 05/16/2023 4:20 AM EDT 05/16/2023 4:29 AM EDT Narrative Resulting Agency Comment Spec In Lab Kristopher Ayoub MD CHEMISTRY ORDERABLES [facility] [place] [address] * (ABNORMAL) Basic Metabolic Panel (non-fasting) (05/15/2023 12:50 AM EDT) Glucose 101 65 - 199 mg/dL [facility] Comment:Diabetes: >=200 mg/d L plus symptoms Blood Urea Nitrogen 109(H) 8 - 18 mg/dL [facility] Creatinine 5.62(H) 0.70 - 1.20 mg/dL [facility] Comment:result rechecked-KS Sodium 131(L) 135 - 145 mmol/L [facility] Comment:result rechecked-KS Potassium 3.7 3.5 - 5.0 mmol/L [facility] Comment: result rechecked-KS Please note: ??Patients with WBC >100,000 may have falsely elevated Potassium levels. ??For accurate Potassium quantification in these patients send serum separator tube (gold top) for subsequent determinations. ??Contact the Clinical Chemistry Laboratory if there are any questions. Chloride 92(L) 98 - 107 mmol/L [facility] Comment:result rechecked-KS Carbon Dioxide 18(L) 22 - 31 mmol/L [facility] Comment:result rechecked-KS Anion Gap 21(H) 5 - 15 mmol/L [facility] Calcium 8.9 8.5 - 10.5 mg/dL [facility] Est Glomerular Filtration Rate 8(L) >=60 mL/min/1. 73 m?? [facility] Comment: This patient's estimated GFR was [...] Lab Alirio Hudson MD CHEMISTRY ORDERABLE S [facility] [place] [address] * (ABNORMAL) Hemogram (05/15/2023 12:50 AM EDT) White Blood Cell 9.1 4.0 - 9.5 x10(3)/mc L [facility] Red Blood Cell 2.19(L) 4.00 - 5.21 x10(6)/mc L [facility] Hemoglobin 7.2(L) 11.7 - 15.5 g/dL [facility] Hematocrit 20.6(L) 35.7 - 45.8 % [facility] Mean Cell Volume 94.1 82.6 - 94.4 fL [facility] Mean Cell Hemoglobin 32.9(H) 27.1 - 32.0 pg [facility] Mean Cell Hemoglobin Concentration 35.0 31.7 - 35.0 g/dL [facility] Platelet 109(L) 145 - 357 x10(3)/mc L [facility] RDW Standard Deviation 43.6 37.0 - 46.0 fL [facility] RDW coefficient of variation 12.9 11.5 - 14.1 % [facility] Mean Platelet Volume 10.4 7.6 - 12.9 fL [facility] NRBC% auto 2.1 % [facility] NRBC Absolute 0.190(H) 0.000 - 0.000 x10(3)/ L [facility] Blood 05/15/2023 12:5 0 AM EDT 05/15/2023 12:52 AM EDT Narrative Resulting Agency Comment Spec In Lab Alirio Hudson MD HEMATOLOGY ORDERABL ES Performing Organization Address City/State/[facility] Co de Phone Number [facility] [place] [address] * (ABNORMAL) BLOOD GAS 2 VENOUS (05/15/2023 12:49 AM EDT) pH, Venous 7.33 7.32 - 7.42 [facility] PCO2, Venous 37(L) 41 - 51 mmHg [facility] PO2, Venous 34 25 - 40 mmHg [facility] Bicarbonate, Venous 19.1 mmol/L [facility] Base Excess, Venous -6.8 mmol/L [facility] Hgb Blood Gas 10.8(L) 11.7 - 15.5 g/dL [facility] Oxyhemoglobin, Venous 58.1 % [facility] Carboxyhemoglob in, Venous 0.3 % [facility] Comment: Nonsmokers: 0.5-1.5% COHB Smokers: Variable, but usually less than 10% Toxic: 20-30% COHB Lethal: Greater than 60% COHB Methemoglobin, Venous 0.6 <=1.5 % [facility] Na Whole Blood 136 135 - 145 mmol/L [facility] K Whole Blood 3.7 3.5 - 5.0 mmol/L [facility] Comment: Please note: Patients with WBC >100,000 may have falsely elevated Potassium levels. Contact the Clinical Chemistry Laboratory if there are any questions. ICa Whole Blood 1.12(L) 1.15 - 1.33 mmol/L [facility] Comment: Note: ??Total bilirubin higher than 20 mg/dL may lead to falsely low ionized calcium. CL Whole Blood 95(L) 98 - 107 mmol/L [facility] Gluc Whole Bld 101 65 - 199 mg/dL [facility] Comment:Diabetes: >=200 mg/d L plus symptoms Lactate WB 1.3 0.5 - 2.2 mmol/L [facility] Flow, Mike 1.0 LPM [facility] Blood Gas Source Venous [facility] Blood 05/15/2023 12:4 9 AM EDT 05/15/2023 12:49 AM EDT Alirio Hudson MD POINT OF CARE TEST ORDERABLES Performing Organization Address City/State/[facility] Co de Phone Number [facility] [place] [address] * US Retroperitoneal Complete (05/14/2023 3:53 PM [...] have questions, please contact the health child care provider that requested your imaging first. ? Hayden Robledo, Staff Physician Electronically Signed Final Report ?? 05/14/2023 04:39 pm Narrative 05/14/2023 4:39 PM EDT Renal ? (Signed Final 05/14/2023 04:39 pm) PATIENT INFO: ID #: ? [id number] ?: ??55 (67 yrs)(F) Name: ? PURNIMA THACKER ?Visit Date: 05/14/2023 03:44 pm PERFORMED BY: Attending: ?Meena CULP, Hayden Stafford Resident: ? Nell CULP, Anand August Performed By: ? Consuelo Tello RDMS Referred By: ?ALIRIO HUDSON Location: ? [place] SERVICE(S) PROVIDED: URETRO - Retroperitoneal Complete - [id number] ? [id number] INDICATIONS: EVANS COMPARISON: CT: Abdomen/Pelvis 05/11/23 RIGHT [...] 05/14/2023 04:39 pm) PATIENT INFO: ID #: [id number] : 55 (67 yrs)(F) Name: PURNIMA THACKER Visit Date: 05/14/2023 03:44 pm PERFORMED BY: Attending: Hayden Robledo MD Resident: Anand Camejo MD Performed By: Consuelo Tello RDMS Referred By: ALIRIO HUDSON Location: [place] SERVICE(S) PROVIDED: URETRO - Retroperitoneal Complete - [id number] INDICATIONS: EVANS COMPARISON: CT: Abdomen/Pelvis 05/11/23 RIGHT [...] have questions, please contact the health child care provider that requested your imaging first. Hayden Robledo, Staff Physician Electronically Signed Final Report 05/14/2023 04:39 pm Alirio Hudson MD IMG US GEN ORDERABL ES * CK (05/14/2023 3:17 PM EDT) Creatine Kinase 123 0 - 160 unit/L [facility] Blood 05/14/2023 3:17 PM EDT 05/14/2023 3:31 PM EDT Narrative Resulting Agency Comment Spec In Lab Alirio Hudson MD CHEMISTRY ORDERABLE S Performing Organization Address [facility] Co de Phone Number [facility] [place] [address] * (ABNORMAL) Uric acid (05/14/2023 3:17 PM EDT) Uric Acid 14.9(H) 2.5 - 6.5 mg/dL [facility] Blood 05/14/2023 3:17 PM EDT 05/14/2023 3:31 PM EDT Narrative Resulting Agency Comment Spec In Lab Alirio Hudson MD CHEMISTRY ORDERABLE S Performing Organization Address [facility] Co de Phone Number [facility] [place] [address] * (ABNORMAL) Osmolality (05/14/2023 3:17 PM EDT) Osmolality 311(H) 275 - 295 mOsm/kg [facility] Blood 05/14/2023 3:17 PM EDT 05/14/2023 3:31 PM EDT Narrative Resulting Agency Comment Spec In Lab Alirio Hudson MD [place] [address] * (ABNORMAL) Differential, Automated (05/14/2023 1:10 AM EDT) Neutrophil % 87.2 % [facility] Neutrophil Absolute 9.74(H) 1.70 - 6.10 x10(3)/mc L [facility] Lymph % 3.9 % [facility] Lymphocytes Abs 0.4(L) 0.9 - 3.2 x10(3)/mc L [facility] Monocyte % 7.9 % [facility] Monocyte Abs 0.9 0.3 - 0.9 x10(3)/mc L [facility] Eos % 0.0 % [facility] Eosinophils Abs 0.0 0.0 - 0.4 x10(3)/mc L [facility] Basophil % 0.1 % [facility] Baso Absolute 0.0 0.0 - 0.1 x10(3)/mc L [facility] Immature Gran % 0.90 % [facility] Comment: Immature granulocytes(IG's)percentage and absolute count will include metamyelocytes, myelocytes, and promyelocytes. Blood smears from CBCs yielding IG's will be scanned manually for concordance. If this scan disagrees with the automated IG or if promyelocytes are noted, a manual differential will be performed. Immature Gran Absolute 0.10(H) 0.00 - 0.04 x10(3)/ L [facility] Blood 05/14/2023 1:10 AM EDT 05/14/2023 1:24 AM EDT Narrative Resulting Agency Comment Spec In Lab Bonita TOBAR HEMATOLOGY ORDERABLE S Performing Organization Address City/[facility]/ZIP Co de Phone Number [facility] [place] [address] * (ABNORMAL) Hemogram (05/14/2023 1:10 AM EDT) White Blood Cell 11.2(H) 4.0 - 9.5 x10(3)/mc L [facility] Red Blood Cell 2.19(L) 4.00 - 5.21 x10(6)/mc L [facility] Hemoglobin 7.2(L) 11.7 - 15.5 g/dL [facility] Hematocrit 20.3(L) 35.7 - 45.8 % [facility] Mean Cell Volume 92.7 82.6 - 94.4 fL [facility] Mean Cell Hemoglobin 32.9(H) 27.1 - 32.0 pg [facility] Mean Cell Hemoglobin Concentration 35.5(H) 31.7 - 35.0 g/dL [facility] Platelet 112(L) 145 - 357 x10(3)/mc L [facility] RDW Standard Deviation 41.4 37.0 - 46.0 fL [facility] RDW coefficient of variation 12.5 11.5 - 14.1 % [facility] Mean Platelet Volume 10.4 7.6 - 12.9 fL [facility] NRBC% auto 1.5 % [facility] NRBC Absolute 0.170(H) 0.000 - 0.000 x10(3)/ L [facility] Blood 05/14/2023 1:10 AM EDT 05/14/2023 1:24 AM EDT Narrative Resulting Agency Comment Spec In Lab Bonita TOBAR HEMATOLOGY ORDERABLE S [facility] [place] [address] * (ABNORMAL) Comprehensive metabolic panel (non-fasting) (05/14/2023 1:10 AM EDT) Glucose 120 65 - 199 mg/dL [facility] Comment:Diabetes: >=200 mg/d L plus symptoms Blood Urea Nitrogen 98(H) 8 - 18 mg/dL [facility] Creatinine 4.80(H) 0.70 - 1.20 mg/dL [facility] Comment:result rechecked-ssc Sodium 132(L) 135 - 145 mmol/L [facility] Potassium 4.1 3.5 - 5.0 mmol/L [facility] Comment: Please note: ??Patients with WBC >100,000 may have falsely elevated Potassium levels. ??For accurate Potassium quantification in these patients send serum separator tube (gold top) for subsequent determinations. ??Contact the Clinical Chemistry Laboratory if there are any questions. Chloride 94(L) 98 - 107 mmol/L [facility] Carbon Dioxide 18(L) 22 - 31 mmol/L [facility] Anion Gap 20(H) 5 - 15 mmol/L [facility] Calcium 8.5 8.5 - 10.5 mg/dL [facility] Protein, Total 5.8(L) 6.1 - 8.0 g/dL [facility] Albumin 3.6 3.2 - 5.2 g/dL [facility] Aspartate Aminotransferase 319(H) 0 - 30 unit/L [facility] Alanine Aminotransferase 437(H) 0 - 30 unit/L [facility] Alkaline Phosphatase 86 35 - 105 unit/L [facility] Bilirubin, Total 0.4 0.2 - 1.3 mg/dL [facility] Est Glomerular Filtration Rate 9(L) >=60 mL/min/1. 73 m?? [facility] Comment: This patient's estimated GFR was [...] Lab Alirio Hudson MD CHEMISTRY ORDERABLE S [facility] [place] [address] * APTT (05/13/2023 10:15 AM EDT) Partial Thromboplastin Time 27 25 - 37 sec [facility] Comment: The PTT is NOT appropriate for heparin monitoring. Use the Anti-Xa level for heparin monitoring (HEP UFH) or LMWH monitoring (HEP LMW). A PTT less than 37 seconds generally indicates adequate hemostasis. Blood 05/13/2023 10:1 5 AM EDT 05/13/2023 10:46 AM EDT Narrative Resulting Agency Comment Spec In Lab Alirio Hudson MD HEMATOLOGY ORDERABL ES Performing Organization Address [facility] de Phone Number [facility] [place] [address] * (ABNORMAL) Prothrombin Time (05/13/2023 10:15 AM EDT) Prothrombin Time 14.6(H) 9.4 - 12.5 sec [facility] International Normalization Ratio 1.3 [facility] Comment: An INR <2.0 indicates adequate [...] MD HEMATOLOGY ORDERABL ES Performing Organization Address [facility] de Phone Number [facility] [place] [address] * EKG 12 Lead (05/13/2023 9:22 AM EDT) Ventricular rate 92 BPM MUSE SYSTEM Atrial Rate 92 BPM MUSE SYSTEM P-R Interval 140 ms MUSE SYSTEM QRS Duration 104 ms MUSE SYSTEM Q-T Interval 384 ms MUSE SYSTEM QTC Calculated (Bezet) 474 ms MUSE SYSTEM Calculated P [place] 33 degrees MUSE SYSTEM Calculated R [place] 41 degrees MUSE SYSTEM Calculated T [place] -35 degrees MUSE SYSTEM INTERPRETATION Sinus rhythm with frequent Premature ventricular complexes Septal infarct , age undetermined ST & T wave abnormality, consider lateral ischemia Abnormal ECG When compared with ECG of 12-MAY-2023 10:10, Premature ventricular complexes are now Present I personally reviewed the tracing and edited the fellows interpretation Confirmed by fellow MD Anitha, Carissa ([id number]) on 05/13/2023 3:25:30 PM Confirmed by Maxx Best ([id number]) on 05/13/2023 8:30:56 PM MUSE SYSTEM 05/13/2023 9:22 AM EDT 05/13/2023 8:30 PM EDT Alirio Hudson MD ECG ORDERABLES MUSE SYSTEM * (ABNORMAL) Differential, Automated (05/13/2023 1:15 AM EDT) Neutrophil % 88.1 % [facility] Neutrophil Absolute 7.62(H) 1.70 - 6.10 x10(3)/mc L [facility] Lymph % 3.1 % [facility] Lymphocytes Abs 0.3(L) 0.9 - 3.2 x10(3)/mc L [facility] Monocyte % 7.9 % [facility] Monocyte Abs 0.7 0.3 - 0.9 x10(3)/mc L [facility] Eos % 0.0 % [facility] Eosinophils Abs 0.0 0.0 - 0.4 x10(3)/mc L [facility] Basophil % 0.1 % [facility] Baso Absolute 0.0 0.0 - 0.1 x10(3)/mc L [facility] Immature Gran % 0.80 % [facility] Comment: Immature granulocytes(IG's)percentage and absolute count will include metamyelocytes, myelocytes, and promyelocytes. Blood smears from CBCs yielding IG's will be scanned manually for concordance. If this scan disagrees with the automated IG or if promyelocytes are noted, a manual differential will be performed. Immature Gran Absolute 0.07(H) 0.00 - 0.04 x10(3)/mc L [facility] Blood 05/13/2023 1:15 AM EDT 05/13/2023 1:29 AM EDT Narrative Resulting Agency Comment Spec In Lab Lorri TOBAR HEMATOLOGY ORDERABLE S [facility] [place] [address] * (ABNORMAL) Hemogram (05/13/2023 1:15 AM EDT) White Blood Cell 8.6 4.0 - 9.5 x10(3)/mc L [facility] Red Blood Cell 2.37(L) 4.00 - 5.21 x10(6)/mc L [facility] Hemoglobin 7.8(L) 11.7 - 15.5 g/dL [facility] Hematocrit 22.2(L) 35.7 - 45.8 % [facility] Mean Cell Volume 93.7 82.6 - 94.4 fL [facility] Mean Cell Hemoglobin 32.9(H) 27.1 - 32.0 pg [facility] Mean Cell Hemoglobin Concentration 35.1(H) 31.7 - 35.0 g/dL [facility] Platelet 130(L) 145 - 357 x10(3)/mc L [facility] RDW Standard Deviation 41.7 37.0 - 46.0 fL [facility] RDW coefficient of variation 12.5 11.5 - 14.1 % [facility] Mean Platelet Volume 10.2 7.6 - 12.9 fL [facility] NRBC% auto 0.5 % [facility] NRBC Absolute 0.040(H) 0.000 - 0.000 x10(3)/ L [facility] Blood 05/13/2023 1:15 AM EDT 05/13/2023 1:29 AM EDT Narrative Resulting Agency Comment Spec In Lab Lorri TOBAR HEMATOLOGY ORDERABLE S [facility] [place] [address] * (ABNORMAL) Hepatic Function Panel (05/13/2023 1:15 AM EDT) Protein, Total 5.5(L) 6.1 - 8.0 g/dL [facility] Albumin 3.0(L) 3.2 - 5.2 g/dL [facility] Aspartate Aminotransferase 792(H) 0 - 30 unit/L [facility] Alanine Aminotransferase 903(H) 0 - 30 unit/L [facility] Alkaline Phosphatase 85 35 - 105 unit/L [facility] Bilirubin, Total 0.5 0.2 - 1.3 mg/dL [facility] Bilirubin, Direct 0.3 0.0 - 0.3 mg/dL [facility] Blood 05/13/2023 1:15 AM EDT 05/13/2023 1:29 AM EDT Narrative Resulting Agency Comment Spec In Lab Alirio Hudson MD CHEMISTRY ORDERABLE S [facility] [place] [address] * (ABNORMAL) Basic Metabolic Panel (non-fasting) (05/13/2023 1:15 AM EDT) Glucose 107 65 - 199 mg/dL [facility] Comment:Diabetes: >=200 mg/d L plus symptoms Blood Urea Nitrogen 82(H) 8 - 18 mg/dL [facility] Creatinine 3.15(H) 0.70 - 1.20 mg/dL [facility] Comment:result rechecked-NINAJ Sodium 132(L) 135 - 145 mmol/L [facility] Potassium 3.8 3.5 - 5.0 mmol/L [facility] Comment: Please note: ??Patients with WBC >100,000 may have falsely elevated Potassium levels. ??For accurate Potassium quantification in these patients send serum separator tube (gold top) for subsequent determinations. ??Contact the Clinical Chemistry Laboratory if there are any questions. Chloride 95(L) 98 - 107 mmol/L [facility] Carbon Dioxide 20(L) 22 - 31 mmol/L [facility] Anion Gap 17(H) 5 - 15 mmol/L [facility] Calcium 8.3(L) 8.5 - 10.5 mg/dL [facility] Est Glomerular Filtration Rate 16(L) >=60 mL/min/1. 73 m?? [facility] Comment: This patient's estimated GFR was [...] Lab Alirio Hudson MD CHEMISTRY ORDERABLE S [facility] [place] [address] * (ABNORMAL) BLOOD GAS 2 ARTERIAL (05/12/2023 3:57 PM EDT) pH, Arterial 7.39 7.35 - 7.45 [facility] PCO2, Arterial 33(L) 35 - 45 mmHg [facility] PO2, Arterial 101 85 - 104 mmHg [facility] Bicarbonate, Arterial 19.5(L) 20.0 - 26.0 mmol/L [facility] Base Excess, Arterial -5.5(L) -3.0 - 3.0 mmol/L [facility] Hgb Blood Gas 9.8(L) 11.7 - 15.5 g/dL [facility] Oxyhemoglobin, Arterial 95.2 94.0 - 97.0 % [facility] Carboxyhemoglob in, Arterial 0.2 % [facility] Comment: Nonsmokers: 0.5-1.5% COHB Smokers: Variable, but usually less than 10% Toxic: 20-30% COHB Lethal: Greater than 60% COHB Methemoglobin, Arterial 0.8 <=1.5 % [facility] Na Whole Blood 129(L) 135 - 145 mmol/L [facility] K Whole Blood 3.8 3.5 - 5.0 mmol/L [facility] Comment: Please note: Patients with WBC >100,000 may have falsely elevated Potassium levels. Contact the Clinical Chemistry Laboratory if there are any questions. ICa Whole Blood 1.05(L) 1.15 - 1.33 mmol/L [facility] Comment: Note: ??Total bilirubin higher than 20 mg/dL may lead to falsely low ionized calcium. CL Whole Blood 96(L) 98 - 107 mmol/L [facility] Gluc Whole Bld 178 65 - 199 mg/dL [facility] Comment:Diabetes: >=200 mg/d L plus symptoms. Lactate WB 1.5 0.5 - 2.2 mmol/L [facility] FIO2 Art 40 % [facility] PF Ratio Art 252 [facility] Blood 05/12/2023 3:57 PM EDT 05/12/2023 3:57 PM EDT Alirio Hudson MD POINT OF CARE TEST ORDERABLES Performing Organization Address [facility] Co de Phone Number [facility] [place] [address] * (ABNORMAL) Coox2 (05/12/2023 2:25 PM EDT) pO2, Coox 37 mmHg [facility] Hgb Blood Gas 9.5(L) 11.7 - 15.5 g/dL [facility] Oxyhemoglobin, Coox 59.9 % [facility] Carboxyhemoglo bin, Coox 0.3 % [facility] Comment: Nonsmokers: 0.5-1.5% COHB Smokers: Variable, but usually less than 10% Toxic: 20-30% COHB Lethal: Greater than 60% COHB Methemoglobin, Coox 0.7 <=1.5 % [facility] Source Coox Mixed Venous [facility] Blood 05/12/2023 2:25 PM EDT 05/12/2023 2:25 PM EDT Alirio Hudson MD POINT OF CARE TEST ORDERABLES Performing Organization Address [facility] Co de Phone Number [facility] [place] [address] * (ABNORMAL) BLOOD GAS 2 ARTERIAL (05/12/2023 2:23 PM EDT) pH, Arterial 7.37 7.35 - 7.45 [facility] PCO2, Arterial 36 35 - 45 mmHg [facility] PO2, Arterial 102 85 - 104 mmHg [facility] Bicarbonate, Arterial 20.4 20.0 - 26.0 mmol/L [facility] Base Excess, Arterial -4.8(L) -3.0 - 3.0 mmol/L [facility] Hgb Blood Gas 12.7 11.7 - 15.5 g/dL [facility] Oxyhemoglobin, Arterial 95.4 94.0 - 97.0 % [facility] Carboxyhemoglob in, Arterial 0.3 % [facility] Comment: Nonsmokers: 0.5-1.5% COHB Smokers: Variable, but usually less than 10% Toxic: 20-30% COHB Lethal: Greater than 60% COHB Methemoglobin, Arterial 0.7 <=1.5 % [facility] Na Whole Blood 129(L) 135 - 145 mmol/L [facility] K Whole Blood 3.7 3.5 - 5.0 mmol/L [facility] Comment: Please note: Patients with WBC >100,000 may have falsely elevated Potassium levels. Contact the Clinical Chemistry Laboratory if there are any questions. ICa Whole Blood 1.05(L) 1.15 - 1.33 mmol/L [facility] Comment: Note: ??Total bilirubin higher than 20 mg/dL may lead to falsely low ionized calcium. CL Whole Blood 95(L) 98 - 107 mmol/L [facility] Gluc Whole Bld 168 65 - 199 mg/dL [facility] Comment:Diabetes: >=200 mg/d L plus symptoms. Lactate WB 1.8 0.5 - 2.2 mmol/L [facility] FIO2 Art 40 % [facility] PF Ratio Art 255 [facility] Blood 05/12/2023 2:23 PM EDT 05/12/2023 2:23 PM EDT Alirio Hudson MD POINT OF CARE TEST ORDERABLES [facility] [place] [address] * (ABNORMAL) Troponin (05/12/2023 2:05 PM EDT) Troponin-T, High Sensitivity 1,022(H) <=14 ng/L [facility] Comment: This patient's troponin T concentration [...] [facility] Test Catalog Reference: Fourth Sixes Definition of Myocardial Infarction. Journal of the [place] [employer] 2018;72:1733-1448 Blood 05/12/2023 2:05 PM EDT 05/12/2023 2:14 PM EDT Narrative Resulting Agency Comment Spec In Lab Alirio Hudson MD CHEMISTRY ORDERABLE S [facility] [place] [address] * (ABNORMAL) Hemoglobin (05/12/2023 2:05 PM EDT) Hemoglobin 8.5(L) 11.7 - 15.5 g/dL [facility] Blood 05/12/2023 2:05 PM EDT 05/12/2023 2:14 PM EDT Narrative Resulting Agency Comment Spec In Lab Alirio Hudson MD HEMATOLOGY ORDERABL ES Performing Organization Address [facility] Co de Phone Number [facility] [place] [address] * Potassium (05/12/2023 2:05 PM EDT) Potassium 3.9 3.5 - 5.0 mmol/L [facility] Comment: Please note: ??Patients with WBC [...] MD CHEMISTRY ORDERABLE S Performing Organization Address [facility] Co de Phone Number [facility] [place] [address] * (ABNORMAL) BLOOD GAS 2 ARTERIAL (05/12/2023 11:05 AM EDT) pH, Arterial 7.34(L) 7.35 - 7.45 [facility] PCO2, Arterial 42 35 - 45 mmHg [facility] PO2, Arterial 73(L) 85 - 104 mmHg [facility] Bicarbonate, Arterial 22.1 20.0 - 26.0 mmol/L [facility] Base Excess, Arterial -3.6(L) -3.0 - 3.0 mmol/L [facility] Hgb Blood Gas 9.3(L) 11.7 - 15.5 g/dL [facility] Oxyhemoglobin, Arterial 89.3(L) 94.0 - 97.0 % [facility] Carboxyhemoglob in, Arterial 0.2 % [facility] Comment: Nonsmokers: 0.5-1.5% COHB Smokers: Variable, but usually less than 10% Toxic: 20-30% COHB Lethal: Greater than 60% COHB Methemoglobin, Arterial 0.9 <=1.5 % [facility] Na Whole Blood 131(L) 135 - 145 mmol/L [facility] K Whole Blood 3.8 3.5 - 5.0 mmol/L [facility] Comment: Please note: Patients with WBC >100,000 may have falsely elevated Potassium levels. Contact the Clinical Chemistry Laboratory if there are any questions. ICa Whole Blood 1.04(L) 1.15 - 1.33 mmol/L [facility] Comment: Note: ??Total bilirubin higher than 20 mg/dL may lead to falsely low ionized calcium. CL Whole Blood 96(L) 98 - 107 mmol/L [facility] Gluc Whole Bld 152 65 - 199 mg/dL [facility] Comment:Diabetes: >=200 mg/d L plus symptoms. Lactate WB 2.8(H) 0.5 - 2.2 mmol/L [facility] FIO2 Art 40 % [facility] PF Ratio Art 182 [facility] Blood 05/12/2023 11:0 5 AM EDT 05/12/2023 11:05 AM EDT Alirio Hudson MD POINT OF CARE TEST ORDERABLES Performing Organization Address City/State/[facility] Co de Phone Number [facility] [place] [address] * (ABNORMAL) BLOOD GAS 2 ARTERIAL (05/12/2023 10:14 AM EDT) pH, Arterial 7.18(Criti gabrielle) 7.35 - 7.45 [facility] Comment:Noted by musical instrument mechanic. PCO2, Arterial 45 35 - 45 mmHg [facility] PO2, Arterial 186(H) 85 - 104 mmHg [facility] Bicarbonate, Arterial 16.2(L) 20.0 - 26.0 mmol/L [facility] Base Excess, Arterial -12.2(L) -3.0 - 3.0 mmol/L [facility] Hgb Blood Gas 10.0(L) 11.7 - 15.5 g/dL [facility] Oxyhemoglobin, Arterial 97.0 94.0 - 97.0 % [facility] Carboxyhemoglob in, Arterial 0.2 % [facility] Comment: Nonsmokers: 0.5-1.5% COHB Smokers: Variable, but usually less than 10% Toxic: 20-30% COHB Lethal: Greater than 60% COHB Methemoglobin, Arterial 0.9 <=1.5 % [facility] Na Whole Blood 129(L) 135 - 145 mmol/L [facility] K Whole Blood 3.6 3.5 - 5.0 mmol/L [facility] Comment: Please note: Patients with WBC >100,000 may have falsely elevated Potassium levels. Contact the Clinical Chemistry Laboratory if there are any questions. ICa Whole Blood 1.10(L) 1.15 - 1.33 mmol/L [facility] Comment: Note: ??Total bilirubin higher than 20 mg/dL may lead to falsely low ionized calcium. CL Whole Blood 97(L) 98 - 107 mmol/L [facility] Gluc Whole Bld 161 65 - 199 mg/dL [facility] Comment:Diabetes: >=200 mg/d L plus symptoms. Lactate WB 3.3(H) 0.5 - 2.2 mmol/L [facility] FIO2 Art 100 % [facility] PF Ratio Art 186 [facility] Blood 05/12/2023 10:1 4 AM EDT 05/12/2023 10:14 AM EDT Alirio Hudson MD POINT OF CARE TEST ORDERABLES Performing Organization Address City/State/[facility] Co de Phone Number [facility] [place] [address] * EKG 12 Lead (05/12/2023 10:10 AM EDT) Ventricular rate 116 BPM MUSE SYSTEM Atrial Rate 116 BPM MUSE SYSTEM P-R Interval 158 ms MUSE SYSTEM QRS Duration 114 ms MUSE SYSTEM Q-T Interval 348 ms MUSE SYSTEM QTC Calculated (Bezet) 483 ms MUSE SYSTEM Calculated P [place] 37 degrees MUSE SYSTEM Calculated R [place] 31 degrees MUSE SYSTEM Calculated T [place] -138 degrees MUSE SYSTEM INTERPRETATION Sinus tachycardia [...] interpretation Confirmed by fellow MD Anuja, Jim ([id number]) on 05/12/2023 1:04:20 PM Confirmed by MD Mono, Eleni ([id number]) on 05/12/2023 9:28:34 PM MUSE SYSTEM 05/12/2023 [...] questions please contact the health child care provider that requested your imaging first. ? Electronically signed by: Chyna Johnson MD, [facility] ??([phone]), at 05/12/2023 10:08 AM Narrative 05/12/2023 10:08 AM EDT EXAMINATION: XR CHEST ONE VIEW CLINICAL HISTORY: Post TAVR TECHNIQUE: 1 view of the chest COMPARISON: Chest radiograph from earlier today FINDINGS: Interval placement of endotracheal tube with tip terminating 2 cm above the shira. Interval placement of enteric tube projecting along the expected course of the esophagus and outside the ysjzx-lv-gdjb. Interval retraction of right IJ approach pulmonary [...] expected course ofthe esophagus and outside the qmhfb-mz-jftw. Interval retraction of right IJ approach pulmonary [...] have questions please contactthe health child care provider that requested your imaging first. Electronically signed by: Chyna Johnson MD, [facility]([phone]), at 05/12/2023 10:08 AM Alirio Hudson MD [...] 1955 ? Height: 154 cm ? Account: [id number] Age: 67 yrs ? Weight: 75 kg Gender: Female ?BSA: 1.7 m2 Ordering Physician: RADHA HOLLINS Referring Physician: RADHA HOLLINS Performed By: Dilma Bee RDCS Reason For Study: Guidance for TAVR procedure Exam Location: [facility]. Interpretation Summary PRE TAVR: There is [...] mL/m2. POST TAVR: Normal function of the fihay-uh-lhjxw prosthesis. See below for hemodynamic parameters. Slight improvement in left and right ventricular systolic function. LVEF now 20-25%. No pericardial effusion. See report for additional findings. Procedure Limited - 49739. Doppler - 72386. Color Doppler - 82003. Left Ventricle Left ventricle is of normal [...] Date: 307:33 AMBP: 96/63 mmHg Patient Location: [address] : 1955 Height: 154 cm Account: [id number] Age: 67 yrs Weight: 75 kg Gender: Female BSA: 1.7 m2 Ordering Physician: RADHA HOLLINS Referring Physician: RADHA HOLLINS Performed By: Dilma Bee RDCS Reason For Study: Guidance for TAVR procedure Exam Location: [facility]. Interpretation Summary PRE TAVR: There is [...] 28mL/m2. POST TAVR: Normal function of the mkqfl-ki-upeqw prosthesis. See belowfor hemodynamic parameters. Slight improvement in left and right ventricularsystolic function. LVEF now 20-25%. No pericardial effusion. See report for additional findings. Procedure Limited - 03095. Doppler - 74600. Color Doppler - 08189. Left Ventricle Left ventricle is of normal [...] Modality Other Narrative 05/12/2023 2:37 PM EDT ?[facility] ? Cardiac Catheterization/Intervention Report ? Patient Name: Kirstie, Purnima M. ? Procedure Date: 05/12/2023 ? A #: [id number] ? Primary Physician: Antelmo Sharma ? Case #: [id number] ? File Name: [id number] ? Catheterization Order Number: [id number] ? [facility] ? Final Report [place], [place] ? Patient Name: ? Purnima M. Kirstie ? ID#: ?[id number] ? : ?1955 ? Procedure Date: ? May 12, 2023 ? Case #: ? [id number] ? Room: ? 6 ? Case Physicians: ?Antelmo Sharma M.D. ?Start: ?08:03 ?Alirio Hudson M.D. ?Admission: ??05/08/2023 ?Lynda Mgcowan M.D. ? Discharge: ??05/22/2023 ?Fellow: ? Kristied Bhavna Tejeda. ? Referring Physician: ??Mario Alberto Chin M.D. ? Procedures: ?* Coronary Angiography ?* Left Heart Catheterization ?* Coronary Stent Insertion ?* Transcatheter Aortic Valve Replacement ?* Vascular Closure Device Deployment ?* Temporary Pacemaker Insertion In Eyelet Riveter ?* Endotracheal Intubation By Non-Cath Physician ?* [...] was designated as ASA Class IV. The [facility] clinical ?frailty scale is 4: Vulnerable. ? [...] guide. ??A premounted 4.00 x 30 mm Silas Buncombe (MINNA) was ? deployed with a maximum [...] calculated STS risk score was 30.1%. A bihgi-or-okosf ?procedure was performed on the pre-existing bioprosthetic stented ?prosthesis. The priority of the yuycz-za-fshtg procedure was Elective. ?The procedure was performed [...] Lai 3 Ultra RESILIA 23 mm THV (s/i=[id number]) transcatheter ?valve was inserted using standard technique. [...] was it given in the ?clinical laboratory medical director. ?Recommended anti-platelet/anti-thrombotic regimen: ?Continue aspirin 81 mg daily for indefinitely. ?These recommendations are made at the time of the intervention. Patient ?and provider preferences or a changing clinical situation may require ?modification of this regimen. Consult [facility] Interventional Cardiology for ?questions. ? Conclusions: ?* [...] regimen. ? Comments: ?Successful right transfemoral TAVR Fepgc-kx-Zdqar with a 23 mm Lai 3 ?THV. [...] site angiography, ?temporary pacemaker in clinical laboratory medical director, intubation-non cath physician, vascular ?closure device, transthoracic echo ??and TAVR. Dr. Alirio Hudson M.D. ?performed the left heart catheterization, access site angiography, ?temporary pacemaker in clinical laboratory medical director, vascular closure device, transthoracic ?echo , TAVR and CPR during cath. Dr. Lynda Mcgowan M.D. performed the ABG, ?anesthesia and intubation-non cath physician. ? Antelmo Sharma M.D. ? Electronically Signed by: Antelmo Sharma M.D. ? Report Finalized: 05/12/2023 ??14:31 ? Report Last Ammended: 07/01/2023 ??11:30 ? Procedure Note Antelmo Sharma MD - 07/01/2023 [facility] Cardiac Catheterization/Intervention Report Patient Name: Purnima Thacker Procedure Date: 05/12/2023 A #: [id number] Primary Physician: Antelmo Sharma Case #: [id number] File Name: [id number] Catheterization Order Number: [id number] [facility] FinalReport [place], [place] Patient Name: Purnima Thacker ID#:[id number] :1955 Procedure Date: May 12, 2023 Case #: [id number] Room: 6 Case Physicians: Antelmo Sharma M.D. Start: 08:03 Alirio Hudson M.D. Admission:05/08/2023 Lynda Mcgowan M.D. Discharge:05/22/2023 Fellow: Rebekah Tejeda M.D. Referring Physician: Mario Alberto Chin M.D. Procedures: * Coronary Angiography * Left Heart Catheterization * Coronary Stent Insertion * Transcatheter Aortic Valve Replacement * Vascular Closure Device Deployment * Temporary Pacemaker Insertion In Eyelet Riveter * Endotracheal Intubation By Non-Cath Physician * [...] A premounted 4.00 x 30 mm Nils Buncombe (MINNA) was deployed with a maximum inflation [...] calculated STS risk score was 30.1%. A tiemn-wf-kqvmn procedure was performed on the pre-existing bioprosthetic stented prosthesis. The priority of the gpwtb-om-icrcs procedure wasElective. The procedure was performed under Moderate sedation performed byLynda Mcgowan M.D. (see anesthesia report for additional details). Alirio Hudson M.D. participated in the case (see Cardiac Surgery reportfor additional details). The TAVR sheath was a 14 Fr Corona eSheath Introducer and theaccess site was femoral. Rapid ventricular pacing was performed. An Corona Lai 3 Ultra RESILIA 23 mm THV (s/p=[id number])transcatheter valve was inserted using standard technique. The [...] nor was it given inthe clinical laboratory medical director. Recommended anti-platelet/anti-thrombotic regimen: Continue aspirin 81 mg daily for indefinitely. These recommendations are made at the time of the intervention.Patient and provider preferences or a changing clinical situation mayrequire modification of this regimen. Consult [facility] Interventional Cardiologyfor questions. Conclusions: * Nonobstructive disease [...] this regimen. Comments: Successful right transfemoral TAVR Rejmr-hq-Lwfpu with a 23 mmSapien 3 THV. We [...] site angiography, temporary pacemaker in clinical laboratory medical director, intubation-non cath physician,vascular closure device, transthoracic echo and TAVR. Dr. Alirio Hudson M.D. performed the left heart catheterization, access site angiography, temporary pacemaker in clinical laboratory medical director, vascular closure device,transthoracic echo , TAVR and [...] pH, POC 7.20(Crit ical) 7.35 - 7.45 [facility] Comment:Critical value OK, C C Lab. pCO2, POC 42 35 - 45 mmHg [facility] pO2, POC 260(H) 85 - 104 mmHg [facility] Base Excess, POC -11.0(L) -3.0 - 3.0 mmol/L [facility] Bicarbonate, POC 16.7(L) 20.0 - 26.0 mmol/L [facility] Sodium, POC 129(L) 135 - 145 mmol/L [facility] POC Potassium 3.8 3.5 - 5.0 mmol/L [facility] Ionized Calcium, POC 1.12(L) 1.15 - 1.33 mmol/L [facility] POC Hematocrit 23.0(L) 34.0 - 45.0 % [facility] POC Calc Hgb 7.8(L) 11.2 - 15.7 g/dL [facility] Comment:The calculation of h emoglobin from hematocrit assumes a normal MCHC. POC Bgas Loc CC Lab [facility] Blood 05/12/2023 8:50 AM EDT 05/13/2023 12:00 PM EDT Alirio Hudson MD CHEMISTRY ORDERABLE S [facility] [place] [address] * (ABNORMAL) Point of Care Blood Gas Historical (05/12/2023 8:10 AM EDT) pH, POC 7.27(Crit ical) 7.35 - 7.45 [facility] Comment:Critical value OK, C C Lab. pCO2, POC 37 35 - 45 mmHg [facility] pO2, POC 29(Critic al) 85 - 104 mmHg [facility] Comment:Critical value OK, C C Lab. Base Excess, POC -10.0(L) -3.0 - 3.0 mmol/L [facility] Bicarbonate, POC 16.7(L) 20.0 - 26.0 mmol/L [facility] Sodium, POC 123(L) 135 - 145 mmol/L [facility] POC Potassium 4.0 3.5 - 5.0 mmol/L [facility] Ionized Calcium, POC 1.12(L) 1.15 - 1.33 mmol/L [facility] POC Hematocrit 27.0(L) 34.0 - 45.0 % [facility] POC Calc Hgb 9.2(L) 11.2 - 15.7 g/dL [facility] Comment:The calculation of h emoglobin from hematocrit assumes a normal MCHC. POC Bgas Loc CC Lab [facility] Blood 05/12/2023 8:10 AM EDT 05/13/2023 12:00 PM EDT Alirio Hudson MD CHEMISTRY ORDERABLE S Performing Organization Address City/[facility]/ZIP Co de Phone Number [facility] [place] [address] * (ABNORMAL) Lactate, whole blood, send to lab ([facility]) (05/12/2023 7:00 AM EDT) Lactate WB 2.4(H) 0.5 - 2.2 mmol/L [facility] Blood 05/12/2023 7:00 AM EDT 05/12/2023 7:09 AM EDT Narrative Resulting Agency Comment Spec In Lab Radha Hollins MD CHEMISTRY ORDERABL ES Performing Organization Address [facility] Co de Phone Number [facility] [place] [address] * (ABNORMAL) Comprehensive metabolic panel (non-fasting) (05/12/2023 6:00 AM EDT) Glucose 167 65 - 199 mg/dL [facility] Comment:Diabetes: >=200 mg/d L plus symptoms Blood Urea Nitrogen 67(H) 8 - 18 mg/dL [facility] Creatinine 2.01(H) 0.70 - 1.20 mg/dL [facility] Sodium 131(L) 135 - 145 mmol/L [facility] Potassium 4.3 3.5 - 5.0 mmol/L [facility] Comment: Please note: ??Patients with WBC >100,000 may have falsely elevated Potassium levels. ??For accurate Potassium quantification in these patients send serum separator tube (gold top) for subsequent determinations. ??Contact the Clinical Chemistry Laboratory if there are any questions. Chloride 97(L) 98 - 107 mmol/L [facility] Carbon Dioxide 14(L) 22 - 31 mmol/L [facility] Anion Gap 20(H) 5 - 15 mmol/L [facility] Calcium 8.6 8.5 - 10.5 mg/dL [facility] Protein, Total 6.3 6.1 - 8.0 g/dL [facility] Albumin 3.5 3.2 - 5.2 g/dL [facility] Aspartate Aminotransferase 1,435(H) 0 - 30 unit/L [facility] Alanine Aminotransferase 1,174(H) 0 - 30 unit/L [facility] Alkaline Phosphatase 100 35 - 105 unit/L [facility] Bilirubin, Total 0.9 0.2 - 1.3 mg/dL [facility] Est Glomerular Filtration Rate 27(L) >=60 mL/min/1. 73 m?? [facility] Comment: This patient's estimated GFR was [...] Lab Radha Hollins MD CHEMISTRY ORDERABL ES [facility] [place] [address] * (ABNORMAL) Coox2 (05/12/2023 5:08 AM EDT) pO2, Coox 24 mmHg [facility] Hgb Blood Gas 10.4(L) 11.7 - 15.5 g/dL [facility] Oxyhemoglobin, Coox 30.7 % [facility] Carboxyhemoglo bin, Coox 0.3 % [facility] Comment: Nonsmokers: 0.5-1.5% COHB Smokers: Variable, but usually less than 10% Toxic: 20-30% COHB Lethal: Greater than 60% COHB Methemoglobin, Coox 0.8 <=1.5 % [facility] Source Coox Mixed Venous [facility] Blood 05/12/2023 5:08 AM EDT 05/12/2023 5:08 AM EDT Radha Hollins MD POINT OF CARE TEST ORDERABLES Performing Organization Address City/[facility] Co de Phone Number [facility] [place] [address] * (ABNORMAL) Coox2 (05/12/2023 3:21 AM EDT) pO2, Coox 25 mmHg [facility] Hgb Blood Gas 10.8(L) 11.7 - 15.5 g/dL [facility] Oxyhemoglobin, Coox 32.7 % [facility] Carboxyhemoglo bin, Coox 0.3 % [facility] Comment: Nonsmokers: 0.5-1.5% COHB Smokers: Variable, but usually less than 10% Toxic: 20-30% COHB Lethal: Greater than 60% COHB Methemoglobin, Coox 0.7 <=1.5 % [facility] Source Coox Mixed Venous [facility] Blood 05/12/2023 3:21 AM EDT 05/12/2023 3:21 AM EDT Radha Hollins MD POINT OF CARE TEST ORDERABLES Performing Organization Address [facility] Co de Phone Number [facility] [place] [address] * (ABNORMAL) BLOOD GAS 2 ARTERIAL (05/12/2023 3:18 AM EDT) pH, Arterial 7.34(L) 7.35 - 7.45 [facility] PCO2, Arterial 30(L) 35 - 45 mmHg [facility] PO2, Arterial 72(L) 85 - 104 mmHg [facility] Bicarbonate, Arterial 16.0(L) 20.0 - 26.0 mmol/L [facility] Base Excess, Arterial -9.8(L) -3.0 - 3.0 mmol/L [facility] Hgb Blood Gas 11.0(L) 11.7 - 15.5 g/dL [facility] Oxyhemoglobin, Arterial 89.8(L) 94.0 - 97.0 % [facility] Carboxyhemoglob in, Arterial 0.3 % [facility] Comment: Nonsmokers: 0.5-1.5% COHB Smokers: Variable, but usually less than 10% Toxic: 20-30% COHB Lethal: Greater than 60% COHB Methemoglobin, Arterial 0.7 <=1.5 % [facility] Na Whole Blood 131(L) 135 - 145 mmol/L [facility] K Whole Blood 4.2 3.5 - 5.0 mmol/L [facility] Comment: Please note: Patients with WBC >100,000 may have falsely elevated Potassium levels. Contact the Clinical Chemistry Laboratory if there are any questions. ICa Whole Blood 1.12(L) 1.15 - 1.33 mmol/L [facility] Comment: Note: ??Total bilirubin higher than 20 mg/dL may lead to falsely low ionized calcium. CL Whole Blood 100 98 - 107 mmol/L [facility] Gluc Whole Bld 160 65 - 199 mg/dL [facility] Comment:Diabetes: >=200 mg/d L plus symptoms. Lactate WB 2.7(H) 0.5 - 2.2 mmol/L [facility] Flow Art 5.0 LPM [facility] Blood 05/12/2023 3:18 AM EDT 05/12/2023 3:18 AM EDT Radha Hollins MD POINT OF CARE TEST ORDERABLES [facility] [place] [address] * (ABNORMAL) Coox2 (05/12/2023 1:14 AM EDT) pO2, Coox 28 mmHg [facility] Hgb Blood Gas 10.9(L) 11.7 - 15.5 g/dL [facility] Oxyhemoglobin, Coox 37.3 % [facility] Carboxyhemoglo bin, Coox 0.3 % [facility] Comment: Nonsmokers: 0.5-1.5% COHB Smokers: Variable, but usually less than 10% Toxic: 20-30% COHB Lethal: Greater than 60% COHB Methemoglobin, Coox 0.5 <=1.5 % [facility] Source Coox Mixed Venous [facility] Blood 05/12/2023 1:14 AM EDT 05/12/2023 1:14 AM EDT Radha Hollins MD POINT OF CARE TEST ORDERABLES [facility] [place] [address] * (ABNORMAL) BLOOD GAS 2 ARTERIAL (05/12/2023 1:06 AM EDT) pH, Arterial 7.34(L) 7.35 - 7.45 [facility] PCO2, Arterial 30(L) 35 - 45 mmHg [facility] PO2, Arterial 81(L) 85 - 104 mmHg [facility] Bicarbonate, Arterial 15.7(L) 20.0 - 26.0 mmol/L [facility] Base Excess, Arterial -10.1(L) -3.0 - 3.0 mmol/L [facility] Hgb Blood Gas 11.0(L) 11.7 - 15.5 g/dL [facility] Oxyhemoglobin, Arterial 92.3(L) 94.0 - 97.0 % [facility] Carboxyhemoglob in, Arterial 0.2 % [facility] Comment: Nonsmokers: 0.5-1.5% COHB Smokers: Variable, but usually less than 10% Toxic: 20-30% COHB Lethal: Greater than 60% COHB Methemoglobin, Arterial 0.6 <=1.5 % [facility] Na Whole Blood 131(L) 135 - 145 mmol/L [facility] K Whole Blood 4.2 3.5 - 5.0 mmol/L [facility] Comment: Please note: Patients with WBC >100,000 may have falsely elevated Potassium levels. Contact the Clinical Chemistry Laboratory if there are any questions. ICa Whole Blood 1.13(L) 1.15 - 1.33 mmol/L [facility] Comment: Note: ??Total bilirubin higher than 20 mg/dL may lead to falsely low ionized calcium. CL Whole Blood 99 98 - 107 mmol/L [facility] Gluc Whole Bld 132 65 - 199 mg/dL [facility] Comment:Diabetes: >=200 mg/d L plus symptoms. Lactate WB 2.7(H) 0.5 - 2.2 mmol/L [facility] Flow Art 5.0 LPM [facility] Blood 05/12/2023 1:06 AM EDT 05/12/2023 1:06 AM EDT Radha Hollins MD POINT OF CARE TEST ORDERABLES [facility] [place] [address] * (ABNORMAL) Differential, Automated (05/12/2023 1:05 AM EDT) Neutrophil % 83.3 % [facility] Neutrophil Absolute 7.49(H) 1.70 - 6.10 x10(3)/mc L [facility] Lymph % 7.1 % [facility] Lymphocytes Abs 0.6(L) 0.9 - 3.2 x10(3)/mc L [facility] Monocyte % 8.9 % [facility] Monocyte Abs 0.8 0.3 - 0.9 x10(3)/mc L [facility] Eos % 0.0 % [facility] Eosinophils Abs 0.0 0.0 - 0.4 x10(3)/mc L [facility] Basophil % 0.1 % [facility] Baso Absolute 0.0 0.0 - 0.1 x10(3)/mc L [facility] Immature Gran % 0.60 % [facility] Comment: Immature granulocytes(IG's)percentage and absolute count will include metamyelocytes, myelocytes, and promyelocytes. Blood smears from CBCs yielding IG's will be scanned manually for concordance. If this scan disagrees with the automated IG or if promyelocytes are noted, a manual differential will be performed. Immature Gran Absolute 0.05(H) 0.00 - 0.04 x10(3)/mc L [facility] Blood 05/12/2023 1:05 AM EDT 05/12/2023 1:15 AM EDT Narrative Resulting Agency Comment Spec In Lab Gianni Fletcher MD HEMATOLOGY ORDERABLE S [facility] [place] [address] * (ABNORMAL) Hemogram (05/12/2023 1:05 AM EDT) White Blood Cell 9.0 4.0 - 9.5 x10(3)/mc L [facility] Red Blood Cell 3.01(L) 4.00 - 5.21 x10(6)/mc L [facility] Hemoglobin 9.8(L) 11.7 - 15.5 g/dL [facility] Hematocrit 28.7(L) 35.7 - 45.8 % [facility] Mean Cell Volume 95.3(H) 82.6 - 94.4 fL [facility] Mean Cell Hemoglobin 32.6(H) 27.1 - 32.0 pg [facility] Mean Cell Hemoglobin Concentration 34.1 31.7 - 35.0 g/dL [facility] Platelet 186 145 - 357 x10(3)/mc L [facility] RDW Standard Deviation 43.7 37.0 - 46.0 fL [facility] RDW coefficient of variation 12.7 11.5 - 14.1 % [facility] Mean Platelet Volume 10.3 7.6 - 12.9 fL [facility] NRBC% auto 0.0 % [facility] NRBC Absolute 0.000 0.000 - 0.000 x10(3)/mc L [facility] Blood 05/12/2023 1:05 AM EDT 05/12/2023 1:15 AM EDT Narrative Resulting Agency Comment Spec In Lab Gianni Fletcher MD HEMATOLOGY ORDERABLE S [facility] [place] [address] * (ABNORMAL) Comprehensive metabolic panel (non-fasting) (05/12/2023 1:05 AM EDT) Glucose 141 65 - 199 mg/dL [facility] Comment:Diabetes: >=200 mg/d L plus symptoms Blood Urea Nitrogen 63(H) 8 - 18 mg/dL [facility] Creatinine 1.86(H) 0.70 - 1.20 mg/dL [facility] Sodium 131(L) 135 - 145 mmol/L [facility] Potassium 4.4 3.5 - 5.0 mmol/L [facility] Comment: Please note: ??Patients with WBC >100,000 may have falsely elevated Potassium levels. ??For accurate Potassium quantification in these patients send serum separator tube (gold top) for subsequent determinations. ??Contact the Clinical Chemistry Laboratory if there are any questions. Chloride 96(L) 98 - 107 mmol/L [facility] Carbon Dioxide 14(L) 22 - 31 mmol/L [facility] Anion Gap 21(H) 5 - 15 mmol/L [facility] Calcium 9.0 8.5 - 10.5 mg/dL [facility] Protein, Total 6.6 6.1 - 8.0 g/dL [facility] Albumin 3.9 3.2 - 5.2 g/dL [facility] Aspartate Aminotransferase 1,227(H) 0 - 30 unit/L [facility] Alanine Aminotransferase 1,097(H) 0 - 30 unit/L [facility] Alkaline Phosphatase 108(H) 35 - 105 unit/L [facility] Bilirubin, Total 1.0 0.2 - 1.3 mg/dL [facility] Est Glomerular Filtration Rate 29(L) >=60 mL/min/1. 73 m?? [facility] Comment: This patient's estimated GFR was [...] Lab Radha Hollins MD CHEMISTRY ORDERABL ES [facility] [place] [address] * XR Chest One View (05/12/2023 1:00 AM EDT) Anatomical Region Laterality Modality Chest N/A Digital Radiogra phy Impressions 05/12/2023 3:16 AM EDT * ??Right IJV approach pulmonary arterial catheter terminates in the right interlobar pulmonary artery near its bifurcation. Please retract 5 to 7 cm. * ??Increased pulmonary vascular congestion, interstitial/alveolar edema, and medium-sized bilateral pleural effusions. I, Will oRwe, discussed the above findings with Dr. Klaudia Reid on 05/12/2023 at 3:15 AM and verified understanding. Thank you for letting us participate in the care of this patient. ??If you are a health care provider and have any questions regarding this report, please contact the number below. ??For patients who have questions please contact the health child care provider that requested your imaging first. [...] have questions please contactthe health child care provider that requested your imaging first. Radha Hollins MD IMG DX ORDERABLES * (ABNORMAL) Coox2 (05/12/2023 12:30 AM EDT) pO2, Coox 22 mmHg [facility] Hgb Blood Gas 10.9(L) 11.7 - 15.5 g/dL [facility] Oxyhemoglobin, Coox 25.1 % [facility] Carboxyhemoglo bin, Coox 0.3 % [facility] Comment: Nonsmokers: 0.5-1.5% COHB Smokers: Variable, but usually less than 10% Toxic: 20-30% COHB Lethal: Greater than 60% COHB Methemoglobin, Coox 1.4 <=1.5 % [facility] Source Coox Mixed Venous [facility] Blood 05/12/2023 12:3 0 AM EDT 05/12/2023 12:30 AM EDT Radha Hollins MD POINT OF CARE TEST ORDERABLES [facility] [address] [facility] [address] [place] [address] * XR Chest One View (05/11/2023 11:45 [...] questions please contact the health child care provider that requested your imaging first. ? Electronically signed by: Will Rowe MD, [facility] ([phone]), at 05/11/2023 11:57 PM Narrative 05/11/2023 11:57 [...] have questions please contactthe health child care provider that requested your imaging first. Radha Hollins MD IMG DX ORDERABLES * (ABNORMAL) Lactate, whole blood, send to lab ([facility]) (05/11/2023 7:40 PM EDT) Lactate WB 4.8(Critic al) 0.5 - 2.2 mmol/L [facility] Comment:Called by: [facility], Read back by: Magdalena Baires, Date/Time:05/11/23 19:54. Blood 05/11/2023 7:40 PM EDT 05/11/2023 7:49 PM EDT Narrative Resulting Agency Comment Spec In Lab Radha Hollins MD CHEMISTRY ORDERABL ES Performing Organization Address [facility]/ZIP Co de Phone Number [facility] [place] [address] * Urine culture (05/11/2023 7:22 PM EDT) Pathologist [facility] Urine Culture 50,000-99,000 cfu/ml Normal mucosal herman Susceptibilit y testing not routinely performed for Coagulase Negative Staphylococcu s species and other Gram Positive organisms from urine. [facility] Clean Catch Urine 05/11/2023 7:22 PM EDT 05/11/2023 8:50 PM EDT Narrative Resulting Agency Comment Spec In Lab Brody Dale Eusebio OSBORN MICROBIOLOGY - GENE RAL ORDERABLES Performing Organization Address [facility] Co de Phone Number [facility] [place] [address] * (ABNORMAL) Urinalysis Microscopic Exam (05/11/2023 7:22 PM EDT) Pathologist [facility] RBC, Urine 2 0 - 4 /HPF [facility] WBC, Urine >100(H) 0 - 5 /HPF [facility] Bacteria, Urine Occasional (A) None /HPF [facility] Squamous Epithelial Cells Raw Data, Urine 5(H) <=4 /HPF [facility] Hyaline Casts, Urine 3(H) 0 - 2 /LPF [facility] Clean Catch Urine 05/11/2023 7:22 PM EDT 05/11/2023 7:31 PM EDT Narrative Resulting Agency Comment Spec In Lab Brody Elvia Eusebio LEMAN URINE ORDERABLES Performing Organization Address [facility]/ZIP Co de Phone Number [facility] [place] [address] * (ABNORMAL) Urinalysis with reflex Culture (05/11/2023 7:22 PM EDT) Glucose, Urine Dipstick Negative Negative mg/dL [facility] Protein, Urine Dipstick Trace(A) Negative mg/dL [facility] Bilirubin, Urine Dipstick Negative Negative mg/dL [facility] Comment: Clinical correlation required for positive Urine Bilirubin results as false positive may occur with some drugs and drug related products. If a false positive is suspected a serum total bilirubin should be considered if clinically indicated. Urobilinogen, Urine Dipstick Normal Normal mg/dL [facility] pH, Urn (dipstick) 5.0 5.0 - 8.0 [facility] Blood, Urine Dipstick Trace(A) Negative mg/dL [facility] Ketone, Urine Dipstick Negative Negative mg/dL [facility] Nitrite, Urine Dipstick Negative Negative [facility] Leukocytes, Urine Dipstick Moderate(A) Negative mcL [facility] Appearance, Urine Dipstick Cloudy(A) Clear [facility] Specific [place] Urine Automated >=1.030(A) 1.005 - 1.030 [facility] Color, Urine Dipstick Yellow Yellow [facility] Reflex to Culture Yes [facility] Clean Catch Urine 05/11/2023 7:22 PM EDT 05/11/2023 7:31 PM EDT Narrative Resulting Agency Comment Spec In Lab Brody Kaplan APRN URINE ORDERABLES Performing Organization Address [facility]/ZIP Co de Phone Number [facility] [place] [address] * (ABNORMAL) pro-Brain Natriuretic Peptide (05/11/2023 7:11 PM EDT) NT-proBNP >35,000(H) <=124 pg/mL [facility] Blood 05/11/2023 7:11 PM EDT 05/11/2023 7:26 PM EDT Narrative Resulting Agency Comment Spec In Lab Radha Hollins MD CHEMISTRY ORDERABL ES Performing Organization Address City/[facility]/ZIP Co de Phone Number [facility] [place] [address] * (ABNORMAL) Lactate, whole blood, send to lab ([facility]) (05/11/2023 2:47 PM EDT) Lactate WB 2.9(H) 0.5 - 2.2 mmol/L [facility] Blood 05/11/2023 2:47 PM EDT 05/11/2023 2:53 PM EDT Narrative Resulting Agency Comment Spec In Lab Juan Luis Gonzalez MD CHEMISTRY ORDERABLES [facility] [place] [address] * (ABNORMAL) CT Angiogram Abdomen & Pelvis [...] questions please contact the health child care provider that requested your imaging first. [...] questions please contact the health child care provider that requested your imaging first. ? Electronically signed by: Cullen Narayanan MD, [facility] ([phone]), at 05/11/2023 4:37 PM Narrative 05/11/2023 4:37 [...] 610 mm2 Circumference: 88 mm Calcification: Mild Dcvzvqa-el-bfeuywlk height: Left: 6.2 mm Right: 5.8 mm THORACIC AORTA Description: Normal course and caliber. ??Mild diffuse atherosclerotic changes. No acute aortopathy noted. Sales Host dimensions: Aortic root: 27.6 mm Max ascending aorta: 30.5 mm x 27.7 mm Suggested fluoroscopic angulation based on line extending through the nadirs of the three sinuses of Valsalva, set equidistant: ?? BURKINAN ??9 degrees; cranial 7 degrees MITRAL: Mitral [...] 610 mm2 Circumference: 88 mm Calcification: Mild Nlheazo-ra-rrdborqg height: Left: 6.2 mm Right: 5.8 mm THORACIC AORTA Description: Normal course and caliber. Mild diffuse atheroscleroticchanges. No acute aortopathy noted. Sales Host dimensions: Aortic root: 27.6 mm Max ascending aorta: 30.5 mm x 27.7 mm Suggested fluoroscopic angulation based on line extending through thenadirs of the three sinuses of Valsalva, set equidistant: BURKINAN 9 degrees; cranial 7 degrees MITRAL: Mitral [...] have questions please contactthe health child care provider that requested your imaging first. Electronically signed by: Cullen Narayanan MD, [facility]([phone]), at 05/11/2023 4:37 PM Antelmo Sharma MD IMG CT ORDERABLES * (ABNORMAL) Lactate, whole blood, send to lab ([facility]) (05/11/2023 9:29 AM EDT) Lactate WB 3.1(H) 0.5 - 2.2 mmol/L [facility] Blood 05/11/2023 9:29 AM EDT 05/11/2023 9:38 AM EDT Narrative Resulting Agency Comment Spec In Lab Juan Luis Gonzalez MD CHEMISTRY ORDERABLES [facility] [place] [address] * (ABNORMAL) Differential, Automated (05/11/2023 4:42 AM EDT) Neutrophil % 78.1 % [facility] Neutrophil Absolute 5.46 1.70 - 6.10 x10(3)/mc L [facility] Lymph % 10.6 % [facility] Lymphocytes Abs 0.7(L) 0.9 - 3.2 x10(3)/mc L [facility] Monocyte % 9.6 % [facility] Monocyte Abs 0.7 0.3 - 0.9 x10(3)/mc L [facility] Eos % 0.0 % [facility] Eosinophils Abs 0.0 0.0 - 0.4 x10(3)/mc L [facility] Basophil % 0.4 % [facility] Baso Absolute 0.0 0.0 - 0.1 x10(3)/mc L [facility] Immature Gran % 1.30 % [facility] Comment: Immature granulocytes(IG's)percentage and absolute count will include metamyelocytes, myelocytes, and promyelocytes. Blood smears from CBCs yielding IG's will be scanned manually for concordance. If this scan disagrees with the automated IG or if promyelocytes are noted, a manual differential will be performed. Immature Gran Absolute 0.09(H) 0.00 - 0.04 x10(3)/mc L [facility] Blood 05/11/2023 4:42 AM EDT 05/11/2023 4:49 AM EDT Narrative Resulting Agency Comment Spec In Lab Klaudia Reid MD HEMATOLOGY OR DERABLES Performing Organization Address City/[facility] Co de Phone Number [facility] [place] [address] * (ABNORMAL) Hemogram (05/11/2023 4:42 AM EDT) White Blood Cell 7.0 4.0 - 9.5 x10(3)/mc L [facility] Red Blood Cell 3.44(L) 4.00 - 5.21 x10(6)/[facility] Hemoglobin 11.1(L) 11.7 - 15.5 g/dL [facility] Hematocrit 32.7(L) 35.7 - 45.8 % [facility] Mean Cell Volume 95.1(H) 82.6 - 94.4 fL [facility] Mean Cell Hemoglobin 32.3(H) 27.1 - 32.0 pg [facility] Mean Cell Hemoglobin Concentration 33.9 31.7 - 35.0 g/dL [facility] Platelet 165 145 - 357 x10(3)/mc L [facility] RDW Standard Deviation 43.1 37.0 - 46.0 fL [facility] RDW coefficient of variation 12.7 11.5 - 14.1 % [facility] Mean Platelet Volume 10.1 7.6 - 12.9 fL [facility] NRBC% auto 0.0 % [facility] NRBC Absolute 0.000 0.000 - 0.000 x10(3)/ L [facility] Blood 05/11/2023 4:42 AM EDT 05/11/2023 4:49 AM EDT Narrative Resulting Agency Comment Spec In Lab Klaudia Reid MD HEMATOLOGY OR DERABLES Performing Organization Address [facility] Co de Phone Number [facility] [place] [address] * Heparin (unfractionated) Level (05/11/2023 4:42 AM EDT) UF Heparin 0.46 IU/mL [facility] Comment: Heparin (anti-Xa) [...] MD HEMATOLOGY ORDERAB LES Performing Organization Address [facility] Co de Phone Number [facility] [place] [address] * (ABNORMAL) Comprehensive metabolic panel (non-fasting) (05/11/2023 4:42 AM EDT) Glucose 143 65 - 199 mg/dL [facility] Comment:Diabetes: >=200 mg/d L plus symptoms Blood Urea Nitrogen 42(H) 8 - 18 mg/dL [facility] Creatinine 1.24(H) 0.70 - 1.20 mg/dL [facility] Sodium 134(L) 135 - 145 mmol/L [facility] Potassium 4.6 3.5 - 5.0 mmol/L [facility] Comment: Please note: ??Patients with WBC >100,000 may have falsely elevated Potassium levels. ??For accurate Potassium quantification in these patients send serum separator tube (gold top) for subsequent determinations. ??Contact the Clinical Chemistry Laboratory if there are any questions. Chloride 99 98 - 107 mmol/L [facility] Carbon Dioxide 14(L) 22 - 31 mmol/L [facility] Anion Gap 21(H) 5 - 15 mmol/L [facility] Calcium 9.6 8.5 - 10.5 mg/dL [facility] Protein, Total 7.2 6.1 - 8.0 g/dL [facility] Albumin 3.7 3.2 - 5.2 g/dL [facility] Aspartate Aminotransferase 144(H) 0 - 30 unit/L [facility] Comment:result rechecked-ssc Alanine Aminotransferase 130(H) 0 - 30 unit/L [facility] Comment:result rechecked-[facility] [place] Alkaline Phosphatase 72 35 - 105 unit/L [facility] Bilirubin, Total 0.8 0.2 - 1.3 mg/dL [facility] Est Glomerular Filtration Rate 48(L) >=60 mL/min/1. 73 m?? [facility] Comment: This patient's estimated GFR was [...] Lab Radha Hollins MD CHEMISTRY ORDERABL ES [facility] [place] [address] * EKG 12 Lead (05/10/2023 1:16 PM EDT) Ventricular rate 118 BPM MUSE SYSTEM Atrial Rate 118 BPM MUSE SYSTEM P-R Interval 152 ms MUSE SYSTEM QRS Duration 104 ms MUSE SYSTEM Q-T Interval 316 ms MUSE SYSTEM QTC Calculated (Bezet) 442 ms MUSE SYSTEM Calculated P [place] 29 degrees MUSE SYSTEM Calculated R [place] 18 degrees MUSE SYSTEM Calculated T [place] -173 degrees MUSE SYSTEM INTERPRETATION Sinus tachycardia [...] Anterior leads Confirmed by MD Villareal Danette ([id number]) on 05/10/2023 8:47:46 PM MUSE SYSTEM 05/10/2023 1:16 PM EDT 05/10/2023 8:47 PM EDT Juan Luis Gonzalez MD ECG ORDERABLES MUSE SYSTEM * Lactate, whole blood, send to lab ([facility]) (05/10/2023 11:52 AM EDT) Lactate WB 1.8 0.5 - 2.2 mmol/L [facility] Blood 05/10/2023 11:5 2 AM EDT 05/10/2023 12:13 PM EDT Narrative Resulting Agency Comment Spec In Lab Juan Luis Gonzalez MD CHEMISTRY ORDERABLES [facility] [place] [address] * XR Chest One View (05/10/2023 11:16 [...] questions please contact the health child care provider that requested your imaging first. ? Electronically signed by: ALIX RUVALCABA MD, [facility] ([phone]), at 05/10/2023 1:25 PM Narrative 05/10/2023 1:25 [...] have questions please contactthe health child care provider that requested your imaging first. Electronically signed by: ALIX RUVALACBA MD, [facility]([phone]), at 05/10/2023 1:25 PM Juan Luis Gonzalez MD IMG DX ORDERABLES * EKG 12 Lead (05/10/2023 7:59 AM EDT) [facility] Ventricular rate 115 BPM MUSE SYSTEM Atrial Rate 115 BPM MUSE SYSTEM P-R Interval 142 ms MUSE SYSTEM QRS Duration 102 ms MUSE SYSTEM Q-T Interval 322 ms MUSE SYSTEM QTC Calculated (Bezet) 445 ms MUSE SYSTEM Calculated P [place] 36 degrees MUSE SYSTEM Calculated R [place] 28 degrees MUSE SYSTEM Calculated T [place] -119 degrees MUSE SYSTEM INTERPRETATION Sinus tachycardia [...] (ABNORMAL) Differential, Automated (05/10/2023 2:28 AM EDT) [facility] Neutrophil % 77.1 % [facility] Neutrophil Absolute 4.01 1.70 - 6.10 x10(3)/mc L [facility] Lymph % 14.0 % [facility] Lymphocytes Abs 0.7(L) 0.9 - 3.2 x10(3)/mc L [facility] Monocyte % 7.7 % [facility] Monocyte Abs 0.4 0.3 - 0.9 x10(3)/mc L [facility] Eos % 0.4 % [facility] Eosinophils Abs 0.0 0.0 - 0.4 x10(3)/mc L [facility] Basophil % 0.4 % [facility] Baso Absolute 0.0 0.0 - 0.1 x10(3)/mc L [facility] Immature Gran % 0.40 % [facility] Comment: Immature granulocytes(IG's)percentage and absolute count will include metamyelocytes, myelocytes, and promyelocytes. Blood smears from CBCs yielding IG's will be scanned manually for concordance. If this scan disagrees with the automated IG or if promyelocytes are noted, a manual differential will be performed. Immature Gran Absolute 0.02 0.00 - 0.04 x10(3)/[facility] Blood 05/10/2023 2:28 AM EDT 05/10/2023 2:57 AM EDT Narrative Resulting Agency Comment Spec In Lab Klaudia Reid MD HEMATOLOGY OR DERABLES [facility] [place] [address] * (ABNORMAL) Hemogram (05/10/2023 2:28 AM EDT) White Blood Cell 5.2 4.0 - 9.5 x10(3)/[facility] Red Blood Cell 3.11(L) 4.00 - 5.21 x10(6)/[facility] Hemoglobin 10.2(L) 11.7 - 15.5 g/dL [facility] Hematocrit 30.2(L) 35.7 - 45.8 % [facility] Mean Cell Volume 97.1(H) 82.6 - 94.4 fL [facility] Mean Cell Hemoglobin 32.8(H) 27.1 - 32.0 pg [facility] Mean Cell Hemoglobin Concentration 33.8 31.7 - 35.0 g/dL [facility] Platelet 151 145 - 357 x10(3)/[facility] RDW Standard Deviation 44.9 37.0 - 46.0 fL [facility] RDW coefficient of variation 12.8 11.5 - 14.1 % [facility] Mean Platelet Volume 9.8 7.6 - 12.9 fL [facility] NRBC% auto 0.0 % [facility] NRBC Absolute 0.000 0.000 - 0.000 x10(3)/[facility] Blood 05/10/2023 2:28 AM EDT 05/10/2023 2:57 AM EDT Narrative Resulting Agency Comment Spec In Lab Klaudia Reid MD HEMATOLOGY OR DERABLES [facility] [place] [address] * (ABNORMAL) Comprehensive metabolic panel (non-fasting) (05/10/2023 2:28 AM EDT) Glucose 100 65 - 199 mg/dL [facility] Comment:Diabetes: >=200 mg/d L plus symptoms Blood Urea Nitrogen 30(H) 8 - 18 mg/dL [facility] Creatinine 0.90 0.70 - 1.20 mg/dL [facility] Sodium 134(L) 135 - 145 mmol/L [facility] Potassium 4.1 3.5 - 5.0 mmol/L [facility] Comment: Please note: ??Patients with WBC >100,000 may have falsely elevated Potassium levels. ??For accurate Potassium quantification in these patients send serum separator tube (gold top) for subsequent determinations. ??Contact the Clinical Chemistry Laboratory if there are any questions. Chloride 102 98 - 107 mmol/L [facility] Carbon Dioxide 20(L) 22 - 31 mmol/L [facility] Anion Gap 12 5 - 15 mmol/L [facility] Calcium 9.3 8.5 - 10.5 mg/dL [facility] Protein, Total 6.4 6.1 - 8.0 g/dL [facility] Albumin 3.7 3.2 - 5.2 g/dL [facility] Aspartate Aminotransferase 24 0 - 30 unit/L [facility] Alanine Aminotransferase 14 0 - 30 unit/L [facility] Alkaline Phosphatase 70 35 - 105 unit/L [facility] Bilirubin, Total 0.5 0.2 - 1.3 mg/dL [facility] Est Glomerular Filtration Rate 70 >=60 mL/min/1. 73 m?? [facility] Comment: This patient's estimated GFR was [...] MD CHEMISTRY ORDERABL ES Performing Organization Address [facility] [place] [address] * Heparin (unfractionated) Level (05/10/2023 2:28 AM EDT) UF Heparin 0.37 IU/mL [facility] Comment: Heparin (anti-Xa) [...] MD HEMATOLOGY ORDERAB LES Performing Organization Address [facility]/ZIP Co de Phone Number [facility] [place] [address] * (ABNORMAL) Differential, Automated (05/09/2023 4:00 AM EDT) Neutrophil % 81.7 % [facility] Neutrophil Absolute 5.26 1.70 - 6.10 x10(3)/mc L [facility] Lymph % 10.7 % [facility] Lymphocytes Abs 0.7(L) 0.9 - 3.2 x10(3)/[facility] Monocyte % 6.5 % [facility] Monocyte Abs 0.4 0.3 - 0.9 x10(3)/[facility] Eos % 0.5 % [facility] Eosinophils Abs 0.0 0.0 - 0.4 x10(3)/[facility] Basophil % 0.3 % [facility] Baso Absolute 0.0 0.0 - 0.1 x10(3)/[facility] Immature Gran % 0.30 % [facility] Comment: Immature granulocytes(IG's)percentage and absolute count will include metamyelocytes, myelocytes, and promyelocytes. Blood smears from CBCs yielding IG's will be scanned manually for concordance. If this scan disagrees with the automated IG or if promyelocytes are noted, a manual differential will be performed. Immature Gran Absolute 0.02 0.00 - 0.04 x10(3)/ L [facility] Blood 05/09/2023 4:00 AM EDT 05/09/2023 4:19 AM EDT Narrative Resulting Agency Comment Spec In Lab Klaudia Reid MD HEMATOLOGY OR DERABLES [facility] [place] [address] * (ABNORMAL) Hemogram (05/09/2023 4:00 AM EDT) White Blood Cell 6.4 4.0 - 9.5 x10(3)/[facility] Red Blood Cell 3.15(L) 4.00 - 5.21 x10(6)/[facility] Hemoglobin 10.2(L) 11.7 - 15.5 g/dL [facility] Hematocrit 30.3(L) 35.7 - 45.8 % [facility] Mean Cell Volume 96.2(H) 82.6 - 94.4 fL [facility] Mean Cell Hemoglobin 32.4(H) 27.1 - 32.0 pg [facility] Mean Cell Hemoglobin Concentration 33.7 31.7 - 35.0 g/dL [facility] Platelet 151 145 - 357 x10(3)/mc L [facility] RDW Standard Deviation 44.7 37.0 - 46.0 fL [facility] RDW coefficient of variation 12.8 11.5 - 14.1 % [facility] Mean Platelet Volume 9.4 7.6 - 12.9 fL [facility] NRBC% auto 0.0 % [facility] NRBC Absolute 0.000 0.000 - 0.000 x10(3)/mc L [facility] Blood 05/09/2023 4:00 AM EDT 05/09/2023 4:19 AM EDT Narrative Resulting Agency Comment Spec In Lab Klaudia Reid MD HEMATOLOGY OR DERABLES Performing Organization Address City/State/[facility] Co de Phone Number [facility] [place] [address] * Heparin (unfractionated) Level (05/09/2023 4:00 AM EDT) UF Heparin 0.47 IU/mL [facility] Comment: Heparin (anti-Xa) levels should be [...] Lab Radha Hollins MD HEMATOLOGY ORDERAB LES [facility] [place] [address] * (ABNORMAL) Comprehensive metabolic panel (non-fasting) (05/09/2023 4:00 AM EDT) Glucose 108 65 - 199 mg/dL [facility] Comment:Diabetes: >=200 mg/d L plus symptoms Blood Urea Nitrogen 31(H) 8 - 18 mg/dL [facility] Creatinine 1.03 0.70 - 1.20 mg/dL [facility] Sodium 137 135 - 145 mmol/L [facility] Potassium 4.4 3.5 - 5.0 mmol/L [facility] Comment: Please note: ??Patients with WBC >100,000 may have falsely elevated Potassium levels. ??For accurate Potassium quantification in these patients send serum separator tube (gold top) for subsequent determinations. ??Contact the Clinical Chemistry Laboratory if there are any questions. Chloride 102 98 - 107 mmol/L [facility] Carbon Dioxide 20(L) 22 - 31 mmol/L [facility] Anion Gap 15 5 - 15 mmol/L [facility] Calcium 9.3 8.5 - 10.5 mg/dL [facility] Protein, Total 6.6 6.1 - 8.0 g/dL [facility] Albumin 3.8 3.2 - 5.2 g/dL [facility] Aspartate Aminotransferase 32(H) 0 - 30 unit/L [facility] Alanine Aminotransferase 18 0 - 30 unit/L [facility] Alkaline Phosphatase 78 35 - 105 unit/L [facility] Bilirubin, Total 0.5 0.2 - 1.3 mg/dL [facility] Est Glomerular Filtration Rate 60 >=60 mL/min/1. 73 m?? [facility] Comment: This patient's estimated GFR was [...] MD CHEMISTRY ORDERABL ES Performing Organization Address [facility] Co de Phone Number [facility] [place] [address] * (ABNORMAL) pro-Brain Natriuretic Peptide (05/08/2023 4:00 PM EDT) NT-proBNP 25,503(H) <=124 pg/mL [facility] Blood Venous Draw / Unknown 05/08/2023 4:00 PM EDT 05/08/2023 4:25 PM EDT Narrative Resulting Agency Comment Spec In Lab Juan Luis Gonzalez MD CHEMISTRY ORDERABLES Performing Organization Address [facility] Co de Phone Number [facility] [place] [address] * Magnesium (05/08/2023 4:00 PM EDT) Magnesium 0.82 0.69 - 1.07 mmol/L [facility] Blood 05/08/2023 4:00 PM EDT 05/08/2023 4:06 PM EDT Narrative Resulting Agency Comment Spec In Lab Enrique Chua MD CHEMISTRY ORDERABLES Performing Organization Address [facility] Co de Phone Number [facility] [place] [address] * Potassium (05/08/2023 4:00 PM EDT) Potassium 3.9 3.5 - 5.0 mmol/L [facility] Comment: Please note: ??Patients with WBC [...] MD CHEMISTRY ORDERABL ES Performing Organization Address [facility] Co de Phone Number [facility] [place] [address] * Heparin (unfractionated) Level (05/08/2023 4:00 PM EDT) Pathologist [facility] UF Heparin 0.43 IU/mL [facility] Comment: Heparin (anti-Xa) [...] MD HEMATOLOGY ORDERAB LES Performing Organization Address [facility] Co de Phone Number [facility] [place] [address] * EKG 12 Lead (05/08/2023 3:51 PM EDT) Ventricular rate 98 BPM MUSE SYSTEM Atrial Rate 98 BPM MUSE SYSTEM P-R Interval 150 ms MUSE SYSTEM QRS Duration 102 ms MUSE SYSTEM Q-T Interval 358 ms MUSE SYSTEM QTC Calculated (Bezet) 457 ms MUSE SYSTEM Calculated P [place] 38 degrees MUSE SYSTEM Calculated R [place] 48 degrees MUSE SYSTEM Calculated T [place] -112 degrees MUSE SYSTEM INTERPRETATION Sinus rhythm with frequent and consecutive Premature ventricular and fusion complexes Septal infarct , age undetermined ST & T wave abnormality, consider anterolateral ischemia Abnormal ECG When compared with ECG of 09-NOV-2022 11:17, T wave inversion now evident in Anterolateral leads Confirmed by MD Harshil, Enrique Bell ([id number]) on 05/10/2023 8:11:46 AM MUSE SYSTEM 05/08/2023 3:51 PM EDT 05/10/2023 8:11 AM EDT Radha Hollins MD ECG ORDERABLES MUSE SYSTEM * (ABNORMAL) Differential, Automated (05/08/2023 11:38 AM EDT) Neutrophil % 71.3 % [facility] Neutrophil Absolute 2.91 1.70 - 6.10 x10(3)/mc L [facility] Lymph % 19.1 % [facility] Lymphocytes Abs 0.8(L) 0.9 - 3.2 x10(3)/mc L [facility] Monocyte % 9.0 % [facility] Monocyte Abs 0.4 0.3 - 0.9 x10(3)/mc L [facility] Eos % 0.2 % [facility] Eosinophils Abs 0.0 0.0 - 0.4 x10(3)/mc L [facility] Basophil % 0.2 % [facility] Baso Absolute 0.0 0.0 - 0.1 x10(3)/mc L [facility] Immature Gran % 0.20 % [facility] Comment: Immature granulocytes(IG's)percentage and absolute count will include metamyelocytes, myelocytes, and promyelocytes. Blood smears from CBCs yielding IG's will be scanned manually for concordance. If this scan disagrees with the automated IG or if promyelocytes are noted, a manual differential will be performed. Immature Gran Absolute 0.01 0.00 - 0.04 x10(3)/mc L [facility] Blood 05/08/2023 11:3 8 AM EDT 05/08/2023 11:44 AM EDT Narrative Resulting Agency Comment Spec In Lab Lincoln Sal MD HEMATOLOGY ORDERA BLES [facility] [place] [address] * (ABNORMAL) Hemogram (05/08/2023 11:38 AM EDT) White Blood Cell 4.1 4.0 - 9.5 x10(3)/mc L [facility] Red Blood Cell 3.05(L) 4.00 - 5.21 x10(6)/mc L [facility] Hemoglobin 10.2(L) 11.7 - 15.5 g/dL [facility] Hematocrit 29.6(L) 35.7 - 45.8 % [facility] Mean Cell Volume 97.0(H) 82.6 - 94.4 fL [facility] Mean Cell Hemoglobin 33.4(H) 27.1 - 32.0 pg [facility] Mean Cell Hemoglobin Concentration 34.5 31.7 - 35.0 g/dL [facility] Platelet 136(L) 145 - 357 x10(3)/mc L [facility] RDW Standard Deviation 44.3 37.0 - 46.0 fL [facility] RDW coefficient of variation 12.6 11.5 - 14.1 % [facility] Mean Platelet Volume 9.4 7.6 - 12.9 fL [facility] NRBC% auto 0.0 % [facility] NRBC Absolute 0.000 0.000 - 0.000 x10(3)/mc L [facility] Blood 05/08/2023 11:3 8 AM EDT 05/08/2023 11:44 AM EDT Narrative Resulting Agency Comment Spec In Lab Lincoln Sal MD HEMATOLOGY ORDERA BLES [facility] [place] [address] * TSH (05/08/2023 11:38 AM EDT) Thyroid Stimulating Hormone 1.27 0.27 - 4.20 mcIU/mL [facility] Comment: Reference Interval (mcIU/mL): Females: ??First Trimester: 0.23-3.88 ??Second Trimester: 0.22-3.90 ??Third Trimester: 0.44-4.66 Blood 05/08/2023 11:3 8 AM EDT 05/08/2023 11:44 AM EDT Narrative Resulting Agency Comment Spec In Lab Enrique Chua MD CHEMISTRY ORDERABLES Performing Organization Address City/[facility] Co de Phone Number [facility] [place] [address] * (ABNORMAL) Phosphorus (05/08/2023 11:38 AM EDT) Phosphorus 4.7(H) 2.5 - 4.5 mg/dL [facility] Blood 05/08/2023 11:3 8 AM EDT 05/08/2023 11:44 AM EDT Narrative Resulting Agency Comment Spec In Lab Enrique Chua MD CHEMISTRY ORDERABLES Performing Organization Address [facility] Co de Phone Number [facility] [place] [address] * Magnesium (05/08/2023 11:38 AM EDT) Magnesium 0.76 0.69 - 1.07 mmol/L [facility] Blood 05/08/2023 11:3 8 AM EDT 05/08/2023 11:44 AM EDT Narrative Resulting Agency Comment Spec In Lab Enrique Chua MD CHEMISTRY ORDERABLES Performing Organization Address [facility] Co de Phone Number [facility] [place] [address] * (ABNORMAL) Basic Metabolic Panel (non-fasting) (05/08/2023 11:38 AM EDT) Glucose 97 65 - 199 mg/dL [facility] Comment:Diabetes: >=200 mg/d L plus symptoms Blood Urea Nitrogen 27(H) 8 - 18 mg/dL [facility] Creatinine 1.02 0.70 - 1.20 mg/dL [facility] Sodium 139 135 - 145 mmol/L [facility] Potassium 4.2 3.5 - 5.0 mmol/L [facility] Comment: Please note: ??Patients with WBC >100,000 may have falsely elevated Potassium levels. ??For accurate Potassium quantification in these patients send serum separator tube (gold top) for subsequent determinations. ??Contact the Clinical Chemistry Laboratory if there are any questions. Chloride 105 98 - 107 mmol/L [facility] Carbon Dioxide 20(L) 22 - 31 mmol/L [facility] Anion Gap 14 5 - 15 mmol/L [facility] Calcium 9.4 8.5 - 10.5 mg/dL [facility] Est Glomerular Filtration Rate 60 >=60 mL/min/1. 73 m?? [facility] Comment: This patient's estimated GFR was [...] Chua MD CHEMISTRY ORDERABLES Performing Organization Address City/State/[facility] Co de Phone Number [facility] [place] [address] * ECHO COMPLETE (05/08/2023 11:02 AM EDT) EF 25 [employer] SYSTEM Anatomical Region Laterality Modality Cardiac Other 05/08/2023 10:0 3 AM EDT Narrative 05/08/2023 11:51 AM EDT ? Echocardiogram Report Name: PURNIMA THACKER ?Study Date: 05/08/2023 10:03 AMBP: 92/64 mmHg ? Patient Location: [facility]^CV29^A : 1955 ? Height: 155 cm ? Account: [id number] Age: 67 yrs ? Weight: 78 kg Gender: Female ?BSA: 1.8 m2 Ordering Physician: ENRIQUE CHUA Referring Physician: MARIO ALBERTO CHIN Performed By: CHUCKIE Canchola Reason For Study: SAVR Stenosis Exam Location: [facility]. Interpretation Summary -Left ventricle is severely [...] worsening stenosis. Mitral regurgitation is similar. Procedure Complete-[id number]. Satisfactory quality. There is normal sinus rhythm. [...] Study Date: 310:03 AMBP: 92/64 mmHg Patient Location:[facility]^CV29^A : 1955 Height: 155 cm Account: [id number] Age: 67 yrs Weight: 78 kg Gender: Female BSA: 1.8 m2 Ordering Physician: ENRIQUE CHUA Referring Physician: MARIO ALBERTO CHIN Performed By: CHUCKIE Canchola Reason For Study: SAVR Stenosis Exam Location: [facility]. Interpretation Summary -Left ventricle is severely [...] suggestsworsening stenosis. Mitral regurgitation is similar. Procedure Complete-[id number]. Satisfactory quality. There is normal sinus rhythm. 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 Mild coronary artery disease by [facility] 11/09/2022 Mixed connective tissue disease [...] ejection fraction Mild coronary artery disease by [facility] 11/09/2022 Stenosis of prosthetic aortic [...] Minutes 1758 (New Bag - Provider: Gabino Calhonu RN)1958 (Stopped - Provider: Favian Mckeon, VALDO) [...] 40 mEq, Oral, ONCE, 1 dose, On [facility] 05/20/23 at 0915, potassium chloride ER particle/crystal [...] post-op day 1 in the AM Give [place] if unable to take PO, Routine Group [...] Routine documented in this encounter Care Teams Tank Builder Relationship Specialty Start Date End Date Magdalena Acosta MD [address] [place] [address] PCP - General Family Medicine 02/05/23 documented as of this encounter
--- OUTSIDE RECORDS SUMMARY | 2024-03-23 14:02 | XMS_ITS | Encounter Summary ---
[place] [address] Care Team Providers Care It Security Specialist Name Role Phone Deborah Quiroga APRN Primary Care Provider [phone] Encounter Details Date Type Department Care Team (Late st Contact Info) Description 06/05/2021 Interpretation Only [address] [address] Deborah Quiroga SPIRITUAL MINISTER [address] [id number] Social History Tobacco Use Types Packs/Day Years [...] 4:15 PM EDT Office Visit Dermatology at [place] [address] [place] [address] Marek Bonilla MD [address] [facility], [place] [address] documented as of this encounter Procedures Procedure Name Priority Date/Time Associated Diagnosis Comments DXA CENTRAL SPINE, HIP, AND/OR WHOLE BODY (GENERIC) Routine 06/05/2021 11:58 AM EDT documented in this encounter Results * DXA Central Spine, Hip, and/or Whole Body (Generic) (06/05/2021 11:58 AM EDT) PT CLASS O RAD ADMITDTTM RAD PT RAD INFO [id number]^E VERETT^DEBORAH ^E RAD EXAM DESC XDXAC^DEXA SCAN AXIAL^RIS [facility] Anatomical Region Laterality Modality C-spine, Hip N/A [...] have questions please contact the health care navigator that requested your imaging first. ? Electronically signed by: Rocael Villatoro MD, [facility] ([phone]), at 06/05/2021 12:00 PM Narrative 06/05/2021 12:00 [...] who have questions please contactthe health care navigator that requested your imaging first. Deborah Quiroga APRN IMGerman DEXA ORDERABLES documented in this encounter Visit Diagnoses Not on filedocumented in this encounter Care Teams It Security Specialist Relationship Specialty Start Date End Date Deborah Quiroga APRN PCP - General Family Medicine 03/24/16 02/04/23 documented as of this encounter
--- OUTSIDE RECORDS SUMMARY | 2024-03-23 14:02 | XMS_ITS | Encounter Summary ---
[place] [address] Care Team Providers Care High School Music Teacher Name Role Phone Magdalena Acosta MD Primary Care Provider [phone] Reason for Visit * Reason Comments Skin Lesion Encounter Details Date Type Department Care Team (Late st Contact Info) Description 04/20/2023 10:00 AM EDT Office Visit Dermatology at [address] [address] Marek Bonilla MD [address] [facility], [place] [address] Seborrheic keratosis Social History Tobacco Use Types [...] cutaneous and ocular 3. Previously told by utility engineer that she had corneal tears from [...] 4:15 PM EDT Office Visit Dermatology at [place] [address] [facility] [address] Marek Bonilla MD [address] [address], [place] [address] documented as of this encounter Visit Diagnoses Diagnosis Seborrheic keratosis Other seborrheic keratosis documented in this encounter Care Teams High School Music Teacher Relationship Specialty Start Date End Date Magdalena Acosta MD [address] [place] [address] PCP - General Family Medicine 02/05/23 documented as of this encounter
--- OUTSIDE RECORDS SUMMARY | 2024-03-23 14:02 | XMS_ITS | Encounter Summary ---
[place] [address] Care Team Providers Care Teacher Assistant Name Role Phone Deborah Quiroga APRN Primary Care Provider [phone] Encounter Details Date Type Department Care Team [...] PM EDT Office Visit Dermatology at [address] [place] [address] Marek Bonilla MD [address] [facility] [address], [place] [address] documented as of this encounter Visit Diagnoses Not on filedocumented in this encounter Care Teams Teacher Assistant Relationship Specialty Start Date End Date Deborah Quiroga APRN PCP - General Family Medicine 03/24/16 02/04/23 documented as of this encounter
--- OUTSIDE RECORDS SUMMARY | 2024-03-23 14:02 | XMS_ITS | Encounter Summary ---
Author Organization [facility] [place] [address] Care Team Providers Care Radio Station Operator Name Role Phone Deborah Quiroga APRN Primary Care Provider [phone] Encounter Details Date Type Department Care Team (Late st Contact Info) Description 11/02/2022 Orders Only [place] [address] Emily Lyons PA [facility] [place] [address] Aortic valve stenosis, etiology of cardiac valve [...] 4:15 PM EDT Office Visit Dermatology at [place] [address] [facility] [place] [address] Marek Bonilla MD [address] [facility] [address], [place] [address] documented as of this encounter Visit Diagnoses Diagnosis Aortic valve stenosis, etiology of cardiac valve disease unspecified documented in this encounter Care Teams Radio Station Operator Relationship Specialty Start Date End Date Deboarh Quiroga APRN PCP - General Family Medicine 03/24/16 02/04/23 documented as of this encounter
--- OUTSIDE RECORDS SUMMARY | 2024-03-23 14:02 | XMS_ITS | Encounter Summary ---
Author Organization [facility] Address [facility] [place] [address] Care Team Providers Care Services Rep Name Role Phone Deborah Quiroga APRN Primary Care Provider [phone] Encounter Details Date Type Department Care Team (Latest Contact Info) Description 07/03/2022 12:28 PM EST - 07/03/2022 1:35 PM EST Hospital Encounter [place] [address] Chronic idiopathic neutropenia Discharge Disposition: Home Social [...] 4:15 PM EDT Office Visit Dermatology at [place] [address] [facility] [place] [address] Marek Bonilla MD [address] [address], [place] [address] documented as of this encounter Procedures Procedure [...] [facility] Neutrophil % 72.9 % [facility] Neutrophil Absolute 2.61 1.70 - 6.10 x10(3)/[facility] Lymph % 18.4 % [facility] Lymphocytes Abs 0.7(L) 0.9 - 3.2 x10(3)/[facility] Monocyte % 8.4 % [facility] Monocyte Abs 0.3 0.3 - 0.9 x10(3)/[facility] Eos % 0.0 % [facility] Eosinophils Abs 0.0 0.0 - 0.4 x10(3)/[facility] Basophil % 0.3 % [facility] Baso Absolute 0.0 0.0 - 0.1 x10(3)/[facility] Immature Gran % 0.00 % [facility] Comment: Immature granulocytes(IG's)percentage and absolute count will include metamyelocytes, myelocytes, and promyelocytes. Blood smears from CBCs yielding IG's will be scanned manually for concordance. If this scan disagrees with the automated IG or if promyelocytes are noted, a manual differential will be performed. Immature Gran Absolute 0.00 0.00 - 0.04 x10(3)/[facility] Blood 07/03/2022 12:4 0 PM EST 07/03/2022 1:03 PM EST Narrative Resulting Agency Comment Spec In Lab Markel Borjas MD HEMATOLOGY ORDERAB LES [facility] [place] [address] * (ABNORMAL) Hemogram (07/03/2022 12:40 PM EST) White Blood Cell 3.6(L) 4.0 - 9.5 x10(3)/[facility] Red Blood Cell 3.61(L) 4.00 - 5.21 x10(6)/mc L [facility] Hemoglobin 11.7 11.7 - 15.5 g/dL [facility] Hematocrit 34.5(L) 35.7 - 45.8 % [facility] Mean Cell Volume 95.6(H) 82.6 - 94.4 fL [facility] Mean Cell Hemoglobin 32.4(H) 27.1 - 32.0 pg [facility] Mean Cell Hemoglobin Concentration 33.9 31.7 - 35.0 g/dL [facility] Platelet 171 145 - 357 x10(3)/mc L [facility] RDW Standard Deviation 40.5 37.0 - 46.0 fL [facility] RDW coefficient of variation 11.5 11.5 - 14.1 % [facility] Mean Platelet Volume 9.2 7.6 - 12.9 [facility] NRBC% auto 0.0 % [facility] NRBC Absolute 0.000 0.000 - 0.000 x10(3)/mc L [facility] Blood 07/03/2022 12:4 0 PM EST 07/03/2022 1:03 PM EST Narrative Resulting Agency Comment Spec In Lab Markel Borjas MD HEMATOLOGY ORDERAB LES [facility] [place] [address] * (ABNORMAL) Comprehensive metabolic panel (non-fasting) (07/03/2022 [...] MD CHEMISTRY ORDERABL ES [facility] [place] [address] documented in this encounter Visit Diagnoses Diagnosis Chronic idiopathic neutropenia Other neutropenia documented in this encounter Care Teams Services Rep Relationship Specialty Start Date End Date Deborah Quiroga APRN PCP - General Family Medicine 03/24/16 02/04/23 documented as of this encounter
--- OUTSIDE RECORDS SUMMARY | 2024-03-23 14:02 | XMS_ITS | Encounter Summary ---
Author Organization [facility] [place] [address] Care Team Providers Care Supervisor Dry Paste Name Role Phone Deborah Quiroga APRN Primary Care Provider Encounter Details Date Type Department Care Team (Late st Contact Info) Description 11/09/2022 11:30 AM EDT - 11/09/2022 12:30 PM EDT Surgery [place] [address] Nitesh Escobedo MD [facility] [place] [address] CARDIAC CATHETERIZATION Social History Tobacco Use Types [...] Center 02/05/2023 2:30 PM Marek Bonilla MD [facility] New Medications to be Picked Up None For questions regarding this document or issues relating to this hospitalization on the Medical Service, please contact your inpatient physician through the [facility] Rebar Fabricator . Issues afterhours and on weekends will be handled by the Hospitalist staff on-call. * Attachments The following attachments cannot be sent through Care Everywhere. * Coronary Angiogram: Post-op (Mongolian) * Right Heart Catheterization: Pulmonary Artery Catheterization: Post-op (Mongolian) documented in this encounter Medications at Time [...] MD - 11/09/2022 11:20 AM EDT . [facility] Interventional Cardiology Adult Pre-Procedure H&P Update: Cardiac Catheterization Purnima Thacker [id number] 1955 Chief Complaint: BONILLA HPI: Purnima Thacker [...] Marrero MD Interventional Cardiology 11/09/22 11:43 AM [facility] Pager: [phone] documented in this encounter Plan of Treatment Upcoming Encounters Date Type Department Care Team (Late st Contact Info) Description 03/01/2025 4:15 PM EDT Office Visit Dermatology at [place] [address] [facility] [place] [address] Marek Bonilla MD [address] [facility], [place] [address] documented as of this encounter Procedures Procedure Name Priority Date/Time Associated Diagnosis Comments CARDIAC CATHETERIZATION Routine 11/10/19 1:05 PM EDT Aortic valve stenosis, etiology of cardiac valve disease unspecified Cath Plmt Left Heart Cath & Arts W/Inj & Angio Img S&I ([id number]) 11/09/2022 11:51 AM EDT Aortic valve stenosis, etiology of cardiac valve disease unspecified EKG 12-LEAD Routine 11/09/2022 11:17 AM EDT Aortic valve stenosis, etiology of cardiac valve disease unspecified documented in this encounter Results * CARDIAC CATHETERIZATION (11/09/2022 1:05 PM EDT) Anatomical Region Laterality Modality Other Narrative 11/09/2022 2:01 PM EDT ?[facility] ? Cardiac Catheterization/Intervention Report ? Patient Name: Kirstie, Purnima M. ? Procedure Date: 11/09/2022 ? A #: [id number] ? Primary Physician: Nitesh Escobedo ? Case #: [id number] ? File Name: [id number] ? Catheterization Order Number: [id number] ? [facility] ? Final Report [place], [place] ? Patient Name: ? Purnima M. Kirstie ? ID#: ?[id number] ? : ?1955 ? Procedure Date: ? [...] (Bezet) 457 ms MUSE SYSTEM Calculated P [place] 44 degrees MUSE SYSTEM Calculated R [place] 33 degrees MUSE SYSTEM Calculated T [place] 30 degrees MUSE SYSTEM INTERPRETATION Sinus rhythm Occasional Premature ventricular complexes Otherwise normal ECG When compared with ECG of 21-SEP-2016 12:26, Premature ventricular complexes are now Present SC interval has decreased Nonspecific T wave abnormality has replaced inverted T waves in Inferior leads I personally reviewed the tracing and edited the fellows interpretation Confirmed by fellow MD Anitha, Carissa ([id number]) on 11/09/2022 6:17:28 PM Confirmed by Elsa [...] MD) documented in this encounter Care Teams Supervisor Dry Paste Relationship Specialty Start Date End Date Deborah Quiroga, FISH NET MAKER PCP - General Family Medicine 03/24/16 02/04/23 documented as of this encounter
--- OUTSIDE RECORDS SUMMARY | 2024-03-23 14:02 | XMS_ITS | Encounter Summary ---
Author Organization [facility] Address [facility] Erika [facility] [place] [address] Care Team Providers Care Earth Science Faculty Member Name Role Phone Deborah Quiroga APRN Primary Care Provider [phone] Reason for Visit * Consultation (Routine) - Closed Specialty Diagnoses / Procedures Referred By Contkrystle t Referred To Contact Rheumatology Diagnoses Positive FRANCISCO (antinuclear antibody) Arthralgia, unspecified joint Sandy Wu APRN [address] [place] [address] [facility] [address] [place] [address] Referral ID Status Reason Start Date Expiration Date V isits Requested Visits Authorized [id number] Closed Consult, Test & Treat PCP Updated and/or Approved 01/01/2022 01/01/2023 6 6 Encounter Details Date Type Department Care Team (Latest Contact Info) Description 01/20/2022 10:00 AM EDT Office [place] [address] Raymond Loredo MD [facility] [place] [address] Rosacea; Raynaud's phenomenon without gangrene; [...] radiocarpal or ulnocarpal joints. Hands: Normal director of creative services and claw. SJC/TJC 0/0. Hips: Full [...] 4:15 PM EDT Office Visit Dermatology at [place] [address] [facility] [place] [address] Marek Bonilla MD [address] [facility] [facility] [address], [place] [address] Scheduled Referrals Name Type Priority Associated Diagnoses [...] syndrome documented in this encounter Care Teams Earth Science Faculty Member Relationship Specialty Start Date End Date Deborah Quiroga APRN PCP - General Family Medicine 03/24/16 02/04/23 documented as of this encounter
--- OUTSIDE RECORDS SUMMARY | 2024-03-23 14:02 | XMS_ITS | Encounter Summary ---
[place] [address] Care Team Providers Care Guest Services Ambassador Name Role Phone Deborah Quiroga APRN Primary Care Provider [phone] Encounter Details Date Type Department Care Team [...] PM EDT Office Visit Dermatology at [address] [place] [address] Marek Bonilla MD [address] [facility] [address], [place] [address] documented as of this encounter Visit Diagnoses Not on filedocumented in this encounter Care Teams Guest Services Ambassador Relationship Specialty Start Date End Date Deborah Quiroga APRN PCP - General Family Medicine 03/24/16 02/04/23 documented as of this encounter
--- OUTSIDE RECORDS SUMMARY | 2024-03-23 14:02 | XMS_ITS | Encounter Summary ---
Author Organization [facility] [place] [address] Care Team Providers Care Rn Lvn Name Role Phone Magdalena Acosta MD Primary Care Provider [phone] Encounter Details Date Type Department Care Team (Late st Contact Info) Description 02/17/2023 2:00 PM EDT Office [place] [address] Alirio Esparza MD Aortic valve stenosis, etiology [...] EDT Office Visit Dermatology at [place] [address] [place] [address] Marek Bonilla MD [address] [facility] [address], [place] [address] documented as of this encounter Visit Diagnoses Diagnosis Aortic valve stenosis, etiology of cardiac valve disease unspecified documented in this encounter Care Teams Rn Lvn Relationship Specialty Start Date End Date Magdalena Acosta MD [address] [place] [address] PCP - General Family Medicine 02/05/23 documented as of this encounter
--- OUTSIDE RECORDS SUMMARY | 2024-03-23 14:02 | XMS_ITS | Encounter Summary ---
Author Organization [facility] Address [facility] [place] [address] Care Team Providers Care Mixer Operator Tablets Name Role Phone Magdalena Acosta MD Primary Care Provider Encounter Details Date Type Department Care Team (Late st Contact Info) Description 03/29/2023 Orders Only Cardiology at [address] [phone] Ranjan Delgado MD [facility] [place] [address] Severe aortic stenosis (Primary Dx) Social History [...] 4:15 PM EDT Office Visit Dermatology at [place] [address] [place] [address] Marek Bonilla MD [address] [facility] [address] Scheduled Orders Name Type Priority [...] disorders documented in this encounter Care Teams Mixer Operator Tablets Relationship Specialty Start Date End Date Magdalena Acosta MD [address] [place] [address] PCP - General Family Medicine 02/05/23 documented as of this encounter
--- OUTSIDE RECORDS SUMMARY | 2024-03-23 14:02 | XMS_ITS | Encounter Summary ---
Author Organization [facility] [place] [address] Care Team Providers Care Machine Puller And Laster Name Role Phone Magdalena Acosta MD Primary Care Provider [phone] Encounter Details Date Type Department Care Team (Latest Contact Info) Description 02/05/2023 9:33 PM EDT - 02/05/2023 11:59 PM EDT Hospital [place] [address] Discharge Disposition: Home Social History Tobacco Use [...] 4:15 PM EDT Office Visit Dermatology at [place] [address] [place] [address] Marek Bonilla MD [address] [facility] [place] [address] documented as of this encounter Procedures Procedure Name Priority Date/Time Associated Diagnosis Comments SURGICAL PATHOLOGY REPORT Routine 02/05/2023 3:00 PM EDT documented in this encounter Results * Surgical Pathology Report (02/05/2023 3:00 PM EDT) Final Diagnosis [id number] ? Location: OPW The signing pathologist has (i) examined the relevant preparation(s) for the specimen(s) and (ii) rendered or confirmed the diagnosis(es). . ?Surgical Pathology DIAGNOSIS Left upper back, skin punch biopsy: - ??Compound dysplastic ??melanocytic nevus with moderate atypia, transected at peripheral specimen edges ?? (see discussion) Electronically signed by: ?Vanna CULP, Jesse Shields Verified: ??02/16/2023 8:04 ?? Dermatopathologist Performed at: ??-[facility] Dept. of Pathology, [place] [address] Call Center Nurse: Kunal Rubi MD, FCAP, ??CLIA Certificate: [id number] DISCUSSION If there is an obvious clinical [...] labeled A1. ??sns 02/16/2023 8:04 AM EDT [facility] SPECIMEN FROM SKIN / Unknown 02/05/2023 3:00 PM EDT 02/05/2023 3:00 PM EDT Marek Bonilla MD PATHOLOGY/CYTOLOGY O RDERABLES [facility] [place] [address] [facility] [place] [address] documented in this encounter Visit Diagnoses Not on filedocumented in this encounter Care Teams Machine Puller And Laster Relationship Specialty Start Date End Date Magdalena Acosta MD [address] [place] [address] PCP - General Family Medicine 02/05/23 documented as of this encounter
--- OUTSIDE RECORDS SUMMARY | 2024-03-23 14:02 | XMS_ITS | Encounter Summary ---
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 documented in this encounter Plan of Treatment Upcoming Encounters Date Type Department Care Team (Late st Contact Info) Description 03/01/2025 4:15 PM EDT Office Visit Dermatology at [place] [address] [facility] [place] [address] Marek Bonilla MD [address], [place] [address] documented as of this encounter Visit Diagnoses Not on filedocumented in this encounter Care Teams Grounds/Maintenance Specialist Relationship Specialty Start Date End Date Magdalena Acosta MD [address] [place] [address] PCP - General Family Medicine 02/05/23 documented as of this encounter
--- OUTSIDE RECORDS SUMMARY | 2024-03-23 14:02 | XMS_ITS | Encounter Summary ---
Author Organization [facility] [address] Care Team Providers Care Car Repairer Pullman Name Role Phone Deborah Quiroga APRN Primary Care Provider Encounter Details Date Type Department Care Team (Late st Contact Info) Description 06/17/2022 Ancillary Procedure [place]iology [place] [phone] Deborah Quiroga, BUDGET COUNSELOR [address] [address] Social History Tobacco Use Types Packs/Day Years [...] 4:15 PM EDT Office Visit Dermatology at [place] [address] [facility] [place] [address] Marek Bonilla MD [address] [facility] [place] [address] documented as of this encounter Procedures Procedure [...] FILM LIBRARY OR DERABLES Performing Organization Address City/State/[facility] Co de Phone Number [place], [place] documented in this encounter Visit Diagnoses Not on filedocumented in this encounter Care Teams Car Repairer Pullman Relationship Specialty Start Date End Date Deborah Quiroga APRN PCP - General Family Medicine 03/24/16 02/04/23 documented as of this encounter
--- OUTSIDE RECORDS SUMMARY | 2024-03-23 14:02 | XMS_ITS | Encounter Summary ---
Author Organization [facility] Address [facility] [place] [address] Care Team Providers Care Turn Down Worker Name Role Phone Magdalena Acosta MD Primary Care Provider [phone] Encounter Details Date Type Department Care Team (Late st Contact Info) Description 04/27/2023 3:00 PM EDT Office [place] [address] Magdalena Peralta MD [facility] [place] [address] Mixed connective tissue disease Social History Tobacco [...] 1:5120 speckled; VIC negative; Myositis panel with MANAGER CASE MANAGEMENT ab 149.1 (positive); Anti U1RNP IgG 119; [...] 4:15 PM EDT Office Visit Dermatology at [place] [address] [facility] [place] [address] Marek Bonilla MD [address] [facility] [place] [address] documented as of this encounter Visit Diagnoses Diagnosis Mixed connective tissue disease Other specified diffuse disease of connective tissue documented in this encounter Care Teams Turn Down Worker Relationship Specialty Start Date End Date Magdalena Acosta MD [address] [place] [address] PCP - General Family Medicine 02/05/23 documented as of this encounter
--- OUTSIDE RECORDS SUMMARY | 2024-03-23 14:02 | XMS_ITS | Encounter Summary ---
[place] [address] Care Team Providers Care Lehr Loader Name Role Phone Deborah Quiroga APRN Primary Care Provider [phone] Reason for Referral * Consultation (Routine) - Closed Specialty Diagnoses / Procedures Referred By Contac t Referred To Contact Rheumatology Diagnoses Positive FRANCISCO (antinuclear antibody) Arthralgia, unspecified joint Sandy Wu APRN [address] [place] [address] [facility] Rheumatology [address] [place] [phone] Referral ID Status Reason Start Date Expiration Date V isits Requested Visits Authorized [id number] Closed Consult, Test & Treat PCP Updated and/or Approved 01/01/2022 01/01/2023 6 6 Encounter Details Date Type Department Care Team (Latest Contact Info) Description 01/01/2022 Transcribe Orders eDH Incoming Referrals [phone] Sandy Wu APRN [address] [place], [place] [id number] Positive FRANCISCO (antinuclear antibody); Arthralgia, unspecified joint [...] 4:15 PM EDT Office Visit Dermatology at [place] [address] [facility] [place] [address] Marek Bonilla MD [address] [place] [address] Scheduled Referrals Name Type Priority Associated Diagnoses Orde r Schedule Referral to Rheumatology Outpatient Referral Routine Positive FRANCISCO (antinuclear antibody) Arthralgia, unspecified joint Ordered: 01/01/2022 documented as of this encounter Visit Diagnoses Diagnosis Positive FRANCISCO (antinuclear antibody) Other and unspecified nonspecific immunological findings Arthralgia, unspecified joint documented in this encounter Care Teams Lehr Loader Relationship Specialty Start Date End Date Deborah Quiroga APRN PCP - General Family Medicine 03/24/16 02/04/23 documented as of this encounter
--- OUTSIDE RECORDS SUMMARY | 2024-03-23 14:02 | XMS_ITS | Encounter Summary ---
[place] [address] Care Team Providers Care Floriculturist Name Role Phone Magdalena Acosta MD Primary Care Provider [phone] Encounter Details Date Type Department Care Team [...] 4:15 PM EDT Office Visit Dermatology at [address] [place] [address] Marek Bonilla MD [address] [facility] [place] [address] documented as of this encounter Visit Diagnoses Not on filedocumented in this encounter Care Teams Floriculturist Relationship Specialty Start Date End Date Magdalena Acosta MD [address] [place] [address] PCP - General Family Medicine 02/05/23 documented as of this encounter
--- OUTSIDE RECORDS SUMMARY | 2024-03-23 14:02 | XMS_ITS | Encounter Summary ---
[place] [address] Care Team Providers Care Chromosomal Disorders Counselor Name Role Phone Deborah Quiroga APRN Primary Care Provider [phone] Encounter Details Date Type Department Care Team [...] PM EDT Office Visit Dermatology at [address] [place] [address] Marek Bonilla MD [address] [facility], [place] [address] documented as of this encounter Visit Diagnoses Not on filedocumented in this encounter Care Teams Chromosomal Disorders Counselor Relationship Specialty Start Date End Date Deborah Quiroga APRN PCP - General Family Medicine 03/24/16 02/04/23 documented as of this encounter
--- OUTSIDE RECORDS SUMMARY | 2024-03-23 14:02 | XMS_ITS | Encounter Summary ---
[place] [address] Care Team Providers Care Supervisor In Charge Name Role Phone Deborah Quiroga APRN Primary Care Provider [phone] Encounter Details Date Type Department Care Team (Late st Contact Info) Description 06/05/2021 Interpretation Only [address] [address] Deborah Quiroga CHARGE LOADER [address] [address] Social History Tobacco Use Types Packs/Day Years [...] 4:15 PM EDT Office Visit Dermatology at [place] [address] [facility] [place] [address] Marek Bonilla MD [address] [facility] [place] [address] documented as of this encounter Procedures Procedure Name Priority Date/Time Associated Diagnosis Comments MAMMO SCREENING CAD BILATERAL Routine 06/05/2021 11:42 AM EDT documented in this encounter Results * Mammo Screening Cad Bilateral (06/05/2021 11:42 AM EDT) PT CLASS O DH RAD ADMITDTTM DH RAD PT RAD INFO [id number]^EV ERETT^DEBORAH^E DH RAD EXAM DESC MADDSC^SCREEN MAMMO [...] who have questions please contact the health pharmacy care coordinator that requested your imaging first. [...] patients who have questions please contactthe health pharmacy care coordinator that requested your imaging first. Deborah Quiroga APRN IMGerman MAMMO ORDERABLE S documented in this encounter Visit Diagnoses Not on filedocumented in this encounter Care Teams Supervisor In Charge Relationship Specialty Start Date End Date Deborah Quiroga APRN PCP - General Family Medicine 03/24/16 02/04/23 documented as of this encounter
--- OUTSIDE RECORDS SUMMARY | 2024-03-23 14:02 | XMS_ITS | Encounter Summary ---
Author Organization [facility] Address [facility] [place] [address] Care Team Providers Care Construction Helper Name Role Phone Deborah Quiroga ANURAG Primary Care Provider [phone] Encounter Details Date Type Department Care Team (Late st Contact Info) Description 01/14/2023 Refill Dermatology at [address] [address] Lupe Connor RN Social History [...] She would like the medication called into [facility] in [facility]. Discussed with Dr. Bonilla and he has approved refill of the Doxycycline 50 mg take one capsule by mouth daily in the evenings dispense 30 capsules with 2 refills. Patient notified. documented in this encounter Plan of Treatment Upcoming Encounters Date Type Department Care Team (Late st Contact Info) Description 03/01/2025 4:15 PM EDT Office Visit Dermatology at [place] [address] [facility] [place] [address] Marek Bonilla MD [address], [place] [address] documented as of this encounter Visit Diagnoses Not on filedocumented in this encounter Care Teams Construction Helper Relationship Specialty Start Date End Date Deborah Quiroga APRN PCP - General Family Medicine 03/24/16 02/04/23 documented as of this encounter
--- OUTSIDE RECORDS SUMMARY | 2024-03-23 14:02 | XMS_ITS | Encounter Summary ---
[place] [address] Care Team Providers Care Chemical Plant Technical Director Name Role Phone Magdalena Acosta MD Primary Care Provider Reason for Visit * Reason Comments Annual Exam Encounter Details Date Type Department Care Team (Late st Contact Info) Description 02/05/2023 2:30 PM EDT Office Visit Dermatology at [address] [address] Marek Bonilla MD [address] [facility] [place] [address] Rosacea; Ocular rosacea; Nevus Social History Tobacco [...] cutaneous and ocular 2. Previously told by regional administrative assistant that she had corneal tears from [...] PM EDT Office Visit Dermatology at [address] [phone] Marek Bonilla MD [address] [facility] [place] [address] documented as of this encounter Visit Diagnoses Diagnosis Rosacea Ocular rosacea Rosacea Nevus Benign neoplasm of skin, site unspecified documented in this encounter Care Teams Chemical Plant Technical Director Relationship Specialty Start Date End Date Magdalena Acosta MD [address] [place] [address] PCP - General Family Medicine 02/05/23 documented as of this encounter
--- OUTSIDE RECORDS SUMMARY | 2024-03-23 14:02 | XMS_ITS | Encounter Summary ---
Author Organization [facility] Address [facility] [place] [address] Care Team Providers Care Bulk Gas Specialist Name Role Phone Magdalena Acosta MD Primary Care Provider [phone] Reason for Visit * Consultation (Routine) - Closed Specialty Diagnoses / Procedures Referred By Contac t Referred To Contact Rheumatology Diagnoses Weakness Kyra Haas MD [facility] [address] [place] [address] [facility] [address] [place] [phone] Referral ID Status Reason Start Date Expiration Date V isits Requested Visits Authorized [id number] Closed Consult, Test & Treat PCP Updated and/or Approved 02/25/2023 02/25/2024 6 6 Encounter Details Date Type Department Care Team (Late st Contact Info) Description 03/18/2023 1:00 PM EDT Office [place] [address] Kia Viramontes DO [facility] [place] [address] Magdalena Peralta MD [facility] [place] [address] Positive FRANCISCO (antinuclear antibody) Social [...] 1:5120 speckled VIC negative Myositis panel with CROP SUPERVISOR ab 149.1 (positive) Anti U1RNP IgG 119 [...] a chair without assistance of upper extremities. [place] strength 3+/5 bilaterally; otherwise large muscle groups [...] due to risk of retinal toxicity with assisted Plaquenil use, which she already does. Recommendations: #mixed connective tissue disease Start hydroxychloroquine 200 mg qd Labs today: repeat FRANCISCO, dsDNA, complements, CBC, CMP, CK, ESR, CRP Follow up 1 month The patient was seen and discussed with Dr. Wander Peralta MD Rheumatology Fellow Pager: [phone] CC: Kyra Haas * Kia Viramontes DO - 03/18/2023 1:00 PM EDT ATTENDING ADDENDUM The patient's history was reviewed, and I interviewed and examined the patient with Dr. Campbell. Arnold with her summary, findings, and plan. documented in this encounter Plan of Treatment Upcoming Encounters Date Type Department Care Team (Late st Contact Info) Description 03/01/2025 4:15 PM EDT Office Visit Dermatology at [place] [address] [place] [address] Marek Bonilla MD [address] [facility], [place] [address] documented as of this encounter Results * Comprehensive metabolic panel (non-fasting) (03/18/2023 2:14 PM EDT) Glucose 93 65 - 199 mg/dL [facility] Comment:Diabetes: >=200 mg/d L plus symptoms Blood Urea Nitrogen 18 8 - 18 mg/dL [facility] Creatinine 0.99 0.70 - 1.20 mg/dL [facility] Sodium 141 135 - 145 mmol/L [facility] Potassium 4.5 3.5 - 5.0 mmol/L [facility] Comment: Please note: ??Patients with WBC >100,000 may have falsely elevated Potassium levels. ??For accurate Potassium quantification in these patients send serum separator tube (gold top) for subsequent determinations. ??Contact the Clinical Chemistry Laboratory if there are any questions. Chloride 106 98 - 107 mmol/L [facility] Carbon Dioxide 24 22 - 31 mmol/L [facility] Anion Gap 11 5 - 15 mmol/L [facility] Calcium 10.0 8.5 - 10.5 mg/dL [facility] Protein, Total 7.3 6.1 - 8.0 g/dL [facility] Albumin 4.3 3.2 - 5.2 g/dL [facility] Aspartate Aminotransferase 26 0 - 30 unit/L [facility] Alanine Aminotransferase 11 0 - 30 unit/L [facility] Alkaline Phosphatase 91 35 - 105 unit/L [facility] Bilirubin, Total 0.4 0.2 - 1.3 mg/dL [facility] Est Glomerular Filtration Rate 62 >=60 mL/min/1. 73 m?? [facility] Comment: This patient's estimated GFR was [...] DO CHEMISTRY ORDERABL ES Performing Organization Address City/State/[facility] Co de Phone Number [facility] [place] [address] * (ABNORMAL) FRANCISCO Ab by IFA (03/18/2023 2:14 PM EDT) FRANCISCO Ab Screen Test ? Result ?Flag ??Unit ??RefValue Antinuclear Ab, HEp-2 ?Positive 1:2560 ??@ ?<1:80 (Negative) ??Substrate, S ? ADDITIONAL INFORMATION --------- ?Method: Immunofluorescence using HEp-2 cellular substrate. ??FRANCISCO Titer: ? 1:2560 ??FRANCISCO Pattern: ? Speckled ?Test Performed by: ?[facility] ?[address] [place] [address] ?Caregivers Non Medical: Raymond Chaudhry M.D. Ph.D.; CLIA# [id number] ([id number]) [facility] Blood 03/18/2023 2:14 PM EDT 03/18/2023 3:02 PM EDT Narrative Resulting Agency Comment Spec In Lab Kia Viramontes DO CHEMISTRY ORDERABL ES Performing Organization Address [facility] de Phone Number [facility] [place] [address] * DNA Antibody (Double-Stranded) (03/18/2023 2:14 PM EDT) [facility] dsDNA Ab <0.6 <=15.0 IU/mL [facility] Comment: <10 negative 10-15 equivocal >15 positive This dsDNA antibody result was generated using a fluoroenzyme immunoassay on the [employer]ixDirectdia 250 analyzer. This quantitative test is designed to detect IgG antibodies directed against double stranded DNA in human serum. The presence of antibodies that recognize dsDNA is a highly specific marker for systemic lupus erythematosus. Please note that as of 05/26/2022 that this testing is performed by the Special Chemistry Laboratory at [facility]. This change in testing location is associated with a change is testing method and reference intervals. Please review the results of this test in association with the posted reference intervals. Blood 03/18/2023 2:14 PM EDT 03/19/2023 7:19 AM EDT Narrative Resulting Agency Comment Spec In Lab Kia Viramontes DO LAB SEND OUT ORDER JODIE Performing Organization Address [facility]/ZIP Co de Phone Number [facility] [place] [address] * CK (03/18/2023 2:14 PM EDT) Creatine Kinase 38 0 - 160 unit/L [facility] Blood 03/18/2023 2:14 PM EDT 03/18/2023 2:24 PM EDT Narrative Resulting Agency Comment Spec In Lab Kia D Wander DO CHEMISTRY ORDERABL ES Performing Organization Address [facility] Co de Phone Number [facility] [place] [address] * C4 Complement (03/18/2023 2:14 PM EDT) Complement C4 30 10 - 40 mg/dL [facility] Blood 03/18/2023 2:14 PM EDT 03/18/2023 2:24 PM EDT Narrative Resulting Agency Comment Spec In Lab Kia D Wander DO CHEMISTRY ORDERABL ES Performing Organization Address [facility] Co de Phone Number [facility] [place] [address] * C3 Complement (03/18/2023 2:14 PM EDT) Complement C3 142 90 - 180 mg/dL [facility] Blood 03/18/2023 2:14 PM EDT 03/18/2023 2:24 PM EDT Narrative Resulting Agency Comment Spec In Lab Kia D Wander DO CHEMISTRY ORDERABL ES Performing Organization Address [facility] Co de Phone Number [facility] [place] [address] * CRP, acute inflammation (03/18/2023 2:14 PM EDT) C-Reactive Protein 3.0 <=4.9 mg/L [facility] Blood 03/18/2023 2:14 PM EDT 03/18/2023 2:24 PM EDT Narrative Resulting Agency Comment Spec In Lab Kia Viramontes DO CHEMISTRY ORDERABL ES Performing Organization Address City/[facility]/ZIP Co de Phone Number [facility] [place] [address] * (ABNORMAL) Sedimentation rate (03/18/2023 2:14 PM EDT) Sedimentation Rate Automated 68(H) 2 - 39 mm/hr [facility] Comment: Effective July 12, 2019 new capillary photometric technology has resulted in a change in reference ranges. It is recommended that each ESR result be reviewed with its own age appropriate reference range. Blood 03/18/2023 2:14 PM EDT 03/18/2023 2:24 PM EDT Narrative Resulting Agency Comment Spec In Lab Kia Viramontes DO HEMATOLOGY ORDERAB LES Performing Organization Address City/[facility] Co de Phone Number [facility] [place] [address] documented in this encounter Visit Diagnoses Diagnosis Positive FRANCISCO (antinuclear antibody) Other and unspecified nonspecific immunological findings documented in this encounter Care Teams Bulk Gas Specialist Relationship Specialty Start Date End Date Magdalena Acosta MD [address] [place] [address] PCP - General Family Medicine 02/05/23 documented as of this encounter
--- OUTSIDE RECORDS SUMMARY | 2024-03-23 14:02 | XMS_ITS | Encounter Summary ---
Author Organization [facility] [place] [address] Care Team Providers Care Taper And Floater Name Role Phone Deborah Quiroga APRN Primary Care Provider [phone] Reason for Referral * Consultation (Routine) - Closed Specialty Diagnoses / Procedures Referred By Crispin maxwell Referred To Contact Neurology Diagnoses Polyneuropathy Deborah Quiroga APRN [address] [place] [address] [facility] [address] [place] [phone] Referral ID Status Reason Start Date Expiration Date V isits Requested Visits Authorized [id number] Closed Consult, Test & Treat 10/29/2022 10/29/2023 1 1 Encounter Details Date Type Department Care Team (Latest Contact Info) Description 10/29/2022 Transcribe Orders eDH Incoming Referrals [phone] Deborah Quiroga APRN [address] [place] [address] Polyneuropathy (Primary Dx) Social History [...] 4:15 PM EDT Office Visit Dermatology at [place] [address] [place] [address] Marek Bonilla MD [address] [place] [address] Scheduled Referrals Name Type Priority Associated Diagnoses Orde r Schedule Referral to Neurology Outpatient Referral Routine Polyneuropathy Ordered: 10/29/2022 documented as of this encounter Visit Diagnoses Diagnosis Polyneuropathy- Primary Unspecified hereditary and idiopathic peripheral neuropathy documented in this encounter Care Teams Taper And Floater Relationship Specialty Start Date End Date Deborah Quiroga APRN PCP - General Family Medicine 03/24/16 02/04/23 documented as of this encounter
--- OUTSIDE RECORDS SUMMARY | 2024-03-23 14:02 | XMS_ITS | Encounter Summary ---
[place] [address] Care Team Providers Care Drafting Teacher Name Role Phone Magdalena Acosta MD Primary Care Provider [phone] Encounter Details Date Type Department Care Team [...] PM EDT Office Visit Dermatology at [address] [place] [address] Marek Bonilla MD [address] [facility] [place] [address] documented as of this encounter Visit Diagnoses Not on filedocumented in this encounter Care Teams Drafting Teacher Relationship Specialty Start Date End Date Magdalena Acosta MD [address] [place] [address] PCP - General Family Medicine 02/05/23 documented as of this encounter
--- OUTSIDE RECORDS SUMMARY | 2024-03-23 14:02 | XMS_ITS | Encounter Summary ---
Author Organization [facility] [place] [address] Care Team Providers Care Roller Embosser Name Role Phone Magdalena Acosta MD Primary Care Provider [phone] Encounter Details Date Type Department Care Team (Late st Contact Info) Description 05/08/2023 Telephone [place] [phone] Luis Felipe Ott MD [facility] [place] [address] Social History Tobacco Use Types Packs/Day Years [...] Referring Provider: Nitesh Baltazar Patient Location: [facility] Presenting Symptoms per OSH: 67 year [...] diuresis with IV furosemide 20 x 1 ([id number]/47 at rheumatology appointment), SpO2 85% on RA -> 95% on 2L NC, HR 120s. Examination significant for decreased breath sounds at the bases. Pertinent Diagnostic Findings: CBC - Hgb 10.5 CMP - Cr 1.1 BNP 78062 HsTrop 1358 Lactate 1.6 D-dimer 1183, CTPE [...] examined this patient. Luis Felipe Ott MD Gastroenterology Manager Received a call from provider emergently [...] those things remain stable. Nico Segura, PGY-6 Gastroenterology Manager [id number] documented in this encounter Plan of Treatment Upcoming Encounters Date Type Department Care Team (Late st Contact Info) Description 03/01/2025 4:15 PM EDT Office Visit Dermatology at [place] [address] [facility] [place] [address] Marek Bonilla MD [address] [place] [address] documented as of this encounter Visit Diagnoses Not on filedocumented in this encounter Care Teams Roller Embosser Relationship Specialty Start Date End Date Magdalena Acosta MD [address] [place] [address] PCP - General Family Medicine 02/05/23 documented as of this encounter
--- OUTSIDE RECORDS SUMMARY | 2024-03-23 14:02 | XMS_ITS | Encounter Summary ---
Author Organization [facility] [place] [address] Care Team Providers Care Airways Operations Specialist Name Role Phone Junaid Deborah Shields APRN Primary Care Provider [phone] Encounter Details Date Type Department Care Team (Latest Contact Info) Description 11/09/2022 10:37 AM EDT - 11/09/2022 4:53 PM EDT Hospital Encounter [place] [address] Nitesh Escobedo MD [facility] [address] Aortic valve stenosis, etiology of cardiac valve [...] Center 02/05/2023 2:30 PM Marek Bonilla MD [facility] New Medications to be Picked Up None For questions regarding this document or issues relating to this hospitalization on the Medical Service, please contact your inpatient physician through the [facility] Wire Drawing Machine Operator . Issues afterhours and on weekends will be handled by the Hospitalist staff on-call. * Attachments The following attachments cannot be sent through Care Everywhere. * Coronary Angiogram: Post-op (Yemeni) * Right Heart Catheterization: Pulmonary Artery Catheterization: Post-op (Yemeni) documented in this encounter Medications at Time [...] Pre-Procedure H&P Update: Cardiac Catheterization Purnima Thacker [id number] Chief Complaint: BONILLA HPI: Purnima Thacker [...] 11:43 AM [facility] Pager: [phone] documented in this encounter Plan of Treatment Upcoming Encounters Date Type Department Care Team (Late st Contact Info) Description 03/01/2025 4:15 PM EDT Office Visit Dermatology at [place] [address] [facility] [place] [phone] Marek Bonilla MD [address], [place] [address] documented as of this encounter Procedures Procedure Name Priority Date/Time Associated Diagnosis Comments CARDIAC CATHETERIZATION Routine 11/10/19 1:05 PM EDT Aortic valve stenosis, etiology of cardiac valve disease unspecified Cath Plmt Left Heart Cath & Arts W/Inj & Angio Img S&I ([id number]) 11/09/2022 11:51 AM EDT Aortic valve stenosis, etiology of cardiac valve disease unspecified EKG 12-LEAD Routine 11/09/2022 11:17 AM EDT Aortic valve stenosis, etiology of cardiac valve disease unspecified documented in this encounter Results * CARDIAC CATHETERIZATION (11/09/2022 1:05 PM EDT) Anatomical Region Laterality Modality Other Narrative 11/09/2022 2:01 PM EDT ?[facility] ? Cardiac Catheterization/Intervention Report ? Patient Name: Purnima Thacker. ? Procedure Date: 11/09/2022 ? A #: [id number] ? Primary Physician: Nitesh Escobedo ? Case #: [id number] ? File Name: [id number] ? Catheterization Order Number: [id number] ? [facility] ? Final Report [place], [place] ? Patient Name: ? Purnima M. Kirstie ? ID#: ?[id number] ? : ?1955 ? Procedure Date: ? [...] was designated as ASA Class III. The [facility] clinical frailty scale ?is 4: Vulnerable. ? [...] (Bezet) 457 ms MUSE SYSTEM Calculated P [place] 44 degrees MUSE SYSTEM Calculated R [place] 33 degrees MUSE SYSTEM Calculated T [place] 30 degrees MUSE SYSTEM INTERPRETATION Sinus rhythm Occasional Premature ventricular complexes Otherwise normal ECG When compared with ECG of 21-SEP-2016 12:26, Premature ventricular complexes are now Present CO interval has decreased Nonspecific T wave abnormality has replaced inverted T waves in Inferior leads I personally reviewed the tracing and edited the fellows interpretation Confirmed by fellow MD Welsh Hanyuan ([id number]) on 11/09/2022 6:17:28 PM Confirmed by Elsa [...] MD) documented in this encounter Care Teams Airways Operations Specialist Relationship Specialty Start Date End Date Deborah Quiroga, POWER LINE INSTALLER AND REPAIRER PCP - General Family Medicine 03/24/16 02/04/23 documented as of this encounter
--- OUTSIDE RECORDS SUMMARY | 2024-03-23 14:02 | XMS_ITS | Encounter Summary ---
[place] [address] Care Team Providers Care Solderer Electronic Name Role Phone Magdalena Acosta MD Primary Care Provider [phone] Encounter Details Date Type Department Care Team [...] PM EDT Office Visit Dermatology at [address] [place] [address] Marek Bonilla MD [address] [facility] [place] [address] documented as of this encounter Visit Diagnoses Not on filedocumented in this encounter Care Teams Solderer Electronic Relationship Specialty Start Date End Date Magdalena Acosta MD [address] [place] [address] PCP - General Family Medicine 02/05/23 documented as of this encounter
--- OUTSIDE RECORDS SUMMARY | 2024-03-23 14:02 | XMS_ITS | Encounter Summary ---
Author Organization [facility] [place] [address] Care Team Providers Care Child Care Director Name Role Phone Magdalena Acosta MD Primary Care Provider [phone] Reason for Referral * Consultation (Routine) - Closed Specialty Diagnoses / Procedures Referred By Contac t Referred To Contact Rheumatology Diagnoses Weakness Kyra Haas MD [facility] [address] [place] [address] [facility] [address] [place] [phone] Referral ID Status Reason Start Date Expiration Date V isits Requested Visits Authorized [id number] Closed Consult, Test & Treat PCP Updated and/or Approved 02/25/2023 02/25/2024 6 6 Encounter Details Date Type Department Care Team (Late st Contact Info) Description 02/25/2023 Transcribe Orders eDH Incoming Referrals [phone] Magdalena Acosta MD [address] [place] [address] Weakness Social History Tobacco Use [...] 4:15 PM EDT Office Visit Dermatology at [place] [address] [place] [address] Marek Bonilla MD [address] [facility], [place] [address] Scheduled Referrals Name Type Priority Associated Diagnoses Order Schedule Referral to Rheumatology Outpatient Referral Routine Weakness Ordered: 02/25/2023 documented as of this encounter Visit Diagnoses Diagnosis Weakness Other malaise and fatigue documented in this encounter Care Teams Child Care Director Relationship Specialty Start Date End Date Magdalena Acosta MD [address] [place] [address] PCP - General Family Medicine 02/05/23 documented as of this encounter
--- OUTSIDE RECORDS SUMMARY | 2024-03-23 14:02 | XMS_ITS | Encounter Summary ---
[place] [address] Care Team Providers Care Putty And Caulking Supervisor Name Role Phone Deborah Quiroga APRN Primary Care Provider [phone] Encounter Details Date Type Department Care Team (Late st Contact Info) Description 01/13/2021 Refill Dermatology at [address] [phone] Taylor Malone, REGULATORY COORDINATOR Social History Tobacco Use Types Packs/Day Years [...] PM EDT Office Visit Dermatology at [address] [phone] Marek Bonilla MD [address] [facility] [place] [address] documented as of this encounter Visit Diagnoses Not on filedocumented in this encounter Care Teams Putty And Caulking Supervisor Relationship Specialty Start Date End Date Deborah Quiroga APRN PCP - General Family Medicine 03/24/16 02/04/23 documented as of this encounter
--- OUTSIDE RECORDS SUMMARY | 2024-03-23 14:02 | XMS_ITS | Encounter Summary ---
[place] [address] Care Team Providers Care Hand Coremaker Name Role Phone Magdalena Acosta MD Primary Care Provider [phone] Reason for Visit * Reason Comments Suture / Staple Removal Encounter Details Date Type Department Care Team (Late st Contact Info) Description 02/16/2023 10:00 AM EDT Office Visit Dermatology at [place] [address] [facility] [place] [phone] Marek Bonilla MD [address] [facility], [address] DERMAT[address] [place], [place] [phone] Visit for suture removal Social History Tobacco [...] [address] [facility] [place] [address] Marek Bonilla MD [address] [facility] [facility] [address], [place] [address] documented as of this encounter Visit Diagnoses Diagnosis Visit for suture removal Encounter for removal of sutures documented in this encounter Care Teams Hand Coremaker Relationship Specialty Start Date End Date Magdalena Acosta MD [address] [place] [address] PCP - General Family Medicine 02/05/23 documented as of this encounter
--- OUTSIDE RECORDS SUMMARY | 2024-03-23 14:02 | XMS_ITS | Encounter Summary ---
Author Organization [facility] Address [facility] [place] [address] Care Team Providers Care Video Game Script Writer Name Role Phone Deborah Quiroga APRN Primary Care Provider [phone] Reason for Visit * Reason Comments Follow-up Encounter Details Date Type Department Care Team (Late st Contact Info) Description 07/03/2022 1:30 PM EST Office Visit [place] [address] Markel Borjas MD [facility] [address] [place] [address] Consuelo Sommer APRN [facility] [address] [place] [address] Chronic idiopathic neutropenia; Dysuria Social History Tobacco [...] 07/03/2022 1:30 PM EST Hematology Outpatient Clinic [facility] Hematology Outpatient Consult Note CC: [...] TOUCH PREP, CLOT SECTION, CORE ??BIOPSY); [OSR# [id number], COLLECTED 06/23/2016, 19 SLIDES]: ?1. 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 Extremities: No edema. Labs: Hgb= 11.7 Apjs=271 ANC= 2.5 Imaging As above - reviewed [...] 4:15 PM EDT Office Visit Dermatology at [place] [address] [place] [phone] Marek Bonilla MD [address] [facility] [place] [address] documented as of this encounter Procedures Procedure [...] - GEN ERAL ORDERABLES Performing Organization Address [facility] de Phone Number [facility] [place] [address] * (ABNORMAL) Urinalysis Microscopic Exam (07/03/2022 2:00 PM EST) RBC, Urine 2 0 - 4 /HPF [facility] WBC, Urine 14(H) 0 - 5 /HPF [facility] Bacteria, Urine Occasional (A) None /HPF [facility] Squamous Epithelial Cells Raw Data, Urine 12(H) <=4 /HPF [facility] Hyaline Casts, Urine 2 0 - 2 /LPF [facility] Clean Catch Urine 07/03/2022 2:00 PM EST 07/03/2022 2:29 PM EST Narrative Resulting Agency Comment Spec In Lab Markel Borjas MD URINE ORDERABLES Performing Organization Address [facility] de Phone Number [facility] [place] [address] * (ABNORMAL) Urinalysis with reflex Culture (07/03/2022 2:00 PM EST) Glucose, Urine Dipstick Negative Negative mg/dL [facility] Protein, Urine Dipstick 30(A) Negative mg/dL [facility] Bilirubin, Urine Dipstick Negative Negative mg/dL [facility] Comment: Clinical correlation required for positive Urine Bilirubin results as false positive may occur with some drugs and drug related products. If a false positive is suspected a serum total bilirubin should be considered if clinically indicated. Urobilinogen, Urine Dipstick Normal Normal mg/dL [facility] pH, Urn (dipstick) 5.5 5.0 - 8.0 [facility] Blood, Urine Dipstick Negative Negative mg/dL [facility] Ketone, Urine Dipstick Trace(A) Negative mg/dL [facility] Nitrite, Urine Dipstick Negative Negative [facility] Leukocytes, Urine Dipstick Small(A) Negative [facility] Appearance, Urine Dipstick Clear Clear [facility] Specific [place] Urine Automated 1.022 1.005 - 1.030 [facility] Color, Urine Dipstick Yellow Yellow [facility] Reflex to Culture Yes [facility] Clean Catch Urine 07/03/2022 2:00 PM EST 07/03/2022 2:29 PM EST Narrative Resulting Agency Comment Spec In Lab Markel Borjas MD URINE ORDERABLES [facility] [place] [address] * (ABNORMAL) Comprehensive metabolic panel (non-fasting) (07/03/2022 12:40 PM EST) Glucose 92 65 - 199 mg/dL [facility] Comment:Diabetes: >=200 mg/d L plus symptoms Blood Urea Nitrogen 22(H) 8 - 18 mg/dL [facility] [...] - 107 mmol/L [facility] Carbon Dioxide 23 22 - 31 mmol/L [facility] Anion Gap 11 5 - 15 mmol/L [facility] Calcium 10.1 8.5 - 10.5 mg/dL [facility] Protein, Total 7.6 6.1 - 8.0 g/dL [facility] Albumin 4.1 3.2 - 5.2 g/dL [facility] Aspartate Aminotransferase 25 0 - 30 unit/L [facility] Alanine Aminotransferase 14 0 - 30 unit/L [facility] Alkaline Phosphatase 80 35 - 105 unit/L [facility] Bilirubin, Total 0.3 0.2 - 1.3 mg/dL [facility] Est Glomerular Filtration Rate 81 >=60 mL/min/1. 73 m?? [facility] [...] CHEMISTRY ORDERABL ES [facility] [place] [place] [address] documented in this encounter Visit Diagnoses Diagnosis Chronic idiopathic neutropenia Other neutropenia Dysuria documented in this encounter Care Teams Video Game Script Writer Relationship Specialty Start Date End Date Deborah Quiroga APRN PCP - General Family Medicine 03/24/16 02/04/23 documented as of this encounter
--- OUTSIDE RECORDS SUMMARY | 2024-03-23 14:02 | XMS_ITS | Encounter Summary ---
Author Organization [facility] [place] [address] Care Team Providers Care Corrective Therapist Name Role Phone Deborah Quiroga APRN Primary Care Provider [phone] Encounter Details Date Type Department Care Team (Late st Contact Info) Description 06/08/2022 Ancillary Procedure [place] [address] Deborah Quiroga, SCROLL SAW OPERATOR [address] [address] Social History Tobacco Use Types Packs/Day Years [...] 4:15 PM EDT Office Visit Dermatology at [place] [address] [facility] [place] [address] Marek Bonilla MD [address] [facility], [address] [place] [address] documented as of this encounter Procedures Procedure [...] City/State/[facility] Co de Phone Number [place], [place] documented in this encounter Visit Diagnoses Not on filedocumented in this encounter Care Teams Corrective Therapist Relationship Specialty Start Date End Date Deborah Quiroga APRN PCP - General Family Medicine 03/24/16 02/04/23 documented as of this encounter
--- OUTSIDE RECORDS SUMMARY | 2024-03-23 14:02 | XMS_ITS | Encounter Summary ---
[place] [address] Care Team Providers Care Strip Cutting Machine Operator Name Role Phone Deborah Quiroga APRN Primary Care Provider [phone] Encounter Details Date Type Department Care Team (Late st Contact Info) Description 01/09/2022 Refill Dermatology at [address] [phone] Lupe Connor RN Social History Tobacco Use [...] PM EDT Office Visit Dermatology at [address] [phone] Marek Bonilla MD [address] [facility] [place] [address] documented as of this encounter Visit Diagnoses Not on filedocumented in this encounter Care Teams Strip Cutting Machine Operator Relationship Specialty Start Date End Date Deborah Quiroga APRN PCP - General Family Medicine 03/24/16 02/04/23 documented as of this encounter
--- OUTSIDE RECORDS SUMMARY | 2024-03-23 14:02 | XMS_ITS | Encounter Summary ---
Author Organization [facility] Address [facility] [place] [address] Care Team Providers Care Lawn Service Worker Name Role Phone Ashley Quirogazac Shields APRN Primary Care Provider [phone] Reason for Referral * Consultation (Routine) - Closed Specialty Diagnoses / Procedures Referred By Contac t Referred To Contact Neurology Diagnoses Neck pain Popeye Rogers MD [facility] [place] [address] Kyra Haas MD [facility] [address] [address] Referral ID Status Reason Start Date Expiration Date V isits Requested Visits Authorized [id number] Closed Consult, Test & Treat 06/29/2022 06/29/2023 1 1 Reason for Visit * Reason Comments Neck Pain Weak in both arms, p ain and tingling in arms and hands Encounter Details Date Type Department Care Team (Late st Contact Info) Description 06/29/2022 10:20 AM EST Office Visit [facility] [place] [address] Popeye Rogers MD [facility] [place] [address] Neck pain Social History Tobacco Use Types [...] have EMG and nerve conduction studies in [place] that showed carpal tunnel syndrome. I do not have a copy of that report. documented in this encounter Plan of Treatment Upcoming Encounters Date Type Department Care Team (Late st Contact Info) Description 03/01/2025 4:15 PM EDT Office Visit Dermatology at [place] [address] [facility] [place] [address] Marek Bonilla MD [address] [facility] [address] [address] [address] [place] [address] Scheduled Referrals Name Type Priority Associated Diagnoses Orde r Schedule Referral to Neurology Outpatient Referral Routine Neck pain Ordered: 06/29/2022 documented as of this encounter Visit Diagnoses Diagnosis Neck pain Cervicalgia documented in this encounter Care Teams Lawn Service Worker Relationship Specialty Start Date End Date Deborah Quiroga APRN PCP - General Family Medicine 03/24/16 02/04/23 documented as of this encounter
--- OUTSIDE RECORDS SUMMARY | 2024-03-23 14:02 | XMS_ITS | Encounter Summary ---
[place] [address] Care Team Providers Care Chief Librarian Branch Name Role Phone Magdalena Acosta MD Primary Care Provider [phone] Encounter Details Date Type Department Care Team (Latest Contact Info) Description 03/18/2023 2:30 PM EDT Laboratory Appointment Lab [address] [phone] Positive FRANCISCO (antinuclear antibody) Social History Tobacco [...] 4:15 PM EDT Office Visit Dermatology at [place] [address] [place] [address] Marek Bonilla MD [address], [place] [address] documented as of this encounter Procedures Procedure [...] 2:14 PM EDT) Neutrophil % 71.2 % [facility] Neutrophil Absolute 2.26 1.70 - 6.10 x10(3)/mc L [facility] Lymph % 18.2 % [facility] Lymphocytes Abs 0.6(L) 0.9 - 3.2 x10(3)/mc L [facility] Monocyte % 9.7 % [facility] Monocyte Abs 0.3 0.3 - 0.9 x10(3)/mc L [facility] Eos % 0.3 % [facility] Eosinophils Abs 0.0 0.0 - 0.4 x10(3)/mc L [facility] Basophil % 0.6 % [facility] Baso Absolute 0.0 0.0 - 0.1 x10(3)/[facility] Immature Gran % 0.00 % [facility] Comment: Immature granulocytes(IG's)percentage and absolute count will include metamyelocytes, myelocytes, and promyelocytes. Blood smears from CBCs yielding IG's will be scanned manually for concordance. If this scan disagrees with the automated IG or if promyelocytes are noted, a manual differential will be performed. Immature Gran Absolute 0.00 0.00 - 0.04 x10(3)/[facility] Blood 03/18/2023 2:14 PM EDT 03/18/2023 2:24 PM EDT Narrative Resulting Agency Comment Spec In Lab Magdalena Peralta MD HEMATOLOGY ORDERABLE S Performing Organization Address City/State/[facility] Co de Phone Number [facility] [address] * (ABNORMAL) Hemogram (03/18/2023 2:14 PM EDT) White Blood Cell 3.2(L) 4.0 - 9.5 x10(3)/[facility] Red Blood Cell 3.44(L) 4.00 - 5.21 x10(6)/[facility] Hemoglobin 11.1(L) 11.7 - 15.5 g/dL [facility] Hematocrit 32.9(L) 35.7 - 45.8 % [facility] Mean Cell Volume 95.6(H) 82.6 - 94.4 fL [facility] Mean Cell Hemoglobin 32.3(H) 27.1 - 32.0 pg [facility] Mean Cell Hemoglobin Concentration 33.7 31.7 - 35.0 g/dL [facility] Platelet 144(L) 145 - 357 x10(3)/[facility] RDW Standard Deviation 42.6 37.0 - 46.0 fL [facility] RDW coefficient of variation 12.3 11.5 - 14.1 % [facility] Mean Platelet Volume 9.4 7.6 - 12.9 fL [facility] NRBC% auto 0.0 % [facility] NRBC Absolute 0.000 0.000 - 0.000 x10(3)/mc L [facility] Blood 03/18/2023 2:14 PM EDT 03/18/2023 2:24 PM EDT Narrative Resulting Agency Comment Spec In Lab Magdalena Peralta MD HEMATOLOGY ORDERABLE S Performing Organization Address [facility] Co de Phone Number [facility] [address] * (ABNORMAL) Sedimentation rate (03/18/2023 2:14 PM EDT) Sedimentation Rate Automated 68(H) 2 - 39 mm/hr [facility] Comment: Effective July 12, 2019 new capillary photometric technology has resulted in a change in reference ranges. It is recommended that each ESR result be reviewed with its own age appropriate reference range. Blood 03/18/2023 2:14 PM EDT 03/18/2023 2:24 PM EDT Narrative Resulting Agency Comment Spec In Lab Kia Viramontes DO HEMATOLOGY ORDERAB LES Performing Organization Address [facility] Co de Phone Number [facility] [address] * CRP, acute inflammation (03/18/2023 2:14 PM EDT) C-Reactive Protein 3.0 <=4.9 mg/L [facility] Blood 03/18/2023 2:14 PM EDT 03/18/2023 2:24 PM EDT Narrative Resulting Agency Comment Spec In Lab Kia Viramontes DO CHEMISTRY ORDERABL ES Performing Organization Address [facility] Co de Phone Number [facility] [address] * C3 Complement (03/18/2023 2:14 PM EDT) Complement C3 142 90 - 180 mg/dL [facility] Blood 03/18/2023 2:14 PM EDT 03/18/2023 2:24 PM EDT Narrative Resulting Agency Comment Spec In Lab Kia Viramontes DO CHEMISTRY ORDERABL ES Performing Organization Address [facility] de Phone Number [facility] [address] * C4 Complement (03/18/2023 2:14 PM EDT) Complement C4 30 10 - 40 mg/dL [facility] Blood 03/18/2023 2:14 PM EDT 03/18/2023 2:24 PM EDT Narrative Resulting Agency Comment Spec In Lab Kia Viramontes DO CHEMISTRY ORDERABL ES Performing Organization Address [facility] de Phone Number [facility] [address] * CK (03/18/2023 2:14 PM EDT) Creatine Kinase 38 0 - 160 unit/L [facility] Blood 03/18/2023 2:14 PM EDT 03/18/2023 2:24 PM EDT Narrative Resulting Agency Comment Spec In Lab Kia Viramontes DO CHEMISTRY ORDERABL ES Performing Organization Address [facility] de Phone Number [facility] [address] * DNA Antibody (Double-Stranded) (03/18/2023 2:14 PM EDT) dsDNA Ab <0.6 <=15.0 IU/mL [facility] Comment: <10 negative 10-15 equivocal >15 positive This dsDNA antibody result was generated using a fluoroenzyme immunoassay on the [employer] 250 analyzer. This quantitative test is designed to detect IgG antibodies directed against double stranded DNA in human serum. The presence of antibodies that recognize dsDNA is a highly specific marker for systemic lupus erythematosus. Please note that as of 05/26/2022 that this testing is performed by the Special Chemistry Laboratory at [facility]. This change in testing location is associated with a change is testing method and reference intervals. Please review the results of this test in association with the posted reference intervals. Blood 03/18/2023 2:14 PM EDT 03/19/2023 7:19 AM EDT Narrative Resulting Agency Comment Spec In Lab Kia Viramontes DO LAB SEND OUT ORDER JODIE [facility] [address] * (ABNORMAL) FRANCISCO Ab by IFA (03/18/2023 2:14 PM EDT) FRANCISCO Ab Screen Test ? Result ?Flag ??Unit ??RefValue Antinuclear Ab, HEp-2 ?Positive 1:2560 ??@ ?<1:80 (Negative) ??Substrate, S ? ADDITIONAL INFORMATION --------- ?Method: Immunofluorescence using HEp-2 cellular substrate. ??FRANCISCO Titer: ? 1:2560 ??FRANCISCO Pattern: ? Speckled ?Test Performed by: ?[facility] ?[address] [place] [address] ?[employer] Associate: Raymond Chaudhry M.D. Ph.D.; CLIA# [id number] ([id number]) [facility] Blood 03/18/2023 2:14 PM EDT 03/18/2023 3:02 PM EDT Narrative Resulting Agency Comment Spec In Lab Kia James Wander DO CHEMISTRY ORDERABL ES [facility] [place] [address] * Comprehensive metabolic panel (non-fasting) (03/18/2023 2:14 PM EDT) Glucose 93 65 - 199 mg/dL [facility] Comment:Diabetes: >=200 mg/d L plus symptoms Blood Urea Nitrogen 18 8 - 18 mg/dL [facility] Creatinine 0.99 0.70 - 1.20 mg/dL [facility] Sodium 141 135 - 145 mmol/L [facility] Potassium 4.5 3.5 - 5.0 mmol/L [facility] Comment: Please note: ??Patients with WBC >100,000 may have falsely elevated Potassium levels. ??For accurate Potassium quantification in these patients send serum separator tube (gold top) for subsequent determinations. ??Contact the Clinical Chemistry Laboratory if there are any questions. Chloride 106 98 - 107 mmol/L [facility] Carbon Dioxide 24 22 - 31 mmol/L [facility] Anion Gap 11 5 - 15 mmol/L [facility] Calcium 10.0 8.5 - 10.5 mg/dL [facility] Protein, Total 7.3 6.1 - 8.0 g/dL [facility] Albumin 4.3 3.2 - 5.2 g/dL [facility] Aspartate Aminotransferase 26 0 - 30 unit/L [facility] Alanine Aminotransferase 11 0 - 30 unit/L [facility] Alkaline Phosphatase 91 35 - 105 unit/L [facility] Bilirubin, Total 0.4 0.2 - 1.3 mg/dL [facility] Est Glomerular Filtration Rate 62 >=60 mL/min/1. 73 m?? [facility] Comment: This patient's estimated GFR was [...] DO CHEMISTRY ORDERABL ES Performing Organization Address City/State/[facility] [place] [address] documented in this encounter Visit Diagnoses Diagnosis Positive FRANCISCO (antinuclear antibody) Other and unspecified nonspecific immunological findings documented in this encounter Care Teams Chief Librarian Branch Relationship Specialty Start Date End Date Magdalena Acosta MD [address] [place] [address] PCP - General Family Medicine 02/05/23 documented as of this encounter
--- OUTSIDE RECORDS SUMMARY | 2024-03-23 14:02 | XMS_ITS | Encounter Summary ---
Author Organization [facility] Address [facility] [place] [address] Care Team Providers Care Fisher Name Role Phone Deborah Quiroga APRN Primary Care Provider [phone] Encounter Details Date Type Department Care Team (Latest Contact Info) Description 07/03/2022 1:36 PM EST - 07/03/2022 11:59 PM EST Hospital Encounter Hematology [place] [address] Discharge Disposition: Home Social History Tobacco Use [...] 4:15 PM EDT Office Visit Dermatology at [place] [address] [place] [address] Marek Bonilla MD [address] [facility] [place] [address] documented as of this encounter Procedures Procedure Name Priority Date/Time Associated Diagnosis Comments FOLATE, SERUM Routine 07/03/2022 1:59 PM EST VITAMIN B12 Routine 07/03/2022 1:59 PM EST documented in this encounter Results * Folate, serum (07/03/2022 1:59 PM EST) Folate >20.0 4.8 - 24.2 ng/mL [facility] Blood Venous Draw / Unknown 07/03/2022 1:59 PM EST 07/03/2022 2:13 PM EST Narrative Resulting Agency Comment Spec In Lab Markel Borjas MD CHEMISTRY ORDERABL ES Performing Organization Address City/[facility]/ZIP Co de Phone Number [facility] [place] [address] * Vitamin B12 (07/03/2022 1:59 PM EST) Vitamin B12 449 232 - 1,245 pg/mL [facility] Blood Venous Draw / Unknown 07/03/2022 1:59 PM EST 07/03/2022 2:13 PM EST Narrative Resulting Agency Comment Spec In Lab Markel Borjas MD CHEMISTRY ORDERABL ES Performing Organization Address [facility] [place] [address] documented in this encounter Visit Diagnoses Not on filedocumented in this encounter Care Teams Fisher Relationship Specialty Start Date End Date Deborah Quiroga APRN PCP - General Family Medicine 03/24/16 02/04/23 documented as of this encounter
--- OUTSIDE RECORDS SUMMARY | 2024-03-23 14:02 | XMS_ITS | Encounter Summary ---
[place] [address] Care Team Providers Care Rotor Plate Washer Name Role Phone Deborah Quiroga APRN Primary Care Provider [phone] Encounter Details Date Type Department Care Team (Late st Contact Info) Description 06/05/2021 Interpretation Only [address] [address] Deborah Quiroga CLOTH FOLDER HAND [address] [id number] Social History Tobacco Use Types Packs/Day Years [...] EDT Office Visit Dermatology at [place] [address] [place] [address] Marek Bonilla MD [address] [facility] [place] [address] documented as of this encounter Procedures Procedure Name Priority Date/Time Associated Diagnosis Comments MAMMO SCREENING CAD AND CATRACHITO BILATERAL Routine 06/05/2021 11:42 AM EDT documented in this encounter Results * Mammo Screening Cad and Catrachito Bilateral (06/05/2021 11:42 AM EDT) PT CLASS O DH RAD ADMITDTTM DH RAD PT DH RAD INFO [id number]^EVERET T^DEBORAH^E DH RAD EXAM DESC MADDSCTO^BREAST SCREEN [...] have questions please contact the health career discovery teacher that requested your imaging first. ? Electronically signed by: Rocael Villatoro MD, [facility] ([phone]), at 06/05/2021 1:27 PM Narrative 06/05/2021 1:27 [...] who have questions please contactthe health career discovery teacher that requested your imaging first. Electronically signed by: Rocael Villatoro MD, [facility]([phone]), at 06/05/2021 1:27 PM Deborah Quiroga APRN IMG MAMMO ORDERABLE S documented in this encounter Visit Diagnoses Not on filedocumented in this encounter Care Teams Rotor Plate Washer Relationship Specialty Start Date End Date Deborah Quiroga APRN PCP - General Family Medicine 03/24/16 02/04/23 documented as of this encounter
--- OUTSIDE RECORDS SUMMARY | 2024-03-23 14:02 | XMS_ITS | Encounter Summary ---
Author Organization [facility] Address [facility] [place] [address] Care Team Providers Care Antique Auto Museum Maintenance Worker Name Role Phone Junaid Deborah Shields APRN Primary Care Provider [phone] Encounter Details Date Type Department Care Team (Latest Contact Info) Description 06/22/2022 10:00 AM EST [place] [phone] Raymond Loredo MD [facility] [place] [address] Raynaud's phenomenon without gangrene; Positive FRANCISCO (antinuclear [...] can be done locally or here at [facility] that the current time is not particularly [...] for surgery by Dr. Rogers here at [facility]. In addition to painful dysesthesias in her [...] over radiocarpal or ulnocarpal joints. Hands: Normal eyelet maker and claw. SJC/TJC 0/0. Knees: Decreased flexion [...] 4:15 PM EDT Office Visit Dermatology at [place] [address] [facility] [place] [address] Marek Bonilla MD [address] [facility] [address] Katherine [place] [address] documented as of this encounter Visit Diagnoses Diagnosis Raynaud's phenomenon without gangrene Positive FRANCISCO (antinuclear antibody) Other and unspecified nonspecific immunological findings Primary osteoarthritis involving multiple joints Cervical disc disorder at C6-C7 level with radiculopathy documented in this encounter Care Teams [employer] Maintenance Worker Relationship Specialty Start Date End Date Deborah Quiroga APRN PCP - General Family Medicine 03/24/16 02/04/23 documented as of this encounter
--- OUTSIDE RECORDS SUMMARY | 2024-03-23 14:02 | XMS_ITS | Encounter Summary ---
[place] [address] Care Team Providers Care Software Manager Name Role Phone Magdalena Acosta MD Primary Care Provider [phone] Encounter Details Date Type Department Care Team [...] PM EDT Office Visit Dermatology at [address] [place] [address] Marek Bonilla MD [address] [facility] [place] [address] documented as of this encounter Visit Diagnoses Not on filedocumented in this encounter Care Teams Software Manager Relationship Specialty Start Date End Date Magdalena Acosta MD [address] [place] [address] PCP - General Family Medicine 02/05/23 documented as of this encounter
--- OUTSIDE RECORDS SUMMARY | 2024-03-23 14:02 | XMS_ITS | Encounter Summary ---
[place] [address] Care Team Providers Care Hardscape Foreman Name Role Phone Magdalena Acosta MD Primary Care Provider [phone] Encounter Details Date Type Department Care Team [...] PM EDT Office Visit Dermatology at [address] [place] [address] Marek Bonilla MD [address] [facility] [place] [address] documented as of this encounter Visit Diagnoses Not on filedocumented in this encounter Care Teams Hardscape Foreman Relationship Specialty Start Date End Date Magdalena Acosta MD [address] [place] [address] PCP - General Family Medicine 02/05/23 documented as of this encounter
--- OUTSIDE RECORDS SUMMARY | 2024-03-23 14:02 | XMS_ITS | Encounter Summary ---
[place] [address] Care Team Providers Care Combustion Engineer Name Role Phone Magdalena Acosta MD Primary Care Provider [phone] Encounter Details Date Type Department Care Team [...] PM EDT Office Visit Dermatology at [address] [place] [address] Marek Bonilla MD [address] [facility] [place] [address] documented as of this encounter Visit Diagnoses Not on filedocumented in this encounter Care Teams Combustion Engineer Relationship Specialty Start Date End Date Magdalena Acosta MD [address] [place] [address] PCP - General Family Medicine 02/05/23 documented as of this encounter
--- OUTSIDE RECORDS SUMMARY | 2024-03-23 14:02 | XMS_ITS | Encounter Summary ---
[place] [address] Care Team Providers Care Varitypist Name Role Phone Ashley Quirogazac Shields APRN Primary Care Provider [phone] Reason for Visit * Reason Comments Annual Exam Encounter Details Date Type Department Care Team (Late st Contact Info) Description 01/09/2022 3:15 PM EDT Office Visit Dermatology at [address] [address] Marek Bonilla MD [address] [facility] [address] A DERMATOLOGY [place], [place] [address] Rosacea Social History Tobacco Use Types Packs/Day [...] cutaneous and ocular 2. Previously told by analytics director that she had corneal tears from [...] refills. We will call this into her [facility] in [place] 3. Continue metronidazole 0.75% gel applying every other day after washing as needed. We will give her 45 g with 5 refills. 4. Return to clinic in a year for repeat check CC: Deborah Quiroga APRN documented in this encounter Plan of Treatment Upcoming Encounters Date Type Department Care Team (Late st Contact Info) Description 03/01/2025 4:15 PM EDT Office Visit Dermatology at [place] [address] [facility] [place] [address] Marek Bonilla MD [address] [facility] [place] [address] documented as of this encounter Visit Diagnoses Diagnosis Rosacea documented in this encounter Care Teams Varitypist Relationship Specialty Start Date End Date Deborah Quiroga APRN PCP - General Family Medicine 03/24/16 02/04/23 documented as of this encounter
--- OUTSIDE RECORDS SUMMARY | 2024-03-23 14:03 | XMS_ITS | Encounter Summary ---
Author Organization [facility] Address [facility] [place] [address] Care Team Providers Care Volunteer Recruiter Name Role Phone Deborah Quiroga APRN Primary Care Provider [phone] Encounter Details Date Type Department Care Team (Late st Contact Info) Description 06/18/2017 11:00 AM EST Office Visit Hematology [place] [address] Markel Borjas MD [facility] [address] [place] [address] Neutropenia, unspecified type Social History Tobacco Use [...] 06/18/2017 11:00 AM EST Hematology Outpatient [facility] [...] TOUCH PREP, CLOT SECTION, CORE ??BIOPSY); [OSR# [id number], COLLECTED 06/23/2016, 19 SLIDES]: ?1. ??Normocellular marrow [...] a clonal lymphoproliferative or myeloproliferative disorder (OSR# [id number]) Chromosome analysis on the marrow aspirate revealed [...] working the same job and participating in [employer]. Past Medical/Surgical History: 1. Leukopenia -element of neutropenia, as noted above 2. Aortic Stenosis -severe -AVR surgery 3. Hypercholesterolemia 4. Depression 5. Hypertension 6. 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 Extremities: No edema. Labs: Hgb= 13 Eepn=101 ANC= 0.6 Imaging As above - reviewed [...] EDT Office Visit Dermatology at [place] [address] [place] [address] Marek Bonilla MD [address] [facility] [place] [address] documented as of this encounter Visit Diagnoses Diagnosis Neutropenia, unspecified type documented in this encounter Care Teams Volunteer Recruiter Relationship Specialty Start Date End Date Deborah Quiroga APRN PCP - General Family Medicine 03/24/16 02/04/23 documented as of this encounter
--- OUTSIDE RECORDS SUMMARY | 2024-03-23 14:03 | XMS_ITS | Encounter Summary ---
[place] [address] Care Team Providers Care Accuracy Expert Name Role Phone Ashley Quirogan Cornelius ANURAG Primary Care Provider [phone] Reason for Visit * Reason Comments Acrochordon Rosacea Encounter Details Date Type Department Care Team (Late st Contact Info) Description 12/05/2020 3:00 PM EDT Office Visit Dermatology at [address] [address] aMrek Bonilla MD [address] [facility] [address] Inflamed acrochordon Social History Tobacco Use Types [...] 4:15 PM EDT Office Visit Dermatology at [place] [address] [place] [address] Marek Bonilla MD [address] [facility] [place] [address] documented as of this encounter Visit Diagnoses Diagnosis Inflamed acrochordon Unspecified hypertrophic and atrophic condition of skin documented in this encounter Care Teams Accuracy Expert Relationship Specialty Start Date End Date Deborah Quiroga APRN PCP - General Family Medicine 03/24/16 02/04/23 documented as of this encounter
--- OUTSIDE RECORDS SUMMARY | 2024-03-23 14:03 | XMS_ITS | Encounter Summary ---
[place] [address] Care Team Providers Care Scrap Sorter Name Role Phone Deborah Quiroga APRN Primary Care Provider [phone] Encounter Details Date Type Department Care Team (Late st Contact Info) Description 11/11/2020 Refill Dermatology at [address] [phone] Taylor Malone, RESTORATIVE ART EMBALMER Social History Tobacco Use Types Packs/Day Years [...] PM EDT Office Visit Dermatology at [address] [phone] Marek Bonilla MD [address] [facility], [place] [address] documented as of this encounter Visit Diagnoses Not on filedocumented in this encounter Care Teams Scrap Sorter Relationship Specialty Start Date End Date Deborah Quiroga APRN PCP - General Family Medicine 03/24/16 02/04/23 documented as of this encounter
--- OUTSIDE RECORDS SUMMARY | 2024-03-23 14:03 | XMS_ITS | Encounter Summary ---
[facility] [place] [address] Care Team Providers Care Vegetable Cook Name Role Phone Ashley Quirogan Sylvia ANURAG Primary Care Provider [phone] Encounter Details Date Type Department Care Team (Late st Contact Info) Description 12/04/2016 External Results Hematology [place] [address] Teresa Dodson, RN Social History Tobacco Use [...] 4:15 PM EDT Office Visit Dermatology at [place] [address] [facility] [place] [phone] Marek Bonilla MD [address] [facility] [facility] [address] [address], [place] [address] documented as of this encounter Procedures Procedure Name Priority Date/Time Associated Diagnosis Comments CBC (WITH DIFF) Routine 12/03/2016 11:35 AM EDT COMPREHENSIVE METABOLIC PANEL Routine 12/03/2016 11:35 AM EDT documented in this encounter Results * (ABNORMAL) Comprehensive metabolic panel (non-fasting) (12/03/2016 11:35 AM EDT) Glucose 85(Supervisor Treating And Pumping al Lab) Blood Urea Nitrogen 11(Supervisor Treating And Pumping al Lab) Creatinine 0.93(Exte rnal Lab) Sodium 140(Exter nal Lab) Potassium 4.2(Exter nal Lab) Chloride 104(Exter nal Lab) Calcium 10.0(Exte rnal Lab) Protein, Total 8.1(Exter nal Lab) Albumin 3.5(Exter nal Lab) Bilirubin, Total 0.25(Exte rnal Lab) Alkaline Phosphatase 96(Supervisor Treating And Pumping al Lab) Aspartate Aminotransferase 18(Supervisor Treating And Pumping al Lab) Alanine Aminotransferase 21(Supervisor Treating And Pumping al Lab) Blood specimen (specimen) 12/03/2016 11:35 AM EDT Historical Provider CHEMISTRY ORDERAB LES * (ABNORMAL) CBC (with Diff) (12/03/2016 11:35 AM EDT) White Blood Cell 1.61(EXTER NAL/ABN) 4.4 - 10.8 Hemoglobin 13.0(Exter nal Lab) Hematocrit 39.8(Exter nal Lab) Platelet 248(Supervisor Treating And Pumping al Lab) ANC 0.5(GEOSPATIAL SYSTEMS INTEGRATOR AL/ABN) Blood specimen (specimen) 12/03/2016 11:35 AM EDT Historical Provider HEMATOLOGY ORDERA BLES documented in this encounter Visit Diagnoses Not on filedocumented in this encounter Care Teams Vegetable Cook Relationship Specialty Start Date End Date Deborah Quiroga APRN PCP - General Family Medicine 03/24/16 02/04/23 documented as of this encounter
--- OUTSIDE RECORDS SUMMARY | 2024-03-23 14:03 | XMS_ITS | Encounter Summary ---
[place] [address] Care Team Providers Care Railroad Hand Name Role Phone Deborah Quiroga ANURAG Primary Care Provider [phone] Encounter Details Date Type Department Care Team (Late st Contact Info) Description 06/18/2017 External Results Hematology [place] [address] Alexandrea Greenwood RN Neutropenia, unspecified type Social [...] EDT Office Visit Dermatology at [place] [address] [place] [phone] Marek Bonilla MD [address] [address], [place] [address] documented as of this encounter Procedures Procedure [...] type documented in this encounter Care Teams Railroad Hand Relationship Specialty Start Date End Date Deborah Quiroga APRN PCP - General Family Medicine 03/24/16 02/04/23 documented as of this encounter
--- OUTSIDE RECORDS SUMMARY | 2024-03-23 14:03 | XMS_ITS | Encounter Summary ---
Author Organization [facility] Address [facility] [place] [address] Care Team Providers Care Manager Shipping Name Role Phone Deborah Quiroga APRN Primary Care Provider [phone] Encounter Details Date Type Department Care Team (Late st Contact Info) Description 02/06/2020 Orders Only Hematology [place] [address] Markel Borjas MD [facility] [address] HEMATOLOGY [place] [address] Neutropenia, unspecified type Social History Tobacco Use [...] 4:15 PM EDT Office Visit Dermatology at [place] [address] [place] [phone] Marek Bonilla MD [address], [place] [address] documented as of this encounter Visit Diagnoses Diagnosis Neutropenia, unspecified type documented in this encounter Care Teams Manager Shipping Relationship Specialty Start Date End Date Deborah Quiroga APRN PCP - General Family Medicine 03/24/16 02/04/23 documented as of this encounter
--- OUTSIDE RECORDS SUMMARY | 2024-03-23 14:03 | XMS_ITS | Encounter Summary ---
[place] [address] Care Team Providers Care Glove Presser Name Role Phone Junaid Deborah Shields APRN Primary Care Provider [phone] Reason for Visit * Reason Comments Follow-up Encounter Details Date Type Department Care Team (Late st Contact Info) Description 01/10/2021 4:30 PM EDT Office Visit Dermatology at [place] [address] [facility] [place] [phone] Marek Bonilla MD [address] [facility], [place] A DERMATOLOGY [place], [place] [phone] Rosacea Social History Tobacco Use Types Packs/Day [...] cutaneous and ocular 2. Previously told by sulfonation equipment operator that she had corneal tears from [...] 3 refills. Will call this in her [facility] pharmacy in [place] 3. Continue metronidazole 0.75% gel applying once [...] PM EDT Office Visit Dermatology at [address] [address] Marek Bonilla MD [address] [facility], [place] [address] documented as of this encounter Visit Diagnoses Diagnosis Rosacea documented in this encounter Care Teams Glove Presser Relationship Specialty Start Date End Date Deborah Quiroga APRN PCP - General Family Medicine 03/24/16 02/04/23 documented as of this encounter
--- OUTSIDE RECORDS SUMMARY | 2024-03-23 14:03 | XMS_ITS | Encounter Summary ---
[place] [address] Care Team Providers Care Imaging Engineer Name Role Phone Ashley Quirogan Cornelius ANURAG Primary Care Provider [phone] Reason for Visit * Reason Onset Date Comments Medical Care Coordination 07/27/2017 Encounter Details Date Type Department Care Team (Late st Contact Info) Description 07/27/2017 Telephone Hematology [place] [phone] Alexandrea Greenwood RN Medical Care Coordination Social [...] of commissioners: Injection/Infusion Referral Call placed to [facility] @ [phone] Spoke w/ FREELANCE ART DIRECTOR Services to be provided for pt are: CBC/CMP DONE Q6 MONTHS X2 STARTING NOVEMBER 2017 TECH confirmed they would provide services to pt - I CALLED PT, LM. Pt orders faxed to [phone] documented in this encounter Plan of Treatment Upcoming Encounters Date Type Department Care Team (Late st Contact Info) Description 03/01/2025 4:15 PM EDT Office Visit Dermatology at [place] [address] [place] [phone] Marek Bonilla MD [address], [place] [address] documented as of this encounter Visit Diagnoses Not on filedocumented in this encounter Care Teams Imaging Engineer Relationship Specialty Start Date End Date Deborah Quiroga APRN PCP - General Family Medicine 03/24/16 02/04/23 documented as of this encounter
--- OUTSIDE RECORDS SUMMARY | 2024-03-23 14:03 | XMS_ITS | Encounter Summary ---
[place] [address] Care Team Providers Care Invoice Control Clerk Name Role Phone Junaid, Deborah Shields APRN Primary Care Provider [phone] Encounter Details Date Type Department Care Team (Late st Contact Info) Description 10/20/2016 11:20 AM EDT Office [place] [phone] Alirio Esparza MD S/P AVR Social History [...] all of her postoperative tests done at [facility]. Her echo shows a well-seated valve. Her EF, for some reason, was read as in the 45% to 50% range. She had a normal EF to start. I think that will need to be repeated at [facility]. She has no perivalve leak. Her [...] should continue to see Dr. Burrell, her clin tech at [facility]. cc: Dr. Burrell documented in this encounter Plan of Treatment Upcoming Encounters Date Type Department Care Team (Late st Contact Info) Description 03/01/2025 4:15 PM EDT Office Visit Dermatology at [place] [address] [facility] [place] [phone] Marek Bonilla MD [address] [facility], [place] [address] documented as of this encounter Visit Diagnoses Diagnosis S/P AVR Heart valve replaced by other means documented in this encounter Care Teams Invoice Control Clerk Relationship Specialty Start Date End Date Deborah Quiroga APRN PCP - General Family Medicine 03/24/16 02/04/23 documented as of this encounter
--- OUTSIDE RECORDS SUMMARY | 2024-03-23 14:03 | XMS_ITS | Encounter Summary ---
[place] [address] Care Team Providers Care Explosive Expert Name Role Phone Deborah Quiroga APRN Primary Care Provider [phone] Encounter Details Date Type Department Care Team (Late st Contact Info) Description 07/21/2017 Orders Only H[place]ology [place] [address] Alexandrea Greenwood RN Other neutropenia Social History [...] 4:15 PM EDT Office Visit Dermatology at [place] [address] [place] [address] Marek Bonilla MD [address], [place] [address] documented as of this encounter Visit Diagnoses Diagnosis Other neutropenia documented in this encounter Care Teams Explosive Expert Relationship Specialty Start Date End Date Deborah Quiroga APRN PCP - General Family Medicine 03/24/16 02/04/23 documented as of this encounter
--- OUTSIDE RECORDS SUMMARY | 2024-03-23 14:03 | XMS_ITS | Encounter Summary ---
Author Organization [facility] Address [facility] [place] [address] Care Team Providers Care Mail List Processor Name Role Phone Junaid Deborah Shields APRN Primary Care Provider [phone] Reason for Visit * Reason Comments Schedule Office Case Pain right leg Encounter Details Date Type Department Care Team (Late st Contact Info) Description 12/11/2016 9:00 AM EDT Office Visit Hematology [place] [address] Markel Borjas MD [facility] [address] [place] [address] Neutropenia, unspecified type Social History Tobacco Use [...] 12/11/2016 9:00 AM EDT Hematology Outpatient Clinic [facility] Hematology Outpatient Consult Note CC: 60 [...] TOUCH PREP, CLOT SECTION, CORE ??BIOPSY); [OSR# [id number], COLLECTED 06/23/2016, 19 SLIDES]: ?1. 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 Extremities: No edema. Labs: Hgb= 13 Ubwg=948 ANC= 0.5 Imaging As above - reviewed [...] 4:15 PM EDT Office Visit Dermatology at [place] [address] [place] [address] Marek Bonilla MD [address] [facility], [place] [address] documented as of this encounter Results * (ABNORMAL) CBC (with Diff) (06/11/2017 1:19 PM EST) Pathologist [facility] White Blood Cell 2.28(EXTER NAL/ABN) 4.4 - [...] type documented in this encounter Care Teams Mail List Processor Relationship Specialty Start Date End Date Deborah Quiroga, SUPERVISOR FERTILIZER PROCESSING PCP - General Family Medicine 03/24/16 02/04/23 documented as of this encounter
--- OUTSIDE RECORDS SUMMARY | 2024-03-23 14:03 | XMS_ITS | Encounter Summary ---
[place] [address] Care Team Providers Care Unit Aid Name Role Phone Ashley Quirogan Cornelius ANURAG Primary Care Provider [phone] Reason for Visit * Reason Comments Skin Check Encounter Details Date Type Department Care Team (Late st Contact Info) Description 11/11/2020 10:45 AM EDT Office Visit Dermatology at [address] [place] [address] Marek Bonilla MD [address] [facility], [address] A DERMATOLOGY [place], [place] [address] Rosacea; Acrochordon Social History Tobacco Use Types [...] Discussed the possibility of getting this through [facility] or from the [facility] pharmacy if necessary. She has not yet [...] 4:15 PM EDT Office Visit Dermatology at [place] [address] [facility] [place] [address] Marek Bonilla MD [address] [facility], [place] [address] documented as of this encounter Visit Diagnoses Diagnosis Rosacea Acrochordon Unspecified hypertrophic and atrophic condition of skin documented in this encounter Care Teams Unit Aid Relationship Specialty Start Date End Date Deborah Quiroga APRN PCP - General Family Medicine 03/24/16 02/04/23 documented as of this encounter
--- OUTSIDE RECORDS SUMMARY | 2024-03-23 14:03 | XMS_ITS | Encounter Summary ---
Author Organization [facility] Address [facility] [place] [address] Care Team Providers Care Network Architect Name Role Phone Deborah Quiroga ANURAG Primary Care Provider [phone] Encounter Details Date Type Department Care Team (Late Contact Info) Description 02/07/2020 Telephone Hematology [place] [phone] Ellen Rios RN Social History Tobacco Use [...] 02/07/2020 12:59 PM EDT Message received from bilingual secretary: Injection/Infusion Referral Services to be provided for pt are: CBC only at [facility]- Pt will go by 02/27 Orders faxed to [phone]). Spoke with pt. She will call [facility] directly to schedule a time that works for her. documented in this encounter Plan of Treatment Upcoming Encounters Date Type Department Care Team (Late Contact Info) Description 03/01/2025 4:15 PM EDT Office Visit Dermatology at [address] [address] Marek Bonilla MD [address], [place] [address] documented as of this encounter Visit Diagnoses Not on filedocumented in this encounter Care Teams Network Architect Relationship Specialty Start Date End Date Deborah Quiroga APRN PCP - General Family Medicine 03/24/16 02/04/23 documented as of this encounter
--- OUTSIDE RECORDS SUMMARY | 2024-03-23 14:03 | XMS_ITS | Encounter Summary ---
[place] [address] Care Team Providers Care Commissions Analyst Name Role Phone Deborah Quiroga APRN Primary Care Provider [phone] Encounter Details Date Type Department Care Team (Late st Contact Info) Description 03/04/2020 External Results Hematology [place] [address] Theroux, Bhumi Cornelius Social History Tobacco Use [...] 4:15 PM EDT Office Visit Dermatology at [place] [address] [facility] [place] [address] Marek Bonilla MD [address] [address], [place] [address] documented as of this encounter Procedures Procedure [...] Provider CHEMISTRY ORDERAB LES Performing Organization Address City/[facility]/ZIP Co de Phone Number EXTERNAL LAB [...] Provider CHEMISTRY ORDERAB LES Performing Organization Address City/[facility]/ZIP Co de Phone Number EXTERNAL LAB [...] on filedocumented in this encounter Care Teams Commissions Analyst Relationship Specialty Start Date End Date Deborah Quiroga, MANUFACTURING ACCOUNTANT PCP - General Family Medicine 03/24/16 02/04/23 documented as of this encounter
--- OUTSIDE RECORDS SUMMARY | 2024-03-23 14:03 | XMS_ITS | Encounter Summary ---
Author Organization [facility] [place] [address] Care Team Providers Care Affiliate Marketing Manager Name Role Phone Ashley Quirogan Cornelius ANURAG Primary Care Provider [phone] Reason for Referral * Consultation (Routine) - Specialty Diagnoses / Procedures Referred By Contact Referred To Contact Cardiac Rehabilitation Diagnoses S/P AVR Alirio Esparza MD [facility] DR CARDIOTHORACIC [place] [address] Cardiac Rehab, [address] [place] [address] Referral ID Status Reason Start Date Expiration Date V isits Requested Visits Authorized [id number] Consult, Test & Treat 09/25/2016 03/24/2017 36 36 Reason for Visit * Auth/Cert Specialty Diagnoses / Procedures Referred By Contkrystle t Referred To Contact Diagnoses Aortic stenosis Procedures PRO REPLACE AORT VALV, PROSTH VALV @REPLACE AORTIC VALVE, OPEN, W\CPB, W\PROSTHETIC VALVE (WRVU 41.32) Referral ID Status Reason Start Date Expiration Date Visits Re quested Visits Authorized [id number] 1 1 Encounter Details Date Type Department Care Team (Latest Contact Info) Description 09/21/2016 6:08 AM EST - 09/25/2016 4:33 PM EST Hospital Encounter Inter[place] [id number] Alirio Esparza MD Aortic valve stenosis, unspecified [...] in 1-2 weeks. Patient to follow-up with Home Health Lpn, Dr. Antelmo Burrell, in two weeks. Patient to follow-up with Cardiac Surgery, Dr. Alirio Esparza, to be scheduled for before 10/19/2016, with CXR, EKG, and Echo. Inpatient Provider Contact Information: [facility] [place] of [place]iac [place] [facility] [place] [phone] FAX [phone] Discharge Diagnoses (Hospital Problems) Primary Diagnoses: Secondary [...] 41.32) performed by Alirio Esparza MD at [facility] MAIN OR ??? Pro aortoplas for supravalv sten N/A 09/21/2016 @AORTOPLASTY FOR SUPRAVALVULAR STENOSIS (WRVU 29.33) performed by Alirio Esparza MD at [facility] MAIN OR Prior To Admission Medications [...] Hospital Course: Purnima Thacker was admitted to [facility] on 09/21/2016 via the Same Day [...] Alirio Esparza and/or the Cardiac Surgery Physician Executive Casino Host Team may be reached at . Antibiotic prophylaxis: You will need to take antibiotics prior to many invasive tests and treatments, such as dental cleaning, which should be done every 6 months. Your primary care physician or your dentist can prescribe this medication. Please refer to the card with the [employer] Guidelines for more information. You have been provided with 3 copies of this card. Keep one for your self. Give one to your primary care physician and one to your dentist. Please refer to the [employer] Guidelines for more information. Good [...] Dr. Alirio Jones. You may use a [employer] Track or treadmill but avoid any [...] should resume a low fat, low cholesterol, [employer] Diet. Driving: No driving until [...] the outpatient Phase 2 Cardiac Rehabilitation at [facility]. The patient agrees to a referral to this program. The referral will be sent at discharge and the patient should be contacted by the program within 1- 2 weeks from discharge. Future Appointments and Orders Future Appointments Provider Department Dept Phone 11/20/2016 11:30 AM Markel Borjas MD [facility] [phone] Future Orders Complete By Expires Echocardiogram Transthoracic([place]) [[id number] Custom] 10/18/2016 (Approximate) 09/18/2017 Process Instructions: If the Echocardiogram is to be PERFORMED in a location other than [place]--STOP and order [id number], Echocardiogram South/External. Scheduling Instructions: Questions: Is a Bubble Study requested?: No Does the patient have Congenital Heart Disease?: No Does patient require sedation?: None GA rationale: Should this service be billed to the research sponsor?: EKG 12 Lead [EKG1 Custom] 10/18/2016 (Approximate) 09/25/2017 Process Instructions: Scheduling Instructions: Questions: Which location will this be performed?: [place] Is a rhythm strip needed?: No If EKG Reason is Pre-op Evaluation, indicate diagnosis for surgery.: Should this service be billed to the research sponsor?: XR Chest PA & Lateral (Generic) [[id number] Custom] 10/18/2016 (Approximate) 09/25/2017 Process Instructions: Scheduling Instructions: Questions: Where will study be performed?: [facility]- Radiology Portable exam?: No Reason for exam and clinical history: s/p AVReplacement, patch annuloplasty 1 month f/u Other pertinent information: Stat read required?: Date of injury if applicable: Requested Time: Referral to Cardiac Rehab [ZVJ088 Custom] As directed Process Instructions: If no progress note charted, please enter Clinical details in comments. Scheduling Instructions: Questions: My question or request is: s/p AVR. Cardiac rehab at [facility] Referral to Home Health - at DISCHARGE [DRG4218 CPT(R)] As directed Process Instructions: Scheduling Instructions: Comments: DOCUMENTATION FOR VNA SERVICES (INCLUDING THOSE PATIENTS WITH MEDICARE COVERAGE REQUIRING HOME VNA SERVICES AND/OR HOSPICE SERVICES) PATIENT'S LOCATION: Purnima Magalie Kirstie [address] [place] [phone] (home) No relevant phone numbers on file. Photogrammetric Technician's Name: self In discussion with the attending physician, it is certified that this patient is under their care and that they, or a Nurse Practitioner, or Physician Executive Casino Host who is working directly with them, hada [...] for services as follows: HOME HEALTH AGENCY: [facility] PHONE: [phone] FAX: [phone] RN orders: Cardiopulmonary assessment, incisional assessment, assess [...] issues please call the Cardiac SurgeryOffice at [phone] FOR MEDICARE ONLY: In discussion with the [...] Agency name and contact information: [facility] Patient location post discharge: home What services are requested: Registered Nurse Physical Therapy Occupational Therapy Start date: Responsible MD post discharge contact info: Arrangements for VNA/home care: As above. VN RN OR PCP TO PLEASE REMOVE CHEST TUBE SUTURES ON OR AFTER 09/30/16 Signed: Crispin Aranda PA-C 09/25/2016 [facility] Section of Cardiac Surgery [facility] [place] [phone] FAX [phone] Date: 09/25/2016 CC: ANURAG Alford Caryn E, APRN [address] [place] [address] documented in this encounter Discharge Instructions * [...] Alirio Esparza and/or the Cardiac Surgery Physician Executive Casino Host Team may be reached at . Antibiotic prophylaxis: You will need to take antibiotics prior to many invasive tests and treatments, such as dental cleaning, which should be done every 6 months. Your primary care physician or your dentist can prescribe this medication. Please refer to the card with the [employer] Guidelines for more information. You have been provided with 3 copies of this card. Keep one for your self. Give one to your primary care physician and one to your dentist. Please refer to the [employer] Guidelines for more information. Good [...] Dr. Alirio Jones. You may use a [employer] Track or treadmill but avoid any [...] should resume a low fat, low cholesterol, [employer] Diet. Driving: No driving until [...] the outpatient Phase 2 Cardiac Rehabilitation at [facility]. The patient agrees to a referral [...] PM EST Cardiac Surgery Progress Note: ID: [id number] S/p AVR, patch aortoplasty POD#2. PMH of [...] Gas) No results found for: PHART, PO2ART, AVL0SQO Assessment/Plan: TPW out this am. (+) BM. [...] Signed: Crispin Aranda PA-C 09/24/2016 Team pager: [phone] after 5pm [facility] Section of Cardiac Surgery * Leonor Henson, OFFICE MACHINE INSTALLER - 09/23/2016 10:48 AM EST Cardiac Surgery Progress Note: ID: [id number] s/p AVR, patch aortoplasty POD#2. PMH of [...] Gas) No results found for: PHART, PO2ART, YNF8KQS Assessment/Plan: s/p AVR, patch aortoplasty POD#2. PMH of Neutropenia, HLD, HTN, Depression, obesity, . Transferred from [facility] yesterday and doing well. Pathway. Will [...] DW Attending Surgeon on rounds. Signed: Leonor Henosn APRN [facility] Section of Cardiac Surgery Date: 09/23/2016 * Nioc Palacios PA - 09/22/2016 9:56 AM EST Cardiac Surgery Progress Note: ID: [id number] s/p AVR, patch aortoplasty POD#1. PMH of [...] NT, ND, soft. Ext: Moves all extremities. [place], well perfused. Incisions: C/D/I Tubes/Lines/Drains: PIV, leanna, [...] Attending Surgeon on rounds. Signed: EKATERINA KIM [facility] Section of Cardiac Surgery Date: 09/22/2016 [...] with outpatient services Lalitha Cohen SPTA Pager: [phone] Inpatient Physical Therapy Patient status, treatment interventions, and goals discussed with student. I am in agreement with all details and associated flowsheet rows as documented and was present for all aspects of the patient treatment session. Nerykatrina Jaramillo, [facility] Pager [phone] Problem: Acute Rehab Services Goal & Intervention Plan Goal: Bed Mobility Goal Stand Alone Therapy Goal Outcome: Ongoing (Interventions Implemented as Appropriate) 09/22/16 16109/25/16 09 Bed Mobility Goal Bed Mobility Goal, Time to Achieve 4 days -- Bed Mobility Goal, Activity Type scoot/bridge;supine to sit/sit to supine -- Bed Mobility Goal, Bracken Level independent -- Bed Mobility Goal, Additional [...] Achieve 4 days -- Gait Training Goal, Bracken Level independent -- Gait Training Goal, Distance [...] monitoring required during toileting and ADLs]: Call odherty Surveillance [continuous indirect monitoring]: Hourly rounds Patient-specific [...] assist, home with home health Lalitha Cohen [facility] Pager: [phone] Inpatient Physical Therapy Patient status, treatment interventions, and goals discussed with student. I am in agreement with all details and associated flowsheet rows as documented and was present for all aspects of the patient treatment session. Nery Jaramillo, [facility] Pager [phone] Problem: Acute Rehab Services Goal & Intervention Plan Goal: Bed Mobility Goal Stand Alone Therapy Goal Outcome: Ongoing (Interventions Implemented as Appropriate) 09/22/16 16109/23/16 1412 Bed Mobility Goal Bed Mobility Goal, Time to Achieve 4 days -- Bed Mobility Goal, Activity Type scoot/bridge;supine to sit/sit to supine -- Bed Mobility Goal, Bracken Level independent -- Bed Mobility Goal, Additional [...] Achieve 4 days -- Gait Training Goal, Bracken Level independent -- Gait Training Goal, Distance [...] days -- Transfer Training Goal, Activity Type gks-wc-kaqgh/vsyvb-iz-bts;ugq-fh-olucn/icybj-ef-ftf -- Transfer Train Goal, Bracken Level independent -- Transfer Training Goal, Additional Goal abides sternal precautions -- Transfer Training Goal, Outcome -- goal met * Consult Note - Jana Crenshaw RN - 09/23/2016 9:41 AM EST [facility] [place] CARDIAC REHABILITATION Purnima Thacker was seen today regarding participation in the outpatient Phase 2 Cardiac Rehabilitation at [facility]. The patient agrees to a referral [...] Another Service: (cardiac rehab) NICOLE HERNANDEZ, PT Pager:[phone] Inpatient Physical Therapy Problem: Acute Rehab Services Goal & Intervention Plan Goal: Bed Mobility Goal Stand Alone Therapy Goal Outcome: Ongoing (Interventions Implemented as Appropriate) 09/22/16 1611 Bed Mobility Goal Bed Mobility Goal, Time to Achieve 4 days Bed Mobility Goal, Activity Type scoot/bridge;supine to sit/sit to supine Bed Mobility Goal, Bracken Level independent Bed Mobility Goal, Additional Goal able to abide sternal precautions during transfers Goal: Gait Training Goal Stand Alone Therapy Goal Outcome: Ongoing (Interventions Implemented as Appropriate) 09/22/16 1611 Gait Training Goal Gait Training Goal, Date Established 09/22/16 Gait Training Goal, Time to Achieve 4 days Gait Training Goal, Bracken Level independent Gait Training Goal, Distance to Achieve ascend and descends 2 steps independently Goal: Goal Transfer Training Stand Alone Therapy Goal Outcome: Ongoing (Interventions Implemented as Appropriate) 09/22/16 1611 Goal Transfer Training Transfer Training Goal, Time to Achieve 4 days Transfer Training Goal, Activity Type ojy-zo-mqjkg/ulnzx-mw-fqn;wdi-hz-zqohn/zhsnx-xg-yjb Transfer Train Goal, Bracken Level independent Transfer Training Goal, Additional Goal [...] of completing AD's at home, chooses her engpjq-is-ann, Martha Thacker (home) for her [facility], 2nd choice in friend, Nitesh Leroy [place], [place] Current Coping/Education/Information Needs: patient sitting up [...] who live close by, [place], and her qacfhx-kw-mbj Martha Thacker who she has chosen to be her DPOAH. Also has a friend Nitesh Leroy who lives in [place], [place], also her DPOAH choice. Behavioral Health History: none on file in [facility] Substance Use/Abuse: none on file in [facility] Other Pertinent/Service Specific Information: none Health/Prescription Coverage: Primary Insurance: [employer] Secondary Insurance: none Prescription Coverage: yes, per patient no issues Preferred Pharmacy: ?? Other: none Primary Care Provider: Deborah Quiroga, OFFICE MACHINE INSTALLER [phone] Patient/Caregiver Goals of Treatment: per medical team [...] referrals are placed. Patient requests referral to: [facility]. PHONE: [phone] FAX: [phone] Expected date of discharge: Fri/Sat? CM called [facility]NA to confirm referral, talked with VALDO Bunn/intake who stated she was familiar w/patient & would monitor her progress through curaspan. Referral routed to the Finishing Inspector for matching with agency/vendor and to provide any required information. A member of the Care Management team will continue to monitor progress, follow for continuity of care and assist with transition of care planning. Amanda Moreno RN Pager: [phone] * Op Note - Alirio Esparza MD - 09/21/2016 12:53 PM EST 09/23/2016 Purnima Thacker [id number] Preoperative Diagnosis: Symptomatic aortic stenosis Postoperative Diagnosis: Symptomatic aortic stenosis Procedure: Aortic valve replacement: Bovine Pericardial 25 mm Surgeon: Alirio Esparza M.D. Executive Casino Host: Philip BALL Anesthesia: General endotracheal anesthesia Drains: [...] Operative Note Patient Name: Purnima Thacker : [id number] MR#: [id number] Case Date: 09/21/2016 Surgeon: Surgeon(s) and Role: * Alirio Esparza MD - Primary * Nico Palacios PA - Physician Executive Casino Host Preoperative diagnosis: Postoperative diagnosis: Procedure(s) (LRB): @REPLACE [...] PM EDT Office Visit Dermatology at [place] [address] [place] [address] Marek Bonilla MD [address], [place] [address] Scheduled Orders Name Type Priority Associated Diagnoses [...] IMPLANTABLE DEVICES SCAN 09/26/2016 12:00 AM EST CONDENSER WINDER SCAN 09/26/2016 12:00 AM EST POTASSIUM Routine [...] SCAN EXT O RDR/RSLT * SCAN DOC: CONDENSER WINDER (09/26/2016 12:00 AM EST) Anatomical Region Laterality Modality Other Narrative 09/26/2016 12:00 AM EST Ordered by an unspecified provider. Scanning Provider MEDIA MGR SCAN EXT O RDR/RSLT * Potassium (09/25/2016 4:32 AM EST) Pathologist [facility] Potassium 4.4 3.5 - 5.0 mmol/L [facility] [...] CHEMISTRY ORDERABLE S [facility] [place] [address] * (ABNORMAL) Differential, Automated (09/24/2016 9:56 AM EST) [facility] Neutrophil % 76.8 % [facility] Neutrophil Absolute 7.79(H) 1.70 - 6.10 x10(3)/mc L [facility] Lymph % 11.1 % [facility] Lymphocytes Abs 1.1 0.9 - 3.2 x10(3)/mc L [facility] Monocyte % 8.5 % [facility] Monocyte Abs 0.9 0.3 - 0.9 x10(3)/mc L [facility] Eos % 0.5 % [facility] Eosinophils Abs 0.0 0.0 - 0.4 x10(3)/mc L [facility] Basophil % 0.2 % [facility] Baso Absolute 0.0 0.0 - 0.1 x10(3)/mc L [facility] Immature Gran % 2.90 % [facility] Comment: Immature granulocytes(IG's)percentage and absolute count will include metamyelocytes, myelocytes, and promyelocytes. Blood smears from CBCs yielding IG's will be scanned manually for concordance. If this scan disagrees with the automated IG or if promyelocytes are noted, a manual differential will be performed. Immature Gran Absolute 0.29(H) 0.00 - 0.04 x10(3)/mc L [facility] Blood specimen (specimen) 09/24/2016 9:56 AM EST 09/24/2016 10:04 AM EST Narrative Resulting Agency Comment Spec In Lab Alirio Esparza MD HEMATOLOGY ORDERABL ES [facility] [place] [address] * (ABNORMAL) Hemogram (09/24/2016 9:56 AM EST) White Blood Cell 10.1(H) 4.0 - 9.5 x10(3)/mc L [facility] Red Blood Cell 2.87(L) 4.00 - 5.21 x10(6)/mc L [facility] Hemoglobin 9.4(L) 11.7 - 15.5 gm/dL [facility] Hematocrit 28.3(L) 35.7 - 45.8 % [facility] Mean Cell Volume 98.6(H) 82.6 - 94.4 fL [facility] Mean Cell Hemoglobin 32.8(H) 27.1 - 32.0 pg [facility] Mean Cell Hemoglobin Concentration 33.2 31.7 - 35.0 gm/dL [facility] Platelet 141(L) 145 - 357 x10(3)/mc L [facility] RDW Standard Deviation 45.0 37.0 - 46.0 fL [facility] RDW coefficient of variation 12.6 11.5 - 14.1 % [facility] Mean Platelet Volume 9.4 7.6 - 12.9 fL [facility] NRBC% auto 1.1 % [facility] NRBC Absolute 0.110(H) 0.000 - 0.000 x10(3)/mc L [facility] Blood specimen (specimen) 09/24/2016 9:56 AM EST 09/24/2016 10:04 AM EST Narrative Resulting Agency Comment Spec In Lab Alirio Esparza MD HEMATOLOGY ORDERABL ES [facility] [place] [address] * (ABNORMAL) Basic Metabolic Panel (non-fasting) (09/24/2016 9:56 AM EST) Glucose 111 65 - 199 mg/dL [facility] Comment:Diabetes: >=200 mg/d L plus symptoms Blood Urea Nitrogen 23(H) 8 - 18 mg/dL [facility] Comment:result rechecked-ART Creatinine 0.89 0.70 - 1.20 mg/dL [facility] Comment: Please note that the pediatric reference intervals supplied above were not validated at [facility]. Results from pediatric patients should be interpreted in conjunction to the patient's age, height and muscle mass. Sodium 138 135 - 145 mmol/L [facility] Potassium 4.2 3.5 - 5.0 mmol/L [facility] Comment: Please note: ??Patients with WBC >100,000 may have falsely elevated Potassium levels. ??For accurate Potassium quantification in these patients send serum separator tube (gold top) for subsequent determinations. ??Contact the Clinical Chemistry Laboratory if there are any questions. Chloride 98 98 - 107 mmol/L [facility] Carbon Dioxide 26 22 - 31 mmol/L [facility] Anion Gap 14 5 - 15 mmol/L [facility] Calcium 9.1 8.5 - 10.5 mg/dL [facility] [...] the following links into your internet browser. [email or web address] Blood specimen (specimen) 09/24/2016 9:56 AM EST 09/24/2016 10:04 AM EST Narrative Resulting Agency Comment Spec In Lab Alirio Esparza MD CHEMISTRY ORDERABLE S [facility] [place] [address] * XR Chest PA & Lateral (Generic) [...] EST) Potassium 4.5 3.5 - 5.0 mmol/L [facility] [...] MD CHEMISTRY ORDERABLE S Performing Organization Address [facility] Co de Phone Number [facility] [place] [address] * POCT Glucose (09/22/2016 8:17 AM EST) Glucose, POC 131 65 - 199 mg/dL [facility] Comment: Supplemental ranges: <140 mg/dL before meals <180 mg/dL all other times of the day Blood specimen (specimen) 09/22/2016 8:17 AM EST 09/22/2016 8:17 AM EST Alirio Esparza MD POINT OF CARE TEST ORDERABLES Performing Organization Address City/[facility]/ZIP Co de Phone Number [facility] [place] [address] * POCT Glucose (09/22/2016 4:01 AM EST) Glucose, POC 135 65 - 199 mg/dL [facility] Comment: Supplemental ranges: <140 mg/dL before meals <180 mg/dL all other times of the day Blood specimen (specimen) 09/22/2016 4:01 AM EST 09/22/2016 4:01 AM EST Alirio Esparza MD POINT OF CARE TEST ORDERABLES [facility] [place] [address] * Scan, Peripheral Blood (09/22/2016 4:00 AM EST) Plat estimate Normal [facility] RBC Morphology Abnormal [facility] Macrocyte 1-5 /HPF [facility] Plat, Giant Less than 1 /HPF [facility] Blood specimen (specimen) 09/22/2016 4:00 AM EST 09/22/2016 4:34 AM EST Narrative Resulting Agency Comment Spec In Lab Alirio Esparza MD HEMATOLOGY ORDERABL ES Performing Organization Address [facility] Co de Phone Number [facility] [place] [address] * Electrolytes panel (09/22/2016 4:00 AM EST) Pathologist [facility] Sodium 145 135 - 145 mmol/L [facility] Potassium 4.4 3.5 - 5.0 mmol/L [facility] Comment: Please note: ??Patients with WBC >100,000 may have falsely elevated Potassium levels. ??For accurate Potassium quantification in these patients send serum separator tube (gold top) for subsequent determinations. ??Contact the Clinical Chemistry Laboratory if there are any questions. Chloride 107 98 - 107 mmol/L [facility] Carbon Dioxide 24 22 - 31 mmol/L [facility] Anion Gap 14 5 - 15 mmol/L [facility] Blood specimen (specimen) Venous Draw / Unknown 09/22/2016 4:00 AM EST 09/22/2016 4:34 AM EST Narrative Resulting Agency Comment Spec In Lab Alirio Esparza MD CHEMISTRY ORDERABLE S Performing Organization Address [facility] Co de Phone Number [facility] [place] [address] * (ABNORMAL) Differential, Automated (09/22/2016 4:00 AM EST) Pathologist [facility] Neutrophil % 70.9 % [facility] Neutrophil Absolute 5.33 1.70 - 6.10 x10(3)/[facility] Lymph % 9.1 % [facility] Lymphocytes Abs 0.7(L) 0.9 - 3.2 x10(3)/[facility] Monocyte % 18.0 % [facility] Monocyte Abs 1.4(H) 0.3 - 0.9 x10(3)/[facility] Eos % 0.0 % [facility] Eosinophils Abs 0.0 0.0 - 0.4 x10(3)/[facility] Basophil % 0.1 % [facility] Baso Absolute 0.0 0.0 - 0.1 x10(3)/[facility] Immature Gran % 1.90 % [facility] Comment: Immature granulocytes(IG's)percentage and absolute count will include metamyelocytes, myelocytes, and promyelocytes. Blood smears from CBCs yielding IG's will be scanned manually for concordance. If this scan disagrees with the automated IG or if promyelocytes are noted, a manual differential will be performed. Immature Gran Absolute 0.14(H) 0.00 - 0.04 x10(3)/[facility] LABORATORY Blood specimen (specimen) 09/22/2016 4:00 AM EST 09/22/2016 4:34 AM EST Narrative Resulting Agency Comment Spec In Lab Alirio Esparza MD HEMATOLOGY ORDERABL ES [facility] [place] [address] * (ABNORMAL) Hemogram (09/22/2016 4:00 AM EST) White Blood Cell 7.5 4.0 - 9.5 x10(3)/[facility] LABORATORY Red Blood Cell 2.93(L) 4.00 - 5.21 x10(6)/[facility] LABORATORY Hemoglobin 9.2(L) 11.7 - 15.5 gm/dL [facility] Hematocrit 28.0(L) 35.7 - 45.8 % [facility] Mean Cell Volume 95.6(H) 82.6 - 94.4 fL [facility] Mean Cell Hemoglobin 31.4 27.1 - 32.0 pg [facility] Mean Cell Hemoglobin Concentration 32.9 31.7 - 35.0 gm/dL [facility] Platelet 161 145 - 357 x10(3)/mc L [facility] RDW Standard Deviation 44.0 37.0 - 46.0 fL [facility] RDW coefficient of variation 12.6 11.5 - 14.1 % [facility] Mean Platelet Volume 9.3 7.6 - 12.9 fL [facility] NRBC% auto 0.3 % [facility] LABORATORY NRBC Absolute 0.020(H) 0.000 - 0.000 x10(3)/mc L [facility] Blood specimen (specimen) 09/22/2016 4:00 AM EST 09/22/2016 4:34 AM EST Narrative Resulting Agency Comment Spec In Lab Alirio Esparza MD HEMATOLOGY ORDERABL ES [facility] [place] [address] * (ABNORMAL) Cardiac Enzymes (09/22/2016 4:00 AM EST) Troponin-T 0.13(H) <=0.03 ng/mL [facility] Comment: 0.03 ng/mL: Represents the 99th percentile upper reference limit for normals. >0.03 ng/mL: Elevated cardiac troponin T level indicative of myocardial damage. Diagnosis of acute, evolving or recent GA requires a typical rise and gradual fall [...] consensus document of the Joint Society of Cardiology/[employer] Committee for the redefinition of myocardial infarction. ??Journal of the [employer] College [employer] 2000; 36: 959-969] Creatine Kinase 338(H) 0 - 160 unit/L [facility] Blood specimen (specimen) 09/22/2016 4:00 AM EST 09/22/2016 4:34 AM EST Narrative Resulting Agency Comment Spec In Lab Alirio Esparza MD CHEMISTRY ORDERABLE S Performing Organization Address City/State/[facility] Co de Phone Number [facility] [place] [address] * (ABNORMAL) Glucose, fasting (09/22/2016 4:00 AM EST) Glucose Fasting 137(H) 65 - 99 mg/dL [facility] Comment: ?Fasting* Glucose Interpretive [...] of Diabetes Mellitus, Position Statement from the [place] [employer]. ??Diabetes Care, Volume 33, Supplement 1, Aug 2009 Blood specimen (specimen) 09/22/2016 4:00 AM EST 09/22/2016 4:34 AM EST Narrative Resulting Agency Comment Spec In Lab Alirio Esparza MD CHEMISTRY ORDERABLE S Performing Organization Address City/[facility]/ZIP Co de Phone Number [facility] [place] [address] * (ABNORMAL) Creatinine (09/22/2016 4:00 AM EST) Creatinine 0.69(L) 0.70 - 1.20 mg/dL [facility] Comment: Please note that the pediatric reference intervals supplied above were not validated at [facility] [place]. Results from pediatric patients [...] the following links into your internet browser. [email or web address] Blood specimen (specimen) 09/22/2016 4:00 AM EST 09/22/2016 4:34 AM EST Narrative Resulting Agency Comment Spec In Lab Alirio Esparza MD CHEMISTRY ORDERABLE S Performing Organization Address [facility]/ZIP Co de Phone Number [facility] [place] [address] * BUN (09/22/2016 4:00 AM EST) Blood Urea Nitrogen 10 8 - 18 mg/dL [facility] Blood specimen (specimen) 09/22/2016 4:00 AM EST 09/22/2016 4:34 AM EST Narrative Resulting Agency Comment Spec In Lab Alirio Esparza MD CHEMISTRY ORDERABLE S Performing Organization Address City/[facility]/ZIP Co de Phone Number [facility] [place] [address] * POCT Glucose (09/21/2016 9:59 PM EST) Glucose, POC 146 65 - 199 mg/dL [facility] Comment: Supplemental ranges: <140 mg/dL before meals <180 mg/dL all other times of the day Blood specimen (specimen) 09/21/2016 9:59 PM EST 09/21/2016 9:59 PM EST Alirio Esparza MD POINT OF CARE TEST ORDERABLES [facility] [place] [address] * POCT Glucose (09/21/2016 7:26 PM EST) Glucose, POC 152 65 - 199 mg/dL [facility] Comment: Supplemental ranges: <140 mg/dL before meals <180 mg/dL all other times of the day Blood specimen (specimen) 09/21/2016 7:26 PM EST 09/21/2016 7:26 PM EST Alirio Esparza MD POINT OF CARE TEST ORDERABLES [facility] [place] [address] * POCT Glucose (09/21/2016 6:00 PM EST) Glucose, POC 146 65 - 199 mg/dL [facility] Comment: Supplemental ranges: <140 mg/dL before meals <180 mg/dL all other times of the day Blood specimen (specimen) 09/21/2016 6:00 PM EST 09/21/2016 6:00 PM EST Alirio Esparza MD POINT OF CARE TEST ORDERABLES [facility] [place] [address] * (ABNORMAL) BLOOD GAS 2 ARTERIAL (09/21/2016 4:42 PM EST) pH, Arterial 7.35(L) 7.35 - 7.45 [facility] PCO2, Arterial 48(H) 35 - 45 mmHg [facility] PO2, Arterial 108(H) 85 - 104 mmHg [facility] Bicarbonate, Arterial 26.0 20.0 - 26.0 mmol/L [facility] [place] Excess, Arterial 0.5 -3.0 - 3.0 mmol/L [facility] Hgb Blood Gas 10.4(L) 11.7 - 15.5 gm/dL [facility] Oxyhemoglobin, Arterial 96.2 94.0 - 97.0 % [facility] [place] Carboxyhemoglob in, Arterial 0.0 % [facility] Comment: Nonsmokers: 0.5-1.5% COHB Smokers: Variable, but usually less than 10% Toxic: 20-30% COHB Lethal: Greater than 60% COHB Methemoglobin, Arterial 0.7 <=1.5 % [facility] Na Whole Blood 139 135 - 145 mmol/L [facility] K Whole Blood 4.2 3.5 - 5.0 mmol/L [facility] Comment: Please note: Patients with WBC >100,000 may have falsely elevated Potassium levels. Contact the Clinical Chemistry Laboratory if there are any questions. ICa Whole Blood 1.13(L) 1.15 - 1.33 mmol/L [facility] Comment: Note: ??Total bilirubin higher than 20 mg/dL may lead to falsely low ionized calcium. CL Whole Blood 106 98 - 107 mmol/L [facility] Gluc Whole Bld 147 65 - 199 mg/dL [facility] Comment:Diabetes: >=200 mg/d L plus symptoms. Lactate WB 1.2 0.5 - 2.2 mmol/L [facility] FIO2 Art 40 % [facility] LABORATORY PF Ratio Art 270 [facility] LABORATORY Blood specimen (specimen) 09/21/2016 4:42 PM EST 09/21/2016 4:42 PM EST Alirio Esparza MD POINT OF CARE TEST ORDERABLES Performing Organization Address [facility] Co de Phone Number [facility] [place] [address] * POCT Glucose (09/21/2016 4:07 PM EST) Glucose, POC 150 65 - 199 mg/dL [facility] Comment: Supplemental ranges: <140 mg/dL before meals <180 mg/dL all other times of the day Blood specimen (specimen) 09/21/2016 4:07 PM EST 09/21/2016 4:07 PM EST Alirio Esparza MD POINT OF CARE TEST ORDERABLES Performing Organization Address [facility] Co de Phone Number [facility] [place] [address] * (ABNORMAL) Hemoglobin (09/21/2016 4:05 PM EST) Hemoglobin 9.9(L) 11.7 - 15.5 gm/dL [facility] Blood specimen (specimen) 09/21/2016 4:05 PM EST 09/21/2016 4:20 PM EST Narrative Resulting Agency Comment Spec In Lab Alirio Esparza MD HEMATOLOGY ORDERABL ES Performing Organization Address [facility] Co de Phone Number [facility] [place] [address] * Potassium (09/21/2016 4:05 PM EST) Potassium 4.6 3.5 - 5.0 mmol/L [facility] [...] MD CHEMISTRY ORDERABLE S Performing Organization Address [facility] Co de Phone Number [facility] [place] [address] * POCT Glucose (09/21/2016 2:52 PM EST) Glucose, POC 117 65 - 199 mg/dL [facility] Comment: Supplemental ranges: <140 mg/dL before meals <180 mg/dL all other times of the day Blood specimen (specimen) 09/21/2016 2:52 PM EST 09/21/2016 2:52 PM EST Alirio Esparza MD POINT OF CARE TEST ORDERABLES Performing Organization Address [facility] Phone Number [facility] [place] [address] * POCT Glucose (09/21/2016 1:51 PM EST) Glucose, POC 108 65 - 199 mg/dL [facility] Comment: Supplemental ranges: <140 mg/dL before meals <180 mg/dL all other times of the day Blood specimen (specimen) 09/21/2016 1:51 PM EST 09/21/2016 1:51 PM EST Alirio Esparza MD POINT OF CARE TEST ORDERABLES Performing Organization Address [facility] Co de Phone Number [facility] [place] [address] * POCT Glucose (09/21/2016 12:54 PM EST) Glucose, POC 128 65 - 199 mg/dL [facility] Comment: Supplemental ranges: <140 mg/dL before meals <180 mg/dL all other times of the day Blood specimen (specimen) 09/21/2016 12:54 PM EST 09/21/2016 12:54 PM EST Alirio Esparza MD POINT OF CARE TEST ORDERABLES Performing Organization Address City/[facility]/ZIP Co de Phone Number [facility] [place] [address] * EKG 12 Lead (09/21/2016 12:26 PM EST) Ventricular rate 87 BPM MUSE SYSTEM Atrial Rate 87 BPM MUSE SYSTEM P-R Interval 256 ms MUSE SYSTEM QRS Duration 90 ms MUSE SYSTEM Q-T Interval 406 ms MUSE SYSTEM QTC Calculated (Bezet) 488 ms MUSE SYSTEM Calculated P [place] 24 degrees MUSE SYSTEM Calculated R [place] 21 degrees MUSE SYSTEM Calculated T [place] -5 degrees MUSE SYSTEM INTERPRETATION Sinus rhythm with 1st degree A-V block Nonspecific T wave abnormality Prolonged QT Abnormal ECG When compared with ECG of 19-MAY-2016 11:43, MD interval has increased T wave inversion now evident in inferior and midanterior leads Confirmed by MD ESTES EDWARD ([id number]) on 09/21/2016 1:40:59 PM MUSE SYSTEM 09/21/2016 12:2 6 PM EST 09/21/2016 1:40 PM EST Alirio Esparza MD ECG ORDERABLES Performing Organization Address [facility] Co de Phone Number MUSE SYSTEM [...] course of the esophagus and below the [id number]. There is a right IJ PA catheter [...] the course of theesophagus and below the [id number]. There is a right IJ PA catheter [...] EST) pH, Arterial 7.41 7.35 - 7.45 [facility] PCO2, Arterial 42 35 - 45 mmHg [facility] PO2, Arterial 356(H) 85 - 104 mmHg [facility] Bicarbonate, Arterial 26.2(H) 20.0 - 26.0 mmol/L [facility] Base Excess, Arterial 1.6 -3.0 - 3.0 mmol/L [facility] Hgb Blood Gas 10.7(L) 11.7 - 15.5 gm/dL [facility] Oxyhemoglobin, Arterial 98.1(H) 94.0 - 97.0 % [facility] Carboxyhemoglob in, Arterial 0.3 % [facility] Comment: Nonsmokers: 0.5-1.5% COHB Smokers: Variable, but usually less than 10% Toxic: 20-30% COHB Lethal: Greater than 60% COHB Methemoglobin, Arterial 0.8 <=1.5 % [facility] Na Whole Blood 140 135 - 145 mmol/L [facility] K Whole Blood 3.8 3.5 - 5.0 mmol/L [facility] Comment: Please note: Patients with WBC >100,000 may have falsely elevated Potassium levels. Contact the Clinical Chemistry Laboratory if there are any questions. ICa Whole Blood 1.15(L) 1.15 - 1.33 mmol/L [facility] Comment: Note: ??Total bilirubin higher than 20 mg/dL may lead to falsely low ionized calcium. CL Whole Blood 106 98 - 107 mmol/L [facility] Gluc Whole Bld 135 65 - 199 mg/dL [facility] Comment:Diabetes: >=200 mg/d L plus symptoms. Lactate WB 2.2 0.5 - 2.2 mmol/L [facility] FIO2 Art 100 % [facility] PF Ratio Art 356 [facility] Blood specimen (specimen) 09/21/2016 12:20 PM EST 09/21/2016 12:20 PM EST Alirio Esparza MD POINT OF CARE TEST ORDERABLES Performing Organization Address City/State/[facility] Co de Phone Number [facility] [place] [address] * (ABNORMAL) BLOOD GAS 2 ARTERIAL (09/21/2016 10:54 AM EST) pH, Arterial 7.43 7.35 - 7.45 [facility] PCO2, Arterial 40 35 - 45 mmHg [facility] PO2, Arterial 297(H) 85 - 104 mmHg [facility] Bicarbonate, Arterial 26.0 20.0 - 26.0 mmol/L [facility] Base Excess, Arterial 1.6 -3.0 - 3.0 mmol/L [facility] Hgb Blood Gas 8.6(L) 11.7 - 15.5 gm/dL [facility] Oxyhemoglobin, Arterial 98.6(H) 94.0 - 97.0 % [facility] Carboxyhemoglob in, Arterial 0.5 % [facility] Comment: Nonsmokers: 0.5-1.5% COHB Smokers: Variable, but usually less than 10% Toxic: 20-30% COHB Lethal: Greater than 60% COHB Methemoglobin, Arterial 0.3 <=1.5 % [facility] Na Whole Blood 134(L) 135 - 145 mmol/L [facility] K Whole Blood 4.5 3.5 - 5.0 mmol/L [facility] Comment: Please note: Patients with WBC >100,000 may have falsely elevated Potassium levels. Contact the Clinical Chemistry Laboratory if there are any questions. ICa Whole Blood 1.16 1.15 - 1.33 mmol/L [facility] Comment: Note: ??Total bilirubin higher than 20 mg/dL may lead to falsely low ionized calcium. CL Whole Blood 104 98 - 107 mmol/L [facility] Gluc Whole Bld 240(H) 65 - 199 mg/dL [facility] Comment:Diabetes: >=200 mg/d L plus symptoms. Lactate WB 2.4(H) 0.5 - 2.2 mmol/L [facility] FIO2 Art 95 % [facility] Flow Art 0.7 LPM [facility] PF Ratio Art 313 [facility] Temp Art 36.7 Celsius [facility] Blood specimen (specimen) 09/21/2016 10:54 AM EST 09/21/2016 10:54 AM EST Alirio Esparza MD POINT OF CARE TEST ORDERABLES Performing Organization Address City/State/[facility] Co de Phone Number [facility] [place] [address] * Thrombin time (09/21/2016 10:50 AM EST) Thrombin Time 19 15 - 20 sec [facility] Comment: A prolongation in [...] ORDERABLE S Performing Organization Address [facility] Co de Phone Number [facility] [place] [address] * Fibrinogen (09/21/2016 10:50 AM EST) Fibrinogen 228 180 - 510 mg/dL [facility] Comment: Called by: JONNATHAN, Read back by: MICHELLE ALEJANDRE_, Date/Time:09/21/16 11:11. A fibrinogen level >100 mg/dL is adequate for hemostasis in most patients without underlying bleeding disorders. Blood specimen (specimen) 09/21/2016 10:50 AM EST 09/21/2016 10:56 AM EST Narrative Resulting Agency Comment Spec In Lab Luis Enrique Quarles MD HEMATOLOGY ORDERABLE S Performing Organization Address [facility] Co de Phone Number [facility] [place] [address] * APTT (09/21/2016 10:50 AM EST) Partial Thromboplastin Time 32 25 - 35 sec [facility] Comment: The recommended therapeutic range for full dose, unfractionated heparin at [facility] [place] is 80 ? 114 [...] MD HEMATOLOGY ORDERABLE S Performing Organization Address City/[facility] Co de Phone Number [facility] [place] [address] * (ABNORMAL) Prothrombin Time (09/21/2016 10:50 AM EST) Prothrombin Time 18.7(H) 12.0 - 15.0 sec [facility] Comment: An INR <2.0 [...] International Normalization Ratio 1.5(H) 0.9 - 1.1 [facility] Blood specimen (specimen) 09/21/2016 10:50 AM EST 09/21/2016 10:56 AM EST Narrative Resulting Agency Comment Spec In Lab Luis Enrique Quarles MD HEMATOLOGY ORDERABLE S Performing Organization Address City/State/[facility] Co de Phone Number [facility] [place] [address] * (ABNORMAL) Hemogram (09/21/2016 10:50 AM EST) Pathologist [facility] White Blood Cell 14.7(H) 4.0 - 9.5 x10(3)/mc L [facility] Red Blood Cell 2.40(L) 4.00 - 5.21 x10(6)/mc L [facility] Hemoglobin 7.9(L) 11.7 - 15.5 gm/dL [facility] Hematocrit 23.2(L) 35.7 - 45.8 % [facility] Comment: This result has been called to MICHELLE GRIGSBY by ASHU MORENO on 09 21 2016 at 1102, and has been read back. Mean Cell Volume 96.7(H) 82.6 - 94.4 fL [facility] Mean Cell Hemoglobin 32.9(H) 27.1 - 32.0 pg [facility] Mean Cell Hemoglobin Concentration 34.1 31.7 - 35.0 gm/dL [facility] Platelet 117(L) 145 - 357 x10(3)/mc L [facility] RDW Standard Deviation 42.6 37.0 - 46.0 [facility] LABOR[facility] RDW coefficient of variation 12.1 11.5 - 14.1 % [facility] Mean Platelet Volume 9.2 7.6 - 12.9 [facility] NRBC% auto 0.1 % [facility] NRBC Absolute 0.020(H) 0.000 - 0.000 x10(3)/mc L [facility] Blood specimen (specimen) 09/21/2016 10:50 AM EST 09/21/2016 10:56 AM EST Narrative Resulting Agency Comment Spec In Lab Luis Enrique Quarles MD HEMATOLOGY ORDERABLE S Performing Organization Address [facility] Co de Phone Number [facility] [place] [address] * Prepare Platelets, Apheresis (09/21/2016 10:30 AM EST) Pathologist [facility] Dispensed? Yes [facility] Blood specimen (specimen) 09/21/2016 10:30 AM EST 09/21/2016 10:28 AM EST Alirio Esparza MD BLOOD BANK PRODUCT ORDERABLES Performing Organization Address [facility] Co ga Phone Number [facility] [address] * (ABNORMAL) BLOOD GAS 2 ARTERIAL (09/21/2016 10:05 AM EST) pH, Arterial 7.33(L) 7.35 - 7.45 [facility] PCO2, Arterial 54(Critic al) 35 - 45 mmHg [facility] Comment:Noted by woodwind instrument repairer. PO2, Arterial 218(H) 85 - 104 mmHg [facility] Bicarbonate, Arterial 27.9(H) 20.0 - 26.0 mmol/L [facility] Base Excess, Arterial 2.0 -3.0 - 3.0 mmol/L [facility] Hgb Blood Gas 8.6(L) 11.7 - 15.5 gm/dL [facility] Oxyhemoglobin, Arterial 98.4(H) 94.0 - 97.0 % [facility] Carboxyhemoglo bin, Arterial 0.5 % [facility] Comment: Nonsmokers: 0.5-1.5% COHB Smokers: Variable, but usually less than 10% Toxic: 20-30% COHB Lethal: Greater than 60% COHB Methemoglobin, Arterial 0.3 <=1.5 % [facility] Na Whole Blood 129(L) 135 - 145 mmol/L [facility] K Whole Blood 6.2(Criti gabrielle) 3.5 - 5.0 mmol/L [facility] Comment: Noted by woodwind instrument repairer. Please note: Patients with WBC >100,000 may have falsely elevated Potassium levels. Contact the Clinical Chemistry Laboratory if there are any questions. ICa Whole Blood 0.95(L) 1.15 - 1.33 mmol/L [facility] Comment: Note: ??Total bilirubin higher than 20 mg/dL may lead to falsely low ionized calcium. CL Whole Blood 100 98 - 107 mmol/L [facility] Gluc Whole Bld 289(H) 65 - 199 mg/dL [facility] Comment:Diabetes: >=200 mg/d L plus symptoms. Lactate WB 2.2 0.5 - 2.2 mmol/L [facility] Temp Art 37.0 Celsius [facility] Blood specimen (specimen) 09/21/2016 10:05 AM EST 09/21/2016 10:05 AM EST Alirio Esparza MD POINT OF CARE TEST ORDERABLES [facility] [place] [address] * (ABNORMAL) BLOOD GAS 2 ARTERIAL (09/21/2016 9:44 AM EST) pH, Arterial 7.22(Criti gabrielle) 7.35 - 7.45 [facility] Comment:Noted by woodwind instrument repairer. PCO2, Arterial 70(Critica l) 35 - 45 mmHg [facility] Comment:Noted by woodwind instrument repairer. PO2, Arterial 224(H) 85 - 104 mmHg [facility] Bicarbonate, Arterial 27.8(H) 20.0 - 26.0 mmol/L [facility] Base Excess, Arterial 0.0 -3.0 - 3.0 mmol/L [facility] Hgb Blood Gas 8.7(L) 11.7 - 15.5 gm/dL [facility] Oxyhemoglobin, Arterial 98.5(H) 94.0 - 97.0 % [facility] Carboxyhemoglob in, Arterial 0.6 % [facility] Comment: Nonsmokers: 0.5-1.5% COHB Smokers: Variable, but usually less than 10% Toxic: 20-30% COHB Lethal: Greater than 60% COHB Methemoglobin, Arterial 0.3 <=1.5 % [facility] Na Whole Blood 131(L) 135 - 145 mmol/L [facility] K Whole Blood 5.9(H) 3.5 - 5.0 mmol/L [facility] Comment: Please note: Patients with WBC >100,000 may have falsely elevated Potassium levels. Contact the Clinical Chemistry Laboratory if there are any questions. ICa Whole Blood 1.00(L) 1.15 - 1.33 mmol/L [facility] Comment: Note: ??Total bilirubin higher than 20 mg/dL may lead to falsely low ionized calcium. CL Whole Blood 101 98 - 107 mmol/L [facility] Gluc Whole Bld 227(H) 65 - 199 mg/dL [facility] Comment:Diabetes: >=200 mg/d L plus symptoms. Lactate WB 2.1 0.5 - 2.2 mmol/L [facility] Blood specimen (specimen) 09/21/2016 9:44 AM EST 09/21/2016 9:44 AM EST Alirio Esparza MD POINT OF CARE TEST ORDERABLES [facility] [place] [address] * (ABNORMAL) Hemoglobin (09/21/2016 9:42 AM EST) Hemoglobin 7.2(L) 11.7 - 15.5 gm/dL [facility] Blood specimen (specimen) 09/21/2016 9:42 AM EST 09/21/2016 9:51 AM EST Narrative Resulting Agency Comment Spec In Lab Alirio Esparza MD HEMATOLOGY ORDERABL ES Performing Organization Address [facility]/ZIP Co de Phone Number [facility] [place] [address] * Platelet count (09/21/2016 9:42 AM EST) Platelet 159 145 - 357 x10(3)/mc L [facility] Immature Plt % 1.6 0.0 - 7.4 % [facility] Comment: Limitation of the Immature Platelet Fraction (IPF)-May be less reliable when the platelet count is less than 78t044/uL due to statistical imprecision. The IPF value [...] in a decreased state of production. References: [employer] The Clinical Value of the Immature Platelet Fraction (IPF) in Cell Recovery Document Number 10-1143 12/2010 [employer] The Role of the Immature Platelet Fraction (IPF) in the Differential Diagnosis of Thrombocytopenia, Document MKT-10-1209 V012/11/13 P012/13 Blood specimen (specimen) 09/21/2016 9:42 AM EST 09/21/2016 9:51 AM EST Narrative Resulting Agency Comment Spec In Lab Alirio Esparza MD HEMATOLOGY ORDERABL ES Performing Organization Address [facility] Co de Phone Number [facility] [place] [address] * (ABNORMAL) Hematocrit (09/21/2016 9:42 AM EST) Hematocrit 21.6(L) 35.7 - 45.8 % [facility] Comment: This result has been called to MICHELLE ALEJANDRE by Serjio Frazier on 09 21 2016 at 0957, and has been read back. Blood specimen (specimen) 09/21/2016 9:42 AM EST 09/21/2016 9:51 AM EST Narrative Resulting Agency Comment Spec In Lab Alirio Esparza MD HEMATOLOGY ORDERABL ES Performing Organization Address [facility] de Phone Number [facility] [place] [address] * Fibrinogen (09/21/2016 9:42 AM EST) Fibrinogen 219 180 - 510 mg/dL [facility] Comment: Called by: JONNATHAN, Read back by: MICHELLE ALEJANDRE_, Date/Time:09/21/16 10:03_. A fibrinogen level >100 mg/dL is adequate for hemostasis in most patients without underlying bleeding disorders. Blood specimen (specimen) 09/21/2016 9:42 AM EST 09/21/2016 9:51 AM EST Narrative Resulting Agency Comment Spec In Lab Alirio Esparza MD HEMATOLOGY ORDERABL ES Performing Organization Address [facility] Co de Phone Number [facility] [place] [address] * (ABNORMAL) BLOOD GAS 2 ARTERIAL (09/21/2016 9:10 AM EST) pH, Arterial 7.36 7.35 - 7.45 [facility] PCO2, Arterial 48(H) 35 - 45 mmHg [facility] PO2, Arterial 295(H) 85 - 104 mmHg [facility] Bicarbonate, Arterial 26.0 20.0 - 26.0 mmol/L [facility] Base Excess, Arterial 0.5 -3.0 - 3.0 mmol/L [facility] Hgb Blood Gas 8.0(L) 11.7 - 15.5 gm/dL [facility] Oxyhemoglobin, Arterial 98.3(H) 94.0 - 97.0 % [facility] Carboxyhemoglob in, Arterial 1.0 % [facility] Comment: Nonsmokers: 0.5-1.5% COHB Smokers: Variable, but usually less than 10% Toxic: 20-30% COHB Lethal: Greater than 60% COHB Methemoglobin, Arterial 0.3 <=1.5 % [facility] Na Whole Blood 135 135 - 145 mmol/L [facility] K Whole Blood 5.4(H) 3.5 - 5.0 mmol/L [facility] Comment: Please note: Patients with WBC >100,000 may have falsely elevated Potassium levels. Contact the Clinical Chemistry Laboratory if there are any questions. ICa Whole Blood 0.93(L) 1.15 - 1.33 mmol/L [facility] Comment: Note: ??Total bilirubin higher than 20 mg/dL may lead to falsely low ionized calcium. CL Whole Blood 102 98 - 107 mmol/L [facility] Gluc Whole Bld 195 65 - 199 mg/dL [facility] Comment:Diabetes: >=200 mg/d L plus symptoms. Lactate WB 1.8 0.5 - 2.2 mmol/L [facility] Temp Art 37.0 Celsius [facility] Blood specimen (specimen) 09/21/2016 9:10 AM EST 09/21/2016 9:10 AM EST Alirio Esparza MD POINT OF CARE TEST ORDERABLES Performing Organization Address City/[facility] Co de Phone Number [facility] [place] [address] * Surgical Pathology Report (09/21/2016 9:09 AM EST) Final Diagnosis [id number] ?Location: 3T The signing pathologist has (i) [...] ?. (R1) ??ADELITA 09/24/2016 9:32 AM EST [facility] AORTIC STRUCTURE / Unknown 09/21/2016 9:09 AM EST 09/21/2016 9:09 AM EST Alirio Esparza MD PATHOLOGY/CYTOLOGY ORDERABLES Performing Organization Address [facility]/ZIP Co de Phone Number [facility] [place] [address] * Specimen to Pathology (surgical or derm) (09/21/2016 9:09 AM EST) AP Specimen 09/21/2016 9:09 AM EST 09/21/2016 9:09 AM EST Narrative [facility] - 09/21/2016 9:09 AM EST Specimen requisition ordered. ??Separate Pathology report to follow Alirio Esparza MD PATHOLOGY/CYTOLOGY ORDERABLES [facility] [place] [address] * (ABNORMAL) BLOOD GAS 2 ARTERIAL (09/21/2016 8:50 AM EST) pH, Arterial 7.41 7.35 - 7.45 [facility] PCO2, Arterial 33(L) 35 - 45 mmHg [facility] PO2, Arterial 348(H) 85 - 104 mmHg [facility] Bicarbonate, Arterial 20.6 20.0 - 26.0 mmol/L [facility] Base Excess, Arterial -4.1(L) -3.0 - 3.0 mmol/L [facility] Hgb Blood Gas 9.5(L) 11.7 - 15.5 gm/dL [facility] Oxyhemoglobin, Arterial 98.8(H) 94.0 - 97.0 % [facility] Carboxyhemoglob in, Arterial 0.3 % [facility] Comment: Nonsmokers: 0.5-1.5% COHB Smokers: Variable, but usually less than 10% Toxic: 20-30% COHB Lethal: Greater than 60% COHB Methemoglobin, Arterial 0.3 <=1.5 % [facility] Na Whole Blood 137 135 - 145 mmol/L [facility] K Whole Blood 4.0 3.5 - 5.0 mmol/L [facility] Comment: Please note: Patients with WBC >100,000 may have falsely elevated Potassium levels. Contact the Clinical Chemistry Laboratory if there are any questions. ICa Whole Blood 1.04(L) 1.15 - 1.33 mmol/L [facility] Comment: Note: ??Total bilirubin higher than 20 mg/dL may lead to falsely low ionized calcium. CL Whole Blood 105 98 - 107 mmol/L [facility] Gluc Whole Bld 93 65 - 199 mg/dL [facility] Comment:Diabetes: >=200 mg/d L plus symptoms. Lactate WB 1.0 0.5 - 2.2 mmol/L [facility] Blood specimen (specimen) 09/21/2016 8:50 AM EST 09/21/2016 8:50 AM EST Alirio Esparza MD POINT OF CARE TEST ORDERABLES [facility] [place] [address] * (ABNORMAL) BLOOD GAS 2 ARTERIAL (09/21/2016 8:18 AM EST) pH, Arterial 7.42 7.35 - 7.45 [facility] PCO2, Arterial 36 35 - 45 mmHg [facility] PO2, Arterial 283(H) 85 - 104 mmHg [facility] Bicarbonate, Arterial 22.8 20.0 - 26.0 mmol/L [facility] Base Excess, Arterial -2.0 -3.0 - 3.0 mmol/L [facility] Hgb Blood Gas 12.6 11.7 - 15.5 gm/dL [facility] Oxyhemoglobin, Arterial 99.0(H) 94.0 - 97.0 % [facility] Carboxyhemoglob in, Arterial 0.6 % [facility] Comment: Nonsmokers: 0.5-1.5% COHB Smokers: Variable, but usually less than 10% Toxic: 20-30% COHB Lethal: Greater than 60% COHB Methemoglobin, Arterial 0.0 <=1.5 % [facility] Na Whole Blood 144 135 - 145 mmol/L [facility] K Whole Blood 4.0 3.5 - 5.0 mmol/L [facility] Comment: Please note: Patients with WBC >100,000 may have falsely elevated Potassium levels. Contact the Clinical Chemistry Laboratory if there are any questions. ICa Whole Blood 1.22 1.15 - 1.33 mmol/L [facility] Comment: Note: ??Total bilirubin higher than 20 mg/dL may lead to falsely low ionized calcium. CL Whole Blood 106 98 - 107 mmol/L [facility] Gluc Whole Bld 102 65 - 199 mg/dL [facility] Comment:Diabetes: >=200 mg/d L plus symptoms. Lactate WB 1.2 0.5 - 2.2 mmol/L [facility] FIO2 Art 95 % [facility] Flow Art 1.1 LPM [facility] PF Ratio Art 298 [facility] Temp Art 35.6 Celsius [facility] Blood specimen (specimen) 09/21/2016 8:18 AM EST 09/21/2016 8:18 AM EST Alirio Esparza MD POINT OF CARE TEST ORDERABLES [facility] [place] [address] * Prepare RBC (09/21/2016 7:05 AM EST) Dispensed? Yes [facility] Blood specimen (specimen) 09/21/2016 7:05 AM EST 09/21/2016 7:02 AM EST Alirio Esparza MD BLOOD BANK PRODUCT ORDERABLES [facility] [place] [address] * POCT Glucose (09/21/2016 6:42 AM EST) Glucose, POC 104 65 - 199 mg/dL [facility] Comment: Supplemental ranges: <140 mg/dL before meals <180 mg/dL all other times of the day Blood specimen (specimen) 09/21/2016 6:42 AM EST 09/21/2016 6:42 AM EST Alirio Esparza MD POINT OF CARE TEST ORDERABLES [facility] [address] documented in this encounter Visit Diagnoses Diagnosis [...] dose on Wed09/21/16 at 1230, Until Discontinued, [place] teeth, Routine Given 09/25/2016 9:40 AM EST [...] if phenyleprine and/or vasopressin ineffective.Call pager # [phone] if initiated., Routine Rate/Dose Change 09/21/2016 2:27 [...] 2.0 L/min/M2. Maximum volume 2 L. Call maintenance worker house trailer for additional fluid orders: pager #[phone]. Rate/Dose Verify 09/22/2016 10:00 AM EST 10 [...] Provider: Alie Whitfield RN)0551 (Given - Provider: Alei Whitfield RN)1150 (Given - Provider: Marek Barnes RN)1852 (Given - Provider: Chaya Hill RN) 0000 (Not Given - Provider: Alie Whitfield RN - Reason: Patient/family refused)0600 (Not Given - Provider: Breanna Olivas RN - Reason: Patient/family refused)0942 (Given - Provider: Joselyn Caceres RN - Comment: not given at 0600)1600 (Due - Provider: Kendall Martínez [facility]) aspirin chewable tablet 81 mg(Linked [...] dose on Wed09/21/16 at 1230, Until Discontinued, [place] teeth, Routine 0900 (Not Given - Provider: [...] 1130, Until Discontinued 1301 (Given - Provider: Fedeirco Apple RN)170 (Given - Provider: Federico Apple [...] at start of shift)1022 (Given - Provider: lEsa Miguel RN)2019 (Given - Provider: Federico Apple [...] Routine documented in this encounter Care Teams Affiliate Marketing Manager Relationship Specialty Start Date End Date Deborah Quiroga APRN PCP - General Family Medicine 03/24/16 02/04/23 documented as of this encounter
--- OUTSIDE RECORDS SUMMARY | 2024-03-23 14:03 | XMS_ITS | Encounter Summary ---
[place] [address] Care Team Providers Care Loans Consultant Name Role Phone Deborah Quiroga APRN Primary Care Provider [phone] Encounter Details Date Type Department Care Team (Latest Contact Info) Description 10/14/2016 - 10/14/2016 11:59 PM EDT Hospital Encounter [place] [phone] Alirio Esparza MD Pain Discharge Disposition: Home [...] (Take 5mg every 4 hours for pain 6-1010 as needed.) for up to 30 days. [...] 4:15 PM EDT Office Visit Dermatology at [place] [address] [facility] [place] [address] Marek Bonilla MD [address], [place] [address] documented as of this encounter Procedures Procedure Name Priority Date/Time Associated Diagnosis Comments FILM LIBRARY STORAGE ONLY DX CHEST Routine 10/14/2016 12:00 AM EDT Pain documented in this encounter Results * Film Library- Storage Only DX Chest (10/14/2016 12:00 AM EDT) Narrative [facility] - 10/14/2016 5:16 PM EDT This exam is for storage only and is auto-finalizing. Alirio Esparza MD IMG FILM LIBRARY OR DERABLES [place], [place] documented in this encounter Visit Diagnoses Diagnosis Pain Generalized pain documented in this encounter Care Teams Loans Consultant Relationship Specialty Start Date End Date Deborah Quiroga APRN PCP - General Family Medicine 03/24/16 02/04/23 documented as of this encounter
--- OUTSIDE RECORDS SUMMARY | 2024-03-23 14:03 | XMS_ITS | Encounter Summary ---
Author Organization [facility] [place] [address] Care Team Providers Care Toolsmith Name Role Phone Ashley Quirogan Sylvia ANURAG Primary Care Provider [phone] Reason for Visit * Reason Onset Date Comments Results 12/03/2016 Encounter Details Date Type Department Care Team (Late Contact Info) Description 12/03/2016 Telephone [place]ology [place] [phone] Yudith Valentine RN Results Social History Tobacco [...] EDT RN received call from Maddy at [facility] reporting critical WBC at 1.61, and ANC of 0.5. She will fax the full results to this office for utilization reviewer notified DR Borjas of above results documented in this encounter Plan of Treatment Upcoming Encounters Date Type Department Care Team (Late st Contact Info) Description 03/01/2025 4:15 PM EDT Office Visit Dermatology at [address] [address] Marek Bonilla MD [address], [place] [address] documented as of this encounter Visit Diagnoses Not on filedocumented in this encounter Care Teams Toolsmith Relationship Specialty Start Date End Date Deborah Quiroga APRN PCP - General Family Medicine 03/24/16 02/04/23 documented as of this encounter
--- OUTSIDE RECORDS SUMMARY | 2024-03-23 14:03 | XMS_ITS | Encounter Summary ---
Author Organization [facility] Address [facility] [place] [address] Care Team Providers Care Airline Radio Operator Name Role Phone Deborah Quiroga APRN Primary Care Provider [phone] Encounter Details Date Type Department Care Team (Late st Contact Info) Description 03/01/2020 11:30 AM EDT Office Visit Hematology [place] [phone] Patrick Borjas MD [facility] [address] [place] [address] Neutropenia, unspecified type Social History Tobacco Use [...] 11:30 AM EDT Hematology Outpatient Clinic [facility] Hematology Outpatient Consult Note CC: 60 [...] TOUCH PREP, CLOT SECTION, CORE ??BIOPSY); [OSR# [id number], COLLECTED 06/23/2016, 19 SLIDES]: ?1. 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 Extremities: No edema. Labs: Hgb= 12.4 Ruje=730 ANC= 2.5 Imaging As above - reviewed [...] PM EDT Office Visit Dermatology at [address] [address] Marek Bonilla MD [address] [facility], [place] [address] documented as of this encounter Visit Diagnoses Diagnosis Neutropenia, unspecified type documented in this encounter Care Teams Airline Radio Operator Relationship Specialty Start Date End Date Deborah Quiroga APRN PCP - General Family Medicine 03/24/16 02/04/23 documented as of this encounter
--- OUTSIDE RECORDS SUMMARY | 2024-03-23 14:04 | XMS_ITS | Encounter Summary ---
[place] [address] Care Team Providers Care Scan Coordinator Name Role Phone Junaid, Deborah Shields APRN Primary Care Provider [phone] Reason for Visit * Auth/Cert Specialty Diagnoses / Procedures Referred By Crispin t Referred To Contact Diagnoses Aortic stenosis Procedures PRO REPLACE AORT VALV, PROSTH VALV @REPLACE AORTIC VALVE, OPEN, W\CPB, W\PROSTHETIC VALVE (WRVU 41.32) Referral ID Status Reason Start Date Expiration Date Visits Re quested Visits Authorized [id number] 1 1 Encounter Details Date Type Department Care Team (Late st Contact Info) Description 09/21/2016 7:25 AM EST Anesthesia Event [place] [address] Luis Enrique Quarles MD [facility] [place] [address] Henrik Cooper MD [facility] [place] [address] Anesthesia Record Procedure Summary Procedure Name Responsible [...] 0819 Sternotomy 0844 CV Bypass init 1009 Seamer Panty Hose 1014 An Clamp Remove 1031 CP Bypass [...] Tube 09/21/16 (#28 angled chest tube to [place]: left: pericardial); Left; 09/22/16; 1119 09/21/16 0000 by Toshia Alejandre RN 09/22/16 1119 by Vero Bonilla RN Chest Tube 09/21/16 (#28 straig ht chest tube to [place]; right: mediastinal'); Right; mediastinum; 09/22/16; 1118 09/21/16 0000 by Toshia Alejandre RN 09/22/16 1118 by Vero Bonilla RN (RETIRED) Peripheral IV Line - Single Lumen 09/21/16; 0648; metacarpal vein (top of hand), left; inkd-eid-xovigq catheter system; 20 gauge; valdo Arteaga; 09/23/16; [...] - 09/21/2016 6:50 PM EST [facility] Department of Anesthesiology Post-procedure Note Patient: Purnima Thacker Procedure Summary Date Anesthesia Start Anesthesia Stop Room / Location 09/21/16 07 1152 [facility] OR 16 / [facility] MAIN OR Procedure Diagnosis Surgeon Responsible Provider @REPLACE AORTIC VALVE, OPEN, W\CPB, W\PROSTHETIC VALVE (WRVU 41.32) (N/A Chest); @AORTOPLASTY FOR SUPRAVALVULAR STENOSIS (WRVU 29.33) (N/A Chest) () Alirio Francisco MD Clark, Jeffrey A, MD All Anesthesia Providers: Anesthesiologist: Luis Enrique Quarles MD [place] Captain: Henrik Cooper MD Last (1hr) Vitals: BP Temp 36.1 ??C (97 ??F) (09/21/16 1800) Pulse 79 (09/21/16 1800) Resp 11 (09/21/16 1800) SpO2 98 % (09/21/16 1800) Patient Location: [facility] Level of Consciousness: Sedated (Pharmacologic/Intentional) Pain [...] 4:15 PM EDT Office Visit Dermatology at [place] [address] [facility] [place] [address] Marek Bonilla MD [address] [place] [address] RD, [address] [place] [address] documented as of this encounter Visit Diagnoses [...] mg documented in this encounter Care Teams Scan Coordinator Relationship Specialty Start Date End Date Deborah Quiroga, TRAINING SYSTEMS OFFICER PCP - General Family Medicine 03/24/16 02/04/23 documented as of this encounter
--- OUTSIDE RECORDS SUMMARY | 2024-03-23 14:04 | XMS_ITS | Encounter Summary ---
[place] [address] Care Team Providers Care Road Monkey Name Role Phone Ashley Quirogan Cornelius ANURAG Primary Care Provider [phone] Reason for Visit * Reason Onset Date Comments Medication Management 09/14/2016 Encounter Details Date Type Department Care Team (Late st Contact Info) Description 09/14/2016 Telephone Hematology [place] [phone] Alexandrea Greenwood, hobbing press operator Management Social History Tobacco Use Types Packs/Day [...] 9:12 AM EST Message received from medical office secretary: Purnima called, asking for clarification on [...] EDT Office Visit Dermatology at [place] [address] [facility] [place] [address] Marek Bonilla MD [address], [address] [place] [address] documented as of this encounter Visit Diagnoses Not on filedocumented in this encounter Care Teams Road Monkey Relationship Specialty Start Date End Date Deborah Quiroga APRN PCP - General Family Medicine 03/24/16 02/04/23 documented as of this encounter
--- OUTSIDE RECORDS SUMMARY | 2024-03-23 14:04 | XMS_ITS | Encounter Summary ---
Author Organization [facility] Address [facility] [place] [address] Care Team Providers Care Mixer Pigment Name Role Phone Ashley Quirogan Cornelius ANURAG Primary Care Provider [phone] Encounter Details Date Type Department Care Team (Late st Contact Info) Description 08/11/2016 Telephone Hematology [place] [phone] Markel Borjas MD [facility] [address] [place] [address] Social History Tobacco Use Types Packs/Day Years [...] 4:15 PM EDT Office Visit Dermatology at [place] [address] [place] [address] Marek Bonilla MD [address], [place] [address] documented as of this encounter Visit Diagnoses Not on filedocumented in this encounter Care Teams Mixer Pigment Relationship Specialty Start Date End Date Deborah Quiroga APRN PCP - General Family Medicine 03/24/16 02/04/23 documented as of this encounter
--- OUTSIDE RECORDS SUMMARY | 2024-03-23 14:04 | XMS_ITS | Encounter Summary ---
[place] [address] Care Team Providers Care Pot Fisher Name Role Phone Ashley Quirogan Cornelius ANURAG Primary Care Provider [phone] Encounter Details Date Type Department Care Team (Late st Contact Info) Description 07/03/2016 External Results Hematology [place] [address] Matthew Cervantes, DO [address] [place] [address] Social History Tobacco Use Types Packs/Day Years [...] EDT Office Visit Dermatology at [place] [address] [facility] [phone] Marek Bonilla MD [address] [facility], [address] [facility] D[place]MATOLOGY [place], [place] [address] documented as of this encounter Procedures Procedure Name Priority Date/Time Associated Diagnosis Comments BONE MARROW ASPIRATION PERFO RMED WITH BONE MARRROW BIOPSY Routine 06/28/2016 documented in this encounter Results * BONE MARROW ASPIRATION PREFORMED WITH BONE MARRROW BIOPSY (06/28/2016) Matthew Cervantes DO GENERAL SURGI DANIEL ORDERABLES documented in this encounter Visit Diagnoses Not on filedocumented in this encounter Care Teams Pot Fisher Relationship Specialty Start Date End Date Deborah Quiroga, FRAME GATE MORTISER OPERATOR PCP - General Family Medicine 03/24/16 02/04/23 documented as of this encounter
--- OUTSIDE RECORDS SUMMARY | 2024-03-23 14:04 | XMS_ITS | Encounter Summary ---
Author Organization [facility] Address [facility] [place] [address] Care Team Providers Care Ski Lift Attendant Name Role Phone Deborah Quiroga ANURAG Primary Care Provider [phone] Encounter Details Date Type Department Care Team (Late st Contact Info) Description 05/22/2016 Orders Only Cardiology at [address] [address] Chele Randolph PA [facility] [place] [address] Aortic valve stenosis, unspecified etiology Social History [...] 4:15 PM EDT Office Visit Dermatology at [place] [address] [place] [phone] Marek Bonilla MD [address] [place] [address] documented as of this encounter Procedures Procedure Name Priority Date/Time Associated Diagnosis Comments CARDIAC CATHETERIZATION Routine 06/03/20 16 9:13 AM EDT Aortic valve stenosis, unspecified etiology documented in this encounter Results * CARDIAC CATHETERIZATION (06/03/2016 9:13 AM EDT) Anatomical Region Laterality Modality Other Narrative 06/03/2016 10:13 AM EDT ?[facility] ? Cardiac Catheterization/Intervention Report ? Patient Name: Kirstie, Purnima M. ? Procedure Date: 06/03/2016 ? A #: [id number] ? Primary Physician: Nitesh Escobedo ? Case #: [id number] ? File Name: [id number] ? Catheterization Order Number: [id number] ? [facility] ? Final Report [place], [place] ? Patient Name: ? Purnima M. Kirstie ? ID#: ?[id number] ? : ?1955 ? Procedure Date: ? [...] no symptom, no angina (w/i 14 days). Palestinian ?Cardiovascular Society angina class was 0. This [...] Procedure Note Nitesh Escobedo MD - 09/21/2016 [facility] Cardiac Catheterization/Intervention Report Patient Name: Purnima Thacker Procedure Date: 06/03/2016 A #: [id number] Primary Physician: Nitesh Escobedo Case #: [id number] File Name: [id number] Catheterization Order Number: [id number] [facility] FinalReport [place], [place] Patient Name: Purnima Thacker ID#:[id number] :1955 Procedure Date: June 03, 2016 Case [...] with: no symptom, no angina (w/i 14 days).[place]estinian Cardiovascular Society angina class was 0. This [...] etiology documented in this encounter Care Teams Ski Lift Attendant Relationship Specialty Start Date End Date Deborah Quiroga APRN PCP - General Family Medicine 03/24/16 02/04/23 documented as of this encounter
--- OUTSIDE RECORDS SUMMARY | 2024-03-23 14:04 | XMS_ITS | Encounter Summary ---
Author Organization [facility] Address [facility] [place] [address] Care Team Providers Care Plastics Fabricator Name Role Phone Junaid, Deborah Shields APRN Primary Care Provider [phone] Reason for Visit * Auth/Cert Specialty Diagnoses / Procedures Referred By Crispin t Referred To Contact Diagnoses AVS Procedures CARDIAC CATHETERIZATION Referral ID Status Reason Start Date Expiration Date Visits Re quested Visits Authorized [id number] 1 1 Encounter Details Date Type Department Care Team (Late st Contact Info) Description 06/03/2016 7:30 AM EDT - 06/03/2016 8:30 AM EDT [place] [phone] Mario Alberto Escobedo MD [facility] [place] [address] CARDIAC CATHETERIZATION Social History Tobacco Use Types [...] by your doctor, do not take any qxqd-sac-ecsolhv medicinesor herbal preparations without first discussing this with your doctor or pharmacist. There is the possibility of side effects and interactions when these are combined. Follow Up Care Who to call with questions or problems If there are any questions or problems that you think might be related to your cardiac cath or angioplasty, contact the escrow secretary health companion by calling [facility] at . * Patient Instructions* Felicia Corrigan - 06/03/2016 9:33 AM EDT Cardiology Instructions Call your doctor if: Chest pain, dyspnea, pain or swelling in legs occurs. If you have non-emergent questions between now and the time of your follow up appointments: -During 8am-5pm Wednesday through Wednesday call [phone] to speak with a nurse in the cardiology clinic -All other times call [phone] and ask to speak to the water maintenance supervisor health companion. MEDICATIONS - restart your spironolactone, discontinue prior [...] Appointments: Primary care provider: Cardiology: Deborah Hahn, MARKETING MANAGER HEALTH COMMUNICATIONS [phone] Follow up as planned or as needed. Dr. Esparza [phone] Other follow-up appointment: Hematology - Dr. Mario [...] 4:15 PM EDT Office Visit Dermatology at [place] [address] [place] [address] Marek Bonilla MD [address], [address] [place] [address] documented as of this encounter Procedures Procedure [...] Green Tube HOLD (06/03/2016 11:45 AM EDT) [facility] Green Hold Sample in lab. [facility] Blood specimen (specimen) Venous Draw / Unknown 06/03/2016 11:45 AM EDT 06/03/2016 12:12 PM EDT Mario Alberto Escobedo MD CHEMISTRY ORDERABLES Performing Organization Address [facility] de Phone Number [facility] [place] [address] * Methylmalonic acid, serum (06/03/2016 11:45 AM EDT) [facility] Methylmalonic Acid (NOVEMBER) 0.21 <=0.40 nmol/mL [facility] Comment: Test Performed by: [place] [address] [employer]: Raymond Chaudhry II, M.D., Ph.D. Blood specimen (specimen) 06/03/2016 11:45 AM EDT 06/03/2016 1:57 PM EDT Narrative Resulting Agency Comment Spec In Lab Mario Alberto Escobedo MD LAB SEND OUT ORDERAB LES Performing Organization Address [facility] Co de Phone Number [facility] [place] [address] * Granulocyte Antibody (06/03/2016 11:45 AM EDT) [facility] Granulocyte Ab (NOVEMBER) Negative Not Applicable [facility] Comment: ADDITIONAL INFORMATION Method: Immunofluorescent Assay Performing Laboratory CLIA# [id number] This test was developed and its performance characteristics determined by [facility] in a manner consistent with CLIA requirements. This test has not been cleared or approved by the U.S. Food and Drug Administration. Test Performed by: [facility] - [address] [address] [employer]: Raymond Chaudhry II, M.D., Ph.D. Blood specimen (specimen) 06/03/2016 11:45 AM EDT 06/03/2016 1:57 PM EDT Narrative Resulting Agency Comment Spec In Lab Mario Alberto Escobedo MD LAB SEND OUT ORDERAB LES Performing Organization Address [facility] Co de Phone Number [facility] [place] [address] * TSH (06/03/2016 11:45 AM EDT) Thyroid Stimulating Hormone 2.18 0.27 - 4.20 mcIU/mL [facility] Blood specimen (specimen) 06/03/2016 11:45 AM EDT 06/03/2016 12:11 PM EDT Narrative Resulting Agency Comment Spec In Lab Mario Alberto Escobedo MD CHEMISTRY ORDERABLES Performing Organization Address [facility] Co de Phone Number [facility] [place] [address] * Homocysteine Total, Plasma (06/03/2016 11:45 AM EDT) Homocystine 9 <=15 mcmol/L [facility] Blood specimen (specimen) 06/03/2016 11:45 AM EDT 06/03/2016 12:11 PM EDT Narrative Resulting Agency Comment Spec In Lab Mario Alberto Escobedo MD CHEMISTRY ORDERABLES Performing Organization Address [facility] Co de Phone Number [facility] [place] [address] * Folate, serum (06/03/2016 11:45 AM EDT) Folate >20.0 4.8 - 24.2 ng/mL [facility] Blood specimen (specimen) 06/03/2016 11:45 AM EDT 06/03/2016 12:04 PM EDT Narrative Resulting Agency Comment Spec In Lab Mario Alberto Escobedo MD CHEMISTRY ORDERABLES Performing Organization Address [facility] Co de Phone Number [facility] [place] [address] * (ABNORMAL) Sedimentation rate (06/03/2016 11:45 AM EDT) Sedimentation Rate Automated 41(H) 0 - 20 mm/hr [facility] Blood specimen (specimen) 06/03/2016 11:45 AM EDT 06/03/2016 12:04 PM EDT Narrative Resulting Agency Comment Spec In Lab Mario Alberto Escobedo MD HEMATOLOGY ORDERABLE S Performing Organization Address [facility] Co de Phone Number [facility] [place] [address] * Lactate Dehydrogenase (06/03/2016 11:45 AM EDT) Lactate Dehydrogenase 164 110 - 220 unit/L [facility] Blood specimen (specimen) 06/03/2016 11:45 AM EDT 06/03/2016 12:11 PM EDT Narrative Resulting Agency Comment Spec In Lab Mario Alberto Escobedo MD CHEMISTRY ORDERABLES Performing Organization Address [facility] Co de Phone Number [facility] [place] [address] * Comprehensive metabolic panel (non-fasting) (06/03/2016 11:45 [...] LABORATORY Est Glomerular Filtration Rate >60 >=60 [facility] Comment: [...] the following links into your internet browser. [email or web address] Blood specimen (specimen) 06/03/2016:45 AM EDT 06/03/2016 12:11 PM EDT Narrative Resulting Agency Comment Spec In Lab Mario Alberto Escobedo MD CHEMISTRY ORDERABLES [facility] [place] [address] documented in this encounter Visit Diagnoses Diagnosis [...] Hernandez) documented in this encounter Care Teams Plastics Fabricator Relationship Specialty Start Date End Date Deborah Quiroga APRN PCP - General Family Medicine 03/24/16 02/04/23 documented as of this encounter
--- OUTSIDE RECORDS SUMMARY | 2024-03-23 14:04 | XMS_ITS | Encounter Summary ---
[place] [address] Care Team Providers Care Development And Housing Director Name Role Phone JunaidDeborah APRN Primary Care Provider [phone] Reason for Visit * Reason Onset Date Comments Labs Only 09/16/2016 Encounter Details Date Type Department Care Team (Late st Contact Info) Description 09/16/2016 Telephone Hematology [place] [address] Alexandrea Greenwood, RN Labs Only Social History [...] 09/16/2016 11:09 AM EST Message received from typing secretary: Purnima is having her Neulasta done today at [facility]. ??She is wondering if we want to do a CBC prior to the injection? [phone] Borjas: CBC is fine RN spoke with Swapna at [facility] who confirms they can draw CBC on pt today, RN faxed CBC w/diff to [facility] lab at [phone] RN relayed to pt that CBC ordered had been faxed to [facility], pt will have CBC drawn today prior to neulasta injection. documented in this encounter Plan of Treatment Upcoming Encounters Date Type Department Care Team (Late st Contact Info) Description 03/01/2025 4:15 PM EDT Office Visit Dermatology at [place] [address] [place] [address] Marek Bonilla MD [address], [address] [place] [address] documented as of this encounter Results * [...] type documented in this encounter Care Teams Development And Housing Director Relationship Specialty Start Date End Date Deborah Quiroga APRN PCP - General Family Medicine 03/24/16 02/04/23 documented as of this encounter
--- OUTSIDE RECORDS SUMMARY | 2024-03-23 14:04 | XMS_ITS | Encounter Summary ---
Author Organization [facility] Address [facility] [place] [address] Care Team Providers Care Motor Vehicle Field Representative Name Role Phone Deborah Quiroga APRN Primary Care Provider Encounter Details Date Type Department Care Team (Late st Contact Info) Description 07/17/2016 9:00 AM EST Office Visit Hematology [place] [address] Markel Borjas MD [facility] [address] [place] [address] Neutropenia, unspecified type Social History Tobacco Use [...] 07/17/2016 9:00 AM EST Hematology Outpatient Clinic [facility] Hematology Outpatient Consult Note CC: [...] TOUCH PREP, CLOT SECTION, CORE ??BIOPSY); [OSR# [id number], COLLECTED 06/23/2016, 19 SLIDES]: ?1. 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 Labs will be drawn at [facility] next week Imaging As above - [...] leukopenia. Will consi kanwal talking to pt's university registrar about a switch from ACEI to ARB [...] the original note were not included. [facility] H[facility] [address] Date: 07/17/16 Patient Name: Purnima Thacker : 1955 Diagnosis: neutropenia Referral to [site]: [facility] Orders: ? Labs: Fax results to . [x] Draw CBC, copper level, CMV PCR, mononucleosis screen on 07/20 Repeat CBC on 07/30 (to measure response of WBC after Neulasta) ? Growth factor: [x] Neulasta 6mg SQ injection x 1 on 07/20/2016 Signature: Markel Borjas MD beeper # [id number] documented in this encounter Plan of Treatment Upcoming Encounters Date Type Department Care Team (Late st Contact Info) Description 03/01/2025 4:15 PM EDT Office Visit Dermatology at [place] [address] [place] [address] Marek Bonilla MD [address], [place] [address] documented as of this encounter [...] MD HEMATOLOGY ORDERAB LES Performing Organization Address [facility] Co de Phone Number EXTERNAL LAB * Mononucleosis Screen (07/20/2016 10:30 AM EST) Mononucleosis Screen neg neg - neg EXTERNAL LAB Blood specimen (specimen) 07/20/2016 10:30 AM EST Markel Borjas MD IMMUNOLOGY ORDERAB LES Performing Organization Address [facility] Co de Phone Number EXTERNAL LAB * Copper, serum (07/20/2016 10:30 AM EST) Pathologist [facility] Copper (NOVEMBER) 1.09 0.75 - 1.45 EXTERNAL LAB Blood specimen (specimen) 07/20/2016 10:30 AM EST Markel Borjas MD LAB SEND OUT ORDER JODIE Performing Organization Address [facility] de Phone Number EXTERNAL LAB * CMV PCR, Quantitative (07/20/2016 10:30 AM EST) Pathologist [facility] CMV PCR,Quantitati ve undetected EXTERNAL LAB Blood specimen (specimen) 07/20/2016 10:30 AM EST Markel Borjas MD MOLECULAR ORDERABL ES Performing Organization Address [facility] Co de Phone Number EXTERNAL LAB * (ABNORMAL) CBC (with Diff) (07/20/2016 10:30 AM EST) Pathologist [facility] White Blood Cell 1.61(A) 4.4 - 10.8 EXTERNAL LAB Hemoglobin 12.3 12.0 - 16.0 EXTERNAL LAB Hematocrit 37.2 36.0 - 46.0 EXTERNAL LAB Platelet 229 130 - 400 EXTERNAL LAB Blood specimen (specimen) 07/20/2016 10:30 AM EST Markel Borjas MD HEMATOLOGY ORDERAB LES EXTERNAL LAB documented in this encounter Visit Diagnoses Diagnosis Neutropenia, unspecified type documented in this encounter Care Teams Motor Vehicle Field Representative Relationship Specialty Start Date End Date Deborah Quiroga, AGRICULTURAL ADVISER PCP - General Family Medicine 03/24/16 02/04/23 documented as of this encounter
--- OUTSIDE RECORDS SUMMARY | 2024-03-23 14:04 | XMS_ITS | Encounter Summary ---
[place] [address] Care Team Providers Care Clay Processing Factory Worker Name Role Phone Deborah Quiroga ANURAG Primary Care Provider [phone] Reason for Visit * Reason Onset Date Comments Medical Care Coordination 07/17/2016 Encounter Details Date Type Department Care Team ([facility] Contact Info) Description 07/17/2016 Telephone Hematology [place] [address] Alexandrea Greenwood RN Medical Care Coordination Social [...] 07/17/2016 12:07 PM EST Message received from legal secretary receptionist: Injection/Infusion Referral Call placed to [phone]). Spoke w/ Psaquale. Services to be provided for pt are: Labs @ 10am ([facility]) & Neulasta @ 11am on 07/20/16, CBC only on 07/30/16 Pasquale confirmed they would provide services to pt and I left [facility] for pt to call for appt info. Pt demographics, office note, med list and orders faxed to [facility] & [facility] documented in this encounter Plan of Treatment Upcoming Encounters Date Type Department Care Team (Late st Contact Info) Description 03/01/2025 4:15 PM EDT Office Visit Dermatology at [place] [address] [place] [address] Marek Bonilla MD [address] [place] [address] documented as of this encounter Visit Diagnoses Not on filedocumented in this encounter Care Teams Clay Processing Factory Worker Relationship Specialty Start Date End Date Deborah Quiroga APRN PCP - General Family Medicine 03/24/16 02/04/23 documented as of this encounter
--- OUTSIDE RECORDS SUMMARY | 2024-03-23 14:04 | XMS_ITS | Encounter Summary ---
Author Organization [facility] Address [facility] [place] [address] Care Team Providers Care Professional Sports Scout Name Role Phone Deborah Quiroga APRN Primary Care Provider [phone] Encounter Details Date Type Department Care Team (Latest Contact Info) Description 05/19/2016 11:52 AM EDT - 05/19/2016 11:59 PM EDT Hospital Encounter XRay at [address] [place] [address] Alirio Esparza MD Nonrheumatic aortic valve stenosis [...] 4:15 PM EDT Office Visit Dermatology at [place] [address] [place] [address] Marek Bonilla MD [address] [place] [address] documented as of this encounter Procedures Procedure [...] disorders documented in this encounter Care Teams Professional Sports Scout Relationship Specialty Start Date End Date Deborah Quiroga, HIDE BUYER PCP - General Family Medicine 03/24/16 02/04/23 documented as of this encounter
--- OUTSIDE RECORDS SUMMARY | 2024-03-23 14:04 | XMS_ITS | Encounter Summary ---
[place] [address] Care Team Providers Care Computing Machine Operator Name Role Phone Deborah Quiroga ANURAG Primary Care Provider [phone] Encounter Details Date Type Department Care Team (Late st Contact Info) Description 07/22/2016 External Results Hematology [place] [address] Alexandrea Greenwood RN Neutropenia, unspecified type Social [...] 4:15 PM EDT Office Visit Dermatology at [place] [address] [place] [address] Marek Bonilla MD [address] [place] [address] documented as of this encounter Procedures Procedure Name Priority Date/Time Associated Diagnosis Comments COPPER, SERUM Routine 07/20/2016 10:30 AM EST Neutropenia, unspecified type CMV PCR, QUANTITATIVE Routine 07/20/2016 10:30 AM EST Neutropenia, unspecified type MONONUCLEOSIS SCREEN ([facility]ANN[facility]) Routine 07/20/2016 10:30 AM EST Neutropenia, unspecified type CBC (WITH DIFF) Routine 07/20/2016 10:30 AM EST Neutropenia, unspecified type documented in this encounter Results * Copper, serum (07/20/2016 10:30 AM EST) Copper (NOVEMBER) 1.09 0.75 - 1.45 EXTERNAL LAB Blood specimen (specimen) 07/20/2016 10:30 AM EST Markel Borjas MD LAB SEND OUT ORDER JODIE Performing Organization Address [facility] Co de Phone Number EXTERNAL LAB * CMV PCR, Quantitative (07/20/2016 10:30 AM EST) CMV PCR,Quantitati ve undetected EXTERNAL LAB Blood specimen (specimen) 07/20/2016 10:30 AM EST Markel Borjas MD MOLECULAR ORDERABL ES Performing Organization Address [facility] Co de Phone Number EXTERNAL LAB * Mononucleosis Screen (07/20/2016 10:30 AM EST) Mononucleosis Screen neg neg - neg EXTERNAL LAB Blood specimen (specimen) 07/20/2016 10:30 AM EST Markel Borjas MD IMMUNOLOGY ORDERAB LES Performing Organization Address [facility] Co de Phone Number [...] type documented in this encounter Care Teams Computing Machine Operator Relationship Specialty Start Date End Date Deborah Quiroga, INDUSTRIAL CLEANING TECHNICIAN PCP - General Family Medicine 03/24/16 02/04/23 documented as of this encounter
--- OUTSIDE RECORDS SUMMARY | 2024-03-23 14:04 | XMS_ITS | Encounter Summary ---
Author Organization [facility] [place] [address] Care Team Providers Care Log Cooker Name Role Phone Deborah Quiroga APRN Primary Care Provider [phone] Encounter Details Date Type Department Care Team (Late st Contact Info) Description 08/18/2016 4:20 PM EST Clinical [place] [address] Social History Tobacco Use Types Packs/Day Years [...] 4:15 PM EDT Office Visit Dermatology at [place] [address] [place] [address] Marek Bonilla MD [address] [place] [address] documented as of this encounter Visit Diagnoses Not on filedocumented in this encounter Care Teams Log Cooker Relationship Specialty Start Date End Date Deborah Quiroga APRN PCP - General Family Medicine 03/24/16 02/04/23 documented as of this encounter
--- OUTSIDE RECORDS SUMMARY | 2024-03-23 14:04 | XMS_ITS | Encounter Summary ---
[place] [address] Care Team Providers Care Hat Measurer Name Role Phone Deborah Quiroga ANURAG Primary Care Provider [phone] Encounter Details Date Type Department Care Team (Late st Contact Info) Description 07/31/2016 Orders Only Hematology [place] [address] Alexandrea Greenwood RN Neutropenia, unspecified type Social [...] 4:15 PM EDT Office Visit Dermatology at [place] [address] [place] [address] Marek Bonilla MD [address] [place] [address] documented as of this encounter Results * [...] type documented in this encounter Care Teams Hat Measurer Relationship Specialty Start Date End Date Deborah Quiroga, AIR HAMMER OPERATOR PCP - General Family Medicine 03/24/16 02/04/23 documented as of this encounter
--- OUTSIDE RECORDS SUMMARY | 2024-03-23 14:04 | XMS_ITS | Encounter Summary ---
[place] [address] Care Team Providers Care Rate Clerk Passenger Name Role Phone Deborah Quiroga APRN Primary Care Provider [phone] Reason for Visit * Reason Onset Date Comments Prior Authorization 09/11/2016 Neulasta Encounter Details Date Type Department Care Team (Late st Contact Info) Description 09/11/2016 Telephone [place] [phone] Monica Wick Prior Authorization (Neulasta ) Social [...] AM EST Prior Auth for Neulasta (Approved) [facility] is a covered facility under the members plan. ID# [id number] Call placed to [phone] Rationale: Can you please start a PA for this pt to receive as outpatient at [facility] on 09/16/16? 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 ??Her last ANC was 0.56 (or 560) on 08/04/16. ??This will need to be approved through her medical as out patient. J code for neulasta. ?? [id number]. Spoke w/ Anna Marie Call Reference [id number] Copay: $ Deductible is not met, patient will have out of pocket costs until deductible is met. documented in this encounter Plan of Treatment Upcoming Encounters Date Type Department Care Team (Late st Contact Info) Description 03/01/2025 4:15 PM EDT Office Visit Dermatology at [place] [address] [place] [address] Marek Bonilla MD [address] [place] [address] documented as of this encounter Visit Diagnoses Not on filedocumented in this encounter Care Teams Rate Clerk Passenger Relationship Specialty Start Date End Date Deborah Quiroga APRN PCP - General Family Medicine 03/24/16 02/04/23 documented as of this encounter
--- OUTSIDE RECORDS SUMMARY | 2024-03-23 14:04 | XMS_ITS | Encounter Summary ---
[place] [address] Care Team Providers Care Cardiologist Name Role Phone Deborah Quiroga ANURAG Primary Care Provider [phone] Reason for Visit * Reason Onset Date Comments Pre Procedure Call 06/18/2016 Encounter Details Date Type Department Care Team (Late st Contact Info) Description 06/18/2016 Telephone Hematology [place] [address] Alexandrea Greenwood RN Pre Procedure Call Social [...] 4:15 PM EDT Office Visit Dermatology at [place] [address] [place] [address] Marek Bonilla MD [address] [place] [address] documented as of this encounter Visit Diagnoses Not on filedocumented in this encounter Care Teams Cardiologist Relationship Specialty Start Date End Date Deborah Quiroga APRN PCP - General Family Medicine 03/24/16 02/04/23 documented as of this encounter
--- OUTSIDE RECORDS SUMMARY | 2024-03-23 14:04 | XMS_ITS | Encounter Summary ---
[place] [address] Care Team Providers Care Pad Cutter Name Role Phone Deborah Quiroga APRN Primary Care Provider [phone] Encounter Details Date Type Department Care Team (Late st Contact Info) Description 08/04/2016 External Results Hematology [place] [address] Alexandrea Greenwood RN Neutropenia, unspecified type Social [...] 4:15 PM EDT Office Visit Dermatology at [place] [address] [place] [address] Marek Bonilla MD [address], [place] [address] documented as of this encounter Procedures Procedure [...] type documented in this encounter Care Teams Pad Cutter Relationship Specialty Start Date End Date Deborah Quiroga, LIFE TEACHER PCP - General Family Medicine 03/24/16 02/04/23 documented as of this encounter
--- OUTSIDE RECORDS SUMMARY | 2024-03-23 14:04 | XMS_ITS | Encounter Summary ---
Author Organization [facility] Address [facility] [place] [address] Care Team Providers Care Paperhanger Assistant Name Role Phone Deborah Quiroga ANURAG Primary Care Provider [phone] Encounter Details Date Type Department Care Team (Late st Contact Info) Description 07/13/2016 External Results [place] [phone] Provider, Scanning Social History Tobacco Use Types [...] 4:15 PM EDT Office Visit Dermatology at [place] [address] [place] [address] Marek Bonilla MD [address], [place] [address] documented as of this encounter Procedures Procedure Name Priority Date/Time Associated Diagnosis Comments SURGICAL PATHOLOGY SCAN Routine 07/13/2016 documented in this encounter Results * Scan Doc: Surgical Pathology (07/13/2016) Nitesh Pina Jr., MD MEDIA MGR SCAN EXT O RDR/RSLT documented in this encounter Visit Diagnoses Not on filedocumented in this encounter Care Teams Paperhanger Assistant Relationship Specialty Start Date End Date Deborah Quiroga APRN PCP - General Family Medicine 03/24/16 02/04/23 documented as of this encounter
--- OUTSIDE RECORDS SUMMARY | 2024-03-23 14:04 | XMS_ITS | Encounter Summary ---
[place] [address] Care Team Providers Care Research Interviewer Name Role Phone Deborah Quiroga ANURAG Primary Care Provider [phone] Reason for Visit * Reason Onset Date Comments Medical Care Coordination 07/31/2016 Encounter Details Date Type Department Care Team (Late st Contact Info) Description 07/31/2016 Telephone Hematology [place] [address] Alexandrea Greenwood RN Medical Care Coordination Social [...] 08/04/15 RN spoke with Aydee of the [facility] lab who states they can draw pt's cbc on 08/04/15, RN faxed lab req to [phone] at Aydee's request. RN instructed pt on Dr. Borjas's direction above. Pt verbalized understanding. documented in this encounter Plan of Treatment Upcoming Encounters Date Type Department Care Team (Late st Contact Info) Description 03/01/2025 4:15 PM EDT Office Visit Dermatology at [place] [address] [place] [address] Marek Bonilla MD [address], [place] [address] documented as of this encounter Visit Diagnoses Not on filedocumented in this encounter Care Teams Research Interviewer Relationship Specialty Start Date End Date Deborah Quiroga APRN PCP - General Family Medicine 03/24/16 02/04/23 documented as of this encounter
--- OUTSIDE RECORDS SUMMARY | 2024-03-23 14:04 | XMS_ITS | Encounter Summary ---
Author Organization [facility] Address [facility] [place] [address] Care Team Providers Care Instructor Correspondence School Name Role Phone Ashley Quirogazac Shields APRN Primary Care Provider [phone] Encounter Details Date Type Department Care Team (Latest Contact Info) Description 06/19/2016 - 06/19/2016 11:59 PM EST Hospital Encounter [place] [address] Nitesh Pina Jr., MD [address] [place] [address] Pain Discharge Disposition: Home Social History Tobacco [...] 4:15 PM EDT Office Visit Dermatology at [place] [address] [place] [address] Marek Bonilla MD [address], [place] [address] documented as of this encounter Procedures Procedure Name Priority Date/Time Associated Diagnosis Comments FILM LIBRARY STORAGE ONLY CT CHEST ABDOMEN PELVIS Routine 06/19/2016 12:00 AM EST Pain documented in this encounter Results * Film Library- Storage Only CT Chest Abdomen Pelvis (06/19/2016 12:00 AM EST) Narrative [facility] - 06/20/2016 8:53 AM EST This exam is for storage only and is auto-finalizing. Nitesh Pina Jr., MD IMG FILM LIBRARY ORD ERABLES [place], [place] documented in this encounter Visit Diagnoses Diagnosis Pain Generalized pain documented in this encounter Care Teams Instructor Correspondence School Relationship Specialty Start Date End Date Deborah Quiroga APRN PCP - General Family Medicine 03/24/16 02/04/23 documented as of this encounter
--- OUTSIDE RECORDS SUMMARY | 2024-03-23 14:04 | XMS_ITS | Encounter Summary ---
Author Organization [facility] [place] [address] Care Team Providers Care Senior Property Accountant Name Role Phone Junaid, Deborah Shields APRN Primary Care Provider [phone] Encounter Details Date Type Department Care Team (Latest Contact Info) Description 08/18/2016 4:40 PM EST Laboratory [place] [phone] Aortic valve stenosis, unspecified etiology Social History [...] 4:15 PM EDT Office Visit Dermatology at [place] [address] [place] [address] Marek Bonilla MD [address], [place] [address] documented as of this encounter Procedures Procedure [...] 4:50 PM EST) ABORH Type Recheck Completed [facility] Blood specimen (specimen) 08/18/2016 4:50 PM EST 08/18/2016 5:27 PM EST Narrative Resulting Agency Comment Spec In Lab Alirio Esparza MD BLOOD BANK LAB BETH SHANNONROMERO [facility] [place] [address] * Antibody screen (08/18/2016 4:50 PM EST) Ab Screen Interp Negative [facility] Expires at [id number] on: 09/24/2016 [facility] Comment: Corrected from 09/17/16 12:00 [Unknown] on 09/09/16 02:32 by Shireen Treviño Blood specimen (specimen) 08/18/2016 4:50 PM EST 08/18/2016 5:11 PM EST Narrative Resulting Agency Comment Spec In Lab Alirio Esparza MD BLOOD BANK LAB ORDSylvia ORTEGAROMERO [facility] [place] [address] * ABO/Rh Typing (08/18/2016 4:50 PM EST) ABORH Type B Pos [facility] Blood specimen (specimen) 08/18/2016 4:50 PM EST 08/18/2016 5:11 PM EST Narrative Resulting Agency Comment Spec In Lab Alirio Esparza MD BLOOD BANK LAB BETH ALEJO Lidia Organization Address City/State/ZIP Co de Phone Number [facility] [place] [address] * Basic Metabolic Panel (non-fasting) (08/18/2016 4:50 PM EST) Glucose 82 65 - 199 mg/dL [facility] Comment:Diabetes: >=200 mg/d L plus symptoms Blood Urea Nitrogen 12 8 - 18 mg/dL [facility] Carbon Dioxide 26 22 - 31 mmol/L [facility] Anion Gap 14 5 - 15 mmol/L [facility] Calcium 9.7 8.5 - 10.5 mg/dL [facility] Est Glomerular Filtration Rate >60 >=60 [facility] Comment: This estimated [...] the following links into your internet browser. [email or web address] Blood specimen (specimen) 08/18/2016 4:50 PM EST 08/18/2016 5:03 PM EST Narrative Resulting Agency Comment Spec In Lab Alirio Esparza MD CHEMISTRY ORDERABLE S Performing Organization Address City/State/[facility] Co de Phone Number [facility] [place] [address] documented in this encounter Visit Diagnoses Diagnosis Aortic valve stenosis, unspecified etiology documented in this encounter Care Teams Senior Property Accountant Relationship Specialty Start Date End Date Deborah Quiroga, HABILITATIVE INTERVENTIONIST PCP - General Family Medicine 03/24/16 02/04/23 documented as of this encounter
--- OUTSIDE RECORDS SUMMARY | 2024-03-23 14:04 | XMS_ITS | Encounter Summary ---
Author Organization [facility] Address [facility] [place] [address] Care Team Providers Care Sole Polisher Name Role Phone Debroah Quiroga APRN Primary Care Provider [phone] Reason for Visit * Reason Comments Schedule Office Case * Consultation (Routine) - Closed Specialty Diagnoses / Procedures Referred By Contac t Referred To Contact Hematology and Oncology Diagnoses Leukopenia Neutropenia LEUKOPENIA W/NEUTROPENIA Procedures TC PEGFILGRASTIM, 6MG, INJECTION LEUKOPENIA W/NEUTROPENIA Alirio Esparza MD [facility] CARDIOTH[place] [address] Mario Alberto Ramos Jr., MD [facility] [address] HEMATOLOGY [place] [address] Referral ID Status Reason Start Date Expiration Date V isits Requested Visits Authorized [id number] Closed Consult, Test & Treat 07/17/2016 07/17/2017 1 1 Encounter Details Date Type Department Care Team (Late st Contact Info) Description 06/09/2016 3:00 PM EST Office Visit [place]ematology [place] [address] Mario Alberto Ramos Jr., MD [facility] HEMATOLOGY [place] [address] Cyclical neutropenia Social History Tobacco Use Types [...] 06/09/2016 3:00 PM EST Hematology Outpatient Clinic [facility] Hematology Outpatient Consult Note CC: 60 year old woman with h/o worsening due for upcoming CT Surgery referred for work-up of incidentally found leukopenia with neutropenia on pre-op assessment. The patient comes to clinic alone.Available medical records were reviewed. HPI: Purniam is a 60-year-old woman referred by Dr. [...] Unknown See Comment Flow Cytometry Report Unknown [id number] ... HematoPathology: Flow Cytometry DIAGNOSIS 1. No [...] 4:15 PM EDT Office Visit Dermatology at [place] [address] [place] [address] Marek Bonilla MD [address], [place] [address] documented as of this encounter Procedures Procedure [...] (06/09/2016 4:53 PM EST) Flow Cytometry Report [id number] ?Location: The signing pathologist has (i) examined [...] Clinical Flow Cytometry Laboratory at [facility]. It has not been cleared [...] high complexity clinical laboratory testing. SPECIMEN PROCESSING [id number] Cells for immunophenotypic analysis were derived from peripheral blood. ??CD45 vs side scatter gating was utilized to identify a lymphoid analysis region that comprises approximately 49-51% of all cells. The following markers were assessed: CD2, CD3, CD4, CD5, CD7, CD8, CD10, CD16, CD19, CD45, CD56, CD57, kappa light chain, and lambda light chain. CLINICAL INFORMATION 60 yo female with neutropenia. LGL panel requested. [facility] 06/09/2016 4:53 PM EST Mario Alberto Ramos Jr., MD PATHOLOGY/CYTOLOGY O RDERABLES [facility] [place] [address] * Scan, Peripheral Blood (06/09/2016 4:53 PM EST) Pathologist [facility] Plat estimate Normal [facility] RBC Morphology Normal [facility] Blood specimen (specimen) 06/09/2016 4:53 PM EST 06/09/2016 5:00 PM EST Narrative Resulting Agency Comment Spec In Lab Mario Alberto Ramos Jr., MD HEMATOLOGY ORDERABLE S Performing Organization Address City/[facility]/ZIP Co de Phone Number [facility] [place] [address] * (ABNORMAL) Differential, Automated (06/09/2016 4:53 PM EST) [facility] Neutrophil % 27.7 % [facility] Neutrophil Absolute 0.48(Crit ical) 1.70 - 6.10 x10(3)/mc L [facility] Comment: Matches Previous Results.. This result has been called to NOT CALLED by Jesusita Argueta on 06 09 2016 at 1817, and has not been read back. MATCHES PREVIOUS RESULTS Lymph % 57.2 % [facility] Lymphocytes Abs 1.0 0.9 - 3.2 x10(3)/mc L [facility] Monocyte % 13.3 % [facility] Monocyte Abs 0.2(L) 0.3 - 0.9 x10(3)/mc L [facility] Eos % 0.6 % [facility] Eosinophils Abs 0.0 0.0 - 0.4 x10(3)/mc L [facility] Basophil % 1.2 % [facility] Baso Absolute 0.0 0.0 - 0.1 x10(3)/mc L [facility] Immature Gran % 0.00 % [facility] Comment: Immature granulocytes(IG's)percentage and absolute count will include metamyelocytes, myelocytes, and promyelocytes. Blood smears from CBCs yielding IG's will be scanned manually for concordance. If this scan disagrees with the automated IG or if promyelocytes are noted, a manual differential will be performed. Immature Gran Absolute 0.00 0.00 - 0.04 x10(3)/mc L [facility] Blood specimen (specimen) 06/09/2016 4:53 PM EST 06/09/2016 5:00 PM EST Narrative Resulting Agency Comment Spec In Lab Mario Alberto Ramos Jr., MD HEMATOLOGY ORDERABLE S Performing Organization Address City/State/[facility] Co de Phone Number [facility] [place] [address] * (ABNORMAL) Hemogram (06/09/2016 4:53 PM EST) White Blood Cell 1.7(Criti gabrielle) 4.0 - 9.5 x10(3)/mc L [facility] Red Blood Cell 3.92(L) 4.00 - 5.21 x10(6)/mc L [facility] Hemoglobin 12.4 11.7 - 15.5 gm/dL [facility] Hematocrit 36.7 35.7 - 45.8 % [facility] Mean Cell Volume 93.6 82.6 - 94.4 fL [facility] Mean Cell Hemoglobin 31.6 27.1 - 32.0 pg [facility] Mean Cell Hemoglobin Concentration 33.8 31.7 - 35.0 gm/dL [facility] Platelet 234 145 - 357 x10(3)/mc L [facility] RDW Standard Deviation 39.8 37.0 - 46.0 fL [facility] RDW coefficient of variation 11.8 11.5 - 14.1 % [facility] Mean Platelet Volume 8.6 7.6 - 12.9 fL [facility] NRBC% auto 0.0 % [facility] NRBC Absolute 0.000 0.000 - 0.000 x10(3)/mc L [facility] Blood specimen (specimen) 06/09/2016 4:53 PM EST 06/09/2016 5:00 PM EST Narrative Resulting Agency Comment Spec In Lab Mario Alberto Ramos Jr., MD HEMATOLOGY ORDERABLE S Performing Organization Address [facility] Co de Phone Number [facility] [place] [address] * Immunophenotyping Flow Cytometry (06/09/2016 4:53 PM EST) Immunophenotyping Flow See Comment [facility] Comment: When completed by the Pathologist, the Flow Cytometry Report ([id number]) will display under the Pathology Results section within [facility]. Specimen of unknown material (specimen) 06/09/2016 4:53 PM EST 06/09/2016 5:00 PM EST Narrative Resulting Agency Comment Spec In Lab Mario Alberto Ramos Jr., MD HEMATOLOGY ORDERABLE S Performing Organization Address City/[facility] Co de Phone Number [facility] [place] [address] documented in this encounter Visit Diagnoses Diagnosis Cyclical neutropenia Cyclic neutropenia documented in this encounter Care Teams Sole Polisher Relationship Specialty Start Date End Date Deborah Quiroga APRN PCP - General Family Medicine 03/24/16 02/04/23 documented as of this encounter
--- OUTSIDE RECORDS SUMMARY | 2024-03-23 14:04 | XMS_ITS | Encounter Summary ---
[place] [address] Care Team Providers Care Shift Manager Name Role Phone Deborah Quiroga ANURAG Primary Care Provider [phone] Encounter Details Date Type Department Care Team (Late st Contact Info) Description 09/11/2016 Orders Only Hematology [place] [address] Alexandrea Greenwood RN Social History [...] the original note were not included. N [facility] [phone] Date: 09/11/16 Patient Name: Purnima Thacker : 1955 Diagnosis: Neutropenia Referral to [site]: [facility] Orders: ? Growth factor: [x] Neulasta 6mg SQ injection x 1 on 09/16/16 Signature: Markel Borjas MD beeper # [id number] Co-signature [if needed]: documented in this encounter Plan of Treatment Upcoming Encounters Date Type Department Care Team (Late st Contact Info) Description 03/01/2025 4:15 PM EDT Office Visit Dermatology at [place] [address] [place] [address] Marek Bonilla MD [address], [place] [address] documented as of this encounter Procedures Procedure Name Priority Date/Time Associated Diagnosis Comments TRANSESOPHAGEAL ECHOCARDIOGRAM (GAVINO) Routine 09/22/2016 documented in this encounter Results * Transesophageal Echocardiogram (GAVINO) (09/22/2016) Anatomical Region Laterality Modality Other 09/22/2016 Narrative 09/22/2016 8:30 AM EST Procedure: ?Transesophageal Echocardiogram Patient: ?ANDREW ECHOLS M ? (Age): 1955(61y) Med Rec#: ? [id number] ?Sex: ?M ? Site Loc: ? [facility] ?Ht / Wt: ??(cm)/ (kg) ? Pt. Loc: ?OR ? Study Date: ?? 09/21/2016 ?Pt. Type: Tape: ? Referring: Alirio Francisco Reading: Henrik Yarbrough ([id number]) Move Coordinator: Jacobo Patel ([id number]) Interpreting Fellow: Jacobo Patel ([id number]) Diagnosis: *Aortic valve disorders (424.1) CPT Codes: *Echo GAVINO Full (38080) Indication: ?? AVR for severe Rhythm: ? [...] ? Mid-Inferior ?Normal ? Mid-Inferoseptal ?Normal ? [place]-Septal ? Normal ? [place]-Anterior ? Normal ? [place]-Lateral ?Normal ? [place]-Inferior ? Normal ? [place]-Tip ?Normal ? This report has been electronically signed by: Henrik Yarbrough M.D. ? 09/22/2016 08:30:41 Images reviewed and interpretation verified [facility] Procedure Note Henrik Yarbrough MD - 09/22/2016 Procedure: Transesophageal Echocardiogram Patient: ANDREW Mejias (Age): 1955(61y) Med Rec#: [id number] Sex: M Site Loc: [facility] Ht / Wt: (cm)/ (kg) Pt. Loc: OR Study Date: 09/21/2016 Pt. 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 09/22/2016 08:30:41 Images reviewed and interpretation verified [facility] Unknown ECHO ORDERABLES documented in this encounter Visit Diagnoses Not on filedocumented in this encounter Care Teams Shift Manager Relationship Specialty Start Date End Date Deborah Quiroga APRN PCP - General Family Medicine 03/24/16 02/04/23 documented as of this encounter
--- OUTSIDE RECORDS SUMMARY | 2024-03-23 14:04 | XMS_ITS | Encounter Summary ---
Author Organization [facility] [place] [address] Care Team Providers Care Manager Laboratory Name Role Phone Deborah Quiroga APRN Primary Care Provider [phone] Encounter Details Date Type Department Care Team (Late st Contact Info) Description 07/31/2016 External Results Hematology [place] [address] Alexandrea Greenwood RN Neutropenia, unspecified type Social [...] 4:15 PM EDT Office Visit Dermatology at [place] [address] [place] [address] Marek Bonilla MD [address] [place] [address] documented as of this encounter Procedures Procedure [...] documented in this encounter Care Teams Manager Laboratory Relationship Specialty Start Date End Date Deborah Quiroga, PAPER MACHINE OPERATOR PCP - General Family Medicine 03/24/16 02/04/23 documented as of this encounter
--- OUTSIDE RECORDS SUMMARY | 2024-03-23 14:04 | XMS_ITS | Encounter Summary ---
Author Organization [facility] [place] [address] Care Team Providers Care Staffing Branch Manager Name Role Phone Deborah Quiroga APRN Primary Care Provider [phone] Encounter Details Date Type Department Care Team (Late st Contact Info) Description 06/09/2016 Orders Only Hematology [place] [address] Nitesh Pina Jr., MD [facility] [address] [place] [address] Cyclical neutropenia Social History Tobacco Use Types [...] 4:15 PM EDT Office Visit Dermatology at [place] [address] [facility] [place] [id number] Marek Bonilla MD [address] [facility] [place] [address] documented as of this encounter Results * Immunophenotyping Flow Cytometry (06/09/2016 4:53 PM EST) Immunophenotyping Flow See Comment [facility] Comment: When completed by the Pathologist, the Flow Cytometry Report ([id number]) will display under the Pathology Results section within [facility]. Specimen of unknown material (specimen) 06/09/2016 4:53 PM EST 06/09/2016 5:00 PM EST Narrative Resulting Agency Comment Spec In Lab Nitesh Pina Jr., MD HEMATOLOGY ORDERABLE S Performing Organization Address City/State/[facility] Co de Phone Number [facility] [place] [address] documented in this encounter Visit Diagnoses Diagnosis Cyclical neutropenia Cyclic neutropenia documented in this encounter Care Teams Staffing Branch Manager Relationship Specialty Start Date End Date Deborah Quiroga, RESEARCH GEOLOGIST PCP - General Family Medicine 03/24/16 02/04/23 documented as of this encounter
--- OUTSIDE RECORDS SUMMARY | 2024-03-23 14:04 | XMS_ITS | Encounter Summary ---
Author Organization [facility] Address [facility] [place] [address] Care Team Providers Care Liner Checker Name Role Phone JunaidAshley hargrovezac Shields APRN Primary Care Provider [phone] Reason for Visit * Auth/Cert Specialty Diagnoses / Procedures Referred By Crispin t Referred To Contact Diagnoses AVS Procedures CARDIAC CATHETERIZATION Referral ID Status Reason Start Date Expiration Date Visits Re quested Visits Authorized [id number] 1 1 Encounter Details Date Type Department Care Team (Late st Contact Info) Description 06/03/2016 6:32 AM EDT - 06/03/2016 1:10 PM EDT Hospital Encounter [place] [id number] Anjum Oliveros II, MD [facility] [place] [address] Mario Alberto Escobedo MD [facility] [place] [address] Aortic valve stenosis, unspecified etiology; Nonrheumatic aortic [...] by your doctor, do not take any rudi-pdg-mokmisl medicinesor herbal preparations without first discussing this with your doctor or pharmacist. There is the possibility of side effects and interactions when these are combined. Follow Up Care Who to call with questions or problems If there are any questions or problems that you think might be related to your cardiac cath or angioplasty, contact the revenue inspector honeycomb blanket maker by calling [facility] at . * Patient Instructions* Felicia Corrigan - 06/03/2016 9:33 AM EDT Cardiology Instructions Call your doctor if: Chest pain, dyspnea, pain or swelling in legs occurs. If you have non-emergent questions between now and the time of your follow up appointments: -During 8am-5pm Wednesday through Wednesday call [phone] to speak with a nurse in the cardiology clinic -All other times call [phone] and ask to speak to the consulting solution manager honeycomb blanket maker. MEDICATIONS - restart your spironolactone, discontinue prior [...] Appointments: Primary care provider: Cardiology: Deborah Hahn, SAMPLE WORKER [phone] Follow up as planned or as needed. Dr. Esparza [phone] Other follow-up appointment: Hematology - Dr. Mario [...] 4:15 PM EDT Office Visit Dermatology at [place] [address] [place] [address] Marek Bonilla MD [address] [facility] [place] DERMATOLOGY [place], [place] [id number] documented as of this encounter Procedures Procedure [...] Green Tube HOLD (06/03/2016 11:45 AM EDT) [facility] Green Hold Sample in lab. [facility] Blood specimen (specimen) Venous Draw / Unknown 06/03/2016 11:45 AM EDT 06/03/2016 12:12 PM EDT Mario Alberto Escobedo MD CHEMISTRY ORDERABLES Performing Organization Address [facility] Co de Phone Number [facility] [place] [address] * Methylmalonic acid, serum (06/03/2016 11:45 AM EDT) [facility] Methylmalonic Acid (NOVEMBER) 0.21 <=0.40 nmol/mL [facility] Comment: Test Performed by: [place] [address] Certified Performance Technologist: Raymond Chaudhry II, M.D., Ph.D. Blood specimen (specimen) 06/03/2016 11:45 AM EDT 06/03/2016 1:57 PM EDT Narrative Resulting Agency Comment Spec In Lab Mario Alberto Escobedo MD LAB SEND OUT ORDERAB LES Performing Organization Address [facility] Co de Phone Number [facility] [place] [address] * Granulocyte Antibody (06/03/2016 11:45 AM EDT) [facility] Granulocyte Ab (NOVEMBER) Negative Not Applicable [facility] Comment: ADDITIONAL INFORMATION Method: Immunofluorescent Assay Performing Laboratory CLIA# [id number] This test was developed and its performance characteristics determined by [facility] in a manner consistent with CLIA requirements. This test has not been cleared or approved by the U.S. Food and Drug Administration. Test Performed by: [facility] - [address] [address] Certified Performance Technologist: Raymond Chaudhry II, M.D., Ph.D. Blood specimen (specimen) 06/03/2016 11:45 AM EDT 06/03/2016 1:57 PM EDT Narrative Resulting Agency Comment Spec In Lab Mario Alberto Escobedo MD LAB SEND OUT ORDERAB LES Performing Organization Address [facility] Co de Phone Number [facility] [place] [address] * TSH (06/03/2016 11:45 AM EDT) Thyroid Stimulating Hormone 2.18 0.27 - 4.20 mcIU/mL [facility] Blood specimen (specimen) 06/03/2016 11:45 AM EDT 06/03/2016 12:11 PM EDT Narrative Resulting Agency Comment Spec In Lab Mario Alberto Escobedo MD CHEMISTRY ORDERABLES Performing Organization Address [facility] Co de Phone Number [facility] [place] [address] * Homocysteine Total, Plasma (06/03/2016 11:45 AM EDT) Homocystine 9 <=15 mcmol/L [facility] Blood specimen (specimen) 06/03/2016 11:45 AM EDT 06/03/2016 12:11 PM EDT Narrative Resulting Agency Comment Spec In Lab Mario Alberto Escobedo MD CHEMISTRY ORDERABLES Performing Organization Address [facility] Co de Phone Number [facility] [place] [address] * Folate, serum (06/03/2016 11:45 AM EDT) Folate >20.0 4.8 - 24.2 ng/mL [facility] Blood specimen (specimen) 06/03/2016 11:45 AM EDT 06/03/2016 12:04 PM EDT Narrative Resulting Agency Comment Spec In Lab Mario Alberto Escobedo MD CHEMISTRY ORDERABLES Performing Organization Address City/[facility] Co de Phone Number [facility] [place] [address] * (ABNORMAL) Sedimentation rate (06/03/2016 11:45 AM EDT) Pathologist [facility] Sedimentation Rate Automated 41(H) 0 - 20 mm/hr [facility] Blood specimen (specimen) 06/03/2016 11:45 AM EDT 06/03/2016 12:04 PM EDT Narrative Resulting Agency Comment Spec In Lab Mario Alberto Escobedo MD HEMATOLOGY ORDERABLE S Performing Organization Address [facility] Co de Phone Number [facility] [place] [address] * Lactate Dehydrogenase (06/03/2016 11:45 AM EDT) Lactate Dehydrogenase 164 110 - 220 unit/L [facility] Blood specimen (specimen) 06/03/2016 11:45 AM EDT 06/03/2016 12:11 PM EDT Narrative Resulting Agency Comment Spec In Lab Mario Alberto Escobedo MD CHEMISTRY ORDERABLES Performing Organization Address [facility] Co de Phone Number [facility] [place] [address] * Comprehensive metabolic panel (non-fasting) (06/03/2016 11:45 AM EDT) Glucose 90 65 - 199 mg/dL [facility] Comment:Diabetes: >=200 mg/d L plus symptoms Blood Urea Nitrogen 11 8 - 18 mg/dL [facility] Creatinine 0.83 0.70 - 1.20 mg/dL [facility] Comment: Please note that the pediatric reference intervals supplied above were not validated at [facility]. Results from pediatric patients should be interpreted in conjunction to the patient's age, height and muscle mass. Sodium 143 135 - 145 mmol/L [facility] Potassium 4.0 3.5 - 5.0 mmol/L [facility] Comment: Please note: ??Patients with WBC >100,000 may have falsely elevated Potassium levels. ??For accurate Potassium quantification in these patients send serum separator tube (gold top) for subsequent determinations. ??Contact the Clinical Chemistry Laboratory if there are any questions. Chloride 104 98 - 107 mmol/L [facility] Carbon Dioxide 25 22 - 31 mmol/L [facility] Anion Gap 14 5 - 15 mmol/L [facility] Calcium 9.2 8.5 - 10.5 mg/dL [facility] Protein, Total 7.0 6.1 - 8.0 gm/dL [facility] Albumin 4.0 3.2 - 5.2 gm/dL [facility] Aspartate Aminotransferase 17 0 - 30 unit/L [facility] Alanine Aminotransferase 9 0 - 30 unit/L [facility] Alkaline Phosphatase 81 40 - 104 unit/L [facility] Bilirubin, Total 0.4 0.2 - 1.3 mg/dL [facility] Bilirubin, Direct 0.1 0.0 - 0.3 mg/dL [facility] Est Glomerular Filtration Rate >60 [...] the following links into your internet browser. [email or web address] Blood specimen (specimen) 06/03/2016 11:45 AM EDT 06/03/2016 12:11 PM EDT Narrative Resulting Agency Comment Spec In Lab Mario Alberto Escobedo MD CHEMISTRY ORDERABLES [facility] [place] [address] documented in this encounter Visit Diagnoses Diagnosis [...] Hernandez) documented in this encounter Care Teams Liner Checker Relationship Specialty Start Date End Date Deborah Quiroga, SAMPLE WORKER PCP - General Family Medicine 03/24/16 02/04/23 documented as of this encounter
--- OUTSIDE RECORDS SUMMARY | 2024-03-23 14:04 | XMS_ITS | Encounter Summary ---
[place] [address] Care Team Providers Care Mechanism Inspector Name Role Phone Ashley Quirogazac Shields APRN Primary Care Provider [phone] Reason for Visit * Auth/Cert Specialty Diagnoses / Procedures Referred By Crispin t Referred To Contact Diagnoses Aortic stenosis Procedures PRO REPLACE AORT VALV, PROSTH VALV @REPLACE AORTIC VALVE, OPEN, W\CPB, W\PROSTHETIC VALVE (WRVU 41.32) Referral ID Status Reason Start Date Expiration Date Visits Re quested Visits Authorized [id number] 1 1 Encounter Details Date Type Department Care Team (Late st Contact Info) Description 09/21/2016 7:30 AM EST - 09/21/2016 12:04 PM EST Surgery [place] [address] Alirio Esparza MD @REPLACE AORTIC VALVE, OPEN, [...] Patient Age: 61 y.o. Birthdate: 1955 Language: Turkmen Race: White Ethnicity: Not nor Admit Date: 09/21/2016 Discharge Date: 09/25/2016 Attending Physician: Alirio Esparza MD Follow-up Recommendations for Providers: Please continue routine management of cardiovascular risk factors including blood pressure, lipids,glucose, etc. Please note any changes to medications. Patient to follow-up with PCP, Deborah Quiroga APRN, in 1-2 weeks. Patient to follow-up with Nipple Threader, Dr. Antelmo Burrell, in two weeks. Patient to follow-up with Cardiac Surgery, Dr. Alirio Esparza, to be scheduled for before 10/19/2016, with CXR, EKG, and Echo. Inpatient Provider Contact Information: [facility] Section of Cardiac Surgery [facility] [address] FAX [phone] Discharge Diagnoses (Hospital Problems) Primary Diagnoses: Secondary [...] Hospital Course: Purnima Thacker was admitted to [facility] on 09/21/2016 via the Same Day [...] Alirio Esparza and/or the Cardiac Surgery Physician Photofinishing Laboratory Worker Team may be reached at . Antibiotic prophylaxis: You will need to take antibiotics prior to many invasive tests and treatments, such as dental cleaning, which should be done every 6 months. Your primary care physician or your dentist can prescribe this medication. Please refer to the card with the [employer] Guidelines for more information. You have been provided with 3 copies of this card. Keep one for your self. Give one to your primary care physician and one to your dentist. Please refer to the [employer] Guidelines for more information. Good [...] Dr. Alirio Jones. You may use a [place] Track or treadmill but avoid any pulling [...] friends, go to a movie, go to congregation, etc. Heavy activities: No hunting, skiing, jogging, [...] should resume a low fat, low cholesterol, [employer] Diet. Driving: No driving until [...] the outpatient Phase 2 Cardiac Rehabilitation at [facility]. The patient agrees to a referral to this program. The referral will be sent at discharge and the patient should be contacted by the program within 1- 2 weeks from discharge. Future Appointments and Orders Future Appointments Provider Department Dept Phone 11/20/2016 11:30 AM Markel Borjas MD [facility] [phone] Future Orders Complete By Expires Echocardiogram Transthoracic([facility]eb) [CCQ306 Custom] 10/18/2016 (Approximate) 09/18/2017 Process Instructions: If the Echocardiogram is to be PERFORMED in a DH location other than [facility]--STOP and order [id number], Echocardiogram South/External. Scheduling Instructions: Questions: Is a Bubble Study requested?: No Does the patient have Congenital Heart Disease?: No Does patient require sedation?: None GA rationale: Should this service be billed to the research sponsor?: EKG 12 Lead [EKG1 Custom] 10/18/2016 (Approximate) 09/25/2017 Process Instructions: Scheduling Instructions: Questions: Which DH location will this be performed?: [facility] Is a rhythm strip needed?: No If EKG Reason is Pre-op Evaluation, indicate diagnosis for surgery.: Should this service be billed to the research sponsor?: XR Chest PA & Lateral (Generic) [35714 [id number] Custom] 10/18/2016 (Approximate) 09/25/2017 Process Instructions: Scheduling Instructions: Questions: Where will study be performed?: [facility]- Radiology Portable exam?: No Reason for exam and clinical history: s/p AVReplacement, patch annuloplasty 1 month f/u Other pertinent information: Stat read required?: Date of injury if applicable: Requested Time: Referral to Cardiac Rehab [WGO304 Custom] As directed Process Instructions: If no progress note charted, please enter Clinical details in comments. Scheduling Instructions: Questions: My question or request is: s/p AVR. Cardiac rehab at [facility] Referral to Home Health - at DISCHARGE [JBW3882 CPT(R)] As directed Process Instructions: Scheduling Instructions: Comments: DOCUMENTATION FOR VNA SERVICES (INCLUDING THOSE PATIENTS WITH MEDICARE COVERAGE REQUIRING HOME VNA SERVICES AND/OR HOSPICE SERVICES) PATIENT'S LOCATION: Purnimakary Gallego[address] [address] (home) No relevant phone numbers on file. Straddle Bug's Name: self In discussion with the attending physician, it is certified that this patient is under their care and that they, or a Nurse Practitioner, or Physician Photofinishing Laboratory Worker who is working directly with them, hada [...] for services as follows: HOME HEALTH AGENCY: [facility] PHONE: [phone] FAX: [phone] RN orders: Cardiopulmonary assessment, incisional assessment, assess [...] issues please call the Cardiac SurgeryOffice at [phone] FOR MEDICARE ONLY: In discussion with the [...] noted. Questions: Agency name and contact information: [facility] Patient location post discharge: home What services are requested: Registered Nurse Physical Therapy Occupational Therapy Start date: Responsible MD post discharge contact info: Arrangements for VNA/home care: As above. VN RN OR PCP TO PLEASE REMOVE CHEST TUBE SUTURES ON OR AFTER 09/30/16 Signed: Crispin Aranda PA-C 09/25/2016 [facility] Section of Cardiac Surgery [facility] [address] FAX [phone] Date: 09/25/2016 CC: ANURAG Alford Caryn E, APRN [address] [place] [address] documented in this encounter Discharge Instructions * [...] Alirio Esparza and/or the Cardiac Surgery Physician Photofinishing Laboratory Worker Team may be reached at . Antibiotic prophylaxis: You will need to take antibiotics prior to many invasive tests and treatments, such as dental cleaning, which should be done every 6 months. Your primary care physician or your dentist can prescribe this medication. Please refer to the card with the [employer] Guidelines for more information. You have been provided with 3 copies of this card. Keep one for your self. Give one to your primary care physician and one to your dentist. Please refer to the [employer] Guidelines for more information. Good [...] Dr. Alirio Jones. You may use a [place] Track or treadmill but avoid any pulling [...] friends, go to a movie, go to congregation, etc. Heavy activities: No hunting, skiing, jogging, [...] should resume a low fat, low cholesterol, [employer] Diet. Driving: No driving until [...] the outpatient Phase 2 Cardiac Rehabilitation at [facility]. The patient agrees to a referral [...] PM EST Cardiac Surgery Progress Note: ID: [id number] S/p AVR, patch aortoplasty POD#2. PMH of [...] Gas) No results found for: PHART, PO2ART, [id number] Assessment/Plan: TPW out this am. (+) BM. [...] Signed: Crispin Aranda PA-C 09/24/2016 Team pager: [phone]; [phone] [facility] Section of Cardiac Surgery * Leonor Henson S, BRIDGE TEACHER - 09/23/2016 10:48 AM EST Cardiac Surgery Progress Note: ID: [id number] s/p AVR, patch aortoplasty POD#2. PMH of [...] Gas) No results found for: PHART, PO2ART, [id number] Assessment/Plan: s/p AVR, patch aortoplasty POD#2. PMH of Neutropenia, HLD, HTN, Depression, obesity, . Transferred from [facility] yesterday and doing well. Pathway. Will [...] Surgeon on rounds. Signed: Leonor Henson APRN [facility] Section of Cardiac Surgery Date: 09/23/2016 * Nico Palacios PA - 09/22/2016 9:56 AM EST Cardiac Surgery Progress Note: ID: [id number] s/p AVR, patch aortoplasty POD#1. PMH of [...] NT, ND, soft. Ext: Moves all extremities. Hyder, well perfused. Incisions: C/D/I Tubes/Lines/Drains: PIV, richi, [...] Attending Surgeon on rounds. Signed: EKATERINA KIM [facility] Section of Cardiac Surgery Date: 09/22/2016 [...] left pleural effusion. T/L/D Al ETT CVL [place] CT Pacing wires ASSESSMENT, MANAGEMENT, and DECISION [...] Outcome (s) achieved Date Met: 09/25/16 09/25/16 8708 Coping/Psychosocial Plan Of Care Reviewed With patient [...] health, home with outpatient services Lalitha Cohen [facility] Pager: [phone] Inpatient Physical Therapy Patient status, treatment interventions, and goals discussed with student. I am in agreement with all details and associated flowsheet rows as documented and was present for all aspects of the patient treatment session. Nery Jaramillo, CANDY Pager [phone] Problem: Acute Rehab Services Goal & Intervention Plan Goal: Bed Mobility Goal Stand Alone Therapy Goal Outcome: Ongoing (Interventions Implemented as Appropriate) 09/22/16 1611 09/25/16 0947 Bed Mobility Goal Bed Mobility Goal, Time to Achieve 4 days -- Bed Mobility Goal, Activity Type scoot/bridge;supine to sit/sit to supine -- Bed Mobility Goal, [place] Level independent -- Bed Mobility Goal, Additional [...] Achieve 4 days -- Gait Training Goal, [place] Level independent -- Gait Training Goal, Distance [...] [facility] Pager: [phone] Inpatient Physical Therapy Patient status, treatment interventions, and goals discussed with student. I am in agreement with all details and associated flowsheet rows as documented and was present for all aspects of the patient treatment session. Nery Jaramillo, AUTO TRANSMISSION TECHNICIAN Pager [phone] Problem: Acute Rehab Services Goal & Intervention Plan Goal: Bed Mobility Goal Stand Alone Therapy Goal Outcome: Ongoing (Interventions Implemented as Appropriate) 09/22/16161009/23/161411 Bed Mobility Goal Bed Mobility Goal, Time to Achieve 4 days -- Bed Mobility Goal, Activity Type scoot/bridge;supine to sit/sit to supine -- Bed Mobility Goal, [place] Level independent -- Bed Mobility Goal, Additional [...] Achieve 4 days -- Gait Training Goal, [place] Level independent -- Gait Training Goal, Distance [...] days -- Transfer Training Goal, Activity Type ygr-tl-hryxv/mvwzc-dm-jhm;nok-aa-xvpby/xdrhf-or-eod -- Transfer Train Goal, [place] Level independent -- Transfer Training Goal, Additional Goal abides sternal precautions -- Transfer Training Goal, Outcome -- goal met * Consult Note - Jana Crenshaw RN - 09/23/2016 9:41 AM EST [facility] Purnima Thacker was seen today regarding participation in the outpatient Phase 2 Cardiac Rehabilitation at [facility]. The patient agrees to a referral [...] Another Service: (cardiac rehab) NICOLE HERNANDEZ, PT Pager:[phone] Inpatient Physical Therapy Problem: Acute Rehab Services Goal & Intervention Plan Goal: Bed Mobility Goal Stand Alone Therapy Goal Outcome: Ongoing (Interventions Implemented as Appropriate) 09/22/161610 Bed Mobility Goal Bed Mobility Goal, Time to Achieve 4 days Bed Mobility Goal, Activity Type scoot/bridge;supine to sit/sit to supine Bed Mobility Goal, [place] Level independent Bed Mobility Goal, Additional Goal able to abide sternal precautions during transfers Goal: Gait Training Goal Stand Alone Therapy Goal Outcome: Ongoing (Interventions Implemented as Appropriate) 09/22/161610 Gait Training Goal Gait Training Goal, Date Established 09/22/16 Gait Training Goal, Time to Achieve 4 days Gait Training Goal, [place] Level independent Gait Training Goal, Distance to Achieve ascend and descends 2 steps independently Goal: Goal Transfer Training Stand Alone Therapy Goal Outcome: Ongoing (Interventions Implemented as Appropriate) 09/22/161610 Goal Transfer Training Transfer Training Goal, Time to Achieve 4 days Transfer Training Goal, Activity Type tke-ns-hahej/anacr-qs-ras;rfv-uk-niijl/ldlur-th-gwd Transfer Train Goal, [place] Level independent Transfer Training Goal, Additional Goal [...] of completing AD's at home, chooses her pzjxar-qp-ggc, Martha Thacker (home) for her DPOAH, 2nd choice in friend, Nitesh Rad, [place], [place] Current Coping/Education/Information Needs: patient sitting up [...] close by, Rashad & Raymond, and her ahwrvy-pq-jxj Martha Thacker who she has chosen to be her DPOAH. Also has a friend Nitesh Leroy who lives in [place], [place], also her DPOAH choice. Behavioral Health History: none on file in e[facility] Substance Use/Abuse: none on file in e[facility] Other Pertinent/Service Specific Information: none Health/Prescription Coverage: Primary Insurance: [employer] Secondary Insurance: none Prescription Coverage: yes, per patient no issues Preferred Pharmacy: ?? Other: none Primary Care Provider: Deborah Quiroga, BRIDGE TEACHER [phone] Patient/Caregiver Goals of Treatment: per medical team recommendations at discharge for CT surgery Potential Needs for Transition of Care: Rehab/SNF: TBD Home Health: TBD DME: no Dialysis: no Community Resources: non3 Transportation: ride home with a friend Other: none Anticipated Barriers to Discharge/Special Considerations: none anticipated at this time Plan: patient will need VNA services at discharge. The patient/senior account representative has been provided a list of Home Health Agencies/DME vendors which servetheir preferred geographic area. A letter describing our affiliations was reviewed with them and they were educated about their right to choose where referrals are placed. Patient requests referral to: [facility]. PHONE: [phone] FAX: [phone] Expected date of discharge: Fri/Sat? CM called VNA to confirm referral, talked with VALDO Bunn/intake who stated she was familiar w/patient & would monitor her progress through curaspan. Referral routed to the Fireworks Display Specialist for matching with agency/vendor and to provide any required information. A member of the Care Management team will continue to monitor progress, follow for continuity of care and assist with transition of care planning. Amanda Moreno RN Pager: [phone] * Op Note - Alirio Esparza MD - 09/21/2016 12:53 PM EST 09/23/2016 Purnima Thacker 1955 [id number] Preoperative Diagnosis: Symptomatic aortic stenosis Postoperative Diagnosis: Symptomatic aortic stenosis Procedure: Aortic valve replacement: Bovine Pericardial 25 mm Surgeon: Alirio Esparza M.D. Photofinishing Laboratory Worker: Philip BALL Anesthesia: General endotracheal anesthesia Drains: [...] applied. The patient was transported to the [facility] on levo. All counts were correct. [...] Operative Note Patient Name: Purnima Thacker : [id number] MR#: [id number] Case Date: 09/21/2016 Surgeon: Surgeon(s) and Role: * Alirio Esparza MD - Primary * Nico Palacios PA - Physician Photofinishing Laboratory Worker Preoperative diagnosis: Postoperative diagnosis: Procedure(s) (LRB): @REPLACE [...] 4:15 PM EDT Office Visit D[facility] [place] [address] [place] [address] Marek Bonilla MD [address], [place] [address] Scheduled Orders Name Type Priority Associated Diagnoses [...] DEVICES SCAN 09/26/2016 12:00 AM EST AUTOMOTIVE QUALITY MANAGER SCAN 09/26/2016 12:00 AM EST POTASSIUM [...] EXT O RDR/RSLT * SCAN DOC: AUTOMOTIVE QUALITY MANAGER (09/26/2016 12:00 AM EST) Anatomical Region Laterality Modality Other Narrative 09/26/2016 12:00 AM EST Ordered by an unspecified provider. Scanning Provider MEDIA MGR SCAN EXT O RDR/RSLT * Potassium (09/25/2016 4:32 AM EST) Potassium 4.4 3.5 - 5.0 mmol/L [facility] [...] MD CHEMISTRY ORDERABLE S Performing Organization Address [facility] Co de Phone Number [facility] [place] [address] * (ABNORMAL) Differential, Automated (09/24/2016 9:56 AM EST) Neutrophil % 76.8 % [facility] Neutrophil Absolute 7.79(H) 1.70 - 6.10 x10(3)/mc L [facility] Lymph % 11.1 % [facility] Lymphocytes Abs 1.1 0.9 - 3.2 x10(3)/mc L [facility] Monocyte % 8.5 % [facility] Monocyte Abs 0.9 0.3 - 0.9 x10(3)/mc L [facility] Eos % 0.5 % [facility] Eosinophils Abs 0.0 0.0 - 0.4 x10(3)/mc L [facility] Basophil % 0.2 % [facility] Baso Absolute 0.0 0.0 - 0.1 x10(3)/mc L [facility] Immature Gran % 2.90 % [facility] Comment: Immature granulocytes(IG's)percentage and absolute count will include metamyelocytes, myelocytes, and promyelocytes. Blood smears from CBCs yielding IG's will be scanned manually for concordance. If this scan disagrees with the automated IG or if promyelocytes are noted, a manual differential will be performed. Immature Gran Absolute 0.29(H) 0.00 - 0.04 x10(3)/mc L [facility] Blood specimen (specimen) 09/24/2016 9:56 AM EST 09/24/2016 10:04 AM EST Narrative Resulting Agency Comment Spec In Lab Alirio Esparza MD HEMATOLOGY ORDERABL ES Performing Organization Address [facility]/ZIP Co de Phone Number [facility] [place] [address] * (ABNORMAL) Hemogram (09/24/2016 9:56 AM EST) White Blood Cell 10.1(H) 4.0 - 9.5 x10(3)/mc L [facility] Red Blood Cell 2.87(L) 4.00 - 5.21 x10(6)/mc L [facility] Hemoglobin 9.4(L) 11.7 - 15.5 gm/dL [facility] Hematocrit 28.3(L) 35.7 - 45.8 % [facility] Mean Cell Volume 98.6(H) 82.6 - 94.4 fL [facility] Mean Cell Hemoglobin 32.8(H) 27.1 - 32.0 pg [facility] Mean Cell Hemoglobin Concentration 33.2 31.7 - 35.0 gm/dL [facility] Platelet 141(L) 145 - 357 x10(3)/mc L [facility] RDW Standard Deviation 45.0 37.0 - 46.0 [facility] RDW coefficient of variation 12.6 11.5 - 14.1 % [facility] Mean Platelet Volume 9.4 7.6 - 12.9 fL [facility] NRBC% auto 1.1 % [facility] NRBC Absolute 0.110(H) 0.000 - 0.000 x10(3)/mc L [facility] Blood specimen (specimen) 09/24/2016 9:56 AM EST 09/24/2016 10:04 AM EST Narrative Resulting Agency Comment Spec In Lab Alirio Esparza MD HEMATOLOGY ORDERABL ES Performing Organization Address City/[facility]/ZIP Co de Phone Number [facility] [place] [address] * (ABNORMAL) Basic Metabolic Panel (non-fasting) (09/24/2016 9:56 AM EST) Glucose 111 65 - 199 mg/dL [facility] Comment:Diabetes: >=200 mg/d L plus symptoms Blood Urea Nitrogen 23(H) 8 - 18 mg/dL [facility] Comment:result rechecked-ART Creatinine 0.89 0.70 - 1.20 mg/dL [facility] Comment: Please note that the pediatric reference intervals supplied above were not validated at [facility]. Results from pediatric patients should be interpreted in conjunction to the patient's age, height and muscle mass. Sodium 138 135 - 145 mmol/L [facility] Potassium 4.2 3.5 - 5.0 mmol/L [facility] Comment: Please note: ??Patients with WBC >100,000 may have falsely elevated Potassium levels. ??For accurate Potassium quantification in these patients send serum separator tube (gold top) for subsequent determinations. ??Contact the Clinical Chemistry Laboratory if there are any questions. Chloride 98 98 - 107 mmol/L [facility] Carbon Dioxide 26 22 - 31 mmol/L [facility] Anion Gap 14 5 - 15 mmol/L [facility] Calcium 9.1 8.5 - 10.5 mg/dL [facility] Est Glomerular [...] the following links into your internet browser. [email or web address] Blood specimen (specimen) 09/24/2016 9:56 AM EST 09/24/2016 10:04 AM EST Narrative Resulting Agency Comment Spec In Lab Alirio Esparza MD CHEMISTRY ORDERABLE S [facility] [place] [address] * XR Chest PA & Lateral (Generic) [...] EST) Potassium 4.5 3.5 - 5.0 mmol/L [facility] [...] MD CHEMISTRY ORDERABLE S Performing Organization Address [facility]/ZIP Co de Phone Number [facility] [place] [address] * POCT Glucose (09/22/2016 8:17 AM EST) Glucose, POC 131 65 - 199 mg/dL [facility] Comment: Supplemental ranges: <140 mg/dL before meals <180 mg/dL all other times of the day Blood specimen (specimen) 09/22/2016 8:17 AM EST 09/22/2016 8:17 AM EST Alirio Esparza MD POINT OF CARE TEST ORDERABLES Performing Organization Address [facility] Co de Phone Number [facility] [place] [address] * POCT Glucose (09/22/2016 4:01 AM EST) Glucose, POC 135 65 - 199 mg/dL [facility] Comment: Supplemental ranges: <140 mg/dL before meals <180 mg/dL all other times of the day Blood specimen (specimen) 09/22/2016 4:01 AM EST 09/22/2016 4:01 AM EST Alirio Esparza MD POINT OF CARE TEST ORDERABLES Performing Organization Address [facility] Co de Phone Number [facility] [place] [address] * Scan, Peripheral Blood (09/22/2016 4:00 AM EST) Plat estimate Normal [facility] RBC Morphology Abnormal [facility] Macrocyte 1-5 /HPF [facility] Plat, Giant Less than 1 /HPF [facility] Blood specimen (specimen) 09/22/2016 4:00 AM EST 09/22/2016 4:34 AM EST Narrative Resulting Agency Comment Spec In Lab Alirio Esparza MD HEMATOLOGY ORDERABL ES Performing Organization Address [facility]/ZIP Co de Phone Number [facility] [place] [address] * Electrolytes panel (09/22/2016 4:00 AM EST) Pathologist [facility] Sodium 145 135 - 145 mmol/L [facility] Potassium 4.4 3.5 - 5.0 mmol/L [facility] Comment: Please note: ??Patients with WBC >100,000 may have falsely elevated Potassium levels. ??For accurate Potassium quantification in these patients send serum separator tube (gold top) for subsequent determinations. ??Contact the Clinical Chemistry Laboratory if there are any questions. Chloride 107 98 - 107 mmol/L [facility] Carbon Dioxide 24 22 - 31 mmol/L [facility] Anion Gap 14 5 - 15 mmol/L [facility] Blood specimen (specimen) Venous Draw / Unknown 09/22/2016 4:00 AM EST 09/22/2016 4:34 AM EST Narrative Resulting Agency Comment Spec In Lab Alirio Esparza MD CHEMISTRY ORDERABLE S Performing Organization Address [facility]/ZIP Co de Phone Number [facility] [place] [address] * (ABNORMAL) Differential, Automated (09/22/2016 4:00 AM EST) Pathologist [facility] Neutrophil % 70.9 % [facility] Neutrophil Absolute 5.33 1.70 - 6.10 x10(3)/mc L [facility] Lymph % 9.1 % [facility] Lymphocytes Abs 0.7(L) 0.9 - 3.2 x10(3)/mc L [facility] Monocyte % 18.0 % [facility] Monocyte Abs 1.4(H) 0.3 - 0.9 x10(3)/mc L [facility] Eos % 0.0 % [facility] Eosinophils Abs 0.0 0.0 - 0.4 x10(3)/ L [facility] Basophil % 0.1 % [facility] Baso Absolute 0.0 0.0 - 0.1 x10(3)/ L [facility] Immature Gran % 1.90 % [facility] Comment: Immature granulocytes(IG's)percentage and absolute count will include metamyelocytes, myelocytes, and promyelocytes. Blood smears from CBCs yielding IG's will be scanned manually for concordance. If this scan disagrees with the automated IG or if promyelocytes are noted, a manual differential will be performed. Immature Gran Absolute 0.14(H) 0.00 - 0.04 x10(3)/[facility] Blood specimen (specimen) 09/22/2016 4:00 AM EST 09/22/2016 4:34 AM EST Narrative Resulting Agency Comment Spec In Lab Alirio Esparza MD HEMATOLOGY ORDERABL ES Performing Organization Address City/State/[facility] Co de Phone Number [facility] [place] [phone] * (ABNORMAL) Hemogram (09/22/2016 4:00 AM EST) White Blood Cell 7.5 4.0 - 9.5 x10(3)/ L [facility] Red Blood Cell 2.93(L) 4.00 - 5.21 x10(6)/ L [facility] Hemoglobin 9.2(L) 11.7 - 15.5 gm/dL [facility] Hematocrit 28.0(L) 35.7 - 45.8 % [facility] Mean Cell Volume 95.6(H) 82.6 - 94.4 fL [facility] Mean Cell Hemoglobin 31.4 27.1 - 32.0 pg [facility] Mean Cell Hemoglobin Concentration 32.9 31.7 - 35.0 gm/dL [facility] Platelet 161 145 - 357 x10(3)/ L [facility] RDW Standard Deviation 44.0 37.0 - 46.0 fL [facility] RDW coefficient of variation 12.6 11.5 - 14.1 % [facility] Mean Platelet Volume 9.3 7.6 - 12.9 fL [facility] NRBC% auto 0.3 % [facility] NRBC Absolute 0.020(H) 0.000 - 0.000 x10(3)/mc L [facility] Blood specimen (specimen) 09/22/2016 4:00 AM EST 09/22/2016 4:34 AM EST Narrative Resulting Agency Comment Spec In Lab Alirio Esparza MD HEMATOLOGY ORDERABL ES [facility] [place] [phone] * (ABNORMAL) Cardiac Enzymes (09/22/2016 4:00 AM EST) Troponin-T 0.13(H) <=0.03 ng/mL [facility] Comment: 0.03 ng/mL: Represents [...] consensus document of the Joint Society of Cardiology/[place] College [employer]iology Committee for the redefinition of myocardial infarction. ??Journal of the [place] College [employer] 2000; 36: 959-969] Creatine Kinase 338(H) 0 - 160 unit/L [facility] Blood specimen (specimen) 09/22/2016 4:00 AM EST 09/22/2016 4:34 AM EST Narrative Resulting Agency Comment Spec In Lab Alirio Esparza MD CHEMISTRY ORDERABLE S Performing Organization Address [facility] Co de Phone Number [facility] [place] [address] * (ABNORMAL) Glucose, fasting (09/22/2016 4:00 AM EST) Glucose Fasting 137(H) 65 - 99 mg/dL [facility] Comment: ?Fasting* Glucose Interpretive [...] of Diabetes Mellitus, Position Statement from the [place] [employer]. ??Diabetes Care, Volume 33, Supplement 1, Aug 2009 Blood specimen (specimen) 09/22/2016 4:00 AM EST 09/22/2016 4:34 AM EST Narrative Resulting Agency Comment Spec In Lab Alirio Esparza MD CHEMISTRY ORDERABLE S Performing Organization Address [facility] Co de Phone Number [facility] [place] [address] * (ABNORMAL) Creatinine (09/22/2016 4:00 AM EST) Creatinine 0.69(L) 0.70 - 1.20 mg/dL [facility] Comment: Please note that the pediatric reference intervals supplied above were not validated at [facility]. Results from pediatric patients should be interpreted in conjunction to the patient's age, height and muscle mass. Est Glomerular Filtration Rate >60 >=60 [facility] [...] the following links into your internet browser. [email or web address] Blood specimen (specimen) 09/22/2016 4:00 AM EST 09/22/2016 4:34 AM EST Narrative Resulting Agency Comment Spec In Lab Alirio Esparza MD CHEMISTRY ORDERABLE S Performing Organization Address [facility] Co de Phone Number [facility] [place] [address] * BUN (09/22/2016 4:00 AM EST) Blood Urea Nitrogen 10 8 - 18 mg/dL [facility] Blood specimen (specimen) 09/22/2016 4:00 AM EST 09/22/2016 4:34 AM EST Narrative Resulting Agency Comment Spec In Lab Alirio Esparza MD CHEMISTRY ORDERABLE S Performing Organization Address [facility] Co de Phone Number [facility] [place] [address] * POCT Glucose (09/21/2016 9:59 PM EST) Glucose, POC 146 65 - 199 mg/dL [facility] Comment: Supplemental ranges: <140 mg/dL before meals <180 mg/dL all other times of the day Blood specimen (specimen) 09/21/2016 9:59 PM EST 09/21/2016 9:59 PM EST Alirio Esparza MD POINT OF CARE TEST ORDERABLES Performing Organization Address City/[facility] Co de Phone Number [facility] [place] [address] * POCT Glucose (09/21/2016 7:26 PM EST) [facility] Glucose, POC 152 65 - 199 mg/dL [facility] Comment: Supplemental ranges: <140 mg/dL before meals <180 mg/dL all other times of the day Blood specimen (specimen) 09/21/2016 7:26 PM EST 09/21/2016 7:26 PM EST Alirio Esparza MD POINT OF CARE TEST ORDERABLES [facility] [place] [address] * POCT Glucose (09/21/2016 6:00 PM EST) [facility] Glucose, POC 146 65 - 199 mg/dL [facility] Comment: Supplemental ranges: <140 mg/dL before meals <180 mg/dL all other times of the day Blood specimen (specimen) 09/21/2016 6:00 PM EST 09/21/2016 6:00 PM EST Alirio Esparza MD POINT OF CARE TEST ORDERABLES [facility] [place] [address] * (ABNORMAL) BLOOD GAS 2 ARTERIAL (09/21/2016 4:42 PM EST) [facility] pH, Arterial 7.35(L) 7.35 - 7.45 [facility] PCO2, Arterial 48(H) 35 - 45 mmHg [facility] PO2, Arterial 108(H) 85 - 104 mmHg [facility] Bicarbonate, Arterial 26.0 20.0 - 26.0 mmol/L [facility] Base Excess, Arterial 0.5 -3.0 - 3.0 mmol/L [facility] Hgb Blood Gas 10.4(L) 11.7 - 15.5 gm/dL [facility] Oxyhemoglobin, Arterial 96.2 94.0 - 97.0 % [facility] Carboxyhemoglob in, Arterial 0.0 % [facility] Comment: Nonsmokers: 0.5-1.5% COHB Smokers: Variable, but usually less than 10% Toxic: 20-30% COHB Lethal: Greater than 60% COHB Methemoglobin, Arterial 0.7 <=1.5 % [facility] Na Whole Blood 139 135 - 145 mmol/L [facility] K Whole Blood 4.2 3.5 - 5.0 mmol/L [facility] Comment: Please note: Patients with WBC >100,000 may have falsely elevated Potassium levels. Contact the Clinical Chemistry Laboratory if there are any questions. ICa Whole Blood 1.13(L) 1.15 - 1.33 mmol/L [facility] Comment: Note: ??Total bilirubin higher than 20 mg/dL may lead to falsely low ionized calcium. CL Whole Blood 106 98 - 107 mmol/L [facility] Gluc Whole Bld 147 65 - 199 mg/dL [facility] Comment:Diabetes: >=200 mg/d L plus symptoms. Lactate WB 1.2 0.5 - 2.2 mmol/L [facility] FIO2 Art 40 % [facility] PF Ratio Art 270 [facility] Blood specimen (specimen) 09/21/2016 4:42 PM EST 09/21/2016 4:42 PM EST Alirio Esparza MD POINT OF CARE TEST ORDERABLES [facility] [place] [address] * POCT Glucose (09/21/2016 4:07 PM EST) Glucose, POC 150 65 - 199 mg/dL [facility] Comment: Supplemental ranges: <140 mg/dL before meals <180 mg/dL all other times of the day Blood specimen (specimen) 09/21/2016 4:07 PM EST 09/21/2016 4:07 PM EST Alirio Esparza MD POINT OF CARE TEST ORDERABLES Performing Organization Address [facility] Co de Phone Number [facility] [place] [address] * (ABNORMAL) Hemoglobin (09/21/2016 4:05 PM EST) Hemoglobin 9.9(L) 11.7 - 15.5 gm/dL [facility] Blood specimen (specimen) 09/21/2016 4:05 PM EST 09/21/2016 4:20 PM EST Narrative Resulting Agency Comment Spec In Lab Alirio Esparza MD HEMATOLOGY ORDERABL ES Performing Organization Address [facility] Co de Phone Number [facility] [place] [address] * Potassium (09/21/2016 4:05 PM EST) [facility] Potassium 4.6 3.5 - 5.0 mmol/L [facility] [...] MD CHEMISTRY ORDERABLE S Performing Organization Address [facility] Co de Phone Number [facility] [place] [address] * POCT Glucose (09/21/2016 2:52 PM EST) Glucose, POC 117 65 - 199 mg/dL [facility] Comment: Supplemental ranges: <140 mg/dL before meals <180 mg/dL all other times of the day Blood specimen (specimen) 09/21/2016 2:52 PM EST 09/21/2016 2:52 PM EST Alirio Esparza MD POINT OF CARE TEST ORDERABLES Performing Organization Address [facility] Co de Phone Number [facility] [place] [address] * POCT Glucose (09/21/2016 1:51 PM EST) Glucose, POC 108 65 - 199 mg/dL [facility] Comment: Supplemental ranges: <140 mg/dL before meals <180 mg/dL all other times of the day Blood specimen (specimen) 09/21/2016 1:51 PM EST 09/21/2016 1:51 PM EST Alirio Esparza MD POINT OF CARE TEST ORDERABLES Performing Organization Address [facility] de Phone Number [facility] [place] [address] * POCT Glucose (09/21/2016 12:54 PM EST) Glucose, POC 128 65 - 199 mg/dL [facility] Comment: Supplemental ranges: <140 mg/dL before meals <180 mg/dL all other times of the day Blood specimen (specimen) 09/21/2016 12:54 PM EST 09/21/2016 12:54 PM EST Alirio Esparza MD POINT OF CARE TEST ORDERABLES Performing Organization Address [facility] Co de Phone Number [facility] [place] [address] * EKG 12 Lead (09/21/2016 12:26 PM EST) Ventricular rate 87 BPM MUSE SYSTEM Atrial Rate 87 BPM MUSE SYSTEM P-R Interval 256 ms MUSE SYSTEM QRS Duration 90 ms MUSE SYSTEM Q-T Interval 406 ms MUSE SYSTEM QTC Calculated (Bezet) 488 ms MUSE SYSTEM Calculated P [place] 24 degrees MUSE SYSTEM Calculated R [place] 21 degrees MUSE SYSTEM Calculated T [place] -5 degrees MUSE SYSTEM INTERPRETATION Sinus rhythm with 1st degree A-V block Nonspecific T wave abnormality Prolonged QT Abnormal ECG When compared with ECG of 19-MAY-2016 11:43, [place] interval has increased T wave inversion now [...] course of the esophagus and below the [id number]. There is a right IJ PA catheter [...] the course of theesophagus and below the [id number]. There is a right IJ PA catheter [...] EST) pH, Arterial 7.41 7.35 - 7.45 [facility] PCO2, Arterial 42 35 - 45 mmHg [facility] PO2, Arterial 356(H) 85 - 104 mmHg [facility] Bicarbonate, Arterial 26.2(H) 20.0 - 26.0 mmol/L [facility] Base Excess, Arterial 1.6 -3.0 - 3.0 mmol/L [facility] Hgb Blood Gas 10.7(L) 11.7 - 15.5 gm/dL [facility] Oxyhemoglobin, Arterial 98.1(H) 94.0 - 97.0 % [facility] Carboxyhemoglob in, Arterial 0.3 % [facility] Comment: Nonsmokers: 0.5-1.5% COHB Smokers: Variable, but usually less than 10% Toxic: 20-30% COHB Lethal: Greater than 60% COHB Methemoglobin, Arterial 0.8 <=1.5 % [facility] Na Whole Blood 140 135 - 145 mmol/L [facility] K Whole Blood 3.8 3.5 - 5.0 mmol/L [facility] Comment: Please note: Patients with WBC >100,000 may have falsely elevated Potassium levels. Contact the Clinical Chemistry Laboratory if there are any questions. ICa Whole Blood 1.15(L) 1.15 - 1.33 mmol/L [facility] Comment: Note: ??Total bilirubin higher than 20 mg/dL may lead to falsely low ionized calcium. CL Whole Blood 106 98 - 107 mmol/L [facility] Gluc Whole Bld 135 65 - 199 mg/dL [facility] Comment:Diabetes: >=200 mg/d L plus symptoms. Lactate WB 2.2 0.5 - 2.2 mmol/L [facility] FIO2 Art 100 % [facility] PF Ratio Art 356 [facility] Blood specimen (specimen) 09/21/2016 12:20 PM EST 09/21/2016 12:20 PM EST Alirio Esparza MD POINT OF CARE TEST ORDERABLES Performing Organization Address City/State/[facility] Co de Phone Number [facility] [place] [address] * (ABNORMAL) BLOOD GAS 2 ARTERIAL (09/21/2016 10:54 AM EST) pH, Arterial 7.43 7.35 - 7.45 [facility] PCO2, Arterial 40 35 - 45 mmHg [facility] PO2, Arterial 297(H) 85 - 104 mmHg [facility] Bicarbonate, Arterial 26.0 20.0 - 26.0 mmol/L [facility] Base Excess, Arterial 1.6 -3.0 - 3.0 mmol/L [facility] Hgb Blood Gas 8.6(L) 11.7 - 15.5 gm/dL [facility] Oxyhemoglobin, Arterial 98.6(H) 94.0 - 97.0 % [facility] Carboxyhemoglob in, Arterial 0.5 % [facility] Comment: Nonsmokers: 0.5-1.5% COHB Smokers: Variable, but usually less than 10% Toxic: 20-30% COHB Lethal: Greater than 60% COHB Methemoglobin, Arterial 0.3 <=1.5 % [facility] Na Whole Blood 134(L) 135 - 145 mmol/L [facility] K Whole Blood 4.5 3.5 - 5.0 mmol/L [facility] Comment: Please note: Patients with WBC >100,000 may have falsely elevated Potassium levels. Contact the Clinical Chemistry Laboratory if there are any questions. ICa Whole Blood 1.16 1.15 - 1.33 mmol/L [facility] Comment: Note: ??Total bilirubin higher than 20 mg/dL may lead to falsely low ionized calcium. CL Whole Blood 104 98 - 107 mmol/L [facility] Gluc Whole Bld 240(H) 65 - 199 mg/dL [facility] Comment:Diabetes: >=200 mg/d L plus symptoms. Lactate WB 2.4(H) 0.5 - 2.2 mmol/L [facility] FIO2 Art 95 % [facility] Flow Art 0.7 LPM [facility] PF Ratio Art 313 [facility] Temp Art 36.7 Celsius [facility] Blood specimen (specimen) 09/21/2016 10:54 AM EST 09/21/2016 10:54 AM EST Alirio Esparza MD POINT OF CARE TEST ORDERABLES Performing Organization Address [facility] Co de Phone Number [facility] [place] [address] * Thrombin time (09/21/2016 10:50 AM EST) Thrombin Time 19 15 - 20 sec [facility] Comment: A prolongation in [...] MD HEMATOLOGY ORDERABLE S Performing Organization Address [facility]/ZIP Co de Phone Number [facility] [place] [address] * Fibrinogen (09/21/2016 10:50 AM EST) Fibrinogen 228 180 - 510 mg/dL [facility] Comment: Called by: JONNATHAN, Read back by: MICHELLE ALEJANDRE_, Date/Time:09/21/16 11:11. A fibrinogen level >100 mg/dL is adequate for hemostasis in most patients without underlying bleeding disorders. Blood specimen (specimen) 09/21/2016 10:50 AM EST 09/21/2016 10:56 AM EST Narrative Resulting Agency Comment Spec In Lab Luis Enrique Quarles MD HEMATOLOGY ORDERABLE S Performing Organization Address [facility] de Phone Number [facility] [place] [address] * APTT (09/21/2016 10:50 AM EST) Partial Thromboplastin Time 32 25 - 35 sec [facility] Comment: The recommended therapeutic range for full dose, unfractionated heparin at [facility] is 80 ? 114 seconds. The use of the anti-Xa (heparin) level rather than the PTT is recommended for monitoring anticoagulation intensity in critically ill patients receiving unfractionated heparin by continuous IV infusion. Blood specimen (specimen) 09/21/2016 10:50 AM EST 09/21/2016 10:56 AM EST Narrative Resulting Agency Comment Spec In Lab Luis Enrique Quarles MD HEMATOLOGY ORDERABLE S Performing Organization Address [facility] de Phone Number [facility] [place] [address] * (ABNORMAL) Prothrombin Time (09/21/2016 10:50 AM EST) Prothrombin Time 18.7(H) 12.0 - 15.0 sec [facility] Comment: An INR [...] International Normalization Ratio 1.5(H) 0.9 - 1.1 [facility] Blood specimen (specimen) 09/21/2016 10:50 AM EST 09/21/2016 10:56 AM EST Narrative Resulting Agency Comment Spec In Lab Luis Enrique Quarles MD HEMATOLOGY ORDERABLE S [facility] [place] [address] * (ABNORMAL) Hemogram (09/21/2016 10:50 AM EST) White Blood Cell 14.7(H) 4.0 - 9.5 x10(3)/mc L [facility] Red Blood Cell 2.40(L) 4.00 - 5.21 x10(6)/mc L [facility] Hemoglobin 7.9(L) 11.7 - 15.5 gm/dL [facility] Hematocrit 23.2(L) 35.7 - 45.8 % [facility] Comment: This result has been called to MICHELLE GRIGSBY by ASHU MORENO on 09 21 2016 at 1102, and has been read back. Mean Cell Volume 96.7(H) 82.6 - 94.4 fL [facility] Mean Cell Hemoglobin 32.9(H) 27.1 - 32.0 pg [facility] Mean Cell Hemoglobin Concentration 34.1 31.7 - 35.0 gm/dL [facility] Platelet 117(L) 145 - 357 x10(3)/mc L [facility] RDW Standard Deviation 42.6 37.0 - 46.0 fL [facility] RDW coefficient of variation 12.1 11.5 - 14.1 % [facility] Mean Platelet Volume 9.2 7.6 - 12.9 fL [facility] NRBC% auto 0.1 % [facility] NRBC Absolute 0.020(H) 0.000 - 0.000 x10(3)/mc L [facility] Blood specimen (specimen) 09/21/2016 10:50 AM EST 09/21/2016 10:56 AM EST Narrative Resulting Agency Comment Spec In Lab Luis Enrique Quarles MD HEMATOLOGY ORDERABLE S Performing Organization Address [facility]/[place] [address] * Prepare Platelets, Apheresis (09/21/2016 10:30 AM EST) Pathologist [facility] Dispensed? Yes [facility] Blood specimen (specimen) 09/21/2016 10:30 AM EST 09/21/2016 10:28 AM EST Alirio Esparza MD BLOOD BANK PRODUCT ORDERABLES Performing Organization Address [facility] [place] [address] * (ABNORMAL) BLOOD GAS 2 ARTERIAL (09/21/2016 10:05 AM EST) pH, Arterial 7.33(L) 7.35 - 7.45 [facility] PCO2, Arterial 54(Critic al) 35 - 45 mmHg [facility] Comment:Noted by director instrumentation. PO2, Arterial 218(H) 85 - 104 mmHg [facility] Bicarbonate, Arterial 27.9(H) 20.0 - 26.0 mmol/L [facility] Base Excess, Arterial 2.0 -3.0 - 3.0 mmol/L [facility] Hgb Blood Gas 8.6(L) 11.7 - 15.5 gm/dL [facility] Oxyhemoglobin, Arterial 98.4(H) 94.0 - 97.0 % [facility] Carboxyhemoglo bin, Arterial 0.5 % [facility] Comment: Nonsmokers: 0.5-1.5% COHB Smokers: Variable, but usually less than 10% Toxic: 20-30% COHB Lethal: Greater than 60% COHB Methemoglobin, Arterial 0.3 <=1.5 % [facility] Na Whole Blood 129(L) 135 - 145 mmol/L [facility] K Whole Blood 6.2(Criti gabrielle) 3.5 - 5.0 mmol/L [facility] Comment: Noted by director instrumentation. Please note: Patients with WBC >100,000 may have falsely elevated Potassium levels. Contact the Clinical Chemistry Laboratory if there are any questions. ICa Whole Blood 0.95(L) 1.15 - 1.33 mmol/L [facility] Comment: Note: ??Total bilirubin higher than 20 mg/dL may lead to falsely low ionized calcium. CL Whole Blood 100 98 - 107 mmol/L [facility] Gluc Whole Bld 289(H) 65 - 199 mg/dL [facility] Comment:Diabetes: >=200 mg/d L plus symptoms. Lactate WB 2.2 0.5 - 2.2 mmol/L [facility] Temp Art 37.0 Celsius [facility] Blood specimen (specimen) 09/21/2016 10:05 AM EST 09/21/2016 10:05 AM EST Alirio Esparza MD POINT OF CARE TEST ORDERABLES [facility] [place] [address] * (ABNORMAL) BLOOD GAS 2 ARTERIAL (09/21/2016 9:44 AM EST) pH, Arterial 7.22(Criti gabrielle) 7.35 - 7.45 [facility] Comment:Noted by director instrumentation. PCO2, Arterial 70(Critica l) 35 - 45 mmHg [facility] Comment:Noted by director instrumentation. PO2, Arterial 224(H) 85 - 104 mmHg [facility] Bicarbonate, Arterial 27.8(H) 20.0 - 26.0 mmol/L [facility] Base Excess, Arterial 0.0 -3.0 - 3.0 mmol/L [facility] Hgb Blood Gas 8.7(L) 11.7 - 15.5 gm/dL [facility] Oxyhemoglobin, Arterial 98.5(H) 94.0 - 97.0 % [facility] Carboxyhemoglob in, Arterial 0.6 % [facility] Comment: Nonsmokers: 0.5-1.5% COHB Smokers: Variable, but usually less than 10% Toxic: 20-30% COHB Lethal: Greater than 60% COHB Methemoglobin, Arterial 0.3 <=1.5 % [facility] Na Whole Blood 131(L) 135 - 145 mmol/L [facility] K Whole Blood 5.9(H) 3.5 - 5.0 mmol/L [facility] Comment: Please note: Patients with WBC >100,000 may have falsely elevated Potassium levels. Contact the Clinical Chemistry Laboratory if there are any questions. ICa Whole Blood 1.00(L) 1.15 - 1.33 mmol/L [facility] Comment: Note: ??Total bilirubin higher than 20 mg/dL may lead to falsely low ionized calcium. CL Whole Blood 101 98 - 107 mmol/L [facility] Gluc Whole Bld 227(H) 65 - 199 mg/dL [facility] Comment:Diabetes: >=200 mg/d L plus symptoms. Lactate WB 2.1 0.5 - 2.2 mmol/L [facility] Blood specimen (specimen) 09/21/2016 9:44 AM EST 09/21/2016 9:44 AM EST Alirio Esparza MD POINT OF CARE TEST ORDERABLES [facility] [place] [address] * (ABNORMAL) Hemoglobin (09/21/2016 9:42 AM EST) Hemoglobin 7.2(L) 11.7 - 15.5 gm/dL [facility] Blood specimen (specimen) 09/21/2016 9:42 AM EST 09/21/2016 9:51 AM EST Narrative Resulting Agency Comment Spec In Lab Alirio Esparza MD HEMATOLOGY ORDERABL ES [facility] [place] [address] * Platelet count (09/21/2016 9:42 AM EST) Platelet 159 145 - 357 x10(3)/mc L [facility] Immature Plt % 1.6 0.0 - 7.4 % [facility] Comment: Limitation of the Immature Platelet Fraction (IPF)-May be less reliable when the platelet count is less than 15y690/uL due to statistical imprecision. The IPF value [...] in a decreased state of production. References: [employer] The Clinical Value of the Immature Platelet Fraction (IPF) in Cell Recovery Document Number 10-1143 12/2010 [employer] The Role of the Immature Platelet Fraction (IPF) in the Differential Diagnosis of Thrombocytopenia, Document MKT-10-1209 V05 P0514 Blood specimen (specimen) 09/21/2016 9:42 AM EST 09/21/2016 9:51 AM EST Narrative Resulting Agency Comment Spec In Lab Alirio Esparza MD HEMATOLOGY ORDERABL ES [facility] [place] [address] * (ABNORMAL) Hematocrit (09/21/2016 9:42 AM EST) Hematocrit 21.6(L) 35.7 - 45.8 % [facility] Comment: This result has been called to MICHELLE ALEJANDRE by Serjio Frazier on 09 21 2016 at 0957, and has been read back. Blood specimen (specimen) 09/21/2016 9:42 AM EST 09/21/2016 9:51 AM EST Narrative Resulting Agency Comment Spec In Lab Alirio Esparza MD HEMATOLOGY ORDERABL ES Performing Organization Address [facility] de Phone Number [facility] [place] [place] [address] * Fibrinogen (09/21/2016 9:42 AM EST) Fibrinogen 219 180 - 510 mg/dL [facility] Comment: Called by: JONNATHAN, Read back by: MICHELLE ALEJANDRE_, Date/Time:09/21/16 10:03_. A fibrinogen level >100 mg/dL is adequate for hemostasis in most patients without underlying bleeding disorders. Blood specimen (specimen) 09/21/2016 9:42 AM EST 09/21/2016 9:51 AM EST Narrative Resulting Agency Comment Spec In Lab Alirio Esparza MD HEMATOLOGY ORDERABL ES Performing Organization Address [facility] de Phone Number [facility] [place] [address] * (ABNORMAL) BLOOD GAS 2 ARTERIAL (09/21/2016 9:10 AM EST) pH, Arterial 7.36 7.35 - 7.45 [facility] PCO2, Arterial 48(H) 35 - 45 mmHg [facility] PO2, Arterial 295(H) 85 - 104 mmHg [facility] Bicarbonate, Arterial 26.0 20.0 - 26.0 mmol/L [facility] Base Excess, Arterial 0.5 -3.0 - 3.0 mmol/L [facility] Hgb Blood Gas 8.0(L) 11.7 - 15.5 gm/dL [facility] Oxyhemoglobin, Arterial 98.3(H) 94.0 - 97.0 % [facility] Carboxyhemoglob in, Arterial 1.0 % [facility] Comment: Nonsmokers: 0.5-1.5% COHB Smokers: Variable, but usually less than 10% Toxic: 20-30% COHB Lethal: Greater than 60% COHB Methemoglobin, Arterial 0.3 <=1.5 % [facility] Na Whole Blood 135 135 - 145 mmol/L [facility] K Whole Blood 5.4(H) 3.5 - 5.0 mmol/L [facility] Comment: Please note: Patients with WBC >100,000 may have falsely elevated Potassium levels. Contact the Clinical Chemistry Laboratory if there are any questions. ICa Whole Blood 0.93(L) 1.15 - 1.33 mmol/L [facility] Comment: Note: ??Total bilirubin higher than 20 mg/dL may lead to falsely low ionized calcium. CL Whole Blood 102 98 - 107 mmol/L [facility] Gluc Whole Bld 195 65 - 199 mg/dL [facility] Comment:Diabetes: >=200 mg/d L plus symptoms. Lactate WB 1.8 0.5 - 2.2 mmol/L [facility] Temp Art 37.0 Celsius [facility] Blood specimen (specimen) 09/21/2016 9:10 AM EST 09/21/2016 9:10 AM EST Alirio Esparza MD POINT OF CARE TEST ORDERABLES Performing Organization Address City/State/[facility] Co de Phone Number [facility] [place] [address] * Surgical Pathology Report (09/21/2016 9:09 AM EST) Final Diagnosis [id number] ?Location: 3T The signing pathologist has (i) [...] ?. (R1) ??ADELITA 09/24/2016 9:32 AM EST [facility] AORTIC STRUCTURE / Unknown 09/21/2016 9:09 AM EST 09/21/2016 9:09 AM EST Alirio Esparza MD PATHOLOGY/CYTOLOGY ORDERABLES Performing Organization Address City/[facility] Co de Phone Number [facility] [place] [address] * Specimen to Pathology (surgical or derm) (09/21/2016 9:09 AM EST) AP Specimen 09/21/2016 9:09 AM EST 09/21/2016 9:09 AM EST Narrative [facility] - 09/21/2016 9:09 AM EST Specimen requisition ordered. ??Separate Pathology report to follow Alirio Esparza MD PATHOLOGY/CYTOLOGY ORDERABLES Performing Organization Address [facility]/ZIP Co de Phone Number [facility] [place] [address] * (ABNORMAL) BLOOD GAS 2 ARTERIAL (09/21/2016 8:50 AM EST) pH, Arterial 7.41 7.35 - 7.45 [facility] PCO2, Arterial 33(L) 35 - 45 mmHg [facility] PO2, Arterial 348(H) 85 - 104 mmHg [facility] Bicarbonate, Arterial 20.6 20.0 - 26.0 mmol/L [facility] Base Excess, Arterial -4.1(L) -3.0 - 3.0 mmol/L [facility] Hgb Blood Gas 9.5(L) 11.7 - 15.5 gm/dL [facility] Oxyhemoglobin, Arterial 98.8(H) 94.0 - 97.0 % [facility] Carboxyhemoglob in, Arterial 0.3 % [facility] Comment: Nonsmokers: 0.5-1.5% COHB Smokers: Variable, but usually less than 10% Toxic: 20-30% COHB Lethal: Greater than 60% COHB Methemoglobin, Arterial 0.3 <=1.5 % [facility] Na Whole Blood 137 135 - 145 mmol/L [facility] K Whole Blood 4.0 3.5 - 5.0 mmol/L [facility] Comment: Please note: Patients with WBC >100,000 may have falsely elevated Potassium levels. Contact the Clinical Chemistry Laboratory if there are any questions. ICa Whole Blood 1.04(L) 1.15 - 1.33 mmol/L [facility] Comment: Note: ??Total bilirubin higher than 20 mg/dL may lead to falsely low ionized calcium. CL Whole Blood 105 98 - 107 mmol/L [facility] Gluc Whole Bld 93 65 - 199 mg/dL [facility] Comment:Diabetes: >=200 mg/d L plus symptoms. Lactate WB 1.0 0.5 - 2.2 mmol/L [facility] Blood specimen (specimen) 09/21/2016 8:50 AM EST 09/21/2016 8:50 AM EST Alirio Esparza MD POINT OF CARE TEST ORDERABLES [facility] [place] [address] * (ABNORMAL) BLOOD GAS 2 ARTERIAL (09/21/2016 8:18 AM EST) pH, Arterial 7.42 7.35 - 7.45 [facility] PCO2, Arterial 36 35 - 45 mmHg [facility] PO2, Arterial 283(H) 85 - 104 mmHg [facility] Bicarbonate, Arterial 22.8 20.0 - 26.0 mmol/L [facility] Base Excess, Arterial -2.0 -3.0 - 3.0 mmol/L [facility] Hgb Blood Gas 12.6 11.7 - 15.5 gm/dL [facility] Oxyhemoglobin, Arterial 99.0(H) 94.0 - 97.0 % [facility] Carboxyhemoglob in, Arterial 0.6 % [facility] Comment: Nonsmokers: 0.5-1.5% COHB Smokers: Variable, but usually less than 10% Toxic: 20-30% COHB Lethal: Greater than 60% COHB Methemoglobin, Arterial 0.0 <=1.5 % [facility] Na Whole Blood 144 135 - 145 mmol/L [facility] K Whole Blood 4.0 3.5 - 5.0 mmol/L [facility] Comment: Please note: Patients with WBC >100,000 may have falsely elevated Potassium levels. Contact the Clinical Chemistry Laboratory if there are any questions. ICa Whole Blood 1.22 1.15 - 1.33 mmol/L [facility] Comment: Note: ??Total bilirubin higher than 20 mg/dL may lead to falsely low ionized calcium. CL Whole Blood 106 98 - 107 mmol/L [facility] Gluc Whole Bld 102 65 - 199 mg/dL [facility] Comment:Diabetes: >=200 mg/d L plus symptoms. Lactate WB 1.2 0.5 - 2.2 mmol/L [facility] FIO2 Art 95 % [facility] Flow Art 1.1 LPM [facility] PF Ratio Art 298 [facility] Temp Art 35.6 Celsius [facility] Blood specimen (specimen) 09/21/2016 8:18 AM EST 09/21/2016 8:18 AM EST Alirio Esparza MD POINT OF CARE TEST ORDERABLES Performing Organization Address [facility] Co de Phone Number [facility] [place] [address] * Prepare RBC (09/21/2016 7:05 AM EST) Dispensed? Yes [facility] Blood specimen (specimen) 09/21/2016 7:05 AM EST 09/21/2016 7:02 AM EST Alirio Esparza MD BLOOD BANK PRODUCT ORDERABLES Performing Organization Address [facility] Co de Phone Number [facility] [place] [address] * POCT Glucose (09/21/2016 6:42 AM EST) Glucose, POC 104 65 - 199 mg/dL [facility] Comment: Supplemental ranges: <140 mg/dL before meals <180 mg/dL all other times of the day Blood specimen (specimen) 09/21/2016 6:42 AM EST 09/21/2016 6:42 AM EST Alirio Esparza MD POINT OF CARE TEST ORDERABLES Performing Organization Address [facility] de Phone Number [facility] [place] [address] documented in this encounter Visit Diagnoses Not [...] dose on Wed09/21/16 at 1230, Until Discontinued, [place] teeth, Routine Given 09/25/2016 9:40 AM EST [...] at 0600)1600 (Due - Provider: Kendall Martínez [facility]) aspirin chewable tablet 81 mg(Linked [...] dose on Wed09/21/16 at 1230, Until Discontinued, [place] teeth, Routine 0900 (Not Given - Provider: [...] Routine documented in this encounter Care Teams Mechanism Inspector Relationship Specialty Start Date End Date Deborah Quiroga APRN PCP - General Family Medicine 03/24/16 02/04/23 documented as of this encounter
--- OUTSIDE RECORDS SUMMARY | 2024-03-23 14:04 | XMS_ITS | Encounter Summary ---
Author Organization [facility] [place] [address] Care Team Providers Care Peoplesoft Administrator Name Role Phone Deborah Quiroga APRN Primary Care Provider [phone] Encounter Details Date Type Department Care Team (Latest Contact Info) Description 07/10/2016 2:54 PM EST - 07/10/2016 11:59 PM EST [place] [phone] Discharge Disposition: Home Social History Tobacco Use [...] 4:15 PM EDT Office Visit Dermatology at [place] [address] [place] [address] Marek Bonilla MD [address] [place] [address] documented as of this encounter Procedures Procedure Name Priority Date/Time Associated Diagnosis Comments BONE MARROW FINAL REPORT Routine 07/10/2016 3:43 PM EST documented in this encounter Results * Bone Marrow Final Report (07/10/2016 3:43 PM EST) Final Diagnosis [id number] ?Location: OPW The signing pathologist has (i) examined the relevant preparation(s) for the specimen(s) and (ii) rendered or confirmed the diagnosis(es). . ? Bone Marrow Final DIAGNOSIS BONE MARROW (PERIPHERAL SMEAR, ASPIRATE SMEAR, TOUCH PREP, CLOT SECTION, CORE BIOPSY); [OSR# [id number], COLLECTED 06/23/2016, 19 SLIDES]: ?? 1. ??Normocellular [...] clonal lymphoproliferative or myeloproliferative ? disorder (OSR# [id number]) ?Chromosome analysis on the marrow aspirate revealed a normal female karyotype; ?46,XX[25] ??(OSR# [id number]) Electronically signed by: ??Elian Guillen MD Verified: [...] 3/uL Band/Seg 0.52 x103/uL; Lymph 0.75 x103/uL; [place] 0.15 x103/uL; Eos 0.01%; Baso 0.01 x10 [...] plasma cells represent 3-4% of the cellularity [place] ? Polytypic plasma cell staining, high background Lambda ?Polytypic plasma cell staining, high background Block: ? B2 (Core biopsy 2) Fixative: ?? Formalin ANTIBODY: ?? RESULT/COMMENT CD3 ? Scattered small lymphocytes and lymphoid aggregates highlighted CD20 ?Few scattered small lymphocytes stain ( ?? <CD3 in aggregates) CD138 ? Scattered plasma cells represent 3-4% of the cellularity [place] ? Polytypic plasma cell staining, high background Lambda ?Polytypic plasma cell staining, high background Note: The immunoperoxidase stains reported above were developed and their performance characteristics determined by [facility] Clinical Laboratories. ??They [...] CONSULTATION CASE A - 19 slides labeled [id number], collection date 06/23/2016. [id number] Report to: [facility] Surgical Pathology Department [facility], [facility], 2nd Floor [address], [place] ??[address] 07/13/2016 11:38 AM EST [facility] Consult Case 07/10/2016 3:43 PM EST 07/10/2016 3:43 PM EST Nitesh Pina Jr., MD PATHOLOGY/CYTOLOGY O RDERABLES Performing Organization Address City/State/[facility] Co de Phone Number [facility] [place] [address] documented in this encounter Visit Diagnoses Not on filedocumented in this encounter Care Teams Peoplesoft Administrator Relationship Specialty Start Date End Date Deborah Quiroga, ANURAG PCP - General Family Medicine 03/24/16 02/04/23 documented as of this encounter
--- OUTSIDE RECORDS SUMMARY | 2024-03-23 14:04 | XMS_ITS | Encounter Summary ---
[place] [address] Care Team Providers Care Airport Security Screener Name Role Phone Ashley Quirogan Cornelius ANURAG Primary Care Provider [phone] Reason for Visit * Reason Onset Date Comments Medical Care Coordination 09/14/2016 Encounter Details Date Type Department Care Team (Late st Contact Info) Description 09/14/2016 Telephone Hematology [place] [phone] Alexandrea Greenwood RN Medical Care Coordination Social [...] 09/14/2016 9:10 AM EST Message received from payroll secretary: Injection/Infusion Referral Call placed to [facility] Infusion Room Spoke charis Bragg. Services to be provided for pt are: [facility] 09/16/16 [facility] confirmed they would provide services to pt and would contact with appointment time. Pt aware to expect the phone call ??orders faxed to [phone]). documented in this encounter Plan of Treatment Upcoming Encounters Date Type Department Care Team (Late st Contact Info) Description 03/01/2025 4:15 PM EDT Office Visit Dermatology at [place] [address] [place] [phone] Marek Bonilla MD [address] [place] [address] documented as of this encounter Visit Diagnoses Not on filedocumented in this encounter Care Teams Airport Security Screener Relationship Specialty Start Date End Date Deborah Quiroga APRN PCP - General Family Medicine 03/24/16 02/04/23 documented as of this encounter
--- OUTSIDE RECORDS SUMMARY | 2024-03-23 14:04 | XMS_ITS | Encounter Summary ---
Author [place] [address] Care Team Providers Care Microstrategy Architect Name Role Phone Deborah Quiroga APRN Primary Care Provider [phone] Encounter Details Date Type Department Care Team (Late st Contact Info) Description 09/17/2016 External Results Hematology [place] [address] Alexandrea Greenwood RN Neutropenia, unspecified type Social [...] PM EDT Office Visit Dermatology at [place] [address] [place] [phone] Marek Bonilla MD [address] [place] [address] documented as of this encounter Procedures Procedure [...] type documented in this encounter Care Teams Microstrategy Architect Relationship Specialty Start Date End Date Deborah Quiroga, PLANT OPERATIONS WORKER PCP - General Family Medicine 03/24/16 02/04/23 documented as of this encounter
--- OUTSIDE RECORDS SUMMARY | 2024-03-23 14:04 | XMS_ITS | Encounter Summary ---
[place] [address] Care Team Providers Care Ore Trimmer Name Role Phone Deborah Quiroga APRN Primary Care Provider [phone] Encounter Details Date Type Department Care Team (Late st Contact Info) Description 08/18/2016 Orders [place] [address] Alirio Esparza MD Aortic valve stenosis, unspecified [...] 4:15 PM EDT Office Visit Dermatology at [place] [address] [phone] Marek Bonilla MD [address] [place] [address] documented as of this encounter Results * Basic Metabolic Panel (non-fasting) (08/18/2016 4:50 PM EST) Glucose 82 65 - 199 mg/dL [facility] Comment:Diabetes: >=200 mg/d L plus symptoms Blood Urea Nitrogen 12 8 - 18 mg/dL [facility] Creatinine 0.87 0.70 - 1.20 mg/dL [facility] Comment: Please note that the pediatric reference intervals supplied above were not validated at [facility]. Results from pediatric patients should be interpreted in conjunction to the patient's age, height and muscle mass. Sodium 142 135 - 145 mmol/L [facility] [...] questions. Chloride 102 98 - 107 mmol/L [facility] Carbon Dioxide 26 22 - 31 mmol/L [facility] Anion Gap 14 5 - 15 mmol/L [facility] Calcium 9.7 8.5 - 10.5 mg/dL [facility] Est Glomerular Filtration Rate >60 >=60 [facility] Comment: [...] the following links into your internet browser. [email or web address] Blood specimen (specimen) 08/18/2016 4:50 PM EST 08/18/2016 5:03 PM EST Narrative Resulting Agency Comment Spec In Lab Alirio Esparza MD CHEMISTRY ORDERABLE S [facility] [place] [address] documented in this encounter Visit Diagnoses Diagnosis Aortic valve stenosis, unspecified etiology documented in this encounter Care Teams Ore Trimmer Relationship Specialty Start Date End Date Deborah Quiroga, VIRTUAL OFFICE ASSISTANT PCP - General Family Medicine 03/24/16 02/04/23 documented as of this encounter
--- OUTSIDE RECORDS SUMMARY | 2024-03-23 14:04 | XMS_ITS | Encounter Summary ---
Author Organization [facility] Address [facility] [place] [address] Care Team Providers Care Highway Painter Helper Name Role Phone Deborah Quiroga APRN Primary Care Provider [phone] Encounter Details Date Type Department Care Team (Late st Contact Info) Description 06/16/2016 Orders Only Hematology [place] [address] Nitesh Pina Jr., MD [address] HEMATOLOGY [place] [address] Cyclical neutropenia Social History Tobacco Use Types [...] PM EDT Office Visit Dermatology at [place] [address] [place] [phone] Marek Bonilla MD [address] [place] A DERMATOLOGY [place], [place] [phone] documented as of this encounter Visit Diagnoses Diagnosis Cyclical neutropenia Cyclic neutropenia documented in this encounter Care Teams Highway Painter Helper Relationship Specialty Start Date End Date Deborah Quiroga APRN PCP - General Family Medicine 03/24/16 02/04/23 documented as of this encounter
--- OUTSIDE RECORDS SUMMARY | 2024-03-23 14:05 | XMS_ITS | Encounter Summary ---
Author Organization [facility] Address [facility] [place] [address] Care Team Providers Care Casino Host Name Role Phone EitanMagnusDanni ANURAG Primary Care Provider Encounter Details Date Type Department Care Team (Latest Contact Info) Description 01/23/2014 7:45 AM EDT - 01/23/2014 5:50 PM EDT Hospital Encounter [place] [address] Alan Jacobson MD [facility] [place] [address] Cardiomyopathy; SOB (shortness of breath) Discharge Disposition: [...] by your doctor, do not take any [id number]-oxyzegv medicines or herbal preparations without first discussing this with your doctor or pharmacist. There is the possibility of side effect and interactions when these are combined. Follow up Care Who to Call with Questions or Problems If there are any questions or problems that you think might be related to your cardiac cath or angioplasty, contact the fashion consultant sales sales development consultant by calling [facility] at . documented in this [...] 4:15 PM EDT Office Visit Dermatology at [place] [address] [place] [address] Marek Bonilla MD [address], [address] [place] [address] documented as of this encounter Procedures Procedure [...] ANDREW ECHOLS M ?(Age): 1955(58) Med Rec#: ?[id number] ? Sex: ?F ? Site Loc: ?[facility] ? Ht / Wt: ??158(cm)/93(kg) Pt. Loc: ? Adult Floor ?BSA: ?2.02 Study Date: ?01/23/2014 ? Pt. Type: Inpatient Tape: ? Referring: Lee Kincaid ([id number]) Referring: ANNALISA Envelope Patternmaker: Miguel Beverly Diagnosis:CPT Code(s): ??Echo Full (63621), ??Spectral Doppler (53635), Color Doppler (53788), Indication(s): ??Aortic stenosis Rhythm: Sinus HR ?BP [...] ? Mid-Inferior ?Hypokinetic ? Mid-Inferoseptal ?Hypokinetic ? [place]-Septal ? Hypokinetic ? [place]-Anterior ? Hypokinetic ? [place]-Lateral ?Hypokinetic ? [place]-Inferior ? Hypokinetic ? [place]-Tip ?Hypokinetic ? Chambers ?Value ?Units (Range) ? [...] 01/23/2014 16:34:37 Images reviewed and interpretation verified [facility] Cardiac Ultrasound Laboratory Procedure Note Lee Kincaid MD - 01/23/2014 Procedure: Transthoracic Echocardiogram Patient: ANDREW Mejias (Age): 1955(58) Med Rec#: [id number] Sex: F Site Loc: [facility] Ht / Wt: 158(cm)/93(kg) Pt. Loc: Adult Floor BSA: 2.02 Study Date: 01/23/2014 Pt. Type: Inpatient Tape: Referring: Lee Kincaid ([id number]) Referring: ANNALISA Envelope Patternmaker: Miguel Beverly Diagnosis:CPT Code(s): Echo Full (78237), Spectral Doppler (17180), Color Doppler (44555), Indication(s): Aortic stenosis Rhythm: Sinus HR BP [...] Hypokinetic Mid-Posterolateral Hypokinetic Mid-Inferior Hypokinetic Mid-Inferoseptal Hypokinetic [place]-Septal Hypokinetic [place]-Anterior Hypokinetic [place]-Lateral Hypokinetic [place]-Inferior Hypokinetic [place]-Tip Hypokinetic Chambers Value Units (Range) IVSd 2D [...] 01/23/2014 16:34:37 Images reviewed and interpretation verified [facility] Cardiac Ultrasound Laboratory Lee Kincaid [...] RN) documented in this encounter Care Teams Casino Host Relationship Specialty Start Date End Date Danni Laird APRN [address] [place] [address] PCP - General 01/23/14 11/11/14 documented as of this encounter
--- OUTSIDE RECORDS SUMMARY | 2024-03-23 14:05 | XMS_ITS | Encounter Summary ---
Author Organization [facility] Address [facility] [place] [address] Care Team Providers Care Criminal Investigator Name Role Phone Mitchell Wilkes MD Primary Care Provider Encounter Details Date Type Department Care Team (Late st Contact Info) Description 01/19/2014 Orders Only Cardiology at [address] [address] Chele Randolph, [place] [facility] [place] [address] Cardiomyopathy (Primary Dx) Social History Tobacco Use [...] 4:15 PM EDT Office Visit Dermatology at [place] [address] [place] [address] Marek Bonilla MD [address], [place] [address] documented as of this encounter Procedures Procedure [...] cardiomyopathies documented in this encounter Care Teams Criminal Investigator Relationship Specialty Start Date End Date Mitchell Wilkes MD [facility] PCP - General 06/24/10 01/19/14 documented as of this encounter
--- OUTSIDE RECORDS SUMMARY | 2024-03-23 14:05 | XMS_ITS | Encounter Summary ---
[place] [address] Care Team Providers Care Triple Valve Tester Name Role Phone Jerel Sofia Garcia APRN Primary Care Provider [phone] Encounter Details Date Type Department Care Team (Late st Contact Info) Description 11/12/2014 8:10 AM EDT - 11/12/2014 11:59 PM EDT [place] [phone] CLINIC, DR ABE Burrell, Antelmo Porter MD [address] [place] [address] Discharge Disposition: Home Social History Tobacco Use [...] 4:15 PM EDT Office Visit Dermatology at [place] [address] [place] [address] Marek Bonilla MD [address], [place] [address] documented as of this encounter Procedures Procedure [...] mLs documented in this encounter Care Teams Triple Valve Tester Relationship Specialty Start Date End Date Sofia Beltrán APRN [address] [place] [address] PCP - General 11/12/14 03/23/16 documented as of this encounter
--- OUTSIDE RECORDS SUMMARY | 2024-03-23 14:05 | XMS_ITS | Encounter Summary ---
Author Organization [facility] [place] [address] Care Team Providers Care Bottom Painter Name Role Phone Junaid, Deborah Shields APRN Primary Care Provider [phone] Encounter Details Date Type Department Care Team (Late st Contact Info) Description 05/19/2016 10:00 AM EDT Office [place] [phone] Alirio Esparza MD Nonrheumatic aortic valve stenosis [...] PM EDT Office Visit Dermatology at [place] [address] [place] [address] Marek Bonilla MD [address] [facility], [place] [address] documented as of this encounter Results * [...] (Bezet) 448 ms MUSE SYSTEM Calculated P [place] 37 degrees MUSE SYSTEM Calculated R [place] 31 degrees MUSE SYSTEM Calculated T [place] 25 degrees MUSE SYSTEM INTERPRETATION Normal sinus rhythm Normal ECG No previous ECGs available Confirmed by MD Becca, Deangelo ([id number]) on 05/19/2016 5:23:33 PM MUSE SYSTEM 05/19/2016 11:4 3 AM EDT 05/19/2016 5:23 PM EDT Alirio Esparza MD ECG ORDERABLES MUSE SYSTEM * Basic Metabolic Panel (non-fasting) (05/19/2016 11:32 AM EDT) Pathologist [facility] Glucose 86 65 - 199 mg/dL [facility] Comment:Diabetes: >=200 mg/d L plus symptoms Blood Urea Nitrogen 13 8 - 18 mg/dL [facility] Creatinine 0.95 0.70 - 1.20 mg/dL [facility] Comment: Please note that the pediatric reference intervals supplied above were not validated at [facility]. Results from pediatric patients should be interpreted in conjunction to the patient's age, height and muscle mass. Sodium 140 135 - 145 mmol/L [facility] [...] questions. Chloride 101 98 - 107 mmol/L [facility] Carbon Dioxide 27 22 - 31 mmol/L [facility] Anion Gap 12 5 - 15 mmol/L [facility] Calcium 10.1 8.5 - 10.5 mg/dL [facility] Est Glomerular Filtration Rate 60 >=60 [facility] Comment: [...] the following links into your internet browser. [email or web address] Blood specimen (specimen) 05/19/2016 11:32 AM EDT 05/19/2016 11:41 AM EDT Narrative Resulting Agency Comment Spec In Lab Alirio Esparza MD CHEMISTRY ORDERABLE S Performing Organization Address City/State/[facility] Co de Phone Number [facility] [place] [address] documented in this encounter Visit Diagnoses Diagnosis Nonrheumatic aortic valve stenosis Aortic valve disorders Nonrheumatic aortic valve stenosis Aortic valve disorders documented in this encounter Care Teams Bottom Painter Relationship Specialty Start Date End Date Deborah Quiroga APRN PCP - General Family Medicine 03/24/16 02/04/23 documented as of this encounter
--- OUTSIDE RECORDS SUMMARY | 2024-03-23 14:05 | XMS_ITS | Encounter Summary ---
Author Organization [facility] [place] [address] Care Team Providers Care Used Car Make Ready Worker Name Role Phone Junaid Deborah Shields APRN Primary Care Provider [phone] Encounter Details Date Type Department Care Team (Latest Contact Info) Description 05/19/2016 11:20 AM EDT Laboratory [place] [address] Nonrheumatic aortic valve stenosis Social History Tobacco [...] EDT Office Visit Dermatology at [place] [address] [place] [address] Marek Bonilla MD [address], [place] [address] documented as of this encounter Procedures Procedure Name Priority Date/Time Associated Diagnosis Comments SCAN, PERIPHERAL BLOOD Routine 05/19/2016 11:32 AM EDT HEMOGRAM Routine 05/19/2016 11:32 AM EDT Nonrheumatic aortic valve stenosis DIFFERENTIAL, AUTOMATED Routine 05/19/2016 11:32 AM EDT Nonrheumatic aortic valve stenosis TYPE AND SCREEN, SDP (FUTURE SURGERY, [facility] SAME DAY PROGRAM ONLY) Routine 05/19/2016 11:32 [...] Peripheral Blood (05/19/2016 11:32 AM EDT) Pathologist [facility] Plat estimate Normal [facility] RBC Morphology Normal [facility] Blood specimen (specimen) 05/19/2016 11:32 AM EDT 05/19/2016 11:41 AM EDT Narrative Resulting Agency Comment Spec In Lab Alirio Esparza MD HEMATOLOGY ORDERABL ES [facility] [place] [place] [address] * (ABNORMAL) Differential, Automated (05/19/2016 11:32 AM EDT) [facility] Neutrophil % 25.9 % [facility] Neutrophil Absolute 0.42(Crit ical) 1.70 - 6.10 x10(3)/mc L [facility] Comment: This result has been called to DR ALIRIO ESPARZA by Alivia Ibarra on 05 19 2016 at 1228, and has been read back. Lymph % 59.9 % [facility] Lymphocytes Abs 1.0 0.9 - 3.2 x10(3)/mc L [facility] Monocyte % 13.0 % [facility] Monocyte Abs 0.2(L) 0.3 - 0.9 x10(3)/[facility] Eos % 0.6 % [facility] Eosinophils Abs 0.0 0.0 - 0.4 x10(3)/ L [facility] Basophil % 0.6 % [facility] Baso Absolute 0.0 0.0 - 0.1 x10(3)/[facility] Immature Gran % 0.00 % [facility] Comment: Immature granulocytes(IG's)percentage and absolute count will include metamyelocytes, myelocytes, and promyelocytes. Blood smears from CBCs yielding IG's will be scanned manually for concordance. If this scan disagrees with the automated IG or if promyelocytes are noted, a manual differential will be performed. Immature Gran Absolute 0.00 0.00 - 0.04 x10(3)/[facility] Blood specimen (specimen) 05/19/2016 11:32 AM EDT 05/19/2016 11:41 AM EDT Narrative Resulting Agency Comment Spec In Lab Alirio Esparza MD HEMATOLOGY ORDERABL ES [facility] [place] [address] * (ABNORMAL) Hemogram (05/19/2016 11:32 AM EDT) White Blood Cell 1.6(Criti gabrielle) 4.0 - 9.5 x10(3)/ L [facility] Comment: This result has been called to DR ALIRIO ESPARZA by Alivia Ibarra on 05 19 2016 at 1228, and has been read back. Red Blood Cell 3.96(L) 4.00 - 5.21 x10(6)/mc L [facility] Hemoglobin 12.5 11.7 - 15.5 gm/dL [facility] Hematocrit 37.9 35.7 - 45.8 % [facility] Mean Cell Volume 95.7(H) 82.6 - 94.4 fL [facility] Mean Cell Hemoglobin 31.6 27.1 - 32.0 pg [facility] Mean Cell Hemoglobin Concentration 33.0 31.7 - 35.0 gm/dL [facility] Platelet 227 145 - 357 x10(3)/mc L [facility] RDW Standard Deviation 40.5 37.0 - 46.0 fL [facility] RDW coefficient of variation 11.5 11.5 - 14.1 % [facility] Mean Platelet Volume 8.4 7.6 - 12.9 fL [facility] NRBC% auto 0.0 % [facility] NRBC Absolute 0.000 0.000 - 0.000 x10(3)/mc L [facility] Blood specimen (specimen) 05/19/2016 11:32 AM EDT 05/19/2016 11:41 AM EDT Narrative Resulting Agency Comment Spec In Lab Alirio Esparza MD HEMATOLOGY ORDERABL ES Performing Organization Address City/State/[facility] Co de Phone Number [facility] [place] [address] * Antibody screen (05/19/2016 11:32 AM EDT) Ab Screen Interp Negative [facility] Expires at [id number] on: 07/03/2016 [facility] Comment: Corrected from 06/11/16 12:00 [Unknown] on 06/09/16 05:51 by Bethanie Tomlinson I.. Corrected from 07/03/16 12:00 [Unknown] on 05/21/16 06:00 by Shelia Barrera Blood specimen (specimen) 05/19/2016 11:32 AM EDT 05/19/2016 11:35 AM EDT Narrative Resulting Agency Comment Spec In Lab Alirio Esparza MD BLOOD BANK LAB ORDSylvia ALEJO [facility] [place] [address] * ABO/Rh Typing (05/19/2016 11:32 AM EDT) ABORH Type B Pos [facility] Blood specimen (specimen) 05/19/2016 11:32 AM EDT 05/19/2016 11:35 AM EDT Narrative Resulting Agency Comment Spec In Lab Alirio Esparza MD BLOOD BANK LAB BETH ALEJO Performing Organization Address City/[facility]/ZIP Co de Phone Number [facility] [place] [address] * Basic Metabolic Panel (non-fasting) (05/19/2016 11:32 AM EDT) Pathologist [facility] Glucose 86 65 - 199 mg/dL [facility] Comment:Diabetes: >=200 mg/d L plus symptoms Blood Urea Nitrogen 13 8 - 18 mg/dL [facility] Creatinine 0.95 0.70 - 1.20 mg/dL [facility] Comment: Please note that the pediatric reference intervals supplied above were not validated at [facility]. Results from pediatric patients should be interpreted in conjunction to the patient's age, height and muscle mass. Sodium 140 135 - 145 mmol/L [facility] Potassium 4.3 3.5 - 5.0 mmol/L [facility] Comment: Please note: ??Patients with WBC >100,000 may have falsely elevated Potassium levels. ??For accurate Potassium quantification in these patients send serum separator tube (gold top) for subsequent determinations. ??Contact the Clinical Chemistry Laboratory if there are any questions. Chloride 101 98 - 107 mmol/L [facility] Carbon Dioxide 27 22 - 31 mmol/L [facility] Anion Gap 12 5 - 15 mmol/L [facility] [...] the following links into your internet browser. [email or web address] Blood specimen (specimen) 05/19/2016 11:32 AM EDT 05/19/2016 11:41 AM EDT Narrative Resulting Agency Comment Spec In Lab Alirio Esparza MD CHEMISTRY ORDERABLE S [facility] [place] [id number] documented in this encounter Visit Diagnoses Diagnosis Nonrheumatic aortic valve stenosis Aortic valve disorders documented in this encounter Care Teams Used Car Make Ready Worker Relationship Specialty Start Date End Date Deborah Quiroga APRN PCP - General Family Medicine 03/24/16 02/04/23 documented as of this encounter
--- OUTSIDE RECORDS SUMMARY | 2024-03-23 14:05 | XMS_ITS | Encounter Summary ---
Author [place] [address] Care Team Providers Care Laboratory Animal Caretaker Name Role Phone Mitchell Wileks MD Primary Care Provider Reason for Visit * Reason Onset Date Comments Other 01/18/2014 Encounter Details Date Type Department Care Team (Late st Contact Info) Description 01/18/2014 Telephone Cardiology at [address] [address] Jesusita Garces Other Social History [...] PM EDT Office Visit Dermatology at [address] [address] Marek Bonilla MD [address] [place] [address] RD, [place] [address] documented as of this encounter Visit Diagnoses Not on filedocumented in this encounter Care Teams Laboratory Animal Caretaker Relationship Specialty Start Date End Date Mitchell Wilkes MD [facility] PCP - General 06/24/10 01/19/14 documented as of this encounter
--- OUTSIDE RECORDS SUMMARY | 2024-03-23 14:05 | XMS_ITS | Encounter Summary ---
Author Organization [facility] Address [facility] [place] [address] Care Team Providers Care Head Buyer Tobacco Name Role Phone Danni Laird APRN Primary Care Provider [phone] Encounter Details Date Type Department Care Team (Late st Contact Info) Description 01/23/2014 Orders Only Cardiology at [address] [address] Lee Kincaid MD [facility] [place] [address] SOB (shortness of breath) (Primary Dx) Social [...] 4:15 PM EDT Office Visit Dermatology at [place] [address] [facility] [place] [address] Marek Bonilla MD [address] [facility], TOD[address] A DERMATOLOGY [place], [place] [address] documented as of this encounter Results * Echocardiogram Transthoracic(Leb) (01/23/2014 3:17 PM EDT) EF 50 HEART[facility] SYSTEM Anatomical Region Laterality Modality Other 01/23/2014 Narrative 01/23/2014 4:35 PM EDT Procedure: ? Transthoracic Echocardiogram Patient: ? ANDREW Mejias ?(Age): 1955(58) Med Rec#: ?[id number] ? Sex: ?F ? Site Loc: ?[facility] ? Ht / Wt: ??158(cm)/93(kg) Pt. Loc: ? Adult Floor ?BSA: ?2.02 Study Date: ?01/23/2014 ? Pt. Type: Inpatient Tape: ? Referring: Lee Kincaid ([id number]) Referring: ANNALISA Furniture Decals Inspector: Miguel Beverly Diagnosis:CPT Code(s): ??Echo Full (06549), ??Spectral Doppler (34687), Color Doppler (08827), Indication(s): ??Aortic stenosis Rhythm: Sinus HR ?BP [...] ? Mid-Inferior ?Hypokinetic ? Mid-Inferoseptal ?Hypokinetic ? [place]-Septal ? Hypokinetic ? [place]-Anterior ? Hypokinetic ? [place]-Lateral ?Hypokinetic ? [place]-Inferior ? Hypokinetic ? [place]-Tip ?Hypokinetic ? Chambers ?Value ?Units (Range) ? [...] 01/23/2014 16:34:37 Images reviewed and interpretation verified [facility] Cardiac Ultrasound Laboratory Procedure Note Lee Kincaid MD - 01/23/2014 Procedure: Transthoracic Echocardiogram Patient: ANDREW Mejias (Age): 1955(58) Med Rec#: [id number] Sex: F Site Loc: [facility] Ht / Wt: 158(cm)/93(kg) Pt. Loc: Adult Floor BSA: 2.02 Study Date: 01/23/2014 Pt. Type: Inpatient Tape: Referring: Lee Kincaid ([id number]) Referring: ANNALISA Furniture Decals Inspector: Miguel Beverly Diagnosis:CPT Code(s): Echo Full (45678), Spectral Doppler (48271), Color Doppler (76259), Indication(s): Aortic stenosis Rhythm: Sinus HR BP [...] Hypokinetic Mid-Posterolateral Hypokinetic Mid-Inferior Hypokinetic Mid-Inferoseptal Hypokinetic [place]-Septal Hypokinetic [place]-Anterior Hypokinetic [place]-Lateral Hypokinetic [place]-Inferior Hypokinetic [place]-Tip Hypokinetic Chambers Value Units (Range) IVSd 2D [...] 01/23/2014 16:34:37 Images reviewed and interpretation verified [facility] Cardiac Ultrasound Laboratory Lee Kincaid MD ECHO ORDERABLES documented in this encounter Visit Diagnoses Diagnosis SOB (shortness of breath)- Primary Shortness of breath documented in this encounter Care Teams Head Buyer Tobacco Relationship Specialty Start Date End Date Danni Laird APRN [address] [place] [address] PCP - General 01/23/14 11/11/14 documented as of this encounter
--- OUTSIDE RECORDS SUMMARY | 2024-03-23 14:05 | XMS_ITS | Encounter Summary ---
[place] [address] Care Team Providers Care Helper/Driver Name Role Phone Ashley Quirogan Cornelius ANURAG Primary Care Provider [phone] Encounter Details Date Type Department Care Team (Late st Contact Info) Description 03/24/2016 Notes [place] [phone] Alfa Lua Social History Tobacco Use Types [...] assessments completed: Wadsworth Score: 6/6 IADL: 7/7 Electrician Constructor Supervisor Strength Trials: 18.4, 15.0, 16.8 (right hand dominant) 5 meter walk test in seconds x3: 4.98, 4.88, 4.45 KCCQol: 98% Alfa Lua documented in this encounter Plan of Treatment Upcoming Encounters Date Type Department Care Team (Late st Contact Info) Description 03/01/2025 4:15 PM EDT Office Visit Dermatology at [place] [address] [facility] [place] [address] Marek Bonilla MD [address] [place] [address] documented as of this encounter Visit Diagnoses Not on filedocumented in this encounter Care Teams Helper/Driver Relationship Specialty Start Date End Date Deborah Quiroga APRN PCP - General Family Medicine 03/24/16 02/04/23 documented as of this encounter
--- OUTSIDE RECORDS SUMMARY | 2024-03-23 14:05 | XMS_ITS | Encounter Summary ---
Author Organization [facility] Address [facility] [address] Care Team Providers Care Pipe Fitter Maintenance Name Role Phone JunaidAshley hargrovezac Shields APRN Primary Care Provider [phone] Reason for Visit * Consultation (Urgent) - Closed Specialty Diagnoses / Procedures Referred By Contac t Referred To Contact Cardiac Surgery Diagnoses aortic stenosis, consideration for valve replacement Antelmo Burrell MD [address] [place] [address] Alirio Esparza MD [facility] [place] [address] Referral ID Status Reason Start Date Expiration Date V isits Requested Visits Authorized [id number] Closed Connection Center 03/04/2016 03/04/2017 1 1 Encounter Details Date Type Department Care Team (Late st Contact Info) Description 03/24/2016 10:40 AM EDT Office [place] [phone] Alirio Esparza MD Aortic valve stenosis, unspecified [...] This is a patient of Antelmo Burrell [facility] Cardiology. Mrs. Thacker is being sent [...] 30 minute visit, 20 minutes were spent [id number] with the patient discussing aortic stenosis and valve replacement. documented in this encounter Plan of Treatment Upcoming Encounters Date Type Department Care Team (Late st Contact Info) Description 03/01/2025 4:15 PM EDT Office Visit Dermatology at [place] [address] [place] [address] Marek Bonilla MD [address], [place] [address] documented as of this encounter Visit Diagnoses Diagnosis Aortic valve stenosis, unspecified etiology documented in this encounter Care Teams Pipe Fitter Maintenance Relationship Specialty Start Date End Date Deborah Quiroga APRN PCP - General Family Medicine 03/24/16 02/04/23 documented as of this encounter
--- OUTSIDE RECORDS SUMMARY | 2024-03-23 14:05 | XMS_ITS | Encounter Summary ---
Author Organization [facility] [place] [address] Care Team Providers Care Aboriginal Home School Liaison Officer Name Role Phone EitanDanni ANURAG Primary Care Provider [phone] Encounter Details Date Type Department Care Team (Late st Contact Info) Description 01/22/2014 Telephone Cardiology at [address] [phone] Cynthia Arrington LPN Social History Tobacco Use [...] LPN - 01/23/2014 2:39 PM EDT This mortgage loan underwriter did not receive a call back from patient to give instructions for procedure and was admitted for cardiac catheterization today.. * Telephone Encounter - Cnythia Arrington LPN - 01/22/2014 10:52 AM EDT Placed call to patient to give instructions for procedure 01/23/14.. Left message with instructions to call back cardiology clinic. documented in this encounter Plan of Treatment Upcoming Encounters Date Type Department Care Team (Late st Contact Info) Description 03/01/2025 4:15 PM EDT Office Visit Dermatology at [place] [address] [place] [address] Marek Bonilla MD [address], [place] [address] documented as of this encounter Visit Diagnoses Not on filedocumented in this encounter Care Teams Aboriginal Home [employer] Liaison Officer Relationship Specialty Start Date End Date Danni Laird APRN [address] [place] [address] PCP - General 01/23/14 11/11/14 documented as of this encounter
--- OUTSIDE RECORDS SUMMARY | 2024-03-23 14:05 | XMS_ITS | Encounter Summary ---
Author Organization [facility] [place] [address] Care Team Providers Care Refrigeration Engineer Name Role Phone Junaid Deborah Shields APRN Primary Care Provider [phone] Encounter Details Date Type Department Care Team (Latest Contact Info) Description 05/19/2016 11:00 AM EDT Clinical Support [place] [phone] Nonrheumatic aortic valve stenosis Social History Tobacco [...] 4:15 PM EDT Office Visit Dermatology at [place] [address] [place] [address] Marek Bonilla MD [address], [place] [address] documented as of this encounter Procedures Procedure [...] (Bezet) 448 ms MUSE SYSTEM Calculated P [place] 37 degrees MUSE SYSTEM Calculated R [place] 31 degrees MUSE SYSTEM Calculated T [place] 25 degrees MUSE SYSTEM INTERPRETATION Normal sinus rhythm Normal ECG No previous ECGs available Confirmed by MD Becca, Deangelo ([id number]) on 05/19/2016 5:23:33 PM MUSE SYSTEM 05/19/2016 11:4 3 AM EDT 05/19/2016 5:23 PM EDT Alirio Esparza MD ECG ORDERABLES MUSE SYSTEM documented in this encounter Visit Diagnoses Diagnosis Nonrheumatic aortic valve stenosis Aortic valve disorders documented in this encounter Care Teams Refrigeration Engineer Relationship Specialty Start Date End Date Deborah Quiroga APRN PCP - General Family Medicine 03/24/16 02/04/23 documented as of this encounter
--- OUTSIDE RECORDS SUMMARY | 2024-03-23 14:05 | XMS_ITS | Encounter Summary ---
Author Organization formerly [place] [address] Care Team Providers Care Explosive Ordnance Technician Name Role Phone Eitan Danni ANURAG Primary Care Provider Encounter Details Date Type Department Care Team (Late st Contact Info) Description 01/23/2014 9:25 AM EDT - 01/23/2014 10:25 AM EDT [place] [address] Alan Jacobson MD [facility] [place] [address] CARDIAC CATHETERIZATION Social History Tobacco Use Types [...] by your doctor, do not take any pago-nmh-[id number] medicines or herbal preparations without first discussing this with your doctor or pharmacist. There is the possibility of side effect and interactions when these are combined. Follow up Care Who to Call with Questions or Problems If there are any questions or problems that you think might be related to your cardiac cath or angioplasty, contact the stenotypist sawmill production worker by calling [facility] at . documented in this encounter Medications [...] 4:15 PM EDT Office Visit Dermatology at [place] [address] [place] [address] Marek Bonilla MD [address], [address] [place] [address] documented as of this encounter Procedures Procedure Name Priority Date/Time Associated Diagnosis Comments ECHOCARDIOGRAM TRANSTHORACIC Routine 01/23/2014 3:17 PM EDT SOB (shortness of breath) documented in this encounter Results * Echocardiogram Transthoracic(Leb) (01/23/2014 3:17 PM EDT) Pathologist Oony EF [employer] SYSTEM Anatomical Region Laterality Modality Other 01/23/2014 Narrative 01/23/2014 4:35 PM EDT Procedure: ? Transthoracic Echocardiogram Patient: ? ANDREW ECHOLS M ?(Age): 1955(58) Med Rec#: ?[id number] ? Sex: ?F ? Site Loc: ?[facility] ? Ht / Wt: ??158(cm)/93(kg) Pt. Loc: ? Adult Floor ?BSA: ?2.02 Study Date: ?01/23/2014 ? Pt. Type: Inpatient Tape: ? Referring: Lee Kincaid ([id number]) Referring: ANNALISA Hand Spring Repairer Helper: Miguel Beverly Diagnosis:CPT Code(s): ??Echo Full (33374), ??Spectral Doppler (47384), Color Doppler (72508), Indication(s): ??Aortic stenosis Rhythm: Sinus HR ?BP [...] ? Mid-Inferior ?Hypokinetic ? Mid-Inferoseptal ?Hypokinetic ? Safford-Septal ? Hypokinetic ? [place]-Anterior ? Hypokinetic ? [place]-Lateral ?Hypokinetic ? [place]-Inferior ? Hypokinetic ? [place]-Tip ?Hypokinetic ? Chambers ?Value ?Units (Range) ? [...] 16:34:37 Images reviewed and interpretation verified [facility] Cardiac Ultrasound Laboratory Procedure Note Lee Kincaid MD - 01/23/2014 Procedure: Transthoracic Echocardiogram Patient: ANDREW Mejias (Age): 1955(58) Med Rec#: [id number] Sex: F Site Loc: [facility] Ht / Wt: 158(cm)/93(kg) Pt. Loc: Adult Floor BSA: 2.02 Study Date: 01/23/2014 Pt. Type: Inpatient Tape: Referring: Lee Kincaid ([id number]) Referring: [facility] Hand Spring Repairer Helper: Miguel Beverly Diagnosis:CPT Code(s): Echo Full (16375), Spectral Doppler (99613), Color Doppler (24258), Indication(s): Aortic stenosis Rhythm: Sinus HR BP [...] Hypokinetic Mid-Posterolateral Hypokinetic Mid-Inferior Hypokinetic Mid-Inferoseptal Hypokinetic Safford-Septal Hypokinetic Safford-Anterior Hypokinetic S[place]ord-Lateral Hypokinetic S[place]-Inferior Hypokinetic S[place]-Tip Hypokinetic Chambers Value Units (Range) IVSd 2D [...] 16:34:37 Images reviewed and interpretation verified [facility] Cardiac Ultrasound [facility] Lee Kincaid MD ECHO [...] RN) documented in this encounter Care Teams Explosive Ordnance Technician Relationship Specialty Start Date End Date Danni Laird APRN [address] [place] [address] PCP - General 01/23/14 11/11/14 documented as of this encounter
[2024-03-23 14:06] VITALS: BP 108/61; PULSE 85
[2024-03-28 14:20] VITALS: BP 104/49; PULSE 77
--- OUTSIDE RECORDS SUMMARY | 2024-03-28 14:26 | XMS_ITS | Encounter Summary ---
Author Organization [facility] Address [address] [place] [address] Care Team Providers Care Supervisor Matrix Name Role Phone Ashley Chavez Primary Care Provider Encounter Details Date Type Department Care Team (Late st Contact Info) Description 05/12/2022 Lab Requisition [facility] Pathology & Laboratory Medicine - [address] [address] Outr Resulting Lab, Provider Social History Tobacco [...] 14:32 EDT) Hold Hold 05/12/2022 22:46 EDT [facility] Blood VENOUS BLOOD / Unknown 05/12/2022 14:32 EDT 05/12/2022 21:40 EDT Provider Outr Resulting Lab LAB INFO SER VICE AND SUPPORT & PHONE RESULT Performing Organization Address [facility]/ZIP Co de Phone Number [facility] [address] [place] [address] * (ABNORMAL) HOMOCYSTEINE (05/12/2022 14:32 EDT) Homocysteine 14.7(H) 5.0 - 13.9 umol/L 05/13/2022 9:05 EDT [facility] Comment:Results may be false ly elevated if sample is not collected on ice or is not removed from cells within 1 hour of collection. Blood VENOUS BLOOD / Unknown 05/12/2022 14:32 EDT 05/12/2022 21:40 EDT Narrative [facility] - 05/13/2022 9:05 EDT [...] Organization Address [facility] Co de Phone Number [facility] [address] [place] [address] * HAPTOGLOBIN (05/12/2022 14:32 EDT) Pathologist [facility] Haptoglobin 138 32 - 197 mg/dL 05/13/2022 9:55 EDT [facility] Blood VENOUS BLOOD / Unknown 05/12/2022 14:32 EDT 05/12/2022 21:36 EDT Provider Outr Resulting Lab CHEMISTRY & BLOOD GAS ORDERABLES Performing Organization Address [facility] Co de Phone Number [facility] [address] [place] [address] * (ABNORMAL) ANTI NUCLEAR AB (FRANCISCO), IFA (05/12/2022 14:32 EDT) FRANCISCO Interpretation Positive(A) Negative 05/13/2022 14:44 EDT [facility] Comment: Result is [...] Pattern 1 1:5120 Speckled 05/13/2022 14:44 EDT [facility] Blood VENOUS BLOOD / Unknown 05/12/2022 14:32 EDT 05/12/2022 21:36 EDT Narrative [facility] - 05/13/2022 14:44 EDT Results were obtained with the INOVA NOVA Lite HEp-2 FRANCISCO Kit by indirect immunofluorescence. Provider Outr Resulting Lab IMMUNOLOGY A ND SEROLOGY ORDERABLES [facility] [address] [place] [address] documented in this encounter Visit Diagnoses Not on filedocumented in this encounter Care Teams Supervisor Matrix Relationship Specialty Start Date End Date Ashley Chavez ARNP [address] [place] [address] PCP - General 07/11/10 documented as of this encounter
--- OUTSIDE RECORDS SUMMARY | 2024-03-28 14:26 | XMS_ITS | Referral Summary ---
Author Organization [facility] Address [address] [place] [address] Care Team Providers Care Technical Service Representative Name Role Phone Ashley Chavez Primary Care Provider [phone] Encounters Date Type Department Care Team Description 03/22/2024 Lab Requisition [facility] Pathology & Laboratory [address] [address] Consuelo Guerrero, DO Diaphragmatic hernia without obstruction or gangrene; Anemia, unspecified 03/21/2024 Lab Requisition [facility] Pathology & Laboratory [address] [address] Consuelo Guerrero DO Encounter for other general examination 03/21/2024 Lab Requisition [facility] Pathology & Laboratory [address] [address] Outr Resulting Lab, Provider from Last 3 [...] general examination HAPTOGLOBIN Routine 03/21/2024 13:00 EDT SURGICAL PATHOLOGY Today 03/21/2024 11 :35 EDT Diaphragmatic hernia without obstruction or gangrene Anemia, unspecified from Last 3 Months Results * DIRECT ANTIGLOBULIN TEST (03/21/2024 13:00 EDT) LORY Negative 03/21/2024 22:31 EDT [facility] Blood VENOUS BLOOD / Unknown 03/21/2024 13:00 EDT 03/21/2024 21:51 EDT Consuelo Guerrero DO BLOOD BANK TESTS Performing Organization Address [facility] Co de Phone Number [facility] [address] [place] [address] * HAPTOGLOBIN (03/21/2024 13:00 EDT) Haptoglobin 183 32 - 197 mg/dL 03/22/2024 10:25 EDT [facility] Blood VENOUS BLOOD / Unknown 03/21/2024 13:00 EDT 03/21/2024 21:50 EDT Provider Outr Resulting Lab CHEMISTRY & BLOOD GAS ORDERABLES Performing Organization Address [facility] Co de Phone Number [facility] [address] [place] [address] * SURGICAL PATHOLOGY (03/21/2024 11:35 EDT) Note to Patient The following pathology results have been interpreted by your pathologist and may be available to you before your health provider has had the opportunity to review them. Please allow time for your provider to receive these results and explore management options, if applicable. 03/24/2024 10:36 EDT [facility] Final Diagnosis A. JEJUNUM, PROXIMAL, BIOPSY: - Enteric mucosa with no specific pathologic features. B. DUODENAL BULB, BIOPSY: - Duodenal mucosa with no specific pathologic features. C. STOMACH, ANTRUM, BIOPSY: - Gastric mucosa with mild reactive (chemical) gastropathy. - Negative for Helicobacter pylori on H&E stained sections. D. GASTROESOPHAGEAL JUNCTION, BIOPSY: - Gastric oxyntic mucosa with no specific pathologic features. - Squamous mucosa with mild reactive change. - Negative for dysplasia and intestinal metaplasia. E. ESOPHAGUS, DISTAL, BIOPSY: - Squamocolumnar mucosa with mild reactive changes. - Negative for dysplasia and intestinal metaplasia. F. COLON, CECUM, BIOPSY: - Tubular adenoma. G. COLON, POLYP, 80 CM, BIOPSY: - Tubular adenoma. - Deeper sections x3 examined. 03/24/2024 10:36 [facility] Attestation There was significant resident/fellow involvement in the diagnostic evaluation of this case. By the signature below, the attending physician certifies that they have personally conducted a gross and/or microscopic examination of the described specimens and rendered or confirmed the above diagnosis. 03/24/2024 10:36 [facility] at 1036 Clinical History Anemia, hiatal hernia, 38 cm aguayo diverticulosis 03/24/2024 10:36 [facility] Gross Description A. Received in formalin labelled with proper patient identification (initials P, E) and proximal jejunum bx is a single firm yellow-niño tissue fragment (0.7 x 0.4 x 0.1 cm). Submitted intact in A1. B. Received in formalin labelled with proper patient identification (initials P, E) and duodenal bulb bx is a single soft niño focally brown tissue fragment (0.4 x 0.2 x 0.1 cm). Submitted intact in B1. C. Received in formalin labelled with proper patient identification (initials P, E) and antrum bx is a single firm niño focally brown tissue fragment (0.7 x 0.4 x 0.1 cm). Submitted intact in C1. D. Received in formalin labelled with proper patient identification (initials P, E) and G E junction are 4 firm niño tissues (0.3 x 0.2 x 0.1 cm to 0.4 x 0.3 x 0.2 cm). Entirely submitted in D1. E. Received in formalin labelled with proper patient identification (initials P, E) and distal esophagus bx is a single firm niño focally brown tissue fragment (0.5 x 0.2 x 0.1 cm). Submitted intact in E1. F. Received in formalin labelled with proper patient identification (initials P, E) and cecal polyp is a single firm niño focally brown tissue fragment (0.5 x 0.4 x 0.3 cm). Submitted intact in F1. G. Received in formalin labelled with proper patient identification (initials P, E) and colon polyp @ 80 cm is a single soft niño focally brown tissue fragment (0.5 x 0.3 x 0.2 cm). Submitted intact in G1. Luis Torres 03/22/2024 9:36 03/24/2024 10:36 EDT [facility] Resident/Estuardo w: Luis Felipe Bragg DO 03/24/2024 10:36 EDT [facility] Performing Lab [facility] 10:36 EDT [facility] Scanned Images 03/24/2024 10:36 EDT [facility] Tissue POLYP OF COLON / Unknown 03/21/2024 11:35 EDT 03/22/2024 8:19 EDT Tissue specimen (specimen) DUODENAL AMPULLA STRUCTURE / Unknown 03/21/2024 11:35 EDT 03/22/2024 8:19 EDT Tissue specimen (specimen) PYLORIC ANTRUM STRUCTURE / Unknown 03/21/2024 11:35 EDT 03/22/2024 8:19 EDT Tissue specimen (specimen) CARDIOESOPHAGEAL JUNCTION STRUCTURE / Unknown 03/21/2024 11:35 EDT 03/22/2024 8:19 EDT Tissue specimen (specimen) ESOPHAGEAL STRUCTURE / Unknown 03/21/2024 11:35 EDT 03/22/2024 8:19 EDT Tissue specimen (specimen) POLYP OF COLON / Unknown 03/21/2024 11:35 EDT 03/22/2024 8:19 EDT Tissue specimen (specimen) POLYP OF COLON / Unknown 03/21/2024 11:35 EDT 03/22/2024 8:19 EDT Consuelo Guerrero DO PATHOLOGY ORDERABLES [facility] [address] [place] [phone] from Last 3 Months Care Teams Technical Service Representative Relationship Specialty Start Date End Date Ashley Chavez ARNP [address] [place] [address] PCP - General 07/11/10
--- OUTSIDE RECORDS SUMMARY | 2024-03-28 14:26 | XMS_ITS | Encounter Summary ---
Author Organization [facility] Address [address] [place] [address] Care Team Providers Care Hosiery Pairer Name Role Phone Unavailable Primary Care Provider Unavailabl e Encounter Details Date Type Department Care Team (Late st Contact Info) Description 07/08/2010 10:55 EST - 07/08/2010 10:56 EST Hospital Encounter [facility] - Other [address] [place] [address] Ashley Chavez, WILLIAM [address] [place] [address] Discharge Disposition: Home or Self Care Social [...]
--- OUTSIDE RECORDS SUMMARY | 2024-03-28 14:26 | XMS_ITS | Encounter Summary ---
[place] [address] Care Team Providers Care Computer Aided Drafter Name Role Phone Magdalena Acosta MD Primary Care Provider [phone] Encounter Details Date Type Department Care Team [...] PM EDT Office Visit Dermatology at [place] [address] [place] [address] Marek Bonilla MD [address], TODD A [place]ERMATOLOGY [place], [place] [id number] documented as of this encounter Visit Diagnoses Not on filedocumented in this encounter Care Teams Computer Aided Drafter Relationship Specialty Start Date End Date Magdalena Acosta MD [address] [place] [address] PCP - General Family Medicine 02/05/23 documented as of this encounter
--- OUTSIDE RECORDS SUMMARY | 2024-03-28 14:26 | XMS_ITS | Encounter Summary ---
Author Organization [facility] Address [address] [place] [address] Care Team Providers Care Instrumentation Fitter Name Role Phone Scott, Ashley WILLIAM Primary Care Provider [phone] Encounter Details Date Type Department Care Team (Late st Contact Info) Description 12/23/2016 Results Only [facility] [phone] Deborah Quiroga, POSTDOCTORAL RESEARCH FELLOW [address] [place] [phone] Social History Tobacco Use Types Packs/Day Years [...] ? 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 Accession #: ? [id number] ? : ? 1955 (Age: 61) ??F ?Collect Date: ? 12/23/2016 ? Location: ? [facility] ? Receive Date: ? 12/25/2016 ? Provider: DEBORAH QUIROGA DEHYDROGENATION OPERATOR HEAD Copy to: ? Final Report SPECIMEN ADEQUACY ? Satisfactory for Evaluation - transformation zone component present GENERAL CATEGORIZATION ? Negative for Intraepithelial Lesion or Malignancy ?? Last Menstrual Period: years Specimen/Source: ??Pap Test, Cervix, ThinPrep Imaging System with manual evaluation Document reviewed and electronically signed by: ? Monica Cason [facility](ASCP) ? Report ??Date: 01/06/2017 09:11 HPV with Pap Test ? Date Ordered: ? 01/06/2017 ? Status: ?? Signed Out ?Date Complete: ? 01/07/2017 ? By: ??System Interface ? Date Reported: ? 01/07/2017 ? Interpretation RESULT: Negative for HPV. No E6 or E7 mRNA is detected from HPV types 16,18,31,33,35, 39,45,51,52,56,58, 59,66, and 68 by charge authorizer mediated amplification. Comments Document reviewed and electronically signed by: ? System Interface ? Report date: 01/07/2017 By the signature above, the attending physician certifies that he/she has personally conducted a gross and/or microscopic examination of the described specimens and rendered or confirmed the above diagnosis. End of Report [facility] 12/23/2016 12/25/2016 Deborah Quiroga POSTDOCTORAL RESEARCH FELLOW PATHOLOGY ORDERABLES [facility] [address] [place] [address] documented in this encounter Visit Diagnoses Not on filedocumented in this encounter Care Teams Instrumentation Fitter Relationship Specialty Start Date End Date Ashlye Chavez ARNP [address] [place] [address] PCP - General 07/11/10 documented as of this encounter
--- OUTSIDE RECORDS SUMMARY | 2024-03-28 14:26 | XMS_ITS | Encounter Summary ---
Author Organization [facility] Address [address] [place] [address] Care Team Providers Care Maxillofacial Prosthetics Dentist Name Role Phone Unavailable Primary Care Provider Unavailabl e Encounter Details Date Type Department Care Team (Late st Contact Info) Description 07/08/2010 Results Only [facility] Non-Invasive Cardiology - [facility] [address] [place] [address] Ashley Chavez, WILLIAM [address] [place] [address] Social History Tobacco Use Types Packs/Day Years [...] ? 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 Accession #: ? [id number] ? : ? 1955 (Age: 54) ??F [...] Ashley THOMAS PATHOLOGY ORDERABLES PAUL ARELLANO [address] [place] [address] documented in this encounter Visit Diagnoses Not on filedocumented in this encounter
--- OUTSIDE RECORDS SUMMARY | 2024-03-28 14:26 | XMS_ITS | Encounter Summary ---
Author Organization [facility] Address [address] [place] [address] Care Team Providers Care Wellfield Technician Name Role Phone Ashley Chavez Primary Care Provider [phone] Encounter Details Date Type Department Care Team (Late st Contact Info) Description 10/30/2022 Lab Requisition [facility] Pathology & Laboratory Medicine - [address] [address] Outr Resulting Lab, Provider Social History Tobacco [...] Stranded) <12.3 <30.0 IU/mL 11/03/2022 13:08 EDT [facility] Comment: ? Negative: ??<30.0 IU/mL ? Borderline Positive: ??30.0 - 75.0 IU/mL ? Positive: ??>75.0 IU/mL Results were obtained with the INOVA QUANTA Lite dsDNA SC DOMO assay on the IMNEXT DSX. Blood VENOUS BLOOD / Unknown 10/29/2022 14:00 EDT 10/30/2022 19:27 EDT Provider Outr Resulting Lab IMMUNOLOGY A ND SEROLOGY ORDERABLES Performing Organization Address [facility] de Phone Number [facility] [address] [place] [address] * SM ([place]ENO) ANTIBODY (10/29/2022 14:00 EDT) [facility] SM ([place]) Antibody 18.5 <20.0 Units 11/03/2022 14:26 EDT [facility] Comment: ? [...] A ND SEROLOGY ORDERABLES Performing Organization Address [facility] de Phone Number [facility] [address] [place] [address] documented in this encounter Visit Diagnoses Not on filedocumented in this encounter Care Teams Well[place] Technician Relationship Specialty Start Date End Date Ashley Chavez ARNP [address] [place] [address] PCP - General 07/11/10 documented as of this encounter
--- OUTSIDE RECORDS SUMMARY | 2024-03-28 14:26 | XMS_ITS | Encounter Summary ---
Author Organization [facility] Address [address] [place] [address] Care Team Providers Care Roll Plugger Name Role Phone Ashley Chavez Primary Care Provider [phone] Encounter Details Date Type Department Care Team (Late st Contact Info) Description 03/21/2024 Lab Requisition [facility] Pathology & Laboratory Medicine - [address] [id number] Outr Resulting Lab, Provider Social History Tobacco [...] 32 - 197 mg/dL 03/22/2024 10:[address] [facility] Blood VENOUS BLOOD / Unknown 03/21/2024 13:00 EDT 03/21/2024 21:50 EDT Provider Outr Resulting Lab CHEMISTRY & BLOOD GAS ORDERABLES [facility] [address] [place] [address] documented in this encounter Visit Diagnoses Not on filedocumented in this encounter Care Teams Roll Plugger Relationship Specialty Start Date End Date Ashley Chavez ARNP [address] [place] [address] PCP - General 07/11/10 documented as of this encounter
--- OUTSIDE RECORDS SUMMARY | 2024-03-28 14:26 | XMS_ITS | Clinical Summary ---
Author Organization [facility] Address [address] [place] [address] Care Team Providers Care Travel Guide Name Role Phone Ashley Chavez Primary Care Provider [phone] Encounters Date Type Department Care Team Description 03/22/2024 Lab Requisition [facility] Pathology & Laboratory [address] [address] Consuelo Guerrero, DO Diaphragmatic hernia without obstruction or gangrene; Anemia, unspecified 03/21/2024 Lab Requisition [facility] Pathology & Laboratory [address] [address] Consuelo Guerrero, DO Encounter for other general examination 03/21/2024 Lab Requisition [facility] Pathology & Laboratory [address] [address] Outr Resulting Lab, Provider from Last 3 [...] 13:00 EDT) LORY Negative 03/21/2024 22:[address] [facility] Blood VENOUS BLOOD / Unknown 03/21/2024 13:00 EDT 03/21/2024 21:51 EDT Consuelo Guerrero DO BLOOD BANK TESTS Performing Organization Address [facility] Co de Phone Number [facility] [address] [place] [address] * HAPTOGLOBIN (03/21/2024 13:00 EDT) Haptoglobin 183 32 - 197 mg/dL 03/22/2024 10:[address] [facility] Blood VENOUS BLOOD / Unknown 03/21/2024 13:00 EDT 03/21/2024 21:50 EDT Provider Outr Resulting Lab CHEMISTRY & BLOOD GAS ORDERABLES Performing Organization Address [facility]/ZIP Co de Phone Number [facility] [address] [place], [place] [address] * SURGICAL PATHOLOGY (03/21/2024 11:35 EDT) Note to Patient The following pathology results have been interpreted by your pathologist and may be available to you before your health provider has had the opportunity to review them. Please allow time for your provider to receive these results and explore management options, if applicable. 03/24/2024 10:[address] [facility] Final Diagnosis A. JEJUNUM, [...] - Deeper sections x3 examined. 03/24/2024 10:36 [facility] Attestation There was significant resident/fellow involvement in the diagnostic evaluation of this case. By the signature below, the attending physician certifies that they have personally conducted a gross and/or microscopic examination of the described specimens and rendered or confirmed the above diagnosis. 03/24/2024 10:36 [facility] at [address]36 Clinical History Anemia, hiatal hernia, 38 cm aguayo diverticulosis 03/24/2024 10:36 [facility] Gross Description A. Received in [...] Luis Torres 03/22/2024 9:36 03/24/2024 10:[address] [facility] Resident/Estuardo w: Luis Felipe Bragg DO 03/24/2024 10:[address] [facility] Performing Lab [facility] 10:[address] [facility] Scanned Images 03/24/2024 10:[address] [facility] Tissue POLYP OF COLON [...] 8:19 EDT Consuelo Guerrero DO PATHOLOGY ORDERABLES [facility] [address] [place] [address] from Last 3 Months Care Teams Travel Guide Relationship Specialty Start Date End Date Ashley Chavez ARNP [address] [place] [address] PCP - General 07/11/10
--- OUTSIDE RECORDS SUMMARY | 2024-03-28 14:26 | XMS_ITS | Clinical Summary ---
Author Organization [facility] Address [facility] [place] [address] Care Team Providers Care Sorter Pricer Name Role Phone Magdalena Acosta MD Primary Care Provider [phone] Allergies No known active allergies Medications Medication [...] Mild coronary artery disease by [facility] 11/09/2022 Heart failure with reduced e jection [...] Care Team Description 03/01/2024 Telephone Cardiology at [address] [address] Cynthia Monsalve RN Pre Procedure Call (DAPT hold for EGD and colo?) 02/22/2024 4:15 PM EDT Office Visit Dermatology at [address] [address] Marek Bonilla MD Seborrheic keratosis; [...] 4:15 PM EDT Office Visit Dermatology at [place] [address] [facility] [place] [address] Marek Bonilla MD [address], TODD Murphy [place]MAT[place] [address] Health Maintenance Due Date Last Done Comments [...] 06/05/2036 06/05/2021 Medical Devices Implanted Type Area Pleat Patternmaker Device Identifier Shelf Expiration Date Model / Serial / Lot Valve,Aor,Pericar d,Magna,25mm ([id number]) - [id number] Implanted:Qty: 1 on 09/21/2016 by Alirio Esparza MD at [facility] IMPLANTS N/A: Heart DO NOT USE [employer] - [id number] 06/02/2020 [id number] / / [id number] Cable,Blnt,Ss,38i n ([id number]) - [id number] Implanted:Qty: 4 on 09/21/2016 by Alirio Esparza MD at [facility] IMPLANTS N/A: Chest [employer] - [id number] 04/29/2021 [id number] / / [id number] Patch,Cav,Pericar d,2x5cm ([id number]) (Autoreq) - [id number] Implanted:Qty: 1 on 09/21/2016 by Alirio Esparza MD at [facility] IMPLANTS N/A: Heart DO NOT USE [employer] - [id number] 04/21/2018 [id number] / / [id number] Tavr-05/12/2023 Implanted:Qty: 1 on 05/12/2023 by Antelmo Sharma MD Other Heart [employer] - JAIME LI [id number] / [id number] / Description:JAIME LIFES[employer] NCES ABBY 3 ULTRA [...] Urea Nitrogen 19(H) 8 - 18 mg/dL [facility] Creatinine 0.81 0.70 - 1.20 mg/dL [facility] Sodium 142 135 [...] questions. Chloride 104 98 - 107 mmol/L [facility] Carbon Dioxide 26 [...] CHEMISTRY ORDERABLE S Performing Organization Address City/State/[facility] Co de Phone Number [facility] [place] [address] * DXA Central Spine, Hip, and/or Whole Body (Generic) (06/05/2021 11:58 AM EDT) PT CLASS O RAD ADMITDTTM RAD PT RAD INFO [id number]^E VERETT^DEBORAH ^E RAD EXAM DESC XDXAC^DEXA SCAN [...] who have questions please contact the health caretaker grounds that requested your imaging first. ? Electronically signed by: Rocael Villatoro MD, [facility] ([phone]), at 06/05/2021 12:00 PM Narrative 06/05/2021 12:00 [...] patients who have questions please contactthe health caretaker grounds that requested your imaging first. Electronically signed by: Rocael Villatoro MD, [facility]([phone]), at 06/05/2021 12:00 PM Deborah Quiroga HOOP MAKER IMG DEXA ORDERABLES * Mammo Screening Cad Bilateral (06/05/2021 11:42 AM EDT) PT CLASS O DH RAD ADMITDTTM DH RAD PT DH RAD INFO [id number]^EV ERETT^DEBORAH^E DH RAD EXAM DESC MADDSC^SCREEN MAMMO [...] who have questions please contact the health caretaker grounds that requested your imaging first. ? Electronically signed by: Rocael Villatoro MD, [facility] ([phone]), at 06/05/2021 1:27 PM Narrative 06/05/2021 1:27 [...] patients who have questions please contactthe health caretaker grounds that requested your imaging first. Electronically signed by: Rocael Villatoro MD, [facility]([phone]), at 06/05/2021 1:27 PM Deborah Quiroga APRN [...] capacity to make decision: Yes Care Teams Sorter Pricer Relationship Specialty Start Date End Date Magdalena Acosta MD [address] [place] [address] PCP - General Family Medicine 02/05/23
--- OUTSIDE RECORDS SUMMARY | 2024-03-28 14:26 | XMS_ITS | Encounter Summary ---
Author Organization [facility] Address [address] [place] [address] Care Team Providers Care Material Yard Clerk Name Role Phone Ashley Chaevz Primary Care Provider [phone] Encounter Details Date Type Department Care Team (Late st Contact Info) Description 04/29/2022 Lab Requisition [facility] Pathology & Laboratory Medicine - [address] [address] Outr Resulting Lab, Provider Social History Tobacco [...] Antibody 1.6 <20.0 Units 04/30/2022 12:23 EDT [facility] Comment: ? Negative: [...] A ND SEROLOGY ORDERABLES Performing Organization Address [facility] de Phone Number [facility] [address] [place] [address] * SSA ANTIBODIES BY DOMO (04/29/2022 7:51 EDT) SSA Antibody 1.5 <20.0 Units 04/30/2022 12:22 EDT [facility] Comment: ? Negative: [...] A ND SEROLOGY ORDERABLES Performing Organization Address [facility] de Phone Number [facility] [address] [place] [address] documented in this encounter Visit Diagnoses Not on filedocumented in this encounter Care Teams Material Yard Clerk Relationship Specialty Start Date End Date Ashley Chavez ARNP [address] [place] [address] PCP - General 07/11/10 documented as of this encounter
--- OUTSIDE RECORDS SUMMARY | 2024-03-28 14:26 | XMS_ITS | Encounter Summary ---
Author Organization [facility] Address [address] [place] [address] Care Team Providers Care Scarrer Name Role Phone Ashley Chavez Primary Care Provider [phone] Encounter Details Date Type Department Care Team (Late st Contact Info) Description 01/07/2023 Lab Requisition [facility] Pathology & Laboratory Medicine - [address] [address] Outr Resulting Lab, Provider Social History Tobacco [...] 56.2 55.8 - 66.1 % 01/08/2023 11:28 [facility] Albumin g/dL 3.9 3.6 - 5.2 g/dL 01/08/2023 11:28 [facility] Alpha-1 % 5.1(H) 2.9 - 4.9 % 01/08/2023 11:28 [facility] Alpha-1 g/dL 0.40 0.15 - 0.40 g/dL 01/08/2023 11:28 [facility] Alpha-2 % 7.0(L) 7.1 - 11.8 % 01/08/2023 11:28 [facility] Alpha-2 g/dL 0.50 0.50 - 1.00 g/dL 01/08/2023 11:28 [facility] Beta % 12.7 8.4 - 13.1 % 01/08/2023 11:28 [facility] Beta g/dL 0.90 0.60 - 1.20 g/dL 01/08/2023 11:28 [facility] Gamma % 19.0(H) 11.1 - 18.8 % 01/08/2023 11:28 [facility] Gamma g/dL 1.30 0.60 - 1.60 g/dL 01/08/2023 11:28 [facility] SPEP Comment No apparent monoclonal protein seen on serum electrophoresis 01/08/2023 11:28 [facility] Comment:See scanned/suppleme ntary report. Total Protein 6.9 6.3 - 8.2 g/dL 01/08/2023 11:28 [facility] Blood VENOUS BLOOD / Unknown 01/06/2023 14:40 EDT 01/07/2023 17:37 EDT Provider Outr Resulting Lab CHEMISTRY & BLOOD GAS ORDERABLES Performing Organization Address City/State/[facility] Co de Phone Number [facility] [address] [place] [address] * PROTEIN, TOTAL (01/06/2023 14:40 EDT) Blood VENOUS BLOOD / Unknown 01/06/2023 14:40 EDT 01/07/2023 17:37 EDT Provider Outr Resulting Lab CHEMISTRY & BLOOD GAS ORDERABLES Performing Organization Address [facility] Co de Phone Number [facility] [address] [place] [address] * (ABNORMAL) EXTRACTABLE NUCLEAR ANTIGEN PANEL (01/06/2023 14:40 EDT) SSA Antibody 1.3 <20.0 Units 01/08/2023 15:42 EDT [facility] Comment: ? Negative: [...] Antibody 1.5 <20.0 Units 01/08/2023 15:42 EDT [facility] Comment: ? Negative: [...] Antibody 15.3 <20.0 Units 01/08/2023 15:42 EDT [facility] Comment: ? Negative: <20.0 Units ? Weak Positive: 20.0 - 39.9 Units ? Moderate Positive: 40.0 - 80.0 Units ? Strong Positive: >80.0 Units Results were obtained with the UNXVA QUANTA Lite Sm DOMO. ??Sm values obtained with different manufacturers' assay methods may not be used interchangeably. ??The magnitude of the reported IgG levels cannot be correlated to an endpoint titer. LIBRARY ASSOCIATE Antibody 149.1(H) <20.0 Units 01/08/2023 15:42 EDT [facility] Comment: ? Negative: <20.0 Units ? Weak Positive: 20.0 - 39.9 Units ? Moderate Positive: 40.0 - 80.0 Units ? Strong Positive: >80.0 Units Results were obtained with the MiSiedova Quanta Lite LIBRARY ASSOCIATE DOMO. LIBRARY ASSOCIATE values obtained with different commodity analyst's assay methods may not be used interchangeaby. ??The magnitude of the reported IgG levels cannot be be correlated to an endpoint titer. A positive result in the Quanta Lite LIBRARY ASSOCIATE DOMO indicates the presence of antibodies reactive with the LIBRARY ASSOCIATE/Sm complex but cannot distinguish between anti-Sm and anti-LIBRARY ASSOCIATE activity. Blood VENOUS BLOOD / Unknown 01/06/2023 14:40 EDT 01/07/2023 17:37 EDT Provider Outr Resulting Lab IMMUNOLOGY A ND SEROLOGY ORDERABLES [facility] [address] [place] [address] * (ABNORMAL) ANTI NUCLEAR AB (FRANCISCO), IFA (01/06/2023 14:40 EDT) FRANCISCO Interpretation Positive(A) Negative 01/08/2023 15:22 EDT [facility] Comment: Result is [...] Pattern 1 1:5120 Speckled 01/08/2023 15:22 EDT [facility] Blood VENOUS BLOOD / Unknown 01/06/2023 14:40 EDT 01/07/2023 17:37 EDT Narrative [facility] - 01/08/2023 15:22 EDT Results were obtained with the INOVA NOVA Lite HEp-2 FRANCISCO Kit by indirect immunofluorescence. Provider Outr Resulting Lab IMMUNOLOGY A ND SEROLOGY ORDERABLES Performing Organization Address City/State/[facility] Co de Phone Number [facility] [address] [place] [address] documented in this encounter Visit Diagnoses Not on filedocumented in this encounter Care Teams Scarrer Relationship Specialty Start Date End Date Ashley Chavez ARNP [address] [place] [address] PCP - General 07/11/10 documented as of this encounter
--- OUTSIDE RECORDS SUMMARY | 2024-03-28 14:26 | XMS_ITS | Encounter Summary ---
Author Organization [facility] Address [address] [place] [address] Care Team Providers Care Colorist Dyer Name Role Phone Unavailable Primary Care Provider Unavailabl e Encounter Details Date Type Department Care Team (Late st Contact Info) Description 04/20/2005 Results Only [facility] [address] [place] [address] Ziggy Valiente MD [address] [place] [id number] Social History Tobacco Use Types Packs/Day Years [...] ? 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 Accession #: ? [id number] ? : ? 1955 (Age: 49) ??F [...] correlation with endoscopic appearance is recommended. (Dr. Chino)/[facility] Document reviewed and electronically signed by: TYRON [...] is entirely submitted in one cassette. ??(Arabella Santos)/[facility] End of Report PAUL ARELLANO 04/20/2005 04/21/2005 15: 04 EDT Ziggy Valiente MD PATHOLOGY ORDERABLES PAUL ARELLANO [address] [place] [address] documented in this encounter Visit Diagnoses Not on filedocumented in this encounter
--- OUTSIDE RECORDS SUMMARY | 2024-03-28 14:26 | XMS_ITS | Encounter Summary ---
Author Organization [facility] Address [address] [place] [address] Care Team Providers Care Dsp Engineer Name Role Phone Ashley Chavez Primary Care Provider [phone] Encounter Details Date Type Department Care Team (Late st Contact Info) Description 06/23/2016 Results Only [facility] [phone] Matthew Acevedo, DO [address] [facility] [place] [address] [place] [address] Social History Tobacco Use Types Packs/Day [...] ? 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 Accession #: ? [id number] : ? 1955 (Age: 60) ??F ?Collect Date: ? 06/23/2016 Location: ? [facility] ? Receive Date: ? 06/24/2016 Provider: ? MATTHEW ACEVEDO DO Copy to: ?WINTER TITUSP MARIO ALBERTO GATES MD ? INTERPRETATION: Normal female karyotype. There is no cytogenetic evidence of a clonal population. ? Document reviewed and electronically signed by: ? ELDA ILMA MD ? Report Date: ??07/03/2016 12:44 CLINICAL HISTORY: 60 yo female with leukopenia SPECIMEN: Bone marrow TEST PERFORMED: G-banded Karyotype ?? REPORT: No. Cells Counted: ??25 No. Cells Analyzed: ??25 No. Cells Karyotyped: ??25 Band Resolution: ??400 ?? KARYOTYPE: 46,XX[25] End of Report [facility] 06/23/2016 06/24/2016 Matthew Acevedo DO PATHOLOGY ORDER JODIE [facility] [address] [place] [address] * FLOW CYTOMETRY (06/23/2016 0:00 EST) Pathology Report: FLOW CYTOMETRY REPORT Reports generated via electronic interface contain original data; however they are lacking the format of the original report. Caution should be taken when reading/interpreting unformatted reports. Name: ? 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 Accession #: ? [id number] : ? 1955 (Age: 60) ??F ?Collect Date: ? 06/23/2016 00:00 Location: ? [facility] ? Receive Date: ? 06/24/2016 08:00 Provider: ?MATTHEW ACEVEDO DO Copy to: ?WINTER HANKINS DRILLER AND REAMER MARIO ALBERTO RAMOS MD ? FINAL IMMUNOPHENOTYPIC INTERPRETATION: ? Bone marrow, flow cytometric analysis: -No immunophenotypic evidence of a clonal cell population. ??See comment. ? COMMENT: The results of flow cytometry show no immunophenotypic evidence of involvement by a clonal lymphoproliferative or myeloproliferative disorder. ??Correlation of these findings with morphologic and clinical data is essential. ??Please refer to pathology report number [id number] for morphologic details. ? Document reviewed and [...] the Department of Pathology and Laboratory Medicine, [place], [place] ??It has not been cleared or [...] clinical laboratory testing. End of Report ?? [facility] 06/23/2016 06/24/2016 8:0 0 EST Matthew Acevedo DO PATHOLOGY ORDER JODIE [facility] [address] [place] [address] * BONE MARROW/HEMPATH CONSULT (06/23/2016 0:00 EST) Pathology Report: BONE MARROW REPORT Reports generated via electronic interface contain original data; however they are lacking the format of the original report. Caution should be taken when reading/interpreting unformatted reports. Name: ? 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 Accession #: ? [id number] : ? 1955 (Age: 60) ??F ?Collect Date: ? 06/23/2016 Location: ? [facility] ? Receive Date: ? 06/24/2016 Provider: ? MATTHEW ACEVEDO DO Copy to: ?WINTER HANKINS DRILLER AND REAMER MARIO ALBERTO RAMOS MD ? DIAGNOSIS: Peripheral [...] #1: Aggregate biopsy length: 8 mm with apprentice lineman third step trabeculae of lamellar bone, cellular bone marrow, [...] SEE ABOVE DISCUSSION Lambda (polyclonal, Dako) ??(B1): Mcclelland (polyclonal, Dako) ??(B1): Biopsy (decalcified) #2: Aggregate biopsy length: 8 mm with apprentice lineman third step trabeculae of lamellar bone, cellular bone marrow, [...] (M115, Leica) ??(B2): Lambda (polyclonal, Dako) ??(B2): Mcclelland (polyclonal, Dako) ??(B2): NOTE: ??One or more [...] performance characteristics have been determined by [facility]. ??The positive and negative controls [...] ? 1% Blasts ?1% Special Studies Cytogenetics ([id number]): Pending. Flow Cytometry ([id number]): No immunophenotypic evidence of a clonal cell population. ? End of Report [facility] 06/23/2016 06/24/2016 Matthew Acevedo DO PATHOLOGY ORDER JODIE [facility] [address] [place] [address] documented in this encounter Visit Diagnoses Not on filedocumented in this encounter Care Teams Dsp Engineer Relationship Specialty Start Date End Date Ashley Chavez ARNP [address] [place] [address] PCP - General 07/11/10 documented as of this encounter
--- OUTSIDE RECORDS SUMMARY | 2024-03-28 14:26 | XMS_ITS | Encounter Summary ---
Author Organization [facility] Address [address] [place] [address] Care Team Providers Care Dietitian Helper Name Role Phone Ashley Chavez Primary Care Provider [phone] Encounter Details Date Type Department Care Team (Late st Contact Info) Description 03/22/2024 Lab Requisition [facility] Pathology & Laboratory Medicine - [address] [address] Consuelo Guerrero, DO [address] [place], [place] [address] Diaphragmatic hernia without obstruction or gangrene; Anemia, [...] Priority Date/Time Associated Diagnosis Comments SURGICAL PATHOLOGY Today 03/21/2024 11 :35 EDT Diaphragmatic hernia without obstruction or gangrene Anemia, unspecified documented in this encounter Results * SURGICAL PATHOLOGY (03/21/2024 11:35 EDT) Note to Patient The following pathology results have been interpreted by your pathologist and may be available to you before your health provider has had the opportunity to review them. Please allow time for your provider to receive these results and explore management options, if applicable. 03/24/2024 10:36 [facility] Final Diagnosis A. JEJUNUM, PROXIMAL, [...] - Deeper sections x3 examined. 03/24/2024 10:36 [facility] Attestation There was significant resident/fellow involvement in the diagnostic evaluation of this case. By the signature below, the attending physician certifies that they have personally conducted a gross and/or microscopic examination of the described specimens and rendered or confirmed the above diagnosis. 03/24/2024 10:36 [facility] at [address] Clinical History Anemia, hiatal hernia, 38 cm aguayo diverticulosis 03/24/2024 10:36 [facility] Gross Description A. Received in [...] Luis Torres 03/22/2024 9:36 03/24/2024 10:36 EDT [facility] Resident/Estuardo w: Luis Felipe Bragg DO 03/24/2024 10:36 T [facility] Performing Lab [facility] 10:36 T [facility] Scanned Images 03/24/2024 10:36 T [facility] Tissue POLYP OF COLON [...] 8:19 EDT Consuelo Guerrero DO PATHOLOGY ORDERABLES [facility] [address] [place] [address] documented in this encounter Visit Diagnoses Diagnosis Diaphragmatic hernia without obstruction or gangrene Diaphragmatic hernia without mention of obstruction or gangrene Anemia, unspecified documented in this encounter Care Teams Dietitian Helper Relationship Specialty Start Date End Date Ashley Chavez ARNP [address] [place] [address] PCP - General 07/11/10 documented as of this encounter
--- OUTSIDE RECORDS SUMMARY | 2024-03-28 14:26 | XMS_ITS | Encounter Summary ---
Author Organization [facility] [place] [address] Care Team Providers Care Auto Polisher Name Role Phone Magdalena Acosta MD Primary Care Provider [phone] Reason for Referral * Diagnostic Test (Routine) - New Request Specialty Diagnoses / Procedures Referred By Contac t Referred To Contact Cardiology Diagnoses S/P TAVR (transcatheter aortic valve replacement) Procedures Echocardiogram Transthoracic Antelmo Sharma MD [facility] [place] [address] [facility] [place] [address] Referral ID Status Reason Start Date Expiration Date Visits Requested Visits Authorized [id number] New Request Specialty Service Requested 12/16/2023 12/15/2024 1 1 Encounter Details Date Type Department Care Team (Late st Contact Info) Description 12/16/2023 Orders Only Cardiology at [address] [address] Antelmo Sharma MD [facility] [place] [address] S/P TAVR (transcatheter aortic valve [...] 4:15 PM EDT Office Visit Dermatology at [place] [address] [facility] [place] [address] Marek Bonilla MD [address] [place] [address] Scheduled Orders Name Type Priority Associated Diagnoses [...] replacement) documented in this encounter Care Teams Auto Polisher Relationship Specialty Start Date End Date Magdalena Acosta MD [address] [place] [address] PCP - General Family Medicine 02/05/23 documented as of this encounter
--- OUTSIDE RECORDS SUMMARY | 2024-03-28 14:26 | XMS_ITS | Encounter Summary ---
Author Organization [facility] [place] [address] Care Team Providers Care Color Maker Dyer Name Role Phone Magdalena Acosta MD Primary Care Provider [phone] Encounter Details Date Type Department Care Team (Late st Contact Info) Description 12/02/2023 11:15 AM EDT Office [place] [address] Magdalena Peralta MD [facility] [place] [address] Mixed connective tissue disease Social History Tobacco [...] 1:5120 speckled; VIC negative; Myositis panel with TEST ANALYST ab 149.1 (positive); Anti U1RNP IgG [...] list of questions that she sent via [facility] ahead of her visit, which [...] exposure. She has an appointment with her Winder Hand scheduled in January. (Dr Bonilla in [place]) ROS (positives in bold): Gen: no fevers, [...] but I encouraged her to contact her Winder Hand to see if she could have her [...] Dr. Tanisha Peralta MD Rheumatology Fellow Pager: [phone] * Federico Yee MD - 12/02/2023 11:15 AM EDT Rheumatology Attending Attestation Note I have seen and examined the patient, reviewed the above history, exam, and assessment. I agree with the details as written. The assessment and plan was formulated with the fellow, Magdaelna Peralta MDin discussion with me and I [...] 4:15 PM EDT Office Visit Dermatology at [place] [address] [place] [address] Marek Bonilla MD [address] [facility] [place] [address] Scheduled Orders Name Type Priority Associated Diagnoses Orde r Schedule EKG 12 Lead ECG Routine Mixed connective tissue disease Expected: 12/02/2023, Expires: 06/03/2024 documented as of this encounter Visit Diagnoses Diagnosis Mixed connective tissue disease Other specified diffuse disease of connective tissue documented in this encounter Care Teams Color Maker Dyer Relationship Specialty Start Date End Date Magdalena Acosta MD [address] [place] [address] PCP - General Family Medicine 02/05/23 documented as of this encounter
--- OUTSIDE RECORDS SUMMARY | 2024-03-28 14:26 | XMS_ITS | Encounter Summary ---
Author Organization [facility] Address [address] [place] [address] Care Team Providers Care Home Depot Rep Name Role Phone Ashley Chavez Primary Care Provider [phone] Encounter Details Date Type Department Care Team (Late st Contact Info) Description 12/17/2021 Lab Requisition [facility] Pathology & Laboratory Medicine - [address] [id number] Outr Resulting Lab, Provider Social History Tobacco [...] Lyme Ab Negative Negative 12/18/2021 10:37 EDT [facility] Blood VENOUS BLOOD / Unknown 12/17/2021 13:30 EDT 12/17/2021 21:32 EDT Provider Outr Resulting Lab IMMUNOLOGY A ND SEROLOGY ORDERABLES Performing Organization Address [facility] Co de Phone Number [facility] [address] [place] [address] * (ABNORMAL) ANTI NUCLEAR AB (FRANCISCO), IFA (12/17/2021 13:30 EDT) FRANCISCO Interpretation Positive(A) Negative 12/18/2021 16:06 EDT [facility] Comment: For titers greater [...] Pattern 1 1:1280 Speckled 12/18/2021 16:06 EDT [facility] Blood VENOUS BLOOD / Unknown 12/17/2021 13:30 EDT 12/17/2021 21:32 EDT Narrative [facility] - 12/18/2021 16:06 EDT Results were obtained with the INOVA NOVA Lite HEp-2 FRANCISCO Kit by indirect immunofluorescence. Provider Outr Resulting Lab IMMUNOLOGY A ND SEROLOGY ORDERABLES Performing Organization Address [facility] Co de Phone Number [facility] [address] [place] [address] documented in this encounter Visit Diagnoses Not on filedocumented in this encounter Care Teams Home Depot Rep Relationship Specialty Start Date End Date Ashley Chavez ARNP [address] [place] [address] PCP - General 07/11/10 documented as of this encounter
--- OUTSIDE RECORDS SUMMARY | 2024-03-28 14:26 | XMS_ITS | Encounter Summary ---
[place] [address] Care Team Providers Care Pipe Foreman Name Role Phone Magdalena Acosta MD Primary Care Provider [phone] Encounter Details Date Type Department Care Team [...] EDT Office Visit Dermatology at [place] [address] [place] [address] Marek Bonilla MD [address], TOD[address] A DERMATOLOGY [place], [place] [address] documented as of this encounter Visit Diagnoses Not on filedocumented in this encounter Care Teams Pipe Foreman Relationship Specialty Start Date End Date Magdalena Acosta MD [address] [place] [address] PCP - General Family Medicine 02/05/23 documented as of this encounter
--- OUTSIDE RECORDS SUMMARY | 2024-03-28 14:26 | XMS_ITS | Encounter Summary ---
Author Organization [facility] Address [address] [place] [address] Care Team Providers Care Stock Selector Name Role Phone Scott Ashley WILLIAM Primary Care Provider [phone] Encounter Details Date Type Department Care Team (Late st Contact Info) Description 11/10/2013 Results Only [facility] [phone] Jeni Laird, SHELL FISHERMAN [address] [place], [place] [phone] Social History Tobacco Use Types Packs/Day Years [...] ? 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 Accession #: ? [id number] : ? 1955 (Age: 58) ??F ?Collect Date: ? 11/10/2013 Location: ? [facility] ? Receive Date: ? 11/14/2013 Provider: ?JENI LAIRD SHELL FISHERMAN Copy to: ? Specimen/Source: ?Pap Test, Endocervix, [...] Report [facility] 11/10/2013 11/14/2013 Jeni Laird SHELL FISHERMAN PATHOLOGY ORDERAB LES Performing Organization Address City/State/[facility] Co de Phone Number PAUL ARELLANO [address] [place] [address] documented in this encounter Visit Diagnoses Not on filedocumented in this encounter Care Teams Stock Selector Relationship Specialty Start Date End Date Ashley Chavez ARNP [address] [place] [address] PCP - General 07/11/10 documented as of this encounter
--- OUTSIDE RECORDS SUMMARY | 2024-03-28 14:26 | XMS_ITS | Encounter Summary ---
[place] [address] Care Team Providers Care Marketing Pr Intern Name Role Phone Magdalena Acosta MD Primary Care Provider [phone] Encounter Details Date Type Department Care Team [...] 4:15 PM EDT Office Visit Dermatology at [place] [address] [facility] [place] [address] Marek Bonilla MD [address], TODD A DERMATOLOGY [place], [place] [address] documented as of this encounter Visit Diagnoses Not on filedocumented in this encounter Care Teams Marketing Pr Intern Relationship Specialty Start Date End Date Magdalena Acosta MD [address] [place] [address] PCP - General Family Medicine 02/05/23 documented as of this encounter
--- OUTSIDE RECORDS SUMMARY | 2024-03-28 14:26 | XMS_ITS | Encounter Summary ---
Author Organization [facility] Address [address] [place] [address] Care Team Providers Care Model Dresser Name Role Phone Unavailable Primary Care Provider Unavailabl e Encounter Details Date Type Department Care Team (Late st Contact Info) Description 03/24/2007 11:06 EDT - 03/24/2007 11:[address] [facility] - Other [address] [place] [address] Ashley Chavez ARNP [address] [place] [address] Discharge Disposition: Home or Self Care Social [...]
--- OUTSIDE RECORDS SUMMARY | 2024-03-28 14:26 | XMS_ITS | Encounter Summary ---
[place] [address] Care Team Providers Care Mortician Helper Name Role Phone Magdalena Acosta MD Primary Care Provider [phone] Encounter Details Date Type Department Care Team (Latest Contact Info) Description 10/05/2023 10:52 AM EST - 10/05/2023 11:59 PM [facility] Hospital Encounter [place] [address] Mixed connective tissue disease Discharge Disposition: Home Social History Tobacco Use Types Packs/Day Years Used Date Smoking Tobacco: Never Smokeless Tobacco: Never Alcohol Use Standard Drinks/Week Comments No 0 (1 standard drink = 0.6 oz pur e alcohol) none [facility] Inpatient Questions Answer Date Recorded [...] 4:15 PM EDT Office Visit Dermatology at [place] [address] [place] [address] Marek Bonilla MD [address], [address] [place] [address] documented as of this encounter Procedures Procedure [...] PFT FEV1/FVC Pre-BD Z-Score 0 COMPAS PFT MAT97-20 Actual Pre-BD 2.41 % COMPAS PFT TOF19-83 Predicted 1.8 % COMPAS PFT RAB13-43 Pre-BD % of Predicted 134 % COMPAS PFT GNA43-65 Pre-BD Z-Score 0.81 COMPAS PFT DLCO Hb [...] tissue documented in this encounter Care Teams Mortician Helper Relationship Specialty Start Date End Date Magdalena Acosta MD [address] [place] [address] PCP - General Family Medicine 02/05/23 documented as of this encounter
--- OUTSIDE RECORDS SUMMARY | 2024-03-28 14:26 | XMS_ITS | Encounter Summary ---
[place] [address] Care Team Providers Care Booster Operator Name Role Phone Magdalena Acosta MD Primary Care Provider [phone] Reason for Visit * Reason Onset Date Comments Pre Procedure Call 03/01/2024 DAPT hold for EGD and colo? Encounter Details Date Type Department Care Team (Late st Contact Info) Description 03/01/2024 Telephone Cardiology at [address] [phone] Cynthia Monsalve RN Pre Procedure Call (DAPT [...] safe. Jay Message above left with Yenifer (space scheduler), who would be leaving this note in patient's chart for providers to schedule patient. No further questions or needs at this time. This nurse stated, note will be placed regarding this call in our chart for patient. Kezia Whitney RN, BSN Ambulatory Cardiology Clinic, [facility] [phone] * Telephone Encounter - Cynthia Monsalve RN - 03/01/2024 2:09 PM EDT Nurse Veronica from [facility] called, requesting a hold on ASA and/or Plavix for the patient's anticipated EGD and colonoscopy. -Cynthia Monsalve RN documented in this encounter Plan of Treatment Upcoming Encounters Date Type Department Care Team (Late st Contact Info) Description 03/01/2025 4:15 PM EDT Office Visit Dermatology at [place] [address] [place] [address] Marek Bonilla MD [address], [place] [address] documented as of this encounter Visit Diagnoses Not on filedocumented in this encounter Care Teams Booster Operator Relationship Specialty Start Date End Date Magdalena Acosta MD [address] [place] [address] PCP - General Family Medicine 02/05/23 documented as of this encounter
--- OUTSIDE RECORDS SUMMARY | 2024-03-28 14:26 | XMS_ITS | Encounter Summary ---
Author Organization [facility] Address [address] [place] [address] Care Team Providers Care Technical Rep Name Role Phone Scott, Ashley WILLIAM Primary Care Provider [phone] Encounter Details Date Type Department Care Team (Late st Contact Info) Description 03/21/2024 Lab Requisition [facility] Pathology & Laboratory Medicine - [address] [address] Consuelo Guerrero, DO [address] [place], [place] [address] Encounter for other general examination Social History [...] 13:00 EDT) LORY Negative 03/21/2024 22:31 EDT [facility] Blood VENOUS BLOOD / Unknown 03/21/2024 13:00 EDT 03/21/2024 21:51 EDT Consuelo Guerrero DO BLOOD BANK TESTS [facility] [address] [place] [address] documented in this encounter Visit Diagnoses Diagnosis Encounter for other general examination documented in this encounter Care Teams Technical Rep Relationship Specialty Start Date End Date Ashley Chavez ARNP [address] [place] [address] PCP - General 07/11/10 documented as of this encounter
--- OUTSIDE RECORDS SUMMARY | 2024-03-28 14:26 | XMS_ITS | Encounter Summary ---
Author Organization [facility] [place] [address] Care Team Providers Care Cofferdam Construction Supervisor Name Role Phone Magdalena Acosta MD Primary Care Provider [phone] Reason for Visit * Reason Comments Aortic Stenosis Coronary Artery Disease Hypertension Encounter Details Date Type Department Care Team (Latest Contact Info) Description 11/16/2023 11:40 AM EDT TH Visit (TeleHealth) Cardiology at [address] [address] Jay Maza PA [facility] [address] Aortic valve stenosis, etiology of cardiac valve disease unspecified; Coronary artery disease, unspecified vessel or lesion type, unspecified whether angina present, unspecified whether [place] or transplanted heart Social History Tobacco Use [...] from the original note were not included. [facility] Interventional Cardiology CARDIOLOGY TELE VISIT NOTE 11/16/23 Patient: Purnima Thacker Prior to the initiation of our discussion, the risks and benefits of tele health visits were discussed, and the patient consented verbally to this being a virtual telehealth visit in lieu of an in person office visit. CARDIOLOGISTS: Antelmo Sharma MD ([facility] Cards) Maria Luz Mejia MD ([facility] Cards - [facility]) Problem List: Aortic valve stenosis: [...] notable for coronary artery protection given low xjoml-lh-eozrhkzp distance. There was no obstruction post Valve [...] had a very reassuring recent echo in [facility], in scanned docs. LVEF 55%. [...] leads Confirmed by MD Harshil, Haris Bell ([id number]) on 05/10/2023 8:11:46 AM Cardiac Cath 11/09/2022 [...] in one year. EKATERINA Thompson Time spent: [id number] 0-5min 4689FUI4 6-10min 0119WAI5 11-15min x [id number] 16-20min [id number] 21-30min 9023UJQ2 31-40min 4748LKK0 40+ min Jay Maza PA-C Interventional Cardiology [facility] Pager [phone] documented in this encounter Plan of Treatment Upcoming Encounters Date Type Department Care Team (Late st Contact Info) Description 03/01/2025 4:15 PM EDT Office Visit Dermatology at [address] [place] [address] Marek Bonilla MD [address] [facility], [place] [address] documented as of this encounter Visit Diagnoses Diagnosis Aortic valve stenosis, etiology of cardiac valve disease unspecified Coronary artery disease, unspecified vessel or lesion type, unspecified whether angina present, unspecified whether [place] or transplanted heart documented in this encounter Care Teams Cofferdam Construction Supervisor Relationship Specialty Start Date End Date Magdalena Acosta MD [address] [place] [address] PCP - General Family Medicine 02/05/23 documented as of this encounter
--- OUTSIDE RECORDS SUMMARY | 2024-03-28 14:26 | XMS_ITS | Encounter Summary ---
Author Organization [facility] Address [address] [place] [address] Care Team Providers Care Icu Staff Nurse Name Role Phone Unavailable Primary Care Provider Unavailabl e Encounter Details Date Type Department Care Team (Late st Contact Info) Description 06/29/2007 Results Only [facility] [address] [place] [address] Sánchez Acevedo MD [address] [place] [address] Social History Tobacco Use Types Packs/Day Years [...] ? 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 Accession #: ? [id number] ? : ? 1955 (Age: 51) ??F [...] covered by a smooth white serosa. ??Three advertising representative sections of the gallbladder are submitted in one cassette. ??([facility] End of Report [facility] 06/29/2007 06/29/2007 21: 23 EST Sánchez Acevedo MD PATHOLOGY ORDERABLE [facility] [address] [place] [address] documented in this encounter Visit Diagnoses Not on filedocumented in this encounter
--- OUTSIDE RECORDS SUMMARY | 2024-03-28 14:26 | XMS_ITS | Encounter Summary ---
Author Organization [facility] Address [address] [place] [address] Care Team Providers Care Manager Investment Name Role Phone Unavailable Primary Care Provider Unavailabl e Encounter Details Date Type Department Care Team (Late st Contact Info) Description 03/24/2007 Results Only [facility] Non-Invasive Cardiology - [facility] [address] [place], [place] [address] Ashley Chavez ARNP [address] [place] [address] Social History Tobacco Use Types Packs/Day Years [...] ? 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 Accession #: ? [id number] : ? 1955 (Age: 51) ??F ?Collect Date: ? 03/24/2007 Location: ? [facility] ? Receive Date: ? 03/28/2007 Provider: ?ASHLEY THOMAS Copy to: ? Specimen/Source: ?ThinPrep Pap Test, Endocervix, processed on [employer] ThinPrep Imaging System, with manual evaluation Last [...] Ashley THOMAS PATHOLOGY ORDERABLES [facility] [address] [place] [address] documented in this encounter Visit Diagnoses Not on filedocumented in this encounter
--- OUTSIDE RECORDS SUMMARY | 2024-03-28 14:26 | XMS_ITS | Encounter Summary ---
[place] [address] Care Team Providers Care Second Crusher Name Role Phone Magdalena Acosta MD Primary Care Provider [phone] Reason for Visit * Reason Comments Annual Exam Encounter Details Date Type Department Care Team (Late st Contact Info) Description 02/22/2024 4:15 PM EDT Office Visit Dermatology at [address] [phone] Marek Bonilla MD [address] [facility] A DERMATOLOGY [place], [place] [phone] Seborrheic keratosis; Rosacea; Nevus Social History Tobacco [...] cutaneous and ocular 3. Previously told by client technical professional that she had corneal tears from her [...] 4:15 PM EDT Office Visit Dermatology at [place] [address] [place] [address] Marek Bonilla MD [address] [facility], [place] [address] documented as of this encounter Visit Diagnoses Diagnosis Seborrheic keratosis Other seborrheic keratosis Rosacea Nevus Benign neoplasm of skin, site unspecified documented in this encounter Care Teams Second Crusher Relationship Specialty Start Date End Date Magdalena Acosta MD [address] [place] [address] PCP - General Family Medicine 02/05/23 documented as of this encounter
--- OUTSIDE RECORDS SUMMARY | 2024-03-28 14:26 | XMS_ITS | Encounter Summary ---
Author Organization [facility] Address [address] [place] [address] Care Team Providers Care Associate Civil Engineer Name Role Phone Ashley Chavez Primary Care Provider [phone] Encounter Details Date Type Department Care Team (Latest Contact Info) Description 05/12/2019 13:18 EDT - 05/12/2019 23:59 EDT Hospital Encounter [address] [address] Unknown, Provider, Discharge Disposition: Home or Self Care Social History Tobacco Use Types Packs/Day Years Used Date Smoking Tobacco: Never Assessed Sex and Gender Information Value Date Recorded Sex Assigned at Not on file Gender Identity Not on file Sexual Orientation Not on file documented as of this encounter Discharge Disposition Disposition Code Departure Means Destination Home or Self Residential documented in this encounter Plan of Treatment Not on file documented as of this encounter Visit Diagnoses Not on filedocumented in this encounter Care Teams Associate Civil Engineer Relationship Specialty Start Date End Date Ashley Chavez ARNP [address] [place] [address] PCP - General 07/11/10 documented as of this encounter
--- OUTSIDE RECORDS SUMMARY | 2024-03-28 14:26 | XMS_ITS | Encounter Summary ---
Author Organization [facility] Address [address] [place] [address] Care Team Providers Care Property Caretaker Name Role Phone Scott Ashley WILLIAM Primary Care Provider [phone] Encounter Details Date Type Department Care Team (Late st Contact Info) Description 05/12/2019 Results Only [facility] [phone] Nadira Gregorio MD [address] [place] [phone] Social History Tobacco Use Types Packs/Day [...] ? 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 Accession #: ? [id number] ? : ? 1955 (Age: 63) ??F ? Collect Date: ? 05/12/2019 ? Location: ? [facility] ? Receive Date: ? 05/12/2019 ? Provider: NADIRA GREGORIO MD Copy to: WINTER HANKINS CIGAR BANDER HAND ? Final Pathologic Diagnosis: COLON, CECUM, POLYP, [...] (ASCP) 05/12/2019 6:08 PM End of Report [facility] 05/12/2019 16:0 3 EDT 05/12/2019 16:03 EDT Nadira Gregorio MD PATHOLOGY ORDERABLES [facility] [address] [place] [address] documented in this encounter Visit Diagnoses Not on filedocumented in this encounter Care Teams Property Caretaker Relationship Specialty Start Date End Date Ashley Chavez ARNP [address] [place] [address] PCP - General 07/11/10 documented as of this encounter
--- OUTSIDE RECORDS SUMMARY | 2024-03-28 14:26 | XMS_ITS | Encounter Summary ---
[place] [address] Care Team Providers Care Air Valve Mechanic Name Role Phone Magdalena Acosta MD Primary Care Provider [phone] Encounter Details Date Type Department Care Team [...] 4:15 PM EDT Office Visit Dermatology at [place] [address] [facility] [place] [address] Marek Bonilla MD [address], TODD A DERMATOLOGY [place], [place] [address] documented as of this encounter Visit Diagnoses Not on filedocumented in this encounter Care Teams Air Valve Mechanic Relationship Specialty Start Date End Date Magdalena Acosta MD [address] [place] [address] PCP - General Family Medicine 02/05/23 documented as of this encounter
--- OUTSIDE RECORDS SUMMARY | 2024-03-28 14:27 | XMS_ITS | Encounter Summary ---
[place] [address] Care Team Providers Care Display Designer Outside Name Role Phone Magdalena Acosta MD Primary Care Provider [phone] Encounter Details Date Type Department Care Team [...] 4:15 PM EDT Office Visit Dermatology at [place] [address] [place] [address] Marek Bonilla MD [address], TODD A DERMATOLOGY [place], [place] [address] documented as of this encounter Visit Diagnoses Not on filedocumented in this encounter Care Teams Display Designer Outside Relationship Specialty Start Date End Date Magdalena Acosta MD [address] [place] [address] PCP - General Family Medicine 02/05/23 documented as of this encounter
--- OUTSIDE RECORDS SUMMARY | 2024-03-28 14:27 | XMS_ITS | Encounter Summary ---
Author Organization [facility] [place] [address] Care Team Providers Care Senior Product Designer Name Role Phone Magdalena Acosta MD Primary Care Provider [phone] Encounter Details Date Type Department Care Team (Late st Contact Info) Description 07/08/2023 10:15 AM EST Office Visit Cardiology at [address] [phone] Severe aortic stenosis Social History Tobacco Use [...] 4:15 PM EDT Office Visit Dermatology at [place] [address] [place] [address] Marek Bonilla MD [address], [place] [address] documented as of this encounter Procedures Procedure [...] (Bezet) 449 ms MUSE SYSTEM Calculated P Adrian 66 degrees MUSE SYSTEM Calculated R Adrian 60 degrees MUSE SYSTEM Calculated T Adrian 53 degrees MUSE SYSTEM INTERPRETATION Normal sinus rhythm Minimal voltage criteria for LVH, may be normal variant ( Sokolow-Orozco ) ST & T wave abnormality, consider lateral ischemia ??vs. repolarization abnormality from LVH Abnormal ECG When compared with ECG of 13-MAY-2023 09:22, Premature ventricular complexes are no longer Present Minimal criteria for Septal infarct are no longer Present Confirmed by Maxx Best ([id number]) on 07/09/2023 10:07:22 AM MUSE SYSTEM 07/08/2023 10:2 7 AM EST 07/09/2023 10:07 AM EST Brody Kaplan APRN ECG ORDERABLES MUSE SYSTEM documented in this encounter Visit Diagnoses Diagnosis Severe aortic stenosis Aortic valve disorders documented in this encounter Care Teams Senior Product Designer Relationship Specialty Start Date End Date Magdalena Acosta MD [address] [place] [address] PCP - General Family Medicine 02/05/23 documented as of this encounter
--- OUTSIDE RECORDS SUMMARY | 2024-03-28 14:27 | XMS_ITS | Encounter Summary ---
[place] [address] Care Team Providers Care Manager Pulmonary Name Role Phone Magdalena Acosta MD Primary Care Provider [phone] Encounter Details Date Type Department Care Team (Latest Contact Info) Description 07/08/2023 12:35 PM EST Laboratory Appointment Lab [address] [place] [address] S/P TAVR (transcatheter aortic valve [...] 4:15 PM EDT Office Visit Dermatology at [place] [address] [facility] [place] [phone] Marek Bonilla MD [address], [place] [address] (work) documented as of this encounter Procedures [...] 11:56 AM EST) Neutrophil % 73.2 % [facility] Neutrophil Absolute 3.40 1.70 - 6.10 x10(3)/mc L [facility] Lymph % 16.1 % [facility] Lymphocytes Abs 0.8(L) 0.9 - 3.2 x10(3)/mc L [facility] Monocyte % 9.7 % [facility] Monocyte Abs 0.4 0.3 - 0.9 x10(3)/mc L [facility] Eos % 0.4 % [facility] Eosinophils Abs 0.0 0.0 - 0.4 x10(3)/mc L [facility] Basophil % 0.4 % [facility] Baso Absolute 0.0 0.0 - 0.1 x10(3)/mc L [facility] Immature Gran % 0.20 % [facility] Comment: Immature granulocytes(IG's)percentage and absolute count will include metamyelocytes, myelocytes, and promyelocytes. Blood smears from CBCs yielding IG's will be scanned manually for concordance. If this scan disagrees with the automated IG or if promyelocytes are noted, a manual differential will be performed. Immature Gran Absolute 0.01 0.00 - 0.04 x10(3)/mc L [facility] Blood 07/08/2023 11:5 6 AM EST 07/08/2023 12:02 PM EST Narrative Resulting Agency Comment Spec In Lab Minh TOBAR HEMATOLOGY ORDERABLE S [facility] [address] * (ABNORMAL) Hemogram (07/08/2023 11:56 AM EST) White Blood Cell 4.6 4.0 - 9.5 x10(3)/mc L [facility] Red Blood Cell 3.34(L) 4.00 - 5.21 x10(6)/mc L [facility] Hemoglobin 11.0(L) 11.7 - 15.5 g/dL [facility] Hematocrit 33.2(L) 35.7 - 45.8 % [facility] Mean Cell Volume 99.4(H) 82.6 - 94.4 fL [facility] Mean Cell Hemoglobin 32.9(H) 27.1 - 32.0 pg [facility] Mean Cell Hemoglobin Concentration 33.1 31.7 - 35.0 g/dL [facility] Platelet 166 145 - 357 x10(3)/mc L [facility] RDW Standard Deviation 47.1(H) 37.0 - 46.0 fL [facility] RDW coefficient of variation 13.0 11.5 - 14.1 % [facility] Mean Platelet Volume 9.0 7.6 - 12.9 fL [facility] NRBC% auto 0.0 % [facility] NRBC Absolute 0.000 0.000 - 0.000 x10(3)/mc L [facility] Blood 07/08/2023 11:5 6 AM EST 07/08/2023 12:02 PM EST Narrative Resulting Agency Comment Spec In Lab Minh TOBAR HEMATOLOGY ORDERABLE S [facility] [address] * (ABNORMAL) Comprehensive metabolic panel (non-fasting) (07/08/2023 11:56 AM EST) Glucose 93 65 - 199 mg/dL [facility] Comment:Diabetes: >=200 mg/d L plus symptoms Blood Urea Nitrogen 19(H) 8 - 18 mg/dL [facility] Creatinine 0.81 0.70 - 1.20 mg/dL [facility] Sodium 142 135 - 145 mmol/L [facility] Potassium 3.8 3.5 - 5.0 mmol/L [facility] Comment: Please note: ??Patients with WBC >100,000 may have falsely elevated Potassium levels. ??For accurate Potassium quantification in these patients send serum separator tube (gold top) for subsequent determinations. ??Contact the Clinical Chemistry Laboratory if there are any questions. Chloride 104 98 - 107 mmol/L [facility] Carbon Dioxide 26 22 - 31 mmol/L [facility] Anion Gap 12 5 - 15 mmol/L [facility] Calcium 10.2 8.5 - 10.5 mg/dL [facility] Protein, Total 7.4 6.1 - 8.0 g/dL [facility] Albumin 4.1 3.2 - 5.2 g/dL [facility] Aspartate Aminotransferase 24 0 - 30 unit/L [facility] Alanine Aminotransferase 12 0 - 30 unit/L [facility] Alkaline Phosphatase 93 35 - 105 unit/L [facility] Bilirubin, Total 0.3 0.2 - 1.3 mg/dL [facility] Est Glomerular Filtration Rate 80 >=60 mL/min/1. 73 m?? [facility] Comment: This patient's estimated GFR was [...] Lab Alirio Esparza MD CHEMISTRY ORDERABLE S [facility] [address] documented in this encounter Visit Diagnoses Diagnosis S/P TAVR (transcatheter aortic valve replacement) Severe aortic stenosis Aortic valve disorders documented in this encounter Care Teams Manager Pulmonary Relationship Specialty Start Date End Date Magdalena Acosta MD [address] [place] [address] PCP - General Family Medicine 02/05/23 documented as of this encounter
--- OUTSIDE RECORDS SUMMARY | 2024-03-28 14:27 | XMS_ITS | Encounter Summary ---
Author Organization [facility] [place] [address] Care Team Providers Care Automotive Mechanic Name Role Phone Magdalena Acosta MD Primary Care Provider [phone] Encounter Details Date Type Department Care Team (Late st Contact Info) Description 05/27/2023 Refill Cardiology at [address] [phone] Vero Marrero, RN Social History Tobacco Use Types Packs/Day Years Used Date Smoking Tobacco: Never Smokeless Tobacco: Never Alcohol Use Standard Drinks/Week Comments No 0 (1 standard drink = 0.6 oz pur e alcohol) none [facility] Inpatient Questions Answer Date Recorded Does [...] PM EDT TC to Nurse Sosa at [facility] to relay response from Jay Maza copied below. Nurse Sosa states they will send a new prescription to patient's preferred pharmacy and call the patient with the medication information. No print prescription sent to update med list. May 27, 2023 Jay Maza PA to Ok 05/27/23 2:44 PM OK to change ticagrelor to Clopidogrel. Now, she should be taking ticagrelor 90mg BID. When she switches, she can take ticagrelor, then the next morning, stop ticagrelor, instead take clopidogrel 300mg once, then after that 75mg once daily. Jay Marrero [facility] [phone] * Telephone Encounter - Vero Marrero RN - 05/27/2023 1:46 PM EDT VM received from triage nurse Sosa at [facility] stating patient was seen today by [...] possible. Vero Marrero RN Cardiology [facility] at [facility] [address] documented in this encounter Plan of Treatment Upcoming Encounters Date Type Department Care Team (Late st Contact Info) Description 03/01/2025 4:15 PM EDT Office Visit Dermatology at [place] [address] [place] [phone] Marek Bonilla MD [address], [place] [address] documented as of this encounter Visit Diagnoses Diagnosis Aortic valve stenosis, etiology of cardiac valve disease unspecified documented in this encounter Care Teams Automotive Mechanic Relationship Specialty Start Date End Date Magdalena Acosta MD [address] [place] [address] PCP - General Family Medicine 02/05/23 documented as of this encounter
--- OUTSIDE RECORDS SUMMARY | 2024-03-28 14:27 | XMS_ITS | Encounter Summary ---
[place] [address] Care Team Providers Care Personal Care Assistant Name Role Phone Magdalena Acosta MD Primary Care Provider [phone] Encounter Details Date Type Department Care Team [...] 4:15 PM EDT Office Visit Dermatology at [place] [address] [facility] [place] [address] Marek Bonilla MD [address], TODD A DERMATOLOGY [place], [place] [phone] documented as of this encounter Visit Diagnoses Not on filedocumented in this encounter Care Teams Personal Care Assistant Relationship Specialty Start Date End Date Magdalena Acosta MD [address] [place] [address] PCP - General Family Medicine 02/05/23 documented as of this encounter
--- OUTSIDE RECORDS SUMMARY | 2024-03-28 14:27 | XMS_ITS | Encounter Summary ---
Author Organization [facility] [place] [address] Care Team Providers Care Currency Counter Name Role Phone Magdalena Acosta MD Primary Care Provider [phone] Reason for Visit * Reason Comments Coronary Artery Disease Hypertension Aortic Stenosis Encounter Details Date Type Department Care Team (Latest Contact Info) Description 07/20/2023 4:40 PM EST TH Visit (TeleHealth) Cardiology at [address] [address] Jay Maza PA [facility] [place] [address] HFrEF (heart failure with reduced ejection fraction); [...] Maza PA - 07/20/2023 4:[address] [facility] Interventional Cardiology CARDIOLOGY [...] lieu of an in person office visit. Porcelain Turner: Antelmo Sharma MD ([facility] Cards) Maria Luz Mejia MD ([facility] cards) Problem List: : prior [...] notable for coronary artery protection given low leidb-mj-tanemqja distance. There was no obstruction post Valve deployment, but the stent could not be removed safely, so it was deployed. 4.0 mm x 30mm in left main. She was loaded on brilinta aka ticagrelor. Immediately post valve deployment, chest compressions to circulate central epinephrine which was administered given her hypotension, low LVEF, and low cardiac reserve. Next, the patient was transferred to [facility] for pressor and inotropic support. Pressors weaned overnight. Cardiac indices by thermodilution remained greater than 3 with continued Milrinone 0.125 mcg/kg/min. EKG the next day with NSR with stable GA/QRS intervals. Hemoglobin 7.8 today from 8.5, likely [...] arms and wrists. Successful right transfemoral TAVR Szaic-jb-Wnznn with a 23 mm Lai 3 THV. [...] leads Confirmed by MD Harshil, Haris Bell ([id number]) on 05/10/2023 8:11:46 AM Cardiac Cath 11/09/2022 [...] in chart review and direct patient contact. [id number] 0-5min 9615OOX8 6-10min 4259IHV2 11-15min 5639DDN6 16-20min x 1946MSE6 21-30min 6015VQI1 31-40min 8377TPQ1 40+ min Jay Maza PA-C Interventional Cardiology [facility] Pager [phone] documented in this encounter Plan of Treatment Upcoming Encounters Date Type Department Care Team (Late st Contact Info) Description 03/01/2025 4:15 PM EDT Office Visit Dermatology at [place] [address] [place] [address] Marek Bonilla MD [address], [place] [address] documented as of this encounter Visit Diagnoses Diagnosis HFrEF (heart failure with reduced ejection fraction) Hypertension, unspecified type Aortic valve stenosis, etiology of cardiac valve disease unspecified documented in this encounter Care Teams Currency Counter Relationship Specialty Start Date End Date Magdalena Acosta MD [address] [place] [address] PCP - General Family Medicine 02/05/23 documented as of this encounter
--- OUTSIDE RECORDS SUMMARY | 2024-03-28 14:27 | XMS_ITS | Encounter Summary ---
Author Organization [facility] Address [facility] [place] [address] Care Team Providers Care Ditch Digger Name Role Phone Magdalena Acosta MD Primary Care Provider [phone] Encounter Details Date Type Department Care Team (Late st Contact Info) Description 07/29/2023 11:00 AM EST [place] [address] Magdalena Peralta MD [facility] [place] [address] Mixed connective tissue disease Social History Tobacco [...] 1:5120 speckled; VIC negative; Myositis panel with POWER SUPPLY ENGINEER ab 149.1 (positive); Anti U1RNP IgG [...] Viramontes. Magdalena Peralta MD Rheumatology Fellow Pager: [phone] * Kia Viramontes DO - 07/29/2023 11:00 AM EST ATTENDING ADDENDUM The patient's history was reviewed, and I interviewed and examined the patient with Dr. Peralta I agree with her summary, findings, and plan. documented in this encounter Plan of Treatment Upcoming Encounters Date Type Department Care Team (Late st Contact Info) Description 03/01/2025 4:15 PM EDT Office Visit Dermatology at [place] [address] [facility] [place] [address] Marek Bonilla MD [address] [facility], [place] [address] documented as of this encounter Results * [...] PFT FEV1/FVC Pre-BD Z-Score 0 COMPAS PFT CSB55-99 Actual Pre-BD 2.41 % COMPAS PFT PDG65-69 Predicted 1.8 % COMPAS PFT AKO11-59 Pre-BD % of Predicted 134 % COMPAS PFT UJS94-93 Pre-BD Z-Score 0.81 COMPAS PFT DLCO Hb [...] tissue documented in this encounter Care Teams Ditch Digger Relationship Specialty Start Date End Date Magdalena Acosta MD [address] [place] [address] PCP - General Family Medicine 02/05/23 documented as of this encounter
--- OUTSIDE RECORDS SUMMARY | 2024-03-28 14:27 | XMS_ITS | Encounter Summary ---
Author Organization [facility] [place] [address] Care Team Providers Care Health Sciences Dean Name Role Phone Magdalena Acosta MD Primary Care Provider [phone] Reason for Referral * Diagnostic Test (Routine) - Closed Specialty Diagnoses / Procedures Referred By Contac t Referred To Contact Cardiology Diagnoses S/P TAVR (transcatheter aortic valve replacement) Procedures Echocardiogram Transthoracic Vinod Juárez PA [facility] [place] [address] [facility] [place] [address] Referral ID Status Reason Start Date Expiration Date V isits Requested Visits Authorized [id number] Closed Specialty Service Requested 05/22/2023 05/21/2024 1 1 Reason for Visit * Diagnostic Test (Routine) - Closed Specialty Diagnoses / Procedures Referred By Contac t Referred To Contact Cardiology Diagnoses S/P TAVR (transcatheter aortic valve replacement) Procedures Echocardiogram Transthoracic Vinod Juárez PA [facility] [place] [address] [facility] [place] [address] Referral ID Status Reason Start Date Expiration Date V isits Requested Visits Authorized [id number] Closed Specialty Service Requested 05/22/2023 05/21/2024 1 1 Encounter Details Date Type Department Care Team (Latest Contact Info) Description 07/08/2023 10:19 AM EST - 07/08/2023 11:59 PM EST Hospital Encounter [place] [address] Alirio Esparza MD S/P TAVR (transcatheter aortic [...] Verio test strips Strip USE DAILY 01/03/2022 TopixTouch Delica Plus Lancet 33 gauge Misc USE [...] 4:15 PM EDT Office Visit Dermatology at [place] [address] [facility] [place] [phone] Marek Bonilla MD [address] [place] [address] documented as of this encounter Procedures Procedure [...] EST Narrative 07/08/2023 12:26 PM EST 1 [place] [address] ? Echocardiogram Report Name: ONESIMO THACKER ?Study Date: 07/08/2023 10:31 AMBP: 118/60 mmHg ? Patient Location: : 1955 ? Height: 155 cm ? Account: [id number] Age: 67 yrs ? Weight: 74 kg Gender: Female ?BSA: 1.7 m2 Ordering Physician: ALIRIO ESPARZA Referring Physician: VINOD JUÁREZ Performed By: Felicia Norris RDCS Reason For Study: S/P TAVR Exam Location: [facility]. Interpretation Summary Left ventricular systolic function [...] no significant change (post-procedure). Procedure Limited - 97883. Doppler - 80761. Color Doppler - 71172. Satisfactory quality. This study is limited because [...] Note Lee Kincaid MD - 07/08/2023 1 [place] [address] Echocardiogram Report Name: ANDREWONESIMO Study Date: 0:31 AMBP: 118/60 mmHg Patient Location: : 1955 Height: 155 cm Account: [id number] Age: 67 yrs Weight: 74 kg Gender: Female BSA: 1.7 m2 Ordering Physician: ALIRIO ESPARZA Referring Physician: VINOD JUÁREZ Performed By: Felicia Norris RDCS Reason For Study: S/P TAVR Exam Location: [facility]. Interpretation Summary Left ventricular systolic function [...] is nosignificant change (post-procedure). Procedure Limited - 77424. Doppler - 64781. Color Doppler - 15993. Satisfactoryquality. This study is limited because of [...] replacement) documented in this encounter Care Teams Health Sciences Dean Relationship Specialty Start Date End Date Magdalena Acosta MD [address] [place] [address] PCP - General Family Medicine 02/05/23 documented as of this encounter
--- OUTSIDE RECORDS SUMMARY | 2024-03-28 14:28 | XMS_ITS | Encounter Summary ---
Author Organization [facility] Address [facility] [place] [address] Care Team Providers Care Machine Maintenance Technician Name Role Phone Magdalena Acosta MD Primary Care Provider [phone] Reason for Referral * Diagnostic Test (Routine) - Closed Specialty Diagnoses / Procedures Referred By Contac t Referred To Contact Cardiology Diagnoses S/P TAVR (transcatheter aortic valve replacement) Procedures Echocardiogram Transthoracic Vinod Juárez PA [facility] [place] [address] [facility] [place] [address] Referral ID Status Reason Start Date Expiration Date V isits Requested Visits Authorized [id number] Closed Specialty Service Requested 05/22/2023 05/21/2024 1 1 * Home Health Care (Routine) - Closed Specialty Diagnoses / Procedures Referred By Contac t Referred To Contact Diagnoses S/P TAVR (transcatheter aortic valve replacement) Alirio Hudson MD [facility] CARDIOTHORACIC SURGERY [address] [facility] & [address] [place] [address] Referral ID Status Reason Start Date Expiration Date V isits Requested Visits Authorized [id number] Closed Consult, Test & Treat 05/22/2023 11/18/2023 999 999 * Consultation (Routine) - Closed Specialty Diagnoses / Procedures Referred By Crispin maxwell Referred To Contact Cardiology Diagnoses S/P TAVR (transcatheter aortic valve replacement) Alirio Hudson MD [facility] [place] [address] Cardiac Rehab, [address] [place] [address] Referral ID Status Reason Start Date Expiration Date V isits Requested Visits Authorized [id number] Closed Consult, Test & Treat 05/22/2023 11/18/2023 36 36 * Diagnostic Test (Routine) - Closed Specialty Diagnoses / Procedures Referred By Crispin maxwell Referred To Contact Cardiology Diagnoses Aortic valve stenosis, etiology of cardiac valve disease unspecified Procedures Echocardiogram Transthoracic Transesophageal Echocardiogram (YUSRA) Radha Hollins MD [facility] [place] [address] [facility] [place] [address] Referral ID Status Reason Start Date Expiration Date V isits Requested Visits Authorized [id number] Closed Specialty Service Requested 05/11/2023 05/10/2024 1 1 Reason for Visit * Auth/Cert (Routine) Specialty Diagnoses / Procedures Referred By Crispin maxwell Referred To Contact Diagnoses Symptomatic severe aortic stenosis with low ejection fraction NSTEMI, CHF Enrique Chua MD [facility] [place] [address] [facility] Referral ID Status Reason Start Date Expiration Date Visits Re quested Visits Authorized [id number] 1 1 Encounter Details Date Type Department Care Team (Latest Contact Info) Description 05/08/2023 9:14 AM EDT - 05/22/2023 10:46 AM EDT Hospital Encounter Heart and Vascular Unit Level 4 [place] [address] Enrique Chua MD [facility] [place] [address] Juan Luis Gonzalez MD [facility] [place] [address] Radha Hollins MD [facility] [place] [address] Alirio Hudson MD S/P TAVR (transcatheter aortic valve replacement) (Primary Dx); Aortic valve stenosis, etiology of cardiac valve disease unspecified; Symptomatic severe aortic stenosis with low ejection fraction; Heart failure with reduced ejection fraction due to heart valve disease; Mild coronary artery disease by [facility] 11/09/2022; Mixed connective tissue disease; [...] Patient Age: 67 y.o. Birthdate: 1955 Language: Turkish Race: White Ethnicity: Not nor Admit Date: 05/08/2023 Discharge Date: 05/22/2023 Attending Physician: Alirio Hudson MD Follow-up Recommendations for Providers: Please continue routine management of cardiovascular risk factors including blood pressure, lipids,glucose, etc. Please note any medication changes. Patient to follow up with PCP, Magdalena Acosta MD, or Primary Hammer Runner, Avis Mejia MD, in ~ 7-10 days. Patient to follow up with Driveway Sealer, Dr. Antelmo Sharma, in 2 weeks with an EKG, Echo, CBC, and CMP. Patient to follow up with Nephrology, their office to arrange. Esng-Lhciph-rf interval: After initial 30 day follow-up appointment , all TAVR patients will follow-up again in one year with an echo. 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 Secondary Diagnoses: Active Hospital Problems Diagnosis S/P TAVR (transcatheter aortic valve replacement) Cardiogenic shock Symptomatic severe aortic stenosis with low ejection fraction Mild coronary artery disease by [facility] 11/09/2022 Heart failure with reduced [...] Tube Placement Right 05/18/2023 Laure Ricks PA [facility] INTERVENTIONL RAD PRG CATH PLMT LEFT HEART CATH & ARTS W/INJ & ANGIO IMG S&I N/A 11/09/2022 CORONARY ANGIOGRAPHY; W [facility],POSSIBLE PCI (WRVU 5.6) performed by Mario Alberto Escobedo MD at [facility] CATH LABS PRG COMBINED RIGHT & LEFT HEART CATH W/INJ L VENTRICULOGRAPHY, IMG S&I N/A 05/12/2023 COMBINED RIGHT & LEFT HEART CATH,INC INJ FOR L VENTRICULOGRAPHY (WRVU 5.99) performed by Antelmo Sharma MD at [facility] CATH LABS PRO AORTOPLAS FOR SUPRAVALV STEN N/A 09/21/2016 @AORTOPLASTY FOR SUPRAVALVULAR STENOSIS (WRVU 29.33) performed by Alirio Hudson MD at [facility] MAIN OR PRO REPLACE AORTIC VALVE (TAVR/FEDERICO)PERC FEMORAL ARTERY APPROACH 05/12/2023 @TRANSCATHETER AORTIC VALVE REPLACEMENT (TAVR), PERCUTANEOUS FEMORAL (WRVU 22.47) performed by Alirio Hudson MD at [facility] CATH LABS PRO REPLACEMENT PROSTHETIC AORTIC VALVE OPEN W CARDIOPULMONARY BYPASS HOMOGRF/STENT N/A 09/21/2016 @REPLACE AORTIC VALVE, OPEN, W\CPB, W\PROSTHETIC VALVE (WRVU 41.32) performed by Alirio Hudson MD at [facility] MAIN OR Prior To Admission Medications [...] No Known Allergies History of Presentation: Purnima Thakcer is a 67 y.o. female with known [...] Major Procedures/Operations: 05/12/23: Successful right transfemoral TAVR Nzkii-xi-Ogzxx with a 23 mm Lai 3 THV. Left coronary protection with left main MINNA. Hospital Course: #Severe prosthetic s/p valve in valve TF TAVR #Low coronary heights s/p left main stent for coronary protection #Type 2 NSTEMI, present on arrival, resolved #Acute decompensated HFrEF #Cardiogenic shock #EVANS / Cardiorenal syndrome Purnima Thacker was admitted to [facility] on 05/08/2023 via the Cardiology Service [...] TAVR and she was brought to the director of cardiac cath lab the following morning where Drs. Alirio Hudson [...] if you have questions. Please call your Driveway Sealer's office if you have any discharge or drainage from your procedural sites. Your Driveway Sealer, Dr. Antelmo Sharma and/or the It Support Engineer may be reached at . Antibiotic prophylaxis: You will need to take antibiotics prior to many invasive tests and treatments, such as dental cleaning, which should be done every 6 months. Your primary care physician or your dentist can prescribe this medication. Please refer to the card with the [place] [employer] Guidelines for more information. You have been provided with a copy of this card. Please refer to the [place] [employer] Guidelines for more information. Good [...] friends, go to a movie, go to oriental orthodox, etc. Heavy activities: No hunting, skiing, jogging, [...] should resume a low fat, low cholesterol, [place] [employer] Diet Driving: No restrictions. Shower/Bath: You may shower daily. No baths, soaking, or swimming for the first week. Wound care: Wash the sites daily with soap and rinse well, pat dry. Assess for any signs of infection such as increased redness, pain, warmth or drainage. Please call your fitting room maintenance mechanic's office if you have any discharge or drainage from your procedural sites. If there is a lot of swelling, apply mamta wraps during the day and remove at bedtime. Elevate your legs when you are sitting. Home oxygen therapy: N/A Follow up appointments: Please schedule a follow-up appointment with your PCP, Magdalena Acosta MD, or Primary Hammer Runner in ~ 7-10 days. You have a follow-up appointment with your Driveway Sealer, Dr. Antelmo Sharma, in 2 weeks with an EKG, Echo, and labs prior to your appointment. You will need follow-up with Nephrology, their office will arrange. Wbku-Gbgxlu-cu interval: After initial 30 day follow-up appointment , all TAVR patients will follow-up again in one year with an echo. Cardiac Rehabilitation: Purnima Thacker was seen today regarding participation in the outpatient Phase [address] [facility]. The patient agrees to a referral to this program. The referral will be sent at discharge and the patient should be contacted by the Program within 1- 2 weeks from discharge. Future Appointments and Orders Future Appointments and Orders Future Appointments Provider Department Dept Phone 07/29/2023 11:00 AM Magdalena Peralta MD Rheumatology at [facility] Arrive at: Racing Secretary [address] [phone] 02/11/2024 2:00 PM Marek Bonilla MD Dermatology at [place] Arrive at: [facility] [address] [phone] Future Orders Complete By Expires Type and Screen Future Surgery, [facility] SAME DAY PROGRAM ONLY) [KQB0971 Custom] 05/11/2023 Process Instructions: This test is intended ONLY for patients with upcoming surgery for testing prior to the day of surgery obtained through the same day program (4V or SDP). For ALL OTHER PATIENTS, order a Type and Screen (TFB527) This order includes the physician order for an ABO Recheck if requested by the Blood Bank. Scheduling Instructions: Comments: Questions: Date of surgery: CBC (with Diff) [JHC724 Custom] 06/05/2023 12/05/2023 Process Instructions: INCLUDES: WBC, RBC, Hgb, Hct, Platelets, RBC Indices and Differential Scheduling Instructions: Comments: Questions: Comprehensive metabolic panel (non-fasting) [LAB17 Custom] 06/05/2023 08/20/2023 Process Instructions: INCLUDES: Calcium, T Protein, Albumin, AST, ALT, Alk Phos, T Bili, BUN, Creat, GFR, Glucose, Lytes. Scheduling Instructions: Comments: Questions: Echocardiogram Transthoracic [37468 CPT(R)] 06/05/2023 12/05/2023 Process Instructions: Scheduling Instructions: Questions: Where will study be performed?: [facility] Clinics Does the patient have Congenital Heart Disease?: Does patient require sedation?: GA rationale: EKG 12 Lead [90599 CPT(R)] 06/05/2023 12/05/2023 Process Instructions: Scheduling Instructions: Questions: Which location will this be performed?: [place] Is a rhythm strip needed?: No [employer] Devices [EQ161 Custom] As directed Process Instructions: Scheduling Instructions: Questions: Device Needed: WALKER (E0143) Patient Height (cm): 154.9 cm (5' 0.98) Patient Weight: 75.4 kg (166 lb 3.2 oz) Diagnosis: Unsteady gait when walking Referral to Cardiac Rehab [FVM601 Custom] As directed Process Instructions: If no progress note charted, please enter Clinical details in comments. Scheduling Instructions: Questions: My question or request is: s/p TAVR. Cardiac rehab at [facility]. Referral to Home Health [REF34 Custom] As directed Process Instructions: If no progress note charted, please enter Clinical details in comments. Scheduling Instructions: Comments: DOCUMENTATION FOR VNA SERVICES PATIENT'S LOCATION: Purnima Thacker [address] [place] [phone] (home) Head Of Mathematics's Name: Self and brother Raymond In discussion with the attending physician, it is certified that this patient is under his/her careand that MD, or an [address] SQL DEVELOPER, WORDPRESS DEVELOPER, or PA who is working directly with him/her, had a dool-ds-vymm encounter that meets the physician onfe-cz-dult encounter requirements with this patient on 05/22/2023. [...] for managing ADLs. HOME HEALTH CARE AGENCY: [facility]. [address] [place] [address] PHONE: [phone] FAX: [phone] Start of care: Ideally 24-48 hours after [...] Magdalena Acosta MD [address] / [facility] [address] All VNA agencies which cover the area of patient's residence have been reviewed, either verbally joao writing, and patient has chosen the home health care agency noted. Questions: Disciplines Requested: Physical Therapy Occupational Therapy Discharge References/Attachments None Arrangements for VNA/home care: As above. (delete if no VNA) Signed: EKATERINA NAVARRETE [facility] Section of Cardiac Surgery Date: 05/22/2023 CC: Magdalena Acosta MD [place] Alberto MD [address] [place] [address] documented in this encounter Discharge Instructions * Patient Instructions* Vinod Juárez PA - 05/22/2023 9:32 AM EDT TAVR Discharge Instructions: Call your doctor if: You have a fever of greater than 101 degrees, shaking chills, if you develop redness or drainage from your procedure sites, or if you have questions. Please call your Driveway Sealer's office if you have any discharge or drainage from your procedural sites. Your Driveway Sealer, Dr. Antelmo Sharma and/or the It Support Engineer may be reached at . Antibiotic prophylaxis: You will need to take antibiotics prior to many invasive tests and treatments, such as dental cleaning, which should be done every 6 months. Your primary care physician or your dentist can prescribe this medication. Please refer to the card with the [place] [employer] Guidelines for more information. You have been provided with a copy of this card. Please refer to the [place] Heart [employer] Guidelines for more information. Good [...] friends, go to a movie, go to oriental orthodox, etc. Heavy activities: No hunting, skiing, jogging, [...] should resume a low fat, low cholesterol, [place] Heart [employer] Diet Driving: No restrictions. Shower/Bath: You may shower daily. No baths, soaking, or swimming for the first week. Wound care: Wash the sites daily with soap and rinse well, pat dry. Assess for any signs of infection such as increased redness, pain, warmth or drainage. Please call your fitting room maintenance mechanic's office if you have any discharge or drainage from your procedural sites. If there is a lot of swelling, apply mamta wraps during the day and remove at bedtime. Elevate your legs when you are sitting. Home oxygen therapy: N/A Follow up appointments: Please schedule a follow-up appointment with your PCP, Magdalena Acosta MD, or Primary Hammer Runner in ~ 7-10 days. You have a follow-up appointment with your Driveway Sealer, Dr. Antelmo Sharma, in 2 weeks with an EKG, Echo, and labs prior to your appointment. You will need follow-up with Nephrology, their office will arrange. Jgpi-Kazhyx-sc interval: After initial 30 day follow-up appointment , all TAVR patients will follow-up again in one year with an echo. Cardiac Rehabilitation: Purnima Thacker was seen today regarding participation in the outpatient Phase [address] [facility]. The patient agrees to a referral [...] ins ( tef) Haven Ba, PT Pager: [phone] Physical Therapy Inpatient Rehabilitation Department * Nico [...] 0600 and on the weekends please page [phone]. * Jory Paniagua - 05/20/2023 3:52 PM [...] vomiting Last Bowel Movement: 05/20/23 Jory Paniagua Heel Turner * Rashid Tong, OT - 05/20/2023 3:16 [...] Tube Placement Right 05/18/2023 Laure Ricks PA [facility] INTERVENTIONL RAD PRG CATH PLMT LEFT HEART CATH & ARTS W/INJ & ANGIO IMG S&I N/A 11/09/2022 CORONARY ANGIOGRAPHY; W [facility],POSSIBLE PCI (WRVU 5.6) performed by Mario Alberto Escobedo MD at [facility] CATH LABS PRG COMBINED RIGHT & LEFT HEART CATH W/INJ L VENTRICULOGRAPHY, IMG S&I N/A 05/12/2023 COMBINED RIGHT & LEFT HEART CATH,INC INJ FOR L VENTRICULOGRAPHY (WRVU 5.99) performed by Antelmo Sharma MD at [facility] CATH LABS PRO AORTOPLAS FOR SUPRAVALV STEN N/A 09/21/2016 @AORTOPLASTY FOR SUPRAVALVULAR STENOSIS (WRVU 29.33) performed by Alirio Hudson MD at [facility] MAIN OR PRO REPLACE AORTIC VALVE (TAVR/FEDERICO)PERC FEMORAL ARTERY APPROACH 05/12/2023 @TRANSCATHETER AORTIC VALVE REPLACEMENT (TAVR), PERCUTANEOUS FEMORAL (WRVU 22.47) performed by Alirio Hudson MD at [facility] CATH LABS PRO REPLACEMENT PROSTHETIC AORTIC VALVE OPEN W CARDIOPULMONARY BYPASS HOMOGRF/STENT N/A 09/21/2016 @REPLACE AORTIC VALVE, OPEN, W\CPB, W\PROSTHETIC VALVE (WRVU 41.32) performed by Alirio Hudson MD at [facility] MAIN OR Social History: Patient lives alone. Home Setup: Pt lives on one level with tub shower and three steps to enter. DME: none used CLINICAL RESEARCH NURSE COORDINATOR Baseline ADL/Mobility: Independent with ADLs and IADLs. [...] awareness: WFL Vision & Perception: corrective lenses timekeeper Communication: WFL Range of motion, strength, coordination: [...] Discharge planning. Total Minutes, Occupational Therapy: 28 (7817-2122) OT Evaluation Code Rationale: Diagnosis & Pertinent Co-Morbidities affecting Plan of Care: see PMHx Occupational Profile & Client History: Brief Expanded Extensive x Assessment of Occupational Performance: 1-3 performance deficits 3-5 performance deficits x 5 + performance deficits Clinical Decision Making: Low Moderate High x Clinical decision making of moderate complexity using standardized patient assessment instrument and measurable assessment of functional outcome. Pager: [phone] TONG MIKE OT 05/20/2023 Occupational Therapy Rehabilitation [...] attending surgeon on rounds this morning. EKATERINA Farely 05/20/2023 Between the hours of 1800 - 0600 and on the weekends please page [phone]. * Rylie Rodriguez MD - 05/19/2023 3:59 [...] and plan. Cynthia Blackburn MD Nephrology Pager: [phone] * Diana Espino - 05/19/2023 1:[address] Patrol Officer Encounter Note Patient Name: Purnima Thacker : [id number] MR#: [id number] Admit Date: 05/08/2023 9:14 AM Hospital Day [...] as stated. Total Minutes, Physical Therapy: 38 ([phone]) Henrik Dale CANDY Navarrete Pager: [phone] Physical Therapy Inpatient Rehabilitation Department * Nico [...] with attending surgeon on rounds this morning. EKATERNIA KIM 05/19/2023 Between the hours of 1800 - 0600 and on the weekends please page [phone]. * Laure Ricks PA - 05/19/2023 7:56 [...] Ricks PA-C Interventional Radiology IR Team Pager [phone] * Consuelo Espinoza RN - 05/18/2023 4:13 PM EDT ANGIO NURSING DATABASE Name: Purnima Thacker Date of : 1955 AGE: 67 y.o. Address: [address] [place] [phone] (home) Mobile: No relevant phone numbers on [...] and plan. Cynthia Blackburn MD Nephrology Pager: [phone] * Magdalena Puri, ANURAG - 05/18/2023 10:51 AM EDT Images from the original note were not included. [facility] [address] [place], [place] [address] STRUCTURAL HEART DISEASE CONSULTATION NOTE PRIMARY CARE [...] stenosis. She is now status post TAVR Yvtdo-fh-Xksvn with a 23 mm Lai 3 THV 05/12/[address] Sharma. Preliminary findings: Successful right transfemoral TAVR Skosn-vu-Qpkbe with a 23 mm Lai 3 THV. [...] perforation. Interval Events: - 05/12 Transferred to [facility] post- TAVR for pressor/inotropic support (Levo, [...] ejection fraction Mild coronary artery disease by [facility] 11/09/2022 Heart failure with reduced [...] mg 81 mg Oral Daily Mara Serrano FORMING ROLL OPERATOR HEAVY DUTY 81 mg at 05/18/23 0826 ondansetron (pf) [...] stenosis. She is now status post TAVR Fhfxe-qj-Pcdum with a 23 mm Lai 3 THV [...] Magdalena Puri APRN Structural Heart Team Pager [phone] Team Office Please see addendum by Dr. Sharma for final plan and recommendations Associated attestation - Antelmo Sharma MD - 05/19/2023 10:52 PM EDT I have reviewed Magdalena Puri APRN's above history and I agree with the details as written. The assessment and plan were formulated in discussion with me and I agree with them as documented. Antelmo Sharma MD Pager [phone] * Nico Palacios PA - 05/18/2023 8:13 [...] 0600 and on the weekends please page [phone]. * oLli Hernandez, PT - 05/17/2023 5:27 PM EDT [...] plan as stated. Time IN / OUT: 4911-8507 Total Minutes, Physical Therapy: 54 Billing Code: te-sx2, te-f, gait LOLI HERNANDEZ PT Pager: [phone] Physical Therapy Inpatient Rehabilitation Department * Cynthia [...] Well controlled. Cynthia Blackburn MD Nephrology Pager: [phone] * Mara Serrano, FORMING ROLL OPERATOR HEAVY DUTY - 05/17/2023 8:26 AM EDT Cardiac Surgery [...] 0600 and on the weekends please page [phone]. * Guerda Del Valle - 05/16/2023 10:44 AM EDT Nutrition Services Note - Low Nutrition Acuity Purnima Thacker is a 67 y.o. female Reason for intervention: hospital day 9 Nutrition Plan: Continue diet order Encourage good PO Lasix and Zofran noted Added special serve: open containers Monitor weight Patient scheduled for a hospital day 9 nutrition evaluation. Aerial Sprayer met with pt at bedside. Pt reports that her appetite and PO has much improved since admission. Denies nausea/vomiting or trouble chewing/swallowing. Aerial Sprayer provided snack list but pt not interested in adding snacks at this time. Her only concern was that she is worried that she will eat too much which will cause too much pressure in her stomach. Aerial Sprayer assured pt and suggested eating smaller but [...] Last Bowel Movement: 05/10/23 Guerda Del Valle Heel Turner * Vinod Juárez PA - 05/16/2023 10:19 [...] 0600 and on the weekends please page [phone]. * Michael Jeffers MD - 05/16/2023 8:11 AM EDT Images from the original note were not included. Hypertension-Nephrology Inpatient Follow-up Purnima Thacker [id number] 1955 ID: 67 y.o. old female seen [...] IRONSAT 12 (L) 05/16/2023 SFOLATE >20.0 07/03/2022 [id number] 07/03/2022 Lab Results Component Value Date [...] Dr. Ayoub. Please contact me at phone: [phone] or pager: [phone] with any questions. Michael Jeffers MD Nephrology [...] -Nephrology consulted, labs and renal US ordered -[place] removed, ambulated around the unit -bilateral pleural [...] 0600 and on the weekends please page [phone]. * Hortencia Cody MD - 05/15/2023 2:07 [...] not included. Hypertension-Nephrology Inpatient Follow-up Purnima Thacker [id number] 1955 ID: 67 y.o. old female seen [...] HGB 7.8 (L) 05/13/2023 SFOLATE >20.0 07/03/2022 [id number] 07/03/2022 Lab Results Component Value Date [...] Dr. Ayoub. Please contact me at phone: [phone] or pager: [phone] with any questions. Michael Jeffers MD Nephrology [...] outlined inthis evaluation. HAVEN BA, PT Pager: [phone] Physical Therapy Inpatient Rehabilitation Department Time IN / OUT: 7445-6883 Total time: Total Minutes, Physical Therapy: 30 [...] 0600 and on the weekends please page [phone]. * Antelmo Sharma MD - 05/14/2023 7:56 AM EDT Images from the original note were not included. [facility] [place] [address] [address] STRUCTURAL HEART DISEASE CONSULTATION NOTE PRIMARY CARE [...] stenosis. She is now status post TAVR Wwiuu-ps-Irzma with a 23 mm Lai 3 THV 05/12/[address] Sharma. Preliminary findings: Successful right transfemoral TAVR Lguca-id-Tcike with a 23 mm Lai 3 THV. [...] ejection fraction Mild coronary artery disease by [facility] 11/09/2022 Heart failure with reduced [...] stenosis. She is now status post TAVR Epdad-jt-Htixy with a 23 mm Lai 3 THV [...] Dale ANURAG Kaplan Structural Heart Team Pager [phone] Team Office Please see addendum by Dr. [...] exposure. Nephrology consultationtoday. Antelmo Sharma MD Pager [phone] * Antelmo Cardenas RN - 05/14/2023 5:18 AM EDT Pt AOx4, complaining of mild/moderate generalized pain (states her Meloxicam is effective at home) currently refusing prn oxycodone. NAEON, hemodynamically stable on Milrinone, Maps >65, ST in alp565's down to NSR with frequent multifocal PVC's. [...] original note were not included. [facility] [place] [place] [address] STRUCTURAL HEART DISEASE PROGRESS NOTE PRIMARY CARE [...] stenosis. She is now status post TAVR Ovwfd-id-Qnopf with a 23 mm Lai 3 THV 05/12/[address] Sharma. Preliminary findings: Successful right transfemoral TAVR Ygros-mf-Kkodx with a 23 mm Lai 3 THV. [...] or perforation. Interval Events: - Transferred to [facility] post- TAVR for pressor/inotropic support (Levo, [...] ejection fraction Mild coronary artery disease by [facility] 11/09/2022 Heart failure with reduced [...] stenosis. She is now status post TAVR Dkfvj-fw-Tiqww with a 23 mm Lai 3 THV [...] Brody Kaplan APRN Structural Heart Team Pager [phone] Team Office Please see addendum by Dr. [...] DAPT moving forward. Antelmo Sharma MD Pager [phone] * Bonita Miguel PA - 05/13/2023 8:30 AM EDT Cardiac Surgery Progress Note Purnima Thacker is a 67 y.o. 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 PMH of s/p tissue AVR (2017), mixed connective tissue disease HTN, HLD, NICOLAS, diverticulosis, rosacea, essential tremor, and depression. 24h Events: From director of cardiac cath lab for above procedure Extubated at ~1600 to [...] soft b/l, no evidence of hematoma. Tubes/Lines/Drains: [place], RIJ, A-line, Art, PIV Assessment/Plan: 67 y.o. [...] 0600 and on the weekends please page [phone]. * Onelia Schwartz MD - 05/12/2023 1:44 [...] ejection fraction Mild coronary artery disease by [facility] 11/09/2022 Heart failure with reduced [...] FiO2 weaned to 40%. 1105: ABG 7.34/42/73/22 3514-3151: SBT performed and passed on these settings [...] PCP: Magdalena Acosta MD PCP phone number: [phone] Date of Admission: 05/08/2023 ( Hospital Day [...] 1447 PHART -- 7.34* 7.34* -- -- OBR2AAT -- 30* 30* -- -- PO2ART -- 72* 81* -- -- KQG1HGR -- 16.0* 15.7* -- -- LACTATEVEN 2.4* 2.7* 2.7* 4.8* 2.9* VBG (Venous Blood Gas) Recent Labs 05/12/23 0700 05/12/23 0318 05/12/2310505/11/23193905/11/23 1447 LACTATEVEN 2.4* 2.7* 2.7* 4.8* 2.9* Mixed Venous Sat Recent Labs 05/12/23 0508 05/12/23 0321 05/12/23 0114 05/12/23 0030 [id number] 30.7 32.7 37.3 25.1 Objective: Vitals Last [...] questions please contact the health health care social worker that requested your imaging first. Electronically signed by: ALIX RUVALCABA MD, [facility] ([phone]), at 05/10/2023 1:[address] Cardiac for [...] questions please contact the health health care social worker that requested your imaging first. Electronically signed by: Cullen Narayanan MD, [facility] ([phone]), at 05/11/2023 4:[address] Angiogram Abdomen [...] questions please contact the health health care social worker that requested your imaging first. Electronically signed by: Eileen Gomes MD, [facility] ([phone]), at 05/11/2023 2:42 PM XR Chest One [...] questions please contact the health health care social worker that requested your imaging first. Chest One [...] questions please contact the health health care social worker that requested your imaging first. Assessment & [...] and inotrope. She is planned for a qzexm-yp-qqabq TAVR this morning, which should hopefully improve [...] MD, FACP, FACC Section of Cardiovascular Medicine [facility] Mine Inspector Federalpublicity agent [facility] at [facility] * Noreen Deutsch RN - [...] ejection fraction Mild coronary artery disease by [facility] 11/09/2022 Heart failure with reduced [...] 05/11/2023 4:11 PM EDT Reported off to COVER STRIPPER and pt transferred over in the bed for higher level of care. * Antelmo Sharma MD - 05/11/2023 9:45 AM EDT Images from the original note were not included. [facility] [place] [id number] STRUCTURAL HEART DISEASE CONSULTATION NOTE PRIMARY CARE [...] who had been referred for possible TAVR unsyp-fy-pzzck evaluation. Her primary symptoms are of dyspnea [...] otherwise negative. Ms. Thacker is originally from [facility]. 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 She states [...] ejection fraction Mild coronary artery disease by [facility] 11/09/2022 Heart failure with reduced [...] hour(s)) Lactate, whole blood, send to lab ([facility]) Result Value Ref Range Lactate WB 3.1 (H) 0.5 - 2.2 mmol/L Heparin (unfractionated) Level Result Value Ref Range Heparin UFH Level 0.46 IU/mL Lactate, whole blood, send to lab ([facility]) Result Value Ref [...] leads Confirmed by MD Harshil, Enrique Bell ([id number]) on 05/10/2023 8:11:46 AM Cardiac Cath 11/09/2022 [...] to decompensating HFrEF, she was transferred to [facility] this afternoon for further management. TAVR CT imaging support for adequate ileofemoral access. Given her acute deterioration today, will planfor RTF TAVR on 05/12/2023. Brody Kaplan ANURAG Structural Heart Disease Pager [phone] Please see addendum by Dr. Sharma for [...] signed and dated. Antelmo Sharma MD Pager [phone] * Harini Lance MD - 05/11/2023 6:06 AM EDT Images from the original note were not included. Cardiology Progress Note Patient info: Name: Purnima Thacker : 1955 PCP: Magdalena Acosta MD PCP phone number: [phone] Date of Admission: 05/08/2023 ( Hospital Day [...] questions please contact the health health care social worker that requested your imaging first. Electronically signed by: ALIX RUVALCABA MD, [facility] ([phone]), at 05/10/2023 1:25 PM TTE: 05/08 -Left [...] 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) Mild coronary artery disease by [facility] 11/09/2022 Hyperlipidemia, unspecified NICOLAS (obstructive [...] info: Name: Purnima Thacker : 1955 PCP: Magdaelna Acosta MD PCP phone number: [phone] Date of Admission: 05/08/2023 ( Hospital Day [...] 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) Mild coronary artery disease by [facility] 11/09/2022 Hyperlipidemia, unspecified NICOLAS (obstructive [...] PCP: Magdalena Acosta MD PCP phone number: [phone] Date of Admission: 05/08/2023 ( Hospital Day [...] Gas) No results found for: PHART, PO2ART, GMQ2RTS, ZGN7UJW Microbiology: Microbiology Results (Last 30 days) No [...] PPx: Diet: Daily Healthy Menu Choices/Cardiac diet ([facility]-Diet) Lines: Peripheral IV Line - Single Lumen [...] 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) Mild coronary artery disease by [facility] 11/09/2022 Hyperlipidemia, unspecified NICOLAS (obstructive [...] IMG S&I N/A 11/09/2022 CORONARY ANGIOGRAPHY; W [facility],POSSIBLE PCI (WRVU 5.6) performed by Mario Alberto Escobedo MD at [facility] CATH LABS PRO AORTOPLAS FOR SUPRAVALV STEN N/A 09/21/2016 @AORTOPLASTY FOR SUPRAVALVULAR STENOSIS (WRVU 29.33) performed by Alirio Hudson MD at [facility] MAIN OR PRO REPLACEMENT PROSTHETIC AORTIC VALVE OPEN W CARDIOPULMONARY BYPASS HOMOGRF/STENT N/A 09/21/2016 @REPLACE AORTIC VALVE, OPEN, W\CPB, W\PROSTHETIC VALVE (WRVU 41.32) performed by Alirio Hudson MD at [facility] MAIN OR Social History and Habits: [...] Verio test strips Strip USE DAILY OneTouch DelPhotoFix UK Plus Lancet 33 gauge Misc USE DAILY [...] IMG S&I N/A 11/09/2022 CORONARY ANGIOGRAPHY; W [facility],POSSIBLE PCI (WRVU 5.6) performed by Mario Alberto Escobedo MD at [facility] CATH LABS PRO AORTOPLAS FOR SUPRAVALV STEN N/A 09/21/2016 @AORTOPLASTY FOR SUPRAVALVULAR STENOSIS (WRVU 29.33) performed by Alirio Hudson MD at [facility] MAIN OR PRO REPLACEMENT PROSTHETIC AORTIC VALVE OPEN W CARDIOPULMONARY BYPASS HOMOGRF/STENT N/A 09/21/2016 @REPLACE AORTIC VALVE, OPEN, W\CPB, W\PROSTHETIC VALVE (WRVU 41.32) performed by Alirio Hudson MD at [facility] MAIN OR Social History and Habits: [...] which prompted her to present to [employer]. She also endorses some intermittent retrosternal chest pain with exertion.She endorses some dizziness with exertion, but has not gotten faint or passed out. At [employer] she was noted to be afebrile, blood pressure 105/64, HR 120s, satting 95% on 2L NC. Labs from [facility] are below, of note she had [...] which prompted the transfer to us. [facility] labs: CBC - Hgb 10.5 CMP - Cr 1.1 BNP 57175 HsTrop 1358 Lactate 1.6 D-dimer 1183 Interval [...] Code Status: Attempt Cardiopulmonary Resuscitation - Inpatient [facility] Roman Reid MD Internal Medicine PGY-1 Pager [phone], M1-S1 Service Associated attestation - Juan Luis Gonzalez MD - 05/08/2023 10:00 PM EDT Cardiology Attending Addendum Active Hospital Problems Diagnosis Symptomatic severe aortic stenosis with low ejection fraction Heart failure with reduced ejection fraction due to heart valve disease Mild coronary artery disease by [facility] 11/09/2022 Hyperlipidemia, unspecified History of [...] PCP: Magdalena Acosta MD PCP phone number: [phone] Date of Admission: 05/08/2023 ( Hospital Day 0 days ) Attending:Enrique Chua MD ID: Purnima Thacker is a 67 y.o. female w/ PMH of s/p bioprosthetic AVR in 2016 with recent concern for severe restenosis, HTN, HLD, mixed connective tissue disease, who presents in transfer from [facility] with worsening BONILLA and weight gain [...] days, which promptedher to present to [employer] [facility]. She also endorses some intermittent retrosternal chest pain with exertion. She endorses some dizziness with exertion, but has not gotten faint or passed out. At [facility] she was noted to be afebrile, blood pressure 105/64, HR 120s, satting 95% on 2L NC. Labs from [facility] are below, of note she had [...] which prompted the transfer to us. [facility] labs: CBC - Hgb 10.5 CMP - Cr 1.1 BNP 95397 HsTrop 1358 Lactate 1.6 D-dimer 1183 Vasoactive [...] disease, who [facility] [place] and weight gain concerning [...] #Routine Diet: Daily Healthy Menu Choices/Cardiac diet ([facility]-Diet) DVT Prophylaxis: heparin gtt GI Prophylaxis: none [...] remains HD stable, can transfer out of [facility]. -Structural Heart consult; will need inpatient [...] to the planned procedure. Hand Hygiene: The carriage operator did perform hand hygiene prior to [...] Successful arterial line placement. Crispin Timmons MD It Support Engineer Associated attestation - Onelia Schwartz MD - [...] (flow was non-pulsatile) and appearance of blood. [place]-Marily catheter was placed and locked at 55 [...] information for follow-up [facility], [place] [address] [place] [address] Cardiac Rehab, [facility] [address] [place] [address] [facility] [address] [place] [address] Transportation: family or friend will provide *Brother [...] Type: *No Product type* / Secondary Insurance: [employer] [place] Prescription Coverage: Yes This plan was formulated with input from patient, family (please identify family/friend involved ifapplicable) and team. All are in agreement with plan. Aliza Martino MSN-Ed, RN ACM sandblast or shotblast equipment tender Office of Care Management Pager #[phone] * Plan of Care - Favian Mckeon [...] Chaudhary RN - 05/21/2023 4:46 PM EDTSummary: [facility] referral OFFICE OF CARE MANAGEMENT [...] Type: *No Product type* / Secondary Insurance: [employer] [place] Last Physical Therapy Recommendation: (Home with assist [...] describing our affiliations within the [facility] and educate about their right to choose where referrals are sent. provide a list of Home Health Agencies / Durable Medical Equipment vendors which serve their preferred geographic area. They have requested referrals to: [facility] [address] [place] [address] Ortho Care Located @ [place], [place] Note routed to a [employer] who will communicate referrals to facilities and provide any required information. Transportation: family or friend will provide *Brother Raymond on Tuesday 05/22 at 1000 Barriers to discharge: Does not have home 22/02 assist available until tomorrow Tuesday 05/22 Plan going forward: Discharge home into the 22/02 home care of brother Raymond with [facility] and [facility] PT/OT services on Tuesday 05/22 [...] Attending: All Staff: Staff Role Juanita Almaguer Solar Installation Crew Supervisor Laure Ricks PA Physician Behavioral Intervention Specialist Magdalena Rodriguez powered bridge specialist Nurse Consuelo Espinoza, powered bridge specialist Nurse Post-operative diagnosis/Indication: Right pleural effusion [...] Type: *No Product type* / Secondary Insurance: [employer] [facility] Last Physical Therapy Recommendation: [facility] facility, swing bed rehabilitation facility with to be determined Last Occupational Therapy Recommendation: with Plan for discharge is: Intermediate Facility / Swing Outpatient Agency/Support Group Needs: None Agency Referrals: Based on discussions with the multi-disciplinary healthcare team, the patient would benefit from SNF / Swing level of care at discharge. I have met with the patient to: discuss discharge planning needs. provide the [facility], Office of Care Management letter from the Family Court Justice pertaining to rehab referrals. provide a letter describing our affiliations within the [facility] and educate about their right to choose where referrals are sent. provide the CMS Star Quality Rating handout. review the different levels of rehab including SNF, swing, and acute. provide a list of facilities within their preferred geographic area. request that they provide at least three choices for referral. They have requested referrals to: [facility] [address] [place] [address] [facility]) [address] [place] [address] (Accepts pts only after exhausting all other local SNF options) [facility] ([facility]) ([facility]) [address] [place] [address] PHONE: [phone] FAX: [phone] [facility] [place] ([facility]) [facility]) [address] [place] [address] PHONE: [phone] FAX: [phone] Note routed to a [employer] who will communicate referrals to facilities and [...] Crenshaw RN - 05/17/2023 10:25 AM EDT [facility] CARDIAC REHABILITATION Purnima Thacker was seen today regarding participation in the outpatient Phase [address] [facility]. The patient agrees to a referral [...] from the original note were not included. [facility] NEPHROLOGY/HYPERTENSION CONSULT NOTE PATIENT: Purnima [...] in her course. She ultimately underwent a cfoec-ec-kykdl procedure on and tolerated it well (see [...] 1423 05/12/23 1105 PHART 7.39 7.37 7.34* KCO3OAB 33* 36 42 PO2ART 101 102 73* VNO6BKJ 19.5* 20.4 22.1 LACTATEVEN 1.5 1.8 2.8* HBP5WUJ 40 40 40 PFRATIOART2 252 255 182 VBG (Venous Blood Gas) Recent Labs 05/12/23 1557 05/12/23 1423 05/12/23 1105 LACTATEVEN 1.5 1.8 2.8* Mixed Venous Sat Recent Labs 05/12/23 1425 05/12/23 0508 05/12/23 0321 [id number] 59.9 30.7 32.7 LFT's: Recent Labs 05/14/23 0110 05/13/23 0115 05/12/23 0600 BILITOT 0.4 0.5 0.9 BILIDIR -- 0.3 -- ALBUMIN 3.6 3.0* 3.5 ALKPHOS 86 85 100 ALT 437* 903* 1,174* AST 319* 792* 1,435* No results found for: UPROTCREAT No results found for: TPROTEINPEP, ALBELECT No results found for: MICROALBUR, XILB22URO No results found for: HA1C Lab Results Component Value Date CALCIUM 8.5 05/14/2023 PHOS 4.7 (H) 05/08/2023 No results found for: 25OHVITD MICROBIOLOGY: ProcedureComponentValueUnitsDate/TimeUrine culture [[id number]]Collected: 05/11/231921Lab Status: Final resultSpecimen: Clean Catch UrineUpdated: [...] consulted for assessment if this patient needs CAKE KNOCKER. Atthis time, we can likely hold off on CAKE KNOCKER. Her volume status appears sufficient and her metabolic kanwal angements with mild acidosis is not too profound. Patient does not have significant uremic symptoms. We can hold off for today, but the patient is a high risk candidate for needing CAKE KNOCKER in future daysespecially if her Cr curve trends the direction it is for the next several days. S/p Cvjlf-up-Njjxr TF TAVR: Management per cardiology. On milrinone gtt. PLAN: - Please obtain following diagnostics: renal US, urinalysis, urine prot/Cr ratio, urine albumin/Cr ratio, CK, uric acid, serum osmol, daily VBGs - No acute indications for CAKE KNOCKER/dialysis. We will keep close eye on Cr trend, volume status, and metabolics to ensure patient still does not need CAKE KNOCKER as she ensues intrinsic renal recovery - [...] M.H.A., M.A. PGY-V Nephrology-Hypertension Fellow Page # [phone] [facility] [address] 2nd floor, Racing Secretary [address] [place] [address] * Care Management - Mario Alberto Olmos [...] Type: *No Product type* / Secondary Insurance: [facility] Plan for discharge is: Home [...] for a TAVR at 730. Returned to [facility] at 0945. Was intubated in the director of cardiac cath lab due to agitation. Maintained bedrest for 5 [...] Operative Note Patient Name: Purnima Thacker : [id number] MR#: [id number] Case Date: 05/12/2023 Surgeon: Surgeon(s) and Role: [...] procedure Note: Patient Name: Purnima Thacker : [id number] MR#: [id number] Case Date: 05/12/2023 Operators Surgeon: Surgeon(s) and [...] main with 4.0 x 30 mm Resolute Patterson Drug Eluting Stent Perclose x1 + Angio-seal 8 Fr x1, RFA Manual pressure, LFA Manual pressure, LFV Endotracheal intubation (performed by cardiac anesthesia) Preliminary findings: Successful right transfemoral TAVR Btixv-mm-Kqyhe with a 23 mm Lai 3 THV. [...] MD, M.Sc. Structural Heart Disease Fellow Pager :[phone] Antelmo Sharma MD Pager [phone] * Op Note - Alirio Hudson MD - 05/12/2023 7:37 AM EDT Preop Diagnosis: Severe aortic stenosis, symptomatic. Postop Diagnosis: Same. Procedure: Transfemoral TAVR procedure with 23mm valve. Surgeon: Alirio Hudson M.D. Hammer Runner: Danny CULP Procedure: The patient was taken to the director of cardiac cath lab. The patient had monitored anesthesia care. 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 [facility] Smoking - never ETOH - denies [...] original note were not included. [facility] [place] [address] STRUCTURAL HEART DISEASE CONSULTATION NOTE PRIMARY CARE [...] who had been referred for possible TAVR hposw-rk-thkga evaluation. Her primary symptoms are of dyspnea [...] otherwise negative. Ms. Thacker is originally from [facility]. 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 PROBLEM LIST: Patient Active Problem List Diagnosis Symptomatic severe aortic stenosis with low ejection fraction Mild coronary artery disease by [facility] 11/09/2022 Heart failure with reduced [...] 650 mg 650 mg Oral Q4H PRN Kluadia Reid MD influenza vaccine adjuvanted (Adult 65 [...] hour(s)) Lactate, whole blood, send to lab ([facility]) Result Value Ref [...] leads Confirmed by MD Harshil, Enrique Bell ([id number]) on 05/10/2023 8:11:46 AM Assessment and Plan: [...] Antelmo Sharma MD Structural Heart Disease Pager [phone] * Plan of Care - Sarahi Nice RN - 05/10/2023 3:55 AM EDTSumavis: VALDO Note and Care Plan Sarahi Nice RN assumed care of pt at time of their arrival to room 362 from [facility]. Pt voices shortness of breath at [...] from another hospital Location: admitted from [facility] Reason for Hospitalization: Critical aortic stenosis, [...] receiving care in [place] must abide by [place] law. The hierarchy [...] Current DME: none Home Address confirmed as: [address] [place] [id number] Social & Family Supports: All names listed [...] / Secondary Insurance: [facility] [place] ONLY if patient has Medicare A&B - Does this patient have secondary insurance?: Yes ; Prescription Coverage: Yes Preferred Pharmacy: updated to [facility] Status: Patient is a : No Primary Care Provider confirmed: Magdalena Acosta MD [phone] Patient/Caregiver Goals of Treatment: Potential Needs for [...] of a 2 story home with [address] [facility]. Patient is independent with ADL's at baseline [...] of care planning. Alie Bradshaw RN, CM Pager-[phone] * Plan of Care - Emily Lucero RN - 05/08/2023 2:54 PM EDT OUTCOME EVALUATION NOTE: OUTCOME SUMMARY: Pt arrived from [facility]. A&O, no c/o pain or SOB. [...] 4:15 PM EDT Office Visit Dermatology at [facility] [address] [place] [phone] Marek Bonilla MD [address], [place] [address] Scheduled Referrals Name Type Priority Associated Diagnoses [...] Heart Cath W/Inj L Ventriculography, Img S&I ([id number]) 05/12/2023 7:37 AM EDT Aortic valve stenosis, [...] EST Narrative 07/08/2023 12:26 PM EST [address] [place] [address] ? Echocardiogram Report Name: PURNIMA THACKER ?Study Date: 07/08/2023 10:31 AMBP: 118/60 mmHg ? [facility] 1955 ? Height: 155 cm ? Account: [id number] Age: 67 yrs ? Weight: 74 kg Gender: Female ?BSA: 1.7 m2 Ordering Physician: ALIRIO HUDSON Referring Physician: VINOD JUÁREZ Performed By: Felicia Norris RODOLFO Reason For Study: S/P TAVR Exam Location: [facility]. Interpretation Summary Left ventricular systolic function [...] no significant change (post-procedure). Procedure Limited - 03346. Doppler - 53853. Color Doppler - 53637. Satisfactory quality. This study is limited because [...] Note Lee Kincaid MD - 07/08/2023 [address] [place] [address] Echocardiogram Report Name: LASHELL THACKERDARWIN Mejias Study Date: 0:31 AMBP: 118/60 mmHg Patient Location: : 1955 Height: 155 cm Account: [id number] Age: 67 yrs Weight: 74 kg Gender: Female BSA: 1.7 m2 Ordering Physician: ALIRIO HUDSON Referring Physician: VINOD JUÁREZ Performed By: Felicia Norris RDCS Reason For Study: S/P TAVR Exam Location: [facility]. Interpretation Summary Left ventricular systolic function [...] is nosignificant change (post-procedure). Procedure Limited - 88397. Doppler - 67168. Color Doppler - 54855. Satisfactoryquality. This study is limited because of [...] EST) Glucose 93 65 - 199 mg/dL [facility] Comment:Diabetes: >=200 mg/d L plus symptoms Blood Urea Nitrogen 19(H) 8 - 18 mg/dL [facility] Creatinine 0.81 0.70 - 1.20 mg/dL [facility] Sodium 142 135 - 145 mmol/L [facility] Potassium 3.8 3.5 - 5.0 mmol/L [facility] Comment: Please note: ??Patients with WBC >100,000 may have falsely elevated Potassium levels. ??For accurate Potassium quantification in these patients send serum separator tube (gold top) for subsequent determinations. ??Contact the Clinical Chemistry Laboratory if there are any questions. Chloride 104 98 - 107 mmol/L [facility] Carbon Dioxide 26 22 - 31 mmol/L [facility] Anion Gap 12 5 - 15 mmol/L [facility] [facility] Calcium 10.2 8.5 - 10.5 mg/dL [facility] Protein, Total 7.4 6.1 - 8.0 g/dL [facility] Albumin 4.1 3.2 - 5.2 g/dL [facility] Aspartate Aminotransferase 24 0 - 30 unit/L [facility] Alanine Aminotransferase 12 0 - 30 unit/L [facility] Alkaline Phosphatase 93 35 - 105 unit/L [facility] Bilirubin, Total 0.3 0.2 - 1.3 mg/dL [facility] Est Glomerular Filtration Rate 80 >=60 mL/min/1. 73 m?? [facility] Comment: This patient's estimated [...] Lab Alirio Hudson MD CHEMISTRY ORDERABLE S [facility] [place] [address] * (ABNORMAL) Basic Metabolic Panel (non-fasting) (05/22/2023 3:57 AM EDT) Glucose 88 65 - 199 mg/dL [facility] Comment:Diabetes: >=200 mg/d L plus symptoms Blood Urea Nitrogen 21(H) 8 - 18 mg/dL [facility] Creatinine 0.69(L) 0.70 - 1.20 mg/dL [facility] Sodium 136 135 - 145 mmol/L [facility] Potassium 3.6 3.5 - 5.0 mmol/L [facility] Comment: Please note: ??Patients with WBC >100,000 may have falsely elevated Potassium levels. ??For accurate Potassium quantification in these patients send serum separator tube (gold top) for subsequent determinations. ??Contact the Clinical Chemistry Laboratory if there are any questions. Chloride 102 98 - 107 mmol/L [facility] Carbon Dioxide 23 22 - 31 mmol/L [facility] Anion Gap 11 5 - 15 mmol/L [facility] Calcium 8.6 8.5 - 10.5 mg/dL [facility] Est Glomerular Filtration Rate 95 >=60 mL/min/1. 73 m?? [facility] Comment: This patient's estimated [...] Lab Mara Serrano ANURAG CHEMISTRY ORDERABL ES [facility] [place] [address] * (ABNORMAL) Basic Metabolic Panel (non-fasting) (05/21/2023 5:06 AM EDT) Glucose 87 65 - 199 mg/dL [facility] Comment:Diabetes: >=200 mg/d L plus symptoms Blood Urea Nitrogen 25(H) 8 - 18 mg/dL [facility] Creatinine 0.84 0.70 - 1.20 mg/dL [facility] Sodium 136 135 - 145 mmol/L [facility] Potassium 3.6 3.5 - 5.0 mmol/L [facility] Comment: Please note: ??Patients with WBC >100,000 may have falsely elevated Potassium levels. ??For accurate Potassium quantification in these patients send serum separator tube (gold top) for subsequent determinations. ??Contact the Clinical Chemistry Laboratory if there are any questions. Chloride 102 98 - 107 mmol/L [facility] Carbon Dioxide 26 22 - 31 mmol/L [facility] Anion Gap 8 5 - 15 mmol/L [facility] Calcium 8.9 8.5 - 10.5 mg/dL [facility] Est Glomerular Filtration Rate 76 >=60 mL/min/1. 73 m?? [facility] Comment: This patient's estimated [...] Narrative Resulting Agency Comment Spec In Lab [facility] FORMING [employer]LL OPERATOR HEAV[employer] DUTY CHEMISTRY ORDERABL ES Performing Organization Address City/[facility]/ZIP Co de Phone Number [facility] [place] [address] * Lavender Tube HOLD (05/20/2023 2:52 AM EDT) Lavender Hold Sample in lab. [facility] Blood Venous Draw / Unknown 05/20/2023 2:52 AM EDT 05/20/2023 3:04 AM EDT [facility] [employer]MING [employer]LL OPERATOR HEAV[employer] D[employer]Y HEMATOLOGY ORDERAB LES Performing Organization Address City/[facility]/ZIP Co de Phone Number [facility] [place] [address] * (ABNORMAL) Basic Metabolic Panel (non-fasting) (05/20/2023 2:52 AM EDT) Glucose 152 65 - 199 mg/dL [facility] Comment:Diabetes: >=200 mg/d L plus symptoms Blood Urea Nitrogen 33(H) 8 - 18 mg/dL [facility] Creatinine 0.82 0.70 - 1.20 mg/dL [facility] Sodium 137 135 - 145 mmol/L [facility] Potassium 3.7 3.5 - 5.0 mmol/L [facility] Comment: Please note: ??Patients with WBC >100,000 may have falsely elevated Potassium levels. ??For accurate Potassium quantification in these patients send serum separator tube (gold top) for subsequent determinations. ??Contact the Clinical Chemistry Laboratory if there are any questions. Chloride 99 98 - 107 mmol/L [facility] Carbon Dioxide 22 22 - 31 mmol/L [facility] Anion Gap 16(H) 5 - 15 mmol/L [facility] Calcium 9.0 8.5 - 10.5 mg/dL [facility] Est Glomerular Filtration Rate 78 >=60 mL/min/1. 73 m?? [facility] Comment: This patient's estimated [...] Agency Comment Spec In Lab Mara [place] FORMING ROLL OPERATOR HEAVY DUTY CHEMISTRY ORDERABL ES Performing Organization Address [facility] [[email or web address]] Co de Phone Number [facility] [place] [address] * (ABNORMAL) Potassium (05/20/2023 2:52 AM EDT) [facility] Potassium 3.4(L) 3.5 - 5.0 mmol/L [facility] Comment: Please note: ??Patients with WBC >100,000 may have falsely elevated Potassium levels. ??For accurate Potassium quantification in these patients send serum separator tube (gold top) for subsequent determinations. ??Contact the Clinical Chemistry Laboratory if there are any questions. Blood 05/20/2023 2:52 AM EDT 05/20/2023 3:03 AM EDT Narrative Resulting Agency Comment Spec In Lab Mara [place] FORMING ROLL OPERATOR HEAVY DUTY CHEMISTRY ORDERABL ES Performing Organization Address [facility] de Phone Number [facility] [place] [address] * XR Chest PA & Lateral (Generic) [...] questions please contact the health health care social worker that requested your imaging first. ? Electronically signed by: Chyna Johnson MD, [facility] ??([phone]), at 05/19/2023 2:19 PM Narrative 05/19/2023 2:19 [...] have questions please contactthe health health care social worker that requested your imaging first. Electronically signed by: Chyna Johnson MD, [facility]([phone]), at 05/19/2023 2:19 PM Alirio Hudson MD IMG DX ORDERABLES * (ABNORMAL) Basic Metabolic Panel (non-fasting) (05/19/2023 5:49 AM EDT) Glucose 93 65 - 199 mg/dL [facility] Comment:Diabetes: >=200 mg/d L plus symptoms Blood Urea Nitrogen 45(H) 8 - 18 mg/dL [facility] Creatinine 1.02 0.70 - 1.20 mg/dL [facility] Sodium 138 135 - 145 mmol/L [facility] Potassium 3.9 3.5 - 5.0 mmol/L [facility] Comment: Please note: ??Patients with WBC >100,000 may have falsely elevated Potassium levels. ??For accurate Potassium quantification in these patients send serum separator tube (gold top) for subsequent determinations. ??Contact the Clinical Chemistry Laboratory if there are any questions. Chloride 102 98 - 107 mmol/L [facility] Carbon Dioxide 26 22 - 31 mmol/L [facility] Anion Gap 10 5 - 15 mmol/L [facility] Calcium 9.7 8.5 - 10.5 mg/dL [facility] Est Glomerular Filtration Rate 60 >=60 mL/min/1. 73 m?? [facility] Comment: This patient's estimated [...] Agency Comment Spec In Lab Mara Serrano FORMING ROLL OPERATOR HEAVY DUTY [place] [address] * IR Chest Tube Placement Right (05/18/2023 [...] EDT) Glucose 95 65 - 199 mg/dL [facility] Comment:Diabetes: >=200 mg/d L plus symptoms Blood Urea Nitrogen 71(H) 8 - 18 mg/dL [facility] Comment:result rechecked-JSJ Creatinine 1.64(H) 0.70 - 1.20 mg/dL [facility] Comment:result rechecked-JSJ Sodium 137 135 - 145 mmol/L [facility] Potassium 3.7 3.5 - 5.0 mmol/L [facility] Comment: Please note: ??Patients with WBC >100,000 may have falsely elevated Potassium levels. ??For accurate Potassium quantification in these patients send serum separator tube (gold top) for subsequent determinations. ??Contact the Clinical Chemistry Laboratory if there are any questions. Chloride 100 98 - 107 mmol/L [facility] Carbon Dioxide 24 22 - 31 mmol/L [facility] Anion Gap 13 5 - 15 mmol/L [facility] Calcium 9.7 8.5 - 10.5 mg/dL [facility] Est Glomerular Filtration Rate 34(L) >=60 mL/min/1. 73 m?? [facility] Comment: This patient's estimated [...] Agency Comment Spec In Lab Mara Serrano FORMING ROLL OPERATOR HEAVY DUTY CHEMISTRY ORDERABL ES [facility] [place] [address] * XR Chest PA & Lateral (Generic) [...] questions please contact the health health care social worker that requested your imaging first. ? Electronically signed by: Ghassan Reyes MD, [facility] ??([phone]), at 05/17/2023 11:46 AM Narrative 05/17/2023 11:46 [...] have questions please contactthe health health care social worker that requested your imaging first. Electronically signed by: Ghassan Reyes MD, [facility]([phone]), at 05/17/2023 11:46 AM Alirio Hudson MD IMG DX ORDERABLES * (ABNORMAL) Comprehensive metabolic panel (non-fasting) (05/17/2023 4:35 AM EDT) Glucose 89 65 - 199 mg/dL [facility] Comment:Diabetes: >=200 mg/d L plus symptoms Blood Urea Nitrogen 97(H) 8 - 18 mg/dL [facility] Creatinine 2.97(H) 0.70 - 1.20 mg/dL [facility] Comment:result rechecked-JSJ Sodium 135 135 - 145 mmol/L [facility] Potassium 4.1 3.5 - 5.0 mmol/L [facility] Comment: Please note: ??Patients with WBC >100,000 may have falsely elevated Potassium levels. ??For accurate Potassium quantification in these patients send serum separator tube (gold top) for subsequent determinations. ??Contact the Clinical Chemistry Laboratory if there are any questions. Chloride 97(L) 98 - 107 mmol/L [facility] Carbon Dioxide 22 22 - 31 mmol/L [facility] Anion Gap 16(H) 5 - 15 mmol/L [facility] Calcium 9.6 8.5 - 10.5 mg/dL [facility] Protein, Total 6.5 6.1 - 8.0 g/dL [facility] Albumin 3.7 3.2 - 5.2 g/dL [facility] Aspartate Aminotransferase 58(H) 0 - 30 unit/L [facility] Alanine Aminotransferase 66(H) 0 - 30 unit/L [facility] Alkaline Phosphatase 86 35 - 105 unit/L [facility] Bilirubin, Total 0.6 0.2 - 1.3 mg/dL [facility] Est Glomerular Filtration Rate 17(L) >=60 mL/min/1. 73 m?? [facility] Comment: This patient's estimated [...] MD CHEMISTRY ORDERABLE S Performing Organization Address City/State/[facility] [[email or web address]] Co de Phone Number [facility] [place] [address] * Potassium (05/16/2023 11:15 PM EDT) Potassium 3.7 3.5 - 5.0 mmol/L [facility] Comment: Please note: ??Patients [...] MD CHEMISTRY ORDERABLE S Performing Organization Address City/[facility]/ZIP Co de Phone Number [facility] [place] [address] * Magnesium (05/16/2023 5:22 PM EDT) Magnesium 0.96 0.69 - 1.07 mmol/L [facility] Blood 05/16/2023 5:22 PM EDT 05/16/2023 5:27 PM EDT Narrative Resulting Agency Comment Spec In Lab Alirio Hudson MD CHEMISTRY ORDERABLE S Performing Organization Address [facility] [[email or web address]] Co de Phone Number [facility] [place] [address] * (ABNORMAL) Basic Metabolic Panel (non-fasting) (05/16/2023 5:22 PM EDT) Glucose 106 65 - 199 mg/dL [facility] Comment:Diabetes: >=200 mg/d L plus symptoms Blood Urea Nitrogen 103(H) 8 - 18 mg/dL [facility] Creatinine 3.91(H) 0.70 - 1.20 mg/dL [facility] Comment:result rechecked-imm Sodium 132(L) 135 - 145 mmol/L [facility] Potassium 3.6 3.5 - 5.0 mmol/L [facility] Comment: Please note: ??Patients with WBC >100,000 may have falsely elevated Potassium levels. ??For accurate Potassium quantification in these patients send serum separator tube (gold top) for subsequent determinations. ??Contact the Clinical Chemistry Laboratory if there are any questions. Chloride 92(L) 98 - 107 mmol/L [facility] Carbon Dioxide 22 22 - 31 mmol/L [facility] Anion Gap 18(H) 5 - 15 mmol/L [facility] Calcium 9.7 8.5 - 10.5 mg/dL [facility] Est Glomerular Filtration Rate 12(L) >=60 mL/min/1. 73 m?? [facility] Comment: This patient's estimated [...] MD CHEMISTRY ORDERABLE S Performing Organization Address [facility] [[email or web address] Co de Phone Number [facility] [place] [address] * (ABNORMAL) Potassium (05/16/2023 11:43 AM EDT) Potassium 3.3(L) 3.5 - 5.0 mmol/L [facility] Comment: Please note: ??Patients [...] MD CHEMISTRY ORDERABLE S Performing Organization Address [facility] [[email or web address]] Co de Phone Number [facility] [place] [address] * (ABNORMAL) Ferritin (05/16/2023 4:41 AM EDT) Ferritin 1,813(H) 30 - 400 ng/mL [facility] Comment: Pediatric reference ranges not verified at [facility], interpret with caution. Reference ranges for females greater than 50 years of age approach values for men, i.e., 30-400 ng/mL. Blood 05/16/2023 4:41 AM EDT 05/16/2023 4:54 AM EDT Narrative Resulting Agency Comment Spec In Lab Kristopher Ayoub MD CHEMISTRY ORDERABLES Performing Organization Address City/[facility]/ZIP Co de Phone Number [facility] [place] [address] * (ABNORMAL) PTH (05/16/2023 4:41 AM EDT) Parathyroid Hormone 120(H) 15 - 65 pg/mL [facility] Blood 05/16/2023 4:41 AM EDT 05/16/2023 4:54 AM EDT Narrative Resulting Agency Comment Spec In Lab Kristopher Ayoub MD CHEMISTRY ORDERABLES Performing Organization Address [facility] [[email or web address]] Co de Phone Number [facility] [place] [address] * Vitamin D, 25-Hydroxy (05/16/2023 4:41 AM EDT) Vitamin D Total 25 OH 33 21 - 100 ng/mL [facility] Vit D Interp Sufficient [facility] Blood 05/16/2023 4:41 AM EDT 05/16/2023 4:54 AM EDT Narrative Resulting Agency Comment Spec In Lab Kristopher Ayoub MD CHEMISTRY ORDERABLES Performing Organization Address City/[facility] [[email or web address]] Co de Phone Number [facility] [place] [address] * (ABNORMAL) Blood Gas Venous ([facility]) (05/16/2023 4:22 AM EDT) pH, Venous 7.41 7.32 - 7.42 [facility] PCO2, Venous 32(L) 41 - 51 mmHg [facility] PO2, Venous 73(H) 25 - 40 mmHg [facility] Bicarbonate, Venous 19.6 mmol/L [facility] Base Excess, Venous -5.1 mmol/L [facility] Hgb Blood Gas 9.7(L) 11.7 - 15.5 g/dL [facility] Oxyhemoglobin, Venous 92.8 % [facility] Carboxyhemoglob in, Venous 0.1 % [facility] Comment: Nonsmokers: 0.5-1.5% COHB Smokers: Variable, but usually less than 10% Toxic: 20-30% COHB Lethal: Greater than 60% COHB Methemoglobin, Venous 0.3 <=1.5 % [facility] Na Whole Blood 130(L) 135 - 145 mmol/L [facility] K Whole Blood 3.7 3.5 - 5.0 mmol/L [facility] Comment: Please note: Patients with WBC >100,000 may have falsely elevated Potassium levels. Contact the Clinical Chemistry Laboratory if there are any questions. ICa Whole Blood 1.15 1.15 - 1.33 mmol/L [facility] Comment: Note: ??Total bilirubin higher than 20 mg/dL may lead to falsely low ionized calcium. CL Whole Blood 95(L) 98 - 107 mmol/L [facility] Gluc Whole Bld 82 65 - 199 mg/dL [facility] Comment:Diabetes: >=200 mg/d L plus symptoms Lactate WB 1.1 0.5 - 2.2 mmol/L [facility] Blood Gas Source Venous [facility] Blood Venous Draw / Unknown 05/16/2023 4:22 AM EDT 05/16/2023 4:31 AM EDT Narrative Resulting Agency Comment Spec In Lab Bonita TOBAR CHEMISTRY ORDERABLES [facility] [place] [address] * (ABNORMAL) Differential, Automated (05/16/2023 4:20 AM EDT) Neutrophil % 84.1 % [facility] Neutrophil Absolute 6.22(H) 1.70 - 6.10 x10(3)/mc L [facility] Lymph % 5.8 % [facility] Lymphocytes Abs 0.4(L) 0.9 - 3.2 x10(3)/mc L [facility] Monocyte % 8.8 % [facility] Monocyte Abs 0.6 0.3 - 0.9 x10(3)/mc L [facility] Eos % 0.4 % [facility] Eosinophils Abs 0.0 0.0 - 0.4 x10(3)/mc L [facility] Basophil % 0.0 % [facility] Baso Absolute 0.0 0.0 - 0.1 x10(3)/mc L [facility] Immature Gran % 0.90 % [facility] Comment: Immature granulocytes(IG's)percentage and absolute count will include metamyelocytes, myelocytes, and promyelocytes. Blood smears from CBCs yielding IG's will be scanned manually for concordance. If this scan disagrees with the automated IG or if promyelocytes are noted, a manual differential will be performed. Immature Gran Absolute 0.07(H) 0.00 - 0.04 x10(3)/mc L [facility] Blood 05/16/2023 4:20 AM EDT 05/16/2023 4:29 AM EDT Narrative Resulting Agency Comment Spec In Lab James Agustin MD HEMATOLOGY ORDER JODIE Performing Organization Address City/State/[facility] [[email or web address]] Co de Phone Number [facility] [place] [address] * (ABNORMAL) Hemogram (05/16/2023 4:20 AM EDT) White Blood Cell 7.4 4.0 - 9.5 x10(3)/mc L [facility] Red Blood Cell 2.40(L) 4.00 - 5.21 x10(6)/mc L [facility] Hemoglobin 7.8(L) 11.7 - 15.5 g/dL [facility] Hematocrit 22.5(L) 35.7 - 45.8 % [facility] Mean Cell Volume 93.8 82.6 - 94.4 fL [facility] Mean Cell Hemoglobin 32.5(H) 27.1 - 32.0 pg [facility] Mean Cell Hemoglobin Concentration 34.7 31.7 - 35.0 g/dL [facility] Platelet 120(L) 145 - 357 x10(3)/mc L [facility] RDW Standard Deviation 42.9 37.0 - 46.0 fL [facility] RDW coefficient of variation 12.9 11.5 - 14.1 % [facility] Mean Platelet Volume 11.3 7.6 - 12.9 fL [facility] NRBC% auto 0.7 % [facility] NRBC Absolute 0.050(H) 0.000 - 0.000 x10(3)/mc L [facility] Blood 05/16/2023 4:20 AM EDT 05/16/2023 4:29 AM EDT Narrative Resulting Agency Comment Spec In Lab James Agustin MD HEMATOLOGY ORDER JODIE [facility] [place] [address] * (ABNORMAL) Basic Metabolic Panel (non-fasting) (05/16/2023 4:20 AM EDT) Glucose 89 65 - 199 mg/dL [facility] Comment:Diabetes: >=200 mg/d L plus symptoms Blood Urea Nitrogen 108(H) 8 - 18 mg/dL [facility] Creatinine 4.74(H) 0.70 - 1.20 mg/dL [facility] Comment:result rechecked-OLIVA Sodium 132(L) 135 - 145 mmol/L [facility] Potassium 3.9 3.5 - 5.0 mmol/L [facility] Comment: Please note: ??Patients with WBC >100,000 may have falsely elevated Potassium levels. ??For accurate Potassium quantification in these patients send serum separator tube (gold top) for subsequent determinations. ??Contact the Clinical Chemistry Laboratory if there are any questions. Chloride 95(L) 98 - 107 mmol/L [facility] Carbon Dioxide 18(L) 22 - 31 mmol/L [facility] Anion Gap 19(H) 5 - 15 mmol/L [facility] Calcium 9.2 8.5 - 10.5 mg/dL [facility] Est Glomerular Filtration Rate 10(L) >=60 mL/min/1. 73 m?? [facility] Comment: This patient's estimated [...] MD CHEMISTRY ORDERABLE S Performing Organization Address [facility] [[email or web address]] Co de Phone Number [facility] [place] [address] * (ABNORMAL) Iron and TIBC (05/16/2023 4:20 AM EDT) Iron 31 30 - 150 mcg/dL [facility] TIBC 259 250 - 450 mcg/dL [facility] Iron Saturation 12(L) 20 - 50 % [facility] Blood 05/16/2023 4:20 AM EDT 05/16/2023 4:29 AM EDT Narrative Resulting Agency Comment Spec In Lab Kristopher Ayoub MD CHEMISTRY ORDERABLES Performing Organization Address [facility] [[email or web address]] Co de Phone Number [facility] [place] [address] * (ABNORMAL) Basic Metabolic Panel (non-fasting) (05/15/2023 12:50 AM EDT) Glucose 101 65 - 199 mg/dL [facility] Comment:Diabetes: >=200 mg/d L plus symptoms Blood Urea Nitrogen 109(H) 8 - 18 mg/dL [facility] Creatinine 5.62(H) 0.70 - 1.20 mg/dL [facility] Comment:result rechecked-KS Sodium 131(L) 135 - 145 mmol/L [facility] Comment:result rechecked-KS Potassium 3.7 3.5 - 5.0 mmol/L [facility] Comment: result rechecked-KS Please note: ??Patients with WBC >100,000 may have falsely elevated Potassium levels. ??For accurate Potassium quantification in these patients send serum separator tube (gold top) for subsequent determinations. ??Contact the Clinical Chemistry Laboratory if there are any questions. Chloride 92(L) 98 - 107 mmol/L [facility] [facility] Comment:result rechecked-KS Carbon Dioxide 18(L) 22 - 31 mmol/L [facility] Comment:result rechecked-KS Anion Gap 21(H) 5 - 15 mmol/L [facility] Calcium 8.9 8.5 - 10.5 mg/dL [facility] Est Glomerular Filtration Rate 8(L) >=60 mL/min/1. 73 m?? [facility] Comment: This patient's estimated [...] MD CHEMISTRY ORDERABLE S Performing Organization Address City/State/[facility] [[email or web address]] Co de Phone Number [facility] [place] [address] * (ABNORMAL) Hemogram (05/15/2023 12:50 AM EDT) White Blood Cell 9.1 4.0 - 9.5 x10(3)/mc L [facility] Red Blood Cell 2.19(L) 4.00 - 5.21 x10(6)/mc L [facility] Hemoglobin 7.2(L) 11.7 - 15.5 g/dL [facility] Hematocrit 20.6(L) 35.7 - 45.8 % [facility] Mean Cell Volume 94.1 82.6 - 94.4 fL [facility] Mean Cell Hemoglobin 32.9(H) 27.1 - 32.0 pg [facility] Mean Cell Hemoglobin Concentration 35.0 31.7 - 35.0 g/dL [facility] Platelet 109(L) 145 - 357 x10(3)/mc L [facility] RDW Standard Deviation 43.6 37.0 - 46.0 fL [facility] RDW coefficient of variation 12.9 11.5 - 14.1 % [facility] Mean Platelet Volume 10.4 7.6 - 12.9 fL [facility] NRBC% auto 2.1 % [facility] NRBC Absolute 0.190(H) 0.000 - 0.000 x10(3)/mc L [facility] Blood 05/15/2023 12:5 0 AM EDT 05/15/2023 12:52 AM EDT Narrative Resulting Agency Comment Spec In Lab Alirio Hudson MD HEMATOLOGY ORDERABL ES Performing Organization Address City/State/[facility] [[email or web address]] Co de Phone Number [facility] [place] [address] * (ABNORMAL) BLOOD GAS 2 VENOUS (05/15/2023 12:49 AM EDT) pH, Venous 7.33 7.32 - 7.42 [facility] PCO2, Venous 37(L) 41 - 51 mmHg [facility] PO2, Venous 34 25 - 40 mmHg [facility] Bicarbonate, Venous 19.1 mmol/L [facility] Base Excess, Venous -6.8 mmol/L [facility] Hgb Blood Gas 10.8(L) 11.7 - 15.5 g/dL [facility] Oxyhemoglobin, Venous 58.1 % [facility] Carboxyhemoglob in, Venous 0.3 % [facility] Comment: Nonsmokers: 0.5-1.5% COHB Smokers: Variable, but usually less than 10% Toxic: 20-30% COHB Lethal: Greater than 60% COHB Methemoglobin, Venous 0.6 <=1.5 % [facility] Na Whole Blood 136 135 - 145 mmol/L [facility] K Whole Blood 3.7 3.5 - 5.0 mmol/L [facility] Comment: Please note: Patients with WBC >100,000 may have falsely elevated Potassium levels. Contact the Clinical Chemistry Laboratory if there are any questions. ICa Whole Blood 1.12(L) 1.15 - 1.33 mmol/L [facility] Comment: Note: ??Total bilirubin higher than 20 mg/dL may lead to falsely low ionized calcium. CL Whole Blood 95(L) 98 - 107 mmol/L [facility] Gluc Whole Bld 101 65 - 199 mg/dL [facility] Comment:Diabetes: >=200 mg/d L plus symptoms Lactate WB 1.3 0.5 - 2.2 mmol/L [facility] Flow, Mike 1.0 LPM [facility] Blood Gas Source Venous [facility] Blood 05/15/2023 12:4 9 AM EDT 05/15/2023 12:49 AM EDT Alirio Hudson MD POINT OF CARE TEST ORDERABLES Performing Organization Address City/State/[facility] [[email or web address]] Co de Phone Number [facility] [place] [address] * US Retroperitoneal Complete (05/14/2023 3:53 PM [...] PM Electronically signed by: Hayden Robledo MD, [facility] ([phone]), at 05/14/2023 4:32 PM Thank you for letting us participate in the care of this patient. If you are a health care provider and have any questions regarding this report, please contact the number above. For patients who have questions, please contact the health health care social worker that requested your imaging first. ? Hayden Robledo, Staff Physician Electronically Signed Final Report ?? 05/14/2023 04:39 pm Narrative 05/14/2023 4:39 PM EDT Renal ? (Signed Final 05/14/2023 04:39 pm) PATIENT INFO: ID #: ? [id number] ?: ??55 (67 yrs)(F) Name: ? PURNIMA THACKER ?Visit Date: 05/14/2023 03:44 pm PERFORMED BY: Attending: ?Meena CULP, Hayden Stafford Resident: ? Nell CULP, Anand August Performed By: ? Consuelo Tello RDMS Referred By: ?ALIRIO Powell BECCA Location: ? [place] SERVICE(S) PROVIDED: URETRO - Retroperitoneal Complete - [id number] ? [id number] INDICATIONS: EVANS COMPARISON: CT: Abdomen/Pelvis 05/11/23 RIGHT [...] 05/14/2023 04:39 pm) PATIENT INFO: ID #: [id number] : 55 (67 yrs)(F) Name: PURNIMA THACKER Visit Date: 05/14/2023 03:44 pm PERFORMED BY: Attending: Hayden Robledo MD Resident: Anand Camejo MD Performed By: Consuelo Tello RDMS Referred By: ALIRIO HUDSON Location: [place] SERVICE(S) PROVIDED: URETRO - Retroperitoneal Complete - [id number] INDICATIONS: EVANS COMPARISON: CT: Abdomen/Pelvis 05/11/23 RIGHT [...] PM Electronically signed by: Hayden Robledo MD, [facility] ([phone]), at 05/14/2023 4:32 PM Thank you for letting us participate in the care of this patient. If you are a health care provider and have any questions regarding this report, please contact the number above. For patients who have questions, please contact the health health care social worker that requested your imaging first. Hayden Robledo, Staff Physician Electronically Signed Final Report 05/14/2023 04:39 pm Alirio Hudson MD IMG US GEN ORDERABL ES * CK (05/14/2023 3:17 PM EDT) Pathologist [facility] Creatine Kinase 123 0 - 160 unit/L [facility] Blood 05/14/2023 3:17 PM EDT 05/14/2023 3:31 PM EDT Narrative Resulting Agency Comment Spec In Lab Alirio Hudson MD CHEMISTRY ORDERABLE S Performing Organization Address City/[facility]/ZIP Co de Phone Number [facility] [place] [address] * (ABNORMAL) Uric acid (05/14/2023 3:17 PM EDT) [facility] Uric Acid 14.9(H) 2.5 - 6.5 mg/dL [facility] Blood 05/14/2023 3:17 PM EDT 05/14/2023 3:31 PM EDT Narrative Resulting Agency Comment Spec In Lab Alirio Hudson MD CHEMISTRY ORDERABLE S Performing Organization Address [facility] [[email or web address]] Co de Phone Number [facility] [place] [address] * (ABNORMAL) Osmolality (05/14/2023 3:17 PM EDT) Pathologist [facility] Osmolality 311(H) 275 - 295 mOsm/kg [facility] Blood 05/14/2023 3:17 PM EDT 05/14/2023 3:31 PM EDT Narrative Resulting Agency Comment Spec In Lab lAirio Hudson MD CHEMISTRY ORDERABLE S Performing Organization Address [facility] [[email or web address]] Co de Phone Number [facility] [place] [address] * (ABNORMAL) Differential, Automated (05/14/2023 1:10 AM EDT) Neutrophil % 87.2 % [facility] Neutrophil Absolute 9.74(H) 1.70 - 6.10 x10(3)/mc L [facility] Lymph % 3.9 % [facility] Lymphocytes Abs 0.4(L) 0.9 - 3.2 x10(3)/mc L [facility] Monocyte % 7.9 % [facility] Monocyte Abs 0.9 0.3 - 0.9 x10(3)/ L [facility] Eos % 0.0 % [facility] Eosinophils Abs 0.0 0.0 - 0.4 x10(3)/ L [facility] Basophil % 0.1 % [facility] Baso Absolute 0.0 0.0 - 0.1 x10(3)/ L [facility] Immature Gran % 0.90 % [facility] Comment: Immature granulocytes(IG's)percentage and absolute count will include metamyelocytes, myelocytes, and promyelocytes. Blood smears from CBCs yielding IG's will be scanned manually for concordance. If this scan disagrees with the automated IG or if promyelocytes are noted, a manual differential will be performed. Immature Gran Absolute 0.10(H) 0.00 - 0.04 x10(3)/ L [facility] Blood 05/14/2023 1:10 AM EDT 05/14/2023 1:24 AM EDT Narrative Resulting Agency Comment Spec In Lab Bonita TOBAR HEMATOLOGY ORDERABLE S Performing Organization Address City/State/[facility] [[email or web address]] Co de Phone Number [facility] [place] [address] * (ABNORMAL) Hemogram (05/14/2023 1:10 AM EDT) White Blood Cell 11.2(H) 4.0 - 9.5 x10(3)/mc L [facility] Red Blood Cell 2.19(L) 4.00 - 5.21 x10(6)/ L [facility] Hemoglobin 7.2(L) 11.7 - 15.5 g/dL [facility] Hematocrit 20.3(L) 35.7 - 45.8 % [facility] Mean Cell Volume 92.7 82.6 - 94.4 fL [facility] Mean Cell Hemoglobin 32.9(H) 27.1 - 32.0 pg [facility] Mean Cell Hemoglobin Concentration 35.5(H) 31.7 - 35.0 g/dL [facility] Platelet 112(L) 145 - 357 x10(3)/mc L [facility] RDW Standard Deviation 41.4 37.0 - 46.0 fL [facility] RDW coefficient of variation 12.5 11.5 - 14.1 % [facility] Mean Platelet Volume 10.4 7.6 - 12.9 fL [facility] NRBC% auto 1.5 % [facility] NRBC Absolute 0.170(H) 0.000 - 0.000 x10(3)/mc L [facility] Blood 05/14/2023 1:10 AM EDT 05/14/2023 1:24 AM EDT Narrative Resulting Agency Comment Spec In Lab Bonita TOBAR HEMATOLOGY ORDERABLE S Performing Organization Address City/State/[facility] [[email or web address]] Co de Phone Number [facility] [place] [address] * (ABNORMAL) Comprehensive metabolic panel (non-fasting) (05/14/2023 1:10 AM EDT) Glucose 120 65 - 199 mg/dL [facility] Comment:Diabetes: >=200 mg/d L plus symptoms Blood Urea Nitrogen 98(H) 8 - 18 mg/dL [facility] Creatinine 4.80(H) 0.70 - 1.20 mg/dL [facility] Comment:result rechecked-ssc Sodium 132(L) 135 - 145 mmol/L [facility] Potassium 4.1 3.5 - 5.0 mmol/L [facility] Comment: Please note: ??Patients with WBC >100,000 may have falsely elevated Potassium levels. ??For accurate Potassium quantification in these patients send serum separator tube (gold top) for subsequent determinations. ??Contact the Clinical Chemistry Laboratory if there are any questions. Chloride 94(L) 98 - 107 mmol/L [facility] Carbon Dioxide 18(L) 22 - 31 mmol/L [facility] Anion Gap 20(H) 5 - 15 mmol/L [facility] Calcium 8.5 8.5 - 10.5 mg/dL [facility] Protein, Total 5.8(L) 6.1 - 8.0 g/dL [facility] Albumin 3.6 3.2 - 5.2 g/dL [facility] Aspartate Aminotransferase 319(H) 0 - 30 unit/L [facility] Alanine Aminotransferase 437(H) 0 - 30 unit/L [facility] Alkaline Phosphatase 86 35 - 105 unit/L [facility] Bilirubin, Total 0.4 0.2 - 1.3 mg/dL [facility] Est Glomerular Filtration Rate 9(L) >=60 mL/min/1. 73 m?? [facility] Comment: This patient's estimated [...] MD CHEMISTRY ORDERABLE S Performing Organization Address City/[facility] [[email or web address]] [place] [address] * APTT (05/13/2023 10:15 AM EDT) Partial Thromboplastin Time 27 25 - 37 sec [facility] Comment: The PTT is NOT appropriate for heparin monitoring. Use the Anti-Xa level for heparin monitoring (HEP UFH) or LMWH monitoring (HEP LMW). A PTT less than 37 seconds generally indicates adequate hemostasis. Blood 05/13/2023 10:1 5 AM EDT 05/13/2023 10:46 AM EDT Narrative Resulting Agency Comment Spec In Lab Alirio Hudson MD HEMATOLOGY ORDERABL ES Performing Organization Address City/[facility]/ZIP Co de Phone Number [facility] [place] [address] * (ABNORMAL) Prothrombin Time (05/13/2023 10:15 AM EDT) Prothrombin Time 14.6(H) 9.4 - 12.5 sec [facility] International Normalization Ratio 1.3 [facility] Comment: An INR <2.0 [...] Lab Alirio Hudson MD HEMATOLOGY ORDERABL ES [facility] [place] [address] * EKG 12 Lead (05/13/2023 9:22 AM EDT) Ventricular rate 92 BPM MUSE SYSTEM Atrial Rate 92 BPM MUSE SYSTEM P-R Interval 140 ms MUSE SYSTEM QRS Duration 104 ms MUSE SYSTEM Q-T Interval 384 ms MUSE SYSTEM QTC Calculated (Bezet) 474 ms MUSE SYSTEM Calculated P [place] 33 degrees MUSE SYSTEM Calculated R [place] 41 degrees MUSE SYSTEM Calculated T [place] -35 degrees MUSE SYSTEM INTERPRETATION Sinus rhythm with frequent Premature ventricular complexes Septal infarct , age undetermined ST & T wave abnormality, consider lateral ischemia Abnormal ECG When compared with ECG of 12-MAY-2023 10:10, Premature ventricular complexes are now Present I personally reviewed the tracing and edited the fellows interpretation Confirmed by fellow MD Anitha, Carissa ([id number]) on 05/13/2023 3:25:30 PM Confirmed by Maxx Best ([id number]) on 05/13/2023 8:30:56 PM MUSE SYSTEM 05/13/2023 9:22 AM EDT 05/13/2023 8:30 PM EDT Alirio Hudson MD ECG ORDERABLES MUSE SYSTEM * (ABNORMAL) Differential, Automated (05/13/2023 1:15 AM EDT) Neutrophil % 88.1 % [facility] Neutrophil Absolute 7.62(H) 1.70 - 6.10 x10(3)/mc L [facility] Lymph % 3.1 % [facility] Lymphocytes Abs 0.3(L) 0.9 - 3.2 x10(3)/mc L [facility] Monocyte % 7.9 % [facility] Monocyte Abs 0.7 0.3 - 0.9 x10(3)/mc L [facility] Eos % 0.0 % [facility] Eosinophils Abs 0.0 0.0 - 0.4 x10(3)/mc L [facility] Basophil % 0.1 % [facility] Baso Absolute 0.0 0.0 - 0.1 x10(3)/mc L [facility] Immature Gran % 0.80 % [facility] Comment: Immature granulocytes(IG's)percentage and absolute count will include metamyelocytes, myelocytes, and promyelocytes. Blood smears from CBCs yielding IG's will be scanned manually for concordance. If this scan disagrees with the automated IG or if promyelocytes are noted, a manual differential will be performed. Immature Gran Absolute 0.07(H) 0.00 - 0.04 x10(3)/mc L [facility] Blood 05/13/2023 1:15 AM EDT 05/13/2023 1:29 AM EDT Narrative Resulting Agency Comment Spec In Lab Lorri TOBAR HEMATOLOGY ORDERABLE S [facility] [place] [address] * (ABNORMAL) Hemogram (05/13/2023 1:15 AM EDT) White Blood Cell 8.6 4.0 - 9.5 x10(3)/mc L [facility] Red Blood Cell 2.37(L) 4.00 - 5.21 x10(6)/mc L [facility] Hemoglobin 7.8(L) 11.7 - 15.5 g/dL [facility] Hematocrit 22.2(L) 35.7 - 45.8 % [facility] Mean Cell Volume 93.7 82.6 - 94.4 fL [facility] Mean Cell Hemoglobin 32.9(H) 27.1 - 32.0 pg [facility] Mean Cell Hemoglobin Concentration 35.1(H) 31.7 - 35.0 g/dL [facility] Platelet 130(L) 145 - 357 x10(3)/mc L [facility] RDW Standard Deviation 41.7 37.0 - 46.0 fL [facility] RDW coefficient of variation 12.5 11.5 - 14.1 % [facility] Mean Platelet Volume 10.2 7.6 - 12.9 fL [facility] NRBC% auto 0.5 % [facility] NRBC Absolute 0.040(H) 0.000 - 0.000 x10(3)/mc L [facility] Blood 05/13/2023 1:15 AM EDT 05/13/2023 1:29 AM EDT Narrative Resulting Agency Comment Spec In Lab Lorri TOBAR HEMATOLOGY ORDERABLE S [facility] [place] [address] * (ABNORMAL) Hepatic Function Panel (05/13/2023 1:15 AM EDT) Protein, Total 5.5(L) 6.1 - 8.0 g/dL [facility] Albumin 3.0(L) 3.2 - 5.2 g/dL [facility] Aspartate Aminotransferase 792(H) 0 - 30 unit/L [facility] Alanine Aminotransferase 903(H) 0 - 30 unit/L [facility] Alkaline Phosphatase 85 35 - 105 unit/L [facility] Bilirubin, Total 0.5 0.2 - 1.3 mg/dL [facility] Bilirubin, Direct 0.3 0.0 - 0.3 mg/dL [facility] Blood 05/13/2023 1:15 AM EDT 05/13/2023 1:29 AM EDT Narrative Resulting Agency Comment Spec In Lab Alirio Hudson MD CHEMISTRY ORDERABLE S [facility] [place] [address] * (ABNORMAL) Basic Metabolic Panel (non-fasting) (05/13/2023 1:15 AM EDT) Glucose 107 65 - 199 mg/dL [facility] Comment:Diabetes: >=200 mg/d L plus symptoms Blood Urea Nitrogen 82(H) 8 - 18 mg/dL [facility] Creatinine 3.15(H) 0.70 - 1.20 mg/dL [facility] Comment:result rechecked-OG Sodium 132(L) 135 - 145 mmol/L [facility] Potassium 3.8 3.5 - 5.0 mmol/L [facility] Comment: Please note: ??Patients with WBC >100,000 may have falsely elevated Potassium levels. ??For accurate Potassium quantification in these patients send serum separator tube (gold top) for subsequent determinations. ??Contact the Clinical Chemistry Laboratory if there are any questions. Chloride 95(L) 98 - 107 mmol/L [facility] Carbon Dioxide 20(L) 22 - 31 mmol/L [facility] Anion Gap 17(H) 5 - 15 mmol/L [facility] Calcium 8.3(L) 8.5 - 10.5 mg/dL [facility] Est Glomerular Filtration Rate 16(L) >=60 mL/min/1. 73 m?? [facility] Comment: This patient's estimated [...] Lab Alirio Hudson MD CHEMISTRY ORDERABLE S [facility] [place] [address] * (ABNORMAL) BLOOD GAS 2 ARTERIAL (05/12/2023 3:57 PM EDT) pH, Arterial 7.39 7.35 - 7.45 [facility] PCO2, Arterial 33(L) 35 - 45 mmHg [facility] PO2, Arterial 101 85 - 104 mmHg [facility] Bicarbonate, Arterial 19.5(L) 20.0 - 26.0 mmol/L [facility] Base Excess, Arterial -5.5(L) -3.0 - 3.0 mmol/L [facility] Hgb Blood Gas 9.8(L) 11.7 - 15.5 g/dL [facility] Oxyhemoglobin, Arterial 95.2 94.0 - 97.0 % [facility] Carboxyhemoglob in, Arterial 0.2 % [facility] Comment: Nonsmokers: 0.5-1.5% COHB Smokers: Variable, but usually less than 10% Toxic: 20-30% COHB Lethal: Greater than 60% COHB Methemoglobin, Arterial 0.8 <=1.5 % [facility] Na Whole Blood 129(L) 135 - 145 mmol/L [facility] K Whole Blood 3.8 3.5 - 5.0 mmol/L [facility] Comment: Please note: Patients with WBC >100,000 may have falsely elevated Potassium levels. Contact the Clinical Chemistry Laboratory if there are any questions. ICa Whole Blood 1.05(L) 1.15 - 1.33 mmol/L [facility] Comment: Note: ??Total bilirubin higher than 20 mg/dL may lead to falsely low ionized calcium. CL Whole Blood 96(L) 98 - 107 mmol/L [facility] Gluc Whole Bld 178 65 - 199 mg/dL [facility] Comment:Diabetes: >=200 mg/d L plus symptoms. Lactate WB 1.5 0.5 - 2.2 mmol/L [facility] FIO2 Art 40 % [facility] PF Ratio Art 252 [facility] Blood 05/12/2023 3:57 PM EDT 05/12/2023 3:57 PM EDT Alirio Hudson MD POINT OF CARE TEST ORDERABLES Performing Organization Address [facility] [[email or web address]] Co de Phone Number [facility] [place] [address] * (ABNORMAL) Coox2 (05/12/2023 2:25 PM EDT) pO2, Coox 37 mmHg [facility] Hgb Blood Gas 9.5(L) 11.7 - 15.5 g/dL [facility] Oxyhemoglobin, Coox 59.9 % [facility] Carboxyhemoglo bin, Coox 0.3 % [facility] Comment: Nonsmokers: 0.5-1.5% COHB Smokers: Variable, but usually less than 10% Toxic: 20-30% COHB Lethal: Greater than 60% COHB Methemoglobin, Coox 0.7 <=1.5 % [facility] Source Coox Mixed Venous [facility] Blood 05/12/2023 2:25 PM EDT 05/12/2023 2:25 PM EDT Alirio Hudson MD POINT OF CARE TEST ORDERABLES Performing Organization Address City/[facility] [[email or web address]] Co de Phone Number [facility] [place] [address] * (ABNORMAL) BLOOD GAS 2 ARTERIAL (05/12/2023 2:23 PM EDT) pH, Arterial 7.37 7.35 - 7.45 [facility] PCO2, Arterial 36 35 - 45 mmHg [facility] PO2, Arterial 102 85 - 104 mmHg [facility] Bicarbonate, Arterial 20.4 20.0 - 26.0 mmol/L [facility] Base Excess, Arterial -4.8(L) -3.0 - 3.0 mmol/L [facility] Hgb Blood Gas 12.7 11.7 - 15.5 g/dL [facility] Oxyhemoglobin, Arterial 95.4 94.0 - 97.0 % [facility] Carboxyhemoglob in, Arterial 0.3 % [facility] Comment: Nonsmokers: 0.5-1.5% COHB Smokers: Variable, but usually less than 10% Toxic: 20-30% COHB Lethal: Greater than 60% COHB Methemoglobin, Arterial 0.7 <=1.5 % [facility] Na Whole Blood 129(L) 135 - 145 mmol/L [facility] K Whole Blood 3.7 3.5 - 5.0 mmol/L [facility] Comment: Please note: Patients with WBC >100,000 may have falsely elevated Potassium levels. Contact the Clinical Chemistry Laboratory if there are any questions. ICa Whole Blood 1.05(L) 1.15 - 1.33 mmol/L [facility] Comment: Note: ??Total bilirubin higher than 20 mg/dL may lead to falsely low ionized calcium. CL Whole Blood 95(L) 98 - 107 mmol/L [facility] Gluc Whole Bld 168 65 - 199 mg/dL [facility] Comment:Diabetes: >=200 mg/d L plus symptoms. Lactate WB 1.8 0.5 - 2.2 mmol/L [facility] FIO2 Art 40 % [facility] PF Ratio Art 255 [facility] Blood 05/12/2023 2:23 PM EDT 05/12/2023 2:23 PM EDT Alirio Hudson MD POINT OF CARE TEST ORDERABLES Performing Organization Address City/State/[facility] [[email or web address]] Co de Phone Number [facility] [place] [address] * (ABNORMAL) Troponin (05/12/2023 2:05 PM EDT) Troponin-T, High Sensitivity 1,022(H) <=14 ng/L [facility] Comment: This patient's troponin [...] value can be found in the [facility] Test Catalog Troponin - [facility] Test Catalog Reference: Fourth [place] Definition of Myocardial Infarction. Journal of the [place] [employer] 2018;72:8468-1946 Blood 05/12/2023 2:05 PM EDT 05/12/2023 2:14 PM EDT Narrative Resulting Agency Comment Spec In Lab Alirio Hudson MD CHEMISTRY ORDERABLE S Performing Organization Address [facility] [[email or web address]] Co de Phone Number [facility] [place] [address] * (ABNORMAL) Hemoglobin (05/12/2023 2:05 PM EDT) Hemoglobin 8.5(L) 11.7 - 15.5 g/dL [facility] Blood 05/12/2023 2:05 PM EDT 05/12/2023 2:14 PM EDT Narrative Resulting Agency Comment Spec In Lab Alirio Hudson MD HEMATOLOGY ORDERABL ES Performing Organization Address [facility] [[email or web address]] Co de Phone Number [facility] [place] [address] * Potassium (05/12/2023 2:05 PM EDT) Potassium 3.9 3.5 - 5.0 mmol/L [facility] Comment: Please note: ??Patients [...] MD CHEMISTRY ORDERABLE S Performing Organization Address City/State/[facility] [[email or web address]] Co de Phone Number [facility] [place] [address] * (ABNORMAL) BLOOD GAS 2 ARTERIAL (05/12/2023 11:05 AM EDT) pH, Arterial 7.34(L) 7.35 - 7.45 [facility] PCO2, Arterial 42 35 - 45 mmHg [facility] PO2, Arterial 73(L) 85 - 104 mmHg [facility] Bicarbonate, Arterial 22.1 20.0 - 26.0 mmol/L [facility] Base Excess, Arterial -3.6(L) -3.0 - 3.0 mmol/L [facility] Hgb Blood Gas 9.3(L) 11.7 - 15.5 g/dL [facility] Oxyhemoglobin, Arterial 89.3(L) 94.0 - 97.0 % [facility] Carboxyhemoglob in, Arterial 0.2 % [facility] Comment: Nonsmokers: 0.5-1.5% COHB Smokers: Variable, but usually less than 10% Toxic: 20-30% COHB Lethal: Greater than 60% COHB Methemoglobin, Arterial 0.9 <=1.5 % [facility] Na Whole Blood 131(L) 135 - 145 mmol/L [facility] K Whole Blood 3.8 3.5 - 5.0 mmol/L [facility] Comment: Please note: Patients with WBC >100,000 may have falsely elevated Potassium levels. Contact the Clinical Chemistry Laboratory if there are any questions. ICa Whole Blood 1.04(L) 1.15 - 1.33 mmol/L [facility] Comment: Note: ??Total bilirubin higher than 20 mg/dL may lead to falsely low ionized calcium. CL Whole Blood 96(L) 98 - 107 mmol/L [facility] Gluc Whole Bld 152 65 - 199 mg/dL [facility] Comment:Diabetes: >=200 mg/d L plus symptoms. Lactate WB 2.8(H) 0.5 - 2.2 mmol/L [facility] FIO2 Art 40 % [facility] PF Ratio Art 182 [facility] Blood 05/12/2023 11:0 5 AM EDT 05/12/2023 11:05 AM EDT Alirio Hudson MD POINT OF CARE TEST ORDERABLES [facility] [address] [address] * (ABNORMAL) BLOOD GAS 2 ARTERIAL (05/12/2023 10:14 AM EDT) pH, Arterial 7.18(Criti gabrielle) 7.35 - 7.45 [facility] Comment:Noted by biomedical instrument technician. PCO2, Arterial 45 35 - 45 mmHg [facility] PO2, Arterial 186(H) 85 - 104 mmHg [facility] Bicarbonate, Arterial 16.2(L) 20.0 - 26.0 mmol/L [facility] Base Excess, Arterial -12.2(L) -3.0 - 3.0 mmol/L [facility] Hgb Blood Gas 10.0(L) 11.7 - 15.5 g/dL [facility] Oxyhemoglobin, Arterial 97.0 94.0 - 97.0 % [facility] Carboxyhemoglob in, Arterial 0.2 % [facility] Comment: Nonsmokers: 0.5-1.5% COHB Smokers: Variable, but usually less than 10% Toxic: 20-30% COHB Lethal: Greater than 60% COHB Methemoglobin, Arterial 0.9 <=1.5 % [facility] Na Whole Blood 129(L) 135 - 145 mmol/L [facility] K Whole Blood 3.6 3.5 - 5.0 mmol/L [facility] Comment: Please note: Patients with WBC >100,000 may have falsely elevated Potassium levels. Contact the Clinical Chemistry Laboratory if there are any questions. ICa Whole Blood 1.10(L) 1.15 - 1.33 mmol/L [facility] Comment: Note: ??Total bilirubin higher than 20 mg/dL may lead to falsely low ionized calcium. CL Whole Blood 97(L) 98 - 107 mmol/L [facility] Gluc Whole Bld 161 65 - 199 mg/dL [facility] Comment:Diabetes: >=200 mg/d L plus symptoms. Lactate WB 3.3(H) 0.5 - 2.2 mmol/L [facility] FIO2 Art 100 % [facility] PF Ratio Art 186 [facility] Blood 05/12/2023 10:1 4 AM EDT 05/12/2023 10:14 AM EDT Alirio Hudson MD POINT OF CARE TEST ORDERABLES Performing Organization Address City/[facility] [[email or web address]] Co de Phone Number [facility] [place] [address] * EKG 12 Lead (05/12/2023 10:10 AM EDT) Ventricular rate 116 BPM MUSE SYSTEM Atrial Rate 116 BPM MUSE SYSTEM P-R Interval 158 ms MUSE SYSTEM QRS Duration 114 ms MUSE SYSTEM Q-T Interval 348 ms MUSE SYSTEM QTC Calculated (Bezet) 483 ms MUSE SYSTEM Calculated P [place] 37 degrees MUSE SYSTEM Calculated R [place] 31 degrees MUSE SYSTEM Calculated T [place] -138 degrees MUSE SYSTEM INTERPRETATION Sinus tachycardia [...] interpretation Confirmed by fellow MD Anuja, Jim ([id number]) on 05/12/2023 1:04:20 PM Confirmed by MD Villareal Danette ([id number]) on 05/12/2023 9:28:34 PM MUSE SYSTEM 05/12/2023 [...] questions please contact the health health care social worker that requested your imaging first. ? Electronically signed by: Chyna Johnson MD, [facility] ??([phone]), at 05/12/2023 10:08 AM Narrative 05/12/2023 10:08 AM EDT EXAMINATION: XR CHEST ONE VIEW CLINICAL HISTORY: Post TAVR TECHNIQUE: 1 view of the chest COMPARISON: Chest radiograph from earlier today FINDINGS: Interval placement of endotracheal tube with tip terminating 2 cm above the shira. Interval placement of enteric tube projecting along the expected course of the esophagus and outside the ztoxt-wp-kwlz. Interval retraction of right IJ approach pulmonary [...] expected course ofthe esophagus and outside the gsjlc-ot-lmyp. Interval retraction of right IJ approach pulmonary [...] have questions please contactthe health health care social worker that requested your imaging first. Electronically signed by: Chyna Johnson MD, [facility]([phone]), at 05/12/2023 10:08 AM Alirio Hudson MD IMG DX ORDERABLES * ECHO LMTD W/O CONTRAST W LMTD SPEC DOPP COLOR DOPP (05/12/2023 9:23 AM EDT) EF 20 HEART[facility] SYSTEM Anatomical Region Laterality Modality Cardiac Other 05/12/2023 7:33 AM EDT Narrative 05/12/2023 10:18 AM EDT ? Echocardiogram Report Name: PURNIMA THACKER ?Study Date: 05/12/2023 07:33 AMBP: 96/63 mmHg ? Patient Location: [place] CA06 A : 1955 ? Height: 154 cm ? Account: [id number] Age: 67 yrs ? Weight: 75 kg Gender: Female ?BSA: 1.7 m2 Ordering Physician: RADHA HOLLINS Referring Physician: RADHA HOLLINS Performed By: Dilma Bee RDCS Reason For Study: Guidance for TAVR procedure Exam Location: [facility]. Interpretation Summary PRE TAVR: There is [...] mL/m2. POST TAVR: Normal function of the ezdsm-en-xlbzj prosthesis. See below for hemodynamic parameters. Slight improvement in left and right ventricular systolic function. LVEF now 20-25%. No pericardial effusion. See report for additional findings. Procedure Limited - 90750. Doppler - 50189. Color Doppler - 15532. Left Ventricle Left ventricle is of normal [...] Date: 307:33 AMBP: 96/63 mmHg Patient Location: [address] : 1955 Height: 154 cm Account: [id number] Age: 67 yrs Weight: 75 kg Gender: Female BSA: 1.7 m2 Ordering Physician: RADHA HOLLINS Referring Physician: RADHA HOLLINS Performed By: Dilma Bee RDCS Reason For Study: Guidance for TAVR procedure Exam Location: [facility]. Interpretation Summary PRE TAVR: There is [...] 28mL/m2. POST TAVR: Normal function of the fahcq-tj-ylehc prosthesis. See belowfor hemodynamic parameters. Slight improvement in left and right ventricularsystolic function. LVEF now 20-25%. No pericardial effusion. See report for additional findings. Procedure Limited - 24893. Doppler - 19720. Color Doppler - 82480. Left Ventricle Left ventricle is of normal [...] Modality Other Narrative 05/12/2023 2:37 PM EDT ?[facility] ? Cardiac Catheterization/Intervention Report ? Patient Name: Kirstie, Purnima M. ? Procedure Date: 05/12/2023 ? A #: [id number] ? Primary Physician: Antelmo Sharma ? Case #: [id number] ? File Name: [id number] ? Catheterization Order Number: [id number] ? [facility] ? Final Report [place], [place] ? Patient Name: ? Purnima M. Kirstie ? ID#: ?[id number] ? : ?1955 ? Procedure Date: ? May 12, 2023 ? Case #: ? [id number] ? Room: ? 6 ? Case Physicians: ?Antelmo Sharma M.D. ?Start: ?08:03 ?Alirio Hudson M.D. ?Admission: ??05/08/2023 ?Lynda Mcgowan M.D. ? Discharge: ??05/22/2023 ?Fellow: ? Rebekah Tejeda M.D. ? Referring Physician: ??Mario Alberto Chin M.D. ? Procedures: ?* Coronary Angiography ?* Left Heart Catheterization ?* Coronary Stent Insertion ?* Transcatheter Aortic Valve Replacement ?* Vascular Closure Device Deployment ?* Temporary Pacemaker Insertion In Riveting Machine Operator Automatic ?* Endotracheal Intubation By Non-Cath Physician ?* [...] was designated as ASA Class IV. The [facility] clinical ?frailty scale is 4: Vulnerable. [...] ??A premounted 4.00 x 30 mm Nils Patterson (MINNA) was ? deployed with a maximum [...] calculated STS risk score was 30.1%. A djamy-kf-ryttp ?procedure was performed on the pre-existing bioprosthetic stented ?prosthesis. The priority of the dryup-oz-uwlkk procedure was Elective. ?The procedure was performed under Moderate sedation performed by Lynda Ramires ?Aadir Mcgowan (see anesthesia report for additional details). Alirio Powell ?Adair Hudson participated in the case (see Cardiac Surgery report for ?additional details). ?The TAVR sheath was a 14 Fr Corona eSheath Introducer and the access ?site was femoral. Rapid ventricular pacing was performed. ?An Corona Lai 3 Ultra RESILIA 23 mm THV (s/v=[id number]) transcatheter ?valve was inserted using standard technique. [...] to nor was it given in the ?director of cardiac cath lab. ?Recommended anti-platelet/anti-thrombotic regimen: ?Continue aspirin 81 mg daily for indefinitely. ?These recommendations are made at the time of the intervention. Patient ?and provider preferences or a changing clinical situation may require ?modification of this regimen. Consult [facility] Interventional Cardiology for ?questions. ? Conclusions: ?* [...] regimen. ? Comments: ?Successful right transfemoral TAVR Cqtbb-pt-Deuys with a 23 mm Lai 3 ?THV. [...] insertion-coronary, access site angiography, ?temporary pacemaker in director of cardiac cath lab, intubation-non cath physician, vascular ?closure device, transthoracic echo ??and TAVR. Dr. Alirio Hudson M.D. ?performed the left heart catheterization, access site angiography, ?temporary pacemaker in director of cardiac cath lab, vascular closure device, transthoracic ?echo , TAVR and CPR during cath. Dr. Lynda Mcgowan M.D. performed the ABG, ?anesthesia and intubation-non cath physician. ? Antelmo Sharma M.D. ? Electronically Signed by: Antelmo Sharma M.D. ? Report Finalized: 05/12/2023 ??14:31 ? Report Last Ammended: 07/01/2023 ??11:30 ? Procedure Note Antelmo Sharma MD - 07/01/2023 [facility] Cardiac Catheterization/Intervention Report Patient Name: Purnima Thacker Procedure Date: 05/12/2023 A #: [id number] Primary Physician: Antelmo Sharma Case #: [id number] File Name: [id number] Catheterization Order Number: [id number] [facility] FinalReport [place], [place] Patient Name: Purnima Thacker ID#:[id number] :1955 Procedure Date: May 12, 2023 Case #: [id number] Room: 6 Case Physicians: Antelmo Sharma M.D. Start: 08:03 Alirio Hudson M.D. Admission:05/08/2023 Lynda Mcgowan M.D. Discharge:05/22/2023 Fellow: Rebekah Tejeda M.D. Referring Physician: Mario Alberto Chin M.D. Procedures: * Coronary Angiography * Left Heart Catheterization * Coronary Stent Insertion * Transcatheter Aortic Valve Replacement * Vascular Closure Device Deployment * Temporary Pacemaker Insertion In Riveting Machine Operator Automatic * Endotracheal Intubation By Non-Cath Physician * [...] A premounted 4.00 x 30 mm Nils Patterson (MINNA) was deployed with a maximum inflation [...] calculated STS risk score was 30.1%. A ulzzr-dc-rxajk procedure was performed on the pre-existing bioprosthetic stented prosthesis. The priority of the rslan-ca-mrsnq procedure wasElective. The procedure was performed under Moderate sedation performed byLynda Mcgowan M.D. (see anesthesia report for additional details). Alirio Hudson M.D. participated in the case (see Cardiac Surgery reportfor additional details). The TAVR sheath was a 14 Fr Corona eSheath Introducer and theaccess site was femoral. Rapid ventricular pacing was performed. An Corona Lai 3 Ultra RESILIA 23 mm THV (s/t=[id number])transcatheter valve was inserted using standard technique. The [...] prior to nor was it given inthe director of cardiac cath lab. Recommended anti-platelet/anti-thrombotic regimen: Continue aspirin 81 mg daily for indefinitely. These recommendations are made at the time of the intervention.Patient and provider preferences or a changing clinical situation mayrequire modification of this regimen. Consult [facility] Interventional Cardiologyfor questions. Conclusions: * Nonobstructive disease [...] this regimen. Comments: Successful right transfemoral TAVR Dwqxm-xq-Uiujq with a 23 mmSapien 3 THV. We [...] insertion-coronary, access site angiography, temporary pacemaker in director of cardiac cath lab, intubation-non cath physician,vascular closure device, transthoracic echo and TAVR. Dr. Alirio Hudson M.D. performed the left heart catheterization, access site angiography, temporary pacemaker in director of cardiac cath lab, vascular closure device,transthoracic echo , TAVR and [...] pH, POC 7.20(Crit ical) 7.35 - 7.45 [facility] Comment:Critical value OK, C C Lab. pCO2, POC 42 35 - 45 mmHg [facility] pO2, POC 260(H) 85 - 104 mmHg [facility] Base Excess, POC -11.0(L) -3.0 - 3.0 mmol/L [facility] Bicarbonate, POC 16.7(L) 20.0 - 26.0 mmol/L [facility] Sodium, POC 129(L) 135 - 145 mmol/L [facility] POC Potassium 3.8 3.5 - 5.0 mmol/L [facility] Ionized Calcium, POC 1.12(L) 1.15 - 1.33 mmol/L [facility] POC Hematocrit 23.0(L) 34.0 - 45.0 % [facility] POC Calc Hgb 7.8(L) 11.2 - 15.7 g/dL [facility] Comment:The calculation of h emoglobin from hematocrit assumes a normal MCHC. POC Bgas Loc CC Lab [facility] Blood 05/12/2023 8:50 AM EDT 05/13/2023 12:00 PM EDT Alirio Hudson MD CHEMISTRY ORDERABLE S [facility] [place] [address] * (ABNORMAL) Point of Care Blood Gas Historical (05/12/2023 8:10 AM EDT) pH, POC 7.27(Crit ical) 7.35 - 7.45 [facility] Comment:Critical value OK, C C Lab. pCO2, POC 37 35 - 45 mmHg [facility] pO2, POC 29(Critic al) 85 - 104 mmHg [facility] Comment:Critical value OK, C C Lab. Base Excess, POC -10.0(L) -3.0 - 3.0 mmol/L [facility] Bicarbonate, POC 16.7(L) 20.0 - 26.0 mmol/L [facility] Sodium, POC 123(L) 135 - 145 mmol/L [facility] POC Potassium 4.0 3.5 - 5.0 mmol/L [facility] Ionized Calcium, POC 1.12(L) 1.15 - 1.33 mmol/L [facility] POC Hematocrit 27.0(L) 34.0 - 45.0 % [facility] POC Calc Hgb 9.2(L) 11.2 - 15.7 g/dL [facility] Comment:The calculation of h emoglobin from hematocrit assumes a normal MCHC. POC Bgas Loc CC Lab [facility] Blood 05/12/2023 8:10 AM EDT 05/13/2023 12:00 PM EDT Alirio Hudson MD CHEMISTRY ORDERABLE S [facility] [place] [address] * (ABNORMAL) Lactate, whole blood, send to lab ([facility]) (05/12/2023 7:00 AM EDT) Lactate WB 2.4(H) 0.5 - 2.2 mmol/L [facility] Blood 05/12/2023 7:00 AM EDT 05/12/2023 7:09 AM EDT Narrative Resulting Agency Comment Spec In Lab Radha Hollins MD CHEMISTRY ORDERABL ES [facility] [place] [address] * (ABNORMAL) Comprehensive metabolic panel (non-fasting) (05/12/2023 6:00 AM EDT) Glucose 167 65 - 199 mg/dL [facility] Comment:Diabetes: >=200 mg/d L plus symptoms Blood Urea Nitrogen 67(H) 8 - 18 mg/dL [facility] Creatinine 2.01(H) 0.70 - 1.20 mg/dL [facility] Sodium 131(L) 135 - 145 mmol/L [facility] Potassium 4.3 3.5 - 5.0 mmol/L [facility] Comment: Please note: ??Patients with WBC >100,000 may have falsely elevated Potassium levels. ??For accurate Potassium quantification in these patients send serum separator tube (gold top) for subsequent determinations. ??Contact the Clinical Chemistry Laboratory if there are any questions. Chloride 97(L) 98 - 107 mmol/L [facility] Carbon Dioxide 14(L) 22 - 31 mmol/L [facility] Anion Gap 20(H) 5 - 15 mmol/L [facility] Calcium 8.6 8.5 - 10.5 mg/dL [facility] Protein, Total 6.3 6.1 - 8.0 g/dL [facility] Albumin 3.5 3.2 - 5.2 g/dL [facility] Aspartate Aminotransferase 1,435(H) 0 - 30 unit/L [facility] Alanine Aminotransferase 1,174(H) 0 - 30 unit/L [facility] Alkaline Phosphatase 100 35 - 105 unit/L [facility] Bilirubin, Total 0.9 0.2 - 1.3 mg/dL [facility] Est Glomerular Filtration Rate [...] MD CHEMISTRY ORDERABL ES Performing Organization Address City/[facility] [[email or web address]] Co de Phone Number [facility] [place] [address] * (ABNORMAL) Coox2 (05/12/2023 5:08 AM EDT) pO2, Coox 24 mmHg [facility] Hgb Blood Gas 10.4(L) 11.7 - 15.5 g/dL [facility] Oxyhemoglobin, Coox 30.7 % [facility] Carboxyhemoglo bin, Coox 0.3 % [facility] Comment: Nonsmokers: 0.5-1.5% COHB Smokers: Variable, but usually less than 10% Toxic: 20-30% COHB Lethal: Greater than 60% COHB Methemoglobin, Coox 0.8 <=1.5 % [facility] Source Coox Mixed Venous [facility] Blood 05/12/2023 5:08 AM EDT 05/12/2023 5:08 AM EDT Radha Hollins MD POINT OF CARE TEST ORDERABLES Performing Organization Address City/[facility] [[email or web address]] Co de Phone Number [facility] [place] [address] * (ABNORMAL) Coox2 (05/12/2023 3:21 AM EDT) pO2, Coox 25 mmHg [facility] Hgb Blood Gas 10.8(L) 11.7 - 15.5 g/dL [facility] Oxyhemoglobin, Coox 32.7 % [facility] Carboxyhemoglo bin, Coox 0.3 % [facility] Comment: Nonsmokers: 0.5-1.5% COHB Smokers: Variable, but usually less than 10% Toxic: 20-30% COHB Lethal: Greater than 60% COHB Methemoglobin, Coox 0.7 <=1.5 % [facility] Source Coox Mixed Venous [facility] Blood 05/12/2023 3:21 AM EDT 05/12/2023 3:21 AM EDT Radha Hollins MD POINT OF CARE TEST ORDERABLES [facility] [place] [address] * (ABNORMAL) BLOOD GAS 2 ARTERIAL (05/12/2023 3:18 AM EDT) pH, Arterial 7.34(L) 7.35 - 7.45 [facility] PCO2, Arterial 30(L) 35 - 45 mmHg [facility] PO2, Arterial 72(L) 85 - 104 mmHg [facility] Bicarbonate, Arterial 16.0(L) 20.0 - 26.0 mmol/L [facility] Base Excess, Arterial -9.8(L) -3.0 - 3.0 mmol/L [facility] Hgb Blood Gas 11.0(L) 11.7 - 15.5 g/dL [facility] Oxyhemoglobin, Arterial 89.8(L) 94.0 - 97.0 % [facility] Carboxyhemoglob in, Arterial 0.3 % [facility] Comment: Nonsmokers: 0.5-1.5% COHB Smokers: Variable, but usually less than 10% Toxic: 20-30% COHB Lethal: Greater than 60% COHB Methemoglobin, Arterial 0.7 <=1.5 % [facility] Na Whole Blood 131(L) 135 - 145 mmol/L [facility] K Whole Blood 4.2 3.5 - 5.0 mmol/L [facility] Comment: Please note: Patients with WBC >100,000 may have falsely elevated Potassium levels. Contact the Clinical Chemistry Laboratory if there are any questions. ICa Whole Blood 1.12(L) 1.15 - 1.33 mmol/L [facility] Comment: Note: ??Total bilirubin higher than 20 mg/dL may lead to falsely low ionized calcium. CL Whole Blood 100 98 - 107 mmol/L [facility] Gluc Whole Bld 160 65 - 199 mg/dL [facility] Comment:Diabetes: >=200 mg/d L plus symptoms. Lactate WB 2.7(H) 0.5 - 2.2 mmol/L [facility] Flow Art 5.0 LPM [facility] Blood 05/12/2023 3:18 AM EDT 05/12/2023 3:18 AM EDT Radha Hollins MD POINT OF CARE TEST ORDERABLES Performing Organization Address [facility] [[email or web address]] Co de Phone Number [facility] [place] [address] * (ABNORMAL) Coox2 (05/12/2023 1:14 AM EDT) pO2, Coox 28 mmHg [facility] Hgb Blood Gas 10.9(L) 11.7 - 15.5 g/dL [facility] Oxyhemoglobin, Coox 37.3 % [facility] Carboxyhemoglo bin, Coox 0.3 % [facility] Comment: Nonsmokers: 0.5-1.5% COHB Smokers: Variable, but usually less than 10% Toxic: 20-30% COHB Lethal: Greater than 60% COHB Methemoglobin, Coox 0.5 <=1.5 % [facility] [facility] Source Coox Mixed Venous [facility] Blood 05/12/2023 1:14 AM EDT 05/12/2023 1:14 AM EDT Radha Hollins MD POINT OF CARE TEST ORDERABLES Performing Organization Address [facility] [[email or web address]] Co de Phone Number [facility] [place] [address] * (ABNORMAL) BLOOD GAS 2 ARTERIAL (05/12/2023 1:06 AM EDT) pH, Arterial 7.34(L) 7.35 - 7.45 [facility] PCO2, Arterial 30(L) 35 - 45 mmHg [facility] PO2, Arterial 81(L) 85 - 104 mmHg [facility] Bicarbonate, Arterial 15.7(L) 20.0 - 26.0 mmol/L [facility] Base Excess, Arterial -10.1(L) -3.0 - 3.0 mmol/L [facility] Hgb Blood Gas 11.0(L) 11.7 - 15.5 g/dL [facility] Oxyhemoglobin, Arterial 92.3(L) 94.0 - 97.0 % [facility] Carboxyhemoglob in, Arterial 0.2 % [facility] Comment: Nonsmokers: 0.5-1.5% COHB Smokers: Variable, but usually less than 10% Toxic: 20-30% COHB Lethal: Greater than 60% COHB Methemoglobin, Arterial 0.6 <=1.5 % [facility] Na Whole Blood 131(L) 135 - 145 mmol/L [facility] K Whole Blood 4.2 3.5 - 5.0 mmol/L [facility] Comment: Please note: Patients with WBC >100,000 may have falsely elevated Potassium levels. Contact the Clinical Chemistry Laboratory if there are any questions. ICa Whole Blood 1.13(L) 1.15 - 1.33 mmol/L [facility] Comment: Note: ??Total bilirubin higher than 20 mg/dL may lead to falsely low ionized calcium. CL Whole Blood 99 98 - 107 mmol/L [facility] Gluc Whole Bld 132 65 - 199 mg/dL [facility] Comment:Diabetes: >=200 mg/d L plus symptoms. Lactate WB 2.7(H) 0.5 - 2.2 mmol/L [facility] Flow Art 5.0 LPM [facility] Blood 05/12/2023 1:06 AM EDT 05/12/2023 1:06 AM EDT Radha Hollins MD POINT OF C[place] [address] * (ABNORMAL) Differential, Automated (05/12/2023 1:05 AM EDT) Neutrophil % 83.3 % [facility] Neutrophil Absolute 7.49(H) 1.70 - 6.10 x10(3)/mc L [facility] Lymph % 7.1 % [facility] Lymphocytes Abs 0.6(L) 0.9 - 3.2 x10(3)/mc L [facility] Monocyte % 8.9 % [facility] Monocyte Abs 0.8 0.3 - 0.9 x10(3)/mc L [facility] Eos % 0.0 % [facility] Eosinophils Abs 0.0 0.0 - 0.4 x10(3)/mc L [facility] Basophil % 0.1 % [facility] Baso Absolute 0.0 0.0 - 0.1 x10(3)/mc L [facility] Immature Gran % 0.60 % [facility] Comment: Immature granulocytes(IG's)percentage and absolute count will include metamyelocytes, myelocytes, and promyelocytes. Blood smears from CBCs yielding IG's will be scanned manually for concordance. If this scan disagrees with the automated IG or if promyelocytes are noted, a manual differential will be performed. Immature Gran Absolute 0.05(H) 0.00 - 0.04 x10(3)/mc L [facility] Blood 05/12/2023 1:05 AM EDT 05/12/2023 1:15 AM EDT Narrative Resulting Agency Comment Spec In Lab Gianni Fletcher MD [place] [address] * (ABNORMAL) Hemogram (05/12/2023 1:05 AM EDT) White Blood Cell 9.0 4.0 - 9.5 x10(3)/mc L [facility] Red Blood Cell 3.01(L) 4.00 - 5.21 x10(6)/mc L [facility] Hemoglobin 9.8(L) 11.7 - 15.5 g/dL [facility] Hematocrit 28.7(L) 35.7 - 45.8 % [facility] Mean Cell Volume 95.3(H) 82.6 - 94.4 fL [facility] Mean Cell Hemoglobin 32.6(H) 27.1 - 32.0 pg [facility] Mean Cell Hemoglobin Concentration 34.1 31.7 - 35.0 g/dL [facility] Platelet 186 145 - 357 x10(3)/mc L [facility] RDW Standard Deviation 43.7 37.0 - 46.0 fL [facility] RDW coefficient of variation 12.7 11.5 - 14.1 % [facility] Mean Platelet Volume 10.3 7.6 - 12.9 fL [facility] NRBC% auto 0.0 % [facility] NRBC Absolute 0.000 0.000 - 0.000 x10(3)/ L [facility] Blood 05/12/2023 1:05 AM EDT 05/12/2023 1:15 AM EDT Narrative Resulting Agency Comment Spec In Lab Gianni Fletcher MD HEMATOLOGY ORDERABLE S [facility] [place] [address] * (ABNORMAL) Comprehensive metabolic panel (non-fasting) (05/12/2023 1:05 AM EDT) Glucose 141 65 - 199 mg/dL [facility] Comment:Diabetes: >=200 mg/d L plus symptoms Blood Urea Nitrogen 63(H) 8 - 18 mg/dL [facility] Creatinine 1.86(H) 0.70 - 1.20 mg/dL [facility] Sodium 131(L) 135 - 145 mmol/L [facility] Potassium 4.4 3.5 - 5.0 mmol/L [facility] Comment: Please note: ??Patients with WBC >100,000 may have falsely elevated Potassium levels. ??For accurate Potassium quantification in these patients send serum separator tube (gold top) for subsequent determinations. ??Contact the Clinical Chemistry Laboratory if there are any questions. Chloride 96(L) 98 - 107 mmol/L [facility] Carbon Dioxide 14(L) 22 - 31 mmol/L [facility] Anion Gap 21(H) 5 - 15 mmol/L [facility] Calcium 9.0 8.5 - 10.5 mg/dL [facility] Protein, Total 6.6 6.1 - 8.0 g/dL [facility] Albumin 3.9 3.2 - 5.2 g/dL [facility] Aspartate Aminotransferase 1,227(H) 0 - 30 unit/L [facility] Alanine Aminotransferase 1,097(H) 0 - 30 unit/L [facility] Alkaline Phosphatase 108(H) 35 - 105 unit/L [facility] Bilirubin, Total 1.0 0.2 - 1.3 mg/dL [facility] Est Glomerular Filtration Rate 29(L) >=60 mL/min/1. 73 m?? [facility] Comment: This patient's estimated [...] Lab Radha Hollins MD CHEMISTRY ORDERABL ES [facility] [place] [address] * XR Chest One View (05/12/2023 1:00 [...] questions please contact the health health care social worker that requested your imaging first. ? [...] have questions please contactthe health health care social worker that requested your imaging first. Radha Hollins MD IMG DX ORDERABLES * (ABNORMAL) Coox2 (05/12/2023 12:30 AM EDT) pO2, Coox 22 mmHg [facility] Hgb Blood Gas 10.9(L) 11.7 - 15.5 g/dL [facility] Oxyhemoglobin, Coox 25.1 % [facility] Carboxyhemoglo bin, Coox 0.3 % [facility] Comment: Nonsmokers: 0.5-1.5% COHB Smokers: Variable, but usually less than 10% Toxic: 20-30% COHB Lethal: Greater than 60% COHB Methemoglobin, Coox 1.4 <=1.5 % [facility] Source Coox Mixed Venous [facility] Blood 05/12/2023 12:3 0 AM EDT 05/12/2023 12:30 AM EDT Radha Hollins MD POINT [place] [address] * XR Chest One View (05/11/2023 11:45 [...] questions please contact the health health care social worker that requested your imaging first. ? [...] have questions please contactthe health health care social worker that requested your imaging first. Radha Hollins MD IMG DX ORDERABLES * (ABNORMAL) Lactate, whole blood, send to lab ([facility]) (05/11/2023 7:40 PM EDT) Pathologist [facility] Lactate WB 4.8(Critic al) 0.5 - 2.2 mmol/L [facility] Comment:Called by: [facility], Read back by: Magdalena Baires, Date/Time:05/11/23 19:54. Blood 05/11/2023 7:40 PM EDT 05/11/2023 7:49 PM EDT Narrative Resulting Agency Comment Spec In Lab Radha Hollins MD CHEMISTRY ORDERABL ES [facility] [place] [address] * Urine culture (05/11/2023 7:22 PM EDT) Pathologist [facility] Urine Culture 50,000-99,000 cfu/ml Normal mucosal herman Susceptibilit y testing not routinely performed for Coagulase Negative Staphylococcu s species and other Gram Positive organisms from urine. [facility] Clean Catch Urine 05/11/2023 7:22 PM EDT 05/11/2023 8:50 PM EDT Narrative Resulting Agency Comment Spec In Lab Brody Kaplan APRN MICROBIOLOGY - GENE RAL ORDERABLES Performing Organization Address [facility] [[email or web address]] Co de Phone Number [facility] [place] [address] * (ABNORMAL) Urinalysis Microscopic Exam (05/11/2023 7:22 PM EDT) RBC, Urine 2 0 - 4 /HPF [facility] WBC, Urine >100(H) 0 - 5 /HPF [facility] Bacteria, Urine Occasional (A) None /HPF [facility] Squamous Epithelial Cells Raw Data, Urine 5(H) <=4 /HPF [facility] Hyaline Casts, Urine 3(H) 0 - 2 /LPF [facility] Clean Catch Urine 05/11/2023 7:22 PM EDT 05/11/2023 7:31 PM EDT Narrative Resulting Agency Comment Spec In Lab Brody Kaplan FORMING [employer] OPERATOR HEAVY DUTY URINE ORDERABLES Performing Organization Address [facility] de Phone Number [facility] [place] [address] * (ABNORMAL) Urinalysis with reflex Culture (05/11/2023 7:22 PM EDT) Glucose, Urine Dipstick Negative Negative mg/dL [facility] Protein, Urine Dipstick Trace(A) Negative mg/dL [facility] Bilirubin, Urine Dipstick Negative Negative mg/dL [facility] Comment: Clinical correlation required for positive Urine Bilirubin results as false positive may occur with some drugs and drug related products. If a false positive is suspected a serum total bilirubin should be considered if clinically indicated. Urobilinogen, Urine Dipstick Normal Normal mg/dL [facility] pH, Urn (dipstick) 5.0 5.0 - 8.0 [facility] Blood, Urine Dipstick Trace(A) Negative mg/dL [facility] Ketone, Urine Dipstick Negative Negative mg/dL [facility] Nitrite, Urine Dipstick Negative Negative [facility] Leukocytes, Urine Dipstick Moderate(A) Negative mcL [facility] Appearance, Urine Dipstick Cloudy(A) Clear [facility] Specific [place] Urine Automated >=1.030(A) 1.005 - 1.030 [facility] Color, Urine Dipstick Yellow Yellow [facility] Reflex to Culture Yes [facility] Clean Catch Urine 05/11/2023 7:22 PM EDT 05/11/2023 7:31 PM EDT Narrative Resulting Agency Comment Spec In Lab Brody Kaplan APRN URINE ORDERABLES Performing Organization Address [facility]/ZIP Co de Phone Number [facility] [address] * (ABNORMAL) pro-Brain Natriuretic Peptide (05/11/2023 7:11 PM EDT) NT-proBNP >35,000(H) <=124 pg/mL [facility] Blood 05/11/2023 7:11 PM EDT 05/11/2023 7:26 PM EDT Narrative Resulting Agency Comment Spec In Lab Radha Hollins MD CHEMISTRY ORDERABL ES Performing Organization Address [facility] [[email or web address]] Co de Phone Number [facility] [place] [address] * (ABNORMAL) Lactate, whole blood, send to lab ([facility] [place] [facility]) (05/11/2023 2:47 PM EDT) Lactate WB 2.9(H) 0.5 - 2.2 mmol/L [facility] Blood 05/11/2023 2:47 PM EDT 05/11/2023 2:53 PM EDT Narrative Resulting Agency Comment Spec In Lab Juan Luis Gonzalez MD CHEMISTRY ORDERABLES Performing Organization Address [facility]/ZIP Co de Phone Number [facility] [place] [address] * (ABNORMAL) CT Angiogram Abdomen & Pelvis [...] questions please contact the health health care social worker that requested your imaging first. ? Electronically signed by: Eileen Gomes MD, [facility] ([phone]), at 05/11/2023 2:42 PM Narrative 05/11/2023 2:42 [...] questions please contact the health health care social worker that requested your imaging first. ? Electronically signed by: Cullen Naraaynan MD, [facility] ([phone]), at 05/11/2023 4:37 PM Narrative 05/11/2023 4:37 [...] 610 mm2 Circumference: 88 mm Calcification: Mild Daibhgx-kp-dhxscwyx height: Left: 6.2 mm Right: 5.8 mm THORACIC AORTA Description: Normal course and caliber. ??Mild diffuse atherosclerotic changes. No acute aortopathy noted. Infrastructure Technician dimensions: Aortic root: 27.6 mm Max ascending [...] 610 mm2 Circumference: 88 mm Calcification: Mild Yidmzfh-wu-ypwxasco height: Left: 6.2 mm Right: 5.8 mm THORACIC AORTA Description: Normal course and caliber. Mild diffuse atheroscleroticchanges. No acute aortopathy noted. Infrastructure Technician dimensions: Aortic root: 27.6 mm Max ascending [...] have questions please contactthe health health care social worker that requested your imaging first. Electronically signed by: Cullen Narayanan MD, [facility]([phone]), at 05/11/2023 4:37 PM Antelmo Sharma MD [facility] ORDERABLES * (ABNORMAL) Lactate, whole blood, send to lab ([facility]) (05/11/2023 9:29 AM EDT) Lactate WB 3.1(H) 0.5 - 2.2 mmol/L [facility] Blood 05/11/2023 9:29 AM EDT 05/11/2023 9:38 AM EDT Narrative Resulting Agency Comment Spec In Lab Juan Luis Gonzalez MD CHEMISTRY ORDERABLES Performing Organization Address City/[facility]/ZIP Co de Phone Number [facility] [place] [address] * (ABNORMAL) Differential, Automated (05/11/2023 4:42 AM EDT) Neutrophil % 78.1 % [facility] Neutrophil Absolute 5.46 1.70 - 6.10 x10(3)/mc L [facility] Lymph % 10.6 % [facility] Lymphocytes Abs 0.7(L) 0.9 - 3.2 x10(3)/mc L [facility] Monocyte % 9.6 % [facility] Monocyte Abs 0.7 0.3 - 0.9 x10(3)/mc L [facility] Eos % 0.0 % [facility] Eosinophils Abs 0.0 0.0 - 0.4 x10(3)/mc L [facility] Basophil % 0.4 % [facility] Baso Absolute 0.0 0.0 - 0.1 x10(3)/mc L [facility] Immature Gran % 1.30 % [facility] Comment: Immature granulocytes(IG's)percentage and absolute count will include metamyelocytes, myelocytes, and promyelocytes. Blood smears from CBCs yielding IG's will be scanned manually for concordance. If this scan disagrees with the automated IG or if promyelocytes are noted, a manual differential will be performed. Immature Gran Absolute 0.09(H) 0.00 - 0.04 x10(3)/mc L [facility] Blood 05/11/2023 4:42 AM EDT 05/11/2023 4:49 AM EDT Narrative Resulting Agency Comment Spec In Lab Klaudia Reid MD HEMATOLOGY OR DERABLES [facility] [place] [address] * (ABNORMAL) Hemogram (05/11/2023 4:42 AM EDT) White Blood Cell 7.0 4.0 - 9.5 x10(3)/mc L [facility] Red Blood Cell 3.44(L) 4.00 - 5.21 x10(6)/mc L [facility] Hemoglobin 11.1(L) 11.7 - 15.5 g/dL [facility] Hematocrit 32.7(L) 35.7 - 45.8 % [facility] Mean Cell Volume 95.1(H) 82.6 - 94.4 fL [facility] Mean Cell Hemoglobin 32.3(H) 27.1 - 32.0 pg [facility] Mean Cell Hemoglobin Concentration 33.9 31.7 - 35.0 g/dL [facility] Platelet 165 145 - 357 x10(3)/mc L [facility] RDW Standard Deviation 43.1 37.0 - 46.0 fL [facility] RDW coefficient of variation 12.7 11.5 - 14.1 % [facility] Mean Platelet Volume 10.1 7.6 - 12.9 fL [facility] NRBC% auto 0.0 % [facility] NRBC Absolute 0.000 0.000 - 0.000 x10(3)/ L [facility] Blood 05/11/2023 4:42 AM EDT 05/11/2023 4:49 AM EDT Narrative Resulting Agency Comment Spec In Lab Klaudia Reid MD HEMATOLOGY OR DERABLES [facility] [place] [address] * Heparin (unfractionated) Level (05/11/2023 4:42 AM EDT) UF Heparin 0.46 IU/mL [facility] Comment: Heparin (anti-Xa) [...] Lab Radha Hollins MD HEMATOLOGY ORDERAB LES [facility] [place] [address] * (ABNORMAL) Comprehensive metabolic panel (non-fasting) (05/11/2023 4:42 AM EDT) Glucose 143 65 - 199 mg/dL [facility] Comment:Diabetes: >=200 mg/d L plus symptoms Blood Urea Nitrogen 42(H) 8 - 18 mg/dL [facility] Creatinine 1.24(H) 0.70 - 1.20 mg/dL [facility] Sodium 134(L) 135 - 145 mmol/L [facility] Potassium 4.6 3.5 - 5.0 mmol/L [facility] Comment: Please note: ??Patients with WBC >100,000 may have falsely elevated Potassium levels. ??For accurate Potassium quantification in these patients send serum separator tube (gold top) for subsequent determinations. ??Contact the Clinical Chemistry Laboratory if there are any questions. Chloride 99 98 - 107 mmol/L [facility] Carbon Dioxide 14(L) 22 - 31 mmol/L [facility] Anion Gap 21(H) 5 - 15 mmol/L [facility] Calcium 9.6 8.5 - 10.5 mg/dL [facility] Protein, Total 7.2 6.1 - 8.0 g/dL [facility] Albumin 3.7 3.2 - 5.2 g/dL [facility] Aspartate Aminotransferase 144(H) 0 - 30 unit/L [facility] Comment:result rechecked-ssc Alanine Aminotransferase 130(H) 0 - 30 unit/L [facility] Comment:result rechecked-ssc Alkaline Phosphatase 72 35 - 105 unit/L [facility] Bilirubin, Total 0.8 0.2 - 1.3 mg/dL [facility] Est Glomerular Filtration Rate 48(L) >=60 mL/min/1. 73 m?? [facility] Comment: This patient's estimated [...] Lab Radha Hollins MD CHEMISTRY ORDERABL ES [facility] [place] [address] * EKG 12 Lead (05/10/2023 1:16 PM EDT) Ventricular rate 118 BPM MUSE SYSTEM Atrial Rate 118 BPM MUSE SYSTEM P-R Interval 152 ms MUSE SYSTEM QRS Duration 104 ms MUSE SYSTEM Q-T Interval 316 ms MUSE SYSTEM QTC Calculated (Bezet) 442 ms MUSE SYSTEM Calculated P [place] 29 degrees MUSE SYSTEM Calculated R [place] 18 degrees MUSE SYSTEM Calculated T [place] -173 degrees MUSE SYSTEM INTERPRETATION Sinus tachycardia [...] Anterior leads Confirmed by MD Villareal Danette ([id number]) on 05/10/2023 8:47:46 PM MUSE SYSTEM 05/10/2023 1:16 PM EDT 05/10/2023 8:47 PM EDT Juan Luis Gonzalez MD ECG ORDERABLES MUSE SYSTEM * Lactate, whole blood, send to lab ([facility]) (05/10/2023 11:52 AM EDT) Lactate WB 1.8 0.5 - 2.2 mmol/L [facility] Blood 05/10/2023 11:5 2 AM EDT 05/10/2023 12:13 PM EDT Narrative Resulting Agency Comment Spec In Lab Juan Luis Gonzalez MD CHEMISTRY ORDERABLES Performing Organization Address City/[facility] [[email or web address]] Co de Phone Number [facility] [place] [address] * XR Chest One View (05/10/2023 11:16 [...] questions please contact the health health care social worker that requested your imaging first. ? [...] have questions please contactthe health health care social worker that requested your imaging first. Electronically signed by: ALIX RUVALCABA MD, [facility]([phone]), at 05/10/2023 1:25 PM Juan Luis Gonzalez MD IMG DX ORDERABLES * EKG 12 Lead (05/10/2023 7:59 AM EDT) Ventricular rate 115 BPM MUSE SYSTEM Atrial Rate 115 BPM MUSE SYSTEM P-R Interval 142 ms MUSE SYSTEM QRS Duration 102 ms MUSE SYSTEM Q-T Interval 322 ms MUSE SYSTEM QTC Calculated (Bezet) 445 ms MUSE SYSTEM Calculated P [place] 36 degrees MUSE SYSTEM Calculated R [place] 28 degrees MUSE SYSTEM Calculated T [place] -119 degrees MUSE SYSTEM INTERPRETATION Sinus tachycardia with frequent Premature ventricular complexes and Fusion complexes ST & T wave abnormality, consider lateral ischemia Abnormal ECG When compared with ECG of 08-MAY-2023 15:51, No significant change was found I personally reviewed the tracing and edited the fellows interpretation Confirmed by fellow MD Anitha, Carissa ([id number]) on 05/11/2023 6:19:54 AM Confirmed by MD Tram, Chel ([id number]) on 05/11/2023 3:18:56 PM MUSE SYSTEM 05/10/2023 7:59 AM EDT 05/11/2023 3:18 PM EDT Radha Hollins MD ECG ORDERABLES MUSE SYSTEM * (ABNORMAL) Differential, Automated (05/10/2023 2:28 AM EDT) Neutrophil % 77.1 % [facility] Neutrophil Absolute 4.01 1.70 - 6.10 x10(3)/mc L [facility] Lymph % 14.0 % [facility] Lymphocytes Abs 0.7(L) 0.9 - 3.2 x10(3)/mc L [facility] Monocyte % 7.7 % [facility] Monocyte Abs 0.4 0.3 - 0.9 x10(3)/mc L [facility] Eos % 0.4 % [facility] Eosinophils Abs 0.0 0.0 - 0.4 x10(3)/mc L [facility] Basophil % 0.4 % [facility] Baso Absolute 0.0 0.0 - 0.1 x10(3)/mc L [facility] Immature Gran % 0.40 % [facility] Comment: Immature granulocytes(IG's)percentage and absolute count will include metamyelocytes, myelocytes, and promyelocytes. Blood smears from CBCs yielding IG's will be scanned manually for concordance. If this scan disagrees with the automated IG or if promyelocytes are noted, a manual differential will be performed. Immature Gran Absolute 0.02 0.00 - 0.04 x10(3)/mc L [facility] Blood 05/10/2023 2:28 AM EDT 05/10/2023 2:57 AM EDT Narrative Resulting Agency Comment Spec In Lab Klaudia Reid MD HEMATOLOGY OR DERABLES Performing Organization Address City/[facility]/ZIP Co de Phone Number [facility] [place] [address] * (ABNORMAL) Hemogram (05/10/2023 2:28 AM EDT) White Blood Cell 5.2 4.0 - 9.5 x10(3)/mc L [facility] [facility] Red Blood Cell 3.11(L) 4.00 - 5.21 x10(6)/mc L [facility] Hemoglobin 10.2(L) 11.7 - 15.5 g/dL [facility] Hematocrit 30.2(L) 35.7 - 45.8 % [facility] Mean Cell Volume 97.1(H) 82.6 - 94.4 fL [facility] Mean Cell Hemoglobin 32.8(H) 27.1 - 32.0 pg [facility] Mean Cell Hemoglobin Concentration 33.8 31.7 - 35.0 g/dL [facility] Platelet 151 145 - 357 x10(3)/mc L [facility] RDW Standard Deviation 44.9 37.0 - 46.0 fL [facility] RDW coefficient of variation 12.8 11.5 - 14.1 % [facility] Mean Platelet Volume 9.8 7.6 - 12.9 fL [facility] NRBC% auto 0.0 % [facility] NRBC Absolute 0.000 0.000 - 0.000 x10(3)/mc L [facility] Blood 05/10/2023 2:28 AM EDT 05/10/2023 2:57 AM EDT Narrative Resulting Agency Comment Spec In Lab Klaudia Reid MD HEMATOLOGY OR DERABLES Performing Organization Address City/[facility] [[email or web address]] Co de Phone Number [facility] [place] [address] * (ABNORMAL) Comprehensive metabolic panel (non-fasting) (05/10/2023 2:28 AM EDT) Glucose 100 65 - 199 mg/dL [facility] Comment:Diabetes: >=200 mg/d L plus symptoms Blood Urea Nitrogen 30(H) 8 - 18 mg/dL [facility] Creatinine 0.90 0.70 - 1.20 mg/dL [facility] Sodium 134(L) 135 - 145 mmol/L [facility] Potassium 4.1 3.5 - 5.0 mmol/L [facility] Comment: Please note: ??Patients with WBC >100,000 may have falsely elevated Potassium levels. ??For accurate Potassium quantification in these patients send serum separator tube (gold top) for subsequent determinations. ??Contact the Clinical Chemistry Laboratory if there are any questions. Chloride 102 98 - 107 mmol/L [facility] Carbon Dioxide 20(L) 22 - 31 mmol/L [facility] Anion Gap 12 5 - 15 mmol/L [facility] Calcium 9.3 8.5 - 10.5 mg/dL [facility] Protein, Total 6.4 6.1 - 8.0 g/dL [facility] Albumin 3.7 3.2 - 5.2 g/dL [facility] Aspartate Aminotransferase 24 0 - 30 unit/L [facility] Alanine Aminotransferase 14 0 - 30 unit/L [facility] Alkaline Phosphatase 70 35 - 105 unit/L [facility] Bilirubin, Total 0.5 0.2 - 1.3 mg/dL [facility] Est Glomerular Filtration Rate 70 >=60 mL/min/1. 73 m?? [facility] Comment: This patient's estimated [...] MD CHEMISTRY ORDERABL ES Performing Organization Address [facility] [[email or web address]] [place] [address] * Heparin (unfractionated) Level (05/10/2023 2:28 AM EDT) Pathologist [facility] UF Heparin 0.37 IU/mL [facility] Comment: [...] MD HEMATOLOGY ORDERAB LES Performing Organization Address [facility] [[email or web address]] [place] [address] * (ABNORMAL) Differential, Automated (05/09/2023 4:00 AM EDT) Neutrophil % 81.7 % [facility] Neutrophil Absolute 5.26 1.70 - 6.10 x10(3)/mc L [facility] Lymph % 10.7 % [facility] Lymphocytes Abs 0.7(L) 0.9 - 3.2 x10(3)/mc L [facility] Monocyte % 6.5 % [facility] Monocyte Abs 0.4 0.3 - 0.9 x10(3)/mc L [facility] Eos % 0.5 % [facility] Eosinophils Abs 0.0 0.0 - 0.4 x10(3)/mc L [facility] Basophil % 0.3 % [facility] Baso Absolute 0.0 0.0 - 0.1 x10(3)/mc L [facility] Immature Gran % 0.30 % [facility] Comment: Immature granulocytes(IG's)percentage and absolute count will include metamyelocytes, myelocytes, and promyelocytes. Blood smears from CBCs yielding IG's will be scanned manually for concordance. If this scan disagrees with the automated IG or if promyelocytes are noted, a manual differential will be performed. Immature Gran Absolute 0.02 0.00 - 0.04 x10(3)/ L [facility] Blood 05/09/2023 4:00 AM EDT 05/09/2023 4:19 AM EDT Narrative Resulting Agency Comment Spec In Lab Klaudia Reid MD HEMATOLOGY OR DERABLES Performing Organization Address City/State/[facility] [[email or web address]] Co de Phone Number [facility] [place] [address] * (ABNORMAL) Hemogram (05/09/2023 4:00 AM EDT) White Blood Cell 6.4 4.0 - 9.5 x10(3)/ L [facility] Red Blood Cell 3.15(L) 4.00 - 5.21 x10(6)/mc L [facility] Hemoglobin 10.2(L) 11.7 - 15.5 g/dL [facility] Hematocrit 30.3(L) 35.7 - 45.8 % [facility] Mean Cell Volume 96.2(H) 82.6 - 94.4 fL [facility] Mean Cell Hemoglobin 32.4(H) 27.1 - 32.0 pg [facility] Mean Cell Hemoglobin Concentration 33.7 31.7 - 35.0 g/dL [facility] Platelet 151 145 - 357 x10(3)/ L [facility] RDW Standard Deviation 44.7 37.0 - 46.0 fL [facility] RDW coefficient of variation 12.8 11.5 - 14.1 % [facility] Mean Platelet Volume 9.4 7.6 - 12.9 fL [facility] NRBC% auto 0.0 % [facility] NRBC Absolute 0.000 0.000 - 0.000 x10(3)/mc L [facility] Blood 05/09/2023 4:00 AM EDT 05/09/2023 4:19 AM EDT Narrative Resulting Agency Comment Spec In Lab Klaudia Reid MD HEMATOLOGY OR DERABLES Performing Organization Address [facility] [[email or web address]] Co de Phone Number [facility] [place] [address] * Heparin (unfractionated) Level (05/09/2023 4:00 AM EDT) UF Heparin 0.47 IU/mL [facility] Comment: Heparin (anti-Xa) levels should be [...] MD HEMATOLOGY ORDERAB LES Performing Organization Address [facility] [[email or web address]] Co de Phone Number [facility] [place] [address] * (ABNORMAL) Comprehensive metabolic panel (non-fasting) (05/09/2023 4:00 AM EDT) Glucose 108 65 - 199 mg/dL [facility] Comment:Diabetes: >=200 mg/d L plus symptoms Blood Urea Nitrogen 31(H) 8 - 18 mg/dL [facility] Creatinine 1.03 0.70 - 1.20 mg/dL [facility] Sodium 137 135 - 145 mmol/L [facility] Potassium 4.4 3.5 - 5.0 mmol/L [facility] Comment: Please note: ??Patients with WBC >100,000 may have falsely elevated Potassium levels. ??For accurate Potassium quantification in these patients send serum separator tube (gold top) for subsequent determinations. ??Contact the Clinical Chemistry Laboratory if there are any questions. Chloride 102 98 - 107 mmol/L [facility] Carbon Dioxide 20(L) 22 - 31 mmol/L [facility] Anion Gap 15 5 - 15 mmol/L [facility] Calcium 9.3 8.5 - 10.5 mg/dL [facility] Protein, Total 6.6 6.1 - 8.0 g/dL [facility] Albumin 3.8 3.2 - 5.2 g/dL [facility] Aspartate Aminotransferase 32(H) 0 - 30 unit/L [facility] Alanine Aminotransferase 18 0 - 30 unit/L [facility] Alkaline Phosphatase 78 35 - 105 unit/L [facility] Bilirubin, Total 0.5 0.2 - 1.3 mg/dL [facility] Est Glomerular Filtration Rate 60 >=60 mL/min/1. 73 m?? [facility] Comment: This patient's estimated [...] Lab Radha Hollins MD CHEMISTRY ORDERABL ES [facility] [place] [address] * (ABNORMAL) pro-Brain Natriuretic Peptide (05/08/2023 4:00 PM EDT) NT-proBNP 25,503(H) <=124 pg/mL [facility] Blood Venous Draw / Unknown 05/08/2023 4:00 PM EDT 05/08/2023 4:25 PM EDT Narrative Resulting Agency Comment Spec In Lab Juan Luis Gonzalez MD CHEMISTRY ORDERABLES [facility] [place] [address] * Magnesium (05/08/2023 4:00 PM EDT) Pathologist [facility] Magnesium 0.82 0.69 - 1.07 mmol/L [facility] Blood 05/08/2023 4:00 PM EDT 05/08/2023 4:06 PM EDT Narrative Resulting Agency Comment Spec In Lab Enrique Chua MD CHEMISTRY ORDERABLES Performing Organization Address [facility]/ZIP Co de Phone Number [facility] [place] [address] * Potassium (05/08/2023 4:00 PM EDT) Pathologist [facility] Potassium 3.9 3.5 - 5.0 mmol/L [facility] Comment: Please note: ??Patients [...] MD CHEMISTRY ORDERABL ES Performing Organization Address City/[facility]/ZIP Co de Phone Number [facility] [place] [address] * Heparin (unfractionated) Level (05/08/2023 4:00 PM EDT) UF Heparin 0.43 IU/mL [facility] Comment: Heparin (anti-Xa) [...] MD HEMATOLOGY ORDERAB LES Performing Organization Address City/State/[facility] [[email or web address]] Co de Phone Number [facility] [place] [address] * EKG 12 Lead (05/08/2023 3:51 PM EDT) Ventricular rate 98 BPM MUSE SYSTEM Atrial Rate 98 BPM MUSE SYSTEM P-R Interval 150 ms MUSE SYSTEM QRS Duration 102 ms MUSE SYSTEM Q-T Interval 358 ms MUSE SYSTEM QTC Calculated (Bezet) 457 ms MUSE SYSTEM Calculated P [place] 38 degrees MUSE SYSTEM Calculated R [place] 48 degrees MUSE SYSTEM Calculated T [place] -112 degrees MUSE SYSTEM INTERPRETATION Sinus rhythm with frequent and consecutive Premature ventricular and fusion complexes Septal infarct , age undetermined ST & T wave abnormality, consider anterolateral ischemia Abnormal ECG When compared with ECG of 09-NOV-2022 11:17, T wave inversion now evident in Anterolateral leads Confirmed by MD Harshil, Enrique Bell ([id number]) on 05/10/2023 8:11:46 AM MUSE SYSTEM 05/08/2023 3:51 PM EDT 05/10/2023 8:11 AM EDT Radha Hollins MD ECG ORDERABLES MUSE SYSTEM * (ABNORMAL) Differential, Automated (05/08/2023 11:38 AM EDT) Neutrophil % 71.3 % [facility] Neutrophil Absolute 2.91 1.70 - 6.10 x10(3)/mc L [facility] Lymph % 19.1 % [facility] Lymphocytes Abs 0.8(L) 0.9 - 3.2 x10(3)/mc L [facility] Monocyte % 9.0 % [facility] Monocyte Abs 0.4 0.3 - 0.9 x10(3)/mc L [facility] Eos % 0.2 % [facility] Eosinophils Abs 0.0 0.0 - 0.4 x10(3)/mc L [facility] Basophil % 0.2 % [facility] Baso Absolute 0.0 0.0 - 0.1 x10(3)/mc L [facility] Immature Gran % 0.20 % [facility] Comment: Immature granulocytes(IG's)percentage and absolute count will include metamyelocytes, myelocytes, and promyelocytes. Blood smears from CBCs yielding IG's will be scanned manually for concordance. If this scan disagrees with the automated IG or if promyelocytes are noted, a manual differential will be performed. Immature Gran Absolute 0.01 0.00 - 0.04 x10(3)/mc L [facility] Blood 05/08/2023 11:3 8 AM EDT 05/08/2023 11:44 AM EDT Narrative Resulting Agency Comment Spec In Lab Lincoln Sal MD HEMATOLOGY ORDERA BLES [facility] [place] [address] * (ABNORMAL) Hemogram (05/08/2023 11:38 AM EDT) White Blood Cell 4.1 4.0 - 9.5 x10(3)/mc L [facility] Red Blood Cell 3.05(L) 4.00 - 5.21 x10(6)/mc L [facility] Hemoglobin 10.2(L) 11.7 - 15.5 g/dL [facility] Hematocrit 29.6(L) 35.7 - 45.8 % [facility] Mean Cell Volume 97.0(H) 82.6 - 94.4 fL [facility] Mean Cell Hemoglobin 33.4(H) 27.1 - 32.0 pg [facility] Mean Cell Hemoglobin Concentration 34.5 31.7 - 35.0 g/dL [facility] Platelet 136(L) 145 - 357 x10(3)/mc L [facility] RDW Standard Deviation 44.3 37.0 - 46.0 fL [facility] RDW coefficient of variation 12.6 11.5 - 14.1 % [facility] Mean Platelet Volume 9.4 7.6 - 12.9 fL [facility] NRBC% auto 0.0 % [facility] NRBC Absolute 0.000 0.000 - 0.000 x10(3)/[facility] Blood 05/08/2023 11:3 8 AM EDT 05/08/2023 11:44 AM EDT Narrative Resulting Agency Comment Spec In Lab Lincoln Sal MD HEMATOLOGY ORDERA BLES Performing Organization Address City/[facility] [[email or web address]] Co de Phone Number [facility] [place] [address] * TSH (05/08/2023 11:38 AM EDT) Thyroid Stimulating Hormone 1.27 0.27 - 4.20 mcIU/mL [facility] Comment: Reference Interval (mcIU/mL): Females: ??First Trimester: 0.23-3.88 ??Second Trimester: 0.22-3.90 ??Third Trimester: 0.44-4.66 Blood 05/08/2023 11:3 8 AM EDT 05/08/2023 11:44 AM EDT Narrative Resulting Agency Comment Spec In Lab Enrique Chua MD CHEMISTRY ORDERABLES [facility] [place] [address] * (ABNORMAL) Phosphorus (05/08/2023 11:38 AM EDT) Phosphorus 4.7(H) 2.5 - 4.5 mg/dL [facility] Blood 05/08/2023 11:3 8 AM EDT 05/08/2023 11:44 AM EDT Narrative Resulting Agency Comment Spec In Lab Enrique Chua MD CHEMISTRY ORDERABLES Performing Organization Address City/[facility] [[email or web address]] Co de Phone Number [facility] [place] [address] * Magnesium (05/08/2023 11:38 AM EDT) Magnesium 0.76 0.69 - 1.07 mmol/L [facility] Blood 05/08/2023 11:3 8 AM EDT 05/08/2023 11:44 AM EDT Narrative Resulting Agency Comment Spec In Lab Enrique Chua MD CHEMISTRY ORDERABLES Performing Organization Address City/[facility] [[email or web address]] Co de Phone Number [facility] [place] [address] * (ABNORMAL) Basic Metabolic Panel (non-fasting) (05/08/2023 11:38 AM EDT) Glucose 97 65 - 199 mg/dL [facility] Comment:Diabetes: >=200 mg/d L plus symptoms Blood Urea Nitrogen 27(H) 8 - 18 mg/dL [facility] Creatinine 1.02 0.70 - 1.20 mg/dL [facility] Sodium 139 135 - 145 mmol/L [facility] Potassium 4.2 3.5 - 5.0 mmol/L [facility] Comment: Please note: ??Patients with WBC >100,000 may have falsely elevated Potassium levels. ??For accurate Potassium quantification in these patients send serum separator tube (gold top) for subsequent determinations. ??Contact the Clinical Chemistry Laboratory if there are any questions. Chloride 105 98 - 107 mmol/L [facility] Carbon Dioxide 20(L) 22 - 31 mmol/L [facility] Anion Gap 14 5 - 15 mmol/L [facility] Calcium 9.4 8.5 - 10.5 mg/dL [facility] Est Glomerular Filtration Rate 60 >=60 mL/min/1. 73 m?? [facility] Comment: This patient's estimated [...] In Lab Enrique Chua MD CHEMISTRY ORDERABLES [facility] [place] [address] * ECHO COMPLETE (05/08/2023 11:02 AM EDT) EF 25 [facility]ART[facility] SYSTEM Anatomical Region Laterality Modality Cardiac Other 05/08/2023 10:0 3 AM EDT Narrative 05/08/2023 11:51 AM EDT ? Echocardiogram Report Name: PURNIMA THACKER ?Study Date: 05/08/2023 10:03 AMBP: 92/64 mmHg ? Patient Location: [facility]^CV29^A : 1955 ? Height: 155 cm ? Account: [id number] Age: 67 yrs ? Weight: 78 kg Gender: Female ?BSA: 1.8 m2 Ordering Physician: ENRIQUE CHUA Referring Physician: MARIO ALBERTO CHIN Performed By: CHUCKIE Canchola Reason For Study: SAVR Stenosis Exam Location: [facility]. Interpretation Summary -Left ventricle is severely [...] worsening stenosis. Mitral regurgitation is similar. Procedure Complete-[id number]. Satisfactory quality. There is normal sinus rhythm. [...] Study Date: 0:03 AMBP: 92/64 mmHg Patient Location:[facility]^CV29^A : 1955 Height: 155 cm Account: [id number] Age: 67 yrs Weight: 78 kg Gender: Female BSA: 1.8 m2 Ordering Physician: ENRIQUE CHUA Referring Physician: MARIO ALBERTO CHIN Performed By: CHUCKIE Canchola Reason For Study: SAVR Stenosis Exam Location: [facility]. Interpretation Summary -Left ventricle is severely [...] suggestsworsening stenosis. Mitral regurgitation is similar. Procedure Complete-[id number]. Satisfactory quality. There is normal sinus rhythm. [...] 9:45 AM EDT) UF Heparin 0.54 IU/mL [facility] Comment: Heparin (anti-Xa) [...] Lab Enrique Chua MD HEMATOLOGY ORDERABLE S [facility] [place] [address] documented in this encounter Visit Diagnoses Diagnosis S/P TAVR (transcatheter aortic valve replacement)- Primary Aortic valve stenosis, etiology of cardiac valve disease unspecified Heart failure with reduced ejection fraction due to heart valve disease Mild coronary artery disease by [facility] 11/09/2022 Mixed connective tissue disease [...] ejection fraction Mild coronary artery disease by [facility] 11/09/2022 Stenosis of prosthetic aortic [...] dose on Wed05/12/23 at 1030, Until Discontinued, [place] teeth, Routine Given 05/12/2023 10:04 AM EDT [...] CONTINUOUS, Starting on Wed05/12/23 at 0200, Until [place] 05/16/23 at 1026, All adjustments must be [...] at 0831, Side port TKO rate, per [facility] flush protocol. Rate/Dose Verify 05/17/2023 8:00 [...] Until Discontinued, Routine 0029 (Given - Provider: Favina Mckeon RN)013 (Not Given - Provider: Favian [...] documented in this encounter Care Teams Machine Maintenance Technician Relationship Specialty Start Date End Date Magdalena Acosta MD [address] [place] [address] PCP - General Family Medicine 02/05/23 documented as of this encounter
--- OUTSIDE RECORDS SUMMARY | 2024-03-28 14:28 | XMS_ITS | Encounter Summary ---
Author Organization [place] [id number] Care Team Providers Care Basting Machine Operator Name Role Phone Magdalena Acosta MD Primary Care Provider [phone] Reason for Visit * Auth/Cert (Routine) Specialty Diagnoses / Procedures Referred By Contac t Referred To Contact Diagnoses Symptomatic severe aortic stenosis with low ejection fraction NSTEMI, CHF Haris Chua MD [facility] [place] [address] [facility] Referral ID Status Reason Start Date Expiration Date Visits Re quested Visits Authorized [id number] 1 1 Encounter Details Date Type Department Care Team (Late st Contact Info) Description 05/12/2023 7:35 AM EDT Anesthesia Event [place] [address] Lynda Mcgowan MD [facility] DR [place] [address] Alie Park MD [facility] [place] [address] Anesthesia Record Procedure Summary Procedure Name Responsible [...] cephalic vein (lateral side of arm), left; [id number] catheter system; Anatomical Landmarks; US Not Used; [...] RN LDA Cath/EP Sheath 05/12/23; 0733; 14 German (Fr); Right; Femoral; Arterial 05/12/23 0733 by Guerda Bender, RN 05/12/23 0830 by Guerda Bender RN LDA Cath/EP Sheath 05/12/23; 0734; 6 German (Fr); Right; Femoral; Venous 05/12/23 0734 by Guerda Bender RN 05/12/23 0817 by Guerda Bender RN LDA Cath/EP Sheath 05/12/23; 0734; 7 German (Fr); Left; Femoral; Arterial 05/12/23 0734 by Guerda Bender, RN 05/12/23 0837 by Guerda Bender RN LDA Cath/EP Sheath 05/12/23; 0734; 6 German (Fr); Left; Femoral; Venous 05/12/23 0734 by Gureda Bender RN 05/12/23 0838 by Guerda Bender [...] Procedure Summary Date: 05/12/23 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 Mild coronary artery disease by [facility] 11/09/2022 05/08/2023 ??? Heart failure [...] S&I N/A 11/09/2022 CORONARY ANGIOGRAPHY; W [facility],POSSIBLE PCI (WRVU 5.6) performed by Nitesh Escobedo MD at [facility] CATH [facility]S ??? PRO AORTOPLAS FOR SUPRAVALV STEN N/A 09/21/2016 @AORTOPLASTY FOR SUPRAVALVULAR STENOSIS (WRVU 29.33) performed by Alirio Esparza MD at [facility] MAIN OR ??? PRO REPLACEMENT PROSTHETIC AORTIC VALVE OPEN W CARDIOPULMONARY BYPASS HOMOGRF/STENT N/A 09/21/2016 @REPLACE AORTIC VALVE, OPEN, W\CPB, W\PROSTHETIC VALVE (WRVU 41.32) performed by Alirio Esparza MD at [facility] MAIN OR Social History Tobacco Use ??? [...] 3 general, with a(n) intravenous induction Add-on [id number] TAVR. In cardiogenic shock. Has arterial line, [...] 4:15 PM EDT Office Visit Dermatology at [facility] [address] [place] [phone] Marek Bonilla MD [address] [place] [address] documented as of this encounter Visit Diagnoses [...] mL/hr documented in this encounter Care Teams Basting Machine Operator Relationship Specialty Start Date End Date Magdalena Acosta MD [address] [place] [address] PCP - General Family Medicine 02/05/23 documented as of this encounter
--- OUTSIDE RECORDS SUMMARY | 2024-03-28 14:28 | XMS_ITS | Encounter Summary ---
[place] [address] Care Team Providers Care Production Analyst Name Role Phone Magdalena Acosta MD [...] 4:15 PM EDT Office Visit Dermatology at [facility] [address] [place] [address] Marek Bonilla MD [address], [place] A DERMATOLOGY [place], [place] [id number] documented as of this encounter Visit Diagnoses Not on filedocumented in this encounter Care Teams Production Analyst Relationship Specialty Start Date End Date Magdalena Acosta MD [address] [place] [address] PCP - General Family Medicine 02/05/23 documented as of this encounter
--- OUTSIDE RECORDS SUMMARY | 2024-03-28 14:29 | XMS_ITS | Encounter Summary ---
Author Organization Replaced By [facility] [place] [address] Care Team Providers Care Launderer Hand Name Role Phone Magdalena Acosta MD Primary Care Provider [phone] Encounter Details Date Type Department Care Team (Latest Contact Info) Description 02/05/2023 9:33 PM EDT - 02/05/2023 11:59 PM EDT Hospital [place] [id number] Discharge Disposition: Home Social History Tobacco Use [...] 4:15 PM EDT Office Visit [facility] [place] [address] [place] [address] Marek Bonilla MD [address] [facility] [place] [address] documented as of this encounter Procedures Procedure Name Priority Date/Time Associated Diagnosis Comments SURGICAL PATHOLOGY REPORT Routine 02/05/2023 3:00 PM EDT documented in this encounter Results * Surgical Pathology Report (02/05/2023 3:00 PM EDT) Final Diagnosis [id number] ? Location: [facility] The signing pathologist has (i) examined the relevant preparation(s) for the specimen(s) and (ii) rendered or confirmed the diagnosis(es). . ?Surgical Pathology DIAGNOSIS Left upper back, skin punch biopsy: - ??Compound dysplastic ??melanocytic nevus with moderate atypia, transected at peripheral specimen edges ?? (see discussion) Electronically signed by: ?Vanna CULP, Jesse Shields Verified: ??02/16/2023 8:04 ?? Dermatopathologist Performed at: ??-[facility] Dept. of Pathology, [place] [address] Visual Inspector: Kunal Rubi MD, FCAP, ??CLIA Certificate: [id number] DISCUSSION If there is an obvious clinical [...] EDT Marek Bonilla MD PATHOLOGY/CYTOLOGY O RDERABLES [facility] [place] [address] [facility] [place] [address] documented in this encounter Visit Diagnoses Not on filedocumented in this encounter Care Teams Launderer Hand Relationship Specialty Start Date End Date Magdalena Acosta MD [address] [place] [address] PCP - General Family Medicine 02/05/23 documented as of this encounter
--- OUTSIDE RECORDS SUMMARY | 2024-03-28 14:29 | XMS_ITS | Encounter Summary ---
[facility] [place] [address] Care Team Providers Care Sports Doctor Name Role Phone Magdalena Acosta MD Primary Care Provider [phone] Reason for Visit * Auth/Cert (Routine) Specialty Diagnoses / Procedures Referred By Contac t Referred To Contact Diagnoses Symptomatic severe aortic stenosis with low ejection fraction NSTEMI, CHF Enrique Chua MD [facility] [place] [address] [facility] Referral ID Status Reason Start Date Expiration Date Visits Re quested Visits Authorized [id number] 1 1 Encounter Details Date Type Department Care Team (Late st Contact Info) Description 05/12/2023 2:50 PM EDT - 05/12/2023 3:50 PM EDT Surgery [place] [address] Antelmo Sharma MD [facility] [place] [address] CARDIAC CATHETERIZATION Social History Tobacco Use Types [...] Patient Age: 67 y.o. Birthdate: 1955 Language: Peruvian Race: White Ethnicity: Not nor Admit Date: 05/08/2023 Discharge Date: 05/22/2023 Attending Physician: Alirio Hudson MD Follow-up Recommendations for Providers: Please continue routine management of cardiovascular risk factors including blood pressure, lipids,glucose, etc. Please note any medication changes. Patient to follow up with PCP, Magdalena Acosta MD, or Primary Computer Repair Engineer, Avis Mejia MD, in ~ 7-10 days. Patient to follow up with Product Technology Scientist, Dr. Antelmo Sharma, in 2 weeks with an EKG, Echo, CBC, and CMP. Patient to follow up with Nephrology, their office to arrange. Loxk-Iawwiu-jp interval: After initial 30 day follow-up appointment , all TAVR patients will follow-up again in one year with an echo. Inpatient Provider Contact Information: 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 Secondary Diagnoses: Active Hospital Problems Diagnosis S/P TAVR (transcatheter aortic valve replacement) Cardiogenic shock Symptomatic severe aortic stenosis with low ejection fraction Mild coronary artery disease by [facility] 11/09/2022 Heart failure with reduced ejection fraction [...] Tube Placement Right 05/18/2023 Laure Ricks PA [facility] INTERVENTIONL RAD PRG CATH PLMT LEFT HEART CATH & ARTS W/INJ & ANGIO IMG S&I N/A 11/09/2022 CORONARY ANGIOGRAPHY; W [facility],POSSIBLE PCI (WRVU 5.6) performed by Mario Alberto Escobedo MD at [facility] CATH LABS PRG COMBINED RIGHT & LEFT HEART CATH W/INJ L VENTRICULOGRAPHY, IMG S&I N/A 05/12/2023 COMBINED RIGHT & LEFT HEART CATH,INC INJ FOR L VENTRICULOGRAPHY (WRVU 5.99) performed by Antelmo Sharma MD at [facility] CATH LABS PRO AORTOPLAS FOR SUPRAVALV STEN N/A 09/21/2016 @AORTOPLASTY FOR SUPRAVALVULAR STENOSIS (WRVU 29.33) performed by Alirio Hudson MD at [facility] MAIN OR PRO REPLACE AORTIC VALVE (TAVR/FEDERICO)PERC FEMORAL ARTERY APPROACH 05/12/2023 @TRANSCATHETER AORTIC VALVE REPLACEMENT (TAVR), PERCUTANEOUS FEMORAL (WRVU 22.47) performed by Alirio Hudson MD at [facility] CATH LABS PRO REPLACEMENT PROSTHETIC AORTIC VALVE OPEN W CARDIOPULMONARY BYPASS HOMOGRF/STENT N/A 09/21/2016 @REPLACE AORTIC VALVE, OPEN, W\CPB, W\PROSTHETIC VALVE (WRVU 41.32) performed by Alirio Hudson MD at [facility] MAIN OR [...] Major Procedures/Operations: 05/12/23: Successful right transfemoral TAVR Zbpfx-gd-Oenji with a 23 mm Lai 3 THV. Left coronary protection with left main MINNA. Hospital Course: #Severe prosthetic s/p valve in valve TF TAVR #Low coronary heights s/p left main stent for coronary protection #Type 2 NSTEMI, present on arrival, resolved #Acute decompensated HFrEF #Cardiogenic shock #EVANS / Cardiorenal syndrome Purnima Thacker was admitted to [facility] on 05/08/2023 via the Cardiology Service with [...] TAVR and she was brought to the shellfish processing laborer the following morning where Drs. Alirio [...] if you have questions. Please call your Product Technology Scientist's office if you have any discharge or drainage from your procedural sites. Your Product Technology Scientist, Dr. Antlemo Sharma and/or the Tab Card Press Operator may be reached at . Antibiotic prophylaxis: You will need to take antibiotics prior to many invasive tests and treatments, such as dental cleaning, which should be done every 6 months. Your primary care physician or your dentist can prescribe this medication. Please refer to the card with the [place] [employer] Guidelines for more information. You have been provided with a copy of this card. Please refer to the [place] [employer] Guidelines for more information. Good [...] friends, go to a movie, go to pentecostal, etc. Heavy activities: No hunting, skiing, jogging, [...] should resume a low fat, low cholesterol, [place] Diet Driving: No restrictions. Shower/Bath: You may shower daily. No baths, soaking, or swimming for the first week. Wound care: Wash the sites daily with soap and rinse well, pat dry. Assess for any signs of infection such as increased redness, pain, warmth or drainage. Please call your tentering machine feeder's office if you have any discharge or drainage from your procedural sites. If there is a lot of swelling, apply mamta wraps during the day and remove at bedtime. Elevate your legs when you are sitting. Home oxygen therapy: N/A Follow up appointments: Please schedule a follow-up appointment with your PCP, Magdalena Acosta MD, or Primary Computer Repair Engineer in ~ 7-10 days. You have a follow-up appointment with your Product Technology Scientist, Dr. Antelmo Sharma, in 2 weeks with an EKG, Echo, and labs prior to your appointment. You will need follow-up with Nephrology, their office will arrange. Tdxi-Rimgiw-rb interval: After initial 30 day follow-up appointment , all TAVR patients will follow-up again in one year with an echo. Cardiac Rehabilitation: Purnima Thacker was seen today regarding participation in the outpatient Phase 2 Cardiac Rehabilitation at [facility]. The patient agrees to a referral to this program. The referral will be sent at discharge and the patient should be contacted by the Program within 1- 2 weeks from discharge. Future Appointments and Orders Future Appointments and Orders Future Appointments Provider Department Dept Phone 07/29/2023 11:00 AM Magdalena Peralta MD Rheumatology at [facility] Arrive at: [facility] Area [address] [phone] 02/11/2024 2:00 PM Marek Bonilla MD Dermatology at [facility] Arrive at: [facility] [address] [phone] Future Orders Complete By Expires Type and Screen Future Surgery, [facility] SAME DAY PROGRAM ONLY) [YUF0646 Custom] 05/11/2023 Process Instructions: This test is intended ONLY for patients with upcoming surgery for testing prior to the day of surgery obtained through the same day program (4V or SDP). For ALL OTHER PATIENTS, order a Type and Screen (HNF295) This order includes the physician order for an ABO Recheck if requested by the Blood Bank. Scheduling Instructions: Comments: Questions: Date of surgery: CBC (with Diff) [RIY035 Custom] 06/05/2023 12/05/2023 Process Instructions: INCLUDES: WBC, RBC, Hgb, Hct, Platelets, RBC Indices and Differential Scheduling Instructions: Comments: Questions: Comprehensive metabolic panel (non-fasting) [LAB17 Custom] 06/05/2023 08/20/2023 Process Instructions: INCLUDES: Calcium, T Protein, Albumin, AST, ALT, Alk Phos, T Bili, BUN, Creat, GFR, Glucose, Lytes. Scheduling Instructions: Comments: Questions: Echocardiogram Transthoracic [33621 CPT(R)] 06/05/2023 12/05/2023 Process Instructions: Scheduling Instructions: Questions: Where will study be performed?: [facility] Does the patient have Congenital Heart Disease?: Does patient require sedation?: [place] rationale: EKG 12 Lead [98015 CPT(R)] 06/05/2023 12/05/2023 Process Instructions: Scheduling Instructions: Questions: Which location will this be performed?: [place] Is a rhythm strip needed?: No [facility] [EQ161 Custom] As directed Process Instructions: Scheduling Instructions: Questions: Device Needed: WALKER (E0143) Patient Height (cm): 154.9 cm (5' 0.98) Patient Weight: 75.4 kg (166 lb 3.2 oz) Diagnosis: Unsteady gait when walking Referral to Cardiac Rehab [PXG725 Custom] As directed Process Instructions: If no progress note charted, please enter Clinical details in comments. Scheduling Instructions: Questions: My question or request is: s/p TAVR. Cardiac rehab at [facility]. Referral to Home Health [REF34 Custom] As directed Process Instructions: If no progress note charted, please enter Clinical details in comments. Scheduling Instructions: Comments: DOCUMENTATION FOR VNA SERVICES PATIENT'S LOCATION: Purnima Thacker [address] [place] [address] [phone] (home) Level Glass Vial Filler's Name: Irineo and brother Raymond In discussion with the attending physician, it is certified that this patient is under his/her careand that MD, or an JOB PRESS OPERATOR, POSTAL CLERK, or PA who is working directly with him/her, had a zdcs-ay-klgq encounter that meets the physician wkjx-kp-qcrm encounter requirements with this patient on 05/22/2023. [...] for managing ADLs. HOME HEALTH CARE AGENCY: [facility]. [address] [facility] [address] PHONE: [phone] FAX: [phone] Start of care: Ideally 24-48 hours after [...] Magdalena Acosta MD [address] / [facility] [phone] All VNA agencies which cover the area of patient's residence have been reviewed, either verbally joao writing, and patient has chosen the home health care agency noted. Questions: Disciplines Requested: Physical Therapy Occupational Therapy Discharge References/Attachments None Arrangements for VNA/home care: As above. (delete if no VNA) Signed: EKATERINA NAVARRETE [facility] Section of Cardiac Surgery Date: 05/22/2023 CC: Magdalena Acosta MD JerseyMario Alberto maxwell MD [address] [place] [address] documented in this encounter Discharge Instructions * Patient Instructions* Vinod Juárez PA - 05/22/2023 9:32 AM EDT TAVR Discharge Instructions: Call your doctor if: You have a fever of greater than 101 degrees, shaking chills, if you develop redness or drainage from your procedure sites, or if you have questions. Please call your Product Technology Scientist's office if you have any discharge or drainage from your procedural sites. Your Product Technology Scientist, Dr. Antelmo Sharma and/or the Tab Card Press Operator may be reached at . Antibiotic prophylaxis: You will need to take antibiotics prior to many invasive tests and treatments, such as dental cleaning, which should be done every 6 months. Your primary care physician or your dentist can prescribe this medication. Please refer to the card with the [place] [employer] Guidelines for more information. You have been provided with a copy of this card. Please refer to the [place] [employer] Guidelines for more information. Good [...] friends, go to a movie, go to pentecostal, etc. Heavy activities: No hunting, skiing, jogging, [...] should resume a low fat, low cholesterol, [place] Diet Driving: No restrictions. Shower/Bath: You may shower daily. No baths, soaking, or swimming for the first week. Wound care: Wash the sites daily with soap and rinse well, pat dry. Assess for any signs of infection such as increased redness, pain, warmth or drainage. Please call your tentering machine feeder's office if you have any discharge or drainage from your procedural sites. If there is a lot of swelling, apply mamta wraps during the day and remove at bedtime. Elevate your legs when you are sitting. Home oxygen therapy: N/A Follow up appointments: Please schedule a follow-up appointment with your PCP, Magdalena Acosta MD, or Primary Computer Repair Engineer in ~ 7-10 days. You have a follow-up appointment with your Product Technology Scientist, Dr. Antelmo Sharma, in 2 weeks with an EKG, Echo, and labs prior to your appointment. You will need follow-up with Nephrology, their office will arrange. Gdaa-Airmnv-ae interval: After initial 30 day follow-up appointment , all TAVR patients will follow-up again in one year with an echo. Cardiac Rehabilitation: Purnima Gallegol was seen today regarding participation in the outpatient Phase 2 Cardiac Rehabilitation at [facility]. The patient agrees to a referral to [...] ins ( tef) Haven Ba, PT Pager: [phone] Physical Therapy Inpatient Rehabilitation Department * Nico [...] 0600 and on the weekends please page [phone]. * Jory Paniagua - 05/20/2023 3:52 PM [...] no vomiting Last Bowel Movement: 05/20/23 Jory Pnaiagua Manager Business Development Hospice * Tong Mike, OT - 05/20/2023 3:16 [...] Tube Placement Right 05/18/2023 Laure Ricks PA [facility] INTERVENTIONL RAD PRG CATH PLMT LEFT HEART CATH & ARTS W/INJ & ANGIO IMG S&I N/A 11/09/2022 CORONARY ANGIOGRAPHY; W [facility],POSSIBLE PCI (WRVU 5.6) performed by Mario Alberto Escobedo MD at [facility] CATH LABS PRG COMBINED RIGHT & LEFT HEART CATH W/INJ L VENTRICULOGRAPHY, IMG S&I N/A 05/12/2023 COMBINED RIGHT & LEFT HEART CATH,INC INJ FOR L VENTRICULOGRAPHY (WRVU 5.99) performed by Antelmo Sharma MD at [facility] CATH LABS PRO AORTOPLAS FOR SUPRAVALV STEN N/A 09/21/2016 @AORTOPLASTY FOR SUPRAVALVULAR STENOSIS (WRVU 29.33) performed by Alirio Hudson MD at [facility] MAIN OR PRO REPLACE AORTIC VALVE (TAVR/FEDERICO)PERC FEMORAL ARTERY APPROACH 05/12/2023 @TRANSCATHETER AORTIC VALVE REPLACEMENT (TAVR), PERCUTANEOUS FEMORAL (WRVU 22.47) performed by Alirio Hudson MD at [facility] CATH LABS PRO REPLACEMENT PROSTHETIC AORTIC VALVE OPEN W CARDIOPULMONARY BYPASS HOMOGRF/STENT N/A 09/21/2016 @REPLACE AORTIC VALVE, OPEN, W\CPB, W\PROSTHETIC VALVE (WRVU 41.32) performed by Alirio Hudson MD at [facility] MAIN OR Social History: Patient lives alone. Home Setup: Pt lives on one level with tub shower and three steps to enter. DME: none used MOLD [employer]ER Baseline ADL/Mobility: Independent with ADLs and IADLs. [...] awareness: WFL Vision & Perception: corrective lenses electrical worker Communication: WFL Range of motion, strength, coordination: [...] Discharge planning. Total Minutes, Occupational Therapy: 28 (7621-0961) OT Evaluation Code Rationale: Diagnosis & Pertinent Co-Morbidities affecting Plan of Care: see PMHx Occupational Profile & Client History: Brief Expanded Extensive x Assessment of Occupational Performance: 1-3 performance deficits 3-5 performance deficits x 5 + performance deficits Clinical Decision Making: Low Moderate High x Clinical decision making of moderate complexity using standardized patient assessment instrument and measurable assessment of functional outcome. Pager: [phone] TONG MIKE OT 05/20/2023 Occupational Therapy Rehabilitation [...] 0600 and on the weekends please page [phone]. * Ryile Rodriguez MD - 05/19/2023 3:59 PM EDT [...] Overall, patient's renal function has improved. Ms. Thakcer will require establishment of nephrology outpatient care [...] and plan. Cynthia Blackburn MD Nephrology Pager: [phone] * Diana Espino - 05/19/2023 1:49 PM EDT Home Health Manager Encounter Note Patient Name: Purnima Thacker : [id number] MR#: [id number] Admit Date: 05/08/2023 9:14 AM Hospital Day [...] as stated. Total Minutes, Physical Therapy: 38 (0385-1058) Henrik Navarrete PTA Pager: [phone] Physical Therapy Inpatient Rehabilitation Department * Nico [...] 0600 and on the weekends please page [phone]. * Laure Ricks PA - 05/19/2023 7:56 [...] Ricks PA-C Interventional Radiology IR Team Pager [phone] * Consuelo Espinoza RN - 05/18/2023 4:13 PM EDT ANGIO NURSING DATABASE Name: Purnima Thacker Date of : 1955 AGE: 67 y.o. Address: [address] [place] [address] (home) Mobile: No relevant phone numbers on [...] Mild coronary artery disease by [facility] 11/09/2022 I25.10 Heart failure with reduced ejection [...] Purnima Thacker : 1955 Interval History: Ms. Thacekr is a 67 yo F with PMH [...] and plan. Cynthia Blackburn MD Nephrology Pager: [phone] * Magdalena Puri, REHEATER HELPER - 05/18/2023 10:51 AM EDT Images from the original note were not included. [facility] [place] [id number] STRUCTURAL HEART DISEASE CONSULTATION NOTE PRIMARY CARE [...] stenosis. She is now status post TAVR Bxwau-ai-Ltout with a 23 mm Lai 3 THV 05/12/[address] Sharma. Preliminary findings: Successful right transfemoral TAVR Robow-xe-Mioyx with a 23 mm Lai 3 THV. [...] ejection fraction Mild coronary artery disease by [facility] 11/09/2022 Heart failure with reduced ejection fraction [...] tablet 81 mg 81 mg Oral Daily FairlandMara ernandez APRN 81 mg at 05/18/23 0826 ondansetron (pf) (Zofran) (2 mg/mL) injection 4 mg 4 mg Intravenous Q8H PRN FairlandMara ernandez APRN4 mg at 05/12/23 0736 pantoprazole EC (Protonix) tablet 40 mg 40 mg Oral Daily MaggieMara ernandez APRN 40 mg at 05/18/23 0826 Or pantoprazole (Protonix) injection 40 mg 40 mg Intravenous Daily FairlandMara ernandez APRN 40 mg at 05/12/23 1004 senna-docusate (Pericolace) 8.6-50 mg per tablet 2 tablet 2 tablet Oral Daily MaggieMara ernandez APRN 2 tablet at 05/16/232111 bisacodyL (Dulcolax) suppository 10 mg 10 mg Rectal Daily PRN MaggieMara ernandez APRN melatonin tablet 6 mg 6 mg Oral Nightly PRN FairlandMara ernandez APRN 6 mg at 05/17/232024 influenza vaccine adjuvanted (Adult 65 Yrs +) (FluAD Quad) (PF) IM injection 0.5 mL 0.5 mL Intramuscular Prior to discharge FairlandMara ernandez APRN FAMILY HISTORY: No family history [...] stenosis. She is now status post TAVR Kbzeu-ds-Dxvsw with a 23 mm Lai 3 THV [...] Magdalena Puri APRN Structural Heart Team Pager [phone] Team Office Please see addendum by Dr. Sharma for final plan and recommendations Associated attestation - Antelmo Sharma MD - 05/19/2023 10:52 PM EDT I have reviewed Magdalena Puri APRN's above history and I agree with the details as written. The assessment and plan were formulated in discussion with me and I agree with them as documented. Antelmo Sharma MD Pager [phone] * Nico Palacios PA - 05/18/2023 8:13 [...] 0600 and on the weekends please page [phone]. * Loli Hernandez, PT - 05/17/2023 5:27 [...] plan as stated. Time IN / OUT: 3061-2539 Total Minutes, Physical Therapy: 54 Billing Code: te-sx2, te-f, angely HERNANDEZ PT Pager: [phone] Physical Therapy Inpatient Rehabilitation Department * Cynthia [...] Well controlled. Cynthia Blackburn MD Nephrology Pager: [phone] * Mara Serrano, REHEATER HELPER - 05/17/2023 8:26 AM EDT Cardiac Surgery [...] 0600 and on the weekends please page [phone]. * Guerda Del Valle C - 05/16/2023 10:44 AM EDT Nutrition Services Note - Low Nutrition Acuity Purnima Thacker is a 67 y.o. female Reason for intervention: hospital day 9 Nutrition Plan: Continue diet order Encourage good PO Lasix and Zofran noted Added special serve: open containers Monitor weight Patient scheduled for a hospital day 9 nutrition evaluation. Tubing Machine Tender met with pt at bedside. Pt reports that her appetite and PO has much improved since admission. Denies nausea/vomiting or trouble chewing/swallowing. Tubing Machine Tender provided snack list but pt not interested in adding snacks at this time. Her only concern was that she is worried that she will eat too much which will cause too much pressure in her stomach. Tubing Machine Tender assured pt and suggested eating smaller but [...] Last Bowel Movement: 05/10/23 Guerda Del Valle Manager Business Development Hospice * Vinod Juárez PA - 05/16/2023 10:19 [...] 0600 and on the weekends please page [phone]. * Michael Jeffers MD - 05/16/2023 8:11 AM EDT Images from the original note were not included. Hypertension-Nephrology Inpatient Follow-up Purnima Thacker [id number] 1955 ID: 67 y.o. old female seen [...] IRONSAT 12 (L) 05/16/2023 SFOLATE >20.0 07/03/2022 [id number] 07/03/2022 Lab Results Component Value Date [...] Dr. Ayoub. Please contact me at phone: [phone] or pager: [phone] with any questions. Michael Jeffers MD Nephrology [...] -Nephrology consulted, labs and renal US ordered -Clare removed, ambulated around the unit -bilateral pleural [...] 0600 and on the weekends please page [phone]. * Hortencia Cody MD - 05/15/2023 2:07 [...] not included. Hypertension-Nephrology Inpatient Follow-up Purnima Thacker [id number] 1955 ID: 67 y.o. old female seen [...] HGB 7.8 (L) 05/13/2023 SFOLATE >20.0 07/03/2022 [id number] 07/03/2022 Lab Results Component Value Date [...] Dr. Ayoub. Please contact me at phone: [phone] or pager: [phone] with any questions. Michael Jeffers MD Nephrology [...] last 720 hours. T/L/D Art ETT CVL [place] ASSESSMENT, MANAGEMENT, and DECISION MAKIN y.o. female [...] outlined inthis evaluation. HAVEN BA, PT Pager: [phone] Physical Therapy Inpatient Rehabilitation Department Time IN / OUT: 6085-0426 Total time: Total Minutes, Physical Therapy: 30 [...] 0600 and on the weekends please page [phone]. * Antelmo Sharma MD - 05/14/2023 7:56 AM EDT Images from the original note were not included. [facility] [place] [phone] STRUCTURAL HEART DISEASE CONSULTATION NOTE PRIMARY CARE [...] stenosis. She is now status post TAVR Clajf-eh-Uschm with a 23 mm Lai 3 THV 05/12/[address] Sharma. Preliminary findings: Successful right transfemoral TAVR Ixkqx-ta-Bgyrv with a 23 mm Lai 3 THV. [...] perforation. Interval Events: - 05/12 Transferred to [facility] post- TAVR for pressor/inotropic support (Levo, [...] ejection fraction Mild coronary artery disease by [facility] 11/09/2022 Heart failure with reduced ejection fraction [...] stenosis. She is now status post TAVR Armkf-mi-Ihpzl with a 23 mm Lai 3 THV 05/12/[address] Sharma. Janet TAVR case notable for coronary LAD protective MINNA. Status post TAVR, the patient was transferred to [facility] for pressor and inotropic support. Pressors [...] Brody Kaplan APRN Structural Heart Team Pager [phone] Team Office Please see addendum by Dr. [...] exposure. Nephrology consultationtoday. Antelmo Sharma MD Pager [phone] * Antelmo Cardenas RN - 05/14/2023 5:18 AM EDT Pt AOx4, complaining of mild/moderate generalized pain (states her Meloxicam is effective at home) currently refusing prn oxycodone. NAEON, hemodynamically stable on Milrinone, Maps >65, ST in upt805's down to NSR with frequent multifocal PVC's. [...] from the original note were not included. [facility] [place] [phone] STRUCTURAL HEART DISEASE PROGRESS NOTE PRIMARY CARE [...] stenosis. She is now status post TAVR Hjkjh-et-Avcpt with a 23 mm Lai 3 THV 05/12/[address] Sharma. Preliminary findings: Successful right transfemoral TAVR Yolzv-op-Nmupc with a 23 mm Lai 3 THV. [...] ejection fraction Mild coronary artery disease by [facility] 11/09/2022 Heart failure with reduced ejection fraction [...] disease Assessment and Plan: Patient ID: Purnima Thakcer is a 67 y.o. 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 She is now status post TAVR Hyovq-nl-Eyrnf with a 23 mm Lai 3 THV 05/12/[address] Sharma. Janet TAVR case notable for coronary LAD protective MINNA. Status post TAVR, the patient was transferred to [facility] for pressor and inotropic support. Pressors [...] Brody Kaplan APRN Structural Heart Team Pager [phone] Team Office Please see addendum by Dr. [...] DAPT moving forward. Antelmo Sharma MD Pager [phone] * Bonita Miguel PA - 05/13/2023 8:30 AM EDT Cardiac Surgery Progress Note Purnima Thacker is a 67 y.o. 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 PMH of s/p tissue AVR (2017), mixed connective tissue disease HTN, HLD, NICOLAS, diverticulosis, rosacea, essential tremor, and depression. 24h Events: From shellfish processing laborer for above procedure Extubated at ~1600 [...] soft b/l, no evidence of hematoma. Tubes/Lines/Drains: Clare, RIJ, A-line, Art, PIV Assessment/Plan: 67 y.o. [...] 0600 and on the weekends please page [phone]. * Onelia Schwartz MD - 05/12/2023 1:44 [...] ejection fraction Mild coronary artery disease by [facility] 11/09/2022 Heart failure with reduced ejection fraction [...] FiO2 weaned to 40%. 1105: ABG 7.34/42/73/22 1777-2638: SBT performed and passed on these settings [...] PCP: Magdalena Acosta MD PCP phone number: [phone] Date of Admission: 05/08/2023 ( Hospital Day [...] 1447 PHART -- 7.34* 7.34* -- -- [id number] -- 30* 30* -- -- PO2ART -- 72* 81* -- -- SWN0CMH -- 16.0* 15.7* -- -- LACTATEVEN 2.4* 2.7* 2.7* 4.8* 2.9* VBG (Venous Blood Gas) Recent Labs 05/12/23 0700 05/12/238 05/12/2310505/11/23193905/11/23 144 LACTATEVEN 2.4* 2.7* 2.7* 4.8* 2.9* Mixed Venous Sat Recent Labs 05/12/23 0508 05/12/23 0321 05/12/23 0114 05/12/23 0030 G2FDBZ2 30.7 32.7 37.3 25.1 Objective: Vitals Last [...] who have questions please contact the health client care manager that requested your imaging first. Electronically signed by: ALIX RUVALCABA MD, [facility] ([phone]), at 05/10/2023 1:[address] Cardiac for [...] who have questions please contact the health client care manager that requested your imaging first. Electronically signed by: Cullen Narayanan MD, [facility] ([phone]), at 05/11/2023 4:[address] Angiogram Abdomen [...] who have questions please contact the health client care manager that requested your imaging first. Electronically signed by: Eileen Gomes MD, [facility] ([phone]), at 05/11/2023 2:42 PM XR Chest One [...] who have questions please contact the health client care manager that requested your imaging first. Electronically signed by: Will Rowe MD, [facility] ([phone]), at 05/11/2023 11:57 PM XR Chest One [...] who have questions please contact the health client care manager that requested your imaging first. Electronically signed by: Will Rowe MD, [facility] ([phone]), at 05/12/2023 3:16 AM Assessment & Plan: [...] and inotrope. She is planned for a ofxwf-po-ntvqt TAVR this morning, which should hopefully improve [...] FACP, FACC Section of Cardiovascular Medicine [facility] Penal Officerhorse trader [facility] [employer] [facility] * Noreen Deutsch RN - 05/12/2023 [...] ejection fraction Mild coronary artery disease by [facility] 11/09/2022 Heart failure with reduced ejection fraction [...] 05/11/2023 4:11 PM EDT Reported off to SHARK BIOLOGIST and pt transferred over in the bed for higher level of care. * Antelmo Sharma MD - 05/11/2023 9:45 AM EDT Images from the original note were not included. [facility] [place] [id number] STRUCTURAL HEART DISEASE CONSULTATION NOTE PRIMARY CARE [...] who had been referred for possible TAVR epefm-ky-nuusi evaluation. Her primary symptoms are of dyspnea [...] otherwise negative. Ms. Thacker is originally from [facility]. 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 She states that, [...] ejection fraction Mild coronary artery disease by [facility] 11/09/2022 Heart failure with reduced ejection fraction [...] hour(s)) Lactate, whole blood, send to lab ([facility]) Result Value Ref Range Lactate WB 3.1 (H) 0.5 - 2.2 mmol/L Heparin (unfractionated) Level Result Value Ref Range Heparin UFH Level 0.46 IU/mL Lactate, whole blood, send to lab ([facility]) Result Value Ref Range Lactate WB 1.8 [...] leads Confirmed by MD Harshil, Enrique Bell ([id number]) on 05/10/2023 8:11:46 AM Cardiac Cath 11/09/2022 [...] alert Dr. Hudson of her inpatient status, [place] primary cardiac surgeon. Based on recent clinic visit, tentative plan had been for TAVR JANET issa ferrera given her chronological age. Cardiac cath 11/09/2022 notable for non-obstructive coronary disease. TAVR CTAs planned for today. Will review her case with cardiac surgery to determine best timing and therapies for her valve intervention. Addendum 05/11/2023 6:48 PM Due to decompensating HFrEF, she was transferred to [facility] this afternoon for further management. TAVR CT imaging support for adequate ileofemoral access. Given her acute deterioration today, will planfor RTF TAVR on 05/12/2023. Brody Kaplan APRN Structural Heart Disease Pager [phone] Please see addendum by Dr. Sharma for [...] signed and dated. Antelmo Sharma MD Pager [phone] * Harini Lance MD - 05/11/2023 6:06 AM EDT Images from the original note were not included. Cardiology Progress Note Patient info: Name: Purnima Thacker : 1955 PCP: Magdalena Acosta MD PCP phone number: [phone] Date of Admission: 05/08/2023 ( Hospital Day [...] who have questions please contact the health client care manager that requested your imaging first. 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) Mild coronary artery disease by [facility] 11/09/2022 Hyperlipidemia, unspecified NICOLAS (obstructive sleep apnea) [...] PCP: Magdalena Acosta MD PCP phone number: [phone] Date of Admission: 05/08/2023 ( Hospital Day [...] 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) Mild coronary artery disease by [facility] 11/09/2022 Hyperlipidemia, unspecified NICOLAS (obstructive sleep apnea) [...] PCP: Magdalena Acosta MD PCP phone number: [phone] Date of Admission: 05/08/2023 ( Hospital Day [...] Gas) No results found for: PHART, PO2ART, DGV2LQT, SHL7VSY Microbiology: Microbiology Results (Last 30 days) No [...] PPx: Diet: Daily Healthy Menu Choices/Cardiac diet ([facility]) Lines: Peripheral IV Line [...] 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) Mild coronary artery disease by [facility] 11/09/2022 Hyperlipidemia, unspecified NICOLAS (obstructive sleep apnea) [...] Mild coronary artery disease by [facility] 11/09/2022 I25.10 Heart failure with reduced ejection fraction due to heart valve disease I50.20, I38 Cardiogenic shock R57.0 S/P TAVR (transcatheter aortic valve replacement) Z95.2 Past Medical History: Diagnosis Date Anemia Past Surgical History: Procedure Laterality Date PRG CATH PLMN LEFT HEART CATH & ARTS W/INJ & ANGIO IMG S&I N/A 11/09/2022 CORONARY ANGIOGRAPHY; W [facility],POSSIBLE PCI (WRVU 5.6) performed by Mario Alberto Escobedo MD at [facility] CATH LABS PRO AORTOPLAS FOR SUPRAVALV STEN N/A 09/21/2016 @AORTOPLASTY FOR SUPRAVALVULAR STENOSIS (WRVU 29.33) performed by Alirio Hudson MD at [facility] MAIN OR PRO REPLACEMENT PROSTHETIC AORTIC VALVE OPEN W CARDIOPULMONARY BYPASS HOMOGRF/STENT N/A 09/21/2016 @REPLACE AORTIC VALVE, OPEN, W\CPB, W\PROSTHETIC VALVE (WRVU 41.32) performed by Alirio Hudson MD at [facility] MAIN OR Social History and [...] Mild coronary artery disease by [facility] 11/09/2022 I25.10 Heart failure with reduced ejection fraction due to heart valve disease I50.20, I38 Cardiogenic shock R57.0 S/P TAVR (transcatheter aortic valve replacement) Z95.2 Past Medical History: Diagnosis Date Anemia Past Surgical History: Procedure Laterality Date PRG CATH PLMN LEFT HEART CATH & ARTS W/INJ & ANGIO IMG S&I N/A 11/09/2022 CORONARY ANGIOGRAPHY; W [facility],POSSIBLE PCI (WRVU 5.6) performed by Mario Alberto Escobedo MD at [facility] CATH LABS PRO AORTOPLAS FOR SUPRAVALV STEN N/A 09/21/2016 @AORTOPLASTY FOR SUPRAVALVULAR STENOSIS (WRVU 29.33) performed by Alirio Hudson MD at [facility] MAIN OR PRO REPLACEMENT PROSTHETIC AORTIC VALVE OPEN W CARDIOPULMONARY BYPASS HOMOGRF/STENT N/A 09/21/2016 @REPLACE AORTIC VALVE, OPEN, W\CPB, W\PROSTHETIC VALVE (WRVU 41.32) performed by Alirio Hudson MD at [facility] MAIN OR Social History and [...] which prompted her to present to [facility] [employer] [facility]. She also endorses some intermittent retrosternal chest pain with exertion.She endorses some dizziness with exertion, but has not gotten faint or passed out. At [facility] she was noted to be afebrile, blood pressure 105/64, HR 120s, satting 95% on 2L NC. Labs from [facility] are below, of note she had elevated [...] which prompted the transfer to us. [facility] labs: CBC - Hgb 10.5 CMP - Cr 1.1 BNP 62518 HsTrop 1358 Lactate 1.6 D-dimer 1183 Interval History Patient was admitted to [facility] due to concern on low BP [...] Klaudia Reid MD Internal Medicine PGY-1 Pager [phone], M1-S1 Service Associated attestation - Juan Luis Gonzalez MD - 05/08/2023 10:00 PM EDT Cardiology Attending Addendum Active Hospital Problems Diagnosis Symptomatic severe aortic stenosis with low ejection fraction Heart failure with reduced ejection fraction due to heart valve disease Mild coronary artery disease by [facility] 11/09/2022 Hyperlipidemia, unspecified History of aortic valve [...] PCP: Magdalena Acosta MD PCP phone number: [phone] Date of Admission: 05/08/2023 ( Hospital Day 0 days ) Attending:Enrique Chua MD ID: Purnima Thacker is a 67 y.o. female w/ PMH of s/p bioprosthetic AVR in 2016 with recent concern for severe restenosis, HTN, HLD, mixed connective tissue disease, who presents in transfer from [facility] with worsening BONILLA and weight gain concerning [...] days, which promptedher to present to [facility]. She also endorses some intermittent retrosternal chest pain with exertion. She endorses some dizziness with exertion, but has not gotten faint or passed out. At [facility] she was noted to be afebrile, blood pressure 105/64, HR 120s, satting 95% on 2L NC. Labs from [facility] are below, of note she had elevated [...] which prompted the transfer to us. [facility] labs: CBC - Hgb 10.5 CMP - Cr 1.1 BNP 23023 HsTrop 1358 Lactate 1.6 D-dimer 1183 Vasoactive [...] disease, who [facility] B[place] and weight gain concerning for [...] #Routine Diet: Daily Healthy Menu Choices/Cardiac diet ([facility]) DVT Prophylaxis: heparin gtt [...] to the planned procedure. Hand Hygiene: The inner tube inserter did perform hand hygiene prior to arterial [...] Successful arterial line placement. Crispin Timmons MD Tab Card Press Operator Associated attestation - Onelia Schwartz MD [...] (flow was non-pulsatile) and appearance of blood. Clare-Marily catheter was placed and locked at 55 [...] information for follow-up [facility], [place] [address] [place] [address] Cardiac Rehab, [place] [address] [facility] [place] [address] [facility], [place] [address] [place] [address] Transportation: family or friend will provide *Brother [...] Type: *No Product type* / Secondary Insurance: [employer] [place] Prescription Coverage: Yes This plan was formulated with input from patient, family (please identify family/friend involved ifapplicable) and team. All are in agreement with plan. Aliza Martino MSN-Ed, RN ACM payment analyst Office of Care Management Pager #[phone] * Plan of Care - Favian Mckeon [...] Lana Chaudhary RN - 05/21/2023 4:46 PM EDTSumcrossbridge behavioral health: [place] [facility] referral OFFICE OF CARE MANAGEMENT [...] Type: *No Product type* / Secondary Insurance: [employer] [facility] [place] Last Physical Therapy Recommendation: [...] needs. describing our affiliations within the [facility] and educate about their right to choose where referrals are sent. provide a list of Home Health Agencies / Durable Medical Equipment vendors which serve their preferred geographic area. They have requested referrals to: [facility] [address] [place] [address] [facility] [place], [place] Note routed to a Geotechnical Field Technician who will communicate referrals to facilities and provide any required information. Transportation: family or friend will provide *Brother Raymond on Tuesday 05/22 at 1000 Barriers to discharge: Does not have home 22/02 assist available until tomorrow Tuesday 05/22 Plan going forward: Discharge home into the 22/02 home care of brother Raymond with [facility] and [facility] PT/OT services on Tuesday 05/22 [...] Attending: All Staff: Staff Role Juanita Almaguer Dry Press Operator Laure Ricks PA Physician Auction Block Clerk Magdalena Rodriguez RN Radiology Nurse Consuelo Espinoza cruise coordinator Nurse Post-operative diagnosis/Indication: Right pleural effusion [...] prosthetic . #Severe prosthetic AV stenosis s/p aJnet TF TAVR #Cardiogenic shock #s/p LM stent [...] Type: *No Product type* / Secondary Insurance: [employer] [facility] [place] Last Physical Therapy Recommendation: care home [...] to: discuss discharge planning needs. provide the [facility], Office of Care Management letter from the Word Processor pertaining to rehab referrals. provide a letter describing our affiliations within the [facility] and educate about their right to choose where referrals are sent. provide the CMS Star Quality Rating handout. review the different levels of rehab including SNF, swing, and acute. provide a list of facilities within their preferred geographic area. request that they provide at least three choices for referral. They have requested referrals to: [facility] [address] [place] [address] [facility] ([facility]) [address] [place] [address] (Accepts pts only after exhausting all other local SNF options) [facility] (Swing) ([facility]) [address] [place] [address] PHONE: [phone] FAX: [phone] [facility] ([facility]) [facility]) [address] [place] [address] PHONE: [phone] FAX: [phone] Note routed to a Geotechnical Field Technician who will communicate referrals to facilities and [...] Crenshaw RN - 05/17/2023 10:25 AM EDT [facility] CARDIAC REHABILITATION Purnima Thacker was seen today regarding participation in the outpatient Phase 2 Cardiac Rehabilitation at [facility]. The patient agrees to a referral to [...] from the original note were not included. [facility] NEPHROLOGY/HYPERTENSION CONSULT NOTE PATIENT: Purnima [...] in her course. She ultimately underwent a sbxfe-zx-kkuel procedure on and tolerated it well (see operative details). [facility] the [facility] and sedated on some pressors [...] 1423 05/12/23 1105 PHART 7.39 7.37 7.34* DYA3TFC 33* 36 42 PO2ART 101 102 73* HGH1YTN 19.5* 20.4 22.1 LACTATEVEN 1.5 1.8 2.8* BGL1OIM 40 40 40 PFRATIOART2 252 255 182 VBG (Venous Blood Gas) Recent Labs 05/12/23 1557 05/12/23 1423 05/12/23 1105 LACTATEVEN 1.5 1.8 2.8* Mixed Venous Sat Recent Labs 05/12/23 1425 05/12/23 0508 05/12/23 0321 D0JUPE1 59.9 30.7 32.7 LFT's: Recent Labs 05/14/23 0110 05/13/23 0115 05/12/23 0600 BILITOT 0.4 0.5 0.9 BILIDIR -- 0.3 -- ALBUMIN 3.6 3.0* 3.5 ALKPHOS 86 85 100 ALT 437* 903* 1,174* AST 319* 792* 1,435* No results found for: UPROTCREAT No results found for: TPROTEINPEP, ALBELECT No results found for: MICROALBUR, [id number] No results found for: HA1C Lab Results Component Value Date CALCIUM 8.5 05/14/2023 PHOS 4.7 (H) 05/08/2023 No results found for: 25OHVITD MICROBIOLOGY: ProcedureComponentValueUnitsDate/TimeUrine culture [[id number]]Collected: 05/11/231921Lab Status: Final resultSpecimen: Clean Catch UrineUpdated: [...] consulted for assessment if this patient needs RAM PRESS OPERATOR. Atthis time, we can likely hold off on RAM PRESS OPERATOR. Her volume status appears sufficient and her metabolic kanwal angements with mild acidosis is not too profound. Patient does not have significant uremic symptoms. We can hold off for today, but the patient is a high risk candidate for needing RAM PRESS OPERATOR in future daysespecially if her Cr curve trends the direction it is for the next several days. S/p Qiadd-kg-Vhbnx TF TAVR: Management per cardiology. On milrinone gtt. PLAN: - Please obtain following diagnostics: renal US, urinalysis, urine prot/Cr ratio, urine albumin/Cr ratio, CK, uric acid, serum osmol, daily VBGs - No acute indications for RAM PRESS OPERATOR/dialysis. We will keep close eye on Cr trend, volume status, and metabolics to ensure patient still does not need RAM PRESS OPERATOR as she ensues intrinsic renal recovery [...] M.H.Katherine., M.A. PGY-V Nephrology-Hypertension Fellow Page # [phone] [facility] [address] 2nd floor, Barber Instructor [address] [place] [address] * Care Management - Mario Alberto Olmos [...] *No Product type* / Secondary Insurance: [facility] Plan for discharge is: Home w/o [...] for a TAVR at 730. Returned to [facility] at 0945. Was intubated in the shellfish processing laborer due to agitation. Maintained bedrest for [...] Operative Note Patient Name: Purnima Thacker : [id number] MR#: [id number] Case Date: 05/12/2023 Surgeon: Surgeon(s) and Role: [...] procedure Note: Patient Name: Purnima Thacker : [id number] MR#: [id number] Case Date: 05/12/2023 Operators Surgeon: Surgeon(s) and [...] main with 4.0 x 30 mm Resolute [place] Drug Eluting Stent Perclose x1 + Angio-seal 8 Fr x1, RFA Manual pressure, LFA Manual pressure, LFV Endotracheal intubation (performed by cardiac anesthesia) Preliminary findings: Successful right transfemoral TAVR Uwfsg-ud-Kvaja with a 23 mm Lai 3 THV. [...] MD, M.Sc. Structural Heart Disease Fellow Pager :[phone] Antelmo Sharma MD Pager [phone] * Op Note - Alirio Hudson MD - 05/12/2023 7:37 AM EDT Preop Diagnosis: Severe aortic stenosis, symptomatic. Postop Diagnosis: Same. Procedure: Transfemoral TAVR procedure with 23mm valve. Surgeon: Alirio Hudson M.D. Computer Repair Engineer: Danny CULP Procedure: The patient was taken to the shellfish processing laborer. The patient had monitored anesthesia care. 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 [facility] [place] [id number] STRUCTURAL HEART DISEASE CONSULTATION NOTE PRIMARY CARE PROVIDER: Magadlena Acosta MD REFERRING PROVIDER: Mario Alberto Chin [...] who had been referred for possible TAVR zqgdl-tz-zojoh evaluation. Her primary symptoms are of dyspnea [...] otherwise negative. Ms. Thacker is originally from [facility]. 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 PROBLEM LIST: Patient Active Problem List Diagnosis Symptomatic severe aortic stenosis with low ejection fraction Mild coronary artery disease by [facility] 11/09/2022 Heart failure with reduced ejection fraction [...] hour(s)) Lactate, whole blood, send to lab ([facility]) Result Value Ref Range Lactate WB 1.8 [...] leads Confirmed by MD Harshil, Enrique Bell ([id number]) on 05/10/2023 8:11:46 AM Assessment and Plan: [...] alert Dr. Hudson of her inpatient status, [place] primary cardiac surgeon. Based on recent clinic [...] Antelmo Sharma MD Structural Heart Disease Pager [phone] * Plan of Care - Sarahi Nice RN - 05/10/2023 3:55 AM EDTSumavis: RN Note and Care Plan Sarahi Nice RN assumed care of pt at time of their arrival to room 362 from [facility]. Pt voices shortness of breath at [...] VTE (Venous Thromboembolism) Risk Flowsheets (Taken 05/09/2023 1816) VTE Prevention/Management: anticoagulant therapy Intervention: Prevent Infection [...] listening utilized Taken 05/08/20231999 by Alivia Kauffman optomechanical technician/Support System Care: self-care encouraged support provided Problem: [...] from another hospital Location: admitted from [facility] Reason for Hospitalization: Critical aortic stenosis, causing symptoms Past medical History: Past Medical History: Diagnosis Date Anemia Hospitalizations Within the Past 30 Days: no previous admission in last 30 days Current Decision-Making Capacity: Self If AD's have not been completed the following surrogate would be surrogate decision maker per [place] surrogate decision making law. (Only good for 180 days) Any patient receiving care in [place] must abide by [place] law. The hierarchy for surrogate decision making [...] (i) The agent with financial power of employee benefits attorney or a conservator appointed in accordance [...] DME: none Home Address confirmed as[address] [place] [address] Social & Family Supports: All names listed [...] *No Product type* / Secondary Insurance: [facility] ONLY if patient has Medicare A&B - Does this patient have secondary insurance?: Yes ; Prescription Coverage: Yes Preferred Pharmacy: updated to [facility] in [facility] Status: Patient is a : No Primary Care Provider confirmed: Magdalena Acosta MD [phone] Patient/Caregiver Goals of Treatment: Potential Needs for [...] transition of care planning. Alie Bradshaw RN, Pager-[phone] * Plan of Care - Emily Lucero RN - 05/08/2023 2:54 PM EDT OUTCOME EVALUATION NOTE: OUTCOME SUMMARY: Pt arrived from [facility]. A&O, no c/o pain or SOB. Heparin [...] 4:15 PM EDT Office Visit Dermatology at [place] [address] [facility] [place] [id number] Marek Bonilla MD [address] [facility] [address], [address] [place] [address] Scheduled Referrals Name Type Priority Associated Diagnoses [...] Heart Cath W/Inj L Ventriculography, Img S&I ([id number]) 05/12/2023 7:37 AM EDT Aortic valve stenosis, [...] DOPP COLOR DOPP (07/08/2023 12:15 PM EST) [facility] EF 20 HEARTLAB SYSTEM Anatomical Region Laterality Modality Cardiac Other 07/08/2023 10:3 1 AM EST Narrative 07/08/2023 12:26 PM EST [address] [place] [id number] ? Echocardiogram Report Name: PURNIMA THACKER ?Study Date: 07/08/2023 10:31 AMBP: 118/60 mmHg ? Patient Location: : 1955 ? Height: 155 cm ? Account: [id number] Age: 67 yrs ? Weight: 74 kg Gender: Female ?BSA: 1.7 m2 Ordering Physician: ALIRIO HUDSON Referring Physician: VINOD JUÁREZ Performed By: Felicia Norris RDCS Reason For Study: S/P TAVR Exam Location: [facility]. Interpretation Summary Left ventricular systolic [...] no significant change (post-procedure). Procedure Limited - 08302. Doppler - 66628. Color Doppler - 98040. Satisfactory quality. This study is limited because [...] Note Lee Kincaid MD - 07/08/2023 1 [place] [address] Echocardiogram Report Name: KIRSTIE PURNIMA M Study Date: 310:31 AMBP: 118/60 mmHg Patient Location: : 1955 Height: 155 cm Account: [id number] Age: 67 yrs Weight: 74 kg Gender: Female BSA: 1.7 m2 Ordering Physician: ALIRIO HUDSON Referring Physician: VINOD JUÁREZ Performed By: Felicia Norris RDCS Reason For Study: S/P TAVR Exam Location: [facility]. Interpretation Summary Left ventricular systolic [...] is nosignificant change (post-procedure). Procedure Limited - 05550. Doppler - 24433. Color Doppler - 80817. Satisfactoryquality. This study is limited because of [...] Creatinine 0.81 0.70 - 1.20 mg/dL [facility] Sodium 142 135 - [...] ORDERABLE S [facility] [place] [address] * (ABNORMAL) Basic Metabolic Panel (non-fasting) (05/22/2023 3:57 AM EDT) Pathologist [facility] Glucose 88 65 - 199 mg/dL ST. [...] Carbon Dioxide 23 22 - 31 mmol/L [facility] Anion Gap 11 5 - 15 mmol/L [facility] Calcium 8.6 8.5 - 10.5 mg/dL [facility] Est Glomerular Filtration Rate 95 >=60 mL/min/1. 73 m?? [facility] Comment: This patient's [...] Agency Comment Spec In Lab Mara Serrano REHEATER HELPER CHEMISTRY ORDERABL ES [facility] [place] [address] * (ABNORMAL) Basic Metabolic Panel (non-fasting) (05/21/2023 [...] Narrative Resulting Agency Comment Spec In Lab [facility] REHEATER HELPER CHEMISTRY ORDERABL ES Performing Organization Address [facility] Co de Phone Number [facility] [place] [address] * Lavender Tube HOLD (05/20/2023 2:52 AM EDT) Lavender Hold Sample in lab. [facility] Blood Venous Draw / Unknown 05/20/2023 2:52 AM EDT 05/20/2023 3:04 AM EDT Mara Fairland REHEATER HELPER HEMATOLOGY ORDERAB LES Performing Organization Address [facility] de Phone Number [facility] [place] [address] * (ABNORMAL) Basic Metabolic Panel (non-fasting) (05/20/2023 [...] Agency Comment Spec In Lab Mara Thomasfield REHEATER HELPER CHEMISTRY ORDERABL ES Performing Organization Address [facility] Co de Phone Number [facility] [place] [address] * (ABNORMAL) Potassium (05/20/2023 2:52 AM EDT) [facility] Signature Potassium 3.4(L) 3.5 - 5.0 [...] Agency Comment Spec In Lab Mara Maggie REHEATER HELPER CHEMISTRY ORDERABL ES Performing Organization Address City/[facility] Co de Phone Number [facility] [place] [address] * XR Chest PA & Lateral (Generic) [...] who have questions please contact the health client care manager that requested your imaging first. ? Electronically signed by: Chyna Johnson MD, [facility] ??([phone]), at 05/19/2023 2:19 PM Narrative 05/19/2023 2:19 [...] patients who have questions please contactthe health client care manager that requested your imaging first. Electronically signed by: Chyna Johnson MD, [facility]([phone]), at 05/19/2023 2:19 PM Alirio Hudson MD IMG DX ORDERABLES * (ABNORMAL) Basic Metabolic Panel (non-fasting) (05/19/2023 5:49 AM EDT) Glucose 93 65 - 199 mg/dL [facility] Comment:Diabetes: >=200 mg/d L plus symptoms Blood Urea Nitrogen 45(H) 8 - 18 mg/dL [facility] Creatinine 1.02 0.70 - 1.20 mg/dL [facility] Sodium 138 135 [...] questions. Chloride 102 98 - 107 mmol/L [facility] Carbon Dioxide 26 22 - 31 mmol/L [facility] Anion Gap 10 5 - 15 mmol/L [facility] Calcium 9.7 8.5 - 10.5 mg/dL [facility] Est Glomerular Filtration Rate 60 >=60 mL/min/1. 73 m?? [facility] Comment: This patient's [...] Agency Comment Spec In Lab Mara Serrano REHEATER HELPER CHEMISTRY ORDERABL ES [facility] [place] [address] * IR Chest Tube Placement Right (05/18/2023 [...] 10 mL serosanguinous fluid. Service provider: Laure Rciks PA-C Attending of record: Kristopher Salgado MD 05/18/2023 Alirio Hudson MD IMG IR ORDERABLES * (ABNORMAL) Basic Metabolic Panel (non-fasting) (05/18/2023 2:54 AM EDT) Glucose 95 65 - 199 mg/dL [facility] Comment:Diabetes: >=200 mg/d L plus symptoms Blood Urea Nitrogen 71(H) 8 - 18 mg/dL [facility] Comment:result rechecked-[facility] Creatinine 1.64(H) 0.70 - 1.20 mg/dL [facility] Comment:result rechecked-[facility] Sodium 137 135 - 145 mmol/L ST. [...] Dioxide 24 22 - 31 mmol/L [facility] Anion Gap 13 5 [...] Agency Comment Spec In Lab Mara Serrano REHEATER HELPER CHEMISTRY ORDERABL ES [facility] [place] [address] * XR Chest PA & Lateral (Generic) [...] who have questions please contact the health client care manager that requested your imaging first. [...] patients who have questions please contactthe health client care manager that requested your imaging first. Electronically signed by: Ghassan Reyes MD, [facility]([phone]), at 05/17/2023 11:46 AM Alirio Hudson MD IMG DX ORDERABLES * (ABNORMAL) Comprehensive metabolic panel (non-fasting) (05/17/2023 4:35 AM EDT) Glucose 89 65 - 199 mg/dL [facility] Comment:Diabetes: >=200 mg/d L plus symptoms Blood Urea Nitrogen 97(H) 8 - 18 mg/dL [facility] Creatinine 2.97(H) 0.70 - 1.20 mg/dL [facility] Comment:result rechecked-JSJc Sodium 135 135 - 145 mmol/L ST. [...] ORDERABLE S [facility] [place] [address] * Potassium (05/16/2023 11:15 PM EDT) Potassium [...] CHEMISTRY ORDERABLE S Performing Organization Address [facility] Co de Phone Number [facility] [place] [address] * Magnesium (05/16/2023 5:22 PM EDT) Magnesium 0.96 0.69 - 1.07 mmol/L [facility] Blood 05/16/2023 5:22 PM EDT 05/16/2023 5:27 PM EDT Narrative Resulting Agency Comment Spec In Lab Alirio Hudson MD CHEMISTRY ORDERABLE S Performing Organization Address [facility] Co de Phone Number [facility] [place] [address] * (ABNORMAL) Basic Metabolic Panel (non-fasting) (05/16/2023 5:22 PM EDT) Glucose 106 65 - 199 mg/dL [facility] Comment:Diabetes: >=200 mg/d L plus symptoms Blood Urea Nitrogen 103(H) 8 - 18 mg/dL [facility] Creatinine 3.91(H) 0.70 [...] ORDERABLE S [facility] [place] [address] * (ABNORMAL) Potassium (05/16/2023 11:43 AM EDT) [facility] Signature Potassium 3.3(L) 3.5 - 5.0 mmol/L ST. [...] ORDERABLE S [facility] [place] [address] * (ABNORMAL) Ferritin (05/16/2023 4:41 AM EDT) Ferritin 1,813(H) 30 - 400 ng/mL [facility] Comment: Pediatric reference ranges not verified at [facility], interpret with caution. Reference ranges for females greater than 50 years of age approach values for men, i.e., 30-400 ng/mL. Blood 05/16/2023 4:41 AM EDT 05/16/2023 4:54 AM EDT Narrative Resulting Agency Comment Spec In Lab Kristopher Ayoub MD CHEMISTRY ORDERABLES [facility] [place] [address] * (ABNORMAL) PTH (05/16/2023 4:41 AM EDT) [facility] Parathyroid Hormone 120(H) 15 - 65 pg/mL [facility] Blood 05/16/2023 4:41 AM EDT 05/16/2023 4:54 AM EDT Narrative Resulting Agency Comment Spec In Lab Kristopher Ayoub MD CHEMISTRY ORDERABLES Performing Organization Address City/[facility]/ZIP Co de Phone Number [facility] [place] [address] * Vitamin D, 25-Hydroxy (05/16/2023 4:41 AM EDT) Pathologist [facility] Vitamin D Total 25 OH 33 21 - 100 ng/mL [facility] Vit D Interp Sufficient [facility] Blood 05/16/2023 4:41 AM EDT 05/16/2023 4:54 AM EDT Narrative Resulting Agency Comment Spec In Lab Kristopher Ayoub MD CHEMISTRY ORDERABLES [facility] [place] [address] * (ABNORMAL) Blood Gas Venous ([facility]) (05/16/2023 4:22 AM EDT) Pathologist [facility] pH, Venous 7.41 7.32 - 7.42 [facility] [...] [facility] Oxyhemoglobin, Venous 92.8 % [facility] Carboxyhemoglob in, Venous 0.1 % [facility] Comment: Nonsmokers: 0.5-1.5% COHB Smokers: Variable, but usually less than 10% Toxic: 20-30% COHB Lethal: Greater than 60% COHB Methemoglobin, Venous 0.3 <=1.5 % [facility] Na Whole Blood 130(L) 135 - 145 mmol/L [facility] K Whole Blood [...] Blood 95(L) 98 - 107 mmol/L [facility] Gluc Whole Bld 82 65 - 199 mg/dL [facility] Comment:Diabetes: >=200 mg/d L plus symptoms Lactate WB 1.1 0.5 - 2.2 mmol/L [facility] Blood Gas Source Venous [facility] Blood Venous Draw / Unknown 05/16/2023 4:22 AM EDT 05/16/2023 4:31 AM EDT Narrative Resulting Agency Comment Spec In Lab Bonita TOBAR CHEMISTRY ORDERABLES [facility] [place] [address] * (ABNORMAL) Differential, Automated (05/16/2023 4:20 AM EDT) Neutrophil % 84.1 % [facility] Neutrophil Absolute 6.22(H) 1.70 - 6.10 x10(3)/mc L [facility] Lymph % 5.8 % [facility] Lymphocytes Abs 0.4(L) 0.9 - 3.2 x10(3)/mc L [facility] Monocyte % 8.8 % [facility] Monocyte Abs 0.6 0.3 - 0.9 x10(3)/mc L [facility] Eos % 0.4 % [facility] Eosinophils Abs 0.0 0.0 - 0.4 x10(3)/mc L [facility] Basophil % 0.0 % [facility] Baso Absolute 0.0 0.0 - 0.1 [...] ORDER JODIE [facility] [place] [address] * (ABNORMAL) Hemogram (05/16/2023 4:20 AM EDT) [...] Cell Volume 93.8 82.6 - 94.4 fL [facility] Mean Cell Hemoglobin 32.5(H) 27.1 [...] Platelet Volume 11.3 7.6 - 12.9 fL [facility] NRBC% auto 0.7 % [facility] NRBC Absolute 0.050(H) 0.000 - 0.000 x10(3)/mc L [facility] Blood 05/16/2023 4:20 AM EDT 05/16/2023 4:29 AM EDT Narrative Resulting Agency Comment Spec In Lab James Agustin MD HEMATOLOGY ORDER JODIE [facility] [place] [address] * (ABNORMAL) Basic Metabolic Panel (non-fasting) (05/16/2023 [...] ORDERABLE S [facility] [place] [address] * (ABNORMAL) Iron and TIBC (05/16/2023 4:20 [...] CHEMISTRY ORDERABLES [facility] [place] [address] * (ABNORMAL) Basic Metabolic Panel (non-fasting) (05/15/2023 12:50 AM EDT) Glucose 101 65 - 199 mg/dL [facility] Comment:Diabetes: >=200 mg/d L plus symptoms Blood Urea Nitrogen 109(H) 8 - 18 mg/dL [facility] Creatinine 5.62(H) 0.70 - 1.20 [...] ORDERABLE S [facility] [place] [address] * (ABNORMAL) Hemogram (05/15/2023 12:50 AM EDT) White Blood Cell 9.1 4.0 - 9.5 x10(3)/mc L [facility] Red Blood Cell 2.19(L) 4.00 - 5.21 x10(6)/mc L [facility] Hemoglobin 7.2(L) 11.7 - 15.5 g/dL [facility] Hematocrit 20.6(L) 35.7 - 45.8 % [facility] Mean Cell Volume 94.1 82.6 - 94.4 fL [facility] Mean Cell Hemoglobin 32.9(H) 27.1 [...] Platelet Volume 10.4 7.6 - 12.9 fL [facility] NRBC% auto 2.1 % [facility] NRBC Absolute 0.190(H) 0.000 - 0.000 x10(3)/ L [facility] Blood 05/15/2023 12:5 0 AM EDT 05/15/2023 12:52 AM EDT Narrative Resulting Agency Comment Spec In Lab Alirio Hudson MD HEMATOLOGY ORDERABL ES Performing Organization Address City/State/[facility] Co de Phone Number [facility] [place] [address] * (ABNORMAL) BLOOD GAS 2 VENOUS (05/15/2023 12:49 AM EDT) pH, Venous 7.33 7.32 - 7.42 [facility] PCO2, Venous 37(L) 41 - [address] [facility] PO2, Venous 34 25 - [address] [facility] Bicarbonate, Venous 19.1 mmol/L [facility] Base Excess, Venous -6.8 mmol/L [facility] Hgb Blood Gas 10.8(L) 11.7 - 15.5 g/dL [facility] Oxyhemoglobin, Venous 58.1 % [facility] Carboxyhemoglob in, Venous 0.3 % [facility] Comment: Nonsmokers: 0.5-1.5% COHB Smokers: Variable, but usually less than 10% Toxic: 20-30% COHB Lethal: Greater than 60% COHB Methemoglobin, Venous 0.6 <=1.5 % [facility] Na Whole Blood 136 135 - 145 mmol/L [facility] K Whole Blood 3.7 3.5 - 5.0 mmol/L [facility] Comment: Please note: Patients with WBC >100,000 may have falsely elevated Potassium levels. Contact the Clinical Chemistry Laboratory if there are any questions. ICa Whole Blood 1.12(L) 1.15 - 1.33 mmol/L [facility] Comment: Note: ??Total bilirubin higher than 20 mg/dL may lead to falsely low ionized calcium. CL Whole Blood 95(L) 98 - 107 mmol/L [facility] Gluc Whole Bld 101 65 - 199 mg/dL [facility] Comment:Diabetes: >=200 mg/d L plus symptoms Lactate WB 1.3 0.5 - 2.2 mmol/L [facility] Flow, Mike 1.0 LPM [facility] Blood Gas Source Venous [facility] Blood 05/15/2023 12:4 9 AM EDT 05/15/2023 12:49 AM EDT Alirio Hudson MD POINT OF CARE TEST ORDERABLES Performing Organization Address City/State/[facility] Co de Phone Number [facility] [place] [address] * US Retroperitoneal Complete (05/14/2023 3:53 PM [...] who have questions, please contact the health client care manager that requested your imaging first. ? Hayden Robledo, Staff Physician Electronically Signed Final Report ?? 05/14/2023 04:39 pm Narrative 05/14/2023 4:39 PM EDT Renal ? (Signed Final 05/14/2023 04:39 pm) PATIENT INFO: ID #: ? [id number] ?: ??[birth year] (67 yrs)(F) Name: ? PURNIMA THACKER ?Visit Date: 05/14/2023 03:44 pm PERFORMED BY: Attending: ?Meena CULP, Hayden Stafford Resident: ? Nell CULP, Anand August Performed By: ? Consuelo Tello RDMS Referred By: ?ALIRIO HUDSON Location: ? [place] SERVICE(S) PROVIDED: URETRO - Retroperitoneal Complete - [id number] ? [id number] INDICATIONS: EVANS COMPARISON: CT: Abdomen/Pelvis 05/11/23 RIGHT [...] 05/14/2023 04:39 pm) PATIENT INFO: ID #: [id number] : [birth year] (67 yrs)(F) Name: PURNIMA THACKER Visit Date: 05/14/2023 03:44 pm PERFORMED BY: Attending: Hayden Robledo MD Resident: Anand Camejo MD Performed By: Consuelo Tello RDMS Referred By: ALIRIO HUDSON Location: [place] SERVICE(S) PROVIDED: URETRO - Retroperitoneal Complete - [id number] INDICATIONS: EVANS COMPARISON: CT: Abdomen/Pelvis 05/11/23 RIGHT [...] who have questions, please contact the health client care manager that requested your imaging first. Hayden [...] CHEMISTRY ORDERABLE S Performing Organization Address [facility] Co de Phone Number [facility] [place] [address] * (ABNORMAL) Uric acid (05/14/2023 3:17 PM EDT) Uric Acid 14.9(H) 2.5 - 6.5 mg/dL [facility] Blood 05/14/2023 3:17 PM EDT 05/14/2023 3:31 PM EDT Narrative Resulting Agency Comment Spec In Lab Alirio Hudson MD CHEMISTRY ORDERABLE S Performing Organization Address [facility] Co de Phone Number [facility] [place] [address] * (ABNORMAL) Osmolality (05/14/2023 3:17 PM EDT) Osmolality 311(H) 275 - 295 mOsm/kg [facility] Blood 05/14/2023 3:17 PM EDT 05/14/2023 3:31 PM EDT Narrative Resulting Agency Comment Spec In Lab Alirio Hudson MD [place] [address] * (ABNORMAL) Differential, Automated (05/14/2023 1:10 AM EDT) Neutrophil % 87.2 % [facility] Neutrophil Absolute 9.74(H) 1.70 - 6.10 x10(3)/mc L [facility] Lymph % 3.9 % [facility] Lymphocytes Abs 0.4(L) 0.9 - 3.2 x10(3)/mc L [facility] Monocyte % 7.9 % [facility] Monocyte Abs 0.9 0.3 - 0.9 x10(3)/mc L [facility] Eos % 0.0 % [facility] Eosinophils Abs 0.0 0.0 - 0.4 x10(3)/mc L [facility] Basophil % 0.1 % [facility] [address] Baso Absolute 0.0 0.0 - 0.1 [...] Absolute 0.10(H) 0.00 - 0.04 x10(3)/ L [facility] Blood 05/14/2023 1:10 AM EDT 05/14/2023 1:24 AM EDT Narrative Resulting Agency Comment Spec In Lab Bonita TOBAR HEMATOLOGY ORDERABLE S Performing Organization Address City/[facility]/ZIP Co de Phone Number [facility] [place] [address] * (ABNORMAL) Hemogram (05/14/2023 1:10 AM EDT) [...] Platelet Volume 10.4 7.6 - 12.9 fL [facility] NRBC% auto 1.5 % [facility] NRBC Absolute 0.170(H) 0.000 - 0.000 x10(3)/ L [facility] Blood 05/14/2023 1:10 AM EDT 05/14/2023 1:24 AM EDT Narrative Resulting Agency Comment Spec In Lab Bonita TOBAR HEMATOLOGY ORDERABLE S [facility] [place] [address] * (ABNORMAL) Comprehensive metabolic panel (non-fasting) (05/14/2023 [...] Aspartate Aminotransferase 319(H) 0 - 30 unit/L [facility] Alanine Aminotransferase 437(H) 0 [...] ORDERABLE S [facility] [place] [address] * APTT (05/13/2023 10:15 AM EDT) Partial [...] MD HEMATOLOGY ORDERABL ES Performing Organization Address [facility] de Phone Number [facility] [place] [address] * (ABNORMAL) Prothrombin Time (05/13/2023 10:15 AM EDT) Prothrombin Time 14.6(H) 9.4 - 12.5 sec [facility] International Normalization Ratio 1.3 [facility] Comment: An INR <2.0 [...] HEMATOLOGY ORDERABL ES Performing Organization Address [facility] de Phone Number [facility] [place] [address] * EKG 12 Lead (05/13/2023 9:22 AM EDT) Ventricular rate 92 BPM MUSE SYSTEM Atrial Rate 92 BPM MUSE SYSTEM P-R Interval 140 ms MUSE SYSTEM QRS Duration 104 ms MUSE SYSTEM Q-T Interval 384 ms MUSE SYSTEM QTC Calculated (Bezet) 474 ms MUSE SYSTEM Calculated P [place] 33 degrees MUSE SYSTEM Calculated R [place] 41 degrees MUSE SYSTEM Calculated T [place] -35 degrees MUSE SYSTEM INTERPRETATION Sinus rhythm with frequent Premature ventricular complexes Septal infarct , age undetermined ST & T wave abnormality, consider lateral ischemia Abnormal ECG When compared with ECG of 12-MAY-2023 10:10, Premature ventricular complexes are now Present I personally reviewed the tracing and edited the fellows interpretation Confirmed by fellow MD Anitha, Carissa ([id number]) on 05/13/2023 3:25:30 PM Confirmed by Maxx Best ([id number]) on 05/13/2023 8:30:56 PM MUSE SYSTEM 05/13/2023 9:22 AM EDT 05/13/2023 8:30 PM EDT Alirio Hudson MD ECG ORDERABLES MUSE SYSTEM * (ABNORMAL) Differential, Automated (05/13/2023 1:15 AM EDT) Neutrophil % 88.1 % [facility] Neutrophil Absolute 7.62(H) 1.70 - 6.10 x10(3)/mc L [facility] Lymph % 3.1 % [facility] Lymphocytes Abs 0.3(L) 0.9 - 3.2 x10(3)/mc L [facility] Monocyte % 7.9 % [facility] Monocyte Abs 0.7 0.3 - 0.9 x10(3)/mc L [facility] Eos % 0.0 % [facility] Eosinophils Abs 0.0 0.0 - 0.4 x10(3)/mc L [facility] Basophil % 0.1 % [facility] Baso Absolute 0.0 0.0 - 0.1 [...] In Lab Lorri TOBAR HEMATOLOGY ORDERABLE S [facility] [place] [address] * (ABNORMAL) Hemogram (05/13/2023 1:15 AM EDT) [...] Platelet Volume 10.2 7.6 - 12.[address] [facility] NRBC% auto 0.5 % [facility] NRBC Absolute 0.040(H) 0.000 - 0.000 x10(3)/ L [facility] Blood 05/13/2023 1:15 AM EDT 05/13/2023 1:29 AM EDT Narrative Resulting Agency Comment Spec In Lab Lorri TOBAR HEMATOLOGY ORDERABLE S [facility] [place] [address] * (ABNORMAL) Hepatic Function Panel (05/13/2023 1:15 AM EDT) Protein, Total 5.5(L) 6.1 - 8.0 g/dL [facility] Albumin 3.0(L) 3.2 - 5.2 g/dL [facility] Aspartate Aminotransferase 792(H) 0 - [...] ORDERABLE S [facility] [place] [address] * (ABNORMAL) Basic Metabolic Panel (non-fasting) (05/13/2023 1:15 AM EDT) Glucose 107 65 - 199 mg/dL [facility] Comment:Diabetes: >=200 mg/d L plus symptoms Blood Urea Nitrogen 82(H) 8 - 18 mg/dL [facility] Creatinine 3.15(H) 0.70 - 1.20 mg/dL [facility] Comment:result rechecked-NINAJ Sodium 132(L) 135 - 145 mmol/L ST. [...] ORDERABLE S [facility] [place] [address] * (ABNORMAL) BLOOD GAS 2 ARTERIAL (05/12/2023 [...] COHB Methemoglobin, Arterial 0.8 <=1.5 % [facility] Na Whole Blood 129(L) 135 - 145 mmol/L [facility] K Whole Blood 3.8 3.5 - 5.0 mmol/L [facility] Comment: Please note: Patients with WBC >100,000 may have falsely elevated Potassium levels. Contact the Clinical Chemistry Laboratory if there are any questions. ICa Whole Blood 1.05(L) 1.15 - 1.33 mmol/L [facility] LABORATORY Comment: Note: ??Total bilirubin higher than 20 mg/dL may lead to falsely low ionized calcium. CL Whole Blood 96(L) 98 - 107 mmol/L [facility] Gluc Whole Bld 178 65 - 199 mg/dL [facility] Comment:Diabetes: >=200 mg/d L plus symptoms. Lactate WB 1.5 0.5 - 2.2 mmol/L [facility] FIO2 Art 40 % [facility] PF Ratio Art 252 [facility] Blood 05/12/2023 3:57 PM EDT 05/12/2023 3:57 PM EDT Alirio Hudson MD POINT OF CARE TEST ORDERABLES Performing Organization Address [facility] Co de Phone Number [facility] [place] [address] * (ABNORMAL) Coox2 (05/12/2023 2:25 PM EDT) pO2, Coox 37 mmHg [facility] Hgb Blood Gas 9.5(L) 11.7 - 15.5 g/dL [facility] Oxyhemoglobin, Coox 59.9 % [facility] Carboxyhemoglo bin, Coox 0.3 % [facility] Comment: Nonsmokers: 0.5-1.5% COHB Smokers: Variable, but usually less than 10% Toxic: 20-30% COHB Lethal: Greater than 60% COHB Methemoglobin, Coox 0.7 <=1.5 % [facility] Source Coox Mixed Venous [facility] Blood 05/12/2023 2:25 PM EDT 05/12/2023 2:25 PM EDT Alirio Hudson MD POINT OF CARE TEST ORDERABLES Performing Organization Address [facility] Co de Phone Number [facility] [place] [address] * (ABNORMAL) BLOOD GAS 2 ARTERIAL (05/12/2023 [...] Blood 95(L) 98 - 107 mmol/L [facility] Gluc Whole Bld 168 65 - 199 mg/dL [facility] Comment:Diabetes: >=200 mg/d L plus symptoms. Lactate WB 1.8 0.5 - 2.2 mmol/L [facility] FIO2 Art 40 % [facility] PF Ratio Art 255 [facility] Blood 05/12/2023 2:23 PM EDT 05/12/2023 2:23 PM EDT Alirio Hudson MD POINT OF CARE TEST ORDERABLES [facility] [place] [address] * (ABNORMAL) Troponin (05/12/2023 2:05 PM EDT) [...] troponin value can be found in the [facility] Laboratory Test Catalog Troponin - [facility] Laboratory Test Catalog Reference: Fourth Caldwell Definition of Myocardial Infarction. Journal of the [place] 2018;72:0168-6049 Blood 05/12/2023 2:05 PM EDT 05/12/2023 2:14 PM EDT Narrative Resulting Agency Comment Spec In Lab Alirio Hudson MD CHEMISTRY ORDERABLE S [facility] [place] [address] * (ABNORMAL) Hemoglobin (05/12/2023 2:05 PM EDT) Hemoglobin 8.5(L) 11.7 - 15.5 g/dL [facility] Blood 05/12/2023 2:05 PM EDT 05/12/2023 2:14 PM EDT Narrative Resulting Agency Comment Spec In Lab Alirio Hudson MD HEMATOLOGY ORDERABL ES Performing Organization Address [facility] Co de Phone Number [facility] [place] [address] * Potassium (05/12/2023 2:05 PM EDT) Potassium [...] CHEMISTRY ORDERABLE S Performing Organization Address [facility] Co de Phone Number [facility] [place] [address] * (ABNORMAL) BLOOD GAS 2 ARTERIAL (05/12/2023 11:05 AM EDT) pH, Arterial 7.34(L) 7.35 - 7.45 [facility] PCO2, Arterial 42 35 - [address] [facility] PO2, Arterial 73(L) 85 - [address] [facility] Bicarbonate, Arterial 22.1 20.0 - 26.0 mmol/L [facility] Base Excess, Arterial -3.6(L) -3.0 - 3.0 mmol/L [facility] Hgb Blood Gas 9.3(L) 11.7 - 15.5 g/dL [facility] Oxyhemoglobin, Arterial 89.3(L) 94.0 - 97.0 % [facility] Carboxyhemoglob in, Arterial 0.2 % [facility] Comment: Nonsmokers: 0.5-1.5% COHB Smokers: Variable, but usually less than 10% Toxic: 20-30% COHB Lethal: Greater than 60% COHB Methemoglobin, Arterial 0.9 <=1.5 % [facility] Na Whole Blood 131(L) 135 - 145 mmol/L [facility] K Whole Blood [...] [facility] Gluc Whole Bld 152 65 - 199 mg/dL [facility] Comment:Diabetes: >=200 mg/d L plus symptoms. Lactate WB 2.8(H) 0.5 - 2.2 mmol/L [facility] FIO2 Art 40 % [facility] PF Ratio Art 182 [facility] Blood 05/12/2023 11:0 5 AM EDT 05/12/2023 11:05 AM EDT Alirio Hudson MD POINT OF CARE TEST ORDERABLES Performing Organization Address City/State/[facility] Co de Phone Number [facility] [place] [address] * (ABNORMAL) BLOOD GAS 2 ARTERIAL (05/12/2023 10:14 AM EDT) pH, Arterial 7.18(Criti gabrielle) 7.35 - 7.45 [facility] Comment:Noted by instrument sterilizer. PCO2, Arterial 45 35 - [address] [facility] PO2, Arterial 186(H) 85 - [address] [facility] Bicarbonate, Arterial 16.2(L) 20.0 - 26.0 mmol/L [facility] Base Excess, Arterial -12.2(L) -3.0 - 3.0 mmol/L [facility] Hgb Blood Gas 10.0(L) 11.7 - 15.5 g/dL [facility] Oxyhemoglobin, Arterial 97.0 94.0 - 97.0 % [facility] Carboxyhemoglob in, Arterial 0.2 % [facility] Comment: Nonsmokers: 0.5-1.5% COHB Smokers: Variable, but usually less than 10% Toxic: 20-30% COHB Lethal: Greater than 60% COHB Methemoglobin, Arterial 0.9 <=1.5 % [facility] Na Whole Blood 129(L) 135 - 145 mmol/L [facility] K Whole Blood [...] Whole Blood 97(L) 98 - 107 mmol/L [facility] Gluc Whole Bld 161 65 - 199 mg/dL [facility] Comment:Diabetes: >=200 mg/d L plus symptoms. Lactate WB 3.3(H) 0.5 - 2.2 mmol/L [facility] FIO2 Art 100 % [facility] PF Ratio Art 186 [facility] Blood 05/12/2023 10:1 4 AM EDT 05/12/2023 10:14 AM EDT Alirio Hudson MD POINT OF CARE TEST ORDERABLES Performing Organization Address City/State/[facility] Co de Phone Number [facility] [place] [address] * EKG 12 Lead (05/12/2023 10:10 AM EDT) Ventricular rate 116 BPM MUSE SYSTEM Atrial Rate 116 BPM MUSE SYSTEM P-R Interval 158 ms MUSE SYSTEM QRS Duration 114 ms MUSE SYSTEM Q-T Interval 348 ms MUSE SYSTEM QTC Calculated (Bezet) 483 ms MUSE SYSTEM Calculated P [place] 37 degrees MUSE SYSTEM Calculated R [place] 31 degrees MUSE SYSTEM Calculated T [place] -138 degrees MUSE SYSTEM INTERPRETATION Sinus tachycardia [...] interpretation Confirmed by fellow MD Anuja, Jim ([id number]) on 05/12/2023 1:04:20 PM Confirmed by MD Mono, Eleni ([id number]) on 05/12/2023 9:28:34 PM MUSE SYSTEM 05/12/2023 [...] who have questions please contact the health client care manager that requested your imaging first. ? Electronically signed by: Chyna Johnson MD, [facility] ??([phone]), at 05/12/2023 10:08 AM Narrative 05/12/2023 10:08 AM EDT EXAMINATION: XR CHEST ONE VIEW CLINICAL HISTORY: Post TAVR TECHNIQUE: 1 view of the chest COMPARISON: Chest radiograph from earlier today FINDINGS: Interval placement of endotracheal tube with tip terminating 2 cm above the shira. Interval placement of enteric tube projecting along the expected course of the esophagus and outside the qaame-xf-avco. Interval retraction of right IJ approach pulmonary [...] expected course ofthe esophagus and outside the fdahs-mt-ypfl. Interval retraction of right IJ approach pulmonary [...] patients who have questions please contactthe health client care manager that requested your imaging first. Electronically signed by: Chyna Johnson MD, [facility]([phone]), at 05/12/2023 10:08 AM Alirio Hudson MD [...] 1955 ? Height: 154 cm ? Account: [id number] Age: 67 yrs ? Weight: 75 kg Gender: Female ?BSA: 1.7 m2 Ordering Physician: RADHA HOLLINS Referring Physician: RADHA HOLLINS Performed By: Dilma Bee RDCS Reason For Study: Guidance for TAVR procedure Exam Location: [facility]. Interpretation Summary PRE TAVR: There [...] mL/m2. POST TAVR: Normal function of the nyows-ty-rnpdi prosthesis. See below for hemodynamic parameters. Slight improvement in left and right ventricular systolic function. LVEF now 20-25%. No pericardial effusion. See report for additional findings. Procedure Limited - 48066. Doppler - 79909. Color Doppler - 01517. Left Ventricle Left ventricle is of normal [...] 307:33 AMBP: 96/63 mmHg Patient Location: [address] : 1955 Height: 154 cm Account: [id number] Age: 67 yrs Weight: 75 kg Gender: Female BSA: 1.7 m2 Ordering Physician: RADHA HOLLINS Referring Physician: RADHA HOLLINS Performed By: Dilma Bee RDCS Reason For Study: Guidance for TAVR procedure Exam Location: [facility]. Interpretation Summary PRE TAVR: There [...] 28mL/m2. POST TAVR: Normal function of the smrjv-eb-echxw prosthesis. See belowfor hemodynamic parameters. Slight improvement in left and right ventricularsystolic function. LVEF now 20-25%. No pericardial effusion. See report for additional findings. Procedure Limited - 33040. Doppler - 37940. Color Doppler - 24823. Left Ventricle Left ventricle is of normal [...] Modality Other Narrative 05/12/2023 2:37 PM EDT ?[facility] ? Cardiac Catheterization/Intervention Report ? Patient Name: Kirstie, Purnima M. ? Procedure Date: 05/12/2023 ? A #: [id number] ? Primary Physician: Antelmo Sharma ? Case #: [id number] ? File Name: [id number] ? Catheterization Order Number: [id number] ? [facility] ? Final Report [place], [place] ? Patient Name: ? Purnima M. Kirstie ? ID#: ?[id number] ? : ?1955 ? Procedure Date: ? May 12, 2023 ? Case #: ? [id number] ? Room: ? 6 ? Case Physicians: ?Antelmo Sharma M.D. ?Start: ?08:03 ?Alirio Hudson M.D. ?Admission: ??05/08/2023 ?Lynda Mcgowan M.D. ? Discharge: ??05/22/2023 ?Fellow: ? Kristied Bhavna Tejeda. ? Referring Physician: ??Mario Alberto Chin M.D. ? Procedures: ?* Coronary Angiography ?* Left Heart Catheterization ?* Coronary Stent Insertion ?* Transcatheter Aortic Valve Replacement ?* Vascular Closure Device Deployment ?* Temporary Pacemaker Insertion In Service Department Manager ?* Endotracheal Intubation By Non-Cath Physician [...] was designated as ASA Class IV. The [facility] clinical ?frailty scale is 4: [...] guide. ??A premounted 4.00 x 30 mm [place] (MINNA) was ? deployed with a maximum [...] calculated STS risk score was 30.1%. A ptusi-ls-tzzbs ?procedure was performed on the pre-existing bioprosthetic stented ?prosthesis. The priority of the chism-yx-ruycn procedure was Elective. ?The procedure was performed [...] Lai 3 Ultra RESILIA 23 mm THV ([id number]/r=[id number]) transcatheter ?valve was inserted using standard technique. 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 ?Recommended anti-platelet/anti-thrombotic regimen: ?Continue aspirin 81 mg daily for indefinitely. ?These recommendations are made at the time of the intervention. Patient ?and provider preferences or a changing clinical situation may require ?modification of this regimen. Consult [facility] Interventional Cardiology for ?questions. [...] regimen. ? Comments: ?Successful right transfemoral TAVR Ezlfs-zp-Vqzcu with a 23 mm Lai 3 ?THV. 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 Dr. Alirio Hudson M.D. 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 Dr. Lynda Mcgowan M.D. performed the ABG, ?anesthesia and intubation-non cath physician. ? Antelmo Sharma M.D. ? Electronically Signed by: Antelmo Sharma M.D. ? Report Finalized: 05/12/2023 ??14:31 ? Report Last Ammended: 07/01/2023 ??11:30 ? Procedure Note Antelmo Sharma MD - 07/01/2023 [facility] Cardiac Catheterization/Intervention Report Patient Name: Purnima Thacker Procedure Date: 05/12/2023 A #: [id number] Primary Physician: Antelmo Sharma Case #: [id number] File Name: [id number] Catheterization Order Number: [id number] [facility] FinalReport [place], [place] Patient Name: Purnima Thacker ID#:[id number] :1955 Procedure Date: May 12, 2023 Case #: [id number] Room: 6 Case Physicians: Antelmo Sharma M.D. Start: 08:03 Alirio Hudson M.D. Admission:05/08/2023 Lynda Mcgowan M.D. Discharge:05/22/2023 Fellow: Rebekah Tejeda M.D. Referring Physician: Mario Alberto Chin M.D. Procedures: * Coronary Angiography * Left Heart Catheterization * Coronary Stent Insertion * Transcatheter Aortic Valve Replacement * Vascular Closure Device Deployment * Temporary Pacemaker Insertion In Service Department Manager * Endotracheal Intubation By Non-Cath Physician [...] of theleft main. This was a de sherwni lesion. According to the ACC/AHA classification system, [...] A premounted 4.00 x 30 mm [place] (MINNA) was deployed with a maximum inflation [...] calculated STS risk score was 30.1%. A tvkad-vs-oxvkt procedure was performed on the pre-existing bioprosthetic stented prosthesis. The priority of the roxit-oo-oirzs procedure wasElective. The procedure was performed under Moderate sedation performed byLynda Mcgowan M.D. (see anesthesia report for additional details). Alirio Hudson M.D. participated in the case (see Cardiac Surgery reportfor additional details). The TAVR sheath was a 14 Fr Corona eSheath Introducer and theaccess site was femoral. Rapid ventricular pacing was performed. An Corona Lai 3 Ultra RESILIA 23 mm THV (s/w=[id number])transcatheter valve was inserted using standard technique. The [...] prior to nor was it given inthe shellfish processing laborer. Recommended anti-platelet/anti-thrombotic regimen: Continue aspirin 81 mg daily for indefinitely. These recommendations are made at the time of the intervention.Patient and provider preferences or a changing clinical situation mayrequire modification of this regimen. Consult [facility] Interventional Cardiologyfor questions. Conclusions: [...] this regimen. Comments: Successful right transfemoral TAVR Hqukb-wv-Yterr with a 23 mmSapien 3 THV. 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 Dr. Alirio Hudson M.D. performed the left heart catheterization, access site angiography, temporary pacemaker in shellfish processing laborer, vascular closure device,transthoracic echo , TAVR [...] pCO2, POC 42 35 - 45 mmHg [facility] pO2, POC 260(H) 85 - 104 mmHg [facility] Base Excess, POC -11.0(L) -3.0 - 3.0 mmol/L [facility] Bicarbonate, POC 16.7(L) 20.0 - 26.0 mmol/L [facility] Sodium, POC 129(L) 135 - 145 mmol/L [facility] POC Potassium 3.8 3.5 - 5.0 mmol/L [facility] Ionized Calcium, POC 1.12(L) 1.15 - 1.33 mmol/L [facility] POC Hematocrit 23.0(L) 34.0 - 45.0 % [facility] POC Calc Hgb 7.8(L) 11.2 - 15.7 g/dL [facility] Comment:The calculation of h emoglobin from hematocrit assumes a normal MCHC. POC Bgas Loc CC Lab [facility] Blood 05/12/2023 8:50 AM EDT 05/13/2023 12:00 PM EDT Alirio Hudson MD CHEMISTRY ORDERABLE S [facility] [place] [address] * (ABNORMAL) Point of Care Blood Gas Historical (05/12/2023 8:10 AM EDT) pH, POC 7.27(Crit ical) 7.35 - 7.45 [facility] Comment:Critical value OK, C C Lab. pCO2, POC 37 35 - 45 mmHg [facility] pO2, POC 29(Critic al) 85 - 104 mmHg [facility] Comment:Critical value OK, C C Lab. Base Excess, POC -10.0(L) -3.0 - 3.0 mmol/L [facility] Bicarbonate, POC 16.7(L) 20.0 - 26.0 mmol/L [facility] Sodium, POC 123(L) 135 - 145 mmol/L [facility] POC Potassium 4.0 3.5 - 5.0 mmol/L [facility] Ionized Calcium, POC 1.12(L) 1.15 - 1.33 mmol/L [facility] POC Hematocrit 27.0(L) 34.0 - 45.0 % [facility] POC Calc Hgb 9.2(L) 11.2 - 15.7 g/dL [facility] Comment:The calculation of h emoglobin from hematocrit assumes a normal MCHC. POC Bgas Loc CC Lab [facility] Blood 05/12/2023 8:10 AM EDT 05/13/2023 12:00 PM EDT Alirio Hudson MD CHEMISTRY ORDERABLE S Performing Organization Address City/[facility]/ZIP Co de Phone Number [facility] [place] [address] * (ABNORMAL) Lactate, whole blood, send to lab ([facility]) (05/12/2023 7:00 AM EDT) Lactate WB 2.4(H) 0.5 - 2.2 mmol/L [facility] Blood 05/12/2023 7:00 AM EDT 05/12/2023 7:09 AM EDT Narrative Resulting Agency Comment Spec In Lab Radha Hollins MD CHEMISTRY ORDERABL ES Performing Organization Address [facility] Co de Phone Number [facility] [place] [address] * (ABNORMAL) Comprehensive metabolic panel (non-fasting) (05/12/2023 6:00 AM EDT) Glucose 167 65 - 199 mg/dL [facility] Comment:Diabetes: >=200 mg/d L plus symptoms Blood Urea Nitrogen 67(H) 8 - 18 mg/dL [facility] Creatinine 2.01(H) 0.70 - 1.20 mg/dL [facility] Sodium 131(L) 135 [...] LABORATORY Calcium 8.6 8.5 - 10.5 mg/dL [facility] Protein, Total 6.3 6.1 - [...] ORDERABL ES [facility] [place] [address] * (ABNORMAL) Coox2 (05/12/2023 5:08 AM EDT) pO2, Coox 24 mmHg [facility] Hgb Blood Gas 10.4(L) 11.7 - 15.5 g/dL [facility] Oxyhemoglobin, Coox 30.7 % [facility] Carboxyhemoglo bin, Coox 0.3 % [facility] Comment: Nonsmokers: 0.5-1.5% COHB Smokers: Variable, but usually less than 10% Toxic: 20-30% COHB Lethal: Greater than 60% COHB Methemoglobin, Coox 0.8 <=1.5 % [facility] Source Coox Mixed Venous [facility] Blood 05/12/2023 5:08 AM EDT 05/12/2023 5:08 AM EDT Radha Hollins MD POINT OF CARE TEST ORDERABLES Performing Organization Address City/[facility] Co de Phone Number [facility] [place] [address] * (ABNORMAL) Coox2 (05/12/2023 3:21 AM EDT) pO2, Coox 25 mmHg [facility] Hgb Blood Gas 10.8(L) 11.7 - 15.5 g/dL [facility] Oxyhemoglobin, Coox 32.7 % [facility] Carboxyhemoglo bin, Coox 0.3 % [facility] Comment: Nonsmokers: 0.5-1.5% COHB Smokers: Variable, but usually less than 10% Toxic: 20-30% COHB Lethal: Greater than 60% COHB Methemoglobin, Coox 0.7 <=1.5 % [facility] Source Coox Mixed Venous [facility] Blood 05/12/2023 3:21 AM EDT 05/12/2023 3:21 AM EDT Radha Hollins MD POINT OF CARE TEST ORDERABLES Performing Organization Address [facility] Co de Phone Number [facility] [place] [address] * (ABNORMAL) BLOOD GAS 2 ARTERIAL (05/12/2023 3:18 AM EDT) pH, Arterial 7.34(L) 7.35 - 7.45 [facility] PCO2, Arterial 30(L) 35 - [address] [facility] PO2, Arterial 72(L) 85 - [address] [facility] Bicarbonate, Arterial 16.0(L) 20.0 - 26.0 mmol/L [facility] Base Excess, Arterial -9.8(L) -3.0 - 3.0 mmol/L [facility] Hgb Blood Gas 11.0(L) 11.7 - 15.5 g/dL [facility] Oxyhemoglobin, Arterial 89.8(L) 94.0 - 97.0 % [facility] Carboxyhemoglob in, Arterial 0.3 % [facility] Comment: Nonsmokers: 0.5-1.5% COHB Smokers: Variable, but usually less than 10% Toxic: 20-30% COHB Lethal: Greater than 60% COHB Methemoglobin, Arterial 0.7 <=1.5 % [facility] Na Whole Blood 131(L) 135 - 145 mmol/L [facility] K Whole Blood [...] Blood 100 98 - 107 mmol/L [facility] Gluc Whole Bld 160 65 - 199 mg/dL [facility] Comment:Diabetes: >=200 mg/d L plus symptoms. Lactate WB 2.7(H) 0.5 - 2.2 mmol/L [facility] Flow Art 5.0 LPM [facility] Blood 05/12/2023 3:18 AM EDT 05/12/2023 3:18 AM EDT Radha Hollins MD POINT OF CARE TEST ORDERABLES [facility] [place] [address] * (ABNORMAL) Coox2 (05/12/2023 1:14 AM EDT) pO2, Coox 28 mmHg [facility] Hgb Blood Gas 10.9(L) 11.7 - 15.5 g/dL [facility] Oxyhemoglobin, Coox 37.3 % [facility] Carboxyhemoglo bin, Coox 0.3 % [facility] Comment: Nonsmokers: 0.5-1.5% COHB Smokers: Variable, but usually less than 10% Toxic: 20-30% COHB Lethal: Greater than 60% COHB Methemoglobin, Coox 0.5 <=1.5 % [facility] Source Coox Mixed Venous [facility] Blood 05/12/2023 1:14 AM EDT 05/12/2023 1:14 AM EDT Radha Hollins MD POINT OF CARE TEST ORDERABLES [facility] [place] [address] * (ABNORMAL) BLOOD GAS 2 ARTERIAL (05/12/2023 [...] 60% COHB Methemoglobin, Arterial 0.6 <=1.5 % [facility] Na Whole Blood 131(L) 135 - 145 mmol/L [facility] K Whole Blood 4.2 3.5 - 5.0 mmol/L [facility] Comment: Please note: Patients with WBC >100,000 may have falsely elevated Potassium levels. Contact the Clinical Chemistry Laboratory if there are any questions. ICa Whole Blood 1.13(L) 1.15 - 1.33 mmol/L [facility] Comment: Note: ??Total bilirubin higher than 20 mg/dL may lead to falsely low ionized calcium. CL Whole Blood 99 98 - 107 mmol/L [facility] Gluc Whole Bld 132 65 - 199 mg/dL [facility] Comment:Diabetes: >=200 mg/d L plus symptoms. Lactate WB 2.7(H) 0.5 - 2.2 mmol/L [facility] Flow Art 5.0 LPM [facility] Blood 05/12/2023 1:06 AM EDT 05/12/2023 1:06 AM EDT Radha Hollins MD POINT OF CARE TEST ORDERABLES [facility] [place] [address] * (ABNORMAL) Differential, Automated (05/12/2023 1:05 AM EDT) Neutrophil % 83.3 % [facility] Neutrophil Absolute 7.49(H) 1.70 - 6.10 x10(3)/mc L [facility] Lymph % 7.1 % [facility] Lymphocytes Abs 0.6(L) 0.9 - 3.2 x10(3)/mc L [facility] Monocyte % 8.9 % [facility] Monocyte Abs 0.8 0.3 - 0.9 x10(3)/mc L [facility] Eos % 0.0 % [facility] Eosinophils Abs 0.0 0.0 - 0.4 x10(3)/mc L [facility] Basophil % 0.1 % [facility] Baso Absolute 0.0 0.0 - 0.1 [...] ORDERABLE S [facility] [place] [address] * (ABNORMAL) Hemogram (05/12/2023 1:05 AM EDT) [...] Platelet Volume 10.3 7.6 - 12.[address] [facility] NRBC% auto 0.0 % [facility] NRBC Absolute 0.000 0.000 - 0.000 x10(3)/mc L [facility] Blood 05/12/2023 1:05 AM EDT 05/12/2023 1:15 AM EDT Narrative Resulting Agency Comment Spec In Lab Gianni Fletcher MD HEMATOLOGY ORDERABLE S [facility] [place] [address] * (ABNORMAL) Comprehensive metabolic panel (non-fasting) (05/12/2023 [...] ORDERABL ES [facility] [place] [address] * XR Chest One View (05/12/2023 1:00 [...] who have questions please contact the health client care manager that requested your imaging first. [...] patients who have questions please contactthe health client care manager that requested your imaging first. Radha Hollins MD IMG DX ORDERABLES * (ABNORMAL) Coox2 (05/12/2023 12:30 AM EDT) pO2, Coox 22 mmHg [facility] Hgb Blood Gas 10.9(L) 11.7 - 15.5 g/dL [facility] Oxyhemoglobin, Coox 25.1 % [facility] Carboxyhemoglo bin, Coox 0.3 % [facility] Comment: Nonsmokers: 0.5-1.5% COHB Smokers: Variable, but usually less than 10% Toxic: 20-30% COHB Lethal: Greater than 60% COHB Methemoglobin, Coox 1.4 <=1.5 % [facility] Source Coox Mixed Venous [facility] Blood 05/12/2023 12:3 0 AM EDT 05/12/2023 12:30 AM EDT Radha Hollins MD POINT OF CARE TEST ORDERABLES [facility] [address] [facility] [place] [address] * XR Chest One View (05/11/2023 11:45 [...] who have questions please contact the health client care manager that requested your imaging first. ? Electronically signed by: Will Rowe MD, [facility] ([phone]), at 05/11/2023 11:57 PM Narrative 05/11/2023 11:57 [...] patients who have questions please contactthe health client care manager that requested your imaging first. Electronically signed by: Will Roew MD, [facility]([phone]), at 05/11/2023 11:57 PM Radha Hollins MD IMG DX ORDERABLES * (ABNORMAL) Lactate, whole blood, send to lab [place] (05/11/2023 7:40 PM EDT) Lactate WB 4.8(Critic al) 0.5 - 2.2 mmol/L [facility] Comment:Called by: [facility], Read back by: Magdalena Baires, Date/Time:05/11/23 19:54. Blood 05/11/2023 7:40 PM EDT 05/11/2023 7:49 PM EDT Narrative Resulting Agency Comment Spec In Lab Radha Hollins MD CHEMISTRY ORDERABL ES Performing Organization Address [facility]/ZIP Co de Phone Number [facility] [place] [address] * Urine culture (05/11/2023 7:22 PM EDT) Pathologist [facility] Urine Culture 50,000-99,000 cfu/ml Normal mucosal herman Susceptibilit y testing not routinely performed for Coagulase Negative Staphylococcu s species and other Gram Positive organisms from urine. [facility] Clean Catch Urine 05/11/2023 7:22 PM EDT 05/11/2023 8:50 PM EDT Narrative Resulting Agency Comment Spec In Lab Brody Dale Eusebio OSBORN MICROBIOLOGY - GENE RAL ORDERABLES Performing Organization Address [facility] Co de Phone Number [facility] [place] [address] * (ABNORMAL) Urinalysis Microscopic Exam (05/11/2023 7:22 PM EDT) Pathologist [facility] RBC, Urine 2 0 - 4 /HPF [facility] WBC, Urine >100(H) 0 [...] Eusebio LEMAN URINE ORDERABLES Performing Organization Address [facility]/ZIP Co de Phone Number [facility] [place] [address] * (ABNORMAL) Urinalysis with reflex Culture (05/11/2023 [...] Clear [facility] Specific [place] Urine Automated >=1.030(A) 1.005 - 1.030 [facility] Color, Urine Dipstick Yellow Yellow [facility] Reflex to Culture Yes [facility] Clean Catch Urine 05/11/2023 7:22 PM EDT 05/11/2023 7:31 PM EDT Narrative Resulting Agency Comment Spec In Lab Brody Kaplan APRN URINE ORDERABLES Performing Organization Address [facility]/ZIP Co de Phone Number [facility] [place] [address] * (ABNORMAL) pro-Brain Natriuretic Peptide (05/11/2023 7:11 PM EDT) NT-proBNP >35,000(H) <=124 pg/mL [facility] Blood 05/11/2023 7:11 PM EDT 05/11/2023 7:26 PM EDT Narrative Resulting Agency Comment Spec In Lab Radha Hollins MD CHEMISTRY ORDERABL ES Performing Organization Address City/[facility]/ZIP Co de Phone Number [facility] [place] [address] * (ABNORMAL) Lactate, whole blood, send to lab ([facility]) (05/11/2023 2:47 PM EDT) Lactate WB 2.9(H) 0.5 - 2.2 mmol/L [facility] Blood 05/11/2023 2:47 PM EDT 05/11/2023 2:53 PM EDT Narrative Resulting Agency Comment Spec In Lab Juan Luis Gonzalez MD CHEMISTRY ORDERABLES [facility] [place] [place] [address] * (ABNORMAL) CT Angiogram Abdomen & Pelvis [...] who have questions please contact the health client care manager that requested your imaging first. [...] who have questions please contact the health client care manager that requested your imaging first. ? Electronically signed by: Cullen Narayanan MD, [facility] ([phone]), at 05/11/2023 4:37 PM Narrative 05/11/2023 4:37 [...] 610 mm2 Circumference: 88 mm Calcification: Mild Zjvzfjz-tt-lfidhrhw height: Left: 6.2 mm Right: 5.8 mm THORACIC AORTA Description: Normal course and caliber. ??Mild diffuse atherosclerotic changes. No acute aortopathy noted. Automatic Folder Seamer dimensions: Aortic root: 27.6 mm Max ascending aorta: 30.5 mm x 27.7 mm Suggested fluoroscopic angulation based on line extending through the nadirs of the three sinuses of Valsalva, set equidistant: ?? MALAWIAN ??9 degrees; cranial 7 degrees MITRAL: Mitral [...] 610 mm2 Circumference: 88 mm Calcification: Mild Ggxlldo-uc-zwaggbdx height: Left: 6.2 mm Right: 5.8 mm THORACIC AORTA Description: Normal course and caliber. Mild diffuse atheroscleroticchanges. No acute aortopathy noted. Automatic Folder Seamer dimensions: Aortic root: 27.6 mm Max ascending aorta: 30.5 mm x 27.7 mm Suggested fluoroscopic angulation based on line extending through thenadirs of the three sinuses of Valsalva, set equidistant: MALAWIAN 9 degrees; cranial 7 degrees MITRAL: Mitral [...] patients who have questions please contactthe health client care manager that requested your imaging first. Electronically signed by: Cullen Narayanan MD, [facility]([phone]), at 05/11/2023 4:37 PM Antelmo Sharma MD IMG CT ORDERABLES * (ABNORMAL) Lactate, whole blood, send to lab ([facility]) (05/11/2023 9:29 AM EDT) Lactate WB 3.1(H) 0.5 - 2.2 mmol/L [facility] Blood 05/11/2023 9:29 AM EDT 05/11/2023 9:38 AM EDT Narrative Resulting Agency Comment Spec In Lab Juan Luis Gonzalez MD CHEMISTRY ORDERABLES [facility] [place] [address] * (ABNORMAL) Differential, Automated (05/11/2023 4:42 AM EDT) Neutrophil % 78.1 % [facility] Neutrophil Absolute 5.46 1.70 - 6.10 x10(3)/mc L [facility] Lymph % 10.6 % [facility] Lymphocytes Abs 0.7(L) 0.9 - 3.2 x10(3)/mc L [facility] Monocyte % 9.6 % [facility] Monocyte Abs 0.7 0.3 - 0.9 x10(3)/mc L [facility] Eos % 0.0 % [facility] Eosinophils Abs 0.0 0.0 - 0.4 x10(3)/mc L [facility] Basophil % 0.4 % [facility] Baso Absolute 0.0 0.0 - 0.1 [...] Absolute 0.09(H) 0.00 - 0.04 x10(3)/mc L [facility] Blood 05/11/2023 4:42 AM EDT 05/11/2023 4:49 AM EDT Narrative Resulting Agency Comment Spec In Lab Klaudia Reid MD HEMATOLOGY OR DERABLES Performing Organization Address City/[facility] Co de Phone Number [facility] [place] [address] * (ABNORMAL) Hemogram (05/11/2023 4:42 AM EDT) White Blood Cell 7.0 4.0 - 9.5 x10(3)/mc L [facility] Red Blood Cell 3.44(L) 4.00 - 5.21 x10(6)/[facility] Hemoglobin 11.1(L) 11.7 - 15.5 [...] Platelet Volume 10.1 7.6 - 12.9 fL [facility] NRBC% auto 0.0 % [facility] NRBC Absolute 0.000 0.000 - 0.000 x10(3)/ L [facility] Blood 05/11/2023 4:42 AM EDT 05/11/2023 4:49 AM EDT Narrative Resulting Agency Comment Spec In Lab Klaudia Reid MD HEMATOLOGY OR DERABLES Performing Organization Address [facility] Co de Phone Number [facility] [place] [address] * Heparin (unfractionated) Level (05/11/2023 4:42 AM EDT) UF Heparin 0.46 IU/mL [facility] Comment: Heparin [...] MD HEMATOLOGY ORDERAB LES Performing Organization Address [facility] Co de Phone Number [facility] [place] [address] * (ABNORMAL) Comprehensive metabolic panel (non-fasting) (05/11/2023 4:42 AM EDT) Glucose 143 65 - 199 mg/dL [facility] Comment:Diabetes: >=200 mg/d L plus symptoms Blood Urea Nitrogen 42(H) 8 - 18 mg/dL [facility] Creatinine 1.24(H) 0.70 - 1.20 mg/dL [facility] Sodium 134(L) 135 - 145 mmol/L [facility] Potassium 4.6 3.5 [...] unit/L [facility] Comment:result rechecked[place] Alkaline Phosphatase 72 35 - 105 unit/L [...] ORDERABL ES [facility] [place] [address] * EKG 12 Lead (05/10/2023 1:16 PM EDT) Ventricular rate 118 BPM MUSE SYSTEM Atrial Rate 118 BPM MUSE SYSTEM P-R Interval 152 ms MUSE SYSTEM QRS Duration 104 ms MUSE SYSTEM Q-T Interval 316 ms MUSE SYSTEM QTC Calculated (Bezet) 442 ms MUSE SYSTEM Calculated P [place] 29 degrees MUSE SYSTEM Calculated R [place] 18 degrees MUSE SYSTEM Calculated T [place] -173 degrees MUSE SYSTEM INTERPRETATION Sinus tachycardia [...] Anterior leads Confirmed by MD Villareal Danette ([id number]) on 05/10/2023 8:47:46 PM MUSE SYSTEM 05/10/2023 1:16 PM EDT 05/10/2023 8:47 PM EDT Juan Luis Gonzalez MD ECG ORDERABLES MUSE SYSTEM * Lactate, whole blood, send to lab ([facility] (05/10/2023 11:52 AM EDT) Lactate WB 1.8 0.5 - 2.2 mmol/L [facility] Blood 05/10/2023 11:5 2 AM EDT 05/10/2023 12:13 PM EDT Narrative Resulting Agency Comment Spec In Lab Juan Luis Gonzalez MD CHEMISTRY ORDERABLES [facility] [place] [address] * XR Chest One View (05/10/2023 11:16 [...] who have questions please contact the health client care manager that requested your imaging first. ? Electronically signed by: ALIX RUVALCABA MD, [facility] ([phone]), at 05/10/2023 1:25 PM Narrative 05/10/2023 1:25 [...] patients who have questions please contactthe health client care manager that requested your imaging first. Electronically signed by: ALIX RUVALCABA MD, [facility]([phone]), at 05/10/2023 1:25 PM Juan Luis Gonzalez MD IMG DX ORDERABLES * EKG 12 Lead (05/10/2023 7:59 AM EDT) [facility] Ventricular rate 115 BPM MUSE SYSTEM Atrial Rate 115 BPM MUSE SYSTEM P-R Interval 142 ms MUSE SYSTEM QRS Duration 102 ms MUSE SYSTEM Q-T Interval 322 ms MUSE SYSTEM QTC Calculated (Bezet) 445 ms MUSE SYSTEM Calculated P [place] 36 degrees MUSE SYSTEM Calculated R [place] 28 degrees MUSE SYSTEM Calculated T [place] -119 degrees MUSE SYSTEM INTERPRETATION Sinus tachycardia [...] (ABNORMAL) Differential, Automated (05/10/2023 2:28 AM EDT) [facility] Neutrophil % 77.1 % [facility] Neutrophil Absolute 4.01 1.70 - 6.10 x10(3)/mc L [facility] Lymph % 14.0 % [facility] Lymphocytes Abs 0.7(L) 0.9 - 3.2 x10(3)/mc L [facility] Monocyte % 7.7 % [facility] Monocyte Abs 0.4 0.3 - 0.9 x10(3)/mc L [facility] Eos % 0.4 % [facility] Eosinophils Abs 0.0 0.0 - 0.4 x10(3)/mc L [facility] Basophil % 0.4 % [facility] Baso Absolute 0.0 0.0 [...] Immature Gran Absolute 0.02 0.00 - 0.04 x10(3)/[facility] Blood 05/10/2023 2:28 AM EDT 05/10/2023 2:57 AM EDT Narrative Resulting Agency Comment Spec In Lab Klaudia Reid MD HEMATOLOGY OR DERABLES [facility] [place] [address] * (ABNORMAL) Hemogram (05/10/2023 2:28 AM EDT) White Blood Cell 5.2 4.0 - 9.5 x10(3)/[facility] Red Blood Cell 3.11(L) 4.00 - 5.21 x10(6)/[facility] Hemoglobin 10.2(L) 11.7 - 15.5 [...] CENTER LABORATORY Platelet 151 145 - 357 x10(3)/[facility] RDW Standard Deviation 44.9 37.0 - 46.[address] [facility] RDW coefficient of variation 12.8 11.5 - 14.1 % [facility] Mean Platelet Volume 9.8 7.6 - 12.[address] [facility] NRBC% auto 0.0 % [facility] NRBC Absolute 0.000 0.000 - 0.000 x10(3)/[facility] Blood 05/10/2023 2:28 AM EDT 05/10/2023 2:57 AM EDT Narrative Resulting Agency Comment Spec In Lab Klaudia Reid MD HEMATOLOGY OR DERABLES [facility] [place] [address] * (ABNORMAL) Comprehensive metabolic panel (non-fasting) (05/10/2023 [...] [facility] Protein, Total 6.4 6.1 - 8.0 g/dL [facility] Albumin 3.7 3.2 - 5.2 g/dL [facility] Aspartate Aminotransferase 24 0 - 30 unit/L [facility] Alanine Aminotransferase 14 0 - 30 unit/L [facility] Alkaline Phosphatase 70 35 - 105 unit/L [facility] Bilirubin, Total 0.5 0.2 - 1.3 mg/dL [facility] Est Glomerular Filtration Rate 70 >=60 mL/min/1. 73 m?? [facility] [...] MD CHEMISTRY ORDERABL ES Performing Organization Address [facility] [place] [address] * Heparin (unfractionated) Level (05/10/2023 2:28 AM EDT) UF Heparin 0.37 IU/mL [facility] Comment: Heparin [...] MD HEMATOLOGY ORDERAB LES Performing Organization Address [facility]/ZIP Co de Phone Number [facility] [place] [address] * (ABNORMAL) Differential, Automated (05/09/2023 4:00 AM EDT) Neutrophil % 81.7 % [facility] Neutrophil Absolute 5.26 1.70 - 6.10 x10(3)/mc L [facility] Lymph % 10.7 % [facility] Lymphocytes Abs 0.7(L) 0.9 - 3.2 x10(3)/[facility] Monocyte % 6.5 % [facility] Monocyte Abs 0.4 0.3 - 0.9 x10(3)/[facility] Eos % 0.5 % [facility] Eosinophils Abs 0.0 0.0 - 0.4 x10(3)/[facility] Basophil % 0.3 % [facility] Baso Absolute 0.0 0.0 - 0.1 x10(3)/[facility] Immature Gran % 0.30 % ST. [...] OR DERABLES [facility] [place] [address] * (ABNORMAL) Hemogram (05/09/2023 4:00 AM EDT) White Blood Cell 6.4 4.0 - 9.5 x10(3)/[facility] Red Blood Cell 3.15(L) 4.00 - 5.21 x10(6)/[facility] Hemoglobin 10.2(L) 11.7 - 15.5 g/dL [facility] Hematocrit 30.3(L) 35.7 - 45.8 % [facility] Mean Cell Volume 96.2(H) 82.6 - 94.4 fL [facility] Mean Cell Hemoglobin 32.4(H) 27.1 - 32.[address] [facility] Mean Cell Hemoglobin Concentration 33.7 31.7 - 35.0 g/dL [facility] Platelet 151 145 - 357 x10(3)/mc L [facility] RDW Standard Deviation 44.7 37.0 - 46.[address] [facility] RDW coefficient of variation 12.8 11.5 - 14.1 % [facility] Mean Platelet Volume 9.4 7.6 - 12.9 fL [facility] NRBC% auto 0.0 % [facility] NRBC Absolute 0.000 0.000 - 0.000 x10(3)/mc L [facility] Blood 05/09/2023 4:00 AM EDT 05/09/2023 4:19 AM EDT Narrative Resulting Agency Comment Spec In Lab Klaudia Reid MD HEMATOLOGY OR DERABLES Performing Organization Address City/State/[facility] Co de Phone Number [facility] [place] [address] * Heparin (unfractionated) Level (05/09/2023 4:00 AM EDT) UF Heparin 0.47 IU/mL [facility] Comment: Heparin (anti-Xa) levels should be [...] ORDERAB LES [facility] [place] [address] * (ABNORMAL) Comprehensive metabolic panel (non-fasting) (05/09/2023 [...] Aspartate Aminotransferase 32(H) 0 - 30 unit/L [facility] Alanine Aminotransferase 18 0 [...] MD CHEMISTRY ORDERABL ES Performing Organization Address [facility] Co de Phone Number [facility] [place] [address] * (ABNORMAL) pro-Brain Natriuretic Peptide (05/08/2023 4:00 PM EDT) NT-proBNP 25,503(H) <=124 pg/mL [facility] Blood Venous Draw / Unknown 05/08/2023 4:00 PM EDT 05/08/2023 4:25 PM EDT Narrative Resulting Agency Comment Spec In Lab Juan Luis Gonzalez MD CHEMISTRY ORDERABLES Performing Organization Address [facility] Co de Phone Number [facility] [place] [address] * Magnesium (05/08/2023 4:00 PM EDT) Magnesium 0.82 0.69 - 1.07 mmol/L [facility] Blood 05/08/2023 4:00 PM EDT 05/08/2023 4:06 PM EDT Narrative Resulting Agency Comment Spec In Lab Enrique Chua MD CHEMISTRY ORDERABLES Performing Organization Address [facility] Co de Phone Number [facility] [place] [address] * Potassium (05/08/2023 4:00 PM EDT) Potassium [...] MD CHEMISTRY ORDERABL ES Performing Organization Address [facility] Co de Phone Number [facility] [place] [address] * Heparin (unfractionated) Level (05/08/2023 4:00 PM EDT) Pathologist [facility] UF Heparin 0.43 IU/mL [facility] Comment: Heparin [...] MD HEMATOLOGY ORDERAB LES Performing Organization Address [facility] Co de Phone Number [facility] [place] [address] * EKG 12 Lead (05/08/2023 3:51 PM EDT) Ventricular rate 98 BPM MUSE SYSTEM Atrial Rate 98 BPM MUSE SYSTEM P-R Interval 150 ms MUSE SYSTEM QRS Duration 102 ms MUSE SYSTEM Q-T Interval 358 ms MUSE SYSTEM QTC Calculated (Bezet) 457 ms MUSE SYSTEM Calculated P [place] 38 degrees MUSE SYSTEM Calculated R [place] 48 degrees MUSE SYSTEM Calculated T [place] -112 degrees MUSE SYSTEM INTERPRETATION Sinus rhythm with frequent and consecutive Premature ventricular and fusion complexes Septal infarct , age undetermined ST & T wave abnormality, consider anterolateral ischemia Abnormal ECG When compared with ECG of 09-NOV-2022 11:17, T wave inversion now evident in Anterolateral leads Confirmed by MD Harshil, Enrique Bell ([id number]) on 05/10/2023 8:11:46 AM MUSE SYSTEM 05/08/2023 3:51 PM EDT 05/10/2023 8:11 AM EDT Radha Hollins MD ECG ORDERABLES MUSE SYSTEM * (ABNORMAL) Differential, Automated (05/08/2023 11:38 AM EDT) Neutrophil % 71.3 % [facility] Neutrophil Absolute 2.91 1.70 - 6.10 x10(3)/mc L [facility] Lymph % 19.1 % [facility] Lymphocytes Abs 0.8(L) 0.9 - 3.2 x10(3)/mc L [facility] Monocyte % 9.0 % [facility] Monocyte Abs 0.4 0.3 - 0.9 x10(3)/mc L [facility] Eos % 0.2 % [facility] Eosinophils Abs 0.0 0.0 - 0.4 x10(3)/mc L [facility] Basophil % 0.2 % [facility] Baso Absolute 0.0 0.0 - 0.1 [...] ORDERA BLES [facility] [place] [address] * (ABNORMAL) Hemogram (05/08/2023 11:38 AM EDT) White Blood Cell 4.1 4.0 - 9.5 x10(3)/mc L [facility] Red Blood Cell 3.05(L) 4.00 - 5.21 x10(6)/mc L [facility] Hemoglobin 10.2(L) 11.7 - 15.5 g/dL [facility] Hematocrit 29.6(L) 35.7 - 45.8 % [facility] Mean Cell Volume 97.0(H) [...] MEDICAL CENTER LABORATORY NRBC% auto 0.0 % [facility] NRBC Absolute 0.000 0.000 - 0.000 x10(3)/mc L [facility] Blood 05/08/2023 11:3 8 AM EDT 05/08/2023 11:44 AM EDT Narrative Resulting Agency Comment Spec In Lab Lincoln Sal MD HEMATOLOGY ORDERA BLES [facility] [place] [address] * TSH (05/08/2023 11:38 AM EDT) Thyroid Stimulating Hormone 1.27 0.27 - 4.20 mcIU/mL [facility] Comment: Reference Interval (mcIU/mL): Females: ??First Trimester: 0.23-3.88 ??Second Trimester: 0.22-3.90 ??Third Trimester: 0.44-4.66 Blood 05/08/2023 11:3 8 AM EDT 05/08/2023 11:44 AM EDT Narrative Resulting Agency Comment Spec In Lab Enrique Chua MD CHEMISTRY ORDERABLES Performing Organization Address City/[facility] Co de Phone Number [facility] [place] [address] * (ABNORMAL) Phosphorus (05/08/2023 11:38 AM EDT) Phosphorus 4.7(H) 2.5 - 4.5 mg/dL [facility] Blood 05/08/2023 11:3 8 AM EDT 05/08/2023 11:44 AM EDT Narrative Resulting Agency Comment Spec In Lab Enrique Chua MD CHEMISTRY ORDERABLES Performing Organization Address [facility] Co de Phone Number [facility] [place] [address] * Magnesium (05/08/2023 11:38 AM EDT) Magnesium 0.76 0.69 - 1.07 mmol/L [facility] Blood 05/08/2023 11:3 8 AM EDT 05/08/2023 11:44 AM EDT Narrative Resulting Agency Comment Spec In Lab Enrique Chua MD CHEMISTRY ORDERABLES Performing Organization Address [facility] Co de Phone Number [facility] [place] [address] * (ABNORMAL) Basic Metabolic Panel (non-fasting) (05/08/2023 [...] Chua MD CHEMISTRY ORDERABLES Performing Organization Address City/State/[facility] Co de Phone Number [facility] [place] [address] * ECHO COMPLETE (05/08/2023 11:02 AM EDT) EF 25 HEARTSchedule C Systems SYSTEM Anatomical Region Laterality Modality Cardiac Other 05/08/2023 10:0 3 AM EDT Narrative 05/08/2023 11:51 AM EDT ? Echocardiogram Report Name: PURNIMA THACKER ?Study Date: 05/08/2023 10:03 AMBP: 92/64 mmHg ? Patient Location: [facility]^CV29^A : 1955 ? Height: 155 cm ? Account: [id number] Age: 67 yrs ? Weight: 78 kg Gender: Female ?BSA: 1.8 m2 Ordering Physician: ENRIQUE CHUA Referring Physician: MARIO ALBERTO CHIN Performed By: CHUCKIE Canchola Reason For Study: SAVR Stenosis Exam Location: [facility]. Interpretation Summary -Left ventricle is [...] worsening stenosis. Mitral regurgitation is similar. Procedure Complete-[id number]. Satisfactory quality. There is normal sinus rhythm. [...] Study Date: 310:03 AMBP: 92/64 mmHg Patient Location:[facility]^CV29^A : 1955 Height: 155 cm Account: [id number] Age: 67 yrs Weight: 78 kg Gender: Female BSA: 1.8 m2 Ordering Physician: ENRIQUE CHUA Referring Physician: MARIO ALBERTO CHIN Performed By: CHUCKIE Canchola Reason For Study: SAVR Stenosis Exam Location: [facility]. Interpretation Summary -Left ventricle is [...] suggestsworsening stenosis. Mitral regurgitation is similar. Procedure Complete-[id number]. Satisfactory quality. There is normal sinus rhythm. 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 Mild coronary artery disease by [facility] 11/09/2022 Mixed connective tissue disease Other specified [...] ejection fraction Mild coronary artery disease by [facility] 11/09/2022 Stenosis of prosthetic aortic valve (Bovine [...] Discontinued, Routine 0836 (Given - Provider: Gabino Calhuon RN)2054 (Given - Provider: Favian Mckeon, RN) [...] 40 mEq, Oral, ONCE, 1 dose, On [facility] 05/20/23 at 0915, potassium chloride ER [...] Routine documented in this encounter Care Teams Sports Doctor Relationship Specialty Start Date End Date Magdalena Acosta MD [address] [place] [address] PCP - General Family Medicine 02/05/23 documented as of this encounter
--- OUTSIDE RECORDS SUMMARY | 2024-03-28 14:29 | XMS_ITS | Encounter Summary ---
Author Organization [facility] [place] [address] Care Team Providers Care Oracle Erp Architect Name Role Phone Magdalena Acosta MD Primary Care Provider [phone] Reason for Referral * Consultation (Routine) - Closed Specialty Diagnoses / Procedures Referred By Contac t Referred To Contact Rheumatology Diagnoses Weakness Kyra Haas MD [facility] [address] [place] [address] [facility] Rheumatology [address] [place] [id number] Referral ID Status Reason Start Date Expiration Date V isits Requested Visits Authorized [id number] Closed Consult, Test & Treat PCP Updated and/or Approved 02/25/2023 02/25/2024 6 6 Encounter Details Date Type Department Care Team (Late st Contact Info) Description 02/25/2023 Transcribe Orders eDH Incoming Referrals [phone] Magdalena Acosta MD [address] [place] [address] Weakness Social History Tobacco Use [...] 4:15 PM EDT Office Visit Dermatology at [place] [address] [place] [address] Marek Bonilla MD [address] [place] [address] Scheduled Referrals Name Type Priority Associated Diagnoses Order Schedule Referral to Rheumatology Outpatient Referral Routine Weakness Ordered: 02/25/2023 documented as of this encounter Visit Diagnoses Diagnosis Weakness Other malaise and fatigue documented in this encounter Care Teams Oracle Erp Architect Relationship Specialty Start Date End Date Magdalena Acosta MD [address] [place] [address] PCP - General Family Medicine 02/05/23 documented as of this encounter
--- OUTSIDE RECORDS SUMMARY | 2024-03-28 14:29 | XMS_ITS | Encounter Summary ---
Author Organization [facility] [place] [address] Care Team Providers Care Concrete Rubber Name Role Phone Junaid Deborah Shields APRN Primary Care Provider [phone] Encounter Details Date Type Department Care Team (Latest Contact Info) Description 11/09/2022 10:37 AM EDT - 11/09/2022 4:53 PM EDT Hospital Encounter [place] [address] Nitesh Escobedo MD [facility] [place] [address] Aortic valve stenosis, etiology of cardiac valve [...] Center 02/05/2023 2:30 PM Marek Bonilla MD [facility] New Medications to be Picked Up None For questions regarding this document or issues relating to this hospitalization on the Medical Service, please contact your inpatient physician through the [facility] Reconditioning Associate . Issues afterhours and on weekends will be handled by the Hospitalist staff on-call. * Attachments The following attachments cannot be sent through Care Everywhere. * Coronary Angiogram: Post-op (Kosovan) * Right Heart Catheterization: Pulmonary Artery Catheterization: Post-op (Kosovan) documented in this encounter Medications at Time [...] MD - 11/09/2022 11:20 AM EDT . [facility] Interventional Cardiology Adult Pre-Procedure H&P Update: Cardiac Catheterization Purnima Thacker [id number] 1955 Chief Complaint: BONILLA HPI: Purnima Thacker [...] Marrero MD Interventional Cardiology 11/09/22 11:43 AM [facility] Pager: [phone] documented in this encounter Plan of Treatment Upcoming Encounters Date Type Department Care Team (Late st Contact Info) Description 03/01/2025 4:15 PM EDT Office Visit Dermatology at [place] [address] [place] [address] Marek Bonilla MD [address], [place] [address] documented as of this encounter Procedures Procedure Name Priority Date/Time Associated Diagnosis Comments CARDIAC CATHETERIZATION Routine 11/10/19 1:05 PM EDT Aortic valve stenosis, etiology of cardiac valve disease unspecified Cath Plmt Left Heart Cath & Arts W/Inj & Angio Img S&I (39[address]) 11/09/2022 11:51 AM EDT Aortic valve stenosis, etiology of cardiac valve disease unspecified EKG 12-LEAD Routine 11/09/2022 11:17 AM EDT Aortic valve stenosis, etiology of cardiac valve disease unspecified documented in this encounter Results * CARDIAC CATHETERIZATION (11/09/2022 1:05 PM EDT) Anatomical Region Laterality Modality Other Narrative 11/09/2022 2:01 PM EDT [facility]ter[facility]Intervention Report ? Patient Name: Purnima Thacker. ? Procedure Date: 11/09/2022 ? A #: [id number] ? Primary Physician: Nitesh Escobedo ? Case #: [id number] ? File Name: [id number] ? Catheterization Order Number: [id number] ? [facility] ? Final Report [place], [place] ? Patient Name: ? Purnima M. Kirstie ? ID#: ?[id number] ? : ?1955 ? Procedure Date: ? [...] was designated as ASA Class III. The [facility] clinical frailty scale ?is 4: Vulnerable. [...] (Bezet) 457 ms MUSE SYSTEM Calculated P Bertrand 44 degrees MUSE SYSTEM Calculated R Bertrand 33 degrees MUSE SYSTEM Calculated T Bertrand 30 degrees MUSE SYSTEM INTERPRETATION Sinus rhythm Occasional Premature ventricular complexes Otherwise normal ECG When compared with ECG of 21-SEP-2016 12:26, Premature ventricular complexes are now Present UT interval has decreased Nonspecific T wave abnormality has replaced inverted T waves in Inferior leads I personally reviewed the tracing and edited the fellows interpretation Confirmed by fellow MD Welsh Hanyuan ([id number]) on 11/09/2022 6:17:28 PM Confirmed by Elsa [...] MD) documented in this encounter Care Teams Concrete Rubber Relationship Specialty Start Date End Date Deborah Quiroga, INSTRUMENTATION AND CONTROL TECHNICIAN PCP - General Family Medicine 03/24/16 02/04/23 documented as of this encounter
--- OUTSIDE RECORDS SUMMARY | 2024-03-28 14:29 | XMS_ITS | Encounter Summary ---
Author Organization [facility] Address [facility] [place] [address] Care Team Providers Care Lime Puller Name Role Phone Deborah Quiroga ANURAG Primary Care Provider [phone] Encounter Details Date Type Department Care Team (Late st Contact Info) Description 01/14/2023 Refill Dermatology at [address] [address] Lupe Connor RN Social History [...] She would like the medication called into [email or web address] in [facility]. Discussed with Dr. Bonilla and he has approved refill of the Doxycycline 50 mg take one capsule by mouth daily in the evenings dispense 30 capsules with 2 refills. Patient notified. documented in this encounter Plan of Treatment Upcoming Encounters Date Type Department Care Team (Late st Contact Info) Description 03/01/2025 4:15 PM EDT Office Visit Dermatology at [place] [address] [place] [address] Marek Bonilla MD [address], [place] [address] documented as of this encounter Visit Diagnoses Not on filedocumented in this encounter Care Teams Lime Puller Relationship Specialty Start Date End Date Deborah Quiroga APRN PCP - General Family Medicine 03/24/16 02/04/23 documented as of this encounter
--- OUTSIDE RECORDS SUMMARY | 2024-03-28 14:29 | XMS_ITS | Encounter Summary ---
[place] [address] Care Team Providers Care Motor Brakeman Name Role Phone Magdalena Acosta MD Primary Care Provider [phone] Reason for Visit * Reason Comments Suture / Staple Removal Encounter Details Date Type Department Care Team (Late st Contact Info) Description 02/16/2023 10:00 AM EDT Office Visit Dermatology at [place] [address] [place] [phone] Marek Bonilla MD [address] [facility], [address] A DERMATOLOGY [place], [place] [address] Visit for suture removal Social History Tobacco [...] 4:15 PM EDT Office Visit Dermatology at [place] [address] [place] [address] Marek Bonilla MD [address] [place] [address] documented as of this encounter Visit Diagnoses Diagnosis Visit for suture removal Encounter for removal of sutures documented in this encounter Care Teams Motor Brakeman Relationship Specialty Start Date End Date Magdalena Acosta MD [address] [place] [address] PCP - General Family Medicine 02/05/23 documented as of this encounter
--- OUTSIDE RECORDS SUMMARY | 2024-03-28 14:29 | XMS_ITS | Encounter Summary ---
Author Organization [facility] [place] [address] Care Team Providers Care Ticket Agent Name Role Phone Magdalena Acosta MD Primary Care Provider [phone] Encounter Details Date Type Department Care Team (Late st Contact Info) Description 02/17/2023 2:00 PM EDT Office Visit [place] [phone] Alirio Esparza MD Aortic valve stenosis, etiology [...] 4:15 PM EDT Office Visit Dermatology at [place] [address] [place] [address] Marek Bonilla MD [address], [place] [address] documented as of this encounter Visit Diagnoses Diagnosis Aortic valve stenosis, etiology of cardiac valve disease unspecified documented in this encounter Care Teams Ticket Agent Relationship Specialty Start Date End Date Magdalena Acosta MD [address] [place] [address] PCP - General Family Medicine 02/05/23 documented as of this encounter
--- OUTSIDE RECORDS SUMMARY | 2024-03-28 14:29 | XMS_ITS | Encounter Summary ---
[place] [address] Care Team Providers Care Hollow Handle Knife Assembler Name Role Phone Magdalena Acosta MD Primary Care Provider [phone] Encounter Details Date Type Department Care Team [...] PM EDT Office Visit Dermatology at [address] [place] [address] Marek Bonilla MD [address] [facility], [place] [address] documented as of this encounter Visit Diagnoses Not on filedocumented in this encounter Care Teams Hollow Handle Knife Assembler Relationship Specialty Start Date End Date Magdalena Acosta MD [address] [place] [address] PCP - General Family Medicine 02/05/23 documented as of this encounter
--- OUTSIDE RECORDS SUMMARY | 2024-03-28 14:29 | XMS_ITS | Encounter Summary ---
[place] [address] Care Team Providers Care Hotel Receptionist Name Role Phone Magdalena Acosta MD Primary Care Provider [phone] Encounter Details Date Type Department Care Team [...] 4:15 PM EDT Office Visit Dermatology at [address] [place] [address] Marek Bonilla MD [address] [facility], [place] [address] documented as of this encounter Visit Diagnoses Not on filedocumented in this encounter Care Teams Hotel Receptionist Relationship Specialty Start Date End Date Magdalena Acosta MD [address] [place] [address] PCP - General Family Medicine 02/05/23 documented as of this encounter
--- OUTSIDE RECORDS SUMMARY | 2024-03-28 14:29 | XMS_ITS | Encounter Summary ---
Author Organization [facility] Address [facility] [place] [address] Care Team Providers Care Enrollment Coordinator Name Role Phone Magdalena Acosta MD Primary Care Provider [phone] Encounter Details Date Type Department Care Team (Late st Contact Info) Description 03/29/2023 Orders Only Cardiology at [address] [phone] Ranjan Delgado MD [address] [place] [address] Severe aortic stenosis (Primary Dx) Social History [...] PM EDT Office Visit Dermatology at [place] [address] [place] [address] Marek Bonilla MD [address] [facility], [place] [address] Scheduled Orders Name Type Priority [...] disorders documented in this encounter Care Teams Enrollment Coordinator Relationship Specialty Start Date End Date Magdalena Acosta MD [address] [place] [address] PCP - General Family Medicine 02/05/23 documented as of this encounter
--- OUTSIDE RECORDS SUMMARY | 2024-03-28 14:29 | XMS_ITS | Encounter Summary ---
[place] [address] Care Team Providers Care Metals Analyst Name Role Phone Magdalena Acosta MD Primary Care Provider [phone] Encounter Details Date Type Department Care Team [...] PM EDT Office Visit Dermatology at [address] [place] [address] Marek Bonilla MD [address] [facility], [place] [address] documented as of this encounter Visit Diagnoses Not on filedocumented in this encounter Care Teams Metals Analyst Relationship Specialty Start Date End Date Magdalena Acosta MD [address] [place] [address] PCP - General Family Medicine 02/05/23 documented as of this encounter
--- OUTSIDE RECORDS SUMMARY | 2024-03-28 14:29 | XMS_ITS | Encounter Summary ---
[place] [address] Care Team Providers Care Obstetrics Technician Name Role Phone Magdalena Acosta MD Primary Care Provider [phone] Encounter Details Date Type Department Care Team [...] PM EDT Office Visit Dermatology at [address] [place] [address] Marek Bonilla MD [address] [facility], [place] [address] documented as of this encounter Visit Diagnoses Not on filedocumented in this encounter Care Teams Obstetrics Technician Relationship Specialty Start Date End Date Magdalena Acosta MD [address] [place] [address] PCP - General Family Medicine 02/05/23 documented as of this encounter
--- OUTSIDE RECORDS SUMMARY | 2024-03-28 14:29 | XMS_ITS | Encounter Summary ---
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 documented in this encounter Plan of Treatment Upcoming Encounters Date Type Department Care Team (Late st Contact Info) Description 03/01/2025 4:15 PM EDT Office Visit Dermatology at [place] [address] [facility] [place] [address] Marek Bonilla MD [address], [place] [address] documented as of this encounter Visit Diagnoses Not on filedocumented in this encounter Care Teams Housekeeping Assistant Relationship Specialty Start Date End Date Magdalena Acosta MD [address] [place] [address] PCP - General Family Medicine 02/05/23 documented as of this encounter
--- OUTSIDE RECORDS SUMMARY | 2024-03-28 14:29 | XMS_ITS | Encounter Summary ---
Author Organization [facility] Address [facility] [place] [address] Care Team Providers Care Physician Assistant Certified Name Role Phone Magdalena Acosta MD Primary Care Provider [phone] Encounter Details Date Type Department Care Team (Late st Contact Info) Description 04/27/2023 3:00 PM EDT Office [place] [address] Magdalena Peralta MD [facility] [place] [address] Mixed connective tissue disease Social History Tobacco [...] 1:5120 speckled; VIC negative; Myositis panel with KITCHEN FOOD ASSEMBLER ab 149.1 (positive); Anti U1RNP IgG 119; [...] 4:15 PM EDT Office Visit Dermatology at [place] [address] [place] [address] Marek Bonilla MD [address] [facility] [place] [address] documented as of this encounter Visit Diagnoses Diagnosis Mixed connective tissue disease Other specified diffuse disease of connective tissue documented in this encounter Care Teams Physician Assistant Certified Relationship Specialty Start Date End Date Magdalena Acosta MD [address] [place] [address] PCP - General Family Medicine 02/05/23 documented as of this encounter
--- OUTSIDE RECORDS SUMMARY | 2024-03-28 14:29 | XMS_ITS | Encounter Summary ---
[place] [address] Care Team Providers Care Commercial Construction Estimator Name Role Phone Magdalena Acosta MD Primary Care Provider [phone] Encounter Details Date Type Department Care Team [...] PM EDT Office Visit Dermatology at [address] [place] [address] Marek Bonilla MD [address] [facility] [address] documented as of this encounter Visit Diagnoses Not on filedocumented in this encounter Care Teams Commercial Construction Estimator Relationship Specialty Start Date End Date Magdalena Acosta MD [address] [place] [address] PCP - General Family Medicine 02/05/23 documented as of this encounter
--- OUTSIDE RECORDS SUMMARY | 2024-03-28 14:29 | XMS_ITS | Encounter Summary ---
[place] [address] Care Team Providers Care Supply Officer Name Role Phone Magdalena Acosta MD Primary Care Provider [phone] Reason for Visit * Reason Comments Skin Lesion Encounter Details Date Type Department Care Team (Late st Contact Info) Description 04/20/2023 10:00 AM EDT Office Visit Dermatology at [address] [address] Marek Bonilla MD [address] [facility], [place] [address] Seborrheic keratosis Social History Tobacco Use Types [...] cutaneous and ocular 3. Previously told by stringing machine operator that she had corneal tears from [...] PM EDT Office Visit Dermatology at [place] [address] [facility] [place] [address] Marek Bonilla MD [address] [place] [address] documented as of this encounter Visit Diagnoses Diagnosis Seborrheic keratosis Other seborrheic keratosis documented in this encounter Care Teams Supply Officer Relationship Specialty Start Date End Date Magdalena Acosta MD [address] [place] [address] PCP - General Family Medicine 02/05/23 documented as of this encounter
--- OUTSIDE RECORDS SUMMARY | 2024-03-28 14:29 | XMS_ITS | Encounter Summary ---
Author Organization [facility] [place] [address] Care Team Providers Care Architect In Training Name Role Phone Magdalena Acosta MD Primary Care Provider [phone] Encounter Details Date Type Department Care Team (Late st Contact Info) Description 05/08/2023 [place] [phone] Luis Felipe Ott MD [facility] [address] Social History Tobacco Use Types Packs/Day Years [...] 0426 Referring Provider: Nitesh Baltazar Patient Location: [facility] Presenting Symptoms per OSH: 67 year [...] diuresis with IV furosemide 20 x 1 ([id number] at rheumatology appointment), SpO2 85% on RA -> 95% on 2L NC, HR 120s. Examination significant for decreased breath sounds at the bases. Pertinent Diagnostic Findings: CBC - Hgb 10.5 CMP - Cr 1.1 BNP 32520 HsTrop 1358 Lactate 1.6 D-dimer 1183, CTPE pending CXR demonstrated pulmonary vascular congestion US showed bilateral b lines Bedside echo reportedly similar to prior TTE for LV function OSH Interventions: ASA 324 Heparin gtt Plan: Transfer to [facility] Above recommendations/plans are based on my conversation with the referring provider. I have not personally interviewed or examined this patient. Luis Felipe Ott MD Rn Appeals Received a call from provider emergently at 715am. Mentating well and BP 87/53. HR 108 and diursingwell. They were about to start phenylephrine which I stressed was not a good option given concern for severe and increasing afterload. She is warm on exam, mentating and urinating and we do not need to amrit a BP if those things remain stable. Nico Segura, PGY-6 Rn Appeals [phone] documented in this encounter Plan of Treatment Upcoming Encounters Date Type Department Care Team (Late st Contact Info) Description 03/01/2025 4:15 PM EDT Office Visit Dermatology at [place] [address] [place] [address] Marek Bonilla MD [address] [place] [address] documented as of this encounter Visit Diagnoses Not on filedocumented in this encounter Care Teams Architect In Training Relationship Specialty Start Date End Date Magdalena Acosta MD [address] [place] [address] PCP - General Family Medicine 02/05/23 documented as of this encounter
--- OUTSIDE RECORDS SUMMARY | 2024-03-28 14:29 | XMS_ITS | Encounter Summary ---
Author Organization [facility] Address [facility] [place] [address] Care Team Providers Care Supervisor Bindery Name Role Phone Magdalena Acosta MD Primary Care Provider [phone] Reason for Visit * Consultation (Routine) - Closed Specialty Diagnoses / Procedures Referred By Contac t Referred To Contact Rheumatology Diagnoses Weakness Kyra Haas MD [facility] [address] [place] [address] [facility] Rheumatology [address] [place] [phone] Referral ID Status Reason Start Date Expiration Date V isits Requested Visits Authorized [id number] Closed Consult, Test & Treat PCP Updated and/or Approved 02/25/2023 02/25/2024 6 6 Encounter Details Date Type Department Care Team (Late st Contact Info) Description 03/18/2023 1:00 PM EDT [place] [address] Kia Viramontes DO [facility] [place] [address] Magdalena Peralta MD [facility] [place] [address] Positive FRANCISCO (antinuclear antibody) Social [...] 1:5120 speckled VIC negative Myositis panel with PUBLIC HEALTH TECHNOLOGIST ab 149.1 (positive) Anti U1RNP IgG 119 [...] a chair without assistance of upper extremities. Air Director strength 3+/5 bilaterally; otherwise large muscle groups [...] due to risk of retinal toxicity with custodial Plaquenil use, which she already does. Recommendations: #mixed connective tissue disease Start hydroxychloroquine 200 mg qd Labs today: repeat FRANCISCO, dsDNA, complements, CBC, CMP, CK, ESR, CRP Follow up 1 month The patient was seen and discussed with Dr. Wander Peralta MD Rheumatology Fellow Pager: [phone] CC: Kyra Haas * Kia Viramontes DO [...] EDT Office Visit Dermatology at [place] [address] [place] [address] Marek Bonilla MD [address] [facility] [place] [address] documented as of this encounter Results * Comprehensive metabolic panel (non-fasting) (03/18/2023 2:14 PM EDT) Glucose 93 65 - 199 mg/dL [facility] Comment:Diabetes: >=200 mg/d L plus symptoms Blood Urea Nitrogen 18 8 - 18 mg/dL [facility] Creatinine 0.99 0.70 - 1.20 mg/dL [facility] Sodium 141 135 - 145 mmol/L [facility] Potassium 4.5 3.5 - 5.0 mmol/L [facility] Comment: Please note: ??Patients with WBC >100,000 may have falsely elevated Potassium levels. ??For accurate Potassium quantification in these patients send serum separator tube (gold top) for subsequent determinations. ??Contact the Clinical Chemistry Laboratory if there are any questions. Chloride 106 98 - 107 mmol/L [facility] Carbon Dioxide 24 22 - 31 mmol/L [facility] Anion Gap 11 5 - 15 mmol/L [facility] Calcium 10.0 8.5 - 10.5 mg/dL [facility] Protein, Total 7.3 6.1 - 8.0 g/dL [facility] Albumin 4.3 3.2 - 5.2 g/dL [facility] Aspartate Aminotransferase 26 0 - 30 unit/L [facility] Alanine Aminotransferase 11 0 - 30 unit/L [facility] Alkaline Phosphatase 91 35 - 105 unit/L [facility] Bilirubin, Total 0.4 0.2 - 1.3 mg/dL [facility] Est Glomerular Filtration Rate 62 >=60 mL/min/1. 73 m?? [facility] Comment: This patient's estimated GFR [...] DO CHEMISTRY ORDERABL ES Performing Organization Address City/State/[facility] Co de Phone Number [facility] [place] [address] * (ABNORMAL) FRANCISCO Ab by IFA (03/18/2023 2:14 PM EDT) FRANCISCO Ab Screen Test ? Result ?Flag ??Unit ??RefValue Antinuclear Ab, HEp-2 ?Positive 1:2560 ??@ ?<1:80 (Negative) ??Substrate, S ? ADDITIONAL INFORMATION --------- ?Method: Immunofluorescence using HEp-2 cellular substrate. ??FRANCISCO Titer: ? 1:2560 ??FRANCISCO Pattern: ? Speckled ?Test Performed by: ?[facility] ?[address] [place] [address] ?Commercial Mortgage Broker: Raymond Chaudhry M.D. Ph.D.; CLIA# [id number] ([id number]) [facility] Blood 03/18/2023 2:14 PM EDT 03/18/2023 3:02 PM EDT Narrative Resulting Agency Comment Spec In Lab Kia Viramontes DO CHEMISTRY ORDERABL ES Performing Organization Address [facility] de Phone Number [facility] [place] [address] * DNA Antibody (Double-Stranded) (03/18/2023 2:14 PM EDT) [facility] dsDNA Ab <0.6 <=15.0 IU/mL [facility] Comment: <10 negative 10-15 equivocal >15 positive This dsDNA antibody result was generated using a fluoroenzyme immunoassay on the O-filmdia 250 analyzer. This quantitative test is designed to detect IgG antibodies directed against double stranded DNA in human serum. The presence of antibodies that recognize dsDNA is a highly specific marker for systemic lupus erythematosus. Please note that as of 05/26/2022 that this testing is performed by the Special Chemistry Laboratory at [facility]. This change in testing location is associated with a change is testing method and reference intervals. Please review the results of this test in association with the posted reference intervals. Blood 03/18/2023 2:14 PM EDT 03/19/2023 7:19 AM EDT Narrative Resulting Agency Comment Spec In Lab Kia Viramontes DO LAB SEND OUT ORDER JODIE Performing Organization Address [facility]/ZIP Co de Phone Number [facility] [place] [address] * CK (03/18/2023 2:14 PM EDT) Creatine Kinase 38 0 - 160 unit/L [facility] Blood 03/18/2023 2:14 PM EDT 03/18/2023 2:24 PM EDT Narrative Resulting Agency Comment Spec In Lab Kia D Wander DO CHEMISTRY ORDERABL ES Performing Organization Address [facility] Co de Phone Number [facility] [place] [address] * C4 Complement (03/18/2023 2:14 PM EDT) Complement C4 30 10 - 40 mg/dL [facility] Blood 03/18/2023 2:14 PM EDT 03/18/2023 2:24 PM EDT Narrative Resulting Agency Comment Spec In Lab Kia D Wander DO CHEMISTRY ORDERABL ES Performing Organization Address [facility] Co de Phone Number [facility] [place] [address] * C3 Complement (03/18/2023 2:14 PM EDT) Complement C3 142 90 - 180 mg/dL [facility] Blood 03/18/2023 2:14 PM EDT 03/18/2023 2:24 PM EDT Narrative Resulting Agency Comment Spec In Lab Kia D Wander DO CHEMISTRY ORDERABL ES Performing Organization Address [facility] Co de Phone Number [facility] [place] [address] * CRP, acute inflammation (03/18/2023 2:14 PM EDT) C-Reactive Protein 3.0 <=4.9 mg/L [facility] Blood 03/18/2023 2:14 PM EDT 03/18/2023 2:24 PM EDT Narrative Resulting Agency Comment Spec In Lab Kia Viramontes DO CHEMISTRY ORDERABL ES Performing Organization Address City/[facility]/ZIP Co de Phone Number [facility] [place] [address] * (ABNORMAL) Sedimentation rate (03/18/2023 2:14 PM EDT) Sedimentation Rate Automated 68(H) 2 - 39 mm/hr [facility] Comment: Effective July 12, 2019 new capillary photometric technology has resulted in a change in reference ranges. It is recommended that each ESR result be reviewed with its own age appropriate reference range. Blood 03/18/2023 2:14 PM EDT 03/18/2023 2:24 PM EDT Narrative Resulting Agency Comment Spec In Lab Kia Viramontes DO HEMATOLOGY ORDERAB LES Performing Organization Address City/[facility] Co de Phone Number [facility] [place] [address] documented in this encounter Visit Diagnoses Diagnosis Positive FRANCISCO (antinuclear antibody) Other and unspecified nonspecific immunological findings documented in this encounter Care Teams Supervisor Bindery Relationship Specialty Start Date End Date Magdalena Acosta MD [address] [place] [address] PCP - General Family Medicine 02/05/23 documented as of this encounter
--- OUTSIDE RECORDS SUMMARY | 2024-03-28 14:29 | XMS_ITS | Encounter Summary ---
Author Organization [facility] [place] [address] Care Team Providers Care Jewelry Model Maker Name Role Phone Deborah Quiroga APRN Primary Care Provider [phone] Encounter Details Date Type Department Care Team (Late st Contact Info) Description 11/09/2022 11:30 AM EDT - 11/09/2022 12:30 PM EDT [place] [address] Nitesh Escobedo MD [facility] [place] [address] CARDIAC CATHETERIZATION Social History Tobacco Use Types [...] Center 02/05/2023 2:30 PM Marek Bonilla MD [facility] New Medications to be Picked Up None For questions regarding this document or issues relating to this hospitalization on the Medical Service, please contact your inpatient physician through the [facility] Academic Advisor . Issues afterhours and on weekends will be handled by the Hospitalist staff on-call. * Attachments The following attachments cannot be sent through Care Everywhere. * Coronary Angiogram: Post-op (Northern Irish) * Right Heart Catheterization: Pulmonary Artery Catheterization: Post-op (Northern Irish) documented in this encounter Medications at Time [...] MD - 11/09/2022 11:20 AM EDT . [facility] Interventional Cardiology Adult Pre-Procedure H&P Update: Cardiac Catheterization Purnima Thacker [id number] 1955 Chief Complaint: BONILLA HPI: Purnima Thacker [...] Marrero MD Interventional Cardiology 11/09/22 11:43 AM [facility] Pager: [phone] documented in this encounter Plan of Treatment Upcoming Encounters Date Type Department Care Team (Late st Contact Info) Description 03/01/2025 4:15 PM EDT Office Visit Dermatology at [place] [address] [facility] [place] [address] Marek Bonilla MD [address] [facility] [place] [address] documented as of this encounter Procedures Procedure Name Priority Date/Time Associated Diagnosis Comments CARDIAC CATHETERIZATION Routine 11/10/19 1:05 PM EDT Aortic valve stenosis, etiology of cardiac valve disease unspecified Cath Plmt Left Heart Cath & Arts W/Inj & Angio Img S&I ([id number]) 11/09/2022 11:51 AM EDT Aortic valve stenosis, [...] ? Procedure Date: 11/09/2022 ? A #: [id number] ? Primary Physician: Nitesh Escobedo ? Case #: [id number] ? File Name: [id number] ? Catheterization Order Number: [id number] ? [facility] ? Final Report [place], [place] ? Patient Name: ? Purnima M. Kirstie ? ID#: ?[id number] ? : ?1955 ? Procedure Date: ? [...] (Bezet) 457 ms MUSE SYSTEM Calculated P Alpha 44 degrees MUSE SYSTEM Calculated R Alpha 33 degrees MUSE SYSTEM Calculated T Alpha 30 degrees MUSE SYSTEM INTERPRETATION Sinus rhythm Occasional Premature ventricular complexes Otherwise normal ECG When compared with ECG of 21-SEP-2016 12:26, Premature ventricular complexes are now Present LA interval has decreased Nonspecific T wave abnormality has replaced inverted T waves in Inferior leads I personally reviewed the tracing and edited the fellows interpretation Confirmed by fellow MD Anitha, Carissa ([id number]) on 11/09/2022 6:17:28 PM Confirmed by Elsa [...] MD) documented in this encounter Care Teams Jewelry Model Maker Relationship Specialty Start Date End Date Deborah Quiroga, BOATWRIGHT PCP - General Family Medicine 03/24/16 02/04/23 documented as of this encounter
--- OUTSIDE RECORDS SUMMARY | 2024-03-28 14:29 | XMS_ITS | Encounter Summary ---
[place] [address] Care Team Providers Care Enamel Pulverizer Name Role Phone Magdalena Acosta MD Primary Care Provider [phone] Reason for Visit * Reason Comments Annual Exam Encounter Details Date Type Department Care Team (Late st Contact Info) Description 02/05/2023 2:30 PM EDT Office Visit Dermatology at [address] [address] Marek Bonilla MD [address] [facility] [place] [address] Rosacea; Ocular rosacea; Nevus Social History Tobacco [...] cutaneous and ocular 2. Previously told by breaker machine operator that she had corneal tears [...] PM EDT Office Visit Dermatology at [address] [phone] Marek Bonilla MD [address] [facility] [place] [address] documented as of this encounter Visit Diagnoses Diagnosis Rosacea Ocular rosacea Rosacea Nevus Benign neoplasm of skin, site unspecified documented in this encounter Care Teams Enamel Pulverizer Relationship Specialty Start Date End Date Magdalena Acosta MD [address] [place] [address] PCP - General Family Medicine 02/05/23 documented as of this encounter
--- OUTSIDE RECORDS SUMMARY | 2024-03-28 14:29 | XMS_ITS | Encounter Summary ---
[place] [address] Care Team Providers Care Spanish Tutor Name Role Phone Magdalena Acosta MD Primary [...] PM EDT Office Visit Dermatology at [address] [place] [address] Marek Bonilla MD [address] [facility] [place] [address] documented as of this encounter Visit Diagnoses Not on filedocumented in this encounter Care Teams Spanish Tutor Relationship Specialty Start Date End Date Magdalena Acosta MD [address] [place] [address] PCP - General Family Medicine 02/05/23 documented as of this encounter
--- OUTSIDE RECORDS SUMMARY | 2024-03-28 14:29 | XMS_ITS | Encounter Summary ---
[place] [address] Care Team Providers Care Hand Spring Former Name Role Phone Magdalena Acosta MD Primary Care Provider [phone] Encounter Details Date Type Department Care Team (Latest Contact Info) Description 03/18/2023 2:30 PM EDT Laboratory Appointment Lab [address] [phone] Positive FRANCISCO (antinuclear antibody) Social History Tobacco [...] 4:15 PM EDT Office Visit Dermatology at [place] [address] [place] [phone] Marek Bonilla MD [address], [place] [address] documented as of this encounter Procedures Procedure [...] 2:14 PM EDT) Neutrophil % 71.2 % [facility] Neutrophil Absolute 2.26 1.70 - 6.10 x10(3)/mc L [facility] Lymph % 18.2 % [facility] Lymphocytes Abs 0.6(L) 0.9 - 3.2 x10(3)/mc L [facility] Monocyte % 9.7 % [facility] Monocyte Abs 0.3 0.3 - 0.9 x10(3)/mc L [facility] Eos % 0.3 % [facility] Eosinophils Abs 0.0 0.0 - 0.4 x10(3)/mc L [facility] Basophil % 0.6 % [facility] Baso Absolute 0.0 0.0 - 0.1 x10(3)/[facility] Immature Gran % 0.00 % [facility] Comment: Immature granulocytes(IG's)percentage and absolute count will include metamyelocytes, myelocytes, and promyelocytes. Blood smears from CBCs yielding IG's will be scanned manually for concordance. If this scan disagrees with the automated IG or if promyelocytes are noted, a manual differential will be performed. Immature Gran Absolute 0.00 0.00 - 0.04 x10(3)/[facility] Blood 03/18/2023 2:14 PM EDT 03/18/2023 2:24 PM EDT Narrative Resulting Agency Comment Spec In Lab Magdalena Peralta MD HEMATOLOGY ORDERABLE S Performing Organization Address City/State/[facility] Co de Phone Number [facility] [place] [address] * (ABNORMAL) Hemogram (03/18/2023 2:14 PM EDT) White Blood Cell 3.2(L) 4.0 - 9.5 x10(3)/[facility] Red Blood Cell 3.44(L) 4.00 - 5.21 x10(6)/[facility] Hemoglobin 11.1(L) 11.7 - 15.5 g/dL [facility] Hematocrit 32.9(L) 35.7 - 45.8 % [facility] Mean Cell Volume 95.6(H) 82.6 - 94.4 fL [facility] Mean Cell Hemoglobin 32.3(H) 27.1 - 32.0 pg [facility] Mean Cell Hemoglobin Concentration 33.7 31.7 - 35.0 g/dL [facility] Platelet 144(L) 145 - 357 x10(3)/[facility] RDW Standard Deviation 42.6 37.0 - 46.0 fL [facility] RDW coefficient of variation 12.3 11.5 - 14.1 % [facility] Mean Platelet Volume 9.4 7.6 - 12.9 fL [facility] NRBC% auto 0.0 % [facility] NRBC Absolute 0.000 0.000 - 0.000 x10(3)/mc L [facility] Blood 03/18/2023 2:14 PM EDT 03/18/2023 2:24 PM EDT Narrative Resulting Agency Comment Spec In Lab Magdalena Peralta MD HEMATOLOGY ORDERABLE S Performing Organization Address [facility] Co de Phone Number [facility] [place] [address] * (ABNORMAL) Sedimentation rate (03/18/2023 2:14 PM EDT) Sedimentation Rate Automated 68(H) 2 - 39 mm/hr [facility] Comment: Effective July 12, 2019 new capillary photometric technology has resulted in a change in reference ranges. It is recommended that each ESR result be reviewed with its own age appropriate reference range. Blood 03/18/2023 2:14 PM EDT 03/18/2023 2:24 PM EDT Narrative Resulting Agency Comment Spec In Lab Kia Viramontes DO HEMATOLOGY ORDERAB LES Performing Organization Address [facility] Co de Phone Number [facility] [place] [address] * CRP, acute inflammation (03/18/2023 2:14 PM EDT) C-Reactive Protein 3.0 <=4.9 mg/L [facility] Blood 03/18/2023 2:14 PM EDT 03/18/2023 2:24 PM EDT Narrative Resulting Agency Comment Spec In Lab Kia Viramontes DO CHEMISTRY ORDERABL ES Performing Organization Address [facility] Co de Phone Number [facility] [place] [address] * C3 Complement (03/18/2023 2:14 PM EDT) Complement C3 142 90 - 180 mg/dL [facility] Blood 03/18/2023 2:14 PM EDT 03/18/2023 2:24 PM EDT Narrative Resulting Agency Comment Spec In Lab Kia Viramontes DO CHEMISTRY ORDERABL ES Performing Organization Address [facility] de Phone Number [facility] [place] [address] * C4 Complement (03/18/2023 2:14 PM EDT) Complement C4 30 10 - 40 mg/dL [facility] Blood 03/18/2023 2:14 PM EDT 03/18/2023 2:24 PM EDT Narrative Resulting Agency Comment Spec In Lab Kia Viramontes DO CHEMISTRY ORDERABL ES Performing Organization Address [facility] de Phone Number [facility] [place] [address] * CK (03/18/2023 2:14 PM EDT) Creatine Kinase 38 0 - 160 unit/L [facility] Blood 03/18/2023 2:14 PM EDT 03/18/2023 2:24 PM EDT Narrative Resulting Agency Comment Spec In Lab Kia Viramontes DO CHEMISTRY ORDERABL ES Performing Organization Address [facility] de Phone Number [facility] [place] [address] * DNA Antibody (Double-Stranded) (03/18/2023 2:14 PM EDT) dsDNA Ab <0.6 <=15.0 IU/mL [facility] Comment: <10 negative 10-15 equivocal >15 positive This dsDNA antibody result was generated using a fluoroenzyme immunoassay on the [employer] 250 analyzer. This quantitative test is designed to detect IgG antibodies directed against double stranded DNA in human serum. The presence of antibodies that recognize dsDNA is a highly specific marker for systemic lupus erythematosus. Please note that as of 05/26/2022 that this testing is performed by the Special Chemistry Laboratory at [facility]. This change in testing location is associated with a change is testing method and reference intervals. Please review the results of this test in association with the posted reference intervals. Blood 03/18/2023 2:14 PM EDT 03/19/2023 7:19 AM EDT Narrative Resulting Agency Comment Spec In Lab Kia Viramontes DO LAB SEND OUT ORDER JODIE [facility] [place] [address] * (ABNORMAL) FRANCISCO Ab by IFA (03/18/2023 2:14 PM EDT) FRANCISCO Ab Screen Test ? Result ?Flag ??Unit ??RefValue Antinuclear Ab, HEp-2 ?Positive 1:2560 ??@ ?<1:80 (Negative) ??Substrate, S ? ADDITIONAL INFORMATION --------- ?Method: Immunofluorescence using HEp-2 cellular substrate. ??FRANCISCO Titer: ? 1:2560 ??FRANCISCO Pattern: ? Speckled ?Test Performed by: ?[facility] ?[address] [place] [address] ?Electric Motor Rebuilder: Raymond Chaudhry M.D. Ph.D.; CLIA# [id number] ([id number]) [facility] Blood 03/18/2023 2:14 PM EDT 03/18/2023 3:02 PM EDT Narrative Resulting Agency Comment Spec In Lab Kia James Wander DO CHEMISTRY ORDERABL ES [facility] [place] [address] * Comprehensive metabolic panel (non-fasting) (03/18/2023 2:14 PM EDT) Glucose 93 65 - 199 mg/dL [facility] Comment:Diabetes: >=200 mg/d L plus symptoms Blood Urea Nitrogen 18 8 - 18 mg/dL [facility] Creatinine 0.99 0.70 - 1.20 mg/dL [facility] Sodium 141 135 - 145 mmol/L [facility] Potassium 4.5 3.5 - 5.0 mmol/L [facility] Comment: Please note: ??Patients with WBC >100,000 may have falsely elevated Potassium levels. ??For accurate Potassium quantification in these patients send serum separator tube (gold top) for subsequent determinations. ??Contact the Clinical Chemistry Laboratory if there are any questions. Chloride 106 98 - 107 mmol/L [facility] Carbon Dioxide 24 22 - 31 mmol/L [facility] Anion Gap 11 5 - 15 mmol/L [facility] Calcium 10.0 8.5 - 10.5 mg/dL [facility] Protein, Total 7.3 6.1 - 8.0 g/dL [facility] Albumin 4.3 3.2 - 5.2 g/dL [facility] Aspartate Aminotransferase 26 0 - 30 unit/L [facility] Alanine Aminotransferase 11 0 - 30 unit/L [facility] Alkaline Phosphatase 91 35 - 105 unit/L [facility] Bilirubin, Total 0.4 0.2 - 1.3 mg/dL [facility] Est Glomerular Filtration Rate 62 >=60 mL/min/1. 73 m?? [facility] Comment: This patient's estimated GFR [...] DO CHEMISTRY ORDERABL ES Performing Organization Address City/State/[facility] [place] [address] documented in this encounter Visit Diagnoses Diagnosis Positive FRANCISCO (antinuclear antibody) Other and unspecified nonspecific immunological findings documented in this encounter Care Teams Hand Spring Former Relationship Specialty Start Date End Date Magdalena Acosta MD [address] [place] [address] PCP - General Family Medicine 02/05/23 documented as of this encounter
--- OUTSIDE RECORDS SUMMARY | 2024-03-28 14:30 | XMS_ITS | Encounter Summary ---
Author Organization [facility] Address [facility] [place] [address] Care Team Providers Care Bookbinder Apprentice Name Role Phone Deborah Quiroga APRN Primary Care Provider [phone] Encounter Details Date Type Department Care Team (Late st Contact Info) Description 02/06/2020 Orders Only [place]ematology [place] [address] Markel Borjas MD [facility] [place] [address] Neutropenia, unspecified type Social History Tobacco Use [...] PM EDT Office Visit Dermatology at [place] [address] [place] [address] Marek Bonilla MD [address] [place] [address] documented as of this encounter Visit Diagnoses Diagnosis Neutropenia, unspecified type documented in this encounter Care Teams Bookbinder Apprentice Relationship Specialty Start Date End Date Deborah Quiroga APRN PCP - General Family Medicine 03/24/16 02/04/23 documented as of this encounter
--- OUTSIDE RECORDS SUMMARY | 2024-03-28 14:30 | XMS_ITS | Encounter Summary ---
Author Organization [facility] Address [facility] [place] [address] Care Team Providers Care Inside Sales Specialist Name Role Phone Deborah Quiroga APRN Primary Care Provider [phone] Encounter Details Date Type Department Care Team (Late st Contact Info) Description 03/01/2020 11:30 AM EDT Office Visit H[place] [phone] Patrick Borjas MD [facility] [facility] [address] [place] [address] Neutropenia, unspecified type Social History Tobacco Use [...] 03/01/2020 11:30 AM EDT Hematology Outpatient Clinic [facility] Hematology Outpatient Consult Note CC: 60 [...] TOUCH PREP, CLOT SECTION, CORE ??BIOPSY); [OSR# [id number], COLLECTED 06/23/2016, 19 SLIDES]: ?1. 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 Extremities: No edema. Labs: Hgb= 12.4 Sddv=014 ANC= 2.5 Imaging As above - reviewed [...] PM EDT Office Visit Dermatology at [address] [address] Marek Bonilla MD [address], [place] [address] documented as of this encounter Visit Diagnoses Diagnosis Neutropenia, unspecified type documented in this encounter Care Teams Inside Sales Specialist Relationship Specialty Start Date End Date Deborah Quiroga APRN PCP - General Family Medicine 03/24/16 02/04/23 documented as of this encounter
--- OUTSIDE RECORDS SUMMARY | 2024-03-28 14:30 | XMS_ITS | Encounter Summary ---
[place] [address] Care Team Providers Care Brand Marketing Intern Name Role Phone Deborah Quiroga APRN Primary Care Provider [phone] Encounter Details Date Type Department Care Team (Late st Contact Info) Description 06/05/2021 Interpretation Only [address] [address] Deborah Quiroga BOILER PLANT OPERATOR [address] [address] Social History Tobacco Use Types Packs/Day Years [...] 4:15 PM EDT Office Visit Dermatology at [place] [address] [place] [address] Marek Bonilla MD [address], [place] [address] documented as of this encounter Procedures Procedure Name Priority Date/Time Associated Diagnosis Comments MAMMO SCREENING CAD AND CATRACHITO BILATERAL Routine 06/05/2021 11:42 AM EDT documented in this encounter Results * Mammo Screening Cad and Catrachito Bilateral (06/05/2021 11:42 AM EDT) PT CLASS O DH RAD ADMITDTTM DH RAD PT DH RAD INFO [id number]^EVERET T^DEBORAH^E DH RAD EXAM DESC MADDSCTO^BREAST SCREEN [...] questions please contact the health health care administrator that requested your imaging first. ? Electronically signed by: Rocael Villatoro MD, [facility] ([phone]), at 06/05/2021 1:27 PM Narrative 06/05/2021 1:27 [...] have questions please contactthe health health care administrator that requested your imaging first. Electronically signed by: Rocael Villatoro MD, [facility]([phone]), at 06/05/2021 1:27 PM Deborah Quiroga APRN IMG MAMMO ORDERABLE S documented in this encounter Visit Diagnoses Not on filedocumented in this encounter Care Teams Brand Marketing Intern Relationship Specialty Start Date End Date Deborah Quiroga APRN PCP - General Family Medicine 03/24/16 02/04/23 documented as of this encounter
--- OUTSIDE RECORDS SUMMARY | 2024-03-28 14:30 | XMS_ITS | Encounter Summary ---
[place] [address] Care Team Providers Care Household Refrigeration Mechanic Name Role Phone Deborah Quiroga APRN Primary Care Provider [phone] Encounter Details Date Type Department Care Team [...] PM EDT Office Visit Dermatology at [address] [place] [address] Marek Bonilla MD [address], [place] [address] documented as of this encounter Visit Diagnoses Not on filedocumented in this encounter Care Teams Household Refrigeration Mechanic Relationship Specialty Start Date End Date Deborah Quiroga APRN PCP - General Family Medicine 03/24/16 02/04/23 documented as of this encounter
--- OUTSIDE RECORDS SUMMARY | 2024-03-28 14:30 | XMS_ITS | Encounter Summary ---
Author Organization [facility] Address [facility] [place] [address] Care Team Providers Care Cable Worker Helper Name Role Phone Ashley Quirogazac Shields APRN Primary Care Provider [phone] Reason for Referral * Consultation (Routine) - Closed Specialty Diagnoses / Procedures Referred By Contac t Referred To Contact Neurology Diagnoses Neck pain Popeye Rogers MD [facility] [place] [address] Kyra Haas MD [facility] [address] [address] Referral ID Status Reason Start Date Expiration Date V isits Requested Visits Authorized [id number] Closed Consult, Test & Treat 06/29/2022 06/29/2023 1 1 Reason for Visit * Reason Comments Neck Pain Weak in both arms, p ain and tingling in arms and hands Encounter Details Date Type Department Care Team (Late st Contact Info) Description 06/29/2022 10:20 AM EST Office Visit [facility] [place] [address] Popeye Rogers MD [facility] [place] [address] Neck pain Social History Tobacco Use Types [...] have EMG and nerve conduction studies in [place] that showed carpal tunnel syndrome. I do not have a copy of that report. documented in this encounter Plan of Treatment Upcoming Encounters Date Type Department Care Team (Late st Contact Info) Description 03/01/2025 4:15 PM EDT Office Visit Dermatology at [place] [address] [address] Marek Bonilla MD [address], [place] [address] Scheduled Referrals Name Type Priority Associated Diagnoses Orde r Schedule Referral to Neurology Outpatient Referral Routine Neck pain Ordered: 06/29/2022 documented as of this encounter Visit Diagnoses Diagnosis Neck pain Cervicalgia documented in this encounter Care Teams Cable Worker Helper Relationship Specialty Start Date End Date Deborah Quiroga APRN PCP - General Family Medicine 03/24/16 02/04/23 documented as of this encounter
--- OUTSIDE RECORDS SUMMARY | 2024-03-28 14:30 | XMS_ITS | Encounter Summary ---
[place] [address] Care Team Providers Care Contracting Support Specialist Name Role Phone Deborah Quiroga APRN Primary Care Provider [phone] Encounter Details Date Type Department Care Team [...] PM EDT Office Visit Dermatology at [address] [place] [address] Marek Bonilla MD [address] [place] [address] documented as of this encounter Visit Diagnoses Not on filedocumented in this encounter Care Teams Contracting Support Specialist Relationship Specialty Start Date End Date Deborah Quiroga APRN PCP - General Family Medicine 03/24/16 02/04/23 documented as of this encounter
--- OUTSIDE RECORDS SUMMARY | 2024-03-28 14:30 | XMS_ITS | Encounter Summary ---
[place] [address] Care Team Providers Care Eyelet Row Marker Name Role Phone Ashley Quirogan Cornelius ANURAG Primary Care Provider [phone] Reason for Visit * Reason Comments Skin Check Encounter Details Date Type Department Care Team (Late st Contact Info) Description 11/11/2020 10:45 AM EDT Office Visit Dermatology at [address] [place] [address] Marek Bonilla MD [address], [address] A DERMATOLOGY [place], [place] [phone] Rosacea; Acrochordon Social History Tobacco Use Types [...] Discussed the possibility of getting this through [facility] or from the [facility] pharmacy if necessary. She has not yet [...] EDT Office Visit Dermatology at [place] [address] [place] [address] Marek Bonilla MD [address] [facility], [place] [address] documented as of this encounter Visit Diagnoses Diagnosis Rosacea Acrochordon Unspecified hypertrophic and atrophic condition of skin documented in this encounter Care Teams Eyelet Row Marker Relationship Specialty Start Date End Date Deborah Quiroga APRN PCP - General Family Medicine 03/24/16 02/04/23 documented as of this encounter
--- OUTSIDE RECORDS SUMMARY | 2024-03-28 14:30 | XMS_ITS | Encounter Summary ---
[place] [address] Care Team Providers Care Bead Wrapper Name Role Phone Deborah Quiroga APRN Primary Care Provider Encounter Details Date Type Department Care Team (Late st Contact Info) Description 07/21/2017 Orders Only H[place]ology [place] [address] Alexandrea Greenwood RN Other neutropenia Social History [...] 4:15 PM EDT Office Visit Dermatology at [place] [address] [place] [address] Marek Bonilla MD [address], [place] [address] documented as of this encounter Visit Diagnoses Diagnosis Other neutropenia documented in this encounter Care Teams Bead Wrapper Relationship Specialty Start Date End Date Deborah Quiroga APRN PCP - General Family Medicine 03/24/16 02/04/23 documented as of this encounter
--- OUTSIDE RECORDS SUMMARY | 2024-03-28 14:30 | XMS_ITS | Encounter Summary ---
[place] [address] Care Team Providers Care Wallpaper Consultant Name Role Phone Deborah Quiroga APRN Primary Care Provider [phone] Encounter Details Date Type Department Care Team (Latest Contact Info) Description 10/14/2016 - 10/14/2016 11:59 PM EDT Hospital Encounter [place] [address] Alirio Esparza MD Pain Discharge Disposition: Home [...] 4:15 PM EDT Office Visit Dermatology at [place] [address] [place] [address] Marek Bonilla MD [address] [place] [address] documented as of this encounter Procedures Procedure Name Priority Date/Time Associated Diagnosis Comments FILM LIBRARY STORAGE ONLY DX CHEST Routine 10/14/2016 12:00 AM EDT Pain documented in this encounter Results * Film Library- Storage Only DX Chest (10/14/2016 12:00 AM EDT) Narrative [facility] - 10/14/2016 5:16 PM EDT This exam is for storage only and is auto-finalizing. Alirio Esparza MD IMG FILM LIBRARY OR DERABLES [place], [place] documented in this encounter Visit Diagnoses Diagnosis Pain Generalized pain documented in this encounter Care Teams Wallpaper Consultant Relationship Specialty Start Date End Date Deborah Quiroga APRN PCP - General Family Medicine 03/24/16 02/04/23 documented as of this encounter
--- OUTSIDE RECORDS SUMMARY | 2024-03-28 14:30 | XMS_ITS | Encounter Summary ---
Author Organization [facility] Address [facility] [place] [address] Care Team Providers Care Shoe Puller Name Role Phone Junaid Deborah Shields APRN Primary Care Provider [phone] Encounter Details Date Type Department Care Team (Latest Contact Info) Description 06/22/2022 10:00 AM EST Office [place] [phone] Raymond Loredo MD [facility] [address] Raynaud's phenomenon without gangrene; Positive FRANCISCO (antinuclear [...] be done locally or here at [facility] that the current time is [...] surgery by Dr. Rogers here at [facility]. In addition to painful dysesthesias [...] 4:15 PM EDT Office Visit Dermatology at [place] [address] [facility] [place] [address] Marek Bonilla MD [address] [facility] [place] [address] documented as of this encounter Visit Diagnoses Diagnosis Raynaud's phenomenon without gangrene Positive FRANCISCO (antinuclear antibody) Other and unspecified nonspecific immunological findings Primary osteoarthritis involving multiple joints Cervical disc disorder at C6-C7 level with radiculopathy documented in this encounter Care Teams Shoe Puller Relationship Specialty Start Date End Date Deborah Quiroga APRN PCP - General Family Medicine 03/24/16 02/04/23 documented as of this encounter
--- OUTSIDE RECORDS SUMMARY | 2024-03-28 14:30 | XMS_ITS | Encounter Summary ---
Author Organization [facility] [place] [address] Care Team Providers Care Electrical Products Sales Engineer Name Role Phone Ashley Quirogan Sylvia ANURAG Primary Care Provider [phone] Reason for Visit * Reason Onset Date Comments Results 12/03/2016 Encounter Details Date Type Department Care Team (Late Contact Info) Description 12/03/2016 Telephone Hematology [place] [address] Yudith Valentien RN Results Social History Tobacco Use Types [...] EDT RN received call from Maddy at [facility] reporting critical WBC at 1.61, and ANC of 0.5. She will fax the full results to this office for quality review specialist notified DR Borjas of above results documented in this encounter Plan of Treatment Upcoming Encounters Date Type Department Care Team (Late st Contact Info) Description 03/01/2025 4:15 PM EDT Office Visit Dermatology at [address] [address] Marek Bonilla MD [address], [place] [address] documented as of this encounter Visit Diagnoses Not on filedocumented in this encounter Care Teams Electrical Products Sales Engineer Relationship Specialty Start Date End Date Deborah Quiroga APRN PCP - General Family Medicine 03/24/16 02/04/23 documented as of this encounter
--- OUTSIDE RECORDS SUMMARY | 2024-03-28 14:30 | XMS_ITS | Encounter Summary ---
Author Organization Formerly [facility] [place] [address] Care Team Providers Care Evaporator Name Role Phone Deborah Quiroga APRN Primary Care Provider [phone] Encounter Details Date Type Department Care Team (Late st Contact Info) Description 11/02/2022 Orders Only [place]idential [place] [address] Emily Lyons PA [facility] [place] [address] Aortic valve stenosis, etiology of cardiac valve [...] 4:15 PM EDT Office Visit Dermatology at [place] [address] [place] [address] Marek Bonilla MD [address], [place] [address] documented as of this encounter Visit Diagnoses Diagnosis Aortic valve stenosis, etiology of cardiac valve disease unspecified documented in this encounter Care Teams Evaporator Relationship Specialty Start Date End Date Deborah Quiroga APRN PCP - General Family Medicine 03/24/16 02/04/23 documented as of this encounter
--- OUTSIDE RECORDS SUMMARY | 2024-03-28 14:30 | XMS_ITS | Encounter Summary ---
[place] [address] Care Team Providers Care Regional Company Hazmat Tanker Driver Name Role Phone Deborah Quiroga APRN Primary Care Provider [phone]- [phone] Encounter Details Date Type Department Care Team (Late st Contact Info) Description 06/05/2021 Interpretation Only [address] [address] Deborah Quiroga INFORMATICS ANALYST [address] [address] Social History Tobacco Use Types Packs/Day Years [...] 4:15 PM EDT Office Visit Dermatology at [place] [address] [place] [address] Marek Bonilla MD [address] [facility], [place] [address] documented as of this encounter Procedures Procedure Name Priority Date/Time Associated Diagnosis Comments MAMMO SCREENING CAD BILATERAL Routine 06/05/2021 11:42 AM EDT documented in this encounter Results * Mammo Screening Cad Bilateral (06/05/2021 11:42 AM EDT) PT CLASS O DH RAD ADMITDTTM DH RAD PT RAD INFO [id number]^EV ERETT^DEBORAH^E DH RAD EXAM DESC MADDSC^SCREEN MAMMO [...] who have questions please contact the health primary care provider that requested your imaging first. [...] patients who have questions please contactthe health primary care provider that requested your imaging first. Electronically signed by: Rocael Villatoro MD, [facility]([phone]), at 06/05/2021 1:27 PM Deborah Quiroga APRN IMGerman MAMMO ORDERABLE S documented in this encounter Visit Diagnoses Not on filedocumented in this encounter Care Teams Regional Company Hazmat Tanker Driver Relationship Specialty Start Date End Date Deborah Quiroga APRN PCP - General Family Medicine 03/24/16 02/04/23 documented as of this encounter
--- OUTSIDE RECORDS SUMMARY | 2024-03-28 14:30 | XMS_ITS | Encounter Summary ---
[place] [address] Care Team Providers Care Childbirth Educator Name Role Phone Deborah Quiroga APRN Primary Care Provider [phone]- [phone] Encounter Details Date Type Department Care Team [...] PM EDT Office Visit Dermatology at [address] [place] [address] Marek Bonilla MD [address], [place] [address] documented as of this encounter Visit Diagnoses Not on filedocumented in this encounter Care Teams Childbirth Educator Relationship Specialty Start Date End Date Deborah Quiroga APRN PCP - General Family Medicine 03/24/16 02/04/23 documented as of this encounter
--- OUTSIDE RECORDS SUMMARY | 2024-03-28 14:30 | XMS_ITS | Encounter Summary ---
[place] [address] Care Team Providers Care Production Line Solderer Name Role Phone Deborah Quiroga ANURAG Primary Care Provider [phone] Encounter Details Date Type Department Care Team (Late st Contact Info) Description 06/18/2017 External Results Hematology [place] [address] Alexandrea [place] RN Neutropenia, unspecified type Social [...] 4:15 PM EDT Office Visit Dermatology at [place] [address] [place] [phone] Marek Bonilla MD [address], [place] [address] documented as of this encounter Procedures Procedure [...] documented in this encounter Care Teams Production Line Solderer Relationship Specialty Start Date End Date Deborah Quiroga APRN PCP - General Family Medicine 03/24/16 02/04/23 documented as of this encounter
--- OUTSIDE RECORDS SUMMARY | 2024-03-28 14:30 | XMS_ITS | Encounter Summary ---
Author Organization [facility] Address [facility] [place] [address] Care Team Providers Care Manager Pricing Name Role Phone Deborah Quiroga APRN Primary Care Provider [phone] Encounter Details Date Type Department Care Team (Late st Contact Info) Description 06/18/2017 11:00 AM EST Office Visit Hematology [place] [address] Markel Borjas MD [facility] [address] [place] [address] Neutropenia, unspecified type Social History Tobacco Use [...] 06/18/2017 11:00 AM EST Hematology Outpatient Clinic [facility] Hematology Outpatient Consult Note CC: 60 [...] TOUCH PREP, CLOT SECTION, CORE ??BIOPSY); [OSR# [id number], COLLECTED 06/23/2016, 19 SLIDES]: ?1. ??Normocellular marrow [...] a clonal lymphoproliferative or myeloproliferative disorder (OSR# [id number]) Chromosome analysis on the marrow aspirate revealed [...] working the same job and participating in [employer] patients. Past Medical/Surgical History: 1. Leukopenia -element of neutropenia, as noted above 2. Aortic Stenosis -severe -AVR surgery 3. Hypercholesterolemia 4. Depression 5. Hypertension 6. 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 Extremities: No edema. Labs: Hgb= 13 Mywf=747 ANC= 0.6 Imaging As above - reviewed [...] 4:15 PM EDT Office Visit Dermatology at [place] [address] [place] [address] Marek Bonilla MD [address], [address] [place] [address] documented as of this encounter Visit Diagnoses Diagnosis Neutropenia, unspecified type documented in this encounter Care Teams Manager Pricing Relationship Specialty Start Date End Date Deborah Quiroga APRN PCP - General Family Medicine 03/24/16 02/04/23 documented as of this encounter
--- OUTSIDE RECORDS SUMMARY | 2024-03-28 14:30 | XMS_ITS | Encounter Summary ---
Author Organization [facility] Address [facility] [place] [address] Care Team Providers Care Last Dipper Name Role Phone Deborah Quiroga APRN Primary Care Provider [phone] Encounter Details Date Type Department Care Team (Latest Contact Info) Description 07/03/2022 12:28 PM EST - 07/03/2022 1:35 PM EST Hospital Encounter [place] [address] Chronic idiopathic neutropenia Discharge Disposition: Home Social [...] 4:15 PM EDT Office Visit Dermatology at [place] [address] [place] [address] Marek Bonilla MD [address], [address] [address] documented as of this encounter Procedures Procedure [...] (ABNORMAL) Differential, Automated (07/03/2022 12:40 PM EST) [facility] Neutrophil % 72.9 % [facility] Neutrophil Absolute 2.61 1.70 - 6.10 x10(3)/[facility] Lymph % 18.4 % [facility] Lymphocytes Abs 0.7(L) 0.9 - 3.2 x10(3)/[facility] Monocyte % 8.4 % [facility] Monocyte Abs 0.3 0.3 - 0.9 x10(3)/[facility] Eos % 0.0 % [facility] Eosinophils Abs 0.0 0.0 - 0.4 x10(3)/[facility] Basophil % 0.3 % [facility] Baso Absolute 0.0 0.0 - 0.1 x10(3)/[facility] Immature Gran % 0.00 % [facility] Comment: Immature granulocytes(IG's)percentage and absolute count will include metamyelocytes, myelocytes, and promyelocytes. Blood smears from CBCs yielding IG's will be scanned manually for concordance. If this scan disagrees with the automated IG or if promyelocytes are noted, a manual differential will be performed. Immature Gran Absolute 0.00 0.00 - 0.04 x10(3)/[facility] Blood 07/03/2022 12:4 0 PM EST 07/03/2022 1:03 PM EST Narrative Resulting Agency Comment Spec In Lab Markel Borjas MD HEMATOLOGY ORDERAB LES [facility] [place] [address] * (ABNORMAL) Hemogram (07/03/2022 12:40 PM EST) White Blood Cell 3.6(L) 4.0 - 9.5 x10(3)/[facility] Red Blood Cell 3.61(L) 4.00 - 5.21 x10(6)/mc L [facility] Hemoglobin 11.7 11.7 - 15.5 g/dL [facility] Hematocrit 34.5(L) 35.7 - 45.8 % [facility] Mean Cell Volume 95.6(H) 82.6 - 94.4 fL [facility] Mean Cell Hemoglobin 32.4(H) 27.1 - 32.0 pg [facility] Mean Cell Hemoglobin Concentration 33.9 31.7 - 35.0 g/dL [facility] Platelet 171 145 - 357 x10(3)/mc L [facility] RDW Standard Deviation 40.5 37.0 - 46.0 fL [facility] RDW coefficient of variation 11.5 11.5 - 14.1 % [facility] Mean Platelet Volume 9.2 7.6 - 12.9 [facility] NRBC% auto 0.0 % [facility] NRBC Absolute 0.000 0.000 - 0.000 x10(3)/mc L [facility] Blood 07/03/2022 12:4 0 PM EST 07/03/2022 1:03 PM EST Narrative Resulting Agency Comment Spec In Lab Markel Borjas MD HEMATOLOGY ORDERAB LES [facility] [place] [address] * (ABNORMAL) Comprehensive metabolic panel (non-fasting) (07/03/2022 12:40 PM EST) Glucose 92 65 - 199 mg/dL [facility] Comment:Diabetes: >=200 mg/d L plus symptoms Blood Urea Nitrogen 22(H) 8 - 18 mg/dL [facility] [...] mmol/L [facility] Carbon Dioxide 23 22 - 31 mmol/L [facility] Anion Gap 11 5 - 15 mmol/L [facility] Calcium 10.1 8.5 - 10.5 mg/dL [facility] Protein, Total 7.6 6.1 - 8.0 g/dL [facility] Albumin 4.1 3.2 - 5.2 g/dL [facility] Aspartate Aminotransferase 25 0 - 30 unit/L [facility] Alanine Aminotransferase 14 0 - 30 unit/L [facility] Alkaline Phosphatase 80 35 - 105 unit/L [facility] Bilirubin, Total 0.3 0.2 - 1.3 mg/dL [facility] Est Glomerular Filtration Rate 81 >=60 mL/min/1. 73 m?? [facility] [...] CHEMISTRY ORDERABL ES [facility] [place] [address] documented in this encounter Visit Diagnoses Diagnosis Chronic idiopathic neutropenia Other neutropenia documented in this encounter Care Teams Last Dipper Relationship Specialty Start Date End Date Deborah Quiroga APRN PCP - General Family Medicine 03/24/16 02/04/23 documented as of this encounter
--- OUTSIDE RECORDS SUMMARY | 2024-03-28 14:30 | XMS_ITS | Encounter Summary ---
Author Organization [facility] Address [facility] Erika [facility] [place] [address] Care Team Providers Care Glaze Maker Name Role Phone Deborah Quiroga APRN Primary Care Provider [phone] Reason for Visit * Consultation (Routine) - Closed Specialty Diagnoses / Procedures Referred By Contkrystle t Referred To Contact Rheumatology Diagnoses Positive FRANCISCO (antinuclear antibody) Arthralgia, unspecified joint Sandy Wu APRN [address] [place] [address] [facility] [address] [place] [address] Referral ID Status Reason Start Date Expiration Date V isits Requested Visits Authorized [id number] Closed Consult, Test & Treat PCP Updated and/or Approved 01/01/2022 01/01/2023 6 6 Encounter Details Date Type Department Care Team (Latest Contact Info) Description 01/20/2022 10:00 AM EDT Office [place] [address] Raymond Loredo MD [facility] [place] [address] Rosacea; Raynaud's phenomenon without gangrene; [...] over radiocarpal or ulnocarpal joints. Hands: Normal narrow gauge operator and claw. SJC/TJC 0/0. Hips: Full [...] can be done locally or here at [facility] that the current time is not particularly interested it seems Raymond Loredo MD documented in this encounter Plan of Treatment Upcoming Encounters Date Type Department Care Team (Late st Contact Info) Description 03/01/2025 4:15 PM EDT Office Visit Dermatology at [place] [address] [place] [address] Marek Bonilla MD [address], [address] [place] [address] Scheduled Referrals Name Type Priority Associated Diagnoses [...] syndrome documented in this encounter Care Teams Glaze Maker Relationship Specialty Start Date End Date Deborah Quiroga APRN PCP - General Family Medicine 03/24/16 02/04/23 documented as of this encounter
--- OUTSIDE RECORDS SUMMARY | 2024-03-28 14:30 | XMS_ITS | Encounter Summary ---
Author Organization [facility] [place] [address] Care Team Providers Care Speech Clinician Name Role Phone Deborah Quiroga APRN Primary Care Provider [phone]- [phone] Reason for Referral * Consultation (Routine) - Closed Specialty Diagnoses / Procedures Referred By Crispin maxwell Referred To Contact Neurology Diagnoses Polyneuropathy Deborah Quiroga APRN [address] [place] [address] [facility] [address] [place] [phone] Referral ID Status Reason Start Date Expiration Date V isits Requested Visits Authorized [id number] Closed Consult, Test & Treat 10/29/2022 10/29/2023 1 1 Encounter Details Date Type Department Care Team (Latest Contact Info) Description 10/29/2022 Transcribe Orders eDH Incoming Referrals [phone] Deborah Quiroga APRN [address] [place] [address] Polyneuropathy (Primary Dx) Social History [...] 4:15 PM EDT Office Visit Dermatology at [place] [address] [place] [address] Marek Bonilla MD [address], [place] [address] Scheduled Referrals Name Type Priority Associated Diagnoses Orde r Schedule Referral to Neurology Outpatient Referral Routine Polyneuropathy Ordered: 10/29/2022 documented as of this encounter Visit Diagnoses Diagnosis Polyneuropathy- Primary Unspecified hereditary and idiopathic peripheral neuropathy documented in this encounter Care Teams Speech Clinician Relationship Specialty Start Date End Date Deborah Quiroga APRN PCP - General Family Medicine 03/24/16 02/04/23 documented as of this encounter
--- OUTSIDE RECORDS SUMMARY | 2024-03-28 14:30 | XMS_ITS | Encounter Summary ---
[place] [address] Care Team Providers Care Commercial Internship Name Role Phone Ashley Quirogan Cornelius ANURAG Primary Care Provider [phone] Reason for Visit * Reason Onset Date Comments Medical Care Coordination 07/27/2017 Encounter Details Date Type Department Care Team (Late st Contact Info) Description 07/27/2017 Telephone Hematology [place] [address] Alexandrea [place]wood RN Medical Care Coordination Social [...] 07/27/2017 12:25 PM EST Message received from clerk secretary: Injection/Infusion Referral Call placed to [facility] @ [phone] Spoke w/ [employer] Services to be provided for pt are: CBC/CMP DONE Q6 MONTHS X2 STARTING NOVEMBER 2017 TECH confirmed they would provide services to pt - I CALLED PT, LM. Pt orders faxed to [phone] documented in this encounter Plan of Treatment Upcoming Encounters Date Type Department Care Team (Late st Contact Info) Description 03/01/2025 4:15 PM EDT Office Visit Dermatology at [place] [address] [place] [address] Marek Bonilla MD [address] [place] [address] documented as of this encounter Visit Diagnoses Not on filedocumented in this encounter Care Teams Commercial Internship Relationship Specialty Start Date End Date Deborah Quiroga APRN PCP - General Family Medicine 03/24/16 02/04/23 documented as of this encounter
--- OUTSIDE RECORDS SUMMARY | 2024-03-28 14:30 | XMS_ITS | Encounter Summary ---
[place] [address] Care Team Providers Care Battery Container Inspector Name Role Phone Ashley Quirogazac Shields APRN Primary Care Provider [phone] Reason for Visit * Reason Comments Annual Exam Encounter Details Date Type Department Care Team (Late st Contact Info) Description 01/09/2022 3:15 PM EDT Office Visit Dermatology at [address] [address] Marek Bonilla MD [address] [facility], [address] DERMATOLOGY [place], [place] [phone] Rosacea Social History Tobacco Use Types Packs/Day [...] cutaneous and ocular 2. Previously told by head charger that she had corneal tears from her [...] refills. We will call this into her [facility] in [place] 3. Continue metronidazole 0.75% gel applying every other day after washing as needed. We will give her 45 g with 5 refills. 4. Return to clinic in a year for repeat check CC: Deborah Quiroga APRN documented in this encounter Plan of Treatment Upcoming Encounters Date Type Department Care Team (Late st Contact Info) Description 03/01/2025 4:15 PM EDT Office Visit Dermatology at [place] [address] [facility] [place] [address] Marek Bonilla MD [address] [facility], [place] [address] documented as of this encounter Visit Diagnoses Diagnosis Rosacea documented in this encounter Care Teams Battery Container Inspector Relationship Specialty Start Date End Date Deborah Quiroga APRN PCP - General Family Medicine 03/24/16 02/04/23 documented as of this encounter
--- OUTSIDE RECORDS SUMMARY | 2024-03-28 14:30 | XMS_ITS | Encounter Summary ---
Author Organization [facility] [place] [address] Care Team Providers Care Clinical Manager Home Care Name Role Phone Deborah Quiroga APRN Primary Care Provider [phone]- [phone] Encounter Details Date Type Department Care Team (Late st Contact Info) Description 06/08/2022 Ancillary Procedure [place] [address] Deborah Quiroga, WELL TESTING OPERATOR [address] [address] Social History Tobacco Use Types Packs/Day Years [...] 4:15 PM EDT Office Visit Dermatology at [place] [address] [facility] [place] [address] Marek Bonilla MD [address] [facility], [place] [address] documented as of this encounter Procedures Procedure [...] FILM LIBRARY OR DERABLES Performing Organization Address City/State/[facility] Co de Phone Number [place], [place] documented in this encounter Visit Diagnoses Not on filedocumented in this encounter Care Teams Clinical Manager Home Care Relationship Specialty Start Date End Date Deborah Quiroga APRN PCP - General Family Medicine 03/24/16 02/04/23 documented as of this encounter
--- OUTSIDE RECORDS SUMMARY | 2024-03-28 14:30 | XMS_ITS | Encounter Summary ---
Author Organization [facility] [place] [address] Care Team Providers Care Loader Magazine Grinder Name Role Phone Ashley Quirogan Sylvia ANURAG Primary Care Provider [phone] Encounter Details Date Type Department Care Team (Late st Contact Info) Description 12/04/2016 External Results Hematology [place] [address] Teresa Dodson, RN Social History Tobacco Use [...] 4:15 PM EDT Office Visit Dermatology at [place] [address] [facility] [place] [address] Marek Bonilla MD [address] [place] [address] documented as of this encounter Procedures Procedure Name Priority Date/Time Associated Diagnosis Comments CBC (WITH DIFF) Routine 12/03/2016 11:35 AM EDT COMPREHENSIVE METABOLIC PANEL Routine 12/03/2016 11:35 AM EDT documented in this encounter Results * (ABNORMAL) Comprehensive metabolic panel (non-fasting) (12/03/2016 11:35 AM EDT) Glucose 85([facility]) Blood Urea Nitrogen 11([facility]) Creatinine 0.93(Exte rnal Lab) Sodium 140(Exter nal Lab) Potassium 4.2(Exter nal Lab) Chloride 104(Exter nal Lab) Calcium 10.0(Exte rnal Lab) Protein, Total 8.1(Exter nal Lab) Albumin 3.5(Exter nal Lab) Bilirubin, Total 0.25(Exte rnal Lab) Alkaline Phosphatase 96([facility]) Aspartate Aminotransferase 18([facility]) Alanine Aminotransferase 21([facility]) Blood specimen (specimen) 12/03/2016 11:35 AM EDT Historical Provider CHEMISTRY ORDERAB LES * (ABNORMAL) CBC (with Diff) (12/03/2016 11:35 AM EDT) White Blood Cell 1.61(EXTER NAL/ABN) 4.4 - 10.8 Hemoglobin 13.0(Exter nal Lab) Hematocrit 39.8(Exter nal Lab) Platelet 248([facility]) ANC 0.5([facility]PER[facility]REAR[facility] AL/ABN) Blood specimen (specimen) 12/03/2016 11:35 AM EDT Historical Provider HEMATOLOGY ORDERA BLES documented in this encounter Visit Diagnoses Not on filedocumented in this encounter Care Teams Loader Magazine Grinder Relationship Specialty Start Date End Date Deborah Quiroga APRN PCP - General Family Medicine 03/24/16 02/04/23 documented as of this encounter
--- OUTSIDE RECORDS SUMMARY | 2024-03-28 14:30 | XMS_ITS | Encounter Summary ---
[place] [address] Care Team Providers Care Oracle Ebs Developer Name Role Phone Deborah Quiroga APRN Primary Care Provider [phone]- [phone] Encounter Details Date Type Department Care Team (Late st Contact Info) Description 11/11/2020 Refill Dermatology at [address] [phone] Taylor Malone, ORNAMENTAL PAINTER Social History Tobacco Use Types Packs/Day Years [...] PM EDT Office Visit Dermatology at [address] [phone] Marek Bonilla MD 580 [facility], [place] [address] documented as of this encounter Visit Diagnoses Not on filedocumented in this encounter Care Teams Oracle Ebs Developer Relationship Specialty Start Date End Date Deborah Quiroga APRN PCP - General Family Medicine 03/24/16 02/04/23 documented as of this encounter
--- OUTSIDE RECORDS SUMMARY | 2024-03-28 14:30 | XMS_ITS | Encounter Summary ---
[place] [address] Care Team Providers Care Color Adviser Name Role Phone Deborah Quiroga APRN Primary Care Provider Encounter Details Date Type Department Care Team (Late st Contact Info) Description 06/17/2022 Ancillary Procedure [place] [phone] Deborah Quiroga, LABOR UTILIZATION SUPERINTENDENT [address] [address] Social History Tobacco Use Types Packs/Day Years [...] 4:15 PM EDT Office Visit Dermatology at [place] 580 [facility] [place] [phone] Marek Bonilla MD 580 [facility], [place] [address] documented as of this encounter Procedures Procedure [...] FILM LIBRARY OR DERABLES Performing Organization Address City/State/[facility] Co de Phone Number [place], [place] documented in this encounter Visit Diagnoses Not on filedocumented in this encounter Care Teams Color Adviser Relationship Specialty Start Date End Date Deborah Quiroga APRN PCP - General Family Medicine 03/24/16 02/04/23 documented as of this encounter
--- OUTSIDE RECORDS SUMMARY | 2024-03-28 14:30 | XMS_ITS | Encounter Summary ---
[place] [address] Care Team Providers Care Row Boss Name Role Phone Deborah Quiroga APRN Primary Care Provider [phone]- [phone] Encounter Details Date Type Department Care Team (Late st Contact Info) Description 01/09/2022 Refill Dermatology at [address] [phone] Lupe Connor RN Social History Tobacco Use [...] PM EDT Office Visit Dermatology at [address] [phone] Marek Bonilla MD 580 [facility], [place] [address] documented as of this encounter Visit Diagnoses Not on filedocumented in this encounter Care Teams Row Boss Relationship Specialty Start Date End Date Deborah Quiroga APRN PCP - General Family Medicine 03/24/16 02/04/23 documented as of this encounter
--- OUTSIDE RECORDS SUMMARY | 2024-03-28 14:30 | XMS_ITS | Encounter Summary ---
[place] [address] Care Team Providers Care County Ordinary Name Role Phone Junaid Deborah Shields APRN Primary Care Provider [phone] Reason for Visit * Reason Comments Follow-up Encounter Details Date Type Department Care Team (Late st Contact Info) Description 01/10/2021 4:30 PM EDT Office Visit Dermatology at [place] 580 [facility] [place] [phone] Marek Bonilla MD 580 [facility], TODD A DERMATOLOGY [place], [place] [id number] Rosacea Social History Tobacco Use Types Packs/Day [...] cutaneous and ocular 2. Previously told by stab setter and driller that she had corneal tears from her [...] 3 refills. Will call this in her [facility] in [place] 3. Continue metronidazole 0.75% gel applying once [...] PM EDT Office Visit Dermatology at [address] [phone] Marek Bonilla MD 580 [facility], [place] [address] documented as of this encounter Visit Diagnoses Diagnosis Rosacea documented in this encounter Care Teams County Ordinary Relationship Specialty Start Date End Date Deborah Quiroga APRN PCP - General Family Medicine 03/24/16 02/04/23 documented as of this encounter
--- OUTSIDE RECORDS SUMMARY | 2024-03-28 14:30 | XMS_ITS | Encounter Summary ---
[place] [address] Care Team Providers Care Seismic Interpreter Name Role Phone Deborah Quiroga APRN Primary Care Provider [phone]- [phone] Encounter Details Date Type Department Care Team (Late st Contact Info) Description 06/05/2021 Interpretation Only [address] [phone] Deborah Quiroga MACHINIST SUPERVISOR [address] [address] Social History Tobacco Use Types Packs/Day Years [...] PM EDT Office Visit Dermatology at [place] 580 [facility] [place] [address] Marek Bonilla MD 580 [facility], [place] [address] documented as of this encounter Procedures Procedure Name Priority Date/Time Associated Diagnosis Comments DXA CENTRAL SPINE, HIP, AND/OR WHOLE BODY (GENERIC) Routine 06/05/2021 11:58 AM EDT documented in this encounter Results * DXA Central Spine, Hip, and/or Whole Body (Generic) (06/05/2021 11:58 AM EDT) PT CLASS O RAD ADMITDTTM RAD PT RAD INFO [id number]^E VERETT^DEBORAH ^E RAD EXAM DESC XDXAC^DEXA SCAN AXIAL^RIS [facility] Anatomical Region Laterality Modality C-spine, Hip N/A [...] who have questions please contact the health life care planner that requested your imaging first. ? Electronically signed by: Rocael Villatoro MD, [facility] ([phone]), at 06/05/2021 12:00 PM Narrative 06/05/2021 12:00 [...] patients who have questions please contactthe health life care planner that requested your imaging first. Deborah Quiroga APRN IMGerman DEXA ORDERABLES documented in this encounter Visit Diagnoses Not on filedocumented in this encounter Care Teams Seismic Interpreter Relationship Specialty Start Date End Date Deborah Quiroga APRN PCP - General Family Medicine 03/24/16 02/04/23 documented as of this encounter
--- OUTSIDE RECORDS SUMMARY | 2024-03-28 14:30 | XMS_ITS | Encounter Summary ---
Author Organization [facility] Address [facility] [place] [address] Care Team Providers Care Shuttle Final Inspector Name Role Phone Junaid Deborah Shields APRN Primary Care Provider [phone] Reason for Visit * Reason Comments Schedule Office Case Pain right leg Encounter Details Date Type Department Care Team (Late st Contact Info) Description 12/11/2016 9:00 AM EDT Office Visit Hematology [place] [address] Markel Borjas MD [facility] [address] [place] [address] Neutropenia, unspecified type Social History Tobacco Use [...] AM EDT Hematology Outpatient Clinic [facility] [...] TOUCH PREP, CLOT SECTION, CORE ??BIOPSY); [OSR# [id number], COLLECTED 06/23/2016, 19 SLIDES]: ?1. 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 Extremities: No edema. Labs: Hgb= 13 Jtvx=451 ANC= 0.5 Imaging As above - reviewed [...] EDT Office Visit Dermatology at [place] 580 [place] [phone] Marek Bonilla MD [address] [facility], [place] [address] documented as of this encounter Results * (ABNORMAL) CBC (with Diff) (06/11/2017 1:19 PM EST) Pathologist [facility] White Blood Cell 2.28(EXTER NAL/ABN) 4.4 - [...] type documented in this encounter Care Teams Shuttle Final Inspector Relationship Specialty Start Date End Date Deborah Quiroga, TIRE SORTER PCP - General Family Medicine 03/24/16 02/04/23 documented as of this encounter
--- OUTSIDE RECORDS SUMMARY | 2024-03-28 14:30 | XMS_ITS | Encounter Summary ---
[place] [address] Care Team Providers Care Rn Renal Name Role Phone Deborah Quiroga APRN Primary Care Provider [phone]- [phone] Encounter Details Date Type Department Care Team (Late st Contact Info) Description 01/13/2021 Refill Dermatology at [address] [phone] Taylor Malone, RETAIL SERVICE SPECIALIST Social History Tobacco Use Types Packs/Day [...] PM EDT Office Visit Dermatology at [address] [phone] Marek Bonilla MD 580 [facility], [place] [address] documented as of this encounter Visit Diagnoses Not on filedocumented in this encounter Care Teams Rn Renal Relationship Specialty Start Date End Date Deborah Quiroga APRN PCP - General Family Medicine 03/24/16 02/04/23 documented as of this encounter
--- OUTSIDE RECORDS SUMMARY | 2024-03-28 14:30 | XMS_ITS | Encounter Summary ---
[place] [address] Care Team Providers Care Supervisor Framing Mill Name Role Phone Junaid, Deborah Shields APRN Primary Care Provider [phone] Encounter Details Date Type Department Care Team (Late st Contact Info) Description 10/20/2016 11:20 AM EDT Office [place] [phone] Alirio Esparza MD S/P AVR Social History [...] of her postoperative tests done at [facility]. Her echo shows a well-seated valve. Her EF, for some reason, was read as in the 45% to 50% range. She had a normal EF to start. I think that will need to be repeated at [facility]. She has no perivalve leak. Her [...] should continue to see Dr. Burrell, her gleason operator at [facility]. cc: Dr. Burrell documented in this encounter Plan of Treatment Upcoming Encounters Date Type Department Care Team (Late st Contact Info) Description 03/01/2025 4:15 PM EDT Office Visit Dermatology at [place] 580 [facility] [place] [phone] Marek Bonilla MD 580 [facility], [place] [address] documented as of this encounter Visit Diagnoses Diagnosis S/P AVR Heart valve replaced by other means documented in this encounter Care Teams Supervisor Framing Mill Relationship Specialty Start Date End Date Deborah Quiroga APRN PCP - General Family Medicine 03/24/16 02/04/23 documented as of this encounter
--- OUTSIDE RECORDS SUMMARY | 2024-03-28 14:30 | XMS_ITS | Encounter Summary ---
Author Organization [facility] Address [facility] [place] [address] Care Team Providers Care Apprentice Electrician Name Role Phone Deborah Quiroga APRN Primary Care Provider [phone] Encounter Details Date Type Department Care Team (Latest Contact Info) Description 07/03/2022 1:36 PM EST - 07/03/2022 11:59 PM EST Hospital Encounter Hematology [place] [address] Discharge Disposition: Home Social History Tobacco Use [...] EDT Office Visit Dermatology at [place] 580 [place] [address] Marek Bonilla MD 580 [facility], [place] [address] documented as of this encounter Procedures Procedure Name Priority Date/Time Associated Diagnosis Comments FOLATE, SERUM Routine 07/03/2022 1:59 PM EST VITAMIN B12 Routine 07/03/2022 1:59 PM EST documented in this encounter Results * Folate, serum (07/03/2022 1:59 PM EST) Folate >20.0 4.8 - 24.2 ng/mL [facility] Blood Venous Draw / Unknown 07/03/2022 1:59 PM EST 07/03/2022 2:13 PM EST Narrative Resulting Agency Comment Spec In Lab Markel Borjas MD CHEMISTRY ORDERABL ES Performing Organization Address City/[facility]/ZIP Co de Phone Number [facility] [place] [address] * Vitamin B12 (07/03/2022 1:59 PM EST) Vitamin B12 449 232 - 1,245 pg/mL [facility] Blood Venous Draw / Unknown 07/03/2022 1:59 PM EST 07/03/2022 2:13 PM EST Narrative Resulting Agency Comment Spec In Lab Markel Borjas MD CHEMISTRY ORDERABL ES Performing Organization Address [facility] [place] [address] documented in this encounter Visit Diagnoses Not on filedocumented in this encounter Care Teams Apprentice Electrician Relationship Specialty Start Date End Date Deborah Quiroga APRN PCP - General Family Medicine 03/24/16 02/04/23 documented as of this encounter
--- OUTSIDE RECORDS SUMMARY | 2024-03-28 14:30 | XMS_ITS | Encounter Summary ---
[place] [address] Care Team Providers Care Yacht Builder Name Role Phone Deborah Quiroga APRN Primary Care Provider [phone] Reason for Referral * Consultation (Routine) - Closed Specialty Diagnoses / Procedures Referred By Contac t Referred To Contact Rheumatology Diagnoses Positive FRANCISCO (antinuclear antibody) Arthralgia, unspecified joint Sandy Wu APRN [address] [place] [address] [facility] Rheumatology [address] [place] [phone] Referral ID Status Reason Start Date Expiration Date V isits Requested Visits Authorized [id number] Closed Consult, Test & Treat PCP Updated and/or Approved 01/01/2022 01/01/2023 6 6 Encounter Details Date Type Department Care Team (Latest Contact Info) Description 01/01/2022 Transcribe Orders eDH Incoming Referrals [phone] Sandy Wu APRN [address] [place], [place] [id number] Positive FRANCISCO (antinuclear antibody); Arthralgia, unspecified joint [...] 4:15 PM EDT Office Visit Dermatology at [place] 580 [facility] [place] [address] Marek Bonilla MD [address] [facility] [address], [place] [address] Scheduled Referrals Name Type Priority Associated Diagnoses Orde r Schedule Referral to Rheumatology Outpatient Referral Routine Positive FRANCISCO (antinuclear antibody) Arthralgia, unspecified joint Ordered: 01/01/2022 documented as of this encounter Visit Diagnoses Diagnosis Positive FRANCISCO (antinuclear antibody) Other and unspecified nonspecific immunological findings Arthralgia, unspecified joint documented in this encounter Care Teams Yacht Builder Relationship Specialty Start Date End Date Deborah Quiroga APRN PCP - General Family Medicine 03/24/16 02/04/23 documented as of this encounter
--- OUTSIDE RECORDS SUMMARY | 2024-03-28 14:30 | XMS_ITS | Encounter Summary ---
Author Organization [facility] Address [facility] [place] [address] Care Team Providers Care Pen Or Pencil Assembly Machine Operator Name Role Phone Deborah Quiroga ANURAG Primary Care Provider [phone] Encounter Details Date Type Department Care Team (Late Contact Info) Description 02/07/2020 Telephone Hematology [place] [phone] Ellen Rios RN Social History Tobacco Use [...] 02/07/2020 12:59 PM EDT Message received from quality technician fiberglass: Injection/Infusion Referral Services to be provided for pt are: CBC only at [facility]- Pt will go by 02/27 Orders faxed to [phone]). Spoke with pt. She will call [facility] directly to schedule a time that works for her. documented in this encounter Plan of Treatment Upcoming Encounters Date Type Department Care Team (Late Contact Info) Description 03/01/2025 4:15 PM EDT Office Visit Dermatology at [address] [phone] Marek Bonilla MD [address] [facility] [address], [place] [address] documented as of this encounter Visit Diagnoses Not on filedocumented in this encounter Care Teams Pen Or Pencil Assembly Machine Operator Relationship Specialty Start Date End Date Deborah Quiroga APRN PCP - General Family Medicine 03/24/16 02/04/23 documented as of this encounter
--- OUTSIDE RECORDS SUMMARY | 2024-03-28 14:30 | XMS_ITS | Encounter Summary ---
[place] [address] Care Team Providers Care Beauty Shop Manager Name Role Phone Ashley Quirogan Cornelius ANURAG Primary Care Provider [phone] Reason for Visit * Reason Comments Acrochordon Rosacea Encounter Details Date Type Department Care Team (Late st Contact Info) Description 12/05/2020 3:00 PM EDT Office Visit Dermatology at [address] [phone] Marek Bonilla MD 580 [facility], [place] [address] Inflamed acrochordon Social History Tobacco Use Types [...] 4:15 PM EDT Office Visit Dermatology at [place] 580 [place] [address] Marek Bonilla MD 580 [facility], [facility] [address] documented as of this encounter Visit Diagnoses Diagnosis Inflamed acrochordon Unspecified hypertrophic and atrophic condition of skin documented in this encounter Care Teams Beauty Shop Manager Relationship Specialty Start Date End Date Deborah Quiroga APRN PCP - General Family Medicine 03/24/16 02/04/23 documented as of this encounter
--- OUTSIDE RECORDS SUMMARY | 2024-03-28 14:30 | XMS_ITS | Encounter Summary ---
[place] [address] Care Team Providers Care Office Machine Repair Shop Supervisor Name Role Phone Deborah Quiroga APRN Primary Care Provider [phone] Encounter Details Date Type Department Care Team (Late st Contact Info) Description 03/04/2020 External Results Hematology [place] [address] Theroux, Bhumi Cornelius Social History Tobacco Use [...] PM EDT Office Visit Dermatology at [place] 580 [facility] [place] [phone] Marek Bonilla MD [address] [facility] [address], [place] [address] documented as of this encounter Procedures Procedure [...] Provider CHEMISTRY ORDERAB LES Performing Organization Address City/[facility]/ZIP Co de Phone Number EXTERNAL LAB [...] Provider CHEMISTRY ORDERAB LES Performing Organization Address City/[facility]/ZIP Co de Phone Number EXTERNAL LAB [...] filedocumented in this encounter Care Teams Office Machine Repair Shop Supervisor Relationship Specialty Start Date End Date Deborah Quiroga, FUN HOUSE ATTENDANT PCP - General Family Medicine 03/24/16 02/04/23 documented as of this encounter
--- OUTSIDE RECORDS SUMMARY | 2024-03-28 14:30 | XMS_ITS | Encounter Summary ---
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 [address] [place] [address] Consuelo Sommer APRN [facility] [address] [place] [address] Chronic idiopathic neutropenia; Dysuria Social History Tobacco [...] 07/03/2022 1:30 PM EST Hematology Outpatient Clinic [facility] Hematology Outpatient Consult Note CC: [id number] [...] TOUCH PREP, CLOT SECTION, CORE ??BIOPSY); [OSR# [id number], COLLECTED 06/23/2016, 19 SLIDES]: ?1. ??Normocellular marrow [...] a clonal lymphoproliferative or myeloproliferative disorder (OSR# [id number]) Chromosome analysis on the marrow aspirate revealed [...] - neg ETOH - neg Works at [employer] in [place] Plays competitive scrabble, and goes to [employer] Family History: No known primary marrow disorders [...] intact. Extremities: No edema. Labs: Hgb= 11.7 Ulkk=405 ANC= 2.5 Imaging As above - reviewed [...] 4:15 PM EDT Office Visit Dermatology at [place] [address] [place] [id number] Marek Bonilla MD [address] [facility], [place] [address] documented as of this encounter Procedures Procedure [...] tract infection, submit a new specimen. (A) [facility] Clean Catch Urine 07/03/2022 2:00 PM EST 07/03/2022 5:55 PM EST Narrative Resulting Agency Comment Spec In Lab Markel Borjas MD MICROBIOLOGY - GEN ERAL ORDERABLES Performing Organization Address [facility] de Phone Number [facility] [place] [place] [address] * (ABNORMAL) Urinalysis Microscopic Exam (07/03/2022 2:00 PM EST) RBC, Urine 2 0 - 4 /HPF [facility] WBC, Urine 14(H) 0 - 5 /HPF [facility] Bacteria, Urine Occasional (A) None /HPF [facility] Squamous Epithelial Cells Raw Data, Urine 12(H) <=4 /HPF [facility] Hyaline Casts, Urine 2 0 - 2 /LPF [facility] Clean Catch Urine 07/03/2022 2:00 PM EST 07/03/2022 2:29 PM EST Narrative Resulting Agency Comment Spec In Lab Markel Borjas MD URINE ORDERABLES Performing Organization Address [facility] de Phone Number [facility] [place] [address] * (ABNORMAL) Urinalysis with reflex Culture (07/03/2022 2:00 PM EST) Glucose, Urine Dipstick Negative Negative mg/dL [facility] Protein, Urine Dipstick 30(A) Negative mg/dL [facility] Bilirubin, Urine Dipstick Negative Negative mg/dL [facility] Comment: Clinical correlation required for positive Urine Bilirubin results as false positive may occur with some drugs and drug related products. If a false positive is suspected a serum total bilirubin should be considered if clinically indicated. Urobilinogen, Urine Dipstick Normal Normal mg/dL [facility] pH, Urn (dipstick) 5.5 5.0 - 8.0 [facility] Blood, Urine Dipstick Negative Negative mg/dL [facility] Ketone, Urine Dipstick Trace(A) Negative mg/dL [facility] Nitrite, Urine Dipstick Negative Negative [facility] Leukocytes, Urine Dipstick Small(A) Negative [facility] Appearance, Urine Dipstick Clear Clear [facility] Specific [place] Urine Automated 1.022 1.005 - 1.030 [facility] Color, Urine Dipstick Yellow Yellow [facility] Reflex to Culture Yes [facility] Clean Catch Urine 07/03/2022 2:00 PM EST 07/03/2022 2:29 PM EST Narrative Resulting Agency Comment Spec In Lab Markel Borjas MD URINE ORDERABLES [facility] [place] [address] * (ABNORMAL) Comprehensive metabolic panel (non-fasting) (07/03/2022 12:40 PM EST) Glucose 92 65 - 199 mg/dL [facility] Comment:Diabetes: >=200 mg/d L plus symptoms Blood Urea Nitrogen 22(H) 8 - 18 mg/dL [facility] Creatinine 0.80 0.70 - 1.20 mg/dL [facility] Sodium 139 135 - 145 mmol/L [facility] Potassium 4.2 3.5 - 5.0 mmol/L [facility] Comment: Please note: ??Patients with WBC >100,000 may have falsely elevated Potassium levels. ??For accurate Potassium quantification in these patients send serum separator tube (gold top) for subsequent determinations. ??Contact the Clinical Chemistry Laboratory if there are any questions. Chloride 105 98 - 107 mmol/L [facility] Carbon Dioxide 23 22 - 31 mmol/L [facility] Anion Gap 11 5 - 15 mmol/L [facility] Calcium 10.1 8.5 - 10.5 mg/dL [facility] Protein, Total 7.6 6.1 - 8.0 g/dL [facility] Albumin 4.1 3.2 - 5.2 g/dL [facility] Aspartate Aminotransferase 25 0 - 30 unit/L [facility] Alanine Aminotransferase 14 0 - 30 unit/L [facility] Alkaline Phosphatase 80 35 - 105 unit/L [facility] Bilirubin, Total 0.3 0.2 - 1.3 mg/dL [facility] Est Glomerular Filtration Rate 81 >=60 mL/min/1. 73 m?? 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
--- OUTSIDE RECORDS SUMMARY | 2024-03-28 14:31 | XMS_ITS | Encounter Summary ---
[place] [address] Care Team Providers Care Feller Hand Name Role Phone Ashley Quirogazac Shields APRN Primary Care Provider [phone] Reason for Visit * Auth/Cert Specialty Diagnoses / Procedures Referred By Crispin t Referred To Contact Diagnoses Aortic stenosis Procedures PRO REPLACE AORT VALV, PROSTH VALV @REPLACE AORTIC VALVE, OPEN, W\CPB, W\PROSTHETIC VALVE (WRVU 41.32) Referral ID Status Reason Start Date Expiration Date Visits Re quested Visits Authorized [id number] 1 1 Encounter Details Date Type Department Care Team (Late st Contact Info) Description 09/21/2016 7:30 AM EST - 09/21/2016 12:04 PM EST Surgery [place] [address] Alirio Esparza MD @REPLACE AORTIC VALVE, OPEN, [...] Patient Age: 61 y.o. Birthdate: 1955 Language: Djiboutian Race: White Ethnicity: Not nor Admit Date: 09/21/2016 Discharge Date: 09/25/2016 Attending Physician: Alirio Esparza MD Follow-up Recommendations for Providers: Please continue routine management of cardiovascular risk factors including blood pressure, lipids,glucose, etc. Please note any changes to medications. Patient to follow-up with PCP, Deborah Quiroga APRN, in 1-2 weeks. Patient to follow-up with Assistant Football Coach, Dr. Antelmo Burrell, in two weeks. Patient to follow-up with Cardiac Surgery, Dr. Alirio Esparza, to be scheduled for before 10/19/2016, with CXR, EKG, and Echo. Inpatient Provider Contact Information: [facility] Section of Cardiac Surgery [facility] [place] [address] FAX [phone] Discharge Diagnoses (Hospital Problems) Primary Diagnoses: Secondary [...] 41.32) performed by Alirio Esparza MD at [facility] MAIN OR ??? Pro aortoplas for supravalv sten N/A 09/21/2016 @AORTOPLASTY FOR SUPRAVALVULAR STENOSIS (WRVU 29.33) performed by Alirio Esparza MD at [facility] MAIN OR Prior To Admission [...] Hospital Course: Purnima Thacker was admitted to [facility] on 09/21/2016 via the Same Day Program. [...] Alirio Esparza and/or the Cardiac Surgery Physician Sales Hunter Team may be reached at . Antibiotic [...] until after your return appointment with Dr. Aliroi Jones. You may use a Reubens Track or treadmill but avoid any pulling [...] friends, go to a movie, go to hinduism, etc. Heavy activities: No hunting, skiing, jogging, [...] the outpatient Phase 2 Cardiac Rehabilitation at [facility]. The patient agrees to a referral to this program. The referral will be sent at discharge and the patient should be contacted by the program within 1- 2 weeks from discharge. Future Appointments and Orders Future Appointments Provider Department Dept Phone 11/20/2016 11:30 AM Markel Borjas MD [facility] [phone] Future Orders Complete By Expires Echocardiogram Transthoracic([facility]) [WHO668 Custom] 10/18/2016 (Approximate) 09/18/2017 Process Instructions: If the Echocardiogram is to be PERFORMED in a DH location other than [place]--STOP and order [id number], Echocardiogram South/External. Scheduling Instructions: Questions: Is a Bubble Study requested?: No Does the patient have Congenital Heart Disease?: No Does patient require sedation?: None GA rationale: Should this service be billed to the research sponsor?: EKG 12 Lead [EKG1 Custom] 10/18/2016 (Approximate) 09/25/2017 Process Instructions: Scheduling Instructions: Questions: Which DH location will this be performed?: [place] Is a rhythm strip needed?: No If EKG Reason is Pre-op Evaluation, indicate diagnosis for surgery.: Should this service be billed to the research sponsor?: XR Chest PA & Lateral (Generic) [[id number] Custom] 10/18/2016 (Approximate) 09/25/2017 Process Instructions: Scheduling Instructions: Questions: Where will study be performed?: [facility]- Radiology Portable exam?: No Reason for exam and clinical history: s/p AVReplacement, patch annuloplasty 1 month f/u Other pertinent information: Stat read required?: Date of injury if applicable: Requested Time: Referral to Cardiac Rehab [ALT356 Custom] As directed Process Instructions: If no progress note charted, please enter Clinical details in comments. Scheduling Instructions: Questions: My question or request is: s/p AVR. Cardiac rehab at [facility] Referral to Home Health - at DISCHARGE [CRT1609 CPT(R)] As directed Process Instructions: Scheduling Instructions: Comments: DOCUMENTATION FOR VNA SERVICES (INCLUDING THOSE PATIENTS WITH MEDICARE COVERAGE REQUIRING HOME VNA SERVICES AND/OR HOSPICE SERVICES) PATIENT'S LOCATION: Purnimakary Gallego[address] [address] (home) No relevant phone numbers on file. Brokerage Coordinator's Name: self In discussion with the attending physician, it is certified that this patient is under their care and that they, or a Nurse Practitioner, or Physician Sales Hunter who is working directly with them, hada [...] for services as follows: HOME HEALTH AGENCY: [facility] PHONE: [phone] FAX: [phone] RN orders: Cardiopulmonary assessment, incisional assessment, assess [...] issues please call the Cardiac SurgeryOffice at [phone] FOR MEDICARE ONLY: In discussion with the [...] Questions: Agency name and contact information: [facility] Patient location post discharge: home What services are requested: Registered Nurse Physical Therapy Occupational Therapy Start date: Responsible MD post discharge contact info: Arrangements for VNA/home care: As above. VN RN OR PCP TO PLEASE REMOVE CHEST TUBE SUTURES ON OR AFTER 09/30/16 Signed: Crispin Aranda PA-C 09/25/2016 [facility] Section of Cardiac Surgery [facility] [place] [address] FAX [phone] Date: 09/25/2016 CC: ANURAG Alford Caryn E, APRN [address] [place] [address] documented in this encounter Discharge Instructions * [...] Alirio Esparza and/or the Cardiac Surgery Physician Sales Hunter Team may be reached at . Antibiotic [...] Dr. Alirio Jones. You may use a Reubens Track or treadmill but avoid any pulling [...] friends, go to a movie, go to hinduism, etc. Heavy activities: No hunting, skiing, jogging, [...] the outpatient Phase 2 Cardiac Rehabilitation at [facility]. The patient agrees to a [...] PM EST Cardiac Surgery Progress Note: ID: [id number] S/p AVR, patch aortoplasty POD#2. PMH of [...] Gas) No results found for: PHART, PO2ART, MZD4KES Assessment/Plan: TPW out this am. (+) BM. [...] Signed: Crispin Aranda PA-C 09/24/2016 Team pager: [phone]; [phone] after 5pm [facility] Section of Cardiac Surgery * Leonor Henson S, ACOUSTICAL CARPENTER - 09/23/2016 10:48 AM EST Cardiac Surgery Progress Note: ID: [id number] s/p AVR, patch aortoplasty POD#2. PMH of [...] Gas) No results found for: PHART, PO2ART, DME5KRD Assessment/Plan: s/p AVR, patch aortoplasty POD#2. PMH of Neutropenia, HLD, HTN, Depression, obesity, . Transferred from [facility] yesterday and doing well. Pathway. [...] Surgeon on rounds. Signed: Leonor Henson APRN [facility] Section of Cardiac Surgery Date: 09/23/2016 * Nico Palacios PA - 09/22/2016 9:56 AM EST Cardiac Surgery Progress Note: ID: [id number] s/p AVR, patch aortoplasty POD#1. PMH of [...] NT, ND, soft. Ext: Moves all extremities. [place], well perfused. Incisions: C/D/I Tubes/Lines/Drains: PIV, richi, [...] Attending Surgeon on rounds. Signed: EKATERINA KIM [facility] Section of Cardiac Surgery Date: 09/22/2016 * [...] left pleural effusion. T/L/D Al ETT CVL [place] Pacing wires ASSESSMENT, MANAGEMENT, and DECISION [...] Outcome (s) achieved Date Met: 09/25/16 09/25/16 0599 Coping/Psychosocial Plan Of Care Reviewed With patient [...] health, home with outpatient services Lalitha Cohen [facility] Pager: [phone] Inpatient Physical Therapy Patient status, treatment interventions, and goals discussed with student. I am in agreement with all details and associated flowsheet rows as documented and was present for all aspects of the patient treatment session. Nery Jaramillo, CANDY Pager [phone] Problem: Acute Rehab Services Goal & Intervention Plan Goal: Bed Mobility Goal Stand Alone Therapy Goal Outcome: Ongoing (Interventions Implemented as Appropriate) 09/22/16 1611 09/25/16 0947 Bed Mobility Goal Bed Mobility Goal, Time to Achieve 4 days -- Bed Mobility Goal, Activity Type scoot/bridge;supine to sit/sit to supine -- Bed Mobility Goal, [place] Level independent -- Bed Mobility Goal, Additional [...] Achieve 4 days -- Gait Training Goal, [place] Level independent -- Gait Training Goal, Distance [...] assist, home with home health [facility] Pager: [phone] Inpatient Physical Therapy Patient status, treatment interventions, and goals discussed with student. I am in agreement with all details and associated flowsheet rows as documented and was present for all aspects of the patient treatment session. Nery Jaramillo, PACKAGING CLERK Pager [phone] Problem: Acute Rehab Services Goal & Intervention Plan Goal: Bed Mobility Goal Stand Alone Therapy Goal Outcome: Ongoing (Interventions Implemented as Appropriate) 09/22/16161009/23/161411 Bed Mobility Goal Bed Mobility Goal, Time to Achieve 4 days -- Bed Mobility Goal, Activity Type scoot/bridge;supine to sit/sit to supine -- Bed Mobility Goal, Thur[place] Level independent -- Bed Mobility Goal, Additional [...] Achieve 4 days -- Gait Training Goal, [place] Level independent -- Gait Training Goal, Distance [...] days -- Transfer Training Goal, Activity Type jgy-dg-fcqzb/dnqqq-ky-jot;lkd-cb-dreen/yhikj-it-cdo -- Transfer Train Goal, [place] Level independent -- Transfer Training Goal, Additional Goal abides sternal precautions -- Transfer Training Goal, Outcome -- goal met * Consult Note - Jana Crenshaw RN - 09/23/2016 9:41 AM EST [facility] CARDIAC REHABILITATION Purnima Thacker was seen today regarding participation in the outpatient Phase 2 Cardiac Rehabilitation at [facility]. The patient agrees to a [...] Another Service: (cardiac rehab) NICOLE HERNANDEZ, PT Pager:[phone] Inpatient Physical Therapy Problem: Acute Rehab Services Goal & Intervention Plan Goal: Bed Mobility Goal Stand Alone Therapy Goal Outcome: Ongoing (Interventions Implemented as Appropriate) 09/22/161610 Bed Mobility Goal Bed Mobility Goal, Time to Achieve 4 days Bed Mobility Goal, Activity Type scoot/bridge;supine to sit/sit to supine Bed Mobility Goal, [place] Level independent Bed Mobility Goal, Additional Goal able to abide sternal precautions during transfers Goal: Gait Training Goal Stand Alone Therapy Goal Outcome: Ongoing (Interventions Implemented as Appropriate) 09/22/161610 Gait Training Goal Gait Training Goal, Date Established 09/22/16 Gait Training Goal, Time to Achieve 4 days Gait Training Goal, [place] Level independent Gait Training Goal, Distance to Achieve ascend and descends 2 steps independently Goal: Goal Transfer Training Stand Alone Therapy Goal Outcome: Ongoing (Interventions Implemented as Appropriate) 09/22/161610 Goal Transfer Training Transfer Training Goal, Time to Achieve 4 days Transfer Training Goal, Activity Type uzt-ke-acwdj/engfp-pu-xub;jdx-qh-kwbmx/nrfde-pv-enc Transfer Train Goal, Thurston Level independent Transfer Training Goal, Additional Goal [...] of completing AD's at home, chooses her odgpyn-ux-jka, Martha Thacker (home) for her DPOAH, 2nd choice in friend, Nitesh Rad, [place], [place] Current Coping/Education/Information Needs: patient sitting up [...] close by, Rashad & Raymond, and her fshrlg-fc-oqh Martha Thacker who she has chosen to be her DPOAH. Also has a friend Nitesh Leroy who lives in [place], [place], also her DPOAH choice. Behavioral Health History: none on file in e[facility] Substance Use/Abuse: none on file in [facility] Other Pertinent/Service Specific Information: none Health/Prescription Coverage: Primary Insurance: [employer] Secondary Insurance: none Prescription Coverage: yes, per patient no issues Preferred Pharmacy: ?? Other: none Primary Care Provider: Deborah Quiroga, ACOUSTICAL CARPENTER [phone] Patient/Caregiver Goals of Treatment: per medical team recommendations at discharge for CT surgery Potential Needs for Transition of Care: Rehab/SNF: TBD Home Health: TBD DME: no Dialysis: no Community Resources: non3 Transportation: ride home with a friend Other: none Anticipated Barriers to Discharge/Special Considerations: none anticipated at this time Plan: patient will need VNA services at discharge. The patient/front office representative has been provided a list of Home Health Agencies/DME vendors which servetheir preferred geographic area. A letter describing our affiliations was reviewed with them and they were educated about their right to choose where referrals are placed. Patient requests referral to: [facility] [employer]. PHONE: [phone] FAX: [phone] Expected date of discharge: Fri/Sat? CM called VNA to confirm referral, talked with VALDO Bunn/intake who stated she was familiar w/patient & would monitor her progress through curaspan. Referral routed to the Pediatrician/Medical Doctor for matching with agency/vendor and to provide any required information. A member of the Care Management team will continue to monitor progress, follow for continuity of care and assist with transition of care planning. Amanda Moreno RN Pager: [phone] * Op Note - Alirio Esparza MD - 09/21/2016 12:53 PM EST 09/23/2016 Purnima Thacker 1955 [id number] Preoperative Diagnosis: Symptomatic aortic stenosis Postoperative Diagnosis: Symptomatic aortic stenosis Procedure: Aortic valve replacement: Bovine Pericardial 25 mm Surgeon: Alirio Esparza M.D. Sales Hunter: Philip BALL Anesthesia: General endotracheal anesthesia Drains: [...] applied. The patient was transported to the [facility] on levo. All counts were [...] Operative Note Patient Name: Purnima Thacker : [id number] MR#: [id number] Case Date: 09/21/2016 Surgeon: Surgeon(s) and Role: * Alirio Esparza MD - Primary * Nico Palacios PA - Physician Sales Hunter Preoperative diagnosis: Postoperative diagnosis: Procedure(s) (LRB): @REPLACE [...] 4:15 PM EDT Office Visit Dermatology at [place] [address] [place] [address] Marek Bonilla MD [address], [place] [address] Scheduled Orders Name Type Priority Associated Diagnoses [...] IMPLANTABLE DEVICES SCAN 09/26/2016 12:00 AM EST TALKING [employer]OOKS LIBRARY CLERK SCAN 09/26/2016 12:00 AM EST POTASSIUM Routine [...] SCAN EXT O RDR/RSLT * SCAN DOC: TALKING BOOKS LIBRARY CLERK (09/26/2016 12:00 AM EST) Anatomical Region Laterality [...] MD CHEMISTRY ORDERABLE S Performing Organization Address [facility] Co de Phone Number [facility] [place] [address] * (ABNORMAL) Differential, Automated (09/24/2016 9:56 AM EST) Neutrophil % 76.8 % [facility] Neutrophil Absolute 7.79(H) 1.70 - 6.10 x10(3)/mc L [facility] Lymph % 11.1 % [facility] Lymphocytes Abs 1.1 0.9 - 3.2 x10(3)/mc L [facility] Monocyte % 8.5 % [facility] Monocyte Abs 0.9 0.3 - 0.9 x10(3)/mc L [facility] Eos % 0.5 % [facility] Eosinophils Abs 0.0 0.0 - 0.4 x10(3)/mc L [facility] Basophil % 0.2 % [facility] Baso Absolute 0.0 0.0 - 0.1 x10(3)/mc L [facility] [...] MD HEMATOLOGY ORDERABL ES Performing Organization Address [facility]/ZIP Co de Phone Number [facility] [place] [address] * (ABNORMAL) Hemogram (09/24/2016 9:56 AM EST) [...] RDW Standard Deviation 45.0 37.0 - 46.0 [facility] LABORAT[facility] RDW coefficient of variation 12.6 11.5 - 14.1 % [facility] Mean Platelet Volume 9.4 7.6 - 12.9 fL [facility] NRBC% auto 1.1 % [facility] NRBC Absolute 0.110(H) 0.000 - 0.000 x10(3)/mc L [facility] Blood specimen (specimen) 09/24/2016 9:56 AM EST 09/24/2016 10:04 AM EST Narrative Resulting Agency Comment Spec In Lab Alirio Esparza MD HEMATOLOGY ORDERABL ES Performing Organization Address City/[facility]/ZIP Co de Phone Number [facility] [place] [address] * (ABNORMAL) Basic Metabolic Panel (non-fasting) (09/24/2016 [...] LABORATORY Est Glomerular Filtration Rate >60 >=60 [facility] Comment: This [...] the following links into your internet browser. http://[employer]DHnkdep http://[employer]DHMCnkf Blood specimen (specimen) 09/24/2016 9:56 AM EST 09/24/2016 10:04 AM EST Narrative Resulting Agency Comment Spec In Lab Alirio Esparza MD CHEMISTRY ORDERABLE S [facility] [place] [address] * XR Chest PA & Lateral (Generic) [...] MD CHEMISTRY ORDERABLE S Performing Organization Address [facility]/ZIP Co de Phone Number [facility] [place] [address] * POCT Glucose (09/22/2016 8:17 AM EST) Glucose, POC 131 65 - 199 mg/dL [facility] Comment: Supplemental ranges: <140 mg/dL before meals <180 mg/dL all other times of the day Blood specimen (specimen) 09/22/2016 8:17 AM EST 09/22/2016 8:17 AM EST Alirio Esparza MD POINT OF CARE TEST ORDERABLES Performing Organization Address [facility] Co de Phone Number [facility] [place] [address] * POCT Glucose (09/22/2016 4:01 AM EST) Glucose, POC 135 65 - 199 mg/dL [facility] Comment: Supplemental ranges: <140 mg/dL before meals <180 mg/dL all other times of the day Blood specimen (specimen) 09/22/2016 4:01 AM EST 09/22/2016 4:01 AM EST Alirio Esparza MD POINT OF CARE TEST ORDERABLES Performing Organization Address [facility] Co de Phone Number [facility] [place] [address] * Scan, Peripheral Blood (09/22/2016 4:00 AM EST) Plat estimate Normal [facility] RBC Morphology Abnormal [facility] Macrocyte 1-5 /HPF [facility] Plat, Giant Less than 1 /HPF [facility] Blood specimen (specimen) 09/22/2016 4:00 AM EST 09/22/2016 4:34 AM EST Narrative Resulting Agency Comment Spec In Lab Alirio Esparza MD HEMATOLOGY ORDERABL ES Performing Organization Address [facility]/ZIP Co de Phone Number [facility] [place] [address] * Electrolytes panel (09/22/2016 4:00 AM EST) Pathologist [facility] Sodium 145 135 - 145 mmol/L [facility] [...] MD CHEMISTRY ORDERABLE S Performing Organization Address [facility]/ZIP Co de Phone Number [facility] [place] [address] * (ABNORMAL) Differential, Automated (09/22/2016 4:00 AM EST) Pathologist [facility] Neutrophil % 70.9 % [facility] Neutrophil Absolute 5.33 1.70 - 6.10 x10(3)/mc L [facility] Lymph % 9.1 % [facility] Lymphocytes Abs 0.7(L) 0.9 - 3.2 x10(3)/mc L [facility] Monocyte % 18.0 % [facility] Monocyte Abs 1.4(H) 0.3 - 0.9 x10(3)/mc L [facility] Eos % 0.0 % [facility] Eosinophils Abs 0.0 0.0 - 0.4 x10(3)/ L [facility] Basophil % 0.1 % [facility] Baso Absolute 0.0 0.0 - 0.1 x10(3)/ L [facility] Immature Gran % 1.90 % [facility] Comment: Immature granulocytes(IG's)percentage and absolute count will include metamyelocytes, myelocytes, and promyelocytes. Blood smears from CBCs yielding IG's will be scanned manually for concordance. If this scan disagrees with the automated IG or if promyelocytes are noted, a manual differential will be performed. Immature Gran Absolute 0.14(H) 0.00 - 0.04 x10(3)/[facility] LABORATORY Blood specimen (specimen) 09/22/2016 4:00 AM EST 09/22/2016 4:34 AM EST Narrative Resulting Agency Comment Spec In Lab Alirio Esparza MD HEMATOLOGY ORDERABL ES Performing Organization Address City/State/[facility] Co de Phone Number [facility] [place] [phone] * (ABNORMAL) Hemogram (09/22/2016 4:00 AM EST) White Blood Cell 7.5 4.0 - 9.5 x10(3)/ L [facility] Red Blood Cell 2.93(L) 4.00 [...] Platelet 161 145 - 357 x10(3)/ L [facility] RDW Standard Deviation 44.0 37.0 - 46.0 fL [facility] RDW coefficient of variation 12.6 11.5 - 14.1 % [facility] Mean Platelet Volume 9.3 7.6 - 12.9 fL [facility] NRBC% auto 0.3 % [facility] NRBC Absolute 0.020(H) 0.000 - 0.000 x10(3)/mc L [facility] Blood specimen (specimen) 09/22/2016 4:00 AM EST 09/22/2016 4:34 AM EST Narrative Resulting Agency Comment Spec In Lab Alirio Esparza MD HEMATOLOGY ORDERABL ES [facility] [place] [id number] * (ABNORMAL) Cardiac Enzymes (09/22/2016 4:00 AM [...] [employer] 2000; 36: 959-969] Creatine Kinase 338(H) 0 - 160 unit/L [facility] Blood specimen (specimen) 09/22/2016 4:00 AM EST 09/22/2016 4:34 AM EST Narrative Resulting Agency Comment Spec In Lab Alirio Esparza MD CHEMISTRY ORDERABLE S Performing Organization Address [facility] Co de Phone Number [facility] [place] [address] * (ABNORMAL) Glucose, fasting (09/22/2016 4:00 AM [...] MD CHEMISTRY ORDERABLE S Performing Organization Address [facility] Co de Phone Number [facility] [place] [address] * (ABNORMAL) Creatinine (09/22/2016 4:00 AM EST) Creatinine 0.69(L) 0.70 - 1.20 mg/dL [facility] Comment: Please note that the pediatric reference intervals supplied above were not validated at [facility]. Results from pediatric patients should be interpreted in conjunction to the patient's age, height and muscle mass. Est Glomerular Filtration Rate >60 >=60 [facility] Comment: This [...] the following links into your internet browser. http://[employer]/DHnkdep [email or web address]://[employer]/DHMCnkf Blood specimen (specimen) 09/22/2016 4:00 AM EST 09/22/2016 4:34 AM EST Narrative Resulting Agency Comment Spec In Lab Alirio Esparza MD CHEMISTRY ORDERABLE S Performing Organization Address [facility] Co de Phone Number [facility] [place] [address] * BUN (09/22/2016 4:00 AM EST) Blood Urea Nitrogen 10 8 - 18 mg/dL [facility] Blood specimen (specimen) 09/22/2016 4:00 AM EST 09/22/2016 4:34 AM EST Narrative Resulting Agency Comment Spec In Lab Alirio Esparza MD CHEMISTRY ORDERABLE S Performing Organization Address [facility] Co de Phone Number [facility] [place] [address] * POCT Glucose (09/21/2016 9:59 PM EST) Glucose, POC 146 65 - 199 mg/dL [facility] Comment: Supplemental ranges: <140 mg/dL before meals <180 mg/dL all other times of the day Blood specimen (specimen) 09/21/2016 9:59 PM EST 09/21/2016 9:59 PM EST Alirio Esparza MD POINT OF CARE TEST ORDERABLES Performing Organization Address City/[facility] Co de Phone Number [facility] [place] [place] [address] * POCT Glucose (09/21/2016 7:26 PM EST) [facility] Glucose, POC 152 65 - 199 mg/dL [facility] Comment: Supplemental ranges: <140 mg/dL before meals <180 mg/dL all other times of the day Blood specimen (specimen) 09/21/2016 7:26 PM EST 09/21/2016 7:26 PM EST Alirio Esparza MD POINT OF CARE TEST ORDERABLES [facility] [place] [place] [address] * POCT Glucose (09/21/2016 6:00 PM EST) [facility] Glucose, POC 146 65 - 199 mg/dL [facility] Comment: Supplemental ranges: <140 mg/dL before meals <180 mg/dL all other times of the day Blood specimen (specimen) 09/21/2016 6:00 PM EST 09/21/2016 6:00 PM EST Alirio Esparza MD POINT OF CARE TEST ORDERABLES [facility] [place] [place] [address] * (ABNORMAL) BLOOD GAS 2 ARTERIAL (09/21/2016 4:42 PM EST) [facility] pH, Arterial 7.35(L) 7.35 - 7.45 [facility] FIO2 Art 40 % [facility] PF Ratio Art 270 [facility] Blood specimen (specimen) 09/21/2016 4:42 PM EST 09/21/2016 4:42 PM EST Alirio Esparza MD POINT OF CARE TEST ORDERABLES [facility] [place] [place] [address] * POCT Glucose (09/21/2016 4:07 PM EST) Glucose, POC 150 65 - 199 mg/dL [facility] Comment: Supplemental ranges: <140 mg/dL before meals <180 mg/dL all other times of the day Blood specimen (specimen) 09/21/2016 4:07 PM EST 09/21/2016 4:07 PM EST Alirio Esparza MD POINT OF CARE TEST ORDERABLES Performing Organization Address [facility] Co de Phone Number [facility] [place] [address] * (ABNORMAL) Hemoglobin (09/21/2016 4:05 PM EST) Hemoglobin 9.9(L) 11.7 - 15.5 gm/dL [facility] Blood specimen (specimen) 09/21/2016 4:05 PM EST 09/21/2016 4:20 PM EST Narrative Resulting Agency Comment Spec In Lab Alirio Esparza MD HEMATOLOGY ORDERABL ES Performing Organization Address [facility] Co de Phone Number [facility] [place] [place] [address] * Potassium (09/21/2016 4:05 PM EST) [facility] Potassium 4.6 3.5 - 5.0 mmol/L HOLD[facility] [...] MD CHEMISTRY ORDERABLE S Performing Organization Address [facility] Co de Phone Number [facility] [place] [address] * POCT Glucose (09/21/2016 2:52 PM EST) Glucose, POC 117 65 - 199 mg/dL [facility] Comment: Supplemental ranges: <140 mg/dL before meals <180 mg/dL all other times of the day Blood specimen (specimen) 09/21/2016 2:52 PM EST 09/21/2016 2:52 PM EST Alirio Esparza MD POINT OF CARE TEST ORDERABLES Performing Organization Address [facility] Co de Phone Number [facility] [place] [place] [address] * POCT Glucose (09/21/2016 1:51 PM EST) Glucose, POC 108 65 - 199 mg/dL [facility] Comment: Supplemental ranges: <140 mg/dL before meals <180 mg/dL all other times of the day Blood specimen (specimen) 09/21/2016 1:51 PM EST 09/21/2016 1:51 PM EST Alirio Esparza MD POINT OF CARE TEST ORDERABLES Performing Organization Address [facility] de Phone Number [facility] [place] [address] * POCT Glucose (09/21/2016 12:54 PM EST) Glucose, POC 128 65 - 199 mg/dL [facility] Comment: Supplemental ranges: <140 mg/dL before meals <180 mg/dL all other times of the day Blood specimen (specimen) 09/21/2016 12:54 PM EST 09/21/2016 12:54 PM EST Alirio Esparza MD POINT OF CARE TEST ORDERABLES Performing Organization Address [facility] Co de Phone Number [facility] [place] [address] * EKG 12 Lead (09/21/2016 12:26 PM EST) Ventricular rate 87 BPM MUSE SYSTEM Atrial Rate 87 BPM MUSE SYSTEM P-R Interval 256 ms MUSE SYSTEM QRS Duration 90 ms MUSE SYSTEM Q-T Interval 406 ms MUSE SYSTEM QTC Calculated (Bezet) 488 ms MUSE SYSTEM Calculated P [place] 24 degrees MUSE SYSTEM Calculated R [place] 21 degrees MUSE SYSTEM Calculated T [place] -5 degrees MUSE SYSTEM INTERPRETATION Sinus rhythm [...] course of the esophagus and below the [id number]-hi-bbfa. There is a right IJ PA catheter [...] the course of theesophagus and below the tcqwl-lv-[id number]. There is a right IJ PA catheter [...] [facility] FIO2 Art 100 % [facility] PF Ratio Art 356 [facility] Blood specimen (specimen) 09/21/2016 12:20 PM EST 09/21/2016 12:20 PM EST Alirio Esparza MD POINT OF CARE TEST ORDERABLES Performing Organization Address City/State/[facility] Co de Phone Number [facility] [place] [address] * (ABNORMAL) BLOOD GAS 2 ARTERIAL (09/21/2016 [...] [facility] FIO2 Art 95 % [facility] Flow Art 0.7 LPM [facility] PF Ratio Art 313 [facility] Temp Art 36.7 Celsius [facility] Blood specimen (specimen) 09/21/2016 10:54 AM EST 09/21/2016 10:54 AM EST Alirio Esparza MD POINT OF CARE TEST ORDERABLES Performing Organization Address [facility] Co de Phone Number [facility] [place] [address] * Thrombin time (09/21/2016 10:50 AM EST) [...] MD HEMATOLOGY ORDERABLE S Performing Organization Address [facility]/ZIP Co de Phone Number [facility] [place] [address] * Fibrinogen (09/21/2016 10:50 AM EST) Fibrinogen [...] MD HEMATOLOGY ORDERABLE S Performing Organization Address [facility] de Phone Number [facility] [place] [address] * APTT (09/21/2016 10:50 AM EST) Partial Thromboplastin Time 32 25 - 35 sec [facility] Comment: The recommended therapeutic range for full dose, unfractionated heparin at [facility] is 80 ? 114 seconds. The use of the anti-Xa (heparin) level rather than the PTT is recommended for monitoring anticoagulation intensity in critically ill patients receiving unfractionated heparin by continuous IV infusion. Blood specimen (specimen) 09/21/2016 10:50 AM EST 09/21/2016 10:56 AM EST Narrative Resulting Agency Comment Spec In Lab Luis Enrique Quarles MD HEMATOLOGY ORDERABLE S Performing Organization Address [facility] de Phone Number [facility] [place] [address] * (ABNORMAL) Prothrombin Time (09/21/2016 10:50 AM [...] HEMATOLOGY ORDERABLE S [facility] [place] [address] * (ABNORMAL) Hemogram (09/21/2016 10:50 AM EST) [...] [facility] NRBC% auto 0.1 % [facility] NRBC Absolute 0.020(H) 0.000 - 0.000 x10(3)/mc L [facility] Blood specimen (specimen) 09/21/2016 10:50 AM EST 09/21/2016 10:56 AM EST Narrative Resulting Agency Comment Spec In Lab Luis Enrique Quarles MD HEMATOLOGY ORDERABLE S Performing Organization Address [facility]/[place] [address] * Prepare Platelets, Apheresis (09/21/2016 10:30 AM EST) Pathologist [facility] Dispensed? Yes [facility] Blood specimen (specimen) 09/21/2016 10:30 AM EST 09/21/2016 10:28 AM EST Alirio Esparza MD BLOOD BANK PRODUCT ORDERABLES Performing Organization Address [facility] [place] [place] [address] * (ABNORMAL) BLOOD GAS 2 ARTERIAL (09/21/2016 10:05 AM EST) pH, Arterial 7.33(L) 7.35 - 7.45 [facility] PCO2, Arterial 54(Critic al) 35 - 45 mmHg [facility] Comment:Noted by instrument mechanic weapons system. PO2, Arterial 218(H) 85 - 104 mmHg [...] [facility] Comment: Noted by instrument mechanic weapons system. Please note: Patients with WBC >100,000 may [...] [facility] Temp Art 37.0 Celsius [facility] Blood specimen (specimen) 09/21/2016 10:05 AM EST 09/21/2016 10:05 AM EST Alirio Esparza MD POINT OF CARE TEST ORDERABLES [facility] [place] [place] [address] * (ABNORMAL) BLOOD GAS 2 ARTERIAL (09/21/2016 9:44 AM EST) pH, Arterial 7.22(Criti gabrielle) 7.35 - 7.45 [facility] Comment:Noted by instrument mechanic weapons system. PCO2, Arterial 70(Critica l) 35 - 45 mmHg [facility] Comment:Noted by instrument mechanic weapons system. PO2, Arterial 224(H) 85 - 104 mmHg [...] CARE TEST ORDERABLES [facility] [address] * (ABNORMAL) Hemoglobin (09/21/2016 9:42 AM EST) Hemoglobin 7.2(L) 11.7 - 15.5 gm/dL [facility] Blood specimen (specimen) 09/21/2016 9:42 AM EST 09/21/2016 9:51 AM EST Narrative Resulting Agency Comment Spec In Lab Alirio Esparza MD HEMATOLOGY ORDERABL ES [facility] [place] [address] * Platelet count (09/21/2016 9:42 AM EST) Platelet 159 145 - 357 x10(3)/mc L [facility] Immature Plt % 1.6 0.0 - 7.4 % [facility] Comment: Limitation of the Immature Platelet Fraction (IPF)-May be less reliable when the platelet count is less than 41u996/uL due to statistical imprecision. The IPF value [...] in a decreased state of production. References: [employer] The Clinical Value of the Immature Platelet Fraction (IPF) in Cell Recovery Document Number 10-1143 12/2010 [employer] The Role of the Immature Platelet Fraction (IPF) in the Differential Diagnosis of Thrombocytopenia, Document MKT-[id number] [id number] [id number] Blood specimen (specimen) 09/21/2016 9:42 AM EST 09/21/2016 9:51 AM EST Narrative Resulting Agency Comment Spec In Lab Alirio Esparza MD HEMATOLOGY ORDERABL ES [facility] [place] [address] * (ABNORMAL) Hematocrit (09/21/2016 9:42 AM EST) [...] MD HEMATOLOGY ORDERABL ES Performing Organization Address [facility] de Phone Number [facility] [place] [address] * Fibrinogen (09/21/2016 9:42 AM EST) Fibrinogen [...] MD HEMATOLOGY ORDERABL ES Performing Organization Address [facility] de Phone Number [facility] [place] [address] * (ABNORMAL) BLOOD GAS 2 ARTERIAL (09/21/2016 9:10 AM EST) pH, Arterial 7.36 7.35 - 7.45 [facility] [...] [facility] Temp Art 37.0 Celsius [facility] Blood specimen (specimen) 09/21/2016 9:10 AM EST 09/21/2016 9:10 AM EST Alirio Esparza MD POINT OF CARE TEST ORDERABLES Performing Organization Address City/State/[facility] Co de Phone Number [facility] [place] [address] * Surgical Pathology Report (09/21/2016 9:09 AM EST) Final Diagnosis [id number] ?Location: 3T The signing pathologist has (i) [...] Esparza MD PATHOLOGY/CYTOLOGY ORDERABLES Performing Organization Address City/[facility] Co de Phone Number [facility] [address] * Specimen to Pathology (surgical or derm) (09/21/2016 9:09 AM EST) AP Specimen 09/21/2016 9:09 AM EST 09/21/2016 9:09 AM EST Narrative [facility] - 09/21/2016 9:09 AM EST Specimen requisition ordered. ??Separate Pathology report to follow Alirio Esparza MD PATHOLOGY/CYTOLOGY ORDERABLES Performing Organization Address [facility]/ZIP Co de Phone Number [facility] [place] [address] * (ABNORMAL) BLOOD GAS 2 ARTERIAL (09/21/2016 [...] CARE TEST ORDERABLES [facility] [place] [address] * (ABNORMAL) BLOOD GAS 2 ARTERIAL (09/21/2016 [...] [facility] FIO2 Art 95 % [facility] Flow Art 1.1 LPM [facility] PF Ratio Art 298 [facility] Temp Art 35.6 Celsius [facility] Blood specimen (specimen) 09/21/2016 8:18 AM EST 09/21/2016 8:18 AM EST Alirio Esparza MD POINT OF CARE TEST ORDERABLES Performing Organization Address [facility] Co de Phone Number [facility] [place] [address] * Prepare RBC (09/21/2016 7:05 AM EST) Dispensed? Yes [facility] Blood specimen (specimen) 09/21/2016 7:05 AM EST 09/21/2016 7:02 AM EST Alirio Esparza MD BLOOD BANK PRODUCT ORDERABLES Performing Organization Address [facility] Co de Phone Number [facility] [place] [address] * POCT Glucose (09/21/2016 6:42 AM EST) Glucose, POC 104 65 - 199 mg/dL [facility] Comment: Supplemental ranges: <140 mg/dL before meals <180 mg/dL all other times of the day Blood specimen (specimen) 09/21/2016 6:42 AM EST 09/21/2016 6:42 AM EST Alirio Esparza MD POINT OF CARE TEST ORDERABLES Performing Organization Address [facility] de Phone Number [facility] [place] [address] documented in this encounter Visit Diagnoses Not [...] dose on Wed09/21/16 at 1230, Until Discontinued, Prather teeth, Routine Given 09/25/2016 9:40 AM EST [...] (Due - Provider: Kendall Martínez [facility]) aspirin chewable tablet 81 mg(Linked Group [...] dose on Wed09/21/16 at 1230, Until Discontinued, Prather teeth, Routine 0900 (Not Given - Provider: [...] Routine documented in this encounter Care Teams Feller Hand Relationship Specialty Start Date End Date Deborah Quiroga APRN PCP - General Family Medicine 03/24/16 02/04/23 documented as of this encounter
--- OUTSIDE RECORDS SUMMARY | 2024-03-28 14:31 | XMS_ITS | Encounter Summary ---
Author Organization [facility] Address [facility] [place] [address] Care Team Providers Care Field Party Manager Name Role Phone Ashley Quirogan Cornelius ANURAG Primary Care Provider [phone] Encounter Details Date Type Department Care Team (Late st Contact Info) Description 08/11/2016 Telephone Hematology [place] [phone] Markel Borjas MD [address] [place]AT[place] [address] Social History Tobacco Use Types Packs/Day Years [...] 4:15 PM EDT Office Visit Dermatology at [place] [address] [place] [address] Marek Bonilla MD [address] [place] [address] documented as of this encounter Visit Diagnoses Not on filedocumented in this encounter Care Teams Field Party Manager Relationship Specialty Start Date End Date Deborah Quiroga APRN PCP - General Family Medicine 03/24/16 02/04/23 documented as of this encounter
--- OUTSIDE RECORDS SUMMARY | 2024-03-28 14:31 | XMS_ITS | Encounter Summary ---
[place] [address] Care Team Providers Care Compound Worker Name Role Phone Deborah Quiroga APRN Primary Care Provider [phone] Encounter Details Date Type Department Care Team (Late st Contact Info) Description 09/17/2016 External Results Hematology [place] [address] Alexandrea Greenwood RN Neutropenia, unspecified type Social [...] 4:15 PM EDT Office Visit Dermatology at [place] [address] [place] [phone] Marek Bonilla MD [address], [place] [address] documented as of this encounter Procedures Procedure [...] type documented in this encounter Care Teams Compound Worker Relationship Specialty Start Date End Date Deborah Quiroga, SYSTEMS SUPPORT ENGINEER PCP - General Family Medicine 03/24/16 02/04/23 documented as of this encounter
--- OUTSIDE RECORDS SUMMARY | 2024-03-28 14:31 | XMS_ITS | Encounter Summary ---
Author [place] [address] Care Team Providers Care Professor Computer Science Name Role Phone Ashley Quirogan Cornelius ANURGA Primary Care Provider [phone] Reason for Visit * Reason Onset Date Comments Medical Care Coordination 09/14/2016 Encounter Details Date Type Department Care Team (Late st Contact Info) Description 09/14/2016 Telephone Hematology [place] [phone] Alexandrea Greenwood RN Medical Care Coordination Social [...] 09/14/2016 9:10 AM EST Message received from executive legal secretary: Injection/Infusion Referral Call placed to [facility] Infusion Room Spoke charis Bragg. Services to be provided for pt are: Miles 09/16/16 Mahsa confirmed they would provide services to pt and would contact with appointment time. Pt aware to expect the phone call ??orders faxed to [phone]). documented in this encounter Plan of Treatment Upcoming Encounters Date Type Department Care Team (Late st Contact Info) Description 03/01/2025 4:15 PM EDT Office Visit Dermatology at [place] [address] [place] [phone] Marek Bonilla MD [address] [place] [address] documented as of this encounter Visit Diagnoses Not on filedocumented in this encounter Care Teams Professor Computer Science Relationship Specialty Start Date End Date Deborah Quiroga APRN PCP - General Family Medicine 03/24/16 02/04/23 documented as of this encounter
--- OUTSIDE RECORDS SUMMARY | 2024-03-28 14:31 | XMS_ITS | Encounter Summary ---
Author Organization [facility] [place] [address] Care Team Providers Care Housekeeper/Custodian/Laundry Worker Name Role Phone Deborah Quiroga APRN Primary Care Provider [phone] Encounter Details Date Type Department Care Team (Late st Contact Info) Description 08/18/2016 4:20 PM EST Clinical [place] [phone] Social History Tobacco Use Types Packs/Day Years [...] 4:15 PM EDT Office Visit Dermatology at [place] [address] [place] [address] Marek Bonilla MD [address], [place] [address] documented as of this encounter Visit Diagnoses Not on filedocumented in this encounter Care Teams Housekeeper/Custodian/Laundry Worker Relationship Specialty Start Date End Date Deborah Quiroga APRN PCP - General Family Medicine 03/24/16 02/04/23 documented as of this encounter
--- OUTSIDE RECORDS SUMMARY | 2024-03-28 14:31 | XMS_ITS | Encounter Summary ---
[place] [address] Care Team Providers Care Foreign Service Officer Name Role Phone JunaidDeborah APRN Primary Care Provider [phone] Reason for Visit * Reason Onset Date Comments Labs Only 09/16/2016 Encounter Details Date Type Department Care Team (Late st Contact Info) Description 09/16/2016 Telephone Hematology [place] [phone] Alexandrea Greenwood, RN Labs Only Social History [...] 09/16/2016 11:09 AM EST Message received from medical office secretary: Purnima is having her Neulasta done today at [facility]. ??She is wondering if we want to do a CBC prior to the injection? [phone] Borjas: CBC is fine RN spoke with Swapna at [facility] who confirms they can draw CBC on pt today, RN faxed CBC w/diff to [facility] lab at [phone] RN relayed to pt that CBC ordered had been faxed to [facility], pt will have CBC drawn today prior to neulasta injection. documented in this encounter Plan of Treatment Upcoming Encounters Date Type Department Care Team (Late st Contact Info) Description 03/01/2025 4:15 PM EDT Office Visit Dermatology at [place] [address] [place] [address] Marek Bonilla MD [address] [place] [address] documented as of this encounter Results * [...] type documented in this encounter Care Teams Foreign Service Officer Relationship Specialty Start Date End Date Deborah Quiroga APRN PCP - General Family Medicine 03/24/16 02/04/23 documented as of this encounter
--- OUTSIDE RECORDS SUMMARY | 2024-03-28 14:31 | XMS_ITS | Encounter Summary ---
[place] [address] Care Team Providers Care Change Management Expert Name Role Phone Deborah Quiroga APRN Primary Care Provider [phone] Reason for Visit * Reason Onset Date Comments Prior Authorization 09/11/2016 Neulasta Encounter Details Date Type Department Care Team (Late st Contact Info) Description 09/11/2016 Telephone Hematology [place] [phone] Monica Wick Prior Authorization (Neulasta ) Social [...] AM EST Prior Auth for Neulasta (Approved) [facility] is a covered facility under the members plan. ID# [id number] Call placed to [phone] Rationale: Can you please start a PA for this pt to receive as outpatient at [facility] on 09/16/16? 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 ??Her last ANC was 0.56 (or 560) on 08/04/16. ??This will need to be approved through her medical as out patient. J code for neulasta. ?? [id number]. Spoke w/ Anna Marie Call Reference [id number] Copay: $ Deductible is not met, patient will have out of pocket costs until deductible is met. documented in this encounter Plan of Treatment Upcoming Encounters Date Type Department Care Team (Late st Contact Info) Description 03/01/2025 4:15 PM EDT Office Visit Dermatology at [place] [address] [place] [address] Marek Bonilla MD [address] [place] [address] documented as of this encounter Visit Diagnoses Not on filedocumented in this encounter Care Teams Change Management Expert Relationship Specialty Start Date End Date Deborah Quiroga APRN PCP - General Family Medicine 03/24/16 02/04/23 documented as of this encounter
--- OUTSIDE RECORDS SUMMARY | 2024-03-28 14:31 | XMS_ITS | Encounter Summary ---
[place] [address] Care Team Providers Care Postie Name Role Phone Deborah Quiroga ANURAG Primary Care Provider [phone] Reason for Visit * Reason Onset Date Comments Medical Care Coordination 07/31/2016 Encounter Details Date Type Department Care Team (Late st Contact Info) Description 07/31/2016 Telephone Hematology [place] [phone] Alexandrea Greenwood RN Medical Care Coordination Social [...] 08/04/15 RN spoke with Aydee of the [facility] lab who states they can draw pt's cbc on 08/04/15, RN faxed lab req to [phone] at Aydee's request. RN instructed pt on Dr. Borjas's direction above. Pt verbalized understanding. documented in this encounter Plan of Treatment Upcoming Encounters Date Type Department Care Team (Late st Contact Info) Description 03/01/2025 4:15 PM EDT Office Visit Dermatology at [place] [address] [place] [address] Marek Bonilla MD [address], [place] [address] documented as of this encounter Visit Diagnoses Not on filedocumented in this encounter Care Teams Postie Relationship Specialty Start Date End Date Deborah Quiroga APRN PCP - General Family Medicine 03/24/16 02/04/23 documented as of this encounter
--- OUTSIDE RECORDS SUMMARY | 2024-03-28 14:31 | XMS_ITS | Encounter Summary ---
[place] [address] Care Team Providers Care Pigskin Trimmer Name Role Phone Deborah Quiroga APRN Primary Care Provider [phone] Encounter Details Date Type Department Care Team (Late st Contact Info) Description 08/04/2016 External Results Hematology [place] [address] Alexandrea Greenwood RN Neutropenia, unspecified type Social [...] 4:15 PM EDT Office Visit Dermatology at [place] [address] [place] [phone] Marek Bonilla MD [address], [place] [address] documented as of this encounter Procedures Procedure [...] type documented in this encounter Care Teams Pigskin Trimmer Relationship Specialty Start Date End Date Deborah Quiroga, MEDICAL ORDERLY PCP - General Family Medicine 03/24/16 02/04/23 documented as of this encounter
--- OUTSIDE RECORDS SUMMARY | 2024-03-28 14:31 | XMS_ITS | Encounter Summary ---
[place] [address] Care Team Providers Care Health Sciences Dean Name Role Phone Ashley Quirogan Cornelius ANURAG Primary Care Provider [phone] Reason for Visit * Reason Onset Date Comments Medication Management 09/14/2016 Encounter Details Date Type Department Care Team (Late st Contact Info) Description 09/14/2016 Telephone Hematology [place] [phone] Alexandrea Greenwood, servicer travel trailers Management Social History Tobacco Use Types Packs/Day [...] 9:12 AM EST Message received from medical records secretary: Purnima called, asking for clarification on [...] 4:15 PM EDT Office Visit Dermatology at [place] [address] [place] [address] Marek Bonilla MD [address] [place] [address] documented as of this encounter Visit Diagnoses Not on filedocumented in this encounter Care Teams Health Sciences Dean Relationship Specialty Start Date End Date Deborah Quiroga APRN PCP - General Family Medicine 03/24/16 02/04/23 documented as of this encounter
--- OUTSIDE RECORDS SUMMARY | 2024-03-28 14:31 | XMS_ITS | Encounter Summary ---
[place] [address] Care Team Providers Care Brazer Induction Name Role Phone Deborah Quiroga ANURAG Primary Care Provider [phone] Encounter Details Date Type Department Care Team (Late st Contact Info) Description 09/11/2016 Orders Only Hematology [place] [address] Alexandrea Greenwood RN Social History [...] the original note were not included. [facility] ON[facility] [phone] Date: 09/11/16 Patient Name: Purnima Thacker : 1955 Diagnosis: Neutropenia Referral to [site]: [facility] Orders: ? Growth factor: [x] Neulasta 6mg SQ injection x 1 on 09/16/16 Signature: Markel Borjas MD beeper # [id number] Co-signature [if needed]: documented in this encounter Plan of Treatment Upcoming Encounters Date Type Department Care Team (Late st Contact Info) Description 03/01/2025 4:15 PM EDT Office Visit Dermatology at [place] [address] [place] [address] Marek Bonilal MD [address], [place] [address] documented as of this encounter Procedures Procedure Name Priority Date/Time Associated Diagnosis Comments TRANSESOPHAGEAL ECHOCARDIOGRAM (GAVINO) Routine 09/22/2016 documented in this encounter Results * Transesophageal Echocardiogram (GAVINO) (09/22/2016) Anatomical Region Laterality Modality Other 09/22/2016 Narrative 09/22/2016 8:30 AM EST Procedure: ?Transesophageal Echocardiogram Patient: ?ANDREW ECHOLS M ? (Age): 1955(61y) Med Rec#: ? [id number] ?Sex: ?M ? Site Loc: ? [facility] ?Ht / Wt: ??(cm)/ (kg) ? Pt. Loc: ?OR ? Study Date: ?? 09/21/2016 ?Pt. Type: Tape: ? 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 AVR for severe Rhythm: ? [...] ? Mid-Inferior ?Normal ? Mid-Inferoseptal ?Normal ? [place]-Septal ? Normal ? [place]-Anterior ? Normal ? [place]-Lateral ?Normal ? [place]-Inferior ? Normal ? [place]-Tip ?Normal ? This report has been electronically signed by: Henrik Yarbrough M.D. ? 09/22/2016 08:30:41 Images reviewed and interpretation verified [facility] Procedure Note Henrik Yarbrough MD - 09/22/2016 Procedure: Transesophageal Echocardiogram Patient: ANDREW Mejias (Age): 1955(61y) Med Rec#: [id number] Sex: M Site Loc: [facility] Ht / Wt: (cm)/ (kg) Pt. Loc: OR Study Date: 09/21/2016 Pt. 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 09/22/2016 08:30:41 Images reviewed and interpretation verified [facility] Unknown ECHO ORDERABLES documented in this encounter Visit Diagnoses Not on filedocumented in this encounter Care Teams Brazer Induction Relationship Specialty Start Date End Date Deborah Quiroga APRN PCP - General Family Medicine 03/24/16 02/04/23 documented as of this encounter
--- OUTSIDE RECORDS SUMMARY | 2024-03-28 14:31 | XMS_ITS | Encounter Summary ---
[place] [address] Care Team Providers Care Drum Handler Name Role Phone Deborah Quiroga APRN Primary Care Provider [phone] Encounter Details Date Type Department Care Team (Late st Contact Info) Description 08/18/2016 Orders [place] [address] Alirio Esparza MD Aortic valve stenosis, unspecified [...] 4:15 PM EDT Office Visit Dermatology at [place] [address] [place] [phone] Marek Bonilla MD [address], [place] [address] documented as of this encounter Results * Basic Metabolic Panel (non-fasting) (08/18/2016 4:50 PM EST) Glucose 82 65 - 199 mg/dL [facility] Comment:Diabetes: >=200 mg/d L plus symptoms Blood Urea Nitrogen 12 8 - 18 mg/dL [facility] Creatinine 0.87 0.70 - 1.20 mg/dL [facility] Comment: Please note that the pediatric reference intervals supplied above were not validated at [facility]. Results from pediatric patients should be interpreted in conjunction to the patient's age, height and muscle mass. Sodium 142 135 - 145 mmol/L [facility] [...] mmol/L [facility] Carbon Dioxide 26 22 - 31 mmol/L [facility] Anion Gap 14 5 - 15 mmol/L [facility] Calcium 9.7 8.5 - 10.5 mg/dL [facility] Est Glomerular Filtration Rate >60 >=60 [facility] Comment: [...] the following links into your internet browser. http://[employer]DHnkdep http://[employer]DHMCnkf Blood specimen (specimen) 08/18/2016 4:50 PM EST 08/18/2016 5:03 PM EST Narrative Resulting Agency Comment Spec In Lab Alirio Esparza MD CHEMISTRY ORDERABLE S [facility] [place] [address] documented in this encounter Visit Diagnoses Diagnosis Aortic valve stenosis, unspecified etiology documented in this encounter Care Teams Drum Handler Relationship Specialty Start Date End Date Deborah Quiroga, YACHT MASTER PCP - General Family Medicine 03/24/16 02/04/23 documented as of this encounter
--- OUTSIDE RECORDS SUMMARY | 2024-03-28 14:31 | XMS_ITS | Encounter Summary ---
[place] [address] Care Team Providers Care Glove Finisher Name Role Phone Junaid, Deborah Shields APRN Primary Care Provider [phone] Reason for Visit * Auth/Cert Specialty Diagnoses / Procedures Referred By Crispin t Referred To Contact Diagnoses Aortic stenosis Procedures PRO REPLACE AORT VALV, PROSTH VALV @REPLACE AORTIC VALVE, OPEN, W\CPB, W\PROSTHETIC VALVE (WRVU 41.32) Referral ID Status Reason Start Date Expiration Date Visits Re quested Visits Authorized [id number] 1 1 Encounter Details Date Type Department Care Team (Late st Contact Info) Description 09/21/2016 7:25 AM EST Anesthesia Event [place] [address] Luis Enrique Quarles MD [facility] [address] [place] [address] Henrik Cooper MD [facility] [address] [place] [address] Anesthesia Record Procedure Summary Procedure Name Responsible [...] 0819 Sternotomy 0844 CV Bypass init 1009 Record Filing Clerk 1014 An Clamp Remove 1031 CP Bypass [...] Tube 09/21/16 (#28 angled chest tube to [place]: left: pericardial); Left; 09/22/16; 1119 09/21/16 0000 by Toshia Alejandre RN 09/22/16 1119 by Vero Bonilla RN Chest Tube 09/21/16 (#28 straig ht chest tube to [place]; right: mediastinal'); Right; mediastinum; 09/22/16; 1118 09/21/16 0000 by Toshia Alejandre RN 09/22/16 1118 by Vero Bonilla RN (RETIRED) Peripheral IV Line - Single Lumen 09/21/16; 0648; metacarpal vein (top of hand), left; [id number] catheter system; 20 gauge; valdo Arteaga; 09/23/16; 1251 09/21/16 0648 by Bhumi Arteaga RN 09/23/16 1251 by Henrik Webb RN (RETIRED) Percutaneous Central Line - Single Lumen 09/21/16; 0730; internal jugular vein, right; Ultrasound Guidance; Yes; 9 Fr; kenneth; YUSRA; CVC Protocol Performed; no longer indicated; 09/22/16; 1205 09/21/16 0730 by Roseline Hererra RN 09/22/16 1205 by Vero Bonilla RN [...] Cooper MD - 09/21/2016 6:50 PM EST [facility] Department of Anesthesiology Post-procedure Note Patient: Purnima Thacker Procedure Summary Date Anesthesia Start Anesthesia Stop Room / Location 09/21/[address] [facility] OR 16 / [facility] MAIN OR Procedure Diagnosis Surgeon Responsible Provider @REPLACE AORTIC VALVE, OPEN, W\CPB, W\PROSTHETIC VALVE (WRVU 41.32) (N/A Chest); @AORTOPLASTY FOR SUPRAVALVULAR STENOSIS (WRVU 29.33) (N/A Chest) () Alirio Francisco MD Clark, Jeffrey A, MD All Anesthesia Providers: Anesthesiologist: Luis Enrique Quarles MD Staff Physician: Henrik Cooper MD Last (1hr) Vitals: BP Temp 36.1 ??C (97 ??F) (09/21/16 1800) Pulse 79 (09/21/16 1800) Resp 11 (09/21/16 1800) SpO2 98 % (09/21/16 1800) Patient Location: [facility] Level of Consciousness: Sedated (Pharmacologic/Intentional) Pain Management: [...] 4:15 PM EDT Office Visit Dermatology at [place] [address] [place] [address] Marek Bonilla MD [address] [place] [address] RD, [place] [address] documented as of this encounter Visit Diagnoses [...] mg documented in this encounter Care Teams Glove Finisher Relationship Specialty Start Date End Date Deborah Quiroga, FLIGHT TEACHER PCP - General Family Medicine 03/24/16 02/04/23 documented as of this encounter
--- OUTSIDE RECORDS SUMMARY | 2024-03-28 14:31 | XMS_ITS | Encounter Summary ---
Author Organization Formerly [facility] [place] [address] Care Team Providers Care International Student Counselor Name Role Phone Ashley Quirogan Cornelius ANURAG Primary Care Provider [phone] Reason for Referral * Consultation (Routine) - Specialty Diagnoses / Procedures Referred By Contact Referred To Contact Cardiac Rehabilitation Diagnoses S/P AVR Alirio Esparza MD [facility] DR [place] [address] Cardiac Rehab, [address] [place] [address] Referral ID Status Reason Start Date Expiration Date V isits Requested Visits Authorized [id number] Consult, Test & Treat 09/25/2016 03/24/2017 36 36 Reason for Visit * Auth/Cert Specialty Diagnoses / Procedures Referred By Contkrystle t Referred To Contact Diagnoses Aortic stenosis Procedures PRO REPLACE AORT VALV, PROSTH VALV @REPLACE AORTIC VALVE, OPEN, W\CPB, W\PROSTHETIC VALVE (WRVU 41.32) Referral ID Status Reason Start Date Expiration Date Visits Re quested Visits Authorized [id number] 1 1 Encounter Details Date Type Department Care Team (Latest Contact Info) Description 09/21/2016 6:08 AM EST - 09/25/2016 4:33 PM EST Hospital Encounter Inter[place] [id number] Alirio Esparza MD Aortic valve stenosis, unspecified [...] Patient Age: 61 y.o. Birthdate: 1955 Language: Emirati Race: White Ethnicity: Not nor Admit Date: 09/21/2016 Discharge Date: 09/25/2016 Attending Physician: Alirio Esparza MD Follow-up Recommendations for Providers: Please continue routine management of cardiovascular risk factors including blood pressure, lipids,glucose, etc. Please note any changes to medications. Patient to follow-up with PCP, Deborah Quiroga APRN, in 1-2 weeks. Patient to follow-up with Coconut Boiler, Dr. Antelmo Burrell, in two weeks. Patient to follow-up with Cardiac Surgery, Dr. Alirio Esparza, to be scheduled for before 10/19/2016, with CXR, EKG, and Echo. Inpatient Provider Contact Information: [facility] Section of Cardiac Surgery [facility] [address] FAX [phone] Discharge Diagnoses (Hospital Problems) Primary Diagnoses: Secondary [...] 41.32) performed by Alirio Esparza MD at [facility] MAIN OR ??? Pro aortoplas for supravalv sten N/A 09/21/2016 @AORTOPLASTY FOR SUPRAVALVULAR STENOSIS (WRVU 29.33) performed by Alirio Esparza MD at [facility] MAIN OR Prior To Admission [...] Hospital Course: Purnima Thacker was admitted to [facility] on 09[facility]21[facility]2016 via the Same Day Program. [...] Alirio Esparza and/or the Cardiac Surgery Physician Director Search Team may be reached at . Antibiotic [...] Dr. Alirio Jones. You may use a [place] Track or treadmill but avoid any pulling [...] friends, go to a movie, go to yazdanism, etc. Heavy activities: No hunting, skiing, jogging, [...] the outpatient Phase 2 Cardiac Rehabilitation at [facility]. The patient agrees to a referral to this program. The referral will be sent at discharge and the patient should be contacted by the program within 1- 2 weeks from discharge. Future Appointments and Orders Future Appointments Provider Department Dept Phone 11/20/2016 11:30 AM Markel Borjas MD [facility] [phone] Future Orders Complete By Expires Echocardiogram Transthoracic([place]) [EYQ840 Custom] 10/18/2016 (Approximate) 09/18/2017 Process Instructions: If the Echocardiogram is to be PERFORMED in a location other than [place]--STOP and order [id number], Echocardiogram South/External. Scheduling Instructions: Questions: Is a Bubble Study requested?: No Does the patient have Congenital Heart Disease?: No Does patient require sedation?: None GA rationale: Should this service be billed to the research sponsor?: EKG 12 Lead [EKG1 Custom] 10/18/2016 (Approximate) 09/25/2017 Process Instructions: Scheduling Instructions: Questions: Which location will this be performed?: [place] Is a rhythm strip needed?: No If EKG Reason is Pre-op Evaluation, indicate diagnosis for surgery.: Should this service be billed to the research sponsor?: XR Chest PA & Lateral (Generic) [[id number] Custom] 10/18/2016 (Approximate) 09/25/2017 Process Instructions: Scheduling Instructions: Questions: Where will study be performed?: [facility]- Radiology Portable exam?: No Reason for exam and clinical history: s/p AVReplacement, patch annuloplasty 1 month f/u Other pertinent information: Stat read required?: Date of injury if applicable: Requested Time: Referral to Cardiac Rehab [[id number] Custom] As directed Process Instructions: If no progress note charted, please enter Clinical details in comments. Scheduling Instructions: Questions: My question or request is: s/p AVR. Cardiac rehab at [facility] Referral to Home Health - at DISCHARGE [RYZ9711 CPT(R)] As directed Process Instructions: Scheduling Instructions: Comments: DOCUMENTATION FOR VNA SERVICES (INCLUDING THOSE PATIENTS WITH MEDICARE COVERAGE REQUIRING HOME VNA SERVICES AND/OR HOSPICE SERVICES) PATIENT'S LOCATION: Purnima Magalie Kirstie [address] [place] [phone] (home) No relevant phone numbers on file. Mechanical Cad Drafter's Name: self In discussion with the attending physician, it is certified that this patient is under their care and that they, or a Nurse Practitioner, or Physician Director Search who is working directly with them, hada [...] for services as follows: HOME HEALTH AGENCY: [facility] PHONE: [phone] FAX: [phone] RN orders: Cardiopulmonary assessment, incisional assessment, assess [...] issues please call the Cardiac SurgeryOffice at [phone] FOR MEDICARE ONLY: In discussion with the [...] AFTER 09/30/16 Signed: Crispin Aranda PA-C 09/25/2016 [facility] Section of Cardiac Surgery [facility] [phone] FAX [phone] Date: 09/25/2016 CC: ANURAG Alford Caryn E, APRN [address] [place] [address] documented in this encounter Discharge Instructions * [...] Alirio Esparza and/or the Cardiac Surgery Physician Director Search Team may be reached at . Antibiotic [...] Dr. Alirio Jones. You may use a [place] Track or treadmill but avoid any pulling [...] friends, go to a movie, go to yazdanism, etc. Heavy activities: No hunting, skiing, jogging, [...] the outpatient Phase 2 Cardiac Rehabilitation at [facility]. The patient agrees to a referral [...] PM EST Cardiac Surgery Progress Note: ID: [id number] S/p AVR, patch aortoplasty POD#2. PMH of [...] Gas) No results found for: PHART, PO2ART, FWR5LGA Assessment/Plan: TPW out this am. (+) BM. [...] Signed: Crispin Aranda PA-C 09/24/2016 Team pager: [phone] after 5pm [facility] Section of Cardiac Surgery * Leonor Henson, ROBOTIC WELD TECHNICIAN - 09/23/2016 10:48 AM EST Cardiac Surgery Progress Note: ID: [id number] s/p AVR, patch aortoplasty POD#2. PMH of [...] Gas) No results found for: PHART, PO2ART, VOI3FBB Assessment/Plan: s/p AVR, patch aortoplasty POD#2. PMH [...] Surgeon on rounds. Signed: Leonor Henson APRN [facility] Section of Cardiac Surgery Date: 09/23/2016 * Nico Palacios PA - 09/22/2016 9:56 AM EST Cardiac Surgery Progress Note: ID: [id number] s/p AVR, patch aortoplasty POD#1. PMH of [...] NT, ND, soft. Ext: Moves all extremities. [place], well perfused. Incisions: C/D/I Tubes/Lines/Drains: PIV, leanna, [...] Attending Surgeon on rounds. Signed: EKATERINA KIM [facility] Section of Cardiac Surgery Date: 09/22/2016 * [...] AVR for severe aortic stenosis. ?? Mrs. Thakcer is someone who I have met in [...] with outpatient services Lalitha Cohen SPTA Pager: [phone] Inpatient Physical Therapy Patient status, treatment interventions, and goals discussed with student. I am in agreement with all details and associated flowsheet rows as documented and was present for all aspects of the patient treatment session. Nerykatrina Jaramillo, [facility] Pager [phone] Problem: Acute Rehab Services Goal & Intervention Plan Goal: Bed Mobility Goal Stand Alone Therapy Goal Outcome: Ongoing (Interventions Implemented as Appropriate) 09/22/16 16109/25/16 09 Bed Mobility Goal Bed Mobility Goal, Time to Achieve 4 days -- Bed Mobility Goal, Activity Type scoot/bridge;supine to sit/sit to supine -- Bed Mobility Goal, [place] Level independent -- Bed Mobility Goal, Additional [...] Achieve 4 days -- Gait Training Goal, [place] Level independent -- Gait Training Goal, Distance [...] assist, home with home health Lalitha Cohen [facility] Pager: [phone] Inpatient Physical Therapy Patient status, treatment interventions, and goals discussed with student. I am in agreement with all details and associated flowsheet rows as documented and was present for all aspects of the patient treatment session. Nery Jaramillo, [facility] Pager [phone] Problem: Acute Rehab Services Goal & Intervention Plan Goal: Bed Mobility Goal Stand Alone Therapy Goal Outcome: Ongoing (Interventions Implemented as Appropriate) 09/22/16 16109/23/16 1412 Bed Mobility Goal Bed Mobility Goal, Time to Achieve 4 days -- Bed Mobility Goal, Activity Type scoot/bridge;supine to sit/sit to supine -- Bed Mobility Goal, [place] Level independent -- Bed Mobility Goal, Additional [...] Achieve 4 days -- Gait Training Goal, [place] Level independent -- Gait Training Goal, Distance [...] days -- Transfer Training Goal, Activity Type fdd-qg-wovey/snmfh-kq-lxv;jqc-qs-vifxn/imokj-wo-tot -- Transfer Train Goal, [place] Level independent -- Transfer Training Goal, Additional Goal abides sternal precautions -- Transfer Training Goal, Outcome -- goal met * Consult Note - Jana Crenshaw RN - 09/23/2016 9:41 AM EST [facility] CARDIAC REHABILITATION Purnima Thacker was seen today regarding participation in the outpatient Phase 2 Cardiac Rehabilitation at [facility]. The patient agrees to a referral [...] and ADLs]: Room near unit station, call dhoerty in reach, bed in lowest position Surveillance [...] Another Service: (cardiac rehab) NICOLE HERNANDEZ, PT Pager:[phone] Inpatient Physical Therapy Problem: Acute Rehab Services Goal & Intervention Plan Goal: Bed Mobility Goal Stand Alone Therapy Goal Outcome: Ongoing (Interventions Implemented as Appropriate) 09/22/16 1611 Bed Mobility Goal Bed Mobility Goal, Time to Achieve 4 days Bed Mobility Goal, Activity Type scoot/bridge;supine to sit/sit to supine Bed Mobility Goal, [place] Level independent Bed Mobility Goal, Additional Goal able to abide sternal precautions during transfers Goal: Gait Training Goal Stand Alone Therapy Goal Outcome: Ongoing (Interventions Implemented as Appropriate) 09/22/16 1611 Gait Training Goal Gait Training Goal, Date Established 09/22/16 Gait Training Goal, Time to Achieve 4 days Gait Training Goal, [place] Level independent Gait Training Goal, Distance to Achieve ascend and descends 2 steps independently Goal: Goal Transfer Training Stand Alone Therapy Goal Outcome: Ongoing (Interventions Implemented as Appropriate) 09/22/16 1611 Goal Transfer Training Transfer Training Goal, Time to Achieve 4 days Transfer Training Goal, Activity Type znu-tw-ayjcl/umgcz-qi-xxw;ean-fw-xdxct/uqhey-ti-vly Transfer Train Goal, [place] Level independent Transfer Training Goal, Additional Goal [...] of completing AD's at home, chooses her epipgg-yp-xfd, Martha Thacker (home) for her [facility], 2nd choice in friend, Nitesh Leroy [place], [place] Current Coping/Education/Information Needs: patient sitting up [...] who live close by, [place], and her ixjzlf-nc-iur Martha Thacker who she has chosen to be her DPOAH. Also has a friend Nitesh Leroy who lives in [place], [place], also her DPOAH choice. Behavioral Health History: none on file in [facility] Substance Use/Abuse: none on file in [facility] Other Pertinent/Service Specific Information: none Health/Prescription Coverage: Primary Insurance: [employer] Secondary Insurance: none Prescription Coverage: yes, per patient no issues Preferred Pharmacy: ?? Other: none Primary Care Provider: Deborah Quiroga, ROBOTIC WELD TECHNICIAN [phone] Patient/Caregiver Goals of Treatment: per medical team recommendations at discharge for CT surgery Potential Needs for Transition of Care: Rehab/SNF: TBD Home Health: TBD DME: no Dialysis: no Community Resources: non3 Transportation: ride home with a friend Other: none Anticipated Barriers to Discharge/Special Considerations: none anticipated at this time Plan: patient will need VNA services at discharge. The patient/u.s. representative has been provided a list of Home Health Agencies/DME vendors which servetheir preferred geographic area. A letter describing our affiliations was reviewed with them and they were educated about their right to choose where referrals are placed. Patient requests referral to: [facility]. PHONE: [phone] FAX: [phone] Expected date of discharge: Fri/Sat? CM called VNA to confirm referral, talked with VALDO Bunn/intake who stated she was familiar w/patient & would monitor her progress through curaspan. Referral routed to the Plastic Fixture Builder for matching with agency/vendor and to provide any required information. A member of the Care Management team will continue to monitor progress, follow for continuity of care and assist with transition of care planning. Amanda Moreno RN Pager: [phone] * Op Note - Alirio Esparza MD - 09/21/2016 12:53 PM EST 09/23/2016 Purnima Thacker 1955 [id number] Preoperative Diagnosis: Symptomatic aortic stenosis Postoperative Diagnosis: Symptomatic aortic stenosis Procedure: Aortic valve replacement: Bovine Pericardial 25 mm Surgeon: Alirio Esparza M.D. Director Search: Philip BALL Anesthesia: General endotracheal anesthesia Drains: [...] Operative Note Patient Name: Purnima Thacker : [id number] MR#: [id number] Case Date: 09/21/2016 Surgeon: Surgeon(s) and Role: * Alirio Esparza MD - Primary * Nico Palacios PA - Physician Director Search Preoperative diagnosis: Postoperative diagnosis: Procedure(s) (LRB): @REPLACE [...] PM EDT Office Visit Dermatology at [place] [address] [facility] [address] [place] [address] Marek Bonilla MD [address], [place] [address] Scheduled Orders Name Type Priority Associated Diagnoses [...] IMPLANTABLE DEVICES SCAN 09/26/2016 12:00 AM EST BLOW DOWN OPERATOR SCAN 09/26/2016 12:00 AM EST POTASSIUM Routine [...] SCAN EXT O RDR/RSLT * SCAN DOC: BLOW DOWN OPERATOR (09/26/2016 12:00 AM EST) Anatomical Region Laterality Modality Other Narrative 09/26/2016 12:00 AM EST Ordered by an unspecified provider. Scanning Provider MEDIA MGR SCAN EXT O RDR/RSLT * Potassium (09/25/2016 4:32 AM EST) Pathologist [facility] Potassium 4.4 3.5 - 5.0 mmol/L [place] [...] ORDERABLE S [facility] [place] [address] * (ABNORMAL) Differential, Automated (09/24/2016 9:56 AM EST) [facility] Neutrophil % 76.8 % [facility] Neutrophil Absolute 7.79(H) 1.70 - 6.10 x10(3)/mc L [facility] Lymph % 11.1 % [facility] Lymphocytes Abs 1.1 0.9 - 3.2 x10(3)/mc L [facility] Monocyte % 8.5 % [facility] Monocyte Abs 0.9 0.3 - 0.9 x10(3)/mc L [facility] Eos % 0.5 % [facility] Eosinophils Abs 0.0 0.0 - 0.4 x10(3)/mc L [facility] Basophil % 0.2 % [facility] Baso Absolute 0.0 0.0 - 0.1 x10(3)/mc L [facility] Immature Gran % 2.90 % [facility] Comment: Immature granulocytes(IG's)percentage and absolute count will include metamyelocytes, myelocytes, and promyelocytes. Blood smears from CBCs yielding IG's will be scanned manually for concordance. If this scan disagrees with the automated IG or if promyelocytes are noted, a manual differential will be performed. Immature Gran Absolute 0.29(H) 0.00 - 0.04 x10(3)/mc L [facility] Blood specimen (specimen) 09/24/2016 9:56 AM EST 09/24/2016 10:04 AM EST Narrative Resulting Agency Comment Spec In Lab Alirio Esparza MD HEMATOLOGY ORDERABL ES [facility] [place] [address] * (ABNORMAL) Hemogram (09/24/2016 9:56 AM EST) White Blood Cell 10.1(H) 4.0 - 9.5 x10(3)/mc L [facility] Red Blood Cell 2.87(L) 4.00 - 5.21 x10(6)/mc L [facility] Hemoglobin 9.4(L) 11.7 - 15.5 gm/dL [facility] Hematocrit 28.3(L) 35.7 - 45.8 % [facility] Mean Cell Volume 98.6(H) 82.6 - 94.4 fL [facility] Mean Cell Hemoglobin 32.8(H) 27.1 - 32.0 pg [facility] Mean Cell Hemoglobin Concentration 33.2 31.7 - 35.0 gm/dL [facility] Platelet 141(L) 145 - 357 x10(3)/mc L [facility] RDW Standard Deviation 45.0 37.0 - 46.0 fL [facility] RDW coefficient of variation 12.6 11.5 - 14.1 % [facility] Mean Platelet Volume 9.4 7.6 - 12.9 fL [facility] NRBC% auto 1.1 % [facility] NRBC Absolute 0.110(H) 0.000 - 0.000 x10(3)/mc L [facility] Blood specimen (specimen) 09/24/2016 9:56 AM EST 09/24/2016 10:04 AM EST Narrative Resulting Agency Comment Spec In Lab Alirio Esparza MD HEMATOLOGY ORDERABL ES [facility] [place] [address] * (ABNORMAL) Basic Metabolic Panel (non-fasting) (09/24/2016 9:56 AM EST) Glucose 111 65 - 199 mg/dL [facility] Comment:Diabetes: >=200 mg/d L plus symptoms Blood Urea Nitrogen 23(H) 8 - 18 mg/dL [facility] Comment:result rechecked-ART Creatinine 0.89 0.70 - 1.20 mg/dL [facility] Comment: Please note that the pediatric reference intervals supplied above were not validated at [facility]. Results from pediatric patients should be interpreted [...] 107 mmol/L [facility] Carbon Dioxide 26 22 - 31 mmol/L [facility] Anion Gap 14 5 - 15 mmol/L [facility] Calcium 9.1 8.5 - 10.5 mg/dL [facility] Est Glomerular Filtration [...] the following links into your internet browser. [email or web address] [email or web address] Blood specimen (specimen) 09/24/2016 9:56 AM EST 09/24/2016 10:04 AM EST Narrative Resulting Agency Comment Spec In Lab Alirio Esparza MD CHEMISTRY ORDERABLE S [facility] [place] [address] * XR Chest PA & Lateral (Generic) [...] CHEMISTRY ORDERABLE S Performing Organization Address [facility] Co de Phone Number [facility] [place] [address] * POCT Glucose (09/22/2016 8:17 AM EST) Glucose, POC 131 65 - 199 mg/dL [facility] Comment: Supplemental ranges: <140 mg/dL before meals <180 mg/dL all other times of the day Blood specimen (specimen) 09/22/2016 8:17 AM EST 09/22/2016 8:17 AM EST Alirio Esparza MD POINT OF CARE TEST ORDERABLES Performing Organization Address City/[facility]/ZIP Co de Phone Number [facility] [place] [address] * POCT Glucose (09/22/2016 4:01 AM EST) Glucose, POC 135 65 - 199 mg/dL [facility] Comment: Supplemental ranges: <140 mg/dL before meals <180 mg/dL all other times of the day Blood specimen (specimen) 09/22/2016 4:01 AM EST 09/22/2016 4:01 AM EST Alirio Esparza MD POINT OF CARE TEST ORDERABLES [facility] [place] [address] * Scan, Peripheral Blood (09/22/2016 4:00 AM EST) Plat estimate Normal [facility] RBC Morphology Abnormal [facility] Macrocyte 1-5 /HPF [facility] Plat, Giant Less than 1 /HPF [facility] Blood specimen (specimen) 09/22/2016 4:00 AM EST 09/22/2016 4:34 AM EST Narrative Resulting Agency Comment Spec In Lab Alirio Esparza MD HEMATOLOGY ORDERABL ES Performing Organization Address [facility] Co de Phone Number [facility] [place] [address] * Electrolytes panel (09/22/2016 4:00 AM EST) Pathologist [facility] Sodium 145 135 - 145 mmol/L [place] [...] 107 mmol/L [facility] Carbon Dioxide 24 22 - 31 mmol/L [facility] Anion Gap 14 5 - 15 mmol/L [facility] Blood specimen (specimen) Venous Draw / Unknown 09/22/2016 4:00 AM EST 09/22/2016 4:34 AM EST Narrative Resulting Agency Comment Spec In Lab Alirio Esparza MD CHEMISTRY ORDERABLE S Performing Organization Address [facility] Co de Phone Number [facility] [place] [address] * (ABNORMAL) Differential, Automated (09/22/2016 4:00 AM EST) Pathologist [facility] Neutrophil % 70.9 % [facility] Neutrophil Absolute 5.33 1.70 - 6.10 x10(3)/[facility] Lymph % 9.1 % [facility] Lymphocytes Abs 0.7(L) 0.9 - 3.2 x10(3)/[facility] Monocyte % 18.0 % [facility] Monocyte Abs 1.4(H) 0.3 - 0.9 x10(3)/[facility] Eos % 0.0 % [facility] Eosinophils Abs 0.0 0.0 - 0.4 x10(3)/[facility] Basophil % 0.1 % [facility] Baso Absolute 0.0 0.0 - 0.1 x10(3)/[facility] Immature Gran % 1.90 % [facility] Comment: Immature granulocytes(IG's)percentage and absolute count will include metamyelocytes, myelocytes, and promyelocytes. Blood smears from CBCs yielding IG's will be scanned manually for concordance. If this scan disagrees with the automated IG or if promyelocytes are noted, a manual differential will be performed. Immature Gran Absolute 0.14(H) 0.00 - 0.04 x10(3)/[facility] Blood specimen (specimen) 09/22/2016 4:00 AM EST 09/22/2016 4:34 AM EST Narrative Resulting Agency Comment Spec In Lab Alirio Esparza MD HEMATOLOGY ORDERABL ES [facility] [place] [address] * (ABNORMAL) Hemogram (09/22/2016 4:00 AM EST) White Blood Cell 7.5 4.0 - 9.5 x10(3)/[facility] Red Blood Cell 2.93(L) 4.00 - 5.21 x10(6)/[facility] Hemoglobin 9.2(L) 11.7 - 15.5 gm/dL [facility] Hematocrit 28.0(L) 35.7 - 45.8 % [facility] Mean Cell Volume 95.6(H) 82.6 - 94.4 fL [facility] Mean Cell Hemoglobin 31.4 27.1 - 32.0 pg [facility] Mean Cell Hemoglobin Concentration 32.9 31.7 - 35.0 gm/dL [facility] Platelet 161 145 - 357 x10(3)/mc L [facility] RDW Standard Deviation 44.0 37.0 - 46.0 fL [facility] RDW coefficient of variation 12.6 11.5 - 14.1 % [facility] Mean Platelet Volume 9.3 7.6 - 12.9 fL [facility] NRBC% auto 0.3 % [facility] NRBC Absolute 0.020(H) 0.000 - 0.000 x10(3)/mc L [facility] Blood specimen (specimen) 09/22/2016 4:00 AM EST 09/22/2016 4:34 AM EST Narrative Resulting Agency Comment Spec In Lab Alirio Esparza MD HEMATOLOGY ORDERABL ES [facility] [place] [address] * (ABNORMAL) Cardiac Enzymes (09/22/2016 4:00 AM EST) Troponin-T 0.13(H) <=0.03 ng/mL [facility] Comment: 0.03 ng/mL: Represents the 99th percentile upper reference limit for normals. >0.03 ng/mL: Elevated cardiac troponin T level indicative of myocardial damage. Diagnosis of acute, evolving or recent [place] requires a typical rise and gradual fall [...] Creatine Kinase 338(H) 0 - 160 unit/L [facility] Blood specimen (specimen) 09/22/2016 4:00 AM EST 09/22/2016 4:34 AM EST Narrative Resulting Agency Comment Spec In Lab Alirio Esparza MD CHEMISTRY ORDERABLE S Performing Organization Address City/State/[facility] Co de Phone Number [facility] [place] [address] * (ABNORMAL) Glucose, fasting (09/22/2016 4:00 AM [...] MD CHEMISTRY ORDERABLE S Performing Organization Address City/[facility]/ZIP Co de Phone Number [facility] [place] [address] * (ABNORMAL) Creatinine (09/22/2016 4:00 AM EST) Creatinine 0.69(L) 0.70 - 1.20 mg/dL [facility] Comment: Please note that the pediatric reference intervals supplied above were not validated at [facility]. Results from pediatric patients should be interpreted in conjunction to the patient's age, height and muscle mass. Est Glomerular Filtration Rate >60 >=60 [place] [...] the following links into your internet browser. [email or web address] Blood specimen (specimen) 09/22/2016 4:00 AM EST 09/22/2016 4:34 AM EST Narrative Resulting Agency Comment Spec In Lab Alirio Esparza MD CHEMISTRY ORDERABLE S Performing Organization Address [facility]/ZIP Co de Phone Number [facility] [place] [address] * BUN (09/22/2016 4:00 AM EST) Blood Urea Nitrogen 10 8 - 18 mg/dL [facility] Blood specimen (specimen) 09/22/2016 4:00 AM EST 09/22/2016 4:34 AM EST Narrative Resulting Agency Comment Spec In Lab Alirio Esparza MD CHEMISTRY ORDERABLE S Performing Organization Address City/[facility]/ZIP Co de Phone Number [facility] [place] [address] * POCT Glucose (09/21/2016 9:59 PM EST) Glucose, POC 146 65 - 199 mg/dL [facility] Comment: Supplemental ranges: <140 mg/dL before meals <180 mg/dL all other times of the day Blood specimen (specimen) 09/21/2016 9:59 PM EST 09/21/2016 9:59 PM EST Alirio Esparza MD POINT OF CARE TEST ORDERABLES [facility] [place] [address] * POCT Glucose (09/21/2016 7:26 PM EST) Glucose, POC 152 65 - 199 mg/dL [facility] Comment: Supplemental ranges: <140 mg/dL before meals <180 mg/dL all other times of the day Blood specimen (specimen) 09/21/2016 7:26 PM EST 09/21/2016 7:26 PM EST Alirio Esparza MD POINT OF CARE TEST ORDERABLES [facility] [place] [address] * POCT Glucose (09/21/2016 6:00 PM EST) Glucose, POC 146 65 - 199 mg/dL [facility] Comment: Supplemental ranges: <140 mg/dL before meals <180 mg/dL all other times of the day Blood specimen (specimen) 09/21/2016 6:00 PM EST 09/21/2016 6:00 PM EST Alirio Esparza MD POINT OF CARE TEST ORDERABLES [facility] [place] [address] * (ABNORMAL) BLOOD GAS 2 ARTERIAL (09/21/2016 4:42 PM EST) pH, Arterial 7.35(L) 7.35 - 7.45 [facility] PCO2, Arterial 48(H) 35 - 45 mmHg [facility] PO2, Arterial 108(H) 85 - 104 mmHg [facility] Bicarbonate, Arterial 26.0 20.0 - 26.0 mmol/L [facility] Base Excess, Arterial 0.5 -3.0 - 3.0 mmol/L [facility] Hgb Blood Gas 10.4(L) 11.7 - 15.5 gm/dL [facility] Oxyhemoglobin, Arterial 96.2 94.0 - 97.0 % [facility] Carboxyhemoglob in, Arterial 0.0 % [facility] Comment: Nonsmokers: 0.5-1.5% COHB Smokers: Variable, but usually less than 10% Toxic: 20-30% COHB Lethal: Greater than 60% COHB Methemoglobin, Arterial 0.7 <=1.5 % [facility] Na Whole Blood 139 [...] [facility] PF Ratio Art 270 [facility] Blood specimen (specimen) 09/21/2016 4:42 PM EST 09/21/2016 4:42 PM EST Alirio Esparza MD POINT OF CARE TEST ORDERABLES Performing Organization Address [facility] Co de Phone Number [facility] [place] [address] * POCT Glucose (09/21/2016 4:07 PM EST) Glucose, POC 150 65 - 199 mg/dL [facility] Comment: Supplemental ranges: <140 mg/dL before meals <180 mg/dL all other times of the day Blood specimen (specimen) 09/21/2016 4:07 PM EST 09/21/2016 4:07 PM EST Alirio Esparza MD POINT OF CARE TEST ORDERABLES Performing Organization Address [facility] Co de Phone Number [facility] [place] [address] * (ABNORMAL) Hemoglobin (09/21/2016 4:05 PM EST) Hemoglobin 9.9(L) 11.7 - 15.5 gm/dL [facility] Blood specimen (specimen) 09/21/2016 4:05 PM EST 09/21/2016 4:20 PM EST Narrative Resulting Agency Comment Spec In Lab Alirio Esparza MD HEMATOLOGY ORDERABL ES Performing Organization Address [facility] Co de Phone Number [facility] [place] [address] * Potassium (09/21/2016 4:05 PM EST) Potassium [...] CHEMISTRY ORDERABLE S Performing Organization Address [facility] Co de Phone Number [facility] [place] [address] * POCT Glucose (09/21/2016 2:52 PM EST) Glucose, POC 117 65 - 199 mg/dL [facility] Comment: Supplemental ranges: <140 mg/dL before meals <180 mg/dL all other times of the day Blood specimen (specimen) 09/21/2016 2:52 PM EST 09/21/2016 2:52 PM EST Alirio Esparza MD POINT OF CARE TEST ORDERABLES Performing Organization Address [facility] Phone Number [facility] [place] [address] * POCT Glucose (09/21/2016 1:51 PM EST) Glucose, POC 108 65 - 199 mg/dL [facility] Comment: Supplemental ranges: <140 mg/dL before meals <180 mg/dL all other times of the day Blood specimen (specimen) 09/21/2016 1:51 PM EST 09/21/2016 1:51 PM EST Alirio Esparza MD POINT OF CARE TEST ORDERABLES Performing Organization Address [facility] Co de Phone Number [facility] [place] [address] * POCT Glucose (09/21/2016 12:54 PM EST) Glucose, POC 128 65 - 199 mg/dL [facility] Comment: Supplemental ranges: <140 mg/dL before meals <180 mg/dL all other times of the day Blood specimen (specimen) 09/21/2016 12:54 PM EST 09/21/2016 12:54 PM EST Alirio Esparza MD POINT OF CARE TEST ORDERABLES Performing Organization Address City/[facility]/ZIP Co de Phone Number [facility] [place] [address] * EKG 12 Lead (09/21/2016 12:26 PM EST) Ventricular rate 87 BPM MUSE SYSTEM Atrial Rate 87 BPM MUSE SYSTEM P-R Interval 256 ms MUSE SYSTEM QRS Duration 90 ms MUSE SYSTEM Q-T Interval 406 ms MUSE SYSTEM QTC Calculated (Bezet) 488 ms MUSE SYSTEM Calculated P [place] 24 degrees MUSE SYSTEM Calculated R [place] 21 degrees MUSE SYSTEM Calculated T [place] -5 degrees MUSE SYSTEM INTERPRETATION Sinus rhythm with 1st degree A-V block Nonspecific T wave abnormality Prolonged QT Abnormal ECG When compared with ECG of 19-MAY-2016 11:43, AR interval has increased T wave inversion now evident in inferior and midanterior leads Confirmed by MD ESTES EDWARD ([id number]) on 09/21/2016 1:40:59 PM MUSE SYSTEM 09/21/2016 12:2 6 PM EST 09/21/2016 1:40 PM EST Alirio Esparza MD ECG ORDERABLES Performing Organization Address [facility] Co de Phone Number MUSE [...] course of the esophagus and below the [id number]. There is a right IJ PA catheter [...] the course of theesophagus and below the [id number]. There is a right IJ PA catheter [...] EST) pH, Arterial 7.41 7.35 - 7.45 [facility] PCO2, Arterial 42 35 - 45 mmHg [facility] PO2, Arterial 356(H) 85 - 104 mmHg [facility] Bicarbonate, Arterial 26.2(H) 20.0 - 26.0 mmol/L [facility] Base Excess, Arterial 1.6 -3.0 - 3.0 mmol/L [facility] Hgb Blood Gas 10.7(L) 11.7 - 15.5 gm/dL [facility] Oxyhemoglobin, Arterial 98.1(H) 94.0 - 97.0 % [facility] Carboxyhemoglob in, Arterial 0.3 % [facility] Comment: Nonsmokers: 0.5-1.5% COHB Smokers: Variable, but usually less than 10% Toxic: 20-30% COHB Lethal: Greater than 60% COHB Methemoglobin, Arterial 0.8 <=1.5 % [facility] Na Whole Blood 140 [...] [facility] PF Ratio Art 356 [facility] Blood specimen (specimen) 09/21/2016 12:20 PM EST 09/21/2016 12:20 PM EST Alirio Esparza MD POINT OF CARE TEST ORDERABLES Performing Organization Address City/State/[facility] Co de Phone Number [facility] [place] [address] * (ABNORMAL) BLOOD GAS 2 ARTERIAL (09/21/2016 10:54 AM EST) pH, Arterial 7.43 7.35 - 7.45 [facility] PCO2, Arterial 40 35 - 45 mmHg [facility] PO2, Arterial 297(H) 85 - 104 mmHg [facility] Bicarbonate, Arterial 26.0 20.0 - 26.0 mmol/L [facility] Base Excess, Arterial 1.6 -3.0 - 3.0 mmol/L [facility] Hgb Blood Gas 8.6(L) 11.7 - 15.5 gm/dL [facility] Oxyhemoglobin, Arterial 98.6(H) 94.0 - 97.0 % [facility] Carboxyhemoglob in, Arterial 0.5 % [facility] Comment: Nonsmokers: 0.5-1.5% COHB Smokers: Variable, but usually less than 10% Toxic: 20-30% COHB Lethal: Greater than 60% COHB Methemoglobin, Arterial 0.3 <=1.5 % [facility] Na Whole Blood 134(L) [...] [facility] PF Ratio Art 313 [facility] Temp Art 36.7 Celsius [facility] Blood specimen (specimen) 09/21/2016 10:54 AM EST 09/21/2016 10:54 AM EST Alirio Esparza MD POINT OF CARE TEST ORDERABLES Performing Organization Address City/State/[facility] Co de Phone Number [facility] [place] [address] * Thrombin time (09/21/2016 10:50 AM EST) [...] HEMATOLOGY ORDERABLE S Performing Organization Address [facility] Co de Phone Number [facility] [place] [address] * Fibrinogen (09/21/2016 10:50 AM EST) Fibrinogen [...] HEMATOLOGY ORDERABLE S Performing Organization Address [facility] Co de Phone Number [facility] [place] [address] * APTT (09/21/2016 10:50 AM EST) Partial Thromboplastin Time 32 25 - 35 sec [facility] Comment: The recommended therapeutic range for full dose, unfractionated heparin at [facility] is 80 ? 114 seconds. The use of the anti-Xa (heparin) level rather than the PTT is recommended for monitoring anticoagulation intensity in critically ill patients receiving unfractionated heparin by continuous IV infusion. Blood specimen (specimen) 09/21/2016 10:50 AM EST 09/21/2016 10:56 AM EST Narrative Resulting Agency Comment Spec In Lab Luis Enrique Quarles MD HEMATOLOGY ORDERABLE S Performing Organization Address City/[facility] Co de Phone Number [facility] [place] [address] * (ABNORMAL) Prothrombin Time (09/21/2016 10:50 AM EST) Prothrombin Time 18.7(H) 12.0 - 15.0 sec [facility] International Normalization Ratio 1.5(H) 0.9 - 1.1 [facility] Blood specimen (specimen) 09/21/2016 10:50 AM EST 09/21/2016 10:56 AM EST Narrative Resulting Agency Comment Spec In Lab Luis Enrique Quarles MD HEMATOLOGY ORDERABLE S Performing Organization Address City/State/[facility] Co de Phone Number [facility] [place] [address] * (ABNORMAL) Hemogram (09/21/2016 10:50 AM EST) Pathologist [facility] White Blood Cell 14.7(H) 4.0 - 9.5 x10(3)/mc L [facility] Red Blood Cell 2.40(L) 4.00 - 5.21 x10(6)/mc L [facility] Hemoglobin 7.9(L) 11.7 - 15.5 gm/dL [facility] Hematocrit 23.2(L) 35.7 - 45.8 % [facility] Comment: This result has been called to MICHELLE GRIGSBY by ASHU MORENO on 09 21 2016 at 1102, and has been read back. Mean Cell Volume 96.7(H) 82.6 - 94.4 fL [facility] Mean Cell Hemoglobin 32.9(H) 27.1 - 32.0 pg [facility] Mean Cell Hemoglobin Concentration 34.1 31.7 - 35.0 gm/dL [facility] Platelet 117(L) 145 - 357 x10(3)/mc L [facility] RDW Standard Deviation 42.6 37.0 - 46.0 [facility] RDW coefficient of variation 12.1 11.5 - 14.1 % [facility] Mean Platelet Volume 9.2 7.6 - 12.9 [facility] NRBC% auto 0.1 % [facility] NRBC Absolute 0.020(H) 0.000 - 0.000 x10(3)/mc L [facility] Blood specimen (specimen) 09/21/2016 10:50 AM EST 09/21/2016 10:56 AM EST Narrative Resulting Agency Comment Spec In Lab Luis Enrique Quarles MD HEMATOLOGY ORDERABLE S Performing Organization Address [facility] Co de Phone Number [facility] [place] [address] * Prepare Platelets, Apheresis (09/21/2016 10:30 AM EST) Pathologist [facility] Dispensed? Yes [facility] Blood specimen (specimen) 09/21/2016 10:30 AM EST 09/21/2016 10:28 AM EST Alirio Esparza MD BLOOD BANK PRODUCT ORDERABLES Performing Organization Address [facility] Co nh Phone Number [facility] [place] [address] * (ABNORMAL) BLOOD GAS 2 ARTERIAL (09/21/2016 10:05 AM EST) pH, Arterial 7.33(L) 7.35 - 7.45 [facility] PCO2, Arterial 54(Critic al) 35 - 45 mmHg [facility] Comment:Noted by instrumentation and control technician. PO2, Arterial 218(H) 85 - 104 mmHg [facility] Bicarbonate, Arterial 27.9(H) 20.0 - 26.0 mmol/L [facility] Base Excess, Arterial 2.0 -3.0 - 3.0 mmol/L [facility] Hgb Blood Gas 8.6(L) 11.7 - 15.5 gm/dL [facility] Oxyhemoglobin, Arterial 98.4(H) 94.0 - 97.0 % [facility] Carboxyhemoglo bin, Arterial 0.5 % [facility] Comment: Nonsmokers: 0.5-1.5% COHB Smokers: Variable, but usually less than 10% Toxic: 20-30% COHB Lethal: Greater than 60% COHB Methemoglobin, Arterial 0.3 <=1.5 % [facility] Na Whole Blood 129(L) 135 - 145 mmol/L [facility] K Whole Blood 6.2(Criti gabrielle) 3.5 - 5.0 mmol/L [facility] Comment: Noted by instrumentation and control technician. Please note: Patients with WBC >100,000 [...] TEST ORDERABLES [facility] [place] [address] * (ABNORMAL) BLOOD GAS 2 ARTERIAL (09/21/2016 9:44 AM EST) pH, Arterial 7.22(Criti gabrielle) 7.35 - 7.45 [facility] Comment:Noted by instrumentation and control technician. PCO2, Arterial 70(Critica l) 35 - 45 mmHg [facility] Comment:Noted by instrumentation and control technician. PO2, Arterial 224(H) 85 - 104 mmHg [facility] Bicarbonate, Arterial 27.8(H) 20.0 - 26.0 mmol/L [facility] Base Excess, Arterial 0.0 -3.0 - 3.0 mmol/L [facility] Hgb Blood Gas 8.7(L) 11.7 - 15.5 gm/dL [facility] Oxyhemoglobin, Arterial 98.5(H) 94.0 - 97.0 % [facility] Carboxyhemoglob in, Arterial 0.6 % [facility] Comment: Nonsmokers: 0.5-1.5% COHB Smokers: Variable, but usually less than 10% Toxic: 20-30% COHB Lethal: Greater than 60% COHB Methemoglobin, Arterial 0.3 <=1.5 % [facility] Na Whole Blood 131(L) [...] TEST ORDERABLES [facility] [place] [address] * (ABNORMAL) Hemoglobin (09/21/2016 9:42 AM EST) Hemoglobin 7.2(L) 11.7 - 15.5 gm/dL [facility] Blood specimen (specimen) 09/21/2016 9:42 AM EST 09/21/2016 9:51 AM EST Narrative Resulting Agency Comment Spec In Lab Alirio Esparza MD HEMATOLOGY ORDERABL ES Performing Organization Address [facility]/ZIP Co de Phone Number [facility] [place] [address] * Platelet count (09/21/2016 9:42 AM EST) Platelet 159 145 - 357 x10(3)/mc L [facility] Immature Plt % 1.6 0.0 - 7.4 % [facility] Comment: Limitation of the Immature Platelet Fraction (IPF)-May be less reliable when the platelet count is less than 88b519/uL due to statistical imprecision. The IPF value [...] in a decreased state of production. References: [employer] The Clinical Value of the Immature Platelet Fraction (IPF) in Cell Recovery Document Number [id number] 12/2010 [employer] The Role of the Immature Platelet Fraction (IPF) in the Differential Diagnosis of Thrombocytopenia, Document [id number] V012/11/13 P012/13 Blood specimen (specimen) 09/21/2016 9:42 AM EST 09/21/2016 9:51 AM EST Narrative Resulting Agency Comment Spec In Lab Alirio Esparza MD HEMATOLOGY ORDERABL ES Performing Organization Address [facility] Co de Phone Number [facility] [place] [address] * (ABNORMAL) Hematocrit (09/21/2016 9:42 AM EST) [...] Address [facility] de Phone Number [facility] [place] [address] * Fibrinogen (09/21/2016 9:42 AM EST) Fibrinogen [...] HEMATOLOGY ORDERABL ES Performing Organization Address [facility] Co de Phone Number [facility] [place] [address] * (ABNORMAL) BLOOD GAS 2 ARTERIAL (09/21/2016 9:10 AM EST) pH, Arterial 7.36 7.35 - 7.45 [facility] PCO2, Arterial 48(H) 35 - 45 mmHg [facility] PO2, Arterial 295(H) 85 - 104 mmHg [facility] Bicarbonate, Arterial 26.0 20.0 - 26.0 mmol/L [facility] Base Excess, Arterial 0.5 -3.0 - 3.0 mmol/L [facility] Hgb Blood Gas 8.0(L) 11.7 - 15.5 gm/dL [facility] Oxyhemoglobin, Arterial 98.3(H) 94.0 - 97.0 % [facility] Carboxyhemoglob in, Arterial 1.0 % [facility] Comment: Nonsmokers: 0.5-1.5% COHB Smokers: Variable, but usually less than 10% Toxic: 20-30% COHB Lethal: Greater than 60% COHB Methemoglobin, Arterial 0.3 <=1.5 % [facility] Na Whole Blood 135 [...] OF CARE TEST ORDERABLES Performing Organization Address City/[facility] Co de Phone Number [facility] [place] [address] * Surgical Pathology Report (09/21/2016 9:09 AM EST) Final Diagnosis [id number] ?Location: 3T The signing pathologist has (i) [...] AM EST [facility] AORTIC STRUCTURE / Unknown 09/21/2016 9:09 AM EST 09/21/2016 9:09 AM EST Alirio Esparza MD PATHOLOGY/CYTOLOGY ORDERABLES Performing Organization Address [facility]/ZIP Co de Phone Number [facility] [place] [address] * Specimen to Pathology (surgical or derm) (09/21/2016 9:09 AM EST) AP Specimen 09/21/2016 9:09 AM EST 09/21/2016 9:09 AM EST Narrative [facility] - 09/21/2016 9:09 AM EST Specimen requisition ordered. ??Separate Pathology report to follow Alirio Esparza MD PATHOLOGY/CYTOLOGY ORDERABLES [facility] [place] [address] * (ABNORMAL) BLOOD GAS 2 ARTERIAL (09/21/2016 8:50 AM EST) pH, Arterial 7.41 7.35 - 7.45 [facility] PCO2, Arterial 33(L) 35 - 45 mmHg [facility] PO2, Arterial 348(H) 85 - 104 mmHg [facility] Bicarbonate, Arterial 20.6 20.0 - 26.0 mmol/L [facility] Base Excess, Arterial -4.1(L) -3.0 - 3.0 mmol/L [facility] Hgb Blood Gas 9.5(L) 11.7 - 15.5 gm/dL [facility] Oxyhemoglobin, Arterial 98.8(H) 94.0 - 97.0 % [facility] Carboxyhemoglob in, Arterial 0.3 % [facility] Comment: Nonsmokers: 0.5-1.5% COHB Smokers: Variable, but usually less than 10% Toxic: 20-30% COHB Lethal: Greater than 60% COHB Methemoglobin, Arterial 0.3 <=1.5 % [facility] Na Whole Blood 137 [...] TEST ORDERABLES [facility] [place] [address] * (ABNORMAL) BLOOD GAS 2 ARTERIAL (09/21/2016 8:18 AM EST) pH, Arterial 7.42 7.35 - 7.45 [facility] PCO2, Arterial 36 35 - 45 mmHg [facility] PO2, Arterial 283(H) 85 - 104 mmHg [facility] Bicarbonate, Arterial 22.8 20.0 - 26.0 mmol/L [facility] Base Excess, Arterial -2.0 -3.0 - 3.0 mmol/L [facility] Hgb Blood Gas 12.6 11.7 - 15.5 gm/dL [facility] Oxyhemoglobin, Arterial 99.0(H) 94.0 - 97.0 % [facility] Carboxyhemoglob in, Arterial 0.6 % [facility] Comment: Nonsmokers: 0.5-1.5% COHB Smokers: Variable, but usually less than 10% Toxic: 20-30% COHB Lethal: Greater than 60% COHB Methemoglobin, Arterial 0.0 <=1.5 % [facility] Na Whole Blood 144 [...] [facility] PF Ratio Art 298 [facility] Temp Art 35.6 Celsius [facility] Blood specimen (specimen) 09/21/2016 8:18 AM EST 09/21/2016 8:18 AM EST Alirio Esparza MD POINT OF CARE TEST ORDERABLES [facility] [place] [address] * Prepare RBC (09/21/2016 7:05 AM EST) Dispensed? Yes [facility] Blood specimen (specimen) 09/21/2016 7:05 AM EST 09/21/2016 7:02 AM EST Alirio Esparza MD BLOOD BANK PRODUCT ORDERABLES [facility] [place] [address] * POCT Glucose (09/21/2016 6:42 AM EST) Glucose, POC 104 65 - 199 mg/dL [facility] Comment: Supplemental ranges: <140 mg/dL before meals <180 mg/dL all other times of the day Blood specimen (specimen) 09/21/2016 6:42 AM EST 09/21/2016 6:42 AM EST Alirio Esparza MD POINT OF CARE TEST ORDERABLES [facility] [place] [place] [address] documented in this encounter Visit Diagnoses Diagnosis [...] dose on Wed09/21/16 at 1230, Until Discontinued, Combined Locks teeth, Routine Given 09/25/2016 9:40 AM EST [...] if phenyleprine and/or vasopressin ineffective.Call pager # [phone] if initiated., Routine Rate/Dose Change 09/21/2016 2:27 [...] 2.0 L/min/M2. Maximum volume 2 L. Call lighthouse keeper for additional fluid orders: pager #[phone]. Rate/Dose Verify 09/22/2016 10:00 AM EST 10 [...] at 0600)1600 (Due - Provider: Kendall Martínez [facility]) aspirin chewable tablet 81 mg(Linked [...] dose on Wed09/21/16 at 1230, Until Discontinued, Combined Locks teeth, Routine 0900 (Not Given - Provider: [...] Routine documented in this encounter Care Teams International Student Counselor Relationship Specialty Start Date End Date Deborah Quiroga APRN PCP - General Family Medicine 03/24/16 02/04/23 documented as of this encounter
--- OUTSIDE RECORDS SUMMARY | 2024-03-28 14:31 | XMS_ITS | Encounter Summary ---
[facility] [place] [address] Care Team Providers Care Clinical Exercise Specialist Name Role Phone Junaid, Deborah Shields APRN Primary Care Provider [phone] Encounter Details Date Type Department Care Team (Latest Contact Info) Description 08/18/2016 4:40 PM EST Laboratory [place] [phone] Aortic valve stenosis, unspecified etiology Social History [...] 4:15 PM EDT Office Visit Dermatology at [place] [address] [facility] [place] [phone] Marek Bonilla MD [address] [facility], [place] [address] documented as of this encounter Procedures Procedure Name Priority Date/Time Associated Diagnosis Comments ABORH RECHECK STATUS Routine 08/18/2016 4:50 PM EST TYPE AND SCREEN, SDP (FUTURE SURGERY, [facility] SAME DAY PROGRAM ONLY) Routine [...] 4:50 PM EST) ABORH Type Recheck Completed [facility] Blood specimen (specimen) 08/18/2016 4:50 PM EST 08/18/2016 5:27 PM EST Narrative Resulting Agency Comment Spec In Lab Alirio Esparza MD BLOOD BANK LAB BETH SHANNONROMERO [facility] [place] [address] * Antibody screen (08/18/2016 4:50 PM EST) Ab Screen Interp Negative [facility] Expires at 2359 on: 09/24/2016 [facility] Comment: Corrected from 09/17/16 12:00 [Unknown] on 09/09/16 02:32 by Shireen Treviño Blood specimen (specimen) 08/18/2016 4:50 PM EST 08/18/2016 5:11 PM EST Narrative Resulting Agency Comment Spec In Lab Alirio Esparza MD BLOOD BANK LAB ORDSylvia ORTEGAROMERO [facility] [place] [address] * ABO/Rh Typing (08/18/2016 4:50 PM EST) ABORH Type B Pos [facility] Blood specimen (specimen) 08/18/2016 4:50 PM EST 08/18/2016 5:11 PM EST Narrative Resulting Agency Comment Spec In Lab Alirio Esparza MD BLOOD BANK LAB BETH ALEJO Lidia Organization Address City/State/ZIP Co de Phone Number [facility] [place] [address] * Basic Metabolic Panel (non-fasting) (08/18/2016 4:50 PM EST) Glucose 82 65 - 199 mg/dL [facility] Comment:Diabetes: >=200 mg/d L plus symptoms Blood Urea Nitrogen 12 8 - 18 mg/dL [facility] Creatinine 0.87 0.70 - 1.20 mg/dL [facility] Comment: Please note that the pediatric reference intervals supplied above were not validated at [facility]. Results from pediatric patients should be interpreted in conjunction to the patient's age, height and muscle mass. Sodium 142 135 - 145 mmol/L [facility] Potassium 3.8 3.5 - 5.0 mmol/L [facility] Comment: Please note: ??Patients with WBC >100,000 may have falsely elevated Potassium levels. ??For accurate Potassium quantification in these patients send serum separator tube (gold top) for subsequent determinations. ??Contact the Clinical Chemistry Laboratory if there are any questions. Chloride 102 98 - 107 mmol/L [facility] Carbon Dioxide 26 22 - 31 mmol/L [facility] Anion Gap 14 5 - 15 mmol/L [facility] Calcium 9.7 8.5 - 10.5 mg/dL [facility] Est Glomerular Filtration Rate >60 [...] the following links into your internet browser. [email or web address] [email or web address] Blood specimen (specimen) 08/18/2016 4:50 PM EST 08/18/2016 5:03 PM EST Narrative Resulting Agency Comment Spec In Lab Alirio Esparza MD CHEMISTRY ORDERABLE S Performing Organization Address City/State/[facility] Co de Phone Number [facility] [place] [address] documented in this encounter Visit Diagnoses Diagnosis Aortic valve stenosis, unspecified etiology documented in this encounter Care Teams Clinical Exercise Specialist Relationship Specialty Start Date End Date Deborah Quiroga, FLAT KNITTER PCP - General Family Medicine 03/24/16 02/04/23 documented as of this encounter
--- OUTSIDE RECORDS SUMMARY | 2024-03-28 14:32 | XMS_ITS | Encounter Summary ---
Author Organization [facility] Address [facility] [place] [address] Care Team Providers Care Storm Chaser Name Role Phone Deborah Quiroga APRN Primary Care Provider [phone] Encounter Details Date Type Department Care Team (Latest Contact Info) Description 05/19/2016 11:52 AM EDT - 05/19/2016 11:59 PM EDT Hospital Encounter XRay at [address] [place] [address] Alirio Esparza MD Nonrheumatic aortic valve stenosis [...] 4:15 PM EDT Office Visit Dermatology at [place] [address] [place] [address] Marek Bonilla MD [address], [place] [address] documented as of this encounter Procedures Procedure [...] disorders documented in this encounter Care Teams Storm Chaser Relationship Specialty Start Date End Date Deborah Quiroga, CORNETIST PCP - General Family Medicine 03/24/16 02/04/23 documented as of this encounter
--- OUTSIDE RECORDS SUMMARY | 2024-03-28 14:32 | XMS_ITS | Encounter Summary ---
[place] [address] Care Team Providers Care Regional Account Director Name Role Phone Deborah Quiroga ANURAG Primary Care Provider [phone] Reason for Visit * Reason Onset Date Comments Pre Procedure Call 06/18/2016 Encounter Details Date Type Department Care Team (Late st Contact Info) Description 06/18/2016 Telephone Hematology [place] [phone] Alexandrea Greenwood RN Pre Procedure Call Social [...] 4:15 PM EDT Office Visit Dermatology at [place] [address] [facility] [place] [phone] Marek Bonilla MD [address], [place] [address] documented as of this encounter Visit Diagnoses Not on filedocumented in this encounter Care Teams Regional Account Director Relationship Specialty Start Date End Date Deborah Quiroga APRN PCP - General Family Medicine 03/24/16 02/04/23 documented as of this encounter
--- OUTSIDE RECORDS SUMMARY | 2024-03-28 14:32 | XMS_ITS | Encounter Summary ---
Author Organization [facility] Address [facility] [place] [address] Care Team Providers Care Central Supply Tech Name Role Phone Mitchell Wilkes MD Primary Care Provider [phone] Encounter Details Date Type Department Care Team (Late st Contact Info) Description 01/19/2014 Orders Only Cardiology at [address] [address] Chele Randolph, PA [facility] [place] [address] Cardiomyopathy (Primary Dx) Social History Tobacco Use [...] 4:15 PM EDT Office Visit Dermatology at [place] [address] [place] [address] Marek Bonilla MD [address], [place] [address] documented as of this encounter Procedures Procedure [...] cardiomyopathies documented in this encounter Care Teams Central Supply Tech Relationship Specialty Start Date End Date Mitchell Wilkes MD [facility] PCP - General 06/24/10 01/19/14 documented as of this encounter
--- OUTSIDE RECORDS SUMMARY | 2024-03-28 14:32 | XMS_ITS | Encounter Summary ---
Author Organization [facility] Address [facility] [place] [address] Care Team Providers Care Yardage Control Operator Forming Name Role Phone Junaid, Deborah Shields APRN Primary Care Provider [phone] Reason for Visit * Auth/Cert Specialty Diagnoses / Procedures Referred By Crispin t Referred To Contact Diagnoses AVS Procedures CARDIAC CATHETERIZATION Referral ID Status Reason Start Date Expiration Date Visits Re quested Visits Authorized [id number] 1 1 Encounter Details Date Type Department Care Team (Late st Contact Info) Description 06/03/2016 7:30 AM EDT - 06/03/2016 8:30 AM EDT Surgery [place] [phone] Mario Alberto Escobedo MD [facility] [place] [address] CARDIAC CATHETERIZATION Social History Tobacco Use Types [...] by your doctor, do not take any dsog-ggv-[id number] medicinesor herbal preparations without first discussing this with your doctor or pharmacist. There is the possibility of side effects and interactions when these are combined. Follow Up Care Who to call with questions or problems If there are any questions or problems that you think might be related to your cardiac cath or angioplasty, contact the coordinate measuring machine programmer monument letterer by calling [facility] at . * Patient Instructions* Felicia Corrigan - 06/03/2016 9:33 AM EDT Cardiology Instructions Call your doctor if: Chest pain, dyspnea, pain or swelling in legs occurs. If you have non-emergent questions between now and the time of your follow up appointments: -During 8am-5pm Wednesday through Wednesday call [phone] to speak with a nurse in the cardiology clinic -All other times call [phone] and ask to speak to the conference producer monument letterer. MEDICATIONS - restart your spironolactone, discontinue prior [...] Appointments: Primary care provider: Cardiology: Deborah Hahn, ORTHODONTIC TECHNICIAN [phone] Follow up as planned or as needed. Dr. Esparza [phone] Other follow-up appointment: Hematology - Dr. Mario [...] 4:15 PM EDT Office Visit Dermatology at [place] [address] [facility] [place] [address] Marek Bonilla MD [address], [place] [address] documented as of this encounter Procedures Procedure [...] Tube HOLD (06/03/2016 11:45 AM EDT) [facility] Green Hold Sample in lab. [facility] Blood specimen (specimen) Venous Draw / Unknown 06/03/2016 11:45 AM EDT 06/03/2016 12:12 PM EDT Mario Alberto Escobedo MD CHEMISTRY ORDERABLES Performing Organization Address [facility] de Phone Number [facility] [place] [address] * Methylmalonic acid, serum (06/03/2016 11:45 AM EDT) [facility] Methylmalonic Acid (NOVEMBER) 0.21 <=0.40 nmol/mL [facility] Comment: Test Performed by: [place] [address] Elevator Examiner And Adjuster: Raymond Chaudhry II, M.D., Ph.D. Blood specimen (specimen) 06/03/2016 11:45 AM EDT 06/03/2016 1:57 PM EDT Narrative Resulting Agency Comment Spec In Lab Mario Alberto Escobedo MD LAB SEND OUT ORDERAB LES Performing Organization Address [facility] Co de Phone Number [facility] [place] [address] * Granulocyte Antibody (06/03/2016 11:45 AM EDT) [facility] Granulocyte Ab (NOVEMBER) Negative Not Applicable [facility] Comment: ADDITIONAL INFORMATION Method: Immunofluorescent Assay Performing Laboratory CLIA# [id number] This test was developed and its performance characteristics determined by [facility] in a manner consistent with CLIA requirements. This test has not been cleared or approved by the U.S. Food and Drug Administration. Test Performed by: [facility] - [address] [address] Elevator Examiner And Adjuster: Raymond Chaudhry II, M.D., Ph.D. Blood specimen (specimen) 06/03/2016 11:45 AM EDT 06/03/2016 1:57 PM EDT Narrative Resulting Agency Comment Spec In Lab Mario Alberto Escobedo MD LAB SEND OUT ORDERAB LES Performing Organization Address [facility] Co de Phone Number [facility] [place] [address] * TSH (06/03/2016 11:45 AM EDT) Thyroid Stimulating Hormone 2.18 0.27 - 4.20 mcIU/mL [facility] Blood specimen (specimen) 06/03/2016 11:45 AM EDT 06/03/2016 12:11 PM EDT Narrative Resulting Agency Comment Spec In Lab Mario Alberto Escobedo MD CHEMISTRY ORDERABLES Performing Organization Address [facility] Co de Phone Number [facility] [place] [address] * Homocysteine Total, Plasma (06/03/2016 11:45 AM EDT) Homocystine 9 <=15 mcmol/L [facility] Blood specimen (specimen) 06/03/2016 11:45 AM EDT 06/03/2016 12:11 PM EDT Narrative Resulting Agency Comment Spec In Lab Mario Alberto Escobedo MD CHEMISTRY ORDERABLES Performing Organization Address [facility] Co de Phone Number [facility] [place] [address] * Folate, serum (06/03/2016 11:45 AM EDT) Folate >20.0 4.8 - 24.2 ng/mL [facility] Blood specimen (specimen) 06/03/2016 11:45 AM EDT 06/03/2016 12:04 PM EDT Narrative Resulting Agency Comment Spec In Lab Mario Alberto Escobedo MD CHEMISTRY ORDERABLES Performing Organization Address [facility] Co de Phone Number [facility] [place] [address] * (ABNORMAL) Sedimentation rate (06/03/2016 11:45 AM EDT) Sedimentation Rate Automated 41(H) 0 - 20 mm/hr [facility] Blood specimen (specimen) 06/03/2016 11:45 AM EDT 06/03/2016 12:04 PM EDT Narrative Resulting Agency Comment Spec In Lab Mario Alberto Escobedo MD HEMATOLOGY ORDERABLE S Performing Organization Address [facility] Co de Phone Number [facility] [place] [address] * Lactate Dehydrogenase (06/03/2016 11:45 AM EDT) Lactate Dehydrogenase 164 110 - 220 unit/L [facility] Blood specimen (specimen) 06/03/2016 11:45 AM EDT 06/03/2016 12:11 PM EDT Narrative Resulting Agency Comment Spec In Lab Mario Alberto Escobedo MD CHEMISTRY ORDERABLES Performing Organization Address [facility] Co de Phone Number [facility] [place] [address] * Comprehensive metabolic panel (non-fasting) (06/03/2016 11:45 AM EDT) Glucose 90 65 - 199 mg/dL [facility] Comment:Diabetes: >=200 mg/d L plus symptoms Blood Urea Nitrogen 11 8 - 18 mg/dL [facility] Creatinine 0.83 0.70 - 1.20 mg/dL [facility] Comment: Please note that the pediatric reference intervals supplied above were not validated at [facility]. Results from pediatric patients should [...] - 107 mmol/L [facility] Carbon Dioxide 25 22 - 31 mmol/L [facility] Anion Gap 14 5 - 15 mmol/L [facility] Calcium 9.2 8.5 - 10.5 mg/dL [facility] Protein, Total 7.0 6.1 - 8.0 gm/dL [facility] Albumin 4.0 3.2 - 5.2 gm/dL [facility] Aspartate Aminotransferase 17 0 - 30 unit/L [facility] Alanine Aminotransferase 9 0 - 30 unit/L [facility] Alkaline Phosphatase 81 40 - 104 unit/L [facility] Bilirubin, Total 0.4 0.2 - 1.3 mg/dL [facility] Bilirubin, Direct 0.1 0.0 - 0.3 mg/dL [facility] Est Glomerular Filtration Rate >60 [...] following links into your internet browser. [email or web address] Blood specimen (specimen) 06/03/2016:45 AM EDT 06/03/2016 12:11 PM EDT Narrative Resulting Agency Comment Spec In Lab Mario Alberto Escobedo MD CHEMISTRY ORDERABLES [facility] [place] [address] documented in this encounter Visit Diagnoses Diagnosis [...] Hernandez) documented in this encounter Care Teams Yardage Control Operator Forming Relationship Specialty Start Date End Date Deborah Quiroga APRN PCP - General Family Medicine 03/24/16 02/04/23 documented as of this encounter
--- OUTSIDE RECORDS SUMMARY | 2024-03-28 14:32 | XMS_ITS | Encounter Summary ---
Author Organization [facility] Address [facility] [place] [address] Care Team Providers Care Tune Up Mechanic Name Role Phone Deborah Quiroga ANURAG Primary Care Provider [phone] Encounter Details Date Type Department Care Team (Late st Contact Info) Description 05/22/2016 Orders Only Cardiology at [address] [address] Chele Randolph PA [facility] [place] [address] Aortic valve stenosis, unspecified etiology Social History [...] 4:15 PM EDT Office Visit Dermatology at [place] [address] [facility] [place] [phone] Marek Bonilla MD [address] [place] [address] documented as of this encounter Procedures Procedure Name Priority Date/Time Associated Diagnosis Comments CARDIAC CATHETERIZATION Routine 06/03/20 16 9:13 AM EDT Aortic valve stenosis, unspecified etiology documented in this encounter Results * CARDIAC CATHETERIZATION (06/03/2016 9:13 AM EDT) Anatomical Region Laterality Modality Other Narrative 06/03/2016 10:13 AM EDT ?[facility] ? Cardiac Catheterization/Intervention Report ? Patient Name: Kirstie, Purnima M. ? Procedure Date: 06/03/2016 ? A #: [id number] ? Primary Physician: Nitesh Escobedo ? Case #: [id number] ? File Name: [id number] ? Catheterization Order Number: [id number] ? [facility] ? Final Report [place], [place] ? Patient Name: ? Purnima M. Kirstie ? ID#: ?[id number] ? : ?1955 ? Procedure Date: ? [...] no symptom, no angina (w/i 14 days). [place] ?Cardiovascular Society angina class was 0. This [...] Procedure Note Nitesh Escobedo MD - 09/21/2016 [facility] Cardiac Catheterization/Intervention Report Patient Name: Purnima Thacker Procedure Date: 06/03/2016 A #: [id number] Primary Physician: Nitesh Escobedo Case #: [id number] File Name: [id number] Catheterization Order Number: [id number] [facility] FinalReport [place], [place] Patient Name: Purnima Thacker ID#:[id number] :1955 Procedure Date: June 03, 2016 Case [...] with: no symptom, no angina (w/i 14 days).[place] Cardiovascular Society angina class was 0. This [...] etiology documented in this encounter Care Teams Tune Up Mechanic Relationship Specialty Start Date End Date Deborah Quiroga APRN PCP - General Family Medicine 03/24/16 02/04/23 documented as of this encounter
--- OUTSIDE RECORDS SUMMARY | 2024-03-28 14:32 | XMS_ITS | Encounter Summary ---
Author Organization [facility] [place] [address] Care Team Providers Care Assistant Merchandiser Name Role Phone Deborah Quiroga APRN Primary Care Provider [phone] Encounter Details Date Type Department Care Team (Late st Contact Info) Description 06/09/2016 Orders Only Hematology [place] [address] Nitesh Pina Jr., MD [facility] [address] HEMATOLOGY [place] [address] Cyclical neutropenia Social History Tobacco Use Types [...] 4:15 PM EDT Office Visit Dermatology at [place] [address] [facility] [place] [phone] Marek Bonilla MD [address] [facility], [place] [address] documented as of this encounter Results * Immunophenotyping Flow Cytometry (06/09/2016 4:53 PM EST) Immunophenotyping Flow See Comment [facility] Comment: When completed by the Pathologist, the Flow Cytometry Report ([id number]) will display under the Pathology Results section within [facility]. Specimen of unknown material (specimen) 06/09/2016 4:53 PM EST 06/09/2016 5:00 PM EST Narrative Resulting Agency Comment Spec In Lab Nitesh Pina Jr., MD HEMATOLOGY ORDERABLE S Performing Organization Address City/State/[facility] Co de Phone Number [facility] [place] [address] documented in this encounter Visit Diagnoses Diagnosis Cyclical neutropenia Cyclic neutropenia documented in this encounter Care Teams Assistant Merchandiser Relationship Specialty Start Date End Date Deborah Quiroga, GIFT SHOP ASSISTANT PCP - General Family Medicine 03/24/16 02/04/23 documented as of this encounter
--- OUTSIDE RECORDS SUMMARY | 2024-03-28 14:32 | XMS_ITS | Encounter Summary ---
Author Organization [facility] Address [facility] [place] [address] Care Team Providers Care Strategic Communications Manager Name Role Phone Danni Laird APRN Primary Care Provider [phone] Encounter Details Date Type Department Care Team (Late st Contact Info) Description 01/23/2014 Orders Only Cardiology at [address] [address] Lee Kincaid MD [facility] [place] [address] SOB (shortness of breath) (Primary Dx) Social [...] 4:15 PM EDT Office Visit Dermatology at [place] [address] [facility] [place] [phone] Marek Bonilla MD [address] [facility], TODD A DERMATOLOGY [place], [place] [phone] documented as of this encounter Results * Echocardiogram Transthoracic(Leb) (01/23/2014 3:17 PM EDT) EF 50 HEARTLAB SYSTEM Anatomical Region Laterality Modality Other 01/23/2014 Narrative 01/23/2014 4:35 PM EDT Procedure: ? Transthoracic Echocardiogram Patient: ? ANDREW Mejias ?(Age): 1955(58) Med Rec#: ?[id number] ? Sex: ?F ? Site Loc: ?[facility] ? Ht / Wt: ??158(cm)/93(kg) Pt. Loc: ? Adult Floor ?BSA: ?2.02 Study Date: ?01/23/2014 ? Pt. Type: Inpatient Tape: ? Referring: Lee Kincaid ([id number]) Referring: ANNALISA Physiological Chemist: Miguel Beverly Diagnosis:CPT Code(s): ??Echo Full (13614), ??Spectral Doppler (92670), Color Doppler (93517), Indication(s): ??Aortic stenosis Rhythm: Sinus HR ?BP [...] ? Mid-Inferior ?Hypokinetic ? Mid-Inferoseptal ?Hypokinetic ? [place]-Septal ? Hypokinetic ? [place]-Anterior ? Hypokinetic ? [place]-Lateral ?Hypokinetic ? [place]-Inferior ? Hypokinetic ? [place]-Tip ?Hypokinetic ? Chambers ?Value ?Units (Range) ? [...] Images reviewed and interpretation verified [facility] Cardiac Ultrasound Laboratory Procedure Note Lee Kincaid MD - 01/23/2014 Procedure: Transthoracic Echocardiogram Patient: ANDREW Mejias (Age): 1955(58) Med Rec#: [id number] Sex: F Site Loc: [facility] Ht / Wt: 158(cm)/93(kg) Pt. Loc: Adult Floor BSA: 2.02 Study Date: 01/23/2014 Pt. Type: Inpatient Tape: Referring: Lee Kincaid ([id number]) Referring: ANNALISA Physiological Chemist: Miguel Beverly Diagnosis:CPT Code(s): Echo Full (75622), Spectral Doppler (50026), Color Doppler (59256), Indication(s): Aortic stenosis Rhythm: Sinus HR BP [...] Hypokinetic Mid-Posterolateral Hypokinetic Mid-Inferior Hypokinetic Mid-Inferoseptal Hypokinetic Palo-Septal Hypokinetic Palo-Anterior Hypokinetic Palo-Lateral Hypokinetic Palo-Inferior Hypokinetic Palo-Tip Hypokinetic Chambers Value Units (Range) IVSd 2D [...] Images reviewed and interpretation verified [facility] Cardiac Ultrasound Laboratory Lee Kincaid MD ECHO ORDERABLES documented in this encounter Visit Diagnoses Diagnosis SOB (shortness of breath)- Primary Shortness of breath documented in this encounter Care Teams Strategic Communications Manager Relationship Specialty Start Date End Date Danni Laird APRN [address] [place] [address] PCP - General 01/23/14 11/11/14 documented as of this encounter
--- OUTSIDE RECORDS SUMMARY | 2024-03-28 14:32 | XMS_ITS | Encounter Summary ---
Author Organization Formerly [facility] Address [facility] [address] Care Team Providers Care Joiner Name Role Phone EitanMagnusDanni ANURAG Primary Care Provider Encounter Details Date Type Department Care Team (Latest Contact Info) Description 01/23/2014 7:45 AM EDT - 01/23/2014 5:50 PM EDT Hospital En[place] [address] Alan Jacobson MD [facility] [place] [address] Cardiomyopathy; SOB (shortness of breath) Discharge Disposition: [...] by your doctor, do not take any yavm-wer-eynhzls medicines or herbal preparations without first discussing this with your doctor or pharmacist. There is the possibility of side effect and interactions when these are combined. Follow up Care Who to Call with Questions or Problems If there are any questions or problems that you think might be related to your cardiac cath or angioplasty, contact the signals intelligence superintendent facility operations manager by calling [facility] [...] 4:15 PM EDT Office Visit Dermatology at [place] [address] [facility] [place] [address] Marek Bonilla MD [address], [place] [address] documented as of this encounter Procedures Procedure [...] ANDREW ECHOLS M ?(Age): 1955(58) Med Rec#: ?[id number] ? Sex: ?F ? Site Loc: ?[facility] ? Ht / Wt: ??158(cm)/93(kg) Pt. Loc: ? Adult Floor ?BSA: ?2.02 Study Date: ?01/23/2014 ? Pt. Type: Inpatient Tape: ? Referring: Lee Kincaid ([id number]) Referring: ANNALISA Digital Experience Manager: Miguel Beverly Diagnosis:CPT Code(s): ??Echo Full (60652), ??Spectral Doppler (44267), Color Doppler (12165), Indication(s): ??Aortic stenosis Rhythm: Sinus HR ?BP [...] ? Mid-Inferior ?Hypokinetic ? Mid-Inferoseptal ?Hypokinetic ? [place]-Septal ? Hypokinetic ? [place]-Anterior ? Hypokinetic ? [place]-Lateral ?Hypokinetic ? [place]-Inferior ? Hypokinetic ? [place]-Tip ?Hypokinetic ? Chambers ?Value ?Units (Range) ? [...] Patient: ANDREW Mejias (Age): 1955(58) Med Rec#: [id number] Sex: F Site Loc: [facility] Ht / Wt: 158(cm)/93(kg) Pt. Loc: Adult Floor BSA: 2.02 Study Date: 01/23/2014 Pt. Type: Inpatient Tape: Referring: Lee Kincaid ([id number]) Referring: ANNALISA Digital Experience Manager: Miguel Beverly Diagnosis:CPT Code(s): Echo Full (13813), Spectral Doppler (63970), Color Doppler (66413), Indication(s): Aortic stenosis Rhythm: Sinus HR BP [...] Hypokinetic Mid-Posterolateral Hypokinetic Mid-Inferior Hypokinetic Mid-Inferoseptal Hypokinetic [place]-Septal Hypokinetic [place]-Anterior Hypokinetic [place]-Lateral Hypokinetic [place]-Inferior Hypokinetic [place]-Tip Hypokinetic Chambers Value Units (Range) IVSd 2D 1.1 cm LVIDd 2D 4.4 cm PWd 2D 1.1 cm LVIDs 2D 3.4 cm LVFS 2D 22 % Ao root 2.8 cm (2.1 to 3.6) Asc Ao 2.8 cm (2 to 3.5) Aortic Valve Value Units (Range) AV grad P 25 mmHg AV grad M 15 mmHg GEOVANNA(ewro) 1.1 cm2 (2 to 4) DOI 0.35 [...] er: Nitesh Stern RN)1224 (Given - Provider: Nietsh Stern RN) documented in this encounter Care Teams Joiner Relationship Specialty Start Date End Date Danni Laird APRN [address] [place] [address] PCP - General 01/23/14 11/11/14 documented as of this encounter
--- OUTSIDE RECORDS SUMMARY | 2024-03-28 14:32 | XMS_ITS | Encounter Summary ---
[place] [address] Care Team Providers Care Big Data Developer Name Role Phone Mitchell Wilkes MD Primary Care Provider [phone] Reason for Visit * Reason Onset Date Comments Other 01/18/2014 Encounter Details Date Type Department Care Team (Late st Contact Info) Description 01/18/2014 Telephone Cardiology at [address] [address] Jesusita Garces Other Social History Tobacco Use Types Packs/Day Years Used Date Smoking Tobacco: Never Assessed Sex and Gender Information Value Date Recorded Sex Assigned at Not on file Gender Identity Not on file Sexual Orientation Not on file documented as of this encounter Miscellaneous Notes * Telephone Encounter - Jesusita aGrces - 01/18/2014 10:25 AM EDT Name: Purnima [...] PM EDT Office Visit Dermatology at [address] [address] Marek Bonilla MD [address] [place] [address] RD, [place] [address] documented as of this encounter Visit Diagnoses Not on filedocumented in this encounter Care Teams Big Data Developer Relationship Specialty Start Date End Date Mitchell Wilkes MD [facility] PCP - General 06/24/10 01/19/14 documented as of this encounter
--- OUTSIDE RECORDS SUMMARY | 2024-03-28 14:32 | XMS_ITS | Encounter Summary ---
Author Organization [facility] [place] [address] Care Team Providers Care Ux Designer Name Role Phone Junaid, Deborah Shields APRN Primary Care Provider [phone] Encounter Details Date Type Department Care Team (Late st Contact Info) Description 05/19/2016 10:00 AM EDT Office [place] [phone] Alirio Esparza MD Nonrheumatic aortic valve stenosis [...] EDT Office Visit Dermatology at [place] [address] [facility] [place] [address] Marek Bonilla MD [address] [facility], [place] [address] documented as of this encounter Results * [...] (Bezet) 448 ms MUSE SYSTEM Calculated P [place] 37 degrees MUSE SYSTEM Calculated R [place] 31 degrees MUSE SYSTEM Calculated T [place] 25 degrees MUSE SYSTEM INTERPRETATION Normal sinus rhythm Normal ECG No previous ECGs available Confirmed by MD Becca, Deangelo ([id number]) on 05/19/2016 5:23:33 PM MUSE SYSTEM 05/19/2016 11:4 3 AM EDT 05/19/2016 5:23 PM EDT Alirio Esparza MD ECG ORDERABLES MUSE SYSTEM * Basic Metabolic Panel (non-fasting) (05/19/2016 11:32 AM EDT) Pathologist [facility] Glucose 86 65 - 199 mg/dL [facility] Comment:Diabetes: >=200 mg/d L plus symptoms Blood Urea Nitrogen 13 8 - 18 mg/dL [facility] Creatinine 0.95 0.70 - 1.20 mg/dL [facility] Comment: Please note that the pediatric reference intervals supplied above were not validated at [facility]. Results from pediatric [...] LABORATORY Est Glomerular Filtration Rate 60 >=60 [facility] Comment: This estimated [...] the following links into your internet browser. http://doUdeal/DHnkdep [email or web address]/DHMCnkf Blood specimen (specimen) 05/19/2016 11:32 AM EDT 05/19/2016 11:41 AM EDT Narrative Resulting Agency Comment Spec In Lab Alirio Esparza MD CHEMISTRY ORDERABLE S Performing Organization Address City/State/[facility] Co de Phone Number [facility] [place] [address] documented in this encounter Visit Diagnoses Diagnosis Nonrheumatic aortic valve stenosis Aortic valve disorders Nonrheumatic aortic valve stenosis Aortic valve disorders documented in this encounter Care Teams Ux Designer Relationship Specialty Start Date End Date Deborah Quiroga APRN PCP - General Family Medicine 03/24/16 02/04/23 documented as of this encounter
--- OUTSIDE RECORDS SUMMARY | 2024-03-28 14:32 | XMS_ITS | Encounter Summary ---
[place] [address] Care Team Providers Care State Pilot Name Role Phone Jerel Sofia Garcia APRN Primary Care Provider [phone] Encounter Details Date Type Department Care Team (Late st Contact Info) Description 11/12/2014 8:10 AM EDT - 11/12/2014 11:59 PM EDT Hospital [place] [phone] CLINIC, DR ABE Burrell, Antelmo Porter MD [address] [place] [address] Discharge Disposition: Home Social History Tobacco Use [...] 4:15 PM EDT Office Visit Dermatology at [place] [address] [facility] [address] [place] [address] Marek Bonilla MD [address], [place] [address] documented as of this encounter Procedures Procedure [...] mLs documented in this encounter Care Teams State Pilot Relationship Specialty Start Date End Date Sofia Beltrán APRN [address] [place] [address] PCP - General 11/12/14 03/23/16 documented as of this encounter
--- OUTSIDE RECORDS SUMMARY | 2024-03-28 14:32 | XMS_ITS | Encounter Summary ---
Author Organization [facility] [place] [address] Care Team Providers Care Spring Inspector Name Role Phone Junaid Deborah Shields APRN Primary Care Provider [phone] Encounter Details Date Type Department Care Team (Latest Contact Info) Description 05/19/2016 11:20 AM EDT Laboratory [place] [phone] Nonrheumatic aortic valve stenosis Social History Tobacco [...] PM EDT Office Visit Dermatology at [place] [address] [place] [phone] Marek Bonilla MD [address] [facility] [address] [place] [address] documented as of this encounter Procedures Procedure Name Priority Date/Time Associated Diagnosis Comments SCAN, PERIPHERAL BLOOD Routine 05/19/2016 11:32 AM EDT HEMOGRAM Routine 05/19/2016 11:32 AM EDT Nonrheumatic aortic valve stenosis DIFFERENTIAL, AUTOMATED Routine 05/19/2016 11:32 AM EDT Nonrheumatic aortic valve stenosis TYPE AND SCREEN, SDP (FUTURE SURGERY, [facility] [...] Peripheral Blood (05/19/2016 11:32 AM EDT) Pathologist [facility] Plat estimate Normal [facility] RBC Morphology Normal [facility] Blood specimen (specimen) 05/19/2016 11:32 AM EDT 05/19/2016 11:41 AM EDT Narrative Resulting Agency Comment Spec In Lab Alirio Esparza MD HEMATOLOGY ORDERABL ES [facility] [place] [address] * (ABNORMAL) Differential, Automated (05/19/2016 11:32 AM EDT) [facility] Neutrophil % 25.9 % [facility] Neutrophil Absolute 0.42(Crit ical) 1.70 - 6.10 x10(3)/mc L [facility] Comment: This result has been called to DR ALIRIO ESPARZA by Alivia Ibarra on 05 19 2016 at 1228, and has been read back. Lymph % 59.9 % [facility] Lymphocytes Abs 1.0 0.9 - 3.2 x10(3)/mc L [facility] Monocyte % 13.0 % [facility] Monocyte Abs 0.2(L) 0.3 - 0.9 x10(3)/[facility] Eos % 0.6 % [facility] Eosinophils Abs 0.0 0.0 - 0.4 x10(3)/ L [facility] Basophil % 0.6 % [facility] Baso Absolute 0.0 0.0 - 0.1 x10(3)/[facility] Immature Gran % 0.00 % [facility] Comment: Immature granulocytes(IG's)percentage and absolute count will include metamyelocytes, myelocytes, and promyelocytes. Blood smears from CBCs yielding IG's will be scanned manually for concordance. If this scan disagrees with the automated IG or if promyelocytes are noted, a manual differential will be performed. Immature Gran Absolute 0.00 0.00 - 0.04 x10(3)/[facility] Blood specimen (specimen) 05/19/2016 11:32 AM EDT 05/19/2016 11:41 AM EDT Narrative Resulting Agency Comment Spec In Lab Alirio Esparza MD HEMATOLOGY ORDERABL ES [facility] [place] [address] * (ABNORMAL) Hemogram (05/19/2016 11:32 AM EDT) White Blood Cell 1.6(Criti gabrielle) 4.0 - 9.5 x10(3)/ L [facility] Comment: This result has been called to DR ALIRIO ESPARZA by Alivia Ibarra on 05 19 2016 at 1228, and has been read back. Red Blood Cell 3.96(L) 4.00 - 5.21 x10(6)/mc L [facility] Hemoglobin 12.5 11.7 - 15.5 gm/dL [facility] Hematocrit 37.9 35.7 - 45.8 % [facility] Mean Cell Volume 95.7(H) 82.6 - 94.4 fL [facility] Mean Cell Hemoglobin 31.6 27.1 - 32.0 pg [facility] Mean Cell Hemoglobin Concentration 33.0 31.7 - 35.0 gm/dL [facility] Platelet 227 145 - 357 x10(3)/mc L [facility] RDW Standard Deviation 40.5 37.0 - 46.0 fL [facility] RDW coefficient of variation 11.5 11.5 - 14.1 % [facility] Mean Platelet Volume 8.4 7.6 - 12.9 fL [facility] NRBC% auto 0.0 % [facility] NRBC Absolute 0.000 0.000 - 0.000 x10(3)/mc L [facility] Blood specimen (specimen) 05/19/2016 11:32 AM EDT 05/19/2016 11:41 AM EDT Narrative Resulting Agency Comment Spec In Lab Alirio Esparza MD HEMATOLOGY ORDERABL ES Performing Organization Address City/State/[facility] Co de Phone Number [facility] [place] [address] * Antibody screen (05/19/2016 11:32 AM EDT) Ab Screen Interp Negative [facility] Expires at 0063 on: 07/03/2016 [facility] Comment: Corrected from 06/11/16 12:00 [Unknown] on 06/09/16 05:51 by Bethanie Tomlinson I.. Corrected from 07/03/16 12:00 [Unknown] on 05/21/16 06:00 by Shelia Barrera Blood specimen (specimen) 05/19/2016 11:32 AM EDT 05/19/2016 11:35 AM EDT Narrative Resulting Agency Comment Spec In Lab Alirio Esparza MD BLOOD BANK LAB ORDSylvia ALEJO [facility] [place] [address] * ABO/Rh Typing (05/19/2016 11:32 AM EDT) ABORH Type B Pos [facility] Blood specimen (specimen) 05/19/2016 11:32 AM EDT 05/19/2016 11:35 AM EDT Narrative Resulting Agency Comment Spec In Lab Alirio Esparza MD BLOOD BANK LAB BETH ALEJO Performing Organization Address City/[facility]/ZIP Co de Phone Number [facility] [place] [address] * Basic Metabolic Panel (non-fasting) (05/19/2016 11:32 AM EDT) Pathologist [facility] Glucose 86 65 - 199 mg/dL [facility] Comment:Diabetes: >=200 mg/d L plus symptoms Blood Urea Nitrogen 13 8 - 18 mg/dL [facility] Creatinine 0.95 0.70 - 1.20 mg/dL [facility] Comment: Please note that the pediatric reference intervals supplied above were not validated at [facility]. Results from pediatric patients should be interpreted in conjunction to the patient's age, height and muscle mass. Sodium 140 135 - 145 mmol/L [facility] Potassium 4.3 3.5 - 5.0 mmol/L [facility] Comment: Please note: ??Patients with WBC >100,000 may have falsely elevated Potassium levels. ??For accurate Potassium quantification in these patients send serum separator tube (gold top) for subsequent determinations. ??Contact the Clinical Chemistry Laboratory if there are any questions. Chloride 101 98 - 107 mmol/L [facility] Carbon Dioxide 27 22 - 31 mmol/L [facility] Anion Gap 12 5 - 15 mmol/L [facility] Calcium 10.1 8.5 - 10.5 mg/dL [facility] Est Glomerular Filtration Rate 60 >=60 [facility] Comment: [...] the following links into your internet browser. [email or web address] [email or web address] [email or web address] [email or web address] Blood specimen (specimen) 05/19/2016 11:32 AM EDT 05/19/2016 11:41 AM EDT Narrative Resulting Agency Comment Spec In Lab Alirio Esparza MD CHEMISTRY ORDERABLE S [facility] [place] [id number] documented in this encounter Visit Diagnoses Diagnosis Nonrheumatic aortic valve stenosis Aortic valve disorders documented in this encounter Care Teams Spring Inspector Relationship Specialty Start Date End Date Deborah Quiroga APRN PCP - General Family Medicine 03/24/16 02/04/23 documented as of this encounter
--- OUTSIDE RECORDS SUMMARY | 2024-03-28 14:32 | XMS_ITS | Encounter Summary ---
Author Organization [facility] [place] [address] Care Team Providers Care Cupola Tender Helper Name Role Phone Deborah Quiroga APRN Primary Care Provider [phone] Encounter Details Date Type Department Care Team (Latest Contact Info) Description 07/10/2016 2:54 PM EST - 07/10/2016 11:59 PM EST Hospital [place] [phone] Discharge Disposition: Home Social History Tobacco Use [...] 4:15 PM EDT Office Visit Dermatology at [place] [address] [place] [address] Marek Bonilla MD [address], [place] [address] documented as of this encounter Procedures Procedure Name Priority Date/Time Associated Diagnosis Comments BONE MARROW FINAL REPORT Routine 07/10/2016 3:43 PM EST documented in this encounter Results * Bone Marrow Final Report (07/10/2016 3:43 PM EST) Final Diagnosis [id number] ?Location: [facility]W The signing pathologist has (i) examined the relevant preparation(s) for the specimen(s) and (ii) rendered or confirmed the diagnosis(es). . ? Bone Marrow Final DIAGNOSIS BONE MARROW (PERIPHERAL SMEAR, ASPIRATE SMEAR, TOUCH PREP, CLOT SECTION, CORE BIOPSY); [OSR# [id number], COLLECTED 06/23/2016, 19 SLIDES]: ?? 1. 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 Polytypic plasma cell staining, high background Lambda ?Polytypic plasma cell staining, high background Block: ? B2 (Core biopsy 2) Fixative: ?? Formalin ANTIBODY: ?? RESULT/COMMENT CD3 ? Scattered small lymphocytes and lymphoid aggregates highlighted CD20 ?Few scattered small lymphocytes stain ( ?? <CD3 in aggregates) CD138 ? Scattered plasma cells represent 3-4% of the cellularity Jarrell ? Polytypic plasma cell staining, high background Lambda ?Polytypic plasma cell staining, high background Note: The immunoperoxidase stains reported above were developed and their performance characteristics determined by [facility] Laboratories. ??They [...] CONSULTATION CASE A - 19 slides labeled [id number], collection date 06/23/2016. [id number] Report to: [facility] Surgical Pathology Department [facility], [facility], 2nd Floor [address], [place] ??[address] 07/13/2016 11:38 AM EST [facility] Consult Case 07/10/2016 3:43 PM EST 07/10/2016 3:43 PM EST Nitesh Pina Jr., MD PATHOLOGY/CYTOLOGY O RDERABLES Performing Organization Address City/State/[facility] Co de Phone Number [facility] [place] [address] documented in this encounter Visit Diagnoses Not on filedocumented in this encounter Care Teams Cupola Tender Helper Relationship Specialty Start Date End Date Deborah Quiroga, ANURAG PCP - General Family Medicine 03/24/16 02/04/23 documented as of this encounter
--- OUTSIDE RECORDS SUMMARY | 2024-03-28 14:32 | XMS_ITS | Encounter Summary ---
Author Organization [facility] Address [facility] [place] [address] Care Team Providers Care Brick Offbearer Name Role Phone Ashley Quirogazac Shields APRN Primary Care Provider [phone] [phone] Encounter Details Date Type Department Care Team (Latest Contact Info) Description 06/19/2016 - 06/19/2016 11:59 PM EST Hospital Encounter [place] [address] Nitesh Pina Jr., MD [facility] [address] [place] [address] Pain Discharge Disposition: Home Social History Tobacco [...] 4:15 PM EDT Office Visit Dermatology at [place] [address] [place] [address] Marek Bonilla MD [address], [place] [address] documented as of this encounter Procedures Procedure Name Priority Date/Time Associated Diagnosis Comments FILM LIBRARY STORAGE ONLY CT CHEST ABDOMEN PELVIS Routine 06/19/2016 12:00 AM EST Pain documented in this encounter Results * Film Library- Storage Only CT Chest Abdomen Pelvis (06/19/2016 12:00 AM EST) Narrative [facility] - 06/20/2016 8:53 AM EST This exam is for storage only and is auto-finalizing. Nitesh Pina Jr., MD IMG FILM LIBRARY ORD ERABLES [place], [place] documented in this encounter Visit Diagnoses Diagnosis Pain Generalized pain documented in this encounter Care Teams Brick Offbearer Relationship Specialty Start Date End Date Deborah Quiroga APRN PCP - General Family Medicine 03/24/16 02/04/23 documented as of this encounter
--- OUTSIDE RECORDS SUMMARY | 2024-03-28 14:32 | XMS_ITS | Encounter Summary ---
Author Organization [facility] [place] [address] Care Team Providers Care Beater Head Name Role Phone Deborah Quiroga APRN Primary Care Provider [phone] Encounter Details Date Type Department Care Team (Late st Contact Info) Description 07/31/2016 External Results [place]emat[place] [address] Alexandrea Greenwood RN Neutropenia, unspecified type Social [...] 4:15 PM EDT Office Visit Dermatology at [place] [address] [place] [phone] Marek Bonilla MD [address], [place] [address] documented as of this encounter Procedures Procedure [...] type documented in this encounter Care Teams Beater Head Relationship Specialty Start Date End Date Deborah Quiroga, MATHEMATICS FACULTY MEMBER PCP - General Family Medicine 03/24/16 02/04/23 documented as of this encounter
--- OUTSIDE RECORDS SUMMARY | 2024-03-28 14:32 | XMS_ITS | Encounter Summary ---
Author Organization [facility] [place] [address] Care Team Providers Care Security Alarm Technician Name Role Phone Junaid Deborah Shields APRN Primary Care Provider [phone] Encounter Details Date Type Department Care Team (Latest Contact Info) Description 05/19/2016 11:00 AM EDT [place] [address] Nonrheumatic aortic valve stenosis Social History Tobacco [...] 4:15 PM EDT Office Visit Dermatology at [place] [address] [place] [address] Marek Bonilla MD [address], [place] [address] documented as of this encounter Procedures Procedure [...] (Bezet) 448 ms MUSE SYSTEM Calculated P Irma 37 degrees MUSE SYSTEM Calculated R Irma 31 degrees MUSE SYSTEM Calculated T Irma 25 degrees MUSE SYSTEM INTERPRETATION Normal sinus rhythm Normal ECG No previous ECGs available Confirmed by MD Becca, Deangelo ([id number]) on 05/19/2016 5:23:33 PM MUSE SYSTEM 05/19/2016 11:4 3 AM EDT 05/19/2016 5:23 PM EDT Alirio Esparza MD ECG ORDERABLES MUSE SYSTEM documented in this encounter Visit Diagnoses Diagnosis Nonrheumatic aortic valve stenosis Aortic valve disorders documented in this encounter Care Teams Security Alarm Technician Relationship Specialty Start Date End Date Deborah Quiroga APRN PCP - General Family Medicine 03/24/16 02/04/23 documented as of this encounter
--- OUTSIDE RECORDS SUMMARY | 2024-03-28 14:32 | XMS_ITS | Encounter Summary ---
Author Organization [facility] [place] [address] Care Team Providers Care Utilities Ground Worker Name Role Phone EitanDanni ANURAG Primary Care Provider [phone] Encounter Details Date Type Department Care Team (Late st Contact Info) Description 01/22/2014 Telephone Cardiology at [address] [phone] Cynthia Arrington LPN Social History Tobacco Use [...] LPN - 01/23/2014 2:39 PM EDT This bid writer did not receive a call back [...] 4:15 PM EDT Office Visit Dermatology at [place] [address] [place] [address] Marek Bonilla MD [address], [address] [place] [address] documented as of this encounter Visit Diagnoses Not on filedocumented in this encounter Care Teams Utilities Ground Worker Relationship Specialty Start Date End Date Danni Laird APRN [address] [place] [address] PCP - General 01/23/14 11/11/14 documented as of this encounter
--- OUTSIDE RECORDS SUMMARY | 2024-03-28 14:32 | XMS_ITS | Encounter Summary ---
Author Organization [facility] Address [facility] [place] [address] Care Team Providers Care Steel Construction Worker Name Role Phone Deborah Quiroga APRN Primary Care Provider [phone] Reason for Visit * Reason Comments Schedule Office Case * Consultation (Routine) - Closed Specialty Diagnoses / Procedures Referred By Contac t Referred To Contact Hematology and Oncology Diagnoses Leukopenia Neutropenia LEUKOPENIA W/NEUTROPENIA Procedures TC PEGFILGRASTIM, 6MG, INJECTION LEUKOPENIA W/NEUTROPENIA Alirio Esparza MD [facility] [place] [address] Mario Alberto Ramos Jr., MD [facility] DR HEMATOLOGY [place] [address] Referral ID Status Reason Start Date Expiration Date V isits Requested Visits Authorized [id number] Closed Consult, Test & Treat 07/17/2016 07/17/2017 1 1 Encounter Details Date Type Department Care Team (Late st Contact Info) Description 06/09/2016 3:00 PM EST Office Visit Hematology [place] [address] Mario Alberto Ramos Jr., MD [facility] [place]ATOLOG[place] [address] Cyclical neutropenia Social History Tobacco Use Types [...] 06/09/2016 3:00 PM EST Hematology Outpatient Clinic [facility] Hematology Outpatient Consult Note CC: [...] Unknown See Comment Flow Cytometry Report Unknown [id number] ... HematoPathology: Flow Cytometry DIAGNOSIS 1. No [...] 4:15 PM EDT Office Visit Dermatology at [place] [address] [place] [address] Marek Bonilla MD [address], [place] [address] documented as of this encounter Procedures Procedure [...] (06/09/2016 4:53 PM EST) Flow Cytometry Report [id number] ?Location: The signing pathologist has (i) examined the relevant preparation(s) for the specimen(s) and (ii) rendered or confirmed the diagnosis(es). . ?Flow Cytometry DIAGNOSIS 1. ??No increased or abnormal immunophenotype T/NK/LGL or monoclonal B-cell ?? populations identified. 2. No increased blast population present (see Discussion). Electronically signed by: ??Tod UCLP, Andreina Arriaga Verified: ??06/10/2016 ?Hematopathologist DISCUSSION The [...] by the Clinical Flow Cytometry Laboratory at [facility]. It has not been cleared or [...] high complexity clinical laboratory testing. SPECIMEN PROCESSING [id number] Cells for immunophenotypic analysis were derived from [...] Alberto Ramos Jr., MD PATHOLOGY/CYTOLOGY O RDERABLES [facility] [place] [address] * Scan, Peripheral Blood (06/09/2016 4:53 PM EST) Pathologist [facility] Plat estimate Normal [facility] RBC Morphology Normal [facility] Blood specimen (specimen) 06/09/2016 4:53 PM EST 06/09/2016 5:00 PM EST Narrative Resulting Agency Comment Spec In Lab Mario Alberto Ramos Jr., MD HEMATOLOGY ORDERABLE S Performing Organization Address City/[facility]/ZIP Co de Phone Number [facility] [place] [address] * (ABNORMAL) Differential, Automated (06/09/2016 4:53 PM EST) [facility] Neutrophil % 27.7 % [facility] Neutrophil Absolute 0.48(Crit ical) 1.70 - 6.10 x10(3)/mc L [facility] Comment: Matches Previous Results.. This result has been called to NOT CALLED by Jesusita Argueta on 06 09 2016 at 1817, and has not been read back. MATCHES PREVIOUS RESULTS Lymph % 57.2 % [facility] Lymphocytes Abs 1.0 0.9 - 3.2 x10(3)/mc L [facility] Monocyte % 13.3 % [facility] Monocyte Abs 0.2(L) 0.3 - 0.9 x10(3)/mc L [facility] Eos % 0.6 % [facility] Eosinophils Abs 0.0 0.0 - 0.4 x10(3)/mc L [facility] Basophil % 1.2 % [facility] Baso Absolute 0.0 0.0 - 0.1 x10(3)/mc L [facility] [...] Absolute 0.00 0.00 - 0.04 x10(3)/mc L [facility] Blood specimen (specimen) 06/09/2016 4:53 PM EST 06/09/2016 5:00 PM EST Narrative Resulting Agency Comment Spec In Lab Mario Alberto Ramos Jr., MD HEMATOLOGY ORDERABLE S Performing Organization Address City/State/[facility] Co de Phone Number [facility] [place] [address] * (ABNORMAL) Hemogram (06/09/2016 4:53 PM EST) White Blood Cell 1.7(Criti gabrielle) 4.0 - 9.5 x10(3)/mc L [facility] Red Blood Cell 3.92(L) 4.00 - 5.21 x10(6)/mc L [facility] Hemoglobin 12.4 11.7 - 15.5 gm/dL [facility] Hematocrit 36.7 35.7 - 45.8 % [facility] Mean Cell Volume 93.6 82.6 - 94.4 fL [facility] Mean Cell Hemoglobin 31.6 27.1 - 32.0 pg [facility] Mean Cell Hemoglobin Concentration 33.8 31.7 - 35.0 gm/dL [facility] Platelet 234 145 - 357 x10(3)/mc L [facility] RDW Standard Deviation 39.8 37.0 - 46.0 fL [facility] RDW coefficient of variation 11.8 11.5 - 14.1 % [facility] Mean Platelet Volume 8.6 7.6 - 12.9 fL [facility] NRBC% auto 0.0 % [facility] NRBC Absolute 0.000 0.000 - 0.000 x10(3)/mc L [facility] Blood specimen (specimen) 06/09/2016 4:53 PM EST 06/09/2016 5:00 PM EST Narrative Resulting Agency Comment Spec In Lab Mario Alberto Ramos Jr., MD HEMATOLOGY ORDERABLE S Performing Organization Address [facility] Co de Phone Number [facility] [place] [address] * Immunophenotyping Flow Cytometry (06/09/2016 4:53 PM EST) Immunophenotyping Flow See Comment [facility] Comment: When completed by the Pathologist, the Flow Cytometry Report ([id number]) will display under the Pathology Results section within [facility]. Specimen of unknown material (specimen) 06/09/2016 4:53 PM EST 06/09/2016 5:00 PM EST Narrative Resulting Agency Comment Spec In Lab Mario Alberto Ramos Jr., MD HEMATOLOGY ORDERABLE S Performing Organization Address City/[facility] Co de Phone Number [facility] [place] [address] documented in this encounter Visit Diagnoses Diagnosis Cyclical neutropenia Cyclic neutropenia documented in this encounter Care Teams Steel Construction Worker Relationship Specialty Start Date End Date Deborah Quiroga APRN PCP - General Family Medicine 03/24/16 02/04/23 documented as of this encounter
--- OUTSIDE RECORDS SUMMARY | 2024-03-28 14:32 | XMS_ITS | Encounter Summary ---
[place] [address] Care Team Providers Care Derrick Hand Name Role Phone Deborah Quiroga ANURAG Primary Care Provider [phone] Encounter Details Date Type Department Care Team (Late st Contact Info) Description 07/31/2016 Orders Only Hematology [place] [address] Alexandrea Greenwood RN Neutropenia, unspecified type Social [...] 4:15 PM EDT Office Visit Dermatology at [place] [address] [place] [address] Marek Bonilla MD [address], [place] [address] documented as of this encounter Results * [...] type documented in this encounter Care Teams Derrick Hand Relationship Specialty Start Date End Date Deborah Quiroga, PRODUCTION INTERNSHIP PCP - General Family Medicine 03/24/16 02/04/23 documented as of this encounter
--- OUTSIDE RECORDS SUMMARY | 2024-03-28 14:32 | XMS_ITS | Encounter Summary ---
Author Organization [facility] Address [facility] [place] [address] Care Team Providers Care Day Spa Manager Name Role Phone JunaidAshley hargrovezac Shields APRN Primary Care Provider [phone] Reason for Visit * Consultation (Urgent) - Closed Specialty Diagnoses / Procedures Referred By Contac t Referred To Contact Cardiac Surgery Diagnoses aortic stenosis, consideration for valve replacement Antelmo Burrell MD [address] [place] [address] Alirio Esparza MD [facility] [address] [place] [address] Referral ID Status Reason Start Date Expiration Date V isits Requested Visits Authorized [id number] Closed Connection Center 03/04/2016 03/04/2017 1 1 Encounter Details Date Type Department Care Team (Late st Contact Info) Description 03/24/2016 10:40 AM EDT Office [place] [phone] Alirio Esparza MD Aortic valve stenosis, unspecified [...] This is a patient of Antelmo Burrell [facility] Cardiology. Mrs. Thacker is being [...] 30 minute visit, 20 minutes were spent [id number] with the patient discussing aortic stenosis and valve replacement. documented in this encounter Plan of Treatment Upcoming Encounters Date Type Department Care Team (Late st Contact Info) Description 03/01/2025 4:15 PM EDT Office Visit Dermatology at [place] [address] [place] [address] Marek Bonilla MD [address] [place] [address] documented as of this encounter Visit Diagnoses Diagnosis Aortic valve stenosis, unspecified etiology documented in this encounter Care Teams Day Spa Manager Relationship Specialty Start Date End Date Deborah Quiroga APRN PCP - General Family Medicine 03/24/16 02/04/23 documented as of this encounter
--- OUTSIDE RECORDS SUMMARY | 2024-03-28 14:32 | XMS_ITS | Encounter Summary ---
[place] [address] Care Team Providers Care Auto Air Conditioning Installer Name Role Phone Deborah Quiroga ANURAG Primary Care Provider [phone] Encounter Details Date Type Department Care Team (Late st Contact Info) Description 07/22/2016 External Results [place]ology [place] [address] Alexandrea Greenwood RN Neutropenia, unspecified type Social [...] 4:15 PM EDT Office Visit Dermatology at [place] [address] [place] [address] Marek Bonilla MD [address], [place] [address] documented as of this encounter Procedures Procedure Name Priority Date/Time Associated Diagnosis Comments COPPER, SERUM Routine 07/20/2016 10:30 AM EST Neutropenia, unspecified type CMV PCR, QUANTITATIVE Routine 07/20/2016 10:30 AM EST Neutropenia, unspecified type MONONUCLEOSIS SCREEN (APD/JEANNINE/[facility]) Routine 07/20/2016 10:30 AM EST Neutropenia, unspecified type CBC (WITH DIFF) Routine 07/20/2016 10:30 AM EST Neutropenia, unspecified type documented in this encounter Results * Copper, serum (07/20/2016 10:30 AM EST) Copper (NOVEMBER) 1.09 0.75 - 1.45 EXTERNAL LAB Blood specimen (specimen) 07/20/2016 10:30 AM EST Markel Borjas MD LAB SEND OUT ORDER JODIE Performing Organization Address [facility] Co de Phone Number EXTERNAL LAB * CMV PCR, Quantitative (07/20/2016 10:30 AM EST) CMV PCR,Quantitati ve undetected EXTERNAL LAB Blood specimen (specimen) 07/20/2016 10:30 AM EST Markel Borjas MD MOLECULAR ORDERABL ES Performing Organization Address [facility] Co de Phone Number EXTERNAL LAB * Mononucleosis Screen (07/20/2016 10:30 AM EST) Mononucleosis Screen neg neg - neg EXTERNAL LAB Blood specimen (specimen) 07/20/2016 10:30 AM EST Markel Borjas MD IMMUNOLOGY ORDERAB LES Performing Organization Address [facility] Co [...] type documented in this encounter Care Teams Auto Air Conditioning Installer Relationship Specialty Start Date End Date Deborah Quiroga, PAVING CREW FOREMAN PCP - General Family Medicine 03/24/16 02/04/23 documented as of this encounter
--- OUTSIDE RECORDS SUMMARY | 2024-03-28 14:32 | XMS_ITS | Encounter Summary ---
Author Organization [facility] Address [facility] Erika becerra [address] Care Team Providers Care Silver Recovery Operator Name Role Phone Deborah Quiroga APRN Primary Care Provider Encounter Details Date Type Department Care Team (Late st Contact Info) Description 07/17/2016 9:00 AM EST Office Visit Hematology [place] [address] Markel Borjas MD [facility] [facility] [address] [place] [address] Neutropenia, unspecified type Social History Tobacco Use [...] 07/17/2016 9:00 AM EST Hematology Outpatient Clinic [facility] Hematology Outpatient Consult Note CC: 60 [...] TOUCH PREP, CLOT SECTION, CORE ??BIOPSY); [OSR# [id number], COLLECTED 06/23/2016, 19 SLIDES]: ?1. ??Normocellular marrow [...] a clonal lymphoproliferative or myeloproliferative disorder (OSR# [id number]) Chromosome analysis on the marrow aspirate revealed [...] 24 hour(s)). Labs will be drawn at [facility] next week Imaging As above - [...] leukopenia. Will consi kanwal talking to pt's telephoto installer about a switch from ACEI to ARB [...] included. N [facility] [place] [address] Date: 07/17/16 Patient Name: Purnima Thacker : 1955 Diagnosis: neutropenia Referral to [site]: [facility] Orders: ? Labs: Fax results to . [x] Draw CBC, copper level, CMV PCR, mononucleosis screen on 07/20 Repeat CBC on 07/30 (to measure response of WBC after Neulasta) ? Growth factor: [x] Neulasta 6mg SQ injection x 1 on 07/20/2016 Signature: Markel Borjas MD beeper # [id number] documented in this encounter Plan of Treatment Upcoming Encounters Date Type Department Care Team (Late st Contact Info) Description 03/01/2025 4:15 PM EDT Office Visit Dermatology at [place] [address] [place] [address] Marek Bonilla MD [address], [address] [place] [address] documented as of this encounter [...] ORDERAB LES Performing Organization Address [facility] Co de Phone Number EXTERNAL LAB * Mononucleosis Screen (07/20/2016 10:30 AM EST) Mononucleosis Screen neg neg - neg EXTERNAL LAB Blood specimen (specimen) 07/20/2016 10:30 AM EST Markel Borjas MD IMMUNOLOGY ORDERAB LES Performing Organization Address [facility] Co de Phone Number EXTERNAL LAB * Copper, serum (07/20/2016 10:30 AM EST) Pathologist [facility] Copper (NOVEMBER) 1.09 0.75 - 1.45 EXTERNAL LAB Blood specimen (specimen) 07/20/2016 10:30 AM EST Markel Borjas MD LAB SEND OUT ORDER JODIE Performing Organization Address [facility] de Phone Number EXTERNAL LAB * CMV PCR, Quantitative (07/20/2016 10:30 AM EST) Pathologist [facility] CMV PCR,Quantitati ve undetected EXTERNAL LAB Blood specimen (specimen) 07/20/2016 10:30 AM EST Markel Borjas MD MOLECULAR ORDERABL ES Performing Organization Address [facility] Co de Phone Number EXTERNAL LAB * [...] type documented in this encounter Care Teams Silver Recovery Operator Relationship Specialty Start Date End Date Deborah Quiroga, DRAIN TILE MACHINE OPERATOR PCP - General Family Medicine 03/24/16 02/04/23 documented as of this encounter
--- OUTSIDE RECORDS SUMMARY | 2024-03-28 14:32 | XMS_ITS | Encounter Summary ---
Author Organization [facility] Address [facility] [place] [address] Care Team Providers Care Vacuum Spindle Sander Name Role Phone Deborah Quiroga APRN Primary Care Provider [phone] Encounter Details Date Type Department Care Team (Late st Contact Info) Description 06/16/2016 Orders Only Hematology [place] [address] Nitesh Pina Jr., MD [facility] [address] HEMATOLOGY [place] [address] Cyclical neutropenia Social History Tobacco Use Types [...] 4:15 PM EDT Office Visit Dermatology at [place] [address] [place] [address] Marek Bonilla MD [address] A DERMATOLOGY [place], [place] [phone] documented as of this encounter Visit Diagnoses Diagnosis Cyclical neutropenia Cyclic neutropenia documented in this encounter Care Teams Vacuum Spindle Sander Relationship Specialty Start Date End Date Deborah Quiroga APRN PCP - General Family Medicine 03/24/16 02/04/23 documented as of this encounter
--- OUTSIDE RECORDS SUMMARY | 2024-03-28 14:32 | XMS_ITS | Encounter Summary ---
[place] [address] Care Team Providers Care Senior Sql Dba Name Role Phone Ashley Quirogan Cornelius ANURAG Primary Care Provider [phone] Encounter Details Date Type Department Care Team (Late st Contact Info) Description 03/24/2016 Notes Only [place] [address] Alfa Lua Social History Tobacco Use Types [...] assessments completed: Wadsworth Score: 6/6 IADL: 7/7 Managing Cognitive Engineer Strength Trials: 18.4, 15.0, 16.8 (right hand dominant) 5 meter walk test in seconds x3: 4.98, 4.88, 4.45 KCCQol: 98% Alfa Lua documented in this encounter Plan of Treatment Upcoming Encounters Date Type Department Care Team (Late st Contact Info) Description 03/01/2025 4:15 PM EDT Office Visit Dermatology at [place] [address] [place] [address] Marek Bonilla MD [address], [place] [address] documented as of this encounter Visit Diagnoses Not on filedocumented in this encounter Care Teams Senior Sql Dba Relationship Specialty Start Date End Date Deborah Quiroga APRN PCP - General Family Medicine 03/24/16 02/04/23 documented as of this encounter
--- OUTSIDE RECORDS SUMMARY | 2024-03-28 14:32 | XMS_ITS | Encounter Summary ---
Author Organization [facility] Address [facility] [place] [address] Care Team Providers Care Pediatric Registered Nurse Name Role Phone Deborah Quiroga ANURAG Primary Care Provider [phone] Encounter Details Date Type Department Care Team (Late st Contact Info) Description 07/13/2016 External [place] [id number] Provider, Scanning Social History Tobacco Use Types [...] 4:15 PM EDT Office Visit Dermatology at [place] [address] [place] [address] Marek Bonilla MD [address], [place] [address] documented as of this encounter Procedures Procedure Name Priority Date/Time Associated Diagnosis Comments SURGICAL PATHOLOGY SCAN Routine 07/13/2016 documented in this encounter Results * Scan Doc: Surgical Pathology (07/13/2016) Nitesh Pina Jr., MD MEDIA MGR SCAN EXT O RDR/RSLT documented in this encounter Visit Diagnoses Not on filedocumented in this encounter Care Teams Pediatric Registered Nurse Relationship Specialty Start Date End Date Deborah Quiroga APRN PCP - General Family Medicine 03/24/16 02/04/23 documented as of this encounter
--- OUTSIDE RECORDS SUMMARY | 2024-03-28 14:32 | XMS_ITS | Encounter Summary ---
Author Organization [facility] [place] [address] Care Team Providers Care Yard Person Name Role Phone Eitan Danni ANURAG Primary Care Provider Encounter Details Date Type Department Care Team (Late st Contact Info) Description 01/23/2014 9:25 AM EDT - 01/23/2014 10:25 AM EDT [place] [address] Alan Jacobson MD [facility] [place] [address] CARDIAC CATHETERIZATION Social History Tobacco Use Types [...] by your doctor, do not take any aqkb-dst-iqdlpsm medicines or herbal preparations without first discussing this with your doctor or pharmacist. There is the possibility of side effect and interactions when these are combined. Follow up Care Who to Call with Questions or Problems If there are any questions or problems that you think might be related to your cardiac cath or angioplasty, contact the maternal fetal physician public administration teacher by calling [facility] at . documented in this [...] 4:15 PM EDT Office Visit Dermatology at [place] [address] [place] [address] Marek Bonilla MD [address], [place] [address] documented as of this encounter Procedures Procedure Name Priority Date/Time Associated Diagnosis Comments ECHOCARDIOGRAM TRANSTHORACIC Routine 01/23/2014 3:17 PM EDT SOB (shortness of breath) documented in this encounter Results * Echocardiogram Transthoracic(Leb) (01/23/2014 3:17 PM EDT) Pathologist [employer]ze EF [employer] Anatomical Region Laterality Modality Other 01/23/2014 Narrative 01/23/2014 4:35 PM EDT Procedure: ? Transthoracic Echocardiogram Patient: ? ANDREW ECHOLS M ?(Age): 1955(58) Med Rec#: ?[id number] ? Sex: ?F ? [place] Loc[place] ? Ht / Wt: ??158(cm)/93(kg) Pt. Loc: ? Adult Floor ?BSA: ?2.02 Study Date: ?01/23/2014 ? Pt. Type: Inpatient Tape: ? Referring: Lee Kincaid ([id number]) Referring: ANNALISA Transfer And Pumphouse Operator Chief: Miguel Beverly Diagnosis:CPT Code(s): ??Echo Full (73820), ??Spectral Doppler (80735), Color Doppler (12405), Indication(s): ??Aortic stenosis Rhythm: Sinus HR ?BP [...] ? Mid-Inferior ?Hypokinetic ? Mid-Inferoseptal ?Hypokinetic ? Hawkins-Septal ? Hypokinetic ? Hawkins-Anterior ? Hypokinetic ? Hawkins-Lateral ?Hypokinetic ? Hawkins-Inferior ? Hypokinetic ? Hawkins-Tip ?Hypokinetic ? Chambers ?Value ?Units (Range) ? [...] 16:34:37 Images reviewed and interpretation verified [facility] Cardiac Ultrasound Laboratory Procedure Note Lee Kincaid MD - 01/23/2014 Procedure: Transthoracic Echocardiogram Patient: ANDREW Mejias (Age): 1955(58) Med Rec#: [id number] Sex: F [place] Loc: [facility] Ht / Wt: 158(cm)/93(kg) Pt. Loc: Adult Floor BSA: 2.02 Study Date: 01/23/2014 Pt. Type: Inpatient Tape: Referring: Lee Kincaid ([id number]) Referring: [facility] Transfer And Pumphouse Operator Chief: Miguel Beverly Diagnosis:CPT Code(s): Echo Full (32447), Spectral Doppler (05990), Color Doppler (54393), Indication(s): Aortic stenosis Rhythm: Sinus HR BP [...] Hypokinetic Mid-Posterolateral Hypokinetic Mid-Inferior Hypokinetic Mid-Inferoseptal Hypokinetic Hawkins-Septal Hypokinetic Hawkins-Anterior Hypokinetic Hawkins-Lateral Hypokinetic Hawkins-Inferior Hypokinetic Hawkins-Tip Hypokinetic Chambers Value Units (Range) IVSd 2D [...] 16:34:37 Images reviewed and interpretation verified [facility] Cardiac Ultrasound Laboratory Lee Kincaid [...] RN) documented in this encounter Care Teams Yard Person Relationship Specialty Start Date End Date Danni Laird APRN [address] [place] [address] PCP - General 01/23/14 11/11/14 documented as of this encounter
--- OUTSIDE RECORDS SUMMARY | 2024-03-28 14:32 | XMS_ITS | Encounter Summary ---
[place] [address] Care Team Providers Care Sole Rougher Name Role Phone Ashley Quirogan Cornelius ANURAG Primary Care Provider [phone] Encounter Details Date Type Department Care Team (Late st Contact Info) Description 07/03/2016 External Results [place]ematology [place] [address] Matthew Cervantes, DO [address] [place] [address] Social History Tobacco Use Types Packs/Day Years [...] 4:15 PM EDT Office Visit Dermatology at [place] [address] [place] [address] Marek Bonilla MD [address], [address] A DERMATOLOGY [place], [place] [phone] documented as of this encounter Procedures Procedure Name Priority Date/Time Associated Diagnosis Comments BONE MARROW ASPIRATION PERFO RMED WITH BONE MARRROW BIOPSY Routine 06/28/2016 documented in this encounter Results * BONE MARROW ASPIRATION PREFORMED WITH BONE MARRROW BIOPSY (06/28/2016) Matthew Cervantes DO GENERAL SURGI DANIEL ORDERABLES documented in this encounter Visit Diagnoses Not on filedocumented in this encounter Care Teams Sole Rougher Relationship Specialty Start Date End Date Deborah Qurioga, DEBARKER OPERATOR PCP - General Family Medicine 03/24/16 02/04/23 documented as of this encounter
--- OUTSIDE RECORDS SUMMARY | 2024-03-28 14:32 | XMS_ITS | Encounter Summary ---
[place] [address] Care Team Providers Care Communications Strategist Name Role Phone Deborah Quiroga ANURAG Primary Care Provider [phone] Reason for Visit * Reason Onset Date Comments Medical Care Coordination 07/17/2016 Encounter Details Date Type Department Care Team ([facility] Contact Info) Description 07/17/2016 Telephone Hematology [place] [address] Alexandrea Greenwood RN Medical Care Coordination Social [...] 07/17/2016 12:07 PM EST Message received from computerized machine fabric cutter: Injection/Infusion Referral Call placed to [phone]). Spoke w/ Pasquale. Services to be provided for pt are: Labs @ 10am ([facility]) & [facility] @ 11am on 07/20/16, CBC only on 07/30/16 Pasquale confirmed they would provide services to pt and I left [facility] for pt to call for appt info. Pt demographics, office note, med list and orders faxed to [facility] & [facility] documented in this encounter Plan of Treatment Upcoming Encounters Date Type Department Care Team (Late st Contact Info) Description 03/01/2025 4:15 PM EDT Office Visit Dermatology at [place] [address] [place] [address] Marek Bonilla MD [address], [place] [address] documented as of this encounter Visit Diagnoses Not on filedocumented in this encounter Care Teams Communications Strategist Relationship Specialty Start Date End Date Deborah Quiroga APRN PCP - General Family Medicine 03/24/16 02/04/23 documented as of this encounter
--- OUTSIDE RECORDS SUMMARY | 2024-03-28 14:32 | XMS_ITS | Encounter Summary ---
Author Organization [facility] Address [facility] [place] [address] Care Team Providers Care Patrol Sergeant Name Role Phone JunaidAshley hargrovezac Shields APRN Primary Care Provider [phone] Reason for Visit * Auth/Cert Specialty Diagnoses / Procedures Referred By Crispin t Referred To Contact Diagnoses AVS Procedures CARDIAC CATHETERIZATION Referral ID Status Reason Start Date Expiration Date Visits Re quested Visits Authorized [id number] 1 1 Encounter Details Date Type Department Care Team (Late st Contact Info) Description 06/03/2016 6:32 AM EDT - 06/03/2016 1:10 PM EDT Hospital En[place] [phone] Anjum Oliveros II, MD [facility] [place] [address] Mario Alberto Escobedo MD [facility] [address] Aortic valve stenosis, unspecified etiology; Nonrheumatic aortic [...] by your doctor, do not take any nlnp-xmq-qcztmsm medicinesor herbal preparations without first discussing this with your doctor or pharmacist. There is the possibility of side effects and interactions when these are combined. Follow Up Care Who to call with questions or problems If there are any questions or problems that you think might be related to your cardiac cath or angioplasty, contact the timber killer linen room houseperson by calling [facility] at . * Patient Instructions* Felicia Corirgan - 06/03/2016 9:33 AM EDT Cardiology Instructions Call your doctor if: Chest pain, dyspnea, pain or swelling in legs occurs. If you have non-emergent questions between now and the time of your follow up appointments: -During 8am-5pm Wednesday through Wednesday call [phone] to speak with a nurse in the cardiology clinic -All other times call [phone] and ask to speak to the assistant professor of drama linen room houseperson. MEDICATIONS - restart your spironolactone, discontinue prior [...] Primary care provider: Cardiology: Deborah Hahn, HOME CHILD CARE PROVIDER [phone] Follow up as planned or as needed. Dr. Esparza [phone] Other follow-up appointment: Hematology - Dr. Mario [...] 4:15 PM EDT Office Visit Dermatology at [place] [address] [place] [address] Marek Bonilla MD [address] Katherine DERMATOLOGY [place], [place] [address] documented as of this encounter Procedures Procedure [...] System [place] Hold Sample in lab. [facility] Blood specimen (specimen) Venous Draw / Unknown 06/03/2016 11:45 AM EDT 06/03/2016 12:12 PM EDT Mario Alberto Escobedo MD CHEMISTRY ORDERABLES Performing Organization Address [facility] Co de Phone Number [facility] [place] [address] * Methylmalonic acid, serum (06/03/2016 11:45 AM EDT) [facility] Methylmalonic Acid (NOVEMBER) 0.21 <=0.40 nmol/mL [facility] Comment: Test Performed by: [place] [address] Coding Technician: Raymond Chaudhry II, M.D., Ph.D. Blood specimen (specimen) 06/03/2016 11:45 AM EDT 06/03/2016 1:57 PM EDT Narrative Resulting Agency Comment Spec In Lab Mario Alberto Escobedo MD LAB SEND OUT ORDERAB LES Performing Organization Address [facility] Co de Phone Number [facility] [place] [address] * Granulocyte Antibody (06/03/2016 11:45 AM EDT) [facility] Granulocyte Ab (NOVEMBER) Negative Not Applicable [facility] Comment: ADDITIONAL INFORMATION Method: Immunofluorescent Assay Performing Laboratory CLIA# [id number] This test was developed and its performance characteristics determined by [facility] in a manner consistent with CLIA requirements. This test has not been cleared or approved by the U.S. Food and Drug Administration. Test Performed by: [facility] - [address] [address] Coding Technician: Raymond Chaudhry II, M.D., Ph.D. Blood specimen (specimen) 06/03/2016 11:45 AM EDT 06/03/2016 1:57 PM EDT Narrative Resulting Agency Comment Spec In Lab Mario Alberto Escobedo MD LAB SEND OUT ORDERAB LES Performing Organization Address [facility] Co de Phone Number [facility] [place] [address] * TSH (06/03/2016 11:45 AM EDT) Thyroid Stimulating Hormone 2.18 0.27 - 4.20 mcIU/mL [facility] Blood specimen (specimen) 06/03/2016 11:45 AM EDT 06/03/2016 12:11 PM EDT Narrative Resulting Agency Comment Spec In Lab Mario Alberto Escobedo MD CHEMISTRY ORDERABLES Performing Organization Address [facility] Co de Phone Number [facility] [place] [address] * Homocysteine Total, Plasma (06/03/2016 11:45 AM EDT) Homocystine 9 <=15 mcmol/L [facility] Blood specimen (specimen) 06/03/2016 11:45 AM EDT 06/03/2016 12:11 PM EDT Narrative Resulting Agency Comment Spec In Lab Mario Alberto Escobedo MD CHEMISTRY ORDERABLES Performing Organization Address [facility] Co de Phone Number [facility] [place] [address] * Folate, serum (06/03/2016 11:45 AM EDT) Folate >20.0 4.8 - 24.2 ng/mL [facility] Blood specimen (specimen) 06/03/2016 11:45 AM EDT 06/03/2016 12:04 PM EDT Narrative Resulting Agency Comment Spec In Lab Mario Alberto Escobedo MD CHEMISTRY ORDERABLES Performing Organization Address City/[facility] Co de Phone Number [facility] [place] [address] * (ABNORMAL) Sedimentation rate (06/03/2016 11:45 AM EDT) Pathologist [facility] Sedimentation Rate Automated 41(H) 0 - 20 mm/hr [facility] Blood specimen (specimen) 06/03/2016 11:45 AM EDT 06/03/2016 12:04 PM EDT Narrative Resulting Agency Comment Spec In Lab Mario Alberto Escobedo MD HEMATOLOGY ORDERABLE S Performing Organization Address [facility] Co de Phone Number [facility] [place] [address] * Lactate Dehydrogenase (06/03/2016 11:45 AM EDT) Lactate Dehydrogenase 164 110 - 220 unit/L [facility] Blood specimen (specimen) 06/03/2016 11:45 AM EDT 06/03/2016 12:11 PM EDT Narrative Resulting Agency Comment Spec In Lab Mario Alberto Escobedo MD CHEMISTRY ORDERABLES Performing Organization Address [facility] Co de Phone Number [facility] [place] [address] * Comprehensive metabolic panel (non-fasting) (06/03/2016 11:45 AM EDT) Glucose 90 65 - 199 mg/dL [facility] Comment:Diabetes: >=200 mg/d L plus symptoms Blood Urea Nitrogen 11 8 - 18 mg/dL [facility] Creatinine 0.83 0.70 - 1.20 mg/dL [facility] Comment: Please note that the pediatric reference intervals supplied above were not validated at [facility]. Results from pediatric patients should be interpreted in conjunction to the patient's age, height and muscle mass. Sodium 143 135 - 145 mmol/L [facility] Potassium 4.0 3.5 - 5.0 mmol/L [facility] Comment: Please note: ??Patients with WBC >100,000 may have falsely elevated Potassium levels. ??For accurate Potassium quantification in these patients send serum separator tube (gold top) for subsequent determinations. ??Contact the Clinical Chemistry Laboratory if there are any questions. Chloride 104 98 - 107 mmol/L [facility] Carbon Dioxide 25 22 - 31 mmol/L [facility] Anion Gap 14 5 - 15 mmol/L [facility] Calcium 9.2 8.5 - 10.5 mg/dL [facility] Protein, Total 7.0 6.1 - 8.0 gm/dL [facility] Albumin 4.0 3.2 - 5.2 gm/dL [facility] Aspartate Aminotransferase 17 0 - 30 unit/L [facility] Alanine Aminotransferase 9 0 - 30 unit/L [facility] Alkaline Phosphatase 81 40 - 104 unit/L [facility] Bilirubin, Total 0.4 0.2 - 1.3 mg/dL [facility] Bilirubin, Direct 0.1 0.0 - 0.3 mg/dL [facility] Est Glomerular [...] the following links into your internet browser. [email or web address] Blood specimen (specimen) 06/03/2016 11:45 AM EDT 06/03/2016 12:11 PM EDT Narrative Resulting Agency Comment Spec In Lab Mario Alberto Escobedo MD CHEMISTRY ORDERABLES [facility] [place] [address] documented in this encounter Visit Diagnoses Diagnosis [...] Hernandez) documented in this encounter Care Teams Patrol Sergeant Relationship Specialty Start Date End Date Deborah Quiroga, HOME CHILD CARE PROVIDER PCP - General Family Medicine 03/24/16 02/04/23 documented as of this encounter
--- OUTSIDE RECORDS SUMMARY | 2024-03-30 14:26 | XMS_ITS | Clinical Summary ---
Author Organization [facility] Address [address] [place] [address] Care Team Providers Care Electrical Continuity Inspector Name Role Phone Ashley Chavez Primary Care Provider [phone] Encounters Date Type Department Care Team Description 03/22/2024 Lab Requisition [facility] Pathology & Laboratory [address] [address] Consuelo Guerrero, DO Diaphragmatic hernia without obstruction or gangrene; Anemia, unspecified 03/21/2024 Lab Requisition [facility] Pathology & Laboratory [address] [address] Consuelo Guerrero, DO Encounter for other general examination 03/21/2024 Lab Requisition [facility] Pathology & Laboratory [address] [address] Outr Resulting Lab, Provider from Last 3 [...] 13:00 EDT) LORY Negative 03/21/2024 22:31 EDT [facility] BLOOD BANK Blood VENOUS BLOOD / Unknown 03/21/2024 13:00 EDT 03/21/2024 21:51 EDT Consuelo Guerrero DO BLOOD BANK TESTS Performing Organization Address [facility] Co de Phone Number [facility] [address] [place] [address] * HAPTOGLOBIN (03/21/2024 13:00 EDT) Haptoglobin 183 32 - 197 mg/dL 03/22/2024 10:25 EDT [facility] Blood VENOUS BLOOD / Unknown 03/21/2024 13:00 EDT 03/21/2024 21:50 EDT Provider Outr Resulting Lab CHEMISTRY & BLOOD GAS ORDERABLES Performing Organization Address [facility]/ZIP Co de Phone Number [facility] [address] [place], [place] [address] * SURGICAL PATHOLOGY (03/21/2024 11:35 EDT) Note to Patient The following pathology results have been interpreted by your pathologist and may be available to you before your health provider has had the opportunity to review them. Please allow time for your provider to receive these results and explore management options, if applicable. 03/24/2024 10:36 EDT [facility] Final Diagnosis A. JEJUNUM, PROXIMAL, [...] - Deeper sections x3 examined. 03/24/2024 10:36 [facility] Attestation There was significant resident/fellow involvement in the diagnostic evaluation of this case. By the signature below, the attending physician certifies that they have personally conducted a gross and/or microscopic examination of the described specimens and rendered or confirmed the above diagnosis. 03/24/2024 10:36 [facility] at 1036 Clinical History Anemia, hiatal hernia, 38 cm aguayo diverticulosis 03/24/2024 10:36 [facility] Gross Description A. Received [...] Luis Torres 03/22/2024 9:36 03/24/2024 10:36 EDT [facility] Resident/Estuardo w: Luis Felipe Bragg DO 03/24/2024 10:36 EDT [facility] Performing Lab [facility] 10:36 EDT [facility] Scanned Images 03/24/2024 10:36 EDT [facility] Tissue POLYP OF COLON / [...] 8:19 EDT Consuelo Guerrero DO PATHOLOGY ORDERABLES [facility] [address] [place] [address] from Last 3 Months Care Teams Electrical Continuity Inspector Relationship Specialty Start Date End Date Ashley Chavez ARNP [address] [place] [address] PCP - General 07/11/10
--- OUTSIDE RECORDS SUMMARY | 2024-03-30 14:27 | XMS_ITS | Encounter Summary ---
Author Organization [facility] Address [address] [place] [address] Care Team Providers Care Paint Factory Worker Name Role Phone Unavailable Primary Care Provider Unavailabl e Encounter Details Date Type Department Care Team (Late st Contact Info) Description 07/08/2010 10:55 EST - 07/08/2010 10:56 EST Hospital Encounter [facility] - Other [address] [place] [address] Ashley Chavez, WILLIAM [address] [place] [address] Discharge Disposition: Home or Self Care Social [...]
--- OUTSIDE RECORDS SUMMARY | 2024-03-30 14:27 | XMS_ITS | Encounter Summary ---
Author Organization [facility] Address [address] [place] [address] Care Team Providers Care Peoplesoft Business Analyst Name Role Phone Ashley Chavez Primary Care Provider Encounter Details Date Type Department Care Team (Late st Contact Info) Description 04/29/[address] [facility] Pathology & Laboratory Medicine - [address] [address] Outr Resulting Lab, Provider Social History Tobacco [...] Antibody 1.6 <20.0 Units 04/30/2022 12:23 EDT [facility] Comment: ? Negative: <20.0 Units [...] SEROLOGY ORDERABLES Performing Organization Address [facility] de Phone Number [facility] [address] [place] [address] * SSA ANTIBODIES BY DOMO (04/29/2022 7:51 EDT) SSA Antibody 1.5 <20.0 Units 04/30/2022 12:22 EDT [facility] Comment: ? Negative: <20.0 Units [...] [place] SEROLOGY ORDERABLES Performing Organization Address [facility] de Phone Number [facility] [address] [place] [address] documented in this encounter Visit Diagnoses Not on filedocumented in this encounter Care Teams Peoplesoft Business Analyst Relationship Specialty Start Date End Date Ashley Chavez ARNP [address] [place] [address] PCP - General 07/11/10 documented as of this encounter
--- OUTSIDE RECORDS SUMMARY | 2024-03-30 14:27 | XMS_ITS | Encounter Summary ---
Author Organization [facility] [place] [address] Care Team Providers Care Flat Polisher Name Role Phone Magdalena Acosta MD Primary Care Provider [phone] Reason for Referral * Diagnostic Test (Routine) - New Request Specialty Diagnoses / Procedures Referred By Contac t Referred To Contact Cardiology Diagnoses S/P TAVR (transcatheter aortic valve replacement) Procedures Echocardiogram Transthoracic Antelmo Sharma MD [facility] [place] [address] [facility] [place] [address] Referral ID Status Reason Start Date Expiration Date Visits Requested Visits Authorized [id number] New Request Specialty Service Requested 12/16/2023 12/15/2024 1 1 Encounter Details Date Type Department Care Team (Late st Contact Info) Description 12/16/2023 Orders Only Cardiology at [address] [address] Antelmo Sharma MD [facility] [place] [address] S/P TAVR (transcatheter aortic valve [...] 4:15 PM EDT Office Visit Dermatology at [place] [address] [facility] [place] [address] Marek Bonilla MD [address], [address] [place] [address] Scheduled Orders Name Type Priority Associated Diagnoses [...] documented in this encounter Care Teams Flat Polisher Relationship Specialty Start Date End Date Magdalena Acosta MD [address] [place] [address] PCP - General Family Medicine 02/05/23 documented as of this encounter
--- OUTSIDE RECORDS SUMMARY | 2024-03-30 14:27 | XMS_ITS | Clinical Summary ---
Author Organization [facility] Address [facility] [place] [address] Care Team Providers Care Bistro Server Name Role Phone Magdalena Acosta MD Primary Care Provider [phone] Allergies No known active allergies Medications Medication [...] fraction 05/08/2023 Mild coronary artery disease by [facility] 11/09/2022 Heart failure with reduced e jection [...] Care Team Description 03/01/2024 Telephone Cardiology at [address] [address] Cynthia Monsalve RN Pre Procedure Call (DAPT hold for EGD and colo?) 02/22/2024 4:15 PM EDT Office Visit Dermatology at [address] [address] Marek Bonilla MD Seborrheic keratosis; [...] 4:15 PM EDT Office Visit Dermatology at [place] [address] [facility] [place] [address] Marek Bonilla MD [address], [place] [address] Health Maintenance Due Date Last Done Comments [...] 06/05/2036 06/05/2021 Medical Devices Implanted Type Area Ranch Supervisor Device Identifier Shelf Expiration Date Model / Serial / Lot Valve,Aor,Pericar d,Magna,25mm ([id number]) - [id number] Implanted:Qty: 1 on 09/21/2016 by Alirio Esparza MD at [facility] IMPLANTS N/A: Heart DO NOT USE [employer] - [id number] 06/02/2020 [id number] / / [id number] Cable,Blnt,Ss,38i n ([id number]) - [id number] Implanted:Qty: 4 on 09/21/2016 by Alirio Esparza MD at [facility] IMPLANTS N/A: Chest [employer] - [id number] 04/29/2021 [id number] / / [id number] Patch,Cav,Pericar d,2x5cm ([id number]) ([employer]oreq) - [id number] Implanted:Qty: 1 on 09/21/2016 by Alirio Esparza MD at [facility] IMPLANTS N/A: Heart DO NOT USE [employer] - [id number] 04/21/2018 [id number] / / [id number] Tavr-05/12/2023 Implanted:Qty: 1 on 05/12/2023 by Antelmo Sharma MD Other Heart [employer] - JAIME LI [id number] / [id number] / Description:JAIME [employer] NCES ABBY 3 ULTRA [...] EST) Glucose 93 65 - 199 mg/dL [facility] Comment:Diabetes: >=200 mg/d L plus symptoms Blood Urea Nitrogen 19(H) 8 - 18 mg/dL [facility] Creatinine 0.81 0.70 - 1.20 mg/dL [facility] Sodium 142 135 - 145 mmol/L [facility] Potassium 3.8 3.5 - 5.0 mmol/L [facility] Comment: Please note: ??Patients with WBC >100,000 may have falsely elevated Potassium levels. ??For accurate Potassium quantification in these patients send serum separator tube (gold top) for subsequent determinations. ??Contact the Clinical Chemistry Laboratory if there are any questions. Chloride 104 98 - 107 mmol/L [facility] Carbon Dioxide 26 22 - 31 mmol/L [facility] Anion Gap 12 5 - 15 mmol/L [facility] Calcium 10.2 8.5 - 10.5 mg/dL [facility] Protein, Total 7.4 6.1 - 8.0 g/dL [facility] Albumin 4.1 3.2 - 5.2 g/dL [facility] Aspartate Aminotransferase 24 0 - 30 unit/L [facility] Alanine Aminotransferase 12 0 - 30 unit/L [facility] Alkaline Phosphatase 93 35 - 105 unit/L [facility] Bilirubin, Total 0.3 0.2 - 1.3 mg/dL [facility] Est Glomerular Filtration Rate 80 >=60 mL/min/1. 73 m?? [facility] [...] MD CHEMISTRY ORDERABLE S Performing Organization Address City/State/[facility] Co de Phone Number [facility] [place] [address] * DXA Central Spine, Hip, and/or Whole Body (Generic) (06/05/2021 11:58 AM EDT) PT CLASS O RAD ADMITDTTM RAD PT RAD INFO [id number]^E VERETT^DEBORAH ^E RAD EXAM DESC XDXAC^DEXA SCAN [...] have questions please contact the health manager of care that requested your imaging first. ? Electronically signed by: Rocael Villatoro MD, [facility] ([phone]), at 06/05/2021 12:00 PM Narrative 06/05/2021 12:00 [...] who have questions please contactthe health manager of care that requested your imaging first. Electronically signed by: Rocael Villatoro MD, [facility]([phone]), at 06/05/2021 12:00 PM Deborah Quiroga DECK STEWARD IMG DEXA ORDERABLES * Mammo Screening Cad Bilateral (06/05/2021 11:42 AM EDT) PT CLASS O DH RAD ADMITDTTM DH RAD PT DH RAD INFO [id number]^EV ERETT^DEBORAH^E DH RAD EXAM DESC MADDSC^SCREEN MAMMO [...] have questions please contact the health manager of care that requested your imaging first. ? Electronically signed by: Rocael Villatoro MD, [facility] ([phone]), at 06/05/2021 1:27 PM Narrative 06/05/2021 1:27 [...] who have questions please contactthe health manager of care that requested your imaging first. Electronically signed by: Rocael Villatoro MD, [facility]([phone]), at 06/05/2021 1:27 PM Deborah Quiroga APRN [...] capacity to make decision: Yes Care Teams Bistro Server Relationship Specialty Start Date End Date Magdalena Acosta MD [address] [place] [address] PCP - General Family Medicine 02/05/23
--- OUTSIDE RECORDS SUMMARY | 2024-03-30 14:27 | XMS_ITS | Encounter Summary ---
[place] [address] Care Team Providers Care Frame Feeder Name Role Phone Magdalena Acosta MD Primary Care Provider [phone] Encounter Details Date Type Department Care Team [...] 4:15 PM EDT Office Visit Dermatology at [place] [address] [place] [address] Marek Bonilla MD [address], TODD A DERMATOLOGY [place], [place] [phone] documented as of this encounter Visit Diagnoses Not on filedocumented in this encounter Care Teams Frame Feeder Relationship Specialty Start Date End Date Mgadalena Acosta MD [address] [place] [address] PCP - General Family Medicine 02/05/23 documented as of this encounter
--- OUTSIDE RECORDS SUMMARY | 2024-03-30 14:27 | XMS_ITS | Encounter Summary ---
Author Organization [facility] Address [address] [place] [address] Care Team Providers Care Care Manager Cna Name Role Phone ScottNicolei WILLIAM Primary Care Provider [phone] Encounter Details Date Type Department Care Team (Late st Contact Info) Description 03/21/2024 Lab Requisition [facility] Pathology & Laboratory Medicine - [address] [address] Consuelo Guerrero, DO [address] [place], [place] [address] Encounter for other general examination Social History [...] 13:00 EDT) LORY Negative 03/21/2024 22:31 EDT [facility] Blood VENOUS BLOOD / Unknown 03/21/2024 13:00 EDT 03/21/2024 21:51 EDT Consuelo Guerrero DO BLOOD BANK TESTS [facility] [address] [place] [address] documented in this encounter Visit Diagnoses Diagnosis Encounter for other general examination documented in this encounter Care Teams Care Manager Cna Relationship Specialty Start Date End Date Ashley Chavez ARNP [address] [place] [address] PCP - General 07/11/10 documented as of this encounter
--- OUTSIDE RECORDS SUMMARY | 2024-03-30 14:27 | XMS_ITS | Encounter Summary ---
Author Organization [facility]ending [facility] [place] [address] Care Team Providers Care Wildlife Photographer Name Role Phone Magdalena Acosta MD Primary Care Provider [phone] Reason for Visit * Reason Comments Coronary Artery Disease Hypertension Aortic Stenosis Encounter Details Date Type Department Care Team (Latest Contact Info) Description 07/20/2023 4:40 PM EST TH Visit (TeleHealth) Cardiology at [address] [address] Jay Maza PA [facility] [address] HFrEF (heart failure with reduced ejection fraction); [...] Maza PA - 07/20/2023 4:40 PM EST [facility] Interventional Cardiology CARDIOLOGY [...] lieu of an in person office visit. Pigment Presser: Antelmo Sharma MD ([facility] Cards) Maria Luz Mejia MD ([facility] cards) Problem List: : prior [...] fraction I35.0 Mild coronary artery disease by [facility] 11/09/2022 I25.10 Heart failure [...] notable for coronary artery protection given low kxaoo-zn-irppaxso distance. There was no obstruction post Valve deployment, but the stent could not be removed safely, so it was deployed. 4.0 mm x 30mm in left main. She was loaded on brilinta aka ticagrelor. Immediately post valve deployment, chest compressions to circulate central epinephrine which was administered given her hypotension, low LVEF, and low cardiac reserve. Next, the patient was transferred to [facility] for pressor and inotropic support. Pressors weaned overnight. Cardiac indices by thermodilution remained greater than 3 with continued Milrinone 0.125 mcg/kg/min. EKG the next day with NSR with stable VT/QRS intervals. Hemoglobin 7.8 today from 8.5, likely [...] arms and wrists. Successful right transfemoral TAVR Nsmpn-ad-Ctnio with a 23 mm Lai 3 THV. [...] leads Confirmed by MD Harshil, Haris Bell ([id number]) on 05/10/2023 8:11:46 AM Cardiac Cath 11/09/2022 [...] in chart review and direct patient contact. [id number] 0-5min 1094TOL9 6-10min 0404FUR7 11-15min 6560AYT7 16-20min x 3227WNC6 21-30min 9091XHZ3 31-40min 3428WZP3 40+ min Jay Maza PA-C Interventional Cardiology [facility] Pager [phone] documented in this encounter Plan of Treatment Upcoming Encounters Date Type Department Care Team (Late st Contact Info) Description 03/01/2025 4:15 PM EDT Office Visit Dermatology at [place] [address] [place] [address] Marek Bonilla MD [address], [place] [address] documented as of this encounter Visit Diagnoses Diagnosis HFrEF (heart failure with reduced ejection fraction) Hypertension, unspecified type Aortic valve stenosis, etiology of cardiac valve disease unspecified documented in this encounter Care Teams Wildlife Photographer Relationship Specialty Start Date End Date Magdalena Acosta MD [address] [place] [address] PCP - General Family Medicine 02/05/23 documented as of this encounter
--- OUTSIDE RECORDS SUMMARY | 2024-03-30 14:27 | XMS_ITS | Encounter Summary ---
Author Organization [facility] Address [address] [place] [address] Care Team Providers Care Police Lieutenant Precinct Name Role Phone Scott, Ashley WILLIAM Primary Care Provider [phone] Encounter Details Date Type Department Care Team (Late st Contact Info) Description 12/23/2016 Results Only [facility] [phone] Deborah Quiroga, TUNGSTEN TENDER [address] [place] [phone] Social History Tobacco Use Types Packs/Day Years [...] ? 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 Accession #: ? [id number] ? : ? 1955 (Age: 61) ??F ?Collect Date: ? 12/23/2016 ? Location: ? [facility] ? Receive Date: ? 12/25/2016 ? Provider: DEBORAH QUIROGA MAJOR APPLIANCE ASSEMBLY SUPERVISOR Copy to: ? Final Report SPECIMEN ADEQUACY ? Satisfactory for Evaluation - transformation zone component present GENERAL CATEGORIZATION ? Negative for Intraepithelial Lesion or Malignancy ?? Last Menstrual Period: years Specimen/Source: ??Pap Test, Cervix, ThinPrep Imaging System with manual evaluation Document reviewed and electronically signed by: ? Monica Cason [facility](AS[facility]) ? Report ??Date: 01/06/2017 09:11 HPV with Pap Test ? Date Ordered: ? 01/06/2017 ? Status: ?? Signed Out ?Date Complete: ? 01/07/2017 ? By: ??System Interface ? Date Reported: ? 01/07/2017 ? Interpretation RESULT: Negative for HPV. No E6 or E7 mRNA is detected from HPV types 16,18,31,33,35, 39,45,51,52,56,58, 59,66, and 68 by fresco artist mediated amplification. Comments Document reviewed and electronically signed by: ? System Interface ? Report date: 01/07/2017 By the signature above, the attending physician certifies that he/she has personally conducted a gross and/or microscopic examination of the described specimens and rendered or confirmed the above diagnosis. End of Report [facility] 12/23/2016 12/25/2016 Deborah Quiroga TUNGSTEN TENDER PATHOLOGY ORDERABLES [facility] [address] [place] [address] documented in this encounter Visit Diagnoses Not on filedocumented in this encounter Care Teams Police Lieutenant Precinct Relationship Specialty Start Date End Date Ashley Chavez ARNP [address] [place] [address] PCP - General 07/11/10 documented as of this encounter
--- OUTSIDE RECORDS SUMMARY | 2024-03-30 14:27 | XMS_ITS | Encounter Summary ---
[place] [address] Care Team Providers Care Assurance Manager Name Role Phone Magdalena Acosta MD Primary Care Provider [phone] Encounter Details Date Type Department Care Team [...] 4:15 PM EDT Office Visit Dermatology at [place] [address] [place] [address] Marek Bonilla MD [address], TODD A DERMATOLOGY [place], [place] [address] documented as of this encounter Visit Diagnoses Not on filedocumented in this encounter Care Teams Assurance Manager Relationship Specialty Start Date End Date Magdalena Acosta MD [address] [place] [address] PCP - General Family Medicine 02/05/23 documented as of this encounter
--- OUTSIDE RECORDS SUMMARY | 2024-03-30 14:27 | XMS_ITS | Encounter Summary ---
Author Organization [facility] Address [facility] [place] [address] Care Team Providers Care Spice Miller Hammer Mill Name Role Phone Magdalena Acosta MD Primary Care Provider [phone] Encounter Details Date Type Department Care Team (Late st Contact Info) Description 07/29/2023 11:00 AM EST Office [place] [address] Magdalena Peralta MD [facility] [place] [address] Mixed connective tissue disease Social History Tobacco [...] 1:5120 speckled; VIC negative; Myositis panel with BUDGET CONSULTANT ab 149.1 (positive); Anti U1RNP IgG 119; [...] Viramontes. Magdalena Peralta MD Rheumatology Fellow Pager: [phone] * Kia Viramontes DO - 07/29/2023 11:00 AM EST ATTENDING ADDENDUM The patient's history was reviewed, and I interviewed and examined the patient with Dr. Peralta I agree with her summary, findings, and plan. documented in this encounter Plan of Treatment Upcoming Encounters Date Type Department Care Team (Late st Contact Info) Description 03/01/2025 4:15 PM EDT Office Visit Dermatology at [place] [address] [facility] [place] [address] Marek Bonilla MD [address] [facility], [place] [address] documented as of this encounter Results * [...] PFT FEV1/FVC Pre-BD Z-Score 0 COMPAS PFT QYE04-28 Actual Pre-BD 2.41 % COMPAS PFT CFA75-57 Predicted 1.8 % COMPAS PFT HFR18-89 Pre-BD % of Predicted 134 % COMPAS PFT NTL22-87 Pre-BD Z-Score 0.81 COMPAS PFT DLCO Hb [...] tissue documented in this encounter Care Teams Spice Miller Hammer Mill Relationship Specialty Start Date End Date Magdalena Acosta MD [address] [place] [address] PCP - General Family Medicine 02/05/23 documented as of this encounter
--- OUTSIDE RECORDS SUMMARY | 2024-03-30 14:27 | XMS_ITS | Encounter Summary ---
[place] [address] Care Team Providers Care Defence Force Member Other Ranks Name Role Phone Magdalena Acosta MD Primary Care Provider [phone] Encounter Details Date Type Department Care Team [...] 4:15 PM EDT Office Visit Dermatology at [place] [address] [place] [address] Marek Bonilla MD [address], TODD A DERMATOLOGY [place], [place] [address] documented as of this encounter Visit Diagnoses Not on filedocumented in this encounter Care Teams Defence Force Member Other Ranks Relationship Specialty Start Date End Date Magdalena Acosta MD [address] [place] [address] PCP - General Family Medicine 02/05/23 documented as of this encounter
--- OUTSIDE RECORDS SUMMARY | 2024-03-30 14:27 | XMS_ITS | Encounter Summary ---
Author Organization [facility] Address [address] [place] [address] Care Team Providers Care Cylinder Honer Name Role Phone Ashley Chavez Primary Care Provider [phone] Encounter Details Date Type Department Care Team (Late st Contact Info) Description 03/22/2024 Lab Requisition [facility] Pathology & Laboratory Medicine - [address] [address] Consuelo Guerrero, DO [address] [place], [place] [address] Diaphragmatic hernia without obstruction or gangrene; Anemia, [...] explore management options, if applicable. 03/24/2024 10:36 [facility] Final Diagnosis A. JEJUNUM, [...] - Deeper sections x3 examined. 03/24/2024 10:36 [facility] Attestation There was significant resident/fellow involvement in the diagnostic evaluation of this case. By the signature below, the attending physician certifies that they have personally conducted a gross and/or microscopic examination of the described specimens and rendered or confirmed the above diagnosis. 03/24/2024 10:36 [facility] at 1036 Clinical History Anemia, hiatal hernia, 38 cm aguayo diverticulosis 03/24/2024 10:36 [facility] Gross Description A. Received [...] 9:36 03/24/2024 10:[address] [facility] Resident/Estuardo w: Luis Felipe Bragg DO 03/24/2024 10:[address] [facility] Performing Lab [facility] 10:[address] [facility] Scanned Images 03/24/2024 10:[address] [facility] Tissue POLYP OF COLON [...] 8:19 EDT Consuelo Guerrero DO PATHOLOGY ORDERABLES [facility] [address] [place] [address] documented in this encounter Visit Diagnoses Diagnosis Diaphragmatic hernia without obstruction or gangrene Diaphragmatic hernia without mention of obstruction or gangrene Anemia, unspecified documented in this encounter Care Teams Cylinder Honer Relationship Specialty Start Date End Date Ashley Chavez ARNP [address] [place] [address] PCP - General 07/11/10 documented as of this encounter
--- OUTSIDE RECORDS SUMMARY | 2024-03-30 14:27 | XMS_ITS | Encounter Summary ---
Author Organization [facility] Address [address] [place] [address] Care Team Providers Care Regional Climate Change Analyst Name Role Phone Ashley Chavez Primary Care Provider [phone] Encounter Details Date Type Department Care Team (Late st Contact Info) Description 06/23/2016 Results Only [facility] [phone] Matthew Acevedo, DO [address] [facility] [place] [address] [place] [address] Social History Tobacco Use Types Packs/Day [...] ? 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 Accession #: ? [id number] : ? 1955 (Age: 60) ??F ?Collect [...] ??400 ?? KARYOTYPE: 46,XX[25] End of Report [facility] 06/23/2016 06/24/2016 Matthew Acevedo DO PATHOLOGY ORDER JODIE [facility] [address] [place] [address] * FLOW CYTOMETRY (06/23/2016 0:00 EST) Pathology Report: FLOW CYTOMETRY REPORT Reports generated via electronic interface contain original data; however they are lacking the format of the original report. Caution should be taken when reading/interpreting unformatted reports. Name: ? 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 Accession #: ? [id number] : ? 1955 (Age: 60) ??F ?Collect Date: ? 06/23/2016 00:00 Location: ? [facility] ? Receive Date: ? 06/24/2016 08:00 Provider: ?MATTHEW ACEVEDO DO Copy to: ?WINTER HANKINS GAS FITTER HELPER MARIO ALBERTO RAMOS MD ? FINAL IMMUNOPHENOTYPIC INTERPRETATION: ? Bone marrow, flow cytometric analysis: -No immunophenotypic evidence of a clonal cell population. ??See comment. ? COMMENT: The results of flow cytometry show no immunophenotypic evidence of involvement by a clonal lymphoproliferative or myeloproliferative disorder. ??Correlation of these findings with morphologic and clinical data is essential. ??Please refer to pathology report number [id number] for morphologic details. ? Document reviewed and [...] the Department of Pathology and Laboratory Medicine, [place] ??It has not been cleared or [...] clinical laboratory testing. End of Report ?? [facility] 06/23/2016 06/24/2016 8:0 0 EST Matthew Acevedo DO PATHOLOGY ORDER JODIE [facility] [address] [place] [address] * BONE MARROW/HEMPATH CONSULT (06/23/2016 0:00 EST) Pathology Report: BONE MARROW REPORT Reports generated via electronic interface contain original data; however they are lacking the format of the original report. Caution should be taken when reading/interpreting unformatted reports. Name: ? 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 Accession #: ? [id number] : ? 1955 (Age: 60) ??F ?Collect Date: ? 06/23/2016 Location: ? [facility] ? Receive Date: ? 06/24/2016 Provider: ? MATTHEW ACEVEDO DO Copy to: ?WINTER HANKINS GAS FITTER HELPER MARIO ALBERTO RAMOS MD ? DIAGNOSIS: Peripheral [...] #1: Aggregate biopsy length: 8 mm with food tray assembler trabeculae of lamellar bone, cellular bone marrow, [...] SEE ABOVE DISCUSSION Lambda (polyclonal, Dako) ??(B1): Hilda (polyclonal, Dako) ??(B1): Biopsy (decalcified) #2: Aggregate biopsy length: 8 mm with food tray assembler trabeculae of lamellar bone, cellular bone marrow, [...] (M115, Leica) ??(B2): Lambda (polyclonal, Dako) ??(B2): Hilda (polyclonal, Dako) ??(B2): NOTE: ??One or more [...] performance characteristics have been determined by [facility]. ??The positive and negative controls worked [...] ? 1% Blasts ?1% Special Studies Cytogenetics ([id number]): Pending. Flow Cytometry ([id number]): No immunophenotypic evidence of a clonal cell population. ? End of Report [facility] 06/23/2016 06/24/2016 Matthew Acevedo DO PATHOLOGY ORDER JODIE [facility] [address] [place] [address] documented in this encounter Visit Diagnoses Not on filedocumented in this encounter Care Teams Regional Climate Change Analyst Relationship Specialty Start Date End Date Ashley Chavez ARNP [address] [place] [address] PCP - General 07/11/10 documented as of this encounter
--- OUTSIDE RECORDS SUMMARY | 2024-03-30 14:27 | XMS_ITS | Encounter Summary ---
Author Organization [facility] Address [address] [place] [address] Care Team Providers Care Masonry Contractor Administrator Name Role Phone Ashley Chavez Primary Care Provider [phone] Encounter Details Date Type Department Care Team (Late st Contact Info) Description 01/07/2023 Lab Requisition [facility] Pathology & Laboratory Medicine - [address] [address] Outr Resulting Lab, Provider Social History Tobacco [...] 56.2 55.8 - 66.1 % 01/08/2023 11:28 [facility] Albumin g/dL 3.9 3.6 - 5.2 g/dL 01/08/2023 11:28 [facility] Alpha-1 % 5.1(H) 2.9 - 4.9 % 01/08/2023 11:28 [facility] Alpha-1 g/dL 0.40 0.15 - 0.40 g/dL 01/08/2023 11:28 [facility] Alpha-2 % 7.0(L) 7.1 - 11.8 % 01/08/2023 11:28 [facility] Alpha-2 g/dL 0.50 0.50 - 1.00 g/dL 01/08/2023 11:28 [facility] Beta % 12.7 8.4 - 13.1 % 01/08/2023 11:28 [facility] Beta g/dL 0.90 0.60 - 1.20 g/dL 01/08/2023 11:28 [facility] Gamma % 19.0(H) 11.1 - 18.8 % 01/08/2023 11:28 [facility] Gamma g/dL 1.30 0.60 - 1.60 g/dL 01/08/2023 11:28 [facility] SPEP Comment No apparent monoclonal protein seen on serum electrophoresis 01/08/2023 11:28 [facility] Comment:See scanned/suppleme ntary report. Total Protein 6.9 6.3 - 8.2 g/dL 01/08/2023 11:28 [facility] Blood VENOUS BLOOD / Unknown 01/06/2023 14:40 EDT 01/07/2023 17:37 EDT Provider Outr Resulting Lab CHEMISTRY & BLOOD GAS ORDERABLES Performing Organization Address City/State/[facility] Co de Phone Number [facility] [address] [place] [address] * PROTEIN, TOTAL (01/06/2023 14:40 EDT) Blood VENOUS BLOOD / Unknown 01/06/2023 14:40 EDT 01/07/2023 17:37 EDT Provider Outr Resulting Lab CHEMISTRY & BLOOD GAS ORDERABLES Performing Organization Address [facility] Co de Phone Number [facility] [address] [place] [address] * (ABNORMAL) EXTRACTABLE NUCLEAR ANTIGEN PANEL (01/06/2023 14:40 EDT) SSA Antibody 1.3 <20.0 Units 01/08/2023 15:42 EDT [facility] Comment: ? Negative: <20.0 [...] Antibody 1.5 <20.0 Units 01/08/2023 15:42 EDT [facility] Comment: ? Negative: <20.0 [...] Antibody 15.3 <20.0 Units 01/08/2023 15:42 EDT [facility] Comment: ? Negative: <20.0 Units ? Weak Positive: 20.0 - 39.9 Units ? Moderate Positive: 40.0 - 80.0 Units ? Strong Positive: >80.0 Units Results were obtained with the [employer] Media[employer] QUANTA Lite Sm DOMO. ??Sm values obtained with different manufacturers' assay methods may not be used interchangeably. ??The magnitude of the reported IgG levels cannot be correlated to an endpoint titer. SAND AND GRAVEL PLANT OPERATOR Antibody 149.1(H) <20.0 Units 01/08/2023 15:42 EDT [facility] Comment: ? Negative: <20.0 Units ? Weak Positive: 20.0 - 39.9 Units ? Moderate Positive: 40.0 - 80.0 Units ? Strong Positive: >80.0 Units Results were obtained with the COPsyncva Quanta Lite SAND AND GRAVEL PLANT OPERATOR DOMO. SAND AND GRAVEL PLANT OPERATOR values obtained with different migratory game bird biologist's assay methods may not be used interchangeaby. ??The magnitude of the reported IgG levels cannot be be correlated to an endpoint titer. A positive result in the Quanta Lite SAND AND GRAVEL PLANT OPERATOR DOMO indicates the presence of antibodies reactive with the SAND AND GRAVEL PLANT OPERATOR/Sm complex but cannot distinguish between anti-Sm and anti-SAND AND GRAVEL PLANT OPERATOR activity. Blood VENOUS BLOOD / Unknown 01/06/2023 14:40 EDT 01/07/2023 17:37 EDT Provider Outr Resulting Lab IMMUNOLOGY A ND SEROLOGY ORDERABLES [facility] [address] [place] [address] * (ABNORMAL) ANTI NUCLEAR AB (FRANCISCO), IFA (01/06/2023 14:40 EDT) FRANCISCO Interpretation Positive(A) Negative 01/08/2023 15:22 EDT [facility] Comment: Result is equal to or greater than 1:5120. For titers greater than or equal to 1:160 (except the centromere, nucleolar, and dense fine speckled patterns) it is recommended that specific, follow-up autoantibody testing (such as for dsDNA and Extractable Nuclear Antigens) be performed on all diffuse and/or speckled patterns. FRANCISCO Titer and Pattern 1 1:5120 Speckled 01/08/2023 15:22 EDT [facility] Blood VENOUS BLOOD / Unknown 01/06/2023 14:40 EDT 01/07/2023 17:37 EDT Narrative [facility] - 01/08/2023 15:22 EDT Results were obtained with the INOVA NOVA Lite HEp-2 FRANCISCO Kit by indirect immunofluorescence. Provider Outr Resulting Lab IMMUNOLOGY A ND SEROLOGY ORDERABLES Performing Organization Address City/State/[facility] Co de Phone Number [facility] [address] [place] [address] documented in this encounter Visit Diagnoses Not on filedocumented in this encounter Care Teams Masonry Contractor Administrator Relationship Specialty Start Date End Date Ashley Chavez ARNP [address] [place] [address] PCP - General 07/11/10 documented as of this encounter
--- OUTSIDE RECORDS SUMMARY | 2024-03-30 14:27 | XMS_ITS | Encounter Summary ---
Author Organization [facility] Address [address] [place] [address] Care Team Providers Care Retina Subspecialist Name Role Phone Unavailable Primary Care Provider Unavailabl e Encounter Details Date Type Department Care Team (Late st Contact Info) Description 06/29/2007 Results Only [facility] - Maple conversion [address] [place] [address] Sánchez Acevedo MD [address] [place] [address] Social History Tobacco Use Types Packs/Day Years [...] ? 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 Accession #: ? [id number] ? : ? 1955 (Age: 51) ??F [...] covered by a smooth white serosa. ??Three inside account representative sections of the gallbladder are submitted in one cassette. ??(Sriram Elias/[facility] End of Report [facility] 06/29/2007 06/29/2007 21: 23 EST Sánchez Acevedo MD PATHOLOGY ORDERABLE S [facility] [address] [place] [address] documented in this encounter Visit Diagnoses Not on filedocumented in this encounter
--- OUTSIDE RECORDS SUMMARY | 2024-03-30 14:27 | XMS_ITS | Encounter Summary ---
Author Organization [facility] Address [address] [place] [address] Care Team Providers Care Tempering Machine Operator Name Role Phone Unavailable Primary Care Provider Unavailabl e Encounter Details Date Type Department Care Team (Late st Contact Info) Description 04/20/2005 Results Only [facility] - Maple conversion [address] [place] [address] Ziggy Valiente MD [address] [place] [id number] Social History Tobacco Use Types Packs/Day Years [...] ? 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 Accession #: ? [id number] ? : ? 1955 (Age: 49) ??F [...] is entirely submitted in one cassette. ??(Arabella Santos)/[facility] End of Report [facility] 04/20/2005 04/21/2005 15: 04 EDT Ziggy Valiente MD PATHOLOGY ORDERABLES [facility] [address] [place] [address] documented in this encounter Visit Diagnoses Not on filedocumented in this encounter
--- OUTSIDE RECORDS SUMMARY | 2024-03-30 14:27 | XMS_ITS | Encounter Summary ---
Author Organization [facility] [place] [address] Care Team Providers Care Shuttle Final Inspector Name Role Phone Magdalena Acosta MD Primary Care Provider [phone] Reason for Referral * Diagnostic Test (Routine) - Closed Specialty Diagnoses / Procedures Referred By Contac t Referred To Contact Cardiology Diagnoses S/P TAVR (transcatheter aortic valve replacement) Procedures Echocardiogram Transthoracic Vinod Juárez PA [facility] [place] [address] [facility] [place] [address] Referral ID Status Reason Start Date Expiration Date V isits Requested Visits Authorized [id number] Closed Specialty Service Requested 05/22/2023 05/21/2024 1 1 Reason for Visit * Diagnostic Test (Routine) - Closed Specialty Diagnoses / Procedures Referred By Contac t Referred To Contact Cardiology Diagnoses S/P TAVR (transcatheter aortic valve replacement) Procedures Echocardiogram Transthoracic Vinod Juárez PA [facility] [address] [facility] [place] [address] Referral ID Status Reason Start Date Expiration Date V isits Requested Visits Authorized [id number] Closed Specialty Service Requested 05/22/2023 05/21/2024 1 1 Encounter Details Date Type Department Care Team (Latest Contact Info) Description 07/08/2023 10:19 AM EST - 07/08/2023 11:59 PM EST Hospital Encounter Non-Invasive [place] [address] Alirio Esparza MD S/P TAVR (transcatheter aortic [...] Verio test strips Strip USE DAILY 01/03/2022 RawporterTouch Delica Plus Lancet 33 gauge Misc USE [...] 4:15 PM EDT Office Visit Dermatology at [place] [address] [place] [id number] Marek Bonilla MD [address] [place] [address] documented as of this encounter Procedures Procedure [...] EST Narrative 07/08/2023 12:26 PM EST [address] [place] [address] ? Echocardiogram Report Name: ONESIMO THACKER ?Study Date: 07/08/2023 10:31 AMBP: 118/60 mmHg ? Patient Location: : 1955 ? Height: 155 cm ? Account: [id number] Age: 67 yrs ? Weight: 74 kg Gender: Female ?BSA: 1.7 m2 Ordering Physician: ALIRIO ESPARZA Referring Physician: VINOD JUÁREZ Performed By: Felicia Norris RDCS Reason For Study: S/P TAVR Exam Location: [facility]. Interpretation Summary Left ventricular systolic function [...] no significant change (post-procedure). Procedure Limited - 36825. Doppler - 11045. Color Doppler - 83630. Satisfactory quality. This study is limited because [...] Note Lee Kincaid MD - 07/08/2023 [address] [place] [address] Echocardiogram Report Name: ANDREWONESIMO Study Date: 0:31 AMBP: 118/60 mmHg Patient Location: : 1955 Height: 155 cm Account: [id number] Age: 67 yrs Weight: 74 kg Gender: Female BSA: 1.7 m2 Ordering Physician: ALIRIO ESPARZA Referring Physician: VINOD JUÁREZ Performed By: Felicia Norris RDCS Reason For Study: S/P TAVR Exam Location: [facility]. Interpretation Summary Left ventricular systolic function [...] is nosignificant change (post-procedure). Procedure Limited - 67536. Doppler - 28910. Color Doppler - 56526. Satisfactoryquality. This study is limited because of [...] replacement) documented in this encounter Care Teams Shuttle Final Inspector Relationship Specialty Start Date End Date Magdalena Acosta MD [address] [place] [address] PCP - General Family Medicine 02/05/23 documented as of this encounter
--- OUTSIDE RECORDS SUMMARY | 2024-03-30 14:27 | XMS_ITS | Encounter Summary ---
Author Organization [facility] Address [address] [place] [address] Care Team Providers Care Actuarial Intern Name Role Phone Unavailable Primary Care Provider Unavailabl e Encounter Details Date Type Department Care Team (Late st Contact Info) Description 07/08/2010 Results Only [facility] Non-Invasive Cardiology - [facility] [address] [place] [address] Ashley Chavez, WILLIAM [address] [place] [address] Social History Tobacco Use Types Packs/Day Years [...] ? 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 Accession #: ? [id number] ? : ? 1955 (Age: 54) ??F [...] Ashley THOMAS PATHOLOGY ORDERABLES [facility] [address] [place] [address] documented in this encounter Visit Diagnoses Not on filedocumented in this encounter
--- OUTSIDE RECORDS SUMMARY | 2024-03-30 14:27 | XMS_ITS | Encounter Summary ---
Author Organization [facility] [place] [address] Care Team Providers Care Rotary Engraver Name Role Phone Magdalena Acosta MD Primary Care Provider [phone] Encounter Details Date Type Department Care Team (Late st Contact Info) Description 05/27/2023 Refill Cardiology at [address] [id number] Vero Marrero, RN Social History Tobacco Use Types Packs/Day Years Used Date Smoking Tobacco: Never Smokeless Tobacco: Never Alcohol Use Standard Drinks/Week Comments No 0 (1 standard drink = 0.6 oz pur e alcohol) none [facility] Inpatient Questions Answer Date Recorded [...] PM EDT TC to Nurse Sosa at [facility] to relay response from Jay Maza copied below. Nurse Sosa states they will send a new prescription to patient's preferred pharmacy and call the patient with the medication information. No print prescription sent to update med list. May 27, 2023 Jay Maza PA to [place] 05/27/23 2:44 PM OK to change ticagrelor to Clopidogrel. Now, she should be taking ticagrelor 90mg BID. When she switches, she can take ticagrelor, then the next morning, stop ticagrelor, instead take clopidogrel 300mg once, then after that 75mg once daily. Jay Marrero electronic equipment installer Clinic at [facility] [phone] * Telephone Encounter - Vero Marrero RN - 05/27/2023 1:46 PM EDT VM received from triage nurse Sosa at [facility] stating patient was seen today by Dr. [...] possible. Vero Marrero RN Cardiology Clinic at [facility] [phone] documented in this encounter Plan of Treatment Upcoming Encounters Date Type Department Care Team (Late st Contact Info) Description 03/01/2025 4:15 PM EDT Office Visit Dermatology at [place] [address] [place] [phone] Marek Bonilla MD [address] [place] [address] documented as of this encounter Visit Diagnoses Diagnosis Aortic valve stenosis, etiology of cardiac valve disease unspecified documented in this encounter Care Teams Rotary Engraver Relationship Specialty Start Date End Date Magdalena Acosta MD [address] [place] [address] PCP - General Family Medicine 02/05/23 documented as of this encounter
--- OUTSIDE RECORDS SUMMARY | 2024-03-30 14:27 | XMS_ITS | Encounter Summary ---
[place] [address] Care Team Providers Care Clothes Shaker Name Role Phone Magdalena Acosta MD Primary Care Provider [phone] Encounter Details Date Type Department Care Team [...] EDT Office Visit Dermatology at [place] [address] [place] [address] Marek Bonilla MD [address], [place] A DERMATOLOGY [place], [place] [address] documented as of this encounter Visit Diagnoses Not on filedocumented in this encounter Care Teams Clothes Shaker Relationship Specialty Start Date End Date Magdalena Acosta MD [address] [place] [address] PCP - General Family Medicine 02/05/23 documented as of this encounter
--- OUTSIDE RECORDS SUMMARY | 2024-03-30 14:27 | XMS_ITS | Encounter Summary ---
[place] [address] Care Team Providers Care Cleater Name Role Phone Magdalean Acosta MD Primary Care Provider [phone] Encounter Details Date Type Department Care Team [...] 4:15 PM EDT Office Visit Dermatology at [place] [address] [place] [address] Marek Bonilla MD [address], TOD[place] A DERMATOLOGY [place], [place] [id number] documented as of this encounter Visit Diagnoses Not on filedocumented in this encounter Care Teams Cleater Relationship Specialty Start Date End Date Magdalena Acosta MD [address] [place] [address] PCP - General Family Medicine 02/05/23 documented as of this encounter
--- OUTSIDE RECORDS SUMMARY | 2024-03-30 14:27 | XMS_ITS | Encounter Summary ---
Author Organization [facility] [place] [address] Care Team Providers Care Heavy Equipment Supervisor Name Role Phone Magdalena Acosta MD Primary Care Provider [phone] Encounter Details Date Type Department Care Team (Late st Contact Info) Description 12/02/2023 11:15 AM EDT Office [place] [address] Magdalena Peralta MD [facility] [address] [address] [place] [address] Mixed connective tissue disease Social History Tobacco [...] 1:5120 speckled; VIC negative; Myositis panel with FIRST BEATER ab 149.1 (positive); Anti U1RNP IgG 119; [...] list of questions that she sent via [facility] ahead of her visit, which we [...] exposure. She has an appointment with her Scrap Iron Loader scheduled in January. (Dr Bonilla in [place]) ROS (positives in bold): Gen: no fevers, [...] but I encouraged her to contact her Scrap Iron Loader to see if she could have her [...] Dr. Tanisha Peralta MD Rheumatology Fellow Pager: [phone] * Federico Yee MD - 12/02/2023 11:15 [...] 4:15 PM EDT Office Visit Dermatology at [place] [address] [place] [address] Marek Bonilla MD [address] [facility] [place] [address] Scheduled Orders Name Type Priority Associated Diagnoses Orde r Schedule EKG 12 Lead ECG Routine Mixed connective tissue disease Expected: 12/02/2023, Expires: 06/03/2024 documented as of this encounter Visit Diagnoses Diagnosis Mixed connective tissue disease Other specified diffuse disease of connective tissue documented in this encounter Care Teams Heavy Equipment Supervisor Relationship Specialty Start Date End Date Magdalena Acosta MD [address] [place] [address] PCP - General Family Medicine 02/05/23 documented as of this encounter
--- OUTSIDE RECORDS SUMMARY | 2024-03-30 14:27 | XMS_ITS | Encounter Summary ---
Author Organization [facility] [place] [address] Care Team Providers Care Cardiovascular Surgeon Name Role Phone Magdalena Acosta MD Primary Care Provider [phone] Reason for Visit * Reason Comments Aortic Stenosis Coronary Artery Disease Hypertension Encounter Details Date Type Department Care Team (Latest Contact Info) Description 11/16/2023 11:40 AM EDT TH Visit (TeleHealth) Cardiology at [address] [address] Jay Maza PA [facility] [place] [address] Aortic valve stenosis, etiology of cardiac valve disease unspecified; Coronary artery disease, unspecified vessel or lesion type, unspecified whether angina present, unspecified whether [place] or transplanted heart Social History Tobacco Use Types Packs/Day Years Used Date Smoking Tobacco: Never Smokeless Tobacco: Never Alcohol Use Standard Drinks/Week Comments No 0 (1 standard drink = 0.6 oz pur e alcohol) none [facility] Inpatient Questions Answer Date Recorded [...] the original note were not included. [facility] Interventional Cardiology CARDIOLOGY TELE VISIT NOTE 11/16/23 Patient: Purnima Thacker Prior to the initiation of our discussion, the risks and benefits of tele health visits were discussed, and the patient consented verbally to this being a virtual telehealth visit in lieu of an in person office visit. CARDIOLOGISTS: Antelmo Sharma MD ([facility] Cards) Maria Luz Mejia MD ([facility] Cards - [facility]) Problem List: Aortic valve stenosis: prior [...] fraction I35.0 Mild coronary artery disease by [facility] 11/09/2022 I25.10 Heart failure with reduced [...] notable for coronary artery protection given low [id number] distance. There was no obstruction post Valve [...] had a very reassuring recent echo in [facility], in scanned docs. LVEF 55%. Valve [...] leads Confirmed by MD Harshil, Haris Bell ([id number]) on 05/10/2023 8:11:46 AM Cardiac Cath 11/09/2022 [...] in one year. EKATERINA Thompson Time spent: [id number] 0-5min 1364RUH5 6-10min [id number] 11-15min x [id number] 16-20min 1285NLM2 21-30min 9497KTI5 31-40min 3205HJT4 40+ min Jay Maza PA-C Interventional Cardiology [facility] V[facility] Center [facility] Pager [phone] documented in this encounter Plan of Treatment Upcoming Encounters Date Type Department Care Team (Late st Contact Info) Description 03/01/2025 4:15 PM EDT Office Visit Dermatology at [address] [place] [address] Marek Bonilla MD [address] [facility], [place] [address] documented as of this encounter Visit Diagnoses Diagnosis Aortic valve stenosis, etiology of cardiac valve disease unspecified Coronary artery disease, unspecified vessel or lesion type, unspecified whether angina present, unspecified whether [place] or transplanted heart documented in this encounter Care Teams Cardiovascular Surgeon Relationship Specialty Start Date End Date Magdalena Acosta MD [address] [place] [address] PCP - General Family Medicine 02/05/23 documented as of this encounter
--- OUTSIDE RECORDS SUMMARY | 2024-03-30 14:27 | XMS_ITS | Encounter Summary ---
Author Organization [facility] Address [address] [place] [address] Care Team Providers Care Computer Information Systems Instructor Name Role Phone Ashley Chavez Primary Care Provider [phone] Encounter Details Date Type Department Care Team (Late st Contact Info) Description 03/21/2024 Lab Requisition [facility] Pathology & Laboratory Medicine - [address] [address] Outr Resulting Lab, Provider Social History Tobacco [...] 32 - 197 mg/dL 03/22/2024 10:25 EDT [facility] Blood VENOUS BLOOD / Unknown 03/21/2024 13:00 EDT 03/21/2024 21:50 EDT Provider Outr Resulting Lab CHEMISTRY & BLOOD GAS ORDERABLES [facility] [address] [place] [address] documented in this encounter Visit Diagnoses Not on filedocumented in this encounter Care Teams Computer Information Systems Instructor Relationship Specialty Start Date End Date Ashley Chavez ARNP [address] [place] [address] PCP - General 07/11/10 documented as of this encounter
--- OUTSIDE RECORDS SUMMARY | 2024-03-30 14:27 | XMS_ITS | Encounter Summary ---
[place] [address] Care Team Providers Care Final Inspector Shuttle Name Role Phone Magdalena Acosta MD Primary Care Provider [phone] Encounter Details Date Type Department Care Team (Latest Contact Info) Description 07/08/2023 12:35 PM EST Laboratory Appointment Lab [address] [place] [address] S/P TAVR (transcatheter aortic valve [...] 4:15 PM EDT Office Visit Dermatology at [place] [address] [facility] [place] [phone] Marek Bonilla MD [address], [place] [address] (work) documented as of this encounter Procedures [...] 11:56 AM EST) Neutrophil % 73.2 % [facility] Neutrophil Absolute 3.40 1.70 - 6.10 x10(3)/mc L [facility] Lymph % 16.1 % [facility] Lymphocytes Abs 0.8(L) 0.9 - 3.2 x10(3)/mc L [facility] Monocyte % 9.7 % [facility] Monocyte Abs 0.4 0.3 - 0.9 x10(3)/mc L [facility] Eos % 0.4 % [facility] Eosinophils Abs 0.0 0.0 - 0.4 x10(3)/mc L [facility] Basophil % 0.4 % [facility] Baso Absolute 0.0 0.0 - 0.1 x10(3)/mc L [facility] Immature Gran % 0.20 % [facility] Comment: Immature granulocytes(IG's)percentage and absolute count will include metamyelocytes, myelocytes, and promyelocytes. Blood smears from CBCs yielding IG's will be scanned manually for concordance. If this scan disagrees with the automated IG or if promyelocytes are noted, a manual differential will be performed. Immature Gran Absolute 0.01 0.00 - 0.04 x10(3)/mc L [facility] Blood 07/08/2023 11:5 6 AM EST 07/08/2023 12:02 PM EST Narrative Resulting Agency Comment Spec In Lab Minh TOBAR HEMATOLOGY ORDERABLE S [facility] [place] [address] * (ABNORMAL) Hemogram (07/08/2023 11:56 AM EST) White Blood Cell 4.6 4.0 - 9.5 x10(3)/mc L [facility] Red Blood Cell 3.34(L) 4.00 - 5.21 x10(6)/mc L [facility] Hemoglobin 11.0(L) 11.7 - 15.5 g/dL [facility] Hematocrit 33.2(L) 35.7 - 45.8 % [facility] Mean Cell Volume 99.4(H) 82.6 - 94.4 fL [facility] Mean Cell Hemoglobin 32.9(H) 27.1 - 32.0 pg [facility] Mean Cell Hemoglobin Concentration 33.1 31.7 - 35.0 g/dL [facility] Platelet 166 145 - 357 x10(3)/mc L [facility] RDW Standard Deviation 47.1(H) 37.0 - 46.0 fL [facility] RDW coefficient of variation 13.0 11.5 - 14.1 % [facility] Mean Platelet Volume 9.0 7.6 - 12.9 fL [facility] NRBC% auto 0.0 % [facility] NRBC Absolute 0.000 0.000 - 0.000 x10(3)/mc L [facility] Blood 07/08/2023 11:5 6 AM EST 07/08/2023 12:02 PM EST Narrative Resulting Agency Comment Spec In Lab Minh TOBAR HEMATOLOGY ORDERABLE S [facility] [place] [address] * (ABNORMAL) Comprehensive metabolic panel (non-fasting) (07/08/2023 11:56 AM EST) Glucose 93 65 - 199 mg/dL [facility] Comment:Diabetes: >=200 mg/d L plus symptoms Blood Urea Nitrogen 19(H) 8 - 18 mg/dL [facility] Creatinine 0.81 0.70 - 1.20 mg/dL [facility] Sodium 142 135 - 145 mmol/L [facility] Potassium 3.8 3.5 - 5.0 mmol/L [facility] Comment: Please note: ??Patients with WBC >100,000 may have falsely elevated Potassium levels. ??For accurate Potassium quantification in these patients send serum separator tube (gold top) for subsequent determinations. ??Contact the Clinical Chemistry Laboratory if there are any questions. Chloride 104 98 - 107 mmol/L [facility] Carbon Dioxide 26 22 - 31 mmol/L [facility] Anion Gap 12 5 - 15 mmol/L [facility] Calcium 10.2 8.5 - 10.5 mg/dL [facility] Protein, Total 7.4 6.1 - 8.0 g/dL [facility] Albumin 4.1 3.2 - 5.2 g/dL [facility] Aspartate Aminotransferase 24 0 - 30 unit/L [facility] Alanine Aminotransferase 12 0 - 30 unit/L [facility] Alkaline Phosphatase 93 35 - 105 unit/L [facility] Bilirubin, Total 0.3 0.2 - 1.3 mg/dL [facility] Est Glomerular Filtration Rate 80 >=60 mL/min/1. 73 m?? [facility] Comment: This patient's estimated GFR was [...] Lab Alirio Esparza MD CHEMISTRY ORDERABLE S [facility] [place] [address] documented in this encounter Visit Diagnoses Diagnosis S/P TAVR (transcatheter aortic valve replacement) Severe aortic stenosis Aortic valve disorders documented in this encounter Care Teams Final Inspector Shuttle Relationship Specialty Start Date End Date Magdalena Acosta MD [address] [place] [address] PCP - General Family Medicine 02/05/23 documented as of this encounter
--- OUTSIDE RECORDS SUMMARY | 2024-03-30 14:27 | XMS_ITS | Encounter Summary ---
Author Organization [facility] Address [address] [place] [address] Care Team Providers Care Senior Fund Accountant Name Role Phone Ashley Chavez Primary Care Provider [phone] Encounter Details Date Type Department Care Team (Late st Contact Info) Description 12/17/2021 Lab Requisition [facility] Pathology & Laboratory Medicine - [address] [address] Outr Resulting Lab, Provider Social History Tobacco [...] Lyme Ab Negative Negative 12/18/2021 10:37 EDT [facility] Blood VENOUS BLOOD / Unknown 12/17/2021 13:30 EDT 12/17/2021 21:32 EDT Provider Outr Resulting Lab IMMUNOLOGY A ND SEROLOGY ORDERABLES Performing Organization Address [facility] Co de Phone Number [facility] [address] [place] [address] * (ABNORMAL) ANTI NUCLEAR AB (FRANCISCO), IFA (12/17/2021 13:30 EDT) FRANCISCO Interpretation Positive(A) Negative 12/18/2021 16:06 EDT [facility] Comment: For titers greater [...] Pattern 1 1:1280 Speckled 12/18/2021 16:06 EDT [facility] Blood VENOUS BLOOD / Unknown 12/17/2021 13:30 EDT 12/17/2021 21:32 EDT Narrative [facility] - 12/18/2021 16:06 EDT Results were obtained with the INOVA NOVA Lite HEp-2 FRANCISCO Kit by indirect immunofluorescence. Provider Outr Resulting Lab IMMUNOLOGY A ND SEROLOGY ORDERABLES Performing Organization Address [facility] Co de Phone Number [facility] [address] [place] [address] documented in this encounter Visit Diagnoses Not on filedocumented in this encounter Care Teams Senior Fund Accountant Relationship Specialty Start Date End Date Ashley Chavez ARNP [address] [place] [address] PCP - General 07/11/10 documented as of this encounter
--- OUTSIDE RECORDS SUMMARY | 2024-03-30 14:27 | XMS_ITS | Encounter Summary ---
Author Organization [facility] Address [address] [place] [address] Care Team Providers Care Stopboard Assembler Name Role Phone Ashley Chavez Primary Care Provider [phone] Encounter Details Date Type Department Care Team (Latest Contact Info) Description 05/12/2019 13:18 EDT - 05/12/2019 23:59 EDT Hospital Encounter [address] [address] Unknown, Provider, Discharge Disposition: Home or Self [...] on filedocumented in this encounter Care Teams Stopboard Assembler Relationship Specialty Start Date End Date Ashley Chavez ARNP [address] [place] [address] PCP - General 07/11/10 documented as of this encounter
--- OUTSIDE RECORDS SUMMARY | 2024-03-30 14:27 | XMS_ITS | Encounter Summary ---
[place] [address] Care Team Providers Care Teacher Advisor Name Role Phone Magdalena Acosta MD Primary Care Provider [phone] Reason for Visit * Reason Comments Annual Exam Encounter Details Date Type Department Care Team (Late st Contact Info) Description 02/22/2024 4:15 PM EDT Office Visit Dermatology at [address] [phone] Marek Bonilla MD [address] [facility] A DERMATOLOGY [place], [place] [phone] Seborrheic keratosis; Rosacea; Nevus Social History Tobacco [...] cutaneous and ocular 3. Previously told by deli bakery clerk that she had corneal tears from [...] 4:15 PM EDT Office Visit Dermatology at [place] [address] [place] [address] Marek Bonilla MD [address] [facility] [place] [address] documented as of this encounter Visit Diagnoses Diagnosis Seborrheic keratosis Other seborrheic keratosis Rosacea Nevus Benign neoplasm of skin, site unspecified documented in this encounter Care Teams Teacher Advisor Relationship Specialty Start Date End Date Magdalena Acosta MD [address] [place] [address] PCP - General Family Medicine 02/05/23 documented as of this encounter
--- OUTSIDE RECORDS SUMMARY | 2024-03-30 14:27 | XMS_ITS | Encounter Summary ---
Author Organization [facility] Address [address] [place] [address] Care Team Providers Care Acid Tank Cleaner Name Role Phone Unavailable Primary Care Provider Unavailabl e Encounter Details Date Type Department Care Team (Late st Contact Info) Description 03/24/2007 11:06 EDT - 03/24/2007 11:59 EDT Hospital Encounter [facility] - Other [address] [place] [address] Ashley Chavez ARNP [address] [place] [address] Discharge Disposition: Home or Self Care Social [...]
--- OUTSIDE RECORDS SUMMARY | 2024-03-30 14:27 | XMS_ITS | Encounter Summary ---
[place] [address] Care Team Providers Care Polisher Hand Name Role Phone Magdalena Acosta MD Primary Care Provider [phone] Reason for Visit * Reason Onset Date Comments Pre Procedure Call 03/01/2024 DAPT hold for EGD and colo? Encounter Details Date Type Department Care Team (Late st Contact Info) Description 03/01/2024 Telephone Cardiology at [address] [phone] Cynthia Monsalve RN Pre Procedure Call (DAPT [...] as safe. Jay Message above left with Yeinfer (nurse practitioner physician assistant), who would be leaving this note in patient's chart for providers to schedule patient. No further questions or needs at this time. This nurse stated, note will be placed regarding this call in our chart for patient. Kezia Whitney RN, BSN Ambulatory Cardiology [facility], [facility] [phone] * Telephone Encounter - Cynthia Monsalve RN - 03/01/2024 2:09 PM EDT Nurse Veronica from [facility] called, requesting a hold on ASA and/or Plavix for the patient's anticipated EGD and colonoscopy. -Cynthia Monsalve RN documented in this encounter Plan of Treatment Upcoming Encounters Date Type Department Care Team (Late st Contact Info) Description 03/01/2025 4:15 PM EDT Office Visit Dermatology at [place] [address] [place] [phone] Marek Bonilla MD [address] [place] [address] documented as of this encounter Visit Diagnoses Not on filedocumented in this encounter Care Teams Polisher Hand Relationship Specialty Start Date End Date Magdalena Acosta MD [address] [place] [address] PCP - General Family Medicine 02/05/23 documented as of this encounter
--- OUTSIDE RECORDS SUMMARY | 2024-03-30 14:27 | XMS_ITS | Referral Summary ---
Author Organization [facility] Address [address] [place] [address] Care Team Providers Care Laundry Folder Name Role Phone Ashley Chavez Primary Care Provider [phone] Encounters Date Type Department Care Team Description 03/22/2024 Lab Requisition [facility] Pathology & Laboratory [address] [address] Consuelo Guerrero, DO Diaphragmatic hernia without obstruction or gangrene; Anemia, unspecified 03/21/2024 Lab Requisition [facility] Pathology & Laboratory [address] [address] Consuelo Guerrero DO Encounter for other general examination 03/21/2024 Lab Requisition [facility] Pathology & Laboratory [address] [address] Outr Resulting Lab, Provider from Last 3 [...] 13:00 EDT) LORY Negative 03/21/2024 22:31 EDT [facility] Blood VENOUS BLOOD / Unknown 03/21/2024 13:00 EDT 03/21/2024 21:51 EDT Consuelo Guerrero DO BLOOD BANK TESTS Performing Organization Address [facility] [address] [facility] Co de Phone Number [facility]ANK [address] [place] [address] * HAPTOGLOBIN (03/21/2024 13:00 EDT) Haptoglobin 183 32 - 197 mg/dL 03/22/2024 10:25 EDT [facility] Blood VENOUS BLOOD / Unknown 03/21/2024 13:00 EDT 03/21/2024 21:50 EDT Provider Outr Resulting Lab CHEMISTRY & BLOOD GAS ORDERABLES Performing Organization Address [facility] [address]/[facility] Co de Phone Number [facility] [address] [place] [address] * SURGICAL PATHOLOGY (03/21/2024 11:35 EDT) Note to Patient The following pathology results have been interpreted by your pathologist and may be available to you before your health provider has had the opportunity to review them. Please allow time for your provider to receive these results and explore management options, if applicable. 03/24/2024 10:36 EDT [facility] Final Diagnosis A. [...] - Deeper sections x3 examined. 03/24/2024 10:36 [facility] Attestation There was significant resident/fellow involvement in the diagnostic evaluation of this case. By the signature below, the attending physician certifies that they have personally conducted a gross and/or microscopic examination of the described specimens and rendered or confirmed the above diagnosis. 03/24/2024 10:36 [facility] at [address] Clinical History Anemia, hiatal hernia, 38 cm aguayo diverticulosis 03/24/2024 10:36 [facility] Gross Description A. Received [...] Luis Torres 03/22/2024 9:36 03/24/2024 10:36 EDT [facility] Resident/Estuardo w: Luis Felipe Bragg DO 03/24/2024 10:36 EDT [facility] Performing Lab [facility] 10:36 EDT [facility] Scanned Images 03/24/2024 10:36 EDT [facility] Tissue POLYP OF [...] 8:19 EDT Consuelo Guerrero DO PATHOLOGY ORDERABLES [facility] [address] [place] [address] from Last 3 Months Care Teams Laundry Folder Relationship Specialty Start Date End Date Ashley Chavez ARNP [address] [place] [address] PCP - General 07/11/10
--- OUTSIDE RECORDS SUMMARY | 2024-03-30 14:27 | XMS_ITS | Encounter Summary ---
Author Organization [facility] Address [address] [place] [address] Care Team Providers Care Glue Drier Operator Name Role Phone Unavailable Primary Care Provider Unavailabl e Encounter Details Date Type Department Care Team (Late st Contact Info) Description 03/24/[address] [facility] Non-Invasive Cardiology - [facility] [address] [place], [place] [address] Ashley Chavez ARNP [address] [place] [address] Social History Tobacco Use Types Packs/Day Years [...] ? 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 Accession #: ? [id number] : ? 1955 (Age: 51) ??F ?Collect Date: ? 03/24/2007 Location: ? [facility] ? Receive Date: ? 03/28/2007 Provider: ?ASHLEY THOMAS Copy to: ? Specimen/Source: ?ThinPrep Pap Test, Endocervix, processed on LiveU ThinPrep Imaging System, with manual evaluation Last [...] Ashley THOMAS PATHOLOGY ORDERABLES PAUL ARELLANO [address] [place] [address] documented in this encounter Visit Diagnoses Not on filedocumented in this encounter
--- OUTSIDE RECORDS SUMMARY | 2024-03-30 14:27 | XMS_ITS | Encounter Summary ---
Author Organization [facility] Address [address] [place] [address] Care Team Providers Care Recreation Attendant Name Role Phone Ashley Chavez Primary Care Provider [phone] Encounter Details Date Type Department Care Team (Late st Contact Info) Description 10/30/2022 Lab Requisition [facility] Pathology & Laboratory Medicine - [address] [address] Outr Resulting Lab, Provider Social History Tobacco [...] Stranded) <12.3 <30.0 IU/mL 11/03/2022 13:08 EDT [facility] Comment: ? Negative: ??<30.0 IU/mL ? Borderline Positive: ??30.0 - 75.0 IU/mL ? Positive: ??>75.0 IU/mL Results were obtained with the INOVA QUANTA Lite dsDNA SC DOMO assay on the [employer]co DSX. Blood VENOUS BLOOD / Unknown 10/29/2022 14:00 EDT 10/30/2022 19:27 EDT Provider Outr Resulting Lab IMMUNOLOGY A ND SEROLOGY ORDERABLES Performing Organization Address [facility] de Phone Number [facility] [address] [place] [address] * SM ([place]) ANTIBODY (10/29/2022 14:00 EDT) [facility] SM ([place]) Antibody 18.5 <20.0 Units 11/03/2022 14:26 EDT [facility] [...] ND SEROLOGY ORDERABLES Performing Organization Address [facility] de Phone Number [facility] [address] [place] [address] documented in this encounter Visit Diagnoses Not on filedocumented in this encounter Care Teams Recreation Attendant Relationship Specialty Start Date End Date Ashley Chavez ARNP [address] [place] [address] PCP - General 07/11/10 documented as of this encounter
--- OUTSIDE RECORDS SUMMARY | 2024-03-30 14:27 | XMS_ITS | Encounter Summary ---
Author Organization [facility] Address [address] [place] [address] Care Team Providers Care Weapons Designer Name Role Phone Ashley Chavez Primary Care Provider Encounter Details Date Type Department Care Team (Late st Contact Info) Description 05/12/2022 Lab Requisition [facility] Pathology & Laboratory Medicine - [address] [id number] Outr Resulting Lab, Provider Social History Tobacco [...] 14:32 EDT) Hold Hold 05/12/2022 22:46 EDT [facility] Blood VENOUS BLOOD / Unknown 05/12/2022 14:32 EDT 05/12/2022 21:40 EDT Provider Outr Resulting Lab LAB INFO SER VICE AND SUPPORT & PHONE RESULT Performing Organization Address [facility]/ZIP Co de Phone Number [facility] [address] [place] [address] * (ABNORMAL) HOMOCYSTEINE (05/12/2022 14:32 EDT) Homocysteine 14.7(H) 5.0 - 13.9 umol/L 05/13/2022 9:05 EDT [facility] Comment:Results may be false ly elevated if sample is not collected on ice or is not removed from cells within 1 hour of collection. Blood VENOUS BLOOD / Unknown 05/12/2022 14:32 EDT 05/12/2022 21:40 EDT Narrative [facility] - 05/13/2022 9:05 EDT [...] & BLOOD GAS ORDERABLES Performing Organization Address [facility] Co de Phone Number [facility] [address] [place] [address] * HAPTOGLOBIN (05/12/2022 14:32 EDT) Pathologist [facility] Haptoglobin 138 32 - 197 mg/dL 05/13/2022 9:55 EDT [facility] Blood VENOUS BLOOD / Unknown 05/12/2022 14:32 EDT 05/12/2022 21:36 EDT Provider Outr Resulting Lab CHEMISTRY & BLOOD GAS ORDERABLES Performing Organization Address [facility] Co de Phone Number [facility] [address] [place] [address] * (ABNORMAL) ANTI NUCLEAR AB (FRANCISCO), IFA (05/12/2022 14:32 EDT) FRANCISCO Interpretation Positive(A) Negative 05/13/2022 14:44 EDT [facility] Comment: Result is equal to or greater than 1:5120. For titers greater than or equal to 1:160 (except the centromere, nucleolar, and dense fine speckled patterns) it is recommended that specific, follow-up autoantibody testing (such as for dsDNA and Extractable Nuclear Antigens) be performed on all diffuse and/or speckled patterns. FRANCISCO Titer and Pattern 1 1:5120 Speckled 05/13/2022 14:44 EDT [facility] Blood VENOUS BLOOD / Unknown 05/12/2022 14:32 EDT 05/12/2022 21:36 EDT Narrative [facility] - 05/13/2022 14:44 EDT Results were obtained with the INOVA NOVA Lite HEp-2 FRANCISCO Kit by indirect immunofluorescence. Provider Outr Resulting Lab IMMUNOLOGY A ND SEROLOGY ORDERABLES [facility] [address] [place] [address] documented in this encounter Visit Diagnoses Not on filedocumented in this encounter Care Teams Weapons Designer Relationship Specialty Start Date End Date Ashley Chavez ARNP [address] [place] [address] PCP - General 07/11/10 documented as of this encounter
--- OUTSIDE RECORDS SUMMARY | 2024-03-30 14:27 | XMS_ITS | Encounter Summary ---
Author Organization [facility] [place] [address] Care Team Providers Care Linux Unix System Administrator Name Role Phone Magdalena Acosta MD Primary Care Provider [phone] Encounter Details Date Type Department Care Team (Late st Contact Info) Description 07/08/2023 10:15 AM EST Office Visit Cardiology at [address] [id number] Severe aortic stenosis Social History Tobacco Use Types Packs/Day Years Used Date Smoking Tobacco: Never Smokeless Tobacco: Never Alcohol Use Standard Drinks/Week Comments No 0 (1 standard drink = 0.6 oz pur e alcohol) none [facility] Inpatient Questions Answer Date Recorded Does [...] 4:15 PM EDT Office Visit Dermatology at [place] [address] [place] [address] Marek Bonilla MD [address], [place] [address] documented as of this encounter Procedures Procedure [...] (Bezet) 449 ms MUSE SYSTEM Calculated P [place] 66 degrees MUSE SYSTEM Calculated R [place] 60 degrees MUSE SYSTEM Calculated T [place] 53 degrees MUSE SYSTEM INTERPRETATION Normal sinus rhythm Minimal voltage criteria for LVH, may be normal variant ( Sokolow-Orozco ) ST & T wave abnormality, consider lateral ischemia ??vs. repolarization abnormality from LVH Abnormal ECG When compared with ECG of 13-MAY-2023 09:22, Premature ventricular complexes are no longer Present Minimal criteria for Septal infarct are no longer Present Confirmed by Maxx Best ([id number]) on 07/09/2023 10:07:22 AM MUSE SYSTEM 07/08/2023 10:2 7 AM EST 07/09/2023 10:07 AM EST Brody Kaplan APRN ECG ORDERABLES MUSE SYSTEM documented in this encounter Visit Diagnoses Diagnosis Severe aortic stenosis Aortic valve disorders documented in this encounter Care Teams Linux Unix System Administrator Relationship Specialty Start Date End Date Magdalena Acosta MD [address] [place] [id number] PCP - General Family Medicine 02/05/23 documented as of this encounter
--- OUTSIDE RECORDS SUMMARY | 2024-03-30 14:27 | XMS_ITS | Encounter Summary ---
[place] [address] Care Team Providers Care Surgery Manager Name Role Phone Magdalena Acosta MD [...] 4:15 PM EDT Office Visit Dermatology at [place] [address] [place] [address] Marek Bonilla MD [address], [place]ERMATOLOGY [place], [place] [id number] documented as of this encounter Visit Diagnoses Not on filedocumented in this encounter Care Teams Surgery Manager Relationship Specialty Start Date End Date Magdalena Acosta MD [address] [place] [address] PCP - General Family Medicine 02/05/23 documented as of this encounter
--- OUTSIDE RECORDS SUMMARY | 2024-03-30 14:27 | XMS_ITS | Encounter Summary ---
Author Organization [facility] Address [address] [place] [address] Care Team Providers Care Receptionist Telephone Operator Name Role Phone Scott Ashley WILLIAM Primary Care Provider [phone] Encounter Details Date Type Department Care Team (Late st Contact Info) Description 05/12/2019 Results Only [facility] [phone] Nadira Gregorio MD [address] [place] [phone] Social History Tobacco Use Types Packs/Day [...] ? 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 Accession #: ? [id number] ? : ? 1955 (Age: 63) ??F ? Collect Date: ? 05/12/2019 ? Location: ? [facility] ? Receive Date: ? 05/12/2019 ? Provider: NADIRA GREGORIO MD Copy to: WINTER HANKINS TAX EVALUATOR ? Final Pathologic Diagnosis: COLON, CECUM, POLYP, [...] (ASCP) 05/12/2019 6:08 PM End of Report [facility] 05/12/2019 16:0 3 EDT 05/12/2019 16:03 EDT Nadira Gregorio MD PATHOLOGY ORDERABLES [facility] [address] [place] [address] documented in this encounter Visit Diagnoses Not on filedocumented in this encounter Care Teams Receptionist Telephone Operator Relationship Specialty Start Date End Date Ashley Chavez ARNP [address] [place] [address] PCP - General 07/11/10 documented as of this encounter
--- OUTSIDE RECORDS SUMMARY | 2024-03-30 14:27 | XMS_ITS | Encounter Summary ---
[place] [address] Care Team Providers Care Tax Director Name Role Phone Magdalena Acosta MD Primary Care Provider [phone] Encounter Details Date Type Department Care Team (Latest Contact Info) Description 10/05/2023 10:52 AM EST - 10/05/2023 11:59 PM [facility] [place] [address] Mixed connective tissue disease Discharge Disposition: Home Social History Tobacco Use Types Packs/Day Years Used Date Smoking Tobacco: Never Smokeless Tobacco: Never Alcohol Use Standard Drinks/Week Comments No 0 (1 standard drink = 0.6 oz pur e alcohol) none [facility] Inpatient Questions Answer Date Recorded [...] 4:15 PM EDT Office Visit Dermatology at [place] [address] [place] [address] Marek Bonilla MD [address], [place] [address] documented as of this encounter Procedures Procedure [...] PFT FEV1/FVC Pre-BD Z-Score 0 COMPAS PFT PBK03-32 Actual Pre-BD 2.41 % COMPAS PFT QNT67-13 Predicted 1.8 % COMPAS PFT NYF19-57 Pre-BD % of Predicted 134 % COMPAS PFT HHJ06-79 Pre-BD Z-Score 0.81 COMPAS PFT DLCO Hb [...] tissue documented in this encounter Care Teams Tax Director Relationship Specialty Start Date End Date Magdalena Acosta MD [address] [place] [address] PCP - General Family Medicine 02/05/23 documented as of this encounter
--- OUTSIDE RECORDS SUMMARY | 2024-03-30 14:27 | XMS_ITS | Encounter Summary ---
Author Organization [facility] Address [address] [place] [address] Care Team Providers Care Operational Risk Consultant Name Role Phone Scott Ashley WILLIAM Primary Care Provider [phone] Encounter Details Date Type Department Care Team (Late st Contact Info) Description 11/10/2013 Results Only [facility] [phone] Jeni Laird, DROP MAN [address] [place], [place] [id number] Social History Tobacco Use Types Packs/Day Years [...] ? 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 Accession #: ? [id number] : ? 1955 (Age: 58) ??F ?Collect Date: ? 11/10/2013 Location: ? [facility] ? Receive Date: ? 11/14/2013 Provider: ?JENI LAIRD DROP MAN Copy to: ? Specimen/Source: ?Pap Test, Endocervix, [...] Report PAUL ARELLANO 11/10/2013 11/14/2013 Jeni Laird DROP MAN PATHOLOGY ORDERAB LES Performing Organization Address City/State/[facility] Co de Phone Number PAUL ARELLANO [address] [place] [address] documented in this encounter Visit Diagnoses Not on filedocumented in this encounter Care Teams Operational Risk Consultant Relationship Specialty Start Date End Date Ashley Chavez ARNP [address] [place] [address] PCP - General 07/11/10 documented as of this encounter
[2024-03-30 14:28] VITALS: BP 111/58; PULSE 73
--- OUTSIDE RECORDS SUMMARY | 2024-03-30 14:28 | XMS_ITS | Encounter Summary ---
[place] [address] Care Team Providers Care Forming Department Supervisor Name Role Phone Magdalena Acosta MD Primary Care Provider [phone] Encounter Details Date Type Department Care Team [...] EDT Office Visit Dermatology at [place] [address] [place] [address] Marek Bonilla MD [address], [place] A DERMATOLOGY [place], [place] [id number] documented as of this encounter Visit Diagnoses Not on filedocumented in this encounter Care Teams Forming Department Supervisor Relationship Specialty Start Date End Date Magdalena Acosta MD [address] [place] [address] PCP - General Family Medicine 02/05/23 documented as of this encounter
--- OUTSIDE RECORDS SUMMARY | 2024-03-30 14:28 | XMS_ITS | Encounter Summary ---
Author Organization [facility] Address [facility] [place] [address] Care Team Providers Care Tip Puncher Name Role Phone Magdalena Acosta MD Primary Care Provider [phone] Reason for Referral * Diagnostic Test (Routine) - Closed Specialty Diagnoses / Procedures Referred By Contac t Referred To Contact Cardiology Diagnoses S/P TAVR (transcatheter aortic valve replacement) Procedures Echocardiogram Transthoracic Vinod Juárez PA [facility] [place] [address] [facility] [place] [address] Referral ID Status Reason Start Date Expiration Date V isits Requested Visits Authorized [id number] Closed Specialty Service Requested 05/22/2023 05/21/2024 1 1 * Home Health Care (Routine) - Closed Specialty Diagnoses / Procedures Referred By Contac t Referred To Contact Diagnoses S/P TAVR (transcatheter aortic valve replacement) Alirio Hudson MD [facility] CARDIOTHORACIC SURGERY [address] [facility] & [address] [place] [address] Referral ID Status Reason Start Date Expiration Date V isits Requested Visits Authorized [id number] Closed Consult, Test & Treat 05/22/2023 11/18/2023 999 999 * Consultation (Routine) - Closed Specialty Diagnoses / Procedures Referred By Crispin maxwell Referred To Contact Cardiology Diagnoses S/P TAVR (transcatheter aortic valve replacement) Alirio Hudson MD [facility] [place] [address] Cardiac Rehab, [address] [place] [address] Referral ID Status Reason Start Date Expiration Date V isits Requested Visits Authorized [id number] Closed Consult, Test & Treat 05/22/2023 11/18/2023 36 36 * Diagnostic Test (Routine) - Closed Specialty Diagnoses / Procedures Referred By Crispin maxwell Referred To Contact Cardiology Diagnoses Aortic valve stenosis, etiology of cardiac valve disease unspecified Procedures Echocardiogram Transthoracic Transesophageal Echocardiogram (YUSRA) Radha Hollins MD [facility] [place] [address] [facility] [place] [address] Referral ID Status Reason Start Date Expiration Date V isits Requested Visits Authorized [id number] Closed Specialty Service Requested 05/11/2023 05/10/2024 1 1 Reason for Visit * Auth/Cert (Routine) Specialty Diagnoses / Procedures Referred By Crispin maxwell Referred To Contact Diagnoses Symptomatic severe aortic stenosis with low ejection fraction NSTEMI, CHF Enrique Chua MD [facility] [place] [address] [facility] Referral ID Status Reason Start Date Expiration Date Visits Re quested Visits Authorized [id number] 1 1 Encounter Details Date Type Department Care Team (Latest Contact Info) Description 05/08/2023 9:14 AM EDT - 05/22/2023 10:46 AM EDT Hospital Encounter Heart and Vascular Unit Level 4 [place] [address] Enrique Chua MD [facility] [place] [address] Juan Luis Gonzalez MD [facility] [place] [address] Radha Hollins MD [facility] [place] [address] Alirio Hudson MD S/P TAVR (transcatheter aortic valve replacement) (Primary Dx); Aortic valve stenosis, etiology of cardiac valve disease unspecified; Symptomatic severe aortic stenosis with low ejection fraction; Heart failure with reduced ejection fraction due to heart valve disease; Mild coronary artery disease by [facility] 11/09/2022; Mixed connective tissue disease; Neck [...] Patient Age: 67 y.o. Birthdate: 1955 Language: Bulgarian Race: White Ethnicity: Not nor Admit Date: 05/08/2023 Discharge Date: 05/22/2023 Attending Physician: Alirio Hudson MD Follow-up Recommendations for Providers: Please continue routine management of cardiovascular risk factors including blood pressure, lipids,glucose, etc. Please note any medication changes. Patient to follow up with PCP, Magdalena Acosta MD, or Primary School Health Assistant, Avis Mejia MD, in ~ 7-10 days. Patient to follow up with Manager Graphic, Dr. Antelmo Sharma, in 2 weeks with an EKG, Echo, CBC, and CMP. Patient to follow up with Nephrology, their office to arrange. Muwq-Ctsshp-la interval: After initial 30 day follow-up appointment , all TAVR patients will follow-up again in one year with an echo. Inpatient Provider Contact Information: [facility] Section of Cardiac Surgery [facility] [address] FAX [phone] Discharge Diagnoses (Hospital Problems) Primary Diagnoses: Prosthetic [...] Tube Placement Right 05/18/2023 Laure Ricks PA [facility] INTERVENTIONL RAD PRG CATH PLMT LEFT HEART CATH & ARTS W/INJ & ANGIO IMG S&I N/A 11/09/2022 CORONARY ANGIOGRAPHY; W [facility],POSSIBLE PCI (WRVU 5.6) performed by Mario Alberto Escobedo MD at [facility] CATH LABS PRG COMBINED RIGHT & LEFT HEART CATH W/INJ L VENTRICULOGRAPHY, IMG S&I N/A 05/12/2023 COMBINED RIGHT & LEFT HEART CATH,INC INJ FOR L VENTRICULOGRAPHY (WRVU 5.99) performed by Antelmo Sharma MD at [facility] CATH LABS PRO AORTOPLAS FOR SUPRAVALV STEN N/A 09/21/2016 @AORTOPLASTY FOR SUPRAVALVULAR STENOSIS (WRVU 29.33) performed by Alirio Hudson MD at [facility] MAIN OR PRO REPLACE AORTIC VALVE (TAVR/FEDERICO)PERC FEMORAL ARTERY APPROACH 05/12/2023 @TRANSCATHETER AORTIC VALVE REPLACEMENT (TAVR), PERCUTANEOUS FEMORAL (WRVU 22.47) performed by Alirio Hudson MD at [facility] CATH LABS PRO REPLACEMENT PROSTHETIC AORTIC VALVE OPEN W CARDIOPULMONARY BYPASS HOMOGRF/STENT N/A 09/21/2016 @REPLACE AORTIC VALVE, OPEN, W\CPB, W\PROSTHETIC VALVE (WRVU 41.32) performed by Alirio Hudson MD at [facility] MAIN OR Prior To Admission Medications Medications [...] Major Procedures/Operations: 05/12/23: Successful right transfemoral TAVR Ymtpt-aj-Jmser with a 23 mm Lai 3 THV. Left coronary protection with left main MINNA. Hospital Course: #Severe prosthetic s/p valve in valve TF TAVR #Low coronary heights s/p left main stent for coronary protection #Type 2 NSTEMI, present on arrival, resolved #Acute decompensated HFrEF #Cardiogenic shock #EVANS / Cardiorenal syndrome Purnima Thacker was admitted to [facility] on 05/08/2023 via the Cardiology [...] and she was brought to the clinical lab clerk the following morning where Drs. Alirio Hudson [...] if you have questions. Please call your Manager Graphic's office if you have any discharge or drainage from your procedural sites. Your Manager Graphic, Dr. Antelmo Sharma and/or the Light Rail Operator may be reached at . Antibiotic prophylaxis: You will need to take antibiotics prior to many invasive tests and treatments, such as dental cleaning, which should be done every 6 months. Your primary care physician or your dentist can prescribe this medication. Please refer to the card with the [place] [employer] Guidelines for more information. You have been provided with a copy of this card. Please refer to the [place] [employer] Guidelines for more information. Good [...] friends, go to a movie, go to moravian, etc. Heavy activities: No hunting, skiing, jogging, [...] should resume a low fat, low cholesterol, [place] [employer] Diet Driving: No restrictions. Shower/Bath: You may shower daily. No baths, soaking, or swimming for the first week. Wound care: Wash the sites daily with soap and rinse well, pat dry. Assess for any signs of infection such as increased redness, pain, warmth or drainage. Please call your casino cage cashier's office if you have any discharge or drainage from your procedural sites. If there is a lot of swelling, apply mamta wraps during the day and remove at bedtime. Elevate your legs when you are sitting. Home oxygen therapy: N/A Follow up appointments: Please schedule a follow-up appointment with your PCP, Magdalena Acosta MD, or Primary School Health Assistant in ~ 7-10 days. You have a follow-up appointment with your Manager Graphic, Dr. Antelmo Sharma, in 2 weeks with an EKG, Echo, and labs prior to your appointment. You will need follow-up with Nephrology, their office will arrange. Apho-Nnmjjm-uv interval: After initial 30 day follow-up appointment , all TAVR patients will follow-up again in one year with an echo. Cardiac Rehabilitation: Purnima Thacker was seen today regarding participation in the outpatient Phase 2 Cardiac Rehabilitation at [facility]. The patient agrees to a referral to this program. The referral will be sent at discharge and the patient should be contacted by the Program within 1- 2 weeks from discharge. Future Appointments and Orders Future Appointments and Orders Future Appointments Provider Department Dept Phone 07/29/2023 11:00 AM Magdalena Peralta MD Rheumatology at [facility] Arrive at: [place] [facility] [address] [phone] 02/11/2024 2:00 PM Marek Bonilla MD Dermatology at [place] Arrive at: [facility] [address] [phone] Future Orders Complete By Expires Type and Screen Future Surgery, [facility] SAME DAY PROGRAM ONLY) [[id number] Custom] 05/11/2023 Process Instructions: This test is intended ONLY for patients with upcoming surgery for testing prior to the day of surgery obtained through the same day program (4V or SDP). For ALL OTHER PATIENTS, order a Type and Screen ([id number]) This order includes the physician order for an ABO Recheck if requested by the Blood Bank. Scheduling Instructions: Comments: Questions: Date of surgery: CBC (with Diff) [[id number] Custom] 06/05/2023 12/05/2023 Process Instructions: INCLUDES: WBC, RBC, Hgb, Hct, Platelets, RBC Indices and Differential Scheduling Instructions: Comments: Questions: Comprehensive metabolic panel (non-fasting) [LAB17 Custom] 06/05/2023 08/20/2023 Process Instructions: INCLUDES: Calcium, T Protein, Albumin, AST, ALT, Alk Phos, T Bili, BUN, Creat, GFR, Glucose, Lytes. Scheduling Instructions: Comments: Questions: Echocardiogram Transthoracic [30449 CPT(R)] 06/05/2023 12/05/2023 Process Instructions: Scheduling Instructions: Questions: Where will study be performed?: [facility] Clinics Does the patient have Congenital Heart Disease?: Does patient require sedation?: GA rationale: EKG 12 Lead [38672 CPT(R)] 06/05/2023 12/05/2023 Process Instructions: Scheduling Instructions: Questions: Which location will this be performed?: [place] Is a rhythm strip needed?: No [facility] Devices [EQ161 Custom] As directed Process Instructions: Scheduling Instructions: Questions: Device Needed: WALKER (E0143) Patient Height (cm): 154.9 cm (5' 0.98) Patient Weight: 75.4 kg (166 lb 3.2 oz) Diagnosis: Unsteady gait when walking Referral to Cardiac Rehab [FDP735 Custom] As directed Process Instructions: If no progress note charted, please enter Clinical details in comments. Scheduling Instructions: Questions: My question or request is: s/p TAVR. Cardiac rehab at [facility]. Referral to Home Health [REF34 Custom] As directed Process Instructions: If no progress note charted, please enter Clinical details in comments. Scheduling Instructions: Comments: DOCUMENTATION FOR VNA SERVICES PATIENT'S LOCATION: Purnima Thacker [address] [place] [phone] (home) Skiver Machine's Name: Self and brother Raymond In discussion with the attending physician, it is certified that this patient is under his/her careand that MD, or an MARINE FIRE FIGHTER, CONSTRUCTION PROJECT MANAGER, or PA who is working directly with him/her, had a occr-ng-akkl encounter that meets the physician pdtc-oo-splv encounter requirements with this patient on 05/22/2023. [...] for managing ADLs. HOME HEALTH CARE AGENCY: [facility]. [address] [place] [address] PHONE: [phone] FAX: [phone] Start of care: Ideally 24-48 hours after [...] Magdalena Acosta MD [address] / [facility] [address] All VNA agencies which cover the area of patient's residence have been reviewed, either verbally joao writing, and patient has chosen the home health care agency noted. Questions: Disciplines Requested: Physical Therapy Occupational Therapy Discharge References/Attachments None Arrangements for VNA/home care: As above. (delete if no VNA) Signed: EKATERINA NAVARRETE [facility] Section of Cardiac Surgery Date: 05/22/2023 CC: Magdalena Acosta MD Cross RoadsMario Alberto MD [address] [place] [address] documented in this encounter Discharge Instructions * Patient Instructions* Vinod Juárez PA - 05/22/2023 9:32 AM EDT TAVR Discharge Instructions: Call your doctor if: You have a fever of greater than 101 degrees, shaking chills, if you develop redness or drainage from your procedure sites, or if you have questions. Please call your Manager Graphic's office if you have any discharge or drainage from your procedural sites. Your Manager Graphic, Dr. Antelmo Sharma and/or the Light Rail Operator may be reached at . Antibiotic prophylaxis: You will need to take antibiotics prior to many invasive tests and treatments, such as dental cleaning, which should be done every 6 months. Your primary care physician or your dentist can prescribe this medication. Please refer to the card with the [place] [employer] Guidelines for more information. You have been provided with a copy of this card. Please refer to the [place] [employer] Guidelines for more information. Good [...] friends, go to a movie, go to moravian, etc. Heavy activities: No hunting, skiing, jogging, [...] should resume a low fat, low cholesterol, [place] [employer] Diet Driving: No restrictions. Shower/Bath: You may shower daily. No baths, soaking, or swimming for the first week. Wound care: Wash the sites daily with soap and rinse well, pat dry. Assess for any signs of infection such as increased redness, pain, warmth or drainage. Please call your casino cage cashier's office if you have any discharge or drainage from your procedural sites. If there is a lot of swelling, apply mamta wraps during the day and remove at bedtime. Elevate your legs when you are sitting. Home oxygen therapy: N/A Follow up appointments: Please schedule a follow-up appointment with your PCP, Magdalena Acosta MD, or Primary School Health Assistant in ~ 7-10 days. You have a follow-up appointment with your Manager Graphic, Dr. Antelmo Sharma, in 2 weeks with an EKG, Echo, and labs prior to your appointment. You will need follow-up with Nephrology, their office will arrange. Xltw-Bzmzfp-ar interval: After initial 30 day follow-up appointment , all TAVR patients will follow-up again in one year with an echo. Cardiac Rehabilitation: Purnima Thacker was seen today regarding participation in the outpatient Phase 2 Cardiac Rehabilitation at [facility]. The patient agrees to a referral [...] ins ( tef) Haven Ba, PT Pager: [phone] Physical Therapy Inpatient Rehabilitation Department * Nico [...] 0600 and on the weekends please page [phone]. * Jory Paniagua - 05/20/2023 3:52 PM [...] vomiting Last Bowel Movement: 05/20/23 Jory Paniagua Skin Grader * Rashid Tong, OT - 05/20/2023 3:16 [...] Tube Placement Right 05/18/2023 Laure Ricks PA [facility] INTERVENTIONL RAD PRG CATH PLMT LEFT HEART CATH & ARTS W/INJ & ANGIO IMG S&I N/A 11/09/2022 CORONARY ANGIOGRAPHY; W [facility],POSSIBLE PCI (WRVU 5.6) performed by Mario Alberto Escobedo MD at [facility] CATH LABS PRG COMBINED RIGHT & LEFT HEART CATH W/INJ L VENTRICULOGRAPHY, IMG S&I N/A 05/12/2023 COMBINED RIGHT & LEFT HEART CATH,INC INJ FOR L VENTRICULOGRAPHY (WRVU 5.99) performed by Antelmo Sharma MD at [facility] CATH LABS PRO AORTOPLAS FOR SUPRAVALV STEN N/A 09/21/2016 @AORTOPLASTY FOR SUPRAVALVULAR STENOSIS (WRVU 29.33) performed by Alirio Hudson MD at [facility] MAIN OR PRO REPLACE AORTIC VALVE (TAVR/FEDERICO)PERC FEMORAL ARTERY APPROACH 05/12/2023 @TRANSCATHETER AORTIC VALVE REPLACEMENT (TAVR), PERCUTANEOUS FEMORAL (WRVU 22.47) performed by Alirio Hudson MD at [facility] CATH LABS PRO REPLACEMENT PROSTHETIC AORTIC VALVE OPEN W CARDIOPULMONARY BYPASS HOMOGRF/STENT N/A 09/21/2016 @REPLACE AORTIC VALVE, OPEN, W\CPB, W\PROSTHETIC VALVE (WRVU 41.32) performed by Alirio Hudson MD at [facility] MAIN OR Social History: Patient lives alone. Home Setup: Pt lives on one level with tub shower and three steps to enter. DME: none used FIELD CARE COORDINATOR Baseline ADL/Mobility: Independent with ADLs and [...] WFL Vision & Perception: corrective lenses multimedia programmer Communication: WFL Range of motion, strength, coordination: [...] Discharge Disposition (OT): swing bed rehabilitation facility, jail facility(vs home with support for IADLs) Other [...] Discharge planning. Total Minutes, Occupational Therapy: 28 ([phone]) OT Evaluation Code Rationale: Diagnosis & Pertinent Co-Morbidities affecting Plan of Care: see PMHx Occupational Profile & Client History: Brief Expanded Extensive x Assessment of Occupational Performance: 1-3 performance deficits 3-5 performance deficits x 5 + performance deficits Clinical Decision Making: Low Moderate High x Clinical decision making of moderate complexity using standardized patient assessment instrument and measurable assessment of functional outcome. Pager: [phone] TONG MIKE OT 05/20/2023 Occupational Therapy Rehabilitation [...] 0600 and on the weekends please page [phone]. * Rylie Rodriguez MD - 05/19/2023 3:59 [...] and plan. Cynthia Blackburn MD Nephrology Pager: [phone] * Diana Espino - 05/19/2023 1:49 PM EDT Railroad Purchasing Agent Encounter Note Patient Name: Purnima Thacker : [id number] MR#: [id number] Admit Date: 05/08/2023 9:14 AM Hospital Day [...] returning home alone. Anticipated Discharge Disposition (PT): jail facility, swing bed rehabilitation facility Consult Recommendations: [...] as stated. Total Minutes, Physical Therapy: 38 ([phone]) Henrik Dale CANDY Navarrete Pager: [phone] Physical Therapy Inpatient Rehabilitation Department * Nico [...] 0600 and on the weekends please page [phone]. * Laure Ricks PA - 05/19/2023 7:56 [...] Ricks PA-C Interventional Radiology IR Team Pager [phone] * Consuelo Espinoza RN - 05/18/2023 4:13 PM EDT ANGIO NURSING DATABASE Name: Purnima Thacker Date of : 1955 AGE: 67 y.o. Address: [address] [place] [phone] (home) Mobile: No relevant phone numbers on [...] and plan. Cynthia Blackburn MD Nephrology Pager: [phone] * Magdalena Puri, ANURAG - 05/18/2023 10:51 AM EDT Images from the original note were not included. [facility] [address] [place], [place] [address] STRUCTURAL HEART DISEASE CONSULTATION NOTE PRIMARY CARE [...] stenosis. She is now status post TAVR Xzlqv-gw-Dzrsv with a 23 mm Lai 3 THV 05/12/[address] Sharma. Preliminary findings: Successful right transfemoral TAVR Uyjui-ed-Naehz with a 23 mm Lai 3 THV. [...] perforation. Interval Events: - 05/12 Transferred to [facility] post- TAVR [...] mg 81 mg Oral Daily Mara Serrano CAR KNOCKER 81 mg at 05/18/23 0826 ondansetron (pf) [...] stenosis. She is now status post TAVR Urufb-hm-Wnudo with a 23 mm Lai 3 THV [...] Magdalena Puri APRN Structural Heart Team Pager [phone] Team Office Please see addendum by Dr. Sharma for final plan and recommendations Associated attestation - Antelmo Sharma MD - 05/19/2023 10:52 PM EDT I have reviewed Magdalena Puri APRN's above history and I agree with the details as written. The assessment and plan were formulated in discussion with me and I agree with them as documented. Antelmo Sharma MD Pager [phone] * Nico Palacios PA - 05/18/2023 8:13 [...] 0600 and on the weekends please page [phone]. * Loli Hernandez, PT - 05/17/2023 5:27 [...] returning home alone. Anticipated Discharge Disposition (PT): jail facility, swing bed rehabilitation facility Consult Recommendations: [...] plan as stated. Time IN / OUT: 5921-6757 Total Minutes, Physical Therapy: 54 Billing Code: te-sx2, te-f, gait LOLI HERNANDEZ PT Pager: [phone] Physical Therapy Inpatient Rehabilitation Department * Cynthia [...] Well controlled. Cynthia Blackburn MD Nephrology Pager: [phone] * Mara Serrano, CAR KNOCKER - 05/17/2023 8:26 AM EDT Cardiac Surgery [...] 0600 and on the weekends please page [phone]. * Guerda Del Valle - 05/16/2023 10:44 AM EDT Nutrition Services Note - Low Nutrition Acuity Purnima Thacker is a 67 y.o. female Reason for intervention: hospital day 9 Nutrition Plan: Continue diet order Encourage good PO Lasix and Zofran noted Added special serve: open containers Monitor weight Patient scheduled for a hospital day 9 nutrition evaluation. Inspector Machine Parts met with pt at bedside. Pt reports that her appetite and PO has much improved since admission. Denies nausea/vomiting or trouble chewing/swallowing. Inspector Machine Parts provided snack list but pt not interested in adding snacks at this time. Her only concern was that she is worried that she will eat too much which will cause too much pressure in her stomach. Inspector Machine Parts assured pt and suggested eating smaller but [...] Last Bowel Movement: 05/10/23 Guerda Del Valle Skin Grader * Vinod Juárez PA - 05/16/2023 10:19 [...] 0600 and on the weekends please page [phone]. * Michael Jeffers MD - 05/16/2023 8:11 AM EDT Images from the original note were not included. Hypertension-Nephrology Inpatient Follow-up Purnima Thacker [id number] 1955 ID: 67 y.o. old female seen [...] IRONSAT 12 (L) 05/16/2023 SFOLATE >20.0 07/03/2022 [id number] 07/03/2022 Lab Results Component Value Date [...] Dr. Ayoub. Please contact me at phone: [phone] or pager: [phone] with any questions. Michael Jeffers MD Nephrology [...] -Nephrology consulted, labs and renal US ordered -[place] removed, ambulated around the unit -bilateral pleural [...] 0600 and on the weekends please page [phone]. * Hortencia Cody MD - 05/15/2023 2:07 [...] not included. Hypertension-Nephrology Inpatient Follow-up Purnima Thacker [id number] 1955 ID: 67 y.o. old female seen [...] HGB 7.8 (L) 05/13/2023 SFOLATE >20.0 07/03/2022 [id number] 07/03/2022 Lab Results Component Value Date [...] Dr. Ayoub. Please contact me at phone: [phone] or pager: [phone] with any questions. Michael Jeffers MD Nephrology [...] outlined inthis evaluation. HAVEN BA, PT Pager: [phone] Physical Therapy Inpatient Rehabilitation Department Time IN / OUT: 6620-8795 Total time: Total Minutes, Physical Therapy: 30 [...] 0600 and on the weekends please page [phone]. * Antelmo Sharma MD - 05/14/2023 7:56 AM EDT Images from the original note were not included. [facility] [place] [phone] STRUCTURAL HEART DISEASE CONSULTATION NOTE PRIMARY CARE [...] stenosis. She is now status post TAVR Mitwb-gf-Glajz with a 23 mm Lai 3 THV 05/12/[address] Sharma. Preliminary findings: Successful right transfemoral TAVR Jcioj-en-Asqag with a 23 mm Lai 3 THV. [...] stenosis. She is now status post TAVR Xqkud-pi-Lolax with a 23 mm Lai 3 THV 05/12/[address] Sharma. Janet TAVR case notable for coronary LAD protective MINNA. Status post TAVR, the patient was transferred to [facility] for pressor and inotropic support. Pressors weaned overnight 05/12. Cardiac indices by thermodilution remained >3 with continued Milrinone 0.125 mcg/kg/min prior to PAC removal. EKG todayNSR with stable WV/QRS intervals. Hemoglobin slowly down-trending (8.2-> 7.8-> 7.2). [...] 30 days with echo, CBC, and BMP rBody Dale ANURAG Kaplan Structural Heart Team Pager [phone] Team Office Please see addendum by Dr. [...] exposure. Nephrology consultationtoday. Antelmo Sharma MD Pager [phone] * Antelmo Cardenas RN - 05/14/2023 5:18 AM EDT Pt AOx4, complaining of mild/moderate generalized pain (states her Meloxicam is effective at home) currently refusing prn oxycodone. NAEON, hemodynamically stable on Milrinone, Maps >65, ST in ffb784's down to NSR with frequent multifocal PVC's. [...] included. [facility] [place] [address] STRUCTURAL HEART DISEASE PROGRESS NOTE PRIMARY CARE [...] stenosis. She is now status post TAVR Vnpho-fh-Coflj with a 23 mm Lai 3 THV 05/12/[address] Sharma. Preliminary findings: Successful right transfemoral TAVR Cediw-gp-Edxti with a 23 mm Lai 3 THV. [...] or perforation. Interval Events: - Transferred to [facility] post- TAVR [...] stenosis. She is now status post TAVR Bhgjd-bn-Akcgl with a 23 mm Lai 3 THV 05/12/[address] Sharma. Janet TAVR case notable for coronary LAD protective MINNA. Status post TAVR, the patient was transferred to [facility] for pressor and inotropic support. Pressors weaned overnight. Cardiac indices by thermodilution remain greater than 3 with continued Milrinone 0.125 mcg/kg/min. EKG today NSR with stable WV/QRS intervals. Hemoglobin 7.8 today from 8.5, likely [...] Brody Kaplan APRN Structural Heart Team Pager [phone] Team Office Please see addendum by Dr. [...] DAPT moving forward. Antelmo Sharma MD Pager [phone] * Bonita Miguel PA - 05/13/2023 8:30 AM EDT Cardiac Surgery Progress Note Purnima Thacker is a 67 y.o. 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 PMH of s/p tissue AVR (2017), mixed connective tissue disease HTN, HLD, NICOLAS, diverticulosis, rosacea, essential tremor, and depression. 24h Events: From clinical lab clerk for above procedure Extubated at ~1600 to [...] soft b/l, no evidence of hematoma. Tubes/Lines/Drains: [place], RIJ, A-line, Art, PIV Assessment/Plan: 67 y.o. [...] 0600 and on the weekends please page [phone]. * Onelia Schwartz MD - 05/12/2023 1:44 [...] FiO2 weaned to 40%. 1105: ABG 7.34/42/73/22 5450-7798: SBT performed and passed on these settings [...] Cardiology ICU Progress Note Patient info: Name: uPrnima Thacker : 1955 PCP: Magdalena Acosta MD PCP phone number: [phone] Date of Admission: 05/08/2023 ( Hospital Day [...] 1447 PHART -- 7.34* 7.34* -- -- UEO1TQH -- 30* 30* -- -- PO2ART -- 72* 81* -- -- IFV8FVH -- 16.0* 15.7* -- -- LACTATEVEN 2.4* 2.7* 2.7* 4.8* 2.9* VBG (Venous Blood Gas) Recent Labs 05/12/23 0700 05/12/23 0318 05/12/2310505/11/23193905/11/23 1447 LACTATEVEN 2.4* 2.7* 2.7* 4.8* 2.9* Mixed Venous Sat Recent Labs 05/12/23 0508 05/12/23 0321 05/12/23 0114 05/12/23 0030 J2XQFU8 30.7 32.7 37.3 25.1 Objective: Vitals Last [...] questions please contact the health client care coordinator that requested your imaging first. Electronically signed by: ALIX RUVALCABA MD, [facility] ([phone]), at 05/10/2023 1:[address] Cardiac for [...] questions please contact the health client care coordinator that requested your imaging first. Electronically signed by: Cullen Narayanan MD, [facility] ([phone]), at 05/11/2023 4:[address] Angiogram Abdomen [...] questions please contact the health client care coordinator that requested your imaging first. Chest [...] questions please contact the health client care coordinator that requested your imaging first. Chest [...] questions please contact the health client care coordinator that requested your imaging first. Assessment [...] and inotrope. She is planned for a mixwu-gf-jgpnk TAVR this morning, which should hopefully improve [...] MD, FACP, FACC Section of Cardiovascular Medicine [facility] [employer] Millrn night [facility] at [facility] * Noreen Deutsch RN - [...] 05/11/2023 4:11 PM EDT Reported off to HOP PICKER and pt transferred over in the bed for higher level of care. * Antelmo Sharma MD - 05/11/2023 9:45 AM EDT Images from the original note were not included. [facility] [place] [id number] STRUCTURAL HEART DISEASE CONSULTATION NOTE PRIMARY CARE PROVIDER: Magdalena Acosta MD REFERRING PROVIDER: Mario Alberto Chni REASON FOR CONSULTATION: Bioprosthetic aortic valve stenosis [...] who had been referred for possible TAVR vhqdv-ei-owqut evaluation. Her primary symptoms are of dyspnea [...] otherwise negative. Ms. Thacker is originally from [facility]. 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 She states [...] hour(s)) Lactate, whole blood, send to lab ([facility] Result Value Ref Range Lactate WB 3.1 (H) 0.5 - 2.2 mmol/L Heparin (unfractionated) Level Result Value Ref Range Heparin UFH Level 0.46 IU/mL Lactate, whole blood, send to lab ([facility]) Result Value Ref Range Lactate [...] leads Confirmed by MD Harshil, Enrique Bell ([id number]) on 05/10/2023 8:11:46 AM Cardiac Cath 11/09/2022 [...] to decompensating HFrEF, she was transferred to [facility] this afternoon for further management. TAVR CT imaging support for adequate ileofemoral access. Given her acute deterioration today, will planfor RTF TAVR on 05/12/2023. Brody Kaplan ANURAG Structural Heart Disease Pager [phone] Please see addendum by Dr. Sharma for [...] signed and dated. Antelmo Sharma MD Pager [phone] * Harini Lance MD - 05/11/2023 6:06 AM EDT Images from the original note were not included. Cardiology Progress Note Patient info: Name: Purnima Thacker : 1955 PCP: Magdalena Acosta MD PCP phone number: [phone] Date of Admission: 05/08/2023 ( Hospital Day [...] questions please contact the health client care coordinator that requested your imaging first. Electronically signed by: ALIX RUVALCABA MD, [facility] ([phone]), at 05/10/2023 1:25 PM TTE: 05/08 -Left [...] PCP: Magdalena Acosta MD PCP phone number: [phone] Date of Admission: 05/08/2023 ( Hospital Day [...] PCP: Magdalena Acosta MD PCP phone number: [phone] Date of Admission: 05/08/2023 ( Hospital Day [...] Gas) No results found for: PHART, PO2ART, LTG0FJD, NUN5GPW Microbiology: Microbiology Results (Last 30 days) No [...] PPx: Diet: Daily Healthy Menu Choices/Cardiac diet ([facility]Diet) Lines: Peripheral IV Line - Single Lumen [...] performed by Mario Alberto Escobedo MD at [facility] CATH LABS PRO AORTOPLAS FOR SUPRAVALV STEN N/A 09/21/2016 @AORTOPLASTY FOR SUPRAVALVULAR STENOSIS (WRVU 29.33) performed by Alirio Hudson MD at [facility] MAIN OR PRO REPLACEMENT PROSTHETIC AORTIC VALVE OPEN W CARDIOPULMONARY BYPASS HOMOGRF/STENT N/A 09/21/2016 @REPLACE AORTIC VALVE, OPEN, W\CPB, W\PROSTHETIC VALVE (WRVU 41.32) performed by Alirio Hudson MD at [facility] MAIN OR Social History and Habits: Social [...] Verio test strips Strip USE DAILY OneTouch DelKitLocate Plus Lancet 33 gauge Misc USE DAILY [...] performed by Mario Alberto Escobedo MD at [facility] CATH LABS PRO AORTOPLAS FOR SUPRAVALV STEN N/A 09/21/2016 @AORTOPLASTY FOR SUPRAVALVULAR STENOSIS (WRVU 29.33) performed by Alirio Hudson MD at [facility] MAIN OR PRO REPLACEMENT PROSTHETIC AORTIC VALVE OPEN W CARDIOPULMONARY BYPASS HOMOGRF/STENT N/A 09/21/2016 @REPLACE AORTIC VALVE, OPEN, W\CPB, W\PROSTHETIC VALVE (WRVU 41.32) performed by Alirio Hudson MD at [facility] MAIN OR Social History and Habits: Social [...] which prompted her to present to [employer]. She also endorses some intermittent retrosternal chest pain with exertion.She endorses some dizziness with exertion, but has not gotten faint or passed out. At [employer] [facility] she was noted to be afebrile, blood pressure 105/64, HR 120s, satting 95% on 2L NC. Labs from [facility] are below, of note she had [...] which prompted the transfer to us. [facility] labs: CBC - Hgb 10.5 CMP - Cr 1.1 BNP 58988 HsTrop 1358 Lactate 1.6 D-dimer 1183 Interval [...] Code Status: Attempt Cardiopulmonary Resuscitation - Inpatient [facility] Roman Reid MD Internal Medicine PGY-1 Pager [phone], M1-S1 Service Associated attestation - Juan Luis [...] PCP: Magdalena Acosta MD PCP phone number: [phone] Date of Admission: 05/08/2023 ( Hospital Day 0 days ) Attending:Enrique Chua MD ID: Purnima Thacker is a 67 y.o. female w/ PMH of s/p bioprosthetic AVR in 2016 with recent concern for severe restenosis, HTN, HLD, mixed connective tissue disease, who presents in transfer from [facility] with worsening BONILLA and weight gain [...] days, which promptedher to present to [employer]. She also endorses some intermittent retrosternal chest pain with exertion. She endorses some dizziness with exertion, but has not gotten faint or passed out. At [facility] [facility] she was noted to be afebrile, blood pressure 105/64, HR 120s, satting 95% on 2L NC. Labs from [facility] are below, of note she had [...] which prompted the transfer to us. [facility] labs: CBC - Hgb 10.5 CMP - Cr 1.1 BNP 60030 HsTrop 1358 Lactate 1.6 D-dimer 1183 Vasoactive [...] disease, who presents [facility] BONILLA and weight gain concerning [...] #Routine Diet: Daily Healthy Menu Choices/Cardiac diet ([facility]Diet) DVT Prophylaxis: heparin gtt GI Prophylaxis: none [...] remains HD stable, can transfer out of [facility]. -Structural Heart consult; will need inpatient [...] to the planned procedure. Hand Hygiene: The senior accounting analyst did perform hand hygiene prior to arterial [...] Successful arterial line placement. Crispin Timmons MD Light Rail Operator Associated attestation - Onelia Schwartz MD [...] (flow was non-pulsatile) and appearance of blood. [place]-Marily catheter was placed and locked at 55 [...] information for follow-up [facility], [place] [address] [place] [address] Cardiac Rehab, [facility] [address] [place] [address] [facility] [address] [place] [address] Transportation: family or friend will provide *Brother [...] Type: *No Product type* / Secondary Insurance: [employer] [place] Prescription Coverage: Yes This plan was formulated with input from patient, family (please identify family/friend involved ifapplicable) and team. All are in agreement with plan. Aliza Martino MSN-Ed, RN ACM spd tech Office of Care Management Pager #[phone] * Plan of Care - Favian Mckeon [...] Chaudhary RN - 05/21/2023 4:46 PM EDTSummary: [facility] referral OFFICE OF CARE MANAGEMENT [...] Type: *No Product type* / Secondary Insurance: [employer] [place] Last Physical Therapy Recommendation: (Home with assist from Brother; Friend arriving Tues) with walker, front wheeled Last Occupational Therapy Recommendation: swing bed rehabilitation facility, jail facility (vs home with support for IADLs) with walker, front wheeled, shower chair Plan for discharge is: Home w/ Services Outpatient Agency/Support Group Needs: Homecare agency Home Health Services: Physical Therapy, Occupational Therapy Agency Referrals: I have met with the patient to: discuss discharge planning needs. describing our affiliations within the [facility] and educate about their right to choose where referrals are sent. provide a list of Home Health Agencies / Durable Medical Equipment vendors which serve their preferred geographic area. They have requested referrals to: [facility] [address] [place] [address] Ortho Care Located @ [place], [place] Note routed to a Truck Trailer Final Inspector who will communicate referrals to facilities and provide any required information. Transportation: family or friend will provide *Brother Raymond on Tuesday 05/22 at 1000 Barriers to discharge: Does not have home 22/02 assist available until tomorrow Tuesday 05/22 Plan going forward: Discharge home into the 22/02 home care of brother Raymond with [facility] and [facility] PT/OT services on Tuesday 05/22 [...] Appropriate) * Plan of Care - Miguel rBody RN - 05/18/2023 6:32 PM EDT SHIFT [...] Attending: All Staff: Staff Role Juanita Almaguer Coupon And Bond Collection Clerk Laure Ricks PA Physician Twister In Magdalena Rodriguez ordnance engineer Nurse Consuelo Espinoza, ordnance engineer Nurse Post-operative diagnosis/Indication: Right pleural effusion Name [...] (2017), mixed connective tissue disease HTN, HLD, NICOLSA, diverticulosis, rosacea, essential tremor, and depression. 24h [...] Type: *No Product type* / Secondary Insurance: [employer] [facility] Last Physical Therapy Recommendation: jail facility, swing bed rehabilitation facility with to be determined Last Occupational Therapy Recommendation: with Plan for discharge is: Snf Facility / Swing Outpatient Agency/Support Group Needs: None Agency Referrals: Based on discussions with the multi-disciplinary healthcare team, the patient would benefit from SNF / Swing level of care at discharge. I have met with the patient to: discuss discharge planning needs. provide the [facility], Office of Care Management letter from the [employer] Representatives pertaining to rehab referrals. provide a letter describing our affiliations within the [facility] and educate about their right to choose where referrals are sent. provide the CMS Star Quality Rating handout. review the different levels of rehab including SNF, swing, and acute. provide a list of facilities within their preferred geographic area. request that they provide at least three choices for referral. They have requested referrals to: [facility] [address] [place] [address] [facility]) [address] [place] [address] (Accepts pts only after exhausting all other local SNF options) [facility] ([facility]) ([facility]) [address] [place] [address] PHONE: [phone] FAX: [phone] [facility] [place] ([facility]) [facility]) [address] [place] [address] PHONE: [phone] FAX: [phone] Note routed to a Truck Trailer Final Inspector who will communicate referrals to facilities and [...] Crenshaw RN - 05/17/2023 10:25 AM EDT [facility] CARDIAC REHABILITATION Purnima Thacker was seen today regarding participation in the outpatient Phase 2 Cardiac Rehabilitation at [facility]. The patient agrees to a referral [...] from the original note were not included. [facility] NEPHROLOGY/HYPERTENSION CONSULT NOTE PATIENT: Purnima [...] in her course. She ultimately underwent a xhfpu-gl-dgubm procedure on and tolerated it well (see [...] 1423 05/12/23 1105 PHART 7.39 7.37 7.34* FZW3PDW 33* 36 42 PO2ART 101 102 73* VLH2FAI 19.5* 20.4 22.1 LACTATEVEN 1.5 1.8 2.8* VRB1BRA 40 40 40 PFRATIOART2 252 255 182 VBG (Venous Blood Gas) Recent Labs 05/12/23 1557 05/12/23 1423 05/12/23 1105 LACTATEVEN 1.5 1.8 2.8* Mixed Venous Sat Recent Labs 05/12/23 1425 05/12/23 0508 05/12/23 0321 G7DGDD4 59.9 30.7 32.7 LFT's: Recent Labs 05/14/23 0110 05/13/23 0115 05/12/23 0600 BILITOT 0.4 0.5 0.9 BILIDIR -- 0.3 -- ALBUMIN 3.6 3.0* 3.5 ALKPHOS 86 85 100 ALT 437* 903* 1,174* AST 319* 792* 1,435* No results found for: UPROTCREAT No results found for: TPROTEINPEP, ALBELECT No results found for: MICROALBUR, MONA54HFZ No results found for: HA1C Lab Results Component Value Date CALCIUM 8.5 05/14/2023 PHOS 4.7 (H) 05/08/2023 No results found for: 25OHVITD MICROBIOLOGY: ProcedureComponentValueUnitsDate/TimeUrine culture [[id number]]Collected: 05/11/231921Lab Status: Final resultSpecimen: Clean Catch UrineUpdated: [...] consulted for assessment if this patient needs METAL TRADES INSTRUCTOR. Atthis time, we can likely hold off on METAL TRADES INSTRUCTOR. Her volume status appears sufficient and her metabolic kanwal angements with mild acidosis is not too profound. Patient does not have significant uremic symptoms. We can hold off for today, but the patient is a high risk candidate for needing METAL TRADES INSTRUCTOR in future daysespecially if her Cr curve trends the direction it is for the next several days. S/p Jcvia-cz-Exkre TF TAVR: Management per cardiology. On milrinone gtt. PLAN: - Please obtain following diagnostics: renal US, urinalysis, urine prot/Cr ratio, urine albumin/Cr ratio, CK, uric acid, serum osmol, daily VBGs - No acute indications for METAL TRADES INSTRUCTOR/dialysis. We will keep close eye on Cr trend, volume status, and metabolics to ensure patient still does not need METAL TRADES INSTRUCTOR as she ensues intrinsic renal recovery - [...] M.H.A., M.A. PGY-V Nephrology-Hypertension Fellow Page # [phone] [facility] [address] 2nd floor, Stone Rigger [address] [place] [address] * Care Management - Mario Alberto Olmos [...] for a TAVR at 730. Returned to [facility] at 0945. Was intubated in the clinical lab clerk due to agitation. Maintained bedrest for 5 [...] Operative Note Patient Name: Purnima Thacker : [id number] MR#: [id number] Case Date: 05/12/2023 Surgeon: Surgeon(s) and Role: [...] procedure Note: Patient Name: Purnima Thacker : [id number] MR#: [id number] Case Date: 05/12/2023 Operators Surgeon: Surgeon(s) and [...] main with 4.0 x 30 mm Resolute Meservey Drug Eluting Stent Perclose x1 + Angio-seal 8 Fr x1, RFA Manual pressure, LFA Manual pressure, LFV Endotracheal intubation (performed by cardiac anesthesia) Preliminary findings: Successful right transfemoral TAVR Icvym-rm-Brqqg with a 23 mm Lai 3 THV. [...] MD, M.Sc. Structural Heart Disease Fellow Pager :[phone] Antelmo Sharma MD Pager [phone] * Op Note - Alirio Hudson MD - 05/12/2023 7:37 AM EDT Preop Diagnosis: Severe aortic stenosis, symptomatic. Postop Diagnosis: Same. Procedure: Transfemoral TAVR procedure with 23mm valve. Surgeon: Alirio Hudson M.D. School Health Assistant: Danny CULP Procedure: The patient was taken to the clinical lab clerk. The patient had monitored anesthesia care. 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 [facility] [place] [address] STRUCTURAL HEART DISEASE CONSULTATION NOTE PRIMARY CARE [...] who had been referred for possible TAVR kzlre-li-ubcuz evaluation. Her primary symptoms are of dyspnea [...] otherwise negative. Ms. Thacker is originally from [facility]. 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 She states [...] hour(s)) Lactate, whole blood, send to lab ([facility] Result Value Ref Range Lactate [...] leads Confirmed by MD Harshil, Enrique Bell ([id number]) on 05/10/2023 8:11:46 AM Assessment and Plan: [...] Antelmo Sharma MD Structural Heart Disease Pager [phone] * Plan of Care - Sarahi Nice RN - 05/10/2023 3:55 AM EDTSumavis: VALDO Note and Care Plan Sarahi Nice RN assumed care of pt at time of their arrival to room 362 from [facility]. Pt voices [...] from another hospital Location: admitted from [facility] Reason for Hospitalization: Critical aortic stenosis, [...] receiving care in [place] must abide by [place] law. The hierarchy [...] (i) The agent with financial power of compliance attorney or a conservator appointed in accordance [...] Current DME: none Home Address confirmed as: [address] [place] [address] Social & Family Supports: All names listed [...] Prescription Coverage: Yes Preferred Pharmacy: updated to [facility] Status: Patient is a : No Primary Care Provider confirmed: Magdalena Acosta MD [phone] Patient/Caregiver Goals of Treatment: Potential Needs for [...] of a 2 story home with 2 [facility]. Patient is independent with ADL's at baseline [...] of care planning. Alie Bradshaw RN, CM Pager-[phone] * Plan of Care - Emily Lucero RN - 05/08/2023 2:54 PM EDT OUTCOME EVALUATION NOTE: OUTCOME SUMMARY: Pt arrived from [facility]. A&O, no c/o pain or SOB. [...] 4:15 PM EDT Office Visit Dermatology at [facility] [address] [place] [id number] Marek Bonilla MD [address], [place] [address] Scheduled Referrals Name Type Priority Associated Diagnoses [...] Heart Cath W/Inj L Ventriculography, Img S&I ([id number]) 05/12/2023 7:37 AM EDT Aortic valve stenosis, [...] DOPP COLOR DOPP (07/08/2023 12:15 PM EST) [facility] EF 20 HEARTLAB SYSTEM Anatomical Region Laterality Modality Cardiac Other 07/08/2023 10:3 1 AM EST Narrative 07/08/2023 12:26 PM EST 1 [place] [address] ? Echocardiogram Report Name: PURNIMA THACKER ?Study Date: 07/08/2023 10:31 AMBP: 118/60 mmHg ? [facility] 1955 ? Height: 155 cm ? Account: [id number] Age: 67 yrs ? Weight: 74 kg Gender: Female ?BSA: 1.7 m2 Ordering Physician: ALIRIO HUDSON Referring Physician: VINOD JUÁREZ Performed By: Felicia Norris RODOLFO Reason For Study: S/P TAVR Exam Location: [facility]. Interpretation Summary Left ventricular systolic [...] no significant change (post-procedure). Procedure Limited - 37230. Doppler - 27641. Color Doppler - 33645. Satisfactory quality. This study is limited because [...] Note Lee Kincaid MD - 07/08/2023 1 [place] [address] Echocardiogram Report Name: LASHELL THACKERDARWIN Mejias Study Date: 0:31 AMBP: 118/60 mmHg Patient Location: : 1955 Height: 155 cm Account: [id number] Age: 67 yrs Weight: 74 kg Gender: Female BSA: 1.7 m2 Ordering Physician: ALIRIO HUDSON Referring Physician: VINOD JUÁREZ Performed By: Felicia Norris RDCS Reason For Study: S/P TAVR Exam Location: [facility]. Interpretation Summary Left ventricular systolic [...] is nosignificant change (post-procedure). Procedure Limited - 72290. Doppler - 26743. Color Doppler - 39581. Satisfactoryquality. This study is limited because of [...] EST) Glucose 93 65 - 199 mg/dL [facility] Comment:Diabetes: >=200 mg/d L plus symptoms Blood Urea Nitrogen 19(H) 8 - 18 mg/dL [facility] Creatinine 0.81 0.70 - 1.20 mg/dL [facility] Sodium 142 135 - 145 mmol/L [facility] Potassium 3.8 3.5 - 5.0 mmol/L [facility] Comment: Please note: ??Patients with WBC >100,000 may have falsely elevated Potassium levels. ??For accurate Potassium quantification in these patients send serum separator tube (gold top) for subsequent determinations. ??Contact the Clinical Chemistry Laboratory if there are any questions. Chloride 104 98 - 107 mmol/L [facility] Carbon Dioxide 26 22 - 31 mmol/L [facility] Anion Gap 12 5 - 15 mmol/L [facility] Calcium 10.2 8.5 - 10.5 mg/dL [facility] Protein, Total 7.4 6.1 - 8.0 g/dL [facility] Albumin 4.1 3.2 - 5.2 g/dL [facility] Aspartate Aminotransferase 24 0 - 30 unit/L [facility] Alanine Aminotransferase 12 0 - 30 unit/L [facility] Alkaline Phosphatase 93 35 - 105 unit/L [facility] Bilirubin, Total 0.3 0.2 - 1.3 mg/dL [facility] Est Glomerular Filtration Rate 80 >=60 mL/min/1. 73 m?? [facility] [...] Lab Alirio Hudson MD CHEMISTRY ORDERABLE S [facility] [place] [address] * (ABNORMAL) Basic Metabolic Panel (non-fasting) (05/22/2023 3:57 AM EDT) Glucose 88 65 - 199 mg/dL [facility] Comment:Diabetes: >=200 mg/d L plus symptoms Blood Urea Nitrogen 21(H) 8 - 18 mg/dL [facility] Creatinine 0.69(L) 0.70 - 1.20 mg/dL [facility] Sodium 136 135 - 145 mmol/L [facility] Potassium 3.6 3.5 - 5.0 mmol/L [facility] Comment: Please note: ??Patients with WBC >100,000 may have falsely elevated Potassium levels. ??For accurate Potassium quantification in these patients send serum separator tube (gold top) for subsequent determinations. ??Contact the Clinical Chemistry Laboratory if there are any questions. Chloride 102 98 - 107 mmol/L [facility] Carbon Dioxide 23 22 - 31 mmol/L [facility] Anion Gap 11 5 - 15 mmol/L [facility] Calcium 8.6 8.5 - 10.5 mg/dL [facility] Est Glomerular Filtration Rate 95 >=60 mL/min/1. 73 m?? [facility] [...] Lab Mara Serrano ANURAG CHEMISTRY ORDERABL ES [facility] [place] [address] * (ABNORMAL) Basic Metabolic Panel (non-fasting) (05/21/2023 5:06 AM EDT) Glucose 87 65 - 199 mg/dL [facility] Comment:Diabetes: >=200 mg/d L plus symptoms Blood Urea Nitrogen 25(H) 8 - 18 mg/dL [facility] Creatinine 0.84 0.70 - 1.20 mg/dL [facility] Sodium 136 135 - 145 mmol/L [facility] Potassium 3.6 3.5 - 5.0 mmol/L [facility] Comment: Please note: ??Patients with WBC >100,000 may have falsely elevated Potassium levels. ??For accurate Potassium quantification in these patients send serum separator tube (gold top) for subsequent determinations. ??Contact the Clinical Chemistry Laboratory if there are any questions. Chloride 102 98 - 107 mmol/L [facility] Carbon Dioxide 26 22 - 31 mmol/L [facility] Anion Gap 8 5 - 15 mmol/L [facility] Calcium 8.9 8.5 - 10.5 mg/dL [facility] Est Glomerular Filtration Rate 76 >=60 mL/min/1. 73 m?? [facility] [...] Narrative Resulting Agency Comment Spec In Lab [facility] CAR KNOCKER CHEMISTRY ORDERABL ES Performing Organization Address City/[facility]/ZIP Co de Phone Number [facility] [place] [address] * Lavender Tube HOLD (05/20/2023 2:52 AM EDT) Lavender Hold Sample in lab. [facility] Blood Venous Draw / Unknown 05/20/2023 2:52 AM EDT 05/20/2023 3:04 AM EDT [facility] CAR KNOCKER HEMATOLOGY ORDERAB LES Performing Organization Address City/[facility]/ZIP Co de Phone Number [facility] [place] [address] * (ABNORMAL) Basic Metabolic Panel (non-fasting) (05/20/2023 2:52 AM EDT) Glucose 152 65 - 199 mg/dL [facility] Comment:Diabetes: >=200 mg/d L plus symptoms Blood Urea Nitrogen 33(H) 8 - 18 mg/dL [facility] Creatinine 0.82 0.70 - 1.20 mg/dL [facility] Sodium 137 135 - 145 mmol/L [facility] Potassium 3.7 3.5 - 5.0 mmol/L [facility] Comment: Please note: ??Patients with WBC >100,000 may have falsely elevated Potassium levels. ??For accurate Potassium quantification in these patients send serum separator tube (gold top) for subsequent determinations. ??Contact the Clinical Chemistry Laboratory if there are any questions. Chloride 99 98 - 107 mmol/L [facility] Carbon Dioxide 22 22 - 31 mmol/L [facility] Anion Gap 16(H) 5 - 15 mmol/L [facility] Calcium 9.0 8.5 - 10.5 mg/dL [facility] Est Glomerular Filtration Rate 78 >=60 mL/min/1. 73 m?? [facility] [...] Agency Comment Spec In Lab Mara [place] CAR KNOCKER CHEMISTRY ORDERABL ES Performing Organization Address [facility] Co de Phone Number [facility] [place] [address] * (ABNORMAL) Potassium (05/20/2023 2:52 AM EDT) [facility] Potassium 3.4(L) 3.5 - 5.0 mmol/L [facility] [...] Agency Comment Spec In Lab Mara [place] CAR KNOCKER CHEMISTRY ORDERABL ES Performing Organization Address [facility] de Phone Number [facility] [place] [address] * XR Chest PA & Lateral (Generic) [...] questions please contact the health client care coordinator that requested your imaging first. ? Electronically signed by: Chyna Johnson MD, [facility] ??([phone]), at 05/19/2023 2:19 PM Narrative 05/19/2023 2:19 [...] cardiomediastinal silhouette. Unchanged cholecystectomy clips. Procedure Note hCyna Johnson MD - 05/19/2023 EXAMINATION: XR CHEST [...] the resident's interpretationand agree with the findings, Chyan Johnson MD at 05/19/2023 2:19 PM Thank you for letting us participate in the care of this patient. If youare a health care provider and have any questions regarding this report,please contact the number below. For patients who have questions please contactthe health client care coordinator that requested your imaging first. Alirio Hudson MD IMG DX ORDERABLES * (ABNORMAL) Basic Metabolic Panel (non-fasting) (05/19/2023 5:49 AM EDT) Glucose 93 65 - 199 mg/dL [facility] Comment:Diabetes: >=200 mg/d L plus symptoms Blood Urea Nitrogen 45(H) 8 - 18 mg/dL [facility] Creatinine 1.02 0.70 - 1.20 mg/dL [facility] Sodium 138 135 - 145 mmol/L [facility] Potassium 3.9 3.5 - 5.0 mmol/L [facility] Comment: Please note: ??Patients with WBC >100,000 may have falsely elevated Potassium levels. ??For accurate Potassium quantification in these patients send serum separator tube (gold top) for subsequent determinations. ??Contact the Clinical Chemistry Laboratory if there are any questions. Chloride 102 98 - 107 mmol/L [facility] Carbon Dioxide 26 22 - 31 mmol/L [facility] Anion Gap 10 5 - 15 mmol/L [facility] Calcium 9.7 8.5 - 10.5 mg/dL [facility] Est Glomerular Filtration Rate 60 >=60 mL/min/1. 73 m?? [facility] [...] Agency Comment Spec In Lab Mara Serrano [place] [address] * IR Chest Tube Placement Right (05/18/2023 [...] EDT) Glucose 95 65 - 199 mg/dL [facility] Comment:Diabetes: >=200 mg/d L plus symptoms Blood Urea Nitrogen 71(H) 8 - 18 mg/dL [facility] Comment:result rechecked-JSJ Creatinine 1.64(H) 0.70 - 1.20 mg/dL [facility] Comment:result rechecked-JSJ Sodium 137 135 - 145 mmol/L [facility] Potassium 3.7 3.5 - 5.0 mmol/L [facility] Comment: Please note: ??Patients with WBC >100,000 may have falsely elevated Potassium levels. ??For accurate Potassium quantification in these patients send serum separator tube (gold top) for subsequent determinations. ??Contact the Clinical Chemistry Laboratory if there are any questions. Chloride 100 98 - 107 mmol/L [facility] Carbon Dioxide 24 22 - 31 mmol/L [facility] Anion Gap 13 5 - 15 mmol/L [facility] Calcium 9.7 8.5 - 10.5 mg/dL [facility] Est Glomerular Filtration Rate 34(L) >=60 mL/min/1. 73 m?? [facility] [...] Agency Comment Spec In Lab Mara Serrano CAR KNOCKER CHEMISTRY ORDERABL ES [facility] [place] [address] * XR Chest PA & Lateral (Generic) [...] questions please contact the health client care coordinator that requested your imaging first. ? Electronically signed by: Ghassan Reyes MD, [facility] ??([phone]), at 05/17/2023 11:46 AM Narrative 05/17/2023 11:46 [...] have questions please contactthe health client care coordinator that requested your imaging first. Alirio Hudson MD IMG DX ORDERABLES * (ABNORMAL) Comprehensive metabolic panel (non-fasting) (05/17/2023 4:35 AM EDT) Glucose 89 65 - 199 mg/dL [facility] Comment:Diabetes: >=200 mg/d L plus symptoms Blood Urea Nitrogen 97(H) 8 - 18 mg/dL [facility] Creatinine 2.97(H) 0.70 - 1.20 mg/dL [facility] Comment:result rechecked-JSJ Sodium 135 135 - 145 mmol/L [facility] Potassium 4.1 3.5 - 5.0 mmol/L [facility] Comment: Please note: ??Patients with WBC >100,000 may have falsely elevated Potassium levels. ??For accurate Potassium quantification in these patients send serum separator tube (gold top) for subsequent determinations. ??Contact the Clinical Chemistry Laboratory if there are any questions. Chloride 97(L) 98 - 107 mmol/L [facility] Carbon Dioxide 22 22 - 31 mmol/L [facility] Anion Gap 16(H) 5 - 15 mmol/L [facility] Calcium 9.6 8.5 - 10.5 mg/dL [facility] Protein, Total 6.5 6.1 - 8.0 g/dL [facility] Albumin 3.7 3.2 - 5.2 g/dL [facility] Aspartate Aminotransferase 58(H) 0 - 30 unit/L [facility] Alanine Aminotransferase 66(H) 0 - 30 unit/L [facility] Alkaline Phosphatase 86 35 - 105 unit/L [facility] Bilirubin, Total 0.6 0.2 - 1.3 mg/dL [facility] Est Glomerular Filtration Rate 17(L) >=60 mL/min/1. 73 m?? [facility] [...] MD CHEMISTRY ORDERABLE S Performing Organization Address City/State/[facility] Co de Phone Number [facility] [place] [address] * Potassium (05/16/2023 11:15 PM EDT) Potassium 3.7 3.5 - 5.0 mmol/L [facility] [...] MD CHEMISTRY ORDERABLE S Performing Organization Address City/[facility]/ZIP Co de Phone Number [facility] [place] [address] * Magnesium (05/16/2023 5:22 PM EDT) Magnesium 0.96 0.69 - 1.07 mmol/L [facility] Blood 05/16/2023 5:22 PM EDT 05/16/2023 5:27 PM EDT Narrative Resulting Agency Comment Spec In Lab Alirio Hudson MD CHEMISTRY ORDERABLE S Performing Organization Address [facility] Co de Phone Number [facility] [place] [address] * (ABNORMAL) Basic Metabolic Panel (non-fasting) (05/16/2023 5:22 PM EDT) Glucose 106 65 - 199 mg/dL [facility] Comment:Diabetes: >=200 mg/d L plus symptoms Blood Urea Nitrogen 103(H) 8 - 18 mg/dL [facility] Creatinine 3.91(H) 0.70 - 1.20 mg/dL [facility] Comment:result rechecked-imm Sodium 132(L) 135 - 145 mmol/L [facility] Potassium 3.6 3.5 - 5.0 mmol/L [facility] Comment: Please note: ??Patients with WBC >100,000 may have falsely elevated Potassium levels. ??For accurate Potassium quantification in these patients send serum separator tube (gold top) for subsequent determinations. ??Contact the Clinical Chemistry Laboratory if there are any questions. Chloride 92(L) 98 - 107 mmol/L [facility] Carbon Dioxide 22 22 - 31 mmol/L [facility] Anion Gap 18(H) 5 - 15 mmol/L [facility] Calcium 9.7 8.5 - 10.5 mg/dL [facility] Est Glomerular Filtration Rate 12(L) >=60 mL/min/1. 73 m?? [facility] Comment: This patient's estimated GFR [...] ORDERABLE S Performing Organization Address [facility] Co de Phone Number [facility] [place] [address] * (ABNORMAL) Potassium (05/16/2023 11:43 AM EDT) Potassium 3.3(L) 3.5 - 5.0 mmol/L [facility] [...] ORDERABLE S Performing Organization Address [facility] Co de Phone Number [facility] [place] [address] * (ABNORMAL) Ferritin (05/16/2023 4:41 AM EDT) Ferritin 1,813(H) 30 - 400 ng/mL [facility] Comment: Pediatric reference ranges not verified at [facility], interpret with caution. Reference ranges for females greater than 50 years of age approach values for men, i.e., 30-400 ng/mL. Blood 05/16/2023 4:41 AM EDT 05/16/2023 4:54 AM EDT Narrative Resulting Agency Comment Spec In Lab Kristopher Ayoub MD CHEMISTRY ORDERABLES Performing Organization Address City/[facility]/ZIP Co de Phone Number [facility] [place] [address] * (ABNORMAL) PTH (05/16/2023 4:41 AM EDT) Parathyroid Hormone 120(H) 15 - 65 pg/mL [facility] Blood 05/16/2023 4:41 AM EDT 05/16/2023 4:54 AM EDT Narrative Resulting Agency Comment Spec In Lab Kristopher Ayoub MD CHEMISTRY ORDERABLES Performing Organization Address [facility] Co de Phone Number [facility] [place] [address] * Vitamin D, 25-Hydroxy (05/16/2023 4:41 AM EDT) Vitamin D Total 25 OH 33 21 - 100 ng/mL [facility] Vit D Interp Sufficient [facility] Blood 05/16/2023 4:41 AM EDT 05/16/2023 4:54 AM EDT Narrative Resulting Agency Comment Spec In Lab Kristopher Ayoub MD CHEMISTRY ORDERABLES Performing Organization Address City/[facility] Co de Phone Number [facility] [place] [address] * (ABNORMAL) Blood Gas Venous ([facility]) (05/16/2023 4:22 AM EDT) pH, Venous 7.41 7.32 - 7.42 [facility] PCO2, Venous 32(L) 41 - 51 mmHg [facility] PO2, Venous 73(H) 25 - 40 mmHg [facility] Bicarbonate, Venous 19.6 mmol/L [facility] Base Excess, Venous -5.1 mmol/L [facility] Hgb Blood Gas 9.7(L) 11.7 - 15.5 g/dL [facility] Oxyhemoglobin, Venous 92.8 % [facility] Carboxyhemoglob in, Venous 0.1 % [facility] Comment: Nonsmokers: 0.5-1.5% COHB Smokers: Variable, but usually less than 10% Toxic: 20-30% COHB Lethal: Greater than 60% COHB Methemoglobin, Venous 0.3 <=1.5 % [facility] Na Whole Blood 130(L) 135 - 145 mmol/L [facility] K Whole Blood 3.7 3.5 - 5.0 mmol/L [facility] Comment: Please note: Patients with WBC >100,000 may have falsely elevated Potassium levels. Contact the Clinical Chemistry Laboratory if there are any questions. ICa Whole Blood 1.15 1.15 - 1.33 mmol/L [facility] Comment: Note: ??Total bilirubin higher than 20 mg/dL may lead to falsely low ionized calcium. CL Whole Blood 95(L) 98 - 107 mmol/L [facility] Gluc Whole Bld 82 65 - 199 mg/dL [facility] Comment:Diabetes: >=200 mg/d L plus symptoms Lactate WB 1.1 0.5 - 2.2 mmol/L [facility] Blood Gas Source Venous [facility] Blood Venous Draw / Unknown 05/16/2023 4:22 AM EDT 05/16/2023 4:31 AM EDT Narrative Resulting Agency Comment Spec In Lab Bonita TOBAR CHEMISTRY ORDERABLES [facility] [place] [address] * (ABNORMAL) Differential, Automated (05/16/2023 4:20 AM EDT) Neutrophil % 84.1 % [facility] Neutrophil Absolute 6.22(H) 1.70 - 6.10 x10(3)/mc L [facility] Lymph % 5.8 % [facility] Lymphocytes Abs 0.4(L) 0.9 - 3.2 x10(3)/mc L [facility] Monocyte % 8.8 % [facility] Monocyte Abs 0.6 0.3 - 0.9 x10(3)/mc L [facility] Eos % 0.4 % [facility] Eosinophils Abs 0.0 0.0 - 0.4 x10(3)/mc L [facility] Basophil % 0.0 % [facility] Baso Absolute 0.0 0.0 - 0.1 x10(3)/mc L [facility] Immature Gran % 0.90 % [facility] Comment: Immature granulocytes(IG's)percentage and absolute count will include metamyelocytes, myelocytes, and promyelocytes. Blood smears from CBCs yielding IG's will be scanned manually for concordance. If this scan disagrees with the automated IG or if promyelocytes are noted, a manual differential will be performed. Immature Gran Absolute 0.07(H) 0.00 - 0.04 x10(3)/mc L [facility] Blood 05/16/2023 4:20 AM EDT 05/16/2023 4:29 AM EDT Narrative Resulting Agency Comment Spec In Lab James Agustin MD HEMATOLOGY ORDER JODIE Performing Organization Address City/State/[facility] Co de Phone Number [facility] [place] [address] * (ABNORMAL) Hemogram (05/16/2023 4:20 AM EDT) White Blood Cell 7.4 4.0 - 9.5 x10(3)/mc L [facility] Red Blood Cell 2.40(L) 4.00 - 5.21 x10(6)/mc L [facility] Hemoglobin 7.8(L) 11.7 - 15.5 g/dL [facility] Hematocrit 22.5(L) 35.7 - 45.8 % [facility] Mean Cell Volume 93.8 82.6 - 94.4 fL [facility] Mean Cell Hemoglobin 32.5(H) 27.1 - 32.0 pg [facility] Mean Cell Hemoglobin Concentration 34.7 31.7 - 35.0 g/dL [facility] Platelet 120(L) 145 - 357 x10(3)/mc L [facility] RDW Standard Deviation 42.9 37.0 - 46.0 fL [facility] RDW coefficient of variation 12.9 11.5 - 14.1 % [facility] Mean Platelet Volume 11.3 7.6 - 12.9 fL [facility] NRBC% auto 0.7 % [facility] NRBC Absolute 0.050(H) 0.000 - 0.000 x10(3)/mc L [facility] Blood 05/16/2023 4:20 AM EDT 05/16/2023 4:29 AM EDT Narrative Resulting Agency Comment Spec In Lab James Agustin MD HEMATOLOGY ORDER JODIE [facility] [place] [address] * (ABNORMAL) Basic Metabolic Panel (non-fasting) (05/16/2023 4:20 AM EDT) Glucose 89 65 - 199 mg/dL [facility] Comment:Diabetes: >=200 mg/d L plus symptoms Blood Urea Nitrogen 108(H) 8 - 18 mg/dL [facility] Creatinine 4.74(H) 0.70 - 1.20 mg/dL [facility] Comment:result rechecked-OLIVA Sodium 132(L) 135 - 145 mmol/L [facility] Potassium 3.9 3.5 - 5.0 mmol/L [facility] Comment: Please note: ??Patients with WBC >100,000 may have falsely elevated Potassium levels. ??For accurate Potassium quantification in these patients send serum separator tube (gold top) for subsequent determinations. ??Contact the Clinical Chemistry Laboratory if there are any questions. Chloride 95(L) 98 - 107 mmol/L [facility] Carbon Dioxide 18(L) 22 - 31 mmol/L [facility] Anion Gap 19(H) 5 - 15 mmol/L [facility] Calcium 9.2 8.5 - 10.5 mg/dL [facility] Est Glomerular Filtration Rate 10(L) >=60 mL/min/1. 73 m?? [facility] [...] ORDERABLE S Performing Organization Address [facility] Co de Phone Number [facility] [place] [address] * (ABNORMAL) Iron and TIBC (05/16/2023 4:20 AM EDT) Iron 31 30 - 150 mcg/dL [facility] TIBC 259 250 - 450 mcg/dL [facility] Iron Saturation 12(L) 20 - 50 % [facility] Blood 05/16/2023 4:20 AM EDT 05/16/2023 4:29 AM EDT Narrative Resulting Agency Comment Spec In Lab Kristopher Ayoub MD CHEMISTRY ORDERABLES Performing Organization Address [facility] Co de Phone Number [facility] [place] [address] * (ABNORMAL) Basic Metabolic Panel (non-fasting) (05/15/2023 12:50 AM EDT) Glucose 101 65 - 199 mg/dL [facility] Comment:Diabetes: >=200 mg/d L plus symptoms Blood Urea Nitrogen 109(H) 8 - 18 mg/dL [facility] Creatinine 5.62(H) 0.70 - 1.20 mg/dL [facility] Comment:result rechecked-KS Sodium 131(L) 135 - 145 mmol/L [facility] Comment:result rechecked-KS Potassium 3.7 3.5 - 5.0 mmol/L [facility] Comment: result rechecked-KS Please note: ??Patients with WBC >100,000 may have falsely elevated Potassium levels. ??For accurate Potassium quantification in these patients send serum separator tube (gold top) for subsequent determinations. ??Contact the Clinical Chemistry Laboratory if there are any questions. Chloride 92(L) 98 - 107 mmol/L [facility] Comment:result rechecked-KS Carbon Dioxide 18(L) 22 - 31 mmol/L [facility] Comment:result rechecked-KS Anion Gap 21(H) 5 - 15 mmol/L [facility] Calcium 8.9 8.5 - 10.5 mg/dL [facility] Est Glomerular Filtration Rate 8(L) >=60 mL/min/1. 73 m?? [facility] [...] MD CHEMISTRY ORDERABLE S Performing Organization Address City/State/[facility] Co de Phone Number [facility] [place] [address] * (ABNORMAL) Hemogram (05/15/2023 12:50 AM EDT) White Blood Cell 9.1 4.0 - 9.5 x10(3)/mc L [facility] Red Blood Cell 2.19(L) 4.00 - 5.21 x10(6)/mc L [facility] Hemoglobin 7.2(L) 11.7 - 15.5 g/dL [facility] Hematocrit 20.6(L) 35.7 - 45.8 % [facility] Mean Cell Volume 94.1 82.6 - 94.4 fL [facility] Mean Cell Hemoglobin 32.9(H) 27.1 - 32.0 pg [facility] Mean Cell Hemoglobin Concentration 35.0 31.7 - 35.0 g/dL [facility] Platelet 109(L) 145 - 357 x10(3)/mc L [facility] RDW Standard Deviation 43.6 37.0 - 46.0 fL [facility] RDW coefficient of variation 12.9 11.5 - 14.1 % [facility] [facility] Mean Platelet Volume 10.4 7.6 - 12.9 fL [facility] NRBC% auto 2.1 % [facility] NRBC Absolute 0.190(H) 0.000 - 0.000 x10(3)/mc L [facility] Blood 05/15/2023 12:5 0 AM EDT 05/15/2023 12:52 AM EDT Narrative Resulting Agency Comment Spec In Lab Alirio Hudson MD HEMATOLOGY ORDERABL ES Performing Organization Address City/State/[facility] Co de Phone Number [facility] [place] [address] * (ABNORMAL) BLOOD GAS 2 VENOUS (05/15/2023 12:49 AM EDT) pH, Venous 7.33 7.32 - 7.42 [facility] PCO2, Venous 37(L) 41 - 51 mmHg [facility] PO2, Venous 34 25 - 40 mmHg [facility] Bicarbonate, Venous 19.1 mmol/L [facility] Base Excess, Venous -6.8 mmol/L [facility] Hgb Blood Gas 10.8(L) 11.7 - 15.5 g/dL [facility] Oxyhemoglobin, Venous 58.1 % [facility] Carboxyhemoglob in, Venous 0.3 % [facility] Comment: Nonsmokers: 0.5-1.5% COHB Smokers: Variable, but usually less than 10% Toxic: 20-30% COHB Lethal: Greater than 60% COHB Methemoglobin, Venous 0.6 <=1.5 % [facility] Na Whole Blood 136 135 - 145 mmol/L [facility] K Whole Blood 3.7 3.5 - 5.0 mmol/L [facility] Comment: Please note: Patients with WBC >100,000 may have falsely elevated Potassium levels. Contact the Clinical Chemistry Laboratory if there are any questions. ICa Whole Blood 1.12(L) 1.15 - 1.33 mmol/L [facility] Comment: Note: ??Total bilirubin higher than 20 mg/dL may lead to falsely low ionized calcium. CL Whole Blood 95(L) 98 - 107 mmol/L [facility] Gluc Whole Bld 101 65 - 199 mg/dL [facility] Comment:Diabetes: >=200 mg/d L plus symptoms Lactate WB 1.3 0.5 - 2.2 mmol/L [facility] Flow, Mike 1.0 LPM [facility] Blood Gas Source Venous [facility] Blood 05/15/2023 12:4 9 AM EDT 05/15/2023 12:49 AM EDT Alirio Hudson MD POINT OF CARE TEST ORDERABLES Performing Organization Address City/State/[facility] Co de Phone Number [facility] [place] [address] * US Retroperitoneal Complete (05/14/2023 3:53 PM [...] PM Electronically signed by: Hayden Robledo MD, [facility] ([phone]), at 05/14/2023 4:32 PM Thank you for letting us participate in the care of this patient. If you are a health care provider and have any questions regarding this report, please contact the number above. For patients who have questions, please contact the health client care coordinator that requested your imaging first. ? Hayden Robledo, Staff Physician Electronically Signed Final Report ?? 05/14/2023 04:39 pm Narrative 05/14/2023 4:39 PM EDT Renal ? (Signed Final 05/14/2023 04:39 pm) PATIENT INFO: ID #: ? [id number] ?: ??55 (67 yrs)(F) Name: ? PURNIMA THACKER ?Visit Date: 05/14/2023 03:44 pm PERFORMED BY: Attending: ?Meena CULP, Hayden Stafford Resident: ? Nell CULP, Anand August Performed By: ? Consuelo Tello RDMS Referred By: ?ALIRIO Powell BECCA Location: ? [place] SERVICE(S) PROVIDED: URETRO - Retroperitoneal Complete - [id number] ? [id number] INDICATIONS: EVANS COMPARISON: CT: Abdomen/Pelvis 05/11/23 RIGHT [...] 05/14/2023 04:39 pm) PATIENT INFO: ID #: [id number] : 55 (67 yrs)(F) Name: PURNIMA THACKER Visit Date: 05/14/2023 03:44 pm PERFORMED BY: Attending: Hayden Robledo MD Resident: Anand Camejo MD Performed By: Consuelo Tello RDMS Referred By: ALIRIO HUDSON Location: [place] SERVICE(S) PROVIDED: URETRO - Retroperitoneal Complete - [id number] INDICATIONS: EVANS COMPARISON: CT: Abdomen/Pelvis 05/11/23 RIGHT [...] PM Electronically signed by: Hayden Robledo MD, [facility] ([phone]), at 05/14/2023 4:32 PM Thank you for letting us participate in the care of this patient. If you are a health care provider and have any questions regarding this report, please contact the number above. For patients who have questions, please contact the health client care coordinator that requested your imaging first. Hayden Robledo, Staff Physician Electronically Signed Final Report 05/14/2023 04:39 pm Alirio Hudson MD IMG US GEN ORDERABL ES * CK (05/14/2023 3:17 PM EDT) Pathologist [facility] Creatine Kinase 123 0 - 160 unit/L [facility] Blood 05/14/2023 3:17 PM EDT 05/14/2023 3:31 PM EDT Narrative Resulting Agency Comment Spec In Lab Alirio Hudson MD CHEMISTRY ORDERABLE S Performing Organization Address City/[facility]/ZIP Co de Phone Number [facility] [place] [address] * (ABNORMAL) Uric acid (05/14/2023 3:17 PM EDT) [facility] Uric Acid 14.9(H) 2.5 - 6.5 mg/dL [facility] Blood 05/14/2023 3:17 PM EDT 05/14/2023 3:31 PM EDT Narrative Resulting Agency Comment Spec In Lab Alirio Hudson MD CHEMISTRY ORDERABLE S Performing Organization Address [facility] Co de Phone Number [facility] [place] [address] * (ABNORMAL) Osmolality (05/14/2023 3:17 PM EDT) Pathologist [facility] Osmolality 311(H) 275 - 295 mOsm/kg [facility] Blood 05/14/2023 3:17 PM EDT 05/14/2023 3:31 PM EDT Narrative Resulting Agency Comment Spec In Lab Alirio Hudson MD CHEMISTRY ORDERABLE S Performing Organization Address [facility] Co de Phone Number [facility] [place] [address] * (ABNORMAL) Differential, Automated (05/14/2023 1:10 AM EDT) Neutrophil % 87.2 % [facility] Neutrophil Absolute 9.74(H) 1.70 - 6.10 x10(3)/mc L [facility] Lymph % 3.9 % [facility] Lymphocytes Abs 0.4(L) 0.9 - 3.2 x10(3)/mc L [facility] Monocyte % 7.9 % [facility] Monocyte Abs 0.9 0.3 - 0.9 x10(3)/ L [facility] Eos % 0.0 % [facility] Eosinophils Abs 0.0 0.0 - 0.4 x10(3)/ L [facility] Basophil % 0.1 % [facility] Baso Absolute 0.0 0.0 - 0.1 x10(3)/ L [facility] Immature Gran % 0.90 % [facility] Comment: Immature granulocytes(IG's)percentage and absolute count will include metamyelocytes, myelocytes, and promyelocytes. Blood smears from CBCs yielding IG's will be scanned manually for concordance. If this scan disagrees with the automated IG or if promyelocytes are noted, a manual differential will be performed. Immature Gran Absolute 0.10(H) 0.00 - 0.04 x10(3)/ L [facility] Blood 05/14/2023 1:10 AM EDT 05/14/2023 1:24 AM EDT Narrative Resulting Agency Comment Spec In Lab Bonita TOBAR HEMATOLOGY ORDERABLE S Performing Organization Address City/State/[facility] Co de Phone Number [facility] [place] [address] * (ABNORMAL) Hemogram (05/14/2023 1:10 AM EDT) White Blood Cell 11.2(H) 4.0 - 9.5 x10(3)/mc L [facility] Red Blood Cell 2.19(L) 4.00 - 5.21 x10(6)/ L [facility] Hemoglobin 7.2(L) 11.7 - 15.5 g/dL [facility] Hematocrit 20.3(L) 35.7 - 45.8 % [facility] Mean Cell Volume 92.7 82.6 - 94.4 fL [facility] Mean Cell Hemoglobin 32.9(H) 27.1 - 32.0 pg [facility] Mean Cell Hemoglobin Concentration 35.5(H) 31.7 - 35.0 g/dL [facility] Platelet 112(L) 145 - 357 x10(3)/mc L [facility] RDW Standard Deviation 41.4 37.0 - 46.0 fL [facility] RDW coefficient of variation 12.5 11.5 - 14.1 % [facility] Mean Platelet Volume 10.4 7.6 - 12.9 fL [facility] NRBC% auto 1.5 % [facility] NRBC Absolute 0.170(H) 0.000 - 0.000 x10(3)/mc L [facility] Blood 05/14/2023 1:10 AM EDT 05/14/2023 1:24 AM EDT Narrative Resulting Agency Comment Spec In Lab Bonita TOBAR HEMATOLOGY ORDERABLE S Performing Organization Address City/State/[facility] Co de Phone Number [facility] [place] [address] * (ABNORMAL) Comprehensive metabolic panel (non-fasting) (05/14/2023 1:10 AM EDT) Glucose 120 65 - 199 mg/dL [facility] Comment:Diabetes: >=200 mg/d L plus symptoms Blood Urea Nitrogen 98(H) 8 - 18 mg/dL [facility] Creatinine 4.80(H) 0.70 - 1.20 mg/dL [facility] Comment:result rechecked-ssc Sodium 132(L) 135 - 145 mmol/L [facility] Potassium 4.1 3.5 - 5.0 mmol/L [facility] Comment: Please note: ??Patients with WBC >100,000 may have falsely elevated Potassium levels. ??For accurate Potassium quantification in these patients send serum separator tube (gold top) for subsequent determinations. ??Contact the Clinical Chemistry Laboratory if there are any questions. Chloride 94(L) 98 - 107 mmol/L [facility] Carbon Dioxide 18(L) 22 - 31 mmol/L [facility] Anion Gap 20(H) 5 - 15 mmol/L [facility] Calcium 8.5 8.5 - 10.5 mg/dL [facility] Protein, Total 5.8(L) 6.1 - 8.0 g/dL [facility] Albumin 3.6 3.2 - 5.2 g/dL [facility] Aspartate Aminotransferase 319(H) 0 - 30 unit/L [facility] Alanine Aminotransferase 437(H) 0 - 30 unit/L [facility] Alkaline Phosphatase 86 35 - 105 unit/L [facility] Bilirubin, Total 0.4 0.2 - 1.3 mg/dL [facility] Est Glomerular Filtration Rate 9(L) >=60 mL/min/1. 73 m?? [facility] [...] MD CHEMISTRY ORDERABLE S Performing Organization Address City/[facility] [place] [address] * APTT (05/13/2023 10:15 AM EDT) Partial Thromboplastin Time 27 25 - 37 sec [facility] Comment: The PTT is NOT appropriate for heparin monitoring. Use the Anti-Xa level for heparin monitoring (HEP UFH) or LMWH monitoring (HEP LMW). A PTT less than 37 seconds generally indicates adequate hemostasis. Blood 05/13/2023 10:1 5 AM EDT 05/13/2023 10:46 AM EDT Narrative Resulting Agency Comment Spec In Lab Alirio Hudson MD HEMATOLOGY ORDERABL ES Performing Organization Address City/[facility]/ZIP Co de Phone Number [facility] [place] [address] * (ABNORMAL) Prothrombin Time (05/13/2023 10:15 AM EDT) Prothrombin Time 14.6(H) 9.4 - 12.5 sec [facility] International Normalization Ratio 1.3 [facility] Comment: An INR <2.0 indicates [...] Lab Alirio Hudson MD HEMATOLOGY ORDERABL ES [facility] [place] [address] * EKG 12 Lead (05/13/2023 9:22 AM EDT) Ventricular rate 92 BPM MUSE SYSTEM Atrial Rate 92 BPM MUSE SYSTEM P-R Interval 140 ms MUSE SYSTEM QRS Duration 104 ms MUSE SYSTEM Q-T Interval 384 ms MUSE SYSTEM QTC Calculated (Bezet) 474 ms MUSE SYSTEM Calculated P [place] 33 degrees MUSE SYSTEM Calculated R [place] 41 degrees MUSE SYSTEM Calculated T [place] -35 degrees MUSE SYSTEM INTERPRETATION Sinus rhythm with frequent Premature ventricular complexes Septal infarct , age undetermined ST & T wave abnormality, consider lateral ischemia Abnormal ECG When compared with ECG of 12-MAY-2023 10:10, Premature ventricular complexes are now Present I personally reviewed the tracing and edited the fellows interpretation Confirmed by fellow MD Anitha, Carissa ([id number]) on 05/13/2023 3:25:30 PM Confirmed by Maxx Best ([id number]) on 05/13/2023 8:30:56 PM MUSE SYSTEM 05/13/2023 9:22 AM EDT 05/13/2023 8:30 PM EDT Alirio Hudson MD ECG ORDERABLES MUSE SYSTEM * (ABNORMAL) Differential, Automated (05/13/2023 1:15 AM EDT) Neutrophil % 88.1 % [facility] Neutrophil Absolute 7.62(H) 1.70 - 6.10 x10(3)/mc L [facility] Lymph % 3.1 % [facility] Lymphocytes Abs 0.3(L) 0.9 - 3.2 x10(3)/mc L [facility] Monocyte % 7.9 % [facility] Monocyte Abs 0.7 0.3 - 0.9 x10(3)/mc L [facility] Eos % 0.0 % [facility] Eosinophils Abs 0.0 0.0 - 0.4 x10(3)/mc L [facility] Basophil % 0.1 % [facility] Baso Absolute 0.0 0.0 - 0.1 x10(3)/mc L [facility] Immature Gran % 0.80 % [facility] Comment: Immature granulocytes(IG's)percentage and absolute count will include metamyelocytes, myelocytes, and promyelocytes. Blood smears from CBCs yielding IG's will be scanned manually for concordance. If this scan disagrees with the automated IG or if promyelocytes are noted, a manual differential will be performed. Immature Gran Absolute 0.07(H) 0.00 - 0.04 x10(3)/mc L [facility] Blood 05/13/2023 1:15 AM EDT 05/13/2023 1:29 AM EDT Narrative Resulting Agency Comment Spec In Lab Lorri TOBAR HEMATOLOGY ORDERABLE S [facility] [place] [address] * (ABNORMAL) Hemogram (05/13/2023 1:15 AM EDT) White Blood Cell 8.6 4.0 - 9.5 x10(3)/mc L [facility] Red Blood Cell 2.37(L) 4.00 - 5.21 x10(6)/mc L [facility] Hemoglobin 7.8(L) 11.7 - 15.5 g/dL [facility] Hematocrit 22.2(L) 35.7 - 45.8 % [facility] Mean Cell Volume 93.7 82.6 - 94.4 fL [facility] Mean Cell Hemoglobin 32.9(H) 27.1 - 32.0 pg [facility] Mean Cell Hemoglobin Concentration 35.1(H) 31.7 - 35.0 g/dL [facility] Platelet 130(L) 145 - 357 x10(3)/mc L [facility] RDW Standard Deviation 41.7 37.0 - 46.0 fL [facility] RDW coefficient of variation 12.5 11.5 - 14.1 % [facility] Mean Platelet Volume 10.2 7.6 - 12.9 fL [facility] NRBC% auto 0.5 % [facility] NRBC Absolute 0.040(H) 0.000 - 0.000 x10(3)/mc L [facility] Blood 05/13/2023 1:15 AM EDT 05/13/2023 1:29 AM EDT Narrative Resulting Agency Comment Spec In Lab Lorri TOBAR HEMATOLOGY ORDERABLE S [facility] [place] [address] * (ABNORMAL) Hepatic Function Panel (05/13/2023 1:15 AM EDT) Protein, Total 5.5(L) 6.1 - 8.0 g/dL [facility] Albumin 3.0(L) 3.2 - 5.2 g/dL [facility] Aspartate Aminotransferase 792(H) 0 - 30 unit/L [facility] Alanine Aminotransferase 903(H) 0 - 30 unit/L [facility] Alkaline Phosphatase 85 35 - 105 unit/L [facility] Bilirubin, Total 0.5 0.2 - 1.3 mg/dL [facility] Bilirubin, Direct 0.3 0.0 - 0.3 mg/dL [facility] Blood 05/13/2023 1:15 AM EDT 05/13/2023 1:29 AM EDT Narrative Resulting Agency Comment Spec In Lab Alirio Hudson MD CHEMISTRY ORDERABLE S [facility] [place] [address] * (ABNORMAL) Basic Metabolic Panel (non-fasting) (05/13/2023 1:15 AM EDT) Glucose 107 65 - 199 mg/dL [facility] Comment:Diabetes: >=200 mg/d L plus symptoms Blood Urea Nitrogen 82(H) 8 - 18 mg/dL [facility] Creatinine 3.15(H) 0.70 - 1.20 mg/dL [facility] Comment:result rechecked-OG Sodium 132(L) 135 - 145 mmol/L [facility] Potassium 3.8 3.5 - 5.0 mmol/L [facility] Comment: Please note: ??Patients with WBC >100,000 may have falsely elevated Potassium levels. ??For accurate Potassium quantification in these patients send serum separator tube (gold top) for subsequent determinations. ??Contact the Clinical Chemistry Laboratory if there are any questions. Chloride 95(L) 98 - 107 mmol/L [facility] Carbon Dioxide 20(L) 22 - 31 mmol/L [facility] Anion Gap 17(H) 5 - 15 mmol/L [facility] Calcium 8.3(L) 8.5 - 10.5 mg/dL [facility] Est Glomerular Filtration Rate 16(L) >=60 mL/min/1. 73 m?? [facility] [...] Lab Alirio Hudson MD CHEMISTRY ORDERABLE S [facility] [place] [address] * (ABNORMAL) BLOOD GAS 2 ARTERIAL (05/12/2023 3:57 PM EDT) pH, Arterial 7.39 7.35 - 7.45 [facility] PCO2, Arterial 33(L) 35 - 45 mmHg [facility] PO2, Arterial 101 85 - 104 mmHg [facility] Bicarbonate, Arterial 19.5(L) 20.0 - 26.0 mmol/L [facility] Base Excess, Arterial -5.5(L) -3.0 - 3.0 mmol/L [facility] Hgb Blood Gas 9.8(L) 11.7 - 15.5 g/dL [facility] Oxyhemoglobin, Arterial 95.2 94.0 - 97.0 % [facility] Carboxyhemoglob in, Arterial 0.2 % [facility] Comment: Nonsmokers: 0.5-1.5% COHB Smokers: Variable, but usually less than 10% Toxic: 20-30% COHB Lethal: Greater than 60% COHB Methemoglobin, Arterial 0.8 <=1.5 % [facility] Na Whole Blood 129(L) 135 - 145 mmol/L [facility] K Whole Blood 3.8 3.5 - 5.0 mmol/L [facility] Comment: Please note: Patients with WBC >100,000 may have falsely elevated Potassium levels. Contact the Clinical Chemistry Laboratory if there are any questions. ICa Whole Blood 1.05(L) 1.15 - 1.33 mmol/L [facility] Comment: Note: ??Total bilirubin higher than 20 mg/dL may lead to falsely low ionized calcium. CL Whole Blood 96(L) 98 - 107 mmol/L [facility] Gluc Whole Bld 178 65 - 199 mg/dL [facility] Comment:Diabetes: >=200 mg/d L plus symptoms. Lactate WB 1.5 0.5 - 2.2 mmol/L [facility] FIO2 Art 40 % [facility] PF Ratio Art 252 [facility] Blood 05/12/2023 3:57 PM EDT 05/12/2023 3:57 PM EDT Alirio Hudson MD POINT OF CARE TEST ORDERABLES Performing Organization Address [facility] Co de Phone Number [facility] [place] [address] * (ABNORMAL) Coox2 (05/12/2023 2:25 PM EDT) pO2, Coox [address] [facility] Hgb Blood Gas 9.5(L) 11.7 - 15.5 g/dL [facility] Oxyhemoglobin, Coox 59.9 % [facility] Carboxyhemoglo bin, Coox 0.3 % [facility] Comment: Nonsmokers: 0.5-1.5% COHB Smokers: Variable, but usually less than 10% Toxic: 20-30% COHB Lethal: Greater than 60% COHB Methemoglobin, Coox 0.7 <=1.5 % [facility] Source Coox Mixed Venous [facility] Blood 05/12/2023 2:25 PM EDT 05/12/2023 2:25 PM EDT Alirio Hudson MD POINT OF CARE TEST ORDERABLES Performing Organization Address City/[facility] Co de Phone Number [facility] [place] [address] * (ABNORMAL) BLOOD GAS 2 ARTERIAL (05/12/2023 2:23 PM EDT) pH, Arterial 7.37 7.35 - 7.45 [facility] PCO2, Arterial 36 35 - 45 mmHg [facility] PO2, Arterial 102 85 - 104 mmHg [facility] Bicarbonate, Arterial 20.4 20.0 - 26.0 mmol/L [facility] Base Excess, Arterial -4.8(L) -3.0 - 3.0 mmol/L [facility] Hgb Blood Gas 12.7 11.7 - 15.5 g/dL [facility] Oxyhemoglobin, Arterial 95.4 94.0 - 97.0 % [facility] Carboxyhemoglob in, Arterial 0.3 % [facility] Comment: Nonsmokers: 0.5-1.5% COHB Smokers: Variable, but usually less than 10% Toxic: 20-30% COHB Lethal: Greater than 60% COHB Methemoglobin, Arterial 0.7 <=1.5 % [facility] Na Whole Blood 129(L) 135 - 145 mmol/L [facility] K Whole Blood 3.7 3.5 - 5.0 mmol/L [facility] Comment: Please note: Patients with WBC >100,000 may have falsely elevated Potassium levels. Contact the Clinical Chemistry Laboratory if there are any questions. ICa Whole Blood 1.05(L) 1.15 - 1.33 mmol/L [facility] Comment: Note: ??Total bilirubin higher than 20 mg/dL may lead to falsely low ionized calcium. CL Whole Blood 95(L) 98 - 107 mmol/L [facility] Gluc Whole Bld 168 65 - 199 mg/dL [facility] Comment:Diabetes: >=200 mg/d L plus symptoms. Lactate WB 1.8 0.5 - 2.2 mmol/L [facility] FIO2 Art 40 % [facility] PF Ratio Art 255 [facility] Blood 05/12/2023 2:23 PM EDT 05/12/2023 2:23 PM EDT Alirio Hudson MD POINT OF CARE TEST ORDERABLES Performing Organization Address City/State/[facility] Co de Phone Number [facility] [place] [address] * (ABNORMAL) Troponin (05/12/2023 2:05 PM EDT) Troponin-T, High Sensitivity 1,022(H) <=14 ng/L [facility] Comment: This patient's troponin T [...] troponin value can be found in the [facility] Laboratory Test Catalog Troponin - [facility] Laboratory Test Catalog Reference: Fourth [place] Definition of Myocardial Infarction. Journal of the [place] [employer] 2018;72:2651-5802 Blood 05/12/2023 2:05 PM EDT 05/12/2023 2:14 PM EDT Narrative Resulting Agency Comment Spec In Lab Alirio Hudson MD CHEMISTRY ORDERABLE S Performing Organization Address [facility] Co de Phone Number [facility] [place] [address] * (ABNORMAL) Hemoglobin (05/12/2023 2:05 PM EDT) Hemoglobin 8.5(L) 11.7 - 15.5 g/dL [facility] Blood 05/12/2023 2:05 PM EDT 05/12/2023 2:14 PM EDT Narrative Resulting Agency Comment Spec In Lab Alirio Hudson MD HEMATOLOGY ORDERABL ES Performing Organization Address [facility] Co de Phone Number [facility] [place] [address] * Potassium (05/12/2023 2:05 PM EDT) Potassium 3.9 3.5 - 5.0 mmol/L [facility] [...] MD CHEMISTRY ORDERABLE S Performing Organization Address City/State/[facility] Co de Phone Number [facility] [place] [address] * (ABNORMAL) BLOOD GAS 2 ARTERIAL (05/12/2023 11:05 AM EDT) pH, Arterial 7.34(L) 7.35 - 7.45 [facility] PCO2, Arterial 42 35 - 45 mmHg [facility] PO2, Arterial 73(L) 85 - 104 mmHg [facility] Bicarbonate, Arterial 22.1 20.0 - 26.0 mmol/L [facility] Base Excess, Arterial -3.6(L) -3.0 - 3.0 mmol/L [facility] Hgb Blood Gas 9.3(L) 11.7 - 15.5 g/dL [facility] Oxyhemoglobin, Arterial 89.3(L) 94.0 - 97.0 % [facility] Carboxyhemoglob in, Arterial 0.2 % [facility] Comment: Nonsmokers: 0.5-1.5% COHB Smokers: Variable, but usually less than 10% Toxic: 20-30% COHB Lethal: Greater than 60% COHB Methemoglobin, Arterial 0.9 <=1.5 % [facility] Na Whole Blood 131(L) 135 - 145 mmol/L [facility] K Whole Blood 3.8 3.5 - 5.0 mmol/L [facility] Comment: Please note: Patients with WBC >100,000 may have falsely elevated Potassium levels. Contact the Clinical Chemistry Laboratory if there are any questions. ICa Whole Blood 1.04(L) 1.15 - 1.33 mmol/L [facility] Comment: Note: ??Total bilirubin higher than 20 mg/dL may lead to falsely low ionized calcium. CL Whole Blood 96(L) 98 - 107 mmol/L [facility] Gluc Whole Bld 152 65 - 199 mg/dL [facility] Comment:Diabetes: >=200 mg/d L plus symptoms. Lactate WB 2.8(H) 0.5 - 2.2 mmol/L [facility] FIO2 Art 40 % [facility] PF Ratio Art 182 [facility] Blood 05/12/2023 11:0 5 AM EDT 05/12/2023 11:05 AM EDT Alirio Hudson MD POINT OF CARE TEST ORDERABLES [facility] [address] [place] [address] * (ABNORMAL) BLOOD GAS 2 ARTERIAL (05/12/2023 10:14 AM EDT) pH, Arterial 7.18(Criti gabrielle) 7.35 - 7.45 [facility] Comment:Noted by band instrument maker. PCO2, Arterial 45 35 - 45 mmHg [facility] PO2, Arterial 186(H) 85 - 104 mmHg [facility] Bicarbonate, Arterial 16.2(L) 20.0 - 26.0 mmol/L [facility] Base Excess, Arterial -12.2(L) -3.0 - 3.0 mmol/L [facility] Hgb Blood Gas 10.0(L) 11.7 - 15.5 g/dL [facility] Oxyhemoglobin, Arterial 97.0 94.0 - 97.0 % [facility] Carboxyhemoglob in, Arterial 0.2 % [facility] Comment: Nonsmokers: 0.5-1.5% COHB Smokers: Variable, but usually less than 10% Toxic: 20-30% COHB Lethal: Greater than 60% COHB Methemoglobin, Arterial 0.9 <=1.5 % [facility] Na Whole Blood 129(L) 135 - 145 mmol/L [facility] K Whole Blood 3.6 3.5 - 5.0 mmol/L [facility] Comment: Please note: Patients with WBC >100,000 may have falsely elevated Potassium levels. Contact the Clinical Chemistry Laboratory if there are any questions. ICa Whole Blood 1.10(L) 1.15 - 1.33 mmol/L [facility] Comment: Note: ??Total bilirubin higher than 20 mg/dL may lead to falsely low ionized calcium. CL Whole Blood 97(L) 98 - 107 mmol/L [facility] Gluc Whole Bld 161 65 - 199 mg/dL [facility] Comment:Diabetes: >=200 mg/d L plus symptoms. Lactate WB 3.3(H) 0.5 - 2.2 mmol/L [facility] FIO2 Art 100 % [facility] PF Ratio Art 186 [facility] Blood 05/12/2023 10:1 4 AM EDT 05/12/2023 10:14 AM EDT Alirio Hudson MD POINT OF CARE TEST ORDERABLES Performing Organization Address City/[facility] Co de Phone Number [facility] [place] [address] * EKG 12 Lead (05/12/2023 10:10 AM EDT) Ventricular rate 116 BPM MUSE SYSTEM Atrial Rate 116 BPM MUSE SYSTEM P-R Interval 158 ms MUSE SYSTEM QRS Duration 114 ms MUSE SYSTEM Q-T Interval 348 ms MUSE SYSTEM QTC Calculated (Bezet) 483 ms MUSE SYSTEM Calculated P [place] 37 degrees MUSE SYSTEM Calculated R [place] 31 degrees MUSE SYSTEM Calculated T [place] -138 degrees MUSE SYSTEM INTERPRETATION Sinus tachycardia [...] interpretation Confirmed by fellow MD Anuja, Jim ([id number]) on 05/12/2023 1:04:20 PM Confirmed by MD Villareal Danette ([id number]) on 05/12/2023 9:28:34 PM MUSE SYSTEM 05/12/2023 [...] questions please contact the health client care coordinator that requested your imaging first. ? Electronically signed by: Chyna Johnson MD, [facility] ??([phone]), at 05/12/2023 10:08 AM Narrative 05/12/2023 10:08 AM EDT EXAMINATION: XR CHEST ONE VIEW CLINICAL HISTORY: Post TAVR TECHNIQUE: 1 view of the chest COMPARISON: Chest radiograph from earlier today FINDINGS: Interval placement of endotracheal tube with tip terminating 2 cm above the shira. Interval placement of enteric tube projecting along the expected course of the esophagus and outside the szjms-al-wmot. Interval retraction of right IJ approach pulmonary [...] expected course ofthe esophagus and outside the qqlyy-xc-aopx. Interval retraction of right IJ approach pulmonary [...] have questions please contactthe health client care coordinator that requested your imaging first. Alirio Hudson MD IMG DX ORDERABLES * ECHO LMTD W/O CONTRAST W LMTD SPEC DOPP COLOR DOPP (05/12/2023 9:23 AM EDT) EF 20 HEARTLAB SYSTEM Anatomical Region Laterality Modality Cardiac Other 05/12/2023 7:33 AM EDT Narrative 05/12/2023 10:18 AM EDT ? Echocardiogram Report Name: PURNIMA THACKER ?Study Date: 05/12/2023 07:33 AMBP: 96/63 mmHg ? Patient Location: [place] CA06 A : 1955 ? Height: 154 cm ? Account: [id number] Age: 67 yrs ? Weight: 75 kg Gender: Female ?BSA: 1.7 m2 Ordering Physician: RADHA HOLLINS Referring Physician: RADHA HOLLINS Performed By: Dilma Bee RDCS Reason For Study: Guidance for TAVR procedure Exam Location: [facility]. Interpretation Summary PRE TAVR: There [...] mL/m2. POST TAVR: Normal function of the pfwro-ao-gidkb prosthesis. See below for hemodynamic parameters. Slight improvement in left and right ventricular systolic function. LVEF now 20-25%. No pericardial effusion. See report for additional findings. Procedure Limited - 52428. Doppler - 38105. Color Doppler - 95071. Left Ventricle Left ventricle is of normal [...] Date: 307:33 AMBP: 96/63 mmHg Patient Location: [address] : 1955 Height: 154 cm Account: [id number] Age: 67 yrs Weight: 75 kg Gender: Female BSA: 1.7 m2 Ordering Physician: RADHA HOLLINS Referring Physician: RADHA HOLLINS Performed By: Dilma Bee RDCS Reason For Study: Guidance for TAVR procedure Exam Location: [facility]. Interpretation Summary PRE TAVR: There [...] 28mL/m2. POST TAVR: Normal function of the mekgh-uc-undlq prosthesis. See belowfor hemodynamic parameters. Slight improvement in left and right ventricularsystolic function. LVEF now 20-25%. No pericardial effusion. See report for additional findings. Procedure Limited - 10335. Doppler - 15367. Color Doppler - 17959. Left Ventricle Left ventricle is of normal [...] Modality Other Narrative 05/12/2023 2:37 PM EDT ?[facility] ? Cardiac Catheterization/Intervention Report ? Patient Name: Kirstie, Purnima M. ? Procedure Date: 05/12/2023 ? A #: [id number] ? Primary Physician: Antelmo Sharma ? Case #: [id number] ? File Name: [id number] ? Catheterization Order Number: [id number] ? [facility] ? Final Report [place], [place] ? Patient Name: ? Purnima M. Kirstie ? ID#: ?[id number] ? : ?1955 ? Procedure Date: ? May 12, 2023 ? Case #: ? [id number] ? Room: ? 6 ? Case Physicians: ?Antelmo Sharma M.D. ?Start: ?08:03 ?Alirio Hudson M.D. ?Admission: ??05/08/2023 ?Lynda Mcgowan M.D. ? Discharge: ??05/22/2023 ?Fellow: ? Rebekah Tejeda M.D. ? Referring Physician: ??Mario Alberto Chin M.D. ? Procedures: ?* Coronary Angiography ?* Left Heart Catheterization ?* Coronary Stent Insertion ?* Transcatheter Aortic Valve Replacement ?* Vascular Closure Device Deployment ?* Temporary Pacemaker Insertion In Museum Exhibit Designer ?* Endotracheal Intubation By Non-Cath Physician [...] was designated as ASA Class IV. The [facility] clinical ?frailty scale is 4: [...] ??A premounted 4.00 x 30 mm Nils Meservey (MINNA) was ? deployed with a maximum [...] calculated STS risk score was 30.1%. A ccmwq-po-dlmyj ?procedure was performed on the pre-existing bioprosthetic stented ?prosthesis. The priority of the spwyh-fm-pkvuy procedure was Elective. ?The procedure was performed [...] Lai 3 Ultra RESILIA 23 mm THV (s/b=[id number]) transcatheter ?valve was inserted using standard technique. [...] nor was it given in the ?clinical lab clerk. ?Recommended anti-platelet/anti-thrombotic regimen: ?Continue aspirin 81 mg daily for indefinitely. ?These recommendations are made at the time of the intervention. Patient ?and provider preferences or a changing clinical situation may require ?modification of this regimen. Consult [facility] Interventional Cardiology for ?questions. ? Conclusions: ?* [...] regimen. ? Comments: ?Successful right transfemoral TAVR Nxhnf-kl-Gcedx with a 23 mm Lai 3 ?THV. [...] access site angiography, ?temporary pacemaker in clinical lab clerk, intubation-non cath physician, vascular ?closure device, transthoracic echo ??and TAVR. Dr. Alirio Hudson M.D. ?performed the left heart catheterization, access site angiography, ?temporary pacemaker in clinical lab clerk, vascular closure device, transthoracic ?echo , TAVR and CPR during cath. Dr. Lynda Mcgowan M.D. performed the ABG, ?anesthesia and intubation-non cath physician. ? Antelmo Sharma M.D. ? Electronically Signed by: Antelmo Sharma M.D. ? Report Finalized: 05/12/2023 ??14:31 ? Report Last Ammended: 07/01/2023 ??11:30 ? Procedure Note Antelmo Sharma MD - 07/01/2023 [facility] Cardiac Catheterization/Intervention Report Patient Name: Purnima Thacker Procedure Date: 05/12/2023 A #: [id number] Primary Physician: Antelmo Sharma Case #: [id number] File Name: [id number] Catheterization Order Number: [id number] [facility] FinalReport [place], [place] Patient Name: Purnima Thacker ID#:[id number] :1955 Procedure Date: May 12, 2023 Case #: [id number] Room: 6 Case Physicians: Antelmo Sharma M.D. Start: 08:03 Alirio Hudson M.D. Admission:05/08/2023 Lynda Mcgowan M.D. Discharge:05/22/2023 Fellow: Rebekah Tejeda M.D. Referring Physician: Mario Alberto Chin M.D. Procedures: * Coronary Angiography * Left Heart Catheterization * Coronary Stent Insertion * Transcatheter Aortic Valve Replacement * Vascular Closure Device Deployment * Temporary Pacemaker Insertion In Museum [employer]er * Endotracheal Intubation By Non-Cath Physician [...] A premounted 4.00 x 30 mm Nils Meservey (MINNA) was deployed with a maximum inflation [...] calculated STS risk score was 30.1%. A jnopo-wu-tlprr procedure was performed on the pre-existing bioprosthetic stented prosthesis. The priority of the letvx-fz-uozoq procedure wasElective. The procedure was performed under Moderate sedation performed byLynda Mcgowan M.D. (see anesthesia report for additional details). Alirio Hudson M.D. participated in the case (see Cardiac Surgery reportfor additional details). The TAVR sheath was a 14 Fr Corona eSheath Introducer and theaccess site was femoral. Rapid ventricular pacing was performed. An Corona Lai 3 Ultra RESILIA 23 mm THV (s/x=[id number])transcatheter valve was inserted using standard technique. The [...] to nor was it given inthe clinical lab clerk. Recommended anti-platelet/anti-thrombotic regimen: Continue aspirin 81 mg daily for indefinitely. These recommendations are made at the time of the intervention.Patient and provider preferences or a changing clinical situation mayrequire modification of this regimen. Consult [facility] Interventional Cardiologyfor questions. Conclusions: * Nonobstructive disease [...] this regimen. Comments: Successful right transfemoral TAVR Upgnm-ps-Llvdg with a 23 mmSapien 3 THV. We [...] access site angiography, temporary pacemaker in clinical lab clerk, intubation-non cath physician,vascular closure device, transthoracic echo and TAVR. Dr. Alirio Hudson M.D. performed the left heart catheterization, access site angiography, temporary pacemaker in clinical lab clerk, vascular closure device,transthoracic echo , TAVR and [...] pH, POC 7.20(Crit ical) 7.35 - 7.45 [facility] Comment:Critical value OK, C C Lab. pCO2, POC 42 35 - 45 mmHg [facility] pO2, POC 260(H) 85 - 104 mmHg [facility] Base Excess, POC -11.0(L) -3.0 - 3.0 mmol/L [facility] Bicarbonate, POC 16.7(L) 20.0 - 26.0 mmol/L [facility] Sodium, POC 129(L) 135 - 145 mmol/L [facility] POC Potassium 3.8 3.5 - 5.0 mmol/L [facility] Ionized Calcium, POC 1.12(L) 1.15 - 1.33 mmol/L [facility] POC Hematocrit 23.0(L) 34.0 - 45.0 % [facility] POC Calc Hgb 7.8(L) 11.2 - 15.7 g/dL [facility] Comment:The calculation of h emoglobin from hematocrit assumes a normal MCHC. POC Bgas Loc CC Lab [facility] Blood 05/12/2023 8:50 AM EDT 05/13/2023 12:00 PM EDT Alirio Hudson MD CHEMISTRY ORDERABLE S [facility] [place] [address] * (ABNORMAL) Point of Care Blood Gas Historical (05/12/2023 8:10 AM EDT) pH, POC 7.27(Crit ical) 7.35 - 7.45 [facility] Comment:Critical value OK, C C Lab. pCO2, POC 37 35 - 45 mmHg [facility] pO2, POC 29(Critic al) 85 - 104 mmHg [facility] Comment:Critical value OK, C C Lab. Base Excess, POC -10.0(L) -3.0 - 3.0 mmol/L [facility] Bicarbonate, POC 16.7(L) 20.0 - 26.0 mmol/L [facility] Sodium, POC 123(L) 135 - 145 mmol/L [facility] POC Potassium 4.0 3.5 - 5.0 mmol/L [facility] Ionized Calcium, POC 1.12(L) 1.15 - 1.33 mmol/L [facility] POC Hematocrit 27.0(L) 34.0 - 45.0 % [facility] POC Calc Hgb 9.2(L) 11.2 - 15.7 g/dL [facility] Comment:The calculation of h emoglobin from hematocrit assumes a normal MCHC. POC Bgas Loc CC Lab [facility] Blood 05/12/2023 8:10 AM EDT 05/13/2023 12:00 PM EDT Alirio Hudson MD CHEMISTRY ORDERABLE S [facility] [place] [address] * (ABNORMAL) Lactate, whole blood, send to lab ([facility] (05/12/2023 7:00 AM EDT) Lactate WB 2.4(H) 0.5 - 2.2 mmol/L [facility] Blood 05/12/2023 7:00 AM EDT 05/12/2023 7:09 AM EDT Narrative Resulting Agency Comment Spec In Lab Radha Hollins MD CHEMISTRY ORDERABL ES [facility] [place] [address] * (ABNORMAL) Comprehensive metabolic panel (non-fasting) (05/12/2023 6:00 AM EDT) Glucose 167 65 - 199 mg/dL [facility] Comment:Diabetes: >=200 mg/d L plus symptoms Blood Urea Nitrogen 67(H) 8 - 18 mg/dL [facility] Creatinine 2.01(H) 0.70 - 1.20 mg/dL [facility] Sodium 131(L) 135 - 145 mmol/L [facility] Potassium 4.3 3.5 - 5.0 mmol/L [facility] Comment: Please note: ??Patients with WBC >100,000 may have falsely elevated Potassium levels. ??For accurate Potassium quantification in these patients send serum separator tube (gold top) for subsequent determinations. ??Contact the Clinical Chemistry Laboratory if there are any questions. Chloride 97(L) 98 - 107 mmol/L [facility] Carbon Dioxide 14(L) 22 - 31 mmol/L [facility] Anion Gap 20(H) 5 - 15 mmol/L [facility] Calcium 8.6 8.5 - 10.5 mg/dL [facility] Protein, Total 6.3 6.1 - 8.0 g/dL [facility] Albumin 3.5 3.2 - 5.2 g/dL [facility] Aspartate Aminotransferase 1,435(H) 0 - 30 unit/L [facility] Alanine Aminotransferase 1,174(H) 0 - 30 unit/L [facility] Alkaline Phosphatase 100 35 - 105 unit/L [facility] Bilirubin, Total 0.9 0.2 - 1.3 mg/dL [facility] Est Glomerular Filtration Rate 27(L) [...] CHEMISTRY ORDERABL ES Performing Organization Address City/[facility] Co de Phone Number [facility] [place] [address] * (ABNORMAL) Coox2 (05/12/2023 5:08 AM EDT) pO2, Coox 24 mmHg [facility] Hgb Blood Gas 10.4(L) 11.7 - 15.5 g/dL [facility] Oxyhemoglobin, Coox 30.7 % [facility] Carboxyhemoglo bin, Coox 0.3 % [facility] Comment: Nonsmokers: 0.5-1.5% COHB Smokers: Variable, but usually less than 10% Toxic: 20-30% COHB Lethal: Greater than 60% COHB Methemoglobin, Coox 0.8 <=1.5 % [facility] Source Coox Mixed Venous [facility] Blood 05/12/2023 5:08 AM EDT 05/12/2023 5:08 AM EDT Radha Hollins MD POINT OF CARE TEST ORDERABLES Performing Organization Address City/[facility] Co de Phone Number [facility] [place] [address] * (ABNORMAL) Coox2 (05/12/2023 3:21 AM EDT) pO2, Coox 25 mmHg [facility] Hgb Blood Gas 10.8(L) 11.7 - 15.5 g/dL [facility] Oxyhemoglobin, Coox 32.7 % [facility] Carboxyhemoglo bin, Coox 0.3 % [facility] Comment: Nonsmokers: 0.5-1.5% COHB Smokers: Variable, but usually less than 10% Toxic: 20-30% COHB Lethal: Greater than 60% COHB Methemoglobin, Coox 0.7 <=1.5 % [facility] Source Coox Mixed Venous [facility] Blood 05/12/2023 3:21 AM EDT 05/12/2023 3:21 AM EDT Radha Hollins MD POINT OF CARE TEST ORDERABLES [facility] [place] [address] * (ABNORMAL) BLOOD GAS 2 ARTERIAL (05/12/2023 3:18 AM EDT) pH, Arterial 7.34(L) 7.35 - 7.45 [facility] PCO2, Arterial 30(L) 35 - 45 mmHg [facility] PO2, Arterial 72(L) 85 - 104 mmHg [facility] Bicarbonate, Arterial 16.0(L) 20.0 - 26.0 mmol/L [facility] Base Excess, Arterial -9.8(L) -3.0 - 3.0 mmol/L [facility] Hgb Blood Gas 11.0(L) 11.7 - 15.5 g/dL [facility] Oxyhemoglobin, Arterial 89.8(L) 94.0 - 97.0 % [facility] Carboxyhemoglob in, Arterial 0.3 % [facility] Comment: Nonsmokers: 0.5-1.5% COHB Smokers: Variable, but usually less than 10% Toxic: 20-30% COHB Lethal: Greater than 60% COHB Methemoglobin, Arterial 0.7 <=1.5 % [facility] Na Whole Blood 131(L) 135 - 145 mmol/L [facility] K Whole Blood 4.2 3.5 - 5.0 mmol/L [facility] Comment: Please note: Patients with WBC >100,000 may have falsely elevated Potassium levels. Contact the Clinical Chemistry Laboratory if there are any questions. ICa Whole Blood 1.12(L) 1.15 - 1.33 mmol/L [facility] Comment: Note: ??Total bilirubin higher than 20 mg/dL may lead to falsely low ionized calcium. CL Whole Blood 100 98 - 107 mmol/L [facility] Gluc Whole Bld 160 65 - 199 mg/dL [facility] Comment:Diabetes: >=200 mg/d L plus symptoms. Lactate WB 2.7(H) 0.5 - 2.2 mmol/L [facility] Flow Art 5.[address] [facility] Blood 05/12/2023 3:18 AM EDT 05/12/2023 3:18 AM EDT Radha Hollins MD POINT OF CARE TEST ORDERABLES Performing Organization Address [facility] Co de Phone Number [facility] [place] [address] * (ABNORMAL) Coox2 (05/12/2023 1:14 AM EDT) pO2, Coox [address] [facility] Hgb Blood Gas 10.9(L) 11.7 - 15.5 g/dL [facility] Oxyhemoglobin, Coox 37.3 % [facility] Carboxyhemoglo bin, Coox 0.3 % [facility] Comment: Nonsmokers: 0.5-1.5% COHB Smokers: Variable, but usually less than 10% Toxic: 20-30% COHB Lethal: Greater than 60% COHB Methemoglobin, Coox 0.5 <=1.5 % [facility] Source Coox Mixed Venous [facility] Blood 05/12/2023 1:14 AM EDT 05/12/2023 1:14 AM EDT Radha Hollins MD POINT OF CARE TEST ORDERABLES Performing Organization Address [facility] Co de Phone Number [facility] [place] [address] * (ABNORMAL) BLOOD GAS 2 ARTERIAL (05/12/2023 1:06 AM EDT) pH, Arterial 7.34(L) 7.35 - 7.45 [facility] PCO2, Arterial 30(L) 35 - 45 mmHg [facility] PO2, Arterial 81(L) 85 - 104 mmHg [facility] Bicarbonate, Arterial 15.7(L) 20.0 - 26.0 mmol/L [facility] Base Excess, Arterial -10.1(L) -3.0 - 3.0 mmol/L [facility] Hgb Blood Gas 11.0(L) 11.7 - 15.5 g/dL [facility] Oxyhemoglobin, Arterial 92.3(L) 94.0 - 97.0 % [facility] Carboxyhemoglob in, Arterial 0.2 % [facility] Comment: Nonsmokers: 0.5-1.5% COHB Smokers: Variable, but usually less than 10% Toxic: 20-30% COHB Lethal: Greater than 60% COHB Methemoglobin, Arterial 0.6 <=1.5 % [facility] Na Whole Blood 131(L) 135 - 145 mmol/L [facility] K Whole Blood 4.2 3.5 - 5.0 mmol/L [facility] Comment: Please note: Patients with WBC >100,000 may have falsely elevated Potassium levels. Contact the Clinical Chemistry Laboratory if there are any questions. ICa Whole Blood 1.13(L) 1.15 - 1.33 mmol/L [facility] Comment: Note: ??Total bilirubin higher than 20 mg/dL may lead to falsely low ionized calcium. CL Whole Blood 99 98 - 107 mmol/L [facility] Gluc Whole Bld 132 65 - 199 mg/dL [facility] Comment:Diabetes: >=200 mg/d L plus symptoms. Lactate WB 2.7(H) 0.5 - 2.2 mmol/L [facility] Flow Art 5.0 LPM [facility] Blood 05/12/2023 1:06 AM EDT 05/12/2023 1:06 AM EDT Radha Hollins MD POINT [place] [address] * (ABNORMAL) Differential, Automated (05/12/2023 1:05 AM EDT) Neutrophil % 83.3 % [facility] Neutrophil Absolute 7.49(H) 1.70 - 6.10 x10(3)/mc L [facility] Lymph % 7.1 % [facility] Lymphocytes Abs 0.6(L) 0.9 - 3.2 x10(3)/mc L [facility] Monocyte % 8.9 % [facility] Monocyte Abs 0.8 0.3 - 0.9 x10(3)/mc L [facility] Eos % 0.0 % [facility] Eosinophils Abs 0.0 0.0 - 0.4 x10(3)/mc L [facility] Basophil % 0.1 % [facility] Baso Absolute 0.0 0.0 - 0.1 x10(3)/mc L [facility] Immature Gran % 0.60 % [facility] Comment: Immature granulocytes(IG's)percentage and absolute count will include metamyelocytes, myelocytes, and promyelocytes. Blood smears from CBCs yielding IG's will be scanned manually for concordance. If this scan disagrees with the automated IG or if promyelocytes are noted, a manual differential will be performed. Immature Gran Absolute 0.05(H) 0.00 - 0.04 x10(3)/mc L [facility] Blood 05/12/2023 1:05 AM EDT 05/12/2023 1:15 AM EDT Narrative Resulting Agency Comment Spec In Lab Gianni Fletcher MD [place] [address] * (ABNORMAL) Hemogram (05/12/2023 1:05 AM EDT) White Blood Cell 9.0 4.0 - 9.5 x10(3)/mc L [facility] Red Blood Cell 3.01(L) 4.00 - 5.21 x10(6)/mc L [facility] Hemoglobin 9.8(L) 11.7 - 15.5 g/dL [facility] Hematocrit 28.7(L) 35.7 - 45.8 % [facility] Mean Cell Volume 95.3(H) 82.6 - 94.4 fL [facility] Mean Cell Hemoglobin 32.6(H) 27.1 - 32.0 pg [facility] Mean Cell Hemoglobin Concentration 34.1 31.7 - 35.0 g/dL [facility] Platelet 186 145 - 357 x10(3)/mc L [facility] RDW Standard Deviation 43.7 37.0 - 46.0 fL [facility] RDW coefficient of variation 12.7 11.5 - 14.1 % [facility] Mean Platelet Volume 10.3 7.6 - 12.9 fL [facility] NRBC% auto 0.0 % [facility] NRBC Absolute 0.000 0.000 - 0.000 x10(3)/ L [facility] Blood 05/12/2023 1:05 AM EDT 05/12/2023 1:15 AM EDT Narrative Resulting Agency Comment Spec In Lab Gianni Fletcher MD HEMATOLOGY ORDERABLE S [facility] [place] [address] * (ABNORMAL) Comprehensive metabolic panel (non-fasting) (05/12/2023 1:05 AM EDT) Glucose 141 65 - 199 mg/dL [facility] Comment:Diabetes: >=200 mg/d L plus symptoms Blood Urea Nitrogen 63(H) 8 - 18 mg/dL [facility] Creatinine 1.86(H) 0.70 - 1.20 mg/dL [facility] Sodium 131(L) 135 - 145 mmol/L [facility] Potassium 4.4 3.5 - 5.0 mmol/L [facility] Comment: Please note: ??Patients with WBC >100,000 may have falsely elevated Potassium levels. ??For accurate Potassium quantification in these patients send serum separator tube (gold top) for subsequent determinations. ??Contact the Clinical Chemistry Laboratory if there are any questions. Chloride 96(L) 98 - 107 mmol/L [facility] Carbon Dioxide 14(L) 22 - 31 mmol/L [facility] Anion Gap 21(H) 5 - 15 mmol/L [facility] Calcium 9.0 8.5 - 10.5 mg/dL [facility] Protein, Total 6.6 6.1 - 8.0 g/dL [facility] Albumin 3.9 3.2 - 5.2 g/dL [facility] Aspartate Aminotransferase 1,227(H) 0 - 30 unit/L [facility] Alanine Aminotransferase 1,097(H) 0 - 30 unit/L [facility] Alkaline Phosphatase 108(H) 35 - 105 unit/L [facility] Bilirubin, Total 1.0 0.2 - 1.3 mg/dL [facility] Est Glomerular Filtration Rate 29(L) >=60 mL/min/1. 73 m?? [facility] [...] Lab Radha Hollins MD CHEMISTRY ORDERABL ES [facility] [place] [address] * XR Chest One View (05/12/2023 1:00 [...] questions please contact the health client care coordinator that requested your imaging first. [...] have questions please contactthe health client care coordinator that requested your imaging first. Radha Hollins MD IMG DX ORDERABLES * (ABNORMAL) Coox2 (05/12/2023 12:30 AM EDT) pO2, Coox 22 mmHg [facility] Hgb Blood Gas 10.9(L) 11.7 - 15.5 g/dL [facility] Oxyhemoglobin, Coox 25.1 % [facility] Carboxyhemoglo bin, Coox 0.3 % [facility] Comment: Nonsmokers: 0.5-1.5% COHB Smokers: Variable, but usually less than 10% Toxic: 20-30% COHB Lethal: Greater than 60% COHB Methemoglobin, Coox 1.4 <=1.5 % [facility] Source Coox Mixed Venous [facility] Blood 05/12/2023 12:3 0 AM EDT 05/12/2023 12:30 AM EDT Radha Hollins MD POINT [place] [address] * XR Chest One View (05/11/2023 11:45 [...] questions please contact the health client care coordinator that requested your imaging first. [...] have questions please contactthe health client care coordinator that requested your imaging first. Radha Hollins MD IMG DX ORDERABLES * (ABNORMAL) Lactate, whole blood, send to lab ([facility] [place] [place] (05/11/2023 7:40 PM EDT) Pathologist [facility] Lactate WB 4.8(Critic al) 0.5 - 2.2 mmol/L [facility] Comment:Called by: [facility], Read back by: Magdalena Baires, Date/Time:05/11/23 19:54. Blood 05/11/2023 7:40 PM EDT 05/11/2023 7:49 PM EDT Narrative Resulting Agency Comment Spec In Lab Radha Hollins MD CHEMISTRY ORDERABL ES [facility] [place] [address] * Urine culture (05/11/2023 7:22 PM EDT) Pathologist [facility] Urine Culture 50,000-99,000 cfu/ml Normal mucosal herman Susceptibilit y testing not routinely performed for Coagulase Negative Staphylococcu s species and other Gram Positive organisms from urine. [facility] Clean Catch Urine 05/11/2023 7:22 PM EDT 05/11/2023 8:50 PM EDT Narrative Resulting Agency Comment Spec In Lab Brody Kaplan APRN MICROBIOLOGY - GENE RAL ORDERABLES Performing Organization Address [facility] Co de Phone Number [facility] [place] [address] * (ABNORMAL) Urinalysis Microscopic Exam (05/11/2023 7:22 PM EDT) RBC, Urine 2 0 - 4 /HPF [facility] WBC, Urine >100(H) 0 - 5 /HPF [facility] Bacteria, Urine Occasional (A) None /HPF [facility] Squamous Epithelial Cells Raw Data, Urine 5(H) <=4 /HPF [facility] Hyaline Casts, Urine 3(H) 0 - 2 /LPF [facility] Clean Catch Urine 05/11/2023 7:22 PM EDT 05/11/2023 7:31 PM EDT Narrative Resulting Agency Comment Spec In Lab Brody Kaplan CAR KNOCKER URINE ORDERABLES Performing Organization Address [facility] de Phone Number [facility] [place] [address] * (ABNORMAL) Urinalysis with reflex Culture (05/11/2023 7:22 PM EDT) Glucose, Urine Dipstick Negative Negative mg/dL [facility] Protein, Urine Dipstick Trace(A) Negative mg/dL [facility] Bilirubin, Urine Dipstick Negative Negative mg/dL [facility] Comment: Clinical correlation required for positive Urine Bilirubin results as false positive may occur with some drugs and drug related products. If a false positive is suspected a serum total bilirubin should be considered if clinically indicated. Urobilinogen, Urine Dipstick Normal Normal mg/dL [facility] pH, Urn (dipstick) 5.0 5.0 - 8.0 [facility] Blood, Urine Dipstick Trace(A) Negative mg/dL [facility] Ketone, Urine Dipstick Negative Negative mg/dL [facility] Nitrite, Urine Dipstick Negative Negative [facility] Leukocytes, Urine Dipstick Moderate(A) Negative mcL [facility] Appearance, Urine Dipstick Cloudy(A) Clear [facility] Specific Manning Urine Automated >=1.030(A) 1.005 - 1.030 [facility] Color, Urine Dipstick Yellow Yellow [facility] Reflex to Culture Yes [facility] Clean Catch Urine 05/11/2023 7:22 PM EDT 05/11/2023 7:31 PM EDT Narrative Resulting Agency Comment Spec In Lab Brody Kaplan APRN URINE ORDERABLES Performing Organization Address [facility]/ZIP Co de Phone Number [facility] [place] [address] * (ABNORMAL) pro-Brain Natriuretic Peptide (05/11/2023 7:11 PM EDT) NT-proBNP >35,000(H) <=124 pg/mL [facility] Blood 05/11/2023 7:11 PM EDT 05/11/2023 7:26 PM EDT Narrative Resulting Agency Comment Spec In Lab Radha Hollins MD CHEMISTRY ORDERABL ES Performing Organization Address [facility] Co de Phone Number [facility] [place] [address] * (ABNORMAL) Lactate, whole blood, send to lab ([facility] [place] [place] (05/11/2023 2:47 PM EDT) Lactate WB 2.9(H) 0.5 - 2.2 mmol/L [facility] Blood 05/11/2023 2:47 PM EDT 05/11/2023 2:53 PM EDT Narrative Resulting Agency Comment Spec In Lab Juan Luis Gonzalez MD CHEMISTRY ORDERABLES Performing Organization Address [facility]/ZIP Co de Phone Number [facility] [place] [address] * (ABNORMAL) CT Angiogram Abdomen & Pelvis [...] questions please contact the health client care coordinator that requested your imaging first. [...] questions please contact the health client care coordinator that requested your imaging first. ? Electronically signed by: Cullen Narayanan MD, [facility] ([phone]), at 05/11/2023 4:37 PM Narrative 05/11/2023 4:37 [...] 610 mm2 Circumference: 88 mm Calcification: Mild Ntypeyd-sj-yjyqxfxo height: Left: 6.2 mm Right: 5.8 mm THORACIC AORTA Description: Normal course and caliber. ??Mild diffuse atherosclerotic changes. No acute aortopathy noted. Carton Filler dimensions: Aortic root: 27.6 mm Max ascending [...] 610 mm2 Circumference: 88 mm Calcification: Mild Saobmlz-ap-eivuxiqi height: Left: 6.2 mm Right: 5.8 mm THORACIC AORTA Description: Normal course and caliber. Mild diffuse atheroscleroticchanges. No acute aortopathy noted. Carton Filler dimensions: Aortic root: 27.6 mm Max ascending [...] have questions please contactthe health client care coordinator that requested your imaging first. Electronically signed by: Cullen Narayanan MD, [facility]([phone]), at 05/11/2023 4:37 PM Antelmo Sharma MD [facility] [place] ORDERABLES * (ABNORMAL) Lactate, whole blood, send to lab ([facility] [place] [place] (05/11/2023 9:29 AM EDT) Lactate WB 3.1(H) 0.5 - 2.2 mmol/L [facility] Blood 05/11/2023 9:29 AM EDT 05/11/2023 9:38 AM EDT Narrative Resulting Agency Comment Spec In Lab Juan Luis Gonzalez MD CHEMISTRY ORDERABLES Performing Organization Address City/[facility]/ZIP Co de Phone Number [facility] [place] [address] * (ABNORMAL) Differential, Automated (05/11/2023 4:42 AM EDT) Neutrophil % 78.1 % [facility] Neutrophil Absolute 5.46 1.70 - 6.10 x10(3)/mc L [facility] Lymph % 10.6 % [facility] Lymphocytes Abs 0.7(L) 0.9 - 3.2 x10(3)/mc L [facility] Monocyte % 9.6 % [facility] Monocyte Abs 0.7 0.3 - 0.9 x10(3)/mc L [facility] Eos % 0.0 % [facility] Eosinophils Abs 0.0 0.0 - 0.4 x10(3)/mc L [facility] Basophil % 0.4 % [facility] Baso Absolute 0.0 0.0 - 0.1 x10(3)/mc L [facility] Immature Gran % 1.30 % [facility] Comment: Immature granulocytes(IG's)percentage and absolute count will include metamyelocytes, myelocytes, and promyelocytes. Blood smears from CBCs yielding IG's will be scanned manually for concordance. If this scan disagrees with the automated IG or if promyelocytes are noted, a manual differential will be performed. Immature Gran Absolute 0.09(H) 0.00 - 0.04 x10(3)/mc L [facility] Blood 05/11/2023 4:42 AM EDT 05/11/2023 4:49 AM EDT Narrative Resulting Agency Comment Spec In Lab Klaudia Reid MD HEMATOLOGY OR DERABLES [facility] [place] [address] * (ABNORMAL) Hemogram (05/11/2023 4:42 AM EDT) White Blood Cell 7.0 4.0 - 9.5 x10(3)/mc L [facility] Red Blood Cell 3.44(L) 4.00 - 5.21 x10(6)/mc L [facility] Hemoglobin 11.1(L) 11.7 - 15.5 g/dL [facility] Hematocrit 32.7(L) 35.7 - 45.8 % [facility] Mean Cell Volume 95.1(H) 82.6 - 94.4 fL [facility] Mean Cell Hemoglobin 32.3(H) 27.1 - 32.0 pg [facility] Mean Cell Hemoglobin Concentration 33.9 31.7 - 35.0 g/dL [facility] Platelet 165 145 - 357 x10(3)/mc L [facility] RDW Standard Deviation 43.1 37.0 - 46.0 fL [facility] RDW coefficient of variation 12.7 11.5 - 14.1 % [facility] Mean Platelet Volume 10.1 7.6 - 12.9 fL [facility] NRBC% auto 0.0 % [facility] NRBC Absolute 0.000 0.000 - 0.000 x10(3)/ L [facility] Blood 05/11/2023 4:42 AM EDT 05/11/2023 4:49 AM EDT Narrative Resulting Agency Comment Spec In Lab Klaudia Reid MD HEMATOLOGY OR DERABLES [facility] [place] [address] * Heparin (unfractionated) Level (05/11/2023 4:42 AM EDT) UF Heparin 0.46 IU/mL [facility] Comment: Heparin (anti-Xa) levels [...] Lab Radha Hollins MD HEMATOLOGY ORDERAB LES [facility] [place] [address] * (ABNORMAL) Comprehensive metabolic panel (non-fasting) (05/11/2023 4:42 AM EDT) Glucose 143 65 - 199 mg/dL [facility] Comment:Diabetes: >=200 mg/d L plus symptoms Blood Urea Nitrogen 42(H) 8 - 18 mg/dL [facility] Creatinine 1.24(H) 0.70 - 1.20 mg/dL [facility] Sodium 134(L) 135 - 145 mmol/L [facility] Potassium 4.6 3.5 - 5.0 mmol/L [facility] Comment: Please note: ??Patients with WBC >100,000 may have falsely elevated Potassium levels. ??For accurate Potassium quantification in these patients send serum separator tube (gold top) for subsequent determinations. ??Contact the Clinical Chemistry Laboratory if there are any questions. Chloride 99 98 - 107 mmol/L [facility] Carbon Dioxide 14(L) 22 - 31 mmol/L [facility] Anion Gap 21(H) 5 - 15 mmol/L [facility] Calcium 9.6 8.5 - 10.5 mg/dL [facility] Protein, Total 7.2 6.1 - 8.0 g/dL [facility] Albumin 3.7 3.2 - 5.2 g/dL [facility] Aspartate Aminotransferase 144(H) 0 - 30 unit/L [facility] Comment:result rechecked-ssc Alanine Aminotransferase 130(H) 0 - 30 unit/L [facility] Comment:result rechecked-ssc Alkaline Phosphatase 72 35 - 105 unit/L [facility] Bilirubin, Total 0.8 0.2 - 1.3 mg/dL [facility] Est Glomerular Filtration Rate 48(L) >=60 mL/min/1. 73 m?? [facility] [...] Lab Radha Hollins MD CHEMISTRY ORDERABL ES [facility] [place] [address] * EKG 12 Lead (05/10/2023 1:16 PM EDT) Ventricular rate 118 BPM MUSE SYSTEM Atrial Rate 118 BPM MUSE SYSTEM P-R Interval 152 ms MUSE SYSTEM QRS Duration 104 ms MUSE SYSTEM Q-T Interval 316 ms MUSE SYSTEM QTC Calculated (Bezet) 442 ms MUSE SYSTEM Calculated P [place] 29 degrees MUSE SYSTEM Calculated R [place] 18 degrees MUSE SYSTEM Calculated T [place] -173 degrees MUSE SYSTEM INTERPRETATION Sinus tachycardia Minimal voltage criteria for LVH, may be normal variant ( [place] product ) Septal infarct , age undetermined ST & T wave abnormality, consider lateral ischemia Abnormal ECG When compared with ECG of 10-MAY-2023 07:59, Fusion complexes are no longer Present Premature ventricular complexes are no longer Present ST no longer depressed in Anterior leads Confirmed by MD Villareal Danette ([id number]) on 05/10/2023 8:47:46 PM MUSE SYSTEM 05/10/2023 1:16 PM EDT 05/10/2023 8:47 PM EDT Juan Luis Gonzalez MD ECG ORDERABLES MUSE SYSTEM * Lactate, whole blood, send to lab ([facility] [place] [place] (05/10/2023 11:52 AM EDT) Lactate WB 1.8 0.5 - 2.2 mmol/L [facility] Blood 05/10/2023 11:5 2 AM EDT 05/10/2023 12:13 PM EDT Narrative Resulting Agency Comment Spec In Lab Juan Luis Gonzalez MD CHEMISTRY ORDERABLES Performing Organization Address City/[facility] Co de Phone Number [facility] [place] [address] * XR Chest One View (05/10/2023 11:16 [...] questions please contact the health client care coordinator that requested your imaging first. [...] have questions please contactthe health client care coordinator that requested your imaging first. Electronically signed by: ALIX RUVALCABA MD, [facility]([phone]), at 05/10/2023 1:25 PM Juan Luis Gonzalez MD IMG DX ORDERABLES * EKG 12 Lead (05/10/2023 7:59 AM EDT) Ventricular rate 115 BPM MUSE SYSTEM Atrial Rate 115 BPM MUSE SYSTEM P-R Interval 142 ms MUSE SYSTEM QRS Duration 102 ms MUSE SYSTEM Q-T Interval 322 ms MUSE SYSTEM QTC Calculated (Bezet) 445 ms MUSE SYSTEM Calculated P [place] 36 degrees MUSE SYSTEM Calculated R [place] 28 degrees MUSE SYSTEM Calculated T [place] -119 degrees MUSE SYSTEM INTERPRETATION Sinus tachycardia with frequent Premature ventricular complexes and Fusion complexes ST & T wave abnormality, consider lateral ischemia Abnormal ECG When compared with ECG of 08-MAY-2023 15:51, No significant change was found I personally reviewed the tracing and edited the fellows interpretation Confirmed by fellow MD Anitha, Carissa ([id number]) on 05/11/2023 6:19:54 AM Confirmed by MD Tram, Chel ([id number]) on 05/11/2023 3:18:56 PM MUSE SYSTEM 05/10/2023 7:59 AM EDT 05/11/2023 3:18 PM EDT Radha Hollins MD ECG ORDERABLES MUSE SYSTEM * (ABNORMAL) Differential, Automated (05/10/2023 2:28 AM EDT) Neutrophil % 77.1 % [facility] Neutrophil Absolute 4.01 1.70 - 6.10 x10(3)/mc L [facility] Lymph % 14.0 % [facility] Lymphocytes Abs 0.7(L) 0.9 - 3.2 x10(3)/mc L [facility] Monocyte % 7.7 % [facility] Monocyte Abs 0.4 0.3 - 0.9 x10(3)/mc L [facility] Eos % 0.4 % [facility] Eosinophils Abs 0.0 0.0 - 0.4 x10(3)/mc L [facility] Basophil % 0.4 % [facility] Baso Absolute 0.0 0.0 - 0.1 x10(3)/mc L [facility] Immature Gran % 0.40 % [facility] Comment: Immature granulocytes(IG's)percentage and absolute count will include metamyelocytes, myelocytes, and promyelocytes. Blood smears from CBCs yielding IG's will be scanned manually for concordance. If this scan disagrees with the automated IG or if promyelocytes are noted, a manual differential will be performed. Immature Gran Absolute 0.02 0.00 - 0.04 x10(3)/mc L [facility] Blood 05/10/2023 2:28 AM EDT 05/10/2023 2:57 AM EDT Narrative Resulting Agency Comment Spec In Lab Klaudia Reid MD HEMATOLOGY OR DERABLES Performing Organization Address City/[facility]/ZIP Co de Phone Number [facility] [place] [address] * (ABNORMAL) Hemogram (05/10/2023 2:28 AM EDT) White Blood Cell 5.2 4.0 - 9.5 x10(3)/mc L [facility] Red Blood Cell 3.11(L) 4.00 - 5.21 x10(6)/mc L [facility] Hemoglobin 10.2(L) 11.7 - 15.5 g/dL [facility] Hematocrit 30.2(L) 35.7 - 45.8 % [facility] Mean Cell Volume 97.1(H) 82.6 - 94.4 fL [facility] Mean Cell Hemoglobin 32.8(H) 27.1 - 32.0 pg [facility] Mean Cell Hemoglobin Concentration 33.8 31.7 - 35.0 g/dL [facility] Platelet 151 145 - 357 x10(3)/mc L [facility] RDW Standard Deviation 44.9 37.0 - 46.0 fL [facility] RDW coefficient of variation 12.8 11.5 - 14.1 % [facility] Mean Platelet Volume 9.8 7.6 - 12.9 fL [facility] NRBC% auto 0.0 % [facility] NRBC Absolute 0.000 0.000 - 0.000 x10(3)/mc L [facility] Blood 05/10/2023 2:28 AM EDT 05/10/2023 2:57 AM EDT Narrative Resulting Agency Comment Spec In Lab Klaudia Reid MD HEMATOLOGY OR DERABLES Performing Organization Address City/[facility] Co de Phone Number [facility] [place] [address] * (ABNORMAL) Comprehensive metabolic panel (non-fasting) (05/10/2023 2:28 AM EDT) Glucose 100 65 - 199 mg/dL [facility] Comment:Diabetes: >=200 mg/d L plus symptoms Blood Urea Nitrogen 30(H) 8 - 18 mg/dL [facility] Creatinine 0.90 0.70 - 1.20 mg/dL [facility] Sodium 134(L) 135 - 145 mmol/L [facility] Potassium 4.1 3.5 - 5.0 mmol/L [facility] Comment: Please note: ??Patients with WBC >100,000 may have falsely elevated Potassium levels. ??For accurate Potassium quantification in these patients send serum separator tube (gold top) for subsequent determinations. ??Contact the Clinical Chemistry Laboratory if there are any questions. Chloride 102 98 - 107 mmol/L [facility] Carbon Dioxide 20(L) 22 - 31 mmol/L [facility] Anion Gap 12 5 - 15 mmol/L [facility] Calcium 9.3 8.5 - 10.5 mg/dL [facility] Protein, Total 6.4 6.1 - 8.0 g/dL [facility] Albumin 3.7 3.2 - 5.2 g/dL [facility] Aspartate Aminotransferase 24 0 - 30 unit/L [facility] Alanine Aminotransferase 14 0 - 30 unit/L [facility] Alkaline Phosphatase 70 35 - 105 unit/L [facility] Bilirubin, Total 0.5 0.2 - 1.3 mg/dL [facility] Est Glomerular Filtration Rate 70 >=60 mL/min/1. 73 m?? [facility] [...] MD CHEMISTRY ORDERABL ES Performing Organization Address [facility] [place] [address] * Heparin (unfractionated) Level (05/10/2023 2:28 AM EDT) Pathologist [facility] UF Heparin 0.37 IU/mL [facility] Comment: Heparin (anti-Xa) levels should [...] MD HEMATOLOGY ORDERAB LES Performing Organization Address [facility] [place] [address] * (ABNORMAL) Differential, Automated (05/09/2023 4:00 AM EDT) Neutrophil % 81.7 % [facility] Neutrophil Absolute 5.26 1.70 - 6.10 x10(3)/mc L [facility] Lymph % 10.7 % [facility] Lymphocytes Abs 0.7(L) 0.9 - 3.2 x10(3)/mc L [facility] Monocyte % 6.5 % [facility] Monocyte Abs 0.4 0.3 - 0.9 x10(3)/mc L [facility] Eos % 0.5 % [facility] Eosinophils Abs 0.0 0.0 - 0.4 x10(3)/mc L [facility] Basophil % 0.3 % [facility] Baso Absolute 0.0 0.0 - 0.1 x10(3)/mc L [facility] Immature Gran % 0.30 % [facility] Comment: Immature granulocytes(IG's)percentage and absolute count will include metamyelocytes, myelocytes, and promyelocytes. Blood smears from CBCs yielding IG's will be scanned manually for concordance. If this scan disagrees with the automated IG or if promyelocytes are noted, a manual differential will be performed. Immature Gran Absolute 0.02 0.00 - 0.04 x10(3)/ L [facility] Blood 05/09/2023 4:00 AM EDT 05/09/2023 4:19 AM EDT Narrative Resulting Agency Comment Spec In Lab Klaudia Reid MD HEMATOLOGY OR DERABLES Performing Organization Address City/State/[facility] Co de Phone Number [facility] [place] [address] * (ABNORMAL) Hemogram (05/09/2023 4:00 AM EDT) White Blood Cell 6.4 4.0 - 9.5 x10(3)/ L [facility] Red Blood Cell 3.15(L) 4.00 - 5.21 x10(6)/mc L [facility] Hemoglobin 10.2(L) 11.7 - 15.5 g/dL [facility] Hematocrit 30.3(L) 35.7 - 45.8 % [facility] Mean Cell Volume 96.2(H) 82.6 - 94.4 fL [facility] Mean Cell Hemoglobin 32.4(H) 27.1 - 32.0 pg [facility] Mean Cell Hemoglobin Concentration 33.7 31.7 - 35.0 g/dL [facility] Platelet 151 145 - 357 x10(3)/ L [facility] RDW Standard Deviation 44.7 37.0 - 46.0 fL [facility] RDW coefficient of variation 12.8 11.5 - 14.1 % [facility] Mean Platelet Volume 9.4 7.6 - 12.9 fL [facility] NRBC% auto 0.0 % [facility] NRBC Absolute 0.000 0.000 - 0.000 x10(3)/mc L [facility] Blood 05/09/2023 4:00 AM EDT 05/09/2023 4:19 AM EDT Narrative Resulting Agency Comment Spec In Lab Klaudia Reid MD HEMATOLOGY OR DERABLES Performing Organization Address [facility] Co de Phone Number [facility] [place] [address] * Heparin (unfractionated) Level (05/09/2023 4:00 AM EDT) UF Heparin 0.47 IU/mL [facility] Comment: Heparin (anti-Xa) levels should [...] MD HEMATOLOGY ORDERAB LES Performing Organization Address [facility] Co de Phone Number [facility] [place] [address] * (ABNORMAL) Comprehensive metabolic panel (non-fasting) (05/09/2023 4:00 AM EDT) Glucose 108 65 - 199 mg/dL [facility] Comment:Diabetes: >=200 mg/d L plus symptoms Blood Urea Nitrogen 31(H) 8 - 18 mg/dL [facility] Creatinine 1.03 0.70 - 1.20 mg/dL [facility] Sodium 137 135 - 145 mmol/L [facility] Potassium 4.4 3.5 - 5.0 mmol/L [facility] Comment: Please note: ??Patients with WBC >100,000 may have falsely elevated Potassium levels. ??For accurate Potassium quantification in these patients send serum separator tube (gold top) for subsequent determinations. ??Contact the Clinical Chemistry Laboratory if there are any questions. Chloride 102 98 - 107 mmol/L [facility] Carbon Dioxide 20(L) 22 - 31 mmol/L [facility] Anion Gap 15 5 - 15 mmol/L [facility] Calcium 9.3 8.5 - 10.5 mg/dL [facility] Protein, Total 6.6 6.1 - 8.0 g/dL [facility] Albumin 3.8 3.2 - 5.2 g/dL [facility] Aspartate Aminotransferase 32(H) 0 - 30 unit/L [facility] Alanine Aminotransferase 18 0 - 30 unit/L [facility] Alkaline Phosphatase 78 35 - 105 unit/L [facility] Bilirubin, Total 0.5 0.2 - 1.3 mg/dL [facility] Est Glomerular Filtration Rate 60 >=60 mL/min/1. 73 m?? [facility] [...] Lab Radha Hollins MD CHEMISTRY ORDERABL ES [facility] [place] [address] * (ABNORMAL) pro-Brain Natriuretic Peptide (05/08/2023 4:00 PM EDT) NT-proBNP 25,503(H) <=124 pg/mL [facility] Blood Venous Draw / Unknown 05/08/2023 4:00 PM EDT 05/08/2023 4:25 PM EDT Narrative Resulting Agency Comment Spec In Lab Juan Luis Gonzalez MD CHEMISTRY ORDERABLES [facility] [place] [address] * Magnesium (05/08/2023 4:00 PM EDT) Pathologist [facility] Magnesium 0.82 0.69 - 1.07 mmol/L [facility] Blood 05/08/2023 4:00 PM EDT 05/08/2023 4:06 PM EDT Narrative Resulting Agency Comment Spec In Lab Enrique Chua MD CHEMISTRY ORDERABLES Performing Organization Address [facility]/ZIP Co de Phone Number [facility] [place] [address] * Potassium (05/08/2023 4:00 PM EDT) Pathologist [facility] Potassium 3.9 3.5 - 5.0 mmol/L [facility] Comment: Please note: ??Patients with [...] CHEMISTRY ORDERABL ES Performing Organization Address City/[facility]/ZIP Co de Phone Number [facility] [place] [address] * Heparin (unfractionated) Level (05/08/2023 4:00 PM EDT) UF Heparin 0.43 IU/mL [facility] Comment: Heparin (anti-Xa) levels [...] MD HEMATOLOGY ORDERAB LES Performing Organization Address City/State/[facility] Co de Phone Number [facility] [place] [address] * EKG 12 Lead (05/08/2023 3:51 PM EDT) Ventricular rate 98 BPM MUSE SYSTEM Atrial Rate 98 BPM MUSE SYSTEM P-R Interval 150 ms MUSE SYSTEM QRS Duration 102 ms MUSE SYSTEM Q-T Interval 358 ms MUSE SYSTEM QTC Calculated (Bezet) 457 ms MUSE SYSTEM Calculated P [place] 38 degrees MUSE SYSTEM Calculated R [place] 48 degrees MUSE SYSTEM Calculated T [place] -112 degrees MUSE SYSTEM INTERPRETATION Sinus rhythm with frequent and consecutive Premature ventricular and fusion complexes Septal infarct , age undetermined ST & T wave abnormality, consider anterolateral ischemia Abnormal ECG When compared with ECG of 09-NOV-2022 11:17, T wave inversion now evident in Anterolateral leads Confirmed by MD Harshil, Enrique Bell ([id number]) on 05/10/2023 8:11:46 AM MUSE SYSTEM 05/08/2023 3:51 PM EDT 05/10/2023 8:11 AM EDT Radha Hollins MD ECG ORDERABLES MUSE SYSTEM * (ABNORMAL) Differential, Automated (05/08/2023 11:38 AM EDT) Neutrophil % 71.3 % [facility] Neutrophil Absolute 2.91 1.70 - 6.10 x10(3)/mc L [facility] Lymph % 19.1 % [facility] Lymphocytes Abs 0.8(L) 0.9 - 3.2 x10(3)/mc L [facility] Monocyte % 9.0 % [facility] Monocyte Abs 0.4 0.3 - 0.9 x10(3)/mc L [facility] Eos % 0.2 % [facility] Eosinophils Abs 0.0 0.0 - 0.4 x10(3)/mc L [facility] Basophil % 0.2 % [facility] Baso Absolute 0.0 0.0 - 0.1 x10(3)/mc L [facility] Immature Gran % 0.20 % [facility] Comment: Immature granulocytes(IG's)percentage and absolute count will include metamyelocytes, myelocytes, and promyelocytes. Blood smears from CBCs yielding IG's will be scanned manually for concordance. If this scan disagrees with the automated IG or if promyelocytes are noted, a manual differential will be performed. Immature Gran Absolute 0.01 0.00 - 0.04 x10(3)/mc L [facility] Blood 05/08/2023 11:3 8 AM EDT 05/08/2023 11:44 AM EDT Narrative Resulting Agency Comment Spec In Lab Lincoln Sal MD HEMATOLOGY ORDERA BLES [facility] [place] [address] * (ABNORMAL) Hemogram (05/08/2023 11:38 AM EDT) White Blood Cell 4.1 4.0 - 9.5 x10(3)/mc L [facility] Red Blood Cell 3.05(L) 4.00 - 5.21 x10(6)/mc L [facility] Hemoglobin 10.2(L) 11.7 - 15.5 g/dL [facility] Hematocrit 29.6(L) 35.7 - 45.8 % [facility] Mean Cell Volume 97.0(H) 82.6 - 94.4 fL [facility] Mean Cell Hemoglobin 33.4(H) 27.1 - 32.0 pg [facility] Mean Cell Hemoglobin Concentration 34.5 31.7 - 35.0 g/dL [facility] Platelet 136(L) 145 - 357 x10(3)/mc L [facility] RDW Standard Deviation 44.3 37.0 - 46.0 fL [facility] RDW coefficient of variation 12.6 11.5 - 14.1 % [facility] Mean Platelet Volume 9.4 7.6 - 12.9 fL [facility] NRBC% auto 0.0 % [facility] NRBC Absolute 0.000 0.000 - 0.000 x10(3)/[facility] Blood 05/08/2023 11:3 8 AM EDT 05/08/2023 11:44 AM EDT Narrative Resulting Agency Comment Spec In Lab Lincoln Sal MD HEMATOLOGY ORDERA BLES Performing Organization Address City/[facility] Co de Phone Number [facility] [place] [address] * TSH (05/08/2023 11:38 AM EDT) Thyroid Stimulating Hormone 1.27 0.27 - 4.20 mcIU/mL [facility] Comment: Reference Interval (mcIU/mL): Females: ??First Trimester: 0.23-3.88 ??Second Trimester: 0.22-3.90 ??Third Trimester: 0.44-4.66 Blood 05/08/2023 11:3 8 AM EDT 05/08/2023 11:44 AM EDT Narrative Resulting Agency Comment Spec In Lab Enrique Chua MD CHEMISTRY ORDERABLES [facility] [place] [address] * (ABNORMAL) Phosphorus (05/08/2023 11:38 AM EDT) Phosphorus 4.7(H) 2.5 - 4.5 mg/dL [facility] Blood 05/08/2023 11:3 8 AM EDT 05/08/2023 11:44 AM EDT Narrative Resulting Agency Comment Spec In Lab Enrique Chua MD CHEMISTRY ORDERABLES Performing Organization Address City/[facility] Co de Phone Number [facility] [place] [address] * Magnesium (05/08/2023 11:38 AM EDT) Magnesium 0.76 0.69 - 1.07 mmol/L [facility] Blood 05/08/2023 11:3 8 AM EDT 05/08/2023 11:44 AM EDT Narrative Resulting Agency Comment Spec In Lab Enrique Chua MD CHEMISTRY ORDERABLES Performing Organization Address City/[facility] Co de Phone Number [facility] [place] [address] * (ABNORMAL) Basic Metabolic Panel (non-fasting) (05/08/2023 11:38 AM EDT) Glucose 97 65 - 199 mg/dL [facility] Comment:Diabetes: >=200 mg/d L plus symptoms Blood Urea Nitrogen 27(H) 8 - 18 mg/dL [facility] Creatinine 1.02 0.70 - 1.20 mg/dL [facility] Sodium 139 135 - 145 mmol/L [facility] Potassium 4.2 3.5 - 5.0 mmol/L [facility] Comment: Please note: ??Patients with WBC >100,000 may have falsely elevated Potassium levels. ??For accurate Potassium quantification in these patients send serum separator tube (gold top) for subsequent determinations. ??Contact the Clinical Chemistry Laboratory if there are any questions. Chloride 105 98 - 107 mmol/L [facility] Carbon Dioxide 20(L) 22 - 31 mmol/L [facility] Anion Gap 14 5 - 15 mmol/L [facility] Calcium 9.4 8.5 - 10.5 mg/dL [facility] Est Glomerular Filtration Rate 60 >=60 mL/min/1. 73 m?? [facility] [...] In Lab Enrique Chua MD CHEMISTRY ORDERABLES [facility] [place] [address] * ECHO COMPLETE (05/08/2023 11:02 AM EDT) EF 25 HEARTLAB SYSTEM Anatomical Region Laterality Modality Cardiac Other 05/08/2023 10:0 3 AM EDT Narrative 05/08/2023 11:51 AM EDT ? Echocardiogram Report Name: PURNIMA THACKER ?Study Date: 05/08/2023 10:03 AMBP: 92/64 mmHg ? Patient Location: [facility]^CV29^A : 1955 ? Height: 155 cm ? Account: [id number] Age: 67 yrs ? Weight: 78 kg Gender: Female ?BSA: 1.8 m2 Ordering Physician: ENRIQUE CHUA Referring Physician: MARIO ALBERTO CHIN Performed By: CHUCKIE Canchola Reason For Study: SAVR Stenosis Exam Location: [facility]. Interpretation Summary -Left ventricle is [...] worsening stenosis. Mitral regurgitation is similar. Procedure Complete-[id number]. Satisfactory quality. There is normal sinus rhythm. [...] Study Date: 0:03 AMBP: 92/64 mmHg Patient Location:[facility]^CV29^A : 1955 Height: 155 cm Account: [id number] Age: 67 yrs Weight: 78 kg Gender: Female BSA: 1.8 m2 Ordering Physician: ENRIQUE CHUA Referring Physician: MARIO ALBERTO CHIN Performed By: CHUCKIE Canchloa Reason For Study: SAVR Stenosis Exam Location: [facility]. Interpretation Summary -Left ventricle is [...] suggestsworsening stenosis. Mitral regurgitation is similar. Procedure Complete-[id number]. Satisfactory quality. There is normal sinus rhythm. [...] 9:45 AM EDT) UF Heparin 0.54 IU/mL [facility] Comment: Heparin (anti-Xa) levels [...] Lab Enrique Chua MD HEMATOLOGY ORDERABLE S [facility] [place] [address] documented in this encounter Visit Diagnoses Diagnosis [...] dose on Wed05/12/23 at 1030, Until Discontinued, [place] teeth, Routine Given 05/12/2023 10:04 AM EDT [...] CONTINUOUS, Starting on Wed05/12/23 at 0200, Until [place] 05/16/23 at 1026, All adjustments must be [...] at 0831, Side port TKO rate, per [facility] flush protocol. Rate/Dose Verify 05/17/2023 8:00 [...] Favian Mckeon RN) [id number] (Given - Provider: Kai Gallego, VALDO)2012 (Given - Provider: Favian Mckeon [...] post-op day 1 in the AM Give [place] if unable to take PO, Routine Group [...] Routine documented in this encounter Care Teams Tip Puncher Relationship Specialty Start Date End Date Magdalena Acosta MD [address] [place] [address] PCP - General Family Medicine 02/05/23 documented as of this encounter
--- OUTSIDE RECORDS SUMMARY | 2024-03-30 14:29 | XMS_ITS | Encounter Summary ---
[facility] Organization [facility] [place] [address] Care Team Providers Care Traffic Circuit Engineer Name Role Phone Magdalena Acosta MD Primary Care Provider [phone] Reason for Visit * Auth/Cert (Routine) Specialty Diagnoses / Procedures Referred By Contac t Referred To Contact Diagnoses Symptomatic severe aortic stenosis with low ejection fraction NSTEMI, CHF Enrique Chua MD [facility] [place] [address] [facility] Referral ID Status Reason Start Date Expiration Date Visits Re quested Visits Authorized [id number] 1 1 Encounter Details Date Type Department Care Team (Late st Contact Info) Description 05/12/2023 2:50 PM EDT - 05/12/2023 3:50 PM EDT Surgery Environmental [place] [address] Antelmo Sharma MD [facility] [place] [address] CARDIAC CATHETERIZATION Social History Tobacco Use Types [...] Patient Age: 67 y.o. Birthdate: 1955 Language: Moroccan Race: White Ethnicity: Not nor Admit Date: 05/08/2023 Discharge Date: 05/22/2023 Attending Physician: Alirio Hudson MD Follow-up Recommendations for Providers: Please continue routine management of cardiovascular risk factors including blood pressure, lipids,glucose, etc. Please note any medication changes. Patient to follow up with PCP, Magdalena Acosta MD, or Primary Stone Carver, Avis Mejia MD, in ~ 7-10 days. Patient to follow up with Librarian Helper, Dr. Antelmo Sharma, in 2 weeks with an EKG, Echo, CBC, and CMP. Patient to follow up with Nephrology, their office to arrange. Tvmz-Pzhfxd-cl interval: After initial 30 day follow-up appointment , all TAVR patients will follow-up again in one year with an echo. 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 Secondary Diagnoses: Active Hospital Problems Diagnosis S/P TAVR (transcatheter aortic valve replacement) Cardiogenic shock Symptomatic severe aortic stenosis with low ejection fraction Mild coronary artery disease by [facility] 11/09/2022 Heart failure with reduced ejection fraction [...] Tube Placement Right 05/18/2023 Laure Ricks PA [facility] INTERVENTIONL RAD PRG CATH PLMT LEFT HEART CATH & ARTS W/INJ & ANGIO IMG S&I N/A 11/09/2022 CORONARY ANGIOGRAPHY; W [facility],POSSIBLE PCI (WRVU 5.6) performed by Mario Alberto Escobedo MD at [facility] CATH LABS PRG COMBINED RIGHT & LEFT HEART CATH W/INJ L VENTRICULOGRAPHY, IMG S&I N/A 05/12/2023 COMBINED RIGHT & LEFT HEART CATH,INC INJ FOR L VENTRICULOGRAPHY (WRVU 5.99) performed by Antelmo Sharma MD at [facility] CATH LABS PRO AORTOPLAS FOR SUPRAVALV STEN N/A 09/21/2016 @AORTOPLASTY FOR SUPRAVALVULAR STENOSIS (WRVU 29.33) performed by Alirio Hudson MD at [facility] MAIN OR PRO REPLACE AORTIC VALVE (TAVR/FEDERICO)PERC FEMORAL ARTERY APPROACH 05/12/2023 @TRANSCATHETER AORTIC VALVE REPLACEMENT (TAVR), PERCUTANEOUS FEMORAL (WRVU 22.47) performed by Alirio Hudson MD at [facility] CATH LABS PRO REPLACEMENT PROSTHETIC AORTIC VALVE OPEN W CARDIOPULMONARY BYPASS HOMOGRF/STENT N/A 09/21/2016 @REPLACE AORTIC VALVE, OPEN, W\CPB, W\PROSTHETIC VALVE (WRVU 41.32) performed by Alirio Hudson MD at [facility] MAIN OR Prior To Admission Medications [...] Major Procedures/Operations: 05/12/23: Successful right transfemoral TAVR Khqvt-im-Uiryb with a 23 mm Lai 3 THV. Left coronary protection with left main MINNA. 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 Alirio [...] if you have questions. Please call your Librarian Helper's office if you have any discharge or drainage from your procedural sites. Your Librarian Helper, Dr. Antelmo Sharma and/or the Ring Spinner may be reached at . Antibiotic prophylaxis: You will need to take antibiotics prior to many invasive tests and treatments, such as dental cleaning, which should be done every 6 months. Your primary care physician or your dentist can prescribe this medication. Please refer to the card with the Dutch Heart Association Guidelines for more information. You have been provided with a copy of this card. Please refer to the Dutch Heart Association Guidelines for more information. Good [...] should resume a low fat, low cholesterol, Dutch Heart Association Diet Driving: No restrictions. Shower/Bath: You may shower daily. No baths, soaking, or swimming for the first week. Wound care: Wash the sites daily with soap and rinse well, pat dry. Assess for any signs of infection such as increased redness, pain, warmth or drainage. Please call your railroad surveyor's office if you have any discharge or drainage from your procedural sites. If there is a lot of swelling, apply mamta wraps during the day and remove at bedtime. Elevate your legs when you are sitting. Home oxygen therapy: N/A Follow up appointments: Please schedule a follow-up appointment with your PCP, Magdalena Acosta MD, or Primary Stone Carver in ~ 7-10 days. You have a follow-up appointment with your Librarian Helper, Dr. Antelmo Sharma, in 2 weeks with an EKG, Echo, and labs prior to your appointment. You will need follow-up with Nephrology, their office will arrange. Nbrc-Qjnkgy-qk interval: After initial 30 day follow-up appointment , all TAVR patients will follow-up again in one year with an echo. Cardiac Rehabilitation: Purnima Thacker was seen today regarding participation in the outpatient Phase 2 Cardiac Rehabilitation at [facility]. The patient agrees to a referral to this program. The referral will be sent at discharge and the patient should be contacted by the Program within 1- 2 weeks from discharge. Future Appointments and Orders Future Appointments and Orders Future Appointments Provider Department Dept Phone 07/29/2023 11:00 AM Magdalena Peralta MD [place] [facility] [place] [facility] [address] [phone] 02/11/2024 2:00 PM Marek Bonilla MD Dermatology at [place] Arrive at: [facility] [address] [phone] Future Orders Complete By Expires Type and Screen Future Surgery, [facility] [place] ONLY) [EZG8605 Custom] 05/11/2023 Process Instructions: This test is intended ONLY for patients with upcoming surgery for testing prior to the day of surgery obtained through the same day program (4V or SDP). For ALL OTHER PATIENTS, order a Type and Screen (HOL036) This order includes the physician order for an ABO Recheck if requested by the Blood Bank. Scheduling Instructions: Comments: Questions: Date of surgery: CBC (with Diff) [YTD306 Custom] 06/05/2023 12/05/2023 Process Instructions: INCLUDES: WBC, RBC, Hgb, Hct, Platelets, RBC Indices and Differential Scheduling Instructions: Comments: Questions: Comprehensive metabolic panel (non-fasting) [LAB17 Custom] 06/05/2023 08/20/2023 Process Instructions: INCLUDES: Calcium, T Protein, Albumin, AST, ALT, Alk Phos, T Bili, BUN, Creat, GFR, Glucose, Lytes. Scheduling Instructions: Comments: Questions: Echocardiogram Transthoracic [57245 CPT(R)] 06/05/2023 12/05/2023 Process Instructions: Scheduling Instructions: Questions: Where will study be performed?: [facility] Does the patient have Congenital Heart Disease?: Does patient require sedation?: GA rationale: EKG 12 Lead [55912 CPT(R)] 06/05/2023 12/05/2023 Process Instructions: Scheduling Instructions: Questions: Which location will this be performed?: [place] Is a rhythm strip needed?: No [facility] [employer] [EQ161 Custom] As directed Process Instructions: Scheduling Instructions: Questions: Device Needed: WALKER (E0143) Patient Height (cm): 154.9 cm (5' 0.98) Patient Weight: 75.4 kg (166 lb 3.2 oz) Diagnosis: Unsteady gait when walking Referral to Cardiac Rehab [TAI151 Custom] As directed Process Instructions: If no progress note charted, please enter Clinical details in comments. Scheduling Instructions: Questions: My question or request is: s/p TAVR. Cardiac rehab at [facility]. Referral to Home Health [REF34 Custom] As directed Process Instructions: If no progress note charted, please enter Clinical details in comments. Scheduling Instructions: Comments: DOCUMENTATION FOR VNA SERVICES PATIENT'S LOCATION: Purnima Thacker [address] [place] [phone] (home) Tinsmith Helper's Name: Irineo and brother Raymond In discussion with the attending physician, it is certified that this patient is under his/her careand that MD, or an CHAIN DYER, DIE MAKER ELECTRONIC, or PA who is working directly with him/her, had a avok-yo-iuai encounter that meets the physician ggeo-sz-jrfw encounter requirements with this patient on 05/22/2023. [...] for managing ADLs. HOME HEALTH CARE AGENCY: [facility]. [address] [facility] [address] PHONE: [phone] FAX: [phone] Start of care: Ideally 24-48 hours after [...] Magdalena Acosta MD [address] / [facility] [phone] All VNA agencies which cover the area of patient's residence have been reviewed, either verbally joao writing, and patient has chosen the home health care agency noted. Questions: Disciplines Requested: Physical Therapy Occupational Therapy Discharge References/Attachments None Arrangements for VNA/home care: As above. (delete if no VNA) Signed: EKATERINA NAVARRETE [facility] Section of Cardiac Surgery Date: 05/22/2023 CC: Magdalena Acosta MD [place] [facility] Alberto maxwell MD [address] [place] [address] documented in this encounter Discharge Instructions * Patient Instructions* Vinod Juárez PA - 05/22/2023 9:32 AM EDT TAVR Discharge Instructions: Call your doctor if: You have a fever of greater than 101 degrees, shaking chills, if you develop redness or drainage from your procedure sites, or if you have questions. Please call your Librarian Helper's office if you have any discharge or drainage from your procedural sites. Your Librarian Helper, Dr. Antelmo Sharma and/or the Ring Spinner may be reached at . Antibiotic prophylaxis: You will need to take antibiotics prior to many invasive tests and treatments, such as dental cleaning, which should be done every 6 months. Your primary care physician or your dentist can prescribe this medication. Please refer to the card with the Dutch Heart Association Guidelines for more information. You have been provided with a copy of this card. Please refer to the Dutch Heart Association Guidelines for more information. Good [...] should resume a low fat, low cholesterol, Dutch Heart Association Diet Driving: No restrictions. Shower/Bath: You may shower daily. No baths, soaking, or swimming for the first week. Wound care: Wash the sites daily with soap and rinse well, pat dry. Assess for any signs of infection such as increased redness, pain, warmth or drainage. Please call your railroad surveyor's office if you have any discharge or drainage from your procedural sites. If there is a lot of swelling, apply mamta wraps during the day and remove at bedtime. Elevate your legs when you are sitting. Home oxygen therapy: N/A Follow up appointments: Please schedule a follow-up appointment with your PCP, Magdalena Acosta MD, or Primary Stone Carver in ~ 7-10 days. You have a follow-up appointment with your Librarian Helper, Dr. Antelmo Sharma, in 2 weeks with an EKG, Echo, and labs prior to your appointment. You will need follow-up with Nephrology, their office will arrange. Yrfh-Dypkds-mm interval: After initial 30 day follow-up appointment , all TAVR patients will follow-up again in one year with an echo. Cardiac Rehabilitation: Purnima Gallegol was seen today regarding participation in the outpatient Phase 2 Cardiac Rehabilitation at [facility]. The patient agrees to a referral [...] ins ( tef) Haven Ba, PT Pager: [phone] Physical Therapy Inpatient Rehabilitation Department * Nico [...] 0600 and on the weekends please page [phone]. * Jory Paniagua - 05/20/2023 3:52 PM [...] vomiting Last Bowel Movement: 05/20/23 Jory Paniagua Carding Doubler * Tong Mike, OT - 05/20/2023 3:16 [...] Tube Placement Right 05/18/2023 Laure Ricks PA [facility] INTERVENTIONL RAD PRG CATH PLMT LEFT HEART CATH & ARTS W/INJ & ANGIO IMG S&I N/A 11/09/2022 CORONARY ANGIOGRAPHY; W [facility],POSSIBLE PCI (WRVU 5.6) performed by Mario Alberto Escobedo MD at [facility] CATH LABS PRG COMBINED RIGHT & LEFT HEART CATH W/INJ L VENTRICULOGRAPHY, IMG S&I N/A 05/12/2023 COMBINED RIGHT & LEFT HEART CATH,INC INJ FOR L VENTRICULOGRAPHY (WRVU 5.99) performed by Antelmo Sharma MD at [facility] CATH LABS PRO AORTOPLAS FOR SUPRAVALV STEN N/A 09/21/2016 @AORTOPLASTY FOR SUPRAVALVULAR STENOSIS (WRVU 29.33) performed by Alirio Hudson MD at [facility] MAIN OR PRO REPLACE AORTIC VALVE (TAVR/FEDERICO)PERC FEMORAL ARTERY APPROACH 05/12/2023 @TRANSCATHETER AORTIC VALVE REPLACEMENT (TAVR), PERCUTANEOUS FEMORAL (WRVU 22.47) performed by Alirio Hudson MD at [facility] CATH LABS PRO REPLACEMENT PROSTHETIC AORTIC VALVE OPEN W CARDIOPULMONARY BYPASS HOMOGRF/STENT N/A 09/21/2016 @REPLACE AORTIC VALVE, OPEN, W\CPB, W\PROSTHETIC VALVE (WRVU 41.32) performed by Alirio Hudson MD at [facility] MAIN OR Social History: Patient lives alone. Home Setup: Pt lives on one level with tub shower and three steps to enter. DME: none used ELECTORAL OFFICER Baseline ADL/Mobility: Independent with ADLs and [...] WFL Vision & Perception: corrective lenses multimedia editor Communication: WFL Range of motion, strength, coordination: [...] Discharge planning. Total Minutes, Occupational Therapy: 28 ([id number]) OT Evaluation Code Rationale: Diagnosis & Pertinent Co-Morbidities affecting Plan of Care: see PMHx Occupational Profile & Client History: Brief Expanded Extensive x Assessment of Occupational Performance: 1-3 performance deficits 3-5 performance deficits x 5 + performance deficits Clinical Decision Making: Low Moderate High x Clinical decision making of moderate complexity using standardized patient assessment instrument and measurable assessment of functional outcome. Pager: [phone] TONG MIKE OT 05/20/2023 Occupational Therapy Rehabilitation [...] 0600 and on the weekends please page [phone]. * Rylie Rodriguez MD - 05/19/2023 3:59 [...] and plan. Cynthia Blackburn MD Nephrology Pager: [phone] * Diana Espino - 05/19/2023 1:49 PM EDT In Store Banker Encounter Note Patient Name: Purnima Thacker : [id number] MR#: [id number] Admit Date: 05/08/2023 9:14 AM Hospital Day [...] as stated. Total Minutes, Physical Therapy: 38 ([phone]) Henrik Navarrete PTA Pager: [phone] Physical Therapy Inpatient Rehabilitation Department * Nico [...] 0600 and on the weekends please page [phone]. * Laure Ricks PA - 05/19/2023 7:56 [...] Ricks PA-C Interventional Radiology IR Team Pager [phone] * Consuelo Espinoza RN - 05/18/2023 4:13 PM EDT ANGIO NURSING DATABASE Name: Purnima Thacker Date of : 1955 AGE: 67 y.o. Address: [address] [place] [address] (home) Mobile: No relevant phone numbers on [...] artery disease by [facility] 11/09/2022 I25.10 Heart failure with reduced ejection [...] and plan. Cynthia Blackburn MD Nephrology Pager: [phone] * Magdalena Puri, MAILING MACHINE ASSISTANT - 05/18/2023 10:51 AM EDT Images from the original note were [place] [address] STRUCTURAL HEART DISEASE CONSULTATION NOTE PRIMARY CARE [...] stenosis. She is now status post TAVR Xtmlr-nh-Novfd with a 23 mm Lai 3 THV 05/12/[address] Sharma. Preliminary findings: Successful right transfemoral TAVR Fqyho-wk-Bfpbm with a 23 mm Lai 3 THV. [...] [facility] 11/09/2022 Heart failure with reduced ejection fraction [...] tablet 81 mg 81 mg Oral Daily [facility] APRN 81 mg at 05/18/23 0826 ondansetron (pf) (Zofran) (2 mg/mL) injection 4 mg 4 mg Intravenous Q8H PRN [facility] ern[facility] APRN4 mg at 05/12/23 0736 pantoprazole EC (Protonix) tablet 40 mg 40 mg Oral Daily MaggieMara ernandez APRN 40 mg at 05/18/23 0826 Or pantoprazole (Protonix) injection 40 mg 40 mg Intravenous Daily [facility] APRN 40 mg at 05/12/23 1004 senna-docusate (Pericolace) 8.6-50 mg per tablet 2 tablet 2 tablet Oral Daily MaggieMara ernandez APRN 2 tablet at 05/16/232111 bisacodyL (Dulcolax) suppository 10 mg 10 mg Rectal Daily PRN MaggieMara ernandez APRN melatonin tablet 6 mg 6 mg Oral Nightly PRN [facility] APRN 6 mg at 05/17/232024 influenza vaccine adjuvanted (Adult 65 Yrs +) (FluAD Quad) (PF) IM injection 0.5 mL 0.5 mL Intramuscular Prior to discharge [facility] APRN FAMILY HISTORY: No family history [...] stenosis. She is now status post TAVR Fpeok-kh-Ldguj with a 23 mm Lai 3 THV [...] Magdalena Puri APRN Structural Heart Team Pager [phone] Team Office Please see addendum by Dr. Sharma for final plan and recommendations Associated attestation - Antelmo Sharma MD - 05/19/2023 10:52 PM EDT I have reviewed Magdalena Puri APRN's above history and I agree with the details as written. The assessment and plan were formulated in discussion with me and I agree with them as documented. Antelmo Sharma MD Pager [phone] * Nico Palacios PA - 05/18/2023 8:13 [...] 0600 and on the weekends please page [phone]. * Loli Hernandez, PT - 05/17/2023 5:27 [...] plan as stated. Time IN / OUT: 8888-9548 Total Minutes, Physical Therapy: 54 Billing Code: te-sx2, te-f, angely HERNANDEZ PT Pager: [phone] Physical Therapy Inpatient Rehabilitation Department * Cynthia [...] Well controlled. Cynthia Blackburn MD Nephrology Pager: [phone] * Mara Serrano, MAILING MACHINE ASSISTANT - 05/17/2023 8:26 AM EDT Cardiac Surgery [...] 0600 and on the weekends please page [phone]. * Guerda Del Valle C - 05/16/2023 10:44 AM EDT Nutrition Services Note - Low Nutrition Acuity Purnima Thacker is a 67 y.o. female Reason for intervention: hospital day 9 Nutrition Plan: Continue diet order Encourage good PO Lasix and Zofran noted Added special serve: open containers Monitor weight Patient scheduled for a hospital day 9 nutrition evaluation. Cold Meat Cook met with pt at bedside. Pt reports that her appetite and PO has much improved since admission. Denies nausea/vomiting or trouble chewing/swallowing. Cold Meat Cook provided snack list but pt not interested in adding snacks at this time. Her only concern was that she is worried that she will eat too much which will cause too much pressure in her stomach. Cold Meat Cook assured pt and suggested eating smaller but [...] Last Bowel Movement: 05/10/23 Guerda Del Valle Carding Doubler * Vinod Juárez PA - 05/16/2023 10:19 [...] 0600 and on the weekends please page [phone]. * Michael Jeffers MD - 05/16/2023 8:11 AM EDT Images from the original note were not included. Hypertension-Nephrology Inpatient Follow-up Purnima Thacker [id number] 1955 ID: 67 y.o. old female seen [...] IRONSAT 12 (L) 05/16/2023 SFOLATE >20.0 07/03/2022 [id number] 07/03/2022 Lab Results Component Value Date [...] Dr. Ayoub. Please contact me at phone: [phone] or pager: [phone] with any questions. Michael Jeffers MD Nephrology [...] -Nephrology consulted, labs and renal US ordered -[place] removed, ambulated around the unit -bilateral pleural [...] 0600 and on the weekends please page [phone]. * Hortencia Cody MD - 05/15/2023 2:07 [...] not included. Hypertension-Nephrology Inpatient Follow-up Purnima Thacker [id number] 1955 ID: 67 y.o. old female seen [...] HGB 7.8 (L) 05/13/2023 SFOLATE >20.0 07/03/2022 [id number] 07/03/2022 Lab Results Component Value Date [...] Dr. Ayoub. Please contact me at phone: [phone] or pager: [phone] with any questions. Michael Jeffers MD Nephrology [...] last 720 hours. T/L/D Art ETT CVL [place] ASSESSMENT, MANAGEMENT, and DECISION MAKIN y.o. female [...] outlined inthis evaluation. HAVEN BA, PT Pager: [phone] Physical Therapy Inpatient Rehabilitation Department Time IN / OUT: 4170-3624 Total time: Total Minutes, Physical Therapy: 30 [...] 0600 and on the weekends please page [phone]. * Antelmo Sharma MD - 05/14/2023 7:56 AM EDT Images from the original note were not [place] [address] [address] STRUCTURAL HEART DISEASE CONSULTATION NOTE PRIMARY CARE [...] stenosis. She is now status post TAVR Dpxpf-fy-Czjlk with a 23 mm Lai 3 THV 05/12/[address] Sharma. Preliminary findings: Successful right transfemoral TAVR Cydis-lb-Tskoq with a 23 mm Lai 3 THV. [...] perforation. Interval Events: - 05/12 Transferred to [facility] post- TAVR for pressor/inotropic support [...] [facility] Heart failure with reduced ejection fraction [...] stenosis. She is now status post TAVR Rqyos-gn-Vgnuf with a 23 mm Lai 3 THV 05/12/[address] Sharma. Janet TAVR case notable for coronary LAD protective MINNA. Status post TAVR, the patient was transferred to [facility] for pressor and inotropic support. Pressors weaned overnight 05/12. Cardiac indices by thermodilution remained >3 with continued Milrinone 0.125 mcg/kg/min prior to PAC removal. EKG todayNSR with stable OK/QRS intervals. Hemoglobin slowly down-trending (8.2-> 7.8-> 7.2). [...] Brody Kaplan APRN Structural Heart Team Pager [phone] Team Office Please see addendum by Dr. [...] exposure. Nephrology consultationtoday. Antelmo Sharma MD Pager [phone] * Antelmo Cardenas RN - 05/14/2023 5:18 AM EDT Pt AOx4, complaining of mild/moderate generalized pain (states her Meloxicam is effective at home) currently refusing prn oxycodone. NAEON, hemodynamically stable on Milrinone, Maps >65, ST in iww725's down to NSR with frequent multifocal PVC's. [...] from the original note were not [place] [address] [address] STRUCTURAL HEART DISEASE PROGRESS NOTE PRIMARY CARE [...] stenosis. She is now status post TAVR Gxmrd-in-Eamqm with a 23 mm Lai 3 THV 05/12/[address] Sharma. Preliminary findings: Successful right transfemoral TAVR Uzbog-iy-Hownm with a 23 mm Lai 3 THV. [...] [facility] 11/09/2022 Heart failure with reduced ejection fraction [...] stenosis. She is now status post TAVR Bdspw-ve-Oqmwn with a 23 mm Lai 3 THV 05/12/[address] Sharma. Janet TAVR case notable for coronary LAD protective MINNA. Status post TAVR, the patient was transferred to [facility] for pressor and inotropic support. Pressors weaned overnight. Cardiac indices by thermodilution remain greater than 3 with continued Milrinone 0.125 mcg/kg/min. EKG today NSR with stable OK/QRS intervals. Hemoglobin 7.8 today from 8.5, likely [...] Brody Kaplan APRN Structural Heart Team Pager [phone] Team Office Please see addendum by Dr. [...] DAPT moving forward. Antelmo Sharma MD Pager [phone] * Bonita Miguel PA - 05/13/2023 8:30 AM EDT Cardiac Surgery Progress Note Purnima Thacker is a 67 y.o. 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 PMH of s/p tissue AVR (2017), mixed connective tissue disease HTN, HLD, NICOLAS, diverticulosis, rosacea, essential tremor, and depression. 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 Tubes/Lines/Drains: [place], RIJ, A-line, Art, PIV Assessment/Plan: 67 y.o. [...] 0600 and on the weekends please page [phone]. * Onelia Schwartz MD - 05/12/2023 1:44 [...] [facility] 11/09/2022 Heart failure with reduced ejection fraction [...] FiO2 weaned to 40%. 1105: ABG 7.34/42/73/22 8742-3353: SBT performed and passed on these settings [...] PCP: Magdalena Acosta MD PCP phone number: [phone] Date of Admission: 05/08/2023 ( Hospital Day [...] 1447 PHART -- 7.34* 7.34* -- -- HSH5SUD -- 30* 30* -- -- PO2ART -- 72* 81* -- -- QSE1MDP -- 16.0* 15.7* -- -- LACTATEVEN 2.4* 2.7* 2.7* 4.8* 2.9* VBG (Venous Blood Gas) Recent Labs 05/12/23 0700 05/12/238 05/12/2310505/11/23193905/11/23 144 LACTATEVEN 2.4* 2.7* 2.7* 4.8* 2.9* Mixed Venous Sat Recent Labs 05/12/23 0508 05/12/23 0321 05/12/23 0114 05/12/23 0030 [id number] 30.7 32.7 37.3 25.1 Objective: Vitals Last [...] questions please contact the health clinical care coordinator that requested your imaging first. Electronically signed by: ALIX RUVALCABA MD, [facility] ([phone]), at 05/10/2023 1:[address] Cardiac for [...] questions please contact the health clinical care coordinator that requested your imaging first. Electronically signed by: Cullen Narayanan MD, [facility] ([phone]), at 05/11/2023 4:[address] Angiogram Abdomen [...] questions please contact the health clinical care coordinator that requested your imaging first. [...] questions please contact the health clinical care coordinator that requested your imaging first. [...] questions please contact the health clinical care coordinator that requested your imaging first. [...] and inotrope. She is planned for a zpjbn-xy-quesy TAVR this morning, which should hopefully improve [...] MD, FACP, FACC Section of Cardiovascular Medicine [facility] Accounting Professorstripper preliminary [employer] at [facility] * Noreen Deutsch RN - [...] [facility] [place] 11/09/2022 Heart failure with reduced ejection fraction [...] 05/11/2023 4:11 PM EDT Reported off to [facility] and pt transferred over in the bed for higher level of care. * Antelmo Sharma MD - 05/11/2023 9:45 AM EDT Images from the original note were not [place] [address] [address] STRUCTURAL HEART DISEASE CONSULTATION NOTE PRIMARY CARE [...] who had been referred for possible TAVR gjnhk-vh-tgqmt evaluation. Her primary symptoms are of dyspnea [...] [facility]. 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 She states [...] [facility] [place] 11/09/2022 Heart failure with reduced ejection fraction [...] tablet 40 mg 40 mg Oral Daily aHrini Lance MD 40 mg at 05/11/23 0834 [...] hour(s)) Lactate, whole blood, send to lab ([facility]) Result Value Ref Range Lactate WB 3.1 (H) 0.5 - 2.2 mmol/L Heparin (unfractionated) Level Result Value Ref Range Heparin UFH Level 0.46 IU/mL Lactate, whole blood, send to lab ([facility]) Result Value Ref Range Lactate WB 1.8 [...] leads Confirmed by MD Harshil, Enrique Bell ([id number]) on 05/10/2023 8:11:46 AM Cardiac Cath 11/09/2022 [...] alert Dr. Hudson of her inpatient status, [place] primary cardiac surgeon. Based on recent clinic visit, tentative plan had been for TAVR JANET issa ferrera given her chronological age. Cardiac cath 11/09/2022 notable for non-obstructive coronary disease. TAVR CTAs planned for today. Will review her case with cardiac surgery to determine best timing and therapies for her valve intervention. Addendum 05/11/2023 6:48 PM Due to decompensating HFrEF, she was transferred to [facility] this afternoon for further management. TAVR CT imaging support for adequate ileofemoral access. Given her acute deterioration today, will planfor RTF TAVR on 05/12/2023. Brody Kaplan APRN Structural Heart Disease Pager [phone] Please see addendum by Dr. Sharma for [...] signed and dated. Antelmo Sharma MD Pager [phone] * Harini Lance MD - 05/11/2023 6:06 AM EDT Images from the original note were not included. Cardiology Progress Note Patient info: Name: Purnima Thacker : 1955 PCP: Magdalena Acosta MD PCP phone number: [phone] Date of Admission: 05/08/2023 ( Hospital Day [...] questions please contact the health clinical care coordinator that requested your imaging first. 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) Mild coronary artery disease by [facility] 11/09/2022 Hyperlipidemia, unspecified NICOLAS (obstructive sleep apnea) [...] PCP: Magdalena Acosta MD PCP phone number: [phone] Date of Admission: 05/08/2023 ( Hospital Day [...] 05/10/2023, 6:01 AM Associated attestation - Juan Lius Gonzalez MD - 05/10/2023 6:48 PM EDT Cardiology Attending Addendum Active Hospital Problems Diagnosis Symptomatic severe aortic stenosis with low ejection fraction Heart failure with reduced ejection fraction due to heart valve disease 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, 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) Mild coronary artery disease by [facility] 11/09/2022 Hyperlipidemia, unspecified NICOLAS (obstructive sleep apnea) [...] PCP: Magdalena Acosta MD PCP phone number: [phone] Date of Admission: 05/08/2023 ( Hospital Day [...] Gas) No results found for: PHART, PO2ART, DLZ7RFX, DLN7LTM Microbiology: Microbiology Results (Last 30 days) No [...] PPx: Diet: Daily Healthy Menu Choices/Cardiac diet ([facility]) Lines: Peripheral IV Line - Single Lumen [...] artery disease by [facility] 11/09/2022 Hyperlipidemia, unspecified NICOLAS (obstructive sleep apnea) [...] artery disease by [facility] 11/09/2022 I25.10 Heart failure with reduced ejection fraction due to heart valve disease I50.20, I38 Cardiogenic shock R57.0 S/P TAVR (transcatheter aortic valve replacement) Z95.2 Past Medical History: Diagnosis Date Anemia Past Surgical History: Procedure Laterality Date PRG CATH PLNV LEFT HEART CATH & ARTS W/INJ & ANGIO IMG S&I N/A 11/09/2022 CORONARY ANGIOGRAPHY; W [facility],POSSIBLE PCI (WRVU 5.6) performed by Mario Alberto Escobedo MD at [facility] CATH LABS PRO AORTOPLAS FOR SUPRAVALV STEN N/A 09/21/2016 @AORTOPLASTY FOR SUPRAVALVULAR STENOSIS (WRVU 29.33) performed by Alirio Hudson MD at [facility] MAIN OR PRO REPLACEMENT PROSTHETIC AORTIC VALVE OPEN W CARDIOPULMONARY BYPASS HOMOGRF/STENT N/A 09/21/2016 @REPLACE AORTIC VALVE, OPEN, W\CPB, W\PROSTHETIC VALVE (WRVU 41.32) performed by Alirio Hudson MD at [facility] MAIN OR Social History and Habits: [...] artery disease by [facility] 11/09/2022 I25.10 Heart failure with reduced ejection fraction due to heart valve disease I50.20, I38 Cardiogenic shock R57.0 S/P TAVR (transcatheter aortic valve replacement) Z95.2 Past Medical History: Diagnosis Date Anemia Past Surgical History: Procedure Laterality Date PRG CATH PLNV LEFT HEART CATH & ARTS W/INJ & ANGIO IMG S&I N/A 11/09/2022 CORONARY ANGIOGRAPHY; W [facility],POSSIBLE PCI (WRVU 5.6) performed by Mario Alberto Escobedo MD at [facility] CATH LABS PRO AORTOPLAS FOR SUPRAVALV STEN N/A 09/21/2016 @AORTOPLASTY FOR SUPRAVALVULAR STENOSIS (WRVU 29.33) performed by Alirio Hudson MD at [facility] MAIN OR PRO REPLACEMENT PROSTHETIC AORTIC VALVE OPEN W CARDIOPULMONARY BYPASS HOMOGRF/STENT N/A 09/21/2016 @REPLACE AORTIC VALVE, OPEN, W\CPB, W\PROSTHETIC VALVE (WRVU 41.32) performed by Alirio Hudson MD at [facility] MAIN OR Social History and Habits: [...] days, which prompted her to present to [employer]. She also endorses some intermittent retrosternal chest pain with exertion.She endorses some dizziness with exertion, but has not gotten faint or passed out. At [employer] she was noted to be afebrile, blood pressure 105/64, HR 120s, satting 95% on 2L NC. Labs from [employer] are below, of note she had [...] 89/59, which prompted the transfer to us. [facility] labs: CBC - Hgb 10.5 CMP - Cr 1.1 BNP 81542 HsTrop 1358 Lactate 1.6 D-dimer 1183 Interval History Patient was admitted to [facility] due to concern on low [...] Klaudia Reid MD Internal Medicine PGY-1 Pager [phone], M1-S1 Service Associated attestation - Juan Luis Gonzalez MD - 05/08/2023 10:00 PM EDT Cardiology Attending Addendum Active Hospital Problems Diagnosis Symptomatic severe aortic stenosis with low ejection fraction Heart failure with reduced ejection fraction due to heart valve disease Mild coronary artery disease by [facility] 11/09/2022 Hyperlipidemia, unspecified History of aortic valve [...] PCP: Magdalena Acosta MD PCP phone number: [phone] Date of Admission: 05/08/2023 ( Hospital Day 0 days ) Attending:Enrique Chua MD ID: Purnima Thacker is a 67 y.o. female w/ PMH of s/p bioprosthetic AVR in 2016 with recent concern for severe restenosis, HTN, HLD, mixed connective tissue disease, who presents in transfer from [employer] with worsening BONILLA and weight gain [...] four days, which promptedher to present to [employer]. She also endorses some intermittent retrosternal chest pain with exertion. She endorses some dizziness with exertion, but has not gotten faint or passed out. At [facility] she was noted to be afebrile, blood pressure 105/64, HR 120s, satting 95% on 2L NC. Labs from [facility] are below, of note she had [...] 89/59, which prompted the transfer to us. [facility] labs: CBC - Hgb 10.5 CMP - Cr 1.1 BNP 78593 HsTrop 1358 Lactate 1.6 D-dimer 1183 Vasoactive [...] tissue disease, who presents in [facility] BONILLA and weight gain concerning [...] #Routine Diet: Daily Healthy Menu Choices/Cardiac diet ([facility]) DVT Prophylaxis: heparin gtt GI Prophylaxis: none [...] to the planned procedure. Hand Hygiene: The hr shared services consultant did perform hand hygiene prior to arterial [...] Successful arterial line placement. Crispin Timmons MD Ring Spinner Associated attestation - Onelia Schwartz MD - [...] (flow was non-pulsatile) and appearance of blood. [place]-Marily catheter was placed and locked at 55 [...] information for follow-up [facility], [place] [address] [place] [address] Cardiac Rehab, [place] [address] [place] [address] [facility], [place] [address] [place] [address] Transportation: family or friend will provide *Brother [...] Type: *No Product type* / Secondary Insurance: [employer] [place] Prescription Coverage: Yes This plan was formulated with input from patient, family (please identify family/friend involved ifapplicable) and team. All are in agreement with plan. Aliza Martino MSN-Ed, RN ACM senior premium auditor Office of Care Management Pager #[phone] * Plan of Care - Favian Mckeon [...] Lana Chaudhary RN - 05/21/2023 4:46 PM [facility] referral OFFICE OF CARE MANAGEMENT [...] Type: *No Product type* / Secondary Insurance: [facility] [place] Last Physical Therapy Recommendation: (Home [...] planning needs. describing our affiliations within the [facility] and educate about their right to choose where referrals are sent. provide a list of Home Health Agencies / Durable Medical Equipment vendors which serve their preferred geographic area. They have requested referrals to: [facility] [address] [place] [address] [facility] [place], [place] Note routed to a Senior Principal Software Engineer who will communicate referrals to facilities and provide any required information. Transportation: family or friend will provide *Brother Raymond on Tuesday 05/22 at 1000 Barriers to discharge: Does not have home 22/02 assist available until tomorrow Tuesday 05/22 Plan going forward: Discharge home into the 22/02 home care of brother Raymond with [facility] and [facility] PT/OT services on Tuesday 05/22 [...] Attending: All Staff: Staff Role Juanita Almaguer Mat Sewer Laure Ricks PA Physician Environmental Health And Safety Leader Magdalena Rodriguez RN Radiology Nurse Consuelo Espinoza collection technician Nurse Post-operative diagnosis/Indication: Right pleural effusion Name [...] Type: *No Product type* / Secondary Insurance: [employer] [facility] [place] Last Physical Therapy Recommendation: usp facility, swing bed rehabilitation facility with to be determined Last Occupational Therapy Recommendation: with Plan for discharge is: Group Home Facility / Swing Outpatient Agency/Support Group Needs: None Agency Referrals: Based on discussions with the multi-disciplinary healthcare team, the patient would benefit from SNF / Swing level of care at discharge. I have met with the patient to: discuss discharge planning needs. provide the [facility], Office of Care Management letter from the Manager Pool pertaining to rehab referrals. provide a letter describing our affiliations within the [facility] and educate about their right to choose where referrals are sent. provide the CMS Star Quality Rating handout. review the different levels of rehab including SNF, swing, and acute. provide a list of facilities within their preferred geographic area. request that they provide at least three choices for referral. They have requested referrals to: [facility] [address] [place] [address] [facility] ([facility]) [address] [place] [address] (Accepts pts only after exhausting all other local SNF options) [facility] (Swing) ([facility]) [address] [place] [address] PHONE: [phone] FAX: [phone] [facility] ([facility]) [facility]) [address] [place] [address] PHONE: [phone] FAX: [phone] Note routed to a Senior Principal Software Engineer who will communicate referrals to facilities [...] Crenshaw RN - 05/17/2023 10:25 AM EDT [facility]ATION Purnima Thacker was seen today regarding participation in the outpatient Phase 2 Cardiac Rehabilitation at [facility]. The patient agrees to a referral [...] from the original note were not included. [facility] NEPHROLOGY/HYPERTENSION CONSULT NOTE PATIENT: Purnima Thacker : 1955 Magdalena Acotsa MD REASON FOR CONSULTATION: EVANS HPI: Purnima [...] in her course. She ultimately underwent a fkdae-yi-qzdmj procedure on and tolerated it well (see operative details). [facility] and sedated on some pressors support.. [...] 1423 05/12/23 1105 PHART 7.39 7.37 7.34* JTF9HDK 33* 36 42 PO2ART 101 102 73* EGY2XPT 19.5* 20.4 22.1 LACTATEVEN 1.5 1.8 2.8* JPQ0NMP 40 40 40 PFRATIOART2 252 255 182 VBG (Venous Blood Gas) Recent Labs 05/12/23 1557 05/12/23 1423 05/12/23 1105 LACTATEVEN 1.5 1.8 2.8* Mixed Venous Sat Recent Labs 05/12/23 1425 05/12/23 0508 05/12/23 0321 Z1CQGC7 59.9 30.7 32.7 LFT's: Recent Labs 05/14/23 0110 05/13/23 0115 05/12/23 0600 BILITOT 0.4 0.5 0.9 BILIDIR -- 0.3 -- ALBUMIN 3.6 3.0* 3.5 ALKPHOS 86 85 100 ALT 437* 903* 1,174* AST 319* 792* 1,435* No results found for: UPROTCREAT No results found for: TPROTEINPEP, ALBELECT No results found for: MICROALBUR, WQVI24EOZ No results found for: HA1C Lab Results Component Value Date CALCIUM 8.5 05/14/2023 PHOS 4.7 (H) 05/08/2023 No results found for: 25OHVITD MICROBIOLOGY: ProcedureComponentValueUnitsDate/TimeUrine culture [[id number]]Collected: 05/11/231921Lab Status: Final resultSpecimen: Clean Catch UrineUpdated: [...] consulted for assessment if this patient needs COSMETICS PRESSER. Atthis time, we can likely hold off on COSMETICS PRESSER. Her volume status appears sufficient and her metabolic kanwal angements with mild acidosis is not too profound. Patient does not have significant uremic symptoms. We can hold off for today, but the patient is a high risk candidate for needing COSMETICS PRESSER in future daysespecially if her Cr curve trends the direction it is for the next several days. S/p Qysnu-jm-Gjzwf TF TAVR: Management per cardiology. On milrinone gtt. PLAN: - Please obtain following diagnostics: renal US, urinalysis, urine prot/Cr ratio, urine albumin/Cr ratio, CK, uric acid, serum osmol, daily VBGs - No acute indications for COSMETICS PRESSER/dialysis. We will keep close eye on Cr trend, volume status, and metabolics to ensure patient still does not need COSMETICS PRESSER as she ensues intrinsic renal recovery - [...] M.H.Katherine., M.A. PGY-V Nephrology-Hypertension Fellow Page # [phone] [facility] [address] 2nd floor, Director Athletic [address] [place] [address] * Care Management - Mario Alberto Olmos [...] Type: *No Product type* / Secondary Insurance: [facility] Plan for discharge is: Home [...] for a TAVR at 730. Returned to [facility] at 0945. Was intubated in the laborer dairy farm due to agitation. Maintained bedrest for [...] Operative Note Patient Name: Purnima Thacker : [id number] MR#: [id number] Case Date: 05/12/2023 Surgeon: Surgeon(s) and Role: [...] procedure Note: Patient Name: Purnima Thacker : [id number] MR#: [id number] Case Date: 05/12/2023 Operators Surgeon: Surgeon(s) and [...] main with 4.0 x 30 mm Resolute Geary Drug Eluting Stent Perclose x1 + Angio-seal 8 Fr x1, RFA Manual pressure, LFA Manual pressure, LFV Endotracheal intubation (performed by cardiac anesthesia) Preliminary findings: Successful right transfemoral TAVR Vasht-gc-Ourqu with a 23 mm Lai 3 THV. [...] MD, M.Sc. Structural Heart Disease Fellow Pager :[phone] Antelmo Sharma MD Pager [phone] * Op Note - Alirio Hudson MD - 05/12/2023 7:37 AM EDT Preop Diagnosis: Severe aortic stenosis, symptomatic. Postop Diagnosis: Same. Procedure: Transfemoral TAVR procedure with 23mm valve. Surgeon: Alirio Hudsno M.D. Stone Carver: Danny CULP Procedure: The patient was taken to the laborer dairy farm. The patient had monitored anesthesia care. 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 [address] [address] STRUCTURAL HEART DISEASE CONSULTATION NOTE PRIMARY CARE [...] who had been referred for possible TAVR tgwlt-nx-fpffu evaluation. Her primary symptoms are of dyspnea [...] [facility]. 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 She states [...] [facility] [place] 11/09/2022 Heart failure with reduced ejection fraction [...] hour(s)) Lactate, whole blood, send to lab ([facility] Result Value Ref Range Lactate WB 1.8 [...] leads Confirmed by MD Harshil, Enrique Bell ([id number]) on 05/10/2023 8:11:46 AM Assessment and Plan: [...] alert Dr. Hudson of her inpatient status, [place] primary cardiac surgeon. Based on recent clinic [...] Antelmo Sharma MD Structural Heart Disease Pager [phone] * Plan of Care - Sarahi Nice RN - 05/10/2023 3:55 AM EDTSumavis: RN Note and Care Plan Sarahi Nice RN assumed care of pt at time of their arrival to room 362 from [facility]. Pt voices shortness of breath [...] VTE (Venous Thromboembolism) Risk Flowsheets (Taken 05/09/2023 8666) VTE Prevention/Management: anticoagulant therapy Intervention: Prevent Infection [...] listening utilized Taken 05/08/20231999 by Alivia Kauffman project development engineer/Support System Care: self-care encouraged support provided Problem: [...] Transfer from another hospital Location: admitted from [facility] Reason for Hospitalization: Critical aortic stenosis, causing symptoms Past medical History: Past Medical History: Diagnosis Date Anemia Hospitalizations Within the Past 30 Days: no previous admission in last 30 days Current Decision-Making Capacity: Self If AD's have not been completed the following surrogate would be surrogate decision maker per [place] surrogate decision making law. (Only good for 180 days) Any patient receiving care in [place] must abide by [place] law. The hierarchy for surrogate decision making [...] agent with financial power of litigation attorney or a conservator appointed in [...] DME: none Home Address confirmed as: [address] [place] [address] Social & Family Supports: All names listed [...] Type: *No Product type* / Secondary Insurance: [facility] ONLY if patient has Medicare A&B - Does this patient have secondary insurance?: Yes ; Prescription Coverage: Yes Preferred Pharmacy: updated to [facility] [place] Status: Patient is a : No Primary Care Provider confirmed: Magdalena Acosta MD [phone] Patient/Caregiver Goals of Treatment: Potential Needs for [...] transition of care planning. Alie Bradshaw RN, Pager-[phone] * Plan of Care - Emily Lucero RN - 05/08/2023 2:54 PM EDT OUTCOME EVALUATION NOTE: OUTCOME SUMMARY: Pt arrived from [facility]. A&O, no c/o pain or SOB. [...] 4:15 PM EDT Office Visit Dermatology at [place] [address] [place] [id number] Marek Bonilla MD [address] [facility] [place] [address] Scheduled Referrals Name Type Priority Associated Diagnoses [...] Heart Cath W/Inj L Ventriculography, Img S&I ([id number]) 05/12/2023 7:37 AM EDT Aortic valve stenosis, [...] COLOR DOPP (07/08/2023 12:15 PM EST) [facility] EF 20 HEARTLAB SYSTEM Anatomical Region Laterality Modality Cardiac Other 07/08/2023 10:3 1 AM EST Narrative 07/08/2023 12:26 PM EST [address] [place] [address] ? Echocardiogram Report Name: PURNIMA THACKER ?Study Date: 07/08/2023 10:31 AMBP: 118/60 mmHg ? Patient Location: : 1955 ? Height: 155 cm ? Account: [id number] Age: 67 yrs ? Weight: 74 kg Gender: Female ?BSA: 1.7 m2 Ordering Physician: ALIRIO HUDSON Referring Physician: VINOD JUÁREZ Performed By: Felicia Norris RDCS Reason For Study: S/P TAVR Exam Location: [facility]. Interpretation Summary Left ventricular systolic [...] no significant change (post-procedure). Procedure Limited - 50232. Doppler - 72423. Color Doppler - 10457. Satisfactory quality. This study is limited because [...] Note Lee Kincaid MD - 07/08/2023 [address] [place] [address] Echocardiogram Report Name: KIRSTIE PURNIMA M Study Date: 310:31 AMBP: 118/60 mmHg Patient Location: : 1955 Height: 155 cm Account: [id number] Age: 67 yrs Weight: 74 kg Gender: Female BSA: 1.7 m2 Ordering Physician: ALIRIO HUDSON Referring Physician: VINOD JUÁREZ Performed By: Felicia Norris RDCS Reason For Study: S/P TAVR Exam Location: [facility]. Interpretation Summary Left ventricular systolic [...] is nosignificant change (post-procedure). Procedure Limited - 81694. Doppler - 90736. Color Doppler - 06731. Satisfactoryquality. This study is limited because of [...] EST) Glucose 93 65 - 199 mg/dL [facility] Comment:Diabetes: >=200 mg/d L plus symptoms Blood Urea Nitrogen 19(H) 8 - 18 mg/dL [facility] Creatinine 0.81 0.70 - 1.20 mg/dL [facility] Sodium 142 135 - 145 mmol/L [facility] Potassium 3.8 3.5 - 5.0 mmol/L [facility] Comment: Please note: ??Patients with WBC >100,000 may have falsely elevated Potassium levels. ??For accurate Potassium quantification in these patients send serum separator tube (gold top) for subsequent determinations. ??Contact the Clinical Chemistry Laboratory if there are any questions. Chloride 104 98 - 107 mmol/L [facility] Carbon Dioxide 26 22 - 31 mmol/L [facility] Anion Gap 12 5 - 15 mmol/L [facility] Calcium 10.2 8.5 - 10.5 mg/dL [facility] Protein, Total 7.4 6.1 - 8.0 g/dL [facility] Albumin 4.1 3.2 - 5.2 g/dL [facility] Aspartate Aminotransferase 24 0 - 30 unit/L [facility] Alanine Aminotransferase 12 0 - 30 unit/L [facility] Alkaline Phosphatase 93 35 - 105 unit/L [facility] Bilirubin, Total 0.3 0.2 - 1.3 mg/dL [facility] Est Glomerular Filtration Rate 80 >=60 mL/min/1. 73 m?? [facility] Comment: This patient's estimated GFR [...] Lab Alirio Hudson MD CHEMISTRY ORDERABLE S [facility] [place] [place] [address] * (ABNORMAL) Basic Metabolic Panel (non-fasting) (05/22/2023 3:57 AM EDT) Pathologist [facility] Glucose 88 65 - 199 mg/dL [facility] Comment:Diabetes: >=200 mg/d L plus symptoms Blood Urea Nitrogen 21(H) 8 - 18 mg/dL [facility] Creatinine 0.69(L) 0.70 - 1.20 mg/dL [facility] Sodium 136 135 - 145 mmol/L [facility] Potassium 3.6 3.5 - 5.0 mmol/L [facility] Comment: Please note: ??Patients with WBC >100,000 may have falsely elevated Potassium levels. ??For accurate Potassium quantification in these patients send serum separator tube (gold top) for subsequent determinations. ??Contact the Clinical Chemistry Laboratory if there are any questions. Chloride 102 98 - 107 mmol/L [facility] Carbon Dioxide 23 22 - 31 mmol/L [facility] Anion Gap 11 5 - 15 mmol/L [facility] Calcium 8.6 8.5 - 10.5 mg/dL [facility] Est Glomerular Filtration Rate 95 >=60 mL/min/1. 73 m?? [facility] Comment: This patient's estimated [...] Agency Comment Spec In Lab Mara Serrano MAILING MACHINE ASSISTANT CHEMISTRY ORDERABL ES [facility] [place] [address] * (ABNORMAL) Basic Metabolic Panel (non-fasting) (05/21/2023 5:06 AM EDT) Glucose 87 65 - 199 mg/dL [facility] Comment:Diabetes: >=200 mg/d L plus symptoms Blood Urea Nitrogen 25(H) 8 - 18 mg/dL [facility] Creatinine 0.84 0.70 - 1.20 mg/dL [facility] Sodium 136 135 - 145 mmol/L [facility] Potassium 3.6 3.5 - 5.0 mmol/L [facility] Comment: Please note: ??Patients with WBC >100,000 may have falsely elevated Potassium levels. ??For accurate Potassium quantification in these patients send serum separator tube (gold top) for subsequent determinations. ??Contact the Clinical Chemistry Laboratory if there are any questions. Chloride 102 98 - 107 mmol/L [facility] Carbon Dioxide 26 22 - 31 mmol/L [facility] Anion Gap 8 5 - 15 mmol/L [facility] Calcium 8.9 8.5 - 10.5 mg/dL [facility] Est Glomerular Filtration Rate 76 >=60 mL/min/1. 73 m?? [facility] Comment: This patient's estimated GFR [...] Narrative Resulting Agency Comment Spec In Lab [facility] MAILING MACHINE ASSISTANT CHEMISTRY ORDERABL ES Performing Organization Address [facility] Co de Phone Number [facility] [place] [place] [address] * Lavender Tube HOLD (05/20/2023 2:52 AM EDT) Lavender Hold Sample in lab. [facility] Blood Venous Draw / Unknown 05/20/2023 2:52 AM EDT 05/20/2023 3:04 AM EDT Mara [facility] [place] [facility] [place] MAILING MACHINE ASSISTANT HEMATOLOGY ORDERAB LES Performing Organization Address [facility] de Phone Number [facility] [place] [place] [address] * (ABNORMAL) Basic Metabolic Panel (non-fasting) (05/20/2023 2:52 AM EDT) Glucose 152 65 - 199 mg/dL [facility] Comment:Diabetes: >=200 mg/d L plus symptoms Blood Urea Nitrogen 33(H) 8 - 18 mg/dL [facility] Creatinine 0.82 0.70 - 1.20 mg/dL [facility] Sodium 137 135 - 145 mmol/L [facility] Potassium 3.7 3.5 - 5.0 mmol/L [facility] Comment: Please note: ??Patients with WBC >100,000 may have falsely elevated Potassium levels. ??For accurate Potassium quantification in these patients send serum separator tube (gold top) for subsequent determinations. ??Contact the Clinical Chemistry Laboratory if there are any questions. Chloride 99 98 - 107 mmol/L [facility] Carbon Dioxide 22 22 - 31 mmol/L [facility] Anion Gap 16(H) 5 - 15 mmol/L [facility] Calcium 9.0 8.5 - 10.5 mg/dL [facility] Est Glomerular Filtration Rate 78 >=60 mL/min/1. 73 m?? [facility] Comment: This patient's estimated GFR [...] Agency Comment Spec In Lab Mara [place] MAILING MACHINE ASSISTANT CHEMISTRY ORDERABL ES Performing Organization Address [facility] Co de Phone Number [facility] [place] [address] * (ABNORMAL) Potassium (05/20/2023 2:52 AM EDT) [facility] Potassium 3.4(L) 3.5 - 5.0 mmol/L [facility] Comment: Please note: ??Patients with WBC >100,000 may have falsely elevated Potassium levels. ??For accurate Potassium quantification in these patients send serum separator tube (gold top) for subsequent determinations. ??Contact the Clinical Chemistry Laboratory if there are any questions. Blood 05/20/2023 2:52 AM EDT 05/20/2023 3:03 AM EDT Narrative Resulting Agency Comment Spec In Lab Mara Maggie MAILING MACHINE ASSISTANT CHEMISTRY ORDERABL ES Performing Organization Address City/[facility] Co de Phone Number [facility] [place] [address] * XR Chest PA & Lateral (Generic) [...] questions please contact the health clinical care coordinator that requested your imaging first. ? Electronically signed by: Chyna Johnson MD, [facility] ??([phone]), at 05/19/2023 2:19 PM Narrative 05/19/2023 2:19 [...] have questions please contactthe health clinical care coordinator that requested your imaging first. Alirio Hudson MD IMG DX ORDERABLES * (ABNORMAL) Basic Metabolic Panel (non-fasting) (05/19/2023 5:49 AM EDT) Glucose 93 65 - 199 mg/dL [facility] Comment:Diabetes: >=200 mg/d L plus symptoms Blood Urea Nitrogen 45(H) 8 - 18 mg/dL [facility] Creatinine 1.02 0.70 - 1.20 mg/dL [facility] Sodium 138 135 - 145 mmol/L [facility] Potassium 3.9 3.5 - 5.0 mmol/L [facility] Comment: Please note: ??Patients with WBC >100,000 may have falsely elevated Potassium levels. ??For accurate Potassium quantification in these patients send serum separator tube (gold top) for subsequent determinations. ??Contact the Clinical Chemistry Laboratory if there are any questions. Chloride 102 98 - 107 mmol/L [facility] Carbon Dioxide 26 22 - 31 mmol/L [facility] Anion Gap 10 5 - 15 mmol/L [facility] Calcium 9.7 8.5 - 10.5 mg/dL [facility] Est Glomerular Filtration Rate 60 >=60 mL/min/1. 73 m?? [facility] Comment: This patient's estimated [...] Agency Comment Spec In Lab Mara Serrano MAILING MACHINE ASSISTANT CHEMISTRY ORDERABL ES [facility] [place] [address] * IR Chest Tube Placement Right (05/18/2023 [...] EDT) Glucose 95 65 - 199 mg/dL [facility] Comment:Diabetes: >=200 mg/d L plus symptoms Blood Urea Nitrogen 71(H) 8 - 18 mg/dL [facility] Comment:result rechecked-[facility] Creatinine 1.64(H) 0.70 - 1.20 mg/dL [facility] Comment:result rechecked-[facility] Sodium 137 135 - 145 mmol/L [facility] Potassium 3.7 3.5 - 5.0 mmol/L [facility] Comment: Please note: ??Patients with WBC >100,000 may have falsely elevated Potassium levels. ??For accurate Potassium quantification in these patients send serum separator tube (gold top) for subsequent determinations. ??Contact the Clinical Chemistry Laboratory if there are any questions. Chloride 100 98 - 107 mmol/L [facility] Carbon Dioxide 24 22 - 31 mmol/L [facility] Anion Gap 13 5 - 15 mmol/L [facility] Calcium 9.7 8.5 - 10.5 mg/dL [facility] Est Glomerular Filtration Rate 34(L) >=60 mL/min/1. 73 m?? [facility] Comment: This patient's estimated GFR [...] Agency Comment Spec In Lab Mara Serrano MAILING MACHINE ASSISTANT CHEMISTRY ORDERABL ES [facility] [place] [address] * XR Chest PA & Lateral (Generic) [...] questions please contact the health clinical care coordinator that requested your imaging first. [...] have questions please contactthe health clinical care coordinator that requested your imaging first. Alirio Hudson MD IMG DX ORDERABLES * (ABNORMAL) Comprehensive metabolic panel (non-fasting) (05/17/2023 4:35 AM EDT) Glucose 89 65 - 199 mg/dL [facility] Comment:Diabetes: >=200 mg/d L plus symptoms Blood Urea Nitrogen 97(H) 8 - 18 mg/dL [facility] Creatinine 2.97(H) 0.70 - 1.20 mg/dL [facility] Comment:result rechecked-JSJc Sodium 135 135 - 145 mmol/L [facility] Potassium 4.1 3.5 - 5.0 mmol/L [facility] Comment: Please note: ??Patients with WBC >100,000 may have falsely elevated Potassium levels. ??For accurate Potassium quantification in these patients send serum separator tube (gold top) for subsequent determinations. ??Contact the Clinical Chemistry Laboratory if there are any questions. Chloride 97(L) 98 - 107 mmol/L [facility] Carbon Dioxide 22 22 - 31 mmol/L [facility] Anion Gap 16(H) 5 - 15 mmol/L [facility] Calcium 9.6 8.5 - 10.5 mg/dL [facility] Protein, Total 6.5 6.1 - 8.0 g/dL [facility] Albumin 3.7 3.2 - 5.2 g/dL [facility] Aspartate Aminotransferase 58(H) 0 - 30 unit/L [facility] Alanine Aminotransferase 66(H) 0 - 30 unit/L [facility] Alkaline Phosphatase 86 35 - 105 unit/L [facility] Bilirubin, Total 0.6 0.2 - 1.3 mg/dL [facility] Est Glomerular Filtration Rate 17(L) >=60 mL/min/1. 73 m?? [facility] Comment: This patient's estimated GFR [...] Lab Alirio Hudson MD CHEMISTRY ORDERABLE S [facility] [place] [place] [address] * Potassium (05/16/2023 11:15 PM EDT) Potassium 3.7 3.5 - 5.0 mmol/L [facility] Comment: Please note: ??Patients with [...] MD CHEMISTRY ORDERABLE S Performing Organization Address [facility] Co de Phone Number [facility] [place] [place] [address] * Magnesium (05/16/2023 5:22 PM EDT) Magnesium 0.96 0.69 - 1.07 mmol/L [facility] Blood 05/16/2023 5:22 PM EDT 05/16/2023 5:27 PM EDT Narrative Resulting Agency Comment Spec In Lab Alirio Hudson MD CHEMISTRY ORDERABLE S Performing Organization Address [facility] Co de Phone Number [facility] [place] [address] * (ABNORMAL) Basic Metabolic Panel (non-fasting) (05/16/2023 5:22 PM EDT) Glucose 106 65 - 199 mg/dL [facility] Comment:Diabetes: >=200 mg/d L plus symptoms Blood Urea Nitrogen 103(H) 8 - 18 mg/dL [facility] Creatinine 3.91(H) 0.70 - 1.20 mg/dL [facility] Comment:result rechecked-imm Sodium 132(L) 135 - 145 mmol/L [facility] Potassium 3.6 3.5 - 5.0 mmol/L [facility] Comment: Please note: ??Patients with WBC >100,000 may have falsely elevated Potassium levels. ??For accurate Potassium quantification in these patients send serum separator tube (gold top) for subsequent determinations. ??Contact the Clinical Chemistry Laboratory if there are any questions. Chloride 92(L) 98 - 107 mmol/L [facility] Carbon Dioxide 22 22 - 31 mmol/L [facility] Anion Gap 18(H) 5 - 15 mmol/L [facility] Calcium 9.7 8.5 - 10.5 mg/dL [facility] Est Glomerular Filtration Rate 12(L) >=60 mL/min/1. 73 m?? [facility] Comment: This patient's estimated GFR [...] Lab Alirio Hudson MD CHEMISTRY ORDERABLE S [facility] [place] [address] * (ABNORMAL) Potassium (05/16/2023 11:43 AM EDT) [facility] Potassium 3.3(L) 3.5 - 5.0 mmol/L [facility] Comment: Please note: ??Patients with [...] Lab Alirio Hudson MD CHEMISTRY ORDERABLE S [facility] [place] [address] * (ABNORMAL) Ferritin (05/16/2023 4:41 AM EDT) Ferritin 1,813(H) 30 - 400 ng/mL [facility] Comment: [place] [facility] [place] interpret with [place]. Reference ranges for females greater than 50 years of age approach values for men, i.e., 30-400 ng/mL. Blood 05/16/2023 4:41 AM EDT 05/16/2023 4:54 AM EDT Narrative Resulting Agency Comment Spec In Lab Kristopher Ayoub MD CHEMISTRY ORDERABLES [facility] [place] [address] * (ABNORMAL) PTH (05/16/2023 4:41 AM EDT) [facility] Parathyroid Hormone 120(H) 15 - 65 pg/mL [facility] Blood 05/16/2023 4:41 AM EDT 05/16/2023 4:54 AM EDT Narrative Resulting Agency Comment Spec In Lab Kristopher Ayoub MD CHEMISTRY ORDERABLES Performing Organization Address City/[facility]/ZIP Co de Phone Number [facility] [place] [address] * Vitamin D, 25-Hydroxy (05/16/2023 4:41 AM EDT) Pathologist [facility] Vitamin D Total 25 OH 33 21 - 100 ng/mL [facility] Vit D Interp Sufficient [facility] Blood 05/16/2023 4:41 AM EDT 05/16/2023 4:54 AM EDT Narrative Resulting Agency Comment Spec In Lab Kristopher Ayoub MD CHEMISTRY ORDERABLES [facility] [place] [address] * (ABNORMAL) Blood Gas Venous ([facility]) (05/16/2023 4:22 AM EDT) Pathologist [facility] pH, Venous 7.41 7.32 - 7.42 [facility] PCO2, Venous 32(L) 41 - 51 mmHg [facility] PO2, Venous 73(H) 25 - 40 mmHg [facility] Bicarbonate, Venous 19.6 mmol/L [facility] Base Excess, Venous -5.1 mmol/L [facility] Hgb Blood Gas 9.7(L) 11.7 - 15.5 g/dL [facility] Oxyhemoglobin, Venous 92.8 % [facility] Carboxyhemoglob in, Venous 0.1 % [facility] Comment: Nonsmokers: 0.5-1.5% COHB Smokers: Variable, but usually less than 10% Toxic: 20-30% COHB Lethal: Greater than 60% COHB Methemoglobin, Venous 0.3 <=1.5 % [facility] Na Whole Blood 130(L) 135 - 145 mmol/L [facility] K Whole Blood 3.7 3.5 - 5.0 mmol/L [facility] Comment: Please note: Patients with WBC >100,000 may have falsely elevated Potassium levels. Contact the Clinical Chemistry Laboratory if there are any questions. ICa Whole Blood 1.15 1.15 - 1.33 mmol/L [facility] Comment: Note: ??Total bilirubin higher than 20 mg/dL may lead to falsely low ionized calcium. CL Whole Blood 95(L) 98 - 107 mmol/L [facility] Gluc Whole Bld 82 65 - 199 mg/dL [facility] Comment:Diabetes: >=200 mg/d L plus symptoms Lactate WB 1.1 0.5 - 2.2 mmol/L [facility] Blood Gas Source Venous [facility] Blood Venous Draw / Unknown 05/16/2023 4:22 AM EDT 05/16/2023 4:31 AM EDT Narrative Resulting Agency Comment Spec In Lab Bonita TOBAR CHEMISTRY ORDERABLES [facility] [place] [address] * (ABNORMAL) Differential, Automated (05/16/2023 4:20 AM EDT) Neutrophil % 84.1 % [facility] Neutrophil Absolute 6.22(H) 1.70 - 6.10 x10(3)/mc L [facility] Lymph % 5.8 % [facility] Lymphocytes Abs 0.4(L) 0.9 - 3.2 x10(3)/mc L [facility] Monocyte % 8.8 % [facility] Monocyte Abs 0.6 0.3 - 0.9 x10(3)/mc L [facility] Eos % 0.4 % [facility] Eosinophils Abs 0.0 0.0 - 0.4 x10(3)/mc L [facility] Basophil % 0.0 % [facility] Baso Absolute 0.0 0.0 - 0.1 x10(3)/mc L [facility] Immature Gran % 0.90 % [facility] Comment: Immature granulocytes(IG's)percentage and absolute count will include metamyelocytes, myelocytes, and promyelocytes. Blood smears from CBCs yielding IG's will be scanned manually for concordance. If this scan disagrees with the automated IG or if promyelocytes are noted, a manual differential will be performed. Immature Gran Absolute 0.07(H) 0.00 - 0.04 x10(3)/mc L [facility] Blood 05/16/2023 4:20 AM EDT 05/16/2023 4:29 AM EDT Narrative Resulting Agency Comment Spec In Lab James Agustin MD HEMATOLOGY ORDER JODIE [facility] [place] [address] * (ABNORMAL) Hemogram (05/16/2023 4:20 AM EDT) White Blood Cell 7.4 4.0 - 9.5 x10(3)/mc L [facility] Red Blood Cell 2.40(L) 4.00 - 5.21 x10(6)/mc L [facility] Hemoglobin 7.8(L) 11.7 - 15.5 g/dL [facility] Hematocrit 22.5(L) 35.7 - 45.8 % [facility] Mean Cell Volume 93.8 82.6 - 94.4 fL [facility] Mean Cell Hemoglobin 32.5(H) 27.1 - 32.0 pg [facility] Mean Cell Hemoglobin Concentration 34.7 31.7 - 35.0 g/dL [facility] Platelet 120(L) 145 - 357 x10(3)/mc L [facility] RDW Standard Deviation 42.9 37.0 - 46.0 fL [facility] RDW coefficient of variation 12.9 11.5 - 14.1 % [facility] Mean Platelet Volume 11.3 7.6 - 12.9 fL [facility] NRBC% auto 0.7 % [facility] NRBC Absolute 0.050(H) 0.000 - 0.000 x10(3)/mc L [facility] Blood 05/16/2023 4:20 AM EDT 05/16/2023 4:29 AM EDT Narrative Resulting Agency Comment Spec In Lab James Agustin MD HEMATOLOGY ORDER JODIE [facility] [place] [address] * (ABNORMAL) Basic Metabolic Panel (non-fasting) (05/16/2023 4:20 AM EDT) Glucose 89 65 - 199 mg/dL [facility] Comment:Diabetes: >=200 mg/d L plus symptoms Blood Urea Nitrogen 108(H) 8 - 18 mg/dL [facility] Creatinine 4.74(H) 0.70 - 1.20 mg/dL [facility] Comment:result rechecked-[facility] Sodium 132(L) 135 - 145 mmol/L [facility] Potassium 3.9 3.5 - 5.0 mmol/L [facility] Comment: Please note: ??Patients with WBC >100,000 may have falsely elevated Potassium levels. ??For accurate Potassium quantification in these patients send serum separator tube (gold top) for subsequent determinations. ??Contact the Clinical Chemistry Laboratory if there are any questions. Chloride 95(L) 98 - 107 mmol/L [facility] Carbon Dioxide 18(L) 22 - 31 mmol/L [facility] Anion Gap 19(H) 5 - 15 mmol/L [facility] Calcium 9.2 8.5 - 10.5 mg/dL [facility] Est Glomerular Filtration Rate 10(L) >=60 mL/min/1. 73 m?? [facility] Comment: This patient's estimated GFR [...] Lab Alirio Hudson MD CHEMISTRY ORDERABLE S [facility] [place] [address] * (ABNORMAL) Iron and TIBC (05/16/2023 4:20 AM EDT) Iron 31 30 - 150 mcg/dL [facility] TIBC 259 250 - 450 mcg/dL [facility] Iron Saturation 12(L) 20 - 50 % [facility] Blood 05/16/2023 4:20 AM EDT 05/16/2023 4:29 AM EDT Narrative Resulting Agency Comment Spec In Lab Kristopher Ayoub MD CHEMISTRY ORDERABLES [facility] [place] [address] * (ABNORMAL) Basic Metabolic Panel (non-fasting) (05/15/2023 12:50 AM EDT) Glucose 101 65 - 199 mg/dL [facility] Comment:Diabetes: >=200 mg/d L plus symptoms Blood Urea Nitrogen 109(H) 8 - 18 mg/dL [facility] Creatinine 5.62(H) 0.70 - 1.20 mg/dL [facility] Comment:result rechecked-[place] Sodium 131(L) 135 - 145 mmol/L [facility] Comment:result rechecked-[place] Potassium 3.7 3.5 - 5.0 mmol/L [facility] Comment: result rechecked-[place] Please note: ??Patients with WBC >100,000 may have falsely elevated Potassium levels. ??For accurate Potassium quantification in these patients send serum separator tube (gold top) for subsequent determinations. ??Contact the Clinical Chemistry Laboratory if there are any questions. Chloride 92(L) 98 - 107 mmol/L [facility] Comment:result rechecked-[place] Carbon Dioxide 18(L) 22 - 31 mmol/L [facility] Comment:result rechecked-[place] Anion Gap 21(H) 5 - 15 mmol/L [facility] Calcium 8.9 8.5 - 10.5 mg/dL [facility] Est Glomerular Filtration Rate 8(L) >=60 mL/min/1. 73 m?? [facility] Comment: This patient's estimated GFR [...] Lab Alirio Hudson MD CHEMISTRY ORDERABLE S [facility] [place] [place] [address] * (ABNORMAL) Hemogram (05/15/2023 12:50 AM EDT) White Blood Cell 9.1 4.0 - 9.5 x10(3)/mc L [facility] Red Blood Cell 2.19(L) 4.00 - 5.21 x10(6)/mc L [facility] Hemoglobin 7.2(L) 11.7 - 15.5 g/dL [facility] Hematocrit 20.6(L) 35.7 - 45.8 % [facility] Mean Cell Volume 94.1 82.6 - 94.4 fL [facility] Mean Cell Hemoglobin 32.9(H) 27.1 - 32.0 pg [facility] Mean Cell Hemoglobin Concentration 35.0 31.7 - 35.0 g/dL [facility] Platelet 109(L) 145 - 357 x10(3)/mc L [facility] RDW Standard Deviation 43.6 37.0 - 46.0 fL [facility] RDW coefficient of variation 12.9 11.5 - 14.1 % [facility] Mean Platelet Volume 10.4 7.6 - 12.9 fL [facility] NRBC% auto 2.1 % [facility] NRBC Absolute 0.190(H) 0.000 - 0.000 x10(3)/ L [facility] Blood 05/15/2023 12:5 0 AM EDT 05/15/2023 12:52 AM EDT Narrative Resulting Agency Comment Spec In Lab Alirio Hudson MD HEMATOLOGY ORDERABL ES Performing Organization Address City/State/[facility] Co de Phone Number [facility] [place] [address] * (ABNORMAL) BLOOD GAS 2 VENOUS (05/15/2023 12:49 AM EDT) pH, Venous 7.33 7.32 - 7.42 [facility] PCO2, Venous 37(L) 41 - 51 mmHg [facility] PO2, Venous 34 25 - 40 mmHg [facility] Bicarbonate, Venous 19.1 mmol/L [facility] Base Excess, Venous -6.8 mmol/L [facility] Hgb Blood Gas 10.8(L) 11.7 - 15.5 g/dL [facility] Oxyhemoglobin, Venous 58.1 % [facility] Carboxyhemoglob in, Venous 0.3 % [facility] Comment: Nonsmokers: 0.5-1.5% COHB Smokers: Variable, but usually less than 10% Toxic: 20-30% COHB Lethal: Greater than 60% COHB Methemoglobin, Venous 0.6 <=1.5 % [facility] Na Whole Blood 136 135 - 145 mmol/L [facility] K Whole Blood 3.7 3.5 - 5.0 mmol/L [facility] Comment: Please note: Patients with WBC >100,000 may have falsely elevated Potassium levels. Contact the Clinical Chemistry Laboratory if there are any questions. ICa Whole Blood 1.12(L) 1.15 - 1.33 mmol/L [facility] Comment: Note: ??Total bilirubin higher than 20 mg/dL may lead to falsely low ionized calcium. CL Whole Blood 95(L) 98 - 107 mmol/L [facility] Gluc Whole Bld 101 65 - 199 mg/dL [facility] Comment:Diabetes: >=200 mg/d L plus symptoms Lactate WB 1.3 0.5 - 2.2 mmol/L [facility] Flow, Mike 1.0 LPM [facility] Blood Gas Source Venous [facility] Blood 05/15/2023 12:4 9 AM EDT 05/15/2023 12:49 AM EDT Alirio Hudson MD POINT OF CARE TEST ORDERABLES Performing Organization Address City/State/[facility] Co de Phone Number [facility] [place] [address] * US Retroperitoneal Complete (05/14/2023 3:53 PM [...] who have questions, please contact the health clinical care coordinator that requested your imaging first. ? Hayden Robledo, Staff Physician Electronically Signed Final Report ?? 05/14/2023 04:39 pm Narrative 05/14/2023 4:39 PM EDT Renal ? (Signed Final 05/14/2023 04:39 pm) PATIENT INFO: ID #: ? [id number] ?: ??55 (67 yrs)(F) Name: ? PURNIMA THACKER ?Visit Date: 05/14/2023 03:44 pm PERFORMED BY: Attending: ?Meena CULP, Hayden Stafford Resident: ? Nell CULP, Anand August Performed By: ? Consuelo Tello RDMS Referred By: ?ALIRIO HUDSON Location: ? [place] SERVICE(S) PROVIDED: URETRO - Retroperitoneal Complete - [id number] ? [id number] INDICATIONS: EVANS COMPARISON: CT: Abdomen/Pelvis 05/11/23 RIGHT [...] 05/14/2023 04:39 pm) PATIENT INFO: ID #: [id number] : 55 (67 yrs)(F) Name: PURNIMA THACKER Visit Date: 05/14/2023 03:44 pm PERFORMED BY: Attending: Hayden Robledo MD Resident: Anand Camejo MD Performed By: Consuelo Tello RDMS Referred By: ALIRIO HUDSON Location: [place] SERVICE(S) PROVIDED: URETRO - Retroperitoneal Complete - [id number] INDICATIONS: EVANS COMPARISON: CT: Abdomen/Pelvis 05/11/23 RIGHT [...] who have questions, please contact the health clinical care coordinator that requested your imaging first. Hayden Robledo, Staff Physician Electronically Signed Final Report 05/14/2023 04:39 pm Alirio Hudson MD IMG US GEN ORDERABL ES * CK (05/14/2023 3:17 PM EDT) Creatine Kinase 123 0 - 160 unit/L [facility] Blood 05/14/2023 3:17 PM EDT 05/14/2023 3:31 PM EDT Narrative Resulting Agency Comment Spec In Lab Alirio Hudson MD CHEMISTRY ORDERABLE S Performing Organization Address [facility] Co de Phone Number [facility] [place] [place] [address] * (ABNORMAL) Uric acid (05/14/2023 3:17 PM EDT) Uric Acid 14.9(H) 2.5 - 6.5 mg/dL [facility] Blood 05/14/2023 3:17 PM EDT 05/14/2023 3:31 PM EDT Narrative Resulting Agency Comment Spec In Lab Alirio Hudson MD CHEMISTRY ORDERABLE S Performing Organization Address [facility] Co de Phone Number [facility] [place] [place] [address] * (ABNORMAL) Osmolality (05/14/2023 3:17 PM EDT) Osmolality 311(H) 275 - 295 mOsm/kg [facility] Blood 05/14/2023 3:17 PM EDT 05/14/2023 3:31 PM EDT Narrative Resulting Agency Comment Spec In Lab Alirio Hudson MD [place] [address] * (ABNORMAL) Differential, Automated (05/14/2023 1:10 AM EDT) Neutrophil % 87.2 % [facility] Neutrophil Absolute 9.74(H) 1.70 - 6.10 x10(3)/mc L [facility] Lymph % 3.9 % [facility] Lymphocytes Abs 0.4(L) 0.9 - 3.2 x10(3)/mc L [facility] Monocyte % 7.9 % [facility] Monocyte Abs 0.9 0.3 - 0.9 x10(3)/mc L [facility] Eos % 0.0 % [facility] Eosinophils Abs 0.0 0.0 - 0.4 x10(3)/mc L [facility] Basophil % 0.1 % [facility] Baso Absolute 0.0 0.0 - 0.1 x10(3)/mc L [facility] Immature Gran % 0.90 % [facility] Comment: Immature granulocytes(IG's)percentage and absolute count will include metamyelocytes, myelocytes, and promyelocytes. Blood smears from CBCs yielding IG's will be scanned manually for concordance. If this scan disagrees with the automated IG or if promyelocytes are noted, a manual differential will be performed. Immature Gran Absolute 0.10(H) 0.00 - 0.04 x10(3)/ L [facility] Blood 05/14/2023 1:10 AM EDT 05/14/2023 1:24 AM EDT Narrative Resulting Agency Comment Spec In Lab Bonita TOBAR HEMATOLOGY ORDERABLE S Performing Organization Address City/[facility]/ZIP Co de Phone Number [facility] [place] [place] [address] * (ABNORMAL) Hemogram (05/14/2023 1:10 AM EDT) White Blood Cell 11.2(H) 4.0 - 9.5 x10(3)/mc L [facility] Red Blood Cell 2.19(L) 4.00 - 5.21 x10(6)/mc L [facility] Hemoglobin 7.2(L) 11.7 - 15.5 g/dL [facility] Hematocrit 20.3(L) 35.7 - 45.8 % [facility] Mean Cell Volume 92.7 82.6 - 94.4 fL [facility] Mean Cell Hemoglobin 32.9(H) 27.1 - 32.0 pg [facility] Mean Cell Hemoglobin Concentration 35.5(H) 31.7 - 35.0 g/dL [facility] Platelet 112(L) 145 - 357 x10(3)/mc L [facility] RDW Standard Deviation 41.4 37.0 - 46.0 fL [facility] RDW coefficient of variation 12.5 11.5 - 14.1 % [facility] Mean Platelet Volume 10.4 7.6 - 12.9 fL [facility] NRBC% auto 1.5 % [facility] NRBC Absolute 0.170(H) 0.000 - 0.000 x10(3)/ L [facility] Blood 05/14/2023 1:10 AM EDT 05/14/2023 1:24 AM EDT Narrative Resulting Agency Comment Spec In Lab Bonita TOBAR HEMATOLOGY ORDERABLE S [facility] [place] [address] * (ABNORMAL) Comprehensive metabolic panel (non-fasting) (05/14/2023 1:10 AM EDT) Glucose 120 65 - 199 mg/dL [facility] Comment:Diabetes: >=200 mg/d L plus symptoms Blood Urea Nitrogen 98(H) 8 - 18 mg/dL [facility] Creatinine 4.80(H) 0.70 - 1.20 mg/dL [facility] Comment:result rechecked-ssc Sodium 132(L) 135 - 145 mmol/L [facility] Potassium 4.1 3.5 - 5.0 mmol/L [facility] Comment: Please note: ??Patients with WBC >100,000 may have falsely elevated Potassium levels. ??For accurate Potassium quantification in these patients send serum separator tube (gold top) for subsequent determinations. ??Contact the Clinical Chemistry Laboratory if there are any questions. Chloride 94(L) 98 - 107 mmol/L [facility] Carbon Dioxide 18(L) 22 - 31 mmol/L [facility] Anion Gap 20(H) 5 - 15 mmol/L [facility] Calcium 8.5 8.5 - 10.5 mg/dL [facility] Protein, Total 5.8(L) 6.1 - 8.0 g/dL [facility] Albumin 3.6 3.2 - 5.2 g/dL [facility] Aspartate Aminotransferase 319(H) 0 - 30 unit/L [facility] Alanine Aminotransferase 437(H) 0 - 30 unit/L [facility] Alkaline Phosphatase 86 35 - 105 unit/L [facility] Bilirubin, Total 0.4 0.2 - 1.3 mg/dL [facility] Est Glomerular Filtration Rate 9(L) >=60 mL/min/1. 73 m?? [facility] Comment: This patient's estimated GFR [...] Lab Alirio Hudson MD CHEMISTRY ORDERABLE S [facility] [place] [address] * APTT (05/13/2023 10:15 AM EDT) Partial Thromboplastin Time 27 25 - 37 sec [facility] Comment: The PTT is NOT [...] [facility] de Phone Number [facility] [place] [address] * (ABNORMAL) Prothrombin Time (05/13/2023 10:15 AM EDT) Prothrombin Time 14.6(H) 9.4 - 12.5 sec [facility] International Normalization Ratio 1.3 [facility] Comment: An INR <2.0 indicates [...] MD HEMATOLOGY ORDERABL ES Performing Organization Address [facility] de Phone Number [facility] [place] [address] * EKG 12 Lead (05/13/2023 9:22 AM EDT) Ventricular rate 92 BPM MUSE SYSTEM Atrial Rate 92 BPM MUSE SYSTEM P-R Interval 140 ms MUSE SYSTEM QRS Duration 104 ms MUSE SYSTEM Q-T Interval 384 ms MUSE SYSTEM QTC Calculated (Bezet) 474 ms MUSE SYSTEM Calculated P [place] 33 degrees MUSE SYSTEM Calculated R [place] 41 degrees MUSE SYSTEM Calculated T [place] -35 degrees MUSE SYSTEM INTERPRETATION Sinus rhythm with frequent Premature ventricular complexes Septal infarct , age undetermined ST & T wave abnormality, consider lateral ischemia Abnormal ECG When compared with ECG of 12-MAY-2023 10:10, Premature ventricular complexes are now Present I personally reviewed the tracing and edited the fellows interpretation Confirmed by fellow MD Anitha, Carissa ([id number]) on 05/13/2023 3:25:30 PM Confirmed by Maxx Best ([id number]) on 05/13/2023 8:30:56 PM MUSE SYSTEM 05/13/2023 9:22 AM EDT 05/13/2023 8:30 PM EDT Alirio Hudson MD ECG ORDERABLES MUSE SYSTEM * (ABNORMAL) Differential, Automated (05/13/2023 1:15 AM EDT) Neutrophil % 88.1 % [facility] Neutrophil Absolute 7.62(H) 1.70 - 6.10 x10(3)/mc L [facility] Lymph % 3.1 % [facility] Lymphocytes Abs 0.3(L) 0.9 - 3.2 x10(3)/mc L [facility] Monocyte % 7.9 % [facility] Monocyte Abs 0.7 0.3 - 0.9 x10(3)/mc L [facility] Eos % 0.0 % [facility] Eosinophils Abs 0.0 0.0 - 0.4 x10(3)/mc L [facility] Basophil % 0.1 % [facility] Baso Absolute 0.0 0.0 - 0.1 x10(3)/mc L [facility] Immature Gran % 0.80 % [facility] Comment: Immature granulocytes(IG's)percentage and absolute count will include metamyelocytes, myelocytes, and promyelocytes. Blood smears from CBCs yielding IG's will be scanned manually for concordance. If this scan disagrees with the automated IG or if promyelocytes are noted, a manual differential will be performed. Immature Gran Absolute 0.07(H) 0.00 - 0.04 x10(3)/mc L [facility] Blood 05/13/2023 1:15 AM EDT 05/13/2023 1:29 AM EDT Narrative Resulting Agency Comment Spec In Lab Lorri TOBAR HEMATOLOGY ORDERABLE S [facility] [place] [address] * (ABNORMAL) Hemogram (05/13/2023 1:15 AM EDT) White Blood Cell 8.6 4.0 - 9.5 x10(3)/mc L [facility] Red Blood Cell 2.37(L) 4.00 - 5.21 x10(6)/mc L [facility] Hemoglobin 7.8(L) 11.7 - 15.5 g/dL [facility] Hematocrit 22.2(L) 35.7 - 45.8 % [facility] Mean Cell Volume 93.7 82.6 - 94.4 fL [facility] Mean Cell Hemoglobin 32.9(H) 27.1 - 32.0 pg [facility] Mean Cell Hemoglobin Concentration 35.1(H) 31.7 - 35.0 g/dL [facility] Platelet 130(L) 145 - 357 x10(3)/mc L [facility] RDW Standard Deviation 41.7 37.0 - 46.0 fL [facility] RDW coefficient of variation 12.5 11.5 - 14.1 % [facility] Mean Platelet Volume 10.2 7.6 - 12.9 fL [facility] NRBC% auto 0.5 % [facility] NRBC Absolute 0.040(H) 0.000 - 0.000 x10(3)/ L [facility] Blood 05/13/2023 1:15 AM EDT 05/13/2023 1:29 AM EDT Narrative Resulting Agency Comment Spec In Lab Lorri TOBAR HEMATOLOGY ORDERABLE S [facility] [place] [address] * (ABNORMAL) Hepatic Function Panel (05/13/2023 1:15 AM EDT) Protein, Total 5.5(L) 6.1 - 8.0 g/dL [facility] Albumin 3.0(L) 3.2 - 5.2 g/dL [facility] Aspartate Aminotransferase 792(H) 0 - 30 unit/L [facility] Alanine Aminotransferase 903(H) 0 - 30 unit/L [facility] Alkaline Phosphatase 85 35 - 105 unit/L [facility] Bilirubin, Total 0.5 0.2 - 1.3 mg/dL [facility] Bilirubin, Direct 0.3 0.0 - 0.3 mg/dL [facility] Blood 05/13/2023 1:15 AM EDT 05/13/2023 1:29 AM EDT Narrative Resulting Agency Comment Spec In Lab Alirio Hudson MD CHEMISTRY ORDERABLE S [facility] [place] [address] * (ABNORMAL) Basic Metabolic Panel (non-fasting) (05/13/2023 1:15 AM EDT) Glucose 107 65 - 199 mg/dL [facility] Comment:Diabetes: >=200 mg/d L plus symptoms Blood Urea Nitrogen 82(H) 8 - 18 mg/dL [facility] Creatinine 3.15(H) 0.70 - 1.20 mg/dL [facility] Comment:result rechecked-NINAJ Sodium 132(L) 135 - 145 mmol/L [facility] Potassium 3.8 3.5 - 5.0 mmol/L [facility] Comment: Please note: ??Patients with WBC >100,000 may have falsely elevated Potassium levels. ??For accurate Potassium quantification in these patients send serum separator tube (gold top) for subsequent determinations. ??Contact the Clinical Chemistry Laboratory if there are any questions. Chloride 95(L) 98 - 107 mmol/L [facility] Carbon Dioxide 20(L) 22 - 31 mmol/L [facility] Anion Gap 17(H) 5 - 15 mmol/L [facility] Calcium 8.3(L) 8.5 - 10.5 mg/dL [facility] Est Glomerular Filtration Rate 16(L) >=60 mL/min/1. 73 m?? [facility] Comment: This patient's estimated GFR [...] Lab Alirio Hudson MD CHEMISTRY ORDERABLE S [facility] [place] [address] * (ABNORMAL) BLOOD GAS 2 ARTERIAL (05/12/2023 3:57 PM EDT) pH, Arterial 7.39 7.35 - 7.45 [facility] PCO2, Arterial 33(L) 35 - 45 mmHg [facility] PO2, Arterial 101 85 - 104 mmHg [facility] Bicarbonate, Arterial 19.5(L) 20.0 - 26.0 mmol/L [facility] Base Excess, Arterial -5.5(L) -3.0 - 3.0 mmol/L [facility] Hgb Blood Gas 9.8(L) 11.7 - 15.5 g/dL [facility] Oxyhemoglobin, Arterial 95.2 94.0 - 97.0 % [facility] Carboxyhemoglob in, Arterial 0.2 % [facility] Comment: Nonsmokers: 0.5-1.5% COHB Smokers: Variable, but usually less than 10% Toxic: 20-30% COHB Lethal: Greater than 60% COHB Methemoglobin, Arterial 0.8 <=1.5 % [facility] Na Whole Blood 129(L) 135 - 145 mmol/L [facility] K Whole Blood 3.8 3.5 - 5.0 mmol/L [facility] Comment: Please note: Patients with WBC >100,000 may have falsely elevated Potassium levels. Contact the Clinical Chemistry Laboratory if there are any questions. ICa Whole Blood 1.05(L) 1.15 - 1.33 mmol/L [facility] Comment: Note: ??Total bilirubin higher than 20 mg/dL may lead to falsely low ionized calcium. CL Whole Blood 96(L) 98 - 107 mmol/L [facility] Gluc Whole Bld 178 65 - 199 mg/dL [facility] Comment:Diabetes: >=200 mg/d L plus symptoms. Lactate WB 1.5 0.5 - 2.2 mmol/L [facility] FIO2 Art 40 % [facility] PF Ratio Art 252 [facility] Blood 05/12/2023 3:57 PM EDT 05/12/2023 3:57 PM EDT Alirio Hudson MD POINT OF CARE TEST ORDERABLES Performing Organization Address [facility] Co de Phone Number [facility] [place] [address] * (ABNORMAL) Coox2 (05/12/2023 2:25 PM EDT) pO2, Coox 37 mmHg [facility] Hgb Blood Gas 9.5(L) 11.7 - 15.5 g/dL [facility] Oxyhemoglobin, Coox 59.9 % [facility] Carboxyhemoglo bin, Coox 0.3 % [facility] Comment: Nonsmokers: 0.5-1.5% COHB Smokers: Variable, but usually less than 10% Toxic: 20-30% COHB Lethal: Greater than 60% COHB Methemoglobin, Coox 0.7 <=1.5 % [facility] Source Coox Mixed Venous [facility] Blood 05/12/2023 2:25 PM EDT 05/12/2023 2:25 PM EDT Alirio Hudson MD POINT OF CARE TEST ORDERABLES Performing Organization Address [facility] Co de Phone Number [facility] [place] [address] * (ABNORMAL) BLOOD GAS 2 ARTERIAL (05/12/2023 2:23 PM EDT) pH, Arterial 7.37 7.35 - 7.45 [facility] PCO2, Arterial 36 35 - 45 mmHg [facility] PO2, Arterial 102 85 - 104 mmHg [facility] Bicarbonate, Arterial 20.4 20.0 - 26.0 mmol/L [facility] Base Excess, Arterial -4.8(L) -3.0 - 3.0 mmol/L [facility] Hgb Blood Gas 12.7 11.7 - 15.5 g/dL [facility] Oxyhemoglobin, Arterial 95.4 94.0 - 97.0 % [facility] Carboxyhemoglob in, Arterial 0.3 % [facility] Comment: Nonsmokers: 0.5-1.5% COHB Smokers: Variable, but usually less than 10% Toxic: 20-30% COHB Lethal: Greater than 60% COHB Methemoglobin, Arterial 0.7 <=1.5 % [facility] Na Whole Blood 129(L) 135 - 145 mmol/L [facility] K Whole Blood 3.7 3.5 - 5.0 mmol/L [facility] Comment: Please note: Patients with WBC >100,000 may have falsely elevated Potassium levels. Contact the Clinical Chemistry Laboratory if there are any questions. ICa Whole Blood 1.05(L) 1.15 - 1.33 mmol/L [facility] Comment: Note: ??Total bilirubin higher than 20 mg/dL may lead to falsely low ionized calcium. CL Whole Blood 95(L) 98 - 107 mmol/L [facility] Gluc Whole Bld 168 65 - 199 mg/dL [facility] Comment:Diabetes: >=200 mg/d L plus symptoms. Lactate WB 1.8 0.5 - 2.2 mmol/L [facility] FIO2 Art 40 % [facility] PF Ratio Art 255 [facility] Blood 05/12/2023 2:23 PM EDT 05/12/2023 2:23 PM EDT Alirio Hudson MD POINT OF CARE TEST ORDERABLES [facility] [place] [address] * (ABNORMAL) Troponin (05/12/2023 2:05 PM EDT) Troponin-T, High Sensitivity 1,022(H) <=14 ng/L [facility] Comment: This patient's troponin T concentration was determined using the Rubné 5th Generation troponin T assay. The 99th [...] troponin value can be found in the [facility] Test Catalog Troponin - [facility] Test Catalog Reference: Fourth [place] Definition of Myocardial Infarction. Journal of the [employer] 2018;72:7449-4907 Blood 05/12/2023 2:05 PM EDT 05/12/2023 2:14 PM EDT Narrative Resulting Agency Comment Spec In Lab Alirio Hudson MD CHEMISTRY ORDERABLE S [facility] [place] [address] * (ABNORMAL) Hemoglobin (05/12/2023 2:05 PM EDT) Hemoglobin 8.5(L) 11.7 - 15.5 g/dL [facility] Blood 05/12/2023 2:05 PM EDT 05/12/2023 2:14 PM EDT Narrative Resulting Agency Comment Spec In Lab Alirio Hudson MD HEMATOLOGY ORDERABL ES Performing Organization Address [facility] Co de Phone Number [facility] [place] [place] [address] * Potassium (05/12/2023 2:05 PM EDT) Potassium 3.9 3.5 - 5.0 mmol/L [facility] Comment: Please note: ??Patients with [...] MD CHEMISTRY ORDERABLE S Performing Organization Address [facility] Co de Phone Number [facility] [place] [address] * (ABNORMAL) BLOOD GAS 2 ARTERIAL (05/12/2023 11:05 AM EDT) pH, Arterial 7.34(L) 7.35 - 7.45 [facility] PCO2, Arterial 42 35 - 45 mmHg [facility] PO2, Arterial 73(L) 85 - 104 mmHg [facility] Bicarbonate, Arterial 22.1 20.0 - 26.0 mmol/L [facility] Base Excess, Arterial -3.6(L) -3.0 - 3.0 mmol/L [facility] Hgb Blood Gas 9.3(L) 11.7 - 15.5 g/dL [facility] Oxyhemoglobin, Arterial 89.3(L) 94.0 - 97.0 % [facility] Carboxyhemoglob in, Arterial 0.2 % [facility] Comment: Nonsmokers: 0.5-1.5% COHB Smokers: Variable, but usually less than 10% Toxic: 20-30% COHB Lethal: Greater than 60% COHB Methemoglobin, Arterial 0.9 <=1.5 % [facility] Na Whole Blood 131(L) 135 - 145 mmol/L [facility] K Whole Blood 3.8 3.5 - 5.0 mmol/L [facility] Comment: Please note: Patients with WBC >100,000 may have falsely elevated Potassium levels. Contact the Clinical Chemistry Laboratory if there are any questions. ICa Whole Blood 1.04(L) 1.15 - 1.33 mmol/L [facility] Comment: Note: ??Total bilirubin higher than 20 mg/dL may lead to falsely low ionized calcium. CL Whole Blood 96(L) 98 - 107 mmol/L [facility] Gluc Whole Bld 152 65 - 199 mg/dL [facility] Comment:Diabetes: >=200 mg/d L plus symptoms. Lactate WB 2.8(H) 0.5 - 2.2 mmol/L [facility] FIO2 Art 40 % [facility] PF Ratio Art 182 [facility] Blood 05/12/2023 11:0 5 AM EDT 05/12/2023 11:05 AM EDT Alirio Hudson MD POINT OF CARE TEST ORDERABLES Performing Organization Address City/State/[facility] Co de Phone Number [facility] [place] [address] * (ABNORMAL) BLOOD GAS 2 ARTERIAL (05/12/2023 10:14 AM EDT) pH, Arterial 7.18(Criti gabrielle) 7.35 - 7.45 [facility] Comment:Noted by weapons system instrument mechanic. PCO2, Arterial 45 35 - 45 mmHg [facility] PO2, Arterial 186(H) 85 - 104 mmHg [facility] Bicarbonate, Arterial 16.2(L) 20.0 - 26.0 mmol/L [facility] Base Excess, Arterial -12.2(L) -3.0 - 3.0 mmol/L [facility] Hgb Blood Gas 10.0(L) 11.7 - 15.5 g/dL [facility] Oxyhemoglobin, Arterial 97.0 94.0 - 97.0 % [facility] Carboxyhemoglob in, Arterial 0.2 % [facility] Comment: Nonsmokers: 0.5-1.5% COHB Smokers: Variable, but usually less than 10% Toxic: 20-30% COHB Lethal: Greater than 60% COHB Methemoglobin, Arterial 0.9 <=1.5 % [facility] Na Whole Blood 129(L) 135 - 145 mmol/L [facility] K Whole Blood 3.6 3.5 - 5.0 mmol/L [facility] Comment: Please note: Patients with WBC >100,000 may have falsely elevated Potassium levels. Contact the Clinical Chemistry Laboratory if there are any questions. ICa Whole Blood 1.10(L) 1.15 - 1.33 mmol/L [facility] Comment: Note: ??Total bilirubin higher than 20 mg/dL may lead to falsely low ionized calcium. CL Whole Blood 97(L) 98 - 107 mmol/L [facility] Gluc Whole Bld 161 65 - 199 mg/dL [facility] Comment:Diabetes: >=200 mg/d L plus symptoms. Lactate WB 3.3(H) 0.5 - 2.2 mmol/L [facility] FIO2 Art 100 % [facility] PF Ratio Art 186 [facility] Blood 05/12/2023 10:1 4 AM EDT 05/12/2023 10:14 AM EDT Alirio Hudson MD POINT OF CARE TEST ORDERABLES Performing Organization Address City/State/[facility] Co de Phone Number [facility] [place] [address] * EKG 12 Lead (05/12/2023 10:10 AM EDT) Ventricular rate 116 BPM MUSE SYSTEM Atrial Rate 116 BPM MUSE SYSTEM P-R Interval 158 ms MUSE SYSTEM QRS Duration 114 ms MUSE SYSTEM Q-T Interval 348 ms MUSE SYSTEM QTC Calculated (Bezet) 483 ms MUSE SYSTEM Calculated P [place] 37 degrees MUSE SYSTEM Calculated R [place] 31 degrees MUSE SYSTEM Calculated T [place] -138 degrees MUSE SYSTEM INTERPRETATION Sinus tachycardia [...] interpretation Confirmed by fellow MD Anuja, Jim ([id number]) on 05/12/2023 1:04:20 PM Confirmed by MD Mono, Eleni ([id number]) on 05/12/2023 9:28:34 PM MUSE SYSTEM 05/12/2023 [...] questions please contact the health clinical care coordinator that requested your imaging first. ? Electronically signed by: Chyna Johnson MD, [facility] ??([phone]), at 05/12/2023 10:08 AM Narrative 05/12/2023 10:08 AM EDT EXAMINATION: XR CHEST ONE VIEW CLINICAL HISTORY: Post TAVR TECHNIQUE: 1 view of the chest COMPARISON: Chest radiograph from earlier today FINDINGS: Interval placement of endotracheal tube with tip terminating 2 cm above the shira. Interval placement of enteric tube projecting along the expected course of the esophagus and outside the hmuvo-jo-afxz. Interval retraction of right IJ approach pulmonary [...] expected course ofthe esophagus and outside the jafbc-vu-grro. Interval retraction of right IJ approach pulmonary [...] have questions please contactthe health clinical care coordinator that requested your imaging first. [...] 1955 ? Height: 154 cm ? Account: [id number] Age: 67 yrs ? Weight: 75 kg Gender: Female ?BSA: 1.7 m2 Ordering Physician: RADHA HOLLINS Referring Physician: RADHA HOLLINS Performed By: Dilma Bee RDCS Reason For Study: Guidance for TAVR procedure Exam Location: [facility]. Interpretation Summary PRE TAVR: There [...] mL/m2. POST TAVR: Normal function of the wofbg-qw-wvjfl prosthesis. See below for hemodynamic parameters. Slight improvement in left and right ventricular systolic function. LVEF now 20-25%. No pericardial effusion. See report for additional findings. Procedure Limited - 21667. Doppler - 65865. Color Doppler - 07739. Left Ventricle Left ventricle is of normal [...] 307:33 AMBP: 96/63 mmHg Patient Location: [address] : 1955 Height: 154 cm Account: [id number] Age: 67 yrs Weight: 75 kg Gender: Female BSA: 1.7 m2 Ordering Physician: RADHA HOLLINS Referring Physician: RADHA HOLLINS Performed By: Dilma Bee RDCS Reason For Study: Guidance for TAVR procedure Exam Location: [facility]. Interpretation Summary PRE TAVR: There [...] 28mL/m2. POST TAVR: Normal function of the nuzja-qm-ygxvl prosthesis. See belowfor hemodynamic parameters. Slight improvement in left and right ventricularsystolic function. LVEF now 20-25%. No pericardial effusion. See report for additional findings. Procedure Limited - 06864. Doppler - 44854. Color Doppler - 36299. Left Ventricle Left ventricle is of normal [...] Modality Other Narrative 05/12/2023 2:37 PM EDT ?[facility] ? Cardiac Catheterization/Intervention Report ? Patient Name: Kirstie, Purnima M. ? Procedure Date: 05/12/2023 ? A #: [id number] ? Primary Physician: Antelmo Sharma ? Case #: [id number] ? File Name: [id number] ? Catheterization Order Number: [id number] ? [facility] ? Final Report [place], [place] ? Patient Name: ? Purnima M. Kirstie ? ID#: ?[id number] ? : ?1955 ? Procedure Date: ? May 12, 2023 ? Case #: ? [id number] ? Room: ? 6 ? Case Physicians: ?Antelmo Sharma M.D. ?Start: ?08:03 ?Alirio Hudson M.D. ?Admission: ??05/08/2023 ?Lynda Mcgowan M.D. ? Discharge: ??05/22/2023 ?Fellow: ? Kristied Bhavna Tejeda. ? Referring Physician: ??Mario Alberto Chin M.D. ? Procedures: ?* Coronary Angiography ?* Left Heart Catheterization ?* Coronary Stent Insertion ?* Transcatheter Aortic Valve Replacement ?* Vascular Closure Device Deployment ?* Temporary Pacemaker Insertion In Environmental Health And Safety Manager ?* Endotracheal Intubation By Non-Cath Physician [...] was designated as ASA Class IV. The [facility] clinical ?frailty scale is 4: Vulnerable. ? [...] left ? main. This was a de sheriwn lesion. According to the ACC/AHA ? classification [...] guide. ??A premounted 4.00 x 30 mm Bailey Geary (MINNA) was ? deployed with a maximum [...] calculated STS risk score was 30.1%. A pqzec-cw-suobm ?procedure was performed on the pre-existing bioprosthetic stented ?prosthesis. The priority of the izcbw-pf-fjliz procedure was Elective. ?The procedure was performed [...] Lai 3 Ultra RESILIA 23 mm THV (s/l=[id number]) transcatheter ?valve was inserted using standard technique. 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 ?Recommended anti-platelet/anti-thrombotic regimen: ?Continue aspirin 81 mg daily for indefinitely. ?These recommendations are made at the time of the intervention. Patient ?and provider preferences or a changing clinical situation may require ?modification of this regimen. Consult [facility] [place] for ?questions. ? Conclusions: ?* [...] regimen. ? Comments: ?Successful right transfemoral TAVR Iwcns-td-Ntmlz with a 23 mm Lai 3 ?THV. 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 Dr. Alirio Hudson M.D. 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 Dr. Lynda Mcgowan M.D. performed the ABG, ?anesthesia and intubation-non cath physician. ? Antelmo Sharma M.D. ? Electronically Signed by: Antelmo Sharma M.D. ? Report Finalized: 05/12/2023 ??14:31 ? Report Last Ammended: 07/01/2023 ??11:30 ? Procedure Note Antelmo Sharma MD - 07/01/2023 [facility] Cardiac Catheterization/Intervention Report Patient Name: Purnima Thacker Procedure Date: 05/12/2023 A #: [id number] Primary Physician: Antelmo Sharma Case #: [id number] File Name: [id number] Catheterization Order Number: [id number] [facility] FinalReport [place], [place] Patient Name: Purnima Thacker ID#:[id number] :1955 Procedure Date: May 12, 2023 Case #: [id number] Room: 6 Case Physicians: Antelmo Sharma M.D. Start: 08:03 Alirio Hudson M.D. Admission:05/08/2023 Lynda Mcgowan M.D. Discharge:05/22/2023 Fellow: Rebekah Tejeda M.D. Referring Physician: Mario Alberto Chin M.D. Procedures: * Coronary Angiography * Left Heart Catheterization * Coronary Stent Insertion * Transcatheter Aortic Valve Replacement * Vascular Closure Device Deployment * Temporary Pacemaker Insertion In Environmental Health And Safety Manager * Endotracheal Intubation By Non-Cath Physician [...] A premounted 4.00 x 30 mm Nils Geary (MINNA) was deployed with a maximum inflation [...] calculated STS risk score was 30.1%. A uwufy-ed-jphwb procedure was performed on the pre-existing bioprosthetic stented prosthesis. The priority of the jrqhr-qi-ctesm procedure wasElective. The procedure was performed under Moderate sedation performed byLynda Mcgowan M.D. (see anesthesia report for additional details). Alirio Hudson M.D. participated in the case (see Cardiac Surgery reportfor additional details). The TAVR sheath was a 14 Fr Corona eSheath Introducer and theaccess site was femoral. Rapid ventricular pacing was performed. An Corona Lai 3 Ultra RESILIA 23 mm THV (s/d=[id number])transcatheter valve was inserted using standard technique. The [...] to nor was it given inthe laborer dairy farm. Recommended anti-platelet/anti-thrombotic regimen: Continue aspirin 81 mg daily for indefinitely. These recommendations are made at the time of the intervention.Patient and provider preferences or a changing clinical situation mayrequire modification of this regimen. Consult [facility] [place]iology[facility] questions. Conclusions: * Nonobstructive disease [...] this regimen. Comments: Successful right transfemoral TAVR Epwfm-yy-Grend with a 23 mmSapien 3 THV. We [...] access site angiography, temporary pacemaker in laborer dairy [employer], intubation-non cath physician,vascular closure device, transthoracic echo and TAVR. Dr. Alirio Hudson M.D. performed the left heart catheterization, access site angiography, temporary pacemaker in laborer dairy [employer], vascular closure device,transthoracic echo , TAVR [...] pH, POC 7.20(Crit ical) 7.35 - 7.45 [facility] Comment:Critical value OK, C C Lab. pCO2, POC 42 35 - 45 mmHg [facility] pO2, POC 260(H) 85 - 104 mmHg [facility] Base Excess, POC -11.0(L) -3.0 - 3.0 mmol/L [facility] Bicarbonate, POC 16.7(L) 20.0 - 26.0 mmol/L [facility] Sodium, POC 129(L) 135 - 145 mmol/L [facility] POC Potassium 3.8 3.5 - 5.0 mmol/L [facility] Ionized Calcium, POC 1.12(L) 1.15 - 1.33 mmol/L [facility] POC Hematocrit 23.0(L) 34.0 - 45.0 % [facility] POC Calc Hgb 7.8(L) 11.2 - 15.7 g/dL [facility] Comment:The calculation of h emoglobin from hematocrit assumes a normal MCHC. POC Bgas Loc CC Lab [facility] Blood 05/12/2023 8:50 AM EDT 05/13/2023 12:00 PM EDT Alirio Hudson MD CHEMISTRY ORDERABLE S [facility] [place] [address] * (ABNORMAL) Point of Care Blood Gas Historical (05/12/2023 8:10 AM EDT) pH, POC 7.27(Crit ical) 7.35 - 7.45 [facility] Comment:Critical value OK, C C Lab. pCO2, POC 37 35 - 45 mmHg [facility] pO2, POC 29(Critic al) 85 - 104 mmHg [facility] Comment:Critical value OK, C C Lab. Base Excess, POC -10.0(L) -3.0 - 3.0 mmol/L [facility] Bicarbonate, POC 16.7(L) 20.0 - 26.0 mmol/L [facility] Sodium, POC 123(L) 135 - 145 mmol/L [facility] POC Potassium 4.0 3.5 - 5.0 mmol/L [facility] Ionized Calcium, POC 1.12(L) 1.15 - 1.33 mmol/L [facility] POC Hematocrit 27.0(L) 34.0 - 45.0 % [facility] POC Calc Hgb 9.2(L) 11.2 - 15.7 g/dL [facility] Comment:The calculation of h emoglobin from hematocrit assumes a normal MCHC. POC Bgas Loc CC Lab [facility] Blood 05/12/2023 8:10 AM EDT 05/13/2023 12:00 PM EDT Alirio Hudson MD CHEMISTRY ORDERABLE S Performing Organization Address City/[facility]/ZIP Co de Phone Number [facility] [place] [address] * (ABNORMAL) Lactate, whole blood, send to lab ([facility] (05/12/2023 7:00 AM EDT) Lactate WB 2.4(H) 0.5 - 2.2 mmol/L [facility] Blood 05/12/2023 7:00 AM EDT 05/12/2023 7:09 AM EDT Narrative Resulting Agency Comment Spec In Lab Radha Hollins MD CHEMISTRY ORDERABL ES Performing Organization Address [facility] Co de Phone Number [facility] [place] [address] * (ABNORMAL) Comprehensive metabolic panel (non-fasting) (05/12/2023 6:00 AM EDT) Glucose 167 65 - 199 mg/dL [facility] Comment:Diabetes: >=200 mg/d L plus symptoms Blood Urea Nitrogen 67(H) 8 - 18 mg/dL [facility] Creatinine 2.01(H) 0.70 - 1.20 mg/dL [facility] Sodium 131(L) 135 - 145 mmol/L [facility] Potassium 4.3 3.5 - 5.0 mmol/L [facility] Comment: Please note: ??Patients with WBC >100,000 may have falsely elevated Potassium levels. ??For accurate Potassium quantification in these patients send serum separator tube (gold top) for subsequent determinations. ??Contact the Clinical Chemistry Laboratory if there are any questions. Chloride 97(L) 98 - 107 mmol/L [facility] Carbon Dioxide 14(L) 22 - 31 mmol/L [facility] Anion Gap 20(H) 5 - 15 mmol/L [facility] Calcium 8.6 8.5 - 10.5 mg/dL [facility] Protein, Total 6.3 6.1 - 8.0 g/dL [facility] Albumin 3.5 3.2 - 5.2 g/dL [facility] Aspartate Aminotransferase 1,435(H) 0 - 30 unit/L [facility] Alanine Aminotransferase 1,174(H) 0 - 30 unit/L [facility] Alkaline Phosphatase 100 35 - 105 unit/L [facility] Bilirubin, Total 0.9 0.2 - 1.3 mg/dL [facility] Est Glomerular Filtration Rate 27(L) >=60 mL/min/1. 73 m?? [facility] Comment: This patient's estimated GFR [...] Lab Radha Hollins MD CHEMISTRY ORDERABL ES [facility] [place] [place] [address] * (ABNORMAL) Coox2 (05/12/2023 5:08 AM EDT) pO2, Coox 24 mmHg [facility] Hgb Blood Gas 10.4(L) 11.7 - 15.5 g/dL [facility] Oxyhemoglobin, Coox 30.7 % [facility] Carboxyhemoglo bin, Coox 0.3 % [facility] Comment: Nonsmokers: 0.5-1.5% COHB Smokers: Variable, but usually less than 10% Toxic: 20-30% COHB Lethal: Greater than 60% COHB Methemoglobin, Coox 0.8 <=1.5 % [facility] Source Coox Mixed Venous [facility] Blood 05/12/2023 5:08 AM EDT 05/12/2023 5:08 AM EDT Radha Hollins MD POINT OF CARE TEST ORDERABLES Performing Organization Address City/[facility] Co de Phone Number [facility] [place] [place] [address] * (ABNORMAL) Coox2 (05/12/2023 3:21 AM EDT) pO2, Coox 25 mmHg [facility] Hgb Blood Gas 10.8(L) 11.7 - 15.5 g/dL [facility] Oxyhemoglobin, Coox 32.7 % [facility] Carboxyhemoglo bin, Coox 0.3 % [facility] Comment: Nonsmokers: 0.5-1.5% COHB Smokers: Variable, but usually less than 10% Toxic: 20-30% COHB Lethal: Greater than 60% COHB Methemoglobin, Coox 0.7 <=1.5 % [facility] Source Coox Mixed Venous [facility] Blood 05/12/2023 3:21 AM EDT 05/12/2023 3:21 AM EDT Radha Hollins MD POINT OF CARE TEST ORDERABLES Performing Organization Address [facility] Co de Phone Number [facility] [place] [address] * (ABNORMAL) BLOOD GAS 2 ARTERIAL (05/12/2023 3:18 AM EDT) pH, Arterial 7.34(L) 7.35 - 7.45 [facility] PCO2, Arterial 30(L) 35 - 45 mmHg [facility] PO2, Arterial 72(L) 85 - 104 mmHg [facility] Bicarbonate, Arterial 16.0(L) 20.0 - 26.0 mmol/L [facility] Base Excess, Arterial -9.8(L) -3.0 - 3.0 mmol/L [facility] Hgb Blood Gas 11.0(L) 11.7 - 15.5 g/dL [facility] Oxyhemoglobin, Arterial 89.8(L) 94.0 - 97.0 % [facility] Carboxyhemoglob in, Arterial 0.3 % [facility] Comment: Nonsmokers: 0.5-1.5% COHB Smokers: Variable, but usually less than 10% Toxic: 20-30% COHB Lethal: Greater than 60% COHB Methemoglobin, Arterial 0.7 <=1.5 % [facility] Na Whole Blood 131(L) 135 - 145 mmol/L [facility] K Whole Blood 4.2 3.5 - 5.0 mmol/L [facility] Comment: Please note: Patients with WBC >100,000 may have falsely elevated Potassium levels. Contact the Clinical Chemistry Laboratory if there are any questions. ICa Whole Blood 1.12(L) 1.15 - 1.33 mmol/L [facility] Comment: Note: ??Total bilirubin higher than 20 mg/dL may lead to falsely low ionized calcium. CL Whole Blood 100 98 - 107 mmol/L [facility] Gluc Whole Bld 160 65 - 199 mg/dL [facility] Comment:Diabetes: >=200 mg/d L plus symptoms. Lactate WB 2.7(H) 0.5 - 2.2 mmol/L [facility] Flow Art 5.0 LPM [facility] Blood 05/12/2023 3:18 AM EDT 05/12/2023 3:18 AM EDT Radha Hollins MD POINT OF CARE TEST ORDERABLES [facility] [place] [address] * (ABNORMAL) Coox2 (05/12/2023 1:14 AM EDT) pO2, Coox 28 mmHg [facility] Hgb Blood Gas 10.9(L) 11.7 - 15.5 g/dL [facility] Oxyhemoglobin, Coox 37.3 % [facility] Carboxyhemoglo bin, Coox 0.3 % [facility] Comment: Nonsmokers: 0.5-1.5% COHB Smokers: Variable, but usually less than 10% Toxic: 20-30% COHB Lethal: Greater than 60% COHB Methemoglobin, Coox 0.5 <=1.5 % [facility] Source Coox Mixed Venous [facility] Blood 05/12/2023 1:14 AM EDT 05/12/2023 1:14 AM EDT Radha Hollins MD POINT OF CARE TEST ORDERABLES [facility] [place] [address] * (ABNORMAL) BLOOD GAS 2 ARTERIAL (05/12/2023 1:06 AM EDT) pH, Arterial 7.34(L) 7.35 - 7.45 [facility] PCO2, Arterial 30(L) 35 - 45 mmHg [facility] PO2, Arterial 81(L) 85 - 104 mmHg [facility] Bicarbonate, Arterial 15.7(L) 20.0 - 26.0 mmol/L [facility] Base Excess, Arterial -10.1(L) -3.0 - 3.0 mmol/L [facility] Hgb Blood Gas 11.0(L) 11.7 - 15.5 g/dL [facility] Oxyhemoglobin, Arterial 92.3(L) 94.0 - 97.0 % [facility] Carboxyhemoglob in, Arterial 0.2 % [facility] Comment: Nonsmokers: 0.5-1.5% COHB Smokers: Variable, but usually less than 10% Toxic: 20-30% COHB Lethal: Greater than 60% COHB Methemoglobin, Arterial 0.6 <=1.5 % [facility] Na Whole Blood 131(L) 135 - 145 mmol/L [facility] K Whole Blood 4.2 3.5 - 5.0 mmol/L [facility] Comment: Please note: Patients with WBC >100,000 may have falsely elevated Potassium levels. Contact the Clinical Chemistry Laboratory if there are any questions. ICa Whole Blood 1.13(L) 1.15 - 1.33 mmol/L [facility] Comment: Note: ??Total bilirubin higher than 20 mg/dL may lead to falsely low ionized calcium. CL Whole Blood 99 98 - 107 mmol/L [facility] Gluc Whole Bld 132 65 - 199 mg/dL [facility] Comment:Diabetes: >=200 mg/d L plus symptoms. Lactate WB 2.7(H) 0.5 - 2.2 mmol/L [facility] Flow Art 5.0 LPM [facility] Blood 05/12/2023 1:06 AM EDT 05/12/2023 1:06 AM EDT Radha Hollins MD POINT OF CARE TEST ORDERABLES [facility] [place] [address] * (ABNORMAL) Differential, Automated (05/12/2023 1:05 AM EDT) Neutrophil % 83.3 % [facility] Neutrophil Absolute 7.49(H) 1.70 - 6.10 x10(3)/mc L [facility] Lymph % 7.1 % [facility] Lymphocytes Abs 0.6(L) 0.9 - 3.2 x10(3)/mc L [facility] Monocyte % 8.9 % [facility] Monocyte Abs 0.8 0.3 - 0.9 x10(3)/mc L [facility] Eos % 0.0 % [facility] Eosinophils Abs 0.0 0.0 - 0.4 x10(3)/mc L [facility] Basophil % 0.1 % [facility] Baso Absolute 0.0 0.0 - 0.1 x10(3)/mc L [facility] Immature Gran % 0.60 % [facility] Comment: Immature granulocytes(IG's)percentage and absolute count will include metamyelocytes, myelocytes, and promyelocytes. Blood smears from CBCs yielding IG's will be scanned manually for concordance. If this scan disagrees with the automated IG or if promyelocytes are noted, a manual differential will be performed. Immature Gran Absolute 0.05(H) 0.00 - 0.04 x10(3)/mc L [facility] Blood 05/12/2023 1:05 AM EDT 05/12/2023 1:15 AM EDT Narrative Resulting Agency Comment Spec In Lab Gianni Fletcher MD HEMATOLOGY ORDERABLE S [facility] [place] [address] * (ABNORMAL) Hemogram (05/12/2023 1:05 AM EDT) White Blood Cell 9.0 4.0 - 9.5 x10(3)/mc L [facility] Red Blood Cell 3.01(L) 4.00 - 5.21 x10(6)/mc L [facility] Hemoglobin 9.8(L) 11.7 - 15.5 g/dL [facility] Hematocrit 28.7(L) 35.7 - 45.8 % [facility] Mean Cell Volume 95.3(H) 82.6 - 94.4 fL [facility] Mean Cell Hemoglobin 32.6(H) 27.1 - 32.0 pg [facility] Mean Cell Hemoglobin Concentration 34.1 31.7 - 35.0 g/dL [facility] Platelet 186 145 - 357 x10(3)/mc L [facility] RDW Standard Deviation 43.7 37.0 - 46.0 fL [facility] RDW coefficient of variation 12.7 11.5 - 14.1 % [facility] Mean Platelet Volume 10.3 7.6 - 12.9 fL [facility] NRBC% auto 0.0 % [facility] NRBC Absolute 0.000 0.000 - 0.000 x10(3)/mc L [facility] Blood 05/12/2023 1:05 AM EDT 05/12/2023 1:15 AM EDT Narrative Resulting Agency Comment Spec In Lab Gianni Fletcher MD HEMATOLOGY ORDERABLE S [facility] [place] [address] * (ABNORMAL) Comprehensive metabolic panel (non-fasting) (05/12/2023 1:05 AM EDT) Glucose 141 65 - 199 mg/dL [facility] Comment:Diabetes: >=200 mg/d L plus symptoms Blood Urea Nitrogen 63(H) 8 - 18 mg/dL [facility] Creatinine 1.86(H) 0.70 - 1.20 mg/dL [facility] Sodium 131(L) 135 - 145 mmol/L [facility] Potassium 4.4 3.5 - 5.0 mmol/L [facility] Comment: Please note: ??Patients with WBC >100,000 may have falsely elevated Potassium levels. ??For accurate Potassium quantification in these patients send serum separator tube (gold top) for subsequent determinations. ??Contact the Clinical Chemistry Laboratory if there are any questions. Chloride 96(L) 98 - 107 mmol/L [facility] Carbon Dioxide 14(L) 22 - 31 mmol/L [facility] Anion Gap 21(H) 5 - 15 mmol/L [facility] Calcium 9.0 8.5 - 10.5 mg/dL [facility] Protein, Total 6.6 6.1 - 8.0 g/dL [facility] Albumin 3.9 3.2 - 5.2 g/dL [facility] Aspartate Aminotransferase 1,227(H) 0 - 30 unit/L [facility] Alanine Aminotransferase 1,097(H) 0 - 30 unit/L [facility] Alkaline Phosphatase 108(H) 35 - 105 unit/L [facility] Bilirubin, Total 1.0 0.2 - 1.3 mg/dL [facility] Est Glomerular Filtration Rate 29(L) >=60 mL/min/1. 73 m?? [facility] Comment: This patient's estimated GFR [...] Lab Radha Hollins MD CHEMISTRY ORDERABL ES [facility] [place] [address] * XR Chest One View (05/12/2023 1:00 [...] questions please contact the health clinical care coordinator that requested your imaging first. [...] have questions please contactthe health clinical care coordinator that requested your imaging first. Radha Hollins MD IMG DX ORDERABLES * (ABNORMAL) Coox2 (05/12/2023 12:30 AM EDT) pO2, Coox 22 mmHg [facility] Hgb Blood Gas 10.9(L) 11.7 - 15.5 g/dL [facility] LABORATORY Oxyhemoglobin, Coox 25.1 % [facility] Carboxyhemoglo bin, Coox 0.3 % [facility] Comment: Nonsmokers: 0.5-1.5% COHB Smokers: Variable, but usually less than 10% Toxic: 20-30% COHB Lethal: Greater than 60% COHB Methemoglobin, Coox 1.4 <=1.5 % [facility] Source Coox Mixed Venous [facility] Blood 05/12/2023 12:3 0 AM EDT 05/12/2023 12:30 AM EDT Radha Hollins MD POINT OF CARE TEST ORDERABLES [facility] [address] [facility] [place] [address] * XR Chest One View (05/11/2023 11:45 [...] questions please contact the health clinical care coordinator that requested your imaging first. [...] have questions please contactthe health clinical care coordinator that requested your imaging first. Radha Hollins MD IMG DX ORDERABLES * (ABNORMAL) Lactate, whole blood, [place] to lab [place] (05/11/2023 7:40 PM EDT) Lactate WB 4.8(Critic al) 0.5 - 2.2 mmol/L [facility] Comment:Called by: [facility], Read back by: Magdalena Baires, Date/Time:05/11/23 19:54. Blood 05/11/2023 7:40 PM EDT 05/11/2023 7:49 PM EDT Narrative Resulting Agency Comment Spec In Lab Radha Hollins MD CHEMISTRY ORDERABL ES Performing Organization Address [facility]/ZIP Co de Phone Number [facility] [place] [address] * Urine culture (05/11/2023 7:22 PM EDT) Pathologist [facility] Urine Culture 50,000-99,000 cfu/ml Normal mucosal herman Susceptibilit y testing not routinely performed for Coagulase Negative Staphylococcu s species and other Gram Positive organisms from urine. [facility] Clean Catch Urine 05/11/2023 7:22 PM EDT 05/11/2023 8:50 PM EDT Narrative Resulting Agency Comment Spec In Lab Brody Dale Eusebio OSBORN MICROBIOLOGY - GENE RAL ORDERABLES Performing Organization Address [facility] Co de Phone Number [facility] [place] [address] * (ABNORMAL) Urinalysis Microscopic Exam (05/11/2023 7:22 PM EDT) Pathologist [facility] RBC, Urine 2 0 - 4 /HPF [facility] WBC, Urine >100(H) 0 - 5 /HPF [facility] Bacteria, Urine Occasional (A) None /HPF [facility] Squamous Epithelial Cells Raw Data, Urine 5(H) <=4 /HPF [facility] Hyaline Casts, Urine 3(H) 0 - 2 /LPF [facility] Clean Catch Urine 05/11/2023 7:22 PM EDT 05/11/2023 7:31 PM EDT Narrative Resulting Agency Comment Spec In Lab Brody Elvia Eusebio LEMAN URINE ORDERABLES Performing Organization Address [facility]/ZIP Co de Phone Number [facility] [place] [address] * (ABNORMAL) Urinalysis with reflex Culture (05/11/2023 7:22 PM EDT) Glucose, Urine Dipstick Negative Negative mg/dL [facility] Protein, Urine Dipstick Trace(A) Negative mg/dL [facility] Bilirubin, Urine Dipstick Negative Negative mg/dL [facility] Comment: Clinical correlation required for positive Urine Bilirubin results as false positive may occur with some drugs and drug related products. If a false positive is suspected a serum total bilirubin should be considered if clinically indicated. Urobilinogen, Urine Dipstick Normal Normal mg/dL [facility] pH, Urn (dipstick) 5.0 5.0 - 8.0 [facility] Blood, Urine Dipstick Trace(A) Negative mg/dL [facility] Ketone, Urine Dipstick Negative Negative mg/dL [facility] Nitrite, Urine Dipstick Negative Negative [facility] Leukocytes, Urine Dipstick Moderate(A) Negative mcL [facility] Appearance, Urine Dipstick Cloudy(A) Clear [facility] Specific [employer] Urine Automated >=1.030(A) 1.005 - 1.030 [facility] Color, Urine Dipstick Yellow Yellow [facility] Reflex to Culture Yes [facility] Clean Catch Urine 05/11/2023 7:22 PM EDT 05/11/2023 7:31 PM EDT Narrative Resulting Agency Comment Spec In Lab Brody Kaplan APRN URINE ORDERABLES Performing Organization Address [facility]/ZIP Co de Phone Number [facility] [place] [address] * (ABNORMAL) pro-Brain Natriuretic Peptide (05/11/2023 7:11 PM EDT) NT-proBNP >35,000(H) <=124 pg/mL [facility] Blood 05/11/2023 7:11 PM EDT 05/11/2023 7:26 PM EDT Narrative Resulting Agency Comment Spec In Lab Radha Hollins MD CHEMISTRY ORDERABL ES Performing Organization Address City/[facility]/ZIP Co de Phone Number [facility] [place] [address] * (ABNORMAL) Lactate, whole blood, send to lab ([facility] (05/11/2023 2:47 PM EDT) Lactate WB 2.9(H) 0.5 - 2.2 mmol/L [facility] Blood 05/11/2023 2:47 PM EDT 05/11/2023 2:53 PM EDT Narrative Resulting Agency Comment Spec In Lab Juan Luis Gonzalez MD CHEMISTRY ORDERABLES [facility] [place] [address] * (ABNORMAL) CT Angiogram Abdomen & Pelvis [...] questions please contact the health clinical care coordinator that requested your imaging first. [...] questions please contact the health clinical care coordinator that requested your imaging first. ? Electronically signed by: Cullen Narayanan MD, [facility] ([phone]), at 05/11/2023 4:37 PM Narrative 05/11/2023 4:37 [...] 610 mm2 Circumference: 88 mm Calcification: Mild Fueyszc-ts-jytcxjqk height: Left: 6.2 mm Right: 5.8 mm THORACIC AORTA Description: Normal course and caliber. ??Mild diffuse atherosclerotic changes. No acute aortopathy noted. [employer] dimensions: Aortic root: 27.6 mm Max ascending aorta: 30.5 mm x 27.7 mm Suggested fluoroscopic angulation based on line extending through the nadirs of the three sinuses of Valsalva, set equidistant: ?? LITHUANIAN ??9 degrees; cranial 7 degrees MITRAL: Mitral [...] 610 mm2 Circumference: 88 mm Calcification: Mild Danpuhe-qy-jjsvttty height: Left: 6.2 mm Right: 5.8 mm THORACIC AORTA Description: Normal course and caliber. Mild diffuse atheroscleroticchanges. No acute aortopathy noted. [employer] dimensions: Aortic root: 27.6 mm Max ascending aorta: 30.5 mm x 27.7 mm Suggested fluoroscopic angulation based on line extending through thenadirs of the three sinuses of Valsalva, set equidistant: LITHUANIAN 9 degrees; cranial 7 degrees MITRAL: Mitral [...] have questions please contactthe health clinical care coordinator that requested your imaging first. Electronically signed by: Cullen Narayanan MD, [facility]([phone]), at 05/11/2023 4:37 PM Antelmo Sharma MD IMG CT ORDERABLES * (ABNORMAL) Lactate, whole blood, send to lab ([facility] (05/11/2023 9:29 AM EDT) Lactate WB 3.1(H) 0.5 - 2.2 mmol/L [facility] Blood 05/11/2023 9:29 AM EDT 05/11/2023 9:38 AM EDT Narrative Resulting Agency Comment Spec In Lab Juan Luis Gonzalez MD CHEMISTRY ORDERABLES [facility] [place] [address] * (ABNORMAL) Differential, Automated (05/11/2023 4:42 AM EDT) Neutrophil % 78.1 % [facility] Neutrophil Absolute 5.46 1.70 - 6.10 x10(3)/mc L [facility] Lymph % 10.6 % [facility] Lymphocytes Abs 0.7(L) 0.9 - 3.2 x10(3)/mc L [facility] Monocyte % 9.6 % [facility] Monocyte Abs 0.7 0.3 - 0.9 x10(3)/mc L [facility] Eos % 0.0 % [facility] Eosinophils Abs 0.0 0.0 - 0.4 x10(3)/mc L [facility] Basophil % 0.4 % [facility] Baso Absolute 0.0 0.0 - 0.1 x10(3)/mc L [facility] Immature Gran % 1.30 % [facility] Comment: Immature granulocytes(IG's)percentage and absolute count will include metamyelocytes, myelocytes, and promyelocytes. Blood smears from CBCs yielding IG's will be scanned manually for concordance. If this scan disagrees with the automated IG or if promyelocytes are noted, a manual differential will be performed. Immature Gran Absolute 0.09(H) 0.00 - 0.04 x10(3)/mc L [facility] Blood 05/11/2023 4:42 AM EDT 05/11/2023 4:49 AM EDT Narrative Resulting Agency Comment Spec In Lab Klaudia Reid MD HEMATOLOGY OR DERABLES Performing Organization Address City/[facility] Co de Phone Number [facility] [place] [address] * (ABNORMAL) Hemogram (05/11/2023 4:42 AM EDT) White Blood Cell 7.0 4.0 - 9.5 x10(3)/mc L [facility] Red Blood Cell 3.44(L) 4.00 - 5.21 x10(6)/[facility] Hemoglobin 11.1(L) 11.7 - 15.5 g/dL [facility] Hematocrit 32.7(L) 35.7 - 45.8 % [facility] Mean Cell Volume 95.1(H) 82.6 - 94.4 fL [facility] Mean Cell Hemoglobin 32.3(H) 27.1 - 32.0 pg [facility] Mean Cell Hemoglobin Concentration 33.9 31.7 - 35.0 g/dL [facility] Platelet 165 145 - 357 x10(3)/mc L [facility] RDW Standard Deviation 43.1 37.0 - 46.0 fL [facility] RDW coefficient of variation 12.7 11.5 - 14.1 % [facility] Mean Platelet Volume 10.1 7.6 - 12.9 fL [facility] NRBC% auto 0.0 % [facility] NRBC Absolute 0.000 0.000 - 0.000 x10(3)/ L [facility] Blood 05/11/2023 4:42 AM EDT 05/11/2023 4:49 AM EDT Narrative Resulting Agency Comment Spec In Lab Klaudia Reid MD HEMATOLOGY OR DERABLES Performing Organization Address [facility] Co de Phone Number [facility] [place] [address] * Heparin (unfractionated) Level (05/11/2023 4:42 AM EDT) UF Heparin 0.46 IU/mL [facility] Comment: Heparin (anti-Xa) [...] MD HEMATOLOGY ORDERAB LES Performing Organization Address [facility] Co de Phone Number [facility] [place] [address] * (ABNORMAL) Comprehensive metabolic panel (non-fasting) (05/11/2023 4:42 AM EDT) Glucose 143 65 - 199 mg/dL [facility] Comment:Diabetes: >=200 mg/d L plus symptoms Blood Urea Nitrogen 42(H) 8 - 18 mg/dL [facility] Creatinine 1.24(H) 0.70 - 1.20 mg/dL [facility] Sodium 134(L) 135 - 145 mmol/L [facility] Potassium 4.6 3.5 - 5.0 mmol/L [facility] Comment: Please note: ??Patients with WBC >100,000 may have falsely elevated Potassium levels. ??For accurate Potassium quantification in these patients send serum separator tube (gold top) for subsequent determinations. ??Contact the Clinical Chemistry Laboratory if there are any questions. Chloride 99 98 - 107 mmol/L [facility] Carbon Dioxide 14(L) 22 - 31 mmol/L [facility] Anion Gap 21(H) 5 - 15 mmol/L [facility] Calcium 9.6 8.5 - 10.5 mg/dL [facility] Protein, Total 7.2 6.1 - 8.0 g/dL [facility] Albumin 3.7 3.2 - 5.2 g/dL [facility] Aspartate Aminotransferase 144(H) 0 - 30 unit/L [facility] Comment:result rechecked-ssc Alanine Aminotransferase 130(H) 0 - 30 unit/L [facility] Comment:result rechecked-[facility] [place] Alkaline Phosphatase 72 35 - 105 unit/L [facility] Bilirubin, Total 0.8 0.2 - 1.3 mg/dL [facility] Est Glomerular Filtration Rate 48(L) >=60 mL/min/1. 73 m?? [facility] Comment: This patient's estimated GFR [...] Lab Radha Hollins MD CHEMISTRY ORDERABL ES [facility] [place] [address] * EKG 12 Lead (05/10/2023 1:16 PM EDT) Ventricular rate 118 BPM MUSE SYSTEM Atrial Rate 118 BPM MUSE SYSTEM P-R Interval 152 ms MUSE SYSTEM QRS Duration 104 ms MUSE SYSTEM Q-T Interval 316 ms MUSE SYSTEM QTC Calculated (Bezet) 442 ms MUSE SYSTEM Calculated P [place] 29 degrees MUSE SYSTEM Calculated R [place] 18 degrees MUSE SYSTEM Calculated T [place] -173 degrees MUSE SYSTEM INTERPRETATION Sinus tachycardia [...] Anterior leads Confirmed by MD Villareal Danette ([id number]) on 05/10/2023 8:47:46 PM MUSE SYSTEM 05/10/2023 1:16 PM EDT 05/10/2023 8:47 PM EDT Juan Luis Gonzalez MD ECG ORDERABLES MUSE SYSTEM * Lactate, whole blood, send to lab ([facility] (05/10/2023 11:52 AM EDT) Lactate WB 1.8 0.5 - 2.2 mmol/L [facility] Blood 05/10/2023 11:5 2 AM EDT 05/10/2023 12:13 PM EDT Narrative Resulting Agency Comment Spec In Lab Juan Luis Gonzalez MD CHEMISTRY ORDERABLES [facility] [place] [address] * XR Chest One View (05/10/2023 11:16 [...] questions please contact the health clinical care coordinator that requested your imaging first. ? Electronically signed by: ALIX RUVALCABA MD, [facility] ([phone]), at 05/10/2023 1:25 PM Narrative 05/10/2023 1:25 [...] have questions please contactthe health clinical care coordinator that requested your imaging first. Electronically signed by: ALIX RUVALCABA MD, [facility]([phone]), at 05/10/2023 1:25 PM Juan Luis Gonzalez MD IMG DX ORDERABLES * EKG 12 Lead (05/10/2023 7:59 AM EDT) [facility] Ventricular rate 115 BPM MUSE SYSTEM Atrial Rate 115 BPM MUSE SYSTEM P-R Interval 142 ms MUSE SYSTEM QRS Duration 102 ms MUSE SYSTEM Q-T Interval 322 ms MUSE SYSTEM QTC Calculated (Bezet) 445 ms MUSE SYSTEM Calculated P [place] 36 degrees MUSE SYSTEM Calculated R [place] 28 degrees MUSE SYSTEM Calculated T [place] -119 degrees MUSE SYSTEM INTERPRETATION Sinus tachycardia [...] Differential, Automated (05/10/2023 2:28 AM EDT) [facility] Neutrophil % 77.1 % [facility] Neutrophil Absolute 4.01 1.70 - 6.10 x10(3)/mc L [facility] Lymph % 14.0 % [facility] Lymphocytes Abs 0.7(L) 0.9 - 3.2 x10(3)/mc L [facility] Monocyte % 7.7 % [facility] Monocyte Abs 0.4 0.3 - 0.9 x10(3)/mc L [facility] Eos % 0.4 % [facility] Eosinophils Abs 0.0 0.0 - 0.4 x10(3)/mc L [facility] Basophil % 0.4 % [facility] Baso Absolute 0.0 0.0 - 0.1 x10(3)/mc L [facility] Immature Gran % 0.40 % [facility] Comment: Immature granulocytes(IG's)percentage and absolute count will include metamyelocytes, myelocytes, and promyelocytes. Blood smears from CBCs yielding IG's will be scanned manually for concordance. If this scan disagrees with the automated IG or if promyelocytes are noted, a manual differential will be performed. Immature Gran Absolute 0.02 0.00 - 0.04 x10(3)/[facility] Blood 05/10/2023 2:28 AM EDT 05/10/2023 2:57 AM EDT Narrative Resulting Agency Comment Spec In Lab Klaudia Reid MD HEMATOLOGY OR DERABLES [facility] [place] [address] * (ABNORMAL) Hemogram (05/10/2023 2:28 AM EDT) White Blood Cell 5.2 4.0 - 9.5 x10(3)/[facility] Red Blood Cell 3.11(L) 4.00 - 5.21 x10(6)/[facility] Hemoglobin 10.2(L) 11.7 - 15.5 g/dL [facility] Hematocrit 30.2(L) 35.7 - 45.8 % [facility] Mean Cell Volume 97.1(H) 82.6 - 94.4 fL [facility] Mean Cell Hemoglobin 32.8(H) 27.1 - 32.0 pg [facility] Mean Cell Hemoglobin Concentration 33.8 31.7 - 35.0 g/dL [facility] Platelet 151 145 - 357 x10(3)/[facility] RDW Standard Deviation 44.9 37.0 - 46.0 fL [facility] RDW coefficient of variation 12.8 11.5 - 14.1 % [facility] Mean Platelet Volume 9.8 7.6 - 12.9 fL [facility] NRBC% auto 0.0 % [facility] NRBC Absolute 0.000 0.000 - 0.000 x10(3)/[facility] Blood 05/10/2023 2:28 AM EDT 05/10/2023 2:57 AM EDT Narrative Resulting Agency Comment Spec In Lab Klaudia Reid MD HEMATOLOGY OR DERABLES [facility] [place] [address] * (ABNORMAL) Comprehensive metabolic panel (non-fasting) (05/10/2023 2:28 AM EDT) Glucose 100 65 - 199 mg/dL [facility] Comment:Diabetes: >=200 mg/d L plus symptoms Blood Urea Nitrogen 30(H) 8 - 18 mg/dL [facility] Creatinine 0.90 0.70 - 1.20 mg/dL [facility] Sodium 134(L) 135 - 145 mmol/L [facility] Potassium 4.1 3.5 - 5.0 mmol/L [facility] Comment: Please note: ??Patients with WBC >100,000 may have falsely elevated Potassium levels. ??For accurate Potassium quantification in these patients send serum separator tube (gold top) for subsequent determinations. ??Contact the Clinical Chemistry Laboratory if there are any questions. Chloride 102 98 - 107 mmol/L [facility] Carbon Dioxide 20(L) 22 - 31 mmol/L [facility] Anion Gap 12 5 - 15 mmol/L [facility] Calcium 9.3 8.5 - 10.5 mg/dL [facility] Protein, Total 6.4 6.1 - 8.0 g/dL [facility] Albumin 3.7 3.2 - 5.2 g/dL [facility] Aspartate Aminotransferase 24 0 - 30 unit/L [facility] Alanine Aminotransferase 14 0 - 30 unit/L [facility] Alkaline Phosphatase 70 35 - 105 unit/L [facility] Bilirubin, Total 0.5 0.2 - 1.3 mg/dL [facility] Est Glomerular Filtration Rate 70 >=60 mL/min/1. 73 m?? [facility] Comment: This patient's estimated GFR [...] MD CHEMISTRY ORDERABL ES Performing Organization Address [facility] [place] [address] * Heparin (unfractionated) Level (05/10/2023 2:28 AM EDT) UF Heparin 0.37 IU/mL [facility] Comment: Heparin (anti-Xa) [...] MD HEMATOLOGY ORDERAB LES Performing Organization Address [facility]/ZIP Co de Phone Number [facility] [place] [address] * (ABNORMAL) Differential, Automated (05/09/2023 4:00 AM EDT) Neutrophil % 81.7 % [facility] Neutrophil Absolute 5.26 1.70 - 6.10 x10(3)/mc L [facility] Lymph % 10.7 % [facility] Lymphocytes Abs 0.7(L) 0.9 - 3.2 x10(3)/[facility] Monocyte % 6.5 % [facility] Monocyte Abs 0.4 0.3 - 0.9 x10(3)/[facility] Eos % 0.5 % [facility] Eosinophils Abs 0.0 0.0 - 0.4 x10(3)/[facility] Basophil % 0.3 % [facility] Baso Absolute 0.0 0.0 - 0.1 x10(3)/[facility] Immature Gran % 0.30 % [facility] Comment: Immature granulocytes(IG's)percentage and absolute count will include metamyelocytes, myelocytes, and promyelocytes. Blood smears from CBCs yielding IG's will be scanned manually for concordance. If this scan disagrees with the automated IG or if promyelocytes are noted, a manual differential will be performed. Immature Gran Absolute 0.02 0.00 - 0.04 x10(3)/ L [facility] Blood 05/09/2023 4:00 AM EDT 05/09/2023 4:19 AM EDT Narrative Resulting Agency Comment Spec In Lab Klaudia Reid MD HEMATOLOGY OR DERABLES [facility] [place] [address] * (ABNORMAL) Hemogram (05/09/2023 4:00 AM EDT) White Blood Cell 6.4 4.0 - 9.5 x10(3)/[facility] Red Blood Cell 3.15(L) 4.00 - 5.21 x10(6)/[facility] Hemoglobin 10.2(L) 11.7 - 15.5 g/dL [facility] Hematocrit 30.3(L) 35.7 - 45.8 % [facility] Mean Cell Volume 96.2(H) 82.6 - 94.4 fL [facility] Mean Cell Hemoglobin 32.4(H) 27.1 - 32.0 pg [facility] Mean Cell Hemoglobin Concentration 33.7 31.7 - 35.0 g/dL [facility] Platelet 151 145 - 357 x10(3)/mc L [facility] RDW Standard Deviation 44.7 37.0 - 46.0 fL [facility] RDW coefficient of variation 12.8 11.5 - 14.1 % [facility] Mean Platelet Volume 9.4 7.6 - 12.9 fL [facility] NRBC% auto 0.0 % [facility] NRBC Absolute 0.000 0.000 - 0.000 x10(3)/mc L [facility] Blood 05/09/2023 4:00 AM EDT 05/09/2023 4:19 AM EDT Narrative Resulting Agency Comment Spec In Lab Klaudia Reid MD HEMATOLOGY OR DERABLES Performing Organization Address City/State/[facility] Co de Phone Number [facility] [place] [address] * Heparin (unfractionated) Level (05/09/2023 4:00 AM EDT) UF Heparin 0.47 IU/mL [facility] Comment: Heparin (anti-Xa) levels should [...] Lab Radha Hollins MD HEMATOLOGY ORDERAB LES [facility] [place] [address] * (ABNORMAL) Comprehensive metabolic panel (non-fasting) (05/09/2023 4:00 AM EDT) Glucose 108 65 - 199 mg/dL [facility] Comment:Diabetes: >=200 mg/d L plus symptoms Blood Urea Nitrogen 31(H) 8 - 18 mg/dL [facility] Creatinine 1.03 0.70 - 1.20 mg/dL [facility] Sodium 137 135 - 145 mmol/L [facility] Potassium 4.4 3.5 - 5.0 mmol/L [facility] Comment: Please note: ??Patients with WBC >100,000 may have falsely elevated Potassium levels. ??For accurate Potassium quantification in these patients send serum separator tube (gold top) for subsequent determinations. ??Contact the Clinical Chemistry Laboratory if there are any questions. Chloride 102 98 - 107 mmol/L [facility] Carbon Dioxide 20(L) 22 - 31 mmol/L [facility] Anion Gap 15 5 - 15 mmol/L [facility] Calcium 9.3 8.5 - 10.5 mg/dL [facility] Protein, Total 6.6 6.1 - 8.0 g/dL [facility] Albumin 3.8 3.2 - 5.2 g/dL [facility] Aspartate Aminotransferase 32(H) 0 - 30 unit/L [facility] Alanine Aminotransferase 18 0 - 30 unit/L [facility] Alkaline Phosphatase 78 35 - 105 unit/L [facility] Bilirubin, Total 0.5 0.2 - 1.3 mg/dL [facility] Est Glomerular Filtration Rate 60 >=60 mL/min/1. 73 m?? [facility] Comment: This patient's estimated GFR [...] MD CHEMISTRY ORDERABL ES Performing Organization Address [facility] Co de Phone Number [facility] [place] [address] * (ABNORMAL) pro-Brain Natriuretic Peptide (05/08/2023 4:00 PM EDT) NT-proBNP 25,503(H) <=124 pg/mL [facility] Blood Venous Draw / Unknown 05/08/2023 4:00 PM EDT 05/08/2023 4:25 PM EDT Narrative Resulting Agency Comment Spec In Lab Juan Luis Gonzalez MD CHEMISTRY ORDERABLES Performing Organization Address [facility] Healthcare/[facility] Co de Phone Number [facility] [place] [place] [address] * Magnesium (05/08/2023 4:00 PM EDT) Magnesium 0.82 0.69 - 1.07 mmol/L [facility] Blood 05/08/2023 4:00 PM EDT 05/08/2023 4:06 PM EDT Narrative Resulting Agency Comment Spec In Lab Enrique Chua MD CHEMISTRY ORDERABLES Performing Organization Address [facility] Co de Phone Number [facility] [place] [place] [address] * Potassium (05/08/2023 4:00 PM EDT) Potassium 3.9 3.5 - 5.0 mmol/L [facility] Comment: Please note: ??Patients with [...] MD CHEMISTRY ORDERABL ES Performing Organization Address [facility] Co de Phone Number [facility] [place] [place] [address] * Heparin (unfractionated) Level (05/08/2023 4:00 PM EDT) Pathologist [facility] UF Heparin 0.43 IU/mL [facility] Comment: Heparin (anti-Xa) [...] MD HEMATOLOGY ORDERAB LES Performing Organization Address [facility] Co de Phone Number [facility] [place] [address] * EKG 12 Lead (05/08/2023 3:51 PM EDT) Ventricular rate 98 BPM MUSE SYSTEM Atrial Rate 98 BPM MUSE SYSTEM P-R Interval 150 ms MUSE SYSTEM QRS Duration 102 ms MUSE SYSTEM Q-T Interval 358 ms MUSE SYSTEM QTC Calculated (Bezet) 457 ms MUSE SYSTEM Calculated P [place] 38 degrees MUSE SYSTEM Calculated R [place] 48 degrees MUSE SYSTEM Calculated T [place] -112 degrees MUSE SYSTEM INTERPRETATION Sinus rhythm with frequent and consecutive Premature ventricular and fusion complexes Septal infarct , age undetermined ST & T wave abnormality, consider anterolateral ischemia Abnormal ECG When compared with ECG of 09-NOV-2022 11:17, T wave inversion now evident in Anterolateral leads Confirmed by MD Harshil, Enrique Bell ([id number]) on 05/10/2023 8:11:46 AM MUSE SYSTEM 05/08/2023 3:51 PM EDT 05/10/2023 8:11 AM EDT Radha Hollins MD ECG ORDERABLES MUSE SYSTEM * (ABNORMAL) Differential, Automated (05/08/2023 11:38 AM EDT) Neutrophil % 71.3 % [facility] Neutrophil Absolute 2.91 1.70 - 6.10 x10(3)/mc L [facility] Lymph % 19.1 % [facility] Lymphocytes Abs 0.8(L) 0.9 - 3.2 x10(3)/mc L [facility] Monocyte % 9.0 % [facility] Monocyte Abs 0.4 0.3 - 0.9 x10(3)/mc L [facility] Eos % 0.2 % [facility] Eosinophils Abs 0.0 0.0 - 0.4 x10(3)/mc L [facility] Basophil % 0.2 % [facility] Baso Absolute 0.0 0.0 - 0.1 x10(3)/mc L [facility] Immature Gran % 0.20 % [facility] Comment: Immature granulocytes(IG's)percentage and absolute count will include metamyelocytes, myelocytes, and promyelocytes. Blood smears from CBCs yielding IG's will be scanned manually for concordance. If this scan disagrees with the automated IG or if promyelocytes are noted, a manual differential will be performed. Immature Gran Absolute 0.01 0.00 - 0.04 x10(3)/mc L [facility] Blood 05/08/2023 11:3 8 AM EDT 05/08/2023 11:44 AM EDT Narrative Resulting Agency Comment Spec In Lab Lincoln Sal MD HEMATOLOGY ORDERA BLES [facility] [place] [place] [address] * (ABNORMAL) Hemogram (05/08/2023 11:38 AM EDT) White Blood Cell 4.1 4.0 - 9.5 x10(3)/mc L [facility] Red Blood Cell 3.05(L) 4.00 - 5.21 x10(6)/mc L [facility] Hemoglobin 10.2(L) 11.7 - 15.5 g/dL [facility] Hematocrit 29.6(L) 35.7 - 45.8 % [facility] Mean Cell Volume 97.0(H) 82.6 - 94.4 fL [facility] Mean Cell Hemoglobin 33.4(H) 27.1 - 32.0 pg [facility] Mean Cell Hemoglobin Concentration 34.5 31.7 - 35.0 g/dL [facility] Platelet 136(L) 145 - 357 x10(3)/mc L [facility] RDW Standard Deviation 44.3 37.0 - 46.0 fL [facility] RDW coefficient of variation 12.6 11.5 - 14.1 % [facility] Mean Platelet Volume 9.4 7.6 - 12.9 fL [facility] NRBC% auto 0.0 % [facility] NRBC Absolute 0.000 0.000 - 0.000 x10(3)/mc L [facility] Blood 05/08/2023 11:3 8 AM EDT 05/08/2023 11:44 AM EDT Narrative Resulting Agency Comment Spec In Lab Lincoln Sal MD HEMATOLOGY ORDERA BLES [facility] [place] [place] [address] * TSH (05/08/2023 11:38 AM EDT) Thyroid Stimulating Hormone 1.27 0.27 - 4.20 mcIU/mL [facility] Comment: Reference Interval (mcIU/mL): Females: ??First Trimester: 0.23-3.88 ??Second Trimester: 0.22-3.90 ??Third Trimester: 0.44-4.66 Blood 05/08/2023 11:3 8 AM EDT 05/08/2023 11:44 AM EDT Narrative Resulting Agency Comment Spec In Lab Enrique Chua MD CHEMISTRY ORDERABLES Performing Organization Address City/[facility] Co de Phone Number [facility] [place] [place] [address] * (ABNORMAL) Phosphorus (05/08/2023 11:38 AM EDT) Phosphorus 4.7(H) 2.5 - 4.5 mg/dL [facility] Blood 05/08/2023 11:3 8 AM EDT 05/08/2023 11:44 AM EDT Narrative Resulting Agency Comment Spec In Lab Enrique Chua MD CHEMISTRY ORDERABLES Performing Organization Address [facility] Co de Phone Number [facility] [place] [place] [address] * Magnesium (05/08/2023 11:38 AM EDT) Magnesium 0.76 0.69 - 1.07 mmol/L [facility] Blood 05/08/2023 11:3 8 AM EDT 05/08/2023 11:44 AM EDT Narrative Resulting Agency Comment Spec In Lab Enrique Chua MD CHEMISTRY ORDERABLES Performing Organization Address [facility] Co de Phone Number [facility] [place] [address] * (ABNORMAL) Basic Metabolic Panel (non-fasting) (05/08/2023 11:38 AM EDT) Glucose 97 65 - 199 mg/dL [facility] Comment:Diabetes: >=200 mg/d L plus symptoms Blood Urea Nitrogen 27(H) 8 - 18 mg/dL [facility] Creatinine 1.02 0.70 - 1.20 mg/dL [facility] Sodium 139 135 - 145 mmol/L [facility] Potassium 4.2 3.5 - 5.0 mmol/L [facility] Comment: Please note: ??Patients with WBC >100,000 may have falsely elevated Potassium levels. ??For accurate Potassium quantification in these patients send serum separator tube (gold top) for subsequent determinations. ??Contact the Clinical Chemistry Laboratory if there are any questions. Chloride 105 98 - 107 mmol/L [facility] Carbon Dioxide 20(L) 22 - 31 mmol/L [facility] Anion Gap 14 5 - 15 mmol/L [facility] Calcium 9.4 8.5 - 10.5 mg/dL [facility] Est Glomerular Filtration Rate 60 >=60 mL/min/1. 73 m?? [facility] Comment: This patient's estimated GFR [...] [facility] Co de Phone Number [facility] [place] [address] * ECHO COMPLETE (05/08/2023 11:02 AM EDT) EF 25 HEARTMoove In SYSTEM Anatomical Region Laterality Modality Cardiac Other 05/08/2023 10:0 3 AM EDT Narrative 05/08/2023 11:51 AM EDT ? Echocardiogram Report Name: PURNIMA THACKER ?Study Date: 05/08/2023 10:03 AMBP: 92/64 mmHg ? Patient Location: [facility]^CV29^A : 1955 ? Height: 155 cm ? Account: [id number] Age: 67 yrs ? Weight: 78 kg Gender: Female ?BSA: 1.8 m2 Ordering Physician: ENRIQUE CHUA Referring Physician: MARIO ALBERTO CHIN Performed By: CHUCKIE Canchola Reason For Study: SAVR Stenosis Exam Location: [facility]. Interpretation Summary -Left ventricle is [...] worsening stenosis. Mitral regurgitation is similar. Procedure Complete-[id number]. Satisfactory quality. There is normal sinus rhythm. [...] Study Date: 310:03 AMBP: 92/64 mmHg Patient Location:[facility]^CV29^A : 1955 Height: 155 cm Account: [id number] Age: 67 yrs Weight: 78 kg Gender: Female BSA: 1.8 m2 Ordering Physician: ENRIQUE CHUA Referring Physician: MARIO ALBERTO CHIN Performed By: CHUCKIE Canchola Reason For Study: SAVR Stenosis Exam Location: [facility]. Interpretation Summary -Left ventricle is [...] suggestsworsening stenosis. Mitral regurgitation is similar. Procedure Complete-[id number]. Satisfactory quality. There is normal sinus rhythm. [...] 9:45 AM EDT) UF Heparin 0.54 IU/mL [facility] Comment: Heparin (anti-Xa) [...] [facility] Co de Phone Number [facility] [place] [address] documented in this encounter Visit Diagnoses Diagnosis S/P TAVR (transcatheter aortic valve replacement)- Primary Aortic valve stenosis, etiology of cardiac valve disease unspecified Heart failure with reduced ejection fraction due to heart valve disease Mild coronary artery disease by [facility] 11/09/2022 Mixed connective tissue disease Other specified [...] artery disease by [facility] 11/09/2022 Stenosis of prosthetic aortic valve (Bovine [...] 40 mEq, Oral, ONCE, 1 dose, On [facility] 05/20/23 at 0915, potassium chloride ER [...] post-op day 1 in the AM Give OK if unable to take PO, Routine Group [...] Routine documented in this encounter Care Teams Traffic Circuit Engineer Relationship Specialty Start Date End Date Magdalena Acosta MD [address] [place] [address] PCP - General Family Medicine 02/05/23 documented as of this encounter
--- OUTSIDE RECORDS SUMMARY | 2024-03-30 14:29 | XMS_ITS | Encounter Summary ---
Author Organization [place] [id number] Care Team Providers Care Residential Assistant Name Role Phone Magdalena Acosta MD Primary Care Provider [phone] Reason for Visit * Auth/Cert (Routine) Specialty Diagnoses / Procedures Referred By Contac t Referred To Contact Diagnoses Symptomatic severe aortic stenosis with low ejection fraction NSTEMI, CHF Haris Chua MD [facility] [place] [address] [facility] Referral ID Status Reason Start Date Expiration Date Visits Re quested Visits Authorized [id number] 1 1 Encounter Details Date Type Department Care Team (Late st Contact Info) Description 05/12/2023 7:35 AM EDT Anesthesia [place] [address] Lynda Mcgowan MD [facility] [place] [address] Alie Park MD [facility] [place] [address] Anesthesia Record Procedure Summary Procedure Name Responsible [...] cephalic vein (lateral side of arm), left; [id number] catheter system; Anatomical Landmarks; US Not Used; [...] RN LDA Cath/EP Sheath 05/12/23; 0733; 14 Ivorian (Fr); Right; Femoral; Arterial 05/12/23 0733 by Guerda Bender, RN 05/12/23 0830 by Guerda Bender RN LDA Cath/EP Sheath 05/12/23; 0734; 6 Ivorian (Fr); Right; Femoral; Venous 05/12/23 0734 by Guerda Bender RN 05/12/23 0817 by Guerda Bender RN LDA Cath/EP Sheath 05/12/23; 0734; 7 Ivorian (Fr); Left; Femoral; Arterial 05/12/23 0734 by Guerda Bender, RN 05/12/23 0837 by Guerda Bender RN LDA Cath/EP Sheath 05/12/23; 0734; 6 Ivorian (Fr); Left; Femoral; Venous 05/12/23 0734 by [...] Procedure Summary Date: 05/12/23 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 / [facility] CATH LABS Anesthesia Start: 734 Anesthesia Stop: Procedures: CARDIAC CATHETERIZATION COMBINED RIGHT & LEFT HEART CATH,INC INJ FOR L VENTRICULOGRAPHY (WRVU 5.99) @TRANSCATHETER AORTIC VALVE REPLACEMENT (TAVR), PERCUTANEOUS FEMORAL (WRVU 22.47) TRANSESOPHAGEAL ECHO DURING CATH/EP PROCEDURE Diagnosis: Aortic valve stenosis, etiology of cardiac valve disease unspecified (/TAVR) Providers: Antelmo Sharma MD; Alirio Esparza MD; aHris Chua MD Responsible Provider: Lynda Mcgowan MD Anesthesia Type: general ASA Status: 3 All Anesthesia Providers: Anesthesiologist: Lynda Mcgowan MD Airport Planner: Nico Graham MD Vitals Value Taken Time [...] 05/08/2023 ??? Mild coronary artery disease by [facility] 11/09/2022 05/08/2023 ??? Heart failure [...] IMG S&I N/A 11/09/2022 CORONARY ANGIOGRAPHY; [facility],POSSIBLE PCI (WRVU 5.6) performed by Nitesh Escobedo MD at [facility] CATH LABS ??? PRO AORTOPLAS FOR SUPRAVALV STEN N/A 09/21/2016 @AORTOPLASTY FOR SUPRAVALVULAR STENOSIS (WRVU 29.33) performed by Alirio Esparza MD at [facility] MAIN OR ??? PRO REPLACEMENT PROSTHETIC AORTIC VALVE OPEN W CARDIOPULMONARY BYPASS HOMOGRF/STENT N/A 09/21/2016 @REPLACE AORTIC VALVE, OPEN, W\CPB, W\PROSTHETIC VALVE (WRVU 41.32) performed by Alirio Esparza MD at [facility] MAIN OR Social History Tobacco Use [...] 3 general, with a(n) intravenous induction Add-on [id number] TAVR. In cardiogenic shock. Has arterial line, [...] 4:15 PM EDT Office Visit Dermatology at [place] [address] [place] [phone] Marek Bonilla MD [address] [place] [address] documented as of this encounter Visit Diagnoses [...] mL/hr documented in this encounter Care Teams Residential Assistant Relationship Specialty Start Date End Date Magdalena Acosta MD [address] [place] [address] PCP - General Family Medicine 02/05/23 documented as of this encounter
--- OUTSIDE RECORDS SUMMARY | 2024-03-30 14:30 | XMS_ITS | Encounter Summary ---
Author Organization Formerly [facility] Address [facility] [place] [address] Care Team Providers Care Maintenance Planner Name Role Phone Magdalena Acosta MD Primary Care Provider [phone] Reason for Visit * Consultation (Routine) - Closed Specialty Diagnoses / Procedures Referred By Contac t Referred To Contact Rheumatology Diagnoses Weakness Kyra Haas MD [facility] [address] [place] [address] [facility] [address] [place] [phone] Referral ID Status Reason Start Date Expiration Date V isits Requested Visits Authorized [id number] Closed Consult, Test & Treat PCP Updated and/or Approved 02/25/2023 02/25/2024 6 6 Encounter Details Date Type Department Care Team (Late st Contact Info) Description 03/18/2023 1:00 PM EDT Office [place] [address] Kia Viramontes DO [facility] [place] [address] Magdalena Peralta MD [facility] [place] [address] Positive FRANCISCO (antinuclear antibody) Social [...] positive FRANCISCO History of Present Illness: Purnima Thcaker is a 67 y.o. 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 Kirtsie has been seen for today's complaints by [...] 1:5120 speckled VIC negative Myositis panel with SOFTWARE SALES CONSULTANT ab 149.1 (positive) Anti U1RNP IgG 119 [...] a chair without assistance of upper extremities. 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 Recommendations: #mixed connective tissue disease Start hydroxychloroquine 200 mg qd Labs today: repeat FRANCISCO, dsDNA, complements, CBC, CMP, CK, ESR, CRP Follow up 1 month The patient was seen and discussed with Dr. Wander Peralta MD Rheumatology Fellow Pager: [phone] CC: Kyra Haas * Kia Viramontes DO - 03/18/2023 1:00 PM EDT ATTENDING ADDENDUM The patient's history was reviewed, and I interviewed and examined the patient with Dr. Campbell. Arnold with her summary, findings, and plan. documented in this encounter Plan of Treatment Upcoming Encounters Date Type Department Care Team (Late st Contact Info) Description 03/01/2025 4:15 PM EDT Office Visit Dermatology at [place] [address] [place] [address] Marek Bonilla MD [address] [place] [address] documented as of this encounter Results * Comprehensive metabolic panel (non-fasting) (03/18/2023 2:14 PM EDT) Glucose 93 65 - 199 mg/dL [facility] Comment:Diabetes: >=200 mg/d L plus symptoms Blood Urea Nitrogen 18 8 - 18 mg/dL [facility] Creatinine 0.99 0.70 - 1.20 mg/dL [facility] Sodium 141 135 - 145 mmol/L [facility] Potassium 4.5 3.5 - 5.0 mmol/L [facility] Comment: Please note: ??Patients with WBC >100,000 may have falsely elevated Potassium levels. ??For accurate Potassium quantification in these patients send serum separator tube (gold top) for subsequent determinations. ??Contact the Clinical Chemistry Laboratory if there are any questions. Chloride 106 98 - 107 mmol/L [facility] Carbon Dioxide 24 22 - 31 mmol/L [facility] Anion Gap 11 5 - 15 mmol/L [facility] Calcium 10.0 8.5 - 10.5 mg/dL [facility] Protein, Total 7.3 6.1 - 8.0 g/dL [facility] Albumin 4.3 3.2 - 5.2 g/dL [facility] Aspartate Aminotransferase 26 0 - 30 unit/L [facility] Alanine Aminotransferase 11 0 - 30 unit/L [facility] Alkaline Phosphatase 91 35 - 105 unit/L [facility] Bilirubin, Total 0.4 0.2 - 1.3 mg/dL [facility] Est Glomerular Filtration Rate 62 >=60 mL/min/1. 73 m?? [facility] [...] DO CHEMISTRY ORDERABL ES Performing Organization Address City/State/[facility] Co de Phone Number [facility] [address] * (ABNORMAL) FRANCISCO Ab by IFA (03/18/2023 2:14 PM EDT) FRANCISCO Ab Screen Test ? Result ?Flag ??Unit ??RefValue Antinuclear Ab, HEp-2 ?Positive 1:2560 ??@ ?<1:80 (Negative) ??Substrate, S ? ADDITIONAL INFORMATION --------- ?Method: Immunofluorescence using HEp-2 cellular substrate. ??FRANCISCO Titer: ? 1:2560 ??FRANCISCO Pattern: ? Speckled ?Test Performed by: ?[facility] ?[address] [place] [address] ?Sea Kayaking Guide: Raymond Chaudhry M.D. Ph.D.; CLIA# [id number] ([id number]) [facility] Blood 03/18/2023 2:14 PM EDT 03/18/2023 3:02 PM EDT Narrative Resulting Agency Comment Spec In Lab Kia Viramontes DO CHEMISTRY ORDERABL ES Performing Organization Address [facility] de Phone Number [facility] [address] * DNA Antibody (Double-Stranded) (03/18/2023 2:14 PM EDT) [facility] dsDNA Ab <0.6 <=15.0 IU/mL [facility] Comment: <10 negative 10-15 equivocal >15 positive This dsDNA antibody result was generated using a fluoroenzyme immunoassay on the Buzzoodia 250 analyzer. This quantitative test is designed to detect IgG antibodies directed against double stranded DNA in human serum. The presence of antibodies that recognize dsDNA is a highly specific marker for systemic lupus erythematosus. Please note that as of 05/26/2022 that this testing is performed by the Special Chemistry Laboratory at [facility]. This change in testing location is associated with a change is testing method and reference intervals. Please review the results of this test in association with the posted reference intervals. Blood 03/18/2023 2:14 PM EDT 03/19/2023 7:19 AM EDT Narrative Resulting Agency Comment Spec In Lab Kia Viramontes DO LAB SEND OUT ORDER JODIE Performing Organization Address [facility]/ZIP Co de Phone Number [facility] [address] * CK (03/18/2023 2:14 PM EDT) Creatine Kinase 38 0 - 160 unit/L [facility] Blood 03/18/2023 2:14 PM EDT 03/18/2023 2:24 PM EDT Narrative Resulting Agency Comment Spec In Lab Kia D Wander DO CHEMISTRY ORDERABL ES Performing Organization Address [facility] Co de Phone Number [facility] [address] * C4 Complement (03/18/2023 2:14 PM EDT) Complement C4 30 10 - 40 mg/dL [facility] Blood 03/18/2023 2:14 PM EDT 03/18/2023 2:24 PM EDT Narrative Resulting Agency Comment Spec In Lab Kia D Wander DO CHEMISTRY ORDERABL ES Performing Organization Address [facility] Co de Phone Number [facility] [address] * C3 Complement (03/18/2023 2:14 PM EDT) Complement C3 142 90 - 180 mg/dL [facility] Blood 03/18/2023 2:14 PM EDT 03/18/2023 2:24 PM EDT Narrative Resulting Agency Comment Spec In Lab Kia D Wander DO CHEMISTRY ORDERABL ES Performing Organization Address [facility] Co de Phone Number [facility] [address] * CRP, acute inflammation (03/18/2023 2:14 PM EDT) C-Reactive Protein 3.0 <=4.9 mg/L [facility] Blood 03/18/2023 2:14 PM EDT 03/18/2023 2:24 PM EDT Narrative Resulting Agency Comment Spec In Lab Kia Viramontes DO CHEMISTRY ORDERABL ES Performing Organization Address City/[facility]/ZIP Co de Phone Number [facility] [address] * (ABNORMAL) Sedimentation rate (03/18/2023 2:14 PM EDT) Sedimentation Rate Automated 68(H) 2 - 39 mm/hr [facility] Comment: Effective July 12, 2019 new capillary photometric technology has resulted in a change in reference ranges. It is recommended that each ESR result be reviewed with its own age appropriate reference range. Blood 03/18/2023 2:14 PM EDT 03/18/2023 2:24 PM EDT Narrative Resulting Agency Comment Spec In Lab Kia Viramontes DO HEMATOLOGY ORDERAB LES Performing Organization Address City/[facility] Co de Phone Number [facility] [place] [address] documented in this encounter Visit Diagnoses Diagnosis Positive FRANCISCO (antinuclear antibody) Other and unspecified nonspecific immunological findings documented in this encounter Care Teams Maintenance Planner Relationship Specialty Start Date End Date Magdalena Acosta MD [address] [place] [address] PCP - General Family Medicine 02/05/23 documented as of this encounter
--- OUTSIDE RECORDS SUMMARY | 2024-03-30 14:30 | XMS_ITS | Encounter Summary ---
[place] [address] Care Team Providers Care Business Rules Analyst Name Role Phone Magdalena Acosta MD Primary Care Provider [phone] Reason for Visit * Reason Comments Suture / Staple Removal Encounter Details Date Type Department Care Team (Late st Contact Info) Description 02/16/2023 10:00 AM EDT Office Visit Dermatology at [place] [address] [facility] [place] [address] Marek Bonilla MD [address] [facility] DERMATOLOGY [place], [place] [id number] Visit for suture removal Social History Tobacco [...] EDT Office Visit Dermatology at [place] [address] [facility] [place] [address] Marek Bonilla MD [address], [place] [address] documented as of this encounter Visit Diagnoses Diagnosis Visit for suture removal Encounter for removal of sutures documented in this encounter Care Teams Business Rules Analyst Relationship Specialty Start Date End Date Magdalena Acosta MD [address] [place] [address] PCP - General Family Medicine 02/05/23 documented as of this encounter
--- OUTSIDE RECORDS SUMMARY | 2024-03-30 14:30 | XMS_ITS | Encounter Summary ---
Author Organization [facility]ly [facility] Address [facility] [place] [address] Care Team Providers Care Roller Gold Leaf Name Role Phone Magdalena Acosta MD Primary Care Provider [phone] Encounter Details Date Type Department Care Team (Late st Contact Info) Description 04/27/2023 3:00 PM EDT Office [place] [address] Magdalena Peralta MD [facility] [place] [address] Mixed connective tissue disease Social History Tobacco [...] 1:5120 speckled; VIC negative; Myositis panel with HR ADMINISTRATIVE ASSISTANT ab 149.1 (positive); Anti U1RNP IgG 119; [...] 4:15 PM EDT Office Visit Dermatology at [place] [address] [facility] [place] [address] Marek Bonilla MD [address] [facility] [place] [address] documented as of this encounter Visit Diagnoses Diagnosis Mixed connective tissue disease Other specified diffuse disease of connective tissue documented in this encounter Care Teams Roller Gold Leaf Relationship Specialty Start Date End Date Magdalena Acosta MD [address] [place] [address] PCP - General Family Medicine 02/05/23 documented as of this encounter
--- OUTSIDE RECORDS SUMMARY | 2024-03-30 14:30 | XMS_ITS | Encounter Summary ---
Author Organization [facility] [place] [address] Care Team Providers Care Glost Kiln Placer Name Role Phone Magdalena Acosta MD Primary Care Provider [phone] Encounter Details Date Type Department Care Team (Late st Contact Info) Description 05/08/2023 [place] [address] Luis Felipe Ott MD [facility] [place] [address] Social History Tobacco Use Types Packs/Day Years [...] 0426 Referring Provider: Nitesh Baltazar Patient Location: [facility] Presenting Symptoms per OSH: 67 year [...] diuresis with IV furosemide 20 x 1 ([id number] at rheumatology appointment), SpO2 85% on RA -> 95% on 2L NC, HR 120s. Examination significant for decreased breath sounds at the bases. Pertinent Diagnostic Findings: CBC - Hgb 10.5 CMP - Cr 1.1 BNP 83233 HsTrop 1358 Lactate 1.6 D-dimer 1183, CTPE pending CXR demonstrated pulmonary vascular congestion US showed bilateral b lines Bedside echo reportedly similar to prior TTE for LV function OSH Interventions: ASA 324 Heparin gtt Plan: Transfer to [facility] Above recommendations/plans are based on my conversation with the referring provider. I have not personally interviewed or examined this patient. Luis Felipe Ott MD Interactive Media Marketing Specialist Received a call from provider emergently at 715am. Mentating well and BP 87/53. HR 108 and diursingwell. They were about to start phenylephrine which I stressed was not a good option given concern for severe and increasing afterload. She is warm on exam, mentating and urinating and we do not need to amrit a BP if those things remain stable. Nico Segura, PGY-6 Interactive Media Marketing Specialist [phone] documented in this encounter Plan of Treatment Upcoming Encounters Date Type Department Care Team (Late st Contact Info) Description 03/01/2025 4:15 PM EDT Office Visit Dermatology at [place] [address] [facility] [place] [address] Marek Bonilla MD [address] [place] [address] documented as of this encounter Visit Diagnoses Not on filedocumented in this encounter Care Teams Glost Kiln Placer Relationship Specialty Start Date End Date Magdalena Acosta MD [address] [place] [address] PCP - General Family Medicine 02/05/23 documented as of this encounter
--- OUTSIDE RECORDS SUMMARY | 2024-03-30 14:30 | XMS_ITS | Encounter Summary ---
Author Organization [facility] [place] [address] Care Team Providers Care Rib Puller Name Role Phone Magdalena Acosta MD Primary Care Provider [phone] Encounter Details Date Type Department Care Team (Late st Contact Info) Description 02/17/2023 2:00 PM EDT Office Visit [place] [address] Alirio Esparza MD Aortic valve stenosis, etiology [...] EDT Office Visit Dermatology at [place] [address] [place] [address] Marek Bonilla MD [address], [place] [address] documented as of this encounter Visit Diagnoses Diagnosis Aortic valve stenosis, etiology of cardiac valve disease unspecified documented in this encounter Care Teams Rib Puller Relationship Specialty Start Date End Date Magdalena Acosta MD [address] [place] [address] PCP - General Family Medicine 02/05/23 documented as of this encounter
--- OUTSIDE RECORDS SUMMARY | 2024-03-30 14:30 | XMS_ITS | Encounter Summary ---
Author Organization [facility] [place] [address] Care Team Providers Care Meals On Wheels Driver Name Role Phone Magdalena Acosta MD Primary Care Provider Reason for Referral * Consultation (Routine) - Closed Specialty Diagnoses / Procedures Referred By Contac t Referred To Contact Rheumatology Diagnoses Weakness Kyra Haas MD [facility] [address] [place] [address] [facility] Rheumatology [address] [place] [phone] Referral ID Status Reason Start Date Expiration Date V isits Requested Visits Authorized [id number] Closed Consult, Test & Treat PCP Updated and/or Approved 02/25/2023 02/25/2024 6 6 Encounter Details Date Type Department Care Team (Late st Contact Info) Description 02/25/2023 Transcribe Orders eDH Incoming Referrals [phone] Magdalena Acosta MD [address] [place] [address] Weakness Social History Tobacco Use [...] 4:15 PM EDT Office Visit Dermatology at [place] [address] [place] [address] Marek Bonilla MD [address], [place] [address] Scheduled Referrals Name Type Priority Associated Diagnoses Order Schedule Referral to Rheumatology Outpatient Referral Routine Weakness Ordered: 02/25/2023 documented as of this encounter Visit Diagnoses Diagnosis Weakness Other malaise and fatigue documented in this encounter Care Teams Meals On Wheels Driver Relationship Specialty Start Date End Date Magdalena Acosta MD [address] [place] [address] PCP - General Family Medicine 02/05/23 documented as of this encounter
--- OUTSIDE RECORDS SUMMARY | 2024-03-30 14:30 | XMS_ITS | Encounter Summary ---
Author Organization [place] [address] Care Team Providers Care Digester Hand Name Role Phone Deborah Quiroga APRN Primary Care Provider [phone] Encounter Details Date Type Department Care Team (Late st Contact Info) Description 11/09/2022 11:30 AM EDT - 11/09/2022 12:30 PM EDT [place] [address] Nitesh Escobedo MD [facility] [address] CARDIAC CATHETERIZATION Social History Tobacco Use Types [...] Center 02/05/2023 2:30 PM Marek Bonilla MD [facility] New Medications to be Picked Up None For questions regarding this document or issues relating to this hospitalization on the Medical Service, please contact your inpatient physician through the [facility] Form Coverer . Issues afterhours and on weekends will be handled by the Hospitalist staff on-call. * Attachments The following attachments cannot be sent through Care Everywhere. * Coronary Angiogram: Post-op ([place]ierra [place]an) * Right Heart Catheterization: Pulmonary Artery Catheterization: Post-op ([place]) documented in this encounter Medications at Time [...] MD - 11/09/2022 11:20 AM EDT . [facility] Interventional Cardiology Adult Pre-Procedure H&P Update: Cardiac Catheterization Purnima Thacker [id number] 1955 Chief Complaint: BONILLA HPI: Purnima Thacker [...] Marrero MD Interventional Cardiology 11/09/22 11:43 AM [facility] Pager: [phone] documented in this encounter Plan of Treatment Upcoming Encounters Date Type Department Care Team (Late st Contact Info) Description 03/01/2025 4:15 PM EDT Office Visit Dermatology at [place] [address] [facility] [place] [address] Marek Bonilla MD [address] [facility], [place] [address] documented as of this encounter Procedures Procedure Name Priority Date/Time Associated Diagnosis Comments CARDIAC CATHETERIZATION Routine 11/10/19 1:05 PM EDT Aortic valve stenosis, etiology of cardiac valve disease unspecified Cath Plmt Left Heart Cath & Arts W/Inj & Angio Img S&I ([id number]) 11/09/2022 11:51 AM EDT Aortic valve stenosis, etiology of cardiac valve disease unspecified EKG 12-LEAD Routine 11/09/2022 11:17 AM EDT Aortic valve stenosis, etiology of cardiac valve disease unspecified documented in this encounter Results * CARDIAC CATHETERIZATION (11/09/2022 1:05 PM EDT) Anatomical Region Laterality Modality Other Narrative 11/09/2022 2:01 PM EDT ?[facility] ? Cardiac Catheterization/Intervention Report ? Patient Name: Kirstie, Purnima M. ? Procedure Date: 11/09/2022 ? A #: [id number] ? Primary Physician: Nitesh Escobedo ? Case #: [id number] ? File Name: [id number] ? Catheterization Order Number: [id number] ? [facility] ? Final Report [place], [place] ? Patient Name: ? Purnima M. Kirstie ? ID#: ?[id number] ? : ?1955 ? Procedure Date: ? [...] (Bezet) 457 ms MUSE SYSTEM Calculated P [place] 44 degrees MUSE SYSTEM Calculated R [place] 33 degrees MUSE SYSTEM Calculated T [place] 30 degrees MUSE SYSTEM INTERPRETATION Sinus rhythm Occasional Premature ventricular complexes Otherwise normal ECG When compared with ECG of 21-SEP-2016 12:26, Premature ventricular complexes are now Present NV interval has decreased Nonspecific T wave abnormality has replaced inverted T waves in Inferior leads I personally reviewed the tracing and edited the fellows interpretation Confirmed by fellow MD Anitha, Carissa ([id number]) on 11/09/2022 6:17:28 PM Confirmed by Elsa [...] MD) documented in this encounter Care Teams Digester Hand Relationship Specialty Start Date End Date Deborah Quiroga, TRANSIT COACH OPERATOR PCP - General Family Medicine 03/24/16 02/04/23 documented as of this encounter
--- OUTSIDE RECORDS SUMMARY | 2024-03-30 14:30 | XMS_ITS | Encounter Summary ---
[place] [address] Care Team Providers Care Oil Refinery Process Technician Name Role Phone Magdalena Acosta MD Primary Care Provider [phone] Reason for Visit * Reason Comments Annual Exam Encounter Details Date Type Department Care Team (Late st Contact Info) Description 02/05/2023 2:30 PM EDT Office Visit Dermatology at [address] [address] Marek Bonilla MD [address] [facility] [place] [address] Rosacea; Ocular rosacea; Nevus Social History Tobacco [...] cutaneous and ocular 2. Previously told by porcelain enamel laborer that she had corneal tears from her [...] PM EDT Office Visit Dermatology at [address] [address] Marek Bonilla MD [address] [facility] [place] [address] documented as of this encounter Visit Diagnoses Diagnosis Rosacea Ocular rosacea Rosacea Nevus Benign neoplasm of skin, site unspecified documented in this encounter Care Teams Oil Refinery Process Technician Relationship Specialty Start Date End Date Magdalena Acosta MD [address] [place] [address] PCP - General Family Medicine 02/05/23 documented as of this encounter
--- OUTSIDE RECORDS SUMMARY | 2024-03-30 14:30 | XMS_ITS | Encounter Summary ---
[place] [address] Care Team Providers Care Tar Heel Name Role Phone Magdalena Acosta MD Primary Care Provider [phone] Encounter Details Date Type Department Care Team [...] PM EDT Office Visit Dermatology at [address] [place] [address] Marek Bonilla MD [address] [facility] [place] [address] documented as of this encounter Visit Diagnoses Not on filedocumented in this encounter Care Teams Tar Heel Relationship Specialty Start Date End Date Magdalena Acosta MD [address] [place] [address] PCP - General Family Medicine 02/05/23 documented as of this encounter
--- OUTSIDE RECORDS SUMMARY | 2024-03-30 14:30 | XMS_ITS | Encounter Summary ---
[place] [address] Care Team Providers Care Branch Mechanic Name Role Phone Magdalena Acosta MD Primary Care Provider [phone] Encounter Details Date Type Department Care Team [...] PM EDT Office Visit Dermatology at [address] [place] [address] Marek Bonilla MD [address] [facility] [place] [address] documented as of this encounter Visit Diagnoses Not on filedocumented in this encounter Care Teams Branch Mechanic Relationship Specialty Start Date End Date Magdalena Acosta MD [address] [place] [address] PCP - General Family Medicine 02/05/23 documented as of this encounter
--- OUTSIDE RECORDS SUMMARY | 2024-03-30 14:30 | XMS_ITS | Encounter Summary ---
Author Organization [facility] [place] [address] Care Team Providers Care Veterinary Medicine Doctor Name Role Phone Deborah Quiroga APRN Primary Care Provider [phone] Reason for Referral * Consultation (Routine) - Closed Specialty Diagnoses / Procedures Referred By Crispin maxwell Referred To Contact Neurology Diagnoses Polyneuropathy Deborah Quiroga APRN [address] [place] [address] [facility] Neurology [address] [place] [phone] Referral ID Status Reason Start Date Expiration Date V isits Requested Visits Authorized [id number] Closed Consult, Test & Treat 10/29/2022 10/29/2023 1 1 Encounter Details Date Type Department Care Team (Latest Contact Info) Description 10/29/2022 Transcribe Orders eDH Incoming Referrals [phone] Deborah Quiroga APRN [address] [place] [address] Polyneuropathy (Primary Dx) Social History [...] 4:15 PM EDT Office Visit Dermatology at [place] [address] [place] [address] Marek Bonilla MD [address] [place] [address] Scheduled Referrals Name Type Priority Associated Diagnoses Orde r Schedule Referral to Neurology Outpatient Referral Routine Polyneuropathy Ordered: 10/29/2022 documented as of this encounter Visit Diagnoses Diagnosis Polyneuropathy- Primary Unspecified hereditary and idiopathic peripheral neuropathy documented in this encounter Care Teams Veterinary Medicine Doctor Relationship Specialty Start Date End Date Deborah Quiroga APRN PCP - General Family Medicine 03/24/16 02/04/23 documented as of this encounter
--- OUTSIDE RECORDS SUMMARY | 2024-03-30 14:30 | XMS_ITS | Encounter Summary ---
[place] [address] Care Team Providers Care Materials Coordinator Name Role Phone Magdalena Acosta MD Primary Care Provider [phone] Encounter Details Date Type Department Care Team [...] PM EDT Office Visit Dermatology at [address] [place] [address] Marek Bonilla MD 580 [facility] [place] [address] documented as of this encounter Visit Diagnoses Not on filedocumented in this encounter Care Teams Materials Coordinator Relationship Specialty Start Date End Date Magdalena Acosta MD [address] [place] [address] PCP - General Family Medicine 02/05/23 documented as of this encounter
--- OUTSIDE RECORDS SUMMARY | 2024-03-30 14:30 | XMS_ITS | Encounter Summary ---
Author Organization [facility] Address [place] [address] Care Team Providers Care Return Checker Name Role Phone Deborah Quiroga ANURAG Primary Care Provider [phone] Encounter Details Date Type Department Care Team (Late st Contact Info) Description 01/14/2023 Refill Dermatology at [address] [address] Lupe Connor RN Social History [...] She would like the medication called into [facility]. Discussed with Dr. Bonilla and he has approved refill of the Doxycycline 50 mg take one capsule by mouth daily in the evenings dispense 30 capsules with 2 refills. Patient notified. documented in this encounter Plan of Treatment Upcoming Encounters Date Type Department Care Team (Late st Contact Info) Description 03/01/2025 4:15 PM EDT Office Visit Dermatology at [place] [address] [facility] [place] [address] Marek Bonilla MD [address] [facility] [address] [place] [address] documented as of this encounter Visit Diagnoses Not on filedocumented in this encounter Care Teams Return Checker Relationship Specialty Start Date End Date Deborah Quiroga APRN PCP - General Family Medicine 03/24/16 02/04/23 documented as of this encounter
--- OUTSIDE RECORDS SUMMARY | 2024-03-30 14:30 | XMS_ITS | Encounter Summary ---
[place] [address] Care Team Providers Care Batch Plant Operator Name Role Phone Magdalena Acosta MD Primary Care Provider [phone] Encounter Details Date Type Department Care Team [...] PM EDT Office Visit Dermatology at [address] [place] [address] Marek Bonilla MD 580 [facility] [place] [address] documented as of this encounter Visit Diagnoses Not on filedocumented in this encounter Care Teams Batch Plant Operator Relationship Specialty Start Date End Date Magdalena Acosta MD [address] [place] [address] PCP - General Family Medicine 02/05/23 documented as of this encounter
--- OUTSIDE RECORDS SUMMARY | 2024-03-30 14:30 | XMS_ITS | Encounter Summary ---
Author Organization [facility] [place] [address] Care Team Providers Care Staff Sonographer Name Role Phone Magdalena Acosta MD Primary Care Provider [phone] Encounter Details Date Type Department Care Team (Latest Contact Info) Description 02/05/2023 9:33 PM EDT - 02/05/2023 11:59 PM EDT [place] [address] Discharge Disposition: Home Social History Tobacco Use [...] 4:15 PM EDT Office Visit Dermatology at [place] [address] [place] [address] Marek Bonilla MD [address] [facility] [place] [address] documented as of this encounter Procedures Procedure Name Priority Date/Time Associated Diagnosis Comments SURGICAL PATHOLOGY REPORT Routine 02/05/2023 3:00 PM EDT documented in this encounter Results * Surgical Pathology Report (02/05/2023 3:00 PM EDT) Final Diagnosis [id number] ? Location: [facility] The signing pathologist has (i) examined the relevant preparation(s) for the specimen(s) and (ii) rendered or confirmed the diagnosis(es). . ?Surgical Pathology DIAGNOSIS Left upper back, skin punch biopsy: - ??Compound dysplastic ??melanocytic nevus with moderate atypia, transected at peripheral specimen edges ?? (see discussion) Electronically signed by: ?Vanna CULP, Jesse Shields Verified: ??02/16/2023 8:04 ?? Dermatopathologist Performed at: ??-[facility] Dept. of Pathology, [place] [address] American Indian Studies Professor: Kunal Rubi MD, FCAP, ??CLIA Certificate: [id number] DISCUSSION If there is an obvious clinical [...] labeled A1. ??sns 02/16/2023 8:04 AM EDT [facility] SPECIMEN FROM SKIN / Unknown 02/05/2023 3:00 PM EDT 02/05/2023 3:00 PM EDT Marek Bonilla MD PATHOLOGY/CYTOLOGY O RDERABLES [facility] [place] [address] [facility] [place] [address] documented in this encounter Visit Diagnoses Not on filedocumented in this encounter Care Teams Staff Sonographer Relationship Specialty Start Date End Date Magdalena Acosta MD [address] [place] [address] PCP - General Family Medicine 02/05/23 documented as of this encounter
--- OUTSIDE RECORDS SUMMARY | 2024-03-30 14:30 | XMS_ITS | Encounter Summary ---
[place] [address] Care Team Providers Care Lepidopterist Name Role Phone Magdalena Acosta MD Primary Care Provider [phone] Reason for Visit * Reason Comments Skin Lesion Encounter Details Date Type Department Care Team (Late st Contact Info) Description 04/20/2023 10:00 AM EDT Office Visit Dermatology at [address] [address] Marek Bonilla MD 580 [facility] [place] [address] Seborrheic keratosis Social History Tobacco Use Types [...] cutaneous and ocular 3. Previously told by brine tank separator operator that she had corneal tears from [...] 4:15 PM EDT Office Visit Dermatology at [place] [address] [facility] [address] Marek Bonilla MD [address] [place] [address] documented as of this encounter Visit Diagnoses Diagnosis Seborrheic keratosis Other seborrheic keratosis documented in this encounter Care Teams Lepidopterist Relationship Specialty Start Date End Date Magdalena Acosta MD [address] [place] [address] PCP - General Family Medicine 02/05/23 documented as of this encounter
--- OUTSIDE RECORDS SUMMARY | 2024-03-30 14:30 | XMS_ITS | Encounter Summary ---
Author Organization [facility] [place] [address] Care Team Providers Care Parts Sales Advisor Name Role Phone Deborah Quiroga APRN Primary Care Provider [phone] Encounter Details Date Type Department Care Team (Late st Contact Info) Description 11/02/2022 Orders [place] [address] Emily Lyons PA [facility] [place] [address] Aortic valve stenosis, etiology of cardiac valve [...] 4:15 PM EDT Office Visit Dermatology at [place] [address] [place] [address] Marek Bonilla MD [address] [place] [address] documented as of this encounter Visit Diagnoses Diagnosis Aortic valve stenosis, etiology of cardiac valve disease unspecified documented in this encounter Care Teams Parts Sales Advisor Relationship Specialty Start Date End Date Deborah Quiroga APRN PCP - General Family Medicine 03/24/16 02/04/23 documented as of this encounter
--- OUTSIDE RECORDS SUMMARY | 2024-03-30 14:30 | XMS_ITS | Encounter Summary ---
Author Organization [facility] Address [facility] [place] [address] Care Team Providers Care Facilities Technician Name Role Phone Magdalena Acosta MD Primary Care Provider [phone] Encounter Details Date Type Department Care Team (Late st Contact Info) Description 03/29/2023 Orders Only Cardiology at [address] [phone] Ranjan Delgado MD [facility] [place] [address] Severe aortic stenosis (Primary Dx) Social History [...] 4:15 PM EDT Office Visit Dermatology at [place] [address] [facility] [place] [address] Marek Bonilla MD 580 [facility], [place] [address] Scheduled Orders Name Type Priority [...] disorders documented in this encounter Care Teams Facilities Technician Relationship Specialty Start Date End Date Magdalena Acosta MD [address] [place] [address] PCP - General Family Medicine 02/05/23 documented as of this encounter
--- OUTSIDE RECORDS SUMMARY | 2024-03-30 14:30 | XMS_ITS | Encounter Summary ---
[place] [address] Care Team Providers Care Childcare Attendant Name Role Phone Magdalena Acosta MD Primary Care Provider [phone] Encounter Details Date Type Department Care Team [...] PM EDT Office Visit Dermatology at [address] [place] [address] Marek Bonilla MD 580 [facility], [place] [address] documented as of this encounter Visit Diagnoses Not on filedocumented in this encounter Care Teams Childcare Attendant Relationship Specialty Start Date End Date Magdalena Acosta MD [address] [place] [address] PCP - General Family Medicine 02/05/23 documented as of this encounter
--- OUTSIDE RECORDS SUMMARY | 2024-03-30 14:30 | XMS_ITS | Encounter Summary ---
Author Organization [facility] Address [facility] [place] [address] Care Team Providers Care Field Reviewer Name Role Phone Dbeorah Quiroga APRN Primary Care Provider [phone] Encounter Details Date Type Department Care Team (Latest Contact Info) Description 07/03/2022 1:36 PM EST - 07/03/2022 11:59 PM EST Hospital Encounter Hematology [place] [address] Discharge Disposition: Home Social History Tobacco Use [...] 4:15 PM EDT Office Visit Dermatology at [place] 580 [place] [address] Marek Bonilla MD 580 [facility], [address] [place] [address] documented as of this encounter Procedures Procedure Name Priority Date/Time Associated Diagnosis Comments FOLATE, SERUM Routine 07/03/2022 1:59 PM EST VITAMIN B12 Routine 07/03/2022 1:59 PM EST documented in this encounter Results * Folate, serum (07/03/2022 1:59 PM EST) Folate >20.0 4.8 - 24.2 ng/mL [facility] Blood Venous Draw / Unknown 07/03/2022 1:59 PM EST 07/03/2022 2:13 PM EST Narrative Resulting Agency Comment Spec In Lab Markel Borjas MD CHEMISTRY ORDERABL ES Performing Organization Address City/[facility]/ZIP Co de Phone Number [facility] [place] [address] * Vitamin B12 (07/03/2022 1:59 PM EST) Vitamin B12 449 232 - 1,245 pg/mL [facility] Blood Venous Draw / Unknown 07/03/2022 1:59 PM EST 07/03/2022 2:13 PM EST Narrative Resulting Agency Comment Spec In Lab Markel Borjas MD CHEMISTRY ORDERABL ES Performing Organization Address [facility]/[place] [address] documented in this encounter Visit Diagnoses Not on filedocumented in this encounter Care Teams Field Reviewer Relationship Specialty Start Date End Date Deborah Quiroga APRN PCP - General Family Medicine 03/24/16 02/04/23 documented as of this encounter
--- OUTSIDE RECORDS SUMMARY | 2024-03-30 14:30 | XMS_ITS | Encounter Summary ---
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 documented in this encounter Plan of Treatment Upcoming Encounters Date Type Department Care Team (Late st Contact Info) Description 03/01/2025 4:15 PM EDT Office Visit Dermatology at [place] [address] [facility] [place] [address] Marek Bonilla MD [address] [facility] [address], [place] [address] documented as of this encounter Visit Diagnoses Not on filedocumented in this encounter Care Teams Lockstitcher Relationship Specialty Start Date End Date Magdalena Acosta MD [address] [place] [address] PCP - General Family Medicine 02/05/23 documented as of this encounter
--- OUTSIDE RECORDS SUMMARY | 2024-03-30 14:30 | XMS_ITS | Encounter Summary ---
[place] [address] Care Team Providers Care Freight Adjuster Name Role Phone Magdalena Acosta MD Primary Care Provider [phone] Encounter Details Date Type Department Care Team [...] PM EDT Office Visit Dermatology at [address] [place] [address] Marek Bonilla MD 580 [facility], [place] [address] documented as of this encounter Visit Diagnoses Not on filedocumented in this encounter Care Teams Freight Adjuster Relationship Specialty Start Date End Date Magdalena Acosta MD [address] [place] [address] PCP - General Family Medicine 02/05/23 documented as of this encounter
--- OUTSIDE RECORDS SUMMARY | 2024-03-30 14:30 | XMS_ITS | Encounter Summary ---
Author Organization [facility] [place] [address] Care Team Providers Care Warp Hand Name Role Phone Junaid Deborah Shields APRN Primary Care Provider [phone] Encounter Details Date Type Department Care Team (Latest Contact Info) Description 11/09/2022 10:37 AM EDT - 11/09/2022 4:53 PM EDT Hospital Encounter [place] [address] Nitesh Escobedo MD [facility] [place] [address] Aortic valve stenosis, etiology of cardiac valve [...] 02/05/2023 2:30 PM Marek Bonilla MD [facility] New Medications to be Picked Up None For questions regarding this document or issues relating to this hospitalization on the Medical Service, please contact your inpatient physician through the [facility] Flight Operations Inspector . Issues afterhours and on weekends will be handled by the Hospitalist staff on-call. * Attachments The following attachments cannot be sent through Care Everywhere. * Coronary Angiogram: Post-op (Maldivian) * Right Heart Catheterization: Pulmonary Artery Catheterization: Post-op (Maldivian) documented in this encounter Medications at Time [...] 11/09/2022 11:20 AM EDT . [facility] Interventional Cardiology Adult Pre-Procedure H&P Update: Cardiac Catheterization Purnima Thacker [id number] 1955 Chief Complaint: BONILLA HPI: Purnima Thacker [...] Interventional Cardiology 11/09/22 11:43 AM [facility] Pager: [phone] documented in this encounter Plan of Treatment Upcoming Encounters Date Type Department Care Team (Late st Contact Info) Description 03/01/2025 4:15 PM EDT Office Visit Dermatology at [place] [address] [place] [address] Marek Bonilla MD [address], [place] [address] documented as of this encounter Procedures Procedure Name Priority Date/Time Associated Diagnosis Comments CARDIAC CATHETERIZATION Routine 11/10/19 1:05 PM EDT Aortic valve stenosis, etiology of cardiac valve disease unspecified Cath Plmt Left Heart Cath & Arts W/Inj & Angio Img S&I ([id number]) 11/09/2022 11:51 AM EDT Aortic valve stenosis, etiology of cardiac valve disease unspecified EKG 12-LEAD Routine 11/09/2022 11:17 AM EDT Aortic valve stenosis, etiology of cardiac valve disease unspecified documented in this encounter Results * CARDIAC CATHETERIZATION (11/09/2022 1:05 PM EDT) Anatomical Region Laterality Modality Other Narrative 11/09/2022 2:01 PM EDT ?[facility] ? Cardiac Catheterization/Intervention Report ? Patient Name: Purnima Thacker. ? Procedure Date: 11/09/2022 ? A #: [id number] ? Primary Physician: Nitesh Escobedo ? Case #: [id number] ? File Name: [id number] ? Catheterization Order Number: [id number] ? [facility] ? Final Report [place], [place] ? Patient Name: ? Purnima M. Kirstie ? ID#: ?[id number] ? : ?1955 ? Procedure Date: ? [...] was designated as ASA Class III. The [facility] clinical frailty scale ?is 4: Vulnerable. [...] (Bezet) 457 ms MUSE SYSTEM Calculated P [place] 44 degrees MUSE SYSTEM Calculated R [place] 33 degrees MUSE SYSTEM Calculated T [place] 30 degrees MUSE SYSTEM INTERPRETATION Sinus rhythm Occasional Premature ventricular complexes Otherwise normal ECG When compared with ECG of 21-SEP-2016 12:26, Premature ventricular complexes are now Present OR interval has decreased Nonspecific T wave abnormality has replaced inverted T waves in Inferior leads I personally reviewed the tracing and edited the fellows interpretation Confirmed by fellow MD Welsh Hanyuan ([id number]) on 11/09/2022 6:17:28 PM Confirmed by Elsa [...] MD) documented in this encounter Care Teams Warp Hand Relationship Specialty Start Date End Date Deborah Quiroga, SOFTWARE PRODUCT MANAGER PCP - General Family Medicine 03/24/16 02/04/23 documented as of this encounter
--- OUTSIDE RECORDS SUMMARY | 2024-03-30 14:30 | XMS_ITS | Encounter Summary ---
[place] [address] Care Team Providers Care Service Order Taker Name Role Phone Magdalena Acosta MD Primary Care Provider [phone] Encounter Details Date Type Department Care Team (Latest Contact Info) Description 03/18/2023 2:30 PM EDT Laboratory Appointment Lab [address] [phone] Positive FRANCISCO (antinuclear antibody) Social History Tobacco [...] 4:15 PM EDT Office Visit Dermatology at [place] [address] [facility] [place] [phone] Marek Bonilla MD [address] [facility] [address], [place] [address] documented as of this encounter Procedures Procedure [...] 2:14 PM EDT) Neutrophil % 71.2 % [facility] Neutrophil Absolute 2.26 1.70 - 6.10 x10(3)/mc L [facility] Lymph % 18.2 % [facility] Lymphocytes Abs 0.6(L) 0.9 - 3.2 x10(3)/mc L [facility] Monocyte % 9.7 % [facility] Monocyte Abs 0.3 0.3 - 0.9 x10(3)/mc L [facility] Eos % 0.3 % [facility] Eosinophils Abs 0.0 0.0 - 0.4 x10(3)/mc L [facility] Basophil % 0.6 % [facility] Baso Absolute 0.0 0.0 - 0.1 x10(3)/[facility] Immature Gran % 0.00 % [facility] Comment: Immature granulocytes(IG's)percentage and absolute count will include metamyelocytes, myelocytes, and promyelocytes. Blood smears from CBCs yielding IG's will be scanned manually for concordance. If this scan disagrees with the automated IG or if promyelocytes are noted, a manual differential will be performed. Immature Gran Absolute 0.00 0.00 - 0.04 x10(3)/[facility] Blood 03/18/2023 2:14 PM EDT 03/18/2023 2:24 PM EDT Narrative Resulting Agency Comment Spec In Lab Magdalena Peralta MD HEMATOLOGY ORDERABLE S Performing Organization Address City/State/[facility] Co de Phone Number [facility] [place] [address] * (ABNORMAL) Hemogram (03/18/2023 2:14 PM EDT) White Blood Cell 3.2(L) 4.0 - 9.5 x10(3)/[facility] Red Blood Cell 3.44(L) 4.00 - 5.21 x10(6)/[facility] Hemoglobin 11.1(L) 11.7 - 15.5 g/dL [facility] Hematocrit 32.9(L) 35.7 - 45.8 % [facility] Mean Cell Volume 95.6(H) 82.6 - 94.4 fL [facility] Mean Cell Hemoglobin 32.3(H) 27.1 - 32.0 pg [facility] Mean Cell Hemoglobin Concentration 33.7 31.7 - 35.0 g/dL [facility] Platelet 144(L) 145 - 357 x10(3)/[facility] RDW Standard Deviation 42.6 37.0 - 46.0 fL [facility] RDW coefficient of variation 12.3 11.5 - 14.1 % [facility] Mean Platelet Volume 9.4 7.6 - 12.9 fL [facility] NRBC% auto 0.0 % [facility] NRBC Absolute 0.000 0.000 - 0.000 x10(3)/mc L [facility] Blood 03/18/2023 2:14 PM EDT 03/18/2023 2:24 PM EDT Narrative Resulting Agency Comment Spec In Lab Magdalena Peralta MD HEMATOLOGY ORDERABLE S Performing Organization Address [facility] Co de Phone Number [facility] [place] [address] * (ABNORMAL) Sedimentation rate (03/18/2023 2:14 PM EDT) Sedimentation Rate Automated 68(H) 2 - 39 mm/hr [facility] Comment: Effective July 12, 2019 new capillary photometric technology has resulted in a change in reference ranges. It is recommended that each ESR result be reviewed with its own age appropriate reference range. Blood 03/18/2023 2:14 PM EDT 03/18/2023 2:24 PM EDT Narrative Resulting Agency Comment Spec In Lab Kia Viramontes DO HEMATOLOGY ORDERAB LES Performing Organization Address [facility] Co de Phone Number [facility] [place] [address] * CRP, acute inflammation (03/18/2023 2:14 PM EDT) C-Reactive Protein 3.0 <=4.9 mg/L [facility] Blood 03/18/2023 2:14 PM EDT 03/18/2023 2:24 PM EDT Narrative Resulting Agency Comment Spec In Lab Kia Viramontes DO CHEMISTRY ORDERABL ES Performing Organization Address [facility] Co de Phone Number [facility] [place] [address] * C3 Complement (03/18/2023 2:14 PM EDT) Complement C3 142 90 - 180 mg/dL [facility] Blood 03/18/2023 2:14 PM EDT 03/18/2023 2:24 PM EDT Narrative Resulting Agency Comment Spec In Lab Kia Viramontes DO CHEMISTRY ORDERABL ES Performing Organization Address [facility] de Phone Number [facility] [place] [address] * C4 Complement (03/18/2023 2:14 PM EDT) Complement C4 30 10 - 40 mg/dL [facility] Blood 03/18/2023 2:14 PM EDT 03/18/2023 2:24 PM EDT Narrative Resulting Agency Comment Spec In Lab Kia Viramontes DO CHEMISTRY ORDERABL ES Performing Organization Address [facility] de Phone Number [facility] [place] [address] * CK (03/18/2023 2:14 PM EDT) Creatine Kinase 38 0 - 160 unit/L [facility] Blood 03/18/2023 2:14 PM EDT 03/18/2023 2:24 PM EDT Narrative Resulting Agency Comment Spec In Lab Kia Viramontes DO CHEMISTRY ORDERABL ES Performing Organization Address [facility] de Phone Number [facility] [place] [address] * DNA Antibody (Double-Stranded) (03/18/2023 2:14 PM EDT) dsDNA Ab <0.6 <=15.0 IU/mL [facility] Comment: <10 negative 10-15 equivocal >15 positive This dsDNA antibody result was generated using a fluoroenzyme immunoassay on the Octopusapp 250 analyzer. This quantitative test is designed to detect IgG antibodies directed against double stranded DNA in human serum. The presence of antibodies that recognize dsDNA is a highly specific marker for systemic lupus erythematosus. Please note that as of 05/26/2022 that this testing is performed by the Special Chemistry Laboratory at [facility]. This change in testing location is associated with a change is testing method and reference intervals. Please review the results of this test in association with the posted reference intervals. Blood 03/18/2023 2:14 PM EDT 03/19/2023 7:19 AM EDT Narrative Resulting Agency Comment Spec In Lab Kia Viramontes DO LAB SEND OUT ORDER JODIE [facility] [place] [address] * (ABNORMAL) FRANCISCO Ab by IFA (03/18/2023 2:14 PM EDT) FRANCISCO Ab Screen Test ? Result ?Flag ??Unit ??RefValue Antinuclear Ab, HEp-2 ?Positive 1:2560 ??@ ?<1:80 (Negative) ??Substrate, S ? ADDITIONAL INFORMATION --------- ?Method: Immunofluorescence using HEp-2 cellular substrate. ??FRANCISCO Titer: ? 1:2560 ??FRANCISCO Pattern: ? Speckled ?Test Performed by: ?[facility] ?[address] [place] [address] ?Emergency Services Dispatcher: Raymond Chaudhry M.D. Ph.D.; CLIA# [id number] ([id number]) [facility] Blood 03/18/2023 2:14 PM EDT 03/18/2023 3:02 PM EDT Narrative Resulting Agency Comment Spec In Lab Kia James Wander DO CHEMISTRY ORDERABL ES [facility] [place] [address] * Comprehensive metabolic panel (non-fasting) (03/18/2023 2:14 PM EDT) Glucose 93 65 - 199 mg/dL [facility] Comment:Diabetes: >=200 mg/d L plus symptoms Blood Urea Nitrogen 18 8 - 18 mg/dL [facility] Creatinine 0.99 0.70 - 1.20 mg/dL [facility] Sodium 141 135 - 145 mmol/L [facility] Potassium 4.5 3.5 - 5.0 mmol/L [facility] Comment: Please note: ??Patients with WBC >100,000 may have falsely elevated Potassium levels. ??For accurate Potassium quantification in these patients send serum separator tube (gold top) for subsequent determinations. ??Contact the Clinical Chemistry Laboratory if there are any questions. Chloride 106 98 - 107 mmol/L [facility] Carbon Dioxide 24 22 - 31 mmol/L [facility] Anion Gap 11 5 - 15 mmol/L [facility] Calcium 10.0 8.5 - 10.5 mg/dL [facility] Protein, Total 7.3 6.1 - 8.0 g/dL [facility] Albumin 4.3 3.2 - 5.2 g/dL [facility] Aspartate Aminotransferase 26 0 - 30 unit/L [facility] Alanine Aminotransferase 11 0 - 30 unit/L [facility] Alkaline Phosphatase 91 35 - 105 unit/L [facility] Bilirubin, Total 0.4 0.2 - 1.3 mg/dL [facility] Est Glomerular Filtration Rate 62 >=60 mL/min/1. 73 m?? [facility] Comment: This patient's estimated [...] DO CHEMISTRY ORDERABL ES Performing Organization Address City/State/[facility] [place] [address] documented in this encounter Visit Diagnoses Diagnosis Positive FRANCISCO (antinuclear antibody) Other and unspecified nonspecific immunological findings documented in this encounter Care Teams Service Order Taker Relationship Specialty Start Date End Date Magdalena Acosta MD [address] [place] [address] PCP - General Family Medicine 02/05/23 documented as of this encounter
--- OUTSIDE RECORDS SUMMARY | 2024-03-30 14:31 | XMS_ITS | Encounter Summary ---
Author [place] [address] Care Team Providers Care Child Caregiver Private Home Name Role Phone Deborah Quiroga APRN Primary Care Provider [phone] Encounter Details Date Type Department Care Team (Late st Contact Info) Description 06/05/2021 Interpretation Only [address] [address] Deborah Quiroga FIELD MARKETING ASSOCIATE [address] [phone] Social History Tobacco Use Types Packs/Day Years [...] 4:15 PM EDT Office Visit Dermatology at [place] [address] [facility] [address] Marek Bonilla MD [address] [facility], [place] [address] documented as of this encounter Procedures Procedure Name Priority Date/Time Associated Diagnosis Comments MAMMO SCREENING CAD AND CATRACHITO BILATERAL Routine 06/05/2021 11:42 AM EDT documented in this encounter Results * Mammo Screening Cad and Catrachito Bilateral (06/05/2021 11:42 AM EDT) PT CLASS O DH RAD ADMITDTTM DH RAD PT DH RAD INFO [id number]^EVERET T^DEBORAH^E DH RAD EXAM DESC MADDSCTO^BREAST SCREEN [...] have questions please contact the health healthcare associate that requested your imaging first. ? Narrative [...] who have questions please contactthe health healthcare associate that requested your imaging first. Deborah Quiroga APRN IMG MAMMO ORDERABLE S documented in this encounter Visit Diagnoses Not on filedocumented in this encounter Care Teams Child Caregiver Private Home Relationship Specialty Start Date End Date Debroah Quiroga APRN PCP - General Family Medicine 03/24/16 02/04/23 documented as of this encounter
--- OUTSIDE RECORDS SUMMARY | 2024-03-30 14:31 | XMS_ITS | Encounter Summary ---
[place] [address] Care Team Providers Care Clinical Audiologist Name Role Phone Deborah Quiroga APRN Primary Care Provider [phone] Reason for Referral * Consultation (Routine) - Closed Specialty Diagnoses / Procedures Referred By Contac t Referred To Contact Rheumatology Diagnoses Positive FRANCISCO (antinuclear antibody) Arthralgia, unspecified joint Sandy Wu APRN [address] [place] [address] [facility] [address] [place] [address] Referral ID Status Reason Start Date Expiration Date V isits Requested Visits Authorized [id number] Closed Consult, Test & Treat PCP Updated and/or Approved 01/01/2022 01/01/2023 6 6 Encounter Details Date Type Department Care Team (Latest Contact Info) Description 01/01/2022 Transcribe Orders eDH Incoming Referrals [phone] Sandy Wu APRN [address] [place], [place] [phone] Positive FRANCISCO (antinuclear antibody); Arthralgia, unspecified joint [...] 4:15 PM EDT Office Visit Dermatology at [place] [address] [facility] [place] [address] Marek Bonilla MD [address] [place] [address] Scheduled Referrals Name Type Priority Associated Diagnoses Orde r Schedule Referral to Rheumatology Outpatient Referral Routine Positive FRANCISCO (antinuclear antibody) Arthralgia, unspecified joint Ordered: 01/01/2022 documented as of this encounter Visit Diagnoses Diagnosis Positive FRANCISCO (antinuclear antibody) Other and unspecified nonspecific immunological findings Arthralgia, unspecified joint documented in this encounter Care Teams Clinical Audiologist Relationship Specialty Start Date End Date Deborah Quiroga APRN PCP - General Family Medicine 03/24/16 02/04/23 documented as of this encounter
--- OUTSIDE RECORDS SUMMARY | 2024-03-30 14:31 | XMS_ITS | Encounter Summary ---
[place] [address] Care Team Providers Care Chargeback Specialist Name Role Phone Ashley Quirogan Cornelius ANURAG Primary Care Provider [phone] Reason for Visit * Reason Comments Acrochordon Rosacea Encounter Details Date Type Department Care Team (Late st Contact Info) Description 12/05/2020 3:00 PM EDT Office Visit Dermatology at [address] [address] Marek Bonilla MD [address] [facility], [place] [address] Inflamed acrochordon Social History Tobacco Use Types [...] 4:15 PM EDT Office Visit Dermatology at [place] [address] [place] [address] Marek Bonilla MD [address] [facility], [facility] [place] [address] documented as of this encounter Visit Diagnoses Diagnosis Inflamed acrochordon Unspecified hypertrophic and atrophic condition of skin documented in this encounter Care Teams Chargeback Specialist Relationship Specialty Start Date End Date Deborah Quiroga APRN PCP - General Family Medicine 03/24/16 02/04/23 documented as of this encounter
--- OUTSIDE RECORDS SUMMARY | 2024-03-30 14:31 | XMS_ITS | Encounter Summary ---
[place] [address] Care Team Providers Care Breast Splitter Name Role Phone Junaid, Deborah Shields APRN Primary Care Provider [phone] Encounter Details Date Type Department Care Team (Late st Contact Info) Description 10/20/2016 11:20 AM EDT Office Visit [place] [phone] Alirio Esparza MD S/P AVR Social History [...] all of her postoperative tests done at [facility]. Her echo shows a well-seated valve. Her EF, for some reason, was read as in the 45% to 50% range. She had a normal EF to start. I think that will need to be repeated at [facility]. She has no perivalve leak. [...] should continue to see Dr. Burrell, her shuttle operator at [facility]. cc: Dr. Burrell documented in this encounter Plan of Treatment Upcoming Encounters Date Type Department Care Team (Late st Contact Info) Description 03/01/2025 4:15 PM EDT Office Visit Dermatology at [place] [address] [facility] [place] [phone] Marek Bonilla MD 580 [facility], [place] [address] documented as of this encounter Visit Diagnoses Diagnosis S/P AVR Heart valve replaced by other means documented in this encounter Care Teams Breast Splitter Relationship Specialty Start Date End Date Deborah Quiroga APRN PCP - General Family Medicine 03/24/16 02/04/23 documented as of this encounter
--- OUTSIDE RECORDS SUMMARY | 2024-03-30 14:31 | XMS_ITS | Encounter Summary ---
[place] [address] Care Team Providers Care Chairman Emeritus Name Role Phone Ashley Quirogan Cornelius ANURAG Primary Care Provider [phone] Reason for Visit * Reason Comments Skin Check Encounter Details Date Type Department Care Team (Late st Contact Info) Description 11/11/2020 10:45 AM EDT Office Visit Dermatology at [address] [place] [address] Marek Bonilla MD 580 [facility], [facility] [facility] DERMATOLOGY [place], [place] [id number] Rosacea; Acrochordon Social History Tobacco Use Types [...] Discussed the possibility of getting this through [facility] or from the [facility] pharmacy if necessary. She has not yet [...] 4:15 PM EDT Office Visit Dermatology at [place] [address] [facility] [place] [address] Marek Bonilla MD 580 [facility], [place] [address] documented as of this encounter Visit Diagnoses Diagnosis Rosacea Acrochordon Unspecified hypertrophic and atrophic condition of skin documented in this encounter Care Teams Chairman Emeritus Relationship Specialty Start Date End Date Deborah Quiroga APRN PCP - General Family Medicine 03/24/16 02/04/23 documented as of this encounter
--- OUTSIDE RECORDS SUMMARY | 2024-03-30 14:31 | XMS_ITS | Encounter Summary ---
Author Organization [facility] Address [facility] [place] [address] Care Team Providers Care Line Therapist Name Role Phone Deborah Quiroga APRN Primary Care Provider [phone] Encounter Details Date Type Department Care Team (Late st Contact Info) Description 03/01/2020 11:30 AM EDT Office Visit Hematology [place] [phone] Patrick Borjas MD [facility] [address] [place] [address] Neutropenia, unspecified type Social History Tobacco Use [...] 03/01/2020 11:30 AM EDT Hematology Outpatient Clinic [facility] Hematology Outpatient Consult Note CC: 60 [...] TOUCH PREP, CLOT SECTION, CORE ??BIOPSY); [OSR# [id number], COLLECTED 06/23/2016, 19 SLIDES]: ?1. 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 Extremities: No edema. Labs: Hgb= 12.4 Dhde=911 ANC= 2.5 Imaging As above - reviewed [...] PM EDT Office Visit Dermatology at [address] [address] Marek Bonilla MD 580 [facility], [place] [address] documented as of this encounter Visit Diagnoses Diagnosis Neutropenia, unspecified type documented in this encounter Care Teams Line Therapist Relationship Specialty Start Date End Date Deborah Quiroga APRN PCP - General Family Medicine 03/24/16 02/04/23 documented as of this encounter
--- OUTSIDE RECORDS SUMMARY | 2024-03-30 14:31 | XMS_ITS | Encounter Summary ---
[place] [address] Care Team Providers Care Manufacturing Intern Name Role Phone Deborah Quiroga APRN Primary Care Provider [phone] Encounter Details Date Type Department Care Team [...] PM EDT Office Visit Dermatology at [address] [place] [address] Marek Bonilla MD [address] [facility] [address], [place] [address] documented as of this encounter Visit Diagnoses Not on filedocumented in this encounter Care Teams Manufacturing Intern Relationship Specialty Start Date End Date Deborah Quiroga APRN PCP - General Family Medicine 03/24/16 02/04/23 documented as of this encounter
--- OUTSIDE RECORDS SUMMARY | 2024-03-30 14:31 | XMS_ITS | Encounter Summary ---
[place] [address] Care Team Providers Care Bass Mechanism Maker Name Role Phone Deborah Quiroga APRN Primary Care Provider [phone] Encounter Details Date Type Department Care Team (Late st Contact Info) Description 06/05/2021 Interpretation Only [address] [address] Deborah Quiroga REMOTE SENSING ADVISOR [address] [id number] Social History Tobacco Use Types Packs/Day Years [...] 4:15 PM EDT Office Visit Dermatology at [place] 580 [facility] [place] [address] Marek Bonilla MD [address] [facility], [place] [address] documented as of this encounter Procedures Procedure Name Priority Date/Time Associated Diagnosis Comments DXA CENTRAL SPINE, HIP, AND/OR WHOLE BODY (GENERIC) Routine 06/05/2021 11:58 AM EDT documented in this encounter Results * DXA Central Spine, Hip, and/or Whole Body (Generic) (06/05/2021 11:58 AM EDT) PT CLASS O RAD ADMITDTTM RAD PT RAD INFO [id number]^E VERETT^DEBORAH ^E RAD EXAM DESC XDXAC^DEXA SCAN AXIAL^[facility] Anatomical Region Laterality Modality C-spine, Hip N/A [...] who have questions please contact the health reservoir caretaker that requested your imaging first. ? Electronically signed by: Rocael Villatoro MD, [facility] ([phone]), at 06/05/2021 12:00 PM Narrative 06/05/2021 12:00 [...] patients who have questions please contactthe health reservoir caretaker that requested your imaging first. Deborah Quiroga APRN IMGerman DEXA ORDERABLES documented in this encounter Visit Diagnoses Not on filedocumented in this encounter Care Teams Bass Mechanism Maker Relationship Specialty Start Date End Date Deborah Quiroga APRN PCP - General Family Medicine 03/24/16 02/04/23 documented as of this encounter
--- OUTSIDE RECORDS SUMMARY | 2024-03-30 14:31 | XMS_ITS | Encounter Summary ---
[place] [address] Care Team Providers Care Electro Mechanical Assembler Name Role Phone Ashley Quirogan Cornelius ANURAG Primary Care Provider [phone] Reason for Visit * Reason Onset Date Comments Medical Care Coordination 07/27/2017 Encounter Details Date Type Department Care Team (Late st Contact Info) Description 07/27/2017 Telephone Hematology [place] [phone] Alexandrea Greenwood RN Medical Care Coordination Social [...] 07/27/2017 12:25 PM EST Message received from hospital secretary: Injection/Infusion Referral Call placed to [facility] @ [phone] Spoke w/ FURNACE OPERATOR Services to be provided for pt are: CBC/CMP DONE Q6 MONTHS X2 STARTING NOVEMBER 2017 TECH confirmed they would provide services to pt - I CALLED PT, LM. Pt orders faxed to [phone] documented in this encounter Plan of Treatment Upcoming Encounters Date Type Department Care Team (Late st Contact Info) Description 03/01/2025 4:15 PM EDT Office Visit Dermatology at [place] [address] [facility] [place] [phone] Marek Bonilla MD [address] [facility] [address] [address], [place] [address] documented as of this encounter Visit Diagnoses Not on filedocumented in this encounter Care Teams Electro Mechanical Assembler Relationship Specialty Start Date End Date Deborah Quiroga APRN PCP - General Family Medicine 03/24/16 02/04/23 documented as of this encounter
--- OUTSIDE RECORDS SUMMARY | 2024-03-30 14:31 | XMS_ITS | Encounter Summary ---
Author Organization [facility] Address [facility] [place] [place] [address] Care Team Providers Care Environmental Science Instructor Name Role Phone Deborah Quiroga APRN Primary Care Provider [phone] Encounter Details Date Type Department Care Team (Late st Contact Info) Description 02/06/2020 Orders Only Hematology [place] [address] Markel Borjas MD [facility] [address] [place] [address] Neutropenia, unspecified type Social History Tobacco Use [...] 4:15 PM EDT Office Visit Dermatology at [place] [address] [place] [phone] Marek Bonilla MD [address] [address], [place] [address] documented as of this encounter Visit Diagnoses Diagnosis Neutropenia, unspecified type documented in this encounter Care Teams Environmental Science Instructor Relationship Specialty Start Date End Date Deborah Quiroga APRN PCP - General Family Medicine 03/24/16 02/04/23 documented as of this encounter
--- OUTSIDE RECORDS SUMMARY | 2024-03-30 14:31 | XMS_ITS | Encounter Summary ---
Author Organization [facility] Address [facility] [place] [address] Care Team Providers Care Computing Consultant Name Role Phone Deborah Quiroga APRN Primary Care Provider [phone] Reason for Visit * Reason Comments Follow-up Encounter Details Date Type Department Care Team (Late st Contact Info) Description 07/03/2022 1:30 PM EST Office Visit Hematology [place] [address] Markel Borjas MD [facility] [address] [place] [address] Consuelo Sommer APRN [facility] [address] [place] [address] Chronic idiopathic neutropenia; Dysuria Social History Tobacco [...] 07/03/2022 1:30 PM EST Hematology Outpatient Clinic [facility] Hematology Outpatient Consult Note CC: 60 [...] TOUCH PREP, CLOT SECTION, CORE ??BIOPSY); [OSR# [id number], COLLECTED 06/23/2016, 19 SLIDES]: ?1. 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 Extremities: No edema. Labs: Hgb= 11.7 Byga=143 ANC= 2.5 Imaging As above - reviewed [...] 4:15 PM EDT Office Visit Dermatology at [place] 580 [place] [address] Marek Bonilla MD 580 [facility], [place] [address] documented as of this encounter Procedures Procedure [...] tract infection, submit a new specimen. (A) [facility] Clean Catch Urine 07/03/2022 2:00 PM EST 07/03/2022 5:55 PM EST Narrative Resulting Agency Comment Spec In Lab Markel Borjas MD MICROBIOLOGY - GEN ERAL ORDERABLES Performing Organization Address [facility] de Phone Number [facility] [place] [address] * (ABNORMAL) Urinalysis Microscopic Exam (07/03/2022 2:00 PM EST) RBC, Urine 2 0 - 4 /HPF [facility] WBC, Urine 14(H) 0 - 5 /HPF [facility] Bacteria, Urine Occasional (A) None /HPF [facility] Squamous Epithelial Cells Raw Data, Urine 12(H) <=4 /HPF [facility] Hyaline Casts, Urine 2 0 - 2 /LPF [facility] Clean Catch Urine 07/03/2022 2:00 PM EST 07/03/2022 2:29 PM EST Narrative Resulting Agency Comment Spec In Lab Markel Borjas MD URINE ORDERABLES Performing Organization Address [facility] de Phone Number [facility] [place] [address] * (ABNORMAL) Urinalysis with reflex Culture (07/03/2022 2:00 PM EST) Glucose, Urine Dipstick Negative Negative mg/dL [facility] Protein, Urine Dipstick 30(A) Negative mg/dL [facility] Bilirubin, Urine Dipstick Negative Negative mg/dL [facility] Comment: Clinical correlation required for positive Urine Bilirubin results as false positive may occur with some drugs and drug related products. If a false positive is suspected a serum total bilirubin should be considered if clinically indicated. Urobilinogen, Urine Dipstick Normal Normal mg/dL [facility] pH, Urn (dipstick) 5.5 5.0 - 8.0 [facility] Blood, Urine Dipstick Negative Negative mg/dL [facility] Ketone, Urine Dipstick Trace(A) Negative mg/dL [facility] Nitrite, Urine Dipstick Negative Negative [facility] Leukocytes, Urine Dipstick Small(A) Negative [facility] Appearance, Urine Dipstick Clear Clear [facility] Specific [place] Urine Automated 1.022 1.005 - 1.030 [facility] Color, Urine Dipstick Yellow Yellow [facility] Reflex to Culture Yes [facility] Clean Catch Urine 07/03/2022 2:00 PM EST 07/03/2022 2:29 PM EST Narrative Resulting Agency Comment Spec In Lab Markel Borjas MD URINE ORDERABLES [facility] [place] [address] * (ABNORMAL) Comprehensive metabolic panel (non-fasting) (07/03/2022 12:40 PM EST) Glucose 92 65 - 199 mg/dL [facility] Comment:Diabetes: >=200 mg/d L plus symptoms Blood Urea Nitrogen 22(H) 8 - 18 mg/dL [facility] Creatinine 0.80 0.70 - 1.20 mg/dL [facility] Sodium 139 135 - 145 mmol/L [facility] [...] questions. Chloride 105 98 - 107 mmol/L [facility] Carbon Dioxide 23 22 - 31 mmol/L [facility] Anion Gap 11 5 - 15 mmol/L [facility] Calcium 10.1 8.5 - 10.5 mg/dL [facility] Protein, Total 7.6 6.1 - 8.0 g/dL [facility] Albumin 4.1 3.2 - 5.2 g/dL [facility] Aspartate Aminotransferase 25 0 - 30 unit/L [facility] Alanine Aminotransferase 14 0 - 30 unit/L [facility] Alkaline Phosphatase 80 35 - 105 unit/L [facility] Bilirubin, Total 0.3 0.2 - 1.3 mg/dL [facility] Est Glomerular Filtration Rate 81 >=60 mL/min/1. 73 m?? [facility] [...] Lab Markel Borjas MD CHEMISTRY ORDERABL ES [facility] [place] [address] documented in this encounter Visit Diagnoses Diagnosis Chronic idiopathic neutropenia Other neutropenia Dysuria documented in this encounter Care Teams Computing Consultant Relationship Specialty Start Date End Date Deborah Quiroga APRN PCP - General Family Medicine 03/24/16 02/04/23 documented as of this encounter
--- OUTSIDE RECORDS SUMMARY | 2024-03-30 14:31 | XMS_ITS | Encounter Summary ---
Author Organization [facility] Address [place] [address] Care Team Providers Care Pit Operator Name Role Phone Deborah Quiroga APRN Primary Care Provider [phone] Encounter Details Date Type Department Care Team (Latest Contact Info) Description 07/03/2022 12:28 PM EST - 07/03/2022 1:35 PM EST Hospital Encounter Hematology [place] [address] Chronic idiopathic neutropenia Discharge Disposition: Home Social [...] 4:15 PM EDT Office Visit Dermatology at [place] [address] [facility] [place] [phone] Marek Bonilla MD [address], [place] [address] documented as of this encounter Procedures Procedure [...] (ABNORMAL) Differential, Automated (07/03/2022 12:40 PM EST) [facility] Neutrophil % 72.9 % [facility] Neutrophil Absolute 2.61 1.70 - 6.10 x10(3)/[facility] Lymph % 18.4 % [facility] Lymphocytes Abs 0.7(L) 0.9 - 3.2 x10(3)/[facility] Monocyte % 8.4 % [facility] Monocyte Abs 0.3 0.3 - 0.9 x10(3)/[facility] Eos % 0.0 % [facility] Eosinophils Abs 0.0 0.0 - 0.4 x10(3)/[facility] Basophil % 0.3 % [facility] Baso Absolute 0.0 0.0 - 0.1 x10(3)/[facility] Immature Gran % 0.00 % [facility] Comment: Immature granulocytes(IG's)percentage and absolute count will include metamyelocytes, myelocytes, and promyelocytes. Blood smears from CBCs yielding IG's will be scanned manually for concordance. If this scan disagrees with the automated IG or if promyelocytes are noted, a manual differential will be performed. Immature Gran Absolute 0.00 0.00 - 0.04 x10(3)/[facility] Blood 07/03/2022 12:4 0 PM EST 07/03/2022 1:03 PM EST Narrative Resulting Agency Comment Spec In Lab Markel Borjas MD HEMATOLOGY ORDERAB LES [facility] [place] [address] * (ABNORMAL) Hemogram (07/03/2022 12:40 PM EST) White Blood Cell 3.6(L) 4.0 - 9.5 x10(3)/[facility] Red Blood Cell 3.61(L) 4.00 - 5.21 x10(6)/mc L [facility] Hemoglobin 11.7 11.7 - 15.5 g/dL [facility] Hematocrit 34.5(L) 35.7 - 45.8 % [facility] Mean Cell Volume 95.6(H) 82.6 - 94.[address] [facility] Mean Cell Hemoglobin 32.4(H) 27.1 - 32.[address] [facility] Mean Cell Hemoglobin Concentration 33.9 31.7 - 35.0 g/dL [facility] Platelet 171 145 - 357 x10(3)/mc L [facility] RDW Standard Deviation 40.5 37.0 - 46.[address] [facility] RDW coefficient of variation 11.5 11.5 - 14.1 % [facility] Mean Platelet Volume 9.2 7.6 - 12.9 [facility] NRBC% auto 0.0 % [facility] NRBC Absolute 0.000 0.000 - 0.000 x10(3)/mc L [facility] Blood 07/03/2022 12:4 0 PM EST 07/03/2022 1:03 PM EST Narrative Resulting Agency Comment Spec In Lab Markel Borjas MD HEMATOLOGY ORDERAB LES [facility] [place] [address] * (ABNORMAL) Comprehensive metabolic panel (non-fasting) (07/03/2022 12:40 PM EST) Glucose 92 65 - 199 mg/dL [facility] Comment:Diabetes: >=200 mg/d L plus symptoms Blood Urea Nitrogen 22(H) 8 - 18 mg/dL [facility] Creatinine 0.80 0.70 - 1.20 mg/dL [facility] Sodium 139 135 - 145 mmol/L [facility] [...] questions. Chloride 105 98 - 107 mmol/L [facility] Carbon Dioxide 23 22 - 31 mmol/L [facility] Anion Gap 11 5 - 15 mmol/L [facility] Calcium 10.1 8.5 - 10.5 mg/dL [facility] Protein, Total 7.6 6.1 - 8.0 g/dL [facility] Albumin 4.1 3.2 - 5.2 g/dL [facility] Aspartate Aminotransferase 25 0 - 30 unit/L [facility] Alanine Aminotransferase 14 0 - 30 unit/L [facility] Alkaline Phosphatase 80 35 - 105 unit/L [facility] Bilirubin, Total 0.3 0.2 - 1.3 mg/dL [facility] Est Glomerular Filtration Rate 81 >=60 mL/min/1. 73 m?? [facility] Comment: This patient's estimated GFR [...] Lab Markel Borjas MD CHEMISTRY ORDERABL ES [facility] [place] [address] documented in this encounter Visit Diagnoses Diagnosis Chronic idiopathic neutropenia Other neutropenia documented in this encounter Care Teams Pit Operator Relationship Specialty Start Date End Date Deborah Quiroga APRN PCP - General Family Medicine 03/24/16 02/04/23 documented as of this encounter
--- OUTSIDE RECORDS SUMMARY | 2024-03-30 14:31 | XMS_ITS | Encounter Summary ---
[place] [address] Care Team Providers Care Entry Driver Operator Name Role Phone Ashley Quirogazac Shields APRN Primary Care Provider [phone] Reason for Visit * Reason Comments Annual Exam Encounter Details Date Type Department Care Team (Late st Contact Info) Description 01/09/2022 3:15 PM EDT Office Visit Dermatology at [address] [address] Marek Bnoilla MD [address] [facility], [address] DERMATOLOGY [place], [place] [phone] Rosacea Social History Tobacco Use Types Packs/Day [...] cutaneous and ocular 2. Previously told by poolroom table attendant that she had corneal tears from [...] refills. We will call this into her [facility] in [place] 3. Continue metronidazole 0.75% gel applying every other day after washing as needed. We will give her 45 g with 5 refills. 4. Return to clinic in a year for repeat check CC: Deborah Quiroga APRN documented in this encounter Plan of Treatment Upcoming Encounters Date Type Department Care Team (Late st Contact Info) Description 03/01/2025 4:15 PM EDT Office Visit Dermatology at [place] [address] [facility] [place] [address] Marek Bonilla MD [address] [facility], [place] [address] documented as of this encounter Visit Diagnoses Diagnosis Rosacea documented in this encounter Care Teams Entry Driver Operator Relationship Specialty Start Date End Date Deborah Quiroga APRN PCP - General Family Medicine 03/24/16 02/04/23 documented as of this encounter
--- OUTSIDE RECORDS SUMMARY | 2024-03-30 14:31 | XMS_ITS | Encounter Summary ---
Author Organization [facility] Address [facility] Erika [facility] [place] [address] Care Team Providers Care Upper Lining Cementer Name Role Phone Deborah Quiroga APRN Primary Care Provider [phone] Reason for Visit * Consultation (Routine) - Closed Specialty Diagnoses / Procedures Referred By Contkrystle t Referred To Contact Rheumatology Diagnoses Positive FRACNISCO (antinuclear antibody) Arthralgia, unspecified joint Sandy Wu APRN [address] [place] [address] [facility] Rheumatology [address] [place] [address] Referral ID Status Reason Start Date Expiration Date V isits Requested Visits Authorized [id number] Closed Consult, Test & Treat PCP Updated and/or Approved 01/01/2022 01/01/2023 6 6 Encounter Details Date Type Department Care Team (Latest Contact Info) Description 01/20/2022 10:00 AM EDT Office [place] [address] Raymond Loredo MD [facility] [place] [address] Rosacea; Raynaud's phenomenon without gangrene; [...] over radiocarpal or ulnocarpal joints. Hands: Normal marketing development specialist and claw. SJC/TJC 0/0. Hips: Full motion, [...] can be done locally or here at [facility] that the current time is not particularly interested it seems Raymond Loredo MD documented in this encounter Plan of Treatment Upcoming Encounters Date Type Department Care Team (Late st Contact Info) Description 03/01/2025 4:15 PM EDT Office Visit Dermatology at [place] [address] [facility] [place] [address] Marek Bonilla MD [address], [address] [place] [address] Scheduled Referrals Name Type Priority Associated Diagnoses [...] syndrome documented in this encounter Care Teams Upper Lining Cementer Relationship Specialty Start Date End Date Deborah Quiroga APRN PCP - General Family Medicine 03/24/16 02/04/23 documented as of this encounter
--- OUTSIDE RECORDS SUMMARY | 2024-03-30 14:31 | XMS_ITS | Encounter Summary ---
[place] [address] Care Team Providers Care Ed Physicians Name Role Phone Deborah Quiroga APRN Primary Care Provider [phone] Encounter Details Date Type Department Care Team (Late st Contact Info) Description 03/04/2020 External Results Hematology [place] [address] Theroux, Bhumi Cornelius Social History Tobacco Use [...] 4:15 PM EDT Office Visit Dermatology at [place] [address] [facility] [place] [address] Marek Bonilla MD [address], [place] [address] documented as of this encounter Procedures Procedure [...] Provider CHEMISTRY ORDERAB LES Performing Organization Address City/[facility]/ZIP Co de Phone Number EXTERNAL [...] Provider CHEMISTRY ORDERAB LES Performing Organization Address City/[facility]/ZIP Co de Phone Number EXTERNAL [...] on filedocumented in this encounter Care Teams Ed Physicians Relationship Specialty Start Date End Date Deborah Quiroga, SOOT BLOWER PCP - General Family Medicine 03/24/16 02/04/23 documented as of this encounter
--- OUTSIDE RECORDS SUMMARY | 2024-03-30 14:31 | XMS_ITS | Encounter Summary ---
Author Organization [facility] Address [facility] [place] [address] Care Team Providers Care A R Collections Rep Name Role Phone Junaid Deborah Shields APRN Primary Care Provider [phone] Encounter Details Date Type Department Care Team (Latest Contact Info) Description 06/22/2022 10:00 AM EST Office [place] [phone] Raymond Loredo MD [facility] [place] [address] Raynaud's phenomenon without gangrene; Positive FRANCISCO (antinuclear [...] be done locally or here at [facility] that the current time is [...] for surgery by Dr. Rogers here at [facility]. In addition to painful dysesthesias [...] over radiocarpal or ulnocarpal joints. Hands: Normal crate builder and claw. SJC/TJC 0/0. Knees: Decreased flexion [...] 4:15 PM EDT Office Visit Dermatology at [place] [address] [facility] [place] [address] Marek Bonilla MD [address] [facility] [place] [address] documented as of this encounter Visit Diagnoses Diagnosis Raynaud's phenomenon without gangrene Positive FRANCISCO (antinuclear antibody) Other and unspecified nonspecific immunological findings Primary osteoarthritis involving multiple joints Cervical disc disorder at C6-C7 level with radiculopathy documented in this encounter Care Teams A R Collections Rep Relationship Specialty Start Date End Date Deborah Quiroga APRN PCP - General Family Medicine 03/24/16 02/04/23 documented as of this encounter
--- OUTSIDE RECORDS SUMMARY | 2024-03-30 14:31 | XMS_ITS | Encounter Summary ---
Author Organization [facility] Address [facility] [place] [address] Care Team Providers Care Pipe Installer Name Role Phone Deborah Quiroga APRN Primary Care Provider [phone] Encounter Details Date Type Department Care Team (Late st Contact Info) Description 06/18/2017 11:00 AM EST Office Visit Hematology [place] [address] Markel Borjas MD [facility] [address] [place] [address] Neutropenia, unspecified type Social History Tobacco Use [...] 06/18/2017 11:00 AM EST Hematology Outpatient Clinic [facility] Hematology Outpatient Consult Note [...] TOUCH PREP, CLOT SECTION, CORE ??BIOPSY); [OSR# [id number], COLLECTED 06/23/2016, 19 SLIDES]: ?1. ??Normocellular marrow [...] a clonal lymphoproliferative or myeloproliferative disorder (OSR# [id number]) Chromosome analysis on the marrow aspirate revealed [...] working the same job and participating in [employer] patients. Past Medical/Surgical History: 1. Leukopenia -element of neutropenia, as noted above 2. Aortic Stenosis -severe -AVR surgery 3. Hypercholesterolemia 4. Depression 5. Hypertension 6. 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 Extremities: No edema. Labs: Hgb= 13 Ppos=221 ANC= 0.6 Imaging As above - reviewed [...] 4:15 PM EDT Office Visit Dermatology at [place] [address] [place] [address] Marek Bonilla MD [address], [place] [address] documented as of this encounter Visit Diagnoses Diagnosis Neutropenia, unspecified type documented in this encounter Care Teams Pipe Installer Relationship Specialty Start Date End Date Deborah Quiroga APRN PCP - General Family Medicine 03/24/16 02/04/23 documented as of this encounter
--- OUTSIDE RECORDS SUMMARY | 2024-03-30 14:31 | XMS_ITS | Encounter Summary ---
[place] [address] Care Team Providers Care Rubber Stamp Assembler Name Role Phone Deborah Quiroga APRN Primary Care Provider [phone]- [phone] Encounter Details Date Type Department Care Team [...] PM EDT Office Visit Dermatology at [address] [place] [address] Marek Bonilla MD [address], [place] [address] documented as of this encounter Visit Diagnoses Not on filedocumented in this encounter Care Teams Rubber Stamp Assembler Relationship Specialty Start Date End Date Deborah Quiroga APRN PCP - General Family Medicine 03/24/16 02/04/23 documented as of this encounter
--- OUTSIDE RECORDS SUMMARY | 2024-03-30 14:31 | XMS_ITS | Encounter Summary ---
[place] [address] Care Team Providers Care Chair Lift Operator Name Role Phone Deborah Quiroga APRN Primary Care Provider [phone]- [phone] Encounter Details Date Type Department Care Team (Late st Contact Info) Description 01/13/2021 Refill Dermatology at [address] [phone] Taylor Malone, DOCUMENTATION SPEC Social History Tobacco Use Types Packs/Day Years [...] PM EDT Office Visit Dermatology at [address] [phone] Marek Bonilla MD [address] [facility] [place] [address] documented as of this encounter Visit Diagnoses Not on filedocumented in this encounter Care Teams Chair Lift Operator Relationship Specialty Start Date End Date Deborah Quiroga APRN PCP - General Family Medicine 03/24/16 02/04/23 documented as of this encounter
--- OUTSIDE RECORDS SUMMARY | 2024-03-30 14:31 | XMS_ITS | Encounter Summary ---
[place] [address] Care Team Providers Care Finance Accounting Internship Name Role Phone Deborah Quiroga APRN Primary Care Provider [phone] Encounter Details Date Type Department Care Team (Latest Contact Info) Description 10/14/2016 - 10/14/2016 11:59 PM EDT Hospital Encounter [place] [phone] Alirio Esparza MD Pain Discharge Disposition: Home [...] 4:15 PM EDT Office Visit Dermatology at [place] [address] [facility] [place] [address] Marek Bonilla MD [address], [place] [address] documented as of this encounter Procedures Procedure Name Priority Date/Time Associated Diagnosis Comments FILM LIBRARY STORAGE ONLY DX CHEST Routine 10/14/2016 12:00 AM EDT Pain documented in this encounter Results * Film Library- Storage Only DX Chest (10/14/2016 12:00 AM EDT) Narrative [facility] - 10/14/2016 5:16 PM EDT This exam is for storage only and is auto-finalizing. Alirio Esparza MD IMG FILM LIBRARY OR DERABLES [place], [place] documented in this encounter Visit Diagnoses Diagnosis Pain Generalized pain documented in this encounter Care Teams Finance Accounting Internship Relationship Specialty Start Date End Date Deborah Quiroga APRN PCP - General Family Medicine 03/24/16 02/04/23 documented as of this encounter
--- OUTSIDE RECORDS SUMMARY | 2024-03-30 14:31 | XMS_ITS | Encounter Summary ---
Author Organization [facility] Address [facility] [place] [address] Care Team Providers Care Engineer Fishing Vessel Name Role Phone Ashley Quirogazac Shields APRN Primary Care Provider [phone] Reason for Referral * Consultation (Routine) - Closed Specialty Diagnoses / Procedures Referred By Contac t Referred To Contact Neurology Diagnoses Neck pain Popeye Rogers MD [facility] [place] [address] Kyra Haas MD [facility] [address] [address] Referral ID Status Reason Start Date Expiration Date V isits Requested Visits Authorized [id number] Closed Consult, Test & Treat 06/29/2022 06/29/2023 1 1 Reason for Visit * Reason Comments Neck Pain Weak in both arms, p ain and tingling in arms and hands Encounter Details Date Type Department Care Team (Late st Contact Info) Description 06/29/2022 10:20 AM EST Office Visit [place] [address] Popeye Rogers MD [facility] [place] [address] Neck pain Social History Tobacco Use Types [...] have EMG and nerve conduction studies in [place] that showed carpal tunnel syndrome. I do not have a copy of that report. documented in this encounter Plan of Treatment Upcoming Encounters Date Type Department Care Team (Late st Contact Info) Description 03/01/2025 4:15 PM EDT Office Visit Dermatology at [place] [address] [facility] [place] [address] Marek Bonilla MD [address], [place] [address] Scheduled Referrals Name Type Priority Associated Diagnoses Orde r Schedule Referral to Neurology Outpatient Referral Routine Neck pain Ordered: 06/29/2022 documented as of this encounter Visit Diagnoses Diagnosis Neck pain Cervicalgia documented in this encounter Care Teams Engineer Fishing Vessel Relationship Specialty Start Date End Date Deborah Quiroga APRN PCP - General Family Medicine 03/24/16 02/04/23 documented as of this encounter
--- OUTSIDE RECORDS SUMMARY | 2024-03-30 14:31 | XMS_ITS | Encounter Summary ---
Author Organization [facility] Address [facility] [place] [address] Care Team Providers Care Motor Scooter Mechanic Name Role Phone Junaid Deborah Shields APRN Primary Care Provider [phone] Reason for Visit * Reason Comments Schedule Office Case Pain right leg Encounter Details Date Type Department Care Team (Late st Contact Info) Description 12/11/2016 9:00 AM EDT Office Visit Hematology [place] [address] Markel Borjas MD [facility] [address] [place] [address] Neutropenia, unspecified type Social History Tobacco Use [...] 12/11/2016 9:00 AM EDT Hematology Outpatient Clinic [facility] Hematology Outpatient Consult Note CC: [id number] [...] TOUCH PREP, CLOT SECTION, CORE ??BIOPSY); [OSR# [id number], COLLECTED 06/23/2016, 19 SLIDES]: ?1. 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 Extremities: No edema. Labs: Hgb= 13 Iyfy=686 ANC= 0.5 Imaging As above - reviewed [...] 4:15 PM EDT Office Visit Dermatology at [place] 580 [place] [address] Marek Bonilla MD [address] [facility], [place] [address] documented as of this encounter Results * [...] documented in this encounter Care Teams Motor Scooter Mechanic Relationship Specialty Start Date End Date Deborah Quiroga, STRATIGRAPHER PCP - General Family Medicine 03/24/16 02/04/23 documented as of this encounter
--- OUTSIDE RECORDS SUMMARY | 2024-03-30 14:31 | XMS_ITS | Encounter Summary ---
Author Organization [facility] [place] [address] Care Team Providers Care Day Care Aide Name Role Phone Ashley Quirogan Sylvia ANURGA Primary Care Provider [phone] Encounter Details Date Type Department Care Team (Late st Contact Info) Description 12/04/2016 External Results H[place]ology [place] [address] Teresa Dodson, RN Social History Tobacco Use [...] EDT Office Visit Dermatology at [place] [address] [facility] [place] [address] Marek Bonilla MD [address], [place] [address] documented as of this encounter Procedures Procedure Name Priority Date/Time Associated Diagnosis Comments CBC (WITH DIFF) Routine 12/03/2016 11:35 AM EDT COMPREHENSIVE METABOLIC PANEL Routine 12/03/2016 11:35 AM EDT documented in this encounter Results * (ABNORMAL) Comprehensive metabolic panel (non-fasting) (12/03/2016 11:35 AM EDT) Glucose 85(Industrial Electrician al Lab) Blood Urea Nitrogen 11(Industrial Electrician al Lab) Creatinine 0.93(Exte rnal Lab) Sodium 140(Exter nal Lab) Potassium 4.2(Exter nal Lab) Chloride 104(Exter nal Lab) Calcium 10.0(Exte rnal Lab) Protein, Total 8.1(Exter nal Lab) Albumin 3.5(Exter nal Lab) Bilirubin, Total 0.25(Exte rnal Lab) Alkaline Phosphatase 96(Industrial Electrician al Lab) Aspartate Aminotransferase 18(Industrial Electrician al Lab) Alanine Aminotransferase 21(Industrial Electrician al Lab) Blood specimen (specimen) 12/03/2016 11:35 AM EDT Historical Provider CHEMISTRY ORDERAB LES * (ABNORMAL) CBC (with Diff) (12/03/2016 11:35 AM EDT) White Blood Cell 1.61(EXTER NAL/ABN) 4.4 - 10.8 Hemoglobin 13.0(Exter nal Lab) Hematocrit 39.8(Exter nal Lab) Platelet 248(Industrial Electrician al Lab) ANC 0.5(SUPERVISOR PAPER COATING AL/ABN) Blood specimen (specimen) 12/03/2016 11:35 AM EDT Historical Provider HEMATOLOGY ORDERA BLES documented in this encounter Visit Diagnoses Not on filedocumented in this encounter Care Teams Day Care Aide Relationship Specialty Start Date End Date Deborah Quiroga APRN PCP - General Family Medicine 03/24/16 02/04/23 documented as of this encounter
--- OUTSIDE RECORDS SUMMARY | 2024-03-30 14:31 | XMS_ITS | Encounter Summary ---
[place] [address] Care Team Providers Care Computer Numerical Control Programmer Name Role Phone Deborah Quiroga ANURAG Primary Care Provider [phone] Encounter Details Date Type Department Care Team (Late st Contact Info) Description 06/18/2017 External Results H[place] [address] Alexandrea Greenwood RN Neutropenia, unspecified type Social [...] 4:15 PM EDT Office Visit Dermatology at [place] [address] [facility] [address] [place] [address] Marek Bonilla MD [address], [place] [address] documented as of this encounter Procedures Procedure [...] type documented in this encounter Care Teams Computer Numerical Control Programmer Relationship Specialty Start Date End Date Deborah Quiroga APRN PCP - General Family Medicine 03/24/16 02/04/23 documented as of this encounter
--- OUTSIDE RECORDS SUMMARY | 2024-03-30 14:31 | XMS_ITS | Encounter Summary ---
[place] [address] Care Team Providers Care Intertype Operator Name Role Phone Deborah Quiroga APRN Primary Care Provider [phone]- [phone] Encounter Details Date Type Department Care Team [...] PM EDT Office Visit Dermatology at [address] [place] [address] Marek Bonilla MD [address], [place] [address] documented as of this encounter Visit Diagnoses Not on filedocumented in this encounter Care Teams Intertype Operator Relationship Specialty Start Date End Date Deborah Quiroga APRN PCP - General Family Medicine 03/24/16 02/04/23 documented as of this encounter
--- OUTSIDE RECORDS SUMMARY | 2024-03-30 14:31 | XMS_ITS | Encounter Summary ---
[place] [address] Care Team Providers Care Driver Salesman Name Role Phone Deborah Quiroga APRN Primary Care Provider [phone]- [phone] Encounter Details Date Type Department Care Team (Late st Contact Info) Description 11/11/2020 Refill Dermatology at [address] [phone] Taylor Malone, FELT CARBONIZER Social History Tobacco Use Types Packs/Day Years [...] PM EDT Office Visit Dermatology at [address] [phone] Marek Bonilla MD [address] [facility], [place] [address] documented as of this encounter Visit Diagnoses Not on filedocumented in this encounter Care Teams Driver Salesman Relationship Specialty Start Date End Date Deborah Quiroga APRN PCP - General Family Medicine 03/24/16 02/04/23 documented as of this encounter
--- OUTSIDE RECORDS SUMMARY | 2024-03-30 14:31 | XMS_ITS | Encounter Summary ---
[place] [address] Care Team Providers Care Tire Trimmer Hand Name Role Phone Junaid Deborah Shields APRN Primary Care Provider [phone] Reason for Visit * Reason Comments Follow-up Encounter Details Date Type Department Care Team (Late st Contact Info) Description 01/10/2021 4:30 PM EDT Office Visit Dermatology at [place] [address] [facility] [place] [address] Marek Bonilla MD [address] [facility], [place] A DERMATOLOGY [place], [place] [address] Rosacea Social History Tobacco Use Types Packs/Day [...] cutaneous and ocular 2. Previously told by chip unloader that she had corneal tears from her [...] 3 refills. Will call this in her [facility] in [place] 3. Continue metronidazole 0.75% gel applying once [...] PM EDT Office Visit Dermatology at [address] [address] Marek Bonilla MD [address] [facility], [place] [address] documented as of this encounter Visit Diagnoses Diagnosis Rosacea documented in this encounter Care Teams Tire Trimmer Hand Relationship Specialty Start Date End Date Deborah Quiroga APRN PCP - General Family Medicine 03/24/16 02/04/23 documented as of this encounter
--- OUTSIDE RECORDS SUMMARY | 2024-03-30 14:31 | XMS_ITS | Encounter Summary ---
Author Organization [facility] [place] [address] Care Team Providers Care Liquid Fertilizer Servicer Name Role Phone Deborah Quiroga APRN Primary Care Provider [phone]- [phone] Encounter Details Date Type Department Care Team (Late st Contact Info) Description 06/08/2022 Ancillary Procedure [place] [phone] Deborah Quiroga, PEST CONTROLLER ASSISTANT [address] [address] Social History Tobacco Use Types Packs/Day Years [...] PM EDT Office Visit Dermatology at [place] [address] [facility] [place] [address] Marek Bonilla MD [address] [facility], [place] [address] documented as of this encounter Procedures Procedure [...] FILM LIBRARY OR DERABLES Performing Organization Address City/State/[facility] Co de Phone Number [place], [place] documented in this encounter Visit Diagnoses Not on filedocumented in this encounter Care Teams Liquid Fertilizer Servicer Relationship Specialty Start Date End Date Deborah Quiroga APRN PCP - General Family Medicine 03/24/16 02/04/23 documented as of this encounter
--- OUTSIDE RECORDS SUMMARY | 2024-03-30 14:31 | XMS_ITS | Encounter Summary ---
[place] [address] Care Team Providers Care Sound Cutter Name Role Phone Deborah Quirgoa APRN Primary Care Provider Encounter Details Date Type Department Care Team (Late st Contact Info) Description 07/21/2017 Orders Only Hematology [place] [address] Alexandrea Greenwood RN Other neutropenia Social History [...] 4:15 PM EDT Office Visit Dermatology at [place] [address] [facility] [address] [place] [address] Marek Bonilla MD [address], [place] [address] documented as of this encounter Visit Diagnoses Diagnosis Other neutropenia documented in this encounter Care Teams Sound Cutter Relationship Specialty Start Date End Date Deborah Quiroga APRN PCP - General Family Medicine 03/24/16 02/04/23 documented as of this encounter
--- OUTSIDE RECORDS SUMMARY | 2024-03-30 14:31 | XMS_ITS | Encounter Summary ---
[place] [address] Care Team Providers Care Information Technology Security Analyst Name Role Phone Deborah Quiroga APRN Primary Care Provider [phone]- [phone] Encounter Details Date Type Department Care Team (Late st Contact Info) Description 06/05/2021 Interpretation Only [address] [address] Deborah Quiroga TAR POT MAN [address] [id number] Social History Tobacco Use Types Packs/Day Years [...] 4:15 PM EDT Office Visit Dermatology at [place] [address] [facility] [place] [address] Marek Bonilla MD [address] [facility], [place] [address] documented as of this encounter Procedures Procedure Name Priority Date/Time Associated Diagnosis Comments MAMMO SCREENING CAD BILATERAL Routine 06/05/2021 11:42 AM EDT documented in this encounter Results * Mammo Screening Cad Bilateral (06/05/2021 11:42 AM EDT) PT CLASS O DH RAD ADMITDTTM DH RAD PT RAD INFO [id number]^EV ERETT^DEBORAH^E DH RAD EXAM DESC MADDSC^SCREEN MAMMO [...] on filedocumented in this encounter Care Teams Information Technology Security Analyst Relationship Specialty Start Date End Date Deborah Quiroga APRN PCP - General Family Medicine 03/24/16 02/04/23 documented as of this encounter
--- OUTSIDE RECORDS SUMMARY | 2024-03-30 14:31 | XMS_ITS | Encounter Summary ---
Author Organization [facility] Address [facility] [place] [address] Care Team Providers Care Biomedical Engineering Supervisor Name Role Phone Deborah Quiroga ANURAG Primary Care Provider [phone] Encounter Details Date Type Department Care Team (Late Contact Info) Description 02/07/2020 Telephone Hematology [place] [phone] Ellen Rios RN Social History Tobacco Use [...] 02/07/2020 12:59 PM EDT Message received from clinical secretary: Injection/Infusion Referral Services to be provided for pt are: CBC only at [facility]- Pt will go by 02/27 Orders faxed to [phone]). Spoke with pt. She will call [facility] directly to schedule a time that works for her. documented in this encounter Plan of Treatment Upcoming Encounters Date Type Department Care Team (Late Contact Info) Description 03/01/2025 4:15 PM EDT Office Visit Dermatology at [address] [address] Marek Bonilla MD [address], [place] [address] documented as of this encounter Visit Diagnoses Not on filedocumented in this encounter Care Teams Biomedical Engineering Supervisor Relationship Specialty Start Date End Date Deborah Quiroga APRN PCP - General Family Medicine 03/24/16 02/04/23 documented as of this encounter
--- OUTSIDE RECORDS SUMMARY | 2024-03-30 14:31 | XMS_ITS | Encounter Summary ---
[place] [address] Care Team Providers Care Ground Support Agent Name Role Phone Deborah Quiroga APRN Primary Care Provider [phone] Encounter Details Date Type Department Care Team (Late st Contact Info) Description 01/09/2022 Refill Dermatology at [address] [phone] Lupe Connor RN Social History Tobacco Use [...] PM EDT Office Visit Dermatology at [address] [phone] Marek Bonilla MD [address] [facility], [place] [address] documented as of this encounter Visit Diagnoses Not on filedocumented in this encounter Care Teams Ground Support Agent Relationship Specialty Start Date End Date Deborah Qiuroga APRN PCP - General Family Medicine 03/24/16 02/04/23 documented as of this encounter
--- OUTSIDE RECORDS SUMMARY | 2024-03-30 14:31 | XMS_ITS | Encounter Summary ---
Author Organization [facility] [place] [address] Care Team Providers Care Security System Sales Consultant Name Role Phone Ashley Quirogan [place] ANURAG Primary Care Provider [phone] Reason for Visit * Reason Onset Date Comments Results 12/03/2016 Encounter Details Date Type Department Care Team (Late Contact Info) Description 12/03/2016 Telephone Hematology [place] [phone] Yudith Valentine RN Results Social History Tobacco [...] the full results to this office for sales consultant notified DR Borjas of above results documented in this encounter Plan of Treatment Upcoming Encounters Date Type Department Care Team (Late st Contact Info) Description 03/01/2025 4:15 PM EDT Office Visit Dermatology at [address] [phone] Marek Bonilla MD [address], [place] [address] documented as of this encounter Visit Diagnoses Not on filedocumented in this encounter Care Teams Security System Sales Consultant Relationship Specialty Start Date End Date Deborah Quiroga APRN PCP - General Family Medicine 03/24/16 02/04/23 documented as of this encounter
--- OUTSIDE RECORDS SUMMARY | 2024-03-30 14:31 | XMS_ITS | Encounter Summary ---
[place] [address] Care Team Providers Care Investment Specialist Name Role Phone Deborah Quiroga APRN Primary Care Provider Encounter Details Date Type Department Care Team (Late st Contact Info) Description 06/17/2022 Ancillary Procedure [place]iology [place] [phone] Deborah Quiroga, BACK WEDGER [address] [address] Social History Tobacco Use Types Packs/Day Years [...] 4:15 PM EDT Office Visit Dermatology at [place] [address] [facility] [place] [phone] Marek Bonilla MD [address] [facility], [place] [address] documented as of this encounter Procedures Procedure [...] FILM LIBRARY OR DERABLES Performing Organization Address City/State/[facility] Co de Phone Number [place], [place] documented in this encounter Visit Diagnoses Not on filedocumented in this encounter Care Teams Investment Specialist Relationship Specialty Start Date End Date Deborah Quiroga APRN PCP - General Family Medicine 03/24/16 02/04/23 documented as of this encounter
--- OUTSIDE RECORDS SUMMARY | 2024-03-30 14:32 | XMS_ITS | Encounter Summary ---
[place] [address] Care Team Providers Care Graphic Illustrator Name Role Phone Ashley Quirogan Cornelius ANURAG Primary Care Provider [phone] Encounter Details Date Type Department Care Team (Late st Contact Info) Description 07/03/2016 External Results Hematology [place] [address] Matthew Cervantes, DO [address] [place] [address] Social History Tobacco Use Types Packs/Day Years [...] PM EDT Office Visit Dermatology at [place] [address] [facility] [place] [phone] Marek Bonilla MD [address] [facility], TOD[address] A DERMATOLOGY [place], [place] [phone] documented as of this encounter Procedures Procedure Name Priority Date/Time Associated Diagnosis Comments BONE MARROW ASPIRATION PERFO RMED WITH BONE MARRROW BIOPSY Routine 06/28/2016 documented in this encounter Results * BONE MARROW ASPIRATION PREFORMED WITH BONE MARRROW BIOPSY (06/28/2016) Matthew Cervantes DO GENERAL SURGI DANIEL ORDERABLES documented in this encounter Visit Diagnoses Not on filedocumented in this encounter Care Teams Graphic Illustrator Relationship Specialty Start Date End Date Deborah Quiroga, HOIST OPERATOR PCP - General Family Medicine 03/24/16 02/04/23 documented as of this encounter
--- OUTSIDE RECORDS SUMMARY | 2024-03-30 14:32 | XMS_ITS | Encounter Summary ---
Author Organization [facility] Address [facility] [place] [address] Care Team Providers Care Belt Worker Name Role Phone Ashley Quirogan Cornelius ANURAG Primary Care Provider [phone] Encounter Details Date Type Department Care Team (Late st Contact Info) Description 08/11/2016 Telephone Hematology [place] [phone] Markel Borjas MD [facility] [address] HEMATOLOGY [place] [address] Social History Tobacco Use Types Packs/Day Years [...] 4:15 PM EDT Office Visit Dermatology at [place] [address] [facility] [place] [address] Marek Bonilla MD [address], [place] [address] documented as of this encounter Visit Diagnoses Not on filedocumented in this encounter Care Teams Belt Worker Relationship Specialty Start Date End Date Deborah Quiroga APRN PCP - General Family Medicine 03/24/16 02/04/23 documented as of this encounter
--- OUTSIDE RECORDS SUMMARY | 2024-03-30 14:32 | XMS_ITS | Encounter Summary ---
[place] [address] Care Team Providers Care Regional Director Of Finance Name Role Phone Deborah Quiroga ANURAG Primary Care Provider [phone] Encounter Details Date Type Department Care Team (Late st Contact Info) Description 09/11/2016 Orders Only Hematology [place] [address] Alexandrea Greenwood RN Social History [...] the original note were not included. [facility] [place] [phone] Date: 09/11/16 Patient Name: Purnima Thacker : 1955 Diagnosis: Neutropenia Referral to [site]: [facility] Orders: ? Growth factor: [x] Neulasta 6mg SQ injection x 1 on 09/16/16 Signature: Markel Borjas MD beeper # [id number] Co-signature [if needed]: documented in this encounter Plan of Treatment Upcoming Encounters Date Type Department Care Team (Late st Contact Info) Description 03/01/2025 4:15 PM EDT Office Visit Dermatology at [place] [address] [place] [address] Marek Bonilla MD [address], [place] [address] documented as of this encounter Procedures Procedure Name Priority Date/Time Associated Diagnosis Comments TRANSESOPHAGEAL ECHOCARDIOGRAM (GAVINO) Routine 09/22/2016 documented in this encounter Results * Transesophageal Echocardiogram (GAVINO) (09/22/2016) Anatomical Region Laterality Modality Other 09/22/2016 Narrative 09/22/2016 8:30 AM EST Procedure: ?Transesophageal Echocardiogram Patient: ?ANDREW ECHOLS M ? (Age): 1955(61y) Med Rec#: ? [id number] ?Sex: ?M ? Site Loc: ? [facility] [place] ?Ht / Wt: ??(cm)/ (kg) ? Pt. Loc: ?OR ? Study Date: ?? 09/21/2016 ?Pt. Type: Tape: ? 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 AVR for severe Rhythm: ? [...] ? Mid-Inferior ?Normal ? Mid-Inferoseptal ?Normal ? Potter-Septal ? Normal ? Potter-Anterior ? Normal ? Potter-Lateral ?Normal ? Potter-Inferior ? Normal ? Potter-Tip ?Normal ? This report has been electronically signed by: Henrki Yarbrough M.D. ? 09/22/2016 08:30:41 Images reviewed and interpretation verified [facility] Cardiac Ultrasound Laboratory Procedure Note Henrik Yarbrough MD - 09/22/2016 Procedure: Transesophageal Echocardiogram Patient: ANDREW Mejias (Age): 1955(61y) Med Rec#: [id number] Sex: M Site Loc: [facility] [place] Ht / Wt: (cm)/ (kg) Pt. Loc: OR Study Date: 09/21/2016 Pt. 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 09/22/2016 08:30:41 Images reviewed and interpretation verified [facility] Cardiac Ultrasound Laboratory Unknown ECHO ORDERABLES documented in this encounter Visit Diagnoses Not on filedocumented in this encounter Care Teams Regional Director Of Finance Relationship Specialty Start Date End Date Deborah Quiroga APRN PCP - General Family Medicine 03/24/16 02/04/23 documented as of this encounter
--- OUTSIDE RECORDS SUMMARY | 2024-03-30 14:32 | XMS_ITS | Encounter Summary ---
[place] [address] Care Team Providers Care Roofer Apprentice Name Role Phone Ashley Quirogan Cornelius ANURAG Primary Care Provider [phone] Reason for Visit * Reason Onset Date Comments Medical Care Coordination 09/14/2016 Encounter Details Date Type Department Care Team (Late st Contact Info) Description 09/14/2016 Telephone Hematology [place] [phone] Alexandrea Greenwood RN Medical Care Coordination Social [...] 09/14/2016 9:10 AM EST Message received from field secretary: Injection/Infusion Referral Call placed to [facility] Infusion Room Spoke charis Bragg. Services to be provided for pt are: [facility] 09/16/16 [facility] confirmed they would provide services to pt and would contact with appointment time. Pt aware to expect the phone call ??orders faxed to [phone]). documented in this encounter Plan of Treatment Upcoming Encounters Date Type Department Care Team (Late st Contact Info) Description 03/01/2025 4:15 PM EDT Office Visit Dermatology at [place] [address] [place] [phone] Marek Bonilla MD [address], [place] [address] documented as of this encounter Visit Diagnoses Not on filedocumented in this encounter Care Teams Roofer Apprentice Relationship Specialty Start Date End Date Deborah Quiroga APRN PCP - General Family Medicine 03/24/16 02/04/23 documented as of this encounter
--- OUTSIDE RECORDS SUMMARY | 2024-03-30 14:32 | XMS_ITS | Encounter Summary ---
Author Organization [facility] [place] [address] Care Team Providers Care Strip Feeder Name Role Phone Ashley Quirogan Cornelius ANURAG Primary Care Provider [phone] Reason for Referral * Consultation (Routine) - Specialty Diagnoses / Procedures Referred By Contact Referred To Contact Cardiac Rehabilitation Diagnoses S/P AVR Alirio Esparza MD [facility] [place] [address] Cardiac Rehab, [address] [place] [address] Referral ID Status Reason Start Date Expiration Date V isits Requested Visits Authorized [id number] Consult, Test & Treat 09/25/2016 03/24/2017 36 36 Reason for Visit * Auth/Cert Specialty Diagnoses / Procedures Referred By Contkrystle t Referred To Contact Diagnoses Aortic stenosis Procedures PRO REPLACE AORT VALV, PROSTH VALV @REPLACE AORTIC VALVE, OPEN, W\CPB, W\PROSTHETIC VALVE (WRVU 41.32) Referral ID Status Reason Start Date Expiration Date Visits Re quested Visits Authorized [id number] 1 1 Encounter Details Date Type Department Care Team (Latest Contact Info) Description 09/21/2016 6:08 AM EST - 09/25/2016 4:33 PM EST Hospital Encounter Inter[place] [id number] Alirio Esparza MD Aortic valve stenosis, unspecified [...] Patient Age: 61 y.o. Birthdate: 1955 Language: Namibian Race: White Ethnicity: Not nor Admit Date: 09/21/2016 Discharge Date: 09/25/2016 Attending Physician: Alirio Esparza MD Follow-up Recommendations for Providers: Please continue routine management of cardiovascular risk factors including blood pressure, lipids,glucose, etc. Please note any changes to medications. Patient to follow-up with PCP, Deborah Quiroga APRN, in 1-2 weeks. Patient to follow-up with [facility] [employer], Dr. Antelmo Burrell, in two weeks. Patient to follow-up with Cardiac Surgery, Dr. Alirio Esparza, to be scheduled for before 10/19/2016, with CXR, EKG, and Echo. Inpatient Provider Contact Information: [facility] Section of Cardiac Surgery [facility] [address] FAX [phone] Discharge Diagnoses (Hospital Problems) Primary Diagnoses: Secondary [...] 41.32) performed by Alirio Esparza MD at [facility] MAIN OR ??? Pro aortoplas for supravalv sten N/A 09/21/2016 @AORTOPLASTY FOR SUPRAVALVULAR STENOSIS (WRVU 29.33) performed by Alirio Esparza MD at [facility] MAIN OR Prior To Admission [...] Course: Purnima Thacker was admitted to [facility] on 09/21/2016 via the Same Day [...] Esparza and/or the Cardiac Surgery Physician Director Part Team may be reached at . Antibiotic prophylaxis: You will need to take antibiotics prior to many invasive tests and treatments, such as dental cleaning, which should be done every 6 months. Your primary care physician or your dentist can prescribe this medication. Please refer to the card with the [place] Heart Association Guidelines for more information. You have been provided with 3 copies of this card. Keep one for your self. Give one to your primary care physician and one to your dentist. Please refer to the [place] Heart Association Guidelines for more information. Good [...] Dr. Alirio Jones. You may use a [place] Track or treadmill but avoid any pulling [...] a low fat, low cholesterol, [place] Heart Association Diet. Driving: No driving until [...] AM Markel Borjas MD [facility] [phone] Future Orders Complete By Expires Echocardiogram Transthoracic([place]) [FIE775 Custom] 10/18/2016 (Approximate) 09/18/2017 Process Instructions: If the Echocardiogram is to be PERFORMED in a location other than [place]--STOP and order [id number], Echocardiogram South/External. Scheduling Instructions: Questions: Is a Bubble Study requested?: No Does the patient have Congenital Heart Disease?: No Does patient require sedation?: None GA rationale: Should this service be billed to the research sponsor?: EKG 12 Lead [EKG1 Custom] 10/18/2016 (Approximate) 09/25/2017 Process Instructions: Scheduling Instructions: Questions: Which location will this be performed?: [place] Is a rhythm strip needed?: No If EKG Reason is Pre-op Evaluation, indicate diagnosis for surgery.: Should this service be billed to the research sponsor?: XR Chest PA & Lateral (Generic) [[id number] Custom] 10/18/2016 (Approximate) 09/25/2017 Process Instructions: Scheduling Instructions: Questions: Where will study be performed?: [facility]- Radiology Portable exam?: No Reason for exam and clinical history: s/p AVReplacement, patch annuloplasty 1 month f/u Other pertinent information: Stat read required?: Date of injury if applicable: Requested Time: Referral to Cardiac Rehab [EFC238 Custom] As directed Process Instructions: If no progress note charted, please enter Clinical details in comments. Scheduling Instructions: Questions: My question or request is: s/p AVR. Cardiac rehab at [facility] Referral to Home Health - at DISCHARGE [VRX2685 CPT(R)] As directed Process Instructions: Scheduling Instructions: Comments: DOCUMENTATION FOR VNA SERVICES (INCLUDING THOSE PATIENTS WITH MEDICARE COVERAGE REQUIRING HOME VNA SERVICES AND/OR HOSPICE SERVICES) PATIENT'S LOCATION: Purnima Magalie Kirstie [address] [place] [phone] (home) No relevant phone numbers on file. Chemistry Associate's Name: self In discussion with the attending physician, it is certified that this patient is under their care and that they, or a Nurse Practitioner, or Physician Director Part who is working directly with them, hada [...] for services as follows: HOME HEALTH AGENCY: [facility] PHONE: [phone] FAX: [phone] RN orders: Cardiopulmonary assessment, incisional assessment, assess [...] issues please call the Cardiac SurgeryOffice at [phone] FOR MEDICARE ONLY: In discussion with the [...] noted. Questions: Agency name and contact information: [facility] V[facility] Patient location post discharge: home What services are requested: Registered Nurse Physical Therapy Occupational Therapy Start date: Responsible MD post discharge contact info: Arrangements for VNA/home care: As above. VN RN OR PCP TO PLEASE REMOVE CHEST TUBE SUTURES ON OR AFTER 09/30/16 Signed: Crispin Aranda PA-C 09/25/2016 [facility] Section of Cardiac Surgery [facility] [address] FAX [phone] Date: 09/25/2016 CC: ANURAG Alford Caryn E, APRN [address] [place] [address] documented in this encounter Discharge Instructions * [...] Esparza and/or the Cardiac Surgery Physician Director Part Team may be reached at . Antibiotic prophylaxis: You will need to take antibiotics prior to many invasive tests and treatments, such as dental cleaning, which should be done every 6 months. Your primary care physician or your dentist can prescribe this medication. Please refer to the card with the [place] Heart Association Guidelines for more information. You have been provided with 3 copies of this card. Keep one for your self. Give one to your primary care physician and one to your dentist. Please refer to the [place] Heart Association Guidelines for more information. Good [...] Dr. Alirio Jones. You may use a [place] Track or treadmill but avoid any pulling [...] a low fat, low cholesterol, [place] Heart Association Diet. Driving: No driving until [...] PM EST Cardiac Surgery Progress Note: ID: [id number] S/p AVR, patch aortoplasty POD#2. PMH of [...] Gas) No results found for: PHART, PO2ART, [id number] Assessment/Plan: TPW out this am. (+) BM. [...] Signed: Crispin Aranda PA-C 09/24/2016 Team pager: [phone]; [phone] [facility] Section of Cardiac Surgery * Leonor Henson, REGRINDER - 09/23/2016 10:48 AM EST Cardiac Surgery Progress Note: ID: [id number] s/p AVR, patch aortoplasty POD#2. PMH of [...] Gas) No results found for: PHART, PO2ART, [id number] Assessment/Plan: s/p AVR, patch aortoplasty POD#2. PMH of Neutropenia, HLD, HTN, Depression, obesity, . Transferred [facility] yesterday and doing well. [...] on rounds. Signed: Leonor Henson APRN [facility] Section of Cardiac Surgery Date: 09/23/2016 * Nico Palacios PA - 09/22/2016 9:56 AM EST Cardiac Surgery Progress Note: ID: [id number] s/p AVR, patch aortoplasty POD#1. PMH of [...] NT, ND, soft. Ext: Moves all extremities. [place], well perfused. Incisions: C/D/I Tubes/Lines/Drains: PIV, leanna, [...] Surgeon on rounds. Signed: EKATERINA KIM [facility] Section of Cardiac Surgery Date: 09/22/2016 [...] with outpatient services Lalitha Cohen SPTA Pager: [phone] Inpatient Physical Therapy Patient status, treatment interventions, and goals discussed with student. I am in agreement with all details and associated flowsheet rows as documented and was present for all aspects of the patient treatment session. Nerykatrina Jaramillo, [facility] Pager [phone] Problem: Acute Rehab Services Goal & Intervention Plan Goal: Bed Mobility Goal Stand Alone Therapy Goal Outcome: Ongoing (Interventions Implemented as Appropriate) 09/22/16 16109/25/16 09 Bed Mobility Goal Bed Mobility Goal, Time to Achieve 4 days -- Bed Mobility Goal, Activity Type scoot/bridge;supine to sit/sit to supine -- Bed Mobility Goal, [place] Level independent -- Bed Mobility Goal, Additional [...] Achieve 4 days -- Gait Training Goal, Kle[place] Level independent -- Gait Training Goal, Distance [...] assist, home with home health Lalitha Cohen [facility] Pager: [phone] Inpatient Physical Therapy Patient status, treatment interventions, and goals discussed with student. I am in agreement with all details and associated flowsheet rows as documented and was present for all aspects of the patient treatment session. Nery Jaramillo, [facility] Pager [phone] Problem: Acute Rehab Services Goal & Intervention Plan Goal: Bed Mobility Goal Stand Alone Therapy Goal Outcome: Ongoing (Interventions Implemented as Appropriate) 09/22/16 16109/23/16 1412 Bed Mobility Goal Bed Mobility Goal, Time to Achieve 4 days -- Bed Mobility Goal, Activity Type scoot/bridge;supine to sit/sit to supine -- Bed Mobility Goal, Kle[place] Level independent -- Bed Mobility Goal, Additional [...] Achieve 4 days -- Gait Training Goal, [place] Level independent -- Gait Training Goal, Distance [...] days -- Transfer Training Goal, Activity Type srp-it-iefmd/knjmd-zx-cac;icg-ib-xvxnx/bnjbo-ts-xjs -- Transfer Train Goal, [place] Level independent -- Transfer Training Goal, Additional Goal abides sternal precautions -- Transfer Training Goal, Outcome -- goal met * Consult Note - Jana Crenshaw RN - 09/23/2016 9:41 AM EST [facility] CARDIAC REHABILITATION [...] Another Service: (cardiac rehab) NICOLE HERNANDEZ, PT Pager:[phone] Inpatient Physical Therapy Problem: Acute Rehab Services Goal & Intervention Plan Goal: Bed Mobility Goal Stand Alone Therapy Goal Outcome: Ongoing (Interventions Implemented as Appropriate) 09/22/16 1611 Bed Mobility Goal Bed Mobility Goal, Time to Achieve 4 days Bed Mobility Goal, Activity Type scoot/bridge;supine to sit/sit to supine Bed Mobility Goal, Kle[place] Level independent Bed Mobility Goal, Additional Goal able to abide sternal precautions during transfers Goal: Gait Training Goal Stand Alone Therapy Goal Outcome: Ongoing (Interventions Implemented as Appropriate) 09/22/16 1611 Gait Training Goal Gait Training Goal, Date Established 09/22/16 Gait Training Goal, Time to Achieve 4 days Gait Training Goal, Kle[place] Level independent Gait Training Goal, Distance to Achieve ascend and descends 2 steps independently Goal: Goal Transfer Training Stand Alone Therapy Goal Outcome: Ongoing (Interventions Implemented as Appropriate) 09/22/16 1611 Goal Transfer Training Transfer Training Goal, Time to Achieve 4 days Transfer Training Goal, Activity Type dvn-ua-qkvrg/wukhf-jc-ord;mdq-zj-jhyob/ycbae-zq-ptl Transfer Train Goal, Kle[place] Level independent Transfer Training Goal, Additional Goal [...] of completing AD's at home, chooses her eoupaf-uw-vxy, Martha Thacker (home) for her [facility], 2nd choice in friend, Nitesh Leroy [place], [place] Current Coping/Education/Information Needs: patient sitting up [...] who live close by, [place], and her bwvpvu-qb-ebw Martha Thacker who she has chosen to be her DPOAH. Also has a friend Nitesh Leroy who lives in [place], [place], also her DPOAH choice. Behavioral Health History: none on file in [facility] Substance Use/Abuse: none on file in [facility] Other Pertinent/Service Specific Information: none Health/Prescription Coverage: Primary Insurance: [employer] Secondary Insurance: none Prescription Coverage: yes, per patient no issues Preferred Pharmacy: ?? Other: none Primary Care Provider: Deborah Quiroga, REGRINDER [phone] Patient/Caregiver Goals of Treatment: per medical team [...] referrals are placed. Patient requests referral to: [facility]. PHONE: [phone] FAX: [phone] Expected date of discharge: Fri/Sat? CM called VNA to confirm referral, talked with VALDO Bunn/intake who stated she was familiar w/patient & would monitor her progress through curaspan. Referral routed to the Neurology Tech for matching with agency/vendor and to provide any required information. A member of the Care Management team will continue to monitor progress, follow for continuity of care and assist with transition of care planning. Amanad Moreno RN Pager: [phone] * Op Note - Alirio Esparza MD - 09/21/2016 12:53 PM EST 09/23/2016 Purnima Thacker 1955 [id number] Preoperative Diagnosis: Symptomatic aortic stenosis Postoperative Diagnosis: Symptomatic aortic stenosis Procedure: Aortic valve replacement: Bovine Pericardial 25 mm Surgeon: Alirio Esparza M.D. Director Part: Philip BALL Anesthesia: General endotracheal anesthesia Drains: [...] Operative Note Patient Name: Purnima Thacker : [id number] MR#: [id number] Case Date: 09/21/2016 Surgeon: Surgeon(s) and Role: * Alirio Esparza MD - Primary * Nico Palacios PA - Physician Director Part Preoperative diagnosis: Postoperative diagnosis: Procedure(s) (LRB): @REPLACE [...] EDT Office Visit Dermatology at [place] [address] [place] [address] Marek Bonilla MD [address], [place] [address] Scheduled Orders Name Type Priority Associated Diagnoses [...] IMPLANTABLE DEVICES SCAN 09/26/2016 12:00 AM EST DIGITAL RESEARCH ANALYST SCAN 09/26/2016 12:00 AM EST POTASSIUM [...] SCAN EXT O RDR/RSLT * SCAN DOC: DIGITAL RESEARCH ANALYST (09/26/2016 12:00 AM EST) Anatomical Region Laterality Modality Other Narrative 09/26/2016 12:00 AM EST Ordered by an unspecified provider. Scanning Provider MEDIA MGR SCAN EXT O RDR/RSLT * Potassium (09/25/2016 4:32 AM EST) Pathologist [facility] Potassium 4.4 3.5 - 5.0 mmol/L [facility] [...] ORDERABLE S [facility] [place] [address] * (ABNORMAL) Differential, Automated (09/24/2016 9:56 AM EST) [facility] Neutrophil % 76.8 % [facility] Neutrophil Absolute 7.79(H) 1.70 - 6.10 x10(3)/mc L [facility] Lymph % 11.1 % [facility] Lymphocytes Abs 1.1 0.9 - 3.2 x10(3)/mc L [facility] Monocyte % 8.5 % [facility] Monocyte Abs 0.9 0.3 - 0.9 x10(3)/mc L [facility] Eos % 0.5 % [facility] [...] ORDERABL ES [facility] [place] [address] * (ABNORMAL) Hemogram (09/24/2016 9:56 AM EST) White Blood Cell 10.1(H) 4.0 - 9.5 x10(3)/mc L [facility] [...] Platelet 141(L) 145 - 357 x10(3)/mc L [facility] [...] ORDERABL ES [facility] [place] [address] * (ABNORMAL) Basic Metabolic Panel (non-fasting) (09/24/2016 [...] intervals supplied above were not validated at [facility]. Results from pediatric [...] LABORATORY Est Glomerular Filtration Rate >60 >=60 [facility] Comment: This [...] the following links into your internet browser. [email or web address] [email or web address] Blood specimen (specimen) 09/24/2016 9:56 AM EST 09/24/2016 10:04 AM EST Narrative Resulting Agency Comment Spec In Lab Alirio Esparza MD CHEMISTRY ORDERABLE S [facility] [place] [address] * XR Chest PA & Lateral (Generic) [...] MD CHEMISTRY ORDERABLE S Performing Organization Address [facility] Co de Phone Number [facility] [place] [address] * POCT Glucose (09/22/2016 8:17 AM EST) Glucose, POC 131 65 - 199 mg/dL [facility] Comment: Supplemental ranges: <140 mg/dL before meals <180 mg/dL all other times of the day Blood specimen (specimen) 09/22/2016 8:17 AM EST 09/22/2016 8:17 AM EST Alirio Esparza MD POINT OF CARE TEST ORDERABLES Performing Organization Address City/[facility]/ZIP Co de Phone Number [facility] [place] [address] * POCT Glucose (09/22/2016 4:01 AM EST) Glucose, POC 135 65 - 199 mg/dL [facility] Comment: Supplemental ranges: <140 mg/dL before meals <180 mg/dL all other times of the day Blood specimen (specimen) 09/22/2016 4:01 AM EST 09/22/2016 4:01 AM EST Alirio Esparza MD POINT OF CARE TEST ORDERABLES [facility] [place] [address] * Scan, Peripheral Blood (09/22/2016 4:00 AM EST) Plat estimate Normal [facility] RBC Morphology Abnormal [facility] Macrocyte 1-5 /HPF [facility] Plat, Giant Less than 1 /HPF [facility] Blood specimen (specimen) 09/22/2016 4:00 AM EST 09/22/2016 4:34 AM EST Narrative Resulting Agency Comment Spec In Lab Alirio Esparza MD HEMATOLOGY ORDERABL ES Performing Organization Address [facility] Co de Phone Number [facility] [place] [address] * Electrolytes panel (09/22/2016 4:00 AM EST) Pathologist [facility] Sodium 145 135 - 145 mmol/L [facility] [...] MD CHEMISTRY ORDERABLE S Performing Organization Address [facility] Co de Phone Number [facility] [place] [address] * (ABNORMAL) Differential, Automated (09/22/2016 4:00 AM EST) Pathologist [facility] Neutrophil % 70.9 % [facility] Neutrophil Absolute 5.33 1.70 - 6.10 x10(3)/[facility] LABOR[facility] Lymph % 9.1 % [facility] Lymphocytes Abs 0.7(L) 0.9 - 3.2 x10(3)/[facility] Monocyte % 18.0 % [facility] Monocyte Abs 1.4(H) 0.3 - 0.9 x10(3)/[facility] Eos % 0.0 % [facility] Eosinophils Abs 0.0 0.0 - 0.4 x10(3)/[facility] Basophil % 0.1 % [facility] Baso Absolute 0.0 0.0 - 0.1 x10(3)/[facility] LABOR[facility] Immature Gran % 1.90 % [facility] Comment: Immature granulocytes(IG's)percentage and absolute count will include metamyelocytes, myelocytes, and promyelocytes. Blood smears from CBCs yielding IG's will be scanned manually for concordance. If this scan disagrees with the automated IG or if promyelocytes are noted, a manual differential will be performed. Immature Gran Absolute 0.14(H) 0.00 - 0.04 x10(3)/[facility] LAB[facility] Blood specimen (specimen) 09/22/2016 4:00 AM EST 09/22/2016 4:34 AM EST Narrative Resulting Agency Comment Spec In Lab Alirio Esparza MD HEMATOLOGY ORDERABL ES [facility] [place] [address] * (ABNORMAL) Hemogram (09/22/2016 4:00 AM EST) White Blood Cell 7.5 4.0 - 9.5 x10(3)/[facility] LAB[facility] Red Blood Cell 2.93(L) 4.00 - 5.21 x10(6)/[facility] [...] Platelet 161 145 - 357 x10(3)/mc L [facility] RDW Standard Deviation 44.0 37.0 - 46.0 fL [facility] [...] ORDERABL ES [facility] [place] [address] * (ABNORMAL) Cardiac Enzymes (09/22/2016 4:00 AM EST) Troponin-T 0.13(H) <=0.03 ng/mL [facility] Comment: 0.03 ng/mL: Represents the 99th percentile upper reference limit for normals. >0.03 ng/mL: Elevated cardiac troponin T level indicative of myocardial damage. Diagnosis of acute, evolving or recent AK requires a typical rise and gradual fall [...] of the Joint Society of Cardiology/[place] College of Cardiology Committee for the redefinition of myocardial infarction. ??Journal of the [place] College of Cardiology 2000; 36: 959-969] Creatine Kinase 338(H) 0 - 160 unit/L [facility] Blood specimen (specimen) 09/22/2016 4:00 AM EST 09/22/2016 4:34 AM EST Narrative Resulting Agency Comment Spec In Lab Alirio Esparza MD CHEMISTRY ORDERABLE S Performing Organization Address City/State/[facility] Co de Phone Number [facility] [place] [address] * (ABNORMAL) Glucose, fasting (09/22/2016 4:00 AM [...] Mellitus, Position Statement from the [place] Diabetes Association. ??Diabetes Care, Volume 33, Supplement 1, Aug 2009 Blood specimen (specimen) 09/22/2016 4:00 AM EST 09/22/2016 4:34 AM EST Narrative Resulting Agency Comment Spec In Lab Alirio Esparza MD CHEMISTRY ORDERABLE S Performing Organization Address City/[facility]/ZIP Co de Phone Number [facility] [place] [address] * (ABNORMAL) Creatinine (09/22/2016 4:00 AM EST) Creatinine 0.69(L) 0.70 - 1.20 mg/dL [facility] Comment: Please note that the pediatric reference intervals supplied above were not validated at [facility]. Results from pediatric patients should be interpreted in conjunction to the patient's age, height and muscle mass. Est Glomerular Filtration Rate >60 >=60 [facility] Comment: This [...] the following links into your internet browser. [email or web address] [email or web address] Blood specimen (specimen) 09/22/2016 4:00 AM EST 09/22/2016 4:34 AM EST Narrative Resulting Agency Comment Spec In Lab Alirio Esparza MD CHEMISTRY ORDERABLE S Performing Organization Address [facility]/ZIP Co de Phone Number [facility] [place] [address] * BUN (09/22/2016 4:00 AM EST) Blood Urea Nitrogen 10 8 - 18 mg/dL [facility] Blood specimen (specimen) 09/22/2016 4:00 AM EST 09/22/2016 4:34 AM EST Narrative Resulting Agency Comment Spec In Lab Alirio Esparza MD CHEMISTRY ORDERABLE S Performing Organization Address City/[facility]/ZIP Co de Phone Number [facility] [place] [address] * POCT Glucose (09/21/2016 9:59 PM EST) Glucose, POC 146 65 - 199 mg/dL [facility] Comment: Supplemental ranges: <140 mg/dL before meals <180 mg/dL all other times of the day Blood specimen (specimen) 09/21/2016 9:59 PM EST 09/21/2016 9:59 PM EST Alirio Esparza MD POINT OF CARE TEST ORDERABLES [facility] [place] [address] * POCT Glucose (09/21/2016 7:26 PM EST) Glucose, POC 152 65 - 199 mg/dL [facility] Comment: Supplemental ranges: <140 mg/dL before meals <180 mg/dL all other times of the day Blood specimen (specimen) 09/21/2016 7:26 PM EST 09/21/2016 7:26 PM EST Alirio Esparza MD POINT OF CARE TEST ORDERABLES [facility] [place] [address] * POCT Glucose (09/21/2016 6:00 PM EST) Glucose, POC 146 65 - 199 mg/dL [facility] Comment: Supplemental ranges: <140 mg/dL before meals <180 mg/dL all other times of the day Blood specimen (specimen) 09/21/2016 6:00 PM EST 09/21/2016 6:00 PM EST Alirio Esparza MD POINT OF CARE TEST ORDERABLES [facility] [place] [place] [address] * (ABNORMAL) BLOOD GAS 2 ARTERIAL (09/21/2016 4:42 PM EST) pH, Arterial 7.35(L) 7.35 - 7.45 [facility] PCO2, Arterial 48(H) 35 - 45 mmHg [facility] PO2, Arterial 108(H) 85 - 104 mmHg [facility] Bicarbonate, Arterial 26.0 20.0 - 26.0 mmol/L [facility] Base Excess, Arterial 0.5 -3.0 - 3.0 mmol/L [facility] Hgb Blood Gas 10.4(L) 11.7 - 15.5 gm/dL [facility] Oxyhemoglobin, Arterial 96.2 94.0 - 97.0 % [facility] Carboxyhemoglob in, Arterial 0.0 % [facility] FIO2 Art 40 % [facility] PF Ratio Art 270 [facility] Blood specimen (specimen) 09/21/2016 4:42 PM EST 09/21/2016 4:42 PM EST Alirio Esparza MD POINT OF CARE TEST ORDERABLES Performing Organization Address [facility] Co de Phone Number [facility] [place] [place] [address] * POCT Glucose (09/21/2016 4:07 PM EST) Glucose, POC 150 65 - 199 mg/dL [facility] Comment: Supplemental ranges: <140 mg/dL before meals <180 mg/dL all other times of the day Blood specimen (specimen) 09/21/2016 4:07 PM EST 09/21/2016 4:07 PM EST Alirio Esparza MD POINT OF CARE TEST ORDERABLES Performing Organization Address [facility] Co de Phone Number [facility] [place] [address] * (ABNORMAL) Hemoglobin (09/21/2016 4:05 PM EST) Hemoglobin 9.9(L) 11.7 - 15.5 gm/dL [facility] Blood specimen (specimen) 09/21/2016 4:05 PM EST 09/21/2016 4:20 PM EST Narrative Resulting Agency Comment Spec In Lab Alirio Esparza MD HEMATOLOGY ORDERABL ES Performing Organization Address [facility] Co de Phone Number [facility] [place] [address] * Potassium (09/21/2016 4:05 PM EST) Potassium 4.6 3.5 - 5.0 mmol/L [facility] [...] MD CHEMISTRY ORDERABLE S Performing Organization Address [facility] Co de Phone Number [facility] [place] [address] * POCT Glucose (09/21/2016 2:52 PM EST) Glucose, POC 117 65 - 199 mg/dL [facility] Comment: Supplemental ranges: <140 mg/dL before meals <180 mg/dL all other times of the day Blood specimen (specimen) 09/21/2016 2:52 PM EST 09/21/2016 2:52 PM EST Alirio Esparza MD POINT OF CARE TEST ORDERABLES Performing Organization Address [facility] Phone Number [facility] [place] [place] [address] * POCT Glucose (09/21/2016 1:51 PM EST) Glucose, POC 108 65 - 199 mg/dL [facility] Comment: Supplemental ranges: <140 mg/dL before meals <180 mg/dL all other times of the day Blood specimen (specimen) 09/21/2016 1:51 PM EST 09/21/2016 1:51 PM EST Alirio Esparza MD POINT OF CARE TEST ORDERABLES Performing Organization Address [facility] Co de Phone Number [facility] [place] [address] * POCT Glucose (09/21/2016 12:54 PM EST) Glucose, POC 128 65 - 199 mg/dL [facility] Comment: Supplemental ranges: <140 mg/dL before meals <180 mg/dL all other times of the day Blood specimen (specimen) 09/21/2016 12:54 PM EST 09/21/2016 12:54 PM EST Alirio Esparza MD POINT OF CARE TEST ORDERABLES Performing Organization Address City/[facility]/ZIP Co de Phone Number [facility] [place] [place] [address] * EKG 12 Lead (09/21/2016 12:26 PM EST) Ventricular rate 87 BPM MUSE SYSTEM Atrial Rate 87 BPM MUSE SYSTEM P-R Interval 256 ms MUSE SYSTEM QRS Duration 90 ms MUSE SYSTEM Q-T Interval 406 ms MUSE SYSTEM QTC Calculated (Bezet) 488 ms MUSE SYSTEM Calculated P [place] 24 degrees MUSE SYSTEM Calculated R [place] 21 degrees MUSE SYSTEM Calculated T [place] -5 degrees MUSE SYSTEM INTERPRETATION Sinus rhythm [...] Esparza MD ECG ORDERABLES Performing Organization Address [facility] Co de [...] course of the esophagus and below the [id number]. There is a right IJ PA catheter [...] the course of theesophagus and below the [id number]-[id number]-[id number]. There is a right IJ PA catheter [...] [facility] FIO2 Art 100 % [facility] PF Ratio Art 356 [facility] Blood specimen (specimen) 09/21/2016 12:20 PM EST 09/21/2016 12:20 PM EST Alirio Esparza MD POINT OF CARE TEST ORDERABLES Performing Organization Address City/State/[facility] Co de Phone Number [facility] [place] [place] [address] * (ABNORMAL) BLOOD GAS 2 ARTERIAL (09/21/2016 [...] [facility]ICAL [facility]ENTER [facility] FIO2 Art 95 % [facility] Flow Art 0.7 LPM [facility] PF Ratio Art 313 [facility] Temp Art 36.7 Celsius [facility] Blood specimen (specimen) 09/21/2016 10:54 AM EST 09/21/2016 10:54 AM EST Alirio Esparza MD POINT OF CARE TEST ORDERABLES Performing Organization Address City/State/[facility] Co de Phone Number [facility] [place] [place] [address] * Thrombin time (09/21/2016 10:50 AM EST) [...] MD HEMATOLOGY ORDERABLE S Performing Organization Address [facility] Co de Phone Number [facility] [place] [place] [address] * Fibrinogen (09/21/2016 10:50 AM EST) Fibrinogen [...] MD HEMATOLOGY ORDERABLE S Performing Organization Address [facility] Co de Phone Number [facility] [place] [address] * APTT (09/21/2016 10:50 AM EST) Partial Thromboplastin Time 32 25 - 35 sec [facility] Comment: The recommended therapeutic range for full dose, unfractionated heparin at [facility] is 80 ? [...] MD HEMATOLOGY ORDERABLE S Performing Organization Address City/[facility] Co de Phone Number [facility] [place] [address] * (ABNORMAL) Prothrombin Time (09/21/2016 10:50 AM [...] HEMATOLOGY ORDERABLE S Performing Organization Address City/State/[facility] Co de Phone Number [facility] [place] [place] [address] * (ABNORMAL) Hemogram (09/21/2016 10:50 AM EST) Pathologist [facility] White Blood Cell 14.7(H) 4.0 - 9.5 [...] RDW Standard Deviation 42.6 37.0 - 46.0 [facility] RDW coefficient of variation 12.1 11.5 - 14.1 % [facility] Mean Platelet Volume 9.2 7.6 - 12.9 [facility] NRBC% auto 0.1 % [facility] NRBC Absolute 0.020(H) 0.000 - 0.000 x10(3)/mc L [facility] Blood specimen (specimen) 09/21/2016 10:50 AM EST 09/21/2016 10:56 AM EST Narrative Resulting Agency Comment Spec In Lab Luis Enrique Quarles MD HEMATOLOGY ORDERABLE S Performing Organization Address [facility] Co de Phone Number [facility] [place] [address] * Prepare Platelets, Apheresis (09/21/2016 10:30 AM EST) Pathologist [facility] Dispensed? Yes [facility] Blood specimen (specimen) 09/21/2016 10:30 AM EST 09/21/2016 10:28 AM EST Alirio Esparza MD BLOOD BANK PRODUCT ORDERABLES Performing Organization Address [facility] Co md Phone Number [facility] [place] [address] * (ABNORMAL) BLOOD GAS 2 ARTERIAL (09/21/2016 10:05 AM EST) pH, Arterial 7.33(L) 7.35 - 7.45 [facility] PCO2, Arterial 54(Critic al) 35 - 45 mmHg [facility] Comment:Noted by musical instrument supervisor. PO2, Arterial 218(H) 85 - 104 mmHg [...] [facility] Comment: Noted by musical instrument supervisor. Please note: Patients with WBC >100,000 may [...] [facility]ICAL [facility]ENTER [facility] Temp Art 37.0 Celsius [facility] Blood specimen (specimen) 09/21/2016 10:05 AM EST 09/21/2016 10:05 AM EST Alirio Esparza MD POINT OF CARE TEST ORDERABLES [facility] [place] [address] * (ABNORMAL) BLOOD GAS 2 ARTERIAL (09/21/2016 9:44 AM EST) pH, Arterial 7.22(Criti gabrielle) 7.35 - 7.45 [facility] Comment:Noted by musical instrument supervisor. PCO2, Arterial 70(Critica l) 35 - 45 mmHg [facility] Comment:Noted by musical instrument supervisor. PO2, Arterial 224(H) 85 - 104 mmHg [...] TEST ORDERABLES [facility] [place] [place] [address] * (ABNORMAL) Hemoglobin (09/21/2016 9:42 AM EST) Hemoglobin 7.2(L) 11.7 - 15.5 gm/dL [facility] Blood specimen (specimen) 09/21/2016 9:42 AM EST 09/21/2016 9:51 AM EST Narrative Resulting Agency Comment Spec In Lab Alirio Esparza MD HEMATOLOGY ORDERABL ES Performing Organization Address [facility]/ZIP Co de Phone Number [facility] [place] [address] * Platelet count (09/21/2016 9:42 AM EST) Platelet 159 145 - 357 x10(3)/mc L [facility] Immature Plt % 1.6 0.0 - 7.4 % [facility] Comment: Limitation of the Immature Platelet Fraction (IPF)-May be less reliable when the platelet count is less than 91t269/uL due to statistical imprecision. The IPF value [...] in a decreased state of production. References: [employer] The Clinical Value of the Immature Platelet Fraction (IPF) in Cell Recovery Document Number 10-1143 12/2010 [employer] The Role of the Immature Platelet Fraction (IPF) in the Differential Diagnosis of Thrombocytopenia, Document MKT-[id number] V012/11/13 P012/13 Blood specimen (specimen) 09/21/2016 9:42 AM EST 09/21/2016 9:51 AM EST Narrative Resulting Agency Comment Spec In Lab Alirio Esparza MD HEMATOLOGY ORDERABL ES Performing Organization Address [facility] Co de Phone Number [facility] [place] [address] * (ABNORMAL) Hematocrit (09/21/2016 9:42 AM EST) [...] MD HEMATOLOGY ORDERABL ES Performing Organization Address [facility] de Phone Number [facility] [place] [address] * Fibrinogen (09/21/2016 9:42 AM EST) Fibrinogen [...] ORDERABL ES Performing Organization Address [facility] Co de Phone Number [facility] [place] [address] * (ABNORMAL) BLOOD GAS 2 ARTERIAL (09/21/2016 [...] [facility]ICAL [facility]ENTER [facility] Temp Art 37.0 Celsius [facility] Blood specimen (specimen) 09/21/2016 9:10 AM EST 09/21/2016 9:10 AM EST Alirio Esparza MD POINT OF CARE TEST ORDERABLES Performing Organization Address City/[facility] Co de Phone Number [facility] [place] [address] * Surgical Pathology Report (09/21/2016 9:09 AM EST) Final Diagnosis [id number] ?Location: 3T The signing pathologist has (i) [...] Esparza MD PATHOLOGY/CYTOLOGY ORDERABLES Performing Organization Address [facility]/ZIP Co de Phone Number [facility] [place] [address] * Specimen to Pathology (surgical or derm) (09/21/2016 9:09 AM EST) AP Specimen 09/21/2016 9:09 AM EST 09/21/2016 9:09 AM EST Narrative [facility] - 09/21/2016 9:09 AM EST Specimen requisition ordered. ??Separate Pathology report to follow Alirio Esparza MD PATHOLOGY/CYTOLOGY ORDERABLES [facility] [place] [address] * (ABNORMAL) BLOOD GAS 2 ARTERIAL (09/21/2016 [...] TEST ORDERABLES [facility] [place] [address] * (ABNORMAL) BLOOD GAS 2 ARTERIAL (09/21/2016 [...] MEDICAL CENTER [facility] FIO2 Art 95 % [facility] Flow Art 1.1 LPM [facility] PF Ratio Art 298 [facility] Temp Art 35.6 Celsius [facility] Blood specimen (specimen) 09/21/2016 8:18 AM EST 09/21/2016 8:18 AM EST Alirio Esparza MD POINT OF CARE TEST ORDERABLES [facility] [place] [address] * Prepare RBC (09/21/2016 7:05 AM EST) Dispensed? Yes [facility] Blood specimen (specimen) 09/21/2016 7:05 AM EST 09/21/2016 7:02 AM EST Alirio Esparza MD BLOOD BANK PRODUCT ORDERABLES [facility] [place] [address] * POCT Glucose (09/21/2016 6:42 AM EST) Glucose, POC 104 65 - 199 mg/dL [facility] Comment: Supplemental ranges: <140 mg/dL before meals <180 mg/dL all other times of the day Blood specimen (specimen) 09/21/2016 6:42 AM EST 09/21/2016 6:42 AM EST Alirio Esparza MD POINT OF CARE TEST ORDERABLES [facility] [address] documented in this encounter Visit Diagnoses Diagnosis [...] dose on Wed09/21/16 at 1230, Until Discontinued, [place] teeth, Routine Given 09/25/2016 9:40 AM EST [...] if phenyleprine and/or vasopressin ineffective.Call pager # [phone] if initiated., Routine Rate/Dose Change 09/21/2016 2:27 [...] L/min/M2. Maximum volume 2 L. Call supervisor feed house for additional fluid orders: pager #[phone]. Rate/Dose Verify 09/22/2016 10:00 AM EST 10 [...] - Provider: Kendall Martínez [facility]) aspirin chewable tablet 81 mg(Linked Group [...] dose on Wed09/21/16 at 1230, Until Discontinued, [place] teeth, Routine 0900 (Not Given - Provider: [...] Alie Whitfield RN) 0941 (Given - Provider: Joselny Caceres, VALDO) pantoprazole (PROTONIX) injection 40 mg(Linked [...] Routine documented in this encounter Care Teams Strip Feeder Relationship Specialty Start Date End Date Deborah Quiroga APRN PCP - General Family Medicine 03/24/16 02/04/23 documented as of this encounter
--- OUTSIDE RECORDS SUMMARY | 2024-03-30 14:32 | XMS_ITS | Encounter Summary ---
[place] [address] Care Team Providers Care Marketing Operations Assistant Name Role Phone Deborah Quiroga ANURAG Primary Care Provider [phone] Reason for Visit * Reason Onset Date Comments Medical Care Coordination 07/17/2016 Encounter Details Date Type Department Care Team ([facility] Contact Info) Description 07/17/2016 Telephone Hematology [place] [phone] Alexandrea Greenwood RN Medical Care Coordination Social [...] 07/17/2016 12:07 PM EST Message received from time analysis clerk: Injection/Infusion Referral Call placed to [phone]). Spoke w/ Pasquale. Services to be provided for pt are: Labs @ 10am ([facility]) & [facility] @ 11am on 07/20/16, CBC only on 07/30/16 Pasquale confirmed they would provide services to pt and I left [facility] for pt to call for appt info. Pt demographics, office note, med list and orders faxed to [facility] & [facility] documented in this encounter Plan of Treatment Upcoming Encounters Date Type Department Care Team (Late st Contact Info) Description 03/01/2025 4:15 PM EDT Office Visit Dermatology at [place] [address] [place] [address] Marek Bonilla MD [address], [place] [address] documented as of this encounter Visit Diagnoses Not on filedocumented in this encounter Care Teams Marketing Operations Assistant Relationship Specialty Start Date End Date Deborah Quiroga APRN PCP - General Family Medicine 03/24/16 02/04/23 documented as of this encounter
--- OUTSIDE RECORDS SUMMARY | 2024-03-30 14:32 | XMS_ITS | Encounter Summary ---
[place] [address] Care Team Providers Care Game Developer Name Role Phone Deborah Quiroga APRN Primary Care Provider [phone] Encounter Details Date Type Department Care Team (Late st Contact Info) Description 09/17/2016 External Results Hematology [place] [address] Alexandrea Greenwood RN Neutropenia, unspecified type Social [...] 4:15 PM EDT Office Visit Dermatology at [place] [address] [place] [phone] Marek Bonilla MD [address], [place] [address] documented as of this encounter Procedures Procedure [...] type documented in this encounter Care Teams Game Developer Relationship Specialty Start Date End Date Deborah Quiroga, GAS PLANT DISPATCHER PCP - General Family Medicine 03/24/16 02/04/23 documented as of this encounter
--- OUTSIDE RECORDS SUMMARY | 2024-03-30 14:32 | XMS_ITS | Encounter Summary ---
[place] [address] Care Team Providers Care Pole Framer Name Role Phone Deborah Quiroga ANURAG Primary Care Provider [phone] Reason for Visit * Reason Onset Date Comments Medical Care Coordination 07/31/2016 Encounter Details Date Type Department Care Team (Late st Contact Info) Description 07/31/2016 Telephone Hematology [place] [phone] Alexandrea Greenwood RN Medical Care Coordination Social [...] 08/04/15 RN spoke with Aydee of the [facility] lab who states they can draw pt's cbc on 08/04/15, RN faxed lab req to [phone] at Aydee's request. RN instructed pt on Dr. Borjas's direction above. Pt verbalized understanding. documented in this encounter Plan of Treatment Upcoming Encounters Date Type Department Care Team (Late st Contact Info) Description 03/01/2025 4:15 PM EDT Office Visit Dermatology at [place] [address] [place] [address] Marek Bonilla MD [address] [place] [address] documented as of this encounter Visit Diagnoses Not on filedocumented in this encounter Care Teams Pole Framer Relationship Specialty Start Date End Date Deborah Quiroga APRN PCP - General Family Medicine 03/24/16 02/04/23 documented as of this encounter
--- OUTSIDE RECORDS SUMMARY | 2024-03-30 14:32 | XMS_ITS | Encounter Summary ---
Author Organization [facility] Address [facility] [place] [address] Care Team Providers Care High Pressure Operator Name Role Phone Deborah Quiroga APRN Primary Care Provider Encounter Details Date Type Department Care Team (Late st Contact Info) Description 07/17/2016 9:00 AM EST Office Visit Hematology [place] [address] Markel Borjas MD [facility] [facility] [address] HEMATOLOGY [place] [address] Neutropenia, unspecified type Social History Tobacco Use [...] 07/17/2016 9:00 AM EST Hematology Outpatient Clinic [facility] Hematology Outpatient Consult Note CC: [id number] [...] TOUCH PREP, CLOT SECTION, CORE ??BIOPSY); [OSR# [id number], COLLECTED 06/23/2016, 19 SLIDES]: ?1. ??Normocellular marrow [...] a clonal lymphoproliferative or myeloproliferative disorder (OSR# [id number]) Chromosome analysis on the marrow aspirate revealed [...] 24 hour(s)). Labs will be drawn at [facility] next week Imaging As above - [...] leukopenia. Will consi kanwal talking to pt's e commerce analyst about a switch from ACEI to ARB [...] original note were not included. N [facility] HEM ONC [facility] [id number] Date: 07/17/16 Patient Name: Purnima Thacker : 1955 Diagnosis: neutropenia Referral to [site]: [facility] Orders: ? Labs: Fax results to . [x] Draw CBC, copper level, CMV PCR, mononucleosis screen on 07/20 Repeat CBC on 07/30 (to measure response of WBC after Neulasta) ? Growth factor: [x] Neulasta 6mg SQ injection x 1 on 07/20/2016 Signature: Markel Borjas MD beeper # [id number] documented in this encounter Plan of Treatment Upcoming Encounters Date Type Department Care Team (Late st Contact Info) Description 03/01/2025 4:15 PM EDT Office Visit Dermatology at [place] [address] [place] [address] Marek Bonilla MD [address], [address] [place] [address] documented as of this encounter [...] ORDERAB LES Performing Organization Address [facility] Co de Phone Number EXTERNAL LAB * Mononucleosis Screen (07/20/2016 10:30 AM EST) Mononucleosis Screen neg neg - neg EXTERNAL LAB Blood specimen (specimen) 07/20/2016 10:30 AM EST Markel Borjas MD IMMUNOLOGY ORDERAB LES Performing Organization Address [facility] Co de Phone Number EXTERNAL LAB * Copper, serum (07/20/2016 10:30 AM EST) Pathologist [facility] Copper (NOVEMBER) 1.09 0.75 - 1.45 EXTERNAL LAB Blood specimen (specimen) 07/20/2016 10:30 AM EST Markel Borjas MD LAB SEND OUT ORDER JODIE Performing Organization Address [facility] de Phone Number EXTERNAL LAB * CMV PCR, Quantitative (07/20/2016 10:30 AM EST) Pathologist [facility] CMV PCR,Quantitati ve undetected EXTERNAL LAB Blood specimen (specimen) 07/20/2016 10:30 AM EST Markel Borjas MD MOLECULAR ORDERABL ES Performing Organization Address [facility] Co de Phone Number EXTERNAL LAB * (ABNORMAL) CBC (with Diff) (07/20/2016 10:30 AM EST) Pathologist [facility] White Blood Cell 1.61(A) 4.4 - 10.8 EXTERNAL LAB Hemoglobin 12.3 12.0 - 16.0 EXTERNAL LAB Hematocrit 37.2 36.0 - 46.0 EXTERNAL LAB Platelet 229 130 - 400 EXTERNAL LAB Blood specimen (specimen) 07/20/2016 10:30 AM EST Markel Borjas MD HEMATOLOGY ORDERAB LES EXTERNAL LAB documented in this encounter Visit Diagnoses Diagnosis Neutropenia, unspecified type documented in this encounter Care Teams High Pressure Operator Relationship Specialty Start Date End Date Deborah Quiroga, ELECTROTYPE FINISHER PCP - General Family Medicine 03/24/16 02/04/23 documented as of this encounter
--- OUTSIDE RECORDS SUMMARY | 2024-03-30 14:32 | XMS_ITS | Encounter Summary ---
[place] [address] Care Team Providers Care Automation Technologist Name Role Phone Deborah Quiroga ANURAG Primary Care Provider [phone] Encounter Details Date Type Department Care Team (Late st Contact Info) Description 07/31/2016 Orders Only [place] [address] Alexandrea Greenwood RN Neutropenia, unspecified type Social [...] 4:15 PM EDT Office Visit Dermatology at [place] [address] [facility] [place] [address] Marek Bonilla MD [address], [place] [address] documented as of this encounter Results * [...] type documented in this encounter Care Teams Automation Technologist Relationship Specialty Start Date End Date Deborah Quiroga, AEROPHYSICS ENGINEER PCP - General Family Medicine 03/24/16 02/04/23 documented as of this encounter
--- OUTSIDE RECORDS SUMMARY | 2024-03-30 14:32 | XMS_ITS | Encounter Summary ---
Author Organization [facility] [place] [address] Care Team Providers Care Retail Sales Advisor Name Role Phone Junaid Deborah Shields APRN Primary Care Provider [phone] Encounter Details Date Type Department Care Team (Latest Contact Info) Description 08/18/2016 4:40 PM EST [place] [address] Aortic valve stenosis, unspecified etiology Social History [...] 4:15 PM EDT Office Visit Dermatology at [place] [address] [place] [address] Marek Bonilla MD [address] [facility], [place] [address] documented as of this encounter Procedures Procedure Name Priority Date/Time Associated Diagnosis Comments ABORH RECHECK STATUS Routine 08/18/2016 4:50 PM EST TYPE AND SCREEN, SDP (FUTURE SURGERY, [facility] SAME DAY PROGRAM ONLY) Routine 08/18/2016 4:50 [...] Esparza MD BLOOD BANK LAB BETH SHANNONROMERO [facility] [place] [address] * Antibody screen (08/18/2016 4:50 PM EST) Ab Screen Interp Negative [facility] Expires at 2359 on: 09/24/2016 [facility] Comment: Corrected from 09/17/16 12:00 [Unknown] on 09/09/16 02:32 by Shireen Treviño Blood specimen (specimen) 08/18/2016 4:50 PM EST 08/18/2016 5:11 PM EST Narrative Resulting Agency Comment Spec In Lab Alirio Esparza MD BLOOD BANK LAB ORDSylvia ORTEGAROMERO [facility] [place] [address] * ABO/Rh Typing (08/18/2016 4:50 PM EST) ABORH Type B Pos [facility] Blood specimen (specimen) 08/18/2016 4:50 PM EST 08/18/2016 5:11 PM EST Narrative Resulting Agency Comment Spec In Lab Alirio Esparza MD BLOOD BANK LAB BETH ALEJO Lidia Organization Address City/State/ZIP Co de Phone Number [facility] [place] [address] * Basic Metabolic Panel (non-fasting) (08/18/2016 4:50 PM EST) Glucose 82 65 - 199 mg/dL [facility] Comment:Diabetes: >=200 mg/d L plus symptoms Blood Urea Nitrogen 12 8 - 18 mg/dL [facility] Creatinine 0.87 0.70 - 1.20 mg/dL [facility] Comment: Please note that the pediatric reference intervals supplied above were not validated at [facility]. Results from pediatric patients should be interpreted [...] the following links into your internet browser. [email or web address] Blood specimen (specimen) 08/18/2016 4:50 PM EST 08/18/2016 5:03 PM EST Narrative Resulting Agency Comment Spec In Lab Alirio Esparza MD CHEMISTRY ORDERABLE S Performing Organization Address City/State/[facility] Co de Phone Number [facility] [place] [address] documented in this encounter Visit Diagnoses Diagnosis Aortic valve stenosis, unspecified etiology documented in this encounter Care Teams Retail Sales Advisor Relationship Specialty Start Date End Date Deborah Quiroga, SAP BASIS ADMINISTRATOR PCP - General Family Medicine 03/24/16 02/04/23 documented as of this encounter
--- OUTSIDE RECORDS SUMMARY | 2024-03-30 14:32 | XMS_ITS | Encounter Summary ---
[place] [address] Care Team Providers Care Analog Circuit Designer Name Role Phone Deborah Quiroga APRN Primary Care Provider [phone] Encounter Details Date Type Department Care Team (Late st Contact Info) Description 08/18/2016 Orders Only [place] [address] Alirio Esparza MD Aortic valve stenosis, unspecified [...] 4:15 PM EDT Office Visit Dermatology at [place] [address] [place] [phone] Marek Bonilla MD [address] [facility], [place] [address] documented as of this encounter Results * [...] intervals supplied above were not validated at [facility]. Results from pediatric patients should be interpreted [...] LABORATORY Est Glomerular Filtration Rate >60 >=60 [facility] Comment: This estimated GFR (eGFR) [...] the following links into your internet browser. [email or web address] Blood specimen (specimen) 08/18/2016 4:50 PM EST 08/18/2016 5:03 PM EST Narrative Resulting Agency Comment Spec In Lab Alirio Esparza MD CHEMISTRY ORDERABLE S [facility] [place] [address] documented in this encounter Visit Diagnoses Diagnosis Aortic valve stenosis, unspecified etiology documented in this encounter Care Teams Analog Circuit Designer Relationship Specialty Start Date End Date Deborah Quiroga, UX LEAD PCP - General Family Medicine 03/24/16 02/04/23 documented as of this encounter
--- OUTSIDE RECORDS SUMMARY | 2024-03-30 14:32 | XMS_ITS | Encounter Summary ---
Author Organization [place] [address] Care Team Providers Care Elect Equip Maint Eng Name Role Phone Deborah Quiroga APRN Primary Care Provider [phone] Encounter Details Date Type Department Care Team (Late st Contact Info) Description 07/31/2016 External Results Hematology [place] [address] Alexandrea Greenwood RN Neutropenia, unspecified type Social [...] EDT Office Visit Dermatology at [place] [address] [place] [phone] Marek Bonilla MD [address], [place] [address] documented as of this encounter Procedures Procedure [...] type documented in this encounter Care Teams Elect Equip Maint Eng Relationship Specialty Start Date End Date Deborah Quiroga, AFTER SCHOOL CAREGIVER PCP - General Family Medicine 03/24/16 02/04/23 documented as of this encounter
--- OUTSIDE RECORDS SUMMARY | 2024-03-30 14:32 | XMS_ITS | Encounter Summary ---
Author Organization [facility] Address [facility] [place] [address] Care Team Providers Care Cane Stripper Name Role Phone Deborah Quiroga ANURAG Primary Care Provider [phone] Encounter Details Date Type Department Care Team (Late st Contact Info) Description 07/13/2016 External Results [place] [phone] Provider, Scanning Social History Tobacco Use Types [...] 4:15 PM EDT Office Visit Dermatology at [place] [address] [facility] [place] [address] Marek Bonilla MD [address], [place] [address] documented as of this encounter Procedures Procedure Name Priority Date/Time Associated Diagnosis Comments SURGICAL PATHOLOGY SCAN Routine 07/13/2016 documented in this encounter Results * Scan Doc: Surgical Pathology (07/13/2016) Nitesh Pina Jr., MD MEDIA MGR SCAN EXT O RDR/RSLT documented in this encounter Visit Diagnoses Not on filedocumented in this encounter Care Teams Cane Stripper Relationship Specialty Start Date End Date Deborah Quiroga APRN PCP - General Family Medicine 03/24/16 02/04/23 documented as of this encounter
--- OUTSIDE RECORDS SUMMARY | 2024-03-30 14:32 | XMS_ITS | Encounter Summary ---
[place] [address] Care Team Providers Care Acquisitions Assistant Name Role Phone Deborah Quiroga APRN Primary Care Provider [phone] Reason for Visit * Reason Onset Date Comments Prior Authorization 09/11/2016 Neulasta Encounter Details Date Type Department Care Team (Late st Contact Info) Description 09/11/2016 Telephone Hematology [place] [phone] Monica Wick Prior Authorization (Neulasta ) Social [...] AM EST Prior Auth for Neulasta (Approved) [facility] is a covered facility under the members plan. ID# [id number] Call placed to [phone] Rationale: Can you please start a PA for this pt to receive as outpatient at [facility] on 09/16/16? 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 ??Her last ANC was 0.56 (or 560) on 08/04/16. ??This will need to be approved through her medical as out patient. J code for neulasta. ?? [id number]. Spoke w/ Anna Marie Call Reference [id number] Copay: $ Deductible is not met, patient will have out of pocket costs until deductible is met. documented in this encounter Plan of Treatment Upcoming Encounters Date Type Department Care Team (Late st Contact Info) Description 03/01/2025 4:15 PM EDT Office Visit Dermatology at [place] [address] [place] [address] Marek Bonilla MD [address], [place] [address] documented as of this encounter Visit Diagnoses Not on filedocumented in this encounter Care Teams Acquisitions Assistant Relationship Specialty Start Date End Date Deborah Quiroga APRN PCP - General Family Medicine 03/24/16 02/04/23 documented as of this encounter
--- OUTSIDE RECORDS SUMMARY | 2024-03-30 14:32 | XMS_ITS | Encounter Summary ---
[place] [address] Care Team Providers Care Medical Claims Representative Name Role Phone JunaidDeborah APRN Primary Care Provider [phone] Reason for Visit * Reason Onset Date Comments Labs Only 09/16/2016 Encounter Details Date Type Department Care Team (Late st Contact Info) Description 09/16/2016 Telephone Hematology [place] [address] Alexandrea Greenwood, RN Labs Only Social History [...] 09/16/2016 11:09 AM EST Message received from development educator: Purnima is having her Neulasta done today at [facility]. ??She is wondering if we want to do a CBC prior to the injection? [phone] Borjas: CBC is fine RN spoke with Swapna at [facility] who confirms they can draw CBC on pt today, RN faxed CBC w/diff to [facility] lab at [phone] RN relayed to pt that CBC ordered had been faxed to [facility], pt will have CBC drawn today prior to neulasta injection. documented in this encounter Plan of Treatment Upcoming Encounters Date Type Department Care Team (Late st Contact Info) Description 03/01/2025 4:15 PM EDT Office Visit Dermatology at [place] [address] [facility] [place] [address] Marek Bonilla MD [address], [place] [address] documented as of this encounter Results * [...] type documented in this encounter Care Teams Medical Claims Representative Relationship Specialty Start Date End Date Deborah Quiroga APRN PCP - General Family Medicine 03/24/16 02/04/23 documented as of this encounter
--- OUTSIDE RECORDS SUMMARY | 2024-03-30 14:32 | XMS_ITS | Encounter Summary ---
[place] [address] Care Team Providers Care Skills Auditor Name Role Phone Deborah Quiroga ANURAG Primary Care Provider [phone] Encounter Details Date Type Department Care Team (Late st Contact Info) Description 07/22/2016 External Results Hematology [place] [address] Alexandrea Greenwood RN Neutropenia, unspecified type Social [...] Office Visit Dermatology at [place] [address] [place] [address] Marek Bonilla MD [address], [place] [address] documented as of this encounter Procedures Procedure Name Priority Date/Time Associated Diagnosis Comments COPPER, SERUM Routine 07/20/2016 10:30 AM EST Neutropenia, unspecified type CMV PCR, QUANTITATIVE Routine 07/20/2016 10:30 AM EST Neutropenia, unspecified type MONONUCLEOSIS SCREEN ([facility]) Routine 07/20/2016 10:30 AM EST Neutropenia, unspecified type CBC (WITH DIFF) Routine 07/20/2016 10:30 AM EST Neutropenia, unspecified type documented in this encounter Results * Copper, serum (07/20/2016 10:30 AM EST) Copper (NOVEMBER) 1.09 0.75 - 1.45 EXTERNAL LAB Blood specimen (specimen) 07/20/2016 10:30 AM EST Markel Borjas MD LAB SEND OUT ORDER JODIE Performing Organization Address [facility] Co de Phone Number EXTERNAL LAB * CMV PCR, Quantitative (07/20/2016 10:30 AM EST) CMV PCR,Quantitati ve undetected EXTERNAL LAB Blood specimen (specimen) 07/20/2016 10:30 AM EST Markel Borjas MD MOLECULAR ORDERABL ES Performing Organization Address [facility] Co de Phone Number EXTERNAL LAB * Mononucleosis Screen (07/20/2016 10:30 AM EST) Mononucleosis Screen neg neg - neg EXTERNAL LAB Blood specimen (specimen) 07/20/2016 10:30 AM EST Markel Borjas MD IMMUNOLOGY ORDERAB LES Performing Organization Address [facility] Co de Phone Number EXTERNAL LAB [...] type documented in this encounter Care Teams Skills Auditor Relationship Specialty Start Date End Date Deborah Quiroga, DIMENSIONAL ENGINEER PCP - General Family Medicine 03/24/16 02/04/23 documented as of this encounter
--- OUTSIDE RECORDS SUMMARY | 2024-03-30 14:32 | XMS_ITS | Encounter Summary ---
Author Organization [facility] [place] [address] Care Team Providers Care Direct Marketing Executive Name Role Phone Deborah Quiroga APRN Primary Care Provider [phone] Encounter Details Date Type Department Care Team (Late st Contact Info) Description 08/18/2016 4:20 PM EST Clinical [place] [address] Social History Tobacco Use Types Packs/Day Years [...] 4:15 PM EDT Office Visit Dermatology at [place] [address] [place] [address] Marek Bonilla MD [address], [place] [address] documented as of this encounter Visit Diagnoses Not on filedocumented in this encounter Care Teams Direct Marketing Executive Relationship Specialty Start Date End Date Deborah Quiroga APRN PCP - General Family Medicine 03/24/16 02/04/23 documented as of this encounter
--- OUTSIDE RECORDS SUMMARY | 2024-03-30 14:32 | XMS_ITS | Encounter Summary ---
[place] [address] Care Team Providers Care Chief Unit Forester Name Role Phone Ashley Quirogan Cornelius ANURAG Primary Care Provider [phone] Reason for Visit * Reason Onset Date Comments Medication Management 09/14/2016 Encounter Details Date Type Department Care Team (Late st Contact Info) Description 09/14/2016 Telephone Hematology [place] [address] Alexandrea Greenwood, e commerce developer Management Social History Tobacco Use Types Packs/Day [...] 09/14/2016 9:12 AM EST Message received from clerk secretary: Purnima called, asking for clarification on [...] 4:15 PM EDT Office Visit Dermatology at [place] [address] [facility] [place] [address] Maerk Bonilla MD [address] [place] [address] documented as of this encounter Visit Diagnoses Not on filedocumented in this encounter Care Teams Chief Unit Forester Relationship Specialty Start Date End Date Deborah Quiroga APRN PCP - General Family Medicine 03/24/16 02/04/23 documented as of this encounter
--- OUTSIDE RECORDS SUMMARY | 2024-03-30 14:32 | XMS_ITS | Encounter Summary ---
Author Organization [facility] [address] Care Team Providers Care Lobby Concierge Name Role Phone Deborah Quiroga APRN Primary Care Provider Encounter Details Date Type Department Care Team (Latest Contact Info) Description 07/10/2016 2:54 PM EST - 07/10/2016 11:59 PM EST [place] [address] Discharge Disposition: Home Social History Tobacco Use [...] 4:15 PM EDT Office Visit Dermatology at [place] [address] [place] [address] Marek Bonilla MD [address] [place] [address] documented as of this encounter Procedures Procedure Name Priority Date/Time Associated Diagnosis Comments BONE MARROW FINAL REPORT Routine 07/10/2016 3:43 PM EST documented in this encounter Results * Bone Marrow Final Report (07/10/2016 3:43 PM EST) Final Diagnosis [id number] ?Location: [facility] The signing pathologist has (i) examined the relevant preparation(s) for the specimen(s) and (ii) rendered or confirmed the diagnosis(es). . ? Bone Marrow Final DIAGNOSIS BONE MARROW (PERIPHERAL SMEAR, ASPIRATE SMEAR, TOUCH PREP, CLOT SECTION, CORE BIOPSY); [OSR# [id number], COLLECTED 06/23/2016, 19 SLIDES]: ?? 1. ??Normocellular [...] clonal lymphoproliferative or myeloproliferative ? disorder (OSR# [id number]) ?Chromosome analysis on the marrow aspirate revealed a normal female karyotype; ?46,XX[25] ??(OSR# [id number]) Electronically signed by: ??Elian Guillen MD Verified: [...] 3/uL Band/Seg 0.52 x103/uL; Lymph 0.75 x103/uL; Norman 0.15 x103/uL; Eos 0.01%; Baso 0.01 x10 [...] plasma cells represent 3-4% of the cellularity Pattison ? Polytypic plasma cell staining, high background Lambda ?Polytypic plasma cell staining, high background Block: ? B2 (Core biopsy 2) Fixative: ?? Formalin ANTIBODY: ?? RESULT/COMMENT CD3 ? Scattered small lymphocytes and lymphoid aggregates highlighted CD20 ?Few scattered small lymphocytes stain ( ?? <CD3 in aggregates) CD138 ? Scattered plasma cells represent 3-4% of the cellularity Pattison ? Polytypic plasma cell staining, high background Lambda ?Polytypic plasma cell staining, high background Note: The immunoperoxidase stains reported above were developed and their performance characteristics determined by [facility]. ??They have not been cleared [...] CONSULTATION CASE A - 19 slides labeled [id number], collection date 06/23/2016. [id number] Report to: [facility] Surgical Pathology Department [facility], [facility], [address]nd Floor [address] [place], [place] [address] 07/13/2016 11:38 AM EST [facility] Consult Case 07/10/2016 3:43 PM EST 07/10/2016 3:43 PM EST Nitesh Pina Jr., MD PATHOLOGY/CYTOLOGY O RDERABLES Performing Organization Address City/State/[facility] Co de Phone Number [facility] [place] [address] documented in this encounter Visit Diagnoses Not on filedocumented in this encounter Care Teams Lobby Concierge Relationship Specialty Start Date End Date eDborah Quiroga, ANURAG PCP - General Family Medicine 03/24/16 02/04/23 documented as of this encounter
--- OUTSIDE RECORDS SUMMARY | 2024-03-30 14:32 | XMS_ITS | Encounter Summary ---
[place] [address] Care Team Providers Care Piano Bench Assembler Name Role Phone Deborah Quiroga APRN Primary Care Provider [phone] Encounter Details Date Type Department Care Team (Late st Contact Info) Description 08/04/2016 External Results [place]ology [place] [address] Alexandrea Greenwood RN Neutropenia, unspecified type Social [...] 4:15 PM EDT Office Visit Dermatology at [place] [address] [place] [id number] Marek Bonilla MD [address], [place] [address] documented as of this encounter Procedures Procedure [...] type documented in this encounter Care Teams Piano Bench Assembler Relationship Specialty Start Date End Date Deborah Quiroga, INFORMATION ASSURANCE ENGINEER PCP - General Family Medicine 03/24/16 02/04/23 documented as of this encounter
--- OUTSIDE RECORDS SUMMARY | 2024-03-30 14:32 | XMS_ITS | Encounter Summary ---
[place] [address] Care Team Providers Care Dressmaking Teacher Name Role Phone Ashley Quirogazac Shields APRN Primary Care Provider [phone] Reason for Visit * Auth/Cert Specialty Diagnoses / Procedures Referred By Crispin t Referred To Contact Diagnoses Aortic stenosis Procedures PRO REPLACE AORT VALV, PROSTH VALV @REPLACE AORTIC VALVE, OPEN, W\CPB, W\PROSTHETIC VALVE (WRVU 41.32) Referral ID Status Reason Start Date Expiration Date Visits Re quested Visits Authorized [id number] 1 1 Encounter Details Date Type Department Care Team (Late st Contact Info) Description 09/21/2016 7:30 AM EST - 09/21/2016 12:04 PM EST Surgery [place] [address] Alirio Esparza MD @REPLACE AORTIC VALVE, OPEN, [...] Patient Age: 61 y.o. Birthdate: 1955 Language: Czech Race: White Ethnicity: Not nor Admit Date: 09/21/2016 Discharge Date: 09/25/2016 Attending Physician: Alirio Esparza MD Follow-up Recommendations for Providers: Please continue routine management of cardiovascular risk factors including blood pressure, lipids,glucose, etc. Please note any changes to medications. Patient to follow-up with PCP, Deborah Quiroga APRN, in 1-2 weeks. Patient to follow-up with Wildland Fire Fighter, Dr. Antelmo Burrell, in two weeks. Patient to follow-up with Cardiac Surgery, Dr. Alirio Esparza, to be scheduled for before 10/19/2016, with CXR, EKG, and Echo. Inpatient Provider Contact Information: [facility] Section of Cardiac Surgery [facility] [place] [address] FAX [phone] Discharge Diagnoses (Hospital Problems) Primary Diagnoses: Secondary [...] 41.32) performed by Alirio Esparza MD at [facility] MAIN OR ??? Pro aortoplas for supravalv sten N/A 09/21/2016 @AORTOPLASTY FOR SUPRAVALVULAR STENOSIS (WRVU 29.33) performed by Alirio Esparza MD at [facility] MAIN OR Prior To Admission Medications [...] Hospital Course: Purnima Thacker was admitted to [facility] on 09/21/2016 via the Same Day [...] Alirio Esparza and/or the Cardiac Surgery Physician Marine Surveyor Team may be reached at . Antibiotic [...] Dr. Alirio Jones. You may use a Staint [place]air Track or treadmill but avoid any pulling [...] friends, go to a movie, go to mormon, etc. Heavy activities: No hunting, skiing, jogging, [...] outpatient Phase 2 Cardiac Rehabilitation at [facility]. The patient agrees to a referral to this program. The referral will be sent at discharge and the patient should be contacted by the program within 1- 2 weeks from discharge. Future Appointments and Orders Future Appointments Provider Department Dept Phone 11/20/2016 11:30 AM Markel Borjas MD [facility] [phone] Future Orders Complete By Expires Echocardiogram Transthoracic([facility]) [DPG779 Custom] 10/18/2016 (Approximate) 09/18/2017 Process Instructions: If the Echocardiogram is to be PERFORMED in a DH location other than [place]--STOP and order [id number], Echocardiogram South/External. Scheduling Instructions: Questions: Is a Bubble Study requested?: No Does the patient have Congenital Heart Disease?: No Does patient require sedation?: None GA rationale: Should this service be billed to the research sponsor?: EKG 12 Lead [EKG1 Custom] 10/18/2016 (Approximate) 09/25/2017 Process Instructions: Scheduling Instructions: Questions: Which DH location will this be performed?: [place] Is a rhythm strip needed?: No If EKG Reason is Pre-op Evaluation, indicate diagnosis for surgery.: Should this service be billed to the research sponsor?: XR Chest PA & Lateral (Generic) [99107 [id number] Custom] 10/18/2016 (Approximate) 09/25/2017 Process Instructions: Scheduling Instructions: Questions: Where will study be performed?: [facility]- Radiology Portable exam?: No Reason for exam and clinical history: s/p AVReplacement, patch annuloplasty 1 month f/u Other pertinent information: Stat read required?: Date of injury if applicable: Requested Time: Referral to Cardiac Rehab [VRK200 Custom] As directed Process Instructions: If no progress note charted, please enter Clinical details in comments. Scheduling Instructions: Questions: My question or request is: s/p AVR. Cardiac rehab at [facility] Referral to Home Health - at DISCHARGE [[id number] CPT(R)] As directed Process Instructions: Scheduling Instructions: Comments: DOCUMENTATION FOR VNA SERVICES (INCLUDING THOSE PATIENTS WITH MEDICARE COVERAGE REQUIRING HOME VNA SERVICES AND/OR HOSPICE SERVICES) PATIENT'S LOCATION: Purnimakary Gallego[address] [address] (home) No relevant phone numbers on file. Otm Consultant's Name: self In discussion with the attending physician, it is certified that this patient is under their care and that they, or a Nurse Practitioner, or Physician Marine Surveyor who is working directly with them, hada [...] [facility] PHONE: [phone] FAX: [phone] RN orders: Cardiopulmonary assessment, incisional assessment, assess [...] issues please call the Cardiac SurgeryOffice at [phone] FOR MEDICARE ONLY: In discussion with the [...] noted. Questions: Agency name and contact information: [facility] Patient location post discharge: home What services are requested: Registered Nurse Physical Therapy Occupational Therapy Start date: Responsible MD post discharge contact info: Arrangements for VNA/home care: As above. VN RN OR PCP TO PLEASE REMOVE CHEST TUBE SUTURES ON OR AFTER 09/30/16 Signed: Crispin Aranda PA-C 09/25/2016 [facility] Section of Cardiac Surgery [facility] [place] [address] FAX [phone] Date: 09/25/2016 CC: ANURAG Alford Caryn E, APRN [address] [place] [address] documented in this encounter Discharge Instructions * [...] Alirio Esparza and/or the Cardiac Surgery Physician Marine Surveyor Team may be reached at . Antibiotic [...] Dr. Alirio Jones. You may use a [place] Track or treadmill but avoid any pulling [...] friends, go to a movie, go to mormon, etc. Heavy activities: No hunting, skiing, jogging, [...] outpatient Phase 2 Cardiac Rehabilitation at [facility]. The patient agrees to a referral [...] PM EST Cardiac Surgery Progress Note: ID: [id number] S/p AVR, patch aortoplasty POD#2. PMH of [...] Gas) No results found for: PHART, PO2ART, JJZ2HEM Assessment/Plan: TPW out this am. (+) BM. [...] Signed: Crispin Aranda PA-C 09/24/2016 Team pager: [phone]; [phone] after 5pm [facility] Section of Cardiac Surgery * Leonor Henson S, POLICY DIRECTOR - 09/23/2016 10:48 AM EST Cardiac Surgery Progress Note: ID: [id number] s/p AVR, patch aortoplasty POD#2. PMH of [...] Gas) No results found for: PHART, PO2ART, OEN3IXK Assessment/Plan: s/p AVR, patch aortoplasty POD#2. PMH of Neutropenia, HLD, HTN, Depression, obesity, . Transferred from [facility] yesterday and doing well. Pathway. Will [...] Surgeon on rounds. Signed: Leonor Henson APRN [facility] Section of Cardiac Surgery Date: 09/23/2016 * Nico Palacios PA - 09/22/2016 9:56 AM EST Cardiac Surgery Progress Note: ID: [id number] s/p AVR, patch aortoplasty POD#1. PMH of [...] NT, ND, soft. Ext: Moves all extremities. [place], well perfused. Incisions: C/D/I Tubes/Lines/Drains: PIV, richi, [...] Attending Surgeon on rounds. Signed: EKATERINA KIM [facility] Section of Cardiac Surgery Date: 09/22/2016 [...] left pleural effusion. T/L/D Al ETT CVL [place] CT Pacing wires ASSESSMENT, MANAGEMENT, and DECISION [...] Outcome (s) achieved Date Met: 09/25/16 09/25/16 3518 Coping/Psychosocial Plan Of Care Reviewed With patient [...] health, home with outpatient services Lalitha Cohen [facility] Pager: [phone] Inpatient Physical Therapy Patient status, treatment interventions, and goals discussed with student. I am in agreement with all details and associated flowsheet rows as documented and was present for all aspects of the patient treatment session. Nery Jaramillo, CANDY Pager [phone] Problem: Acute Rehab Services Goal & Intervention Plan Goal: Bed Mobility Goal Stand Alone Therapy Goal Outcome: Ongoing (Interventions Implemented as Appropriate) 09/22/16 1611 09/25/16 0947 Bed Mobility Goal Bed Mobility Goal, Time to Achieve 4 days -- Bed Mobility Goal, Activity Type scoot/bridge;supine to sit/sit to supine -- Bed Mobility Goal, Newport Level independent -- Bed Mobility Goal, Additional [...] Achieve 4 days -- Gait Training Goal, Newport Level independent -- Gait Training Goal, Distance [...] assist, home with home health [facility] Pager: [phone] Inpatient Physical Therapy Patient status, treatment interventions, and goals discussed with student. I am in agreement with all details and associated flowsheet rows as documented and was present for all aspects of the patient treatment session. Nery Jaramillo, CARPENTER [employer]ING Pager [phone] Problem: Acute Rehab Services Goal & Intervention Plan Goal: Bed Mobility Goal Stand Alone Therapy Goal Outcome: Ongoing (Interventions Implemented as Appropriate) 09/22/16161009/23/161411 Bed Mobility Goal Bed Mobility Goal, Time to Achieve 4 days -- Bed Mobility Goal, Activity Type scoot/bridge;supine to sit/sit to supine -- Bed Mobility Goal, Newport Level independent -- Bed Mobility Goal, Additional [...] Achieve 4 days -- Gait Training Goal, [place] Level independent -- Gait Training Goal, Distance [...] days -- Transfer Training Goal, Activity Type erq-mi-kuukr/gdmcu-rp-kdy;ice-qo-atqjj/uvdvk-tc-fzb -- Transfer Train Goal, Newport Level independent -- Transfer Training Goal, Additional Goal abides sternal precautions -- Transfer Training Goal, Outcome -- goal met * Consult Note - Jana Crenshaw RN - 09/23/2016 9:41 AM EST [facility] CARDI[facility]HABILITATION Purnima Thacker was seen today regarding participation in the outpatient Phase 2 Cardiac Rehabilitation at [facility]. The patient agrees to a referral [...] Another Service: (cardiac rehab) NICOLE HERNANDEZ, PT Pager:[phone] Inpatient Physical Therapy Problem: Acute Rehab Services Goal & Intervention Plan Goal: Bed Mobility Goal Stand Alone Therapy Goal Outcome: Ongoing (Interventions Implemented as Appropriate) 09/22/161610 Bed Mobility Goal Bed Mobility Goal, Time to Achieve 4 days Bed Mobility Goal, Activity Type scoot/bridge;supine to sit/sit to supine Bed Mobility Goal, Newport Level independent Bed Mobility Goal, Additional Goal able to abide sternal precautions during transfers Goal: Gait Training Goal Stand Alone Therapy Goal Outcome: Ongoing (Interventions Implemented as Appropriate) 09/22/161610 Gait Training Goal Gait Training Goal, Date Established 09/22/16 Gait Training Goal, Time to Achieve 4 days Gait Training Goal, Newport Level independent Gait Training Goal, Distance to Achieve ascend and descends 2 steps independently Goal: Goal Transfer Training Stand Alone Therapy Goal Outcome: Ongoing (Interventions Implemented as Appropriate) 09/22/161610 Goal Transfer Training Transfer Training Goal, Time to Achieve 4 days Transfer Training Goal, Activity Type hko-nw-fieew/tzsgx-kx-age;yow-mz-azsxy/ouzqt-qr-opr Transfer Train Goal, Newport Level independent Transfer Training Goal, Additional Goal [...] of completing AD's at home, chooses her mehhzj-kq-wgo, Martha Thacker (home) for her DPOAH, 2nd choice in friend, Nitesh Rad, [place], [place] Current Coping/Education/Information Needs: patient sitting up [...] close by, Rashad & Raymond, and her sxjxkm-ed-tko Martha Thacker who she has chosen to be her DPOAH. Also has a friend Nitesh Leroy who lives in [place], [place], also her DPOAH choice. Behavioral Health History: none on file in e[facility] Substance Use/Abuse: none on file in [facility] Other Pertinent/Service Specific Information: none Health/Prescription Coverage: Primary Insurance: [employer] Secondary Insurance: none Prescription Coverage: yes, per patient no issues Preferred Pharmacy: ?? Other: none Primary Care Provider: Deborah Quiroga, POLICY DIRECTOR [phone] Patient/Caregiver Goals of Treatment: per medical team recommendations at discharge for CT surgery Potential Needs for Transition of Care: Rehab/SNF: TBD Home Health: TBD DME: no Dialysis: no Community Resources: non3 Transportation: ride home with a friend Other: none Anticipated Barriers to Discharge/Special Considerations: none anticipated at this time Plan: patient will need VNA services at discharge. The patient/business center representative has been provided a list of Home Health Agencies/DME vendors which servetheir preferred geographic area. A letter describing our affiliations was reviewed with them and they were educated about their right to choose where referrals are placed. Patient requests referral to: [facility]. PHONE: [phone] FAX: [phone] Expected date of discharge: Fri/Sat? CM called VNA to confirm referral, talked with VALDO Bunn/intake who stated she was familiar w/patient & would monitor her progress through curaspan. Referral routed to the Internist for matching with agency/vendor and to provide any required information. A member of the Care Management team will continue to monitor progress, follow for continuity of care and assist with transition of care planning. Amanda Moreno RN Pager: [phone] * Op Note - Alirio Esparza MD - 09/21/2016 12:53 PM EST 09/23/2016 Purnima Thacker 1955 [id number] Preoperative Diagnosis: Symptomatic aortic stenosis Postoperative Diagnosis: Symptomatic aortic stenosis Procedure: Aortic valve replacement: Bovine Pericardial 25 mm Surgeon: Alirio Esparza M.D. Marine Surveyor: Philip BALL Anesthesia: General endotracheal anesthesia Drains: [...] applied. The patient was transported to the [facility] on levo. All counts were correct. [...] Operative Note Patient Name: Purnima Thacker : [id number] MR#: [id number] Case Date: 09/21/2016 Surgeon: Surgeon(s) and Role: * Alirio Esparza MD - Primary * Nico Palacios PA - Physician Marine Surveyor Preoperative diagnosis: Postoperative diagnosis: Procedure(s) (LRB): @REPLACE [...] EDT Office Visit D[facility] at [place] [address] [place] [address] Marek Bonilla MD [address], [place] [address] Scheduled Orders Name Type Priority Associated Diagnoses [...] IMPLANTABLE DEVICES SCAN 09/26/2016 12:00 AM EST COLOR CONTROL SUPERVISOR SCAN 09/26/2016 12:00 AM EST POTASSIUM Routine [...] SCAN EXT O RDR/RSLT * SCAN DOC: COLOR CONTROL SUPERVISOR (09/26/2016 12:00 AM EST) Anatomical Region Laterality Modality Other Narrative 09/26/2016 12:00 AM EST Ordered by an unspecified provider. Scanning Provider MEDIA MGR SCAN EXT O RDR/RSLT * Potassium (09/25/2016 4:32 AM EST) Potassium 4.4 3.5 - 5.0 mmol/L [facility] [...] MD CHEMISTRY ORDERABLE S Performing Organization Address [facility] Co de Phone Number [facility] [place] [address] * (ABNORMAL) Differential, Automated (09/24/2016 9:56 AM EST) Neutrophil % 76.8 % [facility] Neutrophil Absolute 7.79(H) 1.70 - 6.10 x10(3)/mc L [facility] Lymph % 11.1 % [facility] Lymphocytes Abs 1.1 0.9 - 3.2 x10(3)/mc L [facility] Monocyte % 8.5 % [facility] Monocyte Abs 0.9 0.3 - 0.9 x10(3)/mc L [facility] Eos % 0.5 % [facility] Eosinophils Abs 0.0 0.0 - 0.4 x10(3)/mc L [facility] Basophil % 0.2 % [facility] Baso Absolute 0.0 0.0 - 0.1 x10(3)/mc L [facility] Immature Gran % 2.90 % [facility] Comment: Immature granulocytes(IG's)percentage and absolute count will include metamyelocytes, myelocytes, and promyelocytes. Blood smears from CBCs yielding IG's will be scanned manually for concordance. If this scan disagrees with the automated IG or if promyelocytes are noted, a manual differential will be performed. Immature Gran Absolute 0.29(H) 0.00 - 0.04 x10(3)/mc L [facility] Blood specimen (specimen) 09/24/2016 9:56 AM EST 09/24/2016 10:04 AM EST Narrative Resulting Agency Comment Spec In Lab Alirio Esparza MD HEMATOLOGY ORDERABL ES Performing Organization Address [facility]/ZIP Co de Phone Number [facility] [place] [address] * (ABNORMAL) Hemogram (09/24/2016 9:56 AM EST) White Blood Cell 10.1(H) 4.0 - 9.5 x10(3)/mc L [facility] Red Blood Cell 2.87(L) 4.00 - 5.21 x10(6)/mc L [facility] Hemoglobin 9.4(L) 11.7 - 15.5 gm/dL [facility] Hematocrit 28.3(L) 35.7 - 45.8 % [facility] Mean Cell Volume 98.6(H) 82.6 - 94.4 fL [facility] Mean Cell Hemoglobin 32.8(H) 27.1 - 32.0 pg [facility] Mean Cell Hemoglobin Concentration 33.2 31.7 - 35.0 gm/dL [facility] Platelet 141(L) 145 - 357 x10(3)/mc L [facility] RDW Standard Deviation 45.0 37.0 - 46.0 [facility] RDW coefficient of variation 12.6 11.5 - 14.1 % [facility] Mean Platelet Volume 9.4 7.6 - 12.9 fL [facility] NRBC% auto 1.1 % [facility] NRBC Absolute 0.110(H) 0.000 - 0.000 x10(3)/mc L [facility] Blood specimen (specimen) 09/24/2016 9:56 AM EST 09/24/2016 10:04 AM EST Narrative Resulting Agency Comment Spec In Lab Alirio Esparza MD HEMATOLOGY ORDERABL ES Performing Organization Address City/[facility]/ZIP Co de Phone Number [facility] [place] [address] * (ABNORMAL) Basic Metabolic Panel (non-fasting) (09/24/2016 9:56 AM EST) Glucose 111 65 - 199 mg/dL [facility] Comment:Diabetes: >=200 mg/d L plus symptoms Blood Urea Nitrogen 23(H) 8 - 18 mg/dL [facility] Comment:result rechecked-ART Creatinine 0.89 0.70 - 1.20 mg/dL [facility] Comment: Please note that the pediatric reference intervals supplied above were not validated at [facility]. Results from pediatric patients should be interpreted in conjunction to the patient's age, height and muscle mass. Sodium 138 135 - 145 mmol/L [facility] Potassium 4.2 3.5 - 5.0 mmol/L [facility] Comment: Please note: ??Patients with WBC >100,000 may have falsely elevated Potassium levels. ??For accurate Potassium quantification in these patients send serum separator tube (gold top) for subsequent determinations. ??Contact the Clinical Chemistry Laboratory if there are any questions. Chloride 98 98 - 107 mmol/L [facility] Carbon Dioxide 26 22 - 31 mmol/L [facility] Anion Gap 14 5 - 15 mmol/L [facility] Calcium 9.1 8.5 - 10.5 mg/dL [facility] Est Glomerular Filtration Rate >60 >=60 [facility] [...] the following links into your internet browser. [email or web address]/DHnkdep [email or web address]/DHMCnkf Blood specimen (specimen) 09/24/2016 9:56 AM EST 09/24/2016 10:04 AM EST Narrative Resulting Agency Comment Spec In Lab Alirio Esparza MD CHEMISTRY ORDERABLE S [facility] [place] [address] * XR Chest PA & Lateral (Generic) [...] EST) Potassium 4.5 3.5 - 5.0 mmol/L [facility] [...] MD CHEMISTRY ORDERABLE S Performing Organization Address [facility]/ZIP Co de Phone Number [facility] [place] [address] * POCT Glucose (09/22/2016 8:17 AM EST) Glucose, POC 131 65 - 199 mg/dL [facility] Comment: Supplemental ranges: <140 mg/dL before meals <180 mg/dL all other times of the day Blood specimen (specimen) 09/22/2016 8:17 AM EST 09/22/2016 8:17 AM EST Alirio Esparza MD POINT OF CARE TEST ORDERABLES Performing Organization Address [facility] Co de Phone Number [facility] [place] [address] * POCT Glucose (09/22/2016 4:01 AM EST) Glucose, POC 135 65 - 199 mg/dL [facility] Comment: Supplemental ranges: <140 mg/dL before meals <180 mg/dL all other times of the day Blood specimen (specimen) 09/22/2016 4:01 AM EST 09/22/2016 4:01 AM EST Alirio Esparza MD POINT OF CARE TEST ORDERABLES Performing Organization Address [facility] Co de Phone Number [facility] [place] [address] * Scan, Peripheral Blood (09/22/2016 4:00 AM EST) Plat estimate Normal [facility] RBC Morphology Abnormal [facility] Macrocyte 1-5 /HPF [facility] Plat, Giant Less than 1 /HPF [facility] Blood specimen (specimen) 09/22/2016 4:00 AM EST 09/22/2016 4:34 AM EST Narrative Resulting Agency Comment Spec In Lab Alirio Esparza MD HEMATOLOGY ORDERABL ES Performing Organization Address [facility]/ZIP Co de Phone Number [facility] [place] [address] * Electrolytes panel (09/22/2016 4:00 AM EST) Pathologist [facility] Sodium 145 135 - 145 mmol/L [facility] Potassium 4.4 3.5 - 5.0 mmol/L [facility] Comment: Please note: ??Patients with WBC >100,000 may have falsely elevated Potassium levels. ??For accurate Potassium quantification in these patients send serum separator tube (gold top) for subsequent determinations. ??Contact the Clinical Chemistry Laboratory if there are any questions. Chloride 107 98 - 107 mmol/L [facility] Carbon Dioxide 24 22 - 31 mmol/L [facility] Anion Gap 14 5 - 15 mmol/L [facility] Blood specimen (specimen) Venous Draw / Unknown 09/22/2016 4:00 AM EST 09/22/2016 4:34 AM EST Narrative Resulting Agency Comment Spec In Lab Alirio Esparza MD CHEMISTRY ORDERABLE S Performing Organization Address [facility]/ZIP Co de Phone Number [facility] [place] [address] * (ABNORMAL) Differential, Automated (09/22/2016 4:00 AM EST) Pathologist [facility] Neutrophil % 70.9 % [facility] Neutrophil Absolute 5.33 1.70 - 6.10 x10(3)/mc L [facility] Lymph % 9.1 % [facility] Lymphocytes Abs 0.7(L) 0.9 - 3.2 x10(3)/mc L [facility] Monocyte % 18.0 % [facility] Monocyte Abs 1.4(H) 0.3 - 0.9 x10(3)/mc L [facility] Eos % 0.0 % [facility] Eosinophils Abs 0.0 0.0 - 0.4 x10(3)/ L [facility] Basophil % 0.1 % [facility] Baso Absolute 0.0 0.0 - 0.1 x10(3)/ L [facility] Immature Gran % 1.90 % [facility] Comment: Immature granulocytes(IG's)percentage and absolute count will include metamyelocytes, myelocytes, and promyelocytes. Blood smears from CBCs yielding IG's will be scanned manually for concordance. If this scan disagrees with the automated IG or if promyelocytes are noted, a manual differential will be performed. Immature Gran Absolute 0.14(H) 0.00 - 0.04 x10(3)/[facility] Blood specimen (specimen) 09/22/2016 4:00 AM EST 09/22/2016 4:34 AM EST Narrative Resulting Agency Comment Spec In Lab Alirio Esparza MD HEMATOLOGY ORDERABL ES Performing Organization Address City/State/[facility] Co de Phone Number [facility] [place] [phone] * (ABNORMAL) Hemogram (09/22/2016 4:00 AM EST) White Blood Cell 7.5 4.0 - 9.5 x10(3)/ L [facility] Red Blood Cell 2.93(L) 4.00 - 5.21 x10(6)/ L [facility] Hemoglobin 9.2(L) 11.7 - 15.5 gm/dL [facility] Hematocrit 28.0(L) 35.7 - 45.8 % [facility] Mean Cell Volume 95.6(H) 82.6 - 94.4 fL [facility] Mean Cell Hemoglobin 31.4 27.1 - 32.0 pg [facility] Mean Cell Hemoglobin Concentration 32.9 31.7 - 35.0 gm/dL [facility] Platelet 161 145 - 357 x10(3)/ L [facility] RDW Standard Deviation 44.0 37.0 - 46.0 fL [facility] RDW coefficient of variation 12.6 11.5 - 14.1 % [facility] Mean Platelet Volume 9.3 7.6 - 12.9 fL [facility] NRBC% auto 0.3 % [facility] NRBC Absolute 0.020(H) 0.000 - 0.000 x10(3)/mc L [facility] Blood specimen (specimen) 09/22/2016 4:00 AM EST 09/22/2016 4:34 AM EST Narrative Resulting Agency Comment Spec In Lab Alirio Esparza MD HEMATOLOGY ORDERABL ES [facility] [place] [phone] * (ABNORMAL) Cardiac Enzymes (09/22/2016 4:00 AM EST) Troponin-T 0.13(H) <=0.03 ng/mL [facility] Comment: 0.03 ng/mL: Represents the 99th percentile upper reference limit for normals. >0.03 ng/mL: Elevated cardiac troponin T level indicative of myocardial damage. Diagnosis of acute, evolving or recent DE requires a typical rise and gradual fall [...] [employer] 2000; 36: 959-969] Creatine Kinase 338(H) 0 - 160 unit/L [facility] Blood specimen (specimen) 09/22/2016 4:00 AM EST 09/22/2016 4:34 AM EST Narrative Resulting Agency Comment Spec In Lab Alirio Esparza MD CHEMISTRY ORDERABLE S Performing Organization Address [facility] Co de Phone Number [facility] [place] [address] * (ABNORMAL) Glucose, fasting (09/22/2016 4:00 AM EST) Glucose Fasting 137(H) 65 - 99 mg/dL [facility] Comment: ?Fasting* Glucose Interpretive Criteria [...] MD CHEMISTRY ORDERABLE S Performing Organization Address [facility] Co de Phone Number [facility] [place] [address] * (ABNORMAL) Creatinine (09/22/2016 4:00 AM EST) Creatinine 0.69(L) 0.70 - 1.20 mg/dL [facility] Comment: Please note that the pediatric reference intervals supplied above were not validated at [facility]. Results from pediatric patients should be interpreted in conjunction to the patient's age, height and muscle mass. Est Glomerular Filtration Rate >60 >=60 [facility] [...] the following links into your internet browser. [email or web address] Blood specimen (specimen) 09/22/2016 4:00 AM EST 09/22/2016 4:34 AM EST Narrative Resulting Agency Comment Spec In Lab Alirio Esparza MD CHEMISTRY ORDERABLE S Performing Organization Address [facility] Co de Phone Number [facility] [place] [address] * BUN (09/22/2016 4:00 AM EST) Blood Urea Nitrogen 10 8 - 18 mg/dL [facility] Blood specimen (specimen) 09/22/2016 4:00 AM EST 09/22/2016 4:34 AM EST Narrative Resulting Agency Comment Spec In Lab Alirio Esparza MD CHEMISTRY ORDERABLE S Performing Organization Address [facility] Co de Phone Number [facility] [place] [address] * POCT Glucose (09/21/2016 9:59 PM EST) Glucose, POC 146 65 - 199 mg/dL [facility] Comment: Supplemental ranges: <140 mg/dL before meals <180 mg/dL all other times of the day Blood specimen (specimen) 09/21/2016 9:59 PM EST 09/21/2016 9:59 PM EST Alirio Esparza MD POINT OF CARE TEST ORDERABLES Performing Organization Address City/[facility] Co de Phone Number [facility] [place] [address] * POCT Glucose (09/21/2016 7:26 PM EST) [facility] Glucose, POC 152 65 - 199 mg/dL [facility] Comment: Supplemental ranges: <140 mg/dL before meals <180 mg/dL all other times of the day Blood specimen (specimen) 09/21/2016 7:26 PM EST 09/21/2016 7:26 PM EST Alirio Esparza MD POINT OF CARE TEST ORDERABLES [facility] [place] [address] * POCT Glucose (09/21/2016 6:00 PM EST) [facility] Glucose, POC 146 65 - 199 mg/dL [facility] Comment: Supplemental ranges: <140 mg/dL before meals <180 mg/dL all other times of the day Blood specimen (specimen) 09/21/2016 6:00 PM EST 09/21/2016 6:00 PM EST Alirio Esparza MD POINT OF CARE TEST ORDERABLES [facility] [place] [address] * (ABNORMAL) BLOOD GAS 2 ARTERIAL (09/21/2016 4:42 PM EST) [facility] pH, Arterial 7.35(L) 7.35 - 7.45 [facility] PCO2, Arterial 48(H) 35 - 45 mmHg [facility] PO2, Arterial 108(H) 85 - 104 mmHg [facility] Bicarbonate, Arterial 26.0 20.0 - 26.0 mmol/L [facility] Base Excess, Arterial 0.5 -3.0 - 3.0 mmol/L [facility] Hgb Blood Gas 10.4(L) 11.7 - 15.5 gm/dL [facility] Oxyhemoglobin, Arterial 96.2 94.0 - 97.0 % [facility] Carboxyhemoglob in, Arterial 0.0 % [facility] Comment: Nonsmokers: 0.5-1.5% COHB Smokers: Variable, but usually less than 10% Toxic: 20-30% COHB Lethal: Greater than 60% COHB Methemoglobin, Arterial 0.7 <=1.5 % [facility] Na Whole Blood 139 135 - 145 mmol/L [facility] K Whole Blood 4.2 3.5 - 5.0 mmol/L [facility] Comment: Please note: Patients with WBC >100,000 may have falsely elevated Potassium levels. Contact the Clinical Chemistry Laboratory if there are any questions. ICa Whole Blood 1.13(L) 1.15 - 1.33 mmol/L [facility] Comment: Note: ??Total bilirubin higher than 20 mg/dL may lead to falsely low ionized calcium. CL Whole Blood 106 98 - 107 mmol/L [facility] Gluc Whole Bld 147 65 - 199 mg/dL [facility] Comment:Diabetes: >=200 mg/d L plus symptoms. Lactate WB 1.2 0.5 - 2.2 mmol/L [facility] FIO2 Art 40 % [facility] PF Ratio Art 270 [facility] Blood specimen (specimen) 09/21/2016 4:42 PM EST 09/21/2016 4:42 PM EST Alirio Esparza MD POINT OF CARE TEST ORDERABLES [facility] [place] [address] * POCT Glucose (09/21/2016 4:07 PM EST) Glucose, POC 150 65 - 199 mg/dL [facility] Comment: Supplemental ranges: <140 mg/dL before meals <180 mg/dL all other times of the day Blood specimen (specimen) 09/21/2016 4:07 PM EST 09/21/2016 4:07 PM EST Alirio Esparza MD POINT OF CARE TEST ORDERABLES Performing Organization Address [facility] Co de Phone Number [facility] [place] [address] * (ABNORMAL) Hemoglobin (09/21/2016 4:05 PM EST) Hemoglobin 9.9(L) 11.7 - 15.5 gm/dL [facility] Blood specimen (specimen) 09/21/2016 4:05 PM EST 09/21/2016 4:20 PM EST Narrative Resulting Agency Comment Spec In Lab Alirio Esparza MD HEMATOLOGY ORDERABL ES Performing Organization Address [facility] Co de Phone Number [facility] [place] [address] * Potassium (09/21/2016 4:05 PM EST) [facility] Potassium 4.6 3.5 - 5.0 mmol/L [facility] [...] MD CHEMISTRY ORDERABLE S Performing Organization Address [facility] Co de Phone Number [facility] [place] [address] * POCT Glucose (09/21/2016 2:52 PM EST) Glucose, POC 117 65 - 199 mg/dL [facility] Comment: Supplemental ranges: <140 mg/dL before meals <180 mg/dL all other times of the day Blood specimen (specimen) 09/21/2016 2:52 PM EST 09/21/2016 2:52 PM EST Alirio Esparza MD POINT OF CARE TEST ORDERABLES Performing Organization Address [facility] Co de Phone Number [facility] [place] [address] * POCT Glucose (09/21/2016 1:51 PM EST) Glucose, POC 108 65 - 199 mg/dL [facility] Comment: Supplemental ranges: <140 mg/dL before meals <180 mg/dL all other times of the day Blood specimen (specimen) 09/21/2016 1:51 PM EST 09/21/2016 1:51 PM EST Alirio Esparza MD POINT OF CARE TEST ORDERABLES Performing Organization Address [facility] de Phone Number [facility] [place] [address] * POCT Glucose (09/21/2016 12:54 PM EST) Glucose, POC 128 65 - 199 mg/dL [facility] Comment: Supplemental ranges: <140 mg/dL before meals <180 mg/dL all other times of the day Blood specimen (specimen) 09/21/2016 12:54 PM EST 09/21/2016 12:54 PM EST Alirio Esparza MD POINT OF CARE TEST ORDERABLES Performing Organization Address [facility] Co de Phone Number [facility] [place] [address] * EKG 12 Lead (09/21/2016 12:26 PM EST) Ventricular rate 87 BPM MUSE SYSTEM Atrial Rate 87 BPM MUSE SYSTEM P-R Interval 256 ms MUSE SYSTEM QRS Duration 90 ms MUSE SYSTEM Q-T Interval 406 ms MUSE SYSTEM QTC Calculated (Bezet) 488 ms MUSE SYSTEM Calculated P [place]und[place] 24 degrees MUSE SYSTEM Calculated R [place] 21 degrees MUSE SYSTEM Calculated T [place]und[place] -5 degrees MUSE SYSTEM INTERPRETATION Sinus rhythm [...] course of the esophagus and below the [id number]. There is a right IJ PA catheter [...] the course of theesophagus and below the [id number]. There is a right IJ PA catheter [...] EST) pH, Arterial 7.41 7.35 - 7.45 [facility] PCO2, Arterial 42 35 - 45 mmHg [facility] PO2, Arterial 356(H) 85 - 104 mmHg [facility] Bicarbonate, Arterial 26.2(H) 20.0 - 26.0 mmol/L [facility] Base Excess, Arterial 1.6 -3.0 - 3.0 mmol/L [facility] Hgb Blood Gas 10.7(L) 11.7 - 15.5 gm/dL [facility] Oxyhemoglobin, Arterial 98.1(H) 94.0 - 97.0 % [facility] Carboxyhemoglob in, Arterial 0.3 % [facility] Comment: Nonsmokers: 0.5-1.5% COHB Smokers: Variable, but usually less than 10% Toxic: 20-30% COHB Lethal: Greater than 60% COHB Methemoglobin, Arterial 0.8 <=1.5 % [facility] Na Whole Blood 140 135 - 145 mmol/L [facility] K Whole Blood 3.8 3.5 - 5.0 mmol/L [facility] Comment: Please note: Patients with WBC >100,000 may have falsely elevated Potassium levels. Contact the Clinical Chemistry Laboratory if there are any questions. ICa Whole Blood 1.15(L) 1.15 - 1.33 mmol/L [facility] Comment: Note: ??Total bilirubin higher than 20 mg/dL may lead to falsely low ionized calcium. CL Whole Blood 106 98 - 107 mmol/L [facility] Gluc Whole Bld 135 65 - 199 mg/dL [facility] Comment:Diabetes: >=200 mg/d L plus symptoms. Lactate WB 2.2 0.5 - 2.2 mmol/L [facility] FIO2 Art 100 % [facility] PF Ratio Art 356 [facility] Blood specimen (specimen) 09/21/2016 12:20 PM EST 09/21/2016 12:20 PM EST Alirio Esparza MD POINT OF CARE TEST ORDERABLES Performing Organization Address City/State/[facility] Co de Phone Number [facility] [place] [address] * (ABNORMAL) BLOOD GAS 2 ARTERIAL (09/21/2016 10:54 AM EST) pH, Arterial 7.43 7.35 - 7.45 [facility] PCO2, Arterial 40 35 - 45 mmHg [facility] PO2, Arterial 297(H) 85 - 104 mmHg [facility] Bicarbonate, Arterial 26.0 20.0 - 26.0 mmol/L [facility] Base Excess, Arterial 1.6 -3.0 - 3.0 mmol/L [facility] Hgb Blood Gas 8.6(L) 11.7 - 15.5 gm/dL [facility] Oxyhemoglobin, Arterial 98.6(H) 94.0 - 97.0 % [facility] Carboxyhemoglob in, Arterial 0.5 % [facility] Comment: Nonsmokers: 0.5-1.5% COHB Smokers: Variable, but usually less than 10% Toxic: 20-30% COHB Lethal: Greater than 60% COHB Methemoglobin, Arterial 0.3 <=1.5 % [facility] Na Whole Blood 134(L) 135 - 145 mmol/L [facility] K Whole Blood 4.5 3.5 - 5.0 mmol/L [facility] Comment: Please note: Patients with WBC >100,000 may have falsely elevated Potassium levels. Contact the Clinical Chemistry Laboratory if there are any questions. ICa Whole Blood 1.16 1.15 - 1.33 mmol/L [facility] Comment: Note: ??Total bilirubin higher than 20 mg/dL may lead to falsely low ionized calcium. CL Whole Blood 104 98 - 107 mmol/L [facility] Gluc Whole Bld 240(H) 65 - 199 mg/dL [facility] Comment:Diabetes: >=200 mg/d L plus symptoms. Lactate WB 2.4(H) 0.5 - 2.2 mmol/L [facility] FIO2 Art 95 % [facility] Flow Art 0.7 LPM [facility] PF Ratio Art 313 [facility] Temp Art 36.7 Celsius [facility] Blood specimen (specimen) 09/21/2016 10:54 AM EST 09/21/2016 10:54 AM EST Alirio Esparza MD POINT OF CARE TEST ORDERABLES Performing Organization Address [facility] Co de Phone Number [facility] [place] [address] * Thrombin time (09/21/2016 10:50 AM EST) Thrombin Time 19 15 - 20 sec [facility] Comment: A prolongation in the [...] MD HEMATOLOGY ORDERABLE S Performing Organization Address [facility]/ZIP Co de Phone Number [facility] [place] [address] * Fibrinogen (09/21/2016 10:50 AM EST) Fibrinogen 228 180 - 510 mg/dL [facility] Comment: Called by: JONNATHAN, Read back by: MICHELLE ALEJANDRE_, Date/Time:09/21/16 11:11. A fibrinogen level >100 mg/dL is adequate for hemostasis in most patients without underlying bleeding disorders. Blood specimen (specimen) 09/21/2016 10:50 AM EST 09/21/2016 10:56 AM EST Narrative Resulting Agency Comment Spec In Lab Luis Enrique Quarles MD HEMATOLOGY ORDERABLE S Performing Organization Address [facility] de Phone Number [facility] [place] [address] * APTT (09/21/2016 10:50 AM EST) Partial Thromboplastin Time 32 25 - 35 sec [facility] Comment: The recommended therapeutic range for full dose, unfractionated heparin at [facility] is 80 ? [...] MD HEMATOLOGY ORDERABLE S Performing Organization Address [facility] de Phone Number [facility] [place] [address] * (ABNORMAL) Prothrombin Time (09/21/2016 10:50 AM EST) Prothrombin Time 18.7(H) 12.0 - 15.0 sec [facility] Comment: An INR <2.0 indicates [...] International Normalization Ratio 1.5(H) 0.9 - 1.1 [facility] Blood specimen (specimen) 09/21/2016 10:50 AM EST 09/21/2016 10:56 AM EST Narrative Resulting Agency Comment Spec In Lab Luis Enrique Quarles MD HEMATOLOGY ORDERABLE S [facility] [place] [address] * (ABNORMAL) Hemogram (09/21/2016 10:50 AM EST) White Blood Cell 14.7(H) 4.0 - 9.5 x10(3)/mc L [facility] Red Blood Cell 2.40(L) 4.00 - 5.21 x10(6)/mc L [facility] Hemoglobin 7.9(L) 11.7 - 15.5 gm/dL [facility] Hematocrit 23.2(L) 35.7 - 45.8 % [facility] Comment: This result has been called to MICHELLE GRIGSBY by ASHU MORENO on 09 21 2016 at 1102, and has been read back. Mean Cell Volume 96.7(H) 82.6 - 94.4 fL [facility] Mean Cell Hemoglobin 32.9(H) 27.1 - 32.0 pg [facility] Mean Cell Hemoglobin Concentration 34.1 31.7 - 35.0 gm/dL [facility] Platelet 117(L) 145 - 357 x10(3)/mc L [facility] RDW Standard Deviation 42.6 37.0 - 46.0 fL [facility] RDW coefficient of variation 12.1 11.5 - 14.1 % [facility] Mean Platelet Volume 9.2 7.6 - 12.9 fL [facility] NRBC% auto 0.1 % [facility] NRBC Absolute 0.020(H) 0.000 - 0.000 x10(3)/mc L [facility] Blood specimen (specimen) 09/21/2016 10:50 AM EST 09/21/2016 10:56 AM EST Narrative Resulting Agency Comment Spec In Lab Luis Enrique Quarles MD HEMATOLOGY ORDERABLE S Performing Organization Address [facility]/[place] [address] * Prepare Platelets, Apheresis (09/21/2016 10:30 AM EST) Pathologist [facility] Dispensed? Yes [facility] Blood specimen (specimen) 09/21/2016 10:30 AM EST 09/21/2016 10:28 AM EST Alirio Esparza MD BLOOD BANK PRODUCT ORDERABLES Performing Organization Address [facility] [place] [address] * (ABNORMAL) BLOOD GAS 2 ARTERIAL (09/21/2016 10:05 AM EST) pH, Arterial 7.33(L) 7.35 - 7.45 [facility] PCO2, Arterial 54(Critic al) 35 - 45 mmHg [facility] Comment:Noted by surveyor instrument assistant. PO2, Arterial 218(H) 85 - 104 mmHg [facility] Bicarbonate, Arterial 27.9(H) 20.0 - 26.0 mmol/L [facility] Base Excess, Arterial 2.0 -3.0 - 3.0 mmol/L [facility] Hgb Blood Gas 8.6(L) 11.7 - 15.5 gm/dL [facility] Oxyhemoglobin, Arterial 98.4(H) 94.0 - 97.0 % [facility] Carboxyhemoglo bin, Arterial 0.5 % [facility] Comment: Nonsmokers: 0.5-1.5% COHB Smokers: Variable, but usually less than 10% Toxic: 20-30% COHB Lethal: Greater than 60% COHB Methemoglobin, Arterial 0.3 <=1.5 % [facility] Na Whole Blood 129(L) 135 - 145 mmol/L [facility] K Whole Blood 6.2(Criti gabrielle) 3.5 - 5.0 mmol/L [facility] Comment: Noted by surveyor instrument assistant. Please note: Patients with WBC >100,000 may have falsely elevated Potassium levels. Contact the Clinical Chemistry Laboratory if there are any questions. ICa Whole Blood 0.95(L) 1.15 - 1.33 mmol/L [facility] Comment: Note: ??Total bilirubin higher than 20 mg/dL may lead to falsely low ionized calcium. CL Whole Blood 100 98 - 107 mmol/L [facility] Gluc Whole Bld 289(H) 65 - 199 mg/dL [facility] Comment:Diabetes: >=200 mg/d L plus symptoms. Lactate WB 2.2 0.5 - 2.2 mmol/L [facility] Temp Art 37.0 Celsius [facility] Blood specimen (specimen) 09/21/2016 10:05 AM EST 09/21/2016 10:05 AM EST Alirio Esparza MD POINT OF CARE TEST ORDERABLES [facility] [place] [address] * (ABNORMAL) BLOOD GAS 2 ARTERIAL (09/21/2016 9:44 AM EST) pH, Arterial 7.22(Criti gabrielle) 7.35 - 7.45 [facility] Comment:Noted by surveyor instrument assistant. PCO2, Arterial 70(Critica l) 35 - 45 mmHg [facility] Comment:Noted by surveyor instrument assistant. PO2, Arterial 224(H) 85 - 104 mmHg [facility] Bicarbonate, Arterial 27.8(H) 20.0 - 26.0 mmol/L [facility] Base Excess, Arterial 0.0 -3.0 - 3.0 mmol/L [facility] Hgb Blood Gas 8.7(L) 11.7 - 15.5 gm/dL [facility] Oxyhemoglobin, Arterial 98.5(H) 94.0 - 97.0 % [facility] Carboxyhemoglob in, Arterial 0.6 % [facility] Comment: Nonsmokers: 0.5-1.5% COHB Smokers: Variable, but usually less than 10% Toxic: 20-30% COHB Lethal: Greater than 60% COHB Methemoglobin, Arterial 0.3 <=1.5 % [facility] Na Whole Blood 131(L) 135 - 145 mmol/L [facility] K Whole Blood 5.9(H) 3.5 - 5.0 mmol/L [facility] Comment: Please note: Patients with WBC >100,000 may have falsely elevated Potassium levels. Contact the Clinical Chemistry Laboratory if there are any questions. ICa Whole Blood 1.00(L) 1.15 - 1.33 mmol/L [facility] Comment: Note: ??Total bilirubin higher than 20 mg/dL may lead to falsely low ionized calcium. CL Whole Blood 101 98 - 107 mmol/L [facility] Gluc Whole Bld 227(H) 65 - 199 mg/dL [facility] Comment:Diabetes: >=200 mg/d L plus symptoms. Lactate WB 2.1 0.5 - 2.2 mmol/L [facility] Blood specimen (specimen) 09/21/2016 9:44 AM EST 09/21/2016 9:44 AM EST Alirio Esparza MD POINT OF CARE TEST ORDERABLES [facility] [place] [address] * (ABNORMAL) Hemoglobin (09/21/2016 9:42 AM EST) Hemoglobin 7.2(L) 11.7 - 15.5 gm/dL [facility] Blood specimen (specimen) 09/21/2016 9:42 AM EST 09/21/2016 9:51 AM EST Narrative Resulting Agency Comment Spec In Lab Alirio Esparza MD HEMATOLOGY ORDERABL ES [facility] [place] [address] * Platelet count (09/21/2016 9:42 AM EST) Platelet 159 145 - 357 x10(3)/mc L [facility] Immature Plt % 1.6 0.0 - 7.4 % [facility] Comment: Limitation of the Immature Platelet Fraction (IPF)-May be less reliable when the platelet count is less than 72w860/uL due to statistical imprecision. The IPF value [...] in a decreased state of production. References: [employer] The Clinical Value of the Immature Platelet Fraction (IPF) in Cell Recovery Document Number [id number] 12/2010 [employer] The Role of the Immature Platelet Fraction (IPF) in the Differential Diagnosis of Thrombocytopenia, Document [id number] Blood specimen (specimen) 09/21/2016 9:42 AM EST 09/21/2016 9:51 AM EST Narrative Resulting Agency Comment Spec In Lab Alirio Esparza MD HEMATOLOGY ORDERABL ES [facility] [place] [address] * (ABNORMAL) Hematocrit (09/21/2016 9:42 AM EST) Hematocrit 21.6(L) 35.7 - 45.8 % [facility] Comment: This result has been called to MICHELLE ALEJANDRE by Serjio Frazier on 09 21 2016 at 0957, and has been read back. Blood specimen (specimen) 09/21/2016 9:42 AM EST 09/21/2016 9:51 AM EST Narrative Resulting Agency Comment Spec In Lab Alirio Esparza MD HEMATOLOGY ORDERABL ES Performing Organization Address [facility] de Phone Number [facility] [place] [place] [address] * Fibrinogen (09/21/2016 9:42 AM EST) Fibrinogen 219 180 - 510 mg/dL [facility] Comment: Called by: JONNATHAN, Read back by: MICHELLE ALEJANDRE_, Date/Time:09/21/16 10:03_. A fibrinogen level >100 mg/dL is adequate for hemostasis in most patients without underlying bleeding disorders. Blood specimen (specimen) 09/21/2016 9:42 AM EST 09/21/2016 9:51 AM EST Narrative Resulting Agency Comment Spec In Lab Alirio Esparza MD HEMATOLOGY ORDERABL ES Performing Organization Address [facility] de Phone Number [facility] [place] [address] * (ABNORMAL) BLOOD GAS 2 ARTERIAL (09/21/2016 9:10 AM EST) pH, Arterial 7.36 7.35 - 7.45 [facility] PCO2, Arterial 48(H) 35 - 45 mmHg [facility] PO2, Arterial 295(H) 85 - 104 mmHg [facility] Bicarbonate, Arterial 26.0 20.0 - 26.0 mmol/L [facility] Base Excess, Arterial 0.5 -3.0 - 3.0 mmol/L [facility] Hgb Blood Gas 8.0(L) 11.7 - 15.5 gm/dL [facility] Oxyhemoglobin, Arterial 98.3(H) 94.0 - 97.0 % [facility] Carboxyhemoglob in, Arterial 1.0 % [facility] Comment: Nonsmokers: 0.5-1.5% COHB Smokers: Variable, but usually less than 10% Toxic: 20-30% COHB Lethal: Greater than 60% COHB Methemoglobin, Arterial 0.3 <=1.5 % [facility] Na Whole Blood 135 135 - 145 mmol/L [facility] K Whole Blood 5.4(H) 3.5 - 5.0 mmol/L [facility] Comment: Please note: Patients with WBC >100,000 may have falsely elevated Potassium levels. Contact the Clinical Chemistry Laboratory if there are any questions. ICa Whole Blood 0.93(L) 1.15 - 1.33 mmol/L [facility] Comment: Note: ??Total bilirubin higher than 20 mg/dL may lead to falsely low ionized calcium. CL Whole Blood 102 98 - 107 mmol/L [facility] Gluc Whole Bld 195 65 - 199 mg/dL [facility] Comment:Diabetes: >=200 mg/d L plus symptoms. Lactate WB 1.8 0.5 - 2.2 mmol/L [facility] Temp Art 37.0 Celsius [facility] Blood specimen (specimen) 09/21/2016 9:10 AM EST 09/21/2016 9:10 AM EST Alirio Esparza MD POINT OF CARE TEST ORDERABLES Performing Organization Address City/State/[facility] Co de Phone Number [facility] [place] [address] * Surgical Pathology Report (09/21/2016 9:09 AM EST) Final Diagnosis [id number] ?Location: 3T The signing pathologist has (i) [...] ?. (R1) ??ADELITA 09/24/2016 9:32 AM EST [facility] AORTIC STRUCTURE / Unknown 09/21/2016 9:09 AM EST 09/21/2016 9:09 AM EST Alirio Esparza MD PATHOLOGY/CYTOLOGY ORDERABLES Performing Organization Address City/[facility] Co de Phone Number [facility] [place] [address] * Specimen to Pathology (surgical or derm) (09/21/2016 9:09 AM EST) AP Specimen 09/21/2016 9:09 AM EST 09/21/2016 9:09 AM EST Narrative [facility] - 09/21/2016 9:09 AM EST Specimen requisition ordered. ??Separate Pathology report to follow Alirio Esparza MD PATHOLOGY/CYTOLOGY ORDERABLES Performing Organization Address [facility]/ZIP Co de Phone Number [facility] [place] [address] * (ABNORMAL) BLOOD GAS 2 ARTERIAL (09/21/2016 8:50 AM EST) pH, Arterial 7.41 7.35 - 7.45 [facility] PCO2, Arterial 33(L) 35 - 45 mmHg [facility] PO2, Arterial 348(H) 85 - 104 mmHg [facility] Bicarbonate, Arterial 20.6 20.0 - 26.0 mmol/L [facility] Base Excess, Arterial -4.1(L) -3.0 - 3.0 mmol/L [facility] Hgb Blood Gas 9.5(L) 11.7 - 15.5 gm/dL [facility] Oxyhemoglobin, Arterial 98.8(H) 94.0 - 97.0 % [facility] Carboxyhemoglob in, Arterial 0.3 % [facility] Comment: Nonsmokers: 0.5-1.5% COHB Smokers: Variable, but usually less than 10% Toxic: 20-30% COHB Lethal: Greater than 60% COHB Methemoglobin, Arterial 0.3 <=1.5 % [facility] Na Whole Blood 137 135 - 145 mmol/L [facility] K Whole Blood 4.0 3.5 - 5.0 mmol/L [facility] Comment: Please note: Patients with WBC >100,000 may have falsely elevated Potassium levels. Contact the Clinical Chemistry Laboratory if there are any questions. ICa Whole Blood 1.04(L) 1.15 - 1.33 mmol/L [facility] Comment: Note: ??Total bilirubin higher than 20 mg/dL may lead to falsely low ionized calcium. CL Whole Blood 105 98 - 107 mmol/L [facility] Gluc Whole Bld 93 65 - 199 mg/dL [facility] Comment:Diabetes: >=200 mg/d L plus symptoms. Lactate WB 1.0 0.5 - 2.2 mmol/L [facility] Blood specimen (specimen) 09/21/2016 8:50 AM EST 09/21/2016 8:50 AM EST Alirio Esparza MD POINT OF CARE TEST ORDERABLES [facility] [place] [address] * (ABNORMAL) BLOOD GAS 2 ARTERIAL (09/21/2016 8:18 AM EST) pH, Arterial 7.42 7.35 - 7.45 [facility] PCO2, Arterial 36 35 - 45 mmHg [facility] PO2, Arterial 283(H) 85 - 104 mmHg [facility] Bicarbonate, Arterial 22.8 20.0 - 26.0 mmol/L [facility] Base Excess, Arterial -2.0 -3.0 - 3.0 mmol/L [facility] Hgb Blood Gas 12.6 11.7 - 15.5 gm/dL [facility] Oxyhemoglobin, Arterial 99.0(H) 94.0 - 97.0 % [facility] Carboxyhemoglob in, Arterial 0.6 % [facility] Comment: Nonsmokers: 0.5-1.5% COHB Smokers: Variable, but usually less than 10% Toxic: 20-30% COHB Lethal: Greater than 60% COHB Methemoglobin, Arterial 0.0 <=1.5 % [facility] Na Whole Blood 144 135 - 145 mmol/L [facility] K Whole Blood 4.0 3.5 - 5.0 mmol/L [facility] Comment: Please note: Patients with WBC >100,000 may have falsely elevated Potassium levels. Contact the Clinical Chemistry Laboratory if there are any questions. ICa Whole Blood 1.22 1.15 - 1.33 mmol/L [facility] Comment: Note: ??Total bilirubin higher than 20 mg/dL may lead to falsely low ionized calcium. CL Whole Blood 106 98 - 107 mmol/L [facility] Gluc Whole Bld 102 65 - 199 mg/dL [facility] Comment:Diabetes: >=200 mg/d L plus symptoms. Lactate WB 1.2 0.5 - 2.2 mmol/L [facility] FIO2 Art 95 % [facility] Flow Art 1.1 LPM [facility] PF Ratio Art 298 [facility] Temp Art 35.6 Celsius [facility] Blood specimen (specimen) 09/21/2016 8:18 AM EST 09/21/2016 8:18 AM EST Alirio Esparza MD POINT OF CARE TEST ORDERABLES Performing Organization Address [facility] Co de Phone Number [facility] [place] [address] * Prepare RBC (09/21/2016 7:05 AM EST) Dispensed? Yes [facility] Blood specimen (specimen) 09/21/2016 7:05 AM EST 09/21/2016 7:02 AM EST Alirio Esparza MD BLOOD BANK PRODUCT ORDERABLES Performing Organization Address [facility] Co de Phone Number [facility] [place] [address] * POCT Glucose (09/21/2016 6:42 AM EST) Glucose, POC 104 65 - 199 mg/dL [facility] Comment: Supplemental ranges: <140 mg/dL before meals <180 mg/dL all other times of the day Blood specimen (specimen) 09/21/2016 6:42 AM EST 09/21/2016 6:42 AM EST Alirio Esparza MD POINT OF CARE TEST ORDERABLES Performing Organization Address [facility] de Phone Number [facility] [place] [address] documented in this encounter Visit Diagnoses Not [...] dose on Wed09/21/16 at 1230, Until Discontinued, [place] teeth, Routine Given 09/25/2016 9:40 AM EST [...] at 0600)1600 (Due - Provider: Kendall Martínez [facility]) aspirin chewable tablet 81 mg(Linked [...] dose on Wed09/21/16 at 1230, Until Discontinued, [place] teeth, Routine 0900 (Not Given - Provider: [...] Routine documented in this encounter Care Teams Dressmaking Teacher Relationship Specialty Start Date End Date Deborah Quiroga APRN PCP - General Family Medicine 03/24/16 02/04/23 documented as of this encounter
--- OUTSIDE RECORDS SUMMARY | 2024-03-30 14:32 | XMS_ITS | Encounter Summary ---
Author Organization [facility] Address [facility] [place] [address] Care Team Providers Care Service Department Manager Name Role Phone Ashley Quirogazac Shields APRN Primary Care Provider [phone] Encounter Details Date Type Department Care Team (Latest Contact Info) Description 06/19/2016 - 06/19/2016 11:59 PM EST Hospital Encounter [place] [address] Nitesh Pina Jr., MD [facility] [address] HEMAT[place]Y [place] [address] Pain Discharge Disposition: Home Social History Tobacco [...] EDT Office Visit Dermatology at [place] [address] [place] [address] Marek Bonilla MD [address] [place] [address] documented as of this encounter Procedures Procedure Name Priority Date/Time Associated Diagnosis Comments FILM LIBRARY STORAGE ONLY CT CHEST ABDOMEN PELVIS Routine 06/19/2016 12:00 AM EST Pain documented in this encounter Results * Film Library- Storage Only CT Chest Abdomen Pelvis (06/19/2016 12:00 AM EST) Narrative [facility] NAMED [facility] - 06/20/2016 8:53 AM EST This exam is for storage only and is auto-finalizing. Nitesh Pina Jr., MD IMG FILM LIBRARY ORD ERABLES [place], [place] documented in this encounter Visit Diagnoses Diagnosis Pain Generalized pain documented in this encounter Care Teams Service Department Manager Relationship Specialty Start Date End Date Deborah Quiroga APRN PCP - General Family Medicine 03/24/16 02/04/23 documented as of this encounter
--- OUTSIDE RECORDS SUMMARY | 2024-03-30 14:32 | XMS_ITS | Encounter Summary ---
[place] [address] Care Team Providers Care Advanced Practice Provider Name Role Phone Junaid, Deborah Shields APRN Primary Care Provider [phone] Reason for Visit * Auth/Cert Specialty Diagnoses / Procedures Referred By Crispin t Referred To Contact Diagnoses Aortic stenosis Procedures PRO REPLACE AORT VALV, PROSTH VALV @REPLACE AORTIC VALVE, OPEN, W\CPB, W\PROSTHETIC VALVE (WRVU 41.32) Referral ID Status Reason Start Date Expiration Date Visits Re quested Visits Authorized [id number] 1 1 Encounter Details Date Type Department Care Team (Late st Contact Info) Description 09/21/2016 7:25 AM EST Anesthesia Event [place] [address] Luis Enrique Quarles MD [facility] [address] [place] [address] Henrik Cooper MD [facility] [place] [address] Anesthesia Record Procedure Summary Procedure Name Responsible [...] 0819 Sternotomy 0844 CV Bypass init 1009 Green Chain Offbearer 1014 An Clamp Remove 1031 CP Bypass [...] Tube 09/21/16 (#28 angled chest tube to [place]: left: pericardial); Left; 09/22/16; 1119 09/21/16 0000 by Toshia Alejandre RN 09/22/16 1119 by Vero Bonilla RN Chest Tube 09/21/16 (#28 straig ht chest tube to [place]; right: mediastinal'); Right; mediastinum; 09/22/16; 1118 09/21/16 0000 by Toshia Alejandre RN 09/22/16 1118 by Vero Bonilla RN (RETIRED) Peripheral IV Line - Single Lumen 09/21/16; 0648; metacarpal vein (top of hand), left; [id number] catheter system; 20 gauge; valdo Arteaga; 09/23/16; [...] Cooper MD - 09/21/2016 6:50 PM EST [facility] Department of Anesthesiology Post-procedure Note Patient: Purnima [...] Anesthesia Providers: Anesthesiologist: Luis Enrique Quarles MD Aircraft Machinist: Henrik Cooper MD Last (1hr) Vitals: BP Temp 36.1 ??C (97 ??F) (09/21/16 1800) Pulse 79 (09/21/16 1800) Resp 11 (09/21/16 1800) SpO2 98 % (09/21/16 1800) Patient Location: [facility] Level of Consciousness: Sedated (Pharmacologic/Intentional) Pain [...] PM EDT Office Visit Dermatology at [place] [address] [place] [address] Marek Bonilla MD [address] [place] [address] RD, [address] [place] [address] documented as of this encounter Visit Diagnoses [...] mg documented in this encounter Care Teams Advanced Practice Provider Relationship Specialty Start Date End Date Deborah Quiroga, TECHNOLOGY ASSISTANT PCP - General Family Medicine 03/24/16 02/04/23 documented as of this encounter
--- OUTSIDE RECORDS SUMMARY | 2024-03-30 14:32 | XMS_ITS | Encounter Summary ---
[place] [address] Care Team Providers Care Bullard Operator Name Role Phone Deborah Quiroga ANURAG Primary Care Provider [phone] Reason for Visit * Reason Onset Date Comments Pre Procedure Call 06/18/2016 Encounter Details Date Type Department Care Team (Late st Contact Info) Description 06/18/2016 Telephone [place]ematology [place] [address] Alexandrea Greenwood RN Pre Procedure Call Social [...] EDT Office Visit Dermatology at [place] [address] [place] [phone] Marek Bonilla MD [address] [place] [address] documented as of this encounter Visit Diagnoses Not on filedocumented in this encounter Care Teams Bullard Operator Relationship Specialty Start Date End Date Deborah Quiroga APRN PCP - General Family Medicine 03/24/16 02/04/23 documented as of this encounter
--- OUTSIDE RECORDS SUMMARY | 2024-03-30 14:33 | XMS_ITS | Encounter Summary ---
Author Organization [facility] Address [facility] [place] [address] Care Team Providers Care Tester Electronic Scale Name Role Phone Danni Laird APRN Primary Care Provider [phone] Encounter Details Date Type Department Care Team (Late st Contact Info) Description 01/23/2014 Orders Only Cardiology at [address] [address] Lee Kincaid MD [facility] [place] [address] SOB (shortness of breath) (Primary Dx) Social [...] 4:15 PM EDT Office Visit Dermatology at [place] [address] [place] [phone] Marek Bonilla MD [address] [facility], TODD A DERMATOLOGY [place], [place] [id number] documented as of this encounter Results * Echocardiogram Transthoracic(Leb) (01/23/2014 3:17 PM EDT) EF 50 HEARTLAB SYSTEM Anatomical Region Laterality Modality Other 01/23/2014 Narrative 01/23/2014 4:35 PM EDT Procedure: ? Transthoracic Echocardiogram Patient: ? ANDREW Mejias ?(Age): 1955(58) Med Rec#: ?[id number] ? Sex: ?F ? [place] [place] Ht / Wt: ??158(cm)/93(kg) Pt. Loc: ? Adult Floor ?BSA: ?2.02 Study Date: ?01/23/2014 ? Pt. Type: Inpatient Tape: ? Referring: Lee Kincaid ([id number]) Referring: ANNALISA Manager Dish: Miguel Beverly Diagnosis:CPT Code(s): ??Echo Full (01745), ??Spectral Doppler (35897), Color Doppler (37822), Indication(s): ??Aortic stenosis Rhythm: Sinus HR ?BP [...] ? Mid-Inferior ?Hypokinetic ? Mid-Inferoseptal ?Hypokinetic ? [place]-Septal ? Hypokinetic ? [place]-Anterior ? Hypokinetic ? [place]-Lateral ?Hypokinetic ? [place]-Inferior ? Hypokinetic ? [place]-Tip ?Hypokinetic ? Chambers ?Value ?Units (Range) ? [...] Images reviewed and interpretation verified [facility] Cardiac Ultrasound Laboratory Procedure Note Lee Kincaid MD - 01/23/2014 Procedure: Transthoracic Echocardiogram Patient: ANDREW Mejias (Age): 1955(58) Med Rec#: [id number] Sex: F [place] [facility] [place] Ht / Wt: 158(cm)/93(kg) Pt. Loc: Adult Floor BSA: 2.02 Study Date: 01/23/2014 Pt. Type: Inpatient Tape: Referring: Lee Kincaid ([id number]) Referring: ANNALISA Manager Dish: Miguel Beverly Diagnosis:CPT Code(s): Echo Full (34824), Spectral Doppler (69319), Color Doppler (74240), Indication(s): Aortic stenosis Rhythm: Sinus HR BP [...] Hypokinetic Mid-Posterolateral Hypokinetic Mid-Inferior Hypokinetic Mid-Inferoseptal Hypokinetic [place]-Septal Hypokinetic [place]-Anterior Hypokinetic [place]-Lateral Hypokinetic [place]-Inferior Hypokinetic [place]-Tip Hypokinetic Chambers Value Units (Range) IVSd 2D [...] Images reviewed and interpretation verified [facility] Cardiac Ultrasound Laboratory Lee Kincaid MD ECHO ORDERABLES documented in this encounter Visit Diagnoses Diagnosis SOB (shortness of breath)- Primary Shortness of breath documented in this encounter Care Teams Tester Electronic Scale Relationship Specialty Start Date End Date Danni Laird APRN [address] [place] [address] PCP - General 01/23/14 11/11/14 documented as of this encounter
--- OUTSIDE RECORDS SUMMARY | 2024-03-30 14:33 | XMS_ITS | Encounter Summary ---
[place] [address] Care Team Providers Care Archaeologist Name Role Phone Ashley Quirogan Cornelius ANURAG Primary Care Provider [phone] Encounter Details Date Type Department Care Team (Late st Contact Info) Description 03/24/2016 Notes [place] [phone] Alfa Lua Social History Tobacco Use Types [...] assessments completed: Wadsworth Score: 6/6 IADL: 7/7 Blackjack Supervisor Strength Trials: 18.4, 15.0, 16.8 (right hand dominant) 5 meter walk test in seconds x3: 4.98, 4.88, 4.45 KCCQol: 98% Alfa Lua documented in this encounter Plan of Treatment Upcoming Encounters Date Type Department Care Team (Late st Contact Info) Description 03/01/2025 4:15 PM EDT Office Visit Dermatology at [place] [address] [facility] [address] [place] [address] Marek Bonilla MD [address] [place] [address] documented as of this encounter Visit Diagnoses Not on filedocumented in this encounter Care Teams Archaeologist Relationship Specialty Start Date End Date Deborah Quiroga APRN PCP - General Family Medicine 03/24/16 02/04/23 documented as of this encounter
--- OUTSIDE RECORDS SUMMARY | 2024-03-30 14:33 | XMS_ITS | Encounter Summary ---
Author Organization Formerly [facility] Address [facility] [place] [address] Care Team Providers Care Bar Pointer Name Role Phone Junaid, Deborah Shields APRN Primary Care Provider [phone] Reason for Visit * Auth/Cert Specialty Diagnoses / Procedures Referred By Crispin t Referred To Contact Diagnoses AVS Procedures CARDIAC CATHETERIZATION Referral ID Status Reason Start Date Expiration Date Visits Re quested Visits Authorized [id number] 1 1 Encounter Details Date Type Department Care Team (Late st Contact Info) Description 06/03/2016 7:30 AM EDT - 06/03/2016 8:30 AM EDT Surgery [place] [place] [phone] Mario Alberto Escobedo MD [facility] [place] [address] CARDIAC CATHETERIZATION Social History Tobacco Use Types [...] by your doctor, do not take any rlrt-mro-qdjtubc medicinesor herbal preparations without first discussing this with your doctor or pharmacist. There is the possibility of side effects and interactions when these are combined. Follow Up Care Who to call with questions or problems If there are any questions or problems that you think might be related to your cardiac cath or angioplasty, contact the criminal researcher monologist by calling [facility] at . * Patient Instructions* Felicia Corrigan - 06/03/2016 9:33 AM EDT Cardiology Instructions Call your doctor if: Chest pain, dyspnea, pain or swelling in legs occurs. If you have non-emergent questions between now and the time of your follow up appointments: -During 8am-5pm Wednesday through Wednesday call [phone] to speak with a nurse in the cardiology clinic -All other times call [phone] and ask to speak to the lacquer coater monologist. MEDICATIONS - restart your spironolactone, discontinue prior [...] Appointments: Primary care provider: Cardiology: Deborah Hahn, BARK SPUDDER [phone] Follow up as planned or as needed. Dr. Esparza [phone] Other follow-up appointment: Hematology - Dr. Mario [...] 4:15 PM EDT Office Visit Dermatology at [place] [address] [place] [address] Marek Bonilla MD [address], [address] [address] documented as of this encounter Procedures Procedure [...] Green Tube HOLD (06/03/2016 11:45 AM EDT) [facility] Green Hold Sample in lab. [facility] Blood specimen (specimen) Venous Draw / Unknown 06/03/2016 11:45 AM EDT 06/03/2016 12:12 PM EDT Mario Alberto Escobedo MD CHEMISTRY ORDERABLES Performing Organization Address [facility] de Phone Number [facility] [place] [address] * Methylmalonic acid, serum (06/03/2016 11:45 AM EDT) [facility] Methylmalonic Acid (NOVEMBER) 0.21 <=0.40 nmol/mL [facility] Comment: Test Performed by: [place] [address] [employer] Performer: Raymond Chaudhry II, M.D., Ph.D. Blood specimen (specimen) 06/03/2016 11:45 AM EDT 06/03/2016 1:57 PM EDT Narrative Resulting Agency Comment Spec In Lab Mario Alberto Escobedo MD LAB SEND OUT ORDERAB LES Performing Organization Address [facility] Co de Phone Number [facility] [place] [address] * Granulocyte Antibody (06/03/2016 11:45 AM EDT) [facility] Granulocyte Ab (NOVEMBER) Negative Not Applicable [facility] Comment: ADDITIONAL INFORMATION Method: Immunofluorescent Assay Performing Laboratory CLIA# [id number] This test was developed and its performance characteristics determined by [facility] in a manner consistent with CLIA requirements. This test has not been cleared or approved by the U.S. Food and Drug Administration. Test Performed by: [facility] - [address] [address] [employer] Performer: Raymond Chaudhry II, M.D., Ph.D. Blood specimen (specimen) 06/03/2016 11:45 AM EDT 06/03/2016 1:57 PM EDT Narrative Resulting Agency Comment Spec In Lab Mario Alberto Escobedo MD LAB SEND OUT ORDERAB LES Performing Organization Address [facility] Co de Phone Number [facility] [place] [address] * TSH (06/03/2016 11:45 AM EDT) Thyroid Stimulating Hormone 2.18 0.27 - 4.20 mcIU/mL [facility] Blood specimen (specimen) 06/03/2016 11:45 AM EDT 06/03/2016 12:11 PM EDT Narrative Resulting Agency Comment Spec In Lab Mario Alberto Escobedo MD CHEMISTRY ORDERABLES Performing Organization Address [facility] Co de Phone Number [facility] [place] [address] * Homocysteine Total, Plasma (06/03/2016 11:45 AM EDT) Homocystine 9 <=15 mcmol/L [facility] Blood specimen (specimen) 06/03/2016 11:45 AM EDT 06/03/2016 12:11 PM EDT Narrative Resulting Agency Comment Spec In Lab Mario Alberto Escobedo MD CHEMISTRY ORDERABLES Performing Organization Address [facility] Co de Phone Number [facility] [place] [address] * Folate, serum (06/03/2016 11:45 AM EDT) Folate >20.0 4.8 - 24.2 ng/mL [facility] Blood specimen (specimen) 06/03/2016 11:45 AM EDT 06/03/2016 12:04 PM EDT Narrative Resulting Agency Comment Spec In Lab Mario Alberto Escobedo MD CHEMISTRY ORDERABLES Performing Organization Address [facility] Co de Phone Number [facility] [place] [address] * (ABNORMAL) Sedimentation rate (06/03/2016 11:45 AM EDT) Sedimentation Rate Automated 41(H) 0 - 20 mm/hr [facility] Blood specimen (specimen) 06/03/2016 11:45 AM EDT 06/03/2016 12:04 PM EDT Narrative Resulting Agency Comment Spec In Lab Mario Alberto Escobedo MD HEMATOLOGY ORDERABLE S Performing Organization Address [facility] Co de Phone Number [facility] [place] [address] * Lactate Dehydrogenase (06/03/2016 11:45 AM EDT) Lactate Dehydrogenase 164 110 - 220 unit/L [facility] Blood specimen (specimen) 06/03/2016 11:45 AM EDT 06/03/2016 12:11 PM EDT Narrative Resulting Agency Comment Spec In Lab Mario Alberto Escobedo MD CHEMISTRY ORDERABLES Performing Organization Address [facility] Co de Phone Number [facility] [place] [address] * Comprehensive metabolic panel (non-fasting) (06/03/2016 11:45 AM EDT) Glucose 90 65 - 199 mg/dL [facility] Comment:Diabetes: >=200 mg/d L plus symptoms Blood Urea Nitrogen 11 8 - 18 mg/dL [facility] Creatinine 0.83 0.70 - 1.20 mg/dL [facility] Comment: Please note that the pediatric reference intervals supplied above were not validated at [facility]. Results from pediatric patients should be interpreted in conjunction to the patient's age, height and muscle mass. Sodium 143 135 - 145 mmol/L [facility] Potassium 4.0 3.5 - 5.0 mmol/L [facility] Comment: Please note: ??Patients with WBC >100,000 may have falsely elevated Potassium levels. ??For accurate Potassium quantification in these patients send serum separator tube (gold top) for subsequent determinations. ??Contact the Clinical Chemistry Laboratory if there are any questions. Chloride 104 98 - 107 mmol/L [facility] Carbon Dioxide 25 22 - 31 mmol/L [facility] Anion Gap 14 5 - 15 mmol/L [facility] Calcium 9.2 8.5 - 10.5 mg/dL [facility] Protein, Total 7.0 6.1 - 8.0 gm/dL [facility] Albumin 4.0 3.2 - 5.2 gm/dL [facility] Aspartate Aminotransferase 17 0 - 30 unit/L [facility] Alanine Aminotransferase 9 0 - 30 unit/L [facility] Alkaline Phosphatase 81 40 - 104 unit/L [facility] Bilirubin, Total 0.4 0.2 - 1.3 mg/dL [facility] Bilirubin, Direct 0.1 0.0 - 0.3 mg/dL [facility] Est Glomerular Filtration [...] the following links into your internet browser. [email or web address] Blood specimen (specimen) 06/03/2016:45 AM EDT 06/03/2016 12:11 PM EDT Narrative Resulting Agency Comment Spec In Lab Mario Alberto Escobedo MD CHEMISTRY ORDERABLES [facility] [place] [address] documented in this encounter Visit Diagnoses Diagnosis [...] Hernandez) documented in this encounter Care Teams Bar Pointer Relationship Specialty Start Date End Date Deborah Quiroga APRN PCP - General Family Medicine 03/24/16 02/04/23 documented as of this encounter
--- OUTSIDE RECORDS SUMMARY | 2024-03-30 14:33 | XMS_ITS | Encounter Summary ---
Author Organization [facility] Address [facility] [place] [address] Care Team Providers Care Professional Engineer Name Role Phone Deborah Quiroga APRN Primary Care Provider [phone] Reason for Visit * Reason Comments Schedule Office Case * Consultation (Routine) - Closed Specialty Diagnoses / Procedures Referred By Contac t Referred To Contact Hematology and Oncology Diagnoses Leukopenia Neutropenia LEUKOPENIA W/NEUTROPENIA Procedures TC PEGFILGRASTIM, 6MG, INJECTION LEUKOPENIA W/NEUTROPENIA Alirio Esparza MD [facility] C[place]IOTH[place] [address] Mario Alberto Ramos Jr., MD [facility] [address] HEMATOLOGY [place] [address] Referral ID Status Reason Start Date Expiration Date V isits Requested Visits Authorized [id number] Closed Consult, Test & Treat 07/17/2016 07/17/2017 1 1 Encounter Details Date Type Department Care Team (Late st Contact Info) Description 06/09/2016 3:00 PM EST Office Visit Hematology [place] [address] Mario Alberto Ramos Jr., MD [facility] [place] [address] Cyclical neutropenia Social History Tobacco Use Types [...] 06/09/2016 3:00 PM EST Hematology Outpatient Clinic [facility] Hematology Outpatient Consult Note CC: [id number] [...] Unknown See Comment Flow Cytometry Report Unknown [id number] ... HematoPathology: Flow Cytometry DIAGNOSIS 1. No [...] 4:15 PM EDT Office Visit Dermatology at [place] [address] [place] [phone] Marek Bonilla MD [address] [place] [address] documented as of this encounter Procedures Procedure [...] (06/09/2016 4:53 PM EST) Flow Cytometry Report [id number] ?Location: The signing pathologist has (i) examined [...] by the Clinical Flow Cytometry Laboratory at [facility]. It has not been cleared [...] high complexity clinical laboratory testing. SPECIMEN PROCESSING [id number] Cells for immunophenotypic analysis were derived from peripheral blood. ??CD45 vs side scatter gating was utilized to identify a lymphoid analysis region that comprises approximately 49-51% of all cells. The following markers were assessed: CD2, CD3, CD4, CD5, CD7, CD8, CD10, CD16, CD19, CD45, CD56, CD57, kappa light chain, and lambda light chain. CLINICAL INFORMATION 60 yo female with neutropenia. LGL panel requested. [facility] 06/09/2016 4:53 PM EST Mario Alberto Ramos Jr., MD PATHOLOGY/CYTOLOGY O RDERABLES [facility] [place] [address] * Scan, Peripheral Blood (06/09/2016 4:53 PM EST) Pathologist [facility] Plat estimate Normal [facility] RBC Morphology Normal [facility] Blood specimen (specimen) 06/09/2016 4:53 PM EST 06/09/2016 5:00 PM EST Narrative Resulting Agency Comment Spec In Lab Mario Alberto Ramos Jr., MD HEMATOLOGY ORDERABLE S Performing Organization Address City/[facility]/ZIP Co de Phone Number [facility] [place] [address] * (ABNORMAL) Differential, Automated (06/09/2016 4:53 PM EST) [facility] Neutrophil % 27.7 % [facility] Neutrophil Absolute 0.48(Crit ical) 1.70 - 6.10 x10(3)/mc L [facility] Comment: Matches Previous Results.. This result has been called to NOT CALLED by Jesusita Argueta on 06 09 2016 at 1817, and has not been read back. MATCHES PREVIOUS RESULTS Lymph % 57.2 % [facility] Lymphocytes Abs 1.0 0.9 - 3.2 x10(3)/mc L [facility] Monocyte % 13.3 % [facility] Monocyte Abs 0.2(L) 0.3 - 0.9 x10(3)/mc L [facility] Eos % 0.6 % [facility] Eosinophils Abs 0.0 0.0 - 0.4 x10(3)/mc L [facility] Basophil % 1.2 % [facility] Baso Absolute 0.0 0.0 - 0.1 x10(3)/mc L [facility] Immature Gran % 0.00 % [facility] Comment: Immature granulocytes(IG's)percentage and absolute count will include metamyelocytes, myelocytes, and promyelocytes. Blood smears from CBCs yielding IG's will be scanned manually for concordance. If this scan disagrees with the automated IG or if promyelocytes are noted, a manual differential will be performed. Immature Gran Absolute 0.00 0.00 - 0.04 x10(3)/mc L [facility] Blood specimen (specimen) 06/09/2016 4:53 PM EST 06/09/2016 5:00 PM EST Narrative Resulting Agency Comment Spec In Lab Mario Alberto Ramos Jr., MD HEMATOLOGY ORDERABLE S Performing Organization Address City/State/[facility] Co de Phone Number [facility] [place] [address] * (ABNORMAL) Hemogram (06/09/2016 4:53 PM EST) White Blood Cell 1.7(Criti gabrielle) 4.0 - 9.5 x10(3)/mc L [facility] Red Blood Cell 3.92(L) 4.00 - 5.21 x10(6)/mc L [facility] Hemoglobin 12.4 11.7 - 15.5 gm/dL [facility] Hematocrit 36.7 35.7 - 45.8 % [facility] Mean Cell Volume 93.6 82.6 - 94.4 fL [facility] Mean Cell Hemoglobin 31.6 27.1 - 32.0 pg [facility] Mean Cell Hemoglobin Concentration 33.8 31.7 - 35.0 gm/dL [facility] Platelet 234 145 - 357 x10(3)/mc L [facility] RDW Standard Deviation 39.8 37.0 - 46.0 fL [facility] RDW coefficient of variation 11.8 11.5 - 14.1 % [facility] Mean Platelet Volume 8.6 7.6 - 12.9 fL [facility] NRBC% auto 0.0 % [facility] NRBC Absolute 0.000 0.000 - 0.000 x10(3)/mc L [facility] Blood specimen (specimen) 06/09/2016 4:53 PM EST 06/09/2016 5:00 PM EST Narrative Resulting Agency Comment Spec In Lab Mario Alberto Ramos Jr., MD HEMATOLOGY ORDERABLE S Performing Organization Address [facility] Co de Phone Number [facility] [place] [address] * Immunophenotyping Flow Cytometry (06/09/2016 4:53 PM EST) Immunophenotyping Flow See Comment [facility] Comment: When completed by the Pathologist, the Flow Cytometry Report ([id number]) will display under the Pathology Results section within [facility]. Specimen of unknown material (specimen) 06/09/2016 4:53 PM EST 06/09/2016 5:00 PM EST Narrative Resulting Agency Comment Spec In Lab Mario Alberto Ramos Jr., MD HEMATOLOGY ORDERABLE S Performing Organization Address City/[facility] Co de Phone Number [facility] [place] [address] documented in this encounter Visit Diagnoses Diagnosis Cyclical neutropenia Cyclic neutropenia documented in this encounter Care Teams Professional Engineer Relationship Specialty Start Date End Date Deborah Quiroga APRN PCP - General Family Medicine 03/24/16 02/04/23 documented as of this encounter
--- OUTSIDE RECORDS SUMMARY | 2024-03-30 14:33 | XMS_ITS | Encounter Summary ---
Author Organization [facility] [place] [address] Care Team Providers Care House Parent Name Role Phone Junaid, Deborah Shields APRN Primary Care Provider [phone] Encounter Details Date Type Department Care Team (Late st Contact Info) Description 05/19/2016 10:00 AM EDT Office [place] [phone] Alirio Esparza MD Nonrheumatic aortic valve stenosis [...] in this encounter Progress Notes * Alirio sEparza MD - 05/19/2016 10:00 AM EDT Please [...] 4:15 PM EDT Office Visit Dermatology at [place] [address] [place] [phone] Marek Bonilla MD [address] [place] [address] documented as of this encounter Results * [...] (Bezet) 448 ms MUSE SYSTEM Calculated P [place] 37 degrees MUSE SYSTEM Calculated R [place] 31 degrees MUSE SYSTEM Calculated T [place] 25 degrees MUSE SYSTEM INTERPRETATION Normal sinus rhythm Normal ECG No previous ECGs available Confirmed by MD Becca, Deangelo ([id number]) on 05/19/2016 5:23:33 PM MUSE SYSTEM 05/19/2016 11:4 3 AM EDT 05/19/2016 5:23 PM EDT Alirio Esparza MD ECG ORDERABLES MUSE SYSTEM * Basic Metabolic Panel (non-fasting) (05/19/2016 11:32 AM EDT) Pathologist [facility] Glucose 86 65 - 199 mg/dL [facility] Est Glomerular Filtration Rate 60 >=60 [facility] Comment: This [...] the following links into your internet browser. [email or web address] Blood specimen (specimen) 05/19/2016 11:32 AM EDT 05/19/2016 11:41 AM EDT Narrative Resulting Agency Comment Spec In Lab Alirio Esparza MD CHEMISTRY ORDERABLE S Performing Organization Address City/State/[facility] Co de Phone Number [facility] [place] [address] documented in this encounter Visit Diagnoses Diagnosis Nonrheumatic aortic valve stenosis Aortic valve disorders Nonrheumatic aortic valve stenosis Aortic valve disorders documented in this encounter Care Teams House Parent Relationship Specialty Start Date End Date Deborah Quiroga APRN PCP - General Family Medicine 03/24/16 02/04/23 documented as of this encounter
--- OUTSIDE RECORDS SUMMARY | 2024-03-30 14:33 | XMS_ITS | Encounter Summary ---
Author Organization [facility] Address [facility] [place] [address] Care Team Providers Care Doctor Of Naprapathic Medicine Name Role Phone JunaidAshley hargrovezac Shields APRN Primary Care Provider [phone] Reason for Visit * Consultation (Urgent) - Closed Specialty Diagnoses / Procedures Referred By Contac t Referred To Contact Cardiac Surgery Diagnoses aortic stenosis, consideration for valve replacement Antelmo Burrell MD [address] [place] [address] [facility] [place] [address] Referral ID Status Reason Start Date Expiration Date V isits Requested Visits Authorized [id number] Closed Connection Center 03/04/2016 03/04/2017 1 1 Encounter Details Date Type Department Care Team (Late st Contact Info) Description 03/24/2016 10:40 AM EDT Office [place] [phone] Alirio Esparza MD Aortic valve stenosis, unspecified [...] This is a patient of Antelmo Burrell [facility] Cardiology. Mrs. Thacker is being [...] 30 minute visit, 20 minutes were spent [id number] with the patient discussing aortic stenosis and valve replacement. documented in this encounter Plan of Treatment Upcoming Encounters Date Type Department Care Team (Late st Contact Info) Description 03/01/2025 4:15 PM EDT Office Visit Dermatology at [place] [address] [place] [address] Marek Bonilla MD [address] [place] [address] documented as of this encounter Visit Diagnoses Diagnosis Aortic valve stenosis, unspecified etiology documented in this encounter Care Teams Doctor Of Naprapathic Medicine Relationship Specialty Start Date End Date Deborah Quiroga APRN PCP - General Family Medicine 03/24/16 02/04/23 documented as of this encounter
--- OUTSIDE RECORDS SUMMARY | 2024-03-30 14:33 | XMS_ITS | Encounter Summary ---
Author Organization [facility] [place] [address] Care Team Providers Care Rolling Machine Operator Automatic Name Role Phone Eitan Danni ANURAG Primary Care Provider [phone] Encounter Details Date Type Department Care Team (Late st Contact Info) Description 01/23/2014 9:25 AM EDT - 01/23/2014 10:25 AM EDT Surgery [place] [address] Alan Jacobson MD [facility] [place] [address] CARDIAC CATHETERIZATION Social History Tobacco Use Types [...] by your doctor, do not take any bdvh-zwa-grariee medicines or herbal preparations without first discussing this with your doctor or pharmacist. There is the possibility of side effect and interactions when these are combined. Follow up Care Who to Call with Questions or Problems If there are any questions or problems that you think might be related to your cardiac cath or angioplasty, contact the industrial service technician water conservationist by calling [facility] at . documented in this [...] 4:15 PM EDT Office Visit Dermatology at [place] [address] [place] [address] Marek Bonilla MD [address], [address] [place] [address] documented as of this encounter Procedures Procedure Name Priority Date/Time Associated Diagnosis Comments ECHOCARDIOGRAM TRANSTHORACIC Routine 01/23/2014 3:17 PM EDT SOB (shortness of breath) documented in this encounter Results * Echocardiogram Transthoracic(Leb) (01/23/2014 3:17 PM EDT) Pathologist [employer] EF 50 [employer] SYSTEM Anatomical Region Laterality Modality Other 01/23/2014 Narrative 01/23/2014 4:35 PM EDT Procedure: ? Transthoracic Echocardiogram Patient: ? ANDREW ECHOLS M ?(Age): 1955(58) Med Rec#: ?[id number] ? Sex: ?F ? Site Loc: ?[facility] ? Ht / Wt: ??158(cm)/93(kg) Pt. Loc: ? Adult Floor ?BSA: ?2.02 Study Date: ?01/23/2014 ? Pt. Type: Inpatient Tape: ? Referring: Lee Kincaid ([id number]) Referring: ANNALISA Rib Sawyer: Miguel Beverly Diagnosis:CPT Code(s): ??Echo Full (94767), ??Spectral Doppler (07609), Color Doppler (12485), Indication(s): ??Aortic stenosis Rhythm: Sinus HR ?BP [...] ? Mid-Inferior ?Hypokinetic ? Mid-Inferoseptal ?Hypokinetic ? [place]-Septal ? Hypokinetic ? [place]-Anterior ? Hypokinetic ? [place]-Lateral ?Hypokinetic ? [place]-Inferior ? Hypokinetic ? [place]-Tip ?Hypokinetic ? Chambers ?Value ?Units (Range) ? [...] 01/23/2014 16:34:37 Images reviewed and interpretation verified [facility] Cardiac Ultrasound Laboratory Procedure Note Lee Kincaid MD - 01/23/2014 Procedure: Transthoracic Echocardiogram Patient: ANDREW Mejias (Age): 1955(58) Med Rec#: [id number] Sex: F Site Loc: [facility] Ht / Wt: 158(cm)/93(kg) Pt. Loc: Adult Floor BSA: 2.02 Study Date: 01/23/2014 Pt. Type: Inpatient Tape: Referring: Lee Kincaid ([id number]) Referring: [facility] Rib Sawyer: Miguel Beverly Diagnosis:CPT Code(s): Echo Full (09900), Spectral Doppler (90541), Color Doppler (65596), Indication(s): Aortic stenosis Rhythm: Sinus HR BP [...] Hypokinetic Mid-Posterolateral Hypokinetic Mid-Inferior Hypokinetic Mid-Inferoseptal Hypokinetic [place]-Septal Hypokinetic [place]-Anterior Hypokinetic [place]-Lateral Hypokinetic [place]-Inferior Hypokinetic [place]-Tip Hypokinetic Chambers Value Units (Range) IVSd 2D [...] 01/23/2014 16:34:37 Images reviewed and interpretation verified [facility] Cardiac Ultrasound Laboratory Lee Kincaid [...] RN) documented in this encounter Care Teams Rolling Machine Operator Automatic Relationship Specialty Start Date End Date Danni Laird APRN [address] [place] [address] PCP - General 01/23/14 11/11/14 documented as of this encounter
--- OUTSIDE RECORDS SUMMARY | 2024-03-30 14:33 | XMS_ITS | Encounter Summary ---
Author Organization [facility] [place] [address] Care Team Providers Care Culinary Arts Instructor Name Role Phone Junaid Deborah Shields APRN Primary Care Provider [phone] Encounter Details Date Type Department Care Team (Latest Contact Info) Description 05/19/2016 11:00 AM EDT Clinical [place] [phone] Nonrheumatic aortic valve stenosis Social History Tobacco [...] PM EDT Office Visit Dermatology at [place] [address] [place] [address] Marek Bonilla MD [address], [place] [address] documented as of this encounter Procedures Procedure [...] (Bezet) 448 ms MUSE SYSTEM Calculated P Summers 37 degrees MUSE SYSTEM Calculated R Summers 31 degrees MUSE SYSTEM Calculated T Summers 25 degrees MUSE SYSTEM INTERPRETATION Normal sinus rhythm Normal ECG No previous ECGs available Confirmed by MD Becca, Deangelo ([id number]) on 05/19/2016 5:23:33 PM MUSE SYSTEM 05/19/2016 11:4 3 AM EDT 05/19/2016 5:23 PM EDT Alirio Esparza MD ECG ORDERABLES MUSE SYSTEM documented in this encounter Visit Diagnoses Diagnosis Nonrheumatic aortic valve stenosis Aortic valve disorders documented in this encounter Care Teams Culinary Arts Instructor Relationship Specialty Start Date End Date Deborah Quiroga APRN PCP - General Family Medicine 03/24/16 02/04/23 documented as of this encounter
--- OUTSIDE RECORDS SUMMARY | 2024-03-30 14:33 | XMS_ITS | Encounter Summary ---
Author Organization [facility] Address [facility] [place] [address] Care Team Providers Care Finishing Area Operator Name Role Phone Deborah Quiroga ANURAG Primary Care Provider [phone] Encounter Details Date Type Department Care Team (Late st Contact Info) Description 05/22/2016 Orders Only Cardiology at [address] [address] Chele Randolph PA [facility] [place] [address] Aortic valve stenosis, unspecified etiology Social History [...] 4:15 PM EDT Office Visit Dermatology at [place] [address] [place] [phone] Marek Bonilla MD [address], [place] [address] documented as of this encounter Procedures Procedure Name Priority Date/Time Associated Diagnosis Comments CARDIAC CATHETERIZATION Routine 06/03/20 16 9:13 AM EDT Aortic valve stenosis, unspecified etiology documented in this encounter Results * CARDIAC CATHETERIZATION (06/03/2016 9:13 AM EDT) Anatomical Region Laterality Modality Other Narrative 06/03/2016 10:13 AM EDT ?[facility] ? Cardiac Catheterization/Intervention Report ? Patient Name: Kirstie, Purnima M. ? Procedure Date: 06/03/2016 ? A #: [id number] ? Primary Physician: Nitesh Escobedo ? Case #: [id number] ? File Name: [id number] ? Catheterization Order Number: [id number] ? [facility] ? Final Report [place], [place] ? Patient Name: ? Purnima M. Kirstie ? ID#: ?[id number] ? : ?1955 ? Procedure Date: ? [...] no symptom, no angina (w/i 14 days). [place] ?Cardiovascular Society angina class was 0. This [...] Procedure Note Nitesh Escobedo MD - 09/21/2016 [facility] Cardiac Catheterization/Intervention Report Patient Name: Purnima Thacker Procedure Date: 06/03/2016 A #: [id number] Primary Physician: Nitesh Escobedo Case #: [id number] File Name: [id number] Catheterization Order Number: [id number] [facility] FinalReport [place], [place] Patient Name: Purnima Thacker ID#:[id number] :1955 Procedure Date: June 03, 2016 Case #: [id number] Room: 1 Case Physician: Nitesh Escobedo M.D. Start: 08:22 Fellow: Felicia Corrigan M.D. Admission:06/03/2016 Linda Cary M.D. Discharge:06/03/2016 Referring Physician: Kathy Padron Procedures: * Coronary Angiography * Right Heart Catheterization * Oximetry History Purnmia Thacker is a 60 year old woman. [...] with: no symptom, no angina (w/i 14 days).[place] Cardiovascular Society angina class was 0. This [...] etiology documented in this encounter Care Teams Finishing Area Operator Relationship Specialty Start Date End Date Deborah Quiroga APRN PCP - General Family Medicine 03/24/16 02/04/23 documented as of this encounter
--- OUTSIDE RECORDS SUMMARY | 2024-03-30 14:33 | XMS_ITS | Encounter Summary ---
[place] [address] Care Team Providers Care Printing Machine Operator Name Role Phone Jerel Sofia Garcia APRN Primary Care Provider [phone] Encounter Details Date Type Department Care Team (Late st Contact Info) Description 11/12/2014 8:10 AM EDT - 11/12/2014 11:59 PM EDT Hospital [place] [phone] CLINIC, DR ABE Burrell, Antelmo Porter MD [address] [place] [address] Discharge Disposition: Home Social History Tobacco Use [...] EDT Office Visit Dermatology at [place] [address] [place] [address] Marek Bonilla MD [address], [place] [address] documented as of this encounter Procedures Procedure [...] mLs documented in this encounter Care Teams Printing Machine Operator Relationship Specialty Start Date End Date Sofia Beltrán APRN [address] [place] [address] PCP - General 11/12/14 03/23/16 documented as of this encounter
--- OUTSIDE RECORDS SUMMARY | 2024-03-30 14:33 | XMS_ITS | Encounter Summary ---
Author Organization [facility] Address [facility] [place] [address] Care Team Providers Care Granulator Tender Name Role Phone Mitchell Wilkes MD Primary Care Provider [phone] Encounter Details Date Type Department Care Team (Late st Contact Info) Description 01/19/2014 Orders Only Cardiology at [address] [address] Chele Randolph, PA [facility] [place] [address] Cardiomyopathy (Primary Dx) Social History Tobacco Use [...] 4:15 PM EDT Office Visit Dermatology at [place] [address] [place] [address] Marek Bonilla MD [address], [place] [address] documented as of this encounter Procedures Procedure [...] cardiomyopathies documented in this encounter Care Teams Granulator Tender Relationship Specialty Start Date End Date Mitchell Wilkes MD [facility] PCP - General 06/24/10 01/19/14 documented as of this encounter
--- OUTSIDE RECORDS SUMMARY | 2024-03-30 14:33 | XMS_ITS | Encounter Summary ---
Author Organization [facility] [place] [address] Care Team Providers Care Wireless Field Technician Name Role Phone Junaid Deborah Shields APRN Primary Care Provider [phone] Encounter Details Date Type Department Care Team (Latest Contact Info) Description 05/19/2016 11:20 AM EDT Laboratory [place] [phone] Nonrheumatic aortic valve stenosis Social History Tobacco [...] 4:15 PM EDT Office Visit Dermatology at [place] [address] [place] [address] Marek Bonilla MD [address], [place] [address] documented as of this encounter Procedures Procedure Name Priority Date/Time Associated Diagnosis Comments SCAN, PERIPHERAL BLOOD Routine 05/19/2016 11:32 AM EDT HEMOGRAM Routine 05/19/2016 11:32 AM EDT Nonrheumatic aortic valve stenosis DIFFERENTIAL, AUTOMATED Routine 05/19/2016 11:32 AM EDT Nonrheumatic aortic valve stenosis TYPE AND SCREEN, SDP (FUTURE SURGERY, [facility] SAME DAY PROGRAM ONLY) Routine 05/19/2016 11:32 [...] Peripheral Blood (05/19/2016 11:32 AM EDT) Pathologist [facility] Plat estimate Normal [facility] RBC Morphology Normal [facility] Blood specimen (specimen) 05/19/2016 11:32 AM EDT 05/19/2016 11:41 AM EDT Narrative Resulting Agency Comment Spec In Lab Alirio Esparza MD HEMATOLOGY ORDERABL ES [facility] [place] [address] * (ABNORMAL) Differential, Automated (05/19/2016 11:32 AM EDT) [facility] Neutrophil % 25.9 % [facility] Neutrophil Absolute 0.42(Crit ical) 1.70 - 6.10 x10(3)/mc L [facility] Comment: This result has been called to DR ALIRIO ESPARZA by Alivia Ibarra on 05 19 2016 at 1228, and has been read back. Lymph % 59.9 % [facility] Lymphocytes Abs 1.0 0.9 - 3.2 x10(3)/mc L [facility] Monocyte % 13.0 % [facility] Monocyte Abs 0.2(L) 0.3 - 0.9 x10(3)/[facility] Eos % 0.6 % [facility] Eosinophils Abs 0.0 0.0 - 0.4 x10(3)/ L [facility] Basophil % 0.6 % [facility] Baso Absolute 0.0 0.0 - 0.1 x10(3)/[facility] Immature Gran % 0.00 % [facility] Comment: Immature granulocytes(IG's)percentage and absolute count will include metamyelocytes, myelocytes, and promyelocytes. Blood smears from CBCs yielding IG's will be scanned manually for concordance. If this scan disagrees with the automated IG or if promyelocytes are noted, a manual differential will be performed. Immature Gran Absolute 0.00 0.00 - 0.04 x10(3)/[facility] Blood specimen (specimen) 05/19/2016 11:32 AM EDT 05/19/2016 11:41 AM EDT Narrative Resulting Agency Comment Spec In Lab Alirio Esparza MD HEMATOLOGY ORDERABL ES [facility] [place] [address] * (ABNORMAL) Hemogram (05/19/2016 11:32 AM EDT) White Blood Cell 1.6(Criti gabrielle) 4.0 - 9.5 x10(3)/ L [facility] Comment: This result has been called to DR ALIRIO ESPARZA by Alivia Ibarra on 05 19 2016 at 1228, and has been read back. Red Blood Cell 3.96(L) 4.00 - 5.21 x10(6)/mc L [facility] Hemoglobin 12.5 11.7 - 15.5 gm/dL [facility] Hematocrit 37.9 35.7 - 45.8 % [facility] Mean Cell Volume 95.7(H) 82.6 - 94.4 fL [facility] Mean Cell Hemoglobin 31.6 27.1 - 32.0 pg [facility] Mean Cell Hemoglobin Concentration 33.0 31.7 - 35.0 gm/dL [facility] Platelet 227 145 - 357 x10(3)/mc L [facility] RDW Standard Deviation 40.5 37.0 - 46.0 fL [facility] RDW coefficient of variation 11.5 11.5 - 14.1 % [facility] Mean Platelet Volume 8.4 7.6 - 12.9 fL [facility] NRBC% auto 0.0 % [facility] NRBC Absolute 0.000 0.000 - 0.000 x10(3)/mc L [facility] Blood specimen (specimen) 05/19/2016 11:32 AM EDT 05/19/2016 11:41 AM EDT Narrative Resulting Agency Comment Spec In Lab Alirio Esparza MD HEMATOLOGY ORDERABL ES Performing Organization Address City/State/[facility] Co de Phone Number [facility] [place] [address] * Antibody screen (05/19/2016 11:32 AM EDT) Ab Screen Interp Negative [facility] Expires at [id number] on: 07/03/2016 [facility] Comment: Corrected from 06/11/16 12:00 [Unknown] on 06/09/16 05:51 by Bethanie Tomlinson I.. Corrected from 07/03/16 12:00 [Unknown] on 05/21/16 06:00 by Shelia Barrera Blood specimen (specimen) 05/19/2016 11:32 AM EDT 05/19/2016 11:35 AM EDT Narrative Resulting Agency Comment Spec In Lab Alirio Esparza MD BLOOD BANK LAB ORDSylvia ALEJO [facility] [place] [address] * ABO/Rh Typing (05/19/2016 11:32 AM EDT) ABORH Type B Pos [facility] Blood specimen (specimen) 05/19/2016 11:32 AM EDT 05/19/2016 11:35 AM EDT Narrative Resulting Agency Comment Spec In Lab Alirio Esparza MD BLOOD BANK LAB BETH ALEJO Performing Organization Address City/[facility]/ZIP Co de Phone Number [facility] [place] [address] * Basic Metabolic Panel (non-fasting) (05/19/2016 11:32 AM EDT) Pathologist [facility] Glucose 86 65 - 199 mg/dL [facility] Comment:Diabetes: >=200 mg/d L plus symptoms Blood Urea Nitrogen 13 8 - 18 mg/dL [facility] Creatinine 0.95 0.70 - 1.20 mg/dL [facility] Comment: Please note that the pediatric reference intervals supplied above were not validated at [facility]. Results from pediatric patients should be interpreted in conjunction to the patient's age, height and muscle mass. Sodium 140 135 - 145 mmol/L [facility] Potassium 4.3 3.5 - 5.0 mmol/L [facility] Comment: Please note: ??Patients with WBC >100,000 may have falsely elevated Potassium levels. ??For accurate Potassium quantification in these patients send serum separator tube (gold top) for subsequent determinations. ??Contact the Clinical Chemistry Laboratory if there are any questions. Chloride 101 98 - 107 mmol/L [facility] Carbon Dioxide 27 22 - 31 mmol/L [facility] Anion Gap 12 5 - 15 mmol/L [facility] Calcium 10.1 8.5 - 10.5 mg/dL [facility] Est Glomerular Filtration Rate 60 >=60 [facility] Comment: This [...] the following links into your internet browser. [email or web address] Blood specimen (specimen) 05/19/2016 11:32 AM EDT 05/19/2016 11:41 AM EDT Narrative Resulting Agency Comment Spec In Lab Alirio Esparza MD CHEMISTRY ORDERABLE S [facility] [place] [phone] documented in this encounter Visit Diagnoses Diagnosis Nonrheumatic aortic valve stenosis Aortic valve disorders documented in this encounter Care Teams Wireless Field Technician Relationship Specialty Start Date End Date Deborah Quiroga APRN PCP - General Family Medicine 03/24/16 02/04/23 documented as of this encounter
--- OUTSIDE RECORDS SUMMARY | 2024-03-30 14:33 | XMS_ITS | Encounter Summary ---
Author Organization [facility] [place] [address] Care Team Providers Care Spot Cleaner Name Role Phone EitanDanni ANURAG Primary Care Provider [phone] Encounter Details Date Type Department Care Team (Late st Contact Info) Description 01/22/2014 Telephone Cardiology at [address] [phone] Cynthia Arrington LPN Social History Tobacco Use [...] - 01/23/2014 2:39 PM EDT This mortgage or loan underwriter did not receive a call [...] 4:15 PM EDT Office Visit Dermatology at [place] [address] [place] [address] Marek Bonilla MD [address] [place] [address] documented as of this encounter Visit Diagnoses Not on filedocumented in this encounter Care Teams Spot Cleaner Relationship Specialty Start Date End Date Danni Laird APRN [address] [place] [address] PCP - General 01/23/14 11/11/14 documented as of this encounter
--- OUTSIDE RECORDS SUMMARY | 2024-03-30 14:33 | XMS_ITS | Encounter Summary ---
Author Organization [facility] Address [facility] [place] [address] Care Team Providers Care Spiritual Minister Name Role Phone JunaidAshley hargrovezac Shields APRN Primary Care Provider [phone] Reason for Visit * Auth/Cert Specialty Diagnoses / Procedures Referred By Crispin t Referred To Contact Diagnoses AVS Procedures CARDIAC CATHETERIZATION Referral ID Status Reason Start Date Expiration Date Visits Re quested Visits Authorized [id number] 1 1 Encounter Details Date Type Department Care Team (Late st Contact Info) Description 06/03/2016 6:32 AM EDT - 06/03/2016 1:10 PM EDT Hospital Encounter [place] [id number] Anjum Oliveros II, MD [facility] [place] [address] Mario Alberto Escobedo MD [facility] [place] [address] Aortic valve stenosis, unspecified etiology; Nonrheumatic aortic [...] by your doctor, do not take any midc-prt-qinfjrp medicinesor herbal preparations without first discussing this with your doctor or pharmacist. There is the possibility of side effects and interactions when these are combined. Follow Up Care Who to call with questions or problems If there are any questions or problems that you think might be related to your cardiac cath or angioplasty, contact the radiology equipment servicer supervisor calibration by calling [facility] at . * Patient Instructions* Felicia Corrigan - 06/03/2016 9:33 AM EDT Cardiology Instructions Call your doctor if: Chest pain, dyspnea, pain or swelling in legs occurs. If you have non-emergent questions between now and the time of your follow up appointments: -During 8am-5pm Wednesday through Wednesday call [phone] to speak with a nurse in the cardiology clinic -All other times call [phone] and ask to speak to the transportation escort supervisor calibration. MEDICATIONS - restart your spironolactone, discontinue prior [...] Appointments: Primary care provider: Cardiology: Deborah Hahn, HEMATOLOGY TECHNICIAN [phone] Follow up as planned or as needed. Dr. Esparza [phone] Other follow-up appointment: Hematology - Dr. Mario [...] start work-up for the hematologic disorder. MARIO ALBRETO ESCOBEDO MD documented in this encounter H&P [...] 4:15 PM EDT Office Visit Dermatology at [place] [address] [facility] [place] [address] Marek Bonilla MD [address] [facility] Katherine DERMATOLOGY [place], [place] [id number] documented as of this encounter Procedures Procedure [...] Green Tube HOLD (06/03/2016 11:45 AM EDT) [facility] Green Hold Sample in lab. [facility] Blood specimen (specimen) Venous Draw / Unknown 06/03/2016 11:45 AM EDT 06/03/2016 12:12 PM EDT Mario Alberto Escobedo MD CHEMISTRY ORDERABLES Performing Organization Address [facility] Co de Phone Number [facility] [place] [address] * Methylmalonic acid, serum (06/03/2016 11:45 AM EDT) [facility] Methylmalonic Acid (NOVEMBER) 0.21 <=0.40 nmol/mL [facility] Comment: Test Performed by: [place] [address] Historiography Teacher: Raymond Chaudhry II, M.D., Ph.D. Blood specimen (specimen) 06/03/2016 11:45 AM EDT 06/03/2016 1:57 PM EDT Narrative Resulting Agency Comment Spec In Lab Mario Alberto Escobedo MD LAB SEND OUT ORDERAB LES Performing Organization Address [facility] Co de Phone Number [facility] [place] [address] * Granulocyte Antibody (06/03/2016 11:45 AM EDT) [facility] Granulocyte Ab (NOVEMBER) Negative Not Applicable [facility] Comment: ADDITIONAL INFORMATION Method: Immunofluorescent Assay Performing Laboratory CLIA# [id number] This test was developed and its performance characteristics determined by [facility] in a manner consistent with CLIA requirements. This test has not been cleared or approved by the U.S. Food and Drug Administration. Test Performed by: [facility] - [address] [address] Historiography Teacher: Raymond Chaudhry II, M.D., Ph.D. Blood specimen (specimen) 06/03/2016 11:45 AM EDT 06/03/2016 1:57 PM EDT Narrative Resulting Agency Comment Spec In Lab Mario Alberto Escobedo MD LAB SEND OUT ORDERAB LES Performing Organization Address [facility] Co de Phone Number [facility] [place] [address] * TSH (06/03/2016 11:45 AM EDT) Thyroid Stimulating Hormone 2.18 0.27 - 4.20 mcIU/mL [facility] Blood specimen (specimen) 06/03/2016 11:45 AM EDT 06/03/2016 12:11 PM EDT Narrative Resulting Agency Comment Spec In Lab Mario Alberto Escobedo MD CHEMISTRY ORDERABLES Performing Organization Address [facility] Co de Phone Number [facility] [place] [address] * Homocysteine Total, Plasma (06/03/2016 11:45 AM EDT) Homocystine 9 <=15 mcmol/L [facility] Blood specimen (specimen) 06/03/2016 11:45 AM EDT 06/03/2016 12:11 PM EDT Narrative Resulting Agency Comment Spec In Lab Mario Alberto Escobedo MD CHEMISTRY ORDERABLES Performing Organization Address [facility] Co de Phone Number [facility] [place] [address] * Folate, serum (06/03/2016 11:45 AM EDT) Folate >20.0 4.8 - 24.2 ng/mL [facility] Blood specimen (specimen) 06/03/2016 11:45 AM EDT 06/03/2016 12:04 PM EDT Narrative Resulting Agency Comment Spec In Lab Mario Alberto Escobedo MD CHEMISTRY ORDERABLES Performing Organization Address City/[facility] Co de Phone Number [facility] [place] [address] * (ABNORMAL) Sedimentation rate (06/03/2016 11:45 AM EDT) Pathologist [facility] Sedimentation Rate Automated 41(H) 0 - 20 mm/hr [facility] Blood specimen (specimen) 06/03/2016 11:45 AM EDT 06/03/2016 12:04 PM EDT Narrative Resulting Agency Comment Spec In Lab Mario Alberto Escobedo MD HEMATOLOGY ORDERABLE S Performing Organization Address [facility] Co de Phone Number [facility] [place] [address] * Lactate Dehydrogenase (06/03/2016 11:45 AM EDT) Lactate Dehydrogenase 164 110 - 220 unit/L [facility] Blood specimen (specimen) 06/03/2016 11:45 AM EDT 06/03/2016 12:11 PM EDT Narrative Resulting Agency Comment Spec In Lab Mario Alberto Escobedo MD CHEMISTRY ORDERABLES Performing Organization Address [facility] Co de Phone Number [facility] [place] [address] * Comprehensive metabolic panel (non-fasting) (06/03/2016 11:45 AM EDT) Glucose 90 65 - 199 mg/dL [facility] Comment:Diabetes: >=200 mg/d L plus symptoms Blood Urea Nitrogen 11 8 - 18 mg/dL [facility] Creatinine 0.83 0.70 - 1.20 mg/dL [facility] Comment: Please note that the pediatric reference intervals supplied above were not validated at [facility]. Results from pediatric patients should be interpreted in conjunction to the patient's age, height and muscle mass. Sodium 143 135 - 145 mmol/L [facility] Potassium 4.0 3.5 - 5.0 mmol/L [facility] Comment: Please note: ??Patients with WBC >100,000 may have falsely elevated Potassium levels. ??For accurate Potassium quantification in these patients send serum separator tube (gold top) for subsequent determinations. ??Contact the Clinical Chemistry Laboratory if there are any questions. Chloride 104 98 - 107 mmol/L [facility] Carbon Dioxide 25 22 - 31 mmol/L [facility] Anion Gap 14 5 - 15 mmol/L [facility] Calcium 9.2 8.5 - 10.5 mg/dL [facility] Protein, Total 7.0 6.1 - 8.0 gm/dL [facility] Albumin 4.0 3.2 - 5.2 gm/dL [facility] Aspartate Aminotransferase 17 0 - 30 unit/L [facility] Alanine Aminotransferase 9 0 - 30 unit/L [facility] Alkaline Phosphatase 81 40 - 104 unit/L [facility] Bilirubin, Total 0.4 0.2 - 1.3 mg/dL [facility] Bilirubin, Direct 0.1 0.0 - 0.3 mg/dL [facility] Est Glomerular [...] the following links into your internet browser. [email or web address] Blood specimen (specimen) 06/03/2016 11:45 AM EDT 06/03/2016 12:11 PM EDT Narrative Resulting Agency Comment Spec In Lab Mario Alberto Escobedo MD CHEMISTRY ORDERABLES [facility] [place] [address] documented in this encounter Visit Diagnoses Diagnosis [...] Hernandez) documented in this encounter Care Teams Spiritual Minister Relationship Specialty Start Date End Date Deborah Quiroga, HEMATOLOGY TECHNICIAN PCP - General Family Medicine 03/24/16 02/04/23 documented as of this encounter
--- OUTSIDE RECORDS SUMMARY | 2024-03-30 14:33 | XMS_ITS | Encounter Summary ---
Author Organization [facility] Address [facility] [address] Care Team Providers Care Inspector Handbag Frames Name Role Phone Deborah Quiroga APRN Primary Care Provider [phone] Encounter Details Date Type Department Care Team (Late st Contact Info) Description 06/16/2016 Orders Only Hematology [place] [address] Nitesh Pina Jr., MD [facility] [address] [place] [address] Cyclical neutropenia Social History Tobacco Use Types [...] 4:15 PM EDT Office Visit Dermatology at [place] [address] [facility] [place] [address] Marek Bonilla MD [address], TOD[place] A DERMATOLOGY [place], [place] [phone] documented as of this encounter Visit Diagnoses Diagnosis Cyclical neutropenia Cyclic neutropenia documented in this encounter Care Teams Inspector Handbag Frames Relationship Specialty Start Date End Date Deborah Quiroga APRN PCP - General Family Medicine 03/24/16 02/04/23 documented as of this encounter
--- OUTSIDE RECORDS SUMMARY | 2024-03-30 14:33 | XMS_ITS | Encounter Summary ---
[place] [address] Care Team Providers Care Loom Control Chain Builder Name Role Phone Mitchell Wilkes MD Primary Care Provider [phone] Reason for Visit * Reason Onset Date Comments Other 01/18/2014 Encounter Details Date Type Department Care Team (Late st Contact Info) Description 01/18/2014 Telephone Cardiology at [address] [address] Jesusita Garces Other Social History [...] Office Visit Dermatology at [address] [address] Marek Bonilla MD [address] [place] [address] RD, [place] [address] documented as of this encounter Visit Diagnoses Not on filedocumented in this encounter Care Teams Loom Control Chain Builder Relationship Specialty Start Date End Date Mitchell Wilkes MD [facility] PCP - General 06/24/10 01/19/14 documented as of this encounter
--- OUTSIDE RECORDS SUMMARY | 2024-03-30 14:33 | XMS_ITS | Encounter Summary ---
Author Organization [facility] [place] [address] Care Team Providers Care Computer Engineering Technician Name Role Phone Deborah Quiroga APRN Primary Care Provider [phone] Encounter Details Date Type Department Care Team (Late st Contact Info) Description 06/09/2016 Orders Only Hematology [place] [address] Nitesh Pina Jr., MD [facility] [address] [place] [address] Cyclical neutropenia Social History Tobacco Use Types [...] [facility] [place] [address] Marek Bonilla MD [address] [facility], [place] [address] documented as of this encounter Results * Immunophenotyping Flow Cytometry (06/09/2016 4:53 PM EST) Immunophenotyping Flow See Comment [facility] Comment: When completed by the Pathologist, the Flow Cytometry Report ([id number]) will display under the Pathology Results section within [facility]. Specimen of unknown material (specimen) 06/09/2016 4:53 PM EST 06/09/2016 5:00 PM EST Narrative Resulting Agency Comment Spec In Lab Nitesh Pina Jr., MD HEMATOLOGY ORDERABLE S Performing Organization Address City/State/[facility] Co de Phone Number [facility] [place] [address] documented in this encounter Visit Diagnoses Diagnosis Cyclical neutropenia Cyclic neutropenia documented in this encounter Care Teams Computer Engineering Technician Relationship Specialty Start Date End Date Deborah Quiroga, TAX CREDIT LEASING CONSULTANT PCP - General Family Medicine 03/24/16 02/04/23 documented as of this encounter
--- OUTSIDE RECORDS SUMMARY | 2024-03-30 14:33 | XMS_ITS | Encounter Summary ---
Author Organization [facility] Address [facility] [place] [address] Care Team Providers Care Rhinestone Setter Name Role Phone EitanMagnusDanni ANURAG Primary Care Provider Encounter Details Date Type Department Care Team (Latest Contact Info) Description 01/23/2014 7:45 AM EDT - 01/23/2014 5:50 PM EDT Hospital En[place] [address] Alan Jacobson MD [facility] [place] [address] Cardiomyopathy; SOB (shortness of breath) Discharge Disposition: [...] by your doctor, do not take any anwb-qka-mfvvqfy medicines or herbal preparations without first discussing this with your doctor or pharmacist. There is the possibility of side effect and interactions when these are combined. Follow up Care Who to Call with Questions or Problems If there are any questions or problems that you think might be related to your cardiac cath or angioplasty, contact the copy manager enterprise integration architect by calling [facility] at . documented in this encounter Medications [...] documented in this encounter H&P Notes * Aleksadnr Majano - 01/23/2014 10:38 AM EDT Pre-Cardiac [...] 4:15 PM EDT Office Visit Dermatology at [place] [address] [facility] [place] [address] Marek Bonilla MD [address], [place] [address] documented as of this encounter Procedures Procedure [...] ANDREW ECHOLS M ?(Age): 1955(58) Med Rec#: ?[id number] ? Sex: ?F ? Site Loc: ?[facility] ? Ht / Wt: ??158(cm)/93(kg) Pt. Loc: ? Adult Floor ?BSA: ?2.02 Study Date: ?01/23/2014 ? Pt. Type: Inpatient Tape: ? Referring: Lee Kincaid ([id number]) Referring: ANNALISA Channel Development Manager: Miguel Beverly Diagnosis:CPT Code(s): ??Echo Full (40471), ??Spectral Doppler (54382), Color Doppler (29375), Indication(s): ??Aortic stenosis Rhythm: Sinus HR ?BP [...] ? Mid-Inferior ?Hypokinetic ? Mid-Inferoseptal ?Hypokinetic ? [place]-Septal ? Hypokinetic ? [place]-Anterior ? Hypokinetic ? [place]-Lateral ?Hypokinetic ? [place]-Inferior ? Hypokinetic ? [place]-Tip ?Hypokinetic ? Chambers ?Value ?Units (Range) ? [...] Patient: ANDREW Mejias (Age): 1955(58) Med Rec#: [id number] Sex: F Site Loc: [facility] Ht / Wt: 158(cm)/93(kg) Pt. Loc: Adult Floor BSA: 2.02 Study Date: 01/23/2014 Pt. Type: Inpatient Tape: Referring: Lee Kincaid ([id number]) Referring: ANNALISA Channel Development Manager: Miguel Beverly Diagnosis:CPT Code(s): Echo Full (73490), Spectral Doppler (59384), Color Doppler (17281), Indication(s): Aortic stenosis Rhythm: Sinus HR BP [...] Hypokinetic Mid-Posterolateral Hypokinetic Mid-Inferior Hypokinetic Mid-Inferoseptal Hypokinetic [place]-Septal Hypokinetic [place]-Anterior Hypokinetic [place]-Lateral Hypokinetic [place]-Inferior Hypokinetic [place]-Tip Hypokinetic Chambers Value Units (Range) IVSd 2D [...] RN) documented in this encounter Care Teams Rhinestone Setter Relationship Specialty Start Date End Date Danni Laird APRN [address] [place] [address] PCP - General 01/23/14 11/11/14 documented as of this encounter
--- OUTSIDE RECORDS SUMMARY | 2024-03-30 14:33 | XMS_ITS | Encounter Summary ---
Author Organization [facility] Address [facility] [place] [address] Care Team Providers Care Transfill Technician Name Role Phone Deborah Quiroga APRN Primary Care Provider [phone] Encounter Details Date Type Department Care Team (Latest Contact Info) Description 05/19/2016 11:52 AM EDT - 05/19/2016 11:59 PM EDT Hospital Encounter XRay at [address] [place] [address] Alirio Esparza MD Nonrheumatic aortic valve stenosis [...] 4:15 PM EDT Office Visit Dermatology at [place] [address] [place] [address] Marek Bonilla MD [address] [address], [place] [address] documented as of this encounter Procedures Procedure [...] disorders documented in this encounter Care Teams Transfill Technician Relationship Specialty Start Date End Date Deborah Quiroga, MAJOR GIFTS OFFICER PCP - General Family Medicine 03/24/16 02/04/23 documented as of this encounter
== END 2024-04-01 23:59 | disposition home or self-care (01) ==
LOC: CR 14:25
PROVIDERS: PCP Family Medicine; Visit Provider Internal Medicine Cardiovascular Disease
DX: R69 Illness, unspecified (principal)

== ENCOUNTER → 2024-04-17 12:49 | Outpatient (BNVA) | payer MEDICARE, BC, SELFPAY | PROVIDERS: PCP Family Medicine; Visit Provider Internal Medicine Cardiovascular Disease | DX: Z95.3 Presence of xenogenic heart valve (principal); I42.9 Cardiomyopathy, unspecified | CPT/HCPCS: 99213 ==

== ENCOUNTER 2024-04-27 14:58 | Outpatient (RCR) | payer SELFPAY ==
[2024-04-02 00:32] VITALS: BP 139/59; PULSE 85
[2024-04-04 14:10] VITALS: BP 118/67; PULSE 52
--- OUTSIDE RECORDS SUMMARY | 2024-04-04 14:14 | XMS_ITS | Encounter Summary ---
Author Organization [facility] Address [address] [place] [address] Care Team Providers Care Insurance Manager Name Role Phone Ashley Chavez Primary Care Provider [phone] Encounter Details Date Type Department Care Team (Late st Contact Info) Description 03/21/2024 Lab Requisition [facility] Pathology & Laboratory Medicine - [address] [id number] Outr Resulting Lab, Provider Social History Tobacco [...] 197 mg/dL 03/22/2024 10:25 EDT [facility] Blood VENOUS BLOOD / Unknown 03/21/2024 13:00 EDT 03/21/2024 21:50 EDT Provider Outr Resulting Lab CHEMISTRY & BLOOD GAS ORDERABLES [facility] [address] [place] [address] documented in this encounter Visit Diagnoses Not on filedocumented in this encounter Care Teams Insurance Manager Relationship Specialty Start Date End Date Ashley Chavez ARNP [address] [place] [address] PCP - General 07/11/10 documented as of this encounter
--- OUTSIDE RECORDS SUMMARY | 2024-04-04 14:14 | XMS_ITS | Encounter Summary ---
[place] [address] Care Team Providers Care Sales Clerk Supervisor Name Role Phone Magdalena Acosta MD Primary Care Provider [phone] Encounter Details Date Type Department Care Team (Latest Contact Info) Description 10/05/2023 10:52 AM EST - 10/05/2023 11:59 PM [facility] Hospital [place] [address] Mixed connective tissue disease Discharge Disposition: Home [...] PM EDT Office Visit Dermatology at [place] [address] [place] [address] Marek Bonilla MD [address] [place] [address] documented as of this encounter Procedures Procedure [...] PFT FEV1/FVC Pre-BD Z-Score 0 COMPAS PFT ZIU93-42 Actual Pre-BD 2.41 % COMPAS PFT TNQ30-83 Predicted 1.8 % COMPAS PFT EIH70-91 Pre-BD % of Predicted 134 % COMPAS PFT SVN38-70 Pre-BD Z-Score 0.81 COMPAS PFT DLCO Hb [...] tissue documented in this encounter Care Teams Sales Clerk Supervisor Relationship Specialty Start Date End Date Magdalena Acosta MD [address] [place] [address] PCP - General Family Medicine 02/05/23 documented as of this encounter
--- OUTSIDE RECORDS SUMMARY | 2024-04-04 14:14 | XMS_ITS | Encounter Summary ---
Author Organization [facility] [place] [address] Care Team Providers Care Line Maintenance Name Role Phone Magdalena Acosta MD Primary Care Provider [phone] Reason for Visit * Reason Comments Aortic Stenosis Coronary Artery Disease Hypertension Encounter Details Date Type Department Care Team (Latest Contact Info) Description 11/16/2023 11:40 AM EDT TH Visit (TeleHealth) Cardiology at [address] [address] Jay Maza PA [facility] [place] [address] Aortic valve stenosis, etiology of cardiac valve disease unspecified; Coronary artery disease, unspecified vessel or lesion type, unspecified whether angina present, unspecified whether [place] or transplanted heart Social History Tobacco Use [...] from the original note were not included. [facility] Interventional Cardiology CARDIOLOGY TELE VISIT NOTE 11/16/23 Patient: Purnima Thacker Prior to the initiation of our discussion, the risks and benefits of tele health visits were discussed, and the patient consented verbally to this being a virtual telehealth visit in lieu of an in person office visit. CARDIOLOGISTS: Antelmo Sharma MD ([facility] Cards) Maria Luz Mejia MD ([facility] Cards - [facility]) Problem List: Aortic valve stenosis: [...] fraction I35.0 Mild coronary artery disease by [facility] 11/09/2022 I25.10 Heart failure with reduced ejection [...] notable for coronary artery protection given low mcswp-ip-ubqqsths distance. There was no obstruction post Valve [...] had a very reassuring recent echo in [facility], in scanned docs. LVEF 55%. [...] leads Confirmed by MD Harshil, Haris Bell ([id number]) on 05/10/2023 8:11:46 AM Cardiac Cath 11/09/2022 [...] in one year. EKATERINA Thompson Time spent: 8825XOD3 0-5min 8363OLH1 6-10min 8988LOO4 11-15min x 1129CPT5 16-20min 7588LDP1 21-30min 6737PZW9 31-40min 1059NUA8 40+ min Jay Maza PA-C Interventional Cardiology [facility] Pager [phone] documented in this encounter Plan of Treatment Upcoming Encounters Date Type Department Care Team (Late st Contact Info) Description 03/01/2025 4:15 PM EDT Office Visit Dermatology at [address] [place] [address] Marek Bonilla MD [address] [facility] [place] [address] documented as of this encounter Visit Diagnoses Diagnosis Aortic valve stenosis, etiology of cardiac valve disease unspecified Coronary artery disease, unspecified vessel or lesion type, unspecified whether angina present, unspecified whether [place] or transplanted heart documented in this encounter Care Teams Line Maintenance Relationship Specialty Start Date End Date Magdalena Acosta MD [address] [place] [address] PCP - General Family Medicine 02/05/23 documented as of this encounter
--- OUTSIDE RECORDS SUMMARY | 2024-04-04 14:14 | XMS_ITS | Encounter Summary ---
Author Organization [facility] Address [address] [place] [address] Care Team Providers Care Dental Office Assistant Name Role Phone Ashley Chavez Primary Care Provider [phone] Encounter Details Date Type Department Care Team (Late st Contact Info) Description 05/12/2022 Lab Requisition [facility] Pathology & Laboratory Medicine - [address] [address] Outr Resulting Lab, Provider Social History Tobacco [...] 14:32 EDT) Hold Hold 05/12/2022 22:46 EDT [facility] Blood VENOUS BLOOD / Unknown 05/12/2022 14:32 EDT 05/12/2022 21:40 EDT Provider Outr Resulting Lab LAB INFO SER VICE AND SUPPORT & PHONE RESULT Performing Organization Address [facility]/ZIP Co de Phone Number [facility] [address] [place] [address] * (ABNORMAL) HOMOCYSTEINE (05/12/2022 14:32 EDT) Homocysteine 14.7(H) 5.0 - 13.9 umol/L 05/13/2022 9:05 EDT [facility] Comment:Results may be false ly elevated if sample is not collected on ice or is not removed from cells within 1 hour of collection. Blood VENOUS BLOOD / Unknown 05/12/2022 14:32 EDT 05/12/2022 21:40 EDT Narrative [facility] - 05/13/2022 9:05 EDT Reference [...] & BLOOD GAS ORDERABLES Performing Organization Address [facility] Co de Phone Number [facility] [address] [place] [address] * HAPTOGLOBIN (05/12/2022 14:32 EDT) Pathologist [facility] Haptoglobin 138 32 - 197 mg/dL 05/13/2022 9:55 EDT [facility] Blood VENOUS BLOOD / Unknown 05/12/2022 14:32 EDT 05/12/2022 21:36 EDT Provider Outr Resulting Lab CHEMISTRY & BLOOD GAS ORDERABLES Performing Organization Address [facility] Co de Phone Number [facility] [address] [place] [address] * (ABNORMAL) ANTI NUCLEAR AB (FRANCISCO), IFA (05/12/2022 14:32 EDT) FRANCISCO Interpretation Positive(A) Negative 05/13/2022 14:44 EDT [facility] Comment: Result is equal to or greater than 1:5120. For titers greater than or equal to 1:160 (except the centromere, nucleolar, and dense fine speckled patterns) it is recommended that specific, follow-up autoantibody testing (such as for dsDNA and Extractable Nuclear Antigens) be performed on all diffuse and/or speckled patterns. FRANCISCO Titer and Pattern 1 1:5120 Speckled 05/13/2022 14:44 EDT [facility] Blood VENOUS BLOOD / Unknown 05/12/2022 14:32 EDT 05/12/2022 21:36 EDT Narrative [facility] - 05/13/2022 14:44 EDT Results were obtained with the INOVA NOVA Lite HEp-2 FRANCISCO Kit by indirect immunofluorescence. Provider Outr Resulting Lab IMMUNOLOGY A ND SEROLOGY ORDERABLES [facility] [address] [place] [address] documented in this encounter Visit Diagnoses Not on filedocumented in this encounter Care Teams Dental Office Assistant Relationship Specialty Start Date End Date Ashley Chavez ARNP [address] [place] [address] PCP - General 07/11/10 documented as of this encounter
--- OUTSIDE RECORDS SUMMARY | 2024-04-04 14:14 | XMS_ITS | Encounter Summary ---
Author Organization [facility] Address [address] [place] [address] Care Team Providers Care Farm Management Teacher Name Role Phone Scott, Ashley WILLIAM Primary Care Provider [phone] Encounter Details Date Type Department Care Team (Late st Contact Info) Description 03/21/2024 Lab Requisition [facility] Pathology & Laboratory Medicine - [address] [address] Consuelo Guerrero, DO [address] [place], [place] [id number] Encounter for other general examination Social History [...] EDT) LORY Negative 03/21/2024 22:31 EDT [facility] Blood VENOUS BLOOD / Unknown 03/21/2024 13:00 EDT 03/21/2024 21:51 EDT Consuelo Guerrero DO BLOOD BANK TESTS [facility] [address] [place] [address] documented in this encounter Visit Diagnoses Diagnosis Encounter for other general examination documented in this encounter Care Teams Farm Management Teacher Relationship Specialty Start Date End Date Ashley Chavez ARNP [address] [place] [address] PCP - General 07/11/10 documented as of this encounter
--- OUTSIDE RECORDS SUMMARY | 2024-04-04 14:14 | XMS_ITS | Encounter Summary ---
Author Organization [facility] Address [address] [place] [address] Care Team Providers Care Biotech Production Specialist Name Role Phone Unavailable Primary Care Provider Unavailabl e Encounter Details Date Type Department Care Team (Late st Contact Info) Description 03/24/2007 11:06 EDT - 03/24/2007 11:59 EDT Hospital Encounter [facility] - Other [address] [place] [address] Ashley Chavez ARNP [address] [place] [address] Discharge Disposition: Home or Self Care Social [...]
--- OUTSIDE RECORDS SUMMARY | 2024-04-04 14:14 | XMS_ITS | Encounter Summary ---
Author Organization [facility] [place] [address] Care Team Providers Care Technical Support Agent Name Role Phone Magdalena Acosta MD Primary Care Provider [phone] Encounter Details Date Type Department Care Team (Late st Contact Info) Description 12/02/2023 11:15 AM EDT [place] [address] Magdalena Peralta MD [address] [place] [address] Mixed connective tissue disease Social History Tobacco [...] 1:5120 speckled; VIC negative; Myositis panel with CASE REPAIRER ab 149.1 (positive); Anti U1RNP IgG [...] list of questions that she sent via [facility] ahead of her visit, which we [...] exposure. She has an appointment with her Bench Hand Machine scheduled in January. (Dr Bonilla in [place]) ROS (positives in bold): Gen: no fevers, [...] but I encouraged her to contact her Bench Hand Machine to see if she could have her [...] Dr. Tanisha Peralta MD Rheumatology Fellow Pager: [phone] * Federico Yee MD - 12/02/2023 11:15 [...] 4:15 PM EDT Office Visit Dermatology at [place] [address] [place] [address] Marek Bonilla MD [address] [facility] [place] [address] Scheduled Orders Name Type Priority Associated Diagnoses Orde r Schedule EKG 12 Lead ECG Routine Mixed connective tissue disease Expected: 12/02/2023, Expires: 06/03/2024 documented as of this encounter Visit Diagnoses Diagnosis Mixed connective tissue disease Other specified diffuse disease of connective tissue documented in this encounter Care Teams Technical Support Agent Relationship Specialty Start Date End Date Magdalena Acosta MD [address] [place] [address] PCP - General Family Medicine 02/05/23 documented as of this encounter
--- OUTSIDE RECORDS SUMMARY | 2024-04-04 14:14 | XMS_ITS | Encounter Summary ---
Author Organization [facility] Address [address] [place] [address] Care Team Providers Care Dimethylaniline Sulfator Operator Name Role Phone Ashley Chavez Primary Care Provider [phone] Encounter Details Date Type Department Care Team (Late st Contact Info) Description 06/23/2016 Results Only [facility] [phone] Matthew Acevedo, DO [address] [facility] [place] [place] [address] [place] [address] Social History Tobacco Use Types Packs/Day [...] ? 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 Accession #: ? [id number] : ? 1955 (Age: 60) ??F ?Collect [...] ??400 ?? KARYOTYPE: 46,XX[25] End of Report [facility] 06/23/2016 06/24/2016 Matthew Acevedo DO PATHOLOGY ORDER JODIE [facility] [address] [place] [address] * FLOW CYTOMETRY (06/23/2016 0:00 EST) Pathology Report: FLOW CYTOMETRY REPORT Reports generated via electronic interface contain original data; however they are lacking the format of the original report. Caution should be taken when reading/interpreting unformatted reports. Name: ? 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 Accession #: ? [id number] : ? 1955 (Age: 60) ??F ?Collect Date: ? 06/23/2016 00:00 Location: ? [facility] ? Receive Date: ? 06/24/2016 08:00 Provider: ?MATTHEW ACEVEDO DO Copy to: ?WINTER HANKINS FIRE CREW SPECIALIST MARIO ALBERTO RAMOS MD ? FINAL IMMUNOPHENOTYPIC INTERPRETATION: ? Bone marrow, flow cytometric analysis: -No immunophenotypic evidence of a clonal cell population. ??See comment. ? COMMENT: The results of flow cytometry show no immunophenotypic evidence of involvement by a clonal lymphoproliferative or myeloproliferative disorder. ??Correlation of these findings with morphologic and clinical data is essential. ??Please refer to pathology report number [id number] for morphologic details. ? Document reviewed and [...] the Department of Pathology and Laboratory Medicine, [place] ??It has not been cleared or [...] clinical laboratory testing. End of Report ?? [facility] 06/23/2016 06/24/2016 8:0 0 EST Matthew Acevedo DO PATHOLOGY ORDER JODIE [facility] [address] [place] [address] * BONE MARROW/HEMPATH CONSULT (06/23/2016 0:00 EST) Pathology Report: BONE MARROW REPORT Reports generated via electronic interface contain original data; however they are lacking the format of the original report. Caution should be taken when reading/interpreting unformatted reports. Name: ? 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 Accession #: ? [id number] : ? 1955 (Age: 60) ??F ?Collect Date: ? 06/23/2016 Location: ? [facility] ? Receive Date: ? 06/24/2016 Provider: ? MATTHEW ACEVEDO DO Copy to: ?WINTER HANKINS FIRE CREW SPECIALIST MARIO ALBERTO RAMOS MD ? DIAGNOSIS: Peripheral [...] #1: Aggregate biopsy length: 8 mm with skinner pelts trabeculae of lamellar bone, cellular bone marrow, [...] SEE ABOVE DISCUSSION Lambda (polyclonal, Dako) ??(B1): [place] (polyclonal, Dako) ??(B1): Biopsy (decalcified) #2: Aggregate biopsy length: 8 mm with skinner pelts trabeculae of lamellar bone, cellular bone marrow, [...] (M115, Leica) ??(B2): Lambda (polyclonal, Dako) ??(B2): [place] (polyclonal, Dako) ??(B2): NOTE: ??One or more [...] performance characteristics have been determined by [facility]. ??The positive and negative controls [...] ? 1% Blasts ?1% Special Studies Cytogenetics ([id number]): Pending. Flow Cytometry ([id number]): No immunophenotypic evidence of a clonal cell population. ? End of Report [facility] 06/23/2016 06/24/2016 Matthew Acevedo DO PATHOLOGY ORDER JODIE [facility] [address] [place] [address] documented in this encounter Visit Diagnoses Not on filedocumented in this encounter Care Teams Dimethylaniline Sulfator Operator Relationship Specialty Start Date End Date Ashley Chavez ARNP [address] [place] [address] PCP - General 07/11/10 documented as of this encounter
--- OUTSIDE RECORDS SUMMARY | 2024-04-04 14:14 | XMS_ITS | Encounter Summary ---
Author Organization [facility] Address [address] [place] [address] Care Team Providers Care Roof Painter Name Role Phone Unavailable Primary Care Provider Unavailabl e Encounter Details Date Type Department Care Team (Late st Contact Info) Description 07/08/2010 10:55 EST - 07/08/2010 10:56 EST Hospital Encounter [facility] - Other [address] [place] [address] Ashley Chavez, WILLIAM [address] [place] [address] Discharge Disposition: Home or Self Care Social [...]
--- OUTSIDE RECORDS SUMMARY | 2024-04-04 14:14 | XMS_ITS | Encounter Summary ---
[place] [address] Care Team Providers Care Pole Incisor Operator Name Role Phone Magdalena Acosta MD Primary Care Provider [phone] Encounter Details Date Type Department Care Team [...] 4:15 PM EDT Office Visit Dermatology at [place] [address] [facility] [place] [address] Marek Bonilla MD [address] TOD[address] A DERMATOLOGY [place], [place] [address] documented as of this encounter Visit Diagnoses Not on filedocumented in this encounter Care Teams Pole Incisor Operator Relationship Specialty Start Date End Date Magdalena Acosta MD [address] [place] [address] PCP - General Family Medicine 02/05/23 documented as of this encounter
--- OUTSIDE RECORDS SUMMARY | 2024-04-04 14:14 | XMS_ITS | Encounter Summary ---
Author Organization [facility] Address [address] [place] [address] Care Team Providers Care Plaster And Stucco Worker Name Role Phone Ashley Chavez Primary Care Provider [phone] Encounter Details Date Type Department Care Team (Late st Contact Info) Description 10/30/2022 Lab Requisition [facility] Pathology & Laboratory Medicine - [address] [address] Outr Resulting Lab, Provider Social History Tobacco [...] Stranded) <12.3 <30.0 IU/mL 11/03/2022 13:[address] [facility] Comment: ? Negative: ??<30.0 IU/mL ? Borderline Positive: ??30.0 - 75.0 IU/mL ? Positive: ??>75.0 IU/mL Results were obtained with the INOVA QUANTA Lite dsDNA SC DOMO assay on the [employer] DSX. Blood VENOUS BLOOD / Unknown 10/29/2022 14:00 EDT 10/30/2022 19:27 EDT Provider Outr Resulting Lab IMMUNOLOGY A ND SEROLOGY ORDERABLES Performing Organization Address [facility] de Phone Number [facility] [address] [place] [address] * SM (MORENO) ANTIBODY (10/29/2022 14:00 EDT) [facility] SM (Moreno) Antibody 18.5 <20.0 Units 11/03/2022 14:[address] [facility] Comment: ? Negative: <20.0 Units [...] ND SEROLOGY ORDERABLES Performing Organization Address [facility] de Phone Number [facility] [address] [place] [address] documented in this encounter Visit Diagnoses Not on filedocumented in this encounter Care Teams Plaster And Stucco Worker Relationship Specialty Start Date End Date Ashley Chavez ARNP [address] [place] [address] PCP - General 07/11/10 documented as of this encounter
--- OUTSIDE RECORDS SUMMARY | 2024-04-04 14:14 | XMS_ITS | Encounter Summary ---
[place] [address] Care Team Providers Care Blending Machine Operator Name Role Phone Magdalena Acosta [...] 4:15 PM EDT Office Visit Dermatology at [place] [address] [facility] [place] [address] Marek Bonilla MD [address], TOD[address] A DERMATOLOGY [place], [place] [address] documented as of this encounter Visit Diagnoses Not on filedocumented in this encounter Care Teams Blending Machine Operator Relationship Specialty Start Date End Date Magdalena Acosta MD [address] [place] [address] PCP - General Family Medicine 02/05/23 documented as of this encounter
--- OUTSIDE RECORDS SUMMARY | 2024-04-04 14:14 | XMS_ITS | Encounter Summary ---
[place] [address] Care Team Providers Care Procurement Director Name Role Phone Magdalena Acosta MD [...] 4:15 PM EDT Office Visit Dermatology at [place] [address] [place] [address] Marek Bonilla MD [address] TOD[address] A DERMATOLOGY [place], [place] [address] documented as of this encounter Visit Diagnoses Not on filedocumented in this encounter Care Teams Procurement Director Relationship Specialty Start Date End Date Magdalena Acosta MD [address] [place] [address] PCP - General Family Medicine 02/05/23 documented as of this encounter
--- OUTSIDE RECORDS SUMMARY | 2024-04-04 14:14 | XMS_ITS | Encounter Summary ---
Author Organization [facility] Address [address] [place] [address] Care Team Providers Care Safety Attendant Name Role Phone Scott Ashley WILLIAM Primary Care Provider [phone] Encounter Details Date Type Department Care Team (Late st Contact Info) Description 05/12/2019 Results Only [facility] [phone] Nadira Gregorio MD [address] [place] [phone] Social History Tobacco Use Types Packs/Day [...] ? 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 Accession #: ? [id number] ? : ? 1955 (Age: 63) ??F ? Collect Date: ? 05/12/2019 ? Location: ? [facility] ? Receive Date: ? 05/12/2019 ? Provider: NADIRA GREGORIO MD Copy to: WINTER HANKINS HIM ANALYST ? Final Pathologic Diagnosis: COLON, CECUM, POLYP, [...] (ASCP) 05/12/2019 6:08 PM End of Report [facility] 05/12/2019 16:0 3 EDT 05/12/2019 16:03 EDT Nadira Gregorio MD PATHOLOGY ORDERABLES [facility] [address] [place] [address] documented in this encounter Visit Diagnoses Not on filedocumented in this encounter Care Teams Safety Attendant Relationship Specialty Start Date End Date Ashley Chavez ARNP [address] [place] [address] PCP - General 07/11/10 documented as of this encounter
--- OUTSIDE RECORDS SUMMARY | 2024-04-04 14:14 | XMS_ITS | Encounter Summary ---
[place] [address] Care Team Providers Care Tool And Die Technician Name Role Phone Magdalena Acosta MD Primary Care Provider [phone] Reason for Visit * Reason Comments Annual Exam Encounter Details Date Type Department Care Team (Late st Contact Info) Description 02/22/2024 4:15 PM EDT Office Visit Dermatology at [address] [phone] Marek Bonilla MD [address] [facility] A DERMATOLOGY [place], [place] [id number] Seborrheic keratosis; Rosacea; Nevus Social History Tobacco [...] cutaneous and ocular 3. Previously told by financial administrator that she had corneal tears from her [...] 4:15 PM EDT Office Visit Dermatology at [place] [address] [place] [address] Marek Bonilla MD [address] [facility] [place] [address] documented as of this encounter Visit Diagnoses Diagnosis Seborrheic keratosis Other seborrheic keratosis Rosacea Nevus Benign neoplasm of skin, site unspecified documented in this encounter Care Teams Tool And Die Technician Relationship Specialty Start Date End Date Magdalena Acosta MD [address] [place] [address] PCP - General Family Medicine 02/05/23 documented as of this encounter
--- OUTSIDE RECORDS SUMMARY | 2024-04-04 14:14 | XMS_ITS | Encounter Summary ---
Author Organization [facility] Address [facility] [place] [address] Care Team Providers Care Start Up Specialist Name Role Phone Magdalena Acosta MD Primary Care Provider [phone] Encounter Details Date Type Department Care Team (Late st Contact Info) Description 07/29/2023 11:00 AM EST Office [place] [address] Magdalena Peralta MD [facility] [place] [address] Mixed connective tissue disease Social History Tobacco [...] 1:5120 speckled; VIC negative; Myositis panel with BONE DENSITY TECHNICIAN ab 149.1 (positive); Anti U1RNP IgG 119; [...] Viramontes. Magdalena Peralta MD Rheumatology Fellow Pager: [phone] * Kia Viramontes DO - 07/29/2023 11:00 AM EST ATTENDING ADDENDUM The patient's history was reviewed, and I interviewed and examined the patient with Dr. Peralta I agree with her summary, findings, and plan. documented in this encounter Plan of Treatment Upcoming Encounters Date Type Department Care Team (Late st Contact Info) Description 03/01/2025 4:15 PM EDT Office Visit Dermatology at [place] [address] [facility] [place] [address] Marek Bonilla MD [address] [facility] [place] [address] documented as of this encounter Results * [...] PFT FEV1/FVC Pre-BD Z-Score 0 COMPAS PFT CHJ97-59 Actual Pre-BD 2.41 % COMPAS PFT UUW64-52 Predicted 1.8 % COMPAS PFT TME40-92 Pre-BD % of Predicted 134 % COMPAS PFT FBS68-37 Pre-BD Z-Score 0.81 COMPAS PFT DLCO Hb [...] tissue documented in this encounter Care Teams Start Up Specialist Relationship Specialty Start Date End Date Magdalena Acosta MD [address] [place] [address] PCP - General Family Medicine 02/05/23 documented as of this encounter
--- OUTSIDE RECORDS SUMMARY | 2024-04-04 14:14 | XMS_ITS | Encounter Summary ---
Author Organization [facility] Address [address] [place] [address] Care Team Providers Care Satellite Installer Name Role Phone Ashley Chavez Primary Care Provider [phone] Encounter Details Date Type Department Care Team (Late st Contact Info) Description 04/29/2022 Lab Requisition [facility] Pathology & Laboratory Medicine - [address] [address] Outr Resulting Lab, Provider Social History Tobacco [...] Antibody 1.6 <20.0 Units 04/30/2022 12:23 EDT [facility] Comment: [...] A ND SEROLOGY ORDERABLES Performing Organization Address [facility] de Phone Number [facility] [address] [place] [address] * SSA ANTIBODIES BY DOMO (04/29/2022 7:51 EDT) SSA Antibody 1.5 <20.0 Units 04/30/2022 12:22 EDT [facility] Comment: [...] SEROLOGY ORDERABLES Performing Organization Address [facility] de Phone Number [facility] [address] [place] [address] documented in this encounter Visit Diagnoses Not on filedocumented in this encounter Care Teams Satellite Installer Relationship Specialty Start Date End Date Ashley Chavez ARNP [address] [place] [address] PCP - General 07/11/10 documented as of this encounter
--- OUTSIDE RECORDS SUMMARY | 2024-04-04 14:14 | XMS_ITS | Encounter Summary ---
Author Organization [facility] Address [address] [place] [address] Care Team Providers Care Digital Traffic Coordinator Name Role Phone Ashley Chavez Primary Care Provider [phone] Encounter Details Date Type Department Care Team (Late st Contact Info) Description 01/07/2023 Lab Requisition [facility] Pathology & Laboratory Medicine - [address] [address] Outr Resulting Lab, Provider Social History Tobacco [...] 56.2 55.8 - 66.1 % 01/08/2023 11:28 [facility] Albumin g/dL 3.9 3.6 - 5.2 g/dL 01/08/2023 11:28 [facility] Alpha-1 % 5.1(H) 2.9 - 4.9 % 01/08/2023 11:28 [facility] Alpha-1 g/dL 0.40 0.15 - 0.40 g/dL 01/08/2023 11:28 [facility] Alpha-2 % 7.0(L) 7.1 - 11.8 % 01/08/2023 11:28 [facility] Alpha-2 g/dL 0.50 0.50 - 1.00 g/dL 01/08/2023 11:28 [facility] Beta % 12.7 8.4 - 13.1 % 01/08/2023 11:28 [facility] Beta g/dL 0.90 0.60 - 1.20 g/dL 01/08/2023 11:28 [facility] Gamma % 19.0(H) 11.1 - 18.8 % 01/08/2023 11:28 [facility] Gamma g/dL 1.30 0.60 - 1.60 g/dL 01/08/2023 11:28 [facility] SPEP Comment No apparent monoclonal protein seen on serum electrophoresis 01/08/2023 11:28 [facility] Comment:See scanned/suppleme ntary report. Total Protein 6.9 6.3 - 8.2 g/dL 01/08/2023 11:28 [facility] Blood VENOUS BLOOD / Unknown 01/06/2023 14:40 EDT 01/07/2023 17:37 EDT Provider Outr Resulting Lab CHEMISTRY & BLOOD GAS ORDERABLES Performing Organization Address City/State/[facility] Co de Phone Number [facility] [address] [place] [address] * PROTEIN, TOTAL (01/06/2023 14:40 EDT) Blood VENOUS BLOOD / Unknown 01/06/2023 14:40 EDT 01/07/2023 17:37 EDT Provider Outr Resulting Lab CHEMISTRY & BLOOD GAS ORDERABLES Performing Organization Address [facility] Co de Phone Number [facility] [address] [place] [address] * (ABNORMAL) EXTRACTABLE NUCLEAR ANTIGEN PANEL (01/06/2023 14:40 EDT) SSA Antibody 1.3 <20.0 Units 01/08/2023 15:42 EDT [facility] Comment: ? Negative: [...] Antibody 1.5 <20.0 Units 01/08/2023 15:42 EDT [facility] Comment: ? Negative: [...] Antibody 15.3 <20.0 Units 01/08/2023 15:42 EDT [facility] Comment: ? Negative: <20.0 Units ? Weak Positive: 20.0 - 39.9 Units ? Moderate Positive: 40.0 - 80.0 Units ? Strong Positive: >80.0 Units Results were obtained with the BlitzLocalVA QUANTA Lite Sm DOMO. ??Sm values obtained with different manufacturers' assay methods may not be used interchangeably. ??The magnitude of the reported IgG levels cannot be correlated to an endpoint titer. SENIOR WIND TURBINE TECHNICIAN Antibody 149.1(H) <20.0 Units 01/08/2023 15:42 EDT [facility] Comment: ? Negative: <20.0 Units ? Weak Positive: 20.0 - 39.9 Units ? Moderate Positive: 40.0 - 80.0 Units ? Strong Positive: >80.0 Units Results were obtained with the Nearboxva Quanta Lite SENIOR WIND TURBINE TECHNICIAN DOMO. SENIOR WIND TURBINE TECHNICIAN values obtained with different heel seat sander's assay methods may not be used interchangeaby. ??The magnitude of the reported IgG levels cannot be be correlated to an endpoint titer. A positive result in the Quanta Lite SENIOR WIND TURBINE TECHNICIAN DOMO indicates the presence of antibodies reactive with the SENIOR WIND TURBINE TECHNICIAN/Sm complex but cannot distinguish between anti-Sm and anti-SENIOR WIND TURBINE TECHNICIAN activity. Blood VENOUS BLOOD / Unknown 01/06/2023 14:40 EDT 01/07/2023 17:37 EDT Provider Outr Resulting Lab IMMUNOLOGY A ND SEROLOGY ORDERABLES [facility] [address] [place] [address] * (ABNORMAL) ANTI NUCLEAR AB (FRANCISCO), IFA (01/06/2023 14:40 EDT) FRANCISCO Interpretation Positive(A) Negative 01/08/2023 15:22 EDT [facility] Comment: Result is [...] Pattern 1 1:5120 Speckled 01/08/2023 15:22 EDT [facility] Blood VENOUS BLOOD / Unknown 01/06/2023 14:40 EDT 01/07/2023 17:37 EDT Narrative [facility] - 01/08/2023 15:22 EDT Results were obtained with the INOVA NOVA Lite HEp-2 FRANCISCO Kit by indirect immunofluorescence. Provider Outr Resulting Lab IMMUNOLOGY A ND SEROLOGY ORDERABLES Performing Organization Address City/State/[facility] Co de Phone Number [facility] [address] [place] [address] documented in this encounter Visit Diagnoses Not on filedocumented in this encounter Care Teams Digital Traffic Coordinator Relationship Specialty Start Date End Date Ashley Chavez ARNP [address] [place] [address] PCP - General 07/11/10 documented as of this encounter
--- OUTSIDE RECORDS SUMMARY | 2024-04-04 14:14 | XMS_ITS | Encounter Summary ---
Author Organization [facility] Address [address] [place] [address] Care Team Providers Care Marine Air Ground Task Force Planners Name Role Phone Scott Ashley WILLIAM Primary Care Provider [phone] Encounter Details Date Type Department Care Team (Late st Contact Info) Description 11/10/2013 Results Only [facility] [phone] Jeni Laird, MEDIA AID [address] [place], [place] [id number] Social History Tobacco Use Types Packs/Day Years [...] ? 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 Accession #: ? [id number] : ? 1955 (Age: 58) ??F ?Collect Date: ? 11/10/2013 Location: ? [facility] ? Receive Date: ? 11/14/2013 Provider: ?JENI LAIRD MEDIA AID Copy to: ? Specimen/Source: ?Pap Test, Endocervix, [...] Report [facility] 11/10/2013 11/14/2013 Jeni Laird MEDIA AID PATHOLOGY ORDERAB LES Performing Organization Address City/State/[facility] Co de Phone Number [facility] [address] [place] [address] documented in this encounter Visit Diagnoses Not on filedocumented in this encounter Care Teams Marine Air Ground Task Force Planners Relationship Specialty Start Date End Date Ashley Chavez ARNP [address] [place] [address] PCP - General 07/11/10 documented as of this encounter
--- OUTSIDE RECORDS SUMMARY | 2024-04-04 14:14 | XMS_ITS | Encounter Summary ---
Author Organization [facility] Address [address] [place] [address] Care Team Providers Care Fur Stylist Name Role Phone Unavailable Primary Care Provider Unavailabl e Encounter Details Date Type Department Care Team (Late st Contact Info) Description 07/08/2010 Results Only [facility] Non-Invasive Cardiology - [facility] [address] [place] [address] Ashley Chavez, WILLIAM [address] [place] [address] Social History Tobacco Use Types Packs/Day Years [...] ? 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 Accession #: ? [id number] ? : ? 1955 (Age: 54) ??F [...] Ashley THOMAS PATHOLOGY ORDERABLES [facility] [address] [place] [address] documented in this encounter Visit Diagnoses Not on filedocumented in this encounter
--- OUTSIDE RECORDS SUMMARY | 2024-04-04 14:14 | XMS_ITS | Encounter Summary ---
[place] [address] Care Team Providers Care Gas Distribution And Emergency Clerk Name Role Phone Magdalena Acosta MD Primary Care Provider [phone] Encounter Details Date Type Department Care Team [...] EDT Office Visit Dermatology at [place] [address] [place] [place] [address] Marek Bonilla MD [address], TODD A DERMATOLOGY [place], [place] [phone] documented as of this encounter Visit Diagnoses Not on filedocumented in this encounter Care Teams Gas Distribution And Emergency Clerk Relationship Specialty Start Date End Date Magdalena Acosta MD [address] [place] [address] PCP - General Family Medicine 02/05/23 documented as of this encounter
--- OUTSIDE RECORDS SUMMARY | 2024-04-04 14:14 | XMS_ITS | Encounter Summary ---
[place] [address] Care Team Providers Care Air Cargo Specialist Supervisor Name Role Phone Magdalena Acosta MD Primary Care Provider [phone] Reason for Visit * Reason Onset Date Comments Pre Procedure Call 03/01/2024 DAPT hold for EGD and colo? Encounter Details Date Type Department Care Team (Late st Contact Info) Description 03/01/2024 Telephone Cardiology at [address] [phone] Cynthia Monsalve RN Pre Procedure Call (DAPT hold for EGD and colo?) Social History Tobacco Use Types Packs/Day Years Used Date Smoking Tobacco: Never Smokeless Tobacco: Never Alcohol Use Standard Drinks/Week Comments No 0 (1 standard drink = 0.6 oz pur e alcohol) none [facility] Inpatient Questions Answer Date Recorded Does Anyone [...] safe. Jay Message above left with Yenifer (hospice art therapist), who would be leaving this note in patient's chart for providers to schedule patient. No further questions or needs at this time. This nurse stated, note will be placed regarding this call in our chart for patient. Kezia Whitney RN, BSN Ambulatory Cardiology [facility], [facility] [phone] * Telephone Encounter - Cynthia Monsalve RN - 03/01/2024 2:09 PM EDT Nurse Veronica from [facility] called, requesting a hold on ASA and/or Plavix for the patient's anticipated EGD and colonoscopy. -Cynthia Monsalve RN documented in this encounter Plan of Treatment Upcoming Encounters Date Type Department Care Team (Late st Contact Info) Description 03/01/2025 4:15 PM EDT Office Visit Dermatology at [place] [address] [place] [phone] Marek Bonilla MD [address], [place] [address] documented as of this encounter Visit Diagnoses Not on filedocumented in this encounter Care Teams Air Cargo Specialist Supervisor Relationship Specialty Start Date End Date Magdalena Acosta MD [address] [place] [address] PCP - General Family Medicine 02/05/23 documented as of this encounter
--- OUTSIDE RECORDS SUMMARY | 2024-04-04 14:14 | XMS_ITS | Encounter Summary ---
Author Organization [facility] Address [address] [place] [address] Care Team Providers Care Matrix Drier Tender Name Role Phone Ashley Chavez Primary Care Provider [phone] Encounter Details Date Type Department Care Team (Latest Contact Info) Description 05/12/2019 13:18 EDT - 05/12/2019 23:59 EDT Hospital Encounter [address] [address] Unknown, Provider, Discharge Disposition: Home or Self [...] on filedocumented in this encounter Care Teams Matrix Drier Tender Relationship Specialty Start Date End Date Ashley Chavez ARNP [address] [place] [address] PCP - General 07/11/10 documented as of this encounter
--- OUTSIDE RECORDS SUMMARY | 2024-04-04 14:14 | XMS_ITS | Encounter Summary ---
Author Organization [facility] Address [address] [place] [address] Care Team Providers Care Ship Keeper Name Role Phone Unavailable Primary Care Provider Unavailabl e Encounter Details Date Type Department Care Team (Late st Contact Info) Description 06/29/2007 Results Only [facility] - Maple conversion [address] [place] [address] Sánchez Acevedo MD [address] [place] [address] Social History Tobacco Use Types Packs/Day Years [...] ? 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 Accession #: ? [id number] ? : ? 1955 (Age: 51) ??F [...] covered by a smooth white serosa. ??Three surgical sales representative sections of the gallbladder are submitted in one cassette. ??(Sriram Elias/[facility] End of Report [facility] 06/29/2007 06/29/2007 21: 23 EST Sánchez Acevedo MD PATHOLOGY ORDERABLE [facility] [address] [place] [address] documented in this encounter Visit Diagnoses Not on filedocumented in this encounter
--- OUTSIDE RECORDS SUMMARY | 2024-04-04 14:14 | XMS_ITS | Clinical Summary ---
Author Organization [facility] Address [address] [place] [address] Care Team Providers Care Client Customer Manager Name Role Phone Ashley Chavez Primary Care Provider [phone] Encounters Date Type Department Care Team Description 03/22/[address] [facility] Pathology & Laboratory [address] [address] Consuelo Guerrero, DO Diaphragmatic hernia without obstruction or gangrene; Anemia, unspecified 03/21/[address] [facility] Pathology & Laboratory [address] [address] Consuelo Guerrero, DO Encounter for other general examination 03/21/[address] [facility] Pathology & Laboratory [address] [address] Outr Resulting Lab, Provider from Last 3 [...] 13:00 EDT) LORY Negative 03/21/2024 22:31 EDT [facility] Blood VENOUS BLOOD / Unknown 03/21/2024 13:00 EDT 03/21/2024 21:51 EDT Consuelo Guerrero DO BLOOD BANK TESTS Performing Organization Address [facility] Co de Phone Number [facility] [address] [place] [address] * HAPTOGLOBIN (03/21/2024 13:00 EDT) Haptoglobin 183 32 - 197 mg/dL 03/22/2024 10:25 EDT [facility] Blood VENOUS BLOOD / Unknown 03/21/2024 13:00 EDT 03/21/2024 21:50 EDT Provider Outr Resulting Lab CHEMISTRY & BLOOD GAS ORDERABLES Performing Organization Address [facility]/ZIP Co de Phone Number [facility] [address] [place], [place] [address] * SURGICAL PATHOLOGY (03/21/2024 11:35 EDT) Note to Patient The following pathology results have been interpreted by your pathologist and may be available to you before your health provider has had the opportunity to review them. Please allow time for your provider to receive these results and explore management options, if applicable. 03/24/2024 10:36 EDT [facility] Final Diagnosis A. [...] - Deeper sections x3 examined. 03/24/2024 10:36 [facility] Attestation There was significant resident/fellow involvement in the diagnostic evaluation of this case. By the signature below, the attending physician certifies that they have personally conducted a gross and/or microscopic examination of the described specimens and rendered or confirmed the above diagnosis. 03/24/2024 10:36 [facility] at 1036 Clinical History Anemia, hiatal hernia, 38 cm aguayo diverticulosis 03/24/2024 10:36 [facility] Gross Description A. [...] Luis Torres 03/22/2024 9:36 03/24/2024 10:36 EDT [facility] Resident/Estuardo w: Luis Felipe Bragg DO 03/24/2024 10:36 EDT [facility] Performing Lab [facility] 10:36 EDT [facility] Scanned Images 03/24/2024 10:36 EDT [facility] Tissue POLYP OF [...] 8:19 EDT Consuelo Guerrero DO PATHOLOGY ORDERABLES [facility] [address] [place] [address] from Last 3 Months Care Teams Client Customer Manager Relationship Specialty Start Date End Date Ashley Chavez ARNP [address] [place] [address] PCP - General 07/11/10
--- OUTSIDE RECORDS SUMMARY | 2024-04-04 14:14 | XMS_ITS | Encounter Summary ---
Author Organization [facility] [place] [address] Care Team Providers Care Anesthesiology Crna Name Role Phone Magdalena Acosta MD Primary Care Provider [phone] Reason for Referral * Diagnostic Test (Routine) - New Request Specialty Diagnoses / Procedures Referred By Contac t Referred To Contact Cardiology Diagnoses S/P TAVR (transcatheter aortic valve replacement) Procedures Echocardiogram Transthoracic Antelmo Sharma MD [facility] [place] [address] [facility] [place] [address] Referral ID Status Reason Start Date Expiration Date Visits Requested Visits Authorized [id number] New Request Specialty Service Requested 12/16/2023 12/15/2024 1 1 Encounter Details Date Type Department Care Team (Late st Contact Info) Description 12/16/2023 Orders Only Cardiology at [address] [address] Antelmo Sharma MD [facility] [place] [address] S/P TAVR (transcatheter aortic valve [...] EDT Office Visit Dermatology at [place] [address] [facility] [place] [phone] Marek Bonilla MD [address], [place] [address] Scheduled Orders Name Type Priority Associated Diagnoses [...] replacement) documented in this encounter Care Teams Anesthesiology Crna Relationship Specialty Start Date End Date Magdalena Acosta MD [address] [place] [address] PCP - General Family Medicine 02/05/23 documented as of this encounter
--- OUTSIDE RECORDS SUMMARY | 2024-04-04 14:14 | XMS_ITS | Encounter Summary ---
Author Organization [facility] Address [address] [place] [address] Care Team Providers Care Field Support Engineer Name Role Phone Unavailable Primary Care Provider Unavailabl e Encounter Details Date Type Department Care Team (Late st Contact Info) Description 03/24/2007 Results Only [facility] Non-Invasive Cardiology - [facility] [address] [place], [place] [address] Ashley Chavez ARNP [address] [place] [address] Social History Tobacco Use Types Packs/Day Years [...] ? 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 Accession #: ? [id number] : ? 1955 (Age: 51) ??F ?Collect Date: ? 03/24/2007 Location: ? [facility] ? Receive Date: ? 03/28/2007 Provider: ?ASHLEY THOMAS Copy to: ? Specimen/Source: ?ThinPrep Pap Test, Endocervix, processed on [employer] ThinPrep Imaging System, with manual evaluation Last [...] Ashley THOMAS PATHOLOGY ORDERABLES [facility] [address] [place] [address] documented in this encounter Visit Diagnoses Not on filedocumented in this encounter
--- OUTSIDE RECORDS SUMMARY | 2024-04-04 14:14 | XMS_ITS | Encounter Summary ---
Author Organization [facility] Address [address] [place] [address] Care Team Providers Care Paper Rewinder Name Role Phone Unavailable Primary Care Provider Unavailabl e Encounter Details Date Type Department Care Team (Late st Contact Info) Description 04/20/2005 Results Only [facility] - Maple conversion [address] [place] [address] Ziggy Valiente MD [address] [place] [id number] Social History Tobacco Use Types Packs/Day Years [...] ? 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 Accession #: ? [id number] ? : ? 1955 (Age: 49) ??F [...] is entirely submitted in one cassette. ??(Arabella Santos)/[facility] End of Report [facility] 04/20/2005 04/21/2005 15: 04 EDT Ziggy Valiente MD PATHOLOGY ORDERABLES [facility] [address] [place] [address] documented in this encounter Visit Diagnoses Not on filedocumented in this encounter
--- OUTSIDE RECORDS SUMMARY | 2024-04-04 14:14 | XMS_ITS | Encounter Summary ---
Author Organization [facility] Address [address] [place] [address] Care Team Providers Care Chemical Sales Representative Name Role Phone Scott, Ashley WILLIAM Primary Care Provider [phone] Encounter Details Date Type Department Care Team (Late st Contact Info) Description 12/23/2016 Results Only [facility]- [facility] [phone] Deborah Quiroga, NATURAL GAS TREATING UNIT OPERATOR [address] [place] [phone] Social History Tobacco Use Types Packs/Day Years [...] ? 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 Accession #: ? [id number] ? : ? 1955 (Age: 61) ??F ?Collect Date: ? 12/23/2016 ? Location: ? [facility] ? Receive Date: ? 12/25/2016 ? Provider: DEBORAH QUIROGA LICENSING AND REGISTRATION DIRECTOR Copy to: ? Final Report SPECIMEN ADEQUACY ? Satisfactory for Evaluation - transformation zone component present GENERAL CATEGORIZATION ? Negative for Intraepithelial Lesion or Malignancy ?? Last Menstrual Period: years Specimen/Source: ??Pap Test, Cervix, ThinPrep Imaging System with manual evaluation Document reviewed and electronically signed by: ? Monica Cason [facility](AS[facility]) ? Report ??Date: 01/06/2017 09:11 HPV with Pap Test ? Date Ordered: ? 01/06/2017 ? Status: ?? Signed Out ?Date Complete: ? 01/07/2017 ? By: ??System Interface ? Date Reported: ? 01/07/2017 ? Interpretation RESULT: Negative for HPV. No E6 or E7 mRNA is detected from HPV types 16,18,31,33,35, 39,45,51,52,56,58, 59,66, and 68 by scanning supervisor mediated amplification. Comments Document reviewed and electronically signed by: ? System Interface ? Report date: 01/07/2017 By the signature above, the attending physician certifies that he/she has personally conducted a gross and/or microscopic examination of the described specimens and rendered or confirmed the above diagnosis. End of Report [facility] 12/23/2016 12/25/2016 Deborah Quiroga NATURAL GAS TREATING UNIT OPERATOR PATHOLOGY ORDERABLES [facility] [address] [place] [address] documented in this encounter Visit Diagnoses Not on filedocumented in this encounter Care Teams Chemical Sales Representative Relationship Specialty Start Date End Date Ashley Chavez ARNP [address] [place] [address] PCP - General 07/11/10 documented as of this encounter
--- OUTSIDE RECORDS SUMMARY | 2024-04-04 14:14 | XMS_ITS | Encounter Summary ---
Author Organization [facility] Address [address] [place] [address] Care Team Providers Care Silverware Washer Name Role Phone Ashley Chavez Primary Care Provider [phone] Encounter Details Date Type Department Care Team (Late st Contact Info) Description 12/17/2021 Lab Requisition [facility] Pathology & Laboratory Medicine - [address] [id number] Outr Resulting Lab, Provider Social History Tobacco [...] Lyme Ab Negative Negative 12/18/2021 10:37 EDT [facility] Blood VENOUS BLOOD / Unknown 12/17/2021 13:30 EDT 12/17/2021 21:32 EDT Provider Outr Resulting Lab IMMUNOLOGY A ND SEROLOGY ORDERABLES Performing Organization Address [facility] Co de Phone Number [facility] [address] [place] [address] * (ABNORMAL) ANTI NUCLEAR AB (FRANCISCO), IFA (12/17/2021 13:30 EDT) FRANCISCO Interpretation Positive(A) Negative 12/18/2021 16:06 EDT [facility] Comment: For titers [...] Pattern 1 1:1280 Speckled 12/18/2021 16:06 EDT [facility] Blood VENOUS BLOOD / Unknown 12/17/2021 13:30 EDT 12/17/2021 21:32 EDT Narrative [facility] - 12/18/2021 16:06 EDT Results were obtained with the INOVA NOVA Lite HEp-2 FRANCISCO Kit by indirect immunofluorescence. Provider Outr Resulting Lab IMMUNOLOGY A ND SEROLOGY ORDERABLES Performing Organization Address [facility] Co de Phone Number [facility] [address] [place] [address] documented in this encounter Visit Diagnoses Not on filedocumented in this encounter Care Teams Silverware Washer Relationship Specialty Start Date End Date Ashley Chavez ARNP [address] [place] [address] PCP - General 07/11/10 documented as of this encounter
--- OUTSIDE RECORDS SUMMARY | 2024-04-04 14:14 | XMS_ITS | Clinical Summary ---
Author Organization [facility] Address [facility] [place] [address] Care Team Providers Care In Flight Refueling Craftsman Name Role Phone Magdalena Acosta MD Primary Care Provider [phone] Allergies No known active allergies Medications Medication [...] Mild coronary artery disease by [facility] 11/09/2022 Heart failure with reduced e jection [...] Care Team Description 03/01/2024 Telephone Cardiology at [address] [address] Cynthia Monsalve RN Pre Procedure Call (DAPT hold for EGD and colo?) 02/22/2024 4:15 PM EDT Office Visit Dermatology at [address] [address] Marek Bonilla MD Seborrheic keratosis; [...] EDT Office Visit Dermatology at [place] [address] [facility] [place] [address] Marek Bonilla MD [address], [place] [address] Health Maintenance Due Date Last Done Comments [...] 06/05/2036 06/05/2021 Medical Devices Implanted Type Area Tong Carrier Device Identifier Shelf Expiration Date Model / Serial / Lot Valve,Aor,Pericar d,Magna,25mm ([id number]) - [id number] Implanted:Qty: 1 on 09/21/2016 by [facility] IMPLANTS N/A: Heart DO NOT USE [employer]) - [id number] 06/02/2020 [id number] / / [id number] Cable,Blnt,Ss,38i n ([id number]) - [id number] Implanted:Qty: 4 on 09/21/2016 by [facility]irio [facility] IMPLANTS N/A: Chest [employer] - [id number] 04/29/2021 [id number] / / [id number] Patch,Cav,Pericar d,2x5cm ([id number]) ([employer]) - [id number] Implanted:Qty: 1 on 09/21/2016 by Alirio [facility] IMPLANTS N/A: Heart DO NOT USE [employer] - [id number] 04/21/2018 [id number] / / [id number] Tavr-05/12/2023 Implanted:Qty: 1 on 05/12/2023 by Antelmo Sharma MD Other Heart [employer] - JAIME LI [id number] / [id number] / Description:JAIME [employer] NCES ABBY 3 ULTRA [...] EST) Glucose 93 65 - 199 mg/dL [facility] Comment:Diabetes: >=200 mg/d L plus symptoms Blood Urea Nitrogen 19(H) 8 - 18 mg/dL [facility] Creatinine 0.81 0.70 - 1.20 mg/dL [facility] Sodium 142 135 - 145 mmol/L [facility] Potassium 3.8 3.5 - 5.0 mmol/L [facility] Comment: Please note: ??Patients with WBC >100,000 may have falsely elevated Potassium levels. ??For accurate Potassium quantification in these patients send serum separator tube (gold top) for subsequent determinations. ??Contact the Clinical Chemistry Laboratory if there are any questions. Chloride 104 98 - 107 mmol/L [facility] Carbon Dioxide 26 22 - 31 mmol/L [facility] Anion Gap 12 5 - 15 mmol/L [facility] Calcium 10.2 8.5 - 10.5 mg/dL [facility] Protein, Total 7.4 6.1 - 8.0 g/dL [facility] Albumin 4.1 3.2 - 5.2 g/dL [facility] Aspartate Aminotransferase 24 0 - 30 unit/L [facility] Alanine Aminotransferase 12 0 - 30 unit/L [facility] Alkaline Phosphatase 93 35 - 105 unit/L [facility] Bilirubin, Total 0.3 0.2 - 1.3 mg/dL [facility] Est Glomerular Filtration Rate 80 >=60 mL/min/1. 73 m?? [facility] Comment: This patient's estimated GFR was [...] [facility] Co de Phone Number [facility] [address] * DXA Central Spine, Hip, and/or Whole Body (Generic) (06/05/2021 11:58 AM EDT) PT CLASS O RAD ADMITDTTM RAD PT RAD INFO [id number]^E VERETT^DEBORAH ^E RAD EXAM DESC XDXAC^DEXA SCAN [...] who have questions please contact the health respiratory care instructor that requested your imaging first. ? Electronically signed by: Rocael Villatoro MD, [facility] ([phone]), at 06/05/2021 12:00 PM Narrative 06/05/2021 12:00 [...] patients who have questions please contactthe health respiratory care instructor that requested your imaging first. Electronically signed by: Rocael Villatoro MD, [facility]([phone]), at 06/05/2021 12:00 PM Deborah Quiroga NECK BAND SETTER IMG DEXA ORDERABLES * Mammo Screening Cad Bilateral (06/05/2021 11:42 AM EDT) PT CLASS O DH RAD ADMITDTTM DH RAD PT DH RAD INFO [id number]^EV ERETT^DEBORAH^E DH RAD EXAM DESC MADDSC^SCREEN MAMMO [...] who have questions please contact the health respiratory care instructor that requested your imaging first. ? Electronically signed by: Rocael Villatoro MD, [facility] ([phone]), at 06/05/2021 1:27 PM Narrative 06/05/2021 1:27 [...] patients who have questions please contactthe health respiratory care instructor that requested your imaging first. Electronically signed by: Rocael Villatoro MD, [facility]([phone]), at 06/05/2021 1:27 PM Deborah Quiroga APRN [...] capacity to make decision: Yes Care Teams In Flight Refueling Craftsman Relationship Specialty Start Date End Date Magdalena Acosta MD [address] [place] [address] PCP - General Family Medicine 02/05/23
--- OUTSIDE RECORDS SUMMARY | 2024-04-04 14:14 | XMS_ITS | Referral Summary ---
Author Organization [facility] Address [address] [place] [address] Care Team Providers Care Timekeeper Name Role Phone Ashley Chavez Primary Care Provider Encounters Date Type Department Care Team Description 03/22/2024 Lab Requisition [facility] Pathology & Laboratory [address] [address] Consuelo Guerrero, DO Diaphragmatic hernia without obstruction or gangrene; Anemia, unspecified 03/21/2024 Lab Requisition [facility] Pathology & Laboratory [address] [address] Consuelo Guerrero DO Encounter for other general examination 03/21/2024 Lab Requisition [facility] Pathology & Laboratory [address] [address] Outr Resulting Lab, Provider from Last 3 [...] 13:00 EDT) LORY Negative 03/21/2024 22:31 EDT [facility] Blood VENOUS BLOOD / Unknown 03/21/2024 13:00 EDT 03/21/2024 21:51 EDT Consuelo Guerrero DO BLOOD BANK TESTS Performing Organization Address [facility] Co de Phone Number [facility] [address] [place] [address] * HAPTOGLOBIN (03/21/2024 13:00 EDT) Haptoglobin 183 32 - 197 mg/dL 03/22/2024 10:25 EDT [facility] Blood VENOUS BLOOD / Unknown 03/21/2024 13:00 EDT 03/21/2024 21:50 EDT Provider Outr Resulting Lab CHEMISTRY & BLOOD GAS ORDERABLES Performing Organization Address [facility] Co de Phone Number [facility] [address] [place] [address] * SURGICAL PATHOLOGY (03/21/2024 11:35 EDT) Note to Patient The following pathology results have been interpreted by your pathologist and may be available to you before your health provider has had the opportunity to review them. Please allow time for your provider to receive these results and explore management options, if applicable. 03/24/2024 10:36 EDT [facility] Final Diagnosis A. JEJUNUM, PROXIMAL, [...] - Deeper sections x3 examined. 03/24/2024 10:36 [facility] Attestation There was significant resident/fellow involvement in the diagnostic evaluation of this case. By the signature below, the attending physician certifies that they have personally conducted a gross and/or microscopic examination of the described specimens and rendered or confirmed the above diagnosis. 03/24/2024 10:36 [facility] at 1036 Clinical History Anemia, hiatal hernia, 38 cm aguayo diverticulosis 03/24/2024 10:36 [facility] Gross Description A. Received [...] Luis Torres 03/22/2024 9:36 03/24/2024 10:36 EDT [facility] Resident/Estuardo w: Luis Felipe Bragg DO 03/24/2024 10:36 EDT [facility] Performing Lab [facility] 10:36 EDT [facility] Scanned Images 03/24/2024 10:36 EDT [facility] Tissue POLYP OF COLON / [...] 8:19 EDT Consuelo Guerrero DO PATHOLOGY ORDERABLES [facility] [address] [place] [address] from Last 3 Months Care Teams Timekeeper Relationship Specialty Start Date End Date Ashley Chavez ARNP [address] [place] [address] PCP - General 07/11/10
--- OUTSIDE RECORDS SUMMARY | 2024-04-04 14:14 | XMS_ITS | Encounter Summary ---
Author Organization [facility] Address [address] [place] [address] Care Team Providers Care Sales Service Professional Name Role Phone Ashley Chavez Primary Care Provider [phone] Encounter Details Date Type Department Care Team (Late st Contact Info) Description 03/22/2024 Lab Requisition [facility] Pathology & Laboratory Medicine - [address] [address] Consuelo Guerrero, DO [address] [place], [place] [id number] Diaphragmatic hernia without obstruction or gangrene; Anemia, [...] explore management options, if applicable. 03/24/2024 10:36 [facility] Final Diagnosis A. JEJUNUM, [...] - Deeper sections x3 examined. 03/24/2024 10:36 [facility] Attestation There was significant resident/fellow involvement in the diagnostic evaluation of this case. By the signature below, the attending physician certifies that they have personally conducted a gross and/or microscopic examination of the described specimens and rendered or confirmed the above diagnosis. 03/24/2024 10:36 [facility] at 1036 Clinical History Anemia, hiatal hernia, 38 cm aguayo diverticulosis 03/24/2024 10:36 [facility] Gross Description A. Received [...] Luis Torres 03/22/2024 9:36 03/24/2024 10:36 EDT [facility] Resident/Estuardo w: Luis Felipe Bragg DO 03/24/2024 10:36 T [facility] Performing Lab [facility] 10:36 T [facility] Scanned Images 03/24/2024 10:36 T [facility] Tissue POLYP OF COLON [...] 8:19 EDT Consuelo Guerrero DO PATHOLOGY ORDERABLES [facility] [address] [place] [address] documented in this encounter Visit Diagnoses Diagnosis Diaphragmatic hernia without obstruction or gangrene Diaphragmatic hernia without mention of obstruction or gangrene Anemia, unspecified documented in this encounter Care Teams Sales Service Professional Relationship Specialty Start Date End Date Ashley Chavez ARNP [address] [place] [address] PCP - General 07/11/10 documented as of this encounter
--- OUTSIDE RECORDS SUMMARY | 2024-04-04 14:15 | XMS_ITS | Encounter Summary ---
[place] [address] Care Team Providers Care Hair Clipper Power Name Role Phone Magdalena Acosta MD Primary [...] EDT Office Visit Dermatology at [place] [address] [place] [address] Marek Bonilla MD [address], TODD A DERMATOLOGY [place], [place] [address] documented as of this encounter Visit Diagnoses Not on filedocumented in this encounter Care Teams Hair Clipper Power Relationship Specialty Start Date End Date Magdalena Acosta MD [address] [place] [address] PCP - General Family Medicine 02/05/23 documented as of this encounter
--- OUTSIDE RECORDS SUMMARY | 2024-04-04 14:15 | XMS_ITS | Encounter Summary ---
Author Organization [facility] [address] Care Team Providers Care Divemaster Name Role Phone Magdalena Acosta MD Primary Care Provider [phone] Encounter Details Date Type Department Care Team (Late st Contact Info) Description 07/08/2023 10:15 AM EST Office Visit Cardiology at [address] [phone] Severe aortic stenosis Social History Tobacco Use Types Packs/Day Years Used Date Smoking Tobacco: Never Smokeless Tobacco: Never Alcohol Use Standard Drinks/Week Comments No 0 (1 standard drink = 0.6 oz pur e alcohol) none [facility] Inpatient Questions Answer Date Recorded Does Anyone [...] 4:15 PM EDT Office Visit Dermatology at [place] [address] [place] [address] Marek Bonilla MD [address], [place] [address] documented as of this encounter Procedures Procedure [...] (Bezet) 449 ms MUSE SYSTEM Calculated P [place] 66 degrees MUSE SYSTEM Calculated R [place] 60 degrees MUSE SYSTEM Calculated T [place] 53 degrees MUSE SYSTEM INTERPRETATION Normal sinus rhythm Minimal voltage criteria for LVH, may be normal variant ( Sokolow-Orozco ) ST & T wave abnormality, consider lateral ischemia ??vs. repolarization abnormality from LVH Abnormal ECG When compared with ECG of 13-MAY-2023 09:22, Premature ventricular complexes are no longer Present Minimal criteria for Septal infarct are no longer Present Confirmed by Maxx Best ([id number]) on 07/09/2023 10:07:22 AM MUSE SYSTEM 07/08/2023 10:2 7 AM EST 07/09/2023 10:07 AM EST Brody Kaplan APRN ECG ORDERABLES MUSE SYSTEM documented in this encounter Visit Diagnoses Diagnosis Severe aortic stenosis Aortic valve disorders documented in this encounter Care Teams Divemaster Relationship Specialty Start Date End Date Magdalena Acosta MD [address] [place] [address] PCP - General Family Medicine 02/05/23 documented as of this encounter
--- OUTSIDE RECORDS SUMMARY | 2024-04-04 14:15 | XMS_ITS | Encounter Summary ---
Author Organization [facility] [place] [address] Care Team Providers Care Purchasing/Receiving Name Role Phone Magdalena Acosta MD Primary Care Provider [phone] Encounter Details Date Type Department Care Team (Late st Contact Info) Description 05/27/2023 Refill Cardiology at [address] [phone] Vero Marrero, RN Social History Tobacco Use Types Packs/Day Years Used Date Smoking Tobacco: Never Smokeless Tobacco: Never Alcohol Use Standard Drinks/Week Comments No 0 (1 standard drink = 0.6 oz pur e alcohol) none [facility] Inpatient Questions Answer Date Recorded Does [...] PM EDT TC to Nurse Sosa at [facility] to relay response from Jay Maza [...] after that 75mg once daily. Jay Marrero building and construction manager Clinic at [facility] [address] * Telephone Encounter - Vero Marrero RN - 05/27/2023 1:46 PM EDT VM received from triage nurse Sosa at [facility] stating patient was seen today by [...] possible. Vero Marrero RN Cardiology Clinic at [facility] [address] documented in this encounter Plan of Treatment Upcoming Encounters Date Type Department Care Team (Late st Contact Info) Description 03/01/2025 4:15 PM EDT Office Visit Dermatology at [place] [address] [place] [phone] Marek Bonilla MD [address], [place] [address] documented as of this encounter Visit Diagnoses Diagnosis Aortic valve stenosis, etiology of cardiac valve disease unspecified documented in this encounter Care Teams Purchasing/Receiving Relationship Specialty Start Date End Date Magdalena Acosta MD [address] [place] [address] PCP - General Family Medicine 02/05/23 documented as of this encounter
--- OUTSIDE RECORDS SUMMARY | 2024-04-04 14:15 | XMS_ITS | Encounter Summary ---
[place] [address] Care Team Providers Care Director Of Elementary Education Name Role Phone Magdalena Acosta MD Primary Care Provider [phone] Encounter Details Date Type Department Care Team (Latest Contact Info) Description 07/08/2023 12:35 PM EST Laboratory Appointment Lab [address] [place] [address] S/P TAVR (transcatheter aortic valve [...] 4:15 PM EDT Office Visit Dermatology at [place] [address] [place] [phone] Marek Bonilla MD [address], [place] [address] (work) documented as of this encounter Procedures [...] 11:56 AM EST) Neutrophil % 73.2 % [facility] Neutrophil Absolute 3.40 1.70 - 6.10 x10(3)/mc L [facility] Lymph % 16.1 % [facility] Lymphocytes Abs 0.8(L) 0.9 - 3.2 x10(3)/mc L [facility] Monocyte % 9.7 % [facility] Monocyte Abs 0.4 0.3 - 0.9 x10(3)/mc L [facility] Eos % 0.4 % [facility] Eosinophils Abs 0.0 0.0 - 0.4 x10(3)/mc L [facility] Basophil % 0.4 % [facility] Baso Absolute 0.0 0.0 - 0.1 x10(3)/mc L [facility] Immature Gran % 0.20 % [facility] Comment: Immature granulocytes(IG's)percentage and absolute count will include metamyelocytes, myelocytes, and promyelocytes. Blood smears from CBCs yielding IG's will be scanned manually for concordance. If this scan disagrees with the automated IG or if promyelocytes are noted, a manual differential will be performed. Immature Gran Absolute 0.01 0.00 - 0.04 x10(3)/mc L [facility] Blood 07/08/2023 11:5 6 AM EST 07/08/2023 12:02 PM EST Narrative Resulting Agency Comment Spec In Lab Minh TOBAR HEMATOLOGY ORDERABLE S [facility] [place] [address] * (ABNORMAL) Hemogram (07/08/2023 11:56 AM EST) White Blood Cell 4.6 4.0 - 9.5 x10(3)/mc L [facility] Red Blood Cell 3.34(L) 4.00 - 5.21 x10(6)/mc L [facility] Hemoglobin 11.0(L) 11.7 - 15.5 g/dL [facility] Hematocrit 33.2(L) 35.7 - 45.8 % [facility] Mean Cell Volume 99.4(H) 82.6 - 94.4 fL [facility] Mean Cell Hemoglobin 32.9(H) 27.1 - 32.0 pg [facility] Mean Cell Hemoglobin Concentration 33.1 31.7 - 35.0 g/dL [facility] Platelet 166 145 - 357 x10(3)/mc L [facility] RDW Standard Deviation 47.1(H) 37.0 - 46.0 fL [facility] RDW coefficient of variation 13.0 11.5 - 14.1 % [facility] Mean Platelet Volume 9.0 7.6 - 12.9 fL [facility] NRBC% auto 0.0 % [facility] NRBC Absolute 0.000 0.000 - 0.000 x10(3)/mc L [facility] Blood 07/08/2023 11:5 6 AM EST 07/08/2023 12:02 PM EST Narrative Resulting Agency Comment Spec In Lab Minh TOBAR HEMATOLOGY ORDERABLE S [facility] [place] [address] * (ABNORMAL) Comprehensive metabolic panel (non-fasting) (07/08/2023 11:56 AM EST) Glucose 93 65 - 199 mg/dL [facility] Comment:Diabetes: >=200 mg/d L plus symptoms Blood Urea Nitrogen 19(H) 8 - 18 mg/dL [facility] Creatinine 0.81 0.70 - 1.20 mg/dL [facility] Sodium 142 135 - 145 mmol/L [facility] Potassium 3.8 3.5 - 5.0 mmol/L [facility] Comment: Please note: ??Patients with WBC >100,000 may have falsely elevated Potassium levels. ??For accurate Potassium quantification in these patients send serum separator tube (gold top) for subsequent determinations. ??Contact the Clinical Chemistry Laboratory if there are any questions. Chloride 104 98 - 107 mmol/L [facility] Carbon Dioxide 26 22 - 31 mmol/L [facility] Anion Gap 12 5 - 15 mmol/L [facility] Calcium 10.2 8.5 - 10.5 mg/dL [facility] Protein, Total 7.4 6.1 - 8.0 g/dL [facility] Albumin 4.1 3.2 - 5.2 g/dL [facility] Aspartate Aminotransferase 24 0 - 30 unit/L [facility] Alanine Aminotransferase 12 0 - 30 unit/L [facility] Alkaline Phosphatase 93 35 - 105 unit/L [facility] Bilirubin, Total 0.3 0.2 - 1.3 mg/dL [facility] Est Glomerular Filtration Rate 80 >=60 mL/min/1. 73 m?? [facility] Comment: This patient's estimated GFR [...] Lab Alirio Esparza MD CHEMISTRY ORDERABLE S [facility] [place] [address] documented in this encounter Visit Diagnoses Diagnosis S/P TAVR (transcatheter aortic valve replacement) Severe aortic stenosis Aortic valve disorders documented in this encounter Care Teams Director Of Elementary Education Relationship Specialty Start Date End Date Magdalena Acosta MD [address] [place] [address] PCP - General Family Medicine 02/05/23 documented as of this encounter
--- OUTSIDE RECORDS SUMMARY | 2024-04-04 14:15 | XMS_ITS | Encounter Summary ---
Author Organization [facility] [place] [address] Care Team Providers Care Neon Sign Installer Name Role Phone Magdalena Acosta MD Primary Care Provider [phone] Reason for Referral * Diagnostic Test (Routine) - Closed Specialty Diagnoses / Procedures Referred By Contac t Referred To Contact Cardiology Diagnoses S/P TAVR (transcatheter aortic valve replacement) Procedures Echocardiogram Transthoracic Vinod Juárez PA [facility] [place] [address] [facility] [place] [address] Referral ID Status Reason Start Date Expiration Date V isits Requested Visits Authorized [id number] Closed Specialty Service Requested 05/22/2023 05/21/2024 1 1 Reason for Visit * Diagnostic Test (Routine) - Closed Specialty Diagnoses / Procedures Referred By Contac t Referred To Contact Cardiology Diagnoses S/P TAVR (transcatheter aortic valve replacement) Procedures Echocardiogram Transthoracic Vinod Juárez PA [facility] [place] [address] [facility] [place] [address] Referral ID Status Reason Start Date Expiration Date V isits Requested Visits Authorized [id number] Closed Specialty Service Requested 05/22/2023 05/21/2024 1 1 Encounter Details Date Type Department Care Team (Latest Contact Info) Description 07/08/2023 10:19 AM EST - 07/08/2023 11:59 PM EST Hospital Encounter Non-Invasive [place] [address] Alirio Esparza MD S/P TAVR (transcatheter aortic [...] Verio test strips Strip USE DAILY 01/03/2022 PlaceFullTouch Delica Plus Lancet 33 gauge Misc USE [...] EDT Office Visit Dermatology at [place] [address] [place] [id number] Marek Bonilla MD [address], [address] [place] [address] documented as of this encounter Procedures Procedure [...] EST Narrative 07/08/2023 12:26 PM EST 1 [place] [address] ? Echocardiogram Report Name: ONESIMO THACKER ?Study Date: 07/08/2023 10:31 AMBP: 118/60 mmHg ? Patient Location: : 1955 ? Height: 155 cm ? Account: [id number] Age: 67 yrs ? Weight: 74 kg Gender: Female ?BSA: 1.7 m2 Ordering Physician: ALIRIO ESPARZA Referring Physician: VINOD JUÁREZ Performed By: Felicia Norris RDCS Reason For Study: S/P TAVR Exam Location: [facility]. Interpretation Summary Left ventricular systolic function [...] no significant change (post-procedure). Procedure Limited - 77034. Doppler - 09516. Color Doppler - 39040. Satisfactory quality. This study is limited because [...] Note Lee Kincaid MD - 07/08/2023 1 [place] [address] Echocardiogram Report Name: ANDREWONESIMO Study Date: 0:31 AMBP: 118/60 mmHg Patient Location: : 1955 Height: 155 cm Account: [id number] Age: 67 yrs Weight: 74 kg Gender: Female BSA: 1.7 m2 Ordering Physician: ALIRIO ESPARZA Referring Physician: VINOD JUÁREZ Performed By: Felicia Norris RDCS Reason For Study: S/P TAVR Exam Location: [facility]. Interpretation Summary Left ventricular systolic function [...] is nosignificant change (post-procedure). Procedure Limited - 65448. Doppler - 15238. Color Doppler - 99134. Satisfactoryquality. This study is limited because of [...] replacement) documented in this encounter Care Teams Neon Sign Installer Relationship Specialty Start Date End Date Magdalena Acosta MD [address] [place] [address] PCP - General Family Medicine 02/05/23 documented as of this encounter
--- OUTSIDE RECORDS SUMMARY | 2024-04-04 14:15 | XMS_ITS | Encounter Summary ---
[place] [address] Care Team Providers Care Auger Mill Operator Name Role Phone Magdalena Acosta MD Primary Care Provider [phone] Encounter Details Date Type Department Care Team [...] EDT Office Visit Dermatology at [place] [address] [place] [address] Marek Bonilla MD [address], [place] A DERMATOLOGY [place], [place] [id number] documented as of this encounter Visit Diagnoses Not on filedocumented in this encounter Care Teams Auger Mill Operator Relationship Specialty Start Date End Date Magdalena Acosta MD [address] [place] [address] PCP - General Family Medicine 02/05/23 documented as of this encounter
--- OUTSIDE RECORDS SUMMARY | 2024-04-04 14:15 | XMS_ITS | Encounter Summary ---
Author Organization [facility] [address] Care Team Providers Care Linen Room Custodian Name Role Phone Magdalena Acosta MD Primary Care Provider [phone] Reason for Visit * Reason Comments Coronary Artery Disease Hypertension Aortic Stenosis Encounter Details Date Type Department Care Team (Latest Contact Info) Description 07/20/2023 4:40 PM EST TH Visit (TeleHealth) Cardiology at [address] [address] Jay Maza PA [facility] [place] [address] HFrEF (heart failure with reduced ejection fraction); [...] Maza PA - 07/20/2023 4:40 PM EST [facility] Interventional Cardiology CARDIOLOGY [...] lieu of an in person office visit. Multimedia Journalist: Antelmo Sharma MD ([facility]) Maria Luz Mejia MD ([facility] cards) Problem List: : prior [...] fraction I35.0 Mild coronary artery disease by [facility] 11/09/2022 I25.10 Heart failure with [...] notable for coronary artery protection given low obiga-fg-yhrhfwmk distance. There was no obstruction post Valve deployment, but the stent could not be removed safely, so it was deployed. 4.0 mm x 30mm in left main. She was loaded on brilinta aka ticagrelor. Immediately post valve deployment, chest compressions to circulate central epinephrine which was administered given her hypotension, low LVEF, and low cardiac reserve. Next, the patient was transferred to [facility] for pressor and inotropic support. Pressors weaned overnight. Cardiac indices by thermodilution remained greater than 3 with continued Milrinone 0.125 mcg/kg/min. EKG the next day with NSR with stable MS/QRS intervals. Hemoglobin 7.8 [...] arms and wrists. Successful right transfemoral TAVR Cnain-vn-Fokzr with a 23 mm Lai 3 THV. [...] leads Confirmed by MD Harshil, Haris Bell ([id number]) on 05/10/2023 8:11:46 AM Cardiac Cath 11/09/2022 [...] in chart review and direct patient contact. [id number] 0-5min [id number] 6-10min [id number] 11-15min [id number] 16-20min x [id number] 21-30min [id number] 31-40min [id number] 40+ min Jay Maza PA-C Interventional Cardiology [facility] Pager [phone] documented in this encounter Plan of Treatment Upcoming Encounters Date Type Department Care Team (Late st Contact Info) Description 03/01/2025 4:15 PM EDT Office Visit Dermatology at [place] [address] [place] [address] Marek Bonilla MD [address] [place] [address] documented as of this encounter Visit Diagnoses Diagnosis HFrEF (heart failure with reduced ejection fraction) Hypertension, unspecified type Aortic valve stenosis, etiology of cardiac valve disease unspecified documented in this encounter Care Teams Linen Room Custodian Relationship Specialty Start Date End Date Magdalena Acosta MD [address] [place] [address] PCP - General Family Medicine 02/05/23 documented as of this encounter
--- OUTSIDE RECORDS SUMMARY | 2024-04-04 14:16 | XMS_ITS | Encounter Summary ---
Author Organization [facility] Address [facility] [place] [address] Care Team Providers Care Pin Game Machine Inspector Name Role Phone Magdalena Acosta MD Primary Care Provider [phone] Reason for Referral * Diagnostic Test (Routine) - Closed Specialty Diagnoses / Procedures Referred By Contac t Referred To Contact Cardiology Diagnoses S/P TAVR (transcatheter aortic valve replacement) Procedures Echocardiogram Transthoracic Vinod Juárez PA [facility] [place] [place] [address] [facility] [place] [address] Referral ID Status Reason Start Date Expiration Date V isits Requested Visits Authorized [id number] Closed Specialty Service Requested 05/22/2023 05/21/2024 1 1 * Home Health Care (Routine) - Closed Specialty Diagnoses / Procedures Referred By Contac t Referred To Contact Diagnoses S/P TAVR (transcatheter aortic valve replacement) Alirio Hudson MD [facility] CARDIOTHORACIC SURGERY [address] [facility] & [address] [place] [address] Referral ID Status Reason Start Date Expiration Date V isits Requested Visits Authorized [id number] Closed Consult, Test & Treat 05/22/2023 11/18/2023 999 999 * Consultation (Routine) - Closed Specialty Diagnoses / Procedures Referred By Crispin maxwell Referred To Contact Cardiology Diagnoses S/P TAVR (transcatheter aortic valve replacement) Alirio Hudson MD [facility] [place] [address] Cardiac Rehab, [address] [place] [address] Referral ID Status Reason Start Date Expiration Date V isits Requested Visits Authorized [id number] Closed Consult, Test & Treat 05/22/2023 11/18/2023 36 36 * Diagnostic Test (Routine) - Closed Specialty Diagnoses / Procedures Referred By Crispin maxwell Referred To Contact Cardiology Diagnoses Aortic valve stenosis, etiology of cardiac valve disease unspecified Procedures Echocardiogram Transthoracic Transesophageal Echocardiogram (YUSRA) Radha Hollins MD [facility] [place] [address] [facility] [place] [address] Referral ID Status Reason Start Date Expiration Date V isits Requested Visits Authorized [id number] Closed Specialty Service Requested 05/11/2023 05/10/2024 1 1 Reason for Visit * Auth/Cert (Routine) Specialty Diagnoses / Procedures Referred By Crispin maxwell Referred To Contact Diagnoses Symptomatic severe aortic stenosis with low ejection fraction NSTEMI, CHF Enrique Chua MD [facility] [place] [address] [facility] Referral ID Status Reason Start Date Expiration Date Visits Re quested Visits Authorized [id number] 1 1 Encounter Details Date Type Department Care Team (Latest Contact Info) Description 05/08/2023 9:14 AM EDT - 05/22/2023 10:46 AM EDT Hospital Encounter Heart and Vascular Unit Level 4 [place] [address] Enrique Chua MD [facility] [address] Juan Luis Gonzalez MD [facility] [address] Radha Hollins MD [facility] [address] Alirio Hudson MD S/P TAVR (transcatheter aortic valve replacement) (Primary Dx); Aortic valve stenosis, etiology of cardiac valve disease unspecified; Symptomatic severe aortic stenosis with low ejection fraction; Heart failure with reduced ejection fraction due to heart valve disease; Mild coronary artery disease by [facility] 11/09/2022; Mixed connective tissue disease; Neck [...] Patient Age: 67 y.o. Birthdate: 1955 Language: Romanian Race: White Ethnicity: Not nor Admit Date: 05/08/2023 Discharge Date: 05/22/2023 Attending Physician: Alirio Hudson MD Follow-up Recommendations for Providers: Please continue routine management of cardiovascular risk factors including blood pressure, lipids,glucose, etc. Please note any medication changes. Patient to follow up with PCP, Magdalena Acosta MD, or Primary Outside Solar Sales Consultant, Avis Mejia MD, in ~ 7-10 days. Patient to follow up with Screw Supervisor, Dr. Antelmo Sharma, in 2 weeks with an EKG, Echo, CBC, and CMP. Patient to follow up with Nephrology, their office to arrange. Pauk-Ycqkau-bp interval: After initial 30 day follow-up appointment , all TAVR patients will follow-up again in one year with an echo. 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 Secondary Diagnoses: Active Hospital Problems Diagnosis S/P TAVR (transcatheter aortic valve replacement) Cardiogenic shock Symptomatic severe aortic stenosis with low ejection fraction Mild coronary artery disease by [facility] 11/09/2022 Heart failure with reduced ejection [...] Tube Placement Right 05/18/2023 Laure Ricks PA [facility] INTERVENTIONL RAD PRG CATH PLMT LEFT HEART CATH & ARTS W/INJ & ANGIO IMG S&I N/A 11/09/2022 CORONARY ANGIOGRAPHY; W [facility],POSSIBLE PCI (WRVU 5.6) performed by Mario Alberto Escobedo MD at [facility] CATH LABS PRG COMBINED RIGHT & LEFT HEART CATH W/INJ L VENTRICULOGRAPHY, IMG S&I N/A 05/12/2023 COMBINED RIGHT & LEFT HEART CATH,INC INJ FOR L VENTRICULOGRAPHY (WRVU 5.99) performed by Antelmo Sharma MD at [facility] CATH LABS PRO AORTOPLAS FOR SUPRAVALV STEN N/A 09/21/2016 @AORTOPLASTY FOR SUPRAVALVULAR STENOSIS (WRVU 29.33) performed by Alirio Hudson MD at [facility] MAIN OR PRO REPLACE AORTIC VALVE (TAVR/FEDERICO)PERC FEMORAL ARTERY APPROACH 05/12/2023 @TRANSCATHETER AORTIC VALVE REPLACEMENT (TAVR), PERCUTANEOUS FEMORAL (WRVU 22.47) performed by Alirio Hudson MD at [facility] CATH LABS PRO REPLACEMENT PROSTHETIC AORTIC VALVE OPEN W CARDIOPULMONARY BYPASS HOMOGRF/STENT N/A 09/21/2016 @REPLACE AORTIC VALVE, OPEN, W\CPB, W\PROSTHETIC VALVE (WRVU 41.32) performed by Alirio Hudson MD at [facility] MAIN OR Prior To Admission Medications [...] Major Procedures/Operations: 05/12/23: Successful right transfemoral TAVR Xhfry-ty-Efwhz with a 23 mm Lai 3 THV. Left coronary protection with left main MINNA. Hospital Course: #Severe prosthetic s/p valve in valve TF TAVR #Low coronary heights s/p left main stent for coronary protection #Type 2 NSTEMI, present on arrival, resolved #Acute decompensated HFrEF #Cardiogenic shock #EVANS / Cardiorenal syndrome Purnima Thacker was admitted to [facility] on 05/08/2023 via the Cardiology Service [...] TAVR and she was brought to the label stamper the following morning where Drs. Alirio Hudson [...] if you have questions. Please call your Screw Supervisor's office if you have any discharge or drainage from your procedural sites. Your Screw Supervisor, Dr. Antelmo Sharma and/or the Commercial Relief Driver may be reached at . Antibiotic prophylaxis: You will need to take antibiotics prior to many invasive tests and treatments, such as dental cleaning, which should be done every 6 months. Your primary care physician or your dentist can prescribe this medication. Please refer to the card with the [employer] Guidelines for more information. You have been provided with a copy of this card. Please refer to the [employer] Guidelines for more information. Good [...] should resume a low fat, low cholesterol, [employer] Diet Driving: No restrictions. Shower/Bath: You may shower daily. No baths, soaking, or swimming for the first week. Wound care: Wash the sites daily with soap and rinse well, pat dry. Assess for any signs of infection such as increased redness, pain, warmth or drainage. Please call your potato loader's office if you have any discharge or drainage from your procedural sites. If there is a lot of swelling, apply mamta wraps during the day and remove at bedtime. Elevate your legs when you are sitting. Home oxygen therapy: N/A Follow up appointments: Please schedule a follow-up appointment with your PCP, Magdalena Acosta MD, or Primary Outside Solar Sales Consultant in ~ 7-10 days. You have a follow-up appointment with your Screw Supervisor, Dr. Antelmo Sharma, in 2 weeks with an EKG, Echo, and labs prior to your appointment. You will need follow-up with Nephrology, their office will arrange. Fvup-Grnfeb-mr interval: After initial 30 day follow-up appointment , all TAVR patients will follow-up again in one year with an echo. Cardiac Rehabilitation: Purnima Thacker was seen today regarding participation in the outpatient Phase 2 Cardiac Rehabilitation at [facility]. The patient agrees to a referral to this program. The referral will be sent at discharge and the patient should be contacted by the Program within 1- 2 weeks from discharge. Future Appointments and Orders Future Appointments and Orders Future Appointments Provider Department Dept Phone 07/29/2023 11:00 AM Magdalena Peralta MD Rheumatology at [place] Arrive at: [employer] [facility] [address] [phone] 02/11/2024 2:00 PM Marek Bonilla MD Dermatology at [place] Arrive at: [facility] [address] [phone] Future Orders Complete By Expires Type and Screen Future Surgery, [facility] SAME DAY PROGRAM ONLY) [EAX1969 Custom] 05/11/2023 Process Instructions: This test is intended ONLY for patients with upcoming surgery for testing prior to the day of surgery obtained through the same day program (4V or SDP). For ALL OTHER PATIENTS, order a Type and Screen (FKF596) This order includes the physician order for an ABO Recheck if requested by the Blood Bank. Scheduling Instructions: Comments: Questions: Date of surgery: CBC (with Diff) [VKV046 Custom] 06/05/2023 12/05/2023 Process Instructions: INCLUDES: WBC, RBC, Hgb, Hct, Platelets, RBC Indices and Differential Scheduling Instructions: Comments: Questions: Comprehensive metabolic panel (non-fasting) [LAB17 Custom] 06/05/2023 08/20/2023 Process Instructions: INCLUDES: Calcium, T Protein, Albumin, AST, ALT, Alk Phos, T Bili, BUN, Creat, GFR, Glucose, Lytes. Scheduling Instructions: Comments: Questions: Echocardiogram Transthoracic [39557 CPT(R)] 06/05/2023 12/05/2023 Process Instructions: Scheduling Instructions: Questions: Where will study be performed?: [facility] Does the patient have Congenital Heart Disease?: Does patient require sedation?: GA rationale: EKG 12 Lead [04849 CPT(R)] 06/05/2023 12/05/2023 Process Instructions: Scheduling Instructions: Questions: Which location will this be performed?: [place] Is a rhythm strip needed?: No [facility] Devices [EQ161 Custom] As directed Process Instructions: Scheduling Instructions: Questions: Device Needed: WALKER (E0143) Patient Height (cm): 154.9 cm (5' 0.98) Patient Weight: 75.4 kg (166 lb 3.2 oz) Diagnosis: Unsteady gait when walking Referral to Cardiac Rehab [WEY152 Custom] As directed Process Instructions: If no progress note charted, please enter Clinical details in comments. Scheduling Instructions: Questions: My question or request is: s/p TAVR. Cardiac rehab at [facility]. Referral to Home Health [REF34 Custom] As directed Process Instructions: If no progress note charted, please enter Clinical details in comments. Scheduling Instructions: Comments: DOCUMENTATION FOR VNA SERVICES PATIENT'S LOCATION: Purnima Thacker [address] [place] [phone] (home) Meteorologist Liaison's Name: Self and brother Raymond In discussion with the attending physician, it is certified that this patient is under his/her careand that MD, or an RELATIONS MGR, PATIENT ACCESS REPRESENTATIVE, or PA who is working directly with him/her, had a yaar-um-cjrf encounter that meets the physician pomb-wa-dlyo encounter requirements with this patient on 05/22/2023. [...] for managing ADLs. HOME HEALTH CARE AGENCY: [facility]. [address] [place] [address] PHONE: [phone] FAX: [phone] Start of care: Ideally 24-48 hours after [...] Magdalena Acosta MD [address] / [facility] [address] All VNA agencies which cover the area of patient's residence have been reviewed, either verbally joao writing, and patient has chosen the home health care agency noted. Questions: Disciplines Requested: Physical Therapy Occupational Therapy Discharge References/Attachments None Arrangements for VNA/home care: As above. (delete if no VNA) Signed: EKATERINA NAVARRETE [facility] Section of Cardiac Surgery Date: 05/22/2023 CC: Magdalena Acosta MD [place] River[place]ario Alberto MD [address] [place] [address] documented in this encounter Discharge Instructions * Patient Instructions* Vinod Juárez PA - 05/22/2023 9:32 AM EDT TAVR Discharge Instructions: Call your doctor if: You have a fever of greater than 101 degrees, shaking chills, if you develop redness or drainage from your procedure sites, or if you have questions. Please call your Screw Supervisor's office if you have any discharge or drainage from your procedural sites. Your Screw Supervisor, Dr. Antelmo Sharma and/or the Commercial Relief Driver may be reached at . Antibiotic prophylaxis: You will need to take antibiotics prior to many invasive tests and treatments, such as dental cleaning, which should be done every 6 months. Your primary care physician or your dentist can prescribe this medication. Please refer to the card with the [employer] Guidelines for more information. You have been provided with a copy of this card. Please refer to the [employer] Guidelines for more information. Good [...] should resume a low fat, low cholesterol, [employer] Diet Driving: No restrictions. Shower/Bath: You may shower daily. No baths, soaking, or swimming for the first week. Wound care: Wash the sites daily with soap and rinse well, pat dry. Assess for any signs of infection such as increased redness, pain, warmth or drainage. Please call your potato loader's office if you have any discharge or drainage from your procedural sites. If there is a lot of swelling, apply mamta wraps during the day and remove at bedtime. Elevate your legs when you are sitting. Home oxygen therapy: N/A Follow up appointments: Please schedule a follow-up appointment with your PCP, Magdalena Acosta MD, or Primary Outside Solar Sales Consultant in ~ 7-10 days. You have a follow-up appointment with your Screw Supervisor, Dr. Antelmo Sharma, in 2 weeks with an EKG, Echo, and labs prior to your appointment. You will need follow-up with Nephrology, their office will arrange. Vvff-Mlrgke-fp interval: After initial 30 day follow-up appointment , all TAVR patients will follow-up again in one year with an echo. Cardiac Rehabilitation: Purnima Thacker was seen today regarding participation in the outpatient Phase 2 Cardiac Rehabilitation at [facility]. The patient agrees to [...] ins ( tef) Haven Ba, PT Pager: [phone] Physical Therapy Inpatient Rehabilitation Department * Nico [...] 0600 and on the weekends please page [phone]. * Joyr Paniagua - 05/20/2023 3:52 PM EDT Nutrition [...] vomiting Last Bowel Movement: 05/20/23 Jory Paniagua Bead Worker Sewing * Rashid Tong, OT - 05/20/2023 3:16 [...] Tube Placement Right 05/18/2023 Laure Ricks PA [facility] INTERVENTIONL RAD PRG CATH PLMT LEFT HEART CATH & ARTS W/INJ & ANGIO IMG S&I N/A 11/09/2022 CORONARY ANGIOGRAPHY; W [facility],POSSIBLE PCI (WRVU 5.6) performed by Mario Alberto Escobedo MD at [facility] CATH LABS PRG COMBINED RIGHT & LEFT HEART CATH W/INJ L VENTRICULOGRAPHY, IMG S&I N/A 05/12/2023 COMBINED RIGHT & LEFT HEART CATH,INC INJ FOR L VENTRICULOGRAPHY (WRVU 5.99) performed by Antelmo Sharma MD at [facility] CATH LABS PRO AORTOPLAS FOR SUPRAVALV STEN N/A 09/21/2016 @AORTOPLASTY FOR SUPRAVALVULAR STENOSIS (WRVU 29.33) performed by Alirio Hudson MD at [facility] MAIN OR PRO REPLACE AORTIC VALVE (TAVR/FEDERICO)PERC FEMORAL ARTERY APPROACH 05/12/2023 @TRANSCATHETER AORTIC VALVE REPLACEMENT (TAVR), PERCUTANEOUS FEMORAL (WRVU 22.47) performed by Alirio Hudson MD at [facility] CATH LABS PRO REPLACEMENT PROSTHETIC AORTIC VALVE OPEN W CARDIOPULMONARY BYPASS HOMOGRF/STENT N/A 09/21/2016 @REPLACE AORTIC VALVE, OPEN, W\CPB, W\PROSTHETIC VALVE (WRVU 41.32) performed by Alirio Hudson MD at [facility] MAIN OR Social History: Patient lives alone. Home Setup: Pt lives on one level with tub shower and three steps to enter. 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 Total Minutes, Occupational Therapy: 28 ([id number]) OT Evaluation Code Rationale: Diagnosis & Pertinent Co-Morbidities affecting Plan of Care: see PMHx Occupational Profile & Client History: Brief Expanded Extensive x Assessment of Occupational Performance: 1-3 performance deficits 3-5 performance deficits x 5 + performance deficits Clinical Decision Making: Low Moderate High x Clinical decision making of moderate complexity using standardized patient assessment instrument and measurable assessment of functional outcome. Pager: [phone] TONG MIKE OT 05/20/2023 Occupational Therapy Rehabilitation [...] 0600 and on the weekends please page [phone]. * Rylie Rodriguez MD - 05/19/2023 3:59 [...] and plan. Cynthia Blackburn MD Nephrology Pager: [phone] * Diana Espino - 05/19/2023 1:49 PM EDT Jail Officer Encounter Note Patient Name: Purnima Thacker : [id number] MR#: [id number] Admit Date: 05/08/2023 9:14 AM Hospital Day [...] returning home alone. Anticipated Discharge Disposition (PT): chcf facility, swing bed rehabilitation facility Consult Recommendations: [...] as stated. Total Minutes, Physical Therapy: 38 ([phone]) Henrik Dale CANDY Navarrete Pager: [phone] Physical Therapy Inpatient Rehabilitation Department * Nico [...] 0600 and on the weekends please page [phone]. * Laure Ricks PA - 05/19/2023 7:56 [...] Ricks PA-C Interventional Radiology IR Team Pager [phone] * Consuelo Espinoza RN - 05/18/2023 4:13 PM EDT ANGIO NURSING DATABASE Name: Purnima Thacker Date of : 1955 AGE: 67 y.o. Address: [address] [place] [phone] (home) Mobile: No relevant phone numbers on [...] fraction I35.0 Mild coronary artery disease by [facility] 11/09/2022 I25.10 Heart failure with reduced [...] and plan. Cynthia Blackburn MD Nephrology Pager: [phone] * Magdalena Puri, ANURAG - 05/18/2023 10:51 AM EDT Images from the original note were not included. [facility] [address] [place], [place] [address] STRUCTURAL HEART DISEASE CONSULTATION NOTE PRIMARY CARE [...] stenosis. She is now status post TAVR Hjilv-as-Zculu with a 23 mm Lai 3 THV 05/12/[address] Sharma. Preliminary findings: Successful right transfemoral TAVR Rgsss-pb-Asrsi with a 23 mm Lai 3 THV. [...] perforation. Interval Events: - 05/12 Transferred to [facility] post- TAVR for pressor/inotropic support (Levo, vaso, [...] ejection fraction Mild coronary artery disease by [facility] 11/09/2022 Heart failure with reduced ejection [...] mg 81 mg Oral Daily Mara Serrano EXTRACTOR PULLER 81 mg at 05/18/23 0826 ondansetron (pf) [...] stenosis. She is now status post TAVR Ruyks-kf-Hgtnx with a 23 mm Lai 3 THV [...] Magdalena Puri APRN Structural Heart Team Pager [phone] Team Office Please see addendum by Dr. Sharma for final plan and recommendations Associated attestation - Antelmo Sharma MD - 05/19/2023 10:52 PM EDT I have reviewed Magdalena Puri APRN's above history and I agree with the details as written. The assessment and plan were formulated in discussion with me and I agree with them as documented. Antelmo Sharma MD Pager [phone] * Nico Palacios PA - 05/18/2023 8:13 [...] on the weekends please page [phone]. * Loli Hernandez, PT - 05/17/2023 5:27 [...] returning home alone. Anticipated Discharge Disposition (PT): chcf facility, swing bed rehabilitation facility Consult Recommendations: [...] plan as stated. Time IN / OUT: 9148-0779 Total Minutes, Physical Therapy: 54 Billing Code: te-sx2, te-f, gait LOLI HERNANDEZ PT Pager: [phone] Physical Therapy Inpatient Rehabilitation Department * Cynthia [...] Well controlled. Cynthia Blackburn MD Nephrology Pager: [phone] * Mara Serrano, EXTRACTOR PULLER - 05/17/2023 8:26 AM EDT Cardiac Surgery [...] 0600 and on the weekends please page [phone]. * Guerda Del Valle - 05/16/2023 10:44 AM EDT Nutrition Services Note - Low Nutrition Acuity Purnima Thacker is a 67 y.o. female Reason for intervention: hospital day 9 Nutrition Plan: Continue diet order Encourage good PO Lasix and Zofran noted Added special serve: open containers Monitor weight Patient scheduled for a hospital day 9 nutrition evaluation. Care Taker met with pt at bedside. Pt reports that her appetite and PO has much improved since admission. Denies nausea/vomiting or trouble chewing/swallowing. Care Taker provided snack list but pt not interested in adding snacks at this time. Her only concern was that she is worried that she will eat too much which will cause too much pressure in her stomach. Care Taker assured pt and suggested eating smaller but [...] Last Bowel Movement: 05/10/23 Guerda Del Valle Bead Worker Sewing * Vinod Juárez PA - 05/16/2023 10:19 [...] 0600 and on the weekends please page [phone]. * Michael Jeffers MD - 05/16/2023 8:11 AM EDT Images from the original note were not included. Hypertension-Nephrology Inpatient Follow-up Purnima Thacker [id number] 1955 ID: 67 y.o. old female seen [...] IRONSAT 12 (L) 05/16/2023 SFOLATE >20.0 07/03/2022 [id number] 07/03/2022 Lab Results Component Value Date [...] Dr. Ayoub. Please contact me at phone: [phone] or pager: [phone] with any questions. Michael Jeffers MD Nephrology [...] CXR before pushing for further diuresis. * Jaems Agustin MD - 05/15/2023 2:40 PM EDT [...] -Nephrology consulted, labs and renal US ordered -[place] removed, ambulated around the unit -bilateral pleural [...] 0600 and on the weekends please page [phone]. * Hortencia Cody MD - 05/15/2023 2:07 [...] not included. Hypertension-Nephrology Inpatient Follow-up Purnima Thacker [id number] 1955 ID: 67 y.o. old female seen [...] HGB 7.8 (L) 05/13/2023 SFOLATE >20.0 07/03/2022 [id number] 07/03/2022 Lab Results Component Value Date [...] Dr. Ayoub. Please contact me at phone: [phone] or pager: [phone] with any questions. Michael Jeffers MD Nephrology [...] outlined inthis evaluation. HAVEN BA, PT Pager: [phone] Physical Therapy Inpatient Rehabilitation Department Time IN / OUT: 8571-2207 Total time: Total Minutes, Physical Therapy: 30 [...] 0600 and on the weekends please page [phone]. * Antelmo Sharma MD - 05/14/2023 7:56 AM EDT Images from the original note were not included. [facility] [place] [address] STRUCTURAL HEART DISEASE CONSULTATION NOTE PRIMARY CARE [...] stenosis. She is now status post TAVR Bwrnp-jp-Ewwkl with a 23 mm Lai 3 THV 05/12/[address] Sharma. Preliminary findings: Successful right transfemoral TAVR Kknxh-lk-Jufny with a 23 mm Lai 3 THV. [...] ejection fraction Mild coronary artery disease by [facility] 11/09/2022 Heart failure with reduced ejection [...] stenosis. She is now status post TAVR Iiqxa-rd-Ficrz with a 23 mm Lai 3 THV 05/12/[address] Sharma. Janet TAVR case notable for coronary LAD protective MINNA. Status post TAVR, the patient was transferred to [facility] for pressor and inotropic support. Pressors weaned overnight 05/12. Cardiac indices by thermodilution remained >3 with continued Milrinone 0.125 mcg/kg/min prior to PAC removal. EKG todayNSR with stable AZ/QRS intervals. Hemoglobin slowly down-trending (8.2-> 7.8-> 7.2). [...] Dale ANURAG Kaplan Structural Heart Team Pager [phone] Team Office Please see addendum by Dr. [...] exposure. Nephrology consultationtoday. Antelmo Sharma MD Pager [phone] * Antelmo Cardenas RN - 05/14/2023 5:18 AM EDT Pt AOx4, complaining of mild/moderate generalized pain (states her Meloxicam is effective at home) currently refusing prn oxycodone. NAEON, hemodynamically stable on Milrinone, Maps >65, ST in ouk899's down to NSR with frequent multifocal PVC's. [...] from the original note were not included. [facility] [place] [address] STRUCTURAL HEART DISEASE PROGRESS NOTE PRIMARY CARE [...] stenosis. She is now status post TAVR Cbhqt-yw-Esxlo with a 23 mm Lai 3 THV 05/12/[address] Sharma. Preliminary findings: Successful right transfemoral TAVR Qjqsv-nx-Wrwop with a 23 mm Lai 3 THV. [...] or perforation. Interval Events: - Transferred to [facility] post- TAVR for pressor/inotropic support (Levo, vaso, [...] ejection fraction Mild coronary artery disease by [facility] 11/09/2022 Heart failure with reduced ejection [...] stenosis. She is now status post TAVR Baqrg-wn-Dryds with a 23 mm Lai 3 THV 05/12/[address] Sharma. Janet TAVR case notable for coronary LAD protective MINNA. Status post TAVR, the patient was transferred to [facility] for pressor and inotropic support. Pressors weaned overnight. Cardiac indices by thermodilution remain greater than 3 with continued Milrinone 0.125 mcg/kg/min. EKG today NSR with stable AZ/QRS intervals. Hemoglobin 7.8 today from 8.5, likely [...] Brody Kaplan APRN Structural Heart Team Pager [phone] Team Office Please see addendum by Dr. [...] DAPT moving forward. Antelmo Sharma MD Pager [phone] * Bonita Miguel PA - 05/13/2023 8:30 AM EDT Cardiac Surgery Progress Note Purnima Thacker is a 67 y.o. 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 PMH of s/p tissue AVR (2017), mixed connective tissue disease HTN, HLD, NICOLAS, diverticulosis, rosacea, essential tremor, and depression. 24h Events: From label stamper for above procedure Extubated at ~1600 to [...] soft b/l, no evidence of hematoma. Tubes/Lines/Drains: Toronto, RIJ, A-line, Art, PIV Assessment/Plan: 67 y.o. [...] 0600 and on the weekends please page [phone]. * Onelia Schwartz MD - 05/12/2023 1:44 [...] ejection fraction Mild coronary artery disease by [facility] 11/09/2022 Heart failure with reduced ejection [...] FiO2 weaned to 40%. 1105: ABG 7.34/42/73/22 7912-0533: SBT performed and passed on these settings [...] PCP: Magdalena Acosta MD PCP phone number: [phone] Date of Admission: 05/08/2023 ( Hospital Day [...] 1447 PHART -- 7.34* 7.34* -- -- FMI2LOQ -- 30* 30* -- -- PO2ART -- 72* 81* -- -- OMJ1ZDS -- 16.0* 15.7* -- -- LACTATEVEN 2.4* 2.7* 2.7* 4.8* 2.9* VBG (Venous Blood Gas) Recent Labs 05/12/23 0700 05/12/23 0318 05/12/2310505/11/23193905/11/23 1447 LACTATEVEN 2.4* 2.7* 2.7* 4.8* 2.9* Mixed Venous Sat Recent Labs 05/12/23 0508 05/12/23 0321 05/12/23 0114 05/12/23 0030 [id number] 30.7 32.7 37.3 25.1 Objective: Vitals Last [...] have questions please contact the health care management assistant that requested your imaging first. Electronically signed by: ALIX RUVALCABA MD, [facility] ([phone]), at 05/10/2023 1:[address] Cardiac for [...] have questions please contact the health care management assistant that requested your imaging first. Electronically signed by: Cullen Narayanan MD, [facility] ([phone]), at 05/11/2023 4:[address] Angiogram Abdomen [...] have questions please contact the health care management assistant that requested your imaging first. Electronically signed by: Eileen Gomes MD, [facility] ([phone]), at 05/11/2023 2:42 PM XR Chest One [...] have questions please contact the health care management assistant that requested your imaging first. Electronically signed by: Will Rowe MD, [facility] ([phone]), at 05/11/2023 11:57 PM XR Chest One [...] have questions please contact the health care management assistant that requested your imaging first. Electronically signed by: Will Rwoe MD, [facility] ([phone]), at 05/12/2023 3:16 AM Assessment & Plan: [...] and inotrope. She is planned for a blrtf-ao-kohpc TAVR this morning, which should hopefully improve [...] MD, FACP, FACC Section of Cardiovascular Medicine [facility] Inspector Conveyor Linewashing machine loader [facility] at [facility] * Noreen Deutsch RN - 05/12/2023 [...] ejection fraction Mild coronary artery disease by [facility] 11/09/2022 Heart failure with reduced ejection [...] 05/11/2023 4:11 PM EDT Reported off to SUPERIOR COURT CLERK and pt transferred over in the bed for higher level of care. * Antelmo Sharma MD - 05/11/2023 9:45 AM EDT Images from the original note were not included. [facility] [id number] STRUCTURAL HEART DISEASE CONSULTATION NOTE PRIMARY CARE [...] who had been referred for possible TAVR qytab-ht-kdsim evaluation. Her primary symptoms are of dyspnea [...] otherwise negative. Ms. Thacker is originally from [facility]. 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 [...] ejection fraction Mild coronary artery disease by [facility] 11/09/2022 Heart failure with reduced ejection [...] hour(s)) Lactate, whole blood, send to lab ([facility]) Result Value Ref Range Lactate WB 3.1 (H) 0.5 - 2.2 mmol/L Heparin (unfractionated) Level Result Value Ref Range Heparin UFH Level 0.46 IU/mL Lactate, whole blood, send to lab ([facility]) Result Value Ref Range Lactate WB 1.8 [...] leads Confirmed by MD Harshil, Enrique Bell ([id number]) on 05/10/2023 8:11:46 AM Cardiac Cath 11/09/2022 [...] to decompensating HFrEF, she was transferred to [facility] this afternoon for further management. TAVR CT imaging support for adequate ileofemoral access. Given her acute deterioration today, will planfor RTF TAVR on 05/12/2023. Brody Kaplan ANURAG Structural Heart Disease Pager [phone] Please see addendum by Dr. Sharma for [...] signed and dated. Antelmo Sharma MD Pager [phone] * Harini Lance MD - 05/11/2023 6:06 AM EDT Images from the original note were not included. Cardiology Progress Note Patient info: Name: Purnima Thacker : 1955 PCP: Magdalena Acosta MD PCP phone number: [phone] Date of Admission: 05/08/2023 ( Hospital Day [...] have questions please contact the health care management assistant that requested your imaging first. Electronically signed by: ALIX RUVALCABA MD, [facility] ([phone]), at 05/10/2023 1:25 PM TTE: 05/08 -Left [...] 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) Mild coronary artery disease by [facility] 11/09/2022 Hyperlipidemia, unspecified NICOLAS (obstructive sleep [...] PCP: Magdalena Acosta MD PCP phone number: [phone] Date of Admission: 05/08/2023 ( Hospital Day [...] 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) Mild coronary artery disease by [facility] 11/09/2022 Hyperlipidemia, unspecified NICOLAS (obstructive sleep [...] PCP: Magdalena Acosta MD PCP phone number: [phone] Date of Admission: 05/08/2023 ( Hospital Day [...] Gas) No results found for: PHART, PO2ART, TDF5CIS, QPF2KGW Microbiology: Microbiology Results (Last 30 days) No [...] PPx: Diet: Daily Healthy Menu Choices/Cardiac diet ([facility]-Diet) Lines: Peripheral IV Line - Single Lumen [...] 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) Mild coronary artery disease by [facility] 11/09/2022 Hyperlipidemia, unspecified NICOLAS (obstructive sleep [...] fraction I35.0 Mild coronary artery disease by [facility] 11/09/2022 I25.10 Heart failure with reduced ejection fraction due to heart valve disease I50.20, I38 Cardiogenic shock R57.0 S/P TAVR (transcatheter aortic valve replacement) Z95.2 Past Medical History: Diagnosis Date Anemia Past Surgical History: Procedure Laterality Date PRG CATH PLMT LEFT HEART CATH & ARTS W/INJ & ANGIO IMG S&I N/A 11/09/2022 CORONARY ANGIOGRAPHY; W [facility],POSSIBLE PCI (WRVU 5.6) performed by Mario Alberto Escobedo MD at [facility] CATH LABS PRO AORTOPLAS FOR SUPRAVALV STEN N/A 09/21/2016 @AORTOPLASTY FOR SUPRAVALVULAR STENOSIS (WRVU 29.33) performed by Alirio Hudson MD at [facility] MAIN OR PRO REPLACEMENT PROSTHETIC AORTIC VALVE OPEN W CARDIOPULMONARY BYPASS HOMOGRF/STENT N/A 09/21/2016 @REPLACE AORTIC VALVE, OPEN, W\CPB, W\PROSTHETIC VALVE (WRVU 41.32) performed by Alirio Hudson MD at [facility] MAIN OR Social History and Habits: [...] Verio test strips Strip USE DAILY OneTouch [employer] Met[employer] Plus Lancet 33 gauge Misc USE DAILY [...] fraction I35.0 Mild coronary artery disease by [facility] 11/09/2022 I25.10 Heart failure with reduced ejection fraction due to heart valve disease I50.20, I38 Cardiogenic shock R57.0 S/P TAVR (transcatheter aortic valve replacement) Z95.2 Past Medical History: Diagnosis Date Anemia Past Surgical History: Procedure Laterality Date PRG CATH PLMT LEFT HEART CATH & ARTS W/INJ & ANGIO IMG S&I N/A 11/09/2022 CORONARY ANGIOGRAPHY; W [facility],POSSIBLE PCI (WRVU 5.6) performed by Mario Alberto Escobedo MD at [facility] CATH LABS PRO AORTOPLAS FOR SUPRAVALV STEN N/A 09/21/2016 @AORTOPLASTY FOR SUPRAVALVULAR STENOSIS (WRVU 29.33) performed by Alirio Hudson MD at [facility] MAIN OR PRO REPLACEMENT PROSTHETIC AORTIC VALVE OPEN W CARDIOPULMONARY BYPASS HOMOGRF/STENT N/A 09/21/2016 @REPLACE AORTIC VALVE, OPEN, W\CPB, W\PROSTHETIC VALVE (WRVU 41.32) performed by Alirio Hudson MD at [facility] MAIN OR Social History and Habits: [...] days, which prompted her to present to [facility]. She also endorses some intermittent retrosternal chest pain with exertion.She endorses some dizziness with exertion, but has not gotten faint or passed out. At [facility] she was noted to be afebrile, blood pressure 105/64, HR 120s, satting 95% on 2L NC. Labs from [facility] are below, of note [...] 89/59, which prompted the transfer to us. [facility] labs: CBC - Hgb 10.5 CMP - Cr 1.1 BNP 48886 HsTrop 1358 Lactate 1.6 D-dimer 1183 Interval [...] Code Status: Attempt Cardiopulmonary Resuscitation - Inpatient [facility] Roman Reid MD Internal Medicine PGY-1 Pager [phone], M1-S1 Service Associated attestation - Juan Luis Gonzalez MD - 05/08/2023 10:00 PM EDT Cardiology Attending Addendum Active Hospital Problems Diagnosis Symptomatic severe aortic stenosis with low ejection fraction Heart failure with reduced ejection fraction due to heart valve disease Mild coronary artery disease by [facility] 11/09/2022 Hyperlipidemia, unspecified History of aortic [...] PCP: Magdalena Acosta MD PCP phone number: [phone] Date of Admission: 05/08/2023 ( Hospital Day 0 days ) Attending:Enrique Chua MD ID: Purnima Thacker is a 67 y.o. female w/ PMH of s/p bioprosthetic AVR in 2016 with recent concern for severe restenosis, HTN, HLD, mixed connective tissue disease, who presents in transfer from [facility] with worsening BONILLA and [...] four days, which promptedher to present to [facility]. She also endorses some intermittent retrosternal chest pain with exertion. She endorses some dizziness with exertion, but has not gotten faint or passed out. At [facility] she was noted to be afebrile, blood pressure 105/64, HR 120s, satting 95% on 2L NC. Labs from [facility] are below, of note [...] 89/59, which prompted the transfer to us. [facility] labs: CBC - Hgb 10.5 CMP - Cr 1.1 BNP 08013 HsTrop 1358 Lactate 1.6 D-dimer 1183 Vasoactive [...] tissue disease, who [facility] BONILLA and weight [...] #Routine Diet: Daily Healthy Menu Choices/Cardiac diet ([facility]-Diet) DVT Prophylaxis: heparin gtt GI Prophylaxis: none [...] 10/2022 #Medical comorbidities: Mixed connective tissues disease, NCIOLAS on CPAP, HTN, obesity (BMI 32) In [...] remains HD stable, can transfer out of [facility]. -Structural Heart consult; will need inpatient TAVR. [...] to the planned procedure. Hand Hygiene: The resource director did perform hand hygiene prior to [...] Successful arterial line placement. Crispin Timmons MD Commercial Relief Driver Associated attestation - Onelia Schwartz MD - [...] (flow was non-pulsatile) and appearance of blood. Toronto-Marily catheter was placed and locked at 55 [...] Miscellaneous Notes * Plan of Care - iKa Gallego RN - 05/22/2023 9:39 AM EDT [...] information for follow-up [facility], [facility] [address] [place] [address] Cardiac Rehab, [facility] [address] [place] [address] [facility] [address] [place] [address] Transportation: family or friend will provide *Brother [...] Type: *No Product type* / Secondary Insurance: [employer] [place] Prescription Coverage: Yes This plan was formulated with input from patient, family (please identify family/friend involved ifapplicable) and team. All are in agreement with plan. Aliza Martino MSN-Ed, RN ACM pipeline systems operator Office of Care Management Pager #[phone] * Plan of Care - Favian Mckeon [...] Chaudhary RN - 05/21/2023 4:46 PM EDTSummary: [facility] referral OFFICE OF CARE MANAGEMENT [...] Type: *No Product type* / Secondary Insurance: [employer] [place] Last Physical Therapy Recommendation: (Home with assist from Brother; Friend arriving Tues) with walker, front wheeled Last Occupational Therapy Recommendation: swing bed rehabilitation facility, chcf facility (vs home with support for IADLs) with walker, front wheeled, shower chair Plan for discharge is: Home w/ Services Outpatient Agency/Support Group Needs: Homecare agency Home Health Services: Physical Therapy, Occupational Therapy Agency Referrals: I have met with the patient to: discuss discharge planning needs. describing our affiliations within the [facility] and educate about their right to choose where referrals are sent. provide a list of Home Health Agencies / Durable Medical Equipment vendors which serve their preferred geographic area. They have requested referrals to: [facility] [address] [place] [address] Ortho Care Located @ [place], [place] Note routed to a Scientist Electronics who will communicate referrals to facilities and provide any required information. Transportation: family or friend will provide *Brother Raymond on Tuesday 05/22 at 1000 Barriers to discharge: Does not have home 22/02 assist available until tomorrow Tuesday 05/22 Plan going forward: Discharge home into the 22/02 home care of brother Raymond with [facility] and [facility] PT/OT services on Tuesday 05/22 [...] Attending: All Staff: Staff Role Juanita Almaguer Direct Sales Professional Laure Ricks PA Physician Assistant Commissioner Magdalena Rodriguez senior payroll administrator Nurse Consuelo Espinoza, senior payroll administrator Nurse Post-operative diagnosis/Indication: Right pleural effusion Name [...] Type: *No Product type* / Secondary Insurance: [facility]q [facility] Last Physical Therapy Recommendation: chcf facility, swing bed rehabilitation facility with to be determined Last Occupational Therapy Recommendation: with Plan for discharge is: Detention Facility / Swing Outpatient Agency/Support Group Needs: None Agency Referrals: Based on discussions with the multi-disciplinary healthcare team, the patient would benefit from SNF / Swing level of care at discharge. I have met with the patient to: discuss discharge planning needs. provide the [facility], Office of Care Management letter from the Sales Representative [facility] pertaining to rehab referrals. provide a letter describing our affiliations within the [facility] and educate about their right to choose where referrals are sent. provide the CMS Star Quality Rating handout. review the different levels of rehab including SNF, swing, and acute. provide a list of facilities within their preferred geographic area. request that they provide at least three choices for referral. They have requested referrals to: [facility] [address] [place] [address] [facility]) [address] [place] [address] (Accepts pts only after exhausting all other local SNF options) [facility] ([facility]) ([facility]) [address] [place] [address] PHONE: [phone] FAX: [phone] Simin Benavides [place] ([facility]) [facility]) [address] [place] [address] PHONE: [phone] FAX: [phone] Note routed to a Scientist Electronics who will communicate referrals to facilities and [...] Crenshaw RN - 05/17/2023 10:25 AM EDT [facility] Purnima Thacker was seen today regarding participation in the outpatient Phase 2 Cardiac Rehabilitation at [facility]. The patient agrees to [...] from the original note were not included. [facility] NEPHROLOGY/HYPERTENSION CONSULT NOTE PATIENT: Purnima Thacker [...] in her course. She ultimately underwent a jbqen-xj-rgnaz procedure on and tolerated it well (see [...] 1423 05/12/23 1105 PHART 7.39 7.37 7.34* CSN4YDC 33* 36 42 PO2ART 101 102 73* YSF4SYC 19.5* 20.4 22.1 LACTATEVEN 1.5 1.8 2.8* WWL8IAL 40 40 40 PFRATIOART2 252 255 182 VBG (Venous Blood Gas) Recent Labs 05/12/23 1557 05/12/23 1423 05/12/23 1105 LACTATEVEN 1.5 1.8 2.8* Mixed Venous Sat Recent Labs 05/12/23 1425 05/12/23 0508 05/12/23 0321 R2PWSG4 59.9 30.7 32.7 LFT's: Recent Labs 05/14/23 0110 05/13/23 0115 05/12/23 0600 BILITOT 0.4 0.5 0.9 BILIDIR -- 0.3 -- ALBUMIN 3.6 3.0* 3.5 ALKPHOS 86 85 100 ALT 437* 903* 1,174* AST 319* 792* 1,435* No results found for: UPROTCREAT No results found for: TPROTEINPEP, ALBELECT No results found for: MICROALBUR, RSNB88TAD No results found for: HA1C Lab Results Component Value Date CALCIUM 8.5 05/14/2023 PHOS 4.7 (H) 05/08/2023 No results found for: 25OHVITD MICROBIOLOGY: ProcedureComponentValueUnitsDate/TimeUrine culture [[id number]]Collected: 05/11/231921Lab Status: Final resultSpecimen: Clean Catch UrineUpdated: [...] consulted for assessment if this patient needs SECTION FOREST FIRE WARDEN. Atthis time, we can likely hold off on SECTION FOREST FIRE WARDEN. Her volume status appears sufficient and her metabolic kanwal angements with mild acidosis is not too profound. Patient does not have significant uremic symptoms. We can hold off for today, but the patient is a high risk candidate for needing SECTION FOREST FIRE WARDEN in future daysespecially if her Cr curve trends the direction it is for the next several days. S/p Vlupw-hq-Pmzbe TF TAVR: Management per cardiology. On milrinone gtt. PLAN: - Please obtain following diagnostics: renal US, urinalysis, urine prot/Cr ratio, urine albumin/Cr ratio, CK, uric acid, serum osmol, daily VBGs - No acute indications for SECTION FOREST FIRE WARDEN/dialysis. We will keep close eye on Cr trend, volume status, and metabolics to ensure patient still does not need SECTION FOREST FIRE WARDEN as she ensues intrinsic renal recovery - [...] M.H.A., M.A. PGY-V Nephrology-Hypertension Fellow Page # [phone] [facility] [address] 2nd floor, Motorcycle Engine Assembler [address] [place] [address] * Care Management - Mario Alberto Olmos RN - 05/13/2023 10:23 AM EDT OFFICE OF CARE MANAGEMENT PROGRESS NOTE LOS: Hospital Day 5 days Chart reviewed, care reviewed with primary team and at interdisciplinary rounds. Patient continues to meet inpatient level of critical care related to: sp TAVR. Per note by Geramn Hollins MD at 0745 on 05/12,24 Hour [...] for a TAVR at 730. Returned to [facility] at 0945. Was intubated in the label stamper due to agitation. Maintained bedrest for 5 [...] Operative Note Patient Name: Purnima Thacker : [id number] MR#: [id number] Case Date: 05/12/2023 Surgeon: Surgeon(s) and Role: Panel 1: * Antelmo Sahrma MD - Primary * Rebekah Tejeda MD [...] procedure Note: Patient Name: Purnima Thacker : [id number] MR#: [id number] Case Date: 05/12/2023 Operators Surgeon: Surgeon(s) and [...] main with 4.0 x 30 mm Resolute Dickerson Drug Eluting Stent Perclose x1 + Angio-seal 8 Fr x1, RFA Manual pressure, LFA Manual pressure, LFV Endotracheal intubation (performed by cardiac anesthesia) Preliminary findings: Successful right transfemoral TAVR Pzywp-rq-Gcyrd with a 23 mm Lai 3 THV. [...] MD, M.Sc. Structural Heart Disease Fellow Pager :[phone] Antelmo Sharma MD Pager [phone] * Op Note - Alirio Hudson MD - 05/12/2023 7:37 AM EDT Preop Diagnosis: Severe aortic stenosis, symptomatic. Postop Diagnosis: Same. Procedure: Transfemoral TAVR procedure with 23mm valve. Surgeon: Alirio Hudson M.D. Outside Solar Sales Consultant: Danny CULP Procedure: The patient was taken to the label stamper. The patient had monitored anesthesia care. 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 [facility] [place] [address] STRUCTURAL HEART DISEASE CONSULTATION NOTE PRIMARY CARE [...] who had been referred for possible TAVR kjric-vc-igyup evaluation. Her primary symptoms are of dyspnea [...] otherwise negative. Ms. Thacker is originally from [facility]. 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 PROBLEM LIST: Patient Active Problem List Diagnosis Symptomatic severe aortic stenosis with low ejection fraction Mild coronary artery disease by [facility] 11/09/2022 Heart failure with reduced ejection [...] hour(s)) Lactate, whole blood, send to lab ([facility]) Result Value Ref Range Lactate WB 1.8 [...] leads Confirmed by MD Harshil, Enrique Bell ([id number]) on 05/10/2023 8:11:46 AM Assessment and Plan: [...] Antelmo Sharma MD Structural Heart Disease Pager [phone] * Plan of Care - Sarahi Nice RN - 05/10/2023 3:55 AM EDTSumavis: VALDO Note and Care Plan Sarahi Nice RN assumed care of pt at time of their arrival to room 362 from [facility]. Pt voices shortness of breath at time [...] Transfer from another hospital Location: admitted from [facility] Reason for Hospitalization: Critical [...] receiving care in [place] must abide by [place] law. The hierarchy [...] (i) The agent with financial power of privacy attorney or a conservator appointed in accordance [...] Current DME: none Home Address confirmed as: [address] [place] [id number] Social & Family Supports: All names listed [...] Type: *No Product type* / Secondary Insurance: [facility] [place] ONLY if patient has Medicare A&B - Does this patient have secondary insurance?: Yes ; Prescription Coverage: Yes Preferred Pharmacy: updated to [facility] Hospital Status: Patient is a : No Primary Care Provider confirmed: Magdalena Acosta MD [phone] Patient/Caregiver Goals of Treatment: Potential Needs for [...] of a 2 story home with 2 [facility]. Patient is independent with ADL's at [...] of care planning. Alie Bradshaw RN, CM Pager-[phone] * Plan of Care - Emily Lucero RN - 05/08/2023 2:54 PM EDT OUTCOME EVALUATION NOTE: OUTCOME SUMMARY: Pt arrived from [facility]. A&O, no c/o pain [...] EDT Office Visit Dermatology at [place] [address] [place] [phone] Marek Bonilla MD [address], [place] [address] Scheduled Referrals Name Type Priority Associated Diagnoses [...] Heart Cath W/Inj L Ventriculography, Img S&I (84038) 05/12/2023 7:37 AM EDT Aortic valve stenosis, [...] DOPP COLOR DOPP (07/08/2023 12:15 PM EST) [facility] EF 20 HEARTLAB SYSTEM Anatomical Region Laterality Modality Cardiac Other 07/08/2023 10:3 1 AM EST Narrative 07/08/2023 12:26 PM EST [address] [place] [address] ? Echocardiogram Report Name: PURNIMA THACKER ?Study Date: 07/08/2023 10:31 AMBP: 118/60 mmHg ? [facility] 1955 ? Height: 155 cm ? Account: [id number] Age: 67 yrs ? Weight: 74 kg Gender: Female ?BSA: 1.7 m2 Ordering Physician: ALIRIO HUDSON Referring Physician: VINOD JUÁREZ Performed By: Felicia Norris RODOLFO Reason For Study: S/P TAVR Exam Location: [facility]. Interpretation Summary Left ventricular systolic function [...] no significant change (post-procedure). Procedure Limited - 18033. Doppler - 27431. Color Doppler - 62791. Satisfactory quality. This study is limited because [...] Note Lee Kincaid MD - 07/08/2023 [address] [place] [address] Echocardiogram Report Name: LASHELL THACKERDARWIN Mejias Study Date: 0:31 AMBP: 118/60 mmHg Patient Location: : 1955 Height: 155 cm Account: [id number] Age: 67 yrs Weight: 74 kg Gender: Female BSA: 1.7 m2 Ordering Physician: ALIRIO HUDSON Referring Physician: VINOD JUÁREZ Performed By: Felicia Norris RDCS Reason For Study: S/P TAVR Exam Location: [facility]. Interpretation Summary Left ventricular systolic function [...] is nosignificant change (post-procedure). Procedure Limited - 01001. Doppler - 61390. Color Doppler - 99141. Satisfactoryquality. This study is limited because of [...] EST) Glucose 93 65 - 199 mg/dL [facility] Comment:Diabetes: >=200 mg/d L plus symptoms Blood Urea Nitrogen 19(H) 8 - 18 mg/dL [facility] Creatinine 0.81 0.70 - 1.20 mg/dL [facility] Sodium 142 135 - 145 mmol/L [facility] Potassium 3.8 3.5 - 5.0 mmol/L [facility] Comment: Please note: ??Patients with WBC >100,000 may have falsely elevated Potassium levels. ??For accurate Potassium quantification in these patients send serum separator tube (gold top) for subsequent determinations. ??Contact the Clinical Chemistry Laboratory if there are any questions. Chloride 104 98 - 107 mmol/L [facility] Carbon Dioxide 26 22 - 31 mmol/L [facility] Anion Gap 12 5 - 15 mmol/L [facility] Calcium 10.2 8.5 - 10.5 mg/dL [facility] Protein, Total 7.4 6.1 - 8.0 g/dL [facility] Albumin 4.1 3.2 - 5.2 g/dL [facility] Aspartate Aminotransferase 24 0 - 30 unit/L [facility] Alanine Aminotransferase 12 0 - 30 unit/L [facility] Alkaline Phosphatase 93 35 - 105 unit/L [facility] Bilirubin, Total 0.3 0.2 - 1.3 mg/dL [facility] Est Glomerular Filtration Rate 80 >=60 mL/min/1. 73 m?? [facility] Comment: This patient's estimated GFR [...] Lab Alirio Hudson MD CHEMISTRY ORDERABLE S [facility] [place] [address] [place] [address] * (ABNORMAL) Basic Metabolic Panel (non-fasting) (05/22/2023 3:57 AM EDT) Glucose 88 65 - 199 mg/dL [facility] Comment:Diabetes: >=200 mg/d L plus symptoms Blood Urea Nitrogen 21(H) 8 - 18 mg/dL [facility] Creatinine 0.69(L) 0.70 - 1.20 mg/dL [facility] Sodium 136 135 - 145 mmol/L [facility] Potassium 3.6 3.5 - 5.0 mmol/L [facility] Comment: Please note: ??Patients with WBC >100,000 may have falsely elevated Potassium levels. ??For accurate Potassium quantification in these patients send serum separator tube (gold top) for subsequent determinations. ??Contact the Clinical Chemistry Laboratory if there are any questions. Chloride 102 98 - 107 mmol/L [facility] Carbon Dioxide 23 22 - 31 mmol/L [facility] Anion Gap 11 5 - 15 mmol/L [facility] Calcium 8.6 8.5 - 10.5 mg/dL [facility] Est Glomerular Filtration Rate 95 >=60 mL/min/1. 73 m?? [facility] Comment: This patient's estimated GFR [...] Lab Mara Serrano ANURAG CHEMISTRY ORDERABL ES [facility] [place] [address] * (ABNORMAL) Basic Metabolic Panel (non-fasting) (05/21/2023 5:06 AM EDT) Glucose 87 65 - 199 mg/dL [facility] Comment:Diabetes: >=200 mg/d L plus symptoms Blood Urea Nitrogen 25(H) 8 - 18 mg/dL [facility] Creatinine 0.84 0.70 - 1.20 mg/dL [facility] Sodium 136 135 - 145 mmol/L [facility] Potassium 3.6 3.5 - 5.0 mmol/L [facility] Comment: Please note: ??Patients with WBC >100,000 may have falsely elevated Potassium levels. ??For accurate Potassium quantification in these patients send serum separator tube (gold top) for subsequent determinations. ??Contact the Clinical Chemistry Laboratory if there are any questions. Chloride 102 98 - 107 mmol/L [facility] Carbon Dioxide 26 22 - 31 mmol/L [facility] Anion Gap 8 5 - 15 mmol/L [facility] Calcium 8.9 8.5 - 10.5 mg/dL [facility] Est Glomerular Filtration Rate 76 >=60 mL/min/1. 73 m?? [facility] Comment: This patient's estimated GFR [...] Narrative Resulting Agency Comment Spec In Lab [facility] EXTRACTOR PULLER CHEMISTRY ORDERABL ES Performing Organization Address City/[facility]/ZIP Co de Phone Number [facility] [place] [address] * Lavender Tube HOLD (05/20/2023 2:52 AM EDT) Lavender Hold Sample in lab. [facility] Blood Venous Draw / Unknown 05/20/2023 2:52 AM EDT 05/20/2023 3:04 AM EDT [facility] EXTRACTOR PULLER HEMATOLOGY ORDERAB LES Performing Organization Address City/[facility]/ZIP Co de Phone Number [facility] [place] [address] * (ABNORMAL) Basic Metabolic Panel (non-fasting) (05/20/2023 2:52 AM EDT) Glucose 152 65 - 199 mg/dL [facility] Comment:Diabetes: >=200 mg/d L plus symptoms Blood Urea Nitrogen 33(H) 8 - 18 mg/dL [facility] Creatinine 0.82 0.70 - 1.20 mg/dL [facility] Sodium 137 135 - 145 mmol/L [facility] Potassium 3.7 3.5 - 5.0 mmol/L [facility] Comment: Please note: ??Patients with WBC >100,000 may have falsely elevated Potassium levels. ??For accurate Potassium quantification in these patients send serum separator tube (gold top) for subsequent determinations. ??Contact the Clinical Chemistry Laboratory if there are any questions. Chloride 99 98 - 107 mmol/L [facility] Carbon Dioxide 22 22 - 31 mmol/L [facility] Anion Gap 16(H) 5 - 15 mmol/L [facility] Calcium 9.0 8.5 - 10.5 mg/dL [facility] Est Glomerular Filtration Rate 78 >=60 mL/min/1. 73 m?? [facility] Comment: This patient's estimated GFR [...] Agency Comment Spec In Lab [facility] [place] EXTRACTOR PULLER CHEMISTRY ORDERABL ES Performing Organization Address [facility] Co de Phone Number [facility] [place] [address] * (ABNORMAL) Potassium (05/20/2023 2:52 AM EDT) [facility] Potassium 3.4(L) 3.5 - 5.0 mmol/L [facility] Comment: Please note: ??Patients with WBC >100,000 may have falsely elevated Potassium levels. ??For accurate Potassium quantification in these patients send serum separator tube (gold top) for subsequent determinations. ??Contact the Clinical Chemistry Laboratory if there are any questions. Blood 05/20/2023 2:52 AM EDT 05/20/2023 3:03 AM EDT Narrative Resulting Agency Comment Spec In Lab Mara [place] EXTRACTOR PULLER CHEMISTRY ORDERABL ES Performing Organization Address [facility] de Phone Number [facility] [place] [address] * XR Chest PA & Lateral (Generic) [...] have questions please contact the health care management assistant that requested your imaging first. ? Electronically signed by: Chyna Johnson MD, [facility] ??([phone]), at 05/19/2023 2:19 PM Narrative 05/19/2023 2:19 [...] who have questions please contactthe health care management assistant that requested your imaging first. Electronically signed by: Chyna Johnson MD, [facility]([phone]), at 05/19/2023 2:19 PM Alirio Hudson MD IMG DX ORDERABLES * (ABNORMAL) Basic Metabolic Panel (non-fasting) (05/19/2023 5:49 AM EDT) Glucose 93 65 - 199 mg/dL [facility] Comment:Diabetes: >=200 mg/d L plus symptoms Blood Urea Nitrogen 45(H) 8 - 18 mg/dL [facility] Creatinine 1.02 0.70 - 1.20 mg/dL [facility] Sodium 138 135 - 145 mmol/L [facility] Potassium 3.9 3.5 - 5.0 mmol/L [facility] Comment: Please note: ??Patients with WBC >100,000 may have falsely elevated Potassium levels. ??For accurate Potassium quantification in these patients send serum separator tube (gold top) for subsequent determinations. ??Contact the Clinical Chemistry Laboratory if there are any questions. Chloride 102 98 - 107 mmol/L [facility] Carbon Dioxide 26 22 - 31 mmol/L [facility] Anion Gap 10 5 - 15 mmol/L [facility] Calcium 9.7 8.5 - 10.5 mg/dL [facility] Est Glomerular Filtration Rate 60 >=60 mL/min/1. 73 m?? [facility] Comment: This patient's estimated GFR [...] Agency Comment Spec In Lab Mara Serrano EXTRACTOR [place] [address] * IR Chest Tube Placement Right (05/18/2023 [...] EDT) Glucose 95 65 - 199 mg/dL [facility] Comment:Diabetes: >=200 mg/d L plus symptoms Blood Urea Nitrogen 71(H) 8 - 18 mg/dL [facility] Comment:result rechecked-JSJ Creatinine 1.64(H) 0.70 - 1.20 mg/dL [facility] Comment:result rechecked-JSJ Sodium 137 135 - 145 mmol/L [facility] Potassium 3.7 3.5 - 5.0 mmol/L [facility] Comment: Please note: ??Patients with WBC >100,000 may have falsely elevated Potassium levels. ??For accurate Potassium quantification in these patients send serum separator tube (gold top) for subsequent determinations. ??Contact the Clinical Chemistry Laboratory if there are any questions. Chloride 100 98 - 107 mmol/L [facility] Carbon Dioxide 24 22 - 31 mmol/L [facility] Anion Gap 13 5 - 15 mmol/L [facility] Calcium 9.7 8.5 - 10.5 mg/dL [facility] Est Glomerular Filtration Rate 34(L) >=60 mL/min/1. 73 m?? [facility] Comment: This patient's estimated GFR [...] Agency Comment Spec In Lab Mara Serrano EXTRACTOR PULLER CHEMISTRY ORDERABL ES [facility] [place] [address] * XR Chest PA & Lateral (Generic) [...] have questions please contact the health care management assistant that requested your imaging first. ? Electronically signed by: Ghassan Reyes MD, [facility] ??([phone]), at 05/17/2023 11:46 AM Narrative 05/17/2023 11:46 [...] who have questions please contactthe health care management assistant that requested your imaging first. Electronically signed by: Ghassan Reyes MD, [facility]([phone]), at 05/17/2023 11:46 AM Alirio Hudson MD IMG DX ORDERABLES * (ABNORMAL) Comprehensive metabolic panel (non-fasting) (05/17/2023 4:35 AM EDT) Glucose 89 65 - 199 mg/dL [facility] Comment:Diabetes: >=200 mg/d L plus symptoms Blood Urea Nitrogen 97(H) 8 - 18 mg/dL [facility] Creatinine 2.97(H) 0.70 - 1.20 mg/dL [facility] Comment:result rechecked-JSJ Sodium 135 135 - 145 mmol/L [facility] Potassium 4.1 3.5 - 5.0 mmol/L [facility] Comment: Please note: ??Patients with WBC >100,000 may have falsely elevated Potassium levels. ??For accurate Potassium quantification in these patients send serum separator tube (gold top) for subsequent determinations. ??Contact the Clinical Chemistry Laboratory if there are any questions. Chloride 97(L) 98 - 107 mmol/L [facility] Carbon Dioxide 22 22 - 31 mmol/L [facility] Anion Gap 16(H) 5 - 15 mmol/L [facility] Calcium 9.6 8.5 - 10.5 mg/dL [facility] Protein, Total 6.5 6.1 - 8.0 g/dL [facility] Albumin 3.7 3.2 - 5.2 g/dL [facility] Aspartate Aminotransferase 58(H) 0 - 30 unit/L [facility] Alanine Aminotransferase 66(H) 0 - 30 unit/L [facility] Alkaline Phosphatase 86 35 - 105 unit/L [facility] Bilirubin, Total 0.6 0.2 - 1.3 mg/dL [facility] Est Glomerular Filtration Rate 17(L) >=60 mL/min/1. 73 m?? [facility] Comment: This patient's estimated GFR [...] HEALTH CARE SERVICES Co de Phone Number [facility] [place] [address] * Potassium (05/16/2023 11:15 PM EDT) Potassium 3.7 3.5 - 5.0 mmol/L [facility] Comment: Please note: ??Patients with [...] MD CHEMISTRY ORDERABLE S Performing Organization Address City/[facility]/ZIP Co de Phone Number [facility] [place] [address] * Magnesium (05/16/2023 5:22 PM EDT) Magnesium 0.96 0.69 - 1.07 mmol/L [facility] Blood 05/16/2023 5:22 PM EDT 05/16/2023 5:27 PM EDT Narrative Resulting Agency Comment Spec In Lab Alirio Hudson MD CHEMISTRY ORDERABLE S Performing Organization Address [facility] Co de Phone Number [facility] [place] [address] * (ABNORMAL) Basic Metabolic Panel (non-fasting) (05/16/2023 5:22 PM EDT) Glucose 106 65 - 199 mg/dL [facility] Comment:Diabetes: >=200 mg/d L plus symptoms Blood Urea Nitrogen 103(H) 8 - 18 mg/dL [facility] Creatinine 3.91(H) 0.70 - 1.20 mg/dL [facility] Comment:result rechecked-imm Sodium 132(L) 135 - 145 mmol/L [facility] Potassium 3.6 3.5 - 5.0 mmol/L [facility] Comment: Please note: ??Patients with WBC >100,000 may have falsely elevated Potassium levels. ??For accurate Potassium quantification in these patients send serum separator tube (gold top) for subsequent determinations. ??Contact the Clinical Chemistry Laboratory if there are any questions. Chloride 92(L) 98 - 107 mmol/L [facility] Carbon Dioxide 22 22 - 31 mmol/L [facility] Anion Gap 18(H) 5 - 15 mmol/L [facility] Calcium 9.7 8.5 - 10.5 mg/dL [facility] Est Glomerular Filtration Rate 12(L) >=60 mL/min/1. 73 m?? [facility] Comment: This patient's estimated [...] S Performing Organization Address [facility] Co de Phone Number [facility] [place] [address] * (ABNORMAL) Potassium (05/16/2023 11:43 AM EDT) Potassium 3.3(L) 3.5 - 5.0 mmol/L [facility] Comment: Please note: ??Patients with [...] S Performing Organization Address [facility] Co de Phone Number [facility] [place] [address] * (ABNORMAL) Ferritin (05/16/2023 4:41 AM EDT) Ferritin 1,813(H) 30 - 400 ng/mL [facility] Comment: Pediatric reference ranges not verified at [place], interpret with caution. Reference ranges for females greater than 50 years of age approach values for men, i.e., 30-400 ng/mL. Blood 05/16/2023 4:41 AM EDT 05/16/2023 4:54 AM EDT Narrative Resulting Agency Comment Spec In Lab Kristopher Ayoub MD CHEMISTRY ORDERABLES Performing Organization Address City/[facility]/ZIP Co de Phone Number [facility] [place] [address] * (ABNORMAL) PTH (05/16/2023 4:41 AM EDT) Parathyroid Hormone 120(H) 15 - 65 pg/mL [facility] Blood 05/16/2023 4:41 AM EDT 05/16/2023 4:54 AM EDT Narrative Resulting Agency Comment Spec In Lab Kristopher Ayoub MD CHEMISTRY ORDERABLES Performing Organization Address [facility] Co de Phone Number [facility] [place] [address] * Vitamin D, 25-Hydroxy (05/16/2023 4:41 AM EDT) Vitamin D Total 25 OH 33 21 - 100 ng/mL [facility] Vit D Interp Sufficient [facility] Blood 05/16/2023 4:41 AM EDT 05/16/2023 4:54 AM EDT Narrative Resulting Agency Comment Spec In Lab Kristopher Ayoub MD CHEMISTRY ORDERABLES Performing Organization Address City/[facility] Co de Phone Number [facility] [place] [address] * (ABNORMAL) Blood Gas Venous ([facility]) (05/16/2023 4:22 AM EDT) pH, Venous 7.41 7.32 - 7.42 [facility] PCO2, Venous 32(L) 41 - 51 mmHg [facility] PO2, Venous 73(H) 25 - 40 mmHg [facility] Bicarbonate, Venous 19.6 mmol/L [facility] Base Excess, Venous -5.1 mmol/L [facility] Hgb Blood Gas 9.7(L) 11.7 - 15.5 g/dL [facility] Oxyhemoglobin, Venous 92.8 % [facility] Carboxyhemoglob in, Venous 0.1 % [facility] Comment: Nonsmokers: 0.5-1.5% COHB Smokers: Variable, but usually less than 10% Toxic: 20-30% COHB Lethal: Greater than 60% COHB Methemoglobin, Venous 0.3 <=1.5 % [facility] Na Whole Blood 130(L) 135 - 145 mmol/L [facility] K Whole Blood 3.7 3.5 - 5.0 mmol/L [facility] Comment: Please note: Patients with WBC >100,000 may have falsely elevated Potassium levels. Contact the Clinical Chemistry Laboratory if there are any questions. ICa Whole Blood 1.15 1.15 - 1.33 mmol/L [facility] Comment: Note: ??Total bilirubin higher than 20 mg/dL may lead to falsely low ionized calcium. CL Whole Blood 95(L) 98 - 107 mmol/L [facility] Gluc Whole Bld 82 65 - 199 mg/dL [facility] Comment:Diabetes: >=200 mg/d L plus symptoms Lactate WB 1.1 0.5 - 2.2 mmol/L [facility] Blood Gas Source Venous [facility] Blood Venous Draw / Unknown 05/16/2023 4:22 AM EDT 05/16/2023 4:31 AM EDT Narrative Resulting Agency Comment Spec In Lab Bonita TOBAR CHEMISTRY ORDERABLES [facility] [place] [address] * (ABNORMAL) Differential, Automated (05/16/2023 4:20 AM EDT) Neutrophil % 84.1 % [facility] Neutrophil Absolute 6.22(H) 1.70 - 6.10 x10(3)/mc L [facility] Lymph % 5.8 % [facility] Lymphocytes Abs 0.4(L) 0.9 - 3.2 x10(3)/mc L [facility] Monocyte % 8.8 % [facility] Monocyte Abs 0.6 0.3 - 0.9 x10(3)/mc L [facility] Eos % 0.4 % [facility] Eosinophils Abs 0.0 0.0 - 0.4 x10(3)/mc L [facility] Basophil % 0.0 % [facility] Baso Absolute 0.0 0.0 - 0.1 x10(3)/mc L [facility] Immature Gran % 0.90 % [facility] Comment: Immature granulocytes(IG's)percentage and absolute count will include metamyelocytes, myelocytes, and promyelocytes. Blood smears from CBCs yielding IG's will be scanned manually for concordance. If this scan disagrees with the automated IG or if promyelocytes are noted, a manual differential will be performed. Immature Gran Absolute 0.07(H) 0.00 - 0.04 x10(3)/mc L [facility] Blood 05/16/2023 4:20 AM EDT 05/16/2023 4:29 AM EDT Narrative Resulting Agency Comment Spec In Lab James Agustin MD HEMATOLOGY ORDER JODIE Performing Organization Address City/State/[facility] Co de Phone Number [facility] [place] [address] * (ABNORMAL) Hemogram (05/16/2023 4:20 AM EDT) White Blood Cell 7.4 4.0 - 9.5 x10(3)/mc L [facility] Red Blood Cell 2.40(L) 4.00 - 5.21 x10(6)/mc L [facility] Hemoglobin 7.8(L) 11.7 - 15.5 g/dL [facility] Hematocrit 22.5(L) 35.7 - 45.8 % [facility] Mean Cell Volume 93.8 82.6 - 94.4 fL [facility] Mean Cell Hemoglobin 32.5(H) 27.1 - 32.0 pg [facility] Mean Cell Hemoglobin Concentration 34.7 31.7 - 35.0 g/dL [facility] Platelet 120(L) 145 - 357 x10(3)/mc L [facility] RDW Standard Deviation 42.9 37.0 - 46.0 fL [facility] RDW coefficient of variation 12.9 11.5 - 14.1 % [facility] Mean Platelet Volume 11.3 7.6 - 12.9 fL [facility] NRBC% auto 0.7 % [facility] ITAL LABOR[facility] NRBC Absolute 0.050(H) 0.000 - 0.000 x10(3)/mc L [facility] Blood 05/16/2023 4:20 AM EDT 05/16/2023 4:29 AM EDT Narrative Resulting Agency Comment Spec In Lab James Agustin MD HEMATOLOGY ORDER JODIE [facility] [place] [address] * (ABNORMAL) Basic Metabolic Panel (non-fasting) (05/16/2023 4:20 AM EDT) Glucose 89 65 - 199 mg/dL [facility] Comment:Diabetes: >=200 mg/d L plus symptoms Blood Urea Nitrogen 108(H) 8 - 18 mg/dL [facility] Creatinine 4.74(H) 0.70 - 1.20 mg/dL [facility] Comment:result rechecked-OLIVA Sodium 132(L) 135 - 145 mmol/L [facility] Potassium 3.9 3.5 - 5.0 mmol/L [facility] Comment: Please note: ??Patients with WBC >100,000 may have falsely elevated Potassium levels. ??For accurate Potassium quantification in these patients send serum separator tube (gold top) for subsequent determinations. ??Contact the Clinical Chemistry Laboratory if there are any questions. Chloride 95(L) 98 - 107 mmol/L [facility] Carbon Dioxide 18(L) 22 - 31 mmol/L [facility] Anion Gap 19(H) 5 - 15 mmol/L [facility] Calcium 9.2 8.5 - 10.5 mg/dL [facility] Est Glomerular Filtration Rate 10(L) >=60 mL/min/1. 73 m?? [facility] Comment: This patient's estimated GFR [...] S Performing Organization Address [facility] Co de Phone Number [facility] [place] [address] * (ABNORMAL) Iron and TIBC (05/16/2023 4:20 AM EDT) Iron 31 30 - 150 mcg/dL [facility] TIBC 259 250 - 450 mcg/dL [facility] Iron Saturation 12(L) 20 - 50 % [facility] Blood 05/16/2023 4:20 AM EDT 05/16/2023 4:29 AM EDT Narrative Resulting Agency Comment Spec In Lab Kristopher Ayoub MD CHEMISTRY ORDERABLES Performing Organization Address [facility] Co de Phone Number [facility] [place] [address] * (ABNORMAL) Basic Metabolic Panel (non-fasting) (05/15/2023 12:50 AM EDT) Glucose 101 65 - 199 mg/dL [facility] Comment:Diabetes: >=200 mg/d L plus symptoms Blood Urea Nitrogen 109(H) 8 - 18 mg/dL [facility] Creatinine 5.62(H) 0.70 - 1.20 mg/dL [facility] Comment:result rechecked-[place] Sodium 131(L) 135 - 145 mmol/L [facility] Comment:result rechecked-[place] Potassium 3.7 3.5 - 5.0 mmol/L [facility] Comment: result rechecked-KS Please note: ??Patients with WBC >100,000 may have falsely elevated Potassium levels. ??For accurate Potassium quantification in these patients send serum separator tube (gold top) for subsequent determinations. ??Contact the Clinical Chemistry Laboratory if there are any questions. Chloride 92(L) 98 - 107 mmol/L [facility] Comment:result rechecked-[place] Carbon Dioxide 18(L) 22 - 31 mmol/L [facility] Comment:result rechecked-[place] Anion Gap 21(H) 5 - 15 mmol/L [facility] Calcium 8.9 8.5 - 10.5 mg/dL [facility] Est Glomerular Filtration Rate 8(L) >=60 mL/min/1. 73 m?? [facility] Comment: This patient's estimated GFR [...] HEALTH CARE SERVICES Co de Phone Number [facility] [place] [address] * (ABNORMAL) Hemogram (05/15/2023 12:50 AM EDT) White Blood Cell 9.1 4.0 - 9.5 x10(3)/mc L [facility] Red Blood Cell 2.19(L) 4.00 - 5.21 x10(6)/mc L [facility] Hemoglobin 7.2(L) 11.7 - 15.5 g/dL [facility] Hematocrit 20.6(L) 35.7 - 45.8 % [facility] Mean Cell Volume 94.1 82.6 - 94.4 fL [facility] Mean Cell Hemoglobin 32.9(H) 27.1 - 32.0 pg [facility] Mean Cell Hemoglobin Concentration 35.0 31.7 - 35.0 g/dL [facility] Platelet 109(L) 145 - 357 x10(3)/mc L [facility] RDW Standard Deviation 43.6 37.0 - 46.0 fL [facility] RDW coefficient of variation 12.9 11.5 - 14.1 % [facility] Mean Platelet Volume 10.4 7.6 - 12.9 fL [facility] NRBC% auto 2.1 % [facility] IT[facility]ORAT[facility] NRBC Absolute 0.190(H) 0.000 - 0.000 x10(3)/mc L [facility] Blood 05/15/2023 12:5 0 AM EDT 05/15/2023 12:52 AM EDT Narrative Resulting Agency Comment Spec In Lab Alirio Hudson MD HEMATOLOGY ORDERABL ES Performing Organization Address City/State/[facility] Co de Phone Number [facility] [place] [address] * (ABNORMAL) BLOOD GAS 2 VENOUS (05/15/2023 12:49 AM EDT) pH, Venous 7.33 7.32 - 7.42 [facility] PCO2, Venous 37(L) 41 - 51 mmHg [facility] PO2, Venous 34 25 - 40 mmHg [facility] Bicarbonate, Venous 19.1 mmol/L [facility] Base Excess, Venous -6.8 mmol/L [facility] Hgb Blood Gas 10.8(L) 11.7 - 15.5 g/dL [facility] Oxyhemoglobin, Venous 58.1 % [facility] Carboxyhemoglob in, Venous 0.3 % [facility] Comment: Nonsmokers: 0.5-1.5% COHB Smokers: Variable, but usually less than 10% Toxic: 20-30% COHB Lethal: Greater than 60% COHB Methemoglobin, Venous 0.6 <=1.5 % [facility] Na Whole Blood 136 135 - 145 mmol/L [facility] K Whole Blood 3.7 3.5 - 5.0 mmol/L [facility] Comment: Please note: Patients with WBC >100,000 may have falsely elevated Potassium levels. Contact the Clinical Chemistry Laboratory if there are any questions. ICa Whole Blood 1.12(L) 1.15 - 1.33 mmol/L [facility] Comment: Note: ??Total bilirubin higher than 20 mg/dL may lead to falsely low ionized calcium. CL Whole Blood 95(L) 98 - 107 mmol/L [facility] Gluc Whole Bld 101 65 - 199 mg/dL [facility] Comment:Diabetes: >=200 mg/d L plus symptoms Lactate WB 1.3 0.5 - 2.2 mmol/L [facility] Flow, Mike 1.0 LPM [facility] Blood Gas Source Venous [facility] Blood 05/15/2023 12:4 9 AM EDT 05/15/2023 12:49 AM EDT Alirio Hudson MD POINT OF CARE TEST ORDERABLES Performing Organization Address City/State/[facility] Co de Phone Number [facility] [place] [address] * US Retroperitoneal Complete (05/14/2023 3:53 PM [...] PM Electronically signed by: Hayden Robledo MD, [facility] ([phone]), at 05/14/2023 4:32 PM Thank you for letting us participate in the care of this patient. If you are a health care provider and have any questions regarding this report, please contact the number above. For patients who have questions, please contact the health care management assistant that requested your imaging first. ? Hayden Robledo, Staff Physician Electronically Signed Final Report ?? 05/14/2023 04:39 pm Narrative 05/14/2023 4:39 PM EDT Renal ? (Signed Final 05/14/2023 04:39 pm) PATIENT INFO: ID #: ? [id number] ?: ??55 (67 yrs)(F) Name: ? PURNIMA THACKER ?Visit Date: 05/14/2023 03:44 pm PERFORMED BY: Attending: ?Meena CULP, Hayden Stafford Resident: ? Nell CULP, Anand August Performed By: ? Consuelo Tello RDMS Referred By: ?ALIRIO Powell BECCA Location: ? [place] SERVICE(S) PROVIDED: URETRO - Retroperitoneal Complete - [id number] ? [id number] INDICATIONS: EVANS COMPARISON: CT: Abdomen/Pelvis 05/11/23 RIGHT [...] 05/14/2023 04:39 pm) PATIENT INFO: ID #: [id number] : 55 (67 yrs)(F) Name: PURNIMA THACKER Visit Date: 05/14/2023 03:44 pm PERFORMED BY: Attending: Hayden Robledo MD Resident: Anand Camejo MD Performed By: Consuelo Tlelo RDMS Referred By: ALIRIO HUDSON Location: [place] SERVICE(S) PROVIDED: URETRO - Retroperitoneal Complete - [id number] INDICATIONS: EVANS COMPARISON: CT: Abdomen/Pelvis 05/11/23 RIGHT [...] PM Electronically signed by: Hayden Robledo MD, [facility] ([phone]), at 05/14/2023 4:32 PM Thank you for letting us participate in the care of this patient. If you are a health care provider and have any questions regarding this report, please contact the number above. For patients who have questions, please contact the health care management assistant that requested your imaging first. Hayden Robledo, Staff Physician Electronically Signed Final Report 05/14/2023 04:39 pm Alirio Hudson MD IMG US GEN ORDERABL ES * CK (05/14/2023 3:17 PM EDT) Pathologist [facility] Creatine Kinase 123 0 - 160 unit/L [facility] Blood 05/14/2023 3:17 PM EDT 05/14/2023 3:31 PM EDT Narrative Resulting Agency Comment Spec In Lab Alirio Hudson MD CHEMISTRY ORDERABLE S Performing Organization Address City/[facility]/ZIP Co de Phone Number [facility] [place] [address] * (ABNORMAL) Uric acid (05/14/2023 3:17 PM EDT) [facility] Uric Acid 14.9(H) 2.5 - 6.5 mg/dL [facility] Blood 05/14/2023 3:17 PM EDT 05/14/2023 3:31 PM EDT Narrative Resulting Agency Comment Spec In Lab Alirio Hudson MD CHEMISTRY ORDERABLE S Performing Organization Address [facility] Co de Phone Number [facility] [place] [address] * (ABNORMAL) Osmolality (05/14/2023 3:17 PM EDT) Pathologist [facility] Osmolality 311(H) 275 - 295 mOsm/kg [facility] Blood 05/14/2023 3:17 PM EDT 05/14/2023 3:31 PM EDT Narrative Resulting Agency Comment Spec In Lab Alirio Hudson MD CHEMISTRY ORDERABLE S Performing Organization Address [facility] Co de Phone Number [facility] [place] [address] * (ABNORMAL) Differential, Automated (05/14/2023 1:10 AM EDT) Neutrophil % 87.2 % [facility] Neutrophil Absolute 9.74(H) 1.70 - 6.10 x10(3)/mc L [facility] Lymph % 3.9 % [facility] Lymphocytes Abs 0.4(L) 0.9 - 3.2 x10(3)/mc L [facility] Monocyte % 7.9 % [facility] ITAL [facility]OR[facility] Monocyte Abs 0.9 0.3 - 0.9 x10(3)/ L [facility] Eos % 0.0 % [facility] Eosinophils Abs 0.0 0.0 - 0.4 x10(3)/ L [facility] Basophil % 0.1 % [facility] ITAL [facility]ORATORY Baso Absolute 0.0 0.0 - 0.1 x10(3)/ L [facility] Immature Gran % 0.90 % [facility] Comment: Immature granulocytes(IG's)percentage and absolute count will include metamyelocytes, myelocytes, and promyelocytes. Blood smears from CBCs yielding IG's will be scanned manually for concordance. If this scan disagrees with the automated IG or if promyelocytes are noted, a manual differential will be performed. Immature Gran Absolute 0.10(H) 0.00 - 0.04 x10(3)/ L [facility] Blood 05/14/2023 1:10 AM EDT 05/14/2023 1:24 AM EDT Narrative Resulting Agency Comment Spec In Lab Bonita TOBAR HEMATOLOGY ORDERABLE S Performing Organization Address City/State/[facility] Co de Phone Number [facility] [place] [address] * (ABNORMAL) Hemogram (05/14/2023 1:10 AM EDT) White Blood Cell 11.2(H) 4.0 - 9.5 x10(3)/mc L [facility] Red Blood Cell 2.19(L) 4.00 - 5.21 x10(6)/ L [facility] Hemoglobin 7.2(L) 11.7 - 15.5 g/dL [facility] Hematocrit 20.3(L) 35.7 - 45.8 % [facility] Mean Cell Volume 92.7 82.6 - 94.4 fL [facility] Mean Cell Hemoglobin 32.9(H) 27.1 - 32.0 pg [facility] Mean Cell Hemoglobin Concentration 35.5(H) 31.7 - 35.0 g/dL [facility] Platelet 112(L) 145 - 357 x10(3)/mc L [facility] RDW Standard Deviation 41.4 37.0 - 46.0 fL [facility] RDW coefficient of variation 12.5 11.5 - 14.1 % [facility] Mean Platelet Volume 10.4 7.6 - 12.9 fL [facility] NRBC% auto 1.5 % [facility] ITAL LABORATORY NRBC Absolute 0.170(H) 0.000 - 0.000 x10(3)/mc L [facility] Blood 05/14/2023 1:10 AM EDT 05/14/2023 1:24 AM EDT Narrative Resulting Agency Comment Spec In Lab Bonita TOBAR HEMATOLOGY ORDERABLE S Performing Organization Address City/State/[facility] Co de Phone Number [facility] [place] [address] * (ABNORMAL) Comprehensive metabolic panel (non-fasting) (05/14/2023 1:10 AM EDT) Glucose 120 65 - 199 mg/dL [facility] Comment:Diabetes: >=200 mg/d L plus symptoms Blood Urea Nitrogen 98(H) 8 - 18 mg/dL [facility] Creatinine 4.80(H) 0.70 - 1.20 mg/dL [facility] Comment:result rechecked-ssc Sodium 132(L) 135 - 145 mmol/L [facility] Potassium 4.1 3.5 - 5.0 mmol/L [facility] Comment: Please note: ??Patients with WBC >100,000 may have falsely elevated Potassium levels. ??For accurate Potassium quantification in these patients send serum separator tube (gold top) for subsequent determinations. ??Contact the Clinical Chemistry Laboratory if there are any questions. Chloride 94(L) 98 - 107 mmol/L [facility] Carbon Dioxide 18(L) 22 - 31 mmol/L [facility] Anion Gap 20(H) 5 - 15 mmol/L [facility] Calcium 8.5 8.5 - 10.5 mg/dL [facility] Protein, Total 5.8(L) 6.1 - 8.0 g/dL [facility] Albumin 3.6 3.2 - 5.2 g/dL [facility] Aspartate Aminotransferase 319(H) 0 - 30 unit/L [facility] Alanine Aminotransferase 437(H) 0 - 30 unit/L [facility] Alkaline Phosphatase 86 35 - 105 unit/L [facility] Bilirubin, Total 0.4 0.2 - 1.3 mg/dL [facility] Est Glomerular Filtration Rate 9(L) >=60 mL/min/1. 73 m?? [facility] Comment: This patient's estimated GFR [...] MD CHEMISTRY ORDERABLE S Performing Organization Address City/[facility] [place] [address] * APTT (05/13/2023 10:15 AM EDT) Partial Thromboplastin Time 27 25 - 37 sec [facility] Comment: The PTT is NOT [...] City/[facility]/ZIP Co de Phone Number [facility] [place] [address] * (ABNORMAL) Prothrombin Time (05/13/2023 10:15 AM EDT) Prothrombin Time 14.6(H) 9.4 - 12.5 sec [facility] International Normalization Ratio 1.3 [facility] Comment: An INR <2.0 indicates [...] Lab Alirio Hudson MD HEMATOLOGY ORDERABL ES [facility] [place] [address] * EKG 12 Lead (05/13/2023 9:22 AM EDT) Ventricular rate 92 BPM MUSE SYSTEM Atrial Rate 92 BPM MUSE SYSTEM P-R Interval 140 ms MUSE SYSTEM QRS Duration 104 ms MUSE SYSTEM Q-T Interval 384 ms MUSE SYSTEM QTC Calculated (Bezet) 474 ms MUSE SYSTEM Calculated P [place] 33 degrees MUSE SYSTEM Calculated R [place] 41 degrees MUSE SYSTEM Calculated T [place] -35 degrees MUSE SYSTEM INTERPRETATION Sinus rhythm with frequent Premature ventricular complexes Septal infarct , age undetermined ST & T wave abnormality, consider lateral ischemia Abnormal ECG When compared with ECG of 12-MAY-2023 10:10, Premature ventricular complexes are now Present I personally reviewed the tracing and edited the fellows interpretation Confirmed by fellow MD Anitha, Carissa ([id number]) on 05/13/2023 3:25:30 PM Confirmed by Maxx Best ([id number]) on 05/13/2023 8:30:56 PM MUSE SYSTEM 05/13/2023 9:22 AM EDT 05/13/2023 8:30 PM EDT Alirio Hudson MD ECG ORDERABLES MUSE SYSTEM * (ABNORMAL) Differential, Automated (05/13/2023 1:15 AM EDT) Neutrophil % 88.1 % [facility] Neutrophil Absolute 7.62(H) 1.70 - 6.10 x10(3)/mc L [facility] Lymph % 3.1 % [facility] Lymphocytes Abs 0.3(L) 0.9 - 3.2 x10(3)/mc L [facility] Monocyte % 7.9 % [facility] Monocyte Abs 0.7 0.3 - 0.9 x10(3)/mc L [facility] Eos % 0.0 % [facility] Eosinophils Abs 0.0 0.0 - 0.4 x10(3)/mc L [facility] Basophil % 0.1 % [facility] Baso Absolute 0.0 0.0 - 0.1 x10(3)/mc L [facility] Immature Gran % 0.80 % [facility] Comment: Immature granulocytes(IG's)percentage and absolute count will include metamyelocytes, myelocytes, and promyelocytes. Blood smears from CBCs yielding IG's will be scanned manually for concordance. If this scan disagrees with the automated IG or if promyelocytes are noted, a manual differential will be performed. Immature Gran Absolute 0.07(H) 0.00 - 0.04 x10(3)/mc L [facility] Blood 05/13/2023 1:15 AM EDT 05/13/2023 1:29 AM EDT Narrative Resulting Agency Comment Spec In Lab Lorri TOBAR HEMATOLOGY ORDERABLE S [facility] [place] [address] * (ABNORMAL) Hemogram (05/13/2023 1:15 AM EDT) White Blood Cell 8.6 4.0 - 9.5 x10(3)/mc L [facility] Red Blood Cell 2.37(L) 4.00 - 5.21 x10(6)/mc L [facility] Hemoglobin 7.8(L) 11.7 - 15.5 g/dL [facility] Hematocrit 22.2(L) 35.7 - 45.8 % [facility] Mean Cell Volume 93.7 82.6 - 94.4 fL [facility] Mean Cell Hemoglobin 32.9(H) 27.1 - 32.0 pg [facility] Mean Cell Hemoglobin Concentration 35.1(H) 31.7 - 35.0 g/dL [facility] Platelet 130(L) 145 - 357 x10(3)/mc L [facility] RDW Standard Deviation 41.7 37.0 - 46.0 fL [facility] RDW coefficient of variation 12.5 11.5 - 14.1 % [facility] Mean Platelet Volume 10.2 7.6 - 12.9 fL [facility] NRBC% auto 0.5 % [facility]AL [facility]ORAT[facility] NRBC Absolute 0.040(H) 0.000 - 0.000 x10(3)/mc L [facility] Blood 05/13/2023 1:15 AM EDT 05/13/2023 1:29 AM EDT Narrative Resulting Agency Comment Spec In Lab Lorri TOBAR HEMATOLOGY ORDERABLE S [facility] [place] [address] * (ABNORMAL) Hepatic Function Panel (05/13/2023 1:15 AM EDT) Protein, Total 5.5(L) 6.1 - 8.0 g/dL [facility] Albumin 3.0(L) 3.2 - 5.2 g/dL [facility] Aspartate Aminotransferase 792(H) 0 - 30 unit/L [facility] Alanine Aminotransferase 903(H) 0 - 30 unit/L [facility] Alkaline Phosphatase 85 35 - 105 unit/L [facility] Bilirubin, Total 0.5 0.2 - 1.3 mg/dL [facility] Bilirubin, Direct 0.3 0.0 - 0.3 mg/dL [facility] Blood 05/13/2023 1:15 AM EDT 05/13/2023 1:29 AM EDT Narrative Resulting Agency Comment Spec In Lab Alirio Hudson MD CHEMISTRY ORDERABLE S [facility] [place] [address] * (ABNORMAL) Basic Metabolic Panel (non-fasting) (05/13/2023 1:15 AM EDT) Glucose 107 65 - 199 mg/dL [facility] Comment:Diabetes: >=200 mg/d L plus symptoms Blood Urea Nitrogen 82(H) 8 - 18 mg/dL [facility] Creatinine 3.15(H) 0.70 - 1.20 mg/dL [facility] Comment:result rechecked-OG Sodium 132(L) 135 - 145 mmol/L [facility] Potassium 3.8 3.5 - 5.0 mmol/L [facility] Comment: Please note: ??Patients with WBC >100,000 may have falsely elevated Potassium levels. ??For accurate Potassium quantification in these patients send serum separator tube (gold top) for subsequent determinations. ??Contact the Clinical Chemistry Laboratory if there are any questions. Chloride 95(L) 98 - 107 mmol/L [facility] Carbon Dioxide 20(L) 22 - 31 mmol/L [facility] Anion Gap 17(H) 5 - 15 mmol/L [facility] Calcium 8.3(L) 8.5 - 10.5 mg/dL [facility] Est Glomerular Filtration Rate 16(L) >=60 mL/min/1. 73 m?? [facility] Comment: This patient's estimated GFR [...] Lab Alirio Hudson MD CHEMISTRY ORDERABLE S [facility] [place] [address] * (ABNORMAL) BLOOD GAS 2 ARTERIAL (05/12/2023 3:57 PM EDT) pH, Arterial 7.39 7.35 - 7.45 [facility] PCO2, Arterial 33(L) 35 - 45 mmHg [facility] PO2, Arterial 101 85 - 104 mmHg [facility] Bicarbonate, Arterial 19.5(L) 20.0 - 26.0 mmol/L [facility] Base Excess, Arterial -5.5(L) -3.0 - 3.0 mmol/L [facility] Hgb Blood Gas 9.8(L) 11.7 - 15.5 g/dL [facility] Oxyhemoglobin, Arterial 95.2 94.0 - 97.0 % [facility] Carboxyhemoglob in, Arterial 0.2 % [facility] Comment: Nonsmokers: 0.5-1.5% COHB Smokers: Variable, but usually less than 10% Toxic: 20-30% COHB Lethal: Greater than 60% COHB Methemoglobin, Arterial 0.8 <=1.5 % [facility] Na Whole Blood 129(L) 135 - 145 mmol/L [facility] K Whole Blood 3.8 3.5 - 5.0 mmol/L [facility] Comment: Please note: Patients with WBC >100,000 may have falsely elevated Potassium levels. Contact the Clinical Chemistry Laboratory if there are any questions. ICa Whole Blood 1.05(L) 1.15 - 1.33 mmol/L [facility] Comment: Note: ??Total bilirubin higher than 20 mg/dL may lead to falsely low ionized calcium. CL Whole Blood 96(L) 98 - 107 mmol/L [facility] Gluc Whole Bld 178 65 - 199 mg/dL [facility] Comment:Diabetes: >=200 mg/d L plus symptoms. Lactate WB 1.5 0.5 - 2.2 mmol/L [facility] FIO2 Art 40 % [facility] PF Ratio Art 252 [facility] Blood 05/12/2023 3:57 PM EDT 05/12/2023 3:57 PM EDT Alirio Hudson MD POINT OF CARE TEST ORDERABLES Performing Organization Address [facility] Co de Phone Number [facility] [place] [address] * (ABNORMAL) Coox2 (05/12/2023 2:25 PM EDT) pO2, Coox 37 mmHg [facility] Hgb Blood Gas 9.5(L) 11.7 - 15.5 g/dL [facility] Oxyhemoglobin, Coox 59.9 % [facility] Carboxyhemoglo bin, Coox 0.3 % [facility] Comment: Nonsmokers: 0.5-1.5% COHB Smokers: Variable, but usually less than 10% Toxic: 20-30% COHB Lethal: Greater than 60% COHB Methemoglobin, Coox 0.7 <=1.5 % [facility] Source Coox Mixed Venous [facility] Blood 05/12/2023 2:25 PM EDT 05/12/2023 2:25 PM EDT Alirio Hudson MD POINT OF CARE TEST ORDERABLES Performing Organization Address City/[facility] Co de Phone Number [facility] [place] [address] * (ABNORMAL) BLOOD GAS 2 ARTERIAL (05/12/2023 2:23 PM EDT) pH, Arterial 7.37 7.35 - 7.45 [facility] PCO2, Arterial 36 35 - 45 mmHg [facility] PO2, Arterial 102 85 - 104 mmHg [facility] Bicarbonate, Arterial 20.4 20.0 - 26.0 mmol/L [facility] Base Excess, Arterial -4.8(L) -3.0 - 3.0 mmol/L [facility] Hgb Blood Gas 12.7 11.7 - 15.5 g/dL [facility] Oxyhemoglobin, Arterial 95.4 94.0 - 97.0 % [facility] Carboxyhemoglob in, Arterial 0.3 % [facility] Comment: Nonsmokers: 0.5-1.5% COHB Smokers: Variable, but usually less than 10% Toxic: 20-30% COHB Lethal: Greater than 60% COHB Methemoglobin, Arterial 0.7 <=1.5 % [facility] Na Whole Blood 129(L) 135 - 145 mmol/L [facility] K Whole Blood 3.7 3.5 - 5.0 mmol/L [facility] Comment: Please note: Patients with WBC >100,000 may have falsely elevated Potassium levels. Contact the Clinical Chemistry Laboratory if there are any questions. ICa Whole Blood 1.05(L) 1.15 - 1.33 mmol/L [facility] Comment: Note: ??Total bilirubin higher than 20 mg/dL may lead to falsely low ionized calcium. CL Whole Blood 95(L) 98 - 107 mmol/L [facility] Gluc Whole Bld 168 65 - 199 mg/dL [facility] Comment:Diabetes: >=200 mg/d L plus symptoms. Lactate WB 1.8 0.5 - 2.2 mmol/L [facility] FIO2 Art 40 % [facility] PF Ratio Art 255 [facility] Blood 05/12/2023 2:23 PM EDT 05/12/2023 2:23 PM EDT Alirio Hudson MD POINT OF CARE TEST ORDERABLES Performing Organization Address City/State/[facility] Co de Phone Number [facility] [address] * (ABNORMAL) Troponin (05/12/2023 2:05 PM EDT) Troponin-T, High Sensitivity 1,022(H) <=14 ng/L [facility] Comment: This patient's troponin T [...] troponin value can be found in the [facility] Laboratory Test Catalog Troponin - [facility] Laboratory Test Catalog Reference: Fourth Olds Definition of Myocardial Infarction. Journal of the [employer] 2018;72:2584-2417 Blood 05/12/2023 2:05 PM EDT 05/12/2023 2:14 PM EDT Narrative Resulting Agency Comment Spec In Lab Alirio Hudson MD CHEMISTRY ORDERABLE S Performing Organization Address [facility] Co de Phone Number [facility] [place] [address] * (ABNORMAL) Hemoglobin (05/12/2023 2:05 PM EDT) Hemoglobin 8.5(L) 11.7 - 15.5 g/dL [facility] Blood 05/12/2023 2:05 PM EDT 05/12/2023 2:14 PM EDT Narrative Resulting Agency Comment Spec In Lab Alirio Hudson MD HEMATOLOGY ORDERABL ES Performing Organization Address [facility] Co de Phone Number [facility] [place] [address] * Potassium (05/12/2023 2:05 PM EDT) Potassium 3.9 3.5 - 5.0 mmol/L [facility] Comment: Please note: ??Patients with [...] HEALTH CARE SERVICES Co de Phone Number [facility] [place] [address] * (ABNORMAL) BLOOD GAS 2 ARTERIAL (05/12/2023 11:05 AM EDT) pH, Arterial 7.34(L) 7.35 - 7.45 [facility] PCO2, Arterial 42 35 - 45 mmHg [facility] PO2, Arterial 73(L) 85 - 104 mmHg [facility] Bicarbonate, Arterial 22.1 20.0 - 26.0 mmol/L [facility] Base Excess, Arterial -3.6(L) -3.0 - 3.0 mmol/L [facility] Hgb Blood Gas 9.3(L) 11.7 - 15.5 g/dL [facility] Oxyhemoglobin, Arterial 89.3(L) 94.0 - 97.0 % [facility] Carboxyhemoglob in, Arterial 0.2 % [facility] Comment: Nonsmokers: 0.5-1.5% COHB Smokers: Variable, but usually less than 10% Toxic: 20-30% COHB Lethal: Greater than 60% COHB Methemoglobin, Arterial 0.9 <=1.5 % [facility] Na Whole Blood 131(L) 135 - 145 mmol/L [facility] K Whole Blood 3.8 3.5 - 5.0 mmol/L [facility] Comment: Please note: Patients with WBC >100,000 may have falsely elevated Potassium levels. Contact the Clinical Chemistry Laboratory if there are any questions. ICa Whole Blood 1.04(L) 1.15 - 1.33 mmol/L [facility] Comment: Note: ??Total bilirubin higher than 20 mg/dL may lead to falsely low ionized calcium. CL Whole Blood 96(L) 98 - 107 mmol/L [facility] Gluc Whole Bld 152 65 - 199 mg/dL [facility] Comment:Diabetes: >=200 mg/d L plus symptoms. Lactate WB 2.8(H) 0.5 - 2.2 mmol/L [facility] FIO2 Art 40 % [facility] PF Ratio Art 182 [facility] Blood 05/12/2023 11:0 5 AM EDT 05/12/2023 11:05 AM EDT Alirio Hudson MD POINT OF CARE TEST ORDERABLES [facility] [address] [place] [address] * (ABNORMAL) BLOOD GAS 2 ARTERIAL (05/12/2023 10:14 AM EDT) pH, Arterial 7.18(Criti gabrielle) 7.35 - 7.45 [facility] Comment:Noted by instrumentation manager. PCO2, Arterial 45 35 - 45 mmHg [facility] PO2, Arterial 186(H) 85 - 104 mmHg [facility] Bicarbonate, Arterial 16.2(L) 20.0 - 26.0 mmol/L [facility] Base Excess, Arterial -12.2(L) -3.0 - 3.0 mmol/L [facility] Hgb Blood Gas 10.0(L) 11.7 - 15.5 g/dL [facility] Oxyhemoglobin, Arterial 97.0 94.0 - 97.0 % [facility] Carboxyhemoglob in, Arterial 0.2 % [facility] Comment: Nonsmokers: 0.5-1.5% COHB Smokers: Variable, but usually less than 10% Toxic: 20-30% COHB Lethal: Greater than 60% COHB Methemoglobin, Arterial 0.9 <=1.5 % [facility] Na Whole Blood 129(L) 135 - 145 mmol/L [facility] K Whole Blood 3.6 3.5 - 5.0 mmol/L [facility] Comment: Please note: Patients with WBC >100,000 may have falsely elevated Potassium levels. Contact the Clinical Chemistry Laboratory if there are any questions. ICa Whole Blood 1.10(L) 1.15 - 1.33 mmol/L [facility] Comment: Note: ??Total bilirubin higher than 20 mg/dL may lead to falsely low ionized calcium. CL Whole Blood 97(L) 98 - 107 mmol/L [facility] Gluc Whole Bld 161 65 - 199 mg/dL [facility] Comment:Diabetes: >=200 mg/d L plus symptoms. Lactate WB 3.3(H) 0.5 - 2.2 mmol/L [facility] FIO2 Art 100 % [facility] PF Ratio Art 186 [facility] Blood 05/12/2023 10:1 4 AM EDT 05/12/2023 10:14 AM EDT Alirio Hudson MD POINT OF CARE TEST ORDERABLES Performing Organization Address City/[facility] Co de Phone Number [facility] [address] * EKG 12 Lead (05/12/2023 10:10 AM EDT) Ventricular rate 116 BPM MUSE SYSTEM Atrial Rate 116 BPM MUSE SYSTEM P-R Interval 158 ms MUSE SYSTEM QRS Duration 114 ms MUSE SYSTEM Q-T Interval 348 ms MUSE SYSTEM QTC Calculated (Bezet) 483 ms MUSE SYSTEM Calculated P [place] 37 degrees MUSE SYSTEM Calculated R [place] 31 degrees MUSE SYSTEM Calculated T [place] -138 degrees MUSE SYSTEM INTERPRETATION Sinus tachycardia [...] interpretation Confirmed by fellow MD Anuja, Jim ([id number]) on 05/12/2023 1:04:20 PM Confirmed by MD Villareal Danette ([id number]) on 05/12/2023 9:28:34 PM MUSE SYSTEM 05/12/2023 [...] have questions please contact the health care management assistant that requested your imaging first. ? Electronically signed by: Chyna Johnson MD, [facility] ??([phone]), at 05/12/2023 10:08 AM Narrative 05/12/2023 10:08 AM EDT EXAMINATION: XR CHEST ONE VIEW CLINICAL HISTORY: Post TAVR TECHNIQUE: 1 view of the chest COMPARISON: Chest radiograph from earlier today FINDINGS: Interval placement of endotracheal tube with tip terminating 2 cm above the shira. Interval placement of enteric tube projecting along the expected course of the esophagus and outside the druxr-og-ockf. Interval retraction of right IJ approach pulmonary [...] expected course ofthe esophagus and outside the qldjg-tt-ettz. Interval retraction of right IJ approach pulmonary [...] who have questions please contactthe health care management assistant that requested your imaging first. Electronically signed by: Chyna Johnson MD, [facility]([phone]), at 05/12/2023 10:08 AM Alirio Hudson MD IMG DX ORDERABLES * ECHO LMTD W/O CONTRAST W LMTD SPEC DOPP COLOR DOPP (05/12/2023 9:23 AM EDT) EF 20 HEART[facility] SYSTEM Anatomical Region Laterality Modality Cardiac Other 05/12/2023 7:33 AM EDT Narrative 05/12/2023 10:18 AM EDT ? Echocardiogram Report Name: PURNIMA THACKER ?Study Date: 05/12/2023 07:33 AMBP: 96/63 mmHg ? Patient Location: [place] CA06 A : 1955 ? Height: 154 cm ? Account: [id number] Age: 67 yrs ? Weight: 75 kg Gender: Female ?BSA: 1.7 m2 Ordering Physician: RADHA HOLLINS Referring Physician: RADHA HOLLINS Performed By: Dilma Bee RDCS Reason For Study: Guidance for TAVR procedure Exam Location: [facility]. Interpretation Summary PRE TAVR: There is [...] mL/m2. POST TAVR: Normal function of the hvlua-vh-mudbu prosthesis. See below for hemodynamic parameters. Slight improvement in left and right ventricular systolic function. LVEF now 20-25%. No pericardial effusion. See report for additional findings. Procedure Limited - 60544. Doppler - 56880. Color Doppler - 44543. Left Ventricle Left ventricle is of normal [...] Date: 307:33 AMBP: 96/63 mmHg Patient Location: [address] : 1955 Height: 154 cm Account: [id number] Age: 67 yrs Weight: 75 kg Gender: Female BSA: 1.7 m2 Ordering Physician: RADHA HOLLINS Referring Physician: RADHA HOLLINS Performed By: Dilma Bee RDCS Reason For Study: Guidance for TAVR procedure Exam Location: [facility]. Interpretation Summary PRE TAVR: There is [...] 28mL/m2. POST TAVR: Normal function of the czajg-ak-ycwiy prosthesis. See belowfor hemodynamic parameters. Slight improvement in left and right ventricularsystolic function. LVEF now 20-25%. No pericardial effusion. See report for additional findings. Procedure Limited - 07810. Doppler - 05036. Color Doppler - 00582. Left Ventricle Left ventricle is of normal [...] Modality Other Narrative 05/12/2023 2:37 PM EDT ?[facility] ? Cardiac Catheterization/Intervention Report ? Patient Name: Kirstie, Purnima M. ? Procedure Date: 05/12/2023 ? A #: [id number] ? Primary Physician: Antelmo Sharma ? Case #: [id number] ? File Name: [id number] ? Catheterization Order Number: [id number] ? [facility] ? Final Report [place], [place] ? Patient Name: ? Purnima M. Kirstie ? ID#: ?[id number] ? : ?1955 ? Procedure Date: ? May 12, 2023 ? Case #: ? [id number] ? Room: ? 6 ? Case Physicians: ?Antelmo Sharma M.D. ?Start: ?08:03 ?Alirio Hudson M.D. ?Admission: ??05/08/2023 ?Lynda Mcgowan M.D. ? Discharge: ??05/22/2023 ?Fellow: ? Rebekah Tejeda M.D. ? Referring Physician: ??Mario Alberto Chin M.D. ? Procedures: ?* Coronary Angiography ?* Left Heart Catheterization ?* Coronary Stent Insertion ?* Transcatheter Aortic Valve Replacement ?* Vascular Closure Device Deployment ?* Temporary Pacemaker Insertion In Clam Sorter ?* Endotracheal Intubation By Non-Cath Physician ?* [...] was designated as ASA Class IV. The [facility] clinical ?frailty scale is 4: Vulnerable. ? [...] guide. ??A premounted 4.00 x 30 mm Pe Ell Dickerson (MINNA) was ? deployed with a maximum [...] calculated STS risk score was 30.1%. A hzrwz-no-daynu ?procedure was performed on the pre-existing bioprosthetic stented ?prosthesis. The priority of the zgnpy-qu-vcfmw procedure was Elective. ?The procedure was performed [...] Lai 3 Ultra RESILIA 23 mm THV (s/u=[id number]) transcatheter ?valve was inserted using standard technique. [...] to nor was it given in the ?label stamper. ?Recommended anti-platelet/anti-thrombotic regimen: ?Continue aspirin 81 mg daily for indefinitely. ?These recommendations are made at the time of the intervention. Patient ?and provider preferences or a changing clinical situation may require ?modification of this regimen. Consult [facility] for ?questions. ? Conclusions: ?* [...] regimen. ? Comments: ?Successful right transfemoral TAVR Wiclt-gt-Ttxpv with a 23 mm Lai 3 ?THV. [...] insertion-coronary, access site angiography, ?temporary pacemaker in label stamper, intubation-non cath physician, vascular ?closure device, transthoracic echo ??and TAVR. Dr. Alirio Hudson M.D. ?performed the left heart catheterization, access site angiography, ?temporary pacemaker in label stamper, vascular closure device, transthoracic ?echo , TAVR and CPR during cath. Dr. Lynda Mcgowan M.D. performed the ABG, ?anesthesia and intubation-non cath physician. ? Antelmo Sharma M.D. ? Electronically Signed by: Antelmo Sharma M.D. ? Report Finalized: 05/12/2023 ??14:31 ? Report Last Ammended: 07/01/2023 ??11:30 ? Procedure Note Antelmo Sharma MD - 07/01/2023 [facility] Cardiac Catheterization/Intervention Report Patient Name: Purnima Thacker Procedure Date: 05/12/2023 A #: [id number] Primary Physician: Antelmo Sharma Case #: [id number] File Name: [id number] Catheterization Order Number: [id number] [facility] FinalReport [place], [place] Patient Name: Purnima Thacker ID#:[id number] :1955 Procedure Date: May 12, 2023 Case #: [id number] Room: 6 Case Physicians: Antelmo Sharma M.D. Start: 08:03 Alirio Hudson M.D. Admission:05/08/2023 Lynda Mcgowan M.D. Discharge:05/22/2023 Fellow: Rebekah Tejeda M.D. Referring Physician: Mario Alberto Chin M.D. Procedures: * Coronary Angiography * Left Heart Catheterization * Coronary Stent Insertion * Transcatheter Aortic Valve Replacement * Vascular Closure Device Deployment * Temporary Pacemaker Insertion In Clam Sorter * Endotracheal Intubation By Non-Cath Physician * [...] guide. A premounted 4.00 x 30 mm Pe Ell Dickerson (MINNA) was deployed with a maximum inflation [...] calculated STS risk score was 30.1%. A dbfku-ld-qkigq procedure was performed on the pre-existing bioprosthetic stented prosthesis. The priority of the afbtz-ca-yfhjn procedure wasElective. The procedure was performed under Moderate sedation performed byLynda Mcgowan M.D. (see anesthesia report for additional details). Alirio Hudson M.D. participated in the case (see Cardiac Surgery reportfor additional details). The TAVR sheath was a 14 Fr Corona eSheath Introducer and theaccess site was femoral. Rapid ventricular pacing was performed. An Corona Lai 3 Ultra RESILIA 23 mm THV (s/o=[id number])transcatheter valve was inserted using standard technique. The [...] prior to nor was it given inthe label stamper. Recommended anti-platelet/anti-thrombotic regimen: Continue aspirin 81 mg daily for indefinitely. These recommendations are made at the time of the intervention.Patient and provider preferences or a changing clinical situation mayrequire modification of this regimen. Consult [facility] questions. Conclusions: * Nonobstructive disease [...] this regimen. Comments: Successful right transfemoral TAVR Otant-jd-Qidzi with a 23 mmSapien 3 THV. We [...] insertion-coronary, access site angiography, temporary pacemaker in label stamper, intubation-non cath physician,vascular closure device, transthoracic echo and TAVR. Dr. Alirio Hudson M.D. performed the left heart catheterization, access site angiography, temporary pacemaker in label stamper, vascular closure device,transthoracic echo , TAVR and [...] pH, POC 7.20(Crit ical) 7.35 - 7.45 [facility] Comment:Critical value OK, C C Lab. pCO2, POC 42 35 - 45 mmHg [facility] pO2, POC 260(H) 85 - 104 mmHg [facility] Base Excess, POC -11.0(L) -3.0 - 3.0 mmol/L [facility] Bicarbonate, POC 16.7(L) 20.0 - 26.0 mmol/L [facility] Sodium, POC 129(L) 135 - 145 mmol/L [facility] POC Potassium 3.8 3.5 - 5.0 mmol/L [facility] Ionized Calcium, POC 1.12(L) 1.15 - 1.33 mmol/L [facility] POC Hematocrit 23.0(L) 34.0 - 45.0 % [facility] POC Calc Hgb 7.8(L) 11.2 - 15.7 g/dL [facility] Comment:The calculation of h emoglobin from hematocrit assumes a normal MCHC. POC Bgas Loc CC Lab [facility] Blood 05/12/2023 8:50 AM EDT 05/13/2023 12:00 PM EDT Alirio Hudson MD CHEMISTRY ORDERABLE S [facility] [place] [address] * (ABNORMAL) Point of Care Blood Gas Historical (05/12/2023 8:10 AM EDT) pH, POC 7.27(Crit ical) 7.35 - 7.45 [facility] Comment:Critical value OK, C C Lab. pCO2, POC 37 35 - 45 mmHg [facility] pO2, POC 29(Critic al) 85 - 104 mmHg [facility] Comment:Critical value OK, C C Lab. Base Excess, POC -10.0(L) -3.0 - 3.0 mmol/L [facility] Bicarbonate, POC 16.7(L) 20.0 - 26.0 mmol/L [facility] Sodium, POC 123(L) 135 - 145 mmol/L [facility] POC Potassium 4.0 3.5 - 5.0 mmol/L [facility] Ionized Calcium, POC 1.12(L) 1.15 - 1.33 mmol/L [facility] POC Hematocrit 27.0(L) 34.0 - 45.0 % [facility] POC Calc Hgb 9.2(L) 11.2 - 15.7 g/dL [facility] Comment:The calculation of h emoglobin from hematocrit assumes a normal MCHC. POC Bgas Loc CC Lab [facility] Blood 05/12/2023 8:10 AM EDT 05/13/2023 12:00 PM EDT Alirio Hudson MD CHEMISTRY ORDERABLE S [facility] [place] [address] * (ABNORMAL) Lactate, whole blood, send to lab ([facility]) (05/12/2023 7:00 AM EDT) Lactate WB 2.4(H) 0.5 - 2.2 mmol/L [facility] Blood 05/12/2023 7:00 AM EDT 05/12/2023 7:09 AM EDT Narrative Resulting Agency Comment Spec In Lab Radha Hollins MD CHEMISTRY ORDERABL ES [facility] [place] [address] * (ABNORMAL) Comprehensive metabolic panel (non-fasting) (05/12/2023 6:00 AM EDT) Glucose 167 65 - 199 mg/dL [facility] Comment:Diabetes: >=200 mg/d L plus symptoms Blood Urea Nitrogen 67(H) 8 - 18 mg/dL [facility] Creatinine 2.01(H) 0.70 - 1.20 mg/dL [facility] Sodium 131(L) 135 - 145 mmol/L [facility] Potassium 4.3 3.5 - 5.0 mmol/L [facility] Comment: Please note: ??Patients with WBC >100,000 may have falsely elevated Potassium levels. ??For accurate Potassium quantification in these patients send serum separator tube (gold top) for subsequent determinations. ??Contact the Clinical Chemistry Laboratory if there are any questions. Chloride 97(L) 98 - 107 mmol/L [facility] Carbon Dioxide 14(L) 22 - 31 mmol/L [facility] Anion Gap 20(H) 5 - 15 mmol/L [facility] Calcium 8.6 8.5 - 10.5 mg/dL [facility] Protein, Total 6.3 6.1 - 8.0 g/dL [facility] Albumin 3.5 3.2 - 5.2 g/dL [facility] Aspartate Aminotransferase 1,435(H) 0 - 30 unit/L [facility] Alanine Aminotransferase 1,174(H) 0 - 30 unit/L [facility] Alkaline Phosphatase 100 35 - 105 unit/L [facility] Bilirubin, Total 0.9 0.2 - 1.3 mg/dL [facility] Est Glomerular Filtration Rate 27(L) [...] MD CHEMISTRY ORDERABL ES Performing Organization Address City/[facility] Co de Phone Number [facility] [place] [address] * (ABNORMAL) Coox2 (05/12/2023 5:08 AM EDT) pO2, Coox 24 mmHg [facility] Hgb Blood Gas 10.4(L) 11.7 - 15.5 g/dL [facility] Oxyhemoglobin, Coox 30.7 % [facility] Carboxyhemoglo bin, Coox 0.3 % [facility] Comment: Nonsmokers: 0.5-1.5% COHB Smokers: Variable, but usually less than 10% Toxic: 20-30% COHB Lethal: Greater than 60% COHB Methemoglobin, Coox 0.8 <=1.5 % [facility] Source Coox Mixed Venous [facility] Blood 05/12/2023 5:08 AM EDT 05/12/2023 5:08 AM EDT Radha Hollins MD POINT OF CARE TEST ORDERABLES Performing Organization Address City/[facility] Co de Phone Number [facility] [place] [address] * (ABNORMAL) Coox2 (05/12/2023 3:21 AM EDT) pO2, Coox 25 mmHg [facility] Hgb Blood Gas 10.8(L) 11.7 - 15.5 g/dL [facility] Oxyhemoglobin, Coox 32.7 % [facility] Carboxyhemoglo bin, Coox 0.3 % [facility] Comment: Nonsmokers: 0.5-1.5% COHB Smokers: Variable, but usually less than 10% Toxic: 20-30% COHB Lethal: Greater than 60% COHB Methemoglobin, Coox 0.7 <=1.5 % [facility] Source Coox Mixed Venous [facility] Blood 05/12/2023 3:21 AM EDT 05/12/2023 3:21 AM EDT Radha Hollins MD POINT OF CARE TEST ORDERABLES [facility] [place] [address] * (ABNORMAL) BLOOD GAS 2 ARTERIAL (05/12/2023 3:18 AM EDT) pH, Arterial 7.34(L) 7.35 - 7.45 [facility] PCO2, Arterial 30(L) 35 - 45 mmHg [facility] PO2, Arterial 72(L) 85 - 104 mmHg [facility] Bicarbonate, Arterial 16.0(L) 20.0 - 26.0 mmol/L [facility] Base Excess, Arterial -9.8(L) -3.0 - 3.0 mmol/L [facility] Hgb Blood Gas 11.0(L) 11.7 - 15.5 g/dL [facility] Oxyhemoglobin, Arterial 89.8(L) 94.0 - 97.0 % [facility] Carboxyhemoglob in, Arterial 0.3 % [facility] Comment: Nonsmokers: 0.5-1.5% COHB Smokers: Variable, but usually less than 10% Toxic: 20-30% COHB Lethal: Greater than 60% COHB Methemoglobin, Arterial 0.7 <=1.5 % [facility] Na Whole Blood 131(L) 135 - 145 mmol/L [facility] K Whole Blood 4.2 3.5 - 5.0 mmol/L [facility] Comment: Please note: Patients with WBC >100,000 may have falsely elevated Potassium levels. Contact the Clinical Chemistry Laboratory if there are any questions. ICa Whole Blood 1.12(L) 1.15 - 1.33 mmol/L [facility] Comment: Note: ??Total bilirubin higher than 20 mg/dL may lead to falsely low ionized calcium. CL Whole Blood 100 98 - 107 mmol/L [facility] Gluc Whole Bld 160 65 - 199 mg/dL [facility] Comment:Diabetes: >=200 mg/d L plus symptoms. Lactate WB 2.7(H) 0.5 - 2.2 mmol/L [facility] Flow Art 5.0 LPM [facility] Blood 05/12/2023 3:18 AM EDT 05/12/2023 3:18 AM EDT Radha Hollins MD POINT OF CARE TEST ORDERABLES Performing Organization Address [facility] Co de Phone Number [facility] [place] [address] * (ABNORMAL) Coox2 (05/12/2023 1:14 AM EDT) pO2, Coox 28 mmHg [facility] Hgb Blood Gas 10.9(L) 11.7 - 15.5 g/dL [facility] Oxyhemoglobin, Coox 37.3 % [facility] Carboxyhemoglo bin, Coox 0.3 % [facility] Comment: Nonsmokers: 0.5-1.5% COHB Smokers: Variable, but usually less than 10% Toxic: 20-30% COHB Lethal: Greater than 60% COHB Methemoglobin, Coox 0.5 <=1.5 % [facility] Source Coox Mixed Venous [facility] Blood 05/12/2023 1:14 AM EDT 05/12/2023 1:14 AM EDT Radha Hollins MD POINT OF CARE TEST ORDERABLES Performing Organization Address [facility] Co de Phone Number [facility] [place] [address] * (ABNORMAL) BLOOD GAS 2 ARTERIAL (05/12/2023 1:06 AM EDT) pH, Arterial 7.34(L) 7.35 - 7.45 [facility] PCO2, Arterial 30(L) 35 - 45 mmHg [facility] PO2, Arterial 81(L) 85 - 104 mmHg [facility] Bicarbonate, Arterial 15.7(L) 20.0 - 26.0 mmol/L [facility] Base Excess, Arterial -10.1(L) -3.0 - 3.0 mmol/L [facility] Hgb Blood Gas 11.0(L) 11.7 - 15.5 g/dL [facility] Oxyhemoglobin, Arterial 92.3(L) 94.0 - 97.0 % [facility] Carboxyhemoglob in, Arterial 0.2 % [facility] Comment: Nonsmokers: 0.5-1.5% COHB Smokers: Variable, but usually less than 10% Toxic: 20-30% COHB Lethal: Greater than 60% COHB Methemoglobin, Arterial 0.6 <=1.5 % [facility] Na Whole Blood 131(L) 135 - 145 mmol/L [facility] K Whole Blood 4.2 3.5 - 5.0 mmol/L [facility] Comment: Please note: Patients with WBC >100,000 may have falsely elevated Potassium levels. Contact the Clinical Chemistry Laboratory if there are any questions. ICa Whole Blood 1.13(L) 1.15 - 1.33 mmol/L [facility] Comment: Note: ??Total bilirubin higher than 20 mg/dL may lead to falsely low ionized calcium. CL Whole Blood 99 98 - 107 mmol/L [facility] Gluc Whole Bld 132 65 - 199 mg/dL [facility] Comment:Diabetes: >=200 mg/d L plus symptoms. Lactate WB 2.7(H) 0.5 - 2.2 mmol/L [facility] Flow Art 5.0 LPM [facility] Blood 05/12/2023 1:06 AM EDT 05/12/2023 1:06 AM EDT Radha Hollins MD POINT [place] [address] * (ABNORMAL) Differential, Automated (05/12/2023 1:05 AM EDT) Neutrophil % 83.3 % [facility] Neutrophil Absolute 7.49(H) 1.70 - 6.10 x10(3)/mc L [facility] Lymph % 7.1 % [facility] Lymphocytes Abs 0.6(L) 0.9 - 3.2 x10(3)/mc L [facility] Monocyte % 8.9 % [facility] Monocyte Abs 0.8 0.3 - 0.9 x10(3)/mc L [facility] Eos % 0.0 % [facility] Eosinophils Abs 0.0 0.0 - 0.4 x10(3)/mc L [facility] Basophil % 0.1 % [facility] Baso Absolute 0.0 0.0 - 0.1 x10(3)/mc L [facility] Immature Gran % 0.60 % [facility] Comment: Immature granulocytes(IG's)percentage and absolute count will include metamyelocytes, myelocytes, and promyelocytes. Blood smears from CBCs yielding IG's will be scanned manually for concordance. If this scan disagrees with the automated IG or if promyelocytes are noted, a manual differential will be performed. Immature Gran Absolute 0.05(H) 0.00 - 0.04 x10(3)/mc L [facility] Blood 05/12/2023 1:05 AM EDT 05/12/2023 1:15 AM EDT Narrative Resulting Agency Comment Spec In Lab Gianni Fletcher MD [place] [address] * (ABNORMAL) Hemogram (05/12/2023 1:05 AM EDT) White Blood Cell 9.0 4.0 - 9.5 x10(3)/mc L [facility] Red Blood Cell 3.01(L) 4.00 - 5.21 x10(6)/mc L [facility] Hemoglobin 9.8(L) 11.7 - 15.5 g/dL [facility] Hematocrit 28.7(L) 35.7 - 45.8 % [facility] Mean Cell Volume 95.3(H) 82.6 - 94.4 fL [facility] Mean Cell Hemoglobin 32.6(H) 27.1 - 32.0 pg [facility] Mean Cell Hemoglobin Concentration 34.1 31.7 - 35.0 g/dL [facility] Platelet 186 145 - 357 x10(3)/mc L [facility] RDW Standard Deviation 43.7 37.0 - 46.0 fL [facility] RDW coefficient of variation 12.7 11.5 - 14.1 % [facility] Mean Platelet Volume 10.3 7.6 - 12.9 fL [facility] NRBC% auto 0.0 % [facility] NRBC Absolute 0.000 0.000 - 0.000 x10(3)/ L [facility] Blood 05/12/2023 1:05 AM EDT 05/12/2023 1:15 AM EDT Narrative Resulting Agency Comment Spec In Lab Gianni Fletcher MD HEMATOLOGY ORDERABLE S [facility] [place] [address] * (ABNORMAL) Comprehensive metabolic panel (non-fasting) (05/12/2023 1:05 AM EDT) Glucose 141 65 - 199 mg/dL [facility] Comment:Diabetes: >=200 mg/d L plus symptoms Blood Urea Nitrogen 63(H) 8 - 18 mg/dL [facility] Creatinine 1.86(H) 0.70 - 1.20 mg/dL [facility] Sodium 131(L) 135 - 145 mmol/L [facility] Potassium 4.4 3.5 - 5.0 mmol/L [facility] Comment: Please note: ??Patients with WBC >100,000 may have falsely elevated Potassium levels. ??For accurate Potassium quantification in these patients send serum separator tube (gold top) for subsequent determinations. ??Contact the Clinical Chemistry Laboratory if there are any questions. Chloride 96(L) 98 - 107 mmol/L [facility] Carbon Dioxide 14(L) 22 - 31 mmol/L [facility] Anion Gap 21(H) 5 - 15 mmol/L [facility] Calcium 9.0 8.5 - 10.5 mg/dL [facility] Protein, Total 6.6 6.1 - 8.0 g/dL [facility] Albumin 3.9 3.2 - 5.2 g/dL [facility] Aspartate Aminotransferase 1,227(H) 0 - 30 unit/L [facility] Alanine Aminotransferase 1,097(H) 0 - 30 unit/L [facility] Alkaline Phosphatase 108(H) 35 - 105 unit/L [facility] Bilirubin, Total 1.0 0.2 - 1.3 mg/dL [facility] Est Glomerular Filtration Rate 29(L) >=60 mL/min/1. 73 m?? [facility] Comment: This patient's estimated GFR [...] Lab Radha Hollins MD CHEMISTRY ORDERABL ES [facility] [place] [address] * XR Chest One View (05/12/2023 1:00 [...] have questions please contact the health care management assistant that requested your imaging first. ? Electronically signed by: Will Rowe MD, [facility] ([phone]), at 05/12/2023 3:16 AM Narrative 05/12/2023 3:16 [...] who have questions please contactthe health care management assistant that requested your imaging first. Radha Hollins MD IMG DX ORDERABLES * (ABNORMAL) Coox2 (05/12/2023 12:30 AM EDT) pO2, Coox 22 mmHg [facility] Hgb Blood Gas 10.9(L) 11.7 - 15.5 g/dL [facility] Oxyhemoglobin, Coox 25.1 % [facility] Carboxyhemoglo bin, Coox 0.3 % [facility] Comment: Nonsmokers: 0.5-1.5% COHB Smokers: Variable, but usually less than 10% Toxic: 20-30% COHB Lethal: Greater than 60% COHB Methemoglobin, Coox 1.4 <=1.5 % [facility] Source Coox Mixed Venous [facility] Blood 05/12/2023 12:3 0 AM EDT 05/12/2023 12:30 AM EDT Radha Hollins MD POINT [place] [address] * XR Chest One View (05/11/2023 11:45 [...] have questions please contact the health care management assistant that requested your imaging first. ? Electronically signed by: Will Rowe MD, [facility] ([phone]), at 05/11/2023 11:57 PM Narrative 05/11/2023 11:57 [...] who have questions please contactthe health care management assistant that requested your imaging first. Electronically signed by: Will Rowe MD, [facility]([phone]), at 05/11/2023 11:57 PM Radha Hollins MD IMG DX ORDERABLES * (ABNORMAL) Lactate, whole blood, send to lab ([place]) (05/11/2023 7:40 PM EDT) Pathologist [facility] Lactate WB 4.8(Critic al) 0.5 - 2.2 mmol/L [facility] Comment:Called by: [facility], Read back by: Magdalena Baires, Date/Time:05/11/23 19:54. Blood 05/11/2023 7:40 PM EDT 05/11/2023 7:49 PM EDT Narrative Resulting Agency Comment Spec In Lab Radha Hollins MD CHEMISTRY ORDERABL ES [facility] [place] [address] * Urine culture (05/11/2023 7:22 PM EDT) Pathologist [facility] Urine Culture 50,000-99,000 cfu/ml Normal mucosal herman Susceptibilit y testing not routinely performed for Coagulase Negative Staphylococcu s species and other Gram Positive organisms from urine. [facility] Clean Catch Urine 05/11/2023 7:22 PM EDT 05/11/2023 8:50 PM EDT Narrative Resulting Agency Comment Spec In Lab Brody Kaplan APRN MICROBIOLOGY - GENE RAL ORDERABLES Performing Organization Address [facility] Co de Phone Number [facility] [place] [address] * (ABNORMAL) Urinalysis Microscopic Exam (05/11/2023 7:22 PM EDT) RBC, Urine 2 0 - 4 /HPF [facility] WBC, Urine >100(H) 0 - 5 /HPF [facility] Bacteria, Urine Occasional (A) None /HPF [facility] Squamous Epithelial Cells Raw Data, Urine 5(H) <=4 /HPF [facility] Hyaline Casts, Urine 3(H) 0 - 2 /LPF [facility] Clean Catch Urine 05/11/2023 7:22 PM EDT 05/11/2023 7:31 PM EDT Narrative Resulting Agency Comment Spec In Lab Brody Kaplan EXTRACTOR PULLER URINE ORDERABLES Performing Organization Address [facility] de Phone Number [facility] [place] [address] * (ABNORMAL) Urinalysis with reflex Culture (05/11/2023 7:22 PM EDT) Glucose, Urine Dipstick Negative Negative mg/dL [facility] Protein, Urine Dipstick Trace(A) Negative mg/dL [facility] Bilirubin, Urine Dipstick Negative Negative mg/dL [facility] Comment: Clinical correlation required for positive Urine Bilirubin results as false positive may occur with some drugs and drug related products. If a false positive is suspected a serum total bilirubin should be considered if clinically indicated. Urobilinogen, Urine Dipstick Normal Normal mg/dL [facility] pH, Urn (dipstick) 5.0 5.0 - 8.0 [facility] Blood, Urine Dipstick Trace(A) Negative mg/dL [facility] Ketone, Urine Dipstick Negative Negative mg/dL [facility] Nitrite, Urine Dipstick Negative Negative [facility] Leukocytes, Urine Dipstick Moderate(A) Negative mcL [facility] Appearance, Urine Dipstick Cloudy(A) Clear [facility] Specific Chromo Urine Automated >=1.030(A) 1.005 - 1.030 [facility] Color, Urine Dipstick Yellow Yellow [facility] Reflex to Culture Yes [facility] Clean Catch Urine 05/11/2023 7:22 PM EDT 05/11/2023 7:31 PM EDT Narrative Resulting Agency Comment Spec In Lab Brody Kaplan APRN URINE ORDERABLES Performing Organization Address [facility]/ZIP Co de Phone Number [facility] [place] [address] * (ABNORMAL) pro-Brain Natriuretic Peptide (05/11/2023 7:11 PM EDT) NT-proBNP >35,000(H) <=124 pg/mL [facility] Blood 05/11/2023 7:11 PM EDT 05/11/2023 7:26 PM EDT Narrative Resulting Agency Comment Spec In Lab Radha Hollins MD CHEMISTRY ORDERABL ES Performing Organization Address [facility] Co de Phone Number [facility] [place] [address] * (ABNORMAL) Lactate, whole blood, send to lab ([place]) (05/11/2023 2:47 PM EDT) Lactate WB 2.9(H) 0.5 - 2.2 mmol/L [facility] Blood 05/11/2023 2:47 PM EDT 05/11/2023 2:53 PM EDT Narrative Resulting Agency Comment Spec In Lab Juan Luis Gonzalez MD CHEMISTRY ORDERABLES Performing Organization Address [facility]/ZIP Co de Phone Number [facility] [place] [address] * (ABNORMAL) CT Angiogram Abdomen & Pelvis [...] have questions please contact the health care management assistant that requested your imaging first. ? Electronically signed by: Eileen Gomes MD, [facility] ([phone]), at 05/11/2023 2:42 PM Narrative 05/11/2023 2:42 [...] have questions please contact the health care management assistant that requested your imaging first. ? Electronically signed by: Cullen Narayanan MD, [facility] ([phone]), at 05/11/2023 4:37 PM Narrative 05/11/2023 4:37 [...] 610 mm2 Circumference: 88 mm Calcification: Mild Ygecipr-ao-mcnufiqv height: Left: 6.2 mm Right: 5.8 mm THORACIC AORTA Description: Normal course and caliber. ??Mild diffuse atherosclerotic changes. No acute aortopathy noted. Form Drafter dimensions: Aortic root: 27.6 mm Max ascending aorta: 30.5 mm x 27.7 mm Suggested fluoroscopic angulation based on line extending through the nadirs of the three sinuses of Valsalva, set equidistant: ?? MONGOLIAN ??9 degrees; cranial 7 degrees MITRAL: Mitral [...] 610 mm2 Circumference: 88 mm Calcification: Mild Iqhrnrq-pa-kjdrjips height: Left: 6.2 mm Right: 5.8 mm THORACIC AORTA Description: Normal course and caliber. Mild diffuse atheroscleroticchanges. No acute aortopathy noted. Form Drafter dimensions: Aortic root: 27.6 mm Max ascending aorta: 30.5 mm x 27.7 mm Suggested fluoroscopic angulation based on line extending through thenadirs of the three sinuses of Valsalva, set equidistant: MONGOLIAN 9 degrees; cranial 7 degrees MITRAL: Mitral [...] who have questions please contactthe health care management assistant that requested your imaging first. Electronically signed by: Cullen Narayanan MD, [facility]([phone]), at 05/11/2023 4:37 PM Antelmo Sharma MD [facility] ORDERABLES * (ABNORMAL) Lactate, whole blood, send to lab ([place]) (05/11/2023 9:29 AM EDT) Lactate WB 3.1(H) 0.5 - 2.2 mmol/L [facility] Blood 05/11/2023 9:29 AM EDT 05/11/2023 9:38 AM EDT Narrative Resulting Agency Comment Spec In Lab Juan Luis Gonzalez MD CHEMISTRY ORDERABLES Performing Organization Address City/[facility]/ZIP Co de Phone Number [facility] [place] [address] * (ABNORMAL) Differential, Automated (05/11/2023 4:42 AM EDT) Neutrophil % 78.1 % [facility] Neutrophil Absolute 5.46 1.70 - 6.10 x10(3)/mc L [facility] Lymph % 10.6 % [facility] Lymphocytes Abs 0.7(L) 0.9 - 3.2 x10(3)/mc L [facility] Monocyte % 9.6 % [facility] Monocyte Abs 0.7 0.3 - 0.9 x10(3)/mc L [facility] Eos % 0.0 % [facility] Eosinophils Abs 0.0 0.0 - 0.4 x10(3)/mc L [facility] Basophil % 0.4 % [facility] Baso Absolute 0.0 0.0 - 0.1 x10(3)/mc L [facility] Immature Gran % 1.30 % [facility] Comment: Immature granulocytes(IG's)percentage and absolute count will include metamyelocytes, myelocytes, and promyelocytes. Blood smears from CBCs yielding IG's will be scanned manually for concordance. If this scan disagrees with the automated IG or if promyelocytes are noted, a manual differential will be performed. Immature Gran Absolute 0.09(H) 0.00 - 0.04 x10(3)/mc L [facility] Blood 05/11/2023 4:42 AM EDT 05/11/2023 4:49 AM EDT Narrative Resulting Agency Comment Spec In Lab Klaudia Reid MD HEMATOLOGY OR DERABLES [facility] [place] [address] * (ABNORMAL) Hemogram (05/11/2023 4:42 AM EDT) White Blood Cell 7.0 4.0 - 9.5 x10(3)/mc L [facility] Red Blood Cell 3.44(L) 4.00 - 5.21 x10(6)/mc L [facility] Hemoglobin 11.1(L) 11.7 - 15.5 g/dL [facility] Hematocrit 32.7(L) 35.7 - 45.8 % [facility] Mean Cell Volume 95.1(H) 82.6 - 94.4 fL [facility] Mean Cell Hemoglobin 32.3(H) 27.1 - 32.0 pg [facility] Mean Cell Hemoglobin Concentration 33.9 31.7 - 35.0 g/dL [facility] Platelet 165 145 - 357 x10(3)/mc L [facility] RDW Standard Deviation 43.1 37.0 - 46.0 fL [facility] RDW coefficient of variation 12.7 11.5 - 14.1 % [facility] Mean Platelet Volume 10.1 7.6 - 12.9 fL [facility] NRBC% auto 0.0 % [facility] NRBC Absolute 0.000 0.000 - 0.000 x10(3)/ L [facility] Blood 05/11/2023 4:42 AM EDT 05/11/2023 4:49 AM EDT Narrative Resulting Agency Comment Spec In Lab Klaudia Reid MD HEMATOLOGY OR DERABLES [facility] [place] [address] * Heparin (unfractionated) Level (05/11/2023 4:42 AM EDT) UF Heparin 0.46 IU/mL [facility] Comment: Heparin (anti-Xa) [...] Lab Radha Hollins MD HEMATOLOGY ORDERAB LES [facility] [place] [address] * (ABNORMAL) Comprehensive metabolic panel (non-fasting) (05/11/2023 4:42 AM EDT) Glucose 143 65 - 199 mg/dL [facility] Comment:Diabetes: >=200 mg/d L plus symptoms Blood Urea Nitrogen 42(H) 8 - 18 mg/dL [facility] Creatinine 1.24(H) 0.70 - 1.20 mg/dL [facility] Sodium 134(L) 135 - 145 mmol/L [facility] Potassium 4.6 3.5 - 5.0 mmol/L [facility] Comment: Please note: ??Patients with WBC >100,000 may have falsely elevated Potassium levels. ??For accurate Potassium quantification in these patients send serum separator tube (gold top) for subsequent determinations. ??Contact the Clinical Chemistry Laboratory if there are any questions. Chloride 99 98 - 107 mmol/L [facility] Carbon Dioxide 14(L) 22 - 31 mmol/L [facility] Anion Gap 21(H) 5 - 15 mmol/L [facility] Calcium 9.6 8.5 - 10.5 mg/dL [facility] Protein, Total 7.2 6.1 - 8.0 g/dL [facility] Albumin 3.7 3.2 - 5.2 g/dL [facility] Aspartate Aminotransferase 144(H) 0 - 30 unit/L [facility] Comment:result rechecked-ssc Alanine Aminotransferase 130(H) 0 - 30 unit/L [facility] Comment:result rechecked-ssc Alkaline Phosphatase 72 35 - 105 unit/L [facility] Bilirubin, Total 0.8 0.2 - 1.3 mg/dL [facility] Est Glomerular Filtration Rate 48(L) >=60 mL/min/1. 73 m?? [facility] Comment: This patient's estimated GFR [...] Lab Radha Hollins MD CHEMISTRY ORDERABL ES [facility] [place] [place] [address] * EKG 12 Lead (05/10/2023 1:16 PM EDT) Ventricular rate 118 BPM MUSE SYSTEM Atrial Rate 118 BPM MUSE SYSTEM P-R Interval 152 ms MUSE SYSTEM QRS Duration 104 ms MUSE SYSTEM Q-T Interval 316 ms MUSE SYSTEM QTC Calculated (Bezet) 442 ms MUSE SYSTEM Calculated P [place] 29 degrees MUSE SYSTEM Calculated R [place] 18 degrees MUSE SYSTEM Calculated T [place] -173 degrees MUSE SYSTEM INTERPRETATION Sinus tachycardia Minimal voltage criteria for LVH, may be normal variant ( Blue Bell product ) Septal infarct , age undetermined ST & T wave abnormality, consider lateral ischemia Abnormal ECG When compared with ECG of 10-MAY-2023 07:59, Fusion complexes are no longer Present Premature ventricular complexes are no longer Present ST no longer depressed in Anterior leads Confirmed by MD Villareal Danette ([id number]) on 05/10/2023 8:47:46 PM MUSE SYSTEM 05/10/2023 1:16 PM EDT 05/10/2023 8:47 PM EDT Juan Luis Gonzalez MD ECG ORDERABLES MUSE SYSTEM * Lactate, whole blood, send to lab ([place]) (05/10/2023 11:52 AM EDT) Lactate WB 1.8 0.5 - 2.2 mmol/L [facility] Blood 05/10/2023 11:5 2 AM EDT 05/10/2023 12:13 PM EDT Narrative Resulting Agency Comment Spec In Lab Juan Luis Gonzalez MD CHEMISTRY ORDERABLES Performing Organization Address City/[facility] Co de Phone Number [facility] [place] [address] * XR Chest One View (05/10/2023 11:16 [...] have questions please contact the health care management assistant that requested your imaging first. ? Narrative [...] who have questions please contactthe health care management assistant that requested your imaging first. Electronically signed by: ALIX RUVALCABA MD, [facility]([phone]), at 05/10/2023 1:25 PM Juan Luis Gonzalez MD IMG DX ORDERABLES * EKG 12 Lead (05/10/2023 7:59 AM EDT) Ventricular rate 115 BPM MUSE SYSTEM Atrial Rate 115 BPM MUSE SYSTEM P-R Interval 142 ms MUSE SYSTEM QRS Duration 102 ms MUSE SYSTEM Q-T Interval 322 ms MUSE SYSTEM QTC Calculated (Bezet) 445 ms MUSE SYSTEM Calculated P [place] 36 degrees MUSE SYSTEM Calculated R [place] 28 degrees MUSE SYSTEM Calculated T [place] -119 degrees MUSE SYSTEM INTERPRETATION Sinus tachycardia with frequent Premature ventricular complexes and Fusion complexes ST & T wave abnormality, consider lateral ischemia Abnormal ECG When compared with ECG of 08-MAY-2023 15:51, No significant change was found I personally reviewed the tracing and edited the fellows interpretation Confirmed by fellow MD Anitha, Carissa ([id number]) on 05/11/2023 6:19:54 AM Confirmed by MD Tram, Chel ([id number]) on 05/11/2023 3:18:56 PM MUSE SYSTEM 05/10/2023 7:59 AM EDT 05/11/2023 3:18 PM EDT Radha Hollins MD ECG ORDERABLES MUSE SYSTEM * (ABNORMAL) Differential, Automated (05/10/2023 2:28 AM EDT) Neutrophil % 77.1 % [facility] Neutrophil Absolute 4.01 1.70 - 6.10 x10(3)/mc L [facility] Lymph % 14.0 % [facility] Lymphocytes Abs 0.7(L) 0.9 - 3.2 x10(3)/mc L [facility] Monocyte % 7.7 % [facility] Monocyte Abs 0.4 0.3 - 0.9 x10(3)/mc L [facility] Eos % 0.4 % [facility] Eosinophils Abs 0.0 0.0 - 0.4 x10(3)/mc L [facility] Basophil % 0.4 % [facility] Baso Absolute 0.0 0.0 - 0.1 x10(3)/mc L [facility] Immature Gran % 0.40 % [facility] Comment: Immature granulocytes(IG's)percentage and absolute count will include metamyelocytes, myelocytes, and promyelocytes. Blood smears from CBCs yielding IG's will be scanned manually for concordance. If this scan disagrees with the automated IG or if promyelocytes are noted, a manual differential will be performed. Immature Gran Absolute 0.02 0.00 - 0.04 x10(3)/mc L [facility] Blood 05/10/2023 2:28 AM EDT 05/10/2023 2:57 AM EDT Narrative Resulting Agency Comment Spec In Lab Klaudia Reid MD HEMATOLOGY OR DERABLES Performing Organization Address City/[facility]/ZIP Co de Phone Number [facility] [place] [address] * (ABNORMAL) Hemogram (05/10/2023 2:28 AM EDT) White Blood Cell 5.2 4.0 - 9.5 x10(3)/mc L [facility] Red Blood Cell 3.11(L) 4.00 - 5.21 x10(6)/mc L [facility] Hemoglobin 10.2(L) 11.7 - 15.5 g/dL [facility] Hematocrit 30.2(L) 35.7 - 45.8 % [facility] Mean Cell Volume 97.1(H) 82.6 - 94.4 fL [facility] Mean Cell Hemoglobin 32.8(H) 27.1 - 32.0 pg [facility] Mean Cell Hemoglobin Concentration 33.8 31.7 - 35.0 g/dL [facility] Platelet 151 145 - 357 x10(3)/mc L [facility] RDW Standard Deviation 44.9 37.0 - 46.0 fL [facility] RDW coefficient of variation 12.8 11.5 - 14.1 % [facility] Mean Platelet Volume 9.8 7.6 - 12.9 fL [facility] NRBC% auto 0.0 % [facility] NRBC Absolute 0.000 0.000 - 0.000 x10(3)/mc L [facility] Blood 05/10/2023 2:28 AM EDT 05/10/2023 2:57 AM EDT Narrative Resulting Agency Comment Spec In Lab Klaudia Reid MD HEMATOLOGY OR DERABLES Performing Organization Address City/[facility] Co de Phone Number [facility] [place] [address] * (ABNORMAL) Comprehensive metabolic panel (non-fasting) (05/10/2023 2:28 AM EDT) Glucose 100 65 - 199 mg/dL [facility] Comment:Diabetes: >=200 mg/d L plus symptoms Blood Urea Nitrogen 30(H) 8 - 18 mg/dL [facility] Creatinine 0.90 0.70 - 1.20 mg/dL [facility] Sodium 134(L) 135 - 145 mmol/L [facility] Potassium 4.1 3.5 - 5.0 mmol/L [facility] Comment: Please note: ??Patients with WBC >100,000 may have falsely elevated Potassium levels. ??For accurate Potassium quantification in these patients send serum separator tube (gold top) for subsequent determinations. ??Contact the Clinical Chemistry Laboratory if there are any questions. Chloride 102 98 - 107 mmol/L [facility] Carbon Dioxide 20(L) 22 - 31 mmol/L [facility] Anion Gap 12 5 - 15 mmol/L [facility] Calcium 9.3 8.5 - 10.5 mg/dL [facility] Protein, Total 6.4 6.1 - 8.0 g/dL [facility] Albumin 3.7 3.2 - 5.2 g/dL [facility] Aspartate Aminotransferase 24 0 - 30 unit/L [facility] Alanine Aminotransferase 14 0 - 30 unit/L [facility] Alkaline Phosphatase 70 35 - 105 unit/L [facility] Bilirubin, Total 0.5 0.2 - 1.3 mg/dL [facility] Est Glomerular Filtration Rate 70 >=60 mL/min/1. 73 m?? [facility] Comment: This patient's estimated GFR [...] ES Performing Organization Address [facility] [place] [address] * Heparin (unfractionated) Level (05/10/2023 2:28 AM EDT) Pathologist [facility] UF Heparin 0.37 IU/mL [facility] Comment: Heparin (anti-Xa) [...] LES Performing Organization Address [facility] [place] [address] * (ABNORMAL) Differential, Automated (05/09/2023 4:00 AM EDT) Neutrophil % 81.7 % [facility] Neutrophil Absolute 5.26 1.70 - 6.10 x10(3)/mc L [facility] Lymph % 10.7 % [facility] Lymphocytes Abs 0.7(L) 0.9 - 3.2 x10(3)/mc L [facility] Monocyte % 6.5 % [facility] Monocyte Abs 0.4 0.3 - 0.9 x10(3)/mc L [facility] Eos % 0.5 % [facility] Eosinophils Abs 0.0 0.0 - 0.4 x10(3)/mc L [facility] Basophil % 0.3 % [facility] Baso Absolute 0.0 0.0 - 0.1 x10(3)/mc L [facility] Immature Gran % 0.30 % [facility] Comment: Immature granulocytes(IG's)percentage and absolute count will include metamyelocytes, myelocytes, and promyelocytes. Blood smears from CBCs yielding IG's will be scanned manually for concordance. If this scan disagrees with the automated IG or if promyelocytes are noted, a manual differential will be performed. Immature Gran Absolute 0.02 0.00 - 0.04 x10(3)/ L [facility] Blood 05/09/2023 4:00 AM EDT 05/09/2023 4:19 AM EDT Narrative Resulting Agency Comment Spec In Lab Klaudia Reid MD HEMATOLOGY OR DERABLES Performing Organization Address City/State/[facility] Co de Phone Number [facility] [place] [address] * (ABNORMAL) Hemogram (05/09/2023 4:00 AM EDT) White Blood Cell 6.4 4.0 - 9.5 x10(3)/ L [facility] Red Blood Cell 3.15(L) 4.00 - 5.21 x10(6)/mc L [facility] Hemoglobin 10.2(L) 11.7 - 15.5 g/dL [facility] Hematocrit 30.3(L) 35.7 - 45.8 % [facility] Mean Cell Volume 96.2(H) 82.6 - 94.4 fL [facility] Mean Cell Hemoglobin 32.4(H) 27.1 - 32.0 pg [facility] Mean Cell Hemoglobin Concentration 33.7 31.7 - 35.0 g/dL [facility] Platelet 151 145 - 357 x10(3)/ L [facility] RDW Standard Deviation 44.7 37.0 - 46.0 fL [facility] RDW coefficient of variation 12.8 11.5 - 14.1 % [facility] Mean Platelet Volume 9.4 7.6 - 12.9 fL [facility] NRBC% auto 0.0 % [facility] NRBC Absolute 0.000 0.000 - 0.000 x10(3)/mc L [facility] Blood 05/09/2023 4:00 AM EDT 05/09/2023 4:19 AM EDT Narrative Resulting Agency Comment Spec In Lab Klaudia Reid MD HEMATOLOGY OR DERABLES Performing Organization Address [facility] Co de Phone Number [facility] [place] [address] * Heparin (unfractionated) Level (05/09/2023 4:00 AM EDT) UF Heparin 0.47 IU/mL [facility] Comment: Heparin (anti-Xa) levels should [...] LES Performing Organization Address [facility] Co de Phone Number [facility] [place] [address] * (ABNORMAL) Comprehensive metabolic panel (non-fasting) (05/09/2023 4:00 AM EDT) Glucose 108 65 - 199 mg/dL [facility] Comment:Diabetes: >=200 mg/d L plus symptoms Blood Urea Nitrogen 31(H) 8 - 18 mg/dL [facility] Creatinine 1.03 0.70 - 1.20 mg/dL [facility] Sodium 137 135 - 145 mmol/L [facility] Potassium 4.4 3.5 - 5.0 mmol/L [facility] Comment: Please note: ??Patients with WBC >100,000 may have falsely elevated Potassium levels. ??For accurate Potassium quantification in these patients send serum separator tube (gold top) for subsequent determinations. ??Contact the Clinical Chemistry Laboratory if there are any questions. Chloride 102 98 - 107 mmol/L [facility] Carbon Dioxide 20(L) 22 - 31 mmol/L [facility] Anion Gap 15 5 - 15 mmol/L [facility] Calcium 9.3 8.5 - 10.5 mg/dL [facility] Protein, Total 6.6 6.1 - 8.0 g/dL [facility] Albumin 3.8 3.2 - 5.2 g/dL [facility] Aspartate Aminotransferase 32(H) 0 - 30 unit/L [facility] Alanine Aminotransferase 18 0 - 30 unit/L [facility] Alkaline Phosphatase 78 35 - 105 unit/L [facility] Bilirubin, Total 0.5 0.2 - 1.3 mg/dL [facility] Est Glomerular Filtration Rate 60 >=60 mL/min/1. 73 m?? [facility] Comment: This patient's estimated GFR [...] Lab Radha Hollins MD CHEMISTRY ORDERABL ES [facility] [place] [address] * (ABNORMAL) pro-Brain Natriuretic Peptide (05/08/2023 4:00 PM EDT) NT-proBNP 25,503(H) <=124 pg/mL [facility] Blood Venous Draw / Unknown 05/08/2023 4:00 PM EDT 05/08/2023 4:25 PM EDT Narrative Resulting Agency Comment Spec In Lab Juan Luis Gonzalez MD CHEMISTRY ORDERABLES [facility] [place] [address] * Magnesium (05/08/2023 4:00 PM EDT) Pathologist [facility] Magnesium 0.82 0.69 - 1.07 mmol/L [facility] Blood 05/08/2023 4:00 PM EDT 05/08/2023 4:06 PM EDT Narrative Resulting Agency Comment Spec In Lab Enrique Chua MD CHEMISTRY ORDERABLES Performing Organization Address [facility]/ZIP Co de Phone Number [facility] [place] [address] * Potassium (05/08/2023 4:00 PM EDT) Pathologist [facility] Potassium 3.9 3.5 - 5.0 mmol/L [facility] Comment: Please note: ??Patients [...] MD CHEMISTRY ORDERABL ES Performing Organization Address City/[facility]/ZIP Co de Phone Number [facility] [place] [address] * Heparin (unfractionated) Level (05/08/2023 4:00 PM EDT) UF Heparin 0.43 IU/mL [facility] Comment: Heparin (anti-Xa) [...] MD HEMATOLOGY ORDERAB LES Performing Organization Address City/State/[facility] Co de Phone Number [facility] [place] [address] * EKG 12 Lead (05/08/2023 3:51 PM EDT) Ventricular rate 98 BPM MUSE SYSTEM Atrial Rate 98 BPM MUSE SYSTEM P-R Interval 150 ms MUSE SYSTEM QRS Duration 102 ms MUSE SYSTEM Q-T Interval 358 ms MUSE SYSTEM QTC Calculated (Bezet) 457 ms MUSE SYSTEM Calculated P [place] 38 degrees MUSE SYSTEM Calculated R [place] 48 degrees MUSE SYSTEM Calculated T [place] -112 degrees MUSE SYSTEM INTERPRETATION Sinus rhythm with frequent and consecutive Premature ventricular and fusion complexes Septal infarct , age undetermined ST & T wave abnormality, consider anterolateral ischemia Abnormal ECG When compared with ECG of 09-NOV-2022 11:17, T wave inversion now evident in Anterolateral leads Confirmed by MD Harshil, Enrique Bell ([id number]) on 05/10/2023 8:11:46 AM MUSE SYSTEM 05/08/2023 3:51 PM EDT 05/10/2023 8:11 AM EDT Radha Hollins MD ECG ORDERABLES MUSE SYSTEM * (ABNORMAL) Differential, Automated (05/08/2023 11:38 AM EDT) Neutrophil % 71.3 % [facility] Neutrophil Absolute 2.91 1.70 - 6.10 x10(3)/mc L [facility] Lymph % 19.1 % [facility] Lymphocytes Abs 0.8(L) 0.9 - 3.2 x10(3)/mc L [facility] Monocyte % 9.0 % [facility] Monocyte Abs 0.4 0.3 - 0.9 x10(3)/mc L [facility] Eos % 0.2 % [facility] Eosinophils Abs 0.0 0.0 - 0.4 x10(3)/mc L [facility] Basophil % 0.2 % [facility] Baso Absolute 0.0 0.0 - 0.1 x10(3)/mc L [facility] Immature Gran % 0.20 % [facility] Comment: Immature granulocytes(IG's)percentage and absolute count will include metamyelocytes, myelocytes, and promyelocytes. Blood smears from CBCs yielding IG's will be scanned manually for concordance. If this scan disagrees with the automated IG or if promyelocytes are noted, a manual differential will be performed. Immature Gran Absolute 0.01 0.00 - 0.04 x10(3)/mc L [facility] Blood 05/08/2023 11:3 8 AM EDT 05/08/2023 11:44 AM EDT Narrative Resulting Agency Comment Spec In Lab Lincoln Sal MD HEMATOLOGY ORDERA BLES [facility] [place] [address] * (ABNORMAL) Hemogram (05/08/2023 11:38 AM EDT) White Blood Cell 4.1 4.0 - 9.5 x10(3)/mc L [facility] Red Blood Cell 3.05(L) 4.00 - 5.21 x10(6)/mc L [facility] Hemoglobin 10.2(L) 11.7 - 15.5 g/dL [facility] Hematocrit 29.6(L) 35.7 - 45.8 % [facility] Mean Cell Volume 97.0(H) 82.6 - 94.4 fL [facility] Mean Cell Hemoglobin 33.4(H) 27.1 - 32.0 pg [facility] Mean Cell Hemoglobin Concentration 34.5 31.7 - 35.0 g/dL [facility] Platelet 136(L) 145 - 357 x10(3)/mc L [facility] RDW Standard Deviation 44.3 37.0 - 46.0 fL [facility] RDW coefficient of variation 12.6 11.5 - 14.1 % [facility] Mean Platelet Volume 9.4 7.6 - 12.9 fL [facility] NRBC% auto 0.0 % [facility] NRBC Absolute 0.000 0.000 - 0.000 x10(3)/[facility] Blood 05/08/2023 11:3 8 AM EDT 05/08/2023 11:44 AM EDT Narrative Resulting Agency Comment Spec In Lab Lincoln Sal MD HEMATOLOGY ORDERA BLES Performing Organization Address City/[facility] Co de Phone Number [facility] [place] [address] * TSH (05/08/2023 11:38 AM EDT) Thyroid Stimulating Hormone 1.27 0.27 - 4.20 mcIU/mL [facility] Comment: Reference Interval (mcIU/mL): Females: ??First Trimester: 0.23-3.88 ??Second Trimester: 0.22-3.90 ??Third Trimester: 0.44-4.66 Blood 05/08/2023 11:3 8 AM EDT 05/08/2023 11:44 AM EDT Narrative Resulting Agency Comment Spec In Lab Enrique Chua MD CHEMISTRY ORDERABLES [facility] [place] [address] * (ABNORMAL) Phosphorus (05/08/2023 11:38 AM EDT) Phosphorus 4.7(H) 2.5 - 4.5 mg/dL [facility] Blood 05/08/2023 11:3 8 AM EDT 05/08/2023 11:44 AM EDT Narrative Resulting Agency Comment Spec In Lab Enrique Chua MD CHEMISTRY ORDERABLES Performing Organization Address City/[facility] Co de Phone Number [facility] [place] [address] * Magnesium (05/08/2023 11:38 AM EDT) Magnesium 0.76 0.69 - 1.07 mmol/L [facility] Blood 05/08/2023 11:3 8 AM EDT 05/08/2023 11:44 AM EDT Narrative Resulting Agency Comment Spec In Lab Enrique Chua MD CHEMISTRY ORDERABLES Performing Organization Address City/[facility] Co de Phone Number [facility] [place] [address] * (ABNORMAL) Basic Metabolic Panel (non-fasting) (05/08/2023 11:38 AM EDT) Glucose 97 65 - 199 mg/dL [facility] Comment:Diabetes: >=200 mg/d L plus symptoms Blood Urea Nitrogen 27(H) 8 - 18 mg/dL [facility] Creatinine 1.02 0.70 - 1.20 mg/dL [facility] Sodium 139 135 - 145 mmol/L [facility] Potassium 4.2 3.5 - 5.0 mmol/L [facility] Comment: Please note: ??Patients with WBC >100,000 may have falsely elevated Potassium levels. ??For accurate Potassium quantification in these patients send serum separator tube (gold top) for subsequent determinations. ??Contact the Clinical Chemistry Laboratory if there are any questions. Chloride 105 98 - 107 mmol/L [facility] Carbon Dioxide 20(L) 22 - 31 mmol/L [facility] Anion Gap 14 5 - 15 mmol/L [facility] Calcium 9.4 8.5 - 10.5 mg/dL [facility] Est Glomerular Filtration Rate 60 >=60 mL/min/1. 73 m?? [facility] Comment: This patient's estimated GFR [...] In Lab Enrique Chua MD CHEMISTRY ORDERABLES [facility] [place] [address] * ECHO COMPLETE (05/08/2023 11:02 AM EDT) EF 25 HEARTLAB SYSTEM Anatomical Region Laterality Modality Cardiac Other 05/08/2023 10:0 3 AM EDT Narrative 05/08/2023 11:51 AM EDT ? Echocardiogram Report Name: PURNIMA THACKER ?Study Date: 05/08/2023 10:03 AMBP: 92/64 mmHg ? Patient Location: [facility]^CV29^A : 1955 ? Height: 155 cm ? Account: [id number] Age: 67 yrs ? Weight: 78 kg Gender: Female ?BSA: 1.8 m2 Ordering Physician: ENRIQUE CHUA Referring Physician: MARIO ALBERTO CHIN Performed By: CHUCKIE Canchola Reason For Study: SAVR Stenosis Exam Location: [facility]. Interpretation Summary -Left ventricle is severely [...] worsening stenosis. Mitral regurgitation is similar. Procedure Complete-[id number]. Satisfactory quality. There is normal sinus rhythm. [...] Study Date: 0:03 AMBP: 92/64 mmHg Patient Location:[facility]^CV29^A : 1955 Height: 155 cm Account: [id number] Age: 67 yrs Weight: 78 kg Gender: Female BSA: 1.8 m2 Ordering Physician: ENRIQUE CHUA Referring Physician: MARIO ALBERTO CHIN Performed By: CHUCKIE Canchola Reason For Study: SAVR Stenosis Exam Location: [facility]. Interpretation Summary -Left ventricle is severely [...] suggestsworsening stenosis. Mitral regurgitation is similar. Procedure Complete-[id number]. Satisfactory quality. There is normal sinus rhythm. 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 Rate/Dose Verify 05/17/2023 8:00 AM [...] Calhoun RN) 013 (Not Given - Provider: Fvaian Mckeon RN - Reason: See comment)0930 (Not [...] post-op day 1 in the AM Give [place] if unable to take PO, Routine Group [...] Routine documented in this encounter Care Teams Pin Game Machine Inspector Relationship Specialty Start Date End Date Magdalena Acosta MD [address] [place] [address] PCP - General Family Medicine 02/05/23 documented as of this encounter
--- OUTSIDE RECORDS SUMMARY | 2024-04-04 14:16 | XMS_ITS | Encounter Summary ---
[place] [address] Care Team Providers Care Database Security Administrator Name Role Phone Magdalena Acosta MD Primary Care Provider [phone] Reason for Visit * Auth/Cert (Routine) Specialty Diagnoses / Procedures Referred By Contac t Referred To Contact Diagnoses Symptomatic severe aortic stenosis with low ejection fraction NSTEMI, CHF Haris Chua MD [facility] [place] [address] [facility] Referral ID Status Reason Start Date Expiration Date Visits Re quested Visits Authorized [id number] 1 1 Encounter Details Date Type Department Care Team (Late st Contact Info) Description 05/12/2023 7:35 AM EDT Anesthesia Event [place] [address] Lynda Mcgowan MD [facility] [place] [address] Alie Park MD [facility] [place] [address] Anesthesia Record Procedure Summary Procedure Name Responsible [...] cephalic vein (lateral side of arm), left; [id number]-[id number]-[id number] catheter system; Anatomical Landmarks; US Not Used; [...] RN LDA Cath/EP Sheath 05/12/23; 0733; 14 Burmese (Fr); Right; Femoral; Arterial 05/12/23 0733 by Guerda Bender, RN 05/12/23 0830 by Guerda Bender RN LDA Cath/EP Sheath 05/12/23; 0734; 6 Burmese (Fr); Right; Femoral; Venous 05/12/23 0734 by Guerda Bender RN 05/12/23 0817 by Guerda Bender RN LDA Cath/EP Sheath 05/12/23; 0734; 7 Burmese (Fr); Left; Femoral; Arterial 05/12/23 0734 by Guerda Bender, RN 05/12/23 0837 by Guerda Bender RN LDA Cath/EP Sheath 05/12/23; 0734; 6 Burmese (Fr); Left; Femoral; Venous 05/12/23 0734 by [...] Procedure Summary Date: 05/12/23 Room / Location: [facility] / [facility] CATH LABS Anesthesia Start: 734 Anesthesia [...] All Anesthesia Providers: Anesthesiologist: Lynda Mcgowan MD Street Department Dispatcher: Nico Graham MD Vitals Value Taken Time [...] ??? Mild coronary artery disease by [facility] 11/09/2022 05/08/2023 ??? Heart [...] S&I N/A 11/09/2022 CORONARY ANGIOGRAPHY; W [facility],POSSIBLE PCI (WRVU 5.6) performed by Nitesh Escobedo MD at [facility] CATH LABS ??? PRO AORTOPLAS FOR SUPRAVALV STEN N/A 09/21/2016 @AORTOPLASTY FOR SUPRAVALVULAR STENOSIS (WRVU 29.33) performed by Alirio Esparza MD at [facility] MAIN OR ??? PRO REPLACEMENT PROSTHETIC AORTIC VALVE OPEN W CARDIOPULMONARY BYPASS HOMOGRF/STENT N/A 09/21/2016 @REPLACE AORTIC VALVE, OPEN, W\CPB, W\PROSTHETIC VALVE (WRVU 41.32) performed by Alirio Esparza MD at [facility] MAIN OR Social History Tobacco Use [...] 3 general, with a(n) intravenous induction Add-on [id number] TAVR. In cardiogenic shock. Has arterial line, [...] 4:15 PM EDT Office Visit Dermatology at [place] [address] [place] [phone] Marek Bonilla MD [address], [place] [address] documented as of this encounter Visit Diagnoses [...] mL/hr documented in this encounter Care Teams Database Security Administrator Relationship Specialty Start Date End Date Magdalena Acosta MD [address] [place] [address] PCP - General Family Medicine 02/05/23 documented as of this encounter
--- OUTSIDE RECORDS SUMMARY | 2024-04-04 14:16 | XMS_ITS | Encounter Summary ---
[place] [address] Care Team Providers Care Laborer Yard Name Role Phone Magdalena Acosta MD Primary Care Provider [phone] Encounter Details Date Type Department Care Team [...] 4:15 PM EDT Office Visit Dermatology at [place] [address] [place] [address] Marek Bonilla MD [address], TOD[place] A DERMATOLOGY [place], [place] [id number] documented as of this encounter Visit Diagnoses Not on filedocumented in this encounter Care Teams Laborer Yard Relationship Specialty Start Date End Date Magdalena Acosta MD [address] [place] [address] PCP - General Family Medicine 02/05/23 documented as of this encounter
--- OUTSIDE RECORDS SUMMARY | 2024-04-04 14:17 | XMS_ITS | Encounter Summary ---
Author Organization Count Includes [facility] [place] [facility] [address] Care Team Providers Care Metallurgical Specialist Name Role Phone Magdalena Acosta MD Primary Care Provider [phone] Reason for Referral * Consultation (Routine) - Closed Specialty Diagnoses / Procedures Referred By Contac t Referred To Contact Rheumatology Diagnoses Weakness Kyra Haas MD [facility] [address] [place] [address] [facility] [address] [place] [phone] Referral ID Status Reason Start Date Expiration Date V isits Requested Visits Authorized [id number] Closed Consult, Test & Treat PCP Updated and/or Approved 02/25/2023 02/25/2024 6 6 Encounter Details Date Type Department Care Team (Late st Contact Info) Description 02/25/2023 Transcribe Orders eDH Incoming Referrals [phone] Magdalena cAosta MD [address] [place] [address] Weakness Social History Tobacco Use [...] 4:15 PM EDT Office Visit Dermatology at [place] [address] [place] [address] Marek Bonilla MD [address], [address] [place] [address] Scheduled Referrals Name Type Priority Associated Diagnoses Order Schedule Referral to Rheumatology Outpatient Referral Routine Weakness Ordered: 02/25/2023 documented as of this encounter Visit Diagnoses Diagnosis Weakness Other malaise and fatigue documented in this encounter Care Teams Metallurgical Specialist Relationship Specialty Start Date End Date Magdalena Acosta MD [address] [place] [address] PCP - General Family Medicine 02/05/23 documented as of this encounter
--- OUTSIDE RECORDS SUMMARY | 2024-04-04 14:17 | XMS_ITS | Encounter Summary ---
Author Organization [place] [address] Care Team Providers Care Corrosion Control Specialist Name Role Phone Magdalena Acosta MD Primary Care Provider [phone] Encounter Details Date Type Department Care Team (Late st Contact Info) Description 05/08/2023 [place] [phone] Luis Felipe Ott MD [facility] [address] Social History Tobacco Use Types Packs/Day Years [...] 0426 Referring Provider: Nitesh Baltazar Patient Location: [facility] Presenting Symptoms per OSH: 67 year [...] diuresis with IV furosemide 20 x 1 ([id number] at rheumatology appointment), SpO2 85% on RA -> 95% on 2L NC, HR 120s. Examination significant for decreased breath sounds at the bases. Pertinent Diagnostic Findings: CBC - Hgb 10.5 CMP - Cr 1.1 BNP 81098 HsTrop 1358 Lactate 1.6 D-dimer 1183, CTPE pending CXR demonstrated pulmonary vascular congestion US showed bilateral b lines Bedside echo reportedly similar to prior TTE for LV function OSH Interventions: ASA 324 Heparin gtt Plan: Transfer to [facility] Above recommendations/plans are based on my conversation with the referring provider. I have not personally interviewed or examined this patient. Luis Felipe Ott MD Pile Driving Supervisor Received a call from provider emergently at 715am. Mentating well and BP 87/53. HR 108 and diursingwell. They were about to start phenylephrine which I stressed was not a good option given concern for severe and increasing afterload. She is warm on exam, mentating and urinating and we do not need to amrit a BP if those things remain stable. Nico Segura, PGY-6 Pile Driving Supervisor [id number] documented in this encounter Plan of Treatment Upcoming Encounters Date Type Department Care Team (Late st Contact Info) Description 03/01/2025 4:15 PM EDT Office Visit Dermatology at [place] [address] [place] [address] Marek Bonilla MD [address], [place] [address] documented as of this encounter Visit Diagnoses Not on filedocumented in this encounter Care Teams Corrosion Control Specialist Relationship Specialty Start Date End Date Magdalena Acosta MD [address] [place] [address] PCP - General Family Medicine 02/05/23 documented as of this encounter
--- OUTSIDE RECORDS SUMMARY | 2024-04-04 14:17 | XMS_ITS | Encounter Summary ---
[place] [address] Care Team Providers Care Uptwister Tender Name Role Phone Magdalena Acosta MD [...] PM EDT Office Visit Dermatology at [address] [place] [address] Marek Bonilla MD [address] [place] [address] documented as of this encounter Visit Diagnoses Not on filedocumented in this encounter Care Teams Uptwister Tender Relationship Specialty Start Date End Date Magdalena Acosta MD [address] [place] [address] PCP - General Family Medicine 02/05/23 documented as of this encounter
--- OUTSIDE RECORDS SUMMARY | 2024-04-04 14:17 | XMS_ITS | Encounter Summary ---
[place] [address] Care Team Providers Care Ceiling Insulation Blower Name Role Phone Magdalena Acosta MD Primary Care Provider [phone] Reason for Visit * Reason Comments Skin Lesion Encounter Details Date Type Department Care Team (Late st Contact Info) Description 04/20/2023 10:00 AM EDT Office Visit Dermatology at [address] [address] Marek Bonilla MD [address] [facility] [facility], [place] [address] Seborrheic keratosis Social History Tobacco Use Types [...] cutaneous and ocular 3. Previously told by tax credit leasing consultant that she had corneal tears from [...] 4:15 PM EDT Office Visit Dermatology at [place] [address] [place] [address] Marek Bonilla MD [address], [place] [address] documented as of this encounter Visit Diagnoses Diagnosis Seborrheic keratosis Other seborrheic keratosis documented in this encounter Care Teams Ceiling Insulation Blower Relationship Specialty Start Date End Date Magdalena Acosta MD [address] [place] [address] PCP - General Family Medicine 02/05/23 documented as of this encounter
--- OUTSIDE RECORDS SUMMARY | 2024-04-04 14:17 | XMS_ITS | Encounter Summary ---
Author Organization [facility] [place] [address] Care Team Providers Care Lead Level Designer Name Role Phone Magdalena Acosta MD Primary Care Provider [phone] Encounter Details Date Type Department Care Team (Late st Contact Info) Description 02/17/2023 2:00 PM EDT Office [place] [phone] Alirio Esparza MD Aortic valve stenosis, etiology [...] 4:15 PM EDT Office Visit Dermatology at [place] [address] [place] [address] Marek Bonilla MD [address], [place] [address] documented as of this encounter Visit Diagnoses Diagnosis Aortic valve stenosis, etiology of cardiac valve disease unspecified documented in this encounter Care Teams Lead Level Designer Relationship Specialty Start Date End Date Magdalena Acosta MD [address] [place] [address] PCP - General Family Medicine 02/05/23 documented as of this encounter
--- OUTSIDE RECORDS SUMMARY | 2024-04-04 14:17 | XMS_ITS | Encounter Summary ---
[place] [address] Care Team Providers Care Associate Professor Of Law Name Role Phone Magdalena Acosta MD Primary Care Provider [phone] Reason for Visit * Reason Comments Annual Exam Encounter Details Date Type Department Care Team (Late st Contact Info) Description 02/05/2023 2:30 PM EDT Office Visit Dermatology at [address] [address] Marek Bonilla MD [address] [facility] [place] [address] Rosacea; Ocular rosacea; Nevus Social History Tobacco [...] cutaneous and ocular 2. Previously told by coin collector that she had corneal tears from her [...] PM EDT Office Visit Dermatology at [address] [phone] Marek Bonilla MD [address] [facility] [place] [address] documented as of this encounter Visit Diagnoses Diagnosis Rosacea Ocular rosacea Rosacea Nevus Benign neoplasm of skin, site unspecified documented in this encounter Care Teams Associate Professor Of Law Relationship Specialty Start Date End Date Magdalena Acosta MD [address] [place] [address] PCP - General Family Medicine 02/05/23 documented as of this encounter
--- OUTSIDE RECORDS SUMMARY | 2024-04-04 14:17 | XMS_ITS | Encounter Summary ---
[place] [address] Care Team Providers Care Industry Segment Specialist Name Role Phone Magdalena Acosta MD Primary Care Provider Encounter Details Date Type Department Care Team (Latest Contact Info) Description 03/18/2023 2:30 PM EDT Laboratory Appointment Lab [address] [phone] Positive FRANCISCO (antinuclear antibody) Social History Tobacco [...] 4:15 PM EDT Office Visit Dermatology at [place] [address] [place] [phone] Marek Bonilla MD [address], [place] [address] documented as of this encounter Procedures Procedure [...] 2:14 PM EDT) Neutrophil % 71.2 % [facility] Neutrophil Absolute 2.26 1.70 - 6.10 x10(3)/mc L [facility] Lymph % 18.2 % [facility] Lymphocytes Abs 0.6(L) 0.9 - 3.2 x10(3)/mc L [facility] Monocyte % 9.7 % [facility] Monocyte Abs 0.3 0.3 - 0.9 x10(3)/mc L [facility] Eos % 0.3 % [facility] Eosinophils Abs 0.0 0.0 - 0.4 x10(3)/mc L [facility] Basophil % 0.6 % [facility] Baso Absolute 0.0 0.0 - 0.1 x10(3)/[facility] Immature Gran % 0.00 % [facility] Comment: Immature granulocytes(IG's)percentage and absolute count will include metamyelocytes, myelocytes, and promyelocytes. Blood smears from CBCs yielding IG's will be scanned manually for concordance. If this scan disagrees with the automated IG or if promyelocytes are noted, a manual differential will be performed. Immature Gran Absolute 0.00 0.00 - 0.04 x10(3)/[facility] Blood 03/18/2023 2:14 PM EDT 03/18/2023 2:24 PM EDT Narrative Resulting Agency Comment Spec In Lab Magdalena Peralta MD HEMATOLOGY ORDERABLE S Performing Organization Address City/State/[facility] Co de Phone Number [facility] [place] [address] * (ABNORMAL) Hemogram (03/18/2023 2:14 PM EDT) White Blood Cell 3.2(L) 4.0 - 9.5 x10(3)/[facility] Red Blood Cell 3.44(L) 4.00 - 5.21 x10(6)/[facility] Hemoglobin 11.1(L) 11.7 - 15.5 g/dL [facility] Hematocrit 32.9(L) 35.7 - 45.8 % [facility] Mean Cell Volume 95.6(H) 82.6 - 94.4 fL [facility] Mean Cell Hemoglobin 32.3(H) 27.1 - 32.0 pg [facility] Mean Cell Hemoglobin Concentration 33.7 31.7 - 35.0 g/dL [facility] Platelet 144(L) 145 - 357 x10(3)/[facility] RDW Standard Deviation 42.6 37.0 - 46.0 fL [facility] RDW coefficient of variation 12.3 11.5 - 14.1 % [facility] Mean Platelet Volume 9.4 7.6 - 12.9 fL [facility] NRBC% auto 0.0 % [facility] ITAL LABORATORY NRBC Absolute 0.000 0.000 - 0.000 x10(3)/mc L [facility] Blood 03/18/2023 2:14 PM EDT 03/18/2023 2:24 PM EDT Narrative Resulting Agency Comment Spec In Lab Magdalena Peralta MD HEMATOLOGY ORDERABLE S Performing Organization Address [facility] Co de Phone Number [facility] [place] [address] * (ABNORMAL) Sedimentation rate (03/18/2023 2:14 PM EDT) Sedimentation Rate Automated 68(H) 2 - 39 mm/hr [facility] Comment: Effective July 12, 2019 new capillary photometric technology has resulted in a change in reference ranges. It is recommended that each ESR result be reviewed with its own age appropriate reference range. Blood 03/18/2023 2:14 PM EDT 03/18/2023 2:24 PM EDT Narrative Resulting Agency Comment Spec In Lab Kia Viramontes DO HEMATOLOGY ORDERAB LES Performing Organization Address [facility] Co de Phone Number [facility] [place] [address] * CRP, acute inflammation (03/18/2023 2:14 PM EDT) C-Reactive Protein 3.0 <=4.9 mg/L [facility] Blood 03/18/2023 2:14 PM EDT 03/18/2023 2:24 PM EDT Narrative Resulting Agency Comment Spec In Lab Kia Viramontes DO CHEMISTRY ORDERABL ES Performing Organization Address [facility] Co de Phone Number [facility] [place] [address] * C3 Complement (03/18/2023 2:14 PM EDT) Complement C3 142 90 - 180 mg/dL [facility] Blood 03/18/2023 2:14 PM EDT 03/18/2023 2:24 PM EDT Narrative Resulting Agency Comment Spec In Lab Kia Viramontes DO CHEMISTRY ORDERABL ES Performing Organization Address [facility] de Phone Number [facility] [place] [address] * C4 Complement (03/18/2023 2:14 PM EDT) Complement C4 30 10 - 40 mg/dL [facility] Blood 03/18/2023 2:14 PM EDT 03/18/2023 2:24 PM EDT Narrative Resulting Agency Comment Spec In Lab Kia Viramontes DO CHEMISTRY ORDERABL ES Performing Organization Address [facility] de Phone Number [facility] [place] [address] * CK (03/18/2023 2:14 PM EDT) Creatine Kinase 38 0 - 160 unit/L [facility] Blood 03/18/2023 2:14 PM EDT 03/18/2023 2:24 PM EDT Narrative Resulting Agency Comment Spec In Lab Kia Viramontes DO CHEMISTRY ORDERABL ES Performing Organization Address [facility] de Phone Number [facility] [place] [address] * DNA Antibody (Double-Stranded) (03/18/2023 2:14 PM EDT) dsDNA Ab <0.6 <=15.0 IU/mL [facility] Comment: <10 negative 10-15 equivocal >15 positive This dsDNA antibody result was generated using a fluoroenzyme immunoassay on the [employer] 250 analyzer. This quantitative test is designed to detect IgG antibodies directed against double stranded DNA in human serum. The presence of antibodies that recognize dsDNA is a highly specific marker for systemic lupus erythematosus. Please note that as of 05/26/2022 that this testing is performed by the Special Chemistry Laboratory at [facility]. This change in testing location is associated with a change is testing method and reference intervals. Please review the results of this test in association with the posted reference intervals. Blood 03/18/2023 2:14 PM EDT 03/19/2023 7:19 AM EDT Narrative Resulting Agency Comment Spec In Lab Kia Viramontes DO LAB SEND OUT ORDER JODIE [facility] [place] [address] * (ABNORMAL) FRANCISCO Ab by IFA (03/18/2023 2:14 PM EDT) FRANCISCO Ab Screen Test ? Result ?Flag ??Unit ??RefValue Antinuclear Ab, HEp-2 ?Positive 1:2560 ??@ ?<1:80 (Negative) ??Substrate, S ? ADDITIONAL INFORMATION --------- ?Method: Immunofluorescence using HEp-2 cellular substrate. ??FRANCISCO Titer: ? 1:2560 ??FRANCISCO Pattern: ? Speckled ?Test Performed by: ?[facility] ?[address] [place] [address] ?Microwave Radio Technician: Raymond Chaudhry M.D. Ph.D.; CLIA# [id number] ([id number]) [facility] Blood 03/18/2023 2:14 PM EDT 03/18/2023 3:02 PM EDT Narrative Resulting Agency Comment Spec In Lab Kia James Wander DO CHEMISTRY ORDERABL ES [facility] [place] [address] * Comprehensive metabolic panel (non-fasting) (03/18/2023 2:14 PM EDT) Glucose 93 65 - 199 mg/dL [facility] Comment:Diabetes: >=200 mg/d L plus symptoms Blood Urea Nitrogen 18 8 - 18 mg/dL [facility] Creatinine 0.99 0.70 - 1.20 mg/dL [facility] Sodium 141 135 - 145 mmol/L [facility] Potassium 4.5 3.5 - 5.0 mmol/L [facility] Comment: Please note: ??Patients with WBC >100,000 may have falsely elevated Potassium levels. ??For accurate Potassium quantification in these patients send serum separator tube (gold top) for subsequent determinations. ??Contact the Clinical Chemistry Laboratory if there are any questions. Chloride 106 98 - 107 mmol/L [facility] Carbon Dioxide 24 22 - 31 mmol/L [facility] Anion Gap 11 5 - 15 mmol/L [facility] Calcium 10.0 8.5 - 10.5 mg/dL [facility] Protein, Total 7.3 6.1 - 8.0 g/dL [facility] Albumin 4.3 3.2 - 5.2 g/dL [facility] Aspartate Aminotransferase 26 0 - 30 unit/L [facility] Alanine Aminotransferase 11 0 - 30 unit/L [facility] Alkaline Phosphatase 91 35 - 105 unit/L [facility] Bilirubin, Total 0.4 0.2 - 1.3 mg/dL [facility] Est Glomerular Filtration Rate 62 >=60 mL/min/1. 73 m?? [facility] Comment: This patient's estimated [...] DO CHEMISTRY ORDERABL ES Performing Organization Address City/State/[facility] [place] [address] documented in this encounter Visit Diagnoses Diagnosis Positive FRANCISCO (antinuclear antibody) Other and unspecified nonspecific immunological findings documented in this encounter Care Teams Industry Segment Specialist Relationship Specialty Start Date End Date Magdalena Acosta MD [address] [place] [address] PCP - General Family Medicine 02/05/23 documented as of this encounter
--- OUTSIDE RECORDS SUMMARY | 2024-04-04 14:17 | XMS_ITS | Encounter Summary ---
[facility] Organization [facility] [place] [address] Care Team Providers Care Drawbridge Operator Name Role Phone Magdalena Acosta MD Primary Care Provider [phone] Reason for Visit * Auth/Cert (Routine) Specialty Diagnoses / Procedures Referred By Contac t Referred To Contact Diagnoses Symptomatic severe aortic stenosis with low ejection fraction NSTEMI, CHF Enrique Chua MD [facility] [place] [address] [place] Referral ID Status Reason Start Date Expiration Date Visits Re quested Visits Authorized [id number] 1 1 Encounter Details Date Type Department Care Team (Late st Contact Info) Description 05/12/2023 2:50 PM EDT - 05/12/2023 3:50 PM EDT Surgery [place] [address] Antelmo Sharma MD [facility] [place] [address] CARDIAC CATHETERIZATION Social History Tobacco Use Types [...] Patient Age: 67 y.o. Birthdate: 1955 Language: Bermudian Race: White Ethnicity: Not nor Admit Date: 05/08/2023 Discharge Date: 05/22/2023 Attending Physician: Alirio Hudson MD Follow-up Recommendations for Providers: Please continue routine management of cardiovascular risk factors including blood pressure, lipids,glucose, etc. Please note any medication changes. Patient to follow up with PCP, Magdalena Acosta MD, or Primary Refractory Repairer, Avis Mejia MD, in ~ 7-10 days. Patient to follow up with Computer Sciences Professor, Dr. Antelmo Sharma, in 2 weeks with an EKG, Echo, CBC, and CMP. Patient to follow up with Nephrology, their office to arrange. Wxud-Oucnaz-sv interval: After initial 30 day follow-up appointment , all TAVR patients will follow-up again in one year with an echo. 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 Secondary Diagnoses: Active Hospital Problems Diagnosis S/P TAVR (transcatheter aortic valve replacement) Cardiogenic shock Symptomatic severe aortic stenosis with low ejection fraction Mild coronary artery disease by [facility] 11/09/2022 Heart failure with reduced [...] Placement Right 05/18/2023 Laure Ricks PA [facility] INTERVENTIONL RAD PRG CATH PLMT LEFT HEART CATH & ARTS W/INJ & ANGIO IMG S&I N/A 11/09/2022 CORONARY ANGIOGRAPHY; W [facility],POSSIBLE PCI (WRVU 5.6) performed by Mario Alberto Escobedo MD at [facility] CATH LABS PRG COMBINED RIGHT & LEFT HEART CATH W/INJ L VENTRICULOGRAPHY, IMG S&I N/A 05/12/2023 COMBINED RIGHT & LEFT HEART CATH,INC INJ FOR L VENTRICULOGRAPHY (WRVU 5.99) performed by Antelmo Sharma MD at [facility] CATH LABS PRO AORTOPLAS FOR SUPRAVALV STEN N/A 09/21/2016 @AORTOPLASTY FOR SUPRAVALVULAR STENOSIS (WRVU 29.33) performed by Alirio Hudson MD at [facility] MAIN OR PRO REPLACE AORTIC VALVE (TAVR/FEDERICO)PERC FEMORAL ARTERY APPROACH 05/12/2023 @TRANSCATHETER AORTIC VALVE REPLACEMENT (TAVR), PERCUTANEOUS FEMORAL (WRVU 22.47) performed by Alirio Hudson MD at [facility] CATH LABS PRO REPLACEMENT PROSTHETIC AORTIC VALVE OPEN W CARDIOPULMONARY BYPASS HOMOGRF/STENT N/A 09/21/2016 @REPLACE AORTIC VALVE, OPEN, W\CPB, W\PROSTHETIC VALVE (WRVU 41.32) performed by Alirio Hudson MD at [facility] MAIN OR Prior To Admission Medications [...] Major Procedures/Operations: 05/12/23: Successful right transfemoral TAVR Ccxnc-zw-Gchfq with a 23 mm Lai 3 THV. Left coronary protection with left main MINNA. Hospital Course: #Severe prosthetic s/p valve in valve TF TAVR #Low coronary heights s/p left main stent for coronary protection #Type 2 NSTEMI, present on arrival, resolved #Acute decompensated HFrEF #Cardiogenic shock #EVANS / Cardiorenal syndrome Purnima Thacker was admitted to [facility] on 05/08/2023 via the Cardiology Service [...] TAVR and she was brought to the [facility] the following morning where Drs. Alirio Hudson [...] if you have questions. Please call your Computer Sciences Professor's office if you have any discharge or drainage from your procedural sites. Your Computer Sciences Professor, Dr. Antelmo Sharma and/or the Hvac Installation Technician may be reached at . Antibiotic prophylaxis: You will need to take antibiotics prior to many invasive tests and treatments, such as dental cleaning, which should be done every 6 months. Your primary care physician or your dentist can prescribe this medication. Please refer to the card with the [employer] [employer] Guidelines for more information. You have been provided with a copy of this card. Please refer to the [employer] [employer] Guidelines for more information. Good [...] friends, go to a movie, go to jehovah's witness, etc. Heavy activities: No hunting, skiing, jogging, [...] should resume a low fat, low cholesterol, [employer] [employer] Diet Driving: No restrictions. Shower/Bath: You may shower daily. No baths, soaking, or swimming for the first week. Wound care: Wash the sites daily with soap and rinse well, pat dry. Assess for any signs of infection such as increased redness, pain, warmth or drainage. Please call your automotive lube technician's office if you have any discharge or drainage from your procedural sites. If there is a lot of swelling, apply mamta wraps during the day and remove at bedtime. Elevate your legs when you are sitting. Home oxygen therapy: N/A Follow up appointments: Please schedule a follow-up appointment with your PCP, Magdalena Acosta MD, or Primary Refractory Repairer in ~ 7-10 days. You have a follow-up appointment with your Computer Sciences Professor, Dr. Antelmo Sharma, in 2 weeks with an EKG, Echo, and labs prior to your appointment. You will need follow-up with Nephrology, their office will arrange. Kdkg-Amesby-he interval: After initial 30 day follow-up appointment , all TAVR patients will follow-up again in one year with an echo. Cardiac Rehabilitation: Purnima Thacker was seen today regarding participation in the outpatient Phase 2 Cardiac Rehabilitation at [facility]. The patient agrees to a referral to this program. The referral will be sent at discharge and the patient should be contacted by the Program within 1- 2 weeks from discharge. Future Appointments and Orders Future Appointments and Orders Future Appointments Provider Department Dept Phone 07/29/2023 11:00 AM Magdalena Peralta MD Rheumatology at [facility] Arrive at: Capital Project Engineer Area [address] [phone] 02/11/2024 2:00 PM Marek Bonilla MD Dermatology at [place] Arrive at: [facility] [address] [phone] Future Orders Complete By Expires Type and Screen Future Surgery, [facility] SAME DAY PROGRAM ONLY) [CFS1714 Custom] 05/11/2023 Process Instructions: This test is intended ONLY for patients with upcoming surgery for testing prior to the day of surgery obtained through the same day program (4V or SDP). For ALL OTHER PATIENTS, order a Type and Screen (XXS835) This order includes the physician order for an ABO Recheck if requested by the Blood Bank. Scheduling Instructions: Comments: Questions: Date of surgery: CBC (with Diff) [JNO991 Custom] 06/05/2023 12/05/2023 Process Instructions: INCLUDES: WBC, RBC, Hgb, Hct, Platelets, RBC Indices and Differential Scheduling Instructions: Comments: Questions: Comprehensive metabolic panel (non-fasting) [LAB17 Custom] 06/05/2023 08/20/2023 Process Instructions: INCLUDES: Calcium, T Protein, Albumin, AST, ALT, Alk Phos, T Bili, BUN, Creat, GFR, Glucose, Lytes. Scheduling Instructions: Comments: Questions: Echocardiogram Transthoracic [37039 CPT(R)] 06/05/2023 12/05/2023 Process Instructions: Scheduling Instructions: Questions: Where will study be performed?: [facility] Clinics Does the patient have Congenital Heart Disease?: Does patient require sedation?: GA rationale: EKG 12 Lead [07994 CPT(R)] 06/05/2023 12/05/2023 Process Instructions: Scheduling Instructions: Questions: Which location will this be performed?: [place] Is a rhythm strip needed?: No [facility] Devices [EQ161 Custom] As directed Process Instructions: Scheduling Instructions: Questions: Device Needed: WALKER (E0143) Patient Height (cm): 154.9 cm (5' 0.98) Patient Weight: 75.4 kg (166 lb 3.2 oz) Diagnosis: Unsteady gait when walking Referral to Cardiac Rehab [PDQ494 Custom] As directed Process Instructions: If no progress note charted, please enter Clinical details in comments. Scheduling Instructions: Questions: My question or request is: s/p TAVR. Cardiac rehab at [facility]. Referral to Home Health [REF34 Custom] As directed Process Instructions: If no progress note charted, please enter Clinical details in comments. Scheduling Instructions: Comments: DOCUMENTATION FOR VNA SERVICES PATIENT'S LOCATION: Purnima Thacker [address] [place] [address] [phone] (home) Auriculotherapist's Name: Irineo and brother Raymond In discussion with the attending physician, it is certified that this patient is under his/her careand that MD, or an BAKER PASTRY, MEAT SMOKER, or PA who is working directly with him/her, had a ljav-rz-scnn encounter that meets the physician zmgh-qc-urez encounter requirements with this patient on 05/22/2023. [...] for managing ADLs. HOME HEALTH CARE AGENCY: [facility]. [address] [facility] [address] PHONE: [phone] FAX: [phone] Start of care: Ideally 24-48 hours after [...] Acosta MD [address] / [facility] [phone] All VNA agencies which cover the area of patient's residence have been reviewed, either verbally joao writing, and patient has chosen the home health care agency noted. Questions: Disciplines Requested: Physical Therapy Occupational Therapy Discharge References/Attachments None Arrangements for VNA/home care: As above. (delete if no VNA) Signed: EKATERINA NAVARRETE [facility] Section of Cardiac Surgery Date: 05/22/2023 CC: Magdalena Acosta MD [place] Alberto maxwell MD [address] [place] [address] documented in this encounter Discharge Instructions * Patient Instructions* Vinod Juárez PA - 05/22/2023 9:32 AM EDT TAVR Discharge Instructions: Call your doctor if: You have a fever of greater than 101 degrees, shaking chills, if you develop redness or drainage from your procedure sites, or if you have questions. Please call your Computer Sciences Professor's office if you have any discharge or drainage from your procedural sites. Your Computer Sciences Professor, Dr. Antelmo Sharma and/or the Hvac Installation Technician may be reached at . Antibiotic prophylaxis: You will need to take antibiotics prior to many invasive tests and treatments, such as dental cleaning, which should be done every 6 months. Your primary care physician or your dentist can prescribe this medication. Please refer to the card with the [employer] [employer] Guidelines for more information. You have been provided with a copy of this card. Please refer to the [employer] [employer] Guidelines for more information. Good [...] friends, go to a movie, go to jehovah's witness, etc. Heavy activities: No hunting, skiing, jogging, [...] should resume a low fat, low cholesterol, [employer] [employer] Diet Driving: No restrictions. Shower/Bath: You may shower daily. No baths, soaking, or swimming for the first week. Wound care: Wash the sites daily with soap and rinse well, pat dry. Assess for any signs of infection such as increased redness, pain, warmth or drainage. Please call your automotive lube technician's office if you have any discharge or drainage from your procedural sites. If there is a lot of swelling, apply mamta wraps during the day and remove at bedtime. Elevate your legs when you are sitting. Home oxygen therapy: N/A Follow up appointments: Please schedule a follow-up appointment with your PCP, Magdalena Acosta MD, or Primary Refractory Repairer in ~ 7-10 days. You have a follow-up appointment with your Computer Sciences Professor, Dr. Antelmo Sharma, in 2 weeks with an EKG, Echo, and labs prior to your appointment. You will need follow-up with Nephrology, their office will arrange. Bcha-Rtsxlf-xd interval: After initial 30 day follow-up appointment , all TAVR patients will follow-up again in one year with an echo. Cardiac Rehabilitation: Purnima Gallegol was seen today regarding participation in the outpatient Phase 2 Cardiac Rehabilitation at [facility]. The patient agrees to [...] ins ( tef) Haven Ba, PT Pager: [phone] Physical Therapy Inpatient Rehabilitation Department * Nico [...] Assessment/Plan: 67 y.o. female 9 Days Post-Op Jaent TF TAVR for prosthetic . Medically ready [...] 0600 and on the weekends please page [phone]. * Joyr Paniagua - 05/20/2023 3:52 PM [...] vomiting Last Bowel Movement: 05/20/23 Jory Paniagua Breakdown Mill Operator * Tong Mike, OT - 05/20/2023 [...] Placement Right 05/18/2023 Laure Ricks PA [facility] INTERVENTIONL RAD PRG CATH PLMT LEFT HEART CATH & ARTS W/INJ & ANGIO IMG S&I N/A 11/09/2022 CORONARY ANGIOGRAPHY; W [facility],POSSIBLE PCI (WRVU 5.6) performed by Mario Alberto Escobedo MD at [facility] CATH LABS PRG COMBINED RIGHT & LEFT HEART CATH W/INJ L VENTRICULOGRAPHY, IMG S&I N/A 05/12/2023 COMBINED RIGHT & LEFT HEART CATH,INC INJ FOR L VENTRICULOGRAPHY (WRVU 5.99) performed by Antelmo Sharma MD at [facility] CATH LABS PRO AORTOPLAS FOR SUPRAVALV STEN N/A 09/21/2016 @AORTOPLASTY FOR SUPRAVALVULAR STENOSIS (WRVU 29.33) performed by Alirio Hudson MD at [facility] MAIN OR PRO REPLACE AORTIC VALVE (TAVR/FEDERICO)PERC FEMORAL ARTERY APPROACH 05/12/2023 @TRANSCATHETER AORTIC VALVE REPLACEMENT (TAVR), PERCUTANEOUS FEMORAL (WRVU 22.47) performed by Alirio Hudson MD at [facility] CATH LABS PRO REPLACEMENT PROSTHETIC AORTIC VALVE OPEN W CARDIOPULMONARY BYPASS HOMOGRF/STENT N/A 09/21/2016 @REPLACE AORTIC VALVE, OPEN, W\CPB, W\PROSTHETIC VALVE (WRVU 41.32) performed by Alirio Hudson MD at [facility] MAIN OR Social History: Patient lives alone. Home Setup: Pt lives on one level with tub shower and three steps to enter. 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 Total Minutes, Occupational Therapy: 28 ([phone]) OT Evaluation Code Rationale: Diagnosis & Pertinent Co-Morbidities affecting Plan of Care: see PMHx Occupational Profile & Client History: Brief Expanded Extensive x Assessment of Occupational Performance: 1-3 performance deficits 3-5 performance deficits x 5 + performance deficits Clinical Decision Making: Low Moderate High x Clinical decision making of moderate complexity using standardized patient assessment instrument and measurable assessment of functional outcome. Pager: [phone] TONG MIKE OT 05/20/2023 Occupational Therapy Rehabilitation [...] 0600 and on the weekends please page [phone]. * Rylie Rodriguez MD - 05/19/2023 3:59 [...] and plan. Cynthia Blackburn MD Nephrology Pager: [phone] * Diana Espino - 05/19/2023 1:49 PM EDT Environmental Remediation Specialist Encounter Note Patient Name: Purnima Thacker : [id number] MR#: [id number] Admit Date: 05/08/2023 9:14 AM Hospital Day [...] as stated. Total Minutes, Physical Therapy: 38 ([phone]) Henrik Navarrete PTA Pager: [phone] Physical Therapy Inpatient Rehabilitation Department * Nico [...] 0600 and on the weekends please page [phone]. * Laure Ricks PA - 05/19/2023 7:56 [...] Ricks PA-C Interventional Radiology IR Team Pager [phone] * Consuelo Espinoza RN - 05/18/2023 4:13 PM EDT ANGIO NURSING DATABASE Name: Purnima Thacker Date of : 1955 AGE: 67 y.o. Address: [address] [place] [address] (home) Mobile: No relevant phone numbers on [...] Mild coronary artery disease by [facility] 11/09/2022 I25.10 Heart failure with [...] and plan. Cynthia Blackburn MD Nephrology Pager: [phone] * Magdalena Puri, SPOOL WINDER - 05/18/2023 10:51 AM EDT Images from the original note were not included. [facility] [place] [address] STRUCTURAL HEART DISEASE CONSULTATION NOTE PRIMARY CARE [...] stenosis. She is now status post TAVR Niejy-jc-Dibws with a 23 mm Lai 3 THV 05/12/[address] Sharma. Preliminary findings: Successful right transfemoral TAVR Fckid-my-Hcfds with a 23 mm Lai 3 THV. [...] Mild coronary artery disease by [facility] 11/09/2022 Heart failure with reduced [...] tablet 81 mg 81 mg Oral Daily LeedsMara ernandez APRN 81 mg at 05/18/23 0826 ondansetron (pf) (Zofran) (2 mg/mL) injection 4 mg 4 mg Intravenous Q8H PRN LeedsMara ernandez APRN4 mg at 05/12/23 0736 pantoprazole EC (Protonix) tablet 40 mg 40 mg Oral Daily LeedsMara ernandez APRN 40 mg at 05/18/23 0826 Or pantoprazole (Protonix) injection 40 mg 40 mg Intravenous Daily LeedsMara ernandez APRN 40 mg at 05/12/23 1004 senna-docusate (Pericolace) 8.6-50 mg per tablet 2 tablet 2 tablet Oral Daily MaggieMara ernandez APRN 2 tablet at 05/16/232111 bisacodyL (Dulcolax) suppository 10 mg 10 mg Rectal Daily PRN MaggieMara ernandez APRN melatonin tablet 6 mg 6 mg Oral Nightly PRN LeedsMara ernandez APRN 6 mg at 05/17/232024 influenza [...] stenosis. She is now status post TAVR Pofzt-yj-Clcgy with a 23 mm Lai 3 THV [...] Magdalena Puri APRN Structural Heart Team Pager [phone] Team Office Please see addendum by Dr. Sharma for final plan and recommendations Associated attestation - Antelmo Sharma MD - 05/19/2023 10:52 PM EDT I have reviewed Magdalena Puri APRN's above history and I agree with the details as written. The assessment and plan were formulated in discussion with me and I agree with them as documented. Antelmo Sharma MD Pager [phone] * Nico Palacios PA - 05/18/2023 8:13 [...] 0600 and on the weekends please page [phone]. * Loli Hernandez, PT - 05/17/2023 5:27 [...] plan as stated. Time IN / OUT: 5791-7714 Total Minutes, Physical Therapy: 54 Billing Code: te-sx2, te-f, angely HERNANDEZ PT Pager: [phone] Physical Therapy Inpatient Rehabilitation Department * Cynthia [...] Well controlled. Cynthia Blackburn MD Nephrology Pager: [phone] * Mara Serrano, SPOOL WINDER - 05/17/2023 8:26 AM EDT Cardiac Surgery [...] 0600 and on the weekends please page [phone]. * Guerda Del Valle C - 05/16/2023 10:44 AM EDT Nutrition Services Note - Low Nutrition Acuity Purnima Thacker is a 67 y.o. female Reason for intervention: hospital day 9 Nutrition Plan: Continue diet order Encourage good PO Lasix and Zofran noted Added special serve: open containers Monitor weight Patient scheduled for a hospital day 9 nutrition evaluation. Worm Sorter met with pt at bedside. Pt reports that her appetite and PO has much improved since admission. Denies nausea/vomiting or trouble chewing/swallowing. Worm Sorter provided snack list but pt not interested in adding snacks at this time. Her only concern was that she is worried that she will eat too much which will cause too much pressure in her stomach. Worm Sorter assured pt and suggested eating smaller but [...] Last Bowel Movement: 05/10/23 Guerda Del Valle Breakdown Mill Operator * Vinod Juárez PA - 05/16/2023 [...] 0600 and on the weekends please page [phone]. * Michael Jeffers MD - 05/16/2023 8:11 AM EDT Images from the original note were not included. Hypertension-Nephrology Inpatient Follow-up Purnima Thacker [id number] 1955 ID: 67 y.o. old female seen [...] IRONSAT 12 (L) 05/16/2023 SFOLATE >20.0 07/03/2022 [id number] 07/03/2022 Lab Results Component Value Date [...] Dr. Ayoub. Please contact me at phone: [phone] or pager: [phone] with any questions. Michael Jeffers MD Nephrology [...] -Nephrology consulted, labs and renal US ordered -[place] removed, ambulated around the unit -bilateral pleural [...] 0600 and on the weekends please page [phone]. * Hortencia Cody MD - 05/15/2023 2:07 [...] not included. Hypertension-Nephrology Inpatient Follow-up Purnima Thacker [id number] 1955 ID: 67 y.o. old female seen [...] HGB 7.8 (L) 05/13/2023 SFOLATE >20.0 07/03/2022 [id number] 07/03/2022 Lab Results Component Value Date [...] Dr. Ayoub. Please contact me at phone: [phone] or pager: [phone] with any questions. Michael Jeffers MD Nephrology [...] outlined inthis evaluation. HAVEN BA, PT Pager: [phone] Physical Therapy Inpatient Rehabilitation Department Time IN / OUT: 4831-8295 Total time: Total Minutes, Physical Therapy: 30 [...] 0600 and on the weekends please page [phone]. * Antelmo Sharma MD - 05/14/2023 7:56 AM EDT Images from the original note were not included. [facility] [place] [address] STRUCTURAL HEART DISEASE CONSULTATION NOTE PRIMARY CARE [...] stenosis. She is now status post TAVR Rshvl-wn-Ylexz with a 23 mm Lai 3 THV 05/12/[address] Sharma. Preliminary findings: Successful right transfemoral TAVR Xvmoa-mm-Ampga with a 23 mm Lai 3 THV. [...] perforation. Interval Events: - 05/12 Transferred to [facility] post- TAVR for pressor/inotropic support [...] Mild coronary artery disease by [facility] 11/09/2022 Heart failure with reduced [...] stenosis. She is now status post TAVR Qwzot-an-Zqfdo with a 23 mm Lai 3 THV 05/12/[address] Sharma. Janet TAVR case notable for coronary LAD protective MINNA. Status post TAVR, the patient was transferred to [facility] for pressor and inotropic support. Pressors weaned overnight 05/12. Cardiac indices by thermodilution remained >3 with continued Milrinone 0.125 mcg/kg/min prior to PAC removal. EKG todayNSR with stable IN/QRS intervals. Hemoglobin slowly down-trending (8.2-> 7.8-> 7.2). [...] Brody Kaplan APRN Structural Heart Team Pager [phone] Team Office Please see addendum by Dr. [...] exposure. Nephrology consultationtoday. Antelmo Sharma MD Pager [phone] * Antelmo Cardenas RN - 05/14/2023 5:18 AM EDT Pt AOx4, complaining of mild/moderate generalized pain (states her Meloxicam is effective at home) currently refusing prn oxycodone. NAEON, hemodynamically stable on Milrinone, Maps >65, ST in bkc327's down to NSR with frequent multifocal PVC's. [...] from the original note were not included. [facility] [place] [address] STRUCTURAL HEART DISEASE PROGRESS NOTE PRIMARY CARE [...] stenosis. She is now status post TAVR Gvfwc-zq-Lffue with a 23 mm Lai 3 THV 05/12/[address] Sharma. Preliminary findings: Successful right transfemoral TAVR Qxend-ya-Lsgzh with a 23 mm Lai 3 THV. [...] Mild coronary artery disease by [facility] 11/09/2022 Heart failure with reduced [...] stenosis. She is now status post TAVR Inrty-xh-Dogvt with a 23 mm Lai 3 THV 05/12/[address] Sharma. Janet TAVR case notable for coronary LAD protective MINNA. Status post TAVR, the patient was transferred to [facility] for pressor and inotropic support. Pressors weaned overnight. Cardiac indices by thermodilution remain greater than 3 with continued Milrinone 0.125 mcg/kg/min. EKG today NSR with stable IN/QRS intervals. Hemoglobin 7.8 [...] Brody Kaplan APRN Structural Heart Team Pager [phone] Team Office Please see addendum by Dr. [...] DAPT moving forward. Antelmo Sharma MD Pager [phone] * Bonita Miguel PA - 05/13/2023 8:30 AM EDT Cardiac Surgery Progress Note Purnima Thacker is a 67 y.o. 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 PMH of s/p tissue AVR (2017), mixed connective tissue disease HTN, HLD, NICOLAS, diverticulosis, rosacea, essential tremor, and depression. 24h Events: From [facility] for above procedure Extubated at ~1600 to [...] soft b/l, no evidence of hematoma. Tubes/Lines/Drains: [place], RIJ, A-line, Art, PIV Assessment/Plan: 67 y.o. [...] 0600 and on the weekends please page [phone]. * Onelia Schwartz MD - 05/12/2023 1:44 [...] Mild coronary artery disease by [facility] 11/09/2022 Heart failure with reduced [...] FiO2 weaned to 40%. 1105: ABG 7.34/42/73/22 7256-2526: SBT performed and passed on these settings [...] PCP: Magdalena Acosta MD PCP phone number: [phone] Date of Admission: 05/08/2023 ( Hospital Day [...] 1447 PHART -- 7.34* 7.34* -- -- LJP1PAP -- 30* 30* -- -- PO2ART -- 72* 81* -- -- ZCE3KAG -- 16.0* 15.7* -- -- LACTATEVEN 2.4* 2.7* 2.7* 4.8* 2.9* VBG (Venous Blood Gas) Recent Labs 05/12/23 0700 05/12/238 05/12/2310505/11/23193905/11/23 144 LACTATEVEN 2.4* 2.7* 2.7* 4.8* 2.9* Mixed Venous Sat Recent Labs 05/12/23 0508 05/12/23 0321 05/12/23 0114 05/12/23 0030 [id number] 30.7 32.7 37.3 25.1 Objective: Vitals Last [...] questions please contact the health managed care analyst that requested your imaging first. Electronically signed by: ALIX RUVALCABA MD, [facility] ([phone]), at 05/10/2023 1:[address] Cardiac for [...] questions please contact the health managed care analyst that requested your imaging first. Electronically signed by: Cullen Narayanan MD, [facility] ([phone]), at 05/11/2023 4:[address] Angiogram Abdomen [...] questions please contact the health managed care analyst that requested your imaging first. Electronically signed by: Eileen Gomes MD, [facility] ([phone]), at 05/11/2023 2:42 PM XR Chest One [...] questions please contact the health managed care analyst that requested your imaging first. Chest [...] questions please contact the health managed care analyst that requested your imaging first. Assessment [...] and inotrope. She is planned for a wsbhi-dh-rppaz TAVR this morning, which should hopefully improve [...] MD, FACP, FACC Section of Cardiovascular Medicine [facility] Surgeonsupply chain technician [facility] * Noreen Deutsch RN - 05/12/2023 5:21 [...] Mild coronary artery disease by [facility] 11/09/2022 Heart failure with reduced [...] 05/11/2023 4:11 PM EDT Reported off to TRAUMA DOCTOR and pt transferred over in the bed for higher level of care. * Antelmo Sharma MD - 05/11/2023 9:45 AM EDT Images from the original note were not included. [facility] [place] [address] STRUCTURAL HEART DISEASE CONSULTATION NOTE PRIMARY CARE [...] who had been referred for possible TAVR aavhh-vs-jurcl evaluation. Her primary symptoms are of dyspnea [...] [facility]. 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 [...] Mild coronary artery disease by [facility] 11/09/2022 Heart failure with reduced [...] blood, send to lab ([facility]) Result Value Ref Range Lactate WB 3.1 (H) 0.5 - 2.2 mmol/L Heparin (unfractionated) Level Result Value Ref Range Heparin UFH Level 0.46 IU/mL Lactate, whole blood, send to lab ([facility]) Result Value [...] leads Confirmed by MD Harshil, Enrique Bell ([id number]) on 05/10/2023 8:11:46 AM Cardiac Cath 11/09/2022 [...] alert Dr. Hudson of her inpatient status, [place] primary cardiac surgeon. Based on recent clinic visit, tentative plan had been for TAVR JANET issa ferrera given her chronological age. Cardiac cath 11/09/2022 notable for non-obstructive coronary disease. TAVR CTAs planned for today. Will review her case with cardiac surgery to determine best timing and therapies for her valve intervention. Addendum 05/11/2023 6:48 PM Due to decompensating HFrEF, she was transferred to [facility] this afternoon for further management. TAVR CT imaging support for adequate ileofemoral access. Given her acute deterioration today, will planfor RTF TAVR on 05/12/2023. Brody Kaplan APRN Structural Heart Disease Pager [phone] Please see addendum by Dr. Sharma for [...] signed and dated. Antelmo Sharma MD Pager [phone] * Harini Lance MD - 05/11/2023 6:06 AM EDT Images from the original note were not included. Cardiology Progress Note Patient info: Name: Purnima Thacker : 1955 PCP: Magdalena Acosta MD PCP phone number: [phone] Date of Admission: 05/08/2023 ( Hospital Day [...] questions please contact the health managed care analyst that requested your imaging first. 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 I have interviewed and examined the patient, reviewed the available data, and have discussed my findings, assessment and plan with the patient and the team on rounds today. I agree with Dr. Lance's note as below which reflects our discussion. * Harini Lacne MD - 05/09/2023 7:46 AM EDT Images from the original note were not included. Cardiology Progress Note Patient info: Name: Purnima Thacker : 1955 PCP: Magdalena Acosta MD PCP phone number: [phone] Date of Admission: 05/08/2023 ( Hospital Day [...] Gas) No results found for: PHART, PO2ART, BUM8SPG, JFT0FSD Microbiology: Microbiology Results (Last 30 days) No [...] Mild coronary artery disease by [facility] 11/09/2022 Hyperlipidemia, unspecified NICOLAS (obstructive [...] Mild coronary artery disease by [facility] 11/09/2022 I25.10 Heart failure with reduced ejection fraction due to heart valve disease I50.20, I38 Cardiogenic shock R57.0 S/P TAVR (transcatheter aortic valve replacement) Z95.2 Past Medical History: Diagnosis Date Anemia Past Surgical History: Procedure Laterality Date PRG CATH PLWV LEFT HEART CATH & ARTS W/INJ & ANGIO IMG S&I N/A 11/09/2022 CORONARY ANGIOGRAPHY; W [facility],POSSIBLE PCI (WRVU 5.6) performed by Mario Alberto Escobedo MD at [facility] CATH LABS PRO AORTOPLAS FOR SUPRAVALV STEN N/A 09/21/2016 @AORTOPLASTY FOR SUPRAVALVULAR STENOSIS (WRVU 29.33) performed by Alirio Hudson MD at [facility] MAIN OR PRO REPLACEMENT PROSTHETIC AORTIC VALVE OPEN W CARDIOPULMONARY BYPASS HOMOGRF/STENT N/A 09/21/2016 @REPLACE AORTIC VALVE, OPEN, W\CPB, W\PROSTHETIC VALVE (WRVU 41.32) performed by Alirio Hudson MD at [facility] MAIN OR Social History and Habits: [...] Mild coronary artery disease by [facility] 11/09/2022 I25.10 Heart failure with reduced ejection fraction due to heart valve disease I50.20, I38 Cardiogenic shock R57.0 S/P TAVR (transcatheter aortic valve replacement) Z95.2 Past Medical History: Diagnosis Date Anemia Past Surgical History: Procedure Laterality Date PRG CATH PLWV LEFT HEART CATH & ARTS W/INJ & ANGIO IMG S&I N/A 11/09/2022 CORONARY ANGIOGRAPHY; W [facility],POSSIBLE PCI (WRVU 5.6) performed by Mario Alberto Escobedo MD at [facility] CATH LABS PRO AORTOPLAS FOR SUPRAVALV STEN N/A 09/21/2016 @AORTOPLASTY FOR SUPRAVALVULAR STENOSIS (WRVU 29.33) performed by Alirio Hudson MD at [facility] MAIN OR PRO REPLACEMENT PROSTHETIC AORTIC VALVE OPEN W CARDIOPULMONARY BYPASS HOMOGRF/STENT N/A 09/21/2016 @REPLACE AORTIC VALVE, OPEN, W\CPB, W\PROSTHETIC VALVE (WRVU 41.32) performed by Alirio Hudson MD at [facility] MAIN OR Social History and Habits: [...] days, which prompted her to present to [employer] [employer]. She also endorses some intermittent retrosternal chest pain with exertion.She endorses some dizziness with exertion, but has not gotten faint or passed out. At [facility] she was noted to be afebrile, blood pressure 105/64, HR 120s, satting 95% on 2L NC. Labs from [facility] are below, of note [...] 89/59, which prompted the transfer to us. [facility] labs: CBC - Hgb 10.5 CMP - Cr 1.1 BNP 58040 HsTrop 1358 Lactate 1.6 D-dimer 1183 Interval History Patient was admitted to [facility] due to concern on low [...] Klaudia Reid MD Internal Medicine PGY-1 Pager [phone], M1-S1 Service Associated attestation - Juan Luis Gonzalez MD - 05/08/2023 10:00 PM EDT Cardiology Attending Addendum Active Hospital Problems Diagnosis Symptomatic severe aortic stenosis with low ejection fraction Heart failure with reduced ejection fraction due to heart valve disease Mild coronary artery disease by [facility] 11/09/2022 Hyperlipidemia, unspecified History of [...] PCP: Magdalena Acosta MD PCP phone number: [phone] Date of Admission: 05/08/2023 ( Hospital Day 0 days ) Attending:Enrique Chua MD ID: Purnima Thacker is a 67 y.o. female w/ PMH of s/p bioprosthetic AVR in 2016 with recent concern for severe restenosis, HTN, HLD, mixed connective tissue disease, who presents in transfer from [facility] with worsening BONILLA and [...] four days, which promptedher to present to [employer] [facility]. She also endorses some intermittent retrosternal chest pain with exertion. She endorses some dizziness with exertion, but has not gotten faint or passed out. At [facility] she was noted to be afebrile, blood pressure 105/64, HR 120s, satting 95% on 2L NC. Labs from [facility] are below, of note [...] 89/59, which prompted the transfer to us. [facility] labs: CBC - Hgb 10.5 CMP - Cr 1.1 BNP 31102 HsTrop 1358 Lactate 1.6 D-dimer 1183 Vasoactive [...] tissue disease, who [facility] BONILLA and weight [...] to the planned procedure. Hand Hygiene: The last inserter did perform hand hygiene prior to [...] Successful arterial line placement. Crispin Timmons MD Hvac Installation Technician Associated attestation - Onelia Schwartz MD - [...] (flow was non-pulsatile) and appearance of blood. [place] catheter was placed and locked at 55 [...] information for follow-up [facility], [place] [address] [place] [address] Cardiac Rehab, [place] [id number] [place] [address] [facility], [place] [address] [place] [address] Transportation: family or friend will provide *Brother [...] Type: *No Product type* / Secondary Insurance: [employer] [place] Prescription Coverage: Yes This plan was formulated with input from patient, family (please identify family/friend involved ifapplicable) and team. All are in agreement with plan. Aliza Martino MSN-Ed, RN ACM stewardesses teacher Office of Care Management Pager #[phone] * Plan of Care - Favian Mckeon [...] Lana Chaudhary RN - 05/21/2023 4:46 PM EDTSumbry[facility]: [place] [facility] referral OFFICE OF CARE MANAGEMENT [...] Type: *No Product type* / Secondary Insurance: [employer] [facility] [place] Last Physical Therapy Recommendation: (Home [...] describing our affiliations within the [facility] and educate about their right to choose where referrals are sent. provide a list of Home Health Agencies / Durable Medical Equipment vendors which serve their preferred geographic area. They have requested referrals to: [facility] [address] [place] [address] [facility] [place], [place] Note routed to a Audio Video Mechanic who will communicate referrals to facilities and provide any required information. Transportation: family or friend will provide *Brother Raymond on Tuesday 05/22 at 1000 Barriers to discharge: Does not have home 22/02 assist available until tomorrow Tuesday 05/22 Plan going forward: Discharge home into the 22/02 home care of brother Raymond with [facility] and [facility] [facility] PT/OT services on Tuesday 05/22 [...] Attending: All Staff: Staff Role Juanita Almaguer Carder Blankets Laure Ricks PA Physician Injection Specialist Magdalena Rodriguez RN Radiology Nurse Consuelo Espinoza senior bookkeeper Nurse Post-operative diagnosis/Indication: Right pleural effusion Name [...] Type: *No Product type* / Secondary Insurance: [employer] [facility] [place] Last Physical Therapy Recommendation: penitentiary [...] Office of Care Management letter from the Mask Inspector pertaining to rehab referrals. provide a letter describing our affiliations within the [facility] and educate about their right to choose where referrals are sent. provide the CMS Star Quality Rating handout. review the different levels of rehab including SNF, swing, and acute. provide a list of facilities within their preferred geographic area. request that they provide at least three choices for referral. They have requested referrals to: [facility] [address] [place] [address] [facility] ([facility]) [address] [place] [address] (Accepts pts only after exhausting all other local SNF options) [facility] (Swing) ([facility]) [address] [place] [address] PHONE: [phone] FAX: [phone] [facility] ([facility]) [facility]) [address] [place] [address] PHONE: [phone] FAX: [phone] Note routed to a Audio Video Mechanic who will communicate referrals to facilities and [...] the outpatient Phase 2 Cardiac Rehabilitation at [facility]. The patient agrees to [...] from the original note were not included. [facility] NEPHROLOGY/HYPERTENSION CONSULT NOTE PATIENT: Purnima [...] in her course. She ultimately underwent a fbyeh-dq-efkbk procedure on and tolerated it well (see operative details). [facility] on some pressors support.. [...] 1423 05/12/23 1105 PHART 7.39 7.37 7.34* NKI5AMU 33* 36 42 PO2ART 101 102 73* IFU7STE 19.5* 20.4 22.1 LACTATEVEN 1.5 1.8 2.8* MKI3TQQ 40 40 40 PFRATIOART2 252 255 182 VBG (Venous Blood Gas) Recent Labs 05/12/23 1557 05/12/23 1423 05/12/23 1105 LACTATEVEN 1.5 1.8 2.8* Mixed Venous Sat Recent Labs 05/12/23 1425 05/12/23 0508 05/12/23 0321 C3PAPJ6 59.9 30.7 32.7 LFT's: Recent Labs 05/14/23 0110 05/13/23 0115 05/12/23 0600 BILITOT 0.4 0.5 0.9 BILIDIR -- 0.3 -- ALBUMIN 3.6 3.0* 3.5 ALKPHOS 86 85 100 ALT 437* 903* 1,174* AST 319* 792* 1,435* No results found for: UPROTCREAT No results found for: TPROTEINPEP, ALBELECT No results found for: MICROALBUR, [id number] No results found for: HA1C Lab Results Component Value Date CALCIUM 8.5 05/14/2023 PHOS 4.7 (H) 05/08/2023 No results found for: 25OHVITD MICROBIOLOGY: ProcedureComponentValueUnitsDate/TimeUrine culture [[id number]]Collected: 05/11/231921Lab Status: Final resultSpecimen: Clean Catch UrineUpdated: [...] consulted for assessment if this patient needs UNIVERSITY PRESIDENT. Atthis time, we can likely hold off on UNIVERSITY PRESIDENT. Her volume status appears sufficient and her metabolic kanwal angements with mild acidosis is not too profound. Patient does not have significant uremic symptoms. We can hold off for today, but the patient is a high risk candidate for needing UNIVERSITY PRESIDENT in future daysespecially if her Cr curve trends the direction it is for the next several days. S/p Ultgo-kv-Hypzp TF TAVR: Management per cardiology. On milrinone gtt. PLAN: - Please obtain following diagnostics: renal US, urinalysis, urine prot/Cr ratio, urine albumin/Cr ratio, CK, uric acid, serum osmol, daily VBGs - No acute indications for UNIVERSITY PRESIDENT/dialysis. We will keep close eye on Cr trend, volume status, and metabolics to ensure patient still does not need UNIVERSITY PRESIDENT as she ensues intrinsic renal recovery - [...] M.H.Katherine., M.A. PGY-V Nephrology-Hypertension Fellow Page # [phone] [facility] [address] 2nd floor, Capital Project Engineer [address] [place] [address] * Care Management - Mario Alberto Olmos [...] Type: *No Product type* / Secondary Insurance: [facility] Plan for discharge is: Home w/o [...] for a TAVR at 730. Returned to [facility] at 0945. Was intubated in the [place]yer cork slabs due to agitation. Maintained bedrest for 5 [...] Operative Note Patient Name: Purnima Thacker : [id number] MR#: [id number] Case Date: 05/12/2023 Surgeon: Surgeon(s) and Role: [...] procedure Note: Patient Name: Purnima Thacker : [id number] MR#: [id number] Case Date: 05/12/2023 Operators Surgeon: Surgeon(s) and [...] main with 4.0 x 30 mm Resolute [place] Drug Eluting Stent Perclose x1 + Angio-seal 8 Fr x1, RFA Manual pressure, LFA Manual pressure, LFV Endotracheal intubation (performed by cardiac anesthesia) Preliminary findings: Successful right transfemoral TAVR Abhpf-si-Itbht with a 23 mm Lai 3 THV. [...] MD, M.Sc. Structural Heart Disease Fellow Pager :[phone] Antelmo Sharma MD Pager [phone] * Op Note - Alirio Hudson MD - 05/12/2023 7:37 AM EDT Preop Diagnosis: Severe aortic stenosis, symptomatic. Postop Diagnosis: Same. Procedure: Transfemoral TAVR procedure with 23mm valve. Surgeon: Alirio Hudson M.D. Refractory Repairer: Danny CULP Procedure: The patient was taken to the [place] slabs. The patient had monitored anesthesia care. 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 [facility] [place] [address] STRUCTURAL HEART DISEASE CONSULTATION NOTE PRIMARY CARE [...] who had been referred for possible TAVR ryzmg-lf-jolod evaluation. Her primary symptoms are of dyspnea [...] [facility]. 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 [...] Mild coronary artery disease by [facility] 11/09/2022 Heart failure with reduced [...] blood, send to lab ([facility]) Result Value [...] leads Confirmed by MD Harshil, Enrique Bell ([id number]) on 05/10/2023 8:11:46 AM Assessment and Plan: [...] alert Dr. Hudson of her inpatient status, [place] primary cardiac surgeon. Based on recent clinic [...] Antelmo Sharma MD Structural Heart Disease Pager [phone] * Plan of Care - Sarahi Nice RN - 05/10/2023 3:55 AM EDTSumavis: RN Note and Care Plan Sarahi Nice RN assumed care of pt at time of their arrival to room 362 from [facility]. Pt voices shortness of breath [...] VTE (Venous Thromboembolism) Risk Flowsheets (Taken 05/09/2023 4666) VTE Prevention/Management: anticoagulant therapy Intervention: Prevent Infection [...] listening utilized Taken 05/08/20231999 by Alivia Kauffman hamper maker/Support System Care: self-care encouraged support provided Problem: [...] Transfer from another hospital Location: admitted from [facility] Reason for Hospitalization: Critical aortic stenosis, causing symptoms Past medical History: Past Medical History: Diagnosis Date Anemia Hospitalizations Within the Past 30 Days: no previous admission in last 30 days Current Decision-Making Capacity: Self If AD's have not been completed the following surrogate would be surrogate decision maker per [place] surrogate decision making law. (Only good for 180 days) Any patient receiving care in [place] must abide by [place] law. The hierarchy for surrogate decision making [...] (i) The agent with financial power of attorney general or a conservator appointed in accordance with [...] DME: none Home Address confirmed as: [address] [place] [place] [address] Social & Family Supports: All names listed [...] Type: *No Product type* / Secondary Insurance: [facility] ONLY if patient has Medicare A&B - Does this patient have secondary insurance?: Yes ; Prescription Coverage: Yes Preferred Pharmacy: updated to [facility] Status: Patient is a : No Primary Care Provider confirmed: Magdalena Acosta MD [phone] Patient/Caregiver Goals of Treatment: Potential Needs for [...] transition of care planning. Alie Bradshaw RN, Pager-[phone] * Plan of Care - Emily Lucero RN - 05/08/2023 2:54 PM EDT OUTCOME EVALUATION NOTE: OUTCOME SUMMARY: Pt arrived from [facility]. A&O, no c/o pain [...] Office Visit Dermatology at [place] [address] [place] [id number] Marek Bonilla MD [address] [place] [address] Scheduled Referrals Name Type Priority Associated Diagnoses [...] Heart Cath W/Inj L Ventriculography, Img S&I ([id number]) 05/12/2023 7:37 AM EDT Aortic valve stenosis, [...] DOPP COLOR DOPP (07/08/2023 12:15 PM EST) [facility] EF 20 HEARTLAB SYSTEM Anatomical Region Laterality Modality Cardiac Other 07/08/2023 10:3 1 AM EST Narrative 07/08/2023 12:26 PM EST [address] [place] [address] ? Echocardiogram Report Name: PURNIMA THACKER ?Study Date: 07/08/2023 10:31 AMBP: 118/60 mmHg ? Patient Location: : 1955 ? Height: 155 cm ? Account: [id number] Age: 67 yrs ? Weight: 74 kg [...] no significant change (post-procedure). Procedure Limited - 86386. Doppler - 18184. Color Doppler - 42598. Satisfactory quality. This study is limited because [...] Note Lee Kincaid MD - 07/08/2023 [address] [place] [address] Echocardiogram Report Name: KIRSTIE PURNIMA M Study Date: 310:31 AMBP: 118/60 mmHg Patient Location: : 1955 Height: 155 cm Account: [id number] Age: 67 yrs Weight: 74 kg Gender: [...] is nosignificant change (post-procedure). Procedure Limited - 21493. Doppler - 16574. Color Doppler - 53705. Satisfactoryquality. This study is limited because of [...] EST) Glucose 93 65 - 199 mg/dL [facility] Comment:Diabetes: >=200 mg/d L plus symptoms Blood Urea Nitrogen 19(H) 8 - 18 mg/dL [facility] Creatinine 0.81 0.70 - 1.20 mg/dL [facility] Sodium 142 135 - 145 mmol/L [facility] Potassium 3.8 3.5 - 5.0 mmol/L [facility] Comment: Please note: ??Patients with WBC >100,000 may have falsely elevated Potassium levels. ??For accurate Potassium quantification in these patients send serum separator tube (gold top) for subsequent determinations. ??Contact the Clinical Chemistry Laboratory if there are any questions. Chloride 104 98 - 107 mmol/L [facility] Carbon Dioxide 26 22 - 31 mmol/L [facility] Anion Gap 12 5 - 15 mmol/L [facility] Calcium 10.2 8.5 - 10.5 mg/dL [facility] Protein, Total 7.4 6.1 - 8.0 g/dL [facility] Albumin 4.1 3.2 - 5.2 g/dL [facility] Aspartate Aminotransferase 24 0 - 30 unit/L [facility] Alanine Aminotransferase 12 0 - 30 unit/L [facility] Alkaline Phosphatase 93 35 - 105 unit/L [facility] Bilirubin, Total 0.3 0.2 - 1.3 mg/dL [facility] Est Glomerular Filtration Rate 80 >=60 mL/min/1. 73 m?? [facility] Comment: This patient's estimated GFR [...] Lab Alirio Hudson MD CHEMISTRY ORDERABLE S [facility] [place] [address] * (ABNORMAL) Basic Metabolic Panel (non-fasting) (05/22/2023 3:57 AM EDT) Pathologist [facility] Glucose 88 65 - 199 mg/dL [facility] Comment:Diabetes: >=200 mg/d L plus symptoms Blood Urea Nitrogen 21(H) 8 - 18 mg/dL [facility] Creatinine 0.69(L) 0.70 - 1.20 mg/dL [facility] Sodium 136 135 - 145 mmol/L [facility] Potassium 3.6 3.5 - 5.0 mmol/L [facility] Comment: Please note: ??Patients with WBC >100,000 may have falsely elevated Potassium levels. ??For accurate Potassium quantification in these patients send serum separator tube (gold top) for subsequent determinations. ??Contact the Clinical Chemistry Laboratory if there are any questions. Chloride 102 98 - 107 mmol/L [facility] Carbon Dioxide 23 22 - 31 mmol/L [facility] Anion Gap 11 5 - 15 mmol/L [facility] Calcium 8.6 8.5 - 10.5 mg/dL [facility] Est Glomerular Filtration Rate 95 >=60 mL/min/1. 73 m?? [facility] Comment: This patient's estimated [...] Agency Comment Spec In Lab Mara Serrano [employer] CHEMISTRY ORDERABL ES [facility] [place] [address] * (ABNORMAL) Basic Metabolic Panel (non-fasting) (05/21/2023 5:06 AM EDT) Glucose 87 65 - 199 mg/dL [facility] Comment:Diabetes: >=200 mg/d L plus symptoms Blood Urea Nitrogen 25(H) 8 - 18 mg/dL [facility] Creatinine 0.84 0.70 - 1.20 mg/dL [facility] Sodium 136 135 - 145 mmol/L [facility] Potassium 3.6 3.5 - 5.0 mmol/L [facility] Comment: Please note: ??Patients with WBC >100,000 may have falsely elevated Potassium levels. ??For accurate Potassium quantification in these patients send serum separator tube (gold top) for subsequent determinations. ??Contact the Clinical Chemistry Laboratory if there are any questions. Chloride 102 98 - 107 mmol/L [facility] Carbon Dioxide 26 22 - 31 mmol/L [facility] Anion Gap 8 5 - 15 mmol/L [facility] Calcium 8.9 8.5 - 10.5 mg/dL [facility] Est Glomerular Filtration Rate 76 >=60 mL/min/1. 73 m?? [facility] Comment: This patient's estimated GFR [...] Narrative Resulting Agency Comment Spec In Lab [facility] [employer] CHEMISTRY ORDERABL ES Performing Organization Address [facility] Co de Phone Number [facility] [place] [address] * Lavender Tube HOLD (05/20/2023 2:52 AM EDT) Lavender Hold Sample in lab. [facility] Blood Venous Draw / Unknown 05/20/2023 2:52 AM EDT 05/20/2023 3:04 AM EDT Mara Leeds [employer] HEMATOLOGY ORDERAB LES Performing Organization Address [facility] de Phone Number [facility] [place] [address] * (ABNORMAL) Basic Metabolic Panel (non-fasting) (05/20/2023 2:52 AM EDT) Glucose 152 65 - 199 mg/dL [facility] Comment:Diabetes: >=200 mg/d L plus symptoms Blood Urea Nitrogen 33(H) 8 - 18 mg/dL [facility] Creatinine 0.82 0.70 - 1.20 mg/dL [facility] Sodium 137 135 - 145 mmol/L [facility] Potassium 3.7 3.5 - 5.0 mmol/L [facility] Comment: Please note: ??Patients with WBC >100,000 may have falsely elevated Potassium levels. ??For accurate Potassium quantification in these patients send serum separator tube (gold top) for subsequent determinations. ??Contact the Clinical Chemistry Laboratory if there are any questions. Chloride 99 98 - 107 mmol/L [facility] Carbon Dioxide 22 22 - 31 mmol/L [facility] Anion Gap 16(H) 5 - 15 mmol/L [facility] Calcium 9.0 8.5 - 10.5 mg/dL [facility] Est Glomerular Filtration Rate 78 >=60 mL/min/1. 73 m?? [facility] Comment: This patient's estimated GFR [...] Agency Comment Spec In Lab Mara Thomasfield [employer] CHEMISTRY ORDERABL ES Performing Organization Address [facility] Co de Phone Number [facility] [place] [address] * (ABNORMAL) Potassium (05/20/2023 2:52 AM EDT) [facility] Signature Potassium 3.4(L) 3.5 - 5.0 mmol/L [facility] Comment: Please note: ??Patients with WBC >100,000 may have falsely elevated Potassium levels. ??For accurate Potassium quantification in these patients send serum separator tube (gold top) for subsequent determinations. ??Contact the Clinical Chemistry Laboratory if there are any questions. Blood 05/20/2023 2:52 AM EDT 05/20/2023 3:03 AM EDT Narrative Resulting Agency Comment Spec In Lab Mara Leeds [employer] CHEMISTRY ORDERABL ES Performing Organization Address City/[facility] Co de Phone Number [facility] [place] [address] * XR Chest PA & Lateral (Generic) [...] questions please contact the health managed care analyst that requested your imaging first. ? Electronically signed by: Chyna Johnson MD, [facility] ??([phone]), at 05/19/2023 2:19 PM Narrative 05/19/2023 2:19 [...] have questions please contactthe health managed care analyst that requested your imaging first. Electronically signed by: Chyna Johnson MD, [facility]([phone]), at 05/19/2023 2:19 PM Alirio Hudson MD IMG DX ORDERABLES * (ABNORMAL) Basic Metabolic Panel (non-fasting) (05/19/2023 5:49 AM EDT) Glucose 93 65 - 199 mg/dL [facility] Comment:Diabetes: >=200 mg/d L plus symptoms Blood Urea Nitrogen 45(H) 8 - 18 mg/dL [facility] Creatinine 1.02 0.70 - 1.20 mg/dL [facility] Sodium 138 135 - 145 mmol/L [facility] Potassium 3.9 3.5 - 5.0 mmol/L [facility] Comment: Please note: ??Patients with WBC >100,000 may have falsely elevated Potassium levels. ??For accurate Potassium quantification in these patients send serum separator tube (gold top) for subsequent determinations. ??Contact the Clinical Chemistry Laboratory if there are any questions. Chloride 102 98 - 107 mmol/L [facility] Carbon Dioxide 26 22 - 31 mmol/L [facility] Anion Gap 10 5 - 15 mmol/L [facility] Calcium 9.7 8.5 - 10.5 mg/dL [facility] Est Glomerular Filtration Rate 60 >=60 mL/min/1. 73 m?? [facility] Comment: This patient's estimated [...] Agency Comment Spec In Lab Mara Serrano [employer] CHEMISTRY ORDERABL ES [facility] [place] [address] * IR Chest Tube Placement Right (05/18/2023 [...] EDT) Glucose 95 65 - 199 mg/dL [facility] Comment:Diabetes: >=200 mg/d L plus symptoms Blood Urea Nitrogen 71(H) 8 - 18 mg/dL [facility] Comment:result rechecked-[facility] Creatinine 1.64(H) 0.70 - 1.20 mg/dL [facility] Comment:result rechecked-[facility] Sodium 137 135 - 145 mmol/L [facility] Potassium 3.7 3.5 - 5.0 mmol/L [facility] Comment: Please note: ??Patients with WBC >100,000 may have falsely elevated Potassium levels. ??For accurate Potassium quantification in these patients send serum separator tube (gold top) for subsequent determinations. ??Contact the Clinical Chemistry Laboratory if there are any questions. Chloride 100 98 - 107 mmol/L [facility] Carbon Dioxide 24 22 - 31 mmol/L [facility] Anion Gap 13 5 - 15 mmol/L [facility] Calcium 9.7 8.5 - 10.5 mg/dL [facility] Est Glomerular Filtration Rate 34(L) >=60 mL/min/1. 73 m?? [facility] Comment: This patient's estimated GFR [...] Agency Comment Spec In Lab Mara Serrano [employer] CHEMISTRY ORDERABL ES [facility] [place] [address] * XR Chest PA & Lateral (Generic) [...] questions please contact the health managed care analyst that requested your imaging first. ? [...] have questions please contactthe health managed care analyst that requested your imaging first. Electronically signed by: Ghassan Reyes MD, [facility]([phone]), at 05/17/2023 11:46 AM Alirio Hudson MD IMG DX ORDERABLES * (ABNORMAL) Comprehensive metabolic panel (non-fasting) (05/17/2023 4:35 AM EDT) Glucose 89 65 - 199 mg/dL [facility] Comment:Diabetes: >=200 mg/d L plus symptoms Blood Urea Nitrogen 97(H) 8 - 18 mg/dL [facility] Creatinine 2.97(H) 0.70 - 1.20 mg/dL [facility] Comment:result rechecked-JSJc Sodium 135 135 - 145 mmol/L [facility] Potassium 4.1 3.5 - 5.0 mmol/L [facility] Comment: Please note: ??Patients with WBC >100,000 may have falsely elevated Potassium levels. ??For accurate Potassium quantification in these patients send serum separator tube (gold top) for subsequent determinations. ??Contact the Clinical Chemistry Laboratory if there are any questions. Chloride 97(L) 98 - 107 mmol/L [facility] Carbon Dioxide 22 22 - 31 mmol/L [facility] Anion Gap 16(H) 5 - 15 mmol/L [facility] Calcium 9.6 8.5 - 10.5 mg/dL [facility] Protein, Total 6.5 6.1 - 8.0 g/dL [facility] Albumin 3.7 3.2 - 5.2 g/dL [facility] Aspartate Aminotransferase 58(H) 0 - 30 unit/L [facility] Alanine Aminotransferase 66(H) 0 - 30 unit/L [facility] Alkaline Phosphatase 86 35 - 105 unit/L [facility] Bilirubin, Total 0.6 0.2 - 1.3 mg/dL [facility] Est Glomerular Filtration Rate 17(L) >=60 mL/min/1. 73 m?? [facility] Comment: This patient's estimated GFR [...] Lab Alirio Hudson MD CHEMISTRY ORDERABLE S [facility] [place] [address] * Potassium (05/16/2023 11:15 PM EDT) Potassium 3.7 3.5 - 5.0 mmol/L [facility] Comment: Please note: ??Patients with [...] MD CHEMISTRY ORDERABLE S Performing Organization Address [facility] Co de Phone Number [facility] [place] [address] * Magnesium (05/16/2023 5:22 PM EDT) Magnesium 0.96 0.69 - 1.07 mmol/L [facility] Blood 05/16/2023 5:22 PM EDT 05/16/2023 5:27 PM EDT Narrative Resulting Agency Comment Spec In Lab Alirio Hudson MD CHEMISTRY ORDERABLE S Performing Organization Address [facility] Co de Phone Number [facility] [place] [address] * (ABNORMAL) Basic Metabolic Panel (non-fasting) (05/16/2023 5:22 PM EDT) Glucose 106 65 - 199 mg/dL [facility] Comment:Diabetes: >=200 mg/d L plus symptoms Blood Urea Nitrogen 103(H) 8 - 18 mg/dL [facility] Creatinine 3.91(H) 0.70 - 1.20 mg/dL [facility] Comment:result rechecked-imm Sodium 132(L) 135 - 145 mmol/L [facility] Potassium 3.6 3.5 - 5.0 mmol/L [facility] Comment: Please note: ??Patients with WBC >100,000 may have falsely elevated Potassium levels. ??For accurate Potassium quantification in these patients send serum separator tube (gold top) for subsequent determinations. ??Contact the Clinical Chemistry Laboratory if there are any questions. Chloride 92(L) 98 - 107 mmol/L [facility] Carbon Dioxide 22 22 - 31 mmol/L [facility] Anion Gap 18(H) 5 - 15 mmol/L [facility] Calcium 9.7 8.5 - 10.5 mg/dL [facility] Est Glomerular Filtration Rate 12(L) >=60 mL/min/1. 73 m?? [facility] Comment: This patient's estimated GFR [...] Lab Alirio Hudson MD CHEMISTRY ORDERABLE S [facility] [place] [address] * (ABNORMAL) Potassium (05/16/2023 11:43 AM EDT) [facility] Signature Potassium 3.3(L) 3.5 - 5.0 mmol/L [facility] Comment: Please note: ??Patients with [...] Lab Alirio Hudson MD CHEMISTRY ORDERABLE S [facility] [place] [address] * (ABNORMAL) Ferritin (05/16/2023 4:41 AM EDT) Ferritin 1,813(H) 30 - 400 ng/mL [facility] Comment: Pediatric reference ranges not verified at [facility], interpret with caution. Reference ranges for females greater than 50 years of age approach values for men, i.e., 30-400 ng/mL. Blood 05/16/2023 4:41 AM EDT 05/16/2023 4:54 AM EDT Narrative Resulting Agency Comment Spec In Lab Kristopher Ayoub MD CHEMISTRY ORDERABLES [facility] [place] [address] * (ABNORMAL) PTH (05/16/2023 4:41 AM EDT) [facility] Parathyroid Hormone 120(H) 15 - 65 pg/mL [facility] Blood 05/16/2023 4:41 AM EDT 05/16/2023 4:54 AM EDT Narrative Resulting Agency Comment Spec In Lab Kristopher Ayoub MD CHEMISTRY ORDERABLES Performing Organization Address City/[facility]/ZIP Co de Phone Number [facility] [place] [address] * Vitamin D, 25-Hydroxy (05/16/2023 4:41 AM EDT) Pathologist [facility] Vitamin D Total 25 OH 33 21 - 100 ng/mL [facility] Vit D Interp Sufficient [facility] Blood 05/16/2023 4:41 AM EDT 05/16/2023 4:54 AM EDT Narrative Resulting Agency Comment Spec In Lab Kristopher Ayoub MD CHEMISTRY ORDERABLES [facility] [place] [address] * (ABNORMAL) Blood Gas Venous ([facility]) (05/16/2023 4:22 AM EDT) Pathologist [facility] pH, Venous 7.41 7.32 - 7.42 [facility] PCO2, Venous 32(L) 41 - 51 mmHg [facility] PO2, Venous 73(H) 25 - 40 mmHg [facility] Bicarbonate, Venous 19.6 mmol/L [facility] Base Excess, Venous -5.1 mmol/L [facility] Hgb Blood Gas 9.7(L) 11.7 - 15.5 g/dL [facility] Oxyhemoglobin, Venous 92.8 % [facility] Carboxyhemoglob in, Venous 0.1 % [facility] Comment: Nonsmokers: 0.5-1.5% COHB Smokers: Variable, but usually less than 10% Toxic: 20-30% COHB Lethal: Greater than 60% COHB Methemoglobin, Venous 0.3 <=1.5 % [facility] Na Whole Blood 130(L) 135 - 145 mmol/L [facility] K Whole Blood 3.7 3.5 - 5.0 mmol/L [facility] Comment: Please note: Patients with WBC >100,000 may have falsely elevated Potassium levels. Contact the Clinical Chemistry Laboratory if there are any questions. ICa Whole Blood 1.15 1.15 - 1.33 mmol/L [facility] Comment: Note: ??Total bilirubin higher than 20 mg/dL may lead to falsely low ionized calcium. CL Whole Blood 95(L) 98 - 107 mmol/L [facility] Gluc Whole Bld 82 65 - 199 mg/dL [facility] Comment:Diabetes: >=200 mg/d L plus symptoms Lactate WB 1.1 0.5 - 2.2 mmol/L [facility] Blood Gas Source Venous [facility] Blood Venous Draw / Unknown 05/16/2023 4:22 AM EDT 05/16/2023 4:31 AM EDT Narrative Resulting Agency Comment Spec In Lab Bonita TOBAR CHEMISTRY ORDERABLES [facility] [place] [address] * (ABNORMAL) Differential, Automated (05/16/2023 4:20 AM EDT) Neutrophil % 84.1 % [facility] Neutrophil Absolute 6.22(H) 1.70 - 6.10 x10(3)/mc L [facility] Lymph % 5.8 % [facility] Lymphocytes Abs 0.4(L) 0.9 - 3.2 x10(3)/mc L [facility] Monocyte % 8.8 % [facility] Monocyte Abs 0.6 0.3 - 0.9 x10(3)/mc L [facility] Eos % 0.4 % [facility] Eosinophils Abs 0.0 0.0 - 0.4 x10(3)/mc L [facility] Basophil % 0.0 % [facility] Baso Absolute 0.0 0.0 - 0.1 x10(3)/mc L [facility] Immature Gran % 0.90 % [facility] Comment: Immature granulocytes(IG's)percentage and absolute count will include metamyelocytes, myelocytes, and promyelocytes. Blood smears from CBCs yielding IG's will be scanned manually for concordance. If this scan disagrees with the automated IG or if promyelocytes are noted, a manual differential will be performed. Immature Gran Absolute 0.07(H) 0.00 - 0.04 x10(3)/mc L [facility] Blood 05/16/2023 4:20 AM EDT 05/16/2023 4:29 AM EDT Narrative Resulting Agency Comment Spec In Lab James Agustin MD HEMATOLOGY ORDER JODIE [facility] [place] [address] * (ABNORMAL) Hemogram (05/16/2023 4:20 AM EDT) White Blood Cell 7.4 4.0 - 9.5 x10(3)/mc L [facility] Red Blood Cell 2.40(L) 4.00 - 5.21 x10(6)/mc L [facility] Hemoglobin 7.8(L) 11.7 - 15.5 g/dL [facility] Hematocrit 22.5(L) 35.7 - 45.8 % [facility] Mean Cell Volume 93.8 82.6 - 94.4 fL [facility] Mean Cell Hemoglobin 32.5(H) 27.1 - 32.0 pg [facility] Mean Cell Hemoglobin Concentration 34.7 31.7 - 35.0 g/dL [facility] Platelet 120(L) 145 - 357 x10(3)/mc L [facility] RDW Standard Deviation 42.9 37.0 - 46.0 fL [facility] RDW coefficient of variation 12.9 11.5 - 14.1 % [facility] Mean Platelet Volume 11.3 7.6 - 12.9 fL [facility] NRBC% auto 0.7 % [facility] NRBC Absolute 0.050(H) 0.000 - 0.000 x10(3)/mc L [facility] Blood 05/16/2023 4:20 AM EDT 05/16/2023 4:29 AM EDT Narrative Resulting Agency Comment Spec In Lab James Agustin MD HEMATOLOGY ORDER JODIE [facility] [place] [address] * (ABNORMAL) Basic Metabolic Panel (non-fasting) (05/16/2023 4:20 AM EDT) Glucose 89 65 - 199 mg/dL [facility] Comment:Diabetes: >=200 mg/d L plus symptoms Blood Urea Nitrogen 108(H) 8 - 18 mg/dL [facility] Creatinine 4.74(H) 0.70 - 1.20 mg/dL [facility] Comment:result rechecked-[facility] Sodium 132(L) 135 - 145 mmol/L [facility] Potassium 3.9 3.5 - 5.0 mmol/L [facility] Comment: Please note: ??Patients with WBC >100,000 may have falsely elevated Potassium levels. ??For accurate Potassium quantification in these patients send serum separator tube (gold top) for subsequent determinations. ??Contact the Clinical Chemistry Laboratory if there are any questions. Chloride 95(L) 98 - 107 mmol/L [facility] Carbon Dioxide 18(L) 22 - 31 mmol/L [facility] Anion Gap 19(H) 5 - 15 mmol/L [facility] Calcium 9.2 8.5 - 10.5 mg/dL [facility] Est Glomerular Filtration Rate 10(L) >=60 mL/min/1. 73 m?? [facility] Comment: This patient's estimated GFR [...] Lab Alirio Hudson MD CHEMISTRY ORDERABLE S [facility] [place] [address] * (ABNORMAL) Iron and TIBC (05/16/2023 4:20 AM EDT) Iron 31 30 - 150 mcg/dL [facility] TIBC 259 250 - 450 mcg/dL [facility] Iron Saturation 12(L) 20 - 50 % [facility] Blood 05/16/2023 4:20 AM EDT 05/16/2023 4:29 AM EDT Narrative Resulting Agency Comment Spec In Lab Kristopher Ayoub MD CHEMISTRY ORDERABLES [facility] [place] [address] * (ABNORMAL) Basic Metabolic Panel (non-fasting) (05/15/2023 12:50 AM EDT) Glucose 101 65 - 199 mg/dL [facility] Comment:Diabetes: >=200 mg/d L plus symptoms Blood Urea Nitrogen 109(H) 8 - 18 mg/dL [facility] Creatinine 5.62(H) 0.70 - 1.20 mg/dL [facility] Comment:result rechecked-[place] Sodium 131(L) 135 - 145 mmol/L [facility] Comment:result rechecked-[place] Potassium 3.7 3.5 - 5.0 mmol/L [facility] Comment: result rechecked-[place] Please note: ??Patients with WBC >100,000 may have falsely elevated Potassium levels. ??For accurate Potassium quantification in these patients send serum separator tube (gold top) for subsequent determinations. ??Contact the Clinical Chemistry Laboratory if there are any questions. Chloride 92(L) 98 - 107 mmol/L [facility] Comment:result rechecked-[place] Carbon Dioxide 18(L) 22 - 31 mmol/L [facility] Comment:result rechecked-[place] Anion Gap 21(H) 5 - 15 mmol/L [facility] Calcium 8.9 8.5 - 10.5 mg/dL [facility] Est Glomerular Filtration Rate 8(L) >=60 mL/min/1. 73 m?? [facility] Comment: This patient's estimated GFR [...] Lab Alirio Hudson MD CHEMISTRY ORDERABLE S [facility] [place] [address] * (ABNORMAL) Hemogram (05/15/2023 12:50 AM EDT) White Blood Cell 9.1 4.0 - 9.5 x10(3)/mc L [facility] Red Blood Cell 2.19(L) 4.00 - 5.21 x10(6)/mc L [facility] Hemoglobin 7.2(L) 11.7 - 15.5 g/dL [facility] Hematocrit 20.6(L) 35.7 - 45.8 % [facility] Mean Cell Volume 94.1 82.6 - 94.4 fL [facility] Mean Cell Hemoglobin 32.9(H) 27.1 - 32.0 pg [facility] Mean Cell Hemoglobin Concentration 35.0 31.7 - 35.0 g/dL [facility] Platelet 109(L) 145 - 357 x10(3)/mc L [facility] RDW Standard Deviation 43.6 37.0 - 46.0 fL [facility] RDW coefficient of variation 12.9 11.5 - 14.1 % [facility] Mean Platelet Volume 10.4 7.6 - 12.9 fL [facility] NRBC% auto 2.1 % [facility] NRBC Absolute 0.190(H) 0.000 - 0.000 x10(3)/ L [facility] Blood 05/15/2023 12:5 0 AM EDT 05/15/2023 12:52 AM EDT Narrative Resulting Agency Comment Spec In Lab Alirio Hudson MD HEMATOLOGY ORDERABL ES Performing Organization Address City/State/[facility] Co de Phone Number [facility] [place] [address] * (ABNORMAL) BLOOD GAS 2 VENOUS (05/15/2023 12:49 AM EDT) pH, Venous 7.33 7.32 - 7.42 [facility] PCO2, Venous 37(L) 41 - 51 mmHg [facility] PO2, Venous 34 25 - 40 mmHg [facility] Bicarbonate, Venous 19.1 mmol/L [facility] Base Excess, Venous -6.8 mmol/L [facility] Hgb Blood Gas 10.8(L) 11.7 - 15.5 g/dL [facility] Oxyhemoglobin, Venous 58.1 % [facility] Carboxyhemoglob in, Venous 0.3 % [facility] Comment: Nonsmokers: 0.5-1.5% COHB Smokers: Variable, but usually less than 10% Toxic: 20-30% COHB Lethal: Greater than 60% COHB Methemoglobin, Venous 0.6 <=1.5 % [facility] Na Whole Blood 136 135 - 145 mmol/L [facility] K Whole Blood 3.7 3.5 - 5.0 mmol/L [facility] Comment: Please note: Patients with WBC >100,000 may have falsely elevated Potassium levels. Contact the Clinical Chemistry Laboratory if there are any questions. ICa Whole Blood 1.12(L) 1.15 - 1.33 mmol/L [facility] Comment: Note: ??Total bilirubin higher than 20 mg/dL may lead to falsely low ionized calcium. CL Whole Blood 95(L) 98 - 107 mmol/L [facility] Gluc Whole Bld 101 65 - 199 mg/dL [facility] Comment:Diabetes: >=200 mg/d L plus symptoms Lactate WB 1.3 0.5 - 2.2 mmol/L [facility] Flow, Mike 1.0 LPM [facility] Blood Gas Source Venous [facility] Blood 05/15/2023 12:4 9 AM EDT 05/15/2023 12:49 AM EDT Alirio Hudson MD POINT OF CARE TEST ORDERABLES Performing Organization Address City/State/[facility] Co de Phone Number [facility] [place] [address] * US Retroperitoneal Complete (05/14/2023 3:53 PM [...] who have questions, please contact the health managed care analyst that requested your imaging first. ? Hayden Robledo, Staff Physician Electronically Signed Final Report ?? 05/14/2023 04:39 pm Narrative 05/14/2023 4:39 PM EDT Renal ? (Signed Final 05/14/2023 04:39 pm) PATIENT INFO: ID #: ? [id number] ?: ??55 (67 yrs)(F) Name: ? PURNIMA THACKER ?Visit Date: 05/14/2023 03:44 pm PERFORMED BY: Attending: ?Meena CULP, Hayden Stafford Resident: ? Nell CULP, Anand August Performed By: ? Consuelo Tello RDMS Referred By: ?ALIRIO HUDSON Location: ? [place] SERVICE(S) PROVIDED: URETRO - Retroperitoneal Complete - [id number] ? [id number] INDICATIONS: EVANS COMPARISON: CT: Abdomen/Pelvis 05/11/23 RIGHT [...] 05/14/2023 04:39 pm) PATIENT INFO: ID #: [id number] : 55 (67 yrs)(F) Name: PURNIMA THACKER Visit Date: 05/14/2023 03:44 pm PERFORMED BY: Attending: Hayden Robledo MD Resident: Anand Camejo MD Performed By: Consuelo Tello RDMS Referred By: ALIRIO HUDSON Location: [place] SERVICE(S) PROVIDED: URETRO - Retroperitoneal Complete - [id number] INDICATIONS: EVANS COMPARISON: CT: Abdomen/Pelvis 05/11/23 RIGHT [...] who have questions, please contact the health managed care analyst that requested your imaging first. Hayden Robledo, Staff Physician Electronically Signed Final Report 05/14/2023 04:39 pm Alirio Hudson MD IMG US GEN ORDERABL ES * CK (05/14/2023 3:17 PM EDT) Creatine Kinase 123 0 - 160 unit/L [facility] Blood 05/14/2023 3:17 PM EDT 05/14/2023 3:31 PM EDT Narrative Resulting Agency Comment Spec In Lab Alirio Hudson MD CHEMISTRY ORDERABLE S Performing Organization Address [facility] Co de Phone Number [facility] [place] [address] * (ABNORMAL) Uric acid (05/14/2023 3:17 PM EDT) Uric Acid 14.9(H) 2.5 - 6.5 mg/dL [facility] Blood 05/14/2023 3:17 PM EDT 05/14/2023 3:31 PM EDT Narrative Resulting Agency Comment Spec In Lab Alirio Hudson MD CHEMISTRY ORDERABLE S Performing Organization Address [facility] Co de Phone Number [facility] [place] [address] * (ABNORMAL) Osmolality (05/14/2023 3:17 PM EDT) Osmolality 311(H) 275 - 295 mOsm/kg [facility] Blood 05/14/2023 3:17 PM EDT 05/14/2023 3:31 PM EDT Narrative Resulting Agency Comment Spec In Lab Alirio Hudson MD [place] [address] * (ABNORMAL) Differential, Automated (05/14/2023 1:10 AM EDT) Neutrophil % 87.2 % [facility] Neutrophil Absolute 9.74(H) 1.70 - 6.10 x10(3)/mc L [facility] Lymph % 3.9 % [facility] Lymphocytes Abs 0.4(L) 0.9 - 3.2 x10(3)/mc L [facility] Monocyte % 7.9 % [facility] Monocyte Abs 0.9 0.3 - 0.9 x10(3)/mc L [facility] Eos % 0.0 % [facility] Eosinophils Abs 0.0 0.0 - 0.4 x10(3)/mc L [facility] Basophil % 0.1 % [facility] Baso Absolute 0.0 0.0 - 0.1 x10(3)/mc L [facility] Immature Gran % 0.90 % [facility] Comment: Immature granulocytes(IG's)percentage and absolute count will include metamyelocytes, myelocytes, and promyelocytes. Blood smears from CBCs yielding IG's will be scanned manually for concordance. If this scan disagrees with the automated IG or if promyelocytes are noted, a manual differential will be performed. Immature Gran Absolute 0.10(H) 0.00 - 0.04 x10(3)/ L [facility] Blood 05/14/2023 1:10 AM EDT 05/14/2023 1:24 AM EDT Narrative Resulting Agency Comment Spec In Lab Bonita TOBAR HEMATOLOGY ORDERABLE S Performing Organization Address City/[facility]/ZIP Co de Phone Number [facility] [place] [address] * (ABNORMAL) Hemogram (05/14/2023 1:10 AM EDT) White Blood Cell 11.2(H) 4.0 - 9.5 x10(3)/mc L [facility] Red Blood Cell 2.19(L) 4.00 - 5.21 x10(6)/mc L [facility] Hemoglobin 7.2(L) 11.7 - 15.5 g/dL [facility] Hematocrit 20.3(L) 35.7 - 45.8 % [facility] Mean Cell Volume 92.7 82.6 - 94.4 fL [facility] Mean Cell Hemoglobin 32.9(H) 27.1 - 32.0 pg [facility] Mean Cell Hemoglobin Concentration 35.5(H) 31.7 - 35.0 g/dL [facility] Platelet 112(L) 145 - 357 x10(3)/mc L [facility] RDW Standard Deviation 41.4 37.0 - 46.0 fL [facility] RDW coefficient of variation 12.5 11.5 - 14.1 % [facility] Mean Platelet Volume 10.4 7.6 - 12.9 fL [facility] NRBC% auto 1.5 % [facility] NRBC Absolute 0.170(H) 0.000 - 0.000 x10(3)/ L [facility] Blood 05/14/2023 1:10 AM EDT 05/14/2023 1:24 AM EDT Narrative Resulting Agency Comment Spec In Lab Bonita TOBAR HEMATOLOGY ORDERABLE S [facility] [place] [address] * (ABNORMAL) Comprehensive metabolic panel (non-fasting) (05/14/2023 1:10 AM EDT) Glucose 120 65 - 199 mg/dL [facility] Comment:Diabetes: >=200 mg/d L plus symptoms Blood Urea Nitrogen 98(H) 8 - 18 mg/dL [facility] Creatinine 4.80(H) 0.70 - 1.20 mg/dL [facility] Comment:result rechecked-ssc Sodium 132(L) 135 - 145 mmol/L [facility] Potassium 4.1 3.5 - 5.0 mmol/L [facility] Comment: Please note: ??Patients with WBC >100,000 may have falsely elevated Potassium levels. ??For accurate Potassium quantification in these patients send serum separator tube (gold top) for subsequent determinations. ??Contact the Clinical Chemistry Laboratory if there are any questions. Chloride 94(L) 98 - 107 mmol/L [facility] Carbon Dioxide 18(L) 22 - 31 mmol/L [facility] Anion Gap 20(H) 5 - 15 mmol/L [facility] Calcium 8.5 8.5 - 10.5 mg/dL [facility] Protein, Total 5.8(L) 6.1 - 8.0 g/dL [facility] Albumin 3.6 3.2 - 5.2 g/dL [facility] Aspartate Aminotransferase 319(H) 0 - 30 unit/L [facility] Alanine Aminotransferase 437(H) 0 - 30 unit/L [facility] Alkaline Phosphatase 86 35 - 105 unit/L [facility] Bilirubin, Total 0.4 0.2 - 1.3 mg/dL [facility] Est Glomerular Filtration Rate 9(L) >=60 mL/min/1. 73 m?? [facility] Comment: This patient's estimated GFR [...] Lab Alirio Hudson MD CHEMISTRY ORDERABLE S [facility] [place] [address] * APTT (05/13/2023 10:15 AM EDT) Partial Thromboplastin Time 27 25 - 37 sec [facility] Comment: The PTT is NOT [...] Organization Address [facility] de Phone Number [facility] [place] [address] * (ABNORMAL) Prothrombin Time (05/13/2023 10:15 AM EDT) Prothrombin Time 14.6(H) 9.4 - 12.5 sec [facility] International Normalization Ratio 1.3 [facility] Comment: An INR <2.0 indicates [...] MD HEMATOLOGY ORDERABL ES Performing Organization Address [facility] de Phone Number [facility] [place] [address] * EKG 12 Lead (05/13/2023 9:22 AM EDT) Ventricular rate 92 BPM MUSE SYSTEM Atrial Rate 92 BPM MUSE SYSTEM P-R Interval 140 ms MUSE SYSTEM QRS Duration 104 ms MUSE SYSTEM Q-T Interval 384 ms MUSE SYSTEM QTC Calculated (Bezet) 474 ms MUSE SYSTEM Calculated P [place] 33 degrees MUSE SYSTEM Calculated R [place] 41 degrees MUSE SYSTEM Calculated T [place] -35 degrees MUSE SYSTEM INTERPRETATION Sinus rhythm with frequent Premature ventricular complexes Septal infarct , age undetermined ST & T wave abnormality, consider lateral ischemia Abnormal ECG When compared with ECG of 12-MAY-2023 10:10, Premature ventricular complexes are now Present I personally reviewed the tracing and edited the fellows interpretation Confirmed by fellow MD Antiha, Carissa ([id number]) on 05/13/2023 3:25:30 PM Confirmed by Maxx Best ([id number]) on 05/13/2023 8:30:56 PM MUSE SYSTEM 05/13/2023 9:22 AM EDT 05/13/2023 8:30 PM EDT Alirio Hudson MD ECG ORDERABLES MUSE SYSTEM * (ABNORMAL) Differential, Automated (05/13/2023 1:15 AM EDT) Neutrophil % 88.1 % [facility] Neutrophil Absolute 7.62(H) 1.70 - 6.10 x10(3)/mc L [facility] Lymph % 3.1 % [facility] Lymphocytes Abs 0.3(L) 0.9 - 3.2 x10(3)/mc L [facility] Monocyte % 7.9 % [facility] Monocyte Abs 0.7 0.3 - 0.9 x10(3)/mc L [facility] Eos % 0.0 % [facility] Eosinophils Abs 0.0 0.0 - 0.4 x10(3)/mc L [facility] Basophil % 0.1 % [facility] Baso Absolute 0.0 0.0 - 0.1 x10(3)/mc L [facility] Immature Gran % 0.80 % [facility] Comment: Immature granulocytes(IG's)percentage and absolute count will include metamyelocytes, myelocytes, and promyelocytes. Blood smears from CBCs yielding IG's will be scanned manually for concordance. If this scan disagrees with the automated IG or if promyelocytes are noted, a manual differential will be performed. Immature Gran Absolute 0.07(H) 0.00 - 0.04 x10(3)/mc L [facility] Blood 05/13/2023 1:15 AM EDT 05/13/2023 1:29 AM EDT Narrative Resulting Agency Comment Spec In Lab Lorri TOBAR HEMATOLOGY ORDERABLE S [facility] [place] [address] * (ABNORMAL) Hemogram (05/13/2023 1:15 AM EDT) White Blood Cell 8.6 4.0 - 9.5 x10(3)/mc L [facility] Red Blood Cell 2.37(L) 4.00 - 5.21 x10(6)/mc L [facility] Hemoglobin 7.8(L) 11.7 - 15.5 g/dL [facility] Hematocrit 22.2(L) 35.7 - 45.8 % [facility] Mean Cell Volume 93.7 82.6 - 94.4 fL [facility] Mean Cell Hemoglobin 32.9(H) 27.1 - 32.0 pg [facility] Mean Cell Hemoglobin Concentration 35.1(H) 31.7 - 35.0 g/dL [facility] Platelet 130(L) 145 - 357 x10(3)/mc L [facility] RDW Standard Deviation 41.7 37.0 - 46.0 fL [facility] RDW coefficient of variation 12.5 11.5 - 14.1 % [facility] Mean Platelet Volume 10.2 7.6 - 12.9 fL [facility] NRBC% auto 0.5 % [facility] NRBC Absolute 0.040(H) 0.000 - 0.000 x10(3)/ L [facility] Blood 05/13/2023 1:15 AM EDT 05/13/2023 1:29 AM EDT Narrative Resulting Agency Comment Spec In Lab Lorri TOBAR HEMATOLOGY ORDERABLE S [facility] [place] [address] * (ABNORMAL) Hepatic Function Panel (05/13/2023 1:15 AM EDT) Protein, Total 5.5(L) 6.1 - 8.0 g/dL [facility] Albumin 3.0(L) 3.2 - 5.2 g/dL [facility] Aspartate Aminotransferase 792(H) 0 - 30 unit/L [facility] Alanine Aminotransferase 903(H) 0 - 30 unit/L [facility] Alkaline Phosphatase 85 35 - 105 unit/L [facility] Bilirubin, Total 0.5 0.2 - 1.3 mg/dL [facility] Bilirubin, Direct 0.3 0.0 - 0.3 mg/dL [facility] Blood 05/13/2023 1:15 AM EDT 05/13/2023 1:29 AM EDT Narrative Resulting Agency Comment Spec In Lab Alirio Hudson MD CHEMISTRY ORDERABLE S [facility] [place] [address] * (ABNORMAL) Basic Metabolic Panel (non-fasting) (05/13/2023 1:15 AM EDT) Glucose 107 65 - 199 mg/dL [facility] Comment:Diabetes: >=200 mg/d L plus symptoms Blood Urea Nitrogen 82(H) 8 - 18 mg/dL [facility] Creatinine 3.15(H) 0.70 - 1.20 mg/dL [facility] Comment:result rechecked-NINAJ Sodium 132(L) 135 - 145 mmol/L [facility] Potassium 3.8 3.5 - 5.0 mmol/L [facility] Comment: Please note: ??Patients with WBC >100,000 may have falsely elevated Potassium levels. ??For accurate Potassium quantification in these patients send serum separator tube (gold top) for subsequent determinations. ??Contact the Clinical Chemistry Laboratory if there are any questions. Chloride 95(L) 98 - 107 mmol/L [facility] Carbon Dioxide 20(L) 22 - 31 mmol/L [facility] Anion Gap 17(H) 5 - 15 mmol/L [facility] Calcium 8.3(L) 8.5 - 10.5 mg/dL [facility] Est Glomerular Filtration Rate 16(L) >=60 mL/min/1. 73 m?? [facility] Comment: This patient's estimated GFR [...] Lab Alirio Hudson MD CHEMISTRY ORDERABLE S [facility] [place] [address] * (ABNORMAL) BLOOD GAS 2 ARTERIAL (05/12/2023 3:57 PM EDT) pH, Arterial 7.39 7.35 - 7.45 [facility] PCO2, Arterial 33(L) 35 - 45 mmHg [facility] PO2, Arterial 101 85 - 104 mmHg [facility] Bicarbonate, Arterial 19.5(L) 20.0 - 26.0 mmol/L [facility] Base Excess, Arterial -5.5(L) -3.0 - 3.0 mmol/L [facility] Hgb Blood Gas 9.8(L) 11.7 - 15.5 g/dL [facility] Oxyhemoglobin, Arterial 95.2 94.0 - 97.0 % [facility] Carboxyhemoglob in, Arterial 0.2 % [facility] Comment: Nonsmokers: 0.5-1.5% COHB Smokers: Variable, but usually less than 10% Toxic: 20-30% COHB Lethal: Greater than 60% COHB Methemoglobin, Arterial 0.8 <=1.5 % [facility] Na Whole Blood 129(L) 135 - 145 mmol/L [facility] K Whole Blood 3.8 3.5 - 5.0 mmol/L [facility] Comment: Please note: Patients with WBC >100,000 may have falsely elevated Potassium levels. Contact the Clinical Chemistry Laboratory if there are any questions. ICa Whole Blood 1.05(L) 1.15 - 1.33 mmol/L [facility] Comment: Note: ??Total bilirubin higher than 20 mg/dL may lead to falsely low ionized calcium. CL Whole Blood 96(L) 98 - 107 mmol/L [facility] Gluc Whole Bld 178 65 - 199 mg/dL [facility] Comment:Diabetes: >=200 mg/d L plus symptoms. Lactate WB 1.5 0.5 - 2.2 mmol/L [facility] FIO2 Art 40 % [facility] PF Ratio Art 252 [facility] Blood 05/12/2023 3:57 PM EDT 05/12/2023 3:57 PM EDT Alirio Hudson MD POINT OF CARE TEST ORDERABLES Performing Organization Address [facility] Co de Phone Number [facility] [place] [address] * (ABNORMAL) Coox2 (05/12/2023 2:25 PM EDT) pO2, Coox 37 mmHg [facility] Hgb Blood Gas 9.5(L) 11.7 - 15.5 g/dL [facility] Oxyhemoglobin, Coox 59.9 % [facility] Carboxyhemoglo bin, Coox 0.3 % [facility] Comment: Nonsmokers: 0.5-1.5% COHB Smokers: Variable, but usually less than 10% Toxic: 20-30% COHB Lethal: Greater than 60% COHB Methemoglobin, Coox 0.7 <=1.5 % [facility] Source Coox Mixed Venous [facility] Blood 05/12/2023 2:25 PM EDT 05/12/2023 2:25 PM EDT Alirio Hudson MD POINT OF CARE TEST ORDERABLES Performing Organization Address [facility] Co de Phone Number [facility] [place] [address] * (ABNORMAL) BLOOD GAS 2 ARTERIAL (05/12/2023 2:23 PM EDT) pH, Arterial 7.37 7.35 - 7.45 [facility] PCO2, Arterial 36 35 - 45 mmHg [facility] PO2, Arterial 102 85 - 104 mmHg [facility] Bicarbonate, Arterial 20.4 20.0 - 26.0 mmol/L [facility] Base Excess, Arterial -4.8(L) -3.0 - 3.0 mmol/L [facility] Hgb Blood Gas 12.7 11.7 - 15.5 g/dL [facility] Oxyhemoglobin, Arterial 95.4 94.0 - 97.0 % [facility] Carboxyhemoglob in, Arterial 0.3 % [facility] Comment: Nonsmokers: 0.5-1.5% COHB Smokers: Variable, but usually less than 10% Toxic: 20-30% COHB Lethal: Greater than 60% COHB Methemoglobin, Arterial 0.7 <=1.5 % [facility] Na Whole Blood 129(L) 135 - 145 mmol/L [facility] K Whole Blood 3.7 3.5 - 5.0 mmol/L [facility] Comment: Please note: Patients with WBC >100,000 may have falsely elevated Potassium levels. Contact the Clinical Chemistry Laboratory if there are any questions. ICa Whole Blood 1.05(L) 1.15 - 1.33 mmol/L [facility] Comment: Note: ??Total bilirubin higher than 20 mg/dL may lead to falsely low ionized calcium. CL Whole Blood 95(L) 98 - 107 mmol/L [facility] Gluc Whole Bld 168 65 - 199 mg/dL [facility] Comment:Diabetes: >=200 mg/d L plus symptoms. Lactate WB 1.8 0.5 - 2.2 mmol/L [facility] FIO2 Art 40 % [facility] PF Ratio Art 255 [facility] Blood 05/12/2023 2:23 PM EDT 05/12/2023 2:23 PM EDT Alirio Hudson MD POINT OF CARE TEST ORDERABLES [facility] [place] [address] * (ABNORMAL) Troponin (05/12/2023 2:05 PM EDT) Troponin-T, High Sensitivity 1,022(H) <=14 ng/L [facility] Comment: This patient's troponin T [...] can be found in the [facility] Test Catalog Troponin - [facility] Test Catalog Reference: Fourth Hudson Definition of Myocardial Infarction. Journal of the [employer] 2018;72:6256-3305 Blood 05/12/2023 2:05 PM EDT 05/12/2023 2:14 PM EDT Narrative Resulting Agency Comment Spec In Lab Alirio Hudson MD CHEMISTRY ORDERABLE S [facility] [place] [address] * (ABNORMAL) Hemoglobin (05/12/2023 2:05 PM EDT) Hemoglobin 8.5(L) 11.7 - 15.5 g/dL [facility] Blood 05/12/2023 2:05 PM EDT 05/12/2023 2:14 PM EDT Narrative Resulting Agency Comment Spec In Lab Alirio Hudson MD HEMATOLOGY ORDERABL ES Performing Organization Address [facility] Co de Phone Number [facility] [place] [address] * Potassium (05/12/2023 2:05 PM EDT) Potassium 3.9 3.5 - 5.0 mmol/L [facility] Comment: Please note: ??Patients with [...] MD CHEMISTRY ORDERABLE S Performing Organization Address [facility] Co de Phone Number [facility] [place] [address] * (ABNORMAL) BLOOD GAS 2 ARTERIAL (05/12/2023 11:05 AM EDT) pH, Arterial 7.34(L) 7.35 - 7.45 [facility] PCO2, Arterial 42 35 - 45 mmHg [facility] PO2, Arterial 73(L) 85 - 104 mmHg [facility] Bicarbonate, Arterial 22.1 20.0 - 26.0 mmol/L [facility] Base Excess, Arterial -3.6(L) -3.0 - 3.0 mmol/L [facility] Hgb Blood Gas 9.3(L) 11.7 - 15.5 g/dL [facility] Oxyhemoglobin, Arterial 89.3(L) 94.0 - 97.0 % [facility] Carboxyhemoglob in, Arterial 0.2 % [facility] Comment: Nonsmokers: 0.5-1.5% COHB Smokers: Variable, but usually less than 10% Toxic: 20-30% COHB Lethal: Greater than 60% COHB Methemoglobin, Arterial 0.9 <=1.5 % [facility] Na Whole Blood 131(L) 135 - 145 mmol/L [facility] K Whole Blood 3.8 3.5 - 5.0 mmol/L [facility] Comment: Please note: Patients with WBC >100,000 may have falsely elevated Potassium levels. Contact the Clinical Chemistry Laboratory if there are any questions. ICa Whole Blood 1.04(L) 1.15 - 1.33 mmol/L [facility] Comment: Note: ??Total bilirubin higher than 20 mg/dL may lead to falsely low ionized calcium. CL Whole Blood 96(L) 98 - 107 mmol/L [facility] Gluc Whole Bld 152 65 - 199 mg/dL [facility] Comment:Diabetes: >=200 mg/d L plus symptoms. Lactate WB 2.8(H) 0.5 - 2.2 mmol/L [facility] FIO2 Art 40 % [facility] PF Ratio Art 182 [facility] Blood 05/12/2023 11:0 5 AM EDT 05/12/2023 11:05 AM EDT Alirio Hudson MD POINT OF CARE TEST ORDERABLES Performing Organization Address City/State/[facility] Co de Phone Number [facility] [place] [address] * (ABNORMAL) BLOOD GAS 2 ARTERIAL (05/12/2023 10:14 AM EDT) pH, Arterial 7.18(Criti gabrielle) 7.35 - 7.45 [facility] Comment:Noted by electrical and instrumentation mechanic. PCO2, Arterial 45 35 - 45 mmHg [facility] PO2, Arterial 186(H) 85 - 104 mmHg [facility] Bicarbonate, Arterial 16.2(L) 20.0 - 26.0 mmol/L [facility] Base Excess, Arterial -12.2(L) -3.0 - 3.0 mmol/L [facility] Hgb Blood Gas 10.0(L) 11.7 - 15.5 g/dL [facility] Oxyhemoglobin, Arterial 97.0 94.0 - 97.0 % [facility] Carboxyhemoglob in, Arterial 0.2 % [facility] Comment: Nonsmokers: 0.5-1.5% COHB Smokers: Variable, but usually less than 10% Toxic: 20-30% COHB Lethal: Greater than 60% COHB Methemoglobin, Arterial 0.9 <=1.5 % [facility] Na Whole Blood 129(L) 135 - 145 mmol/L [facility] K Whole Blood 3.6 3.5 - 5.0 mmol/L [facility] Comment: Please note: Patients with WBC >100,000 may have falsely elevated Potassium levels. Contact the Clinical Chemistry Laboratory if there are any questions. ICa Whole Blood 1.10(L) 1.15 - 1.33 mmol/L [facility] Comment: Note: ??Total bilirubin higher than 20 mg/dL may lead to falsely low ionized calcium. CL Whole Blood 97(L) 98 - 107 mmol/L [facility] Gluc Whole Bld 161 65 - 199 mg/dL [facility] Comment:Diabetes: >=200 mg/d L plus symptoms. Lactate WB 3.3(H) 0.5 - 2.2 mmol/L [facility] FIO2 Art 100 % [facility] PF Ratio Art 186 [facility] Blood 05/12/2023 10:1 4 AM EDT 05/12/2023 10:14 AM EDT Alirio Hudson MD POINT OF CARE TEST ORDERABLES Performing Organization Address City/State/[facility] Co de Phone Number [facility] [place] [address] * EKG 12 Lead (05/12/2023 10:10 AM EDT) Ventricular rate 116 BPM MUSE SYSTEM Atrial Rate 116 BPM MUSE SYSTEM P-R Interval 158 ms MUSE SYSTEM QRS Duration 114 ms MUSE SYSTEM Q-T Interval 348 ms MUSE SYSTEM QTC Calculated (Bezet) 483 ms MUSE SYSTEM Calculated P [place] 37 degrees MUSE SYSTEM Calculated R [place] 31 degrees MUSE SYSTEM Calculated T [place] -138 degrees MUSE SYSTEM INTERPRETATION Sinus tachycardia with intermittent aberrant ventricular conduction Possible Left atrial enlargement Incomplete left bundle block Left ventricular hypertrophy with repolarization abnormality ( Sokolow-Orozco , [place] product ) ST & T wave abnormality in Inferolateral leads Abnormal ECG When compared with ECG of 10-MAY-2023 13:16, ST & T wave abnormality is more pronounced in inferolateral leads I personally reviewed the tracing and edited the fellows interpretation Confirmed by fellow MD Anuja, Jim ([id number]) on 05/12/2023 1:04:20 PM Confirmed by MD Mono, Eleni ([id number]) on 05/12/2023 9:28:34 PM MUSE SYSTEM 05/12/2023 [...] questions please contact the health managed care analyst that requested your imaging first. ? Electronically signed by: Chyna Johnson MD, [facility] ??([phone]), at 05/12/2023 10:08 AM Narrative 05/12/2023 10:08 AM EDT EXAMINATION: XR CHEST ONE VIEW CLINICAL HISTORY: Post TAVR TECHNIQUE: 1 view of the chest COMPARISON: Chest radiograph from earlier today FINDINGS: Interval placement of endotracheal tube with tip terminating 2 cm above the shira. Interval placement of enteric tube projecting along the expected course of the esophagus and outside the vnjsw-jp-xwis. Interval retraction of right IJ approach pulmonary [...] expected course ofthe esophagus and outside the rsdwi-vt-agdq. Interval retraction of right IJ approach pulmonary [...] have questions please contactthe health managed care analyst that requested your imaging first. Electronically signed by: Chyna Johnson MD, [facility]([phone]), at 05/12/2023 10:08 AM Alirio Hudson MD [...] 1955 ? Height: 154 cm ? Account: [id number] Age: 67 yrs ? Weight: 75 kg Gender: Female ?BSA: 1.7 m2 Ordering Physician: RADHA HOLLINS Referring Physician: RADHA HOLLINS Performed By: Dilma Bee RDCS Reason For Study: Guidance for TAVR procedure Exam Location: [facility]. Interpretation Summary PRE TAVR: There is [...] mL/m2. POST TAVR: Normal function of the rjslx-rs-czdcn prosthesis. See below for hemodynamic parameters. Slight improvement in left and right ventricular systolic function. LVEF now 20-25%. No pericardial effusion. See report for additional findings. Procedure Limited - 70530. Doppler - 50811. Color Doppler - 99523. Left Ventricle Left ventricle is of normal [...] Date: 307:33 AMBP: 96/63 mmHg Patient Location: [address] : 1955 Height: 154 cm Account: [id number] Age: 67 yrs Weight: 75 kg Gender: Female BSA: 1.7 m2 Ordering Physician: RADHA HOLLINS Referring Physician: RADHA HOLLINS Performed By: Dilma Bee RDCS Reason For Study: Guidance for TAVR procedure Exam Location: [facility]. Interpretation Summary PRE TAVR: There is [...] 28mL/m2. POST TAVR: Normal function of the lqqdx-ww-cuknf prosthesis. See belowfor hemodynamic parameters. Slight improvement in left and right ventricularsystolic function. LVEF now 20-25%. No pericardial effusion. See report for additional findings. Procedure Limited - 04713. Doppler - 77690. Color Doppler - 19973. Left Ventricle Left ventricle is of normal [...] Modality Other Narrative 05/12/2023 2:37 PM EDT ?[facility] ? Cardiac Catheterization/Intervention Report ? Patient Name: Kirstie, Purnima M. ? Procedure Date: 05/12/2023 ? A #: [id number] ? Primary Physician: Antelmo Sharma ? Case #: [id number] ? File Name: [id number] ? Catheterization Order Number: [id number] ? [facility] ? Final Report [place], [place] ? Patient Name: ? Purnima M. Kirstie ? ID#: ?[id number] ? : ?1955 ? Procedure Date: ? May 12, 2023 ? Case #: ? [id number] ? Room: ? 6 ? Case Physicians: ?Antelmo Sharma M.D. ?Start: ?08:03 ?Alirio Hudson M.D. ?Admission: ??05/08/2023 ?Lynda Mcgowan M.D. ? Discharge: ??05/22/2023 ?Fellow: ? Kristied Bhavna Tejeda. ? Referring Physician: ??Mario Alberto Chin M.D. ? Procedures: ?* Coronary Angiography ?* Left Heart Catheterization ?* Coronary Stent Insertion ?* Transcatheter Aortic Valve Replacement ?* Vascular Closure Device Deployment ?* Temporary Pacemaker Insertion In Amphibious Operations Officer ?* Endotracheal Intubation By Non-Cath Physician ?* [...] was designated as ASA Class IV. The [facility] clinical ?frailty scale is 4: Vulnerable. [...] ??A premounted 4.00 x 30 mm Nils Macomb (MINNA) was ? deployed with a maximum [...] calculated STS risk score was 30.1%. A etoio-mh-ekqzq ?procedure was performed on the pre-existing bioprosthetic stented ?prosthesis. The priority of the zabxb-yh-wuysa procedure was Elective. ?The procedure was performed [...] Lai 3 Ultra RESILIA 23 mm THV (s/g=[id number]) transcatheter ?valve was inserted using standard technique. [...] to nor was it given in the ?sawyer cork slabs. ?Recommended anti-platelet/anti-thrombotic regimen: ?Continue aspirin 81 mg [...] regimen. ? Comments: ?Successful right transfemoral TAVR Ydacs-ob-Arpgv with a 23 mm Lai 3 ?THV. [...] insertion-coronary, access site angiography, ?temporary pacemaker in sawyer cork slabs, intubation-non cath physician, vascular ?closure device, transthoracic echo ??and TAVR. Dr. Alirio Hudson M.D. ?performed the left heart catheterization, access site angiography, ?temporary pacemaker in sawyer cork slabs, vascular closure device, transthoracic ?echo , TAVR and CPR during cath. Dr. Lynda Mcgowan M.D. performed the ABG, ?anesthesia and intubation-non cath physician. ? Antelmo Sharma M.D. ? Electronically Signed by: Antelmo Sharma M.D. ? Report Finalized: 05/12/2023 ??14:31 ? Report Last Ammended: 07/01/2023 ??11:30 ? Procedure Note Antelmo Sharma MD - 07/01/2023 [facility] Cardiac Catheterization/Intervention Report Patient Name: Purnima Thacker Procedure Date: 05/12/2023 A #: [id number] Primary Physician: Antelmo Sharma Case #: [id number] File Name: [id number] Catheterization Order Number: [id number] [facility] FinalReport [place], [place] Patient Name: Purnima Thacker ID#:[id number] :1955 Procedure Date: May 12, 2023 Case #: [id number] Room: 6 Case Physicians: Antelmo Sharma M.D. Start: 08:03 Alirio Hudson M.D. Admission:05/08/2023 Lynda Mcgowan M.D. Discharge:05/22/2023 Fellow: Rebekah Tejeda M.D. Referring Physician: Mario Alberto Chin M.D. Procedures: * Coronary Angiography * Left Heart Catheterization * Coronary Stent Insertion * Transcatheter Aortic Valve Replacement * Vascular Closure Device Deployment * Temporary Pacemaker Insertion In Amphibious Operations Officer * Endotracheal Intubation By Non-Cath Physician * [...] A premounted 4.00 x 30 mm Nils Macomb (MINNA) was deployed with a maximum inflation [...] calculated STS risk score was 30.1%. A hdind-nz-sstpg procedure was performed on the pre-existing bioprosthetic stented prosthesis. The priority of the ynwib-oe-moljn procedure wasElective. The procedure was performed under Moderate sedation performed byLynda Mcgowan M.D. (see anesthesia report for additional details). Alirio Hudson M.D. participated in the case (see Cardiac Surgery reportfor additional details). The TAVR sheath was a 14 Fr Corona eSheath Introducer and theaccess site was femoral. Rapid ventricular pacing was performed. An Corona Lai 3 Ultra RESILIA 23 mm THV (s/t=[id number])transcatheter valve was inserted using standard technique. The [...] prior to nor was it given inthe sawyer cork slabs. Recommended anti-platelet/anti-thrombotic regimen: Continue aspirin 81 mg [...] this regimen. Comments: Successful right transfemoral TAVR Wydlz-ma-Xgssx with a 23 mmSapien 3 THV. We [...] insertion-coronary, access site angiography, temporary pacemaker in sawyer cork slabs, intubation-non cath physician,vascular closure device, transthoracic echo and TAVR. Dr. Alirio Hudson M.D. performed the left heart catheterization, access site angiography, temporary pacemaker in sawyer cork slabs, vascular closure device,transthoracic echo , TAVR and [...] pH, POC 7.20(Crit ical) 7.35 - 7.45 [facility] Comment:Critical value OK, C C Lab. pCO2, POC 42 35 - 45 mmHg [facility] pO2, POC 260(H) 85 - 104 mmHg [facility] Base Excess, POC -11.0(L) -3.0 - 3.0 mmol/L [facility] Bicarbonate, POC 16.7(L) 20.0 - 26.0 mmol/L [facility] Sodium, POC 129(L) 135 - 145 mmol/L [facility] POC Potassium 3.8 3.5 - 5.0 mmol/L [facility] Ionized Calcium, POC 1.12(L) 1.15 - 1.33 mmol/L [facility] POC Hematocrit 23.0(L) 34.0 - 45.0 % [facility] POC Calc Hgb 7.8(L) 11.2 - 15.7 g/dL [facility] Comment:The calculation of h emoglobin from hematocrit assumes a normal MCHC. POC Bgas Loc CC Lab [facility] Blood 05/12/2023 8:50 AM EDT 05/13/2023 12:00 PM EDT Alirio Hudson MD CHEMISTRY ORDERABLE S [facility] [place] [address] * (ABNORMAL) Point of Care Blood Gas Historical (05/12/2023 8:10 AM EDT) pH, POC 7.27(Crit ical) 7.35 - 7.45 [facility] Comment:Critical value OK, C C Lab. pCO2, POC 37 35 - 45 mmHg [facility] pO2, POC 29(Critic al) 85 - 104 mmHg [facility] Comment:Critical value OK, C C Lab. Base Excess, POC -10.0(L) -3.0 - 3.0 mmol/L [facility] Bicarbonate, POC 16.7(L) 20.0 - 26.0 mmol/L [facility] Sodium, POC 123(L) 135 - 145 mmol/L [facility] POC Potassium 4.0 3.5 - 5.0 mmol/L [facility] Ionized Calcium, POC 1.12(L) 1.15 - 1.33 mmol/L [facility] POC Hematocrit 27.0(L) 34.0 - 45.0 % [facility] POC Calc Hgb 9.2(L) 11.2 - 15.7 g/dL [facility] Comment:The calculation of h emoglobin from hematocrit assumes a normal MCHC. POC Bgas Loc CC Lab [facility] Blood 05/12/2023 8:10 AM EDT 05/13/2023 12:00 PM EDT Alirio Hudson MD CHEMISTRY ORDERABLE S Performing Organization Address City/[facility]/ZIP Co de Phone Number [facility] [place] [address] * (ABNORMAL) Lactate, whole blood, send to lab ([facility]) (05/12/2023 7:00 AM EDT) Lactate WB 2.4(H) 0.5 - 2.2 mmol/L [facility] Blood 05/12/2023 7:00 AM EDT 05/12/2023 7:09 AM EDT Narrative Resulting Agency Comment Spec In Lab Radha Hollins MD CHEMISTRY ORDERABL ES Performing Organization Address [facility] Co de Phone Number [facility] [place] [address] * (ABNORMAL) Comprehensive metabolic panel (non-fasting) (05/12/2023 6:00 AM EDT) Glucose 167 65 - 199 mg/dL [facility] Comment:Diabetes: >=200 mg/d L plus symptoms Blood Urea Nitrogen 67(H) 8 - 18 mg/dL [facility] Creatinine 2.01(H) 0.70 - 1.20 mg/dL [facility] Sodium 131(L) 135 - 145 mmol/L [facility] Potassium 4.3 3.5 - 5.0 mmol/L [facility] Comment: Please note: ??Patients with WBC >100,000 may have falsely elevated Potassium levels. ??For accurate Potassium quantification in these patients send serum separator tube (gold top) for subsequent determinations. ??Contact the Clinical Chemistry Laboratory if there are any questions. Chloride 97(L) 98 - 107 mmol/L [facility] Carbon Dioxide 14(L) 22 - 31 mmol/L [facility] Anion Gap 20(H) 5 - 15 mmol/L [facility] Calcium 8.6 8.5 - 10.5 mg/dL [facility] Protein, Total 6.3 6.1 - 8.0 g/dL [facility] Albumin 3.5 3.2 - 5.2 g/dL [facility] Aspartate Aminotransferase 1,435(H) 0 - 30 unit/L [facility] Alanine Aminotransferase 1,174(H) 0 - 30 unit/L [facility] Alkaline Phosphatase 100 35 - 105 unit/L [facility] Bilirubin, Total 0.9 0.2 - 1.3 mg/dL [facility] Est Glomerular Filtration Rate 27(L) >=60 mL/min/1. 73 m?? [facility] Comment: This patient's estimated GFR [...] Lab Radha Hollins MD CHEMISTRY ORDERABL ES [facility] [place] [address] * (ABNORMAL) Coox2 (05/12/2023 5:08 AM EDT) pO2, Coox 24 mmHg [facility] Hgb Blood Gas 10.4(L) 11.7 - 15.5 g/dL [facility] Oxyhemoglobin, Coox 30.7 % [facility] Carboxyhemoglo bin, Coox 0.3 % [facility] Comment: Nonsmokers: 0.5-1.5% COHB Smokers: Variable, but usually less than 10% Toxic: 20-30% COHB Lethal: Greater than 60% COHB Methemoglobin, Coox 0.8 <=1.5 % [facility] Source Coox Mixed Venous [facility] Blood 05/12/2023 5:08 AM EDT 05/12/2023 5:08 AM EDT Radha Hollins MD POINT OF CARE TEST ORDERABLES Performing Organization Address City/[facility] Co de Phone Number [facility] [place] [address] * (ABNORMAL) Coox2 (05/12/2023 3:21 AM EDT) pO2, Coox 25 mmHg [facility] Hgb Blood Gas 10.8(L) 11.7 - 15.5 g/dL [facility] Oxyhemoglobin, Coox 32.7 % [facility] Carboxyhemoglo bin, Coox 0.3 % [facility] Comment: Nonsmokers: 0.5-1.5% COHB Smokers: Variable, but usually less than 10% Toxic: 20-30% COHB Lethal: Greater than 60% COHB Methemoglobin, Coox 0.7 <=1.5 % [facility] Source Coox Mixed Venous [facility] Blood 05/12/2023 3:21 AM EDT 05/12/2023 3:21 AM EDT Radha Hollins MD POINT OF CARE TEST ORDERABLES Performing Organization Address [facility] Co de Phone Number [facility] [place] [address] * (ABNORMAL) BLOOD GAS 2 ARTERIAL (05/12/2023 3:18 AM EDT) pH, Arterial 7.34(L) 7.35 - 7.45 [facility] PCO2, Arterial 30(L) 35 - 45 mmHg [facility] PO2, Arterial 72(L) 85 - 104 mmHg [facility] Bicarbonate, Arterial 16.0(L) 20.0 - 26.0 mmol/L [facility] Base Excess, Arterial -9.8(L) -3.0 - 3.0 mmol/L [facility] Hgb Blood Gas 11.0(L) 11.7 - 15.5 g/dL [facility] Oxyhemoglobin, Arterial 89.8(L) 94.0 - 97.0 % [facility] Carboxyhemoglob in, Arterial 0.3 % [facility] Comment: Nonsmokers: 0.5-1.5% COHB Smokers: Variable, but usually less than 10% Toxic: 20-30% COHB Lethal: Greater than 60% COHB Methemoglobin, Arterial 0.7 <=1.5 % [facility] Na Whole Blood 131(L) 135 - 145 mmol/L [facility] K Whole Blood 4.2 3.5 - 5.0 mmol/L [facility] Comment: Please note: Patients with WBC >100,000 may have falsely elevated Potassium levels. Contact the Clinical Chemistry Laboratory if there are any questions. ICa Whole Blood 1.12(L) 1.15 - 1.33 mmol/L [facility] Comment: Note: ??Total bilirubin higher than 20 mg/dL may lead to falsely low ionized calcium. CL Whole Blood 100 98 - 107 mmol/L [facility] Gluc Whole Bld 160 65 - 199 mg/dL [facility] Comment:Diabetes: >=200 mg/d L plus symptoms. Lactate WB 2.7(H) 0.5 - 2.2 mmol/L [facility] Flow Art 5.0 LPM [facility] Blood 05/12/2023 3:18 AM EDT 05/12/2023 3:18 AM EDT Radha Hollins MD POINT OF CARE TEST ORDERABLES [facility] [place] [address] * (ABNORMAL) Coox2 (05/12/2023 1:14 AM EDT) pO2, Coox 28 mmHg [facility] Hgb Blood Gas 10.9(L) 11.7 - 15.5 g/dL [facility] Oxyhemoglobin, Coox 37.3 % [facility] Carboxyhemoglo bin, Coox 0.3 % [facility] Comment: Nonsmokers: 0.5-1.5% COHB Smokers: Variable, but usually less than 10% Toxic: 20-30% COHB Lethal: Greater than 60% COHB Methemoglobin, Coox 0.5 <=1.5 % [facility] Source Coox Mixed Venous [facility] Blood 05/12/2023 1:14 AM EDT 05/12/2023 1:14 AM EDT Radha Hollins MD POINT OF CARE TEST ORDERABLES [facility] [place] [address] * (ABNORMAL) BLOOD GAS 2 ARTERIAL (05/12/2023 1:06 AM EDT) pH, Arterial 7.34(L) 7.35 - 7.45 [facility] PCO2, Arterial 30(L) 35 - 45 mmHg [facility] PO2, Arterial 81(L) 85 - 104 mmHg [facility] Bicarbonate, Arterial 15.7(L) 20.0 - 26.0 mmol/L [facility] Base Excess, Arterial -10.1(L) -3.0 - 3.0 mmol/L [facility] Hgb Blood Gas 11.0(L) 11.7 - 15.5 g/dL [facility] Oxyhemoglobin, Arterial 92.3(L) 94.0 - 97.0 % [facility] Carboxyhemoglob in, Arterial 0.2 % [facility] Comment: Nonsmokers: 0.5-1.5% COHB Smokers: Variable, but usually less than 10% Toxic: 20-30% COHB Lethal: Greater than 60% COHB Methemoglobin, Arterial 0.6 <=1.5 % [facility] Na Whole Blood 131(L) 135 - 145 mmol/L [facility] K Whole Blood 4.2 3.5 - 5.0 mmol/L [facility] Comment: Please note: Patients with WBC >100,000 may have falsely elevated Potassium levels. Contact the Clinical Chemistry Laboratory if there are any questions. ICa Whole Blood 1.13(L) 1.15 - 1.33 mmol/L [facility] Comment: Note: ??Total bilirubin higher than 20 mg/dL may lead to falsely low ionized calcium. CL Whole Blood 99 98 - 107 mmol/L [facility] Gluc Whole Bld 132 65 - 199 mg/dL [facility] Comment:Diabetes: >=200 mg/d L plus symptoms. Lactate WB 2.7(H) 0.5 - 2.2 mmol/L [facility] Flow Art 5.0 LPM [facility] Blood 05/12/2023 1:06 AM EDT 05/12/2023 1:06 AM EDT Radha Hollins MD POINT OF CARE TEST ORDERABLES [facility] [place] [address] * (ABNORMAL) Differential, Automated (05/12/2023 1:05 AM EDT) Neutrophil % 83.3 % [facility] Neutrophil Absolute 7.49(H) 1.70 - 6.10 x10(3)/mc L [facility] Lymph % 7.1 % [facility] Lymphocytes Abs 0.6(L) 0.9 - 3.2 x10(3)/mc L [facility] Monocyte % 8.9 % [facility] Monocyte Abs 0.8 0.3 - 0.9 x10(3)/mc L [facility] Eos % 0.0 % [facility] Eosinophils Abs 0.0 0.0 - 0.4 x10(3)/mc L [facility] Basophil % 0.1 % [facility] Baso Absolute 0.0 0.0 - 0.1 x10(3)/mc L [facility] Immature Gran % 0.60 % [facility] Comment: Immature granulocytes(IG's)percentage and absolute count will include metamyelocytes, myelocytes, and promyelocytes. Blood smears from CBCs yielding IG's will be scanned manually for concordance. If this scan disagrees with the automated IG or if promyelocytes are noted, a manual differential will be performed. Immature Gran Absolute 0.05(H) 0.00 - 0.04 x10(3)/mc L [facility] Blood 05/12/2023 1:05 AM EDT 05/12/2023 1:15 AM EDT Narrative Resulting Agency Comment Spec In Lab Gianni Fletcher MD HEMATOLOGY ORDERABLE S [facility] [place] [address] * (ABNORMAL) Hemogram (05/12/2023 1:05 AM EDT) White Blood Cell 9.0 4.0 - 9.5 x10(3)/mc L [facility] Red Blood Cell 3.01(L) 4.00 - 5.21 x10(6)/mc L [facility] Hemoglobin 9.8(L) 11.7 - 15.5 g/dL [facility] Hematocrit 28.7(L) 35.7 - 45.8 % [facility] Mean Cell Volume 95.3(H) 82.6 - 94.4 fL [facility] Mean Cell Hemoglobin 32.6(H) 27.1 - 32.0 pg [facility] Mean Cell Hemoglobin Concentration 34.1 31.7 - 35.0 g/dL [facility] Platelet 186 145 - 357 x10(3)/mc L [facility] RDW Standard Deviation 43.7 37.0 - 46.0 fL [facility] RDW coefficient of variation 12.7 11.5 - 14.1 % [facility] Mean Platelet Volume 10.3 7.6 - 12.9 fL [facility] NRBC% auto 0.0 % [facility] NRBC Absolute 0.000 0.000 - 0.000 x10(3)/mc L [facility] Blood 05/12/2023 1:05 AM EDT 05/12/2023 1:15 AM EDT Narrative Resulting Agency Comment Spec In Lab Gianni Fletcher MD HEMATOLOGY ORDERABLE S [facility] [place] [address] * (ABNORMAL) Comprehensive metabolic panel (non-fasting) (05/12/2023 1:05 AM EDT) Glucose 141 65 - 199 mg/dL [facility] Comment:Diabetes: >=200 mg/d L plus symptoms Blood Urea Nitrogen 63(H) 8 - 18 mg/dL [facility] Creatinine 1.86(H) 0.70 - 1.20 mg/dL [facility] Sodium 131(L) 135 - 145 mmol/L [facility] Potassium 4.4 3.5 - 5.0 mmol/L [facility] Comment: Please note: ??Patients with WBC >100,000 may have falsely elevated Potassium levels. ??For accurate Potassium quantification in these patients send serum separator tube (gold top) for subsequent determinations. ??Contact the Clinical Chemistry Laboratory if there are any questions. Chloride 96(L) 98 - 107 mmol/L [facility] Carbon Dioxide 14(L) 22 - 31 mmol/L [facility] Anion Gap 21(H) 5 - 15 mmol/L [facility] Calcium 9.0 8.5 - 10.5 mg/dL [facility] Protein, Total 6.6 6.1 - 8.0 g/dL [facility] Albumin 3.9 3.2 - 5.2 g/dL [facility] Aspartate Aminotransferase 1,227(H) 0 - 30 unit/L [facility] Alanine Aminotransferase 1,097(H) 0 - 30 unit/L [facility] Alkaline Phosphatase 108(H) 35 - 105 unit/L [facility] Bilirubin, Total 1.0 0.2 - 1.3 mg/dL [facility] Est Glomerular Filtration Rate 29(L) >=60 mL/min/1. 73 m?? [facility] Comment: This patient's estimated GFR [...] Lab Radha Hollins MD CHEMISTRY ORDERABL ES [facility] [place] [address] * XR Chest One View (05/12/2023 1:00 [...] questions please contact the health managed care analyst that requested your imaging first. ? [...] have questions please contactthe health managed care analyst that requested your imaging first. Radha Hollins MD IMG DX ORDERABLES * (ABNORMAL) Coox2 (05/12/2023 12:30 AM EDT) pO2, Coox 22 mmHg [facility] Hgb Blood Gas 10.9(L) 11.7 - 15.5 g/dL [facility] Oxyhemoglobin, Coox 25.1 % [facility] Carboxyhemoglo bin, Coox 0.3 % [facility] Comment: Nonsmokers: 0.5-1.5% COHB Smokers: Variable, but usually less than 10% Toxic: 20-30% COHB Lethal: Greater than 60% COHB Methemoglobin, Coox 1.4 <=1.5 % [facility] Source Coox Mixed Venous [facility] Blood 05/12/2023 12:3 0 AM EDT 05/12/2023 12:30 AM EDT Radha Hollins MD POINT OF CARE TEST ORDERABLES [facility] [place] [address] * XR Chest One View (05/11/2023 11:45 [...] questions please contact the health managed care analyst that requested your imaging first. ? [...] have questions please contactthe health managed care analyst that requested your imaging first. Radha Hollins MD IMG DX ORDERABLES * (ABNORMAL) Lactate, whole blood, send to lab ([facility] [place] [place]) (05/11/2023 7:40 PM EDT) Lactate WB 4.8(Critic al) 0.5 - 2.2 mmol/L [facility] Comment:Called by: [facility], Read back by: Magdalena Baires, Date/Time:05/11/23 19:54. Blood 05/11/2023 7:40 PM EDT 05/11/2023 7:49 PM EDT Narrative Resulting Agency Comment Spec In Lab Radha Hollins MD CHEMISTRY ORDERABL ES Performing Organization Address [facility]/ZIP Co de Phone Number [facility] [place] [address] * Urine culture (05/11/2023 7:22 PM EDT) Pathologist [facility] Urine Culture 50,000-99,000 cfu/ml Normal mucosal herman Susceptibilit y testing not routinely performed for Coagulase Negative Staphylococcu s species and other Gram Positive organisms from urine. [facility] Clean Catch Urine 05/11/2023 7:22 PM EDT 05/11/2023 8:50 PM EDT Narrative Resulting Agency Comment Spec In Lab Brody Dale Eusebio OSBORN MICROBIOLOGY - GENE RAL ORDERABLES Performing Organization Address [facility] Co de Phone Number [facility] [place] [address] * (ABNORMAL) Urinalysis Microscopic Exam (05/11/2023 7:22 PM EDT) Pathologist [facility] RBC, Urine 2 0 - 4 /HPF [facility] WBC, Urine >100(H) 0 - 5 /HPF [facility] Bacteria, Urine Occasional (A) None /HPF [facility] Squamous Epithelial Cells Raw Data, Urine 5(H) <=4 /HPF [facility] Hyaline Casts, Urine 3(H) 0 - 2 /LPF [facility] Clean Catch Urine 05/11/2023 7:22 PM EDT 05/11/2023 7:31 PM EDT Narrative Resulting Agency Comment Spec In Lab Brody Elvia Eusebio LEMAN URINE ORDERABLES Performing Organization Address [facility]/ZIP Co de Phone Number [facility] [place] [address] * (ABNORMAL) Urinalysis with reflex Culture (05/11/2023 7:22 PM EDT) Glucose, Urine Dipstick Negative Negative mg/dL [facility] Protein, Urine Dipstick Trace(A) Negative mg/dL [facility] Bilirubin, Urine Dipstick Negative Negative mg/dL [facility] Comment: Clinical correlation required for positive Urine Bilirubin results as false positive may occur with some drugs and drug related products. If a false positive is suspected a serum total bilirubin should be considered if clinically indicated. Urobilinogen, Urine Dipstick Normal Normal mg/dL [facility] pH, Urn (dipstick) 5.0 5.0 - 8.0 [facility] Blood, Urine Dipstick Trace(A) Negative mg/dL [facility] Ketone, Urine Dipstick Negative Negative mg/dL [facility] Nitrite, Urine Dipstick Negative Negative [facility] Leukocytes, Urine Dipstick Moderate(A) Negative mcL [facility] Appearance, Urine Dipstick Cloudy(A) Clear [facility] Specific [place] Urine Automated >=1.030(A) 1.005 - 1.030 [facility] Color, Urine Dipstick Yellow Yellow [facility] Reflex to Culture Yes [facility] Clean Catch Urine 05/11/2023 7:22 PM EDT 05/11/2023 7:31 PM EDT Narrative Resulting Agency Comment Spec In Lab Brody Kaplan APRN URINE ORDERABLES Performing Organization Address [facility]/ZIP Co de Phone Number [facility] [place] [address] * (ABNORMAL) pro-Brain Natriuretic Peptide (05/11/2023 7:11 PM EDT) NT-proBNP >35,000(H) <=124 pg/mL [facility] Blood 05/11/2023 7:11 PM EDT 05/11/2023 7:26 PM EDT Narrative Resulting Agency Comment Spec In Lab Radha Hollins MD CHEMISTRY ORDERABL ES Performing Organization Address City/[facility]/ZIP Co de Phone Number [facility] [place] [address] * (ABNORMAL) Lactate, whole blood, send to lab ([facility]) (05/11/2023 2:47 PM EDT) Lactate WB 2.9(H) 0.5 - 2.2 mmol/L [facility] Blood 05/11/2023 2:47 PM EDT 05/11/2023 2:53 PM EDT Narrative Resulting Agency Comment Spec In Lab Juan Luis Gonzalez MD CHEMISTRY ORDERABLES [facility] [place] [address] * (ABNORMAL) CT Angiogram Abdomen & Pelvis [...] questions please contact the health managed care analyst that requested your imaging first. ? [...] questions please contact the health managed care analyst that requested your imaging first. ? Electronically signed by: Cullen Narayanan MD, [facility] ([phone]), at 05/11/2023 4:37 PM Narrative 05/11/2023 4:37 [...] 610 mm2 Circumference: 88 mm Calcification: Mild Cyakoqj-ez-mhzddbsv height: Left: 6.2 mm Right: 5.8 mm THORACIC AORTA Description: Normal course and caliber. ??Mild diffuse atherosclerotic changes. No acute aortopathy noted. Boat Cleaning Supervisor dimensions: Aortic root: 27.6 mm Max ascending aorta: 30.5 mm x 27.7 mm Suggested fluoroscopic angulation based on line extending through the nadirs of the three sinuses of Valsalva, set equidistant: ?? TONGAN ??9 degrees; cranial 7 degrees MITRAL: Mitral [...] 610 mm2 Circumference: 88 mm Calcification: Mild Kuxsbsu-my-ynmtpqjn height: Left: 6.2 mm Right: 5.8 mm THORACIC AORTA Description: Normal course and caliber. Mild diffuse atheroscleroticchanges. No acute aortopathy noted. Boat Cle[employer] Supervisor dimensions: Aortic root: 27.6 mm Max ascending aorta: 30.5 mm x 27.7 mm Suggested fluoroscopic angulation based on line extending through thenadirs of the three sinuses of Valsalva, set equidistant: TONGAN 9 degrees; cranial 7 degrees MITRAL: Mitral [...] have questions please contactthe health managed care analyst that requested your imaging first. Electronically signed by: Cullen Narayanan MD, [facility]([phone]), at 05/11/2023 4:37 PM Antelmo Sharma MD IMG CT ORDERABLES * (ABNORMAL) Lactate, whole blood, send to lab ([facility]) (05/11/2023 9:29 AM EDT) Lactate WB 3.1(H) 0.5 - 2.2 mmol/L [facility] Blood 05/11/2023 9:29 AM EDT 05/11/2023 9:38 AM EDT Narrative Resulting Agency Comment Spec In Lab Juan Luis Gonzalez MD CHEMISTRY ORDERABLES [facility] [place] [address] * (ABNORMAL) Differential, Automated (05/11/2023 4:42 AM EDT) Neutrophil % 78.1 % [facility] Neutrophil Absolute 5.46 1.70 - 6.10 x10(3)/mc L [facility] Lymph % 10.6 % [facility] Lymphocytes Abs 0.7(L) 0.9 - 3.2 x10(3)/mc L [facility] Monocyte % 9.6 % [facility] Monocyte Abs 0.7 0.3 - 0.9 x10(3)/mc L [facility] Eos % 0.0 % [facility] Eosinophils Abs 0.0 0.0 - 0.4 x10(3)/mc L [facility] Basophil % 0.4 % [facility] Baso Absolute 0.0 0.0 - 0.1 x10(3)/mc L [facility] Immature Gran % 1.30 % [facility] Comment: Immature granulocytes(IG's)percentage and absolute count will include metamyelocytes, myelocytes, and promyelocytes. Blood smears from CBCs yielding IG's will be scanned manually for concordance. If this scan disagrees with the automated IG or if promyelocytes are noted, a manual differential will be performed. Immature Gran Absolute 0.09(H) 0.00 - 0.04 x10(3)/mc L [facility] Blood 05/11/2023 4:42 AM EDT 05/11/2023 4:49 AM EDT Narrative Resulting Agency Comment Spec In Lab Klaudia Reid MD HEMATOLOGY OR DERABLES Performing Organization Address City/[facility] Co de Phone Number [facility] [place] [address] * (ABNORMAL) Hemogram (05/11/2023 4:42 AM EDT) White Blood Cell 7.0 4.0 - 9.5 x10(3)/mc L [facility] Red Blood Cell 3.44(L) 4.00 - 5.21 x10(6)/[facility] Hemoglobin 11.1(L) 11.7 - 15.5 g/dL [facility] Hematocrit 32.7(L) 35.7 - 45.8 % [facility] Mean Cell Volume 95.1(H) 82.6 - 94.4 fL [facility] Mean Cell Hemoglobin 32.3(H) 27.1 - 32.0 pg [facility] Mean Cell Hemoglobin Concentration 33.9 31.7 - 35.0 g/dL [facility] Platelet 165 145 - 357 x10(3)/mc L [facility] RDW Standard Deviation 43.1 37.0 - 46.0 fL [facility] RDW coefficient of variation 12.7 11.5 - 14.1 % [facility] Mean Platelet Volume 10.1 7.6 - 12.9 fL [facility] NRBC% auto 0.0 % [facility] NRBC Absolute 0.000 0.000 - 0.000 x10(3)/ L [facility] Blood 05/11/2023 4:42 AM EDT 05/11/2023 4:49 AM EDT Narrative Resulting Agency Comment Spec In Lab Klaudia Reid MD HEMATOLOGY OR DERABLES Performing Organization Address [facility] Co de Phone Number [facility] [place] [address] * Heparin (unfractionated) Level (05/11/2023 4:42 AM EDT) UF Heparin 0.46 IU/mL [facility] Comment: Heparin (anti-Xa) [...] ORDERAB LES Performing Organization Address [facility] Co de Phone Number [facility] [place] [address] * (ABNORMAL) Comprehensive metabolic panel (non-fasting) (05/11/2023 4:42 AM EDT) Glucose 143 65 - 199 mg/dL [facility] Comment:Diabetes: >=200 mg/d L plus symptoms Blood Urea Nitrogen 42(H) 8 - 18 mg/dL [facility] Creatinine 1.24(H) 0.70 - 1.20 mg/dL [facility] Sodium 134(L) 135 - 145 mmol/L [facility] Potassium 4.6 3.5 - 5.0 mmol/L [facility] Comment: Please note: ??Patients with WBC >100,000 may have falsely elevated Potassium levels. ??For accurate Potassium quantification in these patients send serum separator tube (gold top) for subsequent determinations. ??Contact the Clinical Chemistry Laboratory if there are any questions. Chloride 99 98 - 107 mmol/L [facility] Carbon Dioxide 14(L) 22 - 31 mmol/L [facility] Anion Gap 21(H) 5 - 15 mmol/L [facility] Calcium 9.6 8.5 - 10.5 mg/dL [facility] Protein, Total 7.2 6.1 - 8.0 g/dL [facility] Albumin 3.7 3.2 - 5.2 g/dL [facility] Aspartate Aminotransferase 144(H) 0 - 30 unit/L [facility] Comment:result rechecked-ssc Alanine Aminotransferase 130(H) 0 - 30 unit/L [facility] Comment:[place] Alkaline Phosphatase 72 35 - 105 unit/L [facility] Bilirubin, Total 0.8 0.2 - 1.3 mg/dL [facility] Est Glomerular Filtration Rate 48(L) >=60 mL/min/1. 73 m?? [facility] Comment: This patient's estimated GFR [...] Lab Radha Hollins MD CHEMISTRY ORDERABL ES [facility] [place] [address] * EKG 12 Lead (05/10/2023 1:16 PM EDT) Ventricular rate 118 BPM MUSE SYSTEM Atrial Rate 118 BPM MUSE SYSTEM P-R Interval 152 ms MUSE SYSTEM QRS Duration 104 ms MUSE SYSTEM Q-T Interval 316 ms MUSE SYSTEM QTC Calculated (Bezet) 442 ms MUSE SYSTEM Calculated P [place] 29 degrees MUSE SYSTEM Calculated R [place] 18 degrees MUSE SYSTEM Calculated T [place] -173 degrees MUSE SYSTEM INTERPRETATION Sinus tachycardia Minimal voltage criteria for LVH, may be normal variant ( [place] product ) Septal infarct , age undetermined ST & T wave abnormality, consider lateral ischemia Abnormal ECG When compared with ECG of 10-MAY-2023 07:59, Fusion complexes are no longer Present Premature ventricular complexes are no longer Present ST no longer depressed in Anterior leads Confirmed by MD Villareal Danette ([id number]) on 05/10/2023 8:47:46 PM MUSE SYSTEM 05/10/2023 1:16 PM EDT 05/10/2023 8:47 PM EDT Juan Luis Gonzalez MD ECG ORDERABLES MUSE SYSTEM * Lactate, whole blood, send to lab ([facility]) (05/10/2023 11:52 AM EDT) Lactate WB 1.8 0.5 - 2.2 mmol/L [facility] Blood 05/10/2023 11:5 2 AM EDT 05/10/2023 12:13 PM EDT Narrative Resulting Agency Comment Spec In Lab Juan Luis Gonzalez MD CHEMISTRY ORDERABLES [facility] [place] [address] * XR Chest One View (05/10/2023 11:16 [...] questions please contact the health managed care analyst that requested your imaging first. ? Electronically signed by: ALIX RUVALCABA MD, [facility] ([phone]), at 05/10/2023 1:25 PM Narrative 05/10/2023 1:25 [...] have questions please contactthe health managed care analyst that requested your imaging first. Electronically signed by: ALIX RUVALCABA MD, [facility]([phone]), at 05/10/2023 1:25 PM Juan Luis Gonzalez MD IMG DX ORDERABLES * EKG 12 Lead (05/10/2023 7:59 AM EDT) [facility] Ventricular rate 115 BPM MUSE SYSTEM Atrial Rate 115 BPM MUSE SYSTEM P-R Interval 142 ms MUSE SYSTEM QRS Duration 102 ms MUSE SYSTEM Q-T Interval 322 ms MUSE SYSTEM QTC Calculated (Bezet) 445 ms MUSE SYSTEM Calculated P [place] 36 degrees MUSE SYSTEM Calculated R [place] 28 degrees MUSE SYSTEM Calculated T [place] -119 degrees MUSE SYSTEM INTERPRETATION Sinus tachycardia [...] (ABNORMAL) Differential, Automated (05/10/2023 2:28 AM EDT) [facility] Neutrophil % 77.1 % [facility] Neutrophil Absolute 4.01 1.70 - 6.10 x10(3)/mc L [facility] Lymph % 14.0 % [facility] Lymphocytes Abs 0.7(L) 0.9 - 3.2 x10(3)/mc L [facility] Monocyte % 7.7 % [facility] Monocyte Abs 0.4 0.3 - 0.9 x10(3)/mc L [facility] Eos % 0.4 % [facility] Eosinophils Abs 0.0 0.0 - 0.4 x10(3)/mc L [facility] Basophil % 0.4 % [facility] Baso Absolute 0.0 0.0 - 0.1 x10(3)/mc L [facility] Immature Gran % 0.40 % [facility] Comment: Immature granulocytes(IG's)percentage and absolute count will include metamyelocytes, myelocytes, and promyelocytes. Blood smears from CBCs yielding IG's will be scanned manually for concordance. If this scan disagrees with the automated IG or if promyelocytes are noted, a manual differential will be performed. Immature Gran Absolute 0.02 0.00 - 0.04 x10(3)/[facility] Blood 05/10/2023 2:28 AM EDT 05/10/2023 2:57 AM EDT Narrative Resulting Agency Comment Spec In Lab Klaudia Reid MD HEMATOLOGY OR DERABLES [facility] [place] [address] * (ABNORMAL) Hemogram (05/10/2023 2:28 AM EDT) White Blood Cell 5.2 4.0 - 9.5 x10(3)/[facility] Red Blood Cell 3.11(L) 4.00 - 5.21 x10(6)/[facility] Hemoglobin 10.2(L) 11.7 - 15.5 g/dL [facility] Hematocrit 30.2(L) 35.7 - 45.8 % [facility] Mean Cell Volume 97.1(H) 82.6 - 94.4 fL [facility] Mean Cell Hemoglobin 32.8(H) 27.1 - 32.0 pg [facility] Mean Cell Hemoglobin Concentration 33.8 31.7 - 35.0 g/dL [facility] Platelet 151 145 - 357 x10(3)/[facility] RDW Standard Deviation 44.9 37.0 - 46.0 fL [facility] RDW coefficient of variation 12.8 11.5 - 14.1 % [facility] Mean Platelet Volume 9.8 7.6 - 12.9 fL [facility] NRBC% auto 0.0 % [facility] NRBC Absolute 0.000 0.000 - 0.000 x10(3)/[facility] Blood 05/10/2023 2:28 AM EDT 05/10/2023 2:57 AM EDT Narrative Resulting Agency Comment Spec In Lab Klaudia Reid MD HEMATOLOGY OR DERABLES [facility] [place] [address] * (ABNORMAL) Comprehensive metabolic panel (non-fasting) (05/10/2023 2:28 AM EDT) Glucose 100 65 - 199 mg/dL [facility] Comment:Diabetes: >=200 mg/d L plus symptoms Blood Urea Nitrogen 30(H) 8 - 18 mg/dL [facility] Creatinine 0.90 0.70 - 1.20 mg/dL [facility] Sodium 134(L) 135 - 145 mmol/L [facility] Potassium 4.1 3.5 - 5.0 mmol/L [facility] Comment: Please note: ??Patients with WBC >100,000 may have falsely elevated Potassium levels. ??For accurate Potassium quantification in these patients send serum separator tube (gold top) for subsequent determinations. ??Contact the Clinical Chemistry Laboratory if there are any questions. Chloride 102 98 - 107 mmol/L [facility] Carbon Dioxide 20(L) 22 - 31 mmol/L [facility] Anion Gap 12 5 - 15 mmol/L [facility] Calcium 9.3 8.5 - 10.5 mg/dL [facility] Protein, Total 6.4 6.1 - 8.0 g/dL [facility] Albumin 3.7 3.2 - 5.2 g/dL [facility] Aspartate Aminotransferase 24 0 - 30 unit/L [facility] Alanine Aminotransferase 14 0 - 30 unit/L [facility] Alkaline Phosphatase 70 35 - 105 unit/L [facility] Bilirubin, Total 0.5 0.2 - 1.3 mg/dL [facility] Est Glomerular Filtration Rate 70 >=60 mL/min/1. 73 m?? [facility] Comment: This patient's estimated GFR [...] ES Performing Organization Address [facility] [place] [address] * Heparin (unfractionated) Level (05/10/2023 2:28 AM EDT) UF Heparin 0.37 IU/mL [facility] Comment: Heparin (anti-Xa) [...] ORDERAB LES Performing Organization Address [facility]/ZIP Co de Phone Number [facility] [place] [address] * (ABNORMAL) Differential, Automated (05/09/2023 4:00 AM EDT) Neutrophil % 81.7 % [facility] Neutrophil Absolute 5.26 1.70 - 6.10 x10(3)/mc L [facility] Lymph % 10.7 % [facility] Lymphocytes Abs 0.7(L) 0.9 - 3.2 x10(3)/[facility] Monocyte % 6.5 % [facility] Monocyte Abs 0.4 0.3 - 0.9 x10(3)/[facility] Eos % 0.5 % [facility] Eosinophils Abs 0.0 0.0 - 0.4 x10(3)/[facility] Basophil % 0.3 % [facility] Baso Absolute 0.0 0.0 - 0.1 x10(3)/[facility] Immature Gran % 0.30 % [facility] Comment: Immature granulocytes(IG's)percentage and absolute count will include metamyelocytes, myelocytes, and promyelocytes. Blood smears from CBCs yielding IG's will be scanned manually for concordance. If this scan disagrees with the automated IG or if promyelocytes are noted, a manual differential will be performed. Immature Gran Absolute 0.02 0.00 - 0.04 x10(3)/ L [facility] Blood 05/09/2023 4:00 AM EDT 05/09/2023 4:19 AM EDT Narrative Resulting Agency Comment Spec In Lab Klaudia Reid MD HEMATOLOGY OR DERABLES [facility] [place] [address] * (ABNORMAL) Hemogram (05/09/2023 4:00 AM EDT) White Blood Cell 6.4 4.0 - 9.5 x10(3)/[facility] Red Blood Cell 3.15(L) 4.00 - 5.21 x10(6)/[facility] Hemoglobin 10.2(L) 11.7 - 15.5 g/dL [facility] Hematocrit 30.3(L) 35.7 - 45.8 % [facility] Mean Cell Volume 96.2(H) 82.6 - 94.4 fL [facility] Mean Cell Hemoglobin 32.4(H) 27.1 - 32.0 pg [facility] Mean Cell Hemoglobin Concentration 33.7 31.7 - 35.0 g/dL [facility] Platelet 151 145 - 357 x10(3)/mc L [facility] RDW Standard Deviation 44.7 37.0 - 46.0 fL [facility] RDW coefficient of variation 12.8 11.5 - 14.1 % [facility] Mean Platelet Volume 9.4 7.6 - 12.9 fL [facility] NRBC% auto 0.0 % [facility] NRBC Absolute 0.000 0.000 - 0.000 x10(3)/mc L [facility] Blood 05/09/2023 4:00 AM EDT 05/09/2023 4:19 AM EDT Narrative Resulting Agency Comment Spec In Lab Klaudia Reid MD HEMATOLOGY OR DERABLES Performing Organization Address City/State/[facility] Co de Phone Number [facility] [place] [address] * Heparin (unfractionated) Level (05/09/2023 4:00 AM EDT) UF Heparin 0.47 IU/mL [facility] Comment: Heparin (anti-Xa) levels should be [...] Lab Radha Hollins MD HEMATOLOGY ORDERAB LES [facility] [place] [address] * (ABNORMAL) Comprehensive metabolic panel (non-fasting) (05/09/2023 4:00 AM EDT) Glucose 108 65 - 199 mg/dL [facility] Comment:Diabetes: >=200 mg/d L plus symptoms Blood Urea Nitrogen 31(H) 8 - 18 mg/dL [facility] Creatinine 1.03 0.70 - 1.20 mg/dL [facility] Sodium 137 135 - 145 mmol/L [facility] Potassium 4.4 3.5 - 5.0 mmol/L [facility] Comment: Please note: ??Patients with WBC >100,000 may have falsely elevated Potassium levels. ??For accurate Potassium quantification in these patients send serum separator tube (gold top) for subsequent determinations. ??Contact the Clinical Chemistry Laboratory if there are any questions. Chloride 102 98 - 107 mmol/L [facility] Carbon Dioxide 20(L) 22 - 31 mmol/L [facility] Anion Gap 15 5 - 15 mmol/L [facility] Calcium 9.3 8.5 - 10.5 mg/dL [facility] Protein, Total 6.6 6.1 - 8.0 g/dL [facility] Albumin 3.8 3.2 - 5.2 g/dL [facility] Aspartate Aminotransferase 32(H) 0 - 30 unit/L [facility] Alanine Aminotransferase 18 0 - 30 unit/L [facility] Alkaline Phosphatase 78 35 - 105 unit/L [facility] Bilirubin, Total 0.5 0.2 - 1.3 mg/dL [facility] Est Glomerular Filtration Rate 60 >=60 mL/min/1. 73 m?? [facility] Comment: This patient's estimated GFR [...] ES Performing Organization Address [facility] Co de Phone Number [facility] [place] [address] * (ABNORMAL) pro-Brain Natriuretic Peptide (05/08/2023 4:00 PM EDT) NT-proBNP 25,503(H) <=124 pg/mL [facility] Blood Venous Draw / Unknown 05/08/2023 4:00 PM EDT 05/08/2023 4:25 PM EDT Narrative Resulting Agency Comment Spec In Lab Juan Luis Gonzalez MD CHEMISTRY ORDERABLES Performing Organization Address [facility] Co de Phone Number [facility] [place] [address] * Magnesium (05/08/2023 4:00 PM EDT) Magnesium 0.82 0.69 - 1.07 mmol/L [facility] Blood 05/08/2023 4:00 PM EDT 05/08/2023 4:06 PM EDT Narrative Resulting Agency Comment Spec In Lab Enrique Chua MD CHEMISTRY ORDERABLES Performing Organization Address [facility] Co de Phone Number [facility] [place] [address] * Potassium (05/08/2023 4:00 PM EDT) Potassium 3.9 3.5 - 5.0 mmol/L [facility] Comment: Please note: ??Patients with [...] ES Performing Organization Address [facility] [facility] Co de Phone Number [facility] [place] [address] * Heparin (unfractionated) Level (05/08/2023 4:00 PM EDT) Pathologist [facility] UF Heparin 0.43 IU/mL [facility] Comment: Heparin (anti-Xa) [...] ORDERAB LES Performing Organization Address [facility] Co de Phone Number [facility] [place] [address] * EKG 12 Lead (05/08/2023 3:51 PM EDT) Ventricular rate 98 BPM MUSE SYSTEM Atrial Rate 98 BPM MUSE SYSTEM P-R Interval 150 ms MUSE SYSTEM QRS Duration 102 ms MUSE SYSTEM Q-T Interval 358 ms MUSE SYSTEM QTC Calculated (Bezet) 457 ms MUSE SYSTEM Calculated P [place] 38 degrees MUSE SYSTEM Calculated R [place] 48 degrees MUSE SYSTEM Calculated T [place] -112 degrees MUSE SYSTEM INTERPRETATION Sinus rhythm with frequent and consecutive Premature ventricular and fusion complexes Septal infarct , age undetermined ST & T wave abnormality, consider anterolateral ischemia Abnormal ECG When compared with ECG of 09-NOV-2022 11:17, T wave inversion now evident in Anterolateral leads Confirmed by MD Harshil, Enrique Bell ([id number]) on 05/10/2023 8:11:46 AM MUSE SYSTEM 05/08/2023 3:51 PM EDT 05/10/2023 8:11 AM EDT Radha Hollins MD ECG ORDERABLES MUSE SYSTEM * (ABNORMAL) Differential, Automated (05/08/2023 11:38 AM EDT) Neutrophil % 71.3 % [facility] Neutrophil Absolute 2.91 1.70 - 6.10 x10(3)/mc L [facility] Lymph % 19.1 % [facility] Lymphocytes Abs 0.8(L) 0.9 - 3.2 x10(3)/mc L [facility] Monocyte % 9.0 % [facility] Monocyte Abs 0.4 0.3 - 0.9 x10(3)/mc L [facility] Eos % 0.2 % [facility] Eosinophils Abs 0.0 0.0 - 0.4 x10(3)/mc L [facility] Basophil % 0.2 % [facility] Baso Absolute 0.0 0.0 - 0.1 x10(3)/mc L [facility] Immature Gran % 0.20 % [facility] Comment: Immature granulocytes(IG's)percentage and absolute count will include metamyelocytes, myelocytes, and promyelocytes. Blood smears from CBCs yielding IG's will be scanned manually for concordance. If this scan disagrees with the automated IG or if promyelocytes are noted, a manual differential will be performed. Immature Gran Absolute 0.01 0.00 - 0.04 x10(3)/mc L [facility] Blood 05/08/2023 11:3 8 AM EDT 05/08/2023 11:44 AM EDT Narrative Resulting Agency Comment Spec In Lab Lincoln Sal MD HEMATOLOGY ORDERA BLES [facility] [place] [address] * (ABNORMAL) Hemogram (05/08/2023 11:38 AM EDT) White Blood Cell 4.1 4.0 - 9.5 x10(3)/mc L [facility] Red Blood Cell 3.05(L) 4.00 - 5.21 x10(6)/mc L [facility] Hemoglobin 10.2(L) 11.7 - 15.5 g/dL [facility] Hematocrit 29.6(L) 35.7 - 45.8 % [facility] Mean Cell Volume 97.0(H) 82.6 - 94.4 fL [facility] Mean Cell Hemoglobin 33.4(H) 27.1 - 32.0 pg [facility] Mean Cell Hemoglobin Concentration 34.5 31.7 - 35.0 g/dL [facility] Platelet 136(L) 145 - 357 x10(3)/mc L [facility] RDW Standard Deviation 44.3 37.0 - 46.0 fL [facility] RDW coefficient of variation 12.6 11.5 - 14.1 % [facility] Mean Platelet Volume 9.4 7.6 - 12.9 fL [facility] NRBC% auto 0.0 % [facility] IT[facility] NRBC Absolute 0.000 0.000 - 0.000 x10(3)/mc L [facility] Blood 05/08/2023 11:3 8 AM EDT 05/08/2023 11:44 AM EDT Narrative Resulting Agency Comment Spec In Lab Lincoln Sal MD HEMATOLOGY ORDERA BLES [facility] [place] [address] * TSH (05/08/2023 11:38 AM EDT) Thyroid Stimulating Hormone 1.27 0.27 - 4.20 mcIU/mL [facility] Comment: Reference Interval (mcIU/mL): Females: ??First Trimester: 0.23-3.88 ??Second Trimester: 0.22-3.90 ??Third Trimester: 0.44-4.66 Blood 05/08/2023 11:3 8 AM EDT 05/08/2023 11:44 AM EDT Narrative Resulting Agency Comment Spec In Lab Enrique Chua MD CHEMISTRY ORDERABLES Performing Organization Address City/[facility] Co de Phone Number [facility] [place] [address] * (ABNORMAL) Phosphorus (05/08/2023 11:38 AM EDT) Phosphorus 4.7(H) 2.5 - 4.5 mg/dL [facility] Blood 05/08/2023 11:3 8 AM EDT 05/08/2023 11:44 AM EDT Narrative Resulting Agency Comment Spec In Lab Enrique Chua MD CHEMISTRY ORDERABLES Performing Organization Address [facility] Co de Phone Number [facility] [place] [address] * Magnesium (05/08/2023 11:38 AM EDT) Magnesium 0.76 0.69 - 1.07 mmol/L [facility] Blood 05/08/2023 11:3 8 AM EDT 05/08/2023 11:44 AM EDT Narrative Resulting Agency Comment Spec In Lab Enrique Chua MD CHEMISTRY ORDERABLES Performing Organization Address [facility] Co de Phone Number [facility] [place] [address] * (ABNORMAL) Basic Metabolic Panel (non-fasting) (05/08/2023 11:38 AM EDT) Glucose 97 65 - 199 mg/dL [facility] Comment:Diabetes: >=200 mg/d L plus symptoms Blood Urea Nitrogen 27(H) 8 - 18 mg/dL [facility] Creatinine 1.02 0.70 - 1.20 mg/dL [facility] Sodium 139 135 - 145 mmol/L [facility] Potassium 4.2 3.5 - 5.0 mmol/L [facility] Comment: Please note: ??Patients with WBC >100,000 may have falsely elevated Potassium levels. ??For accurate Potassium quantification in these patients send serum separator tube (gold top) for subsequent determinations. ??Contact the Clinical Chemistry Laboratory if there are any questions. Chloride 105 98 - 107 mmol/L [facility] Carbon Dioxide 20(L) 22 - 31 mmol/L [facility] Anion Gap 14 5 - 15 mmol/L [facility] Calcium 9.4 8.5 - 10.5 mg/dL [facility] Est Glomerular Filtration Rate 60 >=60 mL/min/1. 73 m?? [facility] Comment: This patient's estimated GFR [...] Chua MD CHEMISTRY ORDERABLES Performing Organization Address City/State/[facility] Co de Phone Number [facility] [place] [address] * ECHO COMPLETE (05/08/2023 11:02 AM EDT) EF 25 [employer]ART[employer] SYSTEM Anatomical Region Laterality Modality Cardiac Other 05/08/2023 10:0 3 AM EDT Narrative 05/08/2023 11:51 AM EDT ? Echocardiogram Report Name: PURNIMA THACKER ?Study Date: 05/08/2023 10:03 AMBP: 92/64 mmHg ? Patient Location: [facility]^CV29^A : 1955 ? Height: 155 cm ? Account: [id number] Age: 67 yrs ? Weight: 78 kg Gender: Female ?BSA: 1.8 m2 Ordering Physician: ENRIQUE CHUA Referring Physician: MARIO ALBERTO CHIN Performed By: CHUCKIE Canchola Reason For Study: SAVR Stenosis Exam Location: [facility]. Interpretation Summary -Left ventricle is severely [...] worsening stenosis. Mitral regurgitation is similar. Procedure Complete-[id number]. Satisfactory quality. There is normal sinus rhythm. [...] Study Date: 310:03 AMBP: 92/64 mmHg Patient Location:[facility]^CV29^A : 1955 Height: 155 cm Account: [id number] Age: 67 yrs Weight: 78 kg Gender: Female BSA: 1.8 m2 Ordering Physician: ENRIQUE CHUA Referring Physician: MARIO ALBERTO CHIN Performed By: CHUCKIE Canchola Reason For Study: SAVR Stenosis Exam Location: [facility]. Interpretation Summary -Left ventricle is severely [...] suggestsworsening stenosis. Mitral regurgitation is similar. Procedure Complete-[id number]. Satisfactory quality. There is normal sinus rhythm. 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 Mild coronary artery disease by [facility] 11/09/2022 Mixed connective tissue disease [...] Mild coronary artery disease by [facility] 11/09/2022 Stenosis of prosthetic aortic [...] 40 mEq, Oral, ONCE, 1 dose, On [facility] 05/20/23 at 0915, potassium chloride ER [...] post-op day 1 in the AM Give IN if unable to take PO, Routine Group [...] Routine documented in this encounter Care Teams Drawbridge Operator Relationship Specialty Start Date End Date Magdalena Acosta MD [address] [place] [address] PCP - General Family Medicine 02/05/23 documented as of this encounter
--- OUTSIDE RECORDS SUMMARY | 2024-04-04 14:17 | XMS_ITS | Encounter Summary ---
[place] [address] Care Team Providers Care Proposal Review Analyst Name Role Phone Magdalena Acosta MD Primary Care Provider [phone] Encounter Details Date Type Department Care Team [...] PM EDT Office Visit Dermatology at [address] [place] [address] Marek Bonilla MD [address] [facility] [address] documented as of this encounter Visit Diagnoses Not on filedocumented in this encounter Care Teams Proposal Review Analyst Relationship Specialty Start Date End Date Magdalena Acosta MD [address] [place] [address] PCP - General Family Medicine 02/05/23 documented as of this encounter
--- OUTSIDE RECORDS SUMMARY | 2024-04-04 14:17 | XMS_ITS | Encounter Summary ---
[place] [address] Care Team Providers Care Packaging Inspector Name Role Phone Magdalena Acosta MD Primary Care Provider [phone] Encounter Details Date Type Department Care Team [...] PM EDT Office Visit Dermatology at [address] [place] [address] Marek Bonilla MD [address] [facility], [place] [address] documented as of this encounter Visit Diagnoses Not on filedocumented in this encounter Care Teams Packaging Inspector Relationship Specialty Start Date End Date Magdalena Acosta MD [address] [place] [address] PCP - General Family Medicine 02/05/23 documented as of this encounter
--- OUTSIDE RECORDS SUMMARY | 2024-04-04 14:17 | XMS_ITS | Encounter Summary ---
[place] [address] Care Team Providers Care Catering Server Name Role Phone Magdalena Acosta MD [...] PM EDT Office Visit Dermatology at [address] [place] [address] Marek Bonilla MD [address] [facility], [place] [address] documented as of this encounter Visit Diagnoses Not on filedocumented in this encounter Care Teams Catering Server Relationship Specialty Start Date End Date Magdalena Acosta MD [address] [place] [address] PCP - General Family Medicine 02/05/23 documented as of this encounter
--- OUTSIDE RECORDS SUMMARY | 2024-04-04 14:17 | XMS_ITS | Encounter Summary ---
Author Organization Counts Include [address] [facility] [address] Care Team Providers Care Top Knitter Name Role Phone Magdalena Acosta MD Primary Care Provider [phone] Encounter Details Date Type Department Care Team (Latest Contact Info) Description 02/05/2023 9:33 PM EDT - 02/05/2023 11:59 PM EDT Hospital [place] [phone] Discharge Disposition: Home Social History Tobacco Use [...] EDT Office Visit Dermatology at [place] [address] [place] [address] Marek Bonilla MD [address] [facility], [place] [address] documented as of this encounter Procedures Procedure Name Priority Date/Time Associated Diagnosis Comments SURGICAL PATHOLOGY REPORT Routine 02/05/2023 3:00 PM EDT documented in this encounter Results * Surgical Pathology Report (02/05/2023 3:00 PM EDT) Final Diagnosis [id number] ? Location: [facility] The signing pathologist has (i) examined the relevant preparation(s) for the specimen(s) and (ii) rendered or confirmed the diagnosis(es). . ?Surgical Pathology DIAGNOSIS Left upper back, skin punch biopsy: - ??Compound dysplastic ??melanocytic nevus with moderate atypia, transected at peripheral specimen edges ?? (see discussion) Electronically signed by: ?Vanna CULP, Jesse Shields Verified: ??02/16/2023 8:04 ?? Dermatopathologist Performed at: ??[facility] Dept. of Pathology, [place] [address] Plant Maintenance Supervisor: Kunal Rubi MD, FCAP, ??CLIA Certificate: [id number] DISCUSSION If there is an obvious clinical [...] labeled A1. ??sns 02/16/2023 8:04 AM EDT [facility] SPECIMEN FROM SKIN / Unknown 02/05/2023 3:00 PM EDT 02/05/2023 3:00 PM EDT Marek Bonilla MD PATHOLOGY/CYTOLOGY O RDERABLES [facility] [place] [address] [facility] [place] [address] documented in this encounter Visit Diagnoses Not on filedocumented in this encounter Care Teams Top Knitter Relationship Specialty Start Date End Date Magdalena Acosta MD [address] [place] [address] PCP - General Family Medicine 02/05/23 documented as of this encounter
--- OUTSIDE RECORDS SUMMARY | 2024-04-04 14:17 | XMS_ITS | Encounter Summary ---
[place] [address] Care Team Providers Care Funeral Home Attendant Name Role Phone Magdalena Acosta MD Primary Care Provider [phone] Encounter Details Date Type Department Care Team [...] PM EDT Office Visit Dermatology at [address] [place] [address] Marek Bonilla MD [address] [facility], [place] [address] documented as of this encounter Visit Diagnoses Not on filedocumented in this encounter Care Teams Funeral Home Attendant Relationship Specialty Start Date End Date Magdalena Acosta MD [address] [place] [address] PCP - General Family Medicine 02/05/23 documented as of this encounter
--- OUTSIDE RECORDS SUMMARY | 2024-04-04 14:17 | XMS_ITS | Encounter Summary ---
Author Organization [facility] Address [facility] [place] [address] Care Team Providers Care Detail Manager Name Role Phone Magdalena Acosta MD Primary Care Provider [phone] Encounter Details Date Type Department Care Team (Late st Contact Info) Description 03/29/2023 Orders Only Cardiology at [address] [phone] Ranjan Delgado MD [facility] [place] [address] Severe aortic stenosis (Primary Dx) Social History [...] 4:15 PM EDT Office Visit Dermatology at [place] [address] [place] [address] Marek Bonilla MD [address] [facility], [place] [address] Scheduled Orders Name Type Priority [...] disorders documented in this encounter Care Teams Detail Manager Relationship Specialty Start Date End Date Magdalena Acosta MD [address] [place] [address] PCP - General Family Medicine 02/05/23 documented as of this encounter
--- OUTSIDE RECORDS SUMMARY | 2024-04-04 14:17 | XMS_ITS | Encounter Summary ---
[place] [address] Care Team Providers Care Stage Set Up Worker Name Role Phone Magdalena Acosta MD Primary Care Provider [phone] Reason for Visit * Reason Comments Suture / Staple Removal Encounter Details Date Type Department Care Team (Late st Contact Info) Description 02/16/2023 10:00 AM EDT Office Visit Dermatology at [place] [address] [facility] [place] [phone] Marek Bonilla MD [address] [facility], [facility] [facility] DERMATOLOGY [place], [place] [address] Visit for suture removal Social History Tobacco [...] 4:15 PM EDT Office Visit Dermatology at [place] [address] [facility] [place] [address] Marek Bonilla MD [address] [facility] [address], [place] [address] documented as of this encounter Visit Diagnoses Diagnosis Visit for suture removal Encounter for removal of sutures documented in this encounter Care Teams Stage Set Up Worker Relationship Specialty Start Date End Date Magdalena Acosta MD [address] [place] [address] PCP - General Family Medicine 02/05/23 documented as of this encounter
--- OUTSIDE RECORDS SUMMARY | 2024-04-04 14:17 | XMS_ITS | Encounter Summary ---
[place] [address] Care Team Providers Care Floral Assistant Name Role Phone Magdalena Acosta MD Primary Care Provider [phone] Encounter Details Date Type Department Care Team [...] PM EDT Office Visit Dermatology at [address] [place] [address] Marek Bonilla MD [address] [facility] [place] [address] documented as of this encounter Visit Diagnoses Not on filedocumented in this encounter Care Teams Floral Assistant Relationship Specialty Start Date End Date Magdalena Acosta MD [address] [place] [address] PCP - General Family Medicine 02/05/23 documented as of this encounter
--- OUTSIDE RECORDS SUMMARY | 2024-04-04 14:17 | XMS_ITS | Encounter Summary ---
Author Organization [facility] Address [facility] [place] [address] Care Team Providers Care Radio Repair Teacher Name Role Phone Deborah Quiroga ANURAG Primary Care Provider [phone] Encounter Details Date Type Department Care Team (Late st Contact Info) Description 01/14/2023 Refill Dermatology at [address] [address] Lupe Connor RN Social History [...] She would like the medication called into [facility] in [facility]. Discussed with Dr. Bonilla and he has approved refill of the Doxycycline 50 mg take one capsule by mouth daily in the evenings dispense 30 capsules with 2 refills. Patient notified. documented in this encounter Plan of Treatment Upcoming Encounters Date Type Department Care Team (Late st Contact Info) Description 03/01/2025 4:15 PM EDT Office Visit Dermatology at [place] [address] [facility] [place] [address] Marek Bonilla MD [address] [facility] [address] [place] [address] documented as of this encounter Visit Diagnoses Not on filedocumented in this encounter Care Teams Radio Repair Teacher Relationship Specialty Start Date End Date Deborah Quiroga APRN PCP - General Family Medicine 03/24/16 02/04/23 documented as of this encounter
--- OUTSIDE RECORDS SUMMARY | 2024-04-04 14:17 | XMS_ITS | Encounter Summary ---
Author Organization [facility] Address [facility] [place] [address] Care Team Providers Care Local Intermodal Truck Driver Name Role Phone Magdalena Acosat MD Primary Care Provider [phone] Encounter Details Date Type Department Care Team (Late st Contact Info) Description 04/27/2023 3:00 PM EDT Office Visit Rhe[place]ology [place] [address] Magdalena Peralta MD [facility] [place] [address] Mixed connective tissue disease Social History Tobacco [...] 1:5120 speckled; VIC negative; Myositis panel with FISH NET STRINGER ab 149.1 (positive); Anti U1RNP IgG 119; [...] 4:15 PM EDT Office Visit Dermatology at [place] [address] [facility] [place] [phone] Marek Bonilla MD [address] [facility] [place] [address] documented as of this encounter Visit Diagnoses Diagnosis Mixed connective tissue disease Other specified diffuse disease of connective tissue documented in this encounter Care Teams Local Intermodal Truck Driver Relationship Specialty Start Date End Date Magdalena Acosta MD [address] [place] [address] PCP - General Family Medicine 02/05/23 documented as of this encounter
--- OUTSIDE RECORDS SUMMARY | 2024-04-04 14:17 | XMS_ITS | Encounter Summary ---
Author Organization [facility] Address [facility] [place] [address] Care Team Providers Care Massage Coordinator Name Role Phone Magdalena Acosta MD Primary Care Provider [phone] Reason for Visit * Consultation (Routine) - Closed Specialty Diagnoses / Procedures Referred By Contac t Referred To Contact Rheumatology Diagnoses Weakness Kyra Haas MD [facility] [address] [place] [address] [facility] Rheumatology [address] [place] [phone] Referral ID Status Reason Start Date Expiration Date V isits Requested Visits Authorized [id number] Closed Consult, Test & Treat PCP Updated and/or Approved 02/25/2023 02/25/2024 6 6 Encounter Details Date Type Department Care Team (Late st Contact Info) Description 03/18/2023 1:00 PM EDT Office [place] [address] Kia Viramontes DO [facility] [place] [address] Magdalena Peralta MD [facility] [place] [address] Positive FRANCISCO (antinuclear antibody) Social [...] 1:5120 speckled VIC negative Myositis panel with CASTING MACHINE OPERATOR AUTOMATIC ab 149.1 (positive) Anti U1RNP IgG 119 [...] a chair without assistance of upper extremities. 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 Recommendations: #mixed connective tissue disease Start hydroxychloroquine 200 mg qd Labs today: repeat FRANCISCO, dsDNA, complements, CBC, CMP, CK, ESR, CRP Follow up 1 month The patient was seen and discussed with Dr. Wander Peralta MD Rheumatology Fellow Pager: [phone] CC: Kyra Haas * Kia Viramontes DO - 03/18/2023 1:00 PM EDT ATTENDING ADDENDUM The patient's history was reviewed, and I interviewed and examined the patient with Dr. Campbell. Arnold with her summary, findings, and plan. documented in this encounter Plan of Treatment Upcoming Encounters Date Type Department Care Team (Late st Contact Info) Description 03/01/2025 4:15 PM EDT Office Visit Dermatology at [place] [address] [place] [address] Marek Bonilla MD [address] [facility] [place] [place] [address] documented as of this encounter Results * Comprehensive metabolic panel (non-fasting) (03/18/2023 2:14 PM EDT) Glucose 93 65 - 199 mg/dL [facility] Comment:Diabetes: >=200 mg/d L plus symptoms Blood Urea Nitrogen 18 8 - 18 mg/dL [facility] Creatinine 0.99 0.70 - 1.20 mg/dL [facility] Sodium 141 135 - 145 mmol/L [facility] Potassium 4.5 3.5 - 5.0 mmol/L [facility] Comment: Please note: ??Patients with WBC >100,000 may have falsely elevated Potassium levels. ??For accurate Potassium quantification in these patients send serum separator tube (gold top) for subsequent determinations. ??Contact the Clinical Chemistry Laboratory if there are any questions. Chloride 106 98 - 107 mmol/L [facility] Carbon Dioxide 24 22 - 31 mmol/L [facility] Anion Gap 11 5 - 15 mmol/L [facility] Calcium 10.0 8.5 - 10.5 mg/dL [facility] Protein, Total 7.3 6.1 - 8.0 g/dL [facility] Albumin 4.3 3.2 - 5.2 g/dL [facility] Aspartate Aminotransferase 26 0 - 30 unit/L [facility] Alanine Aminotransferase 11 0 - 30 unit/L [facility] Alkaline Phosphatase 91 35 - 105 unit/L [facility] Bilirubin, Total 0.4 0.2 - 1.3 mg/dL [facility] Est Glomerular Filtration Rate 62 >=60 mL/min/1. 73 m?? [facility] Comment: This patient's estimated [...] DO CHEMISTRY ORDERABL ES Performing Organization Address City/State/[facility] Co de Phone Number [facility] [place] [address] * (ABNORMAL) FRANCISCO Ab by IFA (03/18/2023 2:14 PM EDT) FRANCISCO Ab Screen Test ? Result ?Flag ??Unit ??RefValue Antinuclear Ab, HEp-2 ?Positive 1:2560 ??@ ?<1:80 (Negative) ??Substrate, S ? ADDITIONAL INFORMATION --------- ?Method: Immunofluorescence using HEp-2 cellular substrate. ??FRANCISCO Titer: ? 1:2560 ??FRANCISCO Pattern: ? Speckled ?Test Performed by: ?[facility] ?[address] [place] [address] ?Chief Telephone Operator: Raymond Chaudhry M.D. Ph.D.; CLIA# [id number] ([id number]) [facility] Blood 03/18/2023 2:14 PM EDT 03/18/2023 3:02 PM EDT Narrative Resulting Agency Comment Spec In Lab Kia Viramontes DO CHEMISTRY ORDERABL ES Performing Organization Address [facility] de Phone Number [facility] [place] [address] * DNA Antibody (Double-Stranded) (03/18/2023 2:14 PM EDT) [facility] dsDNA Ab <0.6 <=15.0 IU/mL [facility] Comment: <10 negative 10-15 equivocal >15 positive This dsDNA antibody result was generated using a fluoroenzyme immunoassay on the uniRowdia 250 analyzer. This quantitative test is designed to detect IgG antibodies directed against double stranded DNA in human serum. The presence of antibodies that recognize dsDNA is a highly specific marker for systemic lupus erythematosus. Please note that as of 05/26/2022 that this testing is performed by the Special Chemistry Laboratory at [facility]. This change in testing location is associated with a change is testing method and reference intervals. Please review the results of this test in association with the posted reference intervals. Blood 03/18/2023 2:14 PM EDT 03/19/2023 7:19 AM EDT Narrative Resulting Agency Comment Spec In Lab Kia Viramontes DO LAB SEND OUT ORDER JODIE Performing Organization Address [facility]/ZIP Co de Phone Number [facility] [place] [address] * CK (03/18/2023 2:14 PM EDT) Creatine Kinase 38 0 - 160 unit/L [facility] Blood 03/18/2023 2:14 PM EDT 03/18/2023 2:24 PM EDT Narrative Resulting Agency Comment Spec In Lab Kia D Wander DO CHEMISTRY ORDERABL ES Performing Organization Address [facility] Co de Phone Number [facility] [place] [address] * C4 Complement (03/18/2023 2:14 PM EDT) Complement C4 30 10 - 40 mg/dL [facility] Blood 03/18/2023 2:14 PM EDT 03/18/2023 2:24 PM EDT Narrative Resulting Agency Comment Spec In Lab Kia D Wander DO CHEMISTRY ORDERABL ES Performing Organization Address [facility] Co de Phone Number [facility] [place] [address] * C3 Complement (03/18/2023 2:14 PM EDT) Complement C3 142 90 - 180 mg/dL [facility] Blood 03/18/2023 2:14 PM EDT 03/18/2023 2:24 PM EDT Narrative Resulting Agency Comment Spec In Lab Kia D Wander DO CHEMISTRY ORDERABL ES Performing Organization Address [facility] Co de Phone Number [facility] [place] [address] * CRP, acute inflammation (03/18/2023 2:14 PM EDT) C-Reactive Protein 3.0 <=4.9 mg/L [facility] Blood 03/18/2023 2:14 PM EDT 03/18/2023 2:24 PM EDT Narrative Resulting Agency Comment Spec In Lab Kia Viramontes DO CHEMISTRY ORDERABL ES Performing Organization Address City/[facility]/ZIP Co de Phone Number [facility] [place] [address] * (ABNORMAL) Sedimentation rate (03/18/2023 2:14 PM EDT) Sedimentation Rate Automated 68(H) 2 - 39 mm/hr [facility] Comment: Effective July 12, 2019 new capillary photometric technology has resulted in a change in reference ranges. It is recommended that each ESR result be reviewed with its own age appropriate reference range. Blood 03/18/2023 2:14 PM EDT 03/18/2023 2:24 PM EDT Narrative Resulting Agency Comment Spec In Lab Kia Viramontes DO HEMATOLOGY ORDERAB LES Performing Organization Address City/[facility] Co de Phone Number [facility] [place] [address] documented in this encounter Visit Diagnoses Diagnosis Positive FRANCISCO (antinuclear antibody) Other and unspecified nonspecific immunological findings documented in this encounter Care Teams Massage Coordinator Relationship Specialty Start Date End Date Magdalena Acosta MD [address] [place] [address] PCP - General Family Medicine 02/05/23 documented as of this encounter
--- OUTSIDE RECORDS SUMMARY | 2024-04-04 14:17 | XMS_ITS | Encounter Summary ---
Author Organization [facility] [place] [address] Care Team Providers Care Bulk Plant Operator Name Role Phone Magdalena Acosta MD Primary Care Provider [phone] Encounter Details Date Type Department Care Team (Late st Contact Info) Description 03/29/2023 Notes Only Cardiology at [address] [phone] Vahid Plasencia, RN Social History Tobacco Use [...] 82/51; Mild AR; Moderate MR; Trace TR [facility] 11/09/2022: Non obstructive CAD STS 4.1 Plan:Schedule SDM clinic, diagnostics and frailty assessment. documented in this encounter Plan of Treatment Upcoming Encounters Date Type Department Care Team (Late st Contact Info) Description 03/01/2025 4:15 PM EDT Office Visit Dermatology at [place] [address] [place] [address] Marek Bonilla MD [address] [place] [address] documented as of this encounter Visit Diagnoses Not on filedocumented in this encounter Care Teams Bulk Plant Operator Relationship Specialty Start Date End Date Magdalena Acosta MD [address] [place] [address] PCP - General Family Medicine 02/05/23 documented as of this encounter
--- OUTSIDE RECORDS SUMMARY | 2024-04-04 14:18 | XMS_ITS | Encounter Summary ---
Author Organization [facility] [place] [address] Care Team Providers Care Hospital Pharmacist Name Role Phone Deborah Quiroga APRN Primary Care Provider [phone] Reason for Referral * Consultation (Routine) - Closed Specialty Diagnoses / Procedures Referred By Crispin maxwell Referred To Contact Neurology Diagnoses Polyneuropathy Deborah Quiroga APRN [address] [place] [address] [facility] Neurology [address] [place] [phone] Referral ID Status Reason Start Date Expiration Date V isits Requested Visits Authorized [id number] Closed Consult, Test & Treat 10/29/2022 10/29/2023 1 1 Encounter Details Date Type Department Care Team (Latest Contact Info) Description 10/29/2022 Transcribe Orders eDH Incoming Referrals [phone] Deborah Quiroga APRN [address] [place] [address] Polyneuropathy (Primary Dx) Social History [...] 4:15 PM EDT Office Visit Dermatology at [place] [address] [place] [address] Marek Bonilla MD [address] [place] [address] Scheduled Referrals Name Type Priority Associated Diagnoses Orde r Schedule Referral to Neurology Outpatient Referral Routine Polyneuropathy Ordered: 10/29/2022 documented as of this encounter Visit Diagnoses Diagnosis Polyneuropathy- Primary Unspecified hereditary and idiopathic peripheral neuropathy documented in this encounter Care Teams Hospital Pharmacist Relationship Specialty Start Date End Date Deborah Quiroga APRN PCP - General Family Medicine 03/24/16 02/04/23 documented as of this encounter
--- OUTSIDE RECORDS SUMMARY | 2024-04-04 14:18 | XMS_ITS | Encounter Summary ---
[place] [address] Care Team Providers Care Apparatus Engineering Technologist Name Role Phone Junaid, Deborah Shields APRN Primary Care Provider [phone] Encounter Details Date Type Department Care Team (Late st Contact Info) Description 10/20/2016 11:20 AM EDT Office [place] [phone] Alirio Esparza MD S/P AVR Social History [...] all of her postoperative tests done at [facility]. Her echo shows a well-seated valve. Her EF, for some reason, was read as in the 45% to 50% range. She had a normal EF to start. I think that will need to be repeated at [facility]. She has no perivalve leak. Her mean gradient is single digit. She has no other valvular abnormalities. Ms. hTacker has no coronary disease. Her chest x-ray [...] should continue to see Dr. Burrell, her staff training and development manager at [facility]. cc: Dr. Burrell documented in this encounter Plan of Treatment Upcoming Encounters Date Type Department Care Team (Late st Contact Info) Description 03/01/2025 4:15 PM EDT Office Visit Dermatology at [place] [address] [place] [phone] Marek Bonilla MD [address] [facility], [place] [address] documented as of this encounter Visit Diagnoses Diagnosis S/P AVR Heart valve replaced by other means documented in this encounter Care Teams Apparatus Engineering Technologist Relationship Specialty Start Date End Date Deborah Quiroga APRN PCP - General Family Medicine 03/24/16 02/04/23 documented as of this encounter
--- OUTSIDE RECORDS SUMMARY | 2024-04-04 14:18 | XMS_ITS | Encounter Summary ---
Author Organization [facility] Address [facility] [place] [address] Care Team Providers Care Transportation Design Engineer Name Role Phone Deborah Quiroga APRN Primary Care Provider [phone] Encounter Details Date Type Department Care Team (Late st Contact Info) Description 06/18/2017 11:00 AM EST Office Visit Hematology [place] [address] Markel Borjas MD [facility] [address] [place] [address] Neutropenia, unspecified type Social History Tobacco Use [...] 06/18/2017 11:00 AM EST Hematology Outpatient Clinic [facility] Hematology Outpatient Consult Note [...] TOUCH PREP, CLOT SECTION, CORE ??BIOPSY); [OSR# [id number], COLLECTED 06/23/2016, 19 SLIDES]: ?1. 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 Past Medical/Surgical History: 1. Leukopenia -element of neutropenia, as noted above 2. Aortic Stenosis -severe -AVR surgery 3. Hypercholesterolemia 4. Depression 5. Hypertension 6. 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 Extremities: No edema. Labs: Hgb= 13 Wbav=390 ANC= 0.6 Imaging As above - reviewed [...] 4:15 PM EDT Office Visit Dermatology at [place] [address] [place] [address] Marek Bonilla MD [address] [place] [address] documented as of this encounter Visit Diagnoses Diagnosis Neutropenia, unspecified type documented in this encounter Care Teams Transportation Design Engineer Relationship Specialty Start Date End Date Deborah Quiroga APRN PCP - General Family Medicine 03/24/16 02/04/23 documented as of this encounter
--- OUTSIDE RECORDS SUMMARY | 2024-04-04 14:18 | XMS_ITS | Encounter Summary ---
[place] [address] Care Team Providers Care Information Technology Instructor Name Role Phone Deborah Quiroga APRN Primary Care Provider [phone] Encounter Details Date Type Department Care Team [...] PM EDT Office Visit Dermatology at [address] [place] [address] Marek Bonilla MD [address] [place] [address] documented as of this encounter Visit Diagnoses Not on filedocumented in this encounter Care Teams Information Technology Instructor Relationship Specialty Start Date End Date Deborah Quiroga APRN PCP - General Family Medicine 03/24/16 02/04/23 documented as of this encounter
--- OUTSIDE RECORDS SUMMARY | 2024-04-04 14:18 | XMS_ITS | Encounter Summary ---
[place] [address] Care Team Providers Care Multifocal Button Inspector Name Role Phone Deborah Quiroga APRN Primary Care Provider [phone] Encounter Details Date Type Department Care Team (Late st Contact Info) Description 11/11/2020 Refill Dermatology at [address] [phone] Taylor Malone, BAG PRESS OPERATOR Social History Tobacco Use Types Packs/Day [...] PM EDT Office Visit Dermatology at [address] [phone] Marek Bonilla MD [address] [facility] [place] [address] documented as of this encounter Visit Diagnoses Not on filedocumented in this encounter Care Teams Multifocal Button Inspector Relationship Specialty Start Date End Date Deborah Quiroga APRN PCP - General Family Medicine 03/24/16 02/04/23 documented as of this encounter
--- OUTSIDE RECORDS SUMMARY | 2024-04-04 14:18 | XMS_ITS | Encounter Summary ---
Author Organization [facility] Address [facility] [place] [address] Care Team Providers Care Manager Games Name Role Phone Deborah Quiroga APRN Primary Care Provider [phone] Encounter Details Date Type Department Care Team (Latest Contact Info) Description 07/03/2022 1:36 PM EST - 07/03/2022 11:59 PM EST Hospital Encounter Hematology [place] [address] Discharge Disposition: Home Social History Tobacco Use [...] 4:15 PM EDT Office Visit Dermatology at [place] [address] [place] [address] Marek Bonilla MD [address] [facility] [place] [address] documented as of this encounter Procedures Procedure Name Priority Date/Time Associated Diagnosis Comments FOLATE, SERUM Routine 07/03/2022 1:59 PM EST VITAMIN B12 Routine 07/03/2022 1:59 PM EST documented in this encounter Results * Folate, serum (07/03/2022 1:59 PM EST) Folate >20.0 4.8 - 24.2 ng/mL [facility] Blood Venous Draw / Unknown 07/03/2022 1:59 PM EST 07/03/2022 2:13 PM EST Narrative Resulting Agency Comment Spec In Lab Markel Borjas MD CHEMISTRY ORDERABL ES Performing Organization Address City/[facility]/ZIP Co de Phone Number [facility] [place] [address] * Vitamin B12 (07/03/2022 1:59 PM EST) Vitamin B12 449 232 - 1,245 pg/mL [facility] Blood Venous Draw / Unknown 07/03/2022 1:59 PM EST 07/03/2022 2:13 PM EST Narrative Resulting Agency Comment Spec In Lab Markel Borjas MD CHEMISTRY ORDERABL ES Performing Organization Address [facility] [place] [address] documented in this encounter Visit Diagnoses Not on filedocumented in this encounter Care Teams Manager Games Relationship Specialty Start Date End Date Deborah Quiroga APRN PCP - General Family Medicine 03/24/16 02/04/23 documented as of this encounter
--- OUTSIDE RECORDS SUMMARY | 2024-04-04 14:18 | XMS_ITS | Encounter Summary ---
Author Organization [facility] Address [facility] [place] [address] Care Team Providers Care Radio News Anchor Name Role Phone Junaid Deborah Shields APRN Primary Care Provider [phone] Encounter Details Date Type Department Care Team (Latest Contact Info) Description 06/22/2022 10:00 AM EST Office [place] [phone] Raymond Loredo MD [facility] [place] [address] Raynaud's phenomenon without gangrene; Positive FRANCISCO (antinuclear [...] Despite a positive blood test for lupus (FRANCISOC) there is nothing in her exam to [...] can be done locally or here at [facility] that the current time is not particularly [...] for surgery by Dr. Rogers here at [facility]. In addition to painful dysesthesias in her [...] radiocarpal or ulnocarpal joints. Hands: Normal director data analytics and claw. SJC/TJC 0/0. Knees: Decreased flexion [...] PM EDT Office Visit Dermatology at [place] [address] [place] [address] Marek Bonilla MD [address] [facility] [place] [address] documented as of this encounter Visit Diagnoses Diagnosis Raynaud's phenomenon without gangrene Positive FRANCISCO (antinuclear antibody) Other and unspecified nonspecific immunological findings Primary osteoarthritis involving multiple joints Cervical disc disorder at C6-C7 level with radiculopathy documented in this encounter Care Teams Radio News Anchor Relationship Specialty Start Date End Date Deborah Quiroga APRN PCP - General Family Medicine 03/24/16 02/04/23 documented as of this encounter
--- OUTSIDE RECORDS SUMMARY | 2024-04-04 14:18 | XMS_ITS | Encounter Summary ---
Author Organization [facility] Address [place] [address] Care Team Providers Care Audio Video Mechanic Name Role Phone Ashley Quirogazac Shields APRN Primary Care Provider [phone] Reason for Referral * Consultation (Routine) - Closed Specialty Diagnoses / Procedures Referred By Contac t Referred To Contact Neurology Diagnoses Neck pain Popeye Rogers MD [facility] [address] [place] [address] Kyra Haas MD [facility] [address] [address] Referral ID Status Reason Start Date Expiration Date V isits Requested Visits Authorized [id number] Closed Consult, Test & Treat 06/29/2022 06/29/2023 1 1 Reason for Visit * Reason Comments Neck Pain Weak in both arms, p ain and tingling in arms and hands Encounter Details Date Type Department Care Team (Late st Contact Info) Description 06/29/2022 10:20 AM EST Office Visit [facility] [place] [address] Popeye Rogers MD [facility] [place] [address] Neck pain Social History Tobacco Use Types [...] have EMG and nerve conduction studies in [place] that showed carpal tunnel syndrome. I do not have a copy of that report. documented in this encounter Plan of Treatment Upcoming Encounters Date Type Department Care Team (Late st Contact Info) Description 03/01/2025 4:15 PM EDT Office Visit Dermatology at [place] [address] [place] [address] Marek Bonilla MD [address] [place] [address] Scheduled Referrals Name Type Priority Associated Diagnoses Orde r Schedule Referral to Neurology Outpatient Referral Routine Neck pain Ordered: 06/29/2022 documented as of this encounter Visit Diagnoses Diagnosis Neck pain Cervicalgia documented in this encounter Care Teams Audio Video Mechanic Relationship Specialty Start Date End Date Deborah Quiroga APRN PCP - General Family Medicine 03/24/16 02/04/23 documented as of this encounter
--- OUTSIDE RECORDS SUMMARY | 2024-04-04 14:18 | XMS_ITS | Encounter Summary ---
[place] [address] Care Team Providers Care Reviewer Sales Name Role Phone Deborah Quiroga APRN Primary Care Provider Encounter Details Date Type Department Care Team (Late st Contact Info) Description 07/21/2017 Orders Only Hematology [place] [address] Alexandrea Greenwood RN Other neutropenia Social History [...] EDT Office Visit Dermatology at [place] [address] [place] [address] Marek Bonilla MD [address], [place] [address] documented as of this encounter Visit Diagnoses Diagnosis Other neutropenia documented in this encounter Care Teams Reviewer Sales Relationship Specialty Start Date End Date Deborah Quiroga APRN PCP - General Family Medicine 03/24/16 02/04/23 documented as of this encounter
--- OUTSIDE RECORDS SUMMARY | 2024-04-04 14:18 | XMS_ITS | Encounter Summary ---
Author Organization [facility] Address [facility] [place] [address] Care Team Providers Care Hospital Clinic Assistant Name Role Phone Deborah Quiroga APRN Primary Care Provider [phone] Encounter Details Date Type Department Care Team (Latest Contact Info) Description 07/03/2022 12:28 PM EST - 07/03/2022 1:35 PM EST Hospital Encounter [place] [address] Chronic idiopathic neutropenia Discharge Disposition: Home Social [...] 4:15 PM EDT Office Visit Dermatology at [place] [address] [facility] [address] [place] [phone] Marek Bonilla MD [address], [place] [address] documented as of this encounter Procedures Procedure [...] (ABNORMAL) Differential, Automated (07/03/2022 12:40 PM EST) [facility] Neutrophil % 72.9 % [facility] Neutrophil Absolute 2.61 1.70 - 6.10 x10(3)/[facility] Lymph % 18.4 % [facility] Lymphocytes Abs 0.7(L) 0.9 - 3.2 x10(3)/[facility] Monocyte % 8.4 % [facility] Monocyte Abs 0.3 0.3 - 0.9 x10(3)/[facility] Eos % 0.0 % [facility] Eosinophils Abs 0.0 0.0 - 0.4 x10(3)/[facility] Basophil % 0.3 % [facility] Baso Absolute 0.0 0.0 - 0.1 x10(3)/[facility] Immature Gran % 0.00 % [facility] Comment: Immature granulocytes(IG's)percentage and absolute count will include metamyelocytes, myelocytes, and promyelocytes. Blood smears from CBCs yielding IG's will be scanned manually for concordance. If this scan disagrees with the automated IG or if promyelocytes are noted, a manual differential will be performed. Immature Gran Absolute 0.00 0.00 - 0.04 x10(3)/[facility] Blood 07/03/2022 12:4 0 PM EST 07/03/2022 1:03 PM EST Narrative Resulting Agency Comment Spec In Lab Markel Borjas MD HEMATOLOGY ORDERAB LES [facility] [place] [address] * (ABNORMAL) Hemogram (07/03/2022 12:40 PM EST) White Blood Cell 3.6(L) 4.0 - 9.5 x10(3)/[facility] Red Blood Cell 3.61(L) 4.00 - [...] Mean Platelet Volume 9.2 7.6 - 12.9 [facility] NRBC% auto 0.0 % [facility] NRBC Absolute 0.000 0.000 - 0.000 x10(3)/mc L [facility] Blood 07/03/2022 12:4 0 PM EST 07/03/2022 1:03 PM EST Narrative Resulting Agency Comment Spec In Lab Markel Borjas MD HEMATOLOGY ORDERAB LES [facility] [place] [address] * (ABNORMAL) Comprehensive metabolic panel (non-fasting) (07/03/2022 [...] CHEMISTRY ORDERABL ES [facility] [place] [address] documented in this encounter Visit Diagnoses Diagnosis Chronic idiopathic neutropenia Other neutropenia documented in this encounter Care Teams Hospital Clinic Assistant Relationship Specialty Start Date End Date Deborah Quiroga APRN PCP - General Family Medicine 03/24/16 02/04/23 documented as of this encounter
--- OUTSIDE RECORDS SUMMARY | 2024-04-04 14:18 | XMS_ITS | Encounter Summary ---
Author Organization [facility] Address [facility] [place] [address] Care Team Providers Care Felt Finisher Name Role Phone Junaid Deborah Shields APRN Primary Care Provider [phone] Reason for Visit * Reason Comments Schedule Office Case Pain right leg Encounter Details Date Type Department Care Team (Late st Contact Info) Description 12/11/2016 9:00 AM EDT Office Visit Hematology [place] [address] Markel Borjas MD [address] [place] [address] Neutropenia, unspecified type Social History Tobacco Use [...] 12/11/2016 9:00 AM EDT Hematology Outpatient Clinic [facility] Hematology Outpatient Consult Note CC: 60 year [...] TOUCH PREP, CLOT SECTION, CORE ??BIOPSY); [OSR# [id number], COLLECTED 06/23/2016, 19 SLIDES]: ?1. 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 Extremities: No edema. Labs: Hgb= 13 Wqfg=220 ANC= 0.5 Imaging As above - reviewed [...] 4:15 PM EDT Office Visit Dermatology at [place] [address] [place] [phone] Marek Bonilla MD [address] [facility] [place] [address] documented as of this encounter Results * (ABNORMAL) CBC (with Diff) (06/11/2017 1:19 PM EST) Pathologist [facility] White Blood Cell 2.28(EXTER NAL/ABN) 4.4 - 10.8 EXTERNAL LAB Hemoglobin 13.9 12.0 - 15.5 EXTERNAL LAB Hematocrit 43.2 36.0 - 46.0 EXTERNAL LAB Platelet 269 130 - 400 EXTERNAL LAB Neutrophil Absolute (ANC) - Automated 0.63(EXTER NAL/ABN) 1.2 - 6.7 EXTERNAL LAB [...] type documented in this encounter Care Teams Felt Finisher Relationship Specialty Start Date End Date Deborah Quiroga, TIP MENDER PCP - General Family Medicine 03/24/16 02/04/23 documented as of this encounter
--- OUTSIDE RECORDS SUMMARY | 2024-04-04 14:18 | XMS_ITS | Encounter Summary ---
Author Organization [facility] [place] [address] Care Team Providers Care Multi Disciplined Language Analyst Name Role Phone Deborah Quiroga APRN Primary Care Provider [phone] Encounter Details Date Type Department Care Team (Late st Contact Info) Description 11/09/2022 11:30 AM EDT - 11/09/2022 12:30 PM EDT [place] [address] Nitesh Escobedo MD [facility] [place] [address] CARDIAC CATHETERIZATION Social History Tobacco Use Types [...] Center 02/05/2023 2:30 PM Marek Bonilla MD [facility] New Medications to be Picked Up None For questions regarding this document or issues relating to this hospitalization on the Medical Service, please contact your inpatient physician through the [facility] Scenario Writer . Issues afterhours and on weekends will be handled by the Hospitalist staff on-call. * Attachments The following attachments cannot be sent through Care Everywhere. * Coronary Angiogram: Post-op ([place] Korean) * Right Heart Catheterization: Pulmonary Artery Catheterization: Post-op ([place]) documented in this encounter Medications at [...] 11:20 AM EDT . [facility] Interventional Cardiology Adult Pre-Procedure H&P Update: Cardiac Catheterization Purnima Thacker [id number] 1955 Chief Complaint: BONILLA HPI: Purnima Thacker [...] Cardiology 11/09/22 11:43 AM [facility] Pager: [phone] documented in this encounter Plan of Treatment Upcoming Encounters Date Type Department Care Team (Late st Contact Info) Description 03/01/2025 4:15 PM EDT Office Visit Dermatology at [place] [employer] [address] [facility] [place] [address] Marek Bonilla MD [address] [facility], [place] [address] documented as of this encounter Procedures Procedure Name Priority Date/Time Associated Diagnosis Comments CARDIAC CATHETERIZATION Routine 11/10/19 1:05 PM EDT Aortic valve stenosis, etiology of cardiac valve disease unspecified Cath Plmt Left Heart Cath & Arts W/Inj & Angio Img S&I ([id number]) 11/09/2022 11:51 AM EDT Aortic valve stenosis, etiology of cardiac valve disease unspecified EKG 12-LEAD Routine 11/09/2022 11:17 AM EDT Aortic valve stenosis, etiology of cardiac valve disease unspecified documented in this encounter Results * CARDIAC CATHETERIZATION (11/09/2022 1:05 PM EDT) Anatomical Region Laterality Modality Other Narrative 11/09/2022 2:01 PM EDT ?[facility] ? Cardiac Catheterization/Intervention Report ? Patient Name: Kirstie, Purnima M. ? Procedure Date: 11/09/2022 ? A #: [id number] ? Primary Physician: Nitesh Escobedo ? Case #: [id number] ? File Name: [id number] ? Catheterization Order Number: [id number] ? [facility] ? Final Report [place], [place] ? Patient Name: ? Purnima M. Kirstie ? ID#: ?[id number] ? : ?1955 ? Procedure Date: ? [...] (Bezet) 457 ms MUSE SYSTEM Calculated P [place] 44 degrees MUSE SYSTEM Calculated R [place] 33 degrees MUSE SYSTEM Calculated T [place] 30 degrees MUSE SYSTEM INTERPRETATION Sinus rhythm Occasional Premature ventricular complexes Otherwise normal ECG When compared with ECG of 21-SEP-2016 12:26, Premature ventricular complexes are now Present LA interval has decreased Nonspecific T wave abnormality has replaced inverted T waves in Inferior leads I personally reviewed the tracing and edited the fellows interpretation Confirmed by fellow MD Anitha, Carissa ([id number]) on 11/09/2022 6:17:28 PM Confirmed by Elsa [...] MD) documented in this encounter Care Teams Multi Disciplined Language Analyst Relationship Specialty Start Date End Date Deborah Quiroga, LODE MINER BLASTING PCP - General Family Medicine 03/24/16 02/04/23 documented as of this encounter
--- OUTSIDE RECORDS SUMMARY | 2024-04-04 14:18 | XMS_ITS | Encounter Summary ---
[place] [address] Care Team Providers Care City Attorney Name Role Phone JunaidDeborah APRN Primary Care Provider [phone] Reason for Visit * Reason Comments Follow-up Encounter Details Date Type Department Care Team (Late st Contact Info) Description 01/10/2021 4:30 PM EDT Office Visit Dermatology at [place] [address] [facility] [place] [address] Marek Bonilla MD [address] [facility] A DERMATOLOGY [place], [place] [address] Rosacea Social History Tobacco Use Types Packs/Day [...] cutaneous and ocular 2. Previously told by school bus inspector that she had corneal tears from her [...] 3 refills. Will call this in her [facility] pharmacy in [place] 3. Continue metronidazole 0.75% gel applying once [...] PM EDT Office Visit Dermatology at [address] [address] Marek Bonilla MD [address] [facility], [place] [address] documented as of this encounter Visit Diagnoses Diagnosis Rosacea documented in this encounter Care Teams City Attorney Relationship Specialty Start Date End Date Deborah Quiroga APRN PCP - General Family Medicine 03/24/16 02/04/23 documented as of this encounter
--- OUTSIDE RECORDS SUMMARY | 2024-04-04 14:18 | XMS_ITS | Encounter Summary ---
Author Organization [facility] [place] [address] Care Team Providers Care Toe Pounder Name Role Phone Ashley Quirogan [place] ANURAG Primary Care Provider [phone] Encounter Details Date Type Department Care Team (Late st Contact Info) Description 12/04/2016 External Results [place] [address] Teresa Dodson, RN Social History Tobacco Use [...] 4:15 PM EDT Office Visit Dermatology at [place] [address] [facility] [place] [address] Marek Bonilla MD [address], [place] [address] documented as of this encounter Procedures Procedure Name Priority Date/Time Associated Diagnosis Comments CBC (WITH DIFF) Routine 12/03/2016 11:35 AM EDT COMPREHENSIVE METABOLIC PANEL Routine 12/03/2016 11:35 AM EDT documented in this encounter Results * (ABNORMAL) Comprehensive metabolic panel (non-fasting) (12/03/2016 11:35 AM EDT) Glucose 85(Cryptographic Clerk al Lab) Blood Urea Nitrogen 11(Cryptographic Clerk al Lab) Creatinine 0.93(Exte rnal Lab) Sodium 140(Exter nal Lab) Potassium 4.2(Exter nal Lab) Chloride 104(Exter nal Lab) Calcium 10.0(Exte rnal Lab) Protein, Total 8.1(Exter nal Lab) Albumin 3.5(Exter nal Lab) Bilirubin, Total 0.25(Exte rnal Lab) Alkaline Phosphatase 96(Cryptographic Clerk al Lab) Aspartate Aminotransferase 18(Cryptographic Clerk al Lab) Alanine Aminotransferase 21(Cryptographic Clerk al Lab) Blood specimen (specimen) 12/03/2016 11:35 AM EDT Historical Provider CHEMISTRY ORDERAB LES * (ABNORMAL) CBC (with Diff) (12/03/2016 11:35 AM EDT) White Blood Cell 1.61(EXTER NAL/ABN) 4.4 - 10.8 Hemoglobin 13.0(Exter nal Lab) Hematocrit 39.8(Exter nal Lab) Platelet 248(Cryptographic Clerk al Lab) Neutrophil Absolute (ANC) - Automated 0.5(TIMBER FRAMER HELPER AL/ABN) Blood specimen (specimen) 12/03/2016 11:35 AM EDT Historical Provider HEMATOLOGY ORDERA BLES documented in this encounter Visit Diagnoses Not on filedocumented in this encounter Care Teams Toe Pounder Relationship Specialty Start Date End Date Deborah Quiroga, MARINE PROPULSION TECHNICIAN PCP - General Family Medicine 03/24/16 02/04/23 documented as of this encounter
--- OUTSIDE RECORDS SUMMARY | 2024-04-04 14:18 | XMS_ITS | Encounter Summary ---
[place] [address] Care Team Providers Care Internet Marketing Executive Name Role Phone Deborah Quiroga APRN Primary Care Provider [phone] Encounter Details Date Type Department Care Team (Late st Contact Info) Description 06/05/2021 Interpretation Only [address] [address] Deborah Quiroga HEALTHCARE MARKETER [address] [address] Social History Tobacco Use Types Packs/Day Years [...] 4:15 PM EDT Office Visit Dermatology at [place] [address] [facility] [place] [address] Marek Bonilla MD [address] [facility] [place] [address] documented as of this encounter Procedures Procedure Name Priority Date/Time Associated Diagnosis Comments MAMMO SCREENING CAD BILATERAL Routine 06/05/2021 11:42 AM EDT documented in this encounter Results * Mammo Screening Cad Bilateral (06/05/2021 11:42 AM EDT) PT CLASS O DH RAD ADMITDTTM DH RAD PT RAD INFO [id number]^EV ERETT^DEBORAH^E DH RAD EXAM DESC MADDSC^SCREEN MAMMO [...] questions please contact the health home care aide that requested your imaging first. [...] have questions please contactthe health home care aide that requested your imaging first. Electronically signed by: Rocael Villatoro MD, [facility]([phone]), at 06/05/2021 1:27 PM Deborah Quiroga APRN IMGerman MAMMO ORDERABLE S documented in this encounter Visit Diagnoses Not on filedocumented in this encounter Care Teams Internet Marketing Executive Relationship Specialty Start Date End Date Deborah Quiroga APRN PCP - General Family Medicine 03/24/16 02/04/23 documented as of this encounter
--- OUTSIDE RECORDS SUMMARY | 2024-04-04 14:18 | XMS_ITS | Encounter Summary ---
Author Organization [facility] Address [facility] [place] [address] Care Team Providers Care Digital Strategy Specialist Name Role Phone Deborah Quiroga APRN Primary Care Provider [phone] Encounter Details Date Type Department Care Team (Late st Contact Info) Description 03/01/2020 11:30 AM EDT Office Visit Hematology [place] [address] Patrick Borjas MD [facility] [address] [address] [place] [address] Neutropenia, unspecified type Social History Tobacco Use [...] 03/01/2020 11:30 AM EDT Hematology Outpatient Clinic [facility] [...] TOUCH PREP, CLOT SECTION, CORE ??BIOPSY); [OSR# [id number], COLLECTED 06/23/2016, 19 SLIDES]: ?1. 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 Extremities: No edema. Labs: Hgb= 12.4 Oysr=800 ANC= 2.5 Imaging As above - reviewed [...] PM EDT Office Visit Dermatology at [address] [address] Marek Bonilla MD [address] [facility], [place] [address] documented as of this encounter Visit Diagnoses Diagnosis Neutropenia, unspecified type documented in this encounter Care Teams Digital Strategy Specialist Relationship Specialty Start Date End Date Deborah Quiroga APRN PCP - General Family Medicine 03/24/16 02/04/23 documented as of this encounter
--- OUTSIDE RECORDS SUMMARY | 2024-04-04 14:18 | XMS_ITS | Encounter Summary ---
[place] [address] Care Team Providers Care Administration Clerk Name Role Phone Deborah Quiroga APRN Primary Care Provider Encounter Details Date Type Department Care Team (Late st Contact Info) Description 06/17/2022 Ancillary Procedure [place] [address] Deborah Quiroga, BOARD HAMMER OPERATOR [address] [address] Social History Tobacco Use Types Packs/Day Years [...] PM EDT Office Visit Dermatology at [place] [address] [facility] [place] [address] Marek Bonilla MD [address] [facility], [place] [address] documented as of this encounter Procedures Procedure [...] FILM LIBRARY OR DERABLES Performing Organization Address City/State[facility] Co de Phone Number [place], [place] documented in this encounter Visit Diagnoses Not on filedocumented in this encounter Care Teams Administration Clerk Relationship Specialty Start Date End Date Deborah Quiroga APRN PCP - General Family Medicine 03/24/16 02/04/23 documented as of this encounter
--- OUTSIDE RECORDS SUMMARY | 2024-04-04 14:18 | XMS_ITS | Encounter Summary ---
Author Organization [facility] [place] [address] Care Team Providers Care Solderer Electronic Name Role Phone Deborah Quiroga APRN Primary Care Provider [phone] Encounter Details Date Type Department Care Team (Late st Contact Info) Description 11/02/2022 Orders Only [place]on[place] [address] Emily Lyons PA [facility] [place] [address] Aortic valve stenosis, etiology of cardiac valve [...] 4:15 PM EDT Office Visit Dermatology at [place] [address] [facility] [place] [address] Marek Bonilla MD [address], [place] [address] documented as of this encounter Visit Diagnoses Diagnosis Aortic valve stenosis, etiology of cardiac valve disease unspecified documented in this encounter Care Teams Solderer Electronic Relationship Specialty Start Date End Date Deborah Quiroga APRN PCP - General Family Medicine 03/24/16 02/04/23 documented as of this encounter
--- OUTSIDE RECORDS SUMMARY | 2024-04-04 14:18 | XMS_ITS | Encounter Summary ---
[place] [address] Care Team Providers Care Business Ethics Professor Name Role Phone Deborah Quiroga APRN Primary Care Provider [phone] Encounter Details Date Type Department Care Team (Late st Contact Info) Description 01/13/2021 Refill Dermatology at [address] [phone] Taylor Malone, PHONE OPERATOR Social History Tobacco Use Types Packs/Day [...] PM EDT Office Visit Dermatology at [address] [phone] Marek Bonilla MD [address] [facility] [place] [address] documented as of this encounter Visit Diagnoses Not on filedocumented in this encounter Care Teams Business Ethics Professor Relationship Specialty Start Date End Date Deborah Quiroga APRN PCP - General Family Medicine 03/24/16 02/04/23 documented as of this encounter
--- OUTSIDE RECORDS SUMMARY | 2024-04-04 14:18 | XMS_ITS | Encounter Summary ---
Author Organization [facility] Address [facility] [place] [address] Care Team Providers Care Engineering Mgr Name Role Phone Deborah Quiroga ANURAG Primary Care Provider [phone] Encounter Details Date Type Department Care Team (Late Contact Info) Description 02/07/2020 Telephone Hematology [place] [address] Ellen Rios RN Social History Tobacco Use [...] 02/07/2020 12:59 PM EDT Message received from unit secretary: Injection/Infusion Referral Services to be provided for pt are: CBC only at [facility]- Pt will go by 02/27 Orders faxed to [phone]). Spoke with pt. She will call [facility] directly to schedule a time that works for her. documented in this encounter Plan of Treatment Upcoming Encounters Date Type Department Care Team (Late Contact Info) Description 03/01/2025 4:15 PM EDT Office Visit Dermatology at [address] [address] Marek Bonilla MD [address] [place] [address] documented as of this encounter Visit Diagnoses Not on filedocumented in this encounter Care Teams Engineering Mgr Relationship Specialty Start Date End Date Deborah Quiroga APRN PCP - General Family Medicine 03/24/16 02/04/23 documented as of this encounter
--- OUTSIDE RECORDS SUMMARY | 2024-04-04 14:18 | XMS_ITS | Encounter Summary ---
[place] [address] Care Team Providers Care Sales Driver Name Role Phone Ashley Quirogan Cornelius ANURAG Primary Care Provider [phone] Reason for Visit * Reason Comments Skin Check Encounter Details Date Type Department Care Team (Late st Contact Info) Description 11/11/2020 10:45 AM EDT Office Visit Dermatology at [address] [place] [address] Marek Bonilla MD [address] [facility], [address] DERMATOLOGY [place], [place] [address] Rosacea; Acrochordon Social History Tobacco Use Types [...] Discussed the possibility of getting this through [facility] or from the [facility] pharmacy if necessary. She has not yet [...] EDT Office Visit Dermatology at [place] [address] [facility] [place] [address] Marek Bonilla MD [address] [facility], [place] [address] documented as of this encounter Visit Diagnoses Diagnosis Rosacea Acrochordon Unspecified hypertrophic and atrophic condition of skin documented in this encounter Care Teams Sales Driver Relationship Specialty Start Date End Date Deborah Quiroga APRN PCP - General Family Medicine 03/24/16 02/04/23 documented as of this encounter
--- OUTSIDE RECORDS SUMMARY | 2024-04-04 14:18 | XMS_ITS | Encounter Summary ---
Author Organization [facility] [place] [address] Care Team Providers Care Joint Cleaning Machine Operator Name Role Phone Ashley Quirogan Sylvia ANUARG Primary Care Provider [phone] Reason for Visit * Reason Onset Date Comments Results 12/03/2016 Encounter Details Date Type Department Care Team (Late Contact Info) Description 12/03/2016 Telephone Hematology [place] [address] Yudith Valentine RN Results Social History Tobacco [...] EDT RN received call from Maddy at [facility] reporting critical WBC at 1.61, and ANC of 0.5. She will fax the full results to this office for account review specialist notified DR Borjas of above results documented in this encounter Plan of Treatment Upcoming Encounters Date Type Department Care Team (Late st Contact Info) Description 03/01/2025 4:15 PM EDT Office Visit Dermatology at [address] [address] Marek Bonilla MD [address], [place] [address] documented as of this encounter Visit Diagnoses Not on filedocumented in this encounter Care Teams Joint Cleaning Machine Operator Relationship Specialty Start Date End Date Deborah Quiroga APRN PCP - General Family Medicine 03/24/16 02/04/23 documented as of this encounter
--- OUTSIDE RECORDS SUMMARY | 2024-04-04 14:18 | XMS_ITS | Encounter Summary ---
Author Organization [facility] [place] [address] Care Team Providers Care Nursing Director Name Role Phone Deborah Quiroga APRN Primary Care Provider [phone] Encounter Details Date Type Department Care Team (Late st Contact Info) Description 06/08/2022 Ancillary Procedure [place] [phone] Deborah Quiroga, AIR DRIER [address] [address] Social History Tobacco Use Types Packs/Day Years [...] PM EDT Office Visit Dermatology at [place] [address] [place] [place] [address] Marek Bonilla MD [address] [facility], [place] [address] documented as of this encounter Procedures Procedure [...] FILM LIBRARY OR DERABLES Performing Organization Address City/State/[facility] Co de Phone Number [place], [place] documented in this encounter Visit Diagnoses Not on filedocumented in this encounter Care Teams Nursing Director Relationship Specialty Start Date End Date Deborah Quiroga APRN PCP - General Family Medicine 03/24/16 02/04/23 documented as of this encounter
--- OUTSIDE RECORDS SUMMARY | 2024-04-04 14:18 | XMS_ITS | Encounter Summary ---
[place] [address] Care Team Providers Care Crushing Mill Operator Name Role Phone Deborah Quiroga APRN Primary Care Provider [phone]- [phone] Encounter Details Date Type Department Care Team (Late st Contact Info) Description 06/05/2021 Interpretation Only [address] [address] Deborah Quiroga BOAT CANVAS MAKER AND INSTALLER [address] [id number] Social History Tobacco Use Types Packs/Day Years [...] 4:15 PM EDT Office Visit Dermatology at [place] [address] [facility] [place] [address] Marek Bonilla MD 580 [facility], [place] [address] documented as of this encounter Procedures Procedure Name Priority Date/Time Associated Diagnosis Comments DXA CENTRAL SPINE, HIP, AND/OR WHOLE BODY (GENERIC) Routine 06/05/2021 11:58 AM EDT documented in this encounter Results * DXA Central Spine, Hip, and/or Whole Body (Generic) (06/05/2021 11:58 AM EDT) PT CLASS O RAD ADMITDTTM RAD PT RAD INFO [id number]^E VERETT^DEBORAH ^E RAD EXAM DESC XDXAC^DEXA SCAN AXIAL^RIS [facility] Anatomical Region Laterality Modality C-spine, Hip [...] who have questions please contact the health women's health care nurse practitioner that requested your imaging first. ? Electronically signed by: Rocael Villatoro MD, [facility] ([phone]), at 06/05/2021 12:00 PM Narrative 06/05/2021 12:00 [...] patients who have questions please contactthe health women's health care nurse practitioner that requested your imaging first. Deborah Quiroga APRN IMGerman DEXA ORDERABLES documented in this encounter Visit Diagnoses Not on filedocumented in this encounter Care Teams Crushing Mill Operator Relationship Specialty Start Date End Date Deborah Quiroga APRN PCP - General Family Medicine 03/24/16 02/04/23 documented as of this encounter
--- OUTSIDE RECORDS SUMMARY | 2024-04-04 14:18 | XMS_ITS | Encounter Summary ---
Author Organization Replaced By [facility] Address [facility] [place] [address] Care Team Providers Care Green Plumber Name Role Phone Deborah Quiroga APRN Primary Care Provider [phone] Encounter Details Date Type Department Care Team (Late st Contact Info) Description 02/06/2020 Orders Only [place]ematology [place] [address] Markel Borjas MD [facility] [address] HEMATOLOGY [place] [address] Neutropenia, unspecified type Social History Tobacco Use [...] EDT Office Visit Dermatology at [place] [address] [facility] [place] [phone] Marek Bonilla MD [address], [place] [address] documented as of this encounter Visit Diagnoses Diagnosis Neutropenia, unspecified type documented in this encounter Care Teams Green Plumber Relationship Specialty Start Date End Date Deborah Quiroga APRN PCP - General Family Medicine 03/24/16 02/04/23 documented as of this encounter
--- OUTSIDE RECORDS SUMMARY | 2024-04-04 14:18 | XMS_ITS | Encounter Summary ---
Author Organization [facility] Address [facility] Erika [facility] [place] [address] Care Team Providers Care Supervisor Wall Mirror Department Name Role Phone Deborah Quiroga APRN Primary Care Provider [phone] Reason for Visit * Consultation (Routine) - Closed Specialty Diagnoses / Procedures Referred By Contkrystle t Referred To Contact Rheumatology Diagnoses Positive FRANCISCO (antinuclear antibody) Arthralgia, unspecified joint Sandy Wu APRN [address] [place] [address] [facility] Rheumatology [address] [place] [address] Referral ID Status Reason Start Date Expiration Date V isits Requested Visits Authorized [id number] Closed Consult, Test & Treat PCP Updated and/or Approved 01/01/2022 01/01/2023 6 6 Encounter Details Date Type Department Care Team (Latest Contact Info) Description 01/20/2022 10:00 AM EDT Office [place] [address] Raymond Loredo MD [facility] [place] [address] Rosacea; Raynaud's phenomenon without gangrene; [...] over radiocarpal or ulnocarpal joints. 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 SJC/TJC 0/0. Hips: Full motion, [...] done locally or here at [facility] that the current time is not particularly interested it seems Raymond Loredo MD documented in this encounter Plan of Treatment Upcoming Encounters Date Type Department Care Team (Late st Contact Info) Description 03/01/2025 4:15 PM EDT Office Visit Dermatology at [place] [address] [facility] [place] [address] Marek Bonilla MD [address] [facility] [facility] [address], [address] Katherine [place] [address] Scheduled Referrals Name Type Priority Associated Diagnoses [...] syndrome documented in this encounter Care Teams Supervisor Wall Mirror Department Relationship Specialty Start Date End Date Deborah Quiroga APRN PCP - General Family Medicine 03/24/16 02/04/23 documented as of this encounter
--- OUTSIDE RECORDS SUMMARY | 2024-04-04 14:18 | XMS_ITS | Encounter Summary ---
Author Organization [facility] Address [facility] [place] [address] Care Team Providers Care Drapery Maker Name Role Phone Deborah Quiroga APRN Primary Care Provider [phone] Reason for Visit * Reason Comments Follow-up Encounter Details Date Type Department Care Team (Late st Contact Info) Description 07/03/2022 1:30 PM EST Office Visit Hematology [place] [address] Markel Borjas MD [facility] [address] HEMATOLOGY [place] [address] Consuelo Sommer APRN [facility] [address] HEMATOLOGY [place] [address] Chronic idiopathic neutropenia; Dysuria Social History Tobacco [...] 07/03/2022 1:30 PM EST Hematology Outpatient Clinic [facility] Hematology Outpatient Consult Note CC: [id number] [...] TOUCH PREP, CLOT SECTION, CORE ??BIOPSY); [OSR# [id number], COLLECTED 06/23/2016, 19 SLIDES]: ?1. 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 Extremities: No edema. Labs: Hgb= 11.7 Uvwf=024 ANC= 2.5 Imaging As above - reviewed [...] 4:15 PM EDT Office Visit Dermatology at [place] [address] [place] [address] Marek Bonilla MD [address] [facility], [place] [address] documented as of this encounter Procedures Procedure [...] tract infection, submit a new specimen. (A) [facility] Clean Catch Urine 07/03/2022 2:00 PM EST 07/03/2022 5:55 PM EST Narrative Resulting Agency Comment Spec In Lab Markel Borjas MD MICROBIOLOGY - GEN ERAL ORDERABLES Performing Organization Address [facility] de Phone Number [facility] [place] [address] * (ABNORMAL) Urinalysis Microscopic Exam (07/03/2022 2:00 PM EST) RBC, Urine 2 0 - 4 /HPF [facility] WBC, Urine 14(H) 0 - 5 /HPF [facility] Bacteria, Urine Occasional (A) None /HPF [facility] Squamous Epithelial Cells Raw Data, Urine 12(H) <=4 /HPF [facility] Hyaline Casts, Urine 2 0 - 2 /LPF [facility] Clean Catch Urine 07/03/2022 2:00 PM EST 07/03/2022 2:29 PM EST Narrative Resulting Agency Comment Spec In Lab Markel Borjas MD URINE ORDERABLES Performing Organization Address [facility] de Phone Number [facility] [place] [address] * (ABNORMAL) Urinalysis with reflex Culture (07/03/2022 2:00 PM EST) Glucose, Urine Dipstick Negative Negative mg/dL [facility] Protein, Urine Dipstick 30(A) Negative mg/dL [facility] Bilirubin, Urine Dipstick Negative Negative mg/dL [facility] Comment: Clinical correlation required for positive Urine Bilirubin results as false positive may occur with some drugs and drug related products. If a false positive is suspected a serum total bilirubin should be considered if clinically indicated. Urobilinogen, Urine Dipstick Normal Normal mg/dL [facility] pH, Urn (dipstick) 5.5 5.0 - 8.0 [facility] Blood, Urine Dipstick Negative Negative mg/dL [facility] Ketone, Urine Dipstick Trace(A) Negative mg/dL [facility] Nitrite, Urine Dipstick Negative Negative [facility] Leukocytes, Urine Dipstick Small(A) Negative [facility] Appearance, Urine Dipstick Clear Clear [facility] Specific Thayne Urine Automated 1.022 1.005 - 1.030 [facility] Color, Urine Dipstick Yellow Yellow [facility] Reflex to Culture Yes [facility] Clean Catch Urine 07/03/2022 2:00 PM EST 07/03/2022 2:29 PM EST Narrative Resulting Agency Comment Spec In Lab Markel Borjas MD URINE ORDERABLES [facility] [place] [address] * (ABNORMAL) Comprehensive metabolic panel (non-fasting) (07/03/2022 [...] CHEMISTRY ORDERABL ES [facility] [place] [address] documented in this encounter Visit Diagnoses Diagnosis Chronic idiopathic neutropenia Other neutropenia Dysuria documented in this encounter Care Teams Drapery Maker Relationship Specialty Start Date End Date Deborah Quiroga APRN PCP - General Family Medicine 03/24/16 02/04/23 documented as of this encounter
--- OUTSIDE RECORDS SUMMARY | 2024-04-04 14:18 | XMS_ITS | Encounter Summary ---
[place] [address] Care Team Providers Care Tile Designer Name Role Phone Ashley Quirogan Cornelius ANURAG Primary Care Provider [phone] Reason for Visit * Reason Comments Acrochordon Rosacea Encounter Details Date Type Department Care Team (Late st Contact Info) Description 12/05/2020 3:00 PM EDT Office Visit Dermatology at [address] [address] Marek Bonilla MD [address] [facility], [place] [address] Inflamed acrochordon Social History Tobacco Use Types [...] 4:15 PM EDT Office Visit Dermatology at [place] [address] [place] [address] Marek Bonilla MD [address] [facility] [place] [address] documented as of this encounter Visit Diagnoses Diagnosis Inflamed acrochordon Unspecified hypertrophic and atrophic condition of skin documented in this encounter Care Teams Tile Designer Relationship Specialty Start Date End Date Deborah Quiroga APRN PCP - General Family Medicine 03/24/16 02/04/23 documented as of this encounter
--- OUTSIDE RECORDS SUMMARY | 2024-04-04 14:18 | XMS_ITS | Encounter Summary ---
Author Organization [facility] [place] [address] Care Team Providers Care Narcotics And/Or Vice Detective Name Role Phone Junaid Deborah Shields APRN Primary Care Provider [phone] Encounter Details Date Type Department Care Team (Latest Contact Info) Description 11/09/2022 10:37 AM EDT - 11/09/2022 4:53 PM EDT Hospital Encounter [place] [address] Nitesh Escobedo MD [facility] [place] [address] Aortic valve stenosis, etiology of cardiac valve [...] Center 02/05/2023 2:30 PM Marek Bonilla MD [facility] New Medications to be Picked Up None For questions regarding this document or issues relating to this hospitalization on the Medical Service, please contact your inpatient physician through the [facility] . Issues afterhours and on weekends will be handled by the Hospitalist staff on-call. * Attachments The following attachments cannot be sent through Care Everywhere. * Coronary Angiogram: Post-op (Haitian) * Right Heart Catheterization: Pulmonary Artery Catheterization: Post-op (Haitian) documented in this encounter Medications at Time [...] MD - 11/09/2022 11:20 AM EDT . [facility] Interventional Cardiology Adult Pre-Procedure H&P Update: Cardiac Catheterization Purnima Thacker [id number] 1955 Chief Complaint: BONILLA HPI: Purnima Thacker [...] Marrero MD Interventional Cardiology 11/09/22 11:43 AM [facility] Pager: [phone] documented in this encounter Plan of Treatment Upcoming Encounters Date Type Department Care Team (Late st Contact Info) Description 03/01/2025 4:15 PM EDT Office Visit Dermatology at [place] [address] [facility] [place] [address] Marek Bonilla MD [address], [place] [address] documented as of this encounter Procedures Procedure Name Priority Date/Time Associated Diagnosis Comments CARDIAC CATHETERIZATION Routine 11/10/19 1:05 PM EDT Aortic valve stenosis, etiology of cardiac valve disease unspecified Cath Plmt Left Heart Cath & Arts W/Inj & Angio Img S&I ([id number]) 11/09/2022 11:51 AM EDT Aortic valve stenosis, etiology of cardiac valve disease unspecified EKG 12-LEAD Routine 11/09/2022 11:17 AM EDT Aortic valve stenosis, etiology of cardiac valve disease unspecified documented in this encounter Results * CARDIAC CATHETERIZATION (11/09/2022 1:05 PM EDT) Anatomical Region Laterality Modality Other Narrative 11/09/2022 2:01 PM EDT ?[facility] ? Cardiac Catheterization/Intervention Report ? Patient Name: Purnima Thacker. ? Procedure Date: 11/09/2022 ? A #: [id number] ? Primary Physician: Nitesh Escobedo ? Case #: [id number] ? File Name: [id number] ? Catheterization Order Number: [id number] ? [facility] ? Final Report [place], [place] ? Patient Name: ? Purnima M. Kirstie ? ID#: ?[id number] ? : ?1955 ? Procedure Date: ? [...] (Bezet) 457 ms MUSE SYSTEM Calculated P Wynona 44 degrees MUSE SYSTEM Calculated R Wynona 33 degrees MUSE SYSTEM Calculated T Wynona 30 degrees MUSE SYSTEM INTERPRETATION Sinus rhythm Occasional Premature ventricular complexes Otherwise normal ECG When compared with ECG of 21-SEP-2016 12:26, Premature ventricular complexes are now Present [place] interval has decreased Nonspecific T wave abnormality has replaced inverted T waves in Inferior leads I personally reviewed the tracing and edited the fellows interpretation Confirmed by fellow MD Welsh Hanyuan ([id number]) on 11/09/2022 6:17:28 PM Confirmed by Elsa [...] MD) documented in this encounter Care Teams Narcotics And/Or Vice Detective Relationship Specialty Start Date End Date Deborah Quiroga, DENTAL SERVICES DIRECTOR PCP - General Family Medicine 03/24/16 02/04/23 documented as of this encounter
--- OUTSIDE RECORDS SUMMARY | 2024-04-04 14:18 | XMS_ITS | Encounter Summary ---
[place] [address] Care Team Providers Care Mobile Manager Name Role Phone Deborah Quiroga ANURAG Primary Care Provider [phone] Encounter Details Date Type Department Care Team (Late st Contact Info) Description 06/18/2017 External Results H[place]ology [place] [address] Alexandrea Greenwood RN Neutropenia, unspecified type Social [...] 4:15 PM EDT Office Visit Dermatology at [place] [address] [facility] [address] [place] [address] Marek Bonilla MD [address], [place] [address] documented as of this encounter Procedures Procedure [...] MD CHEMISTRY ORDERABL ES Performing Organization Address City/[facility] Co de Phone Number EXTERNAL LAB * [...] type documented in this encounter Care Teams Mobile Manager Relationship Specialty Start Date End Date Deborah Quiroga APRN PCP - General Family Medicine 03/24/16 02/04/23 documented as of this encounter
--- OUTSIDE RECORDS SUMMARY | 2024-04-04 14:18 | XMS_ITS | Encounter Summary ---
[place] [address] Care Team Providers Care Pest Technician Name Role Phone Deborah Quiroga APRN Primary Care Provider [phone] Encounter Details Date Type Department Care Team (Latest Contact Info) Description 10/14/2016 - 10/14/2016 11:59 PM EDT Hospital Encounter [place] [address] Alirio Esparza MD Pain Discharge Disposition: Home [...] 4:15 PM EDT Office Visit Dermatology at [place] [address] [facility] [place] [address] Marek Bonilla MD [address], [place] [address] documented as of this encounter Procedures Procedure Name Priority Date/Time Associated Diagnosis Comments FILM LIBRARY STORAGE ONLY DX CHEST Routine 10/14/2016 12:00 AM EDT Pain documented in this encounter Results * Film Library- Storage Only DX Chest (10/14/2016 12:00 AM EDT) Narrative [facility] - 10/14/2016 5:16 PM EDT This exam is for storage only and is auto-finalizing. Alirio Esparza MD IMG FILM LIBRARY OR DERABLES [place], [place] documented in this encounter Visit Diagnoses Diagnosis Pain Generalized pain documented in this encounter Care Teams Pest Technician Relationship Specialty Start Date End Date Deborah Quiroga APRN PCP - General Family Medicine 03/24/16 02/04/23 documented as of this encounter
--- OUTSIDE RECORDS SUMMARY | 2024-04-04 14:18 | XMS_ITS | Encounter Summary ---
[place] [address] Care Team Providers Care Pre Sales Technical Consultant Name Role Phone Ashley Quirogazac Shields APRN Primary Care Provider [phone] Reason for Visit * Reason Comments Annual Exam Encounter Details Date Type Department Care Team (Late st Contact Info) Description 01/09/2022 3:15 PM EDT Office Visit Dermatology at [address] [address] Marek Bonilla MD [address] [facility], [address] A DERMATOLOGY [place], [place] [address] Rosacea Social History Tobacco Use Types Packs/Day [...] cutaneous and ocular 2. Previously told by nurse monitoring that she had corneal tears from her [...] refills. We will call this into her [facility] pharmacy in [place] 3. Continue metronidazole 0.75% gel applying every other day after washing as needed. We will give her 45 g with 5 refills. 4. Return to clinic in a year for repeat check CC: Deborah Quiroga APRN documented in this encounter Plan of Treatment Upcoming Encounters Date Type Department Care Team (Late st Contact Info) Description 03/01/2025 4:15 PM EDT Office Visit Dermatology at [place] [address] [facility] [place] [address] Marek Bonilla MD [address] [facility], [place] [address] documented as of this encounter Visit Diagnoses Diagnosis Rosacea documented in this encounter Care Teams Pre Sales Technical Consultant Relationship Specialty Start Date End Date Deborah Quiroga APRN PCP - General Family Medicine 03/24/16 02/04/23 documented as of this encounter
--- OUTSIDE RECORDS SUMMARY | 2024-04-04 14:18 | XMS_ITS | Encounter Summary ---
[place] [address] Care Team Providers Care Stone Repairer Name Role Phone Deborah Quiroga APRN Primary Care Provider [phone] Reason for Referral * Consultation (Routine) - Closed Specialty Diagnoses / Procedures Referred By Contac t Referred To Contact Rheumatology Diagnoses Positive FRANCISCO (antinuclear antibody) Arthralgia, unspecified joint Sandy Wu APRN [address] [place] [address] [facility] [address] [place] [phone] Referral ID Status Reason Start Date Expiration Date V isits Requested Visits Authorized [id number] Closed Consult, Test & Treat PCP Updated and/or Approved 01/01/2022 01/01/2023 6 6 Encounter Details Date Type Department Care Team (Latest Contact Info) Description 01/01/2022 Transcribe Orders eDH Incoming Referrals [phone] Sandy Wu APRN [address] [place], [place] [id number] Positive FRANCISCO (antinuclear antibody); Arthralgia, unspecified joint [...] 4:15 PM EDT Office Visit Dermatology at [place] [address] [facility] [place] [address] Marek Bonilla MD [address], [place] [address] Scheduled Referrals Name Type Priority Associated Diagnoses Orde r Schedule Referral to Rheumatology Outpatient Referral Routine Positive FRANCISCO (antinuclear antibody) Arthralgia, unspecified joint Ordered: 01/01/2022 documented as of this encounter Visit Diagnoses Diagnosis Positive FRANCISCO (antinuclear antibody) Other and unspecified nonspecific immunological findings Arthralgia, unspecified joint documented in this encounter Care Teams Stone Repairer Relationship Specialty Start Date End Date Deborah Quiroga APRN PCP - General Family Medicine 03/24/16 02/04/23 documented as of this encounter
--- OUTSIDE RECORDS SUMMARY | 2024-04-04 14:18 | XMS_ITS | Encounter Summary ---
[place] [address] Care Team Providers Care Custom Shoe Designer And Maker Name Role Phone Deborah Quiroga APRN Primary Care Provider +1- [phone] Encounter Details Date Type Department Care Team [...] PM EDT Office Visit Dermatology at [address] [place] [address] Marek Bonilla MD [address], [place] [address] documented as of this encounter Visit Diagnoses Not on filedocumented in this encounter Care Teams Custom Shoe Designer And Maker Relationship Specialty Start Date End Date Deborah Quiroga APRN PCP - General Family Medicine 03/24/16 02/04/23 documented as of this encounter
--- OUTSIDE RECORDS SUMMARY | 2024-04-04 14:18 | XMS_ITS | Encounter Summary ---
[place] [address] Care Team Providers Care Medical Claims Processor Name Role Phone Deborah Quiroga APRN Primary Care Provider +1 [phone] Encounter Details Date Type Department Care Team (Late st Contact Info) Description 03/04/2020 External Results Hematology [place] [address] Theroux, Bhumi Cornelius Social History Tobacco Use [...] 4:15 PM EDT Office Visit Dermatology at [place] [address] [place] [phone] Marek Bonilla MD [address], [place] [address] documented as of this encounter Procedures Procedure [...] Provider CHEMISTRY ORDERAB LES Performing Organization Address City/[facility]/ZIP Co de Phone Number EXTERNAL LAB [...] Provider CHEMISTRY ORDERAB LES Performing Organization Address City/[facility]/ZIP Co de Phone Number EXTERNAL LAB * (ABNORMAL) CBC (with Diff) (02/28/2020 7:45 AM EDT) White Blood Cell 3.51(EXTER NAL/ABN) 4.4 - 10.8 EXTERNAL LAB Hemoglobin 12.4 11.2 - 15.7 EXTERNAL LAB Hematocrit 36.3 36.0 - 46.0 EXTERNAL LAB Platelet 182 130 - 400 EXTERNAL LAB Neutrophil Absolute (ANC) - Automated 2.24 1.2 - 6.7 EXTERNAL LAB Lymph Absolute Manual 0.95(EXTER NAL/ABN) 1.2 - 3.4 EXTERNAL LAB Blood specimen (specimen) 02/28/2020 7:45 AM EDT Historical Provider HEMATOLOGY ORDERA BLES EXTERNAL LAB documented in this encounter Visit Diagnoses Not on filedocumented in this encounter Care Teams Medical Claims Processor Relationship Specialty Start Date End Date eDborah Quiroga, CORRECTIVE THERAPY AIDE PCP - General Family Medicine 03/24/16 02/04/23 documented as of this encounter
--- OUTSIDE RECORDS SUMMARY | 2024-04-04 14:18 | XMS_ITS | Encounter Summary ---
[place] [address] Care Team Providers Care Race And Sports Book Writer Name Role Phone Deborah Quiroga APRN Primary Care Provider +1- [phone] Encounter Details Date Type Department Care Team [...] PM EDT Office Visit Dermatology at [address] [place] [address] Marek Bonilla MD [address], [place] [address] documented as of this encounter Visit Diagnoses Not on filedocumented in this encounter Care Teams Race And Sports Book Writer Relationship Specialty Start Date End Date Deborah Quiroga APRN PCP - General Family Medicine 03/24/16 02/04/23 documented as of this encounter
--- OUTSIDE RECORDS SUMMARY | 2024-04-04 14:18 | XMS_ITS | Encounter Summary ---
[place] [address] Care Team Providers Care Bb Shot Packer Name Role Phone Ashley Quirogan Cornelius ANURAG Primary Care Provider +1 [phone] Reason for Visit * Reason Onset Date Comments Medical Care Coordination 07/27/2017 Encounter Details Date Type Department Care Team (Late st Contact Info) Description 07/27/2017 Telephone Hematology [place] [phone] Alexandrea Greenwood RN Medical Care Coordination Social [...] 07/27/2017 12:25 PM EST Message received from marketing secretary: Injection/Infusion Referral Call placed to [facility] @ [phone] Spoke w/ CUT PRESS OPERATOR Services to be provided for pt are: CBC/CMP DONE Q6 MONTHS X2 STARTING NOVEMBER 2017 TECH confirmed they would provide services to pt - I CALLED PT, LM. Pt orders faxed to [phone] documented in this encounter Plan of Treatment Upcoming Encounters Date Type Department Care Team (Late st Contact Info) Description 03/01/2025 4:15 PM EDT Office Visit Dermatology at [place] [address] [place] [phone] Marek Bonilla MD [address], [place] [address] documented as of this encounter Visit Diagnoses Not on filedocumented in this encounter Care Teams Bb Shot Packer Relationship Specialty Start Date End Date Deborah Quiroga APRN PCP - General Family Medicine 03/24/16 02/04/23 documented as of this encounter
--- OUTSIDE RECORDS SUMMARY | 2024-04-04 14:18 | XMS_ITS | Encounter Summary ---
[place] [address] Care Team Providers Care Die Cutter Name Role Phone Deborah Quiroga APRN Primary Care Provider +1- [phone] Encounter Details Date Type Department Care Team (Late st Contact Info) Description 06/05/2021 Interpretation Only [address] [phone] Deborah Quiroga DISPENSING OPERATOR [address] [id number] Social History Tobacco Use Types Packs/Day Years [...] PM EDT Office Visit Dermatology at [place] [address] [place] [place] [address] Marek Bonilla MD [address] [facility], [place] [address] documented as of this encounter Procedures Procedure Name Priority Date/Time Associated Diagnosis Comments MAMMO SCREENING CAD AND CATRACHITO BILATERAL Routine 06/05/2021 11:42 AM EDT documented in this encounter Results * Mammo Screening Cad and Catrachito Bilateral (06/05/2021 11:42 AM EDT) PT CLASS O DH RAD ADMITDTTM DH RAD PT DH RAD INFO [id number]^EVERET T^DEBORAH^E DH RAD EXAM DESC MADDSCTO^BREAST SCREEN [...] questions please contact the health animal care attendant that requested your imaging first. [...] have questions please contactthe health animal care attendant that requested your imaging first. Deborah Quiroga APRN IMG MAMMO ORDERABLE S documented in this encounter Visit Diagnoses Not on filedocumented in this encounter Care Teams Die Cutter Relationship Specialty Start Date End Date Deborah Quiroga APRN PCP - General Family Medicine 03/24/16 02/04/23 documented as of this encounter
--- OUTSIDE RECORDS SUMMARY | 2024-04-04 14:18 | XMS_ITS | Encounter Summary ---
[place] [address] Care Team Providers Care Assistant Tennis Coach Name Role Phone Deborah Quiroga APRN Primary Care Provider +1- [phone] Encounter Details Date Type Department Care Team (Late st Contact Info) Description 01/09/2022 Refill Dermatology at [address] [phone] Lupe Connor RN Social History Tobacco Use [...] PM EDT Office Visit Dermatology at [address] [phone] Marek Bonilla MD [address] [facility] [place] [address] documented as of this encounter Visit Diagnoses Not on filedocumented in this encounter Care Teams Assistant Tennis Coach Relationship Specialty Start Date End Date Deborah Quiroga APRN PCP - General Family Medicine 03/24/16 02/04/23 documented as of this encounter
--- OUTSIDE RECORDS SUMMARY | 2024-04-04 14:19 | XMS_ITS | Encounter Summary ---
[place] [address] Care Team Providers Care Real Estate Investment Analyst Name Role Phone Deborah Quiroga APRN Primary Care Provider +1 [phone] Encounter Details Date Type Department Care Team (Late st Contact Info) Description 09/17/2016 External Results Hematology [place] [address] Alexandrea Greenwood RN Neutropenia, unspecified type Social [...] 4:15 PM EDT Office Visit Dermatology at [place] [address] [place] [phone] Marek Bonilla MD [address], [place] [address] documented as of this encounter Procedures Procedure [...] Platelet 230 130 - 400 EXTERNAL LAB Neutrophil Absolute (ANC) - Automated 0.54(EXTER NAL/ABN) 1.2 - 3.4 EXTERNAL LAB Blood specimen (specimen) 09/16/2016 12:06 PM EST Markel Borjas MD HEMATOLOGY ORDERAB LES EXTERNAL LAB documented in this encounter Visit Diagnoses Diagnosis Neutropenia, unspecified type documented in this encounter Care Teams Real Estate Investment Analyst Relationship Specialty Start Date End Date Deborah Quiroga, ASSISTANT FARM OPERATIONS MANAGER PCP - General Family Medicine 03/24/16 02/04/23 documented as of this encounter
--- OUTSIDE RECORDS SUMMARY | 2024-04-04 14:19 | XMS_ITS | Encounter Summary ---
Author Organization [facility] [place] [address] Care Team Providers Care Hot Dog Vender Name Role Phone Ashley Quirogan Cornelius ANURAG Primary Care Provider [phone] Reason for Referral * Consultation (Routine) - Specialty Diagnoses / Procedures Referred By Contact Referred To Contact Cardiac Rehabilitation Diagnoses S/P AVR Alirio Esparza MD [facility] [place] [address] Cardiac Rehab, [address] [place] [address] Referral ID Status Reason Start Date Expiration Date V isits Requested Visits Authorized [id number] Consult, Test & Treat 09/25/2016 03/24/2017 36 36 Reason for Visit * Auth/Cert Specialty Diagnoses / Procedures Referred By Contkrystle t Referred To Contact Diagnoses Aortic stenosis Procedures PRO REPLACE AORT VALV, PROSTH VALV @REPLACE AORTIC VALVE, OPEN, W\CPB, W\PROSTHETIC VALVE (WRVU 41.32) Referral ID Status Reason Start Date Expiration Date Visits Re quested Visits Authorized [id number] 1 1 Encounter Details Date Type Department Care Team (Latest Contact Info) Description 09/21/2016 6:08 AM EST - 09/25/2016 4:33 PM EST Hospital Encounter Inter[place] [id number] Alirio Esparza MD Aortic valve stenosis, unspecified [...] in 1-2 weeks. Patient to follow-up with Media Consultant Outside Sales, Dr. Antelmo Burrell, in two weeks. Patient to follow-up with Cardiac Surgery, Dr. Alirio Esparza, to be scheduled for before 10/19/2016, with CXR, EKG, and Echo. Inpatient Provider Contact Information: [facility] Section of Cardiac Surgery [facility] [place] [address] FAX [phone] Discharge Diagnoses (Hospital Problems) Primary Diagnoses: Secondary [...] 41.32) performed by Alirio Esparza MD at [facility] MAIN OR ??? Pro aortoplas for supravalv sten N/A 09/21/2016 @AORTOPLASTY FOR SUPRAVALVULAR STENOSIS (WRVU 29.33) performed by Alirio Esparza MD at [facility] MAIN OR Prior To Admission [...] Purnima Thacker was admitted to [facility] on 09/21/2016 via the Same Day [...] Alirio Esparza and/or the Cardiac Surgery Physician Help Desk Supervisor Team may be reached at . Antibiotic prophylaxis: You will need to take antibiotics prior to many invasive tests and treatments, such as dental cleaning, which should be done every 6 months. Your primary care physician or your dentist can prescribe this medication. Please refer to the card with the [employer] [place] [employer] Guidelines for more information. You have been provided with 3 copies of this card. Keep one for your self. Give one to your primary care physician and one to your dentist. Please refer to the [employer] [place] Guidelines for more information. Good [...] Dr. Alirio Jones. You may use a [place] Track or treadmill but avoid any pulling [...] friends, go to a movie, go to voodoo, etc. Heavy activities: No hunting, skiing, jogging, [...] should resume a low fat, low cholesterol, [place] [employer] Diet. Driving: No driving until [...] AM Markel Borjas MD [facility] [phone] Future Orders Complete By Expires Echocardiogram Transthoracic([place]) [[id number] Custom] 10/18/2016 (Approximate) 09/18/2017 Process Instructions: If the Echocardiogram is to be PERFORMED in a location other than [place]--STOP and order [id number], Echocardiogram South/External. Scheduling Instructions: Questions: Is a Bubble Study requested?: No Does the patient have Congenital Heart Disease?: No Does patient require sedation?: None GA rationale: Should this service be billed to the research sponsor?: EKG 12 Lead [EKG1 Custom] 10/18/2016 (Approximate) 09/25/2017 Process Instructions: Scheduling Instructions: Questions: Which location will this be performed?: [place] Is a rhythm strip needed?: No If EKG Reason is Pre-op Evaluation, indicate diagnosis for surgery.: Should this service be billed to the research sponsor?: XR Chest PA & Lateral (Generic) [[id number] Custom] 10/18/2016 (Approximate) 09/25/2017 Process Instructions: Scheduling Instructions: Questions: Where will study be performed?: [facility]- Radiology Portable exam?: No Reason for exam and clinical history: s/p AVReplacement, patch annuloplasty 1 month f/u Other pertinent information: Stat read required?: Date of injury if applicable: Requested Time: Referral to Cardiac Rehab [[id number] Custom] As directed Process Instructions: If no progress note charted, please enter Clinical details in comments. Scheduling Instructions: Questions: My question or request is: s/p AVR. Cardiac rehab at [facility] Referral to Home Health - at DISCHARGE [FJK8716 CPT(R)] As directed Process Instructions: Scheduling Instructions: Comments: DOCUMENTATION FOR VNA SERVICES (INCLUDING THOSE PATIENTS WITH MEDICARE COVERAGE REQUIRING HOME VNA SERVICES AND/OR HOSPICE SERVICES) PATIENT'S LOCATION: Purnima Magalie Kirstie [address] [place] [phone] (home) No relevant phone numbers on file. Oral Surgeon's Name: self In discussion with the attending physician, it is certified that this patient is under their care and that they, or a Nurse Practitioner, or Physician Help Desk Supervisor who is working directly with them, hada [...] for services as follows: HOME HEALTH AGENCY: [facility] PHONE: [phone] FAX: [phone] RN orders: Cardiopulmonary assessment, incisional assessment, assess [...] issues please call the Cardiac SurgeryOffice at [phone] FOR MEDICARE ONLY: In discussion with the [...] Signed: Crispin Aranda PA-C 09/25/2016 [facility] Section of Cardiac Surgery [facility] [place] [address] FAX [phone] Date: 09/25/2016 CC: ANURAG Alford Caryn E, APRN [address] [place] [address] documented in this encounter Discharge Instructions * [...] Alirio Esparza and/or the Cardiac Surgery Physician Help Desk Supervisor Team may be reached at . Antibiotic prophylaxis: You will need to take antibiotics prior to many invasive tests and treatments, such as dental cleaning, which should be done every 6 months. Your primary care physician or your dentist can prescribe this medication. Please refer to the card with the [employer] [place] Guidelines for more information. You have been provided with 3 copies of this card. Keep one for your self. Give one to your primary care physician and one to your dentist. Please refer to the [place] [employer] Guidelines for more information. Good [...] Dr. Alirio Jones. You may use a [place] Track or treadmill but avoid any pulling [...] friends, go to a movie, go to voodoo, etc. Heavy activities: No hunting, skiing, jogging, [...] should resume a low fat, low cholesterol, [place] Diet. Driving: No driving until [...] PM EST Cardiac Surgery Progress Note: ID: [id number] S/p AVR, patch aortoplasty POD#2. PMH of [...] Gas) No results found for: PHART, PO2ART, LZX6THT Assessment/Plan: TPW out this am. (+) BM. [...] Signed: Crispin Aranda PA-C 09/24/2016 Team pager: [phone]; [phone] after 5pm [facility] Section of Cardiac Surgery * Leonor Henson, CONTROLS DESIGN ENGINEER - 09/23/2016 10:48 AM EST Cardiac Surgery Progress Note: ID: [id number] s/p AVR, patch aortoplasty POD#2. PMH of [...] Gas) No results found for: PHART, PO2ART, ROI4AIF Assessment/Plan: s/p AVR, patch aortoplasty POD#2. PMH of Neutropenia, HLD, HTN, Depression, obesity, . Transferred from [facility] yesterday and doing well. Pathway. Will [...] rounds. Signed: Leonor Henson APRN [facility] Section of Cardiac Surgery Date: 09/23/2016 * Nico Palacios PA - 09/22/2016 9:56 AM EST Cardiac Surgery Progress Note: ID: [id number] s/p AVR, patch aortoplasty POD#1. PMH of [...] NT, ND, soft. Ext: Moves all extremities. [place], well perfused. Incisions: C/D/I Tubes/Lines/Drains: PIV, richi, [...] on rounds. Signed: EKATERINA KIM [facility] Section of Cardiac Surgery Date: 09/22/2016 [...] left pleural effusion. T/L/D Al ETT CVL [employer] CT Pacing wires ASSESSMENT, MANAGEMENT, and DECISION [...] with outpatient services Lalitha Cohen SPTA Pager: [phone] Inpatient Physical Therapy Patient status, treatment interventions, and goals discussed with student. I am in agreement with all details and associated flowsheet rows as documented and was present for all aspects of the patient treatment session. Nerykatrina Jaramillo, [facility] Pager [phone] Problem: Acute Rehab Services Goal & Intervention Plan Goal: Bed Mobility Goal Stand Alone Therapy Goal Outcome: Ongoing (Interventions Implemented as Appropriate) 09/22/16 16109/25/16 09 Bed Mobility Goal Bed Mobility Goal, Time to Achieve 4 days -- Bed Mobility Goal, Activity Type scoot/bridge;supine to sit/sit to supine -- Bed Mobility Goal, [place] Level independent -- Bed Mobility Goal, Additional [...] 4 days -- Gait Training Goal, [place] Level independent -- Gait Training Goal, Distance [...] assist, home with home health Lalitha Cohen [facility] Pager: [phone] Inpatient Physical Therapy Patient status, treatment interventions, and goals discussed with student. I am in agreement with all details and associated flowsheet rows as documented and was present for all aspects of the patient treatment session. Nery Jaramillo, [facility] Pager [phone] Problem: Acute Rehab Services Goal & Intervention Plan Goal: Bed Mobility Goal Stand Alone Therapy Goal Outcome: Ongoing (Interventions Implemented as Appropriate) 09/22/16 16109/23/16 1412 Bed Mobility Goal Bed Mobility Goal, Time to Achieve 4 days -- Bed Mobility Goal, Activity Type scoot/bridge;supine to sit/sit to supine -- Bed Mobility Goal, [place] Level independent -- Bed Mobility Goal, Additional [...] 4 days -- Gait Training Goal, [place] Level independent -- Gait Training Goal, Distance [...] days -- Transfer Training Goal, Activity Type uwt-lm-ewbnh/fkluu-bb-qam;fzl-id-qdoig/qxmfe-vv-urd -- Transfer Train Goal, [place] Level independent -- Transfer Training Goal, Additional Goal abides sternal precautions -- Transfer Training Goal, Outcome -- goal met * Consult Note - Jana Crenshaw RN - 09/23/2016 9:41 AM EST [facility] CARDIAC REH[facility]ILITATION [...] Another Service: (cardiac rehab) NICOLE HERNANDEZ, PT Pager:[phone] Inpatient Physical Therapy Problem: Acute Rehab Services Goal & Intervention Plan Goal: Bed Mobility Goal Stand Alone Therapy Goal Outcome: Ongoing (Interventions Implemented as Appropriate) 09/22/16 1611 Bed Mobility Goal Bed Mobility Goal, Time to Achieve 4 days Bed Mobility Goal, Activity Type scoot/bridge;supine to sit/sit to supine Bed Mobility Goal, [place] Level independent Bed Mobility Goal, Additional Goal able to abide sternal precautions during transfers Goal: Gait Training Goal Stand Alone Therapy Goal Outcome: Ongoing (Interventions Implemented as Appropriate) 09/22/16 1611 Gait Training Goal Gait Training Goal, Date Established 09/22/16 Gait Training Goal, Time to Achieve 4 days Gait Training Goal, [place] Level independent Gait Training Goal, Distance to Achieve ascend and descends 2 steps independently Goal: Goal Transfer Training Stand Alone Therapy Goal Outcome: Ongoing (Interventions Implemented as Appropriate) 09/22/16 1611 Goal Transfer Training Transfer Training Goal, Time to Achieve 4 days Transfer Training Goal, Activity Type zvn-an-jbgbh/abxzp-sq-ikq;myk-wp-atqqy/nlmhv-qa-yrd Transfer Train Goal, [place] Level independent Transfer Training Goal, Additional Goal [...] of completing AD's at home, chooses her litfff-oe-nkz, Martha Thacker (home) for her [facility], 2nd choice in friend, Nitesh Leroy [place], [place] Current Coping/Education/Information Needs: patient sitting up [...] who live close by, [place], and her hecalt-qh-quk Martha Thacker who she has chosen to be her DPOAH. Also has a friend Nitesh Leroy who lives in [place], [place], also her DPOAH choice. Behavioral Health History: none on file in [facility] Substance Use/Abuse: none on file in [facility] Other Pertinent/Service Specific Information: none Health/Prescription Coverage: Primary Insurance: [employer] Secondary Insurance: none Prescription Coverage: yes, per patient no issues Preferred Pharmacy: ?? Other: none Primary Care Provider: Deborah Quiroga, CONTROLS DESIGN ENGINEER [phone] Patient/Caregiver Goals of Treatment: per medical team recommendations at discharge for CT surgery Potential Needs for Transition of Care: Rehab/SNF: TBD Home Health: TBD DME: no Dialysis: no Community Resources: non3 Transportation: ride home with a friend Other: none Anticipated Barriers to Discharge/Special Considerations: none anticipated at this time Plan: patient will need VNA services at discharge. The patient/claims service representative has been provided a list of Home Health Agencies/DME vendors which servetheir preferred geographic area. A letter describing our affiliations was reviewed with them and they were educated about their right to choose where referrals are placed. Patient requests referral to: [facility] [employer]. PHONE: [phone] FAX: [phone] Expected date of discharge: Fri/Sat? CM called VNA to confirm referral, talked with VALDO Bunn/intake who stated she was familiar w/patient & would monitor her progress through curaspan. Referral routed to the Cloth Examiner Hand for matching with agency/vendor and to provide any required information. A member of the Care Management team will continue to monitor progress, follow for continuity of care and assist with transition of care planning. Amanda Moreno RN Pager: [phone] * Op Note - Alirio Esparza MD - 09/21/2016 12:53 PM EST 09/23/2016 Purnima Thacker [id number] Preoperative Diagnosis: Symptomatic aortic stenosis Postoperative Diagnosis: Symptomatic aortic stenosis Procedure: Aortic valve replacement: Bovine Pericardial 25 mm Surgeon: Alirio Esparza M.D. Help Desk Supervisor: Philip BALL Anesthesia: General endotracheal anesthesia Drains: [...] Operative Note Patient Name: Purnima Thacker : [id number] MR#: [id number] Case Date: 09/21/2016 Surgeon: Surgeon(s) and Role: * Alirio Espazra MD - Primary * Nico Palacios PA - Physician Help Desk Supervisor Preoperative diagnosis: Postoperative diagnosis: Procedure(s) (LRB): @REPLACE [...] 4:15 PM EDT Office Visit D[place]ology at [place] [address] [place] [address] Marek Bonilla MD [address] [place] [address] Scheduled Orders Name Type Priority Associated Diagnoses [...] IMPLANTABLE DEVICES SCAN 09/26/2016 12:00 AM EST SPORTS RECRUITER SCAN 09/26/2016 12:00 AM EST POTASSIUM Routine [...] SCAN EXT O RDR/RSLT * SCAN DOC: SPORTS RECRUITER (09/26/2016 12:00 AM EST) Anatomical Region Laterality Modality Other Narrative 09/26/2016 12:00 AM EST Ordered by an unspecified provider. Scanning Provider MEDIA MGR SCAN EXT O RDR/RSLT * Potassium (09/25/2016 4:32 AM EST) Pathologist [facility] Potassium 4.4 3.5 - 5.0 mmol/L [facility]TH [...] CHEMISTRY ORDERABLE S [facility] [place] [address] * (ABNORMAL) Differential, Automated (09/24/2016 9:56 AM EST) [facility] Neutrophil % 76.8 % [facility] Neutrophil Absolute 7.79(H) 1.70 - 6.10 x10(3)/mc L [facility] Lymph % 11.1 % [facility] Lymphocytes Abs 1.1 0.9 - 3.2 x10(3)/mc L [facility] Monocyte % 8.5 % [facility] Monocyte Abs 0.9 0.3 - 0.9 x10(3)/mc L [facility] Eos % 0.5 % [facility] Eosinophils Abs 0.0 0.0 - 0.4 x10(3)/mc L [facility] Basophil % 0.2 % [facility] Baso Absolute 0.0 0.0 - 0.1 x10(3)/mc L [facility] Immature Gran % 2.90 % [facility] Comment: Immature granulocytes(IG's)percentage and absolute count will include metamyelocytes, myelocytes, and promyelocytes. Blood smears from CBCs yielding IG's will be scanned manually for concordance. If this scan disagrees with the automated IG or if promyelocytes are noted, a manual differential will be performed. Immature Gran Absolute 0.29(H) 0.00 - 0.04 x10(3)/mc L [facility] Blood specimen (specimen) 09/24/2016 9:56 AM EST 09/24/2016 10:04 AM EST Narrative Resulting Agency Comment Spec In Lab Alirio Esparza MD HEMATOLOGY ORDERABL ES [facility] [place] [address] * (ABNORMAL) Hemogram (09/24/2016 9:56 AM EST) White Blood Cell 10.1(H) 4.0 - 9.5 x10(3)/mc L [facility] Red Blood Cell 2.87(L) 4.00 - 5.21 x10(6)/mc L [facility] Hemoglobin 9.4(L) 11.7 - 15.5 gm/dL [facility] Hematocrit 28.3(L) 35.7 - 45.8 % [facility] Mean Cell Volume 98.6(H) 82.6 - 94.4 fL [facility] Mean Cell Hemoglobin 32.8(H) 27.1 - 32.0 pg [facility] Mean Cell Hemoglobin Concentration 33.2 31.7 - 35.0 gm/dL [facility] Platelet 141(L) 145 - 357 x10(3)/mc L [facility] RDW Standard Deviation 45.0 37.0 - 46.0 fL [facility] RDW coefficient of variation 12.6 11.5 - 14.1 % [facility] Mean Platelet Volume 9.4 7.6 - 12.9 fL [facility] NRBC% auto 1.1 % [facility] NRBC Absolute 0.110(H) 0.000 - 0.000 x10(3)/mc L [facility] Blood specimen (specimen) 09/24/2016 9:56 AM EST 09/24/2016 10:04 AM EST Narrative Resulting Agency Comment Spec In Lab Alirio Esparza MD HEMATOLOGY ORDERABL ES [facility] [place] [address] * (ABNORMAL) Basic Metabolic Panel (non-fasting) (09/24/2016 9:56 AM EST) Glucose 111 65 - 199 mg/dL [facility] Comment:Diabetes: >=200 mg/d L plus symptoms Blood Urea Nitrogen 23(H) 8 - 18 mg/dL [facility] Comment:result rechecked-ART Creatinine 0.89 0.70 - 1.20 mg/dL [facility] Comment: Please note that the pediatric reference intervals supplied above were not validated at [facility]. Results from pediatric patients should be interpreted in conjunction to the patient's age, height and muscle mass. Sodium 138 135 - 145 mmol/L [facility] [...] questions. Chloride 98 98 - 107 mmol/L [facility] Carbon Dioxide 26 22 - 31 mmol/L [facility] Anion Gap 14 5 - 15 mmol/L [facility] Calcium 9.1 8.5 - 10.5 mg/dL [facility] Est Glomerular Filtration Rate >60 >=60 [facility] Comment: [...] the following links into your internet browser. http://[employer] (SAM)/DHnkdep http://[employer])/DHMCnkf Blood specimen (specimen) 09/24/2016 9:56 AM EST 09/24/2016 10:04 AM EST Narrative Resulting Agency Comment Spec In Lab Alirio Esparza MD CHEMISTRY ORDERABLE S [facility] [place] [address] * XR Chest PA & Lateral (Generic) [...] EST) Potassium 4.5 3.5 - 5.0 mmol/L [facility] [...] MD CHEMISTRY ORDERABLE S Performing Organization Address [facility] Co de Phone Number [facility] [place] [address] * POCT Glucose (09/22/2016 8:17 AM EST) Glucose, POC 131 65 - 199 mg/dL [facility] Comment: Supplemental ranges: <140 mg/dL before meals <180 mg/dL all other times of the day Blood specimen (specimen) 09/22/2016 8:17 AM EST 09/22/2016 8:17 AM EST Alirio Esparza MD POINT OF CARE TEST ORDERABLES Performing Organization Address City/[facility]/ZIP Co de Phone Number [facility] [place] [address] * POCT Glucose (09/22/2016 4:01 AM EST) Glucose, POC 135 65 - 199 mg/dL [facility] Comment: Supplemental ranges: <140 mg/dL before meals <180 mg/dL all other times of the day Blood specimen (specimen) 09/22/2016 4:01 AM EST 09/22/2016 4:01 AM EST Alirio Esparza MD POINT OF CARE TEST ORDERABLES [facility] [place] [address] * Scan, Peripheral Blood (09/22/2016 4:00 AM EST) Plat estimate Normal [facility] RBC Morphology Abnormal [facility] Macrocyte 1-5 /HPF [facility] Plat, Giant Less than 1 /HPF [facility] Blood specimen (specimen) 09/22/2016 4:00 AM EST 09/22/2016 4:34 AM EST Narrative Resulting Agency Comment Spec In Lab Alirio Esparza MD HEMATOLOGY ORDERABL ES Performing Organization Address [facility] Co de Phone Number [facility] [place] [address] * Electrolytes panel (09/22/2016 4:00 AM EST) Pathologist [facility] Sodium 145 135 - 145 mmol/L [facility] Potassium 4.4 3.5 - 5.0 mmol/L [facility] Comment: Please note: ??Patients with WBC >100,000 may have falsely elevated Potassium levels. ??For accurate Potassium quantification in these patients send serum separator tube (gold top) for subsequent determinations. ??Contact the Clinical Chemistry Laboratory if there are any questions. Chloride 107 98 - 107 mmol/L [facility] Carbon Dioxide 24 22 - 31 mmol/L [facility] Anion Gap 14 5 - 15 mmol/L [facility] Blood specimen (specimen) Venous Draw / Unknown 09/22/2016 4:00 AM EST 09/22/2016 4:34 AM EST Narrative Resulting Agency Comment Spec In Lab Alirio Esparza MD CHEMISTRY ORDERABLE S Performing Organization Address [facility] Co de Phone Number [facility] [place] [address] * (ABNORMAL) Differential, Automated (09/22/2016 4:00 AM EST) Pathologist [facility] Neutrophil % 70.9 % [facility] Neutrophil Absolute 5.33 1.70 - 6.10 x10(3)/[facility] Lymph % 9.1 % [facility] Lymphocytes Abs 0.7(L) 0.9 - 3.2 x10(3)/[facility] Monocyte % 18.0 % [facility] Monocyte Abs 1.4(H) 0.3 - 0.9 x10(3)/[facility] Eos % 0.0 % [facility] Eosinophils Abs 0.0 0.0 - 0.4 x10(3)/[facility] Basophil % 0.1 % [facility] Baso Absolute 0.0 0.0 - 0.1 x10(3)/[facility] Immature Gran % 1.90 % [facility] Comment: Immature granulocytes(IG's)percentage and absolute count will include metamyelocytes, myelocytes, and promyelocytes. Blood smears from CBCs yielding IG's will be scanned manually for concordance. If this scan disagrees with the automated IG or if promyelocytes are noted, a manual differential will be performed. Immature Gran Absolute 0.14(H) 0.00 - 0.04 x10(3)/[facility] Blood specimen (specimen) 09/22/2016 4:00 AM EST 09/22/2016 4:34 AM EST Narrative Resulting Agency Comment Spec In Lab Aliroi Esparza MD HEMATOLOGY ORDERABL ES [facility] [place] [address] * (ABNORMAL) Hemogram (09/22/2016 4:00 AM EST) White Blood Cell 7.5 4.0 - 9.5 x10(3)/[facility] Red Blood Cell 2.93(L) 4.00 - 5.21 x10(6)/[facility] Hemoglobin 9.2(L) 11.7 - 15.5 gm/dL [facility] Hematocrit 28.0(L) 35.7 - 45.8 % [facility] Mean Cell Volume 95.6(H) 82.6 - 94.4 fL [facility] [facility] Mean Cell Hemoglobin 31.4 27.1 - 32.0 pg [facility] Mean Cell Hemoglobin Concentration 32.9 31.7 - 35.0 gm/dL [facility] Platelet 161 145 - 357 x10(3)/mc L [facility] RDW Standard Deviation 44.0 37.0 - 46.0 fL [facility] RDW coefficient of variation 12.6 11.5 - 14.1 % [facility] Mean Platelet Volume 9.3 7.6 - 12.9 fL [facility] NRBC% auto 0.3 % [facility] NRBC Absolute 0.020(H) 0.000 - 0.000 x10(3)/mc L [facility] Blood specimen (specimen) 09/22/2016 4:00 AM EST 09/22/2016 4:34 AM EST Narrative Resulting Agency Comment Spec In Lab Alirio Esparza MD HEMATOLOGY ORDERABL ES [facility] [place] [address] * (ABNORMAL) Cardiac Enzymes (09/22/2016 4:00 AM EST) Troponin-T 0.13(H) <=0.03 ng/mL [facility] Comment: 0.03 ng/mL: Represents the 99th percentile upper reference limit for normals. >0.03 ng/mL: Elevated cardiac troponin T level indicative of myocardial damage. Diagnosis of acute, evolving or recent [place] requires a typical rise and gradual fall [...] consensus document of the Joint Society of Cardiology/[place] [employer] Committee for the redefinition of myocardial infarction. ??Journal of the [place] [employer] 2000; 36: 959-969] Creatine Kinase 338(H) 0 - 160 unit/L [facility] Blood specimen (specimen) 09/22/2016 4:00 AM EST 09/22/2016 4:34 AM EST Narrative Resulting Agency Comment Spec In Lab Alirio Esparza MD CHEMISTRY ORDERABLE S Performing Organization Address City/State/[facility] Co de Phone Number [facility] [place] [address] * (ABNORMAL) Glucose, fasting (09/22/2016 4:00 AM EST) Glucose Fasting 137(H) 65 - 99 mg/dL [facility] Comment: ?Fasting* Glucose Interpretive Criteria [...] of Diabetes Mellitus, Position Statement from the [place] [employer]. ??Diabetes Care, Volume 33, Supplement 1, Aug 2009 Blood specimen (specimen) 09/22/2016 4:00 AM EST 09/22/2016 4:34 AM EST Narrative Resulting Agency Comment Spec In Lab Alirio Esparza MD CHEMISTRY ORDERABLE S Performing Organization Address City/[facility]/ZIP Co de Phone Number [facility] [place] [address] * (ABNORMAL) Creatinine (09/22/2016 4:00 AM EST) Creatinine 0.69(L) 0.70 - 1.20 mg/dL [facility] Comment: Please note that the pediatric reference intervals supplied above were not validated at [facility]. Results from pediatric patients should be interpreted in conjunction to the patient's age, height and muscle mass. Est Glomerular Filtration Rate >60 >=60 [facility] Comment: [...] the following links into your internet browser. [email or web address])/DHnkdep http://[employer])/DHMCnkf Blood specimen (specimen) 09/22/2016 4:00 AM EST 09/22/2016 4:34 AM EST Narrative Resulting Agency Comment Spec In Lab Alirio Esparza MD CHEMISTRY ORDERABLE S Performing Organization Address [facility]/ZIP Co de Phone Number [facility] [place] [address] * BUN (09/22/2016 4:00 AM EST) Blood Urea Nitrogen 10 8 - 18 mg/dL [facility] Blood specimen (specimen) 09/22/2016 4:00 AM EST 09/22/2016 4:34 AM EST Narrative Resulting Agency Comment Spec In Lab Alirio Esparza MD CHEMISTRY ORDERABLE S Performing Organization Address City/[facility]/ZIP Co de Phone Number [facility] [place] [address] * POCT Glucose (09/21/2016 9:59 PM EST) Glucose, POC 146 65 - 199 mg/dL [facility] Comment: Supplemental ranges: <140 mg/dL before meals <180 mg/dL all other times of the day Blood specimen (specimen) 09/21/2016 9:59 PM EST 09/21/2016 9:59 PM EST Alirio Esparza MD POINT OF CARE TEST ORDERABLES [facility] [place] [address] * POCT Glucose (09/21/2016 7:26 PM EST) Glucose, POC 152 65 - 199 mg/dL [facility] Comment: Supplemental ranges: <140 mg/dL before meals <180 mg/dL all other times of the day Blood specimen (specimen) 09/21/2016 7:26 PM EST 09/21/2016 7:26 PM EST Alirio Esparza MD POINT OF CARE TEST ORDERABLES [facility] [place] [address] * POCT Glucose (09/21/2016 6:00 PM EST) Glucose, POC 146 65 - 199 mg/dL [facility] Comment: Supplemental ranges: <140 mg/dL before meals <180 mg/dL all other times of the day Blood specimen (specimen) 09/21/2016 6:00 PM EST 09/21/2016 6:00 PM EST Alirio Esparza MD POINT OF CARE TEST ORDERABLES [facility] [place] [address] * (ABNORMAL) BLOOD GAS 2 ARTERIAL (09/21/2016 4:42 PM EST) pH, Arterial 7.35(L) 7.35 - 7.45 [facility] PCO2, Arterial 48(H) 35 - 45 mmHg [facility] PO2, Arterial 108(H) 85 - 104 mmHg [facility] Bicarbonate, Arterial 26.0 20.0 - 26.0 mmol/L [facility] Base Excess, Arterial 0.5 -3.0 - 3.0 mmol/L [facility] Hgb Blood Gas 10.4(L) 11.7 - 15.5 gm/dL [facility] Oxyhemoglobin, Arterial 96.2 94.0 - 97.0 % [facility] Carboxyhemoglob in, Arterial 0.0 % [facility] Comment: Nonsmokers: 0.5-1.5% COHB Smokers: Variable, but usually less than 10% Toxic: 20-30% COHB Lethal: Greater than 60% COHB Methemoglobin, Arterial 0.7 <=1.5 % [facility] Na Whole Blood 139 135 - 145 mmol/L [facility] [...] Whole Blood 106 98 - 107 mmol/L [facility] Gluc Whole Bld 147 65 - 199 mg/dL [facility] Comment:Diabetes: >=200 mg/d L plus symptoms. Lactate WB 1.2 0.5 - 2.2 mmol/L [facility] FIO2 Art 40 % [facility] PF Ratio Art 270 [facility] Blood specimen (specimen) 09/21/2016 4:42 PM EST 09/21/2016 4:42 PM EST Alirio Esparza MD POINT OF CARE TEST ORDERABLES Performing Organization Address [facility] Co de Phone Number [facility] [place] [address] * POCT Glucose (09/21/2016 4:07 PM EST) Glucose, POC 150 65 - 199 mg/dL [facility] Comment: Supplemental ranges: <140 mg/dL before meals <180 mg/dL all other times of the day Blood specimen (specimen) 09/21/2016 4:07 PM EST 09/21/2016 4:07 PM EST Alirio Esparza MD POINT OF CARE TEST ORDERABLES Performing Organization Address [facility] Co de Phone Number [facility] [place] [address] * (ABNORMAL) Hemoglobin (09/21/2016 4:05 PM EST) Hemoglobin 9.9(L) 11.7 - 15.5 gm/dL [facility] Blood specimen (specimen) 09/21/2016 4:05 PM EST 09/21/2016 4:20 PM EST Narrative Resulting Agency Comment Spec In Lab Alirio Esparza MD HEMATOLOGY ORDERABL ES Performing Organization Address [facility] Co de Phone Number [facility] [place] [address] * Potassium (09/21/2016 4:05 PM EST) Potassium 4.6 3.5 - 5.0 mmol/L [facility] [...] MD CHEMISTRY ORDERABLE S Performing Organization Address [facility] Co de Phone Number [facility] [place] [address] * POCT Glucose (09/21/2016 2:52 PM EST) Glucose, POC 117 65 - 199 mg/dL [facility] Comment: Supplemental ranges: <140 mg/dL before meals <180 mg/dL all other times of the day Blood specimen (specimen) 09/21/2016 2:52 PM EST 09/21/2016 2:52 PM EST Alirio Esparza MD POINT OF CARE TEST ORDERABLES Performing Organization Address [facility] Phone Number [facility] [place] [address] * POCT Glucose (09/21/2016 1:51 PM EST) Glucose, POC 108 65 - 199 mg/dL [facility] Comment: Supplemental ranges: <140 mg/dL before meals <180 mg/dL all other times of the day Blood specimen (specimen) 09/21/2016 1:51 PM EST 09/21/2016 1:51 PM EST Alirio Esparza MD POINT OF CARE TEST ORDERABLES Performing Organization Address [facility] Co de Phone Number [facility] [place] [address] * POCT Glucose (09/21/2016 12:54 PM EST) Glucose, POC 128 65 - 199 mg/dL [facility] Comment: Supplemental ranges: <140 mg/dL before meals <180 mg/dL all other times of the day Blood specimen (specimen) 09/21/2016 12:54 PM EST 09/21/2016 12:54 PM EST Alirio Esparza MD POINT OF CARE TEST ORDERABLES Performing Organization Address City/[facility]/ZIP Co de Phone Number [facility] [place] [address] * EKG 12 Lead (09/21/2016 12:26 PM EST) Ventricular rate 87 BPM MUSE SYSTEM Atrial Rate 87 BPM MUSE SYSTEM P-R Interval 256 ms MUSE SYSTEM QRS Duration 90 ms MUSE SYSTEM Q-T Interval 406 ms MUSE SYSTEM QTC Calculated (Bezet) 488 ms MUSE SYSTEM Calculated P [place] 24 degrees MUSE SYSTEM Calculated R [place] 21 degrees MUSE SYSTEM Calculated T [place] -5 degrees MUSE SYSTEM INTERPRETATION Sinus rhythm with 1st degree A-V block Nonspecific T wave abnormality Prolonged QT Abnormal ECG When compared with ECG of 19-MAY-2016 11:43, [place] interval has increased T wave inversion now evident in inferior and midanterior leads Confirmed by MD ESTES EDWARD ([id number]) on 09/21/2016 1:40:59 PM MUSE SYSTEM 09/21/2016 12:2 6 PM EST 09/21/2016 1:40 PM EST Alirio Esparza MD ECG ORDERABLES Performing Organization Address [facility] Co de Phone Number MUSE SYSTEM [...] course of the esophagus and below the [id number]. There is a right IJ PA catheter [...] the course of theesophagus and below the [id number]. There is a right IJ PA catheter [...] EST) pH, Arterial 7.41 7.35 - 7.45 [facility] PCO2, Arterial 42 35 - 45 mmHg [facility] PO2, Arterial 356(H) 85 - 104 mmHg [facility] Bicarbonate, Arterial 26.2(H) 20.0 - 26.0 mmol/L [facility] Base Excess, Arterial 1.6 -3.0 - 3.0 mmol/L [facility] Hgb Blood Gas 10.7(L) 11.7 - 15.5 gm/dL [facility] Oxyhemoglobin, Arterial 98.1(H) 94.0 - 97.0 % [facility] Carboxyhemoglob in, Arterial 0.3 % [facility] Comment: Nonsmokers: 0.5-1.5% COHB Smokers: Variable, but usually less than 10% Toxic: 20-30% COHB Lethal: Greater than 60% COHB Methemoglobin, Arterial 0.8 <=1.5 % [facility] Na Whole Blood 140 135 - 145 mmol/L [facility] K Whole Blood 3.8 3.5 - 5.0 mmol/L [facility] Comment: Please note: Patients with WBC >100,000 may have falsely elevated Potassium levels. Contact the Clinical Chemistry Laboratory if there are any questions. ICa Whole Blood 1.15(L) 1.15 - 1.33 mmol/L [facility] Comment: Note: ??Total bilirubin higher than 20 mg/dL may lead to falsely low ionized calcium. CL Whole Blood 106 98 - 107 mmol/L [facility] Gluc Whole Bld 135 65 - 199 mg/dL [facility] Comment:Diabetes: >=200 mg/d L plus symptoms. Lactate WB 2.2 0.5 - 2.2 mmol/L [facility] FIO2 Art 100 % [facility] PF Ratio Art 356 [facility] Blood specimen (specimen) 09/21/2016 12:20 PM EST 09/21/2016 12:20 PM EST Alirio Esparza MD POINT OF CARE TEST ORDERABLES Performing Organization Address City/State/[facility] Co de Phone Number [facility] [place] [address] * (ABNORMAL) BLOOD GAS 2 ARTERIAL (09/21/2016 10:54 AM EST) pH, Arterial 7.43 7.35 - 7.45 [facility] PCO2, Arterial 40 35 - 45 mmHg [facility] PO2, Arterial 297(H) 85 - 104 mmHg [facility] Bicarbonate, Arterial 26.0 20.0 - 26.0 mmol/L [facility] Base Excess, Arterial 1.6 -3.0 - 3.0 mmol/L [facility] Hgb Blood Gas 8.6(L) 11.7 - 15.5 gm/dL [facility] Oxyhemoglobin, Arterial 98.6(H) 94.0 - 97.0 % [facility] Carboxyhemoglob in, Arterial 0.5 % [facility] Comment: Nonsmokers: 0.5-1.5% COHB Smokers: Variable, but usually less than 10% Toxic: 20-30% COHB Lethal: Greater than 60% COHB Methemoglobin, Arterial 0.3 <=1.5 % [facility] Na Whole Blood 134(L) 135 - 145 mmol/L [facility] K Whole Blood 4.5 3.5 - 5.0 mmol/L [facility] Comment: Please note: Patients with WBC >100,000 may have falsely elevated Potassium levels. Contact the Clinical Chemistry Laboratory if there are any questions. ICa Whole Blood 1.16 1.15 - 1.33 mmol/L [facility] Comment: Note: ??Total bilirubin higher than 20 mg/dL may lead to falsely low ionized calcium. CL Whole Blood 104 98 - 107 mmol/L [facility] Gluc Whole Bld 240(H) 65 - 199 mg/dL [facility] Comment:Diabetes: >=200 mg/d L plus symptoms. Lactate WB 2.4(H) 0.5 - 2.2 mmol/L [facility] FIO2 Art 95 % [facility] Flow Art 0.7 LPM [facility] PF Ratio Art 313 [facility] Temp Art 36.7 Celsius [facility] Blood specimen (specimen) 09/21/2016 10:54 AM EST 09/21/2016 10:54 AM EST Alirio Esparza MD POINT OF CARE TEST ORDERABLES Performing Organization Address City/State/[facility] Co de Phone Number [facility] [place] [address] * Thrombin time (09/21/2016 10:50 AM EST) Thrombin Time 19 15 - 20 sec [facility] Comment: A prolongation in the [...] MD HEMATOLOGY ORDERABLE S Performing Organization Address [facility] Co de Phone Number [facility] [place] [address] * Fibrinogen (09/21/2016 10:50 AM EST) Fibrinogen 228 180 - 510 mg/dL [facility] Comment: Called by: JONNATHAN, Read back by: MICHELLE ALEJANDRE_, Date/Time:09/21/16 11:11. A fibrinogen level >100 mg/dL is adequate for hemostasis in most patients without underlying bleeding disorders. Blood specimen (specimen) 09/21/2016 10:50 AM EST 09/21/2016 10:56 AM EST Narrative Resulting Agency Comment Spec In Lab Luis Enrique Quarles MD HEMATOLOGY ORDERABLE S Performing Organization Address [facility] Co de Phone Number [facility] [place] [address] * APTT (09/21/2016 10:50 AM EST) Partial Thromboplastin Time 32 25 - 35 sec [facility] Comment: The recommended therapeutic range for full dose, unfractionated heparin at [facility] is 80 ? 114 seconds. The use of the anti-Xa (heparin) level rather than the PTT is recommended for monitoring anticoagulation intensity in critically ill patients receiving unfractionated heparin by continuous IV infusion. Blood specimen (specimen) 09/21/2016 10:50 AM EST 09/21/2016 10:56 AM EST Narrative Resulting Agency Comment Spec In Lab Luis Enrique Quarles MD HEMATOLOGY ORDERABLE S Performing Organization Address City/[facility] Co de Phone Number [facility] [place] [address] * (ABNORMAL) Prothrombin Time (09/21/2016 10:50 AM EST) Prothrombin Time 18.7(H) 12.0 - 15.0 sec [facility] Comment: An INR [...] International Normalization Ratio 1.5(H) 0.9 - 1.1 [facility] Blood specimen (specimen) 09/21/2016 10:50 AM EST 09/21/2016 10:56 AM EST Narrative Resulting Agency Comment Spec In Lab Luis Enrique Quarles MD HEMATOLOGY ORDERABLE S Performing Organization Address City/State/[facility] Co de Phone Number [facility] [place] [address] * (ABNORMAL) Hemogram (09/21/2016 10:50 AM EST) Pathologist [facility] White Blood Cell 14.7(H) 4.0 - 9.5 x10(3)/mc L [facility] Red Blood Cell 2.40(L) 4.00 - 5.21 x10(6)/mc L [facility] Hemoglobin 7.9(L) 11.7 - 15.5 gm/dL [facility] Hematocrit 23.2(L) 35.7 - 45.8 % [facility] Comment: This result has been called to MICHELLE GRIGSBY by ASHU MORENO on 09 21 2016 at 1102, and has been read back. Mean Cell Volume 96.7(H) 82.6 - 94.4 fL [facility] Mean Cell Hemoglobin 32.9(H) 27.1 - 32.0 pg [facility] Mean Cell Hemoglobin Concentration 34.1 31.7 - 35.0 gm/dL [facility] Platelet 117(L) 145 - 357 x10(3)/mc L [facility] RDW Standard Deviation 42.6 37.0 - 46.0 [facility] RDW coefficient of variation 12.1 11.5 - 14.1 % [facility] Mean Platelet Volume 9.2 7.6 - 12.9 [facility] NRBC% auto 0.1 % [facility] NRBC Absolute 0.020(H) 0.000 - 0.000 x10(3)/mc L [facility] Blood specimen (specimen) 09/21/2016 10:50 AM EST 09/21/2016 10:56 AM EST Narrative Resulting Agency Comment Spec In Lab Luis Enrique Quarles MD HEMATOLOGY ORDERABLE S Performing Organization Address [facility] Co de Phone Number [facility] [place] [address] * Prepare Platelets, Apheresis (09/21/2016 10:30 AM EST) Pathologist [facility] Dispensed? Yes [facility] Blood specimen (specimen) 09/21/2016 10:30 AM EST 09/21/2016 10:28 AM EST Alirio Esparza MD BLOOD BANK PRODUCT ORDERABLES Performing Organization Address [facility] Co nj Phone Number [facility] [place] [address] * (ABNORMAL) BLOOD GAS 2 ARTERIAL (09/21/2016 10:05 AM EST) pH, Arterial 7.33(L) 7.35 - 7.45 [facility] PCO2, Arterial 54(Critic al) 35 - 45 mmHg [facility] Comment:Noted by instrument technologist. PO2, Arterial 218(H) 85 - 104 mmHg [facility] Bicarbonate, Arterial 27.9(H) 20.0 - 26.0 mmol/L [facility] Base Excess, Arterial 2.0 -3.0 - 3.0 mmol/L [facility] Hgb Blood Gas 8.6(L) 11.7 - 15.5 gm/dL [facility] Oxyhemoglobin, Arterial 98.4(H) 94.0 - 97.0 % [facility] Carboxyhemoglo bin, Arterial 0.5 % [facility] Comment: Nonsmokers: 0.5-1.5% COHB Smokers: Variable, but usually less than 10% Toxic: 20-30% COHB Lethal: Greater than 60% COHB Methemoglobin, Arterial 0.3 <=1.5 % [facility] Na Whole Blood 129(L) 135 - 145 mmol/L [facility] K Whole Blood 6.2(Criti gabrielle) 3.5 - 5.0 mmol/L [facility] Comment: Noted by instrument technologist. Please note: Patients with WBC >100,000 may have falsely elevated Potassium levels. Contact the Clinical Chemistry Laboratory if there are any questions. ICa Whole Blood 0.95(L) 1.15 - 1.33 mmol/L [facility] Comment: Note: ??Total bilirubin higher than 20 mg/dL may lead to falsely low ionized calcium. CL Whole Blood 100 98 - 107 mmol/L [facility] Gluc Whole Bld 289(H) 65 - 199 mg/dL [facility] Comment:Diabetes: >=200 mg/d L plus symptoms. Lactate WB 2.2 0.5 - 2.2 mmol/L [facility] Temp Art 37.0 Celsius [facility] Blood specimen (specimen) 09/21/2016 10:05 AM EST 09/21/2016 10:05 AM EST Alirio Esparza MD POINT OF CARE TEST ORDERABLES [facility] [place] [address] * (ABNORMAL) BLOOD GAS 2 ARTERIAL (09/21/2016 9:44 AM EST) pH, Arterial 7.22(Criti gabrielle) 7.35 - 7.45 [facility] Comment:Noted by instrument technologist. PCO2, Arterial 70(Critica l) 35 - 45 mmHg [facility] Comment:Noted by instrument technologist. PO2, Arterial 224(H) 85 - 104 mmHg [facility] Bicarbonate, Arterial 27.8(H) 20.0 - 26.0 mmol/L [facility] Base Excess, Arterial 0.0 -3.0 - 3.0 mmol/L [facility] Hgb Blood Gas 8.7(L) 11.7 - 15.5 gm/dL [facility] Oxyhemoglobin, Arterial 98.5(H) 94.0 - 97.0 % [facility] Carboxyhemoglob in, Arterial 0.6 % [facility] Comment: Nonsmokers: 0.5-1.5% COHB Smokers: Variable, but usually less than 10% Toxic: 20-30% COHB Lethal: Greater than 60% COHB Methemoglobin, Arterial 0.3 <=1.5 % [facility] Na Whole Blood 131(L) 135 - 145 mmol/L [facility] K Whole Blood 5.9(H) 3.5 - 5.0 mmol/L [facility] Comment: Please note: Patients with WBC >100,000 may have falsely elevated Potassium levels. Contact the Clinical Chemistry Laboratory if there are any questions. ICa Whole Blood 1.00(L) 1.15 - 1.33 mmol/L [facility] Comment: Note: ??Total bilirubin higher than 20 mg/dL may lead to falsely low ionized calcium. CL Whole Blood 101 98 - 107 mmol/L [facility] Gluc Whole Bld 227(H) 65 - 199 mg/dL [facility] Comment:Diabetes: >=200 mg/d L plus symptoms. Lactate WB 2.1 0.5 - 2.2 mmol/L [facility] Blood specimen (specimen) 09/21/2016 9:44 AM EST 09/21/2016 9:44 AM EST Alirio Esparza MD POINT OF CARE TEST ORDERABLES [facility] [place] [address] * (ABNORMAL) Hemoglobin (09/21/2016 9:42 AM EST) Hemoglobin 7.2(L) 11.7 - 15.5 gm/dL [facility] Blood specimen (specimen) 09/21/2016 9:42 AM EST 09/21/2016 9:51 AM EST Narrative Resulting Agency Comment Spec In Lab Alirio Esparza MD HEMATOLOGY ORDERABL ES Performing Organization Address [facility]/ZIP Co de Phone Number [facility] [place] [address] * Platelet count (09/21/2016 9:42 AM EST) Platelet 159 145 - 357 x10(3)/mc L [facility] Immature Plt % 1.6 0.0 - 7.4 % [facility] Comment: Limitation of the Immature Platelet Fraction (IPF)-May be less reliable when the platelet count is less than [id number] due to statistical imprecision. The IPF value [...] in a decreased state of production. References: [employer] The Clinical Value of the Immature Platelet Fraction (IPF) in Cell Recovery Document Number [id number] 12/2010 [employer] The Role of the Immature Platelet Fraction (IPF) in the Differential Diagnosis of Thrombocytopenia, Document [id number] V012/11/13 P012/13 Blood specimen (specimen) 09/21/2016 9:42 AM EST 09/21/2016 9:51 AM EST Narrative Resulting Agency Comment Spec In Lab Alirio Esparza MD HEMATOLOGY ORDERABL ES Performing Organization Address [facility] Co de Phone Number [facility] [facility] [place] [address] * (ABNORMAL) Hematocrit (09/21/2016 9:42 AM EST) Hematocrit 21.6(L) 35.7 - 45.8 % [facility] Comment: This result has been called to MICHELLE ALEJANDRE by Serjio Frazier on 09 21 2016 at 0957, and has been read back. Blood specimen (specimen) 09/21/2016 9:42 AM EST 09/21/2016 9:51 AM EST Narrative Resulting Agency Comment Spec In Lab Alirio Esparza MD HEMATOLOGY ORDERABL ES Performing Organization Address [facility] de Phone Number [facility] [place] [address] * Fibrinogen (09/21/2016 9:42 AM EST) Fibrinogen 219 180 - 510 mg/dL [facility] Comment: Called by: JONNATHAN, Read back by: MICHELLE ALEJANDRE_, Date/Time:09/21/16 10:03_. A fibrinogen level >100 mg/dL is adequate for hemostasis in most patients without underlying bleeding disorders. Blood specimen (specimen) 09/21/2016 9:42 AM EST 09/21/2016 9:51 AM EST Narrative Resulting Agency Comment Spec In Lab Alirio Esparza MD HEMATOLOGY ORDERABL ES Performing Organization Address [facility] Co de Phone Number [facility] [place] [address] * (ABNORMAL) BLOOD GAS 2 ARTERIAL (09/21/2016 9:10 AM EST) pH, Arterial 7.36 7.35 - 7.45 [facility] PCO2, Arterial 48(H) 35 - 45 mmHg [facility] PO2, Arterial 295(H) 85 - 104 mmHg [facility] Bicarbonate, Arterial 26.0 20.0 - 26.0 mmol/L [facility] Base Excess, Arterial 0.5 -3.0 - 3.0 mmol/L [facility] Hgb Blood Gas 8.0(L) 11.7 - 15.5 gm/dL [facility] Oxyhemoglobin, Arterial 98.3(H) 94.0 - 97.0 % [facility] Carboxyhemoglob in, Arterial 1.0 % [facility] Comment: Nonsmokers: 0.5-1.5% COHB Smokers: Variable, but usually less than 10% Toxic: 20-30% COHB Lethal: Greater than 60% COHB Methemoglobin, Arterial 0.3 <=1.5 % [facility] Na Whole Blood 135 135 - 145 mmol/L [facility] K Whole Blood 5.4(H) 3.5 - 5.0 mmol/L [facility] Comment: Please note: Patients with WBC >100,000 may have falsely elevated Potassium levels. Contact the Clinical Chemistry Laboratory if there are any questions. ICa Whole Blood 0.93(L) 1.15 - 1.33 mmol/L [facility] Comment: Note: ??Total bilirubin higher than 20 mg/dL may lead to falsely low ionized calcium. CL Whole Blood 102 98 - 107 mmol/L [facility] Gluc Whole Bld 195 65 - 199 mg/dL [facility] Comment:Diabetes: >=200 mg/d L plus symptoms. Lactate WB 1.8 0.5 - 2.2 mmol/L [facility] Temp Art 37.0 Celsius [facility] Blood specimen (specimen) 09/21/2016 9:10 AM EST 09/21/2016 9:10 AM EST Alirio Esparza MD POINT OF CARE TEST ORDERABLES Performing Organization Address [facility] Co de Phone Number [facility] [place] [address] * Surgical Pathology Report (09/21/2016 9:09 AM EST) Final Diagnosis [id number] ?Location: 3T The signing pathologist has (i) [...] ?. (R1) ??ADELITA 09/24/2016 9:32 AM EST [facility] AORTIC STRUCTURE / Unknown 09/21/2016 9:09 AM EST 09/21/2016 9:09 AM EST Alirio Esparza MD PATHOLOGY/CYTOLOGY ORDERABLES Performing Organization Address [facility]/ZIP Co de Phone Number [facility] [place] [address] * Specimen to Pathology (surgical or derm) (09/21/2016 9:09 AM EST) AP Specimen 09/21/2016 9:09 AM EST 09/21/2016 9:09 AM EST Narrative [facility] - 09/21/2016 9:09 AM EST Specimen requisition ordered. ??Separate Pathology report to follow Alirio Esparza MD PATHOLOGY/CYTOLOGY ORDERABLES [facility] [place] [address] * (ABNORMAL) BLOOD GAS 2 ARTERIAL (09/21/2016 8:50 AM EST) pH, Arterial 7.41 7.35 - 7.45 [facility] PCO2, Arterial 33(L) 35 - 45 mmHg [facility] PO2, Arterial 348(H) 85 - 104 mmHg [facility] Bicarbonate, Arterial 20.6 20.0 - 26.0 mmol/L [facility] Base Excess, Arterial -4.1(L) -3.0 - 3.0 mmol/L [facility] Hgb Blood Gas 9.5(L) 11.7 - 15.5 gm/dL [facility] Oxyhemoglobin, Arterial 98.8(H) 94.0 - 97.0 % [facility] Carboxyhemoglob in, Arterial 0.3 % [facility] Comment: Nonsmokers: 0.5-1.5% COHB Smokers: Variable, but usually less than 10% Toxic: 20-30% COHB Lethal: Greater than 60% COHB Methemoglobin, Arterial 0.3 <=1.5 % [facility] Na Whole Blood 137 135 - 145 mmol/L [facility] K Whole Blood 4.0 3.5 - 5.0 mmol/L [facility] [...] Whole Blood 105 98 - 107 mmol/L [facility] Gluc Whole Bld 93 65 - 199 mg/dL [facility] Comment:Diabetes: >=200 mg/d L plus symptoms. Lactate WB 1.0 0.5 - 2.2 mmol/L [facility] Blood specimen (specimen) 09/21/2016 8:50 AM EST 09/21/2016 8:50 AM EST Alirio Esparza MD POINT OF CARE TEST ORDERABLES [facility] [place] [address] * (ABNORMAL) BLOOD GAS 2 ARTERIAL (09/21/2016 8:18 AM EST) pH, Arterial 7.42 7.35 - 7.45 [facility] PCO2, Arterial 36 35 - 45 mmHg [facility] PO2, Arterial 283(H) 85 - 104 mmHg [facility] Bicarbonate, Arterial 22.8 20.0 - 26.0 mmol/L [facility] Base Excess, Arterial -2.0 -3.0 - 3.0 mmol/L [facility] Hgb Blood Gas 12.6 11.7 - 15.5 gm/dL [facility] Oxyhemoglobin, Arterial 99.0(H) 94.0 - 97.0 % [facility] Carboxyhemoglob in, Arterial 0.6 % [facility] Comment: Nonsmokers: 0.5-1.5% COHB Smokers: Variable, but usually less than 10% Toxic: 20-30% COHB Lethal: Greater than 60% COHB Methemoglobin, Arterial 0.0 <=1.5 % [facility] Na Whole Blood 144 135 - 145 mmol/L [facility] K Whole Blood 4.0 3.5 - 5.0 mmol/L [facility] Comment: Please note: Patients with WBC >100,000 may have falsely elevated Potassium levels. Contact the Clinical Chemistry Laboratory if there are any questions. ICa Whole Blood 1.22 1.15 - 1.33 mmol/L [facility] Comment: Note: ??Total bilirubin higher than 20 mg/dL may lead to falsely low ionized calcium. CL Whole Blood 106 98 - 107 mmol/L [facility] Gluc Whole Bld 102 65 - 199 mg/dL [facility] Comment:Diabetes: >=200 mg/d L plus symptoms. Lactate WB 1.2 0.5 - 2.2 mmol/L [facility] FIO2 Art 95 % [facility] Flow Art 1.1 LPM [facility] PF Ratio Art 298 [facility] Temp Art 35.6 Celsius [facility] Blood specimen (specimen) 09/21/2016 8:18 AM EST 09/21/2016 8:18 AM EST Alirio Esparza MD POINT OF CARE TEST ORDERABLES [facility] [place] [address] * Prepare RBC (09/21/2016 7:05 AM EST) Dispensed? Yes [facility] Blood specimen (specimen) 09/21/2016 7:05 AM EST 09/21/2016 7:02 AM EST Alirio Esparza MD BLOOD BANK PRODUCT ORDERABLES [facility] [place] [address] * POCT Glucose (09/21/2016 6:42 AM EST) Glucose, POC 104 65 - 199 mg/dL [facility] Comment: Supplemental ranges: <140 mg/dL before meals <180 mg/dL all other times of the day Blood specimen (specimen) 09/21/2016 6:42 AM EST 09/21/2016 6:42 AM EST Alirio Esparza MD POINT OF CARE TEST ORDERABLES [facility] [place] [address] documented in this encounter Visit Diagnoses Diagnosis [...] dose on Wed09/21/16 at 1230, Until Discontinued, [place] teeth, Routine Given 09/25/2016 9:40 AM EST [...] if phenyleprine and/or vasopressin ineffective.Call pager # [phone] if initiated., Routine Rate/Dose Change 09/21/2016 2:27 [...] L/min/M2. Maximum volume 2 L. Call warehouse shift supervisor for additional fluid orders: pager #[phone]. Rate/Dose Verify 09/22/2016 10:00 AM EST 10 [...] dose on Wed09/21/16 at 1230, Until Discontinued, [place] teeth, Routine 0900 (Not Given - Provider: [...] Routine documented in this encounter Care Teams Hot Dog Vender Relationship Specialty Start Date End Date Deborah Quiroga APRN PCP - General Family Medicine 03/24/16 02/04/23 documented as of this encounter
--- OUTSIDE RECORDS SUMMARY | 2024-04-04 14:19 | XMS_ITS | Encounter Summary ---
[place] [address] Care Team Providers Care Urogynecology Physician Name Role Phone Ashley Quirogan Cornelius ANURAG Primary Care Provider [phone] Reason for Visit * Reason Onset Date Comments Medical Care Coordination 09/14/2016 Encounter Details Date Type Department Care Team (Late st Contact Info) Description 09/14/2016 Telephone [place] [phone] Alexandrea [place] RN Medical Care Coordination Social [...] 09/14/2016 9:10 AM EST Message received from nursing secretary: Injection/Infusion Referral Call placed to [facility] Infusion Room Spoke charis Bragg. Services to be provided for pt are: Miles 09/16/16 Mah[facility] confirmed they would provide services to pt and would contact with appointment time. Pt aware to expect the phone call ??orders faxed to [phone]). documented in this encounter Plan of Treatment Upcoming Encounters Date Type Department Care Team (Late st Contact Info) Description 03/01/2025 4:15 PM EDT Office Visit Dermatology at [place] [address] [place] [phone] Marek Bonilla MD [address], [place] [address] documented as of this encounter Visit Diagnoses Not on filedocumented in this encounter Care Teams Urogynecology Physician Relationship Specialty Start Date End Date Deborah Quiroga APRN PCP - General Family Medicine 03/24/16 02/04/23 documented as of this encounter
--- OUTSIDE RECORDS SUMMARY | 2024-04-04 14:19 | XMS_ITS | Encounter Summary ---
[place] [address] Care Team Providers Care Surface Ship Usw Supervisor Name Role Phone Deborah Quiroga APRN Primary Care Provider [phone] Encounter Details Date Type Department Care Team (Late st Contact Info) Description 08/18/2016 Orders [place] [phone] Alirio Esparza MD Aortic valve stenosis, unspecified [...] 4:15 PM EDT Office Visit Dermatology at [place] [address] [place] [phone] Marek Bonilla MD [address] [place] [address] documented as of this encounter Results * Basic Metabolic Panel (non-fasting) (08/18/2016 4:50 PM EST) Glucose 82 65 - 199 mg/dL [facility] Comment:Diabetes: >=200 mg/d L plus symptoms Blood Urea Nitrogen 12 8 - 18 mg/dL [facility] Creatinine 0.87 0.70 - 1.20 mg/dL [facility] Comment: Please note that the pediatric reference intervals supplied above were not validated at [facility]. Results from pediatric patients [...] LABORATORY Est Glomerular Filtration Rate >60 >=60 [facility] Comment: [...] the following links into your internet browser. [email or web address] Blood specimen (specimen) 08/18/2016 4:50 PM EST 08/18/2016 5:03 PM EST Narrative Resulting Agency Comment Spec In Lab Alirio Esparza MD CHEMISTRY ORDERABLE S [facility] [place] [address] documented in this encounter Visit Diagnoses Diagnosis Aortic valve stenosis, unspecified etiology documented in this encounter Care Teams Surface Ship Usw Supervisor Relationship Specialty Start Date End Date Deborah Quiroga, OBGYN NURSE PCP - General Family Medicine 03/24/16 02/04/23 documented as of this encounter
--- OUTSIDE RECORDS SUMMARY | 2024-04-04 14:19 | XMS_ITS | Encounter Summary ---
[place] [address] Care Team Providers Care Petroleum Refining Equipment Operator Name Role Phone Ashley Quirogazac Shields APRN Primary Care Provider [phone] Reason for Visit * Auth/Cert Specialty Diagnoses / Procedures Referred By Crispin t Referred To Contact Diagnoses Aortic stenosis Procedures PRO REPLACE AORT VALV, PROSTH VALV @REPLACE AORTIC VALVE, OPEN, W\CPB, W\PROSTHETIC VALVE (WRVU 41.32) Referral ID Status Reason Start Date Expiration Date Visits Re quested Visits Authorized [id number] 1 1 Encounter Details Date Type Department Care Team (Late st Contact Info) Description 09/21/2016 7:30 AM EST - 09/21/2016 12:04 PM EST Surgery [place] [address] Alirio Esparza MD @REPLACE AORTIC VALVE, OPEN, [...] Patient Age: 61 y.o. Birthdate: 1955 Language: Estonian Race: White Ethnicity: Not nor Admit Date: 09/21/2016 Discharge Date: 09/25/2016 Attending Physician: Alirio Esparza MD Follow-up Recommendations for Providers: Please continue routine management of cardiovascular risk factors including blood pressure, lipids,glucose, etc. Please note any changes to medications. Patient to follow-up with PCP, Deborah Quiroga APRN, in 1-2 weeks. Patient to follow-up with Sql Server Dba Developer, Dr. Antelmo Burrell, in two weeks. Patient to follow-up with Cardiac Surgery, Dr. Alirio Esparza, to be scheduled for before 10/19/2016, with CXR, EKG, and Echo. Inpatient Provider Contact Information: [facility] Section of Cardiac Surgery [facility] [address] FAX [phone] Discharge Diagnoses (Hospital Problems) Primary Diagnoses: Secondary [...] Hospital Course: Purnima Thacker was admitted to [facility] on 09/21/2016 via the Same Day Program. [...] Alirio Esparza and/or the Cardiac Surgery Physician Healthcare Technician Team may be reached at . [...] Dr. Alirio Jones. You may use a [place] Track or treadmill but avoid any pulling [...] friends, go to a movie, go to jainism, etc. Heavy activities: No hunting, skiing, jogging, [...] Phase 2 Cardiac Rehabilitation at [facility]. The patient agrees to a referral to this program. The referral will be sent at discharge and the patient should be contacted by the program within 1- 2 weeks from discharge. Future Appointments and Orders Future Appointments Provider Department Dept Phone 11/20/2016 11:30 AM Markel Borjas MD [facility] Onc [phone] Future Orders Complete By Expires Echocardiogram Transthoracic([facility]) [ORE677 Custom] 10/18/2016 (Approximate) 09/18/2017 Process Instructions: If the Echocardiogram is to be PERFORMED in a DH location other than [place]--STOP and order [id number], Echocardiogram South/External. Scheduling Instructions: Questions: Is a Bubble Study requested?: No Does the patient have Congenital Heart Disease?: No Does patient require sedation?: None GA rationale: Should this service be billed to the research sponsor?: EKG 12 Lead [EKG1 Custom] 10/18/2016 (Approximate) 09/25/2017 Process Instructions: Scheduling Instructions: Questions: Which DH location will this be performed?: [place] Is a rhythm strip needed?: No If EKG Reason is Pre-op Evaluation, indicate diagnosis for surgery.: Should this service be billed to the research sponsor?: XR Chest PA & Lateral (Generic) [[id number] Custom] 10/18/2016 (Approximate) 09/25/2017 Process Instructions: Scheduling Instructions: Questions: Where will study be performed?: [facility]- Radiology Portable exam?: No Reason for exam and clinical history: s/p AVReplacement, patch annuloplasty 1 month f/u Other pertinent information: Stat read required?: Date of injury if applicable: Requested Time: Referral to Cardiac Rehab [HES669 Custom] As directed Process Instructions: If no progress note charted, please enter Clinical details in comments. Scheduling Instructions: Questions: My question or request is: s/p AVR. Cardiac rehab at [facility] Referral to Home Health - at DISCHARGE [ATC4441 CPT(R)] As directed Process Instructions: Scheduling Instructions: Comments: DOCUMENTATION FOR VNA SERVICES (INCLUDING THOSE PATIENTS WITH MEDICARE COVERAGE REQUIRING HOME VNA SERVICES AND/OR HOSPICE SERVICES) PATIENT'S LOCATION: Purnimakary Galleg[address] [address] (home) No relevant phone numbers on file. Station Mechanic Helper's Name: self In discussion with the attending physician, it is certified that this patient is under their care and that they, or a Nurse Practitioner, or Physician Healthcare Technician who is working directly with them, [...] for services as follows: HOME HEALTH AGENCY: [facility] PHONE: [phone] FAX: [phone] RN orders: Cardiopulmonary assessment, incisional assessment, assess [...] issues please call the Cardiac SurgeryOffice at [phone] FOR MEDICARE ONLY: In discussion with the [...] noted. Questions: Agency name and contact information: [facility] Patient location post discharge: home What services are requested: Registered Nurse Physical Therapy Occupational Therapy Start date: Responsible MD post discharge contact info: Arrangements for VNA/home care: As above. VN RN OR PCP TO PLEASE REMOVE CHEST TUBE SUTURES ON OR AFTER 09/30/16 Signed: Crispin Aranda PA-C 09/25/2016 [facility] Section of Cardiac Surgery [facility] [address] FAX [phone] Date: 09/25/2016 CC: ANURAG Alford Caryn E, APRN [address] [place] [address] documented in this encounter Discharge Instructions * [...] Alirio Esparza and/or the Cardiac Surgery Physician Healthcare Technician Team may be reached at . [...] Dr. Alirio Jones. You may use a [place] Track or treadmill but avoid any pulling [...] friends, go to a movie, go to jainism, etc. Heavy activities: No hunting, skiing, jogging, [...] Phase 2 Cardiac Rehabilitation at [facility]. The patient agrees to a referral [...] PM EST Cardiac Surgery Progress Note: ID: [id number] S/p AVR, patch aortoplasty POD#2. PMH of [...] Gas) No results found for: PHART, PO2ART, [id number] Assessment/Plan: TPW out this am. (+) BM. [...] Signed: Crispin Aranda PA-C 09/24/2016 Team pager: [phone] after 5pm [facility] Section of Cardiac Surgery * Leonor Henson S, LEADED GLASS INSTALLER - 09/23/2016 10:48 AM EST Cardiac Surgery Progress Note: ID: [id number] s/p AVR, patch aortoplasty POD#2. PMH of [...] Gas) No results found for: PHART, PO2ART, [id number] Assessment/Plan: s/p AVR, patch aortoplasty POD#2. PMH of Neutropenia, HLD, HTN, Depression, obesity, . Transferred from [facility] yesterday and doing well. Pathway. Will [...] Surgeon on rounds. Signed: Leonor Henson APRN [facility] Section of Cardiac Surgery Date: 09/23/2016 * Nico Palacios PA - 09/22/2016 9:56 AM EST Cardiac Surgery Progress Note: ID: [id number] s/p AVR, patch aortoplasty POD#1. PMH of [...] NT, ND, soft. Ext: Moves all extremities. [place], well perfused. Incisions: C/D/I Tubes/Lines/Drains: PIV, leanna, [...] Attending Surgeon on rounds. Signed: EKATERINA KIM [facility] Section of Cardiac Surgery Date: 09/22/2016 * [...] Outcome (s) achieved Date Met: 09/25/16 09/25/16 2418 Coping/Psychosocial Plan Of Care Reviewed With patient [...] health, home with outpatient services Lalitha Cohen [facility] Pager: [phone] Inpatient Physical Therapy Patient status, treatment interventions, and goals discussed with student. I am in agreement with all details and associated flowsheet rows as documented and was present for all aspects of the patient treatment session. Nery Jaramillo, CANDY Pager [phone] Problem: Acute Rehab Services Goal & Intervention Plan Goal: Bed Mobility Goal Stand Alone Therapy Goal Outcome: Ongoing (Interventions Implemented as Appropriate) 09/22/16 1611 09/25/16 0947 Bed Mobility Goal Bed Mobility Goal, Time to Achieve 4 days -- Bed Mobility Goal, Activity Type scoot/bridge;supine to sit/sit to supine -- Bed Mobility Goal, [place] Level independent -- Bed Mobility Goal, Additional [...] Achieve 4 days -- Gait Training Goal, [place] Level independent -- Gait Training Goal, Distance [...] assist, home with home health [facility] Pager: [phone] Inpatient Physical Therapy Patient status, treatment interventions, and goals discussed with student. I am in agreement with all details and associated flowsheet rows as documented and was present for all aspects of the patient treatment session. Nery Jaramillo, SHUTTLE REPAIRER Pager [phone] Problem: Acute Rehab Services Goal & Intervention Plan Goal: Bed Mobility Goal Stand Alone Therapy Goal Outcome: Ongoing (Interventions Implemented as Appropriate) 09/22/16161009/23/161411 Bed Mobility Goal Bed Mobility Goal, Time to Achieve 4 days -- Bed Mobility Goal, Activity Type scoot/bridge;supine to sit/sit to supine -- Bed Mobility Goal, [place] Level independent -- Bed Mobility Goal, Additional [...] Achieve 4 days -- Gait Training Goal, [place] Level independent -- Gait Training Goal, Distance [...] days -- Transfer Training Goal, Activity Type lxb-ph-yzzis/vxmxe-sb-jst;ekz-ha-mdotn/kbala-cf-fgf -- Transfer Train Goal, [place] Level independent -- Transfer Training Goal, Additional Goal abides sternal precautions -- Transfer Training Goal, Outcome -- goal met * Consult Note - Jana Crenshaw RN - 09/23/2016 9:41 AM EST [facility] Purnima Thacker was seen today regarding participation in the outpatient Phase 2 Cardiac Rehabilitation at [facility]. The patient agrees to a referral [...] Another Service: (cardiac rehab) NICOLE HERNANDEZ, PT Pager:[phone] Inpatient Physical Therapy Problem: Acute Rehab Services Goal & Intervention Plan Goal: Bed Mobility Goal Stand Alone Therapy Goal Outcome: Ongoing (Interventions Implemented as Appropriate) 09/22/161610 Bed Mobility Goal Bed Mobility Goal, Time to Achieve 4 days Bed Mobility Goal, Activity Type scoot/bridge;supine to sit/sit to supine Bed Mobility Goal, [place] Level independent Bed Mobility Goal, Additional Goal able to abide sternal precautions during transfers Goal: Gait Training Goal Stand Alone Therapy Goal Outcome: Ongoing (Interventions Implemented as Appropriate) 09/22/161610 Gait Training Goal Gait Training Goal, Date Established 09/22/16 Gait Training Goal, Time to Achieve 4 days Gait Training Goal, [place] Level independent Gait Training Goal, Distance to Achieve ascend and descends 2 steps independently Goal: Goal Transfer Training Stand Alone Therapy Goal Outcome: Ongoing (Interventions Implemented as Appropriate) 09/22/161610 Goal Transfer Training Transfer Training Goal, Time to Achieve 4 days Transfer Training Goal, Activity Type xjw-ov-esvzt/obehd-vx-elu;xqb-sg-xgzlo/rwkoz-sg-dkm Transfer Train Goal, [place] Level independent Transfer Training Goal, Additional Goal [...] of completing AD's at home, chooses her zqafzz-li-znn, Martha Thacker (home) for her DPOAH, 2nd choice in friend, Nitesh Rad, [place], [place] Current Coping/Education/Information Needs: patient sitting up [...] close by, Rashad & Raymond, and her gsqscf-yh-oar Martha Thacker who she has chosen to be her DPOAH. Also has a friend Nitesh Leroy who lives in [place], [place], also her DPOAH choice. Behavioral Health History: none on file in e[facility] Substance Use/Abuse: none on file in [facility] Other Pertinent/Service Specific Information: none Health/Prescription Coverage: Primary Insurance: [employer] Secondary Insurance: none Prescription Coverage: yes, per patient no issues Preferred Pharmacy: ?? Other: none Primary Care Provider: Deborah Quiroga, LEADED GLASS INSTALLER [phone] Patient/Caregiver Goals of Treatment: per medical team recommendations at discharge for CT surgery Potential Needs for Transition of Care: Rehab/SNF: TBD Home Health: TBD DME: no Dialysis: no Community Resources: non3 Transportation: ride home with a friend Other: none Anticipated Barriers to Discharge/Special Considerations: none anticipated at this time Plan: patient will need VNA services at discharge. The patient/senior sales representative has been provided a list of Home Health Agencies/DME vendors which servetheir preferred geographic area. A letter describing our affiliations was reviewed with them and they were educated about their right to choose where referrals are placed. Patient requests referral to: [facility] [employer]. PHONE: [phone] FAX: [phone] Expected date of discharge: Fri/Sat? CM called VNA to confirm referral, talked with VALDO Bunn/intake who stated she was familiar w/patient & would monitor her progress through curaspan. Referral routed to the Rnp for matching with agency/vendor and to provide any required information. A member of the Care Management team will continue to monitor progress, follow for continuity of care and assist with transition of care planning. Amanda Moreno RN Pager: [phone] * Op Note - Alirio Esparza MD - 09/21/2016 12:53 PM EST 09/23/2016 Purnima Thacker 1955 [id number] Preoperative Diagnosis: Symptomatic aortic stenosis Postoperative Diagnosis: Symptomatic aortic stenosis Procedure: Aortic valve replacement: Bovine Pericardial 25 mm Surgeon: Alirio Esparza M.D. Healthcare Technician: Philip BALL Anesthesia: General endotracheal anesthesia [...] applied. The patient was transported to the [facility] on levo. All counts were correct. [...] Operative Note Patient Name: Purnima Thacker : [id number] MR#: [id number] Case Date: 09/21/2016 Surgeon: Surgeon(s) and Role: * Alirio Esparza MD - Primary * Nico Palacios PA - Physician Healthcare Technician Preoperative diagnosis: Postoperative diagnosis: Procedure(s) (LRB): [...] PM EDT Office Visit Derm[place]ology at [place] [address] [place] [address] Marek Bonilla MD [address], [place] [address] Scheduled Orders Name Type Priority Associated Diagnoses [...] IMPLANTABLE DEVICES SCAN 09/26/2016 12:00 AM EST DYE PADDER OPERATOR SCAN 09/26/2016 12:00 AM EST POTASSIUM [...] SCAN EXT O RDR/RSLT * SCAN DOC: DYE PADDER OPERATOR (09/26/2016 12:00 AM EST) Anatomical Region Laterality Modality Other Narrative 09/26/2016 12:00 AM EST Ordered by an unspecified provider. Scanning Provider MEDIA MGR SCAN EXT O RDR/RSLT * Potassium (09/25/2016 4:32 AM EST) Potassium 4.4 3.5 - 5.0 mmol/L [facility] [...] MD CHEMISTRY ORDERABLE S Performing Organization Address [facility] Co de Phone Number [facility] [place] [address] * (ABNORMAL) Differential, Automated (09/24/2016 9:56 AM EST) Neutrophil % 76.8 % [facility] Neutrophil Absolute 7.79(H) 1.70 - 6.10 x10(3)/mc L [facility] Lymph % 11.1 % [facility] Lymphocytes Abs 1.1 0.9 - 3.2 x10(3)/mc L [facility] Monocyte % 8.5 % [facility] Monocyte Abs 0.9 0.3 - 0.9 x10(3)/mc L [facility] Eos % 0.5 % [facility] Eosinophils Abs 0.0 0.0 - 0.4 x10(3)/mc L [facility] Basophil % 0.2 % [facility] Baso Absolute 0.0 0.0 - 0.1 x10(3)/mc L [facility] Immature Gran % 2.90 % [facility] [...] Absolute 0.29(H) 0.00 - 0.04 x10(3)/mc L [facility] Blood specimen (specimen) 09/24/2016 9:56 AM EST 09/24/2016 10:04 AM EST Narrative Resulting Agency Comment Spec In Lab Alirio Esparza MD HEMATOLOGY ORDERABL ES Performing Organization Address [facility]/ZIP Co de Phone Number [facility] [place] [address] * (ABNORMAL) Hemogram (09/24/2016 9:56 AM EST) White Blood Cell 10.1(H) 4.0 - 9.5 x10(3)/mc L [facility] Red Blood Cell 2.87(L) 4.00 - 5.21 x10(6)/mc L [facility] Hemoglobin 9.4(L) 11.7 - 15.5 gm/dL [facility] Hematocrit 28.3(L) 35.7 - 45.8 % [facility] Mean Cell Volume 98.6(H) 82.6 - 94.4 fL [facility] Mean Cell Hemoglobin 32.8(H) 27.1 - 32.0 pg [facility] Mean Cell Hemoglobin Concentration 33.2 31.7 - 35.0 gm/dL [facility] Platelet 141(L) 145 - 357 x10(3)/mc L [facility] RDW Standard Deviation 45.0 37.0 - 46.0 [facility] RDW coefficient of variation 12.6 11.5 - 14.1 % [facility] Mean Platelet Volume 9.4 7.6 - 12.9 fL [facility] NRBC% auto 1.1 % [facility] NRBC Absolute 0.110(H) 0.000 - 0.000 x10(3)/mc L [facility] Blood specimen (specimen) 09/24/2016 9:56 AM EST 09/24/2016 10:04 AM EST Narrative Resulting Agency Comment Spec In Lab Alirio Esparza MD HEMATOLOGY ORDERABL ES Performing Organization Address City/[facility]/ZIP Co de Phone Number [facility] [place] [address] * (ABNORMAL) Basic Metabolic Panel (non-fasting) (09/24/2016 9:56 AM EST) Glucose 111 65 - 199 mg/dL [facility] Comment:Diabetes: >=200 mg/d L plus symptoms Blood Urea Nitrogen 23(H) 8 - 18 mg/dL [facility] Carbon Dioxide 26 22 - 31 mmol/L [facility] [...] the following links into your internet browser. [email or web address] Blood specimen (specimen) 09/24/2016 9:56 AM EST 09/24/2016 10:04 AM EST Narrative Resulting Agency Comment Spec In Lab Alirio Esparza MD CHEMISTRY ORDERABLE S [facility] [place] [address] * XR Chest PA & Lateral (Generic) [...] MD CHEMISTRY ORDERABLE S Performing Organization Address [facility]/ZIP Co de Phone Number [facility] [place] [address] * POCT Glucose (09/22/2016 8:17 AM EST) Glucose, POC 131 65 - 199 mg/dL [facility] Comment: Supplemental ranges: <140 mg/dL before meals <180 mg/dL all other times of the day Blood specimen (specimen) 09/22/2016 8:17 AM EST 09/22/2016 8:17 AM EST Alirio Esparza MD POINT OF CARE TEST ORDERABLES Performing Organization Address [facility] Co de Phone Number [facility] [place] [address] * POCT Glucose (09/22/2016 4:01 AM EST) Glucose, POC 135 65 - 199 mg/dL [facility] Comment: Supplemental ranges: <140 mg/dL before meals <180 mg/dL all other times of the day Blood specimen (specimen) 09/22/2016 4:01 AM EST 09/22/2016 4:01 AM EST Alirio Esparza MD POINT OF CARE TEST ORDERABLES Performing Organization Address [facility] Co de Phone Number [facility] [place] [address] * Scan, Peripheral Blood (09/22/2016 4:00 AM EST) Plat estimate Normal [facility] RBC Morphology Abnormal [facility] Macrocyte 1-5 /HPF [facility] Plat, Giant Less than 1 /HPF [facility] Blood specimen (specimen) 09/22/2016 4:00 AM EST 09/22/2016 4:34 AM EST Narrative Resulting Agency Comment Spec In Lab Alirio Esparza MD HEMATOLOGY ORDERABL ES Performing Organization Address [facility]/ZIP Co de Phone Number [facility] [place] [address] * Electrolytes panel (09/22/2016 4:00 AM EST) Pathologist [facility] Sodium 145 135 - 145 mmol/L [facility] Carbon Dioxide 24 22 - 31 mmol/L [facility] Anion Gap 14 5 - 15 mmol/L [facility] Blood specimen (specimen) Venous Draw / Unknown 09/22/2016 4:00 AM EST 09/22/2016 4:34 AM EST Narrative Resulting Agency Comment Spec In Lab Alirio Esparza MD CHEMISTRY ORDERABLE S Performing Organization Address [facility]/ZIP Co de Phone Number [facility] [place] [address] * (ABNORMAL) Differential, Automated (09/22/2016 4:00 AM EST) Pathologist [facility] Neutrophil % 70.9 % [facility] Neutrophil Absolute 5.33 1.70 - 6.10 x10(3)/mc L [facility] Lymph % 9.1 % [facility] Lymphocytes Abs 0.7(L) 0.9 - 3.2 x10(3)/mc L [facility] Monocyte % 18.0 % [facility] Monocyte Abs 1.4(H) 0.3 - 0.9 x10(3)/mc L [facility] Eos % 0.0 % [facility] Eosinophils Abs 0.0 0.0 - 0.4 x10(3)/ L [facility] Basophil % 0.1 % [facility] Baso Absolute 0.0 0.0 - 0.1 x10(3)/ L [facility] [...] Immature Gran Absolute 0.14(H) 0.00 - 0.04 x10(3)/[facility] Blood specimen (specimen) 09/22/2016 4:00 AM EST 09/22/2016 4:34 AM EST Narrative Resulting Agency Comment Spec In Lab Alirio Esparza MD HEMATOLOGY ORDERABL ES Performing Organization Address City/State/[facility] Co de Phone Number [facility] [place] [id number] * (ABNORMAL) Hemogram (09/22/2016 4:00 AM EST) White Blood Cell 7.5 4.0 - 9.5 x10(3)/ L [facility] Red Blood Cell 2.93(L) 4.00 - 5.21 x10(6)/ L [facility] Hemoglobin 9.2(L) 11.7 - 15.5 gm/dL [facility] Hematocrit 28.0(L) 35.7 - 45.8 % [facility] Mean Cell Volume 95.6(H) 82.6 - 94.4 fL [facility] Mean Cell Hemoglobin 31.4 27.1 - 32.0 pg [facility] Mean Cell Hemoglobin Concentration 32.9 31.7 - 35.0 gm/dL [facility] Platelet 161 145 - 357 x10(3)/ L [facility] RDW Standard Deviation 44.0 37.0 - 46.0 fL [facility] RDW coefficient of variation 12.6 11.5 - 14.1 % [facility] Mean Platelet Volume 9.3 7.6 - 12.9 fL [facility] NRBC% auto 0.3 % [facility] NRBC Absolute 0.020(H) 0.000 - 0.000 x10(3)/mc L [facility] Blood specimen (specimen) 09/22/2016 4:00 AM EST 09/22/2016 4:34 AM EST Narrative Resulting Agency Comment Spec In Lab Alirio Esparza MD HEMATOLOGY ORDERABL ES [facility] [place] [id number] * (ABNORMAL) Cardiac Enzymes (09/22/2016 4:00 AM EST) Troponin-T 0.13(H) <=0.03 ng/mL [facility] Creatine Kinase 338(H) 0 - 160 unit/L [facility] Blood specimen (specimen) 09/22/2016 4:00 AM EST 09/22/2016 4:34 AM EST Narrative Resulting Agency Comment Spec In Lab Alirio Esparza MD CHEMISTRY ORDERABLE S Performing Organization Address [facility] Co de Phone Number [facility] [place] [address] * (ABNORMAL) Glucose, fasting (09/22/2016 4:00 AM [...] MD CHEMISTRY ORDERABLE S Performing Organization Address [facility] Co de Phone Number [facility] [place] [address] * (ABNORMAL) Creatinine (09/22/2016 4:00 AM EST) [...] the following links into your internet browser. [email or web address] Blood specimen (specimen) 09/22/2016 4:00 AM EST 09/22/2016 4:34 AM EST Narrative Resulting Agency Comment Spec In Lab Alirio Esparza MD CHEMISTRY ORDERABLE S Performing Organization Address [facility] Co de Phone Number [facility] [place] [address] * BUN (09/22/2016 4:00 AM EST) Blood Urea Nitrogen 10 8 - 18 mg/dL [facility] Blood specimen (specimen) 09/22/2016 4:00 AM EST 09/22/2016 4:34 AM EST Narrative Resulting Agency Comment Spec In Lab Alirio Esparza MD CHEMISTRY ORDERABLE S Performing Organization Address [facility] Co de Phone Number [facility] [place] [address] * POCT Glucose (09/21/2016 9:59 PM EST) Glucose, POC 146 65 - 199 mg/dL [facility] Comment: Supplemental ranges: <140 mg/dL before meals <180 mg/dL all other times of the day Blood specimen (specimen) 09/21/2016 9:59 PM EST 09/21/2016 9:59 PM EST Alirio Esparza MD POINT OF CARE TEST ORDERABLES Performing Organization Address City/[facility] Co de Phone Number [facility] [place] [address] * POCT Glucose (09/21/2016 7:26 PM EST) [facility] Glucose, POC 152 65 - 199 mg/dL [facility] Comment: Supplemental ranges: <140 mg/dL before meals <180 mg/dL all other times of the day Blood specimen (specimen) 09/21/2016 7:26 PM EST 09/21/2016 7:26 PM EST Alirio Esparza MD POINT OF CARE TEST ORDERABLES [facility] [place] [address] * POCT Glucose (09/21/2016 6:00 PM EST) [facility] Glucose, POC 146 65 - 199 mg/dL [facility] Comment: Supplemental ranges: <140 mg/dL before meals <180 mg/dL all other times of the day Blood specimen (specimen) 09/21/2016 6:00 PM EST 09/21/2016 6:00 PM EST Alirio Esparza MD POINT OF CARE TEST ORDERABLES [facility] [place] [address] * (ABNORMAL) BLOOD GAS 2 ARTERIAL (09/21/2016 4:42 PM EST) [facility] pH, Arterial 7.35(L) 7.35 - 7.45 [facility] PCO2, Arterial 48(H) 35 - 45 mmHg [facility] PO2, Arterial 108(H) 85 - 104 mmHg [facility] Bicarbonate, Arterial 26.0 20.0 - 26.0 mmol/L [facility] Base Excess, Arterial 0.5 -3.0 - 3.0 mmol/L [facility] Hgb Blood Gas 10.4(L) 11.7 - 15.5 gm/dL [facility] Oxyhemoglobin, Arterial 96.2 94.0 - 97.0 % [facility] Carboxyhemoglob in, Arterial 0.0 % [facility] Comment: Nonsmokers: 0.5-1.5% COHB Smokers: Variable, but usually less than 10% Toxic: 20-30% COHB Lethal: Greater than 60% COHB Methemoglobin, Arterial 0.7 <=1.5 % [facility] Na Whole Blood [...] [facility] PF Ratio Art 270 [facility] Blood specimen (specimen) 09/21/2016 4:42 PM EST 09/21/2016 4:42 PM EST Alirio Esparza MD POINT OF CARE TEST ORDERABLES [facility] [place] [address] * POCT Glucose (09/21/2016 4:07 PM EST) Glucose, POC 150 65 - 199 mg/dL [facility] Comment: Supplemental ranges: <140 mg/dL before meals <180 mg/dL all other times of the day Blood specimen (specimen) 09/21/2016 4:07 PM EST 09/21/2016 4:07 PM EST Alirio Esparza MD POINT OF CARE TEST ORDERABLES Performing Organization Address [facility] Co de Phone Number [facility] [place] [address] * (ABNORMAL) Hemoglobin (09/21/2016 4:05 PM EST) Hemoglobin 9.9(L) 11.7 - 15.5 gm/dL [facility] Blood specimen (specimen) 09/21/2016 4:05 PM EST 09/21/2016 4:20 PM EST Narrative Resulting Agency Comment Spec In Lab Alirio Esparza MD HEMATOLOGY ORDERABL ES Performing Organization Address [facility] Co de Phone Number [facility] [place] [address] * Potassium (09/21/2016 4:05 PM EST) [facility] Potassium 4.6 3.5 - 5.0 mmol/L [facility] [...] MD CHEMISTRY ORDERABLE S Performing Organization Address [facility] Co de Phone Number [facility] [place] [address] * POCT Glucose (09/21/2016 2:52 PM EST) Glucose, POC 117 65 - 199 mg/dL [facility] Comment: Supplemental ranges: <140 mg/dL before meals <180 mg/dL all other times of the day Blood specimen (specimen) 09/21/2016 2:52 PM EST 09/21/2016 2:52 PM EST Alirio Esparza MD POINT OF CARE TEST ORDERABLES Performing Organization Address [facility] Co de Phone Number [facility] [place] [address] * POCT Glucose (09/21/2016 1:51 PM EST) Glucose, POC 108 65 - 199 mg/dL [facility] Comment: Supplemental ranges: <140 mg/dL before meals <180 mg/dL all other times of the day Blood specimen (specimen) 09/21/2016 1:51 PM EST 09/21/2016 1:51 PM EST Alirio Esparza MD POINT OF CARE TEST ORDERABLES Performing Organization Address [facility] de Phone Number [facility] [place] [address] * POCT Glucose (09/21/2016 12:54 PM EST) Glucose, POC 128 65 - 199 mg/dL [facility] Comment: Supplemental ranges: <140 mg/dL before meals <180 mg/dL all other times of the day Blood specimen (specimen) 09/21/2016 12:54 PM EST 09/21/2016 12:54 PM EST Alirio Esparza MD POINT OF CARE TEST ORDERABLES Performing Organization Address [facility] Co de Phone Number [facility] [place] [address] * EKG 12 Lead (09/21/2016 12:26 PM EST) Ventricular rate 87 BPM MUSE SYSTEM Atrial Rate 87 BPM MUSE SYSTEM P-R Interval 256 ms MUSE SYSTEM QRS Duration 90 ms MUSE SYSTEM Q-T Interval 406 ms MUSE SYSTEM QTC Calculated (Bezet) 488 ms MUSE SYSTEM Calculated P Bethesda 24 degrees MUSE SYSTEM Calculated R [place]da 21 degrees MUSE SYSTEM Calculated T Bethesda -5 degrees MUSE SYSTEM INTERPRETATION Sinus rhythm [...] course of the esophagus and below the [id number]. There is a right IJ PA catheter [...] the course of theesophagus and below the [id number]. There is a right IJ PA catheter [...] EST) pH, Arterial 7.41 7.35 - 7.45 [facility] PCO2, Arterial 42 35 - 45 mmHg [facility] PO2, Arterial 356(H) 85 - 104 mmHg [facility] Bicarbonate, Arterial 26.2(H) 20.0 - 26.0 mmol/L [facility] Base Excess, Arterial 1.6 -3.0 - 3.0 mmol/L [facility] Hgb Blood Gas 10.7(L) 11.7 - 15.5 gm/dL [facility] Oxyhemoglobin, Arterial 98.1(H) 94.0 - 97.0 % [facility] Carboxyhemoglob in, Arterial 0.3 % [facility] Comment: Nonsmokers: 0.5-1.5% COHB Smokers: Variable, but usually less than 10% Toxic: 20-30% COHB Lethal: Greater than 60% COHB Methemoglobin, Arterial 0.8 <=1.5 % [facility] Na Whole Blood [...] [facility]ENTER [facility] PF Ratio Art 356 [facility] Blood specimen (specimen) 09/21/2016 12:20 PM EST 09/21/2016 12:20 PM EST Alirio Esparza MD POINT OF CARE TEST ORDERABLES Performing Organization Address City/State/[facility] Co de Phone Number [facility] [place] [address] * (ABNORMAL) BLOOD GAS 2 ARTERIAL (09/21/2016 10:54 AM EST) pH, Arterial 7.43 7.35 - 7.45 [facility] PCO2, Arterial 40 35 - 45 mmHg [facility] PO2, Arterial 297(H) 85 - 104 mmHg [facility] Bicarbonate, Arterial 26.0 20.0 - 26.0 mmol/L [facility] Base Excess, Arterial 1.6 -3.0 - 3.0 mmol/L [facility] Hgb Blood Gas 8.6(L) 11.7 - 15.5 gm/dL [facility] Oxyhemoglobin, Arterial 98.6(H) 94.0 - 97.0 % [facility] Carboxyhemoglob in, Arterial 0.5 % [facility] Comment: Nonsmokers: 0.5-1.5% COHB Smokers: Variable, but usually less than 10% Toxic: 20-30% COHB Lethal: Greater than 60% COHB Methemoglobin, Arterial 0.3 <=1.5 % [facility] Na Whole Blood [...] [facility]ENTER [facility] PF Ratio Art 313 [facility] Temp Art 36.7 Celsius [facility] Blood specimen (specimen) 09/21/2016 10:54 AM EST 09/21/2016 10:54 AM EST Alirio Esparza MD POINT OF CARE TEST ORDERABLES Performing Organization Address [facility] Co de Phone Number [facility] [place] [address] * Thrombin time (09/21/2016 10:50 AM EST) [...] MD HEMATOLOGY ORDERABLE S Performing Organization Address [facility]/ZIP Co de Phone Number [facility] [place] [address] * Fibrinogen (09/21/2016 10:50 AM EST) Fibrinogen [...] MD HEMATOLOGY ORDERABLE S Performing Organization Address [facility] de Phone Number [facility] [place] [address] * APTT (09/21/2016 10:50 AM EST) Partial Thromboplastin Time 32 25 - 35 sec [facility] Comment: The recommended therapeutic range for full dose, unfractionated heparin at [facility] is 80 ? 114 seconds. The use of the anti-Xa (heparin) level rather than the PTT is recommended for monitoring anticoagulation intensity in critically ill patients receiving unfractionated heparin by continuous IV infusion. Blood specimen (specimen) 09/21/2016 10:50 AM EST 09/21/2016 10:56 AM EST Narrative Resulting Agency Comment Spec In Lab Luis Enrique Quarles MD HEMATOLOGY ORDERABLE S Performing Organization Address [facility] de Phone Number [facility] [place] [address] * (ABNORMAL) Prothrombin Time (09/21/2016 10:50 AM EST) Prothrombin Time 18.7(H) 12.0 - 15.0 sec [facility] [...] International Normalization Ratio 1.5(H) 0.9 - 1.1 [facility] Blood specimen (specimen) 09/21/2016 10:50 AM EST 09/21/2016 10:56 AM EST Narrative Resulting Agency Comment Spec In Lab Luis Enrique Quarles MD HEMATOLOGY ORDERABLE S [facility] [place] [address] * (ABNORMAL) Hemogram (09/21/2016 10:50 AM EST) White Blood Cell 14.7(H) 4.0 - 9.5 x10(3)/mc L [facility] Red Blood Cell 2.40(L) 4.00 - 5.21 x10(6)/mc L [facility] Hemoglobin 7.9(L) 11.7 - 15.5 gm/dL [facility] Hematocrit 23.2(L) 35.7 - 45.8 % [facility] Comment: This result has been called to MICHELLE GRIGSBY by ASHU MORENO on 09 21 2016 at 1102, and has been read back. Mean Cell Volume 96.7(H) 82.6 - 94.4 fL [facility] Mean Cell Hemoglobin 32.9(H) 27.1 - 32.0 pg [facility] Mean Cell Hemoglobin Concentration 34.1 31.7 - 35.0 gm/dL [facility] Platelet 117(L) 145 - 357 x10(3)/mc L [facility] RDW Standard Deviation 42.6 37.0 - 46.0 fL [facility] RDW coefficient of variation 12.1 11.5 - 14.1 % [facility] Mean Platelet Volume 9.2 7.6 - 12.9 fL [facility] NRBC% auto 0.1 % [facility] NRBC Absolute 0.020(H) 0.000 - 0.000 x10(3)/mc L [facility] Blood specimen (specimen) 09/21/2016 10:50 AM EST 09/21/2016 10:56 AM EST Narrative Resulting Agency Comment Spec In Lab Luis Enrique Quarles MD HEMATOLOGY ORDERABLE S Performing Organization Address [facility]/[place] [address] * Prepare Platelets, Apheresis (09/21/2016 10:30 AM EST) Pathologist [facility] Dispensed? Yes [facility] Blood specimen (specimen) 09/21/2016 10:30 AM EST 09/21/2016 10:28 AM EST Alirio Esparza MD BLOOD BANK PRODUCT ORDERABLES Performing Organization Address [facility] [place] [address] * (ABNORMAL) BLOOD GAS 2 ARTERIAL (09/21/2016 10:05 AM EST) pH, Arterial 7.33(L) 7.35 - 7.45 [facility] PCO2, Arterial 54(Critic al) 35 - 45 mmHg [facility] Comment:Noted by instrumentation designer. PO2, Arterial 218(H) 85 - 104 mmHg [facility] Bicarbonate, Arterial 27.9(H) 20.0 - 26.0 mmol/L [facility] Base Excess, Arterial 2.0 -3.0 - 3.0 mmol/L [facility] Hgb Blood Gas 8.6(L) 11.7 - 15.5 gm/dL [facility] Oxyhemoglobin, Arterial 98.4(H) 94.0 - 97.0 % [facility] Carboxyhemoglo bin, Arterial 0.5 % [facility] Comment: Nonsmokers: 0.5-1.5% COHB Smokers: Variable, but usually less than 10% Toxic: 20-30% COHB Lethal: Greater than 60% COHB Methemoglobin, Arterial 0.3 <=1.5 % [facility] Na Whole Blood 129(L) 135 - 145 mmol/L [facility] K Whole Blood 6.2(Criti gabrielle) 3.5 - 5.0 mmol/L [facility] Comment: Noted by instrumentation designer. Please note: Patients with WBC >100,000 may [...] ORDERABLES [facility] [place] [address] * (ABNORMAL) BLOOD GAS 2 ARTERIAL (09/21/2016 9:44 AM EST) pH, Arterial 7.22(Criti gabrielle) 7.35 - 7.45 [facility] Comment:Noted by instrumentation designer. PCO2, Arterial 70(Critica l) 35 - 45 mmHg [facility] Comment:Noted by instrumentation designer. PO2, Arterial 224(H) 85 - 104 mmHg [facility] Bicarbonate, Arterial 27.8(H) 20.0 - 26.0 mmol/L [facility] Base Excess, Arterial 0.0 -3.0 - 3.0 mmol/L [facility] Hgb Blood Gas 8.7(L) 11.7 - 15.5 gm/dL [facility] Oxyhemoglobin, Arterial 98.5(H) 94.0 - 97.0 % [facility] Carboxyhemoglob in, Arterial 0.6 % [facility] Comment: Nonsmokers: 0.5-1.5% COHB Smokers: Variable, but usually less than 10% Toxic: 20-30% COHB Lethal: Greater than 60% COHB Methemoglobin, Arterial 0.3 <=1.5 % [facility] Na Whole Blood [...] ORDERABLES [facility] [place] [address] * (ABNORMAL) Hemoglobin (09/21/2016 9:42 AM EST) Hemoglobin 7.2(L) 11.7 - 15.5 gm/dL [facility] Blood specimen (specimen) 09/21/2016 9:42 AM EST 09/21/2016 9:51 AM EST Narrative Resulting Agency Comment Spec In Lab Alirio Esparza MD HEMATOLOGY ORDERABL ES [facility] [place] [address] * Platelet count (09/21/2016 9:42 AM EST) Platelet 159 145 - 357 x10(3)/mc L [facility] Immature Plt % 1.6 0.0 - 7.4 % [facility] Comment: Limitation of the Immature Platelet Fraction (IPF)-May be less reliable when the platelet count is less than 21d569/uL due to statistical imprecision. The IPF value [...] in a decreased state of production. References: [employer] The Clinical Value of the Immature Platelet Fraction (IPF) in Cell Recovery Document Number [id number] 12/2010 [employer] The Role of the Immature Platelet Fraction (IPF) in the Differential Diagnosis of Thrombocytopenia, Document [id number] [id number] Blood specimen (specimen) 09/21/2016 9:42 AM EST 09/21/2016 9:51 AM EST Narrative Resulting Agency Comment Spec In Lab Alirio Esparza MD HEMATOLOGY ORDERABL ES [facility] [place] [address] * (ABNORMAL) Hematocrit (09/21/2016 9:42 AM EST) [...] MD HEMATOLOGY ORDERABL ES Performing Organization Address [facility] de Phone Number [facility] [place] [address] * Fibrinogen (09/21/2016 9:42 AM EST) Fibrinogen [...] MD HEMATOLOGY ORDERABL ES Performing Organization Address [facility] de Phone Number [facility] [place] [address] * (ABNORMAL) BLOOD GAS 2 ARTERIAL (09/21/2016 9:10 AM EST) pH, Arterial 7.36 7.35 - 7.45 [facility] PCO2, Arterial 48(H) 35 - 45 mmHg [facility] PO2, Arterial 295(H) 85 - 104 mmHg [facility] Bicarbonate, Arterial 26.0 20.0 - 26.0 mmol/L [facility] Base Excess, Arterial 0.5 -3.0 - 3.0 mmol/L [facility] Hgb Blood Gas 8.0(L) 11.7 - 15.5 gm/dL [facility] Oxyhemoglobin, Arterial 98.3(H) 94.0 - 97.0 % [facility] Carboxyhemoglob in, Arterial 1.0 % [facility] Comment: Nonsmokers: 0.5-1.5% COHB Smokers: Variable, but usually less than 10% Toxic: 20-30% COHB Lethal: Greater than 60% COHB Methemoglobin, Arterial 0.3 <=1.5 % [facility] Na Whole Blood [...] OF CARE TEST ORDERABLES Performing Organization Address City/State/[facility] Co de Phone Number [facility] [place] [address] * Surgical Pathology Report (09/21/2016 9:09 AM EST) Final Diagnosis [id number] ?Location: 3T The signing pathologist has (i) [...] Esparza MD PATHOLOGY/CYTOLOGY ORDERABLES Performing Organization Address City/[facility] Co de Phone Number [facility] [place] [address] * Specimen to Pathology (surgical or derm) (09/21/2016 9:09 AM EST) AP Specimen 09/21/2016 9:09 AM EST 09/21/2016 9:09 AM EST Narrative [facility] - 09/21/2016 9:09 AM EST Specimen requisition ordered. ??Separate Pathology report to follow Alirio Esparza MD PATHOLOGY/CYTOLOGY ORDERABLES Performing Organization Address [facility]/ZIP Co de Phone Number [facility] [place] [address] * (ABNORMAL) BLOOD GAS 2 ARTERIAL (09/21/2016 8:50 AM EST) pH, Arterial 7.41 7.35 - 7.45 [facility] PCO2, Arterial 33(L) 35 - 45 mmHg [facility] PO2, Arterial 348(H) 85 - 104 mmHg [facility] Bicarbonate, Arterial 20.6 20.0 - 26.0 mmol/L [facility] Base Excess, Arterial -4.1(L) -3.0 - 3.0 mmol/L [facility] Hgb Blood Gas 9.5(L) 11.7 - 15.5 gm/dL [facility] Oxyhemoglobin, Arterial 98.8(H) 94.0 - 97.0 % [facility] Carboxyhemoglob in, Arterial 0.3 % [facility] Comment: Nonsmokers: 0.5-1.5% COHB Smokers: Variable, but usually less than 10% Toxic: 20-30% COHB Lethal: Greater than 60% COHB Methemoglobin, Arterial 0.3 <=1.5 % [facility] Na Whole Blood [...] ORDERABLES [facility] [place] [address] * (ABNORMAL) BLOOD GAS 2 ARTERIAL (09/21/2016 8:18 AM EST) pH, Arterial 7.42 7.35 - 7.45 [facility] PCO2, Arterial 36 35 - 45 mmHg [facility] PO2, Arterial 283(H) 85 - 104 mmHg [facility] Bicarbonate, Arterial 22.8 20.0 - 26.0 mmol/L [facility] Base Excess, Arterial -2.0 -3.0 - 3.0 mmol/L [facility] Hgb Blood Gas 12.6 11.7 - 15.5 gm/dL [facility] Oxyhemoglobin, Arterial 99.0(H) 94.0 - 97.0 % [facility] Carboxyhemoglob in, Arterial 0.6 % [facility] Comment: Nonsmokers: 0.5-1.5% COHB Smokers: Variable, but usually less than 10% Toxic: 20-30% COHB Lethal: Greater than 60% COHB Methemoglobin, Arterial 0.0 <=1.5 % [facility] Na Whole Blood [...] [facility]ENTER [facility] PF Ratio Art 298 [facility] Temp Art 35.6 Celsius [facility] Blood specimen (specimen) 09/21/2016 8:18 AM EST 09/21/2016 8:18 AM EST Alirio Esparza MD POINT OF CARE TEST ORDERABLES Performing Organization Address [facility] Co de Phone Number [facility] [place] [address] * Prepare RBC (09/21/2016 7:05 AM EST) Dispensed? Yes [facility] Blood specimen (specimen) 09/21/2016 7:05 AM EST 09/21/2016 7:02 AM EST Alirio Esparza MD BLOOD BANK PRODUCT ORDERABLES Performing Organization Address [facility] Co de Phone Number [facility] [place] [address] * POCT Glucose (09/21/2016 6:42 AM EST) Glucose, POC 104 65 - 199 mg/dL [facility] Comment: Supplemental ranges: <140 mg/dL before meals <180 mg/dL all other times of the day Blood specimen (specimen) 09/21/2016 6:42 AM EST 09/21/2016 6:42 AM EST Alirio Esparza MD POINT OF CARE TEST ORDERABLES Performing Organization Address [facility] de Phone Number [facility] [place] [address] documented in this encounter Visit Diagnoses Not [...] dose on Wed09/21/16 at 1230, Until Discontinued, Liscomb teeth, Routine Given 09/25/2016 9:40 AM EST [...] dose on Wed09/21/16 at 1230, Until Discontinued, Liscomb teeth, Routine 0900 (Not Given - Provider: [...] Routine documented in this encounter Care Teams [employer] Operator Relationship Specialty Start Date End Date Deborah Quiroga APRN PCP - General Family Medicine 03/24/16 02/04/23 documented as of this encounter
--- OUTSIDE RECORDS SUMMARY | 2024-04-04 14:19 | XMS_ITS | Encounter Summary ---
[place] [address] Care Team Providers Care Campus Rep Name Role Phone JunaidDeborah APRN Primary Care Provider [phone] Reason for Visit * Reason Onset Date Comments Labs Only 09/16/2016 Encounter Details Date Type Department Care Team (Late st Contact Info) Description 09/16/2016 Telephone Hematology [place] [address] Alexandrea Greenwood, RN Labs Only Social History [...] 09/16/2016 11:09 AM EST Message received from legal secretary: Purnima is having her Neulasta done today at [facility]. ??She is wondering if we want to do a CBC prior to the injection? [phone] Borjas: CBC is fine RN spoke with Swapna at [facility] who confirms they can draw CBC on pt today, RN faxed CBC w/diff to [facility] lab at [phone] RN relayed to pt that CBC ordered had been faxed to [facility], pt will have CBC drawn today prior to neulasta injection. documented in this encounter Plan of Treatment Upcoming Encounters Date Type Department Care Team (Late st Contact Info) Description 03/01/2025 4:15 PM EDT Office Visit Dermatology at [place] [address] [place] [address] Marek Bonilla MD [address] [place] [address] documented as of this encounter Results * [...] type documented in this encounter Care Teams Campus Rep Relationship Specialty Start Date End Date Deborah Quiroga APRN PCP - General Family Medicine 03/24/16 02/04/23 documented as of this encounter
--- OUTSIDE RECORDS SUMMARY | 2024-04-04 14:19 | XMS_ITS | Encounter Summary ---
[place] [address] Care Team Providers Care Dependency Director Name Role Phone Deborah Quiroga ANURAG Primary Care Provider [phone] Encounter Details Date Type Department Care Team (Late st Contact Info) Description 09/11/2016 Orders Only Hematology [place] [address] Alexandrea Greenwood RN Social History [...] the original note were not included. N [facility] HEM ONC [facility] [phone] Date: 09/11/16 Patient Name: Purnima Thacker : 1955 Diagnosis: Neutropenia Referral to [site]: [facility] Orders: ? Growth factor: [x] Neulasta 6mg SQ injection x 1 on 09/16/16 Signature: Markel Borjas MD beeper # [id number] Co-signature [if needed]: documented in this encounter Plan of Treatment Upcoming Encounters Date Type Department Care Team (Late st Contact Info) Description 03/01/2025 4:15 PM EDT Office Visit Dermatology at [place] [address] [place] [address] Marek Bonilla MD [address], [address] [place] [address] documented as of this encounter Procedures Procedure Name Priority Date/Time Associated Diagnosis Comments TRANSESOPHAGEAL ECHOCARDIOGRAM (GAVINO) Routine 09/22/2016 documented in this encounter Results * Transesophageal Echocardiogram (GAVINO) (09/22/2016) Anatomical Region Laterality Modality Other 09/22/2016 Narrative 09/22/2016 8:30 AM EST Procedure: ?Transesophageal Echocardiogram Patient: ?ANDREW ECHOLS M ? (Age): 1955(61y) Med Rec#: ? [id number] ?Sex: ?M ? Site Loc: ? [facility] [place] [facility] ?Ht / Wt: ??(cm)/ (kg) ? Pt. Loc: ?OR ? Study Date: ?? 09/21/2016 ?Pt. Type: Tape: ? 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 AVR for severe Rhythm: ? [...] ? Mid-Inferior ?Normal ? Mid-Inferoseptal ?Normal ? [place]-Septal ? Normal ? [place]-Anterior ? Normal ? [place]-Lateral ?Normal ? [place]-Inferior ? Normal ? [place]-Tip ?Normal ? This report has been electronically signed by: Henrik Yarbrough M.D. ? 09/22/2016 08:30:41 Images reviewed and interpretation verified [facility] Procedure Note Henrik Yarbrough MD - 09/22/2016 Procedure: Transesophageal Echocardiogram Patient: ANDREW Mejias (Age): 1955(61y) Med Rec#: [id number] Sex: M Site Loc: [facility] Ht / Wt: (cm)/ (kg) Pt. Loc: OR Study Date: 09/21/2016 Pt. 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 09/22/2016 08:30:41 Images reviewed and interpretation verified [facility] Unknown ECHO ORDERABLES documented in this encounter Visit Diagnoses Not on filedocumented in this encounter Care Teams Dependency Director Relationship Specialty Start Date End Date Deborah Quiroga APRN PCP - General Family Medicine 03/24/16 02/04/23 documented as of this encounter
--- OUTSIDE RECORDS SUMMARY | 2024-04-04 14:19 | XMS_ITS | Encounter Summary ---
[place] [address] Care Team Providers Care Overlock Waistline Joiner Name Role Phone Ashley Quirogan Cornelius ANURAG Primary Care Provider [phone] Reason for Visit * Reason Onset Date Comments Medication Management 09/14/2016 Encounter Details Date Type Department Care Team (Late st Contact Info) Description 09/14/2016 Telephone Hematology [place] [address] Alexandrea Greenwood, marine engineer Management Social History Tobacco Use Types Packs/Day [...] 09/14/2016 9:12 AM EST Message received from department secretary: Purnima called, asking for clarification on [...] 4:15 PM EDT Office Visit Dermatology at [place] [address] [place] [address] Marek Bonilla MD [address], [place] [address] documented as of this encounter Visit Diagnoses Not on filedocumented in this encounter Care Teams Overlock Waistline Joiner Relationship Specialty Start Date End Date Deborah Quiroga APRN PCP - General Family Medicine 03/24/16 02/04/23 documented as of this encounter
--- OUTSIDE RECORDS SUMMARY | 2024-04-04 14:19 | XMS_ITS | Encounter Summary ---
[place] [address] Care Team Providers Care Partition Making Machine Operator Name Role Phone Deborah Quiroga APRN Primary Care Provider [phone] Reason for Visit * Reason Onset Date Comments Prior Authorization 09/11/2016 Neulasta Encounter Details Date Type Department Care Team (Late st Contact Info) Description 09/11/2016 Telephone Hematology [place] [phone] Monica Wick Prior Authorization (Neulasta ) Social [...] AM EST Prior Auth for Neulasta (Approved) [facility] is a covered facility under the members plan. ID# [id number] Call placed to [phone] Rationale: Can you please start a PA for this pt to receive as outpatient at [facility] on 09/16/16? 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 ??Her last ANC was 0.56 (or 560) on 08/04/16. ??This will need to be approved through her medical as out patient. J code for neulasta. ?? [id number]. Spoke w/ Anna Marie Call Reference [id number] Copay: $ Deductible is not met, patient will have out of pocket costs until deductible is met. documented in this encounter Plan of Treatment Upcoming Encounters Date Type Department Care Team (Late st Contact Info) Description 03/01/2025 4:15 PM EDT Office Visit Dermatology at [place] [address] [place] [address] Marek Bonilla MD [address] [place] [address] documented as of this encounter Visit Diagnoses Not on filedocumented in this encounter Care Teams Partition Making Machine Operator Relationship Specialty Start Date End Date Deborah Quiroga APRN PCP - General Family Medicine 03/24/16 02/04/23 documented as of this encounter
--- OUTSIDE RECORDS SUMMARY | 2024-04-04 14:19 | XMS_ITS | Encounter Summary ---
[place] [address] Care Team Providers Care Heat Treater Helper Name Role Phone Junaid, Deborah Shields APRN Primary Care Provider [phone] Reason for Visit * Auth/Cert Specialty Diagnoses / Procedures Referred By Crispin t Referred To Contact Diagnoses Aortic stenosis Procedures PRO REPLACE AORT VALV, PROSTH VALV @REPLACE AORTIC VALVE, OPEN, W\CPB, W\PROSTHETIC VALVE (WRVU 41.32) Referral ID Status Reason Start Date Expiration Date Visits Re quested Visits Authorized [id number] 1 1 Encounter Details Date Type Department Care Team (Late st Contact Info) Description 09/21/2016 7:25 AM EST Anesthesia [place] [address] Luis Enrique Quarles MD [facility] DR [place] [address] Henrik Cooper MD [facility] DR [place] [address] Anesthesia Record Procedure Summary Procedure Name Responsible [...] 0819 Sternotomy 0844 CV Bypass init 1009 Air Quality Instrument Specialist 1014 An Clamp Remove 1031 CP Bypass [...] Tube 09/21/16 (#28 angled chest tube to Frederika: left: pericardial); Left; 09/22/16; 1119 09/21/16 0000 by Toshia Alejandre RN 09/22/16 1119 by Vero Bonilla RN Chest Tube 09/21/16 (#28 straig ht chest tube to Frederika; right: mediastinal'); Right; mediastinum; 09/22/16; 1118 09/21/16 0000 by Toshia Alejandre RN 09/22/16 1118 by Vero Bonilla RN (RETIRED) Peripheral IV Line - Single Lumen 09/21/16; 0648; metacarpal vein (top of hand), left; pjsm-end-ehqiyb catheter system; 20 gauge; valdo Arteaga; 09/23/16; [...] Cooper MD - 09/21/2016 6:50 PM EST [facility] Department of Anesthesiology Post-procedure Note Patient: Purnima [...] Anesthesia Providers: Anesthesiologist: Luis Enrique Quarles MD Ear Nose Throat Physician: Henrik Cooper MD Last (1hr) Vitals: BP Temp 36.1 ??C (97 ??F) (09/21/16 1800) Pulse 79 (09/21/16 1800) Resp 11 (09/21/16 1800) SpO2 98 % (09/21/16 1800) Patient Location: [facility] Level of Consciousness: Sedated (Pharmacologic/Intentional) [...] PM EDT Office Visit Dermatology at [place] [address] [place] [address] Marek Bonilla MD [address] [place] [address] RD, [place] [address] documented as of this encounter Visit Diagnoses [...] mg documented in this encounter Care Teams Heat Treater Helper Relationship Specialty Start Date End Date Deborah Quiroga, CHAIRPERSON ANESTHESIOLOGY PCP - General Family Medicine 03/24/16 02/04/23 documented as of this encounter
--- OUTSIDE RECORDS SUMMARY | 2024-04-04 14:20 | XMS_ITS | Encounter Summary ---
Author Organization [facility] [place] [address] Care Team Providers Care Foundry Patternmaker Name Role Phone Junaid Deborah Shields APRN Primary Care Provider [phone] Encounter Details Date Type Department Care Team (Latest Contact Info) Description 05/19/2016 11:20 AM EDT [place] [phone] Nonrheumatic aortic valve stenosis Social History Tobacco [...] EDT Office Visit Dermatology at [place] [address] [place] [address] Marek Bonilla MD [address] [place] [address] documented as of this encounter Procedures Procedure Name Priority Date/Time Associated Diagnosis Comments SCAN, PERIPHERAL BLOOD Routine 05/19/2016 11:32 AM EDT HEMOGRAM Routine 05/19/2016 11:32 AM EDT Nonrheumatic aortic valve stenosis DIFFERENTIAL, AUTOMATED Routine 05/19/2016 11:32 AM EDT Nonrheumatic aortic valve stenosis TYPE AND SCREEN, SDP (FUTURE SURGERY, [facility] SAME DAY PROGRAM ONLY) Routine [...] Pathologist [facility] Plat estimate Normal [facility] RBC Morphology Normal [facility] Blood specimen (specimen) 05/19/2016 11:32 AM EDT 05/19/2016 11:41 AM EDT Narrative Resulting Agency Comment Spec In Lab Alirio Esparza MD HEMATOLOGY ORDERABL ES [facility] [place] [address] * (ABNORMAL) Differential, Automated (05/19/2016 11:32 AM EDT) [facility] Neutrophil % 25.9 % [facility] Neutrophil Absolute 0.42(Crit ical) 1.70 - 6.10 x10(3)/mc L [facility] Comment: This result has been called to DR ALIRIO ESPARZA by Alivia Ibarra on 05 19 2016 at 1228, and has been read back. Lymph % 59.9 % [facility] Lymphocytes Abs 1.0 0.9 - 3.2 x10(3)/mc L [facility] Monocyte % 13.0 % [facility] Monocyte Abs 0.2(L) 0.3 - 0.9 x10(3)/[facility] Eos % 0.6 % [facility] Eosinophils Abs 0.0 0.0 - 0.4 x10(3)/ L [facility] Basophil % 0.6 % [facility] Baso Absolute 0.0 0.0 - 0.1 x10(3)/[facility] Immature Gran % 0.00 % [facility] Comment: Immature granulocytes(IG's)percentage and absolute count will include metamyelocytes, myelocytes, and promyelocytes. Blood smears from CBCs yielding IG's will be scanned manually for concordance. If this scan disagrees with the automated IG or if promyelocytes are noted, a manual differential will be performed. Immature Gran Absolute 0.00 0.00 - 0.04 x10(3)/[facility] Blood specimen (specimen) 05/19/2016 11:32 AM EDT 05/19/2016 11:41 AM EDT Narrative Resulting Agency Comment Spec In Lab Alirio Esparza MD HEMATOLOGY ORDERABL ES [facility] [place] [address] * (ABNORMAL) Hemogram (05/19/2016 11:32 AM EDT) White Blood Cell 1.6(Criti gabrielle) 4.0 - 9.5 x10(3)/ L [facility] Comment: This result has been called to DR ALIRIO ESPARZA by Alivia Ibarra on 05 19 2016 at 1228, and has been read back. Red Blood Cell 3.96(L) 4.00 - 5.21 x10(6)/mc L [facility] Hemoglobin 12.5 11.7 - 15.5 gm/dL [facility] Hematocrit 37.9 35.7 - 45.8 % [facility] Mean Cell Volume 95.7(H) 82.6 - 94.4 fL [facility] Mean Cell Hemoglobin 31.6 27.1 - 32.0 pg [facility] Mean Cell Hemoglobin Concentration 33.0 31.7 - 35.0 gm/dL [facility] Platelet 227 145 - 357 x10(3)/mc L [facility] RDW Standard Deviation 40.5 37.0 - 46.0 fL [facility] RDW coefficient of variation 11.5 11.5 - 14.1 % [facility] Mean Platelet Volume 8.4 7.6 - 12.9 fL [facility] NRBC% auto 0.0 % [facility] NRBC Absolute 0.000 0.000 - 0.000 x10(3)/mc L [facility] Blood specimen (specimen) 05/19/2016 11:32 AM EDT 05/19/2016 11:41 AM EDT Narrative Resulting Agency Comment Spec In Lab Alirio Esparza MD HEMATOLOGY ORDERABL ES Performing Organization Address City/State/[facility] Co de Phone Number [facility] [place] [address] * Antibody screen (05/19/2016 11:32 AM EDT) Ab Screen Interp Negative [facility] Expires at [id number] on: 07/03/2016 [facility] Comment: Corrected from 06/11/16 12:00 [Unknown] on 06/09/16 05:51 by Bethanie Tomlinson I.. Corrected from 07/03/16 12:00 [Unknown] on 05/21/16 06:00 by Shelia Barrera Blood specimen (specimen) 05/19/2016 11:32 AM EDT 05/19/2016 11:35 AM EDT Narrative Resulting Agency Comment Spec In Lab Alirio Esparza MD BLOOD BANK LAB ORDSylvia ALEJO [facility] [place] [address] * ABO/Rh Typing (05/19/2016 11:32 AM EDT) ABORH Type B Pos [facility] Blood specimen (specimen) 05/19/2016 11:32 AM EDT 05/19/2016 11:35 AM EDT Narrative Resulting Agency Comment Spec In Lab Alirio Esparza MD BLOOD BANK LAB BETH ALEJO Performing Organization Address City/[facility]/ZIP Co de Phone Number [facility] [place] [address] * Basic Metabolic Panel (non-fasting) (05/19/2016 11:32 AM EDT) Pathologist [facility] Glucose 86 65 - 199 mg/dL [facility] Comment:Diabetes: >=200 mg/d L plus symptoms Blood Urea Nitrogen 13 8 - 18 mg/dL [facility] Creatinine 0.95 0.70 - 1.20 mg/dL [facility] Comment: Please note that the pediatric reference intervals supplied above were not validated at [facility]. Results from pediatric patients should be interpreted in conjunction to the patient's age, height and muscle mass. Sodium 140 135 - 145 mmol/L [facility] Potassium 4.3 3.5 - 5.0 mmol/L [facility] Comment: Please note: ??Patients with WBC >100,000 may have falsely elevated Potassium levels. ??For accurate Potassium quantification in these patients send serum separator tube (gold top) for subsequent determinations. ??Contact the Clinical Chemistry Laboratory if there are any questions. Chloride 101 98 - 107 mmol/L [facility] Carbon Dioxide 27 22 - 31 mmol/L [facility] Anion Gap 12 5 - 15 mmol/L [facility] Calcium 10.1 8.5 - 10.5 mg/dL [facility] Est Glomerular Filtration Rate 60 >=60 [facility] Comment: This [...] the following links into your internet browser. [email or web address] Blood specimen (specimen) 05/19/2016 11:32 AM EDT 05/19/2016 11:41 AM EDT Narrative Resulting Agency Comment Spec In Lab Alirio Esparza MD CHEMISTRY ORDERABLE S [facility] [place] [phone] documented in this encounter Visit Diagnoses Diagnosis Nonrheumatic aortic valve stenosis Aortic valve disorders documented in this encounter Care Teams Foundry Patternmaker Relationship Specialty Start Date End Date Deborah Quiroga APRN PCP - General Family Medicine 03/24/16 02/04/23 documented as of this encounter
--- OUTSIDE RECORDS SUMMARY | 2024-04-04 14:20 | XMS_ITS | Encounter Summary ---
Author Organization [facility] Address [facility] [place] [address] Care Team Providers Care Coffee Shop Aide Name Role Phone Deborah Quiroga APRN Primary Care Provider [phone] Reason for Visit * Reason Comments Schedule Office Case * Consultation (Routine) - Closed Specialty Diagnoses / Procedures Referred By Contac t Referred To Contact Hematology and Oncology Diagnoses Leukopenia Neutropenia LEUKOPENIA W/NEUTROPENIA Procedures TC PEGFILGRASTIM, 6MG, INJECTION LEUKOPENIA W/NEUTROPENIA Alirio Esparza MD [facility] [place] [address] Mario Alberto Ramos Jr., MD [facility] [address] HEMATOLOG[place] [address] Referral ID Status Reason Start Date Expiration Date V isits Requested Visits Authorized [id number] Closed Consult, Test & Treat 07/17/2016 07/17/2017 1 1 Encounter Details Date Type Department Care Team (Late st Contact Info) Description 06/09/2016 3:00 PM EST Office Visit Hematology [place] [address] Mario Alberto Ramos Jr., MD [facility] [place] [address] Cyclical neutropenia Social History Tobacco Use Types [...] 3:00 PM EST Hematology Outpatient Clinic [facility] Hematology Outpatient Consult Note CC: 60 [...] Unknown See Comment Flow Cytometry Report Unknown [id number] ... HematoPathology: Flow Cytometry DIAGNOSIS 1. No [...] EDT Office Visit Dermatology at [place] [address] [place] [address] Marek Bonilla MD [address] [place] [address] documented as of this encounter Procedures Procedure [...] (06/09/2016 4:53 PM EST) Flow Cytometry Report [id number] ?Location: The signing pathologist has (i) examined [...] by the Clinical Flow Cytometry Laboratory at [facility]. It has not been cleared or [...] high complexity clinical laboratory testing. SPECIMEN PROCESSING [id number] Cells for immunophenotypic analysis were derived from peripheral blood. ??CD45 vs side scatter gating was utilized to identify a lymphoid analysis region that comprises approximately 49-51% of all cells. The following markers were assessed: CD2, CD3, CD4, CD5, CD7, CD8, CD10, CD16, CD19, CD45, CD56, CD57, kappa light chain, and lambda light chain. CLINICAL INFORMATION 60 yo female with neutropenia. LGL panel requested. [facility] 06/09/2016 4:53 PM EST Mario Alberto Ramos Jr., MD PATHOLOGY/CYTOLOGY O RDERABLES [facility] [place] [address] * Scan, Peripheral Blood (06/09/2016 4:53 PM EST) Pathologist [facility] Plat estimate Normal [facility] RBC Morphology Normal [facility] Blood specimen (specimen) 06/09/2016 4:53 PM EST 06/09/2016 5:00 PM EST Narrative Resulting Agency Comment Spec In Lab Mario Alberto Ramos Jr., MD HEMATOLOGY ORDERABLE S Performing Organization Address City/[facility]/ZIP Co de Phone Number [facility] [place] [address] * (ABNORMAL) Differential, Automated (06/09/2016 4:53 PM EST) [facility] Neutrophil % 27.7 % [facility] Neutrophil Absolute 0.48(Crit ical) 1.70 - 6.10 x10(3)/mc L [facility] Comment: Matches Previous Results.. This result has been called to NOT CALLED by Jesusita Argueta on 06 09 2016 at 1817, and has not been read back. MATCHES PREVIOUS RESULTS Lymph % 57.2 % [facility] Lymphocytes Abs 1.0 0.9 - 3.2 x10(3)/mc L [facility] Monocyte % 13.3 % [facility] Monocyte Abs 0.2(L) 0.3 - 0.9 x10(3)/mc L [facility] Eos % 0.6 % [facility] Eosinophils Abs 0.0 0.0 - 0.4 x10(3)/mc L [facility] Basophil % 1.2 % [facility] Baso Absolute 0.0 0.0 - 0.1 x10(3)/mc L [facility] Immature Gran % 0.00 % [facility] Comment: Immature granulocytes(IG's)percentage and absolute count will include metamyelocytes, myelocytes, and promyelocytes. Blood smears from CBCs yielding IG's will be scanned manually for concordance. If this scan disagrees with the automated IG or if promyelocytes are noted, a manual differential will be performed. Immature Gran Absolute 0.00 0.00 - 0.04 x10(3)/mc L [facility] Blood specimen (specimen) 06/09/2016 4:53 PM EST 06/09/2016 5:00 PM EST Narrative Resulting Agency Comment Spec In Lab Mario Alberto Ramos Jr., MD HEMATOLOGY ORDERABLE S Performing Organization Address City/State/[facility] Co de Phone Number [facility] [place] [address] * (ABNORMAL) Hemogram (06/09/2016 4:53 PM EST) White Blood Cell 1.7(Criti gabrielle) 4.0 - 9.5 x10(3)/mc L [facility] Red Blood Cell 3.92(L) 4.00 - 5.21 x10(6)/mc L [facility] Hemoglobin 12.4 11.7 - 15.5 gm/dL [facility] Hematocrit 36.7 35.7 - 45.8 % [facility] Mean Cell Volume 93.6 82.6 - 94.4 fL [facility] Mean Cell Hemoglobin 31.6 27.1 - 32.0 pg [facility] Mean Cell Hemoglobin Concentration 33.8 31.7 - 35.0 gm/dL [facility] Platelet 234 145 - 357 x10(3)/mc L [facility] RDW Standard Deviation 39.8 37.0 - 46.0 fL [facility] RDW coefficient of variation 11.8 11.5 - 14.1 % [facility] Mean Platelet Volume 8.6 7.6 - 12.9 fL [facility] NRBC% auto 0.0 % [facility] NRBC Absolute 0.000 0.000 - 0.000 x10(3)/mc L [facility] Blood specimen (specimen) 06/09/2016 4:53 PM EST 06/09/2016 5:00 PM EST Narrative Resulting Agency Comment Spec In Lab Mario Alberto Ramos Jr., MD HEMATOLOGY ORDERABLE S Performing Organization Address [facility] Co de Phone Number [facility] [place] [address] * Immunophenotyping Flow Cytometry (06/09/2016 4:53 PM EST) Immunophenotyping Flow See Comment [facility] Comment: When completed by the Pathologist, the Flow Cytometry Report ([id number]) will display under the Pathology Results section within [facility]. Specimen of unknown material (specimen) 06/09/2016 4:53 PM EST 06/09/2016 5:00 PM EST Narrative Resulting Agency Comment Spec In Lab Mario Alberto Ramos Jr., MD HEMATOLOGY ORDERABLE S Performing Organization Address City/[facility] Co de Phone Number [facility] [place] [address] documented in this encounter Visit Diagnoses Diagnosis Cyclical neutropenia Cyclic neutropenia documented in this encounter Care Teams Coffee Shop Aide Relationship Specialty Start Date End Date Deborah Quiroga APRN PCP - General Family Medicine 03/24/16 02/04/23 documented as of this encounter
--- OUTSIDE RECORDS SUMMARY | 2024-04-04 14:20 | XMS_ITS | Encounter Summary ---
Author Organization [facility] Address [facility] [place] [address] Care Team Providers Care Information Services Tech Name Role Phone Danni Laird APRN Primary Care Provider [phone] Encounter Details Date Type Department Care Team (Late st Contact Info) Description 01/23/2014 Orders Only Cardiology at [address] [address] Lee Kincaid MD [facility] [place] [address] SOB (shortness of breath) (Primary Dx) Social [...] 4:15 PM EDT Office Visit Dermatology at [place] [address] [place] [address] Marek Bonilla MD [address] [facility] [address] DERMATOLOGY [place], [place] [address] documented as of this encounter Results * Echocardiogram Transthoracic(Leb) (01/23/2014 3:17 PM EDT) EF 50 HEARTLAB SYSTEM Anatomical Region Laterality Modality Other 01/23/2014 Narrative 01/23/2014 4:35 PM EDT Procedure: ? Transthoracic Echocardiogram Patient: ? ANDREW Mejias ?(Age): 1955(58) Med Rec#: ?[id number] ? Sex: ?F ? [place] [place] Ht / Wt: ??158(cm)/93(kg) Pt. Loc: ? Adult Floor ?BSA: ?2.02 Study Date: ?01/23/2014 ? Pt. Type: Inpatient Tape: ? Referring: Lee Kincaid ([id number]) Referring: ANNALISA Information Technology Specialist: Miguel Beverly Diagnosis:CPT Code(s): ??Echo Full (65541), ??Spectral Doppler (06439), Color Doppler (36415), Indication(s): ??Aortic stenosis Rhythm: Sinus HR ?BP [...] ? Mid-Inferior ?Hypokinetic ? Mid-Inferoseptal ?Hypokinetic ? [place]-Septal ? Hypokinetic ? [place]-Anterior ? Hypokinetic ? [place]-Lateral ?Hypokinetic ? [place]-Inferior ? Hypokinetic ? [place]-Tip ?Hypokinetic ? Chambers ?Value ?Units (Range) ? [...] Images reviewed and interpretation verified [facility] Cardiac [facility]trasound [facility] Procedure Note Lee Kincaid MD - 01/23/2014 Procedure: Transthoracic Echocardiogram Patient: ANDREW Mejias (Age): 1955(58) Med Rec#: [id number] Sex: F [place] [facility] Ht / Wt: 158(cm)/93(kg) Pt. Loc: Adult Floor BSA: 2.02 Study Date: 01/23/2014 Pt. Type: Inpatient Tape: Referring: Lee Kincaid ([id number]) Referring: ANNALISA Information Technology Specialist: Miguel Beverly Diagnosis:CPT Code(s): Echo Full (62141), Spectral Doppler (91161), Color Doppler (05742), Indication(s): Aortic stenosis Rhythm: Sinus HR BP [...] Hypokinetic Mid-Posterolateral Hypokinetic Mid-Inferior Hypokinetic Mid-Inferoseptal Hypokinetic [place]-Septal Hypokinetic [place]-Anterior Hypokinetic [place]-Lateral Hypokinetic [place]-Inferior Hypokinetic [place]-Tip Hypokinetic Chambers Value Units (Range) IVSd 2D [...] Images reviewed and interpretation verified [facility] Lee Kincaid MD ECHO ORDERABLES documented in this encounter Visit Diagnoses Diagnosis SOB (shortness of breath)- Primary Shortness of breath documented in this encounter Care Teams Information Services Tech Relationship Specialty Start Date End Date Danni Laird APRN [address] [place] [address] PCP - General 01/23/14 11/11/14 documented as of this encounter
--- OUTSIDE RECORDS SUMMARY | 2024-04-04 14:20 | XMS_ITS | Encounter Summary ---
[place] [address] Care Team Providers Care Help Aid Name Role Phone Deborah Quiroga ANURAG Primary Care Provider [phone] Encounter Details Date Type Department Care Team (Late st Contact Info) Description 07/22/2016 External Results Hematology [place] [address] Alexandrea Greenwood RN Neutropenia, unspecified type Social [...] 4:15 PM EDT Office Visit Dermatology at [place] [address] [place] [address] Marek Bonilla MD [address] [place] [address] documented as of this encounter Procedures Procedure Name Priority Date/Time Associated Diagnosis Comments COPPER, SERUM Routine 07/20/2016 10:30 AM EST Neutropenia, unspecified type CMV PCR, QUANTITATIVE Routine 07/20/2016 10:30 AM EST Neutropenia, unspecified type MONONUCLEOSIS SCREEN (APD/JEANNINE/[facility]) Routine 07/20/2016 10:30 AM EST Neutropenia, unspecified type CBC (WITH DIFF) Routine 07/20/2016 10:30 AM EST Neutropenia, unspecified type documented in this encounter Results * Copper, serum (07/20/2016 10:30 AM EST) Copper (NOVEMBER) 1.09 0.75 - 1.45 EXTERNAL LAB Blood specimen (specimen) 07/20/2016 10:30 AM EST Markel Borjas MD LAB SEND OUT ORDER JODIE Performing Organization Address [facility] Co de Phone Number EXTERNAL LAB * CMV PCR, Quantitative (07/20/2016 10:30 AM EST) CMV PCR,Quantitati ve undetected EXTERNAL LAB Blood specimen (specimen) 07/20/2016 10:30 AM EST Markel Borjas MD MOLECULAR ORDERABL ES Performing Organization Address [facility] Co de Phone Number EXTERNAL LAB * Mononucleosis Screen (07/20/2016 10:30 AM EST) Mononucleosis Screen neg neg - neg EXTERNAL LAB Blood specimen (specimen) 07/20/2016 10:30 AM EST Markel Borjas MD IMMUNOLOGY ORDERAB LES Performing Organization Address [facility] Co de Phone Number [...] type documented in this encounter Care Teams Help Aid Relationship Specialty Start Date End Date Deborah Quiroga, MARKETING OPERATIONS ASSOCIATE PCP - General Family Medicine 03/24/16 02/04/23 documented as of this encounter
--- OUTSIDE RECORDS SUMMARY | 2024-04-04 14:20 | XMS_ITS | Encounter Summary ---
[place] [address] Care Team Providers Care Fertilizer Supervisor Name Role Phone Deborah Quiroga ANURAG Primary Care Provider [phone] Encounter Details Date Type Department Care Team (Late st Contact Info) Description 07/31/2016 Orders Only [place]ology [place] [address] Alexandrea Greenwood RN Neutropenia, unspecified type Social [...] 4:15 PM EDT Office Visit Dermatology at [place] [address] [place] [address] Marek Bonilla MD [address] [facility] [place] [address] documented as of this encounter Results * (ABNORMAL) CBC (with Diff) (08/04/2016 12:05 PM EST) White Blood Cell 1.52(EXTER NAL/ABN) 4.4 - 10.8 EXTERNAL LAB Hemoglobin 12.3 12.0 - 16.0 EXTERNAL LAB Hematocrit 37.3 36.0 - 46.0 EXTERNAL LAB Platelet 236 130 - 400 EXTERNAL LAB Neutrophil Absolute (ANC) - Automated 0.56(EXTER NAL/ABN) 1.2 - 6.7 EXTERNAL LAB Blood specimen (specimen) 08/04/2016 12:05 PM EST Markel Borjas MD HEMATOLOGY ORDERAB LES EXTERNAL LAB documented in this encounter Visit Diagnoses Diagnosis Neutropenia, unspecified type documented in this encounter Care Teams Fertilizer Supervisor Relationship Specialty Start Date End Date Deborah Quiroga, CLINICAL QUALITY RN PCP - General Family Medicine 03/24/16 02/04/23 documented as of this encounter
--- OUTSIDE RECORDS SUMMARY | 2024-04-04 14:20 | XMS_ITS | Encounter Summary ---
Author Organization [facility] [place] [address] Care Team Providers Care Market Development Trainer Name Role Phone Eitan Danni ANURAG Primary Care Provider Encounter Details Date Type Department Care Team (Late st Contact Info) Description 01/23/2014 9:25 AM EDT - 01/23/2014 10:25 AM EDT Surgery Technical [place] [address] Alan Jacobson MD [facility] [place] [address] CARDIAC CATHETERIZATION Social History Tobacco Use Types [...] by your doctor, do not take any gupj-fmt-lbrsnek medicines or herbal preparations without first discussing this with your doctor or pharmacist. There is the possibility of side effect and interactions when these are combined. Follow up Care Who to Call with Questions or Problems If there are any questions or problems that you think might be related to your cardiac cath or angioplasty, contact the patient registration rep campus receptionist by calling [facility] at [...] PM EDT Office Visit Dermatology at [place] [address] [place] [address] Marek Bonilla MD [address] [place] [address] documented as of this encounter Procedures Procedure Name Priority Date/Time Associated Diagnosis Comments ECHOCARDIOGRAM TRANSTHORACIC Routine 01/23/2014 3:17 PM EDT SOB (shortness of breath) documented in this encounter Results * Echocardiogram Transthoracic(Leb) (01/23/2014 3:17 PM EDT) Pathologist [employer] EF 50 HEARTMyVR SYSTEM Anatomical Region Laterality Modality Other 01/23/2014 Narrative 01/23/2014 4:35 PM EDT Procedure: ? Transthoracic Echocardiogram Patient: ? ANDREW ECHOLS M ?(Age): 1955(58) Med Rec#: ?[id number] ? Sex: ?F ? Site Loc: ?[facility] ? Ht / Wt: ??158(cm)/93(kg) Pt. Loc: ? Adult Floor ?BSA: ?2.02 Study Date: ?01/23/2014 ? Pt. Type: Inpatient Tape: ? Referring: Lee Kincaid ([id number]) Referring: ANNALISA Bag Machine Helper: Miguel Beverly Diagnosis:CPT Code(s): ??Echo Full (88093), ??Spectral Doppler (38270), Color Doppler (34812), Indication(s): ??Aortic stenosis Rhythm: Sinus HR ?BP [...] ? Mid-Inferior ?Hypokinetic ? Mid-Inferoseptal ?Hypokinetic ? [place]-Septal ? Hypokinetic ? [place]-Anterior ? Hypokinetic ? [place]-Lateral ?Hypokinetic ? [place]-Inferior ? Hypokinetic ? [place]-Tip ?Hypokinetic ? Chambers ?Value ?Units (Range) ? [...] Patient: ANDREW Mejias (Age): 1955(58) Med Rec#: [id number] Sex: F Site Loc: [facility] Ht / Wt: 158(cm)/93(kg) Pt. Loc: Adult Floor BSA: 2.02 Study Date: 01/23/2014 Pt. Type: Inpatient Tape: Referring: Lee Kincaid ([id number]) Referring: [facility] Bag Machine Helper: Miguel Beverly Diagnosis:CPT Code(s): Echo Full (59410), Spectral Doppler (47547), Color Doppler (15409), Indication(s): Aortic stenosis Rhythm: Sinus HR BP [...] Hypokinetic Mid-Posterolateral Hypokinetic Mid-Inferior Hypokinetic Mid-Inferoseptal Hypokinetic [place]-Septal Hypokinetic [place]-Anterior Hypokinetic [place]-Lateral Hypokinetic [place]-Inferior Hypokinetic [place]-Tip Hypokinetic Chambers Value Units (Range) IVSd 2D [...] RN) documented in this encounter Care Teams Market Development Trainer Relationship Specialty Start Date End Date Danni Laird APRN [address] [place] [address] PCP - General 01/23/14 11/11/14 documented as of this encounter
--- OUTSIDE RECORDS SUMMARY | 2024-04-04 14:20 | XMS_ITS | Encounter Summary ---
Author Organization [facility] Address [facility] [place] [address] Care Team Providers Care Kitchen Mechanic Name Role Phone Deborah Quiroga ANURAG Primary Care Provider [phone] Encounter Details Date Type Department Care Team (Late st Contact Info) Description 05/22/2016 Orders Only Cardiology at [address] [address] Chele Randolph PA [facility] [place] [address] Aortic valve stenosis, unspecified etiology Social History [...] 4:15 PM EDT Office Visit Dermatology at [place] [address] [place] [address] Marek Bonilla MD [address] [place] [address] documented as of this encounter Procedures Procedure Name Priority Date/Time Associated Diagnosis Comments CARDIAC CATHETERIZATION Routine 06/03/20 16 9:13 AM EDT Aortic valve stenosis, unspecified etiology documented in this encounter Results * CARDIAC CATHETERIZATION (06/03/2016 9:13 AM EDT) Anatomical Region Laterality Modality Other Narrative 06/03/2016 10:13 AM EDT ?[facility] ? Cardiac Catheterization/Intervention Report ? Patient Name: Kirstie, Purnima M. ? Procedure Date: 06/03/2016 ? A #: [id number] ? Primary Physician: Nitesh Escobedo ? Case #: [id number] ? File Name: [id number] ? Catheterization Order Number: [id number] ? [facility] ? Final Report [place], [place] ? Patient Name: ? Purnima M. Kirstie ? ID#: ?[id number] ? : ?1955 ? Procedure Date: ? [...] no symptom, no angina (w/i 14 days). [place] ?Cardiovascular Society angina class was 0. This [...] Procedure Note Nitesh Escobedo MD - 09/21/2016 [facility] Cardiac Catheterization/Intervention Report Patient Name: Purnima Thacker Procedure Date: 06/03/2016 A #: [id number] Primary Physician: Nitesh Escobedo Case #: [id number] File Name: [id number] Catheterization Order Number: [id number] [facility] FinalReport [place], [place] Patient Name: Purnima Thacker ID#:[id number] :1955 Procedure Date: June 03, 2016 Case [...] with: no symptom, no angina (w/i 14 days).[place] Cardiovascular Society angina class was 0. This [...] etiology documented in this encounter Care Teams Kitchen Mechanic Relationship Specialty Start Date End Date Deborah Quiroga APRN PCP - General Family Medicine 03/24/16 02/04/23 documented as of this encounter
--- OUTSIDE RECORDS SUMMARY | 2024-04-04 14:20 | XMS_ITS | Encounter Summary ---
Author Organization [facility] [place] [address] Care Team Providers Care Information Systems Architect Name Role Phone Deborah Quiroga APRN Primary Care Provider [phone] Encounter Details Date Type Department Care Team (Late st Contact Info) Description 06/09/2016 Orders Only Hematology [place] [address] Nitesh Pina Jr., MD [facility] [address] [place]AT[place] [address] Cyclical neutropenia Social History Tobacco Use Types [...] 4:15 PM EDT Office Visit Dermatology at [place] [address] [place] [phone] Marek Bonilla MD [address] [facility] [place] [address] documented as of this encounter Results * Immunophenotyping Flow Cytometry (06/09/2016 4:53 PM EST) Immunophenotyping Flow See Comment [facility] Comment: When completed by the Pathologist, the Flow Cytometry Report ([id number]) will display under the Pathology Results section within [facility]. Specimen of unknown material (specimen) 06/09/2016 4:53 PM EST 06/09/2016 5:00 PM EST Narrative Resulting Agency Comment Spec In Lab Nitesh Pina Jr., MD HEMATOLOGY ORDERABLE S Performing Organization Address City/State/[facility] Co de Phone Number [facility] [place] [address] documented in this encounter Visit Diagnoses Diagnosis Cyclical neutropenia Cyclic neutropenia documented in this encounter Care Teams Information Systems Architect Relationship Specialty Start Date End Date Deborah Quiroga, MARKETING CONTENT MANAGER PCP - General Family Medicine 03/24/16 02/04/23 documented as of this encounter
--- OUTSIDE RECORDS SUMMARY | 2024-04-04 14:20 | XMS_ITS | Encounter Summary ---
Author Organization [facility] Address [facility] [place] [address] Care Team Providers Care Certified Nursing Assistant Name Role Phone Mitchell Wilkes MD Primary Care Provider [phone] Encounter Details Date Type Department Care Team (Late st Contact Info) Description 01/19/2014 Orders Only Cardiology at [address] [address] Chele Ranodlph, PA [facility] [place] [address] Cardiomyopathy (Primary Dx) Social History Tobacco Use [...] 4:15 PM EDT Office Visit Dermatology at [place] [address] [place] [address] Marek Bonilla MD [address] [place] [address] documented as of this encounter Procedures Procedure [...] cardiomyopathies documented in this encounter Care Teams Certified Nursing Assistant Relationship Specialty Start Date End Date Mitchell Wilkes MD [facility] PCP - General 06/24/10 01/19/14 documented as of this encounter
--- OUTSIDE RECORDS SUMMARY | 2024-04-04 14:20 | XMS_ITS | Encounter Summary ---
[place] [address] Care Team Providers Care Conventional Underwriter Name Role Phone Ashley Quirogan Cornelius ANURAG Primary Care Provider [phone] Encounter Details Date Type Department Care Team (Late st Contact Info) Description 03/24/2016 Notes [place] [phone] Alfa Lua Social History Tobacco Use Types [...] assessments completed: Wadsworth Score: 6/6 IADL: 7/7 Dental Patient Coordinator Strength Trials: 18.4, 15.0, 16.8 (right hand dominant) 5 meter walk test in seconds x3: 4.98, 4.88, 4.45 KCCQol: 98% Alfa Lua documented in this encounter Plan of Treatment Upcoming Encounters Date Type Department Care Team (Late st Contact Info) Description 03/01/2025 4:15 PM EDT Office Visit Dermatology at [place] [address] [facility] [address] [place] [address] Marek Bonilla MD [address] [place] [address] documented as of this encounter Visit Diagnoses Not on filedocumented in this encounter Care Teams Conventional Underwriter Relationship Specialty Start Date End Date Deborah Quiroga APRN PCP - General Family Medicine 03/24/16 02/04/23 documented as of this encounter
--- OUTSIDE RECORDS SUMMARY | 2024-04-04 14:20 | XMS_ITS | Encounter Summary ---
[place] [address] Care Team Providers Care Food Editor Name Role Phone Deborah Quiroga ANURAG Primary Care Provider [phone] Reason for Visit * Reason Onset Date Comments Medical Care Coordination 07/17/2016 Encounter Details Date Type Department Care Team ([facility] Contact Info) Description 07/17/2016 Telephone [place] [address] Alexandrea Greenwood RN Medical Care Coordination Social [...] 07/17/2016 12:07 PM EST Message received from alumni secretary: Injection/Infusion Referral Call placed to [phone]). Spoke w/ Pasquale. Services to be provided for pt are: Labs @ 10am ([facility]) & Neulasta @ 11am on 07/20/16, CBC only on 07/30/16 Pasquale confirmed they would provide services to pt and I left [facility] for pt to call for appt info. Pt demographics, office note, med list and orders faxed to [facility] documented in this encounter Plan of Treatment Upcoming Encounters Date Type Department Care Team (Late st Contact Info) Description 03/01/2025 4:15 PM EDT Office Visit Dermatology at [place] [address] [place] [address] Marek Bonilla MD [address], [place] [address] documented as of this encounter Visit Diagnoses Not on filedocumented in this encounter Care Teams Food Editor Relationship Specialty Start Date End Date Deborah Quiroga APRN PCP - General Family Medicine 03/24/16 02/04/23 documented as of this encounter
--- OUTSIDE RECORDS SUMMARY | 2024-04-04 14:20 | XMS_ITS | Encounter Summary ---
Author Organization [facility] [place] [address] Care Team Providers Care Office Automation Technician Name Role Phone EitanDanni ANURAG Primary Care Provider [phone] Encounter Details Date Type Department Care Team (Late st Contact Info) Description 01/22/2014 Telephone Cardiology at [address] [phone] Cynthia Arringotn LPN Social History Tobacco Use Types Packs/Day [...] LPN - 01/23/2014 2:39 PM EDT This bond writer did not receive a call back [...] 4:15 PM EDT Office Visit Dermatology at [place] [address] [facility] [place] [address] Marek Bonilla MD [address], [place] [address] documented as of this encounter Visit Diagnoses Not on filedocumented in this encounter Care Teams Office Automation Technician Relationship Specialty Start Date End Date Danni Laird APRN [address] [place] [address] PCP - General 01/23/14 11/11/14 documented as of this encounter
--- OUTSIDE RECORDS SUMMARY | 2024-04-04 14:20 | XMS_ITS | Encounter Summary ---
Author Organization [facility] Address [facility] [place] [address] Care Team Providers Care Curator Of Collections Name Role Phone JunaidAshley hargrovezac Shields APRN Primary Care Provider [phone] Reason for Visit * Auth/Cert Specialty Diagnoses / Procedures Referred By Crispin t Referred To Contact Diagnoses AVS Procedures CARDIAC CATHETERIZATION Referral ID Status Reason Start Date Expiration Date Visits Re quested Visits Authorized [id number] 1 1 Encounter Details Date Type Department Care Team (Late st Contact Info) Description 06/03/2016 6:32 AM EDT - 06/03/2016 1:10 PM EDT Hospital En[place] [phone] Anjum Oliveros II, MD [facility] [address] Mario Alberto Escobedo MD [facility] [place] [address] Aortic valve stenosis, unspecified etiology; Nonrheumatic aortic [...] by your doctor, do not take any [id number] medicinesor herbal preparations without first discussing this with your doctor or pharmacist. There is the possibility of side effects and interactions when these are combined. Follow Up Care Who to call with questions or problems If there are any questions or problems that you think might be related to your cardiac cath or angioplasty, contact the high lift operator patient observation assistant by calling [facility] at . * Patient Instructions* Felicia Corrigan - 06/03/2016 9:33 AM EDT Cardiology Instructions Call your doctor if: Chest pain, dyspnea, pain or swelling in legs occurs. If you have non-emergent questions between now and the time of your follow up appointments: -During 8am-5pm Wednesday through Wednesday call [phone] to speak with a nurse in the cardiology clinic -All other times call [phone] and ask to speak to the housefellow patient observation assistant. MEDICATIONS - restart your spironolactone, discontinue prior [...] Appointments: Primary care provider: Cardiology: Deborah Hahn, QUALITY ASSURANCE ASSESSOR [phone] Follow up as planned or as needed. Dr. Esparza [phone] Other follow-up appointment: Hematology - Dr. Mario [...] 4:15 PM EDT Office Visit Dermatology at [place] [address] [facility] [place] [address] Marek Bonilla MD [address] [facility] DERMATOLOGY [place], [place] [address] documented as of this encounter Procedures Procedure [...] Green Tube HOLD (06/03/2016 11:45 AM EDT) [facility] Green Hold Sample in lab. [facility] Blood specimen (specimen) Venous Draw / Unknown 06/03/2016 11:45 AM EDT 06/03/2016 12:12 PM EDT Mario Alberto Escobedo MD CHEMISTRY ORDERABLES Performing Organization Address [facility] Co de Phone Number [facility] [place] [address] * Methylmalonic acid, serum (06/03/2016 11:45 AM EDT) [facility] Methylmalonic Acid (NOVEMBER) 0.21 <=0.40 nmol/mL [facility] Comment: Test Performed by: [place] [address] Sea Captain: Raymond Chaudhry II, M.D., Ph.D. Blood specimen (specimen) 06/03/2016 11:45 AM EDT 06/03/2016 1:57 PM EDT Narrative Resulting Agency Comment Spec In Lab Mario Alberto Escobedo MD LAB SEND OUT ORDERAB LES Performing Organization Address [facility] Co de Phone Number [facility] [place] [address] * Granulocyte Antibody (06/03/2016 11:45 AM EDT) [facility] Granulocyte Ab (NOVEMBER) Negative Not Applicable [facility] Comment: ADDITIONAL INFORMATION Method: Immunofluorescent Assay Performing Laboratory CLIA# [id number] This test was developed and its performance characteristics determined by [facility] in a manner consistent with CLIA requirements. This test has not been cleared or approved by the U.S. Food and Drug Administration. Test Performed by: [facility] - [address] [address] Sea Captain: Raymond Chaudhry II, M.D., Ph.D. Blood specimen (specimen) 06/03/2016 11:45 AM EDT 06/03/2016 1:57 PM EDT Narrative Resulting Agency Comment Spec In Lab Mario Alberto Escobedo MD LAB SEND OUT ORDERAB LES Performing Organization Address [facility] Co de Phone Number [facility] [place] [address] * TSH (06/03/2016 11:45 AM EDT) Thyroid Stimulating Hormone 2.18 0.27 - 4.20 mcIU/mL [facility] Blood specimen (specimen) 06/03/2016 11:45 AM EDT 06/03/2016 12:11 PM EDT Narrative Resulting Agency Comment Spec In Lab Mario Alberto Escobedo MD CHEMISTRY ORDERABLES Performing Organization Address [facility] Co de Phone Number [facility] [place] [place] [address] * Homocysteine Total, Plasma (06/03/2016 11:45 AM EDT) Homocystine 9 <=15 mcmol/L [facility] Blood specimen (specimen) 06/03/2016 11:45 AM EDT 06/03/2016 12:11 PM EDT Narrative Resulting Agency Comment Spec In Lab Mario Alberto Escobedo MD CHEMISTRY ORDERABLES Performing Organization Address [facility] Co de Phone Number [facility] [place] [address] * Folate, serum (06/03/2016 11:45 AM EDT) Folate >20.0 4.8 - 24.2 ng/mL [facility] Blood specimen (specimen) 06/03/2016 11:45 AM EDT 06/03/2016 12:04 PM EDT Narrative Resulting Agency Comment Spec In Lab Mario Alberto Escobedo MD CHEMISTRY ORDERABLES Performing Organization Address City/[facility] Co de Phone Number [facility] [place] [address] * (ABNORMAL) Sedimentation rate (06/03/2016 11:45 AM EDT) Pathologist [facility] Sedimentation Rate Automated 41(H) 0 - 20 mm/hr [facility] Blood specimen (specimen) 06/03/2016 11:45 AM EDT 06/03/2016 12:04 PM EDT Narrative Resulting Agency Comment Spec In Lab Mario Alberto Escobedo MD HEMATOLOGY ORDERABLE S Performing Organization Address [facility] Co de Phone Number [facility] [place] [address] * Lactate Dehydrogenase (06/03/2016 11:45 AM EDT) Lactate Dehydrogenase 164 110 - 220 unit/L [facility] Blood specimen (specimen) 06/03/2016 11:45 AM EDT 06/03/2016 12:11 PM EDT Narrative Resulting Agency Comment Spec In Lab Mario Alberto Escobedo MD CHEMISTRY ORDERABLES Performing Organization Address [facility] Co de Phone Number [facility] [place] [address] * Comprehensive metabolic panel (non-fasting) (06/03/2016 11:45 AM EDT) Glucose 90 65 - 199 mg/dL [facility] Comment:Diabetes: >=200 mg/d L plus symptoms Blood Urea Nitrogen 11 8 - 18 mg/dL [facility] Creatinine 0.83 0.70 - 1.20 mg/dL [facility] Comment: Please note that the pediatric reference intervals supplied above were not validated at [facility]. Results from pediatric patients should be interpreted in conjunction to the patient's age, height and muscle mass. Sodium 143 135 - 145 mmol/L [facility] Potassium 4.0 3.5 - 5.0 mmol/L [facility] Comment: Please note: ??Patients with WBC >100,000 may have falsely elevated Potassium levels. ??For accurate Potassium quantification in these patients send serum separator tube (gold top) for subsequent determinations. ??Contact the Clinical Chemistry Laboratory if there are any questions. Chloride 104 98 - 107 mmol/L [facility] Carbon Dioxide 25 22 - 31 mmol/L [facility] Anion Gap 14 5 - 15 mmol/L [facility] Calcium 9.2 8.5 - 10.5 mg/dL [facility] Protein, Total 7.0 6.1 - 8.0 gm/dL [facility] Albumin 4.0 3.2 - 5.2 gm/dL [facility] Aspartate Aminotransferase 17 0 - 30 unit/L [facility] Alanine Aminotransferase 9 0 - 30 unit/L [facility] Alkaline Phosphatase 81 40 - 104 unit/L [facility] Bilirubin, Total 0.4 0.2 - 1.3 mg/dL [facility] Bilirubin, Direct 0.1 0.0 - 0.3 mg/dL [facility] Est Glomerular [...] the following links into your internet browser. [email or web address] Blood specimen (specimen) 06/03/2016 11:45 AM EDT 06/03/2016 12:11 PM EDT Narrative Resulting Agency Comment Spec In Lab Mario Alberto Escobedo MD CHEMISTRY ORDERABLES [facility] [place] [address] documented in this encounter Visit Diagnoses Diagnosis [...] Hernandez) documented in this encounter Care Teams Curator Of Collections Relationship Specialty Start Date End Date Deborah Quiroga, QUALITY ASSURANCE ASSESSOR PCP - General Family Medicine 03/24/16 02/04/23 documented as of this encounter
--- OUTSIDE RECORDS SUMMARY | 2024-04-04 14:20 | XMS_ITS | Encounter Summary ---
[place] [address] Care Team Providers Care Refuse Collector Supervisor Name Role Phone Deborah Quiroga ANURAG Primary Care Provider [phone] Reason for Visit * Reason Onset Date Comments Pre Procedure Call 06/18/2016 Encounter Details Date Type Department Care Team (Late st Contact Info) Description 06/18/2016 Telephone Hematology [place] [phone] Alexandrea Greenwood RN Pre Procedure Call Social [...] 4:15 PM EDT Office Visit Dermatology at [place] [address] [facility] [place] [address] Marek Bonilla MD [address], [place] [address] documented as of this encounter Visit Diagnoses Not on filedocumented in this encounter Care Teams Refuse Collector Supervisor Relationship Specialty Start Date End Date Deborah Quiroga APRN PCP - General Family Medicine 03/24/16 02/04/23 documented as of this encounter
--- OUTSIDE RECORDS SUMMARY | 2024-04-04 14:20 | XMS_ITS | Encounter Summary ---
Author Organization Formerly [facility] Address [facility] [place] [address] Care Team Providers Care Skilled Nursing Professional Name Role Phone Deborah Quiroga APRN Primary Care Provider Encounter Details Date Type Department Care Team (Late st Contact Info) Description 07/17/2016 9:00 AM EST Office Visit Hematology [place] [address] Markel Borjas MD [facility] [address] HEMATOLOGY [place] [address] Neutropenia, unspecified type Social History Tobacco Use [...] 07/17/2016 9:00 AM EST Hematology Outpatient Clinic [facility] Hematology Outpatient Consult Note CC: 60 year [...] TOUCH PREP, CLOT SECTION, CORE ??BIOPSY); [OSR# [id number], COLLECTED 06/23/2016, 19 SLIDES]: ?1. ??Normocellular marrow [...] a clonal lymphoproliferative or myeloproliferative disorder (OSR# [id number]) Chromosome analysis on the marrow aspirate revealed [...] 24 hour(s)). Labs will be drawn at [facility] next week Imaging As above [...] leukopenia. Will consi kanwal talking to pt's survey director about a switch from [facility] to [...] the original note were not included. [facility] HEM ONC [facility] [address] Date: 07/17/16 Patient Name: Purnima Thacker : 1955 Diagnosis: neutropenia Referral to [site]: [facility] Orders: ? Labs: Fax results to . [x] Draw CBC, copper level, CMV PCR, mononucleosis screen on 07/20 Repeat CBC on 07/30 (to measure response of WBC after Neulasta) ? Growth factor: [x] Neulasta 6mg SQ injection x 1 on 07/20/2016 Signature: Markel Borjas MD beeper # [id number] documented in this encounter Plan of Treatment Upcoming Encounters Date Type Department Care Team (Late st Contact Info) Description 03/01/2025 4:15 PM EDT Office Visit Dermatology at [place] [address] [facility] [place] [address] Marek Bonilla MD [address], [address] [place] [address] documented as of this encounter Results * (ABNORMAL) CBC (with Diff) (07/31/2016 9:40 AM EST) White Blood Cell 2.23(EXTER NAL/ABN) 4.4 - 10.8 EXTERNAL LAB Hemoglobin 12.6 12.0 - 16.0 EXTERNAL LAB Hematocrit 37.7 36.0 - 46.0 EXTERNAL LAB Platelet 167 130 - 400 EXTERNAL LAB Neutrophil Absolute (ANC) - Automated 1.17(EXTER NAL/ABN) 1.2 - 6.7 EXTERNAL LAB Blood specimen (specimen) 07/31/2016 9:40 AM EST Markel Borjas MD HEMATOLOGY ORDERAB LES Performing Organization Address [facility] Co de Phone Number EXTERNAL LAB * Mononucleosis Screen (07/20/2016 10:30 AM EST) Mononucleosis Screen neg neg - neg EXTERNAL LAB Blood specimen (specimen) 07/20/2016 10:30 AM EST Markel Borjas MD IMMUNOLOGY ORDERAB LES Performing Organization Address [facility] de Phone Number EXTERNAL LAB * Copper, serum (07/20/2016 10:30 AM EST) Pathologist [facility] Copper (NOVEMBER) 1.09 0.75 - 1.45 EXTERNAL LAB Blood specimen (specimen) 07/20/2016 10:30 AM EST Markel Borjas MD LAB SEND OUT ORDER JODIE Performing Organization Address [facility] de Phone Number EXTERNAL LAB * CMV PCR, Quantitative (07/20/2016 10:30 AM EST) Pathologist [facility] CMV PCR,Quantitati ve undetected EXTERNAL LAB Blood specimen (specimen) 07/20/2016 10:30 AM EST Markel Borjas MD MOLECULAR ORDERABL ES Performing Organization Address [facility] Co de Phone Number EXTERNAL LAB * (ABNORMAL) CBC (with Diff) (07/20/2016 10:30 AM EST) Pathologist [facility] White Blood Cell 1.61(A) 4.4 - 10.8 EXTERNAL LAB Hemoglobin 12.3 12.0 - 16.0 EXTERNAL LAB Hematocrit 37.2 36.0 - 46.0 EXTERNAL LAB Platelet 229 130 - 400 EXTERNAL LAB Blood specimen (specimen) 07/20/2016 10:30 AM EST Markel Borjas MD HEMATOLOGY ORDERAB LES EXTERNAL LAB documented in this encounter Visit Diagnoses Diagnosis Neutropenia, unspecified type documented in this encounter Care Teams Skilled Nursing Professional Relationship Specialty Start Date End Date Deborah Quiroga, MACHINE HAND PCP - General Family Medicine 03/24/16 02/04/23 documented as of this encounter
--- OUTSIDE RECORDS SUMMARY | 2024-04-04 14:20 | XMS_ITS | Encounter Summary ---
Author Organization Count Includes [facility] Address [facility] [place] [address] Care Team Providers Care Correction Officer [place] [employer] Name Role Phone Ashley Quirogan Cornelius ANURAG Primary Care Provider [phone] Encounter Details Date Type Department Care Team (Late st Contact Info) Description 08/11/2016 Telephone [place] [phone] Markel Borjas MD [address] [place] [address] Social History Tobacco Use Types Packs/Day Years [...] 4:15 PM EDT Office Visit Dermatology at [place] [address] [place] [address] Marek Bonilla MD [address], [place] [address] documented as of this encounter Visit Diagnoses Not on filedocumented in this encounter Care Teams Correction Officer [place] [employer] Relationship Specialty Start Date End Date Deborah Quiroga APRN PCP - General Family Medicine 03/24/16 02/04/23 documented as of this encounter
--- OUTSIDE RECORDS SUMMARY | 2024-04-04 14:20 | XMS_ITS | Encounter Summary ---
[place] [address] Care Team Providers Care Ceramic Painter Name Role Phone Deborah Quiroga ANURAG Primary Care Provider [phone] Reason for Visit * Reason Onset Date Comments Medical Care Coordination 07/31/2016 Encounter Details Date Type Department Care Team (Late st Contact Info) Description 07/31/2016 Telephone [place] [phone] Alexandrea Greenwood RN Medical Care Coordination Social [...] with Aydee of the [facility] lab who states they can draw pt's cbc on 08/04/15, RN faxed lab req to [phone] at Aydee's request. RN instructed pt on Dr. Borjas's direction above. Pt verbalized understanding. documented in this encounter Plan of Treatment Upcoming Encounters Date Type Department Care Team (Late st Contact Info) Description 03/01/2025 4:15 PM EDT Office Visit Dermatology at [place] [address] [facility] [address] [place] [address] Marek Bonilla MD [address] [address] documented as of this encounter Visit Diagnoses Not on filedocumented in this encounter Care Teams Ceramic Painter Relationship Specialty Start Date End Date Deborah Quiroga APRN PCP - General Family Medicine 03/24/16 02/04/23 documented as of this encounter
--- OUTSIDE RECORDS SUMMARY | 2024-04-04 14:20 | XMS_ITS | Encounter Summary ---
Author Organization [facility] Address [facility] [place] [address] Care Team Providers Care Brassiere Cup Mold Cutter Name Role Phone JunaidAshley hargrovezac Shields APRN Primary Care Provider [phone] Reason for Visit * Consultation (Urgent) - Closed Specialty Diagnoses / Procedures Referred By Contac t Referred To Contact Cardiac Surgery Diagnoses aortic stenosis, consideration for valve replacement Antelmo Burrell MD [address] [place] [address] Alirio Esparza MD [facility] [place] [address] Referral ID Status Reason Start Date Expiration Date V isits Requested Visits Authorized [id number] Closed Connection Center 03/04/2016 03/04/2017 1 1 Encounter Details Date Type Department Care Team (Late st Contact Info) Description 03/24/2016 10:40 AM EDT Office [place] [phone] Alirio Esparza MD Aortic valve stenosis, unspecified [...] This is a patient of Antelmo Burrell [facility] Cardiology. Mrs. Thacker is being [...] 30 minute visit, 20 minutes were spent [id number] with the patient discussing aortic stenosis and valve replacement. documented in this encounter Plan of Treatment Upcoming Encounters Date Type Department Care Team (Late st Contact Info) Description 03/01/2025 4:15 PM EDT Office Visit Dermatology at [place] [address] [place] [address] Marek Bonilla MD [address] [place] [address] documented as of this encounter Visit Diagnoses Diagnosis Aortic valve stenosis, unspecified etiology documented in this encounter Care Teams Brassiere Cup Mold Cutter Relationship Specialty Start Date End Date Deborah Quiroga APRN PCP - General Family Medicine 03/24/16 02/04/23 documented as of this encounter
--- OUTSIDE RECORDS SUMMARY | 2024-04-04 14:20 | XMS_ITS | Encounter Summary ---
[place] [address] Care Team Providers Care General Car Yard Supervisor Name Role Phone Ashley Quirogan Cornelius ANURAG Primary Care Provider [phone] Encounter Details Date Type Department Care Team (Late st Contact Info) Description 07/03/2016 External Results [place] [address] Matthew Cervantes, DO [address] [place] [address] Social History Tobacco Use Types Packs/Day Years [...] EDT Office Visit Dermatology at [place] [address] [place] [phone] Marek Bonilla MD [address] [facility], TOD[address] A DERMATOLOGY [place], [place] [phone] documented as of this encounter Procedures Procedure Name Priority Date/Time Associated Diagnosis Comments BONE MARROW ASPIRATION PERFO RMED WITH BONE MARRROW BIOPSY Routine 06/28/2016 documented in this encounter Results * BONE MARROW ASPIRATION PREFORMED WITH BONE MARRROW BIOPSY (06/28/2016) Matthew Cervantes DO GENERAL SURGI DANIEL ORDERABLES documented in this encounter Visit Diagnoses Not on filedocumented in this encounter Care Teams General Car Yard Supervisor Relationship Specialty Start Date End Date Deborah Quiroga, NON CLINICAL ADVISOR PCP - General Family Medicine 03/24/16 02/04/23 documented as of this encounter
--- OUTSIDE RECORDS SUMMARY | 2024-04-04 14:20 | XMS_ITS | Encounter Summary ---
Author Organization [facility] [place] [address] Care Team Providers Care Interior Horticulturist Name Role Phone Deborah Quiroga APRN Primary Care Provider [phone] Encounter Details Date Type Department Care Team (Latest Contact Info) Description 07/10/2016 2:54 PM EST - 07/10/2016 11:59 PM EST [place] [phone] Discharge Disposition: Home Social History Tobacco Use [...] Office Visit Dermatology at [place] [address] [place] [address] Marek Bonilla MD [address], [place] [address] documented as of this encounter Procedures Procedure Name Priority Date/Time Associated Diagnosis Comments BONE MARROW FINAL REPORT Routine 07/10/2016 3:43 PM EST documented in this encounter Results * Bone Marrow Final Report (07/10/2016 3:43 PM EST) Final Diagnosis [id number] ?Location: [facility] The signing pathologist has (i) examined the relevant preparation(s) for the specimen(s) and (ii) rendered or confirmed the diagnosis(es). . ? Bone Marrow Final DIAGNOSIS BONE MARROW (PERIPHERAL SMEAR, ASPIRATE SMEAR, TOUCH PREP, CLOT SECTION, CORE BIOPSY); [OSR# [id number], COLLECTED 06/23/2016, 19 SLIDES]: ?? 1. 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 Polytypic plasma cell staining, high background Lambda ?Polytypic plasma cell staining, high background Block: ? B2 (Core biopsy 2) Fixative: ?? Formalin ANTIBODY: ?? RESULT/COMMENT CD3 ? Scattered small lymphocytes and lymphoid aggregates highlighted CD20 ?Few scattered small lymphocytes stain ( ?? <CD3 in aggregates) CD138 ? Scattered plasma cells represent 3-4% of the cellularity [place] ? Polytypic plasma cell staining, high background Lambda ?Polytypic plasma cell staining, high background Note: The immunoperoxidase stains reported above were developed and their performance characteristics determined by [facility]. ??They have not been cleared [...] CONSULTATION CASE A - 19 slides labeled [id number], collection date 06/23/2016. [id number] Report to: [facility] Surgical Pathology Department [facility], [facility], 2nd Floor [address] [place], [place] ??[address] 07/13/2016 11:38 AM EST [facility] Consult Case 07/10/2016 3:43 PM EST 07/10/2016 3:43 PM EST Nitesh Pina Jr., MD PATHOLOGY/CYTOLOGY O RDERABLES Performing Organization Address City/State/[facility] Co de Phone Number [facility] [place] [address] documented in this encounter Visit Diagnoses Not on filedocumented in this encounter Care Teams Interior Horticulturist Relationship Specialty Start Date End Date Deborah Quiroga, ANURAG PCP - General Family Medicine 03/24/16 02/04/23 documented as of this encounter
--- OUTSIDE RECORDS SUMMARY | 2024-04-04 14:20 | XMS_ITS | Encounter Summary ---
Author Organization [facility] [place] [address] Care Team Providers Care Mutual Fund Manager Name Role Phone Junaid, Deborah Shields APRN Primary Care Provider [phone] Encounter Details Date Type Department Care Team (Latest Contact Info) Description 08/18/2016 4:40 PM EST [place] [phone] Aortic valve stenosis, unspecified etiology Social History [...] 4:15 PM EDT Office Visit Dermatology at [place] [address] [place] [phone] Marek Bonilla MD [address] [facility], [place] [address] documented as of this encounter Procedures Procedure Name Priority Date/Time Associated Diagnosis Comments ABORH RECHECK STATUS Routine 08/18/2016 4:50 PM EST TYPE AND SCREEN, SDP (FUTURE SURGERY, [facility]) Routine 08/18/2016 4:50 [...] Esparza MD BLOOD BANK LAB BETH SHANNONROMERO [facility] [place] [address] * Antibody screen (08/18/2016 4:50 PM EST) Ab Screen Interp Negative [facility] Expires at [id number] on: 09/24/2016 [facility] Comment: Corrected from 09/17/16 12:00 [Unknown] on 09/09/16 02:32 by Shireen Treviño Blood specimen (specimen) 08/18/2016 4:50 PM EST 08/18/2016 5:11 PM EST Narrative Resulting Agency Comment Spec In Lab Alirio Esparza MD BLOOD BANK LAB ORDSylvia ORTEGAROMERO [facility] [place] [address] * ABO/Rh Typing (08/18/2016 4:50 PM EST) ABORH Type B Pos [facility] Blood specimen (specimen) 08/18/2016 4:50 PM EST 08/18/2016 5:11 PM EST Narrative Resulting Agency Comment Spec In Lab Alirio Esparza MD BLOOD BANK LAB BETH ALEJO Lidia Organization Address City/State/ZIP Co de Phone Number [facility] [place] [address] * Basic Metabolic Panel (non-fasting) (08/18/2016 4:50 PM EST) Glucose 82 65 - 199 mg/dL [facility] Comment:Diabetes: >=200 mg/d L plus symptoms Blood Urea Nitrogen 12 8 - 18 mg/dL [facility] [...] - 107 mmol/L [facility] Carbon Dioxide 26 22 - 31 mmol/L [facility] Anion Gap 14 5 - 15 mmol/L [facility] Calcium 9.7 8.5 - 10.5 mg/dL [facility] Est Glomerular Filtration Rate >60 [...] the following links into your internet browser. [email or web address] Blood specimen (specimen) 08/18/2016 4:50 PM EST 08/18/2016 5:03 PM EST Narrative Resulting Agency Comment Spec In Lab Alirio Esparza MD CHEMISTRY ORDERABLE S Performing Organization Address City/State/[facility] Co de Phone Number [facility] [place] [address] documented in this encounter Visit Diagnoses Diagnosis Aortic valve stenosis, unspecified etiology documented in this encounter Care Teams Mutual Fund Manager Relationship Specialty Start Date End Date Deborah Quiroga, ATHLETIC EVENTS SCORER PCP - General Family Medicine 03/24/16 02/04/23 documented as of this encounter
--- OUTSIDE RECORDS SUMMARY | 2024-04-04 14:20 | XMS_ITS | Encounter Summary ---
Author Organization [facility] Address [facility] [place] [address] Care Team Providers Care Women Nurse Name Role Phone Junaid, Deborah Shields APRN Primary Care Provider [phone] Reason for Visit * Auth/Cert Specialty Diagnoses / Procedures Referred By Crispin t Referred To Contact Diagnoses AVS Procedures CARDIAC CATHETERIZATION Referral ID Status Reason Start Date Expiration Date Visits Re quested Visits Authorized [id number] 1 1 Encounter Details Date Type Department Care Team (Late st Contact Info) Description 06/03/2016 7:30 AM EDT - 06/03/2016 8:30 AM EDT [place] [phone] Mario Alberto Escobedo MD [facility] [address] CARDIAC CATHETERIZATION Social History Tobacco Use Types [...] by your doctor, do not take any mrzm-ixc-lguqwsn medicinesor herbal preparations without first discussing this with your doctor or pharmacist. There is the possibility of side effects and interactions when these are combined. Follow Up Care Who to call with questions or problems If there are any questions or problems that you think might be related to your cardiac cath or angioplasty, contact the state manager manager commission by calling [facility] at . * Patient Instructions* Felicia Corrigan - 06/03/2016 9:33 AM EDT Cardiology Instructions Call your doctor if: Chest pain, dyspnea, pain or swelling in legs occurs. If you have non-emergent questions between now and the time of your follow up appointments: -During 8am-5pm Wednesday through Wednesday call [phone] to speak with a nurse in the cardiology clinic -All other times call [phone] and ask to speak to the canvas products sales representative manager commission. MEDICATIONS - restart your spironolactone, discontinue prior [...] Appointments: Primary care provider: Cardiology: Deborah Hahn, VEGETABLE I FARMWORKER [phone] Follow up as planned or as needed. Dr. Esparza [phone] Other follow-up appointment: Hematology - Dr. Mario [...] EDT Office Visit Dermatology at [place] [address] [facility] [place] [address] Marek Bonilla MD [address] [place] [address] documented as of this encounter Procedures Procedure [...] Green Tube HOLD (06/03/2016 11:45 AM EDT) [facility] Green Hold Sample in lab. [facility] Blood specimen (specimen) Venous Draw / Unknown 06/03/2016 11:45 AM EDT 06/03/2016 12:12 PM EDT Mario Alberto Escobedo MD CHEMISTRY ORDERABLES Performing Organization Address [facility] de Phone Number [facility] [place] [address] * Methylmalonic acid, serum (06/03/2016 11:45 AM EDT) [facility] Methylmalonic Acid (NOVEMBER) 0.21 <=0.40 nmol/mL [facility] Comment: Test Performed by: [place] [address] Housekeeping Aid: Raymond Chaudhry II, M.D., Ph.D. Blood specimen (specimen) 06/03/2016 11:45 AM EDT 06/03/2016 1:57 PM EDT Narrative Resulting Agency Comment Spec In Lab Mario Alberto Escobedo MD LAB SEND OUT ORDERAB LES Performing Organization Address [facility] Co de Phone Number [facility] [place] [address] * Granulocyte Antibody (06/03/2016 11:45 AM EDT) [facility] Granulocyte Ab (NOVEMBER) Negative Not Applicable [facility] Comment: ADDITIONAL INFORMATION Method: Immunofluorescent Assay Performing Laboratory CLIA# [id number] This test was developed and its performance characteristics determined by [facility] in a manner consistent with CLIA requirements. This test has not been cleared or approved by the U.S. Food and Drug Administration. Test Performed by: [facility] - [address] [address] Housekeeping Aid: Raymond Chaudhry II, M.D., Ph.D. Blood specimen (specimen) 06/03/2016 11:45 AM EDT 06/03/2016 1:57 PM EDT Narrative Resulting Agency Comment Spec In Lab Mario Alberto Escobedo MD LAB SEND OUT ORDERAB LES Performing Organization Address [facility] Co de Phone Number [facility] [place] [address] * TSH (06/03/2016 11:45 AM EDT) Thyroid Stimulating Hormone 2.18 0.27 - 4.20 mcIU/mL [facility] Blood specimen (specimen) 06/03/2016 11:45 AM EDT 06/03/2016 12:11 PM EDT Narrative Resulting Agency Comment Spec In Lab Mario Alberto Escobedo MD CHEMISTRY ORDERABLES Performing Organization Address [facility] Co de Phone Number [facility] [place] [address] * Homocysteine Total, Plasma (06/03/2016 11:45 AM EDT) Homocystine 9 <=15 mcmol/L [facility] Blood specimen (specimen) 06/03/2016 11:45 AM EDT 06/03/2016 12:11 PM EDT Narrative Resulting Agency Comment Spec In Lab Mario Alberto Escobedo MD CHEMISTRY ORDERABLES Performing Organization Address [facility] Co de Phone Number [facility] [place] [address] * Folate, serum (06/03/2016 11:45 AM EDT) Folate >20.0 4.8 - 24.2 ng/mL [facility] Blood specimen (specimen) 06/03/2016 11:45 AM EDT 06/03/2016 12:04 PM EDT Narrative Resulting Agency Comment Spec In Lab Mario Alberto Escobedo MD CHEMISTRY ORDERABLES Performing Organization Address [facility] Co de Phone Number [facility] [place] [address] * (ABNORMAL) Sedimentation rate (06/03/2016 11:45 AM EDT) Sedimentation Rate Automated 41(H) 0 - 20 mm/hr [facility] Blood specimen (specimen) 06/03/2016 11:45 AM EDT 06/03/2016 12:04 PM EDT Narrative Resulting Agency Comment Spec In Lab Mario Alberto Escobedo MD HEMATOLOGY ORDERABLE S Performing Organization Address [facility] Co de Phone Number [facility] [place] [address] * Lactate Dehydrogenase (06/03/2016 11:45 AM EDT) Lactate Dehydrogenase 164 110 - 220 unit/L [facility] Blood specimen (specimen) 06/03/2016 11:45 AM EDT 06/03/2016 12:11 PM EDT Narrative Resulting Agency Comment Spec In Lab Mario Alberto Escobedo MD CHEMISTRY ORDERABLES Performing Organization Address [facility] Co de Phone Number [facility] [place] [address] * Comprehensive metabolic panel (non-fasting) (06/03/2016 11:45 [...] the following links into your internet browser. [email or web address] Blood specimen (specimen) 06/03/2016:45 AM EDT 06/03/2016 12:11 PM EDT Narrative Resulting Agency Comment Spec In Lab Mario Alberto Escobedo MD CHEMISTRY ORDERABLES [facility] [place] [address] documented in this encounter Visit Diagnoses Diagnosis [...] Hernandez) documented in this encounter Care Teams Women Nurse Relationship Specialty Start Date End Date Deborah Quiroga APRN PCP - General Family Medicine 03/24/16 02/04/23 documented as of this encounter
--- OUTSIDE RECORDS SUMMARY | 2024-04-04 14:20 | XMS_ITS | Encounter Summary ---
Author Organization [facility] Address [facility] [place] [address] Care Team Providers Care Client Delivery Manager Name Role Phone Deborah Quiroga APRN Primary Care Provider [phone] Encounter Details Date Type Department Care Team (Late st Contact Info) Description 06/16/2016 Orders Only Hematology [place] [address] Nitesh Pina Jr., MD [facility] [address] [place] [address] Cyclical neutropenia Social History Tobacco Use Types [...] 4:15 PM EDT Office Visit Dermatology at [place] [address] [facility] [place] [address] Marek Bonilla MD [address] DERMATOLOGY [place], [place] [address] documented as of this encounter Visit Diagnoses Diagnosis Cyclical neutropenia Cyclic neutropenia documented in this encounter Care Teams Client Delivery Manager Relationship Specialty Start Date End Date Deborah Quiroga APRN PCP - General Family Medicine 03/24/16 02/04/23 documented as of this encounter
--- OUTSIDE RECORDS SUMMARY | 2024-04-04 14:20 | XMS_ITS | Encounter Summary ---
Author Organization [facility] [place] [address] Care Team Providers Care Associate Creative Director Name Role Phone Deborah Quiroga APRN Primary Care Provider [phone] Encounter Details Date Type Department Care Team (Late st Contact Info) Description 07/31/2016 External Results Hematology [place] [address] Alexandrea [place] RN Neutropenia, unspecified type Social [...] 4:15 PM EDT Office Visit Dermatology at [place] [address] [place] [phone] Marek Bonilla MD [address] [place] [address] documented as of this encounter Procedures Procedure [...] type documented in this encounter Care Teams Associate Creative Director Relationship Specialty Start Date End Date Deborah Quiroga, ANALYSIS DIRECTOR PCP - General Family Medicine 03/24/16 02/04/23 documented as of this encounter
--- OUTSIDE RECORDS SUMMARY | 2024-04-04 14:20 | XMS_ITS | Encounter Summary ---
Author Organization [facility] [place] [address] Care Team Providers Care Vp Account Director Name Role Phone Junaid, Deborah Shields APRN Primary Care Provider [phone] Encounter Details Date Type Department Care Team (Late st Contact Info) Description 05/19/2016 10:00 AM EDT Office [place] [phone] Alirio Esparza MD Nonrheumatic aortic valve stenosis [...] 4:15 PM EDT Office Visit Dermatology at [place] [address] [facility] [place] [address] Marek Bonilla MD [address] [facility], [place] [address] documented as of this encounter Results * [...] (Bezet) 448 ms MUSE SYSTEM Calculated P [place] 37 degrees MUSE SYSTEM Calculated R [place] 31 degrees MUSE SYSTEM Calculated T [place] 25 degrees MUSE SYSTEM INTERPRETATION Normal sinus [...] LABORATORY Est Glomerular Filtration Rate 60 >=60 [facility] Comment: This [...] the following links into your internet browser. [email or web address] Blood specimen (specimen) 05/19/2016 11:32 AM EDT 05/19/2016 11:41 AM EDT Narrative Resulting Agency Comment Spec In Lab Alirio Esparza MD CHEMISTRY ORDERABLE S Performing Organization Address City/State/[facility] Co de Phone Number [facility] [place] [place] [address] documented in this encounter Visit Diagnoses Diagnosis Nonrheumatic aortic valve stenosis Aortic valve disorders Nonrheumatic aortic valve stenosis Aortic valve disorders documented in this encounter Care Teams Vp Account Director Relationship Specialty Start Date End Date Deborah Quiroga APRN PCP - General Family Medicine 03/24/16 02/04/23 documented as of this encounter
--- OUTSIDE RECORDS SUMMARY | 2024-04-04 14:20 | XMS_ITS | Encounter Summary ---
Author Organization [facility] Address [facility] [place] [address] Care Team Providers Care Monitor Tech Name Role Phone EitanMagnusDanni ANURAG Primary Care Provider Encounter Details Date Type Department Care Team (Latest Contact Info) Description 01/23/2014 7:45 AM EDT - 01/23/2014 5:50 PM EDT Hospital Encounter [place] [address] Alan Jacobson MD [facility] [place] [address] Cardiomyopathy; SOB (shortness of breath) Discharge Disposition: [...] by your doctor, do not take any wqmv-eqh-rjthnfl medicines or herbal preparations without first discussing this with your doctor or pharmacist. There is the possibility of side effect and interactions when these are combined. Follow up Care Who to Call with Questions or Problems If there are any questions or problems that you think might be related to your cardiac cath or angioplasty, contact the rail track layer development consultant by calling [facility] at . documented in this encounter [...] PM EDT Office Visit Dermatology at [place] [address] [facility] [place] [address] Marek Bonilla MD [address] [place] [address] documented as of this encounter Procedures Procedure [...] ANDREW ECHOLS M ?(Age): 1955(58) Med Rec#: ?[id number] ? Sex: ?F ? Site Loc: ?[facility] ? Ht / Wt: ??158(cm)/93(kg) Pt. Loc: ? Adult Floor ?BSA: ?2.02 Study Date: ?01/23/2014 ? Pt. Type: Inpatient Tape: ? Referring: Lee Kincaid ([id number]) Referring: ANNALISA Paper Deliverer: Miguel Beverly Diagnosis:CPT Code(s): ??Echo Full (83043), ??Spectral Doppler (22891), Color Doppler (33856), Indication(s): ??Aortic stenosis Rhythm: Sinus HR ?BP [...] ? Mid-Inferior ?Hypokinetic ? Mid-Inferoseptal ?Hypokinetic ? Minerva-Septal ? Hypokinetic ? [place]-Anterior ? Hypokinetic ? [place]-Lateral ?Hypokinetic ? [place]-Inferior ? Hypokinetic ? [place]-Tip ?Hypokinetic ? Chambers ?Value ?Units (Range) ? [...] 01/23/2014 16:34:37 Images reviewed and interpretation verified [facility] Cardiac Ultrasound Laboratory Procedure Note Lee Kincaid MD - 01/23/2014 Procedure: Transthoracic Echocardiogram Patient: ANDREW Mejias (Age): 1955(58) Med Rec#: [id number] Sex: F Site Loc: [facility] Ht / Wt: 158(cm)/93(kg) Pt. Loc: Adult Floor BSA: 2.02 Study Date: 01/23/2014 Pt. Type: Inpatient Tape: Referring: Lee Kincaid ([id number]) Referring: ANNALISA Paper Deliverer: Miguel Beverly Diagnosis:CPT Code(s): Echo Full (40441), Spectral Doppler (05283), Color Doppler (34566), Indication(s): Aortic stenosis Rhythm: Sinus HR BP [...] Hypokinetic Mid-Posterolateral Hypokinetic Mid-Inferior Hypokinetic Mid-Inferoseptal Hypokinetic Minerva-Septal Hypokinetic Minerva-Anterior Hypokinetic Minerva-Lateral Hypokinetic Minerva-Inferior Hypokinetic Minerva-Tip Hypokinetic Chambers Value Units (Range) IVSd 2D [...] 01/23/2014 16:34:37 Images reviewed and interpretation verified [facility] Cardiac Ultrasound Laboratory Lee Kincaid MD [...] RN) documented in this encounter Care Teams Monitor Tech Relationship Specialty Start Date End Date Danni Laird APRN [address] [place] [address] PCP - General 01/23/14 11/11/14 documented as of this encounter
--- OUTSIDE RECORDS SUMMARY | 2024-04-04 14:20 | XMS_ITS | Encounter Summary ---
Author Organization Formerly [facility], [facility] Address [facility] [place] [address] Care Team Providers Care Piece Dyer Name Role Phone Ashley Quirogazac Shields APRN Primary Care Provider [phone] Encounter Details Date Type Department Care Team (Latest Contact Info) Description 06/19/2016 - 06/19/2016 11:59 PM EST Hospital Encounter [place] [address] Nitesh Pina Jr., MD [facility] [address] [facility] [address] HEMATOLOGY [place] [address] Pain Discharge Disposition: Home Social History Tobacco [...] EDT Office Visit Dermatology at [place] [address] [place] [address] Marek Bonilla MD [address], [place] [address] documented as of this encounter Procedures Procedure Name Priority Date/Time Associated Diagnosis Comments FILM LIBRARY STORAGE ONLY CT CHEST ABDOMEN PELVIS Routine 06/19/2016 12:00 AM EST Pain documented in this encounter Results * Film Library- Storage Only CT Chest Abdomen Pelvis (06/19/2016 12:00 AM EST) Narrative [facility] - 06/20/2016 8:53 AM EST This exam is for storage only and is auto-finalizing. Nitesh Pina Jr., MD IMG FILM LIBRARY ORD ERABLES [place], [place] documented in this encounter Visit Diagnoses Diagnosis Pain Generalized pain documented in this encounter Care Teams Piece Dyer Relationship Specialty Start Date End Date Deborah Quiroga APRN PCP - General Family Medicine 03/24/16 02/04/23 documented as of this encounter
--- OUTSIDE RECORDS SUMMARY | 2024-04-04 14:20 | XMS_ITS | Encounter Summary ---
Author Organization Formerly [facility] Address [facility] [place] [address] Care Team Providers Care Principal Research Economist Name Role Phone Deborah Quiroga APRN Primary Care Provider [phone] Encounter Details Date Type Department Care Team (Latest Contact Info) Description 05/19/2016 11:52 AM EDT - 05/19/2016 11:59 PM EDT Hospital Encounter XRay at [address] [place] [address] Alirio Esparza MD Nonrheumatic aortic valve stenosis [...] 4:15 PM EDT Office Visit Dermatology at [place] [address] [place] [address] Marek Bonilla MD [address], [place] [address] documented as of this encounter Procedures Procedure [...] disorders documented in this encounter Care Teams Principal Research Economist Relationship Specialty Start Date End Date Deborah Quiroga, WELDING ESTIMATOR PCP - General Family Medicine 03/24/16 02/04/23 documented as of this encounter
--- OUTSIDE RECORDS SUMMARY | 2024-04-04 14:20 | XMS_ITS | Encounter Summary ---
Author Organization [facility] [place] [address] Care Team Providers Care Credit And Collections Analyst Name Role Phone Deborah Quiroga APRN Primary Care Provider [phone] Encounter Details Date Type Department Care Team (Late st Contact Info) Description 08/18/2016 4:20 PM EST Clinical [place] [address] Social History Tobacco Use Types Packs/Day Years [...] 4:15 PM EDT Office Visit Dermatology at [place] [address] [place] [address] Marek Bonilla MD [address], [place] [address] documented as of this encounter Visit Diagnoses Not on filedocumented in this encounter Care Teams Credit And Collections Analyst Relationship Specialty Start Date End Date Deborah Quiroga APRN PCP - General Family Medicine 03/24/16 02/04/23 documented as of this encounter
--- OUTSIDE RECORDS SUMMARY | 2024-04-04 14:20 | XMS_ITS | Encounter Summary ---
[place] [address] Care Team Providers Care Proof Inspector Name Role Phone Jerel Sofia Garcia APRN Primary Care Provider [phone] Encounter Details Date Type Department Care Team (Late st Contact Info) Description 11/12/2014 8:10 AM EDT - 11/12/2014 11:59 PM EDT Hospital [place] [address] CLINIC, DR ABE Burrell, Antelmo Porter MD [address] [place] [address] Discharge Disposition: Home Social History Tobacco Use [...] 4:15 PM EDT Office Visit Dermatology at [place] [address] [place] [address] Marek Bonilla MD [address], [place] [address] documented as of this encounter Procedures Procedure [...] mLs documented in this encounter Care Teams Proof Inspector Relationship Specialty Start Date End Date Sofia Beltrán APRN [address] [place] [address] PCP - General 11/12/14 03/23/16 documented as of this encounter
--- OUTSIDE RECORDS SUMMARY | 2024-04-04 14:20 | XMS_ITS | Encounter Summary ---
[place] [address] Care Team Providers Care Sintering Press Operator Name Role Phone Deborah Quiroga APRN Primary Care Provider [phone] Encounter Details Date Type Department Care Team (Late st Contact Info) Description 08/04/2016 External Results [place] [address] Alexandrea Greenwood RN Neutropenia, unspecified type Social [...] 4:15 PM EDT Office Visit Dermatology at [place] [address] [place] [address] Marek Bonilla MD [address], [place] [address] documented as of this encounter Procedures Procedure [...] type documented in this encounter Care Teams Sintering Press Operator Relationship Specialty Start Date End Date Deborah Quiroga, HEELER MACHINE PCP - General Family Medicine 03/24/16 02/04/23 documented as of this encounter
--- OUTSIDE RECORDS SUMMARY | 2024-04-04 14:20 | XMS_ITS | Encounter Summary ---
Author Organization [facility] Address [facility] [place] [address] Care Team Providers Care Costume Director Name Role Phone Deborah Quiroga ANURAG Primary Care Provider [phone] Encounter Details Date Type Department Care Team (Late st Contact Info) Description 07/13/2016 External Results [place] [address] Provider, Scanning Social History Tobacco Use Types [...] PM EDT Office Visit Dermatology at [place] [address] [place] [address] Marek Bonilla MD [address], [place] [address] documented as of this encounter Procedures Procedure Name Priority Date/Time Associated Diagnosis Comments SURGICAL PATHOLOGY SCAN Routine 07/13/2016 documented in this encounter Results * Scan Doc: Surgical Pathology (07/13/2016) Nitesh Pina Jr., MD MEDIA MGR SCAN EXT O RDR/RSLT documented in this encounter Visit Diagnoses Not on filedocumented in this encounter Care Teams Costume Director Relationship Specialty Start Date End Date Deborah Quiroga APRN PCP - General Family Medicine 03/24/16 02/04/23 documented as of this encounter
--- OUTSIDE RECORDS SUMMARY | 2024-04-04 14:20 | XMS_ITS | Encounter Summary ---
Author Organization [facility] Address [facility] [place] [address] Care Team Providers Care Core Extruder Name Role Phone Junaid Deborah Shields APRN Primary Care Provider [phone] Encounter Details Date Type Department Care Team (Latest Contact Info) Description 05/19/2016 11:00 AM EDT Clinical [place] [address] Nonrheumatic aortic valve stenosis Social History Tobacco [...] 4:15 PM EDT Office Visit Dermatology at [place] [address] [place] [address] Marek Bonilla MD [address], [place] [address] documented as of this encounter Procedures Procedure [...] (Bezet) 448 ms MUSE SYSTEM Calculated P [place] 37 degrees MUSE SYSTEM Calculated R [place] 31 degrees MUSE SYSTEM Calculated T [place] 25 degrees MUSE SYSTEM INTERPRETATION Normal sinus rhythm Normal ECG No previous ECGs available Confirmed by MD Becca, Deangelo ([id number]) on 05/19/2016 5:23:33 PM MUSE SYSTEM 05/19/2016 11:4 3 AM EDT 05/19/2016 5:23 PM EDT Alirio Esparza MD ECG ORDERABLES MUSE SYSTEM documented in this encounter Visit Diagnoses Diagnosis Nonrheumatic aortic valve stenosis Aortic valve disorders documented in this encounter Care Teams Core Extruder Relationship Specialty Start Date End Date Deborah Quiroga APRN PCP - General Family Medicine 03/24/16 02/04/23 documented as of this encounter
--- OUTSIDE RECORDS SUMMARY | 2024-04-04 14:21 | XMS_ITS | Encounter Summary ---
[place] [address] Care Team Providers Care Director Social Service Name Role Phone Mitchell Wilkes MD Primary Care Provider [phone] Reason for Visit * Reason Onset Date Comments Other 01/18/2014 Encounter Details Date Type Department Care Team (Late st Contact Info) Description 01/18/2014 Telephone Cardiology at [address] [address] Jesusita Garces Other Social History [...] PM EDT Office Visit Dermatology at [address] [address] Marek Bonilla MD [address] [place] [address] RD, [place] [address] documented as of this encounter Visit Diagnoses Not on filedocumented in this encounter Care Teams Director Social Service Relationship Specialty Start Date End Date Mitchell Wilkes MD [facility] PCP - General 06/24/10 01/19/14 documented as of this encounter
[2024-04-06 13:53] VITALS: BP 127/66; PULSE 74; O2SAT 97
--- OUTSIDE RECORDS SUMMARY | 2024-04-06 13:54 | XMS_ITS | Encounter Summary ---
Author Organization [facility] Address [address] [place] [address] Care Team Providers Care Answerer Name Role Phone Unavailable Primary Care Provider Unavailabl e Encounter Details Date Type Department Care Team (Late st Contact Info) Description 04/20/2005 Results Only [facility] conversion [address] [place] [address] Ziggy Valiente MD [address] [place] [id number] Social History Tobacco Use Types Packs/Day Years [...] ? 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 Accession #: ? [id number] ? : ? 1955 (Age: 49) ??F [...] correlation with endoscopic appearance is recommended. (Dr. Chino)/[facility] Document reviewed and electronically signed by: [...] is entirely submitted in one cassette. ??(Arabella Santos)/[facility] End of Report PAUL ARELLANO 04/20/2005 04/21/2005 15: 04 EDT Ziggy Valiente MD PATHOLOGY ORDERABLES PAUL ARELLANO [address] [place] [address] documented in this encounter Visit Diagnoses Not on filedocumented in this encounter
--- OUTSIDE RECORDS SUMMARY | 2024-04-06 13:54 | XMS_ITS | Encounter Summary ---
[place] [address] Care Team Providers Care Director Digital Name Role Phone Magdalena Acosta MD Primary Care Provider [phone] Reason for Visit * Reason Onset Date Comments Pre Procedure Call 03/01/2024 DAPT hold for EGD and colo? Encounter Details Date Type Department Care Team (Late st Contact Info) Description 03/01/2024 Telephone Cardiology at [address] [phone] Cynthia Monsalve RN Pre Procedure Call (DAPT hold for EGD and colo?) Social History Tobacco Use Types Packs/Day Years Used Date Smoking Tobacco: Never Smokeless Tobacco: Never Alcohol Use Standard Drinks/Week Comments No 0 (1 standard drink = 0.6 oz pur e alcohol) none [facility] Inpatient Questions Answer Date Recorded Does Anyone [...] safe. Jay Message above left with Yenifer (faucet polisher), who would be leaving this note in patient's chart for providers to schedule patient. No further questions or needs at this time. This nurse stated, note will be placed regarding this call in our chart for patient. Kezia Whitney RN, BSN Ambulatory Cardiology Clinic, [facility] [phone] * Telephone Encounter - Cynthia Monsalve RN - 03/01/2024 2:09 PM EDT Nurse Veronica from [facility] called, requesting a hold on ASA and/or Plavix for the patient's anticipated EGD and colonoscopy. -Cynthia Monsalve RN documented in this encounter Plan of Treatment Upcoming Encounters Date Type Department Care Team (Late st Contact Info) Description 03/01/2025 4:15 PM EDT Office Visit Dermatology at [place] [address] [place] [address] Marek Bonilla MD [address], [place] [address] documented as of this encounter Visit Diagnoses Not on filedocumented in this encounter Care Teams Director Digital Relationship Specialty Start Date End Date Magdalena Acosta MD [address] [place] [address] PCP - General Family Medicine 02/05/23 documented as of this encounter
--- OUTSIDE RECORDS SUMMARY | 2024-04-06 13:54 | XMS_ITS | Clinical Summary ---
Author Organization [facility] Address [facility] [place] [address] Care Team Providers Care Bone Char Puller Name Role Phone Magdalena Acosta MD Primary Care Provider [phone] Allergies No known active allergies Medications Medication [...] fraction 05/08/2023 Mild coronary artery disease by [facility] 11/09/2022 Heart failure with reduced e jection [...] Care Team Description 03/01/2024 Telephone Cardiology at [address] [address] Cynthia Monsalve RN Pre Procedure Call (DAPT hold for EGD and colo?) 02/22/2024 4:15 PM EDT Office Visit Dermatology at [address] [address] Marek Bonilla MD Seborrheic keratosis; [...] 4:15 PM EDT Office Visit Dermatology at [place] [address] [place] [address] Marek Bonilla MD [address], [place] [address] Health Maintenance Due Date Last Done Comments [...] 06/05/2036 06/05/2021 Medical Devices Implanted Type Area Gumming Machine Operator Device Identifier Shelf Expiration Date Model / Serial / Lot Valve,Aor,Pericar d,Magna,25mm ([id number]) - [id number] Implanted:Qty: 1 on 09/21/2016 by Alirio Esparza MD at [facility] IMPLANTS N/A: Heart DO NOT USE [employer] - [id number] 06/02/2020 [id number] / / [id number] Cable,Blnt,Ss,38i n ([id number]) - [id number] Implanted:Qty: 4 on 09/21/2016 by Alirio Esparza MD at [facility] IMPLANTS N/A: Chest [employer] - [id number] 04/29/2021 [id number] / / [id number] Patch,Cav,Pericar d,2x5cm ([id number]) (Autoreq) - [id number] Implanted:Qty: 1 on 09/21/2016 by Alirio Esparza MD at [facility] IMPLANTS N/A: Heart DO NOT USE [employer] - [id number] 04/21/2018 [id number] / / [id number] Tavr-05/12/2023 Implanted:Qty: 1 on 05/12/2023 by Antelmo Sharma MD Other Heart [email or web address] - JAIME LI [id number] / [id number] / Description:JAIME LIFES[employer]E NCES ABBY 3 ULTRA [...] - 199 mg/dL [facility] Comment:Diabetes: >=200 mg/d L plus symptoms Blood Urea Nitrogen 19(H) 8 - 18 mg/dL [facility] Creatinine 0.81 0.70 - 1.20 mg/dL [facility] Sodium 142 135 - 145 mmol/L [facility] Potassium 3.8 3.5 - 5.0 mmol/L [facility] Comment: Please note: ??Patients with WBC >100,000 may have falsely elevated Potassium levels. ??For accurate Potassium quantification in these patients send serum separator tube (gold top) for subsequent determinations. ??Contact the Clinical Chemistry Laboratory if there are any questions. Chloride 104 98 - 107 mmol/L [facility] Carbon Dioxide 26 22 - 31 mmol/L [facility] Anion Gap 12 5 - 15 mmol/L [facility] Calcium 10.2 8.5 - 10.5 mg/dL [facility] Protein, Total 7.4 6.1 - 8.0 g/dL [facility] Albumin 4.1 3.2 - 5.2 g/dL [facility] Aspartate Aminotransferase 24 0 - 30 unit/L [facility] Alanine Aminotransferase 12 0 - 30 unit/L [facility] Alkaline Phosphatase 93 35 - 105 unit/L [facility] Bilirubin, Total 0.3 0.2 - 1.3 mg/dL [facility] Est Glomerular Filtration Rate 80 >=60 mL/min/1. 73 m?? [facility] Comment: This patient's estimated GFR was [...] MD CHEMISTRY ORDERABLE S Performing Organization Address City/State/[facility] Co de Phone Number [facility] [place] [address] * DXA Central Spine, Hip, and/or Whole Body (Generic) (06/05/2021 11:58 AM EDT) PT CLASS O RAD ADMITDTTM RAD PT RAD INFO [id number]^E VERETT^DEBORAH ^E RAD EXAM DESC XDXAC^DEXA SCAN [...] have questions please contact the health care transition coordinator that requested your imaging first. ? [...] who have questions please contactthe health care transition coordinator that requested your imaging first. Deborah Quiroga CAREER SERVICES OFFICER IMG DEXA ORDERABLES * Mammo Screening Cad Bilateral (06/05/2021 11:42 AM EDT) PT CLASS O DH RAD ADMITDTTM DH RAD PT DH RAD INFO [id number]^EV ERETT^DEBORAH^E DH RAD EXAM DESC MADDSC^SCREEN MAMMO [...] have questions please contact the health care transition coordinator that requested your imaging first. ? [...] who have questions please contactthe health care transition coordinator that requested your imaging first. Deborah [...] capacity to make decision: Yes Care Teams Bone Char Puller Relationship Specialty Start Date End Date Magdalena Acosta MD [address] [place] [address] PCP - General Family Medicine 02/05/23
--- OUTSIDE RECORDS SUMMARY | 2024-04-06 13:54 | XMS_ITS | Encounter Summary ---
Author Organization [facility] [place] [address] Care Team Providers Care Brief Writer Name Role Phone Magdalena Acosta MD Primary Care Provider [phone] Encounter Details Date Type Department Care Team (Late st Contact Info) Description 07/08/2023 10:15 AM EST Office Visit Cardiology at [address] [phone] Severe aortic stenosis Social History Tobacco Use [...] 4:15 PM EDT Office Visit Dermatology at [place] [address] [place] [address] Marek Bonilla MD [address], [place] [address] documented as of this encounter Procedures Procedure [...] (Bezet) 449 ms MUSE SYSTEM Calculated P [place] 66 degrees MUSE SYSTEM Calculated R [place] 60 degrees MUSE SYSTEM Calculated T [place] 53 degrees MUSE SYSTEM INTERPRETATION Normal sinus rhythm Minimal voltage criteria for LVH, may be normal variant ( Sokolow-Orozco ) ST & T wave abnormality, consider lateral ischemia ??vs. repolarization abnormality from LVH Abnormal ECG When compared with ECG of 13-MAY-2023 09:22, Premature ventricular complexes are no longer Present Minimal criteria for Septal infarct are no longer Present Confirmed by Maxx Best ([id number]) on 07/09/2023 10:07:22 AM MUSE SYSTEM 07/08/2023 10:2 7 AM EST 07/09/2023 10:07 AM EST Brody Kaplan APRN ECG ORDERABLES MUSE SYSTEM documented in this encounter Visit Diagnoses Diagnosis Severe aortic stenosis Aortic valve disorders documented in this encounter Care Teams Brief Writer Relationship Specialty Start Date End Date Magdalena Acosta MD [address] [place] [address] PCP - General Family Medicine 02/05/23 documented as of this encounter
--- OUTSIDE RECORDS SUMMARY | 2024-04-06 13:54 | XMS_ITS | Encounter Summary ---
[place] [address] Care Team Providers Care Product Line Manager Name Role Phone Magdalena Acosta MD Primary Care Provider [phone] Encounter Details Date Type Department Care Team (Latest Contact Info) Description 10/05/2023 10:52 AM EST - 10/05/2023 11:59 PM [facility] En[place] [address] Mixed connective tissue disease Discharge Disposition: Home [...] 4:15 PM EDT Office Visit Dermatology at [place] [address] [place] [address] Marek Bonilla MD [address], [place] [address] documented as of this encounter Procedures Procedure [...] PFT FEV1/FVC Pre-BD Z-Score 0 COMPAS PFT EIS85-40 Actual Pre-BD 2.41 % COMPAS PFT ZJD01-05 Predicted 1.8 % COMPAS PFT TJG35-79 Pre-BD % of Predicted 134 % COMPAS PFT BQO08-08 Pre-BD Z-Score 0.81 COMPAS PFT DLCO Hb [...] tissue documented in this encounter Care Teams Product Line Manager Relationship Specialty Start Date End Date Magdalena Acosta MD [address] [place] [address] PCP - General Family Medicine 02/05/23 documented as of this encounter
--- OUTSIDE RECORDS SUMMARY | 2024-04-06 13:54 | XMS_ITS | Encounter Summary ---
Author Organization [facility] [place] [address] Care Team Providers Care Food Safety Scientist Name Role Phone Magdalena Acosta MD Primary Care Provider [phone] Encounter Details Date Type Department Care Team (Late st Contact Info) Description 12/02/2023 11:15 AM EDT Office [place] [address] Magdalena Peralta MD [facility] [place] [address] Mixed connective tissue disease Social History Tobacco [...] 1:5120 speckled; VIC negative; Myositis panel with ASSOCIATE AUTOMATION ENGINEER ab 149.1 (positive); Anti U1RNP IgG [...] list of questions that she sent via [facility] ahead of her visit, which we [...] exposure. She has an appointment with her Health Unit Coordinator scheduled in January. (Dr Bonilla in [place]) ROS (positives in bold): Gen: no fevers, [...] but I encouraged her to contact her Health Unit Coordinator to see if she could have her [...] Dr. Tanisha Peralta MD Rheumatology Fellow Pager: [phone] * Federico Yee MD - 12/02/2023 11:15 [...] 4:15 PM EDT Office Visit Dermatology at [place] [address] [place] [address] Marek Bonilla MD [address] [facility] [place] [address] Scheduled Orders Name Type Priority Associated Diagnoses Orde r Schedule EKG 12 Lead ECG Routine Mixed connective tissue disease Expected: 12/02/2023, Expires: 06/03/2024 documented as of this encounter Visit Diagnoses Diagnosis Mixed connective tissue disease Other specified diffuse disease of connective tissue documented in this encounter Care Teams Food Safety Scientist Relationship Specialty Start Date End Date Magdalena Acosta MD [address] [place] [address] PCP - General Family Medicine 02/05/23 documented as of this encounter
--- OUTSIDE RECORDS SUMMARY | 2024-04-06 13:54 | XMS_ITS | Encounter Summary ---
Author Organization [facility] Address [address] [place] [address] Care Team Providers Care Writing Center Director Name Role Phone Scott Ashley WILLIAM Primary Care Provider [phone] Encounter Details Date Type Department Care Team (Late st Contact Info) Description 05/12/2019 Results Only [facility] [phone] Nadira Gregorio MD [address] [place] [phone] Social History Tobacco Use Types Packs/Day [...] ? 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 Accession #: ? [id number] ? : ? 1955 (Age: 63) ??F ? Collect Date: ? 05/12/2019 ? Location: ? [facility] ? Receive Date: ? 05/12/2019 ? Provider: NADIRA GREGORIO MD Copy to: WINTER HANKINS MAINTAINER OPERATOR ? Final Pathologic Diagnosis: COLON, CECUM, POLYP, [...] (ASCP) 05/12/2019 6:08 PM End of Report [facility] 05/12/2019 16:0 3 EDT 05/12/2019 16:03 EDT Nadira Gregorio MD PATHOLOGY ORDERABLES [facility] [address] [place] [address] documented in this encounter Visit Diagnoses Not on filedocumented in this encounter Care Teams Writing Center Director Relationship Specialty Start Date End Date Ashley Chavez ARNP [address] [place] [address] PCP - General 07/11/10 documented as of this encounter
--- OUTSIDE RECORDS SUMMARY | 2024-04-06 13:54 | XMS_ITS | Encounter Summary ---
[place] [address] Care Team Providers Care Fiscal Accountant Name Role Phone Magdalena Acosta MD Primary Care Provider [phone] Encounter Details Date Type Department Care Team [...] 4:15 PM EDT Office Visit Dermatology at [place] [address] [facility] [place] [address] Marek Bonilla MD [address], TODD A DERMATOLOGY [place], [place] [id number] documented as of this encounter Visit Diagnoses Not on filedocumented in this encounter Care Teams Fiscal Accountant Relationship Specialty Start Date End Date Magdalena Acosta MD [address] [place] [address] PCP - General Family Medicine 02/05/23 documented as of this encounter
--- OUTSIDE RECORDS SUMMARY | 2024-04-06 13:54 | XMS_ITS | Encounter Summary ---
Author Organization [facility] Address [address] [place] [address] Care Team Providers Care Map Plotter Name Role Phone Ashley Chavez Primary Care Provider [phone] Encounter Details Date Type Department Care Team (Late st Contact Info) Description 03/21/[address] [facility] Pathology & Laboratory Medicine - [address] [address] Outr Resulting Lab, Provider Social History Tobacco [...] 32 - 197 mg/dL 03/22/2024 10:25 EDT [facility] Blood VENOUS BLOOD / Unknown 03/21/2024 13:00 EDT 03/21/2024 21:50 EDT Provider Outr Resulting Lab CHEMISTRY & BLOOD GAS ORDERABLES [facility] [address] [place] [address] documented in this encounter Visit Diagnoses Not on filedocumented in this encounter Care Teams Map Plotter Relationship Specialty Start Date End Date Ashley Chavez ARNP [address] [place] [address] PCP - General 07/11/10 documented as of this encounter
--- OUTSIDE RECORDS SUMMARY | 2024-04-06 13:54 | XMS_ITS | Referral Summary ---
Author Organization [facility] Address [address] [place] [address] Care Team Providers Care Computing Machine Operator Name Role Phone Ashley Chavez Primary Care Provider [phone] Encounters Date Type Department Care Team Description 03/22/2024 Lab Requisition [facility] Pathology & Laboratory [address] [address] Consuelo Guerrero, DO Diaphragmatic hernia without obstruction or gangrene; Anemia, unspecified 03/21/2024 Lab Requisition [facility] Pathology & Laboratory [address] [address] Consuelo Guerrero DO Encounter for other general examination 03/21/2024 Lab Requisition [facility] Pathology & Laboratory [address] [address] Outr Resulting Lab, Provider from Last 3 [...] 13:00 EDT) LORY Negative 03/21/2024 22:31 EDT [facility] Blood VENOUS BLOOD / Unknown 03/21/2024 13:00 EDT 03/21/2024 21:51 EDT Consuelo Guerrero DO BLOOD BANK TESTS Performing Organization Address [facility] Co de Phone Number [facility]ANK [address] [place] [address] * HAPTOGLOBIN (03/21/2024 13:00 EDT) Haptoglobin 183 32 - 197 mg/dL 03/22/2024 10:25 EDT [facility] Blood VENOUS BLOOD / Unknown 03/21/2024 13:00 EDT 03/21/2024 21:50 EDT Provider Outr Resulting Lab CHEMISTRY & BLOOD GAS ORDERABLES Performing Organization Address [facility] Co de Phone Number [facility] [address] [place] [address] * SURGICAL PATHOLOGY (03/21/2024 11:35 EDT) Note to Patient The following pathology results have been interpreted by your pathologist and may be available to you before your health provider has had the opportunity to review them. Please allow time for your provider to receive these results and explore management options, if applicable. 03/24/2024 10:36 EDT [facility] Final Diagnosis A. [...] Luis Torres 03/22/2024 9:36 03/24/2024 10:36 EDT [facility] Resident/Estuardo w: Luis Felipe Bragg DO 03/24/2024 10:36 EDT [facility] Performing Lab [facility] 10:36 EDT [facility] Scanned Images 03/24/2024 10:36 EDT [facility] Tissue POLYP OF [...] 8:19 EDT Consuelo Guerrero DO PATHOLOGY ORDERABLES [facility] [address] [place] [address] from Last 3 Months Care Teams Computing Machine Operator Relationship Specialty Start Date End Date Ashley Chaevz ARNP [address] [place] [address] PCP - General 07/11/10
--- OUTSIDE RECORDS SUMMARY | 2024-04-06 13:54 | XMS_ITS | Encounter Summary ---
Author Organization [facility] [place] [address] Care Team Providers Care Stage Driver Name Role Phone Magdalena Acosta MD Primary Care Provider [phone] Reason for Referral * Diagnostic Test (Routine) - New Request Specialty Diagnoses / Procedures Referred By Contac t Referred To Contact Cardiology Diagnoses S/P TAVR (transcatheter aortic valve replacement) Procedures Echocardiogram Transthoracic Antelmo Sharma MD [facility] [place] [address] [facility] [place] [address] Referral ID Status Reason Start Date Expiration Date Visits Requested Visits Authorized [id number] New Request Specialty Service Requested 12/16/2023 12/15/2024 1 1 Encounter Details Date Type Department Care Team (Late st Contact Info) Description 12/16/2023 Orders Only Cardiology at [address] [address] Antelmo Sharma MD [facility] [place] [address] S/P TAVR (transcatheter aortic valve [...] 4:15 PM EDT Office Visit Dermatology at [place] [address] [facility] [place] [address] Marek Bonilla MD [address] [place] [address] Scheduled Orders Name Type Priority Associated Diagnoses [...] replacement) documented in this encounter Care Teams Stage Driver Relationship Specialty Start Date End Date Magdalena Acosta MD [address] [place] [address] PCP - General Family Medicine 02/05/23 documented as of this encounter
--- OUTSIDE RECORDS SUMMARY | 2024-04-06 13:54 | XMS_ITS | Encounter Summary ---
Author Organization [facility] Address [address] [place] [address] Care Team Providers Care Au Pair Name Role Phone Ashley Chavez Primary Care Provider [phone] Encounter Details Date Type Department Care Team (Late st Contact Info) Description 10/30/2022 Lab Requisition [facility] Pathology & Laboratory Medicine - [address] [address] Outr Resulting Lab, Provider Social History Tobacco [...] Stranded) <12.3 <30.0 IU/mL 11/03/2022 13:08 EDT [facility] Comment: ? Negative: ??<30.0 IU/mL ? Borderline Positive: ??30.0 - 75.0 IU/mL ? Positive: ??>75.0 IU/mL Results were obtained with the [employer] QUANT[employer] Lite dsDNA SC DOMO assay on the nuvoTV DSX. Blood VENOUS BLOOD / Unknown 10/29/2022 14:00 EDT 10/30/2022 19:27 EDT Provider Outr Resulting Lab IMMUNOLOGY A ND SEROLOGY ORDERABLES Performing Organization Address [facility] de Phone Number [facility] [address] [place] [address] * SM (MORENO) ANTIBODY (10/29/2022 14:00 EDT) [facility] SM (Moreno) Antibody 18.5 <20.0 Units 11/03/2022 14:26 EDT [facility] Comment: ? Negative: [...] ND SEROLOGY ORDERABLES Performing Organization Address [facility] de Phone Number [facility] [address] [place] [address] documented in this encounter Visit Diagnoses Not on filedocumented in this encounter Care Teams Au Pair Relationship Specialty Start Date End Date Ashley Chavez ARNP [address] [place] [address] PCP - General 07/11/10 documented as of this encounter
--- OUTSIDE RECORDS SUMMARY | 2024-04-06 13:54 | XMS_ITS | Encounter Summary ---
[place] [address] Care Team Providers Care Door Frame Builder Name Role Phone Magdalena Acosta MD Primary Care Provider [phone] Encounter Details Date Type Department Care Team [...] EDT Office Visit Dermatology at [place] [address] [facility] [place] [address] Marek Bonilla MD [address], TODD A DERMATOLOGY [place], [place] [address] documented as of this encounter Visit Diagnoses Not on filedocumented in this encounter Care Teams Door Frame Builder Relationship Specialty Start Date End Date Magdalena Acosta MD [address] [place] [address] PCP - General Family Medicine 02/05/23 documented as of this encounter
--- OUTSIDE RECORDS SUMMARY | 2024-04-06 13:54 | XMS_ITS | Encounter Summary ---
Author Organization [place] [address] Care Team Providers Care Shell Trim Tool Setter Name Role Phone Magdalena Acosta MD Primary Care Provider [phone] Reason for Visit * Reason Comments Coronary Artery Disease Hypertension Aortic Stenosis Encounter Details Date Type Department Care Team (Latest Contact Info) Description 07/20/2023 4:40 PM EST TH Visit (TeleHealth) Cardiology at [address] [address] Jay Maza PA [facility] [place] [address] HFrEF (heart failure with reduced ejection fraction); [...] lieu of an in person office visit. Sprayer Hand: Antelmo Sharma MD ([facility] Cards) Maria Luz Mejia MD ([facility] cards) Problem List: : prior [...] fraction I35.0 Mild coronary artery disease by [facility] 11/09/2022 I25.10 Heart failure with reduced ejection [...] notable for coronary artery protection given low fegwe-gy-jjnyzdrh distance. There was no obstruction post Valve deployment, but the stent could not be removed safely, so it was deployed. 4.0 mm x 30mm in left main. She was loaded on brilinta aka ticagrelor. Immediately post valve deployment, chest compressions to circulate central epinephrine which was administered given her hypotension, low LVEF, and low cardiac reserve. Next, the patient was transferred to [facility] for pressor and inotropic support. Pressors weaned overnight. Cardiac indices by thermodilution remained greater than 3 with continued Milrinone 0.125 mcg/kg/min. EKG the next day with NSR with stable MT/QRS intervals. Hemoglobin 7.8 today from 8.5, likely [...] arms and wrists. Successful right transfemoral TAVR Lwdvw-lg-Wgpsm with a 23 mm Lai 3 THV. [...] leads Confirmed by MD Harshil, Haris Bell ([id number]) on 05/10/2023 8:11:46 AM Cardiac Cath 11/09/2022 [...] in chart review and direct patient contact. 3416WWM6 0-5min 7788IBS7 6-10min 1034DND3 11-15min 4892FAP1 16-20min x 4019PQU9 21-30min 7278VUD3 31-40min 9852YYJ6 40+ min Jay Maza PA-C Interventional Cardiology [facility] Pager [phone] documented in this encounter Plan of Treatment Upcoming Encounters Date Type Department Care Team (Late st Contact Info) Description 03/01/2025 4:15 PM EDT Office Visit Dermatology at [place] [address] [place] [address] Marek Bonilla MD [address], [place] [address] documented as of this encounter Visit Diagnoses Diagnosis HFrEF (heart failure with reduced ejection fraction) Hypertension, unspecified type Aortic valve stenosis, etiology of cardiac valve disease unspecified documented in this encounter Care Teams Shell Trim Tool Setter Relationship Specialty Start Date End Date Magdalena Acosta MD [address] [place] [address] PCP - General Family Medicine 02/05/23 documented as of this encounter
--- OUTSIDE RECORDS SUMMARY | 2024-04-06 13:54 | XMS_ITS | Encounter Summary ---
Author Organization [facility] [place] [address] Care Team Providers Care Stitch Separator Name Role Phone Magdalena Acosta MD Primary Care Provider [phone] Reason for Visit * Reason Comments Aortic Stenosis Coronary Artery Disease Hypertension Encounter Details Date Type Department Care Team (Latest Contact Info) Description 11/16/2023 11:40 AM EDT TH Visit (TeleHealth) Cardiology at [address] [address] Jay Maza PA [facility] [address] Aortic valve stenosis, etiology of cardiac valve disease unspecified; Coronary artery disease, unspecified vessel or lesion type, unspecified whether angina present, unspecified whether sun'aq or transplanted heart Social History Tobacco Use Types Packs/Day Years Used Date Smoking Tobacco: Never Smokeless Tobacco: Never Alcohol Use Standard Drinks/Week Comments No 0 (1 standard drink = 0.6 oz pur e alcohol) none [facility] Inpatient Questions Answer Date Recorded [...] from the original note were not included. [facility] Interventional Cardiology CARDIOLOGY TELE VISIT NOTE 11/16/23 Patient: Purnima Thacker Prior to the initiation of our discussion, the risks and benefits of tele health visits were discussed, and the patient consented verbally to this being a virtual telehealth visit in lieu of an in person office visit. CARDIOLOGISTS: Antelmo Sharma MD ([facility] Cards) Maria Luz Mejia MD ([facility] Cards - [facility]) Problem [...] Mild coronary artery disease by [facility] 11/09/2022 I25.10 Heart failure with reduced ejection [...] notable for coronary artery protection given low slgfx-jz-pnrjrywa distance. There was no obstruction post Valve [...] leads Confirmed by MD Harshil, Haris Bell ([id number]) on 05/10/2023 8:11:46 AM Cardiac Cath 11/09/2022 [...] in one year. EKATERINA Thompson Time spent: 9022MBQ7 0-5min 9158NEN6 6-10min 5940OZU1 11-15min x 3758CTA5 16-20min 2085JXK9 21-30min 4166JLY9 31-40min 9355POA5 40+ min Jay Maza PA-C Interventional Cardiology [facility] Heart [facility] V[facility] Center [facility] Pager [phone] documented in this encounter Plan of Treatment Upcoming Encounters Date Type Department Care Team (Late st Contact Info) Description 03/01/2025 4:15 PM EDT Office Visit Dermatology at [address] [place] [address] Marek Bonilla MD [address] [facility], [place] [address] documented as of this encounter Visit Diagnoses Diagnosis Aortic valve stenosis, etiology of cardiac valve disease unspecified Coronary artery disease, unspecified vessel or lesion type, unspecified whether angina present, unspecified whether sun'aq or transplanted heart documented in this encounter Care Teams Stitch Separator Relationship Specialty Start Date End Date Magdalena Acosta MD [address] [place] [address] PCP - General Family Medicine 02/05/23 documented as of this encounter
--- OUTSIDE RECORDS SUMMARY | 2024-04-06 13:54 | XMS_ITS | Encounter Summary ---
Author Organization [facility] Address [address] [place] [address] Care Team Providers Care Hat Finisher Name Role Phone Ashley Chavez Primary Care Provider [phone] Encounter Details Date Type Department Care Team (Late st Contact Info) Description 04/29/2022 Lab Requisition [facility] Pathology & Laboratory Medicine - [address] [address] Outr Resulting Lab, Provider Social History Tobacco [...] Antibody 1.6 <20.0 Units 04/30/2022 12:23 EDT [facility] Comment: ? Negative: <20.0 [...] SEROLOGY ORDERABLES Performing Organization Address [facility] de Phone Number [facility] [address] [place] [address] * SSA ANTIBODIES BY DOMO (04/29/2022 7:51 EDT) SSA Antibody 1.5 <20.0 Units 04/30/2022 12:22 EDT [facility] Comment: ? Negative: <20.0 [...] ND SEROLOGY ORDERABLES Performing Organization Address [facility] de Phone Number [facility] [address] [place] [address] documented in this encounter Visit Diagnoses Not on filedocumented in this encounter Care Teams Hat Finisher Relationship Specialty Start Date End Date Ashley Chavez ARNP [address] [place] [address] PCP - General 07/11/10 documented as of this encounter
--- OUTSIDE RECORDS SUMMARY | 2024-04-06 13:54 | XMS_ITS | Encounter Summary ---
[place] [address] Care Team Providers Care Special Diet Cook Name Role Phone Magdalena Acosta MD Primary Care Provider [phone] Reason for Visit * Reason Comments Annual Exam Encounter Details Date Type Department Care Team (Late st Contact Info) Description 02/22/2024 4:15 PM EDT Office Visit Dermatology at [address] [phone] Marek Bonilla MD [address] [facility] A DERMATOLOGY [place], [place] [address] Seborrheic keratosis; Rosacea; Nevus Social History Tobacco [...] cutaneous and ocular 3. Previously told by dietetic tech that she had corneal tears from her [...] EDT Office Visit Dermatology at [place] [address] [place] [address] Marek Bonilla MD [address] [facility], [place] [address] documented as of this encounter Visit Diagnoses Diagnosis Seborrheic keratosis Other seborrheic keratosis Rosacea Nevus Benign neoplasm of skin, site unspecified documented in this encounter Care Teams Special Diet Cook Relationship Specialty Start Date End Date Magdalena Acosta MD [address] [place] [address] PCP - General Family Medicine 02/05/23 documented as of this encounter
--- OUTSIDE RECORDS SUMMARY | 2024-04-06 13:54 | XMS_ITS | Encounter Summary ---
Author Organization [facility] Address [facility] [place] [address] Care Team Providers Care Jewelry Polisher Name Role Phone Magdalena Acosta MD Primary Care Provider [phone] Encounter Details Date Type Department Care Team (Late st Contact Info) Description 07/29/2023 11:00 AM EST [place] [address] Magdalena Peralta MD [facility] [place] [address] Mixed connective tissue disease Social History Tobacco [...] documented in this encounter Progress Notes * Magdaelna Peralta MD - 07/29/2023 11:00 AM EST [...] 1:5120 speckled; VIC negative; Myositis panel with MAINTENANCE MANAGER ab 149.1 (positive); Anti U1RNP IgG 119; [...] Viramontes. Magdalena Peralta MD Rheumatology Fellow Pager: [phone] * Kia Viramontes DO - 07/29/2023 11:00 AM EST ATTENDING ADDENDUM The patient's history was reviewed, and I interviewed and examined the patient with Dr. Peralta I agree with her summary, findings, and plan. documented in this encounter Plan of Treatment Upcoming Encounters Date Type Department Care Team (Late st Contact Info) Description 03/01/2025 4:15 PM EDT Office Visit Dermatology at [place] [address] [facility] [place] [address] Marek Bonilla MD [address] [facility], [place] [address] documented as of this encounter Results * [...] PFT FEV1/FVC Pre-BD Z-Score 0 COMPAS PFT NOL04-09 Actual Pre-BD 2.41 % COMPAS PFT DQW96-95 Predicted 1.8 % COMPAS PFT FQC80-56 Pre-BD % of Predicted 134 % COMPAS PFT JCK59-49 Pre-BD Z-Score 0.81 COMPAS PFT DLCO Hb [...] tissue documented in this encounter Care Teams Jewelry Polisher Relationship Specialty Start Date End Date Magdalena Acosta MD [address] [place] [address] PCP - General Family Medicine 02/05/23 documented as of this encounter
--- OUTSIDE RECORDS SUMMARY | 2024-04-06 13:54 | XMS_ITS | Encounter Summary ---
[place] [address] Care Team Providers Care Skiff Operator Name Role Phone Magdalena Acosta MD Primary Care Provider [phone] Encounter Details Date Type Department Care Team [...] EDT Office Visit Dermatology at [place] [address] [facility] [place] [address] Marek Bonilla MD [address], TODD A DERMATOLOGY [place], [place] [address] documented as of this encounter Visit Diagnoses Not on filedocumented in this encounter Care Teams Skiff Operator Relationship Specialty Start Date End Date Magdalena Acosta MD [address] [place] [address] PCP - General Family Medicine 02/05/23 documented as of this encounter
--- OUTSIDE RECORDS SUMMARY | 2024-04-06 13:54 | XMS_ITS | Encounter Summary ---
Author Organization [facility] Address [address] [place] [address] Care Team Providers Care Public School Teacher Name Role Phone Ashley Chavez Primary Care Provider [phone] Encounter Details Date Type Department Care Team (Late st Contact Info) Description 03/22/2024 Lab Requisition [facility] Pathology & Laboratory Medicine - [address] [address] Consuelo Guerrero, DO [address] [facility] [address] [address] [place], [place] [address] Diaphragmatic hernia without obstruction or gangrene; Anemia, [...] explore management options, if applicable. 03/24/2024 10:36 [facility] Final Diagnosis A. [...] - Deeper sections x3 examined. 03/24/2024 10:36 [facility] Attestation There was significant resident/fellow involvement in the diagnostic evaluation of this case. By the signature below, the attending physician certifies that they have personally conducted a gross and/or microscopic examination of the described specimens and rendered or confirmed the above diagnosis. 03/24/2024 10:36 [facility] at 1036 Clinical History Anemia, hiatal hernia, 38 cm aguayo diverticulosis 03/24/2024 10:36 [facility] Gross Description A. Received [...] Luis Torres 03/22/2024 9:36 03/24/2024 10:36 EDT [facility] Resident/Estuardo w: Luis Felipe Bragg DO 03/24/2024 10:36 T [facility] Performing Lab [facility] 10:36 T [facility] Scanned Images 03/24/2024 10:36 T [facility] Tissue POLYP OF COLON / [...] 8:19 EDT Consuelo Guerrero DO PATHOLOGY ORDERABLES [facility] [address] [place] [address] documented in this encounter Visit Diagnoses Diagnosis Diaphragmatic hernia without obstruction or gangrene Diaphragmatic hernia without mention of obstruction or gangrene Anemia, unspecified documented in this encounter Care Teams Public School Teacher Relationship Specialty Start Date End Date Ahsley Chavez ARNP [address] [place] [address] PCP - General 07/11/10 documented as of this encounter
--- OUTSIDE RECORDS SUMMARY | 2024-04-06 13:54 | XMS_ITS | Encounter Summary ---
Author Organization [facility] Address [address] [place] [address] Care Team Providers Care Caramel Coloring Operator Name Role Phone Scott, Ashley WILLIAM Primary Care Provider [phone] Encounter Details Date Type Department Care Team (Late st Contact Info) Description 12/23/2016 Results Only [facility] [phone] Deborah Quiroga, WELFARE ELIGIBILITY INTERVIEWER [address] [place] [address] [phone] Social History Tobacco Use Types Packs/Day Years [...] ? 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 Accession #: ? [id number] ? : ? 1955 (Age: 61) ??F ?Collect Date: ? 12/23/2016 ? Location: ? [facility] ? Receive Date: ? 12/25/2016 ? Provider: DEBORAH QUIROGA ROUTE RIDER SUPERVISOR Copy to: ? Final Report SPECIMEN ADEQUACY ? Satisfactory for Evaluation - transformation zone component present GENERAL CATEGORIZATION ? Negative for Intraepithelial Lesion or Malignancy ?? Last Menstrual Period: years Specimen/Source: ??Pap Test, Cervix, ThinPrep Imaging System with manual evaluation Document reviewed and electronically signed by: ? Monica Cason [facility](AS[facility]) ? Report ??Date: 01/06/2017 09:11 HPV with Pap Test ? Date Ordered: ? 01/06/2017 ? Status: ?? Signed Out ?Date Complete: ? 01/07/2017 ? By: ??System Interface ? Date Reported: ? 01/07/2017 ? Interpretation RESULT: Negative for HPV. No E6 or E7 mRNA is detected from HPV types 16,18,31,33,35, 39,45,51,52,56,58, 59,66, and 68 by manager gas mediated amplification. Comments Document reviewed and electronically signed by: ? System Interface ? Report date: 01/07/2017 By the signature above, the attending physician certifies that he/she has personally conducted a gross and/or microscopic examination of the described specimens and rendered or confirmed the above diagnosis. End of Report [facility] 12/23/2016 12/25/2016 Deborah Quiroga WELFARE ELIGIBILITY INTERVIEWER PATHOLOGY ORDERABLES [facility] [address] [place] [address] documented in this encounter Visit Diagnoses Not on filedocumented in this encounter Care Teams Caramel Coloring Operator Relationship Specialty Start Date End Date Ashley Chavez ARNP [address] [place] [address] PCP - General 07/11/10 documented as of this encounter
--- OUTSIDE RECORDS SUMMARY | 2024-04-06 13:54 | XMS_ITS | Encounter Summary ---
Author Organization [facility] Address [address] [place] [address] Care Team Providers Care Costumed Character Name Role Phone Ashley Chavez Primary Care Provider [phone] Encounter Details Date Type Department Care Team (Late st Contact Info) Description 06/23/2016 Results Only [facility] [phone] Matthew Acevedo, DO [address] [facility] TODD [place] [address] [place] [address] Social History Tobacco Use Types Packs/Day [...] ? 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 Accession #: ? [id number] : ? 1955 (Age: 60) ??F ?Collect [...] ??400 ?? KARYOTYPE: 46,XX[25] End of Report [facility] 06/23/2016 06/24/2016 Matthew Acevedo DO PATHOLOGY ORDER JODIE [facility] [address] [place] [address] * FLOW CYTOMETRY (06/23/2016 0:00 EST) Pathology Report: FLOW CYTOMETRY REPORT Reports generated via electronic interface contain original data; however they are lacking the format of the original report. Caution should be taken when reading/interpreting unformatted reports. Name: ? 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 Accession #: ? [id number] : ? 1955 (Age: 60) ??F ?Collect Date: ? 06/23/2016 00:00 Location: ? [facility] ? Receive Date: ? 06/24/2016 08:00 Provider: ?MATTHEW ACEVEDO DO Copy to: ?WINTER HANKINS CADD MANAGER MARIO ALBERTO RAMOS MD ? FINAL IMMUNOPHENOTYPIC INTERPRETATION: ? Bone marrow, flow cytometric analysis: -No immunophenotypic evidence of a clonal cell population. ??See comment. ? COMMENT: The results of flow cytometry show no immunophenotypic evidence of involvement by a clonal lymphoproliferative or myeloproliferative disorder. ??Correlation of these findings with morphologic and clinical data is essential. ??Please refer to pathology report number [id number] for morphologic details. ? Document reviewed and [...] the Department of Pathology and Laboratory Medicine, [place], [place] ??It has not been cleared or [...] clinical laboratory testing. End of Report ?? [facility] 06/23/2016 06/24/2016 8:0 0 EST Matthew Acevedo DO PATHOLOGY ORDER JODIE [facility] [address] [place] [address] * BONE MARROW/HEMPATH CONSULT (06/23/2016 0:00 EST) Pathology Report: BONE MARROW REPORT Reports generated via electronic interface contain original data; however they are lacking the format of the original report. Caution should be taken when reading/interpreting unformatted reports. Name: ? 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 Accession #: ? [id number] : ? 1955 (Age: 60) ??F ?Collect Date: ? 06/23/2016 Location: ? [facility] ? Receive Date: ? 06/24/2016 Provider: ? MATTHEW ACEVEDO DO Copy to: ?WINTER HANKINS CADD MANAGER MARIO ALBERTO RAMOS MD ? DIAGNOSIS: Peripheral [...] #1: Aggregate biopsy length: 8 mm with foil spooler trabeculae of lamellar bone, cellular bone marrow, [...] SEE ABOVE DISCUSSION Lambda (polyclonal, Dako) ??(B1): Deering (polyclonal, Dako) ??(B1): Biopsy (decalcified) #2: Aggregate biopsy length: 8 mm with foil spooler trabeculae of lamellar bone, cellular bone marrow, [...] (M115, Leica) ??(B2): Lambda (polyclonal, Dako) ??(B2): Deering (polyclonal, Dako) ??(B2): NOTE: ??One or more [...] ? 1% Blasts ?1% Special Studies Cytogenetics ([id number]): Pending. Flow Cytometry ([id number]): No immunophenotypic evidence of a clonal cell population. ? End of Report [facility] 06/23/2016 06/24/2016 Matthew Acevedo DO PATHOLOGY ORDER JODIE [facility] [address] [place] [address] documented in this encounter Visit Diagnoses Not on filedocumented in this encounter Care Teams Costumed Character Relationship Specialty Start Date End Date Ashley Chavez ARNP [address] [place] [address] PCP - General 07/11/10 documented as of this encounter
--- OUTSIDE RECORDS SUMMARY | 2024-04-06 13:54 | XMS_ITS | Encounter Summary ---
Author Organization [facility] Address [address] [place] [address] Care Team Providers Care Telecommunications Linesworker Name Role Phone Ashley Chavez Primary Care Provider [phone] Encounter Details Date Type Department Care Team (Latest Contact Info) Description 05/12/2019 13:18 EDT - 05/12/2019 23:59 EDT Hospital Encounter [address] [address] Unknown, Provider, Discharge Disposition: Home or Self Care Social History Tobacco Use Types Packs/Day Years Used Date Smoking Tobacco: Never Assessed Sex and Gender Information Value Date Recorded Sex Assigned at Not on file Gender Identity Not on file Sexual Orientation Not on file documented as of this encounter Discharge Disposition Disposition Code Departure Means Destination Home or Self Usp documented in this encounter Plan of Treatment Not on file documented as of this encounter Visit Diagnoses Not on filedocumented in this encounter Care Teams Telecommunications Linesworker Relationship Specialty Start Date End Date Ashley Chavez ARNP [address] [place] [address] PCP - General 07/11/10 documented as of this encounter
--- OUTSIDE RECORDS SUMMARY | 2024-04-06 13:54 | XMS_ITS | Encounter Summary ---
Author Organization [facility] Address [address] [place] [address] Care Team Providers Care Short Story Writer Name Role Phone Ashley Chavez Primary Care Provider [phone] Encounter Details Date Type Department Care Team (Late st Contact Info) Description 01/07/2023 Lab Requisition [facility] Pathology & Laboratory Medicine - [address] [address] Outr Resulting Lab, Provider Social History Tobacco [...] 56.2 55.8 - 66.1 % 01/08/2023 11:28 [facility] Albumin g/dL 3.9 3.6 - 5.2 g/dL 01/08/2023 11:28 [facility] Alpha-1 % 5.1(H) 2.9 - 4.9 % 01/08/2023 11:28 [facility] Alpha-1 g/dL 0.40 0.15 - 0.40 g/dL 01/08/2023 11:28 [facility] Alpha-2 % 7.0(L) 7.1 - 11.8 % 01/08/2023 11:28 [facility] Alpha-2 g/dL 0.50 0.50 - 1.00 g/dL 01/08/2023 11:28 [facility] Beta % 12.7 8.4 - 13.1 % 01/08/2023 11:28 [facility] Beta g/dL 0.90 0.60 - 1.20 g/dL 01/08/2023 11:28 [facility] Gamma % 19.0(H) 11.1 - 18.8 % 01/08/2023 11:28 [facility] Gamma g/dL 1.30 0.60 - 1.60 g/dL 01/08/2023 11:28 [facility] SPEP Comment No apparent monoclonal protein seen on serum electrophoresis 01/08/2023 11:28 [facility] Comment:See scanned/suppleme ntary report. Total Protein 6.9 6.3 - 8.2 g/dL 01/08/2023 11:28 [facility] Blood VENOUS BLOOD / Unknown 01/06/2023 14:40 EDT 01/07/2023 17:37 EDT Provider Outr Resulting Lab CHEMISTRY & BLOOD GAS ORDERABLES Performing Organization Address City/State/[facility] Co de Phone Number [facility] [address] [place] [address] * PROTEIN, TOTAL (01/06/2023 14:40 EDT) Blood VENOUS BLOOD / Unknown 01/06/2023 14:40 EDT 01/07/2023 17:37 EDT Provider Outr Resulting Lab CHEMISTRY & BLOOD GAS ORDERABLES Performing Organization Address [facility] Co de Phone Number [facility] [address] [place] [address] * (ABNORMAL) EXTRACTABLE NUCLEAR ANTIGEN PANEL (01/06/2023 14:40 EDT) SSA Antibody 1.3 <20.0 Units 01/08/2023 15:42 EDT [facility] Comment: ? Negative: <20.0 [...] <20.0 Units 01/08/2023 15:42 EDT [facility] Comment: ? Negative: <20.0 [...] <20.0 Units 01/08/2023 15:42 EDT [facility] Comment: ? Negative: <20.0 Units ? Weak Positive: 20.0 - 39.9 Units ? Moderate Positive: 40.0 - 80.0 Units ? Strong Positive: >80.0 Units Results were obtained with the EDUSVA QUANTA Lite Sm DOMO. ??Sm values obtained with different manufacturers' assay methods may not be used interchangeably. ??The magnitude of the reported IgG levels cannot be correlated to an endpoint titer. ELECTRIC FORK OPERATOR Antibody 149.1(H) <20.0 Units 01/08/2023 15:42 EDT [facility] Comment: ? Negative: <20.0 Units ? Weak Positive: 20.0 - 39.9 Units ? Moderate Positive: 40.0 - 80.0 Units ? Strong Positive: >80.0 Units Results were obtained with the ID.meva Quanta Lite ELECTRIC FORK OPERATOR DOMO. ELECTRIC FORK OPERATOR values obtained with different ballistics teacher's assay methods may not be used interchangeaby. ??The magnitude of the reported IgG levels cannot be be correlated to an endpoint titer. A positive result in the Quanta Lite ELECTRIC FORK OPERATOR DOMO indicates the presence of antibodies reactive with the ELECTRIC FORK OPERATOR/Sm complex but cannot distinguish between anti-Sm and anti-ELECTRIC FORK OPERATOR activity. Blood VENOUS BLOOD / Unknown 01/06/2023 14:40 EDT 01/07/2023 17:37 EDT Provider Outr Resulting Lab IMMUNOLOGY A ND SEROLOGY ORDERABLES [facility] [address] [place] [address] * (ABNORMAL) ANTI NUCLEAR AB (FRANCISCO), IFA (01/06/2023 14:40 EDT) FRANCISCO Interpretation Positive(A) Negative 01/08/2023 15:22 EDT [facility] Comment: Result is equal [...] 1:5120 Speckled 01/08/2023 15:22 EDT [facility] Blood VENOUS BLOOD / Unknown 01/06/2023 14:40 EDT 01/07/2023 17:37 EDT Narrative [facility] - 01/08/2023 15:22 EDT Results were obtained with the INOVA NOVA Lite HEp-2 FRANCISCO Kit by indirect immunofluorescence. Provider Outr Resulting Lab IMMUNOLOGY A ND SEROLOGY ORDERABLES Performing Organization Address City/State/[facility] Co de Phone Number [facility] [address] [place] [address] documented in this encounter Visit Diagnoses Not on filedocumented in this encounter Care Teams Short Story Writer Relationship Specialty Start Date End Date Ashley Chavez ARNP [address] [place] [address] PCP - General 07/11/10 documented as of this encounter
--- OUTSIDE RECORDS SUMMARY | 2024-04-06 13:54 | XMS_ITS | Encounter Summary ---
Author Organization [facility] Address [address] [place] [address] Care Team Providers Care Insurance Checker Name Role Phone Unavailable Primary Care Provider Unavailabl e Encounter Details Date Type Department Care Team (Late st Contact Info) Description 03/24/2007 11:06 EDT - 03/24/2007 11:59 EDT Hospital Encounter [facility] - Other [address] [place] [address] Ashley Chavez ARNP [address] [place] [id number] Discharge Disposition: Home or Self Care Social [...]
--- OUTSIDE RECORDS SUMMARY | 2024-04-06 13:54 | XMS_ITS | Encounter Summary ---
Author Organization [facility] Address [address] [place] [address] Care Team Providers Care Scrap Preparation Supervisor Name Role Phone Unavailable Primary Care Provider Unavailabl e Encounter Details Date Type Department Care Team (Late st Contact Info) Description 06/29/[address] [facility] [address] [place] [address] Sánchez Acevedo MD [address] [place] [id number] Social History Tobacco Use Types Packs/Day Years [...] ? 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 Accession #: ? [id number] ? : ? 1955 (Age: 51) ??F [...] covered by a smooth white serosa. ??Three pest control service representative sections of the gallbladder are submitted in one cassette. ??(Sriram Elias/[facility] End of Report [facility] 06/29/2007 06/29/2007 21: 23 EST Sánchez Acevedo MD PATHOLOGY ORDERABLE [facility] [address] [place] [address] documented in this encounter Visit Diagnoses Not on filedocumented in this encounter
--- OUTSIDE RECORDS SUMMARY | 2024-04-06 13:54 | XMS_ITS | Encounter Summary ---
[place] [address] Care Team Providers Care Materials Handling Equipment Operator Name Role Phone Magdalena Acosta MD Primary Care Provider [phone] Encounter Details Date Type Department Care Team [...] 4:15 PM EDT Office Visit [facility] at [place] [address] [place] [address] Marek Bonilla MD [address], [place] A [place]ERMATOLOGY [place], [place] [address] documented as of this encounter Visit Diagnoses Not on filedocumented in this encounter Care Teams Materials Handling Equipment Operator Relationship Specialty Start Date End Date Magdalena Acosta MD [address] [place] [address] PCP - General Family Medicine 02/05/23 documented as of this encounter
--- OUTSIDE RECORDS SUMMARY | 2024-04-06 13:54 | XMS_ITS | Encounter Summary ---
Author Organization [facility] Address [address] [place] [address] Care Team Providers Care Seed Cleaner Operator Name Role Phone Scott Ashley WILLIAM Primary Care Provider Encounter Details Date Type Department Care Team (Late st Contact Info) Description 11/10/2013 Results Only [facility] [phone] Jeni Laird, RETAIL SERVICES PROFESSIONAL [address] [place], [place] [id number] Social History Tobacco Use Types Packs/Day Years [...] ? 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 Accession #: ? [id number] : ? 1955 (Age: 58) ??F ?Collect Date: ? 11/10/2013 Location: ? [facility] ? Receive Date: ? 11/14/2013 Provider: ?JENI LAIRD RETAIL SERVICES PROFESSIONAL Copy to: ? Specimen/Source: ?Pap Test, Endocervix, [...] Report [facility] 11/10/2013 11/14/2013 Jeni Laird RETAIL SERVICES PROFESSIONAL PATHOLOGY ORDERAB LES Performing Organization Address City/State/[facility] Co de Phone Number [facility] [address] [place] [address] documented in this encounter Visit Diagnoses Not on filedocumented in this encounter Care Teams Seed Cleaner Operator Relationship Specialty Start Date End Date Ashley Chavez ARNP [address] [place] [address] PCP - General 07/11/10 documented as of this encounter
--- OUTSIDE RECORDS SUMMARY | 2024-04-06 13:54 | XMS_ITS | Encounter Summary ---
Author Organization [facility] Address [address] [place] [address] Care Team Providers Care Pattern Shop Supervisor Name Role Phone Ashley Chavez Primary Care Provider [phone] Encounter Details Date Type Department Care Team (Late st Contact Info) Description 12/17/2021 Lab Requisition [facility] Pathology & Laboratory Medicine - [address] [id number] Outr Resulting Lab, Provider Social History Tobacco [...] Lyme Ab Negative Negative 12/18/2021 10:37 EDT [facility] Blood VENOUS BLOOD / Unknown 12/17/2021 13:30 EDT 12/17/2021 21:32 EDT Provider Outr Resulting Lab IMMUNOLOGY A ND SEROLOGY ORDERABLES Performing Organization Address [facility] Co de Phone Number [facility] [address] [place] [address] * (ABNORMAL) ANTI NUCLEAR AB (FRANCISCO), IFA (12/17/2021 13:30 EDT) FRANCISCO Interpretation Positive(A) Negative 12/18/2021 16:06 EDT [facility] Comment: For titers greater [...] Pattern 1 1:1280 Speckled 12/18/2021 16:06 EDT [facility] Blood VENOUS BLOOD / Unknown 12/17/2021 13:30 EDT 12/17/2021 21:32 EDT Narrative [facility] - 12/18/2021 16:06 EDT Results were obtained with the INOVA NOVA Lite HEp-2 FRANCISCO Kit by indirect immunofluorescence. Provider Outr Resulting Lab IMMUNOLOGY A ND SEROLOGY ORDERABLES Performing Organization Address [facility] Co de Phone Number [facility] [address] [place] [address] documented in this encounter Visit Diagnoses Not on filedocumented in this encounter Care Teams Pattern Shop Supervisor Relationship Specialty Start Date End Date Ashley Chavez ARNP [address] [place] [address] PCP - General 07/11/10 documented as of this encounter
--- OUTSIDE RECORDS SUMMARY | 2024-04-06 13:54 | XMS_ITS | Clinical Summary ---
Author Organization [facility] Address [address] [place] [address] Care Team Providers Care Bleach Analyst Name Role Phone Ashley Chavez Primary Care Provider Encounters Date Type Department Care Team Description 03/22/2024 Lab Requisition [facility] Pathology & Laboratory [address] [address] Consuelo Guerrero, DO Diaphragmatic hernia without obstruction or gangrene; Anemia, unspecified 03/21/2024 Lab Requisition [facility] Pathology & Laboratory [address] [address] Consuelo Guerrero, DO Encounter for other general examination 03/21/2024 Lab Requisition [facility] Pathology & Laboratory [address] [address] Outr Resulting Lab, Provider from Last 3 [...] 2015 Fall Risk Screening 2020 COVID-19 Vaccine (2022- season) 2024 Procedures Procedure Name Priority Date/Time Associated Diagnosis Comments DIRECT ANTIGLOBULIN TEST Today 03/21/2024 13:00 EDT Encounter for other general examination HAPTOGLOBIN Routine 03/21/2024 13:00 EDT SURGICAL PATHOLOGY Today 03/21/2024 11 :35 EDT Diaphragmatic hernia without obstruction or gangrene Anemia, unspecified from Last 3 Months Results * DIRECT ANTIGLOBULIN TEST (03/21/2024 13:00 EDT) LORY Negative 03/21/2024 22:31 EDT [facility] Blood VENOUS BLOOD / Unknown 03/21/2024 13:00 EDT 03/21/2024 21:51 EDT Consuelo Guerrero DO BLOOD BANK TESTS Performing Organization Address [facility] Co de Phone Number [facility] [address] [place] [phone] * HAPTOGLOBIN (03/21/2024 13:00 EDT) Haptoglobin 183 32 - 197 mg/dL 03/22/2024 10:25 EDT [facility] Blood VENOUS BLOOD / Unknown 03/21/2024 13:00 EDT 03/21/2024 21:50 EDT Provider Outr Resulting Lab CHEMISTRY & BLOOD GAS ORDERABLES Performing Organization Address [facility]/ZIP Co de Phone Number [facility] [address] [place], [place] [id number] * SURGICAL PATHOLOGY (03/21/2024 11:35 EDT) Note to Patient The following pathology results have been interpreted by your pathologist and may be available to you before your health provider has had the opportunity to review them. Please allow time for your provider to receive these results and explore management options, if applicable. 03/24/2024 10:36 EDT [facility] Final Diagnosis A. JEJUNUM, [...] - Deeper sections x3 examined. 03/24/2024 10:36 [facility] Attestation There was significant resident/fellow involvement in the diagnostic evaluation of this case. By the signature below, the attending physician certifies that they have personally conducted a gross and/or microscopic examination of the described specimens and rendered or confirmed the above diagnosis. 03/24/2024 10:36 [facility] at 1036 Clinical History Anemia, hiatal hernia, 38 cm aguayo diverticulosis 03/24/2024 10:36 [facility] Gross Description A. Received [...] Luis Torres 03/22/2024 9:36 03/24/2024 10:36 EDT [facility] Resident/Estuardo w: Luis Felipe Bragg DO 03/24/2024 10:36 EDT [facility] Performing Lab [facility] 10:36 EDT [facility] Scanned Images 03/24/2024 10:36 EDT [facility] Tissue POLYP OF COLON [...] 8:19 EDT Consuelo Guerrero DO PATHOLOGY ORDERABLES [facility] [address] [place] [address] from Last 3 Months Care Teams Bleach Analyst Relationship Specialty Start Date End Date Ashley Chavez ARNP [address] [place] [address] PCP - General 07/11/10
--- OUTSIDE RECORDS SUMMARY | 2024-04-06 13:54 | XMS_ITS | Encounter Summary ---
Author Organization [facility] Address [address] [place] [address] Care Team Providers Care Weather Anchor Name Role Phone Unavailable Primary Care Provider Unavailabl e Encounter Details Date Type Department Care Team (Late st Contact Info) Description 07/08/2010 10:55 EST - 07/08/2010 10:56 EST Hospital Encounter [facility] - Other [address] [place] [address] Ashley Chavez, WILLIAM [address] [place] [address] Discharge Disposition: Home or Self Care Social [...]
--- OUTSIDE RECORDS SUMMARY | 2024-04-06 13:54 | XMS_ITS | Encounter Summary ---
Author Organization [facility] Address [address] [place] [address] Care Team Providers Care Motor Vehicle Lecturer Name Role Phone Unavailable Primary Care Provider Unavailabl e Encounter Details Date Type Department Care Team (Late st Contact Info) Description 03/24/2007 Results Only [facility] Non-Invasive Cardiology - [facility] [address] [place], [place] [address] Ashley Chavez ARNP [address] [place] [address] Social History Tobacco Use Types Packs/Day Years [...] ? 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 Accession #: ? [id number] : ? 1955 (Age: 51) ??F ?Collect Date: ? 03/24/2007 Location: ? [facility] ? Receive Date: ? 03/28/2007 Provider: ?ASHLEY THOMAS Copy to: ? Specimen/Source: ?ThinPrep Pap Test, Endocervix, processed on ProfStream ThinPrep Imaging System, with manual evaluation Last [...] Date: ??03/31/2007 10:08 End of Report PAUL ARELLNAO 03/24/2007 03/28/2007 Ashley THOMAS PATHOLOGY ORDERABLES PAUL ARELLANO [address] [place] [address] documented in this encounter Visit Diagnoses Not on filedocumented in this encounter
--- OUTSIDE RECORDS SUMMARY | 2024-04-06 13:54 | XMS_ITS | Encounter Summary ---
Author Organization [facility] Address [address] [place] [address] Care Team Providers Care Rotary Peel Oven Tender Name Role Phone ScottNicolei WILLIAM Primary Care Provider [phone] Encounter Details Date Type Department Care Team (Late st Contact Info) Description 03/21/2024 Lab Requisition [facility] Pathology & Laboratory Medicine - [address] [address] Consuelo Guerrero, DO [address] [place], [place] [address] Encounter for other general examination Social History [...] 13:00 EDT) LORY Negative 03/21/2024 22:31 EDT [facility] Blood VENOUS BLOOD / Unknown 03/21/2024 13:00 EDT 03/21/2024 21:51 EDT Consuelo Guerrero DO BLOOD BANK TESTS [facility] [address] [place] [address] documented in this encounter Visit Diagnoses Diagnosis Encounter for other general examination documented in this encounter Care Teams Rotary Peel Oven Tender Relationship Specialty Start Date End Date Ashley Chavez ARNP [address] [place] [address] PCP - General 07/11/10 documented as of this encounter
--- OUTSIDE RECORDS SUMMARY | 2024-04-06 13:54 | XMS_ITS | Encounter Summary ---
Author Organization [facility] Address [address] [place] [address] Care Team Providers Care Diamond Powder Mixer Name Role Phone Ashley Chavez Primary Care Provider [phone] Encounter Details Date Type Department Care Team (Late st Contact Info) Description 05/12/2022 Lab Requisition [facility] Pathology & Laboratory Medicine - [address] [address] Outr Resulting Lab, Provider Social History Tobacco [...] Hold Hold 05/12/2022 22:46 EDT [facility] Blood VENOUS BLOOD / Unknown 05/12/2022 14:32 EDT 05/12/2022 21:40 EDT Provider Outr Resulting Lab LAB INFO SER VICE AND SUPPORT & PHONE RESULT Performing Organization Address [facility]/ZIP Co de Phone Number [facility] [address] [place] [address] * (ABNORMAL) HOMOCYSTEINE (05/12/2022 14:32 EDT) Homocysteine 14.7(H) 5.0 - 13.9 umol/L 05/13/2022 9:05 EDT [facility] Comment:Results may be false ly elevated if sample is not collected on ice or is not removed from cells within 1 hour of collection. Blood VENOUS BLOOD / Unknown 05/12/2022 14:32 EDT 05/12/2022 21:40 EDT Narrative [facility] - 05/13/2022 9:05 EDT Reference [...] BLOOD GAS ORDERABLES Performing Organization Address [facility] Co de Phone Number [facility] [address] [place] [address] * HAPTOGLOBIN (05/12/2022 14:32 EDT) Pathologist [facility] Haptoglobin 138 32 - 197 mg/dL 05/13/2022 9:55 EDT [facility] Blood VENOUS BLOOD / Unknown 05/12/2022 14:32 EDT 05/12/2022 21:36 EDT Provider Outr Resulting Lab CHEMISTRY & BLOOD GAS ORDERABLES Performing Organization Address [facility] Co de Phone Number [facility] [address] [place] [address] * (ABNORMAL) ANTI NUCLEAR AB (FRANCISCO), IFA (05/12/2022 14:32 EDT) FRANCISCO Interpretation Positive(A) Negative 05/13/2022 14:44 EDT [facility] Comment: Result is equal to [...] 1:5120 Speckled 05/13/2022 14:44 EDT [facility] Blood VENOUS BLOOD / Unknown 05/12/2022 14:32 EDT 05/12/2022 21:36 EDT Narrative [facility] - 05/13/2022 14:44 EDT Results were obtained with the INOVA NOVA Lite HEp-2 FRANCISCO Kit by indirect immunofluorescence. Provider Outr Resulting Lab IMMUNOLOGY A ND SEROLOGY ORDERABLES [facility] [address] [place] [address] documented in this encounter Visit Diagnoses Not on filedocumented in this encounter Care Teams Diamond Powder Mixer Relationship Specialty Start Date End Date Ashley Chavez ARNP [address] [place] [address] PCP - General 07/11/10 documented as of this encounter
--- OUTSIDE RECORDS SUMMARY | 2024-04-06 13:54 | XMS_ITS | Encounter Summary ---
[place] [address] Care Team Providers Care Special Projects Manager Name Role Phone Magdalena Acosta MD Primary Care Provider [phone] Encounter Details Date Type Department Care Team [...] 4:15 PM EDT Office Visit Dermatology at [place] [address] [facility] [place] [address] Marek Bonilla MD [address], [place] A DERMATOLOGY [place], [place] [phone] documented as of this encounter Visit Diagnoses Not on filedocumented in this encounter Care Teams Special Projects Manager Relationship Specialty Start Date End Date Magdalena Acosta MD [address] [place] [address] PCP - General Family Medicine 02/05/23 documented as of this encounter
--- OUTSIDE RECORDS SUMMARY | 2024-04-06 13:54 | XMS_ITS | Encounter Summary ---
Author Organization [facility] Address [address] [place] [address] Care Team Providers Care Saw Man Name Role Phone Unavailable Primary Care Provider Unavailabl e Encounter Details Date Type Department Care Team (Late st Contact Info) Description 07/08/2010 Results Only [facility] Non-Invasive Cardiology - [facility] [address] [place] [address] Ashley Chavez, WILLIAM [address] [place] [address] Social History Tobacco Use Types Packs/Day Years [...] ? 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 Accession #: ? [id number] ? : ? 1955 (Age: 54) ??F [...] Ashley THOMAS PATHOLOGY ORDERABLES PAUL ARELLANO [address] [place] [address] documented in this encounter Visit Diagnoses Not on filedocumented in this encounter
--- OUTSIDE RECORDS SUMMARY | 2024-04-06 13:54 | XMS_ITS | Encounter Summary ---
[place] [address] Care Team Providers Care Certified Pharmacist Assistant Name Role Phone Magdalena Acosta MD Primary Care Provider [phone] Encounter Details Date Type Department Care Team (Latest Contact Info) Description 07/08/2023 12:35 PM EST Laboratory Appointment Lab [address] [place] [address] S/P TAVR (transcatheter aortic valve [...] 4:15 PM EDT Office Visit Dermatology at [place] [address] [facility] [place] [phone] Marek Bonilla MD [address], [place] [address] (work) documented as of this encounter Procedures [...] 11:56 AM EST) Neutrophil % 73.2 % [facility] Neutrophil Absolute 3.40 1.70 - 6.10 x10(3)/mc L [facility] Lymph % 16.1 % [facility] Lymphocytes Abs 0.8(L) 0.9 - 3.2 x10(3)/mc L [facility] Monocyte % 9.7 % [facility] Monocyte Abs 0.4 0.3 - 0.9 x10(3)/mc L [facility] Eos % 0.4 % [facility] Eosinophils Abs 0.0 0.0 - 0.4 x10(3)/mc L [facility] Basophil % 0.4 % [facility] Baso Absolute 0.0 0.0 - 0.1 x10(3)/mc L [facility] Immature Gran % 0.20 % [facility] Comment: Immature granulocytes(IG's)percentage and absolute count will include metamyelocytes, myelocytes, and promyelocytes. Blood smears from CBCs yielding IG's will be scanned manually for concordance. If this scan disagrees with the automated IG or if promyelocytes are noted, a manual differential will be performed. Immature Gran Absolute 0.01 0.00 - 0.04 x10(3)/mc L [facility] Blood 07/08/2023 11:5 6 AM EST 07/08/2023 12:02 PM EST Narrative Resulting Agency Comment Spec In Lab Minh TOBAR HEMATOLOGY ORDERABLE S [facility] [place] [address] * (ABNORMAL) Hemogram (07/08/2023 11:56 AM EST) White Blood Cell 4.6 4.0 - 9.5 x10(3)/mc L [facility] Red Blood Cell 3.34(L) 4.00 - 5.21 x10(6)/mc L [facility] Hemoglobin 11.0(L) 11.7 - 15.5 g/dL [facility] Hematocrit 33.2(L) 35.7 - 45.8 % [facility] Mean Cell Volume 99.4(H) 82.6 - 94.4 fL [facility] Mean Cell Hemoglobin 32.9(H) 27.1 - 32.0 pg [facility] Mean Cell Hemoglobin Concentration 33.1 31.7 - 35.0 g/dL [facility] Platelet 166 145 - 357 x10(3)/mc L [facility] RDW Standard Deviation 47.1(H) 37.0 - 46.0 fL [facility] RDW coefficient of variation 13.0 11.5 - 14.1 % [facility] Mean Platelet Volume 9.0 7.6 - 12.9 fL [facility] NRBC% auto 0.0 % [facility] NRBC Absolute 0.000 0.000 - 0.000 x10(3)/mc L [facility] Blood 07/08/2023 11:5 6 AM EST 07/08/2023 12:02 PM EST Narrative Resulting Agency Comment Spec In Lab Minh TOBAR HEMATOLOGY ORDERABLE S [facility] [place] [address] * (ABNORMAL) Comprehensive metabolic panel (non-fasting) (07/08/2023 11:56 AM EST) Glucose 93 65 - 199 mg/dL [facility] Comment:Diabetes: >=200 mg/d L plus symptoms Blood Urea Nitrogen 19(H) 8 - 18 mg/dL [facility] Creatinine 0.81 0.70 - 1.20 mg/dL [facility] Sodium 142 135 - 145 mmol/L [facility] Potassium 3.8 3.5 - 5.0 mmol/L [facility] Comment: Please note: ??Patients with WBC >100,000 may have falsely elevated Potassium levels. ??For accurate Potassium quantification in these patients send serum separator tube (gold top) for subsequent determinations. ??Contact the Clinical Chemistry Laboratory if there are any questions. Chloride 104 98 - 107 mmol/L [facility] Carbon Dioxide 26 22 - 31 mmol/L [facility] Anion Gap 12 5 - 15 mmol/L [facility] Calcium 10.2 8.5 - 10.5 mg/dL [facility] Protein, Total 7.4 6.1 - 8.0 g/dL [facility] Albumin 4.1 3.2 - 5.2 g/dL [facility] Aspartate Aminotransferase 24 0 - 30 unit/L [facility] Alanine Aminotransferase 12 0 - 30 unit/L [facility] Alkaline Phosphatase 93 35 - 105 unit/L [facility] Bilirubin, Total 0.3 0.2 - 1.3 mg/dL [facility] Est Glomerular Filtration Rate 80 >=60 mL/min/1. 73 m?? [facility] Comment: This patient's estimated GFR was [...] Lab Alirio Esparza MD CHEMISTRY ORDERABLE S [facility] [place] [address] documented in this encounter Visit Diagnoses Diagnosis S/P TAVR (transcatheter aortic valve replacement) Severe aortic stenosis Aortic valve disorders documented in this encounter Care Teams Certified Pharmacist Assistant Relationship Specialty Start Date End Date Magdalena Acosta MD [address] [place] [address] PCP - General Family Medicine 02/05/23 documented as of this encounter
--- OUTSIDE RECORDS SUMMARY | 2024-04-06 13:55 | XMS_ITS | Encounter Summary ---
Author Organization [facility] [place] [address] Care Team Providers Care Quarter Trimmer Name Role Phone Magdalena Acosta MD Primary Care Provider [phone] Encounter Details Date Type Department Care Team (Late st Contact Info) Description 05/27/2023 Refill Cardiology at [address] [phone] Vero Marrero, RN Social History Tobacco Use Types Packs/Day Years Used Date Smoking Tobacco: Never Smokeless Tobacco: Never Alcohol Use Standard Drinks/Week Comments No 0 (1 standard drink = 0.6 oz pur e alcohol) none [facility] Inpatient Questions Answer Date Recorded Does Anyone [...] May 27, 2023 Jay Maza PA to Pa 05/27/23 2:44 PM OK to change ticagrelor to Clopidogrel. Now, she should be taking ticagrelor 90mg BID. When she switches, she can take ticagrelor, then the next morning, stop ticagrelor, instead take clopidogrel 300mg once, then after that 75mg once daily. Jay Marrero c 40a crew chief Clinic at [facility] [phone] * Telephone Encounter - Vero Marrero RN [...] Vero Marrero RN Cardiology Clinic at [facility] [address] documented in this encounter Plan of Treatment Upcoming Encounters Date Type Department Care Team (Late st Contact Info) Description 03/01/2025 4:15 PM EDT Office Visit Dermatology at [place] [address] [place] [phone] Marek Bonilla MD [address], [place] [address] documented as of this encounter Visit Diagnoses Diagnosis Aortic valve stenosis, etiology of cardiac valve disease unspecified documented in this encounter Care Teams Quarter Trimmer Relationship Specialty Start Date End Date Magdalena Acosta MD [address] [place] [address] PCP - General Family Medicine 02/05/23 documented as of this encounter
--- OUTSIDE RECORDS SUMMARY | 2024-04-06 13:55 | XMS_ITS | Encounter Summary ---
Author Organization [facility] [place] [address] Care Team Providers Care Global Upstream Marketing Manager Name Role Phone Magdalena Acosta MD Primary Care Provider [phone] Reason for Referral * Diagnostic Test (Routine) - Closed Specialty Diagnoses / Procedures Referred By Contac t Referred To Contact Cardiology Diagnoses S/P TAVR (transcatheter aortic valve replacement) Procedures Echocardiogram Transthoracic Vinod Juárez PA [facility] [place] [address] [facility] [place] [address] Referral ID Status Reason Start Date Expiration Date V isits Requested Visits Authorized [id number] Closed Specialty Service Requested 05/22/2023 05/21/2024 1 1 Reason for Visit * Diagnostic Test (Routine) - Closed Specialty Diagnoses / Procedures Referred By Contac t Referred To Contact Cardiology Diagnoses S/P TAVR (transcatheter aortic valve replacement) Procedures Echocardiogram Transthoracic Vinod Juárez PA [facility] [place] [address] [facility] [place] [address] Referral ID Status Reason Start Date Expiration Date V isits Requested Visits Authorized [id number] Closed Specialty Service Requested 05/22/2023 05/21/2024 1 1 Encounter Details Date Type Department Care Team (Latest Contact Info) Description 07/08/2023 10:19 AM EST - 07/08/2023 11:59 PM EST Hospital Encounter Non[place] [address] Alirio Esparza MD S/P TAVR (transcatheter aortic [...] Verio test strips Strip USE DAILY 01/03/2022 [employer] Delica Plus Lancet 33 gauge Misc USE [...] 4:15 PM EDT Office Visit Dermatology at [place] [address] [phone] Marek Bonilla MD [address], [address] [place] [address] documented as of this encounter Procedures Procedure [...] EST Narrative 07/08/2023 12:26 PM EST [address] [place] [address] ? Echocardiogram Report Name: ONESIMO THACKER ?Study Date: 07/08/2023 10:31 AMBP: 118/60 mmHg ? Patient Location: : 1955 ? Height: 155 cm ? Account: [id number] Age: 67 yrs ? Weight: 74 kg Gender: Female ?BSA: 1.7 m2 Ordering Physician: ALIRIO ESPARZA Referring Physician: VINOD JUÁREZ Performed By: Felicia Norris RDCS Reason For Study: S/P TAVR Exam Location: [facility]. Interpretation Summary Left ventricular systolic function [...] no significant change (post-procedure). Procedure Limited - 05985. Doppler - 97950. Color Doppler - 06874. Satisfactory quality. This study is limited because [...] Note Lee Kincaid MD - 07/08/2023 [address] [place] [address] Echocardiogram Report Name: ANDREWONESIMO Study Date: 0:31 AMBP: 118/60 mmHg Patient Location: : 1955 Height: 155 cm Account: [id number] Age: 67 yrs Weight: 74 kg Gender: Female BSA: 1.7 m2 Ordering Physician: ALIRIO ESPARZA Referring Physician: VINOD JUÁREZ Performed By: Felicia Norris RDCS Reason For Study: S/P TAVR Exam Location: [facility]. Interpretation Summary Left ventricular systolic function [...] is nosignificant change (post-procedure). Procedure Limited - 26130. Doppler - 54370. Color Doppler - 38833. Satisfactoryquality. This study is limited because of [...] replacement) documented in this encounter Care Teams Global Upstream Marketing Manager Relationship Specialty Start Date End Date Magdalena Acosta MD [address] [place] [address] PCP - General Family Medicine 02/05/23 documented as of this encounter
--- OUTSIDE RECORDS SUMMARY | 2024-04-06 13:55 | XMS_ITS | Encounter Summary ---
[place] [address] Care Team Providers Care Butcher Supervisor Name Role Phone Magdalena Acosta MD Primary Care Provider [phone] Encounter Details Date Type Department Care Team [...] 4:15 PM EDT Office Visit Dermatology at [place] [address] [place] [address] Marek Bonilla MD [address], [facility]OLOGY [place], [place] [id number] documented as of this encounter Visit Diagnoses Not on filedocumented in this encounter Care Teams Butcher Supervisor Relationship Specialty Start Date End Date Magdalena Acosta MD [address] [place] [address] PCP - General Family Medicine 02/05/23 documented as of this encounter
--- OUTSIDE RECORDS SUMMARY | 2024-04-06 13:56 | XMS_ITS | Encounter Summary ---
[place] [address] Care Team Providers Care Construction Management Instructor Name Role Phone Magdalena Acosta MD Primary Care Provider [phone] Encounter Details Date Type Department Care Team [...] 4:15 PM EDT Office Visit Dermatology at [place] [address] [place] [address] Marek Bonilla MD [address], TOD[facility] A DERMATOLOGY [place], [place] [id number] documented as of this encounter Visit Diagnoses Not on filedocumented in this encounter Care Teams Construction Management Instructor Relationship Specialty Start Date End Date Magdalena Acosta MD [address] [place] [address] PCP - General Family Medicine 02/05/23 documented as of this encounter
--- OUTSIDE RECORDS SUMMARY | 2024-04-06 13:56 | XMS_ITS | Encounter Summary ---
[place] [address] Care Team Providers Care Aircraft Inspection Record Clerk Name Role Phone Magdalena Acosta MD Primary Care Provider [phone] Reason for Visit * Auth/Cert (Routine) Specialty Diagnoses / Procedures Referred By Contac t Referred To Contact Diagnoses Symptomatic severe aortic stenosis with low ejection fraction NSTEMI, CHF Haris Chua MD [facility] [place] [address] [facility] Referral ID Status Reason Start Date Expiration Date Visits Re quested Visits Authorized [id number] 1 1 Encounter Details Date Type Department Care Team (Late st Contact Info) Description 05/12/2023 7:35 AM EDT Anesthesia [place] [address] [facility] [place] [address] [facility] [place] [address] Anesthesia Record Procedure Summary Procedure Name Responsible [...] cephalic vein (lateral side of arm), left; gjnz-[id number]-[id number] catheter system; Anatomical Landmarks; US Not Used; [...] RN LDA Cath/EP Sheath 05/12/23; 0733; 14 Malagasy (Fr); Right; Femoral; Arterial 05/12/23 0733 by Guerda Bender, RN 05/12/23 0830 by Guerda Bender RN LDA Cath/EP Sheath 05/12/23; 0734; 6 Malagasy (Fr); Right; Femoral; Venous 05/12/23 0734 by Guerda Bender RN 05/12/23 0817 by Guerda Bender RN LDA Cath/EP Sheath 05/12/23; 0734; 7 Malagasy (Fr); Left; Femoral; Arterial 05/12/23 0734 by Guerda Bender, RN 05/12/23 0837 by Guerda Bender RN LDA Cath/EP Sheath 05/12/23; 0734; 6 Malagasy (Fr); Left; Femoral; Venous 05/12/23 0734 by [...] Procedure Summary Date: 05/12/23 Room / Location: [facility] / [facility] Anesthesia Start: 734 [...] All Anesthesia Providers: Anesthesiologist: Lynda Mcgowan MD Web Analyst: Nico Graham MD Vitals Value Taken Time [...] 05/08/2023 ??? Mild coronary artery disease by [facility] 11/09/2022 05/08/2023 ??? Heart failure with [...] [facility],POSSIBLE PCI (WRVU 5.6) performed by Nitesh Escobedo MD at [facility] CATH [facility]S ??? PRO AORTOPLAS FOR SUPRAVALV STEN N/A 09/21/2016 @AORTOPLASTY FOR SUPRAVALVULAR STENOSIS (WRVU 29.33) performed by Alirio Esparza MD at [facility] MAIN OR ??? PRO REPLACEMENT PROSTHETIC AORTIC VALVE OPEN W CARDIOPULMONARY BYPASS HOMOGRF/STENT N/A 09/21/2016 @REPLACE AORTIC VALVE, OPEN, W\CPB, W\PROSTHETIC VALVE (WRVU 41.32) performed by Alirio Esparza MD at [facility] MAIN OR Social History Tobacco [...] 3 general, with a(n) intravenous induction Add-on [id number] TAVR. In cardiogenic shock. Has arterial line, [...] 4:15 PM EDT Office Visit Dermatology at [place] [address] [place] [id number] Marek Bonilla MD [address], [place] [address] documented as of this encounter Visit Diagnoses [...] mL/hr documented in this encounter Care Teams Aircraft Inspection Record Clerk Relationship Specialty Start Date End Date Magdalena Acosta MD [address] [place] [address] PCP - General Family Medicine 02/05/23 documented as of this encounter
--- OUTSIDE RECORDS SUMMARY | 2024-04-06 13:56 | XMS_ITS | Encounter Summary ---
Author Organization [facility] Address [facility] [place] [address] Care Team Providers Care Ambulatory Care Nurse Name Role Phone Magdalena Acosta MD Primary Care Provider [phone] Reason for Referral * Diagnostic Test (Routine) - Closed Specialty Diagnoses / Procedures Referred By Contac t Referred To Contact Cardiology Diagnoses S/P TAVR (transcatheter aortic valve replacement) Procedures Echocardiogram Transthoracic Vinod Juárez PA [facility] [place] [address] [facility] [place] [address] Referral ID Status Reason Start Date Expiration Date V isits Requested Visits Authorized [id number] Closed Specialty Service Requested 05/22/2023 05/21/2024 1 1 * Home Health Care (Routine) - Closed Specialty Diagnoses / Procedures Referred By Contac t Referred To Contact Diagnoses S/P TAVR (transcatheter aortic valve replacement) Alirio Hudson MD [facility] CARDIOTHORACIC SURGERY [address] [facility] [address] [place] [address] Referral ID Status Reason Start Date Expiration Date V isits Requested Visits Authorized [id number] Closed Consult, Test & Treat 05/22/2023 11/18/2023 999 999 * Consultation (Routine) - Closed Specialty Diagnoses / Procedures Referred By Crispin maxwell Referred To Contact Cardiology Diagnoses S/P TAVR (transcatheter aortic valve replacement) Alirio Hudson MD [facility] [place] [address] Cardiac Rehab, [address] [place] [address] Referral ID Status Reason Start Date Expiration Date V isits Requested Visits Authorized [id number] Closed Consult, Test & Treat 05/22/2023 11/18/2023 36 36 * Diagnostic Test (Routine) - Closed Specialty Diagnoses / Procedures Referred By Crispin maxwell Referred To Contact Cardiology Diagnoses Aortic valve stenosis, etiology of cardiac valve disease unspecified Procedures Echocardiogram Transthoracic Transesophageal Echocardiogram (YUSRA) Radha Hollins MD [facility] [place] [address] [facility] [place] [address] Referral ID Status Reason Start Date Expiration Date V isits Requested Visits Authorized [id number] Closed Specialty Service Requested 05/11/2023 05/10/2024 1 1 Reason for Visit * Auth/Cert (Routine) Specialty Diagnoses / Procedures Referred By Crispin maxwell Referred To Contact Diagnoses Symptomatic severe aortic stenosis with low ejection fraction NSTEMI, CHF Enrique Chua MD [facility] [place] [address] [facility] Referral ID Status Reason Start Date Expiration Date Visits Re quested Visits Authorized [id number] 1 1 Encounter Details Date Type Department Care Team (Latest Contact Info) Description 05/08/2023 9:14 AM EDT - 05/22/2023 10:46 AM EDT Hospital Encounter Heart and Vascular Unit Level 4 [place] [address] Enrique Chua MD [facility] [place] [address] Juan Luis Gonzalez MD [facility] [place] [address] Radha Hollins MD [facility] [address] Alirio Hudson MD S/P TAVR (transcatheter aortic valve replacement) (Primary Dx); Aortic valve stenosis, etiology of cardiac valve disease unspecified; Symptomatic severe aortic stenosis with low ejection fraction; Heart failure with reduced ejection fraction due to heart valve disease; Mild coronary artery disease by [facility] 11/09/2022; Mixed connective tissue disease; Neck [...] Patient Age: 67 y.o. Birthdate: 1955 Language: Amharic Race: White Ethnicity: Not nor Admit Date: 05/08/2023 Discharge Date: 05/22/2023 Attending Physician: Alirio Hudson MD Follow-up Recommendations for Providers: Please continue routine management of cardiovascular risk factors including blood pressure, lipids,glucose, etc. Please note any medication changes. Patient to follow up with PCP, Magdalena Acosta MD, or Primary Fleet Sales Manager, Avis Mejia MD, in ~ 7-10 days. Patient to follow up with Geosciences Professor, Dr. Antelmo Sharma, in 2 weeks with an EKG, Echo, CBC, and CMP. Patient to follow up with Nephrology, their office to arrange. Jglt-Mplvjn-nm interval: After initial 30 day follow-up appointment , all TAVR patients will follow-up again in one year with an echo. 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 Secondary Diagnoses: Active Hospital Problems Diagnosis S/P TAVR (transcatheter aortic valve replacement) Cardiogenic shock Symptomatic severe aortic stenosis with low ejection fraction Mild coronary artery disease by [facility] 11/09/2022 Heart failure with reduced ejection [...] Tube Placement Right 05/18/2023 Laure Ricks PA [facility] INTERVENTIONL RAD PRG CATH PLMT LEFT HEART CATH & ARTS W/INJ & ANGIO IMG S&I N/A 11/09/2022 CORONARY ANGIOGRAPHY; W [facility],POSSIBLE PCI (WRVU 5.6) performed by Mario Alberto Escobedo MD at [facility] CATH LABS PRG COMBINED RIGHT & LEFT HEART CATH W/INJ L VENTRICULOGRAPHY, IMG S&I N/A 05/12/2023 COMBINED RIGHT & LEFT HEART CATH,INC INJ FOR L VENTRICULOGRAPHY (WRVU 5.99) performed by Antelmo Sharma MD at [facility] CATH LABS PRO AORTOPLAS FOR SUPRAVALV STEN N/A 09/21/2016 @AORTOPLASTY FOR SUPRAVALVULAR STENOSIS (WRVU 29.33) performed by Alirio Hudson MD at [facility] MAIN OR PRO REPLACE AORTIC VALVE (TAVR/FEDERICO)PERC FEMORAL ARTERY APPROACH 05/12/2023 @TRANSCATHETER AORTIC VALVE REPLACEMENT (TAVR), PERCUTANEOUS FEMORAL (WRVU 22.47) performed by Alirio Hudson MD at [facility] CATH LABS PRO REPLACEMENT PROSTHETIC AORTIC VALVE OPEN W CARDIOPULMONARY BYPASS HOMOGRF/STENT N/A 09/21/2016 @REPLACE AORTIC VALVE, OPEN, W\CPB, W\PROSTHETIC VALVE (WRVU 41.32) performed by Alirio Hudson MD at [facility] MAIN OR Prior To Admission Medications Medications [...] Major Procedures/Operations: 05/12/23: Successful right transfemoral TAVR Fbqty-tq-Hlkrf with a 23 mm Lai 3 THV. Left coronary protection with left main MINNA. Hospital Course: #Severe prosthetic s/p valve in valve TF TAVR #Low coronary heights s/p left main stent for coronary protection #Type 2 NSTEMI, present on arrival, resolved #Acute decompensated HFrEF #Cardiogenic shock #EVANS / Cardiorenal syndrome Purnima Thacker was admitted to [facility] on 05/08/2023 via the Cardiology Service with [...] and she was brought to the laborer wharf the following morning where Drs. Alirio Hudson [...] if you have questions. Please call your Geosciences Professor's office if you have any discharge or drainage from your procedural sites. Your Geosciences Professor, Dr. Antelmo Sharma and/or the Residential Support Specialist may be reached at . Antibiotic prophylaxis: You will need to take antibiotics prior to many invasive tests and treatments, such as dental cleaning, which should be done every 6 months. Your primary care physician or your dentist can prescribe this medication. Please refer to the card with the [place] Guidelines for more information. You have been provided with a copy of this card. Please refer to the [place] [employer] Guidelines for more information. Good [...] should resume a low fat, low cholesterol, [place] Diet Driving: No restrictions. Shower/Bath: You may shower daily. No baths, soaking, or swimming for the first week. Wound care: Wash the sites daily with soap and rinse well, pat dry. Assess for any signs of infection such as increased redness, pain, warmth or drainage. Please call your solar panel installer's office if you have any discharge or drainage from your procedural sites. If there is a lot of swelling, apply mamta wraps during the day and remove at bedtime. Elevate your legs when you are sitting. Home oxygen therapy: N/A Follow up appointments: Please schedule a follow-up appointment with your PCP, Magdalena Acosta MD, or Primary Fleet Sales Manager in ~ 7-10 days. You have a follow-up appointment with your Geosciences Professor, Dr. Antelmo Sharma, in 2 weeks with an EKG, Echo, and labs prior to your appointment. You will need follow-up with Nephrology, their office will arrange. Tiln-Nwswpr-om interval: After initial 30 day follow-up appointment , all TAVR patients will follow-up again in one year with an echo. Cardiac Rehabilitation: Purnima Thacker was seen today regarding participation in the outpatient Phase 2 Cardiac Rehabilitation at [facility]. The patient agrees to a referral to this program. The referral will be sent at discharge and the patient should be contacted by the Program within 1- 2 weeks from discharge. Future Appointments and Orders Future Appointments and Orders Future Appointments Provider Department Dept Phone 07/29/2023 11:00 AM Magdalena Pearlta MD [place] [facility] [place] at: [facility] [address] [phone] 02/11/2024 2:00 PM Marek Bonilla MD Dermatology at [place] Arrive at: [facility] [address] [phone] Future Orders Complete By Expires Type and Screen Future Surgery, [facility] SAME DAY [place]GRAM ONLY) [[id number] Custom] 05/11/2023 Process Instructions: This test is intended ONLY for patients with upcoming surgery for testing prior to the day of surgery obtained through the same day program (4V or SDP). For ALL OTHER PATIENTS, order a Type and Screen ([id number]) This order includes the physician order for an ABO Recheck if requested by the Blood Bank. Scheduling Instructions: Comments: Questions: Date of surgery: CBC (with Diff) [[id number] Custom] 06/05/2023 12/05/2023 Process Instructions: INCLUDES: WBC, RBC, Hgb, Hct, Platelets, RBC Indices and Differential Scheduling Instructions: Comments: Questions: Comprehensive metabolic panel (non-fasting) [LAB17 Custom] 06/05/2023 08/20/2023 Process Instructions: INCLUDES: Calcium, T Protein, Albumin, AST, ALT, Alk Phos, T Bili, BUN, Creat, GFR, Glucose, Lytes. Scheduling Instructions: Comments: Questions: Echocardiogram Transthoracic [52447 CPT(R)] 06/05/2023 12/05/2023 Process Instructions: Scheduling Instructions: Questions: Where will study be performed?: [facility] Does the patient have Congenital Heart Disease?: Does patient require sedation?: GA rationale: EKG 12 Lead [10921 CPT(R)] 06/05/2023 12/05/2023 Process Instructions: Scheduling Instructions: Questions: Which location will this be performed?: [place] Is a rhythm strip needed?: No [facility] [EQ161 Custom] As directed Process Instructions: Scheduling Instructions: Questions: Device Needed: WALKER (E0143) Patient Height (cm): 154.9 cm (5' 0.98) Patient Weight: 75.4 kg (166 lb 3.2 oz) Diagnosis: Unsteady gait when walking Referral to Cardiac Rehab [JVA426 Custom] As directed Process Instructions: If no progress note charted, please enter Clinical details in comments. Scheduling Instructions: Questions: My question or request is: s/p TAVR. Cardiac rehab at [facility]. Referral to Home Health [REF34 Custom] As directed Process Instructions: If no progress note charted, please enter Clinical details in comments. Scheduling Instructions: Comments: DOCUMENTATION FOR VNA SERVICES PATIENT'S LOCATION: Purnima Thacker [address] [place] [phone] (home) Secure Software Assessor's Name: Self and brother Raymond In discussion with the attending physician, it is certified that this patient is under his/her careand that MD, or an LIMEROCK TOWER LOADER, REPAIR MECHANIC, or PA who is working directly with him/her, had a yiae-sg-urme encounter that meets the physician cmpb-rp-whhc encounter requirements with this patient on 05/22/2023. [...] for managing ADLs. HOME HEALTH CARE AGENCY: [facility]. [address] [place] [address] PHONE: [phone] FAX: [phone] Start of care: Ideally 24-48 hours after [...] Magdalena Acosta MD [address] / [facility] [address] All VNA agencies which cover the area of patient's residence have been reviewed, either verbally joao writing, and patient has chosen the home health care agency noted. Questions: Disciplines Requested: Physical Therapy Occupational Therapy Discharge References/Attachments None Arrangements for VNA/home care: As above. (delete if no VNA) Signed: EKATERINA NAVARRETE [facility] Section of Cardiac Surgery Date: 05/22/2023 CC: Magdalena Acosta MD Red LionMario Alberto MD [address] [place] [address] documented in this encounter Discharge Instructions * Patient Instructions* Vinod Juárez PA - 05/22/2023 9:32 AM EDT TAVR Discharge Instructions: Call your doctor if: You have a fever of greater than 101 degrees, shaking chills, if you develop redness or drainage from your procedure sites, or if you have questions. Please call your Geosciences Professor's office if you have any discharge or drainage from your procedural sites. Your Geosciences Professor, Dr. Antelmo Sharma and/or the Residential Support Specialist may be reached at . Antibiotic prophylaxis: You will need to take antibiotics prior to many invasive tests and treatments, such as dental cleaning, which should be done every 6 months. Your primary care physician or your dentist can prescribe this medication. Please refer to the card with the [place] [employer] Guidelines for more information. You have been provided with a copy of this card. Please refer to the [place] Guidelines for more information. Good [...] should resume a low fat, low cholesterol, [place] Diet Driving: No restrictions. Shower/Bath: You may shower daily. No baths, soaking, or swimming for the first week. Wound care: Wash the sites daily with soap and rinse well, pat dry. Assess for any signs of infection such as increased redness, pain, warmth or drainage. Please call your solar panel installer's office if you have any discharge or drainage from your procedural sites. If there is a lot of swelling, apply mamta wraps during the day and remove at bedtime. Elevate your legs when you are sitting. Home oxygen therapy: N/A Follow up appointments: Please schedule a follow-up appointment with your PCP, Magdalena Acosat MD, or Primary Fleet Sales Manager in ~ 7-10 days. You have a follow-up appointment with your Geosciences Professor, Dr. Antelmo Sharma, in 2 weeks with an EKG, Echo, and labs prior to your appointment. You will need follow-up with Nephrology, their office will arrange. Fmji-Hkfquc-um interval: After initial 30 day follow-up appointment , all TAVR patients will follow-up again in one year with an echo. Cardiac Rehabilitation: Purnima Thacker was seen today regarding participation in the outpatient Phase 2 Cardiac Rehabilitation at [facility]. The patient agrees to [...] ins ( tef) Haven Ba, PT Pager: [phone] Physical Therapy Inpatient Rehabilitation Department * Nico [...] 0600 and on the weekends please page [phone]. * Jory Paniagua - 05/20/2023 3:52 PM [...] vomiting Last Bowel Movement: 05/20/23 Jory Paniagua Medicine Tech * Rashid Tong, OT - 05/20/2023 3:16 [...] Tube Placement Right 05/18/2023 Laure Ricks PA [facility] INTERVENTIONL RAD PRG CATH PLMT LEFT HEART CATH & ARTS W/INJ & ANGIO IMG S&I N/A 11/09/2022 CORONARY ANGIOGRAPHY; W [facility],POSSIBLE PCI (WRVU 5.6) performed by Mario Alberto Escobedo MD at [facility] CATH LABS PRG COMBINED RIGHT & LEFT HEART CATH W/INJ L VENTRICULOGRAPHY, IMG S&I N/A 05/12/2023 COMBINED RIGHT & LEFT HEART CATH,INC INJ FOR L VENTRICULOGRAPHY (WRVU 5.99) performed by Antelmo Sharma MD at [facility] CATH LABS PRO AORTOPLAS FOR SUPRAVALV STEN N/A 09/21/2016 @AORTOPLASTY FOR SUPRAVALVULAR STENOSIS (WRVU 29.33) performed by Alirio Hudson MD at [facility] MAIN OR PRO REPLACE AORTIC VALVE (TAVR/FEDERICO)PERC FEMORAL ARTERY APPROACH 05/12/2023 @TRANSCATHETER AORTIC VALVE REPLACEMENT (TAVR), PERCUTANEOUS FEMORAL (WRVU 22.47) performed by Alirio Hudson MD at [facility] CATH LABS PRO REPLACEMENT PROSTHETIC AORTIC VALVE OPEN W CARDIOPULMONARY BYPASS HOMOGRF/STENT N/A 09/21/2016 @REPLACE AORTIC VALVE, OPEN, W\CPB, W\PROSTHETIC VALVE (WRVU 41.32) performed by Alirio Hudson MD at [facility] MAIN OR Social History: Patient lives alone. Home Setup: Pt lives on one level with tub shower and three steps to enter. DME: none used CURRICULUM AND ASSESSMENT DIRECTOR Baseline ADL/Mobility: Independent with ADLs and IADLs. [...] WFL Vision & Perception: corrective lenses multimedia designer Communication: WFL Range of motion, strength, coordination: [...] Discharge Disposition (OT): swing bed rehabilitation facility, nursing home facility(vs home with support for IADLs) [...] Discharge planning. Total Minutes, Occupational Therapy: 28 ([id number]) OT Evaluation Code Rationale: Diagnosis & Pertinent Co-Morbidities affecting Plan of Care: see PMHx Occupational Profile & Client History: Brief Expanded Extensive x Assessment of Occupational Performance: 1-3 performance deficits 3-5 performance deficits x 5 + performance deficits Clinical Decision Making: Low Moderate High x Clinical decision making of moderate complexity using standardized patient assessment instrument and measurable assessment of functional outcome. Pager: [phone] TONG MIKE OT 05/20/2023 Occupational Therapy Rehabilitation [...] 0600 and on the weekends please page [phone]. * Rylie Rodriguez MD - 05/19/2023 3:59 [...] and plan. Cynthia Blackburn MD Nephrology Pager: [phone] * Diana Espino - 05/19/2023 1:49 PM EDT Chief Executive Or Managing Director Encounter Note Patient Name: Purnima Thacker : [id number] MR#: [id number] Admit Date: 05/08/2023 9:14 AM Hospital Day [...] returning home alone. Anticipated Discharge Disposition (PT): nursing home facility, swing bed rehabilitation facility Consult [...] as stated. Total Minutes, Physical Therapy: 38 ([phone]) Henrik Dale CANDY Navarrete Pager: [phone] Physical Therapy Inpatient Rehabilitation Department * Nico [...] 0600 and on the weekends please page [phone]. * Laure Ricks PA - 05/19/2023 7:56 [...] Ricks PA-C Interventional Radiology IR Team Pager [phone] * Consuelo Espinoza RN - 05/18/2023 4:13 PM EDT ANGIO NURSING DATABASE Name: Purnima Thacker Date of : 1955 AGE: 67 y.o. Address: [address] [place] [phone] (home) Mobile: No relevant phone numbers on [...] and plan. Cynthia Blackburn MD Nephrology Pager: [phone] * Magdalena Puri, ANURAG - 05/18/2023 10:51 AM EDT Images from the original note were not included. [facility] [address] [place], [place] [phone] STRUCTURAL HEART DISEASE CONSULTATION NOTE PRIMARY CARE [...] stenosis. She is now status post TAVR Txakh-gy-Bafmq with a 23 mm Lai 3 THV 05/12/[address] Sharma. Preliminary findings: Successful right transfemoral TAVR Tuipc-hr-Jguwa with a 23 mm Lai 3 THV. [...] perforation. Interval Events: - 05/12 Transferred to [facility] post- TAVR for pressor/inotropic support [...] ejection fraction Mild coronary artery disease by [facility] 11/09/2022 Heart failure with reduced ejection [...] mg 5 mg Oral Q3H PRN Mara Serarno APRN 5 mg at 05/17/23 2025 ticagrelor [...] mg 81 mg Oral Daily Mara Serrano TELEMARKETER SUPERVISOR 81 mg at 05/18/23 0826 ondansetron (pf) [...] stenosis. She is now status post TAVR Ylzab-tv-Srema with a 23 mm Lai 3 THV [...] Magdalena Puri APRN Structural Heart Team Pager [phone] Team Office Please see addendum by Dr. Sharma for final plan and recommendations Associated attestation - Antelmo Sharma MD - 05/19/2023 10:52 PM EDT I have reviewed Magdalena Puri APRN's above history and I agree with the details as written. The assessment and plan were formulated in discussion with me and I agree with them as documented. Antelmo Sharma MD Pager [phone] * Nico Palacios PA - 05/18/2023 8:13 [...] 0600 and on the weekends please page [phone]. * Loli Hernandez, PT - 05/17/2023 5:27 [...] returning home alone. Anticipated Discharge Disposition (PT): nursing home facility, swing bed rehabilitation facility Consult [...] plan as stated. Time IN / OUT: 8218-6999 Total Minutes, Physical Therapy: 54 Billing Code: te-sx2, te-f, gait LOLI HERNANDEZ PT Pager: [phone] Physical Therapy Inpatient Rehabilitation Department * Cynthia [...] Well controlled. Cynthia Blackburn MD Nephrology Pager: [phone] * Mara Serrano, TELEMARKETER SUPERVISOR - 05/17/2023 8:26 AM EDT Cardiac Surgery [...] 0600 and on the weekends please page [phone]. * Guerda Del Valle - 05/16/2023 10:44 AM EDT Nutrition Services Note - Low Nutrition Acuity Purnima Thacker is a 67 y.o. female Reason for intervention: hospital day 9 Nutrition Plan: Continue diet order Encourage good PO Lasix and Zofran noted Added special serve: open containers Monitor weight Patient scheduled for a hospital day 9 nutrition evaluation. Body Hanger met with pt at bedside. Pt reports that her appetite and PO has much improved since admission. Denies nausea/vomiting or trouble chewing/swallowing. Body Hanger provided snack list but pt not interested in adding snacks at this time. Her only concern was that she is worried that she will eat too much which will cause too much pressure in her stomach. Body Hanger assured pt and suggested eating smaller but [...] Last Bowel Movement: 05/10/23 Guerda Del Valle Medicine Tech * Vinod Juárez PA - 05/16/2023 10:19 [...] 0600 and on the weekends please page [phone]. * Michael Jeffers MD - 05/16/2023 8:11 AM EDT Images from the original note were not included. Hypertension-Nephrology Inpatient Follow-up Purnima Thacker [id number] 1955 ID: 67 y.o. old female seen [...] IRONSAT 12 (L) 05/16/2023 SFOLATE >20.0 07/03/2022 [id number] 07/03/2022 Lab Results Component Value Date [...] Dr. Ayoub. Please contact me at phone: [phone] or pager: [phone] with any questions. Michael Jeffers MD Nephrology [...] -Nephrology consulted, labs and renal US ordered -Juliette removed, ambulated around the unit -bilateral pleural [...] 0600 and on the weekends please page [phone]. * Hortencia Cody MD - 05/15/2023 2:07 [...] not included. Hypertension-Nephrology Inpatient Follow-up Purnima Thacker [id number] 1955 ID: 67 y.o. old female seen [...] HGB 7.8 (L) 05/13/2023 SFOLATE >20.0 07/03/2022 [id number] 07/03/2022 Lab Results Component Value Date [...] Dr. Ayoub. Please contact me at phone: [phone] or pager: [phone] with any questions. Michael Jeffers MD Nephrology [...] outlined inthis evaluation. HAVEN BA, PT Pager: [phone] Physical Therapy Inpatient Rehabilitation Department Time IN / OUT: 9408-2553 Total time: Total Minutes, Physical Therapy: 30 [...] 0600 and on the weekends please page [phone]. * Antelmo Sharma MD - 05/14/2023 7:56 AM EDT Images from the original note were not included. [facility] [place] [place] [phone] STRUCTURAL HEART DISEASE CONSULTATION NOTE PRIMARY CARE [...] stenosis. She is now status post TAVR Eyzcw-tf-Pdmbd with a 23 mm Lai 3 THV 05/12/[address] Sharma. Preliminary findings: Successful right transfemoral TAVR Xizes-og-Cndup with a 23 mm Lai 3 THV. [...] ejection fraction Mild coronary artery disease by [facility] 11/09/2022 Heart failure with reduced ejection [...] stenosis. She is now status post TAVR Bpadr-vh-Xczxa with a 23 mm Lai 3 THV [...] Dale ANURAG Kaplan Structural Heart Team Pager [phone] Team Office Please see addendum by Dr. [...] exposure. Nephrology consultationtoday. Antelmo Sharma MD Pager [phone] * Antelmo Cardenas RN - 05/14/2023 5:18 AM EDT Pt AOx4, complaining of mild/moderate generalized pain (states her Meloxicam is effective at home) currently refusing prn oxycodone. NAEON, hemodynamically stable on Milrinone, Maps >65, ST in vry998's down to NSR with frequent multifocal PVC's. [...] original note were not included. [facility] [place] [place] [address] STRUCTURAL HEART DISEASE PROGRESS NOTE PRIMARY CARE [...] stenosis. She is now status post TAVR Wgqqf-ko-Wtxvs with a 23 mm Lai 3 THV 05/12/[address] Sharma. Preliminary findings: Successful right transfemoral TAVR Rokje-ws-Sajex with a 23 mm Lai 3 THV. [...] or perforation. Interval Events: - Transferred to [facility] post- TAVR for pressor/inotropic support [...] ejection fraction Mild coronary artery disease by [facility] 11/09/2022 Heart failure with reduced ejection [...] stenosis. She is now status post TAVR Dwlga-ht-Pxfhc with a 23 mm Lai 3 THV [...] Brody Kaplan APRN Structural Heart Team Pager [phone] Team Office Please see addendum by Dr. [...] DAPT moving forward. Antelmo Sharma MD Pager [phone] * Bonita Miguel PA - 05/13/2023 8:30 AM EDT Cardiac Surgery Progress Note Purnima Thacker is a 67 y.o. 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 PMH of s/p tissue AVR (2017), mixed connective tissue disease HTN, HLD, NICOLAS, diverticulosis, rosacea, essential tremor, and depression. 24h Events: From laborer wharf for above procedure Extubated at ~1600 to [...] soft b/l, no evidence of hematoma. Tubes/Lines/Drains: Juliette, RIJ, A-line, Art, PIV Assessment/Plan: 67 y.o. [...] 0600 and on the weekends please page [phone]. * Onelia Schwartz MD - 05/12/2023 1:44 [...] ejection fraction Mild coronary artery disease by [facility] 11/09/2022 Heart failure with reduced ejection [...] FiO2 weaned to 40%. 1105: ABG 7.34/42/73/22 6901-7795: SBT performed and passed on these settings [...] PCP: Magdalena Acosta MD PCP phone number: [phone] Date of Admission: 05/08/2023 ( Hospital Day [...] 1447 PHART -- 7.34* 7.34* -- -- [id number] -- 30* 30* -- -- PO2ART -- 72* 81* -- -- [id number] -- 16.0* 15.7* -- -- LACTATEVEN 2.4* 2.7* 2.7* 4.8* 2.9* VBG (Venous Blood Gas) Recent Labs 05/12/23 0700 05/12/23 0318 05/12/2310505/11/23193905/11/23 1447 LACTATEVEN 2.4* 2.7* 2.7* 4.8* 2.9* Mixed Venous Sat Recent Labs 05/12/23 0508 05/12/23 0321 05/12/23 0114 05/12/23 0030 [id number] 30.7 32.7 37.3 25.1 Objective: Vitals Last [...] who have questions please contact the health residential caregiver that requested your imaging first. Cardiac [...] who have questions please contact the health residential caregiver that requested your imaging first. Angiogram [...] who have questions please contact the health residential caregiver that requested your imaging first. Chest [...] who have questions please contact the health residential caregiver that requested your imaging first. Chest [...] who have questions please contact the health residential caregiver that requested your imaging first. Assessment [...] and inotrope. She is planned for a mmnwg-jh-txmdg TAVR this morning, which should hopefully improve [...] MD, FACP, FACC Section of Cardiovascular Medicine [facility] [employer] Managersilk screen layout drafter [facility] [...] ejection fraction Mild coronary artery disease by [facility] 11/09/2022 Heart failure with reduced ejection [...] 05/11/2023 4:11 PM EDT Reported off to ASSOCIATE BIOLOG[employer] SAL[employer] and pt transferred over in the bed for higher level of care. * Antelmo Sharma MD - 05/11/2023 9:45 AM EDT Images from the original note were not included. [facility] [place] [place] [id number] STRUCTURAL HEART DISEASE CONSULTATION NOTE PRIMARY CARE [...] who had been referred for possible TAVR gshdb-kt-zadaa evaluation. Her primary symptoms are of dyspnea [...] otherwise negative. Ms. Thacker is originally from [facility]. 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 [...] ejection fraction Mild coronary artery disease by [facility] 11/09/2022 Heart failure with reduced ejection [...] whole blood, send to lab ([facility]) Result Value Ref Range Lactate WB 3.1 (H) 0.5 - 2.2 mmol/L Heparin (unfractionated) Level Result Value Ref Range Heparin UFH Level 0.46 IU/mL Lactate, whole blood, send to lab ([facility]) Result Value Ref Range Lactate WB 1.8 0.5 - 2.2 mmol/L TTE 05/08/23 Interpretation Summary -Left ventricle is severely dilated (LVEDV index 81 mL/m2). Left ventricular systolic function is severely reduced. The left ventricular ejection fraction is 25% by Asmuel's biplane. There is apical and anteroseptal akinesis [...] leads Confirmed by MD Harshil, Enrique Bell ([id number]) on 05/10/2023 8:11:46 AM Cardiac Cath 11/09/2022 [...] to decompensating HFrEF, she was transferred to [facility] this afternoon for further management. TAVR CT imaging support for adequate ileofemoral access. Given her acute deterioration today, will planfor RTF TAVR on 05/12/2023. Brody Kaplan ANURAG Structural Heart Disease Pager [phone] Please see addendum by Dr. Sharma for [...] signed and dated. Antelmo Sharma MD Pager [phone] * Harini Lance MD - 05/11/2023 6:06 AM EDT Images from the original note were not included. Cardiology Progress Note Patient info: Name: Purnima Thacker : 1955 PCP: Magdalena Acosta MD PCP phone number: [phone] Date of Admission: 05/08/2023 ( Hospital Day [...] who have questions please contact the health residential caregiver that requested your imaging first. : [...] 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) Mild coronary artery disease by [facility] 11/09/2022 Hyperlipidemia, unspecified NICOLAS (obstructive sleep [...] PCP: Magdalena Acosta MD PCP phone number: [phone] Date of Admission: 05/08/2023 ( Hospital Day [...] 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) Mild coronary artery disease by [facility] 11/09/2022 Hyperlipidemia, unspecified NICOLAS (obstructive sleep [...] PCP: Magdalena Acosta MD PCP phone number: [phone] Date of Admission: 05/08/2023 ( Hospital Day [...] Gas) No results found for: PHART, PO2ART, GEZ7TAW, AZJ9KAH Microbiology: Microbiology Results (Last 30 days) No [...] Daily Healthy Menu Choices/Cardiac diet ([facility]) Lines: Peripheral IV Line - Single Lumen [...] 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) Mild coronary artery disease by [facility] 11/09/2022 Hyperlipidemia, unspecified NICOLAS (obstructive sleep [...] [facility] (WRVU 5.6) performed by Mario Alberto Escobedo MD at [facility] CATH LABS PRO AORTOPLAS FOR SUPRAVALV STEN N/A 09/21/2016 @AORTOPLASTY FOR SUPRAVALVULAR STENOSIS (WRVU 29.33) performed by Alirio Hudson MD at [facility] MAIN OR PRO REPLACEMENT PROSTHETIC AORTIC VALVE OPEN W CARDIOPULMONARY BYPASS HOMOGRF/STENT N/A 09/21/2016 @REPLACE AORTIC VALVE, OPEN, W\CPB, W\PROSTHETIC VALVE (WRVU 41.32) performed by Alirio Hudson MD at [facility] MAIN OR Social History and Habits: Social [...] Verio test strips Strip USE DAILY OneTouch [employer] Plus Lancet 33 gauge Misc USE DAILY [...] [facility] (WRVU 5.6) performed by Mario Alberto Escobedo MD at [facility] CATH LABS PRO AORTOPLAS FOR SUPRAVALV STEN N/A 09/21/2016 @AORTOPLASTY FOR SUPRAVALVULAR STENOSIS (WRVU 29.33) performed by Alirio Hudson MD at [facility] MAIN OR PRO REPLACEMENT PROSTHETIC AORTIC VALVE OPEN W CARDIOPULMONARY BYPASS HOMOGRF/STENT N/A 09/21/2016 @REPLACE AORTIC VALVE, OPEN, W\CPB, W\PROSTHETIC VALVE (WRVU 41.32) performed by Alirio Hudson MD at [facility] MAIN OR Social History and Habits: Social [...] days, which prompted her to present to [employer]. She also endorses some intermittent retrosternal chest pain with exertion.She endorses some dizziness with exertion, but has not gotten faint or passed out. At [employer] she was noted to be afebrile, blood pressure 105/64, HR 120s, satting 95% on 2L NC. Labs from [facility] are below, of note [...] 89/59, which prompted the transfer to us. [facility] labs: CBC - Hgb 10.5 CMP - Cr 1.1 BNP 99552 HsTrop 1358 Lactate 1.6 D-dimer 1183 Interval [...] Code Status: Attempt Cardiopulmonary Resuscitation - Inpatient [facility] Roman Reid MD Internal Medicine PGY-1 Pager [phone], M1-S1 Service Associated attestation - Juan Luis Gonzalez MD - 05/08/2023 10:00 PM EDT Cardiology Attending Addendum Active Hospital Problems Diagnosis Symptomatic severe aortic stenosis with low ejection fraction Heart failure with reduced ejection fraction due to heart valve disease Mild coronary artery disease by [facility] 11/09/2022 Hyperlipidemia, unspecified History of aortic [...] PCP: Magdalena Acosta MD PCP phone number: [phone] Date of Admission: 05/08/2023 ( Hospital Day 0 days ) Attending:Enrique Chua MD ID: Purnima Thacker is a 67 y.o. female w/ PMH of s/p bioprosthetic AVR in 2016 with recent concern for severe restenosis, HTN, HLD, mixed connective tissue disease, who presents in transfer from [facility] with worsening BONILLA and [...] four days, which promptedher to present to [employer]. She also endorses some intermittent retrosternal chest pain with exertion. She endorses some dizziness with exertion, but has not gotten faint or passed out. At [employer] [facility] she was noted to be afebrile, blood pressure 105/64, HR 120s, satting 95% on 2L NC. Labs from [facility] are below, of note [...] 89/59, which prompted the transfer to us. [facility] labs: CBC - Hgb 10.5 CMP - Cr 1.1 BNP 17402 HsTrop 1358 Lactate 1.6 D-dimer 1183 Vasoactive [...] tissue disease, who [facility] B[facility] and weight [...] Daily Healthy Menu Choices/Cardiac diet ([facility]) DVT Prophylaxis: heparin gtt GI Prophylaxis: none [...] remains HD stable, can transfer out of [facility]. -Structural Heart consult; will need inpatient [...] to the planned procedure. Hand Hygiene: The gas appliance servicer did perform hand hygiene prior to arterial [...] Successful arterial line placement. Crispin Timmons MD Residential Support Specialist Associated attestation - Onelia Schwartz MD - [...] (flow was non-pulsatile) and appearance of blood. Juliette-Marily catheter was placed and locked at 55 [...] information for follow-up [facility], [facility] [address] [place] [address] Cardiac Rehab, [facility] [address] [place] [address] [facility] [address] [place] [address] Transportation: family or friend will provide *Brother Ryamond on Tuesday 05/22 at 1000 Functional status [...] Type: *No Product type* / Secondary Insurance: [employer] [place] Prescription Coverage: Yes This plan was formulated with input from patient, family (please identify family/friend involved ifapplicable) and team. All are in agreement with plan. Aliza Martino MSN-Ed, RN ACM electronic game developer Office of Care Management Pager #[phone] * Plan of Care - Favian Mckeon [...] Chaudhary RN - 05/21/2023 4:46 PM EDTSummary: [facility] referral OFFICE OF CARE MANAGEMENT [...] Type: *No Product type* / Secondary Insurance: [employer] [place] Last Physical Therapy Recommendation: (Home with assist from Brother; Friend arriving Tues) with walker, front wheeled Last Occupational Therapy Recommendation: swing bed rehabilitation facility, nursing home facility (vs home with support for IADLs) with walker, front wheeled, shower chair Plan for discharge is: Home w/ Services Outpatient Agency/Support Group Needs: Homecare agency Home Health Services: Physical Therapy, Occupational Therapy Agency Referrals: I have met with the patient to: discuss discharge planning needs. describing our affiliations within the [facility] and educate about their right to choose where referrals are sent. provide a list of Home Health Agencies / Durable Medical Equipment vendors which serve their preferred geographic area. They have requested referrals to: [facility] [address] [place] [address] Ortho Care Located @ [place], [place] Note routed to a Flight Follower who will communicate referrals to facilities and provide any required information. Transportation: family or friend will provide *Brother Raymond on Tuesday 05/22 at 1000 Barriers to discharge: Does not have home 22/02 assist available until tomorrow Tuesday 05/22 Plan going forward: Discharge home into the 22/02 home care of brother Raymond with [facility] and [facility] PT/OT services on Tuesday 05/22 [...] Attending: All Staff: Staff Role Juanita Almaguer Broom Worker Laure Ricks PA Physician Aquarist Magdalena Rodriguez dsp engineer Nurse Consuelo Espinoza, dsp engineer Nurse Post-operative diagnosis/Indication: Right pleural effusion [...] Type: *No Product type* / Secondary Insurance: [employer] [facility] Last Physical Therapy Recommendation: nursing home facility, swing bed rehabilitation facility with [...] discharge planning needs. provide the [facility], Office of Care Management letter from the Mild Disabilities Teacher pertaining to rehab referrals. provide a letter describing our affiliations within the [facility] and educate about their right to choose where referrals are sent. provide the CMS Star Quality Rating handout. review the different levels of rehab including SNF, swing, and acute. provide a list of facilities within their preferred geographic area. request that they provide at least three choices for referral. They have requested referrals to: [facility] [address] [place] [address] [facility]) [address] [place] [address] (Accepts pts only after exhausting all other local SNF options) [facility] ([facility]) ([facility]) [address] [place] [address] PHONE: [phone] FAX: [phone] Simin Benavides [facility] ([facility]) [facility]) [address] [place] [address] PHONE: [phone] FAX: [phone] Note routed to a Flight Follower who will communicate referrals to facilities and [...] - 05/17/2023 10:25 AM EDT [facility] Purnima Thacker was seen today regarding participation in the outpatient Phase 2 Cardiac Rehabilitation at [facility]. The patient agrees to [...] from the original note were not included. [facility]YPERTENSION CONSULT NOTE PATIENT: Purnima Thacker [...] in her course. She ultimately underwent a jskcj-lr-ztarb procedure on and tolerated it well (see [...] 1423 05/12/23 1105 PHART 7.39 7.37 7.34* AAF5CHC 33* 36 42 PO2ART 101 102 73* RZV5CRN 19.5* 20.4 22.1 LACTATEVEN 1.5 1.8 2.8* TFP0JAE 40 40 40 PFRATIOART2 252 255 182 VBG (Venous Blood Gas) Recent Labs 05/12/23 1557 05/12/23 1423 05/12/23 1105 LACTATEVEN 1.5 1.8 2.8* Mixed Venous Sat Recent Labs 05/12/23 1425 05/12/23 0508 05/12/23 0321 V0RANG0 59.9 30.7 32.7 LFT's: Recent Labs 05/14/23 0110 05/13/23 0115 05/12/23 0600 BILITOT 0.4 0.5 0.9 BILIDIR -- 0.3 -- ALBUMIN 3.6 3.0* 3.5 ALKPHOS 86 85 100 ALT 437* 903* 1,174* AST 319* 792* 1,435* No results found for: UPROTCREAT No results found for: TPROTEINPEP, ALBELECT No results found for: MICROALBUR, VNSW79OAY No results found for: HA1C Lab Results Component Value Date CALCIUM 8.5 05/14/2023 PHOS 4.7 (H) 05/08/2023 No results found for: 25OHVITD MICROBIOLOGY: ProcedureComponentValueUnitsDate/TimeUrine culture [[id number]]Collected: 05/11/231921Lab Status: Final resultSpecimen: Clean Catch UrineUpdated: [...] consulted for assessment if this patient needs MARKETING ANALYTICS SPECIALIST. Atthis time, we can likely hold off on MARKETING ANALYTICS SPECIALIST. Her volume status appears sufficient and her metabolic kanwal angements with mild acidosis is not too profound. Patient does not have significant uremic symptoms. We can hold off for today, but the patient is a high risk candidate for needing MARKETING ANALYTICS SPECIALIST in future daysespecially if her Cr curve trends the direction it is for the next several days. S/p Gizor-ik-Aynff TF TAVR: Management per cardiology. On milrinone gtt. PLAN: - Please obtain following diagnostics: renal US, urinalysis, urine prot/Cr ratio, urine albumin/Cr ratio, CK, uric acid, serum osmol, daily VBGs - No acute indications for MARKETING ANALYTICS SPECIALIST/dialysis. We will keep close eye on Cr trend, volume status, and metabolics to ensure patient still does not need MARKETING ANALYTICS SPECIALIST as she ensues intrinsic renal recovery - [...] M.H.A., M.A. PGY-V Nephrology-Hypertension Fellow Page # [phone] [facility] [address] 2nd floor, Ebd Teacher [address] [place] [address] * Care Management - Mario Alberto Olmos [...] Type: *No Product type* / Secondary Insurance: [facility] Plan for discharge is: Home w/o [...] for a TAVR at 730. Returned to [facility] at 0945. Was intubated in the laborer wharf due to agitation. Maintained bedrest for 5 [...] Operative Note Patient Name: Purnima Thacker : [id number] MR#: [id number] Case Date: 05/12/2023 Surgeon: Surgeon(s) and Role: [...] procedure Note: Patient Name: Purnima Thacker : [id number] MR#: [id number] Case Date: 05/12/2023 Operators Surgeon: Surgeon(s) and [...] main with 4.0 x 30 mm Resolute Alden Drug Eluting Stent Perclose x1 + Angio-seal 8 Fr x1, RFA Manual pressure, LFA Manual pressure, LFV Endotracheal intubation (performed by cardiac anesthesia) Preliminary findings: Successful right transfemoral TAVR Ymmyr-jk-Nqbel with a 23 mm Lai 3 THV. [...] MD, M.Sc. Structural Heart Disease Fellow Pager :[phone] Antelmo Sharma MD Pager [phone] * Op Note - Alirio Hudson MD - 05/12/2023 7:37 AM EDT Preop Diagnosis: Severe aortic stenosis, symptomatic. Postop Diagnosis: Same. Procedure: Transfemoral TAVR procedure with 23mm valve. Surgeon: Alirio Hudson M.D. Fleet Sales Manager: Danny CULP Procedure: The patient was taken to the laborer wharf. The patient had monitored anesthesia care. 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 [facility] [place] [address] STRUCTURAL HEART DISEASE CONSULTATION NOTE PRIMARY CARE [...] who had been referred for possible TAVR aprqa-sn-orgtb evaluation. Her primary symptoms are of dyspnea [...] otherwise negative. Ms. Thacker is originally from [facility]. 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 PROBLEM LIST: Patient Active Problem List Diagnosis Symptomatic severe aortic stenosis with low ejection fraction Mild coronary artery disease by [facility] 11/09/2022 Heart failure with reduced ejection [...] 3 mg 0.3 mL Subcutaneous Once PRN Klauida Reid MD acetaminophen (Tylenol) tablet 650 mg [...] whole blood, send to lab ([facility]) Result Value Ref Range Lactate [...] leads Confirmed by MD Harshil, Enrique Bell ([id number]) on 05/10/2023 8:11:46 AM Assessment and Plan: [...] Antelmo Sharma MD Structural Heart Disease Pager [phone] * Plan of Care - Sarahi Nice RN - 05/10/2023 3:55 AM EDTSumavis: VALDO Note and Care Plan Sarahi Nice RN assumed care of pt at time of their arrival to room 362 from [facility]. Pt voices shortness of breath [...] Transfer from another hospital Location: admitted from [facility] Reason for Hospitalization: Critical aortic stenosis, causing symptoms Past medical History: Past Medical History: Diagnosis Date Anemia Hospitalizations Within the Past 30 Days: no previous admission in last 30 days Current Decision-Making Capacity: Self If AD's have not been completed the following surrogate would be surrogate decision maker per [place] surrogate decision making law. (Only good for 180 days) Any patient receiving care in [place] must abide by [place] law. The hierarchy for surrogate decision making [...] (i) The agent with financial power of ip attorney or a conservator appointed in accordance [...] Current DME: none Home Address confirmed as: [address] [place] [id number] Social & Family Supports: All names listed [...] Type: *No Product type* / Secondary Insurance: [facility] [place] ONLY if patient has Medicare A&B - Does this patient have secondary insurance?: Yes ; Prescription Coverage: Yes Preferred Pharmacy: updated to [facility] Status: Patient is a : No Primary Care Provider confirmed: Magdalena Acosta MD [phone] Patient/Caregiver Goals of Treatment: Potential Needs for [...] of a 2 story home with 2 [facility]. Patient is independent with ADL's at baseline [...] of care planning. Alie Bradshaw RN, CM Pager-[phone] * Plan of Care - Emily Lucero RN - 05/08/2023 2:54 PM EDT OUTCOME EVALUATION NOTE: OUTCOME SUMMARY: Pt arrived from [facility]. A&O, no c/o pain [...] 4:15 PM EDT Office Visit D[facility]ology at [facility] [address] [place] [id number] Marek Bonilla MD [address], [place] [address] Scheduled Referrals Name Type Priority Associated Diagnoses [...] Heart Cath W/Inj L Ventriculography, Img S&I ([id number]) 05/12/2023 7:37 AM EDT Aortic valve stenosis, [...] EST Narrative 07/08/2023 12:26 PM EST [address] [place] [address] ? Echocardiogram Report Name: PURNIMA THACKER ?Study Date: 07/08/2023 10:31 AMBP: 118/60 mmHg ? [facility] 1955 ? Height: 155 cm ? Account: [id number] Age: 67 yrs ? Weight: 74 kg [...] no significant change (post-procedure). Procedure Limited - 13269. Doppler - 92171. Color Doppler - 25871. Satisfactory quality. This study is limited because [...] Note Lee Kincaid MD - 07/08/2023 [address] [place] [address] Echocardiogram Report Name: LASHELL THACKERDARWIN Mejias Study Date: 0:31 AMBP: 118/60 mmHg Patient Location: : 1955 Height: 155 cm Account: [id number] Age: 67 yrs Weight: 74 kg Gender: [...] is nosignificant change (post-procedure). Procedure Limited - 08175. Doppler - 88536. Color Doppler - 05932. Satisfactoryquality. This study is limited because of [...] EST) Glucose 93 65 - 199 mg/dL [facility] Comment:Diabetes: >=200 mg/d L plus symptoms Blood Urea Nitrogen 19(H) 8 - 18 mg/dL [facility] Creatinine 0.81 0.70 - 1.20 mg/dL [facility] Sodium 142 135 - 145 mmol/L [facility] Potassium 3.8 3.5 - 5.0 mmol/L [facility] Comment: Please note: ??Patients with WBC >100,000 may have falsely elevated Potassium levels. ??For accurate Potassium quantification in these patients send serum separator tube (gold top) for subsequent determinations. ??Contact the Clinical Chemistry Laboratory if there are any questions. Chloride 104 98 - 107 mmol/L [facility] Carbon Dioxide 26 22 - 31 mmol/L [facility] Anion Gap 12 5 - 15 mmol/L [facility] Calcium 10.2 8.5 - 10.5 mg/dL [facility] Protein, Total 7.4 6.1 - 8.0 g/dL [facility] Albumin 4.1 3.2 - 5.2 g/dL [facility] Aspartate Aminotransferase 24 0 - 30 unit/L [facility] Alanine Aminotransferase 12 0 - 30 unit/L [facility] Alkaline Phosphatase 93 35 - 105 unit/L [facility] Bilirubin, Total 0.3 0.2 - 1.3 mg/dL [facility] Est Glomerular Filtration Rate 80 >=60 mL/min/1. 73 m?? [facility] Comment: This patient's estimated [...] Lab Alirio Hudson MD CHEMISTRY ORDERABLE S [facility] [place] [address] * (ABNORMAL) Basic Metabolic Panel (non-fasting) (05/22/2023 3:57 AM EDT) Glucose 88 65 - 199 mg/dL [facility] Comment:Diabetes: >=200 mg/d L plus symptoms Blood Urea Nitrogen 21(H) 8 - 18 mg/dL [facility] Creatinine 0.69(L) 0.70 - 1.20 mg/dL [facility] Sodium 136 135 - 145 mmol/L [facility] Potassium 3.6 3.5 - 5.0 mmol/L [facility] Comment: Please note: ??Patients with WBC >100,000 may have falsely elevated Potassium levels. ??For accurate Potassium quantification in these patients send serum separator tube (gold top) for subsequent determinations. ??Contact the Clinical Chemistry Laboratory if there are any questions. Chloride 102 98 - 107 mmol/L [facility] Carbon Dioxide 23 22 - 31 mmol/L [facility] Anion Gap 11 5 - 15 mmol/L [facility] Calcium 8.6 8.5 - 10.5 mg/dL [facility] Est Glomerular Filtration Rate 95 >=60 mL/min/1. 73 m?? [facility] Comment: This patient's estimated [...] Lab Mara Serrano ANURAG CHEMISTRY ORDERABL ES [facility] [place] [address] * (ABNORMAL) Basic Metabolic Panel (non-fasting) (05/21/2023 5:06 AM EDT) Glucose 87 65 - 199 mg/dL [facility] Comment:Diabetes: >=200 mg/d L plus symptoms Blood Urea Nitrogen 25(H) 8 - 18 mg/dL [facility] Creatinine 0.84 0.70 - 1.20 mg/dL [facility] Sodium 136 135 - 145 mmol/L [facility] Potassium 3.6 3.5 - 5.0 mmol/L [facility] Comment: Please note: ??Patients with WBC >100,000 may have falsely elevated Potassium levels. ??For accurate Potassium quantification in these patients send serum separator tube (gold top) for subsequent determinations. ??Contact the Clinical Chemistry Laboratory if there are any questions. Chloride 102 98 - 107 mmol/L [facility] Carbon Dioxide 26 22 - 31 mmol/L [facility] Anion Gap 8 5 - 15 mmol/L [facility] Calcium 8.9 8.5 - 10.5 mg/dL [facility] Est Glomerular Filtration Rate 76 >=60 mL/min/1. 73 m?? [facility] Comment: This patient's estimated [...] Narrative Resulting Agency Comment Spec In Lab [facility] TELEMARKETER SUPERVISOR CHEMISTRY ORDERABL ES Performing Organization Address City/[facility]/ZIP Co de Phone Number [facility] [place] [address] * Lavender Tube HOLD (05/20/2023 2:52 AM EDT) Lavender Hold Sample in lab. [facility] Blood Venous Draw / Unknown 05/20/2023 2:52 AM EDT 05/20/2023 3:04 AM EDT [facility] TELEMARKETER SUPERVISOR HEMATOLOGY ORDERAB LES Performing Organization Address City/[facility]/ZIP Co de Phone Number [facility] [place] [address] * (ABNORMAL) Basic Metabolic Panel (non-fasting) (05/20/2023 2:52 AM EDT) Glucose 152 65 - 199 mg/dL [facility] Comment:Diabetes: >=200 mg/d L plus symptoms Blood Urea Nitrogen 33(H) 8 - 18 mg/dL [facility] Creatinine 0.82 0.70 - 1.20 mg/dL [facility] Sodium 137 135 - 145 mmol/L [facility] Potassium 3.7 3.5 - 5.0 mmol/L [facility] Comment: Please note: ??Patients with WBC >100,000 may have falsely elevated Potassium levels. ??For accurate Potassium quantification in these patients send serum separator tube (gold top) for subsequent determinations. ??Contact the Clinical Chemistry Laboratory if there are any questions. Chloride 99 98 - 107 mmol/L [facility] Carbon Dioxide 22 22 - 31 mmol/L [facility] Anion Gap 16(H) 5 - 15 mmol/L [facility] Calcium 9.0 8.5 - 10.5 mg/dL [facility] Est Glomerular Filtration Rate 78 >=60 mL/min/1. 73 m?? [facility] Comment: This patient's estimated [...] Agency Comment Spec In Lab Mara Thomasfield TELEMARKETER SUPERVISOR CHEMISTRY ORDERABL ES Performing Organization Address [facility] Co de Phone Number [facility] [place] [address] * (ABNORMAL) Potassium (05/20/2023 2:52 AM EDT) [facility] Potassium 3.4(L) 3.5 - 5.0 mmol/L [facility] Comment: Please note: ??Patients with WBC >100,000 may have falsely elevated Potassium levels. ??For accurate Potassium quantification in these patients send serum separator tube (gold top) for subsequent determinations. ??Contact the Clinical Chemistry Laboratory if there are any questions. Blood 05/20/2023 2:52 AM EDT 05/20/2023 3:03 AM EDT Narrative Resulting Agency Comment Spec In Lab Mara Thomasfield TELEMARKETER SUPERVISOR CHEMISTRY ORDERABL ES Performing Organization Address [facility] de Phone Number [facility] [place] [address] * XR Chest PA & Lateral (Generic) [...] who have questions please contact the health residential caregiver that requested your imaging first. ? [...] patients who have questions please contactthe health residential caregiver that requested your imaging first. Alirio Hudson MD IMG DX ORDERABLES * (ABNORMAL) Basic Metabolic Panel (non-fasting) (05/19/2023 5:49 AM EDT) Glucose 93 65 - 199 mg/dL [facility] Comment:Diabetes: >=200 mg/d L plus symptoms Blood Urea Nitrogen 45(H) 8 - 18 mg/dL [facility] Creatinine 1.02 0.70 - 1.20 mg/dL [facility] Sodium 138 135 - 145 mmol/L [facility] Potassium 3.9 3.5 - 5.0 mmol/L [facility] Comment: Please note: ??Patients with WBC >100,000 may have falsely elevated Potassium levels. ??For accurate Potassium quantification in these patients send serum separator tube (gold top) for subsequent determinations. ??Contact the Clinical Chemistry Laboratory if there are any questions. Chloride 102 98 - 107 mmol/L [facility] Carbon Dioxide 26 22 - 31 mmol/L [facility] Anion Gap 10 5 - 15 mmol/L [facility] Calcium 9.7 8.5 - 10.5 mg/dL [facility] Est Glomerular Filtration Rate 60 >=60 mL/min/1. 73 m?? [facility] Comment: This patient's estimated [...] Agency Comment Spec In Lab Mara Serrano TELEMARKETER SUPERVISOR [place] [address] * IR Chest Tube Placement Right (05/18/2023 [...] EDT) Glucose 95 65 - 199 mg/dL [facility] Comment:Diabetes: >=200 mg/d L plus symptoms Blood Urea Nitrogen 71(H) 8 - 18 mg/dL [facility] Comment:result rechecked-JSJ Creatinine 1.64(H) 0.70 - 1.20 mg/dL [facility] Comment:result rechecked-JSJ Sodium 137 135 - 145 mmol/L [facility] Potassium 3.7 3.5 - 5.0 mmol/L [facility] Comment: Please note: ??Patients with WBC >100,000 may have falsely elevated Potassium levels. ??For accurate Potassium quantification in these patients send serum separator tube (gold top) for subsequent determinations. ??Contact the Clinical Chemistry Laboratory if there are any questions. Chloride 100 98 - 107 mmol/L [facility] Carbon Dioxide 24 22 - 31 mmol/L [facility] Anion Gap 13 5 - 15 mmol/L [facility] Calcium 9.7 8.5 - 10.5 mg/dL [facility] Est Glomerular Filtration Rate 34(L) >=60 mL/min/1. 73 m?? [facility] Comment: This patient's estimated [...] Agency Comment Spec In Lab Mara Serrano TELEMARKETER SUPERVISOR CHEMISTRY ORDERABL ES [facility] [place] [address] * XR Chest PA & Lateral (Generic) [...] who have questions please contact the health residential caregiver that requested your imaging first. ? [...] patients who have questions please contactthe health residential caregiver that requested your imaging first. Alirio Hudson MD IMG DX ORDERABLES * (ABNORMAL) Comprehensive metabolic panel (non-fasting) (05/17/2023 4:35 AM EDT) Glucose 89 65 - 199 mg/dL [facility] Comment:Diabetes: >=200 mg/d L plus symptoms Blood Urea Nitrogen 97(H) 8 - 18 mg/dL [facility] Creatinine 2.97(H) 0.70 - 1.20 mg/dL [facility] Comment:result rechecked-JSJ Sodium 135 135 - 145 mmol/L [facility] Potassium 4.1 3.5 - 5.0 mmol/L [facility] Comment: Please note: ??Patients with WBC >100,000 may have falsely elevated Potassium levels. ??For accurate Potassium quantification in these patients send serum separator tube (gold top) for subsequent determinations. ??Contact the Clinical Chemistry Laboratory if there are any questions. Chloride 97(L) 98 - 107 mmol/L [facility] Carbon Dioxide 22 22 - 31 mmol/L [facility] Anion Gap 16(H) 5 - 15 mmol/L [facility] Calcium 9.6 8.5 - 10.5 mg/dL [facility] Protein, Total 6.5 6.1 - 8.0 g/dL [facility] Albumin 3.7 3.2 - 5.2 g/dL [facility] Aspartate Aminotransferase 58(H) 0 - 30 unit/L [facility] Alanine Aminotransferase 66(H) 0 - 30 unit/L [facility] Alkaline Phosphatase 86 35 - 105 unit/L [facility] Bilirubin, Total 0.6 0.2 - 1.3 mg/dL [facility] Est Glomerular Filtration Rate 17(L) >=60 mL/min/1. 73 m?? [facility] Comment: This patient's estimated [...] [facility] Co de Phone Number [facility] [place] [address] * Potassium (05/16/2023 11:15 PM EDT) Potassium 3.7 3.5 - 5.0 mmol/L [facility] Comment: Please note: ??Patients [...] MD CHEMISTRY ORDERABLE S Performing Organization Address City/[facility]/ZIP Co de Phone Number [facility] [place] [address] * Magnesium (05/16/2023 5:22 PM EDT) Magnesium 0.96 0.69 - 1.07 mmol/L [facility] Blood 05/16/2023 5:22 PM EDT 05/16/2023 5:27 PM EDT Narrative Resulting Agency Comment Spec In Lab Alirio Hudson MD CHEMISTRY ORDERABLE S Performing Organization Address [facility] Co de Phone Number [facility] [place] [address] * (ABNORMAL) Basic Metabolic Panel (non-fasting) (05/16/2023 5:22 PM EDT) Glucose 106 65 - 199 mg/dL [facility] Comment:Diabetes: >=200 mg/d L plus symptoms Blood Urea Nitrogen 103(H) 8 - 18 mg/dL [facility] Creatinine 3.91(H) 0.70 - 1.20 mg/dL [facility] Comment:result rechecked-imm Sodium 132(L) 135 - 145 mmol/L [facility] Potassium 3.6 3.5 - 5.0 mmol/L [facility] Comment: Please note: ??Patients with WBC >100,000 may have falsely elevated Potassium levels. ??For accurate Potassium quantification in these patients send serum separator tube (gold top) for subsequent determinations. ??Contact the Clinical Chemistry Laboratory if there are any questions. Chloride 92(L) 98 - 107 mmol/L [facility] Carbon Dioxide 22 22 - 31 mmol/L [facility] Anion Gap 18(H) 5 - 15 mmol/L [facility] Calcium 9.7 8.5 - 10.5 mg/dL [facility] Est Glomerular Filtration Rate 12(L) >=60 mL/min/1. 73 m?? [facility] Comment: This patient's estimated GFR [...] MD CHEMISTRY ORDERABLE S Performing Organization Address [facility] Co de Phone Number [facility] [place] [address] * (ABNORMAL) Potassium (05/16/2023 11:43 AM EDT) Potassium 3.3(L) 3.5 - 5.0 mmol/L [facility] Comment: Please note: ??Patients [...] MD CHEMISTRY ORDERABLE S Performing Organization Address [facility] Co de Phone Number [facility] [place] [address] * (ABNORMAL) Ferritin (05/16/2023 4:41 AM EDT) Ferritin 1,813(H) 30 - 400 ng/mL [facility] Comment: Pediatric reference ranges not [place] [facility] [place] interpret with caution. Reference ranges for females greater than 50 years of age approach values for men, i.e., 30-400 ng/mL. Blood 05/16/2023 4:41 AM EDT 05/16/2023 4:54 AM EDT Narrative Resulting Agency Comment Spec In Lab Kristopher Ayoub MD CHEMISTRY ORDERABLES Performing Organization Address City/[facility]/ZIP Co de Phone Number [facility] [place] [address] * (ABNORMAL) PTH (05/16/2023 4:41 AM EDT) Parathyroid Hormone 120(H) 15 - 65 pg/mL [facility] Blood 05/16/2023 4:41 AM EDT 05/16/2023 4:54 AM EDT Narrative Resulting Agency Comment Spec In Lab Kristopher Ayoub MD CHEMISTRY ORDERABLES Performing Organization Address [facility] Co de Phone Number [facility] [place] [address] * Vitamin D, 25-Hydroxy (05/16/2023 4:41 AM EDT) Vitamin D Total 25 OH 33 21 - 100 ng/mL [facility] Vit D Interp Sufficient [facility] Blood 05/16/2023 4:41 AM EDT 05/16/2023 4:54 AM EDT Narrative Resulting Agency Comment Spec In Lab Kristopher Ayoub MD CHEMISTRY ORDERABLES Performing Organization Address City/[facility] Co de Phone Number [facility] [place] [address] * (ABNORMAL) Blood Gas Venous ([facility]) (05/16/2023 4:22 AM EDT) pH, Venous 7.41 7.32 - 7.42 [facility] PCO2, Venous 32(L) 41 - 51 mmHg [facility] PO2, Venous 73(H) 25 - 40 mmHg [facility] Bicarbonate, Venous 19.6 mmol/L [facility] Base Excess, Venous -5.1 mmol/L [facility] Hgb Blood Gas 9.7(L) 11.7 - 15.5 g/dL [facility] Oxyhemoglobin, Venous 92.8 % [facility] Carboxyhemoglob in, Venous 0.1 % [facility] Comment: Nonsmokers: 0.5-1.5% COHB Smokers: Variable, but usually less than 10% Toxic: 20-30% COHB Lethal: Greater than 60% COHB Methemoglobin, Venous 0.3 <=1.5 % [facility] Na Whole Blood 130(L) 135 - 145 mmol/L [facility] K Whole Blood 3.7 3.5 - 5.0 mmol/L [facility] Comment: Please note: Patients with WBC >100,000 may have falsely elevated Potassium levels. Contact the Clinical Chemistry Laboratory if there are any questions. ICa Whole Blood 1.15 1.15 - 1.33 mmol/L [facility] Comment: Note: ??Total bilirubin higher than 20 mg/dL may lead to falsely low ionized calcium. CL Whole Blood 95(L) 98 - 107 mmol/L [facility] Gluc Whole Bld 82 65 - 199 mg/dL [facility] Comment:Diabetes: >=200 mg/d L plus symptoms Lactate WB 1.1 0.5 - 2.2 mmol/L [facility] Blood Gas Source Venous [facility] Blood Venous Draw / Unknown 05/16/2023 4:22 AM EDT 05/16/2023 4:31 AM EDT Narrative Resulting Agency Comment Spec In Lab Bonita TOBAR CHEMISTRY ORDERABLES [facility] [place] [address] * (ABNORMAL) Differential, Automated (05/16/2023 4:20 AM EDT) Neutrophil % 84.1 % [facility] Neutrophil Absolute 6.22(H) 1.70 - 6.10 x10(3)/mc L [facility] Lymph % 5.8 % [facility] Lymphocytes Abs 0.4(L) 0.9 - 3.2 x10(3)/mc L [facility] Monocyte % 8.8 % [facility] Monocyte Abs 0.6 0.3 - 0.9 x10(3)/mc L [facility] Eos % 0.4 % [facility] Eosinophils Abs 0.0 0.0 - 0.4 x10(3)/mc L [facility] Basophil % 0.0 % [facility] Baso Absolute 0.0 0.0 - 0.1 x10(3)/mc L [facility] Immature Gran % 0.90 % [facility] Comment: Immature granulocytes(IG's)percentage and absolute count will include metamyelocytes, myelocytes, and promyelocytes. Blood smears from CBCs yielding IG's will be scanned manually for concordance. If this scan disagrees with the automated IG or if promyelocytes are noted, a manual differential will be performed. Immature Gran Absolute 0.07(H) 0.00 - 0.04 x10(3)/mc L [facility] Blood 05/16/2023 4:20 AM EDT 05/16/2023 4:29 AM EDT Narrative Resulting Agency Comment Spec In Lab James Agustin MD HEMATOLOGY ORDER JODIE Performing Organization Address City/State/[facility] Co de Phone Number [facility] [place] [address] * (ABNORMAL) Hemogram (05/16/2023 4:20 AM EDT) White Blood Cell 7.4 4.0 - 9.5 x10(3)/mc L [facility] Red Blood Cell 2.40(L) 4.00 - 5.21 x10(6)/mc L [facility] Hemoglobin 7.8(L) 11.7 - 15.5 g/dL [facility] Hematocrit 22.5(L) 35.7 - 45.8 % [facility] Mean Cell Volume 93.8 82.6 - 94.4 fL [facility] Mean Cell Hemoglobin 32.5(H) 27.1 - 32.0 pg [facility] Mean Cell Hemoglobin Concentration 34.7 31.7 - 35.0 g/dL [facility] Platelet 120(L) 145 - 357 x10(3)/mc L [facility] RDW Standard Deviation 42.9 37.0 - 46.0 fL [facility] RDW coefficient of variation 12.9 11.5 - 14.1 % [facility] Mean Platelet Volume 11.3 7.6 - 12.9 fL [facility] NRBC% auto 0.7 % [facility] NRBC Absolute 0.050(H) 0.000 - 0.000 x10(3)/mc L [facility] Blood 05/16/2023 4:20 AM EDT 05/16/2023 4:29 AM EDT Narrative Resulting Agency Comment Spec In Lab James Agustin MD HEMATOLOGY ORDER JODIE [facility] [place] [address] * (ABNORMAL) Basic Metabolic Panel (non-fasting) (05/16/2023 4:20 AM EDT) Glucose 89 65 - 199 mg/dL [facility] Comment:Diabetes: >=200 mg/d L plus symptoms Blood Urea Nitrogen 108(H) 8 - 18 mg/dL [facility] Creatinine 4.74(H) 0.70 - 1.20 mg/dL [facility] Comment:result rechecked-OLIVA Sodium 132(L) 135 - 145 mmol/L [facility] Potassium 3.9 3.5 - 5.0 mmol/L [facility] Comment: Please note: ??Patients with WBC >100,000 may have falsely elevated Potassium levels. ??For accurate Potassium quantification in these patients send serum separator tube (gold top) for subsequent determinations. ??Contact the Clinical Chemistry Laboratory if there are any questions. Chloride 95(L) 98 - 107 mmol/L [facility] Carbon Dioxide 18(L) 22 - 31 mmol/L [facility] Anion Gap 19(H) 5 - 15 mmol/L [facility] Calcium 9.2 8.5 - 10.5 mg/dL [facility] Est Glomerular Filtration Rate 10(L) >=60 mL/min/1. 73 m?? [facility] Comment: This patient's estimated [...] MD CHEMISTRY ORDERABLE S Performing Organization Address [facility] Co de Phone Number [facility] [place] [address] * (ABNORMAL) Iron and TIBC (05/16/2023 4:20 AM EDT) Iron 31 30 - 150 mcg/dL [facility] TIBC 259 250 - 450 mcg/dL [facility] Iron Saturation 12(L) 20 - 50 % [facility] Blood 05/16/2023 4:20 AM EDT 05/16/2023 4:29 AM EDT Narrative Resulting Agency Comment Spec In Lab Kristopher Ayoub MD CHEMISTRY ORDERABLES Performing Organization Address [facility] Co de Phone Number [facility] [place] [address] * (ABNORMAL) Basic Metabolic Panel (non-fasting) (05/15/2023 12:50 AM EDT) Glucose 101 65 - 199 mg/dL [facility] Comment:Diabetes: >=200 mg/d L plus symptoms Blood Urea Nitrogen 109(H) 8 - 18 mg/dL [facility] Creatinine 5.62(H) 0.70 - 1.20 mg/dL [facility] Comment:result rechecked-KS Sodium 131(L) 135 - 145 mmol/L [facility] Comment:result rechecked-KS Potassium 3.7 3.5 - 5.0 mmol/L [facility] Comment: result rechecked-KS Please note: ??Patients with WBC >100,000 may have falsely elevated Potassium levels. ??For accurate Potassium quantification in these patients send serum separator tube (gold top) for subsequent determinations. ??Contact the Clinical Chemistry Laboratory if there are any questions. Chloride 92(L) 98 - 107 mmol/L [facility] Comment:result rechecked-KS Carbon Dioxide 18(L) 22 - 31 mmol/L [facility] Comment:result rechecked-KS Anion Gap 21(H) 5 - 15 mmol/L [facility] Calcium 8.9 8.5 - 10.5 mg/dL [facility] Est Glomerular Filtration Rate 8(L) >=60 mL/min/1. 73 m?? [facility] Comment: This patient's estimated [...] [facility] Co de Phone Number [facility] [place] [address] * (ABNORMAL) Hemogram (05/15/2023 12:50 AM EDT) White Blood Cell 9.1 4.0 - 9.5 x10(3)/mc L [facility] Red Blood Cell 2.19(L) 4.00 - 5.21 x10(6)/mc L [facility] Hemoglobin 7.2(L) 11.7 - 15.5 g/dL [facility] Hematocrit 20.6(L) 35.7 - 45.8 % [facility] Mean Cell Volume 94.1 82.6 - 94.4 fL [facility] Mean Cell Hemoglobin 32.9(H) 27.1 - 32.0 pg [facility] Mean Cell Hemoglobin Concentration 35.0 31.7 - 35.0 g/dL [facility] Platelet 109(L) 145 - 357 x10(3)/mc L [facility] RDW Standard Deviation 43.6 37.0 - 46.0 fL [facility] RDW coefficient of variation 12.9 11.5 - 14.1 % [facility] Mean Platelet Volume 10.4 7.6 - 12.9 fL [facility] NRBC% auto 2.1 % [facility] NRBC Absolute 0.190(H) 0.000 - 0.000 x10(3)/mc L [facility] Blood 05/15/2023 12:5 0 AM EDT 05/15/2023 12:52 AM EDT Narrative Resulting Agency Comment Spec In Lab Alirio Hudson MD HEMATOLOGY ORDERABL ES Performing Organization Address City/State/[facility] Co de Phone Number [facility] [place] [address] * (ABNORMAL) BLOOD GAS 2 VENOUS (05/15/2023 12:49 AM EDT) pH, Venous 7.33 7.32 - 7.42 [facility] PCO2, Venous 37(L) 41 - 51 mmHg [facility] PO2, Venous 34 25 - 40 mmHg [facility] Bicarbonate, Venous 19.1 mmol/L [facility] Base Excess, Venous -6.8 mmol/L [facility] Hgb Blood Gas 10.8(L) 11.7 - 15.5 g/dL [facility] Oxyhemoglobin, Venous 58.1 % [facility] Carboxyhemoglob in, Venous 0.3 % [facility] Comment: Nonsmokers: 0.5-1.5% COHB Smokers: Variable, but usually less than 10% Toxic: 20-30% COHB Lethal: Greater than 60% COHB Methemoglobin, Venous 0.6 <=1.5 % [facility] Na Whole Blood 136 135 - 145 mmol/L [facility] K Whole Blood 3.7 3.5 - 5.0 mmol/L [facility] Comment: Please note: Patients with WBC >100,000 may have falsely elevated Potassium levels. Contact the Clinical Chemistry Laboratory if there are any questions. ICa Whole Blood 1.12(L) 1.15 - 1.33 mmol/L [facility] Comment: Note: ??Total bilirubin higher than 20 mg/dL may lead to falsely low ionized calcium. CL Whole Blood 95(L) 98 - 107 mmol/L [facility] Gluc Whole Bld 101 65 - 199 mg/dL [facility] Comment:Diabetes: >=200 mg/d L plus symptoms Lactate WB 1.3 0.5 - 2.2 mmol/L [facility] Flow, Mike 1.0 LPM [facility] Blood Gas Source Venous [facility] Blood 05/15/2023 12:4 9 AM EDT 05/15/2023 12:49 AM EDT Alirio Hudson MD POINT OF CARE TEST ORDERABLES Performing Organization Address City/State/[facility] Co de Phone Number [facility] [place] [address] * US Retroperitoneal Complete (05/14/2023 3:53 PM [...] who have questions, please contact the health residential caregiver that requested your imaging first. ? Hayden Robledo, Staff Physician Electronically Signed Final Report ?? 05/14/2023 04:39 pm Narrative 05/14/2023 4:39 PM EDT Renal ? (Signed Final 05/14/2023 04:39 pm) PATIENT INFO: ID #: ? [id number] ?: ??55 (67 yrs)(F) Name: ? PURNIMA THACKER ?Visit Date: 05/14/2023 03:44 pm PERFORMED BY: Attending: ?Meena CULP, Hayden Stafford Resident: ? Nell CULP, Anand August Performed By: ? Consuelo Tello RDMS Referred By: ?ALIRIO Powell BECCA Location: ? [facility] SERVICE(S) PROVIDED: URETRO - Retroperitoneal Complete - [id number] ? [id number] INDICATIONS: [facility] COMPARISON: CT: Abdomen/Pelvis 05/11/23 RIGHT [...] 05/14/2023 04:39 pm) PATIENT INFO: ID #: [id number] : 55 (67 yrs)(F) Name: PURNIMA THACKER Visit Date: 05/14/2023 03:44 pm PERFORMED BY: Attending: Hayden Robledo MD Resident: Anand Camejo MD Performed By: Consuelo Tello RDMS Referred By: ALIRIO HUDSON Location: [facility] SERVICE(S) PROVIDED: URETRO - Retroperitoneal Complete - [id number] INDICATIONS: [facility] COMPARISON: CT: Abdomen/Pelvis 05/11/23 RIGHT [...] who have questions, please contact the health residential caregiver that requested your imaging first. Hayden Robledo, Staff Physician Electronically Signed Final Report 05/14/2023 04:39 pm Alirio Hudson MD IMG US GEN ORDERABL ES * CK (05/14/2023 3:17 PM EDT) Pathologist [facility] Creatine Kinase 123 0 - 160 unit/L [facility] Blood 05/14/2023 3:17 PM EDT 05/14/2023 3:31 PM EDT Narrative Resulting Agency Comment Spec In Lab Alirio Hudson MD CHEMISTRY ORDERABLE S Performing Organization Address City/[facility]/ZIP Co de Phone Number [facility] [place] [address] * (ABNORMAL) Uric acid (05/14/2023 3:17 PM EDT) [facility] Uric Acid 14.9(H) 2.5 - 6.5 mg/dL [facility] Blood 05/14/2023 3:17 PM EDT 05/14/2023 3:31 PM EDT Narrative Resulting Agency Comment Spec In Lab Alirio Hudson MD CHEMISTRY ORDERABLE S Performing Organization Address [facility] Co de Phone Number [facility] [place] [address] * (ABNORMAL) Osmolality (05/14/2023 3:17 PM EDT) Pathologist [facility] Osmolality 311(H) 275 - 295 mOsm/kg [facility] Blood 05/14/2023 3:17 PM EDT 05/14/2023 3:31 PM EDT Narrative Resulting Agency Comment Spec In Lab Alirio Hudson MD CHEMISTRY ORDERABLE S Performing Organization Address [facility] Co de Phone Number [facility] [place] [address] * (ABNORMAL) Differential, Automated (05/14/2023 1:10 AM EDT) Neutrophil % 87.2 % [facility] Neutrophil Absolute 9.74(H) 1.70 - 6.10 x10(3)/mc L [facility] Lymph % 3.9 % [facility] Lymphocytes Abs 0.4(L) 0.9 - 3.2 x10(3)/mc L [facility] Monocyte % 7.9 % [facility] Monocyte Abs 0.9 0.3 - 0.9 x10(3)/ L [facility] Eos % 0.0 % [facility] Eosinophils Abs 0.0 0.0 - 0.4 x10(3)/ L [facility] Basophil % 0.1 % [facility] Baso Absolute 0.0 0.0 - 0.1 x10(3)/ L [facility] Immature Gran % 0.90 % [facility] Comment: Immature granulocytes(IG's)percentage and absolute count will include metamyelocytes, myelocytes, and promyelocytes. Blood smears from CBCs yielding IG's will be scanned manually for concordance. If this scan disagrees with the automated IG or if promyelocytes are noted, a manual differential will be performed. Immature Gran Absolute 0.10(H) 0.00 - 0.04 x10(3)/ L [facility] Blood 05/14/2023 1:10 AM EDT 05/14/2023 1:24 AM EDT Narrative Resulting Agency Comment Spec In Lab Bonita TOBAR HEMATOLOGY ORDERABLE S Performing Organization Address City/State/[facility] Co de Phone Number [facility] [place] [address] * (ABNORMAL) Hemogram (05/14/2023 1:10 AM EDT) White Blood Cell 11.2(H) 4.0 - 9.5 x10(3)/mc L [facility] Red Blood Cell 2.19(L) 4.00 - 5.21 x10(6)/ L [facility] Hemoglobin 7.2(L) 11.7 - 15.5 g/dL [facility] Hematocrit 20.3(L) 35.7 - 45.8 % [facility] Mean Cell Volume 92.7 82.6 - 94.4 fL [facility] Mean Cell Hemoglobin 32.9(H) 27.1 - 32.0 pg [facility] Mean Cell Hemoglobin Concentration 35.5(H) 31.7 - 35.0 g/dL [facility] Platelet 112(L) 145 - 357 x10(3)/mc L [facility] RDW Standard Deviation 41.4 37.0 - 46.0 fL [facility] RDW coefficient of variation 12.5 11.5 - 14.1 % [facility] Mean Platelet Volume 10.4 7.6 - 12.9 fL [facility] NRBC% auto 1.5 % [facility] NRBC Absolute 0.170(H) 0.000 - 0.000 x10(3)/mc L [facility] Blood 05/14/2023 1:10 AM EDT 05/14/2023 1:24 AM EDT Narrative Resulting Agency Comment Spec In Lab Bonita TOBAR HEMATOLOGY ORDERABLE S Performing Organization Address City/State/[facility] Co de Phone Number [facility] [place] [address] * (ABNORMAL) Comprehensive metabolic panel (non-fasting) (05/14/2023 1:10 AM EDT) Glucose 120 65 - 199 mg/dL [facility] Comment:Diabetes: >=200 mg/d L plus symptoms Blood Urea Nitrogen 98(H) 8 - 18 mg/dL [facility] Creatinine 4.80(H) 0.70 - 1.20 mg/dL [facility] Comment:result rechecked-ssc Sodium 132(L) 135 - 145 mmol/L [facility] Potassium 4.1 3.5 - 5.0 mmol/L [facility] Comment: Please note: ??Patients with WBC >100,000 may have falsely elevated Potassium levels. ??For accurate Potassium quantification in these patients send serum separator tube (gold top) for subsequent determinations. ??Contact the Clinical Chemistry Laboratory if there are any questions. Chloride 94(L) 98 - 107 mmol/L [facility] Carbon Dioxide 18(L) 22 - 31 mmol/L [facility] Anion Gap 20(H) 5 - 15 mmol/L [facility] Calcium 8.5 8.5 - 10.5 mg/dL [facility] Protein, Total 5.8(L) 6.1 - 8.0 g/dL [facility] Albumin 3.6 3.2 - 5.2 g/dL [facility] Aspartate Aminotransferase 319(H) 0 - 30 unit/L [facility] Alanine Aminotransferase 437(H) 0 - 30 unit/L [facility] Alkaline Phosphatase 86 35 - 105 unit/L [facility] Bilirubin, Total 0.4 0.2 - 1.3 mg/dL [facility] Est Glomerular Filtration Rate 9(L) >=60 mL/min/1. 73 m?? [facility] Comment: This patient's estimated [...] MD CHEMISTRY ORDERABLE S Performing Organization Address City/[facility] [place] [address] * APTT (05/13/2023 10:15 AM EDT) Partial Thromboplastin Time 27 25 - 37 sec [facility] Comment: The PTT is NOT appropriate for heparin monitoring. Use the Anti-Xa level for heparin monitoring (HEP UFH) or LMWH monitoring (HEP LMW). A PTT less than 37 seconds generally indicates adequate hemostasis. Blood 05/13/2023 10:1 5 AM EDT 05/13/2023 10:46 AM EDT Narrative Resulting Agency Comment Spec In Lab Alirio Hudson MD HEMATOLOGY ORDERABL ES Performing Organization Address City/[facility]/ZIP Co de Phone Number [facility] [place] [address] * (ABNORMAL) Prothrombin Time (05/13/2023 10:15 AM EDT) Prothrombin Time 14.6(H) 9.4 - 12.5 sec [facility] International Normalization Ratio 1.3 [facility] Comment: An INR <2.0 [...] Lab Alirio Hudson MD HEMATOLOGY ORDERABL ES [facility] [place] [address] * EKG 12 Lead (05/13/2023 9:22 AM EDT) Ventricular rate 92 BPM MUSE SYSTEM Atrial Rate 92 BPM MUSE SYSTEM P-R Interval 140 ms MUSE SYSTEM QRS Duration 104 ms MUSE SYSTEM Q-T Interval 384 ms MUSE SYSTEM QTC Calculated (Bezet) 474 ms MUSE SYSTEM Calculated P [place] 33 degrees MUSE SYSTEM Calculated R [place] 41 degrees MUSE SYSTEM Calculated T [place] -35 degrees MUSE SYSTEM INTERPRETATION Sinus rhythm with frequent Premature ventricular complexes Septal infarct , age undetermined ST & T wave abnormality, consider lateral ischemia Abnormal ECG When compared with ECG of 12-MAY-2023 10:10, Premature ventricular complexes are now Present I personally reviewed the tracing and edited the fellows interpretation Confirmed by fellow MD Anitha, Carissa ([id number]) on 05/13/2023 3:25:30 PM Confirmed by Maxx Best ([id number]) on 05/13/2023 8:30:56 PM MUSE SYSTEM 05/13/2023 9:22 AM EDT 05/13/2023 8:30 PM EDT Alirio Hudson MD ECG ORDERABLES MUSE SYSTEM * (ABNORMAL) Differential, Automated (05/13/2023 1:15 AM EDT) Neutrophil % 88.1 % [facility] Neutrophil Absolute 7.62(H) 1.70 - 6.10 x10(3)/mc L [facility] Lymph % 3.1 % [facility] Lymphocytes Abs 0.3(L) 0.9 - 3.2 x10(3)/mc L [facility] Monocyte % 7.9 % [facility] Monocyte Abs 0.7 0.3 - 0.9 x10(3)/mc L [facility] Eos % 0.0 % [facility] Eosinophils Abs 0.0 0.0 - 0.4 x10(3)/mc L [facility] Basophil % 0.1 % [facility] Baso Absolute 0.0 0.0 - 0.1 x10(3)/mc L [facility] Immature Gran % 0.80 % [facility] Comment: Immature granulocytes(IG's)percentage and absolute count will include metamyelocytes, myelocytes, and promyelocytes. Blood smears from CBCs yielding IG's will be scanned manually for concordance. If this scan disagrees with the automated IG or if promyelocytes are noted, a manual differential will be performed. Immature Gran Absolute 0.07(H) 0.00 - 0.04 x10(3)/mc L [facility] Blood 05/13/2023 1:15 AM EDT 05/13/2023 1:29 AM EDT Narrative Resulting Agency Comment Spec In Lab Lorri TOBAR HEMATOLOGY ORDERABLE S [facility] [place] [address] * (ABNORMAL) Hemogram (05/13/2023 1:15 AM EDT) White Blood Cell 8.6 4.0 - 9.5 x10(3)/mc L [facility] Red Blood Cell 2.37(L) 4.00 - 5.21 x10(6)/mc L [facility] Hemoglobin 7.8(L) 11.7 - 15.5 g/dL [facility] Hematocrit 22.2(L) 35.7 - 45.8 % [facility] Mean Cell Volume 93.7 82.6 - 94.4 fL [facility] Mean Cell Hemoglobin 32.9(H) 27.1 - 32.0 pg [facility] Mean Cell Hemoglobin Concentration 35.1(H) 31.7 - 35.0 g/dL [facility] Platelet 130(L) 145 - 357 x10(3)/mc L [facility] RDW Standard Deviation 41.7 37.0 - 46.0 fL [facility] RDW coefficient of variation 12.5 11.5 - 14.1 % [facility] Mean Platelet Volume 10.2 7.6 - 12.9 fL [facility] NRBC% auto 0.5 % [facility] NRBC Absolute 0.040(H) 0.000 - 0.000 x10(3)/mc L [facility] Blood 05/13/2023 1:15 AM EDT 05/13/2023 1:29 AM EDT Narrative Resulting Agency Comment Spec In Lab Lorri TOBAR HEMATOLOGY ORDERABLE S [facility] [place] [address] * (ABNORMAL) Hepatic Function Panel (05/13/2023 1:15 AM EDT) Protein, Total 5.5(L) 6.1 - 8.0 g/dL [facility] Albumin 3.0(L) 3.2 - 5.2 g/dL [facility] Aspartate Aminotransferase 792(H) 0 - 30 unit/L [facility] Alanine Aminotransferase 903(H) 0 - 30 unit/L [facility] Alkaline Phosphatase 85 35 - 105 unit/L [facility] Bilirubin, Total 0.5 0.2 - 1.3 mg/dL [facility] Bilirubin, Direct 0.3 0.0 - 0.3 mg/dL [facility] Blood 05/13/2023 1:15 AM EDT 05/13/2023 1:29 AM EDT Narrative Resulting Agency Comment Spec In Lab Alirio Hudson MD CHEMISTRY ORDERABLE S [facility] [place] [address] * (ABNORMAL) Basic Metabolic Panel (non-fasting) (05/13/2023 1:15 AM EDT) Glucose 107 65 - 199 mg/dL [facility] Comment:Diabetes: >=200 mg/d L plus symptoms Blood Urea Nitrogen 82(H) 8 - 18 mg/dL [facility] Creatinine 3.15(H) 0.70 - 1.20 mg/dL [facility] Comment:result rechecked-OG Sodium 132(L) 135 - 145 mmol/L [facility] Potassium 3.8 3.5 - 5.0 mmol/L [facility] Comment: Please note: ??Patients with WBC >100,000 may have falsely elevated Potassium levels. ??For accurate Potassium quantification in these patients send serum separator tube (gold top) for subsequent determinations. ??Contact the Clinical Chemistry Laboratory if there are any questions. Chloride 95(L) 98 - 107 mmol/L [facility] Carbon Dioxide 20(L) 22 - 31 mmol/L [facility] Anion Gap 17(H) 5 - 15 mmol/L [facility] Calcium 8.3(L) 8.5 - 10.5 mg/dL [facility] Est Glomerular Filtration Rate 16(L) >=60 mL/min/1. 73 m?? [facility] Comment: This patient's estimated [...] Lab Alirio Hudson MD CHEMISTRY ORDERABLE S [facility] [place] [address] * (ABNORMAL) BLOOD GAS 2 ARTERIAL (05/12/2023 3:57 PM EDT) pH, Arterial 7.39 7.35 - 7.45 [facility] PCO2, Arterial 33(L) 35 - 45 mmHg [facility] PO2, Arterial 101 85 - 104 mmHg [facility] Bicarbonate, Arterial 19.5(L) 20.0 - 26.0 mmol/L [facility] Base Excess, Arterial -5.5(L) -3.0 - 3.0 mmol/L [facility] Hgb Blood Gas 9.8(L) 11.7 - 15.5 g/dL [facility] Oxyhemoglobin, Arterial 95.2 94.0 - 97.0 % [facility] Carboxyhemoglob in, Arterial 0.2 % [facility] Comment: Nonsmokers: 0.5-1.5% COHB Smokers: Variable, but usually less than 10% Toxic: 20-30% COHB Lethal: Greater than 60% COHB Methemoglobin, Arterial 0.8 <=1.5 % [facility] Na Whole Blood 129(L) 135 - 145 mmol/L [facility] K Whole Blood 3.8 3.5 - 5.0 mmol/L [facility] Comment: Please note: Patients with WBC >100,000 may have falsely elevated Potassium levels. Contact the Clinical Chemistry Laboratory if there are any questions. ICa Whole Blood 1.05(L) 1.15 - 1.33 mmol/L [facility] Comment: Note: ??Total bilirubin higher than 20 mg/dL may lead to falsely low ionized calcium. CL Whole Blood 96(L) 98 - 107 mmol/L [facility] Gluc Whole Bld 178 65 - 199 mg/dL [facility] Comment:Diabetes: >=200 mg/d L plus symptoms. Lactate WB 1.5 0.5 - 2.2 mmol/L [facility] FIO2 Art 40 % [facility] PF Ratio Art 252 [facility] Blood 05/12/2023 3:57 PM EDT 05/12/2023 3:57 PM EDT Alirio Hudson MD POINT OF CARE TEST ORDERABLES Performing Organization Address [facility] Co de Phone Number [facility] [place] [address] * (ABNORMAL) Coox2 (05/12/2023 2:25 PM EDT) pO2, Coox 37 mmHg [facility] Hgb Blood Gas 9.5(L) 11.7 - 15.5 g/dL [facility] Oxyhemoglobin, Coox 59.9 % [facility] Carboxyhemoglo bin, Coox 0.3 % [facility] Comment: Nonsmokers: 0.5-1.5% COHB Smokers: Variable, but usually less than 10% Toxic: 20-30% COHB Lethal: Greater than 60% COHB Methemoglobin, Coox 0.7 <=1.5 % [facility] Source Coox Mixed Venous [facility] Blood 05/12/2023 2:25 PM EDT 05/12/2023 2:25 PM EDT Alirio Hudson MD POINT OF CARE TEST ORDERABLES Performing Organization Address City/[facility] Co de Phone Number [facility] [place] [address] * (ABNORMAL) BLOOD GAS 2 ARTERIAL (05/12/2023 2:23 PM EDT) pH, Arterial 7.37 7.35 - 7.45 [facility] PCO2, Arterial 36 35 - 45 mmHg [facility] PO2, Arterial 102 85 - 104 mmHg [facility] Bicarbonate, Arterial 20.4 20.0 - 26.0 mmol/L [facility] Base Excess, Arterial -4.8(L) -3.0 - 3.0 mmol/L [facility] Hgb Blood Gas 12.7 11.7 - 15.5 g/dL [facility] Oxyhemoglobin, Arterial 95.4 94.0 - 97.0 % [facility] Carboxyhemoglob in, Arterial 0.3 % [facility] Comment: Nonsmokers: 0.5-1.5% COHB Smokers: Variable, but usually less than 10% Toxic: 20-30% COHB Lethal: Greater than 60% COHB Methemoglobin, Arterial 0.7 <=1.5 % [facility] Na Whole Blood 129(L) 135 - 145 mmol/L [facility] K Whole Blood 3.7 3.5 - 5.0 mmol/L [facility] Comment: Please note: Patients with WBC >100,000 may have falsely elevated Potassium levels. Contact the Clinical Chemistry Laboratory if there are any questions. ICa Whole Blood 1.05(L) 1.15 - 1.33 mmol/L [facility] Comment: Note: ??Total bilirubin higher than 20 mg/dL may lead to falsely low ionized calcium. CL Whole Blood 95(L) 98 - 107 mmol/L [facility] Gluc Whole Bld 168 65 - 199 mg/dL [facility] Comment:Diabetes: >=200 mg/d L plus symptoms. Lactate WB 1.8 0.5 - 2.2 mmol/L [facility] FIO2 Art 40 % [facility] PF Ratio Art 255 [facility] Blood 05/12/2023 2:23 PM EDT 05/12/2023 2:23 PM EDT Alirio Hudson MD POINT OF CARE TEST ORDERABLES Performing Organization Address City/State/[place] [facility] Co de Phone Number [facility] [place] [address] * (ABNORMAL) Troponin (05/12/2023 2:05 PM EDT) Troponin-T, High Sensitivity 1,022(H) <=14 ng/L [facility] Comment: This patient's troponin T [...] value can be found in the [facility] Laboratory Test Catalog Troponin - [facility] Laboratory Test Catalog Reference: Fourth [place] Definition of Myocardial Infarction. Journal of the [place] 2018;72:3469-8893 Blood 05/12/2023 2:05 PM EDT 05/12/2023 2:14 PM EDT Narrative Resulting Agency Comment Spec In Lab Alirio Hudson MD CHEMISTRY ORDERABLE S Performing Organization Address [facility] Co de Phone Number [facility] [place] [address] * (ABNORMAL) Hemoglobin (05/12/2023 2:05 PM EDT) Hemoglobin 8.5(L) 11.7 - 15.5 g/dL [facility] Blood 05/12/2023 2:05 PM EDT 05/12/2023 2:14 PM EDT Narrative Resulting Agency Comment Spec In Lab Alirio Hudson MD HEMATOLOGY ORDERABL ES Performing Organization Address [facility] Co de Phone Number [facility] [place] [address] * Potassium (05/12/2023 2:05 PM EDT) Potassium 3.9 3.5 - 5.0 mmol/L [facility] Comment: Please note: ??Patients [...] [facility] Co de Phone Number [facility] [place] [address] * (ABNORMAL) BLOOD GAS 2 ARTERIAL (05/12/2023 11:05 AM EDT) pH, Arterial 7.34(L) 7.35 - 7.45 [facility] PCO2, Arterial 42 35 - 45 mmHg [facility] PO2, Arterial 73(L) 85 - 104 mmHg [facility] Bicarbonate, Arterial 22.1 20.0 - 26.0 mmol/L [facility] Base Excess, Arterial -3.6(L) -3.0 - 3.0 mmol/L [facility] Hgb Blood Gas 9.3(L) 11.7 - 15.5 g/dL [facility] Oxyhemoglobin, Arterial 89.3(L) 94.0 - 97.0 % [facility] Carboxyhemoglob in, Arterial 0.2 % [facility] Comment: Nonsmokers: 0.5-1.5% COHB Smokers: Variable, but usually less than 10% Toxic: 20-30% COHB Lethal: Greater than 60% COHB Methemoglobin, Arterial 0.9 <=1.5 % [facility] Na Whole Blood 131(L) 135 - 145 mmol/L [facility] K Whole Blood 3.8 3.5 - 5.0 mmol/L [facility] Comment: Please note: Patients with WBC >100,000 may have falsely elevated Potassium levels. Contact the Clinical Chemistry Laboratory if there are any questions. ICa Whole Blood 1.04(L) 1.15 - 1.33 mmol/L [facility] Comment: Note: ??Total bilirubin higher than 20 mg/dL may lead to falsely low ionized calcium. CL Whole Blood 96(L) 98 - 107 mmol/L [facility] Gluc Whole Bld 152 65 - 199 mg/dL [facility] Comment:Diabetes: >=200 mg/d L plus symptoms. Lactate WB 2.8(H) 0.5 - 2.2 mmol/L [facility] FIO2 Art 40 % [facility] PF Ratio Art 182 [facility] Blood 05/12/2023 11:0 5 AM EDT 05/12/2023 11:05 AM EDT Alirio Hudson MD POINT OF CARE TEST ORDERABLES [facility] [address] [place] [address] * (ABNORMAL) BLOOD GAS 2 ARTERIAL (05/12/2023 10:14 AM EDT) pH, Arterial 7.18(Criti gabrielle) 7.35 - 7.45 [facility] Comment:Noted by brass wind instrument maker. PCO2, Arterial 45 35 - 45 mmHg [facility] PO2, Arterial 186(H) 85 - 104 mmHg [facility] Bicarbonate, Arterial 16.2(L) 20.0 - 26.0 mmol/L [facility] Base Excess, Arterial -12.2(L) -3.0 - 3.0 mmol/L [facility] Hgb Blood Gas 10.0(L) 11.7 - 15.5 g/dL [facility] Oxyhemoglobin, Arterial 97.0 94.0 - 97.0 % [facility] Carboxyhemoglob in, Arterial 0.2 % [facility] Comment: Nonsmokers: 0.5-1.5% COHB Smokers: Variable, but usually less than 10% Toxic: 20-30% COHB Lethal: Greater than 60% COHB Methemoglobin, Arterial 0.9 <=1.5 % [facility] Na Whole Blood 129(L) 135 - 145 mmol/L [facility] K Whole Blood 3.6 3.5 - 5.0 mmol/L [facility] Comment: Please note: Patients with WBC >100,000 may have falsely elevated Potassium levels. Contact the Clinical Chemistry Laboratory if there are any questions. ICa Whole Blood 1.10(L) 1.15 - 1.33 mmol/L [facility] Comment: Note: ??Total bilirubin higher than 20 mg/dL may lead to falsely low ionized calcium. CL Whole Blood 97(L) 98 - 107 mmol/L [facility] Gluc Whole Bld 161 65 - 199 mg/dL [facility] Comment:Diabetes: >=200 mg/d L plus symptoms. Lactate WB 3.3(H) 0.5 - 2.2 mmol/L [facility] FIO2 Art 100 % [facility] PF Ratio Art 186 [facility] Blood 05/12/2023 10:1 4 AM EDT 05/12/2023 10:14 AM EDT Alirio Hudson MD POINT OF CARE TEST ORDERABLES Performing Organization Address City/[facility] Co de Phone Number [facility] [place] [address] * EKG 12 Lead (05/12/2023 10:10 AM EDT) Ventricular rate 116 BPM MUSE SYSTEM Atrial Rate 116 BPM MUSE SYSTEM P-R Interval 158 ms MUSE SYSTEM QRS Duration 114 ms MUSE SYSTEM Q-T Interval 348 ms MUSE SYSTEM QTC Calculated (Bezet) 483 ms MUSE SYSTEM Calculated P [place] 37 degrees MUSE SYSTEM Calculated R [place] 31 degrees MUSE SYSTEM Calculated T [place] -138 degrees MUSE SYSTEM INTERPRETATION Sinus tachycardia [...] interpretation Confirmed by fellow MD Anuja, Jim ([id number]) on 05/12/2023 1:04:20 PM Confirmed by MD Villareal Danette ([id number]) on 05/12/2023 9:28:34 PM MUSE SYSTEM 05/12/2023 [...] who have questions please contact the health residential caregiver that requested your imaging first. ? Narrative 05/12/2023 10:08 AM EDT EXAMINATION: XR CHEST ONE VIEW CLINICAL HISTORY: Post TAVR TECHNIQUE: 1 view of the chest COMPARISON: Chest radiograph from earlier today FINDINGS: Interval placement of endotracheal tube with tip terminating 2 cm above the shira. Interval placement of enteric tube projecting along the expected course of the esophagus and outside the pmiti-hw-vzyn. Interval retraction of right IJ approach pulmonary [...] expected course ofthe esophagus and outside the ufkde-hm-cmja. Interval retraction of right IJ approach pulmonary [...] patients who have questions please contactthe health residential caregiver that requested your imaging first. Alirio Hudson MD IMG DX ORDERABLES * ECHO LMTD W/O CONTRAST W LMTD SPEC DOPP COLOR DOPP (05/12/2023 9:23 AM EDT) EF 20 HEARTLAB SYSTEM Anatomical Region Laterality Modality Cardiac Other 05/12/2023 7:33 AM EDT Narrative 05/12/2023 10:18 AM EDT ? Echocardiogram Report Name: PURNIMA THACKER ?Study Date: 05/12/2023 07:33 AMBP: 96/63 mmHg ? Patient Location: [place] CA06 A : 1955 ? Height: 154 cm ? Account: [id number] Age: 67 yrs ? Weight: 75 kg Gender: Female ?BSA: 1.7 m2 Ordering Physician: RADHA HOLLINS Referring Physician: RADHA HOLLINS Performed By: Dilma Bee RDCS Reason For Study: Guidance for TAVR procedure Exam Location: [facility]. Interpretation Summary PRE TAVR: There [...] mL/m2. POST TAVR: Normal function of the yvhms-tg-bdlsp prosthesis. See below for hemodynamic parameters. Slight improvement in left and right ventricular systolic function. LVEF now 20-25%. No pericardial effusion. See report for additional findings. Procedure Limited - 25254. Doppler - 76993. Color Doppler - 19807. Left Ventricle Left ventricle is of normal [...] Date: 307:33 AMBP: 96/63 mmHg Patient Location: [address] : 1955 Height: 154 cm Account: [id number] Age: 67 yrs Weight: 75 kg Gender: Female BSA: 1.7 m2 Ordering Physician: RADHA HOLLINS Referring Physician: RADHA HOLLINS Performed By: Dilma Bee RDCS Reason For Study: Guidance for TAVR procedure Exam Location: [facility]. Interpretation Summary PRE TAVR: There [...] 28mL/m2. POST TAVR: Normal function of the ercya-qd-pzjao prosthesis. See belowfor hemodynamic parameters. Slight improvement in left and right ventricularsystolic function. LVEF now 20-25%. No pericardial effusion. See report for additional findings. Procedure Limited - 20588. Doppler - 33153. Color Doppler - 79085. Left Ventricle Left ventricle is of normal [...] Modality Other Narrative 05/12/2023 2:37 PM EDT ?[facility] ? Cardiac Catheterization/Intervention Report ? Patient Name: Kirstie, Purnima M. ? Procedure Date: 05/12/2023 ? A #: [id number] ? Primary Physician: Antelmo Sharma ? Case #: [id number] ? File Name: [id number] ? Catheterization Order Number: [id number] ? [facility] ? Final Report [place], [place] ? Patient Name: ? Purnima M. Kirstie ? ID#: ?[id number] ? : ?1955 ? Procedure Date: ? May 12, 2023 ? Case #: ? [id number] ? Room: ? 6 ? Case Physicians: ?Antelmo Sharma M.D. ?Start: ?08:03 ?Alirio Hudson M.D. ?Admission: ??05/08/2023 ?Lynda Mcgowan M.D. ? Discharge: ??05/22/2023 ?Fellow: ? Rebekah Tejeda M.D. ? Referring Physician: ??Mario Alberto Chin M.D. ? Procedures: ?* Coronary Angiography ?* Left Heart Catheterization ?* Coronary Stent Insertion ?* Transcatheter Aortic Valve Replacement ?* Vascular Closure Device Deployment ?* Temporary Pacemaker Insertion In Is Consultant ?* Endotracheal Intubation By Non-Cath Physician ?* [...] was designated as ASA Class IV. The [facility] clinical ?frailty scale is 4: Vulnerable. [...] guide. ??A premounted 4.00 x 30 mm Thurmond Alden (MINNA) was ? deployed with a maximum [...] calculated STS risk score was 30.1%. A xliwg-gz-pmslp ?procedure was performed on the pre-existing bioprosthetic stented ?prosthesis. The priority of the rfrgv-lf-qlmzl procedure was Elective. ?The procedure was performed [...] Lai 3 Ultra RESILIA 23 mm THV (s/a=[id number]) transcatheter ?valve was inserted using standard technique. [...] nor was it given in the ?laborer wharf. ?Recommended anti-platelet/anti-thrombotic regimen: ?Continue aspirin 81 mg daily for indefinitely. ?These recommendations are made at the time of the intervention. Patient ?and provider preferences or a changing clinical situation may require ?modification of this regimen. Consult [facility] Interventional Cardiology for ?questions. ? Conclusions: ?* [...] regimen. ? Comments: ?Successful right transfemoral TAVR Ivdbl-cm-Wzcra with a 23 mm Lai 3 ?THV. [...] access site angiography, ?temporary pacemaker in laborer wharf, intubation-non cath physician, vascular ?closure device, transthoracic echo ??and TAVR. Dr. Alirio Hudson M.D. ?performed the left heart catheterization, access site angiography, ?temporary pacemaker in laborer wharf, vascular closure device, transthoracic ?echo , TAVR and CPR during cath. Dr. Lynda Mcgowan M.D. performed the ABG, ?anesthesia and intubation-non cath physician. ? Antelmo Sharma M.D. ? Electronically Signed by: Antelmo Sharma M.D. ? Report Finalized: 05/12/2023 ??14:31 ? Report Last Ammended: 07/01/2023 ??11:30 ? Procedure Note Antelmo Sharma MD - 07/01/2023 [facility] Cardiac Catheterization/Intervention Report Patient Name: Purnima Thacker Procedure Date: 05/12/2023 A #: [id number] Primary Physician: Antelmo Sharma Case #: [id number] File Name: [id number] Catheterization Order Number: [id number] [facility] FinalReport [place], [place] Patient Name: Purnima Thacker ID#:[id number] :1955 Procedure Date: May 12, 2023 Case #: [id number] Room: 6 Case Physicians: Antelmo Sharma M.D. Start: 08:03 Alirio Hudson M.D. Admission:05/08/2023 Lynda Mcgowan M.D. Discharge:05/22/2023 Fellow: Rebekah Tejeda M.D. Referring Physician: Mario Alberto Chin M.D. Procedures: * Coronary Angiography * Left Heart Catheterization * Coronary Stent Insertion * Transcatheter Aortic Valve Replacement * Vascular Closure Device Deployment * Temporary Pacemaker Insertion In Is Consultant * Endotracheal Intubation By Non-Cath Physician * [...] guide. A premounted 4.00 x 30 mm Thurmond Alden (MINNA) was deployed with a maximum inflation [...] calculated STS risk score was 30.1%. A ykiqc-ug-hihht procedure was performed on the pre-existing bioprosthetic stented prosthesis. The priority of the nztwj-lt-hzsce procedure wasElective. The procedure was performed under Moderate sedation performed byLynda Mcgowan M.D. (see anesthesia report for additional details). Alirio Hudson M.D. participated in the case (see Cardiac Surgery reportfor additional details). The TAVR sheath was a 14 Fr Corona eSheath Introducer and theaccess site was femoral. Rapid ventricular pacing was performed. An Corona Lai 3 Ultra RESILIA 23 mm THV (s/y=[id number])transcatheter valve was inserted using standard technique. The [...] to nor was it given inthe laborer wharf. Recommended anti-platelet/anti-thrombotic regimen: Continue aspirin 81 mg daily for indefinitely. These recommendations are made at the time of the intervention.Patient and provider preferences or a changing clinical situation mayrequire modification of this regimen. Consult [facility]iologyfor questions. Conclusions: * Nonobstructive disease [...] this regimen. Comments: Successful right transfemoral TAVR Excmn-bz-Ucqct with a 23 mmSapien 3 THV. We [...] access site angiography, temporary pacemaker in laborer wharf, intubation-non cath physician,vascular closure device, transthoracic echo and TAVR. Dr. Alirio Hudson M.D. performed the left heart catheterization, access site angiography, temporary pacemaker in laborer wharf, vascular closure device,transthoracic echo , TAVR and [...] pH, POC 7.20(Crit ical) 7.35 - 7.45 [facility] Comment:Critical value OK, C C Lab. pCO2, POC 42 35 - 45 mmHg [facility] pO2, POC 260(H) 85 - 104 mmHg [facility] Base Excess, POC -11.0(L) -3.0 - 3.0 mmol/L [facility] Bicarbonate, POC 16.7(L) 20.0 - 26.0 mmol/L [facility] Sodium, POC 129(L) 135 - 145 mmol/L [facility] POC Potassium 3.8 3.5 - 5.0 mmol/L [facility] Ionized Calcium, POC 1.12(L) 1.15 - 1.33 mmol/L [facility] POC Hematocrit 23.0(L) 34.0 - 45.0 % [facility] POC Calc Hgb 7.8(L) 11.2 - 15.7 g/dL [facility] Comment:The calculation of h emoglobin from hematocrit assumes a normal MCHC. POC Bgas Loc CC Lab [facility] Blood 05/12/2023 8:50 AM EDT 05/13/2023 12:00 PM EDT Alirio Hudson MD CHEMISTRY ORDERABLE S [facility] [place] [address] * (ABNORMAL) Point of Care Blood Gas Historical (05/12/2023 8:10 AM EDT) pH, POC 7.27(Crit ical) 7.35 - 7.45 [facility] Comment:Critical value OK, C C Lab. pCO2, POC 37 35 - 45 mmHg [facility] pO2, POC 29(Critic al) 85 - 104 mmHg [facility] Comment:Critical value OK, C C Lab. Base Excess, POC -10.0(L) -3.0 - 3.0 mmol/L [facility] Bicarbonate, POC 16.7(L) 20.0 - 26.0 mmol/L [facility] Sodium, POC 123(L) 135 - 145 mmol/L [facility] POC Potassium 4.0 3.5 - 5.0 mmol/L [facility] Ionized Calcium, POC 1.12(L) 1.15 - 1.33 mmol/L [facility] POC Hematocrit 27.0(L) 34.0 - 45.0 % [facility] POC Calc Hgb 9.2(L) 11.2 - 15.7 g/dL [facility] Comment:The calculation of h emoglobin from hematocrit assumes a normal MCHC. POC Bgas Loc CC Lab [facility] Blood 05/12/2023 8:10 AM EDT 05/13/2023 12:00 PM EDT Alirio Hudson MD CHEMISTRY ORDERABLE S [facility] [place] [address] * (ABNORMAL) Lactate, whole blood, send to lab ([facility]) (05/12/2023 7:00 AM EDT) Lactate WB 2.4(H) 0.5 - 2.2 mmol/L [facility] Blood 05/12/2023 7:00 AM EDT 05/12/2023 7:09 AM EDT Narrative Resulting Agency Comment Spec In Lab Radha Hollins MD CHEMISTRY ORDERABL ES [facility] [place] [address] * (ABNORMAL) Comprehensive metabolic panel (non-fasting) (05/12/2023 6:00 AM EDT) Glucose 167 65 - 199 mg/dL [facility] Comment:Diabetes: >=200 mg/d L plus symptoms Blood Urea Nitrogen 67(H) 8 - 18 mg/dL [facility] Creatinine 2.01(H) 0.70 - 1.20 mg/dL [facility] Sodium 131(L) 135 - 145 mmol/L [facility] Potassium 4.3 3.5 - 5.0 mmol/L [facility] Comment: Please note: ??Patients with WBC >100,000 may have falsely elevated Potassium levels. ??For accurate Potassium quantification in these patients send serum separator tube (gold top) for subsequent determinations. ??Contact the Clinical Chemistry Laboratory if there are any questions. Chloride 97(L) 98 - 107 mmol/L [facility] Carbon Dioxide 14(L) 22 - 31 mmol/L [facility] Anion Gap 20(H) 5 - 15 mmol/L [facility] Calcium 8.6 8.5 - 10.5 mg/dL [facility] Protein, Total 6.3 6.1 - 8.0 g/dL [facility] Albumin 3.5 3.2 - 5.2 g/dL [facility] Aspartate Aminotransferase 1,435(H) 0 - 30 unit/L [facility] Alanine Aminotransferase 1,174(H) 0 - 30 unit/L [facility] Alkaline Phosphatase 100 35 - 105 unit/L [facility] Bilirubin, Total 0.9 0.2 - 1.3 mg/dL [facility] Est Glomerular Filtration Rate 27(L) [...] MD CHEMISTRY ORDERABL ES Performing Organization Address City/[facility] Co de Phone Number [facility] [place] [address] * (ABNORMAL) Coox2 (05/12/2023 5:08 AM EDT) pO2, Coox 24 mmHg [facility] Hgb Blood Gas 10.4(L) 11.7 - 15.5 g/dL [facility] Oxyhemoglobin, Coox 30.7 % [facility] Carboxyhemoglo bin, Coox 0.3 % [facility] Comment: Nonsmokers: 0.5-1.5% COHB Smokers: Variable, but usually less than 10% Toxic: 20-30% COHB Lethal: Greater than 60% COHB Methemoglobin, Coox 0.8 <=1.5 % [facility] Source Coox Mixed Venous [facility] Blood 05/12/2023 5:08 AM EDT 05/12/2023 5:08 AM EDT Radha Hollins MD POINT OF CARE TEST ORDERABLES Performing Organization Address City/[facility] Co de Phone Number [facility] [place] [address] * (ABNORMAL) Coox2 (05/12/2023 3:21 AM EDT) pO2, Coox 25 mmHg [facility] Hgb Blood Gas 10.8(L) 11.7 - 15.5 g/dL [facility] Oxyhemoglobin, Coox 32.7 % [facility] Carboxyhemoglo bin, Coox 0.3 % [facility] Comment: Nonsmokers: 0.5-1.5% COHB Smokers: Variable, but usually less than 10% Toxic: 20-30% COHB Lethal: Greater than 60% COHB Methemoglobin, Coox 0.7 <=1.5 % [facility] Source Coox Mixed Venous [facility] Blood 05/12/2023 3:21 AM EDT 05/12/2023 3:21 AM EDT Radha Hollins MD POINT OF CARE TEST ORDERABLES [facility] [place] [address] * (ABNORMAL) BLOOD GAS 2 ARTERIAL (05/12/2023 3:18 AM EDT) pH, Arterial 7.34(L) 7.35 - 7.45 [facility] PCO2, Arterial 30(L) 35 - 45 mmHg [facility] PO2, Arterial 72(L) 85 - 104 mmHg [facility] Bicarbonate, Arterial 16.0(L) 20.0 - 26.0 mmol/L [facility] Base Excess, Arterial -9.8(L) -3.0 - 3.0 mmol/L [facility] Hgb Blood Gas 11.0(L) 11.7 - 15.5 g/dL [facility] Oxyhemoglobin, Arterial 89.8(L) 94.0 - 97.0 % [facility] Carboxyhemoglob in, Arterial 0.3 % [facility] Comment: Nonsmokers: 0.5-1.5% COHB Smokers: Variable, but usually less than 10% Toxic: 20-30% COHB Lethal: Greater than 60% COHB Methemoglobin, Arterial 0.7 <=1.5 % [facility] Na Whole Blood 131(L) 135 - 145 mmol/L [facility] K Whole Blood 4.2 3.5 - 5.0 mmol/L [facility] Comment: Please note: Patients with WBC >100,000 may have falsely elevated Potassium levels. Contact the Clinical Chemistry Laboratory if there are any questions. ICa Whole Blood 1.12(L) 1.15 - 1.33 mmol/L [facility] Comment: Note: ??Total bilirubin higher than 20 mg/dL may lead to falsely low ionized calcium. CL Whole Blood 100 98 - 107 mmol/L [facility] Gluc Whole Bld 160 65 - 199 mg/dL [facility] Comment:Diabetes: >=200 mg/d L plus symptoms. Lactate WB 2.7(H) 0.5 - 2.2 mmol/L [facility] Flow Art 5.0 LPM [facility] Blood 05/12/2023 3:18 AM EDT 05/12/2023 3:18 AM EDT Radha Hollins MD POINT OF CARE TEST ORDERABLES Performing Organization Address [facility] Co de Phone Number [facility] [place] [address] * (ABNORMAL) Coox2 (05/12/2023 1:14 AM EDT) pO2, Coox 28 mmHg [facility] Hgb Blood Gas 10.9(L) 11.7 - 15.5 g/dL [facility] Oxyhemoglobin, Coox 37.3 % [facility] Carboxyhemoglo bin, Coox 0.3 % [facility] Comment: Nonsmokers: 0.5-1.5% COHB Smokers: Variable, but usually less than 10% Toxic: 20-30% COHB Lethal: Greater than 60% COHB Methemoglobin, Coox 0.5 <=1.5 % [facility] Source Coox Mixed Venous [facility] Blood 05/12/2023 1:14 AM EDT 05/12/2023 1:14 AM EDT Radha Hollins MD POINT OF CARE TEST ORDERABLES Performing Organization Address [facility] Co de Phone Number [facility] [place] [address] * (ABNORMAL) BLOOD GAS 2 ARTERIAL (05/12/2023 1:06 AM EDT) pH, Arterial 7.34(L) 7.35 - 7.45 [facility] PCO2, Arterial 30(L) 35 - 45 mmHg [facility] PO2, Arterial 81(L) 85 - 104 mmHg [facility] Bicarbonate, Arterial 15.7(L) 20.0 - 26.0 mmol/L [facility] Base Excess, Arterial -10.1(L) -3.0 - 3.0 mmol/L [facility] Hgb Blood Gas 11.0(L) 11.7 - 15.5 g/dL [facility] Oxyhemoglobin, Arterial 92.3(L) 94.0 - 97.0 % [facility] Carboxyhemoglob in, Arterial 0.2 % [facility] Comment: Nonsmokers: 0.5-1.5% COHB Smokers: Variable, but usually less than 10% Toxic: 20-30% COHB Lethal: Greater than 60% COHB Methemoglobin, Arterial 0.6 <=1.5 % [facility] Na Whole Blood 131(L) 135 - 145 mmol/L [facility] K Whole Blood 4.2 3.5 - 5.0 mmol/L [facility] Comment: Please note: Patients with WBC >100,000 may have falsely elevated Potassium levels. Contact the Clinical Chemistry Laboratory if there are any questions. ICa Whole Blood 1.13(L) 1.15 - 1.33 mmol/L [facility] Comment: Note: ??Total bilirubin higher than 20 mg/dL may lead to falsely low ionized calcium. CL Whole Blood 99 98 - 107 mmol/L [facility] Gluc Whole Bld 132 65 - 199 mg/dL [facility] Comment:Diabetes: >=200 mg/d L plus symptoms. Lactate WB 2.7(H) 0.5 - 2.2 mmol/L [facility] Flow Art 5.0 LPM [facility] Blood 05/12/2023 1:06 AM EDT 05/12/2023 1:06 AM EDT Radha Hollins MD POINT OF [place] [address] * (ABNORMAL) Differential, Automated (05/12/2023 1:05 AM EDT) Neutrophil % 83.3 % [facility] Neutrophil Absolute 7.49(H) 1.70 - 6.10 x10(3)/mc L [facility] Lymph % 7.1 % [facility] Lymphocytes Abs 0.6(L) 0.9 - 3.2 x10(3)/mc L [facility] Monocyte % 8.9 % [facility] Monocyte Abs 0.8 0.3 - 0.9 x10(3)/mc L [facility] Eos % 0.0 % [facility] Eosinophils Abs 0.0 0.0 - 0.4 x10(3)/mc L [facility] Basophil % 0.1 % [facility] Baso Absolute 0.0 0.0 - 0.1 x10(3)/mc L [facility] Immature Gran % 0.60 % [facility] Comment: Immature granulocytes(IG's)percentage and absolute count will include metamyelocytes, myelocytes, and promyelocytes. Blood smears from CBCs yielding IG's will be scanned manually for concordance. If this scan disagrees with the automated IG or if promyelocytes are noted, a manual differential will be performed. Immature Gran Absolute 0.05(H) 0.00 - 0.04 x10(3)/mc L [facility] Blood 05/12/2023 1:05 AM EDT 05/12/2023 1:15 AM EDT Narrative Resulting Agency Comment Spec In Lab Gianni Fletcher MD [place] [address] * (ABNORMAL) Hemogram (05/12/2023 1:05 AM EDT) White Blood Cell 9.0 4.0 - 9.5 x10(3)/mc L [facility] Red Blood Cell 3.01(L) 4.00 - 5.21 x10(6)/mc L [facility] Hemoglobin 9.8(L) 11.7 - 15.5 g/dL [facility] Hematocrit 28.7(L) 35.7 - 45.8 % [facility] Mean Cell Volume 95.3(H) 82.6 - 94.4 fL [facility] Mean Cell Hemoglobin 32.6(H) 27.1 - 32.0 pg [facility] Mean Cell Hemoglobin Concentration 34.1 31.7 - 35.0 g/dL [facility] Platelet 186 145 - 357 x10(3)/mc L [facility] RDW Standard Deviation 43.7 37.0 - 46.0 fL [facility] RDW coefficient of variation 12.7 11.5 - 14.1 % [facility] Mean Platelet Volume 10.3 7.6 - 12.9 fL [facility] NRBC% auto 0.0 % [facility] NRBC Absolute 0.000 0.000 - 0.000 x10(3)/ L [facility] Blood 05/12/2023 1:05 AM EDT 05/12/2023 1:15 AM EDT Narrative Resulting Agency Comment Spec In Lab Gianni Fletcher MD HEMATOLOGY ORDERABLE S [facility] [place] [address] * (ABNORMAL) Comprehensive metabolic panel (non-fasting) (05/12/2023 1:05 AM EDT) Glucose 141 65 - 199 mg/dL [facility] Comment:Diabetes: >=200 mg/d L plus symptoms Blood Urea Nitrogen 63(H) 8 - 18 mg/dL [facility] Creatinine 1.86(H) 0.70 - 1.20 mg/dL [facility] Sodium 131(L) 135 - 145 mmol/L [facility] Potassium 4.4 3.5 - 5.0 mmol/L [facility] Comment: Please note: ??Patients with WBC >100,000 may have falsely elevated Potassium levels. ??For accurate Potassium quantification in these patients send serum separator tube (gold top) for subsequent determinations. ??Contact the Clinical Chemistry Laboratory if there are any questions. Chloride 96(L) 98 - 107 mmol/L [facility] Carbon Dioxide 14(L) 22 - 31 mmol/L [facility] Anion Gap 21(H) 5 - 15 mmol/L [facility] Calcium 9.0 8.5 - 10.5 mg/dL [facility] Protein, Total 6.6 6.1 - 8.0 g/dL [facility] Albumin 3.9 3.2 - 5.2 g/dL [facility] Aspartate Aminotransferase 1,227(H) 0 - 30 unit/L [facility] Alanine Aminotransferase 1,097(H) 0 - 30 unit/L [facility] Alkaline Phosphatase 108(H) 35 - 105 unit/L [facility] Bilirubin, Total 1.0 0.2 - 1.3 mg/dL [facility] Est Glomerular Filtration Rate 29(L) >=60 mL/min/1. 73 m?? [facility] Comment: This patient's estimated [...] Lab Radha Hollins MD CHEMISTRY ORDERABL ES [facility] [place] [address] * XR Chest One View (05/12/2023 1:00 [...] who have questions please contact the health residential caregiver that requested your imaging first. ? [...] patients who have questions please contactthe health residential caregiver that requested your imaging first. Radha Hollins MD IMG DX ORDERABLES * (ABNORMAL) Coox2 (05/12/2023 12:30 AM EDT) pO2, Coox 22 mmHg [facility] Hgb Blood Gas 10.9(L) 11.7 - 15.5 g/dL [facility] Oxyhemoglobin, Coox 25.1 % [facility] Carboxyhemoglo bin, Coox 0.3 % [facility] Comment: Nonsmokers: 0.5-1.5% COHB Smokers: Variable, but usually less than 10% Toxic: 20-30% COHB Lethal: Greater than 60% COHB Methemoglobin, Coox 1.4 <=1.5 % [facility] Source Coox Mixed Venous [facility] Blood 05/12/2023 12:3 0 AM EDT 05/12/2023 12:30 AM EDT Radha Hollins MD POINT [place] [address] * XR Chest One View (05/11/2023 11:45 [...] who have questions please contact the health residential caregiver that requested your imaging first. ? [...] patients who have questions please contactthe health residential caregiver that requested your imaging first. Radha Hollins MD IMG DX ORDERABLES * (ABNORMAL) Lactate, whole blood, [place] to lab [place] (05/11/2023 7:40 PM EDT) Pathologist [facility] Lactate WB 4.8(Critic al) 0.5 - 2.2 mmol/L [facility] Comment:Called by: [facility], Read back by: Magdalena Baires, Date/Time:05/11/23 19:54. Blood 05/11/2023 7:40 PM EDT 05/11/2023 7:49 PM EDT Narrative Resulting Agency Comment Spec In Lab Radha Hollins MD CHEMISTRY ORDERABL ES [facility] [place] [address] * Urine culture (05/11/2023 7:22 PM EDT) Pathologist [facility] Urine Culture 50,000-99,000 cfu/ml Normal mucosal herman Susceptibilit y testing not routinely performed for Coagulase Negative Staphylococcu s species and other Gram Positive organisms from urine. [facility] Clean Catch Urine 05/11/2023 7:22 PM EDT 05/11/2023 8:50 PM EDT Narrative Resulting Agency Comment Spec In Lab Brody Kaplan APRN MICROBIOLOGY - GENE RAL ORDERABLES Performing Organization Address [facility] Co de Phone Number [facility] [place] [address] * (ABNORMAL) Urinalysis Microscopic Exam (05/11/2023 7:22 PM EDT) RBC, Urine 2 0 - 4 /HPF [facility] WBC, Urine >100(H) 0 - 5 /HPF [facility] Bacteria, Urine Occasional (A) None /HPF [facility] Squamous Epithelial Cells Raw Data, Urine 5(H) <=4 /HPF [facility] Hyaline Casts, Urine 3(H) 0 - 2 /LPF [facility] Clean Catch Urine 05/11/2023 7:22 PM EDT 05/11/2023 7:31 PM EDT Narrative Resulting Agency Comment Spec In Lab Brody Kaplan TELEMARKETER SUPERVISOR URINE ORDERABLES Performing Organization Address [facility] de Phone Number [facility] [place] [address] * (ABNORMAL) Urinalysis with reflex Culture (05/11/2023 7:22 PM EDT) Glucose, Urine Dipstick Negative Negative mg/dL [facility] Protein, Urine Dipstick Trace(A) Negative mg/dL [facility] Bilirubin, Urine Dipstick Negative Negative mg/dL [facility] Comment: Clinical correlation required for positive Urine Bilirubin results as false positive may occur with some drugs and drug related products. If a false positive is suspected a serum total bilirubin should be considered if clinically indicated. Urobilinogen, Urine Dipstick Normal Normal mg/dL [facility] pH, Urn (dipstick) 5.0 5.0 - 8.0 [facility] Blood, Urine Dipstick Trace(A) Negative mg/dL [facility] Ketone, Urine Dipstick Negative Negative mg/dL [facility] Nitrite, Urine Dipstick Negative Negative [facility] Leukocytes, Urine Dipstick Moderate(A) Negative mcL [facility] Appearance, Urine Dipstick Cloudy(A) Clear [facility] Specific [place] Urine Automated >=1.030(A) 1.005 - 1.030 [facility] Color, Urine Dipstick Yellow Yellow [facility] Reflex to Culture Yes [facility] Clean Catch Urine 05/11/2023 7:22 PM EDT 05/11/2023 7:31 PM EDT Narrative Resulting Agency Comment Spec In Lab Brody Kaplan APRN URINE ORDERABLES Performing Organization Address [facility]/ZIP Co de Phone Number [facility] [place] [address] * (ABNORMAL) pro-Brain Natriuretic Peptide (05/11/2023 7:11 PM EDT) NT-proBNP >35,000(H) <=124 pg/mL [facility] Blood 05/11/2023 7:11 PM EDT 05/11/2023 7:26 PM EDT Narrative Resulting Agency Comment Spec In Lab Radha Hollins MD CHEMISTRY ORDERABL ES Performing Organization Address [facility] Co de Phone Number [facility] [place] [address] * (ABNORMAL) Lactate, whole blood, send to lab ([facility] (05/11/2023 2:47 PM EDT) Lactate WB 2.9(H) 0.5 - 2.2 mmol/L [facility] Blood 05/11/2023 2:47 PM EDT 05/11/2023 2:53 PM EDT Narrative Resulting Agency Comment Spec In Lab Juan Luis Gonzalez MD CHEMISTRY ORDERABLES Performing Organization Address [facility]/ZIP Co de Phone Number [facility] [place] [address] * (ABNORMAL) CT Angiogram Abdomen & Pelvis [...] who have questions please contact the health residential caregiver that requested your imaging first. ? [...] who have questions please contact the health residential caregiver that requested your imaging first. ? [...] 610 mm2 Circumference: 88 mm Calcification: Mild Qbokgim-uz-glplgcqf height: Left: 6.2 mm Right: 5.8 mm THORACIC AORTA Description: Normal course and caliber. ??Mild diffuse atherosclerotic changes. No acute aortopathy noted. Shipmaster dimensions: Aortic root: 27.6 mm Max ascending aorta: 30.5 mm x 27.7 mm Suggested fluoroscopic angulation based on line extending through the nadirs of the three sinuses of Valsalva, set equidistant: ?? RWANDAN ??9 degrees; cranial 7 degrees MITRAL: Mitral [...] 610 mm2 Circumference: 88 mm Calcification: Mild Sibbpxt-bm-ziqlirgw height: Left: 6.2 mm Right: 5.8 mm THORACIC AORTA Description: Normal course and caliber. Mild diffuse atheroscleroticchanges. No acute aortopathy noted. Shipmaster dimensions: Aortic root: 27.6 mm Max ascending aorta: 30.5 mm x 27.7 mm Suggested fluoroscopic angulation based on line extending through thenadirs of the three sinuses of Valsalva, set equidistant: RWANDAN 9 degrees; cranial 7 degrees MITRAL: Mitral [...] patients who have questions please contactthe health residential caregiver that requested your imaging first. Antelmo Sharma MD [facility] CT ORDERABLES * (ABNORMAL) Lactate, whole blood, send to lab ([facility] (05/11/2023 9:29 AM EDT) Lactate WB 3.1(H) 0.5 - 2.2 mmol/L [facility] Blood 05/11/2023 9:29 AM EDT 05/11/2023 9:38 AM EDT Narrative Resulting Agency Comment Spec In Lab Juan Luis Gonzalez MD CHEMISTRY ORDERABLES Performing Organization Address City/[facility]/ZIP Co de Phone Number [facility] [place] [address] * (ABNORMAL) Differential, Automated (05/11/2023 4:42 AM EDT) Neutrophil % 78.1 % [facility] Neutrophil Absolute 5.46 1.70 - 6.10 x10(3)/mc L [facility] Lymph % 10.6 % [facility] Lymphocytes Abs 0.7(L) 0.9 - 3.2 x10(3)/mc L [facility] Monocyte % 9.6 % [facility] Monocyte Abs 0.7 0.3 - 0.9 x10(3)/mc L [facility] Eos % 0.0 % [facility] Eosinophils Abs 0.0 0.0 - 0.4 x10(3)/mc L [facility] Basophil % 0.4 % [facility] Baso Absolute 0.0 0.0 - 0.1 x10(3)/mc L [facility] Immature Gran % 1.30 % [facility] Comment: Immature granulocytes(IG's)percentage and absolute count will include metamyelocytes, myelocytes, and promyelocytes. Blood smears from CBCs yielding IG's will be scanned manually for concordance. If this scan disagrees with the automated IG or if promyelocytes are noted, a manual differential will be performed. Immature Gran Absolute 0.09(H) 0.00 - 0.04 x10(3)/mc L [facility] Blood 05/11/2023 4:42 AM EDT 05/11/2023 4:49 AM EDT Narrative Resulting Agency Comment Spec In Lab Klaudia Reid MD HEMATOLOGY OR DERABLES [facility] [place] [address] * (ABNORMAL) Hemogram (05/11/2023 4:42 AM EDT) White Blood Cell 7.0 4.0 - 9.5 x10(3)/mc L [facility] Red Blood Cell 3.44(L) 4.00 - 5.21 x10(6)/mc L [facility] Hemoglobin 11.1(L) 11.7 - 15.5 g/dL [facility] Hematocrit 32.7(L) 35.7 - 45.8 % [facility] Mean Cell Volume 95.1(H) 82.6 - 94.4 fL [facility] Mean Cell Hemoglobin 32.3(H) 27.1 - 32.0 pg [facility] Mean Cell Hemoglobin Concentration 33.9 31.7 - 35.0 g/dL [facility] Platelet 165 145 - 357 x10(3)/mc L [facility] RDW Standard Deviation 43.1 37.0 - 46.0 fL [facility] RDW coefficient of variation 12.7 11.5 - 14.1 % [facility] Mean Platelet Volume 10.1 7.6 - 12.9 fL [facility] NRBC% auto 0.0 % [facility] NRBC Absolute 0.000 0.000 - 0.000 x10(3)/ L [facility] Blood 05/11/2023 4:42 AM EDT 05/11/2023 4:49 AM EDT Narrative Resulting Agency Comment Spec In Lab Klaudia Reid MD HEMATOLOGY OR DERABLES [facility] [place] [address] * Heparin (unfractionated) Level (05/11/2023 4:42 AM EDT) UF Heparin 0.46 IU/mL [facility] Comment: Heparin (anti-Xa) levels [...] Lab Radha Hollins MD HEMATOLOGY ORDERAB LES [facility] [place] [address] * (ABNORMAL) Comprehensive metabolic panel (non-fasting) (05/11/2023 4:42 AM EDT) Glucose 143 65 - 199 mg/dL [facility] Comment:Diabetes: >=200 mg/d L plus symptoms Blood Urea Nitrogen 42(H) 8 - 18 mg/dL [facility] Creatinine 1.24(H) 0.70 - 1.20 mg/dL [facility] Sodium 134(L) 135 - 145 mmol/L [facility] Potassium 4.6 3.5 - 5.0 mmol/L [facility] Comment: Please note: ??Patients with WBC >100,000 may have falsely elevated Potassium levels. ??For accurate Potassium quantification in these patients send serum separator tube (gold top) for subsequent determinations. ??Contact the Clinical Chemistry Laboratory if there are any questions. Chloride 99 98 - 107 mmol/L [facility] Carbon Dioxide 14(L) 22 - 31 mmol/L [facility] Anion Gap 21(H) 5 - 15 mmol/L [facility] Calcium 9.6 8.5 - 10.5 mg/dL [facility] Protein, Total 7.2 6.1 - 8.0 g/dL [facility] Albumin 3.7 3.2 - 5.2 g/dL [facility] Aspartate Aminotransferase 144(H) 0 - 30 unit/L [facility] Comment:result rechecked-ssc Alanine Aminotransferase 130(H) 0 - 30 unit/L [facility] Comment:result rechecked-ssc Alkaline Phosphatase 72 35 - 105 unit/L [facility] Bilirubin, Total 0.8 0.2 - 1.3 mg/dL [facility] Est Glomerular Filtration Rate 48(L) >=60 mL/min/1. 73 m?? [facility] Comment: This patient's estimated [...] Lab Radha Hollins MD CHEMISTRY ORDERABL ES [facility] [place] [address] * EKG 12 Lead (05/10/2023 1:16 PM EDT) Ventricular rate 118 BPM MUSE SYSTEM Atrial Rate 118 BPM MUSE SYSTEM P-R Interval 152 ms MUSE SYSTEM QRS Duration 104 ms MUSE SYSTEM Q-T Interval 316 ms MUSE SYSTEM QTC Calculated (Bezet) 442 ms MUSE SYSTEM Calculated P [place] 29 degrees MUSE SYSTEM Calculated R [place] 18 degrees MUSE SYSTEM Calculated T [place] -173 degrees MUSE SYSTEM INTERPRETATION Sinus tachycardia Minimal voltage criteria for LVH, may be normal variant ( [place] product ) Septal infarct , age undetermined ST & T wave abnormality, consider lateral ischemia Abnormal ECG When compared with ECG of 10-MAY-2023 07:59, Fusion complexes are no longer Present Premature ventricular complexes are no longer Present ST no longer depressed in Anterior leads Confirmed by MD Villareal Danette ([id number]) on 05/10/2023 8:47:46 PM MUSE SYSTEM 05/10/2023 1:16 PM EDT 05/10/2023 8:47 PM EDT Juan Luis Gonzalez MD ECG ORDERABLES MUSE SYSTEM * Lactate, whole blood, send to lab [place] (05/10/2023 11:52 AM EDT) Lactate WB 1.8 0.5 - 2.2 mmol/L [facility] Blood 05/10/2023 11:5 2 AM EDT 05/10/2023 12:13 PM EDT Narrative Resulting Agency Comment Spec In Lab Juan Luis Gonzalez MD CHEMISTRY ORDERABLES Performing Organization Address City/[facility] Co de Phone Number [facility] [place] [address] * XR Chest One View (05/10/2023 11:16 [...] who have questions please contact the health residential caregiver that requested your imaging first. ? [...] patients who have questions please contactthe health residential caregiver that requested your imaging first. Juan Luis Gonzalez MD IMG DX ORDERABLES * EKG 12 Lead (05/10/2023 7:59 AM EDT) Ventricular rate 115 BPM MUSE SYSTEM Atrial Rate 115 BPM MUSE SYSTEM P-R Interval 142 ms MUSE SYSTEM QRS Duration 102 ms MUSE SYSTEM Q-T Interval 322 ms MUSE SYSTEM QTC Calculated (Bezet) 445 ms MUSE SYSTEM Calculated P [place] 36 degrees MUSE SYSTEM Calculated R [place] 28 degrees MUSE SYSTEM Calculated T [place] -119 degrees MUSE SYSTEM INTERPRETATION Sinus tachycardia with frequent Premature ventricular complexes and Fusion complexes ST & T wave abnormality, consider lateral ischemia Abnormal ECG When compared with ECG of 08-MAY-2023 15:51, No significant change was found I personally reviewed the tracing and edited the fellows interpretation Confirmed by fellow MD Anitha, Carissa ([id number]) on 05/11/2023 6:19:54 AM Confirmed by MD Tram, Chel ([id number]) on 05/11/2023 3:18:56 PM MUSE SYSTEM 05/10/2023 7:59 AM EDT 05/11/2023 3:18 PM EDT Radha Hollins MD ECG ORDERABLES MUSE SYSTEM * (ABNORMAL) Differential, Automated (05/10/2023 2:28 AM EDT) Neutrophil % 77.1 % [facility] Neutrophil Absolute 4.01 1.70 - 6.10 x10(3)/mc L [facility] Lymph % 14.0 % [facility] Lymphocytes Abs 0.7(L) 0.9 - 3.2 x10(3)/mc L [facility] Monocyte % 7.7 % [facility] Monocyte Abs 0.4 0.3 - 0.9 x10(3)/mc L [facility] Eos % 0.4 % [facility] Eosinophils Abs 0.0 0.0 - 0.4 x10(3)/mc L [facility] Basophil % 0.4 % [facility] Baso Absolute 0.0 0.0 - 0.1 x10(3)/mc L [facility] Immature Gran % 0.40 % [facility] Comment: Immature granulocytes(IG's)percentage and absolute count will include metamyelocytes, myelocytes, and promyelocytes. Blood smears from CBCs yielding IG's will be scanned manually for concordance. If this scan disagrees with the automated IG or if promyelocytes are noted, a manual differential will be performed. Immature Gran Absolute 0.02 0.00 - 0.04 x10(3)/mc L [facility] Blood 05/10/2023 2:28 AM EDT 05/10/2023 2:57 AM EDT Narrative Resulting Agency Comment Spec In Lab Klaudia Reid MD HEMATOLOGY OR DERABLES Performing Organization Address City/[facility]/ZIP Co de Phone Number [facility] [place] [address] * (ABNORMAL) Hemogram (05/10/2023 2:28 AM EDT) White Blood Cell 5.2 4.0 - 9.5 x10(3)/mc L [facility] Red Blood Cell 3.11(L) 4.00 - 5.21 x10(6)/mc L [facility] Hemoglobin 10.2(L) 11.7 - 15.5 g/dL [facility] Hematocrit 30.2(L) 35.7 - 45.8 % [facility] Mean Cell Volume 97.1(H) 82.6 - 94.4 fL [facility] Mean Cell Hemoglobin 32.8(H) 27.1 - 32.0 pg [facility] Mean Cell Hemoglobin Concentration 33.8 31.7 - 35.0 g/dL [facility] Platelet 151 145 - 357 x10(3)/mc L [facility] RDW Standard Deviation 44.9 37.0 - 46.0 fL [facility] RDW coefficient of variation 12.8 11.5 - 14.1 % [facility] Mean Platelet Volume 9.8 7.6 - 12.9 fL [facility] NRBC% auto 0.0 % [facility] NRBC Absolute 0.000 0.000 - 0.000 x10(3)/mc L [facility] Blood 05/10/2023 2:28 AM EDT 05/10/2023 2:57 AM EDT Narrative Resulting Agency Comment Spec In Lab Klaudia Reid MD HEMATOLOGY OR DERABLES Performing Organization Address City/[facility] Co de Phone Number [facility] [place] [address] * (ABNORMAL) Comprehensive metabolic panel (non-fasting) (05/10/2023 2:28 AM EDT) Glucose 100 65 - 199 mg/dL [facility] Comment:Diabetes: >=200 mg/d L plus symptoms Blood Urea Nitrogen 30(H) 8 - 18 mg/dL [facility] Creatinine 0.90 0.70 - 1.20 mg/dL [facility] Sodium 134(L) 135 - 145 mmol/L [facility] Potassium 4.1 3.5 - 5.0 mmol/L [facility] Comment: Please note: ??Patients with WBC >100,000 may have falsely elevated Potassium levels. ??For accurate Potassium quantification in these patients send serum separator tube (gold top) for subsequent determinations. ??Contact the Clinical Chemistry Laboratory if there are any questions. Chloride 102 98 - 107 mmol/L [facility] Carbon Dioxide 20(L) 22 - 31 mmol/L [facility] Anion Gap 12 5 - 15 mmol/L [facility] Calcium 9.3 8.5 - 10.5 mg/dL [facility] Protein, Total 6.4 6.1 - 8.0 g/dL [facility] Albumin 3.7 3.2 - 5.2 g/dL [facility] Aspartate Aminotransferase 24 0 - 30 unit/L [facility] Alanine Aminotransferase 14 0 - 30 unit/L [facility] Alkaline Phosphatase 70 35 - 105 unit/L [facility] Bilirubin, Total 0.5 0.2 - 1.3 mg/dL [facility] Est Glomerular Filtration Rate 70 >=60 mL/min/1. 73 m?? [facility] Comment: This patient's estimated [...] MD CHEMISTRY ORDERABL ES Performing Organization Address [facility] [place] [address] * Heparin (unfractionated) Level (05/10/2023 2:28 AM EDT) Pathologist [facility] UF Heparin 0.37 IU/mL [facility] Comment: Heparin (anti-Xa) levels should [...] MD HEMATOLOGY ORDERAB LES Performing Organization Address [facility] [place] [address] * (ABNORMAL) Differential, Automated (05/09/2023 4:00 AM EDT) Neutrophil % 81.7 % [facility] Neutrophil Absolute 5.26 1.70 - 6.10 x10(3)/mc L [facility] Lymph % 10.7 % [facility] Lymphocytes Abs 0.7(L) 0.9 - 3.2 x10(3)/mc L [facility] Monocyte % 6.5 % [facility] Monocyte Abs 0.4 0.3 - 0.9 x10(3)/mc L [facility] Eos % 0.5 % [facility] Eosinophils Abs 0.0 0.0 - 0.4 x10(3)/mc L [facility] Basophil % 0.3 % [facility] Baso Absolute 0.0 0.0 - 0.1 x10(3)/mc L [facility] Immature Gran % 0.30 % [facility] Comment: Immature granulocytes(IG's)percentage and absolute count will include metamyelocytes, myelocytes, and promyelocytes. Blood smears from CBCs yielding IG's will be scanned manually for concordance. If this scan disagrees with the automated IG or if promyelocytes are noted, a manual differential will be performed. Immature Gran Absolute 0.02 0.00 - 0.04 x10(3)/ L [facility] Blood 05/09/2023 4:00 AM EDT 05/09/2023 4:19 AM EDT Narrative Resulting Agency Comment Spec In Lab Klaudia Reid MD HEMATOLOGY OR DERABLES Performing Organization Address City/State/[facility] Co de Phone Number [facility] [place] [address] * (ABNORMAL) Hemogram (05/09/2023 4:00 AM EDT) White Blood Cell 6.4 4.0 - 9.5 x10(3)/ L [facility] Red Blood Cell 3.15(L) 4.00 - 5.21 x10(6)/mc L [facility] Hemoglobin 10.2(L) 11.7 - 15.5 g/dL [facility] Hematocrit 30.3(L) 35.7 - 45.8 % [facility] Mean Cell Volume 96.2(H) 82.6 - 94.4 fL [facility] Mean Cell Hemoglobin 32.4(H) 27.1 - 32.0 pg [facility] Mean Cell Hemoglobin Concentration 33.7 31.7 - 35.0 g/dL [facility] Platelet 151 145 - 357 x10(3)/ L [facility] RDW Standard Deviation 44.7 37.0 - 46.0 fL [facility] RDW coefficient of variation 12.8 11.5 - 14.1 % [facility] Mean Platelet Volume 9.4 7.6 - 12.9 fL [facility] NRBC% auto 0.0 % [facility] NRBC Absolute 0.000 0.000 - 0.000 x10(3)/mc L [facility] Blood 05/09/2023 4:00 AM EDT 05/09/2023 4:19 AM EDT Narrative Resulting Agency Comment Spec In Lab Klaudia Reid MD HEMATOLOGY OR DERABLES Performing Organization Address [facility] Co de Phone Number [facility] [place] [address] * Heparin (unfractionated) Level (05/09/2023 4:00 AM EDT) UF Heparin 0.47 IU/mL [facility] Comment: Heparin (anti-Xa) levels should be [...] MD HEMATOLOGY ORDERAB LES Performing Organization Address [facility] Co de Phone Number [facility] [place] [address] * (ABNORMAL) Comprehensive metabolic panel (non-fasting) (05/09/2023 4:00 AM EDT) Glucose 108 65 - 199 mg/dL [facility] Comment:Diabetes: >=200 mg/d L plus symptoms Blood Urea Nitrogen 31(H) 8 - 18 mg/dL [facility] Creatinine 1.03 0.70 - 1.20 mg/dL [facility] Sodium 137 135 - 145 mmol/L [facility] Potassium 4.4 3.5 - 5.0 mmol/L [facility] Comment: Please note: ??Patients with WBC >100,000 may have falsely elevated Potassium levels. ??For accurate Potassium quantification in these patients send serum separator tube (gold top) for subsequent determinations. ??Contact the Clinical Chemistry Laboratory if there are any questions. Chloride 102 98 - 107 mmol/L [facility] Carbon Dioxide 20(L) 22 - 31 mmol/L [facility] Anion Gap 15 5 - 15 mmol/L [facility] Calcium 9.3 8.5 - 10.5 mg/dL [facility] Protein, Total 6.6 6.1 - 8.0 g/dL [facility] Albumin 3.8 3.2 - 5.2 g/dL [facility] Aspartate Aminotransferase 32(H) 0 - 30 unit/L [facility] Alanine Aminotransferase 18 0 - 30 unit/L [facility] Alkaline Phosphatase 78 35 - 105 unit/L [facility] Bilirubin, Total 0.5 0.2 - 1.3 mg/dL [facility] Est Glomerular Filtration Rate 60 >=60 mL/min/1. 73 m?? [facility] Comment: This patient's estimated [...] Lab Radha Hollins MD CHEMISTRY ORDERABL ES [facility] [place] [address] * (ABNORMAL) pro-Brain Natriuretic Peptide (05/08/2023 4:00 PM EDT) NT-proBNP 25,503(H) <=124 pg/mL [facility] Blood Venous Draw / Unknown 05/08/2023 4:00 PM EDT 05/08/2023 4:25 PM EDT Narrative Resulting Agency Comment Spec In Lab Juan Luis Gonzalez MD CHEMISTRY ORDERABLES [facility] [place] [address] * Magnesium (05/08/2023 4:00 PM EDT) Pathologist [facility] Magnesium 0.82 0.69 - 1.07 mmol/L [facility] Blood 05/08/2023 4:00 PM EDT 05/08/2023 4:06 PM EDT Narrative Resulting Agency Comment Spec In Lab Enrique Chua MD CHEMISTRY ORDERABLES Performing Organization Address [facility]/ZIP Co de Phone Number [facility] [place] [address] * Potassium (05/08/2023 4:00 PM EDT) Pathologist [facility] Potassium 3.9 3.5 - 5.0 mmol/L [facility] Comment: Please note: ??Patients with [...] MD CHEMISTRY ORDERABL ES Performing Organization Address City/[facility]/ZIP Co de Phone Number [facility] [place] [address] * Heparin (unfractionated) Level (05/08/2023 4:00 PM EDT) UF Heparin 0.43 IU/mL [facility] Comment: Heparin (anti-Xa) levels [...] MD HEMATOLOGY ORDERAB LES Performing Organization Address City/State/[facility] Co de Phone Number [facility] [place] [address] * EKG 12 Lead (05/08/2023 3:51 PM EDT) Ventricular rate 98 BPM MUSE SYSTEM Atrial Rate 98 BPM MUSE SYSTEM P-R Interval 150 ms MUSE SYSTEM QRS Duration 102 ms MUSE SYSTEM Q-T Interval 358 ms MUSE SYSTEM QTC Calculated (Bezet) 457 ms MUSE SYSTEM Calculated P [place] 38 degrees MUSE SYSTEM Calculated R [place] 48 degrees MUSE SYSTEM Calculated T [place] -112 degrees MUSE SYSTEM INTERPRETATION Sinus rhythm with frequent and consecutive Premature ventricular and fusion complexes Septal infarct , age undetermined ST & T wave abnormality, consider anterolateral ischemia Abnormal ECG When compared with ECG of 09-NOV-2022 11:17, T wave inversion now evident in Anterolateral leads Confirmed by MD Harshil, Enrique Bell ([id number]) on 05/10/2023 8:11:46 AM MUSE SYSTEM 05/08/2023 3:51 PM EDT 05/10/2023 8:11 AM EDT Radha Hollins MD ECG ORDERABLES MUSE SYSTEM * (ABNORMAL) Differential, Automated (05/08/2023 11:38 AM EDT) Neutrophil % 71.3 % [facility] Neutrophil Absolute 2.91 1.70 - 6.10 x10(3)/mc L [facility] Lymph % 19.1 % [facility] Lymphocytes Abs 0.8(L) 0.9 - 3.2 x10(3)/mc L [facility] Monocyte % 9.0 % [facility] Monocyte Abs 0.4 0.3 - 0.9 x10(3)/mc L [facility] Eos % 0.2 % [facility] Eosinophils Abs 0.0 0.0 - 0.4 x10(3)/mc L [facility] Basophil % 0.2 % [facility] Baso Absolute 0.0 0.0 - 0.1 x10(3)/mc L [facility] Immature Gran % 0.20 % [facility] Comment: Immature granulocytes(IG's)percentage and absolute count will include metamyelocytes, myelocytes, and promyelocytes. Blood smears from CBCs yielding IG's will be scanned manually for concordance. If this scan disagrees with the automated IG or if promyelocytes are noted, a manual differential will be performed. Immature Gran Absolute 0.01 0.00 - 0.04 x10(3)/mc L [facility] Blood 05/08/2023 11:3 8 AM EDT 05/08/2023 11:44 AM EDT Narrative Resulting Agency Comment Spec In Lab Lincoln Sal MD HEMATOLOGY ORDERA BLES [facility] [place] [address] * (ABNORMAL) Hemogram (05/08/2023 11:38 AM EDT) White Blood Cell 4.1 4.0 - 9.5 x10(3)/mc L [facility] Red Blood Cell 3.05(L) 4.00 - 5.21 x10(6)/mc L [facility] Hemoglobin 10.2(L) 11.7 - 15.5 g/dL [facility] Hematocrit 29.6(L) 35.7 - 45.8 % [facility] Mean Cell Volume 97.0(H) 82.6 - 94.4 fL [facility] Mean Cell Hemoglobin 33.4(H) 27.1 - 32.0 pg [facility] Mean Cell Hemoglobin Concentration 34.5 31.7 - 35.0 g/dL [facility] Platelet 136(L) 145 - 357 x10(3)/mc L [facility] RDW Standard Deviation 44.3 37.0 - 46.0 fL [facility] RDW coefficient of variation 12.6 11.5 - 14.1 % [facility] Mean Platelet Volume 9.4 7.6 - 12.9 fL [facility] NRBC% auto 0.0 % [facility] NRBC Absolute 0.000 0.000 - 0.000 x10(3)/[facility] Blood 05/08/2023 11:3 8 AM EDT 05/08/2023 11:44 AM EDT Narrative Resulting Agency Comment Spec In Lab Lincoln Sal MD HEMATOLOGY ORDERA BLES Performing Organization Address City/[facility] Co de Phone Number [facility] [place] [address] * TSH (05/08/2023 11:38 AM EDT) Thyroid Stimulating Hormone 1.27 0.27 - 4.20 mcIU/mL [facility] Comment: Reference Interval (mcIU/mL): Females: ??First Trimester: 0.23-3.88 ??Second Trimester: 0.22-3.90 ??Third Trimester: 0.44-4.66 Blood 05/08/2023 11:3 8 AM EDT 05/08/2023 11:44 AM EDT Narrative Resulting Agency Comment Spec In Lab Enrique Chua MD CHEMISTRY ORDERABLES [facility] [place] [address] * (ABNORMAL) Phosphorus (05/08/2023 11:38 AM EDT) Phosphorus 4.7(H) 2.5 - 4.5 mg/dL [facility] Blood 05/08/2023 11:3 8 AM EDT 05/08/2023 11:44 AM EDT Narrative Resulting Agency Comment Spec In Lab Enrique Chua MD CHEMISTRY ORDERABLES Performing Organization Address City/[facility] Co de Phone Number [facility] [place] [address] * Magnesium (05/08/2023 11:38 AM EDT) Magnesium 0.76 0.69 - 1.07 mmol/L [facility] Blood 05/08/2023 11:3 8 AM EDT 05/08/2023 11:44 AM EDT Narrative Resulting Agency Comment Spec In Lab Enrique Chua MD CHEMISTRY ORDERABLES Performing Organization Address City/[facility] Co de Phone Number [facility] [place] [address] * (ABNORMAL) Basic Metabolic Panel (non-fasting) (05/08/2023 11:38 AM EDT) Glucose 97 65 - 199 mg/dL [facility] Comment:Diabetes: >=200 mg/d L plus symptoms Blood Urea Nitrogen 27(H) 8 - 18 mg/dL [facility] Creatinine 1.02 0.70 - 1.20 mg/dL [facility] Sodium 139 135 - 145 mmol/L [facility] Potassium 4.2 3.5 - 5.0 mmol/L [facility] Comment: Please note: ??Patients with WBC >100,000 may have falsely elevated Potassium levels. ??For accurate Potassium quantification in these patients send serum separator tube (gold top) for subsequent determinations. ??Contact the Clinical Chemistry Laboratory if there are any questions. Chloride 105 98 - 107 mmol/L [facility] Carbon Dioxide 20(L) 22 - 31 mmol/L [facility] Anion Gap 14 5 - 15 mmol/L [facility] Calcium 9.4 8.5 - 10.5 mg/dL [facility] Est Glomerular Filtration Rate 60 >=60 mL/min/1. 73 m?? [facility] Comment: This patient's estimated [...] In Lab Enrique Chua MD CHEMISTRY ORDERABLES [facility] [place] [address] * ECHO COMPLETE (05/08/2023 11:02 AM EDT) EF 25 HEARTLAB SYSTEM Anatomical Region Laterality Modality Cardiac Other 05/08/2023 10:0 3 AM EDT Narrative 05/08/2023 11:51 AM EDT ? Echocardiogram Report Name: PURNIMA THACKER ?Study Date: 05/08/2023 10:03 AMBP: 92/64 mmHg ? Patient Location: [facility]^CV29^A : 1955 ? Height: 155 cm ? Account: [id number] Age: 67 yrs ? Weight: 78 kg Gender: Female ?BSA: 1.8 m2 Ordering Physician: ENRIQUE CHUA Referring Physician: MARIO ALBERTO CHIN Performed By: CHUCKIE Canchola Reason For Study: SAVR Stenosis Exam Location: [facility]. Interpretation Summary -Left ventricle is [...] worsening stenosis. Mitral regurgitation is similar. Procedure Complete-[id number]. Satisfactory quality. There is normal sinus rhythm. [...] Study Date: 0:03 AMBP: 92/64 mmHg Patient Location:[facility]^CV29^A : 1955 Height: 155 cm Account: [id number] Age: 67 yrs Weight: 78 kg Gender: Female BSA: 1.8 m2 Ordering Physician: ENRIQUE CHUA Referring Physician: MARIO ALBERTO CHIN Performed By: CHUCKIE Canchola Reason For Study: SAVR Stenosis Exam Location: [facility]. Interpretation Summary -Left ventricle is [...] suggestsworsening stenosis. Mitral regurgitation is similar. Procedure Complete-[id number]. Satisfactory quality. There is normal sinus rhythm. 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 Rate/Dose Verify 05/17/2023 [...] Discontinued, Routine 0835 (Given - Provider: Gabino Cahloun RN) 0900 (Not Given - Provider: Kia [...] Routine documented in this encounter Care Teams Ambulatory Care Nurse Relationship Specialty Start Date End Date Magdalena Acosta MD [address] [place] [address] PCP - General Family Medicine 02/05/23 documented as of this encounter
--- OUTSIDE RECORDS SUMMARY | 2024-04-06 13:57 | XMS_ITS | Encounter Summary ---
[place] [address] Care Team Providers Care Global Creative Chairman Name Role Phone Magdalena Acosta MD Primary Care Provider [phone] Reason for Visit * Reason Comments Annual Exam Encounter Details Date Type Department Care Team (Late st Contact Info) Description 02/05/2023 2:30 PM EDT Office Visit Dermatology at [address] [phone] Marek Bonilla MD [address] [facility] [place] [address] Rosacea; Ocular rosacea; Nevus Social History Tobacco [...] cutaneous and ocular 2. Previously told by set and exhibit designer that she had corneal tears from her [...] PM EDT Office Visit Dermatology at [address] [phone] Marek Bonilla MD [address] [facility] [place] [address] documented as of this encounter Visit Diagnoses Diagnosis Rosacea Ocular rosacea Rosacea Nevus Benign neoplasm of skin, site unspecified documented in this encounter Care Teams Global Creative Chairman Relationship Specialty Start Date End Date Magdalena Acosta MD [address] [place] [address] PCP - General Family Medicine 02/05/23 documented as of this encounter
--- OUTSIDE RECORDS SUMMARY | 2024-04-06 13:57 | XMS_ITS | Encounter Summary ---
Author Organization [facility] Address [facility] [place] [address] Care Team Providers Care Software Engineer Developer Name Role Phone Deborah Quiroga ANURAG Primary Care Provider [phone] Encounter Details Date Type Department Care Team (Late st Contact Info) Description 01/14/2023 Refill Dermatology at [address] [phone] Lupe Connor RN Social [...] She would like the medication called into [facility] in [facility]. Discussed with Dr. [...] Office Visit Dermatology at [place] [address] [facility] [place] [address] Marek Bonilla MD [address] [place] [address] documented as of this encounter Visit Diagnoses Not on filedocumented in this encounter Care Teams Software Engineer Developer Relationship Specialty Start Date End Date Deborah Quiroga APRN PCP - General Family Medicine 03/24/16 02/04/23 documented as of this encounter
--- OUTSIDE RECORDS SUMMARY | 2024-04-06 13:57 | XMS_ITS | Encounter Summary ---
Author Organization [facility] Address [facility] [place] [address] Care Team Providers Care Interpretative Dancer Name Role Phone Magdalena Acosta MD Primary Care Provider [phone] Encounter Details Date Type Department Care Team (Late st Contact Info) Description 04/27/2023 3:00 PM EDT [place] [address] Magdalena Peralta MD [facility] [place] [address] Mixed connective tissue disease Social History Tobacco [...] 1:5120 speckled; VIC negative; Myositis panel with [employer] ab 149.1 (positive); Anti U1RNP IgG 119; [...] 4:15 PM EDT Office Visit Dermatology at [place] [address] [facility] [place] [phone] Marek Bonilla MD [address] [facility] [place] [address] documented as of this encounter Visit Diagnoses Diagnosis Mixed connective tissue disease Other specified diffuse disease of connective tissue documented in this encounter Care Teams Interpretative Dancer Relationship Specialty Start Date End Date Magdalena Acosta MD [address] [place] [address] PCP - General Family Medicine 02/05/23 documented as of this encounter
--- OUTSIDE RECORDS SUMMARY | 2024-04-06 13:57 | XMS_ITS | Encounter Summary ---
[place] [address] Care Team Providers Care Automobile Or Truck Rental Dispatcher Name Role Phone Magdalena Acosta MD Primary Care Provider [phone] Encounter Details Date Type Department Care Team [...] PM EDT Office Visit Dermatology at [address] [place] [address] Marek Bonilla MD [address] [facility], [place] [address] documented as of this encounter Visit Diagnoses Not on filedocumented in this encounter Care Teams Automobile Or Truck Rental Dispatcher Relationship Specialty Start Date End Date Magdalena Acosta MD [address] [place] [address] PCP - General Family Medicine 02/05/23 documented as of this encounter
--- OUTSIDE RECORDS SUMMARY | 2024-04-06 13:57 | XMS_ITS | Encounter Summary ---
Author Organization [facility] [place] [address] Care Team Providers Care Weapons Officer Name Role Phone Magdalena Acosta MD Primary Care Provider [phone] Encounter Details Date Type Department Care Team (Late st Contact Info) Description 05/08/2023 [place] [id number] Luis Felipe Ott MD [facility] [place] [address] Social History Tobacco Use Types Packs/Day Years [...] 0426 Referring Provider: Nitesh Baltazar Patient Location: [facility] Presenting Symptoms per OSH: 67 year [...] diuresis with IV furosemide 20 x 1 ([id number]/47 at rheumatology appointment), SpO2 85% on RA -> 95% on 2L NC, HR 120s. Examination significant for decreased breath sounds at the bases. Pertinent Diagnostic Findings: CBC - Hgb 10.5 CMP - Cr 1.1 BNP 72984 HsTrop 1358 Lactate 1.6 D-dimer 1183, CTPE pending CXR demonstrated pulmonary vascular congestion US showed bilateral b lines Bedside echo reportedly similar to prior TTE for LV function OSH Interventions: ASA 324 Heparin gtt Plan: Transfer to [facility] Above recommendations/plans are based on my conversation with the referring provider. I have not personally interviewed or examined this patient. Luis Felipe Ott MD Cupola Tender Received a call from provider emergently at 715am. Mentating well and BP 87/53. HR 108 and diursingwell. They were about to start phenylephrine which I stressed was not a good option given concern for severe and increasing afterload. She is warm on exam, mentating and urinating and we do not need to amrit a BP if those things remain stable. Nico Segura, PGY-6 Cupola Tender [id number] documented in this encounter Plan of Treatment Upcoming Encounters Date Type Department Care Team (Late st Contact Info) Description 03/01/2025 4:15 PM EDT Office Visit Dermatology at [place] [address] [facility] [place] [address] Marek Bonilla MD [address] [address], [place] [address] documented as of this encounter Visit Diagnoses Not on filedocumented in this encounter Care Teams Weapons Officer Relationship Specialty Start Date End Date Magdalena Acosta MD [address] [place] [address] PCP - General Family Medicine 02/05/23 documented as of this encounter
--- OUTSIDE RECORDS SUMMARY | 2024-04-06 13:57 | XMS_ITS | Encounter Summary ---
[place] [address] Care Team Providers Care Aerial Photographer Name Role Phone Magdalena Acosta MD Primary Care Provider [phone] Encounter Details Date Type Department Care Team [...] PM EDT Office Visit Dermatology at [address] [place] [address] Marek Bonilla MD [address] [facility], [place] [address] documented as of this encounter Visit Diagnoses Not on filedocumented in this encounter Care Teams Aerial Photographer Relationship Specialty Start Date End Date Magdalena Acosta MD [address] [place] [address] PCP - General Family Medicine 02/05/23 documented as of this encounter
--- OUTSIDE RECORDS SUMMARY | 2024-04-06 13:57 | XMS_ITS | Encounter Summary ---
[place] [address] Care Team Providers Care Risk Control Director Name Role Phone Magdalena Acosta MD Primary Care Provider [phone] Reason for Visit * Reason Comments Skin Lesion Encounter Details Date Type Department Care Team (Late st Contact Info) Description 04/20/2023 10:00 AM EDT Office Visit Dermatology at [address] [address] Marek Bonilla MD [address] [facility], [place] [address] Seborrheic keratosis Social History Tobacco Use Types [...] cutaneous and ocular 3. Previously told by tunnel kiln operator that she had corneal tears from [...] 4:15 PM EDT Office Visit Dermatology at [place] [address] [facility] [place] [address] Marek Bonilla MD [address] [facility] [address], [place] [address] documented as of this encounter Visit Diagnoses Diagnosis Seborrheic keratosis Other seborrheic keratosis documented in this encounter Care Teams Risk Control Director Relationship Specialty Start Date End Date Magdalena Acosta MD [address] [place] [address] PCP - General Family Medicine 02/05/23 documented as of this encounter
--- OUTSIDE RECORDS SUMMARY | 2024-04-06 13:57 | XMS_ITS | Encounter Summary ---
[place] [address] Care Team Providers Care Trailer Steerer Name Role Phone Magdalena Acosta MD Primary Care Provider [phone] Encounter Details Date Type Department Care Team [...] PM EDT Office Visit Dermatology at [address] [place] [address] Marek Bonilla MD [address] [facility], [place] [address] documented as of this encounter Visit Diagnoses Not on filedocumented in this encounter Care Teams Trailer Steerer Relationship Specialty Start Date End Date Magdalena Acosta MD [address] [place] [address] PCP - General Family Medicine 02/05/23 documented as of this encounter
--- OUTSIDE RECORDS SUMMARY | 2024-04-06 13:57 | XMS_ITS | Encounter Summary ---
[place] [address] Care Team Providers Care Staff Technologist Name Role Phone Magdalena Acosta MD Primary Care Provider [phone] Reason for Visit * Reason Comments Suture / Staple Removal Encounter Details Date Type Department Care Team (Late st Contact Info) Description 02/16/2023 10:00 AM EDT Office Visit Dermatology at [place] [address] [facility] [place] [address] Marek Bonilla MD [address] [facility], [address] [facility] DERMATOLOGY [place], [place] [id number] Visit for suture removal Social History Tobacco [...] Office Visit Dermatology at [place] [address] [facility] [place] [address] Marek Bonilla MD [address] [facility] [address] [place] [address] documented as of this encounter Visit Diagnoses Diagnosis Visit for suture removal Encounter for removal of sutures documented in this encounter Care Teams Staff Technologist Relationship Specialty Start Date End Date Magdalena Acosta MD [address] [place] [address] PCP - General Family Medicine 02/05/23 documented as of this encounter
--- OUTSIDE RECORDS SUMMARY | 2024-04-06 13:57 | XMS_ITS | Encounter Summary ---
Author Organization [facility] Address [facility] [place] [address] Care Team Providers Care Dinkey Brakeman Name Role Phone Magdalena Acosta MD Primary Care Provider [phone] Encounter Details Date Type Department Care Team (Late st Contact Info) Description 03/29/2023 Orders Only Cardiology at [address] [phone] Ranjan Delgado MD [facility] [place] [address] Severe aortic stenosis (Primary Dx) Social History [...] 4:15 PM EDT Office Visit Dermatology at [place] [address] [facility] [place] [address] Marek Bonilla MD [address] [facility], [place] [address] Scheduled Orders Name Type Priority [...] disorders documented in this encounter Care Teams Dinkey Brakeman Relationship Specialty Start Date End Date Magdalena Acosta MD [address] [place] [address] PCP - General Family Medicine 02/05/23 documented as of this encounter
--- OUTSIDE RECORDS SUMMARY | 2024-04-06 13:57 | XMS_ITS | Encounter Summary ---
[place] [address] Care Team Providers Care Parking Patroller Name Role Phone Magdalena Acosta MD Primary Care Provider [phone] Encounter Details Date Type Department Care Team [...] PM EDT Office Visit Dermatology at [address] [place] [address] Marek Bonilla MD [address] [facility], [place] [address] documented as of this encounter Visit Diagnoses Not on filedocumented in this encounter Care Teams Parking Patroller Relationship Specialty Start Date End Date Magdalena Acosta MD [address] [place] [address] PCP - General Family Medicine 02/05/23 documented as of this encounter
--- OUTSIDE RECORDS SUMMARY | 2024-04-06 13:57 | XMS_ITS | Encounter Summary ---
[place] [address] Care Team Providers Care Aerial Crop Duster Name Role Phone Magdalena Acosta MD Primary Care Provider [phone] Encounter Details Date Type Department Care Team [...] PM EDT Office Visit Dermatology at [address] [place] [address] Marek Bonilla MD [address] [facility], [place] [address] documented as of this encounter Visit Diagnoses Not on filedocumented in this encounter Care Teams Aerial Crop Duster Relationship Specialty Start Date End Date Magdalena Acosta MD [address] [place] [address] PCP - General Family Medicine 02/05/23 documented as of this encounter
--- OUTSIDE RECORDS SUMMARY | 2024-04-06 13:57 | XMS_ITS | Encounter Summary ---
[place] [address] Care Team Providers Care Cast Iron Drain Pipe Layer Name Role Phone Magdalena Acosta MD Primary Care Provider [phone] Encounter Details Date Type Department Care Team [...] PM EDT Office Visit Dermatology at [address] [place] [address] Marek Bonilla MD [address] [facility], [place] [address] documented as of this encounter Visit Diagnoses Not on filedocumented in this encounter Care Teams Cast Iron Drain Pipe Layer Relationship Specialty Start Date End Date Magdalena Acosta MD [address] [place] [address] PCP - General Family Medicine 02/05/23 documented as of this encounter
--- OUTSIDE RECORDS SUMMARY | 2024-04-06 13:57 | XMS_ITS | Encounter Summary ---
Author Organization [facility] [place] [address] Care Team Providers Care Shade Matcher Name Role Phone Magdalena Acosta MD Primary Care Provider [phone] Reason for Referral * Consultation (Routine) - Closed Specialty Diagnoses / Procedures Referred By Contac t Referred To Contact Rheumatology Diagnoses Weakness Kyra Haas MD [facility] [address] [place] [address] [facility] [address] [place] [id number] Referral ID Status Reason Start Date Expiration Date V isits Requested Visits Authorized [id number] Closed Consult, Test & Treat PCP Updated and/or Approved 02/25/2023 02/25/2024 6 6 Encounter Details Date Type Department Care Team (Late st Contact Info) Description 02/25/2023 Transcribe Orders eDH Incoming Referrals [phone] Magdalena Acosta MD [address] [place] [address] Weakness Social History Tobacco Use [...] 4:15 PM EDT Office Visit Dermatology at [place] [address] [facility] [place] [address] Marek Bonilla MD [address] [facility] [address] [place] [address] Scheduled Referrals Name Type Priority Associated Diagnoses Order Schedule Referral to Rheumatology Outpatient Referral Routine Weakness Ordered: 02/25/2023 documented as of this encounter Visit Diagnoses Diagnosis Weakness Other malaise and fatigue documented in this encounter Care Teams Shade Matcher Relationship Specialty Start Date End Date Magdalena Acosta MD [address] [place] [address] PCP - General Family Medicine 02/05/23 documented as of this encounter
--- OUTSIDE RECORDS SUMMARY | 2024-04-06 13:57 | XMS_ITS | Encounter Summary ---
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 Electronically signed by: Cullen Narayanan MD, [facility] ([phone]), at 05/11/2023 4:[address] Angiogram Abdomen [...] questions please contact the health animal care taker that requested your imaging first. Electronically signed by: Eileen Gomes MD, [facility] ([phone]), at 05/11/2023 2:42 PM XR Chest One [...] questions please contact the health animal care taker that requested your imaging first. Chest One [...] questions please contact the health animal care taker that requested your imaging first. Assessment & Plan: Purnmia Thacker is a 67 y.o. female with s/p bioprosthetic AVR in 2016 with recent concern for severe restenosis, HTN, HLD, mixed connective tissue disease, currently being managed for symptomaticsevere and acute exacerbation of heart failure. Patient is in cardiogenic shock in the setting of her critical aortic stenosis. Currently being supported with pressors and inotrope. She is planned for a mwxhy-nc-kvhhj TAVR this morning, which should hopefully improve [...] MD, FACP, FACC Section of Cardiovascular Medicine [facility] Executive Vice Presidenthog counter [facility] [employer] [facility] * Noreen Deutsch RN - 05/12/2023 [...] 05/11/2023 4:11 PM EDT Reported off to SENIOR NET ENGINEER and pt transferred over in the bed for higher level of care. * Antelmo Sharma MD - 05/11/2023 9:45 AM EDT Images from the original note were not included. Formerly [facility] [place] [address] STRUCTURAL HEART DISEASE CONSULTATION NOTE PRIMARY CARE [...] who had been referred for possible TAVR ipeip-ph-rojov evaluation. Her primary symptoms are of dyspnea [...] [facility]. 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 She [...] hour(s)) Lactate, whole blood, send to lab ([facility]) Result Value Ref Range Lactate WB 3.1 (H) 0.5 - 2.2 mmol/L Heparin (unfractionated) Level Result Value Ref Range Heparin UFH Level 0.46 IU/mL Lactate, whole blood, send to lab ([facility]) Result Value Ref Range Lactate WB 1.8 [...] leads Confirmed by MD Harshil, Enrique Bell ([id number]) on 05/10/2023 8:11:46 AM Cardiac Cath 11/09/2022 [...] alert Dr. Hudson of her inpatient status, henryetta primary cardiac surgeon. Based on recent clinic [...] Brody Kaplan APRN Structural Heart Disease Pager [phone] Please see addendum by Dr. Sharma for [...] signed and dated. Antelmo Sharma MD Pager [phone] * Harini Lance MD - 05/11/2023 6:06 AM EDT Images from the original note were not included. Cardiology Progress Note Patient info: Name: Purnima Thacker : 1955 PCP: Magdalena Acosta MD PCP phone number: [phone] Date of Admission: 05/08/2023 ( Hospital Day [...] questions please contact the health animal care taker that requested your imaging first. Electronically signed by: ALIX RUVALCABA MD, [facility] ([phone]), at 05/10/2023 1:25 PM TTE: 05/08 -Left [...] Lance MD Internal Medicine, PGY-1 Cardiology M1-S2, #[id number] 05/11/2023, 6:06 AM Associated attestation - Juan [...] PCP: Magdalena Acosta MD PCP phone number: [phone] Date of Admission: 05/08/2023 ( Hospital Day [...] PCP: Magdalena Acosta MD PCP phone number: [phone] Date of Admission: 05/08/2023 ( Hospital Day [...] Gas) No results found for: PHART, PO2ART, NVM4ECG, LTF7NII Microbiology: Microbiology Results (Last 30 days) No [...] PPx: Diet: Daily Healthy Menu Choices/Cardiac diet ([facility]-Diet) Lines: Peripheral IV Line - Single Lumen [...] Surgical History: Procedure Laterality Date PRG CATH PLGA LEFT HEART CATH & ARTS W/INJ & ANGIO IMG S&I N/A 11/09/2022 CORONARY ANGIOGRAPHY; W [facility],POSSIBLE PCI (WRVU 5.6) performed by Mario Alberto Escobedo MD at [facility] CATH LABS PRO AORTOPLAS FOR SUPRAVALV STEN N/A 09/21/2016 @AORTOPLASTY FOR SUPRAVALVULAR STENOSIS (WRVU 29.33) performed by Alirio Hudson MD at [facility] MAIN OR PRO REPLACEMENT PROSTHETIC AORTIC VALVE OPEN W CARDIOPULMONARY BYPASS HOMOGRF/STENT N/A 09/21/2016 @REPLACE AORTIC VALVE, OPEN, W\CPB, W\PROSTHETIC VALVE (WRVU 41.32) performed by Alirio Hudson MD at [facility] MAIN OR Social History and [...] Surgical History: Procedure Laterality Date PRG CATH PLGA LEFT HEART CATH & ARTS W/INJ & ANGIO IMG S&I N/A 11/09/2022 CORONARY ANGIOGRAPHY; W [facility],POSSIBLE PCI (WRVU 5.6) performed by Mario Alberto Escobedo MD at [facility] CATH LABS PRO AORTOPLAS FOR SUPRAVALV STEN N/A 09/21/2016 @AORTOPLASTY FOR SUPRAVALVULAR STENOSIS (WRVU 29.33) performed by Alirio Hudson MD at [facility] MAIN OR PRO REPLACEMENT PROSTHETIC AORTIC VALVE OPEN W CARDIOPULMONARY BYPASS HOMOGRF/STENT N/A 09/21/2016 @REPLACE AORTIC VALVE, OPEN, W\CPB, W\PROSTHETIC VALVE (WRVU 41.32) performed by Alirio Hudson MD at [facility] MAIN OR Social History and [...] Inpatient Cardiology Progress Note Patient Name: Purnima Thcaker Date of Admission: 05/08/2023 ( Hospital Day [...] days, which prompted her to present to [facility]. She also endorses some intermittent retrosternal chest pain with exertion.She endorses some dizziness with exertion, but has not gotten faint or passed out. At [facility] she was noted to be afebrile, blood pressure 105/64, HR 120s, satting 95% on 2L NC. Labs from [facility] are below, of note she [...] 89/59, which prompted the transfer to us. [facility] labs: CBC - Hgb 10.5 CMP - Cr 1.1 BNP 04426 HsTrop 1358 Lactate 1.6 D-dimer 1183 Interval [...] Klaudia Reid MD Internal Medicine PGY-1 Pager [phone], M1-S1 Service Associated attestation - Juan Luis [...] PCP: Magdalena Acosta MD PCP phone number: [phone] Date of Admission: 05/08/2023 ( Hospital Day 0 days ) Attending:Enrique Chua MD ID: Purnima Thacker is a 67 y.o. female w/ PMH of s/p bioprosthetic AVR in 2016 with recent concern for severe restenosis, HTN, HLD, mixed connective tissue disease, who presents in transfer from [facility] with worsening BONILLA and weight [...] four days, which promptedher to present to [facility]. She also endorses some intermittent retrosternal chest pain with exertion. She endorses some dizziness with exertion, but has not gotten faint or passed out. At [facility] she was noted to be afebrile, blood pressure 105/64, HR 120s, satting 95% on 2L NC. Labs from [facility] are below, of note she [...] 89/59, which prompted the transfer to us. [facility] labs: CBC - Hgb 10.5 CMP - Cr 1.1 BNP 08282 HsTrop 1358 Lactate 1.6 D-dimer 1183 Vasoactive [...] tissue disease, who presents [facility] BONILLA and weight gain [...] #Routine Diet: Daily Healthy Menu Choices/Cardiac diet ([facility]-Diet) DVT Prophylaxis: heparin gtt GI Prophylaxis: none Code Status: Attempt Cardiopulmonary Resuscitation - Inpatient Dispo: Pending clinical course Lincoln Sal MD Internal Medicine, PGY-1 Cardiology [facility] #[id number] 05/08/23 12:06 PM Cardiology Staff Addendum Purnima Tahcker is a 67 y.o. female whom I [...] to the planned procedure. Hand Hygiene: The dental hygienist mobile coordinator did perform hand hygiene prior to arterial [...] Successful arterial line placement. Crispin Timmons MD Autogl[employer] Associated attestation - Onelia Schwartz MD - [...] (flow was non-pulsatile) and appearance of blood. [place]-Marily catheter was placed and locked at 55 [...] information for follow-up [facility] [place] [address] [place] [address] Cardiac Rehab, [place] [id number] [address] [facility], [place] [address] [place] [address] Transportation: family or friend will provide *Brother [...] Type: *No Product type* / Secondary Insurance: [employer] [place] Prescription Coverage: Yes This plan was formulated with input from patient, family (please identify family/friend involved ifapplicable) and team. All are in agreement with plan. Aliza Martino MSN-Ed, RN ACM [place] Office of Care Management Pager #[phone] * Plan of Care - Favian Mckeon [...] Lana Chaudhary RN - 05/21/2023 4:46 PM [facility] [place] [facility] referral OFFICE OF CARE MANAGEMENT [...] Type: *No Product type* / Secondary Insurance: [employer] [facility] [place] Last Physical Therapy Recommendation: (Home with assist from Brother; Friend arriving Tues) with walker, front wheeled Last Occupational Therapy Recommendation: swing bed rehabilitation facility, long-term facility (vs home with support for IADLs) with walker, front wheeled, shower chair Plan for discharge is: Home w/ Services Outpatient Agency/Support Group Needs: Homecare agency Home Health Services: Physical Therapy, Occupational Therapy Agency Referrals: I have met with the patient to: discuss discharge planning needs. describing our affiliations within the [facility] and educate about their right to choose where referrals are sent. provide a list of Home Health Agencies / Durable Medical Equipment vendors which serve their preferred geographic area. They have requested referrals to: [facility] [address] [place] [address] [facility] @ [place], [place] Note routed to a Cottage Attendant who will communicate referrals to facilities and provide any required information. Transportation: family or friend will provide *Brother Raymond on Tuesday 05/22 at 1000 Barriers to discharge: Does not have home 22/02 assist available until tomorrow Tuesday 05/22 Plan going forward: Discharge home into the 22/02 home care of brother Raymond with [facility] and [facility] PT/OT services on Tuesday 05/22 [...] Attending: All Staff: Staff Role Juanita Almaguer Software Installation Engineer Laure Ricks PA Physician Glue Wheel Operator Magdalnea Rodriguez RN Radiology Nurse Consuelo Espinoza radioactive waste disposal dispatcher Nurse Post-operative diagnosis/Indication: Right pleural effusion Name [...] Type: *No Product type* / Secondary Insurance: [employer] [facility] [place] Last Physical Therapy Recommendation: long-term facility, swing bed rehabilitation facility with to [...] to: discuss discharge planning needs. provide the [facility], Office of Care Management letter from the Timber Buyer pertaining to rehab referrals. provide a letter describing our affiliations within the [facility] and educate about their right to choose where referrals are sent. provide the CMS Star Quality Rating handout. review the different levels of rehab including SNF, swing, and acute. provide a list of facilities within their preferred geographic area. request that they provide at least three choices for referral. They have requested referrals to: [facility] [address] [place] [address] [facility] ([facility]) [address] [place] [address] (Accepts pts only after exhausting all other local SNF options) [facility] (Swing) ([facility]) [address] [place] [address] PHONE: [phone] FAX: [phone] [facility] ([facility]) [facility]) [address] [place] [address] PHONE: [phone] FAX: [phone] Note routed to a Cottage Attendant who will communicate referrals to facilities and [...] Crenshaw RN - 05/17/2023 10:25 AM EDT [facility] CARDIAC REHABILITATION Purnima Thacker was seen today regarding participation in the outpatient Phase 2 Cardiac Rehabilitation at [facility]. The patient agrees to [...] fatigue/shortness of breath. * Consult Note - Mlaathi Muro MD - 05/14/2023 11:06 AM EDT Images from the original note were not included. [facility] NEPHROLOGY/HYPERTENSION CONSULT NOTE PATIENT: Purnima Thacker [...] in her course. She ultimately underwent a kctho-cn-qeqfu procedure on and tolerated it well (see [...] 1423 05/12/23 1105 PHART 7.39 7.37 7.34* CJK1WXD 33* 36 42 PO2ART 101 102 73* DUH3KKQ 19.5* 20.4 22.1 LACTATEVEN 1.5 1.8 2.8* GPZ4RRL 40 40 40 PFRATIOART2 252 255 182 VBG (Venous Blood Gas) Recent Labs 05/12/23 1557 05/12/23 1423 05/12/23 1105 LACTATEVEN 1.5 1.8 2.8* Mixed Venous Sat Recent Labs 05/12/23 1425 05/12/23 0508 05/12/23 0321 F7NWKU3 59.9 30.7 32.7 LFT's: Recent Labs 05/14/23 0110 05/13/23 0115 05/12/23 0600 BILITOT 0.4 0.5 0.9 BILIDIR -- 0.3 -- ALBUMIN 3.6 3.0* 3.5 ALKPHOS 86 85 100 ALT 437* 903* 1,174* AST 319* 792* 1,435* No results found for: UPROTCREAT No results found for: TPROTEINPEP, ALBELECT No results found for: MICROALBUR, [id number] No results found for: HA1C Lab Results Component Value Date CALCIUM 8.5 05/14/2023 PHOS 4.7 (H) 05/08/2023 No results found for: 25OHVITD MICROBIOLOGY: ProcedureComponentValueUnitsDate/TimeUrine culture [[id number]]Collected: 05/11/231921Lab Status: Final resultSpecimen: Clean Catch UrineUpdated: [...] consulted for assessment if this patient needs INDUSTRIAL PAINTER. Atthis time, we can likely hold off on INDUSTRIAL PAINTER. Her volume status appears sufficient and her metabolic kanwal angements with mild acidosis is not too profound. Patient does not have significant uremic symptoms. We can hold off for today, but the patient is a high risk candidate for needing INDUSTRIAL PAINTER in future daysespecially if her Cr curve trends the direction it is for the next several days. S/p Ptbma-pq-Rwmwr TF TAVR: Management per cardiology. On milrinone gtt. PLAN: - Please obtain following diagnostics: renal US, urinalysis, urine prot/Cr ratio, urine albumin/Cr ratio, CK, uric acid, serum osmol, daily VBGs - No acute indications for INDUSTRIAL PAINTER/dialysis. We will keep close eye on Cr trend, volume status, and metabolics to ensure patient still does not need INDUSTRIAL PAINTER as she ensues intrinsic renal recovery - [...] M.H.Katherine., M.A. PGY-V Nephrology-Hypertension Fellow Page # [phone] [facility] [address] 2nd floor, [place] Modeler [address] [place] [address] * Care Management - Mario Alberto Olmos [...] Type: *No Product type* / Secondary Insurance: Plan for discharge is: Home w/o Services [...] HOSPITAL at 0945. Was intubated in the confectionery laboratory manager due to agitation. Maintained bedrest [...] Operative Note Patient Name: Purnima Thacker : [id number] MR#: [id number] Case Date: 05/12/2023 Surgeon: Surgeon(s) and Role: [...] procedure Note: Patient Name: Purnima Thacker : [id number] MR#: [id number] Case Date: 05/12/2023 Operators Surgeon: Surgeon(s) and [...] main with 4.0 x 30 mm Resolute Drew Drug Eluting Stent Perclose x1 + Angio-seal 8 Fr x1, RFA Manual pressure, LFA Manual pressure, LFV Endotracheal intubation (performed by cardiac anesthesia) Preliminary findings: Successful right transfemoral TAVR Xghwk-mt-Agcvu with a 23 mm Lai 3 THV. [...] MD, M.Sc. Structural Heart Disease Fellow Pager :[phone] Antelmo Sharma MD Pager [phone] * Op Note - Alirio Hudson MD - 05/12/2023 7:37 AM EDT Preop Diagnosis: Severe aortic stenosis, symptomatic. Postop Diagnosis: Same. Procedure: Transfemoral TAVR procedure with 23mm valve. Surgeon: Alirio Hudson M.D. Assault Amphibious Vehicle Crewman: Danny CULP Procedure: The patient was taken to the confectionery laboratory manager. 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 Former[facility] [place] [address] STRUCTURAL HEART DISEASE CONSULTATION NOTE PRIMARY CARE [...] who had been referred for possible TAVR zfmwx-mp-hbsuh evaluation. Her primary symptoms are of dyspnea [...] [facility]. 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 She [...] mEq 40 mEq Oral Q4H PRN Cristina eJrnigan MD Or potassium chloride ER (Klor-Con M) [...] hour(s)) Lactate, whole blood, send to lab ([facility]) Result Value Ref Range Lactate WB 1.8 [...] leads Confirmed by MD Harshil, Enrique Bell ([id number]) on 05/10/2023 8:11:46 AM Assessment and Plan: Patient ID: Purnima hTacker is a 67 y.o. female with a [...] alert Dr. Hudson of her inpatient status, henryetta primary cardiac surgeon. Based on recent clinic [...] Antelmo Sharma MD Structural Heart Disease Pager [phone] * Plan of Care - Sarahi Nice [...] VTE (Venous Thromboembolism) Risk Flowsheets (Taken 05/09/2023 5526) VTE Prevention/Management: anticoagulant therapy Intervention: Prevent Infection [...] listening utilized Taken 05/08/20231999 by Alivia Kauffman family literacy coordinator/Support System Care: self-care encouraged support provided Problem: [...] Transfer from another hospital Location: admitted from [facility] Reason for Hospitalization: Critical aortic stenosis, causing symptoms Past medical History: Past Medical History: Diagnosis Date Anemia Hospitalizations Within the Past 30 Days: no previous admission in last 30 days Current Decision-Making Capacity: Self If AD's have not been completed the following surrogate would be surrogate decision maker per [place] surrogate decision making law. (Only good for 180 days) Any patient receiving care in [place] must abide by [place] law. The hierarchy for surrogate decision making [...] (i) The agent with financial power of workers compensation defense attorney or a conservator appointed in [...] Home Address confirmed as: [address] [place] [address] Social & Family Supports: All names listed [...] Type: *No Product type* / Secondary Insurance: ONLY if patient has Medicare A&B - Does this patient have secondary insurance?: Yes ; Prescription Coverage: Yes Preferred Pharmacy: updated to [facility] [place] Status: Patient is a : No Primary Care Provider confirmed: Magdalena Acosta MD [phone] Patient/Caregiver Goals of Treatment: Potential Needs for [...] transition of care planning. Alie Bradshaw RN, Pager-[phone] * Plan of Care - Emily Lucero RN - 05/08/2023 2:54 PM EDT OUTCOME EVALUATION NOTE: OUTCOME SUMMARY: Pt arrived from [facility]. A&O, no c/o pain or [...] 4:15 PM EDT Office Visit Dermatology at [place] [address] [place] [id number] Marek Bonilla MD [address] [facility] [facility] [address] [place] [address] Scheduled Referrals Name Type Priority Associated Diagnoses [...] Heart Cath W/Inj L Ventriculography, Img S&I (29443) 05/12/2023 7:37 AM EDT Aortic valve stenosis, [...] DOPP COLOR DOPP (07/08/2023 12:15 PM EST) [facility] EF 20 HEARTLAB SYSTEM Anatomical Region Laterality Modality Cardiac Other 07/08/2023 10:3 1 AM EST Narrative 07/08/2023 12:26 PM EST [address] [place] [address] ? Echocardiogram Report Name: PURNIMA THACKER ?Study Date: 07/08/2023 10:31 AMBP: 118/60 mmHg ? Patient Location: : 1955 ? Height: 155 cm ? Account: [id number] Age: 67 yrs ? Weight: 74 kg Gender: Female ?BSA: 1.7 m2 Ordering Physician: ALIRIO HUDSON Referring Physician: VINOD JUÁREZ Performed By: Felicia Norris RDCS Reason For Study: S/P TAVR Exam Location: [facility]. Interpretation Summary Left ventricular systolic [...] no significant change (post-procedure). Procedure Limited - 48462. Doppler - 85825. Color Doppler - 16146. Satisfactory quality. This study is limited because [...] Note Lee Kincaid MD - 07/08/2023 [address] [place] [address] Echocardiogram Report Name: KIRSTIE PURNIMA M Study Date: 310:31 AMBP: 118/60 mmHg Patient Location: : 1955 Height: 155 cm Account: [id number] Age: 67 yrs Weight: 74 kg Gender: Female BSA: 1.7 m2 Ordering Physician: ALIRIO HUDSON Referring Physician: VINOD JUÁREZ Performed By: Felicia Norris RDCS Reason For Study: S/P TAVR Exam Location: [facility]. Interpretation Summary Left ventricular systolic [...] is nosignificant change (post-procedure). Procedure Limited - 95843. Doppler - 77722. Color Doppler - 82492. Satisfactoryquality. This study is limited because of [...] 93 65 - 199 mg/dL [facility] Comment:Diabetes: >=200 mg/d L plus symptoms Blood Urea Nitrogen 19(H) 8 - 18 mg/dL [facility] Creatinine 0.81 0.70 - 1.20 mg/dL [facility] Sodium 142 135 - 145 mmol/L [facility] Potassium 3.8 3.5 - 5.0 mmol/L [facility] Comment: Please note: ??Patients with WBC >100,000 may have falsely elevated Potassium levels. ??For accurate Potassium quantification in these patients send serum separator tube (gold top) for subsequent determinations. ??Contact the Clinical Chemistry Laboratory if there are any questions. Chloride 104 98 - 107 mmol/L [facility] Carbon Dioxide 26 22 - 31 mmol/L [facility] Anion Gap 12 5 - 15 mmol/L [facility] Calcium 10.2 8.5 - 10.5 mg/dL [facility] Protein, Total 7.4 6.1 - 8.0 g/dL [facility] Albumin 4.1 3.2 - 5.2 g/dL [facility] Aspartate Aminotransferase 24 0 - 30 unit/L [facility] Alanine Aminotransferase 12 0 - 30 unit/L [facility] Alkaline Phosphatase 93 35 - 105 unit/L [facility] Bilirubin, Total 0.3 0.2 - 1.3 mg/dL [facility] Est Glomerular Filtration Rate 80 >=60 mL/min/1. 73 m?? [facility] Comment: This patient's estimated GFR [...] Lab Alirio Hudson MD CHEMISTRY ORDERABLE S [facility] [place] [place] [address] * (ABNORMAL) Basic Metabolic Panel (non-fasting) (05/22/2023 3:57 AM EDT) Pathologist [facility] Glucose 88 65 - 199 mg/dL [facility] Comment:Diabetes: >=200 mg/d L plus symptoms Blood Urea Nitrogen 21(H) 8 - 18 mg/dL [facility] LABORATORY Creatinine 0.69(L) 0.70 - 1.20 mg/dL [facility] Sodium 136 135 - 145 mmol/L [facility] Potassium 3.6 3.5 - 5.0 mmol/L [facility] Comment: Please note: ??Patients with WBC >100,000 may have falsely elevated Potassium levels. ??For accurate Potassium quantification in these patients send serum separator tube (gold top) for subsequent determinations. ??Contact the Clinical Chemistry Laboratory if there are any questions. Chloride 102 98 - 107 mmol/L [facility] Carbon Dioxide 23 22 - 31 mmol/L [facility] Anion Gap 11 5 - 15 mmol/L [facility] Calcium 8.6 8.5 - 10.5 mg/dL [facility] Est Glomerular Filtration Rate 95 >=60 mL/min/1. 73 m?? [facility] Comment: This patient's [...] Agency Comment Spec In Lab Mara Serrano [employer]PER[employer] CHEMISTRY ORDERABL ES [facility] [place] [address] * (ABNORMAL) Basic Metabolic Panel (non-fasting) (05/21/2023 5:06 AM EDT) Glucose 87 65 - 199 mg/dL [facility] Comment:Diabetes: >=200 mg/d L plus symptoms Blood Urea Nitrogen 25(H) 8 - 18 mg/dL [facility] Creatinine 0.84 0.70 - 1.20 mg/dL [facility] Sodium 136 135 - 145 mmol/L [facility] Potassium 3.6 3.5 - 5.0 mmol/L [facility] Comment: Please note: ??Patients with WBC >100,000 may have falsely elevated Potassium levels. ??For accurate Potassium quantification in these patients send serum separator tube (gold top) for subsequent determinations. ??Contact the Clinical Chemistry Laboratory if there are any questions. Chloride 102 98 - 107 mmol/L [facility] Carbon Dioxide 26 22 - 31 mmol/L [facility] Anion Gap 8 5 - 15 mmol/L [facility] Calcium 8.9 8.5 - 10.5 mg/dL [facility] Est Glomerular Filtration Rate 76 >=60 mL/min/1. 73 m?? [facility] Comment: This patient's estimated GFR [...] Narrative Resulting Agency Comment Spec In Lab [facility] [employer]SPORTATION SUPERVISOR CHEMISTRY ORDERABL ES Performing Organization Address [facility] Co de Phone Number [facility] [place] [address] * Lavender Tube HOLD (05/20/2023 2:52 AM EDT) Lavender Hold Sample in lab. [facility] Blood Venous Draw / Unknown 05/20/2023 2:52 AM EDT 05/20/2023 3:04 AM EDT Mara [place] [employer]SP[employer]ATION SUPERVISOR HEMATOLOGY ORDERAB LES Performing Organization Address [facility] de Phone Number [facility] [place] [address] * (ABNORMAL) Basic Metabolic Panel (non-fasting) (05/20/2023 2:52 AM EDT) Glucose 152 65 - 199 mg/dL [facility] Comment:Diabetes: >=200 mg/d L plus symptoms Blood Urea Nitrogen 33(H) 8 - 18 mg/dL [facility] Creatinine 0.82 0.70 - 1.20 mg/dL [facility] Sodium 137 135 - 145 mmol/L [facility] Potassium 3.7 3.5 - 5.0 mmol/L [facility] Comment: Please note: ??Patients with WBC >100,000 may have falsely elevated Potassium levels. ??For accurate Potassium quantification in these patients send serum separator tube (gold top) for subsequent determinations. ??Contact the Clinical Chemistry Laboratory if there are any questions. Chloride 99 98 - 107 mmol/L [facility] Carbon Dioxide 22 22 - 31 mmol/L [facility] Anion Gap 16(H) 5 - 15 mmol/L [facility] Calcium 9.0 8.5 - 10.5 mg/dL [facility] Est Glomerular Filtration Rate 78 >=60 mL/min/1. 73 m?? [facility] Comment: This patient's estimated GFR [...] Agency Comment Spec In Lab Mara [place] [employer]SPORTATION SUPERVISOR CHEMISTRY ORDERABL ES Performing Organization Address [facility] Co de Phone Number [facility] [place] [address] * (ABNORMAL) Potassium (05/20/2023 2:52 AM EDT) [facility] Signature Potassium 3.4(L) 3.5 - 5.0 mmol/L [facility] Comment: Please note: ??Patients with WBC >100,000 may have falsely elevated Potassium levels. ??For accurate Potassium quantification in these patients send serum separator tube (gold top) for subsequent determinations. ??Contact the Clinical Chemistry Laboratory if there are any questions. Blood 05/20/2023 2:52 AM EDT 05/20/2023 3:03 AM EDT Narrative Resulting Agency Comment Spec In Lab Mara [place] [employer]SP[employer]ATION SUPERVISOR CHEMISTRY ORDERABL ES Performing Organization Address City/[facility] Co de Phone Number [facility] [place] [address] * XR Chest PA & Lateral (Generic) [...] questions please contact the health animal care taker that requested your imaging first. ? Electronically signed by: Chyna Johnson MD, [facility] ??([phone]), at 05/19/2023 2:19 PM Narrative 05/19/2023 2:19 [...] have questions please contactthe health animal care taker that requested your imaging first. Electronically signed by: Chyna Johnson MD, [facility]([phone]), at 05/19/2023 2:19 PM Alirio Hudson MD IMG DX ORDERABLES * (ABNORMAL) Basic Metabolic Panel (non-fasting) (05/19/2023 5:49 AM EDT) Glucose 93 65 - 199 mg/dL [facility] Comment:Diabetes: >=200 mg/d L plus symptoms Blood Urea Nitrogen 45(H) 8 - 18 mg/dL [facility] Creatinine 1.02 0.70 - 1.20 mg/dL [facility] Sodium 138 135 - 145 mmol/L [facility] Potassium 3.9 3.5 - 5.0 mmol/L [facility] Comment: Please note: ??Patients with WBC >100,000 may have falsely elevated Potassium levels. ??For accurate Potassium quantification in these patients send serum separator tube (gold top) for subsequent determinations. ??Contact the Clinical Chemistry Laboratory if there are any questions. Chloride 102 98 - 107 mmol/L [facility] Carbon Dioxide 26 22 - 31 mmol/L [facility] Anion Gap 10 5 - 15 mmol/L [facility] Calcium 9.7 8.5 - 10.5 mg/dL [facility] Est Glomerular Filtration Rate 60 >=60 mL/min/1. 73 m?? [facility] Comment: This patient's [...] Agency Comment Spec In Lab Mara Serrano SCHO[employer]SPORTATION SUPERVISOR CHEMISTRY ORDERABL ES [facility] [place] [address] * IR Chest Tube Placement Right (05/18/2023 [...] EDT) Glucose 95 65 - 199 mg/dL [facility] Comment:Diabetes: >=200 mg/d L plus symptoms Blood Urea Nitrogen 71(H) 8 - 18 mg/dL [facility] Comment:result rechecked-[facility] Creatinine 1.64(H) 0.70 - 1.20 mg/dL [facility] Comment:result rechecked-[facility] Sodium 137 135 - 145 mmol/L [facility] Potassium 3.7 3.5 - 5.0 mmol/L [facility] Comment: Please note: ??Patients with WBC >100,000 may have falsely elevated Potassium levels. ??For accurate Potassium quantification in these patients send serum separator tube (gold top) for subsequent determinations. ??Contact the Clinical Chemistry Laboratory if there are any questions. Chloride 100 98 - 107 mmol/L [facility] Carbon Dioxide 24 22 - 31 mmol/L [facility] Anion Gap 13 5 - 15 mmol/L [facility] Calcium 9.7 8.5 - 10.5 mg/dL [facility] Est Glomerular Filtration Rate 34(L) >=60 mL/min/1. 73 m?? [facility] Comment: This patient's estimated GFR [...] Agency Comment Spec In Lab Mara Serrano [employer]SP[employer]ATION SUPERVISOR CHEMISTRY ORDERABL ES [facility] [place] [address] * XR Chest PA & Lateral (Generic) [...] questions please contact the health animal care taker that requested your imaging first. ? Narrative [...] have questions please contactthe health animal care taker that requested your imaging first. Electronically signed by: Ghassan Reyes MD, [facility]([phone]), at 05/17/2023 11:46 AM Alirio Hudson MD IMG DX ORDERABLES * (ABNORMAL) Comprehensive metabolic panel (non-fasting) (05/17/2023 4:35 AM EDT) Glucose 89 65 - 199 mg/dL [facility] Comment:Diabetes: >=200 mg/d L plus symptoms Blood Urea Nitrogen 97(H) 8 - 18 mg/dL [facility] Creatinine 2.97(H) 0.70 - 1.20 mg/dL [facility] Comment:result rechecked-JSJc Sodium 135 135 - 145 mmol/L [facility] Potassium 4.1 3.5 - 5.0 mmol/L [facility] Comment: Please note: ??Patients with WBC >100,000 may have falsely elevated Potassium levels. ??For accurate Potassium quantification in these patients send serum separator tube (gold top) for subsequent determinations. ??Contact the Clinical Chemistry Laboratory if there are any questions. Chloride 97(L) 98 - 107 mmol/L [facility] Carbon Dioxide 22 22 - 31 mmol/L [facility] Anion Gap 16(H) 5 - 15 mmol/L [facility] Calcium 9.6 8.5 - 10.5 mg/dL [facility] Protein, Total 6.5 6.1 - 8.0 g/dL [facility] Albumin 3.7 3.2 - 5.2 g/dL [facility] Aspartate Aminotransferase 58(H) 0 - 30 unit/L [facility] Alanine Aminotransferase 66(H) 0 - 30 unit/L [facility] Alkaline Phosphatase 86 35 - 105 unit/L [facility] Bilirubin, Total 0.6 0.2 - 1.3 mg/dL [facility] Est Glomerular Filtration Rate 17(L) >=60 mL/min/1. 73 m?? [facility] Comment: This patient's estimated GFR [...] Lab Alirio Hudson MD CHEMISTRY ORDERABLE S [facility] [place] [address] * Potassium (05/16/2023 11:15 PM EDT) Potassium 3.7 3.5 - 5.0 mmol/L [facility] Comment: Please note: ??Patients with [...] CHEMISTRY ORDERABLE S Performing Organization Address [facility] Co de Phone Number [facility] [place] [address] * Magnesium (05/16/2023 5:22 PM EDT) Magnesium 0.96 0.69 - 1.07 mmol/L [facility] Blood 05/16/2023 5:22 PM EDT 05/16/2023 5:27 PM EDT Narrative Resulting Agency Comment Spec In Lab Alirio Hudson MD CHEMISTRY ORDERABLE S Performing Organization Address [facility] Co de Phone Number [facility] [place] [address] * (ABNORMAL) Basic Metabolic Panel (non-fasting) (05/16/2023 5:22 PM EDT) Glucose 106 65 - 199 mg/dL [facility] Comment:Diabetes: >=200 mg/d L plus symptoms Blood Urea Nitrogen 103(H) 8 - 18 mg/dL [facility] Creatinine 3.91(H) 0.70 - 1.20 mg/dL [facility] Comment:result rechecked-imm Sodium 132(L) 135 - 145 mmol/L [facility] Potassium 3.6 3.5 - 5.0 mmol/L [facility] Comment: Please note: ??Patients with WBC >100,000 may have falsely elevated Potassium levels. ??For accurate Potassium quantification in these patients send serum separator tube (gold top) for subsequent determinations. ??Contact the Clinical Chemistry Laboratory if there are any questions. Chloride 92(L) 98 - 107 mmol/L [facility] Carbon Dioxide 22 22 - 31 mmol/L [facility] Anion Gap 18(H) 5 - 15 mmol/L [facility] Calcium 9.7 8.5 - 10.5 mg/dL [facility] Est Glomerular Filtration Rate 12(L) >=60 mL/min/1. 73 m?? [facility] Comment: This patient's estimated GFR [...] Lab Alirio Hudson MD CHEMISTRY ORDERABLE S [facility] [place] [address] * (ABNORMAL) Potassium (05/16/2023 11:43 AM EDT) [facility] Signature Potassium 3.3(L) 3.5 - 5.0 mmol/L [facility] Comment: Please note: ??Patients with [...] Lab Alirio Hudson MD CHEMISTRY ORDERABLE S [facility] [place] [address] * (ABNORMAL) Ferritin (05/16/2023 4:41 AM EDT) Ferritin 1,813(H) 30 - 400 ng/mL [facility] Comment: Pediatric reference ranges not verified at [facility], interpret with caution. Reference ranges for females greater than 50 years of age approach values for men, i.e., 30-400 ng/mL. Blood 05/16/2023 4:41 AM EDT 05/16/2023 4:54 AM EDT Narrative Resulting Agency Comment Spec In Lab Kristopher Ayoub MD CHEMISTRY ORDERABLES [facility] [place] [address] * (ABNORMAL) PTH (05/16/2023 4:41 AM EDT) [facility] Parathyroid Hormone 120(H) 15 - 65 pg/mL [facility] Blood 05/16/2023 4:41 AM EDT 05/16/2023 4:54 AM EDT Narrative Resulting Agency Comment Spec In Lab Kristopher Ayoub MD CHEMISTRY ORDERABLES Performing Organization Address City/[facility]/ZIP Co de Phone Number [facility] [place] [address] * Vitamin D, 25-Hydroxy (05/16/2023 4:41 AM EDT) Pathologist [facility] Vitamin D Total 25 OH 33 21 - 100 ng/mL [facility] Vit D Interp Sufficient [facility] Blood 05/16/2023 4:41 AM EDT 05/16/2023 4:54 AM EDT Narrative Resulting Agency Comment Spec In Lab Kristopher Ayoub MD CHEMISTRY ORDERABLES [facility] [place] [address] * (ABNORMAL) Blood Gas Venous ([facility]) (05/16/2023 4:22 AM EDT) Pathologist [facility] pH, Venous 7.41 7.32 - 7.42 [facility] PCO2, Venous 32(L) 41 - 51 mmHg [facility] PO2, Venous 73(H) 25 - 40 mmHg [facility] Bicarbonate, Venous 19.6 mmol/L [facility] Base Excess, Venous -5.1 mmol/L [facility] Hgb Blood Gas 9.7(L) 11.7 - 15.5 g/dL [facility] Oxyhemoglobin, Venous 92.8 % [facility] Carboxyhemoglob in, Venous 0.1 % [facility] Comment: Nonsmokers: 0.5-1.5% COHB Smokers: Variable, but usually less than 10% Toxic: 20-30% COHB Lethal: Greater than 60% COHB Methemoglobin, Venous 0.3 <=1.5 % [facility] Na Whole Blood 130(L) 135 - 145 mmol/L [facility] K Whole Blood 3.7 3.5 - 5.0 mmol/L [facility] Comment: Please note: Patients with WBC >100,000 may have falsely elevated Potassium levels. Contact the Clinical Chemistry Laboratory if there are any questions. ICa Whole Blood 1.15 1.15 - 1.33 mmol/L [facility] Comment: Note: ??Total bilirubin higher than 20 mg/dL may lead to falsely low ionized calcium. CL Whole Blood 95(L) 98 - 107 mmol/L [facility] Gluc Whole Bld 82 65 - 199 mg/dL [facility] Comment:Diabetes: >=200 mg/d L plus symptoms Lactate WB 1.1 0.5 - 2.2 mmol/L [facility] Blood Gas Source Venous [facility] Blood Venous Draw / Unknown 05/16/2023 4:22 AM EDT 05/16/2023 4:31 AM EDT Narrative Resulting Agency Comment Spec In Lab Bonita TOBAR CHEMISTRY ORDERABLES [facility] [place] [address] * (ABNORMAL) Differential, Automated (05/16/2023 4:20 AM EDT) Neutrophil % 84.1 % [facility] Neutrophil Absolute 6.22(H) 1.70 - 6.10 x10(3)/mc L [facility] Lymph % 5.8 % [facility] Lymphocytes Abs 0.4(L) 0.9 - 3.2 x10(3)/mc L [facility] Monocyte % 8.8 % [facility] Monocyte Abs 0.6 0.3 - 0.9 x10(3)/mc L [facility] Eos % 0.4 % [facility] Eosinophils Abs 0.0 0.0 - 0.4 x10(3)/mc L [facility] Basophil % 0.0 % [facility] Baso Absolute 0.0 0.0 - 0.1 x10(3)/mc L [facility] Immature Gran % 0.90 % [facility] Comment: Immature granulocytes(IG's)percentage and absolute count will include metamyelocytes, myelocytes, and promyelocytes. Blood smears from CBCs yielding IG's will be scanned manually for concordance. If this scan disagrees with the automated IG or if promyelocytes are noted, a manual differential will be performed. Immature Gran Absolute 0.07(H) 0.00 - 0.04 x10(3)/mc L [facility] Blood 05/16/2023 4:20 AM EDT 05/16/2023 4:29 AM EDT Narrative Resulting Agency Comment Spec In Lab James Agustin MD HEMATOLOGY ORDER JODIE [facility] [place] [address] * (ABNORMAL) Hemogram (05/16/2023 4:20 AM EDT) White Blood Cell 7.4 4.0 - 9.5 x10(3)/mc L [facility] Red Blood Cell 2.40(L) 4.00 - 5.21 x10(6)/mc L [facility] Hemoglobin 7.8(L) 11.7 - 15.5 g/dL [facility] Hematocrit 22.5(L) 35.7 - 45.8 % [facility] Mean Cell Volume 93.8 82.6 - 94.4 fL [facility] Mean Cell Hemoglobin 32.5(H) 27.1 - 32.0 pg [facility] Mean Cell Hemoglobin Concentration 34.7 31.7 - 35.0 g/dL [facility] Platelet 120(L) 145 - 357 x10(3)/mc L [facility] RDW Standard Deviation 42.9 37.0 - 46.0 fL [facility] RDW coefficient of variation 12.9 11.5 - 14.1 % [facility] Mean Platelet Volume 11.3 7.6 - 12.9 fL [facility] NRBC% auto 0.7 % [facility] NRBC Absolute 0.050(H) 0.000 - 0.000 x10(3)/mc L [facility] Blood 05/16/2023 4:20 AM EDT 05/16/2023 4:29 AM EDT Narrative Resulting Agency Comment Spec In Lab James Agustin MD HEMATOLOGY ORDER JODIE [facility] [place] [address] * (ABNORMAL) Basic Metabolic Panel (non-fasting) (05/16/2023 4:20 AM EDT) Glucose 89 65 - 199 mg/dL [facility] Comment:Diabetes: >=200 mg/d L plus symptoms Blood Urea Nitrogen 108(H) 8 - 18 mg/dL [facility] Creatinine 4.74(H) 0.70 - 1.20 mg/dL [facility] Comment:result rechecked-[facility] Sodium 132(L) 135 - 145 mmol/L [facility] Potassium 3.9 3.5 - 5.0 mmol/L [facility] Comment: Please note: ??Patients with WBC >100,000 may have falsely elevated Potassium levels. ??For accurate Potassium quantification in these patients send serum separator tube (gold top) for subsequent determinations. ??Contact the Clinical Chemistry Laboratory if there are any questions. Chloride 95(L) 98 - 107 mmol/L [facility] Carbon Dioxide 18(L) 22 - 31 mmol/L [facility] Anion Gap 19(H) 5 - 15 mmol/L [facility] Calcium 9.2 8.5 - 10.5 mg/dL [facility] Est Glomerular Filtration Rate 10(L) >=60 mL/min/1. 73 m?? [facility] Comment: This patient's estimated GFR [...] Lab Alirio Hudson MD CHEMISTRY ORDERABLE S [facility] [place] [address] * (ABNORMAL) Iron and TIBC (05/16/2023 4:20 AM EDT) Iron 31 30 - 150 mcg/dL [facility] TIBC 259 250 - 450 mcg/dL [facility] Iron Saturation 12(L) 20 - 50 % [facility] Blood 05/16/2023 4:20 AM EDT 05/16/2023 4:29 AM EDT Narrative Resulting Agency Comment Spec In Lab Kristopher Ayoub MD CHEMISTRY ORDERABLES [facility] [place] [address] * (ABNORMAL) Basic Metabolic Panel (non-fasting) (05/15/2023 12:50 AM EDT) Glucose 101 65 - 199 mg/dL [facility] Comment:Diabetes: >=200 mg/d L plus symptoms Blood Urea Nitrogen 109(H) 8 - 18 mg/dL [facility] Creatinine 5.62(H) 0.70 - 1.20 mg/dL [facility] Comment:result rechecked-[place] Sodium 131(L) 135 - 145 mmol/L [facility] Comment:result rechecked-[place] Potassium 3.7 3.5 - 5.0 mmol/L [facility] Comment: result rechecked-KS Please note: ??Patients with WBC >100,000 may have falsely elevated Potassium levels. ??For accurate Potassium quantification in these patients send serum separator tube (gold top) for subsequent determinations. ??Contact the Clinical Chemistry Laboratory if there are any questions. Chloride 92(L) 98 - 107 mmol/L [facility] Comment:result rechecked-[place] Carbon Dioxide 18(L) 22 - 31 mmol/L [facility] Comment:result rechecked-[place] Anion Gap 21(H) 5 - 15 mmol/L [facility] Calcium 8.9 8.5 - 10.5 mg/dL [facility] Est Glomerular Filtration Rate 8(L) >=60 mL/min/1. 73 m?? [facility] Comment: This patient's estimated GFR [...] Lab Alirio Hudson MD CHEMISTRY ORDERABLE S [facility] [place] [address] * (ABNORMAL) Hemogram (05/15/2023 12:50 AM EDT) White Blood Cell 9.1 4.0 - 9.5 x10(3)/mc L [facility] Red Blood Cell 2.19(L) 4.00 - 5.21 x10(6)/mc L [facility] Hemoglobin 7.2(L) 11.7 - 15.5 g/dL [facility] Hematocrit 20.6(L) 35.7 - 45.8 % [facility] Mean Cell Volume 94.1 82.6 - 94.4 fL [facility] Mean Cell Hemoglobin 32.9(H) 27.1 - 32.0 pg [facility] Mean Cell Hemoglobin Concentration 35.0 31.7 - 35.0 g/dL [facility] Platelet 109(L) 145 - 357 x10(3)/mc L [facility] RDW Standard Deviation 43.6 37.0 - 46.0 fL [facility] RDW coefficient of variation 12.9 11.5 - 14.1 % [facility] Mean Platelet Volume 10.4 7.6 - 12.9 fL [facility] NRBC% auto 2.1 % [facility] NRBC Absolute 0.190(H) 0.000 - 0.000 x10(3)/ L [facility] Blood 05/15/2023 12:5 0 AM EDT 05/15/2023 12:52 AM EDT Narrative Resulting Agency Comment Spec In Lab Alirio Hudson MD HEMATOLOGY ORDERABL ES Performing Organization Address City/State/[facility] Co de Phone Number [facility] [place] [address] * (ABNORMAL) BLOOD GAS 2 VENOUS (05/15/2023 12:49 AM EDT) pH, Venous 7.33 7.32 - 7.42 [facility] PCO2, Venous 37(L) 41 - 51 mmHg [facility] PO2, Venous 34 25 - 40 mmHg [facility] Bicarbonate, Venous 19.1 mmol/L [facility] Base Excess, Venous -6.8 mmol/L [facility] Hgb Blood Gas 10.8(L) 11.7 - 15.5 g/dL [facility] Oxyhemoglobin, Venous 58.1 % [facility] Carboxyhemoglob in, Venous 0.3 % [facility] Comment: Nonsmokers: 0.5-1.5% COHB Smokers: Variable, but usually less than 10% Toxic: 20-30% COHB Lethal: Greater than 60% COHB Methemoglobin, Venous 0.6 <=1.5 % [facility] Na Whole Blood 136 135 - 145 mmol/L [facility] K Whole Blood 3.7 3.5 - 5.0 mmol/L [facility] Comment: Please note: Patients with WBC >100,000 may have falsely elevated Potassium levels. Contact the Clinical Chemistry Laboratory if there are any questions. ICa Whole Blood 1.12(L) 1.15 - 1.33 mmol/L [facility] Comment: Note: ??Total bilirubin higher than 20 mg/dL may lead to falsely low ionized calcium. CL Whole Blood 95(L) 98 - 107 mmol/L [facility] Gluc Whole Bld 101 65 - 199 mg/dL [facility] Comment:Diabetes: >=200 mg/d L plus symptoms Lactate WB 1.3 0.5 - 2.2 mmol/L [facility] Flow, Mike 1.0 LPM [facility] Blood Gas Source Venous [facility] Blood 05/15/2023 12:4 9 AM EDT 05/15/2023 12:49 AM EDT Alirio Hudson MD POINT OF CARE TEST ORDERABLES Performing Organization Address City/State/[facility] Co de Phone Number [facility] [place] [address] * US Retroperitoneal Complete (05/14/2023 3:53 PM [...] who have questions, please contact the health animal care taker that requested your imaging first. ? Hayden Robledo, Staff Physician Electronically Signed Final Report ?? 05/14/2023 04:39 pm Narrative 05/14/2023 4:39 PM EDT Renal ? (Signed Final 05/14/2023 04:39 pm) PATIENT INFO: ID #: ? [id number] ?: ??55 (67 yrs)(F) Name: ? PURNIMA THACKER ?Visit Date: 05/14/2023 03:44 pm PERFORMED BY: Attending: ?Meena CULP, Hayden Stafford Resident: ? Nell CULP, Anand August Performed By: ? Consuelo Tello RDMS Referred By: ?ALIRIO HUDSON Location: ? [facility] SERVICE(S) PROVIDED: URETRO - Retroperitoneal Complete - [id number] ? [id number] INDICATIONS: [facility] COMPARISON: CT: Abdomen/Pelvis 05/11/23 RIGHT [...] 05/14/2023 04:39 pm) PATIENT INFO: ID #: [id number] : 55 (67 yrs)(F) Name: PURNIMA THCAKER Visit Date: 05/14/2023 03:44 pm PERFORMED BY: Attending: Hayden Robledo MD Resident: Anand Camejo MD Performed By: Consueol Tello RDMS Referred By: ALIRIO HUDSON Location: [facility] SERVICE(S) PROVIDED: URETRO - Retroperitoneal Complete - [id number] INDICATIONS: EV[facility] COMPARISON: CT: Abdomen/Pelvis 05/11/23 RIGHT [...] who have questions, please contact the health animal care taker that requested your imaging first. Hayden Robledo, Staff Physician Electronically Signed Final Report 05/14/2023 04:39 pm Alirio Hudson MD IMG US GEN ORDERABL ES * CK (05/14/2023 3:17 PM EDT) Creatine Kinase 123 0 - 160 unit/L [facility] Blood 05/14/2023 3:17 PM EDT 05/14/2023 3:31 PM EDT Narrative Resulting Agency Comment Spec In Lab Alirio Hudson MD CHEMISTRY ORDERABLE S Performing Organization Address [facility] Co de Phone Number [facility] [place] [address] * (ABNORMAL) Uric acid (05/14/2023 3:17 PM EDT) Uric Acid 14.9(H) 2.5 - 6.5 mg/dL [facility] Blood 05/14/2023 3:17 PM EDT 05/14/2023 3:31 PM EDT Narrative Resulting Agency Comment Spec In Lab Alirio Hudson MD CHEMISTRY ORDERABLE S Performing Organization Address [facility] Co de Phone Number [facility] [place] [address] * (ABNORMAL) Osmolality (05/14/2023 3:17 PM EDT) Osmolality 311(H) 275 - 295 mOsm/kg [facility] Blood 05/14/2023 3:17 PM EDT 05/14/2023 3:31 PM EDT Narrative Resulting Agency Comment Spec In Lab Alirio Hudson MD [place] [address] * (ABNORMAL) Differential, Automated (05/14/2023 1:10 AM EDT) Neutrophil % 87.2 % [facility] Neutrophil Absolute 9.74(H) 1.70 - 6.10 x10(3)/mc L [facility] Lymph % 3.9 % [facility] Lymphocytes Abs 0.4(L) 0.9 - 3.2 x10(3)/mc L [facility] Monocyte % 7.9 % [facility] Monocyte Abs 0.9 0.3 - 0.9 x10(3)/mc L [facility] Eos % 0.0 % [facility] Eosinophils Abs 0.0 0.0 - 0.4 x10(3)/mc L [facility] Basophil % 0.1 % [facility] Baso Absolute 0.0 0.0 - 0.1 x10(3)/mc L [facility] Immature Gran % 0.90 % [facility] Comment: Immature granulocytes(IG's)percentage and absolute count will include metamyelocytes, myelocytes, and promyelocytes. Blood smears from CBCs yielding IG's will be scanned manually for concordance. If this scan disagrees with the automated IG or if promyelocytes are noted, a manual differential will be performed. Immature Gran Absolute 0.10(H) 0.00 - 0.04 x10(3)/ L [facility] Blood 05/14/2023 1:10 AM EDT 05/14/2023 1:24 AM EDT Narrative Resulting Agency Comment Spec In Lab Bonita TOBAR HEMATOLOGY ORDERABLE S Performing Organization Address City/[facility]/ZIP Co de Phone Number [facility] [place] [address] * (ABNORMAL) Hemogram (05/14/2023 1:10 AM EDT) White Blood Cell 11.2(H) 4.0 - 9.5 x10(3)/mc L [facility] Red Blood Cell 2.19(L) 4.00 - 5.21 x10(6)/mc L [facility] Hemoglobin 7.2(L) 11.7 - 15.5 g/dL [facility] Hematocrit 20.3(L) 35.7 - 45.8 % [facility] Mean Cell Volume 92.7 82.6 - 94.4 fL [facility] Mean Cell Hemoglobin 32.9(H) 27.1 - 32.0 pg [facility] Mean Cell Hemoglobin Concentration 35.5(H) 31.7 - 35.0 g/dL [facility] Platelet 112(L) 145 - 357 x10(3)/mc L [facility] RDW Standard Deviation 41.4 37.0 - 46.0 fL [facility] RDW coefficient of variation 12.5 11.5 - 14.1 % [facility] Mean Platelet Volume 10.4 7.6 - 12.9 fL [facility] NRBC% auto 1.5 % [facility] NRBC Absolute 0.170(H) 0.000 - 0.000 x10(3)/ L [facility] Blood 05/14/2023 1:10 AM EDT 05/14/2023 1:24 AM EDT Narrative Resulting Agency Comment Spec In Lab Bonita TOBAR HEMATOLOGY ORDERABLE S [facility] [place] [address] * (ABNORMAL) Comprehensive metabolic panel (non-fasting) (05/14/2023 1:10 AM EDT) Glucose 120 65 - 199 mg/dL [facility] Comment:Diabetes: >=200 mg/d L plus symptoms Blood Urea Nitrogen 98(H) 8 - 18 mg/dL [facility] Creatinine 4.80(H) 0.70 - 1.20 mg/dL [facility] Comment:result rechecked-ssc Sodium 132(L) 135 - 145 mmol/L [facility] Potassium 4.1 3.5 - 5.0 mmol/L [facility] Comment: Please note: ??Patients with WBC >100,000 may have falsely elevated Potassium levels. ??For accurate Potassium quantification in these patients send serum separator tube (gold top) for subsequent determinations. ??Contact the Clinical Chemistry Laboratory if there are any questions. Chloride 94(L) 98 - 107 mmol/L [facility] Carbon Dioxide 18(L) 22 - 31 mmol/L [facility] Anion Gap 20(H) 5 - 15 mmol/L [facility] Calcium 8.5 8.5 - 10.5 mg/dL [facility] Protein, Total 5.8(L) 6.1 - 8.0 g/dL [facility] Albumin 3.6 3.2 - 5.2 g/dL [facility] Aspartate Aminotransferase 319(H) 0 - 30 unit/L [facility] Alanine Aminotransferase 437(H) 0 - 30 unit/L [facility] Alkaline Phosphatase 86 35 - 105 unit/L [facility] Bilirubin, Total 0.4 0.2 - 1.3 mg/dL [facility] Est Glomerular Filtration Rate 9(L) >=60 mL/min/1. 73 m?? [facility] Comment: This patient's estimated GFR [...] Lab Alirio Hudson MD CHEMISTRY ORDERABLE S [facility] [address] * APTT (05/13/2023 10:15 AM EDT) Partial Thromboplastin Time 27 25 - 37 sec [facility] Comment: The PTT is NOT appropriate for heparin monitoring. Use the Anti-Xa level for heparin monitoring (HEP UFH) or LMWH monitoring (HEP LMW). A PTT less than 37 seconds generally indicates adequate hemostasis. Blood 05/13/2023 10:1 5 AM EDT 05/13/2023 10:46 AM EDT Narrative Resulting Agency Comment Spec In Lab Alirio Hudson MD HEMATOLOGY ORDERABL ES Performing Organization Address [facility] de Phone Number [facility] [place] [address] * (ABNORMAL) Prothrombin Time (05/13/2023 10:15 AM EDT) Prothrombin Time 14.6(H) 9.4 - 12.5 sec [facility] International Normalization Ratio 1.3 [facility] Comment: An INR <2.0 indicates [...] ES Performing Organization Address [facility] de Phone Number [facility] [place] [address] * EKG 12 Lead (05/13/2023 9:22 AM EDT) Ventricular rate 92 BPM MUSE SYSTEM Atrial Rate 92 BPM MUSE SYSTEM P-R Interval 140 ms MUSE SYSTEM QRS Duration 104 ms MUSE SYSTEM Q-T Interval 384 ms MUSE SYSTEM QTC Calculated (Bezet) 474 ms MUSE SYSTEM Calculated P Theresa 33 degrees MUSE SYSTEM Calculated R Theresa 41 degrees MUSE SYSTEM Calculated T Theresa -35 degrees MUSE SYSTEM INTERPRETATION Sinus rhythm with frequent Premature ventricular complexes Septal infarct , age undetermined ST & T wave abnormality, consider lateral ischemia Abnormal ECG When compared with ECG of 12-MAY-2023 10:10, Premature ventricular complexes are now Present I personally reviewed the tracing and edited the fellows interpretation Confirmed by fellow MD Anitha, Carissa ([id number]) on 05/13/2023 3:25:30 PM Confirmed by Maxx Best ([id number]) on 05/13/2023 8:30:56 PM MUSE SYSTEM 05/13/2023 9:22 AM EDT 05/13/2023 8:30 PM EDT Alirio Hudson MD ECG ORDERABLES MUSE SYSTEM * (ABNORMAL) Differential, Automated (05/13/2023 1:15 AM EDT) Neutrophil % 88.1 % [facility] Neutrophil Absolute 7.62(H) 1.70 - 6.10 x10(3)/mc L [facility] Lymph % 3.1 % [facility] Lymphocytes Abs 0.3(L) 0.9 - 3.2 x10(3)/mc L [facility] Monocyte % 7.9 % [facility] Monocyte Abs 0.7 0.3 - 0.9 x10(3)/mc L [facility] Eos % 0.0 % [facility] Eosinophils Abs 0.0 0.0 - 0.4 x10(3)/mc L [facility] Basophil % 0.1 % [facility] Baso Absolute 0.0 0.0 - 0.1 x10(3)/mc L [facility] Immature Gran % 0.80 % [facility] Comment: Immature granulocytes(IG's)percentage and absolute count will include metamyelocytes, myelocytes, and promyelocytes. Blood smears from CBCs yielding IG's will be scanned manually for concordance. If this scan disagrees with the automated IG or if promyelocytes are noted, a manual differential will be performed. Immature Gran Absolute 0.07(H) 0.00 - 0.04 x10(3)/mc L [facility] Blood 05/13/2023 1:15 AM EDT 05/13/2023 1:29 AM EDT Narrative Resulting Agency Comment Spec In Lab Lorri TOBAR HEMATOLOGY ORDERABLE S [facility] [place] [address] * (ABNORMAL) Hemogram (05/13/2023 1:15 AM EDT) White Blood Cell 8.6 4.0 - 9.5 x10(3)/mc L [facility] Red Blood Cell 2.37(L) 4.00 - 5.21 x10(6)/mc L [facility] Hemoglobin 7.8(L) 11.7 - 15.5 g/dL [facility] Hematocrit 22.2(L) 35.7 - 45.8 % [facility] Mean Cell Volume 93.7 82.6 - 94.4 fL [facility] Mean Cell Hemoglobin 32.9(H) 27.1 - 32.0 pg [facility] Mean Cell Hemoglobin Concentration 35.1(H) 31.7 - 35.0 g/dL [facility] Platelet 130(L) 145 - 357 x10(3)/mc L [facility] RDW Standard Deviation 41.7 37.0 - 46.0 fL [facility] RDW coefficient of variation 12.5 11.5 - 14.1 % [facility] Mean Platelet Volume 10.2 7.6 - 12.9 fL [facility] NRBC% auto 0.5 % [facility] NRBC Absolute 0.040(H) 0.000 - 0.000 x10(3)/ L [facility] Blood 05/13/2023 1:15 AM EDT 05/13/2023 1:29 AM EDT Narrative Resulting Agency Comment Spec In Lab Lorri TOBAR HEMATOLOGY ORDERABLE S [facility] [place] [address] * (ABNORMAL) Hepatic Function Panel (05/13/2023 1:15 AM EDT) Protein, Total 5.5(L) 6.1 - 8.0 g/dL [facility] Albumin 3.0(L) 3.2 - 5.2 g/dL [facility] Aspartate Aminotransferase 792(H) 0 - 30 unit/L [facility] Alanine Aminotransferase 903(H) 0 - 30 unit/L [facility] Alkaline Phosphatase 85 35 - 105 unit/L [facility] Bilirubin, Total 0.5 0.2 - 1.3 mg/dL [facility] Bilirubin, Direct 0.3 0.0 - 0.3 mg/dL [facility] Blood 05/13/2023 1:15 AM EDT 05/13/2023 1:29 AM EDT Narrative Resulting Agency Comment Spec In Lab Alirio Hudson MD CHEMISTRY ORDERABLE S [facility] [place] [address] * (ABNORMAL) Basic Metabolic Panel (non-fasting) (05/13/2023 1:15 AM EDT) Glucose 107 65 - 199 mg/dL [facility] Comment:Diabetes: >=200 mg/d L plus symptoms Blood Urea Nitrogen 82(H) 8 - 18 mg/dL [facility] Creatinine 3.15(H) 0.70 - 1.20 mg/dL [facility] Comment:result rechecked-NINAJ Sodium 132(L) 135 - 145 mmol/L [facility] Potassium 3.8 3.5 - 5.0 mmol/L [facility] Comment: Please note: ??Patients with WBC >100,000 may have falsely elevated Potassium levels. ??For accurate Potassium quantification in these patients send serum separator tube (gold top) for subsequent determinations. ??Contact the Clinical Chemistry Laboratory if there are any questions. Chloride 95(L) 98 - 107 mmol/L [facility] Carbon Dioxide 20(L) 22 - 31 mmol/L [facility] Anion Gap 17(H) 5 - 15 mmol/L [facility] Calcium 8.3(L) 8.5 - 10.5 mg/dL [facility] Est Glomerular Filtration Rate 16(L) >=60 mL/min/1. 73 m?? [facility] Comment: This patient's estimated GFR [...] Lab Alirio Hudson MD CHEMISTRY ORDERABLE S [facility] [place] [address] * (ABNORMAL) BLOOD GAS 2 ARTERIAL (05/12/2023 3:57 PM EDT) pH, Arterial 7.39 7.35 - 7.45 [facility] PCO2, Arterial 33(L) 35 - 45 mmHg [facility] PO2, Arterial 101 85 - 104 mmHg [facility] Bicarbonate, Arterial 19.5(L) 20.0 - 26.0 mmol/L [facility] Base Excess, Arterial -5.5(L) -3.0 - 3.0 mmol/L [facility] Hgb Blood Gas 9.8(L) 11.7 - 15.5 g/dL [facility] Oxyhemoglobin, Arterial 95.2 94.0 - 97.0 % [facility] Carboxyhemoglob in, Arterial 0.2 % [facility] Comment: Nonsmokers: 0.5-1.5% COHB Smokers: Variable, but usually less than 10% Toxic: 20-30% COHB Lethal: Greater than 60% COHB Methemoglobin, Arterial 0.8 <=1.5 % [facility] Na Whole Blood 129(L) 135 - 145 mmol/L [facility] K Whole Blood 3.8 3.5 - 5.0 mmol/L [facility] Comment: Please note: Patients with WBC >100,000 may have falsely elevated Potassium levels. Contact the Clinical Chemistry Laboratory if there are any questions. ICa Whole Blood 1.05(L) 1.15 - 1.33 mmol/L [facility] Comment: Note: ??Total bilirubin higher than 20 mg/dL may lead to falsely low ionized calcium. CL Whole Blood 96(L) 98 - 107 mmol/L [facility] Gluc Whole Bld 178 65 - 199 mg/dL [facility] Comment:Diabetes: >=200 mg/d L plus symptoms. Lactate WB 1.5 0.5 - 2.2 mmol/L [facility] FIO2 Art 40 % [facility] PF Ratio Art 252 [facility] Blood 05/12/2023 3:57 PM EDT 05/12/2023 3:57 PM EDT Alirio Hudson MD POINT OF CARE TEST ORDERABLES Performing Organization Address [facility] Co de Phone Number [facility] [place] [address] * (ABNORMAL) Coox2 (05/12/2023 2:25 PM EDT) pO2, Coox 37 mmHg [facility] Hgb Blood Gas 9.5(L) 11.7 - 15.5 g/dL [facility] Oxyhemoglobin, Coox 59.9 % [facility] Carboxyhemoglo bin, Coox 0.3 % [facility] Comment: Nonsmokers: 0.5-1.5% COHB Smokers: Variable, but usually less than 10% Toxic: 20-30% COHB Lethal: Greater than 60% COHB Methemoglobin, Coox 0.7 <=1.5 % [facility] Source Coox Mixed Venous [facility] Blood 05/12/2023 2:25 PM EDT 05/12/2023 2:25 PM EDT Alirio Hudson MD POINT OF CARE TEST ORDERABLES Performing Organization Address [facility] Co de Phone Number [facility] [place] [address] * (ABNORMAL) BLOOD GAS 2 ARTERIAL (05/12/2023 2:23 PM EDT) pH, Arterial 7.37 7.35 - 7.45 [facility] PCO2, Arterial 36 35 - 45 mmHg [facility] PO2, Arterial 102 85 - 104 mmHg [facility] Bicarbonate, Arterial 20.4 20.0 - 26.0 mmol/L [facility] Base Excess, Arterial -4.8(L) -3.0 - 3.0 mmol/L [facility] Hgb Blood Gas 12.7 11.7 - 15.5 g/dL [facility] Oxyhemoglobin, Arterial 95.4 94.0 - 97.0 % [facility] Carboxyhemoglob in, Arterial 0.3 % [facility] Comment: Nonsmokers: 0.5-1.5% COHB Smokers: Variable, but usually less than 10% Toxic: 20-30% COHB Lethal: Greater than 60% COHB Methemoglobin, Arterial 0.7 <=1.5 % [facility] Na Whole Blood 129(L) 135 - 145 mmol/L [facility] K Whole Blood 3.7 3.5 - 5.0 mmol/L [facility] Comment: Please note: Patients with WBC >100,000 may have falsely elevated Potassium levels. Contact the Clinical Chemistry Laboratory if there are any questions. ICa Whole Blood 1.05(L) 1.15 - 1.33 mmol/L [facility] Comment: Note: ??Total bilirubin higher than 20 mg/dL may lead to falsely low ionized calcium. CL Whole Blood 95(L) 98 - 107 mmol/L [facility] Gluc Whole Bld 168 65 - 199 mg/dL [facility] Comment:Diabetes: >=200 mg/d L plus symptoms. Lactate WB 1.8 0.5 - 2.2 mmol/L [facility] FIO2 Art 40 % [facility] PF Ratio Art 255 [facility] Blood 05/12/2023 2:23 PM EDT 05/12/2023 2:23 PM EDT Alirio Hudson MD POINT OF CARE TEST ORDERABLES [facility] [place] [address] * (ABNORMAL) Troponin (05/12/2023 2:05 PM EDT) Troponin-T, High Sensitivity 1,022(H) <=14 ng/L [facility] Comment: This patient's troponin T [...] troponin value can be found in the [facility] Test Catalog Troponin - [facility] Test Catalog Reference: Fourth [place] Definition of Myocardial Infarction. Journal of the [place] [employer] 2018;72:0785-7513 Blood 05/12/2023 2:05 PM EDT 05/12/2023 2:14 PM EDT Narrative Resulting Agency Comment Spec In Lab Alirio Hudson MD CHEMISTRY ORDERABLE S [facility] [place] [address] * (ABNORMAL) Hemoglobin (05/12/2023 2:05 PM EDT) Hemoglobin 8.5(L) 11.7 - 15.5 g/dL [facility] Blood 05/12/2023 2:05 PM EDT 05/12/2023 2:14 PM EDT Narrative Resulting Agency Comment Spec In Lab Alirio Hudson MD HEMATOLOGY ORDERABL ES Performing Organization Address [facility] Co de Phone Number [facility] [place] [address] * Potassium (05/12/2023 2:05 PM EDT) Potassium 3.9 3.5 - 5.0 mmol/L [facility] Comment: Please note: ??Patients with [...] CHEMISTRY ORDERABLE S Performing Organization Address [facility] Co de Phone Number [facility] [place] [address] * (ABNORMAL) BLOOD GAS 2 ARTERIAL (05/12/2023 11:05 AM EDT) pH, Arterial 7.34(L) 7.35 - 7.45 [facility] PCO2, Arterial 42 35 - 45 mmHg [facility] PO2, Arterial 73(L) 85 - 104 mmHg [facility] Bicarbonate, Arterial 22.1 20.0 - 26.0 mmol/L [facility] Base Excess, Arterial -3.6(L) -3.0 - 3.0 mmol/L [facility] Hgb Blood Gas 9.3(L) 11.7 - 15.5 g/dL [facility] Oxyhemoglobin, Arterial 89.3(L) 94.0 - 97.0 % [facility] Carboxyhemoglob in, Arterial 0.2 % [facility] Comment: Nonsmokers: 0.5-1.5% COHB Smokers: Variable, but usually less than 10% Toxic: 20-30% COHB Lethal: Greater than 60% COHB Methemoglobin, Arterial 0.9 <=1.5 % [facility] Na Whole Blood 131(L) 135 - 145 mmol/L [facility] K Whole Blood 3.8 3.5 - 5.0 mmol/L [facility] Comment: Please note: Patients with WBC >100,000 may have falsely elevated Potassium levels. Contact the Clinical Chemistry Laboratory if there are any questions. ICa Whole Blood 1.04(L) 1.15 - 1.33 mmol/L [facility] Comment: Note: ??Total bilirubin higher than 20 mg/dL may lead to falsely low ionized calcium. CL Whole Blood 96(L) 98 - 107 mmol/L [facility] Gluc Whole Bld 152 65 - 199 mg/dL [facility] Comment:Diabetes: >=200 mg/d L plus symptoms. Lactate WB 2.8(H) 0.5 - 2.2 mmol/L [facility] FIO2 Art 40 % [facility] PF Ratio Art 182 [facility] Blood 05/12/2023 11:0 5 AM EDT 05/12/2023 11:05 AM EDT Alirio Hudson MD POINT OF CARE TEST ORDERABLES Performing Organization Address City/State/[facility] Co de Phone Number [facility] [place] [address] * (ABNORMAL) BLOOD GAS 2 ARTERIAL (05/12/2023 10:14 AM EDT) pH, Arterial 7.18(Criti gabrielle) 7.35 - 7.45 [facility] Comment:Noted by surveyor instrument assistant. PCO2, Arterial 45 35 - 45 mmHg [facility] PO2, Arterial 186(H) 85 - 104 mmHg [facility] Bicarbonate, Arterial 16.2(L) 20.0 - 26.0 mmol/L [facility] Base Excess, Arterial -12.2(L) -3.0 - 3.0 mmol/L [facility] Hgb Blood Gas 10.0(L) 11.7 - 15.5 g/dL [facility] Oxyhemoglobin, Arterial 97.0 94.0 - 97.0 % [facility] Carboxyhemoglob in, Arterial 0.2 % [facility] Comment: Nonsmokers: 0.5-1.5% COHB Smokers: Variable, but usually less than 10% Toxic: 20-30% COHB Lethal: Greater than 60% COHB Methemoglobin, Arterial 0.9 <=1.5 % [facility] Na Whole Blood 129(L) 135 - 145 mmol/L [facility] K Whole Blood 3.6 3.5 - 5.0 mmol/L [facility] Comment: Please note: Patients with WBC >100,000 may have falsely elevated Potassium levels. Contact the Clinical Chemistry Laboratory if there are any questions. ICa Whole Blood 1.10(L) 1.15 - 1.33 mmol/L [facility] Comment: Note: ??Total bilirubin higher than 20 mg/dL may lead to falsely low ionized calcium. CL Whole Blood 97(L) 98 - 107 mmol/L [facility] Gluc Whole Bld 161 65 - 199 mg/dL [facility] Comment:Diabetes: >=200 mg/d L plus symptoms. Lactate WB 3.3(H) 0.5 - 2.2 mmol/L [facility] FIO2 Art 100 % [facility] PF Ratio Art 186 [facility] Blood 05/12/2023 10:1 4 AM EDT 05/12/2023 10:14 AM EDT Alirio Hudson MD POINT OF CARE TEST ORDERABLES Performing Organization Address City/State/[facility] Co de Phone Number [facility] [place] [address] * EKG 12 Lead (05/12/2023 10:10 AM EDT) Ventricular rate 116 BPM MUSE SYSTEM Atrial Rate 116 BPM MUSE SYSTEM P-R Interval 158 ms MUSE SYSTEM QRS Duration 114 ms MUSE SYSTEM Q-T Interval 348 ms MUSE SYSTEM QTC Calculated (Bezet) 483 ms MUSE SYSTEM Calculated P Theresa 37 degrees MUSE SYSTEM Calculated R Theresa 31 degrees MUSE SYSTEM Calculated T Theresa -138 degrees MUSE SYSTEM INTERPRETATION Sinus tachycardia with intermittent aberrant ventricular conduction Possible Left atrial enlargement Incomplete left bundle block Left ventricular hypertrophy with repolarization abnormality ( Sokolow-Orozco , [place] product ) ST & T wave abnormality in Inferolateral leads Abnormal ECG When compared with ECG of 10-MAY-2023 13:16, ST & T wave abnormality is more pronounced in inferolateral leads I personally reviewed the tracing and edited the fellows interpretation Confirmed by fellow MD Anuja, Jim ([id number]) on 05/12/2023 1:04:20 PM Confirmed by MD Mono, Eleni ([id number]) on 05/12/2023 9:28:34 PM MUSE SYSTEM 05/12/2023 [...] questions please contact the health animal care taker that requested your imaging first. ? Electronically signed by: Chyna Johnson MD, [facility] ??([phone]), at 05/12/2023 10:08 AM Narrative 05/12/2023 10:08 AM EDT EXAMINATION: XR CHEST ONE VIEW CLINICAL HISTORY: Post TAVR TECHNIQUE: 1 view of the chest COMPARISON: Chest radiograph from earlier today FINDINGS: Interval placement of endotracheal tube with tip terminating 2 cm above the shira. Interval placement of enteric tube projecting along the expected course of the esophagus and outside the qbjkf-nl-xrjp. Interval retraction of right IJ approach pulmonary [...] expected course ofthe esophagus and outside the nzkhf-zk-fnlo. Interval retraction of right IJ approach pulmonary [...] have questions please contactthe health animal care taker that requested your imaging first. Electronically signed by: Chyna Johnson MD, [facility]([phone]), at 05/12/2023 10:08 AM Alirio Hudson MD [...] 1955 ? Height: 154 cm ? Account: [id number] Age: 67 yrs ? Weight: 75 kg Gender: Female ?BSA: 1.7 m2 Ordering Physician: RADHA HOLLINS Referring Physician: RADHA HOLLINS Performed By: Dilma Bee RDCS Reason For Study: Guidance for TAVR procedure Exam Location: [facility]. Interpretation Summary PRE TAVR: There [...] mL/m2. POST TAVR: Normal function of the lufmo-ql-iaagj prosthesis. See below for hemodynamic parameters. Slight improvement in left and right ventricular systolic function. LVEF now 20-25%. No pericardial effusion. See report for additional findings. Procedure Limited - 51357. Doppler - 09838. Color Doppler - 79570. Left Ventricle Left ventricle is of normal [...] Date: 307:33 AMBP: 96/63 mmHg Patient Location: [address] : 1955 Height: 154 cm Account: [id number] Age: 67 yrs Weight: 75 kg Gender: Female BSA: 1.7 m2 Ordering Physician: RADHA HOLLINS Referring Physician: RADHA HOLLINS Performed By: Dilma Bee RDCS Reason For Study: Guidance for TAVR procedure Exam Location: [facility]. Interpretation Summary PRE TAVR: There [...] 28mL/m2. POST TAVR: Normal function of the ygbva-kp-dcvve prosthesis. See belowfor hemodynamic parameters. Slight improvement in left and right ventricularsystolic function. LVEF now 20-25%. No pericardial effusion. See report for additional findings. Procedure Limited - 16487. Doppler - 98688. Color Doppler - 58860. Left Ventricle Left ventricle is of normal [...] Modality Other Narrative 05/12/2023 2:37 PM EDT ?[facility] ? Cardiac Catheterization/Intervention Report ? Patient Name: Kirstie, Purnima M. ? Procedure Date: 05/12/2023 ? A #: [id number] ? Primary Physician: Antelmo Sharma ? Case #: [id number] ? File Name: [id number] ? Catheterization Order Number: [id number] ? [facility] ? Final Report [place], [place] ? Patient Name: ? Purnima M. Kirstie ? ID#: ?[id number] ? : ?1955 ? Procedure Date: ? May 12, 2023 ? Case #: ? [id number] ? Room: ? 6 ? Case Physicians: ?Antelmo Sharma M.D. ?Start: ?08:03 ?Alirio Hudson M.D. ?Admission: ??05/08/2023 ?Lynda Mcgowan M.D. ? Discharge: ??05/22/2023 ?Fellow: ? Kristied Bhavna Tejeda. ? Referring Physician: ??Mario Alberto Chin M.D. ? Procedures: ?* Coronary Angiography ?* Left Heart Catheterization ?* Coronary Stent Insertion ?* Transcatheter Aortic Valve Replacement ?* Vascular Closure Device Deployment ?* Temporary Pacemaker Insertion In Nursing Agency Manager ?* Endotracheal Intubation By Non-Cath Physician [...] was designated as ASA Class IV. The [facility] clinical ?frailty scale is 4: Vulnerable. ? [...] ??A premounted 4.00 x 30 mm Nils Drew (MINNA) was ? deployed with a maximum [...] calculated STS risk score was 30.1%. A mfsim-ql-vbtxf ?procedure was performed on the pre-existing bioprosthetic stented ?prosthesis. The priority of the kqcqx-xt-nmdic procedure was Elective. ?The procedure was performed under Moderate sedation performed by Lynda Ramires ?Adair Mcgowan (see anesthesia report for additional details). Alirio Powell ?Adair Hudson participated in the case (see Cardiac Surgery report for ?additional details). ?The TAVR sheath was a 14 Fr Corona eSheath Introducer and the access ?site was femoral. Rapid ventricular pacing was performed. ?An Corona Ali 3 Ultra RESILIA 23 mm THV (s/s=[id number]) transcatheter ?valve was inserted using standard technique. [...] to nor was it given in the ?confectionery laboratory manager. ?Recommended anti-platelet/anti-thrombotic regimen: ?Continue aspirin 81 mg daily for indefinitely. ?These recommendations are made at the time of the intervention. Patient ?and provider preferences or a changing clinical situation may require ?modification of this regimen. Consult [facility] Interventional Cardiology for ?questions. ? Conclusions: ?* [...] regimen. ? Comments: ?Successful right transfemoral TAVR Addwo-da-Nqvny with a 23 mm Lai 3 ?THV. [...] insertion-coronary, access site angiography, ?temporary pacemaker in confectionery laboratory manager, intubation-non cath physician, vascular ?closure device, transthoracic echo ??and TAVR. Dr. Alirio Hudson M.D. ?performed the left heart catheterization, access site angiography, ?temporary pacemaker in confectionery laboratory manager, vascular closure device, transthoracic ?echo , TAVR and CPR during cath. Dr. Lynda Mcgowan M.D. performed the ABG, ?anesthesia and intubation-non cath physician. ? Antelmo Sharma M.D. ? Electronically Signed by: Antelmo Sharma M.D. ? Report Finalized: 05/12/2023 ??14:31 ? Report Last Ammended: 07/01/2023 ??11:30 ? Procedure Note Antelmo Sharma MD - 07/01/2023 [facility] Cardiac Catheterization/Intervention Report Patient Name: Purnima Thacker Procedure Date: 05/12/2023 A #: [id number] Primary Physician: Antelmo Sharma Case #: [id number] File Name: [id number] Catheterization Order Number: [id number] [facility] FinalReport [place], [place] Patient Name: Purnima Thacker ID#:[id number] :1955 Procedure Date: May 12, 2023 Case #: [id number] Room: 6 Case Physicians: Antelmo Sharma M.D. Start: 08:03 Alirio Hudson M.D. Admission:05/08/2023 Lynda Mcgowan M.D. Discharge:05/22/2023 Fellow: Rebekah Tejeda M.D. Referring Physician: Mario Alberto Chin M.D. Procedures: * Coronary Angiography * Left Heart Catheterization * Coronary Stent Insertion * Transcatheter Aortic Valve Replacement * Vascular Closure Device Deployment * Temporary Pacemaker Insertion In Nursing Agency Manager * Endotracheal Intubation By Non-Cath Physician [...] A premounted 4.00 x 30 mm Nils Drew (MINNA) was deployed with a maximum inflation [...] calculated STS risk score was 30.1%. A ttqxu-nt-sevwk procedure was performed on the pre-existing bioprosthetic stented prosthesis. The priority of the llfpu-lf-ftzaj procedure wasElective. The procedure was performed under Moderate sedation performed byLynda Mcgowan M.D. (see anesthesia report for additional details). Alirio Hudson M.D. participated in the case (see Cardiac Surgery reportfor additional details). The TAVR sheath was a 14 Fr Corona eSheath Introducer and theaccess site was femoral. Rapid ventricular pacing was performed. An Corona Lai 3 Ultra RESILIA 23 mm THV (s/x=[id number])transcatheter valve was inserted using standard technique. The [...] prior to nor was it given inthe confectionery laboratory manager. Recommended anti-platelet/anti-thrombotic regimen: Continue aspirin 81 mg daily for indefinitely. These recommendations are made at the time of the intervention.Patient and provider preferences or a changing clinical situation mayrequire modification of this regimen. Consult [facility] Interventional Cardiologyfor questions. Conclusions: * Nonobstructive disease [...] this regimen. Comments: Successful right transfemoral TAVR Remyx-ir-Gohpa with a 23 mmSapien 3 THV. We [...] insertion-coronary, access site angiography, temporary pacemaker in confectionery laboratory manager, intubation-non cath physician,vascular closure device, transthoracic echo and TAVR. Dr. Alirio Hudson M.D. performed the left heart catheterization, access site angiography, temporary pacemaker in confectionery laboratory manager, vascular closure device,transthoracic echo , [...] pH, POC 7.20(Crit ical) 7.35 - 7.45 [facility] Comment:Critical value OK, C C Lab. pCO2, POC 42 35 - 45 mmHg [facility] pO2, POC 260(H) 85 - 104 mmHg [facility] Base Excess, POC -11.0(L) -3.0 - 3.0 mmol/L [facility] Bicarbonate, POC 16.7(L) 20.0 - 26.0 mmol/L [facility] Sodium, POC 129(L) 135 - 145 mmol/L [facility] POC Potassium 3.8 3.5 - 5.0 mmol/L [facility] Ionized Calcium, POC 1.12(L) 1.15 - 1.33 mmol/L [facility] POC Hematocrit 23.0(L) 34.0 - 45.0 % [facility] POC Calc Hgb 7.8(L) 11.2 - 15.7 g/dL [facility] Comment:The calculation of h emoglobin from hematocrit assumes a normal MCHC. POC Bgas Loc CC Lab [facility] Blood 05/12/2023 8:50 AM EDT 05/13/2023 12:00 PM EDT Alirio Hudson MD CHEMISTRY ORDERABLE S [facility] [place] [place] [address] * (ABNORMAL) Point of Care Blood Gas Historical (05/12/2023 8:10 AM EDT) pH, POC 7.27(Crit ical) 7.35 - 7.45 [facility] Comment:Critical value OK, C C Lab. pCO2, POC 37 35 - 45 mmHg [facility] pO2, POC 29(Critic al) 85 - 104 mmHg [facility] Comment:Critical value OK, C C Lab. Base Excess, POC -10.0(L) -3.0 - 3.0 mmol/L [facility] Bicarbonate, POC 16.7(L) 20.0 - 26.0 mmol/L [facility] Sodium, POC 123(L) 135 - 145 mmol/L [facility] POC Potassium 4.0 3.5 - 5.0 mmol/L [facility] Ionized Calcium, POC 1.12(L) 1.15 - 1.33 mmol/L [facility] POC Hematocrit 27.0(L) 34.0 - 45.0 % [facility] POC Calc Hgb 9.2(L) 11.2 - 15.7 g/dL [facility] Comment:The calculation of h emoglobin from hematocrit assumes a normal MCHC. POC Bgas Loc CC Lab [facility] Blood 05/12/2023 8:10 AM EDT 05/13/2023 12:00 PM EDT Alirio Hudson MD CHEMISTRY ORDERABLE S Performing Organization Address City/[facility]/ZIP Co de Phone Number [facility] [place] [place] [address] * (ABNORMAL) Lactate, whole blood, send to lab ([facility]) (05/12/2023 7:00 AM EDT) Lactate WB 2.4(H) 0.5 - 2.2 mmol/L [facility] Blood 05/12/2023 7:00 AM EDT 05/12/2023 7:09 AM EDT Narrative Resulting Agency Comment Spec In Lab Radha Hollins MD CHEMISTRY ORDERABL ES Performing Organization Address [facility] Co de Phone Number [facility] [place] [address] * (ABNORMAL) Comprehensive metabolic panel (non-fasting) (05/12/2023 6:00 AM EDT) Glucose 167 65 - 199 mg/dL [facility] Comment:Diabetes: >=200 mg/d L plus symptoms Blood Urea Nitrogen 67(H) 8 - 18 mg/dL [facility] Creatinine 2.01(H) 0.70 - 1.20 mg/dL [facility] Sodium 131(L) 135 - 145 mmol/L [facility] Potassium 4.3 3.5 - 5.0 mmol/L [facility] Comment: Please note: ??Patients with WBC >100,000 may have falsely elevated Potassium levels. ??For accurate Potassium quantification in these patients send serum separator tube (gold top) for subsequent determinations. ??Contact the Clinical Chemistry Laboratory if there are any questions. Chloride 97(L) 98 - 107 mmol/L [facility] Carbon Dioxide 14(L) 22 - 31 mmol/L [facility] Anion Gap 20(H) 5 - 15 mmol/L [facility] Calcium 8.6 8.5 - 10.5 mg/dL [facility] Protein, Total 6.3 6.1 - 8.0 g/dL [facility] Albumin 3.5 3.2 - 5.2 g/dL [facility] Aspartate Aminotransferase 1,435(H) 0 - 30 unit/L [facility] Alanine Aminotransferase 1,174(H) 0 - 30 unit/L [facility] Alkaline Phosphatase 100 35 - 105 unit/L [facility] Bilirubin, Total 0.9 0.2 - 1.3 mg/dL [facility] Est Glomerular Filtration Rate 27(L) >=60 mL/min/1. 73 m?? [facility] Comment: This patient's estimated GFR [...] Lab Radha Hollins MD CHEMISTRY ORDERABL ES [facility] [place] [address] * (ABNORMAL) Coox2 (05/12/2023 5:08 AM EDT) pO2, Coox 24 mmHg [facility] Hgb Blood Gas 10.4(L) 11.7 - 15.5 g/dL [facility] Oxyhemoglobin, Coox 30.7 % [facility] Carboxyhemoglo bin, Coox 0.3 % [facility] Comment: Nonsmokers: 0.5-1.5% COHB Smokers: Variable, but usually less than 10% Toxic: 20-30% COHB Lethal: Greater than 60% COHB Methemoglobin, Coox 0.8 <=1.5 % [facility] Source Coox Mixed Venous [facility] Blood 05/12/2023 5:08 AM EDT 05/12/2023 5:08 AM EDT Radha Hollins MD POINT OF CARE TEST ORDERABLES Performing Organization Address City/[facility] Co de Phone Number [facility] [place] [address] * (ABNORMAL) Coox2 (05/12/2023 3:21 AM EDT) pO2, Coox 25 mmHg [facility] Hgb Blood Gas 10.8(L) 11.7 - 15.5 g/dL [facility] Oxyhemoglobin, Coox 32.7 % [facility] Carboxyhemoglo bin, Coox 0.3 % [facility] Comment: Nonsmokers: 0.5-1.5% COHB Smokers: Variable, but usually less than 10% Toxic: 20-30% COHB Lethal: Greater than 60% COHB Methemoglobin, Coox 0.7 <=1.5 % [facility] Source Coox Mixed Venous [facility] Blood 05/12/2023 3:21 AM EDT 05/12/2023 3:21 AM EDT Radha Hollins MD POINT OF CARE TEST ORDERABLES Performing Organization Address [facility] Co de Phone Number [facility] [place] [address] * (ABNORMAL) BLOOD GAS 2 ARTERIAL (05/12/2023 3:18 AM EDT) pH, Arterial 7.34(L) 7.35 - 7.45 [facility] PCO2, Arterial 30(L) 35 - 45 mmHg [facility] PO2, Arterial 72(L) 85 - 104 mmHg [facility] Bicarbonate, Arterial 16.0(L) 20.0 - 26.0 mmol/L [facility] Base Excess, Arterial -9.8(L) -3.0 - 3.0 mmol/L [facility] Hgb Blood Gas 11.0(L) 11.7 - 15.5 g/dL [facility] Oxyhemoglobin, Arterial 89.8(L) 94.0 - 97.0 % [facility] Carboxyhemoglob in, Arterial 0.3 % [facility] Comment: Nonsmokers: 0.5-1.5% COHB Smokers: Variable, but usually less than 10% Toxic: 20-30% COHB Lethal: Greater than 60% COHB Methemoglobin, Arterial 0.7 <=1.5 % [facility] Na Whole Blood 131(L) 135 - 145 mmol/L [facility] K Whole Blood 4.2 3.5 - 5.0 mmol/L [facility] Comment: Please note: Patients with WBC >100,000 may have falsely elevated Potassium levels. Contact the Clinical Chemistry Laboratory if there are any questions. ICa Whole Blood 1.12(L) 1.15 - 1.33 mmol/L [facility] Comment: Note: ??Total bilirubin higher than 20 mg/dL may lead to falsely low ionized calcium. CL Whole Blood 100 98 - 107 mmol/L [facility] Gluc Whole Bld 160 65 - 199 mg/dL [facility] Comment:Diabetes: >=200 mg/d L plus symptoms. Lactate WB 2.7(H) 0.5 - 2.2 mmol/L [facility] Flow Art 5.0 LPM [facility] Blood 05/12/2023 3:18 AM EDT 05/12/2023 3:18 AM EDT Radha Hollins MD POINT OF CARE TEST ORDERABLES [facility] [place] [address] * (ABNORMAL) Coox2 (05/12/2023 1:14 AM EDT) pO2, Coox 28 mmHg [facility] Hgb Blood Gas 10.9(L) 11.7 - 15.5 g/dL [facility] Oxyhemoglobin, Coox 37.3 % [facility] Carboxyhemoglo bin, Coox 0.3 % [facility] Comment: Nonsmokers: 0.5-1.5% COHB Smokers: Variable, but usually less than 10% Toxic: 20-30% COHB Lethal: Greater than 60% COHB Methemoglobin, Coox 0.5 <=1.5 % [facility] Source Coox Mixed Venous [facility] Blood 05/12/2023 1:14 AM EDT 05/12/2023 1:14 AM EDT Radha Hollins MD POINT OF CARE TEST ORDERABLES [facility] [place] [place] [address] * (ABNORMAL) BLOOD GAS 2 ARTERIAL (05/12/2023 1:06 AM EDT) pH, Arterial 7.34(L) 7.35 - 7.45 [facility] PCO2, Arterial 30(L) 35 - 45 mmHg [facility] PO2, Arterial 81(L) 85 - 104 mmHg [facility] Bicarbonate, Arterial 15.7(L) 20.0 - 26.0 mmol/L [facility] Base Excess, Arterial -10.1(L) -3.0 - 3.0 mmol/L [facility] Hgb Blood Gas 11.0(L) 11.7 - 15.5 g/dL [facility] Oxyhemoglobin, Arterial 92.3(L) 94.0 - 97.0 % [facility] Carboxyhemoglob in, Arterial 0.2 % [facility] Comment: Nonsmokers: 0.5-1.5% COHB Smokers: Variable, but usually less than 10% Toxic: 20-30% COHB Lethal: Greater than 60% COHB Methemoglobin, Arterial 0.6 <=1.5 % [facility] Na Whole Blood 131(L) 135 - 145 mmol/L [facility] K Whole Blood 4.2 3.5 - 5.0 mmol/L [facility] Comment: Please note: Patients with WBC >100,000 may have falsely elevated Potassium levels. Contact the Clinical Chemistry Laboratory if there are any questions. ICa Whole Blood 1.13(L) 1.15 - 1.33 mmol/L [facility] Comment: Note: ??Total bilirubin higher than 20 mg/dL may lead to falsely low ionized calcium. CL Whole Blood 99 98 - 107 mmol/L [facility] Gluc Whole Bld 132 65 - 199 mg/dL [facility] Comment:Diabetes: >=200 mg/d L plus symptoms. Lactate WB 2.7(H) 0.5 - 2.2 mmol/L [facility] Flow Art 5.0 LPM [facility] Blood 05/12/2023 1:06 AM EDT 05/12/2023 1:06 AM EDT Radha Hollins MD POINT OF CARE TEST ORDERABLES [facility] [place] [address] * (ABNORMAL) Differential, Automated (05/12/2023 1:05 AM EDT) Neutrophil % 83.3 % [facility] Neutrophil Absolute 7.49(H) 1.70 - 6.10 x10(3)/mc L [facility] Lymph % 7.1 % [facility] Lymphocytes Abs 0.6(L) 0.9 - 3.2 x10(3)/mc L [facility] Monocyte % 8.9 % [facility] Monocyte Abs 0.8 0.3 - 0.9 x10(3)/mc L [facility] Eos % 0.0 % [facility] Eosinophils Abs 0.0 0.0 - 0.4 x10(3)/mc L [facility] Basophil % 0.1 % [facility] Baso Absolute 0.0 0.0 - 0.1 x10(3)/mc L [facility] Immature Gran % 0.60 % [facility] Comment: Immature granulocytes(IG's)percentage and absolute count will include metamyelocytes, myelocytes, and promyelocytes. Blood smears from CBCs yielding IG's will be scanned manually for concordance. If this scan disagrees with the automated IG or if promyelocytes are noted, a manual differential will be performed. Immature Gran Absolute 0.05(H) 0.00 - 0.04 x10(3)/mc L [facility] Blood 05/12/2023 1:05 AM EDT 05/12/2023 1:15 AM EDT Narrative Resulting Agency Comment Spec In Lab Gianni Fletcher MD HEMATOLOGY ORDERABLE S [facility] [place] [address] * (ABNORMAL) Hemogram (05/12/2023 1:05 AM EDT) White Blood Cell 9.0 4.0 - 9.5 x10(3)/mc L [facility] Red Blood Cell 3.01(L) 4.00 - 5.21 x10(6)/mc L [facility] Hemoglobin 9.8(L) 11.7 - 15.5 g/dL [facility] Hematocrit 28.7(L) 35.7 - 45.8 % [facility] Mean Cell Volume 95.3(H) 82.6 - 94.4 fL [facility] Mean Cell Hemoglobin 32.6(H) 27.1 - 32.0 pg [facility] Mean Cell Hemoglobin Concentration 34.1 31.7 - 35.0 g/dL [facility] Platelet 186 145 - 357 x10(3)/mc L [facility] RDW Standard Deviation 43.7 37.0 - 46.0 fL [facility] RDW coefficient of variation 12.7 11.5 - 14.1 % [facility] Mean Platelet Volume 10.3 7.6 - 12.9 fL [facility] NRBC% auto 0.0 % [facility] NRBC Absolute 0.000 0.000 - 0.000 x10(3)/mc L [facility] Blood 05/12/2023 1:05 AM EDT 05/12/2023 1:15 AM EDT Narrative Resulting Agency Comment Spec In Lab Gianni Fletcher MD HEMATOLOGY ORDERABLE S [facility] [place] [address] * (ABNORMAL) Comprehensive metabolic panel (non-fasting) (05/12/2023 1:05 AM EDT) Glucose 141 65 - 199 mg/dL [facility] Comment:Diabetes: >=200 mg/d L plus symptoms Blood Urea Nitrogen 63(H) 8 - 18 mg/dL [facility] Creatinine 1.86(H) 0.70 - 1.20 mg/dL [facility] Sodium 131(L) 135 - 145 mmol/L [facility] Potassium 4.4 3.5 - 5.0 mmol/L [facility] Comment: Please note: ??Patients with WBC >100,000 may have falsely elevated Potassium levels. ??For accurate Potassium quantification in these patients send serum separator tube (gold top) for subsequent determinations. ??Contact the Clinical Chemistry Laboratory if there are any questions. Chloride 96(L) 98 - 107 mmol/L [facility] Carbon Dioxide 14(L) 22 - 31 mmol/L [facility] Anion Gap 21(H) 5 - 15 mmol/L [facility] Calcium 9.0 8.5 - 10.5 mg/dL [facility] Protein, Total 6.6 6.1 - 8.0 g/dL [facility] Albumin 3.9 3.2 - 5.2 g/dL [facility] Aspartate Aminotransferase 1,227(H) 0 - 30 unit/L [facility] Alanine Aminotransferase 1,097(H) 0 - 30 unit/L [facility] Alkaline Phosphatase 108(H) 35 - 105 unit/L [facility] Bilirubin, Total 1.0 0.2 - 1.3 mg/dL [facility] Est Glomerular Filtration Rate 29(L) >=60 mL/min/1. 73 m?? [facility] Comment: This patient's estimated GFR [...] Lab Radha Hollins MD CHEMISTRY ORDERABL ES [facility] [place] [address] * XR Chest One View (05/12/2023 1:00 [...] questions please contact the health animal care taker that requested your imaging first. ? Narrative [...] have questions please contactthe health animal care taker that requested your imaging first. Radha Hollins MD IMG DX ORDERABLES * (ABNORMAL) Coox2 (05/12/2023 12:30 AM EDT) pO2, Coox 22 mmHg [facility] Hgb Blood Gas 10.9(L) 11.7 - 15.5 g/dL [facility] Oxyhemoglobin, Coox 25.1 % [facility] Carboxyhemoglo bin, Coox 0.3 % [facility] Comment: Nonsmokers: 0.5-1.5% COHB Smokers: Variable, but usually less than 10% Toxic: 20-30% COHB Lethal: Greater than 60% COHB Methemoglobin, Coox 1.4 <=1.5 % [facility] Source Coox Mixed Venous [facility] Blood 05/12/2023 12:3 0 AM EDT 05/12/2023 12:30 AM EDT Radha Hollins MD POINT OF CARE TEST ORDERABLES [facility] [address] [place] [address] * XR Chest One View (05/11/2023 11:45 [...] questions please contact the health animal care taker that requested your imaging first. ? Narrative [...] have questions please contactthe health animal care taker that requested your imaging first. Radha Hollins MD IMG DX ORDERABLES * (ABNORMAL) Lactate, whole blood, send to lab ([facility]) (05/11/2023 7:40 PM EDT) Lactate WB 4.8(Critic al) 0.5 - 2.2 mmol/L [facility] Comment:Called by: [facility], Read back by: Magdalena Baires, Date/Time:05/11/23 19:54. Blood 05/11/2023 7:40 PM EDT 05/11/2023 7:49 PM EDT Narrative Resulting Agency Comment Spec In Lab Radha Hollins MD CHEMISTRY ORDERABL ES Performing Organization Address [facility]/ZIP Co de Phone Number [facility] [place] [address] * Urine culture (05/11/2023 7:22 PM EDT) Pathologist [facility] Urine Culture 50,000-99,000 cfu/ml Normal mucosal herman Susceptibilit y testing not routinely performed for Coagulase Negative Staphylococcu s species and other Gram Positive organisms from urine. [facility] Clean Catch Urine 05/11/2023 7:22 PM EDT 05/11/2023 8:50 PM EDT Narrative Resulting Agency Comment Spec In Lab Brody Dale Eusebio OSBORN MICROBIOLOGY - GENE RAL ORDERABLES Performing Organization Address [facility] Co de Phone Number [facility] [place] [address] * (ABNORMAL) Urinalysis Microscopic Exam (05/11/2023 7:22 PM EDT) Pathologist [facility] RBC, Urine 2 0 - 4 /HPF [facility] WBC, Urine >100(H) 0 - 5 /HPF [facility] Bacteria, Urine Occasional (A) None /HPF [facility] Squamous Epithelial Cells Raw Data, Urine 5(H) <=4 /HPF [facility] Hyaline Casts, Urine 3(H) 0 - 2 /LPF [facility] Clean Catch Urine 05/11/2023 7:22 PM EDT 05/11/2023 7:31 PM EDT Narrative Resulting Agency Comment Spec In Lab Brody Elvia Eusebio LEMAN URINE ORDERABLES Performing Organization Address [facility]/ZIP Co de Phone Number [facility] [place] [address] * (ABNORMAL) Urinalysis with reflex Culture (05/11/2023 7:22 PM EDT) Glucose, Urine Dipstick Negative Negative mg/dL [facility] Protein, Urine Dipstick Trace(A) Negative mg/dL [facility] Bilirubin, Urine Dipstick Negative Negative mg/dL [facility] Comment: Clinical correlation required for positive Urine Bilirubin results as false positive may occur with some drugs and drug related products. If a false positive is suspected a serum total bilirubin should be considered if clinically indicated. Urobilinogen, Urine Dipstick Normal Normal mg/dL [facility] pH, Urn (dipstick) 5.0 5.0 - 8.0 [facility] Blood, Urine Dipstick Trace(A) Negative mg/dL [facility] Ketone, Urine Dipstick Negative Negative mg/dL [facility] Nitrite, Urine Dipstick Negative Negative [facility] Leukocytes, Urine Dipstick Moderate(A) Negative mcL [facility] Appearance, Urine Dipstick Cloudy(A) Clear [facility] Specific [place] Urine Automated >=1.030(A) 1.005 - 1.030 [facility] Color, Urine Dipstick Yellow Yellow [facility] Reflex to Culture Yes [facility] Clean Catch Urine 05/11/2023 7:22 PM EDT 05/11/2023 7:31 PM EDT Narrative Resulting Agency Comment Spec In Lab Brody Kaplan APRN URINE ORDERABLES Performing Organization Address [facility]/ZIP Co de Phone Number [facility] [place] [address] * (ABNORMAL) pro-Brain Natriuretic Peptide (05/11/2023 7:11 PM EDT) NT-proBNP >35,000(H) <=124 pg/mL [facility] Blood 05/11/2023 7:11 PM EDT 05/11/2023 7:26 PM EDT Narrative Resulting Agency Comment Spec In Lab Radha Hollins MD CHEMISTRY ORDERABL ES Performing Organization Address City/[facility]/ZIP Co de Phone Number [facility] [place] [address] * (ABNORMAL) Lactate, whole blood, send to lab ([facility]) (05/11/2023 2:47 PM EDT) Lactate WB 2.9(H) 0.5 - 2.2 mmol/L [facility] Blood 05/11/2023 2:47 PM EDT 05/11/2023 2:53 PM EDT Narrative Resulting Agency Comment Spec In Lab Juan Luis Gonzalez MD CHEMISTRY ORDERABLES [facility] [place] [address] * (ABNORMAL) CT Angiogram Abdomen & Pelvis [...] questions please contact the health animal care taker that requested your imaging first. ? Narrative [...] questions please contact the health animal care taker that requested your imaging first. ? Electronically signed by: Cullen Narayanan MD, [facility] ([phone]), at 05/11/2023 4:37 PM Narrative 05/11/2023 4:37 [...] 610 mm2 Circumference: 88 mm Calcification: Mild Nkoejgk-ep-ykmkukwa height: Left: 6.2 mm Right: 5.8 mm THORACIC AORTA Description: Normal course and caliber. ??Mild diffuse atherosclerotic changes. No acute aortopathy noted. Senior Security Analyst dimensions: Aortic root: 27.6 mm Max ascending aorta: 30.5 mm x 27.7 mm Suggested fluoroscopic angulation based on line extending through the nadirs of the three sinuses of Valsalva, set equidistant: ?? MOZAMBICAN ??9 degrees; cranial 7 degrees MITRAL: Mitral [...] 610 mm2 Circumference: 88 mm Calcification: Mild Lczwsln-ax-rrppigrq height: Left: 6.2 mm Right: 5.8 mm THORACIC AORTA Description: Normal course and caliber. Mild diffuse atheroscleroticchanges. No acute aortopathy noted. Senior Security Analyst dimensions: Aortic root: 27.6 mm Max ascending aorta: 30.5 mm x 27.7 mm Suggested fluoroscopic angulation based on line extending through thenadirs of the three sinuses of Valsalva, set equidistant: MOZAMBICAN 9 degrees; cranial 7 degrees MITRAL: Mitral [...] have questions please contactthe health animal care taker that requested your imaging first. Electronically signed by: Cullen Narayanan MD, [facility]([phone]), at 05/11/2023 4:37 PM Antelmo Sharma MD IMG CT ORDERABLES * (ABNORMAL) Lactate, whole blood, send to lab ([facility]) (05/11/2023 9:29 AM EDT) Lactate WB 3.1(H) 0.5 - 2.2 mmol/L [facility] Blood 05/11/2023 9:29 AM EDT 05/11/2023 9:38 AM EDT Narrative Resulting Agency Comment Spec In Lab Juan Luis Gonzalez MD CHEMISTRY ORDERABLES [facility] [place] [address] * (ABNORMAL) Differential, Automated (05/11/2023 4:42 AM EDT) Neutrophil % 78.1 % [facility] Neutrophil Absolute 5.46 1.70 - 6.10 x10(3)/mc L [facility] Lymph % 10.6 % [facility] Lymphocytes Abs 0.7(L) 0.9 - 3.2 x10(3)/mc L [facility] Monocyte % 9.6 % [facility] Monocyte Abs 0.7 0.3 - 0.9 x10(3)/mc L [facility] Eos % 0.0 % [facility] Eosinophils Abs 0.0 0.0 - 0.4 x10(3)/mc L [facility] Basophil % 0.4 % [facility] Baso Absolute 0.0 0.0 - 0.1 x10(3)/mc L [facility] Immature Gran % 1.30 % [facility] Comment: Immature granulocytes(IG's)percentage and absolute count will include metamyelocytes, myelocytes, and promyelocytes. Blood smears from CBCs yielding IG's will be scanned manually for concordance. If this scan disagrees with the automated IG or if promyelocytes are noted, a manual differential will be performed. Immature Gran Absolute 0.09(H) 0.00 - 0.04 x10(3)/mc L [facility] Blood 05/11/2023 4:42 AM EDT 05/11/2023 4:49 AM EDT Narrative Resulting Agency Comment Spec In Lab Klaudia Reid MD HEMATOLOGY OR DERABLES Performing Organization Address City/[facility] Co de Phone Number [facility] [place] [address] * (ABNORMAL) Hemogram (05/11/2023 4:42 AM EDT) White Blood Cell 7.0 4.0 - 9.5 x10(3)/mc L [facility] Red Blood Cell 3.44(L) 4.00 - 5.21 x10(6)/[facility] Hemoglobin 11.1(L) 11.7 - 15.5 g/dL [facility] Hematocrit 32.7(L) 35.7 - 45.8 % [facility] Mean Cell Volume 95.1(H) 82.6 - 94.4 fL [facility] Mean Cell Hemoglobin 32.3(H) 27.1 - 32.0 pg [facility] Mean Cell Hemoglobin Concentration 33.9 31.7 - 35.0 g/dL [facility] Platelet 165 145 - 357 x10(3)/mc L [facility] RDW Standard Deviation 43.1 37.0 - 46.0 fL [facility] RDW coefficient of variation 12.7 11.5 - 14.1 % [facility] Mean Platelet Volume 10.1 7.6 - 12.9 fL [facility] NRBC% auto 0.0 % [facility] NRBC Absolute 0.000 0.000 - 0.000 x10(3)/ L [facility] Blood 05/11/2023 4:42 AM EDT 05/11/2023 4:49 AM EDT Narrative Resulting Agency Comment Spec In Lab Klaudia Reid MD HEMATOLOGY OR DERABLES Performing Organization Address [facility] Co de Phone Number [facility] [place] [address] * Heparin (unfractionated) Level (05/11/2023 4:42 AM EDT) UF Heparin 0.46 IU/mL [facility] Comment: Heparin [...] LES Performing Organization Address [facility] Co de Phone Number [facility] [place] [address] * (ABNORMAL) Comprehensive metabolic panel (non-fasting) (05/11/2023 4:42 AM EDT) Glucose 143 65 - 199 mg/dL [facility] Comment:Diabetes: >=200 mg/d L plus symptoms Blood Urea Nitrogen 42(H) 8 - 18 mg/dL [facility] Creatinine 1.24(H) 0.70 - 1.20 mg/dL [facility] Sodium 134(L) 135 - 145 mmol/L [facility] Potassium 4.6 3.5 - 5.0 mmol/L [facility] Comment: Please note: ??Patients with WBC >100,000 may have falsely elevated Potassium levels. ??For accurate Potassium quantification in these patients send serum separator tube (gold top) for subsequent determinations. ??Contact the Clinical Chemistry Laboratory if there are any questions. Chloride 99 98 - 107 mmol/L [facility] Carbon Dioxide 14(L) 22 - 31 mmol/L [facility] Anion Gap 21(H) 5 - 15 mmol/L [facility] Calcium 9.6 8.5 - 10.5 mg/dL [facility] Protein, Total 7.2 6.1 - 8.0 g/dL [facility] Albumin 3.7 3.2 - 5.2 g/dL [facility] Aspartate Aminotransferase 144(H) 0 - 30 unit/L [facility] Comment:result rechecked-ss[facility] Alanine Aminotransferase 130(H) 0 - 30 unit/L [facility] Comment:result rechecked-[facility] Alkaline Phosphatase 72 35 - 105 unit/L [facility] Bilirubin, Total 0.8 0.2 - 1.3 mg/dL [facility] Est Glomerular Filtration Rate 48(L) >=60 mL/min/1. 73 m?? [facility] Comment: This patient's estimated GFR [...] Lab Radha Hollins MD CHEMISTRY ORDERABL ES [facility] [place] [address] * EKG 12 Lead (05/10/2023 1:16 PM EDT) Ventricular rate 118 BPM MUSE SYSTEM Atrial Rate 118 BPM MUSE SYSTEM P-R Interval 152 ms MUSE SYSTEM QRS Duration 104 ms MUSE SYSTEM Q-T Interval 316 ms MUSE SYSTEM QTC Calculated (Bezet) 442 ms MUSE SYSTEM Calculated P Theresa 29 degrees MUSE SYSTEM Calculated R Theresa 18 degrees MUSE SYSTEM Calculated T Theresa -173 degrees MUSE SYSTEM INTERPRETATION Sinus tachycardia Minimal voltage criteria for LVH, may be normal variant ( [place] product ) Septal infarct , age undetermined ST & T wave abnormality, consider lateral ischemia Abnormal ECG When compared with ECG of 10-MAY-2023 07:59, Fusion complexes are no longer Present Premature ventricular complexes are no longer Present ST no longer depressed in Anterior leads Confirmed by MD Villareal Danette ([id number]) on 05/10/2023 8:47:46 PM MUSE SYSTEM 05/10/2023 1:16 PM EDT 05/10/2023 8:47 PM EDT Juan Luis Gonzalez MD ECG ORDERABLES MUSE SYSTEM * Lactate, whole blood, send to lab ([facility]) (05/10/2023 11:52 AM EDT) Lactate WB 1.8 0.5 - 2.2 mmol/L [facility] Blood 05/10/2023 11:5 2 AM EDT 05/10/2023 12:13 PM EDT Narrative Resulting Agency Comment Spec In Lab Juan Luis Gonzalez MD CHEMISTRY ORDERABLES [facility] [place] [address] * XR Chest One View (05/10/2023 11:16 [...] questions please contact the health animal care taker that requested your imaging first. ? Electronically signed by: ALIX RUVALCABA MD, [facility] ([phone]), at 05/10/2023 1:25 PM Narrative 05/10/2023 1:25 [...] have questions please contactthe health animal care taker that requested your imaging first. Electronically signed by: ALIX RUVALCABA MD, [facility]([phone]), at 05/10/2023 1:25 PM Juan Luis Gonzalez MD IMG DX ORDERABLES * EKG 12 Lead (05/10/2023 7:59 AM EDT) [facility] Ventricular rate 115 BPM MUSE SYSTEM Atrial Rate 115 BPM MUSE SYSTEM P-R Interval 142 ms MUSE SYSTEM QRS Duration 102 ms MUSE SYSTEM Q-T Interval 322 ms MUSE SYSTEM QTC Calculated (Bezet) 445 ms MUSE SYSTEM Calculated P Theresa 36 degrees MUSE SYSTEM Calculated R Theresa 28 degrees MUSE SYSTEM Calculated T Theresa -119 degrees MUSE SYSTEM INTERPRETATION Sinus tachycardia [...] (ABNORMAL) Differential, Automated (05/10/2023 2:28 AM EDT) [facility] Neutrophil % 77.1 % [facility] Neutrophil Absolute 4.01 1.70 - 6.10 x10(3)/mc L [facility] Lymph % 14.0 % [facility] Lymphocytes Abs 0.7(L) 0.9 - 3.2 x10(3)/mc L [facility] Monocyte % 7.7 % [facility] Monocyte Abs 0.4 0.3 - 0.9 x10(3)/mc L [facility] Eos % 0.4 % [facility] Eosinophils Abs 0.0 0.0 - 0.4 x10(3)/mc L [facility] Basophil % 0.4 % [facility] Baso Absolute 0.0 0.0 - 0.1 x10(3)/mc L [facility] Immature Gran % 0.40 % [facility] Comment: Immature granulocytes(IG's)percentage and absolute count will include metamyelocytes, myelocytes, and promyelocytes. Blood smears from CBCs yielding IG's will be scanned manually for concordance. If this scan disagrees with the automated IG or if promyelocytes are noted, a manual differential will be performed. Immature Gran Absolute 0.02 0.00 - 0.04 x10(3)/[facility] Blood 05/10/2023 2:28 AM EDT 05/10/2023 2:57 AM EDT Narrative Resulting Agency Comment Spec In Lab Klaudia Reid MD HEMATOLOGY OR DERABLES [facility] [place] [address] * (ABNORMAL) Hemogram (05/10/2023 2:28 AM EDT) White Blood Cell 5.2 4.0 - 9.5 x10(3)/[facility] Red Blood Cell 3.11(L) 4.00 - 5.21 x10(6)/[facility] Hemoglobin 10.2(L) 11.7 - 15.5 g/dL [facility] Hematocrit 30.2(L) 35.7 - 45.8 % [facility] Mean Cell Volume 97.1(H) 82.6 - 94.4 fL [facility] Mean Cell Hemoglobin 32.8(H) 27.1 - 32.0 pg [facility] Mean Cell Hemoglobin Concentration 33.8 31.7 - 35.0 g/dL [facility] Platelet 151 145 - 357 x10(3)/[facility] RDW Standard Deviation 44.9 37.0 - 46.0 fL [facility] RDW coefficient of variation 12.8 11.5 - 14.1 % [facility] Mean Platelet Volume 9.8 7.6 - 12.9 fL [facility] NRBC% auto 0.0 % [facility] NRBC Absolute 0.000 0.000 - 0.000 x10(3)/[facility] Blood 05/10/2023 2:28 AM EDT 05/10/2023 2:57 AM EDT Narrative Resulting Agency Comment Spec In Lab Klaudia Redi MD HEMATOLOGY OR DERABLES [facility] [place] [address] * (ABNORMAL) Comprehensive metabolic panel (non-fasting) (05/10/2023 2:28 AM EDT) Glucose 100 65 - 199 mg/dL [facility] Comment:Diabetes: >=200 mg/d L plus symptoms Blood Urea Nitrogen 30(H) 8 - 18 mg/dL [facility] Creatinine 0.90 0.70 - 1.20 mg/dL [facility] Sodium 134(L) 135 - 145 mmol/L [facility] Potassium 4.1 3.5 - 5.0 mmol/L [facility] Comment: Please note: ??Patients with WBC >100,000 may have falsely elevated Potassium levels. ??For accurate Potassium quantification in these patients send serum separator tube (gold top) for subsequent determinations. ??Contact the Clinical Chemistry Laboratory if there are any questions. Chloride 102 98 - 107 mmol/L [facility] Carbon Dioxide 20(L) 22 - 31 mmol/L [facility] Anion Gap 12 5 - 15 mmol/L [facility] Calcium 9.3 8.5 - 10.5 mg/dL [facility] Protein, Total 6.4 6.1 - 8.0 g/dL [facility] Albumin 3.7 3.2 - 5.2 g/dL [facility] Aspartate Aminotransferase 24 0 - 30 unit/L [facility] Alanine Aminotransferase 14 0 - 30 unit/L [facility] Alkaline Phosphatase 70 35 - 105 unit/L [facility] Bilirubin, Total 0.5 0.2 - 1.3 mg/dL [facility] Est Glomerular Filtration Rate 70 >=60 mL/min/1. 73 m?? [facility] Comment: This patient's estimated GFR [...] ES Performing Organization Address [facility] [place] [address] * Heparin (unfractionated) Level (05/10/2023 2:28 AM EDT) UF Heparin 0.37 IU/mL [facility] Comment: Heparin [...] LES Performing Organization Address [facility]/ZIP Co de Phone Number [facility] [place] [address] * (ABNORMAL) Differential, Automated (05/09/2023 4:00 AM EDT) Neutrophil % 81.7 % [facility] Neutrophil Absolute 5.26 1.70 - 6.10 x10(3)/mc L [facility] Lymph % 10.7 % [facility] Lymphocytes Abs 0.7(L) 0.9 - 3.2 x10(3)/[facility] Monocyte % 6.5 % [facility] Monocyte Abs 0.4 0.3 - 0.9 x10(3)/[facility] Eos % 0.5 % [facility] Eosinophils Abs 0.0 0.0 - 0.4 x10(3)/[facility] Basophil % 0.3 % [facility] Baso Absolute 0.0 0.0 - 0.1 x10(3)/[facility] Immature Gran % 0.30 % [facility] Comment: Immature granulocytes(IG's)percentage and absolute count will include metamyelocytes, myelocytes, and promyelocytes. Blood smears from CBCs yielding IG's will be scanned manually for concordance. If this scan disagrees with the automated IG or if promyelocytes are noted, a manual differential will be performed. Immature Gran Absolute 0.02 0.00 - 0.04 x10(3)/ L [facility] Blood 05/09/2023 4:00 AM EDT 05/09/2023 4:19 AM EDT Narrative Resulting Agency Comment Spec In Lab Klaudia Reid MD HEMATOLOGY OR DERABLES [facility] [place] [address] * (ABNORMAL) Hemogram (05/09/2023 4:00 AM EDT) White Blood Cell 6.4 4.0 - 9.5 x10(3)/[facility] Red Blood Cell 3.15(L) 4.00 - 5.21 x10(6)/[facility] Hemoglobin 10.2(L) 11.7 - 15.5 g/dL [facility] Hematocrit 30.3(L) 35.7 - 45.8 % [facility] Mean Cell Volume 96.2(H) 82.6 - 94.4 fL [facility] Mean Cell Hemoglobin 32.4(H) 27.1 - 32.0 pg [facility] Mean Cell Hemoglobin Concentration 33.7 31.7 - 35.0 g/dL [facility] Platelet 151 145 - 357 x10(3)/mc L [facility] RDW Standard Deviation 44.7 37.0 - 46.0 fL [facility] RDW coefficient of variation 12.8 11.5 - 14.1 % [facility] Mean Platelet Volume 9.4 7.6 - 12.9 fL [facility] NRBC% auto 0.0 % [facility] NRBC Absolute 0.000 0.000 - 0.000 x10(3)/mc L [facility] Blood 05/09/2023 4:00 AM EDT 05/09/2023 4:19 AM EDT Narrative Resulting Agency Comment Spec In Lab Klaudia Reid MD HEMATOLOGY OR DERABLES Performing Organization Address City/State/[facility] Co de Phone Number [facility] [place] [place] [address] * Heparin (unfractionated) Level (05/09/2023 4:00 AM EDT) UF Heparin 0.47 IU/mL [facility] Comment: Heparin (anti-Xa) levels should [...] Lab Radha Hollins MD HEMATOLOGY ORDERAB LES [facility] [place] [address] * (ABNORMAL) Comprehensive metabolic panel (non-fasting) (05/09/2023 4:00 AM EDT) Glucose 108 65 - 199 mg/dL [facility] Comment:Diabetes: >=200 mg/d L plus symptoms Blood Urea Nitrogen 31(H) 8 - 18 mg/dL [facility] Creatinine 1.03 0.70 - 1.20 mg/dL [facility] Sodium 137 135 - 145 mmol/L [facility] Potassium 4.4 3.5 - 5.0 mmol/L [facility] Comment: Please note: ??Patients with WBC >100,000 may have falsely elevated Potassium levels. ??For accurate Potassium quantification in these patients send serum separator tube (gold top) for subsequent determinations. ??Contact the Clinical Chemistry Laboratory if there are any questions. Chloride 102 98 - 107 mmol/L [facility] Carbon Dioxide 20(L) 22 - 31 mmol/L [facility] Anion Gap 15 5 - 15 mmol/L [facility] Calcium 9.3 8.5 - 10.5 mg/dL [facility] Protein, Total 6.6 6.1 - 8.0 g/dL [facility] Albumin 3.8 3.2 - 5.2 g/dL [facility] Aspartate Aminotransferase 32(H) 0 - 30 unit/L [facility] Alanine Aminotransferase 18 0 - 30 unit/L [facility] Alkaline Phosphatase 78 35 - 105 unit/L [facility] Bilirubin, Total 0.5 0.2 - 1.3 mg/dL [facility] Est Glomerular Filtration Rate 60 >=60 mL/min/1. 73 m?? [facility] Comment: This patient's estimated GFR [...] ES Performing Organization Address [facility] Co de Phone Number [facility] [place] [address] * (ABNORMAL) pro-Brain Natriuretic Peptide (05/08/2023 4:00 PM EDT) NT-proBNP 25,503(H) <=124 pg/mL [facility] Blood Venous Draw / Unknown 05/08/2023 4:00 PM EDT 05/08/2023 4:25 PM EDT Narrative Resulting Agency Comment Spec In Lab Juan Luis Gonzalez MD CHEMISTRY ORDERABLES Performing Organization Address [facility] Co de Phone Number [facility] [place] [address] * Magnesium (05/08/2023 4:00 PM EDT) Magnesium 0.82 0.69 - 1.07 mmol/L [facility] Blood 05/08/2023 4:00 PM EDT 05/08/2023 4:06 PM EDT Narrative Resulting Agency Comment Spec In Lab Enrique Chua MD CHEMISTRY ORDERABLES Performing Organization Address [facility] Co de Phone Number [facility] [place] [address] * Potassium (05/08/2023 4:00 PM EDT) Potassium 3.9 3.5 - 5.0 mmol/L [facility] Comment: Please note: ??Patients with [...] ES Performing Organization Address [facility] Co de Phone Number [facility] [place] [address] * Heparin (unfractionated) Level (05/08/2023 4:00 PM EDT) Pathologist [facility] UF Heparin 0.43 IU/mL [facility] Comment: Heparin [...] LES Performing Organization Address [facility] Co de Phone Number [facility] [place] [address] * EKG 12 Lead (05/08/2023 3:51 PM EDT) Ventricular rate 98 BPM MUSE SYSTEM Atrial Rate 98 BPM MUSE SYSTEM P-R Interval 150 ms MUSE SYSTEM QRS Duration 102 ms MUSE SYSTEM Q-T Interval 358 ms MUSE SYSTEM QTC Calculated (Bezet) 457 ms MUSE SYSTEM Calculated P Theresa 38 degrees MUSE SYSTEM Calculated R Theresa 48 degrees MUSE SYSTEM Calculated T Theresa -112 degrees MUSE SYSTEM INTERPRETATION Sinus rhythm with frequent and consecutive Premature ventricular and fusion complexes Septal infarct , age undetermined ST & T wave abnormality, consider anterolateral ischemia Abnormal ECG When compared with ECG of 09-NOV-2022 11:17, T wave inversion now evident in Anterolateral leads Confirmed by MD Harshil, Enrique Bell ([id number]) on 05/10/2023 8:11:46 AM MUSE SYSTEM 05/08/2023 3:51 PM EDT 05/10/2023 8:11 AM EDT Radha Hollins MD ECG ORDERABLES MUSE SYSTEM * (ABNORMAL) Differential, Automated (05/08/2023 11:38 AM EDT) Neutrophil % 71.3 % [facility] Neutrophil Absolute 2.91 1.70 - 6.10 x10(3)/mc L [facility] Lymph % 19.1 % [facility] Lymphocytes Abs 0.8(L) 0.9 - 3.2 x10(3)/mc L [facility] Monocyte % 9.0 % [facility] Monocyte Abs 0.4 0.3 - 0.9 x10(3)/mc L [facility] Eos % 0.2 % [facility] Eosinophils Abs 0.0 0.0 - 0.4 x10(3)/mc L [facility] Basophil % 0.2 % [facility] Baso Absolute 0.0 0.0 - 0.1 x10(3)/mc L [facility] Immature Gran % 0.20 % [facility] Comment: Immature granulocytes(IG's)percentage and absolute count will include metamyelocytes, myelocytes, and promyelocytes. Blood smears from CBCs yielding IG's will be scanned manually for concordance. If this scan disagrees with the automated IG or if promyelocytes are noted, a manual differential will be performed. Immature Gran Absolute 0.01 0.00 - 0.04 x10(3)/mc L [facility] Blood 05/08/2023 11:3 8 AM EDT 05/08/2023 11:44 AM EDT Narrative Resulting Agency Comment Spec In Lab Lincoln Sal MD HEMATOLOGY ORDERA BLES [facility] [place] [address] * (ABNORMAL) Hemogram (05/08/2023 11:38 AM EDT) White Blood Cell 4.1 4.0 - 9.5 x10(3)/mc L [facility] Red Blood Cell 3.05(L) 4.00 - 5.21 x10(6)/mc L [facility] Hemoglobin 10.2(L) 11.7 - 15.5 g/dL [facility] Hematocrit 29.6(L) 35.7 - 45.8 % [facility] Mean Cell Volume 97.0(H) 82.6 - 94.4 fL [facility] Mean Cell Hemoglobin 33.4(H) 27.1 - 32.0 pg [facility] Mean Cell Hemoglobin Concentration 34.5 31.7 - 35.0 g/dL [facility] Platelet 136(L) 145 - 357 x10(3)/mc L [facility] RDW Standard Deviation 44.3 37.0 - 46.0 fL [facility] RDW coefficient of variation 12.6 11.5 - 14.1 % [facility] Mean Platelet Volume 9.4 7.6 - 12.9 fL [facility] NRBC% auto 0.0 % [facility] NRBC Absolute 0.000 0.000 - 0.000 x10(3)/mc L [facility] Blood 05/08/2023 11:3 8 AM EDT 05/08/2023 11:44 AM EDT Narrative Resulting Agency Comment Spec In Lab Lincoln Sal MD HEMATOLOGY ORDERA BLES [facility] [place] [address] * TSH (05/08/2023 11:38 AM EDT) Thyroid Stimulating Hormone 1.27 0.27 - 4.20 mcIU/mL [facility] Comment: Reference Interval (mcIU/mL): Females: ??First Trimester: 0.23-3.88 ??Second Trimester: 0.22-3.90 ??Third Trimester: 0.44-4.66 Blood 05/08/2023 11:3 8 AM EDT 05/08/2023 11:44 AM EDT Narrative Resulting Agency Comment Spec In Lab Enrique Chua MD CHEMISTRY ORDERABLES Performing Organization Address City/[facility] Co de Phone Number [facility] [place] [address] * (ABNORMAL) Phosphorus (05/08/2023 11:38 AM EDT) Phosphorus 4.7(H) 2.5 - 4.5 mg/dL [facility] Blood 05/08/2023 11:3 8 AM EDT 05/08/2023 11:44 AM EDT Narrative Resulting Agency Comment Spec In Lab Enrique Chua MD CHEMISTRY ORDERABLES Performing Organization Address [facility] Co de Phone Number [facility] [place] [address] * Magnesium (05/08/2023 11:38 AM EDT) Magnesium 0.76 0.69 - 1.07 mmol/L [facility] Blood 05/08/2023 11:3 8 AM EDT 05/08/2023 11:44 AM EDT Narrative Resulting Agency Comment Spec In Lab Enrique Chua MD CHEMISTRY ORDERABLES Performing Organization Address [facility] Co de Phone Number [facility] [address] * (ABNORMAL) Basic Metabolic Panel (non-fasting) (05/08/2023 11:38 AM EDT) Glucose 97 65 - 199 mg/dL [facility] Comment:Diabetes: >=200 mg/d L plus symptoms Blood Urea Nitrogen 27(H) 8 - 18 mg/dL [facility] Creatinine 1.02 0.70 - 1.20 mg/dL [facility] Sodium 139 135 - 145 mmol/L [facility] Potassium 4.2 3.5 - 5.0 mmol/L [facility] Comment: Please note: ??Patients with WBC >100,000 may have falsely elevated Potassium levels. ??For accurate Potassium quantification in these patients send serum separator tube (gold top) for subsequent determinations. ??Contact the Clinical Chemistry Laboratory if there are any questions. Chloride 105 98 - 107 mmol/L [facility] Carbon Dioxide 20(L) 22 - 31 mmol/L [facility] Anion Gap 14 5 - 15 mmol/L [facility] Calcium 9.4 8.5 - 10.5 mg/dL [facility] Est Glomerular Filtration Rate 60 >=60 mL/min/1. 73 m?? [facility] Comment: This patient's estimated GFR [...] City/State/[facility] Co de Phone Number [facility] [address] * ECHO COMPLETE (05/08/2023 11:02 AM EDT) EF 25 [employer] Anatomical Region Laterality Modality Cardiac Other 05/08/2023 10:0 3 AM EDT Narrative 05/08/2023 11:51 AM EDT ? Echocardiogram Report Name: PURNIMA THACKER ?Study Date: 05/08/2023 10:03 AMBP: 92/64 mmHg ? Patient Location: [facility]^CV29^A : 1955 ? Height: 155 cm ? Account: [id number] Age: 67 yrs ? Weight: 78 kg Gender: Female ?BSA: 1.8 m2 Ordering Physician: ENRIQUE CHUA Referring Physician: MARIO ALBERTO CHIN Performed By: CHUCKIE Canchola Reason For Study: SAVR Stenosis Exam Location: [facility]. Interpretation Summary -Left ventricle is [...] worsening stenosis. Mitral regurgitation is similar. Procedure Complete-[id number]. Satisfactory quality. There is normal sinus rhythm. [...] Study Date: 310:03 AMBP: 92/64 mmHg Patient Location:[facility]^CV29^A : 1955 Height: 155 cm Account: [id number] Age: 67 yrs Weight: 78 kg Gender: Female BSA: 1.8 m2 Ordering Physician: ENRIQUE CHUA Referring Physician: MARIO ALBERTO CHIN Performed By: CHUCKIE Canchola Reason For Study: SAVR Stenosis Exam Location: [facility]. Interpretation Summary -Left ventricle is [...] suggestsworsening stenosis. Mitral regurgitation is similar. Procedure Complete-[id number]. Satisfactory quality. There is normal sinus rhythm. [...] 9:45 AM EDT) UF Heparin 0.54 IU/mL [facility] Comment: Heparin [...] City/State/[facility] Co de Phone Number [facility] [place] [address] documented in this encounter Visit Diagnoses Diagnosis [...] 40 mEq, Oral, ONCE, 1 dose, On [facility] 05/20/23 at 0915, potassium chloride ER particle/crystal [...] post-op day 1 in the AM Give MA if unable to take PO, Routine Group [...] Routine documented in this encounter Care Teams Endbander Relationship Specialty Start Date End Date Magdalena Acosta MD [address] [place] [address] PCP - General Family Medicine 02/05/23 documented as of this encounter
--- OUTSIDE RECORDS SUMMARY | 2024-04-06 13:57 | XMS_ITS | Encounter Summary ---
Author Organization [facility] Address [facility] [place] [address] Care Team Providers Care Violin Tutor Name Role Phone Magdalena Acosta MD Primary Care Provider [phone] Reason for Visit * Consultation (Routine) - Closed Specialty Diagnoses / Procedures Referred By Contac t Referred To Contact Rheumatology Diagnoses Weakness Kyra Haas MD [facility] [address] [place] [address] [facility] [address] [place] [phone] Referral ID Status Reason Start Date Expiration Date V isits Requested Visits Authorized [id number] Closed Consult, Test & Treat PCP Updated and/or Approved 02/25/2023 02/25/2024 6 6 Encounter Details Date Type Department Care Team (Late st Contact Info) Description 03/18/2023 1:00 PM EDT Office [place] [address] Kia Viramontes DO [facility] [place] [address] Magdalena Peralta MD [facility] [place] [address] Positive FRANCISCO (antinuclear antibody) Social [...] 1:5120 speckled VIC negative Myositis panel with AGRISCIENCE INSTRUCTOR ab 149.1 (positive) Anti U1RNP IgG 119 [...] a chair without assistance of upper extremities. Mower Operator strength 3+/5 bilaterally; otherwise large muscle [...] due to risk of retinal toxicity with exterminator helper Plaquenil use, which she already does. Recommendations: #mixed connective tissue disease Start hydroxychloroquine 200 mg qd Labs today: repeat FRANCISCO, dsDNA, complements, CBC, CMP, CK, ESR, CRP Follow up 1 month The patient was seen and discussed with Dr. Wander Peralta MD Rheumatology Fellow Pager: [phone] CC: Kyra Haas * Kia Viramontes DO [...] at [place] [address] [place] [address] Marek Bonilla MD [address] [place] [place] [address] documented as of this encounter Results * Comprehensive metabolic panel (non-fasting) (03/18/2023 2:14 PM EDT) Glucose 93 65 - 199 mg/dL [facility] Comment:Diabetes: >=200 mg/d L plus symptoms Blood Urea Nitrogen 18 8 - 18 mg/dL [facility] Creatinine 0.99 0.70 - 1.20 mg/dL [facility] Sodium 141 135 - 145 mmol/L [facility] Potassium 4.5 3.5 - 5.0 mmol/L [facility] Comment: Please note: ??Patients with WBC >100,000 may have falsely elevated Potassium levels. ??For accurate Potassium quantification in these patients send serum separator tube (gold top) for subsequent determinations. ??Contact the Clinical Chemistry Laboratory if there are any questions. Chloride 106 98 - 107 mmol/L [facility] Carbon Dioxide 24 22 - 31 mmol/L [facility] Anion Gap 11 5 - 15 mmol/L [facility] Calcium 10.0 8.5 - 10.5 mg/dL [facility] Protein, Total 7.3 6.1 - 8.0 g/dL [facility] Albumin 4.3 3.2 - 5.2 g/dL [facility] Aspartate Aminotransferase 26 0 - 30 unit/L [facility] Alanine Aminotransferase 11 0 - 30 unit/L [facility] Alkaline Phosphatase 91 35 - 105 unit/L [facility] Bilirubin, Total 0.4 0.2 - 1.3 mg/dL [facility] Est Glomerular Filtration Rate 62 >=60 mL/min/1. 73 m?? [facility] Comment: This patient's estimated GFR [...] DO CHEMISTRY ORDERABL ES Performing Organization Address City/State/[facility] Co de Phone Number [facility] [place] [address] * (ABNORMAL) FRANCISCO Ab by IFA (03/18/2023 2:14 PM EDT) FRANCISCO Ab Screen Test ? Result ?Flag ??Unit ??RefValue Antinuclear Ab, HEp-2 ?Positive 1:2560 ??@ ?<1:80 (Negative) ??Substrate, S ? ADDITIONAL INFORMATION --------- ?Method: Immunofluorescence using HEp-2 cellular substrate. ??FRANCISCO Titer: ? 1:2560 ??FRANCISCO Pattern: ? Speckled ?Test Performed by: ?[facility] ?[address] [place] [address] ?Outside Medical Sales Representative: Raymond Chaudhry M.D. Ph.D.; CLIA# [id number] ([id number]) [facility] Blood 03/18/2023 2:14 PM EDT 03/18/2023 3:02 PM EDT Narrative Resulting Agency Comment Spec In Lab Kia Viramontes DO CHEMISTRY ORDERABL ES Performing Organization Address [facility] de Phone Number [facility] [place] [address] * DNA Antibody (Double-Stranded) (03/18/2023 2:14 PM EDT) [facility] dsDNA Ab <0.6 <=15.0 IU/mL [facility] Comment: <10 negative 10-15 equivocal >15 positive This dsDNA antibody result was generated using a fluoroenzyme immunoassay on the [place] [facility] 250 analyzer. This quantitative test is designed to detect IgG antibodies directed against double stranded DNA in human serum. The presence of antibodies that recognize dsDNA is a highly specific marker for systemic lupus erythematosus. Please note that as of 05/26/2022 that this testing is performed by the Special Chemistry Laboratory at [facility]. This change in testing location is associated with a change is testing method and reference intervals. Please review the results of this test in association with the posted reference intervals. Blood 03/18/2023 2:14 PM EDT 03/19/2023 7:19 AM EDT Narrative Resulting Agency Comment Spec In Lab Kia Viramontes DO LAB SEND OUT ORDER JODIE Performing Organization Address [facility]/ZIP Co de Phone Number [facility] [place] [address] * CK (03/18/2023 2:14 PM EDT) Creatine Kinase 38 0 - 160 unit/L [facility] Blood 03/18/2023 2:14 PM EDT 03/18/2023 2:24 PM EDT Narrative Resulting Agency Comment Spec In Lab Kia D Wander DO CHEMISTRY ORDERABL ES Performing Organization Address [facility] Co de Phone Number [facility] [place] [address] * C4 Complement (03/18/2023 2:14 PM EDT) Complement C4 30 10 - 40 mg/dL [facility] Blood 03/18/2023 2:14 PM EDT 03/18/2023 2:24 PM EDT Narrative Resulting Agency Comment Spec In Lab Kia D Wander DO CHEMISTRY ORDERABL ES Performing Organization Address [facility] Co de Phone Number [facility] [place] [address] * C3 Complement (03/18/2023 2:14 PM EDT) Complement C3 142 90 - 180 mg/dL [facility] Blood 03/18/2023 2:14 PM EDT 03/18/2023 2:24 PM EDT Narrative Resulting Agency Comment Spec In Lab Kia D Wander DO CHEMISTRY ORDERABL ES Performing Organization Address [facility] Co de Phone Number [facility] [place] [address] * CRP, acute inflammation (03/18/2023 2:14 PM EDT) C-Reactive Protein 3.0 <=4.9 mg/L [facility] Blood 03/18/2023 2:14 PM EDT 03/18/2023 2:24 PM EDT Narrative Resulting Agency Comment Spec In Lab Kia Viramontes DO CHEMISTRY ORDERABL ES Performing Organization Address City/[facility]/ZIP Co de Phone Number [facility] [place] [address] * (ABNORMAL) Sedimentation rate (03/18/2023 2:14 PM EDT) Sedimentation Rate Automated 68(H) 2 - 39 mm/hr [facility] Comment: Effective July 12, 2019 new capillary photometric technology has resulted in a change in reference ranges. It is recommended that each ESR result be reviewed with its own age appropriate reference range. Blood 03/18/2023 2:14 PM EDT 03/18/2023 2:24 PM EDT Narrative Resulting Agency Comment Spec In Lab Kia Viramontes DO HEMATOLOGY ORDERAB LES Performing Organization Address City/[facility] Co de Phone Number [facility] [place] [address] documented in this encounter Visit Diagnoses Diagnosis Positive FRANCISCO (antinuclear antibody) Other and unspecified nonspecific immunological findings documented in this encounter Care Teams Violin Tutor Relationship Specialty Start Date End Date Magdalena Acosta MD [address] [place] [address] PCP - General Family Medicine 02/05/23 documented as of this encounter
--- OUTSIDE RECORDS SUMMARY | 2024-04-06 13:57 | XMS_ITS | Encounter Summary ---
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 documented in this encounter Plan of Treatment Upcoming Encounters Date Type Department Care Team (Late st Contact Info) Description 03/01/2025 4:15 PM EDT Office Visit Dermatology at [place] [address] [place] [address] Marek Bonilla MD [address] [place] [address] documented as of this encounter Visit Diagnoses Not on filedocumented in this encounter Care Teams Fibrous Wallboard Inspector Relationship Specialty Start Date End Date Magdalena Acosta MD [address] [place] [address] PCP - General Family Medicine 02/05/23 documented as of this encounter
--- OUTSIDE RECORDS SUMMARY | 2024-04-06 13:57 | XMS_ITS | Encounter Summary ---
Author Organization [facility] [place] [address] Care Team Providers Care Pump Tender Name Role Phone Magdalena Acosta MD Primary Care Provider [phone] Encounter Details Date Type Department Care Team (Latest Contact Info) Description 02/05/2023 9:33 PM EDT - 02/05/2023 11:59 PM EDT [place] [phone] Discharge Disposition: Home Social History Tobacco Use [...] PM EDT Office Visit Dermatology at [place] [address] [place] [address] Marek Bonilla MD [address] [facility], [place] [address] documented as of this encounter Procedures Procedure Name Priority Date/Time Associated Diagnosis Comments SURGICAL PATHOLOGY REPORT Routine 02/05/2023 3:00 PM EDT documented in this encounter Results * Surgical Pathology Report (02/05/2023 3:00 PM EDT) Final Diagnosis [id number] ? Location: OPW The signing pathologist has (i) examined the relevant preparation(s) for the specimen(s) and (ii) rendered or confirmed the diagnosis(es). . ?Surgical Pathology DIAGNOSIS Left upper back, skin punch biopsy: - ??Compound dysplastic ??melanocytic nevus with moderate atypia, transected at peripheral specimen edges ?? (see discussion) Electronically signed by: ?Vanna CULP, Jesse Shields Verified: ??02/16/2023 8:04 ?? Dermatopathologist Performed at: ??-[facility] [place]ology, [place] [address] Law Firm Administrator: Kunal Rubi MD, FCAP, ??CLIA Certificate: [id number] DISCUSSION If there is an obvious clinical [...] labeled A1. ??sns 02/16/2023 8:[address] [facility] SPECIMEN FROM SKIN / Unknown 02/05/2023 3:00 PM EDT 02/05/2023 3:00 PM EDT Marek Bonilla MD PATHOLOGY/CYTOLOGY O RDERABLES [facility] [place] [address] [facility] [place] [address] documented in this encounter Visit Diagnoses Not on filedocumented in this encounter Care Teams Pump Tender Relationship Specialty Start Date End Date Magdalena Acosta MD [address] [place] [address] PCP - General Family Medicine 02/05/23 documented as of this encounter
--- OUTSIDE RECORDS SUMMARY | 2024-04-06 13:57 | XMS_ITS | Encounter Summary ---
[place] [address] Care Team Providers Care Senior Accountant Cpa Name Role Phone Magdalena Acosta MD Primary Care Provider [phone] Encounter Details Date Type Department Care Team (Latest Contact Info) Description 03/18/2023 2:30 PM EDT Laboratory Appointment Lab [address] [phone] Positive FRANCISCO (antinuclear antibody) Social History Tobacco [...] 4:15 PM EDT Office Visit Dermatology at [place] [address] [place] [phone] Marek Bonilla MD [address], [place] [address] documented as of this encounter Procedures Procedure [...] 2:14 PM EDT) Neutrophil % 71.2 % [facility] Neutrophil Absolute 2.26 1.70 - 6.10 x10(3)/mc L [facility] Lymph % 18.2 % [facility] Lymphocytes Abs 0.6(L) 0.9 - 3.2 x10(3)/mc L [facility] Monocyte % 9.7 % [facility] Monocyte Abs 0.3 0.3 - 0.9 x10(3)/mc L [facility] Eos % 0.3 % [facility] Eosinophils Abs 0.0 0.0 - 0.4 x10(3)/mc L [facility] Basophil % 0.6 % [facility] Baso Absolute 0.0 0.0 - 0.1 x10(3)/[facility] Immature Gran % 0.00 % [facility] Comment: Immature granulocytes(IG's)percentage and absolute count will include metamyelocytes, myelocytes, and promyelocytes. Blood smears from CBCs yielding IG's will be scanned manually for concordance. If this scan disagrees with the automated IG or if promyelocytes are noted, a manual differential will be performed. Immature Gran Absolute 0.00 0.00 - 0.04 x10(3)/[facility] Blood 03/18/2023 2:14 PM EDT 03/18/2023 2:24 PM EDT Narrative Resulting Agency Comment Spec In Lab Magdalena Peralta MD HEMATOLOGY ORDERABLE S Performing Organization Address City/State/[facility] Co de Phone Number [facility] [place] [address] * (ABNORMAL) Hemogram (03/18/2023 2:14 PM EDT) White Blood Cell 3.2(L) 4.0 - 9.5 x10(3)/[facility] Red Blood Cell 3.44(L) 4.00 - 5.21 x10(6)/[facility] Hemoglobin 11.1(L) 11.7 - 15.5 g/dL [facility] Hematocrit 32.9(L) 35.7 - 45.8 % [facility] Mean Cell Volume 95.6(H) 82.6 - 94.4 fL [facility] Mean Cell Hemoglobin 32.3(H) 27.1 - 32.0 pg [facility] Mean Cell Hemoglobin Concentration 33.7 31.7 - 35.0 g/dL [facility] Platelet 144(L) 145 - 357 x10(3)/[facility] RDW Standard Deviation 42.6 37.0 - 46.0 fL [facility] RDW coefficient of variation 12.3 11.5 - 14.1 % [facility] Mean Platelet Volume 9.4 7.6 - 12.9 fL [facility] NRBC% auto 0.0 % [facility] NRBC Absolute 0.000 0.000 - 0.000 x10(3)/mc L [facility] Blood 03/18/2023 2:14 PM EDT 03/18/2023 2:24 PM EDT Narrative Resulting Agency Comment Spec In Lab Magdalena Peralta MD HEMATOLOGY ORDERABLE S Performing Organization Address [facility] Co de Phone Number [facility] [place] [address] * (ABNORMAL) Sedimentation rate (03/18/2023 2:14 PM EDT) Sedimentation Rate Automated 68(H) 2 - 39 mm/hr [facility] Comment: Effective July 12, 2019 new [...] Address [facility] Co de Phone Number [facility] [place] [address] * CRP, acute inflammation (03/18/2023 2:14 PM EDT) C-Reactive Protein 3.0 <=4.9 mg/L [facility] Blood 03/18/2023 2:14 PM EDT 03/18/2023 2:24 PM EDT Narrative Resulting Agency Comment Spec In Lab Kia Viramontes DO CHEMISTRY ORDERABL ES Performing Organization Address [facility] Co de Phone Number [facility] [place] [address] * C3 Complement (03/18/2023 2:14 PM EDT) Complement C3 142 90 - 180 mg/dL [facility] Blood 03/18/2023 2:14 PM EDT 03/18/2023 2:24 PM EDT Narrative Resulting Agency Comment Spec In Lab Kia Viramontes DO CHEMISTRY ORDERABL ES Performing Organization Address [facility] de Phone Number [facility] [place] [address] * C4 Complement (03/18/2023 2:14 PM EDT) Complement C4 30 10 - 40 mg/dL [facility] Blood 03/18/2023 2:14 PM EDT 03/18/2023 2:24 PM EDT Narrative Resulting Agency Comment Spec In Lab Kia Viramontes DO CHEMISTRY ORDERABL ES Performing Organization Address [facility] de Phone Number [facility] [place] [address] * CK (03/18/2023 2:14 PM EDT) Creatine Kinase 38 0 - 160 unit/L [facility] Blood 03/18/2023 2:14 PM EDT 03/18/2023 2:24 PM EDT Narrative Resulting Agency Comment Spec In Lab Kia Viramontes DO CHEMISTRY ORDERABL ES Performing Organization Address [facility] de Phone Number [facility] [place] [address] * DNA Antibody (Double-Stranded) (03/18/2023 2:14 PM EDT) dsDNA Ab <0.6 <=15.0 IU/mL [facility] Comment: <10 negative 10-15 equivocal >15 positive This dsDNA antibody result was generated using a fluoroenzyme immunoassay on the MakuCell 250 analyzer. This quantitative test is designed to detect IgG antibodies directed against double stranded DNA in human serum. The presence of antibodies that recognize dsDNA is a highly specific marker for systemic lupus erythematosus. Please note that as of 05/26/2022 that this testing is performed by the Special Chemistry Laboratory at [facility]. This change in testing location is associated with a change is testing method and reference intervals. Please review the results of this test in association with the posted reference intervals. Blood 03/18/2023 2:14 PM EDT 03/19/2023 7:19 AM EDT Narrative Resulting Agency Comment Spec In Lab Kia Viramontes DO LAB SEND OUT ORDER JODIE [facility] [place] [address] * (ABNORMAL) FRANCISCO Ab by IFA (03/18/2023 2:14 PM EDT) FRANCISCO Ab Screen Test ? Result ?Flag ??Unit ??RefValue Antinuclear Ab, HEp-2 ?Positive 1:2560 ??@ ?<1:80 (Negative) ??Substrate, S ? ADDITIONAL INFORMATION --------- ?Method: Immunofluorescence using HEp-2 cellular substrate. ??FRANCISCO Titer: ? 1:2560 ??FRANCISCO Pattern: ? Speckled ?Test Performed by: ?[facility] ?[address] [place] [address] ?Marking Machine Tender: Raymond Chaudhry M.D. Ph.D.; CLIA# [id number] ([id number]) [facility] Blood 03/18/2023 2:14 PM EDT 03/18/2023 3:02 PM EDT Narrative Resulting Agency Comment Spec In Lab Kia James Wander DO CHEMISTRY ORDERABL ES [facility] [place] [address] * Comprehensive metabolic panel (non-fasting) (03/18/2023 2:14 PM EDT) Glucose 93 65 - 199 mg/dL [facility] Comment:Diabetes: >=200 mg/d L plus symptoms Blood Urea Nitrogen 18 8 - 18 mg/dL [facility] Creatinine 0.99 0.70 - 1.20 mg/dL [facility] Sodium 141 135 - 145 mmol/L [facility] Potassium 4.5 3.5 - 5.0 mmol/L [facility] Comment: Please note: ??Patients with WBC >100,000 may have falsely elevated Potassium levels. ??For accurate Potassium quantification in these patients send serum separator tube (gold top) for subsequent determinations. ??Contact the Clinical Chemistry Laboratory if there are any questions. Chloride 106 98 - 107 mmol/L [facility] Carbon Dioxide 24 22 - 31 mmol/L [facility] Anion Gap 11 5 - 15 mmol/L [facility] Calcium 10.0 8.5 - 10.5 mg/dL [facility] Protein, Total 7.3 6.1 - 8.0 g/dL [facility] Albumin 4.3 3.2 - 5.2 g/dL [facility] Aspartate Aminotransferase 26 0 - 30 unit/L [facility] Alanine Aminotransferase 11 0 - 30 unit/L [facility] Alkaline Phosphatase 91 35 - 105 unit/L [facility] Bilirubin, Total 0.4 0.2 - 1.3 mg/dL [facility] Est Glomerular Filtration Rate 62 >=60 mL/min/1. 73 m?? [facility] Comment: This patient's estimated GFR was [...] DO CHEMISTRY ORDERABL ES Performing Organization Address City/State/[facility] Co [place] [address] documented in this encounter Visit Diagnoses Diagnosis Positive FRANCISCO (antinuclear antibody) Other and unspecified nonspecific immunological findings documented in this encounter Care Teams Senior Accountant Cpa Relationship Specialty Start Date End Date Magdalena Acosta MD [address] [place] [address] PCP - General Family Medicine 02/05/23 documented as of this encounter
--- OUTSIDE RECORDS SUMMARY | 2024-04-06 13:57 | XMS_ITS | Encounter Summary ---
Author Organization [facility] [place] [address] Care Team Providers Care Honing Job Setter Name Role Phone Magdalena Acosta MD Primary Care Provider [phone] Encounter Details Date Type Department Care Team (Late st Contact Info) Description 02/17/2023 2:00 PM EDT Office [place] [phone] Alirio Esparza MD Aortic valve stenosis, etiology [...] EDT Office Visit Dermatology at [place] [address] [place] [address] Marek Bonilla MD [address] [place] [address] documented as of this encounter Visit Diagnoses Diagnosis Aortic valve stenosis, etiology of cardiac valve disease unspecified documented in this encounter Care Teams Honing Job Setter Relationship Specialty Start Date End Date Magdalena Acosta MD [address] [place] [address] PCP - General Family Medicine 02/05/23 documented as of this encounter
--- OUTSIDE RECORDS SUMMARY | 2024-04-06 13:58 | XMS_ITS | Encounter Summary ---
Author Organization [facility] Address [facility] [place] [address] Care Team Providers Care Neurology Teacher Name Role Phone Deborah Quiroga APRN Primary Care Provider [phone] Encounter Details Date Type Department Care Team (Late st Contact Info) Description 03/01/2020 11:30 AM EDT Office Visit Hematology [place] [phone] Patrick Borjas MD [facility] [address] HEMATOLOGY [place] [address] Neutropenia, unspecified type Social History Tobacco Use [...] TOUCH PREP, CLOT SECTION, CORE ??BIOPSY); [OSR# [id number], COLLECTED 06/23/2016, 19 SLIDES]: ?1. 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 Extremities: No edema. Labs: Hgb= 12.4 Ybpi=049 ANC= 2.5 Imaging As above - reviewed [...] PM EDT Office Visit Dermatology at [address] [address] Marek Bonilla MD [address] [facility], [place] [address] documented as of this encounter Visit Diagnoses Diagnosis Neutropenia, unspecified type documented in this encounter Care Teams Neurology Teacher Relationship Specialty Start Date End Date Deborah Quiroga APRN PCP - General Family Medicine 03/24/16 02/04/23 documented as of this encounter
--- OUTSIDE RECORDS SUMMARY | 2024-04-06 13:58 | XMS_ITS | Encounter Summary ---
Author Organization [facility] [place] [address] Care Team Providers Care Lab Support Technician Name Role Phone Deborah Quiroga APRN Primary Care Provider [phone] Encounter Details Date Type Department Care Team (Late st Contact Info) Description 06/08/2022 Ancillary Procedure [place] [phone] Deborah Quiroga, HEALTH SERVICES DIRECTOR [address] [address] Social History Tobacco Use Types Packs/Day Years [...] 4:15 PM EDT Office Visit Dermatology at [place] [address] [facility] [place] [phone] Marek Bonilla MD [address] [facility], [place] [address] documented as of this encounter Procedures Procedure [...] FILM LIBRARY OR DERABLES Performing Organization Address City/State/[facility] Co de Phone Number [place], [place] documented in this encounter Visit Diagnoses Not on filedocumented in this encounter Care Teams Lab Support Technician Relationship Specialty Start Date End Date Deborah Quiroga APRN PCP - General Family Medicine 03/24/16 02/04/23 documented as of this encounter
--- OUTSIDE RECORDS SUMMARY | 2024-04-06 13:58 | XMS_ITS | Encounter Summary ---
Author Organization [facility] [place] [address] Care Team Providers Care Bonded Strand Operator Name Role Phone Deborah Quiroga APRN Primary Care Provider [phone] Reason for Referral * Consultation (Routine) - Closed Specialty Diagnoses / Procedures Referred By Crispin maxwell Referred To Contact Neurology Diagnoses Polyneuropathy Deborah Quiroga APRN [address] [place] [address] [facility] [address] [place] [phone] Referral ID Status Reason Start Date Expiration Date V isits Requested Visits Authorized [id number] Closed Consult, Test & Treat 10/29/2022 10/29/2023 1 1 Encounter Details Date Type Department Care Team (Latest Contact Info) Description 10/29/2022 Transcribe Orders eDH Incoming Referrals [phone] Deborah Quiroga APRN [address] [place] [address] Polyneuropathy (Primary Dx) Social History [...] [place] [address] [place] [address] Marek Bonilla MD [address] [place] [address] Scheduled Referrals Name Type Priority Associated Diagnoses Orde r Schedule Referral to Neurology Outpatient Referral Routine Polyneuropathy Ordered: 10/29/2022 documented as of this encounter Visit Diagnoses Diagnosis Polyneuropathy- Primary Unspecified hereditary and idiopathic peripheral neuropathy documented in this encounter Care Teams Bonded Strand Operator Relationship Specialty Start Date End Date Deborah Quiroga APRN PCP - General Family Medicine 03/24/16 02/04/23 documented as of this encounter
--- OUTSIDE RECORDS SUMMARY | 2024-04-06 13:58 | XMS_ITS | Encounter Summary ---
[place] [address] Care Team Providers Care Engine Setter Name Role Phone Deborah Quiroga APRN Primary Care Provider [phone] Encounter Details Date Type Department Care Team (Late st Contact Info) Description 03/04/2020 External Results Hematology [place] [address] [place], Hbumi Cornelius Social History Tobacco Use Types Packs/Day [...] EDT Office Visit Dermatology at [place] [address] [facility] [place] [phone] Marek Bonilla MD [address] [place] [address] documented as of this encounter Procedures Procedure [...] Provider CHEMISTRY ORDERAB LES Performing Organization Address City/[facility]/ZIP Co de Phone Number EXTERNAL LAB * [...] Provider CHEMISTRY ORDERAB LES Performing Organization Address City/[facility]/ZIP Co de Phone Number EXTERNAL LAB * [...] on filedocumented in this encounter Care Teams Engine Setter Relationship Specialty Start Date End Date Deborah Quiroga, SQUIRREL MAN PCP - General Family Medicine 03/24/16 02/04/23 documented as of this encounter
--- OUTSIDE RECORDS SUMMARY | 2024-04-06 13:58 | XMS_ITS | Encounter Summary ---
Author Organization [facility] Address [facility] [place] [address] Care Team Providers Care Clinical Evaluator Name Role Phone Deborah Quiroga APRN Primary Care Provider [phone] Encounter Details Date Type Department Care Team (Latest Contact Info) Description 07/03/2022 12:28 PM EST - 07/03/2022 1:35 PM EST Hospital Encounter [place] [address] Chronic idiopathic neutropenia Discharge Disposition: Home Social [...] 4:15 PM EDT Office Visit Dermatology at [place] [address] [facility] [place] [phone] Marek Bonilla MD [address] [place] [address] documented as of this encounter Procedures Procedure [...] (ABNORMAL) Differential, Automated (07/03/2022 12:40 PM EST) [facility] Neutrophil % 72.9 % [facility] Neutrophil Absolute 2.61 1.70 - 6.10 x10(3)/[facility] Lymph % 18.4 % [facility] Lymphocytes Abs 0.7(L) 0.9 - 3.2 x10(3)/[facility] Monocyte % 8.4 % [facility] Monocyte Abs 0.3 0.3 - 0.9 x10(3)/[facility] Eos % 0.0 % [facility] Eosinophils Abs 0.0 0.0 - 0.4 x10(3)/[facility] Basophil % 0.3 % [facility] Baso Absolute 0.0 0.0 - 0.1 x10(3)/[facility] LABORAT[facility] Immature Gran % 0.00 % [facility] Comment: Immature granulocytes(IG's)percentage and absolute count will include metamyelocytes, myelocytes, and promyelocytes. Blood smears from CBCs yielding IG's will be scanned manually for concordance. If this scan disagrees with the automated IG or if promyelocytes are noted, a manual differential will be performed. Immature Gran Absolute 0.00 0.00 - 0.04 x10(3)/[facility] Blood 07/03/2022 12:4 0 PM EST 07/03/2022 1:03 PM EST Narrative Resulting Agency Comment Spec In Lab Markel Borjas MD HEMATOLOGY ORDERAB LES [facility] [place] [place] [address] * (ABNORMAL) Hemogram (07/03/2022 12:40 PM EST) White Blood Cell 3.6(L) 4.0 - 9.5 x10(3)/[facility] Red Blood Cell 3.61(L) 4.00 - 5.21 x10(6)/mc L [facility] Hemoglobin 11.7 11.7 - 15.5 g/dL [facility] Hematocrit 34.5(L) 35.7 - 45.8 % [facility] Mean Cell Volume 95.6(H) 82.6 - 94.4 fL [facility] Mean Cell Hemoglobin 32.4(H) 27.1 - 32.0 pg [facility] Mean Cell Hemoglobin Concentration 33.9 31.7 - 35.0 g/dL [facility] Platelet 171 145 - 357 x10(3)/mc L [facility] RDW Standard Deviation 40.5 37.0 - 46.0 fL [facility] RDW coefficient of variation 11.5 11.5 - 14.1 % [facility] Mean Platelet Volume 9.2 7.6 - 12.9 [facility] NRBC% auto 0.0 % [facility] NRBC Absolute 0.000 0.000 - 0.000 x10(3)/mc L [facility] Blood 07/03/2022 12:4 0 PM EST 07/03/2022 1:03 PM EST Narrative Resulting Agency Comment Spec In Lab Markel Borjas MD HEMATOLOGY ORDERAB LES [facility] [place] [place] [address] * (ABNORMAL) Comprehensive metabolic panel (non-fasting) (07/03/2022 12:40 PM EST) Glucose 92 65 - 199 mg/dL [facility] Comment:Diabetes: >=200 mg/d L plus symptoms Blood Urea Nitrogen 22(H) 8 - 18 mg/dL [facility] Creatinine 0.80 0.70 - 1.20 mg/dL [facility] Sodium 139 135 - 145 mmol/L [facility] [...] questions. Chloride 105 98 - 107 mmol/L [facility] Carbon Dioxide 23 22 - 31 mmol/L [facility] Anion Gap 11 5 - 15 mmol/L [facility] Calcium 10.1 8.5 - 10.5 mg/dL [facility] Protein, Total 7.6 6.1 - 8.0 g/dL [facility] Albumin 4.1 3.2 - 5.2 g/dL [facility] Aspartate Aminotransferase 25 0 - 30 unit/L [facility] Alanine Aminotransferase 14 0 - 30 unit/L [facility] Alkaline Phosphatase 80 35 - 105 unit/L [facility] Bilirubin, Total 0.3 0.2 - 1.3 mg/dL [facility] Est Glomerular Filtration Rate 81 >=60 mL/min/1. 73 m?? [facility] [...] Lab Markel Borjas MD CHEMISTRY ORDERABL ES [facility] [place] [address] documented in this encounter Visit Diagnoses Diagnosis Chronic idiopathic neutropenia Other neutropenia documented in this encounter Care Teams Clinical Evaluator Relationship Specialty Start Date End Date Deborah Quiroga APRN PCP - General Family Medicine 03/24/16 02/04/23 documented as of this encounter
--- OUTSIDE RECORDS SUMMARY | 2024-04-06 13:58 | XMS_ITS | Encounter Summary ---
Author Organization [facility] [place] [address] Care Team Providers Care Psychiatric Security Nurse Name Role Phone Deborah Quiroga APRN Primary Care Provider [phone] Encounter Details Date Type Department Care Team (Late st Contact Info) Description 11/02/2022 Orders [place] [address] Emily Lyons PA [facility] [place] [address] Aortic valve stenosis, etiology of cardiac valve [...] 4:15 PM EDT Office Visit Dermatology at [place] [address] [place] [address] Marek Bonilla MD [address], [place] [address] documented as of this encounter Visit Diagnoses Diagnosis Aortic valve stenosis, etiology of cardiac valve disease unspecified documented in this encounter Care Teams Psychiatric Security Nurse Relationship Specialty Start Date End Date Deborah Quiroga APRN PCP - General Family Medicine 03/24/16 02/04/23 documented as of this encounter
--- OUTSIDE RECORDS SUMMARY | 2024-04-06 13:58 | XMS_ITS | Encounter Summary ---
Author Organization [facility] [place] [address] Care Team Providers Care Directory Assistance Operator Name Role Phone Junaid Deborah Shields APRN Primary Care Provider [phone] Encounter Details Date Type Department Care Team (Latest Contact Info) Description 11/09/2022 10:37 AM EDT - 11/09/2022 4:53 PM EDT Hospital Encounter [place] [address] Nitesh Escobedo MD [facility] [place] [address] Aortic valve stenosis, etiology of cardiac valve [...] Center 02/05/2023 2:30 PM Marek Bonilla MD [facility] New Medications to be Picked Up None For questions regarding this document or issues relating to this hospitalization on the Medical Service, please contact your inpatient physician through the [facility] Research Home Economist . Issues afterhours and on weekends will be handled by the Hospitalist staff on-call. * Attachments The following attachments cannot be sent through Care Everywhere. * Coronary Angiogram: Post-op (Australian) * Right Heart Catheterization: Pulmonary Artery Catheterization: Post-op (Australian) documented in this encounter Medications at Time [...] - 11/09/2022 11:20 AM EDT . [facility] Interventional Cardiology Adult Pre-Procedure H&P Update: Cardiac Catheterization Purnima Thacker [id number] 1955 Chief Complaint: BONILLA HPI: Purnima Thacker [...] MD Interventional Cardiology 11/09/22 11:43 AM [facility] Pager: [phone] documented in this encounter Plan of Treatment Upcoming Encounters Date Type Department Care Team (Late st Contact Info) Description 03/01/2025 4:15 PM EDT Office Visit Dermatology at [place] [address] [facility] [place] [phone] Marek Bonilla MD [address], [place] [address] documented as of this encounter Procedures Procedure Name Priority Date/Time Associated Diagnosis Comments CARDIAC CATHETERIZATION Routine 11/10/19 1:05 PM EDT Aortic valve stenosis, etiology of cardiac valve disease unspecified Cath Plmt Left Heart Cath & Arts W/Inj & Angio Img S&I ([id number]) 11/09/2022 11:51 AM EDT Aortic valve stenosis, etiology of cardiac valve disease unspecified EKG 12-LEAD Routine 11/09/2022 11:17 AM EDT Aortic valve stenosis, etiology of cardiac valve disease unspecified documented in this encounter Results * CARDIAC CATHETERIZATION (11/09/2022 1:05 PM EDT) Anatomical Region Laterality Modality Other Narrative 11/09/2022 2:01 PM EDT ?[facility] ? Cardiac Catheterization/Intervention Report ? Patient Name: Purnima Thacker. ? Procedure Date: 11/09/2022 ? A #: [id number] ? Primary Physician: Nitesh Escobedo ? Case #: [id number] ? File Name: [id number] ? Catheterization Order Number: [id number] ? [facility] ? Final Report [place], [place] ? Patient Name: ? Purnima M. Kirstie ? ID#: ?[id number] ? : ?1955 ? Procedure Date: ? [...] was designated as ASA Class III. The [facility] clinical frailty scale ?is 4: Vulnerable. [...] (Bezet) 457 ms MUSE SYSTEM Calculated P Fifield 44 degrees MUSE SYSTEM Calculated R Fifield 33 degrees MUSE SYSTEM Calculated T Fifield 30 degrees MUSE SYSTEM INTERPRETATION Sinus rhythm Occasional Premature ventricular complexes Otherwise normal ECG When compared with ECG of 21-SEP-2016 12:26, Premature ventricular complexes are now Present DC interval has decreased Nonspecific T wave abnormality has replaced inverted T waves in Inferior leads I personally reviewed the tracing and edited the fellows interpretation Confirmed by fellow MD Welsh Hanyuan ([id number]) on 11/09/2022 6:17:28 PM Confirmed by Elsa [...] MD) documented in this encounter Care Teams Directory Assistance Operator Relationship Specialty Start Date End Date Deborah Quiroga, RESEARCH INTERVIEWER PCP - General Family Medicine 03/24/16 02/04/23 documented as of this encounter
--- OUTSIDE RECORDS SUMMARY | 2024-04-06 13:58 | XMS_ITS | Encounter Summary ---
Author Organization [facility] Address [facility] [place] [address] Care Team Providers Care Middle School Principal Name Role Phone Junaid Deborah Shields APRN Primary Care Provider [phone] Encounter Details Date Type Department Care Team (Latest Contact Info) Description 06/22/2022 10:00 AM EST Office [place] [phone] Raymond Loredo MD [facility] [place] [address] Raynaud's phenomenon without gangrene; Positive FRANCISCO (antinuclear [...] be done locally or here at [facility] that the current time is not [...] surgery by Dr. Rogers here at [facility]. In addition to painful dysesthesias in [...] over radiocarpal or ulnocarpal joints. Hands: Normal grain operations manager and claw. SJC/TJC 0/0. Knees: Decreased [...] 4:15 PM EDT Office Visit Dermatology at [place] [address] [facility] [place] [address] Marek Bonilla MD [address] [facility] [place] [address] documented as of this encounter Visit Diagnoses Diagnosis Raynaud's phenomenon without gangrene Positive FRANCISCO (antinuclear antibody) Other and unspecified nonspecific immunological findings Primary osteoarthritis involving multiple joints Cervical disc disorder at C6-C7 level with radiculopathy documented in this encounter Care Teams Middle School Principal Relationship Specialty Start Date End Date Deborah Quiroga APRN PCP - General Family Medicine 03/24/16 02/04/23 documented as of this encounter
--- OUTSIDE RECORDS SUMMARY | 2024-04-06 13:58 | XMS_ITS | Encounter Summary ---
[place] [address] Care Team Providers Care Mail Service Coordinator Name Role Phone Deborah Quiroga APRN Primary Care Provider [phone] Encounter Details Date Type Department Care Team (Late st Contact Info) Description 06/05/2021 Interpretation Only [address] [address] Deborah Quiroga NUMERICAL CONTROL NESTING OPERATOR [address] [id number] Social History Tobacco Use Types Packs/Day Years [...] 4:15 PM EDT Office Visit Dermatology at [place] [address] [place] [address] Marek Bonilla MD [address] [facility] [place] [address] documented as of this encounter Procedures Procedure Name Priority Date/Time Associated Diagnosis Comments MAMMO SCREENING CAD BILATERAL Routine 06/05/2021 11:42 AM EDT documented in this encounter Results * Mammo Screening Cad Bilateral (06/05/2021 11:42 AM EDT) PT CLASS O DH RAD ADMITDTTM DH RAD PT RAD INFO [id number]^EV ERETT^DEBORAH^E DH RAD EXAM DESC MADDSC^SCREEN MAMMO [...] please contact the health memory care program director that requested your imaging first. ? Narrative [...] questions please contactthe health memory care program director that requested your imaging first. Electronically signed by: Rocael Villatoro MD, [facility]([phone]), at 06/05/2021 1:27 PM Deborah Quiroga APRN IMGerman MAMMO ORDERABLE S documented in this encounter Visit Diagnoses Not on filedocumented in this encounter Care Teams Mail Service Coordinator Relationship Specialty Start Date End Date Deborah Quiroga APRN PCP - General Family Medicine 03/24/16 02/04/23 documented as of this encounter
--- OUTSIDE RECORDS SUMMARY | 2024-04-06 13:58 | XMS_ITS | Encounter Summary ---
[place] [address] Care Team Providers Care Manager Loan Name Role Phone Deborah Quiroga APRN Primary Care Provider [phone] Reason for Referral * Consultation (Routine) - Closed Specialty Diagnoses / Procedures Referred By Contac t Referred To Contact Rheumatology Diagnoses Positive FRANCISCO (antinuclear antibody) Arthralgia, unspecified joint Sandy Wu APRN [address] [place] [address] [facility] Rheumatology [address] [place] [phone] Referral ID Status Reason Start Date Expiration Date V isits Requested Visits Authorized [id number] Closed Consult, Test & Treat PCP Updated and/or Approved 01/01/2022 01/01/2023 6 6 Encounter Details Date Type Department Care Team (Latest Contact Info) Description 01/01/2022 Transcribe Orders eDH Incoming Referrals [phone] Sandy Wu APRN [address] [place], [place] [id number] Positive FRANCISCO (antinuclear antibody); Arthralgia, unspecified joint [...] 4:15 PM EDT Office Visit Dermatology at [place] [address] [facility] [place] [address] Marek Bonilla MD [address], [place] [address] Scheduled Referrals Name Type Priority Associated Diagnoses Orde r Schedule Referral to Rheumatology Outpatient Referral Routine Positive FRANCISCO (antinuclear antibody) Arthralgia, unspecified joint Ordered: 01/01/2022 documented as of this encounter Visit Diagnoses Diagnosis Positive FRANCISCO (antinuclear antibody) Other and unspecified nonspecific immunological findings Arthralgia, unspecified joint documented in this encounter Care Teams Manager Loan Relationship Specialty Start Date End Date Deborah Quiroga APRN PCP - General Family Medicine 03/24/16 02/04/23 documented as of this encounter
--- OUTSIDE RECORDS SUMMARY | 2024-04-06 13:58 | XMS_ITS | Encounter Summary ---
[place] [address] Care Team Providers Care Junior Copywriter Name Role Phone Deborah Quiroga APRN Primary Care Provider [phone]- [phone] Encounter Details Date Type Department Care Team (Late st Contact Info) Description 01/09/2022 Refill Dermatology at [address] [phone] Lupe Connor RN Social History Tobacco Use [...] Office Visit Dermatology at [address] [phone] Marek Bonilla MD [address] [facility], [place] [address] documented as of this encounter Visit Diagnoses Not on filedocumented in this encounter Care Teams Junior Copywriter Relationship Specialty Start Date End Date Deborah Quiroga APRN PCP - General Family Medicine 03/24/16 02/04/23 documented as of this encounter
--- OUTSIDE RECORDS SUMMARY | 2024-04-06 13:58 | XMS_ITS | Encounter Summary ---
[place] [address] Care Team Providers Care Zinc Miner Name Role Phone Ashley Quirogan Cornelius ANURAG Primary Care Provider [phone] Reason for Visit * Reason Comments Skin Check Encounter Details Date Type Department Care Team (Late st Contact Info) Description 11/11/2020 10:45 AM EDT Office Visit Dermatology at [address] [address] Marek Bonilla MD [address] [facility], [address] DERMATOLOGY [place], [place] [phone] Rosacea; Acrochordon Social History Tobacco Use Types [...] Discussed the possibility of getting this through [facility] or from the [facility] pharmacy if necessary. She has not yet [...] 4:15 PM EDT Office Visit Dermatology at [place] [address] [facility] [place] [address] Marek Bonilla MD [address] [facility], [place] [address] documented as of this encounter Visit Diagnoses Diagnosis Rosacea Acrochordon Unspecified hypertrophic and atrophic condition of skin documented in this encounter Care Teams Zinc Miner Relationship Specialty Start Date End Date Deborah Quiroga APRN PCP - General Family Medicine 03/24/16 02/04/23 documented as of this encounter
--- OUTSIDE RECORDS SUMMARY | 2024-04-06 13:58 | XMS_ITS | Encounter Summary ---
[place] [address] Care Team Providers Care Data Entry Machine Operator Name Role Phone Deborah Quiroga ANURAG Primary Care Provider [phone] Encounter Details Date Type Department Care Team (Late st Contact Info) Description 06/18/2017 External Results Hematology [place] [address] Alexandrea [place]wood RN Neutropenia, unspecified type Social [...] 4:15 PM EDT Office Visit Dermatology at [place] [address] [place] [address] Marek Bonilla MD [address], [place] [address] documented as of this encounter Procedures Procedure [...] MD CHEMISTRY ORDERABL ES Performing Organization Address City/[facility] Co de Phone Number EXTERNAL LAB * [...] type documented in this encounter Care Teams Data Entry Machine Operator Relationship Specialty Start Date End Date Deborah Quiroga APRN PCP - General Family Medicine 03/24/16 02/04/23 documented as of this encounter
--- OUTSIDE RECORDS SUMMARY | 2024-04-06 13:58 | XMS_ITS | Encounter Summary ---
[place] [address] Care Team Providers Care Health Safety Coordinator Name Role Phone Deborah Quiroga APRN Primary Care Provider [phone]- [phone] Encounter Details Date Type Department Care Team (Late st Contact Info) Description 06/05/2021 Interpretation Only [address] [address] Deborah Quiroga SAP SENIOR DEVELOPER [address] [id number] Social History Tobacco Use Types Packs/Day Years [...] 4:15 PM EDT Office Visit Dermatology at [place] [address] [facility] [place] [address] Marek Bonilla MD [address] [facility], [place] [address] documented as of this encounter Procedures Procedure Name Priority Date/Time Associated Diagnosis Comments DXA CENTRAL SPINE, HIP, AND/OR WHOLE BODY (GENERIC) Routine 06/05/2021 11:58 AM EDT documented in this encounter Results * DXA Central Spine, Hip, and/or Whole Body (Generic) (06/05/2021 11:58 AM EDT) PT CLASS O RAD ADMITDTTM RAD PT RAD INFO [id number]^E VERETT^DEBORAH ^E RAD EXAM DESC XDXAC^DEXA SCAN AXIAL^[facility] Anatomical Region Laterality Modality C-spine, Hip [...] questions please contact the health home care giver that requested your imaging first. ? Narrative [...] have questions please contactthe health home care giver that requested your imaging first. Deborah Quiroga APRN IMGerman DEXA ORDERABLES documented in this encounter Visit Diagnoses Not on filedocumented in this encounter Care Teams Health Safety Coordinator Relationship Specialty Start Date End Date Deborah Quiroga APRN PCP - General Family Medicine 03/24/16 02/04/23 documented as of this encounter
--- OUTSIDE RECORDS SUMMARY | 2024-04-06 13:58 | XMS_ITS | Encounter Summary ---
[place] [address] Care Team Providers Care Medical Technical Writer Name Role Phone Deborah Quiroga APRN Primary Care Provider [phone]- [phone] Encounter Details Date Type Department Care Team [...] PM EDT Office Visit Dermatology at [address] [place] [address] Marek Bonilla MD [address], [place] [address] documented as of this encounter Visit Diagnoses Not on filedocumented in this encounter Care Teams Medical Technical Writer Relationship Specialty Start Date End Date Deborah Quiroga APRN PCP - General Family Medicine 03/24/16 02/04/23 documented as of this encounter
--- OUTSIDE RECORDS SUMMARY | 2024-04-06 13:58 | XMS_ITS | Encounter Summary ---
Author Organization [place] [address] Care Team Providers Care Vrt Mechanic Name Role Phone Ashley Quirogan [place] ANURAG Primary Care Provider [phone] Encounter Details Date Type Department Care Team (Late st Contact Info) Description 12/04/2016 External Results Hematology [place] [address] Teresa Dodson, RN Social History Tobacco Use [...] 4:15 PM EDT Office Visit Dermatology at [place] [address] [facility] [place] [address] Marek Bonilla MD [address], [place] [address] documented as of this encounter Procedures Procedure Name Priority Date/Time Associated Diagnosis Comments CBC (WITH DIFF) Routine 12/03/2016 11:35 AM EDT COMPREHENSIVE METABOLIC PANEL Routine 12/03/2016 11:35 AM EDT documented in this encounter Results * (ABNORMAL) Comprehensive metabolic panel (non-fasting) (12/03/2016 11:35 AM EDT) Glucose 85(Supervisor M[employer] al Lab) Blood Urea Nitrogen 11([facility]visor [employer] al Lab) Creatinine 0.93(Exte rnal Lab) Sodium 140(Exter nal Lab) Potassium 4.2(Exter nal Lab) Chloride 104(Exter nal Lab) Calcium 10.0(Exte rnal Lab) Protein, Total 8.1(Exter nal Lab) Albumin 3.5(Exter nal Lab) Bilirubin, Total 0.25(Exte rnal Lab) Alkaline Phosphatase 96(Supervisor [employer] al Lab) Aspartate Aminotransferase 18([facility]visor [employer] al Lab) Alanine Aminotransferase 21(Supervisor [employer] al Lab) Blood specimen (specimen) 12/03/2016 11:35 AM EDT Historical Provider CHEMISTRY ORDERAB LES * (ABNORMAL) CBC (with Diff) (12/03/2016 11:35 AM EDT) White Blood Cell 1.61(EXTER NAL/ABN) 4.4 - 10.8 Hemoglobin 13.0(Exter nal Lab) Hematocrit 39.8(Exter nal Lab) Platelet 248(Supervisor [employer] al Lab) Neutrophil Absolute (ANC) - Automated 0.5(EDUCATION REP AL/ABN) Blood specimen (specimen) 12/03/2016 11:35 AM EDT Historical Provider HEMATOLOGY ORDERA BLES documented in this encounter Visit Diagnoses Not on filedocumented in this encounter Care Teams Vrt Mechanic Relationship Specialty Start Date End Date Deborah Quiroga, DRIVE TESTER PCP - General Family Medicine 03/24/16 02/04/23 documented as of this encounter
--- OUTSIDE RECORDS SUMMARY | 2024-04-06 13:58 | XMS_ITS | Encounter Summary ---
[place] [address] Care Team Providers Care Loan Representative Name Role Phone JunaidDeborah APRN Primary Care Provider [phone] Reason for Visit * Reason Comments Follow-up Encounter Details Date Type Department Care Team (Late st Contact Info) Description 01/10/2021 4:30 PM EDT Office Visit Dermatology at [place] [address] [facility] [place] [address] Marek Bonilla MD 580 [facility], TODD A DERMATOLOGY [place], [place] [id number] Rosacea Social History Tobacco Use Types Packs/Day [...] cutaneous and ocular 2. Previously told by commodities manager that she had corneal tears from [...] 3 refills. Will call this in her [facility] in [place] 3. Continue metronidazole 0.75% gel applying once [...] PM EDT Office Visit Dermatology at [address] [address] Marek Bonilla MD [address] [facility], [place] [address] documented as of this encounter Visit Diagnoses Diagnosis Rosacea documented in this encounter Care Teams Loan Representative Relationship Specialty Start Date End Date Deborah Quiroga APRN PCP - General Family Medicine 03/24/16 02/04/23 documented as of this encounter
--- OUTSIDE RECORDS SUMMARY | 2024-04-06 13:58 | XMS_ITS | Encounter Summary ---
Author Organization [facility] Address [facility] [place] [address] Care Team Providers Care Car Washer Name Role Phone Deborah Quiroga APRN Primary Care Provider [phone] Encounter Details Date Type Department Care Team (Late st Contact Info) Description 06/18/2017 11:00 AM EST Office Visit Hematology [place] [address] Markel Borjas MD [facility] [address] [place] [address] Neutropenia, unspecified type Social History Tobacco Use [...] 06/18/2017 11:00 AM EST Hematology Outpatient Clinic [facility] Hematology Outpatient Consult Note CC: 60 [...] TOUCH PREP, CLOT SECTION, CORE ??BIOPSY); [OSR# [id number], COLLECTED 06/23/2016, 19 SLIDES]: ?1. ??Normocellular marrow [...] a clonal lymphoproliferative or myeloproliferative disorder (OSR# [id number]) Chromosome analysis on the marrow aspirate revealed [...] working the same job and participating in [employer] patients. Past Medical/Surgical History: 1. Leukopenia -element of neutropenia, as noted above 2. Aortic Stenosis -severe -AVR surgery 3. Hypercholesterolemia 4. Depression 5. Hypertension 6. 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 Extremities: No edema. Labs: Hgb= 13 Hfnc=048 ANC= 0.6 Imaging As above - reviewed [...] EDT Office Visit Dermatology at [place] [address] [place] [address] Maerk Bonilla MD [address] [facility] [address], [address] Katherine [place] [address] documented as of this encounter Visit Diagnoses Diagnosis Neutropenia, unspecified type documented in this encounter Care Teams Car Washer Relationship Specialty Start Date End Date Deborah Quiroga APRN PCP - General Family Medicine 03/24/16 02/04/23 documented as of this encounter
--- OUTSIDE RECORDS SUMMARY | 2024-04-06 13:58 | XMS_ITS | Encounter Summary ---
[place] [address] Care Team Providers Care Laborer Plumbing Name Role Phone Deborah Quiroga APRN Primary Care Provider [phone]- [phone] Encounter Details Date Type Department Care Team (Late st Contact Info) Description 11/11/2020 Refill Dermatology at [address] [phone] Taylor Malone, CT TECHNOLOGIST Social History Tobacco Use Types Packs/Day Years [...] PM EDT Office Visit Dermatology at [address] [phone] Marek Bonilla MD [address] [facility], [place] [address] documented as of this encounter Visit Diagnoses Not on filedocumented in this encounter Care Teams Laborer Plumbing Relationship Specialty Start Date End Date Deborah Quiroga APRN PCP - General Family Medicine 03/24/16 02/04/23 documented as of this encounter
--- OUTSIDE RECORDS SUMMARY | 2024-04-06 13:58 | XMS_ITS | Encounter Summary ---
[place] [address] Care Team Providers Care R D Engineer Name Role Phone Deborah Quiroga APRN Primary Care Provider [phone]- [phone] Encounter Details Date Type Department Care Team [...] PM EDT Office Visit Dermatology at [address] [address] Marek Bonilla MD [address] [facility], [place] [address] documented as of this encounter Visit Diagnoses Not on filedocumented in this encounter Care Teams R D Engineer Relationship Specialty Start Date End Date Deborah Quiroga APRN PCP - General Family Medicine 03/24/16 02/04/23 documented as of this encounter
--- OUTSIDE RECORDS SUMMARY | 2024-04-06 13:58 | XMS_ITS | Encounter Summary ---
Author Organization [facility] Address [facility] [place] [address] Care Team Providers Care Falsework Builder Name Role Phone Deborah Quiroga APRN Primary Care Provider [phone] Encounter Details Date Type Department Care Team (Late st Contact Info) Description 02/06/2020 Orders Only [place] [address] Markel Borjas MD [facility] [address] [place] [address] Neutropenia, unspecified type Social History Tobacco Use [...] 4:15 PM EDT Office Visit Dermatology at [place] [address] [facility] [place] [phone] Marek Bonilla MD [address] [facility] [address], [place] [address] documented as of this encounter Visit Diagnoses Diagnosis Neutropenia, unspecified type documented in this encounter Care Teams Falsework Builder Relationship Specialty Start Date End Date Deborah Quiroga APRN PCP - General Family Medicine 03/24/16 02/04/23 documented as of this encounter
--- OUTSIDE RECORDS SUMMARY | 2024-04-06 13:58 | XMS_ITS | Encounter Summary ---
[place] [address] Care Team Providers Care Service Architect Name Role Phone Deborah Quiroga APRN Primary Care Provider [phone]- [phone] Encounter Details Date Type Department Care Team (Late st Contact Info) Description 01/13/2021 Refill Dermatology at [address] [phone] Taylor Malone, APPRENTICE LINEMAN THIRD STEP Social History Tobacco Use Types Packs/Day Years [...] PM EDT Office Visit Dermatology at [address] [phone] aMrek Bonilla MD 580 [facility], [place] [address] documented as of this encounter Visit Diagnoses Not on filedocumented in this encounter Care Teams Service Architect Relationship Specialty Start Date End Date Deborah Quiroga APRN PCP - General Family Medicine 03/24/16 02/04/23 documented as of this encounter
--- OUTSIDE RECORDS SUMMARY | 2024-04-06 13:58 | XMS_ITS | Encounter Summary ---
Author Organization [facility] Address [facility] [place] [address] Care Team Providers Care Heel Shaver Name Role Phone Ashley Quirogazac Shields APRN Primary Care Provider [phone] Reason for Referral * Consultation (Routine) - Closed Specialty Diagnoses / Procedures Referred By Contac t Referred To Contact Neurology Diagnoses Neck pain Popeye Rogers MD [facility] [place] [address] Kyra Haas MD [facility] [address] [address] Referral ID Status Reason Start Date Expiration Date V isits Requested Visits Authorized [id number] Closed Consult, Test & Treat 06/29/2022 06/29/2023 1 1 Reason for Visit * Reason Comments Neck Pain Weak in both arms, p ain and tingling in arms and hands Encounter Details Date Type Department Care Team (Late st Contact Info) Description 06/29/2022 10:20 AM EST Office Visit [place] [address] Popeye Rogesr MD [facility] [place] [address] Neck pain Social History Tobacco Use Types [...] have EMG and nerve conduction studies in [place] that showed carpal tunnel syndrome. I do not have a copy of that report. documented in this encounter Plan of Treatment Upcoming Encounters Date Type Department Care Team (Late st Contact Info) Description 03/01/2025 4:15 PM EDT Office Visit Dermatology at [place] [address] [facility] [place] [address] Marek Bonilla MD [address], [place] [address] Scheduled Referrals Name Type Priority Associated Diagnoses Orde r Schedule Referral to Neurology Outpatient Referral Routine Neck pain Ordered: 06/29/2022 documented as of this encounter Visit Diagnoses Diagnosis Neck pain Cervicalgia documented in this encounter Care Teams Heel Shaver Relationship Specialty Start Date End Date Deborah Quiroga APRN PCP - General Family Medicine 03/24/16 02/04/23 documented as of this encounter
--- OUTSIDE RECORDS SUMMARY | 2024-04-06 13:58 | XMS_ITS | Encounter Summary ---
Author Organization [facility] Address [facility] [place] [address] Care Team Providers Care Parking Patroller Name Role Phone Deborah Quiroga ANURAG Primary Care Provider [phone] Encounter Details Date Type Department Care Team (Late Contact Info) Description 02/07/2020 Telephone Hematology [place] [phone] Ellen Rios RN Social History Tobacco Use [...] 02/07/2020 12:59 PM EDT Message received from police department secretary: Injection/Infusion Referral Services to be provided for pt are: CBC only at [facility]- Pt will go by 02/27 Orders faxed to [phone]). Spoke with pt. She will call [facility] directly to schedule a time that works for her. documented in this encounter Plan of Treatment Upcoming Encounters Date Type Department Care Team (Late Contact Info) Description 03/01/2025 4:15 PM EDT Office Visit Dermatology at [address] [address] Marek Bonilla MD [address] [facility], [place] [address] documented as of this encounter Visit Diagnoses Not on filedocumented in this encounter Care Teams Parking Patroller Relationship Specialty Start Date End Date Deborah Quiroga APRN PCP - General Family Medicine 03/24/16 02/04/23 documented as of this encounter
--- OUTSIDE RECORDS SUMMARY | 2024-04-06 13:58 | XMS_ITS | Encounter Summary ---
[place] [address] Care Team Providers Care Warehouse Coordinator Name Role Phone Deborah Quiroga APRN Primary Care Provider [phone] Encounter Details Date Type Department Care Team (Late st Contact Info) Description 07/21/2017 Orders Only Hematology [place] [address] Alexandrea Greenwood RN Other neutropenia Social History [...] 4:15 PM EDT Office Visit Dermatology at [place] [address] [place] [address] Marek Bonilla MD [address] [facility] [facility] [address], [place] [address] documented as of this encounter Visit Diagnoses Diagnosis Other neutropenia documented in this encounter Care Teams Warehouse Coordinator Relationship Specialty Start Date End Date Deborah Quiroga APRN PCP - General Family Medicine 03/24/16 02/04/23 documented as of this encounter
--- OUTSIDE RECORDS SUMMARY | 2024-04-06 13:58 | XMS_ITS | Encounter Summary ---
[place] [address] Care Team Providers Care Personnel Manager Name Role Phone Deborah Qiuroga APRN Primary Care Provider [phone] Encounter Details Date Type Department Care Team (Latest Contact Info) Description 10/14/2016 - 10/14/2016 11:59 PM EDT Hospital Encounter [place] [phone] Alirio Esparza MD Pain Discharge Disposition: Home [...] 4:15 PM EDT Office Visit Dermatology at [place] [address] [facility] [place] [address] Marek Bonilla MD [address], [place] [address] documented as of this encounter Procedures Procedure Name Priority Date/Time Associated Diagnosis Comments FILM LIBRARY STORAGE ONLY DX CHEST Routine 10/14/2016 12:00 AM EDT Pain documented in this encounter Results * Film Library- Storage Only DX Chest (10/14/2016 12:00 AM EDT) Narrative [facility] - 10/14/2016 5:16 PM EDT This exam is for storage only and is auto-finalizing. Alirio Esparza MD IMG FILM LIBRARY OR DERABLES [place], [place] documented in this encounter Visit Diagnoses Diagnosis Pain Generalized pain documented in this encounter Care Teams Personnel Manager Relationship Specialty Start Date End Date Deborah Quiroga APRN PCP - General Family Medicine 03/24/16 02/04/23 documented as of this encounter
--- OUTSIDE RECORDS SUMMARY | 2024-04-06 13:58 | XMS_ITS | Encounter Summary ---
Author Organization [facility] [place] [address] Care Team Providers Care Tax Director Name Role Phone Deborah Quiroga APRN Primary Care Provider [phone] Encounter Details Date Type Department Care Team (Late st Contact Info) Description 11/09/2022 11:30 AM EDT - 11/09/2022 12:30 PM EDT [place] [address] Nitesh Escobedo MD [facility] [place] [address] CARDIAC CATHETERIZATION Social History Tobacco Use Types [...] Center 02/05/2023 2:30 PM Marek Bonilla MD [facility] New Medications to be Picked Up None For questions regarding this document or issues relating to this hospitalization on the Medical Service, please contact your inpatient physician through the [facility] Outpatient Clerk . Issues afterhours and on weekends will be handled by the Hospitalist staff on-call. * Attachments The following attachments cannot be sent through Care Everywhere. * Coronary Angiogram: Post-op (Bruneian) * Right Heart Catheterization: Pulmonary Artery Catheterization: Post-op (Bruneian) documented in this encounter Medications at Time [...] MD - 11/09/2022 11:20 AM EDT . [facility] Heart & Vascular Center Interventional Cardiology Adult Pre-Procedure H&P Update: Cardiac Catheterization Purnima Thacker [id number] 1955 Chief Complaint: BONILLA HPI: Purnima Thacker [...] Marrero MD Interventional Cardiology 11/09/22 11:43 AM [facility] Pager: [phone] documented in this encounter Plan of Treatment Upcoming Encounters Date Type Department Care Team (Late st Contact Info) Description 03/01/2025 4:15 PM EDT Office Visit Dermatology at [place] [address] [facility] [place] [address] Marek Bonilla MD [address] [facility], [place] [address] documented as of this encounter Procedures Procedure Name Priority Date/Time Associated Diagnosis Comments CARDIAC CATHETERIZATION Routine 11/10/19 1:05 PM EDT Aortic valve stenosis, etiology of cardiac valve disease unspecified Cath Plmt Left Heart Cath & Arts W/Inj & Angio Img S&I ([id number]) 11/09/2022 11:51 AM EDT Aortic valve stenosis, etiology of cardiac valve disease unspecified EKG 12-LEAD Routine 11/09/2022 11:17 AM EDT Aortic valve stenosis, etiology of cardiac valve disease unspecified documented in this encounter Results * CARDIAC CATHETERIZATION (11/09/2022 1:05 PM EDT) Anatomical Region Laterality Modality Other Narrative 11/09/2022 2:01 PM EDT [facility] ? Cardiac [facility]ter[facility]/Intervention Report ? Patient Name: Kirstie, Purnima M. ? Procedure Date: 11/09/2022 ? A #: [id number] ? Primary Physician: Nitesh Escobedo ? Case #: [id number] ? File Name: [id number] ? Catheterization Order Number: [id number] ? [facility] ? Final Report [place], [place] ? Patient Name: ? Purnima M. Kirstie ? ID#: ?[id number] ? : ?1955 ? Procedure Date: ? [...] (Bezet) 457 ms MUSE SYSTEM Calculated P Jenkins 44 degrees MUSE SYSTEM Calculated R Jenkins 33 degrees MUSE SYSTEM Calculated T Jenkins 30 degrees MUSE SYSTEM INTERPRETATION Sinus rhythm Occasional Premature ventricular complexes Otherwise normal ECG When compared with ECG of 21-SEP-2016 12:26, Premature ventricular complexes are now Present VA interval has decreased Nonspecific T wave abnormality has replaced inverted T waves in Inferior leads I personally reviewed the tracing and edited the fellows interpretation Confirmed by fellow MD Anitha, Carissa ([id number]) on 11/09/2022 6:17:28 PM Confirmed by Elsa [...] Routine 1230 (Given - Provid er: Mary Biag RN) iohexoL (Omnipaque) (350 mg/mL) solution (CANCELED) [...] MD) documented in this encounter Care Teams Tax Director Relationship Specialty Start Date End Date Deborah Quiroga, MANAGER ASSURANCE PCP - General Family Medicine 03/24/16 02/04/23 documented as of this encounter
--- OUTSIDE RECORDS SUMMARY | 2024-04-06 13:58 | XMS_ITS | Encounter Summary ---
Author Organization [facility] Address [facility] [place] [address] Care Team Providers Care Application Support Administrator Name Role Phone Junaid Deborah Shields APRN Primary Care Provider [phone] Reason for Visit * Reason Comments Schedule Office Case Pain right leg Encounter Details Date Type Department Care Team (Late st Contact Info) Description 12/11/2016 9:00 AM EDT Office Visit Hematology [place] [address] Markel Borjas MD [facility] [address] [place] [address] Neutropenia, unspecified type Social History Tobacco Use [...] 12/11/2016 9:00 AM EDT Hematology Outpatient Clinic [facility] Hematology Outpatient Consult Note CC: [...] TOUCH PREP, CLOT SECTION, CORE ??BIOPSY); [OSR# [id number], COLLECTED 06/23/2016, 19 SLIDES]: ?1. 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 Extremities: No edema. Labs: Hgb= 13 Bfuz=041 ANC= 0.5 Imaging As above - reviewed [...] 4:15 PM EDT Office Visit Dermatology at [place] [address] [place] [address] Marek Bonilla MD [address] [facility], [place] [address] documented as of this encounter Results * (ABNORMAL) CBC (with Diff) (06/11/2017 1:19 PM EST) Pathologist [facility] White Blood Cell 2.28(EXTER NAL/ABN) 4.4 - [...] type documented in this encounter Care Teams Application Support Administrator Relationship Specialty Start Date End Date Deborah Quiroga, MANAGER WEB APPLICATION PCP - General Family Medicine 03/24/16 02/04/23 documented as of this encounter
--- OUTSIDE RECORDS SUMMARY | 2024-04-06 13:58 | XMS_ITS | Encounter Summary ---
Author Organization [facility] Address [facility] [place] [address] Care Team Providers Care Glove Turner And Former Automatic Name Role Phone Deborah Quiroga APRN Primary Care Provider [phone] Reason for Visit * Consultation (Routine) - Closed Specialty Diagnoses / Procedures Referred By Contkrystle t Referred To Contact Rheumatology Diagnoses Positive FRANCISCO (antinuclear antibody) Arthralgia, unspecified joint Sandy Wu APRN [address] [place] [address] [facility] [address] [place] [address] Referral ID Status Reason Start Date Expiration Date V isits Requested Visits Authorized [id number] Closed Consult, Test & Treat PCP Updated and/or Approved 01/01/2022 01/01/2023 6 6 Encounter Details Date Type Department Care Team (Latest Contact Info) Description 01/20/2022 10:00 AM EDT [place] [address] Raymond Loredo MD [facility] [place] [address] Rosacea; Raynaud's phenomenon without gangrene; [...] over radiocarpal or ulnocarpal joints. Hands: Normal behavior management specialist and claw. SJC/TJC 0/0. Hips: Full [...] be done locally or here at [facility] that the current time is not particularly interested it seems Raymond Loredo MD documented in this encounter Plan of Treatment Upcoming Encounters Date Type Department Care Team (Late st Contact Info) Description 03/01/2025 4:15 PM EDT Office Visit Dermatology at [place] [address] [facility] [place] [address] Marek Bonilla MD [address], [place] [address] Scheduled Referrals Name Type Priority Associated Diagnoses [...] syndrome documented in this encounter Care Teams Glove Turner And Former Automatic Relationship Specialty Start Date End Date Deborah Quiroga APRN PCP - General Family Medicine 03/24/16 02/04/23 documented as of this encounter
--- OUTSIDE RECORDS SUMMARY | 2024-04-06 13:58 | XMS_ITS | Encounter Summary ---
[place] [address] Care Team Providers Care Vmware Consultant Name Role Phone Ashley Quirogan Cornelius ANURAG Primary Care Provider [phone] Reason for Visit * Reason Comments Acrochordon Rosacea Encounter Details Date Type Department Care Team (Late st Contact Info) Description 12/05/2020 3:00 PM EDT Office Visit Dermatology at [address] [address] Marek Bonilla MD [address] [facility], [place] [address] Inflamed acrochordon Social History Tobacco Use Types [...] 4:15 PM EDT Office Visit Dermatology at [place] [address] [place] [address] Marek Bonilla MD [address] [facility] [place] [address] documented as of this encounter Visit Diagnoses Diagnosis Inflamed acrochordon Unspecified hypertrophic and atrophic condition of skin documented in this encounter Care Teams Vmware Consultant Relationship Specialty Start Date End Date Deborah Quiroga APRN PCP - General Family Medicine 03/24/16 02/04/23 documented as of this encounter
--- OUTSIDE RECORDS SUMMARY | 2024-04-06 13:58 | XMS_ITS | Encounter Summary ---
[place] [address] Care Team Providers Care Ware Carrier Name Role Phone Junaid, Deborah Shields APRN Primary Care Provider [phone] Encounter Details Date Type Department Care Team (Late st Contact Info) Description 10/20/2016 11:20 AM EDT Office [place] [address] Alirio Esparza MD S/P AVR Social History [...] all of her postoperative tests done at [facility]. Her echo shows a well-seated valve. Her EF, for some reason, was read as in the 45% to 50% range. She had a normal EF to start. I think that will need to be repeated at [facility]. She has no perivalve leak. Her [...] should continue to see Dr. Burrell, her textile colorist dyer at [facility]. cc: Dr. Burrell documented in this encounter Plan of Treatment Upcoming Encounters Date Type Department Care Team (Late st Contact Info) Description 03/01/2025 4:15 PM EDT Office Visit Dermatology at [place] [address] [facility] [place] [address] Marek Bonilla MD [address] [facility], [place] [address] documented as of this encounter Visit Diagnoses Diagnosis S/P AVR Heart valve replaced by other means documented in this encounter Care Teams Ware Carrier Relationship Specialty Start Date End Date Deborah Quiroga APRN PCP - General Family Medicine 03/24/16 02/04/23 documented as of this encounter
--- OUTSIDE RECORDS SUMMARY | 2024-04-06 13:58 | XMS_ITS | Encounter Summary ---
Author Organization [facility] Address [facility] [place] [address] Care Team Providers Care Bath Tester Name Role Phone Deborah Quiroga APRN Primary Care Provider [phone] Encounter Details Date Type Department Care Team (Latest Contact Info) Description 07/03/2022 1:36 PM EST - 07/03/2022 11:59 PM EST Hospital Encounter Hematology [place] [address] Discharge Disposition: Home Social History Tobacco Use [...] 4:15 PM EDT Office Visit Dermatology at [place] [address] [place] [address] Marek Bonilla MD 580 [facility], [place] [address] documented as of this encounter Procedures Procedure Name Priority Date/Time Associated Diagnosis Comments FOLATE, SERUM Routine 07/03/2022 1:59 PM EST VITAMIN B12 Routine 07/03/2022 1:59 PM EST documented in this encounter Results * Folate, serum (07/03/2022 1:59 PM EST) Folate >20.0 4.8 - 24.2 ng/mL [facility] Blood Venous Draw / Unknown 07/03/2022 1:59 PM EST 07/03/2022 2:13 PM EST Narrative Resulting Agency Comment Spec In Lab Markel Borjas MD CHEMISTRY ORDERABL ES Performing Organization Address City/[facility]/ZIP Co de Phone Number [facility] [place] [address] * Vitamin B12 (07/03/2022 1:59 PM EST) Vitamin B12 449 232 - 1,245 pg/mL [facility] Blood Venous Draw / Unknown 07/03/2022 1:59 PM EST 07/03/2022 2:13 PM EST Narrative Resulting Agency Comment Spec In Lab Markel Borjas MD CHEMISTRY ORDERABL ES Performing Organization Address [facility] [place] [address] documented in this encounter Visit Diagnoses Not on filedocumented in this encounter Care Teams Bath Tester Relationship Specialty Start Date End Date Deborah Quiroga APRN PCP - General Family Medicine 03/24/16 02/04/23 documented as of this encounter
--- OUTSIDE RECORDS SUMMARY | 2024-04-06 13:58 | XMS_ITS | Encounter Summary ---
Author Organization [place] [address] Care Team Providers Care Master Esthetician Name Role Phone Ashley Quirogazac Shields APRN Primary Care Provider [phone] Reason for Visit * Reason Comments Annual Exam Encounter Details Date Type Department Care Team (Late st Contact Info) Description 01/09/2022 3:15 PM EDT Office Visit Dermatology at [address] [address] Marek Bonilla MD 580 [facility], [place] [address] DERMATOLOGY [place], [place] [id number] Rosacea Social History Tobacco Use Types Packs/Day [...] cutaneous and ocular 2. Previously told by yardage estimator that she had corneal tears from her [...] refills. We will call this into her [facility] in [place] 3. Continue metronidazole 0.75% gel applying every other day after washing as needed. We will give her 45 g with 5 refills. 4. Return to clinic in a year for repeat check CC: Deborah Quiroga APRN documented in this encounter Plan of Treatment Upcoming Encounters Date Type Department Care Team (Late st Contact Info) Description 03/01/2025 4:15 PM EDT Office Visit Dermatology at [place] 580 [facility] [place] [address] Marek Bonilla MD 580 [facility], [place] [address] documented as of this encounter Visit Diagnoses Diagnosis Rosacea documented in this encounter Care Teams Master Esthetician Relationship Specialty Start Date End Date Deborah Quiroga APRN PCP - General Family Medicine 03/24/16 02/04/23 documented as of this encounter
--- OUTSIDE RECORDS SUMMARY | 2024-04-06 13:58 | XMS_ITS | Encounter Summary ---
Author Organization [facility] Address [facility] [place] [address] Care Team Providers Care River [employer] Soundings Group Leader Name Role Phone Deborah Quiroga APRN Primary Care Provider [phone] Reason for Visit * Reason Comments Follow-up Encounter Details Date Type Department Care Team (Late st Contact Info) Description 07/03/2022 1:30 PM EST Office Visit Hematology [place] [address] Markel Borjas MD [facility] [address] HEMATOLOGY [place] [address] Consuelo Sommer APRN [facility] [address] HEMATOLOGY [place] [address] Chronic idiopathic neutropenia; Dysuria Social History Tobacco [...] 07/03/2022 1:30 PM EST Hematology Outpatient Clinic [facility] [...] TOUCH PREP, CLOT SECTION, CORE ??BIOPSY); [OSR# [id number], COLLECTED 06/23/2016, 19 SLIDES]: ?1. 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 Extremities: No edema. Labs: Hgb= 11.7 Paye=738 ANC= 2.5 Imaging As above - reviewed [...] 4:15 PM EDT Office Visit Dermatology at [place] [address] [place] [address] Marek Bonilla MD 580 [facility], [place] [address] documented as of this encounter Procedures Procedure [...] - GEN ERAL ORDERABLES Performing Organization Address [facility] de Phone Number [facility] [place] [address] * (ABNORMAL) Urinalysis Microscopic Exam (07/03/2022 2:00 [...] Borjas MD URINE ORDERABLES Performing Organization Address [facility] de Phone Number [facility] [place] [address] * (ABNORMAL) Urinalysis with reflex Culture (07/03/2022 2:00 PM EST) Glucose, Urine Dipstick Negative Negative mg/dL [facility] [...] LABORATORY Leukocytes, Urine Dipstick Small(A) Negative [facility] Appearance, Urine Dipstick Clear Clear [facility] Specific [place] Urine Automated 1.022 1.005 - 1.030 [facility] Color, Urine Dipstick Yellow Yellow [facility] Reflex to Culture Yes [facility] Clean Catch Urine 07/03/2022 2:00 PM EST 07/03/2022 2:29 PM EST Narrative Resulting Agency Comment Spec In Lab Markel Borjas MD URINE ORDERABLES [facility] [place] [address] * (ABNORMAL) Comprehensive metabolic panel (non-fasting) (07/03/2022 [...] MD CHEMISTRY ORDERABL ES [facility] [place] [address] documented in this encounter Visit Diagnoses Diagnosis Chronic idiopathic neutropenia Other neutropenia Dysuria documented in this encounter Care Teams [employer] [place] [employer]ings Group Leader Relationship Specialty Start Date End Date Deborah Quiroga APRN PCP - General Family Medicine 03/24/16 02/04/23 documented as of this encounter
--- OUTSIDE RECORDS SUMMARY | 2024-04-06 13:58 | XMS_ITS | Encounter Summary ---
Author Organization [facility] [address] Care Team Providers Care Contact Lens Fitter Name Role Phone Ashley Quirogan [place] ANURAG Primary Care Provider [phone] Reason for Visit * Reason Onset Date Comments Results 12/03/2016 Encounter Details Date Type Department Care Team (Late Contact Info) Description 12/03/2016 Telephone Hematology [place] [address] Yudith Valentine RN Results Social History Tobacco [...] RN received call from Maddy at [facility] reporting critical WBC at 1.61, and ANC of 0.5. She will fax the full results to this office for credit risk review officer notified DR Borjas of above results documented in this encounter Plan of Treatment Upcoming Encounters Date Type Department Care Team (Late st Contact Info) Description 03/01/2025 4:15 PM EDT Office Visit Dermatology at [address] [address] Marek Bonilla MD [address] [facility] [address], [place] [address] documented as of this encounter Visit Diagnoses Not on filedocumented in this encounter Care Teams Contact Lens Fitter Relationship Specialty Start Date End Date Deborah Quiroga APRN PCP - General Family Medicine 03/24/16 02/04/23 documented as of this encounter
--- OUTSIDE RECORDS SUMMARY | 2024-04-06 13:58 | XMS_ITS | Encounter Summary ---
[place] [address] Care Team Providers Care Rag Cutting Machine Operator Name Role Phone Deborah Quiroga APRN Primary Care Provider [phone] Encounter Details Date Type Department Care Team [...] PM EDT Office Visit Dermatology at [address] [place] [address] Marek Bonilla MD [address] [facility] [address], [place] [address] documented as of this encounter Visit Diagnoses Not on filedocumented in this encounter Care Teams Rag Cutting Machine Operator Relationship Specialty Start Date End Date Deborah Quiroga APRN PCP - General Family Medicine 03/24/16 02/04/23 documented as of this encounter
--- OUTSIDE RECORDS SUMMARY | 2024-04-06 13:58 | XMS_ITS | Encounter Summary ---
[place] [address] Care Team Providers Care Life Insurance Sales Name Role Phone Deborah Quiroga APRN Primary Care Provider [phone] Encounter Details Date Type Department Care Team (Late st Contact Info) Description 06/17/2022 Ancillary Procedure [place] [address] Deborah Quiroga, WOODWIND INSTRUMENT REPAIRER [address] [address] Social History Tobacco Use Types Packs/Day Years [...] 4:15 PM EDT Office Visit Dermatology at [place] 580 [facility] [place] [address] Marek Bonilla MD 580 [facility], [place] [address] documented as of this encounter Procedures Procedure [...] FILM LIBRARY OR DERABLES Performing Organization Address City/State/[facility] Co de Phone Number [place], [place] documented in this encounter Visit Diagnoses Not on filedocumented in this encounter Care Teams Life Insurance Sales Relationship Specialty Start Date End Date Deborah Quiroga APRN PCP - General Family Medicine 03/24/16 02/04/23 documented as of this encounter
--- OUTSIDE RECORDS SUMMARY | 2024-04-06 13:58 | XMS_ITS | Encounter Summary ---
[place] [address] Care Team Providers Care Offset Assistant Press Operator Name Role Phone Ashley Quirogan Cornelius ANURAG Primary Care Provider [phone] Reason for Visit * Reason Onset Date Comments Medical Care Coordination 07/27/2017 Encounter Details Date Type Department Care Team (Late st Contact Info) Description 07/27/2017 Telephone Hematology [place] [address] Alexandrea Greenwood RN Medical Care Coordination Social [...] 07/27/2017 12:25 PM EST Message received from social secretary: Injection/Infusion Referral Call placed to [facility] @ [phone] Spoke w/ FOUNDRY OPERATOR Services to be provided for pt are: CBC/CMP DONE Q6 MONTHS X2 STARTING NOVEMBER 2017 TECH confirmed they would provide services to pt - I CALLED PT, LM. Pt orders faxed to [phone] documented in this encounter Plan of Treatment Upcoming Encounters Date Type Department Care Team (Late st Contact Info) Description 03/01/2025 4:15 PM EDT Office Visit Dermatology at [place] [address] [place] [address] Marek Bonilla MD [address] [facility] [address], [place] [address] documented as of this encounter Visit Diagnoses Not on filedocumented in this encounter Care Teams Offset Assistant Press Operator Relationship Specialty Start Date End Date Deborah Quiroga APRN PCP - General Family Medicine 03/24/16 02/04/23 documented as of this encounter
--- OUTSIDE RECORDS SUMMARY | 2024-04-06 13:58 | XMS_ITS | Encounter Summary ---
[place] [address] Care Team Providers Care Predatory Animal Hunter Name Role Phone Deborah Quiroga APRN Primary Care Provider [phone] Encounter Details Date Type Department Care Team (Late st Contact Info) Description 06/05/2021 Interpretation Only [address] [address] Deborah Quiroga HIGH DENSITY PRESS LABORER [address] [address] Social History Tobacco Use Types Packs/Day Years [...] PM EDT Office Visit Dermatology at [place] [address] [facility] [place] [address] Marek Bonilla MD [address] [facility], [place] [address] documented as of this encounter Procedures Procedure Name Priority Date/Time Associated Diagnosis Comments MAMMO SCREENING CAD AND CATRACHITO BILATERAL Routine 06/05/2021 11:42 AM EDT documented in this encounter Results * Mammo Screening Cad and Catrachito Bilateral (06/05/2021 11:42 AM EDT) PT CLASS O DH RAD ADMITDTTM DH RAD PT DH RAD INFO [id number]^EVERET T^DEBORAH^E DH RAD EXAM DESC MADDSCTO^BREAST SCREEN [...] who have questions please contact the health critical care nurse that requested your imaging first. ? Electronically signed by: Rocael Villatoro MD, [facility] ([phone]), at 06/05/2021 1:27 PM Narrative 06/05/2021 1:27 [...] patients who have questions please contactthe health critical care nurse that requested your imaging first. Electronically signed by: Rocael Villatoro MD, [facility]([phone]), at 06/05/2021 1:27 PM Deborah Quiroga APRN IMG MAMMO ORDERABLE S documented in this encounter Visit Diagnoses Not on filedocumented in this encounter Care Teams Predatory Animal Hunter Relationship Specialty Start Date End Date Deborah Quiroga APRN PCP - General Family Medicine 03/24/16 02/04/23 documented as of this encounter
--- OUTSIDE RECORDS SUMMARY | 2024-04-06 13:59 | XMS_ITS | Encounter Summary ---
[place] [address] Care Team Providers Care Electrogalvanizing Machine Operator Name Role Phone Junaid, Deborah Shields APRN Primary Care Provider [phone] Reason for Visit * Auth/Cert Specialty Diagnoses / Procedures Referred By Crispin t Referred To Contact Diagnoses Aortic stenosis Procedures PRO REPLACE AORT VALV, PROSTH VALV @REPLACE AORTIC VALVE, OPEN, W\CPB, W\PROSTHETIC VALVE (WRVU 41.32) Referral ID Status Reason Start Date Expiration Date Visits Re quested Visits Authorized [id number] 1 1 Encounter Details Date Type Department Care Team (Late st Contact Info) Description 09/21/2016 7:25 AM EST Anesthesia [place] [address] Luis Enrique Quarles MD [facility] [place] [address] Henrik Cooper MD [facility] [place] [address] Anesthesia Record Procedure Summary Procedure Name Responsible [...] 0819 Sternotomy 0844 CV Bypass init 1009 Call Center Dispatcher 1014 An Clamp Remove 1031 CP Bypass [...] Tube 09/21/16 (#28 angled chest tube to [place]: left: pericardial); Left; 09/22/16; 1119 09/21/16 0000 by Toshia Alejandre RN 09/22/16 1119 by Vero Bonilla RN Chest Tube 09/21/16 (#28 straig ht chest tube to [place]; right: mediastinal'); Right; mediastinum; 09/22/16; 1118 09/21/16 0000 by Toshia Alejandre RN 09/22/16 1118 by Vero Bonilla RN (RETIRED) Peripheral IV Line - Single Lumen 09/21/16; 0648; metacarpal vein (top of hand), left; [id number]-[id number]-[id number] catheter system; 20 gauge; valdo Arteaga; 09/23/16; [...] Cooper MD - 09/21/2016 6:50 PM EST [facility] [place] of Anesthesiology Post-procedure Note Patient: Purnima Thacker Procedure Summary Date Anesthesia Start Anesthesia Stop Room / Location 09/21/16 07 1152 [facility] OR 16 / [facility] MAIN OR Procedure Diagnosis Surgeon Responsible Provider @REPLACE AORTIC VALVE, OPEN, W\CPB, W\PROSTHETIC VALVE (WRVU 41.32) (N/A Chest); @AORTOPLASTY FOR SUPRAVALVULAR STENOSIS (WRVU 29.33) (N/A Chest) () Alirio Francisco MD Clark, Jeffrey A, MD All Anesthesia Providers: Anesthesiologist: Luis Enrique Quarles MD Final Armature Tester: Henrik Cooper MD Last (1hr) Vitals: BP Temp 36.1 ??C (97 ??F) (09/21/16 1800) Pulse 79 (09/21/16 1800) Resp 11 (09/21/16 1800) SpO2 98 % (09/21/16 1800) Patient Location: [facility] Level of Consciousness: Sedated (Pharmacologic/Intentional) Pain Management: [...] ASA 3 general, with a(n) intravenous induction Purinma Thacker is a 61 y/o 97.5kg female [...] 4:15 PM EDT Office Visit Dermatology at [place] [address] [facility] [place] [address] Marek Bonilla MD [address] [place] [address] RD, [place] [address] documented as of this encounter Visit Diagnoses [...] mg documented in this encounter Care Teams Electrogalvanizing Machine Operator Relationship Specialty Start Date End Date Deborah Quiroga, SCOW CAPTAIN PCP - General Family Medicine 03/24/16 02/04/23 documented as of this encounter
--- OUTSIDE RECORDS SUMMARY | 2024-04-06 13:59 | XMS_ITS | Encounter Summary ---
[place] [address] Care Team Providers Care Bike Technician Name Role Phone Deborah Quiroga APRN Primary Care Provider [phone] Encounter Details Date Type Department Care Team (Late st Contact Info) Description 09/17/2016 External Results Hematology [place] [address] Alexandrea Greenwood RN Neutropenia, unspecified type Social [...] 4:15 PM EDT Office Visit Dermatology at [place] [address] [facility] [place] [address] Marek Bonilla MD [address] [facility] [address], [place] [address] documented as of this encounter Procedures Procedure [...] type documented in this encounter Care Teams Bike Technician Relationship Specialty Start Date End Date Deborah Quiroga, ENTRY ANALYST PCP - General Family Medicine 03/24/16 02/04/23 documented as of this encounter
--- OUTSIDE RECORDS SUMMARY | 2024-04-06 13:59 | XMS_ITS | Encounter Summary ---
[place] [address] Care Team Providers Care Apparel Sales Leader Name Role Phone Ashley Quirogan Cornelius ANURAG Primary Care Provider [phone] Reason for Visit * Reason Onset Date Comments Medical Care Coordination 09/14/2016 Encounter Details Date Type Department Care Team (Late st Contact Info) Description 09/14/2016 Telephone Hematology [place] [address] Alexandrea Greenwood RN Medical Care Coordination Social [...] 9:10 AM EST Message received from secretary board of commissioners: Injection/Infusion Referral Call placed to [facility] Infusion Room Spoke charis Bragg. Services to be provided for pt are: Miles 09/16/16 [facility] confirmed they would provide services to pt and would contact with appointment time. Pt aware to expect the phone call ??orders faxed to [phone]). documented in this encounter Plan of Treatment Upcoming Encounters Date Type Department Care Team (Late st Contact Info) Description 03/01/2025 4:15 PM EDT Office Visit Dermatology at [place] [address] [facility] [address] [place] [address] Marek Bonilla MD [address] [facility] [address], [place] [address] documented as of this encounter Visit Diagnoses Not on filedocumented in this encounter Care Teams Apparel Sales Leader Relationship Specialty Start Date End Date Deborah Quiroga APRN PCP - General Family Medicine 03/24/16 02/04/23 documented as of this encounter
--- OUTSIDE RECORDS SUMMARY | 2024-04-06 13:59 | XMS_ITS | Encounter Summary ---
[place] [address] Care Team Providers Care Health Unit Clerk Name Role Phone Ashley Quirogazac Shields APRN Primary Care Provider [phone] Reason for Visit * Auth/Cert Specialty Diagnoses / Procedures Referred By Crispin t Referred To Contact Diagnoses Aortic stenosis Procedures PRO REPLACE AORT VALV, PROSTH VALV @REPLACE AORTIC VALVE, OPEN, W\CPB, W\PROSTHETIC VALVE (WRVU 41.32) Referral ID Status Reason Start Date Expiration Date Visits Re quested Visits Authorized [id number] 1 1 Encounter Details Date Type Department Care Team (Late st Contact Info) Description 09/21/2016 7:30 AM EST - 09/21/2016 12:04 PM EST Surgery [place] [address] Alirio Esparza MD @REPLACE AORTIC VALVE, OPEN, [...] Patient Age: 61 y.o. Birthdate: 1955 Language: Tongan Race: White Ethnicity: Not nor Admit Date: 09/21/2016 Discharge Date: 09/25/2016 Attending Physician: Alirio Esparza MD Follow-up Recommendations for Providers: Please continue routine management of cardiovascular risk factors including blood pressure, lipids,glucose, etc. Please note any changes to medications. Patient to follow-up with PCP, Deborah Quiroga APRN, in 1-2 weeks. Patient to follow-up with Shop Mechanic, Dr. Antelmo Burrell, in two weeks. Patient to follow-up with Cardiac Surgery, Dr. Alirio Esparza, to be scheduled for before 10/19/2016, with CXR, EKG, and Echo. Inpatient Provider Contact Information: [facility] Section of Cardiac Surgery [facility] [address] FAX [phone] Discharge Diagnoses (Hospital Problems) Primary Diagnoses: Secondary [...] performed by Alirio Esparza MD at [facility] MAIN OR ??? Pro aortoplas for supravalv sten N/A 09/21/2016 @AORTOPLASTY FOR SUPRAVALVULAR STENOSIS (WRVU 29.33) performed by Alirio Esparza MD at [facility] MAIN OR Prior To Admission Medications [...] Hospital Course: Purnima Thacker was admitted to [facility] on 09/21/2016 via the Same Day Program. [...] Alirio Esparza and/or the Cardiac Surgery Physician Can Operator Team may be reached at . Antibiotic prophylaxis: You will need to take antibiotics prior to many invasive tests and treatments, such as dental cleaning, which should be done every 6 months. Your primary care physician or your dentist can prescribe this medication. Please refer to the card with the [place] [employer] Guidelines for more information. You have been provided with 3 copies of this card. Keep one for your self. Give one to your primary care physician and one to your dentist. Please refer to the [place] [employer] Guidelines for more information. Good [...] Dr. Alirio Jones. You may use a Finley Track or treadmill but avoid any pulling [...] friends, go to a movie, go to lutheran, etc. Heavy activities: No hunting, skiing, jogging, [...] should resume a low fat, low cholesterol, [place] [employer] Diet. Driving: No driving until [...] the outpatient Phase 2 Cardiac Rehabilitation at [facility]. The patient agrees to a referral to this program. The referral will be sent at discharge and the patient should be contacted by the program within 1- 2 weeks from discharge. Future Appointments and Orders Future Appointments Provider Department Dept Phone 11/20/2016 11:30 AM Markel Borjas MD [facility] [phone] Future Orders Complete By Expires Echocardiogram Transthoracic([facility]) [QUQ294 Custom] 10/18/2016 (Approximate) 09/18/2017 Process Instructions: If the Echocardiogram is to be PERFORMED in a DH location other than [place]--STOP and order [id number], Echocardiogram South/External. Scheduling Instructions: Questions: Is a Bubble Study requested?: No Does the patient have Congenital Heart Disease?: No Does patient require sedation?: None GA rationale: Should this service be billed to the research sponsor?: EKG 12 Lead [EKG1 Custom] 10/18/2016 (Approximate) 09/25/2017 Process Instructions: Scheduling Instructions: Questions: Which DH location will this be performed?: [place] Is a rhythm strip needed?: No If EKG Reason is Pre-op Evaluation, indicate diagnosis for surgery.: Should this service be billed to the research sponsor?: XR Chest PA & Lateral (Generic) [[id number] Custom] 10/18/2016 (Approximate) 09/25/2017 Process Instructions: Scheduling Instructions: Questions: Where will study be performed?: [facility]- Radiology Portable exam?: No Reason for exam and clinical history: s/p AVReplacement, patch annuloplasty 1 month f/u Other pertinent information: Stat read required?: Date of injury if applicable: Requested Time: Referral to Cardiac Rehab [EJV728 Custom] As directed Process Instructions: If no progress note charted, please enter Clinical details in comments. Scheduling Instructions: Questions: My question or request is: s/p AVR. Cardiac rehab at [facility] Referral to Home Health - at DISCHARGE [TXE2356 CPT(R)] As directed Process Instructions: Scheduling Instructions: Comments: DOCUMENTATION FOR VNA SERVICES (INCLUDING THOSE PATIENTS WITH MEDICARE COVERAGE REQUIRING HOME VNA SERVICES AND/OR HOSPICE SERVICES) PATIENT'S LOCATION: Purnimakary Galleg[address] [address] (home) No relevant phone numbers on file. Floor Covering Printer Assistant's Name: self In discussion with the attending physician, it is certified that this patient is under their care and that they, or a Nurse Practitioner, or Physician Can Operator who is working directly with them, [...] for services as follows: HOME HEALTH AGENCY: [facility] PHONE: [phone] FAX: [phone] RN orders: Cardiopulmonary assessment, incisional assessment, assess [...] issues please call the Cardiac SurgeryOffice at [phone] FOR MEDICARE ONLY: In discussion with the [...] and contact information: [facility] VNA Patient location post discharge: home What services are requested: Registered Nurse Physical Therapy Occupational Therapy Start date: Responsible MD post discharge contact info: Arrangements for VNA/home care: As above. VN RN OR PCP TO PLEASE REMOVE CHEST TUBE SUTURES ON OR AFTER 09/30/16 Signed: Crispin Aranda PA-C 09/25/2016 [facility] Section of Cardiac Surgery [facility] [address] FAX [phone] Date: 09/25/2016 CC: ANURAG Alford Caryn E, APRN [address] [place] [address] documented in this encounter Discharge Instructions * [...] Alirio Esparza and/or the Cardiac Surgery Physician Can Operator Team may be reached at . Antibiotic prophylaxis: You will need to take antibiotics prior to many invasive tests and treatments, such as dental cleaning, which should be done every 6 months. Your primary care physician or your dentist can prescribe this medication. Please refer to the card with the [place] [employer] Guidelines for more information. You have been provided with 3 copies of this card. Keep one for your self. Give one to your primary care physician and one to your dentist. Please refer to the [place] [employer] Guidelines for more information. Good [...] Dr. Alirio Jones. You may use a Finley Track or treadmill but avoid any pulling [...] friends, go to a movie, go to lutheran, etc. Heavy activities: No hunting, skiing, jogging, [...] should resume a low fat, low cholesterol, [place] [employer] Diet. Driving: No driving until [...] the outpatient Phase 2 Cardiac Rehabilitation at [facility]. The patient agrees to a [...] PM EST Cardiac Surgery Progress Note: ID: [id number] S/p AVR, patch aortoplasty POD#2. PMH of [...] Gas) No results found for: PHART, PO2ART, [id number] Assessment/Plan: TPW out this am. (+) BM. [...] Signed: Crispin Aranda PA-C 09/24/2016 Team pager: [phone]; [phone] after 5pm [facility] Section of Cardiac Surgery * Leonor Henson S, WORSTED WINDER - 09/23/2016 10:48 AM EST Cardiac Surgery Progress Note: ID: [id number] s/p AVR, patch aortoplasty POD#2. PMH of [...] Gas) No results found for: PHART, PO2ART, [id number] Assessment/Plan: s/p AVR, patch aortoplasty POD#2. PMH of Neutropenia, HLD, HTN, Depression, obesity, . Transferred from [facility] yesterday and doing well. Pathway. Will [...] Surgeon on rounds. Signed: Leonor Henson APRN [facility] Section of Cardiac Surgery Date: 09/23/2016 * Nico Palacios PA - 09/22/2016 9:56 AM EST Cardiac Surgery Progress Note: ID: [id number] s/p AVR, patch aortoplasty POD#1. PMH of [...] NT, ND, soft. Ext: Moves all extremities. [place], well perfused. Incisions: C/D/I Tubes/Lines/Drains: PIV, leanna, [...] Attending Surgeon on rounds. Signed: EKATERINA KIM [facility] Section of Cardiac Surgery Date: 09/22/2016 * [...] Outcome (s) achieved Date Met: 09/25/16 09/25/16 1492 Coping/Psychosocial Plan Of Care Reviewed With patient [...] health, home with outpatient services Lalitha Cohen [facility] Pager: [phone] Inpatient Physical Therapy Patient status, treatment interventions, and goals discussed with student. I am in agreement with all details and associated flowsheet rows as documented and was present for all aspects of the patient treatment session. Nery Jaramillo, CANDY Pager [phone] Problem: Acute Rehab Services Goal & Intervention Plan Goal: Bed Mobility Goal Stand Alone Therapy Goal Outcome: Ongoing (Interventions Implemented as Appropriate) 09/22/16 1611 09/25/16 0947 Bed Mobility Goal Bed Mobility Goal, Time to Achieve 4 days -- Bed Mobility Goal, Activity Type scoot/bridge;supine to sit/sit to supine -- Bed Mobility Goal, Dongola Level independent -- Bed Mobility Goal, Additional [...] Achieve 4 days -- Gait Training Goal, Dong[place] Level independent -- Gait Training Goal, Distance [...] assist, home with home health Lalitha Cohen [facility] Pager: [phone] Inpatient Physical Therapy Patient status, treatment interventions, and goals discussed with student. I am in agreement with all details and associated flowsheet rows as documented and was present for all aspects of the patient treatment session. Nery Jaramillo, SANDBLASTER GLASS Pager [phone] Problem: Acute Rehab Services Goal & Intervention Plan Goal: Bed Mobility Goal Stand Alone Therapy Goal Outcome: Ongoing (Interventions Implemented as Appropriate) 09/22/16161009/23/161411 Bed Mobility Goal Bed Mobility Goal, Time to Achieve 4 days -- Bed Mobility Goal, Activity Type scoot/bridge;supine to sit/sit to supine -- Bed Mobility Goal, Dong[place] Level independent -- Bed Mobility Goal, Additional [...] Achieve 4 days -- Gait Training Goal, [place] Level independent -- Gait Training Goal, Distance [...] days -- Transfer Training Goal, Activity Type bov-hk-ngqiu/hwhnv-dt-kjl;eth-dr-xyofq/dsmhg-lx-vov -- Transfer Train Goal, [place] Level independent -- Transfer Training Goal, Additional Goal abides sternal precautions -- Transfer Training Goal, Outcome -- goal met * Consult Note - Jana Crenshaw RN - 09/23/2016 9:41 AM EST [facility] CARDIAC REHABILITATION Purnima Thacker was seen today regarding participation in the outpatient Phase 2 Cardiac Rehabilitation at [facility]. The patient agrees to a [...] Another Service: (cardiac rehab) NICOLE HERNANDEZ, PT Pager:[phone] Inpatient Physical Therapy Problem: Acute Rehab Services Goal & Intervention Plan Goal: Bed Mobility Goal Stand Alone Therapy Goal Outcome: Ongoing (Interventions Implemented as Appropriate) 09/22/161610 Bed Mobility Goal Bed Mobility Goal, Time to Achieve 4 days Bed Mobility Goal, Activity Type scoot/bridge;supine to sit/sit to supine Bed Mobility Goal, Dong[place] Level independent Bed Mobility Goal, Additional Goal able to abide sternal precautions during transfers Goal: Gait Training Goal Stand Alone Therapy Goal Outcome: Ongoing (Interventions Implemented as Appropriate) 09/22/161610 Gait Training Goal Gait Training Goal, Date Established 09/22/16 Gait Training Goal, Time to Achieve 4 days Gait Training Goal, Dongola Level independent Gait Training Goal, Distance to Achieve ascend and descends 2 steps independently Goal: Goal Transfer Training Stand Alone Therapy Goal Outcome: Ongoing (Interventions Implemented as Appropriate) 09/22/161610 Goal Transfer Training Transfer Training Goal, Time to Achieve 4 days Transfer Training Goal, Activity Type hqg-qe-ojijh/mywwz-zq-fge;dbv-uf-sljsb/nuuiv-pk-ofx Transfer Train Goal, Dong[place] Level independent Transfer Training Goal, Additional Goal [...] of completing AD's at home, chooses her dvnaoe-mc-ytm, Martha Thacker (home) for her DPOAH, 2nd choice in friend, Nitesh Rad, [place], [place] Current Coping/Education/Information Needs: patient sitting up [...] close by, Rashad & Raymond, and her dgevrf-dn-bpb Martha Thacker who she has chosen to be her DPOAH. Also has a friend Nitesh Leroy who lives in [place], [place], also her DPOAH choice. Behavioral Health History: none on file in e[facility] Substance Use/Abuse: none on file in e[facility] Other Pertinent/Service Specific Information: none Health/Prescription Coverage: Primary Insurance: [employer] Secondary Insurance: none Prescription Coverage: yes, per patient no issues Preferred Pharmacy: ?? Other: none Primary Care Provider: Deborah Quiroga, WORSTED WINDER [phone] Patient/Caregiver Goals of Treatment: per medical team recommendations at discharge for CT surgery Potential Needs for Transition of Care: Rehab/SNF: TBD Home Health: TBD DME: no Dialysis: no Community Resources: non3 Transportation: ride home with a friend Other: none Anticipated Barriers to Discharge/Special Considerations: none anticipated at this time Plan: patient will need VNA services at discharge. The patient/maintenance representative has been provided a list of Home Health Agencies/DME vendors which servetheir preferred geographic area. A letter describing our affiliations was reviewed with them and they were educated about their right to choose where referrals are placed. Patient requests referral to: [facility] [employer]. PHONE: [phone] FAX: [phone] Expected date of discharge: Fri/Sat? CM called VNA to confirm referral, talked with VALDO Bunn/intake who stated she was familiar w/patient & would monitor her progress through curaspan. Referral routed to the Store Leader for matching with agency/vendor and to provide any required information. A member of the Care Management team will continue to monitor progress, follow for continuity of care and assist with transition of care planning. Amanda Moreno RN Pager: [phone] * Op Note - Alirio Esparza MD - 09/21/2016 12:53 PM EST 09/23/2016 Purnima Thacker 1955 [id number] Preoperative Diagnosis: Symptomatic aortic stenosis Postoperative Diagnosis: Symptomatic aortic stenosis Procedure: Aortic valve replacement: Bovine Pericardial 25 mm Surgeon: Alirio Esparza M.D. Can Operator: Philip BALL Anesthesia: General endotracheal anesthesia [...] applied. The patient was transported to the [facility] on levo. All counts were correct. [...] Operative Note Patient Name: Purnima Thacker : [id number] MR#: [id number] Case Date: 09/21/2016 Surgeon: Surgeon(s) and Role: * Alirio Esparza MD - Primary * Nico Palacios PA - Physician Can Operator Preoperative diagnosis: Postoperative diagnosis: Procedure(s) (LRB): [...] 4:15 PM EDT Office Visit Dermatology at [place] [address] [place] [address] Marek Bonilla MD [address], [place] [address] Scheduled Orders Name Type Priority Associated Diagnoses [...] IMPLANTABLE DEVICES SCAN 09/26/2016 12:00 AM EST INTERNATIONAL EXCHANGE COORDINATOR SCAN 09/26/2016 12:00 AM EST POTASSIUM Routine [...] SCAN EXT O RDR/RSLT * SCAN DOC: INTERNATIONAL EXCHANGE COORDINATOR (09/26/2016 12:00 AM EST) Anatomical Region Laterality Modality Other Narrative 09/26/2016 12:00 AM EST Ordered by an unspecified provider. Scanning Provider MEDIA MGR SCAN EXT O RDR/RSLT * Potassium (09/25/2016 4:32 AM EST) Potassium 4.4 3.5 - 5.0 mmol/L [facility] [...] MD CHEMISTRY ORDERABLE S Performing Organization Address [facility] Co de Phone Number [facility] [place] [address] * (ABNORMAL) Differential, Automated (09/24/2016 9:56 AM EST) Neutrophil % 76.8 % [facility] Neutrophil Absolute 7.79(H) 1.70 - 6.10 x10(3)/mc L [facility] Lymph % 11.1 % [facility] Lymphocytes Abs 1.1 0.9 - 3.2 x10(3)/mc L [facility] Monocyte % 8.5 % [facility] Monocyte Abs 0.9 0.3 - 0.9 x10(3)/mc L [facility] Eos % 0.5 % [facility] Eosinophils Abs 0.0 0.0 - 0.4 x10(3)/mc L [facility] Basophil % 0.2 % [facility] Baso Absolute 0.0 0.0 - 0.1 x10(3)/mc L [facility] Immature Gran % 2.90 % [facility] Comment: Immature granulocytes(IG's)percentage and absolute count will include metamyelocytes, myelocytes, and promyelocytes. Blood smears from CBCs yielding IG's will be scanned manually for concordance. If this scan disagrees with the automated IG or if promyelocytes are noted, a manual differential will be performed. Immature Gran Absolute 0.29(H) 0.00 - 0.04 x10(3)/mc L [facility] Blood specimen (specimen) 09/24/2016 9:56 AM EST 09/24/2016 10:04 AM EST Narrative Resulting Agency Comment Spec In Lab Alirio Esparza MD HEMATOLOGY ORDERABL ES Performing Organization Address [facility]/ZIP Co de Phone Number [facility] [place] [address] * (ABNORMAL) Hemogram (09/24/2016 9:56 AM EST) White Blood Cell 10.1(H) 4.0 - 9.5 x10(3)/mc L [facility] Red Blood Cell 2.87(L) 4.00 - 5.21 x10(6)/mc L [facility] Hemoglobin 9.4(L) 11.7 - 15.5 gm/dL [facility] Hematocrit 28.3(L) 35.7 - 45.8 % [facility] Mean Cell Volume 98.6(H) 82.6 - 94.4 fL [facility] Mean Cell Hemoglobin 32.8(H) 27.1 - 32.0 pg [facility] Mean Cell Hemoglobin Concentration 33.2 31.7 - 35.0 gm/dL [facility] Platelet 141(L) 145 - 357 x10(3)/mc L [facility] RDW Standard Deviation 45.0 37.0 - 46.0 [facility] RDW coefficient of variation 12.6 11.5 - 14.1 % [facility] Mean Platelet Volume 9.4 7.6 - 12.9 fL [facility] NRBC% auto 1.1 % [facility] NRBC Absolute 0.110(H) 0.000 - 0.000 x10(3)/mc L [facility] Blood specimen (specimen) 09/24/2016 9:56 AM EST 09/24/2016 10:04 AM EST Narrative Resulting Agency Comment Spec In Lab Alirio Esparza MD HEMATOLOGY ORDERABL ES Performing Organization Address City/[facility]/ZIP Co de Phone Number [facility] [place] [address] * (ABNORMAL) Basic Metabolic Panel (non-fasting) (09/24/2016 9:56 AM EST) Glucose 111 65 - 199 mg/dL [facility] Comment:Diabetes: >=200 mg/d L plus symptoms Blood Urea Nitrogen 23(H) 8 - 18 mg/dL [facility] Comment:result rechecked-ART Creatinine 0.89 0.70 - 1.20 mg/dL [facility] Comment: Please note that the pediatric reference intervals supplied above were not validated at [facility]. Results from pediatric patients should be interpreted in conjunction to the patient's age, height and muscle mass. Sodium 138 135 - 145 mmol/L [facility] Potassium 4.2 3.5 - 5.0 mmol/L [facility] Comment: Please note: ??Patients with WBC >100,000 may have falsely elevated Potassium levels. ??For accurate Potassium quantification in these patients send serum separator tube (gold top) for subsequent determinations. ??Contact the Clinical Chemistry Laboratory if there are any questions. Chloride 98 98 - 107 mmol/L [facility] Carbon Dioxide 26 22 - 31 mmol/L [facility] Anion Gap 14 5 - 15 mmol/L [facility] Calcium 9.1 8.5 - 10.5 mg/dL [facility] Est Glomerular Filtration [...] the following links into your internet browser. [email or web address] Blood specimen (specimen) 09/24/2016 9:56 AM EST 09/24/2016 10:04 AM EST Narrative Resulting Agency Comment Spec In Lab Alirio Esparza MD CHEMISTRY ORDERABLE S [facility] [place] [address] * XR Chest PA & Lateral (Generic) [...] EST) Potassium 4.5 3.5 - 5.0 mmol/L [facility] [...] MD CHEMISTRY ORDERABLE S Performing Organization Address [facility]/ZIP Co de Phone Number [facility] [place] [address] * POCT Glucose (09/22/2016 8:17 AM EST) Glucose, POC 131 65 - 199 mg/dL [facility] Comment: Supplemental ranges: <140 mg/dL before meals <180 mg/dL all other times of the day Blood specimen (specimen) 09/22/2016 8:17 AM EST 09/22/2016 8:17 AM EST Alirio Esparza MD POINT OF CARE TEST ORDERABLES Performing Organization Address [facility] Co de Phone Number [facility] [place] [address] * POCT Glucose (09/22/2016 4:01 AM EST) Glucose, POC 135 65 - 199 mg/dL [facility] Comment: Supplemental ranges: <140 mg/dL before meals <180 mg/dL all other times of the day Blood specimen (specimen) 09/22/2016 4:01 AM EST 09/22/2016 4:01 AM EST Alirio Esparza MD POINT OF CARE TEST ORDERABLES Performing Organization Address [facility] Co de Phone Number [facility] [place] [address] * Scan, Peripheral Blood (09/22/2016 4:00 AM EST) Plat estimate Normal [facility] RBC Morphology Abnormal [facility] Macrocyte 1-5 /HPF [facility] Plat, Giant Less than 1 /HPF [facility] Blood specimen (specimen) 09/22/2016 4:00 AM EST 09/22/2016 4:34 AM EST Narrative Resulting Agency Comment Spec In Lab Alirio Esparza MD HEMATOLOGY ORDERABL ES Performing Organization Address [facility]/ZIP Co de Phone Number [facility] [place] [address] * Electrolytes panel (09/22/2016 4:00 AM EST) Pathologist [facility] Sodium 145 135 - 145 mmol/L [facility] Potassium 4.4 3.5 - 5.0 mmol/L [facility] Comment: Please note: ??Patients with WBC >100,000 may have falsely elevated Potassium levels. ??For accurate Potassium quantification in these patients send serum separator tube (gold top) for subsequent determinations. ??Contact the Clinical Chemistry Laboratory if there are any questions. Chloride 107 98 - 107 mmol/L [facility] Carbon Dioxide 24 22 - 31 mmol/L [facility] Anion Gap 14 5 - 15 mmol/L [facility] Blood specimen (specimen) Venous Draw / Unknown 09/22/2016 4:00 AM EST 09/22/2016 4:34 AM EST Narrative Resulting Agency Comment Spec In Lab Alirio Esparza MD CHEMISTRY ORDERABLE S Performing Organization Address [facility]/ZIP Co de Phone Number [facility] [place] [address] * (ABNORMAL) Differential, Automated (09/22/2016 4:00 AM EST) Pathologist [facility] Neutrophil % 70.9 % [facility] Neutrophil Absolute 5.33 1.70 - 6.10 x10(3)/mc L [facility] Lymph % 9.1 % [facility] Lymphocytes Abs 0.7(L) 0.9 - 3.2 x10(3)/mc L [facility] Monocyte % 18.0 % [facility] Monocyte Abs 1.4(H) 0.3 - 0.9 x10(3)/mc L [facility] Eos % 0.0 % [facility] Eosinophils Abs 0.0 0.0 - 0.4 x10(3)/ L [facility] Basophil % 0.1 % [facility] Baso Absolute 0.0 0.0 - 0.1 x10(3)/ L [facility] Immature Gran % 1.90 % [facility] Comment: Immature granulocytes(IG's)percentage and absolute count will include metamyelocytes, myelocytes, and promyelocytes. Blood smears from CBCs yielding IG's will be scanned manually for concordance. If this scan disagrees with the automated IG or if promyelocytes are noted, a manual differential will be performed. Immature Gran Absolute 0.14(H) 0.00 - 0.04 x10(3)/[facility] Blood specimen (specimen) 09/22/2016 4:00 AM EST 09/22/2016 4:34 AM EST Narrative Resulting Agency Comment Spec In Lab Alirio Esparza MD HEMATOLOGY ORDERABL ES Performing Organization Address City/State/[facility] Co de Phone Number [facility] [place] [phone] * (ABNORMAL) Hemogram (09/22/2016 4:00 AM EST) White Blood Cell 7.5 4.0 - 9.5 x10(3)/ L [facility] Red Blood Cell 2.93(L) 4.00 - 5.21 x10(6)/ L [facility] Hemoglobin 9.2(L) 11.7 - 15.5 gm/dL [facility] Hematocrit 28.0(L) 35.7 - 45.8 % [facility] Mean Cell Volume 95.6(H) 82.6 - 94.4 fL [facility] Mean Cell Hemoglobin 31.4 27.1 - 32.0 pg [facility] Mean Cell Hemoglobin Concentration 32.9 31.7 - 35.0 gm/dL [facility] Platelet 161 145 - 357 x10(3)/ L [facility] RDW Standard Deviation 44.0 37.0 - 46.0 fL [facility] RDW coefficient of variation 12.6 11.5 - 14.1 % [facility] Mean Platelet Volume 9.3 7.6 - 12.9 fL [facility] NRBC% auto 0.3 % [facility] NRBC Absolute 0.020(H) 0.000 - 0.000 x10(3)/mc L [facility] Blood specimen (specimen) 09/22/2016 4:00 AM EST 09/22/2016 4:34 AM EST Narrative Resulting Agency Comment Spec In Lab Alirio Esparza MD HEMATOLOGY ORDERABL ES [facility] [place] [phone] * (ABNORMAL) Cardiac Enzymes (09/22/2016 4:00 AM EST) Troponin-T 0.13(H) <=0.03 ng/mL [facility] Comment: 0.03 ng/mL: Represents the 99th percentile upper reference limit for normals. >0.03 ng/mL: Elevated cardiac troponin T level indicative of myocardial damage. Diagnosis of acute, evolving or recent RI requires a typical rise and gradual fall [...] consensus document of the Joint Society of Cardiology/[place] College [employer] Committee for the redefinition of myocardial infarction. ??Journal of the [place] College [employer] 2000; 36: 959-969] Creatine Kinase 338(H) 0 - 160 unit/L [facility] Blood specimen (specimen) 09/22/2016 4:00 AM EST 09/22/2016 4:34 AM EST Narrative Resulting Agency Comment Spec In Lab Alirio Esparza MD CHEMISTRY ORDERABLE S Performing Organization Address [facility] Co de Phone Number [facility] [place] [address] * (ABNORMAL) Glucose, fasting (09/22/2016 4:00 AM EST) Glucose Fasting 137(H) 65 - 99 mg/dL [facility] Comment: ?Fasting* Glucose Interpretive Criteria [...] of Diabetes Mellitus, Position Statement from the [place] Diabetes Association. ??Diabetes Care, Volume 33, Supplement 1, Aug 2009 Blood specimen (specimen) 09/22/2016 4:00 AM EST 09/22/2016 4:34 AM EST Narrative Resulting Agency Comment Spec In Lab Alirio Esparza MD CHEMISTRY ORDERABLE S Performing Organization Address [facility] Co de Phone Number [facility] [place] [address] * (ABNORMAL) Creatinine (09/22/2016 4:00 AM EST) Creatinine 0.69(L) 0.70 - 1.20 mg/dL [facility] Comment: Please note that the pediatric reference intervals supplied above were not validated at [facility]. Results from pediatric patients should [...] the following links into your internet browser. [email or web address] Blood specimen (specimen) 09/22/2016 4:00 AM EST 09/22/2016 4:34 AM EST Narrative Resulting Agency Comment Spec In Lab Alirio Esparza MD CHEMISTRY ORDERABLE S Performing Organization Address [facility] Co de Phone Number [facility] [place] [address] * BUN (09/22/2016 4:00 AM EST) Blood Urea Nitrogen 10 8 - 18 mg/dL [facility] Blood specimen (specimen) 09/22/2016 4:00 AM EST 09/22/2016 4:34 AM EST Narrative Resulting Agency Comment Spec In Lab Alirio Esparza MD CHEMISTRY ORDERABLE S Performing Organization Address [facility] Co de Phone Number [facility] [place] [address] * POCT Glucose (09/21/2016 9:59 PM EST) Glucose, POC 146 65 - 199 mg/dL [facility] Comment: Supplemental ranges: <140 mg/dL before meals <180 mg/dL all other times of the day Blood specimen (specimen) 09/21/2016 9:59 PM EST 09/21/2016 9:59 PM EST Alirio Esparza MD POINT OF CARE TEST ORDERABLES Performing Organization Address City/[facility] Co de Phone Number [facility] [place] [address] * POCT Glucose (09/21/2016 7:26 PM EST) [facility] Glucose, POC 152 65 - 199 mg/dL [facility] Comment: Supplemental ranges: <140 mg/dL before meals <180 mg/dL all other times of the day Blood specimen (specimen) 09/21/2016 7:26 PM EST 09/21/2016 7:26 PM EST Alirio Esparza MD POINT OF CARE TEST ORDERABLES [facility] [place] [address] * POCT Glucose (09/21/2016 6:00 PM EST) [facility] Glucose, POC 146 65 - 199 mg/dL [facility] Comment: Supplemental ranges: <140 mg/dL before meals <180 mg/dL all other times of the day Blood specimen (specimen) 09/21/2016 6:00 PM EST 09/21/2016 6:00 PM EST Alirio Esparza MD POINT OF CARE TEST ORDERABLES [facility] [place] [address] * (ABNORMAL) BLOOD GAS 2 ARTERIAL (09/21/2016 4:42 PM EST) [facility] pH, Arterial 7.35(L) 7.35 - 7.45 [facility] PCO2, Arterial 48(H) 35 - 45 mmHg [facility] PO2, Arterial 108(H) 85 - 104 mmHg [facility] Bicarbonate, Arterial 26.0 20.0 - 26.0 mmol/L [facility] Base Excess, Arterial 0.5 -3.0 - 3.0 mmol/L [facility] Hgb Blood Gas 10.4(L) 11.7 - 15.5 gm/dL [facility] Oxyhemoglobin, Arterial 96.2 94.0 - 97.0 % [facility] Carboxyhemoglob in, Arterial 0.0 % [facility] Comment: Nonsmokers: 0.5-1.5% COHB Smokers: Variable, but usually less than 10% Toxic: 20-30% COHB Lethal: Greater than 60% COHB Methemoglobin, Arterial 0.7 <=1.5 % [facility] Na Whole Blood 139 135 - 145 mmol/L [facility] Whole Blood 106 98 - 107 mmol/L [facility] Gluc Whole Bld 147 65 - 199 mg/dL [facility] Comment:Diabetes: >=200 mg/d L plus symptoms. Lactate WB 1.2 0.5 - 2.2 mmol/L [facility] FIO2 Art 40 % [facility] PF Ratio Art [address] [facility] Blood specimen (specimen) 09/21/2016 4:42 PM EST 09/21/2016 4:42 PM EST Alirio Esparza MD POINT OF CARE TEST ORDERABLES [facility] [place] [address] * POCT Glucose (09/21/2016 4:07 PM EST) Glucose, POC 150 65 - 199 mg/dL [facility] Comment: Supplemental ranges: <140 mg/dL before meals <180 mg/dL all other times of the day Blood specimen (specimen) 09/21/2016 4:07 PM EST 09/21/2016 4:07 PM EST Alirio Esparza MD POINT OF CARE TEST ORDERABLES Performing Organization Address [facility] Co de Phone Number [facility] [place] [address] * (ABNORMAL) Hemoglobin (09/21/2016 4:05 PM EST) Hemoglobin 9.9(L) 11.7 - 15.5 gm/dL [facility] Blood specimen (specimen) 09/21/2016 4:05 PM EST 09/21/2016 4:20 PM EST Narrative Resulting Agency Comment Spec In Lab Alirio Esparza MD HEMATOLOGY ORDERABL ES Performing Organization Address [facility] Co de Phone Number [facility] [place] [address] * Potassium (09/21/2016 4:05 PM EST) [facility] Potassium 4.6 3.5 - 5.0 mmol/L [facility] [...] MD CHEMISTRY ORDERABLE S Performing Organization Address [facility] Co de Phone Number [facility] [place] [address] * POCT Glucose (09/21/2016 2:52 PM EST) Glucose, POC 117 65 - 199 mg/dL [facility] Comment: Supplemental ranges: <140 mg/dL before meals <180 mg/dL all other times of the day Blood specimen (specimen) 09/21/2016 2:52 PM EST 09/21/2016 2:52 PM EST Alirio Esparza MD POINT OF CARE TEST ORDERABLES Performing Organization Address [facility] Co de Phone Number [facility] [place] [address] * POCT Glucose (09/21/2016 1:51 PM EST) Glucose, POC 108 65 - 199 mg/dL [facility] Comment: Supplemental ranges: <140 mg/dL before meals <180 mg/dL all other times of the day Blood specimen (specimen) 09/21/2016 1:51 PM EST 09/21/2016 1:51 PM EST Alirio Esparza MD POINT OF CARE TEST ORDERABLES Performing Organization Address [facility] de Phone Number [facility] [place] [address] * POCT Glucose (09/21/2016 12:54 PM EST) Glucose, POC 128 65 - 199 mg/dL [facility] Comment: Supplemental ranges: <140 mg/dL before meals <180 mg/dL all other times of the day Blood specimen (specimen) 09/21/2016 12:54 PM EST 09/21/2016 12:54 PM EST Alirio Esparza MD POINT OF CARE TEST ORDERABLES Performing Organization Address [facility] Co de Phone Number [facility] [place] [address] * EKG 12 Lead (09/21/2016 12:26 PM EST) Ventricular rate 87 BPM MUSE SYSTEM Atrial Rate 87 BPM MUSE SYSTEM P-R Interval 256 ms MUSE SYSTEM QRS Duration 90 ms MUSE SYSTEM Q-T Interval 406 ms MUSE SYSTEM QTC Calculated (Bezet) 488 ms MUSE SYSTEM Calculated P [place] 24 degrees MUSE SYSTEM Calculated R [place] 21 degrees MUSE SYSTEM Calculated T [place] -5 degrees MUSE SYSTEM INTERPRETATION Sinus rhythm with 1st degree A-V block Nonspecific T wave abnormality Prolonged QT Abnormal ECG When compared with ECG of 19-MAY-2016 11:43, [place] interval has increased T wave inversion now [...] course of the esophagus and below the [id number]. There is a right IJ PA catheter [...] the course of theesophagus and below the [id number]. There is a right IJ PA catheter [...] EST) pH, Arterial 7.41 7.35 - 7.45 [facility] PCO2, Arterial 42 35 - 45 mmHg [facility] PO2, Arterial 356(H) 85 - 104 mmHg [facility] Bicarbonate, Arterial 26.2(H) 20.0 - 26.0 mmol/L [facility] Base Excess, Arterial 1.6 -3.0 - 3.0 mmol/L [facility] Hgb Blood Gas 10.7(L) 11.7 - 15.5 gm/dL [facility] Oxyhemoglobin, Arterial 98.1(H) 94.0 - 97.0 % [facility] Carboxyhemoglob in, Arterial 0.3 % [facility] Comment: Nonsmokers: 0.5-1.5% COHB Smokers: Variable, but usually less than 10% Toxic: 20-30% COHB Lethal: Greater than 60% COHB Methemoglobin, Arterial 0.8 <=1.5 % [facility] Na Whole Blood 140 135 - 145 mmol/L [facility] K Whole Blood 3.8 3.5 - 5.0 mmol/L [facility] Comment: Please note: Patients with WBC >100,000 may have falsely elevated Potassium levels. Contact the Clinical Chemistry Laboratory if there are any questions. ICa Whole Blood 1.15(L) 1.15 - 1.33 mmol/L [facility] Comment: Note: ??Total bilirubin higher than 20 mg/dL may lead to falsely low ionized calcium. CL Whole Blood 106 98 - 107 mmol/L [facility] Gluc Whole Bld 135 65 - 199 mg/dL [facility] Comment:Diabetes: >=200 mg/d L plus symptoms. Lactate WB 2.2 0.5 - 2.2 mmol/L [facility] FIO2 Art 100 % [facility] PF Ratio Art [address] [facility] Blood specimen (specimen) 09/21/2016 12:20 PM EST 09/21/2016 12:20 PM EST Aliiro Esparza MD POINT OF CARE TEST ORDERABLES Performing Organization Address City/State/[facility] Co de Phone Number [facility] [place] [address] * (ABNORMAL) BLOOD GAS 2 ARTERIAL (09/21/2016 10:54 AM EST) pH, Arterial 7.43 7.35 - 7.45 [facility] PCO2, Arterial 40 35 - 45 mmHg [facility] PO2, Arterial 297(H) 85 - 104 mmHg [facility] Bicarbonate, Arterial 26.0 20.0 - 26.0 mmol/L [facility] Base Excess, Arterial 1.6 -3.0 - 3.0 mmol/L [facility] Hgb Blood Gas 8.6(L) 11.7 - 15.5 gm/dL [facility] Oxyhemoglobin, Arterial 98.6(H) 94.0 - 97.0 % [facility] Carboxyhemoglob in, Arterial 0.5 % [facility] Comment: Nonsmokers: 0.5-1.5% COHB Smokers: Variable, but usually less than 10% Toxic: 20-30% COHB Lethal: Greater than 60% COHB Methemoglobin, Arterial 0.3 <=1.5 % [facility] Na Whole Blood 134(L) 135 - 145 mmol/L [facility] K Whole Blood 4.5 3.5 - 5.0 mmol/L [facility] Comment: Please note: Patients with WBC >100,000 may have falsely elevated Potassium levels. Contact the Clinical Chemistry Laboratory if there are any questions. ICa Whole Blood 1.16 1.15 - 1.33 mmol/L [facility] Comment: Note: ??Total bilirubin higher than 20 mg/dL may lead to falsely low ionized calcium. CL Whole Blood 104 98 - 107 mmol/L [facility] Gluc Whole Bld 240(H) 65 - 199 mg/dL [facility] Comment:Diabetes: >=200 mg/d L plus symptoms. Lactate WB 2.4(H) 0.5 - 2.2 mmol/L [facility] FIO2 Art 95 % [facility] Flow Art 0.7 LPM [facility] PF Ratio Art [address] [facility] Temp Art 36.7 Celsius [facility] Blood specimen (specimen) 09/21/2016 10:54 AM EST 09/21/2016 10:54 AM EST Alirio Esparza MD POINT OF CARE TEST ORDERABLES Performing Organization Address [facility] Co de Phone Number [facility] [place] [address] * Thrombin time (09/21/2016 10:50 AM EST) Thrombin Time 19 15 - 20 sec [facility] Comment: A prolongation in the [...] MD HEMATOLOGY ORDERABLE S Performing Organization Address [facility]/ZIP Co de Phone Number [facility] [place] [address] * Fibrinogen (09/21/2016 10:50 AM EST) Fibrinogen 228 180 - 510 mg/dL [facility] Comment: Called by: JONNATHAN, Read back by: MICHELLE ALEJANDRE_, Date/Time:09/21/16 11:11. A fibrinogen level >100 mg/dL is adequate for hemostasis in most patients without underlying bleeding disorders. Blood specimen (specimen) 09/21/2016 10:50 AM EST 09/21/2016 10:56 AM EST Narrative Resulting Agency Comment Spec In Lab Luis Enrique Quarles MD HEMATOLOGY ORDERABLE S Performing Organization Address [facility] de Phone Number [facility] [address] * APTT (09/21/2016 10:50 AM EST) Partial Thromboplastin Time 32 25 - 35 sec [facility] Comment: The recommended therapeutic range for full dose, unfractionated heparin at [facility] is 80 ? 114 seconds. The use of the anti-Xa (heparin) level rather than the PTT is recommended for monitoring anticoagulation intensity in critically ill patients receiving unfractionated heparin by continuous IV infusion. Blood specimen (specimen) 09/21/2016 10:50 AM EST 09/21/2016 10:56 AM EST Narrative Resulting Agency Comment Spec In Lab Luis Enrique Quarles MD HEMATOLOGY ORDERABLE S Performing Organization Address [facility] de Phone Number [facility] [place] [address] * (ABNORMAL) Prothrombin Time (09/21/2016 10:50 AM EST) Prothrombin Time 18.7(H) 12.0 - 15.0 sec [facility] Comment: An INR <2.0 indicates [...] International Normalization Ratio 1.5(H) 0.9 - 1.1 [facility] Blood specimen (specimen) 09/21/2016 10:50 AM EST 09/21/2016 10:56 AM EST Narrative Resulting Agency Comment Spec In Lab Luis Enrique Quarles MD HEMATOLOGY ORDERABLE S [facility] [place] [address] * (ABNORMAL) Hemogram (09/21/2016 10:50 AM EST) White Blood Cell 14.7(H) 4.0 - 9.5 x10(3)/mc L [facility] Red Blood Cell 2.40(L) 4.00 - 5.21 x10(6)/mc L [facility] Hemoglobin 7.9(L) 11.7 - 15.5 gm/dL [facility] Hematocrit 23.2(L) 35.7 - 45.8 % [facility] Comment: This result has been called to MICHELLE GRIGSBY by ASHU MORENO on 09 21 2016 at 1102, and has been read back. Mean Cell Volume 96.7(H) 82.6 - 94.4 fL [facility] Mean Cell Hemoglobin 32.9(H) 27.1 - 32.0 pg [facility] Mean Cell Hemoglobin Concentration 34.1 31.7 - 35.0 gm/dL [facility] Platelet 117(L) 145 - 357 x10(3)/mc L [facility] RDW Standard Deviation 42.6 37.0 - 46.0 fL [facility] RDW coefficient of variation 12.1 11.5 - 14.1 % [facility] Mean Platelet Volume 9.2 7.6 - 12.9 fL [facility] NRBC% auto 0.1 % [facility] NRBC Absolute 0.020(H) 0.000 - 0.000 x10(3)/mc L [facility] Blood specimen (specimen) 09/21/2016 10:50 AM EST 09/21/2016 10:56 AM EST Narrative Resulting Agency Comment Spec In Lab Luis Enrique Quarles MD HEMATOLOGY ORDERABLE S Performing Organization Address [facility]/[place] [address] * Prepare Platelets, Apheresis (09/21/2016 10:30 AM EST) Pathologist [facility] Dispensed? Yes [facility] Blood specimen (specimen) 09/21/2016 10:30 AM EST 09/21/2016 10:28 AM EST Alirio Esparza MD BLOOD BANK PRODUCT ORDERABLES Performing Organization Address [facility] [place] [address] * (ABNORMAL) BLOOD GAS 2 ARTERIAL (09/21/2016 10:05 AM EST) pH, Arterial 7.33(L) 7.35 - 7.45 [facility] PCO2, Arterial 54(Critic al) 35 - 45 mmHg [facility] Comment:Noted by inspector optical instrument. PO2, Arterial 218(H) 85 - 104 mmHg [facility] Bicarbonate, Arterial 27.9(H) 20.0 - 26.0 mmol/L [facility] Base Excess, Arterial 2.0 -3.0 - 3.0 mmol/L [facility] Hgb Blood Gas 8.6(L) 11.7 - 15.5 gm/dL [facility] Oxyhemoglobin, Arterial 98.4(H) 94.0 - 97.0 % [facility] Carboxyhemoglo bin, Arterial 0.5 % [facility] Comment: Nonsmokers: 0.5-1.5% COHB Smokers: Variable, but usually less than 10% Toxic: 20-30% COHB Lethal: Greater than 60% COHB Methemoglobin, Arterial 0.3 <=1.5 % [facility] Na Whole Blood 129(L) 135 - 145 mmol/L [facility] K Whole Blood 6.2(Criti gabrielle) 3.5 - 5.0 mmol/L [facility] Comment: Noted by inspector optical instrument. Please note: Patients with WBC >100,000 may have falsely elevated Potassium levels. Contact the Clinical Chemistry Laboratory if there are any questions. ICa Whole Blood 0.95(L) 1.15 - 1.33 mmol/L [facility] Comment: Note: ??Total bilirubin higher than 20 mg/dL may lead to falsely low ionized calcium. CL Whole Blood 100 98 - 107 mmol/L [facility] Gluc Whole Bld 289(H) 65 - 199 mg/dL [facility] Comment:Diabetes: >=200 mg/d L plus symptoms. Lactate WB 2.2 0.5 - 2.2 mmol/L [facility] Temp Art 37.0 Celsius [facility] Blood specimen (specimen) 09/21/2016 10:05 AM EST 09/21/2016 10:05 AM EST Alirio Esparza MD POINT OF CARE TEST ORDERABLES [facility] [place] [address] * (ABNORMAL) BLOOD GAS 2 ARTERIAL (09/21/2016 9:44 AM EST) pH, Arterial 7.22(Criti gabrielle) 7.35 - 7.45 [facility] Comment:Noted by inspector optical instrument. PCO2, Arterial 70(Critica l) 35 - 45 mmHg [facility] Comment:Noted by inspector optical instrument. PO2, Arterial 224(H) 85 - 104 mmHg [facility] Bicarbonate, Arterial 27.8(H) 20.0 - 26.0 mmol/L [facility] Base Excess, Arterial 0.0 -3.0 - 3.0 mmol/L [facility] Hgb Blood Gas 8.7(L) 11.7 - 15.5 gm/dL [facility] Oxyhemoglobin, Arterial 98.5(H) 94.0 - 97.0 % [facility] Carboxyhemoglob in, Arterial 0.6 % [facility] Comment: Nonsmokers: 0.5-1.5% COHB Smokers: Variable, but usually less than 10% Toxic: 20-30% COHB Lethal: Greater than 60% COHB Methemoglobin, Arterial 0.3 <=1.5 % [facility] Na Whole Blood 131(L) 135 - 145 mmol/L [facility] K Whole Blood 5.9(H) 3.5 - 5.0 mmol/L [facility] Comment: Please note: Patients with WBC >100,000 may have falsely elevated Potassium levels. Contact the Clinical Chemistry Laboratory if there are any questions. ICa Whole Blood 1.00(L) 1.15 - 1.33 mmol/L [facility] Comment: Note: ??Total bilirubin higher than 20 mg/dL may lead to falsely low ionized calcium. CL Whole Blood 101 98 - 107 mmol/L [facility] Gluc Whole Bld 227(H) 65 - 199 mg/dL [facility] Comment:Diabetes: >=200 mg/d L plus symptoms. Lactate WB 2.1 0.5 - 2.2 mmol/L [facility] Blood specimen (specimen) 09/21/2016 9:44 AM EST 09/21/2016 9:44 AM EST Alirio Esparza MD POINT OF CARE TEST ORDERABLES [facility] [address] * (ABNORMAL) Hemoglobin (09/21/2016 9:42 AM EST) Hemoglobin 7.2(L) 11.7 - 15.5 gm/dL [facility] Blood specimen (specimen) 09/21/2016 9:42 AM EST 09/21/2016 9:51 AM EST Narrative Resulting Agency Comment Spec In Lab Alirio Esparza MD HEMATOLOGY ORDERABL ES [facility] [address] * Platelet count (09/21/2016 9:42 AM EST) Platelet 159 145 - 357 x10(3)/mc L [facility] Immature Plt % 1.6 0.0 - 7.4 % [facility] Comment: Limitation of the Immature Platelet Fraction (IPF)-May be less reliable when the platelet count is less than 12d727/uL due to statistical imprecision. The IPF value [...] in a decreased state of production. References: [employer] The Clinical Value of the Immature Platelet Fraction (IPF) in Cell Recovery Document Number [id number] 12/2010 [employer] The Role of the Immature Platelet Fraction (IPF) in the Differential Diagnosis of Thrombocytopenia, Document [id number] Blood specimen (specimen) 09/21/2016 9:42 AM EST 09/21/2016 9:51 AM EST Narrative Resulting Agency Comment Spec In Lab Alirio Esparza MD HEMATOLOGY ORDERABL ES [facility] [address] * (ABNORMAL) Hematocrit (09/21/2016 9:42 AM EST) Hematocrit 21.6(L) 35.7 - 45.8 % [facility] Comment: This result has been called to MICHELLE ALEJANDRE by Serjio Frazier on 09 21 2016 at 0957, and has been read back. Blood specimen (specimen) 09/21/2016 9:42 AM EST 09/21/2016 9:51 AM EST Narrative Resulting Agency Comment Spec In Lab Alirio Esparza MD HEMATOLOGY ORDERABL ES Performing Organization Address [facility] de Phone Number [facility] [place] [address] * Fibrinogen (09/21/2016 9:42 AM EST) Fibrinogen 219 180 - 510 mg/dL [facility] Comment: Called by: JONNATHAN, Read back by: MICHELLE ALEJANDRE_, Date/Time:09/21/16 10:03_. A fibrinogen level >100 mg/dL is adequate for hemostasis in most patients without underlying bleeding disorders. Blood specimen (specimen) 09/21/2016 9:42 AM EST 09/21/2016 9:51 AM EST Narrative Resulting Agency Comment Spec In Lab Alirio Esparza MD HEMATOLOGY ORDERABL ES Performing Organization Address [facility] de Phone Number [facility] [place] [address] * (ABNORMAL) BLOOD GAS 2 ARTERIAL (09/21/2016 9:10 AM EST) pH, Arterial 7.36 7.35 - 7.45 [facility] PCO2, Arterial 48(H) 35 - 45 mmHg [facility] PO2, Arterial 295(H) 85 - 104 mmHg [facility] Bicarbonate, Arterial 26.0 20.0 - 26.0 mmol/L [facility] Base Excess, Arterial 0.5 -3.0 - 3.0 mmol/L [facility] Hgb Blood Gas 8.0(L) 11.7 - 15.5 gm/dL [facility] Oxyhemoglobin, Arterial 98.3(H) 94.0 - 97.0 % [facility] Carboxyhemoglob in, Arterial 1.0 % [facility] Comment: Nonsmokers: 0.5-1.5% COHB Smokers: Variable, but usually less than 10% Toxic: 20-30% COHB Lethal: Greater than 60% COHB Methemoglobin, Arterial 0.3 <=1.5 % [facility] Na Whole Blood 135 135 - 145 mmol/L [facility] K Whole Blood 5.4(H) 3.5 - 5.0 mmol/L [facility] Comment: Please note: Patients with WBC >100,000 may have falsely elevated Potassium levels. Contact the Clinical Chemistry Laboratory if there are any questions. ICa Whole Blood 0.93(L) 1.15 - 1.33 mmol/L [facility] Comment: Note: ??Total bilirubin higher than 20 mg/dL may lead to falsely low ionized calcium. CL Whole Blood 102 98 - 107 mmol/L [facility] Gluc Whole Bld 195 65 - 199 mg/dL [facility] Comment:Diabetes: >=200 mg/d L plus symptoms. Lactate WB 1.8 0.5 - 2.2 mmol/L [facility] Temp Art 37.0 Celsius [facility] Blood specimen (specimen) 09/21/2016 9:10 AM EST 09/21/2016 9:10 AM EST Alirio Esparza MD POINT OF CARE TEST ORDERABLES Performing Organization Address City/State/[facility] Co de Phone Number [facility] [place] [address] * Surgical Pathology Report (09/21/2016 9:09 AM EST) Final Diagnosis [id number] ?Location: 3T The signing pathologist has (i) [...] ?. (R1) ??ADELITA 09/24/2016 9:32 AM EST [facility] AORTIC STRUCTURE / Unknown 09/21/2016 9:09 AM EST 09/21/2016 9:09 AM EST Alirio Esparza MD PATHOLOGY/CYTOLOGY ORDERABLES Performing Organization Address City/[facility] Co de Phone Number [facility] [place] [address] * Specimen to Pathology (surgical or derm) (09/21/2016 9:09 AM EST) AP Specimen 09/21/2016 9:09 AM EST 09/21/2016 9:09 AM EST Narrative [facility] - 09/21/2016 9:09 AM EST Specimen requisition ordered. ??Separate Pathology report to follow Alirio Esparza MD PATHOLOGY/CYTOLOGY ORDERABLES Performing Organization Address [facility]/ZIP Co de Phone Number [facility] [place] [address] * (ABNORMAL) BLOOD GAS 2 ARTERIAL (09/21/2016 8:50 AM EST) pH, Arterial 7.41 7.35 - 7.45 [facility] PCO2, Arterial 33(L) 35 - 45 mmHg [facility] PO2, Arterial 348(H) 85 - 104 mmHg [facility] Bicarbonate, Arterial 20.6 20.0 - 26.0 mmol/L [facility] Base Excess, Arterial -4.1(L) -3.0 - 3.0 mmol/L [facility] Hgb Blood Gas 9.5(L) 11.7 - 15.5 gm/dL [facility] Oxyhemoglobin, Arterial 98.8(H) 94.0 - 97.0 % [facility] Carboxyhemoglob in, Arterial 0.3 % [facility] Comment: Nonsmokers: 0.5-1.5% COHB Smokers: Variable, but usually less than 10% Toxic: 20-30% COHB Lethal: Greater than 60% COHB Methemoglobin, Arterial 0.3 <=1.5 % [facility] Na Whole Blood 137 135 - 145 mmol/L [facility] K Whole Blood 4.0 3.5 - 5.0 mmol/L [facility] Whole Blood 105 98 - 107 mmol/L [facility] Gluc Whole Bld 93 65 - 199 mg/dL [facility] Comment:Diabetes: >=200 mg/d L plus symptoms. Lactate WB 1.0 0.5 - 2.2 mmol/L [facility] Blood specimen (specimen) 09/21/2016 8:50 AM EST 09/21/2016 8:50 AM EST Alirio Esparza MD POINT OF CARE TEST ORDERABLES [facility] [place] [address] * (ABNORMAL) BLOOD GAS 2 ARTERIAL (09/21/2016 8:18 AM EST) pH, Arterial 7.42 7.35 - 7.45 [facility] PCO2, Arterial 36 35 - 45 mmHg [facility] PO2, Arterial 283(H) 85 - 104 mmHg [facility] Bicarbonate, Arterial 22.8 20.0 - 26.0 mmol/L [facility] Base Excess, Arterial -2.0 -3.0 - 3.0 mmol/L [facility] Hgb Blood Gas 12.6 11.7 - 15.5 gm/dL [facility] Oxyhemoglobin, Arterial 99.0(H) 94.0 - 97.0 % [facility] Carboxyhemoglob in, Arterial 0.6 % [facility] Comment: Nonsmokers: 0.5-1.5% COHB Smokers: Variable, but usually less than 10% Toxic: 20-30% COHB Lethal: Greater than 60% COHB Methemoglobin, Arterial 0.0 <=1.5 % [facility] Na Whole Blood 144 135 - 145 mmol/L [facility] K Whole Blood 4.0 3.5 - 5.0 mmol/L [facility] Comment: Please note: Patients with WBC >100,000 may have falsely elevated Potassium levels. Contact the Clinical Chemistry Laboratory if there are any questions. ICa Whole Blood 1.22 1.15 - 1.33 mmol/L [facility] Comment: Note: ??Total bilirubin higher than 20 mg/dL may lead to falsely low ionized calcium. CL Whole Blood 106 98 - 107 mmol/L [facility] Gluc Whole Bld 102 65 - 199 mg/dL [facility] Comment:Diabetes: >=200 mg/d L plus symptoms. Lactate WB 1.2 0.5 - 2.2 mmol/L [facility] FIO2 Art 95 % [facility] Flow Art 1.1 LPM [facility] PF Ratio Art [address] [facility] Temp Art 35.6 Celsius [facility] Blood specimen (specimen) 09/21/2016 8:18 AM EST 09/21/2016 8:18 AM EST Alirio Esparza MD POINT OF CARE TEST ORDERABLES Performing Organization Address [facility] Co de Phone Number [facility] [place] [address] * Prepare RBC (09/21/2016 7:05 AM EST) Dispensed? Yes [facility] Blood specimen (specimen) 09/21/2016 7:05 AM EST 09/21/2016 7:02 AM EST Alirio Esparza MD BLOOD BANK PRODUCT ORDERABLES Performing Organization Address [facility] Co de Phone Number [facility] [place] [address] * POCT Glucose (09/21/2016 6:42 AM EST) Glucose, POC 104 65 - 199 mg/dL [facility] Comment: Supplemental ranges: <140 mg/dL before meals <180 mg/dL all other times of the day Blood specimen (specimen) 09/21/2016 6:42 AM EST 09/21/2016 6:42 AM EST Alirio Esparza MD POINT OF CARE TEST ORDERABLES Performing Organization Address [facility] de Phone Number [facility] [place] [address] documented in this encounter Visit Diagnoses Not [...] dose on Wed09/21/16 at 1230, Until Discontinued, [place] teeth, Routine Given 09/25/2016 9:40 AM EST [...] Kendall Martínez [facility]) aspirin chewable tablet 81 mg(Linked Group 1) [...] dose on Wed09/21/16 at 1230, Until Discontinued, [place] teeth, Routine 0900 (Not Given - Provider: [...] Routine documented in this encounter Care Teams Health Unit Clerk Relationship Specialty Start Date End Date Deborah Quiroga APRN PCP - General Family Medicine 03/24/16 02/04/23 documented as of this encounter
--- OUTSIDE RECORDS SUMMARY | 2024-04-06 13:59 | XMS_ITS | Encounter Summary ---
Author Organization [facility] [place] [address] Care Team Providers Care Html Web Developer Name Role Phone Ashley Quirogan Cornelius ANURAG Primary Care Provider [phone] Reason for Referral * Consultation (Routine) - Specialty Diagnoses / Procedures Referred By Contact Referred To Contact Cardiac Rehabilitation Diagnoses S/P AVR Alirio Esparza MD [facility] DR CARD[place] [address] Cardiac Rehab, [address] [place] [address] Referral ID Status Reason Start Date Expiration Date V isits Requested Visits Authorized [id number] Consult, Test & Treat 09/25/2016 03/24/2017 36 36 Reason for Visit * Auth/Cert Specialty Diagnoses / Procedures Referred By Contkrystle t Referred To Contact Diagnoses Aortic stenosis Procedures PRO REPLACE AORT VALV, PROSTH VALV @REPLACE AORTIC VALVE, OPEN, W\CPB, W\PROSTHETIC VALVE (WRVU 41.32) Referral ID Status Reason Start Date Expiration Date Visits Re quested Visits Authorized [id number] 1 1 Encounter Details Date Type Department Care Team (Latest Contact Info) Description 09/21/2016 6:08 AM EST - 09/25/2016 4:33 PM EST Hospital Encounter Inter[place] [id number] Alirio Esparza MD Aortic valve stenosis, unspecified [...] Patient Age: 61 y.o. Birthdate: 1955 Language: Lebanese Race: White Ethnicity: Not nor Admit Date: 09/21/2016 Discharge Date: 09/25/2016 Attending Physician: Alirio Esparza MD Follow-up Recommendations for Providers: Please continue routine management of cardiovascular risk factors including blood pressure, lipids,glucose, etc. Please note any changes to medications. Patient to follow-up with PCP, Deborah Quiroga APRN, in 1-2 weeks. Patient to follow-up with Director Executive Communications, Dr. Antelmo Burrell, in two weeks. Patient to follow-up with Cardiac Surgery, Dr. Alirio Esparza, to be scheduled for before 10/19/2016, with CXR, EKG, and Echo. Inpatient Provider Contact Information: [facility] Section of Cardiac Surgery [facility] [place] [address] FAX [phone] Discharge Diagnoses (Hospital Problems) Primary Diagnoses: Secondary [...] 41.32) performed by Alirio Esparza MD at [facility] MAIN OR ??? Pro aortoplas for supravalv sten N/A 09/21/2016 @AORTOPLASTY FOR SUPRAVALVULAR STENOSIS (WRVU 29.33) performed by Alirio Esparza MD at [facility] MAIN OR Prior To Admission [...] Hospital Course: Purnima Thacker was admitted to [facility] on 09/21/2016 via the Same Day [...] Alirio Esparza and/or the Cardiac Surgery Physician Reeler Operator Team may be reached at . Antibiotic prophylaxis: You will need to take antibiotics prior to many invasive tests and treatments, such as dental cleaning, which should be done every 6 months. Your primary care physician or your dentist can prescribe this medication. Please refer to the card with the [place] [employer] Guidelines for more information. You have been provided with 3 copies of this card. Keep one for your self. Give one to your primary care physician and one to your dentist. Please refer to the [place] Heart [employer] Guidelines for more information. [...] Dr. Alirio Jones. You may use a Alsen Track or treadmill but avoid any pulling [...] should resume a low fat, low cholesterol, [place] Heart [employer] Diet. Driving: No driving until [...] the outpatient Phase 2 Cardiac Rehabilitation at [facility]. The patient agrees to a referral to this program. The referral will be sent at discharge and the patient should be contacted by the program within 1- 2 weeks from discharge. Future Appointments and Orders Future Appointments Provider Department Dept Phone 11/20/2016 11:30 AM Markel Borjas MD [facility] [phone] Future Orders Complete By Expires Echocardiogram Transthoracic([facility]) [RIX843 Custom] 10/18/2016 (Approximate) 09/18/2017 Process Instructions: If the Echocardiogram is to be PERFORMED in a location other than [place]--STOP and order [id number], Echocardiogram South/External. Scheduling Instructions: Questions: Is a Bubble Study requested?: No Does the patient have Congenital Heart Disease?: No Does patient require sedation?: None GA rationale: Should this service be billed to the research sponsor?: EKG 12 Lead [EKG1 Custom] 10/18/2016 (Approximate) 09/25/2017 Process Instructions: Scheduling Instructions: Questions: Which location will this be performed?: [place] Is a rhythm strip needed?: No If EKG Reason is Pre-op Evaluation, indicate diagnosis for surgery.: Should this service be billed to the research sponsor?: XR Chest PA & Lateral (Generic) [[id number] Custom] 10/18/2016 (Approximate) 09/25/2017 Process Instructions: Scheduling Instructions: Questions: Where will study be performed?: [facility]- Radiology Portable exam?: No Reason for exam and clinical history: s/p AVReplacement, patch annuloplasty 1 month f/u Other pertinent information: Stat read required?: Date of injury if applicable: Requested Time: Referral to Cardiac Rehab [WFR804 Custom] As directed Process Instructions: If no progress note charted, please enter Clinical details in comments. Scheduling Instructions: Questions: My question or request is: s/p AVR. Cardiac rehab at [facility] Referral to Home Health - at DISCHARGE [CCA2167 CPT(R)] As directed Process Instructions: Scheduling Instructions: Comments: DOCUMENTATION FOR VNA SERVICES (INCLUDING THOSE PATIENTS WITH MEDICARE COVERAGE REQUIRING HOME VNA SERVICES AND/OR HOSPICE SERVICES) PATIENT'S LOCATION: Purnima Magalie Kirstie [address] [place] [phone] (home) No relevant phone numbers on file. Physician Relations Manager's Name: self In discussion with the attending physician, it is certified that this patient is under their care and that they, or a Nurse Practitioner, or Physician Reeler Operator who is working directly with them, [...] for services as follows: HOME HEALTH AGENCY: [facility] PHONE: [phone] FAX: [phone] RN orders: Cardiopulmonary assessment, incisional assessment, assess [...] issues please call the Cardiac SurgeryOffice at [phone] FOR MEDICARE ONLY: In discussion with the [...] Questions: Agency name and contact information: [facility] VNA Patient location post discharge: home What services are requested: Registered Nurse Physical Therapy Occupational Therapy Start date: Responsible MD post discharge contact info: Arrangements for VNA/home care: As above. VN RN OR PCP TO PLEASE REMOVE CHEST TUBE SUTURES ON OR AFTER 09/30/16 Signed: Crispin Aranda PA-C 09/25/2016 [facility] Section of Cardiac Surgery [facility] [place] [address] FAX [phone] Date: 09/25/2016 CC: ANURAG Alford Caryn E, APRN [address] [place] [address] documented in this encounter Discharge Instructions * [...] Alirio Esparza and/or the Cardiac Surgery Physician Reeler Operator Team may be reached at . Antibiotic prophylaxis: You will need to take antibiotics prior to many invasive tests and treatments, such as dental cleaning, which should be done every 6 months. Your primary care physician or your dentist can prescribe this medication. Please refer to the card with the [place] Heart [employer] Guidelines for more information. You have been provided with 3 copies of this card. Keep one for your self. Give one to your primary care physician and one to your dentist. Please refer to the [place] Heart [employer] Guidelines for more information. [...] Dr. Alirio Jones. You may use a Alsen Track or treadmill but avoid any pulling [...] should resume a low fat, low cholesterol, [place] Heart [employer] Diet. Driving: No driving until [...] the outpatient Phase 2 Cardiac Rehabilitation at [facility]. The patient agrees to a referral [...] PM EST Cardiac Surgery Progress Note: ID: [id number] S/p AVR, patch aortoplasty POD#2. PMH of [...] Gas) No results found for: PHART, PO2ART, RZH3OOO Assessment/Plan: TPW out this am. (+) BM. [...] Signed: Crispin Aranda PA-C 09/24/2016 Team pager: [phone]; [phone] after 5pm [facility] Section of Cardiac Surgery * eLonor Henson, [employer] HISTORY PROFESSOR - 09/23/2016 10:48 AM EST Cardiac Surgery Progress Note: ID: [id number] s/p AVR, patch aortoplasty POD#2. PMH of [...] Gas) No results found for: PHART, PO2ART, CLW7NYM Assessment/Plan: s/p AVR, patch aortoplasty POD#2. PMH of Neutropenia, HLD, HTN, Depression, obesity, . Transferred from [facility] yesterday and doing well. Pathway. Will dc [...] Surgeon on rounds. Signed: Leonor Henson APRN [facility] Section of Cardiac Surgery Date: 09/23/2016 * Nico Palacios PA - 09/22/2016 9:56 AM EST Cardiac Surgery Progress Note: ID: [id number] s/p AVR, patch aortoplasty POD#1. PMH of [...] NT, ND, soft. Ext: Moves all extremities. Lengby, well perfused. Incisions: C/D/I Tubes/Lines/Drains: PIV, richi, [...] Attending Surgeon on rounds. Signed: EKATERINA KIM [facility] Section of Cardiac Surgery Date: 09/22/2016 [...] left pleural effusion. T/L/D Al ETT CVL [place] CT Pacing wires ASSESSMENT, MANAGEMENT, and DECISION [...] with outpatient services Lalitha Cohen SPTA Pager: [phone] Inpatient Physical Therapy Patient status, treatment interventions, and goals discussed with student. I am in agreement with all details and associated flowsheet rows as documented and was present for all aspects of the patient treatment session. Nerykatrina Jaramillo, [facility] Pager [phone] Problem: Acute Rehab Services Goal & Intervention Plan Goal: Bed Mobility Goal Stand Alone Therapy Goal Outcome: Ongoing (Interventions Implemented as Appropriate) 09/22/16 16109/25/16 09 Bed Mobility Goal Bed Mobility Goal, Time to Achieve 4 days -- Bed Mobility Goal, Activity Type scoot/bridge;supine to sit/sit to supine -- Bed Mobility Goal, [place] Level independent -- Bed Mobility Goal, Additional [...] Achieve 4 days -- Gait Training Goal, [place] Level independent -- Gait Training Goal, Distance [...] assist, home with home health Lalitha Cohen [facility] Pager: [phone] Inpatient Physical Therapy Patient status, treatment interventions, and goals discussed with student. I am in agreement with all details and associated flowsheet rows as documented and was present for all aspects of the patient treatment session. Nery Jaramillo, [facility] Pager [phone] Problem: Acute Rehab Services Goal & Intervention Plan Goal: Bed Mobility Goal Stand Alone Therapy Goal Outcome: Ongoing (Interventions Implemented as Appropriate) 09/22/16 16109/23/16 1412 Bed Mobility Goal Bed Mobility Goal, Time to Achieve 4 days -- Bed Mobility Goal, Activity Type scoot/bridge;supine to sit/sit to supine -- Bed Mobility Goal, [place] Level independent -- Bed Mobility Goal, Additional [...] Achieve 4 days -- Gait Training Goal, [place] Level independent -- Gait Training Goal, Distance [...] days -- Transfer Training Goal, Activity Type atw-bo-qyhci/vdslp-cu-qnq;zqb-bz-aardo/qsfgt-zv-uhr -- Transfer Train Goal, [place] Level independent -- Transfer Training Goal, Additional Goal abides sternal precautions -- Transfer Training Goal, Outcome -- goal met * Consult Note - Jana Crenshaw RN - 09/23/2016 9:41 AM EST [facility] Purnima Thacker was seen today regarding participation in the outpatient Phase 2 Cardiac Rehabilitation at [facility]. The patient agrees to a referral [...] in the morning. PLAN MOVING FORWARD: Pull la, pull pacing wires, encourage ambulation and incentive [...] Another Service: (cardiac rehab) NICOLE HERNANDEZ, PT Pager:[phone] Inpatient Physical Therapy Problem: Acute Rehab Services Goal & Intervention Plan Goal: Bed Mobility Goal Stand Alone Therapy Goal Outcome: Ongoing (Interventions Implemented as Appropriate) 09/22/16 1611 Bed Mobility Goal Bed Mobility Goal, Time to Achieve 4 days Bed Mobility Goal, Activity Type scoot/bridge;supine to sit/sit to supine Bed Mobility Goal, [place] Level independent Bed Mobility Goal, Additional Goal able to abide sternal precautions during transfers Goal: Gait Training Goal Stand Alone Therapy Goal Outcome: Ongoing (Interventions Implemented as Appropriate) 09/22/16 1611 Gait Training Goal Gait Training Goal, Date Established 09/22/16 Gait Training Goal, Time to Achieve 4 days Gait Training Goal, [place] Level independent Gait Training Goal, Distance to Achieve ascend and descends 2 steps independently Goal: Goal Transfer Training Stand Alone Therapy Goal Outcome: Ongoing (Interventions Implemented as Appropriate) 09/22/16 1611 Goal Transfer Training Transfer Training Goal, Time to Achieve 4 days Transfer Training Goal, Activity Type efa-up-uuucx/izxzy-hg-otz;mpv-gb-mcxhj/iykan-wr-emt Transfer Train Goal, [place] Level independent Transfer Training Goal, Additional Goal [...] of completing AD's at home, chooses her fgjhxy-he-ict, Martha Thacker (home) for her [facility], 2nd choice in friend, Nitesh Leroy [place], [place] Current Coping/Education/Information Needs: patient sitting up [...] who live close by, [place], and her welnbk-gi-nuf Martha Thacker who she has chosen to be her DPOAH. Also has a friend Nitesh Leroy who lives in [place], [place], also her DPOAH choice. Behavioral Health History: none on file in [facility] Substance Use/Abuse: none on file in [facility] Other Pertinent/Service Specific Information: none Health/Prescription Coverage: Primary Insurance: [employer] Secondary Insurance: none Prescription Coverage: yes, per patient no issues Preferred Pharmacy: ?? Other: none Primary Care Provider: Deborah Quiroga, [employer]SI[employer] HISTORY PROFESSOR [phone] Patient/Caregiver Goals of Treatment: per medical team recommendations at discharge for CT surgery Potential Needs for Transition of Care: Rehab/SNF: TBD Home Health: TBD DME: no Dialysis: no Community Resources: non3 Transportation: ride home with a friend Other: none Anticipated Barriers to Discharge/Special Considerations: none anticipated at this time Plan: patient will need VNA services at discharge. The patient/shipping services sales representative has been provided a list of Home Health Agencies/DME vendors which servetheir preferred geographic area. A letter describing our affiliations was reviewed with them and they were educated about their right to choose where referrals are placed. Patient requests referral to: [facility] [email or web address]. PHONE: [phone] FAX: [phone] Expected date of discharge: Fri/Sat? CM called VNA to confirm referral, talked with VALDO Bunn/intake who stated she was familiar w/patient & would monitor her progress through curaspan. Referral routed to the Programmer Developer for matching with agency/vendor and to provide any required information. A member of the Care Management team will continue to monitor progress, follow for continuity of care and assist with transition of care planning. Amanda Moreno RN Pager: [phone] * Op Note - Alirio Esparza MD - 09/21/2016 12:53 PM EST 09/23/2016 Purnima Thacker 1955 [id number] Preoperative Diagnosis: Symptomatic aortic stenosis Postoperative Diagnosis: Symptomatic aortic stenosis Procedure: Aortic valve replacement: Bovine Pericardial 25 mm Surgeon: Alirio Esparza M.D. Reeler Operator: Philip BALL Anesthesia: General endotracheal anesthesia [...] Operative Note Patient Name: Purnima Thacker : [id number] MR#: [id number] Case Date: 09/21/2016 Surgeon: Surgeon(s) and Role: * Alirio Esparza MD - Primary * Nico Palacios PA - Physician Reeler Operator Preoperative diagnosis: Postoperative diagnosis: Procedure(s) (LRB): [...] PM EDT Office Visit Dermatology at [place] [address] [place] [address] Marek Bonilla MD [address] [place] [address] Scheduled Orders Name Type Priority Associated Diagnoses [...] IMPLANTABLE DEVICES SCAN 09/26/2016 12:00 AM EST CLIENT DELIVERY MANAGER SCAN 09/26/2016 12:00 AM EST POTASSIUM [...] SCAN EXT O RDR/RSLT * SCAN DOC: CLIENT DELIVERY MANAGER (09/26/2016 12:00 AM EST) Anatomical Region Laterality Modality Other Narrative 09/26/2016 12:00 AM EST Ordered by an unspecified provider. Scanning Provider MEDIA MGR SCAN EXT O RDR/RSLT * Potassium (09/25/2016 4:32 AM EST) Pathologist [facility] Potassium 4.4 3.5 - 5.0 mmol/L NORTH [...] CHEMISTRY ORDERABLE S [facility] [place] [address] * (ABNORMAL) Differential, Automated (09/24/2016 9:56 AM EST) [facility] Neutrophil % 76.8 % [facility] Neutrophil Absolute 7.79(H) 1.70 - 6.10 x10(3)/mc L [facility] Lymph % 11.1 % [facility] Lymphocytes Abs 1.1 0.9 - 3.2 x10(3)/mc L [facility] Monocyte % 8.5 % [facility] Monocyte Abs 0.9 0.3 - 0.9 x10(3)/mc L [facility] Eos % 0.5 % [facility] Eosinophils Abs 0.0 0.0 - 0.4 x10(3)/mc L [facility] Basophil % 0.2 % [facility] HEMATOLOGY ORDERABL ES [facility] [place] [address] * (ABNORMAL) Hemogram (09/24/2016 9:56 AM EST) [...] [facility] NRBC% auto 1.1 % [facility] NRBC Absolute 0.110(H) 0.000 - 0.000 x10(3)/mc L [facility] Blood specimen (specimen) 09/24/2016 9:56 AM EST 09/24/2016 10:04 AM EST Narrative Resulting Agency Comment Spec In Lab Alirio Esparza MD HEMATOLOGY ORDERABL ES [facility] [place] [address] * (ABNORMAL) Basic Metabolic Panel (non-fasting) (09/24/2016 [...] supplied above were not validated at [facility]. Results from pediatric patients should be interpreted [...] the following links into your internet browser. [email or web address] Blood specimen (specimen) 09/24/2016 9:56 AM EST 09/24/2016 10:04 AM EST Narrative Resulting Agency Comment Spec In Lab Alirio Esparza MD CHEMISTRY ORDERABLE S [facility] [place] [address] * XR Chest PA & Lateral (Generic) [...] MD CHEMISTRY ORDERABLE S Performing Organization Address [facility] Co de Phone Number [facility] [place] [address] * POCT Glucose (09/22/2016 8:17 AM EST) Glucose, POC 131 65 - 199 mg/dL [facility] Comment: Supplemental ranges: <140 mg/dL before meals <180 mg/dL all other times of the day Blood specimen (specimen) 09/22/2016 8:17 AM EST 09/22/2016 8:17 AM EST Alirio Esparza MD POINT OF CARE TEST ORDERABLES Performing Organization Address City/[facility]/ZIP Co de Phone Number [facility] [place] [address] * POCT Glucose (09/22/2016 4:01 AM EST) Glucose, POC 135 65 - 199 mg/dL [facility] Comment: Supplemental ranges: <140 mg/dL before meals <180 mg/dL all other times of the day Blood specimen (specimen) 09/22/2016 4:01 AM EST 09/22/2016 4:01 AM EST Alirio Esparza MD POINT OF CARE TEST ORDERABLES [facility] [place] [address] * Scan, Peripheral Blood (09/22/2016 4:00 AM EST) Plat estimate Normal [facility] RBC Morphology Abnormal [facility] Macrocyte 1-5 /HPF [facility] Plat, Giant Less than 1 /HPF [facility] Blood specimen (specimen) 09/22/2016 4:00 AM EST 09/22/2016 4:34 AM EST Narrative Resulting Agency Comment Spec In Lab Alirio Esparza MD HEMATOLOGY ORDERABL ES Performing Organization Address [facility] Co de Phone Number [facility] [place] [address] * Electrolytes panel (09/22/2016 4:00 AM EST) Pathologist [facility] Sodium 145 135 - 145 mmol/L NORTH [...] MD CHEMISTRY ORDERABLE S Performing Organization Address [facility] Co de Phone Number [facility] [place] [address] * (ABNORMAL) Differential, Automated (09/22/2016 4:00 AM EST) Pathologist [facility] Neutrophil % 70.9 % [facility] Neutrophil Absolute 5.33 1.70 - 6.10 x10(3)/[facility] Lymph % 9.1 % [facility] Lymphocytes Abs 0.7(L) 0.9 - 3.2 x10(3)/[facility] Monocyte % 18.0 % [facility] Monocyte Abs 1.4(H) 0.3 - 0.9 x10(3)/[facility] Eos % 0.0 % [facility] Eosinophils Abs 0.0 0.0 - 0.4 x10(3)/[facility] Basophil % 0.1 % [facility] Baso Absolute 0.0 0.0 - 0.1 x10(3)/[facility] Immature Gran % 1.90 % [facility] Comment: Immature granulocytes(IG's)percentage and absolute count will include metamyelocytes, myelocytes, and promyelocytes. Blood smears from CBCs yielding IG's will be scanned manually for concordance. If this scan disagrees with the automated IG or if promyelocytes are noted, a manual differential will be performed. Immature Gran Absolute 0.14(H) 0.00 - 0.04 x10(3)/[facility] Blood specimen (specimen) 09/22/2016 4:00 AM EST 09/22/2016 4:34 AM EST Narrative Resulting Agency Comment Spec In Lab Alirio Esparza MD HEMATOLOGY ORDERABL ES [facility] [place] [address] * (ABNORMAL) Hemogram (09/22/2016 4:00 AM EST) White Blood Cell 7.5 4.0 - 9.5 x10(3)/[facility] Red Blood Cell 2.93(L) 4.00 - 5.21 x10(6)/[facility] [...] [facility] NRBC% auto 0.3 % [facility] NRBC Absolute 0.020(H) 0.000 - 0.000 x10(3)/mc L [facility] Blood specimen (specimen) 09/22/2016 4:00 AM EST 09/22/2016 4:34 AM EST Narrative Resulting Agency Comment Spec In Lab Alirio Esparza MD HEMATOLOGY ORDERABL ES [facility] [place] [address] * (ABNORMAL) Cardiac Enzymes (09/22/2016 4:00 AM [...] consensus document of the Joint Society of Cardiology/[place] College of Cardiology Committee for the redefinition of myocardial infarction. ??Journal of the [place] College of Cardiology 2000; 36: 959-969] Creatine Kinase 338(H) 0 - 160 unit/L [facility] Blood specimen (specimen) 09/22/2016 4:00 AM EST 09/22/2016 4:34 AM EST Narrative Resulting Agency Comment Spec In Lab Alirio Esparza MD CHEMISTRY ORDERABLE S Performing Organization Address City/State/[facility] Co de Phone Number [facility] [place] [address] * (ABNORMAL) Glucose, fasting (09/22/2016 4:00 AM [...] of Diabetes Mellitus, Position Statement from the [place] Diabetes Association. ??Diabetes Care, Volume 33, Supplement 1, Aug 2009 Blood specimen (specimen) 09/22/2016 4:00 AM EST 09/22/2016 4:34 AM EST Narrative Resulting Agency Comment Spec In Lab Alirio Esparza MD CHEMISTRY ORDERABLE S Performing Organization Address City/[facility]/ZIP Co de Phone Number [facility] [place] [address] * (ABNORMAL) Creatinine (09/22/2016 4:00 AM EST) Creatinine 0.69(L) 0.70 - 1.20 mg/dL [facility] Comment: Please note that the pediatric reference intervals supplied above were not validated at [facility]. Results from pediatric patients should be interpreted in conjunction to the patient's age, height and muscle mass. Est Glomerular Filtration Rate >60 >=60 [place] [...] the following links into your internet browser. [email or web address] Blood specimen (specimen) 09/22/2016 4:00 AM EST 09/22/2016 4:34 AM EST Narrative Resulting Agency Comment Spec In Lab Alirio Esparza MD CHEMISTRY ORDERABLE S Performing Organization Address [facility]/ZIP Co de Phone Number [facility] [place] [address] * BUN (09/22/2016 4:00 AM EST) Blood Urea Nitrogen 10 8 - 18 mg/dL [facility] Blood specimen (specimen) 09/22/2016 4:00 AM EST 09/22/2016 4:34 AM EST Narrative Resulting Agency Comment Spec In Lab Alirio Esparza MD CHEMISTRY ORDERABLE S Performing Organization Address City/[facility]/ZIP Co de Phone Number [facility] [place] [address] * POCT Glucose (09/21/2016 9:59 PM EST) Glucose, POC 146 65 - 199 mg/dL [facility] Comment: Supplemental ranges: <140 mg/dL before meals <180 mg/dL all other times of the day Blood specimen (specimen) 09/21/2016 9:59 PM EST 09/21/2016 9:59 PM EST Alirio Esparza MD POINT OF CARE TEST ORDERABLES [facility] [place] [address] * POCT Glucose (09/21/2016 7:26 PM EST) Glucose, POC 152 65 - 199 mg/dL [facility] Comment: Supplemental ranges: <140 mg/dL before meals <180 mg/dL all other times of the day Blood specimen (specimen) 09/21/2016 7:26 PM EST 09/21/2016 7:26 PM EST Alirio Esparza MD POINT OF CARE TEST ORDERABLES [facility] [place] [address] * POCT Glucose (09/21/2016 6:00 PM EST) Glucose, POC 146 65 - 199 mg/dL [facility] Comment: Supplemental ranges: <140 mg/dL before meals <180 mg/dL all other times of the day Blood specimen (specimen) 09/21/2016 6:00 PM EST 09/21/2016 6:00 PM EST Alirio Esparza MD POINT OF CARE TEST ORDERABLES [facility] [place] [address] * (ABNORMAL) BLOOD GAS 2 ARTERIAL (09/21/2016 4:42 PM EST) pH, Arterial 7.35(L) 7.35 - 7.45 [facility] PCO2, Arterial 48(H) 35 - 45 mmHg [facility] PO2, Arterial 108(H) 85 - 104 mmHg [facility] Bicarbonate, Arterial 26.0 20.0 - 26.0 mmol/L [facility] [place] Base Excess, Arterial 0.5 -3.0 - 3.0 mmol/L [facility] Hgb Blood Gas 10.4(L) 11.7 - 15.5 gm/dL [facility] Oxyhemoglobin, Arterial 96.2 94.0 - 97.0 % [facility] [place] [facility] Carboxyhemoglob in, Arterial 0.0 % [facility] FIO2 Art 40 % [facility] PF Ratio Art 270 [facility] Blood specimen (specimen) 09/21/2016 4:42 PM EST 09/21/2016 4:42 PM EST Alirio Esparza MD POINT OF CARE TEST ORDERABLES Performing Organization Address [facility] Co de Phone Number [facility] [place] [address] * POCT Glucose (09/21/2016 4:07 PM EST) Glucose, POC 150 65 - 199 mg/dL [facility] Comment: Supplemental ranges: <140 mg/dL before meals <180 mg/dL all other times of the day Blood specimen (specimen) 09/21/2016 4:07 PM EST 09/21/2016 4:07 PM EST Alirio Esparza MD POINT OF CARE TEST ORDERABLES Performing Organization Address [facility] Co de Phone Number [facility] [place] [address] * (ABNORMAL) Hemoglobin (09/21/2016 4:05 PM EST) Hemoglobin 9.9(L) 11.7 - 15.5 gm/dL [facility] Blood specimen (specimen) 09/21/2016 4:05 PM EST 09/21/2016 4:20 PM EST Narrative Resulting Agency Comment Spec In Lab Alirio Esparza MD HEMATOLOGY ORDERABL ES Performing Organization Address [facility] Co de Phone Number [facility] [place] [address] * Potassium (09/21/2016 4:05 PM EST) Potassium [...] MD CHEMISTRY ORDERABLE S Performing Organization Address [facility] Co de Phone Number [facility] [place] [address] * POCT Glucose (09/21/2016 2:52 PM EST) Glucose, POC 117 65 - 199 mg/dL [facility] Comment: Supplemental ranges: <140 mg/dL before meals <180 mg/dL all other times of the day Blood specimen (specimen) 09/21/2016 2:52 PM EST 09/21/2016 2:52 PM EST Alirio Esparza MD POINT OF CARE TEST ORDERABLES Performing Organization Address [facility] Phone Number [facility] [place] [address] * POCT Glucose (09/21/2016 1:51 PM EST) Glucose, POC 108 65 - 199 mg/dL [facility] Comment: Supplemental ranges: <140 mg/dL before meals <180 mg/dL all other times of the day Blood specimen (specimen) 09/21/2016 1:51 PM EST 09/21/2016 1:51 PM EST Alirio Esparza MD POINT OF CARE TEST ORDERABLES Performing Organization Address [facility] Co de Phone Number [facility] [place] [address] * POCT Glucose (09/21/2016 12:54 PM EST) Glucose, POC 128 65 - 199 mg/dL [facility] Comment: Supplemental ranges: <140 mg/dL before meals <180 mg/dL all other times of the day Blood specimen (specimen) 09/21/2016 12:54 PM EST 09/21/2016 12:54 PM EST Alirio Esparza MD POINT OF CARE TEST ORDERABLES Performing Organization Address City/[facility]/ZIP Co de Phone Number [facility] [place] [address] * EKG 12 Lead (09/21/2016 12:26 PM EST) Ventricular rate 87 BPM MUSE SYSTEM Atrial Rate 87 BPM MUSE SYSTEM P-R Interval 256 ms MUSE SYSTEM QRS Duration 90 ms MUSE SYSTEM Q-T Interval 406 ms MUSE SYSTEM QTC Calculated (Bezet) 488 ms MUSE SYSTEM Calculated P [place] 24 degrees MUSE SYSTEM Calculated R [place] 21 degrees MUSE SYSTEM Calculated T [place] -5 degrees MUSE SYSTEM INTERPRETATION Sinus rhythm with 1st degree A-V block Nonspecific T wave abnormality Prolonged QT Abnormal ECG When compared with ECG of 19-MAY-2016 11:43, VT interval has increased T wave inversion now evident in inferior and midanterior leads Confirmed by MD ESTES EDWARD ([id number]) on 09/21/2016 1:40:59 PM MUSE SYSTEM 09/21/2016 12:2 6 PM EST 09/21/2016 1:40 PM EST Alirio Esparza MD ECG ORDERABLES Performing Organization Address [facility] Co de Phone Number MUSE SYSTEM * [...] course of the esophagus and below the [id number]. There is a right IJ PA catheter projecting over the right pulmonary artery. 2 mediastinal drainage tubes are in place. Intact median sternotomy wires. There has been aortic valve repair. There is a small left pleural effusion. No focal pulmonary opacity. Procedure Note Markel wEing MD - 09/21/2016 EXAMINATION: XR CHEST PA OR AP 1 VIEW CLINICAL HISTORY: s/p avr TECHNIQUE: AP view of the chest at 20 degrees upright COMPARISON: Chest radiograph 05/19/16 FINDINGS: Low lung lines bilaterally. The endotracheal tube tip is below theclavicles and above the shira. A nasogastric tube projects over the course of theesophagus and below the [id number]. There is a right IJ PA catheter [...] [facility] FIO2 Art 100 % [facility] PF Ratio Art 356 [facility] Blood specimen (specimen) 09/21/2016 12:20 PM EST 09/21/2016 12:20 PM EST Alirio Esparza MD POINT OF CARE TEST ORDERABLES Performing Organization Address City/State/[facility] Co de Phone Number [facility] [place] [address] * (ABNORMAL) BLOOD GAS 2 ARTERIAL (09/21/2016 [...] [facility] FIO2 Art 95 % [facility] Flow Art 0.7 LPM [facility] PF Ratio Art 313 [facility] Temp Art 36.7 Celsius [facility] Blood specimen (specimen) 09/21/2016 10:54 AM EST 09/21/2016 10:54 AM EST Alirio Esparza MD POINT OF CARE TEST ORDERABLES Performing Organization Address City/State/[facility] Co de Phone Number [facility] [place] [address] * Thrombin time (09/21/2016 10:50 AM EST) [...] MD HEMATOLOGY ORDERABLE S Performing Organization Address [facility] Co de Phone Number [facility] [place] [address] * Fibrinogen (09/21/2016 10:50 AM EST) Fibrinogen [...] MD HEMATOLOGY ORDERABLE S Performing Organization Address [facility] Co de Phone Number [facility] [place] [address] * APTT (09/21/2016 10:50 AM EST) Partial Thromboplastin Time 32 25 - 35 sec [facility] Comment: The recommended therapeutic range for full dose, unfractionated heparin at [facility] is 80 ? 114 seconds. The use of the anti-Xa (heparin) level rather than the PTT is recommended for monitoring anticoagulation intensity in critically ill patients receiving unfractionated heparin by continuous IV infusion. Blood specimen (specimen) 09/21/2016 10:50 AM EST 09/21/2016 10:56 AM EST Narrative Resulting Agency Comment Spec In Lab Luis Enrique Quarles MD HEMATOLOGY ORDERABLE S Performing Organization Address City/[facility] Co de Phone Number [facility] [place] [address] * (ABNORMAL) Prothrombin Time (09/21/2016 10:50 AM [...] MD HEMATOLOGY ORDERABLE S Performing Organization Address City/State/[facility] Co de Phone Number [facility] [place] [address] * (ABNORMAL) Hemogram (09/21/2016 10:50 AM EST) Pathologist [facility] White Blood Cell 14.7(H) 4.0 - 9.5 [...] Standard Deviation 42.6 37.0 - 46.0 [facility] RDW coefficient of variation 12.1 11.5 - 14.1 % [facility] Mean Platelet Volume 9.2 7.6 - 12.9 [facility] NRBC% auto 0.1 % [facility] NRBC Absolute 0.020(H) 0.000 - 0.000 x10(3)/mc L [facility] Blood specimen (specimen) 09/21/2016 10:50 AM EST 09/21/2016 10:56 AM EST Narrative Resulting Agency Comment Spec In Lab Luis Enrique Quarles MD HEMATOLOGY ORDERABLE S Performing Organization Address [facility] Co de Phone Number [facility] [place] [address] * Prepare Platelets, Apheresis (09/21/2016 10:30 AM EST) Pathologist [facility] Dispensed? Yes [facility] Blood specimen (specimen) 09/21/2016 10:30 AM EST 09/21/2016 10:28 AM EST Alirio Esparza MD BLOOD BANK PRODUCT ORDERABLES Performing Organization Address [facility] Co fl Phone Number [facility] [place] [address] * (ABNORMAL) BLOOD GAS 2 ARTERIAL (09/21/2016 10:05 AM EST) pH, Arterial 7.33(L) 7.35 - 7.45 [facility] PCO2, Arterial 54(Critic al) 35 - 45 mmHg [facility] Comment:Noted by director of instrumental music. PO2, Arterial 218(H) 85 - 104 mmHg [...] [facility] Comment: Noted by director of instrumental music. Please note: Patients with WBC >100,000 may [...] [facility] Temp Art 37.0 Celsius [facility] Blood specimen (specimen) 09/21/2016 10:05 AM EST 09/21/2016 10:05 AM EST Alirio Esparza MD POINT OF CARE TEST ORDERABLES [facility] [place] [address] * (ABNORMAL) BLOOD GAS 2 ARTERIAL (09/21/2016 9:44 AM EST) pH, Arterial 7.22(Criti gabrielle) 7.35 - 7.45 [facility] Comment:Noted by director of instrumental music. PCO2, Arterial 70(Critica l) 35 - 45 mmHg [facility] Comment:Noted by director of instrumental music. PO2, Arterial 224(H) 85 - 104 mmHg [...] CARE TEST ORDERABLES [facility] [place] [address] * (ABNORMAL) Hemoglobin (09/21/2016 9:42 AM EST) Hemoglobin 7.2(L) 11.7 - 15.5 gm/dL [facility] Blood specimen (specimen) 09/21/2016 9:42 AM EST 09/21/2016 9:51 AM EST Narrative Resulting Agency Comment Spec In Lab Alirio Esparza MD HEMATOLOGY ORDERABL ES Performing Organization Address [facility]/ZIP Co de Phone Number [facility] [place] [address] * Platelet count (09/21/2016 9:42 AM EST) Platelet 159 145 - 357 x10(3)/mc L [facility] Immature Plt % 1.6 0.0 - 7.4 % [facility] Comment: Limitation of the Immature Platelet Fraction (IPF)-May be less reliable when the platelet count is less than 03s437/uL due to statistical imprecision. The IPF value [...] in a decreased state of production. References: [employer] The Clinical Value of the Immature Platelet Fraction (IPF) in Cell Recovery Document Number [id number] 12/2010 [employer] The Role of the Immature Platelet Fraction (IPF) in the Differential Diagnosis of Thrombocytopenia, Document [id number] V012/11/13 P012/13 Blood specimen (specimen) 09/21/2016 9:42 AM EST 09/21/2016 9:51 AM EST Narrative Resulting Agency Comment Spec In Lab Alirio Esparza MD HEMATOLOGY ORDERABL ES Performing Organization Address [facility] Co de Phone Number [facility] [place] [address] * (ABNORMAL) Hematocrit (09/21/2016 9:42 AM EST) [...] Organization Address [facility] de Phone Number [facility] [place] [address] * Fibrinogen (09/21/2016 9:42 AM EST) Fibrinogen [...] HEMATOLOGY ORDERABL ES Performing Organization Address [facility] Co de Phone Number [facility] [place] [address] * (ABNORMAL) BLOOD GAS 2 ARTERIAL (09/21/2016 [...] [facility] Temp Art 37.0 Celsius [facility] Blood specimen (specimen) 09/21/2016 9:10 AM EST 09/21/2016 9:10 AM EST Alirio Esparza MD POINT OF CARE TEST ORDERABLES Performing Organization Address City/[facility] Co de Phone Number [facility] [place] [address] * Surgical Pathology Report (09/21/2016 9:09 AM EST) Final Diagnosis [id number] ?Location: 3T The signing pathologist has (i) [...] Esparza MD PATHOLOGY/CYTOLOGY ORDERABLES Performing Organization Address [facility]/ZIP Co de Phone Number [facility] [place] [address] * Specimen to Pathology (surgical or derm) (09/21/2016 9:09 AM EST) AP Specimen 09/21/2016 9:09 AM EST 09/21/2016 9:09 AM EST Narrative [facility] - 09/21/2016 9:09 AM EST Specimen requisition ordered. ??Separate Pathology report to follow Alirio Esparza MD PATHOLOGY/CYTOLOGY ORDERABLES [facility] [place] [address] * (ABNORMAL) BLOOD GAS 2 ARTERIAL (09/21/2016 [...] CARE TEST ORDERABLES [facility] [place] [address] * (ABNORMAL) BLOOD GAS 2 ARTERIAL (09/21/2016 [...] [facility] FIO2 Art 95 % [facility] Flow Art 1.1 LPM [facility] PF Ratio Art 298 [facility] Temp Art 35.6 Celsius [facility] Blood specimen (specimen) 09/21/2016 8:18 AM EST 09/21/2016 8:18 AM EST Alirio Esparza MD POINT OF CARE TEST ORDERABLES [facility] [place] [address] * Prepare RBC (09/21/2016 7:05 AM EST) Dispensed? Yes [facility] Blood specimen (specimen) 09/21/2016 7:05 AM EST 09/21/2016 7:02 AM EST Alirio Esparza MD BLOOD BANK PRODUCT ORDERABLES [facility] [place] [address] * POCT Glucose (09/21/2016 6:42 AM EST) Glucose, POC 104 65 - 199 mg/dL [facility] Comment: Supplemental ranges: <140 mg/dL before meals <180 mg/dL all other times of the day Blood specimen (specimen) 09/21/2016 6:42 AM EST 09/21/2016 6:42 AM EST Alirio Esparza MD POINT OF CARE TEST ORDERABLES [facility] [place] [address] documented in this encounter Visit Diagnoses Diagnosis [...] dose on Wed09/21/16 at 1230, Until Discontinued, Copen teeth, Routine Given 09/25/2016 9:40 AM EST [...] if phenyleprine and/or vasopressin ineffective.Call pager # [phone] if initiated., Routine Rate/Dose Change 09/21/2016 2:27 [...] L/min/M2. Maximum volume 2 L. Call warehouse handler for additional fluid orders: pager #[phone]. Rate/Dose Verify 09/22/2016 10:00 AM EST 10 [...] (Due - Provider: Kendall Martínez [facility]) aspirin chewable tablet 81 mg(Linked Group 1) [...] dose on Wed09/21/16 at 1230, Until Discontinued, Copen teeth, Routine 0900 (Not Given - Provider: [...] Routine documented in this encounter Care Teams Html Web Developer Relationship Specialty Start Date End Date Deborah Quiroga APRN PCP - General Family Medicine 03/24/16 02/04/23 documented as of this encounter
--- OUTSIDE RECORDS SUMMARY | 2024-04-06 13:59 | XMS_ITS | Encounter Summary ---
[place] [address] Care Team Providers Care Braze Operator Name Role Phone Ashley Quirogan Cornelius ANURAG Primary Care Provider [phone] Reason for Visit * Reason Onset Date Comments Medication Management 09/14/2016 Encounter Details Date Type Department Care Team (Late st Contact Info) Description 09/14/2016 Telephone Hematology [place] [phone] Alexandrea Greenwood, grout worker Management Social History Tobacco Use Types Packs/Day [...] 09/14/2016 9:12 AM EST Message received from national secretary: Purnima called, asking for clarification on [...] PM EDT Office Visit Dermatology at [place] [address] [place] [address] Marek Bonilla MD [address] [place] [address] documented as of this encounter Visit Diagnoses Not on filedocumented in this encounter Care Teams Braze Operator Relationship Specialty Start Date End Date Deborah Quiroga APRN PCP - General Family Medicine 03/24/16 02/04/23 documented as of this encounter
--- OUTSIDE RECORDS SUMMARY | 2024-04-06 13:59 | XMS_ITS | Encounter Summary ---
[place] [address] Care Team Providers Care Step Down Specialist Name Role Phone JunaidDeborah APRN Primary Care Provider [phone] Reason for Visit * Reason Onset Date Comments Labs Only 09/16/2016 Encounter Details Date Type Department Care Team (Late st Contact Info) Description 09/16/2016 Telephone Hematology [place] [phone] Alexandrea Greenwood, RN Labs Only Social History [...] 09/16/2016 11:09 AM EST Message received from financial secretary: Purnima is having her Neulasta done today at [facility]. ??She is wondering if we want to do a CBC prior to the injection? [phone] Borjas: CBC is fine RN spoke with Swapna at [facility] who confirms they can draw CBC on pt today, RN faxed CBC w/diff to [facility] lab at [phone] RN relayed to pt that CBC ordered had been faxed to [facility], pt will have CBC drawn today prior to neulasta injection. documented in this encounter Plan of Treatment Upcoming Encounters Date Type Department Care Team (Late st Contact Info) Description 03/01/2025 4:15 PM EDT Office Visit Dermatology at [place] [address] [place] [address] Marek Bonilla MD [address], [address] [place] [address] documented as of this encounter Results * [...] type documented in this encounter Care Teams Step Down Specialist Relationship Specialty Start Date End Date Deborah Quiroga APRN PCP - General Family Medicine 03/24/16 02/04/23 documented as of this encounter
--- OUTSIDE RECORDS SUMMARY | 2024-04-06 14:00 | XMS_ITS | Encounter Summary ---
Author Organization [facility] Address [facility] [place] [address] Care Team Providers Care Manager Automotive Name Role Phone Junaid, Deborah Shields APRN Primary Care Provider [phone] Reason for Visit * Auth/Cert Specialty Diagnoses / Procedures Referred By Crispin t Referred To Contact Diagnoses AVS Procedures CARDIAC CATHETERIZATION Referral ID Status Reason Start Date Expiration Date Visits Re quested Visits Authorized [id number] 1 1 Encounter Details Date Type Department Care Team (Late st Contact Info) Description 06/03/2016 7:30 AM EDT - 06/03/2016 8:30 AM EDT Surgery [place] [phone] Mario Alberto Escobedo MD [facility] [place] [address] CARDIAC CATHETERIZATION Social History Tobacco Use Types [...] by your doctor, do not take any ssgj-ymv-carllhx medicinesor herbal preparations without first discussing this with your doctor or pharmacist. There is the possibility of side effects and interactions when these are combined. Follow Up Care Who to call with questions or problems If there are any questions or problems that you think might be related to your cardiac cath or angioplasty, contact the mandarin teacher telesales professional by calling [facility] at . * Patient Instructions* Felicia Corrigan - 06/03/2016 9:33 AM EDT Cardiology Instructions Call your doctor if: Chest pain, dyspnea, pain or swelling in legs occurs. If you have non-emergent questions between now and the time of your follow up appointments: -During 8am-5pm Wednesday through Wednesday call [phone] to speak with a nurse in the cardiology clinic -All other times call [phone] and ask to speak to the cargo worker telesales professional. MEDICATIONS - restart your spironolactone, discontinue [...] Appointments: Primary care provider: Cardiology: Deborah Hahn, BARREL BUNG REMOVER AND DUMPER [phone] Follow up as planned or as needed. Dr. Esparza [phone] Other follow-up appointment: Hematology - Dr. Mario [...] 4:15 PM EDT Office Visit Dermatology at [place] [address] [place] [address] Marek Bonilla MD [address], [address] [place] [address] documented as of this encounter Procedures Procedure [...] Green Tube HOLD (06/03/2016 11:45 AM EDT) [facility] Green Hold Sample in lab. [facility] Blood specimen (specimen) Venous Draw / Unknown 06/03/2016 11:45 AM EDT 06/03/2016 12:12 PM EDT Mario Alberto Escobedo MD CHEMISTRY ORDERABLES Performing Organization Address [facility] de Phone Number [facility] [place] [address] * Methylmalonic acid, serum (06/03/2016 11:45 AM EDT) [facility] Methylmalonic Acid (NOVEMBER) 0.21 <=0.40 nmol/mL [facility] Comment: Test Performed by: [place] [address] Clinical Appeals Specialist: Raymond Chaudhry II, M.D., Ph.D. Blood specimen (specimen) 06/03/2016 11:45 AM EDT 06/03/2016 1:57 PM EDT Narrative Resulting Agency Comment Spec In Lab Mario Alberto Escobedo MD LAB SEND OUT ORDERAB LES Performing Organization Address [facility] Co de Phone Number [facility] [place] [address] * Granulocyte Antibody (06/03/2016 11:45 AM EDT) [facility] Granulocyte Ab (NOVEMBER) Negative Not Applicable [facility] Comment: ADDITIONAL INFORMATION Method: Immunofluorescent Assay Performing Laboratory CLIA# [id number] This test was developed and its performance characteristics determined by [facility] in a manner consistent with CLIA requirements. This test has not been cleared or approved by the U.S. Food and Drug Administration. Test Performed by: [facility] - [address] [address] Clinical Appeals Specialist: Raymond Chaudhry II, M.D., Ph.D. Blood specimen (specimen) 06/03/2016 11:45 AM EDT 06/03/2016 1:57 PM EDT Narrative Resulting Agency Comment Spec In Lab Mario Alberto Escobedo MD LAB SEND OUT ORDERAB LES Performing Organization Address [facility] Co de Phone Number [facility] [place] [address] * TSH (06/03/2016 11:45 AM EDT) Thyroid Stimulating Hormone 2.18 0.27 - 4.20 mcIU/mL [facility] Blood specimen (specimen) 06/03/2016 11:45 AM EDT 06/03/2016 12:11 PM EDT Narrative Resulting Agency Comment Spec In Lab Mario Alberto Escobedo MD CHEMISTRY ORDERABLES Performing Organization Address [facility] Co de Phone Number [facility] [place] [address] * Homocysteine Total, Plasma (06/03/2016 11:45 AM EDT) Homocystine 9 <=15 mcmol/L [facility] Blood specimen (specimen) 06/03/2016 11:45 AM EDT 06/03/2016 12:11 PM EDT Narrative Resulting Agency Comment Spec In Lab Mario Alberto Escobedo MD CHEMISTRY ORDERABLES Performing Organization Address [facility] Co de Phone Number [facility] [place] [address] * Folate, serum (06/03/2016 11:45 AM EDT) Folate >20.0 4.8 - 24.2 ng/mL [facility] Blood specimen (specimen) 06/03/2016 11:45 AM EDT 06/03/2016 12:04 PM EDT Narrative Resulting Agency Comment Spec In Lab Mario Alberto Escobedo MD CHEMISTRY ORDERABLES Performing Organization Address [facility] Co de Phone Number [facility] [place] [address] * (ABNORMAL) Sedimentation rate (06/03/2016 11:45 AM EDT) Sedimentation Rate Automated 41(H) 0 - 20 mm/hr [facility] Blood specimen (specimen) 06/03/2016 11:45 AM EDT 06/03/2016 12:04 PM EDT Narrative Resulting Agency Comment Spec In Lab Mario Alberto Escobedo MD HEMATOLOGY ORDERABLE S Performing Organization Address [facility] Co de Phone Number [facility] [place] [address] * Lactate Dehydrogenase (06/03/2016 11:45 AM EDT) Lactate Dehydrogenase 164 110 - 220 unit/L [facility] Blood specimen (specimen) 06/03/2016 11:45 AM EDT 06/03/2016 12:11 PM EDT Narrative Resulting Agency Comment Spec In Lab Mario Alberto Escobedo MD CHEMISTRY ORDERABLES Performing Organization Address [facility] Co de Phone Number [facility] [place] [address] * Comprehensive metabolic panel (non-fasting) (06/03/2016 11:45 AM EDT) Glucose 90 65 - 199 mg/dL [facility] Comment:Diabetes: >=200 mg/d L plus symptoms Blood Urea Nitrogen 11 8 - 18 mg/dL [facility] Creatinine 0.83 0.70 - 1.20 mg/dL [facility] Comment: Please note that the pediatric reference intervals supplied above were not validated at [facility]. Results from pediatric patients should be interpreted in conjunction to the patient's age, height and muscle mass. Sodium 143 135 - 145 mmol/L [facility] Potassium 4.0 3.5 - 5.0 mmol/L [facility] Comment: Please note: ??Patients with WBC >100,000 may have falsely elevated Potassium levels. ??For accurate Potassium quantification in these patients send serum separator tube (gold top) for subsequent determinations. ??Contact the Clinical Chemistry Laboratory if there are any questions. Chloride 104 98 - 107 mmol/L [facility] Carbon Dioxide 25 22 - 31 mmol/L [facility] Anion Gap 14 5 - 15 mmol/L [facility] Calcium 9.2 8.5 - 10.5 mg/dL [facility] Protein, Total 7.0 6.1 - 8.0 gm/dL [facility] Albumin 4.0 3.2 - 5.2 gm/dL [facility] Aspartate Aminotransferase 17 0 - 30 unit/L [facility] Alanine Aminotransferase 9 0 - 30 unit/L [facility] Alkaline Phosphatase 81 40 - 104 unit/L [facility] Bilirubin, Total 0.4 0.2 - 1.3 mg/dL [facility] Bilirubin, Direct 0.1 0.0 - 0.3 mg/dL [facility] Est Glomerular [...] the following links into your internet browser. [email or web address] Blood specimen (specimen) 06/03/2016:45 AM EDT 06/03/2016 12:11 PM EDT Narrative Resulting Agency Comment Spec In Lab Mario Alberto Escobedo MD CHEMISTRY ORDERABLES [facility] [place] [address] documented in this encounter Visit Diagnoses Diagnosis [...] Hernandez) documented in this encounter Care Teams Manager Automotive Relationship Specialty Start Date End Date Deborah Quiroga APRN PCP - General Family Medicine 03/24/16 02/04/23 documented as of this encounter
--- OUTSIDE RECORDS SUMMARY | 2024-04-06 14:00 | XMS_ITS | Encounter Summary ---
Author Organization [facility] Address [facility] [place] [address] Care Team Providers Care Dairy Worker Name Role Phone JunaidAshley hargrovezac Shields APRN Primary Care Provider [phone] Reason for Visit * Consultation (Urgent) - Closed Specialty Diagnoses / Procedures Referred By Contac t Referred To Contact Cardiac Surgery Diagnoses aortic stenosis, consideration for valve replacement Antelmo Burrell MD [address] [place] [address] Alirio Esparza MD [facility] [facility] [address] C[place]AC[place] [address] Referral ID Status Reason Start Date Expiration Date V isits Requested Visits Authorized [id number] Closed Connection Center 03/04/2016 03/04/2017 1 1 Encounter Details Date Type Department Care Team (Late st Contact Info) Description 03/24/2016 10:40 AM EDT Office [place] [phone] Alirio Esparza MD Aortic valve stenosis, unspecified [...] This is a patient of Antelmo Burrell [facility] Cardiology. Mrs. Thacker is being sent [...] 30 minute visit, 20 minutes were spent [id number] with the patient discussing aortic stenosis and valve replacement. documented in this encounter Plan of Treatment Upcoming Encounters Date Type Department Care Team (Late st Contact Info) Description 03/01/2025 4:15 PM EDT Office Visit Dermatology at [place] [address] [place] [address] Marek Bonilla MD [address], [place] [address] documented as of this encounter Visit Diagnoses Diagnosis Aortic valve stenosis, unspecified etiology documented in this encounter Care Teams Dairy Worker Relationship Specialty Start Date End Date Deborah Quiroga APRN PCP - General Family Medicine 03/24/16 02/04/23 documented as of this encounter
--- OUTSIDE RECORDS SUMMARY | 2024-04-06 14:00 | XMS_ITS | Encounter Summary ---
Author Organization [facility] [place] [address] Care Team Providers Care Solar Project Coordination Specialist Name Role Phone Junaid Deborah Shields APRN Primary Care Provider [phone] Encounter Details Date Type Department Care Team (Latest Contact Info) Description 05/19/2016 11:00 AM EDT Clinical Support [place] [address] Nonrheumatic aortic valve stenosis Social History Tobacco [...] 4:15 PM EDT Office Visit Dermatology at [place] [address] [place] [address] Marek Bonilla MD [address], [place] [address] documented as of this encounter Procedures Procedure [...] (Bezet) 448 ms MUSE SYSTEM Calculated P [place] 37 degrees MUSE SYSTEM Calculated R [place] 31 degrees MUSE SYSTEM Calculated T [place] 25 degrees MUSE SYSTEM INTERPRETATION Normal sinus rhythm Normal ECG No previous ECGs available Confirmed by MD Becca, Deangelo ([id number]) on 05/19/2016 5:23:33 PM MUSE SYSTEM 05/19/2016 11:4 3 AM EDT 05/19/2016 5:23 PM EDT Alirio Esparza MD ECG ORDERABLES MUSE SYSTEM documented in this encounter Visit Diagnoses Diagnosis Nonrheumatic aortic valve stenosis Aortic valve disorders documented in this encounter Care Teams Solar Project Coordination Specialist Relationship Specialty Start Date End Date Deborah Quiroga APRN PCP - General Family Medicine 03/24/16 02/04/23 documented as of this encounter
--- OUTSIDE RECORDS SUMMARY | 2024-04-06 14:00 | XMS_ITS | Encounter Summary ---
Author Organization [facility] [place] [address] Care Team Providers Care Chili Powder Mixer Name Role Phone Deborah Quiroga APRN Primary Care Provider [phone] Encounter Details Date Type Department Care Team (Late st Contact Info) Description 08/18/2016 4:20 PM EST Clinical [place] [phone] Social History Tobacco Use Types Packs/Day Years [...] 4:15 PM EDT Office Visit Dermatology at [place] [address] [place] [address] Marek Bonilla MD [address], [place] [address] documented as of this encounter Visit Diagnoses Not on filedocumented in this encounter Care Teams Chili Powder Mixer Relationship Specialty Start Date End Date Deborah Quiroga APRN PCP - General Family Medicine 03/24/16 02/04/23 documented as of this encounter
--- OUTSIDE RECORDS SUMMARY | 2024-04-06 14:00 | XMS_ITS | Encounter Summary ---
Author Organization [facility] Address [facility] [place] [address] Care Team Providers Care Numerical Tool Programmer Name Role Phone Deborah Quiroga ANURAG Primary Care Provider [phone] Encounter Details Date Type Department Care Team (Late st Contact Info) Description 05/22/2016 Orders Only Cardiology at [address] [address] Chele Randolph PA [address] [place] [address] Aortic valve stenosis, unspecified etiology Social History [...] 4:15 PM EDT Office Visit Dermatology at [place] [address] [place] [address] Marek Bonilla MD [address], [place] [address] documented as of this encounter Procedures Procedure Name Priority Date/Time Associated Diagnosis Comments CARDIAC CATHETERIZATION Routine 06/03/20 16 9:13 AM EDT Aortic valve stenosis, unspecified etiology documented in this encounter Results * CARDIAC CATHETERIZATION (06/03/2016 9:13 AM EDT) Anatomical Region Laterality Modality Other Narrative 06/03/2016 10:13 AM EDT ?[facility] ? Cardiac Catheterization/Intervention Report ? Patient Name: Kirstie, Purnima M. ? Procedure Date: 06/03/2016 ? A #: [id number] ? Primary Physician: Nitesh Escobedo ? Case #: [id number] ? File Name: [id number] ? Catheterization Order Number: [id number] ? [facility] ? Final Report [place], [place] ? Patient Name: ? Purnima M. Kirstie ? ID#: ?[id number] ? : ?1955 ? Procedure Date: ? [...] no symptom, no angina (w/i 14 days). [place] ?Cardiovascular Society angina class was 0. This [...] Procedure Note Nitesh Escobedo MD - 09/21/2016 [facility] Cardiac Catheterization/Intervention Report Patient Name: Purnima Thacker Procedure Date: 06/03/2016 A #: [id number] Primary Physician: Nitesh Escobedo Case #: [id number] File Name: [id number] Catheterization Order Number: [id number] [facility] FinalReport [place], [place] Patient Name: Purnima Thacker ID#:[id number] :1955 Procedure Date: June 03, 2016 Case [...] with: no symptom, no angina (w/i 14 days).[place] Cardiovascular Society angina class was 0. This [...] etiology documented in this encounter Care Teams Numerical Tool Programmer Relationship Specialty Start Date End Date Deborah Quiroga APRN PCP - General Family Medicine 03/24/16 02/04/23 documented as of this encounter
--- OUTSIDE RECORDS SUMMARY | 2024-04-06 14:00 | XMS_ITS | Encounter Summary ---
[place] [address] Care Team Providers Care Medicaid Collection Specialist Name Role Phone Jerel Sofia Garcia APRN Primary Care Provider [phone] Encounter Details Date Type Department Care Team (Late st Contact Info) Description 11/12/2014 8:10 AM EDT - 11/12/2014 11:59 PM EDT Hospital [place] [phone] CLINIC, DR ABE Burrell, Antelmo Porter MD [address] [place] [address] Discharge Disposition: Home Social History Tobacco Use [...] EDT Office Visit Dermatology at [place] [address] [place] [address] Marek Bonilla MD [address], [place] [address] documented as of this encounter Procedures Procedure [...] mLs documented in this encounter Care Teams Medicaid Collection Specialist Relationship Specialty Start Date End Date Sofia Beltrán APRN [address] [place] [address] PCP - General 11/12/14 03/23/16 documented as of this encounter
--- OUTSIDE RECORDS SUMMARY | 2024-04-06 14:00 | XMS_ITS | Encounter Summary ---
Author Organization [facility] [place] [place] [address] Care Team Providers Care Muffler Tender Name Role Phone Deborah Quiroga APRN Primary Care Provider [phone] Encounter Details Date Type Department Care Team (Late st Contact Info) Description 06/09/2016 Orders Only Hematology [place] [address] Nitesh Pina Jr., MD [facility] [address] [place] [address] Cyclical neutropenia Social History Tobacco Use Types [...] 4:15 PM EDT Office Visit Dermatology at [place] [address] [place] [address] Marek Bonilla MD [address] [facility], [place] [address] documented as of this encounter Results * Immunophenotyping Flow Cytometry (06/09/2016 4:53 PM EST) Immunophenotyping Flow See Comment [facility] Comment: When completed by the Pathologist, the Flow Cytometry Report ([id number]) will display under the Pathology Results section within [facility]. Specimen of unknown material (specimen) 06/09/2016 4:53 PM EST 06/09/2016 5:00 PM EST Narrative Resulting Agency Comment Spec In Lab Nitesh Pina Jr., MD HEMATOLOGY ORDERABLE S Performing Organization Address City/State/[facility] Co de Phone Number [facility] [place] [address] documented in this encounter Visit Diagnoses Diagnosis Cyclical neutropenia Cyclic neutropenia documented in this encounter Care Teams Muffler Tender Relationship Specialty Start Date End Date Deborah Quiroga, BOBCAT OPERATOR PCP - General Family Medicine 03/24/16 02/04/23 documented as of this encounter
--- OUTSIDE RECORDS SUMMARY | 2024-04-06 14:00 | XMS_ITS | Encounter Summary ---
Author Organization [facility] [place] [address] Care Team Providers Care Funding Specialist Name Role Phone Deborah Quiroga ANURAG Primary Care Provider [phone] Encounter Details Date Type Department Care Team (Late st Contact Info) Description 07/13/2016 External [place] [address] Provider, Scanning Social History Tobacco Use Types [...] Office Visit Dermatology at [place] [address] [place] [address] Marek Bonilla MD [address], [place] [address] documented as of this encounter Procedures Procedure Name Priority Date/Time Associated Diagnosis Comments SURGICAL PATHOLOGY SCAN Routine 07/13/2016 documented in this encounter Results * Scan Doc: Surgical Pathology (07/13/2016) Nitesh Pina Jr., MD MEDIA MGR SCAN EXT O RDR/RSLT documented in this encounter Visit Diagnoses Not on filedocumented in this encounter Care Teams Funding Specialist Relationship Specialty Start Date End Date Deborah Quiroga APRN PCP - General Family Medicine 03/24/16 02/04/23 documented as of this encounter
--- OUTSIDE RECORDS SUMMARY | 2024-04-06 14:00 | XMS_ITS | Encounter Summary ---
Author Organization [facility] Address [facility] [place] [address] Care Team Providers Care Sheet Metal Duct Installer Name Role Phone Ashley Quirogazac Shields APRN Primary Care Provider [phone] Encounter Details Date Type Department Care Team (Latest Contact Info) Description 06/19/2016 - 06/19/2016 11:59 PM EST Hospital Encounter [place] [address] Nitesh Pina Jr., MD [facility] HEMATOLOGY [place] [address] Pain Discharge Disposition: Home Social History Tobacco [...] 4:15 PM EDT Office Visit Dermatology at [place] [address] [place] [address] Marek Bonilla MD [address], [place] [address] documented as of this encounter Procedures Procedure Name Priority Date/Time Associated Diagnosis Comments FILM LIBRARY STORAGE ONLY CT CHEST ABDOMEN PELVIS Routine 06/19/2016 12:00 AM EST Pain documented in this encounter Results * Film Library- Storage Only CT Chest Abdomen Pelvis (06/19/2016 12:00 AM EST) Narrative [facility] - 06/20/2016 8:53 AM EST This exam is for storage only and is auto-finalizing. Nitesh Pina Jr., MD IMG FILM LIBRARY ORD ERABLES [place], [place] documented in this encounter Visit Diagnoses Diagnosis Pain Generalized pain documented in this encounter Care Teams Sheet Metal Duct Installer Relationship Specialty Start Date End Date Deborah Quiroga APRN PCP - General Family Medicine 03/24/16 02/04/23 documented as of this encounter
--- OUTSIDE RECORDS SUMMARY | 2024-04-06 14:00 | XMS_ITS | Encounter Summary ---
[place] [address] Care Team Providers Care Medical Science Liaison Name Role Phone Deborah Quiroga APRN Primary Care Provider [phone] Encounter Details Date Type Department Care Team (Late st Contact Info) Description 08/04/2016 External Results Hematology [place] [address] Alexandrea Greenwood RN Neutropenia, unspecified type Social [...] EDT Office Visit Dermatology at [place] [address] [place] [address] Marek Bonilla MD [address], [place] [address] documented as of this encounter [...] documented in this encounter Care Teams Medical Science Liaison Relationship Specialty Start Date End Date Deborah Quiroga, FOUNTAIN JERK PCP - General Family Medicine 03/24/16 02/04/23 documented as of this encounter
--- OUTSIDE RECORDS SUMMARY | 2024-04-06 14:00 | XMS_ITS | Encounter Summary ---
[place] [address] Care Team Providers Care Reactor Kettle Operator Name Role Phone Ashley Quirogan Cornelius ANURAG Primary Care Provider [phone] Encounter Details Date Type Department Care Team (Late st Contact Info) Description 03/24/2016 Notes [place] [phone] Alfa Lua Social History Tobacco Use Types [...] assessments completed: Wadsworth Score: 6/6 IADL: 7/7 Station Baggage Porter Strength Trials: 18.4, 15.0, 16.8 (right hand dominant) 5 meter walk test in seconds x3: 4.98, 4.88, 4.45 KCCQol: 98% Alfa Lua documented in this encounter Plan of Treatment Upcoming Encounters Date Type Department Care Team (Late st Contact Info) Description 03/01/2025 4:15 PM EDT Office Visit Dermatology at [place] [address] [facility] [place] [address] Marek Bonilla MD [address] [place] [address] documented as of this encounter Visit Diagnoses Not on filedocumented in this encounter Care Teams Reactor Kettle Operator Relationship Specialty Start Date End Date Deborah Quiroga APRN PCP - General Family Medicine 03/24/16 02/04/23 documented as of this encounter
--- OUTSIDE RECORDS SUMMARY | 2024-04-06 14:00 | XMS_ITS | Encounter Summary ---
Author Organization [facility] Address [facility] [place] [address] Care Team Providers Care Screen Machine Operator Name Role Phone Deborah Quiroga APRN Primary Care Provider Encounter Details Date Type Department Care Team (Late st Contact Info) Description 07/17/2016 9:00 AM EST Office Visit Hematology [place] [address] Markel Borjas MD [facility] [address] HEMATOLOGY [place] [address] Neutropenia, unspecified type Social History Tobacco Use [...] 07/17/2016 9:00 AM EST Hematology Outpatient Clinic [facility] Hematology Outpatient [...] TOUCH PREP, CLOT SECTION, CORE ??BIOPSY); [OSR# [id number], COLLECTED 06/23/2016, 19 SLIDES]: ?1. ??Normocellular marrow [...] a clonal lymphoproliferative or myeloproliferative disorder (OSR# [id number]) Chromosome analysis on the marrow aspirate revealed [...] 24 hour(s)). Labs will be drawn at [facility] next week Imaging As above - [...] leukopenia. Will consi kanwal talking to pt's reproduction machine loader about a switch from ACEI to ARB [...] [facility] [place] [facility] [place] [address] Date: 07/17/16 Patient Name: Purnima Thacker : 1955 Diagnosis: neutropenia Referral to [site]: [facility] Orders: ? Labs: Fax results to . [x] Draw CBC, copper level, CMV PCR, mononucleosis screen on 07/20 Repeat CBC on 07/30 (to measure response of WBC after Neulasta) ? Growth factor: [x] Neulasta 6mg SQ injection x 1 on 07/20/2016 Signature: Markel Borjas MD beeper # [id number] documented in this encounter Plan of Treatment Upcoming Encounters Date Type Department Care Team (Late st Contact Info) Description 03/01/2025 4:15 PM EDT Office Visit Dermatology at [place] [address] [facility] [address] [place] [address] Marek Bonilla MD [address], [place] [address] documented as of this encounter [...] ORDERAB LES Performing Organization Address [facility] Co de Phone Number EXTERNAL LAB * Mononucleosis Screen (07/20/2016 10:30 AM EST) Mononucleosis Screen neg neg - neg EXTERNAL LAB Blood specimen (specimen) 07/20/2016 10:30 AM EST Markel Borjas MD IMMUNOLOGY ORDERAB LES Performing Organization Address [facility] de Phone Number EXTERNAL LAB * Copper, serum (07/20/2016 10:30 AM EST) Pathologist [facility] Copper (NOVEMBER) 1.09 0.75 - 1.45 EXTERNAL LAB Blood specimen (specimen) 07/20/2016 10:30 AM EST Markel Borjas MD LAB SEND OUT ORDER JODIE Performing Organization Address [facility] de Phone Number EXTERNAL LAB * CMV PCR, Quantitative (07/20/2016 10:30 AM EST) Pathologist [facility] CMV PCR,Quantitati ve undetected EXTERNAL LAB Blood specimen (specimen) 07/20/2016 10:30 AM EST Markel Borjas MD MOLECULAR ORDERABL ES Performing Organization Address [facility] Co de Phone Number EXTERNAL [...] type documented in this encounter Care Teams Screen Machine Operator Relationship Specialty Start Date End Date Deborah Quiroga, SHUFFLE BOARD OPERATOR PCP - General Family Medicine 03/24/16 02/04/23 documented as of this encounter
--- OUTSIDE RECORDS SUMMARY | 2024-04-06 14:00 | XMS_ITS | Encounter Summary ---
Author Organization [facility] Address [facility] [place] [address] Care Team Providers Care Collar Tacker Name Role Phone Deborah Quiroga APRN Primary Care Provider [phone] Reason for Visit * Reason Comments Schedule Office Case * Consultation (Routine) - Closed Specialty Diagnoses / Procedures Referred By Contac t Referred To Contact Hematology and Oncology Diagnoses Leukopenia Neutropenia LEUKOPENIA W/NEUTROPENIA Procedures TC PEGFILGRASTIM, 6MG, INJECTION LEUKOPENIA W/NEUTROPENIA Alirio Esparza MD [facility] [place] [address] Mario Alberto Ramos Jr., MD [facility] [address] [place]OLOGY [place] [address] Referral ID Status Reason Start Date Expiration Date V isits Requested Visits Authorized [id number] Closed Consult, Test & Treat 07/17/2016 07/17/2017 1 1 Encounter Details Date Type Department Care Team (Late st Contact Info) Description 06/09/2016 3:00 PM EST Office Visit [place]ematology [place] [address] Mario Alberto Ramos Jr., MD [facility] HEMATOLOGY [place] [address] Cyclical neutropenia Social History Tobacco Use Types [...] 06/09/2016 3:00 PM EST H[facility] [...] Unknown See Comment Flow Cytometry Report Unknown [id number] ... HematoPathology: Flow Cytometry DIAGNOSIS 1. No [...] 4:15 PM EDT Office Visit Dermatology at [place] [address] [facility] [place] [phone] Marek Bonilla MD [address], [place] [address] documented as of this encounter Procedures Procedure [...] (06/09/2016 4:53 PM EST) Flow Cytometry Report [id number] ?Location: The signing pathologist has (i) examined [...] by the Clinical Flow Cytometry Laboratory at [facility]. It has not been cleared or approved [...] high complexity clinical laboratory testing. SPECIMEN PROCESSING [id number] Cells for immunophenotypic analysis were derived from peripheral blood. ??CD45 vs side scatter gating was utilized to identify a lymphoid analysis region that comprises approximately 49-51% of all cells. The following markers were assessed: CD2, CD3, CD4, CD5, CD7, CD8, CD10, CD16, CD19, CD45, CD56, CD57, kappa light chain, and lambda light chain. CLINICAL INFORMATION 60 yo female with neutropenia. LGL panel requested. [facility] 06/09/2016 4:53 PM EST Mario Alberto Ramos Jr., MD PATHOLOGY/CYTOLOGY O RDERABLES [facility] [place] [address] * Scan, Peripheral Blood (06/09/2016 4:53 PM EST) Pathologist [facility] Plat estimate Normal [facility] RBC Morphology Normal [facility] Blood specimen (specimen) 06/09/2016 4:53 PM EST 06/09/2016 5:00 PM EST Narrative Resulting Agency Comment Spec In Lab Mario Alberto Ramos Jr., MD HEMATOLOGY ORDERABLE S Performing Organization Address City/[facility]/ZIP Co de Phone Number [facility] [place] [place] [address] * (ABNORMAL) Differential, Automated (06/09/2016 4:53 PM EST) [facility] Neutrophil % 27.7 % [facility] Neutrophil Absolute 0.48(Crit ical) 1.70 - 6.10 x10(3)/mc L [facility] Comment: Matches Previous Results.. This result has been called to NOT CALLED by Jesusita Argueta on 06 09 2016 at 1817, and has not been read back. MATCHES PREVIOUS RESULTS Lymph % 57.2 % [facility] Lymphocytes Abs 1.0 0.9 - 3.2 x10(3)/mc L [facility] Monocyte % 13.3 % [facility] Monocyte Abs 0.2(L) 0.3 - 0.9 x10(3)/mc L [facility] Eos % 0.6 % [facility] Eosinophils Abs 0.0 0.0 - 0.4 x10(3)/mc L [facility] Basophil % 1.2 % [facility] Baso Absolute 0.0 0.0 - 0.1 x10(3)/mc L [facility] Immature Gran % 0.00 % [facility] Comment: Immature granulocytes(IG's)percentage and absolute count will include metamyelocytes, myelocytes, and promyelocytes. Blood smears from CBCs yielding IG's will be scanned manually for concordance. If this scan disagrees with the automated IG or if promyelocytes are noted, a manual differential will be performed. Immature Gran Absolute 0.00 0.00 - 0.04 x10(3)/mc L [facility] Blood specimen (specimen) 06/09/2016 4:53 PM EST 06/09/2016 5:00 PM EST Narrative Resulting Agency Comment Spec In Lab Mario Alberto Ramos Jr., MD HEMATOLOGY ORDERABLE S Performing Organization Address City/State/[facility] Co de Phone Number [facility] [place] [address] * (ABNORMAL) Hemogram (06/09/2016 4:53 PM EST) White Blood Cell 1.7(Criti gabrielle) 4.0 - 9.5 x10(3)/mc L [facility] Red Blood Cell 3.92(L) 4.00 - 5.21 x10(6)/mc L [facility] Hemoglobin 12.4 11.7 - 15.5 gm/dL [facility] Hematocrit 36.7 35.7 - 45.8 % [facility] Mean Cell Volume 93.6 82.6 - 94.4 fL [facility] Mean Cell Hemoglobin 31.6 27.1 - 32.0 pg [facility] Mean Cell Hemoglobin Concentration 33.8 31.7 - 35.0 gm/dL [facility] Platelet 234 145 - 357 x10(3)/mc L [facility] RDW Standard Deviation 39.8 37.0 - 46.0 fL [facility] RDW coefficient of variation 11.8 11.5 - 14.1 % [facility] Mean Platelet Volume 8.6 7.6 - 12.9 fL [facility] NRBC% auto 0.0 % [facility] NRBC Absolute 0.000 0.000 - 0.000 x10(3)/mc L [facility] Blood specimen (specimen) 06/09/2016 4:53 PM EST 06/09/2016 5:00 PM EST Narrative Resulting Agency Comment Spec In Lab Mario Alberto Ramos Jr., MD HEMATOLOGY ORDERABLE S Performing Organization Address [facility] Co de Phone Number [facility] [place] [address] * Immunophenotyping Flow Cytometry (06/09/2016 4:53 PM EST) Immunophenotyping Flow See Comment [facility] Comment: When completed by the Pathologist, the Flow Cytometry Report ([id number]) will display under the [facility]. Specimen of unknown material (specimen) 06/09/2016 4:53 PM EST 06/09/2016 5:00 PM EST Narrative Resulting Agency Comment Spec In Lab Mario Alberto Ramos Jr., MD HEMATOLOGY ORDERABLE S Performing Organization Address City/[facility] Co de Phone Number [facility] [place] [address] documented in this encounter Visit Diagnoses Diagnosis Cyclical neutropenia Cyclic neutropenia documented in this encounter Care Teams Collar Tacker Relationship Specialty Start Date End Date Deborah Quiroga APRN PCP - General Family Medicine 03/24/16 02/04/23 documented as of this encounter
--- OUTSIDE RECORDS SUMMARY | 2024-04-06 14:00 | XMS_ITS | Encounter Summary ---
[place] [address] Care Team Providers Care Child Day Care Teacher Name Role Phone Deborah Quiroga APRN Primary Care Provider [phone] Reason for Visit * Reason Onset Date Comments Prior Authorization 09/11/2016 Neulasta Encounter Details Date Type Department Care Team (Late st Contact Info) Description 09/11/2016 Telephone Hematology [place] [phone] Monica Wick Prior Authorization (Neulasta ) Social [...] AM EST Prior Auth for Neulasta (Approved) [facility] is a covered facility under the members plan. ID# [id number] Call placed to [phone] Rationale: Can you please start a PA for this pt to receive as outpatient at [facility] on 09/16/16? 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 ??Her last ANC was 0.56 (or 560) on 08/04/16. ??This will need to be approved through her medical as out patient. J code for neulasta. ?? [id number]. Spoke w/ Anna Marie Call Reference [id number] Copay: $ Deductible is not met, patient will have out of pocket costs until deductible is met. documented in this encounter Plan of Treatment Upcoming Encounters Date Type Department Care Team (Late st Contact Info) Description 03/01/2025 4:15 PM EDT Office Visit Dermatology at [place] [address] [facility] [place] [address] Marek Bonilla MD [address], [address] [place] [address] documented as of this encounter Visit Diagnoses Not on filedocumented in this encounter Care Teams Child Day Care Teacher Relationship Specialty Start Date End Date Deborah Quiroga APRN PCP - General Family Medicine 03/24/16 02/04/23 documented as of this encounter
--- OUTSIDE RECORDS SUMMARY | 2024-04-06 14:00 | XMS_ITS | Encounter Summary ---
Author Organization [facility] [place] [address] Care Team Providers Care Bullard Operator Name Role Phone Junaid, Deborah Shields APRN Primary Care Provider [phone] Encounter Details Date Type Department Care Team (Late st Contact Info) Description 05/19/2016 10:00 AM EDT Office [place] [phone] Alirio Esparza MD Nonrheumatic aortic valve stenosis [...] EDT Office Visit Dermatology at [place] [address] [facility] [place] [address] Marek Bonilla MD [address] [facility], [place] [address] documented as of this encounter Results * [...] (Bezet) 448 ms MUSE SYSTEM Calculated P [place] 37 degrees MUSE SYSTEM Calculated R [place] 31 degrees MUSE SYSTEM Calculated T [place] 25 degrees MUSE SYSTEM INTERPRETATION Normal sinus rhythm Normal ECG No previous ECGs available Confirmed by MD Becca, Deangelo ([id number]) on 05/19/2016 5:23:33 PM MUSE SYSTEM 05/19/2016 11:4 3 AM EDT 05/19/2016 5:23 PM EDT Alirio Esparza MD ECG ORDERABLES MUSE SYSTEM * Basic Metabolic Panel (non-fasting) (05/19/2016 11:32 AM EDT) Pathologist [facility] Glucose 86 65 - 199 mg/dL [facility] Comment:Diabetes: >=200 mg/d L plus symptoms Blood Urea Nitrogen 13 8 - 18 mg/dL [facility] Creatinine 0.95 0.70 - 1.20 mg/dL [facility] Comment: Please note that the pediatric reference intervals supplied above were not validated at [facility]. Results from pediatric patients should be interpreted [...] mmol/L [facility] Carbon Dioxide 27 22 - 31 mmol/L [facility] Anion Gap 12 5 - 15 mmol/L [facility] Calcium 10.1 8.5 - 10.5 mg/dL [facility] Est Glomerular Filtration Rate 60 [...] the following links into your internet browser. [email or web address] Blood specimen (specimen) 05/19/2016 11:32 AM EDT 05/19/2016 11:41 AM EDT Narrative Resulting Agency Comment Spec In Lab Alirio Esparza MD CHEMISTRY ORDERABLE S Performing Organization Address City/State/[facility] Co de Phone Number [facility] [place] [address] documented in this encounter Visit Diagnoses Diagnosis Nonrheumatic aortic valve stenosis Aortic valve disorders Nonrheumatic aortic valve stenosis Aortic valve disorders documented in this encounter Care Teams Bullard Operator Relationship Specialty Start Date End Date Deborah Quiroga APRN PCP - General Family Medicine 03/24/16 02/04/23 documented as of this encounter
--- OUTSIDE RECORDS SUMMARY | 2024-04-06 14:00 | XMS_ITS | Encounter Summary ---
[place] [address] Care Team Providers Care Appian Bpm Developer Name Role Phone Ashley Quirogan Cornelius ANURAG Primary Care Provider [phone] Encounter Details Date Type Department Care Team (Late st Contact Info) Description 07/03/2016 External Results Hematology [place] [address] Matthew Cervantes, DO [address] [place] [address] Social History Tobacco Use Types Packs/Day Years [...] EDT Office Visit Dermatology at [place] [address] [facility] [place] [address] Marek Bonilla MD [address] [facility], [place] A DERMATOLOGY [place], [place] [phone] documented as of this encounter Procedures Procedure Name Priority Date/Time Associated Diagnosis Comments BONE MARROW ASPIRATION PERFO RMED WITH BONE MARRROW BIOPSY Routine 06/28/2016 documented in this encounter Results * BONE MARROW ASPIRATION PREFORMED WITH BONE MARRROW BIOPSY (06/28/2016) Matthew Cervantes DO GENERAL SURGI DANIEL ORDERABLES documented in this encounter Visit Diagnoses Not on filedocumented in this encounter Care Teams Appian Bpm Developer Relationship Specialty Start Date End Date Deborah Quiroga, EVENT MGR PCP - General Family Medicine 03/24/16 02/04/23 documented as of this encounter
--- OUTSIDE RECORDS SUMMARY | 2024-04-06 14:00 | XMS_ITS | Encounter Summary ---
[place] [address] Care Team Providers Care Hand Developer Name Role Phone Deborah Quiroga ANURAG Primary Care Provider [phone] Reason for Visit * Reason Onset Date Comments Pre Procedure Call 06/18/2016 Encounter Details Date Type Department Care Team (Late st Contact Info) Description 06/18/2016 Telephone Hematology [place] [address] Alexandrea Greenwood RN Pre Procedure Call Social [...] 4:15 PM EDT Office Visit Dermatology at [place] [address] [facility] [place] [phone] Marek Bonilla MD [address] [place] [address] documented as of this encounter Visit Diagnoses Not on filedocumented in this encounter Care Teams Hand Developer Relationship Specialty Start Date End Date Deborah Quiroga APRN PCP - General Family Medicine 03/24/16 02/04/23 documented as of this encounter
--- OUTSIDE RECORDS SUMMARY | 2024-04-06 14:00 | XMS_ITS | Encounter Summary ---
[place] [address] Care Team Providers Care Store Host Name Role Phone Deborah Quiroga ANURAG Primary Care Provider [phone] Reason for Visit * Reason Onset Date Comments Medical Care Coordination 07/31/2016 Encounter Details Date Type Department Care Team (Late st Contact Info) Description 07/31/2016 Telephone Hematology [place] [address] Alexandrea Greenwood RN Medical Care Coordination Social [...] 08/04/15 RN spoke with Aydee of the [facility] lab who states they can draw pt's cbc on 08/04/15, RN faxed lab req to [phone] at Aydee's request. RN instructed pt on Dr. Borjas's direction above. Pt verbalized understanding. documented in this encounter Plan of Treatment Upcoming Encounters Date Type Department Care Team (Late st Contact Info) Description 03/01/2025 4:15 PM EDT Office Visit Dermatology at [place] [address] [facility] [place] [address] Marek Bonilla MD [address] [place] [address] documented as of this encounter Visit Diagnoses Not on filedocumented in this encounter Care Teams Store Host Relationship Specialty Start Date End Date Deborah Quiroga APRN PCP - General Family Medicine 03/24/16 02/04/23 documented as of this encounter
--- OUTSIDE RECORDS SUMMARY | 2024-04-06 14:00 | XMS_ITS | Encounter Summary ---
[place] [address] Care Team Providers Care Records Analyst Name Role Phone Deborah Quiroga APRN Primary Care Provider [phone] Encounter Details Date Type Department Care Team (Late st Contact Info) Description 08/18/2016 Orders [place] [address] Alirio Esparza MD Aortic valve stenosis, unspecified [...] 4:15 PM EDT Office Visit Dermatology at [place] [address] [facility] [place] [address] Marek Bonilla MD [address] [facility], [place] [address] documented as of this encounter Results * [...] intervals supplied above were not validated at [facility]. Results from pediatric [...] the following links into your internet browser. [email or web address] Blood specimen (specimen) 08/18/2016 4:50 PM EST 08/18/2016 5:03 PM EST Narrative Resulting Agency Comment Spec In Lab Alirio Esparza MD CHEMISTRY ORDERABLE S [facility] [place] [address] documented in this encounter Visit Diagnoses Diagnosis Aortic valve stenosis, unspecified etiology documented in this encounter Care Teams Records Analyst Relationship Specialty Start Date End Date Deborah Quiroga, HEALTH AND WELLNESS SALES CONSULTANT PCP - General Family Medicine 03/24/16 02/04/23 documented as of this encounter
--- OUTSIDE RECORDS SUMMARY | 2024-04-06 14:00 | XMS_ITS | Encounter Summary ---
Author Organization [facility] Address [facility] [place] [address] Care Team Providers Care Stitch Bonding Machine Drawer In Name Role Phone Danni Laird APRN Primary Care Provider +1 [phone] Encounter Details Date Type Department Care Team (Late st Contact Info) Description 01/23/2014 Orders Only Cardiology at [address] [address] Lee Kincaid MD [facility] [place] [address] SOB (shortness of breath) (Primary Dx) Social [...] 4:15 PM EDT Office Visit Dermatology at [place] [address] [facility] [place] [phone] Marek Bonilla MD [address] [facility], TODD A DERMATOLOGY [place], [place] [id number] documented as of this encounter Results * Echocardiogram Transthoracic(Leb) (01/23/2014 3:17 PM EDT) EF 50 HEARTLAB SYSTEM Anatomical Region Laterality Modality Other 01/23/2014 Narrative 01/23/2014 4:35 PM EDT Procedure: ? Transthoracic Echocardiogram Patient: ? ANDREW Mejias ?(Age): 1955(58) Med Rec#: ?[id number] ? Sex: ?F ? Site Loc: ?[facility] ? Ht / Wt: ??158(cm)/93(kg) Pt. Loc: ? Adult Floor ?BSA: ?2.02 Study Date: ?01/23/2014 ? Pt. Type: Inpatient Tape: ? Referring: Lee Kincaid ([id number]) Referring: ANNALISA Conference Translator: Miguel Beverly Diagnosis:CPT Code(s): ??Echo Full (77973), ??Spectral Doppler (47431), Color Doppler (33987), Indication(s): ??Aortic stenosis Rhythm: Sinus HR ?BP [...] ? Mid-Inferior ?Hypokinetic ? Mid-Inferoseptal ?Hypokinetic ? [place]-Septal ? Hypokinetic ? [place]-Anterior ? Hypokinetic ? [place]-Lateral ?Hypokinetic ? [place]-Inferior ? Hypokinetic ? [place]-Tip ?Hypokinetic ? Chambers ?Value ?Units (Range) ? [...] Patient: ANDREW Mejias (Age): 1955(58) Med Rec#: [id number] Sex: F Site Loc: [facility] Ht / Wt: 158(cm)/93(kg) Pt. Loc: Adult Floor BSA: 2.02 Study Date: 01/23/2014 Pt. Type: Inpatient Tape: Referring: Lee Kincaid ([id number]) Referring: ANNALISA Conference Translator: Miguel Beverly Diagnosis:CPT Code(s): Echo Full (06970), Spectral Doppler (86117), Color Doppler (04706), Indication(s): Aortic stenosis Rhythm: Sinus HR BP [...] Hypokinetic Mid-Posterolateral Hypokinetic Mid-Inferior Hypokinetic Mid-Inferoseptal Hypokinetic [place]-Septal Hypokinetic [place]-Anterior Hypokinetic [place]-Lateral Hypokinetic [place]-Inferior Hypokinetic [place]-Tip Hypokinetic Chambers Value Units (Range) IVSd 2D [...] breath documented in this encounter Care Teams Stitch Bonding Machine Drawer In Relationship Specialty Start Date End Date Danni Laird APRN [address] [place] [address] PCP - General 01/23/14 11/11/14 documented as of this encounter
--- OUTSIDE RECORDS SUMMARY | 2024-04-06 14:00 | XMS_ITS | Encounter Summary ---
Author Organization [facility] [place] [address] Care Team Providers Care It Security Specialist Name Role Phone Junaid Deborah Shields APRN Primary Care Provider [phone] Encounter Details Date Type Department Care Team (Latest Contact Info) Description 05/19/2016 11:20 AM EDT Laboratory [place] [phone] Nonrheumatic aortic valve stenosis Social History Tobacco [...] EDT Office Visit Dermatology at [place] [address] [facility] [address] [place] [phone] Marek Bonilla MD [address] [facility] [address], [place] [address] documented as of this encounter Procedures Procedure [...] Peripheral Blood (05/19/2016 11:32 AM EDT) Pathologist [facility] Plat estimate Normal [facility] RBC Morphology Normal [facility] Blood specimen (specimen) 05/19/2016 11:32 AM EDT 05/19/2016 11:41 AM EDT Narrative Resulting Agency Comment Spec In Lab Alirio Esparza MD HEMATOLOGY ORDERABL ES [facility] [place] [place] [address] * (ABNORMAL) Differential, Automated (05/19/2016 11:32 AM EDT) [facility] Neutrophil % 25.9 % [facility] Neutrophil Absolute 0.42(Crit ical) 1.70 - 6.10 x10(3)/mc L [facility] Comment: This result has been called to DR ALIRIO ESPARZA by Alivia Ibarra on 05 19 2016 at 1228, and has been read back. Lymph % 59.9 % [facility] Lymphocytes Abs 1.0 0.9 - 3.2 x10(3)/mc L [facility] Monocyte % 13.0 % [facility] Monocyte Abs 0.2(L) 0.3 - 0.9 x10(3)/[facility] Eos % 0.6 % [facility] Eosinophils Abs 0.0 0.0 - 0.4 x10(3)/ L [facility] Basophil % 0.6 % [facility] Baso Absolute 0.0 0.0 - 0.1 x10(3)/[facility] Immature Gran % 0.00 % [facility] Comment: Immature granulocytes(IG's)percentage and absolute count will include metamyelocytes, myelocytes, and promyelocytes. Blood smears from CBCs yielding IG's will be scanned manually for concordance. If this scan disagrees with the automated IG or if promyelocytes are noted, a manual differential will be performed. Immature Gran Absolute 0.00 0.00 - 0.04 x10(3)/[facility] Blood specimen (specimen) 05/19/2016 11:32 AM EDT 05/19/2016 11:41 AM EDT Narrative Resulting Agency Comment Spec In Lab Alirio Esparza MD HEMATOLOGY ORDERABL ES [facility] [place] [address] * (ABNORMAL) Hemogram (05/19/2016 11:32 AM EDT) White Blood Cell 1.6(Criti gabrielle) 4.0 - 9.5 x10(3)/ L [facility] Comment: This result has been called to DR ALIRIO ESPARZA by Alivia Ibarra on 05 19 2016 at 1228, and has been read back. Red Blood Cell 3.96(L) 4.00 - 5.21 x10(6)/mc L [facility] Hemoglobin 12.5 11.7 - 15.5 gm/dL [facility] Hematocrit 37.9 35.7 - 45.8 % [facility] Mean Cell Volume 95.7(H) 82.6 - 94.4 fL [facility] Mean Cell Hemoglobin 31.6 27.1 - 32.0 pg [facility] Mean Cell Hemoglobin Concentration 33.0 31.7 - 35.0 gm/dL [facility] Platelet 227 145 - 357 x10(3)/mc L [facility] RDW Standard Deviation 40.5 37.0 - 46.0 fL [facility] RDW coefficient of variation 11.5 11.5 - 14.1 % [facility] Mean Platelet Volume 8.4 7.6 - 12.9 fL [facility] NRBC% auto 0.0 % [facility] NRBC Absolute 0.000 0.000 - 0.000 x10(3)/mc L [facility] Blood specimen (specimen) 05/19/2016 11:32 AM EDT 05/19/2016 11:41 AM EDT Narrative Resulting Agency Comment Spec In Lab Alirio Esparza MD HEMATOLOGY ORDERABL ES Performing Organization Address City/State/[facility] Co de Phone Number [facility] [place] [address] * Antibody screen (05/19/2016 11:32 AM EDT) Ab Screen Interp Negative [facility] Expires at [id number] on: 07/03/2016 [facility] Comment: Corrected from 06/11/16 12:00 [Unknown] on 06/09/16 05:51 by Bethanie Tomlinson I.. Corrected from 07/03/16 12:00 [Unknown] on 05/21/16 06:00 by Shelia Barrera Blood specimen (specimen) 05/19/2016 11:32 AM EDT 05/19/2016 11:35 AM EDT Narrative Resulting Agency Comment Spec In Lab Alirio Esparza MD BLOOD BANK LAB ORDSylvia ALEJO [facility] [place] [address] * ABO/Rh Typing (05/19/2016 11:32 AM EDT) ABORH Type B Pos [facility] Blood specimen (specimen) 05/19/2016 11:32 AM EDT 05/19/2016 11:35 AM EDT Narrative Resulting Agency Comment Spec In Lab Alirio Esparza MD BLOOD BANK LAB BETH ALEJO Performing Organization Address City/[facility]/ZIP Co de Phone Number [facility] [place] [address] * Basic Metabolic Panel (non-fasting) (05/19/2016 11:32 AM EDT) Pathologist [facility] Glucose 86 65 - 199 mg/dL [facility] Comment:Diabetes: >=200 mg/d L plus symptoms Blood Urea Nitrogen 13 8 - 18 mg/dL [facility] Carbon Dioxide 27 22 - 31 mmol/L [facility] Anion Gap 12 5 - 15 mmol/L [facility] Calcium 10.1 8.5 - 10.5 mg/dL [facility] Est Glomerular Filtration Rate 60 >=60 [facility] Comment: This [...] the following links into your internet browser. [email or web address] Blood specimen (specimen) 05/19/2016 11:32 AM EDT 05/19/2016 11:41 AM EDT Narrative Resulting Agency Comment Spec In Lab Alirio Esparza MD CHEMISTRY ORDERABLE S [facility] [place] [id number] documented in this encounter Visit Diagnoses Diagnosis Nonrheumatic aortic valve stenosis Aortic valve disorders documented in this encounter Care Teams It Security Specialist Relationship Specialty Start Date End Date Deborah Quiroga APRN PCP - General Family Medicine 03/24/16 02/04/23 documented as of this encounter
--- OUTSIDE RECORDS SUMMARY | 2024-04-06 14:00 | XMS_ITS | Encounter Summary ---
Author Organization [facility] Address [facility] [place] [address] Care Team Providers Care 3D Animator Name Role Phone Deborah Quiroga APRN Primary Care Provider [phone] Encounter Details Date Type Department Care Team (Late st Contact Info) Description 06/16/2016 Orders Only Hematology [place] [address] Nitesh Pina Jr., MD [facility] [address] [place] [address] Cyclical neutropenia Social History Tobacco Use Types [...] PM EDT Office Visit Dermatology at [place] [address] [facility] [place] [address] Marek Bonilla MD [address] DERMATOLOGY [place], [place] [address] documented as of this encounter Visit Diagnoses Diagnosis Cyclical neutropenia Cyclic neutropenia documented in this encounter Care Teams 3D Animator Relationship Specialty Start Date End Date Deborah Quiroga APRN PCP - General Family Medicine 03/24/16 02/04/23 documented as of this encounter
--- OUTSIDE RECORDS SUMMARY | 2024-04-06 14:00 | XMS_ITS | Encounter Summary ---
[place] [address] Care Team Providers Care Entry Level Sales Associate Name Role Phone Deborah Quiroga ANURAG Primary Care Provider [phone] Encounter Details Date Type Department Care Team (Late st Contact Info) Description 07/31/2016 Orders Only Hematology [place] [address] Alexandrea Greenwood RN Neutropenia, unspecified type Social [...] 4:15 PM EDT Office Visit Dermatology at [place] [address] [facility] [place] [phone] Marek Bonilla MD [address] [facility], [place] [address] documented as of this encounter Results * [...] type documented in this encounter Care Teams Entry Level Sales Associate Relationship Specialty Start Date End Date Deborah Quiroga, LUMBER TALLIER PCP - General Family Medicine 03/24/16 02/04/23 documented as of this encounter
--- OUTSIDE RECORDS SUMMARY | 2024-04-06 14:00 | XMS_ITS | Encounter Summary ---
[place] [address] Care Team Providers Care Lawyer Criminal Name Role Phone Deborah Quiroga ANURAG Primary Care Provider [phone] Encounter Details Date Type Department Care Team (Late st Contact Info) Description 07/22/2016 External Results Hematology [place] [address] Alexandrea Greenwood RN Neutropenia, unspecified type Social [...] 4:15 PM EDT Office Visit Dermatology at [place] [address] [place] [address] Marek Bonilla MD [address], [place] [address] documented as of this encounter Procedures Procedure Name Priority Date/Time Associated Diagnosis Comments COPPER, SERUM Routine 07/20/2016 10:30 AM EST Neutropenia, unspecified type CMV PCR, QUANTITATIVE Routine 07/20/2016 10:30 AM EST Neutropenia, unspecified type MONONUCLEOSIS SCREEN (APD/JEANNINE/[facility]) Routine 07/20/2016 10:30 AM EST Neutropenia, unspecified type CBC (WITH DIFF) Routine 07/20/2016 10:30 AM EST Neutropenia, unspecified type documented in this encounter Results * Copper, serum (07/20/2016 10:30 AM EST) Copper (NOVEMBER) 1.09 0.75 - 1.45 EXTERNAL LAB Blood specimen (specimen) 07/20/2016 10:30 AM EST Markel Borjas MD LAB SEND OUT ORDER JODIE Performing Organization Address [facility] Co de Phone Number EXTERNAL LAB * CMV PCR, Quantitative (07/20/2016 10:30 AM EST) CMV PCR,Quantitati ve undetected EXTERNAL LAB Blood specimen (specimen) 07/20/2016 10:30 AM EST Markel Borjas MD MOLECULAR ORDERABL ES Performing Organization Address [facility] Co de Phone Number EXTERNAL LAB * Mononucleosis Screen (07/20/2016 10:30 AM EST) Mononucleosis Screen neg neg - neg EXTERNAL LAB Blood specimen (specimen) 07/20/2016 10:30 AM EST Markel Borjas MD IMMUNOLOGY ORDERAB LES Performing Organization Address [facility] Co de Phone Number EXTERNAL LAB [...] type documented in this encounter Care Teams Lawyer Criminal Relationship Specialty Start Date End Date Deborah Quiroga, PATIENT CENTERED CARE SPECIALIST PCP - General Family Medicine 03/24/16 02/04/23 documented as of this encounter
--- OUTSIDE RECORDS SUMMARY | 2024-04-06 14:00 | XMS_ITS | Encounter Summary ---
Author Organization [facility] [place] [address] Care Team Providers Care Grain Merchandiser Name Role Phone Junaid Deborah Shields APRN Primary Care Provider [phone] Encounter Details Date Type Department Care Team (Latest Contact Info) Description 08/18/2016 4:40 PM EST [place] [phone] Aortic valve stenosis, unspecified etiology Social History [...] 4:15 PM EDT Office Visit Dermatology at [place] [address] [place] [phone] Marek Bonilla MD [address] [facility], [place] [address] documented as of this encounter Procedures Procedure [...] Esparza MD BLOOD BANK LAB BETH SHANNONROMERO [facility] [place] [address] * Antibody screen (08/18/2016 4:50 PM EST) [...] Esparza MD BLOOD BANK LAB ORDSylvia ORTEGAROMERO [facility] [place] [address] * ABO/Rh Typing (08/18/2016 4:50 PM EST) ABORH Type B Pos [facility] Blood specimen (specimen) 08/18/2016 4:50 PM EST 08/18/2016 5:11 PM EST Narrative Resulting Agency Comment Spec In Lab Alirio Esparza MD BLOOD BANK LAB BETH ALEJO Lidia Organization Address City/State/ZIP Co de Phone Number [facility] [place] [address] * Basic Metabolic Panel (non-fasting) (08/18/2016 4:50 PM EST) Glucose 82 65 - 199 mg/dL [facility] Est Glomerular Filtration Rate >60 >=60 [facility] Comment: [...] the following links into your internet browser. [email or web address] Blood specimen (specimen) 08/18/2016 4:50 PM EST 08/18/2016 5:03 PM EST Narrative Resulting Agency Comment Spec In Lab Alirio Esparza MD CHEMISTRY ORDERABLE S Performing Organization Address City/State/[facility] Co de Phone Number [facility] [place] [address] documented in this encounter Visit Diagnoses Diagnosis Aortic valve stenosis, unspecified etiology documented in this encounter Care Teams Grain Merchandiser Relationship Specialty Start Date End Date Deborah Quiroga, COMMUNITY HEALTH PROGRAM REPRESENTATIVE PCP - General Family Medicine 03/24/16 02/04/23 documented as of this encounter
--- OUTSIDE RECORDS SUMMARY | 2024-04-06 14:00 | XMS_ITS | Encounter Summary ---
Author Organization [facility] [place] [address] Care Team Providers Care Angiographer Name Role Phone Deborah Quiroga APRN Primary Care Provider [phone] Encounter Details Date Type Department Care Team (Late st Contact Info) Description 07/31/2016 External Results Hematology [place] [address] Alexandrea Greenwood RN Neutropenia, unspecified type Social [...] 4:15 PM EDT Office Visit Dermatology at [place] [address] [place] [phone] Marek Bonilla MD [address] [facility] [address], [place] [address] documented as of this encounter Procedures Procedure [...] type documented in this encounter Care Teams Angiographer Relationship Specialty Start Date End Date Deborah Quiroga, FURNITURE UPHOLSTERY MECHANIC PCP - General Family Medicine 03/24/16 02/04/23 documented as of this encounter
--- OUTSIDE RECORDS SUMMARY | 2024-04-06 14:00 | XMS_ITS | Encounter Summary ---
Author Organization [facility] Address [facility] [place] [address] Care Team Providers Care Veneer Matcher Name Role Phone Ashley Quirogan Cornelius ANURAG Primary Care Provider [phone] Encounter Details Date Type Department Care Team (Late st Contact Info) Description 08/11/2016 Telephone Hematology [place] [phone] Markel Borjas MD [facility] [address] [place] [address] Social History Tobacco Use Types Packs/Day Years [...] EDT Office Visit Dermatology at [place] [address] [place] [address] Marek Bonilla MD [address], [place] [address] documented as of this encounter Visit Diagnoses Not on filedocumented in this encounter Care Teams Veneer Matcher Relationship Specialty Start Date End Date Deborah Quiroga APRN PCP - General Family Medicine 03/24/16 02/04/23 documented as of this encounter
--- OUTSIDE RECORDS SUMMARY | 2024-04-06 14:00 | XMS_ITS | Encounter Summary ---
Author Organization [facility] [place] [address] Care Team Providers Care Instructor Painting Name Role Phone Deborah Quiroga APRN Primary Care Provider [phone] Encounter Details Date Type Department Care Team (Latest Contact Info) Description 07/10/2016 2:54 PM EST - 07/10/2016 11:59 PM EST Hospital [place] [phone] Discharge Disposition: Home Social History Tobacco Use [...] 4:15 PM EDT Office Visit Dermatology at [place] [address] [place] [address] Marek Bonilla MD [address] [facility] [address] [address] documented as of this encounter Procedures Procedure Name Priority Date/Time Associated Diagnosis Comments BONE MARROW FINAL REPORT Routine 07/10/2016 3:43 PM EST documented in this encounter Results * Bone Marrow Final Report (07/10/2016 3:43 PM EST) Final Diagnosis [id number] ?Location: [facility] The signing pathologist has (i) examined the relevant preparation(s) for the specimen(s) and (ii) rendered or confirmed the diagnosis(es). . ? Bone Marrow Final DIAGNOSIS BONE MARROW (PERIPHERAL SMEAR, ASPIRATE SMEAR, TOUCH PREP, CLOT SECTION, CORE BIOPSY); [OSR# [id number], COLLECTED 06/23/2016, 19 SLIDES]: ?? 1. ??Normocellular [...] clonal lymphoproliferative or myeloproliferative ? disorder (OSR# [id number]) ?Chromosome analysis on the marrow aspirate revealed a normal female karyotype; ?46,XX[25] ??(OSR# [id number]) Electronically signed by: ??Elian Guillen MD Verified: [...] 3/uL Band/Seg 0.52 x103/uL; Lymph 0.75 x103/uL; Routt 0.15 x103/uL; Eos 0.01%; Baso 0.01 x10 [...] plasma cells represent 3-4% of the cellularity [place] ? Polytypic plasma cell staining, high background Lambda ?Polytypic plasma cell staining, high background Block: ? B2 (Core biopsy 2) Fixative: ?? Formalin ANTIBODY: ?? RESULT/COMMENT CD3 ? Scattered small lymphocytes and lymphoid aggregates highlighted CD20 ?Few scattered small lymphocytes stain ( ?? <CD3 in aggregates) CD138 ? Scattered plasma cells represent 3-4% of the cellularity [place] ? Polytypic plasma cell staining, high background Lambda ?Polytypic plasma cell staining, high background Note: The immunoperoxidase stains reported above were developed and their performance characteristics determined by [facility]. ??They have not been cleared [...] CONSULTATION CASE A - 19 slides labeled [id number], collection date 06/23/2016. [id number] Report to: [facility] Surgical Pathology Department [facility], [facility], 2nd Floor [address] [place], [place] ??[address] 07/13/2016 11:[address] [facility] Consult Case 07/10/2016 3:43 PM EST 07/10/2016 3:43 PM EST Nitesh Pian Jr., MD PATHOLOGY/CYTOLOGY O RDERABLES Performing Organization Address City/State/[facility] Co de Phone Number [facility] [place] [address] documented in this encounter Visit Diagnoses Not on filedocumented in this encounter Care Teams Instructor Painting Relationship Specialty Start Date End Date Deborah Quiroga, ANURAG PCP - General Family Medicine 03/24/16 02/04/23 documented as of this encounter
--- OUTSIDE RECORDS SUMMARY | 2024-04-06 14:00 | XMS_ITS | Encounter Summary ---
Author Organization Counts Include [facility] Address [facility] [place] [address] Care Team Providers Care Kennel Operator Name Role Phone JunaidAshley hargrovezac Shields APRN Primary Care Provider [phone] Reason for Visit * Auth/Cert Specialty Diagnoses / Procedures Referred By Crispin t Referred To Contact Diagnoses AVS Procedures CARDIAC CATHETERIZATION Referral ID Status Reason Start Date Expiration Date Visits Re quested Visits Authorized [id number] 1 1 Encounter Details Date Type Department Care Team (Late st Contact Info) Description 06/03/2016 6:32 AM EDT - 06/03/2016 1:10 PM EDT Hospital Encounter [place] [phone] Anjum Oliveros II, MD [facility] [place] [address] Mario Alberto Escobedo MD [facility] [place] [address] Aortic valve stenosis, unspecified etiology; Nonrheumatic aortic [...] by your doctor, do not take any hcka-dbz-rzzyuag medicinesor herbal preparations without first discussing this with your doctor or pharmacist. There is the possibility of side effects and interactions when these are combined. Follow Up Care Who to call with questions or problems If there are any questions or problems that you think might be related to your cardiac cath or angioplasty, contact the certified composites technician rayon tester by calling [facility] at . * Patient Instructions* Felicia Corrigan - 06/03/2016 9:33 AM EDT Cardiology Instructions Call your doctor if: Chest pain, dyspnea, pain or swelling in legs occurs. If you have non-emergent questions between now and the time of your follow up appointments: -During 8am-5pm Wednesday through Wednesday call [phone] to speak with a nurse in the cardiology clinic -All other times call [phone] and ask to speak to the orthopedics teacher rayon tester. MEDICATIONS - restart your spironolactone, discontinue [...] Primary care provider: Cardiology: Deborah Hahn, QUALITY ENG [phone] Follow up as planned or as needed. Dr. Esparza [phone] Other follow-up appointment: Hematology - Dr. Mario [...] EDT Office Visit Dermatology at [place] [address] [place] [address] Marek Bonilla MD [address] Katherine DERMATOLOGY [place], [place] [id number] documented as of this encounter Procedures Procedure [...] Green Tube HOLD (06/03/2016 11:45 AM EDT) [facility] Green Hold Sample in lab. [facility] Blood specimen (specimen) Venous Draw / Unknown 06/03/2016 11:45 AM EDT 06/03/2016 12:12 PM EDT Mario Alberto Escobedo MD CHEMISTRY ORDERABLES Performing Organization Address [facility] Co de Phone Number [facility] [place] [address] * Methylmalonic acid, serum (06/03/2016 11:45 AM EDT) [facility] Methylmalonic Acid (NOVEMBER) 0.21 <=0.40 nmol/mL [facility] Comment: Test Performed by: [place] [address] Associate Software Engineer: Raymond Chaudhry II, M.D., Ph.D. Blood specimen (specimen) 06/03/2016 11:45 AM EDT 06/03/2016 1:57 PM EDT Narrative Resulting Agency Comment Spec In Lab Mario Alberto Escobedo MD LAB SEND OUT ORDERAB LES Performing Organization Address [facility] Co de Phone Number [facility] [place] [address] * Granulocyte Antibody (06/03/2016 11:45 AM EDT) [facility] Granulocyte Ab (NOVEMBER) Negative Not Applicable [facility] Comment: ADDITIONAL INFORMATION Method: Immunofluorescent Assay Performing Laboratory CLIA# [id number] This test was developed and its performance characteristics determined by [facility] in a manner consistent with CLIA requirements. This test has not been cleared or approved by the U.S. Food and Drug Administration. Test Performed by: [facility] - [address] [address] Associate Software Engineer: Raymond Chaudhry II, M.D., Ph.D. Blood specimen (specimen) 06/03/2016 11:45 AM EDT 06/03/2016 1:57 PM EDT Narrative Resulting Agency Comment Spec In Lab Mario Alberto Escobedo MD LAB SEND OUT ORDERAB LES Performing Organization Address [facility] Co de Phone Number [facility] [place] [address] * TSH (06/03/2016 11:45 AM EDT) Thyroid Stimulating Hormone 2.18 0.27 - 4.20 mcIU/mL [facility] Blood specimen (specimen) 06/03/2016 11:45 AM EDT 06/03/2016 12:11 PM EDT Narrative Resulting Agency Comment Spec In Lab Mario Alberto Escobedo MD CHEMISTRY ORDERABLES Performing Organization Address [facility] Co de Phone Number [facility] [place] [address] * Homocysteine Total, Plasma (06/03/2016 11:45 AM EDT) Homocystine 9 <=15 mcmol/L [facility] Blood specimen (specimen) 06/03/2016 11:45 AM EDT 06/03/2016 12:11 PM EDT Narrative Resulting Agency Comment Spec In Lab Mario Alberto Escobedo MD CHEMISTRY ORDERABLES Performing Organization Address [facility] Co de Phone Number [facility] [place] [address] * Folate, serum (06/03/2016 11:45 AM EDT) Folate >20.0 4.8 - 24.2 ng/mL [facility] Blood specimen (specimen) 06/03/2016 11:45 AM EDT 06/03/2016 12:04 PM EDT Narrative Resulting Agency Comment Spec In Lab Mario Alberto Escobedo MD CHEMISTRY ORDERABLES Performing Organization Address [facility] Co de Phone Number [facility] [place] [address] * (ABNORMAL) Sedimentation rate (06/03/2016 11:45 AM EDT) Pathologist [facility] Sedimentation Rate Automated 41(H) 0 - 20 mm/hr [facility] Blood specimen (specimen) 06/03/2016 11:45 AM EDT 06/03/2016 12:04 PM EDT Narrative Resulting Agency Comment Spec In Lab Mario Alberto Escobedo MD HEMATOLOGY ORDERABLE S Performing Organization Address [facility] Co de Phone Number [facility] [place] [address] * Lactate Dehydrogenase (06/03/2016 11:45 AM EDT) Lactate Dehydrogenase 164 110 - 220 unit/L [facility] Blood specimen (specimen) 06/03/2016 11:45 AM EDT 06/03/2016 12:11 PM EDT Narrative Resulting Agency Comment Spec In Lab Mario Alberto Escobedo MD CHEMISTRY ORDERABLES Performing Organization Address [facility] Co de Phone Number [facility] [place] [address] * Comprehensive metabolic panel (non-fasting) (06/03/2016 11:45 [...] validated at [facility] [place]. Results from pediatric patients [...] the following links into your internet browser. [email or web address] Blood specimen (specimen) 06/03/2016 11:45 AM EDT 06/03/2016 12:11 PM EDT Narrative Resulting Agency Comment Spec In Lab Mario Alberto Escobedo MD CHEMISTRY ORDERABLES [facility] [place] [address] documented in this encounter Visit Diagnoses Diagnosis [...] Hernandez) documented in this encounter Care Teams Kennel Operator Relationship Specialty Start Date End Date Deborah Quiroga, QUALITY ENG PCP - General Family Medicine 03/24/16 02/04/23 documented as of this encounter
--- OUTSIDE RECORDS SUMMARY | 2024-04-06 14:00 | XMS_ITS | Encounter Summary ---
[place] [address] Care Team Providers Care Senior Research Fellow Name Role Phone Deborah Quiroga ANURAG Primary Care Provider [phone] Encounter Details Date Type Department Care Team (Late st Contact Info) Description 09/11/2016 Orders Only [place]ology [place] [address] Alexandrea Greenwood RN Social History [...] the original note were not included. N [facility] HEM ONC [facility] [phone] Date: 09/11/16 Patient Name: Purnima Thackre : 1955 Diagnosis: Neutropenia Referral to [site]: [facility] Orders: ? Growth factor: [x] Neulasta 6mg SQ injection x 1 on 09/16/16 Signature: Markel Borjas MD beeper # [id number] Co-signature [if needed]: documented in this encounter Plan of Treatment Upcoming Encounters Date Type Department Care Team (Late st Contact Info) Description 03/01/2025 4:15 PM EDT Office Visit Dermatology at [place] [address] [place] [address] Marek Bonilla MD [address] Katherine [place] [address] documented as of this encounter Procedures Procedure Name Priority Date/Time Associated Diagnosis Comments TRANSESOPHAGEAL ECHOCARDIOGRAM (GAVINO) Routine 09/22/2016 documented in this encounter Results * Transesophageal Echocardiogram (GAVINO) (09/22/2016) Anatomical Region Laterality Modality Other 09/22/2016 Narrative 09/22/2016 8:30 AM EST Procedure: ?Transesophageal Echocardiogram Patient: ?ANDREW ECHOLS M ? (Age): 1955(61y) Med Rec#: ? [id number] ?Sex: ?M ? Site Loc: ? [facility] ?Ht / Wt: ??(cm)/ (kg) ? Pt. Loc: ?OR ? Study Date: ?? 09/21/2016 ?Pt. Type: Tape: ? Referring: Alirio Francisco Reading: Henrik Yarbrough ([id number]) Sales Counselor: Jacobo Patel ([id number]) Interpreting Fellow: Jacobo Patel ([id number]) Diagnosis: *Aortic valve disorders (424.1) CPT Codes: *Echo GAVINO Full (77864) Indication: ?? AVR for severe Rhythm: ? [...] ? Mid-Inferior ?Normal ? Mid-Inferoseptal ?Normal ? [place]-Septal ? Normal ? [place]-Anterior ? Normal ? [place]-Lateral ?Normal ? [place]-Inferior ? Normal ? [place]-Tip ?Normal ? This report has been electronically signed by: Henrik Yarbrough M.D. ? 09/22/2016 08:30:41 Images reviewed and interpretation verified [facility] Cardiac Ultrasound Laboratory Procedure Note Henrik Yarbrough MD - 09/22/2016 Procedure: Transesophageal Echocardiogram Patient: ANDREW Mejias (Age): 1955(61y) Med Rec#: [id number] Sex: M Site Loc: [facility] Ht / Wt: (cm)/ (kg) Pt. Loc: OR Study Date: 09/21/2016 Pt. Type: Tape: Referring: Alirio Francisco Reading: Henrik Yarbrough ([id number]) Sales Counselor: Jacobo Patel ([id number]) Interpreting Fellow: Jacobo Patel ([id number]) Diagnosis: *Aortic valve disorders (424.1) CPT Codes: *Echo GAVINO Full (32233) Indication: AVR for severe Rhythm: Sinus SUMMARY: [...] Normal Mid-Posterolateral Normal Mid-Inferior Normal Mid-Inferoseptal Normal [place]-Septal Normal [place]-Anterior Normal [place]-Lateral Normal [place]-Inferior Normal [place]-Tip Normal This report has been electronically signed by: Henrik Yarbrough M.D. 09/22/2016 08:30:41 Images reviewed and interpretation verified [facility] Cardiac Ultrasound Laboratory Unknown ECHO ORDERABLES documented in this encounter Visit Diagnoses Not on filedocumented in this encounter Care Teams Senior Research Fellow Relationship Specialty Start Date End Date Deborah Quiroga APRN PCP - General Family Medicine 03/24/16 02/04/23 documented as of this encounter
--- OUTSIDE RECORDS SUMMARY | 2024-04-06 14:00 | XMS_ITS | Encounter Summary ---
[place] [address] Care Team Providers Care Manufacturing Engineering Professor Name Role Phone Deborah Quiroga ANURAG Primary Care Provider [phone] Reason for Visit * Reason Onset Date Comments Medical Care Coordination 07/17/2016 Encounter Details Date Type Department Care Team ([facility] Contact Info) Description 07/17/2016 Telephone Hematology [place] [phone] Alexandrea Greenwood RN Medical Care Coordination Social [...] 07/17/2016 12:07 PM EST Message received from medical office secretary: Injection/Infusion Referral Call placed to [phone]). Spoke w/ Pasquale. Services to be provided for pt are: Labs @ 10am ([facility]) & Neulasta @ 11am on 07/20/16, CBC only on 07/30/16 Pasquale confirmed they would provide services to pt and I left [facility] for pt to call for appt info. Pt demographics, office note, med list and orders faxed to [facility] & [facility] documented in this encounter Plan of Treatment Upcoming Encounters Date Type Department Care Team (Late st Contact Info) Description 03/01/2025 4:15 PM EDT Office Visit Dermatology at [place] [address] [place] [address] Marek Bonilla MD [address] [place] [address] documented as of this encounter Visit Diagnoses Not on filedocumented in this encounter Care Teams Manufacturing Engineering Professor Relationship Specialty Start Date End Date Deborah Quiroga APRN PCP - General Family Medicine 03/24/16 02/04/23 documented as of this encounter
--- OUTSIDE RECORDS SUMMARY | 2024-04-06 14:00 | XMS_ITS | Encounter Summary ---
Author Organization [facility] Address [facility] [place] [address] Care Team Providers Care Oil Pumper Name Role Phone Deborah Quiroga APRN Primary Care Provider [phone] Encounter Details Date Type Department Care Team (Latest Contact Info) Description 05/19/2016 11:52 AM EDT - 05/19/2016 11:59 PM EDT Hospital Encounter XRay at [address] [place] [address] Alirio Esparza MD Nonrheumatic aortic valve stenosis [...] 4:15 PM EDT Office Visit Dermatology at [place] [address] [place] [address] Marek Bonilla MD [address] [place] [address] documented as of this encounter Procedures Procedure [...] disorders documented in this encounter Care Teams Oil Pumper Relationship Specialty Start Date End Date Deborah Quiroga, FACILITY WORKER PCP - General Family Medicine 03/24/16 02/04/23 documented as of this encounter
--- OUTSIDE RECORDS SUMMARY | 2024-04-06 14:01 | XMS_ITS | Encounter Summary ---
Author Organization [facility] [place] [address] Care Team Providers Care Tool Room Attendant Name Role Phone Eitan Danni ANURAG Primary Care Provider Encounter Details Date Type Department Care Team (Late st Contact Info) Description 01/23/2014 9:25 AM EDT - 01/23/2014 10:25 AM EDT Surgery [place] [address] Alan Jacobson MD [facility] [place] [address] CARDIAC CATHETERIZATION Social History Tobacco Use Types [...] by your doctor, do not take any usss-bwt-grtxguz medicines or herbal preparations without first discussing this with your doctor or pharmacist. There is the possibility of side effect and interactions when these are combined. Follow up Care Who to Call with Questions or Problems If there are any questions or problems that you think might be related to your cardiac cath or angioplasty, contact the color dipper train station agent by calling [facility] at . documented in [...] 4:15 PM EDT Office Visit Dermatology at [place] [address] [place] [address] Marek Bonilla MD [address] Katherine [place] [address] documented as of this encounter Procedures Procedure Name Priority Date/Time Associated Diagnosis Comments ECHOCARDIOGRAM TRANSTHORACIC Routine 01/23/2014 3:17 PM EDT SOB (shortness of breath) documented in this encounter Results * Echocardiogram Transthoracic(Leb) (01/23/2014 3:17 PM EDT) Pathologist N-1-1 EF 50 HEARTReferrizer SYSTEM Anatomical Region Laterality Modality Other 01/23/2014 Narrative 01/23/2014 4:35 PM EDT Procedure: ? Transthoracic Echocardiogram Patient: ? ANDREW ECHOLS M ?(Age): 1955(58) Med Rec#: ?[id number] ? Sex: ?F ? [place] [place] Ht / Wt: ??158(cm)/93(kg) Pt. Loc: ? Adult Floor ?BSA: ?2.02 Study Date: ?01/23/2014 ? Pt. Type: Inpatient Tape: ? Referring: Lee Kincaid ([id number]) Referring: ANNALISA House Supervisor: Miguel Beverly Diagnosis:CPT Code(s): ??Echo Full (64274), ??Spectral Doppler (43711), Color Doppler (37100), Indication(s): ??Aortic stenosis Rhythm: Sinus HR ?BP [...] ? Mid-Inferior ?Hypokinetic ? Mid-Inferoseptal ?Hypokinetic ? [place]-Septal ? Hypokinetic ? [place]-Anterior ? Hypokinetic ? [place]-Lateral ?Hypokinetic ? [place]-Inferior ? Hypokinetic ? [place]-Tip ?Hypokinetic ? Chambers ?Value ?Units (Range) ? [...] Images reviewed and interpretation verified [facility] Cardiac Ultrasound Laboratory Procedure Note Lee Kincaid MD - 01/23/2014 Procedure: Transthoracic Echocardiogram Patient: ANDREW Mejias (Age): 1955(58) Med Rec#: [id number] Sex: F [place] [facility] Ht / Wt: 158(cm)/93(kg) Pt. Loc: Adult Floor BSA: 2.02 Study Date: 01/23/2014 Pt. Type: Inpatient Tape: Referring: Lee Kincaid ([id number]) Referring: [facility] House Supervisor: Miguel Beverly Diagnosis:CPT Code(s): Echo Full (17301), Spectral Doppler (87099), Color Doppler (43712), Indication(s): Aortic stenosis Rhythm: Sinus HR BP [...] Hypokinetic Mid-Posterolateral Hypokinetic Mid-Inferior Hypokinetic Mid-Inferoseptal Hypokinetic [place]-Septal Hypokinetic [place]-Anterior Hypokinetic [place]-Lateral Hypokinetic [place]-Inferior Hypokinetic [place]-Tip Hypokinetic Chambers Value Units (Range) IVSd 2D [...] Images reviewed and interpretation verified [facility] Cardiac Ultrasound Laboratory Lee [...] (New Bag - Prov ider: Katelynn Parr, AVLDO) sodium chloride 0.9% infusion (CANCELED) 100 mL/hr, [...] documented in this encounter Care Teams Tool Room Attendant Relationship Specialty Start Date End Date Danni Laird APRN [address] [place] [address] PCP - General 01/23/14 11/11/14 documented as of this encounter
--- OUTSIDE RECORDS SUMMARY | 2024-04-06 14:01 | XMS_ITS | Encounter Summary ---
Author Organization [facility] Address [facility] [place] [address] Care Team Providers Care Action Finisher Name Role Phone Mitchell Wilkes MD Primary Care Provider [phone] Encounter Details Date Type Department Care Team (Late st Contact Info) Description 01/19/2014 Orders Only Cardiology at [address] [address] Chele Randolph, [place] [address] [address] [place] [address] Cardiomyopathy (Primary Dx) Social History Tobacco Use [...] EDT Office Visit Dermatology at [place] [address] [place] [address] Marek Bonilla MD [address] [place] [address] documented as of this encounter Procedures Procedure [...] cardiomyopathies documented in this encounter Care Teams Action Finisher Relationship Specialty Start Date End Date Mitchell Wilkes MD [facility] PCP - General 06/24/10 01/19/14 documented as of this encounter
--- OUTSIDE RECORDS SUMMARY | 2024-04-06 14:01 | XMS_ITS | Encounter Summary ---
Author Organization [facility] [address] Care Team Providers Care Master Coastwise Yacht Name Role Phone EitanDanni ANURAG Primary Care Provider [phone] Encounter Details Date Type Department Care Team (Late st Contact Info) Description 01/22/2014 Telephone Cardiology at [address] [phone] Cynthia Arrington LPN Social History Tobacco Use [...] LPN - 01/23/2014 2:39 PM EDT This curriculum writer did not receive a call back [...] 4:15 PM EDT Office Visit Dermatology at [place] [address] [place] [address] Marek Bonilla MD [address] [place] [address] documented as of this encounter Visit Diagnoses Not on filedocumented in this encounter Care Teams Master Coastwise Yacht Relationship Specialty Start Date End Date Danni Laird APRN [address] [place] [address] PCP - General 01/23/14 11/11/14 documented as of this encounter
--- OUTSIDE RECORDS SUMMARY | 2024-04-06 14:01 | XMS_ITS | Encounter Summary ---
Author Organization [facility] Address [facility] [place] [address] Care Team Providers Care Chuck Wagon Driver Name Role Phone EitanMagnusDanni ANURAG Primary Care Provider [phone] Encounter Details Date Type Department Care Team (Latest Contact Info) Description 01/23/2014 7:45 AM EDT - 01/23/2014 5:50 PM EDT Hospital Encounter [place] [address] Alan Jacobson MD [facility] [place] [address] Cardiomyopathy; SOB (shortness of breath) Discharge Disposition: [...] by your doctor, do not take any rupq-kfx-dxguuun medicines or herbal preparations without first discussing this with your doctor or pharmacist. There is the possibility of side effect and interactions when these are combined. Follow up Care Who to Call with Questions or Problems If there are any questions or problems that you think might be related to your cardiac cath or angioplasty, contact the loop machine operator early intervention school psychologist by calling [facility] at . documented in [...] 4:15 PM EDT Office Visit Dermatology at [place] [address] [place] [address] Marek Bonilla MD [address] Katherine [place] [address] documented as of this encounter Procedures Procedure [...] ANDREW ECHOLS M ?(Age): 1955(58) Med Rec#: ?[id number] ? Sex: ?F ? Site Loc: ?[facility] ? Ht / Wt: ??158(cm)/93(kg) Pt. Loc: ? Adult Floor ?BSA: ?2.02 Study Date: ?01/23/2014 ? Pt. Type: Inpatient Tape: ? Referring: Lee Kincaid ([id number]) Referring: ANNALISA Skip Locator: Miguel Beverly Diagnosis:CPT Code(s): ??Echo Full (04751), ??Spectral Doppler (04881), Color Doppler (02050), Indication(s): ??Aortic stenosis Rhythm: Sinus HR ?BP [...] ? Mid-Inferior ?Hypokinetic ? Mid-Inferoseptal ?Hypokinetic ? [place]-Septal ? Hypokinetic ? [place]-Anterior ? Hypokinetic ? [place]-Lateral ?Hypokinetic ? [place]-Inferior ? Hypokinetic ? [place]-Tip ?Hypokinetic ? Chambers ?Value ?Units (Range) ? [...] 01/23/2014 16:34:37 Images reviewed and interpretation verified [facility] Cardiac Ultrasound Laboratory Procedure Note Lee Kincaid MD - 01/23/2014 Procedure: Transthoracic Echocardiogram Patient: ANDREW Mejias (Age): 1955(58) Med Rec#: [id number] Sex: F Site Loc: [facility] Ht / Wt: 158(cm)/93(kg) Pt. Loc: Adult Floor BSA: 2.02 Study Date: 01/23/2014 Pt. Type: Inpatient Tape: Referring: Lee Kincaid ([id number]) Referring: ANNALISA Skip Locator: Miguel Beverly Diagnosis:CPT Code(s): Echo Full (64572), Spectral Doppler (36099), Color Doppler (75107), Indication(s): Aortic stenosis Rhythm: Sinus HR BP [...] Hypokinetic Mid-Posterolateral Hypokinetic Mid-Inferior Hypokinetic Mid-Inferoseptal Hypokinetic [place]-Septal Hypokinetic [place]-Anterior Hypokinetic [place]-Lateral Hypokinetic [place]-Inferior Hypokinetic [place]-Tip Hypokinetic Chambers Value Units (Range) IVSd 2D [...] 01/23/2014 16:34:37 Images reviewed and interpretation verified [facility] Cardiac Ultrasound Laboratory Lee [...] RN) documented in this encounter Care Teams Chuck Wagon Driver Relationship Specialty Start Date End Date Danni Laird APRN [address] [place] [address] PCP - General 01/23/14 11/11/14 documented as of this encounter
--- OUTSIDE RECORDS SUMMARY | 2024-04-06 14:01 | XMS_ITS | Encounter Summary ---
[place] [address] Care Team Providers Care Manufacturing Supervisor Name Role Phone Mitchell Wilkes MD Primary Care Provider [phone] Reason for Visit * Reason Onset Date Comments Other 01/18/2014 Encounter Details Date Type Department Care Team (Late st Contact Info) Description 01/18/2014 Telephone Cardiology at [address] [address] Jesusita Graces Other Social History Tobacco Use Types Packs/Day [...] PM EDT Office Visit Dermatology at [address] [address] Marek Bonilla MD [address] [place] [address] RD, [place] [address] documented as of this encounter Visit Diagnoses Not on filedocumented in this encounter Care Teams Manufacturing Supervisor Relationship Specialty Start Date End Date Mitchell Wilkes MD [facility] PCP - General 06/24/10 01/19/14 documented as of this encounter
--- OUTSIDE RECORDS SUMMARY | 2024-04-11 14:16 | XMS_ITS | Encounter Summary ---
Author Organization [facility] Address [address] [place] [address] Care Team Providers Care Seam Stay Stitcher Name Role Phone Scott Ashley WILLIAM Primary Care Provider Encounter Details Date Type Department Care Team (Late st Contact Info) Description 05/12/2019 Results Only [facility] [phone] Nadira Gregorio MD [address] [place] [phone] Social History Tobacco Use Types Packs/Day [...] ? 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 Accession #: ? [id number] ? : ? 1955 (Age: 63) ??F ? Collect Date: ? 05/12/2019 ? Location: ? [facility] ? Receive Date: ? 05/12/2019 ? Provider: NADIRA GREGORIO MD Copy to: WINTER HANKINS ROCKET ENGINE TESTER ? Final Pathologic Diagnosis: COLON, CECUM, POLYP, [...] (ASCP) 05/12/2019 6:08 PM End of Report [facility] 05/12/2019 16:0 3 EDT 05/12/2019 16:03 EDT Nadira Gregorio MD PATHOLOGY ORDERABLES [facility] [address] [place] [address] documented in this encounter Visit Diagnoses Not on filedocumented in this encounter Care Teams Seam Stay Stitcher Relationship Specialty Start Date End Date Ashley Chavez ARNP [address] [place] [address] PCP - General 07/11/10 documented as of this encounter
--- OUTSIDE RECORDS SUMMARY | 2024-04-11 14:16 | XMS_ITS | Referral Summary ---
Author Organization [facility] Address [address] [place] [address] Care Team Providers Care Traffic Signal Repairer Name Role Phone Ashley Chavez Primary Care Provider [phone] Encounters Date Type Department Care Team Description 03/22/2024 Lab Requisition [facility] Pathology & Laboratory [address] [address] Consuelo Guerrero, DO Diaphragmatic hernia without obstruction or gangrene; Anemia, unspecified 03/21/2024 Lab Requisition [facility] Pathology & Laboratory [address] [address] Consuelo Guerrero DO Encounter for other general examination 03/21/2024 Lab Requisition [facility] Pathology & Laboratory [address] [address] Outr Resulting Lab, Provider from Last 3 [...] 13:00 EDT) LORY Negative 03/21/2024 22:31 EDT [facility] Blood VENOUS BLOOD / Unknown 03/21/2024 13:00 EDT 03/21/2024 21:51 EDT Consuelo Guerrero DO BLOOD BANK TESTS Performing Organization Address [facility] Co de Phone Number [facility] [address] [place] [address] * HAPTOGLOBIN (03/21/2024 13:00 EDT) Haptoglobin 183 32 - 197 mg/dL 03/22/2024 10:25 EDT [facility] Blood VENOUS BLOOD / Unknown 03/21/2024 13:00 EDT 03/21/2024 21:50 EDT Provider Outr Resulting Lab CHEMISTRY & BLOOD GAS ORDERABLES Performing Organization Address [facility] Co de Phone Number [facility] [address] [place] [address] * SURGICAL PATHOLOGY (03/21/2024 11:35 EDT) Note to Patient The following pathology results have been interpreted by your pathologist and may be available to you before your health provider has had the opportunity to review them. Please allow time for your provider to receive these results and explore management options, if applicable. 03/24/2024 10:36 EDT [facility] Final Diagnosis A. [...] - Deeper sections x3 examined. 03/24/2024 10:36 [facility] Attestation There was significant resident/fellow involvement in the diagnostic evaluation of this case. By the signature below, the attending physician certifies that they have personally conducted a gross and/or microscopic examination of the described specimens and rendered or confirmed the above diagnosis. 03/24/2024 10:36 [facility] at [address] Clinical History Anemia, hiatal hernia, 38 cm aguayo diverticulosis 03/24/2024 10:36 [facility] Gross Description A. Received in [...] Luis Torres 03/22/2024 9:36 03/24/2024 10:36 EDT [facility] Resident/Estuardo w: Luis Felipe Bragg DO 03/24/2024 10:36 EDT [facility] Performing Lab [facility] 10:36 EDT [facility] Scanned Images 03/24/2024 10:36 EDT [facility] Tissue POLYP OF [...] 8:19 EDT Consuelo Guerrero DO PATHOLOGY ORDERABLES [facility] [address] [place] [address] from Last 3 Months Care Teams Traffic Signal Repairer Relationship Specialty Start Date End Date Ashley Chavez ARNP [address] [place] [address] PCP - General 07/11/10
--- OUTSIDE RECORDS SUMMARY | 2024-04-11 14:16 | XMS_ITS | Encounter Summary ---
[place] [address] Care Team Providers Care Clinic Business Manager Name Role Phone Magdalena Acosta MD Primary Care Provider [phone] Encounter Details Date Type Department Care Team [...] EDT Office Visit Dermatology at [place] [address] [facility] [place] [address] Marek Bonilla MD [address], TODD A DERMATOLOGY [place], [place] [id number] documented as of this encounter Visit Diagnoses Not on filedocumented in this encounter Care Teams Clinic Business Manager Relationship Specialty Start Date End Date Magdalena Acosta MD [address] [place] [address] PCP - General Family Medicine 02/05/23 documented as of this encounter
--- OUTSIDE RECORDS SUMMARY | 2024-04-11 14:16 | XMS_ITS | Clinical Summary ---
Author Organization [facility] Address [facility] [place] [address] Care Team Providers Care Sba Underwriter Name Role Phone Magdalena cAosta MD Primary Care Provider [phone] Allergies No known active allergies Medications Medication [...] 05/08/2023 Mild coronary artery disease by [facility] 11/09/2022 Heart failure with reduced e [...] Encounters Date Type Department Care Team Description 04/11/2024 Transcribe Orders eDH Incoming Referrals [phone] Consuelo Guerrero, DO Anemia, unspecified type 03/01/2024 Telephone Cardiology at [address] [address] Cynthia Monsalve RN Pre Procedure Call (DAPT hold for EGD and colo?) 02/22/2024 4:15 PM EDT Office Visit Dermatology at [address] [place] [address] Marek Bonilla MD Seborrheic keratosis; Rosacea; Nevus [...] PM EDT Office Visit Dermatology at [address] [place] [address] Marek Bonilla MD [address] [place] [address], [place] [address] Health Maintenance Due Date Last Done Comments [...] Share Decision Needed 1995 Advance Directive 2010 Breast Cancer screening 06/05/2023 06/05/2021, 06/05 Covid-19 Vaccine (1 - 2022-2 4 season) 2024 Influenza (Flu) vaccine (1 o f 1 - Influenza standard series) 04/02/2024 05/22/2023, 05/18/2016 Diabetes Screening (HgbA1C o r Glucose) 07/08/2026 07/08/2023, 05/22/2023, 05/21/2023, Additional history exists Bone Density Scan 06/05/2036 06/05/2021 Medical Devices Implanted Type Area Coordinator Of Rehabilitation Services Device Identifier Shelf Expiration Date Model / Serial / Lot Valve,Aor,Pericar d,Magna,25mm ([id number]) - [id number] Implanted:Qty: 1 on 09/21/2016 by Alirio Esparza MD at [facility] IMPLANTS N/A: Heart DO NOT USE [employer] - [id number] 06/02/2020 [id number] / / [id number] Cable,Blnt,Ss,38i n ([id number]) - [id number] Implanted:Qty: 4 on 09/21/2016 by Alirio Esparza MD at [facility] IMPLANTS N/A: Chest [employer] - [id number] 04/29/2021 [id number] / / [id number] Patch,Cav,Pericar d,2x5cm ([id number]) (Autoreq) - [id number] Implanted:Qty: 1 on 09/21/2016 by Alirio Esparza MD at [facility] IMPLANTS N/A: Heart DO NOT USE [employer] - [id number] 04/21/2018 [id number] / / [id number] Tavr-05/12/2023 Implanted:Qty: 1 on 05/12/2023 by Antelmo Sharma MD Other Heart [employer] - JAIME LI [id number] / [id number] / Description:[employer] NCES ABBY 3 ULTRA [...] EST) Glucose 93 65 - 199 mg/dL [facility] Comment:Diabetes: >=200 mg/d L plus symptoms Blood Urea Nitrogen 19(H) 8 - 18 mg/dL [facility] Creatinine 0.81 0.70 - 1.20 mg/dL [facility] Sodium 142 135 - 145 mmol/L [facility] Potassium 3.8 3.5 - 5.0 mmol/L [facility] Comment: Please note: ??Patients with WBC >100,000 may have falsely elevated Potassium levels. ??For accurate Potassium quantification in these patients send serum separator tube (gold top) for subsequent determinations. ??Contact the Clinical Chemistry Laboratory if there are any questions. Chloride 104 98 - 107 mmol/L [facility] Carbon Dioxide 26 22 - 31 mmol/L [facility] Anion Gap 12 5 - 15 mmol/L [facility] Calcium 10.2 8.5 - 10.5 mg/dL [facility] Protein, Total 7.4 6.1 - 8.0 g/dL [facility] Albumin 4.1 3.2 - 5.2 g/dL [facility] Aspartate Aminotransferase 24 0 - 30 unit/L [facility] Alanine Aminotransferase 12 0 - 30 unit/L [facility] Alkaline Phosphatase 93 35 - 105 unit/L [facility] Bilirubin, Total 0.3 0.2 - 1.3 mg/dL [facility] Est Glomerular Filtration Rate 80 >=60 mL/min/1. 73 m?? [facility] [...] Lab Alirio Esparza MD CHEMISTRY ORDERABLE S [facility] [place] [address] * DXA Central Spine, Hip, and/or Whole Body (Generic) (06/05/2021 11:58 AM EDT) PT CLASS O RAD ADMITDTTM RAD PT RAD INFO [id number]^E VERETT^DEBORAH ^E RAD EXAM DESC XDXAC^DEXA SCAN [...] have questions please contact the health residential care officer that requested your imaging first. ? Electronically signed by: Rocael Villatoro MD, [facility] ([phone]), at 06/05/2021 12:00 PM Narrative 06/05/2021 12:00 [...] who have questions please contactthe health residential care officer that requested your imaging first. Electronically signed by: Rocael Villatoro MD, [facility]([phone]), at 06/05/2021 12:00 PM Deborah Quiroga A/C TECH IMG DEXA ORDERABLES * Mammo Screening Cad Bilateral (06/05/2021 11:42 AM EDT) PT CLASS O DH RAD ADMITDTTM RAD PT RAD INFO [id number]^EV ERETT^DEBORAH^E DH RAD EXAM DESC MADDSC^SCREEN MAMMO [...] have questions please contact the health residential care officer that requested your imaging first. ? Electronically signed by: Rocael Villatoro MD, [facility] ([phone]), at 06/05/2021 1:27 PM Narrative 06/05/2021 1:27 [...] who have questions please contactthe health residential care officer that requested your imaging first. Electronically signed by: Rocael Villatoro MD, [facility]([phone]), at 06/05/2021 1:27 PM Deborah Quiroga APRN [...] capacity to make decision: Yes Care Teams Sba Underwriter Relationship Specialty Start Date End Date Magdalena Acosta MD [address] [place] [address] PCP - General Family Medicine 02/05/23
--- OUTSIDE RECORDS SUMMARY | 2024-04-11 14:16 | XMS_ITS | Encounter Summary ---
Author Organization [facility] [address] Care Team Providers Care Chemical Engineering Teacher Name Role Phone Magdalena Acosta MD Primary Care Provider [phone] Encounter Details Date Type Department Care Team (Late st Contact Info) Description 12/02/2023 11:15 AM EDT [place] [address] Magdalena Peralta MD [facility] [place] [address] Mixed connective tissue disease Social History Tobacco [...] 1:5120 speckled; VIC negative; Myositis panel with INSPECTOR TOOL ab 149.1 (positive); Anti U1RNP IgG 119; [...] list of questions that she sent via [facility] ahead of her visit, which [...] exposure. She has an appointment with her Nutrition And Dietetics Instructor scheduled in January. (Dr Bonilla in [place]) ROS (positives in bold): Gen: no fevers, [...] but I encouraged her to contact her Nutrition And Dietetics Instructor to see if she could have her [...] Dr. Tanisha Peralta MD Rheumatology Fellow Pager: [phone] * Federico Yee MD - 12/02/2023 11:15 [...] 4:15 PM EDT Office Visit Dermatology at [place] [address] [place] [address] Marek Bonilla MD [address] [facility] [place] [address] Scheduled Orders Name Type Priority Associated Diagnoses Orde r Schedule EKG 12 Lead ECG Routine Mixed connective tissue disease Expected: 12/02/2023, Expires: 06/03/2024 documented as of this encounter Visit Diagnoses Diagnosis Mixed connective tissue disease Other specified diffuse disease of connective tissue documented in this encounter Care Teams Chemical Engineering Teacher Relationship Specialty Start Date End Date Magdalena Acosta MD [address] [place] [address] PCP - General Family Medicine 02/05/23 documented as of this encounter
--- OUTSIDE RECORDS SUMMARY | 2024-04-11 14:16 | XMS_ITS | Encounter Summary ---
Author Organization [facility] Address [address] [place] [address] Care Team Providers Care Drilling Rig Operator Name Role Phone Ashley Chavez Primary Care Provider [phone] Encounter Details Date Type Department Care Team (Late st Contact Info) Description 03/21/2024 Lab Requisition [facility] Pathology & Laboratory Medicine - [address] [address] Outr Resulting Lab, Provider Social History Tobacco [...] 32 - 197 mg/dL 03/22/2024 10:25 EDT [facility] Blood VENOUS BLOOD / Unknown 03/21/2024 13:00 EDT 03/21/2024 21:50 EDT Provider Outr Resulting Lab CHEMISTRY & BLOOD GAS ORDERABLES [facility] [address] [place] [address] documented in this encounter Visit Diagnoses Not on filedocumented in this encounter Care Teams Drilling Rig Operator Relationship Specialty Start Date End Date Ahsley Chavez ARNP [address] [place] [address] PCP - General 07/11/10 documented as of this encounter
--- OUTSIDE RECORDS SUMMARY | 2024-04-11 14:16 | XMS_ITS | Encounter Summary ---
Author Organization [place] [address] Care Team Providers Care Hair Spinning Machine Operator Name Role Phone Magdalena Acosta MD Primary Care Provider [phone] Reason for Visit * Reason Comments Aortic Stenosis Coronary Artery Disease Hypertension Encounter Details Date Type Department Care Team (Latest Contact Info) Description 11/16/2023 11:40 AM EDT TH Visit (TeleHealth) Cardiology at [address] [address] Jay Maza PA [facility] [place] [address] Aortic valve stenosis, etiology of cardiac valve disease unspecified; Coronary artery disease, unspecified vessel or lesion type, unspecified whether angina present, unspecified whether [place] or transplanted heart Social History Tobacco Use Types Packs/Day Years Used Date Smoking Tobacco: Never Smokeless Tobacco: Never Alcohol Use Standard Drinks/Week Comments No 0 (1 standard drink = 0.6 oz pur e alcohol) none [facility] Inpatient Questions Answer Date Recorded Does [...] from the original note were not included. [facility] Interventional Cardiology CARDIOLOGY TELE VISIT NOTE 11/16/23 Patient: Purnima Thacker Prior to the initiation of our discussion, the risks and benefits of tele health visits were discussed, and the patient consented verbally to this being a virtual telehealth visit in lieu of an in person office visit. CARDIOLOGISTS: Antelmo Sharma MD ([facility] Cards) Maria Luz Mejia MD ([facility] Cards - [facility]) Problem List: Aortic valve stenosis: prior [...] fraction I35.0 Mild coronary artery disease by [facility] 11/09/2022 I25.10 Heart failure with reduced ejection fraction due to heart valve disease I50.20, I38 Cardiogenic shock R57.0 S/P TAVR (transcatheter aortic valve replacement) Z95.2 HPI: Purnima Thacker is a 68 y.o. year old female who is interviewed via telephone for routine follow up discussion now 3 months after successful transfemoral Valve - in - valve TAVR, 23mm Brtitney 3 inside 25mm surgical bioprosthesis from 2016. [...] notable for coronary artery protection given low rmkcz-ac-iaqgasva distance. There was no obstruction post Valve [...] had a very reassuring recent echo in [facility], in scanned docs. LVEF 55%. Valve [...] leads Confirmed by MD Harshil, Haris Bell ([id number]) on 05/10/2023 8:11:46 AM Cardiac Cath 11/09/2022 [...] in one year. EKATERINA Thompson Time spent: 6840TQL0 0-5min 1098RTG1 6-10min 6666IHR8 11-15min x 6980PRB0 16-20min 0169TMT4 21-30min 4218KLG0 31-40min 2612OTI8 40+ min Jay Maza PA-C Interventional Cardiology [facility] Pager [phone] documented in this encounter Plan of Treatment Upcoming Encounters Date Type Department Care Team (Late st Contact Info) Description 03/01/2025 4:15 PM EDT Office Visit Dermatology at [address] [place] [address] Marek Bonilla MD [address] [facility] [place] [address] documented as of this encounter Visit Diagnoses Diagnosis Aortic valve stenosis, etiology of cardiac valve disease unspecified Coronary artery disease, unspecified vessel or lesion type, unspecified whether angina present, unspecified whether [place] or transplanted heart documented in this encounter Care Teams Hair Spinning Machine Operator Relationship Specialty Start Date End Date Magdalena Acosta MD [address] [place] [address] PCP - General Family Medicine 02/05/23 documented as of this encounter
--- OUTSIDE RECORDS SUMMARY | 2024-04-11 14:16 | XMS_ITS | Encounter Summary ---
Author Organization [facility] Address [address] [place] [address] Care Team Providers Care Cylinder Honer Name Role Phone Ashley Chavez Primary Care Provider [phone] Encounter Details Date Type Department Care Team (Late st Contact Info) Description 04/29/2022 Lab Requisition [facility] Pathology & Laboratory Medicine - [address] [address] Outr Resulting Lab, Provider Social History Tobacco [...] 1.6 <20.0 Units 04/30/2022 12:23 EDT [facility] Comment: ? Negative: [...] SEROLOGY ORDERABLES Performing Organization Address [facility] Phone Number [facility] [address] [place] [address] * SSA ANTIBODIES BY DOMO (04/29/2022 7:51 EDT) SSA Antibody 1.5 <20.0 Units 04/30/2022 12:22 EDT [facility] Comment: ? Negative: [...] ND SEROLOGY ORDERABLES Performing Organization Address [facility] Phone Number [facility] [address] [place] [address] documented in this encounter Visit Diagnoses Not on filedocumented in this encounter Care Teams Cylinder Honer Relationship Specialty Start Date End Date Ashley Chavez ARNP [address] [place] [address] PCP - General 07/11/10 documented as of this encounter
--- OUTSIDE RECORDS SUMMARY | 2024-04-11 14:16 | XMS_ITS | Encounter Summary ---
Author Organization [facility] Address [address] [place] [address] Care Team Providers Care Industrial Organization Manager Name Role Phone Ashley Chavez Primary Care Provider [phone] Encounter Details Date Type Department Care Team (Late st Contact Info) Description 05/12/2022 Lab Requisition [facility] Pathology & Laboratory Medicine - [address] [address] Outr Resulting Lab, Provider Social History Tobacco [...] 14:32 EDT) Hold Hold 05/12/2022 22:46 EDT [facility] Blood VENOUS BLOOD / Unknown 05/12/2022 14:32 EDT 05/12/2022 21:40 EDT Provider Outr Resulting Lab LAB INFO SER VICE AND SUPPORT & PHONE RESULT Performing Organization Address [facility]/ZIP Co de Phone Number [facility] [address] [place] [address] * (ABNORMAL) HOMOCYSTEINE (05/12/2022 14:32 EDT) Homocysteine 14.7(H) 5.0 - 13.9 umol/L 05/13/2022 9:05 EDT [facility] Comment:Results may be false ly elevated if sample is not collected on ice or is not removed from cells within 1 hour of collection. Blood VENOUS BLOOD / Unknown 05/12/2022 14:32 EDT 05/12/2022 21:40 EDT Narrative [facility] - 05/13/2022 9:05 [...] & BLOOD GAS ORDERABLES Performing Organization Address [facility] Co de Phone Number [facility] [address] [place] [address] * HAPTOGLOBIN (05/12/2022 14:32 EDT) Pathologist [facility] Haptoglobin 138 32 - 197 mg/dL 05/13/2022 9:55 EDT [facility] Blood VENOUS BLOOD / Unknown 05/12/2022 14:32 EDT 05/12/2022 21:36 EDT Provider Outr Resulting Lab CHEMISTRY & BLOOD GAS ORDERABLES Performing Organization Address [facility] Co de Phone Number [facility] [address] [place] [address] * (ABNORMAL) ANTI NUCLEAR AB (FRANCISCO), IFA (05/12/2022 14:32 EDT) FRANCISCO Interpretation Positive(A) Negative 05/13/2022 14:44 EDT [facility] Comment: Result is [...] Pattern 1 1:5120 Speckled 05/13/2022 14:44 EDT [facility] Blood VENOUS BLOOD / Unknown 05/12/2022 14:32 EDT 05/12/2022 21:36 EDT Narrative [facility] - 05/13/2022 14:44 EDT Results were obtained with the INOVA NOVA Lite HEp-2 FRANCISCO Kit by indirect immunofluorescence. Provider Outr Resulting Lab IMMUNOLOGY A ND SEROLOGY ORDERABLES [facility] [address] [place] [address] documented in this encounter Visit Diagnoses Not on filedocumented in this encounter Care Teams Industrial Organization Manager Relationship Specialty Start Date End Date Ashley Chavez ARNP [address] [place] [address] PCP - General 07/11/10 documented as of this encounter
--- OUTSIDE RECORDS SUMMARY | 2024-04-11 14:16 | XMS_ITS | Encounter Summary ---
Author Organization [facility] Address [address] [place] [address] Care Team Providers Care Dinkey Mechanic Name Role Phone Unavailable Primary Care Provider Unavailabl e Encounter Details Date Type Department Care Team (Late st Contact Info) Description 07/08/2010 Results Only [facility] - [facility] [address] [place] [address] Ashley Chavez, WILLIAM [address] [place] [address] Social History Tobacco Use Types Packs/Day Years [...] ? 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 Accession #: ? [id number] ? : ? 1955 (Age: 54) ??F [...] Ashley THOMAS PATHOLOGY ORDERABLES PAUL ARELLANO [address] [place] [address] documented in this encounter Visit Diagnoses Not on filedocumented in this encounter
--- OUTSIDE RECORDS SUMMARY | 2024-04-11 14:16 | XMS_ITS | Encounter Summary ---
Author Organization [facility] Address [address] [place] [address] Care Team Providers Care Shrinking Machine Operator Name Role Phone Unavailable Primary Care Provider Unavailabl e Encounter Details Date Type Department Care Team (Late st Contact Info) Description 07/08/2010 10:55 EST - 07/08/2010 10:56 EST Hospital Encounter [facility] - Other [address] [place] [address] Ashley Chavez, WILLIAM [address] [place] [address] Discharge Disposition: Home or Self Care Social [...]
--- OUTSIDE RECORDS SUMMARY | 2024-04-11 14:16 | XMS_ITS | Clinical Summary ---
Author Organization [facility] Address [address] [place] [address] Care Team Providers Care Mask Design Engineer Name Role Phone Ashley Chavez Primary Care Provider [phone] Encounters Date Type Department Care Team Description 03/22/2024 Lab Requisition [facility] Pathology & Laboratory [address] [address] Consuelo Guerrero, DO Diaphragmatic hernia without obstruction or gangrene; Anemia, unspecified 03/21/2024 Lab Requisition [facility] Pathology & Laboratory [address] [address] Consuelo Guerrero, DO Encounter for other general examination 03/21/2024 Lab Requisition [facility] Pathology & Laboratory [address] [address] Outr Resulting Lab, Provider from Last 3 [...] DO BLOOD BANK TESTS Performing Organization Address [facility] Co de Phone Number [facility] BLOOD BANK [address] [place] [address] * HAPTOGLOBIN (03/21/2024 13:00 EDT) Haptoglobin 183 32 - 197 mg/dL 03/22/2024 10:25 EDT [facility] Blood VENOUS BLOOD / Unknown 03/21/2024 13:00 EDT 03/21/2024 21:50 EDT Provider Outr Resulting Lab CHEMISTRY & BLOOD GAS ORDERABLES Performing Organization Address [facility]/ZIP Co de Phone Number [facility] [address] [place], [place] [address] * SURGICAL PATHOLOGY (03/21/2024 11:35 EDT) Note to Patient The following pathology results have been interpreted by your pathologist and may be available to you before your health provider has had the opportunity to review them. Please allow time for your provider to receive these results and explore management options, if applicable. 03/24/2024 10:36 EDT [facility] Final Diagnosis A. JEJUNUM, [...] - Deeper sections x3 examined. 03/24/2024 10:36 [facility] Attestation There was significant resident/fellow involvement in the diagnostic evaluation of this case. By the signature below, the attending physician certifies that they have personally conducted a gross and/or microscopic examination of the described specimens and rendered or confirmed the above diagnosis. 03/24/2024 10:36 [facility] SERVICES at 1036 Clinical History Anemia, hiatal hernia, 38 cm aguayo diverticulosis 03/24/2024 10:36 [facility] Gross Description A. [...] Luis Torres 03/22/2024 9:36 03/24/2024 10:36 EDT [facility] Resident/Estuardo w: Luis Felipe Bragg DO 03/24/2024 10:36 EDT [facility] Performing Lab [facility] 10:36 EDT [facility] Scanned Images 03/24/2024 10:36 EDT [facility] Tissue POLYP OF COLON [...] 8:19 EDT Consuelo Guerrero DO PATHOLOGY ORDERABLES [facility]ORY SERVICES [address] [place] [address] from Last 3 Months Care Teams Mask Design Engineer Relationship Specialty Start Date End Date Ashley Chavez ARNP [address] [place] [address] PCP - General 07/11/10
--- OUTSIDE RECORDS SUMMARY | 2024-04-11 14:16 | XMS_ITS | Encounter Summary ---
Author Organization [facility] [place] [address] Care Team Providers Care Folder Inspector Name Role Phone Magdalena Acosta MD Primary Care Provider [phone] Reason for Referral * Diagnostic Test (Routine) - New Request Specialty Diagnoses / Procedures Referred By Contac t Referred To Contact Cardiology Diagnoses S/P TAVR (transcatheter aortic valve replacement) Procedures Echocardiogram Transthoracic Antelmo Sharma MD [facility] [place] [address] [facility] [place] [address] Referral ID Status Reason Start Date Expiration Date Visits Requested Visits Authorized [id number] New Request Specialty Service Requested 12/16/2023 12/15/2024 1 1 Encounter Details Date Type Department Care Team (Late st Contact Info) Description 12/16/2023 Orders Only Cardiology at [address] [address] Antelmo Sharma MD [facility] [place] [address] S/P TAVR (transcatheter aortic valve [...] PM EDT Office Visit Dermatology at [place] [address] [facility] [place] [phone] Marek Bonilla MD [address], [place] [place] [address] Scheduled Orders Name Type Priority Associated Diagnoses [...] replacement) documented in this encounter Care Teams Folder Inspector Relationship Specialty Start Date End Date Magdalena Acosta MD [address] [place] [address] PCP - General Family Medicine 02/05/23 documented as of this encounter
--- OUTSIDE RECORDS SUMMARY | 2024-04-11 14:16 | XMS_ITS | Encounter Summary ---
[place] [address] Care Team Providers Care Sash Installer Name Role Phone Magdalena Acosta MD Primary Care Provider [phone] Reason for Visit * Reason Comments Annual Exam Encounter Details Date Type Department Care Team (Late st Contact Info) Description 02/22/2024 4:15 PM EDT Office Visit Dermatology at [address] [phone] Marek Bonilla MD [address] [facility], [facility] A DERMATOLOGY [place], [place] [id number] Seborrheic keratosis; Rosacea; Nevus Social History Tobacco [...] and ocular 3. Previously told by entry level automotive technician that she had corneal tears from [...] PM EDT Office Visit Dermatology at [place] [address] [place] [address] Marek Bonilla MD [address] [facility], [place] [address] documented as of this encounter Visit Diagnoses Diagnosis Seborrheic keratosis Other seborrheic keratosis Rosacea Nevus Benign neoplasm of skin, site unspecified documented in this encounter Care Teams Sash Installer Relationship Specialty Start Date End Date Magdalena Acosta MD [address] [place] [address] PCP - General Family Medicine 02/05/23 documented as of this encounter
--- OUTSIDE RECORDS SUMMARY | 2024-04-11 14:16 | XMS_ITS | Encounter Summary ---
Author Organization [facility] Address [address] [place] [address] Care Team Providers Care Pre K Teacher Name Role Phone Scott, Ashley WILLIAM Primary Care Provider [phone] Encounter Details Date Type Department Care Team (Late st Contact Info) Description 12/23/2016 Results Only [facility] [phone] Deborah Quiroga, SIDER MECHANIC [address] [place] [phone] Social History Tobacco Use Types Packs/Day Years [...] ? 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 Accession #: ? [id number] ? : ? 1955 (Age: 61) ??F ?Collect Date: ? 12/23/2016 ? Location: ? [facility] ? Receive Date: ? 12/25/2016 ? Provider: DEBORAH QUIROGA PICTURE PAINTER Copy to: ? Final Report SPECIMEN ADEQUACY ? Satisfactory for Evaluation - transformation zone component present GENERAL CATEGORIZATION ? Negative for Intraepithelial Lesion or Malignancy ?? Last Menstrual Period: years Specimen/Source: ??Pap Test, Cervix, ThinPrep Imaging System with manual evaluation Document reviewed and electronically signed by: ? Monica Cason [facility](ASCP) ? Report ??Date: 01/06/2017 09:11 HPV with Pap Test ? Date Ordered: ? 01/06/2017 ? Status: ?? Signed Out ?Date Complete: ? 01/07/2017 ? By: ??System Interface ? Date Reported: ? 01/07/2017 ? Interpretation RESULT: Negative for HPV. No E6 or E7 mRNA is detected from HPV types 16,18,31,33,35, 39,45,51,52,56,58, 59,66, and 68 by pharmacogeneticist mediated amplification. Comments Document reviewed and electronically signed by: ? System Interface ? Report date: 01/07/2017 By the signature above, the attending physician certifies that he/she has personally conducted a gross and/or microscopic examination of the described specimens and rendered or confirmed the above diagnosis. End of Report [facility] 12/23/2016 12/25/2016 Deborah Quiroga SIDER MECHANIC PATHOLOGY ORDERABLES [facility] [address] [place] [address] documented in this encounter Visit Diagnoses Not on filedocumented in this encounter Care Teams Pre K Teacher Relationship Specialty Start Date End Date Ashley Chavez ARNP [address] [place] [address] PCP - General 07/11/10 documented as of this encounter
--- OUTSIDE RECORDS SUMMARY | 2024-04-11 14:16 | XMS_ITS | Encounter Summary ---
Author Organization [facility] Address [address] [place] [address] Care Team Providers Care Hair Worker Name Role Phone Unavailable Primary Care Provider Unavailabl e Encounter Details Date Type Department Care Team (Late st Contact Info) Description 03/24/2007 11:06 EDT - 03/24/2007 11:59 EDT Hospital Encounter [facility] - Other [address] [place] [address] Ashley Chavez ARNP [address] [place] [address] Discharge Disposition: Home or Self Care Social [...]
--- OUTSIDE RECORDS SUMMARY | 2024-04-11 14:16 | XMS_ITS | Encounter Summary ---
Author Organization [facility] Address [address] [place] [address] Care Team Providers Care Gas Distribution Supervisor Name Role Phone Ashley Chavez Primary Care Provider [phone] Encounter Details Date Type Department Care Team (Late st Contact Info) Description 03/22/2024 Lab Requisition [facility] Pathology & Laboratory Medicine - [address] [address] Consuelo Guerrero, DO [address] [place], [place] [address] Diaphragmatic hernia without obstruction or gangrene; Anemia, [...] explore management options, if applicable. 03/24/2024 10:36 [facility] Final Diagnosis A. JEJUNUM, [...] - Deeper sections x3 examined. 03/24/2024 10:36 [facility] Attestation There was significant resident/fellow involvement in the diagnostic evaluation of this case. By the signature below, the attending physician certifies that they have personally conducted a gross and/or microscopic examination of the described specimens and rendered or confirmed the above diagnosis. 03/24/2024 10:36 [facility] at 1036 Clinical History Anemia, hiatal hernia, 38 cm aguayo diverticulosis 03/24/2024 10:36 [facility] Gross Description A. Received [...] Luis Torres 03/22/2024 9:36 03/24/2024 10:36 EDT [facility] Resident/Estuardo w: Luis Felipe Bragg DO 03/24/2024 10:36 T [facility] Performing Lab [facility] 10:36 T [facility] Scanned Images 03/24/2024 10:36 T [facility] Tissue POLYP OF COLON [...] 8:19 EDT Consuelo Guerrero DO PATHOLOGY ORDERABLES [facility] [address] [place] [address] documented in this encounter Visit Diagnoses Diagnosis Diaphragmatic hernia without obstruction or gangrene Diaphragmatic hernia without mention of obstruction or gangrene Anemia, unspecified documented in this encounter Care Teams Gas Distribution Supervisor Relationship Specialty Start Date End Date Ashley Chavez ARNP [address] [place] [address] PCP - General 07/11/10 documented as of this encounter
--- OUTSIDE RECORDS SUMMARY | 2024-04-11 14:16 | XMS_ITS | Encounter Summary ---
Author Organization [facility] Address [address] [place] [address] Care Team Providers Care Hat Lining Paster Name Role Phone Ashley Chavez Primary Care Provider [phone] Encounter Details Date Type Department Care Team (Late st Contact Info) Description 12/17/2021 Lab Requisition [facility] [place] [facility] Pathology & Laboratory Medicine - [address] [address] Outr Resulting Lab, Provider Social History Tobacco [...] Lyme Ab Negative Negative 12/18/2021 10:37 EDT [facility] Blood VENOUS BLOOD / Unknown 12/17/2021 13:30 EDT 12/17/2021 21:32 EDT Provider Outr Resulting Lab IMMUNOLOGY A ND SEROLOGY ORDERABLES Performing Organization Address [facility] [[email or web address]] Co de Phone Number [facility] [address] [place] [address] * (ABNORMAL) ANTI NUCLEAR AB (FRANCISCO), IFA (12/17/2021 13:30 EDT) FRANCISCO Interpretation Positive(A) Negative 12/18/2021 16:06 EDT [facility] Comment: For titers greater [...] Pattern 1 1:1280 Speckled 12/18/2021 16:06 EDT [facility] Blood VENOUS BLOOD / Unknown 12/17/2021 13:30 EDT 12/17/2021 21:32 EDT Narrative [facility] - 12/18/2021 16:06 EDT Results were obtained with the INOVA NOVA Lite HEp-2 FRANCISCO Kit by indirect immunofluorescence. Provider Outr Resulting Lab IMMUNOLOGY A ND SEROLOGY ORDERABLES Performing Organization Address [facility] [[email or web address]] Co de Phone Number [facility] [address] [place] [address] documented in this encounter Visit Diagnoses Not on filedocumented in this encounter Care Teams Hat Lining Paster Relationship Specialty Start Date End Date Ashley Chavez ARNP [address] [place] [address] PCP - General 07/11/10 documented as of this encounter
--- OUTSIDE RECORDS SUMMARY | 2024-04-11 14:16 | XMS_ITS | Encounter Summary ---
Author Organization [facility] Address [address] [place] [address] Care Team Providers Care Case Folder Name Role Phone Scott, Ashley WILLIAM Primary Care Provider [phone] Encounter Details Date Type Department Care Team (Late st Contact Info) Description 03/21/2024 Lab Requisition [facility] Pathology & Laboratory Medicine - [address] [address] Consuelo Guerrero, DO [address] [place], [place] [address] Encounter for other general examination Social History [...] 13:00 EDT) LORY Negative 03/21/2024 22:31 EDT [facility] BLO[facility] Blood VENOUS BLOOD / Unknown 03/21/2024 13:00 EDT 03/21/2024 21:51 EDT Consuelo Guerrero DO BLOOD BANK TESTS [facility] [address] [place] [address] documented in this encounter Visit Diagnoses Diagnosis Encounter for other general examination documented in this encounter Care Teams Case Folder Relationship Specialty Start Date End Date Ashley hCavez ARNP [address] [place] [address] PCP - General 07/11/10 documented as of this encounter
--- OUTSIDE RECORDS SUMMARY | 2024-04-11 14:16 | XMS_ITS | Encounter Summary ---
Author Organization [facility] Address [address] [place] [address] Care Team Providers Care Process Control Programmer Name Role Phone Ashley Chavez Primary Care Provider [phone] Encounter Details Date Type Department Care Team (Late st Contact Info) Description 10/30/2022 Lab Requisition [facility] Pathology & Laboratory Medicine - [address] [address] Outr Resulting Lab, Provider Social History Tobacco [...] Stranded) <12.3 <30.0 IU/mL 11/03/2022 13:08 EDT [facility] Comment: ? Negative: ??<30.0 IU/mL ? Borderline Positive: ??30.0 - 75.0 IU/mL ? Positive: ??>75.0 IU/mL Results were obtained with the INOVA QUANTA Lite dsDNA SC DOMO assay on the [employer] DSX. Blood VENOUS BLOOD / Unknown 10/29/2022 14:00 EDT 10/30/2022 19:27 EDT Provider Outr Resulting Lab IMMUNOLOGY A ND SEROLOGY ORDERABLES Performing Organization Address [facility] de Phone Number [facility] [address] [place] [address] * SM (MORENO) ANTIBODY (10/29/2022 14:00 EDT) [facility] SM (Moreno) Antibody 18.5 <20.0 Units 11/03/2022 14:26 EDT [facility] Comment: ? Negative: <20.0 [...] SEROLOGY ORDERABLES Performing Organization Address [facility] de Phone Number [facility] [address] [place] [address] documented in this encounter Visit Diagnoses Not on filedocumented in this encounter Care Teams Process Control Programmer Relationship Specialty Start Date End Date Ashley Chavez ARNP [address] [place] [address] PCP - General 07/11/10 documented as of this encounter
--- OUTSIDE RECORDS SUMMARY | 2024-04-11 14:16 | XMS_ITS | Encounter Summary ---
[place] [address] Care Team Providers Care Air Export Operations Agent Name Role Phone Magdalena Acosta MD Primary Care Provider Reason for Referral * Consultation (Routine) - Authorized Specialty Diagnoses / Procedures Referred By Contac t Referred To Contact Hematology and Oncology Diagnoses Anemia, unspecified type Consuelo Guerrero DO [address] [place] [address] [address] [place] [address] [facility] [address] [place] [address] Referral ID Status Reason Start Date Expiration Date Visits Requested Visits Authorized [id number] Authorized Consult, Test & Treat 04/11/2024 04/11/2025 1 1 Encounter Details Date Type Department Care Team (Late st Contact Info) Description 04/11/2024 Transcribe Orders eDH Incoming Referrals [phone] Consuelo Guerrero DO [address] [place] [address] [address] [place] [address] Anemia, unspecified type Social History Tobacco Use Types Packs/Day Years Used Date Smoking Tobacco: Never Smokeless Tobacco: Never Alcohol Use Standard Drinks/Week Comments No 0 (1 standard drink = 0.6 oz pur e alcohol) none [facility] Inpatient Questions Answer Date Recorded [...] 4:15 PM EDT Office Visit Dermatology at [place] [address] [facility] [place] [address] Marek Bonilla MD [address] [place] [address] Scheduled Referrals Name Type Priority Associated Diagnoses Orde r Schedule Referral to Hematology and Oncology Outpatient Referral Routine Anemia, unspecified type Ordered: 04/11/2024 documented as of this encounter Visit Diagnoses Diagnosis Anemia, unspecified type documented in this encounter Care Teams Air Export Operations Agent Relationship Specialty Start Date End Date Magdalena Acosta MD [address] [place] [address] PCP - General Family Medicine 02/05/23 documented as of this encounter
--- OUTSIDE RECORDS SUMMARY | 2024-04-11 14:16 | XMS_ITS | Encounter Summary ---
[place] [address] Care Team Providers Care Shop Tech Name Role Phone Magdalena Acosta MD Primary Care Provider [phone] Encounter Details Date Type Department Care Team [...] 4:15 PM EDT Office Visit Dermatology at [place] [address] [facility] [place] [address] Marek Bonilla MD [address] A DERMATOLOGY [place], [place] [phone] documented as of this encounter Visit Diagnoses Not on filedocumented in this encounter Care Teams Shop Tech Relationship Specialty Start Date End Date Madgalena Acosta MD [address] [place] [address] PCP - General Family Medicine 02/05/23 documented as of this encounter
--- OUTSIDE RECORDS SUMMARY | 2024-04-11 14:16 | XMS_ITS | Encounter Summary ---
Author Organization [facility] Address [address] [place] [address] Care Team Providers Care Drop Wirer Name Role Phone Unavailable Primary Care Provider Unavailabl e Encounter Details Date Type Department Care Team (Late st Contact Info) Description 04/20/2005 Results Only [facility] [address] [place] [address] Ziggy Valiente MD [address] [place] [id number] Social History Tobacco Use Types Packs/Day Years [...] ? 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 Accession #: ? [id number] ? : ? 1955 (Age: 49) ??F [...] correlation with endoscopic appearance is recommended. (Dr. Chino)/[facility] Document reviewed and electronically signed [...] is entirely submitted in one cassette. ??(Arabella Santos)/[facility] End of Report PAUL ARELLANO 04/20/2005 04/21/2005 15: 04 EDT Ziggy Valiente MD PATHOLOGY ORDERABLES PAUL ARELLANO [address] [place] [address] documented in this encounter Visit Diagnoses Not on filedocumented in this encounter
--- OUTSIDE RECORDS SUMMARY | 2024-04-11 14:16 | XMS_ITS | Encounter Summary ---
[place] [address] Care Team Providers Care Osha Inspector Name Role Phone Magdalena Acosta MD Primary Care Provider [phone] Reason for Visit * Reason Onset Date Comments Pre Procedure Call 03/01/2024 DAPT hold for EGD and colo? Encounter Details Date Type Department Care Team (Late st Contact Info) Description 03/01/2024 Telephone Cardiology at [address] [phone] Cynthia Monsalve RN Pre Procedure Call (DAPT hold for EGD and colo?) Social History Tobacco Use Types Packs/Day Years Used Date Smoking Tobacco: Never Smokeless Tobacco: Never Alcohol Use Standard Drinks/Week Comments No 0 (1 standard drink = 0.6 oz pur e alcohol) none [facility]END[facility] Inpatient Questions Answer Date Recorded [...] safe. Jay Message above left with Yenifer (practice administrator), who would be leaving this note in patient's chart for providers to schedule patient. No further questions or needs at this time. This nurse stated, note will be placed regarding this call in our chart for patient. Kezia Whitney RN, BSN Ambulatory Cardiology [facility], [facility] [phone] * Telephone Encounter - Cynthia Monsalve RN [...] 4:15 PM EDT Office Visit Dermatology at [place] [address] [place] [phone] Marek Bonilla MD [address], [place] [address] documented as of this encounter Visit Diagnoses Not on filedocumented in this encounter Care Teams Osha Inspector Relationship Specialty Start Date End Date Magdalena Acosta MD [address] [place] [address] PCP - General Family Medicine 02/05/23 documented as of this encounter
--- OUTSIDE RECORDS SUMMARY | 2024-04-11 14:16 | XMS_ITS | Encounter Summary ---
Author Organization [facility] Address [address] [place] [address] Care Team Providers Care Concrete Saw Operator Name Role Phone Ashley Chavez Primary Care Provider [phone] Encounter Details Date Type Department Care Team (Latest Contact Info) Description 05/12/2019 13:18 EDT - 05/12/2019 23:59 EDT Hospital Encounter [address] [address] Unknown, Provider, Discharge Disposition: Home or Self Care Social History Tobacco Use Types Packs/Day Years Used Date Smoking Tobacco: Never Assessed Sex and Gender Information Value Date Recorded Sex Assigned at Not on file Gender Identity Not on file Sexual Orientation Not on file documented as of this encounter Discharge Disposition Disposition Code Departure Means Destination Home or Self Long Term documented in this encounter Plan of Treatment Not on file documented as of this encounter Visit Diagnoses Not on filedocumented in this encounter Care Teams Concrete Saw Operator Relationship Specialty Start Date End Date Ashley Chavez ARNP [address] [place] [address] PCP - General 07/11/10 documented as of this encounter
--- OUTSIDE RECORDS SUMMARY | 2024-04-11 14:16 | XMS_ITS | Encounter Summary ---
Author Organization [facility] Address [address] [place] [address] Care Team Providers Care Nurse Auditor Name Role Phone Scott Ashley WILLIAM Primary Care Provider [phone] Encounter Details Date Type Department Care Team (Late st Contact Info) Description 11/10/2013 Results Only [facility] [phone] Jeni Laird, CLINICAL LABORATORY MEDICAL DIRECTOR [address] [place], [place] [id number] Social History Tobacco Use Types Packs/Day Years [...] ? 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 Accession #: ? [id number] : ? 1955 (Age: 58) ??F ?Collect Date: ? 11/10/2013 Location: ? [facility] ? Receive Date: ? 11/14/2013 Provider: ?JENI LAIRD CLINICAL LABORATORY MEDICAL DIRECTOR Copy to: ? Specimen/Source: ?Pap Test, Endocervix, [...] Report PAUL ARELLANO 11/10/2013 11/14/2013 Jeni Laird CLINICAL LABORATORY MEDICAL DIRECTOR PATHOLOGY ORDERAB LES Performing Organization Address City/State/[facility] Co de Phone Number PAUL ARELLANO [address] [place] [address] documented in this encounter Visit Diagnoses Not on filedocumented in this encounter Care Teams Nurse Auditor Relationship Specialty Start Date End Date Ashley Chavez ARNP [address] [place] [address] PCP - General 07/11/10 documented as of this encounter
--- OUTSIDE RECORDS SUMMARY | 2024-04-11 14:16 | XMS_ITS | Encounter Summary ---
Author Organization [facility] Address [address] [place] [address] Care Team Providers Care Portfolio Specialist Name Role Phone Ashley Chavez Primary Care Provider [phone] Encounter Details Date Type Department Care Team (Late st Contact Info) Description 01/07/2023 Lab Requisition [facility] Pathology & Laboratory Medicine - [address] [address] Outr Resulting Lab, Provider Social History Tobacco [...] 56.2 55.8 - 66.1 % 01/08/2023 11:28 [facility] Albumin g/dL 3.9 3.6 - 5.2 g/dL 01/08/2023 11:28 [facility] Alpha-1 % 5.1(H) 2.9 - 4.9 % 01/08/2023 11:28 [facility] Alpha-1 g/dL 0.40 0.15 - 0.40 g/dL 01/08/2023 11:28 [facility] Alpha-2 % 7.0(L) 7.1 - 11.8 % 01/08/2023 11:28 [facility] Alpha-2 g/dL 0.50 0.50 - 1.00 g/dL 01/08/2023 11:28 [facility] Beta % 12.7 8.4 - 13.1 % 01/08/2023 11:28 [facility] Beta g/dL 0.90 0.60 - 1.20 g/dL 01/08/2023 11:28 [facility] Gamma % 19.0(H) 11.1 - 18.8 % 01/08/2023 11:28 [facility] Gamma g/dL 1.30 0.60 - 1.60 g/dL 01/08/2023 11:28 [facility] SPEP Comment No apparent monoclonal protein seen on serum electrophoresis 01/08/2023 11:28 [facility] Comment:See scanned/suppleme ntary report. Total Protein 6.9 6.3 - 8.2 g/dL 01/08/2023 11:28 [facility] Blood VENOUS BLOOD / Unknown 01/06/2023 14:40 EDT 01/07/2023 17:37 EDT Provider Outr Resulting Lab CHEMISTRY & BLOOD GAS ORDERABLES Performing Organization Address City/State/[facility] Co de Phone Number [facility] [address] [place] [address] * PROTEIN, TOTAL (01/06/2023 14:40 EDT) Blood VENOUS BLOOD / Unknown 01/06/2023 14:40 EDT 01/07/2023 17:37 EDT Provider Outr Resulting Lab CHEMISTRY & BLOOD GAS ORDERABLES Performing Organization Address [facility] Co de Phone Number [facility] [address] [place] [address] * (ABNORMAL) EXTRACTABLE NUCLEAR ANTIGEN PANEL (01/06/2023 [...] >80.0 Units Results were obtained with the [employer] QUANTA Lite Sm DOMO. ??Sm values obtained with different manufacturers' assay methods may not be used interchangeably. ??The magnitude of the reported IgG levels cannot be correlated to an endpoint titer. OIL PIPELINE OPERATOR Antibody 149.1(H) <20.0 Units 01/08/2023 15:42 EDT [facility] Comment: ? Negative: <20.0 Units ? Weak Positive: 20.0 - 39.9 Units ? Moderate Positive: 40.0 - 80.0 Units ? Strong Positive: >80.0 Units Results were obtained with the [employer] Quanta Lite OIL PIPELINE OPERATOR DOMO. OIL PIPELINE OPERATOR values obtained with different fire tower keeper's assay methods may not be used interchangeaby. ??The magnitude of the reported IgG levels cannot be be correlated to an endpoint titer. A positive result in the Quanta Lite OIL PIPELINE OPERATOR DOMO indicates the presence of antibodies reactive with the OIL PIPELINE OPERATOR/Sm complex but cannot distinguish between anti-Sm and anti-OIL PIPELINE OPERATOR activity. Blood VENOUS BLOOD / Unknown 01/06/2023 14:40 EDT 01/07/2023 17:37 EDT Provider Outr Resulting Lab IMMUNOLOGY A ND SEROLOGY ORDERABLES [facility] [address] [place] [address] * (ABNORMAL) ANTI NUCLEAR AB (FRANCISCO), IFA [...] A ND SEROLOGY ORDERABLES Performing Organization Address City/State/[facility] Co de Phone Number [facility] [address] [place] [address] documented in this encounter Visit Diagnoses Not on filedocumented in this encounter Care Teams Portfolio Specialist Relationship Specialty Start Date End Date Ashley Chavez ARNP [address] [place] [address] PCP - General 07/11/10 documented as of this encounter
--- OUTSIDE RECORDS SUMMARY | 2024-04-11 14:16 | XMS_ITS | Encounter Summary ---
Author Organization [facility] Address [address] [place] [address] Care Team Providers Care Heel Layer Name Role Phone Unavailable Primary Care Provider Unavailabl e Encounter Details Date Type Department Care Team (Late st Contact Info) Description 03/24/2007 Results Only [facility] Non-Invasive Cardiology - [facility] [address] [place], [place] [address] Ashley Chavez ARNP [address] [place] [address] Social History Tobacco Use Types Packs/Day Years [...] ? 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 Accession #: ? [id number] : ? 1955 (Age: 51) ??F ?Collect Date: ? 03/24/2007 Location: ? [facility] ? Receive Date: ? 03/28/2007 Provider: ?ASHLEY THOMAS Copy to: ? Specimen/Source: ?ThinPrep Pap Test, Endocervix, processed on HiWiFi ThinPrep Imaging System, with manual evaluation Last [...] Ashley THOMAS PATHOLOGY ORDERABLES PA[facility] ARELLANO [address] [place] [address] documented in this encounter Visit Diagnoses Not on filedocumented in this encounter
--- OUTSIDE RECORDS SUMMARY | 2024-04-11 14:16 | XMS_ITS | Encounter Summary ---
Author Organization [facility] Address [address] [place] [address] Care Team Providers Care Supervisor Esters And Emulsifiers Name Role Phone Ashley Chavez Primary Care Provider [phone] Encounter Details Date Type Department Care Team (Late st Contact Info) Description 06/23/2016 Results Only [facility] [phone] Matthew Acevedo, DO [address] [facility] [place] [address] [place] [address] Social History Tobacco Use Types Packs/Day [...] ? 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 Accession #: ? [id number] : ? 1955 (Age: 60) ??F ?Collect [...] ?? KARYOTYPE: 46,XX[25] End of Report [facility] 06/23/2016 06/24/2016 Matthew Acevedo DO PATHOLOGY ORDER JODIE [facility] [address] [place] [address] * FLOW CYTOMETRY (06/23/2016 0:00 EST) Pathology Report: FLOW CYTOMETRY REPORT Reports generated via electronic interface contain original data; however they are lacking the format of the original report. Caution should be taken when reading/interpreting unformatted reports. Name: ? 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 Accession #: ? [id number] : ? 1955 (Age: 60) ??F ?Collect Date: ? 06/23/2016 00:00 Location: ? [facility] ? Receive Date: ? 06/24/2016 08:00 Provider: ?MATTHEW ACEVEDO DO Copy to: ?WINTER HANKINS C PROGRAMMER MARIO ALBERTO RAMOS MD ? FINAL IMMUNOPHENOTYPIC INTERPRETATION: ? Bone marrow, flow cytometric analysis: -No immunophenotypic evidence of a clonal cell population. ??See comment. ? COMMENT: The results of flow cytometry show no immunophenotypic evidence of involvement by a clonal lymphoproliferative or myeloproliferative disorder. ??Correlation of these findings with morphologic and clinical data is essential. ??Please refer to pathology report number [id number] for morphologic details. ? Document reviewed and [...] the Department of Pathology and Laboratory Medicine, [place], [place] ??It has not been cleared or [...] laboratory testing. End of Report ?? [facility] 06/23/2016 06/24/2016 8:0 0 EST Matthew Acevedo DO PATHOLOGY ORDER JODIE [facility] [address] [place] [address] * BONE MARROW/HEMPATH CONSULT (06/23/2016 0:00 EST) Pathology Report: BONE MARROW REPORT Reports generated via electronic interface contain original data; however they are lacking the format of the original report. Caution should be taken when reading/interpreting unformatted reports. Name: ? 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 Accession #: ? [id number] : ? 1955 (Age: 60) ??F ?Collect Date: ? 06/23/2016 Location: ? [facility] ? Receive Date: ? 06/24/2016 Provider: ? MATTHEW ACEVEDO DO Copy to: ?WINTER HANKINS C PROGRAMMER MARIO ALBERTO RAMOS MD ? DIAGNOSIS: Peripheral [...] #1: Aggregate biopsy length: 8 mm with hand cloth cutter trabeculae of lamellar bone, cellular bone marrow, [...] SEE ABOVE DISCUSSION Lambda (polyclonal, Dako) ??(B1): Zoar (polyclonal, Dako) ??(B1): Biopsy (decalcified) #2: Aggregate biopsy length: 8 mm with hand cloth cutter trabeculae of lamellar bone, cellular bone marrow, [...] (M115, Leica) ??(B2): Lambda (polyclonal, Dako) ??(B2): Zoar (polyclonal, Dako) ??(B2): NOTE: ??One or more [...] performance characteristics have been determined by [facility]. ??The positive and negative controls [...] ? 1% Blasts ?1% Special Studies Cytogenetics ([id number]): Pending. Flow Cytometry ([id number]): No immunophenotypic evidence of a clonal cell population. ? End of Report [facility] 06/23/2016 06/24/2016 Matthew Acevedo DO PATHOLOGY ORDER JODIE [facility] [address] [place] [address] documented in this encounter Visit Diagnoses Not on filedocumented in this encounter Care Teams Supervisor Esters And Emulsifiers Relationship Specialty Start Date End Date Ashley Chavez ARNP [address] [place] [address] PCP - General 07/11/10 documented as of this encounter
--- OUTSIDE RECORDS SUMMARY | 2024-04-11 14:16 | XMS_ITS | Encounter Summary ---
Author Organization [facility] Address [address] [place] [address] Care Team Providers Care Administrative Services Director Name Role Phone Unavailable Primary Care Provider Unavailabl e Encounter Details Date Type Department Care Team (Late st Contact Info) Description 06/29/2007 Results Only [facility] [place] - [facility] [address] [place] [address] Sánchez Acevedo MD [address] [place] [address] Social History Tobacco Use Types Packs/Day Years [...] ? 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 Accession #: ? [id number] ? : ? 1955 (Age: 51) ??F [...] covered by a smooth white serosa. ??Three apprenticeship training representative sections of the gallbladder are submitted in one cassette. ??(Sriram Elias[facility] End of Report [facility] 06/29/2007 06/29/2007 21: 23 EST Sánchez Acevedo MD PATHOLOGY ORDERABLE S [facility] [address] [place] [address] documented in this encounter Visit Diagnoses Not on filedocumented in this encounter
--- OUTSIDE RECORDS SUMMARY | 2024-04-11 14:17 | XMS_ITS | Encounter Summary ---
[place] [address] Care Team Providers Care Ag Equipment Field Service Technician Name Role Phone Magdalena Acosta MD Primary Care Provider [phone] Encounter Details Date Type Department Care Team [...] 4:15 PM EDT Office Visit Dermatology at [place] [address] [facility] [place] [address] Marek Bonilla MD [address], TODD A DERMATOLOGY [place], [place] [phone] documented as of this encounter Visit Diagnoses Not on filedocumented in this encounter Care Teams Ag Equipment Field Service Technician Relationship Specialty Start Date End Date Magdalena Acosta MD [address] [place] [address] PCP - General Family Medicine 02/05/23 documented as of this encounter
--- OUTSIDE RECORDS SUMMARY | 2024-04-11 14:17 | XMS_ITS | Encounter Summary ---
[place] [address] Care Team Providers Care Certified Art Therapist Name Role Phone Magdalena Acosta MD Primary Care Provider [phone] Encounter Details Date Type Department Care Team [...] 4:15 PM EDT Office Visit Dermatology at [place] [address] [place] [address] Marek Bonilla MD [address], TODD A DERMATOLOGY [place], [place] [address] documented as of this encounter Visit Diagnoses Not on filedocumented in this encounter Care Teams Certified Art Therapist Relationship Specialty Start Date End Date Magdalena Acosta MD [address] [place] [address] PCP - General Family Medicine 02/05/23 documented as of this encounter
--- OUTSIDE RECORDS SUMMARY | 2024-04-11 14:17 | XMS_ITS | Encounter Summary ---
Author Organization [facility] [place] [address] Care Team Providers Care Inside Sales Representative Name Role Phone Magdalena Acosta MD Primary Care Provider [phone] Reason for Referral * Diagnostic Test (Routine) - Closed Specialty Diagnoses / Procedures Referred By Contac t Referred To Contact Cardiology Diagnoses S/P TAVR (transcatheter aortic valve replacement) Procedures Echocardiogram Transthoracic Vinod Juárez PA [facility] [place] [address] [facility] [place] [address] Referral ID Status Reason Start Date Expiration Date V isits Requested Visits Authorized [id number] Closed Specialty Service Requested 05/22/2023 05/21/2024 1 1 Reason for Visit * Diagnostic Test (Routine) - Closed Specialty Diagnoses / Procedures Referred By Contac t Referred To Contact Cardiology Diagnoses S/P TAVR (transcatheter aortic valve replacement) Procedures Echocardiogram Transthoracic Vinod Juárez PA [facility] [place] [address] [facility] [place] [address] Referral ID Status Reason Start Date Expiration Date V isits Requested Visits Authorized [id number] Closed Specialty Service Requested 05/22/2023 05/21/2024 1 1 Encounter Details Date Type Department Care Team (Latest Contact Info) Description 07/08/2023 10:19 AM EST - 07/08/2023 11:59 PM EST Hospital Encounter Non[place] [address] Alirio Esparza MD S/P TAVR (transcatheter aortic [...] 4:15 PM EDT Office Visit Dermatology at [place] [address] [facility] [place] [address] Marek Bonilla MD [address], [place] [address] documented as of this encounter Procedures Procedure [...] EST Narrative 07/08/2023 12:26 PM EST [address] [place] [address] ? Echocardiogram Report Name: ONESIMO THACKER ?Study Date: 07/08/2023 10:31 AMBP: 118/60 mmHg ? Patient Location: : 1955 ? Height: 155 cm ? Account: [id number] Age: 67 yrs ? Weight: 74 kg Gender: Female ?BSA: 1.7 m2 Ordering Physician: ALIRIO ESPARZA Referring Physician: VINOD JUÁREZ Performed By: Felicia Norris RDCS Reason For Study: S/P TAVR Exam Location: [facility]. Interpretation Summary Left ventricular systolic [...] no significant change (post-procedure). Procedure Limited - 85524. Doppler - 00461. Color Doppler - 26560. Satisfactory quality. This study is limited because [...] Note Lee Kincaid MD - 07/08/2023 [address] [place] [address] Echocardiogram Report Name: ANDREWONESIMO Study Date: 0:31 AMBP: 118/60 mmHg Patient Location: : 1955 Height: 155 cm Account: [id number] Age: 67 yrs Weight: 74 kg Gender: Female BSA: 1.7 m2 Ordering Physician: ALIRIO ESPARZA Referring Physician: VINOD JUÁREZ Performed By: Felicia Norris RDCS Reason For Study: S/P TAVR Exam Location: [facility]. Interpretation Summary Left ventricular systolic [...] is nosignificant change (post-procedure). Procedure Limited - 07957. Doppler - 51346. Color Doppler - 20718. Satisfactoryquality. This study is limited because of [...] replacement) documented in this encounter Care Teams Inside Sales Representative Relationship Specialty Start Date End Date Magdalena Acosta MD [address] [place] [address] PCP - General Family Medicine 02/05/23 documented as of this encounter
--- OUTSIDE RECORDS SUMMARY | 2024-04-11 14:17 | XMS_ITS | Encounter Summary ---
[place] [address] Care Team Providers Care Entry Processor Name Role Phone Magdalena Acosta MD Primary Care Provider [phone] Encounter Details Date Type Department Care Team (Latest Contact Info) Description 07/08/2023 12:35 PM EST Laboratory Appointment Lab [address] [place] [address] S/P TAVR (transcatheter aortic valve [...] PM EDT Office Visit Dermatology at [place] [address] [facility] [place] [id number] Marek Bonilla MD [address], [place] [address] (work) documented as of this encounter Procedures [...] 11:56 AM EST) Neutrophil % 73.2 % [facility] Neutrophil Absolute 3.40 1.70 - 6.10 x10(3)/mc L [facility] Lymph % 16.1 % [facility] Lymphocytes Abs 0.8(L) 0.9 - 3.2 x10(3)/mc L [facility] Monocyte % 9.7 % [facility] Monocyte Abs 0.4 0.3 - 0.9 x10(3)/mc L [facility] Eos % 0.4 % [facility] Eosinophils Abs 0.0 0.0 - 0.4 x10(3)/mc L [facility] Basophil % 0.4 % [facility] Baso Absolute 0.0 0.0 - 0.1 x10(3)/mc L [facility] Immature Gran % 0.20 % [facility] Comment: Immature granulocytes(IG's)percentage and absolute count will include metamyelocytes, myelocytes, and promyelocytes. Blood smears from CBCs yielding IG's will be scanned manually for concordance. If this scan disagrees with the automated IG or if promyelocytes are noted, a manual differential will be performed. Immature Gran Absolute 0.01 0.00 - 0.04 x10(3)/mc L [facility] Blood 07/08/2023 11:5 6 AM EST 07/08/2023 12:02 PM EST Narrative Resulting Agency Comment Spec In Lab Minh TOBAR HEMATOLOGY ORDERABLE S [facility] [place] [address] * (ABNORMAL) Hemogram (07/08/2023 11:56 AM EST) White Blood Cell 4.6 4.0 - 9.5 x10(3)/mc L [facility] Red Blood Cell 3.34(L) 4.00 - 5.21 x10(6)/mc L [facility] Hemoglobin 11.0(L) 11.7 - 15.5 g/dL [facility] Hematocrit 33.2(L) 35.7 - 45.8 % [facility] Mean Cell Volume 99.4(H) 82.6 - 94.4 fL [facility] Mean Cell Hemoglobin 32.9(H) 27.1 - 32.0 pg [facility] Mean Cell Hemoglobin Concentration 33.1 31.7 - 35.0 g/dL [facility] Platelet 166 145 - 357 x10(3)/mc L [facility] RDW Standard Deviation 47.1(H) 37.0 - 46.0 fL [facility] RDW coefficient of variation 13.0 11.5 - 14.1 % [facility] Mean Platelet Volume 9.0 7.6 - 12.9 fL [facility] NRBC% auto 0.0 % [facility] NRBC Absolute 0.000 0.000 - 0.000 x10(3)/mc L [facility] Blood 07/08/2023 11:5 6 AM EST 07/08/2023 12:02 PM EST Narrative Resulting Agency Comment Spec In Lab Minh TOBAR HEMATOLOGY ORDERABLE S [facility] [place] [address] * (ABNORMAL) Comprehensive metabolic panel (non-fasting) (07/08/2023 11:56 AM EST) Glucose 93 65 - 199 mg/dL [facility] Comment:Diabetes: >=200 mg/d L plus symptoms Blood Urea Nitrogen 19(H) 8 - 18 mg/dL [facility] Creatinine 0.81 0.70 - 1.20 mg/dL [facility] Sodium 142 135 - 145 mmol/L [facility] Potassium 3.8 3.5 - 5.0 mmol/L [facility] Comment: Please note: ??Patients with WBC >100,000 may have falsely elevated Potassium levels. ??For accurate Potassium quantification in these patients send serum separator tube (gold top) for subsequent determinations. ??Contact the Clinical Chemistry Laboratory if there are any questions. Chloride 104 98 - 107 mmol/L [facility] Carbon Dioxide 26 22 - 31 mmol/L [facility] Anion Gap 12 5 - 15 mmol/L [facility] Calcium 10.2 8.5 - 10.5 mg/dL [facility] Protein, Total 7.4 6.1 - 8.0 g/dL [facility] Albumin 4.1 3.2 - 5.2 g/dL [facility] Aspartate Aminotransferase 24 0 - 30 unit/L [facility] Alanine Aminotransferase 12 0 - 30 unit/L [facility] Alkaline Phosphatase 93 35 - 105 unit/L [facility] Bilirubin, Total 0.3 0.2 - 1.3 mg/dL [facility] Est Glomerular Filtration Rate 80 >=60 mL/min/1. 73 m?? [facility] Comment: This patient's estimated GFR was [...] Lab Alirio Esparza MD CHEMISTRY ORDERABLE S [facility] [place] [address] documented in this encounter Visit Diagnoses Diagnosis S/P TAVR (transcatheter aortic valve replacement) Severe aortic stenosis Aortic valve disorders documented in this encounter Care Teams Entry Processor Relationship Specialty Start Date End Date Magdalena Acosta MD [address] [place] [address] PCP - General Family Medicine 02/05/23 documented as of this encounter
--- OUTSIDE RECORDS SUMMARY | 2024-04-11 14:17 | XMS_ITS | Encounter Summary ---
[place] [address] Care Team Providers Care Data Warehousing Manager Name Role Phone Magdalena Acosta MD Primary Care Provider [phone] Encounter Details Date Type Department Care Team (Latest Contact Info) Description 10/05/2023 10:52 AM EST - 10/05/2023 11:59 PM [facility] Hospital Encounter [place] [address] Mixed connective tissue disease Discharge Disposition: Home Social History Tobacco Use Types Packs/Day Years Used Date Smoking Tobacco: Never Smokeless Tobacco: Never Alcohol Use Standard Drinks/Week Comments No 0 (1 standard drink = 0.6 oz pur e alcohol) none [facility] Inpatient Questions Answer Date Recorded Does [...] 4:15 PM EDT Office Visit Dermatology at [place] [address] [place] [address] Marek Bonilla MD [address], [place] [address] documented as of this encounter Procedures Procedure [...] PFT FEV1/FVC Pre-BD Z-Score 0 COMPAS PFT LWC07-17 Actual Pre-BD 2.41 % COMPAS PFT XAX37-81 Predicted 1.8 % COMPAS PFT SHW16-06 Pre-BD % of Predicted 134 % COMPAS PFT LNN36-37 Pre-BD Z-Score 0.81 COMPAS PFT DLCO Hb [...] documented in this encounter Care Teams Data Warehousing Manager Relationship Specialty Start Date End Date Magdalena Acosta MD [address] [place] [address] PCP - General Family Medicine 02/05/23 documented as of this encounter
--- OUTSIDE RECORDS SUMMARY | 2024-04-11 14:17 | XMS_ITS | Encounter Summary ---
[place] [address] Care Team Providers Care Pediatric Acute Care Unit Nurse Name Role Phone Magdalena Acosta MD Primary Care Provider [phone] Encounter Details Date Type Department Care Team [...] 4:15 PM EDT Office Visit Dermatology at [place] [address] [place] [address] Marek Bonilla MD [address], TOD[place] A DERMATOLOGY [place], [place] [id number] documented as of this encounter Visit Diagnoses Not on filedocumented in this encounter Care Teams Pediatric Acute Care Unit Nurse Relationship Specialty Start Date End Date Magdalena Acosta MD [address] [place] [address] PCP - General Family Medicine 02/05/23 documented as of this encounter
--- OUTSIDE RECORDS SUMMARY | 2024-04-11 14:17 | XMS_ITS | Encounter Summary ---
Author Organization [facility] [place] [address] Care Team Providers Care Mechanical Systems Design Engineer Name Role Phone Magdalena Acosta MD Primary Care Provider Encounter Details Date Type Department Care Team (Late st Contact Info) Description 05/27/2023 Refill Cardiology at [address] [phone] Vero Marrero, RN Social History Tobacco Use Types Packs/Day Years Used Date Smoking Tobacco: Never Smokeless Tobacco: Never Alcohol Use Standard Drinks/Week Comments No 0 (1 standard drink = 0.6 oz pur e alcohol) none [facility] Inpatient Questions Answer Date Recorded Does Anyone [...] PM EDT TC to Nurse Sosa at [facility] to relay response from Jay Maza copied below. Nurse Sosa states they will send a new prescription to patient's preferred pharmacy and call the patient with the medication information. No print prescription sent to update med list. May 27, 2023 Jay Maza PA to Co 05/27/23 2:44 PM OK to change ticagrelor to Clopidogrel. Now, she should be taking ticagrelor 90mg BID. When she switches, she can take ticagrelor, then the next morning, stop ticagrelor, instead take clopidogrel 300mg once, then after that 75mg once daily. Jay Marrero appliance parts counter clerk Clinic at [facility] [phone] * Telephone Encounter - Vero Marrero RN - 05/27/2023 1:46 PM EDT VM received from triage nurse Sosa at [facility] stating patient was seen today [...] possible. Vero Marrero RN Cardiology Clinic at [facility] [address] documented in this encounter Plan of Treatment Upcoming Encounters Date Type Department Care Team (Late st Contact Info) Description 03/01/2025 4:15 PM EDT Office Visit Dermatology at [place] [address] [place] [phone] Marek Bonilla MD [address], [place] [address] documented as of this encounter Visit Diagnoses Diagnosis Aortic valve stenosis, etiology of cardiac valve disease unspecified documented in this encounter Care Teams Mechanical Systems Design Engineer Relationship Specialty Start Date End Date Magdalena Acosta MD [address] [place] [address] PCP - General Family Medicine 02/05/23 documented as of this encounter
--- OUTSIDE RECORDS SUMMARY | 2024-04-11 14:17 | XMS_ITS | Encounter Summary ---
Author Organization [facility] [place] [address] Care Team Providers Care Yard Supervisor Cotton Gin Name Role Phone Magdalena Acosta MD Primary Care Provider [phone] Reason for Visit * Reason Comments Coronary Artery Disease Hypertension Aortic Stenosis Encounter Details Date Type Department Care Team (Latest Contact Info) Description 07/20/2023 4:40 PM EST TH Visit (TeleHealth) Cardiology at [address] [phone] Jay Maza PA [facility] [place] [address] HFrEF (heart failure with reduced ejection fraction); [...] Maza PA - 07/20/2023 4:40 PM EST [facility] [...] lieu of an in person office visit. Ham Stripper: Antelmo Sharma MD ([facility] Cards) Maria Luz Mejia MD ([facility] cards) Problem List: : prior surgical [...] notable for coronary artery protection given low ptrpc-nc-adgdkxmq distance. There was no obstruction post Valve deployment, but the stent could not be removed safely, so it was deployed. 4.0 mm x 30mm in left main. She was loaded on brilinta aka ticagrelor. Immediately post valve deployment, chest compressions to circulate central epinephrine which was administered given her hypotension, low LVEF, and low cardiac reserve. Next, the patient was transferred to [facility] for pressor and inotropic support. Pressors weaned overnight. Cardiac indices by thermodilution remained greater than 3 with continued Milrinone 0.125 mcg/kg/min. EKG the next day with NSR with stable FL/QRS intervals. Hemoglobin 7.8 today from 8.5, likely [...] arms and wrists. Successful right transfemoral TAVR Trdxe-ds-Zdnzs with a 23 mm Lai 3 THV. [...] leads Confirmed by MD Harshil, Haris Bell ([id number]) on 05/10/2023 8:11:46 AM Cardiac Cath 11/09/2022 [...] in chart review and direct patient contact. [id number] 0-5min 1718UEM9 6-10min 1760REA8 11-15min 9166ENR4 16-20min x 8744NGS1 21-30min 2299GUH8 31-40min 9586TDZ1 40+ min Jay Maza PA-C Interventional Cardiology [facility] Heart and Vascular [facility] Pager [phone] documented in this encounter Plan of Treatment Upcoming Encounters Date Type Department Care Team (Late st Contact Info) Description 03/01/2025 4:15 PM EDT Office Visit Dermatology at [place] [address] [place] [address] Marek Bonilla MD [address], [place] [address] documented as of this encounter Visit Diagnoses Diagnosis HFrEF (heart failure with reduced ejection fraction) Hypertension, unspecified type Aortic valve stenosis, etiology of cardiac valve disease unspecified documented in this encounter Care Teams Yard Supervisor Cotton Gin Relationship Specialty Start Date End Date Magdalena Acosta MD [address] [place] [address] PCP - General Family Medicine 02/05/23 documented as of this encounter
--- OUTSIDE RECORDS SUMMARY | 2024-04-11 14:17 | XMS_ITS | Encounter Summary ---
[place] [address] Care Team Providers Care Red Hat Open Stack Administrator Name Role Phone Magdalena Acosta MD Primary Care Provider [phone] Encounter Details Date Type Department Care Team [...] 4:15 PM EDT Office Visit Dermatology at [place] [address] [place] [address] Marek Bonilla MD [address], TODD A DERMATOLOGY [place], [place] [address] documented as of this encounter Visit Diagnoses Not on filedocumented in this encounter Care Teams Red Hat Open Stack Administrator Relationship Specialty Start Date End Date Magdalena Acosta MD [address] [place] [address] PCP - General Family Medicine 02/05/23 documented as of this encounter
--- OUTSIDE RECORDS SUMMARY | 2024-04-11 14:17 | XMS_ITS | Encounter Summary ---
Author Organization [facility] [place] [address] Care Team Providers Care Production Team Manager Name Role Phone Magdalena Acosta MD Primary Care Provider [phone] Encounter Details Date Type Department Care Team (Late st Contact Info) Description 07/08/2023 10:15 AM EST Office Visit Cardiology at [address] [phone] Severe aortic stenosis Social History Tobacco Use Types Packs/Day Years Used Date Smoking Tobacco: Never Smokeless Tobacco: Never Alcohol Use Standard Drinks/Week Comments No 0 (1 standard drink = 0.6 oz pur e alcohol) none [facility] Inpatient Questions Answer Date Recorded [...] 4:15 PM EDT Office Visit Dermatology at [place] [address] [place] [address] Marek Bonilla MD [address], [place] [address] documented as of this encounter Procedures Procedure [...] (Bezet) 449 ms MUSE SYSTEM Calculated P [place] 66 degrees MUSE SYSTEM Calculated R [place] 60 degrees MUSE SYSTEM Calculated T [place] 53 degrees MUSE SYSTEM INTERPRETATION Normal sinus rhythm Minimal voltage criteria for LVH, may be normal variant ( Sokolow-Orozco ) ST & T wave abnormality, consider lateral ischemia ??vs. repolarization abnormality from LVH Abnormal ECG When compared with ECG of 13-MAY-2023 09:22, Premature ventricular complexes are no longer Present Minimal criteria for Septal infarct are no longer Present Confirmed by Maxx Best ([id number]) on 07/09/2023 10:07:22 AM MUSE SYSTEM 07/08/2023 10:2 7 AM EST 07/09/2023 10:07 AM EST Brody Kaplan APRN ECG ORDERABLES MUSE SYSTEM documented in this encounter Visit Diagnoses Diagnosis Severe aortic stenosis Aortic valve disorders documented in this encounter Care Teams Production Team Manager Relationship Specialty Start Date End Date Magdalena Acosta MD [address] [place] [address] PCP - General Family Medicine 02/05/23 documented as of this encounter
--- OUTSIDE RECORDS SUMMARY | 2024-04-11 14:17 | XMS_ITS | Encounter Summary ---
Author Organization [facility] [place] [address] Care Team Providers Care Absorption Plant Operator Helper Name Role Phone Magdalena Acosta MD Primary Care Provider [phone] Encounter Details Date Type Department Care Team (Late st Contact Info) Description 07/29/2023 11:00 AM EST Office [place] [address] Magdalena Peralta MD [address] RHEUMATOLOGY [place] [address] Mixed connective tissue disease Social History Tobacco [...] 1:5120 speckled; VIC negative; Myositis panel with LANDMAN ab 149.1 (positive); Anti U1RNP IgG 119; [...] Viramontes. Magdalena Peralta MD Rheumatology Fellow Pager: [phone] * Kia Viramontes DO - 07/29/2023 11:00 AM EST ATTENDING ADDENDUM The patient's history was reviewed, and I interviewed and examined the patient with Dr. Peralta I agree with her summary, findings, and plan. documented in this encounter Plan of Treatment Upcoming Encounters Date Type Department Care Team (Late st Contact Info) Description 03/01/2025 4:15 PM EDT Office Visit Dermatology at [place] [address] [place] [address] Marek Bonilla MD [address] [place] [address] documented as of this encounter Results * [...] PFT FEV1/FVC Pre-BD Z-Score 0 COMPAS PFT VCA13-09 Actual Pre-BD 2.41 % COMPAS PFT PDE54-85 Predicted 1.8 % COMPAS PFT GVS29-25 Pre-BD % of Predicted 134 % COMPAS PFT FFP10-78 Pre-BD Z-Score 0.81 COMPAS PFT DLCO Hb [...] tissue documented in this encounter Care Teams Absorption Plant Operator Helper Relationship Specialty Start Date End Date Magdalena Acosta MD [address] [place] [address] PCP - General Family Medicine 02/05/23 documented as of this encounter
--- OUTSIDE RECORDS SUMMARY | 2024-04-11 14:18 | XMS_ITS | Encounter Summary ---
Author Organization [place] [id number] Care Team Providers Care Guest Services Manager Name Role Phone Magdalena Acosta MD Primary Care Provider [phone] Reason for Visit * Auth/Cert (Routine) Specialty Diagnoses / Procedures Referred By Contac t Referred To Contact Diagnoses Symptomatic severe aortic stenosis with low ejection fraction NSTEMI, CHF Haris Chua MD [facility] [place] [address] [facility] Referral ID Status Reason Start Date Expiration Date Visits Re quested Visits Authorized [id number] 1 1 Encounter Details Date Type Department Care Team (Late st Contact Info) Description 05/12/2023 7:35 AM EDT Anesthesia [place] [address] Lynda Mcgowan MD [facility] [place] [address] Alie Park MD [facility] [place] [address] Anesthesia Record Procedure Summary Procedure Name Responsible [...] cephalic vein (lateral side of arm), left; qmjf-owx-kcuvuf catheter system; Anatomical Landmarks; US Not Used; [...] RN LDA Cath/EP Sheath 05/12/23; 0733; 14 Chilean (Fr); Right; Femoral; Arterial 05/12/23 0733 by Guerda Bender, RN 05/12/23 0830 by Guerda Bender RN LDA Cath/EP Sheath 05/12/23; 0734; 6 Chilean (Fr); Right; Femoral; Venous 05/12/23 0734 by Guerda Bender RN 05/12/23 0817 by Guerda Bender RN LDA Cath/EP Sheath 05/12/23; 0734; 7 Chilean (Fr); Left; Femoral; Arterial 05/12/23 0734 by Guerda Bender, RN 05/12/23 0837 by Guerda Bender RN LDA Cath/EP Sheath 05/12/23; 0734; 6 Chilean (Fr); Left; Femoral; Venous 05/12/23 0734 by [...] Procedure Summary Date: 05/12/23 Room / Location: LOSS CONTROL CONSULTANT / [facility] Anesthesia Start: 734 Anesthesia [...] All Anesthesia Providers: Anesthesiologist: Lynda Mcgowan MD Leaf Sorter: Nico Graham MD Vitals Value Taken Time [...] 05/08/2023 ??? Mild coronary artery disease by [facility] 11/09/2022 05/08/2023 ??? Heart failure with [...] IMG S&I N/A 11/09/2022 CORONARY ANGIOGRAPHY; W [facility],POSSIBLE PCI (WRVU 5.6) performed by Nitesh Escobedo MD at [facility] ??? PRO AORTOPLAS FOR SUPRAVALV STEN N/A 09/21/2016 @AORTOPLASTY FOR SUPRAVALVULAR STENOSIS (WRVU 29.33) performed by Alirio Esparza MD at [facility] ??? PRO REPLACEMENT PROSTHETIC AORTIC VALVE OPEN W CARDIOPULMONARY BYPASS HOMOGRF/STENT N/A 09/21/2016 @REPLACE AORTIC VALVE, OPEN, W\CPB, W\PROSTHETIC VALVE (WRVU 41.32) performed by Alirio Esparza MD at [facility] Social History Tobacco Use [...] 3 general, with a(n) intravenous induction Add-on jtcjm-yo-uoeng TAVR. In cardiogenic shock. Has arterial line, [...] 4:15 PM EDT Office Visit Dermatology at [place] [address] [place] [address] Marek Bonilla MD [address], [place] [address] documented as of this encounter Visit Diagnoses [...] mL/hr documented in this encounter Care Teams Guest Services Manager Relationship Specialty Start Date End Date Magdalena Acosta MD [address] [place] [address] PCP - General Family Medicine 02/05/23 documented as of this encounter
--- OUTSIDE RECORDS SUMMARY | 2024-04-11 14:18 | XMS_ITS | Encounter Summary ---
[place] [address] Care Team Providers Care Turbo Operator Name Role Phone Magdalena Acosta MD Primary Care Provider [phone] Encounter Details Date Type Department Care Team [...] 4:15 PM EDT Office Visit Dermatology at [place] [address] [place] [address] Marek Bonilla MD [address], TODD A DERMATOLOGY [place], [place] [address] documented as of this encounter Visit Diagnoses Not on filedocumented in this encounter Care Teams Turbo Operator Relationship Specialty Start Date End Date Magdalena Acosta MD [address] [place] [address] PCP - General Family Medicine 02/05/23 documented as of this encounter
--- OUTSIDE RECORDS SUMMARY | 2024-04-11 14:18 | XMS_ITS | Encounter Summary ---
Author Organization [facility] Address [facility] [place] [address] Care Team Providers Care Casting Finisher Name Role Phone Magdalena Acosta MD Primary Care Provider [phone] Reason for Referral * Diagnostic Test (Routine) - Closed Specialty Diagnoses / Procedures Referred By Contac t Referred To Contact Cardiology Diagnoses S/P TAVR (transcatheter aortic valve replacement) Procedures Echocardiogram Transthoracic Vinod Juárez PA [facility] [place] [address] [facility] [place] [address] Referral ID Status Reason Start Date Expiration Date V isits Requested Visits Authorized [id number] Closed Specialty Service Requested 05/22/2023 05/21/2024 1 1 * Home Health Care (Routine) - Closed Specialty Diagnoses / Procedures Referred By Contac t Referred To Contact Diagnoses S/P TAVR (transcatheter aortic valve replacement) Alirio Hudson MD [facility] CARDIOTHORACIC SURGERY [address] [facility] & [address] [place] [address] Referral ID Status Reason Start Date Expiration Date V isits Requested Visits Authorized [id number] Closed Consult, Test & Treat 05/22/2023 11/18/2023 999 999 * Consultation (Routine) - Closed Specialty Diagnoses / Procedures Referred By Crispin maxwell Referred To Contact Cardiology Diagnoses S/P TAVR (transcatheter aortic valve replacement) Alirio Hudson MD [facility] CARDIOTHORACIC [place] [address] Cardiac Rehab, [address] [place] [address] Referral ID Status Reason Start Date Expiration Date V isits Requested Visits Authorized [id number] Closed Consult, Test & Treat 05/22/2023 11/18/2023 36 36 * Diagnostic Test (Routine) - Closed Specialty Diagnoses / Procedures Referred By Crispin maxwell Referred To Contact Cardiology Diagnoses Aortic valve stenosis, etiology of cardiac valve disease unspecified Procedures Echocardiogram Transthoracic Transesophageal Echocardiogram (YUSRA) Radha Hollins MD [facility] [place] [address] [facility] [place] [address] Referral ID Status Reason Start Date Expiration Date V isits Requested Visits Authorized [id number] Closed Specialty Service Requested 05/11/2023 05/10/2024 1 1 Reason for Visit * Auth/Cert (Routine) Specialty Diagnoses / Procedures Referred By Crispin maxwell Referred To Contact Diagnoses Symptomatic severe aortic stenosis with low ejection fraction NSTEMI, CHF Enrique Chua MD [facility] [place] [address] [facility] Referral ID Status Reason Start Date Expiration Date Visits Re quested Visits Authorized [id number] 1 1 Encounter Details Date Type Department Care Team (Latest Contact Info) Description 05/08/2023 9:14 AM EDT - 05/22/2023 10:46 AM EDT Hospital Encounter Heart and Vascular Unit Level 4 [place] [address] Enrique Chua MD [facility] [place] [address] Juan Luis Gonzalez MD [facility] [place] [address] Radha Hollins MD [facility] [place] [address] Alirio Hudson MD S/P TAVR (transcatheter aortic valve replacement) (Primary Dx); Aortic valve stenosis, etiology of cardiac valve disease unspecified; Symptomatic severe aortic stenosis with low ejection fraction; Heart failure with reduced ejection fraction due to heart valve disease; Mild coronary artery disease by [facility] 11/09/2022; Mixed connective tissue disease; Neck pain; [...] Patient Age: 67 y.o. Birthdate: 1955 Language: Panamanian Race: White Ethnicity: Not nor Admit Date: 05/08/2023 Discharge Date: 05/22/2023 Attending Physician: Alirio Hudson MD Follow-up Recommendations for Providers: Please continue routine management of cardiovascular risk factors including blood pressure, lipids,glucose, etc. Please note any medication changes. Patient to follow up with PCP, Magdalena Acosta MD, or Primary Physical Geographer, Avis Mejia MD, in ~ 7-10 days. Patient to follow up with [employer], Dr. Antelmo Sharma, in 2 weeks with an EKG, Echo, CBC, and CMP. Patient to follow up with Nephrology, their office to arrange. Jjtv-Xnfesd-st interval: After initial 30 day follow-up appointment , all TAVR patients will follow-up again in one year with an echo. 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 Secondary Diagnoses: Active Hospital Problems Diagnosis S/P TAVR (transcatheter aortic valve replacement) Cardiogenic shock Symptomatic severe aortic stenosis with low ejection fraction Mild coronary artery disease by [facility] 11/09/2022 Heart failure with reduced ejection fraction [...] Tube Placement Right 05/18/2023 Laure Ricks PA [facility] INTERVENTIONL RAD PRG CATH PLMT LEFT HEART CATH & ARTS W/INJ & ANGIO IMG S&I N/A 11/09/2022 CORONARY ANGIOGRAPHY; W [facility],POSSIBLE PCI (WRVU 5.6) performed by Mario Alberto Escobedo MD at [facility] CATH LABS PRG COMBINED RIGHT & LEFT HEART CATH W/INJ L VENTRICULOGRAPHY, IMG S&I N/A 05/12/2023 COMBINED RIGHT & LEFT HEART CATH,INC INJ FOR L VENTRICULOGRAPHY (WRVU 5.99) performed by Antelmo Sharma MD at [facility] CATH LABS PRO AORTOPLAS FOR SUPRAVALV STEN N/A 09/21/2016 @AORTOPLASTY FOR SUPRAVALVULAR STENOSIS (WRVU 29.33) performed by Alirio Hudson MD at [facility] MAIN OR PRO REPLACE AORTIC VALVE (TAVR/FEDERICO)PERC FEMORAL ARTERY APPROACH 05/12/2023 @TRANSCATHETER AORTIC VALVE REPLACEMENT (TAVR), PERCUTANEOUS FEMORAL (WRVU 22.47) performed by Alirio Hudson MD at [facility] CATH LABS PRO REPLACEMENT PROSTHETIC AORTIC VALVE OPEN W CARDIOPULMONARY BYPASS HOMOGRF/STENT N/A 09/21/2016 @REPLACE AORTIC VALVE, OPEN, W\CPB, W\PROSTHETIC VALVE (WRVU 41.32) performed by Alirio Hudson MD at [facility] MAIN OR Prior To Admission Medications [...] Major Procedures/Operations: 05/12/23: Successful right transfemoral TAVR Fsehy-yx-Wyaol with a 23 mm Lai 3 THV. Left coronary protection with left main MINNA. Hospital Course: #Severe prosthetic s/p valve in valve TF TAVR #Low coronary heights s/p left main stent for coronary protection #Type 2 NSTEMI, present on arrival, resolved #Acute decompensated HFrEF #Cardiogenic shock #EVANS / Cardiorenal syndrome Purnima Thacker was admitted to [facility] on 05/08/2023 via the Cardiology Service [...] TAVR and she was brought to the odd job laborer the following morning where Drs. Alirio [...] if you have questions. Please call your [employer]'s office if you have any discharge or drainage from your procedural sites. Your [employer], Dr. Antelmo Sharma and/or the Network Support Engineer may be reached at . Antibiotic prophylaxis: You will need to take antibiotics prior to many invasive tests and treatments, such as dental cleaning, which should be done every 6 months. Your primary care physician or your dentist can prescribe this medication. Please refer to the card with the [place] [employer] Guidelines for more information. You have been provided with a copy of this card. Please refer to the [place] [employer] Guidelines for more information. Good [...] friends, go to a movie, go to advent, etc. Heavy activities: No hunting, skiing, jogging, [...] should resume a low fat, low cholesterol, [place] [employer] Diet Driving: No restrictions. Shower/Bath: You may shower daily. No baths, soaking, or swimming for the first week. Wound care: Wash the sites daily with soap and rinse well, pat dry. Assess for any signs of infection such as increased redness, pain, warmth or drainage. Please call your concrete products dispatcher's office if you have any discharge or drainage from your procedural sites. If there is a lot of swelling, apply mamta wraps during the day and remove at bedtime. Elevate your legs when you are sitting. Home oxygen therapy: N/A Follow up appointments: Please schedule a follow-up appointment with your PCP, Magdalena Acosta MD, or Primary Physical Geographer in ~ 7-10 days. You have a follow-up appointment with your [employer], Dr. Antelmo Sharma, in 2 weeks with an EKG, Echo, and labs prior to your appointment. You will need follow-up with Nephrology, their office will arrange. Mmty-Pjzwan-xy interval: After initial 30 day follow-up appointment , all TAVR patients will follow-up again in one year with an echo. Cardiac Rehabilitation: Purnima Thacker was seen today regarding participation in the outpatient Phase 2 Cardiac Rehabilitation at [facility]. The patient agrees to a referral to this program. The referral will be sent at discharge and the patient should be contacted by the Program within 1- 2 weeks from discharge. Future Appointments and Orders Future Appointments and Orders Future Appointments Provider Department Dept Phone 07/29/2023 11:00 AM Magdalena Peralta MD Rheumatology at [facility] Arrive at: [employer] Operator Area 5C [phone] 02/11/2024 2:00 PM Marek Bonilla MD Dermatology at [place] Arrive at: [facility] [address] [phone] Future Orders Complete By Expires Type and Screen Future Surgery, [facility] SAME DAY PROGRAM ONLY) [[id number] Custom] 05/11/2023 Process Instructions: This test is intended ONLY for patients with upcoming surgery for testing prior to the day of surgery obtained through the same day program (4V or SDP). For ALL OTHER PATIENTS, order a Type and Screen (KIT818) This order includes the physician order for an ABO Recheck if requested by the Blood Bank. Scheduling Instructions: Comments: Questions: Date of surgery: CBC (with Diff) [[id number] Custom] 06/05/2023 12/05/2023 Process Instructions: INCLUDES: WBC, RBC, Hgb, Hct, Platelets, RBC Indices and Differential Scheduling Instructions: Comments: Questions: Comprehensive metabolic panel (non-fasting) [LAB17 Custom] 06/05/2023 08/20/2023 Process Instructions: INCLUDES: Calcium, T Protein, Albumin, AST, ALT, Alk Phos, T Bili, BUN, Creat, GFR, Glucose, Lytes. Scheduling Instructions: Comments: Questions: Echocardiogram Transthoracic [67747 CPT(R)] 06/05/2023 12/05/2023 Process Instructions: Scheduling Instructions: Questions: Where will study be performed?: [facility] Clinics Does the patient have Congenital Heart Disease?: Does patient require sedation?: GA rationale: EKG 12 Lead [25868 CPT(R)] 06/05/2023 12/05/2023 Process Instructions: Scheduling Instructions: Questions: Which location will this be performed?: [place] Is a rhythm strip needed?: No [facility] [employer] [EQ161 Custom] As directed Process Instructions: Scheduling Instructions: Questions: Device Needed: WALKER (E0143) Patient Height (cm): 154.9 cm (5' 0.98) Patient Weight: 75.4 kg (166 lb 3.2 oz) Diagnosis: Unsteady gait when walking Referral to Cardiac Rehab [MUF880 Custom] As directed Process Instructions: If no progress note charted, please enter Clinical details in comments. Scheduling Instructions: Questions: My question or request is: s/p TAVR. Cardiac rehab at [facility]. Referral to Home Health [REF34 Custom] As directed Process Instructions: If no progress note charted, please enter Clinical details in comments. Scheduling Instructions: Comments: DOCUMENTATION FOR VNA SERVICES PATIENT'S LOCATION: Purnima Thacker [address] [place] [phone] (home) Supervisor Publications Production's Name: Self and brother Raymond In discussion with the attending physician, it is certified that this patient is under his/her careand that MD, or an FOOD DEMONSTRATOR, COUNSELOR AT LAW, or PA who is working directly with him/her, had a ekay-nb-stvd encounter that meets the physician subj-vh-jifa encounter requirements with this patient on 05/22/2023. [...] for managing ADLs. HOME HEALTH CARE AGENCY: [facility]. [address] [place] [address] PHONE: [phone] FAX: [phone] Start of care: Ideally 24-48 hours after [...] Acosta MD [address] / [facility] [address] All VNA agencies which cover the area of patient's residence have been reviewed, either verbally joao writing, and patient has chosen the home health care agency noted. Questions: Disciplines Requested: Physical Therapy Occupational Therapy Discharge References/Attachments None Arrangements for VNA/home care: As above. (delete if no VNA) Signed: EKATERINA NAVARRETE [facility] Section of Cardiac Surgery Date: 05/22/2023 CC: Magdalena Acosta MD KamasMario Alberto MD [address] [place] [address] documented in this encounter Discharge Instructions * Patient Instructions* Vinod Juárez PA - 05/22/2023 9:32 AM EDT TAVR Discharge Instructions: Call your doctor if: You have a fever of greater than 101 degrees, shaking chills, if you develop redness or drainage from your procedure sites, or if you have questions. Please call your [employer]'s office if you have any discharge or drainage from your procedural sites. Your [employer], Dr. Antelmo Sharma and/or the Network Support Engineer may be reached at . Antibiotic prophylaxis: You will need to take antibiotics prior to many invasive tests and treatments, such as dental cleaning, which should be done every 6 months. Your primary care physician or your dentist can prescribe this medication. Please refer to the card with the [place] [employer] Guidelines for more information. You have been provided with a copy of this card. Please refer to the [place] [employer] Guidelines for more information. Good [...] friends, go to a movie, go to advent, etc. Heavy activities: No hunting, skiing, jogging, [...] should resume a low fat, low cholesterol, [place] [employer] Diet Driving: No restrictions. Shower/Bath: You may shower daily. No baths, soaking, or swimming for the first week. Wound care: Wash the sites daily with soap and rinse well, pat dry. Assess for any signs of infection such as increased redness, pain, warmth or drainage. Please call your concrete products dispatcher's office if you have any discharge or drainage from your procedural sites. If there is a lot of swelling, apply mamta wraps during the day and remove at bedtime. Elevate your legs when you are sitting. Home oxygen therapy: N/A Follow up appointments: Please schedule a follow-up appointment with your PCP, Magdalena Acosta MD, or Primary Physical Geographer in ~ 7-10 days. You have a follow-up appointment with your [employer], Dr. Antelmo Sharma, in 2 weeks with an EKG, Echo, and labs prior to your appointment. You will need follow-up with Nephrology, their office will arrange. Mkmc-Slohva-gj interval: After initial 30 day follow-up appointment , all TAVR patients will follow-up again in one year with an echo. Cardiac Rehabilitation: Purnima Thacker was seen today regarding participation in the outpatient Phase 2 Cardiac Rehabilitation at [facility]. The patient agrees to [...] ins ( tef) Haven Ba, PT Pager: [phone] Physical Therapy Inpatient Rehabilitation Department * Nico [...] 0600 and on the weekends please page [phone]. * Jory Paniagua - 05/20/2023 3:52 PM [...] vomiting Last Bowel Movement: 05/20/23 Jory Paniagua Manager Intern * Rashid Tong, OT - 05/20/2023 3:16 [...] Tube Placement Right 05/18/2023 Laure Ricks PA [facility] INTERVENTIONL RAD PRG CATH PLMT LEFT HEART CATH & ARTS W/INJ & ANGIO IMG S&I N/A 11/09/2022 CORONARY ANGIOGRAPHY; W [facility],POSSIBLE PCI (WRVU 5.6) performed by Mario Alberto Escobedo MD at [facility] CATH LABS PRG COMBINED RIGHT & LEFT HEART CATH W/INJ L VENTRICULOGRAPHY, IMG S&I N/A 05/12/2023 COMBINED RIGHT & LEFT HEART CATH,INC INJ FOR L VENTRICULOGRAPHY (WRVU 5.99) performed by Antelmo Sharma MD at [facility] CATH LABS PRO AORTOPLAS FOR SUPRAVALV STEN N/A 09/21/2016 @AORTOPLASTY FOR SUPRAVALVULAR STENOSIS (WRVU 29.33) performed by Alirio Hudson MD at [facility] MAIN OR PRO REPLACE AORTIC VALVE (TAVR/FEDERICO)PERC FEMORAL ARTERY APPROACH 05/12/2023 @TRANSCATHETER AORTIC VALVE REPLACEMENT (TAVR), PERCUTANEOUS FEMORAL (WRVU 22.47) performed by Alirio Hudson MD at [facility] CATH LABS PRO REPLACEMENT PROSTHETIC AORTIC VALVE OPEN W CARDIOPULMONARY BYPASS HOMOGRF/STENT N/A 09/21/2016 @REPLACE AORTIC VALVE, OPEN, W\CPB, W\PROSTHETIC VALVE (WRVU 41.32) performed by Alirio Hudson MD at [facility] MAIN OR Social History: Patient lives alone. Home Setup: Pt lives on one level with tub shower and three steps to enter. DME: none used IMPROVEMENT RN Baseline ADL/Mobility: Independent with ADLs and IADLs. [...] Vision & Perception: corrective lenses real time trader Communication: WFL Range of motion, strength, coordination: [...] Discharge Disposition (OT): swing bed rehabilitation facility, [facility] facility(vs home with support for IADLs) Other [...] Discharge planning. Total Minutes, Occupational Therapy: 28 (7048-7785) OT Evaluation Code Rationale: Diagnosis & Pertinent Co-Morbidities affecting Plan of Care: see PMHx Occupational Profile & Client History: Brief Expanded Extensive x Assessment of Occupational Performance: 1-3 performance deficits 3-5 performance deficits x 5 + performance deficits Clinical Decision Making: Low Moderate High x Clinical decision making of moderate complexity using standardized patient assessment instrument and measurable assessment of functional outcome. Pager: [phone] TONG MIKE OT 05/20/2023 Occupational Therapy Rehabilitation [...] 0600 and on the weekends please page [phone]. * Rylie Rodriguez MD - 05/19/2023 3:59 [...] and plan. Cynthia Blackburn MD Nephrology Pager: [phone] * Diana Espino - 05/19/2023 1:49 PM EDT Orthodontic Lab Technician Encounter Note Patient Name: Purnima Thacker : [id number] MR#: [id number] Admit Date: 05/08/2023 9:14 AM Hospital Day [...] returning home alone. Anticipated Discharge Disposition (PT): [facility] facility, swing bed rehabilitation facility Consult Recommendations: [...] as stated. Total Minutes, Physical Therapy: 38 (9209-5030) Henrik Dale CANDY Navarrete Pager: [phone] Physical Therapy Inpatient Rehabilitation Department * Nico [...] 0600 and on the weekends please page [phone]. * Laure Ricks PA - 05/19/2023 7:56 [...] Ricks PA-C Interventional Radiology IR Team Pager [phone] * Consuelo Espinoza RN - 05/18/2023 4:13 PM EDT ANGIO NURSING DATABASE Name: Purnima Thacker Date of : 1955 AGE: 67 y.o. Address: [address] [place] [phone] (home) Mobile: No relevant phone numbers on [...] Mild coronary artery disease by [facility] 11/09/2022 I25.10 Heart failure with reduced ejection [...] and plan. Cynthia Blackburn MD Nephrology Pager: [phone] * Magdalena Puri, ANURAG - 05/18/2023 10:51 AM EDT Images from the original note were not included. [facility] [address] [place], [place] [address] STRUCTURAL HEART DISEASE CONSULTATION NOTE PRIMARY CARE [...] stenosis. She is now status post TAVR Ltywo-wl-Pgdxh with a 23 mm Lai 3 THV 05/12/[address] Sharma. Preliminary findings: Successful right transfemoral TAVR Zezte-jr-Grbad with a 23 mm Lai 3 THV. [...] Events: - 05/12 Transferred to [facility] post- TAVR for pressor/inotropic support [...] ejection fraction Mild coronary artery disease by [facility] 11/09/2022 Heart failure with reduced ejection fraction [...] mg 81 mg Oral Daily Mara Serrano ANURAG 81 mg at 05/18/23 0826 ondansetron (pf) [...] 10 mg 10 mg Rectal Daily PRN EssexMara ernandez APRN melatonin tablet 6 mg 6 [...] stenosis. She is now status post TAVR Dbxjc-hv-Mfulo with a 23 mm Lai 3 THV [...] Magdalena Puri APRN Structural Heart Team Pager [phone] Team Office Please see addendum by Dr. Sharma for final plan and recommendations Associated attestation - Antelmo Sharma MD - 05/19/2023 10:52 PM EDT I have reviewed Magdalena Puri APRN's above history and I agree with the details as written. The assessment and plan were formulated in discussion with me and I agree with them as documented. Antelmo Sharma MD Pager [phone] * Nico Palacios PA - 05/18/2023 8:13 [...] 0600 and on the weekends please page [phone]. * Loli Hernandez, PT - 05/17/2023 5:27 [...] returning home alone. Anticipated Discharge Disposition (PT): [facility] facility, swing bed rehabilitation facility Consult Recommendations: [...] plan as stated. Time IN / OUT: 4531-1199 Total Minutes, Physical Therapy: 54 Billing Code: te-sx2, te-f, gait LOLI HERNANDEZ PT Pager: [phone] Physical Therapy Inpatient Rehabilitation Department * Cynthia [...] Well controlled. Cynthia Blackburn MD Nephrology Pager: [phone] * Mara Serrano, MACHINE PRESERVATIVE FILLER - 05/17/2023 8:26 AM EDT Cardiac Surgery Progress Note Punrima Thacker is a 67 y.o. female with [...] 0600 and on the weekends please page [phone]. * Guerda Del Valle - 05/16/2023 10:44 AM EDT Nutrition Services Note - Low Nutrition Acuity Purnima Thacker is a 67 y.o. female Reason for intervention: hospital day 9 Nutrition Plan: Continue diet order Encourage good PO Lasix and Zofran noted Added special serve: open containers Monitor weight Patient scheduled for a hospital day 9 nutrition evaluation. Unit Receptionist met with pt at bedside. Pt reports that her appetite and PO has much improved since admission. Denies nausea/vomiting or trouble chewing/swallowing. Unit Receptionist provided snack list but pt not interested in adding snacks at this time. Her only concern was that she is worried that she will eat too much which will cause too much pressure in her stomach. Unit Receptionist assured pt and suggested eating smaller but [...] Bowel Movement: 05/10/23 Guerda Del Valle Manager Intern * Vinod Juárez PA - 05/16/2023 10:19 [...] Assessment/Plan: 67 y.o. female 4 Days Post-Op Jaent TF TAVR for prosthetic . #Severe prosthetic [...] 0600 and on the weekends please page [phone]. * Michael Jeffers MD - 05/16/2023 8:11 AM EDT Images from the original note were not included. Hypertension-Nephrology Inpatient Follow-up Purnima Thacker [id number] 1955 ID: 67 y.o. old female seen [...] IRONSAT 12 (L) 05/16/2023 SFOLATE >20.0 07/03/2022 [id number] 07/03/2022 Lab Results Component Value Date [...] Dr. Ayoub. Please contact me at phone: [phone] or pager: [phone] with any questions. Michael Jeffers MD Nephrology [...] -Nephrology consulted, labs and renal US ordered -Frederick removed, ambulated around the unit -bilateral pleural [...] 0600 and on the weekends please page [phone]. * Hortencia Cody MD - 05/15/2023 2:07 [...] not included. Hypertension-Nephrology Inpatient Follow-up Purnima Thacker [id number] 1955 ID: 67 y.o. old female seen [...] HGB 7.8 (L) 05/13/2023 SFOLATE >20.0 07/03/2022 [id number] 07/03/2022 Lab Results Component Value Date [...] Dr. Ayoub. Please contact me at phone: [phone] or pager: [phone] with any questions. Michael Jeffers MD Nephrology [...] outlined inthis evaluation. HAVEN BA, PT Pager: [phone] Physical Therapy Inpatient Rehabilitation Department Time IN / OUT: 4648-0538 Total time: Total Minutes, Physical Therapy: 30 [...] 0600 and on the weekends please page [phone]. * Antelmo Sharma MD - 05/14/2023 7:56 AM EDT Images from the original note were not included. Former[facility] [place] [address] STRUCTURAL HEART DISEASE CONSULTATION NOTE PRIMARY CARE [...] stenosis. She is now status post TAVR Azbvn-tn-Wrbqh with a 23 mm Lai 3 THV 05/12/[address] Sharma. Preliminary findings: Successful right transfemoral TAVR Tshrw-tm-Ktzeg with a 23 mm Lai 3 THV. [...] ejection fraction Mild coronary artery disease by [facility] 11/09/2022 Heart failure with reduced ejection fraction [...] stenosis. She is now status post TAVR Kxfip-vp-Ohvuk with a 23 mm Lai 3 THV 05/12/[address] Sharma. Janet TAVR case notable for coronary LAD protective MINNA. Status post TAVR, the patient was transferred to [facility] for pressor and inotropic support. Pressors weaned overnight 05/12. Cardiac indices by thermodilution remained >3 with continued Milrinone 0.125 mcg/kg/min prior to PAC removal. EKG todayNSR with stable TN/QRS intervals. Hemoglobin slowly down-trending (8.2-> 7.8-> 7.2). [...] Dale ANURAG Kaplan Structural Heart Team Pager [phone] Team Office Please see addendum by Dr. [...] exposure. Nephrology consultationtoday. Antelmo Sharma MD Pager [phone] * Antelmo Cardenas RN - 05/14/2023 5:18 AM EDT Pt AOx4, complaining of mild/moderate generalized pain (states her Meloxicam is effective at home) currently refusing prn oxycodone. NAEON, hemodynamically stable on Milrinone, Maps >65, ST in dkn691's down to NSR with frequent multifocal PVC's. [...] the original note were not included. Formerly [facility] [place] [address] STRUCTURAL HEART DISEASE PROGRESS NOTE PRIMARY CARE [...] stenosis. She is now status post TAVR Aajjr-cg-Tvlji with a 23 mm Lai 3 THV 05/12/[address] Sharma. Preliminary findings: Successful right transfemoral TAVR Fefpm-il-Dlluw with a 23 mm Lai 3 THV. [...] or perforation. Interval Events: - Transferred to [facility] post- TAVR for pressor/inotropic support [...] ejection fraction Mild coronary artery disease by [facility] 11/09/2022 Heart failure with reduced ejection fraction [...] stenosis. She is now status post TAVR Urxhz-px-Whxsc with a 23 mm Lai 3 THV 05/12/[address] Sharma. Janet TAVR case notable for coronary LAD protective MINNA. Status post TAVR, the patient was transferred to [facility] for pressor and inotropic support. Pressors weaned overnight. Cardiac indices by thermodilution remain greater than 3 with continued Milrinone 0.125 mcg/kg/min. EKG today NSR with stable TN/QRS intervals. Hemoglobin 7.8 today from 8.5, likely [...] Brody Kaplan APRN Structural Heart Team Pager [phone] Team Office Please see addendum by Dr. [...] DAPT moving forward. Antelmo Sharma MD Pager [phone] * Bonita Miguel PA - 05/13/2023 8:30 AM EDT Cardiac Surgery Progress Note Purnima Thacker is a 67 y.o. 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 PMH of s/p tissue AVR (2017), mixed connective tissue disease HTN, HLD, NICOLAS, diverticulosis, rosacea, essential tremor, and depression. 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 Tubes/Lines/Drains: Frederick, RIJ, A-line, Art, PIV Assessment/Plan: 67 y.o. [...] 0600 and on the weekends please page [phone]. * Onelia Schwartz MD - 05/12/2023 1:44 [...] ejection fraction Mild coronary artery disease by [facility] 11/09/2022 Heart failure with reduced ejection fraction [...] FiO2 weaned to 40%. 1105: ABG 7.34/42/73/22 3847-9473: SBT performed and passed on these settings [...] PCP: Magdalena Acosta MD PCP phone number: [phone] Date of Admission: 05/08/2023 ( Hospital Day [...] 1447 PHART -- 7.34* 7.34* -- -- KUM1WUG -- 30* 30* -- -- PO2ART -- 72* 81* -- -- AKQ3GTL -- 16.0* 15.7* -- -- LACTATEVEN 2.4* 2.7* 2.7* 4.8* 2.9* VBG (Venous Blood Gas) Recent Labs 05/12/23 0700 05/12/23 0318 05/12/2310505/11/23193905/11/23 1447 LACTATEVEN 2.4* 2.7* 2.7* 4.8* 2.9* Mixed Venous Sat Recent Labs 05/12/23 0508 05/12/23 0321 05/12/23 0114 05/12/23 0030 [id number] 30.7 32.7 37.3 25.1 Objective: Vitals Last [...] who have questions please contact the health director of patient care that requested your imaging first. Electronically signed by: ALIX RUVALCABA MD, [facility] ([phone]), at 05/10/2023 1:[address] Cardiac for [...] who have questions please contact the health director of patient care that requested your imaging first. Electronically signed by: Cullen Narayanan MD, [facility] ([phone]), at 05/11/2023 4:[address] Angiogram Abdomen [...] who have questions please contact the health director of patient care that requested your imaging first. Electronically signed by: Eileen Gomes MD, [facility] ([phone]), at 05/11/2023 2:42 PM XR Chest One [...] who have questions please contact the health director of patient care that requested your imaging first. Chest [...] who have questions please contact the health director of patient care that requested your imaging first. Assessment [...] and inotrope. She is planned for a ynqrc-da-vvbhd TAVR this morning, which should hopefully improve [...] MD, FACP, FACC Section of Cardiovascular Medicine [facility] Laborer Petroleum Refinerybranch service specialist [facility] * Noreen Deutsch RN - 05/12/2023 [...] ejection fraction Mild coronary artery disease by [facility] 11/09/2022 Heart failure with reduced ejection fraction [...] 05/11/2023 4:11 PM EDT Reported off to SWEEPER OPERATOR HIGHWAYS and pt transferred over in the bed for higher level of care. * Antelmo Sharma MD - 05/11/2023 9:45 AM EDT Images from the original note were not included. [place]ly [facility] [place] [address] STRUCTURAL HEART DISEASE CONSULTATION NOTE PRIMARY CARE [...] who had been referred for possible TAVR wxcft-xh-zbtvs evaluation. Her primary symptoms are of dyspnea [...] from [facility]. 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 [...] ejection fraction Mild coronary artery disease by [facility] 11/09/2022 Heart failure with reduced ejection fraction [...] hour(s)) Lactate, whole blood, send to lab ([facility] Result Value Ref Range Lactate WB 3.1 (H) 0.5 - 2.2 mmol/L Heparin (unfractionated) Level Result Value Ref Range Heparin UFH Level 0.46 IU/mL Lactate, whole blood, send to lab ([facility]) Result Value Ref Range [...] leads Confirmed by MD Harshil, Enrique Bell ([id number]) on 05/10/2023 8:11:46 AM Cardiac Cath 11/09/2022 [...] HFrEF, she was transferred to [facility] this afternoon for further management. TAVR CT imaging support for adequate ileofemoral access. Given her acute deterioration today, will planfor RTF TAVR on 05/12/2023. Brody Kaplan ANURAG Structural Heart Disease Pager [phone] Please see addendum by Dr. Sharma for [...] signed and dated. Antelmo Sharma MD Pager [phone] * Harini Lance MD - 05/11/2023 6:06 AM EDT Images from the original note were not included. Cardiology Progress Note Patient info: Name: Purnima Thacker : 1955 PCP: Magdalena Acosta MD PCP phone number: [phone] Date of Admission: 05/08/2023 ( Hospital Day [...] who have questions please contact the health director of patient care that requested your imaging first. Electronically signed by: ALIX RUVALCABA MD, [facility] ([phone]), at 05/10/2023 1:25 PM TTE: 05/08 -Left [...] 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) Mild coronary artery disease by [facility] 11/09/2022 Hyperlipidemia, unspecified NICOLAS (obstructive sleep apnea) [...] PCP: Magdalena Acosta MD PCP phone number: [phone] Date of Admission: 05/08/2023 ( Hospital Day [...] 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) Mild coronary artery disease by [facility] 11/09/2022 Hyperlipidemia, unspecified NICOLAS (obstructive sleep apnea) [...] PCP: Magdalena Acosta MD PCP phone number: [phone] Date of Admission: 05/08/2023 ( Hospital Day [...] Gas) No results found for: PHART, PO2ART, UJQ2UNQ, JMZ7WCQ Microbiology: Microbiology Results (Last 30 days) No [...] PPx: Diet: Daily Healthy Menu Choices/Cardiac diet ([facility]-Diet) Lines: Peripheral IV Line - [...] 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) Mild coronary artery disease by [facility] 11/09/2022 Hyperlipidemia, unspecified NICOLAS (obstructive sleep apnea) [...] Mild coronary artery disease by [facility] 11/09/2022 I25.10 Heart failure with reduced ejection fraction due to heart valve disease I50.20, I38 Cardiogenic shock R57.0 S/P TAVR (transcatheter aortic valve replacement) Z95.2 Past Medical History: Diagnosis Date Anemia Past Surgical History: Procedure Laterality Date PRG CATH PLMT LEFT HEART CATH & ARTS W/INJ & ANGIO IMG S&I N/A 11/09/2022 CORONARY ANGIOGRAPHY; W [facility],POSSIBLE PCI (WRVU 5.6) performed by Mario Alberto Escobedo MD at [facility] PRO AORTOPLAS FOR SUPRAVALV STEN N/A 09/21/2016 @AORTOPLASTY FOR SUPRAVALVULAR STENOSIS (WRVU 29.33) performed by Alirio Hudson MD at [facility] MAIN OR PRO REPLACEMENT PROSTHETIC AORTIC VALVE OPEN W CARDIOPULMONARY BYPASS HOMOGRF/STENT N/A 09/21/2016 @REPLACE AORTIC VALVE, OPEN, W\CPB, W\PROSTHETIC VALVE (WRVU 41.32) performed by Alirio Hudson MD at [facility] OR Social History and Habits: [...] Verio test strips Strip USE DAILY OneTouch DelFID3 Plus Lancet 33 gauge Misc USE DAILY [...] Mild coronary artery disease by [facility] 11/09/2022 I25.10 Heart failure with reduced ejection fraction due to heart valve disease I50.20, I38 Cardiogenic shock R57.0 S/P TAVR (transcatheter aortic valve replacement) Z95.2 Past Medical History: Diagnosis Date Anemia Past Surgical History: Procedure Laterality Date PRG CATH PLMT LEFT HEART CATH & ARTS W/INJ & ANGIO IMG S&I N/A 11/09/2022 CORONARY ANGIOGRAPHY; W [facility],POSSIBLE PCI (WRVU 5.6) performed by Mario Alberto Escobedo MD at [facility] CATH LABS PRO AORTOPLAS FOR SUPRAVALV STEN N/A 09/21/2016 @AORTOPLASTY FOR SUPRAVALVULAR STENOSIS (WRVU 29.33) performed by Alirio Hudson MD at [facility] MA[facility] OR PRO REPLACEMENT PROSTHETIC AORTIC VALVE OPEN W CARDIOPULMONARY BYPASS HOMOGRF/STENT N/A 09/21/2016 @REPLACE AORTIC VALVE, OPEN, W\CPB, W\PROSTHETIC VALVE (WRVU 41.32) performed by Alirio Hudson MD at [facility] OR Social History and Habits: [...] days, which prompted her to present to [facility]. She also endorses some intermittent retrosternal chest pain with exertion.She endorses some dizziness with exertion, but has not gotten faint or passed out. At [facility] she was noted to be afebrile, blood pressure 105/64, HR 120s, satting 95% on 2L NC. Labs from [facility] are below, of note [...] 89/59, which prompted the transfer to us. [facility] labs: CBC - Hgb 10.5 CMP - Cr 1.1 BNP 08758 HsTrop 1358 Lactate 1.6 D-dimer 1183 Interval [...] Code Status: Attempt Cardiopulmonary Resuscitation - Inpatient [facility] Roman Reid MD Internal Medicine PGY-1 Pager [phone], M1-S1 Service Associated attestation - Juan Luis Gonzalez MD - 05/08/2023 10:00 PM EDT Cardiology Attending Addendum Active Hospital Problems Diagnosis Symptomatic severe aortic stenosis with low ejection fraction Heart failure with reduced ejection fraction due to heart valve disease Mild coronary artery disease by [facility] 11/09/2022 Hyperlipidemia, unspecified History of aortic valve [...] PCP: Magdalena Acosta MD PCP phone number: [phone] Date of Admission: 05/08/2023 ( Hospital Day 0 days ) Attending:Enrique Chua MD ID: Purnima Thacker is a 67 y.o. female w/ PMH of s/p bioprosthetic AVR in 2016 with recent concern for severe restenosis, HTN, HLD, mixed connective tissue disease, who presents in transfer from [facility] with worsening BONILLA and [...] four days, which promptedher to present to [facility]. She also endorses some intermittent retrosternal chest pain with exertion. She endorses some dizziness with exertion, but has not gotten faint or passed out. At [facility] she was noted to be afebrile, blood pressure 105/64, HR 120s, satting 95% on 2L NC. Labs from [facility] are below, of note [...] 89/59, which prompted the transfer to us. [facility] labs: CBC - Hgb 10.5 CMP - Cr 1.1 BNP 58811 HsTrop 1358 Lactate 1.6 D-dimer 1183 Vasoactive [...] tissue disease, who [facility] and weight [...] #Routine Diet: Daily Healthy Menu Choices/Cardiac diet ([facility]-Diet) DVT Prophylaxis: heparin gtt GI [...] remains HD stable, can transfer out of [facility]. -Structural Heart consult; will need [...] to the planned procedure. Hand Hygiene: The escape wheel tooth cutter did perform hand hygiene prior to arterial [...] Successful arterial line placement. Crispin Timmons MD Network Support Engineer Associated attestation - Onelia Schwartz [...] (flow was non-pulsatile) and appearance of blood. Frederick-Marily catheter was placed and locked at 55 [...] information for follow-up [facility], [place] [address] [place] [address] Cardiac Rehab, [facility] [address] [place] [address] [facility] [address] [place] [address] Transportation: family or friend will provide *Brother [...] Type: *No Product type* / Secondary Insurance: [employer] [place] Prescription Coverage: Yes This plan was formulated with input from patient, family (please identify family/friend involved ifapplicable) and team. All are in agreement with plan. Aliza Martino MSN-Ed, RN ACM brass reclaimer Office of Care Management Pager #[phone] * [...] Chaudhary RN - 05/21/2023 4:46 PM EDTSummary: [place] [facility] referral OFFICE OF CARE MANAGEMENT [...] Type: *No Product type* / Secondary Insurance: [employer] [place] Last Physical Therapy Recommendation: (Home with assist from Brother; Friend arriving Tues) with walker, front wheeled Last Occupational Therapy Recommendation: swing bed rehabilitation facility, fci facility (vs home with support for IADLs) with walker, front wheeled, shower chair Plan for discharge is: Home w/ Services Outpatient Agency/Support Group Needs: Homecare agency Home Health Services: Physical Therapy, Occupational Therapy Agency Referrals: I have met with the patient to: discuss discharge planning needs. describing our affiliations within the [facility] and educate about their right to choose where referrals are sent. provide a list of Home Health Agencies / Durable Medical Equipment vendors which serve their preferred geographic area. They have requested referrals to: [facility] [address] [place] [address] Ortho Care Located @ [place], [place] Note routed to a Customer Solutions Supervisor who will communicate referrals to facilities and provide any required information. Transportation: family or friend will provide *Brother Raymond on Tuesday 05/22 at 1000 Barriers to discharge: Does not have home 22/02 assist available until tomorrow Tuesday 05/22 Plan going forward: Discharge home into the 22/02 home care of brother Raymond with [facility] and [place] [facility] PT/OT services on Tuesday 05/22 [...] Attending: All Staff: Staff Role Juanita Almaguer Iv Technician Laure Ricks PA Physician Tube Laser Operator Magdalena Rodriguez sheepskin pickler Nurse Consuelo Espinoza, sheepskin pickler Nurse Post-operative diagnosis/Indication: Right pleural effusion Name [...] Type: *No Product type* / Secondary Insurance: [employer] [facility] Last Physical Therapy Recommendation: fci facility, swing bed rehabilitation facility with to be determined Last Occupational Therapy Recommendation: with Plan for discharge is: Halfway Facility / Swing Outpatient Agency/Support Group Needs: None Agency Referrals: Based on discussions with the multi-disciplinary healthcare team, the patient would benefit from SNF / Swing level of care at discharge. I have met with the patient to: discuss discharge planning needs. provide the [facility], Office of Care Management letter from the Telegraph Repeater Technician pertaining to rehab referrals. provide a letter describing our affiliations within the [facility] and educate about their right to choose where referrals are sent. provide the CMS Star Quality Rating handout. review the different levels of rehab including SNF, swing, and acute. provide a list of facilities within their preferred geographic area. request that they provide at least three choices for referral. They have requested referrals to: [facility] [address] [place] [address] [facility]) [address] [place] [address] (Accepts pts only after exhausting all other local SNF options) [facility] ([facility]) ([facility]) [address] [place] [address] PHONE: [phone] FAX: [phone] [facility] ([facility]) [facility]) [address] [place] [address] PHONE: [phone] FAX: [phone] Note routed to a Customer Solutions Supervisor who will communicate referrals to facilities and [...] metoprolol given. Uneventful shift for pt, call monslave within reach. Possible d/c to rehab tomorrow [...] Crenshaw RN - 05/17/2023 10:[address] [facility] CARDIAC REHABILITATION Purnima Thacker was seen today regarding participation in the outpatient Phase 2 Cardiac Rehabilitation at [facility]. The patient agrees to [...] the original note were not included. [facility] NEPHROLOGY/HYPERTENSION CONSULT NOTE PATIENT: Purnima Thacker [...] in her course. She ultimately underwent a wkuoo-kf-gfvtk procedure on and tolerated it well (see [...] 1423 05/12/23 1105 PHART 7.39 7.37 7.34* AHU7ZDY 33* 36 42 PO2ART 101 102 73* DSM9TLC 19.5* 20.4 22.1 LACTATEVEN 1.5 1.8 2.8* BZT9YID 40 40 40 PFRATIOART2 252 255 182 VBG (Venous Blood Gas) Recent Labs 05/12/23 1557 05/12/23 1423 05/12/23 1105 LACTATEVEN 1.5 1.8 2.8* Mixed Venous Sat Recent Labs 05/12/23 1425 05/12/23 0508 05/12/23 0321 T4PTID6 59.9 30.7 32.7 LFT's: Recent Labs 05/14/23 0110 05/13/23 0115 05/12/23 0600 BILITOT 0.4 0.5 0.9 BILIDIR -- 0.3 -- ALBUMIN 3.6 3.0* 3.5 ALKPHOS 86 85 100 ALT 437* 903* 1,174* AST 319* 792* 1,435* No results found for: UPROTCREAT No results found for: TPROTEINPEP, ALBELECT No results found for: MICROALBUR, VUVB46ANB No results found for: HA1C Lab Results Component Value Date CALCIUM 8.5 05/14/2023 PHOS 4.7 (H) 05/08/2023 No results found for: 25OHVITD MICROBIOLOGY: ProcedureComponentValueUnitsDate/TimeUrine culture [[id number]]Collected: 05/11/231921Lab Status: Final resultSpecimen: Clean Catch UrineUpdated: [...] consulted for assessment if this patient needs CONTROL ELECTRICIAN. Atthis time, we can likely hold off on CONTROL ELECTRICIAN. Her volume status appears sufficient and her metabolic kanwal angements with mild acidosis is not too profound. Patient does not have significant uremic symptoms. We can hold off for today, but the patient is a high risk candidate for needing CONTROL ELECTRICIAN in future daysespecially if her Cr curve trends the direction it is for the next several days. S/p Fltod-ay-Qqprl TF TAVR: Management per cardiology. On milrinone gtt. PLAN: - Please obtain following diagnostics: renal US, urinalysis, urine prot/Cr ratio, urine albumin/Cr ratio, CK, uric acid, serum osmol, daily VBGs - No acute indications for CONTROL ELECTRICIAN/dialysis. We will keep close eye on Cr trend, volume status, and metabolics to ensure patient still does not need CONTROL ELECTRICIAN as she ensues intrinsic renal recovery - [...] M.H.A., M.A. PGY-V Nephrology-Hypertension Fellow Page # [phone] [facility] [address] 2nd floor, Candy Depositing Machine Operator [address] [place] [address] * Care Management - Mario Alberto Olmos [...] *No Product type* / Secondary Insurance: [facility] Plan for discharge is: Home w/o Services [...] TAVR at 730. Returned to [facility] at 0945. Was intubated in the odd job laborer due to agitation. Maintained bedrest for [...] Operative Note Patient Name: Purnima Thacker : [id number] MR#: [id number] Case Date: 05/12/2023 Surgeon: Surgeon(s) and Role: [...] procedure Note: Patient Name: Purnima Thacker : [id number] MR#: [id number] Case Date: 05/12/2023 Operators Surgeon: Surgeon(s) and [...] main with 4.0 x 30 mm Resolute Hyde Drug Eluting Stent Perclose x1 + Angio-seal 8 Fr x1, RFA Manual pressure, LFA Manual pressure, LFV Endotracheal intubation (performed by cardiac anesthesia) Preliminary findings: Successful right transfemoral TAVR Dvrtr-dh-Unljv with a 23 mm Lai 3 THV. [...] MD, M.Sc. Structural Heart Disease Fellow Pager :[phone] Antelmo Sharma MD Pager [phone] * Op Note - Alirio Hudson MD - 05/12/2023 7:37 AM EDT Preop Diagnosis: Severe aortic stenosis, symptomatic. Postop Diagnosis: Same. Procedure: Transfemoral TAVR procedure with 23mm valve. Surgeon: Alirio Hudson M.D. Physical Geographer: Danny CULP Procedure: The patient was taken to the odd job laborer. The patient had monitored anesthesia care. 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 [facility]ly [facility] [place] [address] STRUCTURAL HEART DISEASE CONSULTATION NOTE PRIMARY CARE [...] who had been referred for possible TAVR affqu-bf-iinkk evaluation. Her primary symptoms are of dyspnea [...] from [facility]. 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 PROBLEM LIST: Patient Active Problem List Diagnosis Symptomatic severe aortic stenosis with low ejection fraction Mild coronary artery disease by [facility] 11/09/2022 Heart failure with reduced ejection fraction [...] hour(s)) Lactate, whole blood, send to lab ([facility] Result Value Ref Range [...] leads Confirmed by MD Harshil, Enrique Bell ([id number]) on 05/10/2023 8:11:46 AM Assessment and Plan: [...] Antelmo Sharma MD Structural Heart Disease Pager [phone] * Plan of Care - Sarahi Nice RN - 05/10/2023 3:55 AM EDTSumavis: VALDO Note and Care Plan Sarahi Nice RN assumed care of pt at time of their arrival to room 362 from [facility]. Pt voices shortness of breath [...] Transfer from another hospital Location: admitted from [facility] Reason for Hospitalization: Critical [...] 180 days) Any patient receiving care in [place] must abide by [place] law. The hierarchy [...] (i) The agent with financial power of assistant district attorney or a conservator appointed in accordance [...] Current DME: none Home Address confirmed as: [address] [place] [id number] Social & Family Supports: All names listed [...] Type: *No Product type* / Secondary Insurance: [facility] [place] ONLY if patient has Medicare A&B - Does this patient have secondary insurance?: Yes ; Prescription Coverage: Yes Preferred Pharmacy: updated to [facility] in [facility] Status: Patient is a : No Primary Care Provider confirmed: Magdalena Acosta MD [phone] Patient/Caregiver Goals of Treatment: Potential Needs for [...] of a 2 story home with 2 [id number]. Patient is independent with ADL's [...] of care planning. Alie Bradshaw RN, CM Pager-[phone] * Plan of Care - Emily Lucero RN - 05/08/2023 2:54 PM EDT OUTCOME EVALUATION NOTE: OUTCOME SUMMARY: Pt arrived from [facility]. A&O, no c/o pain [...] 4:15 PM EDT Office Visit Dermatology at [facility] [address] [place] [phone] Marek Bonilla MD [address], [place] [address] Scheduled Referrals Name Type Priority Associated Diagnoses [...] Heart Cath W/Inj L Ventriculography, Img S&I (01433) 05/12/2023 7:37 AM EDT Aortic valve stenosis, [...] COLOR DOPP (07/08/2023 12:15 PM EST) [facility] EF 20 HEARTLAB SYSTEM Anatomical Region Laterality Modality Cardiac Other 07/08/2023 10:3 1 AM EST Narrative 07/08/2023 12:26 PM EST [address] [place] [address] ? Echocardiogram Report Name: PURNIMA THACKER ?Study Date: 07/08/2023 10:31 AMBP: 118/60 mmHg ? [facility] 1955 ? Height: 155 cm ? Account: [id number] Age: 67 yrs ? Weight: 74 kg [...] no significant change (post-procedure). Procedure Limited - 83647. Doppler - 68205. Color Doppler - 90618. Satisfactory quality. This study is limited because [...] Note Lee Kincaid MD - 07/08/2023 [address] [place] [address] Echocardiogram Report Name: LASHELL THACKERDARWIN Mejias Study Date: 0:31 AMBP: 118/60 mmHg Patient Location: : 1955 Height: 155 cm Account: [id number] Age: 67 yrs Weight: 74 kg Gender: [...] is nosignificant change (post-procedure). Procedure Limited - 74394. Doppler - 26559. Color Doppler - 12729. Satisfactoryquality. This study is limited because of [...] EST) Glucose 93 65 - 199 mg/dL [facility] Comment:Diabetes: >=200 mg/d L plus symptoms Blood Urea Nitrogen 19(H) 8 - 18 mg/dL [facility] Creatinine 0.81 0.70 - 1.20 mg/dL [facility] Sodium 142 135 - 145 mmol/L [facility] Potassium 3.8 3.5 - 5.0 mmol/L [facility] Comment: Please note: ??Patients with WBC >100,000 may have falsely elevated Potassium levels. ??For accurate Potassium quantification in these patients send serum separator tube (gold top) for subsequent determinations. ??Contact the Clinical Chemistry Laboratory if there are any questions. Chloride 104 98 - 107 mmol/L [facility] Carbon Dioxide 26 22 - 31 mmol/L [facility] Anion Gap 12 5 - 15 mmol/L [facility] Calcium 10.2 8.5 - 10.5 mg/dL [facility] Protein, Total 7.4 6.1 - 8.0 g/dL [facility] Albumin 4.1 3.2 - 5.2 g/dL [facility] Aspartate Aminotransferase 24 0 - 30 unit/L [facility] Alanine Aminotransferase 12 0 - 30 unit/L [facility] Alkaline Phosphatase 93 35 - 105 unit/L [facility] Bilirubin, Total 0.3 0.2 - 1.3 mg/dL [facility] Est Glomerular Filtration Rate 80 >=60 mL/min/1. 73 m?? [facility] Comment: This patient's estimated GFR [...] Lab Alirio Hudson MD CHEMISTRY ORDERABLE S [facility] [place] [address] * (ABNORMAL) Basic Metabolic Panel (non-fasting) (05/22/2023 3:57 AM EDT) Glucose 88 65 - 199 mg/dL [facility] Comment:Diabetes: >=200 mg/d L plus symptoms Blood Urea Nitrogen 21(H) 8 - 18 mg/dL [facility] Creatinine 0.69(L) 0.70 - 1.20 mg/dL [facility] Sodium 136 135 - 145 mmol/L [facility] Potassium 3.6 3.5 - 5.0 mmol/L [facility] Comment: Please note: ??Patients with WBC >100,000 may have falsely elevated Potassium levels. ??For accurate Potassium quantification in these patients send serum separator tube (gold top) for subsequent determinations. ??Contact the Clinical Chemistry Laboratory if there are any questions. Chloride 102 98 - 107 mmol/L [facility] Carbon Dioxide 23 22 - 31 mmol/L [facility] Anion Gap 11 5 - 15 mmol/L [facility] Calcium 8.6 8.5 - 10.5 mg/dL [facility] Est Glomerular Filtration Rate 95 >=60 mL/min/1. 73 m?? [facility] Comment: This patient's estimated GFR [...] Lab Mara Serrano ANURAG CHEMISTRY ORDERABL ES [facility] [place] [address] * (ABNORMAL) Basic Metabolic Panel (non-fasting) (05/21/2023 5:06 AM EDT) Glucose 87 65 - 199 mg/dL [facility] Comment:Diabetes: >=200 mg/d L plus symptoms Blood Urea Nitrogen 25(H) 8 - 18 mg/dL [facility] Creatinine 0.84 0.70 - 1.20 mg/dL [facility] Sodium 136 135 - 145 mmol/L [facility] Potassium 3.6 3.5 - 5.0 mmol/L [facility] Comment: Please note: ??Patients with WBC >100,000 may have falsely elevated Potassium levels. ??For accurate Potassium quantification in these patients send serum separator tube (gold top) for subsequent determinations. ??Contact the Clinical Chemistry Laboratory if there are any questions. Chloride 102 98 - 107 mmol/L [facility] Carbon Dioxide 26 22 - 31 mmol/L [facility] Anion Gap 8 5 - 15 mmol/L [facility] Calcium 8.9 8.5 - 10.5 mg/dL [facility] Est Glomerular Filtration Rate 76 >=60 mL/min/1. 73 m?? [facility] Comment: This patient's estimated GFR [...] Resulting Agency Comment Spec In Lab [facility] MACHINE PRESERVATIVE FILLER CHEMISTRY ORDERABL ES Performing Organization Address City/[facility]/ZIP Co de Phone Number [facility] [place] [address] * Lavender Tube HOLD (05/20/2023 2:52 AM EDT) Lavender Hold Sample in lab. [facility] Blood Venous Draw / Unknown 05/20/2023 2:52 AM EDT 05/20/2023 3:04 AM EDT [facility] MACHINE PRESERVATIVE FILLER HEMATOLOGY ORDERAB LES Performing Organization Address City/[facility]/ZIP Co de Phone Number [facility] [place] [address] * (ABNORMAL) Basic Metabolic Panel (non-fasting) (05/20/2023 2:52 AM EDT) Glucose 152 65 - 199 mg/dL [facility] Comment:Diabetes: >=200 mg/d L plus symptoms Blood Urea Nitrogen 33(H) 8 - 18 mg/dL [facility] Creatinine 0.82 0.70 - 1.20 mg/dL [facility] Sodium 137 135 - 145 mmol/L [facility] Potassium 3.7 3.5 - 5.0 mmol/L [facility] Comment: Please note: ??Patients with WBC >100,000 may have falsely elevated Potassium levels. ??For accurate Potassium quantification in these patients send serum separator tube (gold top) for subsequent determinations. ??Contact the Clinical Chemistry Laboratory if there are any questions. Chloride 99 98 - 107 mmol/L [facility] Carbon Dioxide 22 22 - 31 mmol/L [facility] Anion Gap 16(H) 5 - 15 mmol/L [facility] Calcium 9.0 8.5 - 10.5 mg/dL [facility] Est Glomerular Filtration Rate 78 >=60 mL/min/1. 73 m?? [facility] Comment: This patient's estimated GFR [...] Agency Comment Spec In Lab Mara [place] MACHINE PRESERVATIVE FILLER CHEMISTRY ORDERABL ES Performing Organization Address [facility] Co de Phone Number [facility] [place] [address] * (ABNORMAL) Potassium (05/20/2023 2:52 AM EDT) [facility] Potassium 3.4(L) 3.5 - 5.0 mmol/L [facility] Comment: Please note: ??Patients with WBC >100,000 may have falsely elevated Potassium levels. ??For accurate Potassium quantification in these patients send serum separator tube (gold top) for subsequent determinations. ??Contact the Clinical Chemistry Laboratory if there are any questions. Blood 05/20/2023 2:52 AM EDT 05/20/2023 3:03 AM EDT Narrative Resulting Agency Comment Spec In Lab Mara [place] MACHINE PRESERVATIVE FILLER CHEMISTRY ORDERABL ES Performing Organization Address [facility] de Phone Number [facility] [place] [address] * XR Chest PA & Lateral (Generic) [...] who have questions please contact the health director of patient care that requested your imaging first. ? Electronically signed by: Chyna Johnson MD, [facility] ??([phone]), at 05/19/2023 2:19 PM Narrative 05/19/2023 2:19 [...] patients who have questions please contactthe health director of patient care that requested your imaging first. Electronically signed by: Chyna Johnson MD, [facility]([phone]), at 05/19/2023 2:19 PM Alirio Hudson MD IMG DX ORDERABLES * (ABNORMAL) Basic Metabolic Panel (non-fasting) (05/19/2023 5:49 AM EDT) Glucose 93 65 - 199 mg/dL [facility] Comment:Diabetes: >=200 mg/d L plus symptoms Blood Urea Nitrogen 45(H) 8 - 18 mg/dL [facility] Creatinine 1.02 0.70 - 1.20 mg/dL [facility] Sodium 138 135 - 145 mmol/L [facility] Potassium 3.9 3.5 - 5.0 mmol/L [facility] Comment: Please note: ??Patients with WBC >100,000 may have falsely elevated Potassium levels. ??For accurate Potassium quantification in these patients send serum separator tube (gold top) for subsequent determinations. ??Contact the Clinical Chemistry Laboratory if there are any questions. Chloride 102 98 - 107 mmol/L [facility] Carbon Dioxide 26 22 - 31 mmol/L [facility] Anion Gap 10 5 - 15 mmol/L [facility] Calcium 9.7 8.5 - 10.5 mg/dL [facility] Est Glomerular Filtration Rate 60 >=60 mL/min/1. 73 m?? [facility] Comment: This patient's estimated GFR [...] Agency Comment Spec In Lab Mara Serrano MACHINE PRESERVATIVE [place] [address] * IR Chest Tube Placement Right (05/18/2023 [...] EDT) Glucose 95 65 - 199 mg/dL [facility] Comment:Diabetes: >=200 mg/d L plus symptoms Blood Urea Nitrogen 71(H) 8 - 18 mg/dL [facility] Comment:result rechecked-JSJ Creatinine 1.64(H) 0.70 - 1.20 mg/dL [facility] Comment:result rechecked-JSJ Sodium 137 135 - 145 mmol/L [facility] Potassium 3.7 3.5 - 5.0 mmol/L [facility] Comment: Please note: ??Patients with WBC >100,000 may have falsely elevated Potassium levels. ??For accurate Potassium quantification in these patients send serum separator tube (gold top) for subsequent determinations. ??Contact the Clinical Chemistry Laboratory if there are any questions. Chloride 100 98 - 107 mmol/L [facility] Carbon Dioxide 24 22 - 31 mmol/L [facility] Anion Gap 13 5 - 15 mmol/L [facility] Calcium 9.7 8.5 - 10.5 mg/dL [facility] Est Glomerular Filtration Rate 34(L) >=60 mL/min/1. 73 m?? [facility] Comment: This patient's estimated GFR [...] Agency Comment Spec In Lab Mara Serrano MACHINE PRESERVATIVE FILLER CHEMISTRY ORDERABL ES [facility] [place] [address] * XR Chest PA & Lateral (Generic) [...] who have questions please contact the health director of patient care that requested your imaging first. ? Electronically signed by: Ghassan Reyes MD, [facility] ??([phone]), at 05/17/2023 11:46 AM Narrative 05/17/2023 11:46 [...] patients who have questions please contactthe health director of patient care that requested your imaging first. Electronically signed by: Ghassan Reyes MD, [facility]([phone]), at 05/17/2023 11:46 AM Alirio Hudson MD IMG DX ORDERABLES * (ABNORMAL) Comprehensive metabolic panel (non-fasting) (05/17/2023 4:35 AM EDT) Glucose 89 65 - 199 mg/dL [facility] Comment:Diabetes: >=200 mg/d L plus symptoms Blood Urea Nitrogen 97(H) 8 - 18 mg/dL [facility] Creatinine 2.97(H) 0.70 - 1.20 mg/dL [facility] Comment:result rechecked-JSJ Sodium 135 135 - 145 mmol/L [facility] Potassium 4.1 3.5 - 5.0 mmol/L [facility] Comment: Please note: ??Patients with WBC >100,000 may have falsely elevated Potassium levels. ??For accurate Potassium quantification in these patients send serum separator tube (gold top) for subsequent determinations. ??Contact the Clinical Chemistry Laboratory if there are any questions. Chloride 97(L) 98 - 107 mmol/L [facility] Carbon Dioxide 22 22 - 31 mmol/L [facility] Anion Gap 16(H) 5 - 15 mmol/L [facility] Calcium 9.6 8.5 - 10.5 mg/dL [facility] Protein, Total 6.5 6.1 - 8.0 g/dL [facility] Albumin 3.7 3.2 - 5.2 g/dL [facility] Aspartate Aminotransferase 58(H) 0 - 30 unit/L [facility] Alanine Aminotransferase 66(H) 0 - 30 unit/L [facility] Alkaline Phosphatase 86 35 - 105 unit/L [facility] Bilirubin, Total 0.6 0.2 - 1.3 mg/dL [facility] Est Glomerular Filtration Rate 17(L) >=60 mL/min/1. 73 m?? [facility] Comment: This patient's estimated GFR [...] CHEMISTRY ORDERABLE S Performing Organization Address City/State/[facility] Co de Phone Number [facility] [place] [address] * Potassium (05/16/2023 11:15 PM EDT) Potassium 3.7 3.5 - 5.0 mmol/L [facility] Comment: Please note: ??Patients with [...] MD CHEMISTRY ORDERABLE S Performing Organization Address City/[facility]/ZIP Co de Phone Number [facility] [place] [address] * Magnesium (05/16/2023 5:22 PM EDT) Magnesium 0.96 0.69 - 1.07 mmol/L [facility] Blood 05/16/2023 5:22 PM EDT 05/16/2023 5:27 PM EDT Narrative Resulting Agency Comment Spec In Lab Alirio Hudson MD CHEMISTRY ORDERABLE S Performing Organization Address [facility] Co de Phone Number [facility] [place] [address] * (ABNORMAL) Basic Metabolic Panel (non-fasting) (05/16/2023 5:22 PM EDT) Glucose 106 65 - 199 mg/dL [facility] Comment:Diabetes: >=200 mg/d L plus symptoms Blood Urea Nitrogen 103(H) 8 - 18 mg/dL [facility] Creatinine 3.91(H) 0.70 - 1.20 mg/dL [facility] Comment:result rechecked-imm Sodium 132(L) 135 - 145 mmol/L [facility] Potassium 3.6 3.5 - 5.0 mmol/L [facility] Comment: Please note: ??Patients with WBC >100,000 may have falsely elevated Potassium levels. ??For accurate Potassium quantification in these patients send serum separator tube (gold top) for subsequent determinations. ??Contact the Clinical Chemistry Laboratory if there are any questions. Chloride 92(L) 98 - 107 mmol/L [facility] Carbon Dioxide 22 22 - 31 mmol/L [facility] Anion Gap 18(H) 5 - 15 mmol/L [facility] Calcium 9.7 8.5 - 10.5 mg/dL [facility] Est Glomerular Filtration Rate 12(L) >=60 mL/min/1. 73 m?? [facility] Comment: This patient's estimated [...] MD CHEMISTRY ORDERABLE S Performing Organization Address [facility] Co de Phone Number [facility] [place] [address] * (ABNORMAL) Potassium (05/16/2023 11:43 AM EDT) Potassium 3.3(L) 3.5 - 5.0 mmol/L [facility] Comment: Please note: ??Patients with [...] MD CHEMISTRY ORDERABLE S Performing Organization Address [facility] Co de Phone Number [facility] [place] [address] * (ABNORMAL) Ferritin (05/16/2023 4:41 AM EDT) Ferritin 1,813(H) 30 - 400 ng/mL [facility] Comment: Pediatric reference ranges not verified at [facility], interpret with caution. Reference ranges for females greater than 50 years of age approach values for men, i.e., 30-400 ng/mL. Blood 05/16/2023 4:41 AM EDT 05/16/2023 4:54 AM EDT Narrative Resulting Agency Comment Spec In Lab Kristopher Ayoub MD CHEMISTRY ORDERABLES Performing Organization Address City/[facility]/ZIP Co de Phone Number [facility] [place] [address] * (ABNORMAL) PTH (05/16/2023 4:41 AM EDT) Parathyroid Hormone 120(H) 15 - 65 pg/mL [facility] Blood 05/16/2023 4:41 AM EDT 05/16/2023 4:54 AM EDT Narrative Resulting Agency Comment Spec In Lab Kristopher Ayoub MD CHEMISTRY ORDERABLES Performing Organization Address [facility] Co de Phone Number [facility] [place] [address] * Vitamin D, 25-Hydroxy (05/16/2023 4:41 AM EDT) Vitamin D Total 25 OH 33 21 - 100 ng/mL [facility] Vit D Interp Sufficient [facility] Blood 05/16/2023 4:41 AM EDT 05/16/2023 4:54 AM EDT Narrative Resulting Agency Comment Spec In Lab Kristopher Ayoub MD CHEMISTRY ORDERABLES Performing Organization Address City/[facility] Co de Phone Number [facility] [place] [address] * (ABNORMAL) Blood Gas Venous ([facility]) (05/16/2023 4:22 AM EDT) pH, Venous 7.41 7.32 - 7.42 [facility] PCO2, Venous 32(L) 41 - 51 mmHg [facility] PO2, Venous 73(H) 25 - 40 mmHg [facility] Bicarbonate, Venous 19.6 mmol/L [facility] Base Excess, Venous -5.1 mmol/L [facility] Hgb Blood Gas 9.7(L) 11.7 - 15.5 g/dL [facility] Oxyhemoglobin, Venous 92.8 % [facility] Carboxyhemoglob in, Venous 0.1 % [facility] Comment: Nonsmokers: 0.5-1.5% COHB Smokers: Variable, but usually less than 10% Toxic: 20-30% COHB Lethal: Greater than 60% COHB Methemoglobin, Venous 0.3 <=1.5 % [facility] Na Whole Blood 130(L) 135 - 145 mmol/L [facility] K Whole Blood 3.7 3.5 - 5.0 mmol/L [facility] Comment: Please note: Patients with WBC >100,000 may have falsely elevated Potassium levels. Contact the Clinical Chemistry Laboratory if there are any questions. ICa Whole Blood 1.15 1.15 - 1.33 mmol/L [facility] Comment: Note: ??Total bilirubin higher than 20 mg/dL may lead to falsely low ionized calcium. CL Whole Blood 95(L) 98 - 107 mmol/L [facility] Gluc Whole Bld 82 65 - 199 mg/dL [facility] Comment:Diabetes: >=200 mg/d L plus symptoms Lactate WB 1.1 0.5 - 2.2 mmol/L [facility] Blood Gas Source Venous [facility] Blood Venous Draw / Unknown 05/16/2023 4:22 AM EDT 05/16/2023 4:31 AM EDT Narrative Resulting Agency Comment Spec In Lab Bonita TOBAR CHEMISTRY ORDERABLES [facility] [place] [address] * (ABNORMAL) Differential, Automated (05/16/2023 4:20 AM EDT) Neutrophil % 84.1 % [facility] Neutrophil Absolute 6.22(H) 1.70 - 6.10 x10(3)/mc L [facility] Lymph % 5.8 % [facility] Lymphocytes Abs 0.4(L) 0.9 - 3.2 x10(3)/mc L [facility] Monocyte % 8.8 % [facility] Monocyte Abs 0.6 0.3 - 0.9 x10(3)/mc L [facility] Eos % 0.4 % [facility] Eosinophils Abs 0.0 0.0 - 0.4 x10(3)/mc L [facility] Basophil % 0.0 % [facility] Baso Absolute 0.0 0.0 - 0.1 x10(3)/mc L [facility] Immature Gran % 0.90 % [facility] Comment: Immature granulocytes(IG's)percentage and absolute count will include metamyelocytes, myelocytes, and promyelocytes. Blood smears from CBCs yielding IG's will be scanned manually for concordance. If this scan disagrees with the automated IG or if promyelocytes are noted, a manual differential will be performed. Immature Gran Absolute 0.07(H) 0.00 - 0.04 x10(3)/mc L [facility] Blood 05/16/2023 4:20 AM EDT 05/16/2023 4:29 AM EDT Narrative Resulting Agency Comment Spec In Lab James Agustin MD HEMATOLOGY ORDER JODIE Performing Organization Address City/State/[facility] Co de Phone Number [facility] [place] [address] * (ABNORMAL) Hemogram (05/16/2023 4:20 AM EDT) White Blood Cell 7.4 4.0 - 9.5 x10(3)/mc L [facility] Red Blood Cell 2.40(L) 4.00 - 5.21 x10(6)/mc L [facility] Hemoglobin 7.8(L) 11.7 - 15.5 g/dL [facility] Hematocrit 22.5(L) 35.7 - 45.8 % [facility] Mean Cell Volume 93.8 82.6 - 94.4 fL [facility] Mean Cell Hemoglobin 32.5(H) 27.1 - 32.0 pg [facility] Mean Cell Hemoglobin Concentration 34.7 31.7 - 35.0 g/dL [facility] LABORATORY Platelet 120(L) 145 - 357 x10(3)/mc L [facility] RDW Standard Deviation 42.9 37.0 - 46.0 fL [facility] RDW coefficient of variation 12.9 11.5 - 14.1 % [facility] Mean Platelet Volume 11.3 7.6 - 12.9 fL [facility] NRBC% auto 0.7 % [facility] NRBC Absolute 0.050(H) 0.000 - 0.000 x10(3)/mc L [facility] Blood 05/16/2023 4:20 AM EDT 05/16/2023 4:29 AM EDT Narrative Resulting Agency Comment Spec In Lab James Agustin MD HEMATOLOGY ORDER JODIE [facility] [place] [address] * (ABNORMAL) Basic Metabolic Panel (non-fasting) (05/16/2023 4:20 AM EDT) Glucose 89 65 - 199 mg/dL [facility] Comment:Diabetes: >=200 mg/d L plus symptoms Blood Urea Nitrogen 108(H) 8 - 18 mg/dL [facility] Creatinine 4.74(H) 0.70 - 1.20 mg/dL [facility] Comment:result rechecked-OLIVA Sodium 132(L) 135 - 145 mmol/L [facility] Potassium 3.9 3.5 - 5.0 mmol/L [facility] Comment: Please note: ??Patients with WBC >100,000 may have falsely elevated Potassium levels. ??For accurate Potassium quantification in these patients send serum separator tube (gold top) for subsequent determinations. ??Contact the Clinical Chemistry Laboratory if there are any questions. Chloride 95(L) 98 - 107 mmol/L [facility] Carbon Dioxide 18(L) 22 - 31 mmol/L [facility] Anion Gap 19(H) 5 - 15 mmol/L [facility] Calcium 9.2 8.5 - 10.5 mg/dL [facility] Est Glomerular Filtration Rate 10(L) >=60 mL/min/1. 73 m?? [facility] Comment: This patient's estimated GFR [...] MD CHEMISTRY ORDERABLE S Performing Organization Address [facility] Co de Phone Number [facility] [place] [address] * (ABNORMAL) Iron and TIBC (05/16/2023 4:20 AM EDT) Iron 31 30 - 150 mcg/dL [facility] TIBC 259 250 - 450 mcg/dL [facility] Iron Saturation 12(L) 20 - 50 % [facility] Blood 05/16/2023 4:20 AM EDT 05/16/2023 4:29 AM EDT Narrative Resulting Agency Comment Spec In Lab Kristopher Ayoub MD CHEMISTRY ORDERABLES Performing Organization Address [facility] Co de Phone Number [facility] [place] [address] * (ABNORMAL) Basic Metabolic Panel (non-fasting) (05/15/2023 12:50 AM EDT) Glucose 101 65 - 199 mg/dL [facility] Comment:Diabetes: >=200 mg/d L plus symptoms Blood Urea Nitrogen 109(H) 8 - 18 mg/dL [facility] Creatinine 5.62(H) 0.70 - 1.20 mg/dL [facility] Comment:result rechecked-KS Sodium 131(L) 135 - 145 mmol/L [facility] Comment:result rechecked-KS Potassium 3.7 3.5 - 5.0 mmol/L [facility] Comment: result rechecked-KS Please note: ??Patients with WBC >100,000 may have falsely elevated Potassium levels. ??For accurate Potassium quantification in these patients send serum separator tube (gold top) for subsequent determinations. ??Contact the Clinical Chemistry Laboratory if there are any questions. Chloride 92(L) 98 - 107 mmol/L [facility] Comment:result rechecked-[place] Carbon Dioxide 18(L) 22 - 31 mmol/L [facility] Comment:result rechecked-[place] Anion Gap 21(H) 5 - 15 mmol/L [facility] Calcium 8.9 8.5 - 10.5 mg/dL [facility] Est Glomerular Filtration Rate 8(L) >=60 mL/min/1. 73 m?? [facility] Comment: This patient's estimated GFR [...] CHEMISTRY ORDERABLE S Performing Organization Address City/State/[facility] Co de Phone Number [facility] [place] [address] * (ABNORMAL) Hemogram (05/15/2023 12:50 AM EDT) White Blood Cell 9.1 4.0 - 9.5 x10(3)/mc L [facility] Red Blood Cell 2.19(L) 4.00 - 5.21 x10(6)/mc L [facility] Hemoglobin 7.2(L) 11.7 - 15.5 g/dL [facility] Hematocrit 20.6(L) 35.7 - 45.8 % [facility] Mean Cell Volume 94.1 82.6 - 94.4 fL [facility] Mean Cell Hemoglobin 32.9(H) 27.1 - 32.0 pg [facility] Mean Cell Hemoglobin Concentration 35.0 31.7 - 35.0 g/dL [facility] Platelet 109(L) 145 - 357 x10(3)/mc L [facility] RDW Standard Deviation 43.6 37.0 - 46.0 fL [facility] RDW coefficient of variation 12.9 11.5 - 14.1 % [facility] Mean Platelet Volume 10.4 7.6 - 12.9 fL [facility] NRBC% auto 2.1 % [facility] NRBC Absolute 0.190(H) 0.000 - 0.000 x10(3)/mc L [facility] Blood 05/15/2023 12:5 0 AM EDT 05/15/2023 12:52 AM EDT Narrative Resulting Agency Comment Spec In Lab Alirio Hudson MD HEMATOLOGY ORDERABL ES Performing Organization Address City/State/[facility] Co de Phone Number [facility] [place] [address] * (ABNORMAL) BLOOD GAS 2 VENOUS (05/15/2023 12:49 AM EDT) pH, Venous 7.33 7.32 - 7.42 [facility] PCO2, Venous 37(L) 41 - 51 mmHg [facility] PO2, Venous 34 25 - 40 mmHg [facility] Bicarbonate, Venous 19.1 mmol/L [facility] Base Excess, Venous -6.8 mmol/L [facility] Hgb Blood Gas 10.8(L) 11.7 - 15.5 g/dL [facility] Oxyhemoglobin, Venous 58.1 % [facility] Carboxyhemoglob in, Venous 0.3 % [facility] Comment: Nonsmokers: 0.5-1.5% COHB Smokers: Variable, but usually less than 10% Toxic: 20-30% COHB Lethal: Greater than 60% COHB Methemoglobin, Venous 0.6 <=1.5 % [facility] Na Whole Blood 136 135 - 145 mmol/L [facility] K Whole Blood 3.7 3.5 - 5.0 mmol/L [facility] Comment: Please note: Patients with WBC >100,000 may have falsely elevated Potassium levels. Contact the Clinical Chemistry Laboratory if there are any questions. ICa Whole Blood 1.12(L) 1.15 - 1.33 mmol/L [facility] Comment: Note: ??Total bilirubin higher than 20 mg/dL may lead to falsely low ionized calcium. CL Whole Blood 95(L) 98 - 107 mmol/L [facility] Gluc Whole Bld 101 65 - 199 mg/dL [facility] Comment:Diabetes: >=200 mg/d L plus symptoms Lactate WB 1.3 0.5 - 2.2 mmol/L [facility] Flow, Mike 1.0 LPM [facility] Blood Gas Source Venous [facility] Blood 05/15/2023 12:4 9 AM EDT 05/15/2023 12:49 AM EDT Alirio Hudson MD POINT OF CARE TEST ORDERABLES Performing Organization Address City/State/[facility] Co de Phone Number [facility] [place] [address] * US Retroperitoneal Complete (05/14/2023 3:53 PM [...] signed by: Hayden Robledo MD, [facility] ([phone]), at 05/14/2023 4:32 PM Thank you for letting us participate in the care of this patient. If you are a health care provider and have any questions regarding this report, please contact the number above. For patients who have questions, please contact the health director of patient care that requested your imaging first. ? Hayden Robledo, Staff Physician Electronically Signed Final Report ?? 05/14/2023 04:39 pm Narrative 05/14/2023 4:39 PM EDT Renal ? (Signed Final 05/14/2023 04:39 pm) PATIENT INFO: ID #: ? [id number] ?: ??[birth year] (67 yrs)(F) Name: ? PURNIMA THACKER ?Visit Date: 05/14/2023 03:44 pm PERFORMED BY: Attending: ?Meena CULP, Hayden Stafford Resident: ? Nell CULP, Anand August Performed By: ? Consuelo Tello RDMS Referred By: ?ALIRIO Powell BECCA Location: ? [place] SERVICE(S) PROVIDED: URETRO - Retroperitoneal Complete - [id number] ? [id number] INDICATIONS: EVANS COMPARISON: CT: Abdomen/Pelvis 05/11/23 RIGHT [...] 05/14/2023 04:39 pm) PATIENT INFO: ID #: [id number] : 55 (67 yrs)(F) Name: PURNIMA THACKER Visit Date: 05/14/2023 03:44 pm PERFORMED BY: Attending: Hayden Robledo MD Resident: Anand Camejo MD Performed By: Consuelo Tello RDMS Referred By: ALIRIO HUDSON Location: [place] SERVICE(S) PROVIDED: URETRO - Retroperitoneal Complete - [id number] INDICATIONS: EVANS COMPARISON: CT: Abdomen/Pelvis 05/11/23 RIGHT [...] signed by: Hayden Robledo MD, [facility] ([phone]), at 05/14/2023 4:32 PM Thank you for letting us participate in the care of this patient. If you are a health care provider and have any questions regarding this report, please contact the number above. For patients who have questions, please contact the health director of patient care that requested your imaging first. Hayden Robledo, Staff Physician Electronically Signed Final Report 05/14/2023 04:39 pm Alirio Hudson MD IMG US GEN ORDERABL ES * CK (05/14/2023 3:17 PM EDT) Pathologist [facility] Creatine Kinase 123 0 - 160 unit/L [facility] Blood 05/14/2023 3:17 PM EDT 05/14/2023 3:31 PM EDT Narrative Resulting Agency Comment Spec In Lab Alirio Hudson MD CHEMISTRY ORDERABLE S Performing Organization Address City/[facility]/ZIP Co de Phone Number [facility] [place] [address] * (ABNORMAL) Uric acid (05/14/2023 3:17 PM EDT) [facility] Uric Acid 14.9(H) 2.5 - 6.5 mg/dL [facility] Blood 05/14/2023 3:17 PM EDT 05/14/2023 3:31 PM EDT Narrative Resulting Agency Comment Spec In Lab Alirio Hudson MD CHEMISTRY ORDERABLE S Performing Organization Address [facility] Co de Phone Number [facility] [place] [address] * (ABNORMAL) Osmolality (05/14/2023 3:17 PM EDT) Pathologist [facility] Osmolality 311(H) 275 - 295 mOsm/kg [facility] Blood 05/14/2023 3:17 PM EDT 05/14/2023 3:31 PM EDT Narrative Resulting Agency Comment Spec In Lab Alirio Hudson MD CHEMISTRY ORDERABLE S Performing Organization Address [facility] Co de Phone Number [facility] [place] [address] * (ABNORMAL) Differential, Automated (05/14/2023 1:10 AM EDT) Neutrophil % 87.2 % [facility] Neutrophil Absolute 9.74(H) 1.70 - 6.10 x10(3)/mc L [facility] Lymph % 3.9 % [facility] Lymphocytes Abs 0.4(L) 0.9 - 3.2 x10(3)/mc L [facility] Monocyte % 7.9 % [facility] Monocyte Abs 0.9 0.3 - 0.9 x10(3)/ L [facility] Eos % 0.0 % [facility] Eosinophils Abs 0.0 0.0 - 0.4 x10(3)/ L [facility] Basophil % 0.1 % [facility] Baso Absolute 0.0 0.0 - 0.1 x10(3)/ L [facility] Immature Gran % 0.90 % [facility] Comment: Immature granulocytes(IG's)percentage and absolute count will include metamyelocytes, myelocytes, and promyelocytes. Blood smears from CBCs yielding IG's will be scanned manually for concordance. If this scan disagrees with the automated IG or if promyelocytes are noted, a manual differential will be performed. Immature Gran Absolute 0.10(H) 0.00 - 0.04 x10(3)/ L [facility] Blood 05/14/2023 1:10 AM EDT 05/14/2023 1:24 AM EDT Narrative Resulting Agency Comment Spec In Lab Bonita TOBAR HEMATOLOGY ORDERABLE S Performing Organization Address City/State/[facility] Co de Phone Number [facility] [place] [address] * (ABNORMAL) Hemogram (05/14/2023 1:10 AM EDT) White Blood Cell 11.2(H) 4.0 - 9.5 x10(3)/mc L [facility] Red Blood Cell 2.19(L) 4.00 - 5.21 x10(6)/ L [facility] Hemoglobin 7.2(L) 11.7 - 15.5 g/dL [facility] Hematocrit 20.3(L) 35.7 - 45.8 % [facility] Mean Cell Volume 92.7 82.6 - 94.4 fL [facility] Mean Cell Hemoglobin 32.9(H) 27.1 - 32.0 pg [facility] Mean Cell Hemoglobin Concentration 35.5(H) 31.7 - 35.0 g/dL [facility] Platelet 112(L) 145 - 357 x10(3)/mc L [facility] RDW Standard Deviation 41.4 37.0 - 46.0 fL [facility] RDW coefficient of variation 12.5 11.5 - 14.1 % [facility] Mean Platelet Volume 10.4 7.6 - 12.9 fL [facility] NRBC% auto 1.5 % [facility] NRBC Absolute 0.170(H) 0.000 - 0.000 x10(3)/mc L [facility] Blood 05/14/2023 1:10 AM EDT 05/14/2023 1:24 AM EDT Narrative Resulting Agency Comment Spec In Lab Bonita TOBAR HEMATOLOGY ORDERABLE S Performing Organization Address City/State/[facility] Co de Phone Number [facility] [place] [address] * (ABNORMAL) Comprehensive metabolic panel (non-fasting) (05/14/2023 1:10 AM EDT) Glucose 120 65 - 199 mg/dL [facility] Comment:Diabetes: >=200 mg/d L plus symptoms Blood Urea Nitrogen 98(H) 8 - 18 mg/dL [facility] Creatinine 4.80(H) 0.70 - 1.20 mg/dL [facility] Comment:result rechecked-ssc Sodium 132(L) 135 - 145 mmol/L [facility] Potassium 4.1 3.5 - 5.0 mmol/L [facility] Comment: Please note: ??Patients with WBC >100,000 may have falsely elevated Potassium levels. ??For accurate Potassium quantification in these patients send serum separator tube (gold top) for subsequent determinations. ??Contact the Clinical Chemistry Laboratory if there are any questions. Chloride 94(L) 98 - 107 mmol/L [facility] Carbon Dioxide 18(L) 22 - 31 mmol/L [facility] Anion Gap 20(H) 5 - 15 mmol/L [facility] Calcium 8.5 8.5 - 10.5 mg/dL [facility] Protein, Total 5.8(L) 6.1 - 8.0 g/dL [facility] Albumin 3.6 3.2 - 5.2 g/dL [facility] Aspartate Aminotransferase 319(H) 0 - 30 unit/L [facility] Alanine Aminotransferase 437(H) 0 - 30 unit/L [facility] Alkaline Phosphatase 86 35 - 105 unit/L [facility] Bilirubin, Total 0.4 0.2 - 1.3 mg/dL [facility] Est Glomerular Filtration Rate 9(L) >=60 mL/min/1. 73 m?? [facility] Comment: This patient's estimated GFR [...] MD CHEMISTRY ORDERABLE S Performing Organization Address City/[facility] [place] [address] * APTT (05/13/2023 10:15 AM EDT) Partial Thromboplastin Time 27 25 - 37 sec [facility] Comment: The PTT is NOT appropriate for heparin monitoring. Use the Anti-Xa level for heparin monitoring (HEP UFH) or LMWH monitoring (HEP LMW). A PTT less than 37 seconds generally indicates adequate hemostasis. Blood 05/13/2023 10:1 5 AM EDT 05/13/2023 10:46 AM EDT Narrative Resulting Agency Comment Spec In Lab Alirio Hudson MD HEMATOLOGY ORDERABL ES Performing Organization Address City/[facility]/ZIP Co de Phone Number [facility] [place] [address] * (ABNORMAL) Prothrombin Time (05/13/2023 10:15 AM EDT) Prothrombin Time 14.6(H) 9.4 - 12.5 sec [facility] International Normalization Ratio 1.3 [facility] Comment: An INR <2.0 indicates [...] Lab Alirio Hudson MD HEMATOLOGY ORDERABL ES [facility] [place] [address] * EKG 12 Lead (05/13/2023 9:22 AM EDT) Ventricular rate 92 BPM MUSE SYSTEM Atrial Rate 92 BPM MUSE SYSTEM P-R Interval 140 ms MUSE SYSTEM QRS Duration 104 ms MUSE SYSTEM Q-T Interval 384 ms MUSE SYSTEM QTC Calculated (Bezet) 474 ms MUSE SYSTEM Calculated P Parker 33 degrees MUSE SYSTEM Calculated R Parker 41 degrees MUSE SYSTEM Calculated T Parker -35 degrees MUSE SYSTEM INTERPRETATION Sinus rhythm with frequent Premature ventricular complexes Septal infarct , age undetermined ST & T wave abnormality, consider lateral ischemia Abnormal ECG When compared with ECG of 12-MAY-2023 10:10, Premature ventricular complexes are now Present I personally reviewed the tracing and edited the fellows interpretation Confirmed by fellow MD Anitha, Carissa ([id number]) on 05/13/2023 3:25:30 PM Confirmed by Maxx Best ([id number]) on 05/13/2023 8:30:56 PM MUSE SYSTEM 05/13/2023 9:22 AM EDT 05/13/2023 8:30 PM EDT Alirio Hudson MD ECG ORDERABLES MUSE SYSTEM * (ABNORMAL) Differential, Automated (05/13/2023 1:15 AM EDT) Neutrophil % 88.1 % [facility] Neutrophil Absolute 7.62(H) 1.70 - 6.10 x10(3)/mc L [facility] Lymph % 3.1 % [facility] Lymphocytes Abs 0.3(L) 0.9 - 3.2 x10(3)/mc L [facility] Monocyte % 7.9 % [facility] Monocyte Abs 0.7 0.3 - 0.9 x10(3)/mc L [facility] Eos % 0.0 % [facility] Eosinophils Abs 0.0 0.0 - 0.4 x10(3)/mc L [facility] Basophil % 0.1 % [facility] Baso Absolute 0.0 0.0 - 0.1 x10(3)/mc L [facility] Immature Gran % 0.80 % [facility] Comment: Immature granulocytes(IG's)percentage and absolute count will include metamyelocytes, myelocytes, and promyelocytes. Blood smears from CBCs yielding IG's will be scanned manually for concordance. If this scan disagrees with the automated IG or if promyelocytes are noted, a manual differential will be performed. Immature Gran Absolute 0.07(H) 0.00 - 0.04 x10(3)/mc L [facility] Blood 05/13/2023 1:15 AM EDT 05/13/2023 1:29 AM EDT Narrative Resulting Agency Comment Spec In Lab Lorri TOBAR HEMATOLOGY ORDERABLE S [facility] [place] [address] * (ABNORMAL) Hemogram (05/13/2023 1:15 AM EDT) White Blood Cell 8.6 4.0 - 9.5 x10(3)/mc L [facility] Red Blood Cell 2.37(L) 4.00 - 5.21 x10(6)/mc L [facility] Hemoglobin 7.8(L) 11.7 - 15.5 g/dL [facility] Hematocrit 22.2(L) 35.7 - 45.8 % [facility] Mean Cell Volume 93.7 82.6 - 94.4 fL [facility] Mean Cell Hemoglobin 32.9(H) 27.1 - 32.0 pg [facility] Mean Cell Hemoglobin Concentration 35.1(H) 31.7 - 35.0 g/dL [facility] Platelet 130(L) 145 - 357 x10(3)/mc L [facility] RDW Standard Deviation 41.7 37.0 - 46.0 fL [facility] RDW coefficient of variation 12.5 11.5 - 14.1 % [facility] Mean Platelet Volume 10.2 7.6 - 12.9 fL [facility] NRBC% auto 0.5 % [facility] NRBC Absolute 0.040(H) 0.000 - 0.000 x10(3)/mc L [facility] Blood 05/13/2023 1:15 AM EDT 05/13/2023 1:29 AM EDT Narrative Resulting Agency Comment Spec In Lab Lorri TOBAR HEMATOLOGY ORDERABLE S [facility] [place] [address] * (ABNORMAL) Hepatic Function Panel (05/13/2023 1:15 AM EDT) Protein, Total 5.5(L) 6.1 - 8.0 g/dL [facility] Albumin 3.0(L) 3.2 - 5.2 g/dL [facility] Aspartate Aminotransferase 792(H) 0 - 30 unit/L [facility] Alanine Aminotransferase 903(H) 0 - 30 unit/L [facility] Alkaline Phosphatase 85 35 - 105 unit/L [facility] Bilirubin, Total 0.5 0.2 - 1.3 mg/dL [facility] Bilirubin, Direct 0.3 0.0 - 0.3 mg/dL [facility] Blood 05/13/2023 1:15 AM EDT 05/13/2023 1:29 AM EDT Narrative Resulting Agency Comment Spec In Lab Alirio Hudson MD CHEMISTRY ORDERABLE S [facility] [place] [address] * (ABNORMAL) Basic Metabolic Panel (non-fasting) (05/13/2023 1:15 AM EDT) Glucose 107 65 - 199 mg/dL [facility] Comment:Diabetes: >=200 mg/d L plus symptoms Blood Urea Nitrogen 82(H) 8 - 18 mg/dL [facility] Creatinine 3.15(H) 0.70 - 1.20 mg/dL [facility] Comment:result rechecked-OG Sodium 132(L) 135 - 145 mmol/L [facility] Potassium 3.8 3.5 - 5.0 mmol/L [facility] Comment: Please note: ??Patients with WBC >100,000 may have falsely elevated Potassium levels. ??For accurate Potassium quantification in these patients send serum separator tube (gold top) for subsequent determinations. ??Contact the Clinical Chemistry Laboratory if there are any questions. Chloride 95(L) 98 - 107 mmol/L [facility] Carbon Dioxide 20(L) 22 - 31 mmol/L [facility] Anion Gap 17(H) 5 - 15 mmol/L [facility] Calcium 8.3(L) 8.5 - 10.5 mg/dL [facility] Est Glomerular Filtration Rate 16(L) >=60 mL/min/1. 73 m?? [facility] Comment: This patient's estimated GFR [...] Lab Alirio Hudson MD CHEMISTRY ORDERABLE S [facility] [place] [address] * (ABNORMAL) BLOOD GAS 2 ARTERIAL (05/12/2023 3:57 PM EDT) pH, Arterial 7.39 7.35 - 7.45 [facility] PCO2, Arterial 33(L) 35 - 45 mmHg [facility] PO2, Arterial 101 85 - 104 mmHg [facility] Bicarbonate, Arterial 19.5(L) 20.0 - 26.0 mmol/L [facility] Base Excess, Arterial -5.5(L) -3.0 - 3.0 mmol/L [facility] [facility] Hgb Blood Gas 9.8(L) 11.7 - 15.5 g/dL [facility] Oxyhemoglobin, Arterial 95.2 94.0 - 97.0 % [facility] Carboxyhemoglob in, Arterial 0.2 % [facility] Comment: Nonsmokers: 0.5-1.5% COHB Smokers: Variable, but usually less than 10% Toxic: 20-30% COHB Lethal: Greater than 60% COHB Methemoglobin, Arterial 0.8 <=1.5 % [facility] Na Whole Blood 129(L) 135 - 145 mmol/L [facility] K Whole Blood 3.8 3.5 - 5.0 mmol/L [facility] Comment: Please note: Patients with WBC >100,000 may have falsely elevated Potassium levels. Contact the Clinical Chemistry Laboratory if there are any questions. ICa Whole Blood 1.05(L) 1.15 - 1.33 mmol/L [facility] Comment: Note: ??Total bilirubin higher than 20 mg/dL may lead to falsely low ionized calcium. CL Whole Blood 96(L) 98 - 107 mmol/L [facility] Gluc Whole Bld 178 65 - 199 mg/dL [facility] Comment:Diabetes: >=200 mg/d L plus symptoms. Lactate WB 1.5 0.5 - 2.2 mmol/L [facility] FIO2 Art 40 % [facility] PF Ratio Art 252 [facility] Blood 05/12/2023 3:57 PM EDT 05/12/2023 3:57 PM EDT Alirio Hudson MD POINT OF CARE TEST ORDERABLES Performing Organization Address [facility] Co de Phone Number [facility] [place] [address] * (ABNORMAL) Coox2 (05/12/2023 2:25 PM EDT) pO2, Coox 37 mmHg [facility] Hgb Blood Gas 9.5(L) 11.7 - 15.5 g/dL [facility] Oxyhemoglobin, Coox 59.9 % [facility] Carboxyhemoglo bin, Coox 0.3 % [facility] Comment: Nonsmokers: 0.5-1.5% COHB Smokers: Variable, but usually less than 10% Toxic: 20-30% COHB Lethal: Greater than 60% COHB Methemoglobin, Coox 0.7 <=1.5 % [facility] Source Coox Mixed Venous [facility] Blood 05/12/2023 2:25 PM EDT 05/12/2023 2:25 PM EDT Alirio Hudson MD POINT OF CARE TEST ORDERABLES Performing Organization Address City/[facility] Co de Phone Number [facility] [place] [address] * (ABNORMAL) BLOOD GAS 2 ARTERIAL (05/12/2023 2:23 PM EDT) pH, Arterial 7.37 7.35 - 7.45 [facility] PCO2, Arterial 36 35 - 45 mmHg [facility] PO2, Arterial 102 85 - 104 mmHg [facility] Bicarbonate, Arterial 20.4 20.0 - 26.0 mmol/L [facility] Base Excess, Arterial -4.8(L) -3.0 - 3.0 mmol/L [facility] Hgb Blood Gas 12.7 11.7 - 15.5 g/dL [facility] Oxyhemoglobin, Arterial 95.4 94.0 - 97.0 % [facility] Carboxyhemoglob in, Arterial 0.3 % [facility] Comment: Nonsmokers: 0.5-1.5% COHB Smokers: Variable, but usually less than 10% Toxic: 20-30% COHB Lethal: Greater than 60% COHB Methemoglobin, Arterial 0.7 <=1.5 % [facility] Na Whole Blood 129(L) 135 - 145 mmol/L [facility] K Whole Blood 3.7 3.5 - 5.0 mmol/L [facility] Comment: Please note: Patients with WBC >100,000 may have falsely elevated Potassium levels. Contact the Clinical Chemistry Laboratory if there are any questions. ICa Whole Blood 1.05(L) 1.15 - 1.33 mmol/L [facility] Comment: Note: ??Total bilirubin higher than 20 mg/dL may lead to falsely low ionized calcium. CL Whole Blood 95(L) 98 - 107 mmol/L [facility] Gluc Whole Bld 168 65 - 199 mg/dL [facility] Comment:Diabetes: >=200 mg/d L plus symptoms. Lactate WB 1.8 0.5 - 2.2 mmol/L [facility] FIO2 Art 40 % [facility] PF Ratio Art 255 [facility] Blood 05/12/2023 2:23 PM EDT 05/12/2023 2:23 PM EDT Alirio Hudson MD POINT OF CARE TEST ORDERABLES Performing Organization Address City/State/[facility] Co de Phone Number [facility] [place] [address] * (ABNORMAL) Troponin (05/12/2023 2:05 PM EDT) Troponin-T, High Sensitivity 1,022(H) <=14 ng/L [facility] Comment: This patient's troponin T [...] [facility] Test Catalog Reference: Fourth [place] Definition of Myocardial Infarction. Journal of the [place] [employer] 2018;72:6646-1085 Blood 05/12/2023 2:05 PM EDT 05/12/2023 2:14 PM EDT Narrative Resulting Agency Comment Spec In Lab Alirio Hudson MD CHEMISTRY ORDERABLE S Performing Organization Address [facility] Co de Phone Number [facility] [place] [address] * (ABNORMAL) Hemoglobin (05/12/2023 2:05 PM EDT) Hemoglobin 8.5(L) 11.7 - 15.5 g/dL [facility] Blood 05/12/2023 2:05 PM EDT 05/12/2023 2:14 PM EDT Narrative Resulting Agency Comment Spec In Lab Alirio Hudson MD HEMATOLOGY ORDERABL ES Performing Organization Address [facility] Co de Phone Number [facility] [place] [address] * Potassium (05/12/2023 2:05 PM EDT) Potassium 3.9 3.5 - 5.0 mmol/L [facility] Comment: Please note: ??Patients with [...] CHEMISTRY ORDERABLE S Performing Organization Address City/State/[facility] Co de Phone Number [facility] [place] [address] * (ABNORMAL) BLOOD GAS 2 ARTERIAL (05/12/2023 11:05 AM EDT) pH, Arterial 7.34(L) 7.35 - 7.45 [facility] PCO2, Arterial 42 35 - 45 mmHg [facility] PO2, Arterial 73(L) 85 - 104 mmHg [facility] Bicarbonate, Arterial 22.1 20.0 - 26.0 mmol/L [facility] Base Excess, Arterial -3.6(L) -3.0 - 3.0 mmol/L [facility] Hgb Blood Gas 9.3(L) 11.7 - 15.5 g/dL [facility] Oxyhemoglobin, Arterial 89.3(L) 94.0 - 97.0 % [facility] Carboxyhemoglob in, Arterial 0.2 % [facility] Comment: Nonsmokers: 0.5-1.5% COHB Smokers: Variable, but usually less than 10% Toxic: 20-30% COHB Lethal: Greater than 60% COHB Methemoglobin, Arterial 0.9 <=1.5 % [facility] Na Whole Blood 131(L) 135 - 145 mmol/L [facility] K Whole Blood 3.8 3.5 - 5.0 mmol/L [facility] Comment: Please note: Patients with WBC >100,000 may have falsely elevated Potassium levels. Contact the Clinical Chemistry Laboratory if there are any questions. ICa Whole Blood 1.04(L) 1.15 - 1.33 mmol/L [facility] Comment: Note: ??Total bilirubin higher than 20 mg/dL may lead to falsely low ionized calcium. CL Whole Blood 96(L) 98 - 107 mmol/L [facility] Gluc Whole Bld 152 65 - 199 mg/dL [facility] Comment:Diabetes: >=200 mg/d L plus symptoms. Lactate WB 2.8(H) 0.5 - 2.2 mmol/L [facility] FIO2 Art 40 % [facility] PF Ratio Art 182 [facility] Blood 05/12/2023 11:0 5 AM EDT 05/12/2023 11:05 AM EDT Alirio Hudson MD POINT OF CARE TEST ORDERABLES [facility] [address] [place] [address] * (ABNORMAL) BLOOD GAS 2 ARTERIAL (05/12/2023 10:14 AM EDT) pH, Arterial 7.18(Criti gabrielle) 7.35 - 7.45 [facility] Comment:Noted by musical instrument mechanic. PCO2, Arterial 45 35 - 45 mmHg [facility] PO2, Arterial 186(H) 85 - 104 mmHg [facility] Bicarbonate, Arterial 16.2(L) 20.0 - 26.0 mmol/L [facility] Base Excess, Arterial -12.2(L) -3.0 - 3.0 mmol/L [facility] Hgb Blood Gas 10.0(L) 11.7 - 15.5 g/dL [facility] Oxyhemoglobin, Arterial 97.0 94.0 - 97.0 % [facility] Carboxyhemoglob in, Arterial 0.2 % [facility] Comment: Nonsmokers: 0.5-1.5% COHB Smokers: Variable, but usually less than 10% Toxic: 20-30% COHB Lethal: Greater than 60% COHB Methemoglobin, Arterial 0.9 <=1.5 % [facility] Na Whole Blood 129(L) 135 - 145 mmol/L [facility] K Whole Blood 3.6 3.5 - 5.0 mmol/L [facility] Comment: Please note: Patients with WBC >100,000 may have falsely elevated Potassium levels. Contact the Clinical Chemistry Laboratory if there are any questions. ICa Whole Blood 1.10(L) 1.15 - 1.33 mmol/L [facility] Comment: Note: ??Total bilirubin higher than 20 mg/dL may lead to falsely low ionized calcium. CL Whole Blood 97(L) 98 - 107 mmol/L [facility] Gluc Whole Bld 161 65 - 199 mg/dL [facility] Comment:Diabetes: >=200 mg/d L plus symptoms. Lactate WB 3.3(H) 0.5 - 2.2 mmol/L [facility] FIO2 Art 100 % [facility] PF Ratio Art 186 [facility] Blood 05/12/2023 10:1 4 AM EDT 05/12/2023 10:14 AM EDT Alirio Hudson MD POINT OF CARE TEST ORDERABLES Performing Organization Address City/[facility] Co de Phone Number [facility] [place] [address] * EKG 12 Lead (05/12/2023 10:10 AM EDT) Ventricular rate 116 BPM MUSE SYSTEM Atrial Rate 116 BPM MUSE SYSTEM P-R Interval 158 ms MUSE SYSTEM QRS Duration 114 ms MUSE SYSTEM Q-T Interval 348 ms MUSE SYSTEM QTC Calculated (Bezet) 483 ms MUSE SYSTEM Calculated P Parker 37 degrees MUSE SYSTEM Calculated R Parker 31 degrees MUSE SYSTEM Calculated T Parker -138 degrees MUSE SYSTEM INTERPRETATION Sinus tachycardia [...] interpretation Confirmed by fellow MD Anuja, Jim ([id number]) on 05/12/2023 1:04:20 PM Confirmed by MD Villareal Danette ([id number]) on 05/12/2023 9:28:34 PM MUSE SYSTEM 05/12/2023 [...] who have questions please contact the health director of patient care that requested your imaging first. ? Electronically signed by: Chyna Johnson MD, [facility] ??([phone]), at 05/12/2023 10:08 AM Narrative 05/12/2023 10:08 AM EDT EXAMINATION: XR CHEST ONE VIEW CLINICAL HISTORY: Post TAVR TECHNIQUE: 1 view of the chest COMPARISON: Chest radiograph from earlier today FINDINGS: Interval placement of endotracheal tube with tip terminating 2 cm above the shira. Interval placement of enteric tube projecting along the expected course of the esophagus and outside the dyiro-qb-cmtd. Interval retraction of right IJ approach pulmonary [...] expected course ofthe esophagus and outside the xkffw-yi-udzh. Interval retraction of right IJ approach pulmonary [...] patients who have questions please contactthe health director of patient care that requested your imaging first. Electronically signed by: Chyna Johnson MD, [facility]([phone]), at 05/12/2023 10:08 AM Alirio Hudson MD IMG DX ORDERABLES * ECHO LMTD W/O CONTRAST W LMTD SPEC DOPP COLOR DOPP (05/12/2023 9:23 AM EDT) EF 20 HEART[facility] SYSTEM Anatomical Region Laterality Modality Cardiac Other 05/12/2023 7:33 AM EDT Narrative 05/12/2023 10:18 AM EDT ? Echocardiogram Report Name: PURNIMA THACKER ?Study Date: 05/12/2023 07:33 AMBP: 96/63 mmHg ? [place] [facility] [facility] [place] : 1955 ? Height: 154 cm ? Account: [id number] Age: 67 yrs ? Weight: 75 kg Gender: Female ?BSA: 1.7 m2 Ordering Physician: RADHA HOLLINS Referring Physician: RADHA HOLLINS Performed By: Dilma Bee RDCS Reason For Study: Guidance for TAVR procedure Exam Location: [facility]. Interpretation Summary PRE TAVR: There is [...] mL/m2. POST TAVR: Normal function of the dospi-qd-laytx prosthesis. See below for hemodynamic parameters. Slight improvement in left and right ventricular systolic function. LVEF now 20-25%. No pericardial effusion. See report for additional findings. Procedure Limited - 72581. Doppler - 34539. Color Doppler - 62311. Left Ventricle Left ventricle is of normal [...] Date: 307:33 AMBP: 96/63 mmHg Patient Location: [address] : 1955 Height: 154 cm Account: [id number] Age: 67 yrs Weight: 75 kg Gender: Female BSA: 1.7 m2 Ordering Physician: RADHA HOLLINS Referring Physician: RADHA HOLLINS Performed By: Dilma Bee RDCS Reason For Study: Guidance for TAVR procedure Exam Location: [facility]. Interpretation Summary PRE TAVR: There is [...] 28mL/m2. POST TAVR: Normal function of the hpkvv-dr-krjkx prosthesis. See belowfor hemodynamic parameters. Slight improvement in left and right ventricularsystolic function. LVEF now 20-25%. No pericardial effusion. See report for additional findings. Procedure Limited - 93307. Doppler - 93168. Color Doppler - 55767. Left Ventricle Left ventricle is of normal [...] Other Narrative 05/12/2023 2:37 PM EDT ?[facility] ? Cardiac Catheterization/Intervention Report ? Patient Name: Kirstie, Purnima M. ? Procedure Date: 05/12/2023 ? A #: [id number] ? Primary Physician: Antelmo Sharma ? Case #: [id number] ? File Name: [id number] ? Catheterization Order Number: [id number] ? [facility] ? Final Report [place], [place] ? Patient Name: ? Purnima M. Kirstie ? ID#: ?[id number] ? : ?1955 ? Procedure Date: ? May 12, 2023 ? Case #: ? [id number] ? Room: ? 6 ? Case Physicians: ?Antelmo Sharma M.D. ?Start: ?08:03 ?Alirio Hudson M.D. ?Admission: ??05/08/2023 ?Lynda Mcgowan M.D. ? Discharge: ??05/22/2023 ?Fellow: ? Rebekah Tejeda M.D. ? Referring Physician: ??Mario Alberto Chin M.D. ? Procedures: ?* Coronary Angiography ?* Left Heart Catheterization ?* Coronary Stent Insertion ?* Transcatheter Aortic Valve Replacement ?* Vascular Closure Device Deployment ?* Temporary Pacemaker Insertion In Loan Review Manager ?* Endotracheal Intubation By Non-Cath Physician [...] was designated as ASA Class IV. The [facility] clinical ?frailty scale is 4: Vulnerable. [...] ??A premounted 4.00 x 30 mm Nils Hyde (MINNA) was ? deployed with a maximum [...] calculated STS risk score was 30.1%. A muxsx-lj-bjeng ?procedure was performed on the pre-existing bioprosthetic stented ?prosthesis. The priority of the dshho-wm-ilxra procedure was Elective. ?The procedure was performed [...] Lai 3 Ultra RESILIA 23 mm THV (s/c=[id number]) transcatheter ?valve was inserted using standard technique. 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 ?Recommended anti-platelet/anti-thrombotic regimen: ?Continue aspirin 81 mg daily for indefinitely. ?These recommendations are made at the time of the intervention. Patient ?and provider preferences or a changing clinical situation may require ?modification of this regimen. Consult [facility] Interventional Cardiology for ?questions. ? [...] regimen. ? Comments: ?Successful right transfemoral TAVR Ipgtb-ws-Gtvkj with a 23 mm Lai 3 ?THV. 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 Dr. Alirio Hudson M.D. ?performed the left heart catheterization, access site angiography, ?temporary pacemaker in odd job laborer, vascular closure device, transthoracic ?echo , TAVR and CPR during cath. Dr. Lynda Mcgowan M.D. performed the ABG, ?anesthesia and intubation-non cath physician. ? Antelmo Sharma M.D. ? Electronically Signed by: Antelmo Sharma M.D. ? Report Finalized: 05/12/2023 ??14:31 ? Report Last Ammended: 07/01/2023 ??11:30 ? Procedure Note Antelmo Sharma MD - 07/01/2023 [facility] Cardiac Catheterization/Intervention Report Patient Name: Purnima Thacker Procedure Date: 05/12/2023 A #: [id number] Primary Physician: Antelmo Sharma Case #: [id number] File Name: [id number] Catheterization Order Number: [id number] [facility] FinalReport [place], [place] Patient Name: Purnima Thacker ID#:[id number] :1955 Procedure Date: May 12, 2023 Case #: [id number] Room: 6 Case Physicians: Antelmo Sharma M.D. Start: 08:03 Alirio Hudson M.D. Admission:05/08/2023 Lynda Mcgowan M.D. Discharge:05/22/2023 Fellow: Rebekah Tejeda M.D. Referring Physician: Mario Alberto Chin M.D. Procedures: * Coronary Angiography * Left Heart Catheterization * Coronary Stent Insertion * Transcatheter Aortic Valve Replacement * Vascular Closure Device Deployment * Temporary Pacemaker Insertion In Loan Review Manager * Endotracheal Intubation By Non-Cath Physician [...] guide. A premounted 4.00 x 30 mm Talcott Hyde (MINNA) was deployed with a maximum inflation [...] calculated STS risk score was 30.1%. A upddl-xt-sjkdf procedure was performed on the pre-existing bioprosthetic stented prosthesis. The priority of the entcl-ic-yydvv procedure wasElective. The procedure was performed under Moderate sedation performed byLynda Mcgowan M.D. (see anesthesia report for additional details). Alirio Hudson M.D. participated in the case (see Cardiac Surgery reportfor additional details). The TAVR sheath was a 14 Fr Corona eSheath Introducer and theaccess site was femoral. Rapid ventricular pacing was performed. An Corona Lai 3 Ultra RESILIA 23 mm THV (s/z=[id number])transcatheter valve was inserted using standard technique. The [...] prior to nor was it given inthe odd job laborer. Recommended anti-platelet/anti-thrombotic regimen: Continue aspirin 81 mg daily for indefinitely. These recommendations are made at the time of the intervention.Patient and provider preferences or a changing clinical situation mayrequire modification of this regimen. Consult [facility] Interventional Cardiologyfor questions. Conclusions: * [...] this regimen. Comments: Successful right transfemoral TAVR Kqzri-el-Lgrnr with a 23 mmSapien 3 THV. We [...] insertion-coronary, access site angiography, temporary pacemaker in odd job laborer, intubation-non cath physician,vascular closure device, transthoracic echo and TAVR. Dr. Alirio Hudson M.D. performed the left heart catheterization, access site angiography, temporary pacemaker in odd job laborer, vascular closure device,transthoracic echo , TAVR [...] pH, POC 7.20(Crit ical) 7.35 - 7.45 [facility] Comment:Critical value OK, C C Lab. pCO2, POC 42 35 - 45 mmHg [facility] pO2, POC 260(H) 85 - 104 mmHg [facility] Base Excess, POC -11.0(L) -3.0 - 3.0 mmol/L [facility] Bicarbonate, POC 16.7(L) 20.0 - 26.0 mmol/L [facility] Sodium, POC 129(L) 135 - 145 mmol/L [facility] POC Potassium 3.8 3.5 - 5.0 mmol/L [facility] Ionized Calcium, POC 1.12(L) 1.15 - 1.33 mmol/L [facility] POC Hematocrit 23.0(L) 34.0 - 45.0 % [facility] POC Calc Hgb 7.8(L) 11.2 - 15.7 g/dL [facility] Comment:The calculation of h emoglobin from hematocrit assumes a normal MCHC. POC Bgas Loc CC Lab [facility] Blood 05/12/2023 8:50 AM EDT 05/13/2023 12:00 PM EDT Alirio Hudson MD CHEMISTRY ORDERABLE S [facility] [place] [address] * (ABNORMAL) Point of Care Blood Gas Historical (05/12/2023 8:10 AM EDT) pH, POC 7.27(Crit ical) 7.35 - 7.45 [facility] Comment:Critical value OK, C C Lab. pCO2, POC 37 35 - 45 mmHg [facility] pO2, POC 29(Critic al) 85 - 104 mmHg [facility] Comment:Critical value OK, C C Lab. Base Excess, POC -10.0(L) -3.0 - 3.0 mmol/L [facility] Bicarbonate, POC 16.7(L) 20.0 - 26.0 mmol/L [facility] Sodium, POC 123(L) 135 - 145 mmol/L [facility] POC Potassium 4.0 3.5 - 5.0 mmol/L [facility] Ionized Calcium, POC 1.12(L) 1.15 - 1.33 mmol/L [facility] POC Hematocrit 27.0(L) 34.0 - 45.0 % [facility] POC Calc Hgb 9.2(L) 11.2 - 15.7 g/dL [facility] Comment:The calculation of h emoglobin from hematocrit assumes a normal MCHC. POC Bgas Loc CC Lab [facility] Blood 05/12/2023 8:10 AM EDT 05/13/2023 12:00 PM EDT Alirio Hudson MD CHEMISTRY ORDERABLE S [facility] [place] [address] * (ABNORMAL) Lactate, whole blood, send to lab ([facility] (05/12/2023 7:00 AM EDT) Lactate WB 2.4(H) 0.5 - 2.2 mmol/L [facility] Blood 05/12/2023 7:00 AM EDT 05/12/2023 7:09 AM EDT Narrative Resulting Agency Comment Spec In Lab Radha Hollins MD CHEMISTRY ORDERABL ES [facility] [place] [address] * (ABNORMAL) Comprehensive metabolic panel (non-fasting) (05/12/2023 6:00 AM EDT) Glucose 167 65 - 199 mg/dL [facility] Comment:Diabetes: >=200 mg/d L plus symptoms Blood Urea Nitrogen 67(H) 8 - 18 mg/dL [facility] Creatinine 2.01(H) 0.70 - 1.20 mg/dL [facility] Sodium 131(L) 135 - 145 mmol/L [facility] Potassium 4.3 3.5 - 5.0 mmol/L [facility] Comment: Please note: ??Patients with WBC >100,000 may have falsely elevated Potassium levels. ??For accurate Potassium quantification in these patients send serum separator tube (gold top) for subsequent determinations. ??Contact the Clinical Chemistry Laboratory if there are any questions. Chloride 97(L) 98 - 107 mmol/L [facility] Carbon Dioxide 14(L) 22 - 31 mmol/L [facility] Anion Gap 20(H) 5 - 15 mmol/L [facility] Calcium 8.6 8.5 - 10.5 mg/dL [facility] Protein, Total 6.3 6.1 - 8.0 g/dL [facility] Albumin 3.5 3.2 - 5.2 g/dL [facility] Aspartate Aminotransferase 1,435(H) 0 - 30 unit/L [facility] Alanine Aminotransferase 1,174(H) 0 - 30 unit/L [facility] Alkaline Phosphatase 100 35 - 105 unit/L [facility] Bilirubin, Total 0.9 0.2 - 1.3 mg/dL [facility] Est Glomerular Filtration Rate 27(L) [...] MD CHEMISTRY ORDERABL ES Performing Organization Address City/[facility] Co de Phone Number [facility] [place] [address] * (ABNORMAL) Coox2 (05/12/2023 5:08 AM EDT) pO2, Coox 24 mmHg [facility] Hgb Blood Gas 10.4(L) 11.7 - 15.5 g/dL [facility] Oxyhemoglobin, Coox 30.7 % [facility] Carboxyhemoglo bin, Coox 0.3 % [facility] Comment: Nonsmokers: 0.5-1.5% COHB Smokers: Variable, but usually less than 10% Toxic: 20-30% COHB Lethal: Greater than 60% COHB Methemoglobin, Coox 0.8 <=1.5 % [facility] Source Coox Mixed Venous [facility] Blood 05/12/2023 5:08 AM EDT 05/12/2023 5:08 AM EDT Radha Hollins MD POINT OF CARE TEST ORDERABLES Performing Organization Address City/[facility] Co de Phone Number [facility] [place] [address] * (ABNORMAL) Coox2 (05/12/2023 3:21 AM EDT) pO2, Coox 25 mmHg [facility] Hgb Blood Gas 10.8(L) 11.7 - 15.5 g/dL [facility] Oxyhemoglobin, Coox 32.7 % [facility] Carboxyhemoglo bin, Coox 0.3 % [facility] Comment: Nonsmokers: 0.5-1.5% COHB Smokers: Variable, but usually less than 10% Toxic: 20-30% COHB Lethal: Greater than 60% COHB Methemoglobin, Coox 0.7 <=1.5 % [facility] Source Coox Mixed Venous [facility] Blood 05/12/2023 3:21 AM EDT 05/12/2023 3:21 AM EDT Radha Hollins MD POINT OF CARE TEST ORDERABLES [facility] [place] [address] * (ABNORMAL) BLOOD GAS 2 ARTERIAL (05/12/2023 3:18 AM EDT) pH, Arterial 7.34(L) 7.35 - 7.45 [facility] PCO2, Arterial 30(L) 35 - 45 mmHg [facility] PO2, Arterial 72(L) 85 - 104 mmHg [facility] Bicarbonate, Arterial 16.0(L) 20.0 - 26.0 mmol/L [facility] Base Excess, Arterial -9.8(L) -3.0 - 3.0 mmol/L [facility] Hgb Blood Gas 11.0(L) 11.7 - 15.5 g/dL [facility] Oxyhemoglobin, Arterial 89.8(L) 94.0 - 97.0 % [facility] Carboxyhemoglob in, Arterial 0.3 % [facility] Comment: Nonsmokers: 0.5-1.5% COHB Smokers: Variable, but usually less than 10% Toxic: 20-30% COHB Lethal: Greater than 60% COHB Methemoglobin, Arterial 0.7 <=1.5 % [facility] Na Whole Blood 131(L) 135 - 145 mmol/L [facility] K Whole Blood 4.2 3.5 - 5.0 mmol/L [facility] Comment: Please note: Patients with WBC >100,000 may have falsely elevated Potassium levels. Contact the Clinical Chemistry Laboratory if there are any questions. ICa Whole Blood 1.12(L) 1.15 - 1.33 mmol/L [facility] Comment: Note: ??Total bilirubin higher than 20 mg/dL may lead to falsely low ionized calcium. CL Whole Blood 100 98 - 107 mmol/L [facility] Gluc Whole Bld 160 65 - 199 mg/dL [facility] Comment:Diabetes: >=200 mg/d L plus symptoms. Lactate WB 2.7(H) 0.5 - 2.2 mmol/L [facility] Flow Art 5.0 LPM [facility] Blood 05/12/2023 3:18 AM EDT 05/12/2023 3:18 AM EDT Radha Hollins MD POINT OF CARE TEST ORDERABLES Performing Organization Address [facility] Co de Phone Number [facility] [place] [address] * (ABNORMAL) Coox2 (05/12/2023 1:14 AM EDT) pO2, Coox 28 mmHg [facility] Hgb Blood Gas 10.9(L) 11.7 - 15.5 g/dL [facility] Oxyhemoglobin, Coox 37.3 % [facility] Carboxyhemoglo bin, Coox 0.3 % [facility] Comment: Nonsmokers: 0.5-1.5% COHB Smokers: Variable, but usually less than 10% Toxic: 20-30% COHB Lethal: Greater than 60% COHB Methemoglobin, Coox 0.5 <=1.5 % [facility] Source Coox Mixed Venous [facility] Blood 05/12/2023 1:14 AM EDT 05/12/2023 1:14 AM EDT Radha Hollins MD POINT OF CARE TEST ORDERABLES Performing Organization Address [facility] Co de Phone Number [facility] [place] [address] * (ABNORMAL) BLOOD GAS 2 ARTERIAL (05/12/2023 1:06 AM EDT) pH, Arterial 7.34(L) 7.35 - 7.45 [facility] PCO2, Arterial 30(L) 35 - 45 mmHg [facility] PO2, Arterial 81(L) 85 - 104 mmHg [facility] Bicarbonate, Arterial 15.7(L) 20.0 - 26.0 mmol/L [facility] Base Excess, Arterial -10.1(L) -3.0 - 3.0 mmol/L [facility] Hgb Blood Gas 11.0(L) 11.7 - 15.5 g/dL [facility] Oxyhemoglobin, Arterial 92.3(L) 94.0 - 97.0 % [facility] Carboxyhemoglob in, Arterial 0.2 % [facility] Comment: Nonsmokers: 0.5-1.5% COHB Smokers: Variable, but usually less than 10% Toxic: 20-30% COHB Lethal: Greater than 60% COHB Methemoglobin, Arterial 0.6 <=1.5 % [facility] Na Whole Blood 131(L) 135 - 145 mmol/L [facility] K Whole Blood 4.2 3.5 - 5.0 mmol/L [facility] Comment: Please note: Patients with WBC >100,000 may have falsely elevated Potassium levels. Contact the Clinical Chemistry Laboratory if there are any questions. ICa Whole Blood 1.13(L) 1.15 - 1.33 mmol/L [facility] Comment: Note: ??Total bilirubin higher than 20 mg/dL may lead to falsely low ionized calcium. CL Whole Blood 99 98 - 107 mmol/L [facility] Gluc Whole Bld 132 65 - 199 mg/dL [facility] Comment:Diabetes: >=200 mg/d L plus symptoms. Lactate WB 2.7(H) 0.5 - 2.2 mmol/L [facility] Flow Art 5.0 LPM [facility] Blood 05/12/2023 1:06 AM EDT 05/12/2023 1:06 AM EDT Radha Hollins MD POINT [place] [address] * (ABNORMAL) Differential, Automated (05/12/2023 1:05 AM EDT) Neutrophil % 83.3 % [facility] Neutrophil Absolute 7.49(H) 1.70 - 6.10 x10(3)/mc L [facility] Lymph % 7.1 % [facility] Lymphocytes Abs 0.6(L) 0.9 - 3.2 x10(3)/mc L [facility] Monocyte % 8.9 % [facility] Monocyte Abs 0.8 0.3 - 0.9 x10(3)/mc L [facility] Eos % 0.0 % [facility] Eosinophils Abs 0.0 0.0 - 0.4 x10(3)/mc L [facility] Basophil % 0.1 % [facility] Baso Absolute 0.0 0.0 - 0.1 x10(3)/mc L [facility] Immature Gran % 0.60 % [facility] Comment: Immature granulocytes(IG's)percentage and absolute count will include metamyelocytes, myelocytes, and promyelocytes. Blood smears from CBCs yielding IG's will be scanned manually for concordance. If this scan disagrees with the automated IG or if promyelocytes are noted, a manual differential will be performed. Immature Gran Absolute 0.05(H) 0.00 - 0.04 x10(3)/mc L [facility] Blood 05/12/2023 1:05 AM EDT 05/12/2023 1:15 AM EDT Narrative Resulting Agency Comment Spec In Lab Gianni Fletcher MD [place] [address] * (ABNORMAL) Hemogram (05/12/2023 1:05 AM EDT) White Blood Cell 9.0 4.0 - 9.5 x10(3)/mc L [facility] Red Blood Cell 3.01(L) 4.00 - 5.21 x10(6)/mc L [facility] Hemoglobin 9.8(L) 11.7 - 15.5 g/dL [facility] Hematocrit 28.7(L) 35.7 - 45.8 % [facility] Mean Cell Volume 95.3(H) 82.6 - 94.4 fL [facility] Mean Cell Hemoglobin 32.6(H) 27.1 - 32.0 pg [facility] Mean Cell Hemoglobin Concentration 34.1 31.7 - 35.0 g/dL [facility] Platelet 186 145 - 357 x10(3)/mc L [facility] RDW Standard Deviation 43.7 37.0 - 46.0 fL [facility] RDW coefficient of variation 12.7 11.5 - 14.1 % [facility] Mean Platelet Volume 10.3 7.6 - 12.9 fL [facility] NRBC% auto 0.0 % [facility] NRBC Absolute 0.000 0.000 - 0.000 x10(3)/ L [facility] Blood 05/12/2023 1:05 AM EDT 05/12/2023 1:15 AM EDT Narrative Resulting Agency Comment Spec In Lab Gianni Flethcer MD HEMATOLOGY ORDERABLE S [facility] [place] [address] * (ABNORMAL) Comprehensive metabolic panel (non-fasting) (05/12/2023 1:05 AM EDT) Glucose 141 65 - 199 mg/dL [facility] Comment:Diabetes: >=200 mg/d L plus symptoms Blood Urea Nitrogen 63(H) 8 - 18 mg/dL [facility] Creatinine 1.86(H) 0.70 - 1.20 mg/dL [facility] Sodium 131(L) 135 - 145 mmol/L [facility] Potassium 4.4 3.5 - 5.0 mmol/L [facility] Comment: Please note: ??Patients with WBC >100,000 may have falsely elevated Potassium levels. ??For accurate Potassium quantification in these patients send serum separator tube (gold top) for subsequent determinations. ??Contact the Clinical Chemistry Laboratory if there are any questions. Chloride 96(L) 98 - 107 mmol/L [facility] Carbon Dioxide 14(L) 22 - 31 mmol/L [facility] Anion Gap 21(H) 5 - 15 mmol/L [facility] Calcium 9.0 8.5 - 10.5 mg/dL [facility] Protein, Total 6.6 6.1 - 8.0 g/dL [facility] Albumin 3.9 3.2 - 5.2 g/dL [facility] Aspartate Aminotransferase 1,227(H) 0 - 30 unit/L [facility] Alanine Aminotransferase 1,097(H) 0 - 30 unit/L [facility] Alkaline Phosphatase 108(H) 35 - 105 unit/L [facility] Bilirubin, Total 1.0 0.2 - 1.3 mg/dL [facility] Est Glomerular Filtration Rate 29(L) >=60 mL/min/1. 73 m?? [facility] Comment: This patient's estimated GFR [...] Lab Radha Hollins MD CHEMISTRY ORDERABL ES [facility] [place] [address] * XR Chest One View (05/12/2023 1:00 [...] who have questions please contact the health director of patient care that requested your imaging first. ? [...] patients who have questions please contactthe health director of patient care that requested your imaging first. Radha Hollins MD IMG DX ORDERABLES * (ABNORMAL) Coox2 (05/12/2023 12:30 AM EDT) pO2, Coox 22 mmHg [facility] Hgb Blood Gas 10.9(L) 11.7 - 15.5 g/dL [facility] Oxyhemoglobin, Coox 25.1 % [facility] Carboxyhemoglo bin, Coox 0.3 % [facility] Comment: Nonsmokers: 0.5-1.5% COHB Smokers: Variable, but usually less than 10% Toxic: 20-30% COHB Lethal: Greater than 60% COHB Methemoglobin, Coox 1.4 <=1.5 % [facility] Source Coox Mixed Venous [facility] Blood 05/12/2023 12:3 0 AM EDT 05/12/2023 12:30 AM EDT Radha Hollins MD POINT [place] [address] * XR Chest One View (05/11/2023 11:45 [...] who have questions please contact the health director of patient care that requested your imaging first. ? [...] patients who have questions please contactthe health director of patient care that requested your imaging first. Radha Hollins MD IMG DX ORDERABLES * (ABNORMAL) Lactate, whole blood, send to lab ([facility] (05/11/2023 7:40 PM EDT) Pathologist [facility] Lactate WB 4.8(Critic al) 0.5 - 2.2 mmol/L [facility] Comment:Called by: [facility], Read back by: Magdalena Baires, Date/Time:05/11/23 19:54. Blood 05/11/2023 7:40 PM EDT 05/11/2023 7:49 PM EDT Narrative Resulting Agency Comment Spec In Lab Radha Hollins MD CHEMISTRY ORDERABL ES [facility] [place] [address] * Urine culture (05/11/2023 7:22 PM EDT) Pathologist [facility] Urine Culture 50,000-99,000 cfu/ml Normal mucosal herman Susceptibilit y testing not routinely performed for Coagulase Negative Staphylococcu s species and other Gram Positive organisms from urine. [facility] Clean Catch Urine 05/11/2023 7:22 PM EDT 05/11/2023 8:50 PM EDT Narrative Resulting Agency Comment Spec In Lab Brody Kaplan APRN MICROBIOLOGY - GENE RAL ORDERABLES Performing Organization Address [facility] Co de Phone Number [facility] [place] [address] * (ABNORMAL) Urinalysis Microscopic Exam (05/11/2023 7:22 PM EDT) RBC, Urine 2 0 - 4 /HPF [facility] WBC, Urine >100(H) 0 - 5 /HPF [facility] Bacteria, Urine Occasional (A) None /HPF [facility] Squamous Epithelial Cells Raw Data, Urine 5(H) <=4 /HPF [facility] Hyaline Casts, Urine 3(H) 0 - 2 /LPF [facility] Clean Catch Urine 05/11/2023 7:22 PM EDT 05/11/2023 7:31 PM EDT Narrative Resulting Agency Comment Spec In Lab Brody Kaplan MACHINE PRESERVATIVE FILLER URINE ORDERABLES Performing Organization Address [facility] de Phone Number [facility] [place] [address] * (ABNORMAL) Urinalysis with reflex Culture (05/11/2023 7:22 PM EDT) Glucose, Urine Dipstick Negative Negative mg/dL [facility] Protein, Urine Dipstick Trace(A) Negative mg/dL [facility] Bilirubin, Urine Dipstick Negative Negative mg/dL [facility] Comment: Clinical correlation required for positive Urine Bilirubin results as false positive may occur with some drugs and drug related products. If a false positive is suspected a serum total bilirubin should be considered if clinically indicated. Urobilinogen, Urine Dipstick Normal Normal mg/dL [facility] pH, Urn (dipstick) 5.0 5.0 - 8.0 [facility] Blood, Urine Dipstick Trace(A) Negative mg/dL [facility] Ketone, Urine Dipstick Negative Negative mg/dL [facility] Nitrite, Urine Dipstick Negative Negative [facility] Leukocytes, Urine Dipstick Moderate(A) Negative mcL [facility] Appearance, Urine Dipstick Cloudy(A) Clear [facility] Specific [place] Urine Automated >=1.030(A) 1.005 - 1.030 [facility] Color, Urine Dipstick Yellow Yellow [facility] Reflex to Culture Yes [facility] Clean Catch Urine 05/11/2023 7:22 PM EDT 05/11/2023 7:31 PM EDT Narrative Resulting Agency Comment Spec In Lab Brody Kaplan APRN URINE ORDERABLES Performing Organization Address [facility]/ZIP Co de Phone Number [facility] [place] [address] * (ABNORMAL) pro-Brain Natriuretic Peptide (05/11/2023 7:11 PM EDT) NT-proBNP >35,000(H) <=124 pg/mL [facility] Blood 05/11/2023 7:11 PM EDT 05/11/2023 7:26 PM EDT Narrative Resulting Agency Comment Spec In Lab Radha Hollins MD CHEMISTRY ORDERABL ES Performing Organization Address [facility] Co de Phone Number [facility] [place] [address] * (ABNORMAL) Lactate, whole blood, send to lab ([facility] (05/11/2023 2:47 PM EDT) Lactate WB 2.9(H) 0.5 - 2.2 mmol/L [facility] Blood 05/11/2023 2:47 PM EDT 05/11/2023 2:53 PM EDT Narrative Resulting Agency Comment Spec In Lab Juan Luis Gonzalez MD CHEMISTRY ORDERABLES Performing Organization Address [facility]/ZIP Co de Phone Number [facility] [place] [address] * (ABNORMAL) CT Angiogram Abdomen & Pelvis [...] who have questions please contact the health director of patient care that requested your imaging first. ? Electronically signed by: Eileen Gomes MD, [facility] ([phone]), at 05/11/2023 2:42 PM Narrative 05/11/2023 2:42 [...] who have questions please contact the health director of patient care that requested your imaging first. ? Electronically signed by: Cullen Narayanan MD, [facility] ([phone]), at 05/11/2023 4:37 PM Narrative 05/11/2023 4:37 [...] 610 mm2 Circumference: 88 mm Calcification: Mild Hshcexy-wo-uekwyxxy height: Left: 6.2 mm Right: 5.8 mm THORACIC AORTA Description: Normal course and caliber. ??Mild diffuse atherosclerotic changes. No acute aortopathy noted. Family Law Mediator dimensions: Aortic root: 27.6 mm Max ascending aorta: 30.5 mm x 27.7 mm Suggested fluoroscopic angulation based on line extending through the nadirs of the three sinuses of Valsalva, set equidistant: ?? SAMOAN ??9 degrees; cranial 7 degrees MITRAL: Mitral [...] 610 mm2 Circumference: 88 mm Calcification: Mild Dqjdexy-xk-krecufju height: Left: 6.2 mm Right: 5.8 mm THORACIC AORTA Description: Normal course and caliber. Mild diffuse atheroscleroticchanges. No acute aortopathy noted. Family Law Mediator dimensions: Aortic root: 27.6 mm Max ascending aorta: 30.5 mm x 27.7 mm Suggested fluoroscopic angulation based on line extending through thenadirs of the three sinuses of Valsalva, set equidistant: SAMOAN 9 degrees; cranial 7 degrees MITRAL: Mitral [...] patients who have questions please contactthe health director of patient care that requested your imaging first. Electronically signed by: Cullen Narayanan MD, [facility]([phone]), at 05/11/2023 4:37 PM Antelmo Sharma MD [facility] CT ORDERABLES * (ABNORMAL) Lactate, whole blood, send to lab ([facility] (05/11/2023 9:29 AM EDT) Lactate WB 3.1(H) 0.5 - 2.2 mmol/L [facility] Blood 05/11/2023 9:29 AM EDT 05/11/2023 9:38 AM EDT Narrative Resulting Agency Comment Spec In Lab Juan Luis Gonzalez MD CHEMISTRY ORDERABLES Performing Organization Address City/[facility]/ZIP Co de Phone Number [facility] [place] [address] * (ABNORMAL) Differential, Automated (05/11/2023 4:42 AM EDT) Neutrophil % 78.1 % [facility] Neutrophil Absolute 5.46 1.70 - 6.10 x10(3)/mc L [facility] Lymph % 10.6 % [facility] Lymphocytes Abs 0.7(L) 0.9 - 3.2 x10(3)/mc L [facility] Monocyte % 9.6 % [facility] Monocyte Abs 0.7 0.3 - 0.9 x10(3)/mc L [facility] Eos % 0.0 % [facility] Eosinophils Abs 0.0 0.0 - 0.4 x10(3)/mc L [facility] Basophil % 0.4 % [facility] Baso Absolute 0.0 0.0 - 0.1 x10(3)/mc L [facility] Immature Gran % 1.30 % [facility] Comment: Immature granulocytes(IG's)percentage and absolute count will include metamyelocytes, myelocytes, and promyelocytes. Blood smears from CBCs yielding IG's will be scanned manually for concordance. If this scan disagrees with the automated IG or if promyelocytes are noted, a manual differential will be performed. Immature Gran Absolute 0.09(H) 0.00 - 0.04 x10(3)/mc L [facility] Blood 05/11/2023 4:42 AM EDT 05/11/2023 4:49 AM EDT Narrative Resulting Agency Comment Spec In Lab Klaudia Reid MD HEMATOLOGY OR DERABLES [facility] [place] [address] * (ABNORMAL) Hemogram (05/11/2023 4:42 AM EDT) White Blood Cell 7.0 4.0 - 9.5 x10(3)/mc L [facility] Red Blood Cell 3.44(L) 4.00 - 5.21 x10(6)/mc L [facility] Hemoglobin 11.1(L) 11.7 - 15.5 g/dL [facility] Hematocrit 32.7(L) 35.7 - 45.8 % [facility] Mean Cell Volume 95.1(H) 82.6 - 94.4 fL [facility] Mean Cell Hemoglobin 32.3(H) 27.1 - 32.0 pg [facility] Mean Cell Hemoglobin Concentration 33.9 31.7 - 35.0 g/dL [facility] Platelet 165 145 - 357 x10(3)/mc L [facility] RDW Standard Deviation 43.1 37.0 - 46.0 fL [facility] RDW coefficient of variation 12.7 11.5 - 14.1 % [facility] Mean Platelet Volume 10.1 7.6 - 12.9 fL [facility] NRBC% auto 0.0 % [facility] NRBC Absolute 0.000 0.000 - 0.000 x10(3)/ L [facility] Blood 05/11/2023 4:42 AM EDT 05/11/2023 4:49 AM EDT Narrative Resulting Agency Comment Spec In Lab Klaudia Reid MD HEMATOLOGY OR DERABLES [facility] [place] [address] * Heparin (unfractionated) Level (05/11/2023 4:42 AM EDT) UF Heparin 0.46 IU/mL [facility] Comment: Heparin (anti-Xa) [...] Lab Radha Hollins MD HEMATOLOGY ORDERAB LES [facility] [place] [address] * (ABNORMAL) Comprehensive metabolic panel (non-fasting) (05/11/2023 4:42 AM EDT) Glucose 143 65 - 199 mg/dL [facility] Comment:Diabetes: >=200 mg/d L plus symptoms Blood Urea Nitrogen 42(H) 8 - 18 mg/dL [facility] Creatinine 1.24(H) 0.70 - 1.20 mg/dL [facility] Sodium 134(L) 135 - 145 mmol/L [facility] Potassium 4.6 3.5 - 5.0 mmol/L [facility] Comment: Please note: ??Patients with WBC >100,000 may have falsely elevated Potassium levels. ??For accurate Potassium quantification in these patients send serum separator tube (gold top) for subsequent determinations. ??Contact the Clinical Chemistry Laboratory if there are any questions. Chloride 99 98 - 107 mmol/L [facility] Carbon Dioxide 14(L) 22 - 31 mmol/L [facility] Anion Gap 21(H) 5 - 15 mmol/L [facility] Calcium 9.6 8.5 - 10.5 mg/dL [facility] Protein, Total 7.2 6.1 - 8.0 g/dL [facility] Albumin 3.7 3.2 - 5.2 g/dL [facility] Aspartate Aminotransferase 144(H) 0 - 30 unit/L [facility] Comment:result rechecked-ssc Alanine Aminotransferase 130(H) 0 - 30 unit/L [facility] Comment:result rechecked-ssc Alkaline Phosphatase 72 35 - 105 unit/L [facility] Bilirubin, Total 0.8 0.2 - 1.3 mg/dL [facility] Est Glomerular Filtration Rate 48(L) >=60 mL/min/1. 73 m?? [facility] Comment: This patient's estimated GFR [...] Lab Radha Hollins MD CHEMISTRY ORDERABL ES [facility] [place] [address] * EKG 12 Lead (05/10/2023 1:16 PM EDT) Ventricular rate 118 BPM MUSE SYSTEM Atrial Rate 118 BPM MUSE SYSTEM P-R Interval 152 ms MUSE SYSTEM QRS Duration 104 ms MUSE SYSTEM Q-T Interval 316 ms MUSE SYSTEM QTC Calculated (Bezet) 442 ms MUSE SYSTEM Calculated P Parker 29 degrees MUSE SYSTEM Calculated R Parker 18 degrees MUSE SYSTEM Calculated T Parker -173 degrees MUSE SYSTEM INTERPRETATION Sinus tachycardia [...] Anterior leads Confirmed by MD Villareal Danette ([id number]) on 05/10/2023 8:47:46 PM MUSE SYSTEM 05/10/2023 1:16 PM EDT 05/10/2023 8:47 PM EDT Juan Luis Gonzalez MD ECG ORDERABLES MUSE SYSTEM * Lactate, whole blood, send to lab ([facility] (05/10/2023 11:52 AM EDT) Lactate WB 1.8 0.5 - 2.2 mmol/L [facility] Blood 05/10/2023 11:5 2 AM EDT 05/10/2023 12:13 PM EDT Narrative Resulting Agency Comment Spec In Lab Juan Luis Gonzalez MD CHEMISTRY ORDERABLES Performing Organization Address City/[facility] Co de Phone Number [facility] [place] [address] * XR Chest One View (05/10/2023 11:16 [...] who have questions please contact the health director of patient care that requested your imaging first. ? [...] patients who have questions please contactthe health director of patient care that requested your imaging first. Electronically signed by: ALIX RUVALCABA MD, [facility]([phone]), at 05/10/2023 1:25 PM Juan Luis Gonzalez MD IMG DX ORDERABLES * EKG 12 Lead (05/10/2023 7:59 AM EDT) Ventricular rate 115 BPM MUSE SYSTEM Atrial Rate 115 BPM MUSE SYSTEM P-R Interval 142 ms MUSE SYSTEM QRS Duration 102 ms MUSE SYSTEM Q-T Interval 322 ms MUSE SYSTEM QTC Calculated (Bezet) 445 ms MUSE SYSTEM Calculated P Parker 36 degrees MUSE SYSTEM Calculated R Parker 28 degrees MUSE SYSTEM Calculated T Parker -119 degrees MUSE SYSTEM INTERPRETATION Sinus tachycardia with frequent Premature ventricular complexes and Fusion complexes ST & T wave abnormality, consider lateral ischemia Abnormal ECG When compared with ECG of 08-MAY-2023 15:51, No significant change was found I personally reviewed the tracing and edited the fellows interpretation Confirmed by fellow MD Anitha, Carissa ([id number]) on 05/11/2023 6:19:54 AM Confirmed by MD Tram, Chel ([id number]) on 05/11/2023 3:18:56 PM MUSE SYSTEM 05/10/2023 7:59 AM EDT 05/11/2023 3:18 PM EDT Radha Hollins MD ECG ORDERABLES MUSE SYSTEM * (ABNORMAL) Differential, Automated (05/10/2023 2:28 AM EDT) Neutrophil % 77.1 % [facility] Neutrophil Absolute 4.01 1.70 - 6.10 x10(3)/mc L [facility] Lymph % 14.0 % [facility] Lymphocytes Abs 0.7(L) 0.9 - 3.2 x10(3)/mc L [facility] Monocyte % 7.7 % [facility] Monocyte Abs 0.4 0.3 - 0.9 x10(3)/mc L [facility] Eos % 0.4 % [facility] Eosinophils Abs 0.0 0.0 - 0.4 x10(3)/mc L [facility] Basophil % 0.4 % [facility] Baso Absolute 0.0 0.0 - 0.1 x10(3)/mc L [facility] Immature Gran % 0.40 % [facility] Comment: Immature granulocytes(IG's)percentage and absolute count will include metamyelocytes, myelocytes, and promyelocytes. Blood smears from CBCs yielding IG's will be scanned manually for concordance. If this scan disagrees with the automated IG or if promyelocytes are noted, a manual differential will be performed. Immature Gran Absolute 0.02 0.00 - 0.04 x10(3)/mc L [facility] Blood 05/10/2023 2:28 AM EDT 05/10/2023 2:57 AM EDT Narrative Resulting Agency Comment Spec In Lab Klaudia Reid MD HEMATOLOGY OR DERABLES Performing Organization Address City/[facility]/ZIP Co de Phone Number [facility] [place] [address] * (ABNORMAL) Hemogram (05/10/2023 2:28 AM EDT) White Blood Cell 5.2 4.0 - 9.5 x10(3)/mc L [facility] Red Blood Cell 3.11(L) 4.00 - 5.21 x10(6)/mc L [facility] Hemoglobin 10.2(L) 11.7 - 15.5 g/dL [facility] Hematocrit 30.2(L) 35.7 - 45.8 % [facility] Mean Cell Volume 97.1(H) 82.6 - 94.4 fL [facility] Mean Cell Hemoglobin 32.8(H) 27.1 - 32.0 pg [facility] Mean Cell Hemoglobin Concentration 33.8 31.7 - 35.0 g/dL [facility] Platelet 151 145 - 357 x10(3)/mc L [facility] RDW Standard Deviation 44.9 37.0 - 46.0 fL [facility] RDW coefficient of variation 12.8 11.5 - 14.1 % [facility] Mean Platelet Volume 9.8 7.6 - 12.9 fL [facility] NRBC% auto 0.0 % [facility] NRBC Absolute 0.000 0.000 - 0.000 x10(3)/mc L [facility] Blood 05/10/2023 2:28 AM EDT 05/10/2023 2:57 AM EDT Narrative Resulting Agency Comment Spec In Lab Klaudia Reid MD HEMATOLOGY OR DERABLES Performing Organization Address City/[facility] Co de Phone Number [facility] [place] [address] * (ABNORMAL) Comprehensive metabolic panel (non-fasting) (05/10/2023 2:28 AM EDT) Glucose 100 65 - 199 mg/dL [facility] Comment:Diabetes: >=200 mg/d L plus symptoms Blood Urea Nitrogen 30(H) 8 - 18 mg/dL [facility] Creatinine 0.90 0.70 - 1.20 mg/dL [facility] Sodium 134(L) 135 - 145 mmol/L [facility] Potassium 4.1 3.5 - 5.0 mmol/L [facility] Comment: Please note: ??Patients with WBC >100,000 may have falsely elevated Potassium levels. ??For accurate Potassium quantification in these patients send serum separator tube (gold top) for subsequent determinations. ??Contact the Clinical Chemistry Laboratory if there are any questions. Chloride 102 98 - 107 mmol/L [facility] Carbon Dioxide 20(L) 22 - 31 mmol/L [facility] Anion Gap 12 5 - 15 mmol/L [facility] Calcium 9.3 8.5 - 10.5 mg/dL [facility] Protein, Total 6.4 6.1 - 8.0 g/dL [facility] Albumin 3.7 3.2 - 5.2 g/dL [facility] Aspartate Aminotransferase 24 0 - 30 unit/L [facility] Alanine Aminotransferase 14 0 - 30 unit/L [facility] Alkaline Phosphatase 70 35 - 105 unit/L [facility] Bilirubin, Total 0.5 0.2 - 1.3 mg/dL [facility] Est Glomerular Filtration Rate 70 >=60 mL/min/1. 73 m?? [facility] Comment: This patient's estimated GFR [...] MD CHEMISTRY ORDERABL ES Performing Organization Address [facility] [place] [address] * Heparin (unfractionated) Level (05/10/2023 2:28 AM EDT) Pathologist [facility] UF Heparin 0.37 IU/mL [facility] Comment: Heparin (anti-Xa) levels should [...] MD HEMATOLOGY ORDERAB LES Performing Organization Address [facility] [place] [address] * (ABNORMAL) Differential, Automated (05/09/2023 4:00 AM EDT) Neutrophil % 81.7 % [facility] Neutrophil Absolute 5.26 1.70 - 6.10 x10(3)/mc L [facility] Lymph % 10.7 % [facility] Lymphocytes Abs 0.7(L) 0.9 - 3.2 x10(3)/mc L [facility] Monocyte % 6.5 % [facility] Monocyte Abs 0.4 0.3 - 0.9 x10(3)/mc L [facility] Eos % 0.5 % [facility] Eosinophils Abs 0.0 0.0 - 0.4 x10(3)/mc L [facility] Basophil % 0.3 % [facility] Baso Absolute 0.0 0.0 - 0.1 x10(3)/mc L [facility] Immature Gran % 0.30 % [facility] Comment: Immature granulocytes(IG's)percentage and absolute count will include metamyelocytes, myelocytes, and promyelocytes. Blood smears from CBCs yielding IG's will be scanned manually for concordance. If this scan disagrees with the automated IG or if promyelocytes are noted, a manual differential will be performed. Immature Gran Absolute 0.02 0.00 - 0.04 x10(3)/ L [facility] Blood 05/09/2023 4:00 AM EDT 05/09/2023 4:19 AM EDT Narrative Resulting Agency Comment Spec In Lab Klaudia Reid MD HEMATOLOGY OR DERABLES Performing Organization Address City/State/[facility] Co de Phone Number [facility] [place] [address] * (ABNORMAL) Hemogram (05/09/2023 4:00 AM EDT) White Blood Cell 6.4 4.0 - 9.5 x10(3)/ L [facility] Red Blood Cell 3.15(L) 4.00 - 5.21 x10(6)/mc L [facility] Hemoglobin 10.2(L) 11.7 - 15.5 g/dL [facility] Hematocrit 30.3(L) 35.7 - 45.8 % [facility] Mean Cell Volume 96.2(H) 82.6 - 94.4 fL [facility] Mean Cell Hemoglobin 32.4(H) 27.1 - 32.0 pg [facility] Mean Cell Hemoglobin Concentration 33.7 31.7 - 35.0 g/dL [facility] Platelet 151 145 - 357 x10(3)/ L [facility] RDW Standard Deviation 44.7 37.0 - 46.0 fL [facility] RDW coefficient of variation 12.8 11.5 - 14.1 % [facility] Mean Platelet Volume 9.4 7.6 - 12.9 fL [facility] NRBC% auto 0.0 % [facility] NRBC Absolute 0.000 0.000 - 0.000 x10(3)/mc L [facility] Blood 05/09/2023 4:00 AM EDT 05/09/2023 4:19 AM EDT Narrative Resulting Agency Comment Spec In Lab Klaudia Reid MD HEMATOLOGY OR DERABLES Performing Organization Address [facility] Co de Phone Number [facility] [place] [address] * Heparin (unfractionated) Level (05/09/2023 4:00 AM EDT) UF Heparin 0.47 IU/mL [facility] Comment: Heparin (anti-Xa) levels should [...] MD HEMATOLOGY ORDERAB LES Performing Organization Address [facility] Co de Phone Number [facility] [place] [address] * (ABNORMAL) Comprehensive metabolic panel (non-fasting) (05/09/2023 4:00 AM EDT) Glucose 108 65 - 199 mg/dL [facility] Comment:Diabetes: >=200 mg/d L plus symptoms Blood Urea Nitrogen 31(H) 8 - 18 mg/dL [facility] Creatinine 1.03 0.70 - 1.20 mg/dL [facility] Sodium 137 135 - 145 mmol/L [facility] Potassium 4.4 3.5 - 5.0 mmol/L [facility] Comment: Please note: ??Patients with WBC >100,000 may have falsely elevated Potassium levels. ??For accurate Potassium quantification in these patients send serum separator tube (gold top) for subsequent determinations. ??Contact the Clinical Chemistry Laboratory if there are any questions. Chloride 102 98 - 107 mmol/L [facility] Carbon Dioxide 20(L) 22 - 31 mmol/L [facility] Anion Gap 15 5 - 15 mmol/L [facility] Calcium 9.3 8.5 - 10.5 mg/dL [facility] Protein, Total 6.6 6.1 - 8.0 g/dL [facility] Albumin 3.8 3.2 - 5.2 g/dL [facility] Aspartate Aminotransferase 32(H) 0 - 30 unit/L [facility] Alanine Aminotransferase 18 0 - 30 unit/L [facility] Alkaline Phosphatase 78 35 - 105 unit/L [facility] Bilirubin, Total 0.5 0.2 - 1.3 mg/dL [facility] Est Glomerular Filtration Rate 60 >=60 mL/min/1. 73 m?? [facility] Comment: This patient's estimated GFR [...] Lab Radha Hollins MD CHEMISTRY ORDERABL ES [facility] [place] [address] * (ABNORMAL) pro-Brain Natriuretic Peptide (05/08/2023 4:00 PM EDT) NT-proBNP 25,503(H) <=124 pg/mL [facility] Blood Venous Draw / Unknown 05/08/2023 4:00 PM EDT 05/08/2023 4:25 PM EDT Narrative Resulting Agency Comment Spec In Lab Juan Luis Gonzalez MD CHEMISTRY ORDERABLES [facility] [place] [address] * Magnesium (05/08/2023 4:00 PM EDT) Pathologist [facility] Magnesium 0.82 0.69 - 1.07 mmol/L [facility] Blood 05/08/2023 4:00 PM EDT 05/08/2023 4:06 PM EDT Narrative Resulting Agency Comment Spec In Lab Enrique Chua MD CHEMISTRY ORDERABLES Performing Organization Address [facility]/ZIP Co de Phone Number [facility] [place] [address] * Potassium (05/08/2023 4:00 PM EDT) Pathologist [facility] Potassium 3.9 3.5 - 5.0 mmol/L [facility] Comment: Please note: ??Patients [...] MD CHEMISTRY ORDERABL ES Performing Organization Address City/[facility]/ZIP Co de Phone Number [facility] [place] [address] * Heparin (unfractionated) Level (05/08/2023 4:00 PM EDT) UF Heparin 0.43 IU/mL [facility] Comment: Heparin (anti-Xa) [...] MD HEMATOLOGY ORDERAB LES Performing Organization Address City/State/[facility] Co de Phone Number [facility] [place] [address] * EKG 12 Lead (05/08/2023 3:51 PM EDT) Ventricular rate 98 BPM MUSE SYSTEM Atrial Rate 98 BPM MUSE SYSTEM P-R Interval 150 ms MUSE SYSTEM QRS Duration 102 ms MUSE SYSTEM Q-T Interval 358 ms MUSE SYSTEM QTC Calculated (Bezet) 457 ms MUSE SYSTEM Calculated P Parker 38 degrees MUSE SYSTEM Calculated R Parker 48 degrees MUSE SYSTEM Calculated T Parker -112 degrees MUSE SYSTEM INTERPRETATION Sinus rhythm with frequent and consecutive Premature ventricular and fusion complexes Septal infarct , age undetermined ST & T wave abnormality, consider anterolateral ischemia Abnormal ECG When compared with ECG of 09-NOV-2022 11:17, T wave inversion now evident in Anterolateral leads Confirmed by MD Harshil, Enrique Bell ([id number]) on 05/10/2023 8:11:46 AM MUSE SYSTEM 05/08/2023 3:51 PM EDT 05/10/2023 8:11 AM EDT Radha Hollins MD ECG ORDERABLES MUSE SYSTEM * (ABNORMAL) Differential, Automated (05/08/2023 11:38 AM EDT) Neutrophil % 71.3 % [facility] Neutrophil Absolute 2.91 1.70 - 6.10 x10(3)/mc L [facility] Lymph % 19.1 % [facility] Lymphocytes Abs 0.8(L) 0.9 - 3.2 x10(3)/mc L [facility] Monocyte % 9.0 % [facility] Monocyte Abs 0.4 0.3 - 0.9 x10(3)/mc L [facility] Eos % 0.2 % [facility] Eosinophils Abs 0.0 0.0 - 0.4 x10(3)/mc L [facility] Basophil % 0.2 % [facility] Baso Absolute 0.0 0.0 - 0.1 x10(3)/mc L [facility] Immature Gran % 0.20 % [facility] Comment: Immature granulocytes(IG's)percentage and absolute count will include metamyelocytes, myelocytes, and promyelocytes. Blood smears from CBCs yielding IG's will be scanned manually for concordance. If this scan disagrees with the automated IG or if promyelocytes are noted, a manual differential will be performed. Immature Gran Absolute 0.01 0.00 - 0.04 x10(3)/mc L [facility] Blood 05/08/2023 11:3 8 AM EDT 05/08/2023 11:44 AM EDT Narrative Resulting Agency Comment Spec In Lab Lincoln Sal MD HEMATOLOGY ORDERA BLES [facility] [place] [address] * (ABNORMAL) Hemogram (05/08/2023 11:38 AM EDT) White Blood Cell 4.1 4.0 - 9.5 x10(3)/mc L [facility] Red Blood Cell 3.05(L) 4.00 - 5.21 x10(6)/mc L [facility] Hemoglobin 10.2(L) 11.7 - 15.5 g/dL [facility] Hematocrit 29.6(L) 35.7 - 45.8 % [facility] Mean Cell Volume 97.0(H) 82.6 - 94.4 fL [facility] Mean Cell Hemoglobin 33.4(H) 27.1 - 32.0 pg [facility] Mean Cell Hemoglobin Concentration 34.5 31.7 - 35.0 g/dL [facility] Platelet 136(L) 145 - 357 x10(3)/mc L [facility] RDW Standard Deviation 44.3 37.0 - 46.0 fL [facility] RDW coefficient of variation 12.6 11.5 - 14.1 % [facility] Mean Platelet Volume 9.4 7.6 - 12.9 fL [facility] NRBC% auto 0.0 % [facility] NRBC Absolute 0.000 0.000 - 0.000 x10(3)/[facility] Blood 05/08/2023 11:3 8 AM EDT 05/08/2023 11:44 AM EDT Narrative Resulting Agency Comment Spec In Lab Lincoln Sal MD HEMATOLOGY ORDERA BLES Performing Organization Address City/[facility] Co de Phone Number [facility] [place] [address] * TSH (05/08/2023 11:38 AM EDT) Thyroid Stimulating Hormone 1.27 0.27 - 4.20 mcIU/mL [facility] Comment: Reference Interval (mcIU/mL): Females: ??First Trimester: 0.23-3.88 ??Second Trimester: 0.22-3.90 ??Third Trimester: 0.44-4.66 Blood 05/08/2023 11:3 8 AM EDT 05/08/2023 11:44 AM EDT Narrative Resulting Agency Comment Spec In Lab Enrique Chua MD CHEMISTRY ORDERABLES [facility] [place] [address] * (ABNORMAL) Phosphorus (05/08/2023 11:38 AM EDT) Phosphorus 4.7(H) 2.5 - 4.5 mg/dL [facility] Blood 05/08/2023 11:3 8 AM EDT 05/08/2023 11:44 AM EDT Narrative Resulting Agency Comment Spec In Lab Enrique Chua MD CHEMISTRY ORDERABLES Performing Organization Address City/[facility] Co de Phone Number [facility] [place] [address] * Magnesium (05/08/2023 11:38 AM EDT) Magnesium 0.76 0.69 - 1.07 mmol/L [facility] Blood 05/08/2023 11:3 8 AM EDT 05/08/2023 11:44 AM EDT Narrative Resulting Agency Comment Spec In Lab Enrique Chua MD CHEMISTRY ORDERABLES Performing Organization Address City/[facility] Co de Phone Number [facility] [place] [address] * (ABNORMAL) Basic Metabolic Panel (non-fasting) (05/08/2023 11:38 AM EDT) Glucose 97 65 - 199 mg/dL [facility] Comment:Diabetes: >=200 mg/d L plus symptoms Blood Urea Nitrogen 27(H) 8 - 18 mg/dL [facility] Creatinine 1.02 0.70 - 1.20 mg/dL [facility] Sodium 139 135 - 145 mmol/L [facility] Potassium 4.2 3.5 - 5.0 mmol/L [facility] Comment: Please note: ??Patients with WBC >100,000 may have falsely elevated Potassium levels. ??For accurate Potassium quantification in these patients send serum separator tube (gold top) for subsequent determinations. ??Contact the Clinical Chemistry Laboratory if there are any questions. Chloride 105 98 - 107 mmol/L [facility] Carbon Dioxide 20(L) 22 - 31 mmol/L [facility] Anion Gap 14 5 - 15 mmol/L [facility] Calcium 9.4 8.5 - 10.5 mg/dL [facility] Est Glomerular Filtration Rate 60 >=60 mL/min/1. 73 m?? [facility] Comment: This patient's estimated GFR [...] In Lab Enrique Chua MD CHEMISTRY ORDERABLES [facility] [place] [address] * ECHO COMPLETE (05/08/2023 11:02 AM EDT) EF 25 [facility] SYSTEM Anatomical Region Laterality Modality Cardiac Other 05/08/2023 10:0 3 AM EDT Narrative 05/08/2023 11:51 AM EDT ? Echocardiogram Report Name: PURNIMA THACKER ?Study Date: 05/08/2023 10:03 AMBP: 92/64 mmHg ? Patient Location: [facility]^CV29^A : 1955 ? Height: 155 cm ? Account: [id number] Age: 67 yrs ? Weight: 78 kg Gender: Female ?BSA: 1.8 m2 Ordering Physician: ENRIQUE CHUA Referring Physician: MARIO ALBERTO CHIN Performed By: CHUCKIE Canchola Reason For Study: SAVR Stenosis Exam Location: [facility]. Interpretation Summary -Left ventricle is severely [...] worsening stenosis. Mitral regurgitation is similar. Procedure Complete-63318. Satisfactory quality. There is normal sinus rhythm. [...] Study Date: 0:03 AMBP: 92/64 mmHg [facility] CENTER^CV29^A : 1955 Height: 155 cm Account: [id number] Age: 67 yrs Weight: 78 kg Gender: Female BSA: 1.8 m2 Ordering Physician: ENRIQUE CHUA Referring Physician: MARIO ALBERTO CHIN Performed By: CHUCKIE Canchola Reason For Study: SAVR Stenosis Exam Location: [facility]. Interpretation Summary -Left ventricle is severely [...] suggestsworsening stenosis. Mitral regurgitation is similar. Procedure Complete-20516. Satisfactory quality. There is normal sinus rhythm. 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 Rate/Dose Verify 05/17/2023 [...] post-op day 1 in the AM Give [place] if unable to take PO, Routine Group [...] Routine documented in this encounter Care Teams Casting Finisher Relationship Specialty Start Date End Date Magdalena Acosta MD [address] [place] [address] PCP - General Family Medicine 02/05/23 documented as of this encounter
--- OUTSIDE RECORDS SUMMARY | 2024-04-11 14:19 | XMS_ITS | Encounter Summary ---
Author Organization [place] [address] Care Team Providers Care Glove Operator Name Role Phone Magdalena Acosta MD Primary Care Provider [phone] Encounter Details Date Type Department Care Team (Latest Contact Info) Description 02/05/2023 9:33 PM EDT - 02/05/2023 11:59 PM EDT Hospital [place] [phone] Discharge Disposition: Home Social History Tobacco Use [...] 4:15 PM EDT Office Visit Dermatology at [place] [address] [place] [address] Marek Bonilla MD [address] [facility] [place] [address] documented as of this encounter Procedures Procedure Name Priority Date/Time Associated Diagnosis Comments SURGICAL PATHOLOGY REPORT Routine 02/05/2023 3:00 PM EDT documented in this encounter Results * Surgical Pathology Report (02/05/2023 3:00 PM EDT) Final Diagnosis [id number] ? Location: [facility]W The signing pathologist has (i) examined the relevant preparation(s) for the specimen(s) and (ii) rendered or confirmed the diagnosis(es). . ?Surgical Pathology DIAGNOSIS Left upper back, skin punch biopsy: - ??Compound dysplastic ??melanocytic nevus with moderate atypia, transected at peripheral specimen edges ?? (see discussion) Electronically signed by: ?Vanna CULP, Jesse Shields Verified: ??02/16/2023 8:04 ?? Dermatopathologist Performed at: ??-[facility] Dept. of Pathology, [place] [address] Maintenance Mechanic Technician: Kunal Rubi MD, FCAP, ??CLIA Certificate: [id number] DISCUSSION If there is an obvious clinical [...] labeled A1. ??sns 02/16/2023 8:04 AM EDT [facility] SPECIMEN FROM SKIN / Unknown 02/05/2023 3:00 PM EDT 02/05/2023 3:00 PM EDT Marek Bonilla MD PATHOLOGY/CYTOLOGY O RDERABLES [facility] [place] [address] [facility] [place] [address] documented in this encounter Visit Diagnoses Not on filedocumented in this encounter Care Teams Glove Operator Relationship Specialty Start Date End Date Magdalena Acosta MD [address] [place] [address] PCP - General Family Medicine 02/05/23 documented as of this encounter
--- OUTSIDE RECORDS SUMMARY | 2024-04-11 14:19 | XMS_ITS | Encounter Summary ---
Author Organization Count Includes [facility] [place] [address] Care Team Providers Care Glass Vial Filler Name Role Phone Magdalena Acosta MD Primary Care Provider [phone] Encounter Details Date Type Department Care Team (Late st Contact Info) Description 02/17/2023 2:00 PM EDT Office [place] [phone] Alirio Esparza MD Aortic valve stenosis, etiology [...] 4:15 PM EDT Office Visit Dermatology at [place] [address] [place] [address] Marek Bonilla MD [address] [place] [address] documented as of this encounter Visit Diagnoses Diagnosis Aortic valve stenosis, etiology of cardiac valve disease unspecified documented in this encounter Care Teams Glass Vial Filler Relationship Specialty Start Date End Date Magdalena Acosta MD [address] [place] [address] PCP - General Family Medicine 02/05/23 documented as of this encounter
--- OUTSIDE RECORDS SUMMARY | 2024-04-11 14:19 | XMS_ITS | Encounter Summary ---
Author Organization [facility] [place] [address] Care Team Providers Care Diplomatic Officer Name Role Phone Magdalena Acosta MD Primary Care Provider [phone] Reason for Referral * Consultation (Routine) - Closed Specialty Diagnoses / Procedures Referred By Contac t Referred To Contact Rheumatology Diagnoses Weakness Kyra Haas MD [facility] [address] [place] [address] [facility] [address] [place] [phone] Referral ID Status Reason Start Date Expiration Date V isits Requested Visits Authorized [id number] Closed Consult, Test & Treat PCP Updated and/or Approved 02/25/2023 02/25/2024 6 6 Encounter Details Date Type Department Care Team (Late st Contact Info) Description 02/25/2023 Transcribe Orders eDH Incoming Referrals [phone] Magdalena Acosta MD [address] [place] [address] Weakness Social History Tobacco Use [...] EDT Office Visit Dermatology at [place] [address] [place] [address] Marek Bonilla MD [address] [place] [address] Scheduled Referrals Name Type Priority Associated Diagnoses Order Schedule Referral to Rheumatology Outpatient Referral Routine Weakness Ordered: 02/25/2023 documented as of this encounter Visit Diagnoses Diagnosis Weakness Other malaise and fatigue documented in this encounter Care Teams Diplomatic Officer Relationship Specialty Start Date End Date Magdalena Acosta MD [address] [place] [address] PCP - General Family Medicine 02/05/23 documented as of this encounter
--- OUTSIDE RECORDS SUMMARY | 2024-04-11 14:19 | XMS_ITS | Encounter Summary ---
[place] [address] Care Team Providers Care Circulation Analyst Name Role Phone Magdalena Acosta MD Primary Care Provider [phone] Encounter Details Date Type Department Care Team [...] PM EDT Office Visit Dermatology at [address] [place] [address] Marek Bonilla MD [address] [facility], [place] [address] documented as of this encounter Visit Diagnoses Not on filedocumented in this encounter Care Teams Circulation Analyst Relationship Specialty Start Date End Date Magdalena Acosta MD [address] [place] [address] PCP - General Family Medicine 02/05/23 documented as of this encounter
--- OUTSIDE RECORDS SUMMARY | 2024-04-11 14:19 | XMS_ITS | Encounter Summary ---
Author Organization [facility] [place] [address] Care Team Providers Care Medical Dermatologist Name Role Phone Magdalena Acosta MD Primary Care Provider Encounter Details Date Type Department Care Team (Late st Contact Info) Description 05/08/2023 [place] [phone] Luis Felipe Ott MD [facility] [address] Social History Tobacco Use Types Packs/Day Years [...] 0426 Referring Provider: Nitesh Baltazar Patient Location: [facility] Presenting Symptoms per OSH: 67 [...] diuresis with IV furosemide 20 x 1 ([id number]/47 at rheumatology appointment), SpO2 85% on RA -> 95% on 2L NC, HR 120s. Examination significant for decreased breath sounds at the bases. Pertinent Diagnostic Findings: CBC - Hgb 10.5 CMP - Cr 1.1 BNP 35182 HsTrop 1358 Lactate 1.6 D-dimer 1183, CTPE pending CXR demonstrated pulmonary vascular congestion US showed bilateral b lines Bedside echo reportedly similar to prior TTE for LV function OSH Interventions: ASA 324 Heparin gtt Plan: Transfer to [facility] Above recommendations/plans are based on my conversation with the referring provider. I have not personally interviewed or examined this patient. Luis Felipe Ott MD Oven Loader Received a call from provider emergently at 715am. Mentating well and BP 87/53. HR 108 and diursingwell. They were about to start phenylephrine which I stressed was not a good option given concern for severe and increasing afterload. She is warm on exam, mentating and urinating and we do not need to amrit a BP if those things remain stable. Nico Segura, PGY-6 Oven Loader [id number] documented in this encounter Plan of Treatment Upcoming Encounters Date Type Department Care Team (Late st Contact Info) Description 03/01/2025 4:15 PM EDT Office Visit Dermatology at [place] [address] [place] [address] Marek Bonilla MD [address] [place] [address] documented as of this encounter Visit Diagnoses Not on filedocumented in this encounter Care Teams Medical Dermatologist Relationship Specialty Start Date End Date Magdalena Acosta MD [address] [place] [address] PCP - General Family Medicine 02/05/23 documented as of this encounter
--- OUTSIDE RECORDS SUMMARY | 2024-04-11 14:19 | XMS_ITS | Encounter Summary ---
Author Organization [facility] Address [facility] [place] [address] Care Team Providers Care Oracle Application Consultant Name Role Phone Magdalena Acosta MD Primary Care Provider [phone] Encounter Details Date Type Department Care Team (Late st Contact Info) Description 04/27/2023 3:00 PM EDT Office [place] [address] Magdalena Peralta MD [facility] [place] [address] Mixed connective tissue disease Social History Tobacco [...] 1:5120 speckled; VIC negative; Myositis panel with STAGE ELECTRICIAN ab 149.1 (positive); Anti U1RNP IgG 119; [...] PM EDT Office Visit Dermatology at [place] [address] [facility] [place] [phone] Marek Bonilla MD [address] [facility] [place] [address] documented as of this encounter Visit Diagnoses Diagnosis Mixed connective tissue disease Other specified diffuse disease of connective tissue documented in this encounter Care Teams Oracle Application Consultant Relationship Specialty Start Date End Date Magdalena Acosta MD [address] [place] [address] PCP - General Family Medicine 02/05/23 documented as of this encounter
--- OUTSIDE RECORDS SUMMARY | 2024-04-11 14:19 | XMS_ITS | Encounter Summary ---
[place] [address] Care Team Providers Care Cam Milling Machine Operator Name Role Phone Magdalena Acosta MD Primary Care Provider [phone] Encounter Details Date Type Department Care Team [...] PM EDT Office Visit Dermatology at [address] [place] [address] Marek Bonilla MD [address] [facility], [place] [address] documented as of this encounter Visit Diagnoses Not on filedocumented in this encounter Care Teams Cam Milling Machine Operator Relationship Specialty Start Date End Date Magdalena Acosta MD [address] [place] [address] PCP - General Family Medicine 02/05/23 documented as of this encounter
--- OUTSIDE RECORDS SUMMARY | 2024-04-11 14:19 | XMS_ITS | Encounter Summary ---
Author Organization [facility] [address] [facility] [place] [address] Care Team Providers Care Stripper Preliminary Name Role Phone Magdalena Acosta MD Primary Care Provider [phone] Reason for Visit * Consultation (Routine) - Closed Specialty Diagnoses / Procedures Referred By Contac t Referred To Contact Rheumatology Diagnoses Weakness Kyra Haas MD [facility] [address] [place] [address] [facility] Rheumatology [address] [place] [phone] Referral ID Status Reason Start Date Expiration Date V isits Requested Visits Authorized [id number] Closed Consult, Test & Treat PCP Updated and/or Approved 02/25/2023 02/25/2024 6 6 Encounter Details Date Type Department Care Team (Late st Contact Info) Description 03/18/2023 1:00 PM EDT [place] [address] Kia Viramontes DO [facility] [place] [address] Magdalena Peralta MD [facility] [place] [address] Positive FRANCISCO (antinuclear antibody) Social [...] 1:5120 speckled VIC negative Myositis panel with SENIOR SCIENCE CONSULTANT ab 149.1 (positive) Anti U1RNP IgG [...] a chair without assistance of upper extremities. 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 Recommendations: #mixed connective tissue disease Start hydroxychloroquine 200 mg qd Labs today: repeat FRANCISCO, dsDNA, complements, CBC, CMP, CK, ESR, CRP Follow up 1 month The patient was seen and discussed with Dr. Wander Peralta MD Rheumatology Fellow Pager: [phone] CC: Kyra Haas * Kia Viramontes DO [...] PM EDT Office Visit Dermatology at [place] [address] [place] [address] Marek Bonilla MD [address] [facility], [place] [address] documented as of this encounter Results * Comprehensive metabolic panel (non-fasting) (03/18/2023 2:14 PM EDT) Glucose 93 65 - 199 mg/dL [facility] Comment:Diabetes: >=200 mg/d L plus symptoms Blood Urea Nitrogen 18 8 - 18 mg/dL [facility] Creatinine 0.99 0.70 - 1.20 mg/dL [facility] Sodium 141 135 - 145 mmol/L [facility] Potassium 4.5 3.5 - 5.0 mmol/L [facility] Comment: Please note: ??Patients with WBC >100,000 may have falsely elevated Potassium levels. ??For accurate Potassium quantification in these patients send serum separator tube (gold top) for subsequent determinations. ??Contact the Clinical Chemistry Laboratory if there are any questions. Chloride 106 98 - 107 mmol/L [facility] Carbon Dioxide 24 22 - 31 mmol/L [facility] Anion Gap 11 5 - 15 mmol/L [facility] Calcium 10.0 8.5 - 10.5 mg/dL [facility] Protein, Total 7.3 6.1 - 8.0 g/dL [facility] Albumin 4.3 3.2 - 5.2 g/dL [facility] Aspartate Aminotransferase 26 0 - 30 unit/L [facility] Alanine Aminotransferase 11 0 - 30 unit/L [facility] Alkaline Phosphatase 91 35 - 105 unit/L [facility] Bilirubin, Total 0.4 0.2 - 1.3 mg/dL [facility] Est Glomerular Filtration Rate 62 >=60 mL/min/1. 73 m?? [facility] Comment: This patient's estimated GFR was [...] DO CHEMISTRY ORDERABL ES Performing Organization Address City/State/[facility] Co de Phone Number [facility] [place] [address] * (ABNORMAL) FRANCISCO Ab by IFA (03/18/2023 2:14 PM EDT) FRANCISCO Ab Screen Test ? Result ?Flag ??Unit ??RefValue Antinuclear Ab, HEp-2 ?Positive 1:2560 ??@ ?<1:80 (Negative) ??Substrate, S ? ADDITIONAL INFORMATION --------- ?Method: Immunofluorescence using HEp-2 cellular substrate. ??FRANCISCO Titer: ? 1:2560 ??FRANCISCO Pattern: ? Speckled ?Test Performed by: ?[facility] ?[address] [place] [address] ?Rhinestone Setter: Raymond Chaudhry M.D. Ph.D.; CLIA# [id number] ([id number]) [facility] Blood 03/18/2023 2:14 PM EDT 03/18/2023 3:02 PM EDT Narrative Resulting Agency Comment Spec In Lab Kia Viramontes DO CHEMISTRY ORDERABL ES Performing Organization Address [facility] de Phone Number [facility] [place] [address] * DNA Antibody (Double-Stranded) (03/18/2023 2:14 PM EDT) [facility] dsDNA Ab <0.6 <=15.0 IU/mL [facility] Comment: <10 negative 10-15 equivocal >15 positive This dsDNA antibody result was generated using a fluoroenzyme immunoassay on the Chainalyticsdia 250 analyzer. This quantitative test is designed to detect IgG antibodies directed against double stranded DNA in human serum. The presence of antibodies that recognize dsDNA is a highly specific marker for systemic lupus erythematosus. Please note that as of 05/26/2022 that this testing is performed by the Special Chemistry Laboratory at [facility]. This change in testing location is associated with a change is testing method and reference intervals. Please review the results of this test in association with the posted reference intervals. Blood 03/18/2023 2:14 PM EDT 03/19/2023 7:19 AM EDT Narrative Resulting Agency Comment Spec In Lab Kia Viramontes DO LAB SEND OUT ORDER JODIE Performing Organization Address [facility]/ZIP Co de Phone Number [facility] [place] [address] * CK (03/18/2023 2:14 PM EDT) Creatine Kinase 38 0 - 160 unit/L [facility] Blood 03/18/2023 2:14 PM EDT 03/18/2023 2:24 PM EDT Narrative Resulting Agency Comment Spec In Lab Kia D Wander DO CHEMISTRY ORDERABL ES Performing Organization Address [facility] Co de Phone Number [facility] [place] [address] * C4 Complement (03/18/2023 2:14 PM EDT) Complement C4 30 10 - 40 mg/dL [facility] Blood 03/18/2023 2:14 PM EDT 03/18/2023 2:24 PM EDT Narrative Resulting Agency Comment Spec In Lab Kia D Wander DO CHEMISTRY ORDERABL ES Performing Organization Address [facility] Co de Phone Number [facility] [place] [address] * C3 Complement (03/18/2023 2:14 PM EDT) Complement C3 142 90 - 180 mg/dL [facility] Blood 03/18/2023 2:14 PM EDT 03/18/2023 2:24 PM EDT Narrative Resulting Agency Comment Spec In Lab Kia D Wander DO CHEMISTRY ORDERABL ES Performing Organization Address [facility] Co de Phone Number [facility] [place] [address] * CRP, acute inflammation (03/18/2023 2:14 PM EDT) C-Reactive Protein 3.0 <=4.9 mg/L [facility] Blood 03/18/2023 2:14 PM EDT 03/18/2023 2:24 PM EDT Narrative Resulting Agency Comment Spec In Lab Kia Viramontes DO CHEMISTRY ORDERABL ES Performing Organization Address City/[facility]/ZIP Co de Phone Number [facility] [place] [address] * (ABNORMAL) Sedimentation rate (03/18/2023 2:14 PM EDT) Sedimentation Rate Automated 68(H) 2 - 39 mm/hr [facility] Comment: Effective July 12, 2019 new capillary photometric technology has resulted in a change in reference ranges. It is recommended that each ESR result be reviewed with its own age appropriate reference range. Blood 03/18/2023 2:14 PM EDT 03/18/2023 2:24 PM EDT Narrative Resulting Agency Comment Spec In Lab Kia Viramontes DO HEMATOLOGY ORDERAB LES Performing Organization Address City/[facility] Co de Phone Number [facility] [place] [address] documented in this encounter Visit Diagnoses Diagnosis Positive FRANCISCO (antinuclear antibody) Other and unspecified nonspecific immunological findings documented in this encounter Care Teams Stripper Preliminary Relationship Specialty Start Date End Date Magdalena Acosta MD [address] [place] [address] PCP - General Family Medicine 02/05/23 documented as of this encounter
--- OUTSIDE RECORDS SUMMARY | 2024-04-11 14:19 | XMS_ITS | Encounter Summary ---
[facility] Organization [facility] [place] [address] Care Team Providers Care Casting Associate Name Role Phone Magdalena Acosta MD Primary Care Provider [phone] Reason for Visit * Auth/Cert (Routine) Specialty Diagnoses / Procedures Referred By Contac t Referred To Contact Diagnoses Symptomatic severe aortic stenosis with low ejection fraction NSTEMI, CHF Enrique Chua MD [facility] [place] [address] [facility] Referral ID Status Reason Start Date Expiration Date Visits Re quested Visits Authorized [id number] 1 1 Encounter Details Date Type Department Care Team (Late st Contact Info) Description 05/12/2023 2:50 PM EDT - 05/12/2023 3:50 PM EDT Surgery [place] [address] Antelmo Sharma MD [facility] [place] [address] CARDIAC CATHETERIZATION Social History Tobacco Use Types [...] Patient Age: 67 y.o. Birthdate: 1955 Language: Greek Race: White Ethnicity: Not nor Admit Date: 05/08/2023 Discharge Date: 05/22/2023 Attending Physician: Alirio Hudson MD Follow-up Recommendations for Providers: Please continue routine management of cardiovascular risk factors including blood pressure, lipids,glucose, etc. Please note any medication changes. Patient to follow up with PCP, Magdalena Acosta MD, or Primary Specimen Accessioner, Avis Mejia MD, in ~ 7-10 days. Patient to follow up with Raw Juice Weigher, Dr. Antelmo Sharma, in 2 weeks with an EKG, Echo, CBC, and CMP. Patient to follow up with Nephrology, their office to arrange. Ubbk-Jhjagq-rd interval: After initial 30 day follow-up appointment , all TAVR patients will follow-up again in one year with an echo. 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 Secondary Diagnoses: Active Hospital Problems Diagnosis S/P TAVR (transcatheter aortic valve replacement) Cardiogenic shock Symptomatic severe aortic stenosis with low ejection fraction Mild coronary artery disease by [facility] 11/09/2022 Heart failure with reduced ejection [...] Tube Placement Right 05/18/2023 Laure Ricks PA [facility] RAD PRG CATH PLMT LEFT HEART CATH & ARTS W/INJ & ANGIO IMG S&I N/A 11/09/2022 CORONARY ANGIOGRAPHY; W [facility],POSSIBLE PCI (WRVU 5.6) performed by Mario Alberto Escobedo MD at [facility] CATH LABS PRG COMBINED RIGHT & LEFT HEART CATH W/INJ L VENTRICULOGRAPHY, IMG S&I N/A 05/12/2023 COMBINED RIGHT & LEFT HEART CATH,INC INJ FOR L VENTRICULOGRAPHY (WRVU 5.99) performed by Antelmo Sharma MD at [facility] CATH LABS PRO AORTOPLAS FOR SUPRAVALV STEN N/A 09/21/2016 @AORTOPLASTY FOR SUPRAVALVULAR STENOSIS (WRVU 29.33) performed by Alirio Hudson MD at [facility] MAIN OR PRO REPLACE AORTIC VALVE (TAVR/FEDERICO)PERC FEMORAL ARTERY APPROACH 05/12/2023 @TRANSCATHETER AORTIC VALVE REPLACEMENT (TAVR), PERCUTANEOUS FEMORAL (WRVU 22.47) performed by Alirio Hudson MD at [facility] CATH LABS PRO REPLACEMENT PROSTHETIC AORTIC VALVE OPEN W CARDIOPULMONARY BYPASS HOMOGRF/STENT N/A 09/21/2016 @REPLACE AORTIC VALVE, OPEN, W\CPB, W\PROSTHETIC VALVE (WRVU 41.32) performed by Alirio Hudson MD at [facility] MAIN OR Prior To Admission Medications Medications [...] Major Procedures/Operations: 05/12/23: Successful right transfemoral TAVR Cbish-bm-Kjipc with a 23 mm Lai 3 THV. Left coronary protection with left main MINNA. Hospital Course: #Severe prosthetic s/p valve in valve TF TAVR #Low coronary heights s/p left main stent for coronary protection #Type 2 NSTEMI, present on arrival, resolved #Acute decompensated HFrEF #Cardiogenic shock #EVANS / Cardiorenal syndrome Purnima Thacker was admitted to [facility] on 05/08/2023 via the Cardiology [...] TAVR and she was brought to the orthodontic lab technician the following morning where Drs. Alirio [...] if you have questions. Please call your Raw Juice Weigher's office if you have any discharge or drainage from your procedural sites. Your Raw Juice Weigher, Dr. Antelmo Sharma and/or the Clarity Developer may be reached at . Antibiotic prophylaxis: [...] friends, go to a movie, go to religion, etc. Heavy activities: No hunting, skiing, jogging, [...] pain, warmth or drainage. Please call your title agent's office if you have any discharge or drainage from your procedural sites. If there is a lot of swelling, apply mamta wraps during the day and remove at bedtime. Elevate your legs when you are sitting. Home oxygen therapy: N/A Follow up appointments: Please schedule a follow-up appointment with your PCP, Magdalena Acosta MD, or Primary Specimen Accessioner in ~ 7-10 days. You have a follow-up appointment with your Raw Juice Weigher, Dr. Atnelmo Sharma, in 2 weeks with an EKG, Echo, and labs prior to your appointment. You will need follow-up with Nephrology, their office will arrange. Idzu-Muzfik-mn interval: After initial 30 day follow-up appointment , all TAVR patients will follow-up again in one year with an echo. Cardiac Rehabilitation: Purnima Tahcker was seen today regarding participation in the outpatient Phase 2 Cardiac Rehabilitation at [facility]. The patient agrees to a referral to this program. The referral will be sent at discharge and the patient should be contacted by the Program within 1- 2 weeks from discharge. Future Appointments and Orders Future Appointments and Orders Future Appointments Provider Department Dept Phone 07/29/2023 11:00 AM Magdalena Peralta MD Rheumatology at [facility] Arrive at: [place] [address] [phone] 02/11/2024 2:00 PM Marek Bonilla MD Dermatology at [place] Arrive at: [facility] [address] [phone] Future Orders Complete By Expires Type and Screen Future Surgery, [facility] SAME DAY PROGRAM ONLY) [EOT0706 Custom] 05/11/2023 Process Instructions: This test is intended ONLY for patients with upcoming surgery for testing prior to the day of surgery obtained through the same day program (4V or SDP). For ALL OTHER PATIENTS, order a Type and Screen (ZCE687) This order includes the physician order for an ABO Recheck if requested by the Blood Bank. Scheduling Instructions: Comments: Questions: Date of surgery: CBC (with Diff) [ITV998 Custom] 06/05/2023 12/05/2023 Process Instructions: INCLUDES: WBC, RBC, Hgb, Hct, Platelets, RBC Indices and Differential Scheduling Instructions: Comments: Questions: Comprehensive metabolic panel (non-fasting) [LAB17 Custom] 06/05/2023 08/20/2023 Process Instructions: INCLUDES: Calcium, T Protein, Albumin, AST, ALT, Alk Phos, T Bili, BUN, Creat, GFR, Glucose, Lytes. Scheduling Instructions: Comments: Questions: Echocardiogram Transthoracic [21126 CPT(R)] 06/05/2023 12/05/2023 Process Instructions: Scheduling Instructions: Questions: Where will study be performed?: [facility] Clinics Does the patient have Congenital Heart Disease?: Does patient require sedation?: GA rationale: EKG 12 Lead [11635 CPT(R)] 06/05/2023 12/05/2023 Process Instructions: Scheduling Instructions: Questions: Which location will this be performed?: [place] Is a rhythm strip needed?: No [facility] Devices [EQ161 Custom] As directed Process Instructions: Scheduling Instructions: Questions: Device Needed: WALKER (E0143) Patient Height (cm): 154.9 cm (5' 0.98) Patient Weight: 75.4 kg (166 lb 3.2 oz) Diagnosis: Unsteady gait when walking Referral to Cardiac Rehab [HXQ765 Custom] As directed Process Instructions: If no progress note charted, please enter Clinical details in comments. Scheduling Instructions: Questions: My question or request is: s/p TAVR. Cardiac rehab at [facility]. Referral to Home Health [REF34 Custom] As directed Process Instructions: If no progress note charted, please enter Clinical details in comments. Scheduling Instructions: Comments: DOCUMENTATION FOR VNA SERVICES PATIENT'S LOCATION: Purnima Thacker [address] [place] [phone] (home) Rn Interventional's Name: Irineo and brother Raymond In discussion with the attending physician, it is certified that this patient is under his/her careand that MD, or an ONLINE MARKETER, MILKING WORKER, or PA who is working directly with him/her, had a hzhf-rr-gyth encounter that meets the physician xxxs-mf-xnla encounter requirements with this patient on 05/22/2023. [...] for managing ADLs. HOME HEALTH CARE AGENCY: [facility]. [address] [facility] [address] PHONE: [phone] FAX: [phone] Start of care: Ideally 24-48 hours after [...] Magdalena Acosta MD [address] / [facility] [phone] All VNA agencies which cover the area of patient's residence have been reviewed, either verbally joao writing, and patient has chosen the home health care agency noted. Questions: Disciplines Requested: Physical Therapy Occupational Therapy Discharge References/Attachments None Arrangements for VNA/home care: As above. (delete if no VNA) Signed: EKATERINA NAVARRETE [facility] Section of Cardiac Surgery Date: 05/22/2023 CC: Magdalena Acosta MD WallsMario Alberto maxwell MD [address] [place] [address] documented in this encounter Discharge Instructions * Patient Instructions* Vinod Juárez PA - 05/22/2023 9:32 AM EDT TAVR Discharge Instructions: Call your doctor if: You have a fever of greater than 101 degrees, shaking chills, if you develop redness or drainage from your procedure sites, or if you have questions. Please call your Raw Juice Weigher's office if you have any discharge or drainage from your procedural sites. Your Raw Juice Weigher, Dr. Antelmo Sharma and/or the Clarity Developer may be reached at . Antibiotic prophylaxis: [...] friends, go to a movie, go to religion, etc. Heavy activities: No hunting, skiing, jogging, [...] pain, warmth or drainage. Please call your title agent's office if you have any discharge or drainage from your procedural sites. If there is a lot of swelling, apply mamta wraps during the day and remove at bedtime. Elevate your legs when you are sitting. Home oxygen therapy: N/A Follow up appointments: Please schedule a follow-up appointment with your PCP, Magdalena Acosta MD, or Primary Specimen Accessioner in ~ 7-10 days. You have a follow-up appointment with your Raw Juice Weigher, Dr. Antelmo Sharma, in 2 weeks with an EKG, Echo, and labs prior to your appointment. You will need follow-up with Nephrology, their office will arrange. Ozbj-Gfchtv-gq interval: After initial 30 day follow-up appointment , all TAVR patients will follow-up again in one year with an echo. Cardiac Rehabilitation: Purnima Gallegol was seen today regarding participation in the outpatient Phase 2 Cardiac Rehabilitation at [facility]. The patient agrees to a referral [...] ins ( tef) Haven Ba, PT Pager: [phone] Physical Therapy Inpatient Rehabilitation Department * Nico [...] PCP resume as outpatient. Oxy prn #Oliguric VEANS - resolved Secondary to cardiogenic shock and [...] 0600 and on the weekends please page [phone]. * Jory Paniagua - 05/20/2023 3:52 PM [...] vomiting Last Bowel Movement: 05/20/23 Jory Paniagua Musical Instrument Maker * Tong Mike, OT - 05/20/2023 3:16 [...] Tube Placement Right 05/18/2023 Laure Ricks PA [facility] RAD PRG CATH PLMT LEFT HEART CATH & ARTS W/INJ & ANGIO IMG S&I N/A 11/09/2022 CORONARY ANGIOGRAPHY; W [facility],POSSIBLE PCI (WRVU 5.6) performed by Mario Alberto Escobedo MD at [facility] CATH LABS PRG COMBINED RIGHT & LEFT HEART CATH W/INJ L VENTRICULOGRAPHY, IMG S&I N/A 05/12/2023 COMBINED RIGHT & LEFT HEART CATH,INC INJ FOR L VENTRICULOGRAPHY (WRVU 5.99) performed by Antelmo Sharma MD at [facility] CATH LABS PRO AORTOPLAS FOR SUPRAVALV STEN N/A 09/21/2016 @AORTOPLASTY FOR SUPRAVALVULAR STENOSIS (WRVU 29.33) performed by Alirio Hudson MD at [facility] MAIN OR PRO REPLACE AORTIC VALVE (TAVR/FEDERICO)PERC FEMORAL ARTERY APPROACH 05/12/2023 @TRANSCATHETER AORTIC VALVE REPLACEMENT (TAVR), PERCUTANEOUS FEMORAL (WRVU 22.47) performed by Alirio Hudson MD at [facility] CATH LABS PRO REPLACEMENT PROSTHETIC AORTIC VALVE OPEN W CARDIOPULMONARY BYPASS HOMOGRF/STENT N/A 09/21/2016 @REPLACE AORTIC VALVE, OPEN, W\CPB, W\PROSTHETIC VALVE (WRVU 41.32) performed by Alirio Hudson MD at [facility] MAIN OR Social History: Patient lives alone. Home Setup: Pt lives on one level with tub shower and three steps to enter. DME: none used MARBLE [employer]ER Baseline ADL/Mobility: Independent with ADLs and IADLs. [...] awareness: WFL Vision & Perception: corrective lenses coordinate measuring equipment operator Communication: WFL Range of motion, strength, coordination: [...] Discharge Disposition (OT): swing bed rehabilitation facility, prison facility(vs home with support for IADLs) Other [...] Discharge planning. Total Minutes, Occupational Therapy: 28 ([id number]) OT Evaluation Code Rationale: Diagnosis & Pertinent Co-Morbidities affecting Plan of Care: see PMHx Occupational Profile & Client History: Brief Expanded Extensive x Assessment of Occupational Performance: 1-3 performance deficits 3-5 performance deficits x 5 + performance deficits Clinical Decision Making: Low Moderate High x Clinical decision making of moderate complexity using standardized patient assessment instrument and measurable assessment of functional outcome. Pager: [phone] TONG MIKE OT 05/20/2023 Occupational Therapy Rehabilitation [...] 0600 and on the weekends please page [phone]. * Rylie Rodriguez MD - 05/19/2023 3:59 [...] and plan. Cynthia Blackburn MD Nephrology Pager: [phone] * Diana Espino - 05/19/2023 1:49 PM EDT Gunnery/Ordnance Officer Encounter Note Patient Name: Purnima Thacker : [id number] MR#: [id number] Admit Date: 05/08/2023 9:14 AM Hospital Day [...] returning home alone. Anticipated Discharge Disposition (PT): prison facility, swing bed rehabilitation facility Consult Recommendations: [...] as stated. Total Minutes, Physical Therapy: 38 (1554-0949) Henrik Navarrete PTA Pager: [phone] Physical Therapy Inpatient Rehabilitation Department * Nico [...] 0600 and on the weekends please page [phone]. * Laure Ricks PA - 05/19/2023 7:56 [...] Ricks PA-C Interventional Radiology IR Team Pager [phone] * Consuelo Espinoza RN - 05/18/2023 4:13 PM EDT ANGIO NURSING DATABASE Name: Purnima Thacker Date of : 1955 AGE: 67 y.o. Address: [address] [place] [address] (home) Mobile: No relevant phone numbers on [...] fraction I35.0 Mild coronary artery disease by [facility] 11/09/2022 I25.10 Heart failure with reduced [...] and plan. Cynthia Blackburn MD Nephrology Pager: [phone] * Magdalena Puri, TRANSITION NURSE - 05/18/2023 10:51 AM EDT Images from the original note were not included. [facility] [place] [address] [address] STRUCTURAL HEART DISEASE CONSULTATION NOTE PRIMARY CARE [...] stenosis. She is now status post TAVR Nfkpe-fy-Zqvcr with a 23 mm Lai 3 THV 05/12/[address] Sharma. Preliminary findings: Successful right transfemoral TAVR Jlbrw-mj-Vpjjr with a 23 mm Lai 3 THV. [...] ejection fraction Mild coronary artery disease by [facility] 11/09/2022 Heart failure with reduced ejection [...] tablet 40 mg 40 mg Oral Daily [place] APRN 40 mg at 05/18/23 0826 Or pantoprazole (Protonix) injection 40 mg 40 mg Intravenous Daily [place] APRN 40 mg at 05/12/23 1004 [...] mL 0.5 mL Intramuscular Prior to discharge [place] APRN FAMILY HISTORY: No family history [...] stenosis. She is now status post TAVR Hnone-cl-Xbyhn with a 23 mm Lai 3 THV [...] Magdalena Puri APRN Structural Heart Team Pager [phone] Team Office Please see addendum by Dr. Sharma for final plan and recommendations Associated attestation - Antelmo Sharma MD - 05/19/2023 10:52 PM EDT I have reviewed Magdalena Puri APRN's above history and I agree with the details as written. The assessment and plan were formulated in discussion with me and I agree with them as documented. Antelmo Sharma MD Pager [phone] * Nico Palacios PA - 05/18/2023 8:13 [...] 0600 and on the weekends please page [phone]. * Loli Hernandez, PT - 05/17/2023 5:27 [...] returning home alone. Anticipated Discharge Disposition (PT): prison facility, swing bed rehabilitation facility Consult Recommendations: [...] plan as stated. Time IN / OUT: 1998-7936 Total Minutes, Physical Therapy: 54 Billing Code: te-sx2, te-f, angely HERNANDEZ PT Pager: [phone] Physical Therapy Inpatient Rehabilitation Department * Cynthia [...] Well controlled. Cynthia Blackburn MD Nephrology Pager: [phone] * Mara Serrano, TRANSITION NURSE - 05/17/2023 8:26 AM EDT Cardiac Surgery [...] surgeon on rounds this morning. MARA SERRANO, ANURGA 05/17/2023 Between the hours of 1800 - 0600 and on the weekends please page [phone]. * Guerda Del Valle C - 05/16/2023 10:44 AM EDT Nutrition Services Note - Low Nutrition Acuity Purnima Thacker is a 67 y.o. female Reason for intervention: hospital day 9 Nutrition Plan: Continue diet order Encourage good PO Lasix and Zofran noted Added special serve: open containers Monitor weight Patient scheduled for a hospital day 9 nutrition evaluation. Lead Slot Technician met with pt at bedside. Pt reports that her appetite and PO has much improved since admission. Denies nausea/vomiting or trouble chewing/swallowing. Lead Slot Technician provided snack list but pt not interested in adding snacks at this time. Her only concern was that she is worried that she will eat too much which will cause too much pressure in her stomach. Lead Slot Technician assured pt and suggested eating smaller but [...] Last Bowel Movement: 05/10/23 Guerda Del Valle Musical Instrument Maker * Vinod Juárez PA - 05/16/2023 10:19 [...] 0600 and on the weekends please page [phone]. * Michael Jeffers MD - 05/16/2023 8:11 AM EDT Images from the original note were not included. Hypertension-Nephrology Inpatient Follow-up Purnima Thacker [id number] 1955 ID: 67 y.o. old female seen [...] IRONSAT 12 (L) 05/16/2023 SFOLATE >20.0 07/03/2022 [id number] 07/03/2022 Lab Results Component Value Date [...] Dr. Ayoub. Please contact me at phone: [phone] or pager: [phone] with any questions. Michael Jeffers MD Nephrology [...] -Nephrology consulted, labs and renal US ordered -Orem removed, ambulated around the unit -bilateral pleural [...] 0600 and on the weekends please page [phone]. * Hortencia Cody MD - 05/15/2023 2:07 [...] not included. Hypertension-Nephrology Inpatient Follow-up Purnima Thacker [id number] 1955 ID: 67 y.o. old female seen [...] HGB 7.8 (L) 05/13/2023 SFOLATE >20.0 07/03/2022 [id number] 07/03/2022 Lab Results Component Value Date [...] Dr. Ayoub. Please contact me at phone: [phone] or pager: [phone] with any questions. Michael Jeffers MD Nephrology [...] in chair atend of session with call mosnalve in reach. Vital Signs: SpO2: 97 % [...] outlined inthis evaluation. HAVEN BA, PT Pager: [phone] Physical Therapy Inpatient Rehabilitation Department Time IN / OUT: [phone] Total time: Total Minutes, Physical Therapy: 30 [...] 0600 and on the weekends please page [phone]. * Antelmo Sharma MD - 05/14/2023 7:56 AM EDT Images from the original note were not included. [facility] [place] [address] STRUCTURAL HEART DISEASE CONSULTATION NOTE PRIMARY CARE [...] stenosis. She is now status post TAVR Hddod-ud-Gtwun with a 23 mm Lai 3 THV 05/12/[address] Sharma. Preliminary findings: Successful right transfemoral TAVR Brfsh-ay-Cgigq with a 23 mm Lai 3 THV. [...] Events: - 05/12 Transferred to [facility] post- TAVR for pressor/inotropic support (Levo, vaso, [...] ejection fraction Mild coronary artery disease by [facility] 11/09/2022 Heart failure with reduced ejection [...] 0.9% infusion 10-30 mL/hr Intravenous Daily PRN oLrri Chinhcilla PA Stopped at 05/13/23 2000 sodium chloride [...] stenosis. She is now status post TAVR Kiswh-xw-Vhzgk with a 23 mm Lai 3 THV 05/12/[address] Sharma. Janet TAVR case notable for coronary LAD protective MINNA. Status post TAVR, the patient was transferred to [facility] for pressor and inotropic support. Pressors weaned overnight 05/12. Cardiac indices by thermodilution remained >3 with continued Milrinone 0.125 mcg/kg/min prior to PAC removal. EKG todayNSR with stable AL/QRS intervals. Hemoglobin slowly down-trending (8.2-> 7.8-> 7.2). [...] Brody Kaplan APRN Structural Heart Team Pager [phone] Team Office Please see addendum by Dr. [...] exposure. Nephrology consultationtoday. Antelmo Sharma MD Pager [phone] * Antelmo Cardenas RN - 05/14/2023 5:18 AM EDT Pt AOx4, complaining of mild/moderate generalized pain (states her Meloxicam is effective at home) currently refusing prn oxycodone. NAEON, hemodynamically stable on Milrinone, Maps >65, ST in ovs860's down to NSR with frequent multifocal PVC's. [...] note were not included. [facility] [place] [address] [address] STRUCTURAL HEART DISEASE PROGRESS NOTE PRIMARY CARE [...] stenosis. She is now status post TAVR Mzehg-rn-Drsms with a 23 mm Lai 3 THV 05/12/[address] Sharma. Preliminary findings: Successful right transfemoral TAVR Otklc-gw-Wrwys with a 23 mm Lai 3 THV. [...] ejection fraction Mild coronary artery disease by [facility] 11/09/2022 Heart failure with reduced ejection [...] stenosis. She is now status post TAVR Saucu-qv-Wvytd with a 23 mm Lai 3 THV 05/12/[address] Sharma. Janet TAVR case notable for coronary LAD protective MINNA. Status post TAVR, the patient was transferred to [facility] for pressor and inotropic support. Pressors weaned overnight. Cardiac indices by thermodilution remain greater than 3 with continued Milrinone 0.125 mcg/kg/min. EKG today NSR with stable AL/QRS intervals. Hemoglobin 7.8 today from 8.5, likely [...] Brody Kaplan APRN Structural Heart Team Pager [phone] Team Office Please see addendum by Dr. [...] DAPT moving forward. Antelmo Sharma MD Pager [phone] * Bonita Miguel PA - 05/13/2023 8:30 AM EDT Cardiac Surgery Progress Note Purnima Thacker is a 67 y.o. 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 PMH of s/p tissue AVR (2017), mixed connective tissue disease HTN, HLD, NICOLAS, diverticulosis, rosacea, essential tremor, and depression. 24h Events: From orthodontic lab technician for above procedure Extubated at ~1600 [...] soft b/l, no evidence of hematoma. Tubes/Lines/Drains: Orem, RIJ, A-line, Art, PIV Assessment/Plan: 67 y.o. [...] 0600 and on the weekends please page [phone]. * Onelia Schwartz MD - 05/12/2023 1:44 [...] ejection fraction Mild coronary artery disease by [facility] 11/09/2022 Heart failure with reduced ejection [...] FiO2 weaned to 40%. 1105: ABG 7.34/42/73/22 5191-4503: SBT performed and passed on these settings [...] PCP: Magdalena Acosta MD PCP phone number: [phone] Date of Admission: 05/08/2023 ( Hospital Day [...] 1447 PHART -- 7.34* 7.34* -- -- DPU1VGC -- 30* 30* -- -- PO2ART -- 72* 81* -- -- TZI8OCW -- 16.0* 15.7* -- -- LACTATEVEN 2.4* 2.7* 2.7* 4.8* 2.9* VBG (Venous Blood Gas) Recent Labs 05/12/23 0700 05/12/238 05/12/2310505/11/23193905/11/23 144 LACTATEVEN 2.4* 2.7* 2.7* 4.8* 2.9* Mixed Venous Sat Recent Labs 05/12/23 0508 05/12/23 0321 05/12/23 0114 05/12/23 0030 [id number] 30.7 32.7 37.3 25.1 Objective: Vitals Last [...] questions please contact the health personal care aide that requested your imaging first. Electronically signed by: ALIX RUVALCABA MD, [facility] ([phone]), at 05/10/2023 1:[address] Cardiac for [...] questions please contact the health personal care aide that requested your imaging first. Electronically signed by: Cullen Narayanan MD, [facility] ([phone]), at 05/11/2023 4:[address] Angiogram Abdomen [...] questions please contact the health personal care aide that requested your imaging first. Chest One [...] questions please contact the health personal care aide that requested your imaging first. Chest One [...] questions please contact the health personal care aide that requested your imaging first. Assessment & [...] and inotrope. She is planned for a pucvz-cy-yqfja TAVR this morning, which should hopefully improve [...] MD, FACP, FACC Section of Cardiovascular Medicine [facility] [employer] Workerpackage checker [facility] [...] ejection fraction Mild coronary artery disease by [facility] 11/09/2022 Heart failure with reduced ejection [...] 05/11/2023 4:11 PM EDT Reported off to SLURRY CONTROL OPERATOR HELPER and pt transferred over in the bed for higher level of care. * Antelmo Sharma MD - 05/11/2023 9:45 AM EDT Images from the original note were not included. [facility] [place] [address] [address] STRUCTURAL HEART DISEASE CONSULTATION NOTE PRIMARY CARE [...] who had been referred for possible TAVR rnkzc-nv-muipq evaluation. Her primary symptoms are of dyspnea [...] otherwise negative. Ms. Thacker is originally from [place]. 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 She states [...] ejection fraction Mild coronary artery disease by [facility] 11/09/2022 Heart failure with reduced ejection [...] hour(s)) Lactate, whole blood, send to lab ([facility]) Result Value Ref Range Lactate WB 3.1 (H) 0.5 - 2.2 mmol/L Heparin (unfractionated) Level Result Value Ref Range Heparin UFH Level 0.46 IU/mL Lactate, whole blood, send to lab ([facility]) Result Value Ref Range Lactate WB 1.8 [...] leads Confirmed by MD Harshil, Enrique Bell ([id number]) on 05/10/2023 8:11:46 AM Cardiac Cath 11/09/2022 [...] alert Dr. Hudson of her inpatient status, [facility]. Based on recent clinic [...] HFrEF, she was transferred to [facility] this afternoon for further management. TAVR CT imaging support for adequate ileofemoral access. Given her acute deterioration today, will planfor RTF TAVR on 05/12/2023. Brody Kaplan APRN Structural Heart Disease Pager [phone] Please see addendum by Dr. Sharma for [...] signed and dated. Antelmo Sharma MD Pager [phone] * Harini Lance MD - 05/11/2023 6:06 AM EDT Images from the original note were not included. Cardiology Progress Note Patient info: Name: Purnima Thacker : 1955 PCP: Magdalena Acosta MD PCP phone number: [phone] Date of Admission: 05/08/2023 ( Hospital Day [...] questions please contact the health personal care aide that requested your imaging first. 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, 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) Mild coronary artery disease by [facility] 11/09/2022 Hyperlipidemia, unspecified NICOLAS (obstructive sleep [...] PCP: Magdalena Acosta MD PCP phone number: [phone] Date of Admission: 05/08/2023 ( Hospital Day [...] 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) Mild coronary artery disease by [facility] 11/09/2022 Hyperlipidemia, unspecified NICOLAS (obstructive sleep [...] PCP: Magdalena Acosta MD PCP phone number: [phone] Date of Admission: 05/08/2023 ( Hospital Day [...] Gas) No results found for: PHART, PO2ART, WEB9ZUR, YZQ6ATQ Microbiology: Microbiology Results (Last 30 days) No [...] PPx: Diet: Daily Healthy Menu Choices/Cardiac diet ([facility]-Diet) Lines: Peripheral IV Line - Single Lumen [...] 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) Mild coronary artery disease by [facility] 11/09/2022 Hyperlipidemia, unspecified NICOLAS (obstructive sleep [...] fraction I35.0 Mild coronary artery disease by [facility] 11/09/2022 I25.10 Heart failure with reduced ejection fraction due to heart valve disease I50.20, I38 Cardiogenic shock R57.0 S/P TAVR (transcatheter aortic valve replacement) Z95.2 Past Medical History: Diagnosis Date Anemia Past Surgical History: Procedure Laterality Date PRG CATH PLFL LEFT HEART CATH & ARTS W/INJ & ANGIO IMG S&I N/A 11/09/2022 CORONARY ANGIOGRAPHY; W [facility],POSSIBLE PCI (WRVU 5.6) performed by Mario Alberto Escobedo MD at [facility] CATH LABS PRO AORTOPLAS FOR SUPRAVALV STEN N/A 09/21/2016 @AORTOPLASTY FOR SUPRAVALVULAR STENOSIS (WRVU 29.33) performed by Alirio Hudson MD at [facility] MAIN OR PRO REPLACEMENT PROSTHETIC AORTIC VALVE OPEN W CARDIOPULMONARY BYPASS HOMOGRF/STENT N/A 09/21/2016 @REPLACE AORTIC VALVE, OPEN, W\CPB, W\PROSTHETIC VALVE (WRVU 41.32) performed by Alirio Hudson MD at [facility] MAIN OR Social History and Habits: Social [...] fraction I35.0 Mild coronary artery disease by [facility] 11/09/2022 I25.10 Heart failure with reduced ejection fraction due to heart valve disease I50.20, I38 Cardiogenic shock R57.0 S/P TAVR (transcatheter aortic valve replacement) Z95.2 Past Medical History: Diagnosis Date Anemia Past Surgical History: Procedure Laterality Date PRG CATH PLFL LEFT HEART CATH & ARTS W/INJ & ANGIO IMG S&I N/A 11/09/2022 CORONARY ANGIOGRAPHY; W [facility],POSSIBLE PCI (WRVU 5.6) performed by Mario Alberto Escobedo MD at [facility] CATH LABS PRO AORTOPLAS FOR SUPRAVALV STEN N/A 09/21/2016 @AORTOPLASTY FOR SUPRAVALVULAR STENOSIS (WRVU 29.33) performed by Alirio Hudson MD at [facility] MAIN OR PRO REPLACEMENT PROSTHETIC AORTIC VALVE OPEN W CARDIOPULMONARY BYPASS HOMOGRF/STENT N/A 09/21/2016 @REPLACE AORTIC VALVE, OPEN, W\CPB, W\PROSTHETIC VALVE (WRVU 41.32) performed by Alirio Hudson MD at [facility] MAIN OR Social History and Habits: Social [...] days, which prompted her to present to [facility]. She also endorses some intermittent retrosternal chest pain with exertion.She endorses some dizziness with exertion, but has not gotten faint or passed out. At [facility] she was noted to be afebrile, blood pressure 105/64, HR 120s, satting 95% on 2L NC. Labs from [facility] are below, of note she had [...] 89/59, which prompted the transfer to us. [facility] labs: CBC - Hgb 10.5 CMP - Cr 1.1 BNP 32063 HsTrop 1358 Lactate 1.6 D-dimer 1183 Interval History Patient was admitted to [facility] due to concern on low BP iso [...] Klaudia Reid MD Internal Medicine PGY-1 Pager [phone], M1-S1 Service Associated attestation - Juan Luis Gonzalez MD - 05/08/2023 10:00 PM EDT Cardiology Attending Addendum Active Hospital Problems Diagnosis Symptomatic severe aortic stenosis with low ejection fraction Heart failure with reduced ejection fraction due to heart valve disease Mild coronary artery disease by [facility] 11/09/2022 Hyperlipidemia, unspecified History of aortic [...] PCP: Magdalena Acosta MD PCP phone number: [phone] Date of Admission: 05/08/2023 ( Hospital Day 0 days ) Attending:Enrique Chua MD ID: Purnima Thacker is a 67 y.o. female w/ PMH of s/p bioprosthetic AVR in 2016 with recent concern for severe restenosis, HTN, HLD, mixed connective tissue disease, who presents in transfer from [facility] with worsening BONILLA and weight gain concerning for acute congestive heart failure and symptomatic . HPI: Prunima reports that over the past several months to years she has noticed dyspnea on exertion, progressing to the point where she cannot walk short distances on flat ground to her mailbox without getting significantly short of breath. This has acutely worsened in the past four days, which promptedher to present to [facility]. She also endorses some intermittent retrosternal chest pain with exertion. She endorses some dizziness with exertion, but has not gotten faint or passed out. At [facility] she was noted to be afebrile, blood pressure 105/64, HR 120s, satting 95% on 2L NC. Labs from [facility] are below, of note she had [...] 89/59, which prompted the transfer to us. [facility] labs: CBC - Hgb 10.5 CMP - Cr 1.1 BNP 13720 HsTrop 1358 Lactate 1.6 D-dimer 1183 Vasoactive [...] tissue disease, who [facility] BONILLA and weight gain concerning [...] #Routine Diet: Daily Healthy Menu Choices/Cardiac diet ([facility]-Diet) DVT Prophylaxis: heparin gtt GI Prophylaxis: none [...] to the planned procedure. Hand Hygiene: The hat trimmer did perform hand hygiene prior to arterial [...] Successful arterial line placement. Crispin Timmons MD Clarity Developer Associated attestation - Onelia Schwartz MD - [...] (flow was non-pulsatile) and appearance of blood. Orem-Marily catheter was placed and locked at 55 [...] information for follow-up [facility], [place] [address] [place] [address] Cardiac Rehab, [place] [address] [facility] [place] [address] [facility], [place] [address] [place] [address] Transportation: family or friend will provide *Brother [...] Type: *No Product type* / Secondary Insurance: [employer] [place] Prescription Coverage: Yes This plan was formulated with input from patient, family (please identify family/friend involved ifapplicable) and team. All are in agreement with plan. Aliza Martino MSN-Ed, RN ACM pharmaceutical analyst Office of Care Management Pager #[phone] * Plan of Care - Favian Mckeon [...] Lana Chaudhary RN - 05/21/2023 4:46 PM [facility]TS[facility]: [place] [facility] referral OFFICE OF CARE MANAGEMENT [...] Type: *No Product type* / Secondary Insurance: [employer] [facility] [place] Last Physical Therapy Recommendation: (Home with assist from Brother; Friend arriving Tues) with walker, front wheeled Last Occupational Therapy Recommendation: swing bed rehabilitation facility, prison facility (vs home with support for IADLs) with walker, front wheeled, shower chair Plan for discharge is: Home w/ Services Outpatient Agency/Support Group Needs: Homecare agency Home Health Services: Physical Therapy, Occupational Therapy Agency Referrals: I have met with the patient to: discuss discharge planning needs. describing our affiliations within the [facility] and educate about their right to choose where referrals are sent. provide a list of Home Health Agencies / Durable Medical Equipment vendors which serve their preferred geographic area. They have requested referrals to: [facility] [address] [place] [address] [facility] [place], [place] Note routed to a Trimmer Machine Operator who will communicate referrals to facilities and provide any required information. Transportation: family or friend will provide *Brother Raymond on Tuesday 05/22 at 1000 Barriers to discharge: Does not have home 22/02 assist available until tomorrow Tuesday 05/22 Plan going forward: Discharge home into the 22/02 home care of brother Raymond with [facility] and [place] [facility] PT/OT services on Tuesday 05/22 [...] Attending: All Staff: Staff Role Juanita Almaguer Clinical Athletic Instructor Laure Ricks PA Physician Global Marketing Operations Manager Magdalena Rodriguez RN Radiology Nurse Consuelo Espinoza bed manager Nurse Post-operative diagnosis/Indication: Right pleural effusion [...] Type: *No Product type* / Secondary Insurance: [employer] [facility] [place] Last Physical Therapy Recommendation: prison facility, swing bed rehabilitation facility with to be determined Last Occupational Therapy Recommendation: with Plan for discharge is: Long-Term Facility / Swing Outpatient Agency/Support Group Needs: None Agency Referrals: Based on discussions with the multi-disciplinary healthcare team, the patient would benefit from SNF / Swing level of care at discharge. I have met with the patient to: discuss discharge planning needs. provide the [facility], Office of Care Management letter from the Bed Teacher pertaining to rehab referrals. provide a letter describing our affiliations within the [facility] and educate about their right to choose where referrals are sent. provide the CMS Star Quality Rating handout. review the different levels of rehab including SNF, swing, and acute. provide a list of facilities within their preferred geographic area. request that they provide at least three choices for referral. They have requested referrals to: [facility] [address] [place] [address] [facility] ([facility]) [address] [place] [address] (Accepts pts only after exhausting all other local SNF options) [facility] (Swing) ([facility]) [address] [place] [address] PHONE: [phone] FAX: [phone] [facility] ([facility]) [facility]) [address] [place] [address] PHONE: [phone] FAX: [phone] Note routed to a Trimmer Machine Operator who will communicate referrals to [...] Crenshaw RN - 05/17/2023 10:25 AM EDT [facility] CARDIAC REHABILITATION Purnima Thacker was seen today regarding participation in the outpatient Phase 2 Cardiac Rehabilitation at [facility]. The patient agrees to a referral [...] from the original note were not included. [facility] NEPHROLOGY/HYPERTENSION CONSULT NOTE PATIENT: Purnima Thacker [...] in her course. She ultimately underwent a oicrn-jt-jrnvo procedure on and tolerated it well (see operative details). [facility] on some [...] 1423 05/12/23 1105 PHART 7.39 7.37 7.34* YFU5LIZ 33* 36 42 PO2ART 101 102 73* WYV2YGN 19.5* 20.4 22.1 LACTATEVEN 1.5 1.8 2.8* WQQ2ANJ 40 40 40 PFRATIOART2 252 255 182 VBG (Venous Blood Gas) Recent Labs 05/12/23 1557 05/12/23 1423 05/12/23 1105 LACTATEVEN 1.5 1.8 2.8* Mixed Venous Sat Recent Labs 05/12/23 1425 05/12/23 0508 05/12/23 0321 [id number] 59.9 30.7 32.7 LFT's: Recent Labs 05/14/23 0110 05/13/23 0115 05/12/23 0600 BILITOT 0.4 0.5 0.9 BILIDIR -- 0.3 -- ALBUMIN 3.6 3.0* 3.5 ALKPHOS 86 85 100 ALT 437* 903* 1,174* AST 319* 792* 1,435* No results found for: UPROTCREAT No results found for: TPROTEINPEP, ALBELECT No results found for: MICROALBUR, SNOG70RVS No results found for: HA1C Lab Results Component Value Date CALCIUM 8.5 05/14/2023 PHOS 4.7 (H) 05/08/2023 No results found for: 25OHVITD MICROBIOLOGY: ProcedureComponentValueUnitsDate/TimeUrine culture [[id number]]Collected: 05/11/231921Lab Status: Final resultSpecimen: Clean Catch UrineUpdated: [...] for assessment if this patient needs MOLD BREAKER. Atthis time, we can likely hold off on MOLD BREAKER. Her volume status appears sufficient and her metabolic kanwal angements with mild acidosis is not too profound. Patient does not have significant uremic symptoms. We can hold off for today, but the patient is a high risk candidate for needing MOLD BREAKER in future daysespecially if her Cr curve trends the direction it is for the next several days. S/p Uozjf-if-Ghrik TF TAVR: Management per cardiology. On milrinone gtt. PLAN: - Please obtain following diagnostics: renal US, urinalysis, urine prot/Cr ratio, urine albumin/Cr ratio, CK, uric acid, serum osmol, daily VBGs - No acute indications for MOLD BREAKER/dialysis. We will keep close eye on Cr trend, volume status, and metabolics to ensure patient still does not need MOLD BREAKER as she ensues intrinsic renal recovery - [...] M.H.Katherine., M.A. PGY-V Nephrology-Hypertension Fellow Page # [phone] [facility] [address] 2nd floor, [place] [address] [place] [address] * Care Management - Mario Alberto Olmos [...] / Secondary Insurance: [facility] Plan for discharge is: Home [...] TAVR at 730. Returned to [facility] at 0945. Was intubated in the orthodontic lab technician due to agitation. Maintained bedrest for [...] Operative Note Patient Name: Purnima Thacker : [id number] MR#: [id number] Case Date: 05/12/2023 Surgeon: Surgeon(s) and Role: [...] procedure Note: Patient Name: Purnima Thacker : [id number] MR#: [id number] Case Date: 05/12/2023 Operators Surgeon: Surgeon(s) and [...] main with 4.0 x 30 mm Resolute Nichols Drug Eluting Stent Perclose x1 + Angio-seal 8 Fr x1, RFA Manual pressure, LFA Manual pressure, LFV Endotracheal intubation (performed by cardiac anesthesia) Preliminary findings: Successful right transfemoral TAVR Dmzmm-kl-Pwdnu with a 23 mm Lai 3 THV. [...] MD, M.Sc. Structural Heart Disease Fellow Pager :[phone] Antelmo Sharma MD Pager [phone] * Op Note - Alirio Hudson MD - 05/12/2023 7:37 AM EDT Preop Diagnosis: Severe aortic stenosis, symptomatic. Postop Diagnosis: Same. Procedure: Transfemoral TAVR procedure with 23mm valve. Surgeon: Alirio Hudson M.D. Specimen Accessioner: Danny CULP Procedure: The patient was taken to the orthodontic lab technician. The patient had monitored anesthesia care. 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 [facility] [place] [address] [place] [address] STRUCTURAL HEART DISEASE CONSULTATION NOTE PRIMARY CARE [...] who had been referred for possible TAVR gujut-zs-eavop evaluation. Her primary symptoms are of dyspnea [...] otherwise negative. Ms. Thacker is originally from [place]. 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 PROBLEM LIST: Patient Active Problem List Diagnosis Symptomatic severe aortic stenosis with low ejection fraction Mild coronary artery disease by [facility] 11/09/2022 Heart failure with reduced ejection [...] 3 mg 0.3 mL Subcutaneous Once PRN Klaudai Reid MD acetaminophen (Tylenol) tablet 650 mg [...] hour(s)) Lactate, whole blood, send to lab ([facility]) Result Value Ref Range Lactate WB 1.8 [...] leads Confirmed by MD Harshil, Enrique Bell ([id number]) on 05/10/2023 8:11:46 AM Assessment and Plan: [...] alert Dr. Hudson of her inpatient status, [facility]. Based on recent clinic [...] Antelmo Sharma MD Structural Heart Disease Pager [phone] * Plan of Care - Sarahi Nice RN - 05/10/2023 3:55 AM EDTSumavis: RN Note and Care Plan Sarahi Nice RN assumed care of pt at time of their arrival to room 362 from [facility]. Pt voices shortness of breath at time [...] VTE (Venous Thromboembolism) Risk Flowsheets (Taken 05/09/2023 3806) VTE Prevention/Management: anticoagulant therapy Intervention: Prevent Infection [...] listening utilized Taken 05/08/20231999 by Alivia Kauffman shingle weaver/Support System Care: self-care encouraged support provided Problem: [...] Transfer from another hospital Location: admitted from [facility] Reason for Hospitalization: Critical aortic stenosis, causing symptoms Past medical History: Past Medical History: Diagnosis Date Anemia Hospitalizations Within the Past 30 Days: no previous admission in last 30 days Current Decision-Making Capacity: Self If AD's have not been completed the following surrogate would be surrogate decision maker per [place] surrogate decision making law. (Only good for 180 days) Any patient receiving care in [place] must abide by [place] law. The hierarchy for surrogate decision making [...] (i) The agent with financial power of erisa attorney or a conservator appointed in accordance [...] none Home Address confirmed as: [address] [place] [place] [address] Social & Family Supports: All names listed [...] / Secondary Insurance: [facility] ONLY if patient has Medicare A&B - Does this patient have secondary insurance?: Yes ; Prescription Coverage: Yes Preferred Pharmacy: updated to [facility] in [facility] Status: Patient is a : No Primary Care Provider confirmed: Magdalena Acosta MD [phone] Patient/Caregiver Goals of Treatment: Potential Needs for [...] transition of care planning. Alie Bradshaw RN, Pager-[phone] * Plan of Care - Emily Lucero RN - 05/08/2023 2:54 PM EDT OUTCOME EVALUATION NOTE: OUTCOME SUMMARY: Pt arrived from [facility]. A&O, no c/o pain or SOB. [...] EDT Office Visit Dermatology at [place] [address] [place] [id number] Marek Bonilla MD [address] [facility] [address] [place] [address] Scheduled Referrals Name Type Priority Associated Diagnoses [...] Heart Cath W/Inj L Ventriculography, Img S&I ([id number]) 05/12/2023 7:37 AM EDT Aortic valve stenosis, [...] DOPP COLOR DOPP (07/08/2023 12:15 PM EST) [facility] EF 20 HEARTLAB SYSTEM Anatomical Region Laterality Modality Cardiac Other 07/08/2023 10:3 1 AM EST Narrative 07/08/2023 12:26 PM EST [address] [place] [address] ? Echocardiogram Report Name: PURNIMA THACKER ?Study Date: 07/08/2023 10:31 AMBP: 118/60 mmHg ? Patient Location: : 1955 ? Height: 155 cm ? Account: [id number] Age: 67 yrs ? Weight: 74 kg Gender: Female ?BSA: 1.7 m2 Ordering Physician: ALIRIO HUDSON Referring Physician: VINOD JUÁREZ Performed By: Felicia Norris RDCS Reason For Study: S/P TAVR Exam Location: [facility]. Interpretation Summary Left ventricular systolic function is [...] no significant change (post-procedure). Procedure Limited - 22119. Doppler - 85988. Color Doppler - 38694. Satisfactory quality. This study is limited because [...] Note Lee Kincaid MD - 07/08/2023 [address] [place] [address] Echocardiogram Report Name: KIRSTIE PURNIMA M Study Date: 310:31 AMBP: 118/60 mmHg Patient Location: : 1955 Height: 155 cm Account: [id number] Age: 67 yrs Weight: 74 kg Gender: Female BSA: 1.7 m2 Ordering Physician: ALIRIO HUDSON Referring Physician: VINOD JUÁREZ Performed By: Felicia Norris RDCS Reason For Study: S/P TAVR Exam Location: [facility]. Interpretation Summary Left ventricular systolic function is [...] is nosignificant change (post-procedure). Procedure Limited - 97774. Doppler - 97048. Color Doppler - 41002. Satisfactoryquality. This study is limited because of [...] cm/sec E/e' (med): 18.2 E/e' Average: 20.1 GEVOANNA(I,D): 1.4 cm2 Dimensionless index Aov: 0.39 I WMSI = 2.00 % Normal = 0 SegmentsSize X - Cannot 2 - 4 - 1-2small Interpret 1 - Normal Hypokinetic 3 - Akinetic Dyskinetic 3-5moderate 5 - 6-14large Aneurysmal 15-16diffuse Alirio Hudson MD ECHO ORDERABLES * (ABNORMAL) Comprehensive metabolic panel (non-fasting) (07/08/2023 11:56 AM EST) Glucose 93 65 - 199 mg/dL [facility] Comment:Diabetes: >=200 mg/d L plus symptoms Blood Urea Nitrogen 19(H) 8 - 18 mg/dL [facility] Creatinine 0.81 0.70 - 1.20 mg/dL [facility] Sodium 142 135 - 145 mmol/L [facility] Potassium 3.8 3.5 - 5.0 mmol/L [facility] Comment: Please note: ??Patients with WBC >100,000 may have falsely elevated Potassium levels. ??For accurate Potassium quantification in these patients send serum separator tube (gold top) for subsequent determinations. ??Contact the Clinical Chemistry Laboratory if there are any questions. Chloride 104 98 - 107 mmol/L [facility] Carbon Dioxide 26 22 - 31 mmol/L [facility] Anion Gap 12 5 - 15 mmol/L [facility] Calcium 10.2 8.5 - 10.5 mg/dL [facility] Protein, Total 7.4 6.1 - 8.0 g/dL [facility] Albumin 4.1 3.2 - 5.2 g/dL [facility] Aspartate Aminotransferase 24 0 - 30 unit/L [facility] Alanine Aminotransferase 12 0 - 30 unit/L [facility] Alkaline Phosphatase 93 35 - 105 unit/L [facility] Bilirubin, Total 0.3 0.2 - 1.3 mg/dL [facility] Est Glomerular Filtration Rate 80 >=60 mL/min/1. 73 m?? [facility] Comment: This patient's estimated GFR [...] Alirio Hudson MD CHEMISTRY ORDERABLE S [facility] [place] [address] * (ABNORMAL) Basic Metabolic Panel (non-fasting) (05/22/2023 3:57 AM EDT) Pathologist [facility] Glucose 88 65 - 199 mg/dL [facility] Comment:Diabetes: >=200 mg/d L plus symptoms Blood Urea Nitrogen 21(H) 8 - 18 mg/dL [facility] Creatinine 0.69(L) 0.70 - 1.20 mg/dL [facility] Sodium 136 135 - 145 mmol/L [facility] Potassium 3.6 3.5 - 5.0 mmol/L [facility] Comment: Please note: ??Patients with WBC >100,000 may have falsely elevated Potassium levels. ??For accurate Potassium quantification in these patients send serum separator tube (gold top) for subsequent determinations. ??Contact the Clinical Chemistry Laboratory if there are any questions. Chloride 102 98 - 107 mmol/L [facility] Carbon Dioxide 23 22 - 31 mmol/L [facility] Anion Gap 11 5 - 15 mmol/L [facility] Calcium 8.6 8.5 - 10.5 mg/dL [facility] Est Glomerular Filtration Rate 95 >=60 mL/min/1. 73 m?? [facility] Comment: This patient's estimated [...] Agency Comment Spec In Lab Mara Serrano TRANSITION NURSE CHEMISTRY ORDERABL ES [facility] [place] [address] * (ABNORMAL) Basic Metabolic Panel (non-fasting) (05/21/2023 5:06 AM EDT) Glucose 87 65 - 199 mg/dL [facility] Comment:Diabetes: >=200 mg/d L plus symptoms Blood Urea Nitrogen 25(H) 8 - 18 mg/dL [facility] Creatinine 0.84 0.70 - 1.20 mg/dL [facility] Sodium 136 135 - 145 mmol/L [facility] Potassium 3.6 3.5 - 5.0 mmol/L [facility] Comment: Please note: ??Patients with WBC >100,000 may have falsely elevated Potassium levels. ??For accurate Potassium quantification in these patients send serum separator tube (gold top) for subsequent determinations. ??Contact the Clinical Chemistry Laboratory if there are any questions. Chloride 102 98 - 107 mmol/L [facility] Carbon Dioxide 26 22 - 31 mmol/L [facility] Anion Gap 8 5 - 15 mmol/L [facility] Calcium 8.9 8.5 - 10.5 mg/dL [facility] Est Glomerular Filtration Rate 76 >=60 mL/min/1. 73 m?? [facility] Comment: This patient's estimated GFR [...] Narrative Resulting Agency Comment Spec In Lab [facility] TRANSITION NURSE CHEMISTRY ORDERABL ES Performing Organization Address [facility] Co de Phone Number [facility] [place] [address] * Lavender Tube HOLD (05/20/2023 2:52 AM EDT) Lavender Hold Sample in lab. [facility] Blood Venous Draw / Unknown 05/20/2023 2:52 AM EDT 05/20/2023 3:04 AM EDT Mara [place] TRANSITION NURSE HEMATOLOGY ORDERAB LES Performing Organization Address [facility] de Phone Number [facility] [place] [address] * (ABNORMAL) Basic Metabolic Panel (non-fasting) (05/20/2023 2:52 AM EDT) Glucose 152 65 - 199 mg/dL [facility] Comment:Diabetes: >=200 mg/d L plus symptoms Blood Urea Nitrogen 33(H) 8 - 18 mg/dL [facility] Creatinine 0.82 0.70 - 1.20 mg/dL [facility] Sodium 137 135 - 145 mmol/L [facility] Potassium 3.7 3.5 - 5.0 mmol/L [facility] Comment: Please note: ??Patients with WBC >100,000 may have falsely elevated Potassium levels. ??For accurate Potassium quantification in these patients send serum separator tube (gold top) for subsequent determinations. ??Contact the Clinical Chemistry Laboratory if there are any questions. Chloride 99 98 - 107 mmol/L [facility] Carbon Dioxide 22 22 - 31 mmol/L [facility] Anion Gap 16(H) 5 - 15 mmol/L [facility] Calcium 9.0 8.5 - 10.5 mg/dL [facility] Est Glomerular Filtration Rate 78 >=60 mL/min/1. 73 m?? [facility] Comment: This patient's estimated GFR [...] Agency Comment Spec In Lab Mara [place] TRANSITION NURSE CHEMISTRY ORDERABL ES Performing Organization Address [facility] Co de Phone Number [facility] [place] [address] * (ABNORMAL) Potassium (05/20/2023 2:52 AM EDT) [facility] Signature Potassium 3.4(L) 3.5 - 5.0 mmol/L [facility] Comment: Please note: ??Patients with WBC >100,000 may have falsely elevated Potassium levels. ??For accurate Potassium quantification in these patients send serum separator tube (gold top) for subsequent determinations. ??Contact the Clinical Chemistry Laboratory if there are any questions. Blood 05/20/2023 2:52 AM EDT 05/20/2023 3:03 AM EDT Narrative Resulting Agency Comment Spec In Lab Mara [place] TRANSITION NURSE CHEMISTRY ORDERABL ES Performing Organization Address City/[facility] Co de Phone Number [facility] [place] [address] * XR Chest PA & Lateral (Generic) [...] questions please contact the health personal care aide that requested your imaging first. ? Electronically signed by: Chyna Johnson MD, [facility] ??([phone]), at 05/19/2023 2:19 PM Narrative 05/19/2023 2:19 [...] have questions please contactthe health personal care aide that requested your imaging first. Alirio Hudson MD IMG DX ORDERABLES * (ABNORMAL) Basic Metabolic Panel (non-fasting) (05/19/2023 5:49 AM EDT) Glucose 93 65 - 199 mg/dL [facility] Comment:Diabetes: >=200 mg/d L plus symptoms Blood Urea Nitrogen 45(H) 8 - 18 mg/dL [facility] Creatinine 1.02 0.70 - 1.20 mg/dL [facility] Sodium 138 135 - 145 mmol/L [facility] Potassium 3.9 3.5 - 5.0 mmol/L [facility] Comment: Please note: ??Patients with WBC >100,000 may have falsely elevated Potassium levels. ??For accurate Potassium quantification in these patients send serum separator tube (gold top) for subsequent determinations. ??Contact the Clinical Chemistry Laboratory if there are any questions. Chloride 102 98 - 107 mmol/L [facility] Carbon Dioxide 26 22 - 31 mmol/L [facility] Anion Gap 10 5 - 15 mmol/L [facility] Calcium 9.7 8.5 - 10.5 mg/dL [facility] Est Glomerular Filtration Rate 60 >=60 mL/min/1. 73 m?? [facility] Comment: This patient's estimated [...] Agency Comment Spec In Lab Mara Serrano TRANSITION NURSE CHEMISTRY ORDERABL ES [facility] [place] [address] * IR Chest Tube Placement Right (05/18/2023 [...] Glucose 95 65 - 199 mg/dL [facility] Comment:Diabetes: >=200 mg/d L plus symptoms Blood Urea Nitrogen 71(H) 8 - 18 mg/dL [facility] Comment:result rechecked-[facility] Creatinine 1.64(H) 0.70 - 1.20 mg/dL [facility] Comment:result rechecked-[facility] Sodium 137 135 - 145 mmol/L [facility] Potassium 3.7 3.5 - 5.0 mmol/L [facility] Comment: Please note: ??Patients with WBC >100,000 may have falsely elevated Potassium levels. ??For accurate Potassium quantification in these patients send serum separator tube (gold top) for subsequent determinations. ??Contact the Clinical Chemistry Laboratory if there are any questions. Chloride 100 98 - 107 mmol/L [facility] Carbon Dioxide 24 22 - 31 mmol/L [facility] Anion Gap 13 5 - 15 mmol/L [facility] Calcium 9.7 8.5 - 10.5 mg/dL [facility] Est Glomerular Filtration Rate 34(L) >=60 mL/min/1. 73 m?? [facility] Comment: This patient's estimated GFR [...] Agency Comment Spec In Lab Mara Serrano TRANSITION NURSE CHEMISTRY ORDERABL ES [facility] [place] [address] * XR Chest PA & Lateral (Generic) [...] questions please contact the health personal care aide that requested your imaging first. [...] have questions please contactthe health personal care aide that requested your imaging first. Alirio Hudson MD IMG DX ORDERABLES * (ABNORMAL) Comprehensive metabolic panel (non-fasting) (05/17/2023 4:35 AM EDT) Glucose 89 65 - 199 mg/dL [facility] Comment:Diabetes: >=200 mg/d L plus symptoms Blood Urea Nitrogen 97(H) 8 - 18 mg/dL [facility] Creatinine 2.97(H) 0.70 - 1.20 mg/dL [facility] Comment:result rechecked-JSJc Sodium 135 135 - 145 mmol/L [facility] Potassium 4.1 3.5 - 5.0 mmol/L [facility] Comment: Please note: ??Patients with WBC >100,000 may have falsely elevated Potassium levels. ??For accurate Potassium quantification in these patients send serum separator tube (gold top) for subsequent determinations. ??Contact the Clinical Chemistry Laboratory if there are any questions. Chloride 97(L) 98 - 107 mmol/L [facility] Carbon Dioxide 22 22 - 31 mmol/L [facility] Anion Gap 16(H) 5 - 15 mmol/L [facility] Calcium 9.6 8.5 - 10.5 mg/dL [facility] Protein, Total 6.5 6.1 - 8.0 g/dL [facility] Albumin 3.7 3.2 - 5.2 g/dL [facility] Aspartate Aminotransferase 58(H) 0 - 30 unit/L [facility] Alanine Aminotransferase 66(H) 0 - 30 unit/L [facility] Alkaline Phosphatase 86 35 - 105 unit/L [facility] Bilirubin, Total 0.6 0.2 - 1.3 mg/dL [facility] Est Glomerular Filtration Rate 17(L) >=60 mL/min/1. 73 m?? [facility] Comment: This patient's estimated GFR [...] Alirio Hudson MD CHEMISTRY ORDERABLE S [facility] [place] [address] * Potassium (05/16/2023 11:15 PM EDT) Potassium 3.7 3.5 - 5.0 mmol/L [facility] Comment: Please note: ??Patients with [...] S Performing Organization Address [facility] Co de Phone Number [facility] [place] [address] * Magnesium (05/16/2023 5:22 PM EDT) Magnesium 0.96 0.69 - 1.07 mmol/L [facility] Blood 05/16/2023 5:22 PM EDT 05/16/2023 5:27 PM EDT Narrative Resulting Agency Comment Spec In Lab Alirio Hudson MD CHEMISTRY ORDERABLE S Performing Organization Address [facility] Co de Phone Number [facility] [place] [address] * (ABNORMAL) Basic Metabolic Panel (non-fasting) (05/16/2023 5:22 PM EDT) Glucose 106 65 - 199 mg/dL [facility] Comment:Diabetes: >=200 mg/d L plus symptoms Blood Urea Nitrogen 103(H) 8 - 18 mg/dL [facility] Creatinine 3.91(H) 0.70 - 1.20 mg/dL [facility] Comment:result rechecked-imm Sodium 132(L) 135 - 145 mmol/L [facility] Potassium 3.6 3.5 - 5.0 mmol/L [facility] Comment: Please note: ??Patients with WBC >100,000 may have falsely elevated Potassium levels. ??For accurate Potassium quantification in these patients send serum separator tube (gold top) for subsequent determinations. ??Contact the Clinical Chemistry Laboratory if there are any questions. Chloride 92(L) 98 - 107 mmol/L [facility] Carbon Dioxide 22 22 - 31 mmol/L [facility] Anion Gap 18(H) 5 - 15 mmol/L [facility] Calcium 9.7 8.5 - 10.5 mg/dL [facility] Est Glomerular Filtration Rate 12(L) >=60 mL/min/1. 73 m?? [facility] Comment: This patient's estimated GFR [...] Alirio Hudson MD CHEMISTRY ORDERABLE S [facility] [place] [address] * (ABNORMAL) Potassium (05/16/2023 11:43 AM EDT) [facility] Signature Potassium 3.3(L) 3.5 - 5.0 mmol/L [facility] Comment: Please note: ??Patients with [...] Alirio Hudson MD CHEMISTRY ORDERABLE S [facility] [place] [address] * (ABNORMAL) Ferritin (05/16/2023 4:41 AM EDT) Ferritin 1,813(H) 30 - 400 ng/mL [facility] Comment: Pediatric reference ranges not verified at [facility], interpret with caution. Reference ranges for females greater than 50 years of age approach values for men, i.e., 30-400 ng/mL. Blood 05/16/2023 4:41 AM EDT 05/16/2023 4:54 AM EDT Narrative Resulting Agency Comment Spec In Lab Kristopher Ayoub MD CHEMISTRY ORDERABLES [facility] [place] [address] * (ABNORMAL) PTH (05/16/2023 4:41 AM EDT) [facility] Parathyroid Hormone 120(H) 15 - 65 pg/mL [facility] Blood 05/16/2023 4:41 AM EDT 05/16/2023 4:54 AM EDT Narrative Resulting Agency Comment Spec In Lab Kristopher Ayoub MD CHEMISTRY ORDERABLES Performing Organization Address City/[facility]/ZIP Co de Phone Number [facility] [place] [address] * Vitamin D, 25-Hydroxy (05/16/2023 4:41 AM EDT) Pathologist [facility] Vitamin D Total 25 OH 33 21 - 100 ng/mL [facility] Vit D Interp Sufficient [facility] Blood 05/16/2023 4:41 AM EDT 05/16/2023 4:54 AM EDT Narrative Resulting Agency Comment Spec In Lab Kristopher Ayoub MD CHEMISTRY ORDERABLES [facility] [place] [address] * (ABNORMAL) Blood Gas Venous ([facility]) (05/16/2023 4:22 AM EDT) Pathologist [facility] pH, Venous 7.41 7.32 - 7.42 [facility] PCO2, Venous 32(L) 41 - 51 mmHg [facility] PO2, Venous 73(H) 25 - 40 mmHg [facility] Bicarbonate, Venous 19.6 mmol/L [facility] Base Excess, Venous -5.1 mmol/L [facility] Hgb Blood Gas 9.7(L) 11.7 - 15.5 g/dL [facility] Oxyhemoglobin, Venous 92.8 % [facility] Carboxyhemoglob in, Venous 0.1 % [facility] Comment: Nonsmokers: 0.5-1.5% COHB Smokers: Variable, but usually less than 10% Toxic: 20-30% COHB Lethal: Greater than 60% COHB Methemoglobin, Venous 0.3 <=1.5 % [facility] Na Whole Blood 130(L) 135 - 145 mmol/L [facility] K Whole Blood 3.7 3.5 - 5.0 mmol/L [facility] Comment: Please note: Patients with WBC >100,000 may have falsely elevated Potassium levels. Contact the Clinical Chemistry Laboratory if there are any questions. ICa Whole Blood 1.15 1.15 - 1.33 mmol/L [facility] Comment: Note: ??Total bilirubin higher than 20 mg/dL may lead to falsely low ionized calcium. CL Whole Blood 95(L) 98 - 107 mmol/L [facility] Gluc Whole Bld 82 65 - 199 mg/dL [facility] Comment:Diabetes: >=200 mg/d L plus symptoms Lactate WB 1.1 0.5 - 2.2 mmol/L [facility] Blood Gas Source Venous [facility] Blood Venous Draw / Unknown 05/16/2023 4:22 AM EDT 05/16/2023 4:31 AM EDT Narrative Resulting Agency Comment Spec In Lab Bonita TOBAR CHEMISTRY ORDERABLES [facility] [place] [address] * (ABNORMAL) Differential, Automated (05/16/2023 4:20 AM EDT) Neutrophil % 84.1 % [facility] Neutrophil Absolute 6.22(H) 1.70 - 6.10 x10(3)/mc L [facility] Lymph % 5.8 % [facility] Lymphocytes Abs 0.4(L) 0.9 - 3.2 x10(3)/mc L [facility] Monocyte % 8.8 % [facility] Monocyte Abs 0.6 0.3 - 0.9 x10(3)/mc L [facility] Eos % 0.4 % [facility] Eosinophils Abs 0.0 0.0 - 0.4 x10(3)/mc L [facility] Basophil % 0.0 % [facility] Baso Absolute 0.0 0.0 - 0.1 x10(3)/mc L [facility] Immature Gran % 0.90 % [facility] Comment: Immature granulocytes(IG's)percentage and absolute count will include metamyelocytes, myelocytes, and promyelocytes. Blood smears from CBCs yielding IG's will be scanned manually for concordance. If this scan disagrees with the automated IG or if promyelocytes are noted, a manual differential will be performed. Immature Gran Absolute 0.07(H) 0.00 - 0.04 x10(3)/mc L [facility] Blood 05/16/2023 4:20 AM EDT 05/16/2023 4:29 AM EDT Narrative Resulting Agency Comment Spec In Lab James Agustin MD HEMATOLOGY ORDER JODIE [facility] [place] [address] * (ABNORMAL) Hemogram (05/16/2023 4:20 AM EDT) White Blood Cell 7.4 4.0 - 9.5 x10(3)/mc L [facility] Red Blood Cell 2.40(L) 4.00 - 5.21 x10(6)/mc L [facility] Hemoglobin 7.8(L) 11.7 - 15.5 g/dL [facility] Hematocrit 22.5(L) 35.7 - 45.8 % [facility] Mean Cell Volume 93.8 82.6 - 94.4 fL [facility] Mean Cell Hemoglobin 32.5(H) 27.1 - 32.0 pg [facility] Mean Cell Hemoglobin Concentration 34.7 31.7 - 35.0 g/dL [facility] Platelet 120(L) 145 - 357 x10(3)/mc L [facility] RDW Standard Deviation 42.9 37.0 - 46.0 fL [facility] RDW coefficient of variation 12.9 11.5 - 14.1 % [facility] Mean Platelet Volume 11.3 7.6 - 12.9 fL [facility] NRBC% auto 0.7 % [facility] NRBC Absolute 0.050(H) 0.000 - 0.000 x10(3)/mc L [facility] Blood 05/16/2023 4:20 AM EDT 05/16/2023 4:29 AM EDT Narrative Resulting Agency Comment Spec In Lab James Agustin MD HEMATOLOGY ORDER JODIE [facility] [place] [address] * (ABNORMAL) Basic Metabolic Panel (non-fasting) (05/16/2023 4:20 AM EDT) Glucose 89 65 - 199 mg/dL [facility] Comment:Diabetes: >=200 mg/d L plus symptoms Blood Urea Nitrogen 108(H) 8 - 18 mg/dL [facility] Creatinine 4.74(H) 0.70 - 1.20 mg/dL [facility] Comment:result rechecked-[place] Sodium 132(L) 135 - 145 mmol/L [facility] Potassium 3.9 3.5 - 5.0 mmol/L [facility] Comment: Please note: ??Patients with WBC >100,000 may have falsely elevated Potassium levels. ??For accurate Potassium quantification in these patients send serum separator tube (gold top) for subsequent determinations. ??Contact the Clinical Chemistry Laboratory if there are any questions. Chloride 95(L) 98 - 107 mmol/L [facility] Carbon Dioxide 18(L) 22 - 31 mmol/L [facility] Anion Gap 19(H) 5 - 15 mmol/L [facility] Calcium 9.2 8.5 - 10.5 mg/dL [facility] Est Glomerular Filtration Rate 10(L) >=60 mL/min/1. 73 m?? [facility] Comment: This patient's estimated GFR [...] Alirio Hudson MD CHEMISTRY ORDERABLE S [facility] [place] [address] * (ABNORMAL) Iron and TIBC (05/16/2023 4:20 AM EDT) Iron 31 30 - 150 mcg/dL [facility] TIBC 259 250 - 450 mcg/dL [facility] Iron Saturation 12(L) 20 - 50 % [facility] Blood 05/16/2023 4:20 AM EDT 05/16/2023 4:29 AM EDT Narrative Resulting Agency Comment Spec In Lab Kristopher Ayoub MD CHEMISTRY ORDERABLES [facility] [place] [address] * (ABNORMAL) Basic Metabolic Panel (non-fasting) (05/15/2023 12:50 AM EDT) Glucose 101 65 - 199 mg/dL [facility] Comment:Diabetes: >=200 mg/d L plus symptoms Blood Urea Nitrogen 109(H) 8 - 18 mg/dL [facility] Creatinine 5.62(H) 0.70 - 1.20 mg/dL [facility] Comment:result rechecked-KS Sodium 131(L) 135 - 145 mmol/L [facility] Comment:result rechecked-KS Potassium 3.7 3.5 - 5.0 mmol/L [facility] Comment: result rechecked-KS Please note: ??Patients with WBC >100,000 may have falsely elevated Potassium levels. ??For accurate Potassium quantification in these patients send serum separator tube (gold top) for subsequent determinations. ??Contact the Clinical Chemistry Laboratory if there are any questions. Chloride 92(L) 98 - 107 mmol/L [facility] Comment:result rechecked-KS Carbon Dioxide 18(L) 22 - 31 mmol/L [facility] Comment:result rechecked-KS Anion Gap 21(H) 5 - 15 mmol/L [facility] Calcium 8.9 8.5 - 10.5 mg/dL [facility] Est Glomerular Filtration Rate 8(L) >=60 mL/min/1. 73 m?? [facility] Comment: This patient's estimated GFR [...] Alirio Hudson MD CHEMISTRY ORDERABLE S [facility] [place] [address] * (ABNORMAL) Hemogram (05/15/2023 12:50 AM EDT) White Blood Cell 9.1 4.0 - 9.5 x10(3)/mc L [facility] Red Blood Cell 2.19(L) 4.00 - 5.21 x10(6)/mc L [facility] Hemoglobin 7.2(L) 11.7 - 15.5 g/dL [facility] Hematocrit 20.6(L) 35.7 - 45.8 % [facility] Mean Cell Volume 94.1 82.6 - 94.4 fL [facility] Mean Cell Hemoglobin 32.9(H) 27.1 - 32.0 pg [facility] Mean Cell Hemoglobin Concentration 35.0 31.7 - 35.0 g/dL [facility] Platelet 109(L) 145 - 357 x10(3)/mc L [facility] RDW Standard Deviation 43.6 37.0 - 46.0 fL [facility] RDW coefficient of variation 12.9 11.5 - 14.1 % [facility] Mean Platelet Volume 10.4 7.6 - 12.9 fL [facility] NRBC% auto 2.1 % [facility] NRBC Absolute 0.190(H) 0.000 - 0.000 x10(3)/ L [facility] Blood 05/15/2023 12:5 0 AM EDT 05/15/2023 12:52 AM EDT Narrative Resulting Agency Comment Spec In Lab Alirio Hudson MD HEMATOLOGY ORDERABL ES Performing Organization Address City/State/[facility] Co de Phone Number [facility] [place] [address] * (ABNORMAL) BLOOD GAS 2 VENOUS (05/15/2023 12:49 AM EDT) pH, Venous 7.33 7.32 - 7.42 [facility] PCO2, Venous 37(L) 41 - 51 mmHg [facility] PO2, Venous 34 25 - 40 mmHg [facility] Bicarbonate, Venous 19.1 mmol/L [facility] Base Excess, Venous -6.8 mmol/L [facility] Hgb Blood Gas 10.8(L) 11.7 - 15.5 g/dL [facility] Oxyhemoglobin, Venous 58.1 % [facility] Carboxyhemoglob in, Venous 0.3 % [facility] Comment: Nonsmokers: 0.5-1.5% COHB Smokers: Variable, but usually less than 10% Toxic: 20-30% COHB Lethal: Greater than 60% COHB Methemoglobin, Venous 0.6 <=1.5 % [facility] Na Whole Blood 136 135 - 145 mmol/L [facility] K Whole Blood 3.7 3.5 - 5.0 mmol/L [facility] Comment: Please note: Patients with WBC >100,000 may have falsely elevated Potassium levels. Contact the Clinical Chemistry Laboratory if there are any questions. ICa Whole Blood 1.12(L) 1.15 - 1.33 mmol/L [facility] Comment: Note: ??Total bilirubin higher than 20 mg/dL may lead to falsely low ionized calcium. CL Whole Blood 95(L) 98 - 107 mmol/L [facility] Gluc Whole Bld 101 65 - 199 mg/dL [facility] Comment:Diabetes: >=200 mg/d L plus symptoms Lactate WB 1.3 0.5 - 2.2 mmol/L [facility] Flow, Mike 1.0 LPM [facility] Blood Gas Source Venous [facility] Blood 05/15/2023 12:4 9 AM EDT 05/15/2023 12:49 AM EDT Alirio Hudson MD POINT OF CARE TEST ORDERABLES Performing Organization Address City/State/[facility] Co de Phone Number [facility] [place] [address] * US Retroperitoneal Complete (05/14/2023 3:53 PM [...] have questions, please contact the health personal care aide that requested your imaging first. ? Hayden Robledo, Staff Physician Electronically Signed Final Report ?? 05/14/2023 04:39 pm Narrative 05/14/2023 4:39 PM EDT Renal ? (Signed Final 05/14/2023 04:39 pm) PATIENT INFO: ID #: ? [id number] ?: ??55 (67 yrs)(F) Name: ? PURNIMA THACKER ?Visit Date: 05/14/2023 03:44 pm PERFORMED BY: Attending: ?Meena CULP, Hayden Stafford Resident: ? Nell CULP, Anand August Performed By: ? Consuelo Tello RDMS Referred By: ?ALIRIO HUDSON Location: ? [place] SERVICE(S) PROVIDED: URETRO - Retroperitoneal Complete - [id number] ? [id number] INDICATIONS: [facility] COMPARISON: CT: Abdomen/Pelvis 05/11/23 RIGHT [...] 05/14/2023 04:39 pm) PATIENT INFO: ID #: [id number] : 55 (67 yrs)(F) Name: PURNIMA THACKER Visit Date: 05/14/2023 03:44 pm PERFORMED BY: Attending: Hayden Robledo MD Resident: Anand Camejo MD Performed By: Consuelo Tello RDMS Referred By: ALIRIO HUDSON Location: [place] SERVICE(S) PROVIDED: URETRO - Retroperitoneal Complete - [id number] INDICATIONS: EVANS COMPARISON: CT: Abdomen/Pelvis 05/11/23 RIGHT [...] have questions, please contact the health personal care aide that requested your imaging first. Hayden Robledo, Staff Physician Electronically Signed Final Report 05/14/2023 04:39 pm Alirio Hudson MD IMG US GEN ORDERABL ES * CK (05/14/2023 3:17 PM EDT) Creatine Kinase 123 0 - 160 unit/L [facility] Blood 05/14/2023 3:17 PM EDT 05/14/2023 3:31 PM EDT Narrative Resulting Agency Comment Spec In Lab Alirio Hudson MD CHEMISTRY ORDERABLE S Performing Organization Address [facility] Co de Phone Number [facility] [place] [address] * (ABNORMAL) Uric acid (05/14/2023 3:17 PM EDT) Uric Acid 14.9(H) 2.5 - 6.5 mg/dL [facility] Blood 05/14/2023 3:17 PM EDT 05/14/2023 3:31 PM EDT Narrative Resulting Agency Comment Spec In Lab Alirio Hudson MD CHEMISTRY ORDERABLE S Performing Organization Address [facility] Co de Phone Number [facility] [place] [address] * (ABNORMAL) Osmolality (05/14/2023 3:17 PM EDT) Osmolality 311(H) 275 - 295 mOsm/kg [facility] Blood 05/14/2023 3:17 PM EDT 05/14/2023 3:31 PM EDT Narrative Resulting Agency Comment Spec In Lab Alirio Hudson MD [place] [address] * (ABNORMAL) Differential, Automated (05/14/2023 1:10 AM EDT) Neutrophil % 87.2 % [facility] Neutrophil Absolute 9.74(H) 1.70 - 6.10 x10(3)/mc L [facility] Lymph % 3.9 % [facility] Lymphocytes Abs 0.4(L) 0.9 - 3.2 x10(3)/mc L [facility] Monocyte % 7.9 % [facility] Monocyte Abs 0.9 0.3 - 0.9 x10(3)/mc L [facility] Eos % 0.0 % [facility] Eosinophils Abs 0.0 0.0 - 0.4 x10(3)/mc L [facility] Basophil % 0.1 % [facility] Baso Absolute 0.0 0.0 - 0.1 x10(3)/mc L [facility] Immature Gran % 0.90 % [facility] Comment: Immature granulocytes(IG's)percentage and absolute count will include metamyelocytes, myelocytes, and promyelocytes. Blood smears from CBCs yielding IG's will be scanned manually for concordance. If this scan disagrees with the automated IG or if promyelocytes are noted, a manual differential will be performed. Immature Gran Absolute 0.10(H) 0.00 - 0.04 x10(3)/ L [facility] Blood 05/14/2023 1:10 AM EDT 05/14/2023 1:24 AM EDT Narrative Resulting Agency Comment Spec In Lab Bonita TOBAR HEMATOLOGY ORDERABLE S Performing Organization Address City/[facility]/ZIP Co de Phone Number [facility] [place] [address] * (ABNORMAL) Hemogram (05/14/2023 1:10 AM EDT) White Blood Cell 11.2(H) 4.0 - 9.5 x10(3)/mc L [facility] Red Blood Cell 2.19(L) 4.00 - 5.21 x10(6)/mc L [facility] Hemoglobin 7.2(L) 11.7 - 15.5 g/dL [facility] Hematocrit 20.3(L) 35.7 - 45.8 % [facility] Mean Cell Volume 92.7 82.6 - 94.4 fL [facility] Mean Cell Hemoglobin 32.9(H) 27.1 - 32.0 pg [facility] Mean Cell Hemoglobin Concentration 35.5(H) 31.7 - 35.0 g/dL [facility] Platelet 112(L) 145 - 357 x10(3)/mc L [facility] RDW Standard Deviation 41.4 37.0 - 46.0 fL [facility] RDW coefficient of variation 12.5 11.5 - 14.1 % [facility] Mean Platelet Volume 10.4 7.6 - 12.9 fL [facility] NRBC% auto 1.5 % [facility] NRBC Absolute 0.170(H) 0.000 - 0.000 x10(3)/ L [facility] Blood 05/14/2023 1:10 AM EDT 05/14/2023 1:24 AM EDT Narrative Resulting Agency Comment Spec In Lab Bonita TOBAR HEMATOLOGY ORDERABLE S [facility] [place] [address] * (ABNORMAL) Comprehensive metabolic panel (non-fasting) (05/14/2023 1:10 AM EDT) Glucose 120 65 - 199 mg/dL [facility] Comment:Diabetes: >=200 mg/d L plus symptoms Blood Urea Nitrogen 98(H) 8 - 18 mg/dL [facility] Creatinine 4.80(H) 0.70 - 1.20 mg/dL [facility] Comment:result rechecked-ssc Sodium 132(L) 135 - 145 mmol/L [facility] Potassium 4.1 3.5 - 5.0 mmol/L [facility] Comment: Please note: ??Patients with WBC >100,000 may have falsely elevated Potassium levels. ??For accurate Potassium quantification in these patients send serum separator tube (gold top) for subsequent determinations. ??Contact the Clinical Chemistry Laboratory if there are any questions. Chloride 94(L) 98 - 107 mmol/L [facility] Carbon Dioxide 18(L) 22 - 31 mmol/L [facility] Anion Gap 20(H) 5 - 15 mmol/L [facility] Calcium 8.5 8.5 - 10.5 mg/dL [facility] Protein, Total 5.8(L) 6.1 - 8.0 g/dL [facility] Albumin 3.6 3.2 - 5.2 g/dL [facility] Aspartate Aminotransferase 319(H) 0 - 30 unit/L [facility] Alanine Aminotransferase 437(H) 0 - 30 unit/L [facility] Alkaline Phosphatase 86 35 - 105 unit/L [facility] Bilirubin, Total 0.4 0.2 - 1.3 mg/dL [facility] Est Glomerular Filtration Rate 9(L) >=60 mL/min/1. 73 m?? [facility] Comment: This patient's estimated GFR [...] Alirio Hudson MD CHEMISTRY ORDERABLE S [facility] [place] [address] * APTT (05/13/2023 10:15 AM EDT) Partial Thromboplastin Time 27 25 - 37 sec [facility] Comment: The PTT is NOT appropriate for heparin monitoring. Use the Anti-Xa level for heparin monitoring (HEP UFH) or LMWH monitoring (HEP LMW). A PTT less than 37 seconds generally indicates adequate hemostasis. Blood 05/13/2023 10:1 5 AM EDT 05/13/2023 10:46 AM EDT Narrative Resulting Agency Comment Spec In Lab Alirio Hudson MD HEMATOLOGY ORDERABL ES Performing Organization Address [facility] de Phone Number [facility] [place] [address] * (ABNORMAL) Prothrombin Time (05/13/2023 10:15 AM EDT) Prothrombin Time 14.6(H) 9.4 - 12.5 sec [facility] International Normalization Ratio 1.3 [facility] Comment: An INR <2.0 indicates [...] ES Performing Organization Address [facility] de Phone Number [facility] [place] [address] * EKG 12 Lead (05/13/2023 9:22 AM EDT) Ventricular rate 92 BPM MUSE SYSTEM Atrial Rate 92 BPM MUSE SYSTEM P-R Interval 140 ms MUSE SYSTEM QRS Duration 104 ms MUSE SYSTEM Q-T Interval 384 ms MUSE SYSTEM QTC Calculated (Bezet) 474 ms MUSE SYSTEM Calculated P [place] 33 degrees MUSE SYSTEM Calculated R [place] 41 degrees MUSE SYSTEM Calculated T [place] -35 degrees MUSE SYSTEM INTERPRETATION Sinus rhythm with frequent Premature ventricular complexes Septal infarct , age undetermined ST & T wave abnormality, consider lateral ischemia Abnormal ECG When compared with ECG of 12-MAY-2023 10:10, Premature ventricular complexes are now Present I personally reviewed the tracing and edited the fellows interpretation Confirmed by fellow MD Anitha, Carissa ([id number]) on 05/13/2023 3:25:30 PM Confirmed by Maxx Best ([id number]) on 05/13/2023 8:30:56 PM MUSE SYSTEM 05/13/2023 9:22 AM EDT 05/13/2023 8:30 PM EDT Alirio Hudson MD ECG ORDERABLES MUSE SYSTEM * (ABNORMAL) Differential, Automated (05/13/2023 1:15 AM EDT) Neutrophil % 88.1 % [facility] Neutrophil Absolute 7.62(H) 1.70 - 6.10 x10(3)/mc L [facility] Lymph % 3.1 % [facility] Lymphocytes Abs 0.3(L) 0.9 - 3.2 x10(3)/mc L [facility] Monocyte % 7.9 % [facility] Monocyte Abs 0.7 0.3 - 0.9 x10(3)/mc L [facility] Eos % 0.0 % [facility] Eosinophils Abs 0.0 0.0 - 0.4 x10(3)/mc L [facility] Basophil % 0.1 % [facility] Baso Absolute 0.0 0.0 - 0.1 x10(3)/mc L [facility] Immature Gran % 0.80 % [facility] Comment: Immature granulocytes(IG's)percentage and absolute count will include metamyelocytes, myelocytes, and promyelocytes. Blood smears from CBCs yielding IG's will be scanned manually for concordance. If this scan disagrees with the automated IG or if promyelocytes are noted, a manual differential will be performed. Immature Gran Absolute 0.07(H) 0.00 - 0.04 x10(3)/mc L [facility] Blood 05/13/2023 1:15 AM EDT 05/13/2023 1:29 AM EDT Narrative Resulting Agency Comment Spec In Lab Lorri TOBAR HEMATOLOGY ORDERABLE S [facility] [place] [address] * (ABNORMAL) Hemogram (05/13/2023 1:15 AM EDT) White Blood Cell 8.6 4.0 - 9.5 x10(3)/mc L [facility] Red Blood Cell 2.37(L) 4.00 - 5.21 x10(6)/mc L [facility] Hemoglobin 7.8(L) 11.7 - 15.5 g/dL [facility] Hematocrit 22.2(L) 35.7 - 45.8 % [facility] Mean Cell Volume 93.7 82.6 - 94.4 fL [facility] Mean Cell Hemoglobin 32.9(H) 27.1 - 32.0 pg [facility] Mean Cell Hemoglobin Concentration 35.1(H) 31.7 - 35.0 g/dL [facility] Platelet 130(L) 145 - 357 x10(3)/mc L [facility] RDW Standard Deviation 41.7 37.0 - 46.0 fL [facility] RDW coefficient of variation 12.5 11.5 - 14.1 % [facility] Mean Platelet Volume 10.2 7.6 - 12.9 fL [facility] NRBC% auto 0.5 % [facility] NRBC Absolute 0.040(H) 0.000 - 0.000 x10(3)/ L [facility] Blood 05/13/2023 1:15 AM EDT 05/13/2023 1:29 AM EDT Narrative Resulting Agency Comment Spec In Lab Lorri TOBAR HEMATOLOGY ORDERABLE S [facility] [place] [address] * (ABNORMAL) Hepatic Function Panel (05/13/2023 1:15 AM EDT) Protein, Total 5.5(L) 6.1 - 8.0 g/dL [facility] Albumin 3.0(L) 3.2 - 5.2 g/dL [facility] Aspartate Aminotransferase 792(H) 0 - 30 unit/L [facility] Alanine Aminotransferase 903(H) 0 - 30 unit/L [facility] Alkaline Phosphatase 85 35 - 105 unit/L [facility] Bilirubin, Total 0.5 0.2 - 1.3 mg/dL [facility] Bilirubin, Direct 0.3 0.0 - 0.3 mg/dL [facility] Blood 05/13/2023 1:15 AM EDT 05/13/2023 1:29 AM EDT Narrative Resulting Agency Comment Spec In Lab Alirio Hudson MD CHEMISTRY ORDERABLE S [facility] [place] [address] * (ABNORMAL) Basic Metabolic Panel (non-fasting) (05/13/2023 1:15 AM EDT) Glucose 107 65 - 199 mg/dL [facility] Comment:Diabetes: >=200 mg/d L plus symptoms Blood Urea Nitrogen 82(H) 8 - 18 mg/dL [facility] Creatinine 3.15(H) 0.70 - 1.20 mg/dL [facility] Comment:result rechecked-NINAJ Sodium 132(L) 135 - 145 mmol/L [facility] Potassium 3.8 3.5 - 5.0 mmol/L [facility] Comment: Please note: ??Patients with WBC >100,000 may have falsely elevated Potassium levels. ??For accurate Potassium quantification in these patients send serum separator tube (gold top) for subsequent determinations. ??Contact the Clinical Chemistry Laboratory if there are any questions. Chloride 95(L) 98 - 107 mmol/L [facility] Carbon Dioxide 20(L) 22 - 31 mmol/L [facility] Anion Gap 17(H) 5 - 15 mmol/L [facility] Calcium 8.3(L) 8.5 - 10.5 mg/dL [facility] Est Glomerular Filtration Rate 16(L) >=60 mL/min/1. 73 m?? [facility] Comment: This patient's estimated GFR [...] Alirio Hudson MD CHEMISTRY ORDERABLE S [facility] [place] [address] * (ABNORMAL) BLOOD GAS 2 ARTERIAL (05/12/2023 3:57 PM EDT) pH, Arterial 7.39 7.35 - 7.45 [facility] PCO2, Arterial 33(L) 35 - 45 mmHg [facility] PO2, Arterial 101 85 - 104 mmHg [facility] Bicarbonate, Arterial 19.5(L) 20.0 - 26.0 mmol/L [facility] Base Excess, Arterial -5.5(L) -3.0 - 3.0 mmol/L [facility] Hgb Blood Gas 9.8(L) 11.7 - 15.5 g/dL [facility] Oxyhemoglobin, Arterial 95.2 94.0 - 97.0 % [facility] Carboxyhemoglob in, Arterial 0.2 % [facility] Comment: Nonsmokers: 0.5-1.5% COHB Smokers: Variable, but usually less than 10% Toxic: 20-30% COHB Lethal: Greater than 60% COHB Methemoglobin, Arterial 0.8 <=1.5 % [facility] Na Whole Blood 129(L) 135 - 145 mmol/L [facility] K Whole Blood 3.8 3.5 - 5.0 mmol/L [facility] Comment: Please note: Patients with WBC >100,000 may have falsely elevated Potassium levels. Contact the Clinical Chemistry Laboratory if there are any questions. ICa Whole Blood 1.05(L) 1.15 - 1.33 mmol/L [facility] Comment: Note: ??Total bilirubin higher than 20 mg/dL may lead to falsely low ionized calcium. CL Whole Blood 96(L) 98 - 107 mmol/L [facility] Gluc Whole Bld 178 65 - 199 mg/dL [facility] Comment:Diabetes: >=200 mg/d L plus symptoms. Lactate WB 1.5 0.5 - 2.2 mmol/L [facility] FIO2 Art 40 % [facility] PF Ratio Art 252 [facility] Blood 05/12/2023 3:57 PM EDT 05/12/2023 3:57 PM EDT Alirio Hudson MD POINT OF CARE TEST ORDERABLES Performing Organization Address [facility] Co de Phone Number [facility] [place] [address] * (ABNORMAL) Coox2 (05/12/2023 2:25 PM EDT) pO2, Coox 37 mmHg [facility] Hgb Blood Gas 9.5(L) 11.7 - 15.5 g/dL [facility] Oxyhemoglobin, Coox 59.9 % [facility] Carboxyhemoglo bin, Coox 0.3 % [facility] Comment: Nonsmokers: 0.5-1.5% COHB Smokers: Variable, but usually less than 10% Toxic: 20-30% COHB Lethal: Greater than 60% COHB Methemoglobin, Coox 0.7 <=1.5 % [facility] Source Coox Mixed Venous [facility] Blood 05/12/2023 2:25 PM EDT 05/12/2023 2:25 PM EDT Alirio Hudson MD POINT OF CARE TEST ORDERABLES Performing Organization Address [facility] Co de Phone Number [facility] [place] [address] * (ABNORMAL) BLOOD GAS 2 ARTERIAL (05/12/2023 2:23 PM EDT) pH, Arterial 7.37 7.35 - 7.45 [facility] PCO2, Arterial 36 35 - 45 mmHg [facility] PO2, Arterial 102 85 - 104 mmHg [facility] Bicarbonate, Arterial 20.4 20.0 - 26.0 mmol/L [facility] Base Excess, Arterial -4.8(L) -3.0 - 3.0 mmol/L [facility] Hgb Blood Gas 12.7 11.7 - 15.5 g/dL [facility] Oxyhemoglobin, Arterial 95.4 94.0 - 97.0 % [facility] Carboxyhemoglob in, Arterial 0.3 % [facility] Comment: Nonsmokers: 0.5-1.5% COHB Smokers: Variable, but usually less than 10% Toxic: 20-30% COHB Lethal: Greater than 60% COHB Methemoglobin, Arterial 0.7 <=1.5 % [facility] Na Whole Blood 129(L) 135 - 145 mmol/L [facility] K Whole Blood 3.7 3.5 - 5.0 mmol/L [facility] Comment: Please note: Patients with WBC >100,000 may have falsely elevated Potassium levels. Contact the Clinical Chemistry Laboratory if there are any questions. ICa Whole Blood 1.05(L) 1.15 - 1.33 mmol/L [facility] Comment: Note: ??Total bilirubin higher than 20 mg/dL may lead to falsely low ionized calcium. CL Whole Blood 95(L) 98 - 107 mmol/L [facility] Gluc Whole Bld 168 65 - 199 mg/dL [facility] Comment:Diabetes: >=200 mg/d L plus symptoms. Lactate WB 1.8 0.5 - 2.2 mmol/L [facility] FIO2 Art 40 % [facility] PF Ratio Art 255 [facility] Blood 05/12/2023 2:23 PM EDT 05/12/2023 2:23 PM EDT Alirio Hudson MD POINT OF CARE TEST ORDERABLES [facility] [place] [address] * (ABNORMAL) Troponin (05/12/2023 2:05 PM EDT) Troponin-T, High Sensitivity 1,022(H) <=14 ng/L [facility] Comment: This patient's troponin T [...] troponin value can be found in the [facility] Test Catalog Troponin - [facility] Test Catalog Reference: Fourth Steger Definition of Myocardial Infarction. Journal of the [employer] 2018;72:6157-1584 Blood 05/12/2023 2:05 PM EDT 05/12/2023 2:14 PM EDT Narrative Resulting Agency Comment Spec In Lab Alirio Hudson MD CHEMISTRY ORDERABLE S [facility] [place] [address] * (ABNORMAL) Hemoglobin (05/12/2023 2:05 PM EDT) Hemoglobin 8.5(L) 11.7 - 15.5 g/dL [facility] Blood 05/12/2023 2:05 PM EDT 05/12/2023 2:14 PM EDT Narrative Resulting Agency Comment Spec In Lab Alirio Hudson MD HEMATOLOGY ORDERABL ES Performing Organization Address [facility] Co de Phone Number [facility] [place] [address] * Potassium (05/12/2023 2:05 PM EDT) Potassium 3.9 3.5 - 5.0 mmol/L [facility] Comment: Please note: ??Patients with [...] S Performing Organization Address [facility] Co de Phone Number [facility] [place] [address] * (ABNORMAL) BLOOD GAS 2 ARTERIAL (05/12/2023 11:05 AM EDT) pH, Arterial 7.34(L) 7.35 - 7.45 [facility] PCO2, Arterial 42 35 - 45 mmHg [facility] PO2, Arterial 73(L) 85 - 104 mmHg [facility] Bicarbonate, Arterial 22.1 20.0 - 26.0 mmol/L [facility] Base Excess, Arterial -3.6(L) -3.0 - 3.0 mmol/L [facility] Hgb Blood Gas 9.3(L) 11.7 - 15.5 g/dL [facility] Oxyhemoglobin, Arterial 89.3(L) 94.0 - 97.0 % [facility] Carboxyhemoglob in, Arterial 0.2 % [facility] Comment: Nonsmokers: 0.5-1.5% COHB Smokers: Variable, but usually less than 10% Toxic: 20-30% COHB Lethal: Greater than 60% COHB Methemoglobin, Arterial 0.9 <=1.5 % [facility] Na Whole Blood 131(L) 135 - 145 mmol/L [facility] K Whole Blood 3.8 3.5 - 5.0 mmol/L [facility] Comment: Please note: Patients with WBC >100,000 may have falsely elevated Potassium levels. Contact the Clinical Chemistry Laboratory if there are any questions. ICa Whole Blood 1.04(L) 1.15 - 1.33 mmol/L [facility] Comment: Note: ??Total bilirubin higher than 20 mg/dL may lead to falsely low ionized calcium. CL Whole Blood 96(L) 98 - 107 mmol/L [facility] Gluc Whole Bld 152 65 - 199 mg/dL [facility] Comment:Diabetes: >=200 mg/d L plus symptoms. Lactate WB 2.8(H) 0.5 - 2.2 mmol/L [facility] FIO2 Art 40 % [facility] PF Ratio Art 182 [facility] Blood 05/12/2023 11:0 5 AM EDT 05/12/2023 11:05 AM EDT Alirio Hudson MD POINT OF CARE TEST ORDERABLES Performing Organization Address City/State/[facility] Co de Phone Number [facility] [place] [address] * (ABNORMAL) BLOOD GAS 2 ARTERIAL (05/12/2023 10:14 AM EDT) pH, Arterial 7.18(Criti gabrielle) 7.35 - 7.45 [facility] Comment:Noted by instrument installer. PCO2, Arterial 45 35 - 45 mmHg [facility] PO2, Arterial 186(H) 85 - 104 mmHg [facility] Bicarbonate, Arterial 16.2(L) 20.0 - 26.0 mmol/L [facility] Base Excess, Arterial -12.2(L) -3.0 - 3.0 mmol/L [facility] Hgb Blood Gas 10.0(L) 11.7 - 15.5 g/dL [facility] Oxyhemoglobin, Arterial 97.0 94.0 - 97.0 % [facility] Carboxyhemoglob in, Arterial 0.2 % [facility] Comment: Nonsmokers: 0.5-1.5% COHB Smokers: Variable, but usually less than 10% Toxic: 20-30% COHB Lethal: Greater than 60% COHB Methemoglobin, Arterial 0.9 <=1.5 % [facility] Na Whole Blood 129(L) 135 - 145 mmol/L [facility] K Whole Blood 3.6 3.5 - 5.0 mmol/L [facility] Comment: Please note: Patients with WBC >100,000 may have falsely elevated Potassium levels. Contact the Clinical Chemistry Laboratory if there are any questions. ICa Whole Blood 1.10(L) 1.15 - 1.33 mmol/L [facility] Comment: Note: ??Total bilirubin higher than 20 mg/dL may lead to falsely low ionized calcium. CL Whole Blood 97(L) 98 - 107 mmol/L [facility] Gluc Whole Bld 161 65 - 199 mg/dL [facility] Comment:Diabetes: >=200 mg/d L plus symptoms. Lactate WB 3.3(H) 0.5 - 2.2 mmol/L [facility] FIO2 Art 100 % [facility] PF Ratio Art 186 [facility] Blood 05/12/2023 10:1 4 AM EDT 05/12/2023 10:14 AM EDT Alirio Hudson MD POINT OF CARE TEST ORDERABLES Performing Organization Address City/State/[facility] Co de Phone Number [facility] [place] [address] * EKG 12 Lead (05/12/2023 10:10 AM EDT) Ventricular rate 116 BPM MUSE SYSTEM Atrial Rate 116 BPM MUSE SYSTEM P-R Interval 158 ms MUSE SYSTEM QRS Duration 114 ms MUSE SYSTEM Q-T Interval 348 ms MUSE SYSTEM QTC Calculated (Bezet) 483 ms MUSE SYSTEM Calculated P [place] 37 degrees MUSE SYSTEM Calculated R [place] 31 degrees MUSE SYSTEM Calculated T [place] -138 degrees MUSE SYSTEM INTERPRETATION Sinus tachycardia [...] interpretation Confirmed by fellow MD Anuja, Jim ([id number]) on 05/12/2023 1:04:20 PM Confirmed by MD Mono, Eleni ([id number]) on 05/12/2023 9:28:34 PM MUSE SYSTEM 05/12/2023 [...] questions please contact the health personal care aide that requested your imaging first. ? Electronically signed by: Chyna Johnson MD, [facility] ??([phone]), at 05/12/2023 10:08 AM Narrative 05/12/2023 10:08 AM EDT EXAMINATION: XR CHEST ONE VIEW CLINICAL HISTORY: Post TAVR TECHNIQUE: 1 view of the chest COMPARISON: Chest radiograph from earlier today FINDINGS: Interval placement of endotracheal tube with tip terminating 2 cm above the shira. Interval placement of enteric tube projecting along the expected course of the esophagus and outside the iwjdx-la-offr. Interval retraction of right IJ approach pulmonary [...] expected course ofthe esophagus and outside the rpbfj-wr-bnpb. Interval retraction of right IJ approach pulmonary [...] have questions please contactthe health personal care aide that requested your imaging first. Alirio [...] 1955 ? Height: 154 cm ? Account: [id number] Age: 67 yrs ? Weight: 75 kg Gender: Female ?BSA: 1.7 m2 Ordering Physician: RADHA HOLLINS Referring Physician: RADHA HOLLINS Performed By: Dimla Bee RDCS Reason For Study: Guidance for TAVR procedure Exam Location: [facility]. Interpretation Summary PRE TAVR: There is severe [...] mL/m2. POST TAVR: Normal function of the kzjff-dc-bivhe prosthesis. See below for hemodynamic parameters. Slight improvement in left and right ventricular systolic function. LVEF now 20-25%. No pericardial effusion. See report for additional findings. Procedure Limited - 01158. Doppler - 59994. Color Doppler - 70600. Left Ventricle Left ventricle is of normal [...] 307:33 AMBP: 96/63 mmHg Patient Location: [address] : 1955 Height: 154 cm Account: [id number] Age: 67 yrs Weight: 75 kg Gender: Female BSA: 1.7 m2 Ordering Physician: RADHA HOLLINS Referring Physician: RADHA HOLLINS Performed By: Dilma Bee RDCS Reason For Study: Guidance for TAVR procedure Exam Location: [facility]. Interpretation Summary PRE TAVR: There is severe [...] 28mL/m2. POST TAVR: Normal function of the knjss-ve-gpdrn prosthesis. See belowfor hemodynamic parameters. Slight improvement in left and right ventricularsystolic function. LVEF now 20-25%. No pericardial effusion. See report for additional findings. Procedure Limited - 49218. Doppler - 49419. Color Doppler - 03975. Left Ventricle Left ventricle is of normal [...] Narrative 05/12/2023 2:37 PM EDT ?[facility] ? Cardiac Catheterization/Intervention Report ? Patient Name: Kirstie, Purnima M. ? Procedure Date: 05/12/2023 ? A #: [id number] ? Primary Physician: Antelmo Sharma ? Case #: [id number] ? File Name: [id number] ? Catheterization Order Number: [id number] ? [facility] ? Final Report [place], [place] ? Patient Name: ? Purnima M. Kirstie ? ID#: ?[id number] ? : ?1955 ? Procedure Date: ? May 12, 2023 ? Case #: ? [id number] ? Room: ? 6 ? Case Physicians: ?Antelmo Sharma M.D. ?Start: ?08:03 ?Alirio Hudson M.D. ?Admission: ??05/08/2023 ?Lynda Mcgowan M.D. ? Discharge: ??05/22/2023 ?Fellow: ? Kristied Bhavna Tejeda. ? Referring Physician: ??Mario Alberto Chin M.D. ? Procedures: ?* Coronary Angiography ?* Left Heart Catheterization ?* Coronary Stent Insertion ?* Transcatheter Aortic Valve Replacement ?* Vascular Closure Device Deployment ?* Temporary Pacemaker Insertion In [employer] Manager ?* Endotracheal Intubation By Non-Cath Physician [...] was designated as ASA Class IV. The [facility] clinical ?frailty scale is 4: [...] ??A premounted 4.00 x 30 mm Nils Nichols (MINNA) was ? deployed with a maximum [...] calculated STS risk score was 30.1%. A vnqkv-zh-eshgb ?procedure was performed on the pre-existing bioprosthetic stented ?prosthesis. The priority of the szwlc-za-pxxnt procedure was Elective. ?The procedure was performed [...] Lai 3 Ultra RESILIA 23 mm THV (s/u=[id number]) transcatheter ?valve was inserted using standard technique. [...] to nor was it given in the ?orthodontic lab technician. ?Recommended anti-platelet/anti-thrombotic regimen: ?Continue aspirin 81 mg daily for indefinitely. ?These recommendations are made at the time of the intervention. Patient ?and provider preferences or a changing clinical situation may require ?modification of this regimen. Consult [facility] Interventional Cardiology for ?questions. ? Conclusions: ?* [...] regimen. ? Comments: ?Successful right transfemoral TAVR Vfcts-wk-Pgowa with a 23 mm Lai 3 ?THV. [...] insertion-coronary, access site angiography, ?temporary pacemaker in orthodontic lab technician, intubation-non cath physician, vascular ?closure device, transthoracic echo ??and TAVR. Dr. Alirio Hudson M.D. ?performed the left heart catheterization, access site angiography, ?temporary pacemaker in orthodontic lab technician, vascular closure device, transthoracic ?echo , TAVR and CPR during cath. Dr. Lynda Mcgowan M.D. performed the ABG, ?anesthesia and intubation-non cath physician. ? Antelmo Sharma M.D. ? Electronically Signed by: Antelmo Sharma M.D. ? Report Finalized: 05/12/2023 ??14:31 ? Report Last Ammended: 07/01/2023 ??11:30 ? Procedure Note Antelmo Sharma MD - 07/01/2023 [facility] Cardiac Catheterization/Intervention Report Patient Name: Purnima Thacker Procedure Date: 05/12/2023 A #: [id number] Primary Physician: Antelmo Sharma Case #: [id number] File Name: [id number] Catheterization Order Number: [id number] [facility] FinalReport [place], [place] Patient Name: Purnima Thacker ID#:[id number] :1955 Procedure Date: May 12, 2023 Case #: [id number] Room: 6 Case Physicians: Antelmo Sharma M.D. Start: 08:03 Alirio Hudson M.D. Admission:05/08/2023 Lynda Mcgowan M.D. Discharge:05/22/2023 Fellow: Rebekah Tejeda M.D. Referring Physician: Mario Alberto Chin M.D. Procedures: * Coronary Angiography * Left Heart Catheterization * Coronary Stent Insertion * Transcatheter Aortic Valve Replacement * Vascular Closure Device Deployment * Temporary Pacemaker Insertion In Global Logistics Manager * Endotracheal Intubation By Non-Cath Physician [...] guide. A premounted 4.00 x 30 mm [place] Nichols (MINNA) was deployed with a maximum inflation [...] calculated STS risk score was 30.1%. A nchyp-bx-sstpv procedure was performed on the pre-existing bioprosthetic stented prosthesis. The priority of the rcdbo-vq-rayxt procedure wasElective. The procedure was performed under Moderate sedation performed byLynda Mcgowan M.D. (see anesthesia report for additional details). Alirio Hudson M.D. participated in the case (see Cardiac Surgery reportfor additional details). The TAVR sheath was a 14 Fr Corona eSheath Introducer and theaccess site was femoral. Rapid ventricular pacing was performed. An Corona Lai 3 Ultra RESILIA 23 mm THV (s/u=[id number])transcatheter valve was inserted using standard technique. The [...] prior to nor was it given inthe orthodontic lab technician. Recommended anti-platelet/anti-thrombotic regimen: Continue aspirin 81 mg daily for indefinitely. These recommendations are made at the time of the intervention.Patient and provider preferences or a changing clinical situation mayrequire modification of this regimen. Consult [facility] Interventional Cardiologyfor questions. Conclusions: * Nonobstructive disease [...] this regimen. Comments: Successful right transfemoral TAVR Bmhuh-oa-Shilt with a 23 mmSapien 3 THV. We [...] insertion-coronary, access site angiography, temporary pacemaker in orthodontic lab technician, intubation-non cath physician,vascular closure device, transthoracic echo and TAVR. Dr. Alirio Hudson M.D. performed the left heart catheterization, access site angiography, temporary pacemaker in orthodontic lab technician, vascular closure device,transthoracic echo , TAVR [...] POC 7.20(Crit ical) 7.35 - 7.45 [facility] Comment:Critical value OK, C C Lab. pCO2, POC 42 35 - 45 mmHg [facility] pO2, POC 260(H) 85 - 104 mmHg [facility] Base Excess, POC -11.0(L) -3.0 - 3.0 mmol/L [facility] Bicarbonate, POC 16.7(L) 20.0 - 26.0 mmol/L [facility] Sodium, POC 129(L) 135 - 145 mmol/L [facility] POC Potassium 3.8 3.5 - 5.0 mmol/L [facility] Ionized Calcium, POC 1.12(L) 1.15 - 1.33 mmol/L [facility] POC Hematocrit 23.0(L) 34.0 - 45.0 % [facility] POC Calc Hgb 7.8(L) 11.2 - 15.7 g/dL [facility] Comment:The calculation of h emoglobin from hematocrit assumes a normal MCHC. POC Bgas Loc CC Lab [facility] Blood 05/12/2023 8:50 AM EDT 05/13/2023 12:00 PM EDT Alirio Hudson MD CHEMISTRY ORDERABLE S [facility] [place] [address] * (ABNORMAL) Point of Care Blood Gas Historical (05/12/2023 8:10 AM EDT) pH, POC 7.27(Crit ical) 7.35 - 7.45 [facility] Comment:Critical value OK, C C Lab. pCO2, POC 37 35 - 45 mmHg [facility] pO2, POC 29(Critic al) 85 - 104 mmHg [facility] Comment:Critical value OK, C C Lab. Base Excess, POC -10.0(L) -3.0 - 3.0 mmol/L [facility] Bicarbonate, POC 16.7(L) 20.0 - 26.0 mmol/L [facility] Sodium, POC 123(L) 135 - 145 mmol/L [facility] POC Potassium 4.0 3.5 - 5.0 mmol/L [facility] Ionized Calcium, POC 1.12(L) 1.15 - 1.33 mmol/L [facility] POC Hematocrit 27.0(L) 34.0 - 45.0 % [facility] POC Calc Hgb 9.2(L) 11.2 - 15.7 g/dL [facility] Comment:The calculation of h emoglobin from hematocrit assumes a normal MCHC. POC Bgas Loc CC Lab [facility] Blood 05/12/2023 8:10 AM EDT 05/13/2023 12:00 PM EDT Alirio Hudson MD CHEMISTRY ORDERABLE S Performing Organization Address City/[facility]/ZIP Co de Phone Number [facility] [place] [address] * (ABNORMAL) Lactate, whole blood, send to lab ([facility]) (05/12/2023 7:00 AM EDT) Lactate WB 2.4(H) 0.5 - 2.2 mmol/L [facility] Blood 05/12/2023 7:00 AM EDT 05/12/2023 7:09 AM EDT Narrative Resulting Agency Comment Spec In Lab Radha Hollins MD CHEMISTRY ORDERABL ES Performing Organization Address [facility] Co de Phone Number [facility] [place] [address] * (ABNORMAL) Comprehensive metabolic panel (non-fasting) (05/12/2023 6:00 AM EDT) Glucose 167 65 - 199 mg/dL [facility] Comment:Diabetes: >=200 mg/d L plus symptoms Blood Urea Nitrogen 67(H) 8 - 18 mg/dL [facility] Creatinine 2.01(H) 0.70 - 1.20 mg/dL [facility] Sodium 131(L) 135 - 145 mmol/L [facility] Potassium 4.3 3.5 - 5.0 mmol/L [facility] Comment: Please note: ??Patients with WBC >100,000 may have falsely elevated Potassium levels. ??For accurate Potassium quantification in these patients send serum separator tube (gold top) for subsequent determinations. ??Contact the Clinical Chemistry Laboratory if there are any questions. Chloride 97(L) 98 - 107 mmol/L [facility] Carbon Dioxide 14(L) 22 - 31 mmol/L [facility] Anion Gap 20(H) 5 - 15 mmol/L [facility] Calcium 8.6 8.5 - 10.5 mg/dL [facility] Protein, Total 6.3 6.1 - 8.0 g/dL [facility] Albumin 3.5 3.2 - 5.2 g/dL [facility] Aspartate Aminotransferase 1,435(H) 0 - 30 unit/L [facility] Alanine Aminotransferase 1,174(H) 0 - 30 unit/L [facility] Alkaline Phosphatase 100 35 - 105 unit/L [facility] Bilirubin, Total 0.9 0.2 - 1.3 mg/dL [facility] Est Glomerular Filtration Rate 27(L) >=60 mL/min/1. 73 m?? [facility] Comment: This patient's estimated GFR [...] Radha Hollins MD CHEMISTRY ORDERABL ES [facility] [place] [address] * (ABNORMAL) Coox2 (05/12/2023 5:08 AM EDT) pO2, Coox 24 mmHg [facility] Hgb Blood Gas 10.4(L) 11.7 - 15.5 g/dL [facility] Oxyhemoglobin, Coox 30.7 % [facility] Carboxyhemoglo bin, Coox 0.3 % [facility] Comment: Nonsmokers: 0.5-1.5% COHB Smokers: Variable, but usually less than 10% Toxic: 20-30% COHB Lethal: Greater than 60% COHB Methemoglobin, Coox 0.8 <=1.5 % [facility] Source Coox Mixed Venous [facility] Blood 05/12/2023 5:08 AM EDT 05/12/2023 5:08 AM EDT Radha Hollins MD POINT OF CARE TEST ORDERABLES Performing Organization Address City/[facility] Co de Phone Number [facility] [place] [address] * (ABNORMAL) Coox2 (05/12/2023 3:21 AM EDT) pO2, Coox 25 mmHg [facility] Hgb Blood Gas 10.8(L) 11.7 - 15.5 g/dL [facility] Oxyhemoglobin, Coox 32.7 % [facility] Carboxyhemoglo bin, Coox 0.3 % [facility] Comment: Nonsmokers: 0.5-1.5% COHB Smokers: Variable, but usually less than 10% Toxic: 20-30% COHB Lethal: Greater than 60% COHB Methemoglobin, Coox 0.7 <=1.5 % [facility] Source Coox Mixed Venous [facility] Blood 05/12/2023 3:21 AM EDT 05/12/2023 3:21 AM EDT Radha Hollins MD POINT OF CARE TEST ORDERABLES Performing Organization Address [facility] Co de Phone Number [facility] [place] [address] * (ABNORMAL) BLOOD GAS 2 ARTERIAL (05/12/2023 3:18 AM EDT) pH, Arterial 7.34(L) 7.35 - 7.45 [facility] PCO2, Arterial 30(L) 35 - 45 mmHg [facility] PO2, Arterial 72(L) 85 - 104 mmHg [facility] Bicarbonate, Arterial 16.0(L) 20.0 - 26.0 mmol/L [facility] Base Excess, Arterial -9.8(L) -3.0 - 3.0 mmol/L [facility] Hgb Blood Gas 11.0(L) 11.7 - 15.5 g/dL [facility] Oxyhemoglobin, Arterial 89.8(L) 94.0 - 97.0 % [facility] Carboxyhemoglob in, Arterial 0.3 % [facility] Comment: Nonsmokers: 0.5-1.5% COHB Smokers: Variable, but usually less than 10% Toxic: 20-30% COHB Lethal: Greater than 60% COHB Methemoglobin, Arterial 0.7 <=1.5 % [facility] Na Whole Blood 131(L) 135 - 145 mmol/L [facility] K Whole Blood 4.2 3.5 - 5.0 mmol/L [facility] Comment: Please note: Patients with WBC >100,000 may have falsely elevated Potassium levels. Contact the Clinical Chemistry Laboratory if there are any questions. ICa Whole Blood 1.12(L) 1.15 - 1.33 mmol/L [facility] Comment: Note: ??Total bilirubin higher than 20 mg/dL may lead to falsely low ionized calcium. CL Whole Blood 100 98 - 107 mmol/L [facility] Gluc Whole Bld 160 65 - 199 mg/dL [facility] Comment:Diabetes: >=200 mg/d L plus symptoms. Lactate WB 2.7(H) 0.5 - 2.2 mmol/L [facility] Flow Art 5.0 LPM [facility] Blood 05/12/2023 3:18 AM EDT 05/12/2023 3:18 AM EDT Radha Hollins MD POINT OF CARE TEST ORDERABLES [facility] [place] [address] * (ABNORMAL) Coox2 (05/12/2023 1:14 AM EDT) pO2, Coox 28 mmHg [facility] Hgb Blood Gas 10.9(L) 11.7 - 15.5 g/dL [facility] Oxyhemoglobin, Coox 37.3 % [facility] Carboxyhemoglo bin, Coox 0.3 % [facility] Comment: Nonsmokers: 0.5-1.5% COHB Smokers: Variable, but usually less than 10% Toxic: 20-30% COHB Lethal: Greater than 60% COHB Methemoglobin, Coox 0.5 <=1.5 % [facility] Source Coox Mixed Venous [facility] Blood 05/12/2023 1:14 AM EDT 05/12/2023 1:14 AM EDT Radha Hollins MD POINT OF CARE TEST ORDERABLES [facility] [place] [address] * (ABNORMAL) BLOOD GAS 2 ARTERIAL (05/12/2023 1:06 AM EDT) pH, Arterial 7.34(L) 7.35 - 7.45 [facility] PCO2, Arterial 30(L) 35 - 45 mmHg [facility] PO2, Arterial 81(L) 85 - 104 mmHg [facility] Bicarbonate, Arterial 15.7(L) 20.0 - 26.0 mmol/L [facility] Base Excess, Arterial -10.1(L) -3.0 - 3.0 mmol/L [facility] Hgb Blood Gas 11.0(L) 11.7 - 15.5 g/dL [facility] Oxyhemoglobin, Arterial 92.3(L) 94.0 - 97.0 % [facility] Carboxyhemoglob in, Arterial 0.2 % [facility] Comment: Nonsmokers: 0.5-1.5% COHB Smokers: Variable, but usually less than 10% Toxic: 20-30% COHB Lethal: Greater than 60% COHB Methemoglobin, Arterial 0.6 <=1.5 % [facility] Na Whole Blood 131(L) 135 - 145 mmol/L [facility] K Whole Blood 4.2 3.5 - 5.0 mmol/L [facility] Comment: Please note: Patients with WBC >100,000 may have falsely elevated Potassium levels. Contact the Clinical Chemistry Laboratory if there are any questions. ICa Whole Blood 1.13(L) 1.15 - 1.33 mmol/L [facility] Comment: Note: ??Total bilirubin higher than 20 mg/dL may lead to falsely low ionized calcium. CL Whole Blood 99 98 - 107 mmol/L [facility] Gluc Whole Bld 132 65 - 199 mg/dL [facility] Comment:Diabetes: >=200 mg/d L plus symptoms. Lactate WB 2.7(H) 0.5 - 2.2 mmol/L [facility] Flow Art 5.0 LPM [facility] Blood 05/12/2023 1:06 AM EDT 05/12/2023 1:06 AM EDT Radha Hollins MD POINT OF CARE TEST ORDERABLES [facility] [place] [address] * (ABNORMAL) Differential, Automated (05/12/2023 1:05 AM EDT) Neutrophil % 83.3 % [facility] Neutrophil Absolute 7.49(H) 1.70 - 6.10 x10(3)/mc L [facility] Lymph % 7.1 % [facility] Lymphocytes Abs 0.6(L) 0.9 - 3.2 x10(3)/mc L [facility] Monocyte % 8.9 % [facility] Monocyte Abs 0.8 0.3 - 0.9 x10(3)/mc L [facility] Eos % 0.0 % [facility] Eosinophils Abs 0.0 0.0 - 0.4 x10(3)/mc L [facility] Basophil % 0.1 % [facility] Baso Absolute 0.0 0.0 - 0.1 x10(3)/mc L [facility] Immature Gran % 0.60 % [facility] Comment: Immature granulocytes(IG's)percentage and absolute count will include metamyelocytes, myelocytes, and promyelocytes. Blood smears from CBCs yielding IG's will be scanned manually for concordance. If this scan disagrees with the automated IG or if promyelocytes are noted, a manual differential will be performed. Immature Gran Absolute 0.05(H) 0.00 - 0.04 x10(3)/mc L [facility] Blood 05/12/2023 1:05 AM EDT 05/12/2023 1:15 AM EDT Narrative Resulting Agency Comment Spec In Lab Gianni Fletcher MD HEMATOLOGY ORDERABLE S [facility] [place] [address] * (ABNORMAL) Hemogram (05/12/2023 1:05 AM EDT) White Blood Cell 9.0 4.0 - 9.5 x10(3)/mc L [facility] Red Blood Cell 3.01(L) 4.00 - 5.21 x10(6)/mc L [facility] Hemoglobin 9.8(L) 11.7 - 15.5 g/dL [facility] Hematocrit 28.7(L) 35.7 - 45.8 % [facility] Mean Cell Volume 95.3(H) 82.6 - 94.4 fL [facility] Mean Cell Hemoglobin 32.6(H) 27.1 - 32.0 pg [facility] Mean Cell Hemoglobin Concentration 34.1 31.7 - 35.0 g/dL [facility] Platelet 186 145 - 357 x10(3)/mc L [facility] RDW Standard Deviation 43.7 37.0 - 46.0 fL [facility] RDW coefficient of variation 12.7 11.5 - 14.1 % [facility] Mean Platelet Volume 10.3 7.6 - 12.9 fL [facility] NRBC% auto 0.0 % [facility] NRBC Absolute 0.000 0.000 - 0.000 x10(3)/mc L [facility] Blood 05/12/2023 1:05 AM EDT 05/12/2023 1:15 AM EDT Narrative Resulting Agency Comment Spec In Lab Gianni Fletcher MD HEMATOLOGY ORDERABLE S [facility] [place] [address] * (ABNORMAL) Comprehensive metabolic panel (non-fasting) (05/12/2023 1:05 AM EDT) Glucose 141 65 - 199 mg/dL [facility] Comment:Diabetes: >=200 mg/d L plus symptoms Blood Urea Nitrogen 63(H) 8 - 18 mg/dL [facility] Creatinine 1.86(H) 0.70 - 1.20 mg/dL [facility] Sodium 131(L) 135 - 145 mmol/L [facility] Potassium 4.4 3.5 - 5.0 mmol/L [facility] Comment: Please note: ??Patients with WBC >100,000 may have falsely elevated Potassium levels. ??For accurate Potassium quantification in these patients send serum separator tube (gold top) for subsequent determinations. ??Contact the Clinical Chemistry Laboratory if there are any questions. Chloride 96(L) 98 - 107 mmol/L [facility] Carbon Dioxide 14(L) 22 - 31 mmol/L [facility] Anion Gap 21(H) 5 - 15 mmol/L [facility] Calcium 9.0 8.5 - 10.5 mg/dL [facility] Protein, Total 6.6 6.1 - 8.0 g/dL [facility] Albumin 3.9 3.2 - 5.2 g/dL [facility] Aspartate Aminotransferase 1,227(H) 0 - 30 unit/L [facility] Alanine Aminotransferase 1,097(H) 0 - 30 unit/L [facility] Alkaline Phosphatase 108(H) 35 - 105 unit/L [facility] Bilirubin, Total 1.0 0.2 - 1.3 mg/dL [facility] Est Glomerular Filtration Rate 29(L) >=60 mL/min/1. 73 m?? [facility] Comment: This patient's estimated GFR [...] Radha Hollins MD CHEMISTRY ORDERABL ES [facility] [place] [address] * XR Chest One View (05/12/2023 1:00 [...] questions please contact the health personal care aide that requested your imaging first. [...] have questions please contactthe health personal care aide that requested your imaging first. Radha Hollins MD IMG DX ORDERABLES * (ABNORMAL) Coox2 (05/12/2023 12:30 AM EDT) pO2, Coox 22 mmHg [facility] Hgb Blood Gas 10.9(L) 11.7 - 15.5 g/dL [facility] Oxyhemoglobin, Coox 25.1 % [facility] Carboxyhemoglo bin, Coox 0.3 % [facility] Comment: Nonsmokers: 0.5-1.5% COHB Smokers: Variable, but usually less than 10% Toxic: 20-30% COHB Lethal: Greater than 60% COHB Methemoglobin, Coox 1.4 <=1.5 % [facility] Source Coox Mixed Venous [facility] Blood 05/12/2023 12:3 0 AM EDT 05/12/2023 12:30 AM EDT Radha Hollins MD POINT OF CARE TEST ORDERABLES [facility] [address] [place] [address] * XR Chest One View (05/11/2023 11:45 [...] questions please contact the health personal care aide that requested your imaging first. [...] have questions please contactthe health personal care aide that requested your imaging first. Radha Hollins MD IMG DX ORDERABLES * (ABNORMAL) Lactate, whole blood, send to lab ([facility]) (05/11/2023 7:40 PM EDT) Lactate WB 4.8(Critic al) 0.5 - 2.2 mmol/L [facility] Comment:Called by: [facility], Read back by: Magdalena Baires, Date/Time:05/11/23 19:54. Blood 05/11/2023 7:40 PM EDT 05/11/2023 7:49 PM EDT Narrative Resulting Agency Comment Spec In Lab Radha Hollins MD CHEMISTRY ORDERABL ES Performing Organization Address [facility]/ZIP Co de Phone Number [facility] [place] [address] * Urine culture (05/11/2023 7:22 PM EDT) Pathologist [facility] Urine Culture 50,000-99,000 cfu/ml Normal mucosal herman Susceptibilit y testing not routinely performed for Coagulase Negative Staphylococcu s species and other Gram Positive organisms from urine. [facility] Clean Catch Urine 05/11/2023 7:22 PM EDT 05/11/2023 8:50 PM EDT Narrative Resulting Agency Comment Spec In Lab Brody Dale Eusebio OSBORN MICROBIOLOGY - GENE RAL ORDERABLES Performing Organization Address [facility] Co de Phone Number [facility] [place] [address] * (ABNORMAL) Urinalysis Microscopic Exam (05/11/2023 7:22 PM EDT) Pathologist [facility] RBC, Urine 2 0 - 4 /HPF [facility] WBC, Urine >100(H) 0 - 5 /HPF [facility] Bacteria, Urine Occasional (A) None /HPF [facility] Squamous Epithelial Cells Raw Data, Urine 5(H) <=4 /HPF [facility] Hyaline Casts, Urine 3(H) 0 - 2 /LPF [facility] Clean Catch Urine 05/11/2023 7:22 PM EDT 05/11/2023 7:31 PM EDT Narrative Resulting Agency Comment Spec In Lab Brody Elvia Eusebio LEMAN URINE ORDERABLES Performing Organization Address [facility]/ZIP Co de Phone Number [facility] [place] [address] * (ABNORMAL) Urinalysis with reflex Culture (05/11/2023 7:22 PM EDT) Glucose, Urine Dipstick Negative Negative mg/dL [facility] Protein, Urine Dipstick Trace(A) Negative mg/dL [facility] Bilirubin, Urine Dipstick Negative Negative mg/dL [facility] Comment: Clinical correlation required for positive Urine Bilirubin results as false positive may occur with some drugs and drug related products. If a false positive is suspected a serum total bilirubin should be considered if clinically indicated. Urobilinogen, Urine Dipstick Normal Normal mg/dL [facility] pH, Urn (dipstick) 5.0 5.0 - 8.0 [facility] Blood, Urine Dipstick Trace(A) Negative mg/dL [facility] Ketone, Urine Dipstick Negative Negative mg/dL [facility] Nitrite, Urine Dipstick Negative Negative [facility] Leukocytes, Urine Dipstick Moderate(A) Negative mcL [facility] Appearance, Urine Dipstick Cloudy(A) Clear [facility] Specific Wallace Urine Automated >=1.030(A) 1.005 - 1.030 [facility] Color, Urine Dipstick Yellow Yellow [facility] Reflex to Culture Yes [facility] Clean Catch Urine 05/11/2023 7:22 PM EDT 05/11/2023 7:31 PM EDT Narrative Resulting Agency Comment Spec In Lab Brody Kaplan APRN URINE ORDERABLES Performing Organization Address [facility]/ZIP Co de Phone Number [facility] [place] [address] * (ABNORMAL) pro-Brain Natriuretic Peptide (05/11/2023 7:11 PM EDT) NT-proBNP >35,000(H) <=124 pg/mL [facility] Blood 05/11/2023 7:11 PM EDT 05/11/2023 7:26 PM EDT Narrative Resulting Agency Comment Spec In Lab Radha Hollins MD CHEMISTRY ORDERABL ES Performing Organization Address City/[facility]/ZIP Co de Phone Number [facility] [place] [address] * (ABNORMAL) Lactate, whole blood, send to lab ([facility]) (05/11/2023 2:47 PM EDT) Lactate WB 2.9(H) 0.5 - 2.2 mmol/L [facility] Blood 05/11/2023 2:47 PM EDT 05/11/2023 2:53 PM EDT Narrative Resulting Agency Comment Spec In Lab Juan Luis Gonzalez MD CHEMISTRY ORDERABLES [facility] [place] [address] * (ABNORMAL) CT Angiogram Abdomen & Pelvis [...] questions please contact the health personal care aide that requested your imaging first. [...] questions please contact the health personal care aide that requested your imaging first. ? Electronically signed by: uCllen Narayanan MD, [facility] ([phone]), at 05/11/2023 4:37 PM Narrative 05/11/2023 4:37 [...] 610 mm2 Circumference: 88 mm Calcification: Mild [id number]-[id number] height: Left: 6.2 mm Right: 5.8 mm THORACIC AORTA Description: Normal course and caliber. ??Mild diffuse atherosclerotic changes. No acute aortopathy noted. Rn First Assist dimensions: Aortic root: 27.6 mm Max ascending aorta: 30.5 mm x 27.7 mm Suggested fluoroscopic angulation based on line extending through the nadirs of the three sinuses of Valsalva, set equidistant: ?? NEPALESE ??9 degrees; cranial 7 degrees MITRAL: Mitral [...] 610 mm2 Circumference: 88 mm Calcification: Mild Ctmmjrz-[id number] height: Left: 6.2 mm Right: 5.8 mm THORACIC AORTA Description: Normal course and caliber. Mild diffuse atheroscleroticchanges. No acute aortopathy noted. Rn First Assist dimensions: Aortic root: 27.6 mm Max ascending aorta: 30.5 mm x 27.7 mm Suggested fluoroscopic angulation based on line extending through thenadirs of the three sinuses of Valsalva, set equidistant: NEPALESE 9 degrees; cranial 7 degrees MITRAL: Mitral [...] have questions please contactthe health personal care aide that requested your imaging first. Electronically signed by: Cullen Narayanan MD, [facility]([phone]), at 05/11/2023 4:37 PM Antelmo Sharma MD IMG CT ORDERABLES * (ABNORMAL) Lactate, whole blood, send to lab ([facility]) (05/11/2023 9:29 AM EDT) Lactate WB 3.1(H) 0.5 - 2.2 mmol/L [facility] Blood 05/11/2023 9:29 AM EDT 05/11/2023 9:38 AM EDT Narrative Resulting Agency Comment Spec In Lab Juan Luis Gonzalez MD CHEMISTRY ORDERABLES [facility] [place] [address] * (ABNORMAL) Differential, Automated (05/11/2023 4:42 AM EDT) Neutrophil % 78.1 % [facility] Neutrophil Absolute 5.46 1.70 - 6.10 x10(3)/mc L [facility] Lymph % 10.6 % [facility] Lymphocytes Abs 0.7(L) 0.9 - 3.2 x10(3)/mc L [facility] Monocyte % 9.6 % [facility] Monocyte Abs 0.7 0.3 - 0.9 x10(3)/mc L [facility] Eos % 0.0 % [facility] Eosinophils Abs 0.0 0.0 - 0.4 x10(3)/mc L [facility] Basophil % 0.4 % [facility] Baso Absolute 0.0 0.0 - 0.1 x10(3)/mc L [facility] Immature Gran % 1.30 % [facility] Comment: Immature granulocytes(IG's)percentage and absolute count will include metamyelocytes, myelocytes, and promyelocytes. Blood smears from CBCs yielding IG's will be scanned manually for concordance. If this scan disagrees with the automated IG or if promyelocytes are noted, a manual differential will be performed. Immature Gran Absolute 0.09(H) 0.00 - 0.04 x10(3)/mc L [facility] Blood 05/11/2023 4:42 AM EDT 05/11/2023 4:49 AM EDT Narrative Resulting Agency Comment Spec In Lab Klaudia Reid MD HEMATOLOGY OR DERABLES Performing Organization Address City/[facility] Co de Phone Number [facility] [place] [address] * (ABNORMAL) Hemogram (05/11/2023 4:42 AM EDT) White Blood Cell 7.0 4.0 - 9.5 x10(3)/mc L [facility] Red Blood Cell 3.44(L) 4.00 - 5.21 x10(6)/[facility] Hemoglobin 11.1(L) 11.7 - 15.5 g/dL [facility] Hematocrit 32.7(L) 35.7 - 45.8 % [facility] Mean Cell Volume 95.1(H) 82.6 - 94.4 fL [facility] Mean Cell Hemoglobin 32.3(H) 27.1 - 32.0 pg [facility] Mean Cell Hemoglobin Concentration 33.9 31.7 - 35.0 g/dL [facility] Platelet 165 145 - 357 x10(3)/mc L [facility] RDW Standard Deviation 43.1 37.0 - 46.0 fL [facility] RDW coefficient of variation 12.7 11.5 - 14.1 % [facility] Mean Platelet Volume 10.1 7.6 - 12.9 fL [facility] NRBC% auto 0.0 % [facility] NRBC Absolute 0.000 0.000 - 0.000 x10(3)/ L [facility] Blood 05/11/2023 4:42 AM EDT 05/11/2023 4:49 AM EDT Narrative Resulting Agency Comment Spec In Lab Klaudia Reid MD HEMATOLOGY OR DERABLES Performing Organization Address [facility] Co de Phone Number [facility] [place] [address] * Heparin (unfractionated) Level (05/11/2023 4:42 AM EDT) UF Heparin 0.46 IU/mL [facility] Comment: Heparin (anti-Xa) levels [...] LES Performing Organization Address [facility] Co de Phone Number [facility] [place] [address] * (ABNORMAL) Comprehensive metabolic panel (non-fasting) (05/11/2023 4:42 AM EDT) Glucose 143 65 - 199 mg/dL [facility] Comment:Diabetes: >=200 mg/d L plus symptoms Blood Urea Nitrogen 42(H) 8 - 18 mg/dL [facility] Creatinine 1.24(H) 0.70 - 1.20 mg/dL [facility] Sodium 134(L) 135 - 145 mmol/L [facility] Potassium 4.6 3.5 - 5.0 mmol/L [facility] Comment: Please note: ??Patients with WBC >100,000 may have falsely elevated Potassium levels. ??For accurate Potassium quantification in these patients send serum separator tube (gold top) for subsequent determinations. ??Contact the Clinical Chemistry Laboratory if there are any questions. Chloride 99 98 - 107 mmol/L [facility] Carbon Dioxide 14(L) 22 - 31 mmol/L [facility] Anion Gap 21(H) 5 - 15 mmol/L [facility] Calcium 9.6 8.5 - 10.5 mg/dL [facility] Protein, Total 7.2 6.1 - 8.0 g/dL [facility] Albumin 3.7 3.2 - 5.2 g/dL [facility] Aspartate Aminotransferase 144(H) 0 - 30 unit/L [facility] Comment:result rechecked-ssc Alanine Aminotransferase 130(H) 0 - 30 unit/L [facility] Comment:result rechecked-[facility] Alkaline Phosphatase 72 35 - 105 unit/L [facility] Bilirubin, Total 0.8 0.2 - 1.3 mg/dL [facility] Est Glomerular Filtration Rate 48(L) >=60 mL/min/1. 73 m?? [facility] Comment: This patient's estimated GFR [...] Radha Hollins MD CHEMISTRY ORDERABL ES [facility] [place] [address] * EKG 12 Lead (05/10/2023 1:16 PM EDT) Ventricular rate 118 BPM MUSE SYSTEM Atrial Rate 118 BPM MUSE SYSTEM P-R Interval 152 ms MUSE SYSTEM QRS Duration 104 ms MUSE SYSTEM Q-T Interval 316 ms MUSE SYSTEM QTC Calculated (Bezet) 442 ms MUSE SYSTEM Calculated P [place] 29 degrees MUSE SYSTEM Calculated R [place] 18 degrees MUSE SYSTEM Calculated T [place] -173 degrees MUSE SYSTEM INTERPRETATION Sinus tachycardia [...] Anterior leads Confirmed by MD Villareal Danette ([id number]) on 05/10/2023 8:47:46 PM MUSE SYSTEM 05/10/2023 1:16 PM EDT 05/10/2023 8:47 PM EDT Juan Luis Gonzalez MD ECG ORDERABLES MUSE SYSTEM * Lactate, whole blood, send to lab ([facility]) (05/10/2023 11:52 AM EDT) Lactate WB 1.8 0.5 - 2.2 mmol/L [facility] Blood 05/10/2023 11:5 2 AM EDT 05/10/2023 12:13 PM EDT Narrative Resulting Agency Comment Spec In Lab Juan Luis Gonzalez MD CHEMISTRY ORDERABLES [facility] [place] [address] * XR Chest One View (05/10/2023 11:16 [...] questions please contact the health personal care aide that requested your imaging first. ? Electronically signed by: ALIX RUVALCABA MD, [facility] ([phone]), at 05/10/2023 1:25 PM Narrative 05/10/2023 1:25 [...] have questions please contactthe health personal care aide that requested your imaging first. Juan Luis Gonzalez MD IMG DX ORDERABLES * EKG 12 Lead (05/10/2023 7:59 AM EDT) [facility] Ventricular rate 115 BPM MUSE SYSTEM Atrial Rate 115 BPM MUSE SYSTEM P-R Interval 142 ms MUSE SYSTEM QRS Duration 102 ms MUSE SYSTEM Q-T Interval 322 ms MUSE SYSTEM QTC Calculated (Bezet) 445 ms MUSE SYSTEM Calculated P [place] 36 degrees MUSE SYSTEM Calculated R [place] 28 degrees MUSE SYSTEM Calculated T [place] -119 degrees MUSE SYSTEM INTERPRETATION Sinus tachycardia [...] (ABNORMAL) Differential, Automated (05/10/2023 2:28 AM EDT) [facility] Neutrophil % 77.1 % [facility] Neutrophil Absolute 4.01 1.70 - 6.10 x10(3)/mc L [facility] Lymph % 14.0 % [facility] Lymphocytes Abs 0.7(L) 0.9 - 3.2 x10(3)/mc L [facility] Monocyte % 7.7 % [facility] Monocyte Abs 0.4 0.3 - 0.9 x10(3)/mc L [facility] Eos % 0.4 % [facility] Eosinophils Abs 0.0 0.0 - 0.4 x10(3)/mc L [facility] Basophil % 0.4 % [facility] Baso Absolute 0.0 0.0 - 0.1 x10(3)/mc L [facility] Immature Gran % 0.40 % [facility] Comment: Immature granulocytes(IG's)percentage and absolute count will include metamyelocytes, myelocytes, and promyelocytes. Blood smears from CBCs yielding IG's will be scanned manually for concordance. If this scan disagrees with the automated IG or if promyelocytes are noted, a manual differential will be performed. Immature Gran Absolute 0.02 0.00 - 0.04 x10(3)/[facility] Blood 05/10/2023 2:28 AM EDT 05/10/2023 2:57 AM EDT Narrative Resulting Agency Comment Spec In Lab Klaudia Reid MD HEMATOLOGY OR DERABLES [facility] [place] [address] * (ABNORMAL) Hemogram (05/10/2023 2:28 AM EDT) White Blood Cell 5.2 4.0 - 9.5 x10(3)/[facility] Red Blood Cell 3.11(L) 4.00 - 5.21 x10(6)/[facility] Hemoglobin 10.2(L) 11.7 - 15.5 g/dL [facility] Hematocrit 30.2(L) 35.7 - 45.8 % [facility] Mean Cell Volume 97.1(H) 82.6 - 94.4 fL [facility] Mean Cell Hemoglobin 32.8(H) 27.1 - 32.0 pg [facility] Mean Cell Hemoglobin Concentration 33.8 31.7 - 35.0 g/dL [facility] Platelet 151 145 - 357 x10(3)/[facility] LABORATORY RDW Standard Deviation 44.9 37.0 - 46.0 fL [facility] RDW coefficient of variation 12.8 11.5 - 14.1 % [facility] Mean Platelet Volume 9.8 7.6 - 12.9 fL [facility] NRBC% auto 0.0 % [facility] LABORAT[facility] NRBC Absolute 0.000 0.000 - 0.000 x10(3)/[facility] LABORATORY Blood 05/10/2023 2:28 AM EDT 05/10/2023 2:57 AM EDT Narrative Resulting Agency Comment Spec In Lab Klaudia Reid MD HEMATOLOGY OR DERABLES [facility] [place] [address] * (ABNORMAL) Comprehensive metabolic panel (non-fasting) (05/10/2023 2:28 AM EDT) Glucose 100 65 - 199 mg/dL [facility] Comment:Diabetes: >=200 mg/d L plus symptoms Blood Urea Nitrogen 30(H) 8 - 18 mg/dL [facility] Creatinine 0.90 0.70 - 1.20 mg/dL [facility] Sodium 134(L) 135 - 145 mmol/L [facility] Potassium 4.1 3.5 - 5.0 mmol/L [facility] Comment: Please note: ??Patients with WBC >100,000 may have falsely elevated Potassium levels. ??For accurate Potassium quantification in these patients send serum separator tube (gold top) for subsequent determinations. ??Contact the Clinical Chemistry Laboratory if there are any questions. Chloride 102 98 - 107 mmol/L [facility] Carbon Dioxide 20(L) 22 - 31 mmol/L [facility] Anion Gap 12 5 - 15 mmol/L [facility] Calcium 9.3 8.5 - 10.5 mg/dL [facility] Protein, Total 6.4 6.1 - 8.0 g/dL [facility] Albumin 3.7 3.2 - 5.2 g/dL [facility] Aspartate Aminotransferase 24 0 - 30 unit/L [facility] Alanine Aminotransferase 14 0 - 30 unit/L [facility] Alkaline Phosphatase 70 35 - 105 unit/L [facility] Bilirubin, Total 0.5 0.2 - 1.3 mg/dL [facility] Est Glomerular Filtration Rate 70 >=60 mL/min/1. 73 m?? [facility] Comment: This patient's estimated GFR [...] ES Performing Organization Address [facility] [place] [address] * Heparin (unfractionated) Level (05/10/2023 2:28 AM EDT) UF Heparin 0.37 IU/mL [facility] Comment: Heparin (anti-Xa) levels [...] LES Performing Organization Address [facility]/ZIP Co de Phone Number [facility] [place] [address] * (ABNORMAL) Differential, Automated (05/09/2023 4:00 AM EDT) Neutrophil % 81.7 % [facility] Neutrophil Absolute 5.26 1.70 - 6.10 x10(3)/mc L [facility] Lymph % 10.7 % [facility] Lymphocytes Abs 0.7(L) 0.9 - 3.2 x10(3)/[facility] LABORATORY Monocyte % 6.5 % [facility] LAB[facility] Monocyte Abs 0.4 0.3 - 0.9 x10(3)/[facility] LABORATORY Eos % 0.5 % [facility] Eosinophils Abs 0.0 0.0 - 0.4 x10(3)/[facility] LABORATORY Basophil % 0.3 % [facility] Baso Absolute 0.0 0.0 - 0.1 x10(3)/[facility] LABORATORY Immature Gran % 0.30 % [facility] Comment: Immature granulocytes(IG's)percentage and absolute count will include metamyelocytes, myelocytes, and promyelocytes. Blood smears from CBCs yielding IG's will be scanned manually for concordance. If this scan disagrees with the automated IG or if promyelocytes are noted, a manual differential will be performed. Immature Gran Absolute 0.02 0.00 - 0.04 x10(3)/ L [facility] Blood 05/09/2023 4:00 AM EDT 05/09/2023 4:19 AM EDT Narrative Resulting Agency Comment Spec In Lab Klaudia Reid MD HEMATOLOGY OR DERABLES [facility] [place] [address] * (ABNORMAL) Hemogram (05/09/2023 4:00 AM EDT) White Blood Cell 6.4 4.0 - 9.5 x10(3)/[facility] LABORATORY Red Blood Cell 3.15(L) 4.00 - 5.21 x10(6)/[facility] LABORATORY Hemoglobin 10.2(L) 11.7 - 15.5 g/dL [facility] Hematocrit 30.3(L) 35.7 - 45.8 % [facility] Mean Cell Volume 96.2(H) 82.6 - 94.4 fL [facility] Mean Cell Hemoglobin 32.4(H) 27.1 - 32.0 pg [facility] Mean Cell Hemoglobin Concentration 33.7 31.7 - 35.0 g/dL [facility] Platelet 151 145 - 357 x10(3)/mc L [facility] RDW Standard Deviation 44.7 37.0 - 46.0 fL [facility] RDW coefficient of variation 12.8 11.5 - 14.1 % [facility] Mean Platelet Volume 9.4 7.6 - 12.9 fL [facility] NRBC% auto 0.0 % [facility] NRBC Absolute 0.000 0.000 - 0.000 x10(3)/mc L [facility] Blood 05/09/2023 4:00 AM EDT 05/09/2023 4:19 AM EDT Narrative Resulting Agency Comment Spec In Lab Klaudia Reid MD HEMATOLOGY OR DERABLES Performing Organization Address City/State/[facility] Co de Phone Number [facility] [place] [address] * Heparin (unfractionated) Level (05/09/2023 4:00 AM EDT) UF Heparin 0.47 IU/mL [facility] Comment: Heparin (anti-Xa) levels should [...] Radha Hollins MD HEMATOLOGY ORDERAB LES [facility] [place] [address] * (ABNORMAL) Comprehensive metabolic panel (non-fasting) (05/09/2023 4:00 AM EDT) Glucose 108 65 - 199 mg/dL [facility] Comment:Diabetes: >=200 mg/d L plus symptoms Blood Urea Nitrogen 31(H) 8 - 18 mg/dL [facility] Creatinine 1.03 0.70 - 1.20 mg/dL [facility] Sodium 137 135 - 145 mmol/L [facility] Potassium 4.4 3.5 - 5.0 mmol/L [facility] Comment: Please note: ??Patients with WBC >100,000 may have falsely elevated Potassium levels. ??For accurate Potassium quantification in these patients send serum separator tube (gold top) for subsequent determinations. ??Contact the Clinical Chemistry Laboratory if there are any questions. Chloride 102 98 - 107 mmol/L [facility] Carbon Dioxide 20(L) 22 - 31 mmol/L [facility] Anion Gap 15 5 - 15 mmol/L [facility] Calcium 9.3 8.5 - 10.5 mg/dL [facility] Protein, Total 6.6 6.1 - 8.0 g/dL [facility] Albumin 3.8 3.2 - 5.2 g/dL [facility] Aspartate Aminotransferase 32(H) 0 - 30 unit/L [facility] Alanine Aminotransferase 18 0 - 30 unit/L [facility] Alkaline Phosphatase 78 35 - 105 unit/L [facility] Bilirubin, Total 0.5 0.2 - 1.3 mg/dL [facility] Est Glomerular Filtration Rate 60 >=60 mL/min/1. 73 m?? [facility] Comment: This patient's estimated GFR [...] ES Performing Organization Address [facility] Co de Phone Number [facility] [place] [address] * (ABNORMAL) pro-Brain Natriuretic Peptide (05/08/2023 4:00 PM EDT) NT-proBNP 25,503(H) <=124 pg/mL [facility] Blood Venous Draw / Unknown 05/08/2023 4:00 PM EDT 05/08/2023 4:25 PM EDT Narrative Resulting Agency Comment Spec In Lab Juan Luis Gonzalez MD CHEMISTRY ORDERABLES Performing Organization Address [facility] Co de Phone Number [facility] [place] [address] * Magnesium (05/08/2023 4:00 PM EDT) Magnesium 0.82 0.69 - 1.07 mmol/L [facility] Blood 05/08/2023 4:00 PM EDT 05/08/2023 4:06 PM EDT Narrative Resulting Agency Comment Spec In Lab Enrique Chua MD CHEMISTRY ORDERABLES Performing Organization Address [facility] Co de Phone Number [facility] [place] [address] * Potassium (05/08/2023 4:00 PM EDT) Potassium 3.9 3.5 - 5.0 mmol/L [facility] Comment: Please note: ??Patients with [...] ES Performing Organization Address [facility] Co de Phone Number [facility] [place] [address] * Heparin (unfractionated) Level (05/08/2023 4:00 PM EDT) Pathologist [facility] UF Heparin 0.43 IU/mL [facility] Comment: Heparin (anti-Xa) levels [...] LES Performing Organization Address [facility] Co de Phone Number [facility] [place] [address] * EKG 12 Lead (05/08/2023 3:51 PM EDT) Ventricular rate 98 BPM MUSE SYSTEM Atrial Rate 98 BPM MUSE SYSTEM P-R Interval 150 ms MUSE SYSTEM QRS Duration 102 ms MUSE SYSTEM Q-T Interval 358 ms MUSE SYSTEM QTC Calculated (Bezet) 457 ms MUSE SYSTEM Calculated P [place] 38 degrees MUSE SYSTEM Calculated R [place] 48 degrees MUSE SYSTEM Calculated T [place] -112 degrees MUSE SYSTEM INTERPRETATION Sinus rhythm with frequent and consecutive Premature ventricular and fusion complexes Septal infarct , age undetermined ST & T wave abnormality, consider anterolateral ischemia Abnormal ECG When compared with ECG of 09-NOV-2022 11:17, T wave inversion now evident in Anterolateral leads Confirmed by MD Harshil, Enrique Bell ([id number]) on 05/10/2023 8:11:46 AM MUSE SYSTEM 05/08/2023 3:51 PM EDT 05/10/2023 8:11 AM EDT Radha Hollins MD ECG ORDERABLES MUSE SYSTEM * (ABNORMAL) Differential, Automated (05/08/2023 11:38 AM EDT) Neutrophil % 71.3 % [facility] Neutrophil Absolute 2.91 1.70 - 6.10 x10(3)/mc L [facility] Lymph % 19.1 % [facility] Lymphocytes Abs 0.8(L) 0.9 - 3.2 x10(3)/mc L [facility] Monocyte % 9.0 % [facility] Monocyte Abs 0.4 0.3 - 0.9 x10(3)/mc L [facility] Eos % 0.2 % [facility] Eosinophils Abs 0.0 0.0 - 0.4 x10(3)/mc L [facility] Basophil % 0.2 % [facility] Baso Absolute 0.0 0.0 - 0.1 x10(3)/mc L [facility] Immature Gran % 0.20 % [facility] Comment: Immature granulocytes(IG's)percentage and absolute count will include metamyelocytes, myelocytes, and promyelocytes. Blood smears from CBCs yielding IG's will be scanned manually for concordance. If this scan disagrees with the automated IG or if promyelocytes are noted, a manual differential will be performed. Immature Gran Absolute 0.01 0.00 - 0.04 x10(3)/mc L [facility] Blood 05/08/2023 11:3 8 AM EDT 05/08/2023 11:44 AM EDT Narrative Resulting Agency Comment Spec In Lab Lincoln Sal MD HEMATOLOGY ORDERA BLES [facility] [place] [address] * (ABNORMAL) Hemogram (05/08/2023 11:38 AM EDT) White Blood Cell 4.1 4.0 - 9.5 x10(3)/mc L [facility] Red Blood Cell 3.05(L) 4.00 - 5.21 x10(6)/mc L [facility] Hemoglobin 10.2(L) 11.7 - 15.5 g/dL [facility] Hematocrit 29.6(L) 35.7 - 45.8 % [facility] Mean Cell Volume 97.0(H) 82.6 - 94.4 fL [facility] Mean Cell Hemoglobin 33.4(H) 27.1 - 32.0 pg [facility] Mean Cell Hemoglobin Concentration 34.5 31.7 - 35.0 g/dL [facility] Platelet 136(L) 145 - 357 x10(3)/mc L [facility] RDW Standard Deviation 44.3 37.0 - 46.0 fL [facility] RDW coefficient of variation 12.6 11.5 - 14.1 % [facility] Mean Platelet Volume 9.4 7.6 - 12.9 fL [facility] NRBC% auto 0.0 % [facility] NRBC Absolute 0.000 0.000 - 0.000 x10(3)/mc L [facility] Blood 05/08/2023 11:3 8 AM EDT 05/08/2023 11:44 AM EDT Narrative Resulting Agency Comment Spec In Lab Lincoln Sal MD HEMATOLOGY ORDERA BLES [facility] [place] [address] * TSH (05/08/2023 11:38 AM EDT) Thyroid Stimulating Hormone 1.27 0.27 - 4.20 mcIU/mL [facility] Comment: Reference Interval (mcIU/mL): Females: ??First Trimester: 0.23-3.88 ??Second Trimester: 0.22-3.90 ??Third Trimester: 0.44-4.66 Blood 05/08/2023 11:3 8 AM EDT 05/08/2023 11:44 AM EDT Narrative Resulting Agency Comment Spec In Lab Enrique Chua MD CHEMISTRY ORDERABLES Performing Organization Address City/[facility] Co de Phone Number [facility] [place] [address] * (ABNORMAL) Phosphorus (05/08/2023 11:38 AM EDT) Phosphorus 4.7(H) 2.5 - 4.5 mg/dL [facility] Blood 05/08/2023 11:3 8 AM EDT 05/08/2023 11:44 AM EDT Narrative Resulting Agency Comment Spec In Lab Enrique Chua MD CHEMISTRY ORDERABLES Performing Organization Address [facility] Co de Phone Number [facility] [place] [address] * Magnesium (05/08/2023 11:38 AM EDT) Magnesium 0.76 0.69 - 1.07 mmol/L [facility] Blood 05/08/2023 11:3 8 AM EDT 05/08/2023 11:44 AM EDT Narrative Resulting Agency Comment Spec In Lab Enrique Chua MD CHEMISTRY ORDERABLES Performing Organization Address [facility] Co de Phone Number [facility] [place] [address] * (ABNORMAL) Basic Metabolic Panel (non-fasting) (05/08/2023 11:38 AM EDT) Glucose 97 65 - 199 mg/dL [facility] Comment:Diabetes: >=200 mg/d L plus symptoms Blood Urea Nitrogen 27(H) 8 - 18 mg/dL [facility] Creatinine 1.02 0.70 - 1.20 mg/dL [facility] Sodium 139 135 - 145 mmol/L [facility] Potassium 4.2 3.5 - 5.0 mmol/L [facility] Comment: Please note: ??Patients with WBC >100,000 may have falsely elevated Potassium levels. ??For accurate Potassium quantification in these patients send serum separator tube (gold top) for subsequent determinations. ??Contact the Clinical Chemistry Laboratory if there are any questions. Chloride 105 98 - 107 mmol/L [facility] Carbon Dioxide 20(L) 22 - 31 mmol/L [facility] Anion Gap 14 5 - 15 mmol/L [facility] Calcium 9.4 8.5 - 10.5 mg/dL [facility] Est Glomerular Filtration Rate 60 >=60 mL/min/1. 73 m?? [facility] Comment: This patient's estimated GFR [...] Chua MD CHEMISTRY ORDERABLES Performing Organization Address City/State/[facility] Co de Phone Number [facility] [place] [address] * ECHO COMPLETE (05/08/2023 11:02 AM EDT) EF 25 [employer] SYSTEM Anatomical Region Laterality Modality Cardiac Other 05/08/2023 10:0 3 AM EDT Narrative 05/08/2023 11:51 AM EDT ? Echocardiogram Report Name: PURNIMA THACKER ?Study Date: 05/08/2023 10:03 AMBP: 92/64 mmHg ? Patient Location: [facility] [place]^CV29^A : 1955 ? Height: 155 cm ? Account: [id number] Age: 67 yrs ? Weight: 78 kg Gender: Female ?BSA: 1.8 m2 Ordering Physician: ENRIQUE CHUA Referring Physician: MARIO ALBERTO CHIN Performed By: CHUCKIE Canchola Reason For Study: SAVR Stenosis Exam Location: [facility]. Interpretation Summary -Left ventricle is severely dilated [...] worsening stenosis. Mitral regurgitation is similar. Procedure Complete-04893. Satisfactory quality. There is normal sinus rhythm. [...] Study Date: 310:03 AMBP: 92/64 mmHg Patient Location:[facility] [place]^CV29^A : 1955 Height: 155 cm Account: [id number] Age: 67 yrs Weight: 78 kg Gender: Female BSA: 1.8 m2 Ordering Physician: ENRIQUE CHUA Referring Physician: MARIO ALBERTO CHIN Performed By: CHUCKIE Canchola Reason For Study: SAVR Stenosis Exam Location: [facility]. Interpretation Summary -Left ventricle is severely dilated [...] suggestsworsening stenosis. Mitral regurgitation is similar. Procedure Complete-01035. Satisfactory quality. There is normal sinus rhythm. 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
--- OUTSIDE RECORDS SUMMARY | 2024-04-11 14:19 | XMS_ITS | Encounter Summary ---
[place] [address] Care Team Providers Care Lumber Estimator Name Role Phone Magdalena Acosta MD Primary Care Provider [phone] Encounter Details Date Type Department Care Team (Latest Contact Info) Description 03/18/2023 2:30 PM EDT Laboratory Appointment Lab [address] [phone] Positive FRANCISCO (antinuclear antibody) Social History Tobacco [...] 4:15 PM EDT Office Visit Dermatology at [place] [address] [place] [phone] Marek Bonilla MD [address], [place] [address] documented as of this encounter Procedures Procedure [...] 2:14 PM EDT) Neutrophil % 71.2 % [facility] Neutrophil Absolute 2.26 1.70 - 6.10 x10(3)/mc L [facility] Lymph % 18.2 % [facility] Lymphocytes Abs 0.6(L) 0.9 - 3.2 x10(3)/mc L [facility] Monocyte % 9.7 % [facility] Monocyte Abs 0.3 0.3 - 0.9 x10(3)/mc L [facility] Eos % 0.3 % [facility] Eosinophils Abs 0.0 0.0 - 0.4 x10(3)/mc L [facility] Basophil % 0.6 % [facility] Baso Absolute 0.0 0.0 - 0.1 x10(3)/[facility] Immature Gran % 0.00 % [facility] Comment: Immature granulocytes(IG's)percentage and absolute count will include metamyelocytes, myelocytes, and promyelocytes. Blood smears from CBCs yielding IG's will be scanned manually for concordance. If this scan disagrees with the automated IG or if promyelocytes are noted, a manual differential will be performed. Immature Gran Absolute 0.00 0.00 - 0.04 x10(3)/[facility] Blood 03/18/2023 2:14 PM EDT 03/18/2023 2:24 PM EDT Narrative Resulting Agency Comment Spec In Lab Magdalena Peralta MD HEMATOLOGY ORDERABLE S Performing Organization Address City/State/[facility] Co de Phone Number [facility] [place] [address] * (ABNORMAL) Hemogram (03/18/2023 2:14 PM EDT) White Blood Cell 3.2(L) 4.0 - 9.5 x10(3)/[facility] Red Blood Cell 3.44(L) 4.00 - 5.21 x10(6)/[facility] Hemoglobin 11.1(L) 11.7 - 15.5 g/dL [facility] Hematocrit 32.9(L) 35.7 - 45.8 % [facility] Mean Cell Volume 95.6(H) 82.6 - 94.4 fL [facility] Mean Cell Hemoglobin 32.3(H) 27.1 - 32.0 pg [facility] Mean Cell Hemoglobin Concentration 33.7 31.7 - 35.0 g/dL [facility] Platelet 144(L) 145 - 357 x10(3)/[facility] RDW Standard Deviation 42.6 37.0 - 46.0 fL [facility] RDW coefficient of variation 12.3 11.5 - 14.1 % [facility] Mean Platelet Volume 9.4 7.6 - 12.9 fL [facility] NRBC% auto 0.0 % [facility] NRBC Absolute 0.000 0.000 - 0.000 x10(3)/mc L [facility] Blood 03/18/2023 2:14 PM EDT 03/18/2023 2:24 PM EDT Narrative Resulting Agency Comment Spec In Lab Magdalena Peralta MD HEMATOLOGY ORDERABLE S Performing Organization Address [facility] Co de Phone Number [facility] [place] [address] * (ABNORMAL) Sedimentation rate (03/18/2023 2:14 PM EDT) Sedimentation Rate Automated 68(H) 2 - 39 mm/hr [facility] Comment: Effective July 12, 2019 new capillary photometric technology has resulted in a change in reference ranges. It is recommended that each ESR result be reviewed with its own age appropriate reference range. Blood 03/18/2023 2:14 PM EDT 03/18/2023 2:24 PM EDT Narrative Resulting Agency Comment Spec In Lab Kia Viramontes DO HEMATOLOGY ORDERAB LES Performing Organization Address [facility] Co de Phone Number [facility] [place] [address] * CRP, acute inflammation (03/18/2023 2:14 PM EDT) C-Reactive Protein 3.0 <=4.9 mg/L [facility] Blood 03/18/2023 2:14 PM EDT 03/18/2023 2:24 PM EDT Narrative Resulting Agency Comment Spec In Lab Kia Viramontes DO CHEMISTRY ORDERABL ES Performing Organization Address [facility] Co de Phone Number [facility] [place] [address] * C3 Complement (03/18/2023 2:14 PM EDT) Complement C3 142 90 - 180 mg/dL [facility] Blood 03/18/2023 2:14 PM EDT 03/18/2023 2:24 PM EDT Narrative Resulting Agency Comment Spec In Lab Kia Viramontes DO CHEMISTRY ORDERABL ES Performing Organization Address [facility] de Phone Number [facility] [place] [address] * C4 Complement (03/18/2023 2:14 PM EDT) Complement C4 30 10 - 40 mg/dL [facility] Blood 03/18/2023 2:14 PM EDT 03/18/2023 2:24 PM EDT Narrative Resulting Agency Comment Spec In Lab Kia Viramontes DO CHEMISTRY ORDERABL ES Performing Organization Address [facility] de Phone Number [facility] [place] [address] * CK (03/18/2023 2:14 PM EDT) Creatine Kinase 38 0 - 160 unit/L [facility] Blood 03/18/2023 2:14 PM EDT 03/18/2023 2:24 PM EDT Narrative Resulting Agency Comment Spec In Lab Kia Viramontes DO CHEMISTRY ORDERABL ES Performing Organization Address [facility] de Phone Number [facility] [place] [address] * DNA Antibody (Double-Stranded) (03/18/2023 2:14 PM EDT) dsDNA Ab <0.6 <=15.0 IU/mL [facility] Comment: <10 negative 10-15 equivocal >15 positive This dsDNA antibody result was generated using a fluoroenzyme immunoassay on the [employer] 250 analyzer. This quantitative test is designed to detect IgG antibodies directed against double stranded DNA in human serum. The presence of antibodies that recognize dsDNA is a highly specific marker for systemic lupus erythematosus. Please note that as of 05/26/2022 that this testing is performed by the Special Chemistry Laboratory at [facility]. This change in testing location is associated with a change is testing method and reference intervals. Please review the results of this test in association with the posted reference intervals. Blood 03/18/2023 2:14 PM EDT 03/19/2023 7:19 AM EDT Narrative Resulting Agency Comment Spec In Lab Kia Viramontes DO LAB SEND OUT ORDER JODIE [facility] [place] [address] * (ABNORMAL) FRANCISCO Ab by IFA (03/18/2023 2:14 PM EDT) FRANCISCO Ab Screen Test ? Result ?Flag ??Unit ??RefValue Antinuclear Ab, HEp-2 ?Positive 1:2560 ??@ ?<1:80 (Negative) ??Substrate, S ? ADDITIONAL INFORMATION --------- ?Method: Immunofluorescence using HEp-2 cellular substrate. ??FRANCISCO Titer: ? 1:2560 ??FRANCISCO Pattern: ? Speckled ?Test Performed by: ?[facility] ?[address] [place] [address] ?Ladle Repairer: Raymond Chaudhry M.D. Ph.D.; CLIA# [id number] ([id number]) [facility] Blood 03/18/2023 2:14 PM EDT 03/18/2023 3:02 PM EDT Narrative Resulting Agency Comment Spec In Lab Kia James Wander DO CHEMISTRY ORDERABL ES [facility] [place] [address] * Comprehensive metabolic panel (non-fasting) (03/18/2023 2:14 PM EDT) Glucose 93 65 - 199 mg/dL [facility] Comment:Diabetes: >=200 mg/d L plus symptoms Blood Urea Nitrogen 18 8 - 18 mg/dL [facility] Creatinine 0.99 0.70 - 1.20 mg/dL [facility] Sodium 141 135 - 145 mmol/L [facility] Potassium 4.5 3.5 - 5.0 mmol/L [facility] Comment: Please note: ??Patients with WBC >100,000 may have falsely elevated Potassium levels. ??For accurate Potassium quantification in these patients send serum separator tube (gold top) for subsequent determinations. ??Contact the Clinical Chemistry Laboratory if there are any questions. Chloride 106 98 - 107 mmol/L [facility] Carbon Dioxide 24 22 - 31 mmol/L [facility] Anion Gap 11 5 - 15 mmol/L [facility] Calcium 10.0 8.5 - 10.5 mg/dL [facility] Protein, Total 7.3 6.1 - 8.0 g/dL [facility] Albumin 4.3 3.2 - 5.2 g/dL [facility] Aspartate Aminotransferase 26 0 - 30 unit/L [facility] Alanine Aminotransferase 11 0 - 30 unit/L [facility] Alkaline Phosphatase 91 35 - 105 unit/L [facility] Bilirubin, Total 0.4 0.2 - 1.3 mg/dL [facility] Est Glomerular Filtration Rate 62 >=60 mL/min/1. 73 m?? [facility] Comment: This patient's estimated GFR was [...] DO CHEMISTRY ORDERABL ES Performing Organization Address City/State/[facility] [place] [address] documented in this encounter Visit Diagnoses Diagnosis Positive FRANCISCO (antinuclear antibody) Other and unspecified nonspecific immunological findings documented in this encounter Care Teams Lumber Estimator Relationship Specialty Start Date End Date Magdalena Acosta MD [address] [place] [address] PCP - General Family Medicine 02/05/23 documented as of this encounter
--- OUTSIDE RECORDS SUMMARY | 2024-04-11 14:19 | XMS_ITS | Encounter Summary ---
[place] [address] Care Team Providers Care Rental Coordinator Name Role Phone Magdalena Acosta MD Primary Care Provider [phone] Encounter Details Date Type Department Care Team [...] PM EDT Office Visit Dermatology at [address] [place] [address] Marek Bonilla MD [address] [facility], [place] [address] documented as of this encounter Visit Diagnoses Not on filedocumented in this encounter Care Teams Rental Coordinator Relationship Specialty Start Date End Date Magdalena Acosta MD [address] [place] [address] PCP - General Family Medicine 02/05/23 documented as of this encounter
--- OUTSIDE RECORDS SUMMARY | 2024-04-11 14:19 | XMS_ITS | Encounter Summary ---
Author Organization [facility] Address [facility] [place] [address] Care Team Providers Care Gang Leader Name Role Phone Magdalena Acosta MD Primary Care Provider [phone] Encounter Details Date Type Department Care Team (Late st Contact Info) Description 03/29/2023 Orders Only Cardiology at [address] [phone] Ranjan Delgado MD [facility] [address] [address] Severe aortic stenosis (Primary Dx) Social History [...] 4:15 PM EDT Office Visit Dermatology at [place] [address] [place] [phone] Marek Bonilla MD [address] [facility], [place] [address] Scheduled Orders Name Type Priority [...] disorders documented in this encounter Care Teams Gang Leader Relationship Specialty Start Date End Date Magdalena Acosta MD [address] [place] [address] PCP - General Family Medicine 02/05/23 documented as of this encounter
--- OUTSIDE RECORDS SUMMARY | 2024-04-11 14:19 | XMS_ITS | Encounter Summary ---
[place] [address] Care Team Providers Care Childbirth And Infant Care Teacher Name Role Phone Magdalena Acosta MD Primary Care Provider [phone] Reason for Visit * Reason Comments Skin Lesion Encounter Details Date Type Department Care Team (Late st Contact Info) Description 04/20/2023 10:00 AM EDT Office Visit Dermatology at [address] [address] Marek Bonilla MD [address] [facility], [place] [address] Seborrheic keratosis Social History Tobacco Use Types [...] cutaneous and ocular 3. Previously told by plumber maintenance that she had corneal tears from her [...] 4:15 PM EDT Office Visit Dermatology at [place] [address] [facility] [place] [address] Marek Bonilla MD [address] [place] [address] documented as of this encounter Visit Diagnoses Diagnosis Seborrheic keratosis Other seborrheic keratosis documented in this encounter Care Teams Childbirth And Infant Care Teacher Relationship Specialty Start Date End Date Magdalena Acosta MD [address] [place] [address] PCP - General Family Medicine 02/05/23 documented as of this encounter
--- OUTSIDE RECORDS SUMMARY | 2024-04-11 14:19 | XMS_ITS | Encounter Summary ---
[place] [address] Care Team Providers Care Mail Order Sorter Name Role Phone Magdalena Acosta MD Primary Care Provider [phone] Encounter Details Date Type Department Care Team [...] PM EDT Office Visit Dermatology at [address] [place] [address] Marek Bonilla MD [address] [facility], [place] [address] documented as of this encounter Visit Diagnoses Not on filedocumented in this encounter Care Teams Mail Order Sorter Relationship Specialty Start Date End Date Magdalena Acosta MD [address] [place] [address] PCP - General Family Medicine 02/05/23 documented as of this encounter
--- OUTSIDE RECORDS SUMMARY | 2024-04-11 14:19 | XMS_ITS | Encounter Summary ---
[place] [address] Care Team Providers Care Linux Programmer Name Role Phone Magdalena Acosta MD Primary Care Provider [phone] Encounter Details Date Type Department Care Team [...] PM EDT Office Visit Dermatology at [address] [place] [address] Marek Bonilla MD [address] [facility], [place] [address] documented as of this encounter Visit Diagnoses Not on filedocumented in this encounter Care Teams Linux Programmer Relationship Specialty Start Date End Date Magdalena Acosat MD [address] [place] [address] PCP - General Family Medicine 02/05/23 documented as of this encounter
--- OUTSIDE RECORDS SUMMARY | 2024-04-11 14:19 | XMS_ITS | Encounter Summary ---
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 documented in this encounter Plan of Treatment Upcoming Encounters Date Type Department Care Team (Late st Contact Info) Description 03/01/2025 4:15 PM EDT Office Visit Dermatology at [place] [address] [facility] [place] [address] Marek Bonilla MD [address] [place] [address] documented as of this encounter Visit Diagnoses Not on filedocumented in this encounter Care Teams Bellows Charger Assembler Relationship Specialty Start Date End Date Magdalena Acosta MD [address] [place] [address] PCP - General Family Medicine 02/05/23 documented as of this encounter
--- OUTSIDE RECORDS SUMMARY | 2024-04-11 14:19 | XMS_ITS | Encounter Summary ---
[place] [address] Care Team Providers Care Biodiesel Plant Superintendent Name Role Phone Magdalena Acosta MD Primary Care Provider [phone] Reason for Visit * Reason Comments Suture / Staple Removal Encounter Details Date Type Department Care Team (Late st Contact Info) Description 02/16/2023 10:00 AM EDT Office Visit Dermatology at [place] [address] [facility] [place] [phone] Marek Bonilla MD [address] [facility], [address] A DERMATOLOGY [place], [place] [phone] Visit for suture removal Social History Tobacco [...] 4:15 PM EDT Office Visit Dermatology at [place] [address] [facility] [place] [address] Marek Bonilla MD [address] [facility] [address], [place] [address] documented as of this encounter Visit Diagnoses Diagnosis Visit for suture removal Encounter for removal of sutures documented in this encounter Care Teams Biodiesel Plant Superintendent Relationship Specialty Start Date End Date Magdalena Acosta MD [address] [place] [address] PCP - General Family Medicine 02/05/23 documented as of this encounter
--- OUTSIDE RECORDS SUMMARY | 2024-04-11 14:20 | XMS_ITS | Encounter Summary ---
Author Organization [place] [address] Care Team Providers Care Creative Producer Name Role Phone Deborah Quiroga APRN Primary Care Provider [phone] Reason for Referral * Consultation (Routine) - Closed Specialty Diagnoses / Procedures Referred By Crispin maxwell Referred To Contact Neurology Diagnoses Polyneuropathy Deborah Quiroga APRN [address] [place] [address] [facility] [address] [place] [phone] Referral ID Status Reason Start Date Expiration Date V isits Requested Visits Authorized [id number] Closed Consult, Test & Treat 10/29/2022 10/29/2023 1 1 Encounter Details Date Type Department Care Team (Latest Contact Info) Description 10/29/2022 Transcribe Orders eDH Incoming Referrals [phone] Deborah Quiroga APRN [address] [place] [address] Polyneuropathy (Primary Dx) Social History [...] 4:15 PM EDT Office Visit Dermatology at [place] [address] [place] [address] Marek Bonilla MD [address] [place] [address] Scheduled Referrals Name Type Priority Associated Diagnoses Orde r Schedule Referral to Neurology Outpatient Referral Routine Polyneuropathy Ordered: 10/29/2022 documented as of this encounter Visit Diagnoses Diagnosis Polyneuropathy- Primary Unspecified hereditary and idiopathic peripheral neuropathy documented in this encounter Care Teams Creative Producer Relationship Specialty Start Date End Date Deborah Quiroga APRN PCP - General Family Medicine 03/24/16 02/04/23 documented as of this encounter
--- OUTSIDE RECORDS SUMMARY | 2024-04-11 14:20 | XMS_ITS | Encounter Summary ---
Author Organization [facility] [place] [address] Care Team Providers Care Boilermaker Name Role Phone Ashley Quirogan Sylvia ANURAG Primary Care Provider [phone] Encounter Details Date Type Department Care Team (Late st Contact Info) Description 12/04/2016 External Results Hematology [place] [address] Teresa Dodson, RN Social History Tobacco Use [...] 4:15 PM EDT Office Visit Dermatology at [place] [address] [facility] [place] [phone] Marek Bonilla MD [address] [facility] [address] [place] [address] documented as of this encounter Procedures Procedure Name Priority Date/Time Associated Diagnosis Comments CBC (WITH DIFF) Routine 12/03/2016 11:35 AM EDT COMPREHENSIVE METABOLIC PANEL Routine 12/03/2016 11:35 AM EDT documented in this encounter Results * (ABNORMAL) Comprehensive metabolic panel (non-fasting) (12/03/2016 11:35 AM EDT) Glucose 85(Transition Lead al Lab) Blood Urea Nitrogen 11(Transition Lead al Lab) Creatinine 0.93(Exte rnal Lab) Sodium 140(Exter nal Lab) Potassium 4.2(Exter nal Lab) Chloride 104(Exter nal Lab) Calcium 10.0(Exte rnal Lab) Protein, Total 8.1(Exter nal Lab) Albumin 3.5(Exter nal Lab) Bilirubin, Total 0.25(Exte rnal Lab) Alkaline Phosphatase 96(Transition Lead al Lab) Aspartate Aminotransferase 18(Transition Lead al Lab) Alanine Aminotransferase 21(Transition Lead al Lab) Blood specimen (specimen) 12/03/2016 11:35 AM EDT Historical Provider CHEMISTRY ORDERAB LES * (ABNORMAL) CBC (with Diff) (12/03/2016 11:35 AM EDT) White Blood Cell 1.61(EXTER NAL/ABN) 4.4 - 10.8 Hemoglobin 13.0(Exter nal Lab) Hematocrit 39.8(Exter nal Lab) Platelet 248(Transition Lead al Lab) Neutrophil Absolute (ANC) - Automated 0.5(PEDIATRIC ALLERGIST AL/ABN) Blood specimen (specimen) 12/03/2016 11:35 AM EDT Historical Provider HEMATOLOGY ORDERA BLES documented in this encounter Visit Diagnoses Not on filedocumented in this encounter Care Teams Boilermaker Relationship Specialty Start Date End Date Deborah Quiroga, DIE TRIPPER PCP - General Family Medicine 03/24/16 02/04/23 documented as of this encounter
--- OUTSIDE RECORDS SUMMARY | 2024-04-11 14:20 | XMS_ITS | Encounter Summary ---
[place] [address] Care Team Providers Care Management Accounts Manager Name Role Phone Magdalena Acosta MD Primary Care Provider [phone] Reason for Visit * Reason Comments Annual Exam Encounter Details Date Type Department Care Team (Late st Contact Info) Description 02/05/2023 2:30 PM EDT Office Visit Dermatology at [address] [address] Marek Bonilla MD [address] [facility] [place] [address] Rosacea; Ocular rosacea; Nevus Social History Tobacco [...] cutaneous and ocular 2. Previously told by religious educator that she had corneal tears from her [...] PM EDT Office Visit Dermatology at [address] [phone] Marek Bonilla MD [address] [facility], [place] [address] documented as of this encounter Visit Diagnoses Diagnosis Rosacea Ocular rosacea Rosacea Nevus Benign neoplasm of skin, site unspecified documented in this encounter Care Teams Management Accounts Manager Relationship Specialty Start Date End Date Magdalena Acosta MD [address] [place] [address] PCP - General Family Medicine 02/05/23 documented as of this encounter
--- OUTSIDE RECORDS SUMMARY | 2024-04-11 14:20 | XMS_ITS | Encounter Summary ---
Author Organization [facility] Address [facility] Erika aultman [place] [address] Care Team Providers Care Face Painter Name Role Phone Deborah Quiroga APRN Primary Care Provider [phone] Reason for Visit * Consultation (Routine) - Closed Specialty Diagnoses / Procedures Referred By Contkrystle t Referred To Contact Rheumatology Diagnoses Positive FRANCISCO (antinuclear antibody) Arthralgia, unspecified joint Sandy Wu APRN [address] [place] [address] [facility] [address] [place] [address] Referral ID Status Reason Start Date Expiration Date V isits Requested Visits Authorized [id number] Closed Consult, Test & Treat PCP Updated and/or Approved 01/01/2022 01/01/2023 6 6 Encounter Details Date Type Department Care Team (Latest Contact Info) Description 01/20/2022 10:00 AM EDT Office [place] [address] Raymond Loredo MD [facility] [place] [address] Rosacea; Raynaud's phenomenon without gangrene; [...] carpal tunnel syndrome. She did not describe nelys arthritis and significant functional limitation in gait [...] over radiocarpal or ulnocarpal joints. Hands: Normal product marketing analyst and claw. SJC/TJC 0/0. Hips: Full motion, [...] can be done locally or here at [facility] that the current time is not particularly interested it seems Raymond Loredo MD documented in this encounter Plan of Treatment Upcoming Encounters Date Type Department Care Team (Late st Contact Info) Description 03/01/2025 4:15 PM EDT Office Visit Dermatology at [place] [address] [facility] [place] [address] Marek Bonilla MD [address] [place] [address] Scheduled Referrals Name Type Priority Associated Diagnoses [...] syndrome documented in this encounter Care Teams Face Painter Relationship Specialty Start Date End Date Deborah Quiroga APRN PCP - General Family Medicine 03/24/16 02/04/23 documented as of this encounter
--- OUTSIDE RECORDS SUMMARY | 2024-04-11 14:20 | XMS_ITS | Encounter Summary ---
[place] [address] Care Team Providers Care Security Developer Name Role Phone Deborah Quiroga APRN Primary Care Provider [phone] Reason for Referral * Consultation (Routine) - Closed Specialty Diagnoses / Procedures Referred By Contac t Referred To Contact Rheumatology Diagnoses Positive FRANCISCO (antinuclear antibody) Arthralgia, unspecified joint Sandy Wu APRN [address] [place] [address] [facility] [address] [place] [id number] Referral ID Status Reason Start Date Expiration Date V isits Requested Visits Authorized [id number] Closed Consult, Test & Treat PCP Updated and/or Approved 01/01/2022 01/01/2023 6 6 Encounter Details Date Type Department Care Team (Latest Contact Info) Description 01/01/2022 Transcribe Orders eDH Incoming Referrals [phone] Sandy Wu APRN [address] [place], [place] [id number] Positive FRANCISCO (antinuclear antibody); Arthralgia, unspecified joint [...] 4:15 PM EDT Office Visit Dermatology at [place] [address] [facility] [place] [address] Marek Bonilla MD [address], [place] [address] Scheduled Referrals Name Type Priority Associated Diagnoses Orde r Schedule Referral to Rheumatology Outpatient Referral Routine Positive FRANCISCO (antinuclear antibody) Arthralgia, unspecified joint Ordered: 01/01/2022 documented as of this encounter Visit Diagnoses Diagnosis Positive FRANCISCO (antinuclear antibody) Other and unspecified nonspecific immunological findings Arthralgia, unspecified joint documented in this encounter Care Teams Security Developer Relationship Specialty Start Date End Date Deborah Quiroga APRN PCP - General Family Medicine 03/24/16 02/04/23 documented as of this encounter
--- OUTSIDE RECORDS SUMMARY | 2024-04-11 14:20 | XMS_ITS | Encounter Summary ---
[place] [address] Care Team Providers Care Reclamation Engineer Name Role Phone Deborah Quiroga APRN Primary Care Provider [phone] Encounter Details Date Type Department Care Team (Late st Contact Info) Description 06/05/2021 Interpretation Only [address] [address] Deborah Quiroga LEVER TENDER [address] [address] Social History Tobacco Use Types Packs/Day Years [...] 4:15 PM EDT Office Visit Dermatology at [place] [address] [facility] [place] [address] Marek Bonilla MD [address] [facility] [place] [address] documented as of this encounter Procedures Procedure Name Priority Date/Time Associated Diagnosis Comments MAMMO SCREENING CAD AND CATRACHITO BILATERAL Routine 06/05/2021 11:42 AM EDT documented in this encounter Results * Mammo Screening Cad and Catrachito Bilateral (06/05/2021 11:42 AM EDT) PT CLASS O DH RAD ADMITDTTM DH RAD PT DH RAD INFO [id number]^EVERET T^DEBORAH^E DH RAD EXAM DESC MADDSCTO^BREAST SCREEN [...] have questions please contact the health medicare biller that requested your imaging first. ? Electronically signed by: Rocael Villatoro MD, [facility] ([phone]), at 06/05/2021 1:27 PM Narrative 06/05/2021 1:27 [...] who have questions please contactthe health medicare biller that requested your imaging first. Electronically signed by: Rocael Villatoro MD, [facility]([phone]), at 06/05/2021 1:27 PM Deborah Quiroga APRN IMG MAMMO ORDERABLE S documented in this encounter Visit Diagnoses Not on filedocumented in this encounter Care Teams Reclamation Engineer Relationship Specialty Start Date End Date Deborah Quiroga APRN PCP - General Family Medicine 03/24/16 02/04/23 documented as of this encounter
--- OUTSIDE RECORDS SUMMARY | 2024-04-11 14:20 | XMS_ITS | Encounter Summary ---
Author Organization [facility] Address [facility] [place] [address] Care Team Providers Care Senior Sales Executive Name Role Phone Deborah Quiroga APRN Primary Care Provider [phone] Encounter Details Date Type Department Care Team (Late st Contact Info) Description 06/18/2017 11:00 AM EST Office Visit Hematology [place] [address] Markel Borjas MD [facility] [address] [place] [address] Neutropenia, unspecified type Social History Tobacco Use [...] AM EST Hematology Outpatient Clinic [facility] Hematology Outpatient Consult Note CC: 60 [...] TOUCH PREP, CLOT SECTION, CORE ??BIOPSY); [OSR# [id number], COLLECTED 06/23/2016, 19 SLIDES]: ?1. ??Normocellular marrow [...] a clonal lymphoproliferative or myeloproliferative disorder (OSR# [id number]) Chromosome analysis on the marrow aspirate revealed [...] working the same job and participating in [employer] patients. Past Medical/Surgical History: 1. Leukopenia -element of neutropenia, as noted above 2. Aortic Stenosis -severe -AVR surgery 3. Hypercholesterolemia 4. Depression 5. Hypertension 6. 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 Extremities: No edema. Labs: Hgb= 13 Aayp=823 ANC= 0.6 Imaging As above - reviewed [...] 4:15 PM EDT Office Visit Dermatology at [place] [address] [place] [address] Marek Bonilla MD [address], [address] [place] [address] documented as of this encounter Visit Diagnoses Diagnosis Neutropenia, unspecified type documented in this encounter Care Teams Senior Sales Executive Relationship Specialty Start Date End Date Deborah Quiroga APRN PCP - General Family Medicine 03/24/16 02/04/23 documented as of this encounter
--- OUTSIDE RECORDS SUMMARY | 2024-04-11 14:20 | XMS_ITS | Encounter Summary ---
[place] [address] Care Team Providers Care Cable Spooler Name Role Phone Ashley Quirogan Cornelius ANURAG Primary Care Provider [phone] Reason for Visit * Reason Onset Date Comments Medical Care Coordination 07/27/2017 Encounter Details Date Type Department Care Team (Late st Contact Info) Description 07/27/2017 Telephone [place] [address] Alexandrea Greenwood RN Medical Care Coordination Social [...] clerk secretary: Injection/Infusion Referral Call placed to [facility] @ [phone] Spoke w/ SLITTING MACHINE FEEDER Services to be provided for pt are: CBC/CMP DONE Q6 MONTHS X2 STARTING NOVEMBER 2017 TECH confirmed they would provide services to pt - I CALLED PT, LM. Pt orders faxed to [phone] documented in this encounter Plan of Treatment Upcoming Encounters Date Type Department Care Team (Late st Contact Info) Description 03/01/2025 4:15 PM EDT Office Visit Dermatology at [place] [address] [facility] [place] [address] Marek Bonilla MD [address] [facility], [place] [address] documented as of this encounter Visit Diagnoses Not on filedocumented in this encounter Care Teams Cable Spooler Relationship Specialty Start Date End Date Deborah Quiroga APRN PCP - General Family Medicine 03/24/16 02/04/23 documented as of this encounter
--- OUTSIDE RECORDS SUMMARY | 2024-04-11 14:20 | XMS_ITS | Encounter Summary ---
[place] [address] Care Team Providers Care Manager Language Name Role Phone Magdalena Acosta MD Primary Care Provider [phone] Encounter Details Date Type Department Care Team [...] PM EDT Office Visit Dermatology at [address] [place] [address] Marek Bonilla MD [address] [facility], [place] [address] documented as of this encounter Visit Diagnoses Not on filedocumented in this encounter Care Teams Manager Language Relationship Specialty Start Date End Date Magdalena Acosta MD [address] [place] [address] PCP - General Family Medicine 02/05/23 documented as of this encounter
--- OUTSIDE RECORDS SUMMARY | 2024-04-11 14:20 | XMS_ITS | Encounter Summary ---
[place] [address] Care Team Providers Care Foundry Finisher Name Role Phone Deborah Quiroga APRN Primary Care Provider [phone] Encounter Details Date Type Department Care Team (Late st Contact Info) Description 06/05/2021 Interpretation Only [address] [address] Deborah Quiroga BRIM PLATER [address] [address] Social History Tobacco Use Types Packs/Day Years [...] 4:15 PM EDT Office Visit Dermatology at [place] [address] [place] [address] Marek Bonilla MD [address] [facility], [place] [address] documented as of this encounter Procedures Procedure Name Priority Date/Time Associated Diagnosis Comments MAMMO SCREENING CAD BILATERAL Routine 06/05/2021 11:42 AM EDT documented in this encounter Results * Mammo Screening Cad Bilateral (06/05/2021 11:42 AM EDT) PT CLASS O DH RAD ADMITDTTM DH RAD PT RAD INFO [id number]^EV ERETT^DEBORAH^E DH RAD EXAM DESC MADDSC^SCREEN MAMMO [...] who have questions please contact the health district manager primary care sales that requested your imaging first. ? Narrative [...] patients who have questions please contactthe health district manager primary care sales that requested your imaging first. Electronically signed by: Rocael Villatoro MD, [facility]([phone]), at 06/05/2021 1:27 PM Deborah Quiroga APRN IMGerman MAMMO ORDERABLE S documented in this encounter Visit Diagnoses Not on filedocumented in this encounter Care Teams Foundry Finisher Relationship Specialty Start Date End Date Deborah Quiroga APRN PCP - General Family Medicine 03/24/16 02/04/23 documented as of this encounter
--- OUTSIDE RECORDS SUMMARY | 2024-04-11 14:20 | XMS_ITS | Encounter Summary ---
Author Organization [facility] Address [facility] [place] [address] Care Team Providers Care Medical Numerical Control Operator Name Role Phone Ashley Quirogazac Shields APRN Primary Care Provider [phone] Reason for Referral * Consultation (Routine) - Closed Specialty Diagnoses / Procedures Referred By Contac t Referred To Contact Neurology Diagnoses Neck pain Popeye Rogers MD [facility] [place] [address] Kyra Haas MD [facility] [address] [address] Referral ID Status Reason Start Date Expiration Date V isits Requested Visits Authorized [id number] Closed Consult, Test & Treat 06/29/2022 06/29/2023 1 1 Reason for Visit * Reason Comments Neck Pain Weak in both arms, p ain and tingling in arms and hands Encounter Details Date Type Department Care Team (Late st Contact Info) Description 06/29/2022 10:20 AM EST Office Visit [place] [address] Popeye Rogers MD [facility] [place] [address] Neck pain Social History Tobacco Use Types [...] have EMG and nerve conduction studies in [place] that showed carpal tunnel syndrome. I do not have a copy of that report. documented in this encounter Plan of Treatment Upcoming Encounters Date Type Department Care Team (Late st Contact Info) Description 03/01/2025 4:15 PM EDT Office Visit Dermatology at [place] [address] [facility] [place] [address] Marek Bonilla MD [address], [place] [address] Scheduled Referrals Name Type Priority Associated Diagnoses Orde r Schedule Referral to Neurology Outpatient Referral Routine Neck pain Ordered: 06/29/2022 documented as of this encounter Visit Diagnoses Diagnosis Neck pain Cervicalgia documented in this encounter Care Teams Medical Numerical Control Operator Relationship Specialty Start Date End Date Deborah Quiroga APRN PCP - General Family Medicine 03/24/16 02/04/23 documented as of this encounter
--- OUTSIDE RECORDS SUMMARY | 2024-04-11 14:20 | XMS_ITS | Encounter Summary ---
Author Organization [facility] Address [facility] [place] [address] Care Team Providers Care Patrol Driver Name Role Phone Deborah Quiroga APRN Primary Care Provider [phone] Encounter Details Date Type Department Care Team (Late st Contact Info) Description 03/01/2020 11:30 AM EDT Office Visit [place] [address] Patrick Borjas MD [facility] [address] [place] [address] Neutropenia, unspecified type Social History Tobacco Use [...] 03/01/2020 11:30 AM EDT Hematology Outpatient Clinic [facility] Hematology Outpatient Consult Note CC: 60 [...] TOUCH PREP, CLOT SECTION, CORE ??BIOPSY); [OSR# [id number], COLLECTED 06/23/2016, 19 SLIDES]: ?1. 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 Extremities: No edema. Labs: Hgb= 12.4 Ichz=475 ANC= 2.5 Imaging As above - reviewed [...] PM EDT Office Visit Dermatology at [address] [address] Marek Bonilla MD [address] [facility], [place] [address] documented as of this encounter Visit Diagnoses Diagnosis Neutropenia, unspecified type documented in this encounter Care Teams Patrol Driver Relationship Specialty Start Date End Date Deborah Quiroga APRN PCP - General Family Medicine 03/24/16 02/04/23 documented as of this encounter
--- OUTSIDE RECORDS SUMMARY | 2024-04-11 14:20 | XMS_ITS | Encounter Summary ---
Author Organization [facility] [place] [address] Care Team Providers Care Internet Marketing Assistant Name Role Phone Deborah Quiroga APRN Primary Care Provider [phone] Encounter Details Date Type Department Care Team (Latest Contact Info) Description 07/03/2022 1:36 PM EST - 07/03/2022 11:59 PM EST Hospital Encounter [place]ematology [place] [address] Discharge Disposition: Home Social History Tobacco Use [...] 4:15 PM EDT Office Visit Dermatology at [place] [address] [place] [address] Marek Bonilla MD [address] [facility] [place] [address] documented as of this encounter Procedures Procedure Name Priority Date/Time Associated Diagnosis Comments FOLATE, SERUM Routine 07/03/2022 1:59 PM EST VITAMIN B12 Routine 07/03/2022 1:59 PM EST documented in this encounter Results * Folate, serum (07/03/2022 1:59 PM EST) Folate >20.0 4.8 - 24.2 ng/mL [facility] Blood Venous Draw / Unknown 07/03/2022 1:59 PM EST 07/03/2022 2:13 PM EST Narrative Resulting Agency Comment Spec In Lab Markel Borjas MD CHEMISTRY ORDERABL ES Performing Organization Address City/[facility]/ZIP Co de Phone Number [facility] [place] [address] * Vitamin B12 (07/03/2022 1:59 PM EST) Vitamin B12 449 232 - 1,245 pg/mL [facility] Blood Venous Draw / Unknown 07/03/2022 1:59 PM EST 07/03/2022 2:13 PM EST Narrative Resulting Agency Comment Spec In Lab Markel Borjas MD CHEMISTRY ORDERABL ES Performing Organization Address [facility] [place] [address] documented in this encounter Visit Diagnoses Not on filedocumented in this encounter Care Teams Internet Marketing Assistant Relationship Specialty Start Date End Date Deborah Quiroga APRN PCP - General Family Medicine 03/24/16 02/04/23 documented as of this encounter
--- OUTSIDE RECORDS SUMMARY | 2024-04-11 14:20 | XMS_ITS | Encounter Summary ---
Author Organization [facility] [place] [address] Care Team Providers Care Auxiliary Engineer Name Role Phone Deborah Quiroga APRN Primary Care Provider [phone] Encounter Details Date Type Department Care Team (Latest Contact Info) Description 07/03/2022 12:28 PM EST - 07/03/2022 1:35 PM EST Hospital Encounter Hematology [place] [address] Chronic idiopathic neutropenia Discharge Disposition: Home Social [...] 4:15 PM EDT Office Visit Dermatology at [place] [address] [facility] [place] [address] Marek Bonilla MD [address], [address] [place] [address] documented as of this encounter Procedures Procedure [...] (ABNORMAL) Differential, Automated (07/03/2022 12:40 PM EST) [facility] Neutrophil % 72.9 % [facility] Neutrophil Absolute 2.61 1.70 - 6.10 x10(3)/[facility] Lymph % 18.4 % [facility] Lymphocytes Abs 0.7(L) 0.9 - 3.2 x10(3)/[facility] Monocyte % 8.4 % [facility] Monocyte Abs 0.3 0.3 - 0.9 x10(3)/[facility] Eos % 0.0 % [facility] Eosinophils Abs 0.0 0.0 - 0.4 x10(3)/[facility] Basophil % 0.3 % [facility] Baso Absolute 0.0 0.0 - 0.1 x10(3)/[facility] Immature Gran % 0.00 % [facility] Comment: Immature granulocytes(IG's)percentage and absolute count will include metamyelocytes, myelocytes, and promyelocytes. Blood smears from CBCs yielding IG's will be scanned manually for concordance. If this scan disagrees with the automated IG or if promyelocytes are noted, a manual differential will be performed. Immature Gran Absolute 0.00 0.00 - 0.04 x10(3)/[facility] Blood 07/03/2022 12:4 0 PM EST 07/03/2022 1:03 PM EST Narrative Resulting Agency Comment Spec In Lab Markel Borjas MD HEMATOLOGY ORDERAB LES [facility] [place] [address] * (ABNORMAL) Hemogram (07/03/2022 12:40 PM EST) White Blood Cell 3.6(L) 4.0 - 9.5 x10(3)/[facility] Red Blood Cell 3.61(L) 4.00 [...] [facility]ORY NRBC% auto 0.0 % [facility] NRBC Absolute 0.000 0.000 - 0.000 x10(3)/mc L [facility] Blood 07/03/2022 12:4 0 PM EST 07/03/2022 1:03 PM EST Narrative Resulting Agency Comment Spec In Lab Markel Borjas MD HEMATOLOGY ORDERAB LES [facility] [place] [address] * (ABNORMAL) Comprehensive metabolic panel (non-fasting) (07/03/2022 [...] CHEMISTRY ORDERABL ES [facility] [place] [address] documented in this encounter Visit Diagnoses Diagnosis Chronic idiopathic neutropenia Other neutropenia documented in this encounter Care Teams Auxiliary Engineer Relationship Specialty Start Date End Date Deborah Quiroga APRN PCP - General Family Medicine 03/24/16 02/04/23 documented as of this encounter
--- OUTSIDE RECORDS SUMMARY | 2024-04-11 14:20 | XMS_ITS | Encounter Summary ---
[place] [address] Care Team Providers Care Agricultural Sales Representative Name Role Phone Deborah Quiroga APRN Primary Care Provider [phone] Encounter Details Date Type Department Care Team (Late st Contact Info) Description 01/09/2022 Refill Dermatology at [address] [phone] Lupe Connor RN Social History Tobacco Use [...] PM EDT Office Visit Dermatology at [address] [phone] Marek Bonilla MD [address] [facility], [place] [address] documented as of this encounter Visit Diagnoses Not on filedocumented in this encounter Care Teams Agricultural Sales Representative Relationship Specialty Start Date End Date Deborah Quiroga APRN PCP - General Family Medicine 03/24/16 02/04/23 documented as of this encounter
--- OUTSIDE RECORDS SUMMARY | 2024-04-11 14:20 | XMS_ITS | Encounter Summary ---
[place] [address] Care Team Providers Care Meter Record Clerk Name Role Phone Deborah Quiroga APRN Primary Care Provider [phone] Encounter Details Date Type Department Care Team [...] PM EDT Office Visit Dermatology at [address] [place] [address] Marek Bonilla MD [address], [place] [address] documented as of this encounter Visit Diagnoses Not on filedocumented in this encounter Care Teams Meter Record Clerk Relationship Specialty Start Date End Date Deborah Quiroga APRN PCP - General Family Medicine 03/24/16 02/04/23 documented as of this encounter
--- OUTSIDE RECORDS SUMMARY | 2024-04-11 14:20 | XMS_ITS | Encounter Summary ---
[place] [address] Care Team Providers Care Glue Specialty Supervisor Name Role Phone Ashley Quirogan Cornelius ANURAG Primary Care Provider [phone] Reason for Visit * Reason Comments Acrochordon Rosacea Encounter Details Date Type Department Care Team (Late st Contact Info) Description 12/05/2020 3:00 PM EDT Office Visit Dermatology at [address] [address] Marek Bonilla MD 580 [facility], [place] [address] Inflamed acrochordon Social History Tobacco Use Types [...] 4:15 PM EDT Office Visit Dermatology at [place] 580 [place] [address] Marek Bonilla MD [address] [facility] [place] [address] documented as of this encounter Visit Diagnoses Diagnosis Inflamed acrochordon Unspecified hypertrophic and atrophic condition of skin documented in this encounter Care Teams Glue Specialty Supervisor Relationship Specialty Start Date End Date Deborah Quiroga APRN PCP - General Family Medicine 03/24/16 02/04/23 documented as of this encounter
--- OUTSIDE RECORDS SUMMARY | 2024-04-11 14:20 | XMS_ITS | Encounter Summary ---
[place] [address] Care Team Providers Care Neonatal Nurse Practitioner Name Role Phone Deborah Quiroga ANURAG Primary Care Provider [phone] Encounter Details Date Type Department Care Team (Late st Contact Info) Description 06/18/2017 External Results Hematology [place] [address] Alexandrea Greenwood RN Neutropenia, unspecified type Social [...] 4:15 PM EDT Office Visit Dermatology at [place] [address] [place] [address] Marek Bonilla MD [address] [place] [address] documented as of this encounter Procedures Procedure [...] MD CHEMISTRY ORDERABL ES Performing Organization Address City/[facility] Co de Phone Number EXTERNAL LAB [...] type documented in this encounter Care Teams Neonatal Nurse Practitioner Relationship Specialty Start Date End Date Deborah Quiroga APRN PCP - General Family Medicine 03/24/16 02/04/23 documented as of this encounter
--- OUTSIDE RECORDS SUMMARY | 2024-04-11 14:20 | XMS_ITS | Encounter Summary ---
Author Organization [facility] Address [facility] [place] [address] Care Team Providers Care Clinical Interviewer Name Role Phone Deborah Quiroga APRN Primary Care Provider [phone] Reason for Visit * Reason Comments Follow-up Encounter Details Date Type Department Care Team (Late st Contact Info) Description 07/03/2022 1:30 PM EST Office Visit Hematology [place] [address] Markel Borjas MD [facility] [place] [address] Consuelo Sommer APRN [facility] [place] [address] Chronic idiopathic neutropenia; Dysuria Social History Tobacco [...] 07/03/2022 1:30 PM EST Hematology Outpatient Clinic [facility] Hematology Outpatient Consult Note CC: [id number] [...] TOUCH PREP, CLOT SECTION, CORE ??BIOPSY); [OSR# [id number], COLLECTED 06/23/2016, 19 SLIDES]: ?1. ??Normocellular marrow [...] a clonal lymphoproliferative or myeloproliferative disorder (OSR# [id number]) Chromosome analysis on the marrow aspirate revealed [...] Works at [employer] in [employer] department Plays competitive scrabble, and goes to [employer] Family History: No known primary marrow disorders [...] intact. Extremities: No edema. Labs: Hgb= 11.7 Wsgn=830 ANC= 2.5 Imaging As above - reviewed [...] 4:15 PM EDT Office Visit Dermatology at [place] [address] [place] [address] Marek Bonilla MD [address] [facility] [place] [address] documented as of this encounter Procedures Procedure [...] - GEN ERAL ORDERABLES Performing Organization Address [facility] de Phone Number [facility] [place] [address] * (ABNORMAL) Urinalysis Microscopic Exam (07/03/2022 2:00 PM EST) RBC, Urine 2 0 - 4 /HPF [facility] WBC, Urine 14(H) 0 - 5 /HPF [facility] Bacteria, Urine Occasional (A) None /HPF [facility] Squamous Epithelial Cells Raw Data, Urine 12(H) <=4 /HPF [facility] Hyaline Casts, Urine 2 0 - 2 /LPF [facility] Clean Catch Urine 07/03/2022 2:00 PM EST 07/03/2022 2:29 PM EST Narrative Resulting Agency Comment Spec In Lab Markel Borjas MD URINE ORDERABLES Performing Organization Address [facility] de Phone Number [facility] [place] [address] * (ABNORMAL) Urinalysis with reflex Culture (07/03/2022 2:00 PM EST) Glucose, Urine Dipstick Negative Negative mg/dL [facility] Protein, Urine Dipstick 30(A) Negative mg/dL [facility] Bilirubin, Urine Dipstick Negative Negative mg/dL [facility] Comment: Clinical correlation required for positive Urine Bilirubin results as false positive may occur with some drugs and drug related products. If a false positive is suspected a serum total bilirubin should be considered if clinically indicated. Urobilinogen, Urine Dipstick Normal Normal mg/dL [facility] pH, Urn (dipstick) 5.5 5.0 - 8.0 [facility] Blood, Urine Dipstick Negative Negative mg/dL [facility] Ketone, Urine Dipstick Trace(A) Negative mg/dL [facility] Nitrite, Urine Dipstick Negative Negative [facility] Leukocytes, Urine Dipstick Small(A) Negative [facility] Appearance, Urine Dipstick Clear Clear [facility] Specific [place] Urine Automated 1.022 1.005 - 1.030 [facility] Color, Urine Dipstick Yellow Yellow [facility] Reflex to Culture Yes [facility] Clean Catch Urine 07/03/2022 2:00 PM EST 07/03/2022 2:29 PM EST Narrative Resulting Agency Comment Spec In Lab Markel Borjas MD URINE ORDERABLES [facility] [place] [address] * (ABNORMAL) Comprehensive metabolic panel (non-fasting) (07/03/2022 [...] CHEMISTRY ORDERABL ES [facility] [place] [address] documented in this encounter Visit Diagnoses Diagnosis Chronic idiopathic neutropenia Other neutropenia Dysuria documented in this encounter Care Teams Clinical Interviewer Relationship Specialty Start Date End Date Deborah Quiroga APRN PCP - General Family Medicine 03/24/16 02/04/23 documented as of this encounter
--- OUTSIDE RECORDS SUMMARY | 2024-04-11 14:20 | XMS_ITS | Encounter Summary ---
Author Organization [facility] Address [facility] [place] [address] Care Team Providers Care Showroom Sales Consultant Name Role Phone Junaid Deborah Shields APRN Primary Care Provider [phone] Encounter Details Date Type Department Care Team (Latest Contact Info) Description 06/22/2022 10:00 AM EST Office Visit [place] [phone] Raymond Loredo MD [facility] [place] [address] Raynaud's phenomenon without gangrene; Positive FRANCISCO (antinuclear [...] be done locally or here at [facility] that the current time is not particularly [...] surgery by Dr. Rogers here at [facility]. In addition to painful dysesthesias in her [...] over radiocarpal or ulnocarpal joints. Hands: Normal drapery operator and claw. SJC/TJC 0/0. Knees: Decreased flexion [...] EDT Office Visit Dermatology at [place] [address] [address] [place] [address] Marek Bonilla MD [address] [facility] [place] [address] documented as of this encounter Visit Diagnoses Diagnosis Raynaud's phenomenon without gangrene Positive FRANCISCO (antinuclear antibody) Other and unspecified nonspecific immunological findings Primary osteoarthritis involving multiple joints Cervical disc disorder at C6-C7 level with radiculopathy documented in this encounter Care Teams Showroom Sales Consultant Relationship Specialty Start Date End Date Deborah Quiroga APRN PCP - General Family Medicine 03/24/16 02/04/23 documented as of this encounter
--- OUTSIDE RECORDS SUMMARY | 2024-04-11 14:20 | XMS_ITS | Encounter Summary ---
[place] [address] Care Team Providers Care Roustabout Hand Name Role Phone Deborah Quiroga APRN Primary Care Provider [phone] Encounter Details Date Type Department Care Team (Late st Contact Info) Description 03/04/2020 External Results H[place]ology [place] [address] Theroux, Bhumi Cornelius Social History Tobacco Use [...] 4:15 PM EDT Office Visit Dermatology at [place] [address] [place] [address] Marek Bonilla MD [address], [place] [address] documented as of this encounter Procedures Procedure [...] Provider CHEMISTRY ORDERAB LES Performing Organization Address City/[facility]/ZIP Co de Phone Number EXTERNAL LAB * [...] Provider CHEMISTRY ORDERAB LES Performing Organization Address City/[facility]/ZIP Co de Phone Number EXTERNAL LAB * [...] on filedocumented in this encounter Care Teams Roustabout Hand Relationship Specialty Start Date End Date Deborah Quiroga, CATALYST CONCENTRATION OPERATOR PCP - General Family Medicine 03/24/16 02/04/23 documented as of this encounter
--- OUTSIDE RECORDS SUMMARY | 2024-04-11 14:20 | XMS_ITS | Encounter Summary ---
Author Organization [facility] Address [facility] [place] [address] Care Team Providers Care Boat Ride Operator Name Role Phone Deborah Quiroga ANURAG Primary Care Provider [phone] Encounter Details Date Type Department Care Team (Late st Contact Info) Description 01/14/2023 Refill Dermatology at [address] [address] Lupe Connor RN Social History [...] She would like the medication called into [email or web address] in [facility]. Discussed with Dr. Bonilla and he has approved refill of the Doxycycline 50 mg take one capsule by mouth daily in the evenings dispense 30 capsules with 2 refills. Patient notified. documented in this encounter Plan of Treatment Upcoming Encounters Date Type Department Care Team (Late st Contact Info) Description 03/01/2025 4:15 PM EDT Office Visit Dermatology at [place] [address] [facility] [place] [address] Marek Bonilla MD [address], [address] [place] [address] documented as of this encounter Visit Diagnoses Not on filedocumented in this encounter Care Teams Boat Ride Operator Relationship Specialty Start Date End Date Deborah Quiroga APRN PCP - General Family Medicine 03/24/16 02/04/23 documented as of this encounter
--- OUTSIDE RECORDS SUMMARY | 2024-04-11 14:20 | XMS_ITS | Encounter Summary ---
[place] [address] Care Team Providers Care Digital Analyst Name Role Phone Deborah Quiroga APRN Primary Care Provider [phone]- [phone] Encounter Details Date Type Department Care Team [...] PM EDT Office Visit Dermatology at [address] [place] [address] Marek Bonilla MD [address], [place] [address] documented as of this encounter Visit Diagnoses Not on filedocumented in this encounter Care Teams Digital Analyst Relationship Specialty Start Date End Date Deborah Quiroga APRN PCP - General Family Medicine 03/24/16 02/04/23 documented as of this encounter
--- OUTSIDE RECORDS SUMMARY | 2024-04-11 14:20 | XMS_ITS | Encounter Summary ---
[place] [address] Care Team Providers Care Cut Press Operator Name Role Phone Deborah Quiroga APRN Primary Care Provider [phone] Encounter Details Date Type Department Care Team (Late st Contact Info) Description 11/11/2020 Refill Dermatology at [address] [phone] Taylor Malone, GENERAL ACTIVITIES THERAPIST Social History Tobacco Use Types Packs/Day Years [...] PM EDT Office Visit Dermatology at [address] [phone] Marek Bonilla MD [address] [facility] [place] [address] documented as of this encounter Visit Diagnoses Not on filedocumented in this encounter Care Teams Cut Press Operator Relationship Specialty Start Date End Date Deborah Quiroga APRN PCP - General Family Medicine 03/24/16 02/04/23 documented as of this encounter
--- OUTSIDE RECORDS SUMMARY | 2024-04-11 14:20 | XMS_ITS | Encounter Summary ---
[place] [address] Care Team Providers Care Binding Folder Machine Name Role Phone Deborah Quiroga APRN Primary Care Provider [phone]- [phone] Encounter Details Date Type Department Care Team (Late st Contact Info) Description 01/13/2021 Refill Dermatology at [address] [phone] Taylor Malone, VEHICLE FARE COLLECTOR Social History Tobacco Use Types Packs/Day Years [...] PM EDT Office Visit Dermatology at [address] [phone] Marek Bonilla MD [address] [facility], [place] [address] documented as of this encounter Visit Diagnoses Not on filedocumented in this encounter Care Teams Binding Folder Machine Relationship Specialty Start Date End Date Deborah Quiroga APRN PCP - General Family Medicine 03/24/16 02/04/23 documented as of this encounter
--- OUTSIDE RECORDS SUMMARY | 2024-04-11 14:20 | XMS_ITS | Encounter Summary ---
Author Organization [facility] [place] [address] Care Team Providers Care Hospital Pharmacist Name Role Phone Deborah Quiroga APRN Primary Care Provider [phone] Encounter Details Date Type Department Care Team (Late st Contact Info) Description 11/09/2022 11:30 AM EDT - 11/09/2022 12:30 PM EDT Surgery [place] [address] Nitesh Escobedo MD [facility] [place] [address] CARDIAC CATHETERIZATION Social History Tobacco Use Types [...] Center 02/05/2023 2:30 PM Marek Bonilla MD [facility] New Medications to be Picked Up None For questions regarding this document or issues relating to this hospitalization on the Medical Service, please contact your inpatient physician through the [facility]mond [facility] . Issues afterhours and on weekends will be handled by the Hospitalist staff on-call. * Attachments The following attachments cannot be sent through Care Everywhere. * Coronary Angiogram: Post-op (Chinese) * Right Heart Catheterization: Pulmonary Artery Catheterization: Post-op (Chinese) documented in this encounter Medications at Time of Discharge Medication Sig Dispensed Refills Start Date End Date nystatin (MYCOSTATIN) 100,000 unit/gram Powder Apply topically 2 times daily as needed. 10/22/2022 [employer] Verio test strips Strip USE DAILY 01/03/2022 [employer] Delica Plus Lancet 33 gauge Misc USE [...] MD - 11/09/2022 11:20 AM EDT . [facility] Interventional Cardiology Adult Pre-Procedure H&P Update: Cardiac Catheterization Purnima Thacker [id number] 1955 Chief Complaint: BONILLA HPI: Purnima Thacker [...] Marrero MD Interventional Cardiology 11/09/22 11:43 AM [facility] Pager: [phone] documented in this encounter Plan of Treatment Upcoming Encounters Date Type Department Care Team (Late st Contact Info) Description 03/01/2025 4:15 PM EDT Office Visit Dermatology at [place] [address] [facility] [place] [address] Marek Bonilla MD [address] [facility], [place] [address] documented as of this encounter Procedures Procedure Name Priority Date/Time Associated Diagnosis Comments CARDIAC CATHETERIZATION Routine 11/10/19 1:05 PM EDT Aortic valve stenosis, etiology of cardiac valve disease unspecified Cath Plmt Left Heart Cath & Arts W/Inj & Angio Img S&I ([id number]) 11/09/2022 11:51 AM EDT Aortic valve stenosis, etiology of cardiac valve disease unspecified EKG 12-LEAD Routine 11/09/2022 11:17 AM EDT Aortic valve stenosis, etiology of cardiac valve disease unspecified documented in this encounter Results * CARDIAC CATHETERIZATION (11/09/2022 1:05 PM EDT) Anatomical Region Laterality Modality Other Narrative 11/09/2022 2:01 PM EDT ?[facility] ? Cardiac Catheterization/Intervention Report ? Patient Name: Kirstie, Purnima M. ? Procedure Date: 11/09/2022 ? A #: [id number] ? Primary Physician: Nitesh Escobedo ? Case #: [id number] ? File Name: [id number] ? Catheterization Order Number: [id number] ? [facility] ? Final Report [place], [place] ? Patient Name: ? Purnima M. Kirstie ? ID#: ?[id number] ? : ?1955 ? Procedure Date: ? [...] Escobedo, M.D. ? Electronically Signed by: Nitesh Escobeod, M.D. ? Report Finalized: 11/09/2022 ??13:20 ? [...] interpretation Confirmed by fellow MD Anitha, Carissa ([id number]) on 11/09/2022 6:17:28 PM Confirmed by Elsa [...] Procedure), Routine 1215 (Given - Provid er: Ntiesh Escobedo MD) lidocaine (Xylocaine) 1% (10 mg/mL) [...] MD) documented in this encounter Care Teams Hospital Pharmacist Relationship Specialty Start Date End Date Deborah Quiroga, PICKLE CUTTER PCP - General Family Medicine 03/24/16 02/04/23 documented as of this encounter
--- OUTSIDE RECORDS SUMMARY | 2024-04-11 14:20 | XMS_ITS | Encounter Summary ---
Author [place] [address] Care Team Providers Care President Sales And Marketing Name Role Phone Junaid, Deborah Shields APRN Primary Care Provider [phone] Encounter Details Date Type Department Care Team (Late st Contact Info) Description 10/20/2016 11:20 AM EDT Office [place] [phone] Alirio Esparza MD S/P AVR Social History [...] should continue to see Dr. Burrell, her business division chair at [facility]. cc: Dr. Burrell documented in this encounter Plan of Treatment Upcoming Encounters Date Type Department Care Team (Late st Contact Info) Description 03/01/2025 4:15 PM EDT Office Visit Dermatology at [place] [address] [facility] [place] [phone] Marek Bonilla MD [address] [facility], [place] [address] documented as of this encounter Visit Diagnoses Diagnosis S/P AVR Heart valve replaced by other means documented in this encounter Care Teams President Sales And Marketing Relationship Specialty Start Date End Date Deborah Quiroga APRN PCP - General Family Medicine 03/24/16 02/04/23 documented as of this encounter
--- OUTSIDE RECORDS SUMMARY | 2024-04-11 14:20 | XMS_ITS | Encounter Summary ---
[place] [address] Care Team Providers Care Final Block Press Operator Name Role Phone Ashley Quirogazac Shields APRN Primary Care Provider [phone] Reason for Visit * Reason Comments Annual Exam Encounter Details Date Type Department Care Team (Late st Contact Info) Description 01/09/2022 3:15 PM EDT Office Visit Dermatology at [address] [address] Marek Bonilla MD [address] [facility], [address] DERMATOLOGY [place], [place] [phone] Rosacea Social History Tobacco Use Types Packs/Day [...] cutaneous and ocular 2. 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 We will call this into [facility] in [place] 3. Continue metronidazole 0.75% gel applying every other day after washing as needed. We will give her 45 g with 5 refills. 4. Return to clinic in a year for repeat check CC: Deborah Quiroga APRN documented in this encounter Plan of Treatment Upcoming Encounters Date Type Department Care Team (Late st Contact Info) Description 03/01/2025 4:15 PM EDT Office Visit Dermatology at [place] [address] [facility] [place] [address] Marek Bonilla MD [address] [facility], [place] [address] documented as of this encounter Visit Diagnoses Diagnosis Rosacea documented in this encounter Care Teams Final Block Press Operator Relationship Specialty Start Date End Date Deborah Quiroga APRN PCP - General Family Medicine 03/24/16 02/04/23 documented as of this encounter
--- OUTSIDE RECORDS SUMMARY | 2024-04-11 14:20 | XMS_ITS | Encounter Summary ---
Author Organization [facility] Address [facility] [place] [address] Care Team Providers Care Quality Auditor Name Role Phone Deborah Quiroga ANURAG Primary Care Provider [phone] Encounter Details Date Type Department Care Team (Late Contact Info) Description 02/07/2020 Telephone Hematology [place] [address] Ellen Rios RN Social History Tobacco Use [...] 02/07/2020 12:59 PM EDT Message received from executive secretary social welfare: Injection/Infusion Referral Services to be provided for pt are: CBC only at [facility]- Pt will go by 02/27 Orders faxed to [phone]). Spoke with pt. She will call [facility] directly to schedule a time that works for her. documented in this encounter Plan of Treatment Upcoming Encounters Date Type Department Care Team (Late Contact Info) Description 03/01/2025 4:15 PM EDT Office Visit Dermatology at [address] [address] Marek Bonilla MD [address], [place] [address] documented as of this encounter Visit Diagnoses Not on filedocumented in this encounter Care Teams Quality Auditor Relationship Specialty Start Date End Date Deborah Quiroga APRN PCP - General Family Medicine 03/24/16 02/04/23 documented as of this encounter
--- OUTSIDE RECORDS SUMMARY | 2024-04-11 14:20 | XMS_ITS | Encounter Summary ---
[place] [address] Care Team Providers Care Ruby Developer Name Role Phone Deborah Quiroga APRN Primary Care Provider Encounter Details Date Type Department Care Team (Late st Contact Info) Description 07/21/2017 Orders Only Hematology [place] [address] Alexandrea Greenwood RN Other neutropenia Social History [...] 4:15 PM EDT Office Visit Dermatology at [place] [address] [place] [address] Marek Bonilla MD [address], [place] [address] documented as of this encounter Visit Diagnoses Diagnosis Other neutropenia documented in this encounter Care Teams Ruby Developer Relationship Specialty Start Date End Date Deborah Quiroga APRN PCP - General Family Medicine 03/24/16 02/04/23 documented as of this encounter
--- OUTSIDE RECORDS SUMMARY | 2024-04-11 14:20 | XMS_ITS | Encounter Summary ---
[place] [address] Care Team Providers Care It Consulting Manager Name Role Phone Ashley Quirogan Cornelius ANURAG Primary Care Provider [phone] Reason for Visit * Reason Comments Skin Check Encounter Details Date Type Department Care Team (Late st Contact Info) Description 11/11/2020 10:45 AM EDT Office Visit Dermatology at [address] [place] [address] Marek Bonilla MD [address] [facility], [address] [place] DERMATOLOGY [place], [place] [id number] Rosacea; Acrochordon Social History Tobacco Use Types [...] Discussed the possibility of getting this through [facility] or from the [facility] pharmacy if necessary. She has not yet [...] 4:15 PM EDT Office Visit Dermatology at [place] [address] [facility] [place] [address] Marek Bonilla MD [address] [facility], [place] [address] documented as of this encounter Visit Diagnoses Diagnosis Rosacea Acrochordon Unspecified hypertrophic and atrophic condition of skin documented in this encounter Care Teams It Consulting Manager Relationship Specialty Start Date End Date Deborah Quiroga APRN PCP - General Family Medicine 03/24/16 02/04/23 documented as of this encounter
--- OUTSIDE RECORDS SUMMARY | 2024-04-11 14:20 | XMS_ITS | Encounter Summary ---
Author Organization Formerly [facility] Address [facility] [place] [address] Care Team Providers Care Access Director Name Role Phone Junaid Deborah Shields APRN Primary Care Provider [phone] Reason for Visit * Reason Comments Schedule Office Case Pain right leg Encounter Details Date Type Department Care Team (Late st Contact Info) Description 12/11/2016 9:00 AM EDT Office Visit [place] [address] [facility] [address] HEMATOLOGY [place] [address] Neutropenia, unspecified type Social History Tobacco Use [...] 12/11/2016 9:00 AM EDT Hematology Outpatient Clinic [facility] Hematology Outpatient [...] TOUCH PREP, CLOT SECTION, CORE ??BIOPSY); [OSR# [id number], COLLECTED 06/23/2016, 19 SLIDES]: ?1. 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 Extremities: No edema. Labs: Hgb= 13 Lqym=289 ANC= 0.5 Imaging As above - reviewed [...] 4:15 PM EDT Office Visit Dermatology at [place] [address] [place] [phone] Marek Bonilla MD [address] [facility], [place] [address] documented as of this encounter Results * (ABNORMAL) CBC (with Diff) (06/11/2017 1:19 PM EST) Pathologist [facility] White Blood Cell 2.28(EXTER NAL/ABN) [...] type documented in this encounter Care Teams Access Director Relationship Specialty Start Date End Date Deborah Quiroga, HOSTAGE NEGOTIATOR PCP - General Family Medicine 03/24/16 02/04/23 documented as of this encounter
--- OUTSIDE RECORDS SUMMARY | 2024-04-11 14:20 | XMS_ITS | Encounter Summary ---
[place] [address] Care Team Providers Care Shingle Carrier Name Role Phone Deborah Quiroga APRN Primary Care Provider [phone]- [phone] Encounter Details Date Type Department Care Team (Late st Contact Info) Description 06/05/2021 Interpretation Only [address] [address] Deborah Quiroga BILLBOARD ERECTOR HELPER [address] [id number] Social History Tobacco Use Types Packs/Day Years [...] EDT Office Visit Dermatology at [place] [address] [facility] [place] [address] Marek Bonilla MD 580 [facility], [place] [address] documented as of this encounter Procedures Procedure Name Priority Date/Time Associated Diagnosis Comments DXA CENTRAL SPINE, HIP, AND/OR WHOLE BODY (GENERIC) Routine 06/05/2021 11:58 AM EDT documented in this encounter Results * DXA Central Spine, Hip, and/or Whole Body (Generic) (06/05/2021 11:58 AM EDT) PT CLASS O RAD ADMITDTTM RAD PT RAD INFO [id number]^E VERETT^DEBORAH ^E RAD EXAM DESC XDXAC^DEXA SCAN AXIAL^RIS [facility] Anatomical Region Laterality Modality C-spine, Hip [...] who have questions please contact the health customer care voice consultant that requested your imaging first. ? Electronically signed by: Rocael Villatoro MD, [facility] ([phone]), at 06/05/2021 12:00 PM Narrative 06/05/2021 12:00 [...] patients who have questions please contactthe health customer care voice consultant that requested your imaging first. Deborah Quiroga APRN IMGerman DEXA ORDERABLES documented in this encounter Visit Diagnoses Not on filedocumented in this encounter Care Teams Shingle Carrier Relationship Specialty Start Date End Date Deborah Quiroga APRN PCP - General Family Medicine 03/24/16 02/04/23 documented as of this encounter
--- OUTSIDE RECORDS SUMMARY | 2024-04-11 14:20 | XMS_ITS | Encounter Summary ---
[place] [address] Care Team Providers Care Goodyear Welter Name Role Phone Deborah Quiroga APRN Primary Care Provider [phone]- [phone] Encounter Details Date Type Department Care Team [...] PM EDT Office Visit Dermatology at [address] [place] [address] Marek Bonilla MD [address], [place] [address] documented as of this encounter Visit Diagnoses Not on filedocumented in this encounter Care Teams Goodyear Welter Relationship Specialty Start Date End Date Deborah Quiroga APRN PCP - General Family Medicine 03/24/16 02/04/23 documented as of this encounter
--- OUTSIDE RECORDS SUMMARY | 2024-04-11 14:20 | XMS_ITS | Encounter Summary ---
[place] [address] Care Team Providers Care Turpentiner Name Role Phone Deborah Quiroga APRN Primary Care Provider [phone] Encounter Details Date Type Department Care Team (Latest Contact Info) Description 10/14/2016 - 10/14/2016 11:59 PM EDT Hospital Encounter [place] [phone] Alirio Esparza MD Pain Discharge Disposition: Home [...] 4:15 PM EDT Office Visit Dermatology at [place] [address] [place] [address] Marek Bonilla MD [address] [address] [address], [place] [address] documented as of this encounter Procedures Procedure Name Priority Date/Time Associated Diagnosis Comments FILM LIBRARY STORAGE ONLY DX CHEST Routine 10/14/2016 12:00 AM EDT Pain documented in this encounter Results * Film Library- Storage Only DX Chest (10/14/2016 12:00 AM EDT) Narrative [facility] - 10/14/2016 5:16 PM EDT This exam is for storage only and is auto-finalizing. Alirio Esparza MD IMG FILM LIBRARY OR DERABLES [place], [place] documented in this encounter Visit Diagnoses Diagnosis Pain Generalized pain documented in this encounter Care Teams Turpentiner Relationship Specialty Start Date End Date Deborah Quiroga APRN PCP - General Family Medicine 03/24/16 02/04/23 documented as of this encounter
--- OUTSIDE RECORDS SUMMARY | 2024-04-11 14:20 | XMS_ITS | Encounter Summary ---
Author Organization [facility] [place] [address] Care Team Providers Care Basket Mender Name Role Phone Deborah Quiroga APRN Primary Care Provider [phone] Encounter Details Date Type Department Care Team (Late st Contact Info) Description 11/02/2022 Orders Only [place] [address] Emily Lyons PA [facility] [place] [address] Aortic valve stenosis, etiology of cardiac valve [...] PM EDT Office Visit Dermatology at [place] [address] [place] [address] Marek Bonilla MD [address] [facility] [address] [address], [place] [address] documented as of this encounter Visit Diagnoses Diagnosis Aortic valve stenosis, etiology of cardiac valve disease unspecified documented in this encounter Care Teams Basket Mender Relationship Specialty Start Date End Date Deborah Quiroga APRN PCP - General Family Medicine 03/24/16 02/04/23 documented as of this encounter
--- OUTSIDE RECORDS SUMMARY | 2024-04-11 14:20 | XMS_ITS | Encounter Summary ---
[place] [address] Care Team Providers Care English Language Learner Tutor Name Role Phone JunaidDeborah APRN Primary Care Provider [phone] Reason for Visit * Reason Comments Follow-up Encounter Details Date Type Department Care Team (Late st Contact Info) Description 01/10/2021 4:30 PM EDT Office Visit Dermatology at [place] 580 [facility] [place] [address] Marek Bonilla MD 580 [facility], TODD A DERMATOLOGY [place], [place] [phone] Rosacea Social History Tobacco Use Types Packs/Day [...] cutaneous and ocular 2. Previously told by transcript evaluator that she had corneal tears from her [...] 3 refills. Will call this in her [facility] in [place] 3. Continue metronidazole 0.75% gel applying once [...] PM EDT Office Visit Dermatology at [address] [address] Marek Bonilla MD [address] [facility], [place] [address] documented as of this encounter Visit Diagnoses Diagnosis Rosacea documented in this encounter Care Teams English Language Learner Tutor Relationship Specialty Start Date End Date Deborah Quiroga APRN PCP - General Family Medicine 03/24/16 02/04/23 documented as of this encounter
--- OUTSIDE RECORDS SUMMARY | 2024-04-11 14:20 | XMS_ITS | Encounter Summary ---
Author Organization [facility] Address [facility] [place] [address] Care Team Providers Care Injection Wax Molder Name Role Phone Deborah Quiroga APRN Primary Care Provider [phone] Encounter Details Date Type Department Care Team (Late st Contact Info) Description 02/06/2020 Orders Only Hematology [place] [address] Markel Borjas MD [facility] [address] HEMATOLOGY [place] [address] Neutropenia, unspecified type Social History Tobacco Use [...] 4:15 PM EDT Office Visit Dermatology at [place] 580 [facility] [place] [address] Marek Bonilla MD [address], [place] [address] documented as of this encounter Visit Diagnoses Diagnosis Neutropenia, unspecified type documented in this encounter Care Teams Injection Wax Molder Relationship Specialty Start Date End Date Deborah Quiroga APRN PCP - General Family Medicine 03/24/16 02/04/23 documented as of this encounter
--- OUTSIDE RECORDS SUMMARY | 2024-04-11 14:20 | XMS_ITS | Encounter Summary ---
Author Organization [place] [address] Care Team Providers Care Barrel Painter Name Role Phone Junaid Deborah Shields APRN Primary Care Provider [phone] Encounter Details Date Type Department Care Team (Latest Contact Info) Description 11/09/2022 10:37 AM EDT - 11/09/2022 4:53 PM EDT Hospital Encounter [place] [address] Nitesh Escobedo MD [facility] [place] [address] Aortic valve stenosis, etiology of cardiac valve [...] Center 02/05/2023 2:30 PM Marek Bonilla MD [facility] New Medications to be Picked Up None For questions regarding this document or issues relating to this hospitalization on the Medical Service, please contact your inpatient physician through the [facility] Equine Pharmacology Technician . Issues afterhours and on weekends will be handled by the Hospitalist staff on-call. * Attachments The following attachments cannot be sent through Care Everywhere. * Coronary Angiogram: Post-op (Amharic) * Right Heart Catheterization: Pulmonary Artery Catheterization: Post-op (Amharic) documented in this encounter Medications at Time [...] MD - 11/09/2022 11:20 AM EDT . [facility] Interventional Cardiology Adult Pre-Procedure H&P Update: Cardiac Catheterization Purnima Thacker [id number] 1955 Chief Complaint: BONILLA HPI: Purnima Thacker [...] Marrero MD Interventional Cardiology 11/09/22 11:43 AM [facility] Pager: [phone] documented in this encounter Plan of Treatment Upcoming Encounters Date Type Department Care Team (Late st Contact Info) Description 03/01/2025 4:15 PM EDT Office Visit Dermatology at [place] [address] [facility] [place] [address] Marek Bonilla MD [address], [place] [address] documented as of this encounter Procedures Procedure Name Priority Date/Time Associated Diagnosis Comments CARDIAC CATHETERIZATION Routine 11/10/19 1:05 PM EDT Aortic valve stenosis, etiology of cardiac valve disease unspecified Cath Plmt Left Heart Cath & Arts W/Inj & Angio Img S&I ([id number]) 11/09/2022 11:51 AM EDT Aortic valve stenosis, etiology of cardiac valve disease unspecified EKG 12-LEAD Routine 11/09/2022 11:17 AM EDT Aortic valve stenosis, etiology of cardiac valve disease unspecified documented in this encounter Results * CARDIAC CATHETERIZATION (11/09/2022 1:05 PM EDT) Anatomical Region Laterality Modality Other Narrative 11/09/2022 2:01 PM EDT ?[facility] ? Cardiac Catheterization/Intervention Report ? Patient Name: Purnima Thacker. ? Procedure Date: 11/09/2022 ? A #: [id number] ? Primary Physician: Nitesh Escobedo ? Case #: [id number] ? File Name: [id number] ? Catheterization Order Number: [id number] ? [facility] ? Final Report [place], [place] ? Patient Name: ? Purnima M. Kirstie ? ID#: ?[id number] ? : ?1955 ? Procedure Date: ? [...] was designated as ASA Class III. The [facility] clinical frailty scale ?is 4: Vulnerable. [...] (Bezet) 457 ms MUSE SYSTEM Calculated P [place] 44 degrees MUSE SYSTEM Calculated R [place] 33 degrees MUSE SYSTEM Calculated T [place] 30 degrees MUSE SYSTEM INTERPRETATION Sinus rhythm Occasional Premature ventricular complexes Otherwise normal ECG When compared with ECG of 21-SEP-2016 12:26, Premature ventricular complexes are now Present VA interval has decreased Nonspecific T wave abnormality has replaced inverted T waves in Inferior leads I personally reviewed the tracing and edited the fellows interpretation Confirmed by fellow MD Welsh Hanyuan ([id number]) on 11/09/2022 6:17:28 PM Confirmed by Elsa [...] MD) documented in this encounter Care Teams Barrel Painter Relationship Specialty Start Date End Date Deborah Quiroga, EYELET ROW MARKER PCP - General Family Medicine 03/24/16 02/04/23 documented as of this encounter
--- OUTSIDE RECORDS SUMMARY | 2024-04-11 14:20 | XMS_ITS | Encounter Summary ---
Author Organization [facility] [place] [address] Care Team Providers Care Transportation Department Supervisor Name Role Phone Ashley Quirogan [place] ANURAG Primary Care Provider [phone] Reason for Visit * Reason Onset Date Comments Results 12/03/2016 Encounter Details Date Type Department Care Team (Late Contact Info) Description 12/03/2016 Telephone Hematology [place] [address] Yudith Valentine RN Results Social History Tobacco [...] EDT RN received call from Maddy at [facility] reporting critical WBC at 1.61, and ANC of 0.5. She will fax the full results to this office for medical accounting clerk notified DR Borjas of above results documented in this encounter Plan of Treatment Upcoming Encounters Date Type Department Care Team (Late st Contact Info) Description 03/01/2025 4:15 PM EDT Office Visit Dermatology at [address] [address] Marek Bonilla MD [address] [facility] [facility] [address], [place] [address] documented as of this encounter Visit Diagnoses Not on filedocumented in this encounter Care Teams Transportation Department Supervisor Relationship Specialty Start Date End Date Deborah Quiroga APRN PCP - General Family Medicine 03/24/16 02/04/23 documented as of this encounter
--- OUTSIDE RECORDS SUMMARY | 2024-04-11 14:20 | XMS_ITS | Encounter Summary ---
[place] [address] Care Team Providers Care Technical Support Agent Name Role Phone Deborah Quiroga APRN Primary Care Provider Encounter Details Date Type Department Care Team (Late st Contact Info) Description 06/17/2022 Ancillary Procedure [place] [phone] Deborah Quiroga, BIOMETRICS CONSULTANT [address] [address] Social History Tobacco Use Types Packs/Day Years [...] EDT Office Visit Dermatology at [place] 580 [facility] [place] [address] Marek Bonilla MD [address] [facility], [place] [address] documented as of this encounter Procedures Procedure [...] FILM LIBRARY OR DERABLES Performing Organization Address City/State/[facility] Co de Phone Number [place], [place] documented in this encounter Visit Diagnoses Not on filedocumented in this encounter Care Teams Technical Support Agent Relationship Specialty Start Date End Date Deborah Quiroga APRN PCP - General Family Medicine 03/24/16 02/04/23 documented as of this encounter
--- OUTSIDE RECORDS SUMMARY | 2024-04-11 14:20 | XMS_ITS | Encounter Summary ---
Author Organization [facility] [place] [address] Care Team Providers Care Finisher Plate Name Role Phone Deborah Quiroga APRN Primary Care Provider [phone] Encounter Details Date Type Department Care Team (Late st Contact Info) Description 06/08/2022 Ancillary Procedure [place] [phone] Deborah Quiroga, DOCUMENT MANAGEMENT ANALYST [address] [address] Social History Tobacco Use Types Packs/Day Years [...] 4:15 PM EDT Office Visit Dermatology at [place] 580 [facility] [place] [address] Marek Bonilla MD 580 [facility], [place] [address] documented as of this encounter Procedures Procedure [...] [facility] Co de Phone Number [place], [place] documented in this encounter Visit Diagnoses Not on filedocumented in this encounter Care Teams Finisher Plate Relationship Specialty Start Date End Date Deborah Quiroga APRN PCP - General Family Medicine 03/24/16 02/04/23 documented as of this encounter
--- OUTSIDE RECORDS SUMMARY | 2024-04-11 14:21 | XMS_ITS | Encounter Summary ---
[place] [address] Care Team Providers Care Director Of Knowledge Management Name Role Phone Deborah Quiroga ANURAG Primary Care Provider [phone] Encounter Details Date Type Department Care Team (Late st Contact Info) Description 09/11/2016 Orders Only [place] [address] Alexandrea Greenwood RN Social History [...] the original note were not included. N [facility] HEM ONC [facility] [phone] Date: 09/11/16 Patient Name: Purnima Thacker : 1955 Diagnosis: Neutropenia Referral to [site]: [facility] Orders: ? Growth factor: [x] Neulasta 6mg SQ injection x 1 on 09/16/16 Signature: Markel Borjas MD beeper # [phone] Co-signature [if needed]: documented in this encounter Plan of Treatment Upcoming Encounters Date Type Department Care Team (Late st Contact Info) Description 03/01/2025 4:15 PM EDT Office Visit Dermatology at [place] [address] [facility] [place] [address] Marek Bonilla MD [address], [place] [address] documented as of this encounter Procedures Procedure Name Priority Date/Time Associated Diagnosis Comments TRANSESOPHAGEAL ECHOCARDIOGRAM (GAVINO) Routine 09/22/2016 documented in this encounter Results * Transesophageal Echocardiogram (GAVINO) (09/22/2016) Anatomical Region Laterality Modality Other 09/22/2016 Narrative 09/22/2016 8:30 AM EST Procedure: ?Transesophageal Echocardiogram Patient: ?ANDREW ECHOLS M ? (Age): 1955(61y) Med Rec#: ? [id number] ?Sex: ?M ? Site Loc: ? [facility] ?Ht / Wt: ??(cm)/ (kg) ? Pt. Loc: ?OR ? Study Date: ?? 09/21/2016 ?Pt. Type: Tape: ? Referring: Alirio Francisco Reading: Henrik Yarbrough ([id number]) Amphibian Crewmember: Jacobo Patel ([id number]) Interpreting Fellow: Jacobo Patel ([id number]) Diagnosis: *Aortic valve disorders (424.1) CPT Codes: *Echo GAVINO Full (14972) Indication: ?? AVR for severe Rhythm: ? [...] ? Mid-Inferior ?Normal ? Mid-Inferoseptal ?Normal ? [place]-Septal ? Normal ? [place]-Anterior ? Normal ? [place]-Lateral ?Normal ? [place]-Inferior ? Normal ? [place]-Tip ?Normal ? This report has been electronically signed by: Henrik Yarbrough M.D. ? 09/22/2016 08:30:41 Images reviewed and interpretation verified [facility] Cardiac Ultrasound [facility] Procedure Note Henrik Yarbrough MD - 09/22/2016 Procedure: Transesophageal Echocardiogram Patient: ANDREW Mejias (Age): 1955(61y) Med Rec#: [id number] Sex: M Site Loc: [facility] Ht / Wt: (cm)/ (kg) Pt. Loc: OR Study Date: 09/21/2016 Pt. Type: Tape: Referring: Alirio Francisco Reading: Henrik Yarbrough ([id number]) Amphibian Crewmember: Jacobo Patel ([id number]) Interpreting Fellow: Jacobo Patel ([id number]) Diagnosis: *Aortic valve disorders (424.1) CPT Codes: *Echo GAVINO Full (61011) Indication: AVR for severe Rhythm: Sinus SUMMARY: [...] Normal Mid-Posterolateral Normal Mid-Inferior Normal Mid-Inferoseptal Normal [place]-Septal Normal [place]-Anterior Normal [place]-Lateral Normal [place]-Inferior Normal [place]-Tip Normal This report has been electronically signed by: Henrik Yarbrough M.D. 09/22/2016 08:30:41 Images reviewed and interpretation verified [facility] Card[facility]trasound [facility] Unknown ECHO ORDERABLES documented in this encounter Visit Diagnoses Not on filedocumented in this encounter Care Teams Director Of Knowledge Management Relationship Specialty Start Date End Date Deborah Quiroga APRN PCP - General Family Medicine 03/24/16 02/04/23 documented as of this encounter
--- OUTSIDE RECORDS SUMMARY | 2024-04-11 14:21 | XMS_ITS | Encounter Summary ---
[place] [address] Care Team Providers Care Hydraulic Barker Operator Name Role Phone Ashley Quirogazac Shields APRN Primary Care Provider [phone] Reason for Visit * Auth/Cert Specialty Diagnoses / Procedures Referred By Crispin t Referred To Contact Diagnoses Aortic stenosis Procedures PRO REPLACE AORT VALV, PROSTH VALV @REPLACE AORTIC VALVE, OPEN, W\CPB, W\PROSTHETIC VALVE (WRVU 41.32) Referral ID Status Reason Start Date Expiration Date Visits Re quested Visits Authorized [id number] 1 1 Encounter Details Date Type Department Care Team (Late st Contact Info) Description 09/21/2016 7:30 AM EST - 09/21/2016 12:04 PM EST [place] [address] Alirio Esparza MD @REPLACE AORTIC VALVE, OPEN, [...] Patient Age: 61 y.o. Birthdate: 1955 Language: Spanish Race: White Ethnicity: Not nor Admit Date: 09/21/2016 Discharge Date: 09/25/2016 Attending Physician: Alirio Esparza MD Follow-up Recommendations for Providers: Please continue routine management of cardiovascular risk factors including blood pressure, lipids,glucose, etc. Please note any changes to medications. Patient to follow-up with PCP, Deborah Quiroga APRN, in 1-2 weeks. Patient to follow-up with Coding File Clerk, Dr. Antelmo Burrell, in two weeks. Patient to follow-up with Cardiac Surgery, Dr. lAirio Esparza, to be scheduled for before 10/19/2016, with CXR, EKG, and Echo. Inpatient Provider Contact Information: [facility] [place] of [place]iac [place] [facility] [place] [phone] FA[place] [phone] Discharge Diagnoses (Hospital Problems) Primary Diagnoses: Secondary [...] 41.32) performed by Alirio Esparza MD at [facility] MAIN OR ??? Pro aortoplas for supravalv sten N/A 09/21/2016 @AORTOPLASTY FOR SUPRAVALVULAR STENOSIS (WRVU 29.33) performed by Alirio Esparza MD at [facility] MAIN OR Prior To Admission [...] Hospital Course: Purnima Thacker was admitted to [facility] on 09/21/2016 via the Same [...] Alirio Esparza and/or the Cardiac Surgery Physician Editor News Team may be reached at . Antibiotic prophylaxis: You will need to take antibiotics prior to many invasive tests and treatments, such as dental cleaning, which should be done every 6 months. Your primary care physician or your dentist can prescribe this medication. Please refer to the card with the [place] [employer] Guidelines for more information. You have been provided with 3 copies of this card. Keep one for your self. Give one to your primary care physician and one to your dentist. Please refer to the [place] Heart [employer] Guidelines for more information. Good [...] Dr. Alirio Jones. You may use a [place] Track or treadmill but avoid any pulling [...] friends, go to a movie, go to yarsani, etc. Heavy activities: No hunting, skiing, jogging, [...] should resume a low fat, low cholesterol, [place] Heart Association Diet. Driving: No driving until [...] outpatient Phase 2 Cardiac Rehabilitation at [facility]. The patient agrees to a referral to this program. The referral will be sent at discharge and the patient should be contacted by the program within 1- 2 weeks from discharge. Future Appointments and Orders Future Appointments Provider Department Dept Phone 11/20/2016 11:30 AM Markel Borjas MD [facility] [phone] Future Orders Complete By Expires Echocardiogram Transthoracic([facility]) [LRG462 Custom] 10/18/2016 (Approximate) 09/18/2017 Process Instructions: If the Echocardiogram is to be PERFORMED in a [facility] location other than [facility]--STOP and order [id number], Echocardiogram South/External. Scheduling Instructions: Questions: Is a Bubble Study requested?: No Does the patient have Congenital Heart Disease?: No Does patient require sedation?: None GA rationale: Should this service be billed to the research sponsor?: EKG 12 Lead [EKG1 Custom] 10/18/2016 (Approximate) 09/25/2017 Process Instructions: Scheduling Instructions: Questions: Which [facility] location will this be performed?: [place] Is a rhythm strip needed?: No If EKG Reason is Pre-op Evaluation, indicate diagnosis for surgery.: Should this service be billed to the research sponsor?: XR Chest PA & Lateral (Generic) [85084 [id number] Custom] 10/18/2016 (Approximate) 09/25/2017 Process Instructions: Scheduling Instructions: Questions: Where will study be performed?: [facility]- Radiology Portable exam?: No Reason for exam and clinical history: s/p AVReplacement, patch annuloplasty 1 month f/u Other pertinent information: Stat read required?: Date of injury if applicable: Requested Time: Referral to Cardiac Rehab [QLZ834 Custom] As directed Process Instructions: If no progress note charted, please enter Clinical details in comments. Scheduling Instructions: Questions: My question or request is: s/p AVR. Cardiac rehab at [facility] Referral to Home Health - at DISCHARGE [PHY1497 CPT(R)] As directed Process Instructions: Scheduling Instructions: Comments: DOCUMENTATION FOR VNA SERVICES (INCLUDING THOSE PATIENTS WITH MEDICARE COVERAGE REQUIRING HOME VNA SERVICES AND/OR HOSPICE SERVICES) PATIENT'S LOCATION: Purnimakary Galleg[address] [address] (home) No relevant phone numbers on file. Audio Experience Expert's Name: self In discussion with the attending physician, it is certified that this patient is under their care and that they, or a Nurse Practitioner, or Physician Editor News who is working directly with them, hada [...] for services as follows: HOME HEALTH AGENCY: [facility] PHONE: [phone] FAX: [phone] RN orders: Cardiopulmonary assessment, incisional assessment, assess [...] issues please call the Cardiac SurgeryOffice at [phone] FOR MEDICARE ONLY: In discussion with the [...] AFTER 09/30/16 Signed: Crispin Aranda PA-C 09/25/2016 [facility] [place] of [place]iac [place] [facility] [place] [phone] FAX [phone] Date: 09/25/2016 CC: ANURAG Alford Caryn E, APRN [address] [place] [address] documented in this encounter Discharge Instructions * [...] Alirio Esparza and/or the Cardiac Surgery Physician Editor News Team may be reached at . Antibiotic prophylaxis: You will need to take antibiotics prior to many invasive tests and treatments, such as dental cleaning, which should be done every 6 months. Your primary care physician or your dentist can prescribe this medication. Please refer to the card with the [place] Heart [employer] Guidelines for more information. You have been provided with 3 copies of this card. Keep one for your self. Give one to your primary care physician and one to your dentist. Please refer to the [place] Heart Association Guidelines for more information. Good [...] Dr. Alirio Jones. You may use a [place] Track or treadmill but avoid any pulling [...] friends, go to a movie, go to yarsani, etc. Heavy activities: No hunting, skiing, jogging, [...] should resume a low fat, low cholesterol, [place] Heart Association Diet. Driving: No driving until [...] outpatient Phase 2 Cardiac Rehabilitation at [facility]. The patient agrees to a [...] PM EST Cardiac Surgery Progress Note: ID: [id number] S/p AVR, patch aortoplasty POD#2. PMH of [...] Gas) No results found for: PHART, PO2ART, SRB1OUR Assessment/Plan: TPW out this am. (+) BM. [...] Signed: Crispin Aranda PA-C 09/24/2016 Team pager: [phone]; [phone] after 5pm [facility] Section of Cardiac Surgery * Leonor Henson S, IMAGING SCHEDULER - 09/23/2016 10:48 AM EST Cardiac Surgery Progress Note: ID: [id number] s/p AVR, patch aortoplasty POD#2. PMH of [...] Gas) No results found for: PHART, PO2ART, TDX2PLW Assessment/Plan: s/p AVR, patch aortoplasty POD#2. PMH of Neutropenia, HLD, HTN, Depression, obesity, . Transferred from [facility] yesterday and doing well. Pathway. Will dc [...] Surgeon on rounds. Signed: Leonor Henson APRN [facility] Section of Cardiac Surgery Date: 09/23/2016 * Nico Palacios PA - 09/22/2016 9:56 AM EST Cardiac Surgery Progress Note: ID: [id number] s/p AVR, patch aortoplasty POD#1. PMH of [...] NT, ND, soft. Ext: Moves all extremities. [place], well perfused. Incisions: C/D/I Tubes/Lines/Drains: PIV, leanna, [...] Attending Surgeon on rounds. Signed: EKATERINA KIM [facility] Section of Cardiac Surgery Date: [...] Outcome (s) achieved Date Met: 09/25/16 09/25/16 3314 Coping/Psychosocial Plan Of Care Reviewed With patient [...] health, home with outpatient services Lalitha Cohen [facility] Pager: [phone] Inpatient Physical Therapy Patient status, treatment interventions, and goals discussed with student. I am in agreement with all details and associated flowsheet rows as documented and was present for all aspects of the patient treatment session. Nery Jaramillo, CANDY Pager [phone] Problem: Acute Rehab Services Goal & Intervention Plan Goal: Bed Mobility Goal Stand Alone Therapy Goal Outcome: Ongoing (Interventions Implemented as Appropriate) 09/22/16 1611 09/25/16 0947 Bed Mobility Goal Bed Mobility Goal, Time to Achieve 4 days -- Bed Mobility Goal, Activity Type scoot/bridge;supine to sit/sit to supine -- Bed Mobility Goal, [place] Level independent -- Bed Mobility Goal, Additional [...] Achieve 4 days -- Gait Training Goal, [place] Level independent -- Gait Training Goal, Distance [...] [continuous indirect monitoring]: Tele, purposeful rounding, call doheryt in reach Patient-specific fall prevention interventions for [...] assist, home with home health [facility] Pager: [phone] Inpatient Physical Therapy Patient status, treatment interventions, and goals discussed with student. I am in agreement with all details and associated flowsheet rows as documented and was present for all aspects of the patient treatment session. Nery Jaramillo, CLINICAL REVIEW SPECIALIST Pager [phone] Problem: Acute Rehab Services Goal & Intervention Plan Goal: Bed Mobility Goal Stand Alone Therapy Goal Outcome: Ongoing (Interventions Implemented as Appropriate) 09/22/16161009/23/161411 Bed Mobility Goal Bed Mobility Goal, Time to Achieve 4 days -- Bed Mobility Goal, Activity Type scoot/bridge;supine to sit/sit to supine -- Bed Mobility Goal, [place] Level independent -- Bed Mobility Goal, Additional [...] Achieve 4 days -- Gait Training Goal, [place] Level independent -- Gait Training Goal, Distance [...] days -- Transfer Training Goal, Activity Type sdd-sf-rkjkh/xdyzp-sf-ewa;wbk-qv-dndsm/uwdzd-yv-iel -- Transfer Train Goal, [place] Level independent -- Transfer Training Goal, Additional Goal abides sternal precautions -- Transfer Training Goal, Outcome -- goal met * Consult Note - Jana Crenshaw RN - 09/23/2016 9:41 AM EST [facility] Purnima Thacker was seen today regarding participation in the outpatient Phase 2 Cardiac Rehabilitation at [facility]. The patient agrees to a [...] and ADLs]: Room near unit station, call dohetry in reach, bed in lowest position Surveillance [...] Another Service: (cardiac rehab) NICOLE HERNANDEZ, PT Pager:[phone] Inpatient Physical Therapy Problem: Acute Rehab Services Goal & Intervention Plan Goal: Bed Mobility Goal Stand Alone Therapy Goal Outcome: Ongoing (Interventions Implemented as Appropriate) 09/22/161610 Bed Mobility Goal Bed Mobility Goal, Time to Achieve 4 days Bed Mobility Goal, Activity Type scoot/bridge;supine to sit/sit to supine Bed Mobility Goal, [place] Level independent Bed Mobility Goal, Additional Goal able to abide sternal precautions during transfers Goal: Gait Training Goal Stand Alone Therapy Goal Outcome: Ongoing (Interventions Implemented as Appropriate) 09/22/161610 Gait Training Goal Gait Training Goal, Date Established 09/22/16 Gait Training Goal, Time to Achieve 4 days Gait Training Goal, [place] Level independent Gait Training Goal, Distance to Achieve ascend and descends 2 steps independently Goal: Goal Transfer Training Stand Alone Therapy Goal Outcome: Ongoing (Interventions Implemented as Appropriate) 09/22/161610 Goal Transfer Training Transfer Training Goal, Time to Achieve 4 days Transfer Training Goal, Activity Type gia-he-lvxew/wksbc-hx-zib;jgg-oj-hwwdt/xdlis-iz-hhl Transfer Train Goal, [place] Level independent Transfer Training Goal, Additional Goal [...] of completing AD's at home, chooses her wfuynk-tl-oph, Martha Thacker (home) for her DPOAH, 2nd choice in friend, Nitesh Rad, [place], [place] Current Coping/Education/Information Needs: patient sitting up [...] close by, Rashad & Raymond, and her sxwjwx-wy-apa Martha Thacker who she has chosen to be her DPOAH. Also has a friend Nitesh Leroy who lives in [place], [place], also her DPOAH choice. Behavioral Health History: none on file in [facility] Substance Use/Abuse: none on file in [facility] Other Pertinent/Service Specific Information: none Health/Prescription Coverage: Primary Insurance: [employer] Secondary Insurance: none Prescription Coverage: yes, per patient no issues Preferred Pharmacy: ?? Other: none Primary Care Provider: Deborah Quiroga, IMAGING SCHEDULER [phone] Patient/Caregiver Goals of Treatment: per medical team recommendations at discharge for CT surgery Potential Needs for Transition of Care: Rehab/SNF: TBD Home Health: TBD DME: no Dialysis: no Community Resources: non3 Transportation: ride home with a friend Other: none Anticipated Barriers to Discharge/Special Considerations: none anticipated at this time Plan: patient will need VNA services at discharge. The patient/member service representative has been provided a list of Home Health Agencies/DME vendors which servetheir preferred geographic area. A letter describing our affiliations was reviewed with them and they were educated about their right to choose where referrals are placed. Patient requests referral to: [facility] [place]. PHONE: [phone] FAX: [phone] Expected date of discharge: Fri/Sat? CM called VNA to confirm referral, talked with VALDO Bunn/intake who stated she was familiar w/patient & would monitor her progress through curaspan. Referral routed to the [facility] for matching with agency/vendor and to provide any required information. A member of the Care Management team will continue to monitor progress, follow for continuity of care and assist with transition of care planning. Amanda Moreno RN Pager: [phone] * Op Note - Alirio Esparza MD - 09/21/2016 12:53 PM EST 09/23/2016 Purnima Thacker 1955 [id number] Preoperative Diagnosis: Symptomatic aortic stenosis Postoperative Diagnosis: Symptomatic aortic stenosis Procedure: Aortic valve replacement: Bovine Pericardial 25 mm Surgeon: Alirio Esparza M.D. Editor News: Philip BALL Anesthesia: General endotracheal anesthesia Drains: [...] applied. The patient was transported to the [facility] on levo. All counts were correct. * OR Attestation - Alirio Esparza MD - 09/21/2016 12:19 PM EST Attestation: Case Date: 09/21/2016 I was present and I participated during the entire procedure (does not need to include opening and closing). ALIRIO ESPARZA MD 09/21/2016 * Brief Op Note - Alirio Esparaz MD - 09/21/2016 12:19 PM EST Brief Operative Note Patient Name: Purnima Thacker : [id number] MR#: [id number] Case Date: 09/21/2016 Surgeon: Surgeon(s) and Role: * Alirio Esparza MD - Primary * Nico Palacios PA - Physician Editor News Preoperative diagnosis: Postoperative diagnosis: Procedure(s) (LRB): @REPLACE [...] 4:15 PM EDT Office Visit Dermatology at [place] [address] [place] [address] Marek Bonilla MD [address], [place] [address] Scheduled Orders Name Type Priority Associated Diagnoses [...] IMPLANTABLE DEVICES SCAN 09/26/2016 12:00 AM EST HOSPITAL MANAGER SCAN 09/26/2016 12:00 AM EST POTASSIUM [...] SCAN EXT O RDR/RSLT * SCAN DOC: HOSPITAL MANAGER (09/26/2016 12:00 AM EST) Anatomical Region [...] MD CHEMISTRY ORDERABLE S Performing Organization Address [facility] Co de Phone Number [facility] [place] [address] * (ABNORMAL) Differential, Automated (09/24/2016 9:56 AM EST) Neutrophil % 76.8 % [facility] Neutrophil Absolute 7.79(H) 1.70 - 6.10 x10(3)/mc L [facility] Lymph % 11.1 % [facility] Lymphocytes Abs 1.1 0.9 - 3.2 x10(3)/mc L [facility] Monocyte % 8.5 % [facility] Monocyte Abs 0.9 0.3 - 0.9 x10(3)/mc L [facility] Eos % 0.5 % [facility] Eosinophils Abs 0.0 0.0 - 0.4 x10(3)/mc L [facility] Basophil % 0.2 % [facility] Baso Absolute [...] MD HEMATOLOGY ORDERABL ES Performing Organization Address [facility]/ZIP Co de Phone Number [facility] [place] [address] * (ABNORMAL) Hemogram (09/24/2016 9:56 AM EST) [...] MEDICAL CENTER LABOR[facility]ORY NRBC% auto 1.1 % [facility] NRBC Absolute 0.110(H) 0.000 - 0.000 x10(3)/mc L [facility] Blood specimen (specimen) 09/24/2016 9:56 AM EST 09/24/2016 10:04 AM EST Narrative Resulting Agency Comment Spec In Lab Alirio Esparza MD HEMATOLOGY ORDERABL ES Performing Organization Address City/[facility]/ZIP Co de Phone Number [facility] [place] [address] * (ABNORMAL) Basic Metabolic Panel (non-fasting) (09/24/2016 [...] the following links into your internet browser. [email or web address] Blood specimen (specimen) 09/24/2016 9:56 AM EST 09/24/2016 10:04 AM EST Narrative Resulting Agency Comment Spec In Lab Alirio Esparza MD CHEMISTRY ORDERABLE S [facility] [place] [address] * XR Chest PA & Lateral (Generic) [...] MD CHEMISTRY ORDERABLE S Performing Organization Address [facility]/ZIP Co de Phone Number [facility] [place] [address] * POCT Glucose (09/22/2016 8:17 AM EST) Glucose, POC 131 65 - 199 mg/dL [facility] Comment: Supplemental ranges: <140 mg/dL before meals <180 mg/dL all other times of the day Blood specimen (specimen) 09/22/2016 8:17 AM EST 09/22/2016 8:17 AM EST Alirio Esparza MD POINT OF CARE TEST ORDERABLES Performing Organization Address [facility] Co de Phone Number [facility] [place] [address] * POCT Glucose (09/22/2016 4:01 AM EST) Glucose, POC 135 65 - 199 mg/dL [facility] Comment: Supplemental ranges: <140 mg/dL before meals <180 mg/dL all other times of the day Blood specimen (specimen) 09/22/2016 4:01 AM EST 09/22/2016 4:01 AM EST Alirio Esparza MD POINT OF CARE TEST ORDERABLES Performing Organization Address [facility] Co de Phone Number [facility] [place] [address] * Scan, Peripheral Blood (09/22/2016 4:00 AM EST) Plat estimate Normal [facility] RBC Morphology Abnormal [facility] Macrocyte 1-5 /HPF [facility] Plat, Giant Less than 1 /HPF [facility] Blood specimen (specimen) 09/22/2016 4:00 AM EST 09/22/2016 4:34 AM EST Narrative Resulting Agency Comment Spec In Lab Alirio Esparza MD HEMATOLOGY ORDERABL ES Performing Organization Address [facility]/ZIP Co de Phone Number [facility] [place] [address] * Electrolytes panel (09/22/2016 4:00 AM EST) Pathologist [facility] Sodium 145 135 - 145 mmol/L [facility] [...] MD CHEMISTRY ORDERABLE S Performing Organization Address [facility]/ZIP Co de Phone Number [facility] [place] [address] * (ABNORMAL) Differential, Automated (09/22/2016 4:00 AM EST) Pathologist [facility] Neutrophil % 70.9 % [facility] Neutrophil Absolute 5.33 1.70 - 6.10 x10(3)/mc L [facility] Lymph % 9.1 % [facility] Lymphocytes Abs 0.7(L) 0.9 - 3.2 x10(3)/mc L [facility] Monocyte % 18.0 % [facility] Monocyte Abs 1.4(H) 0.3 - 0.9 x10(3)/mc L [facility] Eos % 0.0 % [facility] Eosinophils Abs 0.0 0.0 - 0.4 x10(3)/ L [facility] Basophil % 0.1 % [facility] Baso Absolute [...] Immature Gran Absolute 0.14(H) 0.00 - 0.04 x10(3)/[facility] Blood specimen (specimen) 09/22/2016 4:00 AM EST 09/22/2016 4:34 AM EST Narrative Resulting Agency Comment Spec In Lab Alirio Esparza MD HEMATOLOGY ORDERABL ES Performing Organization Address City/State/[facility] Co de Phone Number [facility] [place] [phone] * (ABNORMAL) Hemogram (09/22/2016 4:00 AM EST) White Blood Cell 7.5 4.0 - 9.5 x10(3)/ L [facility] Red Blood Cell 2.93(L) 4.00 - 5.21 x10(6)/ L [facility] Hemoglobin [...] Platelet 161 145 - 357 x10(3)/ L [facility] RDW Standard Deviation 44.0 37.0 - 46.0 fL [facility] RDW coefficient of variation 12.6 11.5 - 14.1 % [facility] Mean Platelet Volume 9.3 7.6 - 12.9 fL [facility] NRBC% auto 0.3 % [facility] NRBC Absolute 0.020(H) 0.000 - 0.000 x10(3)/mc L [facility] Blood specimen (specimen) 09/22/2016 4:00 AM EST 09/22/2016 4:34 AM EST Narrative Resulting Agency Comment Spec In Lab Alirio Esparza MD HEMATOLOGY ORDERABL ES [facility] [place] [phone] * (ABNORMAL) Cardiac Enzymes (09/22/2016 4:00 AM [...] consensus document of the Joint Society of Cardiology/[place] College [employer]iology Committee for the redefinition of myocardial infarction. ??Journal of the [place] College of Cardiology 2000; 36: 959-969] Creatine Kinase 338(H) 0 - 160 unit/L [facility] Blood specimen (specimen) 09/22/2016 4:00 AM EST 09/22/2016 4:34 AM EST Narrative Resulting Agency Comment Spec In Lab Alirio Esparza MD CHEMISTRY ORDERABLE S Performing Organization Address [facility] Co de Phone Number [facility] [place] [address] * (ABNORMAL) Glucose, fasting (09/22/2016 4:00 AM [...] of Diabetes Mellitus, Position Statement from the [place] Diabetes Association. ??Diabetes Care, Volume 33, Supplement 1, Aug 2009 Blood specimen (specimen) 09/22/2016 4:00 AM EST 09/22/2016 4:34 AM EST Narrative Resulting Agency Comment Spec In Lab Alirio Esparza MD CHEMISTRY ORDERABLE S Performing Organization Address [facility] Co de Phone Number [facility] [place] [address] * (ABNORMAL) Creatinine (09/22/2016 4:00 AM EST) [...] the following links into your internet browser. [email or web address] Blood specimen (specimen) 09/22/2016 4:00 AM EST 09/22/2016 4:34 AM EST Narrative Resulting Agency Comment Spec In Lab Alirio Esparza MD CHEMISTRY ORDERABLE S Performing Organization Address [facility] Co de Phone Number [facility] [place] [address] * BUN (09/22/2016 4:00 AM EST) Blood Urea Nitrogen 10 8 - 18 mg/dL [facility] Blood specimen (specimen) 09/22/2016 4:00 AM EST 09/22/2016 4:34 AM EST Narrative Resulting Agency Comment Spec In Lab Alirio Esparza MD CHEMISTRY ORDERABLE S Performing Organization Address [facility] Co de Phone Number [facility] [place] [address] * POCT Glucose (09/21/2016 9:59 PM EST) Glucose, POC 146 65 - 199 mg/dL [facility] Comment: Supplemental ranges: <140 mg/dL before meals <180 mg/dL all other times of the day Blood specimen (specimen) 09/21/2016 9:59 PM EST 09/21/2016 9:59 PM EST Alirio Esparza MD POINT OF CARE TEST ORDERABLES Performing Organization Address City/[facility] Co de Phone Number [facility] [place] [address] * POCT Glucose (09/21/2016 7:26 PM EST) [facility] Glucose, POC 152 65 - 199 mg/dL [facility] Comment: Supplemental ranges: <140 mg/dL before meals <180 mg/dL all other times of the day Blood specimen (specimen) 09/21/2016 7:26 PM EST 09/21/2016 7:26 PM EST Alirio Esparza MD POINT OF CARE TEST ORDERABLES [facility] [place] [address] * POCT Glucose (09/21/2016 6:00 PM EST) [facility] Glucose, POC 146 65 - 199 mg/dL [facility] Comment: Supplemental ranges: <140 mg/dL before meals <180 mg/dL all other times of the day Blood specimen (specimen) 09/21/2016 6:00 PM EST 09/21/2016 6:00 PM EST Alirio Esparza MD POINT OF CARE TEST ORDERABLES [facility] [place] [address] * (ABNORMAL) BLOOD GAS 2 ARTERIAL (09/21/2016 4:42 PM EST) [facility] pH, Arterial 7.35(L) 7.35 - 7.45 [facility] [...] [facility] FIO2 Art 40 % [facility] PF Ratio Art 270 [facility] Blood specimen (specimen) 09/21/2016 4:42 PM EST 09/21/2016 4:42 PM EST Alirio Esparza MD POINT OF CARE TEST ORDERABLES [facility] [place] [address] * POCT Glucose (09/21/2016 4:07 PM EST) Glucose, POC 150 65 - 199 mg/dL [facility] Comment: Supplemental ranges: <140 mg/dL before meals <180 mg/dL all other times of the day Blood specimen (specimen) 09/21/2016 4:07 PM EST 09/21/2016 4:07 PM EST Alirio Esparza MD POINT OF CARE TEST ORDERABLES Performing Organization Address [facility] Co de Phone Number [facility] [place] [address] * (ABNORMAL) Hemoglobin (09/21/2016 4:05 PM EST) Hemoglobin 9.9(L) 11.7 - 15.5 gm/dL [facility] Blood specimen (specimen) 09/21/2016 4:05 PM EST 09/21/2016 4:20 PM EST Narrative Resulting Agency Comment Spec In Lab Aliiro Esparza MD HEMATOLOGY ORDERABL ES Performing Organization Address [facility] Co de Phone Number [facility] [place] [address] * Potassium (09/21/2016 4:05 PM EST) [facility] Potassium 4.6 3.5 - 5.0 mmol/L [facility] [...] MD CHEMISTRY ORDERABLE S Performing Organization Address [facility] Co de Phone Number [facility] [place] [address] * POCT Glucose (09/21/2016 2:52 PM EST) Glucose, POC 117 65 - 199 mg/dL [facility] Comment: Supplemental ranges: <140 mg/dL before meals <180 mg/dL all other times of the day Blood specimen (specimen) 09/21/2016 2:52 PM EST 09/21/2016 2:52 PM EST Alirio Esparza MD POINT OF CARE TEST ORDERABLES Performing Organization Address [facility] Co de Phone Number [facility] [place] [address] * POCT Glucose (09/21/2016 1:51 PM EST) Glucose, POC 108 65 - 199 mg/dL [facility] Comment: Supplemental ranges: <140 mg/dL before meals <180 mg/dL all other times of the day Blood specimen (specimen) 09/21/2016 1:51 PM EST 09/21/2016 1:51 PM EST Alirio Esparza MD POINT OF CARE TEST ORDERABLES Performing Organization Address [facility] de Phone Number [facility] [place] [address] * POCT Glucose (09/21/2016 12:54 PM EST) Glucose, POC 128 65 - 199 mg/dL [facility] Comment: Supplemental ranges: <140 mg/dL before meals <180 mg/dL all other times of the day Blood specimen (specimen) 09/21/2016 12:54 PM EST 09/21/2016 12:54 PM EST Alirio Esparza MD POINT OF CARE TEST ORDERABLES Performing Organization Address [facility] Co de Phone Number [facility] [place] [address] * EKG 12 Lead (09/21/2016 12:26 PM EST) Ventricular rate 87 BPM MUSE SYSTEM Atrial Rate 87 BPM MUSE SYSTEM P-R Interval 256 ms MUSE SYSTEM QRS Duration 90 ms MUSE SYSTEM Q-T Interval 406 ms MUSE SYSTEM QTC Calculated (Bezet) 488 ms MUSE SYSTEM Calculated P [place] 24 degrees MUSE SYSTEM Calculated R [place] 21 degrees MUSE SYSTEM Calculated T [place] -5 degrees MUSE SYSTEM INTERPRETATION Sinus rhythm with 1st degree A-V block Nonspecific T wave abnormality Prolonged QT Abnormal ECG When compared with ECG of 19-MAY-2016 11:43, [place] interval has increased T wave inversion now [...] course of the esophagus and below the [id number]. There is a right IJ PA catheter [...] the course of theesophagus and below the [id number]-[id number]. There is a right IJ PA catheter [...] [facility] FIO2 Art 100 % [facility] PF Ratio Art 356 [facility] Blood specimen (specimen) 09/21/2016 12:20 PM EST 09/21/2016 12:20 PM EST Alirio Esparza MD POINT OF CARE TEST ORDERABLES Performing Organization Address City/State/[facility] Co de Phone Number [facility] [place] [address] * (ABNORMAL) BLOOD GAS 2 ARTERIAL (09/21/2016 [...] [facility] FIO2 Art 95 % [facility] Flow Art 0.7 LPM [facility] PF Ratio Art 313 [facility] Temp Art 36.7 Celsius [facility] Blood specimen (specimen) 09/21/2016 10:54 AM EST 09/21/2016 10:54 AM EST Alirio Esparza MD POINT OF CARE TEST ORDERABLES Performing Organization Address [facility] Co de Phone Number [facility] [place] [address] * Thrombin time (09/21/2016 10:50 AM EST) [...] MD HEMATOLOGY ORDERABLE S Performing Organization Address [facility]/ZIP Co de Phone Number [facility] [place] [address] * Fibrinogen (09/21/2016 10:50 AM EST) Fibrinogen [...] MD HEMATOLOGY ORDERABLE S Performing Organization Address [facility] de Phone Number [facility] [place] [address] * APTT (09/21/2016 10:50 AM EST) Partial Thromboplastin Time 32 25 - 35 sec [facility] Comment: The recommended therapeutic range for full dose, unfractionated heparin at [facility] is 80 ? 114 seconds. The use of the anti-Xa (heparin) level rather than the PTT is recommended for monitoring anticoagulation intensity in critically ill patients receiving unfractionated heparin by continuous IV infusion. Blood specimen (specimen) 09/21/2016 10:50 AM EST 09/21/2016 10:56 AM EST Narrative Resulting Agency Comment Spec In Lab Luis Enrique Quarles MD HEMATOLOGY ORDERABLE S Performing Organization Address [facility] de Phone Number [facility] [place] [address] * (ABNORMAL) Prothrombin Time (09/21/2016 10:50 AM [...] ORDERABLE S [facility] [place] [address] * (ABNORMAL) Hemogram (09/21/2016 10:50 AM EST) [...] [facility] NRBC% auto 0.1 % [facility] NRBC Absolute 0.020(H) 0.000 - 0.000 x10(3)/mc L [facility] Blood specimen (specimen) 09/21/2016 10:50 AM EST 09/21/2016 10:56 AM EST Narrative Resulting Agency Comment Spec In Lab Luis Enrique Quarles MD HEMATOLOGY ORDERABLE S Performing Organization Address [facility]/[place] [address] * Prepare Platelets, Apheresis (09/21/2016 10:30 AM EST) Pathologist [facility] Dispensed? Yes [facility] Blood specimen (specimen) 09/21/2016 10:30 AM EST 09/21/2016 10:28 AM EST lAirio Esparza MD BLOOD BANK PRODUCT ORDERABLES Performing Organization Address [facility] [place] [address] * (ABNORMAL) BLOOD GAS 2 ARTERIAL (09/21/2016 10:05 AM EST) pH, Arterial 7.33(L) 7.35 - 7.45 [facility] PCO2, Arterial 54(Critic al) 35 - 45 mmHg [facility] Comment:Noted by instrument repairer helper. PO2, Arterial 218(H) 85 - 104 mmHg [...] [facility] Comment: Noted by instrument repairer helper. Please note: Patients with WBC >100,000 may [...] [facility] Temp Art 37.0 Celsius [facility] Blood specimen (specimen) 09/21/2016 10:05 AM EST 09/21/2016 10:05 AM EST Alirio Esparza MD POINT OF CARE TEST ORDERABLES [facility] [place] [address] * (ABNORMAL) BLOOD GAS 2 ARTERIAL (09/21/2016 9:44 AM EST) pH, Arterial 7.22(Criti gabrielle) 7.35 - 7.45 [facility] Comment:Noted by instrument repairer helper. PCO2, Arterial 70(Critica l) 35 - 45 mmHg [facility] Comment:Noted by instrument repairer helper. PO2, Arterial 224(H) 85 - 104 mmHg [...] TEST ORDERABLES [facility] [place] [address] * (ABNORMAL) Hemoglobin (09/21/2016 9:42 AM EST) Hemoglobin 7.2(L) 11.7 - 15.5 gm/dL [facility] Blood specimen (specimen) 09/21/2016 9:42 AM EST 09/21/2016 9:51 AM EST Narrative Resulting Agency Comment Spec In Lab Alirio Esparza MD HEMATOLOGY ORDERABL ES [facility] [place] [address] * Platelet count (09/21/2016 9:42 AM EST) Platelet 159 145 - 357 x10(3)/mc L [facility] Immature Plt % 1.6 0.0 - 7.4 % [facility] Comment: Limitation of the Immature Platelet Fraction (IPF)-May be less reliable when the platelet count is less than 11r742/uL due to statistical imprecision. The IPF value [...] in a decreased state of production. References: [employer] The Clinical Value of the Immature Platelet Fraction (IPF) in Cell Recovery Document Number 10-1143 12/2010 [employer] The Role of the Immature Platelet Fraction (IPF) in the Differential Diagnosis of Thrombocytopenia, Document [id number] [id number] [id number] Blood specimen (specimen) 09/21/2016 9:42 AM EST 09/21/2016 9:51 AM EST Narrative Resulting Agency Comment Spec In Lab Alirio Esparza MD HEMATOLOGY ORDERABL ES [facility] [place] [address] * (ABNORMAL) Hematocrit (09/21/2016 9:42 AM EST) [...] MD HEMATOLOGY ORDERABL ES Performing Organization Address [facility] de Phone Number [facility] [place] [address] * Fibrinogen (09/21/2016 9:42 AM EST) Fibrinogen [...] MD HEMATOLOGY ORDERABL ES Performing Organization Address [facility] de Phone Number [facility] [place] [address] * (ABNORMAL) BLOOD GAS 2 ARTERIAL (09/21/2016 [...] [facility] Temp Art 37.0 Celsius [facility] Blood specimen (specimen) 09/21/2016 9:10 AM EST 09/21/2016 9:10 AM EST Alirio Esparza MD POINT OF CARE TEST ORDERABLES Performing Organization Address City/State/[facility] Co de Phone Number [facility] [place] [address] * Surgical Pathology Report (09/21/2016 9:09 AM EST) Final Diagnosis [id number] ?Location: 3T The signing pathologist has (i) [...] Esparza MD PATHOLOGY/CYTOLOGY ORDERABLES Performing Organization Address City/[facility] Co de Phone Number [facility] [place] [address] * Specimen to Pathology (surgical or derm) (09/21/2016 9:09 AM EST) AP Specimen 09/21/2016 9:09 AM EST 09/21/2016 9:09 AM EST Narrative [facility] - 09/21/2016 9:09 AM EST Specimen requisition ordered. ??Separate Pathology report to follow Alirio Esparza MD PATHOLOGY/CYTOLOGY ORDERABLES Performing Organization Address [facility]/ZIP Co de Phone Number [facility] [place] [address] * (ABNORMAL) BLOOD GAS 2 ARTERIAL (09/21/2016 [...] TEST ORDERABLES [facility] [address] * (ABNORMAL) BLOOD GAS 2 ARTERIAL (09/21/2016 [...] [facility] FIO2 Art 95 % [facility] Flow Art 1.1 LPM [facility] PF Ratio Art 298 [facility] Temp Art 35.6 Celsius [facility] Blood specimen (specimen) 09/21/2016 8:18 AM EST 09/21/2016 8:18 AM EST Alirio Esparza MD POINT OF CARE TEST ORDERABLES Performing Organization Address [facility] Co de Phone Number [facility] [place] [address] * Prepare RBC (09/21/2016 7:05 AM EST) Dispensed? Yes [facility] Blood specimen (specimen) 09/21/2016 7:05 AM EST 09/21/2016 7:02 AM EST Alirio Esparza MD BLOOD BANK PRODUCT ORDERABLES Performing Organization Address [facility] Co de Phone Number [facility] [place] [address] * POCT Glucose (09/21/2016 6:42 AM EST) Glucose, POC 104 65 - 199 mg/dL [facility] Comment: Supplemental ranges: <140 mg/dL before meals <180 mg/dL all other times of the day Blood specimen (specimen) 09/21/2016 6:42 AM EST 09/21/2016 6:42 AM EST Alirio Esparza MD POINT OF CARE TEST ORDERABLES Performing Organization Address [facility] de Phone Number [facility] [place] [address] documented in this encounter Visit Diagnoses Not [...] dose on Wed09/21/16 at 1230, Until Discontinued, [place] teeth, Routine Given 09/25/2016 9:40 AM EST [...] at 0600)1600 (Due - Provider: Kendall Martínez [facility]) aspirin chewable tablet 81 mg(Linked [...] dose on Wed09/21/16 at 1230, Until Discontinued, [place] teeth, Routine 0900 (Not Given - Provider: [...] Routine documented in this encounter Care Teams Hydraulic Barker Operator Relationship Specialty Start Date End Date Deborah Quiroga APRN PCP - General Family Medicine 03/24/16 02/04/23 documented as of this encounter
--- OUTSIDE RECORDS SUMMARY | 2024-04-11 14:21 | XMS_ITS | Encounter Summary ---
Author Organization [facility] [place] [address] Care Team Providers Care Wedding Makeup Artist Name Role Phone Ashley Quirogan Cornelius ANURAG Primary Care Provider [phone] Reason for Referral * Consultation (Routine) - Specialty Diagnoses / Procedures Referred By Contact Referred To Contact Cardiac Rehabilitation Diagnoses S/P AVR Alirio Esparza MD [facility] DR CARDIOTHORACIC [place] [address] Cardiac Rehab, [address] [place] [address] Referral ID Status Reason Start Date Expiration Date V isits Requested Visits Authorized [id number] Consult, Test & Treat 09/25/2016 03/24/2017 36 36 Reason for Visit * Auth/Cert Specialty Diagnoses / Procedures Referred By Contkrystle t Referred To Contact Diagnoses Aortic stenosis Procedures PRO REPLACE AORT VALV, PROSTH VALV @REPLACE AORTIC VALVE, OPEN, W\CPB, W\PROSTHETIC VALVE (WRVU 41.32) Referral ID Status Reason Start Date Expiration Date Visits Re quested Visits Authorized [id number] 1 1 Encounter Details Date Type Department Care Team (Latest Contact Info) Description 09/21/2016 6:08 AM EST - 09/25/2016 4:33 PM EST Hospital Encounter Intermediate [place] [id number] Alirio Esparza MD Aortic valve stenosis, unspecified [...] Patient Age: 61 y.o. Birthdate: 1955 Language: Central African Race: White Ethnicity: Not nor Admit Date: 09/21/2016 Discharge Date: 09/25/2016 Attending Physician: Alirio Esparza MD Follow-up Recommendations for Providers: Please continue routine management of cardiovascular risk factors including blood pressure, lipids,glucose, etc. Please note any changes to medications. Patient to follow-up with PCP, Deborah Quiroga APRN, in 1-2 weeks. Patient to follow-up with Chemicals Distiller, Dr. Antelmo Burrell, in two weeks. Patient to follow-up with Cardiac Surgery, Dr. Alirio Esparza, to be scheduled for before 10/19/2016, with CXR, EKG, and Echo. Inpatient Provider Contact Information: [facility] Section of Cardiac Surgery [facility] [address] FAX [phone] Discharge Diagnoses (Hospital Problems) Primary Diagnoses: Secondary [...] 41.32) performed by Alirio Esparza MD at [facility] ??? Pro aortoplas for supravalv sten N/A 09/21/2016 @AORTOPLASTY FOR SUPRAVALVULAR STENOSIS (WRVU 29.33) performed by Alirio Esparza MD at [facility] Prior To Admission Medications [...] Purnima Thacker was admitted to [facility] on 09/21/2016 via the Same Day Program. [...] Alirio Esparza and/or the Cardiac Surgery Physician Shingle Trimmer Team may be reached at . Antibiotic prophylaxis: You will need to take antibiotics prior to many invasive tests and treatments, such as dental cleaning, which should be done every 6 months. Your primary care physician or your dentist can prescribe this medication. Please refer to the card with the [place] Heart Association Guidelines for more information. You have been provided with 3 copies of this card. Keep one for your self. Give one to your primary care physician and one to your dentist. Please refer to the [place] Heart Association Guidelines for more information. Good [...] Dr. Alirio Jones. You may use a [place] Track or treadmill but avoid any pulling [...] should resume a low fat, low cholesterol, [place] Heart Association Diet. Driving: No driving until [...] AM Markel Borjas MD [facility] [phone] Future Orders Complete By Expires Echocardiogram Transthoracic([place]eb) [BGY470 Custom] 10/18/2016 (Approximate) 09/18/2017 Process Instructions: If the Echocardiogram is to be PERFORMED in a location other than [place]--STOP and order [id number], Echocardiogram South/External. Scheduling Instructions: Questions: Is a Bubble Study requested?: No Does the patient have Congenital Heart Disease?: No Does patient require sedation?: None GA rationale: Should this service be billed to the research sponsor?: EKG 12 Lead [EKG1 Custom] 10/18/2016 (Approximate) 09/25/2017 Process Instructions: Scheduling Instructions: Questions: Which location will this be performed?: [place] Is a rhythm strip needed?: No If EKG Reason is Pre-op Evaluation, indicate diagnosis for surgery.: Should this service be billed to the research sponsor?: XR Chest PA & Lateral (Generic) [30921 [id number] Custom] 10/18/2016 (Approximate) 09/25/2017 Process Instructions: Scheduling Instructions: Questions: Where will study be performed?: [facility]- Radiology Portable exam?: No Reason for exam and clinical history: s/p AVReplacement, patch annuloplasty 1 month f/u Other pertinent information: Stat read required?: Date of injury if applicable: Requested Time: Referral to Cardiac Rehab [YXO015 Custom] As directed Process Instructions: If no progress note charted, please enter Clinical details in comments. Scheduling Instructions: Questions: My question or request is: s/p AVR. Cardiac rehab at [facility] Referral to Home Health - at DISCHARGE [GFF9896 CPT(R)] As directed Process Instructions: Scheduling Instructions: Comments: DOCUMENTATION FOR VNA SERVICES (INCLUDING THOSE PATIENTS WITH MEDICARE COVERAGE REQUIRING HOME VNA SERVICES AND/OR HOSPICE SERVICES) PATIENT'S LOCATION: Purnima Magalie Kirstie [address] [place] [phone] (home) No relevant phone numbers on file. Senior Treasury Analyst's Name: self In discussion with the attending physician, it is certified that this patient is under their care and that they, or a Nurse Practitioner, or Physician Shingle Trimmer who is working directly with them, hada [...] for services as follows: HOME HEALTH AGENCY: [facility] PHONE: [phone] FAX: [phone] RN orders: Cardiopulmonary assessment, incisional assessment, assess [...] issues please call the Cardiac SurgeryOffice at [phone] FOR MEDICARE ONLY: In discussion with the [...] AFTER 09/30/16 Signed: Crispin Aranda PA-C 09/25/2016 [facility] Section [facility] [address] FAX [phone] Date: 09/25/2016 CC: ANURAG Alford Caryn E, APRN [address] [place] [address] documented in this encounter Discharge Instructions * [...] Alirio Esparza and/or the Cardiac Surgery Physician Shingle Trimmer Team may be reached at . Antibiotic prophylaxis: You will need to take antibiotics prior to many invasive tests and treatments, such as dental cleaning, which should be done every 6 months. Your primary care physician or your dentist can prescribe this medication. Please refer to the card with the [place] Heart [employer] Guidelines for more information. You have been provided with 3 copies of this card. Keep one for your self. Give one to your primary care physician and one to your dentist. Please refer to the [place] Heart Association Guidelines for more information. Good [...] Dr. Alirio Jones. You may use a [place] Track or treadmill but avoid any pulling [...] should resume a low fat, low cholesterol, [place] Heart Association Diet. Driving: No driving until [...] PM EST Cardiac Surgery Progress Note: ID: [id number] S/p AVR, patch aortoplasty POD#2. PMH of [...] Gas) No results found for: PHART, PO2ART, WBU9BRX Assessment/Plan: TPW out this am. (+) BM. [...] Signed: Crispin Aranda PA-C 09/24/2016 Team pager: [phone]; [phone] after 5pm [facility] Section of Cardiac Surgery * Leonor Henson, ALTERATION HAND - 09/23/2016 10:48 AM EST Cardiac Surgery Progress Note: ID: [id number] s/p AVR, patch aortoplasty POD#2. PMH of [...] Gas) No results found for: PHART, PO2ART, ESS2ZZZ Assessment/Plan: s/p AVR, patch aortoplasty POD#2. PMH of Neutropenia, HLD, HTN, Depression, obesity, . Transferred from [facility] yesterday and doing well. Pathway. Will [...] rounds. Signed: Leonor Henson APRN [facility] Section of Cardiac Surgery Date: 09/23/2016 * Nico Palacios PA - 09/22/2016 9:56 AM EST Cardiac Surgery Progress Note: ID: [id number] s/p AVR, patch aortoplasty POD#1. PMH of [...] NT, ND, soft. Ext: Moves all extremities. [place], well perfused. Incisions: C/D/I Tubes/Lines/Drains: PIV, richi, [...] on rounds. Signed: EKATERINA KIM [facility] Section of Cardiac Surgery Date: 09/22/2016 * [...] left pleural effusion. T/L/D Al ETT CVL [place] [facility] Pacing wires ASSESSMENT, MANAGEMENT, and DECISION [...] home health, home with outpatient services Lalitha Coehn SPTA Pager: [phone] Inpatient Physical Therapy Patient status, treatment interventions, and goals discussed with student. I am in agreement with all details and associated flowsheet rows as documented and was present for all aspects of the patient treatment session. Nerykatrina Jaramillo, [facility] Pager [phone] Problem: Acute Rehab Services Goal & Intervention Plan Goal: Bed Mobility Goal Stand Alone Therapy Goal Outcome: Ongoing (Interventions Implemented as Appropriate) 09/22/16 16109/25/16 09 Bed Mobility Goal Bed Mobility Goal, Time to Achieve 4 days -- Bed Mobility Goal, Activity Type scoot/bridge;supine to sit/sit to supine -- Bed Mobility Goal, [place] Level independent -- Bed Mobility Goal, Additional [...] Achieve 4 days -- Gait Training Goal, [place] Level independent -- Gait Training Goal, Distance [...] assist, home with home health Lalitha Cohen [facility] Pager: [phone] Inpatient Physical Therapy Patient status, treatment interventions, and goals discussed with student. I am in agreement with all details and associated flowsheet rows as documented and was present for all aspects of the patient treatment session. Nery Jaramillo, [facility] Pager [phone] Problem: Acute Rehab Services Goal & Intervention Plan Goal: Bed Mobility Goal Stand Alone Therapy Goal Outcome: Ongoing (Interventions Implemented as Appropriate) 09/22/16 16109/23/16 1412 Bed Mobility Goal Bed Mobility Goal, Time to Achieve 4 days -- Bed Mobility Goal, Activity Type scoot/bridge;supine to sit/sit to supine -- Bed Mobility Goal, [place] Level independent -- Bed Mobility Goal, Additional [...] Achieve 4 days -- Gait Training Goal, [place] Level independent -- Gait Training Goal, Distance [...] days -- Transfer Training Goal, Activity Type atu-pv-jzffr/vfosj-fo-aqm;voy-gr-hjpfi/rsoef-yq-yyo -- Transfer Train Goal, [place] Level independent -- Transfer Training Goal, Additional [...] Another Service: (cardiac rehab) NICOLE HERNANDEZ, PT Pager:[phone] Inpatient Physical Therapy Problem: Acute Rehab Services Goal & Intervention Plan Goal: Bed Mobility Goal Stand Alone Therapy Goal Outcome: Ongoing (Interventions Implemented as Appropriate) 09/22/16 1611 Bed Mobility Goal Bed Mobility Goal, Time to Achieve 4 days Bed Mobility Goal, Activity Type scoot/bridge;supine to sit/sit to supine Bed Mobility Goal, [place] Level independent Bed Mobility Goal, Additional Goal able to abide sternal precautions during transfers Goal: Gait Training Goal Stand Alone Therapy Goal Outcome: Ongoing (Interventions Implemented as Appropriate) 09/22/16 1611 Gait Training Goal Gait Training Goal, Date Established 09/22/16 Gait Training Goal, Time to Achieve 4 days Gait Training Goal, [place] Level independent Gait Training Goal, Distance to Achieve ascend and descends 2 steps independently Goal: Goal Transfer Training Stand Alone Therapy Goal Outcome: Ongoing (Interventions Implemented as Appropriate) 09/22/16 1611 Goal Transfer Training Transfer Training Goal, Time to Achieve 4 days Transfer Training Goal, Activity Type gtd-ff-orqif/qmhtl-kb-nqm;ukw-dl-gjotp/eekte-yy-uhw Transfer Train Goal, [place] Level independent Transfer Training Goal, Additional Goal [...] of completing AD's at home, chooses her qqastk-ko-cdk, Martha Thacker (home) for her [facility], 2nd choice in friend, Nitesh Leroy [place], [place] Current Coping/Education/Information Needs: patient sitting up [...] who live close by, [place], and her sqiwhp-hw-dfl Martha Thacker who she has chosen to be her DPOAH. Also has a friend Nitesh Leroy who lives in [place], [place], also her DPOAH choice. Behavioral Health History: none on file in [facility] Substance Use/Abuse: none on file in [facility] Other Pertinent/Service Specific Information: none Health/Prescription Coverage: Primary Insurance: [employer] Secondary Insurance: none Prescription Coverage: yes, per patient no issues Preferred Pharmacy: ?? Other: none Primary Care Provider: Deborah Quiroga, [employer] [phone] Patient/Caregiver Goals of Treatment: per medical team recommendations at discharge for CT surgery Potential Needs for Transition of Care: Rehab/SNF: TBD Home Health: TBD DME: no Dialysis: no Community Resources: non3 Transportation: ride home with a friend Other: none Anticipated Barriers to Discharge/Special Considerations: none anticipated at this time Plan: patient will need VNA services at discharge. The patient/major account representative has been provided a list of Home Health Agencies/DME vendors which servetheir preferred geographic area. A letter describing our affiliations was reviewed with them and they were educated about their right to choose where referrals are placed. Patient requests referral to: [facility]. PHONE: [phone] FAX: [phone] Expected date of discharge: Fri/Sat? CM called VNA to confirm referral, talked with VALDO Bunn/intake who stated she was familiar w/patient & would monitor her progress through curaspan. Referral routed to the Meat Stringer for matching with agency/vendor and to provide any required information. A member of the Care Management team will continue to monitor progress, follow for continuity of care and assist with transition of care planning. Amanda Moreno RN Pager: [phone] * Op Note - Alirio Esparza MD - 09/21/2016 12:53 PM EST 09/23/2016 Purnima Thacker 1955 [id number] Preoperative Diagnosis: Symptomatic aortic stenosis Postoperative Diagnosis: Symptomatic aortic stenosis Procedure: Aortic valve replacement: Bovine Pericardial 25 mm Surgeon: Alirio Esparza M.D. Shingle Trimmer: Philip BALL Anesthesia: General endotracheal anesthesia Drains: [...] Operative Note Patient Name: Purnima Thacker : [id number] MR#: [id number] Case Date: 09/21/2016 Surgeon: Surgeon(s) and Role: * Alirio Esparza MD - Primary * Nico Palacios PA - Physician Shingle Trimmer Preoperative diagnosis: Postoperative diagnosis: Procedure(s) (LRB): @REPLACE [...] EDT Office Visit [facility] [address] [place] [address] Marek Bonilla MD [address], [place] [address] Scheduled Orders Name Type Priority Associated Diagnoses [...] IMPLANTABLE DEVICES SCAN 09/26/2016 12:00 AM EST FARM CONTRACTOR SCAN 09/26/2016 12:00 AM EST POTASSIUM Routine [...] SCAN EXT O RDR/RSLT * SCAN DOC: FARM CONTRACTOR (09/26/2016 12:00 AM EST) Anatomical Region Laterality Modality Other Narrative 09/26/2016 12:00 AM EST Ordered by an unspecified provider. Scanning Provider MEDIA MGR SCAN EXT O RDR/RSLT * Potassium (09/25/2016 4:32 AM EST) Pathologist [facility] Potassium 4.4 3.5 - 5.0 mmol/L [facility]ERSITY [...] S [facility] [place] [address] * (ABNORMAL) Differential, Automated (09/24/2016 9:56 AM EST) [facility] Neutrophil % 76.8 % [facility] Neutrophil Absolute 7.79(H) 1.70 - 6.10 x10(3)/mc L [facility] Lymph % 11.1 % [facility] Lymphocytes Abs 1.1 0.9 - 3.2 x10(3)/mc L [facility] Monocyte % 8.5 % [facility] Monocyte Abs 0.9 0.3 - 0.9 x10(3)/mc L [facility] Eos % 0.5 % [facility] Eosinophils Abs 0.0 0.0 - 0.4 x10(3)/mc L [facility] Basophil % 0.2 % [place] [...] ES [facility] [place] [address] * (ABNORMAL) Hemogram (09/24/2016 9:56 AM EST) [...] Standard Deviation 45.0 37.0 - 46.0 fL [facility] RDW coefficient of variation 12.6 11.5 - 14.1 % [facility] Mean Platelet Volume 9.4 7.6 - 12.9 fL [facility] NRBC% auto 1.1 % [facility] NRBC Absolute 0.110(H) 0.000 - 0.000 x10(3)/mc L [facility] Blood specimen (specimen) 09/24/2016 9:56 AM EST 09/24/2016 10:04 AM EST Narrative Resulting Agency Comment Spec In Lab Alirio Esparza MD HEMATOLOGY ORDERABL ES [facility] [place] [address] * (ABNORMAL) Basic Metabolic Panel (non-fasting) (09/24/2016 [...] the following links into your internet browser. [email or web address] Blood specimen (specimen) 09/24/2016 9:56 AM EST 09/24/2016 10:04 AM EST Narrative Resulting Agency Comment Spec In Lab Alirio Esparza MD CHEMISTRY ORDERABLE S [facility] [place] [address] * XR Chest PA & Lateral (Generic) [...] CHEMISTRY ORDERABLE S Performing Organization Address [facility] Co de Phone Number [facility] [place] [address] * POCT Glucose (09/22/2016 8:17 AM EST) Glucose, POC 131 65 - 199 mg/dL [facility] Comment: Supplemental ranges: <140 mg/dL before meals <180 mg/dL all other times of the day Blood specimen (specimen) 09/22/2016 8:17 AM EST 09/22/2016 8:17 AM EST Alirio Esparza MD POINT OF CARE TEST ORDERABLES Performing Organization Address City/[facility]/ZIP Co de Phone Number [facility] [place] [address] * POCT Glucose (09/22/2016 4:01 AM EST) Glucose, POC 135 65 - 199 mg/dL [facility] Comment: Supplemental ranges: <140 mg/dL before meals <180 mg/dL all other times of the day Blood specimen (specimen) 09/22/2016 4:01 AM EST 09/22/2016 4:01 AM EST Alirio Esparza MD POINT OF CARE TEST ORDERABLES [facility] [place] [address] * Scan, Peripheral Blood (09/22/2016 4:00 AM EST) Plat estimate Normal [facility] RBC Morphology Abnormal [facility] Macrocyte 1-5 /HPF [facility] Plat, Giant Less than 1 /HPF [facility] Blood specimen (specimen) 09/22/2016 4:00 AM EST 09/22/2016 4:34 AM EST Narrative Resulting Agency Comment Spec In Lab Alirio Esparza MD HEMATOLOGY ORDERABL ES Performing Organization Address [facility] Co de Phone Number [facility] [place] [address] * Electrolytes panel (09/22/2016 4:00 AM EST) Pathologist [facility] Sodium 145 135 - 145 mmol/L UNIVERSITY [...] CHEMISTRY ORDERABLE S Performing Organization Address [facility] Co de Phone Number [facility] [place] [address] * (ABNORMAL) Differential, Automated (09/22/2016 4:00 AM EST) Pathologist [facility] Neutrophil % 70.9 % [facility] Neutrophil Absolute 5.33 1.70 - 6.10 x10(3)/[facility] Lymph % 9.1 % [facility] Lymphocytes Abs 0.7(L) 0.9 - 3.2 x10(3)/[facility] Monocyte % 18.0 % [facility] Monocyte Abs 1.4(H) 0.3 - 0.9 x10(3)/[facility] Eos % 0.0 % [facility] Eosinophils Abs 0.0 0.0 - 0.4 x10(3)/[facility] Basophil % 0.1 % [facility] Baso Absolute 0.0 0.0 - 0.1 x10(3)/[facility] Immature Gran % 1.90 % [facility] Comment: Immature granulocytes(IG's)percentage and absolute count will include metamyelocytes, myelocytes, and promyelocytes. Blood smears from CBCs yielding IG's will be scanned manually for concordance. If this scan disagrees with the automated IG or if promyelocytes are noted, a manual differential will be performed. Immature Gran Absolute 0.14(H) 0.00 - 0.04 x10(3)/[facility] Blood specimen (specimen) 09/22/2016 4:00 AM EST 09/22/2016 4:34 AM EST Narrative Resulting Agency Comment Spec In Lab Alirio Esparza MD HEMATOLOGY ORDERABL ES [facility] [place] [address] * (ABNORMAL) Hemogram (09/22/2016 4:00 AM EST) White Blood Cell 7.5 4.0 - 9.5 x10(3)/[facility] Red Blood Cell 2.93(L) 4.00 - 5.21 x10(6)/[facility] Hemoglobin 9.2(L) 11.7 - 15.5 gm/dL [...] Platelet 161 145 - 357 x10(3)/mc L [facility] RDW Standard Deviation 44.0 37.0 - 46.0 fL [facility] RDW coefficient of variation 12.6 11.5 - 14.1 % [facility] Mean Platelet Volume 9.3 7.6 - 12.9 fL [facility] NRBC% auto 0.3 % [facility] NRBC Absolute 0.020(H) 0.000 - 0.000 x10(3)/mc L [facility] Blood specimen (specimen) 09/22/2016 4:00 AM EST 09/22/2016 4:34 AM EST Narrative Resulting Agency Comment Spec In Lab Alirio Esparza MD HEMATOLOGY ORDERABL ES [facility] [place] [address] * (ABNORMAL) Cardiac Enzymes (09/22/2016 4:00 AM [...] consensus document of the Joint Society of Cardiology/[place] College of Cardiology Committee for the redefinition of myocardial infarction. ??Journal of the [place] College of Cardiology 2000; 36: 959-969] Creatine Kinase 338(H) 0 - 160 unit/L [facility] Blood specimen (specimen) 09/22/2016 4:00 AM EST 09/22/2016 4:34 AM EST Narrative Resulting Agency Comment Spec In Lab Alirio Esparza MD CHEMISTRY ORDERABLE S Performing Organization Address City/State/[facility] Co de Phone Number [facility] [place] [address] * (ABNORMAL) Glucose, fasting (09/22/2016 4:00 AM [...] of Diabetes Mellitus, Position Statement from the [place] Diabetes Association. ??Diabetes Care, Volume 33, Supplement 1, Aug 2009 Blood specimen (specimen) 09/22/2016 4:00 AM EST 09/22/2016 4:34 AM EST Narrative Resulting Agency Comment Spec In Lab Alirio Esparza MD CHEMISTRY ORDERABLE S Performing Organization Address City/[facility]/ZIP Co de Phone Number [facility] [place] [address] * (ABNORMAL) Creatinine (09/22/2016 4:00 AM EST) Creatinine 0.69(L) 0.70 - 1.20 mg/dL [facility] Comment: Please note that the pediatric reference intervals supplied above were not validated at [facility]. Results from pediatric patients should be interpreted in conjunction to the patient's age, height and muscle mass. Est Glomerular Filtration Rate >60 >=60 MAYO [...] the following links into your internet browser. [email or web address] Blood specimen (specimen) 09/22/2016 4:00 AM EST 09/22/2016 4:34 AM EST Narrative Resulting Agency Comment Spec In Lab Alirio Esparza MD CHEMISTRY ORDERABLE S Performing Organization Address [facility]/ZIP Co de Phone Number [facility] [place] [address] * BUN (09/22/2016 4:00 AM EST) Blood Urea Nitrogen 10 8 - 18 mg/dL [facility] Blood specimen (specimen) 09/22/2016 4:00 AM EST 09/22/2016 4:34 AM EST Narrative Resulting Agency Comment Spec In Lab Alirio Esparza MD CHEMISTRY ORDERABLE S Performing Organization Address City/[facility]/ZIP Co de Phone Number [facility] [place] [address] * POCT Glucose (09/21/2016 9:59 PM EST) Glucose, POC 146 65 - 199 mg/dL [facility] Comment: Supplemental ranges: <140 mg/dL before meals <180 mg/dL all other times of the day Blood specimen (specimen) 09/21/2016 9:59 PM EST 09/21/2016 9:59 PM EST Alirio Esparza MD POINT OF CARE TEST ORDERABLES [facility] [place] [address] * POCT Glucose (09/21/2016 7:26 PM EST) Glucose, POC 152 65 - 199 mg/dL [facility] Comment: Supplemental ranges: <140 mg/dL before meals <180 mg/dL all other times of the day Blood specimen (specimen) 09/21/2016 7:26 PM EST 09/21/2016 7:26 PM EST Alirio Esparza MD POINT OF CARE TEST ORDERABLES [facility] [place] [address] * POCT Glucose (09/21/2016 6:00 PM EST) Glucose, POC 146 65 - 199 mg/dL [facility] Comment: Supplemental ranges: <140 mg/dL before meals <180 mg/dL all other times of the day Blood specimen (specimen) 09/21/2016 6:00 PM EST 09/21/2016 6:00 PM EST Alirio Esparza MD POINT OF CARE TEST ORDERABLES [facility] [place] [address] * (ABNORMAL) BLOOD GAS 2 ARTERIAL (09/21/2016 4:42 PM EST) pH, Arterial 7.35(L) 7.35 - 7.45 [facility] PCO2, Arterial 48(H) 35 - 45 mmHg [facility] PO2, Arterial 108(H) 85 - 104 mmHg [facility] Bicarbonate, Arterial 26.0 20.0 - 26.0 mmol/L [facility] [place] Excess, Arterial 0.5 -3.0 - 3.0 mmol/L [facility] Hgb Blood Gas 10.4(L) 11.7 - 15.5 gm/dL [facility] Oxyhemoglobin, Arterial 96.2 94.0 - 97.0 % [facility] Carboxyhemoglob in, Arterial 0.0 % [facility] [...] [facility] FIO2 Art 40 % [facility] PF Ratio Art 270 [facility] Blood specimen (specimen) 09/21/2016 4:42 PM EST 09/21/2016 4:42 PM EST Alirio Esparza MD POINT OF CARE TEST ORDERABLES Performing Organization Address [facility] Co de Phone Number [facility] [place] [address] * POCT Glucose (09/21/2016 4:07 PM EST) Glucose, POC 150 65 - 199 mg/dL [facility] Comment: Supplemental ranges: <140 mg/dL before meals <180 mg/dL all other times of the day Blood specimen (specimen) 09/21/2016 4:07 PM EST 09/21/2016 4:07 PM EST Alirio Esparza MD POINT OF CARE TEST ORDERABLES Performing Organization Address [facility] Co de Phone Number [facility] [place] [address] * (ABNORMAL) Hemoglobin (09/21/2016 4:05 PM EST) Hemoglobin 9.9(L) 11.7 - 15.5 gm/dL [facility] Blood specimen (specimen) 09/21/2016 4:05 PM EST 09/21/2016 4:20 PM EST Narrative Resulting Agency Comment Spec In Lab Alirio Esparza MD HEMATOLOGY ORDERABL ES Performing Organization Address [facility] Co de Phone Number [facility] [place] [address] * Potassium (09/21/2016 4:05 PM EST) Potassium [...] CHEMISTRY ORDERABLE S Performing Organization Address [facility] Co de Phone Number [facility] [place] [address] * POCT Glucose (09/21/2016 2:52 PM EST) Glucose, POC 117 65 - 199 mg/dL [facility] Comment: Supplemental ranges: <140 mg/dL before meals <180 mg/dL all other times of the day Blood specimen (specimen) 09/21/2016 2:52 PM EST 09/21/2016 2:52 PM EST Alirio Esparza MD POINT OF CARE TEST ORDERABLES Performing Organization Address [facility] Phone Number [facility] [place] [address] * POCT Glucose (09/21/2016 1:51 PM EST) Glucose, POC 108 65 - 199 mg/dL [facility] Comment: Supplemental ranges: <140 mg/dL before meals <180 mg/dL all other times of the day Blood specimen (specimen) 09/21/2016 1:51 PM EST 09/21/2016 1:51 PM EST Alirio Esparza MD POINT OF CARE TEST ORDERABLES Performing Organization Address [facility] Co de Phone Number [facility] [place] [address] * POCT Glucose (09/21/2016 12:54 PM EST) Glucose, POC 128 65 - 199 mg/dL [facility] Comment: Supplemental ranges: <140 mg/dL before meals <180 mg/dL all other times of the day Blood specimen (specimen) 09/21/2016 12:54 PM EST 09/21/2016 12:54 PM EST Alirio Esparza MD POINT OF CARE TEST ORDERABLES Performing Organization Address City/[facility]/ZIP Co de Phone Number [facility] [place] [address] * EKG 12 Lead (09/21/2016 12:26 PM EST) Ventricular rate 87 BPM MUSE SYSTEM Atrial Rate 87 BPM MUSE SYSTEM P-R Interval 256 ms MUSE SYSTEM QRS Duration 90 ms MUSE SYSTEM Q-T Interval 406 ms MUSE SYSTEM QTC Calculated (Bezet) 488 ms MUSE SYSTEM Calculated P [place] 24 degrees MUSE SYSTEM Calculated R [place] 21 degrees MUSE SYSTEM Calculated T [place] -5 degrees MUSE SYSTEM INTERPRETATION Sinus rhythm with 1st degree A-V block Nonspecific T wave abnormality Prolonged QT Abnormal ECG When compared with ECG of 19-MAY-2016 11:43, [place] interval has increased T wave inversion now evident in inferior and midanterior leads Confirmed by MD ESTES EDWARD ([id number]) on 09/21/2016 1:40:59 PM MUSE SYSTEM 09/21/2016 12:2 6 PM EST 09/21/2016 1:40 PM EST Alirio Esparza MD ECG ORDERABLES Performing Organization Address [facility] Co de Phone Number MUSE SYSTEM * [...] course of the esophagus and below the [id number]. There is a right IJ PA catheter [...] the course of theesophagus and below the [id number]-ix-djkn. There is a right IJ PA catheter [...] [facility] FIO2 Art 100 % [facility] PF Ratio Art 356 [facility] Blood specimen (specimen) 09/21/2016 12:20 PM EST 09/21/2016 12:20 PM EST Alirio Esparza MD POINT OF CARE TEST ORDERABLES Performing Organization Address City/State/[facility] Co de Phone Number [facility] [place] [address] * (ABNORMAL) BLOOD GAS 2 ARTERIAL (09/21/2016 [...] [facility]ICAL CENTER [facility] FIO2 Art 95 % [facility] Flow Art 0.7 LPM [facility] PF Ratio Art 313 [facility] Temp Art 36.7 Celsius [facility] Blood specimen (specimen) 09/21/2016 10:54 AM EST 09/21/2016 10:54 AM EST Alirio Esparza MD POINT OF CARE TEST ORDERABLES Performing Organization Address City/State/[facility] Co de Phone Number [facility] [place] [address] * Thrombin time (09/21/2016 10:50 AM EST) [...] HEMATOLOGY ORDERABLE S Performing Organization Address [facility] Co de Phone Number [facility] [place] [address] * Fibrinogen (09/21/2016 10:50 AM EST) Fibrinogen [...] HEMATOLOGY ORDERABLE S Performing Organization Address [facility] Co de Phone Number [facility] [place] [address] * APTT (09/21/2016 10:50 AM EST) Partial [...] HEMATOLOGY ORDERABLE S Performing Organization Address City/[facility] Co de Phone Number [facility] [place] [address] * (ABNORMAL) Prothrombin Time (09/21/2016 10:50 AM [...] [facility] Co de Phone Number [facility] [place] [address] * (ABNORMAL) Hemogram (09/21/2016 10:50 AM EST) [...] RDW Standard Deviation 42.6 37.0 - 46.0 [facility] RDW coefficient of variation 12.1 11.5 - 14.1 % [facility] Mean Platelet Volume 9.2 7.6 - 12.9 [facility] NRBC% auto 0.1 % [facility] NRBC Absolute 0.020(H) 0.000 - 0.000 x10(3)/mc L [facility] Blood specimen (specimen) 09/21/2016 10:50 AM EST 09/21/2016 10:56 AM EST Narrative Resulting Agency Comment Spec In Lab Luis Enrique Quarles MD HEMATOLOGY ORDERABLE S Performing Organization Address [facility] Co de Phone Number [facility] [place] [address] * Prepare Platelets, Apheresis (09/21/2016 10:30 AM EST) Pathologist [facility] Dispensed? Yes [facility] Blood specimen (specimen) 09/21/2016 10:30 AM EST 09/21/2016 10:28 AM EST Alirio Esparza MD BLOOD BANK PRODUCT ORDERABLES Performing Organization Address [facility] Co oh Phone Number [facility] [place] [address] * (ABNORMAL) BLOOD GAS 2 ARTERIAL (09/21/2016 10:05 AM EST) pH, Arterial 7.33(L) 7.35 - 7.45 [facility] PCO2, Arterial 54(Critic al) 35 - 45 mmHg [facility] Comment:Noted by brass instrument repair technician. PO2, Arterial 218(H) 85 - 104 [...] [facility] Comment: Noted by brass instrument repair technician. Please note: Patients with WBC >100,000 [...] MEDICAL CENTER [facility] Temp Art 37.0 Celsius [facility] Blood specimen (specimen) 09/21/2016 10:05 AM EST 09/21/2016 10:05 AM EST Alirio Esparza MD POINT OF CARE TEST ORDERABLES [facility] [place] [address] * (ABNORMAL) BLOOD GAS 2 ARTERIAL (09/21/2016 9:44 AM EST) pH, Arterial 7.22(Criti gabrielle) 7.35 - 7.45 [facility] Comment:Noted by brass instrument repair technician. PCO2, Arterial 70(Critica l) 35 - 45 mmHg [facility] Comment:Noted by brass instrument repair technician. PO2, Arterial 224(H) 85 - 104 [...] ORDERABLES [facility] [place] [address] * (ABNORMAL) Hemoglobin (09/21/2016 9:42 AM EST) Hemoglobin 7.2(L) 11.7 - 15.5 gm/dL [facility] Blood specimen (specimen) 09/21/2016 9:42 AM EST 09/21/2016 9:51 AM EST Narrative Resulting Agency Comment Spec In Lab Alirio Esparza MD HEMATOLOGY ORDERABL ES Performing Organization Address [facility]/ZIP Co de Phone Number [facility] [place] [address] * Platelet count (09/21/2016 9:42 AM EST) Platelet 159 145 - 357 x10(3)/mc L [facility] Immature Plt % 1.6 0.0 - 7.4 % [facility] Comment: Limitation of the Immature Platelet Fraction (IPF)-May be less reliable when the platelet count is less than 92g065/uL due to statistical imprecision. The IPF value [...] in a decreased state of production. References: [employer] The Clinical Value of the Immature Platelet Fraction (IPF) in Cell Recovery Document Number 10-1143 12/2010 [employer] The Role of the Immature Platelet Fraction (IPF) in the Differential Diagnosis of Thrombocytopenia, Document MKT-10-1209 V012/11/13 P012/13 Blood specimen (specimen) 09/21/2016 9:42 AM EST 09/21/2016 9:51 AM EST Narrative Resulting Agency Comment Spec In Lab Alirio Esparza MD HEMATOLOGY ORDERABL ES Performing Organization Address [facility] Co de Phone Number [facility] [place] [address] * (ABNORMAL) Hematocrit (09/21/2016 9:42 AM EST) [...] MD HEMATOLOGY ORDERABL ES Performing Organization Address [facility] de Phone Number [facility] [place] [address] * Fibrinogen (09/21/2016 9:42 AM EST) Fibrinogen [...] HEMATOLOGY ORDERABL ES Performing Organization Address [facility] Co de Phone Number [facility] [place] [address] * (ABNORMAL) BLOOD GAS 2 ARTERIAL (09/21/2016 [...] MEDICAL CENTER [facility] Temp Art 37.0 Celsius [facility] Blood specimen (specimen) 09/21/2016 9:10 AM EST 09/21/2016 9:10 AM EST Alirio Esparza MD POINT OF CARE TEST ORDERABLES Performing Organization Address City/[facility] Co de Phone Number [facility] [place] [address] * Surgical Pathology Report (09/21/2016 9:09 AM EST) Final Diagnosis [id number] ?Location: 3T The signing pathologist has (i) [...] MD PATHOLOGY/CYTOLOGY ORDERABLES Performing Organization Address [facility]/ZIP Co de Phone Number [facility] [place] [address] * Specimen to Pathology (surgical or derm) (09/21/2016 9:09 AM EST) AP Specimen 09/21/2016 9:09 AM EST 09/21/2016 9:09 AM EST Narrative [facility] - 09/21/2016 9:09 AM EST Specimen requisition ordered. ??Separate Pathology report to follow Alirio Esparza MD PATHOLOGY/CYTOLOGY ORDERABLES [facility] [place] [address] * (ABNORMAL) BLOOD GAS 2 ARTERIAL (09/21/2016 [...] ORDERABLES [facility] [place] [address] * (ABNORMAL) BLOOD GAS 2 ARTERIAL (09/21/2016 [...] MEDICAL CENTER LABOR[facility] FIO2 Art 95 % [facility] Flow Art 1.1 LPM [facility] PF Ratio Art 298 [facility] Temp Art 35.6 Celsius [facility] Blood specimen (specimen) 09/21/2016 8:18 AM EST 09/21/2016 8:18 AM EST Alirio Esparza MD POINT OF CARE TEST ORDERABLES [facility] [place] [address] * Prepare RBC (09/21/2016 7:05 AM EST) Dispensed? Yes [facility] Blood specimen (specimen) 09/21/2016 7:05 AM EST 09/21/2016 7:02 AM EST Alirio Esparza MD BLOOD BANK PRODUCT ORDERABLES [facility] [place] [address] * POCT Glucose (09/21/2016 6:42 AM EST) Glucose, POC 104 65 - 199 mg/dL [facility] Comment: Supplemental ranges: <140 mg/dL before meals <180 mg/dL all other times of the day Blood specimen (specimen) 09/21/2016 6:42 AM EST 09/21/2016 6:42 AM EST Alirio Esparza MD POINT OF CARE TEST ORDERABLES [facility] [place] [address] documented in this encounter Visit Diagnoses Diagnosis [...] dose on Wed09/21/16 at 1230, Until Discontinued, [place] teeth, Routine Given 09/25/2016 9:40 AM EST [...] if phenyleprine and/or vasopressin ineffective.Call pager # [phone] if initiated., Routine Rate/Dose Change 09/21/2016 2:27 [...] 2.0 L/min/M2. Maximum volume 2 L. Call enginehouse brakeman for additional fluid orders: pager #[phone]. Rate/Dose Verify 09/22/2016 10:00 AM EST 10 [...] dose on Wed09/21/16 at 1230, Until Discontinued, [place] teeth, Routine 0900 (Not Given - Provider: [...] Whitfield RN) 0300 (Given - Provider: Alie Whiftield RN - Comment: given earlier in shift)1100 [...] Routine documented in this encounter Care Teams Wedding Makeup Artist Relationship Specialty Start Date End Date Deborah Quiroga APRN PCP - General Family Medicine 03/24/16 02/04/23 documented as of this encounter
--- OUTSIDE RECORDS SUMMARY | 2024-04-11 14:21 | XMS_ITS | Encounter Summary ---
[place] [address] Care Team Providers Care Manager Distribution Center Name Role Phone Deborah Quiroga APRN Primary Care Provider [phone] Encounter Details Date Type Department Care Team (Late st Contact Info) Description 09/17/2016 External Results Hematology [place] [address] Alexandrea Greenwood RN Neutropenia, unspecified type Social [...] 4:15 PM EDT Office Visit Dermatology at [place] [address] [place] [phone] Marek Bonilla MD [address], [place] [address] documented as of this encounter Procedures Procedure [...] documented in this encounter Care Teams Manager Distribution Center Relationship Specialty Start Date End Date Deborah Quiroga, DATA CENTER PROJECT MANAGER PCP - General Family Medicine 03/24/16 02/04/23 documented as of this encounter
--- OUTSIDE RECORDS SUMMARY | 2024-04-11 14:21 | XMS_ITS | Encounter Summary ---
[place] [address] Care Team Providers Care Member Certification Manager Name Role Phone JunaidDeborah APRN Primary Care Provider [phone] Reason for Visit * Reason Onset Date Comments Labs Only 09/16/2016 Encounter Details Date Type Department Care Team (Late st Contact Info) Description 09/16/2016 Telephone Hematology [place] [phone] Alexandrea Greenwood, RN Labs Only Social History [...] 11:09 AM EST Message received from clinical secretary: Purnima is having her Neulasta done today at [facility]. ??She is wondering if we want to do a CBC prior to the injection? [phone] Borjas: CBC is fine RN spoke with Swapna at [facility] who confirms they can draw CBC on pt today, RN faxed CBC w/diff to [facility] lab at [phone] RN relayed to pt that CBC ordered had been faxed to [facility], pt will have CBC drawn today prior to neulasta injection. documented in this encounter Plan of Treatment Upcoming Encounters Date Type Department Care Team (Late st Contact Info) Description 03/01/2025 4:15 PM EDT Office Visit Dermatology at [place] [address] [place] [address] Marek Bonilla MD [address] [place] [address] documented as of this encounter Results * [...] type documented in this encounter Care Teams Member Certification Manager Relationship Specialty Start Date End Date Deborah Quiroga APRN PCP - General Family Medicine 03/24/16 02/04/23 documented as of this encounter
--- OUTSIDE RECORDS SUMMARY | 2024-04-11 14:21 | XMS_ITS | Encounter Summary ---
[place] [address] Care Team Providers Care Cardboard Inserter Name Role Phone Deborah Quiroga APRN Primary Care Provider [phone] Reason for Visit * Reason Onset Date Comments Prior Authorization 09/11/2016 Neulasta Encounter Details Date Type Department Care Team (Late st Contact Info) Description 09/11/2016 Telephone Hematology [place] [phone] Monica Wick Prior Authorization (Neulasta ) Social [...] AM EST Prior Auth for Neulasta (Approved) [facility] is a covered facility under the members plan. ID# [id number] Call placed to [phone] Rationale: Can you please start a PA for this pt to receive as outpatient at [facility] on 09/16/16? 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 ??Her last ANC was 0.56 (or 560) on 08/04/16. ??This will need to be approved through her medical as out patient. J code for neulasta. ?? [id number]. Spoke w/ Anna Marie Call Reference [id number] Copay: $ Deductible is not met, patient will have out of pocket costs until deductible is met. documented in this encounter Plan of Treatment Upcoming Encounters Date Type Department Care Team (Late st Contact Info) Description 03/01/2025 4:15 PM EDT Office Visit Dermatology at [place] [address] [place] [address] Marek Bonilla MD [address], [place] [address] documented as of this encounter Visit Diagnoses Not on filedocumented in this encounter Care Teams Cardboard Inserter Relationship Specialty Start Date End Date Deborah Quiroga APRN PCP - General Family Medicine 03/24/16 02/04/23 documented as of this encounter
--- OUTSIDE RECORDS SUMMARY | 2024-04-11 14:21 | XMS_ITS | Encounter Summary ---
[place] [address] Care Team Providers Care Subgrade Roller Operator Name Role Phone Ashley Quirogan Cornelius ANURAG Primary Care Provider [phone] Reason for Visit * Reason Onset Date Comments Medical Care Coordination 09/14/2016 Encounter Details Date Type Department Care Team (Late st Contact Info) Description 09/14/2016 Telephone Hematology [place] [phone] Alexandrea Greenwood RN Medical Care Coordination Social [...] office secretary: Injection/Infusion Referral Call placed to [facility] Infusion Room Spoke charis Bragg. Services to be provided for pt are: [facility] 09/16/16 [facility] confirmed they would provide services to pt and would contact with appointment time. Pt aware to expect the phone call ??orders faxed to [phone]). documented in this encounter Plan of Treatment Upcoming Encounters Date Type Department Care Team (Late st Contact Info) Description 03/01/2025 4:15 PM EDT Office Visit Dermatology at [place] [address] [place] [phone] Marek Bonilla MD [address] [place] [address] documented as of this encounter Visit Diagnoses Not on filedocumented in this encounter Care Teams Subgrade Roller Operator Relationship Specialty Start Date End Date Deborah Quiroga APRN PCP - General Family Medicine 03/24/16 02/04/23 documented as of this encounter
--- OUTSIDE RECORDS SUMMARY | 2024-04-11 14:21 | XMS_ITS | Encounter Summary ---
[place] [address] Care Team Providers Care Manager Foreign Name Role Phone Ashley Quirogan Cornelius ANURAG Primary Care Provider [phone] Reason for Visit * Reason Onset Date Comments Medication Management 09/14/2016 Encounter Details Date Type Department Care Team (Late st Contact Info) Description 09/14/2016 Telephone Hematology [place] [phone] Alexandrea Greenwood, solar pv installer Management Social History Tobacco Use Types Packs/Day [...] 09/14/2016 9:12 AM EST Message received from junior legal secretary: Purnima called, asking for clarification [...] 4:15 PM EDT Office Visit Dermatology at [place] [address] [place] [address] Marek Bonilla MD [address] [place] [address] documented as of this encounter Visit Diagnoses Not on filedocumented in this encounter Care Teams Manager Foreign Relationship Specialty Start Date End Date Deborah Quiroga APRN PCP - General Family Medicine 03/24/16 02/04/23 documented as of this encounter
--- OUTSIDE RECORDS SUMMARY | 2024-04-11 14:21 | XMS_ITS | Encounter Summary ---
[place] [address] Care Team Providers Care Cat Swamper Name Role Phone Junaid, Deborah Shields APRN Primary Care Provider [phone] Reason for Visit * Auth/Cert Specialty Diagnoses / Procedures Referred By Crispin t Referred To Contact Diagnoses Aortic stenosis Procedures PRO REPLACE AORT VALV, PROSTH VALV @REPLACE AORTIC VALVE, OPEN, W\CPB, W\PROSTHETIC VALVE (WRVU 41.32) Referral ID Status Reason Start Date Expiration Date Visits Re quested Visits Authorized [id number] 1 1 Encounter Details Date Type Department Care Team (Late st Contact Info) Description 09/21/2016 7:25 AM EST Anesthesia Event [place] [address] Luis Enrique Quarles MD [facility] [place] [address] Henrik Cooper MD [facility] [place] [address] Anesthesia Record Procedure Summary Procedure Name Responsible [...] Sternotomy 0844 CV Bypass init 1009 Green House Manager 1014 An Clamp Remove 1031 CP Bypass [...] Tube 09/21/16 (#28 angled chest tube to [place]: left: pericardial); Left; 09/22/16; 1119 09/21/16 0000 by Toshia Alejandre RN 09/22/16 1119 by Vero Bonilla RN Chest Tube 09/21/16 (#28 straig ht chest tube to [place]; right: mediastinal'); Right; mediastinum; 09/22/16; 1118 09/21/16 0000 by Toshia Alejandre RN 09/22/16 1118 by Vero Bonilla RN (RETIRED) Peripheral IV Line - Single Lumen 09/21/16; 0648; metacarpal vein (top of hand), left; nids-ozr-btpvny catheter system; 20 gauge; valdo Arteaga; 09/23/16; 1251 09/21/16 0648 by Bhumi Arteaga RN 09/23/16 1251 by Henirk Webb RN (RETIRED) Percutaneous Central Line - [...] Cooper MD - 09/21/2016 6:50 PM EST [facility] Department of Anesthesiology Post-procedure Note Patient: Purnima Thacker Procedure Summary Date Anesthesia Start Anesthesia Stop Room / Location 09/21/[address] [facility] OR 16 / [facility] MAIN OR Procedure Diagnosis Surgeon Responsible Provider @REPLACE AORTIC VALVE, OPEN, W\CPB, W\PROSTHETIC VALVE (WRVU 41.32) (N/A Chest); @AORTOPLASTY FOR SUPRAVALVULAR STENOSIS (WRVU 29.33) (N/A Chest) () Alirio Francisco MD Clark, Jeffrey A, MD All Anesthesia Providers: Anesthesiologist: Luis Enrique Quarles MD Executive Candidate Developer: Henrik Cooper MD Last (1hr) Vitals: BP Temp 36.1 ??C (97 ??F) (09/21/16 1800) Pulse 79 (09/21/16 1800) Resp 11 (09/21/16 1800) SpO2 98 % (09/21/16 1800) Patient Location: [facility] Level of Consciousness: Sedated (Pharmacologic/Intentional) [...] 4:15 PM EDT Office Visit Dermatology at [place] [address] [facility] [place] [address] Marek Bonilla MD [address] [place] [address] RD, [address] [place] [address] documented as of this encounter Visit Diagnoses [...] mg documented in this encounter Care Teams Cat Swamper Relationship Specialty Start Date End Date Deborah Quiroga, DIRECTOR OF MARKET ANALYSIS PCP - General Family Medicine 03/24/16 02/04/23 documented as of this encounter
--- OUTSIDE RECORDS SUMMARY | 2024-04-11 14:22 | XMS_ITS | Encounter Summary ---
Author Organization [facility], [facility] Address [facility] [place] [address] Care Team Providers Care Furniture Finisher Apprentice Name Role Phone Deborah Quiroga ANURAG Primary Care Provider [phone] Encounter Details Date Type Department Care Team (Late st Contact Info) Description 05/22/2016 Orders Only Cardiology at [address] [address] Chele Randolph PA [facility] [place] [address] Aortic valve stenosis, unspecified etiology Social History [...] EDT Office Visit Dermatology at [place] [address] [facility] [place] [address] Marek Bonilla MD [address], [place] [address] documented as of this encounter Procedures Procedure Name Priority Date/Time Associated Diagnosis Comments CARDIAC CATHETERIZATION Routine 06/03/20 16 9:13 AM EDT Aortic valve stenosis, unspecified etiology documented in this encounter Results * CARDIAC CATHETERIZATION (06/03/2016 9:13 AM EDT) Anatomical Region Laterality Modality Other Narrative 06/03/2016 10:13 AM EDT ?[facility] ? Cardiac Catheterization/Intervention Report ? Patient Name: Kirstie, Purnima M. ? Procedure Date: 06/03/2016 ? A #: [id number] ? Primary Physician: Nitesh Escobedo ? Case #: [id number] ? File Name: [id number] ? Catheterization Order Number: [id number] ? [facility] ? Final Report [place], [place] ? Patient Name: ? Purnima M. Kirstie ? ID#: ?[id number] ? : ?1955 ? Procedure Date: ? [...] no symptom, no angina (w/i 14 days). Malaysian ?Cardiovascular Society angina class was 0. This [...] Procedure Note Nitesh Escobedo MD - 09/21/2016 [facility] Cardiac Catheterization/Intervention Report Patient Name: Purnima Thacker Procedure Date: 06/03/2016 A #: [id number] Primary Physician: Nitesh Escobedo Case #: [id number] File Name: [id number] Catheterization Order Number: [id number] [facility] FinalReport [place], [place] Patient Name: Purnima Thacker ID#:[id number] :1955 Procedure Date: June 03, 2016 Case [...] with: no symptom, no angina (w/i 14 days).[place] Cardiovascular Society angina class was 0. This [...] etiology documented in this encounter Care Teams Furniture Finisher Apprentice Relationship Specialty Start Date End Date Deborah Quiroga APRN PCP - General Family Medicine 03/24/16 02/04/23 documented as of this encounter
--- OUTSIDE RECORDS SUMMARY | 2024-04-11 14:22 | XMS_ITS | Encounter Summary ---
Author Organization [facility] [place] [address] Care Team Providers Care Waistband Setter Lockstitch Name Role Phone Junaid Deborah Shields APRN Primary Care Provider [phone] Encounter Details Date Type Department Care Team (Latest Contact Info) Description 05/19/2016 11:20 AM EDT Laboratory [place] [phone] Nonrheumatic aortic valve stenosis Social History Tobacco [...] EDT Office Visit Dermatology at [place] [address] [place] [address] Marek Bonilla MD [address], [place] [address] documented as of this encounter Procedures Procedure Name Priority Date/Time Associated Diagnosis Comments SCAN, PERIPHERAL BLOOD Routine 05/19/2016 11:32 AM EDT HEMOGRAM Routine 05/19/2016 11:32 AM EDT Nonrheumatic aortic valve stenosis DIFFERENTIAL, AUTOMATED Routine 05/19/2016 11:32 AM EDT Nonrheumatic aortic valve stenosis TYPE AND SCREEN, SDP (FUTURE SURGERY, [facility] SAME [facility] PROGRAM ONLY) Routine 05/19/2016 11:32 [...] Peripheral Blood (05/19/2016 11:32 AM EDT) Pathologist [facility] Plat estimate Normal [facility] RBC Morphology Normal [facility] Blood specimen (specimen) 05/19/2016 11:32 AM EDT 05/19/2016 11:41 AM EDT Narrative Resulting Agency Comment Spec In Lab Alirio Esparza MD HEMATOLOGY ORDERABL ES [facility] [place] [address] * (ABNORMAL) Differential, Automated (05/19/2016 11:32 AM EDT) [facility] Neutrophil % 25.9 % [facility] Neutrophil Absolute 0.42(Crit ical) 1.70 - 6.10 x10(3)/mc L [facility] Comment: This result has been called to DR ALIRIO ESPARZA by Alivia Ibarra on 05 19 2016 at 1228, and has been read back. Lymph % 59.9 % [facility] Lymphocytes Abs 1.0 0.9 - 3.2 x10(3)/mc L [facility] Monocyte % 13.0 % [facility] Monocyte Abs 0.2(L) 0.3 - 0.9 x10(3)/[facility] Eos % 0.6 % [facility] Eosinophils Abs 0.0 0.0 - 0.4 x10(3)/ L [facility] Basophil % 0.6 % [facility] Baso Absolute 0.0 0.0 - 0.1 x10(3)/[facility] Immature Gran % 0.00 % [facility] Comment: Immature granulocytes(IG's)percentage and absolute count will include metamyelocytes, myelocytes, and promyelocytes. Blood smears from CBCs yielding IG's will be scanned manually for concordance. If this scan disagrees with the automated IG or if promyelocytes are noted, a manual differential will be performed. Immature Gran Absolute 0.00 0.00 - 0.04 x10(3)/[facility] Blood specimen (specimen) 05/19/2016 11:32 AM EDT 05/19/2016 11:41 AM EDT Narrative Resulting Agency Comment Spec In Lab Alirio Esparza MD HEMATOLOGY ORDERABL ES [facility] [place] [address] * (ABNORMAL) Hemogram (05/19/2016 11:32 AM EDT) White Blood Cell 1.6(Criti gabrielle) 4.0 - 9.5 x10(3)/ L [facility] Comment: This result has been called to DR ALIRIO ESPARZA by Alivia Ibarra on 05 19 2016 at 1228, and has been read back. Red Blood Cell 3.96(L) 4.00 - 5.21 x10(6)/mc L [facility] Hemoglobin 12.5 11.7 - 15.5 gm/dL [facility] Hematocrit 37.9 35.7 - 45.8 % [facility] Mean Cell Volume 95.7(H) 82.6 - 94.4 fL [facility] Mean Cell Hemoglobin 31.6 27.1 - 32.0 pg [facility] Mean Cell Hemoglobin Concentration 33.0 31.7 - 35.0 gm/dL [facility] Platelet 227 145 - 357 x10(3)/mc L [facility] RDW Standard Deviation 40.5 37.0 - 46.0 fL [facility] RDW coefficient of variation 11.5 11.5 - 14.1 % [facility] Mean Platelet Volume 8.4 7.6 - 12.9 fL [facility] NRBC% auto 0.0 % [facility] NRBC Absolute 0.000 0.000 - 0.000 x10(3)/mc L [facility] Blood specimen (specimen) 05/19/2016 11:32 AM EDT 05/19/2016 11:41 AM EDT Narrative Resulting Agency Comment Spec In Lab Alirio Esparza MD HEMATOLOGY ORDERABL ES Performing Organization Address City/State/[facility] Co de Phone Number [facility] [place] [address] * Antibody screen (05/19/2016 11:32 AM EDT) Ab Screen Interp Negative [facility] Expires at [id number] on: 07/03/2016 [facility] Comment: Corrected from 06/11/16 12:00 [Unknown] on 06/09/16 05:51 by Bethanie Tomlinson I.. Corrected from 07/03/16 12:00 [Unknown] on 05/21/16 06:00 by Shelia Barrera Blood specimen (specimen) 05/19/2016 11:32 AM EDT 05/19/2016 11:35 AM EDT Narrative Resulting Agency Comment Spec In Lab Alirio Esparza MD BLOOD BANK LAB ORDSylvia ALEJO [facility] [place] [address] * ABO/Rh Typing (05/19/2016 11:32 AM EDT) ABORH Type B Pos [facility] Blood specimen (specimen) 05/19/2016 11:32 AM EDT 05/19/2016 11:35 AM EDT Narrative Resulting Agency Comment Spec In Lab Alirio Esparza MD BLOOD BANK LAB BETH ALEJO Performing Organization Address City/[facility]/ZIP Co de Phone Number [facility] [place] [address] * Basic Metabolic Panel (non-fasting) (05/19/2016 11:32 AM EDT) Pathologist [facility] Glucose 86 65 - 199 mg/dL [facility] Comment:Diabetes: >=200 mg/d L plus symptoms Blood Urea Nitrogen 13 8 - 18 mg/dL [facility] Creatinine 0.95 0.70 - 1.20 mg/dL [facility] Comment: Please note that the pediatric reference intervals supplied above were not validated at [facility]. Results from pediatric patients should be interpreted [...] following links into your internet browser. [email or web address] Blood specimen (specimen) 05/19/2016 11:32 AM EDT 05/19/2016 11:41 AM EDT Narrative Resulting Agency Comment Spec In Lab Alirio Esparza MD CHEMISTRY ORDERABLE S [facility] [place] [id number] documented in this encounter Visit Diagnoses Diagnosis Nonrheumatic aortic valve stenosis Aortic valve disorders documented in this encounter Care Teams Waistband Setter Lockstitch Relationship Specialty Start Date End Date Deborah Quiroga APRN PCP - General Family Medicine 03/24/16 02/04/23 documented as of this encounter
--- OUTSIDE RECORDS SUMMARY | 2024-04-11 14:22 | XMS_ITS | Encounter Summary ---
[place] [address] Care Team Providers Care Instrument And Controls Technician Name Role Phone Deborah Quiroga ANURAG Primary Care Provider [phone] Reason for Visit * Reason Onset Date Comments Pre Procedure Call 06/18/2016 Encounter Details Date Type Department Care Team (Late st Contact Info) Description 06/18/2016 Telephone Hematology [place] [address] Alexandrea Greenwood RN Pre Procedure Call Social [...] 4:15 PM EDT Office Visit Dermatology at [place] [address] [facility] [place] [address] Marek Bonilla MD [address], [place] [address] documented as of this encounter Visit Diagnoses Not on filedocumented in this encounter Care Teams Instrument And Controls Technician Relationship Specialty Start Date End Date Deborah Quiroga APRN PCP - General Family Medicine 03/24/16 02/04/23 documented as of this encounter
--- OUTSIDE RECORDS SUMMARY | 2024-04-11 14:22 | XMS_ITS | Encounter Summary ---
[place] [address] Care Team Providers Care Public Space Attendant Name Role Phone Ashley Quirogan Cornelius ANURAG Primary Care Provider [phone] Encounter Details Date Type Department Care Team (Late st Contact Info) Description 07/03/2016 External Results Hematology [place] [address] Matthew Cervantes, DO [address] [place] [address] Social History Tobacco Use Types Packs/Day Years [...] 4:15 PM EDT Office Visit Dermatology at [place] [address] [facility] [place] [address] Marek Bonilla MD [address] [facility] A DERMATOLOGY [place], [place] [address] documented as of this encounter Procedures Procedure Name Priority Date/Time Associated Diagnosis Comments BONE MARROW ASPIRATION PERFO RMED WITH BONE MARRROW BIOPSY Routine 06/28/2016 documented in this encounter Results * BONE MARROW ASPIRATION PREFORMED WITH BONE MARRROW BIOPSY (06/28/2016) Matthew Cervantes DO GENERAL SURGI DANIEL ORDERABLES documented in this encounter Visit Diagnoses Not on filedocumented in this encounter Care Teams Public Space Attendant Relationship Specialty Start Date End Date Deborah Quiroga, CERAMICS TEST ENGINEER PCP - General Family Medicine 03/24/16 02/04/23 documented as of this encounter
--- OUTSIDE RECORDS SUMMARY | 2024-04-11 14:22 | XMS_ITS | Encounter Summary ---
[place] [address] Care Team Providers Care Rotary Drill Rig Operator Name Role Phone Deborah Quiroga ANURAG Primary Care Provider [phone] Encounter Details Date Type Department Care Team (Late st Contact Info) Description 07/31/2016 Orders Only [place] [address] Alexandrea Greenwood RN Neutropenia, unspecified type Social [...] 4:15 PM EDT Office Visit Dermatology at [place] [address] [facility] [place] [address] Marek Bonilla MD [address] [facility], [place] [address] documented as of this encounter Results * [...] specimen (specimen) 08/04/2016 12:05 PM EST Markel Borajs MD HEMATOLOGY ORDERAB LES EXTERNAL LAB documented in this encounter Visit Diagnoses Diagnosis Neutropenia, unspecified type documented in this encounter Care Teams Rotary Drill Rig Operator Relationship Specialty Start Date End Date Deborah Quiroga, LANDING GEAR MECHANIC PCP - General Family Medicine 03/24/16 02/04/23 documented as of this encounter
--- OUTSIDE RECORDS SUMMARY | 2024-04-11 14:22 | XMS_ITS | Encounter Summary ---
[place] [address] Care Team Providers Care Restaurant Recruiter Name Role Phone Deborah Quiroga APRN Primary Care Provider [phone] Encounter Details Date Type Department Care Team (Late st Contact Info) Description 08/18/2016 Orders Only [place] [address] Alirio Esparza MD Aortic valve stenosis, unspecified [...] 4:15 PM EDT Office Visit Dermatology at [place] [address] [facility] [place] [address] Marek Bonilla MD [address] [facility], [place] [address] documented as of this encounter Results * [...] intervals supplied above were not validated at [facility]. Results from pediatric patients [...] the following links into your internet browser. [email or web address] Blood specimen (specimen) 08/18/2016 4:50 PM EST 08/18/2016 5:03 PM EST Narrative Resulting Agency Comment Spec In Lab Alirio Esparza MD CHEMISTRY ORDERABLE S [facility] [place] [address] documented in this encounter Visit Diagnoses Diagnosis Aortic valve stenosis, unspecified etiology documented in this encounter Care Teams Restaurant Recruiter Relationship Specialty Start Date End Date Deborah Quiroga, PLASTER CASTER PCP - General Family Medicine 03/24/16 02/04/23 documented as of this encounter
--- OUTSIDE RECORDS SUMMARY | 2024-04-11 14:22 | XMS_ITS | Encounter Summary ---
Author Organization [facility] [place] [address] Care Team Providers Care Slag Dumper Name Role Phone Deborah Quiroga APRN Primary Care Provider [phone] Encounter Details Date Type Department Care Team (Latest Contact Info) Description 07/10/2016 2:54 PM EST - 07/10/2016 11:59 PM EST Hospital [place] [phone] Discharge Disposition: Home Social History Tobacco Use [...] EDT Office Visit Dermatology at [place] [address] [place] [address] Marek Bonilla MD [address], [place] [address] documented as of this encounter Procedures Procedure Name Priority Date/Time Associated Diagnosis Comments BONE MARROW FINAL REPORT Routine 07/10/2016 3:43 PM EST documented in this encounter Results * Bone Marrow Final Report (07/10/2016 3:43 PM EST) Final Diagnosis [id number] ?Location: [facility] The signing pathologist has (i) examined the relevant preparation(s) for the specimen(s) and (ii) rendered or confirmed the diagnosis(es). . ? Bone Marrow Final DIAGNOSIS BONE MARROW (PERIPHERAL SMEAR, ASPIRATE SMEAR, TOUCH PREP, CLOT SECTION, CORE BIOPSY); [OSR# [id number], COLLECTED 06/23/2016, 19 SLIDES]: ?? 1. ??Normocellular [...] clonal lymphoproliferative or myeloproliferative ? disorder (OSR# [id number]) ?Chromosome analysis on the marrow aspirate revealed a normal female karyotype; ?46,XX[25] ??(OSR# [id number]) Electronically signed by: ??Elian Guillen MD Verified: [...] 3/uL Band/Seg 0.52 x103/uL; Lymph 0.75 x103/uL; Gray 0.15 x103/uL; Eos 0.01%; Baso 0.01 x10 [...] plasma cells represent 3-4% of the cellularity [place] ? Polytypic plasma cell staining, high background Lambda ?Polytypic plasma cell staining, high background Block: ? B2 (Core biopsy 2) Fixative: ?? Formalin ANTIBODY: ?? RESULT/COMMENT CD3 ? Scattered small lymphocytes and lymphoid aggregates highlighted CD20 ?Few scattered small lymphocytes stain ( ?? <CD3 in aggregates) CD138 ? Scattered plasma cells represent 3-4% of the cellularity [place] ? Polytypic plasma cell staining, high background Lambda ?Polytypic plasma cell staining, high background Note: The immunoperoxidase stains reported above were developed and their performance characteristics determined by [facility]. ??They have not been cleared [...] CONSULTATION CASE A - 19 slides labeled [id number], collection date 06/23/2016. [id number] Report to: [facility] Surgical Pathology Department [facility], [facility], 2nd Floor [address] [place], [place] [address] 07/13/2016 11:38 AM EST [facility] Consult Case 07/10/2016 3:43 PM EST 07/10/2016 3:43 PM EST Nitesh Pina Jr., MD PATHOLOGY/CYTOLOGY O RDERABLES Performing Organization Address City/State/[facility] Co de Phone Number [facility] [place] [address] documented in this encounter Visit Diagnoses Not on filedocumented in this encounter Care Teams Slag Dumper Relationship Specialty Start Date End Date Deborah Quiroga, ANURAG PCP - General Family Medicine 03/24/16 02/04/23 documented as of this encounter
--- OUTSIDE RECORDS SUMMARY | 2024-04-11 14:22 | XMS_ITS | Encounter Summary ---
Author Organization [facility] Address [facility] [place] [address] Care Team Providers Care Recruiting Administrator Name Role Phone Junaid, Deborah Shields APRN Primary Care Provider [phone] Reason for Visit * Auth/Cert Specialty Diagnoses / Procedures Referred By Crispin t Referred To Contact Diagnoses AVS Procedures CARDIAC CATHETERIZATION Referral ID Status Reason Start Date Expiration Date Visits Re quested Visits Authorized [id number] 1 1 Encounter Details Date Type Department Care Team (Late st Contact Info) Description 06/03/2016 7:30 AM EDT - 06/03/2016 8:30 AM EDT [place] [phone] Mario Alberto Escobdeo MD [facility] [place] [address] CARDIAC CATHETERIZATION Social History Tobacco Use Types [...] by your doctor, do not take any rfzb-xni-cbhnyjz medicinesor herbal preparations without first discussing this with your doctor or pharmacist. There is the possibility of side effects and interactions when these are combined. Follow Up Care Who to call with questions or problems If there are any questions or problems that you think might be related to your cardiac cath or angioplasty, contact the resistor winder duplication specialist by calling [facility] at . * Patient Instructions* Felicia Corrigan - 06/03/2016 9:33 AM EDT Cardiology Instructions Call your doctor if: Chest pain, dyspnea, pain or swelling in legs occurs. If you have non-emergent questions between now and the time of your follow up appointments: -During 8am-5pm Wednesday through Wednesday call [phone] to speak with a nurse in the cardiology clinic -All other times call [phone] and ask to speak to the architectural design lecturer duplication specialist. MEDICATIONS - restart your spironolactone, discontinue [...] Appointments: Primary care provider: Cardiology: Deborah Hahn, POST SPLITTER [phone] Follow up as planned or as needed. Dr. Esparza [phone] Other follow-up appointment: Hematology - Dr. Mario [...] 4:15 PM EDT Office Visit Dermatology at [place] [address] [place] [address] Marek Bonilla MD [address] [place] [address] documented as of this encounter Procedures Procedure [...] Green Tube HOLD (06/03/2016 11:45 AM EDT) [facility] Green Hold Sample in lab. [facility] Blood specimen (specimen) Venous Draw / Unknown 06/03/2016 11:45 AM EDT 06/03/2016 12:12 PM EDT Maroi Alberto Escobedo MD CHEMISTRY ORDERABLES Performing Organization Address [facility] de Phone Number [facility] [place] [address] * Methylmalonic acid, serum (06/03/2016 11:45 AM EDT) [facility] Methylmalonic Acid (NOVEMBER) 0.21 <=0.40 nmol/mL [facility] Comment: Test Performed by: [place] [address] Sales Assistant Displays: Raymond Chaudhry II, M.D., Ph.D. Blood specimen (specimen) 06/03/2016 11:45 AM EDT 06/03/2016 1:57 PM EDT Narrative Resulting Agency Comment Spec In Lab Mario Alberto Escobedo MD LAB SEND OUT ORDERAB LES Performing Organization Address [facility] Co de Phone Number [facility] [place] [address] * Granulocyte Antibody (06/03/2016 11:45 AM EDT) [facility] Granulocyte Ab (NOVEMBER) Negative Not Applicable [facility] Comment: ADDITIONAL INFORMATION Method: Immunofluorescent Assay Performing Laboratory CLIA# [id number] This test was developed and its performance characteristics determined by [facility] in a manner consistent with CLIA requirements. This test has not been cleared or approved by the U.S. Food and Drug Administration. Test Performed by: [facility] - [address] [address] Sales Assistant Displays: Raymond Chaudhry II, M.D., Ph.D. Blood specimen (specimen) 06/03/2016 11:45 AM EDT 06/03/2016 1:57 PM EDT Narrative Resulting Agency Comment Spec In Lab Mario Alberto Escobedo MD LAB SEND OUT ORDERAB LES Performing Organization Address [facility] Co de Phone Number [facility] [place] [address] * TSH (06/03/2016 11:45 AM EDT) Thyroid Stimulating Hormone 2.18 0.27 - 4.20 mcIU/mL [facility] Blood specimen (specimen) 06/03/2016 11:45 AM EDT 06/03/2016 12:11 PM EDT Narrative Resulting Agency Comment Spec In Lab Mario Alberto Escobedo MD CHEMISTRY ORDERABLES Performing Organization Address [facility] Co de Phone Number [facility] [place] [place] [address] * Homocysteine Total, Plasma (06/03/2016 11:45 AM EDT) Homocystine 9 <=15 mcmol/L [facility] Blood specimen (specimen) 06/03/2016 11:45 AM EDT 06/03/2016 12:11 PM EDT Narrative Resulting Agency Comment Spec In Lab Mario Alberto Escobedo MD CHEMISTRY ORDERABLES Performing Organization Address [facility] Co de Phone Number [facility] [place] [address] * Folate, serum (06/03/2016 11:45 AM EDT) Folate >20.0 4.8 - 24.2 ng/mL [facility] Blood specimen (specimen) 06/03/2016 11:45 AM EDT 06/03/2016 12:04 PM EDT Narrative Resulting Agency Comment Spec In Lab Mario Alberto Escobedo MD CHEMISTRY ORDERABLES Performing Organization Address [facility] Co de Phone Number [facility] [place] [address] * (ABNORMAL) Sedimentation rate (06/03/2016 11:45 AM EDT) Sedimentation Rate Automated 41(H) 0 - 20 mm/hr [facility] Blood specimen (specimen) 06/03/2016 11:45 AM EDT 06/03/2016 12:04 PM EDT Narrative Resulting Agency Comment Spec In Lab Mario Alberto Escobedo MD HEMATOLOGY ORDERABLE S Performing Organization Address [facility] Co de Phone Number [facility] [place] [address] * Lactate Dehydrogenase (06/03/2016 11:45 AM EDT) Lactate Dehydrogenase 164 110 - 220 unit/L [facility] Blood specimen (specimen) 06/03/2016 11:45 AM EDT 06/03/2016 12:11 PM EDT Narrative Resulting Agency Comment Spec In Lab Mario Alberto Escobedo MD CHEMISTRY ORDERABLES Performing Organization Address [facility] Co de Phone Number [facility] [place] [address] * Comprehensive metabolic panel (non-fasting) (06/03/2016 11:45 AM EDT) Glucose 90 65 - 199 mg/dL [facility] Comment:Diabetes: >=200 mg/d L plus symptoms Blood Urea Nitrogen 11 8 - 18 mg/dL [facility] Creatinine 0.83 0.70 - 1.20 mg/dL [facility] Comment: Please note that the pediatric reference intervals supplied above were not validated at [facility]. Results from pediatric patients should be interpreted [...] the following links into your internet browser. [email or web address] Blood specimen (specimen) 06/03/2016:45 AM EDT 06/03/2016 12:11 PM EDT Narrative Resulting Agency Comment Spec In Lab Mario Alberto Escobedo MD CHEMISTRY ORDERABLES [facility] [place] [address] documented in this encounter Visit Diagnoses Diagnosis [...] Hernandez) documented in this encounter Care Teams Recruiting Administrator Relationship Specialty Start Date End Date Deborah Quiroga APRN PCP - General Family Medicine 03/24/16 02/04/23 documented as of this encounter
--- OUTSIDE RECORDS SUMMARY | 2024-04-11 14:22 | XMS_ITS | Encounter Summary ---
Author Organization [facility] Address [facility] [place] [address] Care Team Providers Care Mortuary Technician Name Role Phone Deborah Quiroga APRN Primary Care Provider [phone] Reason for Visit * Reason Comments Schedule Office Case * Consultation (Routine) - Closed Specialty Diagnoses / Procedures Referred By Contac t Referred To Contact Hematology and Oncology Diagnoses Leukopenia Neutropenia LEUKOPENIA W/NEUTROPENIA Procedures TC PEGFILGRASTIM, 6MG, INJECTION LEUKOPENIA W/NEUTROPENIA Alirio Esparza MD [facility] [place] [address] Mario Alberto Ramos Jr., MD [facility] [address] [place]AT[place] [address] Referral ID Status Reason Start Date Expiration Date V isits Requested Visits Authorized [id number] Closed Consult, Test & Treat 07/17/2016 07/17/2017 1 1 Encounter Details Date Type Department Care Team (Late st Contact Info) Description 06/09/2016 3:00 PM EST Office Visit [place] [address] Mario Alberto Ramos Jr., MD [facility] HEMATOLOGY [place] [address] Cyclical neutropenia Social History Tobacco Use Types [...] 06/09/2016 3:00 PM EST Hematology Outpatient Clinic [facility] Hematology Outpatient Consult Note CC: [id number] [...] Unknown See Comment Flow Cytometry Report Unknown [id number] ... HematoPathology: Flow Cytometry DIAGNOSIS 1. No [...] Notes * Addendum Note - Mario Alberto Raoms MD - 06/18/2016 3:09 PM ESTAddended by: MARIO ALBERTO RAMOS on: 06/18/2016 03:09 PM Modules accepted: Orders, SmartSet documented in this encounter Plan of Treatment Upcoming Encounters Date Type Department Care Team (Late st Contact Info) Description 03/01/2025 4:15 PM EDT Office Visit Dermatology at [place] [address] [place] [phone] Marek Bonilla MD [address], [place] [address] documented as of this encounter Procedures Procedure [...] (06/09/2016 4:53 PM EST) Flow Cytometry Report [id number] ?Location: The signing pathologist has (i) examined [...] high complexity clinical laboratory testing. SPECIMEN PROCESSING [id number] Cells for immunophenotypic analysis were derived from peripheral blood. ??CD45 vs side scatter gating was utilized to identify a lymphoid analysis region that comprises approximately 49-51% of all cells. The following markers were assessed: CD2, CD3, CD4, CD5, CD7, CD8, CD10, CD16, CD19, CD45, CD56, CD57, kappa light chain, and lambda light chain. CLINICAL INFORMATION 60 yo female with neutropenia. LGL panel requested. [facility] 06/09/2016 4:53 PM EST Mario Alberto Ramos Jr., MD PATHOLOGY/CYTOLOGY O RDERABLES [facility] [place] [address] * Scan, Peripheral Blood (06/09/2016 4:53 PM EST) Pathologist [facility] Plat estimate Normal [facility] RBC Morphology Normal [facility] Blood specimen (specimen) 06/09/2016 4:53 PM EST 06/09/2016 5:00 PM EST Narrative Resulting Agency Comment Spec In Lab Mario Alberto Ramos Jr., MD HEMATOLOGY ORDERABLE S Performing Organization Address City/[facility]/ZIP Co de Phone Number [facility] [place] [address] * (ABNORMAL) Differential, Automated (06/09/2016 4:53 PM EST) [facility] Neutrophil % 27.7 % [facility] Neutrophil Absolute 0.48(Crit ical) 1.70 - 6.10 x10(3)/mc L [facility] Comment: Matches Previous Results.. This result has been called to NOT CALLED by Jesusita Argueta on 06 09 2016 at 1817, and has not been read back. MATCHES PREVIOUS RESULTS Lymph % 57.2 % [facility] Lymphocytes Abs 1.0 0.9 - 3.2 x10(3)/mc L [facility] Monocyte % 13.3 % [facility] Monocyte Abs 0.2(L) 0.3 - 0.9 x10(3)/mc L [facility] Eos % 0.6 % [facility] Eosinophils Abs 0.0 0.0 - 0.4 x10(3)/mc L [facility] Basophil % 1.2 % [facility] Baso Absolute 0.0 0.0 - 0.1 x10(3)/mc L [facility] Immature Gran % 0.00 % [facility] Comment: Immature granulocytes(IG's)percentage and absolute count will include metamyelocytes, myelocytes, and promyelocytes. Blood smears from CBCs yielding IG's will be scanned manually for concordance. If this scan disagrees with the automated IG or if promyelocytes are noted, a manual differential will be performed. Immature Gran Absolute 0.00 0.00 - 0.04 x10(3)/mc L [facility] Blood specimen (specimen) 06/09/2016 4:53 PM EST 06/09/2016 5:00 PM EST Narrative Resulting Agency Comment Spec In Lab Mario Alberto Ramos Jr., MD HEMATOLOGY ORDERABLE S Performing Organization Address City/State/[facility] Co de Phone Number [facility] [place] [address] * (ABNORMAL) Hemogram (06/09/2016 4:53 PM EST) White Blood Cell 1.7(Criti gabrielle) 4.0 - 9.5 x10(3)/mc L [facility] Red Blood Cell 3.92(L) 4.00 - 5.21 x10(6)/mc L [facility] Hemoglobin 12.4 11.7 - 15.5 gm/dL [facility] Hematocrit 36.7 35.7 - 45.8 % [facility] Mean Cell Volume 93.6 82.6 - 94.4 fL [facility] Mean Cell Hemoglobin 31.6 27.1 - 32.0 pg [facility] Mean Cell Hemoglobin Concentration 33.8 31.7 - 35.0 gm/dL [facility] Platelet 234 145 - 357 x10(3)/mc L [facility] RDW Standard Deviation 39.8 37.0 - 46.0 fL [facility] RDW coefficient of variation 11.8 11.5 - 14.1 % [facility] Mean Platelet Volume 8.6 7.6 - 12.9 fL [facility] NRBC% auto 0.0 % [facility] NRBC Absolute 0.000 0.000 - 0.000 x10(3)/mc L [facility] Blood specimen (specimen) 06/09/2016 4:53 PM EST 06/09/2016 5:00 PM EST Narrative Resulting Agency Comment Spec In Lab Mario Alberto Ramos Jr., MD HEMATOLOGY ORDERABLE S Performing Organization Address [facility] Co de Phone Number [facility] [place] [address] * Immunophenotyping Flow Cytometry (06/09/2016 4:53 PM EST) Immunophenotyping Flow See Comment [facility] Comment: When completed by the Pathologist, the Flow Cytometry Report ([id number]) will display under the Pathology Results section within [facility]. Specimen of unknown material (specimen) 06/09/2016 4:53 PM EST 06/09/2016 5:00 PM EST Narrative Resulting Agency Comment Spec In Lab Mario Alberto Ramos Jr., MD HEMATOLOGY ORDERABLE S Performing Organization Address City/[facility] Co de Phone Number [facility] [place] [address] documented in this encounter Visit Diagnoses Diagnosis Cyclical neutropenia Cyclic neutropenia documented in this encounter Care Teams Mortuary Technician Relationship Specialty Start Date End Date Deborah Quiroga APRN PCP - General Family Medicine 03/24/16 02/04/23 documented as of this encounter
--- OUTSIDE RECORDS SUMMARY | 2024-04-11 14:22 | XMS_ITS | Encounter Summary ---
Author Organization [facility] Address [facility] [place] [address] Care Team Providers Care Therapist Name Role Phone JunaidAshley hargrovezac Shields APRN Primary Care Provider [phone] Reason for Visit * Consultation (Urgent) - Closed Specialty Diagnoses / Procedures Referred By Contac t Referred To Contact Cardiac Surgery Diagnoses aortic stenosis, consideration for valve replacement Antelmo Burrell MD [address] [place] [address] Alirio Esparza MD [address] [address] [place] [address] Referral ID Status Reason Start Date Expiration Date V isits Requested Visits Authorized [id number] Closed Connection Center 03/04/2016 03/04/2017 1 1 Encounter Details Date Type Department Care Team (Late st Contact Info) Description 03/24/2016 10:40 AM EDT Office [place] [phone] Alirio Esparza MD Aortic valve stenosis, unspecified [...] This is a patient of Antelmo Burrell [facility] Cardiology. Mrs. Thacker is being [...] 30 minute visit, 20 minutes were spent [id number] with the patient discussing aortic stenosis and valve replacement. documented in this encounter Plan of Treatment Upcoming Encounters Date Type Department Care Team (Late st Contact Info) Description 03/01/2025 4:15 PM EDT Office Visit Dermatology at [place] [address] [place] [address] Marek Bonilla MD [address] [place] [address] documented as of this encounter Visit Diagnoses Diagnosis Aortic valve stenosis, unspecified etiology documented in this encounter Care Teams Therapist Relationship Specialty Start Date End Date Deborah Quiroga APRN PCP - General Family Medicine 03/24/16 02/04/23 documented as of this encounter
--- OUTSIDE RECORDS SUMMARY | 2024-04-11 14:22 | XMS_ITS | Encounter Summary ---
Author Organization [facility] [place] [address] Care Team Providers Care Glass Finisher Name Role Phone Deborah Quiroga APRN Primary Care Provider [phone] Encounter Details Date Type Department Care Team (Late st Contact Info) Description 08/18/2016 4:20 PM EST Clinical [place] [phone] Social History Tobacco Use Types Packs/Day Years [...] 4:15 PM EDT Office Visit Dermatology at [place] [address] [place] [address] Marek Bonilla MD [address] [place] [address] documented as of this encounter Visit Diagnoses Not on filedocumented in this encounter Care Teams Glass Finisher Relationship Specialty Start Date End Date Deborah Quiroga APRN PCP - General Family Medicine 03/24/16 02/04/23 documented as of this encounter"
--- OUTSIDE RECORDS SUMMARY | 2024-04-11 14:22 | XMS_ITS | Encounter Summary ---
Author Organization [facility] Address [place] [address] Care Team Providers Care Solution Make Up Operator Name Role Phone Deborah Quiroga APRN Primary Care Provider [phone] Encounter Details Date Type Department Care Team (Late st Contact Info) Description 06/16/2016 Orders Only Hematology [place] [address] Nitesh Pina Jr., MD [address] HEMATOLOGY [place] [address] Cyclical neutropenia Social History Tobacco Use Types [...] 4:15 PM EDT Office Visit Dermatology at [place] [address] [place] [phone] Marek Bonilla MD [address] DERMATOLOGY [place], [place] [phone] documented as of this encounter Visit Diagnoses Diagnosis Cyclical neutropenia Cyclic neutropenia documented in this encounter Care Teams Solution Make Up Operator Relationship Specialty Start Date End Date Deborah Quiroga APRN PCP - General Family Medicine 03/24/16 02/04/23 documented as of this encounter
--- OUTSIDE RECORDS SUMMARY | 2024-04-11 14:22 | XMS_ITS | Encounter Summary ---
Author Organization [facility] Address [facility] [place] [address] Care Team Providers Care Industrial Health Engineer Name Role Phone Deborah Quiroga ANURAG Primary Care Provider [phone] Encounter Details Date Type Department Care Team (Late st Contact Info) Description 07/13/2016 External [place] [phone] Provider, Scanning Social History Tobacco Use Types [...] 4:15 PM EDT Office Visit Dermatology at [place] [address] [place] [phone] Marek Bonilla MD [address] [place] [address] documented as of this encounter Procedures Procedure Name Priority Date/Time Associated Diagnosis Comments SURGICAL PATHOLOGY SCAN Routine 07/13/2016 documented in this encounter Results * Scan Doc: Surgical Pathology (07/13/2016) Nitesh Pina Jr., MD MEDIA MGR SCAN EXT O RDR/RSLT documented in this encounter Visit Diagnoses Not on filedocumented in this encounter Care Teams Industrial Health Engineer Relationship Specialty Start Date End Date Deborah Quiroga APRN PCP - General Family Medicine 03/24/16 02/04/23 documented as of this encounter
--- OUTSIDE RECORDS SUMMARY | 2024-04-11 14:22 | XMS_ITS | Encounter Summary ---
Author Organization [facility] [place] [address] Care Team Providers Care Public Finance Specialist Name Role Phone Eitan Danni ANURAG Primary Care Provider Encounter Details Date Type Department Care Team (Late st Contact Info) Description 01/23/2014 9:25 AM EDT - 01/23/2014 10:25 AM [place] [address] Alan Jacobson MD [facility] [place] [address] CARDIAC CATHETERIZATION Social History Tobacco Use Types [...] by your doctor, do not take any zwnj-aly-adyongi medicines or herbal preparations without first discussing this with your doctor or pharmacist. There is the possibility of side effect and interactions when these are combined. Follow up Care Who to Call with Questions or Problems If there are any questions or problems that you think might be related to your cardiac cath or angioplasty, contact the soda tester television producer by calling [facility] [...] EDT Office Visit Dermatology at [place] [address] [place] [address] Marek Bonilla MD [address], [place] [address] documented as of this encounter Procedures Procedure Name Priority Date/Time Associated Diagnosis Comments ECHOCARDIOGRAM TRANSTHORACIC Routine 01/23/2014 3:17 PM EDT SOB (shortness of breath) documented in this encounter Results * Echocardiogram Transthoracic(Leb) (01/23/2014 3:17 PM EDT) Pathologist Brainient EF 50 HEARTPiqora SYSTEM Anatomical Region Laterality Modality Other 01/23/2014 Narrative 01/23/2014 4:35 PM EDT Procedure: ? Transthoracic Echocardiogram Patient: ? ANDREW ECHOLS M ?(Age): 1955(58) Med Rec#: ?[id number] ? Sex: ?F ? Site Loc: ?[facility] [place] ? Ht / Wt: ??158(cm)/93(kg) Pt. Loc: ? Adult Floor ?BSA: ?2.02 Study Date: ?01/23/2014 ? Pt. Type: Inpatient Tape: ? Referring: Lee Kincaid ([id number]) Referring: ANNALISA Booking Agent: Miguel Beverly Diagnosis:CPT Code(s): ??Echo Full (52553), ??Spectral Doppler (95645), Color Doppler (04734), Indication(s): ??Aortic stenosis Rhythm: Sinus HR ?BP [...] ? Mid-Inferior ?Hypokinetic ? Mid-Inferoseptal ?Hypokinetic ? [place]-Septal ? Hypokinetic ? [place]-Anterior ? Hypokinetic ? [place]-Lateral ?Hypokinetic ? [place]-Inferior ? Hypokinetic ? [place]-Tip ?Hypokinetic ? Chambers ?Value ?Units (Range) ? [...] Patient: ANDREW Mejias (Age): 1955(58) Med Rec#: [id number] Sex: F Site Loc: [facility] [place] Ht / Wt: 158(cm)/93(kg) Pt. Loc: Adult Floor BSA: 2.02 Study Date: 01/23/2014 Pt. Type: Inpatient Tape: Referring: Lee Kincaid ([id number]) Referring: [facility] Booking Agent: Miguel Beverly Diagnosis:CPT Code(s): Echo Full (94623), Spectral Doppler (56044), Color Doppler (51218), Indication(s): Aortic stenosis Rhythm: Sinus HR BP [...] Hypokinetic Mid-Posterolateral Hypokinetic Mid-Inferior Hypokinetic Mid-Inferoseptal Hypokinetic [place]-Septal Hypokinetic [place]-Anterior Hypokinetic [place]-Lateral Hypokinetic [place]-Inferior Hypokinetic [place]-Tip Hypokinetic Chambers Value Units (Range) IVSd 2D [...] RN) documented in this encounter Care Teams Public Finance Specialist Relationship Specialty Start Date End Date Danni Laird APRN [address] [place] [address] PCP - General 01/23/14 11/11/14 documented as of this encounter
--- OUTSIDE RECORDS SUMMARY | 2024-04-11 14:22 | XMS_ITS | Encounter Summary ---
Author Organization [facility]ly [facility] Address [facility] [place] [address] Care Team Providers Care Reliability Specialist Name Role Phone Danni Laird APRN Primary Care Provider [phone] Encounter Details Date Type Department Care Team (Late st Contact Info) Description 01/23/2014 Orders Only Cardiology at [address] [address] Lee Kincaid MD [facility] [place] [address] SOB (shortness of breath) (Primary Dx) Social [...] 4:15 PM EDT Office Visit Dermatology at [place] [address] [place] [address] Marek Bonilla MD [address], [place] A DERMATOLOGY [place], [place] [address] documented as of this encounter Results * Echocardiogram Transthoracic(Leb) (01/23/2014 3:17 PM EDT) EF 50 HEARTLAB SYSTEM Anatomical Region Laterality Modality Other 01/23/2014 Narrative 01/23/2014 4:35 PM EDT Procedure: ? Transthoracic Echocardiogram Patient: ? ANDREW Mejias ?(Age): 1955(58) Med Rec#: ?[id number] ? Sex: ?F ? Site Loc: ?[facility] ? Ht / Wt: ??158(cm)/93(kg) Pt. Loc: ? Adult Floor ?BSA: ?2.02 Study Date: ?01/23/2014 ? Pt. Type: Inpatient Tape: ? Referring: Lee Kincaid ([id number]) Referring: ANNALISA Gas Appliance Adjuster: Miguel Beverly Diagnosis:CPT Code(s): ??Echo Full (45860), ??Spectral Doppler (57707), Color Doppler (84832), Indication(s): ??Aortic stenosis Rhythm: Sinus HR ?BP [...] ? Mid-Inferior ?Hypokinetic ? Mid-Inferoseptal ?Hypokinetic ? [place]-Septal ? Hypokinetic ? [place]-Anterior ? Hypokinetic ? [place]-Lateral ?Hypokinetic ? [place]-Inferior ? Hypokinetic ? [place]-Tip ?Hypokinetic ? Chambers ?Value ?Units (Range) ? [...] Patient: ANDREW Mejias (Age): 1955(58) Med Rec#: [id number] Sex: F Site Loc: [facility] Ht / Wt: 158(cm)/93(kg) Pt. Loc: Adult Floor BSA: 2.02 Study Date: 01/23/2014 Pt. Type: Inpatient Tape: Referring: Lee Kincaid ([id number]) Referring: ANNALISA Gas Appliance Adjuster: Miguel Beverly Diagnosis:CPT Code(s): Echo Full (11708), Spectral Doppler (61860), Color Doppler (75577), Indication(s): Aortic stenosis Rhythm: Sinus HR BP [...] Hypokinetic Mid-Posterolateral Hypokinetic Mid-Inferior Hypokinetic Mid-Inferoseptal Hypokinetic [place]-Septal Hypokinetic [place]-Anterior Hypokinetic [place]-Lateral Hypokinetic [place]-Inferior Hypokinetic [place]-Tip Hypokinetic Chambers Value Units (Range) IVSd 2D [...] breath documented in this encounter Care Teams Reliability Specialist Relationship Specialty Start Date End Date Danni Laird APRN [address] [place] [address] PCP - General 01/23/14 11/11/14 documented as of this encounter
--- OUTSIDE RECORDS SUMMARY | 2024-04-11 14:22 | XMS_ITS | Encounter Summary ---
[place] [address] Care Team Providers Care Reference Archivist Name Role Phone Deborah Quiroga ANURAG Primary Care Provider [phone] Encounter Details Date Type Department Care Team (Late st Contact Info) Description 07/22/2016 External Results [place]ology [place] [address] Alexandrea Greenwood RN Neutropenia, unspecified type Social [...] 4:15 PM EDT Office Visit Dermatology at [place] [address] [place] [address] Marek Bonilla MD [address], [place] [address] documented as of this encounter Procedures Procedure Name Priority Date/Time Associated Diagnosis Comments COPPER, SERUM Routine 07/20/2016 10:30 AM EST Neutropenia, unspecified type CMV PCR, QUANTITATIVE Routine 07/20/2016 10:30 AM EST Neutropenia, unspecified type MONONUCLEOSIS SCREEN ([facility]) Routine 07/20/2016 10:30 AM EST Neutropenia, unspecified type CBC (WITH DIFF) Routine 07/20/2016 10:30 AM EST Neutropenia, unspecified type documented in this encounter Results * Copper, serum (07/20/2016 10:30 AM EST) Copper (NOVEMBER) 1.09 0.75 - 1.45 EXTERNAL LAB Blood specimen (specimen) 07/20/2016 10:30 AM EST Markel Borjas MD LAB SEND OUT ORDER JODIE Performing Organization Address [facility] Co de Phone Number EXTERNAL LAB * CMV PCR, Quantitative (07/20/2016 10:30 AM EST) CMV PCR,Quantitati ve undetected EXTERNAL LAB Blood specimen (specimen) 07/20/2016 10:30 AM EST Markel Borjas MD MOLECULAR ORDERABL ES Performing Organization Address [facility] Co de Phone Number EXTERNAL LAB * Mononucleosis Screen (07/20/2016 10:30 AM EST) Mononucleosis Screen neg neg - neg EXTERNAL LAB Blood specimen (specimen) 07/20/2016 10:30 AM EST Markel Borjas MD IMMUNOLOGY ORDERAB LES Performing Organization Address [facility] Co de Phone [...] type documented in this encounter Care Teams Reference Archivist Relationship Specialty Start Date End Date Deborah Quiroga, OLIVE BRINE TESTER PCP - General Family Medicine 03/24/16 02/04/23 documented as of this encounter
--- OUTSIDE RECORDS SUMMARY | 2024-04-11 14:22 | XMS_ITS | Encounter Summary ---
Author Organization [facility] [place] [address] Care Team Providers Care Conductor/Brakeman Name Role Phone EitanDanni ANURAG Primary Care Provider [phone] Encounter Details Date Type Department Care Team (Late st Contact Info) Description 01/22/2014 Telephone Cardiology at [address] [phone] Cynthia Arrington LPN Social History Tobacco Use [...] LPN - 01/23/2014 2:39 PM EDT This communications writer did not receive a call back [...] 4:15 PM EDT Office Visit Dermatology at [place] [address] [place] [address] Marek Bonilla MD [address] [place] [address] documented as of this encounter Visit Diagnoses Not on filedocumented in this encounter Care Teams Conductor/Brakeman Relationship Specialty Start Date End Date Danni Laird APRN [address] [place] [address] PCP - General 01/23/14 11/11/14 documented as of this encounter
--- OUTSIDE RECORDS SUMMARY | 2024-04-11 14:22 | XMS_ITS | Encounter Summary ---
[place] [address] Care Team Providers Care Inventory Controller Name Role Phone Deborah Quiroga ANURAG Primary Care Provider [phone] Reason for Visit * Reason Onset Date Comments Medical Care Coordination 07/17/2016 Encounter Details Date Type Department Care Team ([facility] Contact Info) Description 07/17/2016 Telephone [place] [phone] Alexandrea Greenwood RN Medical Care Coordination Social [...] 12:07 PM EST Message received from legal secretary: Injection/Infusion Referral Call placed to [phone]). Spoke w/ Pasquale. Services to be provided for pt are: Labs @ 10am ([facility]) & Neulasta @ 11am on 07/20/16, CBC only on 07/30/16 Pasquale confirmed they would provide services to pt and [place] [facility] [place] to call for appt info. Pt demographics, office note, med list and orders faxed to [facility] & [facility] documented in this encounter Plan of Treatment Upcoming Encounters Date Type Department Care Team (Late st Contact Info) Description 03/01/2025 4:15 PM EDT Office Visit Dermatology at [place] [address] [place] [address] Marek Bonilla MD [address], [address] [place] [address] documented as of this encounter Visit Diagnoses Not on filedocumented in this encounter Care Teams Inventory Controller Relationship Specialty Start Date End Date Deborah Quiroga APRN PCP - General Family Medicine 03/24/16 02/04/23 documented as of this encounter
--- OUTSIDE RECORDS SUMMARY | 2024-04-11 14:22 | XMS_ITS | Encounter Summary ---
Author Organization [facility] [place] [address] Care Team Providers Care Press Pipe Inspector Name Role Phone Deborah Quiroga APRN Primary Care Provider [phone] Encounter Details Date Type Department Care Team (Late st Contact Info) Description 07/31/2016 External Results Hematology [place] [address] Alexandrea Greenwood RN Neutropenia, unspecified type Social [...] 4:15 PM EDT Office Visit Dermatology at [place] [address] [place] [address] Marek Bonilla MD [address], [place] [address] documented as of this encounter Procedures Procedure [...] type documented in this encounter Care Teams Press Pipe Inspector Relationship Specialty Start Date End Date Deborah Quiroga, BELT KNIFE FEEDER PCP - General Family Medicine 03/24/16 02/04/23 documented as of this encounter
--- OUTSIDE RECORDS SUMMARY | 2024-04-11 14:22 | XMS_ITS | Encounter Summary ---
Author Organization [facility] [place] [address] Care Team Providers Care Duplex Trimmer Name Role Phone Deborah Quiroga APRN Primary Care Provider [phone] Encounter Details Date Type Department Care Team (Late st Contact Info) Description 06/09/2016 Orders Only Hematology [place] [address] Nitesh Pina Jr., MD [address] [place] [address] Cyclical neutropenia Social History Tobacco Use Types [...] 4:15 PM EDT Office Visit Dermatology at [place] [address] [place] [address] Marek Bonilla MD [address] [place] [address] documented as of this encounter Results * Immunophenotyping Flow Cytometry (06/09/2016 4:53 PM EST) Immunophenotyping Flow See Comment [facility] Comment: When completed by the Pathologist, the Flow Cytometry Report ([id number]) will display under the Pathology Results section within [facility]. Specimen of unknown material (specimen) 06/09/2016 4:53 PM EST 06/09/2016 5:00 PM EST Narrative Resulting Agency Comment Spec In Lab Nitesh Pina Jr., MD HEMATOLOGY ORDERABLE S Performing Organization Address City/State/[facility] Co de Phone Number [facility] [place] [address] documented in this encounter Visit Diagnoses Diagnosis Cyclical neutropenia Cyclic neutropenia documented in this encounter Care Teams Duplex Trimmer Relationship Specialty Start Date End Date Deborah Quiroga, CHARGE HAND PCP - General Family Medicine 03/24/16 02/04/23 documented as of this encounter
--- OUTSIDE RECORDS SUMMARY | 2024-04-11 14:22 | XMS_ITS | Encounter Summary ---
Author Organization [facility] Address [facility] [place] [address] Care Team Providers Care Director Search Name Role Phone Ashley Quirogan Cornelius ANURAG Primary Care Provider [phone] Encounter Details Date Type Department Care Team (Late st Contact Info) Description 08/11/2016 Telephone Hematology [place] [phone] Markel Borjas MD [facility] [address] [place] [address] Social History Tobacco Use Types Packs/Day Years [...] Office Visit Dermatology at [place] [address] [place] [address] Marek Bonilla MD [address], [place] [address] documented as of this encounter Visit Diagnoses Not on filedocumented in this encounter Care Teams Director Search Relationship Specialty Start Date End Date Deborah Quiroga APRN PCP - General Family Medicine 03/24/16 02/04/23 documented as of this encounter
--- OUTSIDE RECORDS SUMMARY | 2024-04-11 14:22 | XMS_ITS | Encounter Summary ---
[place] [address] Care Team Providers Care Converter Supervisor Name Role Phone Deborah Quiroga ANURAG Primary Care Provider [phone] Reason for Visit * Reason Onset Date Comments Medical Care Coordination 07/31/2016 Encounter Details Date Type Department Care Team (Late st Contact Info) Description 07/31/2016 Telephone Hematology [place] [address] Alexandrea Greenwood RN Medical Care Coordination Social [...] 08/04/15 RN spoke with Aydee of the [facility] lab who states they can draw pt's cbc on 08/04/15, RN faxed lab req to [phone] at Aydee's request. RN instructed pt on Dr. Borjas's direction above. Pt verbalized understanding. documented in this encounter Plan of Treatment Upcoming Encounters Date Type Department Care Team (Late st Contact Info) Description 03/01/2025 4:15 PM EDT Office Visit Dermatology at [place] [address] [place] [address] Marek Bonilla MD [address] [place] [address] documented as of this encounter Visit Diagnoses Not on filedocumented in this encounter Care Teams Converter Supervisor Relationship Specialty Start Date End Date Deborah Quiroga APRN PCP - General Family Medicine 03/24/16 02/04/23 documented as of this encounter
--- OUTSIDE RECORDS SUMMARY | 2024-04-11 14:22 | XMS_ITS | Encounter Summary ---
Author Organization [facility] Address [facility] [place] [address] Care Team Providers Care Rag Cutting Machine Tender Name Role Phone Ashley Quirogazac Shields APRN Primary Care Provider [phone] Encounter Details Date Type Department Care Team (Latest Contact Info) Description 06/19/2016 - 06/19/2016 11:59 PM EST Hospital Encounter [place] [address] Nitesh Pina Jr., MD [facility] [address] HEMATOLOGY [place] [address] Pain Discharge Disposition: Home Social History Tobacco [...] 4:15 PM EDT Office Visit Dermatology at [place] [address] [place] [address] Marek Bonilla MD [address], [place] [address] documented as of this encounter Procedures Procedure Name Priority Date/Time Associated Diagnosis Comments FILM LIBRARY STORAGE ONLY CT CHEST ABDOMEN PELVIS Routine 06/19/2016 12:00 AM EST Pain documented in this encounter Results * Film Library- Storage Only CT Chest Abdomen Pelvis (06/19/2016 12:00 AM EST) Narrative [facility] - 06/20/2016 8:53 AM EST This exam is for storage only and is auto-finalizing. Nitesh Pina Jr., MD IMG FILM LIBRARY ORD ERABLES [place], [place] documented in this encounter Visit Diagnoses Diagnosis Pain Generalized pain documented in this encounter Care Teams Rag Cutting Machine Tender Relationship Specialty Start Date End Date Deborah Quiroga APRN PCP - General Family Medicine 03/24/16 02/04/23 documented as of this encounter
--- OUTSIDE RECORDS SUMMARY | 2024-04-11 14:22 | XMS_ITS | Encounter Summary ---
Author Organization [facility] Address [facility] [place] [address] Care Team Providers Care Account Services Representative Name Role Phone Deborah Quiroga APRN Primary Care Provider Encounter Details Date Type Department Care Team (Late st Contact Info) Description 07/17/2016 9:00 AM EST Office Visit Hematology [place] [address] Markel Borjas MD [facility] [address] [place] [address] Neutropenia, unspecified type Social History Tobacco Use [...] 07/17/2016 9:00 AM EST Hematology Outpatient Clinic [facility] Hematology Outpatient Consult [...] TOUCH PREP, CLOT SECTION, CORE ??BIOPSY); [OSR# [id number], COLLECTED 06/23/2016, 19 SLIDES]: ?1. 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 Labs will be drawn at [facility] next week Imaging As above - [...] leukopenia. Will consi kanwal talking to pt's associate professor of library media about a switch from ACEI to ARB [...] the original note were not included. N [facility] [place] [place] [address] Date: 07/17/16 Patient Name: Purnima Thacker : 1955 Diagnosis: neutropenia Referral to [site]: [facility] Orders: ? Labs: Fax results to . [x] Draw CBC, copper level, CMV PCR, mononucleosis screen on 07/20 Repeat CBC on 07/30 (to measure response of WBC after Neulasta) ? Growth factor: [x] Neulasta 6mg SQ injection x 1 on 07/20/2016 Signature: Markel Borjas MD beeper # [id number] documented in this encounter Plan of Treatment Upcoming Encounters Date Type Department Care Team (Late st Contact Info) Description 03/01/2025 4:15 PM EDT Office Visit Dermatology at [place] [address] [place] [address] Marek Bonilla MD [address], [place] [address] documented as of this encounter [...] LES Performing Organization Address [facility] Co de Phone Number EXTERNAL LAB * Mononucleosis Screen (07/20/2016 10:30 AM EST) Mononucleosis Screen neg neg - neg EXTERNAL LAB Blood specimen (specimen) 07/20/2016 10:30 AM EST Markel Borjas MD IMMUNOLOGY ORDERAB LES Performing Organization Address [facility] de Phone Number EXTERNAL LAB * Copper, serum (07/20/2016 10:30 AM EST) Pathologist [facility] Copper (NOVEMBER) 1.09 0.75 - 1.45 EXTERNAL LAB Blood specimen (specimen) 07/20/2016 10:30 AM EST Markel Borjas MD LAB SEND OUT ORDER JODIE Performing Organization Address [facility] de Phone Number EXTERNAL LAB * CMV PCR, Quantitative (07/20/2016 10:30 AM EST) Pathologist [facility] CMV PCR,Quantitati ve undetected EXTERNAL LAB Blood specimen (specimen) 07/20/2016 10:30 AM EST Markel Borjas MD MOLECULAR ORDERABL ES Performing Organization Address [facility] Co de Phone Number EXTERNAL LAB * (ABNORMAL) CBC (with Diff) (07/20/2016 10:30 AM EST) Pathologist [facility] White Blood Cell 1.61(A) 4.4 - 10.8 EXTERNAL LAB Hemoglobin 12.3 12.0 - 16.0 EXTERNAL LAB Hematocrit 37.2 36.0 - 46.0 EXTERNAL LAB Platelet 229 130 - 400 EXTERNAL LAB Blood specimen (specimen) 07/20/2016 10:30 AM EST Markel Borjas MD HEMATOLOGY ORDERAB LES EXTERNAL LAB documented in this encounter Visit Diagnoses Diagnosis Neutropenia, unspecified type documented in this encounter Care Teams Account Services Representative Relationship Specialty Start Date End Date Deborah Quiroga, SLAT BASKET TOP MAKER PCP - General Family Medicine 03/24/16 02/04/23 documented as of this encounter
--- OUTSIDE RECORDS SUMMARY | 2024-04-11 14:22 | XMS_ITS | Encounter Summary ---
[place] [address] Care Team Providers Care Osteology Teacher Name Role Phone Deborah Quiroga APRN Primary Care Provider [phone] Encounter Details Date Type Department Care Team (Late st Contact Info) Description 08/04/2016 External Results Hematology [place] [address] Alexandrea Greenwood RN Neutropenia, unspecified type Social [...] 4:15 PM EDT Office Visit Dermatology at [place] [address] [place] [address] Marek Bonilla MD [address] [place] [address] documented as of this encounter Procedures Procedure [...] type documented in this encounter Care Teams Osteology Teacher Relationship Specialty Start Date End Date Deborah Quiroga, CRANK HAND PCP - General Family Medicine 03/24/16 02/04/23 documented as of this encounter
--- OUTSIDE RECORDS SUMMARY | 2024-04-11 14:22 | XMS_ITS | Encounter Summary ---
Author Organization [facility] Address [facility] [place] [address] Care Team Providers Care Juvenile Justice Specialist Name Role Phone Junaid Deborah Shields APRN Primary Care Provider [phone] Encounter Details Date Type Department Care Team (Latest Contact Info) Description 05/19/2016 11:00 AM EDT Clinical [place] [address] Nonrheumatic aortic valve stenosis Social History Tobacco [...] 4:15 PM EDT Office Visit Dermatology at [place] [address] [place] [address] Marek Bonilla MD [address], [place] [address] documented as of this encounter Procedures Procedure [...] (Bezet) 448 ms MUSE SYSTEM Calculated P [place] 37 degrees MUSE SYSTEM Calculated R [place] 31 degrees MUSE SYSTEM Calculated T [place] 25 degrees MUSE SYSTEM INTERPRETATION Normal sinus rhythm Normal ECG No previous ECGs available Confirmed by MD Becca, Deangelo ([id number]) on 05/19/2016 5:23:33 PM MUSE SYSTEM 05/19/2016 11:4 3 AM EDT 05/19/2016 5:23 PM EDT Alirio Esparza MD ECG ORDERABLES MUSE SYSTEM documented in this encounter Visit Diagnoses Diagnosis Nonrheumatic aortic valve stenosis Aortic valve disorders documented in this encounter Care Teams Juvenile Justice Specialist Relationship Specialty Start Date End Date Deborah Quiroga APRN PCP - General Family Medicine 03/24/16 02/04/23 documented as of this encounter
--- OUTSIDE RECORDS SUMMARY | 2024-04-11 14:22 | XMS_ITS | Encounter Summary ---
Author Organization [facility] [place] [address] Care Team Providers Care Freight Weigher Name Role Phone Junaid, Deborah Shields APRN Primary Care Provider [phone] Encounter Details Date Type Department Care Team (Late st Contact Info) Description 05/19/2016 10:00 AM EDT Office [place] [phone] Alirio Esparza MD Nonrheumatic aortic valve stenosis [...] EDT Office Visit Dermatology at [place] [address] [facility] [address] [place] [address] Marek Bonilla MD [address], [place] [address] documented as of this encounter Results * [...] (Bezet) 448 ms MUSE SYSTEM Calculated P [place] 37 degrees MUSE SYSTEM Calculated R [place] 31 degrees MUSE SYSTEM Calculated T [place] 25 degrees MUSE SYSTEM INTERPRETATION Normal sinus [...] the following links into your internet browser. [email or web address] Blood specimen (specimen) 05/19/2016 11:32 AM EDT 05/19/2016 11:41 AM EDT Narrative Resulting Agency Comment Spec In Lab Alirio Esparza MD CHEMISTRY ORDERABLE S Performing Organization Address City/State/[facility] Co de Phone Number [facility] [place] [address] documented in this encounter Visit Diagnoses Diagnosis Nonrheumatic aortic valve stenosis Aortic valve disorders Nonrheumatic aortic valve stenosis Aortic valve disorders documented in this encounter Care Teams Freight Weigher Relationship Specialty Start Date End Date Deborah Quiroga APRN PCP - General Family Medicine 03/24/16 02/04/23 documented as of this encounter
--- OUTSIDE RECORDS SUMMARY | 2024-04-11 14:22 | XMS_ITS | Encounter Summary ---
Author Organization [facility] [place] [address] Care Team Providers Care Head Of Operation And Logistics Name Role Phone Junaid Deborah Shields APRN Primary Care Provider [phone] Encounter Details Date Type Department Care Team (Latest Contact Info) Description 08/18/2016 4:40 PM EST [place] [phone] Aortic valve stenosis, unspecified etiology Social History [...] 4:15 PM EDT Office Visit Dermatology at [place] [address] [place] [address] Marek Bonilla MD [address], [place] [address] documented as of this encounter Procedures Procedure Name Priority Date/Time Associated Diagnosis Comments ABORH RECHECK STATUS Routine 08/18/2016 4:50 PM EST TYPE AND SCREEN, SDP (FUTURE SURGERY, [facility] SAME [place] [facility]GRAM ONLY) Routine [...] Esparza MD BLOOD BANK LAB BETH SHANNONROMERO [facility] [place] [address] * Antibody screen (08/18/2016 4:50 PM EST) [...] Esparza MD BLOOD BANK LAB ORDSylvia ORTEGAROMERO [facility] [place] [address] * ABO/Rh Typing (08/18/2016 4:50 PM EST) ABORH Type B Pos [facility] Blood specimen (specimen) 08/18/2016 4:50 PM EST 08/18/2016 5:11 PM EST Narrative Resulting Agency Comment Spec In Lab Alirio Esparza MD BLOOD BANK LAB BETH ALEJO Lidia Organization Address City/State/ZIP Co de Phone Number [facility] [place] [address] * Basic Metabolic Panel (non-fasting) (08/18/2016 4:50 PM EST) Glucose 82 65 - 199 mg/dL [facility] Comment:Diabetes: >=200 mg/d L plus symptoms Blood Urea Nitrogen 12 8 - 18 mg/dL [facility] Creatinine 0.87 0.70 - 1.20 mg/dL [facility] Comment: Please note that the pediatric reference intervals supplied above were not validated at [facility]. Results from pediatric patients should [...] [facility] Carbon Dioxide 26 22 - 31 mmol/L [facility] Anion Gap 14 5 - 15 mmol/L [facility] Calcium 9.7 8.5 - 10.5 mg/dL [facility] Est Glomerular Filtration Rate >60 >=60 [facility] Comment: This estimated GFR [...] the following links into your internet browser. [email or web address] Blood specimen (specimen) 08/18/2016 4:50 PM EST 08/18/2016 5:03 PM EST Narrative Resulting Agency Comment Spec In Lab Alirio Esparza MD CHEMISTRY ORDERABLE S Performing Organization Address City/State/[place] Co de Phone Number [facility] [place] [address] documented in this encounter Visit Diagnoses Diagnosis Aortic valve stenosis, unspecified etiology documented in this encounter Care Teams Head Of Operation And Logistics Relationship Specialty Start Date End Date Deborah Quiroga, POWER HOUSE CONTROL ROOM OPERATOR PCP - General Family Medicine 03/24/16 02/04/23 documented as of this encounter
--- OUTSIDE RECORDS SUMMARY | 2024-04-11 14:22 | XMS_ITS | Encounter Summary ---
Author Organization [facility] Address [facility] [place] [address] Care Team Providers Care Veneer Gluer Name Role Phone EitanMagnusDanni ANURAG Primary Care Provider [phone] Encounter Details Date Type Department Care Team (Latest Contact Info) Description 01/23/2014 7:45 AM EDT - 01/23/2014 5:50 PM EDT Hospital Encounter [place] [address] Alan Jacobson MD [facility] [place] [address] Cardiomyopathy; SOB (shortness of breath) Discharge Disposition: [...] by your doctor, do not take any wesl-wgi-tvkfufm medicines or herbal preparations without first discussing this with your doctor or pharmacist. There is the possibility of side effect and interactions when these are combined. Follow up Care Who to Call with Questions or Problems If there are any questions or problems that you think might be related to your cardiac cath or angioplasty, contact the deck steward airline lounge receptionist by calling [facility] [...] 4:15 PM EDT Office Visit Dermatology at [place] [address] [place] [address] Marek Bonilla MD [address], [place] [address] documented as of this encounter Procedures Procedure [...] ANDREW ECHOLS M ?(Age): 1955(58) Med Rec#: ?[id number] ? Sex: ?F ? Site Loc: ?[facility] ? Ht / Wt: ??158(cm)/93(kg) Pt. Loc: ? Adult Floor ?BSA: ?2.02 Study Date: ?01/23/2014 ? Pt. Type: Inpatient Tape: ? Referring: Lee Kincaid ([id number]) Referring: ANNALISA Home Housekeeper: Miguel Beverly Diagnosis:CPT Code(s): ??Echo Full (25674), ??Spectral Doppler (81885), Color Doppler (30208), Indication(s): ??Aortic stenosis Rhythm: Sinus HR ?BP [...] ? Mid-Inferior ?Hypokinetic ? Mid-Inferoseptal ?Hypokinetic ? Wolverine-Septal ? Hypokinetic ? Wolverine-Anterior ? Hypokinetic ? Wolverine-Lateral ?Hypokinetic ? Wolverine-Inferior ? Hypokinetic ? Wolverine-Tip ?Hypokinetic ? Chambers ?Value ?Units (Range) ? [...] Patient: ANDREW Mejias (Age): 1955(58) Med Rec#: [id number] Sex: F Site Loc: [facility] Ht / Wt: 158(cm)/93(kg) Pt. Loc: Adult Floor BSA: 2.02 Study Date: 01/23/2014 Pt. Type: Inpatient Tape: Referring: Lee Kincaid ([id number]) Referring: ANNALISA Home Housekeeper: Miguel Beverly Diagnosis:CPT Code(s): Echo Full (48200), Spectral Doppler (30851), Color Doppler (83498), Indication(s): Aortic stenosis Rhythm: Sinus HR BP [...] Hypokinetic Mid-Posterolateral Hypokinetic Mid-Inferior Hypokinetic Mid-Inferoseptal Hypokinetic Wolverine-Septal Hypokinetic Wolverine-Anterior Hypokinetic Wolverine-Lateral Hypokinetic Wolverine-Inferior Hypokinetic Wolverine-Tip Hypokinetic Chambers Value Units (Range) IVSd 2D [...] RN) documented in this encounter Care Teams Veneer Gluer Relationship Specialty Start Date End Date Danni Laird APRN [address] [place] [address] PCP - General 01/23/14 11/11/14 documented as of this encounter
--- OUTSIDE RECORDS SUMMARY | 2024-04-11 14:22 | XMS_ITS | Encounter Summary ---
[place] [address] Care Team Providers Care Brand Planner Name Role Phone Ashley Quirogan Cornelius ANURAG Primary Care Provider [phone] Encounter Details Date Type Department Care Team (Late st Contact Info) Description 03/24/2016 Notes [place] [phone] Alfa Lua Social History Tobacco Use Types [...] assessments completed: Wadsworth Score: 6/6 IADL: 7/7 Industrial Relations Analyst Strength Trials: 18.4, 15.0, 16.8 (right hand dominant) 5 meter walk test in seconds x3: 4.98, 4.88, 4.45 KCCQol: 98% Alfa Lua documented in this encounter Plan of Treatment Upcoming Encounters Date Type Department Care Team (Late st Contact Info) Description 03/01/2025 4:15 PM EDT Office Visit Dermatology at [place] [address] [facility] [place] [address] Marek Bonilla MD [address] [place] [address] documented as of this encounter Visit Diagnoses Not on filedocumented in this encounter Care Teams Brand Planner Relationship Specialty Start Date End Date Deborah Quiroga APRN PCP - General Family Medicine 03/24/16 02/04/23 documented as of this encounter
--- OUTSIDE RECORDS SUMMARY | 2024-04-11 14:22 | XMS_ITS | Encounter Summary ---
Author Organization [facility] Address [facility] [place] [address] Care Team Providers Care Saxophone Player Name Role Phone JunaidAshley hargrovezac Shields APRN Primary Care Provider [phone] Reason for Visit * Auth/Cert Specialty Diagnoses / Procedures Referred By Crispin t Referred To Contact Diagnoses AVS Procedures CARDIAC CATHETERIZATION Referral ID Status Reason Start Date Expiration Date Visits Re quested Visits Authorized [id number] 1 1 Encounter Details Date Type Department Care Team (Late st Contact Info) Description 06/03/2016 6:32 AM EDT - 06/03/2016 1:10 PM EDT Hospital Encounter [place] [phone] Anjum Oliveros II, MD [facility] [address] Mario Alberto Escobedo MD [facility] [place] [address] Aortic valve stenosis, unspecified etiology; Nonrheumatic aortic [...] by your doctor, do not take any gfse-dyn-zrnflel medicinesor herbal preparations without first discussing this with your doctor or pharmacist. There is the possibility of side effects and interactions when these are combined. Follow Up Care Who to call with questions or problems If there are any questions or problems that you think might be related to your cardiac cath or angioplasty, contact the credit control administrator counterperson by calling [facility] at . * Patient Instructions* Felicia Corrigan - 06/03/2016 9:33 AM EDT Cardiology Instructions Call your doctor if: Chest pain, dyspnea, pain or swelling in legs occurs. If you have non-emergent questions between now and the time of your follow up appointments: -During 8am-5pm Wednesday through Wednesday call [phone] to speak with a nurse in the cardiology clinic -All other times call [phone] and ask to speak to the sheet writer counterperson. MEDICATIONS - restart your spironolactone, discontinue prior [...] Primary care provider: Cardiology: Deborah Hahn, BARREL LOADER AND CLEANER [phone] Follow up as planned or as needed. Dr. Esparza [phone] Other follow-up appointment: Hematology - Dr. Mario [...] EDT Office Visit Dermatology at [place] [address] [place] [address] Marek Bonilla MD [address] Katherine DERMATOLOGY [place], [place] [phone] documented as of this encounter Procedures Procedure [...] Green Tube HOLD (06/03/2016 11:45 AM EDT) [facility] Green Hold Sample in lab. [facility] Blood specimen (specimen) Venous Draw / Unknown 06/03/2016 11:45 AM EDT 06/03/2016 12:12 PM EDT Mario Alberto Escobedo MD CHEMISTRY ORDERABLES Performing Organization Address [facility] Co de Phone Number [facility] [place] [address] * Methylmalonic acid, serum (06/03/2016 11:45 AM EDT) [facility] Methylmalonic Acid (NOVEMBER) 0.21 <=0.40 nmol/mL [facility] Comment: Test Performed by: [place] [address] [employer] Finisher: Raymond Chaudhry II, M.D., Ph.D. Blood specimen (specimen) 06/03/2016 11:45 AM EDT 06/03/2016 1:57 PM EDT Narrative Resulting Agency Comment Spec In Lab Mario Alberto Escobedo MD LAB SEND OUT ORDERAB LES Performing Organization Address [facility] Co de Phone Number [facility] [place] [address] * Granulocyte Antibody (06/03/2016 11:45 AM EDT) [facility] Granulocyte Ab (NOVEMBER) Negative Not Applicable [facility] Comment: ADDITIONAL INFORMATION Method: Immunofluorescent Assay Performing Laboratory CLIA# [id number] This test was developed and its performance characteristics determined by [facility] in a manner consistent with CLIA requirements. This test has not been cleared or approved by the U.S. Food and Drug Administration. Test Performed by: [facility] - [address] [address] [employer] Finisher: Raymond Chaudhry II, M.D., Ph.D. Blood specimen (specimen) 06/03/2016 11:45 AM EDT 06/03/2016 1:57 PM EDT Narrative Resulting Agency Comment Spec In Lab Mario Alberto Escobedo MD LAB SEND OUT ORDERAB LES Performing Organization Address [facility] Co de Phone Number [facility] [place] [address] * TSH (06/03/2016 11:45 AM EDT) Thyroid Stimulating Hormone 2.18 0.27 - 4.20 mcIU/mL [facility] Blood specimen (specimen) 06/03/2016 11:45 AM EDT 06/03/2016 12:11 PM EDT Narrative Resulting Agency Comment Spec In Lab Mario Alberto Escobedo MD CHEMISTRY ORDERABLES Performing Organization Address [facility] Co de Phone Number [facility] [place] [address] * Homocysteine Total, Plasma (06/03/2016 11:45 AM EDT) Homocystine 9 <=15 mcmol/L [facility] Blood specimen (specimen) 06/03/2016 11:45 AM EDT 06/03/2016 12:11 PM EDT Narrative Resulting Agency Comment Spec In Lab Mario Alberto Escobedo MD CHEMISTRY ORDERABLES Performing Organization Address [facility] Co de Phone Number [facility] [place] [address] * Folate, serum (06/03/2016 11:45 AM EDT) Folate >20.0 4.8 - 24.2 ng/mL [facility] Blood specimen (specimen) 06/03/2016 11:45 AM EDT 06/03/2016 12:04 PM EDT Narrative Resulting Agency Comment Spec In Lab Mario Alberto Escobedo MD CHEMISTRY ORDERABLES Performing Organization Address City/[facility] Co de Phone Number [facility] [place] [address] * (ABNORMAL) Sedimentation rate (06/03/2016 11:45 AM EDT) Pathologist [facility] Sedimentation Rate Automated 41(H) 0 - 20 mm/hr [facility] Blood specimen (specimen) 06/03/2016 11:45 AM EDT 06/03/2016 12:04 PM EDT Narrative Resulting Agency Comment Spec In Lab Mario Alberto Escobedo MD HEMATOLOGY ORDERABLE S Performing Organization Address [facility] Co de Phone Number [facility] [place] [address] * Lactate Dehydrogenase (06/03/2016 11:45 AM EDT) Lactate Dehydrogenase 164 110 - 220 unit/L [facility] Blood specimen (specimen) 06/03/2016 11:45 AM EDT 06/03/2016 12:11 PM EDT Narrative Resulting Agency Comment Spec In Lab Mario Alberto Escobedo MD CHEMISTRY ORDERABLES Performing Organization Address [facility] Co de Phone Number [facility] [place] [address] * Comprehensive metabolic panel (non-fasting) (06/03/2016 11:45 AM EDT) Glucose 90 65 - 199 mg/dL [facility] Comment:Diabetes: >=200 mg/d L plus symptoms Blood Urea Nitrogen 11 8 - 18 mg/dL [facility] Creatinine 0.83 0.70 - 1.20 mg/dL [facility] Comment: Please note that the pediatric reference intervals supplied above were not validated at [facility]. Results from pediatric patients [...] the following links into your internet browser. [email or web address] Blood specimen (specimen) 06/03/2016 11:45 AM EDT 06/03/2016 12:11 PM EDT Narrative Resulting Agency Comment Spec In Lab Mario Alberto Escobedo MD CHEMISTRY ORDERABLES [facility] [place] [address] documented in this encounter Visit Diagnoses Diagnosis [...] Hernandez) documented in this encounter Care Teams Saxophone Player Relationship Specialty Start Date End Date Deborah Quiroga, BARREL LOADER AND CLEANER PCP - General Family Medicine 03/24/16 02/04/23 documented as of this encounter
--- OUTSIDE RECORDS SUMMARY | 2024-04-11 14:22 | XMS_ITS | Encounter Summary ---
[place] [address] Care Team Providers Care Rag Baler Name Role Phone Jerel Sofia Garcia APRN Primary Care Provider [phone] Encounter Details Date Type Department Care Team (Late st Contact Info) Description 11/12/2014 8:10 AM EDT - 11/12/2014 11:59 PM EDT Hospital [place] [address] CLINIC, DR ABE Burrell, Antelmo Porter MD [address] [place] [address] Discharge Disposition: Home Social History Tobacco Use [...] 4:15 PM EDT Office Visit Dermatology at [place] [address] [place] [address] Marek Bonilla MD [address], [place] [address] documented as of this encounter Procedures Procedure [...] mLs documented in this encounter Care Teams Rag Baler Relationship Specialty Start Date End Date Sofia Beltrán APRN [address] [place] [address] PCP - General 11/12/14 03/23/16 documented as of this encounter
--- OUTSIDE RECORDS SUMMARY | 2024-04-11 14:22 | XMS_ITS | Encounter Summary ---
Author Organization [facility] Address [facility] [place] [address] Care Team Providers Care Computer Analyst Supervisor Name Role Phone Deborah Quiroga APRN Primary Care Provider [phone] Encounter Details Date Type Department Care Team (Latest Contact Info) Description 05/19/2016 11:52 AM EDT - 05/19/2016 11:59 PM EDT Hospital Encounter XRay at [address] [place] [address] Alirio Esparza MD Nonrheumatic aortic valve stenosis [...] 4:15 PM EDT Office Visit Dermatology at [place] [address] [place] [address] Marek Bonilla MD [address] [place] [address] documented as of this encounter Procedures Procedure [...] documented in this encounter Care Teams Computer Analyst Supervisor Relationship Specialty Start Date End Date Deborah Quiroga, DIRECTOR OF REVENUE CYCLE MANAGEMENT PCP - General Family Medicine 03/24/16 02/04/23 documented as of this encounter
--- OUTSIDE RECORDS SUMMARY | 2024-04-11 14:23 | XMS_ITS | Encounter Summary ---
[place] [address] Care Team Providers Care Microwave Oven Assembler Name Role Phone Mitchell Wilkes MD Primary Care Provider [phone] Reason for Visit * Reason Onset Date Comments Other 01/18/2014 Encounter Details Date Type Department Care Team (Late st Contact Info) Description 01/18/2014 Telephone Cardiology at [address] [address] Jesusita Garces Other Social [...] PM EDT Office Visit Dermatology at [address] [address] Marek Bonilla MD [address] [place] [address] RD, [place] [address] documented as of this encounter Visit Diagnoses Not on filedocumented in this encounter Care Teams Microwave Oven Assembler Relationship Specialty Start Date End Date Mitchell Wilkes MD [facility] PCP - General 06/24/10 01/19/14 documented as of this encounter
--- OUTSIDE RECORDS SUMMARY | 2024-04-11 14:23 | XMS_ITS | Encounter Summary ---
Author Organization [facility] Address [facility] [place] [address] Care Team Providers Care Algebra Teacher Name Role Phone Mitchell Wilkes MD Primary Care Provider [phone] Encounter Details Date Type Department Care Team (Late st Contact Info) Description 01/19/2014 Orders Only Cardiology at [address] [address] Chele Randolph, [place] [facility] [place] [address] Cardiomyopathy (Primary Dx) Social History Tobacco Use [...] PM EDT Office Visit Dermatology at [place] [address] [place] [address] Marek Bonilla MD [address] [place] [address] documented as of this encounter Procedures Procedure [...] cardiomyopathies documented in this encounter Care Teams Algebra Teacher Relationship Specialty Start Date End Date Mitchell Wilkes MD [facility] PCP - General 06/24/10 01/19/14 documented as of this encounter
[2024-04-11 14:42] VITALS: BP 108/52; PULSE 73
[2024-04-18 14:28] VITALS: BP 112/55; PULSE 75
--- OUTSIDE RECORDS SUMMARY | 2024-04-18 14:33 | XMS_ITS | Encounter Summary ---
Author Organization [facility] Address [address] [place] [address] Care Team Providers Care Bag Machine Helper Name Role Phone Ashley Chavez Primary Care Provider [phone] Encounter Details Date Type Department Care Team (Late st Contact Info) Description 05/12/2022 Lab Requisition [facility] Pathology & Laboratory Medicine - [address] [id number] Outr Resulting Lab, Provider Social History Tobacco [...] 14:32 EDT) Hold Hold 05/12/2022 22:46 EDT [facility] Blood VENOUS BLOOD / Unknown 05/12/2022 14:32 EDT 05/12/2022 21:40 EDT Provider Outr Resulting Lab LAB INFO SER VICE AND SUPPORT & PHONE RESULT Performing Organization Address [facility]/ZIP Co de Phone Number [facility] [address] [place] [address] * (ABNORMAL) HOMOCYSTEINE (05/12/2022 14:32 EDT) Homocysteine 14.7(H) 5.0 - 13.9 umol/L 05/13/2022 9:05 EDT [facility] Comment:Results may be false ly elevated if sample is not collected on ice or is not removed from cells within 1 hour of collection. Blood VENOUS BLOOD / Unknown 05/12/2022 14:32 EDT 05/12/2022 21:40 EDT Narrative [facility] - 05/13/2022 9:05 EDT [...] MD, [facility] Co de Phone Number [facility] [address] [place] [address] * HAPTOGLOBIN (05/12/2022 14:32 EDT) Pathologist [facility] Haptoglobin 138 32 - 197 mg/dL 05/13/2022 9:55 EDT [facility] Blood VENOUS BLOOD / Unknown 05/12/2022 14:32 EDT 05/12/2022 21:36 EDT Provider Outr Resulting Lab CHEMISTRY & BLOOD GAS ORDERABLES Performing Organization Address [facility] Co de Phone Number [facility] [address] [place] [address] * (ABNORMAL) ANTI NUCLEAR AB (FRANCISCO), IFA (05/12/2022 14:32 EDT) FRANCISCO Interpretation Positive(A) Negative 05/13/2022 14:44 EDT [facility] Comment: Result is equal to or greater than 1:5120. For titers greater than or equal to 1:160 (except the centromere, nucleolar, and dense fine speckled patterns) it is recommended that specific, follow-up autoantibody testing (such as for dsDNA and Extractable Nuclear Antigens) be performed on all diffuse and/or speckled patterns. FRANCISCO Titer and Pattern 1 1:5120 Speckled 05/13/2022 14:44 EDT [facility] Blood VENOUS BLOOD / Unknown 05/12/2022 14:32 EDT 05/12/2022 21:36 EDT Narrative [facility] - 05/13/2022 14:44 EDT Results were obtained with the INOVA NOVA Lite HEp-2 FRANCISCO Kit by indirect immunofluorescence. Provider Outr Resulting Lab IMMUNOLOGY A ND SEROLOGY ORDERABLES [facility] [address] [place] [address] documented in this encounter Visit Diagnoses Not on filedocumented in this encounter Care Teams Bag Machine Helper Relationship Specialty Start Date End Date Ashley Chavez ARNP [address] [place] [address] PCP - General 07/11/10 documented as of this encounter
--- OUTSIDE RECORDS SUMMARY | 2024-04-18 14:33 | XMS_ITS | Encounter Summary ---
Author Organization [facility] Address [address] [place] [address] Care Team Providers Care Assistant Director Of Plant Operations Name Role Phone Ashley Chavez Primary Care Provider [phone] Encounter Details Date Type Department Care Team (Late st Contact Info) Description 03/21/2024 Lab Requisition [facility] Pathology & Laboratory Medicine - [address] [address] Outr Resulting Lab, Provider Social History Tobacco [...] 197 mg/dL 03/22/2024 10:25 EDT [facility] Blood VENOUS BLOOD / Unknown 03/21/2024 13:00 EDT 03/21/2024 21:50 EDT Provider Outr Resulting Lab CHEMISTRY & BLOOD GAS ORDERABLES [facility] [address] [place] [address] documented in this encounter Visit Diagnoses Not on filedocumented in this encounter Care Teams Assistant Director Of Plant Operations Relationship Specialty Start Date End Date Ashley Chavez ARNP [address] [place] [address] PCP - General 07/11/10 documented as of this encounter
--- OUTSIDE RECORDS SUMMARY | 2024-04-18 14:33 | XMS_ITS | Clinical Summary ---
Author Organization [facility] Address [address] [place] [address] Care Team Providers Care Machine Filler Servicer Name Role Phone Ashley Chavez Primary Care Provider [phone] Encounters Date Type Department Care Team Description 03/22/2024 Lab Requisition [facility] Pathology & Laboratory [address] [address] Consuelo Guerrero, DO Diaphragmatic hernia without obstruction or gangrene; Anemia, unspecified 03/21/2024 Lab Requisition [facility] Pathology & Laboratory [address] [address] Consuelo Guerrero, DO Encounter for other general examination 03/21/2024 Lab Requisition [facility] Pathology & Laboratory [address] [address] Outr Resulting Lab, Provider from Last 3 [...] 13:00 EDT) LORY Negative 03/21/2024 22:31 EDT [facility] Blood VENOUS BLOOD / Unknown 03/21/2024 13:00 EDT 03/21/2024 21:51 EDT Consuelo Guerrero DO BLOOD BANK TESTS Performing Organization Address [facility] Co de Phone Number [facility] [address] [place] [address] * HAPTOGLOBIN (03/21/2024 13:00 EDT) Haptoglobin 183 32 - 197 mg/dL 03/22/2024 10:25 EDT [facility] Blood VENOUS BLOOD / Unknown 03/21/2024 13:00 EDT 03/21/2024 21:50 EDT Provider Outr Resulting Lab CHEMISTRY & BLOOD GAS ORDERABLES Performing Organization Address [facility]/ZIP Co de Phone Number [facility] [address] [place], [place] [address] * SURGICAL PATHOLOGY (03/21/2024 11:35 EDT) Note to Patient The following pathology results have been interpreted by your pathologist and may be available to you before your health provider has had the opportunity to review them. Please allow time for your provider to receive these results and explore management options, if applicable. 03/24/2024 10:36 EDT [facility] Final Diagnosis A. [...] - Deeper sections x3 examined. 03/24/2024 10:36 [facility] Attestation There was significant resident/fellow involvement in the diagnostic evaluation of this case. By the signature below, the attending physician certifies that they have personally conducted a gross and/or microscopic examination of the described specimens and rendered or confirmed the above diagnosis. 03/24/2024 10:36 [facility] at 1036 Clinical History Anemia, hiatal hernia, 38 cm aguayo diverticulosis 03/24/2024 10:36 [facility] Gross Description A. [...] Luis Torres 03/22/2024 9:36 03/24/2024 10:36 EDT [facility] Resident/Estuardo w: Luis Felipe Bragg DO 03/24/2024 10:36 EDT [facility] Performing Lab [facility] 10:36 EDT [facility] Scanned Images 03/24/2024 10:36 EDT [facility] Tissue POLYP OF [...] 8:19 EDT Consuelo Guerrero DO PATHOLOGY ORDERABLES [facility] [address] [place] [address] from Last 3 Months Care Teams Machine Filler Servicer Relationship Specialty Start Date End Date Ashley Chavez ARNP [address] [place] [address] PCP - General 07/11/10
--- OUTSIDE RECORDS SUMMARY | 2024-04-18 14:33 | XMS_ITS | Encounter Summary ---
Author Organization [facility] Address [address] [place] [address] Care Team Providers Care Cost Specialist Name Role Phone Ashley Chavez Primary Care Provider [phone] Encounter Details Date Type Department Care Team (Late st Contact Info) Description 04/29/2022 Lab Requisition [facility] Pathology & Laboratory Medicine - [address] [address] Outr Resulting Lab, Provider Social History Tobacco [...] Antibody 1.6 <20.0 Units 04/30/2022 12:23 EDT [facility] Comment: ? Negative: <20.0 [...] SEROLOGY ORDERABLES Performing Organization Address [facility] de Phone Number [facility] [address] [place] [address] * SSA ANTIBODIES BY DOMO (04/29/2022 7:51 EDT) SSA Antibody 1.5 <20.0 Units 04/30/2022 12:22 EDT [facility] Comment: ? Negative: <20.0 [...] ND SEROLOGY ORDERABLES Performing Organization Address [facility] de Phone Number [facility] [address] [place] [address] documented in this encounter Visit Diagnoses Not on filedocumented in this encounter Care Teams Cost Specialist Relationship Specialty Start Date End Date Ashley Chavez ARNP [address] [place] [address] PCP - General 07/11/10 documented as of this encounter
--- OUTSIDE RECORDS SUMMARY | 2024-04-18 14:33 | XMS_ITS | Encounter Summary ---
Author Organization [facility] Address [address] [place] [address] Care Team Providers Care Braid Folder Name Role Phone Ashley Chavez Primary Care Provider [phone] Encounter Details Date Type Department Care Team (Late st Contact Info) Description 01/07/2023 Lab Requisition [facility] Pathology & Laboratory Medicine - [address] [address] Outr Resulting Lab, Provider Social History Tobacco [...] 56.2 55.8 - 66.1 % 01/08/2023 11:28 [facility] Albumin g/dL 3.9 3.6 - 5.2 g/dL 01/08/2023 11:28 [facility] Alpha-1 % 5.1(H) 2.9 - 4.9 % 01/08/2023 11:28 [facility] Alpha-1 g/dL 0.40 0.15 - 0.40 g/dL 01/08/2023 11:28 [facility] Alpha-2 % 7.0(L) 7.1 - 11.8 % 01/08/2023 11:28 [facility] Alpha-2 g/dL 0.50 0.50 - 1.00 g/dL 01/08/2023 11:28 [facility] Beta % 12.7 8.4 - 13.1 % 01/08/2023 11:28 [facility] Beta g/dL 0.90 0.60 - 1.20 g/dL 01/08/2023 11:28 [facility] Gamma % 19.0(H) 11.1 - 18.8 % 01/08/2023 11:28 [facility] Gamma g/dL 1.30 0.60 - 1.60 g/dL 01/08/2023 11:28 [facility] SPEP Comment No apparent monoclonal protein seen on serum electrophoresis 01/08/2023 11:28 [facility] Comment:See scanned/suppleme ntary report. Total Protein 6.9 6.3 - 8.2 g/dL 01/08/2023 11:28 [facility] Blood VENOUS BLOOD / Unknown 01/06/2023 14:40 EDT 01/07/2023 17:37 EDT Provider Outr Resulting Lab CHEMISTRY & BLOOD GAS ORDERABLES Performing Organization Address City/State/[facility] Co de Phone Number [facility] [address] [place] [address] * PROTEIN, TOTAL (01/06/2023 14:40 EDT) Blood VENOUS BLOOD / Unknown 01/06/2023 14:40 EDT 01/07/2023 17:37 EDT Provider Outr Resulting Lab CHEMISTRY & BLOOD GAS ORDERABLES Performing Organization Address [facility] Co de Phone Number [facility] [address] [place] [address] * (ABNORMAL) EXTRACTABLE NUCLEAR ANTIGEN PANEL (01/06/2023 14:40 EDT) SSA Antibody 1.3 <20.0 Units 01/08/2023 15:42 EDT [facility] Comment: ? Negative: [...] Antibody 1.5 <20.0 Units 01/08/2023 15:42 EDT [facility] Comment: ? Negative: [...] Antibody 15.3 <20.0 Units 01/08/2023 15:42 EDT [facility] Comment: ? Negative: <20.0 Units ? Weak Positive: 20.0 - 39.9 Units ? Moderate Positive: 40.0 - 80.0 Units ? Strong Positive: >80.0 Units Results were obtained with the [employer] QUANTA Lite Sm DOMO. ??Sm values obtained with different manufacturers' assay methods may not be used interchangeably. ??The magnitude of the reported IgG levels cannot be correlated to an endpoint titer. OCEAN EXPORT ACCOUNT MANAGER Antibody 149.1(H) <20.0 Units 01/08/2023 15:42 EDT [facility] Comment: ? Negative: <20.0 Units ? Weak Positive: 20.0 - 39.9 Units ? Moderate Positive: 40.0 - 80.0 Units ? Strong Positive: >80.0 Units Results were obtained with the [employer] Heartbe[employer] Quanta Lite OCEAN EXPORT ACCOUNT MANAGER DOMO. OCEAN EXPORT ACCOUNT MANAGER values obtained with different medical front desk specialist's assay methods may not be used interchangeaby. ??The magnitude of the reported IgG levels cannot be be correlated to an endpoint titer. A positive result in the Quanta Lite OCEAN EXPORT ACCOUNT MANAGER DOMO indicates the presence of antibodies reactive with the OCEAN EXPORT ACCOUNT MANAGER/Sm complex but cannot distinguish between anti-Sm and anti-OCEAN EXPORT ACCOUNT MANAGER activity. Blood VENOUS BLOOD / Unknown 01/06/2023 14:40 EDT 01/07/2023 17:37 EDT Provider Outr Resulting Lab IMMUNOLOGY A ND SEROLOGY ORDERABLES [facility] [address] [place] [address] * (ABNORMAL) ANTI NUCLEAR AB (FRANCISCO), IFA (01/06/2023 14:40 EDT) FRANCISCO Interpretation Positive(A) Negative 01/08/2023 15:22 EDT [facility] Comment: Result is [...] Pattern 1 1:5120 Speckled 01/08/2023 15:22 EDT [facility] Blood VENOUS BLOOD / Unknown 01/06/2023 14:40 EDT 01/07/2023 17:37 EDT Narrative [facility] - 01/08/2023 15:22 EDT Results were obtained with the INOVA NOVA Lite HEp-2 FRANCISCO Kit by indirect immunofluorescence. Provider Outr Resulting Lab IMMUNOLOGY A ND SEROLOGY ORDERABLES Performing Organization Address City/State/[facility] Co de Phone Number [facility] [address] [place] [address] documented in this encounter Visit Diagnoses Not on filedocumented in this encounter Care Teams Braid Folder Relationship Specialty Start Date End Date Ashley Chavez ARNP [address] [place] [address] PCP - General 07/11/10 documented as of this encounter
--- OUTSIDE RECORDS SUMMARY | 2024-04-18 14:33 | XMS_ITS | Encounter Summary ---
Author Organization [facility] Address [address] [place] [address] Care Team Providers Care Manager Human Resources Name Role Phone Scott Ashley WILLIAM Primary Care Provider [phone] Encounter Details Date Type Department Care Team (Late st Contact Info) Description 05/12/2019 Results Only [facility] [phone] Nadira Gregorio MD [address] [place] [phone] Social History Tobacco Use Types Packs/Day [...] ? 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 Accession #: ? [id number] ? : ? 1955 (Age: 63) ??F ? Collect Date: ? 05/12/2019 ? Location: ? [facility] ? Receive Date: ? 05/12/2019 ? Provider: NADIRA GREGORIO MD Copy to: [facility] ? Final Pathologic Diagnosis: COLON, CECUM, POLYP, [...] (ASCP) 05/12/2019 6:08 PM End of Report [facility] 05/12/2019 16:0 3 EDT 05/12/2019 16:03 EDT Nadira Gregorio MD PATHOLOGY ORDERABLES [facility] [address] [place] [address] documented in this encounter Visit Diagnoses Not on filedocumented in this encounter Care Teams Manager Human Resources Relationship Specialty Start Date End Date Ashley Chavez ARNP [address] [place] [address] PCP - General 07/11/10 documented as of this encounter
--- OUTSIDE RECORDS SUMMARY | 2024-04-18 14:33 | XMS_ITS | Encounter Summary ---
Author Organization [facility] Address [address] [place] [address] Care Team Providers Care Sales Representative Door To Door Name Role Phone Ashley Chavez Primary Care Provider [phone] Encounter Details Date Type Department Care Team (Latest Contact Info) Description 05/12/2019 13:18 EDT - 05/12/2019 23:59 EDT Hospital Encounter [address] [address] Unknown, Provider, Discharge Disposition: Home or Self Care Social History Tobacco Use Types Packs/Day Years Used Date Smoking Tobacco: Never Assessed Sex and Gender Information Value Date Recorded Sex Assigned at Not on file Gender Identity Not on file Sexual Orientation Not on file documented as of this encounter Discharge Disposition Disposition Code Departure Means Destination Home or Self Shelter documented in this encounter Plan of Treatment Not on file documented as of this encounter Visit Diagnoses Not on filedocumented in this encounter Care Teams Sales Representative Door To Door Relationship Specialty Start Date End Date Ashley Chavez ARNP [address] [place] [address] PCP - General 07/11/10 documented as of this encounter
--- OUTSIDE RECORDS SUMMARY | 2024-04-18 14:33 | XMS_ITS | Encounter Summary ---
Author Organization [facility] Address [address] [place] [address] Care Team Providers Care Jukebox Routeman Name Role Phone Ashley Chavez Primary Care Provider [phone] Encounter Details Date Type Department Care Team (Late st Contact Info) Description 03/22/2024 Lab Requisition [facility] Pathology & Laboratory Medicine - [address] [address] Consuelo Guerrero, DO [address] [place], [place] [address] Diaphragmatic hernia without obstruction or gangrene; Anemia, [...] explore management options, if applicable. 03/24/2024 10:36 [facility] Final Diagnosis A. [...] - Deeper sections x3 examined. 03/24/2024 10:36 [facility] Attestation There was significant resident/fellow involvement in the diagnostic evaluation of this case. By the signature below, the attending physician certifies that they have personally conducted a gross and/or microscopic examination of the described specimens and rendered or confirmed the above diagnosis. 03/24/2024 10:36 [facility] at 1036 Clinical History Anemia, hiatal hernia, 38 cm aguayo diverticulosis 03/24/2024 10:36 [facility] Gross Description A. [...] Luis Torres 03/22/2024 9:36 03/24/2024 10:36 EDT [facility] Resident/Estuardo w: Luis Felipe Bragg DO 03/24/2024 10:36 T [facility] Performing Lab [facility] 10:36 T [facility] Scanned Images 03/24/2024 10:36 T [facility] Tissue POLYP OF COLON [...] 8:19 EDT Consuelo Guerrero DO PATHOLOGY ORDERABLES [facility] [address] [place] [address] documented in this encounter Visit Diagnoses Diagnosis Diaphragmatic hernia without obstruction or gangrene Diaphragmatic hernia without mention of obstruction or gangrene Anemia, unspecified documented in this encounter Care Teams Jukebox Routeman Relationship Specialty Start Date End Date Ashley Chavez ARNP [address] [place] [address] PCP - General 07/11/10 documented as of this encounter
--- OUTSIDE RECORDS SUMMARY | 2024-04-18 14:33 | XMS_ITS | Encounter Summary ---
Author Organization [facility] Address [address] [place] [address] Care Team Providers Care Fur Remodeler Name Role Phone Scott, Ashley WILLIAM Primary Care Provider [phone] Encounter Details Date Type Department Care Team (Late st Contact Info) Description 03/21/2024 Lab Requisition [facility] Pathology & Laboratory Medicine - [address] [address] Consuelo Guerrero, DO [address] [place], [place] [address] Encounter for other general examination Social History [...] LORY Negative 03/21/2024 22:31 EDT [facility] Blood VENOUS BLOOD / Unknown 03/21/2024 13:00 EDT 03/21/2024 21:51 EDT Consuelo Guerrero DO BLOOD BANK TESTS [facility] [address] [place] [address] documented in this encounter Visit Diagnoses Diagnosis Encounter for other general examination documented in this encounter Care Teams Fur Remodeler Relationship Specialty Start Date End Date Ashley Chavez ARNP [address] [place] [address] PCP - General 07/11/10 documented as of this encounter
--- OUTSIDE RECORDS SUMMARY | 2024-04-18 14:33 | XMS_ITS | Referral Summary ---
Author Organization [facility] Address [address] [place] [address] Care Team Providers Care Phd Intern Name Role Phone Ashley Chavez Primary Care Provider [phone] Encounters Date Type Department Care Team Description 03/22/2024 Lab Requisition [facility] Pathology & Laboratory [address] [address] Consuelo Guerrero, DO Diaphragmatic hernia without obstruction or gangrene; Anemia, unspecified 03/21/2024 Lab Requisition [facility]ology & Laboratory [address] [address] Consuelo Guerrero DO Encounter for other general examination 03/21/2024 Lab Requisition [facility] & Laboratory [address] [address] Outr Resulting Lab, Provider from Last 3 [...] EDT) LORY Negative 03/21/2024 22:31 EDT [facility] Blood VENOUS BLOOD / Unknown 03/21/2024 13:00 EDT 03/21/2024 21:51 EDT Consuelo Guerrero DO BLOOD BANK TESTS Performing Organization Address [facility] Co de Phone Number [facility] [address] [place] [address] * HAPTOGLOBIN (03/21/2024 13:00 EDT) Haptoglobin 183 32 - 197 mg/dL 03/22/2024 10:25 EDT [facility] Blood VENOUS BLOOD / Unknown 03/21/2024 13:00 EDT 03/21/2024 21:50 EDT Provider Outr Resulting Lab CHEMISTRY & BLOOD GAS ORDERABLES Performing Organization Address [facility] Co de Phone Number [facility] [address] [place] [address] * SURGICAL PATHOLOGY (03/21/2024 11:35 EDT) Note to Patient The following pathology results have been interpreted by your pathologist and may be available to you before your health provider has had the opportunity to review them. Please allow time for your provider to receive these results and explore management options, if applicable. 03/24/2024 10:36 EDT [facility] Final Diagnosis A. JEJUNUM, [...] Deeper sections x3 examined. 03/24/2024 10:36 [facility] Attestation There was significant resident/fellow involvement in the diagnostic evaluation of this case. By the signature below, the attending physician certifies that they have personally conducted a gross and/or microscopic examination of the described specimens and rendered or confirmed the above diagnosis. 03/24/2024 10:36 [facility] at 1036 Clinical History Anemia, hiatal hernia, 38 cm aguayo diverticulosis 03/24/2024 10:36 [facility] Gross Description [...] Luis Torres 03/22/2024 9:36 03/24/2024 10:36 EDT [facility] Resident/Estuardo w: Luis Felipe Bragg DO 03/24/2024 10:36 EDT [facility] Performing Lab [facility] 10:36 EDT [facility] Scanned Images 03/24/2024 10:36 EDT [facility] Tissue POLYP OF COLON [...] 8:19 EDT Consuelo Guerrero DO PATHOLOGY ORDERABLES [facility] [address] [place] [address] from Last 3 Months Care Teams Phd Intern Relationship Specialty Start Date End Date Ashley Chavez ARNP [address] [place] [address] PCP - General 07/11/10
--- OUTSIDE RECORDS SUMMARY | 2024-04-18 14:33 | XMS_ITS | Encounter Summary ---
Author Organization [facility] Address [address] [place] [address] Care Team Providers Care Order Caller Name Role Phone Scott, Ashley WILLIAM Primary Care Provider [phone] Encounter Details Date Type Department Care Team (Late st Contact Info) Description 12/23/2016 Results Only [facility] [place] [phone] Deborah Quiroga, STATEMENT CLERKS SUPERVISOR [address] [place] [address] [phone] Social History Tobacco Use Types Packs/Day Years [...] ? 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 Accession #: ? [id number] ? : ? 1955 (Age: 61) ??F ?Collect Date: ? 12/23/2016 ? Location: ? [facility] ? Receive Date: ? 12/25/2016 ? Provider: DEBORAH QUIROGA MILLING MACHINE TENDER Copy to: ? Final Report SPECIMEN ADEQUACY ? Satisfactory for Evaluation - transformation zone component present GENERAL CATEGORIZATION ? Negative for Intraepithelial Lesion or Malignancy ?? Last Menstrual Period: years Specimen/Source: ??Pap Test, Cervix, ThinPrep Imaging System with manual evaluation Document reviewed and electronically signed by: ? Monica Cason [facility](ASCP) ? Report ??Date: 01/06/2017 09:11 HPV with Pap Test ? Date Ordered: ? 01/06/2017 ? Status: ?? Signed Out ?Date Complete: ? 01/07/2017 ? By: ??System Interface ? Date Reported: ? 01/07/2017 ? Interpretation RESULT: Negative for HPV. No E6 or E7 mRNA is detected from HPV types 16,18,31,33,35, 39,45,51,52,56,58, 59,66, and 68 by salad chef mediated amplification. Comments Document reviewed and electronically signed by: ? System Interface ? Report date: 01/07/2017 By the signature above, the attending physician certifies that he/she has personally conducted a gross and/or microscopic examination of the described specimens and rendered or confirmed the above diagnosis. End of Report [facility] 12/23/2016 12/25/2016 Deborah Quiroga STATEMENT CLERKS SUPERVISOR PATHOLOGY ORDERABLES [facility] [address] [place] [address] documented in this encounter Visit Diagnoses Not on filedocumented in this encounter Care Teams Order Caller Relationship Specialty Start Date End Date Ashley Chavez ARNP [address] [place] [address] PCP - General 07/11/10 documented as of this encounter
--- OUTSIDE RECORDS SUMMARY | 2024-04-18 14:33 | XMS_ITS | Encounter Summary ---
Author Organization [facility] Address [address] [place] [address] Care Team Providers Care Senior Billing Consultant Name Role Phone Ashley Chavez Primary Care Provider [phone] Encounter Details Date Type Department Care Team (Late st Contact Info) Description 10/30/2022 Lab Requisition [facility] Pathology & Laboratory Medicine - [address] [address] Outr Resulting Lab, Provider Social History Tobacco [...] Stranded) <12.3 <30.0 IU/mL 11/03/2022 13:08 EDT [facility] Comment: ? Negative: ??<30.0 IU/mL ? Borderline Positive: ??30.0 - 75.0 IU/mL ? Positive: ??>75.0 IU/mL Results were obtained with the INOVA QUANTA Lite dsDNA SC DOMO assay on the dVisit DSX. Blood VENOUS BLOOD / Unknown 10/29/2022 14:00 EDT 10/30/2022 19:27 EDT Provider Outr Resulting Lab IMMUNOLOGY A ND SEROLOGY ORDERABLES Performing Organization Address [facility] de Phone Number [facility] [address] [place] [address] * SM (MORENO) ANTIBODY (10/29/2022 14:00 EDT) [facility] SM (Moreno) Antibody 18.5 <20.0 Units 11/03/2022 14:26 EDT [facility] Comment: ? Negative: [...] ND SEROLOGY ORDERABLES Performing Organization Address [facility] de Phone Number [facility] [address] [place] [address] documented in this encounter Visit Diagnoses Not on filedocumented in this encounter Care Teams Senior Billing Consultant Relationship Specialty Start Date End Date Ashley Chavez ARNP [address] [place] [address] PCP - General 07/11/10 documented as of this encounter
--- OUTSIDE RECORDS SUMMARY | 2024-04-18 14:33 | XMS_ITS | Encounter Summary ---
Author Organization [facility] Address [address] [place] [address] Care Team Providers Care Head Of Digital Advertising & Integration Name Role Phone Ashley Chavez Primary Care Provider [phone] Encounter Details Date Type Department Care Team (Late st Contact Info) Description 12/17/2021 Lab Requisition [facility] Pathology & Laboratory Medicine - [address] [address] Outr Resulting Lab, Provider Social History Tobacco [...] Negative Negative 12/18/2021 10:37 EDT [facility] Blood VENOUS BLOOD / Unknown 12/17/2021 13:30 EDT 12/17/2021 21:32 EDT Provider Outr Resulting Lab IMMUNOLOGY A ND SEROLOGY ORDERABLES Performing Organization Address [facility] Co de Phone Number [facility] [address] [place] [address] * (ABNORMAL) ANTI NUCLEAR AB (FRANCISCO), IFA (12/17/2021 13:30 EDT) FRANCISCO Interpretation Positive(A) Negative 12/18/2021 16:06 EDT [facility] Comment: For titers [...] 1:1280 Speckled 12/18/2021 16:06 EDT [facility] Blood VENOUS BLOOD / Unknown 12/17/2021 13:30 EDT 12/17/2021 21:32 EDT Narrative [facility] - 12/18/2021 16:06 EDT Results were obtained with the INOVA NOVA Lite HEp-2 FRANCISCO Kit by indirect immunofluorescence. Provider Outr Resulting Lab IMMUNOLOGY A ND SEROLOGY ORDERABLES Performing Organization Address [facility] Co de Phone Number [facility] [address] [place] [address] documented in this encounter Visit Diagnoses Not on filedocumented in this encounter Care Teams Head Of Digital Advertising & Integration Relationship Specialty Start Date End Date Ashley Chavez ARNP [address] [place] [address] PCP - General 07/11/10 documented as of this encounter
--- OUTSIDE RECORDS SUMMARY | 2024-04-18 14:34 | XMS_ITS | Encounter Summary ---
[facility] [place] [address] Care Team Providers Care Motor Transport Inspector Name Role Phone Magdalena Acosta MD [...] Care Team (Late st Contact Info) Description 05/12/2024 9:00 AM EDT Appointment H[place]ology [place] [address] 05/12/2024 10:00 AM EDT Office Visit Hematology [place] [phone] Markel Borjas MD [facility] [address] [place] [address] 03/01/2025 4:15 PM EDT Office Visit Dermatology at [place] [address] [place] [phone] Marek Bonilla MD [address], [place] [address] documented as of this encounter Visit Diagnoses Not on filedocumented in this encounter Care Teams Motor Transport Inspector Relationship Specialty Start Date End Date Magdalena Acosta MD [address] [place] [address] PCP - General Family Medicine 02/05/23 documented as of this encounter
--- OUTSIDE RECORDS SUMMARY | 2024-04-18 14:34 | XMS_ITS | Encounter Summary ---
Author Organization [facility] [place] [address] Care Team Providers Care Customs Consultant Name Role Phone Magdalena Acosta MD Primary Care Provider [phone] Reason for Referral * Diagnostic Test (Routine) - New Request Specialty Diagnoses / Procedures Referred By Contac t Referred To Contact Cardiology Diagnoses S/P TAVR (transcatheter aortic valve replacement) Procedures Echocardiogram Transthoracic Antelmo Sharma MD [facility] [place] [address] [facility] [place] [address] Referral ID Status Reason Start Date Expiration Date Visits Requested Visits Authorized [id number] New Request Specialty Service Requested 12/16/2023 12/15/2024 1 1 Encounter Details Date Type Department Care Team (Late st Contact Info) Description 12/16/2023 Orders Only Cardiology at [address] [address] Antelmo Sharma MD [facility] [place] [address] S/P TAVR (transcatheter aortic valve [...] AM EDT Appointment Hematology [place] [address] 05/12/2024 10:00 AM EDT Office Visit Hematology [place] [address] Markel Borjas MD [facility] [address] HEMATOLOGY [place] [address] 03/01/2025 4:15 PM EDT Office Visit Dermatology at [place] [address] [phone] Marek Bonilla MD [address] [place] [address] Scheduled Orders Name Type Priority Associated Diagnoses [...] replacement) documented in this encounter Care Teams Customs Consultant Relationship Specialty Start Date End Date Magdalena Acosta MD [address] [place] [address] PCP - General Family Medicine 02/05/23 documented as of this encounter
--- OUTSIDE RECORDS SUMMARY | 2024-04-18 14:34 | XMS_ITS | Encounter Summary ---
Author Organization [facility] [place] [address] Care Team Providers Care Milieu Counselor Name Role Phone Magdalena Acosta MD Primary Care Provider [phone] Encounter Details Date Type Department Care Team (Late st Contact Info) Description 07/08/2023 10:15 AM EST Office Visit Cardiology at [address] [phone] Severe aortic stenosis Social History Tobacco Use [...] AM EDT Appointment H[place] [address] 05/12/2024 10:00 AM EDT Office Visit H[place]ology [place] [address] Markel Borjas MD [facility] [address] [place] [address] 03/01/2025 4:15 PM EDT Office Visit Dermatology at [place] [address] [place] [address] Marek Bonilla MD [address], [place] [address] documented as of this encounter Procedures Procedure [...] (Bezet) 449 ms MUSE SYSTEM Calculated P [place] 66 degrees MUSE SYSTEM Calculated R [place] 60 degrees MUSE SYSTEM Calculated T [place] 53 degrees MUSE SYSTEM INTERPRETATION Normal sinus rhythm Minimal voltage criteria for LVH, may be normal variant ( Sokolow-Orozco ) ST & T wave abnormality, consider lateral ischemia ??vs. repolarization abnormality from LVH Abnormal ECG When compared with ECG of 13-MAY-2023 09:22, Premature ventricular complexes are no longer Present Minimal criteria for Septal infarct are no longer Present Confirmed by Maxx Best ([id number]) on 07/09/2023 10:07:22 AM MUSE SYSTEM 07/08/2023 10:2 7 AM EST 07/09/2023 10:07 AM EST Brody Dale Eusebio OSBORN ECG ORDERABLES [email or web address] SYSTEM documented in this encounter Visit Diagnoses Diagnosis Severe aortic stenosis Aortic valve disorders documented in this encounter Care Teams Milieu Counselor Relationship Specialty Start Date End Date Magdalena Acosta MD [address] [place] [address] PCP - General Family Medicine 02/05/23 documented as of this encounter
--- OUTSIDE RECORDS SUMMARY | 2024-04-18 14:34 | XMS_ITS | Encounter Summary ---
[place] [address] Care Team Providers Care Iron Handler Name Role Phone Magdalena Acosta MD Primary Care Provider [phone] Encounter Details Date Type Department Care Team (Latest Contact Info) Description 10/05/2023 10:52 AM EST - 10/05/2023 11:59 PM [facility] Hospital En[place] [address] Mixed connective tissue disease Discharge Disposition: Home [...] AM EDT Appointment Hematology [place] [address] 05/12/2024 10:00 AM EDT Office Visit Hematology [place] [address] Markel Borjas MD [facility] [address] [place] [address] 03/01/2025 4:15 PM EDT Office Visit Dermatology at [place] [address] [place] [address] Marek Bonilla MD [address], [place] [address] documented as of this encounter Procedures Procedure [...] PFT FEV1/FVC Pre-BD Z-Score 0 COMPAS PFT VFS14-93 Actual Pre-BD 2.41 % COMPAS PFT GUL11-60 Predicted 1.8 % COMPAS PFT FWV53-41 Pre-BD % of Predicted 134 % COMPAS PFT EZC58-06 Pre-BD Z-Score 0.81 COMPAS PFT DLCO Hb [...] tissue documented in this encounter Care Teams Iron Handler Relationship Specialty Start Date End Date Magdalena Acosta MD [address] [place] [address] PCP - General Family Medicine 02/05/23 documented as of this encounter
--- OUTSIDE RECORDS SUMMARY | 2024-04-18 14:34 | XMS_ITS | Encounter Summary ---
Author Organization [facility] [place] [address] Care Team Providers Care Arson Investigator Name Role Phone Magdalena Acosta MD Primary Care Provider [phone] Reason for Referral * Diagnostic Test (Routine) - Closed Specialty Diagnoses / Procedures Referred By Contac t Referred To Contact Cardiology Diagnoses S/P TAVR (transcatheter aortic valve replacement) Procedures Echocardiogram Transthoracic Vinod Juárez PA [facility] [place] [address] [facility] [place] [address] Referral ID Status Reason Start Date Expiration Date V isits Requested Visits Authorized [id number] Closed Specialty Service Requested 05/22/2023 05/21/2024 1 1 Reason for Visit * Diagnostic Test (Routine) - Closed Specialty Diagnoses / Procedures Referred By Contac t Referred To Contact Cardiology Diagnoses S/P TAVR (transcatheter aortic valve replacement) Procedures Echocardiogram Transthoracic Vinod Juárez PA [facility] [place] [address] [facility] [place] [address] Referral ID Status Reason Start Date Expiration Date V isits Requested Visits Authorized [id number] Closed Specialty Service Requested 05/22/2023 05/21/2024 1 1 Encounter Details Date Type Department Care Team (Latest Contact Info) Description 07/08/2023 10:19 AM EST - 07/08/2023 11:59 PM EST Hospital Encounter Non-[place] [address] Alirio Esparza MD S/P TAVR (transcatheter aortic [...] AM EDT Appointment Hematology [place] [address] 05/12/2024 10:00 AM EDT Office Visit Hematology [place] [address] Markel Borjas MD [facility] [address] [place] [address] 03/01/2025 4:15 PM EDT Office Visit Dermatology at [address] [place] [address] Marek Bonilla MD [address] [facility] [place] [address] documented as of this encounter Procedures Procedure [...] EST Narrative 07/08/2023 12:26 PM EST [address] [place] [address] ? Echocardiogram Report Name: ONESIMO THACKER ?Study Date: 07/08/2023 10:31 AMBP: 118/60 mmHg ? Patient Location: : 1955 ? Height: 155 cm ? Account: [id number] Age: 67 yrs ? Weight: 74 kg Gender: Female ?BSA: 1.7 m2 Ordering Physician: ALIRIO ESPARZA Referring Physician: VINOD JUÁREZ Performed By: Felicia Norris RDCS Reason For Study: S/P TAVR Exam Location: [facility]. Interpretation Summary Left ventricular systolic function is [...] no significant change (post-procedure). Procedure Limited - 06984. Doppler - 22754. Color Doppler - 97516. Satisfactory quality. This study is limited because [...] Note Lee Kincaid MD - 07/08/2023 [address] [place] [address] Echocardiogram Report Name: ANDREWONESIMO Study Date: 310:31 AMBP: 118/60 mmHg Patient Location: : 1955 Height: 155 cm Account: [id number] Age: 67 yrs Weight: 74 kg Gender: Female BSA: 1.7 m2 Ordering Physician: ALIRIO ESPARZA Referring Physician: VINOD JUÁREZ Performed By: Felicia Norris RDCS Reason For Study: S/P TAVR Exam Location: [facility]. Interpretation Summary Left ventricular systolic function is [...] is nosignificant change (post-procedure). Procedure Limited - 39712. Doppler - 99441. Color Doppler - 35348. Satisfactoryquality. This study is limited because of [...] replacement) documented in this encounter Care Teams Arson Investigator Relationship Specialty Start Date End Date Magdalena Acosta MD [address] [place] [address] PCP - General Family Medicine 02/05/23 documented as of this encounter
--- OUTSIDE RECORDS SUMMARY | 2024-04-18 14:34 | XMS_ITS | Encounter Summary ---
Author Organization [facility] Address [address] [place] [address] Care Team Providers Care Specialty Person Name Role Phone Ashley Chavez Primary Care Provider [phone] Encounter Details Date Type Department Care Team (Late st Contact Info) Description 06/23/2016 Results Only [facility] [phone] Matthew Acevedo, DO [address] [facility] TOD[place] [address] [place] [address] Social History Tobacco Use Types Packs/Day [...] ? 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 Accession #: ? [id number] : ? 1955 (Age: 60) ??F ?Collect [...] ??400 ?? KARYOTYPE: 46,XX[25] End of Report [facility] 06/23/2016 06/24/2016 Matthew Acevedo DO PATHOLOGY ORDER JODIE [facility] [address] [place] [address] * FLOW CYTOMETRY (06/23/2016 0:00 EST) Pathology Report: FLOW CYTOMETRY REPORT Reports generated via electronic interface contain original data; however they are lacking the format of the original report. Caution should be taken when reading/interpreting unformatted reports. Name: ? 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 Accession #: ? [id number] : ? 1955 (Age: 60) ??F ?Collect Date: ? 06/23/2016 00:00 Location: ? [facility] ? Receive Date: ? 06/24/2016 08:00 Provider: ?MATTHEW ACEVEDO DO Copy to: ?WINTER HANKINS SALESPERSON WIGS MARIO ALBERTO RAMOS MD ? FINAL IMMUNOPHENOTYPIC INTERPRETATION: ? Bone marrow, flow cytometric analysis: -No immunophenotypic evidence of a clonal cell population. ??See comment. ? COMMENT: The results of flow cytometry show no immunophenotypic evidence of involvement by a clonal lymphoproliferative or myeloproliferative disorder. ??Correlation of these findings with morphologic and clinical data is essential. ??Please refer to pathology report number [id number] for morphologic details. ? Document reviewed and [...] the Department of Pathology and Laboratory Medicine, [place], [place] ??It has not been cleared or [...] clinical laboratory testing. End of Report ?? [facility] 06/23/2016 06/24/2016 8:0 0 EST Matthew Acevedo DO PATHOLOGY ORDER JODIE [facility] [address] [place] [address] * BONE MARROW/HEMPATH CONSULT (06/23/2016 0:00 EST) Pathology Report: BONE MARROW REPORT Reports generated via electronic interface contain original data; however they are lacking the format of the original report. Caution should be taken when reading/interpreting unformatted reports. Name: ? 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 Accession #: ? [id number] : ? 1955 (Age: 60) ??F ?Collect Date: ? 06/23/2016 Location: ? [facility] ? Receive Date: ? 06/24/2016 Provider: ? MATTHEW ACEVEDO DO Copy to: ?WINTER HANKINS SALESPERSON WIGS MARIO ALBERTO RAMOS MD ? DIAGNOSIS: Peripheral [...] #1: Aggregate biopsy length: 8 mm with phlebotomy program coordinator trabeculae of lamellar bone, cellular bone marrow, [...] SEE ABOVE DISCUSSION Lambda (polyclonal, Dako) ??(B1): Marydel (polyclonal, Dako) ??(B1): Biopsy (decalcified) #2: Aggregate biopsy length: 8 mm with phlebotomy program coordinator trabeculae of lamellar bone, cellular bone marrow, [...] (M115, Leica) ??(B2): Lambda (polyclonal, Dako) ??(B2): Marydel (polyclonal, Dako) ??(B2): NOTE: ??One or more [...] ? 1% Blasts ?1% Special Studies Cytogenetics ([id number]): Pending. Flow Cytometry ([id number]): No immunophenotypic evidence of a clonal cell population. ? End of Report [facility] 06/23/2016 06/24/2016 Matthew Acevedo DO PATHOLOGY ORDER JODIE [facility] [address] [place] [address] documented in this encounter Visit Diagnoses Not on filedocumented in this encounter Care Teams Specialty Person Relationship Specialty Start Date End Date Ashley Chavez ARNP [address] [place] [address] PCP - General 07/11/10 documented as of this encounter
--- OUTSIDE RECORDS SUMMARY | 2024-04-18 14:34 | XMS_ITS | Encounter Summary ---
Author Organization [facility] [place] [address] Care Team Providers Care Biometrics Experimentalist Name Role Phone Magdalena Acosta MD Primary Care Provider [phone] Encounter Details Date Type Department Care Team [...] AM EDT Appointment [place]ology [place] [address] 05/12/2024 10:00 AM EDT Office Visit [place]ematology [place] [address] Markel Borjas MD [facility] [address] [place] [address] 03/01/2025 4:15 PM EDT Office Visit Dermatology at [place] [address] [place] [phone] Marek Bonilla MD [address], [place] [address] documented as of this encounter Visit Diagnoses Not on filedocumented in this encounter Care Teams Biometrics Experimentalist Relationship Specialty Start Date End Date Magdalena Acosta MD [address] [place] [address] PCP - General Family Medicine 02/05/23 documented as of this encounter
--- OUTSIDE RECORDS SUMMARY | 2024-04-18 14:34 | XMS_ITS | Encounter Summary ---
Author Organization [facility] Address [address] [place] [address] Care Team Providers Care Lining Presser Name Role Phone Scott Ashley WILLIAM Primary Care Provider [phone] Encounter Details Date Type Department Care Team (Late st Contact Info) Description 11/10/2013 Results Only [facility] [phone] Jeni Laird, CLIENT STRATEGIST [address] [place], [place] [phone] Social History Tobacco Use Types Packs/Day Years [...] ? 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 Accession #: ? [id number] : ? 1955 (Age: 58) ??F ?Collect Date: ? 11/10/2013 Location: ? [facility] ? Receive Date: ? 11/14/2013 Provider: ?JENI LAIRD CLIENT STRATEGIST Copy to: ? Specimen/Source: ?Pap Test, Endocervix, [...] Report Date: ??11/20/2013 11:42 End of Report PUAL ARELLANO 11/10/2013 11/14/2013 Jeni Laird CLIENT STRATEGIST PATHOLOGY ORDERAB LES Performing Organization Address City/State/[facility] Co de Phone Number PAUL ARELLANO [address] [place] [address] documented in this encounter Visit Diagnoses Not on filedocumented in this encounter Care Teams Lining Presser Relationship Specialty Start Date End Date Ashley Chavez ARNP [address] [place] [address] PCP - General 07/11/10 documented as of this encounter
--- OUTSIDE RECORDS SUMMARY | 2024-04-18 14:34 | XMS_ITS | Encounter Summary ---
Author Organization [facility] Address [address] [place] [address] Care Team Providers Care Computer Science Instructor Name Role Phone Unavailable Primary Care Provider Unavailabl e Encounter Details Date Type Department Care Team (Late st Contact Info) Description 06/29/2007 Results Only [facility] [address] [place] [address] Sánchez Acevedo MD [address] [place] [address] Social History Tobacco Use Types Packs/Day Years [...] reading/interpreti ng unformatted reports. Name: ? PURNIMA THACKRE ? Accession #: ? [id number] ? : ? 1955 (Age: 51) ??F [...] covered by a smooth white serosa. ??Three associate sales representative sections of the gallbladder are submitted in one cassette. ??(Sriram Elias/[facility] End of Report [facility] 06/29/2007 06/29/2007 21: 23 EST Sánchez Acevedo MD PATHOLOGY ORDERABLE [facility] [address] [place] [address] documented in this encounter Visit Diagnoses Not on filedocumented in this encounter
--- OUTSIDE RECORDS SUMMARY | 2024-04-18 14:34 | XMS_ITS | Encounter Summary ---
Author Organization [facility] Address [facility] [place] [address] Care Team Providers Care Manager Of Sustainability Name Role Phone Magdalena Acosta MD Primary Care Provider [phone] Encounter Details Date Type Department Care Team (Late st Contact Info) Description 07/29/2023 11:00 AM EST Office [place] [address] Magdalena Peralta MD [facility] [place] [address] Mixed connective tissue disease Social History Tobacco [...] 1:5120 speckled; VIC negative; Myositis panel with FUR CLIPPER ab 149.1 (positive); Anti U1RNP IgG 119; [...] Viramontes. Magdalena Peralta MD Rheumatology Fellow Pager: [phone] * Kai Viramontes DO - 07/29/2023 11:00 AM EST ATTENDING ADDENDUM The patient's history was reviewed, and I interviewed and examined the patient with Dr. Peratla I agree with her summary, findings, and plan. documented in this encounter Plan of Treatment Upcoming Encounters Date Type Department Care Team (Late st Contact Info) Description 05/12/2024 9:00 AM EDT Appointment Hematology [place] [address] 05/12/2024 10:00 AM EDT Office Visit Hematology [place] [address] Markel Borjas MD [facility] [address] [place] [address] 03/01/2025 4:15 PM EDT Office Visit Dermatology at [place] [address] [facility] [place] [address] Marek Bonilla MD [address], [place] [address] documented as of this encounter Results * [...] PFT FEV1/FVC Pre-BD Z-Score 0 COMPAS PFT NMP03-42 Actual Pre-BD 2.41 % COMPAS PFT MLT97-22 Predicted 1.8 % COMPAS PFT OBW83-98 Pre-BD % of Predicted 134 % COMPAS PFT MVS31-55 Pre-BD Z-Score 0.81 COMPAS PFT DLCO Hb [...] in this encounter Care Teams Manager Of Sustainability Relationship Specialty Start Date End Date Magdalena Acosta MD [address] [place] [address] PCP - General Family Medicine 02/05/23 documented as of this encounter
--- OUTSIDE RECORDS SUMMARY | 2024-04-18 14:34 | XMS_ITS | Encounter Summary ---
Author Organization [facility] [place] [address] Care Team Providers Care Educational Therapist Name Role Phone Magdalena Acosta MD Primary Care Provider [phone] Encounter Details Date Type Department Care Team (Late st Contact Info) Description 05/27/2023 Refill Cardiology at [address] [phone] Vero Marrero, RN Social History Tobacco Use [...] PM EDT TC to Nurse Sosa at [facility] to relay response from Jay Maza [...] after that 75mg once daily. Jay Marrero physicians and surgeons Clinic at [facility] [address] * Telephone Encounter - Vero Mrarero RN - 05/27/2023 1:46 PM EDT VM received from triage nurse Sosa at [facility] stating patient was seen today by [...] possible. Vero Marrero RN Cardiology Clinic at [facility] [address] documented in this encounter Plan of Treatment Upcoming Encounters Date Type Department Care Team (Late st Contact Info) Description 05/12/2024 9:00 AM EDT Appointment [place] [address] 05/12/2024 10:00 AM EDT Office Visit [place] [address] Markel Borjas MD [facility] [place] [address] 03/01/2025 4:15 PM EDT Office Visit Dermatology at [address] [address] Marek Bonilla MD [address] [place] [address] documented as of this encounter Visit Diagnoses Diagnosis Aortic valve stenosis, etiology of cardiac valve disease unspecified documented in this encounter Care Teams Educational Therapist Relationship Specialty Start Date End Date Magdalena Acosta MD [address] [place] [address] PCP - General Family Medicine 02/05/23 documented as of this encounter
--- OUTSIDE RECORDS SUMMARY | 2024-04-18 14:34 | XMS_ITS | Encounter Summary ---
Author Organization [facility] [place] [address] Care Team Providers Care Stake Setter Name Role Phone Magdalena Acosta MD Primary Care Provider [phone] Reason for Visit * Reason Comments Aortic Stenosis Coronary Artery Disease Hypertension Encounter Details Date Type Department Care Team (Latest Contact Info) Description 11/16/2023 11:40 AM EDT TH Visit (TeleHealth) Cardiology at [address] [address] Jay Maza PA [facility] [place] [address] Aortic valve stenosis, etiology of cardiac valve disease unspecified; Coronary artery disease, unspecified vessel or lesion type, unspecified whether angina present, unspecified whether [place] or transplanted heart Social History Tobacco Use Types Packs/Day Years Used Date Smoking Tobacco: Never Smokeless Tobacco: Never Alcohol Use Standard Drinks/Week Comments No 0 (1 standard drink = 0.6 oz pur e alcohol) none [facility] Inpatient Questions Answer Date Recorded Does [...] note were not included. [facility] Interventional Cardiology CARDIOLOGY TELE VISIT NOTE 11/16/23 Patient: Purnima Thacker Prior to the initiation of our discussion, the risks and benefits of tele health visits were discussed, and the patient consented verbally to this being a virtual telehealth visit in lieu of an in person office visit. CARDIOLOGISTS: Antelmo Sharma MD ([facility]) Maria Luz Mejia MD ([facility] - [facility]) Problem List: Aortic valve stenosis: prior [...] I35.0 Mild coronary artery disease by [facility] 11/09/2022 I25.10 Heart failure with reduced ejection [...] notable for coronary artery protection given low grozf-gt-ykmwfmdw distance. There was no obstruction post Valve [...] had a very reassuring recent echo in [facility], in scanned docs. LVEF 55%. Valve [...] leads Confirmed by MD Harshil, Haris Bell ([id number]) on 05/10/2023 8:11:46 AM Cardiac Cath 11/09/2022 [...] in one year. EKATERINA Thompson Time spent: [id number] 0-5min 4989ZWK2 6-10min 4923SOW9 11-15min x 1980USN2 16-20min 8878SOB3 21-30min 6790YYK7 31-40min 2605THQ4 40+ min Jay Maza PA-C Interventional Cardiology [facility] Pager [phone] documented in this encounter Plan of Treatment Upcoming Encounters Date Type Department Care Team (Late st Contact Info) Description 05/12/2024 9:00 AM EDT Appointment Hematology [place] [address] 05/12/2024 10:00 AM EDT Office Visit Hematology [place] [address] Markel Borjas MD [facility] [address] [place] [address] 03/01/2025 4:15 PM EDT Office Visit Dermatology at [place] [address] [place] [address] Marek Bonilla MD [address], [place] [address] documented as of this encounter Visit Diagnoses Diagnosis Aortic valve stenosis, etiology of cardiac valve disease unspecified Coronary artery disease, unspecified vessel or lesion type, unspecified whether angina present, unspecified whether [place] or transplanted heart documented in this encounter Care Teams Stake Setter Relationship Specialty Start Date End Date Magdalena Acosta MD [address] [place] [address] PCP - General Family Medicine 02/05/23 documented as of this encounter
--- OUTSIDE RECORDS SUMMARY | 2024-04-18 14:34 | XMS_ITS | Encounter Summary ---
Author Organization [facility] [place] [address] Care Team Providers Care Missileman Name Role Phone Magdalena Acosta MD Primary Care Provider [phone] Encounter Details Date Type Department Care Team (Late st Contact Info) Description 12/02/2023 11:15 AM EDT Office [place] [address] Magdalena Peralta MD [facility] [place] [address] Mixed connective tissue disease Social History Tobacco [...] 1:5120 speckled; VIC negative; Myositis panel with VISUAL BASIC DEVELOPER ab 149.1 (positive); Anti U1RNP IgG 119; [...] list of questions that she sent via [facility] ahead of her visit, which we [...] exposure. She has an appointment with her Territory Account Executive scheduled in January. (Dr Bonilla in [place]) ROS (positives in bold): Gen: no fevers, [...] but I encouraged her to contact her Territory Account Executive to see if she could have her [...] Dr. Tanisha Peralta MD Rheumatology Fellow Pager: [phone] * Federico Yee MD - 12/02/2023 11:15 [...] MD - 12/02/2023 11:15 AM EDTAddended by: FEDEIRCO YEE on: 12/03/2023 02:13 PM Modules accepted: Level of Service documented in this encounter Plan of Treatment Upcoming Encounters Date Type Department Care Team (Late st Contact Info) Description 05/12/2024 9:00 AM EDT Appointment Hematology [place] [address] 05/12/2024 10:00 AM EDT Office Visit Hematology [place] [address] Markel Borjas MD [facility] [address] [place] [address] 03/01/2025 4:15 PM EDT Office Visit Dermatology at [address] [phone] Marek Bonilla MD [address] [place] [address], [facility] [place] [address] Scheduled Orders Name Type Priority Associated Diagnoses Orde r Schedule EKG 12 Lead ECG Routine Mixed connective tissue disease Expected: 12/02/2023, Expires: 06/03/2024 documented as of this encounter Visit Diagnoses Diagnosis Mixed connective tissue disease Other specified diffuse disease of connective tissue documented in this encounter Care Teams Missileman Relationship Specialty Start Date End Date Magdalena Acosta MD [address] [place] [address] PCP - General Family Medicine 02/05/23 documented as of this encounter
--- OUTSIDE RECORDS SUMMARY | 2024-04-18 14:34 | XMS_ITS | Encounter Summary ---
[facility] [place] [address] Care Team Providers Care Boring Mill Operator For Metal Name Role Phone Magdalena Acosta MD Primary Care Provider [phone] Encounter Details Date Type Department Care Team [...] AM EDT Appointment Hematology [place] [address] 05/12/2024 10:00 AM EDT Office Visit Hematology [place] [address] Markel Borjas MD [facility] [address] [place] [address] 03/01/2025 4:15 PM EDT Office Visit Dermatology at [place] [address] [place] [address] Marek Bonilla MD [address] [place] [address] documented as of this encounter Visit Diagnoses Not on filedocumented in this encounter Care Teams Boring Mill Operator For Metal Relationship Specialty Start Date End Date Magdalena Acosta MD [address] [place] [address] PCP - General Family Medicine 02/05/23 documented as of this encounter
--- OUTSIDE RECORDS SUMMARY | 2024-04-18 14:34 | XMS_ITS | Encounter Summary ---
[place] [address] Care Team Providers Care Acquisition Analyst Name Role Phone Magdalena Acosta MD Primary Care Provider [phone] Reason for Visit * Reason Onset Date Comments Pre Procedure Call 03/01/2024 DAPT hold for EGD and colo? Encounter Details Date Type Department Care Team (Late st Contact Info) Description 03/01/2024 Telephone Cardiology at [address] [phone] Cynthia Monsalve RN Pre Procedure Call (DAPT hold for EGD and colo?) Social History Tobacco Use Types Packs/Day Years Used Date Smoking Tobacco: Never Smokeless Tobacco: Never Alcohol Use Standard Drinks/Week Comments No 0 (1 standard drink = 0.6 oz pur e alcohol) none REPLACED BY [facility] Inpatient Questions Answer Date Recorded Does Anyone [...] safe. Jay Message above left with Yenifer (coal yard supervisor), who would be leaving this note in patient's chart for providers to schedule patient. No further questions or needs at this time. This nurse stated, note will be placed regarding this call in our chart for patient. Kezia Whitney RN, BSN Ambulatory Cardiology Clinic, [facility] [phone] * Telephone Encounter - Cynthia Monsalve RN - 03/01/2024 2:09 PM EDT Nurse Veronica from [facility] called, requesting a hold on ASA and/or Plavix for the patient's anticipated EGD and colonoscopy. -Cynthia Monsalve RN documented in this encounter Plan of Treatment Upcoming Encounters Date Type Department Care Team (Late st Contact Info) Description 05/12/2024 9:00 AM EDT Appointment H[place] [address] 05/12/2024 10:00 AM EDT Office Visit Hematology [place] [address] Markel Borjas MD [facility] [address] [place] [address] 03/01/2025 4:15 PM EDT Office Visit Dermatology at [place] [address] [place] [address] Marek Bonilla MD [address] [place] [address] documented as of this encounter Visit Diagnoses Not on filedocumented in this encounter Care Teams Acquisition Analyst Relationship Specialty Start Date End Date Magdalena Acosta MD [address] [place] [address] PCP - General Family Medicine 02/05/23 documented as of this encounter
--- OUTSIDE RECORDS SUMMARY | 2024-04-18 14:34 | XMS_ITS | Encounter Summary ---
[place] [address] Care Team Providers Care Automatic Driller And Reamer Name Role Phone Magdalena Acosta MD Primary Care Provider [phone] Encounter Details Date Type Department Care Team (Latest Contact Info) Description 07/08/2023 12:35 PM EST Laboratory Appointment Lab [address] [place] [address] S/P TAVR (transcatheter aortic valve replacement); Severe aortic stenosis Social History Tobacco Use Types Packs/Day Years Used Date Smoking Tobacco: Never Smokeless Tobacco: Never Alcohol Use Standard Drinks/Week Comments No 0 (1 standard drink = 0.6 oz pur e alcohol) none [facility] Inpatient Questions Answer Date Recorded Does Anyone Try to Keep You From Having Contact with Others or Doing Things Outside Your Home? no 05/08/2023 Feels Threatened by Someone no 100 01/2023 Feels Unsafe at Home or Work/School [...] AM EDT Appointment Hematology [place] [phone] 05/12/2024 10:00 AM EDT Office Visit [place]ematology [place] [address] Markel Borjas MD [facility] [address] HEMATOLOGY [place] [address] 03/01/2025 4:15 PM EDT Office Visit Dermatology at [place] [address] [place] [phone] Marek Bonilla MD [address] [place] [address] documented as of this encounter Procedures Procedure [...] AM EST) Neutrophil % 73.2 % [facility] Neutrophil Absolute 3.40 1.70 - 6.10 x10(3)/mc L [facility] Lymph % 16.1 % [facility] Lymphocytes Abs 0.8(L) 0.9 - 3.2 x10(3)/mc L [facility] Monocyte % 9.7 % [facility] ITAL [facility] Monocyte Abs 0.4 0.3 - 0.9 x10(3)/mc L [facility] Eos % 0.4 % [facility] Eosinophils Abs 0.0 0.0 - 0.4 x10(3)/mc L [facility] Basophil % 0.4 % [facility] ITAL LABOR[facility] Baso Absolute 0.0 0.0 - 0.1 x10(3)/ L [facility] Immature Gran % 0.20 % [facility] Comment: Immature granulocytes(IG's)percentage and absolute count will include metamyelocytes, myelocytes, and promyelocytes. Blood smears from CBCs yielding IG's will be scanned manually for concordance. If this scan disagrees with the automated IG or if promyelocytes are noted, a manual differential will be performed. Immature Gran Absolute 0.01 0.00 - 0.04 x10(3)/ L [facility] Blood 07/08/2023 11:5 6 AM EST 07/08/2023 12:02 PM EST Narrative Resulting Agency Comment Spec In Lab Minh TOBAR HEMATOLOGY ORDERABLE S [facility] [place] [address] * (ABNORMAL) Hemogram (07/08/2023 11:56 AM EST) White Blood Cell 4.6 4.0 - 9.5 x10(3)/[facility] LABORATORY Red Blood Cell 3.34(L) 4.00 - 5.21 x10(6)/[facility]AT[facility] Hemoglobin 11.0(L) 11.7 - 15.5 g/dL [facility] Hematocrit 33.2(L) 35.7 - 45.8 % [facility] Mean Cell Volume 99.4(H) 82.6 - 94.4 fL [facility] Mean Cell Hemoglobin 32.9(H) 27.1 - 32.0 pg [facility] Mean Cell Hemoglobin Concentration 33.1 31.7 - 35.0 g/dL [facility] Platelet 166 145 - 357 x10(3)/[facility] LABORATORY RDW Standard Deviation 47.1(H) 37.0 - 46.0 fL [facility] RDW coefficient of variation 13.0 11.5 - 14.1 % [facility] Mean Platelet Volume 9.0 7.6 - 12.9 fL [facility] NRBC% auto 0.0 % [facility] ITAL LABORATORY NRBC Absolute 0.000 0.000 - 0.000 x10(3)/ L [facility] Blood 07/08/2023 11:5 6 AM EST 07/08/2023 12:02 PM EST Narrative Resulting Agency Comment Spec In Lab Minh TOBAR HEMATOLOGY ORDERABLE S [facility] [place] [address] * (ABNORMAL) Comprehensive metabolic panel (non-fasting) (07/08/2023 11:56 AM EST) Glucose 93 65 - 199 mg/dL [facility] Comment:Diabetes: >=200 mg/d L plus symptoms Blood Urea Nitrogen 19(H) 8 - 18 mg/dL [facility] Creatinine 0.81 0.70 - 1.20 mg/dL [facility] Sodium 142 135 - 145 mmol/L [facility] Potassium 3.8 3.5 - 5.0 mmol/L [facility] Comment: Please note: ??Patients with WBC >100,000 may have falsely elevated Potassium levels. ??For accurate Potassium quantification in these patients send serum separator tube (gold top) for subsequent determinations. ??Contact the Clinical Chemistry Laboratory if there are any questions. Chloride 104 98 - 107 mmol/L [facility] Carbon Dioxide 26 22 - 31 mmol/L [facility] Anion Gap 12 5 - 15 mmol/L [facility] Calcium 10.2 8.5 - 10.5 mg/dL [facility] Protein, Total 7.4 6.1 - 8.0 g/dL [facility] Albumin 4.1 3.2 - 5.2 g/dL [facility] Aspartate Aminotransferase 24 0 - 30 unit/L [facility] Alanine Aminotransferase 12 0 - 30 unit/L [facility] Alkaline Phosphatase 93 35 - 105 unit/L [facility] Bilirubin, Total 0.3 0.2 - 1.3 mg/dL [facility] Est Glomerular Filtration Rate 80 >=60 mL/min/1. 73 m?? [facility] Comment: This patient's estimated GFR was [...] Lab Alirio Esparza MD [place] [address] documented in this encounter Visit Diagnoses Diagnosis S/P TAVR (transcatheter aortic valve replacement) Severe aortic stenosis Aortic valve disorders documented in this encounter Care Teams Automatic Driller And Reamer Relationship Specialty Start Date End Date Magdalena Acosta MD [address] [place] [address] PCP - General Family Medicine 02/05/23 documented as of this encounter
--- OUTSIDE RECORDS SUMMARY | 2024-04-18 14:34 | XMS_ITS | Clinical Summary ---
Author Organization [facility] Address [facility] [place] [address] Care Team Providers Care Customs Compliance Director Name Role Phone Magdalena Acosta MD Primary Care Provider [phone] Allergies No known active allergies Medications Medication [...] Description 04/11/2024 Transcribe Orders eDH Incoming Referrals [phone] Consuelo Guerrero, DO Anemia, unspecified type 03/01/2024 Telephone Cardiology at [address] [address] Cynthia Monsalve RN Pre Procedure Call (DAPT hold for EGD and colo?) 02/22/2024 4:15 PM EDT Office Visit Dermatology at [address] [place] [address] Marek Bonilla MD Seborrheic keratosis; Rosacea; Nevus [...] AM EDT Appointment Hematology [place] [address] 05/12/2024 10:00 AM EDT Office Visit Hematology [place] [address] Markel Borjas MD [facility] [address] HEMATOLOGY [place] [address] 03/01/2025 4:15 PM EDT Office Visit Dermatology at [place] [address] [place] [address] Marek Bonilla MD [address] [place] [address] Health Maintenance Due Date Last Done Comments [...] 06/05/2036 06/05/2021 Medical Devices Implanted Type Area Human Services Program Specialist Device Identifier Shelf Expiration Date Model / Serial / Lot Valve,Aor,Pericar d,Magna,25mm ([id number]) - [id number] Implanted:Qty: 1 on 09/21/2016 by Alirio Esparza MD at [facility] IMPLANTS N/A: Heart DO NOT USE [employer] - [id number] 06/02/2020 [id number] / / [id number] Cable,Blnt,Ss,38i n ([id number]) - [id number] Implanted:Qty: 4 on 09/21/2016 by Alirio Esparza MD at [facility] IMPLANTS N/A: Chest [employer] - [id number] 04/29/2021 [id number] / / [id number] Patch,Cav,Pericar d,2x5cm ([id number]) ([employer]ore[employer]) - [id number] Implanted:Qty: 1 on 09/21/2016 by Alirio Esparza MD at [facility] IMPLANTS N/A: Heart DO NOT USE [employer] - [id number] 04/21/2018 [id number] / / [id number] Tavr-05/12/2023 Implanted:Qty: 1 on 05/12/2023 by Antelmo Sharma MD Other Heart [employer] - JAIME LI [id number] / [id number] / Description:JAIME LIFESCIE NCES ABBY 3 ULTRA [...] Glucose 93 65 - 199 mg/dL [facility] Comment:Diabetes: >=200 mg/d L plus symptoms Blood Urea Nitrogen 19(H) 8 - 18 mg/dL [facility] Creatinine 0.81 0.70 - 1.20 mg/dL [facility] Sodium 142 135 - 145 mmol/L [facility] Potassium 3.8 3.5 - 5.0 mmol/L [facility] Comment: Please note: ??Patients with WBC >100,000 may have falsely elevated Potassium levels. ??For accurate Potassium quantification in these patients send serum separator tube (gold top) for subsequent determinations. ??Contact the Clinical Chemistry Laboratory if there are any questions. Chloride 104 98 - 107 mmol/L [facility] Carbon Dioxide 26 22 - 31 mmol/L [facility] Anion Gap 12 5 - 15 mmol/L [facility] Calcium 10.2 8.5 - 10.5 mg/dL [facility] Protein, Total 7.4 6.1 - 8.0 g/dL [facility] Albumin 4.1 3.2 - 5.2 g/dL [facility] Aspartate Aminotransferase 24 0 - 30 unit/L [facility] Alanine Aminotransferase 12 0 - 30 unit/L [facility] Alkaline Phosphatase 93 35 - 105 unit/L [facility] Bilirubin, Total 0.3 0.2 - 1.3 mg/dL [facility] Est Glomerular Filtration Rate 80 >=60 mL/min/1. 73 m?? [facility] Comment: This patient's estimated GFR [...] Alirio Esparza MD CHEMISTRY ORDERABLE S [facility] [address] * DXA Central Spine, Hip, and/or Whole Body (Generic) (06/05/2021 11:58 AM EDT) PT CLASS O RAD ADMITDTTM RAD PT RAD INFO [id number]^E VERETT^DEBORAH ^E RAD EXAM DESC XDXAC^DEXA SCAN [...] who have questions please contact the health medical care evaluation specialist that requested your imaging first. ? Electronically signed by: Rocael Villatoro MD, [facility] ([phone]), at 06/05/2021 12:00 PM Narrative 06/05/2021 12:00 PM EDT EXAMINATION: DEXA SCAN AXIAL CLINICAL HISTORY: Screening for osteoporosis postmenopausal. TECHNIQUE: Scans were acquired at the lumbar spine, left hip. COMPARISON: None. FINDINGS: Lowest T score at a diagnostic region of interest: T score: -0.6, ALYSA:Femoral neck, WHO diagnosis: Normal Procedure Note Rcoael Villatoro MD - 06/05/2021 EXAMINATION: DEXA SCAN [...] patients who have questions please contactthe health medical care evaluation specialist that requested your imaging first. Electronically signed by: Rocael Villatoro MD, [facility]([phone]), at 06/05/2021 12:00 PM Deborah Quiroga COUNTRY MANAGER IMG DEXA ORDERABLES * Mammo Screening Cad Bilateral (06/05/2021 11:42 AM EDT) PT CLASS O RAD ADMITDTTM RAD PT RAD INFO [id number]^EV ERETT^DEBORAH^E RAD EXAM DESC MADDSC^SCREEN MAMMO BL [...] who have questions please contact the health medical care evaluation specialist that requested your imaging first. ? Electronically signed by: Rocael Villatoro MD, [facility] ([phone]), at 06/05/2021 1:27 PM Narrative 06/05/2021 1:27 [...] patients who have questions please contactthe health medical care evaluation specialist that requested your imaging first. Electronically signed by: Rocael Villatoro MD, [facility]([phone]), at 06/05/2021 1:27 PM Deborah Quiroga APRN [...] capacity to make decision: Yes Care Teams Customs Compliance Director Relationship Specialty Start Date End Date Magdalena Acosta MD [address] [place] [id number] PCP - General Family Medicine 02/05/23
--- OUTSIDE RECORDS SUMMARY | 2024-04-18 14:34 | XMS_ITS | Encounter Summary ---
Author [place] [address] Care Team Providers Care Claim Investigator Name Role Phone Magdalena Acosta MD Primary Care Provider [phone] Reason for Visit * Reason Comments Annual Exam Encounter Details Date Type Department Care Team (Late st Contact Info) Description 02/22/2024 4:15 PM EDT Office Visit Dermatology at [address] [phone] Marek Bonilla MD [address] [facility] [facility] A DERMATOLOGY [place], [place] [id number] Seborrheic keratosis; Rosacea; Nevus Social History Tobacco [...] cutaneous and ocular 3. Previously told by fee clerk that she had corneal tears from [...] a year for repeat check. CC: Deborah Qiuroga APRN documented in this encounter Plan of Treatment Upcoming Encounters Date Type Department Care Team (Late st Contact Info) Description 05/12/2024 9:00 AM EDT Appointment [place] [address] 05/12/2024 10:00 AM EDT Office Visit [place]ology [place] [address] Markel Borjas MD [facility] [address] [place] [address] 03/01/2025 4:15 PM EDT Office Visit Dermatology at [place] [address] [place] [phone] Marek Bonilla MD [address] [facility] [place] [address] documented as of this encounter Visit Diagnoses Diagnosis Seborrheic keratosis Other seborrheic keratosis Rosacea Nevus Benign neoplasm of skin, site unspecified documented in this encounter Care Teams Claim Investigator Relationship Specialty Start Date End Date Magdalena Acosta MD [address] [place] [address] PCP - General Family Medicine 02/05/23 documented as of this encounter
--- OUTSIDE RECORDS SUMMARY | 2024-04-18 14:34 | XMS_ITS | Encounter Summary ---
Author Organization [facility] Address [address] [place] [address] Care Team Providers Care Mortgage Lender Name Role Phone Unavailable Primary Care Provider Unavailabl e Encounter Details Date Type Department Care Team (Late st Contact Info) Description 07/08/2010 Results Only [facility] Non-Invasive Cardiology - [facility] [address] [place] [address] Ashley Chavez, WILLIAM [address] [place] [address] Social History Tobacco Use Types Packs/Day Years [...] ? 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 Accession #: ? [id number] ? : ? 1955 (Age: 54) ??F [...] Ashley THOMAS PATHOLOGY ORDERABLES PAUL ARELLANO [address] [place] [address] documented in this encounter Visit Diagnoses Not on filedocumented in this encounter
--- OUTSIDE RECORDS SUMMARY | 2024-04-18 14:34 | XMS_ITS | Encounter Summary ---
Author Organization [facility] [place] [address] Care Team Providers Care Car Dryer Name Role Phone Magdalena Acosta MD Primary Care Provider [phone] Encounter Details Date Type Department Care Team [...] AM EDT Appointment Hematology [place] [address] 05/12/2024 10:00 AM EDT Office Visit Hematology [place] [address] Markel Borjas MD [facility] [address] HEMATOLOGY [place] [address] 03/01/2025 4:15 PM EDT Office Visit Dermatology at [place] [address] [place] [address] Marek Bonilla MD [address], [place] [address] documented as of this encounter Visit Diagnoses Not on filedocumented in this encounter Care Teams Car Dryer Relationship Specialty Start Date End Date Magdalena Acosta MD [address] [place] [address] PCP - General Family Medicine 02/05/23 documented as of this encounter
--- OUTSIDE RECORDS SUMMARY | 2024-04-18 14:34 | XMS_ITS | Encounter Summary ---
Author Organization [facility] Address [address] [place] [address] Care Team Providers Care Director Design Name Role Phone Unavailable Primary Care Provider Unavailabl e Encounter Details Date Type Department Care Team (Late st Contact Info) Description 04/20/2005 Results Only [facility] - Maple conversion [address] [place] [address] Ziggy Valiente MD [address] [place] [id number] Social History Tobacco Use Types Packs/Day Years [...] ? 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 Accession #: ? [id number] ? : ? 1955 (Age: 49) ??F [...] correlation with endoscopic appearance is recommended. (Dr. Chino)/[facility] Document reviewed and electronically signed by: TYRON [...] is entirely submitted in one cassette. ??(Arabella Santos)/[facility] End of Report PAUL ARELLANO 04/20/2005 04/21/2005 15: 04 EDT Ziggy Valiente MD PATHOLOGY ORDERABLES PAUL ARELLANO [address] [place] [address] documented in this encounter Visit Diagnoses Not on filedocumented in this encounter
--- OUTSIDE RECORDS SUMMARY | 2024-04-18 14:34 | XMS_ITS | Encounter Summary ---
Author Organization [facility] [place] [address] Care Team Providers Care Cook Room Supervisor Name Role Phone Magdalena Acosta MD Primary Care Provider [phone] Reason for Visit * Reason Comments Coronary Artery Disease Hypertension Aortic Stenosis Encounter Details Date Type Department Care Team (Latest Contact Info) Description 07/20/2023 4:40 PM EST TH Visit (TeleHealth) Cardiology at [address] [address] Jay Maza PA [facility] [place] [address] HFrEF (heart failure with reduced ejection fraction); [...] Maza PA - 07/20/2023 4:40 PM EST [facility] [place] [...] lieu of an in person office visit. Dentofacial Orthopedics Dentist: Antelmo Sharma MD ([facility] [place]) Maria Luz Mejia MD ([facility] cards) Problem List: : prior surgical [...] Mild coronary artery disease by [facility] 11/09/2022 I25.10 Heart failure with reduced ejection [...] notable for coronary artery protection given low [id number]-zm-hjkuydtl distance. There was no obstruction post Valve deployment, but the stent could not be removed safely, so it was deployed. 4.0 mm x 30mm in left main. She was loaded on brilinta aka ticagrelor. Immediately post valve deployment, chest compressions to circulate central epinephrine which was administered given her hypotension, low LVEF, and low cardiac reserve. Next, the patient was transferred to [facility] for pressor and inotropic support. Pressors weaned overnight. Cardiac indices by thermodilution remained greater than 3 with continued Milrinone 0.125 mcg/kg/min. EKG the next day with NSR with stable PA/QRS intervals. Hemoglobin 7.8 today from 8.5, likely [...] arms and wrists. Successful right transfemoral TAVR Gmdkz-au-Ljxwj with a 23 mm Lai 3 THV. [...] leads Confirmed by MD Harshil, Haris Bell ([id number]) on 05/10/2023 8:11:46 AM Cardiac Cath 11/09/2022 [...] in chart review and direct patient contact. [id number] 0-5min [id number] 6-10min [id number] 11-15min [id number] 16-20min x [id number] 21-30min [id number] 31-40min [id number] 40+ min Jay Maza PA-C Interventional Cardiology [facility] Heart and Vascular [facility] Pager [phone] documented in this encounter Plan of Treatment Upcoming Encounters Date Type Department Care Team (Late st Contact Info) Description 05/12/2024 9:00 AM EDT Appointment Hematology [place] [address] 05/12/2024 10:00 AM EDT Office Visit Hematology [place] [address] Markel Borjas MD [facility] [address] HEMATOLOGY [place] [address] 03/01/2025 4:15 PM EDT Office Visit Dermatology at [place] [address] [place] [address] Marek Bonilla MD [address] [place] [address] documented as of this encounter Visit Diagnoses Diagnosis HFrEF (heart failure with reduced ejection fraction) Hypertension, unspecified type Aortic valve stenosis, etiology of cardiac valve disease unspecified documented in this encounter Care Teams Cook Room Supervisor Relationship Specialty Start Date End Date Magdalena Acosta MD [address] [place] [address] PCP - General Family Medicine 02/05/23 documented as of this encounter
--- OUTSIDE RECORDS SUMMARY | 2024-04-18 14:34 | XMS_ITS | Encounter Summary ---
Author Organization [facility] [place] [address] Care Team Providers Care Marshmallow Maker Name Role Phone Magdalean Acosta MD Primary Care Provider [phone] Encounter Details Date Type Department Care Team [...] AM EDT Appointment Hematology [place] [address] 05/12/2024 10:00 AM EDT Office Visit Hematology [place] [address] Markel Borjas MD [facility] [address] [place] [address] 03/01/2025 4:15 PM EDT Office Visit Dermatology at [place] [address] [place] [phone] Marek Bonilla MD [address], [place] [address] documented as of this encounter Visit Diagnoses Not on filedocumented in this encounter Care Teams Marshmallow Maker Relationship Specialty Start Date End Date Magdalena Acosta MD [address] [place] [address] PCP - General Family Medicine 02/05/23 documented as of this encounter
--- OUTSIDE RECORDS SUMMARY | 2024-04-18 14:34 | XMS_ITS | Encounter Summary ---
[place] [address] Care Team Providers Care Clinical Services Specialist Name Role Phone Magdalena Acosta MD Primary Care Provider [phone] Reason for Referral * Consultation (Routine) - Authorized Specialty Diagnoses / Procedures Referred By Contac t Referred To Contact Hematology and Oncology Diagnoses Anemia, unspecified type Consuelo Guerrero DO [address] [place] [address] [address] [place] [address] [facility] [address] [place] [address] Referral ID Status Reason Start Date Expiration Date Visits Requested Visits Authorized [id number] Authorized Consult, Test & Treat 04/11/2024 04/11/2025 1 1 Encounter Details Date Type Department Care Team (Late st Contact Info) Description 04/11/2024 Transcribe Orders eDH Incoming Referrals [phone] Consuelo Guerrero DO [address] [place] [address] [address] [place] [address] Anemia, unspecified type Social History [...] AM EDT Appointment Hematology [place] [address] 05/12/2024 10:00 AM EDT Office Visit Hematology [place] [address] [facility] [address] [place] [address] 03/01/2025 4:15 PM EDT Office Visit Dermatology at [address] [address] Marek Bonilla MD [address] [facility] [place] [address] Scheduled Referrals Name Type Priority Associated Diagnoses Orde r Schedule Referral to Hematology and Oncology Outpatient Referral Routine Anemia, unspecified type Ordered: 04/11/2024 documented as of this encounter Visit Diagnoses Diagnosis Anemia, unspecified type documented in this encounter Care Teams Clinical Services Specialist Relationship Specialty Start Date End Date Magdalena Acsota MD [address] [place] [address] PCP - General Family Medicine 02/05/23 documented as of this encounter
--- OUTSIDE RECORDS SUMMARY | 2024-04-18 14:34 | XMS_ITS | Encounter Summary ---
Author Organization [facility] Address [address] [place] [address] Care Team Providers Care Residential Leasing Agent Name Role Phone Unavailable Primary Care Provider Unavailabl e Encounter Details Date Type Department Care Team (Late st Contact Info) Description 07/08/2010 10:55 EST - 07/08/2010 10:56 EST Hospital Encounter [facility] - Other [address] [place] [address] Ashley Chavez, WILLIAM [address] [place] [id number] Discharge Disposition: Home or Self Care Social [...]
--- OUTSIDE RECORDS SUMMARY | 2024-04-18 14:34 | XMS_ITS | Encounter Summary ---
Author Organization [facility] [place] [address] Care Team Providers Care Casualty Claim Adjuster Name Role Phone Magdalena Acosta MD Primary Care Provider [phone] Encounter Details Date Type Department Care Team [...] AM EDT Appointment Hematology [place] [address] 05/12/2024 10:00 AM EDT Office Visit Hematology [place] [phone] Markel Borjas MD [facility] [address] [place] [address] 03/01/2025 4:15 PM EDT Office Visit Dermatology at [place] [address] [place] [phone] Marek Bonilla MD [address], [address] [facility] [place] [address] documented as of this encounter Visit Diagnoses Not on filedocumented in this encounter Care Teams Casualty Claim Adjuster Relationship Specialty Start Date End Date Magdalena Acosta MD [address] [place] [address] PCP - General Family Medicine 02/05/23 documented as of this encounter
--- OUTSIDE RECORDS SUMMARY | 2024-04-18 14:34 | XMS_ITS | Encounter Summary ---
Author Organization [facility] Address [address] [place] [address] Care Team Providers Care Insurance Customer Service Specialist Name Role Phone Unavailable Primary Care Provider Unavailabl e Encounter Details Date Type Department Care Team (Late st Contact Info) Description 03/24/2007 Results Only [facility] Non-Invasive Cardiology - [facility] [address], [place] [id number] Ashley Chavez ARNP [address] [place] [address] Social History Tobacco Use Types Packs/Day Years [...] ? 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 Accession #: ? [id number] : ? 1955 (Age: 51) ??F ?Collect Date: ? 03/24/2007 Location: ? [facility] ? Receive Date: ? 03/28/2007 Provider: ?ASHLEY THOMAS Copy to: ? Specimen/Source: ?ThinPrep Pap Test, [employer], processed on [employer] ThinPrep Imaging System, with manual evaluation [...] Ashley THOMAS PATHOLOGY ORDERABLES PAUL ARELLANO [address] [place] [address] documented in this encounter Visit Diagnoses Not on filedocumented in this encounter
--- OUTSIDE RECORDS SUMMARY | 2024-04-18 14:34 | XMS_ITS | Encounter Summary ---
Author Organization [facility] Address [address] [place] [address] Care Team Providers Care Technical Services Specialist Name Role Phone Unavailable Primary Care Provider Unavailabl e Encounter Details Date Type Department Care Team (Late st Contact Info) Description 03/24/2007 11:06 EDT - 03/24/2007 11:59 EDT Hospital Encounter [facility] - Other [address] [place] [address] Ashley Chavez ARNP [address] [place] [address] Discharge Disposition: Home or Self Care Social [...]
--- OUTSIDE RECORDS SUMMARY | 2024-04-18 14:35 | XMS_ITS | Encounter Summary ---
Author Organization [facility] [place] [address] Care Team Providers Care Old Coin Dealer Name Role Phone Magdalena Acosta MD Primary Care Provider [phone] Encounter Details Date Type Department Care Team [...] AM EDT Appointment Hematology [place] [address] 05/12/2024 10:00 AM EDT Office Visit [place]ology [place] [address] Markel Borjas MD [facility] [address] [place] [address] 03/01/2025 4:15 PM EDT Office Visit Dermatology at [place] [address] [place] [phone] Marek Bonilla MD [address], [address] [place] [address] documented as of this encounter Visit Diagnoses Not on filedocumented in this encounter Care Teams Old Coin Dealer Relationship Specialty Start Date End Date Magdalena Acosta MD [address] [place] [address] PCP - General Family Medicine 02/05/23 documented as of this encounter
--- OUTSIDE RECORDS SUMMARY | 2024-04-18 14:35 | XMS_ITS | Encounter Summary ---
Author Organization [facility] Address [facility] [place] [address] Care Team Providers Care Water Pump Operator Name Role Phone Magdalena Acosta MD Primary Care Provider [phone] Reason for Referral * Diagnostic Test (Routine) - Closed Specialty Diagnoses / Procedures Referred By Contac t Referred To Contact Cardiology Diagnoses S/P TAVR (transcatheter aortic valve replacement) Procedures Echocardiogram Transthoracic Vinod Juárez PA [facility] [place] [address] [facility] [place] [address] Referral ID Status Reason Start Date Expiration Date V isits Requested Visits Authorized [id number] Closed Specialty Service Requested 05/22/2023 05/21/2024 1 1 * Home Health Care (Routine) - Closed Specialty Diagnoses / Procedures Referred By Contac t Referred To Contact Diagnoses S/P TAVR (transcatheter aortic valve replacement) Alirio Hudson MD [facility] CARDIOTHORACIC SURGERY [address] [facility] & [address] [place] [address] Referral ID Status Reason Start Date Expiration Date V isits Requested Visits Authorized [id number] Closed Consult, Test & Treat 05/22/2023 11/18/2023 999 999 * Consultation (Routine) - Closed Specialty Diagnoses / Procedures Referred By Crispin maxwell Referred To Contact Cardiology Diagnoses S/P TAVR (transcatheter aortic valve replacement) Alirio Hudson MD [facility] [place] [address] Cardiac Rehab, [address] [place] [address] Referral ID Status Reason Start Date Expiration Date V isits Requested Visits Authorized [id number] Closed Consult, Test & Treat 05/22/2023 11/18/2023 36 36 * Diagnostic Test (Routine) - Closed Specialty Diagnoses / Procedures Referred By Crispin maxwell Referred To Contact Cardiology Diagnoses Aortic valve stenosis, etiology of cardiac valve disease unspecified Procedures Echocardiogram Transthoracic Transesophageal Echocardiogram (YUSRA) Radha Hollins MD [facility] [place] [address] [facility] [place] [address] Referral ID Status Reason Start Date Expiration Date V isits Requested Visits Authorized [id number] Closed Specialty Service Requested 05/11/2023 05/10/2024 1 1 Reason for Visit * Auth/Cert (Routine) Specialty Diagnoses / Procedures Referred By Crispin maxwell Referred To Contact Diagnoses Symptomatic severe aortic stenosis with low ejection fraction NSTEMI, CHF Enrique Chua MD [facility] [place] [address] [facility] Referral ID Status Reason Start Date Expiration Date Visits Re quested Visits Authorized [id number] 1 1 Encounter Details Date Type Department Care Team (Latest Contact Info) Description 05/08/2023 9:14 AM EDT - 05/22/2023 10:46 AM EDT Hospital Encounter Heart and Vascular Unit Level 4 [place] [address] Enrique Chua MD [facility] [place] [address] Juan Luis Gonzalez MD [facility] [place] [address] Radha Hollins MD [facility] [place] [address] Alirio Hudson MD S/P TAVR (transcatheter aortic valve replacement) (Primary Dx); Aortic valve stenosis, etiology of cardiac valve disease unspecified; Symptomatic severe aortic stenosis with low ejection fraction; Heart failure with reduced ejection fraction due to heart valve disease; Mild coronary artery disease by [facility] 11/09/2022; Mixed connective tissue disease; Neck pain; [...] with PCP, Magdalena Acosta MD, or Primary Museum Archivist, Avis Mejia MD, in ~ 7-10 days. Patient to follow up with Workday Consultant, Dr. Antelmo Sharma, in 2 weeks with an EKG, Echo, CBC, and CMP. Patient to follow up with Nephrology, their office to arrange. Kxsx-Mxnrdi-fg interval: After initial 30 day follow-up appointment , all TAVR patients will follow-up again in one year with an echo. 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 Left coronary protection with left main MINNA. Hospital Course: #Severe prosthetic s/p valve in valve TF TAVR #Low coronary heights s/p left main stent for coronary protection #Type 2 NSTEMI, present on arrival, resolved #Acute decompensated HFrEF #Cardiogenic shock #VEANS / Cardiorenal syndrome Purnima Thacker was admitted to [facility] on 05/08/2023 via the Cardiology Service [...] TAVR and she was brought to the crown and bridge dental lab technician the following morning where Drs. [...] if you have questions. Please call your Workday Consultant's office if you have any discharge or drainage from your procedural sites. Your Workday Consultant, Dr. Antelmo Sharma and/or the Aircraft Sales Representative may be reached at . Antibiotic prophylaxis: You will need to take antibiotics prior to many invasive tests and treatments, such as dental cleaning, which should be done every 6 months. Your primary care physician or your dentist can prescribe this medication. Please refer to the card with the [place] [employer] Guidelines for more information. You have been provided with a copy of this card. Please refer to the [place] [employer] Guidelines for more information. Good [...] should resume a low fat, low cholesterol, [place] [employer] Diet Driving: No restrictions. Shower/Bath: You may shower daily. No baths, soaking, or swimming for the first week. Wound care: Wash the sites daily with soap and rinse well, pat dry. Assess for any signs of infection such as increased redness, pain, warmth or drainage. Please call your weight tester's office if you have any discharge or drainage from your procedural sites. If there is a lot of swelling, apply mamta wraps during the day and remove at bedtime. Elevate your legs when you are sitting. Home oxygen therapy: N/A Follow up appointments: Please schedule a follow-up appointment with your PCP, Magdalena Acosta MD, or Primary Museum Archivist in ~ 7-10 days. You have a follow-up appointment with your Workday Consultant, Dr. Antelmo Sharma, in 2 weeks with an EKG, Echo, and labs prior to your appointment. You will need follow-up with Nephrology, their office will arrange. Zgkz-Ysdzbf-th interval: After initial 30 day follow-up appointment , all TAVR patients will follow-up again in one year with an echo. Cardiac Rehabilitation: Purnima Thacker was seen today regarding participation in the outpatient Phase 2 Cardiac Rehabilitation at [facility]. The patient agrees to a referral to this program. The referral will be sent at discharge and the patient should be contacted by the Program within 1- 2 weeks from discharge. Future Appointments and Orders Future Appointments and Orders Future Appointments Provider Department Dept Phone 07/29/2023 11:00 AM Magdalena Peralta MD [place] [facility] [place] at: Onsite [facility] 5[facility] [phone] 02/11/2024 2:00 PM Marek Bonilla MD Dermatology at [place] Arrive at: [facility] [address] [phone] Future Orders Complete By Expires Type and Screen Future Surgery, [facility] SAME DAY PROGRAM ONLY) [OPA4568 Custom] 05/11/2023 Process Instructions: This test is intended ONLY for patients with upcoming surgery for testing prior to the day of surgery obtained through the same day program (4V or SDP). For ALL OTHER PATIENTS, order a Type and Screen (EFW357) This order includes the physician order for an ABO Recheck if requested by the Blood Bank. Scheduling Instructions: Comments: Questions: Date of surgery: CBC (with Diff) [[id number] Custom] 06/05/2023 12/05/2023 Process Instructions: INCLUDES: WBC, RBC, Hgb, Hct, Platelets, RBC Indices and Differential Scheduling Instructions: Comments: Questions: Comprehensive metabolic panel (non-fasting) [LAB17 Custom] 06/05/2023 08/20/2023 Process Instructions: INCLUDES: Calcium, T Protein, Albumin, AST, ALT, Alk Phos, T Bili, BUN, Creat, GFR, Glucose, Lytes. Scheduling Instructions: Comments: Questions: Echocardiogram Transthoracic [17606 CPT(R)] 06/05/2023 12/05/2023 Process Instructions: Scheduling Instructions: Questions: Where will study be performed?: [facility] Does the patient have Congenital Heart Disease?: Does patient require sedation?: GA rationale: EKG 12 Lead [19349 CPT(R)] 06/05/2023 12/05/2023 Process Instructions: Scheduling Instructions: Questions: Which location will this be performed?: [place] Is a rhythm strip needed?: No [employer] Devices [EQ161 Custom] As directed Process Instructions: Scheduling Instructions: Questions: Device Needed: WALKER (E0143) Patient Height (cm): 154.9 cm (5' 0.98) Patient Weight: 75.4 kg (166 lb 3.2 oz) Diagnosis: Unsteady gait when walking Referral to Cardiac Rehab [BDR944 Custom] As directed Process Instructions: If no progress note charted, please enter Clinical details in comments. Scheduling Instructions: Questions: My question or request is: s/p TAVR. Cardiac rehab at [facility]. Referral to Home Health [REF34 Custom] As directed Process Instructions: If no progress note charted, please enter Clinical details in comments. Scheduling Instructions: Comments: DOCUMENTATION FOR VNA SERVICES PATIENT'S LOCATION: Purnima Thacker [address] [place] [phone] (home) Pearl Diver's Name: Self and brother Raymond In discussion with the attending physician, it is certified that this patient is under his/her careand that MD, or an FINANCIAL SUPERVISOR, PRESS OFFBEARER, or PA who is working directly with him/her, had a cebb-xd-nguw encounter that meets the physician cpox-ll-umly encounter requirements with this patient on 05/22/2023. [...] for managing ADLs. HOME HEALTH CARE AGENCY: [facility]. [address] [place] [address] PHONE: [phone] FAX: [phone] Start of care: Ideally 24-48 hours after [...] Magdalena Acosta MD [address] / [facility] [address] All VNA agencies which cover the area of patient's residence have been reviewed, either verbally joao writing, and patient has chosen the home health care agency noted. Questions: Disciplines Requested: Physical Therapy Occupational Therapy Discharge References/Attachments None Arrangements for VNA/home care: As above. (delete if no VNA) Signed: EKATERINA NAVARRETE [facility] Section of Cardiac Surgery Date: 05/22/2023 CC: Magdalena Acosta MD FlatoniaMario Alberto MD [address] [place] [address] documented in this encounter Discharge Instructions * Patient Instructions* Vinod Juárez PA - 05/22/2023 9:32 AM EDT TAVR Discharge Instructions: Call your doctor if: You have a fever of greater than 101 degrees, shaking chills, if you develop redness or drainage from your procedure sites, or if you have questions. Please call your Workday Consultant's office if you have any discharge or drainage from your procedural sites. Your Workday Consultant, Dr. Antelmo Sharma and/or the Aircraft Sales Representative may be reached at . Antibiotic prophylaxis: You will need to take antibiotics prior to many invasive tests and treatments, such as dental cleaning, which should be done every 6 months. Your primary care physician or your dentist can prescribe this medication. Please refer to the card with the [place] [employer] Guidelines for more information. You have been provided with a copy of this card. Please refer to the [place] [employer] Guidelines for more information. Good [...] should resume a low fat, low cholesterol, [place] [employer] Diet Driving: No restrictions. Shower/Bath: You may shower daily. No baths, soaking, or swimming for the first week. Wound care: Wash the sites daily with soap and rinse well, pat dry. Assess for any signs of infection such as increased redness, pain, warmth or drainage. Please call your weight tester's office if you have any discharge or drainage from your procedural sites. If there is a lot of swelling, apply mamta wraps during the day and remove at bedtime. Elevate your legs when you are sitting. Home oxygen therapy: N/A Follow up appointments: Please schedule a follow-up appointment with your PCP, Magdalena Acosta MD, or Primary Museum Archivist in ~ 7-10 days. You have a follow-up appointment with your Workday Consultant, Dr. Antelmo Sharma, in 2 weeks with an EKG, Echo, and labs prior to your appointment. You will need follow-up with Nephrology, their office will arrange. Zhoc-Eziwej-uv interval: After initial 30 day follow-up appointment , all TAVR patients will follow-up again in one year with an echo. Cardiac Rehabilitation: Purnima Thacker was seen today regarding participation in the outpatient Phase 2 Cardiac Rehabilitation at [facility]. The patient agrees to [...] ins ( tef) Haven Ba, PT Pager: [phone] Physical Therapy Inpatient Rehabilitation Department * Nico [...] 0600 and on the weekends please page [phone]. * Jory Paniagua - 05/20/2023 3:52 PM [...] vomiting Last Bowel Movement: 05/20/23 Jory Paniagua Cook Chill Technician * Rashid Tong, OT - 05/20/2023 [...] IMG S&I N/A 11/09/2022 CORONARY ANGIOGRAPHY; W [facility],POSSIBLE PCI (WRVU 5.6) performed by Mario Alberto [...] three steps to enter. DME: none used LITHOPONE MILL WORKER Baseline ADL/Mobility: Independent with ADLs and IADLs. [...] awareness: WFL Vision & Perception: corrective lenses inspector timers Communication: WFL Range of motion, strength, coordination: [...] Discharge Disposition (OT): swing bed rehabilitation facility, group home facility(vs home with support for IADLs) [...] Discharge planning. Total Minutes, Occupational Therapy: 28 (4019-1301) OT Evaluation Code Rationale: Diagnosis & Pertinent Co-Morbidities affecting Plan of Care: see PMHx Occupational Profile & Client History: Brief Expanded Extensive x Assessment of Occupational Performance: 1-3 performance deficits 3-5 performance deficits x 5 + performance deficits Clinical Decision Making: Low Moderate High x Clinical decision making of moderate complexity using standardized patient assessment instrument and measurable assessment of functional outcome. Pager: [phone] TONG MIKE OT 05/20/2023 Occupational Therapy Rehabilitation [...] 0600 and on the weekends please page [phone]. * Rylie Rodriguez MD - 05/19/2023 3:59 [...] and plan. Cynthia Blackburn MD Nephrology Pager: [phone] * Diana Espino - 05/19/2023 1:49 PM EDT Educational Administrator Encounter Note Patient Name: Purnima Thacker : [id number] MR#: [id number] Admit Date: 05/08/2023 9:14 AM Hospital Day [...] returning home alone. Anticipated Discharge Disposition (PT): group home facility, swing bed rehabilitation facility Consult [...] as stated. Total Minutes, Physical Therapy: 38 ([phone]) Henrik Dale CANDY Navarrete Pager: [phone] Physical Therapy Inpatient Rehabilitation Department * Nico [...] 0600 and on the weekends please page [phone]. * Laure Ricks PA - 05/19/2023 7:56 [...] Ricks PA-C Interventional Radiology IR Team Pager [phone] * Consuelo Espinoza RN - 05/18/2023 4:13 PM EDT ANGIO NURSING DATABASE Name: Purnima Thacker Date of : 1955 AGE: 67 y.o. Address: [address] [place] [phone] (home) Mobile: No relevant phone numbers on [...] fraction I35.0 Mild coronary artery disease by [facility] 11/09/2022 I25.10 Heart failure with reduced ejection [...] and plan. Cynthia Blackburn MD Nephrology Pager: [phone] * Magdalena Puri, ANURAG - 05/18/2023 10:51 AM EDT Images from the original note were not included. [facility] [address] [place], [place] [phone] STRUCTURAL HEART DISEASE CONSULTATION NOTE PRIMARY CARE [...] stenosis. She is now status post TAVR Iikri-jg-Rmeex with a 23 mm Lai 3 THV 05/12/[address] Sharma. Preliminary findings: Successful right transfemoral TAVR Ggnoe-xc-Bjadj with a 23 mm Lai 3 THV. [...] Events: - 05/12 Transferred to [facility] post- TAVR for pressor/inotropic support (Levo, vaso, [...] ejection fraction Mild coronary artery disease by [facility] 11/09/2022 Heart failure with reduced ejection fraction [...] mg 40 mg Oral Daily Corrie SerranoTOREY kayN 40 mg at 05/18/23 0826 Or pantoprazole (Protonix) injection 40 mg 40 mg Intravenous Daily Mara SerranoANURAG 40 mg at 05/12/23 1004 senna-docusate (Pericolace) 8.6-50 mg per tablet 2 tablet 2 tablet Oral Daily Mara SerranoANURAG 2 tablet at 05/16/232 bisacodyL (Dulcolax) suppository 10 mg 10 mg Rectal Daily PRN TolleyMara ernandez APRN melatonin tablet 6 mg 6 mg Oral Nightly PRN Maggie MaraANURAG kay 6 mg at 05/17/232024 influenza vaccine adjuvanted [...] stenosis. She is now status post TAVR Kurwf-no-Hrqrb with a 23 mm Lai 3 THV [...] Magdalena Puri APRN Structural Heart Team Pager [phone] Team Office Please see addendum by Dr. Sharma for final plan and recommendations Associated attestation - Antelmo Sharma MD - 05/19/2023 10:52 PM EDT I have reviewed Magdalena Puri APRN's above history and I agree with the details as written. The assessment and plan were formulated in discussion with me and I agree with them as documented. Antelmo Sharma MD Pager [phone] * Nico Palacios PA - 05/18/2023 8:13 [...] 0600 and on the weekends please page [phone]. * Loli Hernandez, PT - 05/17/2023 5:27 [...] returning home alone. Anticipated Discharge Disposition (PT): group home facility, swing bed rehabilitation facility Consult [...] plan as stated. Time IN / OUT: 7674-1330 Total Minutes, Physical Therapy: 54 Billing Code: te-sx2, te-f, gait LOLI HERNANDEZ PT Pager: [phone] Physical Therapy Inpatient Rehabilitation Department * Cynthia [...] Well controlled. Cynthia Blackburn MD Nephrology Pager: [phone] * Mara Serrano, CRUMB PACKER - 05/17/2023 8:26 AM EDT Cardiac Surgery [...] 0600 and on the weekends please page [phone]. * Guerda Del Valle - 05/16/2023 10:44 AM EDT Nutrition Services Note - Low Nutrition Acuity Purnima Thacker is a 67 y.o. female Reason for intervention: hospital day 9 Nutrition Plan: Continue diet order Encourage good PO Lasix and Zofran noted Added special serve: open containers Monitor weight Patient scheduled for a hospital day 9 nutrition evaluation. Property Analyst met with pt at bedside. Pt reports that her appetite and PO has much improved since admission. Denies nausea/vomiting or trouble chewing/swallowing. Property Analyst provided snack list but pt not interested in adding snacks at this time. Her only concern was that she is worried that she will eat too much which will cause too much pressure in her stomach. Property Analyst assured pt and suggested eating smaller but [...] Last Bowel Movement: 05/10/23 Guerda Del Valle Cook Chill Technician * Vinod Juárez PA - 05/16/2023 [...] 0600 and on the weekends please page [phone]. * Michael Jeffers MD - 05/16/2023 8:11 AM EDT Images from the original note were not included. Hypertension-Nephrology Inpatient Follow-up Purnima Thacker [id number] 1955 ID: 67 y.o. old female seen [...] IRONSAT 12 (L) 05/16/2023 SFOLATE >20.0 07/03/2022 [id number] 07/03/2022 Lab Results Component Value Date [...] Dr. Ayoub. Please contact me at phone: [phone] or pager: [phone] with any questions. Michael Jeffers MD Nephrology [...] -Nephrology consulted, labs and renal US ordered -Edgefield removed, ambulated around the unit -bilateral pleural [...] 0600 and on the weekends please page [phone]. * Hortencia Cody MD - 05/15/2023 2:07 [...] not included. Hypertension-Nephrology Inpatient Follow-up Purnima Thacker [id number] 1955 ID: 67 y.o. old female seen [...] HGB 7.8 (L) 05/13/2023 SFOLATE >20.0 07/03/2022 [id number] 07/03/2022 Lab Results Component Value Date [...] Dr. Ayoub. Please contact me at phone: [phone] or pager: [phone] with any questions. Michael Jeffers MD Nephrology [...] outlined inthis evaluation. HAVEN BA, PT Pager: [phone] Physical Therapy Inpatient Rehabilitation Department Time IN / OUT: 9002-1084 Total time: Total Minutes, Physical Therapy: 30 [...] 0600 and on the weekends please page [phone]. * Antelmo Sharma MD - 05/14/2023 7:56 AM EDT Images from the original note were not included. [facility] [place] [phone] STRUCTURAL HEART DISEASE CONSULTATION NOTE PRIMARY CARE [...] stenosis. She is now status post TAVR Vlnec-ih-Sjwjc with a 23 mm Lai 3 THV 05/12/[address] Sharma. Preliminary findings: Successful right transfemoral TAVR Rllwf-sv-Vwikt with a 23 mm Lai 3 THV. [...] using a 4.0 x 30 mm Resolute MNINA. While there was no coronary occlusion post [...] ejection fraction Mild coronary artery disease by [facility] 11/09/2022 Heart failure with reduced ejection fraction [...] stenosis. She is now status post TAVR Rofpy-dz-Uhvrb with a 23 mm Lai 3 THV [...] Dale ANURAG Kaplan Structural Heart Team Pager [phone] Team Office Please see addendum by Dr. [...] exposure. Nephrology consultationtoday. Antelmo Sharma MD Pager [phone] * Antelmo Cardenas RN - 05/14/2023 5:18 AM EDT Pt AOx4, complaining of mild/moderate generalized pain (states her Meloxicam is effective at home) currently refusing prn oxycodone. NAEON, hemodynamically stable on Milrinone, Maps >65, ST in doa903's down to NSR with frequent multifocal PVC's. [...] note were not included. [facility] [place] [address] STRUCTURAL HEART DISEASE PROGRESS NOTE PRIMARY CARE [...] stenosis. She is now status post TAVR Olfka-zi-Ivwup with a 23 mm Lai 3 THV 05/12/[address] Sharma. Preliminary findings: Successful right transfemoral TAVR Rwbec-bu-Ijrec with a 23 mm Lai 3 THV. [...] or perforation. Interval Events: - Transferred to [facility] post- TAVR for pressor/inotropic support (Levo, vaso, [...] ejection fraction Mild coronary artery disease by [facility] 11/09/2022 Heart failure with reduced ejection fraction [...] stenosis. She is now status post TAVR Gimcj-jo-Dsiva with a 23 mm Lai 3 THV [...] Brody Kaplan APRN Structural Heart Team Pager [phone] Team Office Please see addendum by Dr. [...] DAPT moving forward. Antelmo Sharma MD Pager [phone] * Bonita Miguel PA - 05/13/2023 8:30 AM EDT Cardiac Surgery Progress Note Purnima Thacker is a 67 y.o. 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 PMH of s/p tissue AVR (2017), mixed connective tissue disease HTN, HLD, NICOLAS, diverticulosis, rosacea, essential tremor, and depression. 24h Events: From crown and bridge dental lab technician for above procedure Extubated at [...] soft b/l, no evidence of hematoma. Tubes/Lines/Drains: Edgefield, RIJ, A-line, Art, PIV Assessment/Plan: 67 y.o. [...] 0600 and on the weekends please page [phone]. * Onelia Schwartz MD - 05/12/2023 1:44 [...] ejection fraction Mild coronary artery disease by [facility] 11/09/2022 Heart failure with reduced ejection fraction [...] FiO2 weaned to 40%. 1105: ABG 7.34/42/73/22 0015-4727: SBT performed and passed on these settings [...] PCP: Magdalena Acosta MD PCP phone number: [phone] Date of Admission: 05/08/2023 ( Hospital Day [...] 1447 PHART -- 7.34* 7.34* -- -- [id number] -- 30* 30* -- -- PO2ART -- 72* 81* -- -- CAQ2YGE -- 16.0* 15.7* -- -- LACTATEVEN 2.4* 2.7* 2.7* 4.8* 2.9* VBG (Venous Blood Gas) Recent Labs 05/12/23 0700 05/12/23 0318 05/12/2310505/11/23193905/11/23 1447 LACTATEVEN 2.4* 2.7* 2.7* 4.8* 2.9* Mixed Venous Sat Recent Labs 05/12/23 0508 05/12/23 0321 05/12/23 0114 05/12/23 0030 [id number] 30.7 32.7 37.3 25.1 Objective: Vitals Last [...] have questions please contact the health career law clerk that requested your imaging first. Electronically signed by: ALIX RUVALCABA MD, [facility] ([phone]), at 05/10/2023 1:[address] Cardiac for [...] have questions please contact the health career law clerk that requested your imaging first. Electronically signed by: Cullen Narayanan MD, [facility] ([phone]), at 05/11/2023 4:[address] Angiogram Abdomen [...] have questions please contact the health career law clerk that requested your imaging first. Electronically signed by: Eileen Gomes MD, [facility] ([phone]), at 05/11/2023 2:42 PM XR Chest One [...] have questions please contact the health career law clerk that requested your imaging first. Chest One [...] have questions please contact the health career law clerk that requested your imaging first. Assessment & [...] and inotrope. She is planned for a ncczk-ak-orbnf TAVR this morning, which should hopefully improve [...] of Cardiovascular Medicine [facility] Bobbin Sortertemporary receptionist [facility] at [facility] * Noreen Deutsch RN - 05/12/2023 [...] ejection fraction Mild coronary artery disease by [facility] 11/09/2022 Heart failure with reduced ejection fraction [...] 05/11/2023 4:11 PM EDT Reported off to BRAZE OPERATOR and pt transferred over in the bed for higher level of care. * Antelmo Sharma MD - 05/11/2023 9:45 AM EDT Images from the original note were not included. [facility] [place] [id number] STRUCTURAL HEART DISEASE CONSULTATION NOTE PRIMARY CARE [...] who had been referred for possible TAVR lavxa-fl-klfsz evaluation. Her primary symptoms are of dyspnea [...] originally from [place]. 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 [...] ejection fraction Mild coronary artery disease by [facility] 11/09/2022 Heart failure with reduced ejection fraction [...] whole blood, send to lab ([facility]) Result Value Ref Range Lactate WB 3.1 (H) 0.5 - 2.2 mmol/L Heparin (unfractionated) Level Result Value Ref Range Heparin UFH Level 0.46 IU/mL Lactate, whole blood, send to lab ([facility]) Result Value Ref Range Lactate WB 1.8 [...] leads Confirmed by MD Harshil, Enrique Bell ([id number]) on 05/10/2023 8:11:46 AM Cardiac Cath 11/09/2022 [...] HFrEF, she was transferred to [facility] this afternoon for further management. TAVR CT imaging support for adequate ileofemoral access. Given her acute deterioration today, will planfor RTF TAVR on 05/12/2023. Brody Kaplan ANURGA Structural Heart Disease Pager [phone] Please see addendum by Dr. Sharma for [...] signed and dated. Antelmo Sharma MD Pager [phone] * Harini Lance MD - 05/11/2023 6:06 AM EDT Images from the original note were not included. Cardiology Progress Note Patient info: Name: Purnima Thacker : 1955 PCP: Magdalena Acosta MD PCP phone number: [phone] Date of Admission: 05/08/2023 ( Hospital Day [...] have questions please contact the health career law clerk that requested your imaging first. Electronically signed by: ALIX RUVALCABA MD, [facility] ([phone]), at 05/10/2023 1:25 PM TTE: 05/08 -Left [...] 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) Mild coronary artery disease by [facility] 11/09/2022 Hyperlipidemia, unspecified NICOLAS (obstructive sleep apnea) [...] PCP: Magdalena Acosta MD PCP phone number: [phone] Date of Admission: 05/08/2023 ( Hospital Day [...] 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) Mild coronary artery disease by [facility] 11/09/2022 Hyperlipidemia, unspecified NICOLAS (obstructive sleep apnea) [...] PCP: Magdalena Acosta MD PCP phone number: [phone] Date of Admission: 05/08/2023 ( Hospital Day [...] Gas) No results found for: PHART, PO2ART, URR8TOI, OBV8QRR Microbiology: Microbiology Results (Last 30 days) No [...] Daily Healthy Menu Choices/Cardiac diet ([facility] Lines: Peripheral IV Line - Single Lumen [...] 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) Mild coronary artery disease by [facility] 11/09/2022 Hyperlipidemia, unspecified NICOLAS (obstructive sleep apnea) [...] fraction I35.0 Mild coronary artery disease by [facility] 11/09/2022 I25.10 Heart failure with reduced ejection fraction due to heart valve disease I50.20, I38 Cardiogenic shock R57.0 S/P TAVR (transcatheter aortic valve replacement) Z95.2 Past Medical History: Diagnosis Date Anemia Past Surgical History: Procedure Laterality Date PRG CATH PLMT LEFT HEART CATH & ARTS W/INJ & ANGIO IMG S&I N/A 11/09/2022 CORONARY ANGIOGRAPHY; W [facility],POSSIBLE PCI (WRVU 5.6) performed by Mario Alberto [...] Verio test strips Strip USE DAILY OneTouch DelAllozyne Plus Lancet 33 gauge Misc USE DAILY [...] fraction I35.0 Mild coronary artery disease by [facility] 11/09/2022 I25.10 Heart failure with reduced ejection fraction due to heart valve disease I50.20, I38 Cardiogenic shock R57.0 S/P TAVR (transcatheter aortic valve replacement) Z95.2 Past Medical History: Diagnosis Date Anemia Past Surgical History: Procedure Laterality Date PRG CATH PLMT LEFT HEART CATH & ARTS W/INJ & ANGIO IMG S&I N/A 11/09/2022 CORONARY ANGIOGRAPHY; W [facility],POSSIBLE PCI (WRVU 5.6) performed by Mario Alberto [...] days, which prompted her to present to [employer] [facility] [employer]. She also endorses some intermittent retrosternal chest pain with exertion.She endorses some dizziness with exertion, but has not gotten faint or passed out. At [employer] she was noted to be afebrile, blood pressure 105/64, HR 120s, satting 95% on 2L NC. Labs from [facility] are below, of note [...] 89/59, which prompted the transfer to us. [facility] labs: CBC - Hgb 10.5 CMP - Cr 1.1 BNP 67946 HsTrop 1358 Lactate 1.6 D-dimer 1183 Interval [...] Code Status: Attempt Cardiopulmonary Resuscitation - Inpatient [facility] Roman Reid MD Internal Medicine PGY-1 Pager [phone], M1-S1 Service Associated attestation - Juan Luis Gonzalez MD - 05/08/2023 10:00 PM EDT Cardiology Attending Addendum Active Hospital Problems Diagnosis Symptomatic severe aortic stenosis with low ejection fraction Heart failure with reduced ejection fraction due to heart valve disease Mild coronary artery disease by [facility] 11/09/2022 Hyperlipidemia, unspecified History of aortic valve [...] PCP: Magdalena Acosta MD PCP phone number: [phone] Date of Admission: 05/08/2023 ( Hospital Day 0 days ) Attending:Enrique Chua MD ID: Purnima Thacker is a 67 y.o. female w/ PMH of s/p bioprosthetic AVR in 2016 with recent concern for severe restenosis, HTN, HLD, mixed connective tissue disease, who presents in transfer from [facility] with worsening BONILLA and [...] four days, which promptedher to present to [employer]. She also endorses some intermittent retrosternal chest pain with exertion. She endorses some dizziness with exertion, but has not gotten faint or passed out. At [facility] she was noted to be afebrile, blood pressure 105/64, HR 120s, satting 95% on 2L NC. Labs from [facility] are below, of note [...] 89/59, which prompted the transfer to us. [facility] labs: CBC - Hgb 10.5 CMP - Cr 1.1 BNP 05319 HsTrop 1358 Lactate 1.6 D-dimer 1183 Vasoactive [...] tissue disease, who presents [facility] B[facility] and weight [...] Daily Healthy Menu Choices/Cardiac diet ([facility] DVT Prophylaxis: heparin gtt GI Prophylaxis: none [...] remains HD stable, can transfer out of [facility]. -Structural Heart consult; will need inpatient TAVR. [...] to the planned procedure. Hand Hygiene: The plastic frame inserter did perform hand hygiene prior to [...] Successful arterial line placement. Crispin Timmons MD Aircraft Sales Representative Associated attestation - Onelia Schwartz MD [...] (flow was non-pulsatile) and appearance of blood. [place]-Marily catheter was placed and locked at 55 cm. Initial CVP of 10 with PA pressures in the 40s/20s. Initial TD with CI of 1.03. Crispin Timmnos MD 1:13 AM 05/12/23 Associated attestation - [...] information for follow-up [facility], [place] [address] [place] [address] Cardiac Rehab, [facility] [address] [place] [address] [facility] [address] [place] [address] Transportation: family or friend will provide *Brother [...] Type: *No Product type* / Secondary Insurance: 60mo [place] Prescription Coverage: Yes This plan was formulated with input from patient, family (please identify family/friend involved ifapplicable) and team. All are in agreement with plan. Aliza Martino MSN-Ed, RN ACM hygiene assistant Office of Care Management Pager #[phone] * Plan of Care - Favian Mckeon [...] Chaudhary RN - 05/21/2023 4:46 PM EDTSummary: [facility] referral OFFICE OF CARE MANAGEMENT [...] Type: *No Product type* / Secondary Insurance: 60mo [place] Last Physical Therapy Recommendation: (Home with assist from Brother; Friend arriving Tues) with walker, front wheeled Last Occupational Therapy Recommendation: swing bed rehabilitation facility, group home facility (vs home with support for IADLs) with walker, front wheeled, shower chair Plan for discharge is: Home w/ Services Outpatient Agency/Support Group Needs: Homecare agency Home Health Services: Physical Therapy, Occupational Therapy Agency Referrals: I have met with the patient to: discuss discharge planning needs. describing our affiliations within the [facility] and educate about their right to choose where referrals are sent. provide a list of Home Health Agencies / Durable Medical Equipment vendors which serve their preferred geographic area. They have requested referrals to: [facility] [address] [place] [address] Ortho Care Located @ [place], [place] Note routed to a Separator Operator who will communicate referrals to facilities and provide any required information. Transportation: family or friend will provide *Brother Raymond on Tuesday 05/22 at 1000 Barriers to discharge: Does not have home 22/02 assist available until tomorrow Tuesday 05/22 Plan going forward: Discharge home into the 22/02 home care of brother Raymond with [facility] and [facility] PT/OT services on Tuesday 05/22 [...] Attending: All Staff: Staff Role Juanita Almaguer Flap Maker Laure Ricks PA Physician Terminal Operator Magdalena Rodriguez cutter machine tender Nurse Consuelo Espinoza, cutter machine tender Nurse Post-operative diagnosis/Indication: Right pleural effusion Name [...] Type: *No Product type* / Secondary Insurance: [facility] [facility] Last Physical Therapy Recommendation: group home facility, swing bed rehabilitation facility with [...] discharge planning needs. provide the [facility], Office of Care Management letter from the Bar Host pertaining to rehab referrals. provide a letter describing our affiliations within the [facility] and educate about their right to choose where referrals are sent. provide the CMS Star Quality Rating handout. review the different levels of rehab including SNF, swing, and acute. provide a list of facilities within their preferred geographic area. request that they provide at least three choices for referral. They have requested referrals to: [facility] [address] [place] [address] [facility]) [address] [place] [address] (Accepts pts only after exhausting all other local SNF options) [facility] ([facility]) ([facility]) [address] [place] [address] PHONE: [phone] FAX: [phone] [facility] [place] ([facility]) [facility]) [address] [place] [address] PHONE: [phone] FAX: [phone] Note routed to a Separator Operator who will communicate referrals to facilities [...] - 05/17/2023 10:25 AM EDT [facility] Purnmia Thacker was seen today regarding participation in the outpatient Phase 2 Cardiac Rehabilitation at [facility]. The patient agrees to [...] from the original note were not included. [facility] NEPHROLOGY/HYPERTENSION CONSULT NOTE PATIENT: Purnima Thacker [...] in her course. She ultimately underwent a ftamd-fd-mrrda procedure on and tolerated it well (see [...] 1423 05/12/23 1105 PHART 7.39 7.37 7.34* SUF7EDI 33* 36 42 PO2ART 101 102 73* IDY8QSQ 19.5* 20.4 22.1 LACTATEVEN 1.5 1.8 2.8* IXW0KAQ 40 40 40 PFRATIOART2 252 255 182 VBG (Venous Blood Gas) Recent Labs 05/12/23 1557 05/12/23 1423 05/12/23 1105 LACTATEVEN 1.5 1.8 2.8* Mixed Venous Sat Recent Labs 05/12/23 1425 05/12/23 0508 05/12/23 0321 P8IATO5 59.9 30.7 32.7 LFT's: Recent Labs 05/14/23 0110 05/13/23 0115 05/12/23 0600 BILITOT 0.4 0.5 0.9 BILIDIR -- 0.3 -- ALBUMIN 3.6 3.0* 3.5 ALKPHOS 86 85 100 ALT 437* 903* 1,174* AST 319* 792* 1,435* No results found for: UPROTCREAT No results found for: TPROTEINPEP, ALBELECT No results found for: MICROALBUR, EYSY17WOD No results found for: HA1C Lab Results Component Value Date CALCIUM 8.5 05/14/2023 PHOS 4.7 (H) 05/08/2023 No results found for: 25OHVITD MICROBIOLOGY: ProcedureComponentValueUnitsDate/TimeUrine culture [[id number]]Collected: 05/11/231921Lab Status: Final resultSpecimen: Clean Catch UrineUpdated: [...] consulted for assessment if this patient needs MATERIAL WORKER. Atthis time, we can likely hold off on MATERIAL WORKER. Her volume status appears sufficient and her metabolic kanwal angements with mild acidosis is not too profound. Patient does not have significant uremic symptoms. We can hold off for today, but the patient is a high risk candidate for needing MATERIAL WORKER in future daysespecially if her Cr curve trends the direction it is for the next several days. S/p Nmwcj-ch-Valqs TF TAVR: Management per cardiology. On milrinone gtt. PLAN: - Please obtain following diagnostics: renal US, urinalysis, urine prot/Cr ratio, urine albumin/Cr ratio, CK, uric acid, serum osmol, daily VBGs - No acute indications for MATERIAL WORKER/dialysis. We will keep close eye on Cr trend, volume status, and metabolics to ensure patient still does not need MATERIAL WORKER as she ensues intrinsic renal recovery [...] M.H.A., M.A. PGY-V Nephrology-Hypertension Fellow Page # [phone] [facility] [address] 2nd floor, Onsite Health Coach [address] [place] [address] * Care Management - Mario Alberto Olmos [...] Type: *No Product type* / Secondary Insurance: [facility] Plan for discharge is: Home w/o [...] TAVR at 730. Returned to [facility] at 0945. Was intubated in the crown and bridge dental lab technician due to agitation. Maintained bedrest [...] Operative Note Patient Name: Purnima Thacker : [id number] MR#: [id number] Case Date: 05/12/2023 Surgeon: Surgeon(s) and Role: [...] procedure Note: Patient Name: Purnima Thacker : [id number] MR#: [id number] Case Date: 05/12/2023 Operators Surgeon: Surgeon(s) and Role: Panel 1: * Antelmo Sharma MD - Primary * Rebeakh Tejeda MD - Fellow - Assisting Panel [...] main with 4.0 x 30 mm Resolute [facility] Eluting Stent Perclose x1 + Angio-seal 8 Fr x1, RFA Manual pressure, LFA Manual pressure, LFV Endotracheal intubation (performed by cardiac anesthesia) Preliminary findings: Successful right transfemoral TAVR Ldxsv-yf-Jcxsu with a 23 mm Lai 3 THV. [...] MD, M.Sc. Structural Heart Disease Fellow Pager :[phone] Antelmo Sharma MD Pager [phone] * Op Note - Alirio Hudson MD - 05/12/2023 7:37 AM EDT Preop Diagnosis: Severe aortic stenosis, symptomatic. Postop Diagnosis: Same. Procedure: Transfemoral TAVR procedure with 23mm valve. Surgeon: Alirio Hudson M.D. Museum Archivist: Danny CULP Procedure: The patient was taken to the crown and bridge dental lab technician. 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 [facility] [place] [address] STRUCTURAL HEART DISEASE CONSULTATION NOTE PRIMARY CARE [...] who had been referred for possible TAVR yqlmk-bu-zrmep evaluation. Her primary symptoms are of dyspnea [...] originally from [place]. 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 PROBLEM LIST: Patient Active Problem List Diagnosis Symptomatic severe aortic stenosis with low ejection fraction Mild coronary artery disease by [facility] 11/09/2022 Heart failure with reduced ejection fraction [...] whole blood, send to lab ([facility] Result Value Ref Range Lactate WB 1.8 [...] leads Confirmed by MD Harshil, Enrique Bell ([id number]) on 05/10/2023 8:11:46 AM Assessment and Plan: [...] Antelmo Sharma MD Structural Heart Disease Pager [phone] * Plan of Care - Sarahi Nice RN - 05/10/2023 3:55 AM EDTSumavis: VALDO Note and Care Plan Sarahi Nice RN assumed care of pt at time of their arrival to room 362 from [facility]. Pt voices shortness of breath at time [...] Transfer from another hospital Location: admitted from [facility] Reason for Hospitalization: Critical [...] 180 days) Any patient receiving care in [place] must abide by [place] law. The hierarchy [...] (i) The agent with financial power of research attorney or a conservator appointed in accordance [...] Current DME: none Home Address confirmed as: [address] [place] [phone] Social & Family Supports: All names listed [...] *No Product type* / Secondary Insurance: [facility] [place] ONLY if patient has Medicare A&B - Does this patient have secondary insurance?: Yes ; Prescription Coverage: Yes Preferred Pharmacy: updated to [facility] in [facility] Status: Patient is a : No Primary Care Provider confirmed: Magdalena Acosta MD [phone] Patient/Caregiver Goals of Treatment: Potential Needs for [...] of a 2 story home with [address] [facility]. Patient is independent with ADL's at [...] of care planning. Alie Bradshaw RN, CM Pager-[phone] * Plan of Care - Emily Lucero RN - 05/08/2023 2:54 PM EDT OUTCOME EVALUATION NOTE: OUTCOME SUMMARY: Pt arrived from [facility]. A&O, no c/o pain [...] AM EDT Appointment H[place]ology [place] [address] 05/12/2024 10:00 AM EDT Office Visit [place]ology [place] [address] Markel Borjas MD [address] [facility] [address] [place] [address] 03/01/2025 4:15 PM EDT Office Visit Dermatology at [place] [address] [facility] [place] [id number] Marek Bonilla MD [address], [address] DERMATOLOGY [place], [place] [id number] Scheduled Referrals Name Type Priority Associated Diagnoses [...] Heart Cath W/Inj L Ventriculography, Img S&I ([id number]) 05/12/2023 7:37 AM EDT Aortic valve stenosis, [...] COLOR DOPP (07/08/2023 12:15 PM EST) Pathologist [facility] EF 20 HEARTFigure 1 SYSTEM Anatomical Region Laterality Modality Cardiac Other 07/08/2023 10:3 1 AM EST Narrative 07/08/2023 12:26 PM EST [address] [place] [id number] ? Echocardiogram Report Name: PURNIMA THACKER ?Study Date: 07/08/2023 10:31 AMBP: 118/60 mmHg ? Patient Location: : 1955 ? Height: 155 cm ? Account: [id number] Age: 67 yrs ? Weight: 74 kg [...] no significant change (post-procedure). Procedure Limited - 62413. Doppler - 80969. Color Doppler - 22229. Satisfactory quality. This study is limited because [...] Note Lee Kincaid MD - 07/08/2023 1 [place] [address] Echocardiogram Report Name: PURNIMA THACKER Study Date: 0:31 AMBP: 118/60 mmHg Patient Location: : 1955 Height: 155 cm Account: [id number] Age: 67 yrs Weight: 74 kg Gender: [...] is nosignificant change (post-procedure). Procedure Limited - 29655. Doppler - 35540. Color Doppler - 99680. Satisfactoryquality. This study is limited because of [...] EST) Glucose 93 65 - 199 mg/dL [facility] Comment:Diabetes: >=200 mg/d L plus symptoms Blood Urea Nitrogen 19(H) 8 - 18 mg/dL [facility] Creatinine 0.81 0.70 - 1.20 mg/dL [facility] Sodium 142 135 - 145 mmol/L [facility] Potassium 3.8 3.5 - 5.0 mmol/L [facility] Comment: Please note: ??Patients with WBC >100,000 may have falsely elevated Potassium levels. ??For accurate Potassium quantification in these patients send serum separator tube (gold top) for subsequent determinations. ??Contact the Clinical Chemistry Laboratory if there are any questions. Chloride 104 98 - 107 mmol/L [facility] Carbon Dioxide 26 22 - 31 mmol/L [facility] Anion Gap 12 5 - 15 mmol/L [facility] Calcium 10.2 8.5 - 10.5 mg/dL [facility] Protein, Total 7.4 6.1 - 8.0 g/dL [facility] Albumin 4.1 3.2 - 5.2 g/dL [facility] Aspartate Aminotransferase 24 0 - 30 unit/L [facility] Alanine Aminotransferase 12 0 - 30 unit/L [facility] Alkaline Phosphatase 93 35 - 105 unit/L [facility] Bilirubin, Total 0.3 0.2 - 1.3 mg/dL [facility] Est Glomerular Filtration Rate 80 >=60 mL/min/1. 73 m?? [facility] Comment: This patient's estimated GFR was [...] [facility] Co de Phone Number [facility] [place] [address] * (ABNORMAL) Basic Metabolic Panel (non-fasting) (05/22/2023 3:57 AM EDT) Pathologist [facility] Glucose 88 65 - 199 mg/dL [facility] Comment:Diabetes: >=200 mg/d L plus symptoms Blood Urea Nitrogen 21(H) 8 - 18 mg/dL [facility] Creatinine 0.69(L) 0.70 - 1.20 mg/dL [facility] Sodium 136 135 - 145 mmol/L [facility] Potassium 3.6 3.5 - 5.0 mmol/L [facility] Comment: Please note: ??Patients with WBC >100,000 may have falsely elevated Potassium levels. ??For accurate Potassium quantification in these patients send serum separator tube (gold top) for subsequent determinations. ??Contact the Clinical Chemistry Laboratory if there are any questions. Chloride 102 98 - 107 mmol/L [facility] Carbon Dioxide 23 22 - 31 mmol/L [facility] Anion Gap 11 5 - 15 mmol/L [facility] Calcium 8.6 8.5 - 10.5 mg/dL [facility] Est Glomerular Filtration Rate 95 >=60 mL/min/1. 73 m?? [facility] Comment: This patient's estimated GFR was [...] Lab Mara Maggie OSBORN CHEMISTRY ORDERABL ES [facility] [place] [address] * (ABNORMAL) Basic Metabolic Panel (non-fasting) (05/21/2023 5:06 AM EDT) Pathologist [facility] Glucose 87 65 - 199 mg/dL [facility] Comment:Diabetes: >=200 mg/d L plus symptoms Blood Urea Nitrogen 25(H) 8 - 18 mg/dL [facility] Creatinine 0.84 0.70 - 1.20 mg/dL [facility] Sodium 136 135 - 145 mmol/L [facility] Potassium 3.6 3.5 - 5.0 mmol/L [facility] Comment: Please note: ??Patients with WBC >100,000 may have falsely elevated Potassium levels. ??For accurate Potassium quantification in these patients send serum separator tube (gold top) for subsequent determinations. ??Contact the Clinical Chemistry Laboratory if there are any questions. Chloride 102 98 - 107 mmol/L [facility] Carbon Dioxide 26 22 - 31 mmol/L [facility] Anion Gap 8 5 - 15 mmol/L [facility] Calcium 8.9 8.5 - 10.5 mg/dL [facility] Est Glomerular Filtration Rate 76 >=60 mL/min/1. 73 m?? [facility] Comment: This patient's estimated GFR was [...] Narrative Resulting Agency Comment Spec In Lab [facility] CRUMB PACKER CHEMISTRY ORDERABL ES Performing Organization Address [facility] Co de Phone Number [facility] [place] [address] * Lavender Tube HOLD (05/20/2023 2:52 AM EDT) Lavender Hold Sample in lab. [facility] Blood Venous Draw / Unknown 05/20/2023 2:52 AM EDT 05/20/2023 3:04 AM EDT [facility] CRUMB PACKER HEMATOLOGY ORDERAB LES Performing Organization Address [facility] Co de Phone Number [facility] [place] [address] * (ABNORMAL) Basic Metabolic Panel (non-fasting) (05/20/2023 2:52 AM EDT) Glucose 152 65 - 199 mg/dL [facility] Comment:Diabetes: >=200 mg/d L plus symptoms Blood Urea Nitrogen 33(H) 8 - 18 mg/dL [facility] Creatinine 0.82 0.70 - 1.20 mg/dL [facility] Sodium 137 135 - 145 mmol/L [facility] Potassium 3.7 3.5 - 5.0 mmol/L [facility] Comment: Please note: ??Patients with WBC >100,000 may have falsely elevated Potassium levels. ??For accurate Potassium quantification in these patients send serum separator tube (gold top) for subsequent determinations. ??Contact the Clinical Chemistry Laboratory if there are any questions. Chloride 99 98 - 107 mmol/L [facility] Carbon Dioxide 22 22 - 31 mmol/L [facility] Anion Gap 16(H) 5 - 15 mmol/L [facility] Calcium 9.0 8.5 - 10.5 mg/dL [facility] Est Glomerular Filtration Rate 78 >=60 mL/min/1. 73 m?? [facility] Comment: This patient's estimated GFR was [...] Agency Comment Spec In Lab Mara [place] CRUMB PACKER CHEMISTRY ORDERABL ES Performing Organization Address [facility] Co de Phone Number [facility] [place] [address] * (ABNORMAL) Potassium (05/20/2023 2:52 AM EDT) [facility] Signature Potassium 3.4(L) 3.5 - 5.0 mmol/L [facility] Comment: Please note: ??Patients with WBC >100,000 may have falsely elevated Potassium levels. ??For accurate Potassium quantification in these patients send serum separator tube (gold top) for subsequent determinations. ??Contact the Clinical Chemistry Laboratory if there are any questions. Blood 05/20/2023 2:52 AM EDT 05/20/2023 3:03 AM EDT Narrative Resulting Agency Comment Spec In Lab Mara [place] CRUMB PACKER CHEMISTRY ORDERABL ES Performing Organization Address City/[facility] Co de Phone Number [facility] [place] [address] * XR Chest PA & Lateral (Generic) [...] have questions please contact the health career law clerk that requested your imaging first. ? Electronically signed by: Cyhna Johnson MD, [facility] ??([phone]), at 05/19/2023 2:19 PM Narrative 05/19/2023 2:19 [...] who have questions please contactthe health career law clerk that requested your imaging first. Electronically signed by: Chyna Johnson MD, [facility]([phone]), at 05/19/2023 2:19 PM Alirio Hudson MD IMG DX ORDERABLES * (ABNORMAL) Basic Metabolic Panel (non-fasting) (05/19/2023 5:49 AM EDT) Glucose 93 65 - 199 mg/dL [facility] Comment:Diabetes: >=200 mg/d L plus symptoms Blood Urea Nitrogen 45(H) 8 - 18 mg/dL [facility] Creatinine 1.02 0.70 - 1.20 mg/dL [facility] Sodium 138 135 - 145 mmol/L [facility] Potassium 3.9 3.5 - 5.0 mmol/L [facility] Comment: Please note: ??Patients with WBC >100,000 may have falsely elevated Potassium levels. ??For accurate Potassium quantification in these patients send serum separator tube (gold top) for subsequent determinations. ??Contact the Clinical Chemistry Laboratory if there are any questions. Chloride 102 98 - 107 mmol/L [facility] Carbon Dioxide 26 22 - 31 mmol/L [facility] Anion Gap 10 5 - 15 mmol/L [facility] Calcium 9.7 8.5 - 10.5 mg/dL [facility] Est Glomerular Filtration Rate 60 >=60 mL/min/1. 73 m?? [facility] Comment: This patient's [...] Agency Comment Spec In Lab Mara Serrano CRUMB [employer]ACK[place] [address] * IR Chest Tube Placement Right (05/18/2023 [...] EDT) Glucose 95 65 - 199 mg/dL [facility] Comment:Diabetes: >=200 mg/d L plus symptoms Blood Urea Nitrogen 71(H) 8 - 18 mg/dL [facility] Comment:result rechecked-[facility] Creatinine 1.64(H) 0.70 - 1.20 mg/dL [facility] Comment:result rechecked-[facility] Sodium 137 135 - 145 mmol/L [facility] Potassium 3.7 3.5 - 5.0 mmol/L [facility] Comment: Please note: ??Patients with WBC >100,000 may have falsely elevated Potassium levels. ??For accurate Potassium quantification in these patients send serum separator tube (gold top) for subsequent determinations. ??Contact the Clinical Chemistry Laboratory if there are any questions. Chloride 100 98 - 107 mmol/L [facility] Carbon Dioxide 24 22 - 31 mmol/L [facility] Anion Gap 13 5 - 15 mmol/L [facility] Calcium 9.7 8.5 - 10.5 mg/dL [facility] Est Glomerular Filtration Rate 34(L) >=60 mL/min/1. 73 m?? [facility] Comment: This patient's estimated GFR was [...] Agency Comment Spec In Lab Mara Serrano CRUMB PACKER CHEMISTRY ORDERABL ES [facility] [place] [address] * XR Chest PA & Lateral (Generic) [...] have questions please contact the health career law clerk that requested your imaging first. ? Narrative [...] who have questions please contactthe health career law clerk that requested your imaging first. Electronically signed by: Ghassan Reyes MD, [facility]([phone]), at 05/17/2023 11:46 AM Alirio Hudson MD IMG DX ORDERABLES * (ABNORMAL) Comprehensive metabolic panel (non-fasting) (05/17/2023 4:35 AM EDT) Glucose 89 65 - 199 mg/dL [facility] Comment:Diabetes: >=200 mg/d L plus symptoms Blood Urea Nitrogen 97(H) 8 - 18 mg/dL [facility] Creatinine 2.97(H) 0.70 - 1.20 mg/dL [facility] Comment:result rechecked-[facility] Sodium 135 135 - 145 mmol/L [facility] Potassium 4.1 3.5 - 5.0 mmol/L [facility] Comment: Please note: ??Patients with WBC >100,000 may have falsely elevated Potassium levels. ??For accurate Potassium quantification in these patients send serum separator tube (gold top) for subsequent determinations. ??Contact the Clinical Chemistry Laboratory if there are any questions. Chloride 97(L) 98 - 107 mmol/L [facility] Carbon Dioxide 22 22 - 31 mmol/L [facility] Anion Gap 16(H) 5 - 15 mmol/L [facility] Calcium 9.6 8.5 - 10.5 mg/dL [facility] Protein, Total 6.5 6.1 - 8.0 g/dL [facility] Albumin 3.7 3.2 - 5.2 g/dL [facility] Aspartate Aminotransferase 58(H) 0 - 30 unit/L [facility] Alanine Aminotransferase 66(H) 0 - 30 unit/L [facility] Alkaline Phosphatase 86 35 - 105 unit/L [facility] Bilirubin, Total 0.6 0.2 - 1.3 mg/dL [facility] Est Glomerular Filtration Rate 17(L) >=60 mL/min/1. 73 m?? [facility] Comment: This patient's estimated GFR was [...] Lab Alirio Hudson MD CHEMISTRY ORDERABLE S [facility] [place] [address] * Potassium (05/16/2023 11:15 PM EDT) Potassium 3.7 3.5 - 5.0 mmol/L [facility] Comment: Please note: ??Patients with WBC [...] MD CHEMISTRY ORDERABLE S Performing Organization Address [facility]/ZIP Co de Phone Number [facility] [place] [address] * Magnesium (05/16/2023 5:22 PM EDT) Pathologist [facility] Magnesium 0.96 0.69 - 1.07 mmol/L [facility] Blood 05/16/2023 5:22 PM EDT 05/16/2023 5:27 PM EDT Narrative Resulting Agency Comment Spec In Lab Alirio Hudson MD CHEMISTRY ORDERABLE S Performing Organization Address [facility] Co de Phone Number [facility] [place] [address] * (ABNORMAL) Basic Metabolic Panel (non-fasting) (05/16/2023 5:22 PM EDT) Pathologist [facility] Glucose 106 65 - 199 mg/dL [facility] Comment:Diabetes: >=200 mg/d L plus symptoms Blood Urea Nitrogen 103(H) 8 - 18 mg/dL [facility] Creatinine 3.91(H) 0.70 - 1.20 mg/dL [facility] Comment:result rechecked-imm Sodium 132(L) 135 - 145 mmol/L [facility] Potassium 3.6 3.5 - 5.0 mmol/L [facility] Comment: Please note: ??Patients with WBC >100,000 may have falsely elevated Potassium levels. ??For accurate Potassium quantification in these patients send serum separator tube (gold top) for subsequent determinations. ??Contact the Clinical Chemistry Laboratory if there are any questions. Chloride 92(L) 98 - 107 mmol/L [facility] Carbon Dioxide 22 22 - 31 mmol/L [facility] Anion Gap 18(H) 5 - 15 mmol/L [facility] Calcium 9.7 8.5 - 10.5 mg/dL [facility] Est Glomerular Filtration Rate 12(L) >=60 mL/min/1. 73 m?? [facility] Comment: This patient's estimated GFR was [...] MD CHEMISTRY ORDERABLE S Performing Organization Address City/[facility]/ZIP Co de Phone Number [facility] [place] [address] * (ABNORMAL) Potassium (05/16/2023 11:43 AM EDT) Potassium 3.3(L) 3.5 - 5.0 mmol/L [facility] Comment: Please note: ??Patients with WBC [...] MD CHEMISTRY ORDERABLE S Performing Organization Address City/[facility]/ZIP Co de Phone Number [facility] [place] [address] * (ABNORMAL) Ferritin (05/16/2023 4:41 AM EDT) Pathologist [facility] Ferritin 1,813(H) 30 - 400 ng/mL [facility] Comment: Pediatric reference ranges not [place] [facility] interpret with caution. Reference ranges for females greater than 50 years of age approach values for men, i.e., 30-400 ng/mL. Blood 05/16/2023 4:41 AM EDT 05/16/2023 4:54 AM EDT Narrative Resulting Agency Comment Spec In Lab Kristopher Ayoub MD CHEMISTRY ORDERABLES [facility] [place] [address] * (ABNORMAL) PTH (05/16/2023 4:41 AM EDT) [facility] Parathyroid Hormone 120(H) 15 - 65 pg/mL [facility] Blood 05/16/2023 4:41 AM EDT 05/16/2023 4:54 AM EDT Narrative Resulting Agency Comment Spec In Lab Kristopher Ayoub MD CHEMISTRY ORDERABLES [facility] [place] [address] * Vitamin D, 25-Hydroxy (05/16/2023 4:41 AM EDT) [facility] Vitamin D Total 25 OH 33 21 - 100 ng/mL [facility] Vit D Interp Sufficient [facility] Blood 05/16/2023 4:41 AM EDT 05/16/2023 4:54 AM EDT Narrative Resulting Agency Comment Spec In Lab Kristopher Ayoub MD CHEMISTRY ORDERABLES [facility] [place] [address] * (ABNORMAL) Blood Gas Venous ([facility]) (05/16/2023 4:22 AM EDT) pH, Venous 7.41 7.32 - 7.42 [facility] PCO2, Venous 32(L) 41 - 51 mmHg [facility] PO2, Venous 73(H) 25 - 40 mmHg [facility] Bicarbonate, Venous 19.6 mmol/L [facility] Base Excess, Venous -5.1 mmol/L [facility] Hgb Blood Gas 9.7(L) 11.7 - 15.5 g/dL [facility] Oxyhemoglobin, Venous 92.8 % [facility] Carboxyhemoglob in, Venous 0.1 % [facility] Comment: Nonsmokers: 0.5-1.5% COHB Smokers: Variable, but usually less than 10% Toxic: 20-30% COHB Lethal: Greater than 60% COHB Methemoglobin, Venous 0.3 <=1.5 % [facility] Na Whole Blood 130(L) 135 - 145 mmol/L [facility] K Whole Blood 3.7 3.5 - 5.0 mmol/L [facility] Comment: Please note: Patients with WBC >100,000 may have falsely elevated Potassium levels. Contact the Clinical Chemistry Laboratory if there are any questions. ICa Whole Blood 1.15 1.15 - 1.33 mmol/L [facility] Comment: Note: ??Total bilirubin higher than 20 mg/dL may lead to falsely low ionized calcium. CL Whole Blood 95(L) 98 - 107 mmol/L [facility] Gluc Whole Bld 82 65 - 199 mg/dL [facility] Comment:Diabetes: >=200 mg/d L plus symptoms Lactate WB 1.1 0.5 - 2.2 mmol/L [facility] Blood Gas Source Venous [facility] Blood Venous Draw / Unknown 05/16/2023 4:22 AM EDT 05/16/2023 4:31 AM EDT Narrative Resulting Agency Comment Spec In Lab Bonita TOBAR CHEMISTRY ORDERABLES [facility] [place] [address] * (ABNORMAL) Differential, Automated (05/16/2023 4:20 AM EDT) Neutrophil % 84.1 % [facility] Neutrophil Absolute 6.22(H) 1.70 - 6.10 x10(3)/mc L [facility] Lymph % 5.8 % [facility] Lymphocytes Abs 0.4(L) 0.9 - 3.2 x10(3)/mc L [facility] Monocyte % 8.8 % [facility] Monocyte Abs 0.6 0.3 - 0.9 x10(3)/ L [facility] Eos % 0.4 % [facility] Eosinophils Abs 0.0 0.0 - 0.4 x10(3)/mc L [facility] Basophil % 0.0 % [facility] Baso Absolute 0.0 0.0 - 0.1 x10(3)/ L [facility] Immature Gran % 0.90 % [facility] Comment: Immature granulocytes(IG's)percentage and absolute count will include metamyelocytes, myelocytes, and promyelocytes. Blood smears from CBCs yielding IG's will be scanned manually for concordance. If this scan disagrees with the automated IG or if promyelocytes are noted, a manual differential will be performed. Immature Gran Absolute 0.07(H) 0.00 - 0.04 x10(3)/ L [facility] Blood 05/16/2023 4:20 AM EDT 05/16/2023 4:29 AM EDT Narrative Resulting Agency Comment Spec In Lab James Agustin MD HEMATOLOGY ORDER JODIE [facility] [place] [address] * (ABNORMAL) Hemogram (05/16/2023 4:20 AM EDT) White Blood Cell 7.4 4.0 - 9.5 x10(3)/mc L [facility] Red Blood Cell 2.40(L) 4.00 - 5.21 x10(6)/mc L [facility] Hemoglobin 7.8(L) 11.7 - 15.5 g/dL [facility] Hematocrit 22.5(L) 35.7 - 45.8 % [facility] Mean Cell Volume 93.8 82.6 - 94.4 fL [facility] Mean Cell Hemoglobin 32.5(H) 27.1 - 32.0 pg [facility] Mean Cell Hemoglobin Concentration 34.7 31.7 - 35.0 g/dL [facility] Platelet 120(L) 145 - 357 x10(3)/mc L [facility] RDW Standard Deviation 42.9 37.0 - 46.0 fL [facility] RDW coefficient of variation 12.9 11.5 - 14.1 % [facility] Mean Platelet Volume 11.3 7.6 - 12.9 fL [facility] NRBC% auto 0.7 % [facility] NRBC Absolute 0.050(H) 0.000 - 0.000 x10(3)/ L [facility] Blood 05/16/2023 4:20 AM EDT 05/16/2023 4:29 AM EDT Narrative Resulting Agency Comment Spec In Lab James Agustin MD HEMATOLOGY ORDER JODIE [facility] [place] [address] * (ABNORMAL) Basic Metabolic Panel (non-fasting) (05/16/2023 4:20 AM EDT) Glucose 89 65 - 199 mg/dL [facility] Comment:Diabetes: >=200 mg/d L plus symptoms Blood Urea Nitrogen 108(H) 8 - 18 mg/dL [facility] Creatinine 4.74(H) 0.70 - 1.20 mg/dL [facility] Comment:result rechecked-[place] Sodium 132(L) 135 - 145 mmol/L [facility] Potassium 3.9 3.5 - 5.0 mmol/L [facility] Comment: Please note: ??Patients with WBC >100,000 may have falsely elevated Potassium levels. ??For accurate Potassium quantification in these patients send serum separator tube (gold top) for subsequent determinations. ??Contact the Clinical Chemistry Laboratory if there are any questions. Chloride 95(L) 98 - 107 mmol/L [facility] Carbon Dioxide 18(L) 22 - 31 mmol/L [facility] Anion Gap 19(H) 5 - 15 mmol/L [facility] Calcium 9.2 8.5 - 10.5 mg/dL [facility] Est Glomerular Filtration Rate 10(L) >=60 mL/min/1. 73 m?? [facility] Comment: This patient's estimated GFR was [...] MD CHEMISTRY ORDERABLE S Performing Organization Address City/[facility]/ZIP Co de Phone Number [facility] [place] [address] * (ABNORMAL) Iron and TIBC (05/16/2023 4:20 AM EDT) Iron 31 30 - 150 mcg/dL [facility] TIBC 259 250 - 450 mcg/dL [facility] Iron Saturation 12(L) 20 - 50 % [facility] Blood 05/16/2023 4:20 AM EDT 05/16/2023 4:29 AM EDT Narrative Resulting Agency Comment Spec In Lab Kristopher Ayoub MD CHEMISTRY ORDERABLES [facility] [place] [address] * (ABNORMAL) Basic Metabolic Panel (non-fasting) (05/15/2023 12:50 AM EDT) Glucose 101 65 - 199 mg/dL [facility] Comment:Diabetes: >=200 mg/d L plus symptoms Blood Urea Nitrogen 109(H) 8 - 18 mg/dL [facility] Creatinine 5.62(H) 0.70 - 1.20 mg/dL [facility] Comment:result rechecked-[place] Sodium 131(L) 135 - 145 mmol/L [facility] Comment:result rechecked-[place] Potassium 3.7 3.5 - 5.0 mmol/L [facility] Comment: result rechecked-[place] Please note: ??Patients with WBC >100,000 may have falsely elevated Potassium levels. ??For accurate Potassium quantification in these patients send serum separator tube (gold top) for subsequent determinations. ??Contact the Clinical Chemistry Laboratory if there are any questions. Chloride 92(L) 98 - 107 mmol/L [facility] Comment:result rechecked-[place] Carbon Dioxide 18(L) 22 - 31 mmol/L [facility] Comment:result rechecked-[place] Anion Gap 21(H) 5 - 15 mmol/L [facility] Calcium 8.9 8.5 - 10.5 mg/dL [facility] Est Glomerular Filtration Rate 8(L) >=60 mL/min/1. 73 m?? [facility] Comment: This patient's estimated GFR was [...] Lab Alirio Hudson MD CHEMISTRY ORDERABLE S [facility] [place] [address] * (ABNORMAL) Hemogram (05/15/2023 12:50 AM EDT) White Blood Cell 9.1 4.0 - 9.5 x10(3)/mc L [facility] Red Blood Cell 2.19(L) 4.00 - 5.21 x10(6)/mc L [facility] Hemoglobin 7.2(L) 11.7 - 15.5 g/dL [facility] Hematocrit 20.6(L) 35.7 - 45.8 % [facility] Mean Cell Volume 94.1 82.6 - 94.4 fL [facility] Mean Cell Hemoglobin 32.9(H) 27.1 - 32.0 pg [facility] Mean Cell Hemoglobin Concentration 35.0 31.7 - 35.0 g/dL [facility] Platelet 109(L) 145 - 357 x10(3)/mc L [facility] RDW Standard Deviation 43.6 37.0 - 46.0 fL [facility] RDW coefficient of variation 12.9 11.5 - 14.1 % [facility] Mean Platelet Volume 10.4 7.6 - 12.9 fL [facility] NRBC% auto 2.1 % [facility] NRBC Absolute 0.190(H) 0.000 - 0.000 x10(3)/ L [facility] Blood 05/15/2023 12:5 0 AM EDT 05/15/2023 12:52 AM EDT Narrative Resulting Agency Comment Spec In Lab Alirio Hudson MD HEMATOLOGY ORDERABL ES Performing Organization Address City/State/[facility] Co de Phone Number [facility] [place] [address] * (ABNORMAL) BLOOD GAS 2 VENOUS (05/15/2023 12:49 AM EDT) pH, Venous 7.33 7.32 - 7.42 [facility] PCO2, Venous 37(L) 41 - 51 mmHg [facility] PO2, Venous 34 25 - 40 mmHg [facility] Bicarbonate, Venous 19.1 mmol/L [facility] Base Excess, Venous -6.8 mmol/L [facility] Hgb Blood Gas 10.8(L) 11.7 - 15.5 g/dL [facility] Oxyhemoglobin, Venous 58.1 % [facility] Carboxyhemoglob in, Venous 0.3 % [facility] Comment: Nonsmokers: 0.5-1.5% COHB Smokers: Variable, but usually less than 10% Toxic: 20-30% COHB Lethal: Greater than 60% COHB Methemoglobin, Venous 0.6 <=1.5 % [facility] Na Whole Blood 136 135 - 145 mmol/L [facility] K Whole Blood 3.7 3.5 - 5.0 mmol/L [facility] Comment: Please note: Patients with WBC >100,000 may have falsely elevated Potassium levels. Contact the Clinical Chemistry Laboratory if there are any questions. ICa Whole Blood 1.12(L) 1.15 - 1.33 mmol/L [facility] Comment: Note: ??Total bilirubin higher than 20 mg/dL may lead to falsely low ionized calcium. CL Whole Blood 95(L) 98 - 107 mmol/L [facility] Gluc Whole Bld 101 65 - 199 mg/dL [facility] Comment:Diabetes: >=200 mg/d L plus symptoms Lactate WB 1.3 0.5 - 2.2 mmol/L [facility] Flow, Mike 1.0 LPM [facility] Blood Gas Source Venous [facility] Blood 05/15/2023 12:4 9 AM EDT 05/15/2023 12:49 AM EDT Alirio Hudson MD POINT OF CARE TEST ORDERABLES Performing Organization Address City/State/[facility] Co de Phone Number [facility] [place] [address] * US Retroperitoneal Complete (05/14/2023 3:53 PM [...] have questions, please contact the health career law clerk that requested your imaging first. ? Hayden Robledo, Staff Physician Electronically Signed Final Report ?? 05/14/2023 04:39 pm Narrative 05/14/2023 4:39 PM EDT Renal ? (Signed Final 05/14/2023 04:39 pm) PATIENT INFO: ID #: ? [id number] ?: ??[birth year] (67 yrs)(F) Name: ? PURNIMA THACKER ?Visit Date: 05/14/2023 03:44 pm PERFORMED BY: Attending: ?Meena CULP, Hayden Stafford Resident: ? Anand Camejo MD Performed By: ? Consuelo Tello RDMS Referred By: ?ALIRIO HUDSON Location: ? [place] SERVICE(S) PROVIDED: URETRO - Retroperitoneal Complete - [id number] ? [id number] INDICATIONS: [facility] COMPARISON: CT: Abdomen/Pelvis 05/11/23 RIGHT [...] 05/14/2023 04:39 pm) PATIENT INFO: ID #: [id number] : 55 (67 yrs)(F) Name: PURNIMA THACKER Visit Date: 05/14/2023 03:44 pm PERFORMED BY: Attending: Hayden Robledo MD Resident: Anand Camejo MD Performed By: Consuelo Tello RDMS Referred By: ALIRIO HUDSON Location: [place] SERVICE(S) PROVIDED: URETRO - Retroperitoneal Complete - [id number] INDICATIONS: [facility] COMPARISON: CT: Abdomen/Pelvis 05/11/23 RIGHT [...] have questions, please contact the health career law clerk that requested your imaging first. Hayden Robledo, Staff Physician Electronically Signed Final Report 05/14/2023 04:39 pm Alirio Hudson MD IMG US GEN ORDERABL ES * CK (05/14/2023 3:17 PM EDT) Creatine Kinase 123 0 - 160 unit/L [facility] Blood 05/14/2023 3:17 PM EDT 05/14/2023 3:31 PM EDT Narrative Resulting Agency Comment Spec In Lab Alirio Hudson MD CHEMISTRY ORDERABLE S Performing Organization Address City/[facility]/ZIP Co de Phone Number [facility] [place] [address] * (ABNORMAL) Uric acid (05/14/2023 3:17 PM EDT) Uric Acid 14.9(H) 2.5 - 6.5 mg/dL [facility] Blood 05/14/2023 3:17 PM EDT 05/14/2023 3:31 PM EDT Narrative Resulting Agency Comment Spec In Lab Alirio Hudson MD CHEMISTRY ORDERABLE S [facility] [place] [address] * (ABNORMAL) Osmolality (05/14/2023 3:17 PM EDT) Osmolality 311(H) 275 - 295 mOsm/kg [facility] Blood 05/14/2023 3:17 PM EDT 05/14/2023 3:31 PM EDT Narrative Resulting Agency Comment Spec In Lab Alirio Hudson MD CHEMISTRY ORDERABLE S [facility] [place] [address] * (ABNORMAL) Differential, Automated (05/14/2023 1:10 AM EDT) Neutrophil % 87.2 % [facility] Neutrophil Absolute 9.74(H) 1.70 - 6.10 x10(3)/mc L [facility] Lymph % 3.9 % [facility] Lymphocytes Abs 0.4(L) 0.9 - 3.2 x10(3)/mc L [facility] Monocyte % 7.9 % [facility] Monocyte Abs 0.9 0.3 - 0.9 x10(3)/mc L [facility] Eos % 0.0 % [facility] Eosinophils Abs 0.0 0.0 - 0.4 x10(3)/mc L [facility] Basophil % 0.1 % [facility] Baso Absolute 0.0 0.0 - 0.1 x10(3)/mc L [facility] Immature Gran % 0.90 % [facility] Comment: Immature granulocytes(IG's)percentage and absolute count will include metamyelocytes, myelocytes, and promyelocytes. Blood smears from CBCs yielding IG's will be scanned manually for concordance. If this scan disagrees with the automated IG or if promyelocytes are noted, a manual differential will be performed. Immature Gran Absolute 0.10(H) 0.00 - 0.04 x10(3)/mc L [facility] Blood 05/14/2023 1:10 AM EDT 05/14/2023 1:24 AM EDT Narrative Resulting Agency Comment Spec In Lab Bonita TOBAR HEMATOLOGY ORDERABLE S [facility] [place] [address] * (ABNORMAL) Hemogram (05/14/2023 1:10 AM EDT) White Blood Cell 11.2(H) 4.0 - 9.5 x10(3)/mc L [facility] Red Blood Cell 2.19(L) 4.00 - 5.21 x10(6)/mc L [facility] Hemoglobin 7.2(L) 11.7 - 15.5 g/dL [facility] Hematocrit 20.3(L) 35.7 - 45.8 % [facility] Mean Cell Volume 92.7 82.6 - 94.4 fL [facility] Mean Cell Hemoglobin 32.9(H) 27.1 - 32.0 pg [facility] Mean Cell Hemoglobin Concentration 35.5(H) 31.7 - 35.0 g/dL [facility] Platelet 112(L) 145 - 357 x10(3)/mc L [facility] RDW Standard Deviation 41.4 37.0 - 46.0 fL [facility] RDW coefficient of variation 12.5 11.5 - 14.1 % [facility] Mean Platelet Volume 10.4 7.6 - 12.9 fL [facility] NRBC% auto 1.5 % [facility] NRBC Absolute 0.170(H) 0.000 - 0.000 x10(3)/mc L [facility] Blood 05/14/2023 1:10 AM EDT 05/14/2023 1:24 AM EDT Narrative Resulting Agency Comment Spec In Lab Bonita TOBAR HEMATOLOGY ORDERABLE S Performing Organization Address City/State/[facility] Co de Phone Number [facility] [place] [address] * (ABNORMAL) Comprehensive metabolic panel (non-fasting) (05/14/2023 1:10 AM EDT) Glucose 120 65 - 199 mg/dL [facility] Comment:Diabetes: >=200 mg/d L plus symptoms Blood Urea Nitrogen 98(H) 8 - 18 mg/dL [facility] Creatinine 4.80(H) 0.70 - 1.20 mg/dL [facility] Comment:result rechecked-ssc Sodium 132(L) 135 - 145 mmol/L [facility] Potassium 4.1 3.5 - 5.0 mmol/L [facility] Comment: Please note: ??Patients with WBC >100,000 may have falsely elevated Potassium levels. ??For accurate Potassium quantification in these patients send serum separator tube (gold top) for subsequent determinations. ??Contact the Clinical Chemistry Laboratory if there are any questions. Chloride 94(L) 98 - 107 mmol/L [facility] Carbon Dioxide 18(L) 22 - 31 mmol/L [facility] Anion Gap 20(H) 5 - 15 mmol/L [facility] Calcium 8.5 8.5 - 10.5 mg/dL [facility] Protein, Total 5.8(L) 6.1 - 8.0 g/dL [facility] Albumin 3.6 3.2 - 5.2 g/dL [facility] Aspartate Aminotransferase 319(H) 0 - 30 unit/L [facility] Alanine Aminotransferase 437(H) 0 - 30 unit/L [facility] Alkaline Phosphatase 86 35 - 105 unit/L [facility] Bilirubin, Total 0.4 0.2 - 1.3 mg/dL [facility] Est Glomerular Filtration Rate 9(L) >=60 mL/min/1. 73 m?? [facility] Comment: This patient's estimated GFR was [...] Lab Alirio Hudson MD CHEMISTRY ORDERABLE S [facility] [place] [address] * APTT (05/13/2023 10:15 AM EDT) Partial Thromboplastin Time 27 25 - 37 sec [facility] Comment: The PTT is NOT appropriate for heparin monitoring. Use the Anti-Xa level for heparin monitoring (HEP UFH) or LMWH monitoring (HEP LMW). A PTT less than 37 seconds generally indicates adequate hemostasis. Blood 05/13/2023 10:1 5 AM EDT 05/13/2023 10:46 AM EDT Narrative Resulting Agency Comment Spec In Lab Alirio Hudson MD HEMATOLOGY ORDERABL ES Performing Organization Address [facility] de Phone Number [facility] [place] [address] * (ABNORMAL) Prothrombin Time (05/13/2023 10:15 AM EDT) Prothrombin Time 14.6(H) 9.4 - 12.5 sec [facility] International Normalization Ratio 1.3 [facility] Comment: An INR <2.0 indicates adequate [...] ORDERABL ES Performing Organization Address [facility] de Phone Number [facility] [place] [address] * EKG 12 Lead (05/13/2023 9:22 AM EDT) Ventricular rate 92 BPM MUSE SYSTEM Atrial Rate 92 BPM MUSE SYSTEM P-R Interval 140 ms MUSE SYSTEM QRS Duration 104 ms MUSE SYSTEM Q-T Interval 384 ms MUSE SYSTEM QTC Calculated (Bezet) 474 ms MUSE SYSTEM Calculated P [place] 33 degrees MUSE SYSTEM Calculated R [place] 41 degrees MUSE SYSTEM Calculated T [place] -35 degrees MUSE SYSTEM INTERPRETATION Sinus rhythm with frequent Premature ventricular complexes Septal infarct , age undetermined ST & T wave abnormality, consider lateral ischemia Abnormal ECG When compared with ECG of 12-MAY-2023 10:10, Premature ventricular complexes are now Present I personally reviewed the tracing and edited the fellows interpretation Confirmed by fellow MD Anitha, Carissa ([id number]) on 05/13/2023 3:25:30 PM Confirmed by Maxx Best ([id number]) on 05/13/2023 8:30:56 PM MUSE SYSTEM 05/13/2023 9:22 AM EDT 05/13/2023 8:30 PM EDT Alirio Hudson MD ECG ORDERABLES MUSE SYSTEM * (ABNORMAL) Differential, Automated (05/13/2023 1:15 AM EDT) Neutrophil % 88.1 % [facility] Neutrophil Absolute 7.62(H) 1.70 - 6.10 x10(3)/mc L [facility] Lymph % 3.1 % [facility] Lymphocytes Abs 0.3(L) 0.9 - 3.2 x10(3)/mc L [facility] Monocyte % 7.9 % [facility] Monocyte Abs 0.7 0.3 - 0.9 x10(3)/mc L [facility] Eos % 0.0 % [facility] Eosinophils Abs 0.0 0.0 - 0.4 x10(3)/mc L [facility] Basophil % 0.1 % [facility] Baso Absolute 0.0 0.0 - 0.1 x10(3)/mc L [facility] Immature Gran % 0.80 % [facility] Comment: Immature granulocytes(IG's)percentage and absolute count will include metamyelocytes, myelocytes, and promyelocytes. Blood smears from CBCs yielding IG's will be scanned manually for concordance. If this scan disagrees with the automated IG or if promyelocytes are noted, a manual differential will be performed. Immature Gran Absolute 0.07(H) 0.00 - 0.04 x10(3)/mc L [facility] Blood 05/13/2023 1:15 AM EDT 05/13/2023 1:29 AM EDT Narrative Resulting Agency Comment Spec In Lab Lorri TOBAR HEMATOLOGY ORDERABLE S [facility] [place] [address] * (ABNORMAL) Hemogram (05/13/2023 1:15 AM EDT) White Blood Cell 8.6 4.0 - 9.5 x10(3)/mc L [facility] Red Blood Cell 2.37(L) 4.00 - 5.21 x10(6)/mc L [facility] Hemoglobin 7.8(L) 11.7 - 15.5 g/dL [facility] Hematocrit 22.2(L) 35.7 - 45.8 % [facility] Mean Cell Volume 93.7 82.6 - 94.4 fL [facility] Mean Cell Hemoglobin 32.9(H) 27.1 - 32.0 pg [facility] Mean Cell Hemoglobin Concentration 35.1(H) 31.7 - 35.0 g/dL [facility] Platelet 130(L) 145 - 357 x10(3)/mc L [facility] RDW Standard Deviation 41.7 37.0 - 46.0 fL [facility] RDW coefficient of variation 12.5 11.5 - 14.1 % [facility] Mean Platelet Volume 10.2 7.6 - 12.9 fL [facility] NRBC% auto 0.5 % [facility] NRBC Absolute 0.040(H) 0.000 - 0.000 x10(3)/mc L [facility] Blood 05/13/2023 1:15 AM EDT 05/13/2023 1:29 AM EDT Narrative Resulting Agency Comment Spec In Lab Lorri TOBAR HEMATOLOGY ORDERABLE S [facility] [place] [address] * (ABNORMAL) Hepatic Function Panel (05/13/2023 1:15 AM EDT) Protein, Total 5.5(L) 6.1 - 8.0 g/dL [facility] Albumin 3.0(L) 3.2 - 5.2 g/dL [facility] Aspartate Aminotransferase 792(H) 0 - 30 unit/L [facility] Alanine Aminotransferase 903(H) 0 - 30 unit/L [facility] Alkaline Phosphatase 85 35 - 105 unit/L [facility] Bilirubin, Total 0.5 0.2 - 1.3 mg/dL [facility] Bilirubin, Direct 0.3 0.0 - 0.3 mg/dL [facility] Blood 05/13/2023 1:15 AM EDT 05/13/2023 1:29 AM EDT Narrative Resulting Agency Comment Spec In Lab Alirio Hudson MD CHEMISTRY ORDERABLE S Performing Organization Address City/State/[facility] Co de Phone Number [facility] [place] [address] * (ABNORMAL) Basic Metabolic Panel (non-fasting) (05/13/2023 1:15 AM EDT) Glucose 107 65 - 199 mg/dL [facility] Comment:Diabetes: >=200 mg/d L plus symptoms Blood Urea Nitrogen 82(H) 8 - 18 mg/dL [facility] Creatinine 3.15(H) 0.70 - 1.20 mg/dL [facility] Comment:result rechecked-OG Sodium 132(L) 135 - 145 mmol/L [facility] Potassium 3.8 3.5 - 5.0 mmol/L [facility] Comment: Please note: ??Patients with WBC >100,000 may have falsely elevated Potassium levels. ??For accurate Potassium quantification in these patients send serum separator tube (gold top) for subsequent determinations. ??Contact the Clinical Chemistry Laboratory if there are any questions. Chloride 95(L) 98 - 107 mmol/L [facility] Carbon Dioxide 20(L) 22 - 31 mmol/L [facility] Anion Gap 17(H) 5 - 15 mmol/L [facility] Calcium 8.3(L) 8.5 - 10.5 mg/dL [facility] Est Glomerular Filtration Rate 16(L) >=60 mL/min/1. 73 m?? [facility] Comment: This patient's estimated GFR was [...] [facility] Co de Phone Number [facility] [place] [address] * (ABNORMAL) BLOOD GAS 2 ARTERIAL (05/12/2023 3:57 PM EDT) pH, Arterial 7.39 7.35 - 7.45 [facility] PCO2, Arterial 33(L) 35 - 45 mmHg [facility] PO2, Arterial 101 85 - 104 mmHg [facility] Bicarbonate, Arterial 19.5(L) 20.0 - 26.0 mmol/L [facility] Base Excess, Arterial -5.5(L) -3.0 - 3.0 mmol/L [facility] Hgb Blood Gas 9.8(L) 11.7 - 15.5 g/dL [facility] Oxyhemoglobin, Arterial 95.2 94.0 - 97.0 % [facility] Carboxyhemoglob in, Arterial 0.2 % [facility] Comment: Nonsmokers: 0.5-1.5% COHB Smokers: Variable, but usually less than 10% Toxic: 20-30% COHB Lethal: Greater than 60% COHB Methemoglobin, Arterial 0.8 <=1.5 % [facility] Na Whole Blood 129(L) 135 - 145 mmol/L [facility] K Whole Blood 3.8 3.5 - 5.0 mmol/L [facility] Comment: Please note: Patients with WBC >100,000 may have falsely elevated Potassium levels. Contact the Clinical Chemistry Laboratory if there are any questions. ICa Whole Blood 1.05(L) 1.15 - 1.33 mmol/L [facility] Comment: Note: ??Total bilirubin higher than 20 mg/dL may lead to falsely low ionized calcium. CL Whole Blood 96(L) 98 - 107 mmol/L [facility] Gluc Whole Bld 178 65 - 199 mg/dL [facility] Comment:Diabetes: >=200 mg/d L plus symptoms. Lactate WB 1.5 0.5 - 2.2 mmol/L [facility] FIO2 Art 40 % [facility] PF Ratio Art 252 [facility] Blood 05/12/2023 3:57 PM EDT 05/12/2023 3:57 PM EDT Alirio Hudson MD POINT OF CARE TEST ORDERABLES Performing Organization Address [facility] Co de Phone Number [facility] [place] [address] * (ABNORMAL) Coox2 (05/12/2023 2:25 PM EDT) pO2, Coox 37 mmHg [facility] Hgb Blood Gas 9.5(L) 11.7 - 15.5 g/dL [facility] Oxyhemoglobin, Coox 59.9 % [facility] Carboxyhemoglo bin, Coox 0.3 % [facility] Comment: Nonsmokers: 0.5-1.5% COHB Smokers: Variable, but usually less than 10% Toxic: 20-30% COHB Lethal: Greater than 60% COHB Methemoglobin, Coox 0.7 <=1.5 % [facility] Source Coox Mixed Venous [facility] Blood 05/12/2023 2:25 PM EDT 05/12/2023 2:25 PM EDT Alirio Hudson MD POINT OF CARE TEST ORDERABLES Performing Organization Address [facility] Co de Phone Number [facility] [place] [address] * (ABNORMAL) BLOOD GAS 2 ARTERIAL (05/12/2023 2:23 PM EDT) pH, Arterial 7.37 7.35 - 7.45 [facility] PCO2, Arterial 36 35 - 45 mmHg [facility] PO2, Arterial 102 85 - 104 mmHg [facility] Bicarbonate, Arterial 20.4 20.0 - 26.0 mmol/L [facility] Base Excess, Arterial -4.8(L) -3.0 - 3.0 mmol/L [facility] Hgb Blood Gas 12.7 11.7 - 15.5 g/dL [facility] Oxyhemoglobin, Arterial 95.4 94.0 - 97.0 % [facility] Carboxyhemoglob in, Arterial 0.3 % [facility] Comment: Nonsmokers: 0.5-1.5% COHB Smokers: Variable, but usually less than 10% Toxic: 20-30% COHB Lethal: Greater than 60% COHB Methemoglobin, Arterial 0.7 <=1.5 % [facility] Na Whole Blood 129(L) 135 - 145 mmol/L [facility] K Whole Blood 3.7 3.5 - 5.0 mmol/L [facility] Comment: Please note: Patients with WBC >100,000 may have falsely elevated Potassium levels. Contact the Clinical Chemistry Laboratory if there are any questions. ICa Whole Blood 1.05(L) 1.15 - 1.33 mmol/L [facility] Comment: Note: ??Total bilirubin higher than 20 mg/dL may lead to falsely low ionized calcium. CL Whole Blood 95(L) 98 - 107 mmol/L [facility] Gluc Whole Bld 168 65 - 199 mg/dL [facility] Comment:Diabetes: >=200 mg/d L plus symptoms. Lactate WB 1.8 0.5 - 2.2 mmol/L [facility] FIO2 Art 40 % [facility] PF Ratio Art 255 [facility] Blood 05/12/2023 2:23 PM EDT 05/12/2023 2:23 PM EDT Alirio Hudson MD POINT OF CARE TEST ORDERABLES [facility] [place] [address] * (ABNORMAL) Troponin (05/12/2023 2:05 PM EDT) Troponin-T, High Sensitivity 1,022(H) <=14 ng/L [facility] Comment: This patient's troponin T concentration [...] troponin value can be found in the [facility] Test Catalog Troponin - [facility] Test Catalog Reference: Fourth [place] Definition of Myocardial Infarction. Journal of the [place] [employer] 2018;72:3266-7852 Blood 05/12/2023 2:05 PM EDT 05/12/2023 2:14 PM EDT Narrative Resulting Agency Comment Spec In Lab Alirio Hudson MD CHEMISTRY ORDERABLE S [facility] [place] [address] * (ABNORMAL) Hemoglobin (05/12/2023 2:05 PM EDT) Hemoglobin 8.5(L) 11.7 - 15.5 g/dL [facility] Blood 05/12/2023 2:05 PM EDT 05/12/2023 2:14 PM EDT Narrative Resulting Agency Comment Spec In Lab Alirio Hudson MD HEMATOLOGY ORDERABL ES Performing Organization Address [facility] Co de Phone Number [facility] [place] [address] * Potassium (05/12/2023 2:05 PM EDT) Potassium 3.9 3.5 - 5.0 mmol/L [facility] Comment: Please note: ??Patients with WBC [...] MD CHEMISTRY ORDERABLE S Performing Organization Address [facility] Co de Phone Number [facility] [place] [address] * (ABNORMAL) BLOOD GAS 2 ARTERIAL (05/12/2023 11:05 AM EDT) pH, Arterial 7.34(L) 7.35 - 7.45 [facility] PCO2, Arterial 42 35 - 45 mmHg [facility] PO2, Arterial 73(L) 85 - 104 mmHg [facility] Bicarbonate, Arterial 22.1 20.0 - 26.0 mmol/L [facility] Base Excess, Arterial -3.6(L) -3.0 - 3.0 mmol/L [facility] Hgb Blood Gas 9.3(L) 11.7 - 15.5 g/dL [facility] Oxyhemoglobin, Arterial 89.3(L) 94.0 - 97.0 % [facility] Carboxyhemoglob in, Arterial 0.2 % [facility] Comment: Nonsmokers: 0.5-1.5% COHB Smokers: Variable, but usually less than 10% Toxic: 20-30% COHB Lethal: Greater than 60% COHB Methemoglobin, Arterial 0.9 <=1.5 % [facility] Na Whole Blood 131(L) 135 - 145 mmol/L [facility] K Whole Blood 3.8 3.5 - 5.0 mmol/L [facility] Comment: Please note: Patients with WBC >100,000 may have falsely elevated Potassium levels. Contact the Clinical Chemistry Laboratory if there are any questions. ICa Whole Blood 1.04(L) 1.15 - 1.33 mmol/L [facility] Comment: Note: ??Total bilirubin higher than 20 mg/dL may lead to falsely low ionized calcium. CL Whole Blood 96(L) 98 - 107 mmol/L [facility] Gluc Whole Bld 152 65 - 199 mg/dL [facility] Comment:Diabetes: >=200 mg/d L plus symptoms. Lactate WB 2.8(H) 0.5 - 2.2 mmol/L [facility] FIO2 Art 40 % [facility] PF Ratio Art 182 [facility] Blood 05/12/2023 11:0 5 AM EDT 05/12/2023 11:05 AM EDT Alirio Hudson MD POINT OF CARE TEST ORDERABLES [facility] [place] [address] * (ABNORMAL) BLOOD GAS 2 ARTERIAL (05/12/2023 10:14 AM EDT) pH, Arterial 7.18(Criti gabrielle) 7.35 - 7.45 [facility] Comment:Noted by fretted instruments inspector. PCO2, Arterial 45 35 - 45 mmHg [facility] PO2, Arterial 186(H) 85 - 104 mmHg [facility] Bicarbonate, Arterial 16.2(L) 20.0 - 26.0 mmol/L [facility] Base Excess, Arterial -12.2(L) -3.0 - 3.0 mmol/L [facility] Hgb Blood Gas 10.0(L) 11.7 - 15.5 g/dL [facility] Oxyhemoglobin, Arterial 97.0 94.0 - 97.0 % [facility] Carboxyhemoglob in, Arterial 0.2 % [facility] Comment: Nonsmokers: 0.5-1.5% COHB Smokers: Variable, but usually less than 10% Toxic: 20-30% COHB Lethal: Greater than 60% COHB Methemoglobin, Arterial 0.9 <=1.5 % [facility] Na Whole Blood 129(L) 135 - 145 mmol/L [facility] K Whole Blood 3.6 3.5 - 5.0 mmol/L [facility] Comment: Please note: Patients with WBC >100,000 may have falsely elevated Potassium levels. Contact the Clinical Chemistry Laboratory if there are any questions. ICa Whole Blood 1.10(L) 1.15 - 1.33 mmol/L [facility] Comment: Note: ??Total bilirubin higher than 20 mg/dL may lead to falsely low ionized calcium. CL Whole Blood 97(L) 98 - 107 mmol/L [facility] Gluc Whole Bld 161 65 - 199 mg/dL [facility] Comment:Diabetes: >=200 mg/d L plus symptoms. Lactate WB 3.3(H) 0.5 - 2.2 mmol/L [facility] FIO2 Art 100 % [facility] PF Ratio Art 186 [facility] Blood 05/12/2023 10:1 4 AM EDT 05/12/2023 10:14 AM EDT Alirio Hudson MD POINT OF CARE TEST ORDERABLES Performing Organization Address City/State/[facility] Co de Phone Number [facility] [place] [address] * EKG 12 Lead (05/12/2023 10:10 AM EDT) Ventricular rate 116 BPM MUSE SYSTEM Atrial Rate 116 BPM MUSE SYSTEM P-R Interval 158 ms MUSE SYSTEM QRS Duration 114 ms MUSE SYSTEM Q-T Interval 348 ms MUSE SYSTEM QTC Calculated (Bezet) 483 ms MUSE SYSTEM Calculated P [place] 37 degrees MUSE SYSTEM Calculated R [place] 31 degrees MUSE SYSTEM Calculated T [place] -138 degrees MUSE SYSTEM INTERPRETATION Sinus tachycardia [...] interpretation Confirmed by fellow MD Anuja, Jim ([id number]) on 05/12/2023 1:04:20 PM Confirmed by MD Mono, Eleni ([id number]) on 05/12/2023 9:28:34 PM MUSE SYSTEM 05/12/2023 [...] have questions please contact the health career law clerk that requested your imaging first. ? Electronically signed by: Chyna Johnson MD, [facility] ??([phone]), at 05/12/2023 10:08 AM Narrative 05/12/2023 10:08 AM EDT EXAMINATION: XR CHEST ONE VIEW CLINICAL HISTORY: Post TAVR TECHNIQUE: 1 view of the chest COMPARISON: Chest radiograph from earlier today FINDINGS: Interval placement of endotracheal tube with tip terminating 2 cm above the shira. Interval placement of enteric tube projecting along the expected course of the esophagus and outside the idyat-di-xvgh. Interval retraction of right IJ approach pulmonary [...] expected course ofthe esophagus and outside the monol-dp-tbgt. Interval retraction of right IJ approach pulmonary [...] tube with tip 2 cm above the shria,recommend retraction by about 1-2 cm. 4. Satisfactory [...] who have questions please contactthe health career law clerk that requested your imaging first. Electronically signed by: Chyna Johnson MD, [facility]([phone]), at 05/12/2023 10:08 AM Alirio Hudson MD [...] 1955 ? Height: 154 cm ? Account: [id number] Age: 67 yrs ? Weight: 75 kg [...] mL/m2. POST TAVR: Normal function of the qqkvj-dn-ehwck prosthesis. See below for hemodynamic parameters. Slight improvement in left and right ventricular systolic function. LVEF now 20-25%. No pericardial effusion. See report for additional findings. Procedure Limited - 25102. Doppler - 50672. Color Doppler - 50354. Left Ventricle Left ventricle is of normal [...] Date: 307:33 AMBP: 96/63 mmHg Patient Location: [address] : 1955 Height: 154 cm Account: [id number] Age: 67 yrs Weight: 75 kg Gender: [...] 28mL/m2. POST TAVR: Normal function of the xycki-yl-wijzw prosthesis. See belowfor hemodynamic parameters. Slight improvement in left and right ventricularsystolic function. LVEF now 20-25%. No pericardial effusion. See report for additional findings. Procedure Limited - 65823. Doppler - 23466. Color Doppler - 57704. Left Ventricle Left ventricle is of normal [...] Modality Other Narrative 05/12/2023 2:37 PM EDT ?[facility] ? Cardiac Catheterization/Intervention Report ? Patient Name: Kirstie, Purnima M. ? Procedure Date: 05/12/2023 ? A #: [id number] ? Primary Physician: Antelmo Sharma ? Case #: [id number] ? File Name: [id number] ? Catheterization Order Number: [id number] ? [facility] ? Final Report [place], [place] ? Patient Name: ? Purnima Thacker ? ID#: ?[id number] ? : ?1955 ? Procedure Date: ? May 12, 2023 ? Case #: ? [id number] ? Room: ? 6 ? Case Physicians: ?Antelmo hSarma M.D. ?Start: ?08:03 ?Alirio Hudson M.D. ?Admission: ??05/08/2023 ?Lynda Mcgowan M.D. ? Discharge: ??05/22/2023 ?Fellow: ? Kristied Adair Tejeda ? Referring Physician: ??Mario Alberto Chin M.D. ? Procedures: ?* Coronary Angiography ?* Left Heart Catheterization ?* Coronary Stent Insertion ?* Transcatheter Aortic Valve Replacement ?* Vascular Closure Device Deployment ?* Temporary Pacemaker Insertion In Guide Dog Mobility Instructor ?* Endotracheal Intubation By Non-Cath Physician ?* [...] was designated as ASA Class IV. The [facility] clinical ?frailty scale is 4: Vulnerable. [...] guide. ??A premounted 4.00 x 30 mm Sikes [place] (MINNA) was ? deployed with a maximum [...] calculated STS risk score was 30.1%. A chszh-at-vjpey ?procedure was performed on the pre-existing bioprosthetic stented ?prosthesis. The priority of the uocti-br-jmnbh procedure was Elective. ?The procedure was performed under Moderate sedation performed by Lynda Ramires ?Adair Mcgowan (see anesthesia report for additional details). Alirio Powell ?Adair Hudson participated in the case (see Cardiac Surgery report for ?additional details). ?The TAVR sheath was a 14 Fr Corona eSheath Introducer and the access ?site was femoral. Rapid ventricular pacing was performed. ?An Corona Lia 3 Ultra RESILIA 23 mm THV (s/l=[id number]) transcatheter ?valve was inserted using standard technique. [...] to nor was it given in the ?crown and bridge dental lab technician. ?Recommended anti-platelet/anti-thrombotic regimen: ?Continue aspirin 81 mg daily for indefinitely. ?These recommendations are made at the time of the intervention. Patient ?and provider preferences or a changing clinical situation may require ?modification of this regimen. Consult [facility] for ?questions. ? Conclusions: ?* [...] regimen. ? Comments: ?Successful right transfemoral TAVR Otejz-oj-Qqjjm with a 23 mm Lai 3 ?THV. [...] insertion-coronary, access site angiography, ?temporary pacemaker in crown and bridge dental lab technician, intubation-non cath physician, vascular ?closure device, transthoracic echo ??and TAVR. Dr. Alirio Hudson M.D. ?performed the left heart catheterization, access site angiography, ?temporary pacemaker in crown and bridge dental lab technician, vascular closure device, transthoracic ?echo , TAVR and CPR during cath. Dr. Lynda Mcgowan M.D. performed the ABG, ?anesthesia and intubation-non cath physician. ? Antelmo Sharma M.D. ? Electronically Signed by: Antelmo Sharma M.D. ? Report Finalized: 05/12/2023 ??14:31 ? Report Last Ammended: 07/01/2023 ??11:30 ? Procedure Note Antelmo Sharma MD - 07/01/2023 [facility] Cardiac Catheterization/Intervention Report Patient Name: Purnima Thacker Procedure Date: 05/12/2023 A #: [id number] Primary Physician: Antelmo Sharma Case #: [id number] File Name: [id number] Catheterization Order Number: [id number] [facility] FinalReport [place], [place] Patient Name: Purnima Thacker ID#:[id number] :1955 Procedure Date: May 12, 2023 Case #: [id number] Room: 6 Case Physicians: Antelmo Sharma M.D. Start: 08:03 Alirio Hudson M.D. Admission:05/08/2023 Lynda Mcgowan M.D. Discharge:05/22/2023 Fellow: Rebekah Tejeda M.D. Referring Physician: Mario Alberto Chin M.D. Procedures: * Coronary Angiography * Left Heart Catheterization * Coronary Stent Insertion * Transcatheter Aortic Valve Replacement * Vascular Closure Device Deployment * Temporary Pacemaker Insertion In Guide Dog Mobility Instructor * Endotracheal Intubation By Non-Cath Physician * [...] A premounted 4.00 x 30 mm [place]ils [place] (MINNA) was deployed with a maximum inflation [...] calculated STS risk score was 30.1%. A yyeux-ge-vazyy procedure was performed on the pre-existing bioprosthetic stented prosthesis. The priority of the kdorc-ch-qtzim procedure wasElective. The procedure was performed under Moderate sedation performed byLynda Mcgowan M.D. (see anesthesia report for additional details). Alirio Hudson M.D. participated in the case (see Cardiac Surgery reportfor additional details). The TAVR sheath was a 14 Fr Corona eSheath Introducer and theaccess site was femoral. Rapid ventricular pacing was performed. An Corona Lai 3 Ultra RESILIA 23 mm THV (s/q=[id number])transcatheter valve was inserted using standard technique. The [...] prior to nor was it given inthe crown and bridge dental lab technician. Recommended anti-platelet/anti-thrombotic regimen: Continue aspirin 81 mg daily for indefinitely. These recommendations are made at the time of the intervention.Patient and provider preferences or a changing clinical situation mayrequire modification of this regimen. Consult [facility]iology[facility] questions. Conclusions: * Nonobstructive disease [...] this regimen. Comments: Successful right transfemoral TAVR Sdieo-xo-Mbyxn with a 23 mmSapien 3 THV. We [...] insertion-coronary, access site angiography, temporary pacemaker in crown and bridge dental lab technician, intubation-non cath physician,vascular closure device, transthoracic echo and TAVR. Dr. Alirio Hudson M.D. performed the left heart catheterization, access site angiography, temporary pacemaker in crown and bridge dental lab technician, vascular closure device,transthoracic echo , [...] pH, POC 7.20(Crit ical) 7.35 - 7.45 [facility] Comment:Critical value OK, C C Lab. pCO2, POC 42 35 - 45 mmHg [facility] pO2, POC 260(H) 85 - 104 mmHg [facility] Base Excess, POC -11.0(L) -3.0 - 3.0 mmol/L [facility] Bicarbonate, POC 16.7(L) 20.0 - 26.0 mmol/L [facility] Sodium, POC 129(L) 135 - 145 mmol/L [facility] POC Potassium 3.8 3.5 - 5.0 mmol/L [facility] Ionized Calcium, POC 1.12(L) 1.15 - 1.33 mmol/L [facility] POC Hematocrit 23.0(L) 34.0 - 45.0 % [facility] POC Calc Hgb 7.8(L) 11.2 - 15.7 g/dL [facility] Comment:The calculation of h emoglobin from hematocrit assumes a normal MCHC. POC Bgas Loc CC Lab [facility] Blood 05/12/2023 8:50 AM EDT 05/13/2023 12:00 PM EDT Alirio Hudson MD CHEMISTRY ORDERABLE S [facility] [place] [address] * (ABNORMAL) Point of Care Blood Gas Historical (05/12/2023 8:10 AM EDT) pH, POC 7.27(Crit ical) 7.35 - 7.45 [facility] Comment:Critical value OK, C C Lab. pCO2, POC 37 35 - 45 mmHg [facility] pO2, POC 29(Critic al) 85 - 104 mmHg [facility] Comment:Critical value OK, C C Lab. Base Excess, POC -10.0(L) -3.0 - 3.0 mmol/L [facility] Bicarbonate, POC 16.7(L) 20.0 - 26.0 mmol/L [facility] Sodium, POC 123(L) 135 - 145 mmol/L [facility] POC Potassium 4.0 3.5 - 5.0 mmol/L [facility] Ionized Calcium, POC 1.12(L) 1.15 - 1.33 mmol/L [facility] POC Hematocrit 27.0(L) 34.0 - 45.0 % [facility] POC Calc Hgb 9.2(L) 11.2 - 15.7 g/dL [facility] Comment:The calculation of h emoglobin from hematocrit assumes a normal MCHC. POC Bgas Loc CC Lab [facility] Blood 05/12/2023 8:10 AM EDT 05/13/2023 12:00 PM EDT Alirio Hudson MD CHEMISTRY ORDERABLE S [facility] [place] [address] * (ABNORMAL) Lactate, whole blood, send to lab ([facility] (05/12/2023 7:00 AM EDT) Lactate WB 2.4(H) 0.5 - 2.2 mmol/L [facility] Blood 05/12/2023 7:00 AM EDT 05/12/2023 7:09 AM EDT Narrative Resulting Agency Comment Spec In Lab Radha Hollins MD CHEMISTRY ORDERABL ES Performing Organization Address City/[facility]/ZIP Co de Phone Number [facility] [place] [address] * (ABNORMAL) Comprehensive metabolic panel (non-fasting) (05/12/2023 6:00 AM EDT) Glucose 167 65 - 199 mg/dL [facility] Comment:Diabetes: >=200 mg/d L plus symptoms Blood Urea Nitrogen 67(H) 8 - 18 mg/dL [facility] Creatinine 2.01(H) 0.70 - 1.20 mg/dL [facility] Sodium 131(L) 135 - 145 mmol/L [facility] Potassium 4.3 3.5 - 5.0 mmol/L [facility] Comment: Please note: ??Patients with WBC >100,000 may have falsely elevated Potassium levels. ??For accurate Potassium quantification in these patients send serum separator tube (gold top) for subsequent determinations. ??Contact the Clinical Chemistry Laboratory if there are any questions. Chloride 97(L) 98 - 107 mmol/L [facility] Carbon Dioxide 14(L) 22 - 31 mmol/L [facility] Anion Gap 20(H) 5 - 15 mmol/L [facility] Calcium 8.6 8.5 - 10.5 mg/dL [facility] Protein, Total 6.3 6.1 - 8.0 g/dL [facility] Albumin 3.5 3.2 - 5.2 g/dL [facility] Aspartate Aminotransferase 1,435(H) 0 - 30 unit/L [facility] Alanine Aminotransferase 1,174(H) 0 - 30 unit/L [facility] Alkaline Phosphatase 100 35 - 105 unit/L [facility] Bilirubin, Total 0.9 0.2 - 1.3 mg/dL [facility] Est Glomerular Filtration Rate 27(L) >=60 mL/min/1. 73 m?? [facility] Comment: This patient's estimated GFR was [...] MD CHEMISTRY ORDERABL ES Performing Organization Address City/State/[facility] Co de Phone Number [facility] [place] [address] * (ABNORMAL) Coox2 (05/12/2023 5:08 AM EDT) pO2, Coox 24 mmHg [facility] Hgb Blood Gas 10.4(L) 11.7 - 15.5 g/dL [facility] Oxyhemoglobin, Coox 30.7 % [facility] Carboxyhemoglo bin, Coox 0.3 % [facility] Comment: Nonsmokers: 0.5-1.5% COHB Smokers: Variable, but usually less than 10% Toxic: 20-30% COHB Lethal: Greater than 60% COHB Methemoglobin, Coox 0.8 <=1.5 % [facility] Source Coox Mixed Venous [facility] Blood 05/12/2023 5:08 AM EDT 05/12/2023 5:08 AM EDT Radha Hollins MD POINT OF CARE TEST ORDERABLES Performing Organization Address [facility] Co de Phone Number [facility] [place] [address] * (ABNORMAL) Coox2 (05/12/2023 3:21 AM EDT) pO2, Coox 25 mmHg [facility] Hgb Blood Gas 10.8(L) 11.7 - 15.5 g/dL [facility] Oxyhemoglobin, Coox 32.7 % [facility] Carboxyhemoglo bin, Coox 0.3 % [facility] Comment: Nonsmokers: 0.5-1.5% COHB Smokers: Variable, but usually less than 10% Toxic: 20-30% COHB Lethal: Greater than 60% COHB Methemoglobin, Coox 0.7 <=1.5 % [facility] Source Coox Mixed Venous [facility] Blood 05/12/2023 3:21 AM EDT 05/12/2023 3:21 AM EDT Radha Hollins MD POINT OF CARE TEST ORDERABLES Performing Organization Address [facility] de Phone Number [facility] [place] [address] * (ABNORMAL) BLOOD GAS 2 ARTERIAL (05/12/2023 3:18 AM EDT) pH, Arterial 7.34(L) 7.35 - 7.45 [facility] PCO2, Arterial 30(L) 35 - 45 mmHg [facility] PO2, Arterial 72(L) 85 - 104 mmHg [facility] Bicarbonate, Arterial 16.0(L) 20.0 - 26.0 mmol/L [facility] Base Excess, Arterial -9.8(L) -3.0 - 3.0 mmol/L [facility] Hgb Blood Gas 11.0(L) 11.7 - 15.5 g/dL [facility] Oxyhemoglobin, Arterial 89.8(L) 94.0 - 97.0 % [facility] Carboxyhemoglob in, Arterial 0.3 % [facility] Comment: Nonsmokers: 0.5-1.5% COHB Smokers: Variable, but usually less than 10% Toxic: 20-30% COHB Lethal: Greater than 60% COHB Methemoglobin, Arterial 0.7 <=1.5 % [facility] Na Whole Blood 131(L) 135 - 145 mmol/L [facility] K Whole Blood 4.2 3.5 - 5.0 mmol/L [facility] Comment: Please note: Patients with WBC >100,000 may have falsely elevated Potassium levels. Contact the Clinical Chemistry Laboratory if there are any questions. ICa Whole Blood 1.12(L) 1.15 - 1.33 mmol/L [facility] Comment: Note: ??Total bilirubin higher than 20 mg/dL may lead to falsely low ionized calcium. CL Whole Blood 100 98 - 107 mmol/L [facility] Gluc Whole Bld 160 65 - 199 mg/dL [facility] Comment:Diabetes: >=200 mg/d L plus symptoms. Lactate WB 2.7(H) 0.5 - 2.2 mmol/L [facility] Flow Art 5.0 LPM [facility] Blood 05/12/2023 3:18 AM EDT 05/12/2023 3:18 AM EDT Radha Hollins MD POINT OF CARE TEST ORDERABLES Performing Organization Address City/State/[facility] Co de Phone Number [facility] [place] [address] * (ABNORMAL) Coox2 (05/12/2023 1:14 AM EDT) pO2, Coox 28 mmHg [facility] Hgb Blood Gas 10.9(L) 11.7 - 15.5 g/dL [facility] Oxyhemoglobin, Coox 37.3 % [facility] Carboxyhemoglo bin, Coox 0.3 % [facility] Comment: Nonsmokers: 0.5-1.5% COHB Smokers: Variable, but usually less than 10% Toxic: 20-30% COHB Lethal: Greater than 60% COHB Methemoglobin, Coox 0.5 <=1.5 % [facility] Source Coox Mixed Venous [facility] Blood 05/12/2023 1:14 AM EDT 05/12/2023 1:14 AM EDT Radha Hollins MD POINT OF CARE TEST ORDERABLES [facility] [place] [address] * (ABNORMAL) BLOOD GAS 2 ARTERIAL (05/12/2023 1:06 AM EDT) pH, Arterial 7.34(L) 7.35 - 7.45 [facility] PCO2, Arterial 30(L) 35 - 45 mmHg [facility] PO2, Arterial 81(L) 85 - 104 mmHg [facility] Bicarbonate, Arterial 15.7(L) 20.0 - 26.0 mmol/L [facility] Base Excess, Arterial -10.1(L) -3.0 - 3.0 mmol/L [facility] Hgb Blood Gas 11.0(L) 11.7 - 15.5 g/dL [facility] Oxyhemoglobin, Arterial 92.3(L) 94.0 - 97.0 % [facility] Carboxyhemoglob in, Arterial 0.2 % [facility] Comment: Nonsmokers: 0.5-1.5% COHB Smokers: Variable, but usually less than 10% Toxic: 20-30% COHB Lethal: Greater than 60% COHB Methemoglobin, Arterial 0.6 <=1.5 % [facility] [facility] Na Whole Blood 131(L) 135 - 145 mmol/L [facility] K Whole Blood 4.2 3.5 - 5.0 mmol/L [facility] Comment: Please note: Patients with WBC >100,000 may have falsely elevated Potassium levels. Contact the Clinical Chemistry Laboratory if there are any questions. ICa Whole Blood 1.13(L) 1.15 - 1.33 mmol/L [facility] Comment: Note: ??Total bilirubin higher than 20 mg/dL may lead to falsely low ionized calcium. CL Whole Blood 99 98 - 107 mmol/L [facility] Gluc Whole Bld 132 65 - 199 mg/dL [facility] Comment:Diabetes: >=200 mg/d L plus symptoms. Lactate WB 2.7(H) 0.5 - 2.2 mmol/L [facility] Flow Art 5.0 LPM [facility] Blood 05/12/2023 1:06 AM EDT 05/12/2023 1:06 AM EDT Radha Hollins MD POINT OF CARE TEST ORDERABLES [facility] [place] [address] * (ABNORMAL) Differential, Automated (05/12/2023 1:05 AM EDT) Neutrophil % 83.3 % [facility] Neutrophil Absolute 7.49(H) 1.70 - 6.10 x10(3)/mc L [facility] Lymph % 7.1 % [facility] Lymphocytes Abs 0.6(L) 0.9 - 3.2 x10(3)/mc L [facility] Monocyte % 8.9 % [facility] Monocyte Abs 0.8 0.3 - 0.9 x10(3)/mc L [facility] Eos % 0.0 % [facility] Eosinophils Abs 0.0 0.0 - 0.4 x10(3)/mc L [facility] Basophil % 0.1 % [facility] Baso Absolute 0.0 0.0 - 0.1 x10(3)/mc L [facility] Immature Gran % 0.60 % [facility] Comment: Immature granulocytes(IG's)percentage and absolute count will include metamyelocytes, myelocytes, and promyelocytes. Blood smears from CBCs yielding IG's will be scanned manually for concordance. If this scan disagrees with the automated IG or if promyelocytes are noted, a manual differential will be performed. Immature Gran Absolute 0.05(H) 0.00 - 0.04 x10(3)/mc L [facility] Blood 05/12/2023 1:05 AM EDT 05/12/2023 1:15 AM EDT Narrative Resulting Agency Comment Spec In Lab Gianni Fletcher MD HEMATOLOGY ORDERABLE S [facility] [place] [address] * (ABNORMAL) Hemogram (05/12/2023 1:05 AM EDT) White Blood Cell 9.0 4.0 - 9.5 x10(3)/mc L [facility] Red Blood Cell 3.01(L) 4.00 - 5.21 x10(6)/mc L [facility] Hemoglobin 9.8(L) 11.7 - 15.5 g/dL [facility] Hematocrit 28.7(L) 35.7 - 45.8 % [facility] Mean Cell Volume 95.3(H) 82.6 - 94.4 fL [facility] Mean Cell Hemoglobin 32.6(H) 27.1 - 32.0 pg [facility] Mean Cell Hemoglobin Concentration 34.1 31.7 - 35.0 g/dL [facility] Platelet 186 145 - 357 x10(3)/mc L [facility] RDW Standard Deviation 43.7 37.0 - 46.0 fL [facility] RDW coefficient of variation 12.7 11.5 - 14.1 % [facility] Mean Platelet Volume 10.3 7.6 - 12.9 fL [facility] NRBC% auto 0.0 % [facility] NRBC Absolute 0.000 0.000 - 0.000 x10(3)/ L [facility] Blood 05/12/2023 1:05 AM EDT 05/12/2023 1:15 AM EDT Narrative Resulting Agency Comment Spec In Lab Gianni Fletcher MD HEMATOLOGY ORDERABLE S [facility] [place] [address] * (ABNORMAL) Comprehensive metabolic panel (non-fasting) (05/12/2023 1:05 AM EDT) Glucose 141 65 - 199 mg/dL [facility] Comment:Diabetes: >=200 mg/d L plus symptoms Blood Urea Nitrogen 63(H) 8 - 18 mg/dL [facility] Creatinine 1.86(H) 0.70 - 1.20 mg/dL [facility] Sodium 131(L) 135 - 145 mmol/L [facility] Potassium 4.4 3.5 - 5.0 mmol/L [facility] Comment: Please note: ??Patients with WBC >100,000 may have falsely elevated Potassium levels. ??For accurate Potassium quantification in these patients send serum separator tube (gold top) for subsequent determinations. ??Contact the Clinical Chemistry Laboratory if there are any questions. Chloride 96(L) 98 - 107 mmol/L [facility] Carbon Dioxide 14(L) 22 - 31 mmol/L [facility] Anion Gap 21(H) 5 - 15 mmol/L [facility] Calcium 9.0 8.5 - 10.5 mg/dL [facility] Protein, Total 6.6 6.1 - 8.0 g/dL [facility] Albumin 3.9 3.2 - 5.2 g/dL [facility] Aspartate Aminotransferase 1,227(H) 0 - 30 unit/L [facility] Alanine Aminotransferase 1,097(H) 0 - 30 unit/L [facility] Alkaline Phosphatase 108(H) 35 - 105 unit/L [facility] Bilirubin, Total 1.0 0.2 - 1.3 mg/dL [facility] Est Glomerular Filtration Rate 29(L) >=60 mL/min/1. 73 m?? [facility] Comment: This patient's estimated GFR was [...] Lab Radha Hollins MD CHEMISTRY ORDERABL ES [facility] [place] [address] * XR Chest One View (05/12/2023 1:00 [...] have questions please contact the health career law clerk that requested your imaging first. ? Narrative [...] who have questions please contactthe health career law clerk that requested your imaging first. Radha Hollins MD IMG DX ORDERABLES * (ABNORMAL) Coox2 (05/12/2023 12:30 AM EDT) pO2, Coox 22 mmHg [facility] Hgb Blood Gas 10.9(L) 11.7 - 15.5 g/dL [facility] Oxyhemoglobin, Coox 25.1 % [facility] Carboxyhemoglo bin, Coox 0.3 % [facility] Comment: Nonsmokers: 0.5-1.5% COHB Smokers: Variable, but usually less than 10% Toxic: 20-30% COHB Lethal: Greater than 60% COHB Methemoglobin, Coox 1.4 <=1.5 % [facility] Source Coox Mixed Venous [facility] Blood 05/12/2023 12:3 0 AM EDT 05/12/2023 12:30 AM EDT Radha Hollins MD POINT OF CARE TEST ORDERABLES [facility] [place] [address] * XR Chest One View (05/11/2023 11:45 [...] have questions please contact the health career law clerk that requested your imaging first. ? Narrative [...] who have questions please contactthe health career law clerk that requested your imaging first. Radha Hollins MD IMG DX ORDERABLES * (ABNORMAL) Lactate, whole blood, [place] lab [place] (05/11/2023 7:40 PM EDT) Lactate WB 4.8(Critic al) 0.5 - 2.2 mmol/L [facility] Comment:Called by: NIKI, Read back by: Magdalena Baires, Date/Time:05/11/23 19:54. Blood 05/11/2023 7:40 PM EDT 05/11/2023 7:49 PM EDT Narrative Resulting Agency Comment Spec In Lab Radha Hollins MD CHEMISTRY ORDERABL ES Performing Organization Address [facility] Co de Phone Number [facility] [place] [address] * Urine culture (05/11/2023 7:22 PM EDT) Urine Culture 50,000-99,000 cfu/ml Normal mucosal herman Susceptibilit y testing not routinely performed for Coagulase Negative Staphylococcu s species and other Gram Positive organisms from urine. [facility] Clean Catch Urine 05/11/2023 7:22 PM EDT 05/11/2023 8:50 PM EDT Narrative Resulting Agency Comment Spec In Lab Brody Dale Eusebio OSBORN MICROBIOLOGY - GENE RAL ORDERABLES Performing Organization Address [facility] de Phone Number [facility] [place] [address] * (ABNORMAL) Urinalysis Microscopic Exam (05/11/2023 7:22 PM EDT) RBC, Urine 2 0 - 4 /HPF [facility] WBC, Urine >100(H) 0 - 5 /HPF [facility] Bacteria, Urine Occasional (A) None /HPF [facility] Squamous Epithelial Cells Raw Data, Urine 5(H) <=4 /HPF [facility] Hyaline Casts, Urine 3(H) 0 - 2 /LPF [facility] Clean Catch Urine 05/11/2023 7:22 PM EDT 05/11/2023 7:31 PM EDT Narrative Resulting Agency Comment Spec In Lab Brody Kaplan APRN URINE ORDERABLES Performing Organization Address [facility] Co de Phone Number [facility] [place] [address] * (ABNORMAL) Urinalysis with reflex Culture (05/11/2023 7:22 PM EDT) Glucose, Urine Dipstick Negative Negative mg/dL [facility] Protein, Urine Dipstick Trace(A) Negative mg/dL [facility] Bilirubin, Urine Dipstick Negative Negative mg/dL [facility] Comment: Clinical correlation required for positive Urine Bilirubin results as false positive may occur with some drugs and drug related products. If a false positive is suspected a serum total bilirubin should be considered if clinically indicated. Urobilinogen, Urine Dipstick Normal Normal mg/dL [facility] pH, Urn (dipstick) 5.0 5.0 - 8.0 [facility] Blood, Urine Dipstick Trace(A) Negative mg/dL [facility] Ketone, Urine Dipstick Negative Negative mg/dL [facility] Nitrite, Urine Dipstick Negative Negative [facility] Leukocytes, Urine Dipstick Moderate(A) Negative mcL [facility] Appearance, Urine Dipstick Cloudy(A) Clear [facility] Specific [place] Urine Automated >=1.030(A) 1.005 - 1.030 [facility] Color, Urine Dipstick Yellow Yellow [facility] Reflex to Culture Yes [facility] Clean Catch Urine 05/11/2023 7:22 PM EDT 05/11/2023 7:31 PM EDT Narrative Resulting Agency Comment Spec In Lab Brody Kaplan APRN URINE ORDERABLES Performing Organization Address [facility] Co de Phone Number [facility] [place] [address] * (ABNORMAL) pro-Brain Natriuretic Peptide (05/11/2023 7:11 PM EDT) NT-proBNP >35,000(H) <=124 pg/mL [facility] Blood 05/11/2023 7:11 PM EDT 05/11/2023 7:26 PM EDT Narrative Resulting Agency Comment Spec In Lab Radha Hollins MD CHEMISTRY ORDERABL ES Performing Organization Address City/[facility] Co de Phone Number [facility] [place] [address] * (ABNORMAL) Lactate, whole blood, [place] lab [place] (05/11/2023 2:47 PM EDT) Lactate WB 2.9(H) 0.5 - 2.2 mmol/L [facility] Blood 05/11/2023 2:47 PM EDT 05/11/2023 2:53 PM EDT Narrative Resulting Agency Comment Spec In Lab Juan Luis Gonzalez MD CHEMISTRY ORDERABLES Performing Organization Address City/State/[facility] Co de Phone Number [facility] [address] * (ABNORMAL) CT Angiogram Abdomen & Pelvis [...] have questions please contact the health career law clerk that requested your imaging first. ? Narrative [...] Agency Comment Unexpected Finding Antelmo Sharma MD IMGerman CT ORDERABLES * CT Cardiac for Morphology [...] have questions please contact the health career law clerk that requested your imaging first. ? Electronically signed by: Cullen Narayanan MD, [facility] ([phone]), at 05/11/2023 4:37 PM Narrative 05/11/2023 4:37 [...] 610 mm2 Circumference: 88 mm Calcification: Mild Wfhuyor-fs-xblqnrfk height: Left: 6.2 mm Right: 5.8 mm THORACIC AORTA Description: Normal course and caliber. ??Mild diffuse atherosclerotic changes. No acute aortopathy noted. Crumb Packer dimensions: Aortic root: 27.6 mm Max ascending aorta: 30.5 mm x 27.7 mm Suggested fluoroscopic angulation based on line extending through the nadirs of the three sinuses of Valsalva, set equidistant: ?? TANZANIAN ??9 degrees; cranial 7 degrees MITRAL: Mitral [...] 610 mm2 Circumference: 88 mm Calcification: Mild Qkjqqeu-tv-hqjnqenl height: Left: 6.2 mm Right: 5.8 mm THORACIC AORTA Description: Normal course and caliber. Mild diffuse atheroscleroticchanges. No acute aortopathy noted. Crumb Packer dimensions: Aortic root: 27.6 mm Max ascending aorta: 30.5 mm x 27.7 mm Suggested fluoroscopic angulation based on line extending through thenadirs of the three sinuses of Valsalva, set equidistant: TANZANIAN 9 degrees; cranial 7 degrees MITRAL: Mitral [...] who have questions please contactthe health career law clerk that requested your imaging first. Electronically signed by: Cullen Narayanan MD, [facility]([phone]), at 05/11/2023 4:37 PM Antelmo Sharma MD IMG CT ORDERABLES * (ABNORMAL) Lactate, whole blood, [place] to lab [place] (05/11/2023 9:29 AM EDT) Lactate WB 3.1(H) 0.5 - 2.2 mmol/L [facility] Blood 05/11/2023 9:29 AM EDT 05/11/2023 9:38 AM EDT Narrative Resulting Agency Comment Spec In Lab Juan Luis Gonzalez MD CHEMISTRY ORDERABLES [facility] [place] [address] * (ABNORMAL) Differential, Automated (05/11/2023 4:42 AM EDT) Neutrophil % 78.1 % [facility] Neutrophil Absolute 5.46 1.70 - 6.10 x10(3)/mc L [facility] Lymph % 10.6 % [facility] Lymphocytes Abs 0.7(L) 0.9 - 3.2 x10(3)/mc L [facility] Monocyte % 9.6 % [facility] Monocyte Abs 0.7 0.3 - 0.9 x10(3)/mc L [facility] Eos % 0.0 % [facility] Eosinophils Abs 0.0 0.0 - 0.4 x10(3)/mc L [facility] Basophil % 0.4 % [facility] Baso Absolute 0.0 0.0 - 0.1 x10(3)/mc L [facility] Immature Gran % 1.30 % [facility] Comment: Immature granulocytes(IG's)percentage and absolute count will include metamyelocytes, myelocytes, and promyelocytes. Blood smears from CBCs yielding IG's will be scanned manually for concordance. If this scan disagrees with the automated IG or if promyelocytes are noted, a manual differential will be performed. Immature Gran Absolute 0.09(H) 0.00 - 0.04 x10(3)/mc L [facility] Blood 05/11/2023 4:42 AM EDT 05/11/2023 4:49 AM EDT Narrative Resulting Agency Comment Spec In Lab Klaudia Reid MD HEMATOLOGY OR DERABLES [facility] [place] [address] * (ABNORMAL) Hemogram (05/11/2023 4:42 AM EDT) White Blood Cell 7.0 4.0 - 9.5 x10(3)/mc L [facility] Red Blood Cell 3.44(L) 4.00 - 5.21 x10(6)/mc L [facility] Hemoglobin 11.1(L) 11.7 - 15.5 g/dL [facility] Hematocrit 32.7(L) 35.7 - 45.8 % [facility] Mean Cell Volume 95.1(H) 82.6 - 94.4 fL [facility] Mean Cell Hemoglobin 32.3(H) 27.1 - 32.0 pg [facility] Mean Cell Hemoglobin Concentration 33.9 31.7 - 35.0 g/dL [facility] Platelet 165 145 - 357 x10(3)/mc L [facility] RDW Standard Deviation 43.1 37.0 - 46.0 fL [facility] RDW coefficient of variation 12.7 11.5 - 14.1 % [facility] Mean Platelet Volume 10.1 7.6 - 12.9 fL [facility] NRBC% auto 0.0 % [facility] NRBC Absolute 0.000 0.000 - 0.000 x10(3)/mc L [facility] Blood 05/11/2023 4:42 AM EDT 05/11/2023 4:49 AM EDT Narrative Resulting Agency Comment Spec In Lab Klaudia Reid MD HEMATOLOGY OR DERABLES Performing Organization Address [facility] Co de Phone Number [facility] [place] [address] * Heparin (unfractionated) Level (05/11/2023 4:42 AM EDT) UF Heparin 0.46 IU/mL [facility] Comment: Heparin [...] MD HEMATOLOGY ORDERAB LES Performing Organization Address [facility] Co de Phone Number [facility] [place] [address] * (ABNORMAL) Comprehensive metabolic panel (non-fasting) (05/11/2023 4:42 AM EDT) Pathologist [facility] Glucose 143 65 - 199 mg/dL [facility] Comment:Diabetes: >=200 mg/d L plus symptoms Blood Urea Nitrogen 42(H) 8 - 18 mg/dL [facility] Creatinine 1.24(H) 0.70 - 1.20 mg/dL [facility] Sodium 134(L) 135 - 145 mmol/L [facility] Potassium 4.6 3.5 - 5.0 mmol/L [facility] Comment: Please note: ??Patients with WBC >100,000 may have falsely elevated Potassium levels. ??For accurate Potassium quantification in these patients send serum separator tube (gold top) for subsequent determinations. ??Contact the Clinical Chemistry Laboratory if there are any questions. Chloride 99 98 - 107 mmol/L [facility] Carbon Dioxide 14(L) 22 - 31 mmol/L [facility] Anion Gap 21(H) 5 - 15 mmol/L [facility] Calcium 9.6 8.5 - 10.5 mg/dL [facility] Protein, Total 7.2 6.1 - 8.0 g/dL [facility] Albumin 3.7 3.2 - 5.2 g/dL [facility] Aspartate Aminotransferase 144(H) 0 - 30 unit/L [facility] Comment:result rechecked-ssc Alanine Aminotransferase 130(H) 0 - 30 unit/L [facility] Comment:result rechecked-ssc Alkaline Phosphatase 72 35 - 105 unit/L [facility] Bilirubin, Total 0.8 0.2 - 1.3 mg/dL [facility] Est Glomerular Filtration Rate 48(L) >=60 mL/min/1. 73 m?? [facility] Comment: This patient's estimated GFR was [...] Lab Radha Hollins MD CHEMISTRY ORDERABL ES [facility] [place] [address] * EKG 12 Lead (05/10/2023 1:16 PM EDT) Ventricular rate 118 BPM MUSE SYSTEM Atrial Rate 118 BPM MUSE SYSTEM P-R Interval 152 ms MUSE SYSTEM QRS Duration 104 ms MUSE SYSTEM Q-T Interval 316 ms MUSE SYSTEM QTC Calculated (Bezet) 442 ms MUSE SYSTEM Calculated P [place] 29 degrees MUSE SYSTEM Calculated R [place] 18 degrees MUSE SYSTEM Calculated T [place] -173 degrees MUSE SYSTEM INTERPRETATION Sinus tachycardia Minimal voltage criteria for LVH, may be normal variant ( [place] product ) Septal infarct , age undetermined ST & T wave abnormality, consider lateral ischemia Abnormal ECG When compared with ECG of 10-MAY-2023 07:59, Fusion complexes are no longer Present Premature ventricular complexes are no longer Present ST no longer depressed in Anterior leads Confirmed by MD Villareal Danette ([id number]) on 05/10/2023 8:47:46 PM MUSE SYSTEM 05/10/2023 1:16 PM EDT 05/10/2023 8:47 PM EDT Juan Luis Gonzalez MD ECG ORDERABLES MUSE SYSTEM * Lactate, whole blood, [place] lab [place] (05/10/2023 11:52 AM EDT) Lactate WB 1.8 0.5 - 2.2 mmol/L [facility] Blood 05/10/2023 11:5 2 AM EDT 05/10/2023 12:13 PM EDT Narrative Resulting Agency Comment Spec In Lab Juan Luis Gonzalez MD CHEMISTRY ORDERABLES [facility] [place] [address] * XR Chest One View (05/10/2023 11:16 [...] have questions please contact the health career law clerk that requested your imaging first. ? Electronically signed by: ALIX URVALCABA MD, [facility] ([phone]), at 05/10/2023 1:25 PM Narrative 05/10/2023 1:25 [...] who have questions please contactthe health career law clerk that requested your imaging first. Electronically signed by: ALIX RUVALCABA MD, [facility]([phone]), at 05/10/2023 1:25 PM Juan Luis Gonzalez MD IMG DX ORDERABLES * EKG 12 Lead (05/10/2023 7:59 AM EDT) Ventricular rate 115 BPM MUSE SYSTEM Atrial Rate 115 BPM MUSE SYSTEM P-R Interval 142 ms MUSE SYSTEM QRS Duration 102 ms MUSE SYSTEM Q-T Interval 322 ms MUSE SYSTEM QTC Calculated (Bezet) 445 ms MUSE SYSTEM Calculated P [place] 36 degrees MUSE SYSTEM Calculated R [place] 28 degrees MUSE SYSTEM Calculated T [place] -119 degrees MUSE SYSTEM INTERPRETATION Sinus tachycardia [...] Differential, Automated (05/10/2023 2:28 AM EDT) Pathologist [facility] Neutrophil % 77.1 % [facility] Neutrophil Absolute 4.01 1.70 - 6.10 x10(3)/mc L [facility] Lymph % 14.0 % [facility] Lymphocytes Abs 0.7(L) 0.9 - 3.2 x10(3)/mc L [facility] Monocyte % 7.7 % [facility] Monocyte Abs 0.4 0.3 - 0.9 x10(3)/mc L [facility] Eos % 0.4 % [facility] Eosinophils Abs 0.0 0.0 - 0.4 x10(3)/mc L [facility] Basophil % 0.4 % [facility] Baso Absolute 0.0 0.0 - 0.1 x10(3)/mc L [facility] Immature Gran % 0.40 % [facility] Comment: Immature granulocytes(IG's)percentage and absolute count will include metamyelocytes, myelocytes, and promyelocytes. Blood smears from CBCs yielding IG's will be scanned manually for concordance. If this scan disagrees with the automated IG or if promyelocytes are noted, a manual differential will be performed. Immature Gran Absolute 0.02 0.00 - 0.04 x10(3)/mc L [facility] Blood 05/10/2023 2:28 AM EDT 05/10/2023 2:57 AM EDT Narrative Resulting Agency Comment Spec In Lab Klaudia Reid MD HEMATOLOGY OR DERABLES [facility] [place] [address] * (ABNORMAL) Hemogram (05/10/2023 2:28 AM EDT) White Blood Cell 5.2 4.0 - 9.5 x10(3)/mc L [facility] Red Blood Cell 3.11(L) 4.00 - 5.21 x10(6)/mc L [facility] Hemoglobin 10.2(L) 11.7 - 15.5 g/dL [facility] Hematocrit 30.2(L) 35.7 - 45.8 % [facility] Mean Cell Volume 97.1(H) 82.6 - 94.4 fL [facility] Mean Cell Hemoglobin 32.8(H) 27.1 - 32.0 pg [facility] Mean Cell Hemoglobin Concentration 33.8 31.7 - 35.0 g/dL [facility] Platelet 151 145 - 357 x10(3)/mc L [facility] RDW Standard Deviation 44.9 37.0 - 46.0 fL [facility] RDW coefficient of variation 12.8 11.5 - 14.1 % [facility] Mean Platelet Volume 9.8 7.6 - 12.9 fL [facility] NRBC% auto 0.0 % [facility] NRBC Absolute 0.000 0.000 - 0.000 x10(3)/mc L [facility] Blood 05/10/2023 2:28 AM EDT 05/10/2023 2:57 AM EDT Narrative Resulting Agency Comment Spec In Lab Klaudia Reid MD HEMATOLOGY OR DERABLES [facility] [address] [place] [address] * (ABNORMAL) Comprehensive metabolic panel (non-fasting) (05/10/2023 2:28 AM EDT) Glucose 100 65 - 199 mg/dL [facility] Comment:Diabetes: >=200 mg/d L plus symptoms Blood Urea Nitrogen 30(H) 8 - 18 mg/dL [facility] Creatinine 0.90 0.70 - 1.20 mg/dL [facility] Sodium 134(L) 135 - 145 mmol/L [facility] Potassium 4.1 3.5 - 5.0 mmol/L [facility] Comment: Please note: ??Patients with WBC >100,000 may have falsely elevated Potassium levels. ??For accurate Potassium quantification in these patients send serum separator tube (gold top) for subsequent determinations. ??Contact the Clinical Chemistry Laboratory if there are any questions. Chloride 102 98 - 107 mmol/L [facility] Carbon Dioxide 20(L) 22 - 31 mmol/L [facility] Anion Gap 12 5 - 15 mmol/L [facility] Calcium 9.3 8.5 - 10.5 mg/dL [facility] Protein, Total 6.4 6.1 - 8.0 g/dL [facility] Albumin 3.7 3.2 - 5.2 g/dL [facility] Aspartate Aminotransferase 24 0 - 30 unit/L [facility] Alanine Aminotransferase 14 0 - 30 unit/L [facility] Alkaline Phosphatase 70 35 - 105 unit/L [facility] Bilirubin, Total 0.5 0.2 - 1.3 mg/dL [facility] Est Glomerular Filtration Rate 70 >=60 mL/min/1. 73 m?? [facility] Comment: This patient's estimated GFR was [...] MD CHEMISTRY ORDERABL ES Performing Organization Address [facility] [place] [address] * Heparin (unfractionated) Level (05/10/2023 2:28 AM EDT) UF Heparin 0.37 IU/mL [facility] Comment: Heparin [...] MD HEMATOLOGY ORDERAB LES Performing Organization Address [facility]/ZIP Co de Phone Number [facility] [place] [address] * (ABNORMAL) Differential, Automated (05/09/2023 4:00 AM EDT) Neutrophil % 81.7 % [facility] Neutrophil Absolute 5.26 1.70 - 6.10 x10(3)/mc L [facility] Lymph % 10.7 % [facility] Lymphocytes Abs 0.7(L) 0.9 - 3.2 x10(3)/mc L [facility] Monocyte % 6.5 % [facility] Monocyte Abs 0.4 0.3 - 0.9 x10(3)/ L [facility] Eos % 0.5 % [facility] Eosinophils Abs 0.0 0.0 - 0.4 x10(3)/mc L [facility] Basophil % 0.3 % [facility] Baso Absolute 0.0 0.0 - 0.1 x10(3)/ L [facility] Immature Gran % 0.30 % [facility] Comment: Immature granulocytes(IG's)percentage and absolute count will include metamyelocytes, myelocytes, and promyelocytes. Blood smears from CBCs yielding IG's will be scanned manually for concordance. If this scan disagrees with the automated IG or if promyelocytes are noted, a manual differential will be performed. Immature Gran Absolute 0.02 0.00 - 0.04 x10(3)/ L [facility] Blood 05/09/2023 4:00 AM EDT 05/09/2023 4:19 AM EDT Narrative Resulting Agency Comment Spec In Lab Klaudia Reid MD HEMATOLOGY OR DERABLES Performing Organization Address City/State/[facility] Co de Phone Number [facility] [place] [address] * (ABNORMAL) Hemogram (05/09/2023 4:00 AM EDT) White Blood Cell 6.4 4.0 - 9.5 x10(3)/mc L [facility] Red Blood Cell 3.15(L) 4.00 - 5.21 x10(6)/mc L [facility] Hemoglobin 10.2(L) 11.7 - 15.5 g/dL [facility] Hematocrit 30.3(L) 35.7 - 45.8 % [facility] Mean Cell Volume 96.2(H) 82.6 - 94.4 fL [facility] Mean Cell Hemoglobin 32.4(H) 27.1 - 32.0 pg [facility] Mean Cell Hemoglobin Concentration 33.7 31.7 - 35.0 g/dL [facility] Platelet 151 145 - 357 x10(3)/mc L [facility] RDW Standard Deviation 44.7 37.0 - 46.0 fL [facility] RDW coefficient of variation 12.8 11.5 - 14.1 % [facility] Mean Platelet Volume 9.4 7.6 - 12.9 fL [facility] NRBC% auto 0.0 % [facility] NRBC Absolute 0.000 0.000 - 0.000 x10(3)/mc L [facility] Blood 05/09/2023 4:00 AM EDT 05/09/2023 4:19 AM EDT Narrative Resulting Agency Comment Spec In Lab Klaudia Reid MD HEMATOLOGY OR DERABLES [facility] [place] [address] * Heparin (unfractionated) Level (05/09/2023 4:00 AM EDT) UF Heparin 0.47 IU/mL [facility] Comment: Heparin (anti-Xa) levels should [...] Lab Radha Hollins MD HEMATOLOGY ORDERAB LES [facility] [place] [address] * (ABNORMAL) Comprehensive metabolic panel (non-fasting) (05/09/2023 4:00 AM EDT) Glucose 108 65 - 199 mg/dL [facility] Comment:Diabetes: >=200 mg/d L plus symptoms Blood Urea Nitrogen 31(H) 8 - 18 mg/dL [facility] Creatinine 1.03 0.70 - 1.20 mg/dL [facility] Sodium 137 135 - 145 mmol/L [facility] Potassium 4.4 3.5 - 5.0 mmol/L [facility] Comment: Please note: ??Patients with WBC >100,000 may have falsely elevated Potassium levels. ??For accurate Potassium quantification in these patients send serum separator tube (gold top) for subsequent determinations. ??Contact the Clinical Chemistry Laboratory if there are any questions. Chloride 102 98 - 107 mmol/L [facility] Carbon Dioxide 20(L) 22 - 31 mmol/L [facility] Anion Gap 15 5 - 15 mmol/L [facility] Calcium 9.3 8.5 - 10.5 mg/dL [facility] Protein, Total 6.6 6.1 - 8.0 g/dL [facility] Albumin 3.8 3.2 - 5.2 g/dL [facility] Aspartate Aminotransferase 32(H) 0 - 30 unit/L [facility] Alanine Aminotransferase 18 0 - 30 unit/L [facility] Alkaline Phosphatase 78 35 - 105 unit/L [facility] Bilirubin, Total 0.5 0.2 - 1.3 mg/dL [facility] Est Glomerular Filtration Rate 60 >=60 mL/min/1. 73 m?? [facility] Comment: This patient's estimated GFR was [...] MD CHEMISTRY ORDERABL ES Performing Organization Address [facility]/ZIP Co de Phone Number [facility] [place] [address] * (ABNORMAL) pro-Brain Natriuretic Peptide (05/08/2023 4:00 PM EDT) NT-proBNP 25,503(H) <=124 pg/mL [facility] Blood Venous Draw / Unknown 05/08/2023 4:00 PM EDT 05/08/2023 4:25 PM EDT Narrative Resulting Agency Comment Spec In Lab Juan Luis Gonzalez MD CHEMISTRY ORDERABLES Performing Organization Address [facility] Co de Phone Number [facility] [place] [address] * Magnesium (05/08/2023 4:00 PM EDT) Magnesium 0.82 0.69 - 1.07 mmol/L [facility] Blood 05/08/2023 4:00 PM EDT 05/08/2023 4:06 PM EDT Narrative Resulting Agency Comment Spec In Lab Enrique Chua MD CHEMISTRY ORDERABLES Performing Organization Address [facility] Co de Phone Number [facility] [place] [address] * Potassium (05/08/2023 4:00 PM EDT) Potassium 3.9 3.5 - 5.0 mmol/L [facility] Comment: Please note: ??Patients with WBC [...] ORDERABL ES Performing Organization Address [facility] de Phone Number [facility] [place] [address] * Heparin (unfractionated) Level (05/08/2023 4:00 PM EDT) Pathologist [facility] UF Heparin 0.43 IU/mL [facility] Comment: Heparin [...] MD HEMATOLOGY ORDERAB LES Performing Organization Address [facility] Co de Phone Number [facility] [place] [address] * EKG 12 Lead (05/08/2023 3:51 PM EDT) Ventricular rate 98 BPM MUSE SYSTEM Atrial Rate 98 BPM MUSE SYSTEM P-R Interval 150 ms MUSE SYSTEM QRS Duration 102 ms MUSE SYSTEM Q-T Interval 358 ms MUSE SYSTEM QTC Calculated (Bezet) 457 ms MUSE SYSTEM Calculated P [place] 38 degrees MUSE SYSTEM Calculated R [place] 48 degrees MUSE SYSTEM Calculated T [place] -112 degrees MUSE SYSTEM INTERPRETATION Sinus rhythm with frequent and consecutive Premature ventricular and fusion complexes Septal infarct , age undetermined ST & T wave abnormality, consider anterolateral ischemia Abnormal ECG When compared with ECG of 09-NOV-2022 11:17, T wave inversion now evident in Anterolateral leads Confirmed by MD Harshil, Enrique Bell ([id number]) on 05/10/2023 8:11:46 AM MUSE SYSTEM 05/08/2023 3:51 PM EDT 05/10/2023 8:11 AM EDT Radha Hollins MD ECG ORDERABLES MUSE SYSTEM * (ABNORMAL) Differential, Automated (05/08/2023 11:38 AM EDT) Neutrophil % 71.3 % [facility] Neutrophil Absolute 2.91 1.70 - 6.10 x10(3)/mc L [facility] Lymph % 19.1 % [facility] Lymphocytes Abs 0.8(L) 0.9 - 3.2 x10(3)/mc L [facility] Monocyte % 9.0 % [facility] Monocyte Abs 0.4 0.3 - 0.9 x10(3)/mc L [facility] Eos % 0.2 % [facility] Eosinophils Abs 0.0 0.0 - 0.4 x10(3)/mc L [facility] Basophil % 0.2 % [facility] Baso Absolute 0.0 0.0 - 0.1 x10(3)/mc L [facility] Immature Gran % 0.20 % [facility] Comment: Immature granulocytes(IG's)percentage and absolute count will include metamyelocytes, myelocytes, and promyelocytes. Blood smears from CBCs yielding IG's will be scanned manually for concordance. If this scan disagrees with the automated IG or if promyelocytes are noted, a manual differential will be performed. Immature Gran Absolute 0.01 0.00 - 0.04 x10(3)/mc L [facility] Blood 05/08/2023 11:3 8 AM EDT 05/08/2023 11:44 AM EDT Narrative Resulting Agency Comment Spec In Lab Lincoln Sal MD HEMATOLOGY ORDERA BLES [facility] [place] [address] * (ABNORMAL) Hemogram (05/08/2023 11:38 AM EDT) White Blood Cell 4.1 4.0 - 9.5 x10(3)/mc L [facility] Red Blood Cell 3.05(L) 4.00 - 5.21 x10(6)/mc L [facility] Hemoglobin 10.2(L) 11.7 - 15.5 g/dL [facility] Hematocrit 29.6(L) 35.7 - 45.8 % [facility] Mean Cell Volume 97.0(H) 82.6 - 94.4 fL [facility] Mean Cell Hemoglobin 33.4(H) 27.1 - 32.0 pg [facility] Mean Cell Hemoglobin Concentration 34.5 31.7 - 35.0 g/dL [facility] Platelet 136(L) 145 - 357 x10(3)/mc L [facility] RDW Standard Deviation 44.3 37.0 - 46.0 fL [facility] RDW coefficient of variation 12.6 11.5 - 14.1 % [facility] Mean Platelet Volume 9.4 7.6 - 12.9 fL [facility] NRBC% auto 0.0 % [facility] NRBC Absolute 0.000 0.000 - 0.000 x10(3)/ L [facility] Blood 05/08/2023 11:3 8 AM EDT 05/08/2023 11:44 AM EDT Narrative Resulting Agency Comment Spec In Lab Lincoln Sal MD HEMATOLOGY ORDERA BLES [facility] [place] [address] * TSH (05/08/2023 11:38 AM EDT) Thyroid Stimulating Hormone 1.27 0.27 - 4.20 mcIU/mL [facility] Comment: Reference Interval (mcIU/mL): Females: ??First Trimester: 0.23-3.88 ??Second Trimester: 0.22-3.90 ??Third Trimester: 0.44-4.66 Blood 05/08/2023 11:3 8 AM EDT 05/08/2023 11:44 AM EDT Narrative Resulting Agency Comment Spec In Lab Enrique Chua MD CHEMISTRY ORDERABLES Performing Organization Address City/[facility]/ZIP Co de Phone Number [facility] [place] [address] * (ABNORMAL) Phosphorus (05/08/2023 11:38 AM EDT) Phosphorus 4.7(H) 2.5 - 4.5 mg/dL [facility] Blood 05/08/2023 11:3 8 AM EDT 05/08/2023 11:44 AM EDT Narrative Resulting Agency Comment Spec In Lab Enrique Chua MD CHEMISTRY ORDERABLES Performing Organization Address [facility] Co de Phone Number [facility] [place] [address] * Magnesium (05/08/2023 11:38 AM EDT) Magnesium 0.76 0.69 - 1.07 mmol/L [facility] Blood 05/08/2023 11:3 8 AM EDT 05/08/2023 11:44 AM EDT Narrative Resulting Agency Comment Spec In Lab Enrique Chua MD CHEMISTRY ORDERABLES Performing Organization Address [facility] Co de Phone Number [facility] [place] [address] * (ABNORMAL) Basic Metabolic Panel (non-fasting) (05/08/2023 11:38 AM EDT) Glucose 97 65 - 199 mg/dL [facility] Comment:Diabetes: >=200 mg/d L plus symptoms Blood Urea Nitrogen 27(H) 8 - 18 mg/dL [facility] Creatinine 1.02 0.70 - 1.20 mg/dL [facility] Sodium 139 135 - 145 mmol/L [facility] Potassium 4.2 3.5 - 5.0 mmol/L [facility] Comment: Please note: ??Patients with WBC >100,000 may have falsely elevated Potassium levels. ??For accurate Potassium quantification in these patients send serum separator tube (gold top) for subsequent determinations. ??Contact the Clinical Chemistry Laboratory if there are any questions. Chloride 105 98 - 107 mmol/L [facility] Carbon Dioxide 20(L) 22 - 31 mmol/L [facility] Anion Gap 14 5 - 15 mmol/L [facility] Calcium 9.4 8.5 - 10.5 mg/dL [facility] Est Glomerular Filtration Rate 60 >=60 mL/min/1. 73 m?? [facility] Comment: This patient's estimated GFR was [...] In Lab Enrique Chua MD CHEMISTRY ORDERABLES [facility] [address] * ECHO COMPLETE (05/08/2023 11:02 AM EDT) Pathologist [facility] EF 25 HEARTFigure 1 SYSTEM Anatomical Region Laterality Modality Cardiac Other 05/08/2023 10:0 3 AM EDT Narrative 05/08/2023 11:51 AM EDT ? Echocardiogram Report Name: PURNIMA THACKER ?Study Date: 05/08/2023 10:03 AMBP: 92/64 mmHg ? Patient Location: [facility]^CV29^A : 1955 ? Height: 155 cm ? Account: [id number] Age: 67 yrs ? Weight: 78 kg [...] worsening stenosis. Mitral regurgitation is similar. Procedure Complete-[id number]. Satisfactory quality. There is normal sinus rhythm. [...] Echocardiogram Report Name: PURNIMA THACKER Study Date: :03 AMBP: 92/64 mmHg Patient Location:[facility]^CV29^A : 1955 Height: 155 cm Account: [id number] Age: 67 yrs Weight: 78 kg Gender: [...] suggestsworsening stenosis. Mitral regurgitation is similar. Procedure Complete-44515. Satisfactory quality. There is normal sinus rhythm. 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 Mild coronary artery disease by [facility] 11/09/2022 Mixed connective tissue disease Other specified [...] ejection fraction Mild coronary artery disease by [facility] 11/09/2022 Stenosis of prosthetic aortic valve (Bovine [...] dose on Wed05/12/23 at 1030, Until Discontinued, [place] teeth, Routine Given 05/12/2023 10:04 AM EDT [...] at 0831, Side port TKO rate, per [facility] flush protocol Rate/Dose Verify 05/13/2023 6:00 AM EDT 10 mL/hr 10 mL/hr Rate/Dose Verify 05/13/2023 4:00 AM EDT 10 mL/hr 10 mL/h r Rate/Dose Verify 05/13/2023 2:00 AM EDT 10 mL/hr 10 mL/h r sodium chloride 0.9% infusion 10-30 mL/hr, Intravenous, DAILY PRN, Starting on Wed05/12/23 at 0944, Until Wed05/17/23 at 0831, Side port TKO rate, per [facility] flush protocol. Rate/Dose Verify 05/17/2023 8:00 AM [...] 0051, Until Wed05/12/23 at 0119, Nery Zepeda: mahnaz override vasopressin (Vasostrict) (0.2 units/mL) 100 mL [...] on 05/19/23 at 1715, Until Discontinued, Routine 0836 (Given [...] VALDO)2012 (Given - Provider: Favian Mckeon, VALDO) 08 [...] RN)2053 (Given - Provider: Favian Mckeon RN) 831 (Given - Provider: Kia Gallego RN)2012 (Given - Provider: Favian Mckeon RN) 826 (Given - Provider: Kia Gallego RN) PRN [...] indicated., Routine 1758 (Given - Provider: Gabino Calhoun, RN)2344 (Given - Provider: Petros Valiente RN) [...] Intravenous, EVERY 1 MIN PRN, Starting on 05/12/23 at 0944, Until 05/22/23 at 1246, flush, [...] Routine documented in this encounter 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
--- OUTSIDE RECORDS SUMMARY | 2024-04-18 14:36 | XMS_ITS | Encounter Summary ---
Author Organization [facility] [place] [address] Care Team Providers Care Studio Potter Name Role Phone Magdalena Acosta MD Primary Care Provider [phone] Reason for Visit * Auth/Cert (Routine) Specialty Diagnoses / Procedures Referred By Contac t Referred To Contact Diagnoses Symptomatic severe aortic stenosis with low ejection fraction NSTEMI, CHF Enrique Chua MD [facility] [place] [address] [facility] Referral ID Status Reason Start Date Expiration Date Visits Re quested Visits Authorized [id number] 1 1 Encounter Details Date Type Department Care Team (Late st Contact Info) Description 05/12/2023 2:50 PM EDT - 05/12/2023 3:50 PM [place] [address] Antelmo Sharma MD [facility] [place] [address] CARDIAC CATHETERIZATION Social History Tobacco Use Types [...] Patient Age: 67 y.o. Birthdate: 1955 Language: Russian Race: White Ethnicity: Not nor Admit Date: 05/08/2023 Discharge Date: 05/22/2023 Attending Physician: Alirio Hudson MD Follow-up Recommendations for Providers: Please continue routine management of cardiovascular risk factors including blood pressure, lipids,glucose, etc. Please note any medication changes. Patient to follow up with PCP, Magdalena Acosta MD, or Primary Broker Associate, Avis Mejia MD, in ~ 7-10 days. Patient to follow up with Sharebroker, Dr. Antelmo Sharma, in 2 weeks with an EKG, Echo, CBC, and CMP. Patient to follow up with Nephrology, their office to arrange. Zkhi-Jqearg-ol interval: After initial 30 day follow-up appointment , all TAVR patients will follow-up again in one year with an echo. 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 Secondary Diagnoses: Active Hospital Problems Diagnosis S/P TAVR (transcatheter aortic valve replacement) Cardiogenic shock Symptomatic severe aortic stenosis with low ejection fraction Mild coronary artery disease by [facility] 11/09/2022 Heart failure with reduced [...] Tube Placement Right 05/18/2023 Laure Ricks PA [facility] INTERVENTIONL RAD PRG CATH PLMT LEFT HEART CATH & ARTS W/INJ & ANGIO IMG S&I N/A 11/09/2022 CORONARY ANGIOGRAPHY; W [facility],POSSIBLE PCI (WRVU 5.6) performed by Mario Alberto Escobedo MD at [facility] CATH LABS PRG COMBINED RIGHT & LEFT HEART CATH W/INJ L VENTRICULOGRAPHY, IMG S&I N/A 05/12/2023 COMBINED RIGHT & LEFT HEART CATH,INC INJ FOR L VENTRICULOGRAPHY (WRVU 5.99) performed by Antelmo Sharma MD at [facility] CATH LABS PRO AORTOPLAS FOR SUPRAVALV STEN N/A 09/21/2016 @AORTOPLASTY FOR SUPRAVALVULAR STENOSIS (WRVU 29.33) performed by Alirio Hudson MD at [facility] MAIN OR PRO REPLACE AORTIC VALVE (TAVR/FEDERICO)PERC FEMORAL ARTERY APPROACH 05/12/2023 @TRANSCATHETER AORTIC VALVE REPLACEMENT (TAVR), PERCUTANEOUS FEMORAL (WRVU 22.47) performed by Alirio Hudson MD at [facility] CATH LABS PRO REPLACEMENT PROSTHETIC AORTIC VALVE OPEN W CARDIOPULMONARY BYPASS HOMOGRF/STENT N/A 09/21/2016 @REPLACE AORTIC VALVE, OPEN, W\CPB, W\PROSTHETIC VALVE (WRVU 41.32) performed by Alirio Hudson MD at [facility] MAIN OR [...] Major Procedures/Operations: 05/12/23: Successful right transfemoral TAVR Ccemh-ci-Jiiao with a 23 mm Lai 3 THV. Left coronary protection with left main MINNA. Hospital Course: #Severe prosthetic s/p valve in valve TF TAVR #Low coronary heights s/p left main stent for coronary protection #Type 2 NSTEMI, present on arrival, resolved #Acute decompensated HFrEF #Cardiogenic shock #EVANS / Cardiorenal syndrome Purnima Thacker was admitted to [facility] on 05/08/2023 via the Cardiology Service [...] TAVR and she was brought to the laboratory assistant the following morning where Drs. Alirio Hudson [...] if you have questions. Please call your Sharebroker's office if you have any discharge or drainage from your procedural sites. Your Sharebroker, Dr. Antelmo Sharma and/or the Aircrewman may be reached at . Antibiotic prophylaxis: You will need to take antibiotics prior to many invasive tests and treatments, such as dental cleaning, which should be done every 6 months. Your primary care physician or your dentist can prescribe this medication. Please refer to the card with the [employer] Guidelines for more information. You have been provided with a copy of this card. Please refer to the [employer] Heart [employer] Guidelines for more information. Good [...] should resume a low fat, low cholesterol, [employer] Heart Association Diet Driving: No restrictions. Shower/Bath: You may shower daily. No baths, soaking, or swimming for the first week. Wound care: Wash the sites daily with soap and rinse well, pat dry. Assess for any signs of infection such as increased redness, pain, warmth or drainage. Please call your benzene still utility operator's office if you have any discharge or drainage from your procedural sites. If there is a lot of swelling, apply mamta wraps during the day and remove at bedtime. Elevate your legs when you are sitting. Home oxygen therapy: N/A Follow up appointments: Please schedule a follow-up appointment with your PCP, Magdalena Acosta MD, or Primary Broker Associate in ~ 7-10 days. You have a follow-up appointment with your Sharebroker, Dr. Antelmo Sharma, in 2 weeks with an EKG, Echo, and labs prior to your appointment. You will need follow-up with Nephrology, their office will arrange. Bdph-Ynuker-nl interval: After initial 30 day follow-up appointment , all TAVR patients will follow-up again in one year with an echo. Cardiac Rehabilitation: Purnima Thacker was seen today regarding participation in the outpatient Phase 2 Cardiac Rehabilitation at [facility]. The patient agrees to a referral to this program. The referral will be sent at discharge and the patient should be contacted by the Program within 1- 2 weeks from discharge. Future Appointments and Orders Future Appointments and Orders Future Appointments Provider Department Dept Phone 07/29/2023 11:00 AM Magdalena Peralta MD Rheumatology at [facility] Arrive at: [facility] [phone] 02/11/2024 2:00 PM Marek Bonilla MD Dermatology at [place] Arrive at: [facility] [address] [phone] Future Orders Complete By Expires Type and Screen Future Surgery, [facility] SAME DAY PROGRAM ONLY) [MYM9102 Custom] 05/11/2023 Process Instructions: This test is intended ONLY for patients with upcoming surgery for testing prior to the day of surgery obtained through the same day program (4V or SDP). For ALL OTHER PATIENTS, order a Type and Screen (MWF330) This order includes the physician order for an ABO Recheck if requested by the Blood Bank. Scheduling Instructions: Comments: Questions: Date of surgery: CBC (with Diff) [MEU234 Custom] 06/05/2023 12/05/2023 Process Instructions: INCLUDES: WBC, RBC, Hgb, Hct, Platelets, RBC Indices and Differential Scheduling Instructions: Comments: Questions: Comprehensive metabolic panel (non-fasting) [LAB17 Custom] 06/05/2023 08/20/2023 Process Instructions: INCLUDES: Calcium, T Protein, Albumin, AST, ALT, Alk Phos, T Bili, BUN, Creat, GFR, Glucose, Lytes. Scheduling Instructions: Comments: Questions: Echocardiogram Transthoracic [26605 CPT(R)] 06/05/2023 12/05/2023 Process Instructions: Scheduling Instructions: Questions: Where will study be performed?: [facility] Does the patient have Congenital Heart Disease?: Does patient require sedation?: GA rationale: EKG 12 Lead [50765 CPT(R)] 06/05/2023 12/05/2023 Process Instructions: Scheduling Instructions: Questions: Which location will this be performed?: [place] Is a rhythm strip needed?: No [facility] Devices [EQ161 Custom] As directed Process Instructions: Scheduling Instructions: Questions: Device Needed: WALKER (E0143) Patient Height (cm): 154.9 cm (5' 0.98) Patient Weight: 75.4 kg (166 lb 3.2 oz) Diagnosis: Unsteady gait when walking Referral to Cardiac Rehab [ZSS110 Custom] As directed Process Instructions: If no progress note charted, please enter Clinical details in comments. Scheduling Instructions: Questions: My question or request is: s/p TAVR. Cardiac rehab at [facility]. Referral to Home Health [REF34 Custom] As directed Process Instructions: If no progress note charted, please enter Clinical details in comments. Scheduling Instructions: Comments: DOCUMENTATION FOR VNA SERVICES PATIENT'S LOCATION: Purnima Thacker [address] [place] [phone] (home) Filter Tip Catcher's Name: Irineo and brother Raymond In discussion with the attending physician, it is certified that this patient is under his/her careand that MD, or an ZOO DIRECTOR, CARD LACER, or PA who is working directly with him/her, had a igim-ca-nics encounter that meets the physician hmak-zj-oaxu encounter requirements with this patient on 05/22/2023. [...] for managing ADLs. HOME HEALTH CARE AGENCY: [facility]. [address] [facility] [address] PHONE: [phone] FAX: [phone] Start of care: Ideally 24-48 hours after [...] Magdalena Acosta MD [address] / [facility] [phone] All VNA agencies which cover the area of patient's residence have been reviewed, either verbally joao writing, and patient has chosen the home health care agency noted. Questions: Disciplines Requested: Physical Therapy Occupational Therapy Discharge References/Attachments None Arrangements for VNA/home care: As above. (delete if no VNA) Signed: EKATERINA NAVARRETE [facility] Section of Cardiac Surgery Date: 05/22/2023 CC: Magdalena Acosta MD PembrokeMario Alberto maxwell MD [address] [place] [address] documented in this encounter Discharge Instructions * Patient Instructions* Vinod Juárez PA - 05/22/2023 9:32 AM EDT TAVR Discharge Instructions: Call your doctor if: You have a fever of greater than 101 degrees, shaking chills, if you develop redness or drainage from your procedure sites, or if you have questions. Please call your Sharebroker's office if you have any discharge or drainage from your procedural sites. Your Sharebroker, Dr. Antelmo Sharma and/or the Aircrewman may be reached at . Antibiotic prophylaxis: You will need to take antibiotics prior to many invasive tests and treatments, such as dental cleaning, which should be done every 6 months. Your primary care physician or your dentist can prescribe this medication. Please refer to the card with the [employer] Heart Association Guidelines for more information. You have been provided with a copy of this card. Please refer to the [employer] Heart [employer] Guidelines for more information. Good [...] should resume a low fat, low cholesterol, [employer] Heart Association Diet Driving: No restrictions. Shower/Bath: You may shower daily. No baths, soaking, or swimming for the first week. Wound care: Wash the sites daily with soap and rinse well, pat dry. Assess for any signs of infection such as increased redness, pain, warmth or drainage. Please call your benzene still utility operator's office if you have any discharge or drainage from your procedural sites. If there is a lot of swelling, apply mamta wraps during the day and remove at bedtime. Elevate your legs when you are sitting. Home oxygen therapy: N/A Follow up appointments: Please schedule a follow-up appointment with your PCP, Magdalena Acosta MD, or Primary Broker Associate in ~ 7-10 days. You have a follow-up appointment with your Sharebroker, Dr. Antelmo Sharma, in 2 weeks with an EKG, Echo, and labs prior to your appointment. You will need follow-up with Nephrology, their office will arrange. Zlia-Uyqjqn-kg interval: After initial 30 day follow-up appointment , all TAVR patients will follow-up again in one year with an echo. Cardiac Rehabilitation: Purnima Gallegol was seen today regarding participation in the outpatient Phase 2 Cardiac Rehabilitation at [facility]. The patient agrees to a [...] ins ( tef) Haven Ba, PT Pager: [phone] Physical Therapy Inpatient Rehabilitation Department * Nico [...] 0600 and on the weekends please page [phone]. * Jory Paniagua - 05/20/2023 3:52 PM [...] vomiting Last Bowel Movement: 05/20/23 Jory Paniagua Staff Development Coordinator * Tong Mike, OT - 05/20/2023 3:16 [...] 05/18/2023 IR Chest Tube Placement Right 05/18/2023 Larue Ricks PA [facility] INTERVENTIONL RAD PRG CATH PLMT LEFT HEART CATH & ARTS W/INJ & ANGIO IMG S&I N/A 11/09/2022 CORONARY ANGIOGRAPHY; W [facility],POSSIBLE PCI (WRVU 5.6) performed by Mario Alberto Escobedo MD at [facility] CATH LABS PRG COMBINED RIGHT & LEFT HEART CATH W/INJ L VENTRICULOGRAPHY, IMG S&I N/A 05/12/2023 COMBINED RIGHT & LEFT HEART CATH,INC INJ FOR L VENTRICULOGRAPHY (WRVU 5.99) performed by Antelmo Sharma MD at [facility] CATH LABS PRO AORTOPLAS FOR SUPRAVALV STEN N/A 09/21/2016 @AORTOPLASTY FOR SUPRAVALVULAR STENOSIS (WRVU 29.33) performed by Alirio Hudson MD at [facility] MAIN OR PRO REPLACE AORTIC VALVE (TAVR/FEDERICO)PERC FEMORAL ARTERY APPROACH 05/12/2023 @TRANSCATHETER AORTIC VALVE REPLACEMENT (TAVR), PERCUTANEOUS FEMORAL (WRVU 22.47) performed by Alirio Hudson MD at [facility] CATH LABS PRO REPLACEMENT PROSTHETIC AORTIC VALVE OPEN W CARDIOPULMONARY BYPASS HOMOGRF/STENT N/A 09/21/2016 @REPLACE AORTIC VALVE, OPEN, W\CPB, W\PROSTHETIC VALVE (WRVU 41.32) performed by Alirio Hudson MD at [facility] MAIN OR Social History: Patient lives alone. Home Setup: Pt lives on one level with tub shower and three steps to enter. DME: none used EMERGENCY ROOM TECH Baseline ADL/Mobility: Independent with ADLs and IADLs. [...] WFL Vision & Perception: corrective lenses multimedia educational specialist Communication: WFL Range of motion, strength, coordination: [...] Discharge planning. Total Minutes, Occupational Therapy: 28 (0723-0929) OT Evaluation Code Rationale: Diagnosis & Pertinent Co-Morbidities affecting Plan of Care: see PMHx Occupational Profile & Client History: Brief Expanded Extensive x Assessment of Occupational Performance: 1-3 performance deficits 3-5 performance deficits x 5 + performance deficits Clinical Decision Making: Low Moderate High x Clinical decision making of moderate complexity using standardized patient assessment instrument and measurable assessment of functional outcome. Pager: [phone] TONG MIKE OT 05/20/2023 Occupational Therapy Rehabilitation [...] on the weekends please page [phone]. * Rylie Rodriguez MD - 05/19/2023 3:59 [...] and plan. Cynthia Blackburn MD Nephrology Pager: [phone] * Diana Espino - 05/19/2023 1:49 PM EDT Professor Of Biochemistry Encounter Note Patient Name: Purnima Thacker : [id number] MR#: [id number] Admit Date: 05/08/2023 9:14 AM Hospital Day [...] as stated. Total Minutes, Physical Therapy: 38 (3914-1027) Hernik Navarrete PTA Pager: [phone] Physical Therapy Inpatient Rehabilitation Department * Nico [...] 0600 and on the weekends please page [phone]. * Laure Ricks PA - 05/19/2023 7:56 [...] Ricks PA-C Interventional Radiology IR Team Pager [phone] * Consuelo Espinoza RN - 05/18/2023 4:13 PM EDT ANGIO NURSING DATABASE Name: Purnima Thacker Date of : 1955 AGE: 67 y.o. Address: [address] [place] [address] (home) Mobile: No relevant phone numbers on [...] fraction I35.0 Mild coronary artery disease by [facility] 11/09/2022 I25.10 Heart failure with [...] and plan. Cynthia Blackburn MD Nephrology Pager: [phone] * Magdalena Puri, GUIDANCE COUNSELOR - 05/18/2023 10:51 AM EDT Images from the original note were not included. [facility] [place] [address] STRUCTURAL HEART DISEASE CONSULTATION NOTE PRIMARY CARE [...] stenosis. She is now status post TAVR Otcrl-dk-Javko with a 23 mm Lai 3 THV 05/12/[address] Sharma. Preliminary findings: Successful right transfemoral TAVR Bawkh-kk-Mkwzc with a 23 mm Lai 3 THV. [...] ejection fraction Mild coronary artery disease by [facility] 11/09/2022 Heart failure with reduced [...] tablet 40 mg 40 mg Oral Daily RandolphMara ernandez APRN 40 mg at 05/18/23 0826 Or pantoprazole (Protonix) injection 40 mg 40 mg Intravenous Daily RandolphMara ernandez APRN 40 mg at 05/12/23 1004 [...] mL 0.5 mL Intramuscular Prior to discharge RandolphMara ernandez APRN FAMILY HISTORY: No family history [...] stenosis. She is now status post TAVR Sbswb-fp-Hpdxf with a 23 mm Lai 3 THV [...] Magdalena Puri APRN Structural Heart Team Pager [phone] Team Office Please see addendum by Dr. Sharma for final plan and recommendations Associated attestation - Antelmo Sharma MD - 05/19/2023 10:52 PM EDT I have reviewed Magdalena Puri APRN's above history and I agree with the details as written. The assessment and plan were formulated in discussion with me and I agree with them as documented. Antelmo Sharma MD Pager [phone] * Nico Palacios PA - 05/18/2023 8:13 [...] 0600 and on the weekends please page [phone]. * Loli Hernandez, PT - 05/17/2023 5:27 [...] plan as stated. Time IN / OUT: 5079-4622 Total Minutes, Physical Therapy: 54 Billing Code: te-sx2, te-f, angely HERNANDEZ PT Pager: [phone] Physical Therapy Inpatient Rehabilitation Department * Cynthia [...] Well controlled. Cynthia Blackburn MD Nephrology Pager: [phone] * Mara Serrano, GUIDANCE COUNSELOR - 05/17/2023 8:26 AM EDT Cardiac Surgery [...] 0600 and on the weekends please page [phone]. * Guerda Del Valle C - 05/16/2023 10:44 AM EDT Nutrition Services Note - Low Nutrition Acuity Purnima Thacker is a 67 y.o. female Reason for intervention: hospital day 9 Nutrition Plan: Continue diet order Encourage good PO Lasix and Zofran noted Added special serve: open containers Monitor weight Patient scheduled for a hospital day 9 nutrition evaluation. Customer Marketing Intern met with pt at bedside. Pt reports that her appetite and PO has much improved since admission. Denies nausea/vomiting or trouble chewing/swallowing. Customer Marketing Intern provided snack list but pt not interested in adding snacks at this time. Her only concern was that she is worried that she will eat too much which will cause too much pressure in her stomach. Customer Marketing Intern assured pt and suggested eating smaller but [...] Last Bowel Movement: 05/10/23 Guerda Del Valle Staff Development Coordinator * Vinod Juárez PA - 05/16/2023 10:19 [...] 0600 and on the weekends please page [phone]. * Michael Jefefrs MD - 05/16/2023 8:11 AM EDT Images from the original note were not included. Hypertension-Nephrology Inpatient Follow-up Purnima Thacker [id number] 1955 ID: 67 y.o. old female seen [...] IRONSAT 12 (L) 05/16/2023 SFOLATE >20.0 07/03/2022 [id number] 07/03/2022 Lab Results Component Value Date [...] Dr. Ayoub. Please contact me at phone: [phone] or pager: [phone] with any questions. Michael Jeffers MD Nephrology [...] -Nephrology consulted, labs and renal US ordered -Benavides removed, ambulated around the unit -bilateral pleural [...] 0600 and on the weekends please page [phone]. * Hortencia Cody MD - 05/15/2023 2:07 [...] not included. Hypertension-Nephrology Inpatient Follow-up Purnima Thacker [id number] 1955 ID: 67 y.o. old female seen [...] HGB 7.8 (L) 05/13/2023 SFOLATE >20.0 07/03/2022 [id number] 07/03/2022 Lab Results Component Value Date [...] Dr. Ayoub. Please contact me at phone: [phone] or pager: [phone] with any questions. Michael Jeffers MD Nephrology [...] outlined inthis evaluation. HAVEN BA, PT Pager: [phone] Physical Therapy Inpatient Rehabilitation Department Time IN / OUT: 1628-9986 Total time: Total Minutes, Physical Therapy: 30 [...] 0600 and on the weekends please page [phone]. * Antelmo Sharma MD - 05/14/2023 7:56 AM EDT Images from the original note were not included. [facility] [place] [address] STRUCTURAL HEART DISEASE CONSULTATION NOTE PRIMARY CARE PROVIDER: Magdlaena Acosta MD REFERRING PROVIDER: Mario Alberto Chin [...] stenosis. She is now status post TAVR Txinn-eu-Qqclm with a 23 mm Lai 3 THV 05/12/[address] Sharma. Preliminary findings: Successful right transfemoral TAVR Gffrm-fy-Hxymj with a 23 mm Lai 3 THV. [...] perforation. Interval Events: - 05/12 Transferred to [facility] post- TAVR for pressor/inotropic support (Levo, [...] ejection fraction Mild coronary artery disease by [facility] 11/09/2022 Heart failure with reduced [...] stenosis. She is now status post TAVR Bydll-mw-Vqyef with a 23 mm Lai 3 THV 05/12/[address] Sharma. Janet TAVR case notable for coronary LAD protective MINNA. Status post TAVR, the patient was transferred to [facility] for pressor and inotropic support. Pressors [...] Brody Kaplan APRN Structural Heart Team Pager [phone] Team Office Please see addendum by Dr. [...] exposure. Nephrology consultationtoday. Antelmo Sharma MD Pager [phone] * Antelmo Cardenas RN - 05/14/2023 5:18 AM EDT Pt AOx4, complaining of mild/moderate generalized pain (states her Meloxicam is effective at home) currently refusing prn oxycodone. NAEON, hemodynamically stable on Milrinone, Maps >65, ST in hbl814's down to NSR with frequent multifocal PVC's. [...] from the original note were not included. [facility] [place] [address] STRUCTURAL HEART DISEASE PROGRESS NOTE PRIMARY CARE [...] stenosis. She is now status post TAVR Zhacq-gt-Vjhsx with a 23 mm Lai 3 THV 05/12/[address] Sharma. Preliminary findings: Successful right transfemoral TAVR Alwgc-ly-Cmctq with a 23 mm Lai 3 THV. [...] ejection fraction Mild coronary artery disease by [facility] 11/09/2022 Heart failure with reduced [...] stenosis. She is now status post TAVR Bzluq-dt-Msrin with a 23 mm Lai 3 THV 05/12/[address] Sharma. Janet TAVR case notable for coronary LAD protective MINNA. Status post TAVR, the patient was transferred to [facility] for pressor and inotropic support. Pressors [...] Brody Kaplan APRN Structural Heart Team Pager [phone] Team Office Please see addendum by Dr. [...] DAPT moving forward. Antelmo Sharma MD Pager [phone] * Bonita Miguel PA - 05/13/2023 8:30 AM EDT Cardiac Surgery Progress Note Purnima Thacker is a 67 y.o. 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 PMH of s/p tissue AVR (2017), mixed connective tissue disease HTN, HLD, NICOLAS, diverticulosis, rosacea, essential tremor, and depression. 24h Events: From laboratory assistant for above procedure Extubated at ~1600 to [...] soft b/l, no evidence of hematoma. Tubes/Lines/Drains: Benavides, RIJ, A-line, Art, PIV Assessment/Plan: 67 y.o. [...] 0600 and on the weekends please page [phone]. * Onelia Schwartz MD - 05/12/2023 1:44 [...] ejection fraction Mild coronary artery disease by [facility] 11/09/2022 Heart failure with reduced [...] FiO2 weaned to 40%. 1105: ABG 7.34/42/73/22 3229-3471: SBT performed and passed on these settings [...] PCP: Magdalena Acosta MD PCP phone number: [phone] Date of Admission: 05/08/2023 ( Hospital Day [...] 1447 PHART -- 7.34* 7.34* -- -- GTW0MVN -- 30* 30* -- -- PO2ART -- 72* 81* -- -- KLQ7WTC -- 16.0* 15.7* -- -- LACTATEVEN 2.4* 2.7* 2.7* 4.8* 2.9* VBG (Venous Blood Gas) Recent Labs 05/12/23 0700 05/12/238 05/12/2310505/11/23193905/11/23 144 LACTATEVEN 2.4* 2.7* 2.7* 4.8* 2.9* Mixed Venous Sat Recent Labs 05/12/23 0508 05/12/23 0321 05/12/23 0114 05/12/23 0030 [id number] 30.7 32.7 37.3 25.1 Objective: Vitals Last [...] who have questions please contact the health pet care associate that requested your imaging first. Cardiac for [...] who have questions please contact the health pet care associate that requested your imaging first. Electronically signed by: Cullen Narayanan MD, [facility] ([phone]), at 05/11/2023 4:[address] Angiogram Abdomen [...] who have questions please contact the health pet care associate that requested your imaging first. Chest One [...] who have questions please contact the health pet care associate that requested your imaging first. Chest One [...] who have questions please contact the health pet care associate that requested your imaging first. Assessment & [...] and inotrope. She is planned for a fwrxf-ba-tircj TAVR this morning, which should hopefully improve [...] MD, FACP, FACC Section of Cardiovascular Medicine [facility] Nip Wrapperneurological physiotherapist [employer] [facility] [employer] at [facility] * Noreen Deutsch RN - 05/12/2023 5:21 [...] ejection fraction Mild coronary artery disease by [facility] 11/09/2022 Heart failure with reduced [...] 05/11/2023 4:11 PM EDT Reported off to CAFETERIA WORKER and pt transferred over in the bed for higher level of care. * Antelmo Sharma MD - 05/11/2023 9:45 AM EDT Images from the original note were not included. [facility] [place] [address] STRUCTURAL HEART DISEASE CONSULTATION NOTE PRIMARY CARE [...] who had been referred for possible TAVR lkhew-nh-ewkpd evaluation. Her primary symptoms are of dyspnea [...] otherwise negative. Ms. Thacker is originally from [facility]. 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 She [...] ejection fraction Mild coronary artery disease by [facility] 11/09/2022 Heart failure with reduced [...] hour(s)) Lactate, whole blood, send to lab ([place] Result Value Ref Range Lactate WB 3.1 (H) 0.5 - 2.2 mmol/L Heparin (unfractionated) Level Result Value Ref Range Heparin UFH Level 0.46 IU/mL Lactate, whole blood, send to lab ([place] Result Value Ref Range Lactate [...] leads Confirmed by MD Harshil, Enrique Bell ([id number]) on 05/10/2023 8:11:46 AM Cardiac Cath 11/09/2022 [...] alert Dr. Hudson of her inpatient status, [place] primary cardiac surgeon. Based on recent clinic visit, tentative plan had been for TAVR JANET issa ferrera given her chronological age. Cardiac cath 11/09/2022 notable for non-obstructive coronary disease. TAVR CTAs planned for today. Will review her case with cardiac surgery to determine best timing and therapies for her valve intervention. Addendum 05/11/2023 6:48 PM Due to decompensating HFrEF, she was transferred to [facility] this afternoon for further management. TAVR CT imaging support for adequate ileofemoral access. Given her acute deterioration today, will planfor RTF TAVR on 05/12/2023. Brody Kaplan APRN Structural Heart Disease Pager [phone] Please see addendum by Dr. Sharma for [...] signed and dated. Antelmo Sharma MD Pager [phone] * Harini Lance MD - 05/11/2023 6:06 AM EDT Images from the original note were not included. Cardiology Progress Note Patient info: Name: Purnima Thacker : 1955 PCP: Magdalena Acosta MD PCP phone number: [phone] Date of Admission: 05/08/2023 ( Hospital Day [...] who have questions please contact the health pet care associate that requested your imaging first. : 05/08 [...] Lance MD Internal Medicine, PGY-1 Cardiology M1-S2, #[id number] 05/11/2023, 6:06 AM Associated attestation - Juan Luis Gonzalez MD - 05/11/2023 10:20 PM EDT Cardiology Attending Addendum Active Hospital Problems Diagnosis Symptomatic severe aortic stenosis with low ejection fraction Heart failure with reduced ejection fraction due to heart valve disease 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, 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) Mild coronary artery disease by [facility] 11/09/2022 Hyperlipidemia, unspecified NICOLAS (obstructive [...] PCP: Magdalena Acosta MD PCP phone number: [phone] Date of Admission: 05/08/2023 ( Hospital Day [...] 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) Mild coronary artery disease by [facility] 11/09/2022 Hyperlipidemia, unspecified NICOLAS (obstructive [...] PCP: Magdalena Acosta MD PCP phone number: [phone] Date of Admission: 05/08/2023 ( Hospital Day [...] Gas) No results found for: PHART, PO2ART, LKC2GIE, UII0JLY Microbiology: Microbiology Results (Last 30 days) No [...] 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) Mild coronary artery disease by [facility] 11/09/2022 Hyperlipidemia, unspecified NICOLAS (obstructive [...] fraction I35.0 Mild coronary artery disease by [facility] 11/09/2022 I25.10 Heart failure with reduced ejection fraction due to heart valve disease I50.20, I38 Cardiogenic shock R57.0 S/P TAVR (transcatheter aortic valve replacement) Z95.2 Past Medical History: Diagnosis Date Anemia Past Surgical History: Procedure Laterality Date PRG CATH PLWA LEFT HEART CATH & ARTS W/INJ & ANGIO IMG S&I N/A 11/09/2022 CORONARY ANGIOGRAPHY; W [facility],POSSIBLE PCI (WRVU 5.6) performed by Mario Alberto Escobedo MD at [facility] CATH LABS PRO AORTOPLAS FOR SUPRAVALV STEN N/A 09/21/2016 @AORTOPLASTY FOR SUPRAVALVULAR STENOSIS (WRVU 29.33) performed by Alirio Hudson MD at [facility] MAIN OR PRO REPLACEMENT PROSTHETIC AORTIC VALVE OPEN W CARDIOPULMONARY BYPASS HOMOGRF/STENT N/A 09/21/2016 @REPLACE AORTIC VALVE, OPEN, W\CPB, W\PROSTHETIC VALVE (WRVU 41.32) performed by Alirio Hudson MD at [facility] MAIN OR Social History and Habits: [...] fraction I35.0 Mild coronary artery disease by [facility] 11/09/2022 I25.10 Heart failure with reduced ejection fraction due to heart valve disease I50.20, I38 Cardiogenic shock R57.0 S/P TAVR (transcatheter aortic valve replacement) Z95.2 Past Medical History: Diagnosis Date Anemia Past Surgical History: Procedure Laterality Date PRG CATH PLWA LEFT HEART CATH & ARTS W/INJ & ANGIO IMG S&I N/A 11/09/2022 CORONARY ANGIOGRAPHY; W [facility],POSSIBLE PCI (WRVU 5.6) performed by Mario Alberto Escobedo MD at [facility] CATH LABS PRO AORTOPLAS FOR SUPRAVALV STEN N/A 09/21/2016 @AORTOPLASTY FOR SUPRAVALVULAR STENOSIS (WRVU 29.33) performed by Alirio Hudson MD at [facility] MAIN OR PRO REPLACEMENT PROSTHETIC AORTIC VALVE OPEN W CARDIOPULMONARY BYPASS HOMOGRF/STENT N/A 09/21/2016 @REPLACE AORTIC VALVE, OPEN, W\CPB, W\PROSTHETIC VALVE (WRVU 41.32) performed by Alirio Hudson MD at [facility] MAIN OR Social History and Habits: [...] days, which prompted her to present to [facility]. She also endorses some intermittent retrosternal chest pain with exertion.She endorses some dizziness with exertion, but has not gotten faint or passed out. At [facility] she was noted to be afebrile, blood pressure 105/64, HR 120s, satting 95% on 2L NC. Labs from [facility] are below, of note she [...] 89/59, which prompted the transfer to us. [facility] labs: CBC - Hgb 10.5 CMP - Cr 1.1 BNP 74073 HsTrop 1358 Lactate 1.6 D-dimer 1183 Interval History Patient was admitted to [facility] due to concern on low BP [...] Klaudia Reid MD Internal Medicine PGY-1 Pager [phone], M1-S1 Service Associated attestation - Juan Luis Gonzalez MD - 05/08/2023 10:00 PM EDT Cardiology Attending Addendum Active Hospital Problems Diagnosis Symptomatic severe aortic stenosis with low ejection fraction Heart failure with reduced ejection fraction due to heart valve disease Mild coronary artery disease by [facility] 11/09/2022 Hyperlipidemia, unspecified History of [...] PCP: Magdalena Acosta MD PCP phone number: [phone] Date of Admission: 05/08/2023 ( Hospital Day 0 days ) Attending:Enrique Chua MD ID: Purnima Thacker is a 67 y.o. female w/ PMH of s/p bioprosthetic AVR in 2016 with recent concern for severe restenosis, HTN, HLD, mixed connective tissue disease, who presents in transfer from [facility] with worsening BONILLA and weight [...] four days, which promptedher to present to [facility]. She also endorses some intermittent retrosternal chest pain with exertion. She endorses some dizziness with exertion, but has not gotten faint or passed out. At [facility] she was noted to be afebrile, blood pressure 105/64, HR 120s, satting 95% on 2L NC. Labs from [facility] are below, of note she [...] 89/59, which prompted the transfer to us. [facility] labs: CBC - Hgb 10.5 CMP - Cr 1.1 BNP 09169 HsTrop 1358 Lactate 1.6 D-dimer 1183 Vasoactive [...] tissue disease, who presents [facility] BONILLA and weight gain [...] to the planned procedure. Hand Hygiene: The tufting supervisor did perform hand hygiene prior to arterial [...] Successful arterial line placement. Crispin Timmons MD Aircrewman Associated attestation - Onelia Schwartz MD - [...] (flow was non-pulsatile) and appearance of blood. Benavides-Marily catheter was placed and locked at 55 [...] information for follow-up [facility] [place] [address] [place] [address] Cardiac Rehab, [place] [id number] [place] [address] [facility], [place] [address] [place] [address] Transportation: family or friend will provide *Brother [...] Type: *No Product type* / Secondary Insurance: [employer] [place] Prescription Coverage: Yes This plan was formulated with input from patient, family (please identify family/friend involved ifapplicable) and team. All are in agreement with plan. Aliza Martino MSN-Ed, RN ACM pie filling mixer Office of Care Management Pager #[phone] * Plan of Care - Favian Mckeon [...] 05/21/2023 4:46 PM EDTS[facility]jack [facility] [place] [facility] referral OFFICE OF CARE MANAGEMENT [...] Type: *No Product type* / Secondary Insurance: Daily Sales Exchange [facility] [place] Last Physical Therapy Recommendation: [...] describing our affiliations within the [facility] and educate about their right to choose where referrals are sent. provide a list of Home Health Agencies / Durable Medical Equipment vendors which serve their preferred geographic area. They have requested referrals to: [facility] [address] [place] [address] [facility] [place], [place] Note routed to a Bleach Boiler Filler who will communicate referrals to facilities and provide any required information. Transportation: family or friend will provide *Brother Raymond on Tuesday 05/22 at 1000 Barriers to discharge: Does not have home 22/02 assist available until tomorrow Tuesday 05/22 Plan going forward: Discharge home into the 22/02 home care of brother Raymond with [facility] and [facility] PT/OT services on Tuesday 05/22 [...] Attending: All Staff: Staff Role Juanita Almaguer Light Rail Signal Technician Laure Ricks PA Physician Yard Hostler Magdalena Rodriguez RN Radiology Nurse Consuelo Espinoza news clipping cutter Nurse Post-operative diagnosis/Indication: Right pleural effusion Name [...] Type: *No Product type* / Secondary Insurance: Xand [facility] [place] Last Physical Therapy Recommendation: long-term facility, swing bed rehabilitation facility with to be determined Last Occupational Therapy Recommendation: with Plan for discharge is: Residential Facility / Swing Outpatient Agency/Support Group Needs: None Agency Referrals: Based on discussions with the multi-disciplinary healthcare team, the patient would benefit from SNF / Swing level of care at discharge. I have met with the patient to: discuss discharge planning needs. provide the [place], Office of Care Management letter from the [employer] Hand Finisher pertaining to rehab referrals. provide a letter describing our affiliations within the [facility] and educate about their right to choose where referrals are sent. provide the CMS Star Quality Rating handout. review the different levels of rehab including SNF, swing, and acute. provide a list of facilities within their preferred geographic area. request that they provide at least three choices for referral. They have requested referrals to: [facility] [address] [place] [address] [facility] ([facility] [address] [place] [address] (Accepts pts only after exhausting all other local SNF options) [facility] (Swing) ([facility]) [address] [place] [address] PHONE: [phone] FAX: [phone] [facility] ([facility]) [facility]) [address] [place] [address] PHONE: [phone] FAX: [phone] Note routed to a Bleach Boiler Filler who will communicate referrals to facilities [...] the outpatient Phase 2 Cardiac Rehabilitation at [facility]. The patient agrees to a [...] the original note were not included. [facility] NEPHROLOGY/HYPERTENSION CONSULT NOTE PATIENT: Purnima [...] in her course. She ultimately underwent a heseo-ni-thkfr procedure on and tolerated it well (see operative details). [facility] and sedated on some pressors [...] 1423 05/12/23 1105 PHART 7.39 7.37 7.34* PNW1CQH 33* 36 42 PO2ART 101 102 73* UTD0PHE 19.5* 20.4 22.1 LACTATEVEN 1.5 1.8 2.8* VKR9YBQ 40 40 40 PFRATIOART2 252 255 182 VBG (Venous Blood Gas) Recent Labs 05/12/23 1557 05/12/23 1423 05/12/23 1105 LACTATEVEN 1.5 1.8 2.8* Mixed Venous Sat Recent Labs 05/12/23 1425 05/12/23 0508 05/12/23 0321 P8CHKB4 59.9 30.7 32.7 LFT's: Recent Labs 05/14/23 0110 05/13/23 0115 05/12/23 0600 BILITOT 0.4 0.5 0.9 BILIDIR -- 0.3 -- ALBUMIN 3.6 3.0* 3.5 ALKPHOS 86 85 100 ALT 437* 903* 1,174* AST 319* 792* 1,435* No results found for: UPROTCREAT No results found for: TPROTEINPEP, ALBELECT No results found for: MICROALBUR, IYHN08DUR No results found for: HA1C Lab Results Component Value Date CALCIUM 8.5 05/14/2023 PHOS 4.7 (H) 05/08/2023 No results found for: 25OHVITD MICROBIOLOGY: ProcedureComponentValueUnitsDate/TimeUrine culture [[id number]]Collected: 05/11/231921Lab Status: Final resultSpecimen: Clean Catch UrineUpdated: [...] consulted for assessment if this patient needs SAMPLE MOUNTER. Atthis time, we can likely hold off on SAMPLE MOUNTER. Her volume status appears sufficient and her metabolic kanwal angements with mild acidosis is not too profound. Patient does not have significant uremic symptoms. We can hold off for today, but the patient is a high risk candidate for needing SAMPLE MOUNTER in future daysespecially if her Cr curve trends the direction it is for the next several days. S/p Fnzgd-uw-Kbves TF TAVR: Management per cardiology. On milrinone gtt. PLAN: - Please obtain following diagnostics: renal US, urinalysis, urine prot/Cr ratio, urine albumin/Cr ratio, CK, uric acid, serum osmol, daily VBGs - No acute indications for SAMPLE MOUNTER/dialysis. We will keep close eye on Cr trend, volume status, and metabolics to ensure patient still does not need SAMPLE MOUNTER as she ensues intrinsic renal recovery - [...] M.H.Katherine., M.A. PGY-V Nephrology-Hypertension Fellow Page # [phone] 2nd floor, Pedigree Researcher [address] [place] [address] * Care Management - Mario Alberto Olmos [...] Product type* / Secondary Insurance: [facility] Plan for discharge is: Home w/o Services [...] for a TAVR at 730. Returned to [facility] at 0945. Was intubated in the laboratory assistant due to agitation. Maintained bedrest for 5 [...] Operative Note Patient Name: Purnima Thacker : [id number] MR#: [id number] Case Date: 05/12/2023 Surgeon: Surgeon(s) and Role: [...] procedure Note: Patient Name: Purnima Thacker : [id number] MR#: [id number] Case Date: 05/12/2023 Operators Surgeon: Surgeon(s) and [...] main with 4.0 x 30 mm Resolute Juniata Drug Eluting Stent Perclose x1 + Angio-seal 8 Fr x1, RFA Manual pressure, LFA Manual pressure, LFV Endotracheal intubation (performed by cardiac anesthesia) Preliminary findings: Successful right transfemoral TAVR Ggegc-xt-Utfpq with a 23 mm Lai 3 THV. [...] MD, M.Sc. Structural Heart Disease Fellow Pager :[phone] Antelmo Sharma MD Pager [phone] * Op Note - Alirio Hudson MD - 05/12/2023 7:37 AM EDT Preop Diagnosis: Severe aortic stenosis, symptomatic. Postop Diagnosis: Same. Procedure: Transfemoral TAVR procedure with 23mm valve. Surgeon: Alirio Hudson M.D. Broker Associate: Danny CULP Procedure: The patient was taken to the laboratory assistant. The patient had monitored anesthesia care. 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 [facility] [place] [address] STRUCTURAL HEART DISEASE CONSULTATION NOTE PRIMARY CARE [...] who had been referred for possible TAVR zxbqg-no-bioys evaluation. Her primary symptoms are of dyspnea [...] otherwise negative. Ms. Thacker is originally from [facility]. 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 PROBLEM LIST: Patient Active Problem List Diagnosis Symptomatic severe aortic stenosis with low ejection fraction Mild coronary artery disease by [facility] 11/09/2022 Heart failure with reduced [...] hour(s)) Lactate, whole blood, send to lab ([place] Result Value Ref Range Lactate [...] leads Confirmed by MD Harshil, Enrique Bell ([id number]) on 05/10/2023 8:11:46 AM Assessment and Plan: [...] for treatment. Will need to alert Dr. uHdson of her inpatient status, [place] primary cardiac surgeon. Based on recent clinic [...] Antelmo Sharma MD Structural Heart Disease Pager [phone] * Plan of Care - Sarahi Nice RN - 05/10/2023 3:55 AM EDTSumavis: RN Note and Care Plan Sarahi Nice RN assumed care of pt at time of their arrival to room 362 from [facility]. Pt voices shortness of breath at [...] VTE (Venous Thromboembolism) Risk Flowsheets (Taken 05/09/2023 8856) VTE Prevention/Management: anticoagulant therapy Intervention: Prevent Infection [...] listening utilized Taken 05/08/20231999 by Alivia Kauffman real estate loan processor/Support System Care: self-care encouraged support provided Problem: [...] Transfer from another hospital Location: admitted from [facility] Reason for Hospitalization: Critical aortic stenosis, causing symptoms Past medical History: Past Medical History: Diagnosis Date Anemia Hospitalizations Within the Past 30 Days: no previous admission in last 30 days Current Decision-Making Capacity: Self If AD's have not been completed the following surrogate would be surrogate decision maker per [place] surrogate decision making law. (Only good for 180 days) Any patient receiving care in [place] must abide by [place] law. The hierarchy for surrogate decision making [...] (i) The agent with financial power of business attorney or a conservator appointed in accordance [...] confirmed as: [address] [place] [address] Social & Family Supports: All names listed [...] Product type* / Secondary Insurance: [facility] ONLY if patient has Medicare A&B - Does this patient have secondary insurance?: Yes ; Prescription Coverage: Yes Preferred Pharmacy: updated to [facility] in [facility] Status: Patient is a : No Primary Care Provider confirmed: Magdalena Acosta MD [phone] Patient/Caregiver Goals of Treatment: Potential Needs for [...] transition of care planning. Alie Bradshaw RN, Pager-[phone] * Plan of Care - Emily Lucero RN - 05/08/2023 2:54 PM EDT OUTCOME EVALUATION NOTE: OUTCOME SUMMARY: Pt arrived from [facility]. A&O, no c/o pain or [...] AM EDT Appointment Hematology [place] [address] 05/12/2024 10:00 AM EDT Office Visit Hematology [place] [address] Markel Borjas MD [facility] [place] [address] 03/01/2025 4:15 PM EDT Office Visit Dermatology at [address] [place] [address] Marek Bonilla MD [address], [place] [address] Scheduled Referrals Name Type Priority Associated Diagnoses [...] Heart Cath W/Inj L Ventriculography, Img S&I ([id number]) 05/12/2023 7:37 AM EDT Aortic valve stenosis, [...] EST Narrative 07/08/2023 12:26 PM EST [address] [place] [address] ? Echocardiogram Report Name: PURNIMA THACKER ?Study Date: 07/08/2023 10:31 AMBP: 118/60 mmHg ? Patient Location: 4A : 1955 ? Height: 155 cm ? Account: [id number] Age: 67 yrs ? Weight: 74 kg Gender: Female ?BSA: 1.7 m2 Ordering Physician: ALIRIO HUDSON Referring Physician: VINOD JUÁREZ Performed By: Felicia Norris RODOLFO Reason For Study: S/P TAVR Exam Location: [facility]. Interpretation Summary Left ventricular [...] no significant change (post-procedure). Procedure Limited - 48304. Doppler - 27439. Color Doppler - 91906. Satisfactory quality. This study is limited because [...] Note Lee Kincaid MD - 07/08/2023 [address] [place] [address] Echocardiogram Report Name: PURNIMA THACKER Study Date: 12/07/333189:31 AMBP: 118/60 mmHg Patient Location: : 1955 Height: 155 cm Account: [id number] Age: 67 yrs Weight: 74 kg Gender: Female BSA: 1.7 m2 Ordering Physician: ALIRIO HUDSON Referring Physician: VINOD JUÁREZ Performed By: Felicia Norris RDCS Reason For Study: S/P TAVR Exam Location: [facility]. Interpretation Summary Left ventricular [...] is nosignificant change (post-procedure). Procedure Limited - 11490. Doppler - 80786. Color Doppler - 57441. Satisfactoryquality. This study is limited because of [...] EST) Glucose 93 65 - 199 mg/dL [facility] Comment:Diabetes: >=200 mg/d L plus symptoms Blood Urea Nitrogen 19(H) 8 - 18 mg/dL [facility] Creatinine 0.81 0.70 - 1.20 mg/dL [facility] Sodium 142 135 - 145 mmol/L [facility] Potassium 3.8 3.5 - 5.0 mmol/L [facility] Comment: Please note: ??Patients with WBC >100,000 may have falsely elevated Potassium levels. ??For accurate Potassium quantification in these patients send serum separator tube (gold top) for subsequent determinations. ??Contact the Clinical Chemistry Laboratory if there are any questions. Chloride 104 98 - 107 mmol/L [facility] Carbon Dioxide 26 22 - 31 mmol/L [facility] Anion Gap 12 5 - 15 mmol/L [facility] Calcium 10.2 8.5 - 10.5 mg/dL [facility] Protein, Total 7.4 6.1 - 8.0 g/dL [facility] Albumin 4.1 3.2 - 5.2 g/dL [facility] Aspartate Aminotransferase 24 0 - 30 unit/L [facility] Alanine Aminotransferase 12 0 - 30 unit/L [facility] Alkaline Phosphatase 93 35 - 105 unit/L [facility] Bilirubin, Total 0.3 0.2 - 1.3 mg/dL [facility] Est Glomerular Filtration Rate 80 >=60 mL/min/1. 73 m?? [facility] Comment: This patient's estimated GFR [...] Lab Alirio Hudson MD CHEMISTRY ORDERABLE S [facility] [place] [address] * (ABNORMAL) Basic Metabolic Panel (non-fasting) (05/22/2023 3:57 AM EDT) Glucose 88 65 - 199 mg/dL [facility] Comment:Diabetes: >=200 mg/d L plus symptoms Blood Urea Nitrogen 21(H) 8 - 18 mg/dL [facility] Creatinine 0.69(L) 0.70 - 1.20 mg/dL [facility] Sodium 136 135 - 145 mmol/L [facility] Potassium 3.6 3.5 - 5.0 mmol/L [facility] Comment: Please note: ??Patients with WBC >100,000 may have falsely elevated Potassium levels. ??For accurate Potassium quantification in these patients send serum separator tube (gold top) for subsequent determinations. ??Contact the Clinical Chemistry Laboratory if there are any questions. Chloride 102 98 - 107 mmol/L [facility] Carbon Dioxide 23 22 - 31 mmol/L [facility] Anion Gap 11 5 - 15 mmol/L [facility] Calcium 8.6 8.5 - 10.5 mg/dL [facility] Est Glomerular Filtration Rate 95 >=60 mL/min/1. 73 m?? [facility] Comment: This patient's estimated GFR [...] Agency Comment Spec In Lab Mara Maggie ANURAG CHEMISTRY ORDERABL ES [facility] [place] [address] * (ABNORMAL) Basic Metabolic Panel (non-fasting) (05/21/2023 5:06 AM EDT) Glucose 87 65 - 199 mg/dL [facility] Comment:Diabetes: >=200 mg/d L plus symptoms Blood Urea Nitrogen 25(H) 8 - 18 mg/dL [facility] Creatinine 0.84 0.70 - 1.20 mg/dL [facility] Sodium 136 135 - 145 mmol/L [facility] Potassium 3.6 3.5 - 5.0 mmol/L [facility] Comment: Please note: ??Patients with WBC >100,000 may have falsely elevated Potassium levels. ??For accurate Potassium quantification in these patients send serum separator tube (gold top) for subsequent determinations. ??Contact the Clinical Chemistry Laboratory if there are any questions. Chloride 102 98 - 107 mmol/L [facility] Carbon Dioxide 26 22 - 31 mmol/L [facility] Anion Gap 8 5 - 15 mmol/L [facility] Calcium 8.9 8.5 - 10.5 mg/dL [facility] Est Glomerular Filtration Rate 76 >=60 mL/min/1. 73 m?? [facility] Comment: This patient's estimated GFR [...] Narrative Resulting Agency Comment Spec In Lab [facility] GUIDANCE COUNSELOR CHEMISTRY ORDERABL ES Performing Organization Address City/[facility]/ZIP Co de Phone Number [facility] [place] [address] * Lavender Tube HOLD (05/20/2023 2:52 AM EDT) Lavender Hold Sample in lab. [facility] Blood Venous Draw / Unknown 05/20/2023 2:52 AM EDT 05/20/2023 3:04 AM EDT [facility] GUIDANCE COUNSELOR HEMATOLOGY ORDERAB LES Performing Organization Address City/[facility]/ZIP Co de Phone Number [facility] [place] [address] * (ABNORMAL) Basic Metabolic Panel (non-fasting) (05/20/2023 2:52 AM EDT) Glucose 152 65 - 199 mg/dL [facility] Comment:Diabetes: >=200 mg/d L plus symptoms Blood Urea Nitrogen 33(H) 8 - 18 mg/dL [facility] Creatinine 0.82 0.70 - 1.20 mg/dL [facility] Sodium 137 135 - 145 mmol/L [facility] Potassium 3.7 3.5 - 5.0 mmol/L [facility] Comment: Please note: ??Patients with WBC >100,000 may have falsely elevated Potassium levels. ??For accurate Potassium quantification in these patients send serum separator tube (gold top) for subsequent determinations. ??Contact the Clinical Chemistry Laboratory if there are any questions. Chloride 99 98 - 107 mmol/L [facility] Carbon Dioxide 22 22 - 31 mmol/L [facility] Anion Gap 16(H) 5 - 15 mmol/L [facility] Calcium 9.0 8.5 - 10.5 mg/dL [facility] Est Glomerular Filtration Rate 78 >=60 mL/min/1. 73 m?? [facility] Comment: This patient's estimated GFR [...] Lab Mara Serrano APRN CHEMISTRY ORDERABL ES [facility] [place] [address] * (ABNORMAL) Potassium (05/20/2023 2:52 AM EDT) Potassium 3.4(L) 3.5 - 5.0 mmol/L [facility] Comment: Please note: ??Patients with WBC >100,000 may have falsely elevated Potassium levels. ??For accurate Potassium quantification in these patients send serum separator tube (gold top) for subsequent determinations. ??Contact the Clinical Chemistry Laboratory if there are any questions. Blood 05/20/2023 2:52 AM EDT 05/20/2023 3:03 AM EDT Narrative Resulting Agency Comment Spec In Lab Mara Serrano GUIDANCE COUNSELOR CHEMISTRY ORDERABL ES [facility] [place] [address] * XR Chest PA & Lateral (Generic) [...] who have questions please contact the health pet care associate that requested your imaging first. [...] patients who have questions please contactthe health pet care associate that requested your imaging first. Alirio Hudson MD IMG DX ORDERABLES * (ABNORMAL) Basic Metabolic Panel (non-fasting) (05/19/2023 5:49 AM EDT) Glucose 93 65 - 199 mg/dL [facility] Comment:Diabetes: >=200 mg/d L plus symptoms Blood Urea Nitrogen 45(H) 8 - 18 mg/dL [facility] Creatinine 1.02 0.70 - 1.20 mg/dL [facility] Sodium 138 135 - 145 mmol/L [facility] Potassium 3.9 3.5 - 5.0 mmol/L [facility] Comment: Please note: ??Patients with WBC >100,000 may have falsely elevated Potassium levels. ??For accurate Potassium quantification in these patients send serum separator tube (gold top) for subsequent determinations. ??Contact the Clinical Chemistry Laboratory if there are any questions. Chloride 102 98 - 107 mmol/L [facility] Carbon Dioxide 26 22 - 31 mmol/L [facility] Anion Gap 10 5 - 15 mmol/L [facility] Calcium 9.7 8.5 - 10.5 mg/dL [facility] Est Glomerular Filtration Rate 60 >=60 mL/min/1. 73 m?? [facility] Comment: This patient's estimated GFR [...] Resulting Agency Comment Spec In Lab [facility] Performing Organization Address City/State/[facility] Co de Phone Number [facility] [place] [address] * IR Chest Tube Placement Right (05/18/2023 [...] Metabolic Panel (non-fasting) (05/18/2023 2:54 AM EDT) Pathologist [facility] Glucose 95 65 - 199 mg/dL [facility] Comment:Diabetes: >=200 mg/d L plus symptoms Blood Urea Nitrogen 71(H) 8 - 18 mg/dL [facility] Comment:result rechecked-[facility] Creatinine 1.64(H) 0.70 - 1.20 mg/dL [facility] Comment:result rechecked-[facility] Sodium 137 135 - 145 mmol/L [facility] Potassium 3.7 3.5 - 5.0 mmol/L [facility] Comment: Please note: ??Patients with WBC >100,000 may have falsely elevated Potassium levels. ??For accurate Potassium quantification in these patients send serum separator tube (gold top) for subsequent determinations. ??Contact the Clinical Chemistry Laboratory if there are any questions. Chloride 100 98 - 107 mmol/L [facility] Carbon Dioxide 24 22 - 31 mmol/L [facility] Anion Gap 13 5 - 15 mmol/L [facility] Calcium 9.7 8.5 - 10.5 mg/dL [facility] Est Glomerular Filtration Rate 34(L) >=60 mL/min/1. 73 m?? [facility] [...] Narrative Resulting Agency Comment Spec In Lab Marakatherine Serrano GUIDANCE COUNSELOR CHEMISTRY ORDERABL ES [facility] [place] [address] * XR Chest PA & Lateral (Generic) [...] who have questions please contact the health pet care associate that requested your imaging first. ? Electronically signed by: Ghassan Reyes MD, [facility] ??([phone]), at 05/17/2023 11:46 AM Narrative 05/17/2023 11:46 [...] patients who have questions please contactthe health pet care associate that requested your imaging first. Alirio Hudson MD IMG DX ORDERABLES * (ABNORMAL) Comprehensive metabolic panel (non-fasting) (05/17/2023 4:35 AM EDT) Glucose 89 65 - 199 mg/dL [facility] Comment:Diabetes: >=200 mg/d L plus symptoms Blood Urea Nitrogen 97(H) 8 - 18 mg/dL [facility] Creatinine 2.97(H) 0.70 - 1.20 mg/dL [facility] Comment:result rechecked-[facility] Sodium 135 135 - 145 mmol/L [facility] Potassium 4.1 3.5 - 5.0 mmol/L [facility] Comment: Please note: ??Patients with WBC >100,000 may have falsely elevated Potassium levels. ??For accurate Potassium quantification in these patients send serum separator tube (gold top) for subsequent determinations. ??Contact the Clinical Chemistry Laboratory if there are any questions. Chloride 97(L) 98 - 107 mmol/L [facility] Carbon Dioxide 22 22 - 31 mmol/L [facility] Anion Gap 16(H) 5 - 15 mmol/L [facility] Calcium 9.6 8.5 - 10.5 mg/dL [facility] Protein, Total 6.5 6.1 - 8.0 g/dL [facility] Albumin 3.7 3.2 - 5.2 g/dL [facility] Aspartate Aminotransferase 58(H) 0 - 30 unit/L [facility] Alanine Aminotransferase 66(H) 0 - 30 unit/L [facility] Alkaline Phosphatase 86 35 - 105 unit/L [facility] Bilirubin, Total 0.6 0.2 - 1.3 mg/dL [facility] Est Glomerular Filtration Rate 17(L) >=60 mL/min/1. 73 m?? [facility] Comment: This patient's estimated GFR [...] CHEMISTRY ORDERABLE S Performing Organization Address [facility] Co de Phone Number [facility] [place] [address] * Potassium (05/16/2023 11:15 PM EDT) Potassium 3.7 3.5 - 5.0 mmol/L [facility] Comment: Please note: ??Patients with [...] CHEMISTRY ORDERABLE S Performing Organization Address [facility] Co de Phone Number [facility] [place] [address] * Magnesium (05/16/2023 5:22 PM EDT) Magnesium 0.96 0.69 - 1.07 mmol/L [facility] Blood 05/16/2023 5:22 PM EDT 05/16/2023 5:27 PM EDT Narrative Resulting Agency Comment Spec In Lab Alirio Hudson MD CHEMISTRY ORDERABLE S Performing Organization Address [facility] Co de Phone Number [facility] [place] [address] * (ABNORMAL) Basic Metabolic Panel (non-fasting) (05/16/2023 5:22 PM EDT) Glucose 106 65 - 199 mg/dL [facility] Comment:Diabetes: >=200 mg/d L plus symptoms Blood Urea Nitrogen 103(H) 8 - 18 mg/dL [facility] Creatinine 3.91(H) 0.70 - 1.20 mg/dL [facility] Comment:result rechecked-imm Sodium 132(L) 135 - 145 mmol/L [facility] Potassium 3.6 3.5 - 5.0 mmol/L [facility] Comment: Please note: ??Patients with WBC >100,000 may have falsely elevated Potassium levels. ??For accurate Potassium quantification in these patients send serum separator tube (gold top) for subsequent determinations. ??Contact the Clinical Chemistry Laboratory if there are any questions. Chloride 92(L) 98 - 107 mmol/L [facility] Carbon Dioxide 22 22 - 31 mmol/L [facility] Anion Gap 18(H) 5 - 15 mmol/L [facility] Calcium 9.7 8.5 - 10.5 mg/dL [facility] Est Glomerular Filtration Rate 12(L) >=60 mL/min/1. 73 m?? [facility] Comment: This patient's estimated GFR [...] Lab Alirio Hudson MD CHEMISTRY ORDERABLE S [facility] [place] [address] * (ABNORMAL) Potassium (05/16/2023 11:43 AM EDT) Potassium 3.3(L) 3.5 - 5.0 mmol/L [facility] Comment: Please note: ??Patients with [...] MD CHEMISTRY ORDERABLE S Performing Organization Address City/[facility]/ZIP Co de Phone Number [facility] [place] [address] * (ABNORMAL) Ferritin (05/16/2023 4:41 AM EDT) Ferritin 1,813(H) 30 - 400 ng/mL [facility] Comment: Pediatric reference ranges not verified at [place], interpret with caution. Reference ranges for females greater than 50 years of age approach values for men, i.e., 30-400 ng/mL. Blood 05/16/2023 4:41 AM EDT 05/16/2023 4:54 AM EDT Narrative Resulting Agency Comment Spec In Lab Kristopher Ayoub MD CHEMISTRY ORDERABLES Performing Organization Address City/[facility]/ZIP Co de Phone Number [facility] [place] [address] * (ABNORMAL) PTH (05/16/2023 4:41 AM EDT) [facility] Parathyroid Hormone 120(H) 15 - 65 pg/mL [facility] Blood 05/16/2023 4:41 AM EDT 05/16/2023 4:54 AM EDT Narrative Resulting Agency Comment Spec In Lab Kristopher Ayoub MD CHEMISTRY ORDERABLES Performing Organization Address City/[facility]/ZIP Co de Phone Number [facility] [place] [address] * Vitamin D, 25-Hydroxy (05/16/2023 4:41 AM EDT) [facility] Vitamin D Total 25 OH 33 21 - 100 ng/mL [facility] Vit D Interp Sufficient [facility] Blood 05/16/2023 4:41 AM EDT 05/16/2023 4:54 AM EDT Narrative Resulting Agency Comment Spec In Lab Kristopher Ayoub MD CHEMISTRY ORDERABLES [facility] [place] [address] * (ABNORMAL) Blood Gas Venous ([facility]) (05/16/2023 4:22 AM EDT) pH, Venous 7.41 7.32 - 7.42 [facility] PCO2, Venous 32(L) 41 - 51 mmHg [facility] PO2, Venous 73(H) 25 - 40 mmHg [facility] Bicarbonate, Venous 19.6 mmol/L [facility] Base Excess, Venous -5.1 mmol/L [facility] Hgb Blood Gas 9.7(L) 11.7 - 15.5 g/dL [facility] Oxyhemoglobin, Venous 92.8 % [facility] Carboxyhemoglob in, Venous 0.1 % [facility] Comment: Nonsmokers: 0.5-1.5% COHB Smokers: Variable, but usually less than 10% Toxic: 20-30% COHB Lethal: Greater than 60% COHB Methemoglobin, Venous 0.3 <=1.5 % [facility] Na Whole Blood 130(L) 135 - 145 mmol/L [facility] K Whole Blood 3.7 3.5 - 5.0 mmol/L [facility] Comment: Please note: Patients with WBC >100,000 may have falsely elevated Potassium levels. Contact the Clinical Chemistry Laboratory if there are any questions. ICa Whole Blood 1.15 1.15 - 1.33 mmol/L [facility] Comment: Note: ??Total bilirubin higher than 20 mg/dL may lead to falsely low ionized calcium. CL Whole Blood 95(L) 98 - 107 mmol/L [facility] Gluc Whole Bld 82 65 - 199 mg/dL [facility] Comment:Diabetes: >=200 mg/d L plus symptoms Lactate WB 1.1 0.5 - 2.2 mmol/L [facility] Blood Gas Source Venous [facility] Blood Venous Draw / Unknown 05/16/2023 4:22 AM EDT 05/16/2023 4:31 AM EDT Narrative Resulting Agency Comment Spec In Lab Bonita [place] [address] * (ABNORMAL) Differential, Automated (05/16/2023 4:20 AM EDT) Neutrophil % 84.1 % [facility] Neutrophil Absolute 6.22(H) 1.70 - 6.10 x10(3)/mc L [facility] Lymph % 5.8 % [facility] Lymphocytes Abs 0.4(L) 0.9 - 3.2 x10(3)/mc L [facility] Monocyte % 8.8 % [facility] Monocyte Abs 0.6 0.3 - 0.9 x10(3)/mc L [facility] Eos % 0.4 % [facility] Eosinophils Abs 0.0 0.0 - 0.4 x10(3)/mc L [facility] Basophil % 0.0 % [facility] Baso Absolute 0.0 0.0 - 0.1 x10(3)/mc L [facility] Immature Gran % 0.90 % [facility] Comment: Immature granulocytes(IG's)percentage and absolute count will include metamyelocytes, myelocytes, and promyelocytes. Blood smears from CBCs yielding IG's will be scanned manually for concordance. If this scan disagrees with the automated IG or if promyelocytes are noted, a manual differential will be performed. Immature Gran Absolute 0.07(H) 0.00 - 0.04 x10(3)/mc L [facility] Blood 05/16/2023 4:20 AM EDT 05/16/2023 4:29 AM EDT Narrative Resulting Agency Comment Spec In Lab James Agustin MD HEMATOLOGY ORDER JODIE Performing Organization Address City/[facility]/[place] [address] * (ABNORMAL) Hemogram (05/16/2023 4:20 AM EDT) White Blood Cell 7.4 4.0 - 9.5 x10(3)/mc L [facility] Red Blood Cell 2.40(L) 4.00 - 5.21 x10(6)/mc L [facility] Hemoglobin 7.8(L) 11.7 - 15.5 g/dL [facility] Hematocrit 22.5(L) 35.7 - 45.8 % [facility] Mean Cell Volume 93.8 82.6 - 94.4 fL [facility] Mean Cell Hemoglobin 32.5(H) 27.1 - 32.0 pg [facility] Mean Cell Hemoglobin Concentration 34.7 31.7 - 35.0 g/dL [facility] Platelet 120(L) 145 - 357 x10(3)/mc L [facility] RDW Standard Deviation 42.9 37.0 - 46.0 fL [facility] RDW coefficient of variation 12.9 11.5 - 14.1 % [facility] Mean Platelet Volume 11.3 7.6 - 12.9 fL [facility] NRBC% auto 0.7 % [facility] NRBC Absolute 0.050(H) 0.000 - 0.000 x10(3)/ L [facility] Blood 05/16/2023 4:20 AM EDT 05/16/2023 4:29 AM EDT Narrative Resulting Agency Comment Spec In Lab James Agustin MD HEMATOLOGY ORDER JODIE [facility] [place] [address] * (ABNORMAL) Basic Metabolic Panel (non-fasting) (05/16/2023 4:20 AM EDT) Glucose 89 65 - 199 mg/dL [facility] Comment:Diabetes: >=200 mg/d L plus symptoms Blood Urea Nitrogen 108(H) 8 - 18 mg/dL [facility] Creatinine 4.74(H) 0.70 - 1.20 mg/dL [facility] Comment:result rechecked-[facility] Sodium 132(L) 135 - 145 mmol/L [facility] Potassium 3.9 3.5 - 5.0 mmol/L [facility] Comment: Please note: ??Patients with WBC >100,000 may have falsely elevated Potassium levels. ??For accurate Potassium quantification in these patients send serum separator tube (gold top) for subsequent determinations. ??Contact the Clinical Chemistry Laboratory if there are any questions. Chloride 95(L) 98 - 107 mmol/L [facility] Carbon Dioxide 18(L) 22 - 31 mmol/L [facility] Anion Gap 19(H) 5 - 15 mmol/L [facility] Calcium 9.2 8.5 - 10.5 mg/dL [facility] Est Glomerular Filtration Rate 10(L) >=60 mL/min/1. 73 m?? [facility] Comment: This patient's estimated GFR [...] Lab Alirio Hudson MD CHEMISTRY ORDERABLE S [facility] [place] [address] * (ABNORMAL) Iron and TIBC (05/16/2023 4:20 AM EDT) Iron 31 30 - 150 mcg/dL [facility] TIBC 259 250 - 450 mcg/dL [facility] Iron Saturation 12(L) 20 - 50 % [facility] Blood 05/16/2023 4:20 AM EDT 05/16/2023 4:29 AM EDT Narrative Resulting Agency Comment Spec In Lab Kristopher Ayoub MD CHEMISTRY ORDERABLES [facility] [place] [address] * (ABNORMAL) Basic Metabolic Panel (non-fasting) (05/15/2023 12:50 AM EDT) Glucose 101 65 - 199 mg/dL [facility] Comment:Diabetes: >=200 mg/d L plus symptoms Blood Urea Nitrogen 109(H) 8 - 18 mg/dL [facility] Creatinine 5.62(H) 0.70 - 1.20 mg/dL [facility] Comment:result rechecked-[place] Sodium 131(L) 135 - 145 mmol/L [facility] Comment:result rechecked-[place] Potassium 3.7 3.5 - 5.0 mmol/L [facility] Comment: result rechecked-[place] Please note: ??Patients with WBC >100,000 may have falsely elevated Potassium levels. ??For accurate Potassium quantification in these patients send serum separator tube (gold top) for subsequent determinations. ??Contact the Clinical Chemistry Laboratory if there are any questions. Chloride 92(L) 98 - 107 mmol/L [facility] Comment:result rechecked-[place] Carbon Dioxide 18(L) 22 - 31 mmol/L [facility] Comment:result rechecked-[place] Anion Gap 21(H) 5 - 15 mmol/L [facility] Calcium 8.9 8.5 - 10.5 mg/dL [facility] Est Glomerular Filtration Rate 8(L) >=60 mL/min/1. 73 m?? [facility] Comment: This patient's estimated GFR [...] MD CHEMISTRY ORDERABLE S Performing Organization Address City/[facility]/ZIP Co de Phone Number [facility] [place] [address] * (ABNORMAL) Hemogram (05/15/2023 12:50 AM EDT) White Blood Cell 9.1 4.0 - 9.5 x10(3)/mc L [facility] Red Blood Cell 2.19(L) 4.00 - 5.21 x10(6)/mc L [facility] Hemoglobin 7.2(L) 11.7 - 15.5 g/dL [facility] Hematocrit 20.6(L) 35.7 - 45.8 % [facility] Mean Cell Volume 94.1 82.6 - 94.4 fL [facility] Mean Cell Hemoglobin 32.9(H) 27.1 - 32.0 pg [facility] Mean Cell Hemoglobin Concentration 35.0 31.7 - 35.0 g/dL [facility] Platelet 109(L) 145 - 357 x10(3)/mc L [facility] RDW Standard Deviation 43.6 37.0 - 46.0 fL [facility] RDW coefficient of variation 12.9 11.5 - 14.1 % [facility] Mean Platelet Volume 10.4 7.6 - 12.9 fL [facility] NRBC% auto 2.1 % [facility] NRBC Absolute 0.190(H) 0.000 - 0.000 x10(3)/mc L [facility] Blood 05/15/2023 12:5 0 AM EDT 05/15/2023 12:52 AM EDT Narrative Resulting Agency Comment Spec In Lab Alirio Hudson MD HEMATOLOGY ORDERABL ES Performing Organization Address [facility] Co de Phone Number [facility] [place] [address] * (ABNORMAL) BLOOD GAS 2 VENOUS (05/15/2023 12:49 AM EDT) pH, Venous 7.33 7.32 - 7.42 [facility] PCO2, Venous 37(L) 41 - 51 mmHg [facility] PO2, Venous 34 25 - 40 mmHg [facility] Bicarbonate, Venous 19.1 mmol/L [facility] Base Excess, Venous -6.8 mmol/L [facility] Hgb Blood Gas 10.8(L) 11.7 - 15.5 g/dL [facility] Oxyhemoglobin, Venous 58.1 % [facility] Carboxyhemoglob in, Venous 0.3 % [facility] Comment: Nonsmokers: 0.5-1.5% COHB Smokers: Variable, but usually less than 10% Toxic: 20-30% COHB Lethal: Greater than 60% COHB Methemoglobin, Venous 0.6 <=1.5 % [facility] Na Whole Blood 136 135 - 145 mmol/L [facility] K Whole Blood 3.7 3.5 - 5.0 mmol/L [facility] Comment: Please note: Patients with WBC >100,000 may have falsely elevated Potassium levels. Contact the Clinical Chemistry Laboratory if there are any questions. ICa Whole Blood 1.12(L) 1.15 - 1.33 mmol/L [facility] Comment: Note: ??Total bilirubin higher than 20 mg/dL may lead to falsely low ionized calcium. CL Whole Blood 95(L) 98 - 107 mmol/L [facility] Gluc Whole Bld 101 65 - 199 mg/dL [facility] Comment:Diabetes: >=200 mg/d L plus symptoms Lactate WB 1.3 0.5 - 2.2 mmol/L [facility] Flow, Mike 1.0 LPM [facility] Blood Gas Source Venous [facility] Blood 05/15/2023 12:4 9 AM EDT 05/15/2023 12:49 AM EDT Alirio Hudson MD POINT OF CARE TEST ORDERABLES [facility] [place] [place] [address] * US Retroperitoneal Complete (05/14/2023 3:53 PM [...] who have questions, please contact the health pet care associate that requested your imaging first. ? Hayden Robledo, Staff Physician Electronically Signed Final Report ?? 05/14/2023 04:39 pm Narrative 05/14/2023 4:39 PM EDT Renal ? (Signed Final 05/14/2023 04:39 pm) PATIENT INFO: ID #: ? [id number] ?: ??55 (67 yrs)(F) Name: ? PURNIMA THACKER ?Visit Date: 05/14/2023 03:44 pm PERFORMED BY: Attending: ?Meena CULP, Hayden Stafford Resident: ? Nell CULP, Anand August Performed By: ? Consuelo Tello RDMS Referred By: ?ALIRIO HUDSON Location: ? [place] SERVICE(S) PROVIDED: URETRO - Retroperitoneal Complete - [id number] ? [id number] INDICATIONS: EVANS COMPARISON: CT: Abdomen/Pelvis 05/11/23 RIGHT [...] 05/14/2023 04:39 pm) PATIENT INFO: ID #: [id number] : 55 (67 yrs)(F) Name: PURNIMA THACKER Visit Date: 05/14/2023 03:44 pm PERFORMED BY: Attending: Hayden Robledo MD Resident: Anand Camejo MD Performed By: Consuelo Tello RDMS Referred By: ALIRIO HUDSON Location: [place] SERVICE(S) PROVIDED: URETRO - Retroperitoneal Complete - [id number] INDICATIONS: EVANS COMPARISON: CT: Abdomen/Pelvis 05/11/23 RIGHT [...] who have questions, please contact the health pet care associate that requested your imaging first. Hayden Robledo, Staff Physician Electronically Signed Final Report 05/14/2023 04:39 pm Alirio Hudson MD IMG US GEN ORDERABL ES * CK (05/14/2023 3:17 PM EDT) Creatine Kinase 123 0 - 160 unit/L [facility] Blood 05/14/2023 3:17 PM EDT 05/14/2023 3:31 PM EDT Narrative Resulting Agency Comment Spec In Lab Alirio Hudson MD CHEMISTRY ORDERABLE S Performing Organization Address [facility] Co de Phone Number [facility] [place] [address] * (ABNORMAL) Uric acid (05/14/2023 3:17 PM EDT) Uric Acid 14.9(H) 2.5 - 6.5 mg/dL [facility] Blood 05/14/2023 3:17 PM EDT 05/14/2023 3:31 PM EDT Narrative Resulting Agency Comment Spec In Lab Alirio Hudson MD CHEMISTRY ORDERABLE S Performing Organization Address [facility] [place] [address] * (ABNORMAL) Osmolality (05/14/2023 3:17 PM EDT) Osmolality 311(H) 275 - 295 mOsm/kg [facility] Blood 05/14/2023 3:17 PM EDT 05/14/2023 3:31 PM EDT Narrative Resulting Agency Comment Spec In Lab Alirio Hudson MD [place] [address] * (ABNORMAL) Differential, Automated (05/14/2023 1:10 AM EDT) Pathologist [facility] Neutrophil % 87.2 % [facility] Neutrophil Absolute 9.74(H) 1.70 - 6.10 x10(3)/mc L [facility] Lymph % 3.9 % [facility] Lymphocytes Abs 0.4(L) 0.9 - 3.2 x10(3)/mc L [facility] Monocyte % 7.9 % [facility] Monocyte Abs 0.9 0.3 - 0.9 x10(3)/mc L [facility] Eos % 0.0 % [facility] Eosinophils Abs 0.0 0.0 - 0.4 x10(3)/mc L [facility] Basophil % 0.1 % [facility] Baso Absolute 0.0 0.0 - 0.1 x10(3)/mc L [facility] Immature Gran % 0.90 % [facility] Comment: Immature granulocytes(IG's)percentage and absolute count will include metamyelocytes, myelocytes, and promyelocytes. Blood smears from CBCs yielding IG's will be scanned manually for concordance. If this scan disagrees with the automated IG or if promyelocytes are noted, a manual differential will be performed. Immature Gran Absolute 0.10(H) 0.00 - 0.04 x10(3)/mc L [facility] Blood 05/14/2023 1:10 AM EDT 05/14/2023 1:24 AM EDT Narrative Resulting Agency Comment Spec In Lab Bonita TOBAR HEMATOLOGY ORDERABLE S [facility] [place] [address] * (ABNORMAL) Hemogram (05/14/2023 1:10 AM EDT) White Blood Cell 11.2(H) 4.0 - 9.5 x10(3)/mc L [facility] Red Blood Cell 2.19(L) 4.00 - 5.21 x10(6)/mc L [facility] Hemoglobin 7.2(L) 11.7 - 15.5 g/dL [facility] Hematocrit 20.3(L) 35.7 - 45.8 % [facility] Mean Cell Volume 92.7 82.6 - 94.4 fL [facility] Mean Cell Hemoglobin 32.9(H) 27.1 - 32.0 pg [facility] Mean Cell Hemoglobin Concentration 35.5(H) 31.7 - 35.0 g/dL [facility] Platelet 112(L) 145 - 357 x10(3)/mc L [facility] RDW Standard Deviation 41.4 37.0 - 46.0 fL [facility] RDW coefficient of variation 12.5 11.5 - 14.1 % [facility] Mean Platelet Volume 10.4 7.6 - 12.9 fL [facility] NRBC% auto 1.5 % [facility] NRBC Absolute 0.170(H) 0.000 - 0.000 x10(3)/mc L [facility] Blood 05/14/2023 1:10 AM EDT 05/14/2023 1:24 AM EDT Narrative Resulting Agency Comment Spec In Lab Bonita TOBAR HEMATOLOGY ORDERABLE S [facility] [place] [address] * (ABNORMAL) Comprehensive metabolic panel (non-fasting) (05/14/2023 1:10 AM EDT) Glucose 120 65 - 199 mg/dL [facility] Comment:Diabetes: >=200 mg/d L plus symptoms Blood Urea Nitrogen 98(H) 8 - 18 mg/dL [facility] Creatinine 4.80(H) 0.70 - 1.20 mg/dL [facility] Comment:result rechecked-ssc Sodium 132(L) 135 - 145 mmol/L [facility] Potassium 4.1 3.5 - 5.0 mmol/L [facility] Comment: Please note: ??Patients with WBC >100,000 may have falsely elevated Potassium levels. ??For accurate Potassium quantification in these patients send serum separator tube (gold top) for subsequent determinations. ??Contact the Clinical Chemistry Laboratory if there are any questions. Chloride 94(L) 98 - 107 mmol/L [facility] Carbon Dioxide 18(L) 22 - 31 mmol/L [facility] Anion Gap 20(H) 5 - 15 mmol/L [facility] Calcium 8.5 8.5 - 10.5 mg/dL [facility] Protein, Total 5.8(L) 6.1 - 8.0 g/dL [facility] Albumin 3.6 3.2 - 5.2 g/dL [facility] Aspartate Aminotransferase 319(H) 0 - 30 unit/L [facility] Alanine Aminotransferase 437(H) 0 - 30 unit/L [facility] Alkaline Phosphatase 86 35 - 105 unit/L [facility] Bilirubin, Total 0.4 0.2 - 1.3 mg/dL [facility] Est Glomerular Filtration Rate 9(L) >=60 mL/min/1. 73 m?? [facility] Comment: This patient's estimated GFR [...] CHEMISTRY ORDERABLE S Performing Organization Address [facility] Co de Phone Number [facility] [place] [address] * APTT (05/13/2023 10:15 AM EDT) Partial Thromboplastin Time 27 25 - 37 sec [facility] Comment: The PTT is NOT appropriate for heparin monitoring. Use the Anti-Xa level for heparin monitoring (HEP UFH) or LMWH monitoring (HEP LMW). A PTT less than 37 seconds generally indicates adequate hemostasis. Blood 05/13/2023 10:1 5 AM EDT 05/13/2023 10:46 AM EDT Narrative Resulting Agency Comment Spec In Lab Alirio Hudson MD HEMATOLOGY ORDERABL ES Performing Organization Address [facility] Co de Phone Number [facility] [place] [address] * (ABNORMAL) Prothrombin Time (05/13/2023 10:15 AM EDT) Prothrombin Time 14.6(H) 9.4 - 12.5 sec [facility] International Normalization Ratio 1.3 [facility] Comment: An INR <2.0 indicates [...] HEMATOLOGY ORDERABL ES Performing Organization Address [facility] Co de Phone Number [facility] [place] [address] * EKG 12 Lead (05/13/2023 9:22 AM EDT) Pathologist [facility] Ventricular rate 92 BPM MUSE SYSTEM Atrial Rate 92 BPM MUSE SYSTEM P-R Interval 140 ms MUSE SYSTEM QRS Duration 104 ms MUSE SYSTEM Q-T Interval 384 ms MUSE SYSTEM QTC Calculated (Bezet) 474 ms MUSE SYSTEM Calculated P Interior 33 degrees MUSE SYSTEM Calculated R Interior 41 degrees MUSE SYSTEM Calculated T Interior -35 degrees MUSE SYSTEM INTERPRETATION Sinus rhythm with frequent Premature ventricular complexes Septal infarct , age undetermined ST & T wave abnormality, consider lateral ischemia Abnormal ECG When compared with ECG of 12-MAY-2023 10:10, Premature ventricular complexes are now Present I personally reviewed the tracing and edited the fellows interpretation Confirmed by fellow MD Anitha, Carissa ([id number]) on 05/13/2023 3:25:30 PM Confirmed by Maxx Best ([id number]) on 05/13/2023 8:30:56 PM MUSE SYSTEM 05/13/2023 9:22 AM EDT 05/13/2023 8:30 PM EDT Alirio Hudson MD ECG ORDERABLES MUSE SYSTEM * (ABNORMAL) Differential, Automated (05/13/2023 1:15 AM EDT) [facility] Neutrophil % 88.1 % [facility] Neutrophil Absolute 7.62(H) 1.70 - 6.10 x10(3)/mc L [facility] Lymph % 3.1 % [facility] Lymphocytes Abs 0.3(L) 0.9 - 3.2 x10(3)/mc L [facility] Monocyte % 7.9 % [facility] Monocyte Abs 0.7 0.3 - 0.9 x10(3)/mc L [facility] Eos % 0.0 % [facility] Eosinophils Abs 0.0 0.0 - 0.4 x10(3)/mc L [facility] Basophil % 0.1 % [facility] Baso Absolute 0.0 0.0 - 0.1 x10(3)/mc L [facility] Immature Gran % 0.80 % [facility] Comment: Immature granulocytes(IG's)percentage and absolute count will include metamyelocytes, myelocytes, and promyelocytes. Blood smears from CBCs yielding IG's will be scanned manually for concordance. If this scan disagrees with the automated IG or if promyelocytes are noted, a manual differential will be performed. Immature Gran Absolute 0.07(H) 0.00 - 0.04 x10(3)/mc L [facility] Blood 05/13/2023 1:15 AM EDT 05/13/2023 1:29 AM EDT Narrative Resulting Agency Comment Spec In Lab Lorri TOBAR HEMATOLOGY ORDERABLE S [facility] [place] [address] * (ABNORMAL) Hemogram (05/13/2023 1:15 AM EDT) White Blood Cell 8.6 4.0 - 9.5 x10(3)/[facility] Red Blood Cell 2.37(L) 4.00 - 5.21 x10(6)/[facility] Hemoglobin 7.8(L) 11.7 - 15.5 g/dL [facility] Hematocrit 22.2(L) 35.7 - 45.8 % [facility] Mean Cell Volume 93.7 82.6 - 94.4 fL [facility] Mean Cell Hemoglobin 32.9(H) 27.1 - 32.0 pg [facility] Mean Cell Hemoglobin Concentration 35.1(H) 31.7 - 35.0 g/dL [facility] Platelet 130(L) 145 - 357 x10(3)/[facility] RDW Standard Deviation 41.7 37.0 - 46.0 fL [facility] RDW coefficient of variation 12.5 11.5 - 14.1 % [facility] Mean Platelet Volume 10.2 7.6 - 12.9 fL [facility] NRBC% auto 0.5 % [facility] NRBC Absolute 0.040(H) 0.000 - 0.000 x10(3)/ L [facility] Blood 05/13/2023 1:15 AM EDT 05/13/2023 1:29 AM EDT Narrative Resulting Agency Comment Spec In Lab Lorri TOBAR HEMATOLOGY ORDERABLE S Performing Organization Address City/[facility]/ZIP Co de Phone Number [facility] [place] [address] * (ABNORMAL) Hepatic Function Panel (05/13/2023 1:15 AM EDT) Protein, Total 5.5(L) 6.1 - 8.0 g/dL [facility] Albumin 3.0(L) 3.2 - 5.2 g/dL [facility] Aspartate Aminotransferase 792(H) 0 - 30 unit/L [facility] Alanine Aminotransferase 903(H) 0 - 30 unit/L [facility] Alkaline Phosphatase 85 35 - 105 unit/L [facility] Bilirubin, Total 0.5 0.2 - 1.3 mg/dL [facility] Bilirubin, Direct 0.3 0.0 - 0.3 mg/dL [facility] Blood 05/13/2023 1:15 AM EDT 05/13/2023 1:29 AM EDT Narrative Resulting Agency Comment Spec In Lab Alirio Hudson MD CHEMISTRY ORDERABLE S Performing Organization Address [facility] Co de Phone Number [facility] [place] [address] * (ABNORMAL) Basic Metabolic Panel (non-fasting) (05/13/2023 1:15 AM EDT) Glucose 107 65 - 199 mg/dL [facility] Comment:Diabetes: >=200 mg/d L plus symptoms Blood Urea Nitrogen 82(H) 8 - 18 mg/dL [facility] Creatinine 3.15(H) 0.70 - 1.20 mg/dL [facility] Comment:result rechecked-OG Sodium 132(L) 135 - 145 mmol/L [facility] Potassium 3.8 3.5 - 5.0 mmol/L [facility] Comment: Please note: ??Patients with WBC >100,000 may have falsely elevated Potassium levels. ??For accurate Potassium quantification in these patients send serum separator tube (gold top) for subsequent determinations. ??Contact the Clinical Chemistry Laboratory if there are any questions. Chloride 95(L) 98 - 107 mmol/L [facility] Carbon Dioxide 20(L) 22 - 31 mmol/L [facility] Anion Gap 17(H) 5 - 15 mmol/L [facility] Calcium 8.3(L) 8.5 - 10.5 mg/dL [facility] Est Glomerular Filtration Rate 16(L) >=60 mL/min/1. 73 m?? [facility] Comment: This patient's estimated GFR [...] Lab Alirio Hudson MD CHEMISTRY ORDERABLE S [facility] [place] [address] * (ABNORMAL) BLOOD GAS 2 ARTERIAL (05/12/2023 3:57 PM EDT) pH, Arterial 7.39 7.35 - 7.45 [facility] PCO2, Arterial 33(L) 35 - 45 mmHg [facility] PO2, Arterial 101 85 - 104 mmHg [facility] Bicarbonate, Arterial 19.5(L) 20.0 - 26.0 mmol/L [facility] Base Excess, Arterial -5.5(L) -3.0 - 3.0 mmol/L [facility] Hgb Blood Gas 9.8(L) 11.7 - 15.5 g/dL [facility] Oxyhemoglobin, Arterial 95.2 94.0 - 97.0 % [facility] Carboxyhemoglob in, Arterial 0.2 % [facility] Comment: Nonsmokers: 0.5-1.5% COHB Smokers: Variable, but usually less than 10% Toxic: 20-30% COHB Lethal: Greater than 60% COHB Methemoglobin, Arterial 0.8 <=1.5 % [facility] Na Whole Blood 129(L) 135 - 145 mmol/L [facility] K Whole Blood 3.8 3.5 - 5.0 mmol/L [facility] Comment: Please note: Patients with WBC >100,000 may have falsely elevated Potassium levels. Contact the Clinical Chemistry Laboratory if there are any questions. ICa Whole Blood 1.05(L) 1.15 - 1.33 mmol/L [facility] Comment: Note: ??Total bilirubin higher than 20 mg/dL may lead to falsely low ionized calcium. CL Whole Blood 96(L) 98 - 107 mmol/L [facility] Gluc Whole Bld 178 65 - 199 mg/dL [facility] Comment:Diabetes: >=200 mg/d L plus symptoms. Lactate WB 1.5 0.5 - 2.2 mmol/L [facility] FIO2 Art 40 % [facility] PF Ratio Art 252 [facility] Blood 05/12/2023 3:57 PM EDT 05/12/2023 3:57 PM EDT Alirio Hudson MD POINT OF CARE TEST ORDERABLES Performing Organization Address City/State/[facility] Co de Phone Number [facility] [place] [address] * (ABNORMAL) Coox2 (05/12/2023 2:25 PM EDT) pO2, Coox 37 mmHg [facility] Hgb Blood Gas 9.5(L) 11.7 - 15.5 g/dL [facility] Oxyhemoglobin, Coox 59.9 % [facility] Carboxyhemoglo bin, Coox 0.3 % [facility] Comment: Nonsmokers: 0.5-1.5% COHB Smokers: Variable, but usually less than 10% Toxic: 20-30% COHB Lethal: Greater than 60% COHB Methemoglobin, Coox 0.7 <=1.5 % [facility] Source Coox Mixed Venous [facility] Blood 05/12/2023 2:25 PM EDT 05/12/2023 2:25 PM EDT Alirio Hudson MD POINT OF CARE TEST ORDERABLES [facility] [address] [place] [address] * (ABNORMAL) BLOOD GAS 2 ARTERIAL (05/12/2023 2:23 PM EDT) pH, Arterial 7.37 7.35 - 7.45 [facility] PCO2, Arterial 36 35 - 45 mmHg [facility] PO2, Arterial 102 85 - 104 mmHg [facility] Bicarbonate, Arterial 20.4 20.0 - 26.0 mmol/L [facility] Base Excess, Arterial -4.8(L) -3.0 - 3.0 mmol/L [facility] Hgb Blood Gas 12.7 11.7 - 15.5 g/dL [facility] Oxyhemoglobin, Arterial 95.4 94.0 - 97.0 % [facility] Carboxyhemoglob in, Arterial 0.3 % [facility] Comment: Nonsmokers: 0.5-1.5% COHB Smokers: Variable, but usually less than 10% Toxic: 20-30% COHB Lethal: Greater than 60% COHB Methemoglobin, Arterial 0.7 <=1.5 % [facility] Na Whole Blood 129(L) 135 - 145 mmol/L [facility] K Whole Blood 3.7 3.5 - 5.0 mmol/L [facility] Comment: Please note: Patients with WBC >100,000 may have falsely elevated Potassium levels. Contact the Clinical Chemistry Laboratory if there are any questions. ICa Whole Blood 1.05(L) 1.15 - 1.33 mmol/L [facility] Comment: Note: ??Total bilirubin higher than 20 mg/dL may lead to falsely low ionized calcium. CL Whole Blood 95(L) 98 - 107 mmol/L [facility] Gluc Whole Bld 168 65 - 199 mg/dL [facility] Comment:Diabetes: >=200 mg/d L plus symptoms. Lactate WB 1.8 0.5 - 2.2 mmol/L [facility] FIO2 Art 40 % [facility] PF Ratio Art 255 [facility] Blood 05/12/2023 2:23 PM EDT 05/12/2023 2:23 PM EDT Alirio Hudson MD POINT OF CARE TEST ORDERABLES [facility] [place] [address] * (ABNORMAL) Troponin (05/12/2023 2:05 PM EDT) Troponin-T, High Sensitivity 1,022(H) <=14 ng/L [facility] Comment: This patient's troponin T [...] troponin value can be found in the [facility] Test Catalog Troponin - [facility] Test Catalog Reference: Fourth [place] Definition of Myocardial Infarction. Journal of the [place] [employer] 2018;72:5012-8013 Blood 05/12/2023 2:05 PM EDT 05/12/2023 2:14 PM EDT Narrative Resulting Agency Comment Spec In Lab Alirio Hudson MD CHEMISTRY ORDERABLE S Performing Organization Address City/[facility]/ZIP Co de Phone Number [facility] [place] [address] * (ABNORMAL) Hemoglobin (05/12/2023 2:05 PM EDT) Hemoglobin 8.5(L) 11.7 - 15.5 g/dL [facility] Blood 05/12/2023 2:05 PM EDT 05/12/2023 2:14 PM EDT Narrative Resulting Agency Comment Spec In Lab Alirio Hudson MD HEMATOLOGY ORDERABL ES Performing Organization Address [facility] Co de Phone Number [facility] [place] [address] * Potassium (05/12/2023 2:05 PM EDT) Potassium 3.9 3.5 - 5.0 mmol/L [facility] Comment: Please note: ??Patients with [...] CHEMISTRY ORDERABLE S Performing Organization Address [facility] Co de Phone Number [facility] [place] [address] * (ABNORMAL) BLOOD GAS 2 ARTERIAL (05/12/2023 11:05 AM EDT) pH, Arterial 7.34(L) 7.35 - 7.45 [facility] PCO2, Arterial 42 35 - 45 mmHg [facility] PO2, Arterial 73(L) 85 - 104 mmHg [facility] Bicarbonate, Arterial 22.1 20.0 - 26.0 mmol/L [facility] Base Excess, Arterial -3.6(L) -3.0 - 3.0 mmol/L [facility] Hgb Blood Gas 9.3(L) 11.7 - 15.5 g/dL [facility] Oxyhemoglobin, Arterial 89.3(L) 94.0 - 97.0 % [facility] Carboxyhemoglob in, Arterial 0.2 % [facility] Comment: Nonsmokers: 0.5-1.5% COHB Smokers: Variable, but usually less than 10% Toxic: 20-30% COHB Lethal: Greater than 60% COHB Methemoglobin, Arterial 0.9 <=1.5 % [facility] Na Whole Blood 131(L) 135 - 145 mmol/L [facility] K Whole Blood 3.8 3.5 - 5.0 mmol/L [facility] Comment: Please note: Patients with WBC >100,000 may have falsely elevated Potassium levels. Contact the Clinical Chemistry Laboratory if there are any questions. ICa Whole Blood 1.04(L) 1.15 - 1.33 mmol/L [facility] Comment: Note: ??Total bilirubin higher than 20 mg/dL may lead to falsely low ionized calcium. CL Whole Blood 96(L) 98 - 107 mmol/L [facility] Gluc Whole Bld 152 65 - 199 mg/dL [facility] Comment:Diabetes: >=200 mg/d L plus symptoms. Lactate WB 2.8(H) 0.5 - 2.2 mmol/L [facility] FIO2 Art 40 % [facility] PF Ratio Art 182 [facility] Blood 05/12/2023 11:0 5 AM EDT 05/12/2023 11:05 AM EDT Alirio Hudson MD POINT OF CARE TEST ORDERABLES [facility] [place] [address] * (ABNORMAL) BLOOD GAS 2 ARTERIAL (05/12/2023 10:14 AM EDT) pH, Arterial 7.18(Criti gabrielle) 7.35 - 7.45 [facility] Comment:Noted by musical instrument mechanic. PCO2, Arterial 45 35 - 45 mmHg [facility] PO2, Arterial 186(H) 85 - 104 mmHg [facility] Bicarbonate, Arterial 16.2(L) 20.0 - 26.0 mmol/L [facility] Base Excess, Arterial -12.2(L) -3.0 - 3.0 mmol/L [facility] Hgb Blood Gas 10.0(L) 11.7 - 15.5 g/dL [facility] Oxyhemoglobin, Arterial 97.0 94.0 - 97.0 % [facility] Carboxyhemoglob in, Arterial 0.2 % [facility] Comment: Nonsmokers: 0.5-1.5% COHB Smokers: Variable, but usually less than 10% Toxic: 20-30% COHB Lethal: Greater than 60% COHB Methemoglobin, Arterial 0.9 <=1.5 % [facility] Na Whole Blood 129(L) 135 - 145 mmol/L [facility] K Whole Blood 3.6 3.5 - 5.0 mmol/L [facility] Comment: Please note: Patients with WBC >100,000 may have falsely elevated Potassium levels. Contact the Clinical Chemistry Laboratory if there are any questions. ICa Whole Blood 1.10(L) 1.15 - 1.33 mmol/L [facility] Comment: Note: ??Total bilirubin higher than 20 mg/dL may lead to falsely low ionized calcium. CL Whole Blood 97(L) 98 - 107 mmol/L [facility] Gluc Whole Bld 161 65 - 199 mg/dL [facility] Comment:Diabetes: >=200 mg/d L plus symptoms. Lactate WB 3.3(H) 0.5 - 2.2 mmol/L [facility] FIO2 Art 100 % [facility] PF Ratio Art 186 [facility] Blood 05/12/2023 10:1 4 AM EDT 05/12/2023 10:14 AM EDT Alirio Hudson MD POINT OF CARE TEST ORDERABLES [facility] [place] [address] * EKG 12 Lead (05/12/2023 10:10 AM EDT) Ventricular rate 116 BPM MUSE SYSTEM Atrial Rate 116 BPM MUSE SYSTEM P-R Interval 158 ms MUSE SYSTEM QRS Duration 114 ms MUSE SYSTEM Q-T Interval 348 ms MUSE SYSTEM QTC Calculated (Bezet) 483 ms MUSE SYSTEM Calculated P Interior 37 degrees MUSE SYSTEM Calculated R Interior 31 degrees MUSE SYSTEM Calculated T Interior -138 degrees MUSE SYSTEM INTERPRETATION Sinus tachycardia [...] interpretation Confirmed by fellow MD Anuja, Jim ([id number]) on 05/12/2023 1:04:20 PM Confirmed by MD Mono, Eleni ([id number]) on 05/12/2023 9:28:34 PM MUSE SYSTEM 05/12/2023 [...] who have questions please contact the health pet care associate that requested your imaging first. ? Electronically signed by: Chyna Johnson MD, [facility] ??([phone]), at 05/12/2023 10:08 AM Narrative 05/12/2023 10:08 AM EDT EXAMINATION: XR CHEST ONE VIEW CLINICAL HISTORY: Post TAVR TECHNIQUE: 1 view of the chest COMPARISON: Chest radiograph from earlier today FINDINGS: Interval placement of endotracheal tube with tip terminating 2 cm above the shira. Interval placement of enteric tube projecting along the expected course of the esophagus and outside the emtqt-aq-vywn. Interval retraction of right IJ approach pulmonary [...] expected course ofthe esophagus and outside the lohtx-lw-gmnz. Interval retraction of right IJ approach pulmonary [...] patients who have questions please contactthe health pet care associate that requested your imaging first. Alirio Hudson [...] 1955 ? Height: 154 cm ? Account: [id number] Age: 67 yrs ? Weight: 75 kg Gender: Female ?BSA: 1.7 m2 Ordering Physician: RADHA HOLLINS Referring Physician: RADHA HOLLINS Performed By: Dilma Bee RDCS Reason For Study: Guidance for TAVR procedure Exam Location: [facility]. Interpretation Summary PRE TAVR: [...] mL/m2. POST TAVR: Normal function of the fyfmy-zf-mxeix prosthesis. See below for hemodynamic parameters. Slight improvement in left and right ventricular systolic function. LVEF now 20-25%. No pericardial effusion. See report for additional findings. Procedure Limited - 75080. Doppler - 24245. Color Doppler - 73050. Left Ventricle Left ventricle is of normal [...] Date: 307:33 AMBP: 96/63 mmHg Patient Location: [address] : 1955 Height: 154 cm Account: [id number] Age: 67 yrs Weight: 75 kg Gender: Female BSA: 1.7 m2 Ordering Physician: RADHA HOLLINS Referring Physician: RADHA HOLLINS Performed By: Dilma Bee RDCS Reason For Study: Guidance for TAVR procedure Exam Location: [facility]. Interpretation Summary PRE TAVR: [...] 28mL/m2. POST TAVR: Normal function of the tavhu-zu-uycbq prosthesis. See belowfor hemodynamic parameters. Slight improvement in left and right ventricularsystolic function. LVEF now 20-25%. No pericardial effusion. See report for additional findings. Procedure Limited - 85093. Doppler - 18859. Color Doppler - 13385. Left Ventricle Left ventricle is of normal [...] Modality Other Narrative 05/12/2023 2:37 PM EDT ?[facility] ? Cardiac Catheterization/Intervention Report ? Patient Name: Kirstie, Purnima M. ? Procedure Date: 05/12/2023 ? A #: [id number] ? Primary Physician: Zachary, Antelmo N ? Case #: [id number] ? File Name: [id number] ? Catheterization Order Number: [id number] ? [facility] ? Final Report [place], [place] ? Patient Name: ? Purnima M. Kirstie ? ID#: ?[id number] ? : ?1955 ? Procedure Date: ? May 12, 2023 ? Case #: ? [id number] ? Room: ? 6 ? Case Physicians: ?Antelmo Sharma M.D. ?Start: ?08:03 ?Alirio Hudson M.D. ?Admission: ??05/08/2023 ?Lynda Mcgowan M.D. ? Discharge: ??05/22/2023 ?Fellow: ? Emad Adair Tejeda ? Referring Physician: ??Mario Alberto Chin M.D. ? Procedures: ?* Coronary Angiography ?* Left Heart Catheterization ?* Coronary Stent Insertion ?* Transcatheter Aortic Valve Replacement ?* Vascular Closure Device Deployment ?* Temporary Pacemaker Insertion In Entry Rep ?* Endotracheal Intubation By Non-Cath Physician ?* [...] was designated as ASA Class IV. The HA clinical ?frailty scale is 4: Vulnerable. ? [...] guide. ??A premounted 4.00 x 30 mm [place] Juniata (MINNA) was ? deployed with a maximum [...] calculated STS risk score was 30.1%. A nlcua-mm-xmeiy ?procedure was performed on the pre-existing bioprosthetic stented ?prosthesis. The priority of the qzclf-ji-qhnxl procedure was Elective. ?The procedure was performed [...] Lai 3 Ultra RESILIA 23 mm THV (s/x=[id number]) transcatheter ?valve was inserted using standard technique. [...] to nor was it given in the ?laboratory assistant. ?Recommended anti-platelet/anti-thrombotic regimen: ?Continue aspirin 81 mg [...] regimen. ? Comments: ?Successful right transfemoral TAVR Jdkxa-cb-Yzbgo with a 23 mm Lai 3 ?THV. [...] was present for the entire procedure. ?Dr. nAtelmo Sharma M.D. performed the coronary angiography, left heart ?catheterization, stent insertion-coronary, access site angiography, ?temporary pacemaker in laboratory assistant, intubation-non cath physician, vascular ?closure device, transthoracic echo ??and TAVR. Dr. Alirio Hudson M.D. ?performed the left heart catheterization, access site angiography, ?temporary pacemaker in laboratory assistant, vascular closure device, transthoracic ?echo , TAVR and CPR during cath. Dr. Lynda Mcgowan M.D. performed the ABG, ?anesthesia and intubation-non cath physician. ? Antelmo Sharma M.D. ? Electronically Signed by: Antelmo Sharma M.D. ? Report Finalized: 05/12/2023 ??14:31 ? Report Last Ammended: 07/01/2023 ??11:30 ? Procedure Note Antelmo Sharma MD - 07/01/2023 [facility] Cardiac Catheterization/Intervention Report Patient Name: KirstiePurnima Procedure Date: 05/12/2023 A #: [id number] Primary Physician: Antelmo Sharma Case #: [id number] File Name: [id number] Catheterization Order Number: [id number] [facility] FinalReport [place], [place] Patient Name: Purnima Thacker ID#:[id number] :1955 Procedure Date: May 12, 2023 Case #: [id number] Room: 6 Case Physicians: Antelmo Sharma M.D. Start: 08:03 Alirio Hudson M.D. Admission:05/08/2023 Lynda Mcgowan M.D. Discharge:05/22/2023 Fellow: Rebekah Tejeda M.D. Referring Physician: Mario Alberto Chin M.D. Procedures: * Coronary Angiography * Left Heart Catheterization * Coronary Stent Insertion * Transcatheter Aortic Valve Replacement * Vascular Closure Device Deployment * Temporary Pacemaker Insertion In Entry Rep * Endotracheal Intubation By Non-Cath Physician * [...] A premounted 4.00 x 30 mm [place] Juniata (MINNA) was deployed with a maximum inflation [...] calculated STS risk score was 30.1%. A kxqxl-wv-oefau procedure was performed on the pre-existing bioprosthetic stented prosthesis. The priority of the ewxqe-fj-dbhlq procedure wasElective. The procedure was performed under Moderate sedation performed byLynda Mcgowan M.D. (see anesthesia report for additional details). Alirio Hudson M.D. participated in the case (see Cardiac Surgery reportfor additional details). The TAVR sheath was a 14 Fr Corona eSheath Introducer and theaccess site was femoral. Rapid ventricular pacing was performed. An Corona Lai 3 Ultra RESILIA 23 mm THV (s/u=[id number])transcatheter valve was inserted using standard technique. The [...] prior to nor was it given inthe laboratory assistant. Recommended anti-platelet/anti-thrombotic regimen: Continue aspirin 81 mg [...] this regimen. Comments: Successful right transfemoral TAVR Zeqnl-nk-Zadci with a 23 mmSapien 3 THV. We [...] insertion-coronary, access site angiography, temporary pacemaker in laboratory assistant, intubation-non cath physician,vascular closure device, transthoracic echo and TAVR. Dr. Alirio Hudson M.D. performed the left heart catheterization, access site angiography, temporary pacemaker in laboratory assistant, vascular closure device,transthoracic echo , TAVR and [...] pH, POC 7.20(Crit ical) 7.35 - 7.45 [facility] Comment:Critical value OKYamel C Lab. pCO2, POC 42 35 - 45 mmHg [facility] pO2, POC 260(H) 85 - 104 mmHg [facility] Base Excess, POC -11.0(L) -3.0 - 3.0 mmol/L [facility] Bicarbonate, POC 16.7(L) 20.0 - 26.0 mmol/L [facility] Sodium, POC 129(L) 135 - 145 mmol/L [facility] POC Potassium 3.8 3.5 - 5.0 mmol/L [facility] Ionized Calcium, POC 1.12(L) 1.15 - 1.33 mmol/L [facility] POC Hematocrit 23.0(L) 34.0 - 45.0 % [facility] POC Calc Hgb 7.8(L) 11.2 - 15.7 g/dL [facility] Comment:The calculation of h emoglobin from hematocrit assumes a normal MCHC. POC Bgas Loc CC Lab [facility] Blood 05/12/2023 8:50 AM EDT 05/13/2023 12:00 PM EDT Alirio Hudson MD CHEMISTRY ORDERABLE S Performing Organization Address City/State/[facility] Co de Phone Number [facility] [place] [address] * (ABNORMAL) Point of Care Blood Gas Historical (05/12/2023 8:10 AM EDT) pH, POC 7.27(Crit ical) 7.35 - 7.45 [facility] Comment:Critical value OKYamel C Lab. pCO2, POC 37 35 - 45 mmHg [facility] pO2, POC 29(Critic al) 85 - 104 mmHg [facility] Comment:Critical value OK C C Lab. Base Excess, POC -10.0(L) -3.0 - 3.0 mmol/L [facility] Bicarbonate, POC 16.7(L) 20.0 - 26.0 mmol/L [facility] Sodium, POC 123(L) 135 - 145 mmol/L [facility] POC Potassium 4.0 3.5 - 5.0 mmol/L [facility] Ionized Calcium, POC 1.12(L) 1.15 - 1.33 mmol/L [facility] POC Hematocrit 27.0(L) 34.0 - 45.0 % [facility] POC Calc Hgb 9.2(L) 11.2 - 15.7 g/dL [facility] Comment:The calculation of h emoglobin from hematocrit assumes a normal MCHC. POC Bgas Loc CC Lab [facility] Blood 05/12/2023 8:10 AM EDT 05/13/2023 12:00 PM EDT Alirio Hudson MD CHEMISTRY ORDERABLE S Performing Organization Address City/[facility]/ZIP Co de Phone Number [facility] [place] [address] * (ABNORMAL) Lactate, whole blood, [place] to lab ([place] (05/12/2023 7:00 AM EDT) Lactate WB 2.4(H) 0.5 - 2.2 mmol/L [facility] Blood 05/12/2023 7:00 AM EDT 05/12/2023 7:09 AM EDT Narrative Resulting Agency Comment Spec In Lab Radha Hollins MD CHEMISTRY ORDERABL ES Performing Organization Address [facility] Co de Phone Number [facility] [place] [address] * (ABNORMAL) Comprehensive metabolic panel (non-fasting) (05/12/2023 6:00 AM EDT) Glucose 167 65 - 199 mg/dL [facility] Comment:Diabetes: >=200 mg/d L plus symptoms Blood Urea Nitrogen 67(H) 8 - 18 mg/dL [facility] Creatinine 2.01(H) 0.70 - 1.20 mg/dL [facility] Sodium 131(L) 135 - 145 mmol/L [facility] Potassium 4.3 3.5 - 5.0 mmol/L [facility] Comment: Please note: ??Patients with WBC >100,000 may have falsely elevated Potassium levels. ??For accurate Potassium quantification in these patients send serum separator tube (gold top) for subsequent determinations. ??Contact the Clinical Chemistry Laboratory if there are any questions. Chloride 97(L) 98 - 107 mmol/L [facility] Carbon Dioxide 14(L) 22 - 31 mmol/L [facility] Anion Gap 20(H) 5 - 15 mmol/L [facility] Calcium 8.6 8.5 - 10.5 mg/dL [facility] Protein, Total 6.3 6.1 - 8.0 g/dL [facility] Albumin 3.5 3.2 - 5.2 g/dL [facility] Aspartate Aminotransferase 1,435(H) 0 - 30 unit/L [facility] Alanine Aminotransferase 1,174(H) 0 - 30 unit/L [facility] Alkaline Phosphatase 100 35 - 105 unit/L [facility] Bilirubin, Total 0.9 0.2 - 1.3 mg/dL [facility] Est Glomerular Filtration Rate 27(L) >=60 mL/min/1. 73 m?? [facility] Comment: This patient's estimated GFR [...] Lab Radha Hollins MD CHEMISTRY ORDERABL ES [facility] [place] [address] * (ABNORMAL) Coox2 (05/12/2023 5:08 AM EDT) pO2, Coox 24 mmHg [facility] Hgb Blood Gas 10.4(L) 11.7 - 15.5 g/dL [facility] Oxyhemoglobin, Coox 30.7 % [facility] Carboxyhemoglo bin, Coox 0.3 % [facility] Comment: Nonsmokers: 0.5-1.5% COHB Smokers: Variable, but usually less than 10% Toxic: 20-30% COHB Lethal: Greater than 60% COHB Methemoglobin, Coox 0.8 <=1.5 % [facility] Source Coox Mixed Venous [facility] Blood 05/12/2023 5:08 AM EDT 05/12/2023 5:08 AM EDT Radha Hollins MD POINT OF CARE TEST ORDERABLES Performing Organization Address City/[facility] Co de Phone Number [facility] [place] [address] * (ABNORMAL) Coox2 (05/12/2023 3:21 AM EDT) pO2, Coox 25 mmHg [facility] Hgb Blood Gas 10.8(L) 11.7 - 15.5 g/dL [facility] Oxyhemoglobin, Coox 32.7 % [facility] Carboxyhemoglo bin, Coox 0.3 % [facility] Comment: Nonsmokers: 0.5-1.5% COHB Smokers: Variable, but usually less than 10% Toxic: 20-30% COHB Lethal: Greater than 60% COHB Methemoglobin, Coox 0.7 <=1.5 % [facility] Source Coox Mixed Venous [facility] Blood 05/12/2023 3:21 AM EDT 05/12/2023 3:21 AM EDT Radha Hollins MD POINT OF CARE TEST ORDERABLES Performing Organization Address City/[facility] Co de Phone Number [facility] [place] [address] * (ABNORMAL) BLOOD GAS 2 ARTERIAL (05/12/2023 3:18 AM EDT) pH, Arterial 7.34(L) 7.35 - 7.45 [facility] PCO2, Arterial 30(L) 35 - 45 mmHg [facility] PO2, Arterial 72(L) 85 - 104 mmHg [facility] Bicarbonate, Arterial 16.0(L) 20.0 - 26.0 mmol/L [facility] Base Excess, Arterial -9.8(L) -3.0 - 3.0 mmol/L [facility] Hgb Blood Gas 11.0(L) 11.7 - 15.5 g/dL [facility] Oxyhemoglobin, Arterial 89.8(L) 94.0 - 97.0 % [facility] Carboxyhemoglob in, Arterial 0.3 % [facility] Comment: Nonsmokers: 0.5-1.5% COHB Smokers: Variable, but usually less than 10% Toxic: 20-30% COHB Lethal: Greater than 60% COHB Methemoglobin, Arterial 0.7 <=1.5 % [facility] Na Whole Blood 131(L) 135 - 145 mmol/L [facility] K Whole Blood 4.2 3.5 - 5.0 mmol/L [facility] Comment: Please note: Patients with WBC >100,000 may have falsely elevated Potassium levels. Contact the Clinical Chemistry Laboratory if there are any questions. ICa Whole Blood 1.12(L) 1.15 - 1.33 mmol/L [facility] Comment: Note: ??Total bilirubin higher than 20 mg/dL may lead to falsely low ionized calcium. CL Whole Blood 100 98 - 107 mmol/L [facility] Gluc Whole Bld 160 65 - 199 mg/dL [facility] Comment:Diabetes: >=200 mg/d L plus symptoms. Lactate WB 2.7(H) 0.5 - 2.2 mmol/L [facility] Flow Art 5.0 LPM [facility] Blood 05/12/2023 3:18 AM EDT 05/12/2023 3:18 AM EDT Radha Hollins MD POINT OF CARE TEST ORDERABLES [facility] [place] [address] * (ABNORMAL) Coox2 (05/12/2023 1:14 AM EDT) pO2, Coox 28 mmHg [facility] Hgb Blood Gas 10.9(L) 11.7 - 15.5 g/dL [facility] Oxyhemoglobin, Coox 37.3 % [facility] Carboxyhemoglo bin, Coox 0.3 % [facility] Comment: Nonsmokers: 0.5-1.5% COHB Smokers: Variable, but usually less than 10% Toxic: 20-30% COHB Lethal: Greater than 60% COHB Methemoglobin, Coox 0.5 <=1.5 % [facility] Source Coox Mixed Venous [facility] Blood 05/12/2023 1:14 AM EDT 05/12/2023 1:14 AM EDT Radha Hollins MD POINT OF CARE TEST ORDERABLES [facility] [place] [address] * (ABNORMAL) BLOOD GAS 2 ARTERIAL (05/12/2023 1:06 AM EDT) pH, Arterial 7.34(L) 7.35 - 7.45 [facility] PCO2, Arterial 30(L) 35 - 45 mmHg [facility] PO2, Arterial 81(L) 85 - 104 mmHg [facility] Bicarbonate, Arterial 15.7(L) 20.0 - 26.0 mmol/L [facility] Base Excess, Arterial -10.1(L) -3.0 - 3.0 mmol/L [facility] Hgb Blood Gas 11.0(L) 11.7 - 15.5 g/dL [facility] Oxyhemoglobin, Arterial 92.3(L) 94.0 - 97.0 % [facility] Carboxyhemoglob in, Arterial 0.2 % [facility] Comment: Nonsmokers: 0.5-1.5% COHB Smokers: Variable, but usually less than 10% Toxic: 20-30% COHB Lethal: Greater than 60% COHB Methemoglobin, Arterial 0.6 <=1.5 % [facility] Na Whole Blood 131(L) 135 - 145 mmol/L [facility] K Whole Blood 4.2 3.5 - 5.0 mmol/L [facility] Comment: Please note: Patients with WBC >100,000 may have falsely elevated Potassium levels. Contact the Clinical Chemistry Laboratory if there are any questions. ICa Whole Blood 1.13(L) 1.15 - 1.33 mmol/L [facility] Comment: Note: ??Total bilirubin higher than 20 mg/dL may lead to falsely low ionized calcium. CL Whole Blood 99 98 - 107 mmol/L [facility] Gluc Whole Bld 132 65 - 199 mg/dL [facility] Comment:Diabetes: >=200 mg/d L plus symptoms. Lactate WB 2.7(H) 0.5 - 2.2 mmol/L [facility] Flow Art 5.0 LPM [facility] Blood 05/12/2023 1:06 AM EDT 05/12/2023 1:06 AM EDT Radha Hollins MD POINT OF CARE TEST ORDERABLES Performing Organization Address City/State/[facility] Co de Phone Number [facility] [place] [address] * (ABNORMAL) Differential, Automated (05/12/2023 1:05 AM EDT) Neutrophil % 83.3 % [facility] Neutrophil Absolute 7.49(H) 1.70 - 6.10 x10(3)/mc L [facility] Lymph % 7.1 % [facility] Lymphocytes Abs 0.6(L) 0.9 - 3.2 x10(3)/mc L [facility] Monocyte % 8.9 % [facility] Monocyte Abs 0.8 0.3 - 0.9 x10(3)/mc L [facility] Eos % 0.0 % [facility] Eosinophils Abs 0.0 0.0 - 0.4 x10(3)/mc L [facility] Basophil % 0.1 % [facility] Baso Absolute 0.0 0.0 - 0.1 x10(3)/mc L [facility] Immature Gran % 0.60 % [facility] Comment: Immature granulocytes(IG's)percentage and absolute count will include metamyelocytes, myelocytes, and promyelocytes. Blood smears from CBCs yielding IG's will be scanned manually for concordance. If this scan disagrees with the automated IG or if promyelocytes are noted, a manual differential will be performed. Immature Gran Absolute 0.05(H) 0.00 - 0.04 x10(3)/mc L [facility] Blood 05/12/2023 1:05 AM EDT 05/12/2023 1:15 AM EDT Narrative Resulting Agency Comment Spec In Lab Ginani Fletcher MD HEMATOLOGY ORDERABLE S [facility] [place] [address] * (ABNORMAL) Hemogram (05/12/2023 1:05 AM EDT) White Blood Cell 9.0 4.0 - 9.5 x10(3)/mc L [facility] Red Blood Cell 3.01(L) 4.00 - 5.21 x10(6)/ L [facility] Hemoglobin 9.8(L) 11.7 - 15.5 g/dL [facility] Hematocrit 28.7(L) 35.7 - 45.8 % [facility] Mean Cell Volume 95.3(H) 82.6 - 94.4 fL [facility] Mean Cell Hemoglobin 32.6(H) 27.1 - 32.0 pg [facility] Mean Cell Hemoglobin Concentration 34.1 31.7 - 35.0 g/dL [facility] Platelet 186 145 - 357 x10(3)/mc L [facility] RDW Standard Deviation 43.7 37.0 - 46.0 fL [facility] RDW coefficient of variation 12.7 11.5 - 14.1 % [facility] Mean Platelet Volume 10.3 7.6 - 12.9 fL [facility] NRBC% auto 0.0 % [facility] NRBC Absolute 0.000 0.000 - 0.000 x10(3)/mc L [facility] Blood 05/12/2023 1:05 AM EDT 05/12/2023 1:15 AM EDT Narrative Resulting Agency Comment Spec In Lab Gianni Fletcher MD HEMATOLOGY ORDERABLE S [facility] [place] [address] * (ABNORMAL) Comprehensive metabolic panel (non-fasting) (05/12/2023 1:05 AM EDT) Glucose 141 65 - 199 mg/dL [facility] Comment:Diabetes: >=200 mg/d L plus symptoms Blood Urea Nitrogen 63(H) 8 - 18 mg/dL [facility] Creatinine 1.86(H) 0.70 - 1.20 mg/dL [facility] Sodium 131(L) 135 - 145 mmol/L [facility] Potassium 4.4 3.5 - 5.0 mmol/L [facility] Comment: Please note: ??Patients with WBC >100,000 may have falsely elevated Potassium levels. ??For accurate Potassium quantification in these patients send serum separator tube (gold top) for subsequent determinations. ??Contact the Clinical Chemistry Laboratory if there are any questions. Chloride 96(L) 98 - 107 mmol/L [facility] Carbon Dioxide 14(L) 22 - 31 mmol/L [facility] Anion Gap 21(H) 5 - 15 mmol/L [facility] Calcium 9.0 8.5 - 10.5 mg/dL [facility] Protein, Total 6.6 6.1 - 8.0 g/dL [facility] Albumin 3.9 3.2 - 5.2 g/dL [facility] Aspartate Aminotransferase 1,227(H) 0 - 30 unit/L [facility] Alanine Aminotransferase 1,097(H) 0 - 30 unit/L [facility] Alkaline Phosphatase 108(H) 35 - 105 unit/L [facility] Bilirubin, Total 1.0 0.2 - 1.3 mg/dL [facility] Est Glomerular Filtration Rate 29(L) >=60 mL/min/1. 73 m?? [facility] Comment: This patient's estimated GFR [...] Lab Radha Hollins [place] [address] * XR Chest One View (05/12/2023 1:00 [...] who have questions please contact the health pet care associate that requested your imaging first. [...] patients who have questions please contactthe health pet care associate that requested your imaging first. Radha Hollins MD IMG DX ORDERABLES * (ABNORMAL) Coox2 (05/12/2023 12:30 AM EDT) pO2, Coox 22 mmHg [facility] Hgb Blood Gas 10.9(L) 11.7 - 15.5 g/dL [facility] Oxyhemoglobin, Coox 25.1 % [facility] Carboxyhemoglo bin, Coox 0.3 % [facility] Comment: Nonsmokers: 0.5-1.5% COHB Smokers: Variable, but usually less than 10% Toxic: 20-30% COHB Lethal: Greater than 60% COHB Methemoglobin, Coox 1.4 <=1.5 % [facility] Source Coox Mixed Venous [facility] Blood 05/12/2023 12:3 0 AM EDT 05/12/2023 12:30 AM EDT Radha Hollins MD POINT OF CARE TEST ORDERABLES [facility] [place] [address] * XR Chest One View (05/11/2023 11:45 [...] who have questions please contact the health pet care associate that requested your imaging first. [...] patients who have questions please contactthe health pet care associate that requested your imaging first. Radha Hollins MD IMG DX ORDERABLES * (ABNORMAL) Lactate, whole blood, [place] to lab ([place] (05/11/2023 7:40 PM EDT) Lactate WB 4.8(Critic al) 0.5 - 2.2 mmol/L [facility] Comment:Called by: IMM, Read back by: Magdalena Baires, Date/Time:05/11/23 19:54. Blood 05/11/2023 7:40 PM EDT 05/11/2023 7:49 PM EDT Narrative Resulting Agency Comment Spec In Lab Radha Hollins MD CHEMISTRY ORDERABL ES Performing Organization Address City/[facility]/ZIP Co de Phone Number [facility] [place] [address] * Urine culture (05/11/2023 7:22 PM EDT) Pathologist [facility] Urine Culture 50,000-99,000 cfu/ml Normal mucosal herman Susceptibilit y testing not routinely performed for Coagulase Negative Staphylococcu s species and other Gram Positive organisms from urine. [facility] Clean Catch Urine 05/11/2023 7:22 PM EDT 05/11/2023 8:50 PM EDT Narrative Resulting Agency Comment Spec In Lab Brody Kaplan APRN MICROBIOLOGY - GENE RAL ORDERABLES Performing Organization Address [facility]/ZIP Co de Phone Number [facility] [place] [address] * (ABNORMAL) Urinalysis Microscopic Exam (05/11/2023 7:22 PM EDT) RBC, Urine 2 0 - 4 /HPF [facility] WBC, Urine >100(H) 0 - 5 /HPF [facility] Bacteria, Urine Occasional (A) None /HPF [facility] Squamous Epithelial Cells Raw Data, Urine 5(H) <=4 /HPF [facility] Hyaline Casts, Urine 3(H) 0 - 2 /LPF [facility] Clean Catch Urine 05/11/2023 7:22 PM EDT 05/11/2023 7:31 PM EDT Narrative Resulting Agency Comment Spec In Lab Brody Kaplan GUIDANCE COUNSELOR URINE ORDERABLES [facility] [place] [address] * (ABNORMAL) Urinalysis with reflex Culture (05/11/2023 7:22 PM EDT) Glucose, Urine Dipstick Negative Negative mg/dL [facility] Protein, Urine Dipstick Trace(A) Negative mg/dL [facility] Bilirubin, Urine Dipstick Negative Negative mg/dL [facility] Comment: Clinical correlation required for positive Urine Bilirubin results as false positive may occur with some drugs and drug related products. If a false positive is suspected a serum total bilirubin should be considered if clinically indicated. Urobilinogen, Urine Dipstick Normal Normal mg/dL [facility] pH, Urn (dipstick) 5.0 5.0 - 8.0 [facility] Blood, Urine Dipstick Trace(A) Negative mg/dL [facility] Ketone, Urine Dipstick Negative Negative mg/dL [facility] Nitrite, Urine Dipstick Negative Negative [facility] Leukocytes, Urine Dipstick Moderate(A) Negative mcL [facility] Appearance, Urine Dipstick Cloudy(A) Clear [facility] Specific [place] Urine Automated >=1.030(A) 1.005 - 1.030 [facility] Color, Urine Dipstick Yellow Yellow [facility] Reflex to Culture Yes [facility] Clean Catch Urine 05/11/2023 7:22 PM EDT 05/11/2023 7:31 PM EDT Narrative Resulting Agency Comment Spec In Lab Brody Kaplan GUIDANCE COUNSELOR URINE ORDERABLES [facility] [place] [address] * (ABNORMAL) pro-Brain Natriuretic Peptide (05/11/2023 7:11 PM EDT) NT-proBNP >35,000(H) <=124 pg/mL [facility] Blood 05/11/2023 7:11 PM EDT 05/11/2023 7:26 PM EDT Narrative Resulting Agency Comment Spec In Lab Radha Hollins MD CHEMISTRY ORDERABL ES Performing Organization Address City/[facility]/ZIP Co de Phone Number [facility] [place] [address] * (ABNORMAL) Lactate, whole blood, send to lab ([place] (05/11/2023 2:47 PM EDT) Lactate WB 2.9(H) 0.5 - 2.2 mmol/L [facility] Blood 05/11/2023 2:47 PM EDT 05/11/2023 2:53 PM EDT Narrative Resulting Agency Comment Spec In Lab Juan Luis Gonzalez MD CHEMISTRY ORDERABLES Performing Organization Address [facility] Co de Phone Number [facility] [place] [address] * (ABNORMAL) CT Angiogram Abdomen & Pelvis [...] who have questions please contact the health pet care associate that requested your imaging first. [...] who have questions please contact the health pet care associate that requested your imaging first. ? Electronically signed by: Cullen Narayanan MD, [facility] ([phone]), at 05/11/2023 4:37 PM Narrative 05/11/2023 4:37 [...] 610 mm2 Circumference: 88 mm Calcification: Mild Prgbllk-pj-dkkblbbf height: Left: 6.2 mm Right: 5.8 mm THORACIC AORTA Description: Normal course and caliber. ??Mild diffuse atherosclerotic changes. No acute aortopathy noted. Insole Buffer dimensions: Aortic root: 27.6 mm Max ascending aorta: 30.5 mm x 27.7 mm Suggested fluoroscopic angulation based on line extending through the nadirs of the three sinuses of Valsalva, set equidistant: ?? EMIRATI ??9 degrees; cranial 7 degrees MITRAL: Mitral [...] 610 mm2 Circumference: 88 mm Calcification: Mild Xvdtinp-pd-lwqkgwnc height: Left: 6.2 mm Right: 5.8 mm THORACIC AORTA Description: Normal course and caliber. Mild diffuse atheroscleroticchanges. No acute aortopathy noted. Insole Buffer dimensions: Aortic root: 27.6 mm Max ascending aorta: 30.5 mm x 27.7 mm Suggested fluoroscopic angulation based on line extending through thenadirs of the three sinuses of Valsalva, set equidistant: EMIRATI 9 degrees; cranial 7 degrees MITRAL: Mitral [...] patients who have questions please contactthe health pet care associate that requested your imaging first. Electronically signed by: Cullen Narayanan MD, [facility]([phone]), at 05/11/2023 4:37 PM Antelmo Sharma MD IMG CT ORDERABLES * (ABNORMAL) Lactate, whole blood, send to lab ([place] (05/11/2023 9:29 AM EDT) [facility] Lactate WB 3.1(H) 0.5 - 2.2 mmol/L [facility] Blood 05/11/2023 9:29 AM EDT 05/11/2023 9:38 AM EDT Narrative Resulting Agency Comment Spec In Lab Juan Luis Gonzalez MD CHEMISTRY ORDERABLES [facility] [place] [address] * (ABNORMAL) Differential, Automated (05/11/2023 4:42 AM EDT) Pathologist [facility] Neutrophil % 78.1 % [facility] Neutrophil Absolute 5.46 1.70 - 6.10 x10(3)/mc L [facility] Lymph % 10.6 % [facility] Lymphocytes Abs 0.7(L) 0.9 - 3.2 x10(3)/mc L [facility] Monocyte % 9.6 % [facility] Monocyte Abs 0.7 0.3 - 0.9 x10(3)/mc L [facility] Eos % 0.0 % [facility] Eosinophils Abs 0.0 0.0 - 0.4 x10(3)/mc L [facility] Basophil % 0.4 % [facility] Baso Absolute 0.0 0.0 - 0.1 x10(3)/mc L [facility] Immature Gran % 1.30 % [facility] Comment: Immature granulocytes(IG's)percentage and absolute count will include metamyelocytes, myelocytes, and promyelocytes. Blood smears from CBCs yielding IG's will be scanned manually for concordance. If this scan disagrees with the automated IG or if promyelocytes are noted, a manual differential will be performed. Immature Gran Absolute 0.09(H) 0.00 - 0.04 x10(3)/ L [facility] Blood 05/11/2023 4:42 AM EDT 05/11/2023 4:49 AM EDT Narrative Resulting Agency Comment Spec In Lab Klaudia Reid MD HEMATOLOGY OR DERABLES Performing Organization Address City/State/[facility] Co de Phone Number [facility] [place] [address] * (ABNORMAL) Hemogram (05/11/2023 4:42 AM EDT) White Blood Cell 7.0 4.0 - 9.5 x10(3)/mc L [facility] Red Blood Cell 3.44(L) 4.00 - 5.21 x10(6)/mc L [facility] Hemoglobin 11.1(L) 11.7 - 15.5 g/dL [facility] Hematocrit 32.7(L) 35.7 - 45.8 % [facility] Mean Cell Volume 95.1(H) 82.6 - 94.4 fL [facility] Mean Cell Hemoglobin 32.3(H) 27.1 - 32.0 pg [facility] Mean Cell Hemoglobin Concentration 33.9 31.7 - 35.0 g/dL [facility] Platelet 165 145 - 357 x10(3)/mc L [facility] RDW Standard Deviation 43.1 37.0 - 46.0 fL [facility] RDW coefficient of variation 12.7 11.5 - 14.1 % [facility] Mean Platelet Volume 10.1 7.6 - 12.9 fL [facility] NRBC% auto 0.0 % [facility] NRBC Absolute 0.000 0.000 - 0.000 x10(3)/mc L [facility] Blood 05/11/2023 4:42 AM EDT 05/11/2023 4:49 AM EDT Narrative Resulting Agency Comment Spec In Lab Klaudia Reid MD HEMATOLOGY OR DERABLES Performing Organization Address [facility] Co de Phone Number [facility] [place] [address] * Heparin (unfractionated) Level (05/11/2023 4:42 AM EDT) UF Heparin 0.46 IU/mL [facility] Comment: Heparin (anti-Xa) levels should [...] HEMATOLOGY ORDERAB LES Performing Organization Address [facility] Co de Phone Number [facility] [place] [address] * (ABNORMAL) Comprehensive metabolic panel (non-fasting) (05/11/2023 4:42 AM EDT) Glucose 143 65 - 199 mg/dL [facility] Comment:Diabetes: >=200 mg/d L plus symptoms Blood Urea Nitrogen 42(H) 8 - 18 mg/dL [facility] Creatinine 1.24(H) 0.70 - 1.20 mg/dL [facility] Sodium 134(L) 135 - 145 mmol/L [facility] Potassium 4.6 3.5 - 5.0 mmol/L [facility] Comment: Please note: ??Patients with WBC >100,000 may have falsely elevated Potassium levels. ??For accurate Potassium quantification in these patients send serum separator tube (gold top) for subsequent determinations. ??Contact the Clinical Chemistry Laboratory if there are any questions. Chloride 99 98 - 107 mmol/L [facility] Carbon Dioxide 14(L) 22 - 31 mmol/L [facility] Anion Gap 21(H) 5 - 15 mmol/L [facility] Calcium 9.6 8.5 - 10.5 mg/dL [facility] Protein, Total 7.2 6.1 - 8.0 g/dL [facility] Albumin 3.7 3.2 - 5.2 g/dL [facility] Aspartate Aminotransferase 144(H) 0 - 30 unit/L [facility] Comment:result rechecked-ssc Alanine Aminotransferase 130(H) 0 - 30 unit/L [facility] Comment:result rechecked-ssc Alkaline Phosphatase 72 35 - 105 unit/L [facility] Bilirubin, Total 0.8 0.2 - 1.3 mg/dL [facility] Est Glomerular Filtration Rate 48(L) >=60 mL/min/1. 73 m?? [facility] Comment: This patient's estimated GFR [...] MD CHEMISTRY ORDERABL ES Performing Organization Address City/[facility]/ZIP Co de Phone Number [facility] [place] [address] * EKG 12 Lead (05/10/2023 1:16 PM EDT) Ventricular rate 118 BPM MUSE SYSTEM Atrial Rate 118 BPM MUSE SYSTEM P-R Interval 152 ms MUSE SYSTEM QRS Duration 104 ms MUSE SYSTEM Q-T Interval 316 ms MUSE SYSTEM QTC Calculated (Bezet) 442 ms MUSE SYSTEM Calculated P Interior 29 degrees MUSE SYSTEM Calculated R Interior 18 degrees MUSE SYSTEM Calculated T Interior -173 degrees MUSE SYSTEM INTERPRETATION Sinus tachycardia Minimal voltage criteria for LVH, may be normal variant ( Ripley product ) Septal infarct , age undetermined ST & T wave abnormality, consider lateral ischemia Abnormal ECG When compared with ECG of 10-MAY-2023 07:59, Fusion complexes are no longer Present Premature ventricular complexes are no longer Present ST no longer depressed in Anterior leads Confirmed by MD Villareal Danette ([id number]) on 05/10/2023 8:47:46 PM MUSE SYSTEM 05/10/2023 1:16 PM EDT 05/10/2023 8:47 PM EDT Juan Luis Gonzalez MD ECG ORDERABLES Performing Organization Address [facility] Co de Phone Number MUSE SYSTEM * Lactate, whole blood, send to lab ([place] (05/10/2023 11:52 AM EDT) Lactate WB 1.8 0.5 - 2.2 mmol/L [facility] Blood 05/10/2023 11:5 2 AM EDT 05/10/2023 12:13 PM EDT Narrative Resulting Agency Comment Spec In Lab Juan Luis Gonzalez MD CHEMISTRY ORDERABLES Performing Organization Address City/[facility]/ZIP Co de Phone Number [facility] [place] [address] * XR Chest One View (05/10/2023 11:16 [...] who have questions please contact the health pet care associate that requested your imaging first. [...] patients who have questions please contactthe health pet care associate that requested your imaging first. Juan Luis Gonzalez MD IMG DX ORDERABLES * EKG 12 Lead (05/10/2023 7:59 AM EDT) Pathologist [facility] Ventricular rate 115 BPM MUSE SYSTEM Atrial Rate 115 BPM MUSE SYSTEM P-R Interval 142 ms MUSE SYSTEM QRS Duration 102 ms MUSE SYSTEM Q-T Interval 322 ms MUSE SYSTEM QTC Calculated (Bezet) 445 ms MUSE SYSTEM Calculated P Interior 36 degrees MUSE SYSTEM Calculated R Interior 28 degrees MUSE SYSTEM Calculated T Interior -119 degrees MUSE SYSTEM INTERPRETATION Sinus tachycardia with frequent Premature ventricular complexes and Fusion complexes ST & T wave abnormality, consider lateral ischemia Abnormal ECG When compared with ECG of 08-MAY-2023 15:51, No significant change was found I personally reviewed the tracing and edited the fellows interpretation Confirmed by fellow MD Anith[facility], [facility] on 05/11/2023 6:19:54 AM Confirmed by MD Tram, Chel ([id number]) on 05/11/2023 3:18:56 PM MUSE SYSTEM 05/10/2023 7:59 AM EDT 05/11/2023 3:18 PM EDT Radha Hollins MD ECG ORDERABLES MUSE SYSTEM * (ABNORMAL) Differential, Automated (05/10/2023 2:28 AM EDT) Neutrophil % 77.1 % [facility] Neutrophil Absolute 4.01 1.70 - 6.10 x10(3)/mc L [facility] Lymph % 14.0 % [facility] Lymphocytes Abs 0.7(L) 0.9 - 3.2 x10(3)/ L [facility] Monocyte % 7.7 % [facility] Monocyte Abs 0.4 0.3 - 0.9 x10(3)/[facility] Eos % 0.4 % [facility] Eosinophils Abs 0.0 0.0 - 0.4 x10(3)/[facility] Basophil % 0.4 % [facility] Baso Absolute 0.0 0.0 - 0.1 x10(3)/[facility] Immature Gran % 0.40 % [facility] Comment: Immature granulocytes(IG's)percentage and absolute count will include metamyelocytes, myelocytes, and promyelocytes. Blood smears from CBCs yielding IG's will be scanned manually for concordance. If this scan disagrees with the automated IG or if promyelocytes are noted, a manual differential will be performed. Immature Gran Absolute 0.02 0.00 - 0.04 x10(3)/[facility] Blood 05/10/2023 2:28 AM EDT 05/10/2023 2:57 AM EDT Narrative Resulting Agency Comment Spec In Lab Klaudia Reid MD HEMATOLOGY OR DERABLES Performing Organization Address City/State/[facility] Co de Phone Number [facility] [place] [address] * (ABNORMAL) Hemogram (05/10/2023 2:28 AM EDT) White Blood Cell 5.2 4.0 - 9.5 x10(3)/[facility] Red Blood Cell 3.11(L) 4.00 - 5.21 x10(6)/[facility] Hemoglobin 10.2(L) 11.7 - 15.5 g/dL [facility] Hematocrit 30.2(L) 35.7 - 45.8 % [facility] Mean Cell Volume 97.1(H) 82.6 - 94.4 fL [facility] Mean Cell Hemoglobin 32.8(H) 27.1 - 32.0 pg [facility] Mean Cell Hemoglobin Concentration 33.8 31.7 - 35.0 g/dL [facility] Platelet 151 145 - 357 x10(3)/mc L [facility] RDW Standard Deviation 44.9 37.0 - 46.0 fL [facility] RDW coefficient of variation 12.8 11.5 - 14.1 % [facility] Mean Platelet Volume 9.8 7.6 - 12.9 fL [facility] NRBC% auto 0.0 % [facility] NRBC Absolute 0.000 0.000 - 0.000 x10(3)/mc L [facility] Blood 05/10/2023 2:28 AM EDT 05/10/2023 2:57 AM EDT Narrative Resulting Agency Comment Spec In Lab Klaudia Reid MD HEMATOLOGY OR DERABLES [facility] [place] [address] * (ABNORMAL) Comprehensive metabolic panel (non-fasting) (05/10/2023 2:28 AM EDT) Pathologist [facility] Glucose 100 65 - 199 mg/dL [facility] Comment:Diabetes: >=200 mg/d L plus symptoms Blood Urea Nitrogen 30(H) 8 - 18 mg/dL [facility] Creatinine 0.90 0.70 - 1.20 mg/dL [facility] Sodium 134(L) 135 - 145 mmol/L [facility] Potassium 4.1 3.5 - 5.0 mmol/L [facility] Comment: Please note: ??Patients with WBC >100,000 may have falsely elevated Potassium levels. ??For accurate Potassium quantification in these patients send serum separator tube (gold top) for subsequent determinations. ??Contact the Clinical Chemistry Laboratory if there are any questions. Chloride 102 98 - 107 mmol/L [facility] Carbon Dioxide 20(L) 22 - 31 mmol/L [facility] Anion Gap 12 5 - 15 mmol/L [facility] Calcium 9.3 8.5 - 10.5 mg/dL [facility] Protein, Total 6.4 6.1 - 8.0 g/dL [facility] Albumin 3.7 3.2 - 5.2 g/dL [facility] Aspartate Aminotransferase 24 0 - 30 unit/L [facility] Alanine Aminotransferase 14 0 - 30 unit/L [facility] Alkaline Phosphatase 70 35 - 105 unit/L [facility] Bilirubin, Total 0.5 0.2 - 1.3 mg/dL [facility] Est Glomerular Filtration Rate 70 >=60 mL/min/1. 73 m?? [facility] Comment: This patient's estimated [...] Lab Radha Hollins MD CHEMISTRY ORDERABL ES [facility] [place] [address] * Heparin (unfractionated) Level (05/10/2023 2:28 AM EDT) UF Heparin 0.37 IU/mL [facility] Comment: Heparin (anti-Xa) [...] Lab Radha Hollins MD [place] [address] * (ABNORMAL) Differential, Automated (05/09/2023 4:00 AM EDT) Neutrophil % 81.7 % [facility] Neutrophil Absolute 5.26 1.70 - 6.10 x10(3)/mc L [facility] Lymph % 10.7 % [facility] Lymphocytes Abs 0.7(L) 0.9 - 3.2 x10(3)/mc L [facility] Monocyte % 6.5 % [facility] Monocyte Abs 0.4 0.3 - 0.9 x10(3)/mc L [facility] Eos % 0.5 % [facility] Eosinophils Abs 0.0 0.0 - 0.4 x10(3)/mc L [facility] Basophil % 0.3 % [facility] Baso Absolute 0.0 0.0 - 0.1 x10(3)/mc L [facility] Immature Gran % 0.30 % [facility] Comment: Immature granulocytes(IG's)percentage and absolute count will include metamyelocytes, myelocytes, and promyelocytes. Blood smears from CBCs yielding IG's will be scanned manually for concordance. If this scan disagrees with the automated IG or if promyelocytes are noted, a manual differential will be performed. Immature Gran Absolute 0.02 0.00 - 0.04 x10(3)/mc L [facility] Blood 05/09/2023 4:00 AM EDT 05/09/2023 4:19 AM EDT Narrative Resulting Agency Comment Spec In Lab Klaudia Reid MD HEMATOLOGY OR DERABLES Performing Organization Address City/[facility]/[place] [address] * (ABNORMAL) Hemogram (05/09/2023 4:00 AM EDT) White Blood Cell 6.4 4.0 - 9.5 x10(3)/mc L [facility] Red Blood Cell 3.15(L) 4.00 - 5.21 x10(6)/mc L [facility] Hemoglobin 10.2(L) 11.7 - 15.5 g/dL [facility] Hematocrit 30.3(L) 35.7 - 45.8 % [facility] Mean Cell Volume 96.2(H) 82.6 - 94.4 fL [facility] Mean Cell Hemoglobin 32.4(H) 27.1 - 32.0 pg [facility] Mean Cell Hemoglobin Concentration 33.7 31.7 - 35.0 g/dL [facility] Platelet 151 145 - 357 x10(3)/mc L [facility] RDW Standard Deviation 44.7 37.0 - 46.0 fL [facility] RDW coefficient of variation 12.8 11.5 - 14.1 % [facility] Mean Platelet Volume 9.4 7.6 - 12.9 fL [facility] NRBC% auto 0.0 % [facility] NRBC Absolute 0.000 0.000 - 0.000 x10(3)/ L [facility] Blood 05/09/2023 4:00 AM EDT 05/09/2023 4:19 AM EDT Narrative Resulting Agency Comment Spec In Lab Klaudia Reid MD HEMATOLOGY OR DERABLES Performing Organization Address City/State/[facility] Co de Phone Number [facility] [place] [address] * Heparin (unfractionated) Level (05/09/2023 4:00 AM EDT) UF Heparin 0.47 IU/mL [facility] Comment: Heparin (anti-Xa) [...] Lab Radha Hollins MD HEMATOLOGY ORDERAB LES [facility] [address] [place] [address] * (ABNORMAL) Comprehensive metabolic panel (non-fasting) (05/09/2023 4:00 AM EDT) Glucose 108 65 - 199 mg/dL [facility] Comment:Diabetes: >=200 mg/d L plus symptoms Blood Urea Nitrogen 31(H) 8 - 18 mg/dL [facility] Creatinine 1.03 0.70 - 1.20 mg/dL [facility] Sodium 137 135 - 145 mmol/L [facility] Potassium 4.4 3.5 - 5.0 mmol/L [facility] Comment: Please note: ??Patients with WBC >100,000 may have falsely elevated Potassium levels. ??For accurate Potassium quantification in these patients send serum separator tube (gold top) for subsequent determinations. ??Contact the Clinical Chemistry Laboratory if there are any questions. Chloride 102 98 - 107 mmol/L [facility] [facility] Carbon Dioxide 20(L) 22 - 31 mmol/L [facility] Anion Gap 15 5 - 15 mmol/L [facility] Calcium 9.3 8.5 - 10.5 mg/dL [facility] Protein, Total 6.6 6.1 - 8.0 g/dL [facility] Albumin 3.8 3.2 - 5.2 g/dL [facility] Aspartate Aminotransferase 32(H) 0 - 30 unit/L [facility] Alanine Aminotransferase 18 0 - 30 unit/L [facility] Alkaline Phosphatase 78 35 - 105 unit/L [facility] Bilirubin, Total 0.5 0.2 - 1.3 mg/dL [facility] Est Glomerular Filtration Rate 60 >=60 mL/min/1. 73 m?? [facility] Comment: This patient's estimated GFR [...] CHEMISTRY ORDERABL ES Performing Organization Address [facility] Co de Phone Number [facility] [place] [address] * (ABNORMAL) pro-Brain Natriuretic Peptide (05/08/2023 4:00 PM EDT) NT-proBNP 25,503(H) <=124 pg/mL [facility] Blood Venous Draw / Unknown 05/08/2023 4:00 PM EDT 05/08/2023 4:25 PM EDT Narrative Resulting Agency Comment Spec In Lab Juan Luis Gonzalez MD CHEMISTRY ORDERABLES Performing Organization Address [facility] Co de Phone Number [facility] [place] [address] * Magnesium (05/08/2023 4:00 PM EDT) Magnesium 0.82 0.69 - 1.07 mmol/L [facility] Blood 05/08/2023 4:00 PM EDT 05/08/2023 4:06 PM EDT Narrative Resulting Agency Comment Spec In Lab Enrique Chua MD CHEMISTRY ORDERABLES Performing Organization Address [facility] Co de Phone Number [facility] [place] [address] * Potassium (05/08/2023 4:00 PM EDT) Potassium 3.9 3.5 - 5.0 mmol/L [facility] Comment: Please note: ??Patients [...] MD CHEMISTRY ORDERABL ES Performing Organization Address [facility] [place] [address] * Heparin (unfractionated) Level (05/08/2023 4:00 PM EDT) UF Heparin 0.43 IU/mL [facility] Comment: Heparin (anti-Xa) [...] MD HEMATOLOGY ORDERAB LES Performing Organization Address [facility] Co de Phone Number [facility] [place] [address] * EKG 12 Lead (05/08/2023 3:51 PM EDT) Ventricular rate 98 BPM MUSE SYSTEM Atrial Rate 98 BPM MUSE SYSTEM P-R Interval 150 ms MUSE SYSTEM QRS Duration 102 ms MUSE SYSTEM Q-T Interval 358 ms MUSE SYSTEM QTC Calculated (Bezet) 457 ms MUSE SYSTEM Calculated P Interior 38 degrees MUSE SYSTEM Calculated R Interior 48 degrees MUSE SYSTEM Calculated T Interior -112 degrees MUSE SYSTEM INTERPRETATION Sinus rhythm with frequent and consecutive Premature ventricular and fusion complexes Septal infarct , age undetermined ST & T wave abnormality, consider anterolateral ischemia Abnormal ECG When compared with ECG of 09-NOV-2022 11:17, T wave inversion now evident in Anterolateral leads Confirmed by MD Harshil, Enrique Bell ([id number]) on 05/10/2023 8:11:46 AM MUSE SYSTEM 05/08/2023 3:51 PM EDT 05/10/2023 8:11 AM EDT Radha Hollins MD ECG ORDERABLES MUSE SYSTEM * (ABNORMAL) Differential, Automated (05/08/2023 11:38 AM EDT) Pathologist [facility] Neutrophil % 71.3 % [facility] Neutrophil Absolute 2.91 1.70 - 6.10 x10(3)/mc L [facility] Lymph % 19.1 % [facility] Lymphocytes Abs 0.8(L) 0.9 - 3.2 x10(3)/mc L [facility] Monocyte % 9.0 % [facility] Monocyte Abs 0.4 0.3 - 0.9 x10(3)/mc L [facility] Eos % 0.2 % [facility] Eosinophils Abs 0.0 0.0 - 0.4 x10(3)/mc L [facility] Basophil % 0.2 % [facility] Baso Absolute 0.0 0.0 - 0.1 x10(3)/mc L [facility] Immature Gran % 0.20 % [facility] Comment: Immature granulocytes(IG's)percentage and absolute count will include metamyelocytes, myelocytes, and promyelocytes. Blood smears from CBCs yielding IG's will be scanned manually for concordance. If this scan disagrees with the automated IG or if promyelocytes are noted, a manual differential will be performed. Immature Gran Absolute 0.01 0.00 - 0.04 x10(3)/mc L [facility] Blood 05/08/2023 11:3 8 AM EDT 05/08/2023 11:44 AM EDT Narrative Resulting Agency Comment Spec In Lab Lincoln Sal MD HEMATOLOGY ORDERA BLES [facility] [place] [address] * (ABNORMAL) Hemogram (05/08/2023 11:38 AM EDT) White Blood Cell 4.1 4.0 - 9.5 x10(3)/ L [facility] Red Blood Cell 3.05(L) 4.00 - 5.21 x10(6)/ L [facility] Hemoglobin 10.2(L) 11.7 - 15.5 g/dL [facility] Hematocrit 29.6(L) 35.7 - 45.8 % [facility] Mean Cell Volume 97.0(H) 82.6 - 94.4 fL [facility] Mean Cell Hemoglobin 33.4(H) 27.1 - 32.0 pg [facility] Mean Cell Hemoglobin Concentration 34.5 31.7 - 35.0 g/dL [facility] Platelet 136(L) 145 - 357 x10(3)/mc L [facility] RDW Standard Deviation 44.3 37.0 - 46.0 fL [facility] RDW coefficient of variation 12.6 11.5 - 14.1 % [facility] Mean Platelet Volume 9.4 7.6 - 12.9 fL [facility] NRBC% auto 0.0 % [facility] NRBC Absolute 0.000 0.000 - 0.000 x10(3)/ L [facility] Blood 05/08/2023 11:3 8 AM EDT 05/08/2023 11:44 AM EDT Narrative Resulting Agency Comment Spec In Lab Lincoln Sal MD HEMATOLOGY ORDERA BLES Performing Organization Address [facility] Co de Phone Number [facility] [place] [address] * TSH (05/08/2023 11:38 AM EDT) Thyroid Stimulating Hormone 1.27 0.27 - 4.20 mcIU/mL [facility] Comment: Reference Interval (mcIU/mL): Females: ??First Trimester: 0.23-3.88 ??Second Trimester: 0.22-3.90 ??Third Trimester: 0.44-4.66 Blood 05/08/2023 11:3 8 AM EDT 05/08/2023 11:44 AM EDT Narrative Resulting Agency Comment Spec In Lab Enrique Chua MD CHEMISTRY ORDERABLES Performing Organization Address [facility] Co de Phone Number [facility] [place] [address] * (ABNORMAL) Phosphorus (05/08/2023 11:38 AM EDT) Phosphorus 4.7(H) 2.5 - 4.5 mg/dL [facility] Blood 05/08/2023 11:3 8 AM EDT 05/08/2023 11:44 AM EDT Narrative Resulting Agency Comment Spec In Lab Enrique Chua MD CHEMISTRY ORDERABLES Performing Organization Address [facility] Co de Phone Number [facility] [place] [address] * Magnesium (05/08/2023 11:38 AM EDT) Magnesium 0.76 0.69 - 1.07 mmol/L [facility] Blood 05/08/2023 11:3 8 AM EDT 05/08/2023 11:44 AM EDT Narrative Resulting Agency Comment Spec In Lab Enrique Chua MD CHEMISTRY ORDERABLES Performing Organization Address [facility] Co de Phone Number [facility] [place] [address] * (ABNORMAL) Basic Metabolic Panel (non-fasting) (05/08/2023 11:38 AM EDT) Glucose 97 65 - 199 mg/dL [facility] Comment:Diabetes: >=200 mg/d L plus symptoms Blood Urea Nitrogen 27(H) 8 - 18 mg/dL [facility] Creatinine 1.02 0.70 - 1.20 mg/dL [facility] Sodium 139 135 - 145 mmol/L [facility] Potassium 4.2 3.5 - 5.0 mmol/L [facility] Comment: Please note: ??Patients with WBC >100,000 may have falsely elevated Potassium levels. ??For accurate Potassium quantification in these patients send serum separator tube (gold top) for subsequent determinations. ??Contact the Clinical Chemistry Laboratory if there are any questions. Chloride 105 98 - 107 mmol/L [facility] Carbon Dioxide 20(L) 22 - 31 mmol/L [facility] Anion Gap 14 5 - 15 mmol/L [facility] Calcium 9.4 8.5 - 10.5 mg/dL [facility] Est Glomerular Filtration Rate 60 >=60 mL/min/1. 73 m?? [facility] Comment: This patient's estimated GFR [...] MD CHEMISTRY ORDERABLES Performing Organization Address [facility]/ZIP Co de Phone Number [facility] [place] [address] * ECHO COMPLETE (05/08/2023 11:02 AM EDT) EF 25 HEARTLAB SYSTEM Anatomical Region Laterality Modality Cardiac Other 05/08/2023 10:0 3 AM EDT Narrative 05/08/2023 11:51 AM EDT ? Echocardiogram Report Name: PURNIMA THACKER ?Study Date: 05/08/2023 10:03 AMBP: 92/64 mmHg ? Patient Location: [facility]^CV29^A : 1955 ? Height: 155 cm ? Account: [id number] Age: 67 yrs ? Weight: 78 kg Gender: Female ?BSA: 1.8 m2 Ordering Physician: ENRIQUE CHUA Referring Physician: MARIO ALBERTO CHIN Performed By: CHUCKIE Canchola Reason For Study: SAVR Stenosis Exam Location: [facility]. Interpretation Summary -Left ventricle [...] worsening stenosis. Mitral regurgitation is similar. Procedure Complete-10013. Satisfactory quality. There is normal sinus rhythm. [...] 6-14 ?large Aneurysmal ?15-16 ?? diffuse Procedure Enrique Augustine MD - 05/08/2023 Echocardiogram Report Name: PURNIMA THACKER Study Date: 0:03 AMBP: 92/64 mmHg Patient Location:[facility]^CV29^A : 1955 Height: 155 cm Account: [id number] Age: 67 yrs Weight: 78 kg Gender: Female BSA: 1.8 m2 Ordering Physician: ENRIQUE CHUA Referring Physician: MARIO ALBERTO CHIN Performed By: CHUCKIE Canchola Reason For Study: SAVR Stenosis Exam Location: [facility]. Interpretation Summary -Left ventricle [...] suggestsworsening stenosis. Mitral regurgitation is similar. Procedure Complete-09386. Satisfactory quality. There is normal sinus rhythm. [...] 9:45 AM EDT) UF Heparin 0.54 IU/mL [facility] Comment: Heparin (anti-Xa) [...] Lab Enrique Chua MD HEMATOLOGY ORDERABLE S [facility] [place] [address] documented in this encounter Visit Diagnoses Diagnosis S/P TAVR (transcatheter aortic valve replacement)- Primary Aortic valve stenosis, etiology of cardiac valve disease unspecified Heart failure with reduced ejection fraction due to heart valve disease Mild coronary artery disease by [facility] 11/09/2022 Mixed connective tissue disease [...] ejection fraction Mild coronary artery disease by [facility] 11/09/2022 Stenosis of prosthetic aortic [...] 1758 (New Bag - Provider: Gabino Calhoun RN)1957 (Stopped - Provider: Favian Mckeon, VALDO) magnesium sulfate 2 g in sterile water 50 mL infusion (COMPLETED) 2 g, Intravenous, ONCE, 1 dose, On Wed05/22/23 at 0630, Administer over 120 Minutes 0615 (New Bag - Provider: Favian Mckeon RN)0815 (Stopped - Provider: Kia Gallego, VALDO) [...] Mckeon RN) 832 (Given - Provider: Kia Gallego RN)2012 (Given - Provider: Favian Mckeon RN) 08 (Given - Provider: iKa Gallego RN) sodium chloride 0.9 % (flush) [...] Kia Gallego RN)2012 (Given - Provider: Favian Mckeon, RN) [...] Routine 175 (Given - Provider: Gabino Calhoun, RN)2344 (Given [...] Routine documented in this encounter Care Teams Studio Potter Relationship Specialty Start Date End Date Magdalena Acosta MD [address] [place] [address] PCP - General Family Medicine 02/05/23 documented as of this encounter
--- OUTSIDE RECORDS SUMMARY | 2024-04-18 14:36 | XMS_ITS | Encounter Summary ---
[place] [address] Care Team Providers Care Operating Room Surgical Technician Name Role Phone Magdalena Acosta MD Primary Care Provider [phone] Reason for Visit * Auth/Cert (Routine) Specialty Diagnoses / Procedures Referred By Contac t Referred To Contact Diagnoses Symptomatic severe aortic stenosis with low ejection fraction NSTEMI, CHF Haris Chua MD [facility] [place] [address] [facility] Referral ID Status Reason Start Date Expiration Date Visits Re quested Visits Authorized [id number] 1 1 Encounter Details Date Type Department Care Team (Late st Contact Info) Description 05/12/2023 7:35 AM EDT Anesthesia Event [place] [address] Lynda Mcgowan MD [facility] [place] [address] Alie Park MD [facility] [place] [address] Anesthesia Record Procedure Summary Procedure Name Responsible [...] cephalic vein (lateral side of arm), left; [id number] catheter system; Anatomical Landmarks; US Not Used; [...] RN LDA Cath/EP Sheath 05/12/23; 0733; 14 Czech (Fr); Right; Femoral; Arterial 05/12/23 0733 by Guerda Bender, RN 05/12/23 0830 by Guerda Bender RN LDA Cath/EP Sheath 05/12/23; 0734; 6 Czech (Fr); Right; Femoral; Venous 05/12/23 0734 by Guerda Bender RN 05/12/23 0817 by Guerda Bender RN LDA Cath/EP Sheath 05/12/23; 0734; 7 Czech (Fr); Left; Femoral; Arterial 05/12/23 0734 by Guerda Bender, RN 05/12/23 0837 by Guerda Bender RN LDA Cath/EP Sheath 05/12/23; 0734; 6 Czech (Fr); Left; Femoral; Venous 05/12/23 0734 by [...] Procedure Summary Date: 05/12/23 Room / Location: [facility] Anesthesia Start: 734 Anesthesia [...] All Anesthesia Providers: Anesthesiologist: Lynda Mcgowan MD Gum Maker: Nico Graham MD Vitals Value Taken Time [...] 05/08/2023 ??? Mild coronary artery disease by [facility] 11/09/2022 05/08/2023 ??? Heart failure with [...] N/A 11/09/2022 CORONARY ANGIOGRAPHY; W [facility],POSSIBLE PCI (WRVU 5.6) performed by Nitesh Escobedo MD at [facility] CATH [facility] ??? PRO AORTOPLAS FOR SUPRAVALV STEN N/A 09/21/2016 @AORTOPLASTY FOR SUPRAVALVULAR STENOSIS (WRVU 29.33) performed by Alirio Esparza MD at [facility] MAIN OR ??? PRO REPLACEMENT PROSTHETIC AORTIC VALVE OPEN W CARDIOPULMONARY BYPASS HOMOGRF/STENT N/A 09/21/2016 @REPLACE AORTIC VALVE, OPEN, W\CPB, W\PROSTHETIC VALVE (WRVU 41.32) performed by Alirio Esparza MD at [facility] MAIN OR Social History Tobacco Use [...] 3 general, with a(n) intravenous induction Add-on [id number] TAVR. In cardiogenic shock. Has arterial line, [...] AM EDT Appointment Hematology [place] [address] 05/12/2024 10:00 AM EDT Office Visit Hematology [place] [phone] Markel Borjas MD [facility] [address] HEMATOLOGY [place] [address] 03/01/2025 4:15 PM EDT Office Visit Dermatology at [place] [address] [place] [address] Marek Bonilla MD [address], [place] [address] documented as of this encounter Visit Diagnoses [...] mL/hr documented in this encounter Care Teams Operating Room Surgical Technician Relationship Specialty Start Date End Date Magdalena Acosta MD [address] [place] [address] PCP - General Family Medicine 02/05/23 documented as of this encounter
--- OUTSIDE RECORDS SUMMARY | 2024-04-18 14:37 | XMS_ITS | Encounter Summary ---
[place] [address] Care Team Providers Care Civil Engineer'S Aide Name Role Phone Magdalena Acosta MD Primary Care Provider [phone] Reason for Visit * Reason Comments Annual Exam Encounter Details Date Type Department Care Team (Late st Contact Info) Description 02/05/2023 2:30 PM EDT Office Visit Dermatology at [address] [address] Marek Bonilla MD [address] [facility] [place] [address] Rosacea; Ocular rosacea; Nevus Social History Tobacco [...] cutaneous and ocular 2. Previously told by painting trades worker that she had corneal tears from her [...] AM EDT Appointment Hematology [place] [address] 05/12/2024 10:00 AM EDT Office Visit Hematology [place] [address] Markel Borjas MD [facility] [address] HEMATOLOGY [place] [address] 03/01/2025 4:15 PM EDT Office Visit Dermatology at [place] [address] [place] [address] Marek Bonilla MD [address] [facility], [place] [address] documented as of this encounter Visit Diagnoses Diagnosis Rosacea Ocular rosacea Rosacea Nevus Benign neoplasm of skin, site unspecified documented in this encounter Care Teams Civil Engineer'S Aide Relationship Specialty Start Date End Date Magdalena Acosta MD [address] [place] [address] PCP - General Family Medicine 02/05/23 documented as of this encounter
--- OUTSIDE RECORDS SUMMARY | 2024-04-18 14:37 | XMS_ITS | Encounter Summary ---
Author Organization [facility] Address [facility] [place] [address] Care Team Providers Care Youth Care Professional Name Role Phone Ashley Quirogazac Shields APRN Primary Care Provider [phone] Reason for Referral * Consultation (Routine) - Closed Specialty Diagnoses / Procedures Referred By Contac t Referred To Contact Neurology Diagnoses Neck pain Popeye Rogers MD [facility] [place] [address] Kyra Haas MD [facility] [address] [address] Referral ID Status Reason Start Date Expiration Date V isits Requested Visits Authorized [id number] Closed Consult, Test & Treat 06/29/2022 06/29/2023 1 1 Reason for Visit * Reason Comments Neck Pain Weak in both arms, p ain and tingling in arms and hands Encounter Details Date Type Department Care Team (Late st Contact Info) Description 06/29/2022 10:20 AM EST Office Visit [facility] [place] [address] Popeye Rogers MD [facility] [place] [address] Neck pain Social History Tobacco Use Types [...] have EMG and nerve conduction studies in [place] that showed carpal tunnel syndrome. I do not have a copy of that report. documented in this encounter Plan of Treatment Upcoming Encounters Date Type Department Care Team (Late st Contact Info) Description 05/12/2024 9:00 AM EDT Appointment Hematology [place] [address] 05/12/2024 10:00 AM EDT Office Visit Hematology [place] [address] Markel Borjas MD [facility] [address] [place] [address] 03/01/2025 4:15 PM EDT Office Visit Dermatology at [address] [place] [address] Marek Bonilla MD [address] [place] [address], [place] [address] Scheduled Referrals Name Type Priority Associated Diagnoses Orde r Schedule Referral to Neurology Outpatient Referral Routine Neck pain Ordered: 06/29/2022 documented as of this encounter Visit Diagnoses Diagnosis Neck pain Cervicalgia documented in this encounter Care Teams Youth Care Professional Relationship Specialty Start Date End Date Deborah Quiroga APRN PCP - General Family Medicine 03/24/16 02/04/23 documented as of this encounter
--- OUTSIDE RECORDS SUMMARY | 2024-04-18 14:37 | XMS_ITS | Encounter Summary ---
Author Organization [facility] Address [facility] [place] [address] Care Team Providers Care International Bank Manager Name Role Phone Deborah Quiroga APRN Primary Care Provider [phone] Reason for Visit * Reason Comments Follow-up Encounter Details Date Type Department Care Team (Late st Contact Info) Description 07/03/2022 1:30 PM EST Office Visit [place] [address] Markel Borjas MD [facility] [address] [place] [address] Consuelo Sommer APRN [facility] [address] [place] [address] Chronic idiopathic neutropenia; Dysuria Social History Tobacco [...] 07/03/2022 1:30 PM EST Hematology Outpatient Clinic [facility] Hematology Outpatient Consult Note CC: 60 year [...] TOUCH PREP, CLOT SECTION, CORE ??BIOPSY); [OSR# [id number], COLLECTED 06/23/2016, 19 SLIDES]: ?1. 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 Extremities: No edema. Labs: Hgb= 11.7 Xvyb=790 ANC= 2.5 Imaging As above - reviewed [...] AM EDT Appointment H[place] [address] 05/12/2024 10:00 AM EDT Office Visit [place] [address] Markel Borjas MD [facility] [address] [place] [address] 03/01/2025 4:15 PM EDT Office Visit Dermatology at [place] [address] [place] [address] Marek Bonilla MD [address] [facility] [place] [address] documented as of this encounter Procedures Procedure [...] tract infection, submit a new specimen. (A) [facility] Clean Catch Urine 07/03/2022 2:00 PM EST 07/03/2022 5:55 PM EST Narrative Resulting Agency Comment Spec In Lab Markel Borjas MD MICROBIOLOGY - GEN ERAL ORDERABLES Performing Organization Address City/[facility]/ZIP Co de Phone Number [facility] [place] [address] * (ABNORMAL) Urinalysis Microscopic Exam (07/03/2022 2:00 PM EST) RBC, Urine 2 0 - 4 /HPF [facility] WBC, Urine 14(H) 0 - 5 /HPF [facility] Bacteria, Urine Occasional (A) None /HPF [facility] Squamous Epithelial Cells Raw Data, Urine 12(H) <=4 /HPF [facility] Hyaline Casts, Urine 2 0 - 2 /LPF [facility] Clean Catch Urine 07/03/2022 2:00 PM EST 07/03/2022 2:29 PM EST Narrative Resulting Agency Comment Spec In Lab Markel Borjas MD URINE ORDERABLES Performing Organization Address City/[facility]/ZIP Co de Phone Number [facility] [place] [address] * (ABNORMAL) Urinalysis with reflex Culture (07/03/2022 2:00 PM EST) Glucose, Urine Dipstick Negative Negative mg/dL [facility] Protein, Urine Dipstick 30(A) Negative mg/dL [facility] Bilirubin, Urine Dipstick Negative Negative mg/dL [facility] Comment: Clinical correlation required for positive Urine Bilirubin results as false positive may occur with some drugs and drug related products. If a false positive is suspected a serum total bilirubin should be considered if clinically indicated. Urobilinogen, Urine Dipstick Normal Normal mg/dL [facility] pH, Urn (dipstick) 5.5 5.0 - 8.0 [facility] Blood, Urine Dipstick Negative Negative mg/dL [facility] Ketone, Urine Dipstick Trace(A) Negative mg/dL [facility] Nitrite, Urine Dipstick Negative Negative [facility] Leukocytes, Urine Dipstick Small(A) Negative [facility] Appearance, Urine Dipstick Clear Clear [facility] Specific [place] Urine Automated 1.022 1.005 - 1.030 [facility] Color, Urine Dipstick Yellow Yellow [facility] Reflex to Culture Yes [facility] Clean Catch Urine 07/03/2022 2:00 PM EST 07/03/2022 2:29 PM EST Narrative Resulting Agency Comment Spec In Lab Markel Borjas MD URINE ORDERABLES [facility] [place] [address] * (ABNORMAL) Comprehensive metabolic panel (non-fasting) (07/03/2022 12:40 PM EST) Glucose 92 65 - 199 mg/dL [facility] Comment:Diabetes: >=200 mg/d L plus symptoms Blood Urea Nitrogen 22(H) 8 - 18 mg/dL [facility] [...] [facility] Carbon Dioxide 23 22 - 31 mmol/L [facility] Anion Gap 11 5 - 15 mmol/L [facility] Calcium 10.1 8.5 - 10.5 mg/dL [facility] Protein, Total 7.6 6.1 - 8.0 g/dL [facility] Albumin 4.1 3.2 - 5.2 g/dL [facility] Aspartate Aminotransferase 25 0 - 30 unit/L [facility] Alanine Aminotransferase 14 0 - 30 unit/L [facility] Alkaline Phosphatase 80 35 - 105 unit/L [facility] Bilirubin, Total 0.3 0.2 - 1.3 mg/dL [facility] Est Glomerular Filtration Rate 81 >=60 mL/min/1. 73 m?? [facility] [...] ORDERABL ES [facility] [place] [address] documented in this encounter Visit Diagnoses Diagnosis Chronic idiopathic neutropenia Other neutropenia Dysuria documented in this encounter Care Teams International Bank Manager Relationship Specialty Start Date End Date Deborah Quiroga APRN PCP - General Family Medicine 03/24/16 02/04/23 documented as of this encounter
--- OUTSIDE RECORDS SUMMARY | 2024-04-18 14:37 | XMS_ITS | Encounter Summary ---
Author Organization [facility] [place] [address] Care Team Providers Care Readers' Advisory Service Librarian Name Role Phone Deborah Quiroga APRN Primary Care Provider [phone] Encounter Details Date Type Department Care Team (Late st Contact Info) Description 11/09/2022 11:30 AM EDT - 11/09/2022 12:30 PM EDT Surgery [place] [address] Nitesh Escobedo MD [facility] [place] [address] CARDIAC CATHETERIZATION Social History Tobacco Use Types [...] [facility] New Medications to be Picked Up None For questions regarding this document or issues relating to this hospitalization on the Medical Service, please contact your inpatient physician through the [facility] Physiotherapy Assistant . Issues afterhours and on weekends will be handled by the Hospitalist staff on-call. * Attachments The following attachments cannot be sent through Care Everywhere. * Coronary Angiogram: Post-op (Norwegian) * Right Heart Catheterization: Pulmonary Artery Catheterization: Post-op (Norwegian) documented in this encounter Medications at Time of Discharge Medication Sig Dispensed Refills Start Date End Date nystatin (MYCOSTATIN) 100,000 unit/gram Powder Apply topically 2 times daily as needed. 10/22/2022 LinksifyTouch Verio test strips Strip USE DAILY 01/03/2022 LinksifyToSkyBitz Delica Plus Lancet 33 gauge Misc USE [...] MD - 11/09/2022 11:20 AM EDT . [facility] Interventional Cardiology Adult Pre-Procedure H&P Update: Cardiac Catheterization Purnima Thacker [id number] 1955 Chief Complaint: BONILLA HPI: Purnima Thacker [...] Marrero MD Interventional Cardiology 11/09/22 11:43 AM [facility] Pager: [phone] documented in this encounter Plan of Treatment Upcoming Encounters Date Type Department Care Team (Late st Contact Info) Description 05/12/2024 9:00 AM EDT Appointment H[place]ology [place] [address] 05/12/2024 10:00 AM EDT Office Visit Hematology [place] [address] Markel Borjas MD [facility] [address] [place] [address] 03/01/2025 4:15 PM EDT Office Visit Dermatology at [place] [address] [place] [address] Marek Bonilla MD [address] [place] [address] documented as of this encounter Procedures Procedure Name Priority Date/Time Associated Diagnosis Comments CARDIAC CATHETERIZATION Routine 11/10/19 1:05 PM EDT Aortic valve stenosis, etiology of cardiac valve disease unspecified Cath Plmt Left Heart Cath & Arts W/Inj & Angio Img S&I ([id number]) 11/09/2022 11:51 AM EDT Aortic valve stenosis, etiology of cardiac valve disease unspecified EKG 12-LEAD Routine 11/09/2022 11:17 AM EDT Aortic valve stenosis, etiology of cardiac valve disease unspecified documented in this encounter Results * CARDIAC CATHETERIZATION (11/09/2022 1:05 PM EDT) Anatomical Region Laterality Modality Other Narrative 11/09/2022 2:01 PM EDT ?[facility] ? Cardiac Catheterization/Intervention Report ? Patient Name: Kirstie, Purnima M. ? Procedure Date: 11/09/2022 ? A #: [id number] ? Primary Physician: Nitesh Escobedo ? Case #: [id number] ? File Name: [id number] ? Catheterization Order Number: [id number] ? [facility] ? Final Report [place], [place] ? Patient Name: ? Purnima M. Kirstie ? ID#: ?[id number] ? : ?1955 ? Procedure Date: ? [...] was designated as ASA Class III. The [facility] clinical frailty scale ?is 4: Vulnerable. [...] (Bezet) 457 ms MUSE SYSTEM Calculated P [place] 44 degrees MUSE SYSTEM Calculated R [place] 33 degrees MUSE SYSTEM Calculated T [place] 30 degrees MUSE SYSTEM INTERPRETATION Sinus rhythm Occasional Premature ventricular complexes Otherwise normal ECG When compared with ECG of 21-SEP-2016 12:26, Premature ventricular complexes are now Present AK interval has decreased Nonspecific T wave abnormality has replaced inverted T waves in Inferior leads I personally reviewed the tracing and edited the fellows interpretation Confirmed by fellow MD Anitha, Carissa ([id number]) on 11/09/2022 6:17:28 PM Confirmed by Elsa [...] PIV insertion, Cath (Day of Procedure), Routine 121 (Given - Provid er: Nitesh Escobedo MD) [...] MD) documented in this encounter Care Teams Readers' Advisory Service Librarian Relationship Specialty Start Date End Date Junaid Deborah Shields, SOLUTIONS ANALYST PCP - General Family Medicine 03/24/16 02/04/23 documented as of this encounter
--- OUTSIDE RECORDS SUMMARY | 2024-04-18 14:37 | XMS_ITS | Encounter Summary ---
Author Organization [facility] Address [facility] [place] [address] Care Team Providers Care Traveling Sales Representative Name Role Phone Junaid Deborah Shields APRN Primary Care Provider [phone] Encounter Details Date Type Department Care Team (Latest Contact Info) Description 06/22/2022 10:00 AM EST Office [place] [address] Raymond Loredo MD [facility] [place] [address] Raynaud's phenomenon without gangrene; Positive FRANCISCO (antinuclear [...] can be done locally or here at [facility] that the current time is not particularly [...] for surgery by Dr. Rogers here at [facility]. In addition to painful dysesthesias in her [...] over radiocarpal or ulnocarpal joints. Hands: Normal external relations manager and claw. SJC/TJC 0/0. Knees: Decreased [...] AM EDT Appointment Hematology [place] [address] 05/12/2024 10:00 AM EDT Office Visit Hematology [place] [address] Markel Borjas MD [facility] [address] [place] [address] 03/01/2025 4:15 PM EDT Office Visit Dermatology at [place] [address] [place] [address] Marek Bonilla MD [address] [facility] [place] [address] documented as of this encounter Visit Diagnoses Diagnosis Raynaud's phenomenon without gangrene Positive FRANCISCO (antinuclear antibody) Other and unspecified nonspecific immunological findings Primary osteoarthritis involving multiple joints Cervical disc disorder at C6-C7 level with radiculopathy documented in this encounter Care Teams Traveling Sales Representative Relationship Specialty Start Date End Date Deborah Quiroga APRN PCP - General Family Medicine 03/24/16 02/04/23 documented as of this encounter
--- OUTSIDE RECORDS SUMMARY | 2024-04-18 14:37 | XMS_ITS | Encounter Summary ---
Author Organization [place] [address] Care Team Providers Care Monorail Helper Name Role Phone eDborah Quiroga APRN Primary Care Provider [phone] Encounter Details Date Type Department Care Team (Latest Contact Info) Description 07/03/2022 1:36 PM EST - 07/03/2022 11:59 PM EST Hospital Encounter Hematology [place] [address] Discharge Disposition: Home Social History Tobacco Use [...] AM EDT Appointment Hematology [place] [address] 05/12/2024 10:00 AM EDT Office Visit Hematology [place] [address] Markel Borjas MD [facility] [address] HEMATOLOGY [place] [address] 03/01/2025 4:15 PM EDT Office Visit Dermatology at [place] [address] [facility] [place] [address] Marek Bonilla MD [address] [place] [address] documented as of this encounter Procedures Procedure [...] [facility]/ZIP Co de Phone Number [facility] [place] [address] * Vitamin B12 (07/03/2022 1:59 PM EST) Vitamin B12 449 232 - 1,245 pg/mL [facility] Blood Venous Draw / Unknown 07/03/2022 1:59 PM EST 07/03/2022 2:13 PM EST Narrative Resulting Agency Comment Spec In Lab Markel Borjas MD CHEMISTRY ORDERABL ES Performing Organization Address City/[facility]/ZIP Co de Phone Number [facility] [place] [address] documented in this encounter Visit Diagnoses Not on filedocumented in this encounter Care Teams Monorail Helper Relationship Specialty Start Date End Date Deborah Quiroga APRN PCP - General Family Medicine 03/24/16 02/04/23 documented as of this encounter
--- OUTSIDE RECORDS SUMMARY | 2024-04-18 14:37 | XMS_ITS | Encounter Summary ---
Author Organization [facility] [place] [address] Care Team Providers Care Ekg Monitor Tech Name Role Phone Ashley Quirogazac Shields APRN Primary Care Provider [phone] Encounter Details Date Type Department Care Team [...] AM EDT Appointment Hematology [place] [address] 05/12/2024 10:00 AM EDT Office Visit Hematology [place] [address] Markel Borjas MD [facility] [address] [place] [address] 03/01/2025 4:15 PM EDT Office Visit Dermatology at [place] [address] [facility] [place] [address] Marek Bonilla MD [address] [facility] [place] [address] documented as of this encounter Visit Diagnoses Not on filedocumented in this encounter Care Teams Ekg Monitor Tech Relationship Specialty Start Date End Date Deborah Quiroga APRN PCP - General Family Medicine 03/24/16 02/04/23 documented as of this encounter
--- OUTSIDE RECORDS SUMMARY | 2024-04-18 14:37 | XMS_ITS | Encounter Summary ---
Author Organization [facility] Address [facility] Erika lópez[place] [address] Care Team Providers Care Coater Carbon Paper Name Role Phone Deborah Quiroga APRN Primary Care Provider [phone] Encounter Details Date Type Department Care Team (Late st Contact Info) Description 01/09/2022 Refill Dermatology at [address] [address] Lupe Connor RN Social History [...] AM EDT Appointment Hematology [place] [address] 05/12/2024 10:00 AM EDT Office Visit Hematology [place] [address] Markel Borjas MD [facility] [address] [place] [address] 03/01/2025 4:15 PM EDT Office Visit Dermatology at [address] [address] Marek Bonilla MD [address] [facility] [address] [address] [address], [place] [address] documented as of this encounter Visit Diagnoses Not on filedocumented in this encounter Care Teams Coater Carbon Paper Relationship Specialty Start Date End Date Deborah Quiroga APRN PCP - General Family Medicine 03/24/16 02/04/23 documented as of this encounter
--- OUTSIDE RECORDS SUMMARY | 2024-04-18 14:37 | XMS_ITS | Encounter Summary ---
Author Organization [facility] [place] [address] Care Team Providers Care Research Support Specialist Name Role Phone Magdalena Acosta [...] AM EDT Appointment Hematology [place] [address] 05/12/2024 10:00 AM EDT Office Visit Hematology [place] [address] Markel Borjas MD [facility] [address] [place] [address] 03/01/2025 4:15 PM EDT Office Visit Dermatology at [place] [address] [facility] [place] [address] Marek Bonilla MD [address] [facility], [place] [address] documented as of this encounter Visit Diagnoses Not on filedocumented in this encounter Care Teams Research Support Specialist Relationship Specialty Start Date End Date Magdalena Acosta MD [address] [place] [address] PCP - General Family Medicine 02/05/23 documented as of this encounter
--- OUTSIDE RECORDS SUMMARY | 2024-04-18 14:37 | XMS_ITS | Encounter Summary ---
Author Organization [facility] [place] [address] Care Team Providers Care Batch Records Clerk Name Role Phone Magdalena Acosta MD Primary Care Provider [phone] Encounter Details Date Type Department Care Team (Late st Contact Info) Description 03/29/2023 Orders Only Cardiology at [address] [address] Ranjan Delgado MD [facility] [place] [address] Severe aortic stenosis (Primary Dx) Social History [...] AM EDT Appointment Hematology [place] [address] 05/12/2024 10:00 AM EDT Office Visit [place]ematology [place] [address] Markel Borjas MD [facility] [place] [address] 03/01/2025 4:15 PM EDT Office Visit Dermatology at [place] [address] [place] [address] Marek Bonilla MD [address] [place] [address] Scheduled Orders Name Type Priority Associated Diagnoses [...] disorders documented in this encounter Care Teams Batch Records Clerk Relationship Specialty Start Date End Date Magdalena Acosta MD [address] [place] [address] PCP - General Family Medicine 02/05/23 documented as of this encounter
--- OUTSIDE RECORDS SUMMARY | 2024-04-18 14:37 | XMS_ITS | Encounter Summary ---
Author Organization [facility] Address [facility] [place] [address] Care Team Providers Care Nutritional Chemist Name Role Phone Magdalena Acosta MD Primary Care Provider [phone] Encounter Details Date Type Department Care Team (Late st Contact Info) Description 04/27/2023 3:00 PM EDT [place] [address] Magdalena Peralta MD [facility] [place] [address] Mixed connective tissue disease Social History Tobacco [...] documented in this encounter Progress Notes * Mgadalena Peralta MD - 04/27/2023 3:00 PM EDT [...] 1:5120 speckled; VIC negative; Myositis panel with ELECTROPHYSIOLOGY TECHNOLOGIST ab 149.1 (positive); Anti U1RNP IgG 119; [...] AM EDT Appointment [place] [address] 05/12/2024 10:00 AM EDT Office Visit [place] [address] Markel Borjas MD [facility] [address] [place] [address] 03/01/2025 4:15 PM EDT Office Visit Dermatology at [place] [address] [place] [address] Marek Bonilla MD [address] [place] [address] documented as of this encounter Visit Diagnoses Diagnosis Mixed connective tissue disease Other specified diffuse disease of connective tissue documented in this encounter Care Teams Nutritional Chemist Relationship Specialty Start Date End Date Magdalena Acosta MD [address] [place] [address] PCP - General Family Medicine 02/05/23 documented as of this encounter
--- OUTSIDE RECORDS SUMMARY | 2024-04-18 14:37 | XMS_ITS | Encounter Summary ---
Author Organization [facility] Address [facility] Erika [facility] [place] [address] Care Team Providers Care Bandage Maker Name Role Phone Deborah Quiroga APRN Primary Care Provider [phone] Reason for Visit * Consultation (Routine) - Closed Specialty Diagnoses / Procedures Referred By Contkrystle t Referred To Contact Rheumatology Diagnoses Positive FRANCISCO (antinuclear antibody) Arthralgia, unspecified joint Sandy Wu APRN [address] [place] [address] [facility] Rheumatology [address] [place] [address] Referral ID Status Reason Start Date Expiration Date V isits Requested Visits Authorized [id number] Closed Consult, Test & Treat PCP Updated and/or Approved 01/01/2022 01/01/2023 6 6 Encounter Details Date Type Department Care Team (Latest Contact Info) Description 01/20/2022 10:00 AM EDT Office [place] [address] Raymond Loredo MD [facility] [place] [address] Rosacea; Raynaud's phenomenon without gangrene; [...] over radiocarpal or ulnocarpal joints. Hands: Normal vocational rehabilitation teacher and claw. SJC/TJC 0/0. Hips: Full motion, [...] be done locally or here at [facility] that the current time is not particularly interested it seems Raymond Loredo MD documented in this encounter Plan of Treatment Upcoming Encounters Date Type Department Care Team (Late st Contact Info) Description 05/12/2024 9:00 AM EDT Appointment Hematology [place] [address] 05/12/2024 10:00 AM EDT Office Visit [place]ematology [place] [address] Markel Borjas MD [facility] DR [place] [address] 03/01/2025 4:15 PM EDT Office Visit Dermatology at [address] [place] [address] Marek Bonilla MD [address] [place] [address] Scheduled Referrals Name Type Priority Associated Diagnoses [...] syndrome documented in this encounter Care Teams Bandage Maker Relationship Specialty Start Date End Date Junaid, Deborah E, SHOP FIRER/FIREMAN PCP - General Family Medicine 03/24/16 02/04/23 documented as of this encounter
--- OUTSIDE RECORDS SUMMARY | 2024-04-18 14:37 | XMS_ITS | Encounter Summary ---
[place] [address] Care Team Providers Care Frontload Driver Name Role Phone Magdalena Acosta MD Primary Care Provider [phone] Reason for Visit * Reason Comments Skin Lesion Encounter Details Date Type Department Care Team (Late st Contact Info) Description 04/20/2023 10:00 AM EDT Office Visit Dermatology at [address] [address] Marek Bonilla MD [address] [facility] [place] [address] Seborrheic keratosis Social History Tobacco Use Types [...] cutaneous and ocular 3. Previously told by senior clinical data manager that she had corneal tears from [...] AM EDT Appointment Hematology [place] [address] 05/12/2024 10:00 AM EDT Office Visit Hematology [place] [address] Markel Borjas MD [facility] [address] [place] [address] 03/01/2025 4:15 PM EDT Office Visit Dermatology at [address] [place] [address] Marek Bonilla MD [address] [facility] [place] [address] documented as of this encounter Visit Diagnoses Diagnosis Seborrheic keratosis Other seborrheic keratosis documented in this encounter Care Teams Frontload Driver Relationship Specialty Start Date End Date Magdalena Acosta MD [address] [place] [address] PCP - General Family Medicine 02/05/23 documented as of this encounter
--- OUTSIDE RECORDS SUMMARY | 2024-04-18 14:37 | XMS_ITS | Encounter Summary ---
Author Organization [facility] [place] [address] Care Team Providers Care Exhibitions Curator Name Role Phone Deborah Quiroga APRN Primary Care Provider [phone] Encounter Details Date Type Department Care Team (Latest Contact Info) Description 07/03/2022 12:28 PM EST - 07/03/2022 1:35 PM EST Hospital Encounter [place]ology [place] [address] Chronic idiopathic neutropenia Discharge Disposition: Home Social [...] AM EDT Appointment Hematology [place] [address] 05/12/2024 10:00 AM EDT Office Visit [place]ematology [place] [address] Markel Borjas MD [facility] [address] HEMATOLOGY [place] [address] 03/01/2025 4:15 PM EDT Office Visit Dermatology at [place] [address] [facility] [place] [address] Marek Bonilla MD [address] [facility] [address], [place] [address] documented as of this encounter Procedures Procedure [...] 12:40 PM EST) Neutrophil % 72.9 % [facility] Neutrophil Absolute 2.61 1.70 - 6.10 x10(3)/mc L [facility] Lymph % 18.4 % [facility] Lymphocytes Abs 0.7(L) 0.9 - 3.2 x10(3)/mc L [facility] Monocyte % 8.4 % [facility] Monocyte Abs 0.3 0.3 - 0.9 x10(3)/mc L [facility] Eos % 0.0 % [facility] Eosinophils Abs 0.0 0.0 - 0.4 x10(3)/mc L [facility] Basophil % 0.3 % [facility] Baso [...] x10(3)/mc L [facility] Blood 07/03/2022 12:4 0 PM EST 07/03/2022 1:03 PM EST Narrative Resulting Agency Comment Spec In Lab Markel Borjas MD HEMATOLOGY ORDERAB LES [facility] [place] [address] * (ABNORMAL) Hemogram (07/03/2022 12:40 PM EST) White Blood Cell 3.6(L) 4.0 - 9.5 x10(3)/ L [facility] Red Blood Cell 3.61(L) 4.00 - 5.21 x10(6)/mc L [facility] Hemoglobin 11.7 11.7 - 15.5 g/dL [facility] Hematocrit 34.5(L) 35.7 - 45.8 % [facility] Mean Cell Volume 95.6(H) 82.6 - 94.4 fL [facility] Mean Cell Hemoglobin 32.4(H) 27.1 - 32.0 pg [facility] Mean Cell Hemoglobin Concentration 33.9 31.7 - 35.0 g/dL [facility] Platelet 171 145 - 357 x10(3)/mc L [facility] RDW Standard Deviation 40.5 37.0 - 46.0 fL [facility] RDW coefficient of variation 11.5 11.5 - 14.1 % [facility] Mean Platelet Volume 9.2 7.6 - 12.9 fL [facility] NRBC% auto 0.0 % [facility] NRBC Absolute 0.000 0.000 - 0.000 x10(3)/ L [facility] Blood 07/03/2022 12:4 0 PM EST 07/03/2022 1:03 PM EST Narrative Resulting Agency Comment Spec In Lab Markel Borjas MD HEMATOLOGY ORDERAB LES [facility] [place] [address] * (ABNORMAL) Comprehensive metabolic panel (non-fasting) (07/03/2022 12:40 PM EST) Glucose 92 65 - 199 mg/dL [facility] Comment:Diabetes: >=200 mg/d L plus symptoms Blood Urea Nitrogen 22(H) 8 - 18 mg/dL [facility] [...] mmol/L [facility] Carbon Dioxide 23 22 - 31 mmol/L [facility] Anion Gap 11 5 - 15 mmol/L [facility] Calcium 10.1 8.5 - 10.5 mg/dL [facility] Protein, Total 7.6 6.1 - 8.0 g/dL [facility] Albumin 4.1 3.2 - 5.2 g/dL [facility] Aspartate Aminotransferase 25 0 - 30 unit/L [facility] Alanine Aminotransferase 14 0 - 30 unit/L [facility] Alkaline Phosphatase 80 35 - 105 unit/L [facility] Bilirubin, Total 0.3 0.2 - 1.3 mg/dL [facility] Est Glomerular Filtration Rate 81 >=60 mL/min/1. 73 m?? [facility] [...] CHEMISTRY ORDERABL ES [facility] [place] [address] documented in this encounter Visit Diagnoses Diagnosis Chronic idiopathic neutropenia Other neutropenia documented in this encounter Care Teams Exhibitions Curator Relationship Specialty Start Date End Date Deborah Quiroga APRN PCP - General Family Medicine 03/24/16 02/04/23 documented as of this encounter
--- OUTSIDE RECORDS SUMMARY | 2024-04-18 14:37 | XMS_ITS | Encounter Summary ---
Author Organization [facility] Address [facility] [place] [address] Care Team Providers Care Research Phlebotomist Name Role Phone Deborah Quiroga ANURAG Primary Care Provider [phone] Encounter Details Date Type Department Care Team (Late st Contact Info) Description 01/14/2023 Refill Dermatology at [address] [address] Lupe Connor RN Social History [...] She would like the medication called into [facility] in [facility]. Discussed with Dr. Bonilla and he has approved refill of the Doxycycline 50 mg take one capsule by mouth daily in the evenings dispense 30 capsules with 2 refills. Patient notified. documented in this encounter Plan of Treatment Upcoming Encounters Date Type Department Care Team (Late st Contact Info) Description 05/12/2024 9:00 AM EDT Appointment Hematology [place] [address] 05/12/2024 10:00 AM EDT Office Visit Hematology [place] [address] Markel Borjas MD [facility] [address] [place] [address] 03/01/2025 4:15 PM EDT Office Visit Dermatology at [place] [address] [facility] [place] [address] Marek Bonilla MD [address] [facility] [address] [place] [address] documented as of this encounter Visit Diagnoses Not on filedocumented in this encounter Care Teams Research Phlebotomist Relationship Specialty Start Date End Date Deborah Quiroga APRN PCP - General Family Medicine 03/24/16 02/04/23 documented as of this encounter
--- OUTSIDE RECORDS SUMMARY | 2024-04-18 14:37 | XMS_ITS | Encounter Summary ---
Author Organization [facility] [place] [address] Care Team Providers Care Web Press Operator Assistant Name Role Phone Deborah Quiroga APRN Primary Care Provider [phone] Encounter Details Date Type Department Care Team (Late st Contact Info) Description 06/08/2022 Ancillary Procedure Radiology Library at [facility] [place] [phone] Deborah Quiroga APRN [address] [place] [address] [address] [place] [address] Social History Tobacco Use Types Packs/Day Years [...] AM EDT Appointment Hematology [place] [address] 05/12/2024 10:00 AM EDT Office Visit [place]ematology [place] [address] Markel Borjas MD [facility] HEMATOLOGY [place] [address] 03/01/2025 4:15 PM EDT Office Visit Dermatology at [place] [address] [place] [address] Marek Bonilla MD [address] [facility] [address], [place] [address] documented as of this encounter Procedures Procedure Name Priority Date/Time Associated Diagnosis Comments FILM LIBRARY STORAGE ONLY DX SPINE Routine 06/08/2022 12:00 AM EST documented in this encounter Results * Film Library- Storage Only DX Spine (06/08/2022 12:00 AM EST) Narrative [facility] - 06/18/2022 10:57 AM EST This exam is auto-finalizing. It's purpose is for storage only. Deborah Quiroga APRN IMG FILM LIBRARY OR DERABLES Performing Organization Address City/State/[facility] de Phone Number [place], [place] documented in this encounter Visit Diagnoses Not on filedocumented in this encounter Care Teams Web Press Operator Assistant Relationship Specialty Start Date End Date Deborah Quiroga APRN PCP - General Family Medicine 03/24/16 02/04/23 documented as of this encounter
--- OUTSIDE RECORDS SUMMARY | 2024-04-18 14:37 | XMS_ITS | Encounter Summary ---
Author Organization [facility] [place] [address] Care Team Providers Care Banking Paralegal Name Role Phone Magdalena Acosta MD Primary Care Provider [phone] Encounter Details Date Type Department Care Team (Late st Contact Info) Description 05/08/2023 [place] [phone] Luis Felipe Ott MD [facility] [address] Social History Tobacco Use Types Packs/Day Years [...] Referring Provider: Nitesh Baltazar Patient Location: [facility] Presenting Symptoms per OSH: 67 year old [...] diuresis with IV furosemide 20 x 1 (tcycgnatqx34/47 at rheumatology appointment), SpO2 85% on RA -> 95% on 2L NC, HR 120s. Examination significant for decreased breath sounds at the bases. Pertinent Diagnostic Findings: CBC - Hgb 10.5 CMP - Cr 1.1 BNP 70408 HsTrop 1358 Lactate 1.6 D-dimer 1183, CTPE pending CXR demonstrated pulmonary vascular congestion US showed bilateral b lines Bedside echo reportedly similar to prior TTE for LV function OSH Interventions: ASA 324 Heparin gtt Plan: Transfer to [facility] Above recommendations/plans are based on my conversation with the referring provider. I have not personally interviewed or examined this patient. Luis Felipe Ott MD Adjuster And Inspector Received a call from provider emergently at 715am. Mentating well and BP 87/53. HR 108 and diursingwell. They were about to start phenylephrine which I stressed was not a good option given concern for severe and increasing afterload. She is warm on exam, mentating and urinating and we do not need to amrit a BP if those things remain stable. Nico Segura, PGY-6 Adjuster And Inspector [id number] documented in this encounter Plan of Treatment Upcoming Encounters Date Type Department Care Team (Late st Contact Info) Description 05/12/2024 9:00 AM EDT Appointment Hematology [place] [address] 05/12/2024 10:00 AM EDT Office Visit Hematology [place] [address] Markel Borjas MD [facility] [address] HEMAT[place] [address] 03/01/2025 4:15 PM EDT Office Visit Dermatology at [place] [address] [place] [address] Marek Bonilla MD [address] [facility] [address] [place] [address] documented as of this encounter Visit Diagnoses Not on filedocumented in this encounter Care Teams Banking Paralegal Relationship Specialty Start Date End Date Magdalena Acosta MD [address] [place] [address] PCP - General Family Medicine 02/05/23 documented as of this encounter
--- OUTSIDE RECORDS SUMMARY | 2024-04-18 14:37 | XMS_ITS | Encounter Summary ---
Author Organization [facility] [place] [address] Care Team Providers Care Hand Violin Maker Name Role Phone Magdalena Acosta MD Primary Care Provider [phone] Encounter Details Date Type Department Care Team [...] AM EDT Appointment Hematology [place] [address] 05/12/2024 10:00 AM EDT Office Visit Hematology [place] [address] [facility] [address] [place] [address] 03/01/2025 4:15 PM EDT Office Visit Dermatology at [place] [address] [facility] [place] [address] Marek Bonilla MD [address] [facility], [place] [address] documented as of this encounter Visit Diagnoses Not on filedocumented in this encounter Care Teams Hand Violin Maker Relationship Specialty Start Date End Date Magdalena Acosta MD [address] [place] [address] PCP - General Family Medicine 02/05/23 documented as of this encounter
--- OUTSIDE RECORDS SUMMARY | 2024-04-18 14:37 | XMS_ITS | Encounter Summary ---
Author Organization [facility] [place] [address] Care Team Providers Care Fancy Packer Name Role Phone Deborah Quiroga APRN Primary Care Provider [phone] Reason for Referral * Consultation (Routine) - Closed Specialty Diagnoses / Procedures Referred By Crispin maxwell Referred To Contact Neurology Diagnoses Polyneuropathy Deborah Quiroga APRN [address] [place] [address] [facility] Neurology [address] [place] [phone] Referral ID Status Reason Start Date Expiration Date V isits Requested Visits Authorized [id number] Closed Consult, Test & Treat 10/29/2022 10/29/2023 1 1 Encounter Details Date Type Department Care Team (Latest Contact Info) Description 10/29/2022 Transcribe Orders eDH Incoming Referrals [phone] Deborah Quiroga APRN [address] [place] [address] Polyneuropathy (Primary Dx) Social History [...] AM EDT Appointment Hematology [place] [address] 05/12/2024 10:00 AM EDT Office Visit Hematology [place] [address] Markel Borjas MD [facility] [address] [place] [address] 03/01/2025 4:15 PM EDT Office Visit Dermatology at [place] [address] [facility] [place] [address] Marek Bonilla MD [address] [facility] [address] [place] [address] Scheduled Referrals Name Type Priority Associated Diagnoses Orde r Schedule Referral to Neurology Outpatient Referral Routine Polyneuropathy Ordered: 10/29/2022 documented as of this encounter Visit Diagnoses Diagnosis Polyneuropathy- Primary Unspecified hereditary and idiopathic peripheral neuropathy documented in this encounter Care Teams Fancy Packer Relationship Specialty Start Date End Date Deborah Quiroga APRN PCP - General Family Medicine 03/24/16 02/04/23 documented as of this encounter
--- OUTSIDE RECORDS SUMMARY | 2024-04-18 14:37 | XMS_ITS | Encounter Summary ---
Author Organization [facility] [place] [address] Care Team Providers Care Grounds Maintenance Worker Name Role Phone Magdalena Acosta MD Primary Care Provider [phone] Encounter Details Date Type Department Care Team [...] AM EDT Appointment Hematology [place] [address] 05/12/2024 10:00 AM EDT Office Visit Hematology [place] [address] Markel Borjas MD [facility] [address] HEMATOLOGY [place] [address] 03/01/2025 4:15 PM EDT Office Visit Dermatology at [place] [address] [facility] [place] [address] Marek Bonilla MD [address] [facility], [place] [address] documented as of this encounter Visit Diagnoses Not on filedocumented in this encounter Care Teams Grounds Maintenance Worker Relationship Specialty Start Date End Date Magdalena Acosta MD [address] [place] [address] PCP - General Family Medicine 02/05/23 documented as of this encounter
--- OUTSIDE RECORDS SUMMARY | 2024-04-18 14:37 | XMS_ITS | Encounter Summary ---
Author Organization [facility] [place] [address] Care Team Providers Care Varnish Blender Name Role Phone Ashley Quirogazac Shields APRN Primary Care Provider [phone] Encounter Details Date Type Department Care Team [...] EDT Appointment Hematology [place] [address] 05/12/2024 10:00 AM EDT Office Visit Hematology [place] [address] Markel Borjas MD [facility] [address] [place] [address] 03/01/2025 4:15 PM EDT Office Visit Dermatology at [place] [address] [facility] [place] [address] Marek Bonilla MD [address] [facility], [address] [place] [address] documented as of this encounter Visit Diagnoses Not on filedocumented in this encounter Care Teams Varnish Blender Relationship Specialty Start Date End Date Deborah Quiroga APRN PCP - General Family Medicine 03/24/16 02/04/23 documented as of this encounter
--- OUTSIDE RECORDS SUMMARY | 2024-04-18 14:37 | XMS_ITS | Encounter Summary ---
Author Organization [facility] [place] [address] Care Team Providers Care Filler Wiper Name Role Phone Ashley Quirogan Cornelius ANURAG Primary Care Provider [phone] Encounter Details Date Type Department Care Team (Late st Contact Info) Description 11/02/2022 Orders [place] [address] [facility] [place] [address] Aortic valve stenosis, etiology of cardiac valve [...] AM EDT Appointment Hematology [place] [address] 05/12/2024 10:00 AM EDT Office Visit Hematology [place] [address] [facility] [address] HEMATOLOGY AND ONCOLOGY [place], [place] [address] 03/01/2025 4:15 PM EDT Office Visit Dermatology at [place] [address] [facility] [place] [address] Marek Bonilla MD [address] [facility] [place] [address] documented as of this encounter Visit Diagnoses Diagnosis Aortic valve stenosis, etiology of cardiac valve disease unspecified documented in this encounter Care Teams Filler Wiper Relationship Specialty Start Date End Date Deborah Quiroga, POULTRY FARM LABORER PCP - General Family Medicine 03/24/16 02/04/23 documented as of this encounter
--- OUTSIDE RECORDS SUMMARY | 2024-04-18 14:37 | XMS_ITS | Encounter Summary ---
Author Organization [facility] [place] [address] Care Team Providers Care Kiss Machine Operator Name Role Phone Magdalena Acosta MD Primary Care Provider Reason for Referral * Consultation (Routine) - Closed Specialty Diagnoses / Procedures Referred By Contac t Referred To Contact Rheumatology Diagnoses Weakness Kyra Haas MD [facility] [address] [place] [address] [facility] Rheumatology [address] [place] [phone] Referral ID Status Reason Start Date Expiration Date V isits Requested Visits Authorized [id number] Closed Consult, Test & Treat PCP Updated and/or Approved 02/25/2023 02/25/2024 6 6 Encounter Details Date Type Department Care Team (Late st Contact Info) Description 02/25/2023 Transcribe Orders eDH Incoming Referrals [phone] Magdalena Acosta MD [address] [place] [address] Weakness Social History Tobacco Use [...] AM EDT Appointment [place] [address] 05/12/2024 10:00 AM EDT Office Visit [place] [address] Markel Borjas MD [facility] [address] [place] [address] 03/01/2025 4:15 PM EDT Office Visit Dermatology at [place] [address] [facility] [address] [place] [address] Marek Bonilla MD [address] [facility] [address] [place] [address] Scheduled Referrals Name Type Priority Associated Diagnoses Order Schedule Referral to Rheumatology Outpatient Referral Routine Weakness Ordered: 02/25/2023 documented as of this encounter Visit Diagnoses Diagnosis Weakness Other malaise and fatigue documented in this encounter Care Teams Kiss Machine Operator Relationship Specialty Start Date End Date Magdalena Acosta MD [address] [place] [address] PCP - General Family Medicine 02/05/23 documented as of this encounter
--- OUTSIDE RECORDS SUMMARY | 2024-04-18 14:37 | XMS_ITS | Encounter Summary ---
[place] [address] Care Team Providers Care Participant Administrator Name Role Phone Ashley Quirogazac Shields APRN Primary Care Provider [phone] Reason for Visit * Reason Comments Annual Exam Encounter Details Date Type Department Care Team (Late st Contact Info) Description 01/09/2022 3:15 PM EDT Office Visit Dermatology at [address] [address] Marek Bonilla MD [address] [facility], [address] DERMATOLOGY [place], [place] [phone] Rosacea Social History Tobacco Use Types Packs/Day [...] cutaneous and ocular 2. Previously told by counter clerk farm equipment parts that she had corneal tears from her [...] refills. We will call this into her [facility] in [place] 3. Continue metronidazole 0.75% gel applying every [...] AM EDT Appointment Hematology [place] [address] 05/12/2024 10:00 AM EDT Office Visit Hematology [place] [address] Markel Borjas MD [facility] [address] [place] [address] 03/01/2025 4:15 PM EDT Office Visit Dermatology at [place] [address] [facility] [place] [address] Marek Bonilla MD [address] [facility], [place] [address] documented as of this encounter Visit Diagnoses Diagnosis Rosacea documented in this encounter Care Teams Participant Administrator Relationship Specialty Start Date End Date Deborah Quiroga APRN PCP - General Family Medicine 03/24/16 02/04/23 documented as of this encounter
--- OUTSIDE RECORDS SUMMARY | 2024-04-18 14:37 | XMS_ITS | Encounter Summary ---
Author Organization [facility] [place] [address] Care Team Providers Care Leather Seasoner Name Role Phone Magdalena Acosta MD Primary Care Provider [phone] Encounter Details Date Type Department Care Team [...] AM EDT Appointment Hematology [place] [address] 05/12/2024 10:00 AM EDT Office Visit [place]ematology [place] [address] Markel Borjas MD [facility] [address] HEMATOLOGY [place] [address] 03/01/2025 4:15 PM EDT Office Visit Dermatology at [place] [address] [facility] [place] [address] Marek Bonilla MD 580 [facility], [place] [address] documented as of this encounter Visit Diagnoses Not on filedocumented in this encounter Care Teams Leather Seasoner Relationship Specialty Start Date End Date Magdalena Acosta MD [address] [place] [address] PCP - General Family Medicine 02/05/23 documented as of this encounter
--- OUTSIDE RECORDS SUMMARY | 2024-04-18 14:37 | XMS_ITS | Encounter Summary ---
[place] [address] Care Team Providers Care Refrigerating Machine Operator Name Role Phone Deborah Quiroga APRN Primary Care Provider [phone] Reason for Referral * Consultation (Routine) - Closed Specialty Diagnoses / Procedures Referred By Contac t Referred To Contact Rheumatology Diagnoses Positive FRANCISCO (antinuclear antibody) Arthralgia, unspecified joint Sandy Wu APRN [address] [place] [address] [facility] Rheumatology [address] [place] [phone] Referral ID Status Reason Start Date Expiration Date V isits Requested Visits Authorized [id number] Closed Consult, Test & Treat PCP Updated and/or Approved 01/01/2022 01/01/2023 6 6 Encounter Details Date Type Department Care Team (Latest Contact Info) Description 01/01/2022 Transcribe Orders eDH Incoming Referrals [phone] Sandy Wu APRN [address] [place], [place] [id number] Positive FRANCISCO (antinuclear antibody); Arthralgia, unspecified joint [...] AM EDT Appointment Hematology [place] [address] 05/12/2024 10:00 AM EDT Office Visit Hematology [place] [address] Markel Borjas MD [facility] [address] [place] [address] 03/01/2025 4:15 PM EDT Office Visit Dermatology at [place] [address] [facility] [place] [phone] Marek Bonilla MD [address] [place] [address] Scheduled Referrals Name Type Priority Associated Diagnoses Orde r Schedule Referral to Rheumatology Outpatient Referral Routine Positive FRANCISCO (antinuclear antibody) Arthralgia, unspecified joint Ordered: 01/01/2022 documented as of this encounter Visit Diagnoses Diagnosis Positive FRANCISCO (antinuclear antibody) Other and unspecified nonspecific immunological findings Arthralgia, unspecified joint documented in this encounter Care Teams Refrigerating Machine Operator Relationship Specialty Start Date End Date Deborah Quiroga APRN PCP - General Family Medicine 03/24/16 02/04/23 documented as of this encounter
--- OUTSIDE RECORDS SUMMARY | 2024-04-18 14:37 | XMS_ITS | Encounter Summary ---
Author Organization [facility] [place] [address] Care Team Providers Care [employer] Library Media Specialist Name Role Phone Ashley Quirogazac Shields APRN Primary Care Provider [phone] Encounter Details Date Type Department Care Team [...] AM EDT Appointment Hematology [place] [address] 05/12/2024 10:00 AM EDT Office Visit Hematology [place] [address] Markel Borjas MD [facility] [address] [place] [address] 03/01/2025 4:15 PM EDT Office Visit Dermatology at [place] [address] [facility] [place] [phone] Marek Bonilla MD [address] [facility] [place] [address] documented as of this encounter Visit Diagnoses Not on filedocumented in this encounter Care Teams High [employer] Library Media Specialist Relationship Specialty Start Date End Date Deborah Quiroga APRN PCP - General Family Medicine 03/24/16 02/04/23 documented as of this encounter
--- OUTSIDE RECORDS SUMMARY | 2024-04-18 14:37 | XMS_ITS | Encounter Summary ---
Author Organization [facility] [place] [address] Care Team Providers Care Classifier Operator Name Role Phone Deborah Quiroga APRN Primary Care Provider [phone] Encounter Details Date Type Department Care Team (Late st Contact Info) Description 06/17/2022 Ancillary Procedure Radiology Library at [facility] [place] [phone] Deborah Quiroga APRN [address] [place] [address] [address] [place] [address] Social History Tobacco Use Types Packs/Day Years [...] AM EDT Appointment [place] [address] 05/12/2024 10:00 AM EDT Office Visit [place] [address] Markel Borjas MD [facility] [place] [address] 03/01/2025 4:15 PM EDT Office Visit Dermatology at [place] [address] [place] [address] Marek Bonilla MD [address], [place] [address] documented as of this encounter Procedures Procedure Name Priority Date/Time Associated Diagnosis Comments FILM LIBRARY STORAGE ONLY MR SPINE Routine 06/17/2022 12:00 AM EST documented in this encounter Results * Film Library- Storage Only MR Spine (06/17/2022 12:00 AM EST) Narrative [facility] - 06/18/2022 11:00 AM EST This exam is auto-finalizing. It's purpose is for storage only. Deborah Quiroga APRN IMG FILM LIBRARY OR DERABLES Performing Organization Address City/State/[facility] de Phone Number [place], [place] documented in this encounter Visit Diagnoses Not on filedocumented in this encounter Care Teams Classifier Operator Relationship Specialty Start Date End Date Deborah Quiroga APRN PCP - General Family Medicine 03/24/16 02/04/23 documented as of this encounter
--- OUTSIDE RECORDS SUMMARY | 2024-04-18 14:37 | XMS_ITS | Encounter Summary ---
Author Organization [facility] [place] [address] Care Team Providers Care Assistant Professor Of Life Sciences Name Role Phone Magdalena Acosta MD Primary Care Provider [phone] Encounter Details Date Type Department Care Team (Latest Contact Info) Description 02/05/2023 9:33 PM EDT - 02/05/2023 11:59 PM EDT [place] [phone] Discharge Disposition: Home Social History Tobacco Use [...] AM EDT Appointment Hematology [place] [address] 05/12/2024 10:00 AM EDT Office Visit Hematology [place] [address] Markel Borjas MD [facility] [address] [place] [address] 03/01/2025 4:15 PM EDT Office Visit Dermatology at [place] [address] [facility] [place] [address] Marek Bonilla MD [address], [place] [address] documented as of this encounter Procedures Procedure Name Priority Date/Time Associated Diagnosis Comments SURGICAL PATHOLOGY REPORT Routine 02/05/2023 3:00 PM EDT documented in this encounter Results * Surgical Pathology Report (02/05/2023 3:00 PM EDT) Final Diagnosis [id number] ? Location: OPW The signing pathologist has (i) examined the relevant preparation(s) for the specimen(s) and (ii) rendered or confirmed the diagnosis(es). . ?Surgical Pathology DIAGNOSIS Left upper back, skin punch biopsy: - ??Compound dysplastic ??melanocytic nevus with moderate atypia, transected at peripheral specimen edges ?? (see discussion) Electronically signed by: ?Vanna CULP, Jesse Shields Verified: ??02/16/2023 8:04 ?? Dermatopathologist Performed at: ??-[facility] Dept. of Pathology, [place] [address] Tow Truck Dispatcher: Kunal Rubi MD, AP, ??CLIA Certificate: [id number] DISCUSSION If there is an obvious clinical [...] EDT Marek Bonilla MD PATHOLOGY/CYTOLOGY O [facility] [place] [address] [facility] [place] [address] documented in this encounter Visit Diagnoses Not on filedocumented in this encounter Care Teams Assistant Professor Of Life Sciences Relationship Specialty Start Date End Date Magdalena Acosta MD [address] [place] [address] PCP - General Family Medicine 02/05/23 documented as of this encounter
--- OUTSIDE RECORDS SUMMARY | 2024-04-18 14:37 | XMS_ITS | Encounter Summary ---
Author Organization [facility] [place] [address] Care Team Providers Care Hand Frame Surgical Elastic Knitter Name Role Phone Magdalena Acosta MD [...] AM EDT Appointment Hematology [place] [address] 05/12/2024 10:00 AM EDT Office Visit [place]ematology [place] [address] Markel Borjas MD [facility] [address] HEMATOLOGY [place] [address] 03/01/2025 4:15 PM EDT Office Visit Dermatology at [place] [address] [facility] [place] [address] Marek Bonilla MD [address] [facility], [place] [address] documented as of this encounter Visit Diagnoses Not on filedocumented in this encounter Care Teams Hand Frame Surgical Elastic Knitter Relationship Specialty Start Date End Date Magdalena Acosta MD [address] [place] [address] PCP - General Family Medicine 02/05/23 documented as of this encounter
--- OUTSIDE RECORDS SUMMARY | 2024-04-18 14:37 | XMS_ITS | Encounter Summary ---
Author Organization [facility] [place] [address] Care Team Providers Care Slab Installer Name Role Phone Magdalena Acosta MD Primary Care Provider [phone] Encounter Details Date Type Department Care Team (Late st Contact Info) Description 02/17/2023 2:00 PM EDT Office [place] [address] Alirio Esparza MD Aortic valve stenosis, etiology [...] AM EDT Appointment Hematology [place] [address] 05/12/2024 10:00 AM EDT Office Visit Hematology [place] [address] Markel Borjas MD [facility] [address] HEMATOLOGY [place] [address] 03/01/2025 4:15 PM EDT Office Visit Dermatology at [place] [address] [place] [address] Marek Bonilla MD [address] [facility], [place] [address] documented as of this encounter Visit Diagnoses Diagnosis Aortic valve stenosis, etiology of cardiac valve disease unspecified documented in this encounter Care Teams Slab Installer Relationship Specialty Start Date End Date Magdalena Acosta MD [address] [place] [address] PCP - General Family Medicine 02/05/23 documented as of this encounter
--- OUTSIDE RECORDS SUMMARY | 2024-04-18 14:37 | XMS_ITS | Encounter Summary ---
Author Organization [facility] [place] [address] Care Team Providers Care Silver Solderer Name Role Phone Junaid Deborah Shields APRN Primary Care Provider [phone] Encounter Details Date Type Department Care Team (Latest Contact Info) Description 11/09/2022 10:37 AM EDT - 11/09/2022 4:53 PM EDT Hospital Encounter [place] [address] Nitesh Escobedo MD [facility] [place] [address] Aortic valve stenosis, etiology of cardiac valve [...] please contact your inpatient physician through the [facility] Cash Management Clerk . Issues afterhours and on weekends will be handled by the Hospitalist staff on-call. * Attachments The following attachments cannot be sent through Care Everywhere. * Coronary Angiogram: Post-op (Turkish) * Right Heart Catheterization: Pulmonary Artery Catheterization: Post-op (Turkish) documented in this encounter Medications at Time [...] MD - 11/09/2022 11:20 AM EDT . [facility] Interventional Cardiology Adult Pre-Procedure H&P Update: Cardiac Catheterization Purnima Thacker [id number] Chief Complaint: BONILLA HPI: Purnima Thacker [...] Marrero MD Interventional Cardiology 11/09/22 11:43 AM [facility] Pager: [phone] documented in this encounter Plan of Treatment Upcoming Encounters Date Type Department Care Team (Late st Contact Info) Description 05/12/2024 9:00 AM EDT Appointment H[place]ology [place] [address] 05/12/2024 10:00 AM EDT Office Visit [place]ematology [place] [address] Markel Borjas MD [facility] [address] [place] [address] 03/01/2025 4:15 PM EDT Office Visit Dermatology at [place] [address] [place] [address] Marek Bonilla MD [address], [place] [address] documented as of this encounter Procedures Procedure Name Priority Date/Time Associated Diagnosis Comments CARDIAC CATHETERIZATION Routine 11/10/19 23 1:05 PM EDT Aortic valve stenosis, etiology of cardiac valve disease unspecified Cath Plmt Left Heart Cath & Arts W/Inj & Angio Img S&I ([id number]) 11/09/2022 11:51 AM EDT Aortic valve stenosis, etiology of cardiac valve disease unspecified EKG 12-LEAD Routine 11/09/2022 11:17 AM EDT Aortic valve stenosis, etiology of cardiac valve disease unspecified documented in this encounter Results * CARDIAC CATHETERIZATION (11/09/2022 1:05 PM EDT) Anatomical Region Laterality Modality Other Narrative 11/09/2022 2:01 PM EDT ?[facility] ? Cardiac Catheterization/Intervention Report ? Patient Name: Kirstie, Purnima M. ? Procedure Date: 11/09/2022 ? A #: [id number] ? Primary Physician: Nitesh Escobedo ? Case #: [id number] ? File Name: [id number] ? Catheterization Order Number: [id number] ? [facility] ? Final Report [place] [place] ? Patient Name: ? Purnima M. Kirstie ? ID#: ?[id number] ? : ?1955 ? Procedure Date: ? November 09, 2022 ? Case #: ? [id number] ? Room: ? 1 ? Case Physician: [...] (Bezet) 457 ms MUSE SYSTEM Calculated P Orosi 44 degrees MUSE SYSTEM Calculated R [place]rosi 33 degrees MUSE SYSTEM Calculated T [place]rosi 30 degrees MUSE SYSTEM INTERPRETATION Sinus rhythm Occasional Premature ventricular complexes Otherwise normal ECG When compared with ECG of 21-SEP-2016 12:26, Premature ventricular complexes are now Present OR interval has decreased Nonspecific T wave abnormality has replaced inverted T waves in Inferior leads I personally reviewed the tracing and edited the fellows interpretation Confirmed by fellow MD Anitha, Carissa ([id number]) on 11/09/2022 6:17:28 PM Confirmed by Elsa [...] MD) documented in this encounter Care Teams Silver Solderer Relationship Specialty Start Date End Date Deborah Quiroga, DEVELOPER ADVISOR PCP - General Family Medicine 03/24/16 02/04/23 documented as of this encounter
--- OUTSIDE RECORDS SUMMARY | 2024-04-18 14:37 | XMS_ITS | Encounter Summary ---
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 documented in this encounter Plan of Treatment Upcoming Encounters Date Type Department Care Team (Late st Contact Info) Description 05/12/2024 9:00 AM EDT Appointment [place] [address] 05/12/2024 10:00 AM EDT Office Visit [place]ematology [place] [address] Markel Borjas MD [facility] [address] HEMATOLOGY [place] [address] 03/01/2025 4:15 PM EDT Office Visit Dermatology at [place] [address] [facility] [place] [phone] Marek Bonilla MD [address], [place] [address] documented as of this encounter Visit Diagnoses Not on filedocumented in this encounter Care Teams Assisted Living Administrator Relationship Specialty Start Date End Date Magdalena Acosta MD [address] [place] [address] PCP - General Family Medicine 02/05/23 documented as of this encounter
--- OUTSIDE RECORDS SUMMARY | 2024-04-18 14:37 | XMS_ITS | Encounter Summary ---
Author Organization [facility] [place] [address] Care Team Providers Care Power Tool Repairer Name Role Phone Magdalena Acosta MD Primary Care Provider [phone] Encounter Details Date Type Department Care Team (Latest Contact Info) Description 03/18/2023 2:30 PM EDT Laboratory Appointment Lab [address] [phone] Positive FRANCISCO (antinuclear antibody) Social History Tobacco [...] AM EDT Appointment Hematology [place] [phone] 05/12/2024 10:00 AM EDT Office Visit Hematology [place] [phone] Markel Borjas MD [facility] HEMATOLOG[place] [address] 03/01/2025 4:15 PM EDT Office Visit Dermatology at [address] [address] Marek Bonilla MD [address] [facility], [place], [place] [id number] documented as of this encounter Procedures Procedure [...] PANEL Routine 03/18/2023 2:14 PM EDT Positive FARNCISCO (antinuclear antibody) documented in this encounter Results * (ABNORMAL) Differential, Automated (03/18/2023 2:14 PM EDT) Pathologist [facility] Neutrophil % 71.2 % [facility] Neutrophil Absolute 2.26 1.70 - 6.10 x10(3)/mc L [facility] Lymph % 18.2 % [facility] Lymphocytes Abs 0.6(L) 0.9 - 3.2 x10(3)/ L [facility] Monocyte % 9.7 % [facility] Monocyte Abs 0.3 0.3 - 0.9 x10(3)/[facility] Eos % 0.3 % [facility] Eosinophils Abs 0.0 0.0 - 0.4 x10(3)/[facility] Basophil % 0.6 % [facility] Baso Absolute 0.0 0.0 - 0.1 x10(3)/[facility] Immature Gran % 0.00 % [facility] Comment: Immature granulocytes(IG's)percentage and absolute count will include metamyelocytes, myelocytes, and promyelocytes. Blood smears from CBCs yielding IG's will be scanned manually for concordance. If this scan disagrees with the automated IG or if promyelocytes are noted, a manual differential will be performed. Immature Gran Absolute 0.00 0.00 - 0.04 x10(3)/[facility] Blood 03/18/2023 2:14 PM EDT 03/18/2023 2:24 PM EDT Narrative Resulting Agency Comment Spec In Lab Magdalena Peralta MD HEMATOLOGY ORDERABLE S [facility] [place] [address] * (ABNORMAL) Hemogram (03/18/2023 2:14 PM EDT) White Blood Cell 3.2(L) 4.0 - 9.5 x10(3)/[facility] Red Blood Cell 3.44(L) 4.00 - 5.21 x10(6)/[facility] Hemoglobin 11.1(L) 11.7 - 15.5 g/dL [facility] Hematocrit 32.9(L) 35.7 - 45.8 % [facility] Mean Cell Volume 95.6(H) 82.6 - 94.4 fL [facility] Mean Cell Hemoglobin 32.3(H) 27.1 - 32.0 pg [facility] Mean Cell Hemoglobin Concentration 33.7 31.7 - 35.0 g/dL [facility] Platelet 144(L) 145 - 357 x10(3)/mc L [facility] RDW Standard Deviation 42.6 37.0 - 46.0 fL [facility] RDW coefficient of variation 12.3 11.5 - 14.1 % [facility] Mean Platelet Volume 9.4 7.6 - 12.9 fL [facility] NRBC% auto 0.0 % [facility] NRBC Absolute 0.000 0.000 - 0.000 x10(3)/mc L [facility] Blood 03/18/2023 2:14 PM EDT 03/18/2023 2:24 PM EDT Narrative Resulting Agency Comment Spec In Lab Magdalena Peralta MD HEMATOLOGY ORDERABLE S Performing Organization Address City/[facility]/ZIP Co de Phone Number [facility] [place] [address] * (ABNORMAL) Sedimentation rate (03/18/2023 2:14 PM EDT) Sedimentation Rate Automated 68(H) 2 - 39 mm/hr [facility] Comment: Effective July 12, 2019 new capillary photometric technology has resulted in a change in reference ranges. It is recommended that each ESR result be reviewed with its own age appropriate reference range. Blood 03/18/2023 2:14 PM EDT 03/18/2023 2:24 PM EDT Narrative Resulting Agency Comment Spec In Lab Kia Viramontes DO HEMATOLOGY ORDERAB LES [facility] [place] [address] * CRP, acute inflammation (03/18/2023 2:14 PM EDT) C-Reactive Protein 3.0 <=4.9 mg/L [facility] Blood 03/18/2023 2:14 PM EDT 03/18/2023 2:24 PM EDT Narrative Resulting Agency Comment Spec In Lab Kiagiacomo Mossew DO CHEMISTRY ORDERABL ES Performing Organization Address [facility] Co de Phone Number [facility] [place] [address] * C3 Complement (03/18/2023 2:14 PM EDT) Complement C3 142 90 - 180 mg/dL [facility] Blood 03/18/2023 2:14 PM EDT 03/18/2023 2:24 PM EDT Narrative Resulting Agency Comment Spec In Lab Kia Mossew DO CHEMISTRY ORDERABL ES Performing Organization Address [facility] de Phone Number [facility] [place] [address] * C4 Complement (03/18/2023 2:14 PM EDT) Complement C4 30 10 - 40 mg/dL [facility] Blood 03/18/2023 2:14 PM EDT 03/18/2023 2:24 PM EDT Narrative Resulting Agency Comment Spec In Lab Kia Mossew DO CHEMISTRY ORDERABL ES Performing Organization Address [facility] de Phone Number [facility] [place] [address] * CK (03/18/2023 2:14 PM EDT) Creatine Kinase 38 0 - 160 unit/L [facility] Blood 03/18/2023 2:14 PM EDT 03/18/2023 2:24 PM EDT Narrative Resulting Agency Comment Spec In Lab Kia D Wander DO CHEMISTRY ORDERABL ES Performing Organization Address [facility] Co de Phone Number [facility] [place] [address] * DNA Antibody (Double-Stranded) (03/18/2023 2:14 PM EDT) dsDNA Ab <0.6 <=15.0 IU/mL [facility] Comment: <10 negative 10-15 equivocal >15 positive This dsDNA antibody result was generated using a fluoroenzyme immunoassay on the Szl.it 250 analyzer. This quantitative test is designed to detect IgG antibodies directed against double stranded DNA in human serum. The presence of antibodies that recognize dsDNA is a highly specific marker for systemic lupus erythematosus. Please note that as of 05/26/2022 that this testing is performed by the Special Chemistry Laboratory at [facility]. This change in testing location is associated with a change is testing method and reference intervals. Please review the results of this test in association with the posted reference intervals. Blood 03/18/2023 2:14 PM EDT 03/19/2023 7:19 AM EDT Narrative Resulting Agency Comment Spec In Lab Kia Viramontes DO LAB SEND OUT ORDER JODIE [facility] [place] [address] * (ABNORMAL) FRANCISCO Ab by IFA (03/18/2023 2:14 PM EDT) [facility] FRANCISCO Ab Screen Test ? Result ?Flag ??Unit ??RefValue Antinuclear Ab, HEp-2 ?Positive 1:2560 ??@ ?<1:80 (Negative) ??Substrate, S ? ADDITIONAL INFORMATION --------- ?Method: Immunofluorescence using HEp-2 cellular substrate. ??FRANCISCO Titer: ? 1:2560 ??FRANCISCO Pattern: ? Speckled ?Test Performed by: ?[facility] ?[address] [place] [address] ?Agronomy Supervisor: Raymond Chaudhry M.D. Ph.D.; CLIA# [id number] (A) [facility] Blood 03/18/2023 2:14 PM EDT 03/18/2023 3:02 PM EDT Narrative Resulting Agency Comment Spec In Lab Kia Viramontes DO CHEMISTRY ORDERABL ES [facility] [place] [address] * Comprehensive metabolic panel (non-fasting) (03/18/2023 2:14 PM EDT) Glucose 93 65 - 199 mg/dL [facility] Comment:Diabetes: >=200 mg/d L plus symptoms Blood Urea Nitrogen 18 8 - 18 mg/dL [facility] Creatinine 0.99 0.70 - 1.20 mg/dL [facility] Sodium 141 135 - 145 mmol/L [facility] Potassium 4.5 3.5 - 5.0 mmol/L [facility] Comment: Please note: ??Patients with WBC >100,000 may have falsely elevated Potassium levels. ??For accurate Potassium quantification in these patients send serum separator tube (gold top) for subsequent determinations. ??Contact the Clinical Chemistry Laboratory if there are any questions. Chloride 106 98 - 107 mmol/L [facility] Carbon Dioxide 24 22 - 31 mmol/L [facility] Anion Gap 11 5 - 15 mmol/L [facility] Calcium 10.0 8.5 - 10.5 mg/dL [facility] Protein, Total 7.3 6.1 - 8.0 g/dL [facility] Albumin 4.3 3.2 - 5.2 g/dL [facility] Aspartate Aminotransferase 26 0 - 30 unit/L [facility] Alanine Aminotransferase 11 0 - 30 unit/L [facility] Alkaline Phosphatase 91 35 - 105 unit/L [facility] Bilirubin, Total 0.4 0.2 - 1.3 mg/dL [facility] Est Glomerular Filtration Rate 62 >=60 mL/min/1. 73 m?? [facility] Comment: This patient's estimated GFR [...] Lab Kia Viramontes DO CHEMISTRY ORDERABL ES [facility] [place] [address] documented in this encounter Visit Diagnoses Diagnosis Positive FRANCISCO (antinuclear antibody) Other and unspecified nonspecific immunological findings documented in this encounter Care Teams Power Tool Repairer Relationship Specialty Start Date End Date Magdalena Acosta MD [address] [place] [address] PCP - General Family Medicine 02/05/23 documented as of this encounter
--- OUTSIDE RECORDS SUMMARY | 2024-04-18 14:37 | XMS_ITS | Encounter Summary ---
Author Organization [facility] Address [facility] [place] [address] Care Team Providers Care Risk Assessment Consultant Name Role Phone Magdalena Acosta MD Primary Care Provider [phone] Reason for Visit * Consultation (Routine) - Closed Specialty Diagnoses / Procedures Referred By Contac t Referred To Contact Rheumatology Diagnoses Weakness Kyra Haas MD [facility] [address] [place] [address] [facility] Rheumatology [address] [place] [phone] Referral ID Status Reason Start Date Expiration Date V isits Requested Visits Authorized [id number] Closed Consult, Test & Treat PCP Updated and/or Approved 02/25/2023 02/25/2024 6 6 Encounter Details Date Type Department Care Team (Late st Contact Info) Description 03/18/2023 1:00 PM EDT Office [place] [address] Kia Viramontes DO [facility] [place] [address] Magdalena Peralta MD [facility] [place] [address] Positive FRNACISCO (antinuclear antibody) Social History Tobacco Use Types [...] speckled VIC negative Myositis panel with SENIOR SALES OPERATIONS MANAGER ab 149.1 (positive) Anti U1RNP IgG 119 [...] a chair without assistance of upper extremities. Caretaker strength 3+/5 bilaterally; otherwise large muscle groups [...] to risk of retinal toxicity with terminal manager Plaquenil use, which she already does. Recommendations: #mixed connective tissue disease Start hydroxychloroquine 200 mg qd Labs today: repeat FRANCISCO, dsDNA, complements, CBC, CMP, CK, ESR, CRP Follow up 1 month The patient was seen and discussed with Dr. Wander Peralta MD Rheumatology Fellow Pager: [phone] CC: Kyra Haas * Kia Viramontes DO [...] AM EDT Appointment Hematology [place] [address] 05/12/2024 10:00 AM EDT Office Visit Hematology [place] [phone] Markel Borjas MD [facility] [address] [place] [address] 03/01/2025 4:15 PM EDT Office Visit Dermatology at [place] [address] [place] [address] Marek Bonilla MD [address] [facility], [place] [address] documented as of this encounter Results * Comprehensive metabolic panel (non-fasting) (03/18/2023 2:14 PM EDT) [facility] Signature Glucose 93 65 - 199 mg/dL [facility] Comment:Diabetes: >=200 mg/d L plus symptoms Blood Urea Nitrogen 18 8 - 18 mg/dL [facility] Creatinine 0.99 0.70 - 1.20 mg/dL [facility] Sodium 141 135 - 145 mmol/L [facility] Potassium 4.5 3.5 - 5.0 mmol/L [facility] Comment: Please note: ??Patients with WBC >100,000 may have falsely elevated Potassium levels. ??For accurate Potassium quantification in these patients send serum separator tube (gold top) for subsequent determinations. ??Contact the Clinical Chemistry Laboratory if there are any questions. Chloride 106 98 - 107 mmol/L [facility] Carbon Dioxide 24 22 - 31 mmol/L [facility] Anion Gap 11 5 - 15 mmol/L [facility] Calcium 10.0 8.5 - 10.5 mg/dL [facility] Protein, Total 7.3 6.1 - 8.0 g/dL [facility] Albumin 4.3 3.2 - 5.2 g/dL [facility] Aspartate Aminotransferase 26 0 - 30 unit/L [facility] Alanine Aminotransferase 11 0 - 30 unit/L [facility] Alkaline Phosphatase 91 35 - 105 unit/L [facility] Bilirubin, Total 0.4 0.2 - 1.3 mg/dL [facility] Est Glomerular Filtration Rate 62 >=60 mL/min/1. 73 m?? [facility] [...] DO CHEMISTRY ORDERABL ES Performing Organization Address City/State/[facility] Co de Phone Number [facility] [place] [address] * (ABNORMAL) FRANCISCO Ab by IFA (03/18/2023 2:14 PM EDT) FRANCISCO Ab Screen Test ? Result ?Flag ??Unit ??RefValue Antinuclear Ab, HEp-2 ?Positive 1:2560 ??@ ?<1:80 (Negative) ??Substrate, S ? ADDITIONAL INFORMATION --------- ?Method: Immunofluorescence using HEp-2 cellular substrate. ??FRANCISCO Titer: ? 1:2560 ??FRANCISCO Pattern: ? Speckled ?Test Performed by: ?[facility] ?[address] [id number] ?Telegraph Mechanic: Raymond Chaudhry M.D. Ph.D.; CLIA# [id number] (A) [facility] Blood 03/18/2023 2:14 PM EDT 03/18/2023 3:02 PM EDT Narrative Resulting Agency Comment Spec In Lab Kia Viramontes DO CHEMISTRY ORDERABL ES [facility] [place] [address] * DNA Antibody (Double-Stranded) (03/18/2023 2:14 PM EDT) dsDNA Ab <0.6 <=15.0 IU/mL [facility] Comment: <10 negative 10-15 equivocal >15 positive This dsDNA antibody result was generated using a fluoroenzyme immunoassay on the Swarm 250 analyzer. This quantitative test is designed to detect IgG antibodies directed against double stranded DNA in human serum. The presence of antibodies that recognize dsDNA is a highly specific marker for systemic lupus erythematosus. Please note that as of 05/26/2022 that this testing is performed by the Special Chemistry Laboratory at [facility]. This change in testing location is associated with a change is testing method and reference intervals. Please review the results of this test in association with the posted reference intervals. Blood 03/18/2023 2:14 PM EDT 03/19/2023 7:19 AM EDT Narrative Resulting Agency Comment Spec In Lab Kia Viramontes DO LAB SEND OUT ORDER JODIE Performing Organization Address [facility] Co de Phone Number [facility] [place] [address] * CK (03/18/2023 2:14 PM EDT) Creatine Kinase 38 0 - 160 unit/L [facility] Blood 03/18/2023 2:14 PM EDT 03/18/2023 2:24 PM EDT Narrative Resulting Agency Comment Spec In Lab Kia Viramontes DO CHEMISTRY ORDERABL ES Performing Organization Address [facility] Co de Phone Number [facility] [place] [address] * C4 Complement (03/18/2023 2:14 PM EDT) Complement C4 30 10 - 40 mg/dL [facility] Blood 03/18/2023 2:14 PM EDT 03/18/2023 2:24 PM EDT Narrative Resulting Agency Comment Spec In Lab Kia D Wander DO CHEMISTRY ORDERABL ES Performing Organization Address [facility] Co de Phone Number [facility] [place] [address] * C3 Complement (03/18/2023 2:14 PM EDT) Complement C3 142 90 - 180 mg/dL [facility] Blood 03/18/2023 2:14 PM EDT 03/18/2023 2:24 PM EDT Narrative Resulting Agency Comment Spec In Lab Kia Viramontes DO CHEMISTRY ORDERABL ES Performing Organization Address [facility] Co de Phone Number [facility] [place] [address] * CRP, acute inflammation (03/18/2023 2:14 PM EDT) C-Reactive Protein 3.0 <=4.9 mg/L [facility] Blood 03/18/2023 2:14 PM EDT 03/18/2023 2:24 PM EDT Narrative Resulting Agency Comment Spec In Lab Kia Viramontes DO CHEMISTRY ORDERABL ES Performing Organization Address [facility] Co de Phone Number [facility] [place] [address] * (ABNORMAL) Sedimentation rate (03/18/2023 2:14 PM EDT) Sedimentation Rate Automated 68(H) 2 - 39 mm/hr [facility] Comment: Effective July 12, 2019 new capillary photometric technology has resulted in a change in reference ranges. It is recommended that each ESR result be reviewed with its own age appropriate reference range. Blood 03/18/2023 2:14 PM EDT 03/18/2023 2:24 PM EDT Narrative Resulting Agency Comment Spec In Lab Kia Viramontes DO HEMATOLOGY ORDERAB LES Performing Organization Address [facility] Co de Phone Number [facility] [place] [address] documented in this encounter Visit Diagnoses Diagnosis Positive FRANCISCO (antinuclear antibody) Other and unspecified nonspecific immunological findings documented in this encounter Care Teams Risk Assessment Consultant Relationship Specialty Start Date End Date Magdalena Acosta MD [address] [place] [address] PCP - General Family Medicine 02/05/23 documented as of this encounter
--- OUTSIDE RECORDS SUMMARY | 2024-04-18 14:37 | XMS_ITS | Encounter Summary ---
Author Organization [facility] [place] [address] Care Team Providers Care Sales Order Coordinator Name Role Phone Magdalena Acosta MD Primary Care Provider [phone] Encounter Details Date Type Department Care Team [...] AM EDT Appointment Hematology [place] [address] 05/12/2024 10:00 AM EDT Office Visit Hematology [place] [address] Markel Borjas MD [facility] [address] [place] [address] 03/01/2025 4:15 PM EDT Office Visit Dermatology at [place] [address] [facility] [place] [phone] Marek Bonilla MD [address] [facility] [place] [address] documented as of this encounter Visit Diagnoses Not on filedocumented in this encounter Care Teams Sales Order Coordinator Relationship Specialty Start Date End Date Magdalena Acosta MD [address] [place] [address] PCP - General Family Medicine 02/05/23 documented as of this encounter
--- OUTSIDE RECORDS SUMMARY | 2024-04-18 14:37 | XMS_ITS | Encounter Summary ---
[place] [address] Care Team Providers Care Shaker Washer Name Role Phone Magdalena Acosta MD Primary Care Provider [phone] Reason for Visit * Reason Comments Suture / Staple Removal Encounter Details Date Type Department Care Team (Late st Contact Info) Description 02/16/2023 10:00 AM EDT Office Visit Dermatology at [place] [address] [facility] [place] [phone] Marek Bonilla MD [address] [facility] [address] DERMATOLOGY [place], [place] [phone] Visit for suture removal Social History Tobacco [...] AM EDT Appointment Hematology [place] [address] 05/12/2024 10:00 AM EDT Office Visit [place] [address] Markel Borjas MD [facility] [address] HEMATOLOGY [place] [address] 03/01/2025 4:15 PM EDT Office Visit Dermatology at [place] [address] [facility] [place] [address] Marek Bonilla MD [address] [facility] [address] [place] [address] documented as of this encounter Visit Diagnoses Diagnosis Visit for suture removal Encounter for removal of sutures documented in this encounter Care Teams Shaker Washer Relationship Specialty Start Date End Date Magdalena Acosta MD [address] [place] [address] PCP - General Family Medicine 02/05/23 documented as of this encounter
--- OUTSIDE RECORDS SUMMARY | 2024-04-18 14:38 | XMS_ITS | Encounter Summary ---
Author Organization [facility] [place] [address] Care Team Providers Care Analytics Developer Name Role Phone Ashley Quirogan Cornelius ANURAG Primary Care Provider [phone] Reason for Referral * Consultation (Routine) - Specialty Diagnoses / Procedures Referred By Contact Referred To Contact Cardiac Rehabilitation Diagnoses S/P AVR Alirio Esparza MD [facility] [place] [address] Cardiac Rehab, [address] [place] [address] Referral ID Status Reason Start Date Expiration Date V isits Requested Visits Authorized [id number] Consult, Test & Treat 09/25/2016 03/24/2017 36 36 Reason for Visit * Auth/Cert Specialty Diagnoses / Procedures Referred By Contkrystle t Referred To Contact Diagnoses Aortic stenosis Procedures PRO REPLACE AORT VALV, PROSTH VALV @REPLACE AORTIC VALVE, OPEN, W\CPB, W\PROSTHETIC VALVE (WRVU 41.32) Referral ID Status Reason Start Date Expiration Date Visits Re quested Visits Authorized [id number] 1 1 Encounter Details Date Type Department Care Team (Latest Contact Info) Description 09/21/2016 6:08 AM EST - 09/25/2016 4:33 PM EST Hospital Encounter Intermediate [place] [id number] Alirio Esparza MD Aortic valve stenosis, unspecified [...] Patient Age: 61 y.o. Birthdate: 1955 Language: Malaysian Race: White Ethnicity: Not nor Admit Date: 09/21/2016 Discharge Date: 09/25/2016 Attending Physician: Alirio Esparza MD Follow-up Recommendations for Providers: Please continue routine management of cardiovascular risk factors including blood pressure, lipids,glucose, etc. Please note any changes to medications. Patient to follow-up with PCP, Deborah Quiroga APRN, in 1-2 weeks. Patient to follow-up with Municipal [facility] Magistrate, Dr. Antelmo Burrell, in two weeks. Patient to follow-up with Cardiac Surgery, Dr. Alirio Esparza, to be scheduled for before 10/19/2016, with CXR, EKG, and Echo. Inpatient Provider Contact Information: [facility] Section of Cardiac Surgery [facility] [address] FAX [phone] Discharge Diagnoses (Hospital Problems) Primary Diagnoses: Secondary [...] 41.32) performed by Alirio Esparza MD at [facility] MAIN OR ??? Pro aortoplas for supravalv sten N/A 09/21/2016 @AORTOPLASTY FOR SUPRAVALVULAR STENOSIS (WRVU 29.33) performed by Alirio Esparza MD at [facility] MAIN OR Prior To Admission Medications Prescriptions [...] Hospital Course: Purnima Thacker was admitted to [facility] on 09/21/2016 via the Same [...] Alirio Esparza and/or the Cardiac Surgery Physician Revenue Accountant Team may be reached at . Antibiotic [...] to your dentist. Please refer to the [place] Heart Association [...] Dr. Alirio Jones. You may use a [place] Track or treadmill but avoid any pulling [...] friends, go to a movie, go to [employer]aritan, etc. Heavy activities: No hunting, skiing, jogging, [...] low fat, low cholesterol, [place] Heart Association Diet. Driving: No driving until [...] AM Markel Borjas MD [facility] [phone] Future Orders Complete By Expires Echocardiogram Transthoracic([place]eb) [BGF816 Custom] 10/18/2016 (Approximate) 09/18/2017 Process Instructions: If the Echocardiogram is to be PERFORMED in a location other than [place]--STOP and order [id number], Echocardiogram South/External. Scheduling Instructions: Questions: Is a Bubble Study requested?: No Does the patient have Congenital Heart Disease?: No Does patient require sedation?: None GA rationale: Should this service be billed to the research sponsor?: EKG 12 Lead [EKG1 Custom] 10/18/2016 (Approximate) 09/25/2017 Process Instructions: Scheduling Instructions: Questions: Which location will this be performed?: [place] Is a rhythm strip needed?: No If EKG Reason is Pre-op Evaluation, indicate diagnosis for surgery.: Should this service be billed to the research sponsor?: XR Chest PA & Lateral (Generic) [[id number] Custom] 10/18/2016 (Approximate) 09/25/2017 Process Instructions: Scheduling Instructions: Questions: Where will study be performed?: [facility]- Radiology Portable exam?: No Reason for exam and clinical history: s/p AVReplacement, patch annuloplasty 1 month f/u Other pertinent information: Stat read required?: Date of injury if applicable: Requested Time: Referral to Cardiac Rehab [[id number] Custom] As directed Process Instructions: If no progress note charted, please enter Clinical details in comments. Scheduling Instructions: Questions: My question or request is: s/p AVR. Cardiac rehab at [facility] Referral to Home Health - at DISCHARGE [EHO1416 CPT(R)] As directed Process Instructions: Scheduling Instructions: Comments: DOCUMENTATION FOR VNA SERVICES (INCLUDING THOSE PATIENTS WITH MEDICARE COVERAGE REQUIRING HOME VNA SERVICES AND/OR HOSPICE SERVICES) PATIENT'S LOCATION: Purnima Magalie Kirstie [address] [place] [phone] (home) No relevant phone numbers on file. Mechanical Systems Engineer's Name: self In discussion with the attending physician, it is certified that this patient is under their care and that they, or a Nurse Practitioner, or Physician Revenue Accountant who is working directly with them, hada [...] for services as follows: HOME HEALTH AGENCY: [facility] PHONE: [phone] FAX: [phone] RN orders: Cardiopulmonary assessment, incisional assessment, assess [...] issues please call the Cardiac SurgeryOffice at [phone] FOR MEDICARE ONLY: In discussion with the [...] AFTER 09/30/16 Signed: Crispin Aranda PA-C 09/25/2016 [facility] Section of Cardiac Surgery [facility] [address] FAX [phone] Date: 09/25/2016 CC: ANURAG Alford Caryn E, APRN [address] [place] [address] documented in this encounter Discharge Instructions * [...] Alirio Esparza and/or the Cardiac Surgery Physician Revenue Accountant Team may be reached at . Antibiotic [...] to your dentist. Please refer to the [place] Heart Association [...] Dr. Alirio Jones. You may use a [place] Track or treadmill but avoid any pulling [...] friends, go to a movie, go to samaritan, etc. Heavy activities: No hunting, skiing, jogging, [...] low fat, low cholesterol, [place] Heart Association Diet. Driving: No driving until [...] PM EST Cardiac Surgery Progress Note: ID: [id number] S/p AVR, patch aortoplasty POD#2. PMH of [...] Gas) No results found for: PHART, PO2ART, YGB7GOB Assessment/Plan: TPW out this am. (+) BM. [...] Signed: Crispin Aranda PA-C 09/24/2016 Team pager: [phone]; [phone] after 5pm [facility] Section of Cardiac Surgery * Leonor Henson, DOCUMENT SPECIALIST - 09/23/2016 10:48 AM EST Cardiac Surgery Progress Note: ID: [id number] s/p AVR, patch aortoplasty POD#2. PMH of [...] Gas) No results found for: PHART, PO2ART, PYX2JIV Assessment/Plan: s/p AVR, patch aortoplasty POD#2. PMH of Neutropenia, HLD, HTN, Depression, obesity, . Transferred from [facility] yesterday and doing well. Pathway. Will [...] Surgeon on rounds. Signed: Leonor Henson APRN [facility] Section of Cardiac Surgery Date: 09/23/2016 * Nico Palacios PA - 09/22/2016 9:56 AM EST Cardiac Surgery Progress Note: ID: [id number] s/p AVR, patch aortoplasty POD#1. PMH of [...] NT, ND, soft. Ext: Moves all extremities. [place], well perfused. Incisions: C/D/I Tubes/Lines/Drains: PIV, richi, [...] Attending Surgeon on rounds. Signed: EKATERINA KIM [facility] Section of Cardiac Surgery Date: [...] left pleural effusion. T/L/D Al ETT CVL [place] CT Pacing wires ASSESSMENT, MANAGEMENT, and DECISION [...] with outpatient services Lalitha Cohen SPTA Pager: [phone] Inpatient Physical Therapy Patient status, treatment interventions, and goals discussed with student. I am in agreement with all details and associated flowsheet rows as documented and was present for all aspects of the patient treatment session. Nerykatrina Jaramillo, [facility] Pager [phone] Problem: Acute Rehab Services Goal & Intervention Plan Goal: Bed Mobility Goal Stand Alone Therapy Goal Outcome: Ongoing (Interventions Implemented as Appropriate) 09/22/16 16109/25/16 09 Bed Mobility Goal Bed Mobility Goal, Time to Achieve 4 days -- Bed Mobility Goal, Activity Type scoot/bridge;supine to sit/sit to supine -- Bed Mobility Goal, [place] Level independent -- Bed Mobility Goal, Additional [...] Achieve 4 days -- Gait Training Goal, [place] Level independent -- Gait Training Goal, Distance [...] Lalitha Cohen [facility] Pager: [phone] Inpatient Physical Therapy Patient status, treatment interventions, and goals discussed with student. I am in agreement with all details and associated flowsheet rows as documented and was present for all aspects of the patient treatment session. Nery Jaramillo, [facility] Pager [phone] Problem: Acute Rehab Services Goal & Intervention Plan Goal: Bed Mobility Goal Stand Alone Therapy Goal Outcome: Ongoing (Interventions Implemented as Appropriate) 09/22/16 16109/23/16 1412 Bed Mobility Goal Bed Mobility Goal, Time to Achieve 4 days -- Bed Mobility Goal, Activity Type scoot/bridge;supine to sit/sit to supine -- Bed Mobility Goal, [place] Level independent -- Bed Mobility Goal, Additional [...] Achieve 4 days -- Gait Training Goal, [place] Level independent -- Gait Training Goal, Distance [...] days -- Transfer Training Goal, Activity Type slc-du-jizwp/mataw-dl-sim;sjf-as-faobo/kamjc-ta-jsb -- Transfer Train Goal, [place] Level independent -- Transfer Training Goal, Additional Goal abides sternal precautions -- Transfer Training Goal, Outcome -- goal met * Consult Note - Jana Crenshaw RN - 09/23/2016 9:41 AM EST [facility] Purnima Thacker was [...] Another Service: (cardiac rehab) NICOLE HERNANDEZ, PT Pager:[phone] Inpatient Physical Therapy Problem: Acute Rehab Services Goal & Intervention Plan Goal: Bed Mobility Goal Stand Alone Therapy Goal Outcome: Ongoing (Interventions Implemented as Appropriate) 09/22/16 1611 Bed Mobility Goal Bed Mobility Goal, Time to Achieve 4 days Bed Mobility Goal, Activity Type scoot/bridge;supine to sit/sit to supine Bed Mobility Goal, [place] Level independent Bed Mobility Goal, Additional Goal able to abide sternal precautions during transfers Goal: Gait Training Goal Stand Alone Therapy Goal Outcome: Ongoing (Interventions Implemented as Appropriate) 09/22/16 1611 Gait Training Goal Gait Training Goal, Date Established 09/22/16 Gait Training Goal, Time to Achieve 4 days Gait Training Goal, [place] Level independent Gait Training Goal, Distance to Achieve ascend and descends 2 steps independently Goal: Goal Transfer Training Stand Alone Therapy Goal Outcome: Ongoing (Interventions Implemented as Appropriate) 09/22/16 1611 Goal Transfer Training Transfer Training Goal, Time to Achieve 4 days Transfer Training Goal, Activity Type hvo-gi-tjcbh/asiwb-le-bof;brd-bx-xxffz/bulpq-yz-kpl Transfer Train Goal, [place] Level independent Transfer Training Goal, Additional Goal [...] of completing AD's at home, chooses her repfkv-qr-ncj, Martha Thacker (home) for her [facility], 2nd choice in friend, Nitesh Leroy [place], [place] Current Coping/Education/Information Needs: patient sitting up [...] who live close by, [place], and her aqfwbi-xc-qrk Martha Thacker who she has chosen to be her DPOAH. Also has a friend Nitesh Leroy who lives in [place], [place], also her DPOAH choice. Behavioral Health History: none on file in [facility] Substance Use/Abuse: none on file in [facility] Other Pertinent/Service Specific Information: none Health/Prescription Coverage: Primary Insurance: [employer] Secondary Insurance: none Prescription Coverage: yes, per patient no issues Preferred Pharmacy: ?? Other: none Primary Care Provider: Deborah Quiroga, DOCUMENT SPECIALIST [phone] Patient/Caregiver Goals of Treatment: per medical team recommendations at discharge for CT surgery Potential Needs for Transition of Care: Rehab/SNF: TBD Home Health: TBD DME: no Dialysis: no Community Resources: non3 Transportation: ride home with a friend Other: none Anticipated Barriers to Discharge/Special Considerations: none anticipated at this time Plan: patient will need VNA services at discharge. The patient/sales and marketing representative has been provided a list of Home Health Agencies/DME vendors which servetheir preferred geographic area. A letter describing our affiliations was reviewed with them and they were educated about their right to choose where referrals are placed. Patient requests referral to: [facility]. PHONE: [phone] FAX: [phone] Expected date of discharge: Fri/Sat? CM called VNA to confirm referral, talked with VALDO Bunn/intake who stated she was familiar w/patient & would monitor her progress through curaspan. Referral routed to the [employer] for matching with agency/vendor and to provide any required information. A member of the Care Management team will continue to monitor progress, follow for continuity of care and assist with transition of care planning. Amanda Moreno RN Pager: [phone] * Op Note - Alirio Esparza MD - 09/21/2016 12:53 PM EST 09/23/2016 Purnima Thacker 1955 [id number] Preoperative Diagnosis: Symptomatic aortic stenosis Postoperative Diagnosis: Symptomatic aortic stenosis Procedure: Aortic valve replacement: Bovine Pericardial 25 mm Surgeon: Alirio Esparza M.D. Revenue Accountant: Philip BALL Anesthesia: General endotracheal anesthesia Drains: [...] Operative Note Patient Name: Purnima Thacker : [id number] MR#: [id number] Case Date: 09/21/2016 Surgeon: Surgeon(s) and Role: * Alirio Esparza MD - Primary * Nico Palacios PA - Physician Revenue Accountant Preoperative diagnosis: Postoperative diagnosis: Procedure(s) (LRB): @REPLACE [...] AM EDT Appointment [place] [address] 05/12/2024 10:00 AM EDT Office Visit [place] [address] Markel Borjas MD [facility] [address] [place] [address] 03/01/2025 4:15 PM EDT Office Visit Dermatology at [address] [place] [address] Marek Bonilla MD [address], [place] [address] Scheduled Orders Name Type Priority Associated Diagnoses [...] IMPLANTABLE DEVICES SCAN 09/26/2016 12:00 AM EST ALUMINUM SHEET CUTTER SCAN 09/26/2016 12:00 AM EST POTASSIUM Routine [...] SCAN EXT O RDR/RSLT * SCAN DOC: ALUMINUM SHEET CUTTER (09/26/2016 12:00 AM EST) Anatomical Region Laterality Modality Other Narrative 09/26/2016 12:00 AM EST Ordered by an unspecified provider. Scanning Provider MEDIA MGR SCAN EXT O RDR/RSLT * Potassium (09/25/2016 4:32 AM EST) Pathologist [facility] Potassium 4.4 3.5 - 5.0 mmol/L [place] [...] CHEMISTRY ORDERABLE S [facility] [place] [address] * (ABNORMAL) Differential, Automated (09/24/2016 9:56 AM EST) Neutrophil % 76.8 % [facility] Neutrophil Absolute 7.79(H) 1.70 - 6.10 x10(3)/mc L [facility] Lymph % 11.1 % [facility] Lymphocytes Abs 1.1 0.9 - 3.2 x10(3)/mc L [facility] Monocyte % 8.5 % [facility] Monocyte Abs 0.9 0.3 - 0.9 x10(3)/mc L [facility] Eos % 0.5 % [facility] Eosinophils Abs 0.0 0.0 - 0.4 x10(3)/[facility] LABOR[facility] Basophil % 0.2 % [facility] Baso Absolute 0.0 0.0 - 0.1 x10(3)/[facility] LABORATORY Immature Gran % 2.90 % [facility] Comment: Immature granulocytes(IG's)percentage and absolute count will include metamyelocytes, myelocytes, and promyelocytes. Blood smears from CBCs yielding IG's will be scanned manually for concordance. If this scan disagrees with the automated IG or if promyelocytes are noted, a manual differential will be performed. Immature Gran Absolute 0.29(H) 0.00 - 0.04 x10(3)/[facility] LAB[facility] Blood specimen (specimen) 09/24/2016 9:56 AM EST 09/24/2016 10:04 AM EST Narrative Resulting Agency Comment Spec In Lab Alirio Esparza MD HEMATOLOGY ORDERABL ES [facility] [place] [address] * (ABNORMAL) Hemogram (09/24/2016 9:56 AM EST) White Blood Cell 10.1(H) 4.0 - 9.5 x10(3)/[facility] LABORAT[facility] Red Blood Cell 2.87(L) 4.00 - 5.21 x10(6)/[facility] LAB[facility] Hemoglobin 9.4(L) 11.7 - [...] [facility] NRBC% auto 1.1 % [facility] NRBC Absolute 0.110(H) 0.000 - 0.000 x10(3)/mc L [facility] Blood specimen (specimen) 09/24/2016 9:56 AM EST 09/24/2016 10:04 AM EST Narrative Resulting Agency Comment Spec In Lab Alirio Esparza MD HEMATOLOGY ORDERABL ES [facility] [place] [id number] * (ABNORMAL) Basic Metabolic Panel (non-fasting) (09/24/2016 [...] the following links into your internet browser. [email or web address] [email or web address] Blood specimen (specimen) 09/24/2016 9:56 AM EST 09/24/2016 10:04 AM EST Narrative Resulting Agency Comment Spec In Lab Alirio Esparza MD CHEMISTRY ORDERABLE S [facility] [place] [address] * XR Chest PA & Lateral (Generic) [...] CHEMISTRY ORDERABLE S [facility] [place] [address] * POCT Glucose (09/22/2016 8:17 AM EST) Glucose, POC 131 65 - 199 mg/dL [facility] Comment: Supplemental ranges: <140 mg/dL before meals <180 mg/dL all other times of the day Blood specimen (specimen) 09/22/2016 8:17 AM EST 09/22/2016 8:17 AM EST Narrative Authorizing Provider Result Slade Esparza MD POINT OF CARE TEST ORDERABLES [facility] [place] [address] * POCT Glucose (09/22/2016 4:01 AM EST) [facility] Glucose, POC 135 65 - 199 mg/dL [facility] Comment: Supplemental ranges: <140 mg/dL before meals <180 mg/dL all other times of the day Blood specimen (specimen) 09/22/2016 4:01 AM EST 09/22/2016 4:01 AM EST Alirio Esparza MD POINT OF CARE TEST ORDERABLES Performing Organization Address [facility] Co de Phone Number [facility] [place] [address] * Scan, Peripheral Blood (09/22/2016 4:00 AM EST) [facility] Plat estimate Normal [facility] RBC Morphology Abnormal [facility] Macrocyte 1-5 /HPF [facility] Plat, Giant Less than 1 /HPF [facility] Blood specimen (specimen) 09/22/2016 4:00 AM EST 09/22/2016 4:34 AM EST Narrative Resulting Agency Comment Spec In Lab Alirio Esparza MD HEMATOLOGY ORDERABL ES Performing Organization Address [facility] Co de Phone Number [facility] [place] [address] * Electrolytes panel (09/22/2016 4:00 AM EST) [facility] Sodium 145 135 - 145 mmol/L [place] [...] CHEMISTRY ORDERABLE S [facility] [place] [address] * (ABNORMAL) Differential, Automated (09/22/2016 4:00 AM EST) Neutrophil % 70.9 % [facility] Neutrophil Absolute 5.33 1.70 - 6.10 x10(3)/ L [facility] Lymph % 9.1 % [facility] Lymphocytes Abs 0.7(L) 0.9 - 3.2 x10(3)/[facility] LABORAT[facility] Monocyte % 18.0 % [facility] Monocyte Abs 1.4(H) 0.3 - 0.9 x10(3)/ L [facility] Eos % 0.0 % [facility] Eosinophils Abs 0.0 0.0 - 0.4 x10(3)/[facility] LABOR[facility] Basophil % 0.1 % [facility] Baso Absolute 0.0 0.0 - 0.1 x10(3)/ L [facility] Immature Gran % 1.90 % [facility] Comment: Immature granulocytes(IG's)percentage and absolute count will include metamyelocytes, myelocytes, and promyelocytes. Blood smears from CBCs yielding IG's will be scanned manually for concordance. If this scan disagrees with the automated IG or if promyelocytes are noted, a manual differential will be performed. Immature Gran Absolute 0.14(H) 0.00 - 0.04 x10(3)/ L [facility] Blood specimen (specimen) 09/22/2016 4:00 AM EST 09/22/2016 4:34 AM EST Narrative Resulting Agency Comment Spec In Lab Alirio Esparza MD HEMATOLOGY ORDERABL ES Performing Organization Address City/[facility]/ZIP Co de Phone Number [facility] [place] [address] * (ABNORMAL) Hemogram (09/22/2016 4:00 AM EST) White Blood Cell 7.5 4.0 - 9.5 x10(3)/mc L [facility] Red Blood Cell 2.93(L) 4.00 - 5.21 x10(6)/mc L [facility] Hemoglobin 9.2(L) 11.7 - [...] [facility] NRBC% auto 0.3 % [facility] NRBC Absolute 0.020(H) 0.000 - 0.000 x10(3)/mc L [facility] Blood specimen (specimen) 09/22/2016 4:00 AM EST 09/22/2016 4:34 AM EST Narrative Resulting Agency Comment Spec In Lab Alirio Esparza MD HEMATOLOGY ORDERABL ES [facility] [place] [address] * (ABNORMAL) Cardiac Enzymes (09/22/2016 4:00 AM EST) Pathologist [facility] Troponin-T 0.13(H) <=0.03 ng/mL [facility] [...] consensus document of the Joint Society of Cardiology/[place] College of Cardiology Committee for the redefinition of myocardial infarction. ??Journal of the [place] College of Cardiology 2000; 36: 959-969] Creatine Kinase 338(H) 0 - 160 unit/L [facility] Blood specimen (specimen) 09/22/2016 4:00 AM EST 09/22/2016 4:34 AM EST Narrative Resulting Agency Comment Spec In Lab Alirio Esparza MD CHEMISTRY ORDERABLE S [facility] [place] [address] * (ABNORMAL) Glucose, fasting (09/22/2016 4:00 AM EST) Pathologist [facility] Glucose Fasting 137(H) 65 - 99 mg/dL [...] of Diabetes Mellitus, Position Statement from the [place] Diabetes Association. ??Diabetes Care, Volume 33, Supplement 1, Aug 2009 Blood specimen (specimen) 09/22/2016 4:00 AM EST 09/22/2016 4:34 AM EST Narrative Resulting Agency Comment Spec In Lab Alirio Esparza MD CHEMISTRY ORDERABLE S Performing Organization Address [facility] Co de Phone Number [facility] [place] [address] * (ABNORMAL) Creatinine (09/22/2016 4:00 AM EST) [facility] Signature Creatinine 0.69(L) 0.70 - 1.20 mg/dL [facility] Comment: Please note that the pediatric reference intervals supplied above were not validated at [facility]. Results from pediatric patients should be interpreted in conjunction to the patient's age, height and muscle mass. Est Glomerular Filtration Rate >60 >=60 GIFFORD [...] the following links into your internet browser. [email or web address] Your [email or web address]/DHnkdep [email or web address] Your [email or web address]/DHMCnkf Blood specimen (specimen) 09/22/2016 4:00 AM EST 09/22/2016 4:34 AM EST Narrative Resulting Agency Comment Spec In Lab Alirio Esparza MD CHEMISTRY ORDERABLE S Performing Organization Address [facility] Co de Phone Number [facility] [place] [address] * BUN (09/22/2016 4:00 AM EST) Blood Urea Nitrogen 10 8 - 18 mg/dL [facility] Blood specimen (specimen) 09/22/2016 4:00 AM EST 09/22/2016 4:34 AM EST Narrative Resulting Agency Comment Spec In Lab Alirio Esparza MD CHEMISTRY ORDERABLE S Performing Organization Address City/[facility]/ZIP Co de Phone Number [facility] [place] [address] * POCT Glucose (09/21/2016 9:59 PM EST) Glucose, POC 146 65 - 199 mg/dL [facility] Comment: Supplemental ranges: <140 mg/dL before meals <180 mg/dL all other times of the day Blood specimen (specimen) 09/21/2016 9:59 PM EST 09/21/2016 9:59 PM EST Alirio Esparza MD POINT OF CARE TEST ORDERABLES Performing Organization Address [facility]/ZIP Co de Phone Number [facility] [place] [address] * POCT Glucose (09/21/2016 7:26 PM EST) Glucose, POC 152 65 - 199 mg/dL [facility] Comment: Supplemental ranges: <140 mg/dL before meals <180 mg/dL all other times of the day Blood specimen (specimen) 09/21/2016 7:26 PM EST 09/21/2016 7:26 PM EST Alirio Esparza MD POINT OF CARE TEST ORDERABLES Performing Organization Address City/[facility]/ZIP Co de Phone Number [facility] [place] [address] * POCT Glucose (09/21/2016 6:00 PM EST) Glucose, POC 146 65 - 199 mg/dL [facility] Comment: Supplemental ranges: <140 mg/dL before meals <180 mg/dL all other times of the day Blood specimen (specimen) 09/21/2016 6:00 PM EST 09/21/2016 6:00 PM EST Alirio Esparza MD POINT OF CARE TEST ORDERABLES [facility] [place] [address] * (ABNORMAL) BLOOD GAS 2 ARTERIAL (09/21/2016 [...] Oxyhemoglobin, Arterial 96.2 94.0 - 97.0 % [facility] Carboxyhemoglob in, Arterial 0.0 % [facility] FIO2 Art 40 % [facility] PF Ratio Art 270 [facility] Blood specimen (specimen) 09/21/2016 4:42 PM EST 09/21/2016 4:42 PM EST Alirio Esparza MD POINT OF CARE TEST ORDERABLES Performing Organization Address [facility] Co de Phone Number [facility] [place] [address] * POCT Glucose (09/21/2016 4:07 PM EST) Glucose, POC 150 65 - 199 mg/dL [facility] Comment: Supplemental ranges: <140 mg/dL before meals <180 mg/dL all other times of the day Blood specimen (specimen) 09/21/2016 4:07 PM EST 09/21/2016 4:07 PM EST Alirio Esparza MD POINT OF CARE TEST ORDERABLES Performing Organization Address [facility] Co de Phone Number [facility] [place] [address] * (ABNORMAL) Hemoglobin (09/21/2016 4:05 PM EST) Hemoglobin 9.9(L) 11.7 - 15.5 gm/dL [facility] Blood specimen (specimen) 09/21/2016 4:05 PM EST 09/21/2016 4:20 PM EST Narrative Resulting Agency Comment Spec In Lab Alirio Esparza MD HEMATOLOGY ORDERABL ES Performing Organization Address [facility] Co de Phone Number [facility] [place] [address] * Potassium (09/21/2016 4:05 PM EST) Potassium [...] City/[facility]/ZIP Co de Phone Number [facility] [place] [address] * POCT Glucose (09/21/2016 2:52 PM EST) Glucose, POC 117 65 - 199 mg/dL [facility] Comment: Supplemental ranges: <140 mg/dL before meals <180 mg/dL all other times of the day Blood specimen (specimen) 09/21/2016 2:52 PM EST 09/21/2016 2:52 PM EST Alirio Esparza MD POINT OF CARE TEST ORDERABLES Performing Organization Address City/[facility]/ZIP Co de Phone Number [facility] [place] [address] * POCT Glucose (09/21/2016 1:51 PM EST) Glucose, POC 108 65 - 199 mg/dL [facility] Comment: Supplemental ranges: <140 mg/dL before meals <180 mg/dL all other times of the day Blood specimen (specimen) 09/21/2016 1:51 PM EST 09/21/2016 1:51 PM EST Alirio Esparza MD POINT OF CARE TEST ORDERABLES Performing Organization Address City/[facility]/ZIP Co de Phone Number [facility] [place] [address] * POCT Glucose (09/21/2016 12:54 PM EST) Glucose, POC 128 65 - 199 mg/dL [facility] Comment: Supplemental ranges: <140 mg/dL before meals <180 mg/dL all other times of the day Blood specimen (specimen) 09/21/2016 12:54 PM EST 09/21/2016 12:54 PM EST Alirio Esparza MD POINT OF CARE TEST ORDERABLES [facility] [place] [address] * EKG 12 Lead (09/21/2016 12:26 PM EST) Ventricular rate 87 BPM MUSE SYSTEM Atrial Rate 87 BPM MUSE SYSTEM P-R Interval 256 ms MUSE SYSTEM QRS Duration 90 ms MUSE SYSTEM Q-T Interval 406 ms MUSE SYSTEM QTC Calculated (Bezet) 488 ms MUSE SYSTEM Calculated P Kimball 24 degrees MUSE SYSTEM Calculated R Kimball 21 degrees MUSE SYSTEM Calculated T Kimball -5 degrees MUSE SYSTEM INTERPRETATION Sinus rhythm [...] course of the esophagus and below the [id number]. There is a right IJ PA catheter [...] the course of theesophagus and below the [id number]. There is a right IJ PA catheter [...] [facility] FIO2 Art 100 % [facility] PF Ratio Art 356 [facility] Blood specimen (specimen) 09/21/2016 12:20 PM EST 09/21/2016 12:20 PM EST Alirio Esparza MD POINT OF CARE TEST ORDERABLES [facility] [place] [address] * (ABNORMAL) BLOOD GAS 2 ARTERIAL (09/21/2016 [...] [facility] FIO2 Art 95 % [facility] Flow Art 0.7 LPM [facility] PF Ratio Art 313 [facility] Temp Art 36.7 Celsius [facility] Blood specimen (specimen) 09/21/2016 10:54 AM EST 09/21/2016 10:54 AM EST Alirio Esparza MD POINT OF CARE TEST ORDERABLES [facility] [place] [address] * Thrombin time (09/21/2016 10:50 AM EST) [...] S Performing Organization Address [facility] Co de Phone Number [facility] [place] [address] * Fibrinogen (09/21/2016 10:50 AM EST) Fibrinogen [...] Luis Enrique Quarles MD HEMATOLOGY ORDERABLE S [facility] [place] [address] * APTT (09/21/2016 10:50 AM EST) Partial Thromboplastin Time 32 25 - 35 sec [facility] Comment: The recommended therapeutic range for full dose, unfractionated heparin at [facility] is 80 ? 114 seconds. [...] S Performing Organization Address [facility] de Phone Number [facility] [place] [address] * (ABNORMAL) Prothrombin Time (09/21/2016 10:50 AM [...] S Performing Organization Address [facility] de Phone Number [facility] [place] [address] * (ABNORMAL) Hemogram (09/21/2016 10:50 AM EST) [...] Standard Deviation 42.6 37.0 - 46.0 fL [facility] RDW coefficient of variation 12.1 11.5 - 14.1 % [facility] Mean Platelet Volume 9.2 7.6 - 12.9 fL [facility] NRBC% auto 0.1 % [facility] NRBC Absolute 0.020(H) 0.000 - 0.000 x10(3)/mc L [facility] Blood specimen (specimen) 09/21/2016 10:50 AM EST 09/21/2016 10:56 AM EST Narrative Resulting Agency Comment Spec In Lab Luis Enrique Quarles MD HEMATOLOGY ORDERABLE S Performing Organization Address City/[facility] Co de Phone Number [facility] [place] [address] * Prepare Platelets, Apheresis (09/21/2016 10:30 AM EST) Pathologist [facility] Dispensed? Yes [facility] Blood specimen (specimen) 09/21/2016 10:30 AM EST 09/21/2016 10:28 AM EST Alirio Esparza MD BLOOD BANK PRODUCT ORDERABLES Performing Organization Address City/[facility]/ZIP Co de Phone Number [facility] [place] [address] * (ABNORMAL) BLOOD GAS 2 ARTERIAL (09/21/2016 10:05 AM EST) Pathologist [facility] pH, Arterial 7.33(L) 7.35 - 7.45 [facility] PCO2, Arterial 54(Critic al) 35 - 45 mmHg [facility] Comment:Noted by medical or surgical instrument maker. PO2, Arterial 218(H) 85 - 104 mmHg [facility] Bicarbonate, Arterial 27.9(H) 20.0 - 26.0 mmol/L [facility] Base Excess, Arterial 2.0 -3.0 - 3.0 mmol/L [facility] [...] [facility] Comment: Noted by medical or surgical instrument maker. Please note: Patients with WBC [...] [facility] Temp Art 37.0 Celsius [facility] Blood specimen (specimen) 09/21/2016 10:05 AM EST 09/21/2016 10:05 AM EST Alirio Esparza MD POINT OF CARE TEST ORDERABLES [facility] [place] [address] * (ABNORMAL) BLOOD GAS 2 ARTERIAL (09/21/2016 9:44 AM EST) pH, Arterial 7.22(Criti gabrielle) 7.35 - 7.45 [facility] Comment:Noted by medical or surgical instrument maker. PCO2, Arterial 70(Critica l) 35 - 45 mmHg [facility] Comment:Noted by medical or surgical instrument maker. PO2, Arterial 224(H) 85 - [...] OF CARE TEST ORDERABLES Performing Organization Address [facility] de Phone Number [facility] [place] [address] * (ABNORMAL) Hemoglobin (09/21/2016 9:42 AM EST) Hemoglobin 7.2(L) 11.7 - 15.5 gm/dL [facility] Blood specimen (specimen) 09/21/2016 9:42 AM EST 09/21/2016 9:51 AM EST Narrative Resulting Agency Comment Spec In Lab Alirio Esparza MD HEMATOLOGY ORDERABL ES Performing Organization Address [facility] Phone Number [facility] [place] [address] * Platelet count (09/21/2016 9:42 AM EST) Platelet 159 145 - 357 x10(3)/mc L [facility] Immature Plt % 1.6 0.0 - 7.4 % [facility] Comment: Limitation of the Immature Platelet Fraction (IPF)-May be less reliable when the platelet count is less than 77m853/uL due to statistical imprecision. The IPF value [...] in a decreased state of production. References: [employer] The Clinical Value of the Immature Platelet Fraction (IPF) in Cell Recovery Document Number [id number] 12/2010 [employer] The Role of the Immature Platelet Fraction (IPF) in the Differential Diagnosis of Thrombocytopenia, Document [id number] V05/07/15 P012/13 Blood specimen (specimen) 09/21/2016 9:42 AM EST 09/21/2016 9:51 AM EST Narrative Resulting Agency Comment Spec In Lab Alirio Esparza MD HEMATOLOGY ORDERABL ES Performing Organization Address [facility] Co de Phone Number [facility] [place] [address] * (ABNORMAL) Hematocrit (09/21/2016 9:42 AM EST) [...] MD HEMATOLOGY ORDERABL ES Performing Organization Address [facility] Co de Phone Number [facility] [place] [address] * Fibrinogen (09/21/2016 9:42 AM EST) Fibrinogen [...] HEMATOLOGY ORDERABL ES [facility] [place] [address] * (ABNORMAL) BLOOD GAS 2 ARTERIAL (09/21/2016 [...] [facility] Temp Art 37.0 Celsius [facility] Blood specimen (specimen) 09/21/2016 9:10 AM EST 09/21/2016 9:10 AM EST Alirio Esparza MD POINT OF CARE TEST ORDERABLES [facility] [place] [address] * Surgical Pathology Report (09/21/2016 9:09 AM EST) Final Diagnosis [id number] ?Location: 3T The signing pathologist has (i) [...] Esparza MD PATHOLOGY/CYTOLOGY ORDERABLES Performing Organization Address City/[facility]/[place] [address] * Specimen to Pathology (surgical or derm) (09/21/2016 9:09 AM EST) AP Specimen 09/21/2016 9:09 AM EST 09/21/2016 9:09 AM EST Narrative [facility] - 09/21/2016 9:09 AM EST Specimen requisition ordered. ??Separate Pathology report to follow Alirio Esparza MD PATHOLOGY/CYTOLOGY ORDERABLES Performing Organization Address [facility] [place] [address] * (ABNORMAL) BLOOD GAS 2 ARTERIAL (09/21/2016 [...] OF CARE TEST ORDERABLES Performing Organization Address City/State/[facility] Co de Phone Number [facility] [place] [address] * (ABNORMAL) BLOOD GAS 2 ARTERIAL (09/21/2016 [...] [facility] FIO2 Art 95 % [facility] Flow Art 1.1 LPM [facility] PF Ratio Art 298 [facility] Temp Art 35.6 Celsius [facility] Blood specimen (specimen) 09/21/2016 8:18 AM EST 09/21/2016 8:18 AM EST Alirio Esparza MD POINT OF CARE TEST ORDERABLES [facility] [place] [address] * Prepare RBC (09/21/2016 7:05 AM EST) Dispensed? Yes [facility] Blood specimen (specimen) 09/21/2016 7:05 AM EST 09/21/2016 7:02 AM EST Alirio Esparza MD BLOOD BANK PRODUCT ORDERABLES [facility] [place] [address] * POCT Glucose (09/21/2016 6:42 AM EST) Glucose, POC 104 65 - 199 mg/dL [facility] Comment: Supplemental ranges: <140 mg/dL before meals <180 mg/dL all other times of the day Blood specimen (specimen) 09/21/2016 6:42 AM EST 09/21/2016 6:42 AM EST Alirio Esparza MD POINT OF CARE TEST ORDERABLES Performing Organization Address [facility] Co de Phone Number [facility] [place] [address] documented in this encounter Visit Diagnoses Diagnosis [...] dose on Wed09/21/16 at 1230, Until Discontinued, [place] teeth, Routine Given 09/25/2016 9:40 AM EST [...] if phenyleprine and/or vasopressin ineffective.Call pager # [phone] if initiated., Routine Rate/Dose Change 09/21/2016 2:27 [...] 2.0 L/min/M2. Maximum volume 2 L. Call household chores for additional fluid orders: pager #[phone]. Rate/Dose Verify 09/22/2016 10:00 AM EST 10 [...] dose on Wed09/21/16 at 1230, Until Discontinued, [place] teeth, Routine 0900 (Not Given - Provider: [...] RN)1708 (Given - Provider: Federico Apple RN) 08 [...] 0829 (See Alternative - Provider: Marek Barnes, VALDO) [...] Routine documented in this encounter Care Teams Analytics Developer Relationship Specialty Start Date End Date Deborah Quiroga APRN PCP - General Family Medicine 03/24/16 02/04/23 documented as of this encounter
--- OUTSIDE RECORDS SUMMARY | 2024-04-18 14:38 | XMS_ITS | Encounter Summary ---
Author Organization [facility] Address [facility] [place] [address] Care Team Providers Care Mass Spectrometry Specialist Name Role Phone Deborah Quiroga APRN Primary Care Provider [phone] Encounter Details Date Type Department Care Team (Latest Contact Info) Description 10/14/2016 - 10/14/2016 11:59 PM EDT Hospital Encounter Radiology Library at [facility] [place] [phone] Alirio Esparza MD Pain Discharge Disposition: Home [...] AM EDT Appointment Hematology [place] [address] 05/12/2024 10:00 AM EDT Office Visit Hematology [place] [address] Markel Borjas MD [facility] [address] HEMATOLOGY [place] [address] 03/01/2025 4:15 PM EDT Office Visit Dermatology at [place] [address] [place] [address] Marek Bonilla MD [address], [place] [address] documented as of this encounter Procedures Procedure Name Priority Date/Time Associated Diagnosis Comments FILM LIBRARY STORAGE ONLY DX CHEST Routine 10/14/2016 12:00 AM EDT Pain documented in this encounter Results * Film Library- Storage Only DX Chest (10/14/2016 12:00 AM EDT) Narrative [facility] - 10/14/2016 5:16 PM EDT This exam is for storage only and is auto-finalizing. Alirio Esparza MD IMG FILM LIBRARY OR DERABLES Performing Organization Address City/State/[facility] Co de Phone Number [place], [place] documented in this encounter Visit Diagnoses Diagnosis Pain Generalized pain documented in this encounter Care Teams Mass Spectrometry Specialist Relationship Specialty Start Date End Date Deborah Quiroga, CHIEF OF VITAL STATISTICS PCP - General Family Medicine 03/24/16 02/04/23 documented as of this encounter
--- OUTSIDE RECORDS SUMMARY | 2024-04-18 14:38 | XMS_ITS | Encounter Summary ---
[place] [address] Care Team Providers Care Forest Botany Instructor Name Role Phone Junaid, Deborah Shields APRN Primary Care Provider [phone] Encounter Details Date Type Department Care Team (Late st Contact Info) Description 10/20/2016 11:20 AM EDT Office Visit [place] [phone] Alirio Esparza MD S/P AVR Social History [...] should continue to see Dr. Burrell, her fleet manager at [facility]. cc: Dr. Burrell documented in this encounter Plan of Treatment Upcoming Encounters Date Type Department Care Team (Late st Contact Info) Description 05/12/2024 9:00 AM EDT Appointment Hematology [place] [address] 05/12/2024 10:00 AM EDT Office Visit Hematology [place] [address] Markel Borjas MD [facility] HEMATOLOGY [place] [address] 03/01/2025 4:15 PM EDT Office Visit Dermatology at [place] [address] [place] [address] Marek Bonilla MD [address], [place] [address] documented as of this encounter Visit Diagnoses Diagnosis S/P AVR Heart valve replaced by other means documented in this encounter Care Teams Forest Botany Instructor Relationship Specialty Start Date End Date Deborah Quiroga APRN PCP - General Family Medicine 03/24/16 02/04/23 documented as of this encounter
--- OUTSIDE RECORDS SUMMARY | 2024-04-18 14:38 | XMS_ITS | Encounter Summary ---
[place] [address] Care Team Providers Care Physicist Nuclear Name Role Phone Ashley Quirogan Cornelius ANURAG Primary Care Provider [phone] Reason for Visit * Reason Onset Date Comments Medical Care Coordination 07/27/2017 Encounter Details Date Type Department Care Team (Late st Contact Info) Description 07/27/2017 Telephone Hematology [place] [phone] Alexandrea Greenwood RN Medical Care Coordination Social [...] 07/27/2017 12:25 PM EST Message received from construction secretary: Injection/Infusion Referral Call placed to [facility] @ [phone] Spoke w/ TOUR NARRATOR Services to be provided for pt are: CBC/CMP DONE Q6 MONTHS X2 STARTING NOVEMBER 2017 TECH confirmed they would provide services to pt - I CALLED PT, LM. Pt orders faxed to [phone] documented in this encounter Plan of Treatment Upcoming Encounters Date Type Department Care Team (Late st Contact Info) Description 05/12/2024 9:00 AM EDT Appointment H[place]ology [place] [address] 05/12/2024 10:00 AM EDT Office Visit Hematology [place] [address] Markel Borjas MD [facility] HEMATOLOG[place] [address] 03/01/2025 4:15 PM EDT Office Visit Dermatology at [place] [address] [place] [phone] Marek Bonilla MD [address] [place] [address] documented as of this encounter Visit Diagnoses Not on filedocumented in this encounter Care Teams Physicist Nuclear Relationship Specialty Start Date End Date Deborah Quiroga APRN PCP - General Family Medicine 03/24/16 02/04/23 documented as of this encounter
--- OUTSIDE RECORDS SUMMARY | 2024-04-18 14:38 | XMS_ITS | Encounter Summary ---
[place] [address] Care Team Providers Care Career Manager Name Role Phone Ashley Quirogan Cornelius ANURAG Primary Care Provider [phone] Reason for Visit * Reason Comments Acrochordon Rosacea Encounter Details Date Type Department Care Team (Late st Contact Info) Description 12/05/2020 3:00 PM EDT Office Visit Dermatology at [address] [address] Marek Bonilla MD [address] [facility] [place] [address] Inflamed acrochordon Social History Tobacco Use Types [...] AM EDT Appointment Hematology [place] [address] 05/12/2024 10:00 AM EDT Office Visit Hematology [place] [address] Markel Borjas MD [facility] [address] HEMATOLOGY [place] [address] 03/01/2025 4:15 PM EDT Office Visit Dermatology at [place] [address] [place] [address] Marek Bonilla MD [address] [facility] [place] [address] documented as of this encounter Visit Diagnoses Diagnosis Inflamed acrochordon Unspecified hypertrophic and atrophic condition of skin documented in this encounter Care Teams Career Manager Relationship Specialty Start Date End Date Deborah Quiroga APRN PCP - General Family Medicine 03/24/16 02/04/23 documented as of this encounter
--- OUTSIDE RECORDS SUMMARY | 2024-04-18 14:38 | XMS_ITS | Encounter Summary ---
Author Organization [facility] Erika [facility] [place] [address] Care Team Providers Care Database Marketing Manager Name Role Phone Winter Quiroga APRN Primary Care Provider [phone]- [phone] Encounter Details Date Type Department Care Team (Late st Contact Info) Description 06/05/2021 Interpretation Only [address] [address] Winter Quiroga APRN [address] [address] Social History Tobacco Use Types Packs/Day Years [...] AM EDT Appointment H[place] [address] 05/12/2024 10:00 AM EDT Office Visit [place]ematology [place] [address] Markel Borjas MD [facility] DR HEMATOLOGY [place] [address] 03/01/2025 4:15 PM EDT Office Visit Dermatology at [place] [address] [place] [address] Marek Bonilla MD [address], [place] [address] documented as of this encounter Procedures Procedure Name Priority Date/Time Associated Diagnosis Comments MAMMO SCREENING CAD BILATERAL Routine 06/05/2021 11:42 AM EDT documented in this encounter Results * Mammo Screening Cad Bilateral (06/05/2021 11:42 AM EDT) PT CLASS O DH RAD ADMITDTTM DH RAD PT DH RAD INFO [id number]^EV ERETT^WINTER^E DH RAD EXAM DESC MADDSC^SCREEN MAMMO BL [...] have questions please contact the health care manager cna that requested your imaging first. ? Electronically signed by: Rocael Villatoro MD, [facility] ([phone]), at 06/05/2021 1:27 PM Narrative 06/05/2021 1:27 [...] who have questions please contactthe health care manager cna that requested your imaging first. Electronically signed by: Rocael Villatoro MD, [facility]([phone]), at 06/05/2021 1:27 PM Winter Quiroga APRN IMG MAMMO ORDERABLE S documented in this encounter Visit Diagnoses Not on filedocumented in this encounter Care Teams Database Marketing Manager Relationship Specialty Start Date End Date Winter Quiroga APRN PCP - General Family Medicine 03/24/16 02/04/23 documented as of this encounter
--- OUTSIDE RECORDS SUMMARY | 2024-04-18 14:38 | XMS_ITS | Encounter Summary ---
Author Organization [facility] Address [facility] [place] [address] Care Team Providers Care Human Service Technician Name Role Phone Deborah Quiroga APRN Primary Care Provider [phone] Encounter Details Date Type Department Care Team (Late st Contact Info) Description 12/04/2016 External Results Hematology [place] [address] Teresa Dodson RN Social History Tobacco Use [...] AM EDT Appointment [place]ematology [place] [address] 05/12/2024 10:00 AM EDT Office Visit [place]ematology [place] [address] Markel Borjas MD [facility] [address] [place] [address] 03/01/2025 4:15 PM EDT Office Visit Dermatology at [address] [phone] Marek Bonilla MD [address], [place] [address] documented as of this encounter Procedures Procedure Name Priority Date/Time Associated Diagnosis Comments CBC (WITH DIFF) Routine 12/03/2016 11:35 AM EDT COMPREHENSIVE METABOLIC PANEL Routine 12/03/2016 11:35 AM EDT documented in this encounter Results * (ABNORMAL) Comprehensive metabolic panel (non-fasting) (12/03/2016 11:35 AM EDT) Glucose 85([facility]) Blood Urea Nitrogen 11([facility]) Creatinine 0.93(Exte rnal Lab) Sodium 140(Exter nal Lab) Potassium 4.2(Ex[facility] nal Lab) Chloride 104(Ex[facility]) Calcium 10.0(Exte rnal Lab) Protein, Total 8.1(Exter nal Lab) Albumin 3.5(Exter nal Lab) Bilirubin, Total 0.25(Exte rnal Lab) Alkaline Phosphatase 96([facility]) Aspartate Aminotransferase 18([facility]) Alanine Aminotransferase 21([facility]) Blood specimen (specimen) 12/03/2016 11:35 AM EDT Historical Provider CHEMISTRY ORDERAB LES * (ABNORMAL) CBC (with Diff) (12/03/2016 11:35 AM EDT) White Blood Cell 1.61(EXTER NAL/ABN) 4.4 - 10.8 Hemoglobin 13.0(Exter nal Lab) Hematocrit 39.8(Exter nal Lab) Platelet 248([facility]) Neutrophil Absolute (ANC) - Automated 0.5(CARDIOTHORACIC SURGEON AL/ABN) Blood specimen (specimen) 12/03/2016 11:35 AM EDT Historical Provider HEMATOLOGY ORDERA BLES documented in this encounter Visit Diagnoses Not on filedocumented in this encounter Care Teams Human Service Technician Relationship Specialty Start Date End Date Deborah Quiroga, ANURAG PCP - General Family Medicine 03/24/16 02/04/23 documented as of this encounter
--- OUTSIDE RECORDS SUMMARY | 2024-04-18 14:38 | XMS_ITS | Encounter Summary ---
[place] [address] Care Team Providers Care Rn Pediatric Icu Name Role Phone Ashley Quirogazac Shields APRN Primary Care Provider [phone] Reason for Visit * Reason Onset Date Comments Results 12/03/2016 Encounter Details Date Type Department Care Team (Late Contact Info) Description 12/03/2016 Telephone Hematology [place] [address] Yudith Valentine RN Results Social [...] EDT RN received call from Maddy at [facility] reporting critical WBC at 1.61, and ANC of 0.5. She will fax the full results to this office for claim review medical director notified DR Borjas of above results documented in this encounter Plan of Treatment Upcoming Encounters Date Type Department Care Team (Late st Contact Info) Description 05/12/2024 9:00 AM EDT Appointment Hematology [place] [address] 05/12/2024 10:00 AM EDT Office Visit Hematology [place] [address] Markel Borjas MD [facility] [address] [place] [address] 03/01/2025 4:15 PM EDT Office Visit Dermatology at [place] [address] [place] [address] Marek Bonilla MD [address], [place] [address] documented as of this encounter Visit Diagnoses Not on filedocumented in this encounter Care Teams Rn Pediatric Icu Relationship Specialty Start Date End Date Deborah Quiroga APRN PCP - General Family Medicine 03/24/16 02/04/23 documented as of this encounter
--- OUTSIDE RECORDS SUMMARY | 2024-04-18 14:38 | XMS_ITS | Encounter Summary ---
Author Organization [facility] Address [facility] [place] [address] Care Team Providers Care Pet Technologist Name Role Phone Deborah Quiroga APRN Primary Care Provider [phone] Encounter Details Date Type Department Care Team (Late st Contact Info) Description 06/18/2017 11:00 AM EST Office Visit [place]ology [place] [address] Markel Borjas MD [facility] [address] HEMATOLOGY [place] [address] Neutropenia, unspecified type Social History Tobacco Use [...] 06/18/2017 11:00 AM EST Hematology Outpatient Clinic [facility] Hematology Outpatient Consult Note CC: 60 [...] TOUCH PREP, CLOT SECTION, CORE ??BIOPSY); [OSR# [id number], COLLECTED 06/23/2016, 19 SLIDES]: ?1. ??Normocellular marrow [...] a clonal lymphoproliferative or myeloproliferative disorder (OSR# [id number]) Chromosome analysis on the marrow aspirate revealed [...] working the same job and participating in [employer]. Past Medical/Surgical History: 1. Leukopenia -element of neutropenia, as noted above 2. Aortic Stenosis -severe -AVR surgery 3. Hypercholesterolemia 4. Depression 5. Hypertension 6. 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 Extremities: No edema. Labs: Hgb= 13 Juyy=129 ANC= 0.6 Imaging As above - reviewed [...] AM EDT Appointment H[place] [address] 05/12/2024 10:00 AM EDT Office Visit [place]emat[place] [address] Markel Borjas MD [facility] [address] HEMATOLOGY [place] [address] 03/01/2025 4:15 PM EDT Office Visit Dermatology at [place] [address] [place] [address] Marek Bonilla MD [address], [place] [address] documented as of this encounter Visit Diagnoses Diagnosis Neutropenia, unspecified type documented in this encounter Care Teams Pet Technologist Relationship Specialty Start Date End Date Deborah Quiroga APRN PCP - General Family Medicine 03/24/16 02/04/23 documented as of this encounter
--- OUTSIDE RECORDS SUMMARY | 2024-04-18 14:38 | XMS_ITS | Encounter Summary ---
[place] [address] Care Team Providers Care Spouting Installer Name Role Phone Deborah Quiroga ANURAG Primary Care Provider +1 [phone] Encounter Details Date Type Department Care Team (Late st Contact Info) Description 02/07/2020 Telephone Hematology [place] [address] Ellen Rios RN Social History [...] 02/07/2020 12:59 PM EDT Message received from personal secretary: Injection/Infusion Referral Services to be provided for pt are: CBC only at [facility]- Pt will go by 02/27 Orders faxed to [phone]). Spoke with pt. She will call [facility] directly to schedule a time that works for her. documented in this encounter Plan of Treatment Upcoming Encounters Date Type Department Care Team (Late Contact Info) Description 05/12/2024 9:00 AM EDT Appointment Hematology [place] [address] 05/12/2024 10:00 AM EDT Office Visit [place]ematology [place] [address] Markel Borjas MD [facility] [address] [place] [address] 03/01/2025 4:15 PM EDT Office Visit Dermatology at [place] [address] [place] [address] Marek Bonilla MD [address], [place] [address] documented as of this encounter Visit Diagnoses Not on filedocumented in this encounter Care Teams Spouting Installer Relationship Specialty Start Date End Date Deborah Quiroga APRN PCP - General Family Medicine 03/24/16 02/04/23 documented as of this encounter
--- OUTSIDE RECORDS SUMMARY | 2024-04-18 14:38 | XMS_ITS | Encounter Summary ---
Author Organization [facility] Address [facility] [place] [address] Care Team Providers Care Enroller Name Role Phone Deborah Quiroga ANURAG Primary Care Provider [phone] Encounter Details Date Type Department Care Team (Late Contact Info) Description 07/21/2017 Orders Only Hematology [place] [address] Alexandrea Greenwood RN Other neutropenia Social History [...] AM EDT Appointment Hematology [place] [address] 05/12/2024 10:00 AM EDT Office Visit Hematology [place] [address] Markel Borjas MD [facility] [place] [address] 03/01/2025 4:15 PM EDT Office Visit Dermatology at [address] [address] Marek Bonilla MD [address], [place] [address] documented as of this encounter Visit Diagnoses Diagnosis Other neutropenia documented in this encounter Care Teams Enroller Relationship Specialty Start Date End Date Dbeorah Quiroga APRN PCP - General Family Medicine 03/24/16 02/04/23 documented as of this encounter
--- OUTSIDE RECORDS SUMMARY | 2024-04-18 14:38 | XMS_ITS | Encounter Summary ---
[place] [address] Care Team Providers Care Concrete Mixing Truck Driver Name Role Phone JunaidDeborah APRN Primary Care Provider [phone] Reason for Visit * Reason Comments Follow-up Encounter Details Date Type Department Care Team (Late st Contact Info) Description 01/10/2021 4:30 PM EDT Office Visit Dermatology at [place] [address] [place] [address] Marek Bonilla MD [address], [address] DERMATOLOGY [place], [place] [address] Rosacea Social History Tobacco Use Types Packs/Day [...] cutaneous and ocular 2. Previously told by scagliola mechanic that she had corneal tears from her [...] 3 refills. Will call this in her [facility] pharmacy in [place] 3. Continue metronidazole 0.75% gel applying once [...] AM EDT Appointment Hematology [place] [address] 05/12/2024 10:00 AM EDT Office Visit [place]ematology [place] [address] Markel Borjas MD [facility] [address] [place] [address] 03/01/2025 4:15 PM EDT Office Visit Dermatology at [place] [address] [place] [address] Marek Bonilla MD [address], [place] [address] documented as of this encounter Visit Diagnoses Diagnosis Rosacea documented in this encounter Care Teams Concrete Mixing Truck Driver Relationship Specialty Start Date End Date Deborah Quiroga, ANURAG PCP - General Family Medicine 03/24/16 02/04/23 documented as of this encounter
--- OUTSIDE RECORDS SUMMARY | 2024-04-18 14:38 | XMS_ITS | Encounter Summary ---
Author Organization [facility] Address [facility] [place] [address] Care Team Providers Care Correction Officer Reformatory Name Role Phone Deborah Quiroga APRN Primary Care Provider [phone] Encounter Details Date Type Department Care Team (Late st Contact Info) Description 03/01/2020 11:30 AM EDT Office Visit [place]ology [place] [address] Patrick Borjas MD [facility] DR HEMATOLOGY [place] [address] Neutropenia, unspecified type Social History Tobacco Use [...] 03/01/2020 11:30 AM EDT [facility] [...] TOUCH PREP, CLOT SECTION, CORE ??BIOPSY); [OSR# [id number], COLLECTED 06/23/2016, 19 SLIDES]: ?1. 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 Extremities: No edema. Labs: Hgb= 12.4 Vvch=880 ANC= 2.5 Imaging As above - reviewed [...] AM EDT Appointment Hematology [place] [address] 05/12/2024 10:00 AM EDT Office Visit [place] [address] Patrick Borjas MD [facility] [address] HEMATOLOGY [place] [address] 03/01/2025 4:15 PM EDT Office Visit Dermatology at [place] [address] [address] [place] [address] Marek Bonilla MD [address], [address] [place] DERMATOLOGY [place], [place] [address] documented as of this encounter Visit Diagnoses Diagnosis Neutropenia, unspecified type documented in this encounter Care Teams Correction Officer Reformatory Relationship Specialty Start Date End Date Deborah Quiroga APRN PCP - General Family Medicine 03/24/16 02/04/23 documented as of this encounter
--- OUTSIDE RECORDS SUMMARY | 2024-04-18 14:38 | XMS_ITS | Encounter Summary ---
Author Organization [facility] Address [facility] [place] [address] Care Team Providers Care Nurse Practitioner Physicians Assistant Name Role Phone Junaid Deborah Shields APRN Primary Care Provider [phone] Reason for Visit * Reason Comments Schedule Office Case Pain right leg Encounter Details Date Type Department Care Team (Late st Contact Info) Description 12/11/2016 9:00 AM EDT Office Visit Hematology [place] [address] Markel Borjas MD [facility] DR HEMATOLOGY [place] [address] Neutropenia, unspecified type Social History Tobacco Use [...] 12/11/2016 9:00 AM EDT Hematology Outpatient Clinic [facility] Hematology Outpatient Consult Note CC: [...] TOUCH PREP, CLOT SECTION, CORE ??BIOPSY); [OSR# [id number], COLLECTED 06/23/2016, 19 SLIDES]: ?1. 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 Extremities: No edema. Labs: Hgb= 13 Nokv=209 ANC= 0.5 Imaging As above - reviewed [...] AM EDT Appointment Hematology [place] [address] 05/12/2024 10:00 AM EDT Office Visit Hematology [place] [address] Markel Borjas MD [facility] [address] HEMATOLOGY [place] [address] 03/01/2025 4:15 PM EDT Office Visit Dermatology at [place] [address] [place] [address] Marek Bonilla MD [address] [facility] [place] [address] documented as of this encounter Results * [...] documented in this encounter Care Teams Nurse Practitioner Physicians Assistant Relationship Specialty Start Date End Date Deborah Quiroga, COOPERER PCP - General Family Medicine 03/24/16 02/04/23 documented as of this encounter
--- OUTSIDE RECORDS SUMMARY | 2024-04-18 14:38 | XMS_ITS | Encounter Summary ---
Author Organization [facility] Erika [facility] [place] [address] Care Team Providers Care Ios Developer Name Role Phone Winter Quiroga APRN Primary Care Provider [phone]- [phone] Encounter Details Date Type Department Care Team (Late st Contact Info) Description 06/05/2021 Interpretation Only [address] [address] Winter Quiroga APRN [address] [address] Social History Tobacco Use Types Packs/Day Years [...] AM EDT Appointment Hematology [place] [address] 05/12/2024 10:00 AM EDT Office Visit Hematology [place] [address] Markel Borjas MD [facility] DR [place] [address] 03/01/2025 4:15 PM EDT Office Visit Dermatology at [place] [address] [place] [address] Marek Bonilla MD [address], [place] [address] documented as of this encounter Procedures Procedure Name Priority Date/Time Associated Diagnosis Comments DXA CENTRAL SPINE, HIP, AND/OR WHOLE BODY (GENERIC) Routine 06/05/2021 11:58 AM EDT documented in this encounter Results * DXA Central Spine, Hip, and/or Whole Body (Generic) (06/05/2021 11:58 AM EDT) PT CLASS O RAD ADMITDTTM RAD PT RAD INFO [id number]^E VERETT^WINTER ^E RAD EXAM DESC XDXAC^DEXA SCAN AXIAL^RIS [...] orientation teacher that requested your imaging first. Winter LLAMAS DEXA ORDERABLES documented in this encounter Visit Diagnoses Not on filedocumented in this encounter Care Teams Ios Developer Relationship Specialty Start Date End Date Winter Quiroga APRN PCP - General Family Medicine 03/24/16 02/04/23 documented as of this encounter
--- OUTSIDE RECORDS SUMMARY | 2024-04-18 14:38 | XMS_ITS | Encounter Summary ---
Author Organization [facility] Erika [facility] [place] [address] Care Team Providers Care Electronics Teacher Name Role Phone Winter Quiroga APRN Primary Care Provider [phone]- [phone] Encounter Details Date Type Department Care Team (Late st Contact Info) Description 06/05/2021 Interpretation Only [address] [address] Winter Quiroga APRN [address] [address] Social History Tobacco Use Types Packs/Day Years [...] AM EDT Appointment Hematology [place] [address] 05/12/2024 10:00 AM EDT Office Visit Hematology [place] [address] Markel Borjas MD [facility] DR [place] [address] 03/01/2025 4:15 PM EDT Office Visit Dermatology at [place] [address] [address] Marek Bonilla MD [address], [place] [address] documented as of this encounter Procedures Procedure Name Priority Date/Time Associated Diagnosis Comments MAMMO SCREENING CAD AND ERLIN BILATERAL Routine 06/05/2021 11:42 AM EDT documented in this encounter Results * Mammo Screening Cad and Erlin Bilateral (06/05/2021 11:42 AM EDT) PT CLASS O DH RAD ADMITDTTM DH RAD PT DH RAD MD INFO [id number]^EVERET T^WINTER^E DH RAD EXAM DESC MADDSCTO^BREAST SCREEN TOMOSYNTHESIS [...] who have questions please contact the health specialist wound care that requested your imaging first. ? Electronically signed by: Rocael Villatoro MD, [facility] ([phone]), at 06/05/2021 1:27 PM Narrative 06/05/2021 1:27 [...] patients who have questions please contactthe health specialist wound care that requested your imaging first. Electronically signed by: Roacel Villatoro MD, [facility]([phone]), at 06/05/2021 1:27 PM Winter Quiroga APRN IMG MAMMO ORDERABLE S documented in this encounter Visit Diagnoses Not on filedocumented in this encounter Care Teams Electronics Teacher Relationship Specialty Start Date End Date Winter Quiroga APRN PCP - General Family Medicine 03/24/16 02/04/23 documented as of this encounter
--- OUTSIDE RECORDS SUMMARY | 2024-04-18 14:38 | XMS_ITS | Encounter Summary ---
Author Organization [facility] [place] [address] Care Team Providers Care White Sugar Pan Tank Operator Name Role Phone Ashley Quirogan Cornelius ANURAG Primary Care Provider +1 [phone] Encounter Details Date Type Department Care Team (Late st Contact Info) Description 02/06/2020 Orders Only Hematology [place] [address] Markel Borjas MD [facility] [address] HEMATOLOGY [place] [address] Neutropenia, unspecified type Social History Tobacco Use [...] AM EDT Appointment Hematology [place] [address] 05/12/2024 10:00 AM EDT Office Visit Hematology [place] [address] Markel Borjas MD [facility] [address] HEMAT[place] [address] 03/01/2025 4:15 PM EDT Office Visit Dermatology at [place] [address] [place] [address] Marek Bonilla MD [address], [place] [address] documented as of this encounter Visit Diagnoses Diagnosis Neutropenia, unspecified type documented in this encounter Care Teams White Sugar Pan Tank Operator Relationship Specialty Start Date End Date Deborah Quiroga APRN PCP - General Family Medicine 03/24/16 02/04/23 documented as of this encounter
--- OUTSIDE RECORDS SUMMARY | 2024-04-18 14:38 | XMS_ITS | Encounter Summary ---
Author Organization [facility] Address [facility] [place] [address] Care Team Providers Care Therapy Technician Name Role Phone Ashley Quirogan Cornelius ANURAG Primary Care Provider [phone] Encounter Details Date Type Department Care Team (Late st Contact Info) Description 03/04/2020 External Results [place] [address] TherBhumi villela Social History Tobacco Use Types Packs/Day Years [...] AM EDT Appointment [place] [phone] 05/12/2024 10:00 AM EDT Office Visit [place]ology [place] [address] Markel Borjas MD [facility] [address] HEMATOLOGY [place] [address] 03/01/2025 4:15 PM EDT Office Visit Dermatology at [address] [phone] Marek Bonilla MD [address], [place] [address] documented as of this encounter Procedures Procedure [...] AM EDT Historical Provider CHEMISTRY ORDERAB LES EXTERNAL LAB * (ABNORMAL) Comprehensive metabolic panel [...] AM EDT Historical Provider CHEMISTRY ORDERAB LES EXTERNAL LAB * (ABNORMAL) [...] AM EDT Historical Provider HEMATOLOGY ORDERA BLES Performing Organization Address City/State/[facility] Co de Phone Number EXTERNAL LAB documented in this encounter Visit Diagnoses Not on filedocumented in this encounter Care Teams Therapy Technician Relationship Specialty Start Date End Date Deborah Quiroga, FOIL SPOOLER PCP - General Family Medicine 03/24/16 02/04/23 documented as of this encounter
--- OUTSIDE RECORDS SUMMARY | 2024-04-18 14:38 | XMS_ITS | Encounter Summary ---
Author Organization [facility] Address [facility] [place] [address] Care Team Providers Care Office Administrator Name Role Phone Deborah Quiroga ANURAG Primary Care Provider [phone] Encounter Details Date Type Department Care Team (Late st Contact Info) Description 06/18/2017 External Results Hematology [place] [address] Alexandrea Greenwood RN Neutropenia, unspecified type Social [...] AM EDT Appointment Hematology [place] [address] 05/12/2024 10:00 AM EDT Office Visit Hematology [place] [address] Markel Borjas MD [facility] [place] [address] 03/01/2025 4:15 PM EDT Office Visit Dermatology at [address] [address] Marek Bonilla MD [address], [place] [address] documented as of this encounter Procedures Procedure Name Priority Date/Time Associated Diagnosis Comments CBC (WITH DIFF) Routine 06/11/2017 1:19 PM EST Neutropenia, unspecified type COMPREHENSIVE METABOLIC PANEL Routine 06/11/2017 1:19 PM EST Neutropenia, unspecified type documented in this encounter Results * Comprehensive metabolic panel (non-fasting) (06/11/2017 1:19 PM EST) Pathologist [facility] Blood Urea Nitrogen 13 7 - 18 [...] type documented in this encounter Care Teams Office Administrator Relationship Specialty Start Date End Date Deborah Quiroga APRN PCP - General Family Medicine 03/24/16 02/04/23 documented as of this encounter
--- OUTSIDE RECORDS SUMMARY | 2024-04-18 14:38 | XMS_ITS | Encounter Summary ---
Author Organization [facility] Erika ló[place] [address] Care Team Providers Care Acidizer Water Well Name Role Phone Deborah Quiroga ANURAG Primary Care Provider [phone] Encounter Details Date Type Department Care Team (Late st Contact Info) Description 01/13/2021 Refill Dermatology at [address] [address] Taylor Malone, JOB FORWARDER Social History Tobacco Use Types Packs/Day Years [...] AM EDT Appointment Hematology [place] [address] 05/12/2024 10:00 AM EDT Office Visit Hematology [place] [phone] Markel Borjas MD [facility] [place] [address] 03/01/2025 4:15 PM EDT Office Visit Dermatology at [address] [address] Marek Bonilla MD [address], [place] [address] documented as of this encounter Visit Diagnoses Not on filedocumented in this encounter Care Teams Acidizer Water Well Relationship Specialty Start Date End Date Deborah Quiroga APRN PCP - General Family Medicine 03/24/16 02/04/23 documented as of this encounter
--- OUTSIDE RECORDS SUMMARY | 2024-04-18 14:38 | XMS_ITS | Encounter Summary ---
Author Organization [facility] [place] [address] Care Team Providers Care Television Repair Teacher Name Role Phone Deborah Quiroga ANURAG Primary Care Provider [phone] Encounter Details Date Type Department Care Team (Late st Contact Info) Description 11/11/2020 Refill Dermatology at [address] [address] Taylor Malone, LIGHTING DIRECTOR Social History Tobacco Use Types Packs/Day Years [...] AM EDT Appointment Hematology [place] [address] 05/12/2024 10:00 AM EDT Office Visit Hematology [place] [phone] Markel Borjas MD [facility] HEMATOLOGY [place] [address] 03/01/2025 4:15 PM EDT Office Visit Dermatology at [address] [address] Marek Bonilla MD [address], [place] [address] documented as of this encounter Visit Diagnoses Not on filedocumented in this encounter Care Teams Television Repair Teacher Relationship Specialty Start Date End Date Deborah Quiroga APRN PCP - General Family Medicine 03/24/16 02/04/23 documented as of this encounter
--- OUTSIDE RECORDS SUMMARY | 2024-04-18 14:38 | XMS_ITS | Encounter Summary ---
[place] [address] Care Team Providers Care District Attorney Name Role Phone Ashley Quirogan Cornelius ANURAG Primary Care Provider [phone] Reason for Visit * Reason Comments Skin Check Encounter Details Date Type Department Care Team (Late st Contact Info) Description 11/11/2020 10:45 AM EDT Office Visit Dermatology at [address] [place] [address] Marek Bonilla MD [address] [facility], [place] DERMATOLOGY [place], [place] [phone] Rosacea; Acrochordon Social History Tobacco Use Types [...] Discussed the possibility of getting this through [facility] or from the [facility] if necessary. She has not yet [...] AM EDT Appointment Hematology [place] [address] 05/12/2024 10:00 AM EDT Office Visit [place]ematology [place] [address] [facility] [facility] [address] HEMATOLOGY [place] [address] 03/01/2025 4:15 PM EDT Office Visit Dermatology at [place] [address] [facility] [place] [phone] Marek Bonilla MD [address] [facility], [place] [address] documented as of this encounter Visit Diagnoses Diagnosis Rosacea Acrochordon Unspecified hypertrophic and atrophic condition of skin documented in this encounter Care Teams District Attorney Relationship Specialty Start Date End Date Deborah Quiroga APRN PCP - General Family Medicine 03/24/16 02/04/23 documented as of this encounter
--- OUTSIDE RECORDS SUMMARY | 2024-04-18 14:39 | XMS_ITS | Encounter Summary ---
Author Organization [facility] [place] [address] Care Team Providers Care Linoleum Mechanic Name Role Phone Deborah Quiroga APRN Primary Care Provider [phone] Encounter Details Date Type Department Care Team (Late st Contact Info) Description 08/18/2016 4:20 PM EST Clinical Support [place] [phone] Social History Tobacco Use Types Packs/Day Years [...] AM EDT Appointment Hematology [place] [address] 05/12/2024 10:00 AM EDT Office Visit Hematology [place] [address] Markel Borjas MD [facility] [address] [place] [address] 03/01/2025 4:15 PM EDT Office Visit Dermatology at [place] [address] [facility] [address] Marek Bonilla MD [address] [facility], [place] [address] documented as of this encounter Visit Diagnoses Not on filedocumented in this encounter Care Teams Linoleum Mechanic Relationship Specialty Start Date End Date Deborah Quiroga APRN PCP - General Family Medicine 03/24/16 02/04/23 documented as of this encounter
--- OUTSIDE RECORDS SUMMARY | 2024-04-18 14:39 | XMS_ITS | Encounter Summary ---
Author Organization [facility] Address [facility] [place] [address] Care Team Providers Care Ham Sawyer Name Role Phone Deborah Quiroga APRN Primary Care Provider Encounter Details Date Type Department Care Team (Late st Contact Info) Description 07/17/2016 9:00 AM EST Office Visit Hematology [place] [address] Markel Borjas MD [facility] [address] [place] [address] Neutropenia, unspecified type Social History Tobacco Use [...] 07/17/2016 9:00 AM EST H[facility]ology [facility] Hematology Outpatient Consult Note CC: [id number] [...] TOUCH PREP, CLOT SECTION, CORE ??BIOPSY); [OSR# [id number], COLLECTED 06/23/2016, 19 SLIDES]: ?1. 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 Labs will be drawn at [facility] next week Imaging As above - [...] leukopenia. Will consi kanwal talking to pt's reliability manager about a switch from ACEI to ARB [...] the original note were not included. N [facility] H[facility] [address] Date: 07/17/16 Patient Name: Purnima Thacker : 1955 Diagnosis: neutropenia Referral to [site]: [facility] Orders: ? Labs: Fax results to . [x] Draw CBC, copper level, CMV PCR, mononucleosis screen on 07/20 Repeat CBC on 07/30 (to measure response of WBC after Neulasta) ? Growth factor: [x] Neulasta 6mg SQ injection x 1 on 07/20/2016 Signature: Markel Borjas MD beeper # [id number] documented in this encounter Plan of Treatment Upcoming Encounters Date Type Department Care Team (Late st Contact Info) Description 05/12/2024 9:00 AM EDT Appointment Hematology [place] [phone] 05/12/2024 10:00 AM EDT Office Visit Hematology [place] [address] Markel Borjas MD [facility] [place] [address] 03/01/2025 4:15 PM EDT Office Visit Dermatology at [address] [place] [address] Marek Bonilla MD [address] [facility] [address], QUOC A DERMATOLOGY [place], [place] [address] documented as of this encounter Results * (ABNORMAL) CBC (with Diff) (07/31/2016 9:40 AM EST) Pathologist [facility] White Blood Cell 2.23(EXTER NAL/ABN) 4.4 - 10.8 EXTERNAL LAB Hemoglobin 12.6 12.0 - 16.0 EXTERNAL LAB Hematocrit 37.7 36.0 - 46.0 EXTERNAL LAB Platelet 167 130 - 400 EXTERNAL LAB Neutrophil Absolute (ANC) - Automated 1.17(EXTER NAL/ABN) 1.2 - 6.7 EXTERNAL LAB Blood specimen (specimen) 07/31/2016 9:40 AM EST Markel Borjas MD HEMATOLOGY ORDERAB LES Performing Organization Address City/[facility]/ZIP Co de Phone Number EXTERNAL LAB * Mononucleosis Screen (07/20/2016 10:30 AM EST) [facility] Mononucleosis Screen neg neg - neg EXTERNAL LAB Blood specimen (specimen) 07/20/2016 10:30 AM EST Markel Borjas MD IMMUNOLOGY ORDERAB LES Performing Organization Address City/[facility]/ZIP Co de Phone Number EXTERNAL LAB * Copper, serum (07/20/2016 10:30 AM EST) Pathologist [facility] Copper (NOVEMBER) 1.09 0.75 - 1.45 EXTERNAL LAB Blood specimen (specimen) 07/20/2016 10:30 AM EST Markel Borjas MD LAB SEND OUT ORDER JODIE Performing Organization Address City/[facility]/ZIP Co de Phone Number EXTERNAL LAB * CMV PCR, Quantitative (07/20/2016 10:30 AM EST) [facility] CMV PCR,Quantitati ve undetected EXTERNAL LAB Blood specimen (specimen) 07/20/2016 10:30 AM EST Markel Borjas MD MOLECULAR ORDERABL ES EXTERNAL LAB * (ABNORMAL) CBC (with Diff) (07/20/2016 10:30 AM EST) White Blood Cell 1.61(A) 4.4 - 10.8 EXTERNAL LAB Hemoglobin 12.3 12.0 - 16.0 EXTERNAL LAB Hematocrit 37.2 36.0 - 46.0 EXTERNAL LAB Platelet 229 130 - 400 EXTERNAL LAB Blood specimen (specimen) 07/20/2016 10:30 AM EST Markel Borjas MD HEMATOLOGY ORDERAB LES Performing Organization Address City/[facility]/[employer] Co de Phone Number EXTERNAL LAB documented in this encounter Visit Diagnoses Diagnosis Neutropenia, unspecified type documented in this encounter Care Teams Ham Sawyer Relationship Specialty Start Date End Date Deborah Quiroga APRN PCP - General Family Medicine 03/24/16 02/04/23 documented as of this encounter
--- OUTSIDE RECORDS SUMMARY | 2024-04-18 14:39 | XMS_ITS | Encounter Summary ---
Author Organization [facility] Address [facility] [place] [address] Care Team Providers Care Marketing Automation Specialist Name Role Phone Deborah Quiroga ANURAG Primary Care Provider [phone] Encounter Details Date Type Department Care Team (Late st Contact Info) Description 09/17/2016 External Results Hematology [place] [address] Alexandrea Greenwood RN Neutropenia, unspecified type Social [...] AM EDT Appointment Hematology [place] [address] 05/12/2024 10:00 AM EDT Office Visit [place]ematology [place] [address] Markel Borjas MD [facility] HEMATOLOGY [place] [address] 03/01/2025 4:15 PM EDT Office Visit Dermatology at [address] [address] Marek Bonilla MD [address], [place] [address] documented as of this encounter Procedures Procedure [...] type documented in this encounter Care Teams Marketing Automation Specialist Relationship Specialty Start Date End Date Deborah Quiroga APRN PCP - General Family Medicine 03/24/16 02/04/23 documented as of this encounter
--- OUTSIDE RECORDS SUMMARY | 2024-04-18 14:39 | XMS_ITS | Encounter Summary ---
[place] [address] Care Team Providers Care Operative Supervisor Name Role Phone Deborah Quiroga ANURAG Primary Care Provider [phone] Encounter Details Date Type Department Care Team (Late st Contact Info) Description 09/11/2016 Orders Only Hematology [place] [address] Alexandrea Greenwood RN Social History [...] the original note were not included. N [facility] HEM ONC [facility] [address] Date: 09/11/16 Patient Name: Purnima Thacker : 1955 Diagnosis: Neutropenia Referral to [site]: [facility] Orders: ? Growth factor: [x] Neulasta 6mg SQ injection x 1 on 09/16/16 Signature: Markel Borjas MD beeper # [id number] Co-signature [if needed]: documented in this encounter Plan of Treatment Upcoming Encounters Date Type Department Care Team (Late st Contact Info) Description 05/12/2024 9:00 AM EDT Appointment Hematology [place] [address] 05/12/2024 10:00 AM EDT Office Visit Hematology [place] [address] Markel Borjas MD [facility] [address] HEMATOLOGY [place] [address] 03/01/2025 4:15 PM EDT Office Visit Dermatology at [place] [address] [facility] [place] [address] Marek Bonilla MD [address], [place] [address] documented as of this encounter Procedures Procedure Name Priority Date/Time Associated Diagnosis Comments TRANSESOPHAGEAL ECHOCARDIOGRAM (GAVINO) Routine 09/22/2016 documented in this encounter Results * Transesophageal Echocardiogram (GAVINO) (09/22/2016) Anatomical Region Laterality Modality Other 09/22/2016 Narrative 09/22/2016 8:30 AM EST Procedure: ?Transesophageal Echocardiogram Patient: ?ANDREW ECHOLS M ? (Age): 1955(61y) Med Rec#: ? [id number] ?Sex: ?M ? Site Loc: ? [facility] ?Ht / Wt: ??(cm)/ (kg) ? Pt. Loc: ?OR ? Study Date: ?? 09/21/2016 ?Pt. Type: Tape: ? Referring: Alirio Francisco Reading: Henrik Yarbrough ([id number]) Metal Fabrication Supervisor: Jacobo Patel ([id number]) Interpreting Fellow: Jaocbo Patel ([id number]) Diagnosis: *Aortic valve disorders (424.1) CPT Codes: *Echo GAVINO Full (51603) Indication: ?? AVR for severe Rhythm: ? [...] ? Mid-Inferior ?Normal ? Mid-Inferoseptal ?Normal ? [place]-Septal ? Normal ? [place]-Anterior ? Normal ? [place]-Lateral ?Normal ? [place]-Inferior ? Normal ? [place]-Tip ?Normal ? This report has been electronically signed by: Henrik Yarbrough M.D. ? 09/22/2016 08:30:41 Images reviewed and interpretation verified [facility] Cardiac Ultrasound Laboratory Procedure Note Henrik Yarbrough MD - 09/22/2016 Procedure: Transesophageal Echocardiogram Patient: ANDREW Mejias (Age): 1955(61y) Med Rec#: [id number] Sex: M Site Loc: [facility] Ht / Wt: (cm)/ (kg) Pt. Loc: OR Study Date: 09/21/2016 Pt. Type: Tape: Referring: Alirio Francisco Reading: Henrik Yarbrough ([id number]) Metal Fabrication Supervisor: Jacobo Patel ([id number]) Interpreting Fellow: Jacobo Patel ([id number]) Diagnosis: *Aortic valve disorders (424.1) CPT Codes: *Echo GAVINO Full (68232) Indication: AVR for severe Rhythm: Sinus SUMMARY: [...] Normal Mid-Posterolateral Normal Mid-Inferior Normal Mid-Inferoseptal Normal [place]-Septal Normal [place]-Anterior Normal [place]-Lateral Normal [place]-Inferior Normal [place]-Tip Normal This report has been electronically signed by: Henrik Yarbrough M.D. 09/22/2016 08:30:41 Images reviewed and interpretation verified [facility] Cardiac Ultrasound Laboratory Unknown ECHO ORDERABLES documented in this encounter Visit Diagnoses Not on filedocumented in this encounter Care Teams Operative Supervisor Relationship Specialty Start Date End Date Deborah Quiroga APRN PCP - General Family Medicine 03/24/16 02/04/23 documented as of this encounter
--- OUTSIDE RECORDS SUMMARY | 2024-04-18 14:39 | XMS_ITS | Encounter Summary ---
[place] [address] Care Team Providers Care Welding Technician Name Role Phone Deborah Quiroga ANURAG Primary Care Provider [phone] Reason for Visit * Reason Onset Date Comments Medical Care Coordination 07/17/2016 Encounter Details Date Type Department Care Team ([facility] Contact Info) Description 07/17/2016 Telephone Hematology [place] [address] Alexandrea Greenwood RN Medical Care Coordination Social [...] 07/17/2016 12:07 PM EST Message received from litigation secretary: Injection/Infusion Referral Call placed to [phone]). Spoke w/ Pasquale. Services to be provided for pt are: Labs @ 10am ([facility]) & Neulasta @ 11am on 07/20/16, CBC only on 07/30/16 Pasquale confirmed they would provide services to pt and I left [facility] for pt to call for appt info. Pt demographics, office note, med list and orders faxed to [facility] & [facility] documented in this encounter Plan of Treatment Upcoming Encounters Date Type Department Care Team (Late st Contact Info) Description 05/12/2024 9:00 AM EDT Appointment Hematology [place] [address] 05/12/2024 10:00 AM EDT Office Visit [place]ematology [place] [address] Markel Borjas MD [facility] [address] HEMATOLOGY [place] [address] 03/01/2025 4:15 PM EDT Office Visit Dermatology at [place] [address] [place] [address] Marek Bonilla MD [address], [place] [address] documented as of this encounter Visit Diagnoses Not on filedocumented in this encounter Care Teams Welding Technician Relationship Specialty Start Date End Date Deborah Quiroga APRN PCP - General Family Medicine 03/24/16 02/04/23 documented as of this encounter
--- OUTSIDE RECORDS SUMMARY | 2024-04-18 14:39 | XMS_ITS | Encounter Summary ---
Author Organization [facility] Address [facility] [place] [address] Care Team Providers Care Veterinarian Laboratory Animal Care Name Role Phone Deborah Quiroga ANURAG Primary Care Provider [phone] Encounter Details Date Type Department Care Team (Late st Contact Info) Description 08/18/2016 Orders [place] [address] Alirio Esparza MD Aortic valve stenosis, unspecified [...] AM EDT Appointment Hematology [place] [address] 05/12/2024 10:00 AM EDT Office Visit Hematology [place] [address] Markel Borjas MD [facility] [address] HEMATOLOGY [place] [address] 03/01/2025 4:15 PM EDT Office Visit Dermatology at [address] [address] Marek Bonilla MD [address], [place] [address] documented as of this encounter Results * Basic Metabolic Panel (non-fasting) (08/18/2016 4:50 PM EST) Glucose 82 65 - 199 mg/dL [facility] Comment:Diabetes: >=200 mg/d L plus symptoms Blood Urea Nitrogen 12 8 - 18 mg/dL [facility] Est Glomerular Filtration Rate >60 >=60 [facility] [...] the following links into your internet browser. [email or web address] Blood specimen (specimen) 08/18/2016 4:50 PM EST 08/18/2016 5:03 PM EST Narrative Resulting Agency Comment Spec In Lab Alirio Esparza MD CHEMISTRY ORDERABLE S [facility] [place] [address] documented in this encounter Visit Diagnoses Diagnosis Aortic valve stenosis, unspecified etiology documented in this encounter Care Teams Veterinarian Laboratory Animal Care Relationship Specialty Start Date End Date Deborah Quiroga, ANURAG PCP - General Family Medicine 03/24/16 02/04/23 documented as of this encounter
--- OUTSIDE RECORDS SUMMARY | 2024-04-18 14:39 | XMS_ITS | Encounter Summary ---
Author Organization [facility] [place] [address] Care Team Providers Care Field Examiner Name Role Phone Deborah Quiroga ANURAG Primary Care Provider [phone] Encounter Details Date Type Department Care Team (Late st Contact Info) Description 06/09/2016 Orders Only Hematology [place] [phone] Nitesh Pina Jr., MD [facility] [address] HEMATOLOGY [place] [address] Cyclical neutropenia Social History Tobacco Use Types [...] AM EDT Appointment Hematology [place] [address] 05/12/2024 10:00 AM EDT Office Visit Hematology [place] [address] Markel Borjas MD [facility] [address] HEMATOLOGY [place] [address] 03/01/2025 4:15 PM EDT Office Visit Dermatology at [place] [address] [place] [address] Marek Bonilla MD [address], [place] [address] documented as of this encounter Results * Immunophenotyping Flow Cytometry (06/09/2016 4:53 PM EST) Immunophenotyping Flow See Comment [facility] Comment: When completed by the Pathologist, the Flow Cytometry Report ([id number]) will display under the Pathology Results section within eDH. Specimen of unknown material (specimen) 06/09/2016 4:53 PM EST 06/09/2016 5:00 PM EST Narrative Resulting Agency Comment Spec In Lab Nitesh iPna Jr., MD HEMATOLOGY ORDERABLE S Performing Organization Address City/State/[facility] Co de Phone Number [facility] [place] [address] documented in this encounter Visit Diagnoses Diagnosis Cyclical neutropenia Cyclic neutropenia documented in this encounter Care Teams Field Examiner Relationship Specialty Start Date End Date Deborah Quiroga, ANURAG PCP - General Family Medicine 03/24/16 02/04/23 documented as of this encounter
--- OUTSIDE RECORDS SUMMARY | 2024-04-18 14:39 | XMS_ITS | Encounter Summary ---
Author Organization [facility] [place] [address] Care Team Providers Care Clinical Orthoptist Name Role Phone Deborah Quiroga ANURAG Primary Care Provider [phone] Encounter Details Date Type Department Care Team (Late st Contact Info) Description 06/16/2016 Orders Only Hematology [place] [phone] Nitesh Pina Jr., MD [facility] [address] HEMATOLOGY [place] [address] Cyclical neutropenia Social History Tobacco Use Types [...] AM EDT Appointment Hematology [place] [phone] 05/12/2024 10:00 AM EDT Office Visit [place]ology [place] [address] [facility] [address] HEMATOLOGY [place] [address] 03/01/2025 4:15 PM EDT Office Visit Dermatology at [place] [address] [place] [address] Marek Bonilla MD [address], [place] [address] documented as of this encounter Visit Diagnoses Diagnosis Cyclical neutropenia Cyclic neutropenia documented in this encounter Care Teams Clinical Orthoptist Relationship Specialty Start Date End Date Deborah Quiroga APRN PCP - General Family Medicine 03/24/16 02/04/23 documented as of this encounter
--- OUTSIDE RECORDS SUMMARY | 2024-04-18 14:39 | XMS_ITS | Encounter Summary ---
[place] [address] Care Team Providers Care Seafood Clerk Name Role Phone Junaid Deborah Shields APRN Primary Care Provider [phone] Reason for Visit * Auth/Cert Specialty Diagnoses / Procedures Referred By Crispin t Referred To Contact Diagnoses Aortic stenosis Procedures PRO REPLACE AORT VALV, PROSTH VALV @REPLACE AORTIC VALVE, OPEN, W\CPB, W\PROSTHETIC VALVE (WRVU 41.32) Referral ID Status Reason Start Date Expiration Date Visits Re quested Visits Authorized [id number] 1 1 Encounter Details Date Type Department Care Team (Late st Contact Info) Description 09/21/2016 7:25 AM EST Anesthesia Event [place] [address] Luis Enrique Quarles MD [facility] [place] [address] Henrik Cooper MD [facility] [place] [address] Anesthesia Record Procedure Summary Procedure Name Responsible [...] 0819 Sternotomy 0844 CV Bypass init 1009 Cigarette Tipper 1014 An Clamp Remove 1031 CP Bypass [...] Tube 09/21/16 (#28 angled chest tube to [place]: left: pericardial); Left; 09/22/16; 1119 09/21/16 0000 by Toshia Alejandre RN 09/22/16 1119 by Vero Bonilla RN Chest Tube 09/21/16 (#28 straig ht chest tube to [place]; right: mediastinal'); Right; mediastinum; 09/22/16; 1118 09/21/16 0000 by Toshia Alejandre RN 09/22/16 1118 by Vero Bonilla RN (RETIRED) Peripheral IV Line - Single Lumen 09/21/16; 0648; metacarpal vein (top of hand), left; [id number] catheter system; 20 gauge; valdo Arteaga; 09/23/16; 1251 09/21/16 0648 by Bhumi Arteaga RN 09/23/16 1251 by Henrik Webb RN (RETIRED) Percutaneous Central Line - Single Lumen 09/21/16; 0730; internal jugular vein, right; Ultrasound Guidance; Yes; 9 Fr; kenneth; YUSRA; CVC Protocol Performed; no longer indicated; 09/22/16; 1205 09/21/16 0730 by Roselien Herrera RN 09/22/16 1205 by Vero Bonilla [...] Cooper MD - 09/21/2016 6:50 PM EST [facility] Department of Anesthesiology Post-procedure Note Patient: Purnima Thacker Procedure Summary Date Anesthesia Start Anesthesia Stop Room / Location 09/21/16 07 1152 [facility] OR 16 / [facility] MAIN OR Procedure Diagnosis Surgeon Responsible Provider @REPLACE AORTIC VALVE, OPEN, W\CPB, W\PROSTHETIC VALVE (WRVU 41.32) (N/A Chest); @AORTOPLASTY FOR SUPRAVALVULAR STENOSIS (WRVU 29.33) (N/A Chest) () Alirio Francisco MD Clark, Jeffrey A, MD All Anesthesia Providers: Anesthesiologist: Luis Enrique Quarles MD Box Shook Patcher: Henrik Cooper MD Last (1hr) Vitals: BP Temp 36.1 ??C (97 ??F) (09/21/16 1800) Pulse 79 (09/21/16 1800) Resp 11 (09/21/16 1800) SpO2 98 % (09/21/16 1800) Patient Location: [facility] Level of Consciousness: Sedated (Pharmacologic/Intentional) [...] AM EDT Appointment Hematology [place] [address] 05/12/2024 10:00 AM EDT Office Visit Hematology [place] [address] Markel Borjas MD [facility] [address] [place] [address] 03/01/2025 4:15 PM EDT Office Visit Dermatology at [place] [address] [place] [address] Marek Bonilla MD [address], [place] [address] documented as of this encounter Visit Diagnoses [...] mg documented in this encounter Care Teams Seafood Clerk Relationship Specialty Start Date End Date Deborah Quiroga APRN PCP - General Family Medicine 03/24/16 02/04/23 documented as of this encounter
--- OUTSIDE RECORDS SUMMARY | 2024-04-18 14:39 | XMS_ITS | Encounter Summary ---
[place] [address] Care Team Providers Care Hotel Maid Name Role Phone Ashley Quirogan Cornelius ANURAG Primary Care Provider [phone] Reason for Visit * Reason Onset Date Comments Medical Care Coordination 09/14/2016 Encounter Details Date Type Department Care Team (Late st Contact Info) Description 09/14/2016 Telephone Hematology [place] [address] Alexandrea [place] RN Medical Care Coordination Social [...] 09/14/2016 9:10 AM EST Message received from admin secretary: Injection/Infusion Referral Call placed to [facility] Infusion Room Spoke charis Bragg. Services to be provided for pt are: [place] 09/16/16 Mahsa confirmed they would provide services to pt and would contact with appointment time. Pt aware to expect the phone call ??orders faxed to [phone]). documented in this encounter Plan of Treatment Upcoming Encounters Date Type Department Care Team (Late st Contact Info) Description 05/12/2024 9:00 AM EDT Appointment Hematology [place] [address] 05/12/2024 10:00 AM EDT Office Visit [place]ematology [place] [address] Markel Borjas MD [facility] [address] HEMATOLOGY [place] [address] 03/01/2025 4:15 PM EDT Office Visit Dermatology at [place] [address] [place] [address] Marek Bonilla MD [address], [place] [address] documented as of this encounter Visit Diagnoses Not on filedocumented in this encounter Care Teams Hotel Maid Relationship Specialty Start Date End Date Deborah Quiroga APRN PCP - General Family Medicine 03/24/16 02/04/23 documented as of this encounter
--- OUTSIDE RECORDS SUMMARY | 2024-04-18 14:39 | XMS_ITS | Encounter Summary ---
Author Organization [facility] Address [facility] [place] [address] Care Team Providers Care Electric Razor Assembler Name Role Phone Deborah Quiroga ANURAG Primary Care Provider [phone] Encounter Details Date Type Department Care Team (Late st Contact Info) Description 07/31/2016 External Results Hematology [place] [address] Alexandrea [place] RN Neutropenia, unspecified type Social [...] AM EDT Appointment Hematology [place] [address] 05/12/2024 10:00 AM EDT Office Visit Hematology [place] [address] Markel Borjas MD [facility] [place] [address] 03/01/2025 4:15 PM EDT Office Visit Dermatology at [address] [address] Marek Bonilla MD [address], [place] [address] documented as of this encounter Procedures Procedure [...] type documented in this encounter Care Teams Electric Razor Assembler Relationship Specialty Start Date End Date Deborah Quiroga APRN PCP - General Family Medicine 03/24/16 02/04/23 documented as of this encounter
--- OUTSIDE RECORDS SUMMARY | 2024-04-18 14:39 | XMS_ITS | Encounter Summary ---
[place] [address] Care Team Providers Care Assistant Production Manager Name Role Phone Deborah Quiroga ANURAG Primary Care Provider [phone] Reason for Visit * Reason Onset Date Comments Medical Care Coordination 07/31/2016 Encounter Details Date Type Department Care Team (Late st Contact Info) Description 07/31/2016 Telephone Hematology [place] [address] Alexandrea [place] RN Medical Care Coordination Social [...] 08/04/15 RN spoke with Aydee of the [facility] lab who states they can draw pt's cbc on 08/04/15, RN faxed lab req to [phone] at Aydee's request. RN instructed pt on Dr. Borjas's direction above. Pt verbalized understanding. documented in this encounter Plan of Treatment Upcoming Encounters Date Type Department Care Team (Late st Contact Info) Description 05/12/2024 9:00 AM EDT Appointment [place]ology [place] [address] 05/12/2024 10:00 AM EDT Office Visit [place] [address] Markel Borjas MD [facility] [address] HEMATOLOGY [place] [address] 03/01/2025 4:15 PM EDT Office Visit Dermatology at [place] [address] [place] [address] Marek Bonilla MD [address], [place] [address] documented as of this encounter Visit Diagnoses Not on filedocumented in this encounter Care Teams Assistant Production Manager Relationship Specialty Start Date End Date Deborah Quiroga, HISTOLOGY AIDE PCP - General Family Medicine 03/24/16 02/04/23 documented as of this encounter
--- OUTSIDE RECORDS SUMMARY | 2024-04-18 14:39 | XMS_ITS | Encounter Summary ---
Author Organization [facility] Address [facility] [place] [address] Care Team Providers Care Hyperbaric Technician Name Role Phone Deborah Quiroga ANURAG Primary Care Provider [phone] Encounter Details Date Type Department Care Team (Late st Contact Info) Description 07/22/2016 External Results Hematology [place] [address] Alexandrea [place] RN Neutropenia, unspecified type Social [...] AM EDT Appointment Hematology [place] [address] 05/12/2024 10:00 AM EDT Office Visit [place]ematology [place] [address] Markel Borjas MD [facility] HEMATOLOGY [place] [address] 03/01/2025 4:15 PM EDT Office Visit Dermatology at [address] [address] Marek Bonilla MD [address], [place] [address] documented as of this encounter Procedures Procedure Name Priority Date/Time Associated Diagnosis Comments COPPER, SERUM Routine 07/20/2016 10:30 AM EST Neutropenia, unspecified type CMV PCR, QUANTITATIVE Routine 07/20/2016 10:30 AM EST Neutropenia, unspecified type MONONUCLEOSIS SCREEN (APD/JEANNINE/[facility]) Routine 07/20/2016 10:30 AM EST Neutropenia, unspecified type CBC (WITH DIFF) Routine 07/20/2016 10:30 AM EST Neutropenia, unspecified type documented in this encounter Results * Copper, serum (07/20/2016 10:30 AM EST) Copper (NOVEMBER) 1.09 0.75 - 1.45 EXTERNAL LAB Blood specimen (specimen) 07/20/2016 10:30 AM EST Markel Borjas MD LAB SEND OUT ORDER JODIE Performing Organization Address City/[facility]/ZIP Co de Phone Number EXTERNAL LAB * CMV PCR, Quantitative (07/20/2016 10:30 AM EST) CMV PCR,Quantitati ve undetected EXTERNAL LAB Blood specimen (specimen) 07/20/2016 10:30 AM EST Markel Borjas MD MOLECULAR ORDERABL ES Performing Organization Address City/[facility]/ZIP Co de Phone Number EXTERNAL LAB * Mononucleosis Screen (07/20/2016 10:30 AM EST) Mononucleosis Screen neg neg - neg EXTERNAL LAB Blood specimen (specimen) 07/20/2016 10:30 AM EST Markel Borjas MD IMMUNOLOGY ORDERAB LES EXTERNAL LAB * (ABNORMAL) CBC [...] type documented in this encounter Care Teams Hyperbaric Technician Relationship Specialty Start Date End Date Deborah Quiroga, STRAIGHT LINE EDGER PCP - General Family Medicine 03/24/16 02/04/23 documented as of this encounter
--- OUTSIDE RECORDS SUMMARY | 2024-04-18 14:39 | XMS_ITS | Encounter Summary ---
[place] [address] Care Team Providers Care Right Of Way Cutter Name Role Phone Ashley Quirogan Cornelius ANURAG Primary Care Provider [phone] Reason for Visit * Reason Onset Date Comments Medication Management 09/14/2016 Encounter Details Date Type Department Care Team (Late st Contact Info) Description 09/14/2016 Telephone Hematology [place] [address] Alexandrea [place], economic manager Management Social History Tobacco Use Types [...] 09/14/2016 9:12 AM EST Message received from board of education secretary: Purnima called, asking for clarification on [...] AM EDT Appointment Hematology [place] [address] 05/12/2024 10:00 AM EDT Office Visit [place]ematology [place] [address] Markel Borjas MD [facility] [address] [place] [address] 03/01/2025 4:15 PM EDT Office Visit Dermatology at [place] [address] [place] [address] Marek Bonilla MD [address], [place] [address] documented as of this encounter Visit Diagnoses Not on filedocumented in this encounter Care Teams Right Of Way Cutter Relationship Specialty Start Date End Date Deborah Quiroga APRN PCP - General Family Medicine 03/24/16 02/04/23 documented as of this encounter
--- OUTSIDE RECORDS SUMMARY | 2024-04-18 14:39 | XMS_ITS | Encounter Summary ---
Author [facility] [place] [address] Care Team Providers Care Fast Food Delivery Driver Name Role Phone Ashley Quirogazac Shields APRN Primary Care Provider [phone] Encounter Details Date Type Department Care Team (Late st Contact Info) Description 07/03/2016 External Results Hematology [place] [address] Matthew Cervantes, DO [address] [place] [address] Social History Tobacco Use Types Packs/Day Years [...] AM EDT Appointment Hematology [place] [address] 05/12/2024 10:00 AM EDT Office Visit Hematology [place] [address] Markel Borjas MD [facility] [address] [place] [address] 03/01/2025 4:15 PM EDT Office Visit Dermatology at [place] [address] [place] [address] Marek Bonilla MD [address], [address] [place] [address] documented as of this encounter Procedures Procedure Name Priority Date/Time Associated Diagnosis Comments BONE MARROW ASPIRATION PERFO RMED WITH BONE MARRROW BIOPSY Routine 06/28/2016 documented in this encounter Results * BONE MARROW ASPIRATION PREFORMED WITH BONE MARRROW BIOPSY (06/28/2016) Matthew Cervantes DO GENERAL SURGI DANIEL ORDERABLES documented in this encounter Visit Diagnoses Not on filedocumented in this encounter Care Teams Fast Food Delivery Driver Relationship Specialty Start Date End Date Deborah Quiroga APRN PCP - General Family Medicine 03/24/16 02/04/23 documented as of this encounter
--- OUTSIDE RECORDS SUMMARY | 2024-04-18 14:39 | XMS_ITS | Encounter Summary ---
[place] [address] Care Team Providers Care Heavy Equipment Engine Mechanic Name Role Phone JunaidDeborah APRN Primary Care Provider [phone] Reason for Visit * Reason Onset Date Comments Labs Only 09/16/2016 Encounter Details Date Type Department Care Team (Late st Contact Info) Description 09/16/2016 Telephone Hematology [place] [address] Alexandrea [place], RN Labs Only Social History [...] 09/16/2016 11:09 AM EST Message received from audio visual secretary: Purnima is having her Neulasta done today at [facility]. ??She is wondering if we want to do a CBC prior to the injection? [phone] Borjas: CBC is fine RN spoke with Swapna at [facility] who confirms they can draw CBC on pt today, RN faxed CBC w/diff to [facility] lab at [phone] RN relayed to pt that CBC ordered had been faxed to [facility], pt will have CBC drawn today prior to neulasta injection. documented in this encounter Plan of Treatment Upcoming Encounters Date Type Department Care Team (Late st Contact Info) Description 05/12/2024 9:00 AM EDT Appointment Hematology [place] [address] 05/12/2024 10:00 AM EDT Office Visit Hematology [place] [address] Markel Borjas MD [facility] [address] HEMATOLOGY [place] [address] 03/01/2025 4:15 PM EDT Office Visit Dermatology at [place] [address] [place] [phone] Marek Bonilla MD [address] [facility] [facility] [address] documented as of this encounter [...] type documented in this encounter Care Teams Heavy Equipment Engine Mechanic Relationship Specialty Start Date End Date Deborah Quiroga APRN PCP - General Family Medicine 03/24/16 02/04/23 documented as of this encounter
--- OUTSIDE RECORDS SUMMARY | 2024-04-18 14:39 | XMS_ITS | Encounter Summary ---
Author Organization [facility] Address [facility] [place] [address] Care Team Providers Care Floor Molder Name Role Phone Junaid Deborah Shields APRN Primary Care Provider [phone] Encounter Details Date Type Department Care Team (Latest Contact Info) Description 06/19/2016 - 06/19/2016 11:59 PM EST Hospital Encounter Radiology Library at [facility] [place] [address] Nitesh Pina Jr., MD [facility] [place] [address] Pain Discharge Disposition: Home Social History Tobacco [...] Appointment Hematology [place] [address] 05/12/2024 10:00 AM EDT Office Visit Hematology [place] [address] Markel Borjas MD [facility] DR [place] [address] 03/01/2025 4:15 PM EDT Office Visit Dermatology at [place] [address] [place] [address] Marek Bonilla MD [address] [facility], [place] [address] documented as of this encounter Procedures Procedure Name Priority Date/Time Associated Diagnosis Comments FILM LIBRARY STORAGE ONLY CT CHEST ABDOMEN PELVIS Routine 06/19/2016 12:00 AM EST Pain documented in this encounter Results * Film Library- Storage Only CT Chest Abdomen Pelvis (06/19/2016 12:00 AM EST) Narrative [facility] - 06/20/2016 8:53 AM EST This exam is for storage only and is auto-finalizing. Nitesh Pina Jr., MD IMG FILM LIBRARY ORD ERABLES [place], [place] documented in this encounter Visit Diagnoses Diagnosis Pain Generalized pain documented in this encounter Care Teams Floor Molder Relationship Specialty Start Date End Date Deborah Quiroga, CHEMICAL DEPENDENCY COUNSELOR PCP - General Family Medicine 03/24/16 02/04/23 documented as of this encounter
--- OUTSIDE RECORDS SUMMARY | 2024-04-18 14:39 | XMS_ITS | Encounter Summary ---
[place] [address] Care Team Providers Care Financial Systems Director Name Role Phone Ashley Quirogazac Shields APRN Primary Care Provider [phone] Reason for Visit * Auth/Cert Specialty Diagnoses / Procedures Referred By Crispin t Referred To Contact Diagnoses Aortic stenosis Procedures PRO REPLACE AORT VALV, PROSTH VALV @REPLACE AORTIC VALVE, OPEN, W\CPB, W\PROSTHETIC VALVE (WRVU 41.32) Referral ID Status Reason Start Date Expiration Date Visits Re quested Visits Authorized [id number] 1 1 Encounter Details Date Type Department Care Team (Late st Contact Info) Description 09/21/2016 7:30 AM EST - 09/21/2016 12:04 PM EST Surgery [place] [address] Alirio Esparza MD @REPLACE AORTIC VALVE, OPEN, [...] Patient Age: 61 y.o. Birthdate: 1955 Language: Ukrainian Race: White Ethnicity: Not nor Admit Date: 09/21/2016 Discharge Date: 09/25/2016 Attending Physician: Alirio Esparza MD Follow-up Recommendations for Providers: Please continue routine management of cardiovascular risk factors including blood pressure, lipids,glucose, etc. Please note any changes to medications. Patient to follow-up with PCP, Deborah Quiroga APRN, in 1-2 weeks. Patient to follow-up with Deposit Clerk, Dr. Antelmo Burrell, in two weeks. Patient to follow-up with Cardiac Surgery, Dr. Alirio Esparza, to be scheduled for before 10/19/2016, with CXR, EKG, and Echo. Inpatient Provider Contact Information: [facility] Section of Cardiac Surgery [facility] [address] FAX [phone] Discharge Diagnoses (Hospital Problems) Primary Diagnoses: Secondary [...] 41.32) performed by Alirio Esparza MD at [facility] MAIN OR ??? Pro aortoplas for supravalv sten N/A 09/21/2016 @AORTOPLASTY FOR SUPRAVALVULAR STENOSIS (WRVU 29.33) performed by Alirio Esparza MD at [facility] MAIN OR Prior To Admission [...] Hospital Course: Purnima Thacker was admitted to [facility] on 09/21/2016 via the Same Day [...] Alirio Esparza and/or the Cardiac Surgery Physician Learning Disabled Teacher Team may be reached at . Antibiotic prophylaxis: You will need to take antibiotics prior to many invasive tests and treatments, such as dental cleaning, which should be done every 6 months. Your primary care physician or your dentist can prescribe this medication. Please refer to the card with the [place] [employer] Guidelines for more information. You have been provided with 3 copies of this card. Keep one for your self. Give one to your primary care physician and one to your dentist. Please refer to the [place] [employer] Guidelines for more information. Good [...] Dr. Alirio Jones. You may use a [place] Track or treadmill but avoid any pulling [...] should resume a low fat, low cholesterol, [place] [employer] Diet. Driving: No driving until [...] 2 Cardiac Rehabilitation at [facility]. The patient agrees to a referral to this program. The referral will be sent at discharge and the patient should be contacted by the program within 1- 2 weeks from discharge. Future Appointments and Orders Future Appointments Provider Department Dept Phone 11/20/2016 11:30 AM Markel Borjas MD [facility] [phone] Future Orders Complete By Expires Echocardiogram Transthoracic([facility]) [BGR273 Custom] 10/18/2016 (Approximate) 09/18/2017 Process Instructions: If the Echocardiogram is to be PERFORMED in a DH location other than [place]--STOP and order [id number], Echocardiogram South/External. Scheduling Instructions: Questions: Is a Bubble Study requested?: No Does the patient have Congenital Heart Disease?: No Does patient require sedation?: None GA rationale: Should this service be billed to the research sponsor?: EKG 12 Lead [EKG1 Custom] 10/18/2016 (Approximate) 09/25/2017 Process Instructions: Scheduling Instructions: Questions: Which DH location will this be performed?: [place] Is a rhythm strip needed?: No If EKG Reason is Pre-op Evaluation, indicate diagnosis for surgery.: Should this service be billed to the research sponsor?: XR Chest PA & Lateral (Generic) [[id number] Custom] 10/18/2016 (Approximate) 09/25/2017 Process Instructions: Scheduling Instructions: Questions: Where will study be performed?: [facility]- Radiology Portable exam?: No Reason for exam and clinical history: s/p AVReplacement, patch annuloplasty 1 month f/u Other pertinent information: Stat read required?: Date of injury if applicable: Requested Time: Referral to Cardiac Rehab [ZMW511 Custom] As directed Process Instructions: If no progress note charted, please enter Clinical details in comments. Scheduling Instructions: Questions: My question or request is: s/p AVR. Cardiac rehab at [facility] Referral to Home Health - at DISCHARGE [PTE2945 CPT(R)] As directed Process Instructions: Scheduling Instructions: Comments: DOCUMENTATION FOR VNA SERVICES (INCLUDING THOSE PATIENTS WITH MEDICARE COVERAGE REQUIRING HOME VNA SERVICES AND/OR HOSPICE SERVICES) PATIENT'S LOCATION: Purnimakary Galleg[address] [address] (home) No relevant phone numbers on file. Personal Lines Insurance Advisor's Name: self In discussion with the attending physician, it is certified that this patient is under their care and that they, or a Nurse Practitioner, or Physician Learning Disabled Teacher who is working directly with them, hada [...] for services as follows: HOME HEALTH AGENCY: [facility] PHONE: [phone] FAX: [phone] RN orders: Cardiopulmonary assessment, incisional assessment, assess [...] issues please call the Cardiac SurgeryOffice at [phone] FOR MEDICARE ONLY: In discussion with the [...] name and contact information: [facility] Patient location post discharge: home What services are requested: Registered Nurse Physical Therapy Occupational Therapy Start date: Responsible MD post discharge contact info: Arrangements for VNA/home care: As above. VN RN OR PCP TO PLEASE REMOVE CHEST TUBE SUTURES ON OR AFTER 09/30/16 Signed: Crispin Aranda PA-C 09/25/[address] [facility] Section of Cardiac Surgery [facility] [address] FAX [phone] Date: 09/25/2016 CC: ANURAG Alford Caryn E, APRN [address] [place] [address] documented in this encounter Discharge Instructions * [...] from your chest incision. Your surgeon, Dr. Alriio Esparza and/or the Cardiac Surgery Physician Learning Disabled Teacher Team may be reached at . Antibiotic prophylaxis: You will need to take antibiotics prior to many invasive tests and treatments, such as dental cleaning, which should be done every 6 months. Your primary care physician or your dentist can prescribe this medication. Please refer to the card with the [place] [employer] Guidelines for more information. You have been provided with 3 copies of this card. Keep one for your self. Give one to your primary care physician and one to your dentist. Please refer to the [place] [employer] Guidelines for more information. Good [...] Dr. Alirio Jones. You may use a [place] Track or treadmill but avoid any pulling [...] should resume a low fat, low cholesterol, [place] [employer] Diet. Driving: No driving until [...] 2 Cardiac Rehabilitation at [facility]. The patient agrees to a referral to [...] PM EST Cardiac Surgery Progress Note: ID: [id number] S/p AVR, patch aortoplasty POD#2. PMH of [...] Gas) No results found for: PHART, PO2ART, [id number] Assessment/Plan: TPW out this am. (+) BM. [...] Signed: Crispin Aranda PA-C 09/24/2016 Team pager: [phone] after 5pm [facility] Section of Cardiac Surgery * Leonor Henson S, LIMITED RADIOLOGY TECHNICIAN - 09/23/2016 10:48 AM EST Cardiac Surgery Progress Note: ID: [id number] s/p AVR, patch aortoplasty POD#2. PMH of [...] Gas) No results found for: PHART, PO2ART, PUJ1STI Assessment/Plan: s/p AVR, patch aortoplasty POD#2. PMH [...] Surgeon on rounds. Signed: Leonor Henson APRN [facility] Section of Cardiac Surgery Date: 09/23/2016 * Nico Palacios PA - 09/22/2016 9:56 AM EST Cardiac Surgery Progress Note: ID: [id number] s/p AVR, patch aortoplasty POD#1. PMH of [...] NT, ND, soft. Ext: Moves all extremities. [place], well perfused. Incisions: C/D/I Tubes/Lines/Drains: PIV, leanna, [...] Attending Surgeon on rounds. Signed: EKATERINA KIM [facility] Section of Cardiac Surgery Date: 09/22/2016 [...] Outcome (s) achieved Date Met: 09/25/16 09/25/16 0815 Coping/Psychosocial Plan Of Care Reviewed With patient [...] health, home with outpatient services Lalitha Cohen [facility] Pager: [phone] Inpatient Physical Therapy Patient status, treatment interventions, and goals discussed with student. I am in agreement with all details and associated flowsheet rows as documented and was present for all aspects of the patient treatment session. Nery Jaramillo, CANDY Pager [phone] Problem: Acute Rehab Services Goal & Intervention Plan Goal: Bed Mobility Goal Stand Alone Therapy Goal Outcome: Ongoing (Interventions Implemented as Appropriate) 09/22/16 1611 09/25/16 0947 Bed Mobility Goal Bed Mobility Goal, Time to Achieve 4 days -- Bed Mobility Goal, Activity Type scoot/bridge;supine to sit/sit to supine -- Bed Mobility Goal, Taylor Level independent -- Bed Mobility Goal, Additional [...] Achieve 4 days -- Gait Training Goal, Taylor Level independent -- Gait Training Goal, Distance [...] assist, home with home health Lalitha Cohen [facility] Pager: [phone] Inpatient Physical Therapy Patient status, treatment interventions, and goals discussed with student. I am in agreement with all details and associated flowsheet rows as documented and was present for all aspects of the patient treatment session. Nery Jaramillo, VITICULTURIST Pager [phone] Problem: Acute Rehab Services Goal & Intervention Plan Goal: Bed Mobility Goal Stand Alone Therapy Goal Outcome: Ongoing (Interventions Implemented as Appropriate) 09/22/16161009/23/161411 Bed Mobility Goal Bed Mobility Goal, Time to Achieve 4 days -- Bed Mobility Goal, Activity Type scoot/bridge;supine to sit/sit to supine -- Bed Mobility Goal, Taylor Level independent -- Bed Mobility Goal, Additional [...] Achieve 4 days -- Gait Training Goal, Taylor Level independent -- Gait Training Goal, Distance [...] days -- Transfer Training Goal, Activity Type woa-hr-owrrb/oiukg-hi-qgv;lax-pl-igqsv/swxvk-es-jrq -- Transfer Train Goal, Taylor Level independent -- Transfer Training Goal, Additional Goal abides sternal precautions -- Transfer Training Goal, Outcome -- goal met * Consult Note - Jana Crenshaw RN - 09/23/2016 9:41 AM EST [facility] CARDIAC REHABILITATION Purnima Thacker was seen today regarding participation in the outpatient Phase 2 Cardiac Rehabilitation at [facility]. The patient agrees to a referral to [...] Another Service: (cardiac rehab) NICOLE HERNANDEZ, PT Pager:[phone] Inpatient Physical Therapy Problem: Acute Rehab Services Goal & Intervention Plan Goal: Bed Mobility Goal Stand Alone Therapy Goal Outcome: Ongoing (Interventions Implemented as Appropriate) 09/22/161610 Bed Mobility Goal Bed Mobility Goal, Time to Achieve 4 days Bed Mobility Goal, Activity Type scoot/bridge;supine to sit/sit to supine Bed Mobility Goal, Taylor Level independent Bed Mobility Goal, Additional Goal able to abide sternal precautions during transfers Goal: Gait Training Goal Stand Alone Therapy Goal Outcome: Ongoing (Interventions Implemented as Appropriate) 09/22/161610 Gait Training Goal Gait Training Goal, Date Established 09/22/16 Gait Training Goal, Time to Achieve 4 days Gait Training Goal, Taylor Level independent Gait Training Goal, Distance to Achieve ascend and descends 2 steps independently Goal: Goal Transfer Training Stand Alone Therapy Goal Outcome: Ongoing (Interventions Implemented as Appropriate) 09/22/161610 Goal Transfer Training Transfer Training Goal, Time to Achieve 4 days Transfer Training Goal, Activity Type ttk-re-ajivc/gntxj-ct-ytf;jdp-mw-uccqe/wsbdb-gj-hdh Transfer Train Goal, Taylor Level independent Transfer Training Goal, Additional Goal [...] of completing AD's at home, chooses her rrzvgf-rh-fky, Martha Thacker (home) for her DPOAH, 2nd choice in friend, Nitesh Rad, [place], [place] Current Coping/Education/Information Needs: patient sitting up [...] close by, Rashad & Raymond, and her hcszhb-dc-pcn Martha Thacker who she has chosen to be her DPOAH. Also has a friend Nitesh Leroy who lives in [place], [place], also her DPOAH choice. Behavioral Health History: none on file in eDH Substance Use/Abuse: none on file in e[facility] Other Pertinent/Service Specific Information: none Health/Prescription Coverage: Primary Insurance: [employer] Secondary Insurance: none Prescription Coverage: yes, per patient no issues Preferred Pharmacy: ?? Other: none Primary Care Provider: Deborah Quiroga, LIMITED RADIOLOGY TECHNICIAN [phone] Patient/Caregiver Goals of Treatment: per medical team recommendations at discharge for CT surgery Potential Needs for Transition of Care: Rehab/SNF: TBD Home Health: TBD DME: no Dialysis: no Community Resources: non3 Transportation: ride home with a friend Other: none Anticipated Barriers to Discharge/Special Considerations: none anticipated at this time Plan: patient will need VNA services at discharge. The patient/pharmaceutical sales representative has been provided a list of Home Health Agencies/DME vendors which servetheir preferred geographic area. A letter describing our affiliations was reviewed with them and they were educated about their right to choose where referrals are placed. Patient requests referral to: [facility] [employer]. PHONE: [phone] FAX: [phone] Expected date of discharge: Fri/Sat? CM called VNA to confirm referral, talked with VALDO Bunn/intake who stated she was familiar w/patient & would monitor her progress through curaspan. Referral routed to the Legal Billing Analyst for matching with agency/vendor and to provide any required information. A member of the Care Management team will continue to monitor progress, follow for continuity of care and assist with transition of care planning. Amanda Moreno RN Pager: [phone] * Op Note - Alirio Esparza MD - 09/21/2016 12:53 PM EST 09/23/2016 Purnima Thacker 1955 [id number] Preoperative Diagnosis: Symptomatic aortic stenosis Postoperative Diagnosis: Symptomatic aortic stenosis Procedure: Aortic valve replacement: Bovine Pericardial 25 mm Surgeon: Alirio Esparza M.D. Learning Disabled Teacher: Philip BALL Anesthesia: General endotracheal anesthesia Drains: [...] Operative Note Patient Name: Purnima Thacker : [id number] MR#: [id number] Case Date: 09/21/2016 Surgeon: Surgeon(s) and Role: * Alirio Esparza MD - Primary * Nico Palacios PA - Physician Learning Disabled Teacher Preoperative diagnosis: Postoperative diagnosis: Procedure(s) (LRB): @REPLACE [...] AM EDT Appointment [place] [address] 05/12/2024 10:00 AM EDT Office Visit [place] [address] Markel Borjas MD [facility] [address] [place] [address] 03/01/2025 4:15 PM EDT Office Visit Dermatology at [facility] [address] [place] [address] Marek Bonilla MD [address], [place] [address] Scheduled Orders Name Type Priority Associated Diagnoses [...] IMPLANTABLE DEVICES SCAN 09/26/2016 12:00 AM EST COORDINATE MEASURING MACHINE OPERATOR SCAN 09/26/2016 12:00 AM EST POTASSIUM [...] SCAN EXT O RDR/RSLT * SCAN DOC: COORDINATE MEASURING MACHINE OPERATOR (09/26/2016 12:00 AM EST) Anatomical Region Laterality Modality Other Narrative 09/26/2016 12:00 AM EST Ordered by an unspecified provider. Scanning Provider MEDIA MGR SCAN EXT O RDR/RSLT * Potassium (09/25/2016 4:32 AM EST) Potassium 4.4 3.5 - 5.0 mmol/L [facility] [...] MD CHEMISTRY ORDERABLE S [facility] [place] [address] * (ABNORMAL) Differential, Automated (09/24/2016 9:56 AM EST) Pathologist [facility] Neutrophil % 76.8 % [facility] Neutrophil Absolute 7.79(H) 1.70 - 6.10 x10(3)/mc L [facility] Lymph % 11.1 % [facility] Lymphocytes Abs 1.1 0.9 - 3.2 x10(3)/mc L [facility] Monocyte % 8.5 % [facility] Monocyte Abs 0.9 0.3 - 0.9 x10(3)/mc L [facility] Eos % 0.5 % [facility] Eosinophils Abs 0.0 0.0 - 0.4 x10(3)/mc L [facility] Basophil % 0.2 % [facility] Baso Absolute 0.0 0.0 - 0.1 x10(3)/mc L [facility] Immature Gran % 2.90 % [facility] Comment: Immature granulocytes(IG's)percentage and absolute count will include metamyelocytes, myelocytes, and promyelocytes. Blood smears from CBCs yielding IG's will be scanned manually for concordance. If this scan disagrees with the automated IG or if promyelocytes are noted, a manual differential will be performed. Immature Gran Absolute 0.29(H) 0.00 - 0.04 x10(3)/mc L [facility] Blood specimen (specimen) 09/24/2016 9:56 AM EST 09/24/2016 10:04 AM EST Narrative Resulting Agency Comment Spec In Lab Alirio Esparza MD HEMATOLOGY ORDERABL ES [facility] [place] [address] * (ABNORMAL) Hemogram (09/24/2016 9:56 AM EST) White Blood Cell 10.1(H) 4.0 - 9.5 x10(3)/mc L [facility] Red Blood Cell 2.87(L) 4.00 - 5.21 x10(6)/mc L [facility] Hemoglobin 9.4(L) 11.7 - 15.5 gm/dL [facility] Hematocrit 28.3(L) 35.7 - 45.8 % [facility] Mean Cell Volume 98.6(H) 82.6 - 94.4 fL [facility] Mean Cell Hemoglobin 32.8(H) 27.1 - 32.0 pg [facility] Mean Cell Hemoglobin Concentration 33.2 31.7 - 35.0 gm/dL [facility] Platelet 141(L) 145 - 357 x10(3)/mc L [facility] RDW Standard Deviation 45.0 37.0 - 46.0 fL [facility] RDW coefficient of variation 12.6 11.5 - 14.1 % [facility] Mean Platelet Volume 9.4 7.6 - 12.9 fL [facility] NRBC% auto 1.1 % [facility] NRBC Absolute 0.110(H) 0.000 - 0.000 x10(3)/mc L [facility] Blood specimen (specimen) 09/24/2016 9:56 AM EST 09/24/2016 10:04 AM EST Narrative Resulting Agency Comment Spec In Lab Alirio Esparza MD HEMATOLOGY ORDERABL ES [facility] [place] [address] * (ABNORMAL) Basic Metabolic Panel (non-fasting) (09/24/2016 9:56 AM EST) Glucose 111 65 - 199 mg/dL [facility] Comment:Diabetes: >=200 mg/d L plus symptoms Blood Urea Nitrogen 23(H) 8 - 18 mg/dL [facility] Comment:result rechecked-ART Creatinine 0.89 0.70 - 1.20 mg/dL [facility] Comment: Please note that the pediatric reference intervals supplied above were not validated at [facility]. Results from pediatric patients should be interpreted in conjunction to the patient's age, height and muscle mass. Sodium 138 135 - 145 mmol/L [facility] Potassium 4.2 3.5 - 5.0 mmol/L [facility] Comment: Please note: ??Patients with WBC >100,000 may have falsely elevated Potassium levels. ??For accurate Potassium quantification in these patients send serum separator tube (gold top) for subsequent determinations. ??Contact the Clinical Chemistry Laboratory if there are any questions. Chloride 98 98 - 107 mmol/L [facility] Carbon Dioxide 26 22 - 31 mmol/L [facility] Anion Gap 14 5 - 15 mmol/L [facility] Calcium 9.1 8.5 - 10.5 mg/dL [facility] Est Glomerular Filtration Rate >60 [...] the following links into your internet browser. [email or web address] Blood specimen (specimen) 09/24/2016 9:56 AM EST 09/24/2016 10:04 AM EST Narrative Resulting Agency Comment Spec In Lab Alirio Esparza MD CHEMISTRY ORDERABLE S [facility] [place] [address] * XR Chest PA & Lateral (Generic) [...] EST) Potassium 4.5 3.5 - 5.0 mmol/L [facility] [...] MD CHEMISTRY ORDERABLE S [facility] [place] [address] * POCT Glucose (09/22/2016 8:17 AM EST) Glucose, POC 131 65 - 199 mg/dL [facility] Comment: Supplemental ranges: <140 mg/dL before meals <180 mg/dL all other times of the day Blood specimen (specimen) 09/22/2016 8:17 AM EST 09/22/2016 8:17 AM EST Alirio Esparza MD POINT OF CARE TEST ORDERABLES [facility] [place] [address] * POCT Glucose (09/22/2016 4:01 AM EST) Glucose, POC 135 65 - 199 mg/dL [facility] Comment: Supplemental ranges: <140 mg/dL before meals <180 mg/dL all other times of the day Blood specimen (specimen) 09/22/2016 4:01 AM EST 09/22/2016 4:01 AM EST Alirio Esparza MD POINT OF CARE TEST ORDERABLES [facility] [place] [address] * Scan, Peripheral Blood (09/22/2016 4:00 AM EST) Plat estimate Normal [facility] RBC Morphology Abnormal [facility] Macrocyte 1-5 /HPF [facility] Plat, Giant Less than 1 /HPF [facility] Blood specimen (specimen) 09/22/2016 4:00 AM EST 09/22/2016 4:34 AM EST Narrative Resulting Agency Comment Spec In Lab Alirio Esparza MD HEMATOLOGY ORDERABL ES Performing Organization Address [facility]/ZIP Co de Phone Number [facility] [place] [address] * Electrolytes panel (09/22/2016 4:00 AM EST) Pathologist [facility] Sodium 145 135 - 145 mmol/L [facility] Potassium 4.4 3.5 - 5.0 mmol/L [facility] Comment: Please note: ??Patients with WBC >100,000 may have falsely elevated Potassium levels. ??For accurate Potassium quantification in these patients send serum separator tube (gold top) for subsequent determinations. ??Contact the Clinical Chemistry Laboratory if there are any questions. Chloride 107 98 - 107 mmol/L [facility] Carbon Dioxide 24 22 - 31 mmol/L [facility] Anion Gap 14 5 - 15 mmol/L [facility] Blood specimen (specimen) Venous Draw / Unknown 09/22/2016 4:00 AM EST 09/22/2016 4:34 AM EST Narrative Resulting Agency Comment Spec In Lab Alirio Esparza MD CHEMISTRY ORDERABLE S Performing Organization Address City/[facility]/ZIP Co de Phone Number [facility] [place] [address] * (ABNORMAL) Differential, Automated (09/22/2016 4:00 AM EST) Neutrophil % 70.9 % [facility] Neutrophil Absolute 5.33 1.70 - 6.10 x10(3)/mc L [facility] Lymph % 9.1 % [facility] Lymphocytes Abs 0.7(L) 0.9 - 3.2 x10(3)/[facility] Monocyte % 18.0 % [facility] Monocyte Abs 1.4(H) 0.3 - 0.9 x10(3)/[facility] Eos % 0.0 % [facility] Eosinophils Abs 0.0 0.0 - 0.4 x10(3)/[facility] Basophil % 0.1 % [facility] Baso Absolute 0.0 0.0 - 0.1 x10(3)/[facility] Immature Gran % 1.90 % [facility] Comment: Immature granulocytes(IG's)percentage and absolute count will include metamyelocytes, myelocytes, and promyelocytes. Blood smears from CBCs yielding IG's will be scanned manually for concordance. If this scan disagrees with the automated IG or if promyelocytes are noted, a manual differential will be performed. Immature Gran Absolute 0.14(H) 0.00 - 0.04 x10(3)/[facility] LABORATORY Blood specimen (specimen) 09/22/2016 4:00 AM EST 09/22/2016 4:34 AM EST Narrative Resulting Agency Comment Spec In Lab Alirio Esparza MD HEMATOLOGY ORDERABL ES [facility] [place] [address] * (ABNORMAL) Hemogram (09/22/2016 4:00 AM EST) White Blood Cell 7.5 4.0 - 9.5 x10(3)/[facility] LABORATORY Red Blood Cell 2.93(L) 4.00 - 5.21 x10(6)/[facility] LABORATORY Hemoglobin 9.2(L) 11.7 - 15.5 gm/dL [facility] Hematocrit 28.0(L) 35.7 - 45.8 % [facility] Mean Cell Volume 95.6(H) 82.6 - 94.4 fL [facility] Mean Cell Hemoglobin 31.4 27.1 - 32.0 pg [facility] Mean Cell Hemoglobin Concentration 32.9 31.7 - 35.0 gm/dL [facility] Platelet 161 145 - 357 x10(3)/mc L [facility] RDW Standard Deviation 44.0 37.0 - 46.0 fL [facility] RDW coefficient of variation 12.6 11.5 - 14.1 % [facility] Mean Platelet Volume 9.3 7.6 - 12.9 fL [facility] NRBC% auto 0.3 % [facility] NRBC Absolute 0.020(H) 0.000 - 0.000 x10(3)/mc L [facility] Blood specimen (specimen) 09/22/2016 4:00 AM EST 09/22/2016 4:34 AM EST Narrative Resulting Agency Comment Spec In Lab Alirio Esparza MD HEMATOLOGY ORDERABL ES Performing Organization Address City/State/[facility] Co de Phone Number [facility] [place] [address] * (ABNORMAL) Cardiac Enzymes (09/22/2016 4:00 AM EST) Troponin-T 0.13(H) <=0.03 ng/mL [facility] Comment: 0.03 ng/mL: Represents the [...] consensus document of the Joint Society of Cardiology/[place] [employer] Committee for the redefinition of myocardial infarction. ??Journal of the [place] [employer] 2000; 36: 959-969] Creatine Kinase 338(H) 0 - 160 unit/L [facility] Blood specimen (specimen) 09/22/2016 4:00 AM EST 09/22/2016 4:34 AM EST Narrative Resulting Agency Comment Spec In Lab Alirio Esparza MD CHEMISTRY ORDERABLE S Performing Organization Address [facility] de Phone Number [facility] [place] [address] * (ABNORMAL) Glucose, fasting (09/22/2016 4:00 AM EST) Glucose Fasting 137(H) 65 - 99 mg/dL [facility] Comment: ?Fasting* Glucose Interpretive Criteria [...] of Diabetes Mellitus, Position Statement from the [place] [employer] Association. ??Diabetes Care, Volume 33, Supplement 1, Aug 2009 Blood specimen (specimen) 09/22/2016 4:00 AM EST 09/22/2016 4:34 AM EST Narrative Resulting Agency Comment Spec In Lab Alirio Esparza MD CHEMISTRY ORDERABLE S Performing Organization Address [facility] Co de Phone Number [facility] [place] [address] * (ABNORMAL) Creatinine (09/22/2016 4:00 AM EST) [facility] Creatinine 0.69(L) 0.70 - 1.20 mg/dL [facility] Comment: Please note that the pediatric reference intervals supplied above were not validated at [facility]. Results from pediatric [...] the following links into your internet browser. [email or web address] Blood specimen (specimen) 09/22/2016 4:00 AM EST 09/22/2016 4:34 AM EST Narrative Resulting Agency Comment Spec In Lab Alirio Esparza MD CHEMISTRY ORDERABLE S Performing Organization Address City/[facility] Co de Phone Number [facility] [place] [address] * BUN (09/22/2016 4:00 AM EST) [facility] Blood Urea Nitrogen 10 8 - 18 mg/dL [facility] Blood specimen (specimen) 09/22/2016 4:00 AM EST 09/22/2016 4:34 AM EST Narrative Resulting Agency Comment Spec In Lab Alirio Esparza MD CHEMISTRY ORDERABLE S Performing Organization Address [facility]/ZIP Co de Phone Number [facility] [place] [address] * POCT Glucose (09/21/2016 9:59 PM EST) Glucose, POC 146 65 - 199 mg/dL [facility] Comment: Supplemental ranges: <140 mg/dL before meals <180 mg/dL all other times of the day Blood specimen (specimen) 09/21/2016 9:59 PM EST 09/21/2016 9:59 PM EST Alirio Esparza MD POINT OF CARE TEST ORDERABLES Performing Organization Address City/[facility]/ZIP Co de Phone Number [facility] [place] [address] * POCT Glucose (09/21/2016 7:26 PM EST) Glucose, POC 152 65 - 199 mg/dL [facility] Comment: Supplemental ranges: <140 mg/dL before meals <180 mg/dL all other times of the day Blood specimen (specimen) 09/21/2016 7:26 PM EST 09/21/2016 7:26 PM EST Alirio Esparza MD POINT OF CARE TEST ORDERABLES Performing Organization Address [facility] Co de Phone Number [facility] [place] [address] * POCT Glucose (09/21/2016 6:00 PM EST) Glucose, POC 146 65 - 199 mg/dL [facility] Comment: Supplemental ranges: <140 mg/dL before meals <180 mg/dL all other times of the day Blood specimen (specimen) 09/21/2016 6:00 PM EST 09/21/2016 6:00 PM EST Alirio Esparza MD POINT OF CARE TEST ORDERABLES Performing Organization Address City/[facility] Co de Phone Number [facility] [place] [address] * (ABNORMAL) BLOOD GAS 2 ARTERIAL (09/21/2016 4:42 PM EST) [facility] pH, Arterial 7.35(L) 7.35 - 7.45 [facility] PCO2, Arterial 48(H) 35 - 45 mmHg [facility] PO2, Arterial 108(H) 85 - 104 mmHg [facility] Bicarbonate, Arterial 26.0 20.0 - 26.0 mmol/L [place] [facility] Excess, Arterial 0.5 -3.0 - 3.0 mmol/L [facility] Hgb Blood Gas 10.4(L) 11.7 - 15.5 gm/dL [facility] Oxyhemoglobin, Arterial 96.2 94.0 - 97.0 % [facility] Carboxyhemoglob in, Arterial 0.0 % [facility] Comment: Nonsmokers: 0.5-1.5% COHB Smokers: Variable, but usually less than 10% Toxic: 20-30% COHB Lethal: Greater than 60% COHB Methemoglobin, Arterial 0.7 <=1.5 % [facility] Na Whole Blood 139 135 - 145 mmol/L [facility] K Whole Blood 4.2 3.5 - 5.0 mmol/L [facility] Comment: Please note: Patients with WBC >100,000 may have falsely elevated Potassium levels. Contact the Clinical Chemistry Laboratory if there are any questions. ICa Whole Blood 1.13(L) 1.15 - 1.33 mmol/L [facility] Comment: Note: ??Total bilirubin higher than 20 mg/dL may lead to falsely low ionized calcium. CL Whole Blood 106 98 - 107 mmol/L [facility] Gluc Whole Bld 147 65 - 199 mg/dL [facility] Comment:Diabetes: >=200 mg/d L plus symptoms. Lactate WB 1.2 0.5 - 2.2 mmol/L [facility] FIO2 Art 40 % [facility] PF Ratio Art 270 [facility] Blood specimen (specimen) 09/21/2016 4:42 PM EST 09/21/2016 4:42 PM EST Alirio Esparza MD POINT OF CARE TEST ORDERABLES Performing Organization Address [facility] Co de Phone Number [facility] [place] [address] * POCT Glucose (09/21/2016 4:07 PM EST) Pathologist [facility] Glucose, POC 150 65 - 199 mg/dL [facility] Comment: Supplemental ranges: <140 mg/dL before meals <180 mg/dL all other times of the day Blood specimen (specimen) 09/21/2016 4:07 PM EST 09/21/2016 4:07 PM EST Alirio Esparza MD POINT OF CARE TEST ORDERABLES Performing Organization Address [facility] de Phone Number [facility] [place] [address] * (ABNORMAL) Hemoglobin (09/21/2016 4:05 PM EST) [facility] Hemoglobin 9.9(L) 11.7 - 15.5 gm/dL [facility] Blood specimen (specimen) 09/21/2016 4:05 PM EST 09/21/2016 4:20 PM EST Narrative Resulting Agency Comment Spec In Lab Alirio Esparza MD HEMATOLOGY ORDERABL ES Performing Organization Address [facility] Phone Number [facility] [place] [address] * Potassium (09/21/2016 4:05 PM EST) [facility] Potassium 4.6 3.5 - 5.0 mmol/L [facility] [...] MD CHEMISTRY ORDERABLE S Performing Organization Address [facility] Co de Phone Number [facility] [place] [address] * POCT Glucose (09/21/2016 2:52 PM EST) Glucose, POC 117 65 - 199 mg/dL [facility] Comment: Supplemental ranges: <140 mg/dL before meals <180 mg/dL all other times of the day Blood specimen (specimen) 09/21/2016 2:52 PM EST 09/21/2016 2:52 PM EST Alirio Esparza MD POINT OF CARE TEST ORDERABLES Performing Organization Address [facility] Co de Phone Number [facility] [place] [address] * POCT Glucose (09/21/2016 1:51 PM EST) Glucose, POC 108 65 - 199 mg/dL [facility] Comment: Supplemental ranges: <140 mg/dL before meals <180 mg/dL all other times of the day Blood specimen (specimen) 09/21/2016 1:51 PM EST 09/21/2016 1:51 PM EST Alirio Esparza MD POINT OF CARE TEST ORDERABLES Performing Organization Address [facility] Co de Phone Number [facility] [place] [address] * POCT Glucose (09/21/2016 12:54 PM EST) Glucose, POC 128 65 - 199 mg/dL [facility] Comment: Supplemental ranges: <140 mg/dL before meals <180 mg/dL all other times of the day Blood specimen (specimen) 09/21/2016 12:54 PM EST 09/21/2016 12:54 PM EST Alirio Esparza MD POINT OF CARE TEST ORDERABLES [facility] [place] [address] * EKG 12 Lead (09/21/2016 12:26 PM EST) Ventricular rate 87 BPM MUSE SYSTEM Atrial Rate 87 BPM MUSE SYSTEM P-R Interval 256 ms MUSE SYSTEM QRS Duration 90 ms MUSE SYSTEM Q-T Interval 406 ms MUSE SYSTEM QTC Calculated (Bezet) 488 ms MUSE SYSTEM Calculated P Merrill 24 degrees MUSE SYSTEM Calculated R Merrill 21 degrees MUSE SYSTEM Calculated T Merrill -5 degrees MUSE SYSTEM INTERPRETATION Sinus rhythm with 1st degree A-V block Nonspecific T wave abnormality Prolonged QT Abnormal ECG When compared with ECG of 19-MAY-2016 11:43, [place] interval has increased T wave inversion now [...] course of the esophagus and below the [id number]. There is a right IJ PA catheter [...] the course of theesophagus and below the [id number]. There is a right IJ PA catheter [...] EST) pH, Arterial 7.41 7.35 - 7.45 [facility] PCO2, Arterial 42 35 - 45 mmHg [facility] PO2, Arterial 356(H) 85 - 104 mmHg [facility] Bicarbonate, Arterial 26.2(H) 20.0 - 26.0 mmol/L [facility] Base Excess, Arterial 1.6 -3.0 - 3.0 mmol/L [facility] Hgb Blood Gas 10.7(L) 11.7 - 15.5 gm/dL [facility] Oxyhemoglobin, Arterial 98.1(H) 94.0 - 97.0 % [facility] Carboxyhemoglob in, Arterial 0.3 % [facility] Comment: Nonsmokers: 0.5-1.5% COHB Smokers: Variable, but usually less than 10% Toxic: 20-30% COHB Lethal: Greater than 60% COHB Methemoglobin, Arterial 0.8 <=1.5 % [facility] Na Whole Blood 140 135 - 145 mmol/L [facility] K Whole Blood 3.8 3.5 - 5.0 mmol/L [facility] Comment: Please note: Patients with WBC >100,000 may have falsely elevated Potassium levels. Contact the Clinical Chemistry Laboratory if there are any questions. ICa Whole Blood 1.15(L) 1.15 - 1.33 mmol/L [facility] Comment: Note: ??Total bilirubin higher than 20 mg/dL may lead to falsely low ionized calcium. CL Whole Blood 106 98 - 107 mmol/L [facility] Gluc Whole Bld 135 65 - 199 mg/dL [facility] Comment:Diabetes: >=200 mg/d L plus symptoms. Lactate WB 2.2 0.5 - 2.2 mmol/L [facility] FIO2 Art 100 % [facility] PF Ratio Art 356 [facility] Blood specimen (specimen) 09/21/2016 12:20 PM EST 09/21/2016 12:20 PM EST Alirio Esparza MD POINT OF CARE TEST ORDERABLES Performing Organization Address [facility] Phone Number [facility] [place] [address] * (ABNORMAL) BLOOD GAS 2 ARTERIAL (09/21/2016 10:54 AM EST) pH, Arterial 7.43 7.35 - 7.45 [facility] PCO2, Arterial 40 35 - 45 mmHg [facility] PO2, Arterial 297(H) 85 - 104 mmHg [facility] Bicarbonate, Arterial 26.0 20.0 - 26.0 mmol/L [facility] Base Excess, Arterial 1.6 -3.0 - 3.0 mmol/L [facility] Hgb Blood Gas 8.6(L) 11.7 - 15.5 gm/dL [facility] Oxyhemoglobin, Arterial 98.6(H) 94.0 - 97.0 % [facility] Carboxyhemoglob in, Arterial 0.5 % [facility] Comment: Nonsmokers: 0.5-1.5% COHB Smokers: Variable, but usually less than 10% Toxic: 20-30% COHB Lethal: Greater than 60% COHB Methemoglobin, Arterial 0.3 <=1.5 % [facility] Na Whole Blood 134(L) 135 - 145 mmol/L [facility] K Whole Blood 4.5 3.5 - 5.0 mmol/L [facility] Comment: Please note: Patients with WBC >100,000 may have falsely elevated Potassium levels. Contact the Clinical Chemistry Laboratory if there are any questions. ICa Whole Blood 1.16 1.15 - 1.33 mmol/L [facility] Comment: Note: ??Total bilirubin higher than 20 mg/dL may lead to falsely low ionized calcium. CL Whole Blood 104 98 - 107 mmol/L [facility] Gluc Whole Bld 240(H) 65 - 199 mg/dL [facility] Comment:Diabetes: >=200 mg/d L plus symptoms. Lactate WB 2.4(H) 0.5 - 2.2 mmol/L [facility] FIO2 Art 95 % [facility] Flow Art 0.7 LPM [facility] PF Ratio Art 313 [facility] Temp Art 36.7 Celsius [facility] Blood specimen (specimen) 09/21/2016 10:54 AM EST 09/21/2016 10:54 AM EST Alirio Esparza MD POINT OF CARE TEST ORDERABLES Performing Organization Address City/State/[facility] Co de Phone Number [facility] [place] [address] * Thrombin time (09/21/2016 10:50 AM EST) Thrombin Time 19 15 - 20 sec [facility] Comment: A prolongation in the [...] MD HEMATOLOGY ORDERABLE S Performing Organization Address [facility] de Phone Number [facility] [place] [address] * Fibrinogen (09/21/2016 10:50 AM EST) Fibrinogen 228 180 - 510 mg/dL [facility] Comment: Called by: JONNATHAN, Read back by: MCIHELLE ALEJANDRE_, Date/Time:09/21/16 11:11. A fibrinogen level >100 mg/dL is adequate for hemostasis in most patients without underlying bleeding disorders. Blood specimen (specimen) 09/21/2016 10:50 AM EST 09/21/2016 10:56 AM EST Narrative Resulting Agency Comment Spec In Lab Luis Enrique Quarles MD HEMATOLOGY ORDERABLE S Performing Organization Address [facility] de Phone Number [facility] [place] [address] * APTT (09/21/2016 10:50 AM EST) [facility] Partial Thromboplastin Time 32 25 - 35 sec [facility] Comment: The recommended therapeutic range for full dose, unfractionated heparin at [facility] is 80 ? 114 seconds. The use of the anti-Xa (heparin) level rather than the PTT is recommended for monitoring anticoagulation intensity in critically ill patients receiving unfractionated heparin by continuous IV infusion. Blood specimen (specimen) 09/21/2016 10:50 AM EST 09/21/2016 10:56 AM EST Narrative Resulting Agency Comment Spec In Lab Luis Enrique Quarles MD HEMATOLOGY ORDERABLE S Performing Organization Address [facility] de Phone Number [facility] [place] [address] * (ABNORMAL) Prothrombin Time (09/21/2016 10:50 AM EST) Pathologist [facility] Prothrombin Time 18.7(H) 12.0 - 15.0 sec [facility] Comment: An INR <2.0 indicates [...] International Normalization Ratio 1.5(H) 0.9 - 1.1 [facility] Blood specimen (specimen) 09/21/2016 10:50 AM EST 09/21/2016 10:56 AM EST Narrative Resulting Agency Comment Spec In Lab Luis Enrique Quarles MD HEMATOLOGY ORDERABLE S [facility] [place] [address] * (ABNORMAL) Hemogram (09/21/2016 10:50 AM EST) White Blood Cell 14.7(H) 4.0 - 9.5 x10(3)/mc L [facility] Red Blood Cell 2.40(L) 4.00 - 5.21 x10(6)/mc L [facility] Hemoglobin 7.9(L) 11.7 - 15.5 gm/dL [facility] Hematocrit 23.2(L) 35.7 - 45.8 % [facility] Comment: This result has been called to MICHELLE GRIGSBY by ASHU MORENO on 09 21 2016 at 1102, and has been read back. Mean Cell Volume 96.7(H) 82.6 - 94.4 fL [facility] Mean Cell Hemoglobin 32.9(H) 27.1 - 32.0 pg [facility] Mean Cell Hemoglobin Concentration 34.1 31.7 - 35.0 gm/dL [facility] Platelet 117(L) 145 - 357 x10(3)/mc L [facility] RDW Standard Deviation 42.6 37.0 - 46.0 fL [facility] RDW coefficient of variation 12.1 11.5 - 14.1 % [facility] Mean Platelet Volume 9.2 7.6 - 12.9 fL [facility] NRBC% auto 0.1 % [facility] NRBC Absolute 0.020(H) 0.000 - 0.000 x10(3)/mc L [facility] Blood specimen (specimen) 09/21/2016 10:50 AM EST 09/21/2016 10:56 AM EST Narrative Resulting Agency Comment Spec In Lab Luis Enrique Quarles MD HEMATOLOGY ORDERABLE S Performing Organization Address [facility] de Phone Number [facility] [place] [address] * Prepare Platelets, Apheresis (09/21/2016 10:30 AM EST) Dispensed? Yes [facility] Blood specimen (specimen) 09/21/2016 10:30 AM EST 09/21/2016 10:28 AM EST Alirio Esparza MD BLOOD BANK PRODUCT ORDERABLES Performing Organization Address [facility] Phone Number [facility] [place] [address] * (ABNORMAL) BLOOD GAS 2 ARTERIAL (09/21/2016 10:05 AM EST) pH, Arterial 7.33(L) 7.35 - 7.45 [facility] PCO2, Arterial 54(Critic al) 35 - 45 mmHg [facility] Comment:Noted by certified hearing instrument dispenser. PO2, Arterial 218(H) 85 - 104 mmHg [facility] Bicarbonate, Arterial 27.9(H) 20.0 - 26.0 mmol/L [facility] Base Excess, Arterial 2.0 -3.0 - 3.0 mmol/L [facility] Hgb Blood Gas 8.6(L) 11.7 - 15.5 gm/dL [facility] Oxyhemoglobin, Arterial 98.4(H) 94.0 - 97.0 % [facility] Carboxyhemoglo bin, Arterial 0.5 % [facility] Comment: Nonsmokers: 0.5-1.5% COHB Smokers: Variable, but usually less than 10% Toxic: 20-30% COHB Lethal: Greater than 60% COHB Methemoglobin, Arterial 0.3 <=1.5 % [facility] Na Whole Blood 129(L) 135 - 145 mmol/L [facility] K Whole Blood 6.2(Criti gabrielle) 3.5 - 5.0 mmol/L [facility] Comment: Noted by certified hearing instrument dispenser. Please note: Patients with WBC >100,000 may have falsely elevated Potassium levels. Contact the Clinical Chemistry Laboratory if there are any questions. ICa Whole Blood 0.95(L) 1.15 - 1.33 mmol/L [facility] Comment: Note: ??Total bilirubin higher than 20 mg/dL may lead to falsely low ionized calcium. CL Whole Blood 100 98 - 107 mmol/L [facility] Gluc Whole Bld 289(H) 65 - 199 mg/dL [facility] Comment:Diabetes: >=200 mg/d L plus symptoms. Lactate WB 2.2 0.5 - 2.2 mmol/L [facility] Temp Art 37.0 Celsius [facility] Blood specimen (specimen) 09/21/2016 10:05 AM EST 09/21/2016 10:05 AM EST Alirio Esparza MD POINT OF CARE TEST ORDERABLES [facility] [place] [address] * (ABNORMAL) BLOOD GAS 2 ARTERIAL (09/21/2016 9:44 AM EST) pH, Arterial 7.22(Criti gabrielle) 7.35 - 7.45 [facility] Comment:Noted by certified hearing instrument dispenser. PCO2, Arterial 70(Critica l) 35 - 45 mmHg [facility] Comment:Noted by certified hearing instrument dispenser. PO2, Arterial 224(H) 85 - 104 mmHg [facility] Bicarbonate, Arterial 27.8(H) 20.0 - 26.0 mmol/L [facility] Base Excess, Arterial 0.0 -3.0 - 3.0 mmol/L [facility] Hgb Blood Gas 8.7(L) 11.7 - 15.5 gm/dL [facility] Oxyhemoglobin, Arterial 98.5(H) 94.0 - 97.0 % [facility] Carboxyhemoglob in, Arterial 0.6 % [facility] Comment: Nonsmokers: 0.5-1.5% COHB Smokers: Variable, but usually less than 10% Toxic: 20-30% COHB Lethal: Greater than 60% COHB Methemoglobin, Arterial 0.3 <=1.5 % [facility] Na Whole Blood 131(L) 135 - 145 mmol/L [facility] K Whole Blood 5.9(H) 3.5 - 5.0 mmol/L [facility] Comment: Please note: Patients with WBC >100,000 may have falsely elevated Potassium levels. Contact the Clinical Chemistry Laboratory if there are any questions. ICa Whole Blood 1.00(L) 1.15 - 1.33 mmol/L [facility] Comment: Note: ??Total bilirubin higher than 20 mg/dL may lead to falsely low ionized calcium. CL Whole Blood 101 98 - 107 mmol/L [facility] Gluc Whole Bld 227(H) 65 - 199 mg/dL [facility] Comment:Diabetes: >=200 mg/d L plus symptoms. Lactate WB 2.1 0.5 - 2.2 mmol/L [facility] Blood specimen (specimen) 09/21/2016 9:44 AM EST 09/21/2016 9:44 AM EST Alirio Esparza MD POINT OF CARE TEST ORDERABLES [facility] [place] [address] * (ABNORMAL) Hemoglobin (09/21/2016 9:42 AM EST) Hemoglobin 7.2(L) 11.7 - 15.5 gm/dL [facility] Blood specimen (specimen) 09/21/2016 9:42 AM EST 09/21/2016 9:51 AM EST Narrative Resulting Agency Comment Spec In Lab Alirio Esparza MD HEMATOLOGY ORDERABL ES Performing Organization Address [facility]/ZIP Co de Phone Number [facility] [place] [address] * Platelet count (09/21/2016 9:42 AM EST) Platelet 159 145 - 357 x10(3)/mc L [facility] Immature Plt % 1.6 0.0 - 7.4 % [facility] Comment: Limitation of the Immature Platelet Fraction (IPF)-May be less reliable when the platelet count is less than [id number]/uL due to statistical imprecision. The IPF value [...] in a decreased state of production. References: [employer] The Clinical Value of the Immature Platelet Fraction (IPF) in Cell Recovery Document Number [id number] 12/2010 [employer] The Role of the Immature Platelet Fraction (IPF) in the Differential Diagnosis of Thrombocytopenia, Document [id number] V05/07/15 P0514 Blood specimen (specimen) 09/21/2016 9:42 AM EST 09/21/2016 9:51 AM EST Narrative Resulting Agency Comment Spec In Lab Alirio Esparza MD HEMATOLOGY ORDERABL ES Performing Organization Address [facility] Co de Phone Number [facility] [place] [address] * (ABNORMAL) Hematocrit (09/21/2016 9:42 AM EST) Hematocrit 21.6(L) 35.7 - 45.8 % [facility] Comment: This result has been called to MICHELLE ALEJANDRE by Serjio Frazier on 09 21 2016 at 0957, and has been read back. Blood specimen (specimen) 09/21/2016 9:42 AM EST 09/21/2016 9:51 AM EST Narrative Resulting Agency Comment Spec In Lab Alirio Esparza MD HEMATOLOGY ORDERABL ES Performing Organization Address [facility] de Phone Number [facility] [place] [address] * Fibrinogen (09/21/2016 9:42 AM EST) Fibrinogen 219 180 - 510 mg/dL [facility] Comment: Called by: JONNATHAN, Read back by: MICHELLE ALEJANDRE_, Date/Time:09/21/16 10:03_. A fibrinogen level >100 mg/dL is adequate for hemostasis in most patients without underlying bleeding disorders. Blood specimen (specimen) 09/21/2016 9:42 AM EST 09/21/2016 9:51 AM EST Narrative Resulting Agency Comment Spec In Lab Alirio Esparza MD HEMATOLOGY ORDERABL ES Performing Organization Address [facility] Co de Phone Number [facility] [place] [address] * (ABNORMAL) BLOOD GAS 2 ARTERIAL (09/21/2016 9:10 AM EST) pH, Arterial 7.36 7.35 - 7.45 [facility] PCO2, Arterial 48(H) 35 - 45 mmHg [facility] PO2, Arterial 295(H) 85 - 104 mmHg [facility] Bicarbonate, Arterial 26.0 20.0 - 26.0 mmol/L [facility] Base Excess, Arterial 0.5 -3.0 - 3.0 mmol/L [facility] Hgb Blood Gas 8.0(L) 11.7 - 15.5 gm/dL [facility] Oxyhemoglobin, Arterial 98.3(H) 94.0 - 97.0 % [facility] Carboxyhemoglob in, Arterial 1.0 % [facility] Comment: Nonsmokers: 0.5-1.5% COHB Smokers: Variable, but usually less than 10% Toxic: 20-30% COHB Lethal: Greater than 60% COHB Methemoglobin, Arterial 0.3 <=1.5 % [facility] Na Whole Blood 135 135 - 145 mmol/L [facility] K Whole Blood 5.4(H) 3.5 - 5.0 mmol/L [facility] Comment: Please note: Patients with WBC >100,000 may have falsely elevated Potassium levels. Contact the Clinical Chemistry Laboratory if there are any questions. ICa Whole Blood 0.93(L) 1.15 - 1.33 mmol/L [facility] Comment: Note: ??Total bilirubin higher than 20 mg/dL may lead to falsely low ionized calcium. CL Whole Blood 102 98 - 107 mmol/L [facility] Gluc Whole Bld 195 65 - 199 mg/dL [facility] Comment:Diabetes: >=200 mg/d L plus symptoms. Lactate WB 1.8 0.5 - 2.2 mmol/L [facility] Temp Art 37.0 Celsius [facility] Blood specimen (specimen) 09/21/2016 9:10 AM EST 09/21/2016 9:10 AM EST Alirio Esparza MD POINT OF CARE TEST ORDERABLES [facility] [place] [address] * Surgical Pathology Report (09/21/2016 9:09 AM EST) Final Diagnosis [id number] ?Location: 3T The signing pathologist has (i) [...] ?. (R1) ??ADELITA 09/24/2016 9:32 AM EST [facility] AORTIC STRUCTURE / Unknown 09/21/2016 9:09 AM EST 09/21/2016 9:09 AM EST Alirio Esparza MD PATHOLOGY/[place] [address] * Specimen to Pathology (surgical or derm) (09/21/2016 9:09 AM EST) AP Specimen 09/21/2016 9:09 AM EST 09/21/2016 9:09 AM EST Narrative [facility] - 09/21/2016 9:09 AM EST Specimen requisition ordered. ??Separate Pathology report to follow Alirio Esparza MD PATHOLOGY/CYTOLOGY ORDERABLES [facility] [place] [address] * (ABNORMAL) BLOOD GAS 2 ARTERIAL (09/21/2016 8:50 AM EST) pH, Arterial 7.41 7.35 - 7.45 [facility] PCO2, Arterial 33(L) 35 - 45 mmHg [facility] PO2, Arterial 348(H) 85 - 104 mmHg [facility] Bicarbonate, Arterial 20.6 20.0 - 26.0 mmol/L [facility] Base Excess, Arterial -4.1(L) -3.0 - 3.0 mmol/L [facility] Hgb Blood Gas 9.5(L) 11.7 - 15.5 gm/dL [facility] Oxyhemoglobin, Arterial 98.8(H) 94.0 - 97.0 % [facility] Carboxyhemoglob in, Arterial 0.3 % [facility] Comment: Nonsmokers: 0.5-1.5% COHB Smokers: Variable, but usually less than 10% Toxic: 20-30% COHB Lethal: Greater than 60% COHB Methemoglobin, Arterial 0.3 <=1.5 % [facility] Na Whole Blood 137 135 - 145 mmol/L [facility] K Whole Blood 4.0 3.5 - 5.0 mmol/L [facility] Comment: Please note: Patients with WBC >100,000 may have falsely elevated Potassium levels. Contact the Clinical Chemistry Laboratory if there are any questions. ICa Whole Blood 1.04(L) 1.15 - 1.33 mmol/L [facility] Comment: Note: ??Total bilirubin higher than 20 mg/dL may lead to falsely low ionized calcium. CL Whole Blood 105 98 - 107 mmol/L [facility] Gluc Whole Bld 93 65 - 199 mg/dL [facility] Comment:Diabetes: >=200 mg/d L plus symptoms. Lactate WB 1.0 0.5 - 2.2 mmol/L [facility] Blood specimen (specimen) 09/21/2016 8:50 AM EST 09/21/2016 8:50 AM EST Alirio Esparza MD POINT OF CARE TEST ORDERABLES [facility] [place] [address] * (ABNORMAL) BLOOD GAS 2 ARTERIAL (09/21/2016 8:18 AM EST) pH, Arterial 7.42 7.35 - 7.45 [facility] PCO2, Arterial 36 35 - 45 mmHg [facility] PO2, Arterial 283(H) 85 - 104 mmHg [facility] Bicarbonate, Arterial 22.8 20.0 - 26.0 mmol/L [facility] Base Excess, Arterial -2.0 -3.0 - 3.0 mmol/L [facility] Hgb Blood Gas 12.6 11.7 - 15.5 gm/dL [facility] Oxyhemoglobin, Arterial 99.0(H) 94.0 - 97.0 % [facility] Carboxyhemoglob in, Arterial 0.6 % [facility] Comment: Nonsmokers: 0.5-1.5% COHB Smokers: Variable, but usually less than 10% Toxic: 20-30% COHB Lethal: Greater than 60% COHB Methemoglobin, Arterial 0.0 <=1.5 % [facility] Na Whole Blood 144 135 - 145 mmol/L [facility] K Whole Blood 4.0 3.5 - 5.0 mmol/L [facility] Comment: Please note: Patients with WBC >100,000 may have falsely elevated Potassium levels. Contact the Clinical Chemistry Laboratory if there are any questions. ICa Whole Blood 1.22 1.15 - 1.33 mmol/L [facility] Comment: Note: ??Total bilirubin higher than 20 mg/dL may lead to falsely low ionized calcium. CL Whole Blood 106 98 - 107 mmol/L [facility] Gluc Whole Bld 102 65 - 199 mg/dL [facility] Comment:Diabetes: >=200 mg/d L plus symptoms. Lactate WB 1.2 0.5 - 2.2 mmol/L [facility] FIO2 Art 95 % [facility] Flow Art 1.1 LPM [facility] PF Ratio Art 298 [facility] Temp Art 35.6 Celsius [facility] Blood specimen (specimen) 09/21/2016 8:18 AM EST 09/21/2016 8:18 AM EST Alirio Esparza MD POINT OF CARE TEST ORDERABLES [facility] [place] [address] * Prepare RBC (09/21/2016 7:05 AM EST) Dispensed? Yes [facility] Blood specimen (specimen) 09/21/2016 7:05 AM EST 09/21/2016 7:02 AM EST Alirio Esparza MD BLOOD BANK PRODUCT ORDERABLES Performing Organization Address City/[facility]/ZIP Co de Phone Number [facility] [place] [address] * POCT Glucose (09/21/2016 6:42 AM EST) Glucose, POC 104 65 - 199 mg/dL [facility] Comment: Supplemental ranges: <140 mg/dL before meals <180 mg/dL all other times of the day Blood specimen (specimen) 09/21/2016 6:42 AM EST 09/21/2016 6:42 AM EST Alirio Esparza MD POINT OF C[place] [address] documented in this encounter Visit Diagnoses Not [...] dose on Wed09/21/16 at 1230, Until Discontinued, [place] teeth, Routine Given 09/25/2016 9:40 AM EST [...] (Due - Provider: Kendall Martínez [facility]) aspirin chewable tablet 81 mg(Linked Group [...] (See Alternative - Provider: Marek Barnes, VALDO) 0942 (See Alternative - Provider: Joselyn Caceres [...] dose on Wed09/21/16 at 1230, Until Discontinued, [place] teeth, Routine 0900 (Not Given - Provider: [...] Routine 2017 (Given - Provider: Federico Apple, RN) 08 (Given - Provider: Marek Barnes, RN)2042 (Given - Provider: Alie Whitfield, VALDO) 0941 (Given - Provider: Joselyn Caceres, [...] Routine 2099 (Not Given - Provider: Federico Apple, VALDO - Reason: Patient/family refused) 2099 (Not Given [...] Apple RN) 0300 (Given - Provider: Alie Whitfield, VALDO - Comment: flushed earlier in shift)1100 (Given [...] Routine documented in this encounter Care Teams Financial Systems Director Relationship Specialty Start Date End Date Deborah Quiroga APRN PCP - General Family Medicine 03/24/16 02/04/23 documented as of this encounter
--- OUTSIDE RECORDS SUMMARY | 2024-04-18 14:39 | XMS_ITS | Encounter Summary ---
[place] [address] Care Team Providers Care Die Cast Operator Name Role Phone Deborah Quiroga APRN Primary Care Provider [phone] Reason for Visit * Reason Onset Date Comments Prior Authorization 09/11/2016 Neulasta Encounter Details Date Type Department Care Team (Late st Contact Info) Description 09/11/2016 Telephone Hematology [place] [phone] Monica Wick Prior Authorization (Neulasta ) Social [...] EST Prior Auth for Neulasta (Approved) [facility] is a covered facility under the members plan. ID# [id number] Call placed to [phone] Rationale: Can you please start a PA for this pt to receive as outpatient at [facility] on 09/16/16? 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 ??Her last ANC was 0.56 (or 560) on 08/04/16. ??This will need to be approved through her medical as out patient. J code for neulasta. ?? [id number]. Spoke w/ Anna Marie Call Reference [id number] Copay: $ Deductible is not met, patient will have out of pocket costs until deductible is met. documented in this encounter Plan of Treatment Upcoming Encounters Date Type Department Care Team (Late st Contact Info) Description 05/12/2024 9:00 AM EDT Appointment Hematology [place] [address] 05/12/2024 10:00 AM EDT Office Visit Hematology [place] [address] Markel Borjas MD [facility] [address] [place] [address] 03/01/2025 4:15 PM EDT Office Visit Dermatology at [place] [address] [place] [address] Marek Bonilla MD [address] [place] [address] documented as of this encounter Visit Diagnoses Not on filedocumented in this encounter Care Teams Die Cast Operator Relationship Specialty Start Date End Date Deborah Quiroga APRN PCP - General Family Medicine 03/24/16 02/04/23 documented as of this encounter
--- OUTSIDE RECORDS SUMMARY | 2024-04-18 14:39 | XMS_ITS | Encounter Summary ---
Author Organization [facility] Address [facility] [place] [address] Care Team Providers Care Stage Settings Painter Name Role Phone Deborah Quiroga ANURAG Primary Care Provider [phone] Encounter Details Date Type Department Care Team (Latest Contact Info) Description 08/18/2016 4:40 PM EST Laboratory [place] [address] Aortic valve stenosis, unspecified etiology [...] AM EDT Appointment Hematology [place] [address] 05/12/2024 10:00 AM EDT Office Visit Hematology [place] [address] [facility] [address] HEMATOLOGY [place] [address] 03/01/2025 4:15 PM EDT Office Visit Dermatology at [address] [phone] Marek Bonilla MD [address], [place] [address] documented as of this encounter Procedures Procedure Name Priority Date/Time Associated Diagnosis Comments ABORH RECHECK STATUS Routine 08/18/2016 4:50 PM EST TYPE AND SCREEN, SDP (FUTURE SURGERY, [facility] SAME DAY PROGRAM ONLY) Routine 08/18/2016 [...] Esparza MD BLOOD BANK LAB BETH ALEJO [facility] Organization Address City/State/ZIP Co de Phone Number [facility] [place] [address] * Antibody screen (08/18/2016 4:50 PM EST) [...] BANK LAB BETH ALEJO Performing Organization Address City/[facility]/ZIP Co de Phone Number [facility] [place] [address] * ABO/Rh Typing (08/18/2016 4:50 PM EST) ABORH Type B Pos [facility] Blood specimen (specimen) 08/18/2016 4:50 PM EST 08/18/2016 5:11 PM EST Narrative Resulting Agency Comment Spec In Lab Alirio Esparza MD BLOOD BANK LAB [place]JO Performing Organization Address [facility] Co de Phone Number [facility] [place] [address] * Basic Metabolic Panel (non-fasting) (08/18/2016 4:50 PM EST) [facility] Glucose 82 65 - 199 mg/dL [place] [...] the following links into your internet browser. [email or web address] Blood specimen (specimen) 08/18/2016 4:50 PM EST 08/18/2016 5:03 PM EST Narrative Resulting Agency Comment Spec In Lab Alirio Esparza MD CHEMISTRY ORDERABLE S [facility] [place] [address] documented in this encounter Visit Diagnoses Diagnosis Aortic valve stenosis, unspecified etiology documented in this encounter Care Teams Stage Settings Painter Relationship Specialty Start Date End Date Deborah Quiroga APRN PCP - General Family Medicine 03/24/16 02/04/23 documented as of this encounter
--- OUTSIDE RECORDS SUMMARY | 2024-04-18 14:39 | XMS_ITS | Encounter Summary ---
Author Organization [facility] Address [facility] [place] [address] Care Team Providers Care Handkerchief Cutter Name Role Phone Deborah Quiroga APRN Primary Care Provider [phone] Reason for Visit * Reason Comments Schedule Office Case * Consultation (Routine) - Closed Specialty Diagnoses / Procedures Referred By Contac t Referred To Contact Hematology and Oncology Diagnoses Leukopenia Neutropenia LEUKOPENIA W/NEUTROPENIA Procedures TC PEGFILGRASTIM, 6MG, INJECTION LEUKOPENIA W/NEUTROPENIA Alirio Esparza MD [facility] CARDIOTHORACIC [place] [address] Mario Alberto Ramos Jr., MD [facility] [address] HEMATOLOGY [place] [address] Referral ID Status Reason Start Date Expiration Date V isits Requested Visits Authorized [id number] Closed Consult, Test & Treat 07/17/2016 07/17/2017 1 1 Encounter Details Date Type Department Care Team (Late st Contact Info) Description 06/09/2016 3:00 PM EST Office Visit Hematology [place] [address] Mario Alberto Ramos Jr., MD [facility] HEMATOLOGY [place] [address] Cyclical neutropenia Social History Tobacco Use Types [...] 06/09/2016 3:00 PM EST Hematology Outpatient Clinic [facility] Hematology Outpatient Consult Note CC: [...] Unknown See Comment Flow Cytometry Report Unknown [id number] ... HematoPathology: Flow Cytometry DIAGNOSIS 1. No [...] EDT Appointment Hematology [place] [address] 05/12/2024 10:00 AM EDT Office Visit Hematology [place] [address] Markel Borjas MD [facility] [address] HEMATOLOGY [place] [address] 03/01/2025 4:15 PM EDT Office Visit Dermatology at [place] [address] [place] [phone] Marek Bonilla MD [address], [place] [address] documented as of this encounter [...] (06/09/2016 4:53 PM EST) Flow Cytometry Report [id number] ?Location: 3K The signing pathologist has (i) [...] by the Clinical Flow Cytometry Laboratory at [facility]. It has not been cleared or approved [...] high complexity clinical laboratory testing. SPECIMEN PROCESSING [id number] Cells for immunophenotypic analysis were derived from [...] female with neutropenia. LGL panel requested. [facility] 06/09/2016 4:53 PM EST Mario Alberto Ramos Jr., MD PATHOLOGY/CYTOLOGY O RDERABLES Performing Organization Address City/[facility]/ZIP Co de Phone Number [facility] [place] [address] * Scan, Peripheral Blood (06/09/2016 4:53 PM EST) Plat estimate Normal [facility] RBC Morphology Normal [facility] Blood specimen (specimen) 06/09/2016 4:53 PM EST 06/09/2016 5:00 PM EST Narrative Resulting Agency Comment Spec In Lab Mario Alberto Ramos Jr., MD HEMATOLOGY ORDERABLE S Performing Organization Address City/[facility]/ZIP Co de Phone Number [facility] [place] [address] * (ABNORMAL) Differential, Automated (06/09/2016 4:53 PM EST) Pathologist [facility] Neutrophil % 27.7 % [facility] Neutrophil Absolute 0.48(Crit ical) 1.70 - 6.10 x10(3)/mc L [facility] Comment: Matches Previous Results.. This result has been called to NOT CALLED by Jesusita Argueta on 06 09 2016 at 1817, and has not been read back. MATCHES PREVIOUS RESULTS Lymph % 57.2 % [facility] Lymphocytes Abs 1.0 0.9 - 3.2 x10(3)/ L [facility] Monocyte % 13.3 % [facility] Monocyte Abs 0.2(L) 0.3 - 0.9 x10(3)/[facility] Eos % 0.6 % [facility] Eosinophils Abs 0.0 0.0 - 0.4 x10(3)/[facility] Basophil % 1.2 % [facility] Baso Absolute 0.0 0.0 - 0.1 x10(3)/[facility] Immature Gran % 0.00 % [facility] Comment: Immature granulocytes(IG's)percentage and absolute count will include metamyelocytes, myelocytes, and promyelocytes. Blood smears from CBCs yielding IG's will be scanned manually for concordance. If this scan disagrees with the automated IG or if promyelocytes are noted, a manual differential will be performed. Immature Gran Absolute 0.00 0.00 - 0.04 x10(3)/[facility] Blood specimen (specimen) 06/09/2016 4:53 PM EST 06/09/2016 5:00 PM EST Narrative Resulting Agency Comment Spec In Lab Mario Alberto Ramos Jr., MD HEMATOLOGY ORDERABLE S Performing Organization Address City/State/[facility] Co de Phone Number [facility] [place] [address] * (ABNORMAL) Hemogram (06/09/2016 4:53 PM EST) White Blood Cell 1.7(Criti gabrielle) 4.0 - 9.5 x10(3)/[facility] Red Blood Cell 3.92(L) 4.00 - 5.21 x10(6)/[facility] Hemoglobin 12.4 11.7 - 15.5 gm/dL [facility] Hematocrit 36.7 35.7 - 45.8 % [facility] Mean Cell Volume 93.6 82.6 - 94.4 fL [facility] Mean Cell Hemoglobin 31.6 27.1 - 32.0 pg [facility] Mean Cell Hemoglobin Concentration 33.8 31.7 - 35.0 gm/dL [facility] Platelet 234 145 - 357 x10(3)/mc L [facility] RDW Standard Deviation 39.8 37.0 - 46.0 fL [facility] RDW coefficient of variation 11.8 11.5 - 14.1 % [facility] Mean Platelet Volume 8.6 7.6 - 12.9 fL [facility] NRBC% auto 0.0 % [facility] NRBC Absolute 0.000 0.000 - 0.000 x10(3)/mc L [facility] Blood specimen (specimen) 06/09/2016 4:53 PM EST 06/09/2016 5:00 PM EST Narrative Resulting Agency Comment Spec In Lab Mario Alberto Ramos Jr., MD HEMATOLOGY ORDERABLE S Performing Organization Address City/[facility]/ZIP Co de Phone Number [facility] [place] [address] * Immunophenotyping Flow Cytometry (06/09/2016 4:53 PM EST) Immunophenotyping Flow See Comment [facility] Comment: When completed by the Pathologist, the Flow Cytometry Report ([id number]) will display under the Pathology Results section within [facility]. Specimen of unknown material (specimen) 06/09/2016 4:53 PM EST 06/09/2016 5:00 PM EST Narrative Resulting Agency Comment Spec In Lab Mario Alberto Ramos Jr., MD HEMATOLOGY ORDERABLE S Performing Organization Address City/[facility]/ZIP Co de Phone Number [facility] [place] [address] documented in this encounter Visit Diagnoses Diagnosis Cyclical neutropenia Cyclic neutropenia documented in this encounter Care Teams Handkerchief Cutter Relationship Specialty Start Date End Date Deborah Quiroga APRN PCP - General Family Medicine 03/24/16 02/04/23 documented as of this encounter
--- OUTSIDE RECORDS SUMMARY | 2024-04-18 14:39 | XMS_ITS | Encounter Summary ---
Author Organization [facility] Address [facility] [place] [address] Care Team Providers Care Neurological Physiotherapist Name Role Phone Ashley Quirogan Cornelius ANURAG Primary Care Provider [phone] Encounter Details Date Type Department Care Team (Late st Contact Info) Description 08/11/2016 Telephone Hematology [place] [phone] Markel Borjas MD [address] [facility] [address] HEMATOLOGY [place] [address] Social History Tobacco Use Types Packs/Day Years [...] AM EDT Appointment Hematology [place] [address] 05/12/2024 10:00 AM EDT Office Visit [place] [address] Markel Borjas MD [facility] [address] HEMATOLOGY [place] [address] 03/01/2025 4:15 PM EDT Office Visit Dermatology at [place] [address] [place] [phone] Marek Bonilla MD [address] [place] [address] documented as of this encounter Visit Diagnoses Not on filedocumented in this encounter Care Teams Neurological Physiotherapist Relationship Specialty Start Date End Date Deborah Quiroga APRN PCP - General Family Medicine 03/24/16 02/04/23 documented as of this encounter
--- OUTSIDE RECORDS SUMMARY | 2024-04-18 14:39 | XMS_ITS | Encounter Summary ---
Author Organization [facility] Address [facility] [place] [address] Care Team Providers Care Diesel Fleet Mechanic Name Role Phone Ashley Quirogan Cornelius ANURAG Primary Care Provider [phone] Encounter Details Date Type Department Care Team (Late st Contact Info) Description 07/13/2016 External [place] [phone] Provider, Scanning Social History Tobacco Use Types [...] AM EDT Appointment Hematology [place] [phone] 05/12/2024 10:00 AM EDT Office Visit [place] [address] Markel Borjas MD [facility] [address] [place] [address] 03/01/2025 4:15 PM EDT Office Visit Dermatology at [place] [address] [facility] [place] [phone] Marek Bonilla MD [address], [place] [address] documented as of this encounter Procedures Procedure Name Priority Date/Time Associated Diagnosis Comments SURGICAL PATHOLOGY SCAN Routine 07/13/2016 documented in this encounter Results * Scan Doc: Surgical Pathology (07/13/2016) Nitesh Pina Jr., MD MEDIA MGR SCAN EXT O RDR/RSLT documented in this encounter Visit Diagnoses Not on filedocumented in this encounter Care Teams Diesel Fleet Mechanic Relationship Specialty Start Date End Date Deborah Quiroga APRN PCP - General Family Medicine 03/24/16 02/04/23 documented as of this encounter
--- OUTSIDE RECORDS SUMMARY | 2024-04-18 14:39 | XMS_ITS | Encounter Summary ---
Author Organization [facility] Address [facility] [place] [address] Care Team Providers Care Skinning Machine Feeder Name Role Phone Deborah Quiroga ANURAG Primary Care Provider [phone] Encounter Details Date Type Department Care Team (Late st Contact Info) Description 07/31/2016 Orders Only [place] [phone] Alexandrea Greenwood RN Neutropenia, unspecified type Social [...] AM EDT Appointment [place] [phone] 05/12/2024 10:00 AM EDT Office Visit [place] [phone] Markel Borjas MD [facility] H[place]ATOLOG[place] [address] 03/01/2025 4:15 PM EDT Office Visit Dermatology at [address] [address] Marek Bonilla MD [address], [place] [address] documented as of this encounter Results * [...] type documented in this encounter Care Teams Skinning Machine Feeder Relationship Specialty Start Date End Date Deborah Quiroga APRN PCP - General Family Medicine 03/24/16 02/04/23 documented as of this encounter
--- OUTSIDE RECORDS SUMMARY | 2024-04-18 14:39 | XMS_ITS | Encounter Summary ---
[place] [address] Care Team Providers Care Client Advisor Name Role Phone Deborah Quiroga APRN Primary Care Provider [phone] Reason for Visit * Reason Onset Date Comments Pre Procedure Call 06/18/2016 Encounter Details Date Type Department Care Team (Late st Contact Info) Description 06/18/2016 Telephone [place] [phone] Alexandrea Greenwood RN Pre Procedure Call Social [...] AM EDT Appointment [place] [phone] 05/12/2024 10:00 AM EDT Office Visit [place] [address] Markel Borjas MD [facility] [address] [place] [address] 03/01/2025 4:15 PM EDT Office Visit Dermatology at [place] [address] [facility] [address] Marek Bonilla MD [address], [address] [place] [address] documented as of this encounter Visit Diagnoses Not on filedocumented in this encounter Care Teams Client Advisor Relationship Specialty Start Date End Date Deborah Quiroga, SEED SALES MANAGER PCP - General Family Medicine 03/24/16 02/04/23 documented as of this encounter
--- OUTSIDE RECORDS SUMMARY | 2024-04-18 14:39 | XMS_ITS | Encounter Summary ---
Author Organization [facility] Address [facility] [place] [address] Care Team Providers Care Horticulture Teacher Name Role Phone Deborah Quiroga ANURAG Primary Care Provider [phone] Encounter Details Date Type Department Care Team (Late st Contact Info) Description 08/04/2016 External Results Hematology [place] [phone] Alexandrea Greenwood RN Neutropenia, unspecified type Social [...] AM EDT Appointment Hematology [place] [phone] 05/12/2024 10:00 AM EDT Office Visit [place]emat[place] [phone] Markel Borjas MD [facility] [place] [address] 03/01/2025 4:15 PM EDT Office Visit Dermatology at [address] [address] Marek Bonilla MD [address], [place] [address] documented as of this encounter Procedures Procedure [...] type documented in this encounter Care Teams Horticulture Teacher Relationship Specialty Start Date End Date Deborah Quiroga APRN PCP - General Family Medicine 03/24/16 02/04/23 documented as of this encounter
--- OUTSIDE RECORDS SUMMARY | 2024-04-18 14:39 | XMS_ITS | Encounter Summary ---
Author Organization [facility] Address [facility] [place] [address] Care Team Providers Care Glazier Helper Name Role Phone Junaid, Deborah Shields APRN Primary Care Provider [phone] Reason for Visit * Auth/Cert Specialty Diagnoses / Procedures Referred By Crispin t Referred To Contact Diagnoses AVS Procedures CARDIAC CATHETERIZATION Referral ID Status Reason Start Date Expiration Date Visits Re quested Visits Authorized [id number] 1 1 Encounter Details Date Type Department Care Team (Late st Contact Info) Description 06/03/2016 7:30 AM EDT - 06/03/2016 8:30 AM EDT Surgery Railroad Firer/[place] [phone] Mario Alberto Escobedo MD [facility] [place] [address] CARDIAC CATHETERIZATION Social History Tobacco Use Types [...] by your doctor, do not take any kirj-rqt-yuzyvjd medicinesor herbal preparations without first discussing this with your doctor or pharmacist. There is the possibility of side effects and interactions when these are combined. Follow Up Care Who to call with questions or problems If there are any questions or problems that you think might be related to your cardiac cath or angioplasty, contact the orchard sprayer precision assembly inspector by calling [facility] at . * Patient Instructions* Felicia Corrigan - 06/03/2016 9:33 AM EDT Cardiology Instructions Call your doctor if: Chest pain, dyspnea, pain or swelling in legs occurs. If you have non-emergent questions between now and the time of your follow up appointments: -During 8am-5pm Wednesday through Wednesday call [phone] to speak with a nurse in the cardiology clinic -All other times call [phone] and ask to speak to the credit risk modeler precision assembly inspector. MEDICATIONS - restart your spironolactone, discontinue prior [...] Appointments: Primary care provider: Cardiology: Deborah Hahn, SUPERVISOR FINISHING DEPARTMENT [phone] Follow up as planned or as needed. Dr. Esparza [phone] Other follow-up appointment: Hematology - Dr. Mario [...] AM EDT Appointment Hematology [place] [address] 05/12/2024 10:00 AM EDT Office Visit [place]ematology [place] [address] Markel Borjas MD [facility] [address] HEMATOLOGY [place] [address] 03/01/2025 4:15 PM EDT Office Visit Dermatology at [place] [address] [facility] [place] [phone] Marek Bonilla MD [address], [place] [address] documented as of this encounter Procedures Procedure [...] AM EDT) Green Hold Sample in lab. [facility] Blood specimen (specimen) Venous Draw / Unknown 06/03/2016 11:45 AM EDT 06/03/2016 12:12 PM EDT Mario Alberto Escobedo MD CHEMISTRY ORDERABLES Performing Organization Address City/Va Hospital/ZIP Co de Phone Number [facility] [place] [address] * Methylmalonic acid, serum (06/03/2016 11:45 AM EDT) Methylmalonic Acid (NOVEMBER) 0.21 <=0.40 nmol/mL [facility] Comment: Test Performed by: [address] [address] Stone Banker: Raymond Chaudhry II, M.D., Ph.D. Blood specimen (specimen) 06/03/2016 11:45 AM EDT 06/03/2016 1:57 PM EDT Narrative Resulting Agency Comment Spec In Lab Mario Alberto Escobedo MD LAB SEND OUT ORDERAB LES Performing Organization Address City/Va Hospital/ZIP Co de Phone Number [facility] [place] [address] * Granulocyte Antibody (06/03/2016 11:45 AM EDT) Pathologist [facility] Granulocyte Ab (NOVEMBER) Negative Not Applicable [facility] Comment: ADDITIONAL INFORMATION Method: Immunofluorescent Assay Performing Laboratory CLIA# [id number] This test was developed and its performance characteristics determined by [facility] in a manner consistent with CLIA requirements. This test has not been cleared or approved by the U.S. Food and Drug Administration. Test Performed by: [place] [address] Stone Banker: Raymond Chaudhry II, M.D., Ph.D. Blood specimen (specimen) 06/03/2016 11:45 AM EDT 06/03/2016 1:57 PM EDT Narrative Resulting Agency Comment Spec In Lab Mario Alberto Escobedo MD LAB SEND OUT ORDERAB LES [facility] [place] [address] * TSH (06/03/2016 11:45 AM EDT) Pathologist [facility] Thyroid Stimulating Hormone 2.18 0.27 - 4.20 mcIU/mL [facility] Blood specimen (specimen) 06/03/2016 11:45 AM EDT 06/03/2016 12:11 PM EDT Narrative Resulting Agency Comment Spec In Lab Mario Alberto Escobedo MD CHEMISTRY ORDERABLES Performing Organization Address City/Va Hospital/ZIP Co de Phone Number [facility] [place] [address] * Homocysteine Total, Plasma (06/03/2016 11:45 AM EDT) Homocystine 9 <=15 mcmol/L [facility] Blood specimen (specimen) 06/03/2016 11:45 AM EDT 06/03/2016 12:11 PM EDT Narrative Resulting Agency Comment Spec In Lab Mario Alberto Escobedo MD CHEMISTRY ORDERABLES Performing Organization Address City/Va Hospital/[facility] Co de Phone Number [facility] [place] [address] * Folate, serum (06/03/2016 11:45 AM EDT) Folate >20.0 4.8 - 24.2 ng/mL [facility] Blood specimen (specimen) 06/03/2016 11:45 AM EDT 06/03/2016 12:04 PM EDT Narrative Resulting Agency Comment Spec In Lab Mario Alberto Escobedo MD CHEMISTRY ORDERABLES Performing Organization Address [facility]/Va Hospital/[facility] Co de Phone Number [facility] [place] [address] * (ABNORMAL) Sedimentation rate (06/03/2016 11:45 AM EDT) Sedimentation Rate Automated 41(H) 0 - 20 mm/hr [facility] Blood specimen (specimen) 06/03/2016 11:45 AM EDT 06/03/2016 12:04 PM EDT Narrative Resulting Agency Comment Spec In Lab Mario Alberto Escobedo MD HEMATOLOGY ORDERABLE S Performing Organization Address City/Va Hospital/[facility] Co de Phone Number [facility] [place] [address] * Lactate Dehydrogenase (06/03/2016 11:45 AM EDT) Lactate Dehydrogenase 164 110 - 220 unit/L [facility] Blood specimen (specimen) 06/03/2016 11:45 AM EDT 06/03/2016 12:11 PM EDT Narrative Resulting Agency Comment Spec In Lab Mario Alberto Escobedo MD CHEMISTRY ORDERABLES Performing Organization Address City/Va Hospital/ZIP Co de Phone Number [facility] [place] [address] * Comprehensive metabolic panel (non-fasting) (06/03/2016 11:45 AM EDT) Glucose 90 65 - 199 mg/dL [facility] Comment:Diabetes: >=200 mg/d L plus symptoms Blood Urea Nitrogen 11 8 - 18 mg/dL [facility] Creatinine 0.83 0.70 - 1.20 mg/dL [facility] Comment: Please note that the pediatric reference intervals supplied above were not validated at [facility]. Results from pediatric patients should be interpreted in conjunction to the patient's age, height and muscle mass. Sodium 143 135 - 145 mmol/L [facility] Potassium 4.0 3.5 - 5.0 mmol/L [facility] Comment: Please note: ??Patients with WBC >100,000 may have falsely elevated Potassium levels. ??For accurate Potassium quantification in these patients send serum separator tube (gold top) for subsequent determinations. ??Contact the Clinical Chemistry Laboratory if there are any questions. Chloride 104 98 - 107 mmol/L [facility] Carbon Dioxide 25 22 - 31 mmol/L [facility] Anion Gap 14 5 - 15 mmol/L [facility] Calcium 9.2 8.5 - 10.5 mg/dL [facility] Protein, Total 7.0 6.1 - 8.0 gm/dL [facility] Albumin 4.0 3.2 - 5.2 gm/dL [facility] Aspartate Aminotransferase 17 0 - 30 unit/L [facility] Alanine Aminotransferase 9 0 - 30 unit/L [facility] Alkaline Phosphatase 81 40 - 104 unit/L [facility] Bilirubin, Total 0.4 0.2 - 1.3 mg/dL [facility] Bilirubin, Direct 0.1 0.0 - 0.3 mg/dL [facility] Est Glomerular [...] the following links into your internet browser. [email or web address] Blood specimen (specimen) 06/03/2016 11:45 AM EDT 06/03/2016 12:11 PM EDT Narrative Resulting Agency Comment Spec In Lab Mario Alberto Escobedo MD CHEMISTRY ORDERABLES [facility] [place] [address] documented in this encounter Visit Diagnoses Diagnosis [...] 08 (Given - Provid er: Alirio Hernandez) heparin [...] Hernandez) documented in this encounter Care Teams Glazier Helper Relationship Specialty Start Date End Date Deborah Quiroga APRN PCP - General Family Medicine 03/24/16 02/04/23 documented as of this encounter
--- OUTSIDE RECORDS SUMMARY | 2024-04-18 14:39 | XMS_ITS | Encounter Summary ---
Author Organization [facility] [place] [address] Care Team Providers Care Bone Worker Name Role Phone Deborah Quiroga APRN Primary Care Provider Encounter Details Date Type Department Care Team (Latest Contact Info) Description 07/10/2016 2:54 PM EST - 07/10/2016 11:59 PM EST Hospital [place] [phone] Discharge Disposition: Home Social History Tobacco Use [...] AM EDT Appointment Hematology [place] [address] 05/12/2024 10:00 AM EDT Office Visit Hematology [place] [address] Markel Borjas MD [facility] [address] [place] [address] 03/01/2025 4:15 PM EDT Office Visit Dermatology at [place] [address] [facility] [place] [address] Marek Bonilla MD [address] [facility], [place] [address] documented as of this encounter Procedures Procedure Name Priority Date/Time Associated Diagnosis Comments BONE MARROW FINAL REPORT Routine 07/10/2016 3:43 PM EST documented in this encounter Results * Bone Marrow Final Report (07/10/2016 3:43 PM EST) Final Diagnosis [id number] ?Location: [facility]W The signing pathologist has (i) examined the relevant preparation(s) for the specimen(s) and (ii) rendered or confirmed the diagnosis(es). . ? Bone Marrow Final DIAGNOSIS BONE MARROW (PERIPHERAL SMEAR, ASPIRATE SMEAR, TOUCH PREP, CLOT SECTION, CORE BIOPSY); [OSR# [id number], COLLECTED 06/23/2016, 19 SLIDES]: ?? 1. ??Normocellular [...] clonal lymphoproliferative or myeloproliferative ? disorder (OSR# [id number]) ?Chromosome analysis on the marrow aspirate revealed a normal female karyotype; ?46,XX[25] ??(OSR# [id number]) Electronically signed by: ??Elian Guillen MD Verified: [...] 3/uL Band/Seg 0.52 x103/uL; Lymph 0.75 x103/uL; [place] 0.15 x103/uL; Eos 0.01%; Baso 0.01 x10 [...] plasma cells represent 3-4% of the cellularity [place] ? Polytypic plasma cell staining, high background Lambda ?Polytypic plasma cell staining, high background Block: ? B2 (Core biopsy 2) Fixative: ?? Formalin ANTIBODY: ?? RESULT/COMMENT CD3 ? Scattered small lymphocytes and lymphoid aggregates highlighted CD20 ?Few scattered small lymphocytes stain ( ?? <CD3 in aggregates) CD138 ? Scattered plasma cells represent 3-4% of the cellularity [place] ? Polytypic plasma cell staining, high background Lambda ?Polytypic plasma cell staining, high background Note: The immunoperoxidase stains reported above were developed and their performance characteristics determined by [facility]. ??They have not been cleared [...] CONSULTATION CASE A - 19 slides labeled [id number], collection date 06/23/2016. [id number] Report to: [facility] Surgical Pathology Department [facility], [facility], [address] Floor [address] [place] [id number] 07/13/2016 11:38 AM EST [facility] Consult Case 07/10/2016 3:43 PM EST 07/10/2016 3:43 PM EST Nitesh Pina Jr., MD PATHOLOGY/CYTOLOGY O RDERABLES [facility] [place] [address] documented in this encounter Visit Diagnoses Not on filedocumented in this encounter Care Teams Bone Worker Relationship Specialty Start Date End Date Deborah Quiroga, TOWER EXCAVATOR OPERATOR PCP - General Family Medicine 03/24/16 02/04/23 documented as of this encounter
--- OUTSIDE RECORDS SUMMARY | 2024-04-18 14:40 | XMS_ITS | Encounter Summary ---
Author Organization [facility] [place] [address] Care Team Providers Care Plastics Technician Name Role Phone Junaid, Deborah Shields APRN Primary Care Provider [phone] Encounter Details Date Type Department Care Team (Late st Contact Info) Description 05/19/2016 10:00 AM EDT Office [place] [phone] Alirio Esparza MD Nonrheumatic aortic valve stenosis [...] AM EDT Appointment Hematology [place] [address] 05/12/2024 10:00 AM EDT Office Visit Hematology [place] [address] Markel Borjas MD [facility] [address] [place] [address] 03/01/2025 4:15 PM EDT Office Visit Dermatology at [place] [address] [facility] [place] [phone] Marek Bonilla MD [address] [facility], [place] [address] documented as of this encounter Results * [...] (Bezet) 448 ms MUSE SYSTEM Calculated P [place] 37 degrees MUSE SYSTEM Calculated R [place] 31 degrees MUSE SYSTEM Calculated T [place] 25 degrees MUSE SYSTEM INTERPRETATION Normal sinus rhythm Normal ECG No previous ECGs available Confirmed by MD Becca, Deangelo ([id number]) on 05/19/2016 5:23:33 PM MUSE SYSTEM 05/19/2016 11:4 3 AM EDT 05/19/2016 5:23 PM EDT Alirio Esparza MD ECG ORDERABLES MUSE SYSTEM * Basic Metabolic Panel (non-fasting) (05/19/2016 11:32 AM EDT) Glucose 86 65 - 199 mg/dL [facility] Comment:Diabetes: >=200 mg/d L plus symptoms Blood Urea Nitrogen 13 8 - 18 mg/dL [facility] Creatinine 0.95 0.70 - 1.20 mg/dL [facility] Comment: Please note that the pediatric reference intervals supplied above were not validated at [facility]. Results from pediatric patients should be interpreted in conjunction to the patient's age, height and muscle mass. Sodium 140 135 - 145 mmol/L [facility] [...] questions. Chloride 101 98 - 107 mmol/L [facility] Carbon Dioxide 27 22 - 31 mmol/L [facility] Anion Gap 12 5 - 15 mmol/L [facility] Calcium 10.1 8.5 - 10.5 mg/dL [facility] Est Glomerular Filtration Rate 60 >=60 [facility] [...] the following links into your internet browser. [email or web address] Blood specimen (specimen) 05/19/2016 11:32 AM EDT 05/19/2016 11:41 AM EDT Narrative Resulting Agency Comment Spec In Lab Alirio Esparza MD CHEMISTRY ORDERABLE S [facility] [place] [address] documented in this encounter Visit Diagnoses Diagnosis Nonrheumatic aortic valve stenosis Aortic valve disorders Nonrheumatic aortic valve stenosis Aortic valve disorders documented in this encounter Care Teams Plastics Technician Relationship Specialty Start Date End Date Deborah Quiroga, APPLE CHECKER PCP - General Family Medicine 03/24/16 02/04/23 documented as of this encounter
--- OUTSIDE RECORDS SUMMARY | 2024-04-18 14:40 | XMS_ITS | Encounter Summary ---
Author Organization [facility] Address [facility] [place] [address] Care Team Providers Care Sand Temperer Name Role Phone JunaidAshley hargrovezac Shields APRN Primary Care Provider [phone] Reason for Visit * Consultation (Urgent) - Closed Specialty Diagnoses / Procedures Referred By Contac t Referred To Contact Cardiac Surgery Diagnoses aortic stenosis, consideration for valve replacement Antelmo Burrell MD [address] [place] [address] Alirio Esparza MD [facility] [place] [address] Referral ID Status Reason Start Date Expiration Date V isits Requested Visits Authorized [id number] Closed Connection Center 03/04/2016 03/04/2017 1 1 Encounter Details Date Type Department Care Team (Late st Contact Info) Description 03/24/2016 10:40 AM EDT Office [place] [phone] Alirio Esparza MD Aortic valve stenosis, unspecified [...] This is a patient of Antelmo Burrell [facility] Cardiology. Mrs. Thacker is being sent [...] 30 minute visit, 20 minutes were spent [id number] with the patient discussing aortic stenosis and valve replacement. documented in this encounter Plan of Treatment Upcoming Encounters Date Type Department Care Team (Late st Contact Info) Description 05/12/2024 9:00 AM EDT Appointment Hematology [place] [address] 05/12/2024 10:00 AM EDT Office Visit Hematology [place] [address] Markel Borjas MD [facility] [address] [place] [address] 03/01/2025 4:15 PM EDT Office Visit Dermatology at [place] [address] [facility] [place] [address] Marek Bonilla MD [address] [place] [address] documented as of this encounter Visit Diagnoses Diagnosis Aortic valve stenosis, unspecified etiology documented in this encounter Care Teams Sand Temperer Relationship Specialty Start Date End Date Deborah Quiroga APRN PCP - General Family Medicine 03/24/16 02/04/23 documented as of this encounter
--- OUTSIDE RECORDS SUMMARY | 2024-04-18 14:40 | XMS_ITS | Encounter Summary ---
Author Organization [facility] [place] [address] Care Team Providers Care Green Chain Offbearer Name Role Phone Junaid Deborah Shields APRN Primary Care Provider [phone] Encounter Details Date Type Department Care Team (Latest Contact Info) Description 05/19/2016 11:00 AM EDT Clinical [place] [phone] Nonrheumatic aortic valve stenosis Social History Tobacco [...] AM EDT Appointment Hematology [place] [address] 05/12/2024 10:00 AM EDT Office Visit Hematology [place] [address] Markel Borjas MD [facility] [address] [place] [address] 03/01/2025 4:15 PM EDT Office Visit Dermatology at [place] [address] [facility] [place] [phone] Marek Bonilla MD [address], [place] [address] documented as of this encounter Procedures Procedure [...] (Bezet) 448 ms MUSE SYSTEM Calculated P Yulee 37 degrees MUSE SYSTEM Calculated R Yulee 31 degrees MUSE SYSTEM Calculated T Yulee 25 degrees MUSE SYSTEM INTERPRETATION Normal sinus rhythm Normal ECG No previous ECGs available Confirmed by MD Becca, Deangelo ([id number]) on 05/19/2016 5:23:33 PM MUSE SYSTEM 05/19/2016 11:4 3 AM EDT 05/19/2016 5:23 PM EDT Alirio Esparza MD ECG ORDERABLES [employer] documented in this encounter Visit Diagnoses Diagnosis Nonrheumatic aortic valve stenosis Aortic valve disorders documented in this encounter Care Teams Green Chain Offbearer Relationship Specialty Start Date End Date Deborah Quiroga, ACCOUNTS RECEIVABLE CLERK PCP - General Family Medicine 03/24/16 02/04/23 documented as of this encounter
--- OUTSIDE RECORDS SUMMARY | 2024-04-18 14:40 | XMS_ITS | Encounter Summary ---
Author Organization [facility] Address [facility] [place] [address] Care Team Providers Care Package Center Supervisor Name Role Phone Ashley Quirogan Cornelius ANURAG Primary Care Provider [phone] Encounter Details Date Type Department Care Team (Latest Contact Info) Description 05/19/2016 11:20 AM EDT Laboratory [place] [phone] Nonrheumatic aortic valve stenosis Social History Tobacco [...] AM EDT Appointment [place] [phone] 05/12/2024 10:00 AM EDT Office Visit [place] [address] Markel Borjas MD [facility] [address] HEMATOLOGY AND ONCOLOGY [place], [place] [phone] 03/01/2025 4:15 PM EDT Office Visit Dermatology at [address] [address] Marek Bonilla MD [address], [place] [address] documented as of this encounter Procedures Procedure Name Priority Date/Time Associated Diagnosis Comments SCAN, PERIPHERAL BLOOD Routine 05/19/2016 11:32 AM EDT HEMOGRAM Routine 05/19/2016 11:32 AM EDT Nonrheumatic aortic valve stenosis DIFFERENTIAL, AUTOMATED Routine 05/19/2016 11:32 AM EDT Nonrheumatic aortic valve stenosis TYPE AND SCREEN, SDP (FUTURE SURGERY, [facility] SAME DAY PROGRAM ONLY) Routine 05/19/2016 11:32 [...] (05/19/2016 11:32 AM EDT) Plat estimate Normal [facility] RBC Morphology Normal [facility] Blood specimen (specimen) 05/19/2016 11:32 AM EDT 05/19/2016 11:41 AM EDT Narrative Resulting Agency Comment Spec In Lab Alirio Esparza MD HEMATOLOGY ORDERABL ES [facility] [place] [address] * (ABNORMAL) Differential, Automated (05/19/2016 11:32 AM EDT) Pathologist Iron Neutrophil % 25.9 % [facility] Neutrophil Absolute 0.42(Crit ical) 1.70 - 6.10 x10(3)/[facility] Comment: This result has been called to DR ALIRIO ESPARZA by Alivia Ibarra on 05 19 2016 at 1228, and has been read back. Lymph % 59.9 % [facility] Lymphocytes Abs 1.0 0.9 - 3.2 x10(3)/[facility] Monocyte % 13.0 % [facility] Monocyte Abs 0.2(L) 0.3 - 0.9 x10(3)/[facility] Eos % 0.6 % [facility] Eosinophils Abs 0.0 0.0 - 0.4 x10(3)/[facility] Basophil % 0.6 % [facility] Baso Absolute 0.0 0.0 - 0.1 x10(3)/[facility] Immature Gran % 0.00 % [facility] Comment: Immature granulocytes(IG's)percentage and absolute count will include metamyelocytes, myelocytes, and promyelocytes. Blood smears from CBCs yielding IG's will be scanned manually for concordance. If this scan disagrees with the automated IG or if promyelocytes are noted, a manual differential will be performed. Immature Gran Absolute 0.00 0.00 - 0.04 x10(3)/[facility] Blood specimen (specimen) 05/19/2016 11:32 AM EDT 05/19/2016 11:41 AM EDT Narrative Resulting Agency Comment Spec In Lab Alirio Esparza MD HEMATOLOGY ORDERABL ES [facility] [place] [address] * (ABNORMAL) Hemogram (05/19/2016 11:32 AM EDT) White Blood Cell 1.6(Criti gabrielle) 4.0 - 9.5 x10(3)/mc L [facility] Comment: This result has been called to DR ALIRIO ESPARZA by Alivia Ibarra on 05 19 2016 at 1228, and has been read back. Red Blood Cell 3.96(L) 4.00 - 5.21 x10(6)/mc L [facility] Hemoglobin 12.5 11.7 - 15.5 gm/dL [facility] Hematocrit 37.9 35.7 - 45.8 % [facility] Mean Cell Volume 95.7(H) 82.6 - 94.4 fL [facility] Mean Cell Hemoglobin 31.6 27.1 - 32.0 pg [facility] Mean Cell Hemoglobin Concentration 33.0 31.7 - 35.0 gm/dL [facility] Platelet 227 145 - 357 x10(3)/ L [facility] RDW Standard Deviation 40.5 37.0 - 46.0 [facility] RDW coefficient of variation 11.5 11.5 - 14.1 % [facility] Mean Platelet Volume 8.4 7.6 - 12.9 fL [facility] NRBC% auto 0.0 % [facility] NRBC Absolute 0.000 0.000 - 0.000 x10(3)/ L [facility] Blood specimen (specimen) 05/19/2016 11:32 AM EDT 05/19/2016 11:41 AM EDT Narrative Resulting Agency Comment Spec In Lab Alirio Esparza MD HEMATOLOGY ORDERABL ES [facility] [place] [address] * Antibody screen (05/19/2016 11:32 AM EDT) Ab Screen Interp Negative [facility] Expires at [id number] on: 07/03/2016 [facility] Comment: Corrected from 06/11/16 12:00 [Unknown] on 06/09/16 05:51 by Bethanie Tomlinson I.. Corrected from 07/03/16 12:00 [Unknown] on 05/21/16 06:00 by Shelia Barrera Blood specimen (specimen) 05/19/2016 11:32 AM EDT 05/19/2016 11:35 AM EDT Narrative Resulting Agency Comment Spec In Lab Alirio Esparza MD BLOOD BANK LAB ORDCornelius ALEJO [facility] [place] [address] * ABO/Rh Typing (05/19/2016 11:32 AM EDT) Pathologist [facility] ABORH Type B Pos [facility] Blood specimen (specimen) 05/19/2016 11:32 AM EDT 05/19/2016 11:35 AM EDT Narrative Resulting Agency Comment Spec In Lab Alirio Esparza MD BLOOD BANK LAB BETH ALEJO [facility] [place] [address] * Basic Metabolic Panel (non-fasting) (05/19/2016 11:32 AM EDT) [facility] Glucose 86 65 - 199 mg/dL [facility] Comment:Diabetes: >=200 mg/d L plus symptoms Blood Urea Nitrogen 13 8 - 18 mg/dL [facility] Creatinine 0.95 0.70 - 1.20 mg/dL [facility] Comment: Please note that the pediatric reference intervals supplied above were not validated at [facility]. Results from pediatric patients should be interpreted in conjunction to the patient's age, height and muscle mass. Sodium 140 135 - 145 mmol/L [facility] Potassium 4.3 3.5 - 5.0 mmol/L [facility] Comment: Please note: ??Patients with WBC >100,000 may have falsely elevated Potassium levels. ??For accurate Potassium quantification in these patients send serum separator tube (gold top) for subsequent determinations. ??Contact the Clinical Chemistry Laboratory if there are any questions. Chloride 101 98 - 107 mmol/L [facility] Carbon Dioxide 27 22 - 31 mmol/L [facility] Anion Gap 12 5 - 15 mmol/L [facility] Calcium 10.1 8.5 - 10.5 mg/dL [facility] Est Glomerular Filtration Rate 60 >=60 [facility] Comment: This [...] the following links into your internet browser. [email or web address] Blood specimen (specimen) 05/19/2016 11:32 AM EDT 05/19/2016 11:41 AM EDT Narrative Resulting Agency Comment Spec In Lab Alirio Esparza MD CHEMISTRY ORDERABLE S [facility] [place] [address] documented in this encounter Visit Diagnoses Diagnosis Nonrheumatic aortic valve stenosis Aortic valve disorders documented in this encounter Care Teams Package Center Supervisor Relationship Specialty Start Date End Date Deborah Quiroga APRN PCP - General Family Medicine 03/24/16 02/04/23 documented as of this encounter
--- OUTSIDE RECORDS SUMMARY | 2024-04-18 14:40 | XMS_ITS | Encounter Summary ---
Author Organization [facility] [place] [address] Care Team Providers Care Security Control Center Operator Name Role Phone EitanDanni ANURAG Primary Care Provider [phone] [phone] Encounter Details Date Type Department Care Team (Late st Contact Info) Description 01/22/2014 Telephone Cardiology at [address] [phone] Cynthia Arrington LPN Social History Tobacco Use [...] LPN - 01/23/2014 2:39 PM EDT This board writer did not receive a call back [...] AM EDT Appointment Hematology [place] [address] 05/12/2024 10:00 AM EDT Office Visit Hematology [place] [address] Markel Borjas MD [facility] [address] [place] [address] 03/01/2025 4:15 PM EDT Office Visit Dermatology at [place] [address] [facility] [place] [phone] Marek Bonilla MD [address] [facility], [place] [address] documented as of this encounter Visit Diagnoses Not on filedocumented in this encounter Care Teams Security Control Center Operator Relationship Specialty Start Date End Date Danni Laird APRN [address] [place] [address] PCP - General 01/23/14 11/11/14 documented as of this encounter
--- OUTSIDE RECORDS SUMMARY | 2024-04-18 14:40 | XMS_ITS | Encounter Summary ---
Author Organization [facility] [place] [address] Care Team Providers Care President Financial Institution Name Role Phone Deborah Quiroga ANURAG Primary Care Provider [phone] Encounter Details Date Type Department Care Team (Late st Contact Info) Description 05/22/2016 Orders Only Cardiology at [address] [phone] Chele Randolph PA [facility] [address] CARDIOLOGY DEPT. [place], [place] [phone] Aortic valve stenosis, unspecified etiology Social History [...] AM EDT Appointment Hematology [place] [address] 05/12/2024 10:00 AM EDT Office Visit Hematology [place] [address] Markel Borjas MD [facility] [address] HEMATOLOGY AND ONCOLOGY [place], [place] [address] 03/01/2025 4:15 PM EDT Office Visit Dermatology at [place] [address] [facility] [place] [phone] Marek Bonilla MD [address], [place] [address] documented as of this encounter Procedures Procedure Name Priority Date/Time Associated Diagnosis Comments CARDIAC CATHETERIZATION Routine 06/03/20 16 9:13 AM EDT Aortic valve stenosis, unspecified etiology documented in this encounter Results * CARDIAC CATHETERIZATION (06/03/2016 9:13 AM EDT) Anatomical Region Laterality Modality Other Narrative 06/03/2016 10:13 AM EDT ?[facility] ? Cardiac Catheterization/Intervention Report ? Patient Name: Purnima Thacker. ? Procedure Date: 06/03/2016 ? A #: [id number] ? Primary Physician: Nitesh Escobedo ? Case #: [id number] ? File Name: [id number] ? Catheterization Order Number: [id number] ? [facility] ? Final Report [place], [place] ? Patient Name: ? Purnima M. Kirstie ? ID#: ?[id number] ? : ?1955 ? Procedure Date: ? June 03, 2016 ? Case #: ? [id number] ? Room: ? 1 ? Case Physician: ? Arabella BeaversD. ? Start: ?08:22 ?Fellow: ? Felicia Corrigan [...] no symptom, no angina (w/i 14 days). White ?Cardiovascular Society angina class was 0. This [...] Report Last Ammended: 09/21/2016 ??09:37 ? Procedure Nitesh Marroquin, MD - 09/21/2016 [facility] Cardiac Catheterization/Intervention Report Patient Name: Purnima Thacker Procedure Date: 06/03/2016 A #: [id number] Primary Physician: Nitesh Escobedo Case #: [id number] File Name: [id number] Catheterization Order Number: [id number] [facility] FinalReport [place], [place] Patient Name: Purnima Thacker ID#:[id number] :1955 Procedure Date: June 03, 2016 Case [...] with: no symptom, no angina (w/i 14 days).White Cardiovascular Society angina class was 0. This [...] Nitesh Escobedo M.D. Electronically Signed by: Nitesh E Fanny, M.D. Report Finalized: 06/03/2016 10:04 Report Last Ammended: 09/21/2016 09:37 Nitesh Escobedo MD CARDIAC CATH ORDERAB LES documented in this encounter Visit Diagnoses Diagnosis Aortic valve stenosis, unspecified etiology Aortic valve stenosis, unspecified etiology documented in this encounter Care Teams President Financial Institution Relationship Specialty Start Date End Date Deborah Quiroga, BOARD MACHINE SET UP OPERATOR PCP - General Family Medicine 03/24/16 02/04/23 documented as of this encounter
--- OUTSIDE RECORDS SUMMARY | 2024-04-18 14:40 | XMS_ITS | Encounter Summary ---
[place] [address] Care Team Providers Care Mitten Sewer Name Role Phone Jerel Sofia Garcia APRN Primary Care Provider [phone] Encounter Details Date Type Department Care Team (Late st Contact Info) Description 11/12/2014 8:10 AM EDT - 11/12/2014 11:59 PM EDT Hospital [place] [phone] CLINIC, DR ABE Burrell, Antelmo Porter MD [address] [place] [address] Discharge Disposition: Home Social History Tobacco Use [...] AM EDT Appointment Hematology [place] [address] 05/12/2024 10:00 AM EDT Office Visit Hematology [place] [phone] Markel Borjas MD [facility] [address] [place] [address] 03/01/2025 4:15 PM EDT Office Visit Dermatology at [place] [address] [place] [address] Marek Bonilla MD [address] [facility] [address], [place] [address] documented as of this encounter Procedures Procedure [...] mLs documented in this encounter Care Teams Mitten Sewer Relationship Specialty Start Date End Date Sofia Beltrán APRN [address] [place] [address] PCP - General 11/12/14 03/23/16 documented as of this encounter
--- OUTSIDE RECORDS SUMMARY | 2024-04-18 14:40 | XMS_ITS | Encounter Summary ---
Author [place] [address] Care Team Providers Care Masonry Inspector Name Role Phone Mitchell Wilkes MD Primary Care Provider [phone] Reason for Visit * Reason Onset Date Comments Other 01/18/2014 Encounter Details Date Type Department Care Team (Late st Contact Info) Description 01/18/2014 Telephone Cardiology at [address] [address] Jesusita Garces Other Social History [...] Appointment Hematology [place] [address] 05/12/2024 10:00 AM EDT Office Visit [place]ematology [place] [address] Markel Borjas MD [facility] [address] [place] [address] 03/01/2025 4:15 PM EDT Office Visit Dermatology at [place] [address] [place] [address] Maerk Bonilla MD [address], [address] Katherine [place] [address] documented as of this encounter Visit Diagnoses Not on filedocumented in this encounter Care Teams Masonry Inspector Relationship Specialty Start Date End Date Mitchell Wilkes MD [facility] PCP - General 06/24/10 01/19/14 documented as of this encounter
--- OUTSIDE RECORDS SUMMARY | 2024-04-18 14:40 | XMS_ITS | Encounter Summary ---
Author Organization [facility] [place] [address] Care Team Providers Care Venture Capitalist Name Role Phone Eitan Danni ANURAG Primary Care Provider [phone] Encounter Details Date Type Department Care Team (Late st Contact Info) Description 01/23/2014 9:25 AM EDT - 01/23/2014 10:25 AM EDT [place] [address] Alan Jacobson MD [facility] [place] [address] CARDIAC CATHETERIZATION Social History Tobacco Use Types [...] by your doctor, do not take any ohjz-[id number] medicines or herbal preparations without first discussing this with your doctor or pharmacist. There is the possibility of side effect and interactions when these are combined. Follow up Care Who to Call with Questions or Problems If there are any questions or problems that you think might be related to your cardiac cath or angioplasty, contact the editor farm journal brazer induction by calling [facility] at . documented in this encounter [...] AM EDT Appointment Hematology [place] [address] 05/12/2024 10:00 AM EDT Office Visit Hematology [place] [phone] Markel Borjas MD [facility] [address] [place] [address] 03/01/2025 4:15 PM EDT Office Visit Dermatology at [place] [address] [facility] [place] [address] Marek Bonilla MD [address], [place] [address] documented as of this encounter Procedures Procedure Name Priority Date/Time Associated Diagnosis Comments ECHOCARDIOGRAM TRANSTHORACIC Routine 01/23/2014 3:17 PM EDT SOB (shortness of breath) documented in this encounter Results * Echocardiogram Transthoracic(Leb) (01/23/2014 3:17 PM EDT) [facility] EF 50 [employer] SYSTEM Anatomical Region Laterality Modality Other 01/23/2014 Narrative 01/23/2014 4:35 PM EDT Procedure: ? Transthoracic Echocardiogram Patient: ? ANDREW ONESIMO M ?(Age): 1955(58) Med Rec#: ?[id number] ? Sex: ?F ? Site Loc: [facility] ? Ht / Wt: ??158(cm)/93(kg) Pt. Loc: ? Adult Floor ?BSA: ?2.02 Study Date: ?01/23/2014 ? Pt. Type: Inpatient Tape: ? Referring: Lee Kincaid ([id number]) Referring: ANNALISA Neurology Director: Miguel Beverly Diagnosis:CPT Code(s): ??Echo Full (08856), ??Spectral Doppler (27315), Color Doppler (73820), Indication(s): ??Aortic stenosis Rhythm: Sinus HR ?BP [...] Mid-Inferior ?Hypokinetic ? Mid-Inferoseptal ?Hypokinetic ? [place]-Septal ? Hypokinetic ? [place]-Anterior ? Hypokinetic ? [place]-Lateral ?Hypokinetic ? [place]-Inferior ? Hypokinetic ? [place]-Tip ?Hypokinetic ? Chambers ?Value ?Units (Range) ? [...] 16:34:37 Images reviewed and interpretation verified [facility] Cardiac Ultrasound Laboratory Procedure Note Lee Kincaid MD - 01/23/2014 Procedure: Transthoracic Echocardiogram Patient: ANDREW Mejias (Age): 1955(58) Med Rec#: [id number] Sex: F Site Loc: [facility] Ht / Wt: 158(cm)/93(kg) Pt. Loc: Adult Floor BSA: 2.02 Study Date: 01/23/2014 Pt. Type: Inpatient Tape: Referring: Lee Kincaid ([id number]) Referring: ANNALISA Neurology Director: Miguel Beverly Diagnosis:CPT Code(s): Echo Full (43330), Spectral Doppler (49485), Color Doppler (72411), Indication(s): Aortic stenosis Rhythm: Sinus HR BP [...] Mid-Posterolateral Hypokinetic Mid-Inferior Hypokinetic Mid-Inferoseptal Hypokinetic [place]-Septal Hypokinetic [place]-Anterior Hypokinetic [place]-Lateral Hypokinetic [place]-Inferior Hypokinetic [place]-Tip Hypokinetic Chambers Value Units (Range) IVSd 2D [...] 16:34:37 Images reviewed and interpretation verified [facility] Cardiac Ultrasound Laboratory Lee Kincaid MD [...] RN) documented in this encounter Care Teams Venture Capitalist Relationship Specialty Start Date End Date Danni Laird APRN [address] [place] [address] PCP - General 01/23/14 11/11/14 documented as of this encounter
--- OUTSIDE RECORDS SUMMARY | 2024-04-18 14:40 | XMS_ITS | Encounter Summary ---
Author Organization [facility] Address [facility] [place] [address] Care Team Providers Care Change Of Address Clerk Name Role Phone JunaidAshley hargrovezac Shields APRN Primary Care Provider [phone] Reason for Visit * Auth/Cert Specialty Diagnoses / Procedures Referred By Crispin t Referred To Contact Diagnoses AVS Procedures CARDIAC CATHETERIZATION Referral ID Status Reason Start Date Expiration Date Visits Re quested Visits Authorized [id number] 1 1 Encounter Details Date Type Department Care Team (Late st Contact Info) Description 06/03/2016 6:32 AM EDT - 06/03/2016 1:10 PM EDT Hospital Encounter [place] [phone] Anjum Oliveros II, MD [facility] [place] [address] Mario Alberto Escobedo MD [facility] [place] [address] Aortic valve stenosis, unspecified etiology; Nonrheumatic aortic [...] by your doctor, do not take any ynpn-ovl-psaokiq medicinesor herbal preparations without first discussing this with your doctor or pharmacist. There is the possibility of side effects and interactions when these are combined. Follow Up Care Who to call with questions or problems If there are any questions or problems that you think might be related to your cardiac cath or angioplasty, contact the agency sales development associate habilitative interventionist by calling [facility] at . * Patient Instructions* Felicia Corrigan - 06/03/2016 9:33 AM EDT Cardiology Instructions Call your doctor if: Chest pain, dyspnea, pain or swelling in legs occurs. If you have non-emergent questions between now and the time of your follow up appointments: -During 8am-5pm Wednesday through Wednesday call [phone] to speak with a nurse in the cardiology clinic -All other times call [phone] and ask to speak to the modeling and simulation analyst habilitative interventionist. MEDICATIONS - restart your spironolactone, discontinue prior [...] Appointments: Primary care provider: Cardiology: Deborah Hahn, NECKTIE CENTRALIZING MACHINE OPERATOR [phone] Follow up as planned or as needed. Dr. Esparza [phone] Other follow-up appointment: Hematology - Dr. Mario [...] AM EDT Appointment Hematology [place] [address] 05/12/2024 10:00 AM EDT Office Visit Hematology [place] [address] Markel Borjas MD [facility] [address] [place] [address] 03/01/2025 4:15 PM EDT Office Visit Dermatology at [place] [address] [facility] [place] [address] Marek Bonilla MD [address], [place] [address] documented as of this encounter Procedures Procedure [...] EDT Mario Alberto Escobedo MD CHEMISTRY ORDERABLES [facility] [place] [address] * Methylmalonic acid, serum (06/03/2016 11:45 AM EDT) Methylmalonic Acid (NOVEMBER) 0.21 <=0.40 nmol/mL [facility] Comment: Test Performed by: [address] [address] Seo Manager: Raymond Chaudhry II, M.D., Ph.D. Blood specimen (specimen) 06/03/2016 11:45 AM EDT 06/03/2016 1:57 PM EDT Narrative Resulting Agency Comment Spec In Lab Mario Alberto Escobedo MD LAB SEND OUT ORDERAB LES Performing Organization Address [facility] Co de Phone Number [facility] [place] [address] * Granulocyte Antibody (06/03/2016 11:45 AM EDT) Granulocyte Ab (NOVEMBER) Negative Not Applicable [facility] Comment: ADDITIONAL INFORMATION Method: Immunofluorescent Assay Performing Laboratory CLIA# [id number] This test was developed and its performance characteristics determined by [facility] in a manner consistent with CLIA requirements. This test has not been cleared or approved by the U.S. Food and Drug Administration. Test Performed by: [place] [address] Seo Manager: Raymond Chaudhry II, M.D., Ph.D. Blood specimen (specimen) 06/03/2016 11:45 AM EDT 06/03/2016 1:57 PM EDT Narrative Resulting Agency Comment Spec In Lab Mario Alberto Escobedo MD LAB SEND OUT ORDERAB LES Performing Organization Address [facility] Co de Phone Number [facility] [place] [address] * TSH (06/03/2016 11:45 AM EDT) Thyroid Stimulating Hormone 2.18 0.27 - 4.20 mcIU/mL [facility] Blood specimen (specimen) 06/03/2016 11:45 AM EDT 06/03/2016 12:11 PM EDT Narrative Resulting Agency Comment Spec In Lab Mario Alberto Escobedo MD CHEMISTRY ORDERABLES Performing Organization Address [facility]/ZIP Co de Phone Number [facility] [place] [address] * Homocysteine Total, Plasma (06/03/2016 11:45 AM EDT) Homocystine 9 <=15 mcmol/L [facility] Blood specimen (specimen) 06/03/2016 11:45 AM EDT 06/03/2016 12:11 PM EDT Narrative Resulting Agency Comment Spec In Lab Mario Alberto Escobedo MD CHEMISTRY ORDERABLES Performing Organization Address City/[facility]/ZIP Co de Phone Number [facility] [place] [address] * Folate, serum (06/03/2016 11:45 AM EDT) Folate >20.0 4.8 - 24.2 ng/mL [facility] Blood specimen (specimen) 06/03/2016 11:45 AM EDT 06/03/2016 12:04 PM EDT Narrative Resulting Agency Comment Spec In Lab Mario Alberto Escobedo MD CHEMISTRY ORDERABLES Performing Organization Address City/[facility]/ZIP Co de Phone Number [facility] [place] [address] * (ABNORMAL) Sedimentation rate (06/03/2016 11:45 AM EDT) Sedimentation Rate Automated 41(H) 0 - 20 mm/hr [facility] Blood specimen (specimen) 06/03/2016 11:45 AM EDT 06/03/2016 12:04 PM EDT Narrative Resulting Agency Comment Spec In Lab Mario Alberto Escobedo MD HEMATOLOGY ORDERABLE S Performing Organization Address City/[facility]/ZIP Co de Phone Number [facility] [place] [address] * Lactate Dehydrogenase (06/03/2016 11:45 AM EDT) Lactate Dehydrogenase 164 110 - 220 unit/L [facility] Blood specimen (specimen) 06/03/2016 11:45 AM EDT 06/03/2016 12:11 PM EDT Narrative Resulting Agency Comment Spec In Lab Mario Alberto Escobedo MD CHEMISTRY ORDERABLES [facility] [place] [address] * Comprehensive metabolic panel (non-fasting) (06/03/2016 11:45 [...] the following links into your internet browser. [email or web address] Blood specimen (specimen) 06/03/2016 11:45 AM EDT 06/03/2016 12:11 PM EDT Narrative Resulting Agency Comment Spec In Lab Mario Alberto Escobedo MD CHEMISTRY ORDERABLES Performing Organization Address City/State/[facility] Co de Phone Number [facility] [place] [phone] documented in this encounter Visit Diagnoses Diagnosis [...] Hernandez) documented in this encounter Care Teams Change Of Address Clerk Relationship Specialty Start Date End Date Deborah Quiroga, NECKTIE CENTRALIZING MACHINE OPERATOR PCP - General Family Medicine 03/24/16 02/04/23 documented as of this encounter
--- OUTSIDE RECORDS SUMMARY | 2024-04-18 14:40 | XMS_ITS | Encounter Summary ---
Author Organization [facility] [place] [address] Care Team Providers Care Insulation Sprayer Name Role Phone Danni Laird SALES ASSOCIATE Primary Care Provider [phone] Encounter Details Date Type Department Care Team (Late st Contact Info) Description 01/23/2014 Orders Only Cardiology at [address] [address] Lee Kincaid MD [facility] [address] CARDIOLOGY [place], [place] [id number] SOB (shortness of breath) (Primary Dx) Social [...] AM EDT Appointment Hematology [place] [address] 05/12/2024 10:00 AM EDT Office Visit Hematology [place] [address] Markel Borjas MD [facility] [place] [address] 03/01/2025 4:15 PM EDT Office Visit Dermatology at [place] [address] [facility] [place] [address] Marek Bonilla MD [address], [place] [address] documented as of this encounter Results * Echocardiogram Transthoracic(Leb) (01/23/2014 3:17 PM EDT) EF 50 HEARTLAB SYSTEM Anatomical Region Laterality Modality Other 01/23/2014 Narrative 01/23/2014 4:35 PM EDT Procedure: ? Transthoracic Echocardiogram Patient: ? ANDREW ECHOLS M ?(Age): 1955(58) Med Rec#: ?[id number] ? Sex: ?F ? Site Loc: ?[facility] ? Ht / Wt: ??158(cm)/93(kg) Pt. Loc: ? Adult Floor ?BSA: ?2.02 Study Date: ?01/23/2014 ? Pt. Type: Inpatient Tape: ? Referring: Lee Kincaid ([id number]) Referring: ANNALISA Director Operating Room: Miguel Beverly Diagnosis:CPT Code(s): ??Echo Full (01099), ??Spectral Doppler (40809), Color Doppler (22506), Indication(s): ??Aortic stenosis Rhythm: Sinus HR ?BP [...] Mid-Inferior ?Hypokinetic ? Mid-Inferoseptal ?Hypokinetic ? [place]-Septal ? Hypokinetic ? [place]-Anterior ? Hypokinetic ? [place]-Lateral ?Hypokinetic ? [place]-Inferior ? Hypokinetic ? [place]-Tip ?Hypokinetic ? Chambers ?Value ?Units (Range) ? [...] Patient: ANDREW Mejias (Age): 1955(58) Med Rec#: [id number] Sex: F Site Loc: [facility] Ht / Wt: 158(cm)/93(kg) Pt. Loc: Adult Floor BSA: 2.02 Study Date: 01/23/2014 Pt. Type: Inpatient Tape: Referring: Lee Kincaid ([id number]) Referring: ANNALISA Director Operating Room: Miguel Beverly Diagnosis:CPT Code(s): Echo Full (35176), Spectral Doppler (36890), Color Doppler (22248), Indication(s): Aortic stenosis Rhythm: Sinus HR BP [...] Mid-Posterolateral Hypokinetic Mid-Inferior Hypokinetic Mid-Inferoseptal Hypokinetic [place]-Septal Hypokinetic [place]-Anterior Hypokinetic [place]-Lateral Hypokinetic [place]-Inferior Hypokinetic [place]-Tip Hypokinetic Chambers Value Units (Range) IVSd 2D [...] (2 to 4) DOI 0.35 AV pk ewro 2.5 m/sec (1 to 1.7) LVOT pk [...] breath documented in this encounter Care Teams Insulation Sprayer Relationship Specialty Start Date End Date Danni Laird APRN [address] [facility] [place] [address] PCP - General 01/23/14 11/11/14 documented as of this encounter
--- OUTSIDE RECORDS SUMMARY | 2024-04-18 14:40 | XMS_ITS | Encounter Summary ---
Author Organization [facility] Address [facility] [place] [address] Care Team Providers Care Database Management Specialist Name Role Phone EitanMagnusDanni ANURAG Primary Care Provider [phone] Encounter Details Date Type Department Care Team (Latest Contact Info) Description 01/23/2014 7:45 AM EDT - 01/23/2014 5:50 PM EDT Hospital En[place] [address] Alan Jacobson MD [facility] [place] [address] Cardiomyopathy; SOB (shortness of breath) Discharge Disposition: [...] by your doctor, do not take any dtis-aui-vzljzhm medicines or herbal preparations without first discussing this with your doctor or pharmacist. There is the possibility of side effect and interactions when these are combined. Follow up Care Who to Call with Questions or Problems If there are any questions or problems that you think might be related to your cardiac cath or angioplasty, contact the staffing account manager senior consumer insights consultant by calling [facility] [...] AM EDT Appointment [place]ology [place] [address] 05/12/2024 10:00 AM EDT Office Visit [place]ematology [place] [address] Markel Borjas MD [facility] DR [place] [address] 03/01/2025 4:15 PM EDT Office Visit Dermatology at [place] [address] [facility] [place] [address] Marek Bonilla MD [address], [place] [address] documented as of this encounter Procedures Procedure Name Priority Date/Time Associated Diagnosis Comments ECHOCARDIOGRAM TRANSTHORACIC Routine 01/23/2014 3:17 PM EDT SOB (shortness of breath) documented in this encounter Results * Echocardiogram Transthoracic(Leb) (01/23/2014 3:17 PM EDT) [facility] EF 50 HEARTLAB SYSTEM Anatomical Region Laterality Modality Other 01/23/2014 Narrative 01/23/2014 4:35 PM EDT Procedure: ? Transthoracic Echocardiogram Patient: ? ANDREW ONESIMO M ?(Age): 1955(58) Med Rec#: ?[id number] ? Sex: ?F ? Site Loc: [facility] ? Ht / Wt: ??158(cm)/93(kg) Pt. Loc: ? Adult Floor ?BSA: ?2.02 Study Date: ?01/23/2014 ? Pt. Type: Inpatient Tape: ? Referring: Lee Kincaid ([id number]) Referring: ANNALISA Risk Prevention Engineer: Miguel Beverly Diagnosis:CPT Code(s): ??Echo Full (37604), ??Spectral Doppler (08268), Color Doppler (33033), Indication(s): ??Aortic stenosis Rhythm: Sinus HR ?BP [...] ? Mid-Inferior ?Hypokinetic ? Mid-Inferoseptal ?Hypokinetic ? [place]-Septal ? Hypokinetic ? [place]-Anterior ? Hypokinetic ? [place]-Lateral ?Hypokinetic ? [place]-Inferior ? Hypokinetic ? [place]-Tip ?Hypokinetic ? [place] ?Value ?Units (Range) ? [...] Patient: ANDREW Mejias (Age): 1955(58) Med Rec#: [id number] Sex: F Site Loc: [facility] Ht / Wt: 158(cm)/93(kg) Pt. Loc: Adult Floor BSA: 2.02 Study Date: 01/23/2014 Pt. Type: Inpatient Tape: Referring: Lee Kincaid ([id number]) Referring: ANNALISA Risk Prevention Engineer: Miguel Beverly Diagnosis:CPT Code(s): Echo Full (15283), Spectral Doppler (22468), Color Doppler (72556), Indication(s): Aortic stenosis Rhythm: Sinus HR BP [...] Hypokinetic Mid-Posterolateral Hypokinetic Mid-Inferior Hypokinetic Mid-Inferoseptal Hypokinetic [place]-Septal Hypokinetic [place]-Anterior Hypokinetic [place]-Lateral Hypokinetic [place]-Inferior Hypokinetic [place]-Tip Hypokinetic [place] Value Units (Range) IVSd 2D [...] RN) documented in this encounter Care Teams Database Management Specialist Relationship Specialty Start Date End Date Danni Laird APRN [address] [place] [address] PCP - General 01/23/14 11/11/14 documented as of this encounter
--- OUTSIDE RECORDS SUMMARY | 2024-04-18 14:40 | XMS_ITS | Encounter Summary ---
Author Organization [facility] Address [facility] [place] [address] Care Team Providers Care Head Bookkeeper Name Role Phone Deborah Quiroga APRN Primary Care Provider [phone] Encounter Details Date Type Department Care Team (Latest Contact Info) Description 05/19/2016 11:52 AM EDT - 05/19/2016 11:59 PM EDT Hospital Encounter XRay at [address] [place] [address] Alirio Esparza MD Nonrheumatic aortic valve stenosis [...] EDT Appointment Hematology [place] [address] 05/12/2024 10:00 AM EDT Office Visit Hematology [place] [address] Markel Borjas MD [facility] [address] HEMATOLOGY [place] [address] 03/01/2025 4:15 PM EDT Office Visit Dermatology at [place] [address] [facility] [place] [address] Marek Bonilla MD [address] [facility] [place] [address] documented as of this encounter Procedures Procedure [...] disorders documented in this encounter Care Teams Head Bookkeeper Relationship Specialty Start Date End Date Deborah Quiroga, CORROSION CONTROL TECHNICIAN PCP - General Family Medicine 03/24/16 02/04/23 documented as of this encounter
--- OUTSIDE RECORDS SUMMARY | 2024-04-18 14:40 | XMS_ITS | Encounter Summary ---
[place] [address] Care Team Providers Care Seismic Prospecting Supervisor Name Role Phone Ashley Quirogan Cornelius ANURAG Primary Care Provider [phone] Encounter Details Date Type Department Care Team (Late st Contact Info) Description 03/24/2016 Notes Only [place] [address] Alfa Lua Social History Tobacco Use Types [...] assessments completed: Wadsworth Score: 6/6 IADL: 7/7 Research Food Technologist Strength Trials: 18.4, 15.0, 16.8 (right hand dominant) 5 meter walk test in seconds x3: 4.98, 4.88, 4.45 KCCQol: 98% Alfa Lua documented in this encounter Plan of Treatment Upcoming Encounters Date Type Department Care Team (Late st Contact Info) Description 05/12/2024 9:00 AM EDT Appointment Hematology [place] [address] 05/12/2024 10:00 AM EDT Office Visit Hematology [place] [address] Markel Borjas MD [facility] DR HEMATOLOGY [place] [address] 03/01/2025 4:15 PM EDT Office Visit Dermatology at [place] [address] [facility] [place] [address] Marek Bonilla MD [address] [place] [address] documented as of this encounter Visit Diagnoses Not on filedocumented in this encounter Care Teams Seismic Prospecting Supervisor Relationship Specialty Start Date End Date Deborah Quiroga APRN PCP - General Family Medicine 03/24/16 02/04/23 documented as of this encounter
--- OUTSIDE RECORDS SUMMARY | 2024-04-18 14:40 | XMS_ITS | Encounter Summary ---
Author Organization [facility] [place] [address] Care Team Providers Care Patient Scheduling Manager Name Role Phone Mitchell Wilkes MD Primary Care Provider [phone] Encounter Details Date Type Department Care Team (Late st Contact Info) Description 01/19/2014 Orders Only Cardiology at [address] [address] Chele Randolph PA [facility] [place] [address] Cardiomyopathy (Primary Dx) Social History Tobacco Use [...] AM EDT Appointment [place]ematology [place] [address] 05/12/2024 10:00 AM EDT Office Visit [place]ematology [place] [address] Markel Borjas MD [facility] [address] HEMATOLOGY [place] [address] 03/01/2025 4:15 PM EDT Office Visit Dermatology at [place] [address] [place] [address] Marek Bonilla MD [address], [place] [address] documented as of this encounter Procedures Procedure [...] cardiomyopathies documented in this encounter Care Teams Patient Scheduling Manager Relationship Specialty Start Date End Date Mitchell Wilkes MD [facility] PCP - General 06/24/10 01/19/14 documented as of this encounter
--- OUTSIDE RECORDS SUMMARY | 2024-04-20 14:21 | XMS_ITS | Encounter Summary ---
Author Organization [facility] Address [address] [place] [address] Care Team Providers Care Airline Operations Agent Name Role Phone Scott, Ashley WILLIAM Primary Care Provider [phone] Encounter Details Date Type Department Care Team (Late st Contact Info) Description 03/21/[address] [facility] Pathology & Laboratory Medicine - [address] [address] Consuelo Guerrero, DO [address] [place], [place] [address] Encounter for other general examination Social History [...] LORY Negative 03/21/2024 22:31 EDT [facility] BLOOD BANK Blood VENOUS BLOOD / Unknown 03/21/2024 13:00 EDT 03/21/2024 21:51 EDT Consuelo Guerrero DO BLOOD BANK TESTS [facility] BLOOD BANK [address] [place] [address] documented in this encounter Visit Diagnoses Diagnosis Encounter for other general examination documented in this encounter Care Teams Airline Operations Agent Relationship Specialty Start Date End Date Ashley Chavez ARNP [address] [place] [address] PCP - General 07/11/10 documented as of this encounter
--- OUTSIDE RECORDS SUMMARY | 2024-04-20 14:21 | XMS_ITS | Clinical Summary ---
Author Organization [facility] Address [address] [place] [address] Care Team Providers Care Show Host/Hostess Name Role Phone Ashley Chavez Primary Care Provider [phone] Encounters Date Type Department Care Team Description 03/22/2024 Lab Requisition [facility] Pathology & Laboratory [address] [address] Consuelo Guerrero, DO Diaphragmatic hernia without obstruction or gangrene; Anemia, unspecified 03/21/2024 Lab Requisition [facility] Pathology & Laboratory [address] [address] Consuelo Guerrero, DO Encounter for other general examination 03/21/2024 Lab Requisition [facility] Pathology & Laboratory [address] [address] Outr Resulting Lab, Provider from Last 3 [...] 13:00 EDT) LORY Negative 03/21/2024 22:31 EDT [facility] BLOOD BANK Blood VENOUS BLOOD / Unknown 03/21/2024 13:00 EDT 03/21/2024 21:51 EDT Consuelo Guerrero DO BLOOD BANK TESTS Performing Organization Address [facility] Co de Phone Number [facility] BLOOD BANK [address] [place] [id number] * HAPTOGLOBIN (03/21/2024 13:00 EDT) Haptoglobin 183 32 - 197 mg/dL 03/22/2024 10:25 EDT [facility] Blood VENOUS BLOOD / Unknown 03/21/2024 13:00 EDT 03/21/2024 21:50 EDT Provider Outr Resulting Lab CHEMISTRY & BLOOD GAS ORDERABLES Performing Organization Address [facility]/ZIP Co de Phone Number [facility] [address] [place], [place] [address] * SURGICAL PATHOLOGY (03/21/2024 11:35 EDT) Note to Patient The following pathology results have been interpreted by your pathologist and may be available to you before your health provider has had the opportunity to review them. Please allow time for your provider to receive these results and explore management options, if applicable. 03/24/2024 10:36 EDT [facility] Final Diagnosis A. [...] - Deeper sections x3 examined. 03/24/2024 10:36 [facility] Attestation There was significant resident/fellow involvement in the diagnostic evaluation of this case. By the signature below, the attending physician certifies that they have personally conducted a gross and/or microscopic examination of the described specimens and rendered or confirmed the above diagnosis. 03/24/2024 10:36 [facility] at 1036 Clinical History Anemia, hiatal hernia, 38 cm aguayo diverticulosis 03/24/2024 10:36 [facility] Gross Description A. Received in [...] Luis Torres 03/22/2024 9:36 03/24/2024 10:36 EDT [facility] Resident/Estuardo w: Luis Felipe Bragg DO 03/24/2024 10:36 EDT [facility] Performing Lab [facility] 10:36 EDT [facility] Scanned Images 03/24/2024 10:36 EDT [facility] Tissue POLYP OF [...] 8:19 EDT Consuelo Guerrero DO PATHOLOGY ORDERABLES [facility] [address] [place] [address] from Last 3 Months Care Teams Show Host/Hostess Relationship Specialty Start Date End Date Ashley Chavez ARNP [address] [place] [address] PCP - General 07/11/10
--- OUTSIDE RECORDS SUMMARY | 2024-04-20 14:21 | XMS_ITS | Encounter Summary ---
Author Organization Formerly [facility] [place] [address] Care Team Providers Care Deck Engine Operator Name Role Phone Magdalena Acosta MD Primary Care Provider [phone] Reason for Visit * Reason Comments Coronary Artery Disease Hypertension Aortic Stenosis Encounter Details Date Type Department Care Team (Latest Contact Info) Description 07/20/2023 4:40 PM EST TH Visit (TeleHealth) Cardiology at [address] [address] Jay Maza PA [facility] [place] [address] HFrEF (heart failure with reduced ejection fraction); [...] Maza PA - 07/20/2023 4:40 PM EST [facility] [...] lieu of an in person office visit. Cured Meat Packing Supervisor: Antelmo Sharma MD ([facility] Cards) Maria Luz Mejia MD ([facility] / [facility] cards) Problem [...] notable for coronary artery protection given low nbiwo-zt-uktqlzaq distance. There was no obstruction post Valve deployment, but the stent could not be removed safely, so it was deployed. 4.0 mm x 30mm in left main. She was loaded on brilinta aka ticagrelor. Immediately post valve deployment, chest compressions to circulate central epinephrine which was administered given her hypotension, low LVEF, and low cardiac reserve. Next, the patient was transferred to [facility] for pressor and inotropic support. Pressors weaned overnight. Cardiac indices by thermodilution remained greater than 3 with continued Milrinone 0.125 mcg/kg/min. EKG the next day with NSR with stable NC/QRS intervals. Hemoglobin 7.8 today from 8.5, likely [...] arms and wrists. Successful right transfemoral TAVR Xwzxx-sw-Pugzo with a 23 mm Lai 3 THV. [...] leads Confirmed by MD Harshil, Haris Bell ([id number]) on 05/10/2023 8:11:46 AM Cardiac Cath 11/09/2022 [...] in chart review and direct patient contact. [id number] 0-5min [id number] 6-10min 1815CIX4 11-15min 6662ZGY3 16-20min x [id number] 21-30min [id number] 31-40min [id number] 40+ min Jay Maza PA-C Interventional Cardiology [facility] Pager [phone] documented in this encounter Plan of Treatment Upcoming Encounters Date Type Department Care Team (Late st Contact Info) Description 05/12/2024 9:00 AM EDT Appointment [place] [address] 05/12/2024 10:00 AM EDT Office Visit [place]ematology [place] [address] Markel Borjas MD [facility] [address] HEMATOLOGY [place] [address] 03/01/2025 4:15 PM EDT Office Visit Dermatology at [place] [address] [place] [address] Marek Bonilla MD [address] [place] [address] documented as of this encounter Visit Diagnoses Diagnosis HFrEF (heart failure with reduced ejection fraction) Hypertension, unspecified type Aortic valve stenosis, etiology of cardiac valve disease unspecified documented in this encounter Care Teams Deck Engine Operator Relationship Specialty Start Date End Date Magdalena Acosta MD [address] [place] [address] PCP - General Family Medicine 02/05/23 documented as of this encounter
--- OUTSIDE RECORDS SUMMARY | 2024-04-20 14:21 | XMS_ITS | Encounter Summary ---
Author Organization [facility] Address [address] [place] [address] Care Team Providers Care Financial Reporting Director Name Role Phone Unavailable Primary Care Provider Unavailabl e Encounter Details Date Type Department Care Team (Late st Contact Info) Description 04/20/2005 Results Only [facility] - Maple conversion [address] [place] [address] Ziggy Valiente MD [address] [place] [id number] Social History Tobacco Use Types Packs/Day Years [...] ? 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 Accession #: ? [id number] ? : ? 1955 (Age: 49) ??F [...] correlation with endoscopic appearance is recommended. (Dr. Chino)/rust Document reviewed and electronically signed by: TYRON [...] is entirely submitted in one cassette. ??(Arabella Santos)/[facility] End of Report PAUL ARELLANO 04/20/2005 04/21/2005 15: 04 EDT Ziggy Valiente MD PATHOLOGY ORDERABLES PAUL ARELLANO [address] [place] [address] documented in this encounter Visit Diagnoses Not on filedocumented in this encounter
--- OUTSIDE RECORDS SUMMARY | 2024-04-20 14:21 | XMS_ITS | Encounter Summary ---
Author Organization [facility] Address [address] [place] [address] Care Team Providers Care Senior Clinical Study Manager Name Role Phone Ashley Chavez Primary Care Provider Encounter Details Date Type Department Care Team (Late st Contact Info) Description 05/12/2022 Lab Requisition [facility] Pathology & Laboratory Medicine - [address] [address] Outr Resulting Lab, Provider Social History Tobacco [...] 14:32 EDT) Hold Hold 05/12/2022 22:46 EDT [facility] Blood VENOUS BLOOD / Unknown 05/12/2022 14:32 EDT 05/12/2022 21:40 EDT Provider Outr Resulting Lab LAB INFO SER VICE AND SUPPORT & PHONE RESULT Performing Organization Address [facility]/ZIP Co de Phone Number [facility] [address] [place] [address] * (ABNORMAL) HOMOCYSTEINE (05/12/2022 14:32 EDT) Homocysteine 14.7(H) 5.0 - 13.9 umol/L 05/13/2022 9:05 EDT [facility] Comment:Results may be false ly elevated if sample is not collected on ice or is not removed from cells within 1 hour of collection. Blood VENOUS BLOOD / Unknown 05/12/2022 14:32 EDT 05/12/2022 21:40 EDT Narrative [facility] - 05/13/2022 9:05 [...] GAS ORDERABLES Performing Organization Address [facility] Co de Phone Number [facility] [address] [place] [address] * HAPTOGLOBIN (05/12/2022 14:32 EDT) Pathologist [facility] Haptoglobin 138 32 - 197 mg/dL 05/13/2022 9:55 EDT [facility] Blood VENOUS BLOOD / Unknown 05/12/2022 14:32 EDT 05/12/2022 21:36 EDT Provider Outr Resulting Lab CHEMISTRY & BLOOD GAS ORDERABLES Performing Organization Address [facility] Co de Phone Number [facility] [address] [place] [address] * (ABNORMAL) ANTI NUCLEAR AB (FRANCISCO), IFA (05/12/2022 14:32 EDT) FRANCISCO Interpretation Positive(A) Negative 05/13/2022 14:44 EDT [facility] Comment: Result [...] Pattern 1 1:5120 Speckled 05/13/2022 14:44 EDT [facility] Blood VENOUS BLOOD / Unknown 05/12/2022 14:32 EDT 05/12/2022 21:36 EDT Narrative [facility] - 05/13/2022 14:44 EDT Results were obtained with the INOVA NOVA Lite HEp-2 FRANCISCO Kit by indirect immunofluorescence. Provider Outr Resulting Lab IMMUNOLOGY A ND SEROLOGY ORDERABLES [facility] [address] [place] [address] documented in this encounter Visit Diagnoses Not on filedocumented in this encounter Care Teams Senior Clinical Study Manager Relationship Specialty Start Date End Date Ashley Chavez ARNP [address] [place] [address] PCP - General 07/11/10 documented as of this encounter
--- OUTSIDE RECORDS SUMMARY | 2024-04-20 14:21 | XMS_ITS | Encounter Summary ---
Author Organization [place] [address] Care Team Providers Care Inlayer Silver Name Role Phone Magdalena Acosta MD Primary Care Provider [phone] Encounter Details Date Type Department Care Team (Late st Contact Info) Description 07/08/2023 10:15 AM EST Office Visit Cardiology at [address] [phone] Severe aortic stenosis Social History Tobacco Use [...] AM EDT Appointment Hematology [place] [address] 05/12/2024 10:00 AM EDT Office Visit Hematology [place] [address] [facility] [facility] [address] [place] [address] 03/01/2025 4:15 PM EDT Office Visit Dermatology at [place] [address] [place] [address] Marek Bonilla MD [address] [place] [address] documented as of this encounter Procedures Procedure [...] (Bezet) 449 ms MUSE SYSTEM Calculated P [place] 66 degrees MUSE SYSTEM Calculated R [place] 60 degrees MUSE SYSTEM Calculated T [place] 53 degrees MUSE SYSTEM INTERPRETATION Normal sinus rhythm Minimal voltage criteria for LVH, may be normal variant ( Sokolow-Orozco ) ST & T wave abnormality, consider lateral ischemia ??vs. repolarization abnormality from LVH Abnormal ECG When compared with ECG of 13-MAY-2023 09:22, Premature ventricular complexes are no longer Present Minimal criteria for Septal infarct are no longer Present Confirmed by Maxx Best ([id number]) on 07/09/2023 10:07:22 AM MUSE SYSTEM 07/08/2023 10:2 7 AM EST 07/09/2023 10:07 AM EST Brody Dale Eusebio OSBONR ECG ORDERABLES Draft SYSTEM documented in this encounter Visit Diagnoses Diagnosis Severe aortic stenosis Aortic valve disorders documented in this encounter Care Teams Inlayer Silver Relationship Specialty Start Date End Date Magdalena Acosta MD [address] [place] [address] PCP - General Family Medicine 02/05/23 documented as of this encounter
--- OUTSIDE RECORDS SUMMARY | 2024-04-20 14:21 | XMS_ITS | Encounter Summary ---
Author Organization [facility] Address [facility] [place] [address] Care Team Providers Care Studio Potter Name Role Phone Magdalena Acosta MD Primary Care Provider [phone] Encounter Details Date Type Department Care Team (Late st Contact Info) Description 07/29/2023 11:00 AM EST Office [place] [address] Magdalena Peralta MD [facility] [place] [address] Mixed connective tissue disease Social History Tobacco [...] 1:5120 speckled; VIC negative; Myositis panel with TELEGRAPH REPEATER TECHNICIAN ab 149.1 (positive); Anti U1RNP IgG [...] Viramontes. Magdalena Peralta MD Rheumatology Fellow Pager: [phone] * Kia Viramontes DO - 07/29/2023 11:00 AM EST ATTENDING ADDENDUM The patient's history was reviewed, and I interviewed and examined the patient with Dr. Peralta I agree with her summary, findings, and plan. documented in this encounter Plan of Treatment Upcoming Encounters Date Type Department Care Team (Late st Contact Info) Description 05/12/2024 9:00 AM EDT Appointment Hematology [place] [address] 05/12/2024 10:00 AM EDT Office Visit Hematology [place] [address] Markel Borjas MD [facility] [address] [place] [address] 03/01/2025 4:15 PM EDT Office Visit Dermatology at [place] [address] [facility] [place] [address] Marek Bonilla MD [address], [place] [address] documented as of this encounter Results * [...] PFT FEV1/FVC Pre-BD Z-Score 0 COMPAS PFT FOB49-22 Actual Pre-BD 2.41 % COMPAS PFT WLW88-46 Predicted 1.8 % COMPAS PFT BCQ46-23 Pre-BD % of Predicted 134 % COMPAS PFT DMJ87-68 Pre-BD Z-Score 0.81 COMPAS PFT DLCO Hb [...] tissue documented in this encounter Care Teams Studio Potter Relationship Specialty Start Date End Date Magdalena Acosta MD [address] [place] [address] PCP - General Family Medicine 02/05/23 documented as of this encounter
--- OUTSIDE RECORDS SUMMARY | 2024-04-20 14:21 | XMS_ITS | Encounter Summary ---
[place] [address] Care Team Providers Care Freight Car Loader Name Role Phone Magdalena Acosta MD Primary Care Provider [phone] Encounter Details Date Type Department Care Team (Latest Contact Info) Description 10/05/2023 10:52 AM EST - 10/05/2023 11:59 PM [facility] Hospital [place] [address] Mixed connective tissue disease Discharge Disposition: Home Social History Tobacco Use Types Packs/Day Years Used Date Smoking Tobacco: Never Smokeless Tobacco: Never Alcohol Use Standard Drinks/Week Comments No 0 (1 standard drink = 0.6 oz pur e alcohol) none [facility] Inpatient Questions Answer Date Recorded Does Anyone [...] AM EDT Appointment [place] [address] 05/12/2024 10:00 AM EDT Office Visit [place] [address] Markel Borjsa MD [facility] [address] HEMATOLOGY [place] [address] 03/01/2025 4:15 PM EDT Office Visit Dermatology at [place] [address] [place] [address] Marek Bonilla MD [address] [place] [address] documented as of this encounter Procedures Procedure [...] PFT FEV1/FVC Pre-BD Z-Score 0 COMPAS PFT XZP99-69 Actual Pre-BD 2.41 % COMPAS PFT HKT67-90 Predicted 1.8 % COMPAS PFT KEK49-06 Pre-BD % of Predicted 134 % COMPAS PFT HMM51-10 Pre-BD Z-Score 0.81 COMPAS PFT DLCO Hb [...] tissue documented in this encounter Care Teams Freight Car Loader Relationship Specialty Start Date End Date Magdalena Acosta MD [address] [place] [address] PCP - General Family Medicine 02/05/23 documented as of this encounter
--- OUTSIDE RECORDS SUMMARY | 2024-04-20 14:21 | XMS_ITS | Encounter Summary ---
Author Organization [facility] Address [address] [place] [address] Care Team Providers Care Calibration Engineer Name Role Phone Scott Ashley WILLIAM Primary Care Provider [phone] Encounter Details Date Type Department Care Team (Late st Contact Info) Description 11/10/2013 Results Only [facility] [phone] Jeni Laird, BOX OFFICE CLERK [address] [place], [place] [phone] Social History Tobacco Use Types Packs/Day Years [...] ? 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 Accession #: ? [id number] : ? 1955 (Age: 58) ??F ?Collect Date: ? 11/10/2013 Location: ? [facility] ? Receive Date: ? 11/14/2013 Provider: ?JENI LAIRD BOX OFFICE CLERK Copy to: ? Specimen/Source: ?Pap Test, Endocervix, [...] Report PAUL ARELLANO 11/10/2013 11/14/2013 Jeni Laird BOX OFFICE CLERK PATHOLOGY ORDERAB LES Performing Organization Address City/State/[facility] Co de Phone Number PAUL ARELLANO [address] [place] [address] documented in this encounter Visit Diagnoses Not on filedocumented in this encounter Care Teams Calibration Engineer Relationship Specialty Start Date End Date Ashley Chavez ARNP [address] [place] [address] PCP - General 07/11/10 documented as of this encounter
--- OUTSIDE RECORDS SUMMARY | 2024-04-20 14:21 | XMS_ITS | Encounter Summary ---
[place] [address] Care Team Providers Care Disability Rater Name Role Phone Magdalena Acosta MD Primary Care Provider [phone] Encounter Details Date Type Department Care Team (Latest Contact Info) Description 07/08/2023 12:35 PM EST Laboratory Appointment Lab [address] [place] [address] S/P TAVR (transcatheter aortic valve replacement); Severe aortic stenosis Social History Tobacco Use Types Packs/Day Years Used Date Smoking Tobacco: Never Smokeless Tobacco: Never Alcohol Use Standard Drinks/Week Comments No 0 (1 standard drink = 0.6 oz pur e alcohol) none [facility] Inpatient Questions Answer Date Recorded [...] AM EDT Appointment H[place]ology [place] [address] 05/12/2024 10:00 AM EDT Office Visit [place] [address] Markel Borjas MD [facility] [address] [place] [address] 03/01/2025 4:15 PM EDT Office Visit Dermatology at [place] [address] [place] [address] Marek Bonilla MD [address], [place] [address] documented as of this encounter Procedures Procedure [...] 11:56 AM EST) Neutrophil % 73.2 % [facility] Neutrophil Absolute 3.40 1.70 - 6.10 x10(3)/mc L [facility] Lymph % 16.1 % [facility] Lymphocytes Abs 0.8(L) 0.9 - 3.2 x10(3)/mc L [facility] Monocyte % 9.7 % [facility] Monocyte Abs 0.4 0.3 - 0.9 x10(3)/mc L [facility] Eos % 0.4 % [facility] Eosinophils Abs 0.0 0.0 - 0.4 x10(3)/mc L [facility] Basophil % 0.4 % [facility] Baso Absolute 0.0 0.0 - 0.1 x10(3)/ L [facility] Immature Gran % 0.20 % [facility] Comment: Immature granulocytes(IG's)percentage and absolute count will include metamyelocytes, myelocytes, and promyelocytes. Blood smears from CBCs yielding IG's will be scanned manually for concordance. If this scan disagrees with the automated IG or if promyelocytes are noted, a manual differential will be performed. Immature Gran Absolute 0.01 0.00 - 0.04 x10(3)/ L [facility] Blood 07/08/2023 11:5 6 AM EST 07/08/2023 12:02 PM EST Narrative Resulting Agency Comment Spec In Lab Minh TOBAR HEMATOLOGY ORDERABLE S [facility] [place] [address] * (ABNORMAL) Hemogram (07/08/2023 11:56 AM EST) White Blood Cell 4.6 4.0 - 9.5 x10(3)/[facility] LABORAT[facility] Red Blood Cell 3.34(L) 4.00 - 5.21 x10(6)/[facility] Hemoglobin 11.0(L) 11.7 - 15.5 g/dL [facility] Hematocrit 33.2(L) 35.7 - 45.8 % [facility] Mean Cell Volume 99.4(H) 82.6 - 94.4 fL [facility] Mean Cell Hemoglobin 32.9(H) 27.1 - 32.0 pg [facility] Mean Cell Hemoglobin Concentration 33.1 31.7 - 35.0 g/dL [facility] Platelet 166 145 - 357 x10(3)/[facility] LABORATORY RDW Standard Deviation 47.1(H) 37.0 - 46.0 fL [facility] RDW coefficient of variation 13.0 11.5 - 14.1 % [facility] Mean Platelet Volume 9.0 7.6 - 12.9 fL [facility] NRBC% auto 0.0 % [facility] IT[facility] NRBC Absolute 0.000 0.000 - 0.000 x10(3)/ L [facility] Blood 07/08/2023 11:5 6 AM EST 07/08/2023 12:02 PM EST Narrative Resulting Agency Comment Spec In Lab Minh TOBAR HEMATOLOGY ORDERABLE S [facility] [place] [address] * (ABNORMAL) Comprehensive metabolic panel (non-fasting) (07/08/2023 11:56 AM EST) Glucose 93 65 - 199 mg/dL [facility] Comment:Diabetes: >=200 mg/d L plus symptoms Blood Urea Nitrogen 19(H) 8 - 18 mg/dL [facility] Creatinine 0.81 0.70 - 1.20 mg/dL [facility] Sodium 142 135 - 145 mmol/L [facility] Potassium 3.8 3.5 - 5.0 mmol/L [facility] Comment: Please note: ??Patients with WBC >100,000 may have falsely elevated Potassium levels. ??For accurate Potassium quantification in these patients send serum separator tube (gold top) for subsequent determinations. ??Contact the Clinical Chemistry Laboratory if there are any questions. Chloride 104 98 - 107 mmol/L [facility] Carbon Dioxide 26 22 - 31 mmol/L [facility] Anion Gap 12 5 - 15 mmol/L [facility] Calcium 10.2 8.5 - 10.5 mg/dL [facility] Protein, Total 7.4 6.1 - 8.0 g/dL [facility] Albumin 4.1 3.2 - 5.2 g/dL [facility] Aspartate Aminotransferase 24 0 - 30 unit/L [facility] Alanine Aminotransferase 12 0 - 30 unit/L [facility] Alkaline Phosphatase 93 35 - 105 unit/L [facility] Bilirubin, Total 0.3 0.2 - 1.3 mg/dL [facility] Est Glomerular Filtration Rate 80 >=60 mL/min/1. 73 m?? [facility] [...] Lab Alirio Esparza MD [place] [address] documented in this encounter Visit Diagnoses Diagnosis S/P TAVR (transcatheter aortic valve replacement) Severe aortic stenosis Aortic valve disorders documented in this encounter Care Teams Disability Rater Relationship Specialty Start Date End Date Magdalena Acosta MD [address] [place] [address] PCP - General Family Medicine 02/05/23 documented as of this encounter
--- OUTSIDE RECORDS SUMMARY | 2024-04-20 14:21 | XMS_ITS | Encounter Summary ---
Author Organization [facility] [place] [address] Care Team Providers Care Cad Cam Programmer Name Role Phone Magdalena Acosta MD Primary Care Provider [phone] Reason for Referral * Diagnostic Test (Routine) - New Request Specialty Diagnoses / Procedures Referred By Contac t Referred To Contact Cardiology Diagnoses S/P TAVR (transcatheter aortic valve replacement) Procedures Echocardiogram Transthoracic Antelmo Sharma MD [facility] [address] [facility] [place] [address] Referral ID Status Reason Start Date Expiration Date Visits Requested Visits Authorized [id number] New Request Specialty Service Requested 12/16/2023 12/15/2024 1 1 Encounter Details Date Type Department Care Team (Late st Contact Info) Description 12/16/2023 Orders Only Cardiology at [address] [address] Antelmo Sharma MD [facility] [place] [address] S/P TAVR (transcatheter aortic valve [...] AM EDT Appointment Hematology [place] [address] 05/12/2024 10:00 AM EDT Office Visit Hematology [place] [address] Markel Borjas MD [facility] [address] [place] [address] 03/01/2025 4:15 PM EDT Office Visit Dermatology at [place] [address] [place] [address] Marek Bonilla MD [address] [place] [address] Scheduled Orders Name Type Priority Associated Diagnoses [...] replacement) documented in this encounter Care Teams Cad Cam Programmer Relationship Specialty Start Date End Date Magdalena Acosta MD [address] [place] [address] PCP - General Family Medicine 02/05/23 documented as of this encounter
--- OUTSIDE RECORDS SUMMARY | 2024-04-20 14:21 | XMS_ITS | Encounter Summary ---
Author Organization [facility] Address [address] [place] [address] Care Team Providers Care Director Immunology Name Role Phone Ashley Cahvez Primary Care Provider [phone] Encounter Details Date Type Department Care Team (Latest Contact Info) Description 05/12/2019 13:18 EDT - 05/12/2019 23:59 EDT Hospital Encounter [address] [address] Unknown, Provider, Discharge Disposition: Home or Self [...] filedocumented in this encounter Care Teams Director Immunology Relationship Specialty Start Date End Date Ashley Chavez ARNP [address] [place] [address] PCP - General 07/11/10 documented as of this encounter
--- OUTSIDE RECORDS SUMMARY | 2024-04-20 14:21 | XMS_ITS | Encounter Summary ---
Author Organization [facility] Address [address] [place] [address] Care Team Providers Care Pulp Beater Name Role Phone Unavailable Primary Care Provider Unavailabl e Encounter Details Date Type Department Care Team (Late st Contact Info) Description 03/24/2007 Results Only [facility] Non-Invasive [facility] - [facility] [address] [place], [place] [address] Ashley Chavez ARNP [address] [place] [address] Social History Tobacco Use Types Packs/Day Years [...] ? 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 Accession #: ? [id number] : ? 1955 (Age: 51) ??F ?Collect Date: ? 03/24/2007 Location: ? [facility] ? Receive Date: ? 03/28/2007 Provider: ?ASHLEY THOMAS Copy to: ? Specimen/Source: ?ThinPrep Pap Test, Endocervix, processed on Nu-B-2B ThinPrep Imaging System, with manual evaluation Last [...] Ashley THOMAS PATHOLOGY ORDERABLES PAUL ARELLANO [address] [place] [address] documented in this encounter Visit Diagnoses Not on filedocumented in this encounter
--- OUTSIDE RECORDS SUMMARY | 2024-04-20 14:21 | XMS_ITS | Encounter Summary ---
[place] [address] Care Team Providers Care Counter Manager Name Role Phone Magdalena Acosta MD Primary Care Provider [phone] Reason for Visit * Reason Comments Annual Exam Encounter Details Date Type Department Care Team (Late st Contact Info) Description 02/22/2024 4:15 PM EDT Office Visit Dermatology at [address] [phone] Marek Bonilla MD [address] [facility] A DERMATOLOGY [place], [place] [address] Seborrheic keratosis; Rosacea; Nevus Social History Tobacco [...] cutaneous and ocular 3. Previously told by real estate asset manager that she had corneal tears from [...] AM EDT Appointment H[place] [address] 05/12/2024 10:00 AM EDT Office Visit [place]emat[place] [address] Markel Borjas MD [facility] DR HEMATOLOGY [place] [address] 03/01/2025 4:15 PM EDT Office Visit Dermatology at [place] [address] [facility] [place] [phone] Marek Bonilla MD [address] [facility] [place] [address] documented as of this encounter Visit Diagnoses Diagnosis Seborrheic keratosis Other seborrheic keratosis Rosacea Nevus Benign neoplasm of skin, site unspecified documented in this encounter Care Teams Counter Manager Relationship Specialty Start Date End Date Magdalena Acosta MD [address] [place] [address] PCP - General Family Medicine 02/05/23 documented as of this encounter
--- OUTSIDE RECORDS SUMMARY | 2024-04-20 14:21 | XMS_ITS | Encounter Summary ---
Author Organization [facility] Address [address] [place] [address] Care Team Providers Care Concrete Pouring Supervisor Name Role Phone Unavailable Primary Care Provider Unavailabl e Encounter Details Date Type Department Care Team (Late st Contact Info) Description 07/08/2010 10:55 EST - 07/08/2010 10:56 EST Hospital Encounter [facility] - Other [address] [place] [address] Ashley Chavez, WILLIAM [address] [place] [address] Discharge Disposition: Home or Self Care Social [...]
--- OUTSIDE RECORDS SUMMARY | 2024-04-20 14:21 | XMS_ITS | Encounter Summary ---
Author Organization [facility] Address [address] [place] [address] Care Team Providers Care Box Toe Stitcher Name Role Phone Ashley Chavez Primary Care Provider [phone] Encounter Details Date Type Department Care Team (Late st Contact Info) Description 10/30/2022 Lab Requisition [facility] Pathology & Laboratory Medicine - [address] [address] Outr Resulting Lab, Provider Social History Tobacco [...] Stranded) <12.3 <30.0 IU/mL 11/03/2022 13:08 EDT [facility] Comment: ? Negative: ??<30.0 IU/mL ? Borderline Positive: ??30.0 - 75.0 IU/mL ? Positive: ??>75.0 IU/mL Results were obtained with the INOVA QUANTA Lite dsDNA SC DOMO assay on the Pensqr DSX. Blood VENOUS BLOOD / Unknown 10/29/2022 14:00 EDT 10/30/2022 19:27 EDT Provider Outr Resulting Lab IMMUNOLOGY A ND SEROLOGY ORDERABLES Performing Organization Address [facility] de Phone Number [facility] [address] [place] [address] * SM (MORENO) ANTIBODY (10/29/2022 14:00 EDT) [facility] SM (Moreno) Antibody 18.5 <20.0 Units 11/03/2022 14:26 EDT [facility] Comment: ? [...] ND SEROLOGY ORDERABLES Performing Organization Address [facility] de Phone Number [facility] [address] [place] [address] documented in this encounter Visit Diagnoses Not on filedocumented in this encounter Care Teams Box Toe Stitcher Relationship Specialty Start Date End Date Ashley Chavez ARNP [address] [place] [address] PCP - General 07/11/10 documented as of this encounter
--- OUTSIDE RECORDS SUMMARY | 2024-04-20 14:21 | XMS_ITS | Encounter Summary ---
Author Organization [facility] Address [address] [place] [address] Care Team Providers Care Windows Security Engineer Name Role Phone Unavailable Primary Care Provider Unavailabl e Encounter Details Date Type Department Care Team (Late st Contact Info) Description 07/08/2010 Results Only [facility] Non-Invasive Cardiology - [facility] [address] [place] [address] Ashley Chavez, WILLIAM [address] [place] [address] Social History Tobacco Use Types Packs/Day Years [...] ? 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 Accession #: ? [id number] ? : ? 1955 (Age: 54) ??F [...] Ashley THOMAS PATHOLOGY ORDERABLES PAUL ARELLANO [address] [place] [address] documented in this encounter Visit Diagnoses Not on filedocumented in this encounter
--- OUTSIDE RECORDS SUMMARY | 2024-04-20 14:21 | XMS_ITS | Encounter Summary ---
Author Organization [facility] [place] [address] Care Team Providers Care Rivet Hole Machine Operator Name Role Phone Magdalena Acosta MD Primary Care Provider [phone] Encounter Details Date Type Department Care Team (Late st Contact Info) Description 12/02/2023 11:15 AM EDT Office [place] [address] Magdalena Peralta MD [facility] [place] [address] Mixed connective tissue disease Social History Tobacco [...] Up Note PCP: Magdalena Acosta MD Purnima Thakcer is a 68 y.o. female who we are seeing for the continuing management of mixed connective tissue disease. Rheum History: - developed Raynaud's phenomenon, diffuse weakness - consistent history of leukopenia and neutropenia on review of labs - Work up initiated by Neurology: FRANCISCO 1:5120 speckled; VIC negative; Myositis panel with CROWN ASSEMBLY MACHINE SET UP MECHANIC ab 149.1 (positive); Anti U1RNP IgG 119; [...] that she sent via [facility] ahead of her visit, which we [...] exposure. She has an appointment with her Golf Course Laborer scheduled in January. (Dr Bonilla in [place]) ROS (positives in bold): Gen: no fevers, [...] but I encouraged her to contact her Golf Course Laborer to see if she could have her [...] Dr. Tanisha Peralta MD Rheumatology Fellow Pager: [phone] * Federico Yee MD - 12/02/2023 11:15 [...] AM EDT Appointment Hematology [place] [address] 05/12/2024 10:00 AM EDT Office Visit Hematology [place] [address] Markel Borjas MD [facility] DR HEMATOLOGY [place] [address] 03/01/2025 4:15 PM EDT Office Visit Dermatology at [address] [phone] Marek Bonilla MD [address] [place] [address], [facility] [place] [address] Scheduled Orders Name Type Priority Associated Diagnoses Orde r Schedule EKG 12 Lead ECG Routine Mixed connective tissue disease Expected: 12/02/2023, Expires: 06/03/2024 documented as of this encounter Visit Diagnoses Diagnosis Mixed connective tissue disease Other specified diffuse disease of connective tissue documented in this encounter Care Teams Rivet Hole Machine Operator Relationship Specialty Start Date End Date Magdalena Acosta MD [address] [place] [address] PCP - General Family Medicine 02/05/23 documented as of this encounter
--- OUTSIDE RECORDS SUMMARY | 2024-04-20 14:21 | XMS_ITS | Encounter Summary ---
Author Organization [facility] Address [address] [place] [address] Care Team Providers Care Reporting Coordinator Name Role Phone Ashley Chavez Primary Care Provider [phone] Encounter Details Date Type Department Care Team (Late st Contact Info) Description 03/22/2024 Lab Requisition [facility] Pathology & Laboratory Medicine - [address] [address] Consuelo Guerrero, DO [address] [place], [place] [address] Diaphragmatic hernia without obstruction or gangrene; Anemia, [...] explore management options, if applicable. 03/24/2024 10:36 [facility] Final Diagnosis A. [...] - Deeper sections x3 examined. 03/24/2024 10:36 [facility] Attestation There was significant resident/fellow involvement in the diagnostic evaluation of this case. By the signature below, the attending physician certifies that they have personally conducted a gross and/or microscopic examination of the described specimens and rendered or confirmed the above diagnosis. 03/24/2024 10:36 [facility] at [address] Clinical History Anemia, hiatal hernia, 38 cm aguayo diverticulosis 03/24/2024 10:36 [facility] Gross Description A. [...] Luis Torres 03/22/2024 9:36 03/24/2024 10:36 EDT [facility] Resident/Estuardo w: Luis Felipe Bragg DO 03/24/2024 10:36 T [facility] Performing Lab [facility] 10:36 T [facility] Scanned Images 03/24/2024 10:36 T [facility] Tissue POLYP OF COLON [...] 8:19 EDT Consuelo Guerrero DO PATHOLOGY ORDERABLES [facility] [address] [place] [address] documented in this encounter Visit Diagnoses Diagnosis Diaphragmatic hernia without obstruction or gangrene Diaphragmatic hernia without mention of obstruction or gangrene Anemia, unspecified documented in this encounter Care Teams Reporting Coordinator Relationship Specialty Start Date End Date Ashley Chavez ARNP [address] [place] [address] PCP - General 07/11/10 documented as of this encounter
--- OUTSIDE RECORDS SUMMARY | 2024-04-20 14:21 | XMS_ITS | Encounter Summary ---
Author Organization [facility] Address [address] [place] [address] Care Team Providers Care Tool Lathe Operator Name Role Phone Ashley Chavez Primary Care Provider [phone] Encounter Details Date Type Department Care Team (Late st Contact Info) Description 01/07/2023 Lab Requisition [facility] Pathology & Laboratory Medicine - [address] [address] Outr Resulting Lab, Provider Social History Tobacco [...] 55.8 - 66.1 % 01/08/2023 11:28 [facility] Albumin g/dL 3.9 3.6 - 5.2 g/dL 01/08/2023 11:28 [facility] Alpha-1 % 5.1(H) 2.9 - 4.9 % 01/08/2023 11:28 [facility] Alpha-1 g/dL 0.40 0.15 - 0.40 g/dL 01/08/2023 11:28 [facility] Alpha-2 % 7.0(L) 7.1 - 11.8 % 01/08/2023 11:28 [facility] Alpha-2 g/dL 0.50 0.50 - 1.00 g/dL 01/08/2023 11:28 [facility] Beta % 12.7 8.4 - 13.1 % 01/08/2023 11:28 [facility] Beta g/dL 0.90 0.60 - 1.20 g/dL 01/08/2023 11:28 [facility] Gamma % 19.0(H) 11.1 - 18.8 % 01/08/2023 11:28 [facility] Gamma g/dL 1.30 0.60 - 1.60 g/dL 01/08/2023 11:28 [facility] SPEP Comment No apparent monoclonal protein seen on serum electrophoresis 01/08/2023 11:28 [facility] Comment:See scanned/suppleme ntary report. Total Protein 6.9 6.3 - 8.2 g/dL 01/08/2023 11:28 [facility] Blood VENOUS BLOOD / Unknown 01/06/2023 14:40 EDT 01/07/2023 17:37 EDT Provider Outr Resulting Lab CHEMISTRY & BLOOD GAS ORDERABLES Performing Organization Address City/State/[facility] Co de Phone Number [facility] [address] [place] [address] * PROTEIN, TOTAL (01/06/2023 14:40 EDT) Blood VENOUS BLOOD / Unknown 01/06/2023 14:40 EDT 01/07/2023 17:37 EDT Provider Outr Resulting Lab CHEMISTRY & BLOOD GAS ORDERABLES Performing Organization Address [facility] Co de Phone Number [facility] [address] [place] [address] * (ABNORMAL) EXTRACTABLE NUCLEAR ANTIGEN PANEL (01/06/2023 14:40 EDT) SSA Antibody 1.3 <20.0 Units 01/08/2023 15:42 EDT [facility] Comment: ? Negative: <20.0 Units [...] Antibody 1.5 <20.0 Units 01/08/2023 15:42 EDT [facility] Comment: ? Negative: <20.0 Units [...] Antibody 15.3 <20.0 Units 01/08/2023 15:42 EDT [facility] Comment: ? Negative: <20.0 Units ? Weak Positive: 20.0 - 39.9 Units ? Moderate Positive: 40.0 - 80.0 Units ? Strong Positive: >80.0 Units Results were obtained with the [employer] QUANTA Lite Sm DOMO. ??Sm values obtained with different manufacturers' assay methods may not be used interchangeably. ??The magnitude of the reported IgG levels cannot be correlated to an endpoint titer. FOOTBALL SCOUT Antibody 149.1(H) <20.0 Units 01/08/2023 15:42 EDT [facility] Comment: ? Negative: <20.0 Units ? Weak Positive: 20.0 - 39.9 Units ? Moderate Positive: 40.0 - 80.0 Units ? Strong Positive: >80.0 Units Results were obtained with the [employer] Quanta Lite FOOTBALL SCOUT DOMO. FOOTBALL SCOUT values obtained with different electrician aircraft's assay methods may not be used interchangeaby. ??The magnitude of the reported IgG levels cannot be be correlated to an endpoint titer. A positive result in the Quanta Lite FOOTBALL SCOUT DOMO indicates the presence of antibodies reactive with the FOOTBALL SCOUT/Sm complex but cannot distinguish between anti-Sm and anti-FOOTBALL SCOUT activity. Blood VENOUS BLOOD / Unknown 01/06/2023 14:40 EDT 01/07/2023 17:37 EDT Provider Outr Resulting Lab IMMUNOLOGY A ND SEROLOGY ORDERABLES [facility] [address] [place] [address] * (ABNORMAL) ANTI NUCLEAR AB (FRANCISCO), IFA (01/06/2023 14:40 EDT) FRANCISCO Interpretation Positive(A) Negative 01/08/2023 15:22 EDT [facility] Comment: Result is equal to or greater than 1:5120. For titers greater than or equal to 1:160 (except the centromere, nucleolar, and dense fine speckled patterns) it is recommended that specific, follow-up autoantibody testing (such as for dsDNA and Extractable Nuclear Antigens) be performed on all diffuse and/or speckled patterns. FRANCISCO Titer and Pattern 1 1:5120 Speckled 01/08/2023 15:22 EDT [facility] Blood VENOUS BLOOD / Unknown 01/06/2023 14:40 EDT 01/07/2023 17:37 EDT Narrative [facility] - 01/08/2023 15:22 EDT Results were obtained with the INOVA NOVA Lite HEp-2 FRANCISCO Kit by indirect immunofluorescence. Provider Outr Resulting Lab IMMUNOLOGY A ND SEROLOGY ORDERABLES Performing Organization Address City/State/[facility] Co de Phone Number [facility] [address] [place] [address] documented in this encounter Visit Diagnoses Not on filedocumented in this encounter Care Teams Tool Lathe Operator Relationship Specialty Start Date End Date Ashley Chavez ARNP [address] [place] [address] PCP - General 07/11/10 documented as of this encounter
--- OUTSIDE RECORDS SUMMARY | 2024-04-20 14:21 | XMS_ITS | Encounter Summary ---
Author Organization [facility] [place] [address] Care Team Providers Care Assistant Signal Maintainer Name Role Phone Magdalena Acosta MD Primary Care Provider [phone] Encounter Details Date Type Department Care Team [...] AM EDT Appointment H[place]ology [place] [address] 05/12/2024 10:00 AM EDT Office Visit [place]emat[place] [address] Markel Borjas MD [facility] [address] [place] [address] 03/01/2025 4:15 PM EDT Office Visit Dermatology at [place] [address] [place] [phone] Marek Bonilla MD [address] [place] [address] documented as of this encounter Visit Diagnoses Not on filedocumented in this encounter Care Teams Assistant Signal Maintainer Relationship Specialty Start Date End Date Magdalena Acosta MD [address] [place] [address] PCP - General Family Medicine 02/05/23 documented as of this encounter
--- OUTSIDE RECORDS SUMMARY | 2024-04-20 14:21 | XMS_ITS | Encounter Summary ---
Author Organization [facility] Address [address] [place] [address] Care Team Providers Care Cloth Bleaching Supervisor Name Role Phone Ashley Chavez Primary Care Provider [phone] Encounter Details Date Type Department Care Team (Late st Contact Info) Description 03/21/2024 Lab Requisition [facility] Pathology & Laboratory Medicine - [address] [address] Outr Resulting Lab, Provider Social History Tobacco [...] 32 - 197 mg/dL 03/22/2024 10:25 EDT [facility] Blood VENOUS BLOOD / Unknown 03/21/2024 13:00 EDT 03/21/2024 21:50 EDT Provider Outr Resulting Lab CHEMISTRY & BLOOD GAS ORDERABLES [facility] [address] [place] [address] documented in this encounter Visit Diagnoses Not on filedocumented in this encounter Care Teams Cloth Bleaching Supervisor Relationship Specialty Start Date End Date Ashley Chavez ARNP [address] [place] [address] PCP - General 07/11/10 documented as of this encounter
--- OUTSIDE RECORDS SUMMARY | 2024-04-20 14:21 | XMS_ITS | Encounter Summary ---
Author Organization [facility] Address [address] [place] [address] Care Team Providers Care Oracle Fusion Middleware Developer Name Role Phone Unavailable Primary Care Provider Unavailabl e Encounter Details Date Type Department Care Team (Late st Contact Info) Description 03/24/2007 11:06 EDT - 03/24/2007 11:59 EDT Hospital Encounter [facility] - Other [address] [place] [address] Ashley Chavez ARNP [address] [place] [address] Discharge Disposition: Home or Self Care Social [...]
--- OUTSIDE RECORDS SUMMARY | 2024-04-20 14:21 | XMS_ITS | Encounter Summary ---
Author Organization [facility] [place] [address] Care Team Providers Care Bi Consultant Name Role Phone Magdalena Acosta MD Primary Care Provider [phone] Encounter Details Date Type Department Care Team [...] AM EDT Appointment H[place]ology [place] [address] 05/12/2024 10:00 AM EDT Office Visit [place] [address] Markel Borjas MD [facility] [address] [place] [address] 03/01/2025 4:15 PM EDT Office Visit Dermatology at [place] [address] [place] [phone] Marek Bonilla MD [address] [place] [address] documented as of this encounter Visit Diagnoses Not on filedocumented in this encounter Care Teams Bi Consultant Relationship Specialty Start Date End Date Magdalena Acosta MD [address] [place] [address] PCP - General Family Medicine 02/05/23 documented as of this encounter
--- OUTSIDE RECORDS SUMMARY | 2024-04-20 14:21 | XMS_ITS | Encounter Summary ---
Author Organization [facility] Address [address] [place] [address] Care Team Providers Care Security Support Analyst Name Role Phone Ashley Chavez Primary Care Provider [phone] Encounter Details Date Type Department Care Team (Late st Contact Info) Description 04/29/2022 Lab Requisition [facility] Pathology & Laboratory Medicine - [address] [address] Outr Resulting Lab, Provider Social History Tobacco [...] Antibody 1.6 <20.0 Units 04/30/2022 12:23 EDT [facility], [...] ND SEROLOGY ORDERABLES Performing Organization Address [facility] de Phone Number [facility] [address] [place] [address] * SSA ANTIBODIES BY DOMO (04/29/2022 7:51 EDT) SSA Antibody 1.5 <20.0 Units 04/30/2022 12:22 EDT [facility], [...] Organization Address [facility] de Phone Number [facility] [address] [place] [address] documented in this encounter Visit Diagnoses Not on filedocumented in this encounter Care Teams Security Support Analyst Relationship Specialty Start Date End Date Ashley Chavez ARNP [address] [place] [address] PCP - General 07/11/10 documented as of this encounter
--- OUTSIDE RECORDS SUMMARY | 2024-04-20 14:21 | XMS_ITS | Encounter Summary ---
Author Organization [facility] [place] [address] Care Team Providers Care Warehouse Incentive Selector Name Role Phone Magdalena Acosta MD Primary Care Provider [phone] Encounter Details Date Type Department Care Team [...] AM EDT Appointment Hematology [place] [address] 05/12/2024 10:00 AM EDT Office Visit Hematology [place] [address] Markel Borjas MD [facility] [address] HEMATOLOGY [place] [address] 03/01/2025 4:15 PM EDT Office Visit Dermatology at [place] [address] [place] [phone] Marek Bonilla MD [address] [place] [address] documented as of this encounter Visit Diagnoses Not on filedocumented in this encounter Care Teams Warehouse Incentive Selector Relationship Specialty Start Date End Date Magdalena Acosta MD [address] [place] [address] PCP - General Family Medicine 02/05/23 documented as of this encounter
--- OUTSIDE RECORDS SUMMARY | 2024-04-20 14:21 | XMS_ITS | Encounter Summary ---
Author Organization Formerly [place] [address] Care Team Providers Care Car Worker Name Role Phone Magdalena Acosta MD Primary Care Provider [phone] Reason for Visit * Reason Comments Aortic Stenosis Coronary Artery Disease Hypertension Encounter Details Date Type Department Care Team (Latest Contact Info) Description 11/16/2023 11:40 AM EDT TH Visit (TeleHealth) Cardiology at [address] [address] aJy Maza PA [facility] [place] [address] Aortic valve stenosis, etiology of cardiac valve disease unspecified; Coronary artery disease, unspecified vessel or lesion type, unspecified whether angina present, unspecified whether ute or transplanted heart Social History Tobacco Use [...] from the original note were not included. [facility] Interventional Cardiology CARDIOLOGY TELE VISIT NOTE 11/16/23 Patient: Purnima Thacker Prior to the initiation of our discussion, the risks and benefits of tele health visits were discussed, and the patient consented verbally to this being a virtual telehealth visit in lieu of an in person office visit. CARDIOLOGISTS: Antelmo Sharma MD ([facility] Cards) Maria Luz Mejia MD ([facility] Cards - [facility]) Problem List: Aortic valve stenosis: prior [...] I35.0 Mild coronary artery disease by [facility] 11/09/2022 I25.10 Heart failure with reduced [...] notable for coronary artery protection given low ufxxa-in-yxjnwyjp distance. There was no obstruction post Valve [...] had a very reassuring recent echo in [facility], in scanned docs. LVEF 55%. Valve [...] leads Confirmed by MD Harshil, Haris Bell ([id number]) on 05/10/2023 8:11:46 AM Cardiac Cath 11/09/2022 [...] in one year. EKATERINA Thompson Time spent: [id number] 0-5min 8318LVU1 6-10min 3387GBU9 11-15min x [id number] 16-20min 0762EKZ0 21-30min 0645YUH5 31-40min 5048DJU4 40+ min Jay Maza PA-C Interventional Cardiology [facility] Pager [phone] documented in this encounter Plan of Treatment Upcoming Encounters Date Type Department Care Team (Late st Contact Info) Description 05/12/2024 9:00 AM EDT Appointment Hematology [place] [address] 05/12/2024 10:00 AM EDT Office Visit Hematology [place] [address] Markel Borjas MD [facility] [address] [place] [address] 03/01/2025 4:15 PM EDT Office Visit Dermatology at [place] [address] [place] [address] Marek Bonilla MD [address] [place] [address] documented as of this encounter Visit Diagnoses Diagnosis Aortic valve stenosis, etiology of cardiac valve disease unspecified Coronary artery disease, unspecified vessel or lesion type, unspecified whether angina present, unspecified whether ute or transplanted heart documented in this encounter Care Teams Car Worker Relationship Specialty Start Date End Date Magdalena Acosta MD [address] [place] [address] PCP - General Family Medicine 02/05/23 documented as of this encounter
--- OUTSIDE RECORDS SUMMARY | 2024-04-20 14:21 | XMS_ITS | Encounter Summary ---
[place] [address] Care Team Providers Care Densitometrist Name Role Phone Magdalena Acosta MD Primary Care Provider [phone] Reason for Referral * Consultation (Routine) - Authorized Specialty Diagnoses / Procedures Referred By Contac t Referred To Contact Hematology and Oncology Diagnoses Anemia, unspecified type Consuelo Guerrero DO [address] [place] [address] [address] [place] [address] [facility] Hem Onc [address] [place] [address] Referral ID Status Reason Start Date Expiration Date Visits Requested Visits Authorized [id number] Authorized Consult, Test & Treat 04/11/2024 04/11/2025 1 1 Encounter Details Date Type Department Care Team (Late st Contact Info) Description 04/11/2024 Transcribe Orders eDH Incoming Referrals [phone] Consuelo Guerrero DO [address] [place] [address] [address] [place] [address] Anemia, unspecified type Social History Tobacco Use Types Packs/Day Years Used Date Smoking Tobacco: Never Smokeless Tobacco: Never Alcohol Use Standard Drinks/Week Comments No 0 (1 standard drink = 0.6 oz pur e alcohol) none [facility] Inpatient Questions Answer Date Recorded Does Anyone [...] Appointment Hematology [place] [address] 05/12/2024 10:00 AM EDT Office Visit Hematology [place] [address] Markel Borjas MD [facility] [address] HEMATOLOGY [place] [address] 03/01/2025 4:15 PM EDT Office Visit Dermatology at [address] [address] Marek Bonilla MD [address] [facility] [place] [address] Scheduled Referrals Name Type Priority Associated Diagnoses Orde r Schedule Referral to Hematology and Oncology Outpatient Referral Routine Anemia, unspecified type Ordered: 04/11/2024 documented as of this encounter Visit Diagnoses Diagnosis Anemia, unspecified type documented in this encounter Care Teams Densitometrist Relationship Specialty Start Date End Date Magdalena Acosta MD [address] [place] [address] PCP - General Family Medicine 02/05/23 documented as of this encounter
--- OUTSIDE RECORDS SUMMARY | 2024-04-20 14:21 | XMS_ITS | Encounter Summary ---
Author Organization [facility] Address [address] [place] [address] Care Team Providers Care Aviation Neuropsychologist Name Role Phone Ashley Chavez Primary Care Provider [phone] Encounter Details Date Type Department Care Team (Late st Contact Info) Description 06/23/2016 Results Only [facility] [phone] Matthew Acevedo, DO [address] [facility] [place] [place] [address] [place] [address] Social History Tobacco Use Types Packs/Day [...] ? 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 Accession #: ? [id number] : ? 1955 (Age: 60) ??F ?Collect [...] ??400 ?? KARYOTYPE: 46,XX[25] End of Report [facility] 06/23/2016 06/24/2016 Matthew Acevedo DO PATHOLOGY ORDER JODIE [facility] [address] [place] [address] * FLOW CYTOMETRY (06/23/2016 0:00 EST) Pathology Report: FLOW CYTOMETRY REPORT Reports generated via electronic interface contain original data; however they are lacking the format of the original report. Caution should be taken when reading/interpreting unformatted reports. Name: ? 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 Accession #: ? [id number] : ? 1955 (Age: 60) ??F ?Collect Date: ? 06/23/2016 00:00 Location: ? [facility] ? Receive Date: ? 06/24/2016 08:00 Provider: ?MATTHEW ACEVEDO DO Copy to: ?[facility] MARIO ALBERTO RAMOS MD ? FINAL IMMUNOPHENOTYPIC INTERPRETATION: ? Bone marrow, flow cytometric analysis: -No immunophenotypic evidence of a clonal cell population. ??See comment. ? COMMENT: The results of flow cytometry show no immunophenotypic evidence of involvement by a clonal lymphoproliferative or myeloproliferative disorder. ??Correlation of these findings with morphologic and clinical data is essential. ??Please refer to pathology report number [id number] for morphologic details. ? Document reviewed and [...] the Department of Pathology and Laboratory Medicine, [place], [place] ??It has not been cleared or [...] clinical laboratory testing. End of Report ?? [facility] 06/23/2016 06/24/2016 8:0 0 EST Matthew Acevedo DO PATHOLOGY ORDER JODIE [facility] [address] [place] [address] * BONE MARROW/HEMPATH CONSULT (06/23/2016 0:00 EST) Pathology Report: BONE MARROW REPORT Reports generated via electronic interface contain original data; however they are lacking the format of the original report. Caution should be taken when reading/interpreting unformatted reports. Name: ? 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 Accession #: ? [id number] : ? 1955 (Age: 60) ??F ?Collect Date: ? 06/23/2016 Location: ? [facility] ? Receive Date: ? 06/24/2016 Provider: ? MATTHEW ACEVEDO DO Copy to: ?[facility]NAGER MARIO ALBERTO RAMOS MD ? DIAGNOSIS: [...] #1: Aggregate biopsy length: 8 mm with non destructive testing engineer trabeculae of lamellar bone, cellular bone marrow, [...] SEE ABOVE DISCUSSION Lambda (polyclonal, Dako) ??(B1): Sidell (polyclonal, Dako) ??(B1): Biopsy (decalcified) #2: Aggregate biopsy length: 8 mm with non destructive testing engineer trabeculae of lamellar bone, cellular bone marrow, [...] (M115, Leica) ??(B2): Lambda (polyclonal, Dako) ??(B2): Sidell (polyclonal, Dako) ??(B2): NOTE: ??One or more [...] ? 1% Blasts ?1% Special Studies Cytogenetics ([id number]): Pending. Flow Cytometry ([id number]): No immunophenotypic evidence of a clonal cell population. ? End of Report [facility] 06/23/2016 06/24/2016 Matthew Acevedo DO PATHOLOGY ORDER JODIE [facility] [address] [place] [address] documented in this encounter Visit Diagnoses Not on filedocumented in this encounter Care Teams Aviation Neuropsychologist Relationship Specialty Start Date End Date Ashley Chavez ARNP [address] [place] [address] PCP - General 07/11/10 documented as of this encounter
--- OUTSIDE RECORDS SUMMARY | 2024-04-20 14:21 | XMS_ITS | Encounter Summary ---
Author Organization [facility] Address [address] [place] [address] Care Team Providers Care Industrial Engineering Intern Name Role Phone Unavailable Primary Care Provider Unavailabl e Encounter Details Date Type Department Care Team (Late st Contact Info) Description 06/29/2007 Results Only [facility] [address] [place] [address] Sánchez Acevedo MD [address] [place] [address] Social History Tobacco Use Types Packs/Day Years [...] ? 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 Accession #: ? [id number] ? : ? 1955 (Age: 51) ??F [...] covered by a smooth white serosa. ??Three support representative sections of the gallbladder are submitted in one cassette. ??(Sriram Elias/[facility] End of Report [facility] 06/29/2007 06/29/2007 21: 23 EST Sánchez Acevedo MD PATHOLOGY ORDERABLE [facility] [address] [place] [address] documented in this encounter Visit Diagnoses Not on filedocumented in this encounter
--- OUTSIDE RECORDS SUMMARY | 2024-04-20 14:21 | XMS_ITS | Encounter Summary ---
Author Organization [facility] [place] [address] Care Team Providers Care Scalp Treatment Operator Name Role Phone Magdalena Acosta MD Primary Care Provider [phone] Encounter Details Date Type Department Care Team [...] AM EDT Appointment Hematology [place] [address] 05/12/2024 10:00 AM EDT Office Visit Hematology [place] [address] Markel Borjas MD [facility] [address] [place] [address] 03/01/2025 4:15 PM EDT Office Visit Dermatology at [place] [address] [place] [address] Marek Bonilla MD [address], [place] [address] documented as of this encounter Visit Diagnoses Not on filedocumented in this encounter Care Teams Scalp Treatment Operator Relationship Specialty Start Date End Date Magdalena Acosta MD [address] [place] [address] PCP - General Family Medicine 02/05/23 documented as of this encounter
--- OUTSIDE RECORDS SUMMARY | 2024-04-20 14:21 | XMS_ITS | Encounter Summary ---
Author Organization [facility] Address [address] [place] [address] Care Team Providers Care Field Coordinator Name Role Phone Scott Ashley WILLIAM Primary Care Provider [phone] Encounter Details Date Type Department Care Team (Late st Contact Info) Description 05/12/2019 Results Only [facility] [phone] Nadira Gregorio MD [address] [place] [address] Social History Tobacco Use Types Packs/Day [...] ? 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 Accession #: ? [id number] ? : ? 1955 (Age: 63) ??F ? Collect Date: ? 05/12/2019 ? Location: ? [facility] ? Receive Date: ? 05/12/2019 ? Provider: NADIRA GREGORIO MD Copy to: [facility] ASPARAGUS [facility]CH[facility] ? Final Pathologic Diagnosis: COLON, CECUM, POLYP, [...] (ASCP) 05/12/2019 6:08 PM End of Report [facility] 05/12/2019 16:0 3 EDT 05/12/2019 16:03 EDT Nadira Gregorio MD PATHOLOGY ORDERABLES [facility] [address] [place] [address] documented in this encounter Visit Diagnoses Not on filedocumented in this encounter Care Teams Field Coordinator Relationship Specialty Start Date End Date Ashley Chavez ARNP [address] [place] [address] PCP - General 07/11/10 documented as of this encounter
--- OUTSIDE RECORDS SUMMARY | 2024-04-20 14:21 | XMS_ITS | Encounter Summary ---
Author Organization [facility] Address [address] [place] [address] Care Team Providers Care Director Of Teenage Activities Name Role Phone Ashley Chavez Primary Care Provider [phone] Encounter Details Date Type Department Care Team (Late st Contact Info) Description 12/17/2021 Lab Requisition [facility] Pathology & Laboratory Medicine - [address] [address] Outr Resulting Lab, Provider Social History Tobacco [...] Lyme Ab Negative Negative 12/18/2021 10:37 EDT [facility] Blood VENOUS BLOOD / Unknown 12/17/2021 13:30 EDT 12/17/2021 21:32 EDT Provider Outr Resulting Lab IMMUNOLOGY A ND SEROLOGY ORDERABLES Performing Organization Address [facility] Co de Phone Number [facility] [address] [place] [address] * (ABNORMAL) ANTI NUCLEAR AB (FRANCISCO), IFA (12/17/2021 13:30 EDT) FRANCISCO Interpretation Positive(A) Negative 12/18/2021 16:06 EDT [facility] Comment: For titers [...] Pattern 1 1:1280 Speckled 12/18/2021 16:06 EDT [facility] Blood VENOUS BLOOD / Unknown 12/17/2021 13:30 EDT 12/17/2021 21:32 EDT Narrative [facility] - 12/18/2021 16:06 EDT Results were obtained with the INOVA NOVA Lite HEp-2 FRANCISCO Kit by indirect immunofluorescence. Provider Outr Resulting Lab IMMUNOLOGY A ND SEROLOGY ORDERABLES Performing Organization Address [facility] Co de Phone Number [facility] [address] [place] [address] documented in this encounter Visit Diagnoses Not on filedocumented in this encounter Care Teams Director Of Teenage Activities Relationship Specialty Start Date End Date Ashley Chavez ARNP [address] [place] [address] PCP - General 07/11/10 documented as of this encounter
--- OUTSIDE RECORDS SUMMARY | 2024-04-20 14:21 | XMS_ITS | Clinical Summary ---
Author Organization Formerly [facility] Address [facility] [place] [address] Care Team Providers Care Wood Milling Machine Tender Name Role Phone Magdalena Acosta MD Primary Care Provider [phone] Allergies No known active allergies Medications Medication [...] fraction 05/08/2023 Mild coronary artery disease by [facility] 11/09/2022 Heart failure with reduced e [...] Description 04/11/2024 Transcribe Orders eDH Incoming Referrals [phone] Consuelo Guerrero, DO Anemia, unspecified type 03/01/2024 Telephone Cardiology at [address] [address] Cynthia Monsalve RN Pre Procedure Call (DAPT hold for EGD and colo?) 02/22/2024 4:15 PM EDT Office Visit Dermatology at [address] [place] [address] Marek Bonilla MD Seborrheic keratosis; Rosacea; Nevus [...] AM EDT Appointment Hematology [place] [address] 05/12/2024 10:00 AM EDT Office Visit Hematology [place] [address] Markel Borjas MD [facility] [address] [place] [address] 03/01/2025 4:15 PM EDT Office Visit Dermatology at [place] [address] [place] [address] Marek Bonilla MD [address] [place] [address] Health Maintenance Due Date Last [...] 06/05/2036 06/05/2021 Medical Devices Implanted Type Area Head Of Measurement & Insights Device Identifier Shelf Expiration Date Model / Serial / Lot Valve,Aor,Pericar d,Magna,25mm ([id number]) - [id number] Implanted:Qty: 1 on 09/21/2016 by Alirio Esparza MD at [facility] IMPLANTS N/A: Heart DO NOT USE [id number] - [id number] 06/02/2020 [id number] / / [id number] Cable,Blnt,Ss,38i n ([id number]) - [id number] Implanted:Qty: 4 on 09/21/2016 by Alirio Esparza MD at [facility] IMPLANTS N/A: Chest [employer] - [id number] 04/29/2021 [id number] / / [id number] Patch,Cav,Pericar d,2x5cm ([id number]) (Autoreq) - [id number] Implanted:Qty: 1 on 09/21/2016 by Alirio Esparza MD at [facility] IMPLANTS N/A: Heart DO NOT USE [employer] - [id number] 04/21/2018 [id number] / / [id number] Tavr-05/12/2023 Implanted:Qty: 1 on 05/12/2023 by Antelmo Sharma MD Other Heart [employer] - JAIME LI [id number] / [id number] / Description:JAIME LIFESCIE NCES ABBY 3 ULTRA [...] EST) Glucose 93 65 - 199 mg/dL [facility] Comment:Diabetes: >=200 mg/d L plus symptoms Blood Urea Nitrogen 19(H) 8 - 18 mg/dL [facility] Creatinine 0.81 0.70 - 1.20 mg/dL [facility] Sodium 142 135 - 145 mmol/L [facility] Potassium 3.8 3.5 - 5.0 mmol/L [facility] Comment: Please note: ??Patients with WBC >100,000 may have falsely elevated Potassium levels. ??For accurate Potassium quantification in these patients send serum separator tube (gold top) for subsequent determinations. ??Contact the Clinical Chemistry Laboratory if there are any questions. Chloride 104 98 - 107 mmol/L [facility] Carbon Dioxide 26 22 - 31 mmol/L [facility] Anion Gap 12 5 - 15 mmol/L [facility] Calcium 10.2 8.5 - 10.5 mg/dL [facility] Protein, Total 7.4 6.1 - 8.0 g/dL [facility] Albumin 4.1 3.2 - 5.2 g/dL [facility] Aspartate Aminotransferase 24 0 - 30 unit/L [facility] Alanine Aminotransferase 12 0 - 30 unit/L [facility] Alkaline Phosphatase 93 35 - 105 unit/L [facility] Bilirubin, Total 0.3 0.2 - 1.3 mg/dL [facility] Est Glomerular Filtration Rate 80 >=60 mL/min/1. 73 m?? [facility] Comment: This patient's estimated [...] Lab Alirio Esparza MD CHEMISTRY ORDERABLE S [facility] [place] [address] * DXA Central Spine, Hip, and/or Whole Body (Generic) (06/05/2021 11:58 AM EDT) PT CLASS O RAD ADMITDTTM RAD PT RAD INFO [id number]^E VERETT^DEBORAH ^E RAD EXAM DESC XDXAC^DEXA SCAN [...] have questions please contact the health career developer that requested your imaging first. ? Narrative [...] who have questions please contactthe health career developer that requested your imaging first. Deborah Quiroga DISPENSARY ATTENDANT IMG DEXA ORDERABLES * Mammo Screening Cad Bilateral (06/05/2021 11:42 AM EDT) PT CLASS O RAD ADMITDTTM RAD PT RAD INFO [id number]^EV ERETT^DEBORAH^E RAD EXAM DESC MADDSC^SCREEN MAMMO BL [...] have questions please contact the health career developer that requested your imaging first. ? Narrative [...] who have questions please contactthe health career developer that requested your imaging first. Deborah Quiroga [...] capacity to make decision: Yes Care Teams Wood Milling Machine Tender Relationship Specialty Start Date End Date Magdalena Acosta MD [address] [place] [address] PCP - General Family Medicine 02/05/23
--- OUTSIDE RECORDS SUMMARY | 2024-04-20 14:21 | XMS_ITS | Referral Summary ---
Author Organization [facility] Address [address] [place] [address] Care Team Providers Care Professor Of Social Work Name Role Phone Ashley Chavez Primary Care Provider [phone] Encounters Date Type Department Care Team Description 03/22/2024 Lab Requisition [facility] Pathology & Laboratory [address] [address] Consuelo Guerrero, DO Diaphragmatic hernia without obstruction or gangrene; Anemia, unspecified 03/21/2024 Lab Requisition [facility] Pathology & Laboratory [address] [address] Consuelo Guerrero DO Encounter for other general examination 03/21/2024 Lab Requisition [facility] Pathology & Laboratory [address] [address] Outr Resulting Lab, Provider from Last 3 [...] 13:00 EDT) LORY Negative 03/21/2024 22:31 EDT [facility] Blood VENOUS BLOOD / Unknown 03/21/2024 13:00 EDT 03/21/2024 21:51 EDT Consuelo Guerrero DO BLOOD BANK TESTS Performing Organization Address [facility] Co de Phone Number [facility] [address] [place] [address] * HAPTOGLOBIN (03/21/2024 13:00 EDT) Haptoglobin 183 32 - 197 mg/dL 03/22/2024 10:25 EDT [facility] Blood VENOUS BLOOD / Unknown 03/21/2024 13:00 EDT 03/21/2024 21:50 EDT Provider Outr Resulting Lab CHEMISTRY & BLOOD GAS ORDERABLES Performing Organization Address [facility] Co de Phone Number [facility] [address] [place] [address] * SURGICAL PATHOLOGY (03/21/2024 11:35 EDT) Note to Patient The following pathology results have been interpreted by your pathologist and may be available to you before your health provider has had the opportunity to review them. Please allow time for your provider to receive these results and explore management options, if applicable. 03/24/2024 10:36 EDT [facility] Final Diagnosis A. JEJUNUM, [...] - Deeper sections x3 examined. 03/24/2024 10:36 [facility] Attestation There was significant resident/fellow involvement in the diagnostic evaluation of this case. By the signature below, the attending physician certifies that they have personally conducted a gross and/or microscopic examination of the described specimens and rendered or confirmed the above diagnosis. 03/24/2024 10:36 [facility] at [address] Clinical History Anemia, hiatal hernia, 38 cm aguayo diverticulosis 03/24/2024 10:36 [facility] Gross Description A. Received [...] Luis Torres 03/22/2024 9:36 03/24/2024 10:36 EDT [facility] Resident/Estuardo w: Luis Felipe Bragg DO 03/24/2024 10:36 EDT [facility] Performing Lab [facility] 10:36 EDT [facility] Scanned Images 03/24/2024 10:36 EDT [facility] Tissue POLYP OF COLON [...] 8:19 EDT Consuelo Guerrero DO PATHOLOGY ORDERABLES [facility] [address] [place] [address] from Last 3 Months Care Teams Professor Of Social Work Relationship Specialty Start Date End Date Ashley Chavez ARNP [address] [place] [address] PCP - General 07/11/10
--- OUTSIDE RECORDS SUMMARY | 2024-04-20 14:21 | XMS_ITS | Encounter Summary ---
[place] [address] Care Team Providers Care Radar Technician Name Role Phone Magdalena Acosta MD Primary Care Provider [phone] Reason for Visit * Reason Onset Date Comments Pre Procedure Call 03/01/2024 DAPT hold for EGD and colo? Encounter Details Date Type Department Care Team (Late st Contact Info) Description 03/01/2024 Telephone Cardiology at [address] [phone] Cynthia Monsalve RN Pre Procedure Call (DAPT [...] safe. Jay Message above left with Yenifer (truck dock material mover), who would be leaving this note in patient's chart for providers to schedule patient. No further questions or needs at this time. This nurse stated, note will be placed regarding this call in our chart for patient. Kezia Whitney RN, BSN Ambulatory Cardiology [facility], [facility] [place] [phone] * Telephone Encounter - Cynthia Monsalve RN - 03/01/2024 2:09 PM EDT Nurse Veronica from [facility] called, requesting a hold on ASA and/or Plavix for the patient's anticipated EGD and colonoscopy. -Cynthia Monsalve RN documented in this encounter Plan of Treatment Upcoming Encounters Date Type Department Care Team (Late st Contact Info) Description 05/12/2024 9:00 AM EDT Appointment Hematology [place] [address] 05/12/2024 10:00 AM EDT Office Visit Hematology [place] [address] Markel Borjas MD [facility] [address] [place] [address] 03/01/2025 4:15 PM EDT Office Visit Dermatology at [place] [address] [place] [address] Marek Bonilla MD [address] [place] [address] documented as of this encounter Visit Diagnoses Not on filedocumented in this encounter Care Teams Radar Technician Relationship Specialty Start Date End Date Magdalena Acosta MD [address] [place] [address] PCP - General Family Medicine 02/05/23 documented as of this encounter
--- OUTSIDE RECORDS SUMMARY | 2024-04-20 14:21 | XMS_ITS | Encounter Summary ---
Author Organization [facility] Address [address] [place] [address] Care Team Providers Care Driver'S Education Instructor Name Role Phone Sctot, Ashley WILLIAM Primary Care Provider [phone] Encounter Details Date Type Department Care Team (Late st Contact Info) Description 12/23/2016 Results Only [facility] [phone] Deborah Quiroga, COO [address] [place] [phone] Social History Tobacco Use Types Packs/Day Years [...] when reading/interpreti ng unformatted reports. Name: ? PUNRIMA THACKER ? Accession #: ? [id number] ? : ? 1955 (Age: 61) ??F ?Collect Date: ? 12/23/2016 ? Location: ? [facility] ? Receive Date: ? 12/25/2016 ? Provider: DEBORAH QUIROGA SAW SHARPENER Copy to: ? Final Report SPECIMEN ADEQUACY ? Satisfactory for Evaluation - transformation zone component present GENERAL CATEGORIZATION ? Negative for Intraepithelial Lesion or Malignancy ?? Last Menstrual Period: years Specimen/Source: ??Pap Test, Cervix, ThinPrep Imaging System with manual evaluation Document reviewed and electronically signed by: ? Monica Cason [facility](AS[facility]) ? Report ??Date: 01/06/2017 09:11 HPV with Pap Test ? Date Ordered: ? 01/06/2017 ? Status: ?? Signed Out ?Date Complete: ? 01/07/2017 ? By: ??System Interface ? Date Reported: ? 01/07/2017 ? Interpretation RESULT: Negative for HPV. No E6 or E7 mRNA is detected from HPV types 16,18,31,33,35, 39,45,51,52,56,58, 59,66, and 68 by stave and bolt equalizer mediated amplification. Comments Document reviewed and electronically signed by: ? System Interface ? Report date: 01/07/2017 By the signature above, the attending physician certifies that he/she has personally conducted a gross and/or microscopic examination of the described specimens and rendered or confirmed the above diagnosis. End of Report [facility] 12/23/2016 12/25/2016 Deborah Quiroga COO PATHOLOGY ORDERABLES [facility] [address] [place] [address] documented in this encounter Visit Diagnoses Not on filedocumented in this encounter Care Teams Driver'S Education Instructor Relationship Specialty Start Date End Date Ashley Chavez ARNP [address] [place] [address] PCP - General 07/11/10 documented as of this encounter
--- OUTSIDE RECORDS SUMMARY | 2024-04-20 14:21 | XMS_ITS | Encounter Summary ---
Author Organization [facility] [place] [address] Care Team Providers Care Slide Forming Machine Operator Name Role Phone Magdalena Acosta MD Primary Care Provider [phone] Encounter Details Date Type Department Care Team [...] AM EDT Appointment Hematology [place] [address] 05/12/2024 10:00 AM EDT Office Visit Hematology [place] [phone] Markel Borjas MD [facility] [facility] [address] [place] [address] 03/01/2025 4:15 PM EDT Office Visit Dermatology at [place] [address] [place] [phone] Marek Bonilla MD [address], [place] [address] documented as of this encounter Visit Diagnoses Not on filedocumented in this encounter Care Teams Slide Forming Machine Operator Relationship Specialty Start Date End Date Magdalena Acosta MD [address] [place] [address] PCP - General Family Medicine 02/05/23 documented as of this encounter
--- OUTSIDE RECORDS SUMMARY | 2024-04-20 14:22 | XMS_ITS | Encounter Summary ---
Author Organization [facility] [place] [address] Care Team Providers Care Cream Cheese Maker Name Role Phone Magdalena Acosta MD Primary Care Provider [phone] Encounter Details Date Type Department Care Team [...] AM EDT Appointment Hematology [place] [address] 05/12/2024 10:00 AM EDT Office Visit Hematology [place] [phone] Markel Borjas MD [facility] [address] HEMATOLOGY [place] [address] 03/01/2025 4:15 PM EDT Office Visit Dermatology at [place] [address] [place] [phone] Marek Bonilla MD [address], [place] [address] documented as of this encounter Visit Diagnoses Not on filedocumented in this encounter Care Teams Cream Cheese Maker Relationship Specialty Start Date End Date Magdalena Acosta MD [address] [place] [address] PCP - General Family Medicine 02/05/23 documented as of this encounter
--- OUTSIDE RECORDS SUMMARY | 2024-04-20 14:22 | XMS_ITS | Encounter Summary ---
Author Organization [facility] [place] [address] Care Team Providers Care Risk Control Consultant Name Role Phone Magdalena Acosta MD Primary Care Provider [phone] Encounter Details Date Type Department Care Team (Late st Contact Info) Description 05/27/2023 Refill Cardiology at [address] [phone] Vero Marrero, RN Social History Tobacco Use Types Packs/Day Years Used Date Smoking Tobacco: Never Smokeless Tobacco: Never Alcohol Use Standard Drinks/Week Comments No 0 (1 standard drink = 0.6 oz pur e alcohol) none [facility] Inpatient Questions Answer Date Recorded [...] PM EDT TC to Nurse Sosa at [facility] to relay response from Jay Maza copied below. Nurse Sosa states they will send a new prescription to patient's preferred pharmacy and call the patient with the medication information. No print prescription sent to update med list. May 27, 2023 Jay Maza PA to Nm 05/27/23 2:44 PM OK to change ticagrelor to Clopidogrel. Now, she should be taking ticagrelor 90mg BID. When she switches, she can take ticagrelor, then the next morning, stop ticagrelor, instead take clopidogrel 300mg once, then after that 75mg once daily. Jay Marrero beer still runner compounder Clinic at [facility] [address] * Telephone Encounter - Vero Marrero RN - 05/27/2023 1:46 PM EDT VM received from triage nurse Sosa at [facility] stating patient [...] possible. Vero Marrero RN Cardiology Clinic at [facility] [address] documented in this encounter Plan of Treatment Upcoming Encounters Date Type Department Care Team (Late st Contact Info) Description 05/12/2024 9:00 AM EDT Appointment Hematology [place] [address] 05/12/2024 10:00 AM EDT Office Visit Hematology [place] [address] Markel Borjas MD [facility] HEMATOLOGY [place] [address] 03/01/2025 4:15 PM EDT Office Visit Dermatology at [address] [address] Marek Bonilla MD [address], [place] [address] documented as of this encounter Visit Diagnoses Diagnosis Aortic valve stenosis, etiology of cardiac valve disease unspecified documented in this encounter Care Teams Risk Control Consultant Relationship Specialty Start Date End Date Magdalena Acosta MD [address] [place] [address] PCP - General Family Medicine 02/05/23 documented as of this encounter
--- OUTSIDE RECORDS SUMMARY | 2024-04-20 14:22 | XMS_ITS | Encounter Summary ---
Author Organization [place] [address] Care Team Providers Care Case Operator Name Role Phone Magdalena Acosta MD Primary Care Provider [phone] Reason for Referral * Diagnostic Test (Routine) - Closed Specialty Diagnoses / Procedures Referred By Contac t Referred To Contact Cardiology Diagnoses S/P TAVR (transcatheter aortic valve replacement) Procedures Echocardiogram Transthoracic Vinod Juárez PA [facility] [place] [address] [facility] [place] [address] Referral ID Status Reason Start Date Expiration Date V isits Requested Visits Authorized [id number] Closed Specialty Service Requested 05/22/2023 05/21/2024 1 1 Reason for Visit * Diagnostic Test (Routine) - Closed Specialty Diagnoses / Procedures Referred By Contac t Referred To Contact Cardiology Diagnoses S/P TAVR (transcatheter aortic valve replacement) Procedures Echocardiogram Transthoracic Vinod Juárez PA [facility] [address] [facility] [place] [address] Referral ID Status Reason Start Date Expiration Date V isits Requested Visits Authorized [id number] Closed Specialty Service Requested 05/22/2023 05/21/2024 1 1 Encounter Details Date Type Department Care Team (Latest Contact Info) Description 07/08/2023 10:19 AM EST - 07/08/2023 11:59 PM EST Hospital Encounter Non-[place] [address] Alirio Esparza MD S/P TAVR (transcatheter aortic [...] AM EDT Appointment Hematology [place] [address] 05/12/2024 10:00 AM EDT Office Visit Hematology [place] [address] Markel Borjas MD [facility] [address] [place] [address] 03/01/2025 4:15 PM EDT Office Visit Dermatology at [address] [place] [address] Marek Bonilla MD [address] [facility], [place] [address] documented as of this encounter Procedures Procedure [...] EST Narrative 07/08/2023 12:26 PM EST 1 [place] [address] ? Echocardiogram Report Name: ONESIMO THACKER ?Study Date: 07/08/2023 10:31 AMBP: 118/60 mmHg ? Patient Location: : 1955 ? Height: 155 cm ? Account: [id number] Age: 67 yrs ? Weight: 74 kg [...] no significant change (post-procedure). Procedure Limited - 24535. Doppler - 60644. Color Doppler - 83565. Satisfactory quality. This study is limited because [...] Note Lee Kincaid MD - 07/08/2023 1 [place] [address] Echocardiogram Report Name: ANDREWONESIMO Study Date: 310:31 AMBP: 118/60 mmHg Patient Location: : 1955 Height: 155 cm Account: [id number] Age: 67 yrs Weight: 74 kg Gender: [...] is nosignificant change (post-procedure). Procedure Limited - 37359. Doppler - 78570. Color Doppler - 26115. Satisfactoryquality. This study is limited because of [...] replacement) documented in this encounter Care Teams Case Operator Relationship Specialty Start Date End Date Magdalena Acosta MD [address] [place] [address] PCP - General Family Medicine 02/05/23 documented as of this encounter
--- OUTSIDE RECORDS SUMMARY | 2024-04-20 14:23 | XMS_ITS | Encounter Summary ---
[place] [address] Care Team Providers Care Requirements Engineer Name Role Phone Magdalena Acosta MD Primary Care Provider [phone] Reason for Visit * Auth/Cert (Routine) Specialty Diagnoses / Procedures Referred By Contac t Referred To Contact Diagnoses Symptomatic severe aortic stenosis with low ejection fraction NSTEMI, CHF Haris Chua MD [facility] [place] [address] [facility] Referral ID Status Reason Start Date Expiration Date Visits Re quested Visits Authorized [id number] 1 1 Encounter Details Date Type Department Care Team (Late st Contact Info) Description 05/12/2023 7:35 AM EDT Anesthesia Event [place] [address] Lynda Mcgowan MD [facility] [place] [address] Alie Park MD [facility] [place] [address] Anesthesia Record Procedure Summary Procedure Name Responsible [...] cephalic vein (lateral side of arm), left; [id number] catheter system; Anatomical Landmarks; US Not Used; [...] RN LDA Cath/EP Sheath 05/12/23; 0733; 14 Uruguayan (Fr); Right; Femoral; Arterial 05/12/23 0733 by Guerda Bender, RN 05/12/23 0830 by Guerda Bender RN LDA Cath/EP Sheath 05/12/23; 0734; 6 [place]ruguayan (Fr); Right; Femoral; Venous 05/12/23 0734 by Guerda Bender RN 05/12/23 0817 by Guerda Bender RN LDA Cath/EP Sheath 05/12/23; 0734; 7 [place]ruguayan (Fr); Left; Femoral; Arterial 05/12/23 0734 by Guerda Bender, RN 05/12/23 0837 by Guerda Bender RN LDA Cath/EP Sheath 05/12/23; 0734; 6 [place]ayan (Fr); Left; Femoral; Venous 05/12/23 0734 by [...] Procedure Summary Date: 05/12/23 Room / 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 Mild coronary artery disease by [facility] 11/09/2022 05/08/2023 ??? Heart failure with [...] IMG S&I N/A 11/09/2022 CORONARY ANGIOGRAPHY; W [facility],POSSIBLE PCI (WRVU 5.6) performed by Nitesh Escobedo MD at [facility] CATH [facility] ??? PRO AORTOPLAS FOR SUPRAVALV STEN N/A 09/21/2016 @AORTOPLASTY FOR SUPRAVALVULAR STENOSIS (WRVU 29.33) performed by Alirio Esparza MD at [facility] MAIN OR ??? PRO REPLACEMENT PROSTHETIC AORTIC VALVE OPEN W CARDIOPULMONARY BYPASS HOMOGRF/STENT N/A 09/21/2016 @REPLACE AORTIC VALVE, OPEN, W\CPB, W\PROSTHETIC VALVE (WRVU 41.32) performed by Alirio Esparza MD at [facility] MAIN OR Social History Tobacco Use [...] 3 general, with a(n) intravenous induction Add-on [id number] TAVR. In cardiogenic shock. Has arterial line, [...] AM EDT Appointment Hematology [place] [address] 05/12/2024 10:00 AM EDT Office Visit Hematology [place] [phone] Markel Borjas MD [facility] [address] [place] [address] 03/01/2025 4:15 PM EDT Office Visit Dermatology at [place] [address] [place] [address] Marek Bonilla MD [address], [place] [address] documented as of this encounter Visit Diagnoses [...] mL/hr documented in this encounter Care Teams Requirements Engineer Relationship Specialty Start Date End Date Magdalena Acosta MD [address] [place] [address] PCP - General Family Medicine 02/05/23 documented as of this encounter
--- OUTSIDE RECORDS SUMMARY | 2024-04-20 14:23 | XMS_ITS | Encounter Summary ---
Author Organization [facility] Address [facility] [place] [address] Care Team Providers Care Framing Specialist Name Role Phone Magdalena Acosta MD Primary Care Provider [phone] Reason for Referral * Diagnostic Test (Routine) - Closed Specialty Diagnoses / Procedures Referred By Contac t Referred To Contact Cardiology Diagnoses S/P TAVR (transcatheter aortic valve replacement) Procedures Echocardiogram Transthoracic Vinod Juárez PA [facility] [place] [place] [address] [facility] [place] [address] Referral ID Status Reason Start Date Expiration Date V isits Requested Visits Authorized [id number] Closed Specialty Service Requested 05/22/2023 05/21/2024 1 1 * Home Health Care (Routine) - Closed Specialty Diagnoses / Procedures Referred By Contac t Referred To Contact Diagnoses S/P TAVR (transcatheter aortic valve replacement) Alirio Hudson MD [facility] CARDIOTHORACIC SURGERY [address] [facility] & [address] [place] [address] Referral ID Status Reason Start Date Expiration Date V isits Requested Visits Authorized [id number] Closed Consult, Test & Treat 05/22/2023 11/18/2023 999 999 * Consultation (Routine) - Closed Specialty Diagnoses / Procedures Referred By Crispin maxwell Referred To Contact Cardiology Diagnoses S/P TAVR (transcatheter aortic valve replacement) Alirio Hudson MD [facility] C[place] [address] Cardiac Rehab, [address] [place] [address] Referral ID Status Reason Start Date Expiration Date V isits Requested Visits Authorized [id number] Closed Consult, Test & Treat 05/22/2023 11/18/2023 36 36 * Diagnostic Test (Routine) - Closed Specialty Diagnoses / Procedures Referred By Crispin maxwell Referred To Contact Cardiology Diagnoses Aortic valve stenosis, etiology of cardiac valve disease unspecified Procedures Echocardiogram Transthoracic Transesophageal Echocardiogram (YUSRA) Radha Hollins MD [facility] [place] [address] [facility] [place] [address] Referral ID Status Reason Start Date Expiration Date V isits Requested Visits Authorized [id number] Closed Specialty Service Requested 05/11/2023 05/10/2024 1 1 Reason for Visit * Auth/Cert (Routine) Specialty Diagnoses / Procedures Referred By Crispin maxwell Referred To Contact Diagnoses Symptomatic severe aortic stenosis with low ejection fraction NSTEMI, CHF Enrique Chua MD [facility] [place] [address] [facility] Referral ID Status Reason Start Date Expiration Date Visits Re quested Visits Authorized [id number] 1 1 Encounter Details Date Type Department Care Team (Latest Contact Info) Description 05/08/2023 9:14 AM EDT - 05/22/2023 10:46 AM EDT Hospital Encounter Heart and Vascular Unit Level 4 [place] [address] Enrique Chua MD [facility] [place] [address] Juan Luis Gonzalez MD [facility] [place] [address] Radha Hollins MD [facility] [place] [address] Alirio Hudson MD S/P TAVR (transcatheter aortic valve replacement) (Primary Dx); Aortic valve stenosis, etiology of cardiac valve disease unspecified; Symptomatic severe aortic stenosis with low ejection fraction; Heart failure with reduced ejection fraction due to heart valve disease; Mild coronary artery disease by [facility] 11/09/2022; Mixed connective tissue disease; Neck pain; [...] with PCP, Magdalena Acosta MD, or Primary Crown Blocker, Avis Mejia MD, in ~ 7-10 days. Patient to follow up with Sales Representative Uniforms, Dr. Antelmo Sharma, in 2 weeks with an EKG, Echo, CBC, and CMP. Patient to follow up with Nephrology, their office to arrange. Owcn-Vvuvzn-gb interval: After initial 30 day follow-up appointment , all TAVR patients will follow-up again in one year with an echo. Inpatient Provider Contact Information: 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 Secondary Diagnoses: Active Hospital Problems Diagnosis S/P TAVR (transcatheter aortic valve replacement) Cardiogenic shock Symptomatic severe aortic stenosis with low ejection fraction Mild coronary artery disease by [facility] 11/09/2022 Heart failure with reduced ejection fraction [...] Tube Placement Right 05/18/2023 Laure Ricks PA [facility] INTERVENTIONL RAD PRG CATH PLMT LEFT HEART CATH & ARTS W/INJ & ANGIO IMG S&I N/A 11/09/2022 CORONARY ANGIOGRAPHY; W [facility],POSSIBLE PCI (WRVU 5.6) performed by Mario Alberto Escobedo MD at [facility] CATH LABS PRG COMBINED RIGHT & LEFT HEART CATH W/INJ L VENTRICULOGRAPHY, IMG S&I N/A 05/12/2023 COMBINED RIGHT & LEFT HEART CATH,INC INJ FOR L VENTRICULOGRAPHY (WRVU 5.99) performed by Antelmo Sharma MD at [facility] CATH LABS PRO AORTOPLAS FOR SUPRAVALV STEN N/A 09/21/2016 @AORTOPLASTY FOR SUPRAVALVULAR STENOSIS (WRVU 29.33) performed by Alirio Hudson MD at [facility] MAIN OR PRO REPLACE AORTIC VALVE (TAVR/FEDERICO)PERC FEMORAL ARTERY APPROACH 05/12/2023 @TRANSCATHETER AORTIC VALVE REPLACEMENT (TAVR), PERCUTANEOUS FEMORAL (WRVU 22.47) performed by Alirio Hudson MD at [facility] CATH LABS PRO REPLACEMENT PROSTHETIC AORTIC VALVE OPEN W CARDIOPULMONARY BYPASS HOMOGRF/STENT N/A 09/21/2016 @REPLACE AORTIC VALVE, OPEN, W\CPB, W\PROSTHETIC VALVE (WRVU 41.32) performed by Alirio Hudson MD at [facility] MAIN OR Prior To Admission Medications [...] Major Procedures/Operations: 05/12/23: Successful right transfemoral TAVR Dsaor-zv-Ymdez with a 23 mm Lai 3 THV. Left coronary protection with left main MINNA. Hospital Course: #Severe prosthetic s/p valve in valve TF TAVR #Low coronary heights s/p left main stent for coronary protection #Type 2 NSTEMI, present on arrival, resolved #Acute decompensated HFrEF #Cardiogenic shock #EVANS / Cardiorenal syndrome Purnima Thacker was admitted to [facility] on 05/08/2023 via the Cardiology Service [...] TAVR and she was brought to the track repair laborer the following morning where Drs. Alirio [...] if you have questions. Please call your Sales Representative Uniforms's office if you have any discharge or drainage from your procedural sites. Your Sales Representative Uniforms, Dr. Antelmo Sharma and/or the District Administrator may be reached at . Antibiotic prophylaxis: You will need to take antibiotics prior to many invasive tests and treatments, such as dental cleaning, which should be done every 6 months. Your primary care physician or your dentist can prescribe this medication. Please refer to the card with the [place] [employer] Guidelines for more information. You have been provided with a copy of this card. Please refer to the [place] [employer] Guidelines for more information. [...] resume a low fat, low cholesterol, [place] [employer] Diet Driving: No restrictions. Shower/Bath: You may shower daily. No baths, soaking, or swimming for the first week. Wound care: Wash the sites daily with soap and rinse well, pat dry. Assess for any signs of infection such as increased redness, pain, warmth or drainage. Please call your captain fire prevention bureau's office if you have any discharge or drainage from your procedural sites. If there is a lot of swelling, apply mamta wraps during the day and remove at bedtime. Elevate your legs when you are sitting. Home oxygen therapy: N/A Follow up appointments: Please schedule a follow-up appointment with your PCP, Magdalena Acosta MD, or Primary Crown Blocker in ~ 7-10 days. You have a follow-up appointment with your Sales Representative Uniforms, Dr. Antelmo Sharma, in 2 weeks with an EKG, Echo, and labs prior to your appointment. You will need follow-up with Nephrology, their office will arrange. Tfxs-Rakqcm-ob interval: After initial 30 day follow-up appointment , all TAVR patients will follow-up again in one year with an echo. Cardiac Rehabilitation: Purnima Thacker was seen today regarding participation in the outpatient Phase 2 Cardiac Rehabilitation at [facility]. The patient agrees to a referral to this program. The referral will be sent at discharge and the patient should be contacted by the Program within 1- 2 weeks from discharge. Future Appointments and Orders Future Appointments and Orders Future Appointments Provider Department Dept Phone 07/29/2023 11:00 AM Magdalena Peralta MD Rheumatology at [facility] Arrive at: Educational Consultant Area [facility] [phone] 02/11/2024 2:00 PM Marek Bonilla MD Dermatology at [place] Arrive at: [facility] [address] [phone] Future Orders Complete By Expires Type and Screen Future Surgery, [facility] SAME DAY PROGRAM ONLY) [GVB3415 Custom] 05/11/2023 Process Instructions: This test is intended ONLY for patients with upcoming surgery for testing prior to the day of surgery obtained through the same day program (4V or SDP). For ALL OTHER PATIENTS, order a Type and Screen (JUP005) This order includes the physician order for an ABO Recheck if requested by the Blood Bank. Scheduling Instructions: Comments: Questions: Date of surgery: CBC (with Diff) [HJF552 Custom] 06/05/2023 12/05/2023 Process Instructions: INCLUDES: WBC, RBC, Hgb, Hct, Platelets, RBC Indices and Differential Scheduling Instructions: Comments: Questions: Comprehensive metabolic panel (non-fasting) [LAB17 Custom] 06/05/2023 08/20/2023 Process Instructions: INCLUDES: Calcium, T Protein, Albumin, AST, ALT, Alk Phos, T Bili, BUN, Creat, GFR, Glucose, Lytes. Scheduling Instructions: Comments: Questions: Echocardiogram Transthoracic [48041 CPT(R)] 06/05/2023 12/05/2023 Process Instructions: Scheduling Instructions: Questions: Where will study be performed?: [facility] Clinics Does the patient have Congenital Heart Disease?: Does patient require sedation?: GA rationale: EKG 12 Lead [70322 CPT(R)] 06/05/2023 12/05/2023 Process Instructions: Scheduling Instructions: Questions: Which location will this be performed?: [place] Is a rhythm strip needed?: No [facility] Devices [EQ161 Custom] As directed Process Instructions: Scheduling Instructions: Questions: Device Needed: WALKER (E0143) Patient Height (cm): 154.9 cm (5' 0.98) Patient Weight: 75.4 kg (166 lb 3.2 oz) Diagnosis: Unsteady gait when walking Referral to Cardiac Rehab [LVA116 Custom] As directed Process Instructions: If no progress note charted, please enter Clinical details in comments. Scheduling Instructions: Questions: My question or request is: s/p TAVR. Cardiac rehab at [facility]. Referral to Home Health [REF34 Custom] As directed Process Instructions: If no progress note charted, please enter Clinical details in comments. Scheduling Instructions: Comments: DOCUMENTATION FOR VNA SERVICES PATIENT'S LOCATION: Purnima Thacker [address] [place] [phone] (home) Radiology Teacher's Name: Self and brother Raymond In discussion with the attending physician, it is certified that this patient is under his/her careand that MD, or an SCALLOP BINDER, SHOT HOLE DRILLER, or PA who is working directly with him/her, had a kksd-pz-toqo encounter that meets the physician xevh-yp-ttfc encounter requirements with this patient on 05/22/2023. [...] for managing ADLs. HOME HEALTH CARE AGENCY: [facility]. [address] [place] [address] PHONE: [phone] FAX: [phone] Start of care: Ideally 24-48 hours after [...] Magdalena Acosta MD [address] / [facility] [address] All VNA agencies which cover the area of patient's residence have been reviewed, either verbally joao writing, and patient has chosen the home health care agency noted. Questions: Disciplines Requested: Physical Therapy Occupational Therapy Discharge References/Attachments None Arrangements for VNA/home care: As above. (delete if no VNA) Signed: EKATERINA NAVARRETE [facility] Section of Cardiac Surgery Date: 05/22/2023 CC: Magdalena Acosta MD HollandaleMario Alberto MD [address] [place] [address] documented in this encounter Discharge Instructions * Patient Instructions* Vinod Juárez PA - 05/22/2023 9:32 AM EDT TAVR Discharge Instructions: Call your doctor if: You have a fever of greater than 101 degrees, shaking chills, if you develop redness or drainage from your procedure sites, or if you have questions. Please call your Sales Representative Uniforms's office if you have any discharge or drainage from your procedural sites. Your Sales Representative Uniforms, Dr. Antelmo Sharma and/or the District Administrator may be reached at . Antibiotic prophylaxis: You will need to take antibiotics prior to many invasive tests and treatments, such as dental cleaning, which should be done every 6 months. Your primary care physician or your dentist can prescribe this medication. Please refer to the card with the [place] [employer] Guidelines for more information. You have been provided with a copy of this card. Please refer to the [place] [employer] Guidelines for more information. [...] resume a low fat, low cholesterol, [place] [employer] Diet Driving: No restrictions. Shower/Bath: You may shower daily. No baths, soaking, or swimming for the first week. Wound care: Wash the sites daily with soap and rinse well, pat dry. Assess for any signs of infection such as increased redness, pain, warmth or drainage. Please call your captain fire prevention bureau's office if you have any discharge or drainage from your procedural sites. If there is a lot of swelling, apply mamta wraps during the day and remove at bedtime. Elevate your legs when you are sitting. Home oxygen therapy: N/A Follow up appointments: Please schedule a follow-up appointment with your PCP, Magdalena Acosta MD, or Primary Crown Blocker in ~ 7-10 days. You have a follow-up appointment with your Sales Representative Uniforms, Dr. Antelmo Sharma, in 2 weeks with an EKG, Echo, and labs prior to your appointment. You will need follow-up with Nephrology, their office will arrange. Ocbl-Mhydkc-qu interval: After initial 30 day follow-up appointment , all TAVR patients will follow-up again in one year with an echo. Cardiac Rehabilitation: Purnima Thacker was seen today regarding participation in the outpatient Phase 2 Cardiac Rehabilitation at [facility]. The patient agrees to a [...] ins ( tef) Haven Ba, PT Pager: [phone] Physical Therapy Inpatient Rehabilitation Department * Nico [...] 0600 and on the weekends please page [phone]. * Jory Paniagua - 05/20/2023 3:52 PM [...] vomiting Last Bowel Movement: 05/20/23 Jory Paniagua Dentist/Owner * Rashid Tong, OT - 05/20/2023 3:16 [...] Tube Placement Right 05/18/2023 Laure Ricks PA [facility] INTERVENTIONL RAD PRG CATH PLMT LEFT HEART CATH & ARTS W/INJ & ANGIO IMG S&I N/A 11/09/2022 CORONARY ANGIOGRAPHY; W [facility],POSSIBLE PCI (WRVU 5.6) performed by Mario Alberto Escobedo MD at [facility] CATH LABS PRG COMBINED RIGHT & LEFT HEART CATH W/INJ L VENTRICULOGRAPHY, IMG S&I N/A 05/12/2023 COMBINED RIGHT & LEFT HEART CATH,INC INJ FOR L VENTRICULOGRAPHY (WRVU 5.99) performed by Antelmo Sharma MD at [facility] CATH LABS PRO AORTOPLAS FOR SUPRAVALV STEN N/A 09/21/2016 @AORTOPLASTY FOR SUPRAVALVULAR STENOSIS (WRVU 29.33) performed by Alirio Hudson MD at [facility] MAIN OR PRO REPLACE AORTIC VALVE (TAVR/FEDERICO)PERC FEMORAL ARTERY APPROACH 05/12/2023 @TRANSCATHETER AORTIC VALVE REPLACEMENT (TAVR), PERCUTANEOUS FEMORAL (WRVU 22.47) performed by Alirio Hudson MD at [facility] CATH LABS PRO REPLACEMENT PROSTHETIC AORTIC VALVE OPEN W CARDIOPULMONARY BYPASS HOMOGRF/STENT N/A 09/21/2016 @REPLACE AORTIC VALVE, OPEN, W\CPB, W\PROSTHETIC VALVE (WRVU 41.32) performed by Alirio Hudson MD at [facility] MAIN OR Social History: Patient lives alone. Home Setup: Pt lives on one level with tub shower and three steps to enter. DME: none used [employer] Baseline ADL/Mobility: Independent with ADLs and IADLs. 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 Total Minutes, Occupational Therapy: 28 (3696-4320) OT Evaluation Code Rationale: Diagnosis & Pertinent Co-Morbidities affecting Plan of Care: see PMHx Occupational Profile & Client History: Brief Expanded Extensive x Assessment of Occupational Performance: 1-3 performance deficits 3-5 performance deficits x 5 + performance deficits Clinical Decision Making: Low Moderate High x Clinical decision making of moderate complexity using standardized patient assessment instrument and measurable assessment of functional outcome. Pager: [phone] TONG MIKE OT 05/20/2023 Occupational Therapy Rehabilitation [...] 0600 and on the weekends please page [phone]. * Rylie Rodriguez MD - 05/19/2023 3:59 [...] and plan. Cynthia Blackburn MD Nephrology Pager: [phone] * Diana Espino - 05/19/2023 1:49 PM EDT Engine Repairer Production Encounter Note Patient Name: Purnima Thacker : [id number] MR#: [id number] Admit Date: 05/08/2023 9:14 AM Hospital Day [...] as stated. Total Minutes, Physical Therapy: 38 (0253-1367) Henrik Dale CANDY Navarrete Pager: [phone] Physical Therapy Inpatient Rehabilitation Department * Nico [...] 0600 and on the weekends please page [phone]. * Laure Ricks PA - 05/19/2023 7:56 [...] Ricks PA-C Interventional Radiology IR Team Pager [phone] * Consuelo Espinoza RN - 05/18/2023 4:13 PM EDT ANGIO NURSING DATABASE Name: Purnima Thacker Date of : 1955 AGE: 67 y.o. Address: [address] [place] [phone] (home) Mobile: No relevant phone numbers on [...] disease by [facility] 11/09/2022 I25.10 Heart failure with reduced ejection [...] and plan. Cynthia Blackburn MD Nephrology Pager: [phone] * Magdalena Puri, ANURAG - 05/18/2023 10:51 AM EDT Images from the original note were not included. [facility] [address] [place], [place] [address] STRUCTURAL HEART DISEASE CONSULTATION NOTE PRIMARY CARE [...] stenosis. She is now status post TAVR Dzbyg-hw-Gltte with a 23 mm Lai 3 THV 05/12/[address] Sharma. Preliminary findings: Successful right transfemoral TAVR Dzgmy-vv-Erlxe with a 23 mm Lai 3 THV. [...] ejection fraction Mild coronary artery disease by [facility] 11/09/2022 Heart failure with reduced ejection fraction [...] packet 17 g 17 g Oral Daily aMra Serrano APRN 17 g at 05/17/23 0820 [...] 10 mg 10 mg Rectal Daily PRN ChathamMara ernandez APRN melatonin tablet 6 mg 6 [...] stenosis. She is now status post TAVR Zmwax-sy-Ifite with a 23 mm Lai 3 THV [...] re-engage the structural heart team as needed Mgadalena Puri APRN Structural Heart Team Pager [phone] Team Office Please see addendum by Dr. Sharma for final plan and recommendations Associated attestation - Antelmo Sharma MD - 05/19/2023 10:52 PM EDT I have reviewed Magdalena Puri APRN's above history and I agree with the details as written. The assessment and plan were formulated in discussion with me and I agree with them as documented. Antelmo Sharma MD Pager [phone] * Nico Palacios PA - 05/18/2023 8:13 [...] plan as stated. Time IN / OUT: 5210-4690 Total Minutes, Physical Therapy: 54 Billing Code: te-sx2, te-f, gait LOLI HERNANDEZ PT Pager: [phone] Physical Therapy Inpatient Rehabilitation Department * Cynthia [...] Well controlled. Cynthia Blackburn MD Nephrology Pager: [phone] * Mara Serrano, TELEPHONE OPERATOR RECEPTIONIST - 05/17/2023 8:26 AM EDT Cardiac Surgery [...] 0600 and on the weekends please page [phone]. * Guerda Del Valle - 05/16/2023 10:44 AM EDT Nutrition Services Note - Low Nutrition Acuity Purnima Thacker is a 67 y.o. female Reason for intervention: hospital day 9 Nutrition Plan: Continue diet order Encourage good PO Lasix and Zofran noted Added special serve: open containers Monitor weight Patient scheduled for a hospital day 9 nutrition evaluation. Open Hearth Helper met with pt at bedside. Pt reports that her appetite and PO has much improved since admission. Denies nausea/vomiting or trouble chewing/swallowing. Open Hearth Helper provided snack list but pt not interested in adding snacks at this time. Her only concern was that she is worried that she will eat too much which will cause too much pressure in her stomach. Open Hearth Helper assured pt and suggested eating smaller but [...] Last Bowel Movement: 05/10/23 Guerda Del Valle Dentist/Owner * Vinod Juárez PA - 05/16/2023 10:19 [...] 0600 and on the weekends please page [phone]. * Michael Jeffers MD - 05/16/2023 8:11 AM EDT Images from the original note were not included. Hypertension-Nephrology Inpatient Follow-up Purnima Thacker [id number] 1955 ID: 67 y.o. old female seen [...] IRONSAT 12 (L) 05/16/2023 SFOLATE >20.0 07/03/2022 [id number] 07/03/2022 Lab Results Component Value Date [...] Dr. Ayoub. Please contact me at phone: [phone] or pager: [phone] with any questions. Michael Jeffers MD Nephrology [...] -Nephrology consulted, labs and renal US ordered -[place] removed, ambulated around the unit -bilateral pleural [...] 0600 and on the weekends please page [phone]. * Hortencia Cody MD - 05/15/2023 2:07 [...] not included. Hypertension-Nephrology Inpatient Follow-up Purnima Thacker [id number] 1955 ID: 67 y.o. old female seen [...] HGB 7.8 (L) 05/13/2023 SFOLATE >20.0 07/03/2022 [id number] 07/03/2022 Lab Results Component Value Date [...] Dr. Ayoub. Please contact me at phone: [phone] or pager: [phone] with any questions. Michael Jeffers MD Nephrology [...] outlined inthis evaluation. HAVEN BA, PT Pager: [phone] Physical Therapy Inpatient Rehabilitation Department Time IN / OUT: 1190-6441 Total time: Total Minutes, Physical Therapy: 30 [...] 0600 and on the weekends please page [phone]. * Antelmo Sharma MD - 05/14/2023 7:56 AM EDT Images from the original note were not included. [facility] [place] [id number] STRUCTURAL HEART DISEASE CONSULTATION NOTE PRIMARY CARE [...] stenosis. She is now status post TAVR Ymqps-uw-Ktplf with a 23 mm Lai 3 THV 05/12/[address] Sharma. Preliminary findings: Successful right transfemoral TAVR Qmcsl-pz-Jtexa with a 23 mm Lai 3 THV. [...] ejection fraction Mild coronary artery disease by [facility] 11/09/2022 Heart failure with reduced ejection fraction [...] stenosis. She is now status post TAVR Bwcgl-wt-Vmiev with a 23 mm Lai 3 THV [...] Dale ANURAG Kaplan Structural Heart Team Pager [phone] Team Office Please see addendum by Dr. [...] exposure. Nephrology consultationtoday. Antelmo Sharma MD Pager [phone] * Antelmo Cardenas RN - 05/14/2023 5:18 AM EDT Pt AOx4, complaining of mild/moderate generalized pain (states her Meloxicam is effective at home) currently refusing prn oxycodone. NAEON, hemodynamically stable on Milrinone, Maps >65, ST in cyt222's down to NSR with frequent multifocal PVC's. [...] [facility] [place] [id number] STRUCTURAL HEART DISEASE PROGRESS NOTE PRIMARY CARE [...] stenosis. She is now status post TAVR Uceoy-up-Noqlj with a 23 mm Lai 3 THV 05/12/[address] Sharma. Preliminary findings: Successful right transfemoral TAVR Rlnbn-tp-Pcpzx with a 23 mm Lai 3 THV. [...] ejection fraction Mild coronary artery disease by [facility] [facility] 11/09/2022 Heart failure with reduced ejection fraction [...] stenosis. She is now status post TAVR Hraea-kh-Yreyi with a 23 mm Lai 3 THV [...] Brody Kaplan APRN Structural Heart Team Pager [phone] Team Office Please see addendum by Dr. [...] DAPT moving forward. Antelmo Sharma MD Pager [phone] * Bonita Miguel PA - 05/13/2023 8:30 AM EDT Cardiac Surgery Progress Note Purnima Thacker is a 67 y.o. 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 PMH of s/p tissue AVR (2017), mixed connective tissue disease HTN, HLD, NICOLAS, diverticulosis, rosacea, essential tremor, and depression. 24h Events: From track repair laborer for above procedure Extubated at ~1600 [...] soft b/l, no evidence of hematoma. Tubes/Lines/Drains: [place], RIJ, A-line, Art, PIV Assessment/Plan: 67 y.o. [...] 0600 and on the weekends please page [phone]. * Onelia Schwartz MD - 05/12/2023 1:44 [...] ejection fraction Mild coronary artery disease by [facility] 11/09/2022 Heart failure with reduced ejection fraction [...] FiO2 weaned to 40%. 1105: ABG 7.34/42/73/22 4199-5450: SBT performed and passed on these settings [...] PCP: Magdalena Acosta MD PCP phone number: [phone] Date of Admission: 05/08/2023 ( Hospital Day [...] 1447 PHART -- 7.34* 7.34* -- -- [id number] -- 30* 30* -- -- PO2ART -- 72* 81* -- -- EJZ2DVC -- 16.0* 15.7* -- -- LACTATEVEN 2.4* 2.7* 2.7* 4.8* 2.9* VBG (Venous Blood Gas) Recent Labs 05/12/23 0700 05/12/23 0318 05/12/2310505/11/23193905/11/23 1447 LACTATEVEN 2.4* 2.7* 2.7* 4.8* 2.9* Mixed Venous Sat Recent Labs 05/12/23 0508 05/12/23 0321 05/12/23 0114 05/12/23 0030 [id number] 30.7 32.7 37.3 25.1 Objective: Vitals Last [...] have questions please contact the health healthcare architect that requested your imaging first. Electronically signed by: ALIX RUVALCABA MD, [facility] ([phone]), at 05/10/2023 1:[address] Cardiac for [...] have questions please contact the health healthcare architect that requested your imaging first. Electronically signed by: Cullen Narayanan MD, [facility] ([phone]), at 05/11/2023 4:[address] Angiogram Abdomen [...] have questions please contact the health healthcare architect that requested your imaging first. Chest One [...] have questions please contact the health healthcare architect that requested your imaging first. Chest One [...] have questions please contact the health healthcare architect that requested your imaging first. Assessment & [...] and inotrope. She is planned for a kxgzr-xg-glxoy TAVR this morning, which should hopefully improve [...] MD, FACP, FACC Section of Cardiovascular Medicine [facility] Talent Acquisition Relationship Managerproduction officer [facility] at [facility] * Noreen Deutsch RN - 05/12/2023 [...] ejection fraction Mild coronary artery disease by [facility] 11/09/2022 Heart failure with reduced ejection fraction [...] 05/11/2023 4:11 PM EDT Reported off to DELIVERY DEPARTMENT SUPERVISOR and pt transferred over in the bed for higher level of care. * Antelmo Sharma MD - 05/11/2023 9:45 AM EDT Images from the original note were not included. [facility] [place] [id number] STRUCTURAL HEART DISEASE CONSULTATION NOTE PRIMARY CARE [...] who had been referred for possible TAVR vvljd-oa-wyisc evaluation. Her primary symptoms are of dyspnea [...] Ms. Thacker is originally from [facility]. 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 She [...] ejection fraction Mild coronary artery disease by [facility] 11/09/2022 Heart failure with reduced ejection fraction [...] hour(s)) Lactate, whole blood, send to lab ([facility]) Result Value Ref Range Lactate WB 3.1 (H) 0.5 - 2.2 mmol/L Heparin (unfractionated) Level Result Value Ref Range Heparin UFH Level 0.46 IU/mL Lactate, whole blood, send to lab ([facility]) Result Value Ref Range Lactate [...] leads Confirmed by MD Harshil, Enrique Bell ([id number]) on 05/10/2023 8:11:46 AM Cardiac Cath 11/09/2022 [...] Brody Kaplan ANURAG Structural Heart Disease Pager [phone] Please see addendum by Dr. Sharma for [...] signed and dated. Antelmo Sharma MD Pager [phone] * Harini Lance MD - 05/11/2023 6:06 AM EDT Images from the original note were not included. Cardiology Progress Note Patient info: Name: Purnima Thacker : 1955 PCP: Magdalena Acosta MD PCP phone number: [phone] Date of Admission: 05/08/2023 ( Hospital Day [...] have questions please contact the health healthcare architect that requested your imaging first. 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, 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) Mild coronary artery disease by [facility] 11/09/2022 Hyperlipidemia, unspecified NICOLAS (obstructive sleep apnea) [...] PCP: Magdalena Acosta MD PCP phone number: [phone] Date of Admission: 05/08/2023 ( Hospital Day [...] 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) Mild coronary artery disease by [facility] 11/09/2022 Hyperlipidemia, unspecified NICOLAS (obstructive sleep apnea) [...] PCP: Magdalena Acosta MD PCP phone number: [phone] Date of Admission: 05/08/2023 ( Hospital Day [...] Gas) No results found for: PHART, PO2ART, JIP7TAF, GEP6DOV Microbiology: Microbiology Results (Last 30 days) No [...] PPx: Diet: Daily Healthy Menu Choices/Cardiac diet ([facility]-Diet) Lines: Peripheral IV [...] 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) Mild coronary artery disease by [facility] 11/09/2022 Hyperlipidemia, unspecified NICOLAS (obstructive sleep apnea) [...] disease by [facility] 11/09/2022 I25.10 Heart failure with reduced ejection fraction due to heart valve disease I50.20, I38 Cardiogenic shock R57.0 S/P TAVR (transcatheter aortic valve replacement) Z95.2 Past Medical History: Diagnosis Date Anemia Past Surgical History: Procedure Laterality Date PRG CATH PLMT LEFT HEART CATH & ARTS W/INJ & ANGIO IMG S&I N/A 11/09/2022 CORONARY ANGIOGRAPHY; W [facility],POSSIBLE PCI (WRVU 5.6) performed by Mario Alberto Escobedo MD at [facility] CATH LABS PRO AORTOPLAS FOR SUPRAVALV STEN N/A 09/21/2016 @AORTOPLASTY FOR SUPRAVALVULAR STENOSIS (WRVU 29.33) performed by Alirio Hudson MD at [facility] MAIN OR PRO REPLACEMENT PROSTHETIC AORTIC VALVE OPEN W CARDIOPULMONARY BYPASS HOMOGRF/STENT N/A 09/21/2016 @REPLACE AORTIC VALVE, OPEN, W\CPB, W\PROSTHETIC VALVE (WRVU 41.32) performed by Alirio Hudson MD at [facility] MAIN OR Social History and Habits: [...] Verio test strips Strip USE DAILY OneTouch DelAvancert Plus Lancet 33 gauge Misc USE DAILY [...] disease by [facility] 11/09/2022 I25.10 Heart failure with reduced ejection fraction due to heart valve disease I50.20, I38 Cardiogenic shock R57.0 S/P TAVR (transcatheter aortic valve replacement) Z95.2 Past Medical History: Diagnosis Date Anemia Past Surgical History: Procedure Laterality Date PRG CATH PLMT LEFT HEART CATH & ARTS W/INJ & ANGIO IMG S&I N/A 11/09/2022 CORONARY ANGIOGRAPHY; W [facility],POSSIBLE PCI (WRVU 5.6) performed by Mario Alberto Escobedo MD at [facility] CATH LABS PRO AORTOPLAS FOR SUPRAVALV STEN N/A 09/21/2016 @AORTOPLASTY FOR SUPRAVALVULAR STENOSIS (WRVU 29.33) performed by Alirio Hudson MD at [facility] MAIN OR PRO REPLACEMENT PROSTHETIC AORTIC VALVE OPEN W CARDIOPULMONARY BYPASS HOMOGRF/STENT N/A 09/21/2016 @REPLACE AORTIC VALVE, OPEN, W\CPB, W\PROSTHETIC VALVE (WRVU 41.32) performed by Alirio Hudson MD at [facility] MAIN OR Social History and Habits: [...] days, which prompted her to present to [facility]. She also endorses some intermittent retrosternal chest pain with exertion.She endorses some dizziness with exertion, but has not gotten faint or passed out. At [facility] she was noted to be afebrile, blood pressure 105/64, HR 120s, satting 95% on 2L NC. Labs from [facility] are below, of note she [...] 89/59, which prompted the transfer to us. [facility] labs: CBC - Hgb 10.5 CMP - Cr 1.1 BNP 29028 HsTrop 1358 Lactate 1.6 D-dimer 1183 Interval [...] Code Status: Attempt Cardiopulmonary Resuscitation - Inpatient [facility] Roman Reid MD Internal Medicine PGY-1 Pager [phone], M1-S1 Service Associated attestation - Juan Luis Gonzalez MD - 05/08/2023 10:00 PM EDT Cardiology Attending Addendum Active Hospital Problems Diagnosis Symptomatic severe aortic stenosis with low ejection fraction Heart failure with reduced ejection fraction due to heart valve disease Mild coronary artery disease by [facility] 11/09/2022 Hyperlipidemia, unspecified History of aortic valve [...] PCP: Magdalena Acosta MD PCP phone number: [phone] Date of Admission: 05/08/2023 ( Hospital Day 0 days ) Attending:Enrique Chua MD ID: Purnima Thacker is a 67 y.o. female w/ PMH of s/p bioprosthetic AVR in 2016 with recent concern for severe restenosis, HTN, HLD, mixed connective tissue disease, who presents in transfer from [facility] with worsening BONILLA and weight [...] four days, which promptedher to present to [facility]. She also endorses some intermittent retrosternal chest pain with exertion. She endorses some dizziness with exertion, but has not gotten faint or passed out. At [facility] she was noted to be afebrile, blood pressure 105/64, HR 120s, satting 95% on 2L NC. Labs from [facility] are below, of note she [...] 89/59, which prompted the transfer to us. [facility] labs: CBC - Hgb 10.5 CMP - Cr 1.1 BNP 29432 HsTrop 1358 Lactate 1.6 D-dimer 1183 Vasoactive [...] tissue disease, [facility] and weight gain [...] #Routine Diet: Daily Healthy Menu Choices/Cardiac diet ([facility]-Diet) DVT Prophylaxis: heparin [...] to the planned procedure. Hand Hygiene: The cogeneration operator did perform hand hygiene prior to [...] Successful arterial line placement. Crispin Timmons MD District Administrator Associated attestation - Onelia Schwartz MD - [...] (flow was non-pulsatile) and appearance of blood. [place]-Marily catheter was placed and locked at 55 [...] information for follow-up [facility], [place] [address] [place] [address] Cardiac Rehab, [facility] [address] [address] [facility] [address] [place] [address] Transportation: family or friend will provide *Brother [...] Type: *No Product type* / Secondary Insurance: [employer] [place] Prescription Coverage: Yes This plan was formulated with input from patient, family (please identify family/friend involved ifapplicable) and team. All are in agreement with plan. Aliza Martino MSN-Ed, RN ACM cleaner touch up worker Office of Care Management Pager #[phone] * Plan of Care - Favian Mckeon [...] Chaudhary RN - 05/21/2023 4:46 PM EDTSummary: [facility] referral OFFICE OF CARE MANAGEMENT [...] Type: *No Product type* / Secondary Insurance: [employer] [place] Last Physical Therapy Recommendation: (Home with assist [...] affiliations within the [facility] and educate about their right to choose where referrals are sent. provide a list of Home Health Agencies / Durable Medical Equipment vendors which serve their preferred geographic area. They have requested referrals to: [facility] [address] [place] [address] Ortho Care Located @ [place], [place] Note routed to a Plastic And Reconstructive Surgeon who will communicate referrals to facilities and provide any required information. Transportation: family or friend will provide *Brother Raymond on Tuesday 05/22 at 1000 Barriers to discharge: Does not have home 22/02 assist available until tomorrow Tuesday 05/22 Plan going forward: Discharge home into the 22/02 home care of brother Raymond with [facility] and [facility] PT/OT services on Tuesday 05/22 [...] Attending: All Staff: Staff Role Juanita Almaguer Party Plan Salesperson Laure Ricks PA Physician Design Maintenance Engineer Magdalena Rodriguez morphology teacher Nurse Consuelo Espinoza, morphology teacher Nurse Post-operative diagnosis/Indication: Right pleural effusion Name [...] Type: *No Product type* / Secondary Insurance: [employer] [facility] Last Physical Therapy Recommendation: jail facility, swing bed rehabilitation facility with to be determined Last Occupational Therapy Recommendation: with Plan for discharge is: [facility] Facility / Swing Outpatient Agency/Support Group Needs: None Agency Referrals: Based on discussions with the multi-disciplinary healthcare team, the patient would benefit from SNF / Swing level of care at discharge. I have met with the patient to: discuss discharge planning needs. provide the [facility], Office of Care Management letter from the [employer] Making Machinist pertaining to rehab referrals. provide a letter describing our affiliations within the [facility] and educate about their right to choose where referrals are sent. provide the CMS Star Quality Rating handout. review the different levels of rehab including SNF, swing, and acute. provide a list of facilities within their preferred geographic area. request that they provide at least three choices for referral. They have requested referrals to: [facility] [address] [place] [address] [facility]) [address] [place] [address] (Accepts pts only after exhausting all other local SNF options) [facility] ([facility]) ([facility]) [address] [place] [address] PHONE: [phone] FAX: [phone] [facility] [place] ([facility]) [facility]) [address] [place] [address] PHONE: [phone] FAX: [phone] Note routed to a Plastic And Reconstructive Surgeon who will communicate referrals to facilities and [...] Crenshaw RN - 05/17/2023 10:25 AM EDT [facility] CARDIAC REHABILITATION Purnima Thacker was seen today regarding participation in the outpatient Phase 2 Cardiac Rehabilitation at [facility]. The patient agrees to a [...] from the original note were not included. [facility] NEPHROLOGY/HYPERTENSION CONSULT NOTE PATIENT: Purnima Thacker [...] in her course. She ultimately underwent a ovyus-ot-qflos procedure on and tolerated it well (see [...] 1423 05/12/23 1105 PHART 7.39 7.37 7.34* UIS1FNY 33* 36 42 PO2ART 101 102 73* BZV0TKN 19.5* 20.4 22.1 LACTATEVEN 1.5 1.8 2.8* GRX0MQM 40 40 40 PFRATIOART2 252 255 182 VBG (Venous Blood Gas) Recent Labs 05/12/23 1557 05/12/23 1423 05/12/23 1105 LACTATEVEN 1.5 1.8 2.8* Mixed Venous Sat Recent Labs 05/12/23 1425 05/12/23 0508 05/12/23 0321 P8JMDJ4 59.9 30.7 32.7 LFT's: Recent Labs 05/14/23 0110 05/13/23 0115 05/12/23 0600 BILITOT 0.4 0.5 0.9 BILIDIR -- 0.3 -- ALBUMIN 3.6 3.0* 3.5 ALKPHOS 86 85 100 ALT 437* 903* 1,174* AST 319* 792* 1,435* No results found for: UPROTCREAT No results found for: TPROTEINPEP, ALBELECT No results found for: MICROALBUR, LYSU17BMM No results found for: HA1C Lab Results Component Value Date CALCIUM 8.5 05/14/2023 PHOS 4.7 (H) 05/08/2023 No results found for: 25OHVITD MICROBIOLOGY: ProcedureComponentValueUnitsDate/TimeUrine culture [[id number]]Collected: 05/11/231921Lab Status: Final resultSpecimen: Clean Catch UrineUpdated: [...] consulted for assessment if this patient needs STRATEGIC MARKETING MANAGER. Atthis time, we can likely hold off on STRATEGIC MARKETING MANAGER. Her volume status appears sufficient and her metabolic kanwal angements with mild acidosis is not too profound. Patient does not have significant uremic symptoms. We can hold off for today, but the patient is a high risk candidate for needing STRATEGIC MARKETING MANAGER in future daysespecially if her Cr curve trends the direction it is for the next several days. S/p Xpzij-ht-Ydxej TF TAVR: Management per cardiology. On milrinone gtt. PLAN: - Please obtain following diagnostics: renal US, urinalysis, urine prot/Cr ratio, urine albumin/Cr ratio, CK, uric acid, serum osmol, daily VBGs - No acute indications for STRATEGIC MARKETING MANAGER/dialysis. We will keep close eye on Cr trend, volume status, and metabolics to ensure patient still does not need STRATEGIC MARKETING MANAGER as she ensues intrinsic renal recovery - [...] M.H.A., M.A. PGY-V Nephrology-Hypertension Fellow Page # [phone] [facility] [address] 2nd floor, Educational Consultant [address] [place] [address] * Care Management - Mario Alberto Olmos [...] Type: *No Product type* / Secondary Insurance: [facility] Plan for discharge is: Home w/o [...] HOSPITAL at 0945. Was intubated in the track repair laborer due to agitation. Maintained bedrest for [...] Operative Note Patient Name: Purnima Thacker : [id number] MR#: [id number] Case Date: 05/12/2023 Surgeon: Surgeon(s) and Role: [...] procedure Note: Patient Name: Purnima Thacker : [id number] MR#: [id number] Case Date: 05/12/2023 Operators Surgeon: Surgeon(s) and [...] main with 4.0 x 30 mm Resolute [facility] Eluting Stent Perclose x1 + Angio-seal 8 Fr x1, RFA Manual pressure, LFA Manual pressure, LFV Endotracheal intubation (performed by cardiac anesthesia) Preliminary findings: Successful right transfemoral TAVR Sruqb-zn-Sralu with a 23 mm Lai 3 THV. [...] MD, M.Sc. Structural Heart Disease Fellow Pager :[phone] Antelmo Sharma MD Pager [phone] * Op Note - Alirio Hudson MD - 05/12/2023 7:37 AM EDT Preop Diagnosis: Severe aortic stenosis, symptomatic. Postop Diagnosis: Same. Procedure: Transfemoral TAVR procedure with 23mm valve. Surgeon: Alirio Hudson M.D. Crown Blocker: Danny CULP Procedure: The patient was taken to the track repair laborer. The patient had monitored anesthesia care. 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 [address] STRUCTURAL HEART DISEASE CONSULTATION NOTE PRIMARY CARE [...] who had been referred for possible TAVR oktxt-jy-wgfnq evaluation. Her primary symptoms are of dyspnea [...] Ms. Thacker is originally from [facility]. 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 PROBLEM LIST: Patient Active Problem List Diagnosis Symptomatic severe aortic stenosis with low ejection fraction Mild coronary artery disease by [facility] 11/09/2022 Heart failure with reduced ejection fraction [...] hour(s)) Lactate, whole blood, send to lab ([facility]) Result Value Ref Range Lactate [...] leads Confirmed by MD Harshil, Enrique Bell ([id number]) on 05/10/2023 8:11:46 AM Assessment and Plan: [...] Antelmo Sharma MD Structural Heart Disease Pager [phone] * Plan of Care - Sarahi Nice [...] Transfer from another hospital Location: admitted from [facility] Reason for Hospitalization: Critical aortic [...] care in [place] must abide by [place] law. The hierarchy [...] (i) The agent with financial power of second chef or a conservator appointed in accordance with [...] Current DME: none Home Address confirmed as: [address] [place] [phone] Social & Family Supports: All names listed [...] *No Product type* / Secondary Insurance: [facility] [place] ONLY if patient has Medicare A&B - Does this patient have secondary insurance?: Yes ; Prescription Coverage: Yes Preferred Pharmacy: updated to [facility] in [facility] Status: Patient is a : No Primary Care Provider confirmed: Magdalena Acosta MD [phone] Patient/Caregiver Goals of Treatment: Potential Needs for [...] of a 2 story home with [address] [facility]. Patient is independent with ADL's [...] of care planning. Alie Bradshaw RN, CM Pager-[phone] * Plan of Care - Emily Lucero RN - 05/08/2023 2:54 PM EDT OUTCOME EVALUATION NOTE: OUTCOME SUMMARY: Pt arrived from [facility]. A&O, no c/o pain or [...] AM EDT Appointment [place] [address] 05/12/2024 10:00 AM EDT Office Visit [place] [address] Markel Borjas MD [facility] [address] HEMATOLOGY [place] [address] 03/01/2025 4:15 PM EDT Office Visit Dermatology at [place] [address] [place] [phone] Marek Bonilla MD [address], [address] DERMATOLOGY [place], [place] [id number] Scheduled Referrals Name Type Priority Associated Diagnoses [...] Heart Cath W/Inj L Ventriculography, Img S&I ([id number]) 05/12/2023 7:37 AM EDT Aortic valve stenosis, [...] COLOR DOPP (07/08/2023 12:15 PM EST) Pathologist [facility] EF 20 [employer] SYSTEM Anatomical Region Laterality Modality Cardiac Other 07/08/2023 10:3 1 AM EST Narrative 07/08/2023 12:26 PM EST [address] [place] [id number] ? Echocardiogram Report Name: PURNIMA THACKER ?Study Date: 07/08/2023 10:31 AMBP: 118/60 mmHg ? Patient Location: : 1955 ? Height: 155 cm ? Account: [id number] Age: 67 yrs ? Weight: 74 kg Gender: Female ?BSA: 1.7 m2 Ordering Physician: ALIRIO HUDSON Referring Physician: VINOD JUÁREZ Performed By: Felicia Norris RDCS Reason For Study: S/P TAVR Exam Location: [facility]. Interpretation Summary Left ventricular systolic [...] no significant change (post-procedure). Procedure Limited - 81665. Doppler - 57927. Color Doppler - 74530. Satisfactory quality. This study is limited because [...] Note Lee Kincaid MD - 07/08/2023 [address] [place] [address] Echocardiogram Report Name: PURNIMA THACKER Study Date: 0:31 AMBP: 118/60 mmHg Patient Location: : 1955 Height: 155 cm Account: [id number] Age: 67 yrs Weight: 74 kg Gender: Female BSA: 1.7 m2 Ordering Physician: ALIRIO HUDSON Referring Physician: VINOD JUÁREZ Performed By: Felicia Norris RDCS Reason For Study: S/P TAVR Exam Location: [facility]. Interpretation Summary Left ventricular systolic [...] is nosignificant change (post-procedure). Procedure Limited - 79163. Doppler - 56916. Color Doppler - 87758. Satisfactoryquality. This study is limited because of [...] Glucose 93 65 - 199 mg/dL [facility] Comment:Diabetes: >=200 mg/d L plus symptoms Blood Urea Nitrogen 19(H) 8 - 18 mg/dL [facility] Creatinine 0.81 0.70 - 1.20 mg/dL [facility] Sodium 142 135 - 145 mmol/L [facility] Potassium 3.8 3.5 - 5.0 mmol/L [facility] Comment: Please note: ??Patients with WBC >100,000 may have falsely elevated Potassium levels. ??For accurate Potassium quantification in these patients send serum separator tube (gold top) for subsequent determinations. ??Contact the Clinical Chemistry Laboratory if there are any questions. Chloride 104 98 - 107 mmol/L [facility] Carbon Dioxide 26 22 - 31 mmol/L [facility] Anion Gap 12 5 - 15 mmol/L [facility] Calcium 10.2 8.5 - 10.5 mg/dL [facility] Protein, Total 7.4 6.1 - 8.0 g/dL [facility] Albumin 4.1 3.2 - 5.2 g/dL [facility] Aspartate Aminotransferase 24 0 - 30 unit/L [facility] Alanine Aminotransferase 12 0 - 30 unit/L [facility] Alkaline Phosphatase 93 35 - 105 unit/L [facility] Bilirubin, Total 0.3 0.2 - 1.3 mg/dL [facility] Est Glomerular Filtration Rate 80 >=60 mL/min/1. 73 m?? [facility] Comment: This patient's estimated GFR was [...] [facility] Co de Phone Number [facility] [place] [address] * (ABNORMAL) Basic Metabolic Panel (non-fasting) (05/22/2023 3:57 AM EDT) Pathologist [facility] Glucose 88 65 - 199 mg/dL [facility] Comment:Diabetes: >=200 mg/d L plus symptoms Blood Urea Nitrogen 21(H) 8 - 18 mg/dL [facility] Creatinine 0.69(L) 0.70 - 1.20 mg/dL [facility] Sodium 136 135 - 145 mmol/L [facility] Potassium 3.6 3.5 - 5.0 mmol/L [facility] Comment: Please note: ??Patients with WBC >100,000 may have falsely elevated Potassium levels. ??For accurate Potassium quantification in these patients send serum separator tube (gold top) for subsequent determinations. ??Contact the Clinical Chemistry Laboratory if there are any questions. Chloride 102 98 - 107 mmol/L [facility] Carbon Dioxide 23 22 - 31 mmol/L [facility] Anion Gap 11 5 - 15 mmol/L [facility] Calcium 8.6 8.5 - 10.5 mg/dL [facility] Est Glomerular Filtration Rate 95 >=60 mL/min/1. 73 m?? [facility] Comment: This patient's estimated GFR was [...] Lab Mara Maggie OSBORN CHEMISTRY ORDERABL ES [facility] [place] [address] * (ABNORMAL) Basic Metabolic Panel (non-fasting) (05/21/2023 5:06 AM EDT) Pathologist [facility] Glucose 87 65 - 199 mg/dL [facility] Comment:Diabetes: >=200 mg/d L plus symptoms Blood Urea Nitrogen 25(H) 8 - 18 mg/dL [facility] Creatinine 0.84 0.70 - 1.20 mg/dL [facility] Sodium 136 135 - 145 mmol/L [facility] Potassium 3.6 3.5 - 5.0 mmol/L [facility] Comment: Please note: ??Patients with WBC >100,000 may have falsely elevated Potassium levels. ??For accurate Potassium quantification in these patients send serum separator tube (gold top) for subsequent determinations. ??Contact the Clinical Chemistry Laboratory if there are any questions. Chloride 102 98 - 107 mmol/L [facility] Carbon Dioxide 26 22 - 31 mmol/L [facility] Anion Gap 8 5 - 15 mmol/L [facility] Calcium 8.9 8.5 - 10.5 mg/dL [facility] Est Glomerular Filtration Rate 76 >=60 mL/min/1. 73 m?? [facility] Comment: This patient's estimated GFR was [...] Narrative Resulting Agency Comment Spec In Lab [facility] TELEPHONE OPERATOR RECEPTIONIST CHEMISTRY ORDERABL ES Performing Organization Address [facility] Co de Phone Number [facility] [place] [address] * Lavender Tube HOLD (05/20/2023 2:52 AM EDT) Lavender Hold Sample in lab. [facility] Blood Venous Draw / Unknown 05/20/2023 2:52 AM EDT 05/20/2023 3:04 AM EDT [facility] TELEPHONE OPERATOR RECEPTIONIST HEMATOLOGY ORDERAB LES Performing Organization Address [facility] Co de Phone Number [facility] [place] [address] * (ABNORMAL) Basic Metabolic Panel (non-fasting) (05/20/2023 2:52 AM EDT) Glucose 152 65 - 199 mg/dL [facility] Comment:Diabetes: >=200 mg/d L plus symptoms Blood Urea Nitrogen 33(H) 8 - 18 mg/dL [facility] Creatinine 0.82 0.70 - 1.20 mg/dL [facility] Sodium 137 135 - 145 mmol/L [facility] Potassium 3.7 3.5 - 5.0 mmol/L [facility] Comment: Please note: ??Patients with WBC >100,000 may have falsely elevated Potassium levels. ??For accurate Potassium quantification in these patients send serum separator tube (gold top) for subsequent determinations. ??Contact the Clinical Chemistry Laboratory if there are any questions. Chloride 99 98 - 107 mmol/L [facility] Carbon Dioxide 22 22 - 31 mmol/L [facility] Anion Gap 16(H) 5 - 15 mmol/L [facility] Calcium 9.0 8.5 - 10.5 mg/dL [facility] Est Glomerular Filtration Rate 78 >=60 mL/min/1. 73 m?? [facility] Comment: This patient's estimated GFR was [...] Agency Comment Spec In Lab Mara Thomasfield TELEPHONE OPERATOR RECEPTIONIST CHEMISTRY ORDERABL ES Performing Organization Address [facility] Co de Phone Number [facility] [place] [address] * (ABNORMAL) Potassium (05/20/2023 2:52 AM EDT) [facility] Signature Potassium 3.4(L) 3.5 - 5.0 mmol/L [facility] Comment: Please note: ??Patients with WBC >100,000 may have falsely elevated Potassium levels. ??For accurate Potassium quantification in these patients send serum separator tube (gold top) for subsequent determinations. ??Contact the Clinical Chemistry Laboratory if there are any questions. Blood 05/20/2023 2:52 AM EDT 05/20/2023 3:03 AM EDT Narrative Resulting Agency Comment Spec In Lab Mara [place]field TELEPHONE OPERATOR RECEPTIONIST CHEMISTRY ORDERABL ES Performing Organization Address [place]/[facility] Co de Phone Number [facility] [place] [address] * XR Chest PA & Lateral (Generic) [...] have questions please contact the health healthcare architect that requested your imaging first. ? Electronically signed by: Chyna Johnson MD, [facility] ??([phone]), at 05/19/2023 2:19 PM Narrative 05/19/2023 2:19 [...] who have questions please contactthe health healthcare architect that requested your imaging first. Alirio Hudson MD IMG DX ORDERABLES * (ABNORMAL) Basic Metabolic Panel (non-fasting) (05/19/2023 5:49 AM EDT) Glucose 93 65 - 199 mg/dL [facility] Comment:Diabetes: >=200 mg/d L plus symptoms Blood Urea Nitrogen 45(H) 8 - 18 mg/dL [facility] Creatinine 1.02 0.70 - 1.20 mg/dL [facility] Sodium 138 135 - 145 mmol/L [facility] Potassium 3.9 3.5 - 5.0 mmol/L [facility] Comment: Please note: ??Patients with WBC >100,000 may have falsely elevated Potassium levels. ??For accurate Potassium quantification in these patients send serum separator tube (gold top) for subsequent determinations. ??Contact the Clinical Chemistry Laboratory if there are any questions. Chloride 102 98 - 107 mmol/L [facility] Carbon Dioxide 26 22 - 31 mmol/L [facility] Anion Gap 10 5 - 15 mmol/L [facility] Calcium 9.7 8.5 - 10.5 mg/dL [facility] Est Glomerular Filtration Rate 60 >=60 mL/min/1. 73 m?? [facility] Comment: This patient's estimated [...] Agency Comment Spec In Lab Mara Serrano TELEPHONE OPERATOR RECEPTIONIST [place] [address] * IR Chest Tube Placement Right (05/18/2023 [...] Glucose 95 65 - 199 mg/dL [facility] Comment:Diabetes: >=200 mg/d L plus symptoms Blood Urea Nitrogen 71(H) 8 - 18 mg/dL [facility] Comment:result rechecked-[facility] Creatinine 1.64(H) 0.70 - 1.20 mg/dL [facility] Comment:result rechecked-[facility] Sodium 137 135 - 145 mmol/L [facility] Potassium 3.7 3.5 - 5.0 mmol/L [facility] Comment: Please note: ??Patients with WBC >100,000 may have falsely elevated Potassium levels. ??For accurate Potassium quantification in these patients send serum separator tube (gold top) for subsequent determinations. ??Contact the Clinical Chemistry Laboratory if there are any questions. Chloride 100 98 - 107 mmol/L [facility] Carbon Dioxide 24 22 - 31 mmol/L [facility] Anion Gap 13 5 - 15 mmol/L [facility] Calcium 9.7 8.5 - 10.5 mg/dL [facility] Est Glomerular Filtration Rate 34(L) >=60 mL/min/1. 73 m?? [facility] Comment: This patient's estimated GFR was [...] Agency Comment Spec In Lab Mara Serrano TELEPHONE OPERATOR RECEPTIONIST CHEMISTRY ORDERABL ES [facility] [place] [address] * XR Chest PA & Lateral (Generic) [...] have questions please contact the health healthcare architect that requested your imaging first. ? Narrative [...] who have questions please contactthe health healthcare architect that requested your imaging first. Alirio Hudson MD IMG DX ORDERABLES * (ABNORMAL) Comprehensive metabolic panel (non-fasting) (05/17/2023 4:35 AM EDT) Glucose 89 65 - 199 mg/dL [facility] Comment:Diabetes: >=200 mg/d L plus symptoms Blood Urea Nitrogen 97(H) 8 - 18 mg/dL [facility] Creatinine 2.97(H) 0.70 - 1.20 mg/dL [facility] Comment:result rechecked-[facility] Sodium 135 135 - 145 mmol/L [facility] Potassium 4.1 3.5 - 5.0 mmol/L [facility] Comment: Please note: ??Patients with WBC >100,000 may have falsely elevated Potassium levels. ??For accurate Potassium quantification in these patients send serum separator tube (gold top) for subsequent determinations. ??Contact the Clinical Chemistry Laboratory if there are any questions. Chloride 97(L) 98 - 107 mmol/L [facility] Carbon Dioxide 22 22 - 31 mmol/L [facility] Anion Gap 16(H) 5 - 15 mmol/L [facility] Calcium 9.6 8.5 - 10.5 mg/dL [facility] Protein, Total 6.5 6.1 - 8.0 g/dL [facility] Albumin 3.7 3.2 - 5.2 g/dL [facility] Aspartate Aminotransferase 58(H) 0 - 30 unit/L [facility] Alanine Aminotransferase 66(H) 0 - 30 unit/L [facility] Alkaline Phosphatase 86 35 - 105 unit/L [facility] Bilirubin, Total 0.6 0.2 - 1.3 mg/dL [facility] Est Glomerular Filtration Rate 17(L) >=60 mL/min/1. 73 m?? [facility] Comment: This patient's estimated GFR was [...] Alirio Hudson MD CHEMISTRY ORDERABLE S [facility] [place] [address] * Potassium (05/16/2023 11:15 PM EDT) Potassium 3.7 3.5 - 5.0 mmol/L [facility] Comment: Please note: ??Patients with WBC [...] S Performing Organization Address [facility]/ZIP Co de Phone Number [facility] [place] [address] * Magnesium (05/16/2023 5:22 PM EDT) Pathologist [facility] Magnesium 0.96 0.69 - 1.07 mmol/L [facility] Blood 05/16/2023 5:22 PM EDT 05/16/2023 5:27 PM EDT Narrative Resulting Agency Comment Spec In Lab Alirio Hudson MD CHEMISTRY ORDERABLE S Performing Organization Address [facility] Co de Phone Number [facility] [place] [address] * (ABNORMAL) Basic Metabolic Panel (non-fasting) (05/16/2023 5:22 PM EDT) Pathologist [facility] Glucose 106 65 - 199 mg/dL [facility] Comment:Diabetes: >=200 mg/d L plus symptoms Blood Urea Nitrogen 103(H) 8 - 18 mg/dL [facility] Creatinine 3.91(H) 0.70 - 1.20 mg/dL [facility] Comment:result rechecked-imm Sodium 132(L) 135 - 145 mmol/L [facility] Potassium 3.6 3.5 - 5.0 mmol/L [facility] Comment: Please note: ??Patients with WBC >100,000 may have falsely elevated Potassium levels. ??For accurate Potassium quantification in these patients send serum separator tube (gold top) for subsequent determinations. ??Contact the Clinical Chemistry Laboratory if there are any questions. Chloride 92(L) 98 - 107 mmol/L [facility] Carbon Dioxide 22 22 - 31 mmol/L [facility] Anion Gap 18(H) 5 - 15 mmol/L [facility] Calcium 9.7 8.5 - 10.5 mg/dL [facility] Est Glomerular Filtration Rate 12(L) >=60 mL/min/1. 73 m?? [facility] Comment: This patient's estimated GFR was [...] MD CHEMISTRY ORDERABLE S Performing Organization Address City/[facility]/ZIP Co de Phone Number [facility] [place] [address] * (ABNORMAL) Potassium (05/16/2023 11:43 AM EDT) Potassium 3.3(L) 3.5 - 5.0 mmol/L [facility] Comment: Please note: ??Patients with WBC [...] MD CHEMISTRY ORDERABLE S Performing Organization Address City/[facility]/ZIP Co de Phone Number [facility] [place] [address] * (ABNORMAL) Ferritin (05/16/2023 4:41 AM EDT) Pathologist [facility] Ferritin 1,813(H) 30 - 400 ng/mL [facility] Comment: Pediatric reference ranges not verified at [facility], interpret with caution. Reference ranges for females greater than 50 years of age approach values for men, i.e., 30-400 ng/mL. Blood 05/16/2023 4:41 AM EDT 05/16/2023 4:54 AM EDT Narrative Resulting Agency Comment Spec In Lab Kristopher Ayoub MD CHEMISTRY ORDERABLES [facility] [place] [address] * (ABNORMAL) PTH (05/16/2023 4:41 AM EDT) [facility] Parathyroid Hormone 120(H) 15 - 65 pg/mL [facility] Blood 05/16/2023 4:41 AM EDT 05/16/2023 4:54 AM EDT Narrative Resulting Agency Comment Spec In Lab Kristopher Ayoub MD CHEMISTRY ORDERABLES [facility] [place] [address] * Vitamin D, 25-Hydroxy (05/16/2023 4:41 AM EDT) [facility] Vitamin D Total 25 OH 33 21 - 100 ng/mL [facility] Vit D Interp Sufficient [facility] Blood 05/16/2023 4:41 AM EDT 05/16/2023 4:54 AM EDT Narrative Resulting Agency Comment Spec In Lab Kristopher Ayoub MD CHEMISTRY ORDERABLES [facility] [place] [address] * (ABNORMAL) Blood Gas Venous ([facility]) (05/16/2023 4:22 AM EDT) pH, Venous 7.41 7.32 - 7.42 [facility] PCO2, Venous 32(L) 41 - 51 mmHg [facility] PO2, Venous 73(H) 25 - 40 mmHg [facility] Bicarbonate, Venous 19.6 mmol/L [facility] Base Excess, Venous -5.1 mmol/L [facility] Hgb Blood Gas 9.7(L) 11.7 - 15.5 g/dL [facility] Oxyhemoglobin, Venous 92.8 % [facility] Carboxyhemoglob in, Venous 0.1 % [facility] Comment: Nonsmokers: 0.5-1.5% COHB Smokers: Variable, but usually less than 10% Toxic: 20-30% COHB Lethal: Greater than 60% COHB Methemoglobin, Venous 0.3 <=1.5 % [facility] Na Whole Blood 130(L) 135 - 145 mmol/L [facility] K Whole Blood 3.7 3.5 - 5.0 mmol/L [facility] Comment: Please note: Patients with WBC >100,000 may have falsely elevated Potassium levels. Contact the Clinical Chemistry Laboratory if there are any questions. ICa Whole Blood 1.15 1.15 - 1.33 mmol/L [facility] Comment: Note: ??Total bilirubin higher than 20 mg/dL may lead to falsely low ionized calcium. CL Whole Blood 95(L) 98 - 107 mmol/L [facility] Gluc Whole Bld 82 65 - 199 mg/dL [facility] Comment:Diabetes: >=200 mg/d L plus symptoms Lactate WB 1.1 0.5 - 2.2 mmol/L [facility] Blood Gas Source Venous [facility] Blood Venous Draw / Unknown 05/16/2023 4:22 AM EDT 05/16/2023 4:31 AM EDT Narrative Resulting Agency Comment Spec In Lab Bonita TOBAR CHEMISTRY ORDERABLES [facility] [place] [address] * (ABNORMAL) Differential, Automated (05/16/2023 4:20 AM EDT) Neutrophil % 84.1 % [facility] Neutrophil Absolute 6.22(H) 1.70 - 6.10 x10(3)/mc L [facility] Lymph % 5.8 % [facility] Lymphocytes Abs 0.4(L) 0.9 - 3.2 x10(3)/mc L [facility] Monocyte % 8.8 % [facility] Monocyte Abs 0.6 0.3 - 0.9 x10(3)/ L [facility] Eos % 0.4 % [facility] Eosinophils Abs 0.0 0.0 - 0.4 x10(3)/mc L [facility] Basophil % 0.0 % [facility] Baso Absolute 0.0 0.0 - 0.1 x10(3)/ L [facility] Immature Gran % 0.90 % [facility] Comment: Immature granulocytes(IG's)percentage and absolute count will include metamyelocytes, myelocytes, and promyelocytes. Blood smears from CBCs yielding IG's will be scanned manually for concordance. If this scan disagrees with the automated IG or if promyelocytes are noted, a manual differential will be performed. Immature Gran Absolute 0.07(H) 0.00 - 0.04 x10(3)/ L [facility] Blood 05/16/2023 4:20 AM EDT 05/16/2023 4:29 AM EDT Narrative Resulting Agency Comment Spec In Lab James Agustin MD HEMATOLOGY ORDER JODIE [facility] [place] [address] * (ABNORMAL) Hemogram (05/16/2023 4:20 AM EDT) White Blood Cell 7.4 4.0 - 9.5 x10(3)/mc L [facility] Red Blood Cell 2.40(L) 4.00 - 5.21 x10(6)/mc L [facility] Hemoglobin 7.8(L) 11.7 - 15.5 g/dL [facility] Hematocrit 22.5(L) 35.7 - 45.8 % [facility] Mean Cell Volume 93.8 82.6 - 94.4 fL [facility] Mean Cell Hemoglobin 32.5(H) 27.1 - 32.0 pg [facility] Mean Cell Hemoglobin Concentration 34.7 31.7 - 35.0 g/dL [facility] Platelet 120(L) 145 - 357 x10(3)/mc L [facility] RDW Standard Deviation 42.9 37.0 - 46.0 fL [facility] RDW coefficient of variation 12.9 11.5 - 14.1 % [facility] Mean Platelet Volume 11.3 7.6 - 12.9 fL [facility] NRBC% auto 0.7 % [facility] NRBC Absolute 0.050(H) 0.000 - 0.000 x10(3)/ L [facility] Blood 05/16/2023 4:20 AM EDT 05/16/2023 4:29 AM EDT Narrative Resulting Agency Comment Spec In Lab James Agustin MD HEMATOLOGY ORDER JODIE [facility] [place] [address] * (ABNORMAL) Basic Metabolic Panel (non-fasting) (05/16/2023 4:20 AM EDT) Glucose 89 65 - 199 mg/dL [facility] Comment:Diabetes: >=200 mg/d L plus symptoms Blood Urea Nitrogen 108(H) 8 - 18 mg/dL [facility] Creatinine 4.74(H) 0.70 - 1.20 mg/dL [facility] Comment:result rechecked-[place] Sodium 132(L) 135 - 145 mmol/L [facility] Potassium 3.9 3.5 - 5.0 mmol/L [facility] Comment: Please note: ??Patients with WBC >100,000 may have falsely elevated Potassium levels. ??For accurate Potassium quantification in these patients send serum separator tube (gold top) for subsequent determinations. ??Contact the Clinical Chemistry Laboratory if there are any questions. Chloride 95(L) 98 - 107 mmol/L [facility] Carbon Dioxide 18(L) 22 - 31 mmol/L [facility] Anion Gap 19(H) 5 - 15 mmol/L [facility] Calcium 9.2 8.5 - 10.5 mg/dL [facility] Est Glomerular Filtration Rate 10(L) >=60 mL/min/1. 73 m?? [facility] Comment: This patient's estimated GFR was [...] MD CHEMISTRY ORDERABLE S Performing Organization Address City/[facility]/ZIP Co de Phone Number [facility] [place] [address] * (ABNORMAL) Iron and TIBC (05/16/2023 4:20 AM EDT) Iron 31 30 - 150 mcg/dL [facility] TIBC 259 250 - 450 mcg/dL [facility] Iron Saturation 12(L) 20 - 50 % [facility] Blood 05/16/2023 4:20 AM EDT 05/16/2023 4:29 AM EDT Narrative Resulting Agency Comment Spec In Lab Kristopher Ayoub MD CHEMISTRY ORDERABLES [facility] [place] [address] * (ABNORMAL) Basic Metabolic Panel (non-fasting) (05/15/2023 12:50 AM EDT) Glucose 101 65 - 199 mg/dL [facility] Comment:Diabetes: >=200 mg/d L plus symptoms Blood Urea Nitrogen 109(H) 8 - 18 mg/dL [facility] Creatinine 5.62(H) 0.70 - 1.20 mg/dL [facility] Comment:result rechecked-[place] Sodium 131(L) 135 - 145 mmol/L [facility] Comment:result rechecked-[place] Potassium 3.7 3.5 - 5.0 mmol/L [facility] Comment: result rechecked-[place] Please note: ??Patients with WBC >100,000 may have falsely elevated Potassium levels. ??For accurate Potassium quantification in these patients send serum separator tube (gold top) for subsequent determinations. ??Contact the Clinical Chemistry Laboratory if there are any questions. Chloride 92(L) 98 - 107 mmol/L [facility] Comment:result rechecked-[place] Carbon Dioxide 18(L) 22 - 31 mmol/L [facility] Comment:result rechecked-[place] Anion Gap 21(H) 5 - 15 mmol/L [facility] Calcium 8.9 8.5 - 10.5 mg/dL [facility] Est Glomerular Filtration Rate 8(L) >=60 mL/min/1. 73 m?? [facility] Comment: This patient's estimated GFR was [...] Alirio Hudson MD CHEMISTRY ORDERABLE S [facility] [place] [address] * (ABNORMAL) Hemogram (05/15/2023 12:50 AM EDT) White Blood Cell 9.1 4.0 - 9.5 x10(3)/mc L [facility] Red Blood Cell 2.19(L) 4.00 - 5.21 x10(6)/mc L [facility] Hemoglobin 7.2(L) 11.7 - 15.5 g/dL [facility] Hematocrit 20.6(L) 35.7 - 45.8 % [facility] Mean Cell Volume 94.1 82.6 - 94.4 fL [facility] Mean Cell Hemoglobin 32.9(H) 27.1 - 32.0 pg [facility] Mean Cell Hemoglobin Concentration 35.0 31.7 - 35.0 g/dL [facility] Platelet 109(L) 145 - 357 x10(3)/mc L [facility] RDW Standard Deviation 43.6 37.0 - 46.0 fL [facility] RDW coefficient of variation 12.9 11.5 - 14.1 % [facility] Mean Platelet Volume 10.4 7.6 - 12.9 fL [facility] NRBC% auto 2.1 % [facility] NRBC Absolute 0.190(H) 0.000 - 0.000 x10(3)/ L [facility] Blood 05/15/2023 12:5 0 AM EDT 05/15/2023 12:52 AM EDT Narrative Resulting Agency Comment Spec In Lab Alirio Hudson MD HEMATOLOGY ORDERABL ES Performing Organization Address City/State/[facility] Co de Phone Number [facility] [place] [address] * (ABNORMAL) BLOOD GAS 2 VENOUS (05/15/2023 12:49 AM EDT) pH, Venous 7.33 7.32 - 7.42 [facility] PCO2, Venous 37(L) 41 - 51 mmHg [facility] PO2, Venous 34 25 - 40 mmHg [facility] Bicarbonate, Venous 19.1 mmol/L [facility] Base Excess, Venous -6.8 mmol/L [facility] Hgb Blood Gas 10.8(L) 11.7 - 15.5 g/dL [facility] Oxyhemoglobin, Venous 58.1 % [facility] Carboxyhemoglob in, Venous 0.3 % [facility] Comment: Nonsmokers: 0.5-1.5% COHB Smokers: Variable, but usually less than 10% Toxic: 20-30% COHB Lethal: Greater than 60% COHB Methemoglobin, Venous 0.6 <=1.5 % [facility] Na Whole Blood 136 135 - 145 mmol/L [facility] K Whole Blood 3.7 3.5 - 5.0 mmol/L [facility] Comment: Please note: Patients with WBC >100,000 may have falsely elevated Potassium levels. Contact the Clinical Chemistry Laboratory if there are any questions. ICa Whole Blood 1.12(L) 1.15 - 1.33 mmol/L [facility] Comment: Note: ??Total bilirubin higher than 20 mg/dL may lead to falsely low ionized calcium. CL Whole Blood 95(L) 98 - 107 mmol/L [facility] Gluc Whole Bld 101 65 - 199 mg/dL [facility] Comment:Diabetes: >=200 mg/d L plus symptoms Lactate WB 1.3 0.5 - 2.2 mmol/L [facility] Flow, Mike 1.0 LPM [facility] Blood Gas Source Venous [facility] Blood 05/15/2023 12:4 9 AM EDT 05/15/2023 12:49 AM EDT Alirio Hudson MD POINT OF CARE TEST ORDERABLES Performing Organization Address City/State/[facility] Co de Phone Number [facility] [address] * US Retroperitoneal Complete (05/14/2023 3:53 PM [...] have questions, please contact the health healthcare architect that requested your imaging first. ? Hayden Robledo, Staff Physician Electronically Signed Final Report ?? 05/14/2023 04:39 pm Narrative 05/14/2023 4:39 PM EDT Renal ? (Signed Final 05/14/2023 04:39 pm) PATIENT INFO: ID #: ? [id number] ?: ??55 (67 yrs)(F) Name: ? PURNIMA THACKER ?Visit Date: 05/14/2023 03:44 pm PERFORMED BY: Attending: ?Meena CULP, Hayden Stafford Resident: ? Anand Camejo MD Performed By: ? Consuelo Tello RDMS Referred By: ?ALIRIO HUDSON Location: ? [place] SERVICE(S) PROVIDED: URETRO - Retroperitoneal Complete - [id number] ? [id number] INDICATIONS: [facility] COMPARISON: CT: Abdomen/Pelvis 05/11/23 RIGHT [...] 05/14/2023 04:39 pm) PATIENT INFO: ID #: [id number] : 55 (67 yrs)(F) Name: PURNIMA THACKER Visit Date: 05/14/2023 03:44 pm PERFORMED BY: Attending: Hayden Robledo MD Resident: Anand Camejo MD Performed By: Consuelo Tello RDMS Referred By: ALIRIO HUDSON Location: [place] SERVICE(S) PROVIDED: URETRO - Retroperitoneal Complete - [id number] INDICATIONS: EVANS COMPARISON: CT: Abdomen/Pelvis 05/11/23 RIGHT [...] have questions, please contact the health healthcare architect that requested your imaging first. Hayden Robledo, Staff Physician Electronically Signed Final Report 05/14/2023 04:39 pm Alirio Hudson MD IMG US GEN ORDERABL ES * CK (05/14/2023 3:17 PM EDT) Creatine Kinase 123 0 - 160 unit/L [facility] Blood 05/14/2023 3:17 PM EDT 05/14/2023 3:31 PM EDT Narrative Resulting Agency Comment Spec In Lab Alirio Hudson MD CHEMISTRY ORDERABLE S Performing Organization Address City/[facility]/ZIP Co de Phone Number [facility] [place] [address] * (ABNORMAL) Uric acid (05/14/2023 3:17 PM EDT) Uric Acid 14.9(H) 2.5 - 6.5 mg/dL [facility] Blood 05/14/2023 3:17 PM EDT 05/14/2023 3:31 PM EDT Narrative Resulting Agency Comment Spec In Lab Alirio Hudson MD CHEMISTRY ORDERABLE S [facility] [place] [address] * (ABNORMAL) Osmolality (05/14/2023 3:17 PM EDT) Osmolality 311(H) 275 - 295 mOsm/kg [facility] Blood 05/14/2023 3:17 PM EDT 05/14/2023 3:31 PM EDT Narrative Resulting Agency Comment Spec In Lab Alirio Hudson MD CHEMISTRY ORDERABLE S [facility] [place] [address] * (ABNORMAL) Differential, Automated (05/14/2023 1:10 AM EDT) Neutrophil % 87.2 % [facility] Neutrophil Absolute 9.74(H) 1.70 - 6.10 x10(3)/mc L [facility] Lymph % 3.9 % [facility] Lymphocytes Abs 0.4(L) 0.9 - 3.2 x10(3)/mc L [facility] Monocyte % 7.9 % [facility] Monocyte Abs 0.9 0.3 - 0.9 x10(3)/mc L [facility] Eos % 0.0 % [facility] Eosinophils Abs 0.0 0.0 - 0.4 x10(3)/mc L [facility] Basophil % 0.1 % [facility] Baso Absolute 0.0 0.0 - 0.1 x10(3)/mc L [facility] Immature Gran % 0.90 % [facility] Comment: Immature granulocytes(IG's)percentage and absolute count will include metamyelocytes, myelocytes, and promyelocytes. Blood smears from CBCs yielding IG's will be scanned manually for concordance. If this scan disagrees with the automated IG or if promyelocytes are noted, a manual differential will be performed. Immature Gran Absolute 0.10(H) 0.00 - 0.04 x10(3)/mc L [facility] Blood 05/14/2023 1:10 AM EDT 05/14/2023 1:24 AM EDT Narrative Resulting Agency Comment Spec In Lab Bonita TOBAR HEMATOLOGY ORDERABLE S [facility] [place] [address] * (ABNORMAL) Hemogram (05/14/2023 1:10 AM EDT) White Blood Cell 11.2(H) 4.0 - 9.5 x10(3)/mc L [facility] Red Blood Cell 2.19(L) 4.00 - 5.21 x10(6)/mc L [facility] Hemoglobin 7.2(L) 11.7 - 15.5 g/dL [facility] Hematocrit 20.3(L) 35.7 - 45.8 % [facility] Mean Cell Volume 92.7 82.6 - 94.4 fL [facility] Mean Cell Hemoglobin 32.9(H) 27.1 - 32.0 pg [facility] Mean Cell Hemoglobin Concentration 35.5(H) 31.7 - 35.0 g/dL [facility] Platelet 112(L) 145 - 357 x10(3)/mc L [facility] RDW Standard Deviation 41.4 37.0 - 46.0 fL [facility] RDW coefficient of variation 12.5 11.5 - 14.1 % [facility] Mean Platelet Volume 10.4 7.6 - 12.9 fL [facility] NRBC% auto 1.5 % [facility] NRBC Absolute 0.170(H) 0.000 - 0.000 x10(3)/mc L [facility] Blood 05/14/2023 1:10 AM EDT 05/14/2023 1:24 AM EDT Narrative Resulting Agency Comment Spec In Lab Bonita TOBAR HEMATOLOGY ORDERABLE S Performing Organization Address City/State/[facility] Co de Phone Number [facility] [place] [address] * (ABNORMAL) Comprehensive metabolic panel (non-fasting) (05/14/2023 1:10 AM EDT) Glucose 120 65 - 199 mg/dL [facility] Comment:Diabetes: >=200 mg/d L plus symptoms Blood Urea Nitrogen 98(H) 8 - 18 mg/dL [facility] Creatinine 4.80(H) 0.70 - 1.20 mg/dL [facility] Comment:result rechecked-ssc Sodium 132(L) 135 - 145 mmol/L [facility] Potassium 4.1 3.5 - 5.0 mmol/L [facility] Comment: Please note: ??Patients with WBC >100,000 may have falsely elevated Potassium levels. ??For accurate Potassium quantification in these patients send serum separator tube (gold top) for subsequent determinations. ??Contact the Clinical Chemistry Laboratory if there are any questions. Chloride 94(L) 98 - 107 mmol/L [facility] Carbon Dioxide 18(L) 22 - 31 mmol/L [facility] Anion Gap 20(H) 5 - 15 mmol/L [facility] Calcium 8.5 8.5 - 10.5 mg/dL [facility] Protein, Total 5.8(L) 6.1 - 8.0 g/dL [facility] Albumin 3.6 3.2 - 5.2 g/dL [facility] Aspartate Aminotransferase 319(H) 0 - 30 unit/L [facility] Alanine Aminotransferase 437(H) 0 - 30 unit/L [facility] Alkaline Phosphatase 86 35 - 105 unit/L [facility] Bilirubin, Total 0.4 0.2 - 1.3 mg/dL [facility] Est Glomerular Filtration Rate 9(L) >=60 mL/min/1. 73 m?? [facility] Comment: This patient's estimated GFR was [...] Alirio Hudson MD CHEMISTRY ORDERABLE S [facility] [place] [address] * APTT (05/13/2023 10:15 AM EDT) Partial [...] ES Performing Organization Address [facility] de Phone Number [facility] [place] [address] * (ABNORMAL) Prothrombin Time (05/13/2023 10:15 AM EDT) Prothrombin Time 14.6(H) 9.4 - 12.5 sec [facility] International Normalization Ratio 1.3 [facility] Comment: An INR <2.0 indicates adequate [...] MD HEMATOLOGY ORDERABL ES Performing Organization Address [facility] de Phone Number [facility] [place] [address] * EKG 12 Lead (05/13/2023 9:22 AM EDT) Ventricular rate 92 BPM MUSE SYSTEM Atrial Rate 92 BPM MUSE SYSTEM P-R Interval 140 ms MUSE SYSTEM QRS Duration 104 ms MUSE SYSTEM Q-T Interval 384 ms MUSE SYSTEM QTC Calculated (Bezet) 474 ms MUSE SYSTEM Calculated P [place] 33 degrees MUSE SYSTEM Calculated R [place] 41 degrees MUSE SYSTEM Calculated T [place] -35 degrees MUSE SYSTEM INTERPRETATION Sinus rhythm with frequent Premature ventricular complexes Septal infarct , age undetermined ST & T wave abnormality, consider lateral ischemia Abnormal ECG When compared with ECG of 12-MAY-2023 10:10, Premature ventricular complexes are now Present I personally reviewed the tracing and edited the fellows interpretation Confirmed by fellow MD Anitha, Carissa ([id number]) on 05/13/2023 3:25:30 PM Confirmed by Maxx Best ([id number]) on 05/13/2023 8:30:56 PM MUSE SYSTEM 05/13/2023 9:22 AM EDT 05/13/2023 8:30 PM EDT Alirio Hudson MD ECG ORDERABLES MUSE SYSTEM * (ABNORMAL) Differential, Automated (05/13/2023 1:15 AM EDT) Neutrophil % 88.1 % [facility] Neutrophil Absolute 7.62(H) 1.70 - 6.10 x10(3)/mc L [facility] Lymph % 3.1 % [facility] Lymphocytes Abs 0.3(L) 0.9 - 3.2 x10(3)/mc L [facility] Monocyte % 7.9 % [facility] Monocyte Abs 0.7 0.3 - 0.9 x10(3)/mc L [facility] Eos % 0.0 % [facility] Eosinophils Abs 0.0 0.0 - 0.4 x10(3)/mc L [facility] Basophil % 0.1 % [facility] Baso Absolute 0.0 0.0 - 0.1 x10(3)/mc L [facility] Immature Gran % 0.80 % [facility] Comment: Immature granulocytes(IG's)percentage and absolute count will include metamyelocytes, myelocytes, and promyelocytes. Blood smears from CBCs yielding IG's will be scanned manually for concordance. If this scan disagrees with the automated IG or if promyelocytes are noted, a manual differential will be performed. Immature Gran Absolute 0.07(H) 0.00 - 0.04 x10(3)/mc L [facility] Blood 05/13/2023 1:15 AM EDT 05/13/2023 1:29 AM EDT Narrative Resulting Agency Comment Spec In Lab Lorri TOBAR HEMATOLOGY ORDERABLE S [facility] [place] [address] * (ABNORMAL) Hemogram (05/13/2023 1:15 AM EDT) White Blood Cell 8.6 4.0 - 9.5 x10(3)/mc L [facility] Red Blood Cell 2.37(L) 4.00 - 5.21 x10(6)/mc L [facility] Hemoglobin 7.8(L) 11.7 - 15.5 g/dL [facility] Hematocrit 22.2(L) 35.7 - 45.8 % [facility] Mean Cell Volume 93.7 82.6 - 94.4 fL [facility] Mean Cell Hemoglobin 32.9(H) 27.1 - 32.0 pg [facility] Mean Cell Hemoglobin Concentration 35.1(H) 31.7 - 35.0 g/dL [facility] Platelet 130(L) 145 - 357 x10(3)/mc L [facility] RDW Standard Deviation 41.7 37.0 - 46.0 fL [facility] RDW coefficient of variation 12.5 11.5 - 14.1 % [facility] Mean Platelet Volume 10.2 7.6 - 12.9 fL [facility] NRBC% auto 0.5 % [facility] NRBC Absolute 0.040(H) 0.000 - 0.000 x10(3)/mc L [facility] Blood 05/13/2023 1:15 AM EDT 05/13/2023 1:29 AM EDT Narrative Resulting Agency Comment Spec In Lab Lorri TOBAR HEMATOLOGY ORDERABLE S [facility] [place] [address] * (ABNORMAL) Hepatic Function Panel (05/13/2023 1:15 AM EDT) Protein, Total 5.5(L) 6.1 - 8.0 g/dL [facility] Albumin 3.0(L) 3.2 - 5.2 g/dL [facility] Aspartate Aminotransferase 792(H) 0 - 30 unit/L [facility] Alanine Aminotransferase 903(H) 0 - 30 unit/L [facility] Alkaline Phosphatase 85 35 - 105 unit/L [facility] Bilirubin, Total 0.5 0.2 - 1.3 mg/dL [facility] Bilirubin, Direct 0.3 0.0 - 0.3 mg/dL [facility] Blood 05/13/2023 1:15 AM EDT 05/13/2023 1:29 AM EDT Narrative Resulting Agency Comment Spec In Lab Alirio Hudson MD CHEMISTRY ORDERABLE S Performing Organization Address City/State/[facility] Co de Phone Number [facility] [place] [address] * (ABNORMAL) Basic Metabolic Panel (non-fasting) (05/13/2023 1:15 AM EDT) Glucose 107 65 - 199 mg/dL [facility] Comment:Diabetes: >=200 mg/d L plus symptoms Blood Urea Nitrogen 82(H) 8 - 18 mg/dL [facility] Creatinine 3.15(H) 0.70 - 1.20 mg/dL [facility] Comment:result rechecked-OG Sodium 132(L) 135 - 145 mmol/L [facility] Potassium 3.8 3.5 - 5.0 mmol/L [facility] Comment: Please note: ??Patients with WBC >100,000 may have falsely elevated Potassium levels. ??For accurate Potassium quantification in these patients send serum separator tube (gold top) for subsequent determinations. ??Contact the Clinical Chemistry Laboratory if there are any questions. Chloride 95(L) 98 - 107 mmol/L [facility] Carbon Dioxide 20(L) 22 - 31 mmol/L [facility] Anion Gap 17(H) 5 - 15 mmol/L [facility] Calcium 8.3(L) 8.5 - 10.5 mg/dL [facility] Est Glomerular Filtration Rate 16(L) >=60 mL/min/1. 73 m?? [facility] Comment: This patient's estimated GFR was [...] [facility] Co de Phone Number [facility] [place] [address] * (ABNORMAL) BLOOD GAS 2 ARTERIAL (05/12/2023 3:57 PM EDT) pH, Arterial 7.39 7.35 - 7.45 [facility] PCO2, Arterial 33(L) 35 - 45 mmHg [facility] PO2, Arterial 101 85 - 104 mmHg [facility] Bicarbonate, Arterial 19.5(L) 20.0 - 26.0 mmol/L [facility] Base Excess, Arterial -5.5(L) -3.0 - 3.0 mmol/L [facility] Hgb Blood Gas 9.8(L) 11.7 - 15.5 g/dL [facility] Oxyhemoglobin, Arterial 95.2 94.0 - 97.0 % [facility] Carboxyhemoglob in, Arterial 0.2 % [facility] Comment: Nonsmokers: 0.5-1.5% COHB Smokers: Variable, but usually less than 10% Toxic: 20-30% COHB Lethal: Greater than 60% COHB Methemoglobin, Arterial 0.8 <=1.5 % [facility] Na Whole Blood 129(L) 135 - 145 mmol/L [facility] K Whole Blood 3.8 3.5 - 5.0 mmol/L [facility] Comment: Please note: Patients with WBC >100,000 may have falsely elevated Potassium levels. Contact the Clinical Chemistry Laboratory if there are any questions. ICa Whole Blood 1.05(L) 1.15 - 1.33 mmol/L [facility] Comment: Note: ??Total bilirubin higher than 20 mg/dL may lead to falsely low ionized calcium. CL Whole Blood 96(L) 98 - 107 mmol/L [facility] Gluc Whole Bld 178 65 - 199 mg/dL [facility] Comment:Diabetes: >=200 mg/d L plus symptoms. Lactate WB 1.5 0.5 - 2.2 mmol/L [facility] FIO2 Art 40 % [facility] PF Ratio Art 252 [facility] Blood 05/12/2023 3:57 PM EDT 05/12/2023 3:57 PM EDT Alirio Hudson MD POINT OF CARE TEST ORDERABLES Performing Organization Address [facility] Co de Phone Number [facility] [place] [address] * (ABNORMAL) Coox2 (05/12/2023 2:25 PM EDT) pO2, Coox 37 mmHg [facility] Hgb Blood Gas 9.5(L) 11.7 - 15.5 g/dL [facility] Oxyhemoglobin, Coox 59.9 % [facility] Carboxyhemoglo bin, Coox 0.3 % [facility] Comment: Nonsmokers: 0.5-1.5% COHB Smokers: Variable, but usually less than 10% Toxic: 20-30% COHB Lethal: Greater than 60% COHB Methemoglobin, Coox 0.7 <=1.5 % [facility] Source Coox Mixed Venous [facility] Blood 05/12/2023 2:25 PM EDT 05/12/2023 2:25 PM EDT Alirio Hudson MD POINT OF CARE TEST ORDERABLES Performing Organization Address [facility] Co de Phone Number [facility] [place] [address] * (ABNORMAL) BLOOD GAS 2 ARTERIAL (05/12/2023 2:23 PM EDT) pH, Arterial 7.37 7.35 - 7.45 [facility] PCO2, Arterial 36 35 - 45 mmHg [facility] PO2, Arterial 102 85 - 104 mmHg [facility] Bicarbonate, Arterial 20.4 20.0 - 26.0 mmol/L [facility] Base Excess, Arterial -4.8(L) -3.0 - 3.0 mmol/L [facility] Hgb Blood Gas 12.7 11.7 - 15.5 g/dL [facility] Oxyhemoglobin, Arterial 95.4 94.0 - 97.0 % [facility] Carboxyhemoglob in, Arterial 0.3 % [facility] Comment: Nonsmokers: 0.5-1.5% COHB Smokers: Variable, but usually less than 10% Toxic: 20-30% COHB Lethal: Greater than 60% COHB Methemoglobin, Arterial 0.7 <=1.5 % [facility] Na Whole Blood 129(L) 135 - 145 mmol/L [facility] K Whole Blood 3.7 3.5 - 5.0 mmol/L [facility] Comment: Please note: Patients with WBC >100,000 may have falsely elevated Potassium levels. Contact the Clinical Chemistry Laboratory if there are any questions. ICa Whole Blood 1.05(L) 1.15 - 1.33 mmol/L [facility] Comment: Note: ??Total bilirubin higher than 20 mg/dL may lead to falsely low ionized calcium. CL Whole Blood 95(L) 98 - 107 mmol/L [facility] Gluc Whole Bld 168 65 - 199 mg/dL [facility] Comment:Diabetes: >=200 mg/d L plus symptoms. Lactate WB 1.8 0.5 - 2.2 mmol/L [facility] FIO2 Art 40 % [facility] PF Ratio Art 255 [facility] Blood 05/12/2023 2:23 PM EDT 05/12/2023 2:23 PM EDT Alirio Hudson MD POINT OF CARE TEST ORDERABLES [facility] [place] [address] * (ABNORMAL) Troponin (05/12/2023 2:05 PM EDT) Troponin-T, High Sensitivity 1,022(H) <=14 ng/L [facility] Comment: This patient's troponin T concentration [...] troponin value can be found in the [facility] Laboratory Test Catalog Troponin - [facility] Laboratory Test Catalog Reference: Fourth [place] Definition of Myocardial Infarction. Journal of the [place] [employer] 2018;72:4467-8843 Blood 05/12/2023 2:05 PM EDT 05/12/2023 2:14 PM EDT Narrative Resulting Agency Comment Spec In Lab Alirio Hudson MD CHEMISTRY ORDERABLE S [facility] [place] [address] * (ABNORMAL) Hemoglobin (05/12/2023 2:05 PM EDT) Hemoglobin 8.5(L) 11.7 - 15.5 g/dL [facility] Blood 05/12/2023 2:05 PM EDT 05/12/2023 2:14 PM EDT Narrative Resulting Agency Comment Spec In Lab Alirio Hudson MD HEMATOLOGY ORDERABL ES Performing Organization Address [facility] Co de Phone Number [facility] [place] [address] * Potassium (05/12/2023 2:05 PM EDT) Potassium 3.9 3.5 - 5.0 mmol/L [facility] Comment: Please note: ??Patients with WBC [...] S Performing Organization Address [facility] Co de Phone Number [facility] [place] [address] * (ABNORMAL) BLOOD GAS 2 ARTERIAL (05/12/2023 11:05 AM EDT) pH, Arterial 7.34(L) 7.35 - 7.45 [facility] PCO2, Arterial 42 35 - 45 mmHg [facility] PO2, Arterial 73(L) 85 - 104 mmHg [facility] Bicarbonate, Arterial 22.1 20.0 - 26.0 mmol/L [facility] Base Excess, Arterial -3.6(L) -3.0 - 3.0 mmol/L [facility] Hgb Blood Gas 9.3(L) 11.7 - 15.5 g/dL [facility] Oxyhemoglobin, Arterial 89.3(L) 94.0 - 97.0 % [facility] Carboxyhemoglob in, Arterial 0.2 % [facility] Comment: Nonsmokers: 0.5-1.5% COHB Smokers: Variable, but usually less than 10% Toxic: 20-30% COHB Lethal: Greater than 60% COHB Methemoglobin, Arterial 0.9 <=1.5 % [facility] Na Whole Blood 131(L) 135 - 145 mmol/L [facility] K Whole Blood 3.8 3.5 - 5.0 mmol/L [facility] Comment: Please note: Patients with WBC >100,000 may have falsely elevated Potassium levels. Contact the Clinical Chemistry Laboratory if there are any questions. ICa Whole Blood 1.04(L) 1.15 - 1.33 mmol/L [facility] Comment: Note: ??Total bilirubin higher than 20 mg/dL may lead to falsely low ionized calcium. CL Whole Blood 96(L) 98 - 107 mmol/L [facility] Gluc Whole Bld 152 65 - 199 mg/dL [facility] Comment:Diabetes: >=200 mg/d L plus symptoms. Lactate WB 2.8(H) 0.5 - 2.2 mmol/L [facility] FIO2 Art 40 % [facility] PF Ratio Art 182 [facility] Blood 05/12/2023 11:0 5 AM EDT 05/12/2023 11:05 AM EDT Alirio Hudson MD POINT OF CARE TEST ORDERABLES [facility] [place] [address] * (ABNORMAL) BLOOD GAS 2 ARTERIAL (05/12/2023 10:14 AM EDT) pH, Arterial 7.18(Criti gabrielle) 7.35 - 7.45 [facility] Comment:Noted by surgical instrument repair specialist. PCO2, Arterial 45 35 - 45 mmHg [facility] PO2, Arterial 186(H) 85 - 104 mmHg [facility] Bicarbonate, Arterial 16.2(L) 20.0 - 26.0 mmol/L [facility] Base Excess, Arterial -12.2(L) -3.0 - 3.0 mmol/L [facility] Hgb Blood Gas 10.0(L) 11.7 - 15.5 g/dL [facility] Oxyhemoglobin, Arterial 97.0 94.0 - 97.0 % [facility] Carboxyhemoglob in, Arterial 0.2 % [facility] Comment: Nonsmokers: 0.5-1.5% COHB Smokers: Variable, but usually less than 10% Toxic: 20-30% COHB Lethal: Greater than 60% COHB Methemoglobin, Arterial 0.9 <=1.5 % [facility] Na Whole Blood 129(L) 135 - 145 mmol/L [facility] K Whole Blood 3.6 3.5 - 5.0 mmol/L [facility] Comment: Please note: Patients with WBC >100,000 may have falsely elevated Potassium levels. Contact the Clinical Chemistry Laboratory if there are any questions. ICa Whole Blood 1.10(L) 1.15 - 1.33 mmol/L [facility] Comment: Note: ??Total bilirubin higher than 20 mg/dL may lead to falsely low ionized calcium. CL Whole Blood 97(L) 98 - 107 mmol/L [facility] Gluc Whole Bld 161 65 - 199 mg/dL [facility] Comment:Diabetes: >=200 mg/d L plus symptoms. Lactate WB 3.3(H) 0.5 - 2.2 mmol/L [facility] FIO2 Art 100 % [facility] PF Ratio Art 186 [facility] Blood 05/12/2023 10:1 4 AM EDT 05/12/2023 10:14 AM EDT Alirio Hudson MD POINT OF CARE TEST ORDERABLES Performing Organization Address City/State/[facility] Co de Phone Number [facility] [place] [address] * EKG 12 Lead (05/12/2023 10:10 AM EDT) Ventricular rate 116 BPM MUSE SYSTEM Atrial Rate 116 BPM MUSE SYSTEM P-R Interval 158 ms MUSE SYSTEM QRS Duration 114 ms MUSE SYSTEM Q-T Interval 348 ms MUSE SYSTEM QTC Calculated (Bezet) 483 ms MUSE SYSTEM Calculated P [place] 37 degrees MUSE SYSTEM Calculated R [place] 31 degrees MUSE SYSTEM Calculated T [place] -138 degrees MUSE SYSTEM INTERPRETATION Sinus tachycardia [...] interpretation Confirmed by fellow MD Anuja, Jim ([id number]) on 05/12/2023 1:04:20 PM Confirmed by MD Mono, Eleni ([id number]) on 05/12/2023 9:28:34 PM MUSE SYSTEM 05/12/2023 [...] have questions please contact the health healthcare architect that requested your imaging first. ? Electronically signed by: Chyna Johnson MD, [facility] ??([phone]), at 05/12/2023 10:08 AM Narrative 05/12/2023 10:08 AM EDT EXAMINATION: XR CHEST ONE VIEW CLINICAL HISTORY: Post TAVR TECHNIQUE: 1 view of the chest COMPARISON: Chest radiograph from earlier today FINDINGS: Interval placement of endotracheal tube with tip terminating 2 cm above the shira. Interval placement of enteric tube projecting along the expected course of the esophagus and outside the gkbru-hb-tftt. Interval retraction of right IJ approach pulmonary [...] expected course ofthe esophagus and outside the mmobc-py-usst. Interval retraction of right IJ approach pulmonary [...] who have questions please contactthe health healthcare architect that requested your imaging first. Alirio Hudson [...] 1955 ? Height: 154 cm ? Account: [id number] Age: 67 yrs ? Weight: 75 kg Gender: Female ?BSA: 1.7 m2 Ordering Physician: RADHA HOLLINS Referring Physician: RADHA HOLLINS Performed By: Dilma Bee RDCS Reason For Study: Guidance for TAVR procedure Exam Location: [facility]. Interpretation Summary PRE TAVR: There [...] mL/m2. POST TAVR: Normal function of the bgqib-hb-pjqiq prosthesis. See below for hemodynamic parameters. Slight improvement in left and right ventricular systolic function. LVEF now 20-25%. No pericardial effusion. See report for additional findings. Procedure Limited - 77823. Doppler - 23172. Color Doppler - 97856. Left Ventricle Left ventricle is of normal [...] Date: 307:33 AMBP: 96/63 mmHg Patient Location: [address] : 1955 Height: 154 cm Account: [id number] Age: 67 yrs Weight: 75 kg Gender: Female BSA: 1.7 m2 Ordering Physician: RADHA HOLLINS Referring Physician: RADHA HOLLINS Performed By: Dilma Bee RDCS Reason For Study: Guidance for TAVR procedure Exam Location: [facility]. Interpretation Summary PRE TAVR: There [...] 28mL/m2. POST TAVR: Normal function of the egjox-xj-xyekn prosthesis. See belowfor hemodynamic parameters. Slight improvement in left and right ventricularsystolic function. LVEF now 20-25%. No pericardial effusion. See report for additional findings. Procedure Limited - 44035. Doppler - 19218. Color Doppler - 84046. Left Ventricle Left ventricle is of normal [...] Modality Other Narrative 05/12/2023 2:37 PM EDT ?[facility] ? Cardiac Catheterization/Intervention Report ? Patient Name: Kirstie, Purnima M. ? Procedure Date: 05/12/2023 ? A #: [id number] ? Primary Physician: Antelmo Sharma ? Case #: [id number] ? File Name: [id number] ? Catheterization Order Number: [id number] ? [facility] ? Final Report [place], [place] ? Patient Name: ? Purnima Thacker ? ID#: ?[id number] ? : ?1955 ? Procedure Date: ? May 12, 2023 ? Case #: ? [id number] ? Room: ? 6 ? Case Physicians: ?Antelmo Sharma M.D. ?Start: ?08:03 ?Alirio Hudson M.D. ?Admission: ??05/08/2023 ?Lynda Mcgowan M.D. ? Discharge: ??05/22/2023 ?Fellow: ? Kristied Adair Tejeda ? Referring Physician: ??Mario Alberto Chin M.D. ? Procedures: ?* Coronary Angiography ?* Left Heart Catheterization ?* Coronary Stent Insertion ?* Transcatheter Aortic Valve Replacement ?* Vascular Closure Device Deployment ?* Temporary Pacemaker Insertion In Cogeneration Operator ?* Endotracheal Intubation By Non-Cath Physician [...] was designated as ASA Class IV. The [facility] clinical ?frailty scale is 4: Vulnerable. [...] guide. ??A premounted 4.00 x 30 mm Mackey Durham (MINNA) was ? deployed with a maximum [...] calculated STS risk score was 30.1%. A ibwnq-tn-lrdjq ?procedure was performed on the pre-existing bioprosthetic stented ?prosthesis. The priority of the kotnm-us-jcuer procedure was Elective. ?The procedure was performed [...] Lai 3 Ultra RESILIA 23 mm THV (s/n=[id number]) transcatheter ?valve was inserted using standard technique. [...] to nor was it given in the ?track repair laborer. ?Recommended anti-platelet/anti-thrombotic regimen: ?Continue aspirin 81 mg daily for indefinitely. ?These recommendations are made at the time of the intervention. Patient ?and provider preferences or a changing clinical situation may require ?modification of this regimen. Consult [facility] Interventional Cardiology for [...] regimen. ? Comments: ?Successful right transfemoral TAVR Ptxyk-kg-Txfvs with a 23 mm Lai 3 ?THV. [...] insertion-coronary, access site angiography, ?temporary pacemaker in track repair laborer, intubation-non cath physician, vascular ?closure device, transthoracic echo ??and TAVR. Dr. Alirio Hudson M.D. ?performed the left heart catheterization, access site angiography, ?temporary pacemaker in track repair laborer, vascular closure device, transthoracic ?echo , TAVR and CPR during cath. Dr. Lynda Mcgowan M.D. performed the ABG, ?anesthesia and intubation-non cath physician. ? Antelmo Sharma M.D. ? Electronically Signed by: Antelmo Sharma M.D. ? Report Finalized: 05/12/2023 ??14:31 ? Report Last Ammended: 07/01/2023 ??11:30 ? Procedure Note Antelmo Sharma MD - 07/01/2023 [facility] Cardiac Catheterization/Intervention Report Patient Name: Purnima Thacker Procedure Date: 05/12/2023 A #: [id number] Primary Physician: Antelmo Sharma Case #: [id number] File Name: [id number] Catheterization Order Number: [id number] [facility] FinalReport [place], [place] Patient Name: Purnima Thacker ID#:[id number] :1955 Procedure Date: May 12, 2023 Case #: [id number] Room: 6 Case Physicians: Antelmo Sharma M.D. Start: 08:03 Alirio Hudson M.D. Admission:05/08/2023 Lynda Mcgowan M.D. Discharge:05/22/2023 Fellow: Rebekah Tejeda M.D. Referring Physician: Mario Alberto Chin M.D. Procedures: * Coronary Angiography * Left Heart Catheterization * Coronary Stent Insertion * Transcatheter Aortic Valve Replacement * Vascular Closure Device Deployment * Temporary Pacemaker Insertion In Cogeneration Operator * Endotracheal Intubation By Non-Cath Physician [...] A premounted 4.00 x 30 mm Nils Durham (MINNA) was deployed with a maximum inflation [...] calculated STS risk score was 30.1%. A sucmi-qg-ghibk procedure was performed on the pre-existing bioprosthetic stented prosthesis. The priority of the huxjx-wu-hqjrq procedure wasElective. The procedure was performed under Moderate sedation performed byLynda Mcgowan M.D. (see anesthesia report for additional details). Alirio Hudson M.D. participated in the case (see Cardiac Surgery reportfor additional details). The TAVR sheath was a 14 Fr Corona eSheath Introducer and theaccess site was femoral. Rapid ventricular pacing was performed. An Corona Lai 3 Ultra RESILIA 23 mm THV (s/v=[id number])transcatheter valve was inserted using standard technique. The [...] prior to nor was it given inthe track repair laborer. Recommended anti-platelet/anti-thrombotic regimen: Continue aspirin 81 mg daily for indefinitely. These recommendations are made at the time of the intervention.Patient and provider preferences or a changing clinical situation mayrequire modification of this regimen. Consult [facility] Interventional Cardiologyfor questions. [...] this regimen. Comments: Successful right transfemoral TAVR Vulym-kl-Tcejt with a 23 mmSapien 3 THV. We [...] insertion-coronary, access site angiography, temporary pacemaker in track repair laborer, intubation-non cath physician,vascular closure device, transthoracic echo and TAVR. Dr. Alirio Hudson M.D. performed the left heart catheterization, access site angiography, temporary pacemaker in track repair laborer, vascular closure device,transthoracic echo , TAVR [...] POC 7.20(Crit ical) 7.35 - 7.45 [facility] Comment:Critical value OK, C C Lab. pCO2, POC 42 35 - 45 mmHg [facility] pO2, POC 260(H) 85 - 104 mmHg [facility] Base Excess, POC -11.0(L) -3.0 - 3.0 mmol/L [facility] Bicarbonate, POC 16.7(L) 20.0 - 26.0 mmol/L [facility] Sodium, POC 129(L) 135 - 145 mmol/L [facility] POC Potassium 3.8 3.5 - 5.0 mmol/L [facility] Ionized Calcium, POC 1.12(L) 1.15 - 1.33 mmol/L [facility] POC Hematocrit 23.0(L) 34.0 - 45.0 % [facility] POC Calc Hgb 7.8(L) 11.2 - 15.7 g/dL [facility] Comment:The calculation of h emoglobin from hematocrit assumes a normal MCHC. POC Bgas Loc CC Lab [facility] Blood 05/12/2023 8:50 AM EDT 05/13/2023 12:00 PM EDT Alirio Hudson MD CHEMISTRY ORDERABLE S [facility] [place] [address] * (ABNORMAL) Point of Care Blood Gas Historical (05/12/2023 8:10 AM EDT) pH, POC 7.27(Crit ical) 7.35 - 7.45 [facility] Comment:Critical value OK, C C Lab. pCO2, POC 37 35 - 45 mmHg [facility] pO2, POC 29(Critic al) 85 - 104 mmHg [facility] Comment:Critical value OK, C C Lab. Base Excess, POC -10.0(L) -3.0 - 3.0 mmol/L [facility] Bicarbonate, POC 16.7(L) 20.0 - 26.0 mmol/L [facility] Sodium, POC 123(L) 135 - 145 mmol/L [facility] POC Potassium 4.0 3.5 - 5.0 mmol/L [facility] Ionized Calcium, POC 1.12(L) 1.15 - 1.33 mmol/L [facility] POC Hematocrit 27.0(L) 34.0 - 45.0 % [facility] POC Calc Hgb 9.2(L) 11.2 - 15.7 g/dL [facility] Comment:The calculation of h emoglobin from hematocrit assumes a normal MCHC. POC Bgas Loc CC Lab [facility] Blood 05/12/2023 8:10 AM EDT 05/13/2023 12:00 PM EDT Alirio Hudson MD CHEMISTRY ORDERABLE S [facility] [place] [address] * (ABNORMAL) Lactate, whole blood, send to lab ([facility]) (05/12/2023 7:00 AM EDT) Lactate WB 2.4(H) 0.5 - 2.2 mmol/L [facility] Blood 05/12/2023 7:00 AM EDT 05/12/2023 7:09 AM EDT Narrative Resulting Agency Comment Spec In Lab Radha Hollins MD CHEMISTRY ORDERABL ES Performing Organization Address City/[facility]/ZIP Co de Phone Number [facility] [place] [address] * (ABNORMAL) Comprehensive metabolic panel (non-fasting) (05/12/2023 6:00 AM EDT) Glucose 167 65 - 199 mg/dL [facility] Comment:Diabetes: >=200 mg/d L plus symptoms Blood Urea Nitrogen 67(H) 8 - 18 mg/dL [facility] Creatinine 2.01(H) 0.70 - 1.20 mg/dL [facility] Sodium 131(L) 135 - 145 mmol/L [facility] Potassium 4.3 3.5 - 5.0 mmol/L [facility] Comment: Please note: ??Patients with WBC >100,000 may have falsely elevated Potassium levels. ??For accurate Potassium quantification in these patients send serum separator tube (gold top) for subsequent determinations. ??Contact the Clinical Chemistry Laboratory if there are any questions. Chloride 97(L) 98 - 107 mmol/L [facility] Carbon Dioxide 14(L) 22 - 31 mmol/L [facility] Anion Gap 20(H) 5 - 15 mmol/L [facility] Calcium 8.6 8.5 - 10.5 mg/dL [facility] Protein, Total 6.3 6.1 - 8.0 g/dL [facility] Albumin 3.5 3.2 - 5.2 g/dL [facility] Aspartate Aminotransferase 1,435(H) 0 - 30 unit/L [facility] Alanine Aminotransferase 1,174(H) 0 - 30 unit/L [facility] Alkaline Phosphatase 100 35 - 105 unit/L [facility] Bilirubin, Total 0.9 0.2 - 1.3 mg/dL [facility] Est Glomerular Filtration Rate 27(L) >=60 mL/min/1. 73 m?? [facility] Comment: This patient's estimated GFR was [...] MD CHEMISTRY ORDERABL ES Performing Organization Address City/State/[facility] Co de Phone Number [facility] [place] [address] * (ABNORMAL) Coox2 (05/12/2023 5:08 AM EDT) pO2, Coox 24 mmHg [facility] Hgb Blood Gas 10.4(L) 11.7 - 15.5 g/dL [facility] Oxyhemoglobin, Coox 30.7 % [facility] Carboxyhemoglo bin, Coox 0.3 % [facility] Comment: Nonsmokers: 0.5-1.5% COHB Smokers: Variable, but usually less than 10% Toxic: 20-30% COHB Lethal: Greater than 60% COHB Methemoglobin, Coox 0.8 <=1.5 % [facility] Source Coox Mixed Venous [facility] Blood 05/12/2023 5:08 AM EDT 05/12/2023 5:08 AM EDT Radha Hollins MD POINT OF CARE TEST ORDERABLES Performing Organization Address [facility] Co de Phone Number [facility] [place] [address] * (ABNORMAL) Coox2 (05/12/2023 3:21 AM EDT) pO2, Coox 25 mmHg [facility] Hgb Blood Gas 10.8(L) 11.7 - 15.5 g/dL [facility] Oxyhemoglobin, Coox 32.7 % [facility] Carboxyhemoglo bin, Coox 0.3 % [facility] Comment: Nonsmokers: 0.5-1.5% COHB Smokers: Variable, but usually less than 10% Toxic: 20-30% COHB Lethal: Greater than 60% COHB Methemoglobin, Coox 0.7 <=1.5 % [facility] Source Coox Mixed Venous [facility] Blood 05/12/2023 3:21 AM EDT 05/12/2023 3:21 AM EDT Radah Hollins MD POINT OF CARE TEST ORDERABLES Performing Organization Address [facility] de Phone Number [facility] [place] [address] * (ABNORMAL) BLOOD GAS 2 ARTERIAL (05/12/2023 3:18 AM EDT) pH, Arterial 7.34(L) 7.35 - 7.45 [facility] PCO2, Arterial 30(L) 35 - 45 mmHg [facility] PO2, Arterial 72(L) 85 - 104 mmHg [facility] Bicarbonate, Arterial 16.0(L) 20.0 - 26.0 mmol/L [facility] Base Excess, Arterial -9.8(L) -3.0 - 3.0 mmol/L [facility] Hgb Blood Gas 11.0(L) 11.7 - 15.5 g/dL [facility] Oxyhemoglobin, Arterial 89.8(L) 94.0 - 97.0 % [facility] Carboxyhemoglob in, Arterial 0.3 % [facility] Comment: Nonsmokers: 0.5-1.5% COHB Smokers: Variable, but usually less than 10% Toxic: 20-30% COHB Lethal: Greater than 60% COHB Methemoglobin, Arterial 0.7 <=1.5 % [facility] Na Whole Blood 131(L) 135 - 145 mmol/L [facility] K Whole Blood 4.2 3.5 - 5.0 mmol/L [facility] Comment: Please note: Patients with WBC >100,000 may have falsely elevated Potassium levels. Contact the Clinical Chemistry Laboratory if there are any questions. ICa Whole Blood 1.12(L) 1.15 - 1.33 mmol/L [facility] Comment: Note: ??Total bilirubin higher than 20 mg/dL may lead to falsely low ionized calcium. CL Whole Blood 100 98 - 107 mmol/L [facility] Gluc Whole Bld 160 65 - 199 mg/dL [facility] Comment:Diabetes: >=200 mg/d L plus symptoms. Lactate WB 2.7(H) 0.5 - 2.2 mmol/L [facility] Flow Art 5.0 LPM [facility] Blood 05/12/2023 3:18 AM EDT 05/12/2023 3:18 AM EDT Radha Hollins MD POINT OF CARE TEST ORDERABLES Performing Organization Address City/State/[facility] Co de Phone Number [facility] [place] [address] * (ABNORMAL) Coox2 (05/12/2023 1:14 AM EDT) pO2, Coox 28 mmHg [facility] Hgb Blood Gas 10.9(L) 11.7 - 15.5 g/dL [facility] Oxyhemoglobin, Coox 37.3 % [facility] Carboxyhemoglo bin, Coox 0.3 % [facility] Comment: Nonsmokers: 0.5-1.5% COHB Smokers: Variable, but usually less than 10% Toxic: 20-30% COHB Lethal: Greater than 60% COHB Methemoglobin, Coox 0.5 <=1.5 % [facility] Source Coox Mixed Venous [facility] Blood 05/12/2023 1:14 AM EDT 05/12/2023 1:14 AM EDT Radha Hollins MD POINT OF CARE TEST ORDERABLES [facility] [place] [address] * (ABNORMAL) BLOOD GAS 2 ARTERIAL (05/12/2023 1:06 AM EDT) pH, Arterial 7.34(L) 7.35 - 7.45 [facility] PCO2, Arterial 30(L) 35 - 45 mmHg [facility] PO2, Arterial 81(L) 85 - 104 mmHg [facility] Bicarbonate, Arterial 15.7(L) 20.0 - 26.0 mmol/L [facility] Base Excess, Arterial -10.1(L) -3.0 - 3.0 mmol/L [facility] Hgb Blood Gas 11.0(L) 11.7 - 15.5 g/dL [facility] Oxyhemoglobin, Arterial 92.3(L) 94.0 - 97.0 % [facility] Carboxyhemoglob in, Arterial 0.2 % [facility] Comment: Nonsmokers: 0.5-1.5% COHB Smokers: Variable, but usually less than 10% Toxic: 20-30% COHB Lethal: Greater than 60% COHB Methemoglobin, Arterial 0.6 <=1.5 % [facility] Na Whole Blood 131(L) 135 - 145 mmol/L [facility] K Whole Blood 4.2 3.5 - 5.0 mmol/L [facility] Comment: Please note: Patients with WBC >100,000 may have falsely elevated Potassium levels. Contact the Clinical Chemistry Laboratory if there are any questions. ICa Whole Blood 1.13(L) 1.15 - 1.33 mmol/L [facility] Comment: Note: ??Total bilirubin higher than 20 mg/dL may lead to falsely low ionized calcium. CL Whole Blood 99 98 - 107 mmol/L [facility] Gluc Whole Bld 132 65 - 199 mg/dL [facility] Comment:Diabetes: >=200 mg/d L plus symptoms. Lactate WB 2.7(H) 0.5 - 2.2 mmol/L [facility] Flow Art 5.0 LPM [facility] Blood 05/12/2023 1:06 AM EDT 05/12/2023 1:06 AM EDT Radha Hollins MD POINT OF CARE TEST ORDERABLES [facility] [place] [address] * (ABNORMAL) Differential, Automated (05/12/2023 1:05 AM EDT) Neutrophil % 83.3 % [facility] Neutrophil Absolute 7.49(H) 1.70 - 6.10 x10(3)/mc L [facility] Lymph % 7.1 % [facility] Lymphocytes Abs 0.6(L) 0.9 - 3.2 x10(3)/mc L [facility] Monocyte % 8.9 % [facility] Monocyte Abs 0.8 0.3 - 0.9 x10(3)/mc L [facility] Eos % 0.0 % [facility] Eosinophils Abs 0.0 0.0 - 0.4 x10(3)/mc L [facility] Basophil % 0.1 % [facility] Baso Absolute 0.0 0.0 - 0.1 x10(3)/mc L [facility] Immature Gran % 0.60 % [facility] Comment: Immature granulocytes(IG's)percentage and absolute count will include metamyelocytes, myelocytes, and promyelocytes. Blood smears from CBCs yielding IG's will be scanned manually for concordance. If this scan disagrees with the automated IG or if promyelocytes are noted, a manual differential will be performed. Immature Gran Absolute 0.05(H) 0.00 - 0.04 x10(3)/mc L [facility] Blood 05/12/2023 1:05 AM EDT 05/12/2023 1:15 AM EDT Narrative Resulting Agency Comment Spec In Lab Gianni Fletcher MD HEMATOLOGY ORDERABLE S [facility] [place] [address] * (ABNORMAL) Hemogram (05/12/2023 1:05 AM EDT) White Blood Cell 9.0 4.0 - 9.5 x10(3)/mc L [facility] Red Blood Cell 3.01(L) 4.00 - 5.21 x10(6)/mc L [facility] Hemoglobin 9.8(L) 11.7 - 15.5 g/dL [facility] Hematocrit 28.7(L) 35.7 - 45.8 % [facility] Mean Cell Volume 95.3(H) 82.6 - 94.4 fL [facility] Mean Cell Hemoglobin 32.6(H) 27.1 - 32.0 pg [facility] Mean Cell Hemoglobin Concentration 34.1 31.7 - 35.0 g/dL [facility] Platelet 186 145 - 357 x10(3)/mc L [facility] RDW Standard Deviation 43.7 37.0 - 46.0 fL [facility] RDW coefficient of variation 12.7 11.5 - 14.1 % [facility] Mean Platelet Volume 10.3 7.6 - 12.9 fL [facility] NRBC% auto 0.0 % [facility] NRBC Absolute 0.000 0.000 - 0.000 x10(3)/ L [facility] Blood 05/12/2023 1:05 AM EDT 05/12/2023 1:15 AM EDT Narrative Resulting Agency Comment Spec In Lab Gianni Fletcher MD HEMATOLOGY ORDERABLE S [facility] [place] [address] * (ABNORMAL) Comprehensive metabolic panel (non-fasting) (05/12/2023 1:05 AM EDT) Glucose 141 65 - 199 mg/dL [facility] Comment:Diabetes: >=200 mg/d L plus symptoms Blood Urea Nitrogen 63(H) 8 - 18 mg/dL [facility] Creatinine 1.86(H) 0.70 - 1.20 mg/dL [facility] Sodium 131(L) 135 - 145 mmol/L [facility] Potassium 4.4 3.5 - 5.0 mmol/L [facility] Comment: Please note: ??Patients with WBC >100,000 may have falsely elevated Potassium levels. ??For accurate Potassium quantification in these patients send serum separator tube (gold top) for subsequent determinations. ??Contact the Clinical Chemistry Laboratory if there are any questions. Chloride 96(L) 98 - 107 mmol/L [facility] Carbon Dioxide 14(L) 22 - 31 mmol/L [facility] Anion Gap 21(H) 5 - 15 mmol/L [facility] Calcium 9.0 8.5 - 10.5 mg/dL [facility] Protein, Total 6.6 6.1 - 8.0 g/dL [facility] Albumin 3.9 3.2 - 5.2 g/dL [facility] Aspartate Aminotransferase 1,227(H) 0 - 30 unit/L [facility] Alanine Aminotransferase 1,097(H) 0 - 30 unit/L [facility] Alkaline Phosphatase 108(H) 35 - 105 unit/L [facility] Bilirubin, Total 1.0 0.2 - 1.3 mg/dL [facility] Est Glomerular Filtration Rate 29(L) >=60 mL/min/1. 73 m?? [facility] Comment: This patient's estimated GFR was [...] Radha Hollins MD CHEMISTRY ORDERABL ES [facility] [place] [address] * XR Chest One View (05/12/2023 1:00 [...] have questions please contact the health healthcare architect that requested your imaging first. ? Narrative [...] who have questions please contactthe health healthcare architect that requested your imaging first. Radha Hollins MD IMG DX ORDERABLES * (ABNORMAL) Coox2 (05/12/2023 12:30 AM EDT) pO2, Coox 22 mmHg [facility] Hgb Blood Gas 10.9(L) 11.7 - 15.5 g/dL [facility] Oxyhemoglobin, Coox 25.1 % [facility] Carboxyhemoglo bin, Coox 0.3 % [facility] Comment: Nonsmokers: 0.5-1.5% COHB Smokers: Variable, but usually less than 10% Toxic: 20-30% COHB Lethal: Greater than 60% COHB Methemoglobin, Coox 1.4 <=1.5 % [facility] Source Coox Mixed Venous [facility] Blood 05/12/2023 12:3 0 AM EDT 05/12/2023 12:30 AM EDT Radha Hollins MD POINT OF CARE TEST ORDERABLES [facility] [place] [address] * XR Chest One View (05/11/2023 11:45 [...] have questions please contact the health healthcare architect that requested your imaging first. ? Narrative [...] who have questions please contactthe health healthcare architect that requested your imaging first. Radha Hollins MD IMG DX ORDERABLES * (ABNORMAL) Lactate, whole blood, send to lab ([facility]) (05/11/2023 7:40 PM EDT) Lactate WB 4.8(Critic al) 0.5 - 2.2 mmol/L [facility] Comment:Called by: NIKI, Read back by: Magdalena Baires, Date/Time:05/11/23 19:54. Blood 05/11/2023 7:40 PM EDT 05/11/2023 7:49 PM EDT Narrative Resulting Agency Comment Spec In Lab Radha Hollins MD CHEMISTRY ORDERABL ES Performing Organization Address [facility] Co de Phone Number [facility] [place] [address] * Urine culture (05/11/2023 7:22 PM EDT) Urine Culture 50,000-99,000 cfu/ml Normal mucosal herman Susceptibilit y testing not routinely performed for Coagulase Negative Staphylococcu s species and other Gram Positive organisms from urine. [facility] Clean Catch Urine 05/11/2023 7:22 PM EDT 05/11/2023 8:50 PM EDT Narrative Resulting Agency Comment Spec In Lab Brody Dale Eusebio OSBORN MICROBIOLOGY - GENE RAL ORDERABLES Performing Organization Address [facility] de Phone Number [facility] [place] [address] * (ABNORMAL) Urinalysis Microscopic Exam (05/11/2023 7:22 PM EDT) RBC, Urine 2 0 - 4 /HPF [facility] WBC, Urine >100(H) 0 - 5 /HPF [facility] Bacteria, Urine Occasional (A) None /HPF [facility] Squamous Epithelial Cells Raw Data, Urine 5(H) <=4 /HPF [facility] Hyaline Casts, Urine 3(H) 0 - 2 /LPF [facility] Clean Catch Urine 05/11/2023 7:22 PM EDT 05/11/2023 7:31 PM EDT Narrative Resulting Agency Comment Spec In Lab Brody Kaplan APRN URINE ORDERABLES Performing Organization Address [facility] Co de Phone Number [facility] [place] [address] * (ABNORMAL) Urinalysis with reflex Culture (05/11/2023 7:22 PM EDT) Glucose, Urine Dipstick Negative Negative mg/dL [facility] Protein, Urine Dipstick Trace(A) Negative mg/dL [facility] Bilirubin, Urine Dipstick Negative Negative mg/dL [facility] Comment: Clinical correlation required for positive Urine Bilirubin results as false positive may occur with some drugs and drug related products. If a false positive is suspected a serum total bilirubin should be considered if clinically indicated. Urobilinogen, Urine Dipstick Normal Normal mg/dL [facility] pH, Urn (dipstick) 5.0 5.0 - 8.0 [facility] Blood, Urine Dipstick Trace(A) Negative mg/dL [facility] Ketone, Urine Dipstick Negative Negative mg/dL [facility] Nitrite, Urine Dipstick Negative Negative [facility] Leukocytes, Urine Dipstick Moderate(A) Negative mcL [facility] Appearance, Urine Dipstick Cloudy(A) Clear [facility] Specific Eucha Urine Automated >=1.030(A) 1.005 - 1.030 [facility] Color, Urine Dipstick Yellow Yellow [facility] Reflex to Culture Yes [facility] Clean Catch Urine 05/11/2023 7:22 PM EDT 05/11/2023 7:31 PM EDT Narrative Resulting Agency Comment Spec In Lab Brody Kaplan APRN URINE ORDERABLES Performing Organization Address [facility] Co de Phone Number [facility] [place] [address] * (ABNORMAL) pro-Brain Natriuretic Peptide (05/11/2023 7:11 PM EDT) NT-proBNP >35,000(H) <=124 pg/mL [facility] Blood 05/11/2023 7:11 PM EDT 05/11/2023 7:26 PM EDT Narrative Resulting Agency Comment Spec In Lab Radha Hollins MD CHEMISTRY ORDERABL ES Performing Organization Address City/[facility] Co de Phone Number [facility] [place] [address] * (ABNORMAL) Lactate, whole blood, send to lab ([facility]) (05/11/2023 2:47 PM EDT) Lactate WB 2.9(H) 0.5 - 2.2 mmol/L [facility] Blood 05/11/2023 2:47 PM EDT 05/11/2023 2:53 PM EDT Narrative Resulting Agency Comment Spec In Lab Juan Luis Gonzalez MD CHEMISTRY ORDERABLES Performing Organization Address City/State/[facility] Co de Phone Number [facility] [place] [address] * (ABNORMAL) CT Angiogram Abdomen & Pelvis [...] have questions please contact the health healthcare architect that requested your imaging first. ? Narrative [...] have questions please contact the health healthcare architect that requested your imaging first. ? Electronically signed by: Cullen Narayanan MD, [facility] ([phone]), at 05/11/2023 4:37 PM Narrative 05/11/2023 4:37 [...] 610 mm2 Circumference: 88 mm Calcification: Mild Fqpslco-nl-[id number] height: Left: 6.2 mm Right: 5.8 mm THORACIC AORTA Description: Normal course and caliber. ??Mild diffuse atherosclerotic changes. No acute aortopathy noted. Plug Wirer dimensions: Aortic root: 27.6 mm Max ascending aorta: 30.5 mm x 27.7 mm Suggested fluoroscopic angulation based on line extending through the nadirs of the three sinuses of Valsalva, set equidistant: ?? INDONESIAN ??9 degrees; cranial 7 degrees MITRAL: Mitral [...] 610 mm2 Circumference: 88 mm Calcification: Mild Fzteqah-jd-[id number] height: Left: 6.2 mm Right: 5.8 mm THORACIC AORTA Description: Normal course and caliber. Mild diffuse atheroscleroticchanges. No acute aortopathy noted. Plug Wirer dimensions: Aortic root: 27.6 mm Max ascending aorta: 30.5 mm x 27.7 mm Suggested fluoroscopic angulation based on line extending through thenadirs of the three sinuses of Valsalva, set equidistant: INDONESIAN 9 degrees; cranial 7 degrees MITRAL: Mitral [...] who have questions please contactthe health healthcare architect that requested your imaging first. Electronically signed by: Cullen Narayanan MD, [facility]([phone]), at 05/11/2023 4:37 PM Antelmo Sharma MD IMG CT ORDERABLES * (ABNORMAL) Lactate, whole blood, send to lab ([facility]) (05/11/2023 9:29 AM EDT) Lactate WB 3.1(H) 0.5 - 2.2 mmol/L [facility] Blood 05/11/2023 9:29 AM EDT 05/11/2023 9:38 AM EDT Narrative Resulting Agency Comment Spec In Lab Juan Luis Gonzalez MD CHEMISTRY ORDERABLES [facility] [place] [address] * (ABNORMAL) Differential, Automated (05/11/2023 4:42 AM EDT) Neutrophil % 78.1 % [facility] Neutrophil Absolute 5.46 1.70 - 6.10 x10(3)/mc L [facility] Lymph % 10.6 % [facility] Lymphocytes Abs 0.7(L) 0.9 - 3.2 x10(3)/mc L [facility] Monocyte % 9.6 % [facility] Monocyte Abs 0.7 0.3 - 0.9 x10(3)/mc L [facility] Eos % 0.0 % [facility] Eosinophils Abs 0.0 0.0 - 0.4 x10(3)/mc L [facility] Basophil % 0.4 % [facility] Baso Absolute 0.0 0.0 - 0.1 x10(3)/mc L [facility] Immature Gran % 1.30 % [facility] Comment: Immature granulocytes(IG's)percentage and absolute count will include metamyelocytes, myelocytes, and promyelocytes. Blood smears from CBCs yielding IG's will be scanned manually for concordance. If this scan disagrees with the automated IG or if promyelocytes are noted, a manual differential will be performed. Immature Gran Absolute 0.09(H) 0.00 - 0.04 x10(3)/mc L [facility] Blood 05/11/2023 4:42 AM EDT 05/11/2023 4:49 AM EDT Narrative Resulting Agency Comment Spec In Lab Klaudia Reid MD HEMATOLOGY OR DERABLES [facility] [place] [address] * (ABNORMAL) Hemogram (05/11/2023 4:42 AM EDT) White Blood Cell 7.0 4.0 - 9.5 x10(3)/mc L [facility] Red Blood Cell 3.44(L) 4.00 - 5.21 x10(6)/mc L [facility] Hemoglobin 11.1(L) 11.7 - 15.5 g/dL [facility] Hematocrit 32.7(L) 35.7 - 45.8 % [facility] Mean Cell Volume 95.1(H) 82.6 - 94.4 fL [facility] Mean Cell Hemoglobin 32.3(H) 27.1 - 32.0 pg [facility] Mean Cell Hemoglobin Concentration 33.9 31.7 - 35.0 g/dL [facility] Platelet 165 145 - 357 x10(3)/mc L [facility] RDW Standard Deviation 43.1 37.0 - 46.0 fL [facility] RDW coefficient of variation 12.7 11.5 - 14.1 % [facility] Mean Platelet Volume 10.1 7.6 - 12.9 fL [facility] NRBC% auto 0.0 % [facility] NRBC Absolute 0.000 0.000 - 0.000 x10(3)/mc L [facility] Blood 05/11/2023 4:42 AM EDT 05/11/2023 4:49 AM EDT Narrative Resulting Agency Comment Spec In Lab Klaudia Reid MD HEMATOLOGY OR DERABLES Performing Organization Address [facility] Co de Phone Number [facility] [place] [address] * Heparin (unfractionated) Level (05/11/2023 4:42 AM EDT) UF Heparin 0.46 IU/mL [facility] Comment: Heparin (anti-Xa) [...] MD HEMATOLOGY ORDERAB LES Performing Organization Address [facility] Co de Phone Number [facility] [place] [address] * (ABNORMAL) Comprehensive metabolic panel (non-fasting) (05/11/2023 4:42 AM EDT) Pathologist [facility] Glucose 143 65 - 199 mg/dL [facility] Comment:Diabetes: >=200 mg/d L plus symptoms Blood Urea Nitrogen 42(H) 8 - 18 mg/dL [facility] Creatinine 1.24(H) 0.70 - 1.20 mg/dL [facility] Sodium 134(L) 135 - 145 mmol/L [facility] Potassium 4.6 3.5 - 5.0 mmol/L [facility] Comment: Please note: ??Patients with WBC >100,000 may have falsely elevated Potassium levels. ??For accurate Potassium quantification in these patients send serum separator tube (gold top) for subsequent determinations. ??Contact the Clinical Chemistry Laboratory if there are any questions. Chloride 99 98 - 107 mmol/L [facility] Carbon Dioxide 14(L) 22 - 31 mmol/L [facility] Anion Gap 21(H) 5 - 15 mmol/L [facility] Calcium 9.6 8.5 - 10.5 mg/dL [facility] Protein, Total 7.2 6.1 - 8.0 g/dL [facility] Albumin 3.7 3.2 - 5.2 g/dL [facility] Aspartate Aminotransferase 144(H) 0 - 30 unit/L [facility] Comment:result rechecked-ssc Alanine Aminotransferase 130(H) 0 - 30 unit/L [facility] Comment:result rechecked-ssc Alkaline Phosphatase 72 35 - 105 unit/L [facility] Bilirubin, Total 0.8 0.2 - 1.3 mg/dL [facility] Est Glomerular Filtration Rate 48(L) >=60 mL/min/1. 73 m?? [facility] Comment: This patient's estimated GFR was [...] Radha Hollins MD CHEMISTRY ORDERABL ES [facility] [place] [address] * EKG 12 Lead (05/10/2023 1:16 PM EDT) Ventricular rate 118 BPM MUSE SYSTEM Atrial Rate 118 BPM MUSE SYSTEM P-R Interval 152 ms MUSE SYSTEM QRS Duration 104 ms MUSE SYSTEM Q-T Interval 316 ms MUSE SYSTEM QTC Calculated (Bezet) 442 ms MUSE SYSTEM Calculated P [place] 29 degrees MUSE SYSTEM Calculated R [place] 18 degrees MUSE SYSTEM Calculated T [place] -173 degrees MUSE SYSTEM INTERPRETATION Sinus tachycardia Minimal voltage criteria for LVH, may be normal variant ( [place] product ) Septal infarct , age undetermined ST & T wave abnormality, consider lateral ischemia Abnormal ECG When compared with ECG of 10-MAY-2023 07:59, Fusion complexes are no longer Present Premature ventricular complexes are no longer Present ST no longer depressed in Anterior leads Confirmed by MD Villareal Danette ([id number]) on 05/10/2023 8:47:46 PM MUSE SYSTEM 05/10/2023 1:16 PM EDT 05/10/2023 8:47 PM EDT Juan Luis Gonzalez MD ECG ORDERABLES MUSE SYSTEM * Lactate, whole blood, send to lab ([facility]) (05/10/2023 11:52 AM EDT) Lactate WB 1.8 0.5 - 2.2 mmol/L [facility] Blood 05/10/2023 11:5 2 AM EDT 05/10/2023 12:13 PM EDT Narrative Resulting Agency Comment Spec In Lab Juan Luis Gonzalez MD CHEMISTRY ORDERABLES [facility] [place] [address] * XR Chest One View (05/10/2023 11:16 [...] have questions please contact the health healthcare architect that requested your imaging first. ? Electronically signed by: ALIX RUVALCABA MD, [facility] ([phone]), at 05/10/2023 1:25 PM Narrative 05/10/2023 1:25 [...] who have questions please contactthe health healthcare architect that requested your imaging first. Juan Luis Gonzalez MD IMG DX ORDERABLES * EKG 12 Lead (05/10/2023 7:59 AM EDT) Ventricular rate 115 BPM MUSE SYSTEM Atrial Rate 115 BPM MUSE SYSTEM P-R Interval 142 ms MUSE SYSTEM QRS Duration 102 ms MUSE SYSTEM Q-T Interval 322 ms MUSE SYSTEM QTC Calculated (Bezet) 445 ms MUSE SYSTEM Calculated P [place] 36 degrees MUSE SYSTEM Calculated R [place] 28 degrees MUSE SYSTEM Calculated T [place] -119 degrees MUSE SYSTEM INTERPRETATION Sinus tachycardia [...] Differential, Automated (05/10/2023 2:28 AM EDT) Pathologist [facility] Neutrophil % 77.1 % [facility] Neutrophil Absolute 4.01 1.70 - 6.10 x10(3)/mc L [facility] Lymph % 14.0 % [facility] Lymphocytes Abs 0.7(L) 0.9 - 3.2 x10(3)/mc L [facility] Monocyte % 7.7 % [facility] Monocyte Abs 0.4 0.3 - 0.9 x10(3)/mc L [facility] Eos % 0.4 % [facility] Eosinophils Abs 0.0 0.0 - 0.4 x10(3)/mc L [facility] Basophil % 0.4 % [facility] Baso Absolute 0.0 0.0 - 0.1 x10(3)/mc L [facility] Immature Gran % 0.40 % [facility] Comment: Immature granulocytes(IG's)percentage and absolute count will include metamyelocytes, myelocytes, and promyelocytes. Blood smears from CBCs yielding IG's will be scanned manually for concordance. If this scan disagrees with the automated IG or if promyelocytes are noted, a manual differential will be performed. Immature Gran Absolute 0.02 0.00 - 0.04 x10(3)/mc L [facility] Blood 05/10/2023 2:28 AM EDT 05/10/2023 2:57 AM EDT Narrative Resulting Agency Comment Spec In Lab Klaudia Reid MD HEMATOLOGY OR DERABLES [facility] [place] [address] * (ABNORMAL) Hemogram (05/10/2023 2:28 AM EDT) White Blood Cell 5.2 4.0 - 9.5 x10(3)/mc L [facility] Red Blood Cell 3.11(L) 4.00 - 5.21 x10(6)/mc L [facility] Hemoglobin 10.2(L) 11.7 - 15.5 g/dL [facility] Hematocrit 30.2(L) 35.7 - 45.8 % [facility] Mean Cell Volume 97.1(H) 82.6 - 94.4 fL [facility] Mean Cell Hemoglobin 32.8(H) 27.1 - 32.0 pg [facility] Mean Cell Hemoglobin Concentration 33.8 31.7 - 35.0 g/dL [facility] Platelet 151 145 - 357 x10(3)/mc L [facility] RDW Standard Deviation 44.9 37.0 - 46.0 fL [facility] RDW coefficient of variation 12.8 11.5 - 14.1 % [facility] Mean Platelet Volume 9.8 7.6 - 12.9 fL [facility] NRBC% auto 0.0 % [facility] NRBC Absolute 0.000 0.000 - 0.000 x10(3)/mc L [facility] Blood 05/10/2023 2:28 AM EDT 05/10/2023 2:57 AM EDT Narrative Resulting Agency Comment Spec In Lab Klaudia Reid MD HEMATOLOGY OR DERABLES [facility] [address] [place] [address] * (ABNORMAL) Comprehensive metabolic panel (non-fasting) (05/10/2023 2:28 AM EDT) Glucose 100 65 - 199 mg/dL [facility] Comment:Diabetes: >=200 mg/d L plus symptoms Blood Urea Nitrogen 30(H) 8 - 18 mg/dL [facility] Creatinine 0.90 0.70 - 1.20 mg/dL [facility] Sodium 134(L) 135 - 145 mmol/L [facility] Potassium 4.1 3.5 - 5.0 mmol/L [facility] Comment: Please note: ??Patients with WBC >100,000 may have falsely elevated Potassium levels. ??For accurate Potassium quantification in these patients send serum separator tube (gold top) for subsequent determinations. ??Contact the Clinical Chemistry Laboratory if there are any questions. Chloride 102 98 - 107 mmol/L [facility] Carbon Dioxide 20(L) 22 - 31 mmol/L [facility] Anion Gap 12 5 - 15 mmol/L [facility] Calcium 9.3 8.5 - 10.5 mg/dL [facility] Protein, Total 6.4 6.1 - 8.0 g/dL [facility] Albumin 3.7 3.2 - 5.2 g/dL [facility] Aspartate Aminotransferase 24 0 - 30 unit/L [facility] Alanine Aminotransferase 14 0 - 30 unit/L [facility] Alkaline Phosphatase 70 35 - 105 unit/L [facility] Bilirubin, Total 0.5 0.2 - 1.3 mg/dL [facility] Est Glomerular Filtration Rate 70 >=60 mL/min/1. 73 m?? [facility] Comment: This patient's estimated GFR was [...] ES Performing Organization Address [facility] [place] [address] * Heparin (unfractionated) Level (05/10/2023 2:28 AM EDT) UF Heparin 0.37 IU/mL [facility] ITAL [facility]OR[facility] Comment: Heparin (anti-Xa) [...] MD HEMATOLOGY ORDERAB LES Performing Organization Address [facility]/ZIP Co de Phone Number [facility] [place] [address] * (ABNORMAL) Differential, Automated (05/09/2023 4:00 AM EDT) Neutrophil % 81.7 % [facility] Neutrophil Absolute 5.26 1.70 - 6.10 x10(3)/mc L [facility] Lymph % 10.7 % [facility] HOSPI [facility]E [facility] Lymphocytes Abs 0.7(L) 0.9 - 3.2 x10(3)/mc L [facility] Monocyte % 6.5 % [facility] Monocyte Abs 0.4 0.3 - 0.9 x10(3)/ L [facility] Eos % 0.5 % [facility] Eosinophils Abs 0.0 0.0 - 0.4 x10(3)/mc L [facility] Basophil % 0.3 % [facility] Baso Absolute 0.0 0.0 - 0.1 x10(3)/ L [facility] Immature Gran % 0.30 % [facility] Comment: Immature granulocytes(IG's)percentage and absolute count will include metamyelocytes, myelocytes, and promyelocytes. Blood smears from CBCs yielding IG's will be scanned manually for concordance. If this scan disagrees with the automated IG or if promyelocytes are noted, a manual differential will be performed. Immature Gran Absolute 0.02 0.00 - 0.04 x10(3)/ L [facility] Blood 05/09/2023 4:00 AM EDT 05/09/2023 4:19 AM EDT Narrative Resulting Agency Comment Spec In Lab Klaudia Reid MD HEMATOLOGY OR DERABLES Performing Organization Address City/State/[facility] Co de Phone Number [facility] [place] [address] * (ABNORMAL) Hemogram (05/09/2023 4:00 AM EDT) White Blood Cell 6.4 4.0 - 9.5 x10(3)/mc L [facility] Red Blood Cell 3.15(L) 4.00 - 5.21 x10(6)/mc L [facility] Hemoglobin 10.2(L) 11.7 - 15.5 g/dL [facility] Hematocrit 30.3(L) 35.7 - 45.8 % [facility] Mean Cell Volume 96.2(H) 82.6 - 94.4 fL [facility] Mean Cell Hemoglobin 32.4(H) 27.1 - 32.0 pg [facility] Mean Cell Hemoglobin Concentration 33.7 31.7 - 35.0 g/dL [facility] Platelet 151 145 - 357 x10(3)/mc L [facility] RDW Standard Deviation 44.7 37.0 - 46.0 fL [facility] RDW coefficient of variation 12.8 11.5 - 14.1 % [facility] Mean Platelet Volume 9.4 7.6 - 12.9 fL [facility] NRBC% auto 0.0 % [facility] NRBC Absolute 0.000 0.000 - 0.000 x10(3)/mc L [facility] Blood 05/09/2023 4:00 AM EDT 05/09/2023 4:19 AM EDT Narrative Resulting Agency Comment Spec In Lab Klaudia Reid MD HEMATOLOGY OR DERABLES [facility] [place] [address] * Heparin (unfractionated) Level (05/09/2023 4:00 AM EDT) UF Heparin 0.47 IU/mL [facility] Comment: Heparin (anti-Xa) levels should be [...] Radha Hollins MD HEMATOLOGY ORDERAB LES [facility] [place] [address] * (ABNORMAL) Comprehensive metabolic panel (non-fasting) (05/09/2023 4:00 AM EDT) Glucose 108 65 - 199 mg/dL [facility] Comment:Diabetes: >=200 mg/d L plus symptoms Blood Urea Nitrogen 31(H) 8 - 18 mg/dL [facility] Creatinine 1.03 0.70 - 1.20 mg/dL [facility] Sodium 137 135 - 145 mmol/L [facility] Potassium 4.4 3.5 - 5.0 mmol/L [facility] Comment: Please note: ??Patients with WBC >100,000 may have falsely elevated Potassium levels. ??For accurate Potassium quantification in these patients send serum separator tube (gold top) for subsequent determinations. ??Contact the Clinical Chemistry Laboratory if there are any questions. Chloride 102 98 - 107 mmol/L [facility] Carbon Dioxide 20(L) 22 - 31 mmol/L [facility] Anion Gap 15 5 - 15 mmol/L [facility] Calcium 9.3 8.5 - 10.5 mg/dL [facility] Protein, Total 6.6 6.1 - 8.0 g/dL [facility] Albumin 3.8 3.2 - 5.2 g/dL [facility] Aspartate Aminotransferase 32(H) 0 - 30 unit/L [facility] Alanine Aminotransferase 18 0 - 30 unit/L [facility] Alkaline Phosphatase 78 35 - 105 unit/L [facility] Bilirubin, Total 0.5 0.2 - 1.3 mg/dL [facility] Est Glomerular Filtration Rate 60 >=60 mL/min/1. 73 m?? [facility] Comment: This patient's estimated GFR was [...] ES Performing Organization Address [facility]/ZIP Co de Phone Number [facility] [place] [address] * (ABNORMAL) pro-Brain Natriuretic Peptide (05/08/2023 4:00 PM EDT) NT-proBNP 25,503(H) <=124 pg/mL [facility] Blood Venous Draw / Unknown 05/08/2023 4:00 PM EDT 05/08/2023 4:25 PM EDT Narrative Resulting Agency Comment Spec In Lab Juan Luis Gonzalez MD CHEMISTRY ORDERABLES Performing Organization Address [facility] Co de Phone Number [facility] [place] [address] * Magnesium (05/08/2023 4:00 PM EDT) Magnesium 0.82 0.69 - 1.07 mmol/L [facility] Blood 05/08/2023 4:00 PM EDT 05/08/2023 4:06 PM EDT Narrative Resulting Agency Comment Spec In Lab Enrique Chua MD CHEMISTRY ORDERABLES Performing Organization Address [facility] Co de Phone Number [facility] [place] [address] * Potassium (05/08/2023 4:00 PM EDT) Potassium 3.9 3.5 - 5.0 mmol/L [facility] Comment: Please note: ??Patients with WBC [...] MD CHEMISTRY ORDERABL ES Performing Organization Address [facility] de Phone Number [facility] [place] [address] * Heparin (unfractionated) Level (05/08/2023 4:00 PM EDT) Pathologist [facility] UF Heparin 0.43 IU/mL [facility] Comment: Heparin (anti-Xa) [...] MD HEMATOLOGY ORDERAB LES Performing Organization Address [facility] Co de Phone Number [facility] [place] [address] * EKG 12 Lead (05/08/2023 3:51 PM EDT) Ventricular rate 98 BPM MUSE SYSTEM Atrial Rate 98 BPM MUSE SYSTEM P-R Interval 150 ms MUSE SYSTEM QRS Duration 102 ms MUSE SYSTEM Q-T Interval 358 ms MUSE SYSTEM QTC Calculated (Bezet) 457 ms MUSE SYSTEM Calculated P [place] 38 degrees MUSE SYSTEM Calculated R [place] 48 degrees MUSE SYSTEM Calculated T [place] -112 degrees MUSE SYSTEM INTERPRETATION Sinus rhythm with frequent and consecutive Premature ventricular and fusion complexes Septal infarct , age undetermined ST & T wave abnormality, consider anterolateral ischemia Abnormal ECG When compared with ECG of 09-NOV-2022 11:17, T wave inversion now evident in Anterolateral leads Confirmed by MD Harshil, Enrique Bell ([id number]) on 05/10/2023 8:11:46 AM MUSE SYSTEM 05/08/2023 3:51 PM EDT 05/10/2023 8:11 AM EDT Radha Hollins MD ECG ORDERABLES MUSE SYSTEM * (ABNORMAL) Differential, Automated (05/08/2023 11:38 AM EDT) Neutrophil % 71.3 % [facility] Neutrophil Absolute 2.91 1.70 - 6.10 x10(3)/mc L [facility] Lymph % 19.1 % [facility] Lymphocytes Abs 0.8(L) 0.9 - 3.2 x10(3)/mc L [facility] Monocyte % 9.0 % [facility] Monocyte Abs 0.4 0.3 - 0.9 x10(3)/mc L [facility] Eos % 0.2 % [facility] Eosinophils Abs 0.0 0.0 - 0.4 x10(3)/mc L [facility] Basophil % 0.2 % [facility] Baso Absolute 0.0 0.0 - 0.1 x10(3)/mc L [facility] Immature Gran % 0.20 % [facility] Comment: Immature granulocytes(IG's)percentage and absolute count will include metamyelocytes, myelocytes, and promyelocytes. Blood smears from CBCs yielding IG's will be scanned manually for concordance. If this scan disagrees with the automated IG or if promyelocytes are noted, a manual differential will be performed. Immature Gran Absolute 0.01 0.00 - 0.04 x10(3)/mc L [facility] Blood 05/08/2023 11:3 8 AM EDT 05/08/2023 11:44 AM EDT Narrative Resulting Agency Comment Spec In Lab Lincoln Sal MD HEMATOLOGY ORDERA BLES [facility] [place] [address] * (ABNORMAL) Hemogram (05/08/2023 11:38 AM EDT) White Blood Cell 4.1 4.0 - 9.5 x10(3)/mc L [facility] Red Blood Cell 3.05(L) 4.00 - 5.21 x10(6)/mc L [facility] Hemoglobin 10.2(L) 11.7 - 15.5 g/dL [facility] Hematocrit 29.6(L) 35.7 - 45.8 % [facility] Mean Cell Volume 97.0(H) 82.6 - 94.4 fL [facility] Mean Cell Hemoglobin 33.4(H) 27.1 - 32.0 pg [facility] Mean Cell Hemoglobin Concentration 34.5 31.7 - 35.0 g/dL [facility] Platelet 136(L) 145 - 357 x10(3)/mc L [facility] RDW Standard Deviation 44.3 37.0 - 46.0 fL [facility] RDW coefficient of variation 12.6 11.5 - 14.1 % [facility] Mean Platelet Volume 9.4 7.6 - 12.9 fL [facility] NRBC% auto 0.0 % [facility] NRBC Absolute 0.000 0.000 - 0.000 x10(3)/ L [facility] Blood 05/08/2023 11:3 8 AM EDT 05/08/2023 11:44 AM EDT Narrative Resulting Agency Comment Spec In Lab Lincoln Sal MD HEMATOLOGY ORDERA BLES [facility] [place] [address] * TSH (05/08/2023 11:38 AM EDT) Thyroid Stimulating Hormone 1.27 0.27 - 4.20 mcIU/mL [facility] Comment: Reference Interval (mcIU/mL): Females: ??First Trimester: 0.23-3.88 ??Second Trimester: 0.22-3.90 ??Third Trimester: 0.44-4.66 Blood 05/08/2023 11:3 8 AM EDT 05/08/2023 11:44 AM EDT Narrative Resulting Agency Comment Spec In Lab Enrique Chua MD CHEMISTRY ORDERABLES Performing Organization Address City/[facility]/ZIP Co de Phone Number [facility] [place] [address] * (ABNORMAL) Phosphorus (05/08/2023 11:38 AM EDT) Phosphorus 4.7(H) 2.5 - 4.5 mg/dL [facility] Blood 05/08/2023 11:3 8 AM EDT 05/08/2023 11:44 AM EDT Narrative Resulting Agency Comment Spec In Lab Enrique Chua MD CHEMISTRY ORDERABLES Performing Organization Address [facility] Co de Phone Number [facility] [place] [address] * Magnesium (05/08/2023 11:38 AM EDT) Magnesium 0.76 0.69 - 1.07 mmol/L [facility] Blood 05/08/2023 11:3 8 AM EDT 05/08/2023 11:44 AM EDT Narrative Resulting Agency Comment Spec In Lab Enrique Chua MD CHEMISTRY ORDERABLES Performing Organization Address [facility] Co de Phone Number [facility] [place] [address] * (ABNORMAL) Basic Metabolic Panel (non-fasting) (05/08/2023 11:38 AM EDT) Glucose 97 65 - 199 mg/dL [facility] Comment:Diabetes: >=200 mg/d L plus symptoms Blood Urea Nitrogen 27(H) 8 - 18 mg/dL [facility] Creatinine 1.02 0.70 - 1.20 mg/dL [facility] Sodium 139 135 - 145 mmol/L [facility] Potassium 4.2 3.5 - 5.0 mmol/L [facility] Comment: Please note: ??Patients with WBC >100,000 may have falsely elevated Potassium levels. ??For accurate Potassium quantification in these patients send serum separator tube (gold top) for subsequent determinations. ??Contact the Clinical Chemistry Laboratory if there are any questions. Chloride 105 98 - 107 mmol/L [facility] Carbon Dioxide 20(L) 22 - 31 mmol/L [facility] Anion Gap 14 5 - 15 mmol/L [facility] Calcium 9.4 8.5 - 10.5 mg/dL [facility] Est Glomerular Filtration Rate 60 >=60 mL/min/1. 73 m?? [facility] Comment: This patient's estimated GFR was [...] In Lab Enrique Chua MD CHEMISTRY ORDERABLES [facility] [address] * ECHO COMPLETE (05/08/2023 11:02 AM EDT) Pathologist [facility] EF 25 [employer] SYSTEM Anatomical Region Laterality Modality Cardiac Other 05/08/2023 10:0 3 AM EDT Narrative 05/08/2023 11:51 AM EDT ? Echocardiogram Report Name: PURNIMA THACKER ?Study Date: 05/08/2023 10:03 AMBP: 92/64 mmHg ? Patient Location: [facility]^CV29^A : 1955 ? Height: 155 cm ? Account: [id number] Age: 67 yrs ? Weight: 78 kg Gender: Female ?BSA: 1.8 m2 Ordering Physician: ENRIQUE CHUA Referring Physician: MARIO ALBERTO CHIN Performed By: CHUCKIE Canchola Reason For Study: SAVR Stenosis Exam Location: [facility]. Interpretation Summary -Left ventricle is [...] worsening stenosis. Mitral regurgitation is similar. Procedure Complete-00581. Satisfactory quality. There is normal sinus rhythm. [...] Study Date: :03 AMBP: 92/64 mmHg Patient Location:[facility]^CV29^A : 1955 Height: 155 cm Account: [id number] Age: 67 yrs Weight: 78 kg Gender: Female BSA: 1.8 m2 Ordering Physician: ENRIQUE CHUA Referring Physician: MARIO ALBERTO CHIN Performed By: CHUCKIE Canchola Reason For Study: SAVR Stenosis Exam Location: [facility]. Interpretation Summary -Left ventricle is [...] suggestsworsening stenosis. Mitral regurgitation is similar. Procedure Complete-[id number]. Satisfactory quality. There is normal sinus rhythm. 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 Mild coronary artery disease by [facility] 11/09/2022 Mixed connective tissue disease Other specified [...] ejection fraction Mild coronary artery disease by [facility] 11/09/2022 Stenosis of prosthetic aortic valve ([place] [...] dose on Wed05/12/23 at 1030, Until Discontinued, [place] teeth, Routine Given 05/12/2023 10:04 AM EDT [...] TKO rate, per [facility] flush protocol Rate/Dose Verify 05/13/2023 6:00 [...] 81 mg, Oral, DAILY, First dose on [place] 05/13/23 at 0900, Until Discontinued, Routine 0836 [...] Routine documented in this encounter Care Teams Framing Specialist Relationship Specialty Start Date End Date Magdalena Acosta MD [address] [place] [address] PCP - General Family Medicine 02/05/23 documented as of this encounter
--- OUTSIDE RECORDS SUMMARY | 2024-04-20 14:23 | XMS_ITS | Encounter Summary ---
Author Organization [facility] [place] [address] Care Team Providers Care Blackener Name Role Phone Magdalena Acosta MD Primary Care Provider [phone] Encounter Details Date Type Department Care Team [...] AM EDT Appointment Hematology [place] [address] 05/12/2024 10:00 AM EDT Office Visit Hematology [place] [phone] Markel Borjas MD [facility] HEMATOLOGY [place] [address] 03/01/2025 4:15 PM EDT Office Visit Dermatology at [place] [address] [place] [phone] Marek Bonilla MD [address] [place] [address] documented as of this encounter Visit Diagnoses Not on filedocumented in this encounter Care Teams Blackener Relationship Specialty Start Date End Date Magdalena Acosta MD [address] [place] [id number] PCP - General Family Medicine 02/05/23 documented as of this encounter
--- OUTSIDE RECORDS SUMMARY | 2024-04-20 14:24 | XMS_ITS | Encounter Summary ---
Author Organization Formerly [facility] [place] [address] Care Team Providers Care Magnet Maker Name Role Phone Magdalena Acosta MD Primary Care Provider [phone] Encounter Details Date Type Department Care Team [...] AM EDT Appointment Hematology [place] [address] 05/12/2024 10:00 AM EDT Office Visit Hematology [place] [address] Markel Borjas MD [facility] [address] HEMATOLOGY [place] [address] 03/01/2025 4:15 PM EDT Office Visit Dermatology at [place] [address] [place] [phone] Marek Bonilla MD [address] [facility] [place] [address] documented as of this encounter Visit Diagnoses Not on filedocumented in this encounter Care Teams Magnet Maker Relationship Specialty Start Date End Date Magdalena Acosta MD [address] [place] [address] PCP - General Family Medicine 02/05/23 documented as of this encounter
--- OUTSIDE RECORDS SUMMARY | 2024-04-20 14:24 | XMS_ITS | Encounter Summary ---
[place] [address] Care Team Providers Care Oxidized Finish Plater Name Role Phone Magdalena Acosta MD Primary Care Provider [phone] Reason for Visit * Reason Comments Skin Lesion Encounter Details Date Type Department Care Team (Late st Contact Info) Description 04/20/2023 10:00 AM EDT Office Visit Dermatology at [address] [address] Marek Bonilla MD [address] [facility] [place] [address] Seborrheic keratosis Social History Tobacco Use Types [...] cutaneous and ocular 3. Previously told by picker packer that she had corneal tears from her [...] AM EDT Appointment Hematology [place] [address] 05/12/2024 10:00 AM EDT Office Visit Hematology [place] [address] Markel Borjas MD [facility] [address] [place] [address] 03/01/2025 4:15 PM EDT Office Visit Dermatology at [address] [place] [address] Marek Bonilla MD [address] [facility] [place] [address] documented as of this encounter Visit Diagnoses Diagnosis Seborrheic keratosis Other seborrheic keratosis documented in this encounter Care Teams Oxidized Finish Plater Relationship Specialty Start Date End Date Magdalena Acosta MD [address] [place] [address] PCP - General Family Medicine 02/05/23 documented as of this encounter
--- OUTSIDE RECORDS SUMMARY | 2024-04-20 14:24 | XMS_ITS | Encounter Summary ---
Author Organization [facility] [place] [address] Care Team Providers Care Sys Dir Name Role Phone Magdalena Acosta MD Primary Care Provider [phone] Encounter Details Date Type Department Care Team (Latest Contact Info) Description 03/18/2023 2:30 PM EDT Laboratory Appointment Lab [place] [phone] Positive FRANCISCO (antinuclear antibody) Social History Tobacco [...] Appointment Hematology [place] [phone] 05/12/2024 10:00 AM EDT Office Visit Hematology [place] [phone] Markel Borjas MD [facility] [place] [address] 03/01/2025 4:15 PM EDT Office Visit Dermatology at [address] [address] Marek Bonilla MD [address] [facility], [place], [place] [phone] documented as of this encounter Procedures Procedure [...] Differential, Automated (03/18/2023 2:14 PM EDT) Pathologist [facility] Neutrophil % 71.2 % [facility] Neutrophil Absolute 2.26 1.70 - 6.10 x10(3)/mc L [facility] Lymph % 18.2 % [facility] Lymphocytes Abs 0.6(L) 0.9 - 3.2 x10(3)/ L [facility] Monocyte % 9.7 % [facility] Monocyte Abs 0.3 0.3 - 0.9 x10(3)/[facility] Eos % 0.3 % [facility] Eosinophils Abs 0.0 0.0 - 0.4 x10(3)/[facility] Basophil % 0.6 % [facility] Baso Absolute 0.0 0.0 - 0.1 x10(3)/[facility] Immature Gran % 0.00 % [facility] Comment: Immature granulocytes(IG's)percentage and absolute count will include metamyelocytes, myelocytes, and promyelocytes. Blood smears from CBCs yielding IG's will be scanned manually for concordance. If this scan disagrees with the automated IG or if promyelocytes are noted, a manual differential will be performed. Immature Gran Absolute 0.00 0.00 - 0.04 x10(3)/[facility] Blood 03/18/2023 2:14 PM EDT 03/18/2023 2:24 PM EDT Narrative Resulting Agency Comment Spec In Lab Magdalena Peralta MD HEMATOLOGY ORDERABLE S [facility] [place] [address] * (ABNORMAL) Hemogram (03/18/2023 2:14 PM EDT) White Blood Cell 3.2(L) 4.0 - 9.5 x10(3)/[facility] Red Blood Cell 3.44(L) 4.00 - 5.21 x10(6)/[facility] Hemoglobin 11.1(L) 11.7 - 15.5 g/dL [facility] Hematocrit 32.9(L) 35.7 - 45.8 % [facility] Mean Cell Volume 95.6(H) 82.6 - 94.4 fL [facility] Mean Cell Hemoglobin 32.3(H) 27.1 - 32.0 pg [facility] Mean Cell Hemoglobin Concentration 33.7 31.7 - 35.0 g/dL [facility] Platelet 144(L) 145 - 357 x10(3)/mc L [facility] RDW Standard Deviation 42.6 37.0 - 46.0 fL [facility] RDW coefficient of variation 12.3 11.5 - 14.1 % [facility] Mean Platelet Volume 9.4 7.6 - 12.9 fL [facility] NRBC% auto 0.0 % [facility] NRBC Absolute 0.000 0.000 - 0.000 x10(3)/mc L [facility] Blood 03/18/2023 2:14 PM EDT 03/18/2023 2:24 PM EDT Narrative Resulting Agency Comment Spec In Lab Magdalena Peralta MD HEMATOLOGY ORDERABLE S Performing Organization Address City/[facility]/ZIP Co de Phone Number [facility] [place] [address] * (ABNORMAL) Sedimentation rate (03/18/2023 2:14 PM EDT) Sedimentation Rate Automated 68(H) 2 - 39 mm/hr [facility] Comment: Effective July 12, 2019 new capillary photometric technology has resulted in a change in reference ranges. It is recommended that each ESR result be reviewed with its own age appropriate reference range. Blood 03/18/2023 2:14 PM EDT 03/18/2023 2:24 PM EDT Narrative Resulting Agency Comment Spec In Lab Kia Viramontes DO HEMATOLOGY ORDERAB LES [facility] [place] [address] * CRP, acute inflammation (03/18/2023 2:14 PM EDT) C-Reactive Protein 3.0 <=4.9 mg/L [facility] Blood 03/18/2023 2:14 PM EDT 03/18/2023 2:24 PM EDT Narrative Resulting Agency Comment Spec In Lab Kiagiacomo Mossew DO CHEMISTRY ORDERABL ES Performing Organization Address [facility] Co de Phone Number [facility] [place] [address] * C3 Complement (03/18/2023 2:14 PM EDT) Complement C3 142 90 - 180 mg/dL [facility] Blood 03/18/2023 2:14 PM EDT 03/18/2023 2:24 PM EDT Narrative Resulting Agency Comment Spec In Lab Kia Mossew DO CHEMISTRY ORDERABL ES Performing Organization Address [facility] de Phone Number [facility] [place] [address] * C4 Complement (03/18/2023 2:14 PM EDT) Complement C4 30 10 - 40 mg/dL [facility] Blood 03/18/2023 2:14 PM EDT 03/18/2023 2:24 PM EDT Narrative Resulting Agency Comment Spec In Lab Kia Mossew DO CHEMISTRY ORDERABL ES Performing Organization Address [facility] de Phone Number [facility] [place] [address] * CK (03/18/2023 2:14 PM EDT) Creatine Kinase 38 0 - 160 unit/L [facility] Blood 03/18/2023 2:14 PM EDT 03/18/2023 2:24 PM EDT Narrative Resulting Agency Comment Spec In Lab Kia D Wander DO CHEMISTRY ORDERABL ES Performing Organization Address [facility] Co de Phone Number [facility] [place] [address] * DNA Antibody (Double-Stranded) (03/18/2023 2:14 PM EDT) dsDNA Ab <0.6 <=15.0 IU/mL [facility] Comment: <10 negative 10-15 equivocal >15 positive This dsDNA antibody result was generated using a fluoroenzyme immunoassay on the Setup 250 analyzer. This quantitative test is designed to detect IgG antibodies directed against double stranded DNA in human serum. The presence of antibodies that recognize dsDNA is a highly specific marker for systemic lupus erythematosus. Please note that as of 05/26/2022 that this testing is performed by the Special Chemistry Laboratory at [facility]. This change in testing location is associated with a change is testing method and reference intervals. Please review the results of this test in association with the posted reference intervals. Blood 03/18/2023 2:14 PM EDT 03/19/2023 7:19 AM EDT Narrative Resulting Agency Comment Spec In Lab Kia Viramontes DO LAB SEND OUT ORDER JODIE [facility] [place] [address] * (ABNORMAL) FRANCISCO Ab by IFA (03/18/2023 2:14 PM EDT) [facility] FRANCISCO Ab Screen Test ? Result ?Flag ??Unit ??RefValue Antinuclear Ab, HEp-2 ?Positive 1:2560 ??@ ?<1:80 (Negative) ??Substrate, S ? ADDITIONAL INFORMATION --------- ?Method: Immunofluorescence using HEp-2 cellular substrate. ??FRANCISCO Titer: ? 1:2560 ??FRANCISCO Pattern: ? Speckled ?Test Performed by: ?[facility] ?[address] [place] [address] ?Rail Gang Supervisor: Raymond Chaudhry M.D. Ph.D.; CLIA# [id number] ([id number]) [facility] Blood 03/18/2023 2:14 PM EDT 03/18/2023 3:02 PM EDT Narrative Resulting Agency Comment Spec In Lab Kia Viramontes DO CHEMISTRY ORDERABL ES [facility] [place] [address] * Comprehensive metabolic panel (non-fasting) (03/18/2023 2:14 PM EDT) Glucose 93 65 - 199 mg/dL [facility] Comment:Diabetes: >=200 mg/d L plus symptoms Blood Urea Nitrogen 18 8 - 18 mg/dL [facility] Creatinine 0.99 0.70 - 1.20 mg/dL [facility] Sodium 141 135 - 145 mmol/L [facility] Potassium 4.5 3.5 - 5.0 mmol/L [facility] Comment: Please note: ??Patients with WBC >100,000 may have falsely elevated Potassium levels. ??For accurate Potassium quantification in these patients send serum separator tube (gold top) for subsequent determinations. ??Contact the Clinical Chemistry Laboratory if there are any questions. Chloride 106 98 - 107 mmol/L [facility] Carbon Dioxide 24 22 - 31 mmol/L [facility] Anion Gap 11 5 - 15 mmol/L [facility] Calcium 10.0 8.5 - 10.5 mg/dL [facility] Protein, Total 7.3 6.1 - 8.0 g/dL [facility] Albumin 4.3 3.2 - 5.2 g/dL [facility] Aspartate Aminotransferase 26 0 - 30 unit/L [facility] Alanine Aminotransferase 11 0 - 30 unit/L [facility] Alkaline Phosphatase 91 35 - 105 unit/L [facility] Bilirubin, Total 0.4 0.2 - 1.3 mg/dL [facility] Est Glomerular Filtration Rate 62 >=60 mL/min/1. 73 m?? [facility] Comment: This patient's estimated [...] Lab Kia Viramontes DO CHEMISTRY ORDERABL ES [facility] [place] [address] documented in this encounter Visit Diagnoses Diagnosis Positive FRANCISCO (antinuclear antibody) Other and unspecified nonspecific immunological findings documented in this encounter Care Teams Sys Dir Relationship Specialty Start Date End Date Magdalena Acosta MD [address] [place] [address] PCP - General Family Medicine 02/05/23 documented as of this encounter
--- OUTSIDE RECORDS SUMMARY | 2024-04-20 14:24 | XMS_ITS | Encounter Summary ---
Author Organization [facility] [place] [address] Care Team Providers Care Metal Sash Setter Name Role Phone Magdalena Acosta MD Primary Care Provider [phone] Encounter Details Date Type Department Care Team (Late st Contact Info) Description 03/29/2023 Orders Only Cardiology at [address] [address] Ranjan Delgado MD [facility] [place] [place] [address] Severe aortic stenosis (Primary Dx) Social History [...] AM EDT Appointment [place] [address] 05/12/2024 10:00 AM EDT Office Visit [place] [address] Markel Borjas MD [facility] [address] [place] [address] 03/01/2025 4:15 PM EDT Office Visit Dermatology at [place] [address] [place] [phone] Marek Bonilla MD [address] [place] [address] Scheduled Orders Name Type Priority Associated Diagnoses [...] disorders documented in this encounter Care Teams Metal Sash Setter Relationship Specialty Start Date End Date Magdalena Acosta MD [address] [place] [address] PCP - General Family Medicine 02/05/23 documented as of this encounter
--- OUTSIDE RECORDS SUMMARY | 2024-04-20 14:24 | XMS_ITS | Encounter Summary ---
Author Organization [facility] [place] [address] Care Team Providers Care Set Up Operator Name Role Phone Magdalena Acosta MD Primary Care Provider [phone] Encounter Details Date Type Department Care Team (Late st Contact Info) Description 02/17/2023 2:00 PM EDT Office Visit [place] [phone] Alirio Esparza MD Aortic valve stenosis, etiology [...] AM EDT Appointment Hematology [place] [address] 05/12/2024 10:00 AM EDT Office Visit Hematology [place] [phone] Markel Borjas MD [facility] DR HEMATOLOGY [place] [address] 03/01/2025 4:15 PM EDT Office Visit Dermatology at [place] [address] [place] [address] Marek Bonilla MD [address] [facility] [place] [address] documented as of this encounter Visit Diagnoses Diagnosis Aortic valve stenosis, etiology of cardiac valve disease unspecified documented in this encounter Care Teams Set Up Operator Relationship Specialty Start Date End Date Magdalena Acosta MD [address] [place] [address] PCP - General Family Medicine 02/05/23 documented as of this encounter
--- OUTSIDE RECORDS SUMMARY | 2024-04-20 14:24 | XMS_ITS | Encounter Summary ---
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 documented in this encounter Plan of Treatment Upcoming Encounters Date Type Department Care Team (Late st Contact Info) Description 05/12/2024 9:00 AM EDT Appointment [place]ology [place] [address] 05/12/2024 10:00 AM EDT Office Visit [place]emat[place] [address] Markel Borjas MD [facility] [address] [place] [address] 03/01/2025 4:15 PM EDT Office Visit Dermatology at [facility] [address] [facility] [place] [phone] Marek Bonilla MD [address] [place] [address] documented as of this encounter Visit Diagnoses Not on filedocumented in this encounter Care Teams Sewage Disposal Engineer Relationship Specialty Start Date End Date Magdalena Acosta MD [address] [place] [address] PCP - General Family Medicine 02/05/23 documented as of this encounter
--- OUTSIDE RECORDS SUMMARY | 2024-04-20 14:24 | XMS_ITS | Encounter Summary ---
Author Organization Formerly [facility] [address] Care Team Providers Care Filler Machine Operator Name Role Phone Magdalena Acosta MD Primary Care Provider Reason for Referral * Consultation (Routine) - Closed Specialty Diagnoses / Procedures Referred By Contac t Referred To Contact Rheumatology Diagnoses Weakness Kyra Haas MD [facility] [address] [place] [address] [facility] [address] [place] [phone] Referral ID Status Reason Start Date Expiration Date V isits Requested Visits Authorized [id number] Closed Consult, Test & Treat PCP Updated and/or Approved 02/25/2023 02/25/2024 6 6 Encounter Details Date Type Department Care Team (Late st Contact Info) Description 02/25/2023 Transcribe Orders eDH Incoming Referrals [phone] Magdalena Acosta MD [address] [place] [address] Weakness Social History Tobacco Use [...] AM EDT Appointment Hematology [place] [address] 05/12/2024 10:00 AM EDT Office Visit Hematology [place] [address] [facility] [address] [place] [address] 03/01/2025 4:15 PM EDT Office Visit Dermatology at [place] [address] [place] [phone] Marek Bonilla MD [address] [place] [address] Scheduled Referrals Name Type Priority Associated Diagnoses Order Schedule Referral to Rheumatology Outpatient Referral Routine Weakness Ordered: 02/25/2023 documented as of this encounter Visit Diagnoses Diagnosis Weakness Other malaise and fatigue documented in this encounter Care Teams Filler Machine Operator Relationship Specialty Start Date End Date Magdalena Acosta MD [address] [place] [address] PCP - General Family Medicine 02/05/23 documented as of this encounter
--- OUTSIDE RECORDS SUMMARY | 2024-04-20 14:24 | XMS_ITS | Encounter Summary ---
Author Organization [facility] [place] [address] Care Team Providers Care Technology Sales Specialist Name Role Phone Magdalena Acosta MD Primary Care Provider [phone] Encounter Details Date Type Department Care Team [...] AM EDT Appointment Hematology [place] [address] 05/12/2024 10:00 AM EDT Office Visit [place] [address] Markel Borjas MD [facility] [address] HEMATOLOGY [place] [address] 03/01/2025 4:15 PM EDT Office Visit Dermatology at [place] [address] [facility] [place] [phone] Marek Bonilla MD [address] [facility], [place] [address] documented as of this encounter Visit Diagnoses Not on filedocumented in this encounter Care Teams Technology Sales Specialist Relationship Specialty Start Date End Date Magdalena Acosta MD [address] [place] [address] PCP - General Family Medicine 02/05/23 documented as of this encounter
--- OUTSIDE RECORDS SUMMARY | 2024-04-20 14:24 | XMS_ITS | Encounter Summary ---
[place] [address] Care Team Providers Care Die Maker Bench Stamping Name Role Phone Magdalena Acosta MD Primary Care Provider [phone] Reason for Visit * Reason Comments Suture / Staple Removal Encounter Details Date Type Department Care Team (Late st Contact Info) Description 02/16/2023 10:00 AM EDT Office Visit Dermatology at [place] [address] [facility] [place] [phone] Marek Bonilla MD [address] [facility], [address] DERMATOLOGY [place], [place] [phone] Visit for suture removal Social History Tobacco [...] AM EDT Appointment [place]ology [place] [address] 05/12/2024 10:00 AM EDT Office Visit [place] [address] Markel Borjas MD [facility] [address] [place] [address] 03/01/2025 4:15 PM EDT Office Visit Dermatology at [place] [address] [facility] [place] [address] Marek Bonilla MD [address] [place] [address] documented as of this encounter Visit Diagnoses Diagnosis Visit for suture removal Encounter for removal of sutures documented in this encounter Care Teams Die Maker Bench Stamping Relationship Specialty Start Date End Date Magdalena Acosta MD [address] [place] [address] PCP - General Family Medicine 02/05/23 documented as of this encounter
--- OUTSIDE RECORDS SUMMARY | 2024-04-20 14:24 | XMS_ITS | Encounter Summary ---
[facility] Organization [facility] [place] [address] Care Team Providers Care Actuarial Director Name Role Phone Magdalena Acosta MD Primary Care Provider [phone] Reason for Visit * Auth/Cert (Routine) Specialty Diagnoses / Procedures Referred By Contac t Referred To Contact Diagnoses Symptomatic severe aortic stenosis with low ejection fraction NSTEMI, CHF Enrique Chua MD [facility] [place] [address] [facility] Referral ID Status Reason Start Date Expiration Date Visits Re quested Visits Authorized [id number] 1 1 Encounter Details Date Type Department Care Team (Late st Contact Info) Description 05/12/2023 2:50 PM EDT - 05/12/2023 3:50 PM EDT [place] [address] Antelmo Sharma MD [facility] [place] [address] CARDIAC CATHETERIZATION Social History Tobacco Use Types [...] Patient Age: 67 y.o. Birthdate: 1955 Language: Honduran Race: White Ethnicity: Not nor Admit Date: 05/08/2023 Discharge Date: 05/22/2023 Attending Physician: Alirio Hudson MD Follow-up Recommendations for Providers: Please continue routine management of cardiovascular risk factors including blood pressure, lipids,glucose, etc. Please note any medication changes. Patient to follow up with PCP, Magdalena Acosta MD, or Primary Typesetting Machine Tender, Avis Mejia MD, in ~ 7-10 days. Patient to follow up with Claims Processor, Dr. Antelmo Sharma, in 2 weeks with an EKG, Echo, CBC, and CMP. Patient to follow up with Nephrology, their office to arrange. Sjec-Qdxpuu-sz interval: After initial 30 day follow-up appointment , all TAVR patients will follow-up again in one year with an echo. 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 Secondary Diagnoses: Active Hospital Problems Diagnosis S/P TAVR (transcatheter aortic valve replacement) Cardiogenic shock Symptomatic severe aortic stenosis with low ejection fraction Mild coronary artery disease by [facility] 11/09/2022 Heart failure with reduced ejection fraction [...] Tube Placement Right 05/18/2023 Laure Ricks PA [facility] INTERVENTIONL RAD PRG CATH PLMT LEFT HEART CATH & ARTS W/INJ & ANGIO IMG S&I N/A 11/09/2022 CORONARY ANGIOGRAPHY; W [facility],POSSIBLE PCI (WRVU 5.6) performed by Mario Alberto Escobedo MD at [facility] CATH LABS PRG COMBINED RIGHT & LEFT HEART CATH W/INJ L VENTRICULOGRAPHY, IMG S&I N/A 05/12/2023 COMBINED RIGHT & LEFT HEART CATH,INC INJ FOR L VENTRICULOGRAPHY (WRVU 5.99) performed by Antelmo Sharma MD at [facility] CATH LABS PRO AORTOPLAS FOR SUPRAVALV STEN N/A 09/21/2016 @AORTOPLASTY FOR SUPRAVALVULAR STENOSIS (WRVU 29.33) performed by Alirio Hudson MD at [facility] MAIN OR PRO REPLACE AORTIC VALVE (TAVR/FEDERICO)PERC FEMORAL ARTERY APPROACH 05/12/2023 @TRANSCATHETER AORTIC VALVE REPLACEMENT (TAVR), PERCUTANEOUS FEMORAL (WRVU 22.47) performed by Alirio Hudson MD at [facility] CATH LABS PRO REPLACEMENT PROSTHETIC AORTIC VALVE OPEN W CARDIOPULMONARY BYPASS HOMOGRF/STENT N/A 09/21/2016 @REPLACE AORTIC VALVE, OPEN, W\CPB, W\PROSTHETIC VALVE (WRVU 41.32) performed by Alirio Hudson MD at [facility] MAIN OR Prior To Admission [...] Major Procedures/Operations: 05/12/23: Successful right transfemoral TAVR Qnhhf-sp-Khjva with a 23 mm Lai 3 THV. Left coronary protection with left main MINNA. Hospital Course: #Severe prosthetic s/p valve in valve TF TAVR #Low coronary heights s/p left main stent for coronary protection #Type 2 NSTEMI, present on arrival, resolved #Acute decompensated HFrEF #Cardiogenic shock #EVANS / Cardiorenal syndrome Purnima Thacker was admitted to [facility] on 05/08/2023 via the Cardiology [...] and she was brought to the cathode ray tube assembler the following morning where Drs. Alirio Hudson [...] if you have questions. Please call your Claims Processor's office if you have any discharge or drainage from your procedural sites. Your Claims Processor, Dr. Antelmo Sharma and/or the Certified Breastfeeding Educator may be reached at . Antibiotic prophylaxis: You will need to take antibiotics prior to many invasive tests and treatments, such as dental cleaning, which should be done every 6 months. Your primary care physician or your dentist can prescribe this medication. Please refer to the card with the [employer] Guidelines for more information. You have been provided with a copy of this card. Please refer to the [employer] Guidelines for more information. Good [...] should resume a low fat, low cholesterol, [employer] Diet Driving: No restrictions. Shower/Bath: You may shower daily. No baths, soaking, or swimming for the first week. Wound care: Wash the sites daily with soap and rinse well, pat dry. Assess for any signs of infection such as increased redness, pain, warmth or drainage. Please call your formula mixer's office if you have any discharge or drainage from your procedural sites. If there is a lot of swelling, apply mamta wraps during the day and remove at bedtime. Elevate your legs when you are sitting. Home oxygen therapy: N/A Follow up appointments: Please schedule a follow-up appointment with your PCP, Magdalena Acosta MD, or Primary Typesetting Machine Tender in ~ 7-10 days. You have a follow-up appointment with your Claims Processor, Dr. Antelmo Sharma, in 2 weeks with an EKG, Echo, and labs prior to your appointment. You will need follow-up with Nephrology, their office will arrange. Xccb-Ttqnic-fl interval: After initial 30 day follow-up appointment [...] Magdalena Peralta MD Rheumatology at [facility] Arrive at: Front Desk Administrator Area 5C [phone] 02/11/2024 2:00 PM Marek Bonilla MD Dermatology at [place] Arrive at: [facility] [address] [phone] Future Orders Complete By Expires Type and Screen Future Surgery, [facility] SAME DAY PROGRAM ONLY) [[id number] Custom] 05/11/2023 Process Instructions: This test is intended ONLY for patients with upcoming surgery for testing prior to the day of surgery obtained through the same day program (4V or SDP). For ALL OTHER PATIENTS, order a Type and Screen (NXY130) This order includes the physician order for an ABO Recheck if requested by the Blood Bank. Scheduling Instructions: Comments: Questions: Date of surgery: CBC (with Diff) [[id number] Custom] 06/05/2023 12/05/2023 Process Instructions: INCLUDES: WBC, RBC, Hgb, Hct, Platelets, RBC Indices and Differential Scheduling Instructions: Comments: Questions: Comprehensive metabolic panel (non-fasting) [LAB17 Custom] 06/05/2023 08/20/2023 Process Instructions: INCLUDES: Calcium, T Protein, Albumin, AST, ALT, Alk Phos, T Bili, BUN, Creat, GFR, Glucose, Lytes. Scheduling Instructions: Comments: Questions: Echocardiogram Transthoracic [57642 CPT(R)] 06/05/2023 12/05/2023 Process Instructions: Scheduling Instructions: Questions: Where will study be performed?: [facility] Clinics Does the patient have Congenital Heart Disease?: Does patient require sedation?: GA rationale: EKG 12 Lead [32846 CPT(R)] 06/05/2023 12/05/2023 Process Instructions: Scheduling Instructions: Questions: Which location will this be performed?: [place] Is a rhythm strip needed?: No [facility] [EQ161 Custom] As directed Process Instructions: Scheduling Instructions: Questions: Device Needed: WALKER (E0143) Patient Height (cm): 154.9 cm (5' 0.98) Patient Weight: 75.4 kg (166 lb 3.2 oz) Diagnosis: Unsteady gait when walking Referral to Cardiac Rehab [XVF469 Custom] As directed Process Instructions: If no progress note charted, please enter Clinical details in comments. Scheduling Instructions: Questions: My question or request is: s/p TAVR. Cardiac rehab at [facility]. Referral to Home Health [REF34 Custom] As directed Process Instructions: If no progress note charted, please enter Clinical details in comments. Scheduling Instructions: Comments: DOCUMENTATION FOR VNA SERVICES PATIENT'S LOCATION: Purnima Thacker [address] [place] [phone] (home) Senior Net Programmer's Name: Irineo and brother Raymond In discussion with the attending physician, it is certified that this patient is under his/her careand that MD, or an FUR WEIGHER, HOME OFFICE REPRESENTATIVE, or PA who is working directly with him/her, had a difz-jf-wfjl encounter that meets the physician hjml-oj-nwuk encounter requirements with this patient on 05/22/2023. [...] for managing ADLs. HOME HEALTH CARE AGENCY: [facility]. [address] [facility] [address] PHONE: [phone] FAX: [phone] Start of care: Ideally 24-48 hours after [...] Magdalena Acosta MD [address] / [facility] [id number] All VNA agencies which cover the area of patient's residence have been reviewed, either verbally joao writing, and patient has chosen the home health care agency noted. Questions: Disciplines Requested: Physical Therapy Occupational Therapy Discharge References/Attachments None Arrangements for VNA/home care: As above. (delete if no VNA) Signed: EKATERINA NAVARRETE [facility] Section of Cardiac Surgery Date: 05/22/2023 CC: Magdalena Acosta MD HoriconMario Alberto maxwell MD [address] [place] [address] documented in this encounter Discharge Instructions * Patient Instructions* Vinod Juárez PA - 05/22/2023 9:32 AM EDT TAVR Discharge Instructions: Call your doctor if: You have a fever of greater than 101 degrees, shaking chills, if you develop redness or drainage from your procedure sites, or if you have questions. Please call your Claims Processor's office if you have any discharge or drainage from your procedural sites. Your Claims Processor, Dr. Antelmo Sharma and/or the Certified Breastfeeding Educator may be reached at . Antibiotic prophylaxis: You will need to take antibiotics prior to many invasive tests and treatments, such as dental cleaning, which should be done every 6 months. Your primary care physician or your dentist can prescribe this medication. Please refer to the card with the [employer] Guidelines for more information. You have been provided with a copy of this card. Please refer to the [employer] Guidelines for more information. Good [...] should resume a low fat, low cholesterol, [employer] Diet Driving: No restrictions. Shower/Bath: You may shower daily. No baths, soaking, or swimming for the first week. Wound care: Wash the sites daily with soap and rinse well, pat dry. Assess for any signs of infection such as increased redness, pain, warmth or drainage. Please call your formula mixer's office if you have any discharge or drainage from your procedural sites. If there is a lot of swelling, apply mamta wraps during the day and remove at bedtime. Elevate your legs when you are sitting. Home oxygen therapy: N/A Follow up appointments: Please schedule a follow-up appointment with your PCP, Magdalena Acosta MD, or Primary Typesetting Machine Tender in ~ 7-10 days. You have a follow-up appointment with your Claims Processor, Dr. Antelmo Sharma, in 2 weeks with an EKG, Echo, and labs prior to your appointment. You will need follow-up with Nephrology, their office will arrange. Xzvc-Odbcoo-nv interval: After initial 30 day follow-up appointment [...] ins ( tef) Haven Ba, PT Pager: [phone] Physical Therapy Inpatient Rehabilitation Department * Nico [...] 0600 and on the weekends please page [phone]. * Jory Paniagua - 05/20/2023 3:52 PM [...] vomiting Last Bowel Movement: 05/20/23 Jory Paniagua Senior Web Architect * Tong Mike, OT - 05/20/2023 3:16 [...] Tube Placement Right 05/18/2023 Laure Ricks PA [facility] INTERVENTIONL RAD PRG CATH PLMT LEFT HEART CATH & ARTS W/INJ & ANGIO IMG S&I N/A 11/09/2022 CORONARY ANGIOGRAPHY; W [facility],POSSIBLE PCI (WRVU 5.6) performed by Mario Alberto Escobedo MD at [facility] CATH LABS PRG COMBINED RIGHT & LEFT HEART CATH W/INJ L VENTRICULOGRAPHY, IMG S&I N/A 05/12/2023 COMBINED RIGHT & LEFT HEART CATH,INC INJ FOR L VENTRICULOGRAPHY (WRVU 5.99) performed by Antelmo Sharma MD at [facility] CATH LABS PRO AORTOPLAS FOR SUPRAVALV STEN N/A 09/21/2016 @AORTOPLASTY FOR SUPRAVALVULAR STENOSIS (WRVU 29.33) performed by Alirio Hudson MD at [facility] MAIN OR PRO REPLACE AORTIC VALVE (TAVR/FEDERICO)PERC FEMORAL ARTERY APPROACH 05/12/2023 @TRANSCATHETER AORTIC VALVE REPLACEMENT (TAVR), PERCUTANEOUS FEMORAL (WRVU 22.47) performed by Alirio Hudson MD at [facility] CATH LABS PRO REPLACEMENT PROSTHETIC AORTIC VALVE OPEN W CARDIOPULMONARY BYPASS HOMOGRF/STENT N/A 09/21/2016 @REPLACE AORTIC VALVE, OPEN, W\CPB, W\PROSTHETIC VALVE (WRVU 41.32) performed by Alirio Hudson MD at [facility] MAIN OR Social History: Patient lives alone. Home Setup: Pt lives on one level with tub shower and three steps to enter. DME: none used X RAY TECH Baseline ADL/Mobility: Independent with ADLs and [...] WFL Vision & Perception: corrective lenses realtime captioner Communication: WFL Range of motion, strength, coordination: [...] Discharge planning. Total Minutes, Occupational Therapy: 28 (3247-7222) OT Evaluation Code Rationale: Diagnosis & Pertinent Co-Morbidities affecting Plan of Care: see PMHx Occupational Profile & Client History: Brief Expanded Extensive x Assessment of Occupational Performance: 1-3 performance deficits 3-5 performance deficits x 5 + performance deficits Clinical Decision Making: Low Moderate High x Clinical decision making of moderate complexity using standardized patient assessment instrument and measurable assessment of functional outcome. Pager: [phone] TONG MIKE OT 05/20/2023 Occupational Therapy Rehabilitation [...] 0600 and on the weekends please page [phone]. * Rylie Rodriguez MD - 05/19/2023 3:59 [...] Diana Espino - 05/19/2023 1:49 PM EDT Print Room Worker Encounter Note Patient Name: Purnima Thacker : [id number] MR#: [id number] Admit Date: 05/08/2023 9:14 AM Hospital Day [...] as stated. Total Minutes, Physical Therapy: 38 ([phone]) Henrik Navarrete PTA Pager: [phone] Physical Therapy Inpatient Rehabilitation Department * Nico [...] 0600 and on the weekends please page [phone]. * Laure Ricks PA - 05/19/2023 7:56 [...] Ricks PA-C Interventional Radiology IR Team Pager [phone] * Consuelo Espinoza RN - 05/18/2023 4:13 PM EDT ANGIO NURSING DATABASE Name: Purnima Thacker Date of : 1955 AGE: 67 y.o. Address: [address] [place] [address] (home) Mobile: No relevant phone numbers on [...] Mild coronary artery disease by [facility] 11/09/2022 I25.10 Heart failure with reduced ejection [...] and plan. Cynthia Blackburn MD Nephrology Pager: [phone] * Magdalena Puri, SUPERVISOR FACEPIECE LINE - 05/18/2023 10:51 AM EDT Images from the original note were not included. [facility] [place] [address] [address] STRUCTURAL HEART DISEASE CONSULTATION NOTE PRIMARY CARE [...] stenosis. She is now status post TAVR Okiyk-ma-Bzrqo with a 23 mm Lai 3 THV 05/12/[address] Sharma. Preliminary findings: Successful right transfemoral TAVR Gztbi-ee-Rlzvl with a 23 mm Lai 3 THV. [...] Mild coronary artery disease by [facility] 11/09/2022 Heart failure with reduced ejection fraction [...] tablet 40 mg 40 mg Oral Daily ThorntonMara ernandez APRN 40 mg at 05/18/23 0826 Or pantoprazole (Protonix) injection 40 mg 40 mg Intravenous Daily ThorntonMara ernandez APRN 40 mg at 05/12/23 1004 [...] mL 0.5 mL Intramuscular Prior to discharge ThorntonMara ernandez APRN FAMILY HISTORY: No family history [...] stenosis. She is now status post TAVR Eeazv-lr-Apfyo with a 23 mm Lai 3 THV [...] Magdalena Puri APRN Structural Heart Team Pager [phone] Team Office Please see addendum by Dr. Sharma for final plan and recommendations Associated attestation - Antelmo Sharma MD - 05/19/2023 10:52 PM EDT I have reviewed Magdalena Puri APRN's above history and I agree with the details as written. The assessment and plan were formulated in discussion with me and I agree with them as documented. Antelmo Sharma MD Pager [phone] * Nico Palacios PA - 05/18/2023 8:13 [...] 0600 and on the weekends please page [phone]. * Loli Hernandez, PT - 05/17/2023 5:27 [...] plan as stated. Time IN / OUT: 3832-2579 Total Minutes, Physical Therapy: 54 Billing Code: te-sx2, te-f, angely HERNANDEZ PT Pager: [phone] Physical Therapy Inpatient Rehabilitation Department * Cynthia [...] Well controlled. Cynthia Blackburn MD Nephrology Pager: [phone] * Mara Serrano, SUPERVISOR FACEPIECE LINE - 05/17/2023 8:26 AM EDT Cardiac Surgery [...] 0600 and on the weekends please page [phone]. * Guerda Del Valle C - 05/16/2023 10:44 AM EDT Nutrition Services Note - Low Nutrition Acuity Purnima Thacker is a 67 y.o. female Reason for intervention: hospital day 9 Nutrition Plan: Continue diet order Encourage good PO Lasix and Zofran noted Added special serve: open containers Monitor weight Patient scheduled for a hospital day 9 nutrition evaluation. Curriculum Development Specialist met with pt at bedside. Pt reports that her appetite and PO has much improved since admission. Denies nausea/vomiting or trouble chewing/swallowing. Curriculum Development Specialist provided snack list but pt not interested in adding snacks at this time. Her only concern was that she is worried that she will eat too much which will cause too much pressure in her stomach. Curriculum Development Specialist assured pt and suggested eating smaller [...] Last Bowel Movement: 05/10/23 Guerda Del Valle Senior Web Architect * Vinod Juárez PA - 05/16/2023 10:19 [...] 0600 and on the weekends please page [phone]. * Michael Jeffers MD - 05/16/2023 8:11 AM EDT Images from the original note were not included. Hypertension-Nephrology Inpatient Follow-up Purnima Thacker [id number] 1955 ID: 67 y.o. old female seen [...] IRONSAT 12 (L) 05/16/2023 SFOLATE >20.0 07/03/2022 [id number] 07/03/2022 Lab Results Component Value Date [...] Dr. Ayoub. Please contact me at phone: [phone] or pager: [phone] with any questions. Michael Jeffers MD Nephrology [...] -Nephrology consulted, labs and renal US ordered -[place] removed, ambulated around the unit -bilateral pleural [...] 0600 and on the weekends please page [phone]. * Hortencia Cody MD - 05/15/2023 2:07 [...] not included. Hypertension-Nephrology Inpatient Follow-up Purnima Thacker [id number] 1955 ID: 67 y.o. old female seen [...] HGB 7.8 (L) 05/13/2023 SFOLATE >20.0 07/03/2022 [id number] 07/03/2022 Lab Results Component Value Date [...] Dr. Ayoub. Please contact me at phone: [phone] or pager: [phone] with any questions. Michael Jeffers MD Nephrology [...] outlined inthis evaluation. HAVEN BA, PT Pager: [phone] Physical Therapy Inpatient Rehabilitation Department Time IN / OUT: 3722-0392 Total time: Total Minutes, Physical Therapy: 30 [...] 0600 and on the weekends please page [phone]. * Antelmo Sharma MD - 05/14/2023 7:56 AM EDT Images from the original note were not included. [facility] [place] [address] [address] STRUCTURAL HEART DISEASE CONSULTATION NOTE PRIMARY CARE [...] stenosis. She is now status post TAVR Ocizd-nf-Yazdr with a 23 mm Lai 3 THV 05/12/[address] Sharma. Preliminary findings: Successful right transfemoral TAVR Xbvms-mf-Dkokl with a 23 mm Lai 3 THV. [...] perforation. Interval Events: - 05/12 Transferred to [facility] post- TAVR for pressor/inotropic support (Levo, [...] Mild coronary artery disease by [facility] 11/09/2022 Heart failure with reduced ejection fraction [...] stenosis. She is now status post TAVR Ugijs-ui-Nuvsr with a 23 mm Lai 3 THV 05/12/[address] Sharma. Janet TAVR case notable for coronary LAD protective MINNA. Status post TAVR, the patient was transferred to [facility] for pressor and inotropic support. Pressors weaned overnight 05/12. Cardiac indices by thermodilution remained >3 with continued Milrinone 0.125 mcg/kg/min prior to PAC removal. EKG todayNSR with stable WA/QRS intervals. Hemoglobin slowly down-trending (8.2-> 7.8-> 7.2). [...] Brody Kaplan APRN Structural Heart Team Pager [phone] Team Office Please see addendum by Dr. [...] exposure. Nephrology consultationtoday. Antelmo Sharma MD Pager [phone] * Antelmo Cardenas RN - 05/14/2023 5:18 AM EDT Pt AOx4, complaining of mild/moderate generalized pain (states her Meloxicam is effective at home) currently refusing prn oxycodone. NAEON, hemodynamically stable on Milrinone, Maps >65, ST in yqu414's down to NSR with frequent multifocal PVC's. [...] original note were not included. [facility] [place] [address] [address] STRUCTURAL HEART DISEASE PROGRESS NOTE PRIMARY CARE [...] stenosis. She is now status post TAVR Jqbuf-ae-Uoclu with a 23 mm Lai 3 THV 05/12/[address] Sharma. Preliminary findings: Successful right transfemoral TAVR Xrrrh-bo-Aeoum with a 23 mm Lai 3 THV. [...] Mild coronary artery disease by [facility] 11/09/2022 Heart failure with reduced ejection fraction [...] stenosis. She is now status post TAVR Hrnat-vr-Noazz with a 23 mm Lai 3 THV 05/12/[address] Sharma. Janet TAVR case notable for coronary LAD protective MINNA. Status post TAVR, the patient was transferred to [facility] for pressor and inotropic support. Pressors weaned overnight. Cardiac indices by thermodilution remain greater than 3 with continued Milrinone 0.125 mcg/kg/min. EKG today NSR with stable WA/QRS intervals. Hemoglobin 7.8 [...] Brody Kaplan APRN Structural Heart Team Pager [phone] Team Office Please see addendum by Dr. [...] DAPT moving forward. Antelmo Sharma MD Pager [phone] * Bonita Miguel PA - 05/13/2023 8:30 AM EDT Cardiac Surgery Progress Note Purnima Thacker is a 67 y.o. 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 PMH of s/p tissue AVR (2017), mixed connective tissue disease HTN, HLD, NICOLAS, diverticulosis, rosacea, essential tremor, and depression. 24h Events: From cathode ray tube assembler for above procedure Extubated at ~1600 to [...] soft b/l, no evidence of hematoma. Tubes/Lines/Drains: [place], RIJ, A-line, Art, PIV Assessment/Plan: 67 y.o. [...] 0600 and on the weekends please page [phone]. * Onelia Schwartz MD - 05/12/2023 1:44 [...] Mild coronary artery disease by [facility] 11/09/2022 Heart failure with reduced ejection fraction [...] FiO2 weaned to 40%. 1105: ABG 7.34/42/73/22 8140-1499: SBT performed and passed on these settings [...] PCP: Magdalena Acosta MD PCP phone number: [phone] Date of Admission: 05/08/2023 ( Hospital Day [...] 1447 PHART -- 7.34* 7.34* -- -- WBP2LJS -- 30* 30* -- -- PO2ART -- 72* 81* -- -- HDK5RJX -- 16.0* 15.7* -- -- LACTATEVEN 2.4* 2.7* 2.7* 4.8* 2.9* VBG (Venous Blood Gas) Recent Labs 05/12/23 0700 05/12/238 05/12/2310505/11/23193905/11/23 144 LACTATEVEN 2.4* 2.7* 2.7* 4.8* 2.9* Mixed Venous Sat Recent Labs 05/12/23 0508 05/12/23 0321 05/12/23 0114 05/12/23 0030 [id number] 30.7 32.7 37.3 25.1 Objective: Vitals Last [...] who have questions please contact the health rn complex care that requested your imaging first. Electronically signed by: ALIX RUVALCABA MD, [facility] ([phone]), at 05/10/2023 1:[address] Cardiac for [...] who have questions please contact the health rn complex care that requested your imaging first. Electronically signed by: Cullen Narayanan MD, [facility] ([phone]), at 05/11/2023 4:[address] Angiogram Abdomen [...] who have questions please contact the health rn complex care that requested your imaging first. Electronically signed by: Eileen Gomes MD, [facility] ([phone]), at 05/11/2023 2:42 PM XR Chest One [...] who have questions please contact the health rn complex care that requested your imaging first. Electronically signed by: Will Rowe MD, [facility] ([phone]), at 05/11/2023 11:57 PM XR Chest One [...] who have questions please contact the health rn complex care that requested your imaging first. Electronically signed by: Will Rowe MD, [facility] ([phone]), at 05/12/2023 3:16 AM Assessment & Plan: [...] and inotrope. She is planned for a guzmf-wy-yqdiw TAVR this morning, which should hopefully improve [...] MD, FACP, FACC Section of Cardiovascular Medicine [facility] Chaplainincising machine operator [facility] [employer] [facility] * Noreen Deutsch RN - 05/12/2023 [...] Mild coronary artery disease by [facility] 11/09/2022 Heart failure with reduced ejection fraction [...] 05/11/2023 4:11 PM EDT Reported off to MOTOR TESTER and pt transferred over in the bed for higher level of care. * Antelmo Sharma MD - 05/11/2023 9:45 AM EDT Images from the original note were not included. [facility] [place] [address] [address] STRUCTURAL HEART DISEASE CONSULTATION NOTE PRIMARY CARE [...] who had been referred for possible TAVR sxtbm-fx-ndysz evaluation. Her primary symptoms are of dyspnea [...] [facility]. 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 [...] Mild coronary artery disease by [facility] 11/09/2022 Heart failure with reduced ejection fraction [...] whole blood, send to lab ([facility]) Result Value Ref Range Lactate WB 3.1 (H) 0.5 - 2.2 mmol/L Heparin (unfractionated) Level Result Value Ref Range Heparin UFH Level 0.46 IU/mL Lactate, whole blood, send to lab ([facility]) Result Value Ref [...] leads Confirmed by MD Harshil, Enrique Bell ([id number]) on 05/10/2023 8:11:46 AM Cardiac Cath 11/09/2022 [...] Dr. Hudson of her inpatient status, [place] primary cardiac surgeon. Based on recent clinic visit, tentative plan had been for TAVR JANET issa ferrera given her chronological age. Cardiac cath 11/09/2022 notable for non-obstructive coronary disease. TAVR CTAs planned for today. Will review her case with cardiac surgery to determine best timing and therapies for her valve intervention. Addendum 05/11/2023 6:48 PM Due to decompensating HFrEF, she was transferred to [facility] this afternoon for further management. TAVR CT imaging support for adequate ileofemoral access. Given her acute deterioration today, will planfor RTF TAVR on 05/12/2023. Brody Kaplan APRN Structural Heart Disease Pager [phone] Please see addendum by Dr. Sharma for [...] signed and dated. Antelmo Sharma MD Pager [phone] * Harini Lance MD - 05/11/2023 6:06 AM EDT Images from the original note were not included. Cardiology Progress Note Patient info: Name: Purnima Thacker : 1955 PCP: Magdalena Acosta MD PCP phone number: [phone] Date of Admission: 05/08/2023 ( Hospital Day [...] who have questions please contact the health rn complex care that requested your imaging first. 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) Mild coronary artery disease by [facility] 11/09/2022 Hyperlipidemia, unspecified NICOLAS (obstructive sleep apnea) [...] PCP: Magdalena Acosta MD PCP phone number: [phone] Date of Admission: 05/08/2023 ( Hospital Day [...] Mild coronary artery disease by [facility] 11/09/2022 Hyperlipidemia, unspecified NICOLAS (obstructive sleep apnea) [...] PCP: Magdalena Acosta MD PCP phone number: [phone] Date of Admission: 05/08/2023 ( Hospital Day [...] Gas) No results found for: PHART, PO2ART, YOC2HZJ, IVV5ZQE Microbiology: Microbiology Results (Last 30 days) No [...] Daily Healthy Menu Choices/Cardiac diet ([facility]) Lines: Peripheral IV Line - [...] Mild coronary artery disease by [facility] 11/09/2022 Hyperlipidemia, unspecified NICOLAS (obstructive sleep apnea) [...] Mild coronary artery disease by [facility] 11/09/2022 I25.10 Heart failure with reduced ejection fraction due to heart valve disease I50.20, I38 Cardiogenic shock R57.0 S/P TAVR (transcatheter aortic valve replacement) Z95.2 Past Medical History: Diagnosis Date Anemia Past Surgical History: Procedure Laterality Date PRG CATH PLOK LEFT HEART CATH & ARTS W/INJ & ANGIO IMG S&I N/A 11/09/2022 CORONARY ANGIOGRAPHY; W [facility],POSSIBLE PCI (WRVU 5.6) performed by Mario Alberto Escobedo MD at [facility] CATH LABS PRO AORTOPLAS FOR SUPRAVALV STEN N/A 09/21/2016 @AORTOPLASTY FOR SUPRAVALVULAR STENOSIS (WRVU 29.33) performed by Alirio Hudson MD at [facility] MAIN OR PRO REPLACEMENT PROSTHETIC AORTIC VALVE OPEN W CARDIOPULMONARY BYPASS HOMOGRF/STENT N/A 09/21/2016 @REPLACE AORTIC VALVE, OPEN, W\CPB, W\PROSTHETIC VALVE (WRVU 41.32) performed by Alirio Hudson MD at [facility] MAIN OR Social History and [...] Mild coronary artery disease by [facility] 11/09/2022 I25.10 Heart failure with reduced ejection fraction due to heart valve disease I50.20, I38 Cardiogenic shock R57.0 S/P TAVR (transcatheter aortic valve replacement) Z95.2 Past Medical History: Diagnosis Date Anemia Past Surgical History: Procedure Laterality Date PRG CATH PLOK LEFT HEART CATH & ARTS W/INJ & ANGIO IMG S&I N/A 11/09/2022 CORONARY ANGIOGRAPHY; W [facility],POSSIBLE PCI (WRVU 5.6) performed by Mario Alberto Escobedo MD at [facility] CATH LABS PRO AORTOPLAS FOR SUPRAVALV STEN N/A 09/21/2016 @AORTOPLASTY FOR SUPRAVALVULAR STENOSIS (WRVU 29.33) performed by Alirio Hudson MD at [facility] MAIN OR PRO REPLACEMENT PROSTHETIC AORTIC VALVE OPEN W CARDIOPULMONARY BYPASS HOMOGRF/STENT N/A 09/21/2016 @REPLACE AORTIC VALVE, OPEN, W\CPB, W\PROSTHETIC VALVE (WRVU 41.32) performed by Alirio Hudson MD at [facility] MAIN OR Social History and [...] Hgb 10.5 CMP - Cr 1.1 BNP 71736 HsTrop 1358 Lactate 1.6 D-dimer 1183 Interval History Patient was admitted to [facility] due to concern on low BP [...] Klaudia Reid MD Internal Medicine PGY-1 Pager [phone], M1-S1 Service Associated attestation - Juan Luis Gonzalez MD - 05/08/2023 10:00 PM EDT Cardiology Attending Addendum Active Hospital Problems Diagnosis Symptomatic severe aortic stenosis with low ejection fraction Heart failure with reduced ejection fraction due to heart valve disease Mild coronary artery disease by [facility] 11/09/2022 Hyperlipidemia, unspecified History of aortic valve [...] PCP: Magdalena Acosta MD PCP phone number: [phone] Date of Admission: 05/08/2023 ( Hospital Day [...] Hgb 10.5 CMP - Cr 1.1 BNP 22966 HsTrop 1358 Lactate 1.6 D-dimer 1183 Vasoactive [...] Daily Healthy Menu Choices/Cardiac diet ([facility]) DVT Prophylaxis: heparin gtt GI [...] to the planned procedure. Hand Hygiene: The shellfish weigher did perform hand hygiene prior to arterial [...] Successful arterial line placement. Crispin Timmons MD Certified Breastfeeding Educator Associated attestation - Onelia Schwartz MD - [...] (flow was non-pulsatile) and appearance of blood. [place] catheter was placed and locked at 55 [...] information for follow-up [facility], [place] [address] [place] [address] Cardiac Rehab, [place] [address] [place] [address] [facility], [place] [address] [place] [address] Transportation: family or friend will provide *Brother [...] Type: *No Product type* / Secondary Insurance: [employer] [place] Prescription Coverage: Yes This plan was formulated with input from patient, family (please identify family/friend involved ifapplicable) and team. All are in agreement with plan. Aliza Martino MSN-Ed, RN ACM editorial cartoonist Office of Care Management Pager #[phone] * Plan of Care - Favian Mckeon [...] Appropriate) * Plan of Care - Kia Galleog RN - 05/21/2023 4:52 PM EDT Problem: [...] Lana Chaudhary RN - 05/21/2023 4:46 PM [facility] [place] [facility] referral OFFICE OF CARE MANAGEMENT [...] Type: *No Product type* / Secondary Insurance: [employer] [facility] [place] Last Physical Therapy Recommendation: (Home [...] describing our affiliations within the [facility] and educate about their right to choose where referrals are sent. provide a list of Home Health Agencies / Durable Medical Equipment vendors which serve their preferred geographic area. They have requested referrals to: [facility] [address] [place] [address] [facility] @ [place], [place] Note routed to a Aviation Maintenance Technician who will communicate referrals to facilities and provide any required information. Transportation: family or friend will provide *Brother Raymond on Tuesday 05/22 at 1000 Barriers to discharge: Does not have home 22/02 assist available until tomorrow Tuesday 05/22 Plan going forward: Discharge home into the 22/02 home care of brother Raymond with [facility] and [place] [facility] PT/OT services on Tuesday 05/22 [...] Attending: All Staff: Staff Role Juanita Almaguer Process Manufacturing Engineer Luare Ricks PA Physician Nitrocellulose Operator Magdalena Rodriguez RN Radiology Nurse Consuelo Espinoza clinic business manager Nurse Post-operative diagnosis/Indication: Right pleural effusion [...] Type: *No Product type* / Secondary Insurance: [facility] [place] Last Physical Therapy Recommendation: shelter facility, swing bed rehabilitation facility with to be determined Last Occupational Therapy Recommendation: with Plan for discharge is: [facility] Facility / Swing Outpatient Agency/Support Group Needs: None Agency Referrals: Based on discussions with the multi-disciplinary healthcare team, the patient would benefit from SNF / Swing level of care at discharge. I have met with the patient to: discuss discharge planning needs. provide the [facility], Office of Care Management letter from the Mail Weigher pertaining to rehab referrals. provide a letter describing our affiliations within the [facility] and educate about their right to choose where referrals are sent. provide the CMS Star Quality Rating handout. review the different levels of rehab including SNF, swing, and acute. provide a list of facilities within their preferred geographic area. request that they provide at least three choices for referral. They have requested referrals to: [facility] [address] [place] [address] [facility] ([facility]) [address] [place] [address] (Accepts pts only after exhausting all other local SNF options) [facility] (Swing) ([facility]) [address] [place] [address] PHONE: [phone] FAX: [phone] [facility] ([facility]) [facility]) [address] [place] [address] PHONE: [phone] FAX: [phone] Note routed to a Aviation Maintenance Technician who will communicate referrals to facilities [...] - 05/17/2023 10:25 AM EDT [facility] CARDIAC REHABILITATION Purnima Thacker was [...] from the original note were not included. [facility] NEPHROLOGY/HYPERTENSION CONSULT NOTE PATIENT: Purnima Thacker [...] in her course. She ultimately underwent a wlvko-yh-wnomg procedure on and tolerated it well (see [...] 1423 05/12/23 1105 PHART 7.39 7.37 7.34* OQG4OKG 33* 36 42 PO2ART 101 102 73* RSS6OWP 19.5* 20.4 22.1 LACTATEVEN 1.5 1.8 2.8* BVI8SAW 40 40 40 PFRATIOART2 252 255 182 VBG (Venous Blood Gas) Recent Labs 05/12/23 1557 05/12/23 1423 05/12/23 1105 LACTATEVEN 1.5 1.8 2.8* Mixed Venous Sat Recent Labs 05/12/23 1425 05/12/23 0508 05/12/23 0321 I1LYSU6 59.9 30.7 32.7 LFT's: Recent Labs 05/14/23 0110 05/13/23 0115 05/12/23 0600 BILITOT 0.4 0.5 0.9 BILIDIR -- 0.3 -- ALBUMIN 3.6 3.0* 3.5 ALKPHOS 86 85 100 ALT 437* 903* 1,174* AST 319* 792* 1,435* No results found for: UPROTCREAT No results found for: TPROTEINPEP, ALBELECT No results found for: MICROALBUR, VQCQ33RVP No results found for: HA1C Lab Results Component Value Date CALCIUM 8.5 05/14/2023 PHOS 4.7 (H) 05/08/2023 No results found for: 25OHVITD MICROBIOLOGY: ProcedureComponentValueUnitsDate/TimeUrine culture [[id number]]Collected: 05/11/231921Lab Status: Final resultSpecimen: Clean Catch UrineUpdated: [...] for assessment if this patient needs CUSTOMER SOLUTIONS ARCHITECT. Atthis time, we can likely hold off on CUSTOMER SOLUTIONS ARCHITECT. Her volume status appears sufficient and her metabolic kanwal angements with mild acidosis is not too profound. Patient does not have significant uremic symptoms. We can hold off for today, but the patient is a high risk candidate for needing CUSTOMER SOLUTIONS ARCHITECT in future daysespecially if her Cr curve trends the direction it is for the next several days. S/p Ntsmq-mr-Nfpsd TF TAVR: Management per cardiology. On milrinone gtt. PLAN: - Please obtain following diagnostics: renal US, urinalysis, urine prot/Cr ratio, urine albumin/Cr ratio, CK, uric acid, serum osmol, daily VBGs - No acute indications for CUSTOMER SOLUTIONS ARCHITECT/dialysis. We will keep close eye on Cr trend, volume status, and metabolics to ensure patient still does not need CUSTOMER SOLUTIONS ARCHITECT as she ensues intrinsic renal recovery - [...] M.H.Katherine., M.A. PGY-V Nephrology-Hypertension Fellow Page # [phone] [facility] [address] 2nd floor, Front Desk Administrator [address] [place] [address] * Care Management - Mario Alberto Olmos [...] for a TAVR at 730. Returned to [facility] at 0945. Was intubated in the cathode ray tube assembler due to agitation. Maintained bedrest for 5 [...] Operative Note Patient Name: Purnima Thacker : [id number] MR#: [id number] Case Date: 05/12/2023 Surgeon: Surgeon(s) and Role: [...] procedure Note: Patient Name: Purnima Thacker : [id number] MR#: [id number] Case Date: 05/12/2023 Operators Surgeon: Surgeon(s) and [...] main with 4.0 x 30 mm Resolute [facility] Eluting Stent Perclose x1 + Angio-seal 8 Fr x1, RFA Manual pressure, LFA Manual pressure, LFV Endotracheal intubation (performed by cardiac anesthesia) Preliminary findings: Successful right transfemoral TAVR Zbjdc-pl-Xeffo with a 23 mm Lai 3 THV. [...] MD, M.Sc. Structural Heart Disease Fellow Pager :[phone] Antelmo Sharma MD Pager [phone] * Op Note - Alirio Hudson MD - 05/12/2023 7:37 AM EDT Preop Diagnosis: Severe aortic stenosis, symptomatic. Postop Diagnosis: Same. Procedure: Transfemoral TAVR procedure with 23mm valve. Surgeon: Alirio Hudson M.D. Typesetting Machine Tender: Danny CULP Procedure: The patient was taken to the cathode ray tube assembler. The patient had monitored anesthesia care. 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 [facility] [place] [address] [place] [address] STRUCTURAL HEART DISEASE CONSULTATION NOTE PRIMARY CARE [...] who had been referred for possible TAVR kwsqx-jn-zkwoq evaluation. Her primary symptoms are of dyspnea [...] [facility]. 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 [...] Mild coronary artery disease by [facility] 11/09/2022 Heart failure with reduced ejection fraction [...] whole blood, send to lab ([facility]) Result Value Ref [...] leads Confirmed by MD Harshil, Enrique Bell ([id number]) on 05/10/2023 8:11:46 AM Assessment and Plan: [...] Dr. Hudson of her inpatient status, [place] primary cardiac surgeon. Based on recent clinic [...] Antelmo Sharma MD Structural Heart Disease Pager [phone] * Plan of Care - Sarahi Nice RN - 05/10/2023 3:55 AM EDTSumavis: RN Note and Care Plan Sarahi Nice RN assumed care of pt at time of their arrival to room 362 from [facility]. Pt voices shortness of breath at [...] VTE (Venous Thromboembolism) Risk Flowsheets (Taken 05/09/2023 3496) VTE Prevention/Management: anticoagulant therapy Intervention: Prevent Infection [...] listening utilized Taken 05/08/20231999 by Alivia Kauffman filler in/Support System Care: self-care encouraged support provided Problem: [...] 180 days) Any patient receiving care in [place] must abide by [place] law. The hierarchy [...] (i) The agent with financial power of employment law attorney or a conservator appointed in accordance [...] DME: none Home Address confirmed as: [address] [place] [address] Social & Family Supports: All names listed [...] Prescription Coverage: Yes Preferred Pharmacy: [facility] to [facility] Status: Patient is a : No Primary Care Provider confirmed: Magdalena Acosta MD [phone] Patient/Caregiver Goals of Treatment: Potential Needs for [...] transition of care planning. Alie Bradshaw RN, Pager-[phone] * Plan of Care - Emily Lucero [...] AM EDT Appointment Hematology [place] [address] 05/12/2024 10:00 AM EDT Office Visit [place]ematology [place] [address] Markel Borjas MD [facility] [place] [address] 03/01/2025 4:15 PM EDT Office Visit Dermatology at [address] [place] [address] Marek Bonilla MD [address], [place] [address] Scheduled Referrals Name Type Priority Associated Diagnoses [...] Heart Cath W/Inj L Ventriculography, Img S&I ([id number]) 05/12/2023 7:37 AM EDT Aortic valve stenosis, [...] EST Narrative 07/08/2023 12:26 PM EST [address] [place] [address] ? Echocardiogram Report Name: PURNIMA THACKER ?Study Date: 07/08/2023 10:31 AMBP: 118/60 mmHg ? Patient Location: 4A : 1955 ? Height: 155 cm ? Account: [id number] Age: 67 yrs ? Weight: 74 kg Gender: Female ?BSA: 1.7 m2 Ordering Physician: ALIRIO HUDSON Referring Physician: VINOD JUÁREZ Performed By: Felicia Norris RODOLFO Reason For Study: S/P TAVR Exam Location: [facility]. Interpretation Summary Left ventricular systolic [...] no significant change (post-procedure). Procedure Limited - 65615. Doppler - 06053. Color Doppler - 11411. Satisfactory quality. This study is limited because [...] Note Lee Kincaid MD - 07/08/2023 [address] [place] [address] Echocardiogram Report Name: PURNIMA THACKER Study Date: 12/07/346231:31 AMBP: 118/60 mmHg Patient Location: : 1955 Height: 155 cm Account: [id number] Age: 67 yrs Weight: 74 kg Gender: Female BSA: 1.7 m2 Ordering Physician: ALIRIO HUDSON Referring Physician: VINOD JUÁREZ Performed By: Felicia Norris RDCS Reason For Study: S/P TAVR Exam Location: [facility]. Interpretation Summary Left ventricular systolic [...] is nosignificant change (post-procedure). Procedure Limited - 61788. Doppler - 38904. Color Doppler - 75469. Satisfactoryquality. This study is limited because of [...] EST) Glucose 93 65 - 199 mg/dL [facility] Comment:Diabetes: >=200 mg/d L plus symptoms Blood Urea Nitrogen 19(H) 8 - 18 mg/dL [facility] Creatinine 0.81 0.70 - 1.20 mg/dL [facility] Sodium 142 135 - 145 mmol/L [facility] Potassium 3.8 3.5 - 5.0 mmol/L [facility] Comment: Please note: ??Patients with WBC >100,000 may have falsely elevated Potassium levels. ??For accurate Potassium quantification in these patients send serum separator tube (gold top) for subsequent determinations. ??Contact the Clinical Chemistry Laboratory if there are any questions. Chloride 104 98 - 107 mmol/L [facility] Carbon Dioxide 26 22 - 31 mmol/L [facility] Anion Gap 12 5 - 15 mmol/L [facility] Calcium 10.2 8.5 - 10.5 mg/dL [facility] Protein, Total 7.4 6.1 - 8.0 g/dL [facility] Albumin 4.1 3.2 - 5.2 g/dL [facility] Aspartate Aminotransferase 24 0 - 30 unit/L [facility] Alanine Aminotransferase 12 0 - 30 unit/L [facility] Alkaline Phosphatase 93 35 - 105 unit/L [facility] Bilirubin, Total 0.3 0.2 - 1.3 mg/dL [facility] Est Glomerular Filtration Rate 80 >=60 mL/min/1. 73 m?? [facility] Comment: This patient's estimated GFR was [...] Lab Alirio Hudson MD CHEMISTRY ORDERABLE S [facility] [address] * (ABNORMAL) Basic Metabolic Panel (non-fasting) (05/22/2023 3:57 AM EDT) Glucose 88 65 - 199 mg/dL [facility] Comment:Diabetes: >=200 mg/d L plus symptoms Blood Urea Nitrogen 21(H) 8 - 18 mg/dL [facility] Creatinine 0.69(L) 0.70 - 1.20 mg/dL [facility] Sodium 136 135 - 145 mmol/L [facility] Potassium 3.6 3.5 - 5.0 mmol/L [facility] Comment: Please note: ??Patients with WBC >100,000 may have falsely elevated Potassium levels. ??For accurate Potassium quantification in these patients send serum separator tube (gold top) for subsequent determinations. ??Contact the Clinical Chemistry Laboratory if there are any questions. Chloride 102 98 - 107 mmol/L [facility] Carbon Dioxide 23 22 - 31 mmol/L [facility] Anion Gap 11 5 - 15 mmol/L [facility] Calcium 8.6 8.5 - 10.5 mg/dL [facility] Est Glomerular Filtration Rate 95 >=60 mL/min/1. 73 m?? [facility] Comment: This patient's estimated GFR was [...] Lab Mara Maggie ANURAG CHEMISTRY ORDERABL ES [facility] [facility] [address] * (ABNORMAL) Basic Metabolic Panel (non-fasting) (05/21/2023 5:06 AM EDT) Glucose 87 65 - 199 mg/dL [facility] Comment:Diabetes: >=200 mg/d L plus symptoms Blood Urea Nitrogen 25(H) 8 - 18 mg/dL [facility] Creatinine 0.84 0.70 - 1.20 mg/dL [facility] Sodium 136 135 - 145 mmol/L [facility] Potassium 3.6 3.5 - 5.0 mmol/L [facility] Comment: Please note: ??Patients with WBC >100,000 may have falsely elevated Potassium levels. ??For accurate Potassium quantification in these patients send serum separator tube (gold top) for subsequent determinations. ??Contact the Clinical Chemistry Laboratory if there are any questions. Chloride 102 98 - 107 mmol/L [facility] Carbon Dioxide 26 22 - 31 mmol/L [facility] Anion Gap 8 5 - 15 mmol/L [facility] Calcium 8.9 8.5 - 10.5 mg/dL [facility] Est Glomerular Filtration Rate 76 >=60 mL/min/1. 73 m?? [facility] Comment: This patient's estimated GFR was [...] Resulting Agency Comment Spec In Lab [facility] SUPERVISOR FACEPIECE LINE CHEMISTRY ORDERABL ES Performing Organization Address City/[facility]/ZIP Co de Phone Number [facility] [address] * Lavender Tube HOLD (05/20/2023 2:52 AM EDT) Lavender Hold Sample in lab. [facility] Blood Venous Draw / Unknown 05/20/2023 2:52 AM EDT 05/20/2023 3:04 AM EDT [facility] SUPERVISOR FACEPIECE LINE HEMATOLOGY ORDERAB LES Performing Organization Address City/[facility]/ZIP Co de Phone Number [facility] [address] * (ABNORMAL) Basic Metabolic Panel (non-fasting) (05/20/2023 2:52 AM EDT) Glucose 152 65 - 199 mg/dL [facility] Comment:Diabetes: >=200 mg/d L plus symptoms Blood Urea Nitrogen 33(H) 8 - 18 mg/dL [facility] Creatinine 0.82 0.70 - 1.20 mg/dL [facility] Sodium 137 135 - 145 mmol/L [facility] Potassium 3.7 3.5 - 5.0 mmol/L [facility] Comment: Please note: ??Patients with WBC >100,000 may have falsely elevated Potassium levels. ??For accurate Potassium quantification in these patients send serum separator tube (gold top) for subsequent determinations. ??Contact the Clinical Chemistry Laboratory if there are any questions. Chloride 99 98 - 107 mmol/L [facility] Carbon Dioxide 22 22 - 31 mmol/L [facility] Anion Gap 16(H) 5 - 15 mmol/L [facility] Calcium 9.0 8.5 - 10.5 mg/dL [facility] Est Glomerular Filtration Rate 78 >=60 mL/min/1. 73 m?? [facility] Comment: This patient's estimated GFR was [...] Lab Mara Serrano APRN CHEMISTRY ORDERABL ES [facility] [address] * (ABNORMAL) Potassium (05/20/2023 2:52 AM EDT) Potassium 3.4(L) 3.5 - 5.0 mmol/L [facility] Comment: Please note: ??Patients with WBC >100,000 may have falsely elevated Potassium levels. ??For accurate Potassium quantification in these patients send serum separator tube (gold top) for subsequent determinations. ??Contact the Clinical Chemistry Laboratory if there are any questions. Blood 05/20/2023 2:52 AM EDT 05/20/2023 3:03 AM EDT Narrative Resulting Agency Comment Spec In Lab Mara Serrano SUPERVISOR FACEPIECE LINE CHEMISTRY ORDERABL ES [facility] [address] * XR Chest PA & Lateral (Generic) [...] who have questions please contact the health rn complex care that requested your imaging first. ? [...] patients who have questions please contactthe health rn complex care that requested your imaging first. Electronically signed by: Chyna Johnson MD, [facility]([phone]), at 05/19/2023 2:19 PM Alirio Hudson MD IMG DX ORDERABLES * (ABNORMAL) Basic Metabolic Panel (non-fasting) (05/19/2023 5:49 AM EDT) Glucose 93 65 - 199 mg/dL [facility] Comment:Diabetes: >=200 mg/d L plus symptoms Blood Urea Nitrogen 45(H) 8 - 18 mg/dL [facility] Creatinine 1.02 0.70 - 1.20 mg/dL [facility] Sodium 138 135 - 145 mmol/L [facility] Potassium 3.9 3.5 - 5.0 mmol/L [facility] Comment: Please note: ??Patients with WBC >100,000 may have falsely elevated Potassium levels. ??For accurate Potassium quantification in these patients send serum separator tube (gold top) for subsequent determinations. ??Contact the Clinical Chemistry Laboratory if there are any questions. Chloride 102 98 - 107 mmol/L [facility] Carbon Dioxide 26 22 - 31 mmol/L [facility] Anion Gap 10 5 - 15 mmol/L [facility] Calcium 9.7 8.5 - 10.5 mg/dL [facility] Est Glomerular Filtration Rate 60 >=60 mL/min/1. 73 m?? [facility] Comment: This patient's estimated GFR was [...] Resulting Agency Comment Spec In Lab [facility] ES Performing Organization Address City/State/[facility] Co de Phone Number [facility] [place] [address] * IR Chest Tube Placement Right (05/18/2023 [...] Panel (non-fasting) (05/18/2023 2:54 AM EDT) Pathologist [facility] Glucose 95 65 - 199 mg/dL [facility] Comment:Diabetes: >=200 mg/d L plus symptoms Blood Urea Nitrogen 71(H) 8 - 18 mg/dL [facility] Comment:result rechecked-[facility] Creatinine 1.64(H) 0.70 - 1.20 mg/dL [facility] Comment:result rechecked-[facility] Sodium 137 135 - 145 mmol/L [facility] Potassium 3.7 3.5 - 5.0 mmol/L [facility] Comment: Please note: ??Patients with WBC >100,000 may have falsely elevated Potassium levels. ??For accurate Potassium quantification in these patients send serum separator tube (gold top) for subsequent determinations. ??Contact the Clinical Chemistry Laboratory if there are any questions. Chloride 100 98 - 107 mmol/L [facility] Carbon Dioxide 24 22 - 31 mmol/L [facility] Anion Gap 13 5 - 15 mmol/L [facility] Calcium 9.7 8.5 - 10.5 mg/dL [facility] Est Glomerular Filtration Rate 34(L) >=60 [...] Agency Comment Spec In Lab Marakatherine Serrano SUPERVISOR FACEPIECE LINE CHEMISTRY ORDERABL ES [facility] [address] * XR Chest PA & Lateral (Generic) [...] who have questions please contact the health rn complex care that requested your imaging first. ? Electronically signed by: Ghassan Reyes MD, [facility] ??([phone]), at 05/17/2023 11:46 AM Narrative 05/17/2023 11:46 [...] patients who have questions please contactthe health rn complex care that requested your imaging first. Electronically signed by: Ghassan Reyes MD, [facility]([phone]), at 05/17/2023 11:46 AM Alirio Hudson MD IMG DX ORDERABLES * (ABNORMAL) Comprehensive metabolic panel (non-fasting) (05/17/2023 4:35 AM EDT) Glucose 89 65 - 199 mg/dL [facility] Comment:Diabetes: >=200 mg/d L plus symptoms Blood Urea Nitrogen 97(H) 8 - 18 mg/dL [facility] Creatinine 2.97(H) 0.70 - 1.20 mg/dL [facility] Comment:result rechecked-JSJ Sodium 135 135 - 145 mmol/L [facility] Potassium 4.1 3.5 - 5.0 mmol/L [facility] Comment: Please note: ??Patients with WBC >100,000 may have falsely elevated Potassium levels. ??For accurate Potassium quantification in these patients send serum separator tube (gold top) for subsequent determinations. ??Contact the Clinical Chemistry Laboratory if there are any questions. Chloride 97(L) 98 - 107 mmol/L [facility] Carbon Dioxide 22 22 - 31 mmol/L [facility] Anion Gap 16(H) 5 - 15 mmol/L [facility] Calcium 9.6 8.5 - 10.5 mg/dL [facility] Protein, Total 6.5 6.1 - 8.0 g/dL [facility] Albumin 3.7 3.2 - 5.2 g/dL [facility] Aspartate Aminotransferase 58(H) 0 - 30 unit/L [facility] Alanine Aminotransferase 66(H) 0 - 30 unit/L [facility] Alkaline Phosphatase 86 35 - 105 unit/L [facility] Bilirubin, Total 0.6 0.2 - 1.3 mg/dL [facility] Est Glomerular Filtration Rate 17(L) >=60 mL/min/1. 73 m?? [facility] Comment: This patient's estimated GFR was [...] Performing Organization Address [facility] Co de Phone Number [facility] [address] * Potassium (05/16/2023 11:15 PM EDT) Potassium 3.7 3.5 - 5.0 mmol/L [facility] Comment: Please note: ??Patients with WBC [...] Performing Organization Address [facility] Co de Phone Number [facility] [address] * Magnesium (05/16/2023 5:22 PM EDT) Magnesium 0.96 0.69 - 1.07 mmol/L [facility] Blood 05/16/2023 5:22 PM EDT 05/16/2023 5:27 PM EDT Narrative Resulting Agency Comment Spec In Lab Alirio Hudson MD CHEMISTRY ORDERABLE S Performing Organization Address [facility] Co de Phone Number [facility] [address] * (ABNORMAL) Basic Metabolic Panel (non-fasting) (05/16/2023 5:22 PM EDT) Glucose 106 65 - 199 mg/dL [facility] Comment:Diabetes: >=200 mg/d L plus symptoms Blood Urea Nitrogen 103(H) 8 - 18 mg/dL [facility] Creatinine 3.91(H) 0.70 - 1.20 mg/dL [facility] Comment:result rechecked-imm Sodium 132(L) 135 - 145 mmol/L [facility] Potassium 3.6 3.5 - 5.0 mmol/L [facility] Comment: Please note: ??Patients with WBC >100,000 may have falsely elevated Potassium levels. ??For accurate Potassium quantification in these patients send serum separator tube (gold top) for subsequent determinations. ??Contact the Clinical Chemistry Laboratory if there are any questions. Chloride 92(L) 98 - 107 mmol/L [facility] Carbon Dioxide 22 22 - 31 mmol/L [facility] Anion Gap 18(H) 5 - 15 mmol/L [facility] Calcium 9.7 8.5 - 10.5 mg/dL [facility] Est Glomerular Filtration Rate 12(L) >=60 mL/min/1. 73 m?? [facility] Comment: This patient's estimated GFR was [...] Lab Alirio Hudson MD CHEMISTRY ORDERABLE S [facility] [address] * (ABNORMAL) Potassium (05/16/2023 11:43 AM EDT) Potassium 3.3(L) 3.5 - 5.0 mmol/L [facility] Comment: Please note: ??Patients with WBC [...] MD CHEMISTRY ORDERABLE S Performing Organization Address City/[facility]/ZIP Co de Phone Number [facility] [address] * (ABNORMAL) Ferritin (05/16/2023 4:41 AM EDT) Ferritin 1,813(H) 30 - 400 ng/mL [facility] Comment: Pediatric reference ranges not verified at [facility], interpret with caution. Reference ranges for females greater than 50 years of age approach values for men, i.e., 30-400 ng/mL. Blood 05/16/2023 4:41 AM EDT 05/16/2023 4:54 AM EDT Narrative Resulting Agency Comment Spec In Lab Kristopher Ayoub MD CHEMISTRY ORDERABLES Performing Organization Address City/[facility]/ZIP Co de Phone Number [facility] [address] * (ABNORMAL) PTH (05/16/2023 4:41 AM EDT) [facility] Parathyroid Hormone 120(H) 15 - 65 pg/mL [facility] Blood 05/16/2023 4:41 AM EDT 05/16/2023 4:54 AM EDT Narrative Resulting Agency Comment Spec In Lab Kristopher Ayoub MD CHEMISTRY ORDERABLES Performing Organization Address City/[facility]/ZIP Co de Phone Number [facility] [address] * Vitamin D, 25-Hydroxy (05/16/2023 4:41 AM EDT) [facility] Vitamin D Total 25 OH 33 21 - 100 ng/mL [facility] Vit D Interp Sufficient [facility] Blood 05/16/2023 4:41 AM EDT 05/16/2023 4:54 AM EDT Narrative Resulting Agency Comment Spec In Lab Kristopher Ayoub MD CHEMISTRY ORDERABLES [facility] [place] [address] * (ABNORMAL) Blood Gas Venous ([facility]) (05/16/2023 4:22 AM EDT) pH, Venous 7.41 7.32 - 7.42 [facility] PCO2, Venous 32(L) 41 - 51 mmHg [facility] PO2, Venous 73(H) 25 - 40 mmHg [facility] Bicarbonate, Venous 19.6 mmol/L [facility] Base Excess, Venous -5.1 mmol/L [facility] Hgb Blood Gas 9.7(L) 11.7 - 15.5 g/dL [facility] Oxyhemoglobin, Venous 92.8 % [facility] Carboxyhemoglob in, Venous 0.1 % [facility] Comment: Nonsmokers: 0.5-1.5% COHB Smokers: Variable, but usually less than 10% Toxic: 20-30% COHB Lethal: Greater than 60% COHB Methemoglobin, Venous 0.3 <=1.5 % [facility] Na Whole Blood 130(L) 135 - 145 mmol/L [facility] K Whole Blood 3.7 3.5 - 5.0 mmol/L [facility] Comment: Please note: Patients with WBC >100,000 may have falsely elevated Potassium levels. Contact the Clinical Chemistry Laboratory if there are any questions. ICa Whole Blood 1.15 1.15 - 1.33 mmol/L [facility] Comment: Note: ??Total bilirubin higher than 20 mg/dL may lead to falsely low ionized calcium. CL Whole Blood 95(L) 98 - 107 mmol/L [facility] Gluc Whole Bld 82 65 - 199 mg/dL [facility] Comment:Diabetes: >=200 mg/d L plus symptoms Lactate WB 1.1 0.5 - 2.2 mmol/L [facility] Blood Gas Source Venous [facility] Blood Venous Draw / Unknown 05/16/2023 4:22 AM EDT 05/16/2023 4:31 AM EDT Narrative Resulting Agency Comment Spec In Lab Bonita TOBAR [place] [address] * (ABNORMAL) Differential, Automated (05/16/2023 4:20 AM EDT) Neutrophil % 84.1 % [facility] Neutrophil Absolute 6.22(H) 1.70 - 6.10 x10(3)/mc L [facility] Lymph % 5.8 % [facility] Lymphocytes Abs 0.4(L) 0.9 - 3.2 x10(3)/mc L [facility] Monocyte % 8.8 % [facility] Monocyte Abs 0.6 0.3 - 0.9 x10(3)/mc L [facility] Eos % 0.4 % [facility] Eosinophils Abs 0.0 0.0 - 0.4 x10(3)/mc L [facility] Basophil % 0.0 % [facility] Baso Absolute 0.0 0.0 - 0.1 x10(3)/mc L [facility] Immature Gran % 0.90 % [facility] Comment: Immature granulocytes(IG's)percentage and absolute count will include metamyelocytes, myelocytes, and promyelocytes. Blood smears from CBCs yielding IG's will be scanned manually for concordance. If this scan disagrees with the automated IG or if promyelocytes are noted, a manual differential will be performed. Immature Gran Absolute 0.07(H) 0.00 - 0.04 x10(3)/mc L [facility] Blood 05/16/2023 4:20 AM EDT 05/16/2023 4:29 AM EDT Narrative Resulting Agency Comment Spec In Lab James Agustin MD HEMATOLOGY ORDER JODIE Performing Organization Address City/[facility]/[place] [address] * (ABNORMAL) Hemogram (05/16/2023 4:20 AM EDT) White Blood Cell 7.4 4.0 - 9.5 x10(3)/mc L [facility] Red Blood Cell 2.40(L) 4.00 - 5.21 x10(6)/mc L [facility] Hemoglobin 7.8(L) 11.7 - 15.5 g/dL [facility] Hematocrit 22.5(L) 35.7 - 45.8 % [facility] Mean Cell Volume 93.8 82.6 - 94.4 fL [facility] Mean Cell Hemoglobin 32.5(H) 27.1 - 32.0 pg [facility] Mean Cell Hemoglobin Concentration 34.7 31.7 - 35.0 g/dL [facility] Platelet 120(L) 145 - 357 x10(3)/mc L [facility] RDW Standard Deviation 42.9 37.0 - 46.0 fL [facility] RDW coefficient of variation 12.9 11.5 - 14.1 % [facility] Mean Platelet Volume 11.3 7.6 - 12.9 fL [facility] NRBC% auto 0.7 % [facility] NRBC Absolute 0.050(H) 0.000 - 0.000 x10(3)/ L [facility] Blood 05/16/2023 4:20 AM EDT 05/16/2023 4:29 AM EDT Narrative Resulting Agency Comment Spec In Lab James Agustin MD HEMATOLOGY ORDER JODIE [facility] [address] * (ABNORMAL) Basic Metabolic Panel (non-fasting) (05/16/2023 4:20 AM EDT) Glucose 89 65 - 199 mg/dL [facility] Comment:Diabetes: >=200 mg/d L plus symptoms Blood Urea Nitrogen 108(H) 8 - 18 mg/dL [facility] Creatinine 4.74(H) 0.70 - 1.20 mg/dL [facility] Comment:result rechecked-OLIVA Sodium 132(L) 135 - 145 mmol/L [facility] Potassium 3.9 3.5 - 5.0 mmol/L [facility] Comment: Please note: ??Patients with WBC >100,000 may have falsely elevated Potassium levels. ??For accurate Potassium quantification in these patients send serum separator tube (gold top) for subsequent determinations. ??Contact the Clinical Chemistry Laboratory if there are any questions. Chloride 95(L) 98 - 107 mmol/L [facility] Carbon Dioxide 18(L) 22 - 31 mmol/L [facility] Anion Gap 19(H) 5 - 15 mmol/L [facility] Calcium 9.2 8.5 - 10.5 mg/dL [facility] Est Glomerular Filtration Rate 10(L) >=60 mL/min/1. 73 m?? [facility] Comment: This patient's estimated GFR was [...] Lab Alirio Hudson MD CHEMISTRY ORDERABLE S [facility] [address] * (ABNORMAL) Iron and TIBC (05/16/2023 4:20 AM EDT) Iron 31 30 - 150 mcg/dL [facility] TIBC 259 250 - 450 mcg/dL [facility] Iron Saturation 12(L) 20 - 50 % [facility] Blood 05/16/2023 4:20 AM EDT 05/16/2023 4:29 AM EDT Narrative Resulting Agency Comment Spec In Lab Kristopher Ayoub MD CHEMISTRY ORDERABLES [facility] [address] * (ABNORMAL) Basic Metabolic Panel (non-fasting) (05/15/2023 12:50 AM EDT) Glucose 101 65 - 199 mg/dL [facility] Comment:Diabetes: >=200 mg/d L plus symptoms Blood Urea Nitrogen 109(H) 8 - 18 mg/dL [facility] Creatinine 5.62(H) 0.70 - 1.20 mg/dL [facility] Comment:result rechecked-KS Sodium 131(L) 135 - 145 mmol/L [facility] Comment:result rechecked-KS Potassium 3.7 3.5 - 5.0 mmol/L [facility] Comment: result rechecked-KS Please note: ??Patients with WBC >100,000 may have falsely elevated Potassium levels. ??For accurate Potassium quantification in these patients send serum separator tube (gold top) for subsequent determinations. ??Contact the Clinical Chemistry Laboratory if there are any questions. Chloride 92(L) 98 - 107 mmol/L [facility] Comment:result rechecked-KS Carbon Dioxide 18(L) 22 - 31 mmol/L [facility] Comment:result rechecked-KS Anion Gap 21(H) 5 - 15 mmol/L [facility] Calcium 8.9 8.5 - 10.5 mg/dL [facility] Est Glomerular Filtration Rate 8(L) >=60 mL/min/1. 73 m?? [facility] Comment: This patient's estimated GFR was [...] MD CHEMISTRY ORDERABLE S Performing Organization Address City/[facility]/ZIP Co de Phone Number [facility] [address] * (ABNORMAL) Hemogram (05/15/2023 12:50 AM EDT) White Blood Cell 9.1 4.0 - 9.5 x10(3)/mc L [facility] Red Blood Cell 2.19(L) 4.00 - 5.21 x10(6)/mc L [facility] Hemoglobin 7.2(L) 11.7 - 15.5 g/dL [facility] Hematocrit 20.6(L) 35.7 - 45.8 % [facility] Mean Cell Volume 94.1 82.6 - 94.4 fL [facility] Mean Cell Hemoglobin 32.9(H) 27.1 - 32.0 pg [facility] Mean Cell Hemoglobin Concentration 35.0 31.7 - 35.0 g/dL [facility] Platelet 109(L) 145 - 357 x10(3)/mc L [facility] RDW Standard Deviation 43.6 37.0 - 46.0 fL [facility] RDW coefficient of variation 12.9 11.5 - 14.1 % [facility] Mean Platelet Volume 10.4 7.6 - 12.9 fL [facility] NRBC% auto 2.1 % [facility] NRBC Absolute 0.190(H) 0.000 - 0.000 x10(3)/mc L [facility] Blood 05/15/2023 12:5 0 AM EDT 05/15/2023 12:52 AM EDT Narrative Resulting Agency Comment Spec In Lab Alirio Hudson MD HEMATOLOGY ORDERABL ES Performing Organization Address [facility] Co de Phone Number [facility] [address] * (ABNORMAL) BLOOD GAS 2 VENOUS (05/15/2023 12:49 AM EDT) pH, Venous 7.33 7.32 - 7.42 [facility] PCO2, Venous 37(L) 41 - 51 mmHg [facility] PO2, Venous 34 25 - 40 mmHg [facility] Bicarbonate, Venous 19.1 mmol/L [facility] Base Excess, Venous -6.8 mmol/L [facility] Hgb Blood Gas 10.8(L) 11.7 - 15.5 g/dL [facility] Oxyhemoglobin, Venous 58.1 % [facility] Carboxyhemoglob in, Venous 0.3 % [facility] Comment: Nonsmokers: 0.5-1.5% COHB Smokers: Variable, but usually less than 10% Toxic: 20-30% COHB Lethal: Greater than 60% COHB Methemoglobin, Venous 0.6 <=1.5 % [facility] Na Whole Blood 136 135 - 145 mmol/L [facility] K Whole Blood 3.7 3.5 - 5.0 mmol/L [facility] Comment: Please note: Patients with WBC >100,000 may have falsely elevated Potassium levels. Contact the Clinical Chemistry Laboratory if there are any questions. ICa Whole Blood 1.12(L) 1.15 - 1.33 mmol/L [facility] Comment: Note: ??Total bilirubin higher than 20 mg/dL may lead to falsely low ionized calcium. CL Whole Blood 95(L) 98 - 107 mmol/L [facility] Gluc Whole Bld 101 65 - 199 mg/dL [facility] Comment:Diabetes: >=200 mg/d L plus symptoms Lactate WB 1.3 0.5 - 2.2 mmol/L [facility] Flow, Mike 1.0 LPM [facility] Blood Gas Source Venous [facility] Blood 05/15/2023 12:4 9 AM EDT 05/15/2023 12:49 AM EDT Alirio Hudson MD POINT OF CARE TEST ORDERABLES [facility] [place] [address] * US Retroperitoneal Complete (05/14/2023 3:53 PM [...] Robledo MD, [facility] ([phone]), at 05/14/2023 4:32 PM Thank you for letting us participate in the care of this patient. If you are a health care provider and have any questions regarding this report, please contact the number above. For patients who have questions, please contact the health rn complex care that requested your imaging first. ? Hayden Robledo, Staff Physician Electronically Signed Final Report ?? 05/14/2023 04:39 pm Narrative 05/14/2023 4:39 PM EDT Renal ? (Signed Final 05/14/2023 04:39 pm) PATIENT INFO: ID #: ? [id number] ?: ??[birth year] (67 yrs)(F) Name: ? PURNIMA THACKER ?Visit Date: 05/14/2023 03:44 pm PERFORMED BY: Attending: ?Meena CULP, Hayden Stafford Resident: ? Nell CULP, Anand August Performed By: ? Consuelo Tello RDMS Referred By: ?ALIRIO HUDSON Location: ? [place] SERVICE(S) PROVIDED: URETRO - Retroperitoneal Complete - [id number] ? [id number] INDICATIONS: EVANS COMPARISON: CT: Abdomen/Pelvis 05/11/23 RIGHT [...] 05/14/2023 04:39 pm) PATIENT INFO: ID #: [id number] : 55 (67 yrs)(F) Name: PURNIMA THACKER Visit Date: 05/14/2023 03:44 pm PERFORMED BY: Attending: Hayden Robledo MD Resident: Anand Camejo MD Performed By: Consuelo Tello RDMS Referred By: ALIRIO HUDSON Location: [place] SERVICE(S) PROVIDED: URETRO - Retroperitoneal Complete - [id number] INDICATIONS: EVANS COMPARISON: CT: Abdomen/Pelvis 05/11/23 RIGHT [...] Robledo MD, [facility] ([phone]), at 05/14/2023 4:32 PM Thank you for letting us participate in the care of this patient. If you are a health care provider and have any questions regarding this report, please contact the number above. For patients who have questions, please contact the health rn complex care that requested your imaging first. Hayden Robledo, Staff Physician Electronically Signed Final Report 05/14/2023 04:39 pm Alirio Hudson MD IMG US GEN ORDERABL ES * CK (05/14/2023 3:17 PM EDT) Creatine Kinase 123 0 - 160 unit/L [facility] Blood 05/14/2023 3:17 PM EDT 05/14/2023 3:31 PM EDT Narrative Resulting Agency Comment Spec In Lab Alirio Hudson MD CHEMISTRY ORDERABLE S Performing Organization Address [facility] Co de Phone Number [facility] [address] * (ABNORMAL) Uric acid (05/14/2023 3:17 PM EDT) Uric Acid 14.9(H) 2.5 - 6.5 mg/dL [facility] Blood 05/14/2023 3:17 PM EDT 05/14/2023 3:31 PM EDT Narrative Resulting Agency Comment Spec In Lab Alirio Hudson MD CHEMISTRY ORDERABLE S Performing Organization Address [facility] [place] [address] * (ABNORMAL) Osmolality (05/14/2023 3:17 PM EDT) Osmolality 311(H) 275 - 295 mOsm/kg [facility] Blood 05/14/2023 3:17 PM EDT 05/14/2023 3:31 PM EDT Narrative Resulting Agency Comment Spec In Lab Alirio Hudson MD [place] [address] * (ABNORMAL) Differential, Automated (05/14/2023 1:10 AM EDT) Pathologist [facility] Neutrophil % 87.2 % [facility] Neutrophil Absolute 9.74(H) 1.70 - 6.10 x10(3)/mc L [facility] Lymph % 3.9 % [facility] Lymphocytes Abs 0.4(L) 0.9 - 3.2 x10(3)/mc L [facility] Monocyte % 7.9 % [facility] Monocyte Abs 0.9 0.3 - 0.9 x10(3)/mc L [facility] Eos % 0.0 % [facility] Eosinophils Abs 0.0 0.0 - 0.4 x10(3)/mc L [facility] Basophil % 0.1 % [facility] Baso Absolute 0.0 0.0 - 0.1 x10(3)/mc L [facility] Immature Gran % 0.90 % [facility] Comment: Immature granulocytes(IG's)percentage and absolute count will include metamyelocytes, myelocytes, and promyelocytes. Blood smears from CBCs yielding IG's will be scanned manually for concordance. If this scan disagrees with the automated IG or if promyelocytes are noted, a manual differential will be performed. Immature Gran Absolute 0.10(H) 0.00 - 0.04 x10(3)/mc L [facility] Blood 05/14/2023 1:10 AM EDT 05/14/2023 1:24 AM EDT Narrative Resulting Agency Comment Spec In Lab Bonita TOBAR HEMATOLOGY ORDERABLE S [facility] [address] * (ABNORMAL) Hemogram (05/14/2023 1:10 AM EDT) White Blood Cell 11.2(H) 4.0 - 9.5 x10(3)/mc L [facility] Red Blood Cell 2.19(L) 4.00 - 5.21 x10(6)/mc L [facility] Hemoglobin 7.2(L) 11.7 - 15.5 g/dL [facility] Hematocrit 20.3(L) 35.7 - 45.8 % [facility] Mean Cell Volume 92.7 82.6 - 94.4 fL [facility] Mean Cell Hemoglobin 32.9(H) 27.1 - 32.0 pg [facility] Mean Cell Hemoglobin Concentration 35.5(H) 31.7 - 35.0 g/dL [facility] Platelet 112(L) 145 - 357 x10(3)/mc L [facility] RDW Standard Deviation 41.4 37.0 - 46.0 fL [facility] RDW coefficient of variation 12.5 11.5 - 14.1 % [facility] Mean Platelet Volume 10.4 7.6 - 12.9 fL [facility] NRBC% auto 1.5 % [facility] NRBC Absolute 0.170(H) 0.000 - 0.000 x10(3)/mc L [facility] Blood 05/14/2023 1:10 AM EDT 05/14/2023 1:24 AM EDT Narrative Resulting Agency Comment Spec In Lab Bonita TOBAR HEMATOLOGY ORDERABLE S [facility] [address] * (ABNORMAL) Comprehensive metabolic panel (non-fasting) (05/14/2023 1:10 AM EDT) Glucose 120 65 - 199 mg/dL [facility] Comment:Diabetes: >=200 mg/d L plus symptoms Blood Urea Nitrogen 98(H) 8 - 18 mg/dL [facility] Creatinine 4.80(H) 0.70 - 1.20 mg/dL [facility] Comment:result rechecked-ssc Sodium 132(L) 135 - 145 mmol/L [facility] Potassium 4.1 3.5 - 5.0 mmol/L [facility] Comment: Please note: ??Patients with WBC >100,000 may have falsely elevated Potassium levels. ??For accurate Potassium quantification in these patients send serum separator tube (gold top) for subsequent determinations. ??Contact the Clinical Chemistry Laboratory if there are any questions. Chloride 94(L) 98 - 107 mmol/L [facility] Carbon Dioxide 18(L) 22 - 31 mmol/L [facility] Anion Gap 20(H) 5 - 15 mmol/L [facility] Calcium 8.5 8.5 - 10.5 mg/dL [facility] Protein, Total 5.8(L) 6.1 - 8.0 g/dL [facility] Albumin 3.6 3.2 - 5.2 g/dL [facility] Aspartate Aminotransferase 319(H) 0 - 30 unit/L [facility] Alanine Aminotransferase 437(H) 0 - 30 unit/L [facility] Alkaline Phosphatase 86 35 - 105 unit/L [facility] Bilirubin, Total 0.4 0.2 - 1.3 mg/dL [facility] Est Glomerular Filtration Rate 9(L) >=60 mL/min/1. 73 m?? [facility] Comment: This patient's estimated GFR was [...] Performing Organization Address [facility] Co de Phone Number [facility] [address] * APTT (05/13/2023 10:15 AM EDT) Partial Thromboplastin Time 27 25 - 37 sec [facility] Comment: The PTT is NOT appropriate for heparin monitoring. Use the Anti-Xa level for heparin monitoring (HEP UFH) or LMWH monitoring (HEP LMW). A PTT less than 37 seconds generally indicates adequate hemostasis. Blood 05/13/2023 10:1 5 AM EDT 05/13/2023 10:46 AM EDT Narrative Resulting Agency Comment Spec In Lab Alirio Hudson MD HEMATOLOGY ORDERABL ES Performing Organization Address [facility] Co de Phone Number [facility] [address] * (ABNORMAL) Prothrombin Time (05/13/2023 10:15 AM EDT) Prothrombin Time 14.6(H) 9.4 - 12.5 sec [facility] International Normalization Ratio 1.3 [facility] Comment: An INR <2.0 indicates adequate [...] Performing Organization Address [facility] Co de Phone Number [facility] [address] * EKG 12 Lead (05/13/2023 9:22 AM EDT) Pathologist [facility] Ventricular rate 92 BPM MUSE SYSTEM Atrial Rate 92 BPM MUSE SYSTEM P-R Interval 140 ms MUSE SYSTEM QRS Duration 104 ms MUSE SYSTEM Q-T Interval 384 ms MUSE SYSTEM QTC Calculated (Bezet) 474 ms MUSE SYSTEM Calculated P [place] 33 degrees MUSE SYSTEM Calculated R [place] 41 degrees MUSE SYSTEM Calculated T [place] -35 degrees MUSE SYSTEM INTERPRETATION Sinus rhythm with frequent Premature ventricular complexes Septal infarct , age undetermined ST & T wave abnormality, consider lateral ischemia Abnormal ECG When compared with ECG of 12-MAY-2023 10:10, Premature ventricular complexes are now Present I personally reviewed the tracing and edited the fellows interpretation Confirmed by fellow MD Anitha, Carissa ([id number]) on 05/13/2023 3:25:30 PM Confirmed by Maxx Best ([id number]) on 05/13/2023 8:30:56 PM MUSE SYSTEM 05/13/2023 9:22 AM EDT 05/13/2023 8:30 PM EDT Alirio Hudson MD ECG ORDERABLES MUSE SYSTEM * (ABNORMAL) Differential, Automated (05/13/2023 1:15 AM EDT) [facility] Neutrophil % 88.1 % [facility] Neutrophil Absolute 7.62(H) 1.70 - 6.10 x10(3)/mc L [facility] Lymph % 3.1 % [facility] Lymphocytes Abs 0.3(L) 0.9 - 3.2 x10(3)/mc L [facility] Monocyte % 7.9 % [facility] Monocyte Abs 0.7 0.3 - 0.9 x10(3)/mc L [facility] Eos % 0.0 % [facility] Eosinophils Abs 0.0 0.0 - 0.4 x10(3)/mc L [facility] Basophil % 0.1 % [facility] Baso Absolute 0.0 0.0 - 0.1 x10(3)/mc L [facility] Immature Gran % 0.80 % [facility] Comment: Immature granulocytes(IG's)percentage and absolute count will include metamyelocytes, myelocytes, and promyelocytes. Blood smears from CBCs yielding IG's will be scanned manually for concordance. If this scan disagrees with the automated IG or if promyelocytes are noted, a manual differential will be performed. Immature Gran Absolute 0.07(H) 0.00 - 0.04 x10(3)/mc L [facility] Blood 05/13/2023 1:15 AM EDT 05/13/2023 1:29 AM EDT Narrative Resulting Agency Comment Spec In Lab Lorri TOBAR HEMATOLOGY ORDERABLE S [facility] [place] [address] * (ABNORMAL) Hemogram (05/13/2023 1:15 AM EDT) White Blood Cell 8.6 4.0 - 9.5 x10(3)/[facility] Red Blood Cell 2.37(L) 4.00 - 5.21 x10(6)/[facility] Hemoglobin 7.8(L) 11.7 - 15.5 g/dL [facility] Hematocrit 22.2(L) 35.7 - 45.8 % [facility] Mean Cell Volume 93.7 82.6 - 94.4 fL [facility] Mean Cell Hemoglobin 32.9(H) 27.1 - 32.0 pg [facility] Mean Cell Hemoglobin Concentration 35.1(H) 31.7 - 35.0 g/dL [facility] Platelet 130(L) 145 - 357 x10(3)/[facility] RDW Standard Deviation 41.7 37.0 - 46.0 fL [facility] RDW coefficient of variation 12.5 11.5 - 14.1 % [facility] Mean Platelet Volume 10.2 7.6 - 12.9 fL [facility] NRBC% auto 0.5 % [facility] NRBC Absolute 0.040(H) 0.000 - 0.000 x10(3)/ L [facility] Blood 05/13/2023 1:15 AM EDT 05/13/2023 1:29 AM EDT Narrative Resulting Agency Comment Spec In Lab Lorri TOBAR HEMATOLOGY ORDERABLE S Performing Organization Address City/[facility]/ZIP Co de Phone Number [facility] [address] * (ABNORMAL) Hepatic Function Panel (05/13/2023 1:15 AM EDT) Protein, Total 5.5(L) 6.1 - 8.0 g/dL [facility] Albumin 3.0(L) 3.2 - 5.2 g/dL [facility] Aspartate Aminotransferase 792(H) 0 - 30 unit/L [facility] Alanine Aminotransferase 903(H) 0 - 30 unit/L [facility] Alkaline Phosphatase 85 35 - 105 unit/L [facility] Bilirubin, Total 0.5 0.2 - 1.3 mg/dL [facility] Bilirubin, Direct 0.3 0.0 - 0.3 mg/dL [facility] Blood 05/13/2023 1:15 AM EDT 05/13/2023 1:29 AM EDT Narrative Resulting Agency Comment Spec In Lab Alirio Hudson MD CHEMISTRY ORDERABLE S Performing Organization Address [facility] Co de Phone Number [facility] [address] * (ABNORMAL) Basic Metabolic Panel (non-fasting) (05/13/2023 1:15 AM EDT) Glucose 107 65 - 199 mg/dL [facility] Comment:Diabetes: >=200 mg/d L plus symptoms Blood Urea Nitrogen 82(H) 8 - 18 mg/dL [facility] Creatinine 3.15(H) 0.70 - 1.20 mg/dL [facility] Comment:result rechecked-OG Sodium 132(L) 135 - 145 mmol/L [facility] Potassium 3.8 3.5 - 5.0 mmol/L [facility] Comment: Please note: ??Patients with WBC >100,000 may have falsely elevated Potassium levels. ??For accurate Potassium quantification in these patients send serum separator tube (gold top) for subsequent determinations. ??Contact the Clinical Chemistry Laboratory if there are any questions. Chloride 95(L) 98 - 107 mmol/L [facility] Carbon Dioxide 20(L) 22 - 31 mmol/L [facility] Anion Gap 17(H) 5 - 15 mmol/L [facility] Calcium 8.3(L) 8.5 - 10.5 mg/dL [facility] Est Glomerular Filtration Rate 16(L) >=60 mL/min/1. 73 m?? [facility] Comment: This patient's estimated GFR was [...] Lab Alirio Hudson MD CHEMISTRY ORDERABLE S [facility] [place] [address] * (ABNORMAL) BLOOD GAS 2 ARTERIAL (05/12/2023 3:57 PM EDT) pH, Arterial 7.39 7.35 - 7.45 [facility] PCO2, Arterial 33(L) 35 - 45 mmHg [facility] PO2, Arterial 101 85 - 104 mmHg [facility] Bicarbonate, Arterial 19.5(L) 20.0 - 26.0 mmol/L [facility] [facility] Base Excess, Arterial -5.5(L) -3.0 - 3.0 mmol/L [facility] Hgb Blood Gas 9.8(L) 11.7 - 15.5 g/dL [facility] Oxyhemoglobin, Arterial 95.2 94.0 - 97.0 % [facility] Carboxyhemoglob in, Arterial 0.2 % [facility] Comment: Nonsmokers: 0.5-1.5% COHB Smokers: Variable, but usually less than 10% Toxic: 20-30% COHB Lethal: Greater than 60% COHB Methemoglobin, Arterial 0.8 <=1.5 % [facility] Na Whole Blood 129(L) 135 - 145 mmol/L [facility] K Whole Blood 3.8 3.5 - 5.0 mmol/L [facility] Comment: Please note: Patients with WBC >100,000 may have falsely elevated Potassium levels. Contact the Clinical Chemistry Laboratory if there are any questions. ICa Whole Blood 1.05(L) 1.15 - 1.33 mmol/L [facility] Comment: Note: ??Total bilirubin higher than 20 mg/dL may lead to falsely low ionized calcium. CL Whole Blood 96(L) 98 - 107 mmol/L [facility] Gluc Whole Bld 178 65 - 199 mg/dL [facility] Comment:Diabetes: >=200 mg/d L plus symptoms. Lactate WB 1.5 0.5 - 2.2 mmol/L [facility] FIO2 Art 40 % [facility] PF Ratio Art 252 [facility] Blood 05/12/2023 3:57 PM EDT 05/12/2023 3:57 PM EDT Alirio Hudson MD POINT OF CARE TEST ORDERABLES Performing Organization Address City/State/[facility] Co de Phone Number [facility] [address] * (ABNORMAL) Coox2 (05/12/2023 2:25 PM EDT) pO2, Coox 37 mmHg [facility] Hgb Blood Gas 9.5(L) 11.7 - 15.5 g/dL [facility] Oxyhemoglobin, Coox 59.9 % [facility] Carboxyhemoglo bin, Coox 0.3 % [facility] Comment: Nonsmokers: 0.5-1.5% COHB Smokers: Variable, but usually less than 10% Toxic: 20-30% COHB Lethal: Greater than 60% COHB Methemoglobin, Coox 0.7 <=1.5 % [facility] Source Coox Mixed Venous [facility] Blood 05/12/2023 2:25 PM EDT 05/12/2023 2:25 PM EDT Alirio Hudson MD POINT OF CARE TEST ORDERABLES [facility] [address] [place] [address] * (ABNORMAL) BLOOD GAS 2 ARTERIAL (05/12/2023 2:23 PM EDT) pH, Arterial 7.37 7.35 - 7.45 [facility] PCO2, Arterial 36 35 - 45 mmHg [facility] PO2, Arterial 102 85 - 104 mmHg [facility] Bicarbonate, Arterial 20.4 20.0 - 26.0 mmol/L [facility] Base Excess, Arterial -4.8(L) -3.0 - 3.0 mmol/L [facility] Hgb Blood Gas 12.7 11.7 - 15.5 g/dL [facility] Oxyhemoglobin, Arterial 95.4 94.0 - 97.0 % [facility] Carboxyhemoglob in, Arterial 0.3 % [facility] Comment: Nonsmokers: 0.5-1.5% COHB Smokers: Variable, but usually less than 10% Toxic: 20-30% COHB Lethal: Greater than 60% COHB Methemoglobin, Arterial 0.7 <=1.5 % [facility] Na Whole Blood 129(L) 135 - 145 mmol/L [facility] K Whole Blood 3.7 3.5 - 5.0 mmol/L [facility] Comment: Please note: Patients with WBC >100,000 may have falsely elevated Potassium levels. Contact the Clinical Chemistry Laboratory if there are any questions. ICa Whole Blood 1.05(L) 1.15 - 1.33 mmol/L [facility] Comment: Note: ??Total bilirubin higher than 20 mg/dL may lead to falsely low ionized calcium. CL Whole Blood 95(L) 98 - 107 mmol/L [facility] Gluc Whole Bld 168 65 - 199 mg/dL [facility] Comment:Diabetes: >=200 mg/d L plus symptoms. Lactate WB 1.8 0.5 - 2.2 mmol/L [facility] FIO2 Art 40 % [facility] PF Ratio Art 255 [facility] Blood 05/12/2023 2:23 PM EDT 05/12/2023 2:23 PM EDT Alirio Hudson MD POINT OF CARE TEST ORDERABLES [facility] [address] * (ABNORMAL) Troponin (05/12/2023 2:05 PM EDT) Troponin-T, High Sensitivity 1,022(H) <=14 ng/L [facility] Comment: This patient's troponin T concentration [...] can be found in the [facility] Test Catalog Troponin - [facility] Test Catalog Reference: [place] Definition of Myocardial Infarction. Journal of the [place] [employer] 2018;72:9636-2843 Blood 05/12/2023 2:05 PM EDT 05/12/2023 2:14 PM EDT Narrative Resulting Agency Comment Spec In Lab Alirio Hudson MD CHEMISTRY ORDERABLE S Performing Organization Address City/[facility]/ZIP Co de Phone Number [facility] [address] * (ABNORMAL) Hemoglobin (05/12/2023 2:05 PM EDT) Hemoglobin 8.5(L) 11.7 - 15.5 g/dL [facility] Blood 05/12/2023 2:05 PM EDT 05/12/2023 2:14 PM EDT Narrative Resulting Agency Comment Spec In Lab Alirio Hudson MD HEMATOLOGY ORDERABL ES Performing Organization Address [facility] Co de Phone Number [facility] [address] * Potassium (05/12/2023 2:05 PM EDT) Potassium 3.9 3.5 - 5.0 mmol/L [facility] Comment: Please note: ??Patients with WBC [...] Performing Organization Address [facility] Co de Phone Number [facility] [address] * (ABNORMAL) BLOOD GAS 2 ARTERIAL (05/12/2023 11:05 AM EDT) pH, Arterial 7.34(L) 7.35 - 7.45 [facility] PCO2, Arterial 42 35 - 45 mmHg [facility] PO2, Arterial 73(L) 85 - 104 mmHg [facility] Bicarbonate, Arterial 22.1 20.0 - 26.0 mmol/L [facility] Base Excess, Arterial -3.6(L) -3.0 - 3.0 mmol/L [facility] Hgb Blood Gas 9.3(L) 11.7 - 15.5 g/dL [facility] Oxyhemoglobin, Arterial 89.3(L) 94.0 - 97.0 % [facility] Carboxyhemoglob in, Arterial 0.2 % [facility] Comment: Nonsmokers: 0.5-1.5% COHB Smokers: Variable, but usually less than 10% Toxic: 20-30% COHB Lethal: Greater than 60% COHB Methemoglobin, Arterial 0.9 <=1.5 % [facility] Na Whole Blood 131(L) 135 - 145 mmol/L [facility] K Whole Blood 3.8 3.5 - 5.0 mmol/L [facility] Comment: Please note: Patients with WBC >100,000 may have falsely elevated Potassium levels. Contact the Clinical Chemistry Laboratory if there are any questions. ICa Whole Blood 1.04(L) 1.15 - 1.33 mmol/L [facility] Comment: Note: ??Total bilirubin higher than 20 mg/dL may lead to falsely low ionized calcium. CL Whole Blood 96(L) 98 - 107 mmol/L [facility] Gluc Whole Bld 152 65 - 199 mg/dL [facility] Comment:Diabetes: >=200 mg/d L plus symptoms. Lactate WB 2.8(H) 0.5 - 2.2 mmol/L [facility] FIO2 Art 40 % [facility] PF Ratio Art 182 [facility] Blood 05/12/2023 11:0 5 AM EDT 05/12/2023 11:05 AM EDT Alirio Hudson MD POINT OF CARE TEST ORDERABLES [facility] [place] [address] * (ABNORMAL) BLOOD GAS 2 ARTERIAL (05/12/2023 10:14 AM EDT) pH, Arterial 7.18(Criti gabrielle) 7.35 - 7.45 [facility] Comment:Noted by hearing instrument specialist. PCO2, Arterial 45 35 - 45 mmHg [facility] PO2, Arterial 186(H) 85 - 104 mmHg [facility] Bicarbonate, Arterial 16.2(L) 20.0 - 26.0 mmol/L [facility] Base Excess, Arterial -12.2(L) -3.0 - 3.0 mmol/L [facility] Hgb Blood Gas 10.0(L) 11.7 - 15.5 g/dL [facility] Oxyhemoglobin, Arterial 97.0 94.0 - 97.0 % [facility] Carboxyhemoglob in, Arterial 0.2 % [facility] Comment: Nonsmokers: 0.5-1.5% COHB Smokers: Variable, but usually less than 10% Toxic: 20-30% COHB Lethal: Greater than 60% COHB Methemoglobin, Arterial 0.9 <=1.5 % [facility] Na Whole Blood 129(L) 135 - 145 mmol/L [facility] K Whole Blood 3.6 3.5 - 5.0 mmol/L [facility] Comment: Please note: Patients with WBC >100,000 may have falsely elevated Potassium levels. Contact the Clinical Chemistry Laboratory if there are any questions. ICa Whole Blood 1.10(L) 1.15 - 1.33 mmol/L [facility] Comment: Note: ??Total bilirubin higher than 20 mg/dL may lead to falsely low ionized calcium. CL Whole Blood 97(L) 98 - 107 mmol/L [facility] Gluc Whole Bld 161 65 - 199 mg/dL [facility] Comment:Diabetes: >=200 mg/d L plus symptoms. Lactate WB 3.3(H) 0.5 - 2.2 mmol/L [facility] FIO2 Art 100 % [facility] PF Ratio Art 186 [facility] Blood 05/12/2023 10:1 4 AM EDT 05/12/2023 10:14 AM EDT Alirio Hudson MD POINT OF CARE TEST ORDERABLES [facility] [place] [address] * EKG 12 Lead (05/12/2023 10:10 AM EDT) Ventricular rate 116 BPM MUSE SYSTEM Atrial Rate 116 BPM MUSE SYSTEM P-R Interval 158 ms MUSE SYSTEM QRS Duration 114 ms MUSE SYSTEM Q-T Interval 348 ms MUSE SYSTEM QTC Calculated (Bezet) 483 ms MUSE SYSTEM Calculated P [place] 37 degrees MUSE SYSTEM Calculated R [place] 31 degrees MUSE SYSTEM Calculated T [place] -138 degrees MUSE SYSTEM INTERPRETATION Sinus tachycardia [...] interpretation Confirmed by fellow MD Anuja, Jim ([id number]) on 05/12/2023 1:04:20 PM Confirmed by MD Mono, Eleni ([id number]) on 05/12/2023 9:28:34 PM MUSE SYSTEM 05/12/2023 [...] who have questions please contact the health rn complex care that requested your imaging first. ? Electronically signed by: Chyna Johnson MD, [facility] ??([phone]), at 05/12/2023 10:08 AM Narrative 05/12/2023 10:08 AM EDT EXAMINATION: XR CHEST ONE VIEW CLINICAL HISTORY: Post TAVR TECHNIQUE: 1 view of the chest COMPARISON: Chest radiograph from earlier today FINDINGS: Interval placement of endotracheal tube with tip terminating 2 cm above the shira. Interval placement of enteric tube projecting along the expected course of the esophagus and outside the [id number]-sr-prhr. Interval retraction of right IJ approach pulmonary [...] expected course ofthe esophagus and outside the rvtga-xl-txvz. Interval retraction of right IJ approach pulmonary [...] patients who have questions please contactthe health rn complex care that requested your imaging first. Electronically signed by: Chyna Johnson MD, [facility]([phone]), at 05/12/2023 10:08 AM Alirio Hudson MD [...] 1955 ? Height: 154 cm ? Account: [id number] Age: 67 yrs ? Weight: 75 kg Gender: Female ?BSA: 1.7 m2 Ordering Physician: RADHA HOLLINS Referring Physician: RADHA HOLLINS Performed By: Dilma Bee RDCS Reason For Study: Guidance for TAVR procedure Exam Location: [facility]. Interpretation Summary PRE TAVR: There [...] mL/m2. POST TAVR: Normal function of the gpjhp-sf-pigwa prosthesis. See below for hemodynamic parameters. Slight improvement in left and right ventricular systolic function. LVEF now 20-25%. No pericardial effusion. See report for additional findings. Procedure Limited - 45944. Doppler - 13017. Color Doppler - 37154. Left Ventricle Left ventricle is of normal [...] 307:33 AMBP: 96/63 mmHg Patient Location: [address] : 1955 Height: 154 cm Account: [id number] Age: 67 yrs Weight: 75 kg Gender: Female BSA: 1.7 m2 Ordering Physician: RADHA HOLLINS Referring Physician: RADHA HOLLINS Performed By: Dilma Bee RDCS Reason For Study: Guidance for TAVR procedure Exam Location: [facility]. Interpretation Summary PRE TAVR: There [...] 28mL/m2. POST TAVR: Normal function of the zzcka-zg-uknvk prosthesis. See belowfor hemodynamic parameters. Slight improvement in left and right ventricularsystolic function. LVEF now 20-25%. No pericardial effusion. See report for additional findings. Procedure Limited - 55560. Doppler - 32438. Color Doppler - 27568. Left Ventricle Left ventricle is of normal [...] Other Narrative 05/12/2023 2:37 PM EDT ?[facility] ? Cardiac Catheterization/Intervention Report ? Patient Name: Kirstie, Purnima M. ? Procedure Date: 05/12/2023 ? A #: [id number] ? Primary Physician: Zachary, Antelmo N ? Case #: [id number] ? File Name: [id number] ? Catheterization Order Number: [id number] ? [facility] ? Final Report [place], [place] ? Patient Name: ? Purnima M. Kirstie ? ID#: ?[id number] ? : ?1955 ? Procedure Date: ? May 12, 2023 ? Case #: ? [id number] ? Room: ? 6 ? Case Physicians: ?Antelmo Sharma M.D. ?Start: ?08:03 ?Alirio Hudson M.D. ?Admission: ??05/08/2023 ?Lynda Mcgowan M.D. ? Discharge: ??05/22/2023 ?Fellow: ? Emad Adair Tejeda ? Referring Physician: ??Mario Alberto Chin M.D. ? Procedures: ?* Coronary Angiography ?* Left Heart Catheterization ?* Coronary Stent Insertion ?* Transcatheter Aortic Valve Replacement ?* Vascular Closure Device Deployment ?* Temporary Pacemaker Insertion In [employer] Safety Inspector ?* Endotracheal Intubation By Non-Cath Physician ?* [...] guide. ??A premounted 4.00 x 30 mm [place] (MINNA) was ? deployed with a maximum [...] calculated STS risk score was 30.1%. A qwwfx-iv-pqkqd ?procedure was performed on the pre-existing bioprosthetic stented ?prosthesis. The priority of the emdkk-ec-tieeq procedure was Elective. ?The procedure was performed [...] Lai 3 Ultra RESILIA 23 mm THV (s/m=[id number]) transcatheter ?valve was inserted using standard technique. [...] nor was it given in the ?cathode ray tube assembler. ?Recommended anti-platelet/anti-thrombotic regimen: ?Continue aspirin 81 mg daily for indefinitely. ?These recommendations are made at the time of the intervention. Patient ?and provider preferences or a changing clinical situation may require ?modification of this regimen. Consult [facility] Interventional Cardiology for ?questions. ? [...] regimen. ? Comments: ?Successful right transfemoral TAVR Xhykz-bb-Qclym with a 23 mm Lai 3 ?THV. [...] access site angiography, ?temporary pacemaker in cathode ray tube assembler, intubation-non cath physician, vascular ?closure device, transthoracic echo ??and TAVR. Dr. Alirio Hudson M.D. ?performed the left heart catheterization, access site angiography, ?temporary pacemaker in cathode ray tube assembler, vascular closure device, transthoracic ?echo , TAVR and CPR during cath. Dr. Lynda Mcgowan M.D. performed the ABG, ?anesthesia and intubation-non cath physician. ? Antelmo Sharma M.D. ? Electronically Signed by: Antelmo Sharma M.D. ? Report Finalized: 05/12/2023 ??14:31 ? Report Last Ammended: 07/01/2023 ??11:30 ? Procedure Note Antelmo Sharma MD - 07/01/2023 [facility] Cardiac Catheterization/Intervention Report Patient Name: KirstiePurnima Procedure Date: 05/12/2023 A #: [id number] Primary Physician: Antelmo Sharma Case #: [id number] File Name: [id number] Catheterization Order Number: [id number] [facility] FinalReport [place], [place] Patient Name: Purnima Thacker ID#:[id number] :1955 Procedure Date: May 12, 2023 Case #: [id number] Room: 6 Case Physicians: Antelmo Sharma M.D. Start: 08:03 Alirio Hudson M.D. Admission:05/08/2023 Lynda Mcgowan M.D. Discharge:05/22/2023 Fellow: Rebekah Tejeda M.D. Referring Physician: Mario Alberto Chin M.D. Procedures: * Coronary Angiography * Left Heart Catheterization * Coronary Stent Insertion * Transcatheter Aortic Valve Replacement * Vascular Closure Device Deployment * Temporary Pacemaker Insertion In Aviation Safety Inspector * Endotracheal Intubation By Non-Cath Physician * [...] A premounted 4.00 x 30 mm [place] (MINNA) was deployed with a maximum inflation [...] calculated STS risk score was 30.1%. A xpmri-sh-nqwum procedure was performed on the pre-existing bioprosthetic stented prosthesis. The priority of the gofst-uz-anqzd procedure wasElective. The procedure was performed under Moderate sedation performed byLynda Mcgowan M.D. (see anesthesia report for additional details). Alirio Hudson M.D. participated in the case (see Cardiac Surgery reportfor additional details). The TAVR sheath was a 14 Fr Corona eSheath Introducer and theaccess site was femoral. Rapid ventricular pacing was performed. An Corona Lai 3 Ultra RESILIA 23 mm THV (s/u=[id number])transcatheter valve was inserted using standard technique. The [...] to nor was it given inthe cathode ray tube assembler. Recommended anti-platelet/anti-thrombotic regimen: Continue aspirin 81 mg daily for indefinitely. These recommendations are made at the time of the intervention.Patient and provider preferences or a changing clinical situation mayrequire modification of this regimen. Consult [facility] Interventional Cardiologyfor questions. Conclusions: * [...] this regimen. Comments: Successful right transfemoral TAVR Qrtmk-ry-Nfayk with a 23 mmSapien 3 THV. We [...] access site angiography, temporary pacemaker in cathode ray tube assembler, intubation-non cath physician,vascular closure device, transthoracic echo and TAVR. Dr. Alirio Hudson M.D. performed the left heart catheterization, access site angiography, temporary pacemaker in cathode ray tube assembler, vascular closure device,transthoracic echo , TAVR and [...] pH, POC 7.20(Crit ical) 7.35 - 7.45 [facility] Comment:Critical value OKYamel C Lab. pCO2, POC 42 35 - 45 mmHg [facility] pO2, POC 260(H) 85 - 104 mmHg [facility] Base Excess, POC -11.0(L) -3.0 - 3.0 mmol/L [facility] Bicarbonate, POC 16.7(L) 20.0 - 26.0 mmol/L [facility] Sodium, POC 129(L) 135 - 145 mmol/L [facility] POC Potassium 3.8 3.5 - 5.0 mmol/L [facility] Ionized Calcium, POC 1.12(L) 1.15 - 1.33 mmol/L [facility] POC Hematocrit 23.0(L) 34.0 - 45.0 % [facility] POC Calc Hgb 7.8(L) 11.2 - 15.7 g/dL [facility] Comment:The calculation of h emoglobin from hematocrit assumes a normal MCHC. POC Bgas Loc CC Lab [facility] Blood 05/12/2023 8:50 AM EDT 05/13/2023 12:00 PM EDT Alirio Hudson MD CHEMISTRY ORDERABLE S Performing Organization Address City/State/[facility] Co de Phone Number [facility] [address] * (ABNORMAL) Point of Care Blood Gas Historical (05/12/2023 8:10 AM EDT) pH, POC 7.27(Crit ical) 7.35 - 7.45 [facility] Comment:Critical value OKYamel C Lab. pCO2, POC 37 35 - 45 mmHg [facility] pO2, POC 29(Critic al) 85 - 104 mmHg [facility] Comment:Critical value OK C C Lab. Base Excess, POC -10.0(L) -3.0 - 3.0 mmol/L [facility] Bicarbonate, POC 16.7(L) 20.0 - 26.0 mmol/L [facility] Sodium, POC 123(L) 135 - 145 mmol/L [facility] POC Potassium 4.0 3.5 - 5.0 mmol/L [facility] Ionized Calcium, POC 1.12(L) 1.15 - 1.33 mmol/L [facility] POC Hematocrit 27.0(L) 34.0 - 45.0 % [facility] POC Calc Hgb 9.2(L) 11.2 - 15.7 g/dL [facility] Comment:The calculation of h emoglobin from hematocrit assumes a normal MCHC. POC Bgas Loc CC Lab [facility] Blood 05/12/2023 8:10 AM EDT 05/13/2023 12:00 PM EDT Alirio Hudson MD CHEMISTRY ORDERABLE S Performing Organization Address City/[facility]/ZIP Co de Phone Number [facility] [address] * (ABNORMAL) Lactate, whole blood, send to lab ([facility]) (05/12/2023 7:00 AM EDT) Lactate WB 2.4(H) 0.5 - 2.2 mmol/L [facility] Blood 05/12/2023 7:00 AM EDT 05/12/2023 7:09 AM EDT Narrative Resulting Agency Comment Spec In Lab Rahda Hollins MD CHEMISTRY ORDERABL ES Performing Organization Address [facility] Co de Phone Number [facility] [address] * (ABNORMAL) Comprehensive metabolic panel (non-fasting) (05/12/2023 6:00 AM EDT) Glucose 167 65 - 199 mg/dL [facility] Comment:Diabetes: >=200 mg/d L plus symptoms Blood Urea Nitrogen 67(H) 8 - 18 mg/dL [facility] Creatinine 2.01(H) 0.70 - 1.20 mg/dL [facility] Sodium 131(L) 135 - 145 mmol/L [facility] Potassium 4.3 3.5 - 5.0 mmol/L [facility] Comment: Please note: ??Patients with WBC >100,000 may have falsely elevated Potassium levels. ??For accurate Potassium quantification in these patients send serum separator tube (gold top) for subsequent determinations. ??Contact the Clinical Chemistry Laboratory if there are any questions. Chloride 97(L) 98 - 107 mmol/L [facility] Carbon Dioxide 14(L) 22 - 31 mmol/L [facility] Anion Gap 20(H) 5 - 15 mmol/L [facility] Calcium 8.6 8.5 - 10.5 mg/dL [facility] Protein, Total 6.3 6.1 - 8.0 g/dL [facility] Albumin 3.5 3.2 - 5.2 g/dL [facility] Aspartate Aminotransferase 1,435(H) 0 - 30 unit/L [facility] Alanine Aminotransferase 1,174(H) 0 - 30 unit/L [facility] Alkaline Phosphatase 100 35 - 105 unit/L [facility] Bilirubin, Total 0.9 0.2 - 1.3 mg/dL [facility] Est Glomerular Filtration Rate 27(L) >=60 mL/min/1. 73 m?? [facility] Comment: This patient's estimated GFR was [...] Lab Radha Hollins MD CHEMISTRY ORDERABL ES [facility] [address] * (ABNORMAL) Coox2 (05/12/2023 5:08 AM EDT) pO2, Coox 24 mmHg [facility] Hgb Blood Gas 10.4(L) 11.7 - 15.5 g/dL [facility] Oxyhemoglobin, Coox 30.7 % [facility] Carboxyhemoglo bin, Coox 0.3 % [facility] Comment: Nonsmokers: 0.5-1.5% COHB Smokers: Variable, but usually less than 10% Toxic: 20-30% COHB Lethal: Greater than 60% COHB Methemoglobin, Coox 0.8 <=1.5 % [facility] Source Coox Mixed Venous [facility] Blood 05/12/2023 5:08 AM EDT 05/12/2023 5:08 AM EDT Radha Hollins MD POINT OF CARE TEST ORDERABLES Performing Organization Address City/[facility] Co de Phone Number [facility] [address] * (ABNORMAL) Coox2 (05/12/2023 3:21 AM EDT) pO2, Coox [address] [facility] Hgb Blood Gas 10.8(L) 11.7 - 15.5 g/dL [facility] Oxyhemoglobin, Coox 32.7 % [facility] Carboxyhemoglo bin, Coox 0.3 % [facility] Comment: Nonsmokers: 0.5-1.5% COHB Smokers: Variable, but usually less than 10% Toxic: 20-30% COHB Lethal: Greater than 60% COHB Methemoglobin, Coox 0.7 <=1.5 % [facility] Source Coox Mixed Venous [facility] Blood 05/12/2023 3:21 AM EDT 05/12/2023 3:21 AM EDT Radha Hollins MD POINT OF CARE TEST ORDERABLES Performing Organization Address City/[facility] Co de Phone Number [facility] [address] * (ABNORMAL) BLOOD GAS 2 ARTERIAL (05/12/2023 3:18 AM EDT) pH, Arterial 7.34(L) 7.35 - 7.45 [facility] PCO2, Arterial 30(L) 35 - 45 mmHg [facility] PO2, Arterial 72(L) 85 - 104 mmHg [facility] Bicarbonate, Arterial 16.0(L) 20.0 - 26.0 mmol/L [facility] Base Excess, Arterial -9.8(L) -3.0 - 3.0 mmol/L [facility] Hgb Blood Gas 11.0(L) 11.7 - 15.5 g/dL [facility] Oxyhemoglobin, Arterial 89.8(L) 94.0 - 97.0 % [facility] Carboxyhemoglob in, Arterial 0.3 % [facility] Comment: Nonsmokers: 0.5-1.5% COHB Smokers: Variable, but usually less than 10% Toxic: 20-30% COHB Lethal: Greater than 60% COHB Methemoglobin, Arterial 0.7 <=1.5 % [facility] Na Whole Blood 131(L) 135 - 145 mmol/L [facility] K Whole Blood 4.2 3.5 - 5.0 mmol/L [facility] Comment: Please note: Patients with WBC >100,000 may have falsely elevated Potassium levels. Contact the Clinical Chemistry Laboratory if there are any questions. ICa Whole Blood 1.12(L) 1.15 - 1.33 mmol/L [facility] Comment: Note: ??Total bilirubin higher than 20 mg/dL may lead to falsely low ionized calcium. CL Whole Blood 100 98 - 107 mmol/L [facility] Gluc Whole Bld 160 65 - 199 mg/dL [facility] Comment:Diabetes: >=200 mg/d L plus symptoms. Lactate WB 2.7(H) 0.5 - 2.2 mmol/L [facility] Flow Art 5.0 LPM [facility] Blood 05/12/2023 3:18 AM EDT 05/12/2023 3:18 AM EDT Radha Hollins MD POINT OF CARE TEST ORDERABLES [facility] [address] * (ABNORMAL) Coox2 (05/12/2023 1:14 AM EDT) pO2, Coox 28 mmHg [facility] Hgb Blood Gas 10.9(L) 11.7 - 15.5 g/dL [facility] Oxyhemoglobin, Coox 37.3 % [facility] Carboxyhemoglo bin, Coox 0.3 % [facility] Comment: Nonsmokers: 0.5-1.5% COHB Smokers: Variable, but usually less than 10% Toxic: 20-30% COHB Lethal: Greater than 60% COHB Methemoglobin, Coox 0.5 <=1.5 % [facility] Source Coox Mixed Venous [facility] Blood 05/12/2023 1:14 AM EDT 05/12/2023 1:14 AM EDT Radha Hollins MD POINT OF CARE TEST ORDERABLES [facility] [address] * (ABNORMAL) BLOOD GAS 2 ARTERIAL (05/12/2023 1:06 AM EDT) pH, Arterial 7.34(L) 7.35 - 7.45 [facility] PCO2, Arterial 30(L) 35 - 45 mmHg [facility] PO2, Arterial 81(L) 85 - 104 mmHg [facility] Bicarbonate, Arterial 15.7(L) 20.0 - 26.0 mmol/L [facility] Base Excess, Arterial -10.1(L) -3.0 - 3.0 mmol/L [facility] Hgb Blood Gas 11.0(L) 11.7 - 15.5 g/dL [facility] Oxyhemoglobin, Arterial 92.3(L) 94.0 - 97.0 % [facility] Carboxyhemoglob in, Arterial 0.2 % [facility] Comment: Nonsmokers: 0.5-1.5% COHB Smokers: Variable, but usually less than 10% Toxic: 20-30% COHB Lethal: Greater than 60% COHB Methemoglobin, Arterial 0.6 <=1.5 % [facility] Na Whole Blood 131(L) 135 - 145 mmol/L [facility] K Whole Blood 4.2 3.5 - 5.0 mmol/L [facility] Comment: Please note: Patients with WBC >100,000 may have falsely elevated Potassium levels. Contact the Clinical Chemistry Laboratory if there are any questions. ICa Whole Blood 1.13(L) 1.15 - 1.33 mmol/L [facility] Comment: Note: ??Total bilirubin higher than 20 mg/dL may lead to falsely low ionized calcium. CL Whole Blood 99 98 - 107 mmol/L [facility] Gluc Whole Bld 132 65 - 199 mg/dL [facility] Comment:Diabetes: >=200 mg/d L plus symptoms. Lactate WB 2.7(H) 0.5 - 2.2 mmol/L [facility] Flow Art 5.0 LPM [facility] Blood 05/12/2023 1:06 AM EDT 05/12/2023 1:06 AM EDT Radha Hollins MD POINT OF CARE TEST ORDERABLES Performing Organization Address City/State/[facility] Co de Phone Number [facility] [place] [address] * (ABNORMAL) Differential, Automated (05/12/2023 1:05 AM EDT) Neutrophil % 83.3 % [facility] Neutrophil Absolute 7.49(H) 1.70 - 6.10 x10(3)/mc L [facility] Lymph % 7.1 % [facility] Lymphocytes Abs 0.6(L) 0.9 - 3.2 x10(3)/mc L [facility] Monocyte % 8.9 % [facility] Monocyte Abs 0.8 0.3 - 0.9 x10(3)/mc L [facility] Eos % 0.0 % [facility] Eosinophils Abs 0.0 0.0 - 0.4 x10(3)/mc L [facility] Basophil % 0.1 % [facility] Baso Absolute 0.0 0.0 - 0.1 x10(3)/mc L [facility] Immature Gran % 0.60 % [facility] Comment: Immature granulocytes(IG's)percentage and absolute count will include metamyelocytes, myelocytes, and promyelocytes. Blood smears from CBCs yielding IG's will be scanned manually for concordance. If this scan disagrees with the automated IG or if promyelocytes are noted, a manual differential will be performed. Immature Gran Absolute 0.05(H) 0.00 - 0.04 x10(3)/mc L [facility] Blood 05/12/2023 1:05 AM EDT 05/12/2023 1:15 AM EDT Narrative Resulting Agency Comment Spec In Lab Gianni Fletcher MD HEMATOLOGY ORDERABLE S [facility] [address] * (ABNORMAL) Hemogram (05/12/2023 1:05 AM EDT) White Blood Cell 9.0 4.0 - 9.5 x10(3)/mc L [facility] Red Blood Cell 3.01(L) 4.00 - 5.21 x10(6)/ L [facility] Hemoglobin 9.8(L) 11.7 - 15.5 g/dL [facility] Hematocrit 28.7(L) 35.7 - 45.8 % [facility] Mean Cell Volume 95.3(H) 82.6 - 94.4 fL [facility] Mean Cell Hemoglobin 32.6(H) 27.1 - 32.0 pg [facility] Mean Cell Hemoglobin Concentration 34.1 31.7 - 35.0 g/dL [facility] Platelet 186 145 - 357 x10(3)/mc L [facility] RDW Standard Deviation 43.7 37.0 - 46.0 fL [facility] RDW coefficient of variation 12.7 11.5 - 14.1 % [facility] Mean Platelet Volume 10.3 7.6 - 12.9 fL [facility] NRBC% auto 0.0 % [facility] NRBC Absolute 0.000 0.000 - 0.000 x10(3)/mc L [facility] Blood 05/12/2023 1:05 AM EDT 05/12/2023 1:15 AM EDT Narrative Resulting Agency Comment Spec In Lab Gianni Fletcher MD HEMATOLOGY ORDERABLE S [facility] [place] [address] * (ABNORMAL) Comprehensive metabolic panel (non-fasting) (05/12/2023 1:05 AM EDT) Glucose 141 65 - 199 mg/dL [facility] Comment:Diabetes: >=200 mg/d L plus symptoms Blood Urea Nitrogen 63(H) 8 - 18 mg/dL [facility] Creatinine 1.86(H) 0.70 - 1.20 mg/dL [facility] Sodium 131(L) 135 - 145 mmol/L [facility] Potassium 4.4 3.5 - 5.0 mmol/L [facility] Comment: Please note: ??Patients with WBC >100,000 may have falsely elevated Potassium levels. ??For accurate Potassium quantification in these patients send serum separator tube (gold top) for subsequent determinations. ??Contact the Clinical Chemistry Laboratory if there are any questions. Chloride 96(L) 98 - 107 mmol/L [facility] Carbon Dioxide 14(L) 22 - 31 mmol/L [facility] Anion Gap 21(H) 5 - 15 mmol/L [facility] Calcium 9.0 8.5 - 10.5 mg/dL [facility] Protein, Total 6.6 6.1 - 8.0 g/dL [facility] Albumin 3.9 3.2 - 5.2 g/dL [facility] Aspartate Aminotransferase 1,227(H) 0 - 30 unit/L [facility] Alanine Aminotransferase 1,097(H) 0 - 30 unit/L [facility] Alkaline Phosphatase 108(H) 35 - 105 unit/L [facility] Bilirubin, Total 1.0 0.2 - 1.3 mg/dL [facility] Est Glomerular Filtration Rate 29(L) >=60 mL/min/1. 73 m?? [facility] Comment: This patient's estimated GFR was [...] Lab Radha Hollins MD [place] [address] * XR Chest One View (05/12/2023 1:00 [...] who have questions please contact the health rn complex care that requested your imaging first. ? Electronically signed by: Will Rowe MD, [facility] ([phone]), at 05/12/2023 3:16 AM Narrative 05/12/2023 3:16 [...] patients who have questions please contactthe health rn complex care that requested your imaging first. Radha Hollins MD IMG DX ORDERABLES * (ABNORMAL) Coox2 (05/12/2023 12:30 AM EDT) pO2, Coox 22 mmHg [facility] Hgb Blood Gas 10.9(L) 11.7 - 15.5 g/dL [facility] Oxyhemoglobin, Coox 25.1 % [facility] Carboxyhemoglo bin, Coox 0.3 % [facility] Comment: Nonsmokers: 0.5-1.5% COHB Smokers: Variable, but usually less than 10% Toxic: 20-30% COHB Lethal: Greater than 60% COHB Methemoglobin, Coox 1.4 <=1.5 % [facility] Source Coox Mixed Venous [facility] Blood 05/12/2023 12:3 0 AM EDT 05/12/2023 12:30 AM EDT Radha Hollins MD POINT OF CARE TEST ORDERABLES [facility] [place] [address] * XR Chest One View (05/11/2023 11:45 [...] who have questions please contact the health rn complex care that requested your imaging first. ? Electronically signed by: Will Rowe MD, [facility] ([phone]), at 05/11/2023 11:57 PM Narrative 05/11/2023 11:57 [...] patients who have questions please contactthe health rn complex care that requested your imaging first. Electronically signed by: Will Rowe MD, [facility]([phone]), at 05/11/2023 11:57 PM Radha Hollins MD IMG DX ORDERABLES * (ABNORMAL) Lactate, whole blood, send to lab ([facility] (05/11/2023 7:40 PM EDT) Lactate WB 4.8(Critic al) 0.5 - 2.2 mmol/L [facility] Comment:Called by: IMM, Read back by: Magdalena Baires, Date/Time:05/11/23 19:54. Blood 05/11/2023 7:40 PM EDT 05/11/2023 7:49 PM EDT Narrative Resulting Agency Comment Spec In Lab Radha Hollins MD CHEMISTRY ORDERABL ES Performing Organization Address City/[facility]/ZIP Co de Phone Number [facility] [address] * Urine culture (05/11/2023 7:22 PM EDT) Pathologist [facility] Urine Culture 50,000-99,000 cfu/ml Normal mucosal herman Susceptibilit y testing not routinely performed for Coagulase Negative Staphylococcu s species and other Gram Positive organisms from urine. [facility] Clean Catch Urine 05/11/2023 7:22 PM EDT 05/11/2023 8:50 PM EDT Narrative Resulting Agency Comment Spec In Lab Brody Kaplan APRN MICROBIOLOGY - GENE RAL ORDERABLES Performing Organization Address [facility]/ZIP Co de Phone Number [facility] [address] * (ABNORMAL) Urinalysis Microscopic Exam (05/11/2023 7:22 PM EDT) RBC, Urine 2 0 - 4 /HPF [facility] WBC, Urine >100(H) 0 - 5 /HPF [facility] Bacteria, Urine Occasional (A) None /HPF [facility] Squamous Epithelial Cells Raw Data, Urine 5(H) <=4 /HPF [facility] Hyaline Casts, Urine 3(H) 0 - 2 /LPF [facility] Clean Catch Urine 05/11/2023 7:22 PM EDT 05/11/2023 7:31 PM EDT Narrative Resulting Agency Comment Spec In Lab Brody Kaplan SUPERVISOR FACEPIECE LINE URINE ORDERABLES [facility] [address] * (ABNORMAL) Urinalysis with reflex Culture (05/11/2023 7:22 PM EDT) Glucose, Urine Dipstick Negative Negative mg/dL [facility] Protein, Urine Dipstick Trace(A) Negative mg/dL [facility] Bilirubin, Urine Dipstick Negative Negative mg/dL [facility] Comment: Clinical correlation required for positive Urine Bilirubin results as false positive may occur with some drugs and drug related products. If a false positive is suspected a serum total bilirubin should be considered if clinically indicated. Urobilinogen, Urine Dipstick Normal Normal mg/dL [facility] pH, Urn (dipstick) 5.0 5.0 - 8.0 [facility] Blood, Urine Dipstick Trace(A) Negative mg/dL [facility] Ketone, Urine Dipstick Negative Negative mg/dL [facility] Nitrite, Urine Dipstick Negative Negative [facility] Leukocytes, Urine Dipstick Moderate(A) Negative mcL [facility] Appearance, Urine Dipstick Cloudy(A) Clear [facility] Specific Holly Urine Automated >=1.030(A) 1.005 - 1.030 [facility] Color, Urine Dipstick Yellow Yellow [facility] Reflex to Culture Yes [facility] Clean Catch Urine 05/11/2023 7:22 PM EDT 05/11/2023 7:31 PM EDT Narrative Resulting Agency Comment Spec In Lab Brody Kaplan SUPERVISOR FACEPIECE LINE URINE ORDERABLES [facility] [address] * (ABNORMAL) pro-Brain Natriuretic Peptide (05/11/2023 7:11 PM EDT) NT-proBNP >35,000(H) <=124 pg/mL [facility] Blood 05/11/2023 7:11 PM EDT 05/11/2023 7:26 PM EDT Narrative Resulting Agency Comment Spec In Lab Radha Hollins MD CHEMISTRY ORDERABL ES Performing Organization Address City/[facility]/ZIP Co de Phone Number [facility] [address] * (ABNORMAL) Lactate, whole blood, send to lab ([facility] [place] [place]) (05/11/2023 2:47 PM EDT) Lactate WB 2.9(H) 0.5 - 2.2 mmol/L [facility] Blood 05/11/2023 2:47 PM EDT 05/11/2023 2:53 PM EDT Narrative Resulting Agency Comment Spec In Lab Juan Luis Gonzalez MD CHEMISTRY ORDERABLES Performing Organization Address [facility] Co de Phone Number [facility] [address] * (ABNORMAL) CT Angiogram Abdomen & Pelvis [...] who have questions please contact the health rn complex care that requested your imaging first. ? [...] who have questions please contact the health rn complex care that requested your imaging first. ? Electronically signed by: Cullen Narayanan MD, [facility] ([phone]), at 05/11/2023 4:37 PM Narrative 05/11/2023 4:37 [...] 610 mm2 Circumference: 88 mm Calcification: Mild Fhcgjcu-gs-wnzhnidn height: Left: 6.2 mm Right: 5.8 mm THORACIC AORTA Description: Normal course and caliber. ??Mild diffuse atherosclerotic changes. No acute aortopathy noted. Penology Teacher dimensions: Aortic root: 27.6 mm Max ascending aorta: 30.5 mm x 27.7 mm Suggested fluoroscopic angulation based on line extending through the nadirs of the three sinuses of Valsalva, set equidistant: ?? SAO TOMEAN ??9 degrees; cranial 7 degrees MITRAL: Mitral [...] 610 mm2 Circumference: 88 mm Calcification: Mild Vhfzmvs-rc-ojgwhpnh height: Left: 6.2 mm Right: 5.8 mm THORACIC AORTA Description: Normal course and caliber. Mild diffuse atheroscleroticchanges. No acute aortopathy noted. Penology Teacher dimensions: Aortic root: 27.6 mm Max ascending aorta: 30.5 mm x 27.7 mm Suggested fluoroscopic angulation based on line extending through thenadirs of the three sinuses of Valsalva, set equidistant: SAO TOMEAN 9 degrees; cranial 7 degrees MITRAL: Mitral [...] patients who have questions please contactthe health rn complex care that requested your imaging first. Electronically signed by: Cullen Narayanan MD, [facility]([phone]), at 05/11/2023 4:37 PM Antelmo Sharma MD IMG CT ORDERABLES * (ABNORMAL) Lactate, whole blood, send to lab ([facility] [place] (05/11/2023 9:29 AM EDT) [facility] Lactate WB 3.1(H) 0.5 - 2.2 mmol/L [facility] Blood 05/11/2023 9:29 AM EDT 05/11/2023 9:38 AM EDT Narrative Resulting Agency Comment Spec In Lab Juan Luis Gonzalez MD CHEMISTRY ORDERABLES [facility] [address] * (ABNORMAL) Differential, Automated (05/11/2023 4:42 AM EDT) Pathologist [facility] Neutrophil % 78.1 % [facility] Neutrophil Absolute 5.46 1.70 - 6.10 x10(3)/mc L [facility] Lymph % 10.6 % [facility] Lymphocytes Abs 0.7(L) 0.9 - 3.2 x10(3)/mc L [facility] Monocyte % 9.6 % [facility] Monocyte Abs 0.7 0.3 - 0.9 x10(3)/mc L [facility] Eos % 0.0 % [facility] Eosinophils Abs 0.0 0.0 - 0.4 x10(3)/mc L [facility] Basophil % 0.4 % [facility] Baso Absolute 0.0 0.0 - 0.1 x10(3)/mc L [facility] Immature Gran % 1.30 % [facility] Comment: Immature granulocytes(IG's)percentage and absolute count will include metamyelocytes, myelocytes, and promyelocytes. Blood smears from CBCs yielding IG's will be scanned manually for concordance. If this scan disagrees with the automated IG or if promyelocytes are noted, a manual differential will be performed. Immature Gran Absolute 0.09(H) 0.00 - 0.04 x10(3)/ L [facility] Blood 05/11/2023 4:42 AM EDT 05/11/2023 4:49 AM EDT Narrative Resulting Agency Comment Spec In Lab Klaudia Reid MD HEMATOLOGY OR DERABLES Performing Organization Address City/State/[facility] Co de Phone Number [facility] [address] * (ABNORMAL) Hemogram (05/11/2023 4:42 AM EDT) White Blood Cell 7.0 4.0 - 9.5 x10(3)/mc L [facility] Red Blood Cell 3.44(L) 4.00 - 5.21 x10(6)/mc L [facility] Hemoglobin 11.1(L) 11.7 - 15.5 g/dL [facility] Hematocrit 32.7(L) 35.7 - 45.8 % [facility] Mean Cell Volume 95.1(H) 82.6 - 94.4 fL [facility] Mean Cell Hemoglobin 32.3(H) 27.1 - 32.0 pg [facility] Mean Cell Hemoglobin Concentration 33.9 31.7 - 35.0 g/dL [facility] Platelet 165 145 - 357 x10(3)/mc L [facility] RDW Standard Deviation 43.1 37.0 - 46.0 fL [facility] RDW coefficient of variation 12.7 11.5 - 14.1 % [facility] Mean Platelet Volume 10.1 7.6 - 12.9 fL [facility] NRBC% auto 0.0 % [facility] NRBC Absolute 0.000 0.000 - 0.000 x10(3)/mc L [facility] Blood 05/11/2023 4:42 AM EDT 05/11/2023 4:49 AM EDT Narrative Resulting Agency Comment Spec In Lab Klaudia Reid MD HEMATOLOGY OR DERABLES Performing Organization Address [facility] Co de Phone Number [facility] [address] * Heparin (unfractionated) Level (05/11/2023 4:42 AM EDT) UF Heparin 0.46 IU/mL [facility] Comment: [...] Performing Organization Address [facility] Co de Phone Number [facility] [address] * (ABNORMAL) Comprehensive metabolic panel (non-fasting) (05/11/2023 4:42 AM EDT) Glucose 143 65 - 199 mg/dL [facility] Comment:Diabetes: >=200 mg/d L plus symptoms Blood Urea Nitrogen 42(H) 8 - 18 mg/dL [facility] Creatinine 1.24(H) 0.70 - 1.20 mg/dL [facility] Sodium 134(L) 135 - 145 mmol/L [facility] Potassium 4.6 3.5 - 5.0 mmol/L [facility] Comment: Please note: ??Patients with WBC >100,000 may have falsely elevated Potassium levels. ??For accurate Potassium quantification in these patients send serum separator tube (gold top) for subsequent determinations. ??Contact the Clinical Chemistry Laboratory if there are any questions. Chloride 99 98 - 107 mmol/L [facility] Carbon Dioxide 14(L) 22 - 31 mmol/L [facility] Anion Gap 21(H) 5 - 15 mmol/L [facility] Calcium 9.6 8.5 - 10.5 mg/dL [facility] Protein, Total 7.2 6.1 - 8.0 g/dL [facility] Albumin 3.7 3.2 - 5.2 g/dL [facility] Aspartate Aminotransferase 144(H) 0 - 30 unit/L [facility] Comment:result rechecked-ssc Alanine Aminotransferase 130(H) 0 - 30 unit/L [facility] Comment:result rechecked-ssc Alkaline Phosphatase 72 35 - 105 unit/L [facility] Bilirubin, Total 0.8 0.2 - 1.3 mg/dL [facility] Est Glomerular Filtration Rate 48(L) >=60 mL/min/1. 73 m?? [facility] Comment: This patient's estimated GFR was [...] MD CHEMISTRY ORDERABL ES Performing Organization Address City/[facility]/ZIP Co de Phone Number [facility] [address] * EKG 12 Lead (05/10/2023 1:16 PM EDT) Ventricular rate 118 BPM MUSE SYSTEM Atrial Rate 118 BPM MUSE SYSTEM P-R Interval 152 ms MUSE SYSTEM QRS Duration 104 ms MUSE SYSTEM Q-T Interval 316 ms MUSE SYSTEM QTC Calculated (Bezet) 442 ms MUSE SYSTEM Calculated P [place] 29 degrees MUSE SYSTEM Calculated R [place] 18 degrees MUSE SYSTEM Calculated T [place] -173 degrees MUSE SYSTEM INTERPRETATION Sinus tachycardia Minimal voltage criteria for LVH, may be normal variant ( [place] product ) Septal infarct , age undetermined ST & T wave abnormality, consider lateral ischemia Abnormal ECG When compared with ECG of 10-MAY-2023 07:59, Fusion complexes are no longer Present Premature ventricular complexes are no longer Present ST no longer depressed in Anterior leads Confirmed by MD Villareal Danette ([id number]) on 05/10/2023 8:47:46 PM MUSE SYSTEM 05/10/2023 1:16 PM EDT 05/10/2023 8:47 PM EDT Juan Luis Gonzalez MD ECG ORDERABLES Performing Organization Address [facility] Co de Phone Number MUSE SYSTEM * Lactate, whole blood, send to lab ([facility] [place]) (05/10/2023 11:52 AM EDT) Lactate WB 1.8 0.5 - 2.2 mmol/L [facility] Blood 05/10/2023 11:5 2 AM EDT 05/10/2023 12:13 PM EDT Narrative Resulting Agency Comment Spec In Lab Juan Luis Gonzalez MD CHEMISTRY ORDERABLES Performing Organization Address City/[facility]/ZIP Co de Phone Number [facility] [address] * XR Chest One View (05/10/2023 11:16 [...] who have questions please contact the health rn complex care that requested your imaging first. ? Electronically signed by: ALIX RUVALCABA MD, [facility] ([phone]), at 05/10/2023 1:25 PM Narrative 05/10/2023 1:25 [...] patients who have questions please contactthe health rn complex care that requested your imaging first. Electronically signed by: ALIX RUVALCABA MD, [facility]([phone]), at 05/10/2023 1:25 PM Juan Luis Gonzalez MD IMG DX ORDERABLES * EKG 12 Lead (05/10/2023 7:59 AM EDT) Pathologist [facility] Ventricular rate 115 BPM MUSE SYSTEM Atrial Rate 115 BPM MUSE SYSTEM P-R Interval 142 ms MUSE SYSTEM QRS Duration 102 ms MUSE SYSTEM Q-T Interval 322 ms MUSE SYSTEM QTC Calculated (Bezet) 445 ms MUSE SYSTEM Calculated P [place] 36 degrees MUSE SYSTEM Calculated R [place] 28 degrees MUSE SYSTEM Calculated T [place] -119 degrees MUSE SYSTEM INTERPRETATION Sinus tachycardia with frequent Premature ventricular complexes and Fusion complexes ST & T wave abnormality, consider lateral ischemia Abnormal ECG When compared with ECG of 08-MAY-2023 15:51, No significant change was found I personally reviewed the tracing and edited the fellows interpretation Confirmed by fellow MD Anitha, [facility] () on 05/11/2023 6:19:54 AM Confirmed by MD Trma, Chel ([id number]) on 05/11/2023 3:18:56 PM MUSE SYSTEM 05/10/2023 7:59 AM EDT 05/11/2023 3:18 PM EDT Radha Hollins MD ECG ORDERABLES MUSE SYSTEM * (ABNORMAL) Differential, Automated (05/10/2023 2:28 AM EDT) Neutrophil % 77.1 % [facility] Neutrophil Absolute 4.01 1.70 - 6.10 x10(3)/mc L [facility] Lymph % 14.0 % [facility] Lymphocytes Abs 0.7(L) 0.9 - 3.2 x10(3)/ L [facility] Monocyte % 7.7 % [facility] Monocyte Abs 0.4 0.3 - 0.9 x10(3)/[facility] Eos % 0.4 % [facility] Eosinophils Abs 0.0 0.0 - 0.4 x10(3)/[facility] Basophil % 0.4 % [facility] Baso Absolute 0.0 0.0 - 0.1 x10(3)/[facility] Immature Gran % 0.40 % [facility] Comment: Immature granulocytes(IG's)percentage and absolute count will include metamyelocytes, myelocytes, and promyelocytes. Blood smears from CBCs yielding IG's will be scanned manually for concordance. If this scan disagrees with the automated IG or if promyelocytes are noted, a manual differential will be performed. Immature Gran Absolute 0.02 0.00 - 0.04 x10(3)/[facility] Blood 05/10/2023 2:28 AM EDT 05/10/2023 2:57 AM EDT Narrative Resulting Agency Comment Spec In Lab Klaudia Reid MD HEMATOLOGY OR DERABLES Performing Organization Address City/State/[facility] Co de Phone Number [facility] [address] * (ABNORMAL) Hemogram (05/10/2023 2:28 AM EDT) White Blood Cell 5.2 4.0 - 9.5 x10(3)/[facility] Red Blood Cell 3.11(L) 4.00 - 5.21 x10(6)/[facility] Hemoglobin 10.2(L) 11.7 - 15.5 g/dL [facility] Hematocrit 30.2(L) 35.7 - 45.8 % [facility] Mean Cell Volume 97.1(H) 82.6 - 94.4 fL [facility] Mean Cell Hemoglobin 32.8(H) 27.1 - 32.0 pg [facility] Mean Cell Hemoglobin Concentration 33.8 31.7 - 35.0 g/dL [facility] Platelet 151 145 - 357 x10(3)/mc L [facility] RDW Standard Deviation 44.9 37.0 - 46.0 fL [facility] RDW coefficient of variation 12.8 11.5 - 14.1 % [facility] Mean Platelet Volume 9.8 7.6 - 12.9 fL [facility] NRBC% auto 0.0 % [facility] NRBC Absolute 0.000 0.000 - 0.000 x10(3)/mc L [facility] Blood 05/10/2023 2:28 AM EDT 05/10/2023 2:57 AM EDT Narrative Resulting Agency Comment Spec In Lab Klaudia Reid MD HEMATOLOGY OR DERABLES [facility] [address] * (ABNORMAL) Comprehensive metabolic panel (non-fasting) (05/10/2023 2:28 AM EDT) Pathologist [facility] Glucose 100 65 - 199 mg/dL [facility] Comment:Diabetes: >=200 mg/d L plus symptoms Blood Urea Nitrogen 30(H) 8 - 18 mg/dL [facility] Creatinine 0.90 0.70 - 1.20 mg/dL [facility] Sodium 134(L) 135 - 145 mmol/L [facility] Potassium 4.1 3.5 - 5.0 mmol/L [facility] Comment: Please note: ??Patients with WBC >100,000 may have falsely elevated Potassium levels. ??For accurate Potassium quantification in these patients send serum separator tube (gold top) for subsequent determinations. ??Contact the Clinical Chemistry Laboratory if there are any questions. Chloride 102 98 - 107 mmol/L [facility] Carbon Dioxide 20(L) 22 - 31 mmol/L [facility] Anion Gap 12 5 - 15 mmol/L [facility] Calcium 9.3 8.5 - 10.5 mg/dL [facility] Protein, Total 6.4 6.1 - 8.0 g/dL [facility] Albumin 3.7 3.2 - 5.2 g/dL [facility] Aspartate Aminotransferase 24 0 - 30 unit/L [facility] Alanine Aminotransferase 14 0 - 30 unit/L [facility] Alkaline Phosphatase 70 35 - 105 unit/L [facility] Bilirubin, Total 0.5 0.2 - 1.3 mg/dL [facility] Est Glomerular Filtration Rate 70 >=60 mL/min/1. 73 m?? [facility] Comment: This patient's [...] Lab Radha Hollins MD CHEMISTRY ORDERABL ES [facility] [place] [address] * Heparin (unfractionated) Level (05/10/2023 2:28 AM EDT) UF Heparin 0.37 IU/mL [facility] Comment: Heparin [...] Lab Radha Hollins MD [place] [address] * (ABNORMAL) Differential, Automated (05/09/2023 4:00 AM EDT) Neutrophil % 81.7 % [facility] Neutrophil Absolute 5.26 1.70 - 6.10 x10(3)/mc L [facility] Lymph % 10.7 % [facility] Lymphocytes Abs 0.7(L) 0.9 - 3.2 x10(3)/mc L [facility] Monocyte % 6.5 % [facility] Monocyte Abs 0.4 0.3 - 0.9 x10(3)/mc L [facility] Eos % 0.5 % [facility] Eosinophils Abs 0.0 0.0 - 0.4 x10(3)/mc L [facility] Basophil % 0.3 % [facility] Baso Absolute 0.0 0.0 - 0.1 x10(3)/mc L [facility] Immature Gran % 0.30 % [facility] Comment: Immature granulocytes(IG's)percentage and absolute count will include metamyelocytes, myelocytes, and promyelocytes. Blood smears from CBCs yielding IG's will be scanned manually for concordance. If this scan disagrees with the automated IG or if promyelocytes are noted, a manual differential will be performed. Immature Gran Absolute 0.02 0.00 - 0.04 x10(3)/mc L [facility] Blood 05/09/2023 4:00 AM EDT 05/09/2023 4:19 AM EDT Narrative Resulting Agency Comment Spec In Lab Klaudia Reid MD HEMATOLOGY OR DERABLES Performing Organization Address City/[facility]/[place] [address] * (ABNORMAL) Hemogram (05/09/2023 4:00 AM EDT) White Blood Cell 6.4 4.0 - 9.5 x10(3)/mc L [facility] Red Blood Cell 3.15(L) 4.00 - 5.21 x10(6)/mc L [facility] Hemoglobin 10.2(L) 11.7 - 15.5 g/dL [facility] Hematocrit 30.3(L) 35.7 - 45.8 % [facility] Mean Cell Volume 96.2(H) 82.6 - 94.4 fL [facility] Mean Cell Hemoglobin 32.4(H) 27.1 - 32.0 pg [facility] Mean Cell Hemoglobin Concentration 33.7 31.7 - 35.0 g/dL [facility] Platelet 151 145 - 357 x10(3)/mc L [facility] RDW Standard Deviation 44.7 37.0 - 46.0 fL [facility] RDW coefficient of variation 12.8 11.5 - 14.1 % [facility] Mean Platelet Volume 9.4 7.6 - 12.9 fL [facility] NRBC% auto 0.0 % [facility] NRBC Absolute 0.000 0.000 - 0.000 x10(3)/ L [facility] Blood 05/09/2023 4:00 AM EDT 05/09/2023 4:19 AM EDT Narrative Resulting Agency Comment Spec In Lab Klaudia Reid MD HEMATOLOGY OR DERABLES Performing Organization Address City/State/[facility] Co de Phone Number [facility] [place] [address] * Heparin (unfractionated) Level (05/09/2023 4:00 AM EDT) UF Heparin 0.47 IU/mL [facility] Comment: Heparin (anti-Xa) [...] Lab Radha Hollins MD HEMATOLOGY ORDERAB LES [facility] [address] [place] [address] * (ABNORMAL) Comprehensive metabolic panel (non-fasting) (05/09/2023 4:00 AM EDT) Glucose 108 65 - 199 mg/dL [facility] Comment:Diabetes: >=200 mg/d L plus symptoms Blood Urea Nitrogen 31(H) 8 - 18 mg/dL [facility] Creatinine 1.03 0.70 - 1.20 mg/dL [facility] Sodium 137 135 - 145 mmol/L [facility] Potassium 4.4 3.5 - 5.0 mmol/L [facility] Comment: Please note: ??Patients with WBC >100,000 may have falsely elevated Potassium levels. ??For accurate Potassium quantification in these patients send serum separator tube (gold top) for subsequent determinations. ??Contact the Clinical Chemistry Laboratory if there are any questions. Chloride 102 98 - 107 mmol/L [facility] Carbon Dioxide 20(L) 22 - 31 mmol/L [facility] Anion Gap 15 5 - 15 mmol/L [facility] Calcium 9.3 8.5 - 10.5 mg/dL [facility] Protein, Total 6.6 6.1 - 8.0 g/dL [facility] Albumin 3.8 3.2 - 5.2 g/dL [facility] Aspartate Aminotransferase 32(H) 0 - 30 unit/L [facility] Alanine Aminotransferase 18 0 - 30 unit/L [facility] Alkaline Phosphatase 78 35 - 105 unit/L [facility] Bilirubin, Total 0.5 0.2 - 1.3 mg/dL [facility] Est Glomerular Filtration Rate 60 >=60 mL/min/1. 73 m?? [facility] Comment: This patient's estimated GFR was [...] Performing Organization Address [facility] Co de Phone Number [facility] [address] * (ABNORMAL) pro-Brain Natriuretic Peptide (05/08/2023 4:00 PM EDT) NT-proBNP 25,503(H) <=124 pg/mL [facility] Blood Venous Draw / Unknown 05/08/2023 4:00 PM EDT 05/08/2023 4:25 PM EDT Narrative Resulting Agency Comment Spec In Lab Juan Luis Gonzalez MD CHEMISTRY ORDERABLES Performing Organization Address City/[facility] Co de Phone Number [facility] [address] * Magnesium (05/08/2023 4:00 PM EDT) Magnesium 0.82 0.69 - 1.07 mmol/L [facility] Blood 05/08/2023 4:00 PM EDT 05/08/2023 4:06 PM EDT Narrative Resulting Agency Comment Spec In Lab Enrique Chua MD CHEMISTRY ORDERABLES Performing Organization Address [facility] Co de Phone Number [facility] [address] * Potassium (05/08/2023 4:00 PM EDT) Potassium 3.9 3.5 - 5.0 mmol/L [facility] Comment: Please note: ??Patients [...] MD CHEMISTRY ORDERABL ES Performing Organization Address [facility] [place] [address] * Heparin (unfractionated) Level (05/08/2023 4:00 PM EDT) UF Heparin 0.43 IU/mL [facility] Comment: Heparin [...] MD HEMATOLOGY ORDERAB LES Performing Organization Address [facility] Co de Phone Number [facility] [address] * EKG 12 Lead (05/08/2023 3:51 PM EDT) Ventricular rate 98 BPM MUSE SYSTEM Atrial Rate 98 BPM MUSE SYSTEM P-R Interval 150 ms MUSE SYSTEM QRS Duration 102 ms MUSE SYSTEM Q-T Interval 358 ms MUSE SYSTEM QTC Calculated (Bezet) 457 ms MUSE SYSTEM Calculated P [place] 38 degrees MUSE SYSTEM Calculated R [place] 48 degrees MUSE SYSTEM Calculated T [place] -112 degrees MUSE SYSTEM INTERPRETATION Sinus rhythm with frequent and consecutive Premature ventricular and fusion complexes Septal infarct , age undetermined ST & T wave abnormality, consider anterolateral ischemia Abnormal ECG When compared with ECG of 09-NOV-2022 11:17, T wave inversion now evident in Anterolateral leads Confirmed by MD Harshil, Enrique Bell ([id number]) on 05/10/2023 8:11:46 AM MUSE SYSTEM 05/08/2023 3:51 PM EDT 05/10/2023 8:11 AM EDT Radha Hollins MD ECG ORDERABLES MUSE SYSTEM * (ABNORMAL) Differential, Automated (05/08/2023 11:38 AM EDT) Pathologist [facility] Neutrophil % 71.3 % [facility] Neutrophil Absolute 2.91 1.70 - 6.10 x10(3)/mc L [facility] Lymph % 19.1 % [facility] Lymphocytes Abs 0.8(L) 0.9 - 3.2 x10(3)/mc L [facility] Monocyte % 9.0 % [facility] Monocyte Abs 0.4 0.3 - 0.9 x10(3)/mc L [facility] Eos % 0.2 % [facility] Eosinophils Abs 0.0 0.0 - 0.4 x10(3)/mc L [facility] Basophil % 0.2 % [facility] Baso Absolute 0.0 0.0 - 0.1 x10(3)/mc L [facility] Immature Gran % 0.20 % [facility] Comment: Immature granulocytes(IG's)percentage and absolute count will include metamyelocytes, myelocytes, and promyelocytes. Blood smears from CBCs yielding IG's will be scanned manually for concordance. If this scan disagrees with the automated IG or if promyelocytes are noted, a manual differential will be performed. Immature Gran Absolute 0.01 0.00 - 0.04 x10(3)/mc L [facility] Blood 05/08/2023 11:3 8 AM EDT 05/08/2023 11:44 AM EDT Narrative Resulting Agency Comment Spec In Lab Lincoln Sal MD HEMATOLOGY ORDERA BLES [facility] [address] * (ABNORMAL) Hemogram (05/08/2023 11:38 AM EDT) White Blood Cell 4.1 4.0 - 9.5 x10(3)/ L [facility] Red Blood Cell 3.05(L) 4.00 - 5.21 x10(6)/ L [facility] Hemoglobin 10.2(L) 11.7 - 15.5 g/dL [facility] Hematocrit 29.6(L) 35.7 - 45.8 % [facility] Mean Cell Volume 97.0(H) 82.6 - 94.4 fL [facility] Mean Cell Hemoglobin 33.4(H) 27.1 - 32.0 pg [facility] Mean Cell Hemoglobin Concentration 34.5 31.7 - 35.0 g/dL [facility] Platelet 136(L) 145 - 357 x10(3)/mc L [facility] RDW Standard Deviation 44.3 37.0 - 46.0 fL [facility] RDW coefficient of variation 12.6 11.5 - 14.1 % [facility] Mean Platelet Volume 9.4 7.6 - 12.9 fL [facility] NRBC% auto 0.0 % [facility] NRBC Absolute 0.000 0.000 - 0.000 x10(3)/ L [facility] Blood 05/08/2023 11:3 8 AM EDT 05/08/2023 11:44 AM EDT Narrative Resulting Agency Comment Spec In Lab Lincoln Sal MD HEMATOLOGY ORDERA BLES Performing Organization Address [facility] Co de Phone Number [facility] [address] * TSH (05/08/2023 11:38 AM EDT) Thyroid Stimulating Hormone 1.27 0.27 - 4.20 mcIU/mL [facility] Comment: Reference Interval (mcIU/mL): Females: ??First Trimester: 0.23-3.88 ??Second Trimester: 0.22-3.90 ??Third Trimester: 0.44-4.66 Blood 05/08/2023 11:3 8 AM EDT 05/08/2023 11:44 AM EDT Narrative Resulting Agency Comment Spec In Lab Enrique Chua MD CHEMISTRY ORDERABLES Performing Organization Address [facility] Co de Phone Number [facility] [address] * (ABNORMAL) Phosphorus (05/08/2023 11:38 AM EDT) Phosphorus 4.7(H) 2.5 - 4.5 mg/dL [facility] Blood 05/08/2023 11:3 8 AM EDT 05/08/2023 11:44 AM EDT Narrative Resulting Agency Comment Spec In Lab Enrique Chua MD CHEMISTRY ORDERABLES Performing Organization Address [facility] Co de Phone Number [facility] [address] * Magnesium (05/08/2023 11:38 AM EDT) Magnesium 0.76 0.69 - 1.07 mmol/L [facility] Blood 05/08/2023 11:3 8 AM EDT 05/08/2023 11:44 AM EDT Narrative Resulting Agency Comment Spec In Lab Enrique Chua MD CHEMISTRY ORDERABLES Performing Organization Address [facility] Co de Phone Number [facility] [address] * (ABNORMAL) Basic Metabolic Panel (non-fasting) (05/08/2023 11:38 AM EDT) Glucose 97 65 - 199 mg/dL [facility] Comment:Diabetes: >=200 mg/d L plus symptoms Blood Urea Nitrogen 27(H) 8 - 18 mg/dL [facility] Creatinine 1.02 0.70 - 1.20 mg/dL [facility] Sodium 139 135 - 145 mmol/L [facility] Potassium 4.2 3.5 - 5.0 mmol/L [facility] Comment: Please note: ??Patients with WBC >100,000 may have falsely elevated Potassium levels. ??For accurate Potassium quantification in these patients send serum separator tube (gold top) for subsequent determinations. ??Contact the Clinical Chemistry Laboratory if there are any questions. Chloride 105 98 - 107 mmol/L [facility] Carbon Dioxide 20(L) 22 - 31 mmol/L [facility] Anion Gap 14 5 - 15 mmol/L [facility] Calcium 9.4 8.5 - 10.5 mg/dL [facility] Est Glomerular Filtration Rate 60 >=60 mL/min/1. 73 m?? [facility] Comment: This patient's estimated GFR was [...] Performing Organization Address [facility]/ZIP Co de Phone Number [facility] [address] * ECHO COMPLETE (05/08/2023 11:02 AM EDT) EF 25 HEARTLAB SYSTEM Anatomical Region Laterality Modality Cardiac Other 05/08/2023 10:0 3 AM EDT Narrative 05/08/2023 11:51 AM EDT ? Echocardiogram Report Name: PURNIMA THACKER ?Study Date: 05/08/2023 10:03 AMBP: 92/64 mmHg ? Patient Location: [facility]^CV29^A : 1955 ? Height: 155 cm ? Account: [id number] Age: 67 yrs ? Weight: 78 kg Gender: Female ?BSA: 1.8 m2 Ordering Physician: ENRIQUE CHUA Referring Physician: MARIO ALBERTO CHIN Performed By: CHUCKIE Canchola Reason For Study: SAVR Stenosis Exam Location: [facility]. Interpretation Summary -Left ventricle is [...] worsening stenosis. Mitral regurgitation is similar. Procedure Complete-[id number]. Satisfactory quality. There is normal sinus rhythm. [...] Study Date: 0:03 AMBP: 92/64 mmHg Patient Location:[facility]^CV29^A : 1955 Height: 155 cm Account: [id number] Age: 67 yrs Weight: 78 kg Gender: Female BSA: 1.8 m2 Ordering Physician: ENRIQUE CHUA Referring Physician: MARIO ALBERTO CHIN Performed By: CHUCKIE Canchola Reason For Study: SAVR Stenosis Exam Location: [facility]. Interpretation Summary -Left ventricle is [...] suggestsworsening stenosis. Mitral regurgitation is similar. Procedure Complete-[id number]. Satisfactory quality. There is normal sinus rhythm. 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
--- OUTSIDE RECORDS SUMMARY | 2024-04-20 14:24 | XMS_ITS | Encounter Summary ---
Author Organization [facility] [place] [address] Care Team Providers Care Services Rep Name Role Phone Magdalena Acosta MD Primary Care Provider [phone] Encounter Details Date Type Department Care Team (Late st Contact Info) Description 05/08/2023 [place] [phone] Luis Felipe Ott MD [facility] [place] [address] Social History Tobacco Use Types Packs/Day Years [...] Referring Provider: Nitesh Baltazar Patient Location: [facility] Presenting Symptoms per OSH: 67 year old [...] diuresis with IV furosemide 20 x 1 (dncpseixut64/47 at rheumatology appointment), SpO2 85% on RA -> 95% on 2L NC, HR 120s. Examination significant for decreased breath sounds at the bases. Pertinent Diagnostic Findings: CBC - Hgb 10.5 CMP - Cr 1.1 BNP 79649 HsTrop 1358 Lactate 1.6 D-dimer 1183, CTPE pending CXR demonstrated pulmonary vascular congestion US showed bilateral b lines Bedside echo reportedly similar to prior TTE for LV function OSH Interventions: ASA 324 Heparin gtt Plan: Transfer to [facility] Above recommendations/plans are based on my conversation with the referring provider. I have not personally interviewed or examined this patient. Luis Felipe Ott MD Dispensing Lead Received a call from provider emergently at 715am. Mentating well and BP 87/53. HR 108 and diursingwell. They were about to start phenylephrine which I stressed was not a good option given concern for severe and increasing afterload. She is warm on exam, mentating and urinating and we do not need to amrit a BP if those things remain stable. Nico Segura, PGY-6 Dispensing Lead [id number] documented in this encounter Plan of Treatment Upcoming Encounters Date Type Department Care Team (Late st Contact Info) Description 05/12/2024 9:00 AM EDT Appointment Hematology [place] [address] 05/12/2024 10:00 AM EDT Office Visit Hematology [place] [phone] Markel Borjas MD [facility] DR HEMATOLOGY [place] [address] 03/01/2025 4:15 PM EDT Office Visit Dermatology at [place] [address] [place] [address] Marek Bonilla MD [address] [place] [address] documented as of this encounter Visit Diagnoses Not on filedocumented in this encounter Care Teams Services Rep Relationship Specialty Start Date End Date Magdalena Acosta MD [address] [place] [address] PCP - General Family Medicine 02/05/23 documented as of this encounter
--- OUTSIDE RECORDS SUMMARY | 2024-04-20 14:24 | XMS_ITS | Encounter Summary ---
Author Organization [facility] [place] [address] Care Team Providers Care District Manager Primary Care Sales Name Role Phone Magdalena Acosta MD Primary Care Provider [phone] Encounter Details Date Type Department Care Team (Latest Contact Info) Description 02/05/2023 9:33 PM EDT - 02/05/2023 11:59 PM EDT [place] [phone] Discharge Disposition: Home Social History Tobacco Use [...] AM EDT Appointment [place] [address] 05/12/2024 10:00 AM EDT Office Visit [place] [address] Markel Borjas MD [facility] [address] [place] [address] 03/01/2025 4:15 PM EDT Office Visit Dermatology at [place] [address] [place] [address] Marek Bonilla MD [address], [place] [address] documented as of this encounter Procedures Procedure Name Priority Date/Time Associated Diagnosis Comments SURGICAL PATHOLOGY REPORT Routine 02/05/2023 3:00 PM EDT documented in this encounter Results * Surgical Pathology Report (02/05/2023 3:00 PM EDT) Final Diagnosis [id number] ? Location: [facility] The signing pathologist has (i) examined the relevant preparation(s) for the specimen(s) and (ii) rendered or confirmed the diagnosis(es). . ?Surgical Pathology DIAGNOSIS Left upper back, skin punch biopsy: - ??Compound dysplastic ??melanocytic nevus with moderate atypia, transected at peripheral specimen edges ?? (see discussion) Electronically signed by: ?Vanna CULP, Jesse Shields Verified: ??02/16/2023 8:04 ?? Dermatopathologist Performed at: ??-[facility] Dept. of Pathology, [place] [address] Automatic Transmission Mechanic: Kunal Rubi MD, AP, ??CLIA Certificate: [id number] DISCUSSION If there is an obvious clinical [...] EDT Marek Bonilla MD PATHOLOGY/CYTOLOGY [facility] [place] [address] [facility] [place] [address] documented in this encounter Visit Diagnoses Not on filedocumented in this encounter Care Teams District Manager Primary Care Sales Relationship Specialty Start Date End Date Magdalena Acosta MD [address] [place] [address] PCP - General Family Medicine 02/05/23 documented as of this encounter
--- OUTSIDE RECORDS SUMMARY | 2024-04-20 14:24 | XMS_ITS | Encounter Summary ---
Author Organization [facility] [place] [address] Care Team Providers Care Service Delivery Supervisor Name Role Phone Magdalena Acosta MD Primary Care Provider [phone] Encounter Details Date Type Department Care Team [...] AM EDT Appointment Hematology [place] [address] 05/12/2024 10:00 AM EDT Office Visit [place]ology [place] [address] Markel Borjas MD [facility] [address] [place] [address] 03/01/2025 4:15 PM EDT Office Visit Dermatology at [place] [address] [place] [phone] Marek Bonilla MD [address] [facility] [place] [address] documented as of this encounter Visit Diagnoses Not on filedocumented in this encounter Care Teams Service Delivery Supervisor Relationship Specialty Start Date End Date Magdalena Acosta MD [address] [place] [address] PCP - General Family Medicine 02/05/23 documented as of this encounter
--- OUTSIDE RECORDS SUMMARY | 2024-04-20 14:24 | XMS_ITS | Encounter Summary ---
Author Organization [facility] Address [facility] [place] [address] Care Team Providers Care Compensation Expert Name Role Phone Deborah Quiroga ANURAG Primary Care Provider [phone] Encounter Details Date Type Department Care Team (Late st Contact Info) Description 01/14/2023 Refill Dermatology at [address] [address] Lupe Connor RN Social History [...] She would like the medication called into [facility] in [facility]. Discussed with Dr. Bonilla and he has approved refill of the Doxycycline 50 mg take one capsule by mouth daily in the evenings dispense 30 capsules with 2 refills. Patient notified. documented in this encounter Plan of Treatment Upcoming Encounters Date Type Department Care Team (Late st Contact Info) Description 05/12/2024 9:00 AM EDT Appointment Hematology [place] [address] 05/12/2024 10:00 AM EDT Office Visit [place]ematology [place] [address] Markel Borjas MD [facility] [address] HEMATOLOGY [place] [address] 03/01/2025 4:15 PM EDT Office Visit Dermatology at [place] [address] [place] [address] Marek Bonilla MD [address], [address] [place] [address] documented as of this encounter Visit Diagnoses Not on filedocumented in this encounter Care Teams Compensation Expert Relationship Specialty Start Date End Date Deborah Quiroga APRN PCP - General Family Medicine 03/24/16 02/04/23 documented as of this encounter
--- OUTSIDE RECORDS SUMMARY | 2024-04-20 14:24 | XMS_ITS | Encounter Summary ---
[place] [address] Care Team Providers Care Ironing Worker Name Role Phone Magdalena Acosta MD Primary Care Provider [phone] Reason for Visit * Reason Comments Annual Exam Encounter Details Date Type Department Care Team (Late st Contact Info) Description 02/05/2023 2:30 PM EDT Office Visit Dermatology at [address] [address] Marek Bonilla MD [address] [facility] [place] [address] Rosacea; Ocular rosacea; Nevus Social History Tobacco [...] cutaneous and ocular 2. Previously told by data processing systems project planner that she had corneal tears from her [...] AM EDT Appointment Hematology [place] [address] 05/12/2024 10:00 AM EDT Office Visit Hematology [place] [address] Markel Borjas MD [facility] [address] HEMATOLOGY [place] [address] 03/01/2025 4:15 PM EDT Office Visit Dermatology at [place] [address] [place] [address] Marek Bonilla MD [address] [facility], [place] [address] documented as of this encounter Visit Diagnoses Diagnosis Rosacea Ocular rosacea Rosacea Nevus Benign neoplasm of skin, site unspecified documented in this encounter Care Teams Ironing Worker Relationship Specialty Start Date End Date Magdalena Acosta MD [address] [place] [address] PCP - General Family Medicine 02/05/23 documented as of this encounter
--- OUTSIDE RECORDS SUMMARY | 2024-04-20 14:24 | XMS_ITS | Encounter Summary ---
Author Organization [facility] [place] [address] Care Team Providers Care Power Plant Mechanic Name Role Phone Magdalena Acosta MD Primary Care Provider [phone] Encounter Details Date Type Department Care Team [...] AM EDT Appointment Hematology [place] [address] 05/12/2024 10:00 AM EDT Office Visit Hematology [place] [address] Markel Borjas MD [facility] [address] HEMATOLOGY [place] [address] 03/01/2025 4:15 PM EDT Office Visit Dermatology at [place] [address] [facility] [place] [address] Marek Bonilla MD [address] [facility], [place] [address] documented as of this encounter Visit Diagnoses Not on filedocumented in this encounter Care Teams Power Plant Mechanic Relationship Specialty Start Date End Date Magdalena Acosta MD [address] [place] [address] PCP - General Family Medicine 02/05/23 documented as of this encounter
--- OUTSIDE RECORDS SUMMARY | 2024-04-20 14:24 | XMS_ITS | Encounter Summary ---
Author Organization [facility] Address [place] [address] Care Team Providers Care Home Health Care Case Manager Name Role Phone Magdalena Acosta MD Primary Care Provider [phone] Encounter Details Date Type Department Care Team (Late st Contact Info) Description 04/27/2023 3:00 PM EDT Office [place] [address] Magdalena Peralta MD [facility] DR [place] [address] Mixed connective tissue disease Social History Tobacco [...] 1:5120 speckled; VIC negative; Myositis panel with COMMUNITY MARKETING MANAGER ab 149.1 (positive); Anti U1RNP IgG [...] EDT Appointment Hematology [place] [address] 05/12/2024 10:00 AM EDT Office Visit Hematology [place] [address] Markel Borjas MD [facility] [address] HEMATOLOGY [place] [address] 03/01/2025 4:15 PM EDT Office Visit Dermatology at [place] [address] [place] [address] Marek Bonilla MD [address], [place] [address] documented as of this encounter Visit Diagnoses Diagnosis Mixed connective tissue disease Other specified diffuse disease of connective tissue documented in this encounter Care Teams Home Health Care Case Manager Relationship Specialty Start Date End Date Magdalena Acosta MD [address] [place] [address] PCP - General Family Medicine 02/05/23 documented as of this encounter
--- OUTSIDE RECORDS SUMMARY | 2024-04-20 14:24 | XMS_ITS | Encounter Summary ---
Author Organization [facility] [place] [address] Care Team Providers Care Rn Clinical Coordinator Name Role Phone Magdalena Acosta MD Primary Care Provider [phone] Encounter Details Date Type Department Care Team [...] AM EDT Appointment Hematology [place] [address] 05/12/2024 10:00 AM EDT Office Visit Hematology [place] [address] Markel Borjas MD [facility] [address] HEMATOLOGY [place] [address] 03/01/2025 4:15 PM EDT Office Visit Dermatology at [place] [address] [facility] [place] [address] Marek Bonilla MD [address] [facility] [place] [address] documented as of this encounter Visit Diagnoses Not on filedocumented in this encounter Care Teams Rn Clinical Coordinator Relationship Specialty Start Date End Date Magdalena Acosta MD [address] [place] [address] PCP - General Family Medicine 02/05/23 documented as of this encounter
--- OUTSIDE RECORDS SUMMARY | 2024-04-20 14:24 | XMS_ITS | Encounter Summary ---
Author Organization [facility] Address [facility] [place] [address] Care Team Providers Care Social Studies Department Chair Name Role Phone Magdalena Acosta MD Primary Care Provider [phone] Reason for Visit * Consultation (Routine) - Closed Specialty Diagnoses / Procedures Referred By Contac t Referred To Contact Rheumatology Diagnoses Weakness Kyra Haas MD [facility] [address] [place] [address] [facility] [address] [place] [phone] Referral ID Status Reason Start Date Expiration Date V isits Requested Visits Authorized [id number] Closed Consult, Test & Treat PCP Updated and/or Approved 02/25/2023 02/25/2024 6 6 Encounter Details Date Type Department Care Team (Late st Contact Info) Description 03/18/2023 1:00 PM EDT Office [place] [address] Kia Viramontes DO [facility] [place] [address] Magdalena Peralta MD [facility] [place] [address] Positive FRANCISCO (antinuclear antibody) Social [...] 1:5120 speckled VIC negative Myositis panel with ENVIRONMENTAL EMERGENCIES PLANNER ab 149.1 (positive) Anti U1RNP IgG 119 [...] a chair without assistance of upper extremities. 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 Recommendations: #mixed connective tissue disease Start hydroxychloroquine 200 mg qd Labs today: repeat FRANCISCO, dsDNA, complements, CBC, CMP, CK, ESR, CRP Follow up 1 month The patient was seen and discussed with Dr. Wander Peralta MD Rheumatology Fellow Pager: [phone] CC: Kyra Haas * Kia Viramontes DO [...] AM EDT Appointment [place]ematology [place] [address] 05/12/2024 10:00 AM EDT Office Visit [place]ematology [place] [address] Markel Borjas MD [facility] [place] [address] 03/01/2025 4:15 PM EDT Office Visit Dermatology at [place] [address] [place] [address] Marek Bonilla MD [address] [facility], [place] [address] documented as of this encounter Results * Comprehensive metabolic panel (non-fasting) (03/18/2023 2:14 PM EDT) [facility] Signature Glucose 93 65 - 199 mg/dL [facility] Comment:Diabetes: >=200 mg/d L plus symptoms Blood Urea Nitrogen 18 8 - 18 mg/dL [facility] Creatinine 0.99 0.70 - 1.20 mg/dL [facility] Sodium 141 135 - 145 mmol/L [facility] Potassium 4.5 3.5 - 5.0 mmol/L [facility] Comment: Please note: ??Patients with WBC >100,000 may have falsely elevated Potassium levels. ??For accurate Potassium quantification in these patients send serum separator tube (gold top) for subsequent determinations. ??Contact the Clinical Chemistry Laboratory if there are any questions. Chloride 106 98 - 107 mmol/L [facility] Carbon Dioxide 24 22 - 31 mmol/L [facility] Anion Gap 11 5 - 15 mmol/L [facility] Calcium 10.0 8.5 - 10.5 mg/dL [facility] Protein, Total 7.3 6.1 - 8.0 g/dL [facility] Albumin 4.3 3.2 - 5.2 g/dL [facility] Aspartate Aminotransferase 26 0 - 30 unit/L [facility] Alanine Aminotransferase 11 0 - 30 unit/L [facility] Alkaline Phosphatase 91 35 - 105 unit/L [facility] Bilirubin, Total 0.4 0.2 - 1.3 mg/dL [facility] Est Glomerular Filtration Rate 62 >=60 mL/min/1. 73 m?? [facility] Comment: This patient's estimated GFR [...] DO CHEMISTRY ORDERABL ES Performing Organization Address City/State/[facility] Co de Phone Number [facility] [place] [address] * (ABNORMAL) FRANCISCO Ab by IFA (03/18/2023 2:14 PM EDT) FRANCISCO Ab Screen Test ? Result ?Flag ??Unit ??RefValue Antinuclear Ab, HEp-2 ?Positive 1:2560 ??@ ?<1:80 (Negative) ??Substrate, S ? ADDITIONAL INFORMATION --------- ?Method: Immunofluorescence using HEp-2 cellular substrate. ??FRANCISCO Titer: ? 1:2560 ??FRANCISCO Pattern: ? Speckled ?Test Performed by: ?[facility] ?[address] [id number] ?Front End Technician: Raymond Chaudhry M.D. Ph.D.; CLIA# [id number] (A) [facility] Blood 03/18/2023 2:14 PM EDT 03/18/2023 3:02 PM EDT Narrative Resulting Agency Comment Spec In Lab Kia Viramontes DO CHEMISTRY ORDERABL ES [place] [address] * DNA Antibody (Double-Stranded) (03/18/2023 2:14 PM EDT) dsDNA Ab <0.6 <=15.0 IU/mL [facility] Comment: <10 negative 10-15 equivocal >15 positive This dsDNA antibody result was generated using a fluoroenzyme immunoassay on the [employer] 250 analyzer. This quantitative test is designed to detect IgG antibodies directed against double stranded DNA in human serum. The presence of antibodies that recognize dsDNA is a highly specific marker for systemic lupus erythematosus. Please note that as of 05/26/2022 that this testing is performed by the Special Chemistry Laboratory at [facility]. This change in testing location is associated with a change is testing method and reference intervals. Please review the results of this test in association with the posted reference intervals. Blood 03/18/2023 2:14 PM EDT 03/19/2023 7:19 AM EDT Narrative Resulting Agency Comment Spec In Lab Kia Viramontes DO LAB SEND OUT ORDER JODIE Performing Organization Address [facility] Co de Phone Number [place] [address] * CK (03/18/2023 2:14 PM EDT) Creatine Kinase 38 0 - 160 unit/L [facility] Blood 03/18/2023 2:14 PM EDT 03/18/2023 2:24 PM EDT Narrative Resulting Agency Comment Spec In Lab Kia Viramontes DO CHEMISTRY ORDERABL ES Performing Organization Address [facility] Co de Phone Number [place] [place] [address] * C4 Complement (03/18/2023 2:14 PM EDT) Complement C4 30 10 - 40 mg/dL [facility] Blood 03/18/2023 2:14 PM EDT 03/18/2023 2:24 PM EDT Narrative Resulting Agency Comment Spec In Lab Kia D Wander DO CHEMISTRY ORDERABL ES Performing Organization Address [facility] Co de Phone Number [place] [place] [address] * C3 Complement (03/18/2023 2:14 PM EDT) Complement C3 142 90 - 180 mg/dL [facility] Blood 03/18/2023 2:14 PM EDT 03/18/2023 2:24 PM EDT Narrative Resulting Agency Comment Spec In Lab Kia Viramontes DO CHEMISTRY ORDERABL ES Performing Organization Address [facility] Co de Phone Number [place] [address] * CRP, acute inflammation (03/18/2023 2:14 PM EDT) C-Reactive Protein 3.0 <=4.9 mg/L [facility] Blood 03/18/2023 2:14 PM EDT 03/18/2023 2:24 PM EDT Narrative Resulting Agency Comment Spec In Lab Kia Viramontes DO CHEMISTRY ORDERABL ES Performing Organization Address [facility] Co de Phone Number [place] [address] * (ABNORMAL) Sedimentation rate (03/18/2023 2:14 PM EDT) Sedimentation Rate Automated 68(H) 2 - 39 mm/hr [facility] Comment: Effective July 12, 2019 new capillary photometric technology has resulted in a change in reference ranges. It is recommended that each ESR result be reviewed with its own age appropriate reference range. Blood 03/18/2023 2:14 PM EDT 03/18/2023 2:24 PM EDT Narrative Resulting Agency Comment Spec In Lab Kia Viramontes DO HEMATOLOGY ORDERAB LES Performing Organization Address [facility] Co de Phone Number [place] [address] documented in this encounter Visit Diagnoses Diagnosis Positive FRANCISCO (antinuclear antibody) Other and unspecified nonspecific immunological findings documented in this encounter Care Teams Social Studies Department Chair Relationship Specialty Start Date End Date Magdalena Acosta MD [address] [place] [address] PCP - General Family Medicine 02/05/23 documented as of this encounter
--- OUTSIDE RECORDS SUMMARY | 2024-04-20 14:24 | XMS_ITS | Encounter Summary ---
Author Organization [facility] [place] [address] Care Team Providers Care Founder And Ceo Name Role Phone Magdalena Acosta MD Primary [...] AM EDT Appointment Hematology [place] [address] 05/12/2024 10:00 AM EDT Office Visit Hematology [place] [address] Markel Borjas MD [facility] [address] [place] [address] 03/01/2025 4:15 PM EDT Office Visit Dermatology at [place] [address] [facility] [place] [address] Marek Bonilla MD [address] [facility], [place] [address] documented as of this encounter Visit Diagnoses Not on filedocumented in this encounter Care Teams Founder And Ceo Relationship Specialty Start Date End Date Magdalena Acosta MD [address] [place] [address] PCP - General Family Medicine 02/05/23 documented as of this encounter
--- OUTSIDE RECORDS SUMMARY | 2024-04-20 14:24 | XMS_ITS | Encounter Summary ---
Author Organization [facility] [place] [address] Care Team Providers Care Relations Mgr Name Role Phone Deborah Quiroga APRN Primary Care Provider [phone] Encounter Details Date Type Department Care Team (Late st Contact Info) Description 11/09/2022 11:30 AM EDT - 11/09/2022 12:30 PM EDT [place] [address] Nitesh Escobedo MD [facility] [place] [place] [address] CARDIAC CATHETERIZATION Social History Tobacco Use Types [...] 02/05/2023 2:30 PM Marek Bonilla MD [facility] New Medications to be Picked Up None For questions regarding this document or issues relating to this hospitalization on the Medical Service, please contact your inpatient physician through the [facility] Rounding And Backing Machine Operator . Issues afterhours and on weekends will be handled by the Hospitalist staff on-call. * Attachments The following attachments cannot be sent through Care Everywhere. * Coronary Angiogram: Post-op (Monegasque) * Right Heart Catheterization: Pulmonary Artery Catheterization: Post-op (Monegasque) documented in this encounter Medications at Time of Discharge Medication Sig Dispensed Refills Start Date End Date nystatin (MYCOSTATIN) 100,000 unit/gram Powder Apply topically 2 times daily as needed. 10/22/2022 ProbityTouch Verio test strips Strip USE DAILY 01/03/2022 ProbityToKadmon Delica Plus Lancet 33 gauge Misc USE [...] - 11/09/2022 11:20 AM EDT . [facility] Interventional Cardiology Adult Pre-Procedure H&P Update: Cardiac Catheterization Purnima Thacker [id number] 1955 Chief Complaint: BONILLA HPI: Purnima Thacker [...] MD Interventional Cardiology 11/09/22 11:43 AM [facility] Pager: [phone] documented in this encounter Plan of Treatment Upcoming Encounters Date Type Department Care Team (Late st Contact Info) Description 05/12/2024 9:00 AM EDT Appointment Hematology [place] [address] 05/12/2024 10:00 AM EDT Office Visit Hematology [place] [address] Markel Borjas MD [facility] [address] HEMATOLOGY [place] [address] 03/01/2025 4:15 PM EDT Office Visit Dermatology at [place] [address] [place] [address] Marek Bonilla MD [address] [place] [address] documented as of this encounter Procedures Procedure Name Priority Date/Time Associated Diagnosis Comments CARDIAC CATHETERIZATION Routine 11/10/19 1:05 PM EDT Aortic valve stenosis, etiology of cardiac valve disease unspecified Cath Plmt Left Heart Cath & Arts W/Inj & Angio Img S&I ([id number]) 11/09/2022 11:51 AM EDT Aortic valve stenosis, etiology of cardiac valve disease unspecified EKG 12-LEAD Routine 11/09/2022 11:17 AM EDT Aortic valve stenosis, etiology of cardiac valve disease unspecified documented in this encounter Results * CARDIAC CATHETERIZATION (11/09/2022 1:05 PM EDT) Anatomical Region Laterality Modality Other Narrative 11/09/2022 2:01 PM EDT ?[facility] ? Cardiac Catheterization/Intervention Report ? Patient Name: Kirstie, Purnima M. ? Procedure Date: 11/09/2022 ? A #: [id number] ? Primary Physician: Nitesh Escobedo ? Case #: [id number] ? File Name: [id number] ? Catheterization Order Number: [id number] ? [facility] ? Final Report [place], [place] ? Patient Name: ? Purnima M. Kirstie ? ID#: ?[id number] ? : ?1955 ? Procedure Date: ? [...] was designated as ASA Class III. The [facility] clinical frailty scale ?is 4: Vulnerable. [...] (Bezet) 457 ms MUSE SYSTEM Calculated P [place] 44 degrees MUSE SYSTEM Calculated R [place] 33 degrees MUSE SYSTEM Calculated T [place] 30 degrees MUSE SYSTEM INTERPRETATION Sinus rhythm Occasional Premature ventricular complexes Otherwise normal ECG When compared with ECG of 21-SEP-2016 12:26, Premature ventricular complexes are now Present AK interval has decreased Nonspecific T wave abnormality has replaced inverted T waves in Inferior leads I personally reviewed the tracing and edited the fellows interpretation Confirmed by fellow MD Anitha, Carissa ([id number]) on 11/09/2022 6:17:28 PM Confirmed by Elsa [...] MD) documented in this encounter Care Teams Relations Mgr Relationship Specialty Start Date End Date Junaid Deborah Shields, SOCIAL SCIENCE PROFESSOR PCP - General Family Medicine 03/24/16 02/04/23 documented as of this encounter
--- OUTSIDE RECORDS SUMMARY | 2024-04-20 14:25 | XMS_ITS | Encounter Summary ---
[place] [address] Care Team Providers Care Continuous Towel Roller Name Role Phone Ashley Quirogazac Shields APRN Primary Care Provider [phone] Reason for Visit * Reason Comments Annual Exam Encounter Details Date Type Department Care Team (Late st Contact Info) Description 01/09/2022 3:15 PM EDT Office Visit Dermatology at [address] [address] Marek Bonilla MD [address] [facility], [address] A DERMATOLOGY [place], [place] [address] Rosacea Social History Tobacco Use Types Packs/Day [...] cutaneous and ocular 2. Previously told by new autos delivery driver that she had corneal tears from her [...] refills. We will call this into her [facility] pharmacy in [place] 3. Continue metronidazole 0.75% gel applying every [...] AM EDT Appointment Hematology [place] [address] 05/12/2024 10:00 AM EDT Office Visit Hematology [place] [address] Markel Borjas MD [facility] DR HEMATOLOGY [place] [address] 03/01/2025 4:15 PM EDT Office Visit Dermatology at [place] [address] [facility] [place] [address] Marek Bonilla MD [address] [facility], [place] [address] documented as of this encounter Visit Diagnoses Diagnosis Rosacea documented in this encounter Care Teams Continuous Towel Roller Relationship Specialty Start Date End Date Deborah Quiroga APRN PCP - General Family Medicine 03/24/16 02/04/23 documented as of this encounter
--- OUTSIDE RECORDS SUMMARY | 2024-04-20 14:25 | XMS_ITS | Encounter Summary ---
[place] [address] Care Team Providers Care Dry Transfer Worker Name Role Phone Deborah Quiroga APRN Primary Care Provider [phone] Reason for Referral * Consultation (Routine) - Closed Specialty Diagnoses / Procedures Referred By Contac t Referred To Contact Rheumatology Diagnoses Positive FRANCISCO (antinuclear antibody) Arthralgia, unspecified joint Sandy Wu APRN [address] [place] [address] [facility] [address] [place] [phone] Referral ID Status Reason Start Date Expiration Date V isits Requested Visits Authorized [id number] Closed Consult, Test & Treat PCP Updated and/or Approved 01/01/2022 01/01/2023 6 6 Encounter Details Date Type Department Care Team (Latest Contact Info) Description 01/01/2022 Transcribe Orders eDH Incoming Referrals [phone] Sandy Wu APRN [address] [place], [place] [id number] Positive FRANCISCO (antinuclear antibody); Arthralgia, unspecified joint [...] AM EDT Appointment Hematology [place] [address] 05/12/2024 10:00 AM EDT Office Visit Hematology [place] [address] Markel Borjas MD [facility] [address] [place] [address] 03/01/2025 4:15 PM EDT Office Visit Dermatology at [place] [address] [facility] [place] [address] Marek Bonilla MD [address] [facility] [address] [place] [address] Scheduled Referrals Name Type Priority Associated Diagnoses Orde r Schedule Referral to Rheumatology Outpatient Referral Routine Positive FRANCISCO (antinuclear antibody) Arthralgia, unspecified joint Ordered: 01/01/2022 documented as of this encounter Visit Diagnoses Diagnosis Positive FRANCISCO (antinuclear antibody) Other and unspecified nonspecific immunological findings Arthralgia, unspecified joint documented in this encounter Care Teams Dry Transfer Worker Relationship Specialty Start Date End Date Deborah Quiroga APRN PCP - General Family Medicine 03/24/16 02/04/23 documented as of this encounter
--- OUTSIDE RECORDS SUMMARY | 2024-04-20 14:25 | XMS_ITS | Encounter Summary ---
Author Organization [facility] Address [facility] E[address] [address] Care Team Providers Care Workers Compensation Claims Examiner Name Role Phone Deborah Quiroga APRN Primary Care Provider [phone] Encounter Details Date Type Department Care Team (Late st Contact Info) Description 01/09/2022 Refill Dermatology at [address] [address] Lupe Connor RN Social History [...] AM EDT Appointment Hematology [place] [address] 05/12/2024 10:00 AM EDT Office Visit Hematology [place] [address] Markel Borjas MD [facility] [address] [place] [address] 03/01/2025 4:15 PM EDT Office Visit Dermatology at [address] [address] Marek Bonilla MD [address] [facility] [address] [place] [address] documented as of this encounter Visit Diagnoses Not on filedocumented in this encounter Care Teams Workers Compensation Claims Examiner Relationship Specialty Start Date End Date Deborah Quiroga APRN PCP - General Family Medicine 03/24/16 02/04/23 documented as of this encounter
--- OUTSIDE RECORDS SUMMARY | 2024-04-20 14:25 | XMS_ITS | Encounter Summary ---
Author Organization [facility] Address [facility] [place] [address] Care Team Providers Care Worm Farm Laborer Name Role Phone Deborah Quiroga APRN Primary Care Provider [phone] Encounter Details Date Type Department Care Team (Late st Contact Info) Description 06/18/2017 11:00 AM EST Office Visit Hematology [place] [address] [facility] [address] [place] [address] Neutropenia, unspecified type Social History Tobacco Use [...] 06/18/2017 11:00 AM EST Hematology Outpatient Clinic [facility] Hematology Outpatient Consult Note CC: 60 year [...] TOUCH PREP, CLOT SECTION, CORE ??BIOPSY); [OSR# [id number], COLLECTED 06/23/2016, 19 SLIDES]: ?1. ??Normocellular marrow [...] a clonal lymphoproliferative or myeloproliferative disorder (OSR# [id number]) Chromosome analysis on the marrow aspirate revealed [...] working the same job and participating in [employer] patients. Past Medical/Surgical History: 1. Leukopenia -element of neutropenia, as noted above 2. Aortic Stenosis -severe -AVR surgery 3. Hypercholesterolemia 4. Depression 5. Hypertension 6. 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 Extremities: No edema. Labs: Hgb= 13 Lstx=042 ANC= 0.6 Imaging As above - reviewed [...] AM EDT Appointment Hematology [place] [address] 05/12/2024 10:00 AM EDT Office Visit Hematology [place] [address] [facility] [place] [address] 03/01/2025 4:15 PM EDT Office Visit Dermatology at [place] [address] [place] [address] Marek Bonilla MD [address] [facility] [address] [place] [address] documented as of this encounter Visit Diagnoses Diagnosis Neutropenia, unspecified type documented in this encounter Care Teams Worm Farm Laborer Relationship Specialty Start Date End Date Deborah Quiroga APRN PCP - General Family Medicine 03/24/16 02/04/23 documented as of this encounter
--- OUTSIDE RECORDS SUMMARY | 2024-04-20 14:25 | XMS_ITS | Encounter Summary ---
Author Organization [facility] [place] [address] Care Team Providers Care Wild Life Manager Name Role Phone Deborah Quiroga APRN Primary Care Provider [phone] Encounter Details Date Type Department Care Team (Latest Contact Info) Description 07/03/2022 12:28 PM EST - 07/03/2022 1:35 PM EST Hospital Encounter Hematology [place] [address] Chronic idiopathic neutropenia Discharge Disposition: Home Social [...] AM EDT Appointment Hematology [place] [address] 05/12/2024 10:00 AM EDT Office Visit Hematology [place] [address] Markel Borjas MD [facility] [address] [place] [address] 03/01/2025 4:15 PM EDT Office Visit Dermatology at [place] [address] [place] [phone] Marek Bonilla MD [address], [place] [address] documented as of this encounter Procedures Procedure [...] 12:40 PM EST) Neutrophil % 72.9 % [facility] Neutrophil Absolute 2.61 1.70 - 6.10 x10(3)/mc L [facility] Lymph % 18.4 % [facility] Lymphocytes Abs 0.7(L) 0.9 - 3.2 x10(3)/mc L [facility] Monocyte % 8.4 % [facility] Monocyte Abs 0.3 0.3 - 0.9 x10(3)/mc L [facility] Eos % 0.0 % [facility] Eosinophils Abs 0.0 0.0 - 0.4 x10(3)/mc L [facility] Basophil % 0.3 % [facility] Baso Absolute 0.0 0.0 - 0.1 x10(3)/mc L [facility] Immature Gran % 0.00 % [facility] Comment: Immature granulocytes(IG's)percentage and absolute count will include metamyelocytes, myelocytes, and promyelocytes. Blood smears from CBCs yielding IG's will be scanned manually for concordance. If this scan disagrees with the automated IG or if promyelocytes are noted, a manual differential will be performed. Immature Gran Absolute 0.00 0.00 - 0.04 x10(3)/mc L [facility] Blood 07/03/2022 12:4 0 PM EST 07/03/2022 1:03 PM EST Narrative Resulting Agency Comment Spec In Lab Markel Borjas MD HEMATOLOGY ORDERAB LES [facility] [place] [address] * (ABNORMAL) Hemogram (07/03/2022 12:40 PM EST) White Blood Cell 3.6(L) 4.0 - 9.5 x10(3)/ L [facility] Red Blood Cell 3.61(L) 4.00 - 5.21 x10(6)/mc L [facility] Hemoglobin 11.7 11.7 - 15.5 g/dL [facility] Hematocrit 34.5(L) 35.7 - 45.8 % [facility] Mean Cell Volume 95.6(H) 82.6 - 94.4 fL [facility] Mean Cell Hemoglobin 32.4(H) 27.1 - 32.0 pg [facility] Mean Cell Hemoglobin Concentration 33.9 31.7 - 35.0 g/dL [facility] Platelet 171 145 - 357 x10(3)/mc L [facility] RDW Standard Deviation 40.5 37.0 - 46.0 fL [facility] RDW coefficient of variation 11.5 11.5 - 14.1 % [facility] Mean Platelet Volume 9.2 7.6 - 12.9 fL [facility] NRBC% auto 0.0 % [facility] NRBC Absolute 0.000 0.000 - 0.000 x10(3)/ L [facility] Blood 07/03/2022 12:4 0 PM EST 07/03/2022 1:03 PM EST Narrative Resulting Agency Comment Spec In Lab Markel Borjas MD HEMATOLOGY ORDERAB LES [facility] [place] [address] * (ABNORMAL) Comprehensive metabolic panel (non-fasting) (07/03/2022 12:40 PM EST) Glucose 92 65 - 199 mg/dL [facility] Comment:Diabetes: >=200 mg/d L plus symptoms Blood Urea Nitrogen 22(H) 8 - 18 mg/dL [facility] Creatinine 0.80 0.70 - 1.20 mg/dL [facility] [...] [facility] Carbon Dioxide 23 22 - 31 mmol/L [facility] Anion Gap 11 5 - 15 mmol/L [facility] Calcium 10.1 8.5 - 10.5 mg/dL [facility] Protein, Total 7.6 6.1 - 8.0 g/dL [facility] Albumin 4.1 3.2 - 5.2 g/dL [facility] Aspartate Aminotransferase 25 0 - 30 unit/L [facility] Alanine Aminotransferase 14 0 - 30 unit/L [facility] Alkaline Phosphatase 80 35 - 105 unit/L [facility] Bilirubin, Total 0.3 0.2 - 1.3 mg/dL [facility] Est Glomerular Filtration Rate 81 >=60 mL/min/1. 73 m?? [facility] [...] Lab Markel Borjas MD CHEMISTRY ORDERABL ES [facility] [place] [address] documented in this encounter Visit Diagnoses Diagnosis Chronic idiopathic neutropenia Other neutropenia documented in this encounter Care Teams Wild Life Manager Relationship Specialty Start Date End Date Deborah Quiroga APRN PCP - General Family Medicine 03/24/16 02/04/23 documented as of this encounter
--- OUTSIDE RECORDS SUMMARY | 2024-04-20 14:25 | XMS_ITS | Encounter Summary ---
Author Organization [facility] [place] [address] Care Team Providers Care Floor Covering Contractor Name Role Phone Deborah Quiroga APRN Primary Care Provider [phone] Encounter Details Date Type Department Care Team (Late st Contact Info) Description 06/17/2022 Ancillary Procedure Radiology Library at [facility] [place] [phone] Deborah Quiroga APRN [address] [place] [phone] Social History Tobacco Use Types Packs/Day Years [...] AM EDT Appointment Hematology [place] [phone] 05/12/2024 10:00 AM EDT Office Visit Hematology [place] [phone] Markel Borjas MD [facility] HEMATOLOGY [place] [address] 03/01/2025 4:15 PM EDT Office Visit Dermatology at [place] [address] [place] [phone] Marek Bonilla MD [address], [place] [address] documented as of this encounter Procedures Procedure Name Priority Date/Time Associated Diagnosis Comments FILM LIBRARY STORAGE ONLY MR SPINE Routine 06/17/2022 12:00 AM EST documented in this encounter Results * Film Library- Storage Only MR Spine (06/17/2022 12:00 AM EST) Narrative [facility] - 06/18/2022 11:00 AM EST This exam is auto-finalizing. It's purpose is for storage only. Deborah Quiroga APRN IMG FILM LIBRARY OR DERABLES Performing Organization Address City/State/[facility] de Phone Number [place], [place] documented in this encounter Visit Diagnoses Not on filedocumented in this encounter Care Teams Floor Covering Contractor Relationship Specialty Start Date End Date Deborah Quiroga APRN PCP - General Family Medicine 03/24/16 02/04/23 documented as of this encounter
--- OUTSIDE RECORDS SUMMARY | 2024-04-20 14:25 | XMS_ITS | Encounter Summary ---
Author Organization [facility] Address [facility] [place] [address] Care Team Providers Care Cash Posting Specialist Name Role Phone Deborah Quiroga ANURAG Primary Care Provider [phone] Encounter Details Date Type Department Care Team (Late st Contact Info) Description 06/18/2017 External Results Hematology [place] [phone] Alexandrea Greenwood RN Neutropenia, unspecified type Social [...] AM EDT Appointment Hematology [place] [phone] 05/12/2024 10:00 AM EDT Office Visit Hematology [place] [address] Markel Borjas MD [facility] [place] [address] 03/01/2025 4:15 PM EDT Office Visit Dermatology at [address] [address] Marek Bonilla MD [address], [place] [address] documented as of this encounter Procedures Procedure [...] type documented in this encounter Care Teams Cash Posting Specialist Relationship Specialty Start Date End Date Deborah Quiroga APRN PCP - General Family Medicine 03/24/16 02/04/23 documented as of this encounter
--- OUTSIDE RECORDS SUMMARY | 2024-04-20 14:25 | XMS_ITS | Encounter Summary ---
Author Organization [facility] Erika [place] [address] Care Team Providers Care Limo Driver Name Role Phone Deborah Quiroga ANURAG Primary Care Provider [phone] Encounter Details Date Type Department Care Team (Late st Contact Info) Description 01/13/2021 Refill Dermatology at [address] [address] Taylor Malone, POCKET CREASER Social History Tobacco Use Types Packs/Day Years [...] AM EDT Appointment H[place]ology [place] [address] 05/12/2024 10:00 AM EDT Office Visit [place]ology [place] [phone] Markel Borjas MD [facility] HEMATOLOGY [place] [address] 03/01/2025 4:15 PM EDT Office Visit Dermatology at [address] [address] Marek Bonilla MD [address], [place] [address] documented as of this encounter Visit Diagnoses Not on filedocumented in this encounter Care Teams Limo Driver Relationship Specialty Start Date End Date Deborah Quiroga APRN PCP - General Family Medicine 03/24/16 02/04/23 documented as of this encounter
--- OUTSIDE RECORDS SUMMARY | 2024-04-20 14:25 | XMS_ITS | Encounter Summary ---
Author Organization [facility] [place] [address] Care Team Providers Care Building Specialist Name Role Phone Junaid Deborah Shields APRN Primary Care Provider [phone] Encounter Details Date Type Department Care Team (Latest Contact Info) Description 11/09/2022 10:37 AM EDT - 11/09/2022 4:53 PM EDT Hospital Encounter [place] [address] Nitesh Escobedo MD [facility] [place] [address] Aortic valve stenosis, etiology of cardiac valve [...] the [facility] . Issues afterhours and on weekends will [...] Pre-Procedure H&P Update: Cardiac Catheterization Purnima Thacker [id number] 1955 Chief Complaint: BONILLA HPI: Purnima Thacker [...] [facility] Pager: [phone] documented in this encounter Plan of Treatment Upcoming Encounters Date Type Department Care Team (Late st Contact Info) Description 05/12/2024 9:00 AM EDT Appointment [place]ology [place] [address] 05/12/2024 10:00 AM EDT Office Visit [place]emat[place] [address] Markel Borjas MD [facility] [address] HEMAT[place] [address] 03/01/2025 4:15 PM EDT Office Visit Dermatology at [place] [address] [place] [address] Marek Bonilla MD [address], [place] [address] documented as of this encounter Procedures Procedure Name Priority Date/Time Associated Diagnosis Comments CARDIAC CATHETERIZATION Routine 11/10/19 23 1:05 PM EDT Aortic valve stenosis, etiology of cardiac valve disease unspecified Cath Plmt Left Heart Cath & Arts W/Inj & Angio Img S&I ([id number]) 11/09/2022 11:51 AM EDT Aortic valve stenosis, etiology of cardiac valve disease unspecified EKG 12-LEAD Routine 11/09/2022 11:17 AM EDT Aortic valve stenosis, etiology of cardiac valve disease unspecified documented in this encounter Results * CARDIAC CATHETERIZATION (11/09/2022 1:05 PM EDT) Anatomical Region Laterality Modality Other Narrative 11/09/2022 2:01 PM EDT ?[facility] ? Cardiac Catheterization/Intervention Report ? Patient Name: Kirstie, Purnima M. ? Procedure Date: 11/09/2022 ? A #: [id number] ? Primary Physician: Nitesh Escobedo ? Case #: [id number] ? File Name: [id number] ? Catheterization Order Number: [id number] ? [facility] ? Final Report [place], [place] ? Patient Name: ? Purnima M. Kirstie ? ID#: ?[id number] ? : ?1955 ? Procedure Date: ? November 09, 2022 ? Case #: ? [id number] ? Room: ? 1 ? Case Physician: [...] (Bezet) 457 ms MUSE SYSTEM Calculated P Weiner 44 degrees MUSE SYSTEM Calculated R Weiner 33 degrees MUSE SYSTEM Calculated T Weiner 30 degrees MUSE SYSTEM INTERPRETATION Sinus rhythm Occasional Premature ventricular complexes Otherwise normal ECG When compared with ECG of 21-SEP-2016 12:26, Premature ventricular complexes are now Present [place] interval has decreased Nonspecific T wave abnormality has replaced inverted T waves in Inferior leads I personally reviewed the tracing and edited the fellows interpretation Confirmed by fellow MD Anitha, Carissa ([id number]) on 11/09/2022 6:17:28 PM Confirmed by Elsa [...] MD) documented in this encounter Care Teams Building Specialist Relationship Specialty Start Date End Date Deborah Quiroga, POLICE SERVICE TECHNICIAN PCP - General Family Medicine 03/24/16 02/04/23 documented as of this encounter
--- OUTSIDE RECORDS SUMMARY | 2024-04-20 14:25 | XMS_ITS | Encounter Summary ---
Author Organization [facility] Address [place] [address] Care Team Providers Care Workforce Management Coordinator Name Role Phone Junaid Deborah Shields APRN Primary Care Provider [phone] Reason for Visit * Reason Comments Schedule Office Case Pain right leg Encounter Details Date Type Department Care Team (Late st Contact Info) Description 12/11/2016 9:00 AM EDT Office Visit [place] [address] Markel Borjas MD [facility] [address] [place] [address] Neutropenia, unspecified type Social History Tobacco Use [...] 12/11/2016 9:00 AM EDT Hematology Outpatient Clinic [facility] Hematology [...] TOUCH PREP, CLOT SECTION, CORE ??BIOPSY); [OSR# [id number], COLLECTED 06/23/2016, 19 SLIDES]: ?1. ??Normocellular marrow [...] a clonal lymphoproliferative or myeloproliferative disorder (OSR# [id number]) Chromosome analysis on the marrow aspirate revealed [...] intact. Extremities: No edema. Labs: Hgb= 13 Kvhj=454 ANC= 0.5 Imaging As above - reviewed [...] AM EDT Appointment [place] [address] 05/12/2024 10:00 AM EDT Office Visit [place] [address] Markel Borjas MD [facility] [address] [place] [address] 03/01/2025 4:15 PM EDT Office Visit Dermatology at [place] [address] [place] [address] Marek Bonilla MD [address] [facility] [facility] [place] [address] documented as of this encounter Results * [...] type documented in this encounter Care Teams Workforce Management Coordinator Relationship Specialty Start Date End Date Deborah Quiroga, COUNSELING SERVICES MANAGER PCP - General Family Medicine 03/24/16 02/04/23 documented as of this encounter
--- OUTSIDE RECORDS SUMMARY | 2024-04-20 14:25 | XMS_ITS | Encounter Summary ---
[place] [address] Care Team Providers Care Sap Hana Architect Name Role Phone Ashley Quirogan Cornelius ANURAG Primary Care Provider [phone] Reason for Visit * Reason Comments Skin Check Encounter Details Date Type Department Care Team (Late st Contact Info) Description 11/11/2020 10:45 AM EDT Office Visit Dermatology at [address] [place] [address] Marek Bonilla MD [address] [facility], [address] A DERMATOLOGY [place], [place] [phone] Rosacea; Acrochordon Social History Tobacco Use Types [...] Discussed the possibility of getting this through [facility] or from the [facility] if necessary. She has not yet [...] AM EDT Appointment Hematology [place] [address] 05/12/2024 10:00 AM EDT Office Visit Hematology [place] [address] Markel Borjas MD [facility] [address] [place] [address] 03/01/2025 4:15 PM EDT Office Visit Dermatology at [place] [address] [facility] [place] [phone] Marek Bonilla MD [address] [facility], [place] [address] documented as of this encounter Visit Diagnoses Diagnosis Rosacea Acrochordon Unspecified hypertrophic and atrophic condition of skin documented in this encounter Care Teams Sap Hana Architect Relationship Specialty Start Date End Date Deborah Quiroga APRN PCP - General Family Medicine 03/24/16 02/04/23 documented as of this encounter
--- OUTSIDE RECORDS SUMMARY | 2024-04-20 14:25 | XMS_ITS | Encounter Summary ---
Author Organization [facility] [place] [address] Care Team Providers Care Backup Sawyer Name Role Phone Deborah Quiroga APRN Primary Care Provider [phone] Reason for Visit * Reason Comments Follow-up Encounter Details Date Type Department Care Team (Late st Contact Info) Description 07/03/2022 1:30 PM EST Office Visit [place]ology [place] [address] Markel Borjas MD [facility] [address] H[place]ATOLOG[place] [address] Consuelo Sommer APRN [facility] [address] [place]EMAT[place] [address] Chronic idiopathic neutropenia; Dysuria Social History Tobacco [...] in this encounter Progress Notes * Markel Borjsa MD - 07/03/2022 1:30 PM EST Hematology Outpatient Clinic [facility] Hematology Outpatient Consult Note CC: [...] TOUCH PREP, CLOT SECTION, CORE ??BIOPSY); [OSR# [id number], COLLECTED 06/23/2016, 19 SLIDES]: ?1. 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 Extremities: No edema. Labs: Hgb= 11.7 [place]=073 ANC= 2.5 Imaging As above - reviewed [...] AM EDT Appointment [place] [address] 05/12/2024 10:00 AM EDT Office Visit [place] [address] Markel Borjas MD [facility] [address] HEMATOLOG[place] [address] 03/01/2025 4:15 PM EDT Office Visit Dermatology at [place] [address] [facility] [place] [address] Marek Bonilla MD [address] [facility] [place] [address] documented as of this encounter Procedures Procedure [...] tract infection, submit a new specimen. (A) [facility] Clean Catch Urine 07/03/2022 2:00 PM EST 07/03/2022 5:55 PM EST Narrative Resulting Agency Comment Spec In Lab Markel Borjas MD MICROBIOLOGY - GEN ERAL ORDERABLES Performing Organization Address City/[facility]/ZIP Co de Phone Number [facility] [place] [address] * (ABNORMAL) Urinalysis Microscopic Exam (07/03/2022 2:00 PM EST) RBC, Urine 2 0 - 4 /HPF [facility] WBC, Urine 14(H) 0 - 5 /HPF [facility] Bacteria, Urine Occasional (A) None /HPF [facility] Squamous Epithelial Cells Raw Data, Urine 12(H) <=4 /HPF [facility] Hyaline Casts, Urine 2 0 - 2 /LPF [facility] Clean Catch Urine 07/03/2022 2:00 PM EST 07/03/2022 2:29 PM EST Narrative Resulting Agency Comment Spec In Lab Markel Borjas MD URINE ORDERABLES Performing Organization Address City/[facility]/ZIP Co de Phone Number [facility] [place] [address] * (ABNORMAL) Urinalysis with reflex Culture (07/03/2022 2:00 PM EST) Glucose, Urine Dipstick Negative Negative mg/dL [facility] Protein, Urine Dipstick 30(A) Negative mg/dL [facility] Bilirubin, Urine Dipstick Negative Negative mg/dL [facility] Comment: Clinical correlation required for positive Urine Bilirubin results as false positive may occur with some drugs and drug related products. If a false positive is suspected a serum total bilirubin should be considered if clinically indicated. Urobilinogen, Urine Dipstick Normal Normal mg/dL [facility] pH, Urn (dipstick) 5.5 5.0 - 8.0 [facility] Blood, Urine Dipstick Negative Negative mg/dL [facility] Ketone, Urine Dipstick Trace(A) Negative mg/dL [facility] Nitrite, Urine Dipstick Negative Negative [facility] Leukocytes, Urine Dipstick Small(A) Negative [facility] Appearance, Urine Dipstick Clear Clear [facility] Specific [place] Urine Automated 1.022 1.005 - 1.030 [facility] Color, Urine Dipstick Yellow Yellow [facility] Reflex to Culture Yes [facility] Clean Catch Urine 07/03/2022 2:00 PM EST 07/03/2022 2:29 PM EST Narrative Resulting Agency Comment Spec In Lab Markel Borjas MD URINE ORDERABLES [facility] [place] [address] * (ABNORMAL) Comprehensive metabolic panel (non-fasting) (07/03/2022 [...] ORDERABL ES [facility] [place] [address] documented in this encounter Visit Diagnoses Diagnosis Chronic idiopathic neutropenia Other neutropenia Dysuria documented in this encounter Care Teams Backup Sawyer Relationship Specialty Start Date End Date Deborah Quiroga APRN PCP - General Family Medicine 03/24/16 02/04/23 documented as of this encounter
--- OUTSIDE RECORDS SUMMARY | 2024-04-20 14:25 | XMS_ITS | Encounter Summary ---
Author Organization [facility] Address [facility] [place] [address] Care Team Providers Care Dining Car Waiter/Waitress Name Role Phone Ashley Quirogan Cornelius ANURAG Primary Care Provider [phone] Encounter Details Date Type Department Care Team (Late st Contact Info) Description 03/04/2020 External Results Hematology [place] [phone] TherBhumi villela Social History Tobacco Use Types [...] AM EDT Appointment Hematology [place] [address] 05/12/2024 10:00 AM EDT Office Visit Hematology [place] [address] Markel Borjas MD [facility] [address] [place] [address] 03/01/2025 4:15 PM EDT Office Visit Dermatology at [address] [phone] Marek Bonilla MD [address], [place] [address] documented as of this encounter Procedures Procedure [...] Provider HEMATOLOGY ORDERA BLES Performing Organization Address City/State/[facility] Co de Phone Number EXTERNAL LAB documented in this encounter Visit Diagnoses Not on filedocumented in this encounter Care Teams Dining Car Waiter/Waitress Relationship Specialty Start Date End Date Deborah Quiroga, REHEATER PCP - General Family Medicine 03/24/16 02/04/23 documented as of this encounter
--- OUTSIDE RECORDS SUMMARY | 2024-04-20 14:25 | XMS_ITS | Encounter Summary ---
Author Organization [facility] [place] [address] Care Team Providers Care Lawn Service Supervisor Name Role Phone Ashley Quirogan Cornelius ANURAG Primary Care Provider [phone] Encounter Details Date Type Department Care Team (Late st Contact Info) Description 11/02/2022 [place] [phone] Emily Lyons PA [facility] [place] [address] Aortic valve stenosis, etiology of cardiac valve [...] AM EDT Appointment Hematology [place] [address] 05/12/2024 10:00 AM EDT Office Visit Hematology [place] [address] Markel Borjas MD [facility] DR HEMATOLOGY AND ONCOLOGY [place], [place] [address] 03/01/2025 4:15 PM EDT Office Visit Dermatology at [place] [address] [facility] [place] [address] Marek Bonilla MD [address], [address] [place] [address] documented as of this encounter Visit Diagnoses Diagnosis Aortic valve stenosis, etiology of cardiac valve disease unspecified documented in this encounter Care Teams Lawn Service Supervisor Relationship Specialty Start Date End Date Deborah Quiroga, MOLD MAKING SUPERVISOR PCP - General Family Medicine 03/24/16 02/04/23 documented as of this encounter
--- OUTSIDE RECORDS SUMMARY | 2024-04-20 14:25 | XMS_ITS | Encounter Summary ---
Author Organization [facility] Address [facility] [place] [address] Care Team Providers Care Lens Hardener Name Role Phone Deborah Quiroga APRN Primary Care Provider [phone] Encounter Details Date Type Department Care Team (Latest Contact Info) Description 10/14/2016 - 10/14/2016 11:59 PM EDT Hospital Encounter Radiology Library at [facility] [place] [address] Alirio Esparza MD Pain Discharge Disposition: Home [...] AM EDT Appointment H[place] [address] 05/12/2024 10:00 AM EDT Office Visit [place] [address] Markel Borjas MD [facility] [address] HEMAT[place] [address] 03/01/2025 4:15 PM EDT Office Visit Dermatology at [place] [address] [facility] [place] [address] Marek Bonilla MD [address], [place] [address] documented as of this encounter Procedures Procedure Name Priority Date/Time Associated Diagnosis Comments FILM LIBRARY STORAGE ONLY DX CHEST Routine 10/14/2016 12:00 AM EDT Pain documented in this encounter Results * Film Library- Storage Only DX Chest (10/14/2016 12:00 AM EDT) Narrative [facility] - 10/14/2016 5:16 PM EDT This exam is for storage only and is auto-finalizing. Alirio Esparza MD IMG FILM LIBRARY OR DERABLES Performing Organization Address City/State/[facility] Co de Phone Number [place], [place] documented in this encounter Visit Diagnoses Diagnosis Pain Generalized pain documented in this encounter Care Teams Lens Hardener Relationship Specialty Start Date End Date Deborah Quiroga, DIRECTOR OF CURRICULUM AND INSTRUCTION PCP - General Family Medicine 03/24/16 02/04/23 documented as of this encounter
--- OUTSIDE RECORDS SUMMARY | 2024-04-20 14:25 | XMS_ITS | Encounter Summary ---
Author Organization [facility] Address [facility] [place] [address] Care Team Providers Care Drier And Grinder Tender Name Role Phone Deborah Quiroga APRN Primary Care Provider [phone] Encounter Details Date Type Department Care Team (Late st Contact Info) Description 03/01/2020 11:30 AM EDT Office Visit Hematology [place] [phone] Patrick Borjas MD [facility] [address] [place] [address] Neutropenia, unspecified type Social History Tobacco Use [...] 03/01/2020 11:30 AM EDT Hematology Outpatient [facility] [place] Hematology Outpatient Consult Note CC: 60 year [...] TOUCH PREP, CLOT SECTION, CORE ??BIOPSY); [OSR# [id number], COLLECTED 06/23/2016, 19 SLIDES]: ?1. 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 Extremities: No edema. Labs: Hgb= 12.4 Lmrm=417 ANC= 2.5 Imaging As above - reviewed [...] AM EDT Appointment Hematology [place] [address] 05/12/2024 10:00 AM EDT Office Visit Hematology [place] [address] Patrick Borjas MD [facility] [address] [place] [address] 03/01/2025 4:15 PM EDT Office Visit Dermatology at [place] [address] [facility] [place] [address] Marek Bonilla MD [address], QUOC A DERMATOLOGY [place], [place] [address] documented as of this encounter Visit Diagnoses Diagnosis Neutropenia, unspecified type documented in this encounter Care Teams Drier And Grinder Tender Relationship Specialty Start Date End Date Deborah Quiroga APRN PCP - General Family Medicine 03/24/16 02/04/23 documented as of this encounter
--- OUTSIDE RECORDS SUMMARY | 2024-04-20 14:25 | XMS_ITS | Encounter Summary ---
Author Organization [facility] Erika ló[place] [address] Care Team Providers Care Rotary Engine Assembler Name Role Phone Deborah Quiroga ANURAG Primary Care Provider [phone] Encounter Details Date Type Department Care Team (Late st Contact Info) Description 11/11/2020 Refill Dermatology at [address] [address] Taylor Malone, CLIPPER [employer] Social History Tobacco Use Types Packs/Day Years [...] AM EDT Appointment Hematology [place] [address] 05/12/2024 10:00 AM EDT Office Visit Hematology [place] [address] Markel Borjas MD [facility] [place] [address] 03/01/2025 4:15 PM EDT Office Visit Dermatology at [address] [address] Marek Bonilla MD [address], [place] [address] documented as of this encounter Visit Diagnoses Not on filedocumented in this encounter Care Teams Rotary Engine Assembler Relationship Specialty Start Date End Date Deborah Quiroga APRN PCP - General Family Medicine 03/24/16 02/04/23 documented as of this encounter
--- OUTSIDE RECORDS SUMMARY | 2024-04-20 14:25 | XMS_ITS | Encounter Summary ---
[place] [address] Care Team Providers Care Dietetic Aide Name Role Phone Deborah Quiroga ANURAG Primary Care Provider [phone] Encounter Details Date Type Department Care Team (Late st Contact Info) Description 02/07/2020 Telephone Hematology [place] [address] Ellen Rios RN Social History [...] will go by 02/27 Orders faxed to [phone]). Spoke with pt. She will call [facility] directly to schedule a time that works for her. documented in this encounter Plan of Treatment Upcoming Encounters Date Type Department Care Team (Late Contact Info) Description 05/12/2024 9:00 AM EDT Appointment Hematology [place] [address] 05/12/2024 10:00 AM EDT Office Visit Hematology [place] [address] Markel Borjas MD [facility] [place] [address] 03/01/2025 4:15 PM EDT Office Visit Dermatology at [place] [address] [place] [address] Marek Bonilla MD [address], TOD[place] [address] documented as of this encounter Visit Diagnoses Not on filedocumented in this encounter Care Teams Dietetic Aide Relationship Specialty Start Date End Date Deborah Quiroga APRN PCP - General Family Medicine 03/24/16 02/04/23 documented as of this encounter
--- OUTSIDE RECORDS SUMMARY | 2024-04-20 14:25 | XMS_ITS | Encounter Summary ---
Author Organization [facility] [place] [address] Care Team Providers Care Behavior Interventionist Name Role Phone Deborah Quiroga APRN Primary Care Provider [phone] Encounter Details Date Type Department Care Team (Late st Contact Info) Description 06/05/2021 Interpretation Only [address] [address] Deborah Quiroga APRN [address] [phone] Social History Tobacco Use Types Packs/Day Years [...] AM EDT Appointment Hematology [place] [address] 05/12/2024 10:00 AM EDT Office Visit Hematology [place] [address] Markel Borjas MD [facility] [address] HEMATOLOGY [place] [address] 03/01/2025 4:15 PM EDT Office Visit Dermatology at [place] [address] [place] [address] Marek Bonilla MD [address], [place] [address] documented as of this encounter Procedures Procedure Name Priority Date/Time Associated Diagnosis Comments DXA CENTRAL SPINE, HIP, AND/OR WHOLE BODY (GENERIC) Routine 06/05/2021 11:58 AM EDT documented in this encounter Results * DXA Central Spine, Hip, and/or Whole Body (Generic) (06/05/2021 11:58 AM EDT) PT CLASS O RAD ADMITDTTM RAD PT RAD INFO [id number]^E VERETT^DEBORAH ^E RAD EXAM DESC XDXAC^DEXA SCAN [...] have questions please contact the health career based intervention coordinator that requested your imaging first. ? Electronically signed by: Rocael Villatoro MD, [facility] ([phone]), at 06/05/2021 12:00 PM Narrative 06/05/2021 12:00 [...] who have questions please contactthe health career based intervention coordinator that requested your imaging first. Electronically signed by: Rocael Villatoro MD, [facility]([phone]), at 06/05/2021 12:00 PM Deborah LLAMAS DEXA ORDERABLES documented in this encounter Visit Diagnoses Not on filedocumented in this encounter Care Teams Behavior Interventionist Relationship Specialty Start Date End Date Deborah Quiroga APRN PCP - General Family Medicine 03/24/16 02/04/23 documented as of this encounter
--- OUTSIDE RECORDS SUMMARY | 2024-04-20 14:25 | XMS_ITS | Encounter Summary ---
Author Organization [facility] Address [facility] [place] [address] Care Team Providers Care Environmental Health Physician Name Role Phone Junaid Deborah Shields APRN Primary Care Provider [phone] Encounter Details Date Type Department Care Team (Latest Contact Info) Description 06/22/2022 10:00 AM EST Office [place] [phone] Raymond Loredo MD [facility] [address] Raynaud's phenomenon without gangrene; Positive FRANCISCO (antinuclear [...] by Dr. [place] here [facility]. In addition to painful dysesthesias in her [...] over radiocarpal or ulnocarpal joints. Hands: Normal monomer recovery supervisor and claw. SJC/TJC 0/0. Knees: Decreased flexion [...] AM EDT Appointment Hematology [place] [address] 05/12/2024 10:00 AM EDT Office Visit Hematology [place] [address] Markel Borjas MD [facility] [address] HEMATOLOGY [place] [address] 03/01/2025 4:15 PM EDT Office Visit Dermatology at [place] [address] [place] [address] Marek Bonilla MD [address] [facility] [place] [address] documented as of this encounter Visit Diagnoses Diagnosis Raynaud's phenomenon without gangrene Positive FRANCISCO (antinuclear antibody) Other and unspecified nonspecific immunological findings Primary osteoarthritis involving multiple joints Cervical disc disorder at C6-C7 level with radiculopathy documented in this encounter Care Teams Environmental Health Physician Relationship Specialty Start Date End Date Deborah Quiroga APRN PCP - General Family Medicine 03/24/16 02/04/23 documented as of this encounter
--- OUTSIDE RECORDS SUMMARY | 2024-04-20 14:25 | XMS_ITS | Encounter Summary ---
[place] [address] Care Team Providers Care Car Rental Clerk Name Role Phone Ashley Quirogazac Shields APRN Primary Care Provider [phone] Reason for Visit * Reason Onset Date Comments Results 12/03/2016 Encounter Details Date Type Department Care Team (Late st Contact Info) Description 12/03/2016 Telephone Hematology [place] [address] Yudith Valentine RN Results Social [...] received call from Maddy at [facility] reporting critical WBC at 1.61, and ANC of 0.5. She will fax the full results to this office for meal miller notified DR Borjas of above results documented in this encounter Plan of Treatment Upcoming Encounters Date Type Department Care Team (Late st Contact Info) Description 05/12/2024 9:00 AM EDT Appointment H[place] [address] 05/12/2024 10:00 AM EDT Office Visit [place] [address] Markel Borjas MD [facility] [address] [place] [address] 03/01/2025 4:15 PM EDT Office Visit Dermatology at [place] [address] [facility] [place] [address] Marek Bonilla MD [address], [address] [place] [address] documented as of this encounter Visit Diagnoses Not on filedocumented in this encounter Care Teams Car Rental Clerk Relationship Specialty Start Date End Date Deborah Quiroga APRN PCP - General Family Medicine 03/24/16 02/04/23 documented as of this encounter
--- OUTSIDE RECORDS SUMMARY | 2024-04-20 14:25 | XMS_ITS | Encounter Summary ---
Author Organization [facility] [place] [address] Care Team Providers Care Castings Drafter Name Role Phone Ashley Quirogazac Shields APRN Primary Care Provider [phone] Encounter Details Date Type Department Care Team [...] AM EDT Appointment Hematology [place] [address] 05/12/2024 10:00 AM EDT Office Visit [place] [address] Markel Borjas MD [facility] DR [place] [address] 03/01/2025 4:15 PM EDT Office Visit Dermatology at [place] [address] [facility] [place] [address] Marek Bonilla MD [address] [facility], [address] Katherine [place] [address] documented as of this encounter Visit Diagnoses Not on filedocumented in this encounter Care Teams Castings Drafter Relationship Specialty Start Date End Date Deborah Quiroga APRN PCP - General Family Medicine 03/24/16 02/04/23 documented as of this encounter
--- OUTSIDE RECORDS SUMMARY | 2024-04-20 14:25 | XMS_ITS | Encounter Summary ---
Author Organization [facility] [place] [address] Care Team Providers Care Stenciler Name Role Phone Deborha Quiroga APRN Primary Care Provider [phone] Reason for Referral * Consultation (Routine) - Closed Specialty Diagnoses / Procedures Referred By Crispin maxwell Referred To Contact Neurology Diagnoses Polyneuropathy Deborah Quiroga APRN [address] [facility] [address] [place] [address] [facility] Neurology [address] [place] [phone] Referral ID Status Reason Start Date Expiration Date V isits Requested Visits Authorized [id number] Closed Consult, Test & Treat 10/29/2022 10/29/2023 1 1 Encounter Details Date Type Department Care Team (Latest Contact Info) Description 10/29/2022 Transcribe Orders eDH Incoming Referrals [phone] Deborah Quiroga APRN [address] [facility] [address] [place] [address] Polyneuropathy (Primary Dx) Social History Tobacco Use [...] AM EDT Appointment Hematology [place] [address] 05/12/2024 10:00 AM EDT Office Visit [place]ematology [place] [address] Markel Borjas MD [facility] DR [place] [address] 03/01/2025 4:15 PM EDT Office Visit Dermatology at [place] [address] [place] [address] Marek Bonilla MD [address], [place] [address] Scheduled Referrals Name Type Priority Associated Diagnoses Orde r Schedule Referral to Neurology Outpatient Referral Routine Polyneuropathy Ordered: 10/29/2022 documented as of this encounter Visit Diagnoses Diagnosis Polyneuropathy- Primary Unspecified hereditary and idiopathic peripheral neuropathy documented in this encounter Care Teams Stenciler Relationship Specialty Start Date End Date Deborah Quiroga APRN PCP - General Family Medicine 03/24/16 02/04/23 documented as of this encounter
--- OUTSIDE RECORDS SUMMARY | 2024-04-20 14:25 | XMS_ITS | Encounter Summary ---
Author Organization [facility] [place] [address] Care Team Providers Care Medical Research Associate Name Role Phone Ashley Quirogan Cornelius ANURAG Primary Care Provider [phone] Encounter Details Date Type Department Care Team (Late st Contact Info) Description 02/06/2020 Orders Only Hematology [place] [address] Markel Borjas MD [facility] [address] [place] [address] Neutropenia, unspecified type Social History Tobacco Use [...] AM EDT Appointment Hematology [place] [address] 05/12/2024 10:00 AM EDT Office Visit Hematology [place] [address] Markel Borjas MD [facility] [address] [place] [address] 03/01/2025 4:15 PM EDT Office Visit Dermatology at [place] [address] [place] [address] Marek Bonilla MD [address], [place] [address] documented as of this encounter Visit Diagnoses Diagnosis Neutropenia, unspecified type documented in this encounter Care Teams Medical Research Associate Relationship Specialty Start Date End Date Deborah Quiroga APRN PCP - General Family Medicine 03/24/16 02/04/23 documented as of this encounter
--- OUTSIDE RECORDS SUMMARY | 2024-04-20 14:25 | XMS_ITS | Encounter Summary ---
Author Organization [facility] [place] [address] Care Team Providers Care Merchandise Team Manager Name Role Phone Deborah Quiroga APRN Primary Care Provider [phone] Encounter Details Date Type Department Care Team (Latest Contact Info) Description 07/03/2022 1:36 PM EST - 07/03/2022 11:59 PM EST Hospital Encounter [place]ematology [place] [address] Discharge Disposition: Home Social History Tobacco Use [...] AM EDT Appointment Hematology [place] [address] 05/12/2024 10:00 AM EDT Office Visit [place]ematology [place] [address] Markel Borjas MD [facility] [address] [place] [address] 03/01/2025 4:15 PM EDT Office Visit Dermatology at [place] [address] [place] [address] Marek Bonilla MD [address], [place] [address] documented as of this encounter Procedures Procedure Name Priority Date/Time Associated Diagnosis Comments FOLATE, SERUM Routine 07/03/2022 1:59 PM EST VITAMIN B12 Routine 07/03/2022 1:59 PM EST documented in this encounter Results * Folate, serum (07/03/2022 1:59 PM EST) Folate >20.0 4.8 - 24.2 ng/mL [facility] Blood Venous Draw / Unknown 07/03/2022 1:59 PM EST 07/03/2022 2:13 PM EST Narrative Resulting Agency Comment Spec In Lab Markel Borjas MD CHEMISTRY ORDERABL ES Performing Organization Address City/[facility]/ZIP Co de Phone Number [facility] [place] [address] * Vitamin B12 (07/03/2022 1:59 PM EST) Vitamin B12 449 232 - 1,245 pg/mL [facility] Blood Venous Draw / Unknown 07/03/2022 1:59 PM EST 07/03/2022 2:13 PM EST Narrative Resulting Agency Comment Spec In Lab Markel Borjas MD CHEMISTRY ORDERABL ES Performing Organization Address City/[facility]/ZIP Co de Phone Number [facility] [place] [address] documented in this encounter Visit Diagnoses Not on filedocumented in this encounter Care Teams Merchandise Team Manager Relationship Specialty Start Date End Date Deborah Quiroga APRN PCP - General Family Medicine 03/24/16 02/04/23 documented as of this encounter
--- OUTSIDE RECORDS SUMMARY | 2024-04-20 14:25 | XMS_ITS | Encounter Summary ---
Author Organization [facility] Address [facility] [place] [address] Care Team Providers Care Parts Counter Clerk Name Role Phone Deborah Quiroga ANURAG Primary Care Provider [phone] Encounter Details Date Type Department Care Team (Late Contact Info) Description 07/21/2017 Orders Only Hematology [place] [address] Alexandrea Greenwood RN Other neutropenia Social History [...] AM EDT Appointment Hematology [place] [address] 05/12/2024 10:00 AM EDT Office Visit Hematology [place] [address] Markel Borjas MD [facility] [place] [address] 03/01/2025 4:15 PM EDT Office Visit Dermatology at [address] [address] Marek Bonilla MD [address], [place] [address] documented as of this encounter Visit Diagnoses Diagnosis Other neutropenia documented in this encounter Care Teams Parts Counter Clerk Relationship Specialty Start Date End Date Deborah Quiroga APRN PCP - General Family Medicine 03/24/16 02/04/23 documented as of this encounter
--- OUTSIDE RECORDS SUMMARY | 2024-04-20 14:25 | XMS_ITS | Encounter Summary ---
Author Organization [facility] Address [facility] [place] [place] [address] Care Team Providers Care Director Surface Transportation Name Role Phone Deborah Quiroga APRN Primary Care Provider [phone] Reason for Visit * Consultation (Routine) - Closed Specialty Diagnoses / Procedures Referred By Contkrystle t Referred To Contact Rheumatology Diagnoses Positive FRANCISCO (antinuclear antibody) Arthralgia, unspecified joint Sandy Wu APRN [address] [place] [address] [facility] [address] [place] [address] Referral ID Status Reason Start Date Expiration Date V isits Requested Visits Authorized [id number] Closed Consult, Test & Treat PCP Updated and/or Approved 01/01/2022 01/01/2023 6 6 Encounter Details Date Type Department Care Team (Latest Contact Info) Description 01/20/2022 10:00 AM EDT Office [place] [address] Raymond Loredo MD [facility] [place] [address] Rosacea; Raynaud's phenomenon without gangrene; [...] over radiocarpal or ulnocarpal joints. Hands: Normal mosaic floor layer and claw. SJC/TJC 0/0. Hips: Full motion, [...] locally or here at [facility] that the current time is not particularly interested it seems Raymond Loredo MD documented in this encounter Plan of Treatment Upcoming Encounters Date Type Department Care Team (Late st Contact Info) Description 05/12/2024 9:00 AM EDT Appointment Hematology [place] [address] 05/12/2024 10:00 AM EDT Office Visit Hematology [place] [address] Markel Borjas MD [facility] [address] [place] [address] 03/01/2025 4:15 PM EDT Office Visit Dermatology at [address] [place] [address] Marek Bonilla MD [address], [place] [address] Scheduled Referrals Name Type Priority Associated Diagnoses [...] syndrome documented in this encounter Care Teams Director Surface Transportation Relationship Specialty Start Date End Date Junaid, Deborah E, OTA PCP - General Family Medicine 03/24/16 02/04/23 documented as of this encounter
--- OUTSIDE RECORDS SUMMARY | 2024-04-20 14:25 | XMS_ITS | Encounter Summary ---
[place] [address] Care Team Providers Care Radio Division Lieutenant Name Role Phone Junaid, Deborah Shields APRN Primary Care Provider [phone] Encounter Details Date Type Department Care Team (Late st Contact Info) Description 10/20/2016 11:20 AM EDT Office Visit [place] [address] Alirio Esparza MD S/P AVR Social History [...] all of her postoperative tests done at [facility]. Her echo shows a well-seated valve. Her EF, for some reason, was read as in the 45% to 50% range. She had a normal EF to start. I think that will need to be repeated at [facility]. She has no perivalve leak. [...] should continue to see Dr. Burrell, her survey worker at [facility]. cc: Dr. Burrell documented in this encounter Plan of Treatment Upcoming Encounters Date Type Department Care Team (Late st Contact Info) Description 05/12/2024 9:00 AM EDT Appointment Hematology [place] [address] 05/12/2024 10:00 AM EDT Office Visit Hematology [place] [address] Markel Borjas MD [facility] HEMATOLOGY [place] [address] 03/01/2025 4:15 PM EDT Office Visit Dermatology at [place] [address] [place] [address] Marek Bonilla MD [address], [place] [address] documented as of this encounter Visit Diagnoses Diagnosis S/P AVR Heart valve replaced by other means documented in this encounter Care Teams Radio Division Lieutenant Relationship Specialty Start Date End Date Deborah Quiroga APRN PCP - General Family Medicine 03/24/16 02/04/23 documented as of this encounter
--- OUTSIDE RECORDS SUMMARY | 2024-04-20 14:25 | XMS_ITS | Encounter Summary ---
[place] [address] Care Team Providers Care Mis Director Name Role Phone JunaidDeborah APRN Primary Care Provider [phone] Reason for Visit * Reason Comments Follow-up Encounter Details Date Type Department Care Team (Late st Contact Info) Description 01/10/2021 4:30 PM EDT Office Visit Dermatology at [place] [address] [place] [address] Marek Bonilla MD [address] [facility], [address] DERMATOLOGY [place], [place] [id number] Rosacea Social History Tobacco Use Types Packs/Day [...] cutaneous and ocular 2. Previously told by exercise physiologist certified that she had corneal tears from her [...] 3 refills. Will call this in her [facility] in [place] 3. Continue metronidazole 0.75% gel applying once [...] AM EDT Appointment H[place]ology [place] [address] 05/12/2024 10:00 AM EDT Office Visit [place]ology [place] [address] Markel Borjas MD [facility] [address] HEMATOLOGY [place] [address] 03/01/2025 4:15 PM EDT Office Visit Dermatology at [place] [address] [facility] [place] [address] Marek Bonilla MD [address], [place] [address] documented as of this encounter Visit Diagnoses Diagnosis Rosacea documented in this encounter Care Teams Mis Director Relationship Specialty Start Date End Date Deborah Quiroga, ANURAG PCP - General Family Medicine 03/24/16 02/04/23 documented as of this encounter
--- OUTSIDE RECORDS SUMMARY | 2024-04-20 14:25 | XMS_ITS | Encounter Summary ---
[place] [address] Care Team Providers Care Receiving Tank Operator Name Role Phone Ashley Quirogan Cornelius ANURAG Primary Care Provider [phone] Reason for Visit * Reason Onset Date Comments Medical Care Coordination 07/27/2017 Encounter Details Date Type Department Care Team (Late st Contact Info) Description 07/27/2017 Telephone Hematology [place] [address] Alexandrea Greenwood RN Medical Care Coordination Social [...] 07/27/2017 12:25 PM EST Message received from alumnae secretary: Injection/Infusion Referral Call placed to [facility] @ [phone] Spoke w/ CLINICAL OPERATIONS CONSULTANT Services to be provided for pt are: CBC/CMP DONE Q6 MONTHS X2 STARTING NOVEMBER 2017 TECH confirmed they would provide services to pt - I CALLED PT, LM. Pt orders faxed to [phone] documented in this encounter Plan of Treatment Upcoming Encounters Date Type Department Care Team (Late st Contact Info) Description 05/12/2024 9:00 AM EDT Appointment H[place]ology [place] [address] 05/12/2024 10:00 AM EDT Office Visit Hematology [place] [address] Markel Borjas MD [facility] [address] [place] [address] 03/01/2025 4:15 PM EDT Office Visit Dermatology at [place] [address] [place] [address] Marek Bonilla MD [address], [place] [address] documented as of this encounter Visit Diagnoses Not on filedocumented in this encounter Care Teams Receiving Tank Operator Relationship Specialty Start Date End Date Deborah Quiroga APRN PCP - General Family Medicine 03/24/16 02/04/23 documented as of this encounter
--- OUTSIDE RECORDS SUMMARY | 2024-04-20 14:25 | XMS_ITS | Encounter Summary ---
Author Organization [facility] Address [facility] [place] [address] Care Team Providers Care Recruiting Manager Name Role Phone Deborah Quiroga APRN Primary Care Provider [phone] Encounter Details Date Type Department Care Team (Late st Contact Info) Description 12/04/2016 External Results Hematology [place] [address] Teresa Dodson RN Social History Tobacco Use [...] AM EDT Appointment [place] [address] 05/12/2024 10:00 AM EDT Office Visit [place] [address] Markel Borjas MD [facility] DR HEMATOLOGY [place] [address] 03/01/2025 4:15 PM EDT Office Visit Dermatology at [address] [address] Marek Bonilla MD [address], [place] [address] documented as of this encounter Procedures Procedure Name Priority Date/Time Associated Diagnosis Comments CBC (WITH DIFF) Routine 12/03/2016 11:35 AM EDT COMPREHENSIVE METABOLIC PANEL Routine 12/03/2016 11:35 AM EDT documented in this encounter Results * (ABNORMAL) Comprehensive metabolic panel (non-fasting) (12/03/2016 11:35 AM EDT) Glucose 85(Able Bodied Tankerman al Lab) Blood Urea Nitrogen 11(A[facility]ied [facility]) Creatinine 0.93(Exte rnal Lab) Sodium 140(Exter nal Lab) Potassium 4.2(Exter nal Lab) Chloride 104(Exter nal Lab) Calcium 10.0(Exte rnal Lab) Protein, Total 8.1(Exter nal Lab) Albumin 3.5(Exter nal Lab) Bilirubin, Total 0.25(Exte rnal Lab) Alkaline Phosphatase 96([facility]ied [facility]) Aspartate Aminotransferase 18([facility]) Alanine Aminotransferase 21(Able Bodied [facility]) Blood specimen (specimen) 12/03/2016 11:35 AM EDT Historical Provider CHEMISTRY ORDERAB LES * (ABNORMAL) CBC (with Diff) (12/03/2016 11:35 AM EDT) White Blood Cell 1.61(EXTER NAL/ABN) 4.4 - 10.8 Hemoglobin 13.0(Exter nal Lab) Hematocrit 39.8(Exter nal Lab) Platelet 248(Able Bodied [facility]erman al Lab) Neutrophil Absolute (ANC) - Automated 0.5(LANGUAGE PATHOLOGIST AL/ABN) Blood specimen (specimen) 12/03/2016 11:35 AM EDT Historical Provider HEMATOLOGY ORDERA BLES documented in this encounter Visit Diagnoses Not on filedocumented in this encounter Care Teams Recruiting Manager Relationship Specialty Start Date End Date Deborah Quiroga, ANURAG PCP - General Family Medicine 03/24/16 02/04/23 documented as of this encounter
--- OUTSIDE RECORDS SUMMARY | 2024-04-20 14:25 | XMS_ITS | Encounter Summary ---
[place] [address] Care Team Providers Care Transformer Assembler Name Role Phone Ashley Quirogan Cornelius ANURAG Primary Care Provider [phone] Reason for Visit * Reason Comments Acrochordon Rosacea Encounter Details Date Type Department Care Team (Late st Contact Info) Description 12/05/2020 3:00 PM EDT Office Visit Dermatology at [address] [address] Marek Bonilla MD [address] [facility], [place] [address] Inflamed acrochordon Social History Tobacco Use Types [...] AM EDT Appointment Hematology [place] [address] 05/12/2024 10:00 AM EDT Office Visit [place]ematology [place] [address] Markel Borjas MD [facility] [address] [place] [address] 03/01/2025 4:15 PM EDT Office Visit Dermatology at [place] [address] [place] [address] Marek Bonilla MD [address] [facility], [place] [address] documented as of this encounter Visit Diagnoses Diagnosis Inflamed acrochordon Unspecified hypertrophic and atrophic condition of skin documented in this encounter Care Teams Transformer Assembler Relationship Specialty Start Date End Date Deborah Quiroga APRN PCP - General Family Medicine 03/24/16 02/04/23 documented as of this encounter
--- OUTSIDE RECORDS SUMMARY | 2024-04-20 14:25 | XMS_ITS | Encounter Summary ---
Author Organization [facility] Address [facility] [place] [address] Care Team Providers Care Manager Ems Name Role Phone Ashley Quirogazac Shields APRN Primary Care Provider [phone] Reason for Referral * Consultation (Routine) - Closed Specialty Diagnoses / Procedures Referred By Contac t Referred To Contact Neurology Diagnoses Neck pain Popeye Rogers MD [facility] [address] Kyra Haas MD [facility] [address] [address] Referral ID Status Reason Start Date Expiration Date V isits Requested Visits Authorized [id number] Closed Consult, Test & Treat 06/29/2022 06/29/2023 1 1 Reason for Visit * Reason Comments Neck Pain Weak in both arms, p ain and tingling in arms and hands Encounter Details Date Type Department Care Team (Late st Contact Info) Description 06/29/2022 10:20 AM EST Office Visit [facility] [place] [address] Popeye Rogers MD [facility] [place] [address] Neck pain Social History Tobacco Use Types [...] have EMG and nerve conduction studies in [place] that showed carpal tunnel syndrome. I do not have a copy of that report. documented in this encounter Plan of Treatment Upcoming Encounters Date Type Department Care Team (Late st Contact Info) Description 05/12/2024 9:00 AM EDT Appointment Hematology [place] [address] 05/12/2024 10:00 AM EDT Office Visit Hematology [place] [address] Markel Borjas MD [facility] [address] [place] [address] 03/01/2025 4:15 PM EDT Office Visit Dermatology at [address] [place] [address] Marek Bonilla MD [address] [place] [address], [place] [address] Scheduled Referrals Name Type Priority Associated Diagnoses Orde r Schedule Referral to Neurology Outpatient Referral Routine Neck pain Ordered: 06/29/2022 documented as of this encounter Visit Diagnoses Diagnosis Neck pain Cervicalgia documented in this encounter Care Teams Manager Ems Relationship Specialty Start Date End Date Deborah Quiroga APRN PCP - General Family Medicine 03/24/16 02/04/23 documented as of this encounter
--- OUTSIDE RECORDS SUMMARY | 2024-04-20 14:25 | XMS_ITS | Encounter Summary ---
Author Organization [facility] [place] [address] Care Team Providers Care Quarrying Specialist Name Role Phone Deborah Quiroga APRN Primary Care Provider [phone] Encounter Details Date Type Department Care Team (Late st Contact Info) Description 06/05/2021 Interpretation Only [address] [address] Deborah Quiroga APRN [address] [phone] Social History Tobacco Use Types Packs/Day Years [...] AM EDT Appointment Hematology [place] [address] 05/12/2024 10:00 AM EDT Office Visit [place]ematology [place] [address] Markel Borjas MD [facility] [address] [place] [address] 03/01/2025 4:15 PM EDT Office Visit Dermatology at [place] [address] [place] [address] Marek Bonilla MD [address], [place] [address] documented as of this encounter Procedures Procedure Name Priority Date/Time Associated Diagnosis Comments MAMMO SCREENING CAD AND CATRACHITO BILATERAL Routine 06/05/2021 11:42 AM EDT documented in this encounter Results * Mammo Screening Cad and Catrachito Bilateral (06/05/2021 11:42 AM EDT) PT CLASS O DH RAD ADMITDTTM DH RAD PT DH RAD INFO [id number]^EVERET T^DEBORAH^E DH RAD EXAM DESC MADDSCTO^BREAST SCREEN [...] have questions please contact the health manager wound care that requested your imaging first. ? Electronically signed by: Rocael Villatoro MD, [facility] ([phone]), at 06/05/2021 1:27 PM Narrative 06/05/2021 1:27 [...] who have questions please contactthe health manager wound care that requested your imaging first. Electronically signed by: Rocael Villatoro MD, [facility]([phone]), at 06/05/2021 1:27 PM Deborah Quiroga APRN IMG MAMMO ORDERABLE S documented in this encounter Visit Diagnoses Not on filedocumented in this encounter Care Teams Quarrying Specialist Relationship Specialty Start Date End Date Deborah Quiroga APRN PCP - General Family Medicine 03/24/16 02/04/23 documented as of this encounter
--- OUTSIDE RECORDS SUMMARY | 2024-04-20 14:25 | XMS_ITS | Encounter Summary ---
Author Organization [facility] [place] [address] Care Team Providers Care Preschool Teacher'S Assistant Name Role Phone Deborah Quiroga APRN Primary Care Provider [phone] Encounter Details Date Type Department Care Team (Late st Contact Info) Description 06/08/2022 Ancillary Procedure Radiology Library at [facility] [place] [address] Deborah Quiroga APRN [address] [place] [address] Social History Tobacco Use Types Packs/Day [...] AM EDT Appointment [place] [address] 05/12/2024 10:00 AM EDT Office Visit [place] [address] Markel Borjas MD [facility] HEMATOLOGY [place] [address] 03/01/2025 4:15 PM EDT Office Visit Dermatology at [place] [address] [place] [address] Marek Bonilla MD [address], [place] [address] documented as of this encounter Procedures Procedure Name Priority Date/Time Associated Diagnosis Comments FILM LIBRARY STORAGE ONLY DX SPINE Routine 06/08/2022 12:00 AM EST documented in this encounter Results * Film Library- Storage Only DX Spine (06/08/2022 12:00 AM EST) Narrative [facility] - 06/18/2022 10:57 AM EST This exam is auto-finalizing. It's purpose is for storage only. Deborah Quiroga APRN IMG FILM LIBRARY OR DERABLES Performing Organization Address City/State/[facility] de Phone Number [place], [place] documented in this encounter Visit Diagnoses Not on filedocumented in this encounter Care Teams Preschool Teacher'S Assistant Relationship Specialty Start Date End Date Deborah Quiroga APRN PCP - General Family Medicine 03/24/16 02/04/23 documented as of this encounter
--- OUTSIDE RECORDS SUMMARY | 2024-04-20 14:25 | XMS_ITS | Encounter Summary ---
Author Organization [facility] [place] [address] Care Team Providers Care Sling Operator Name Role Phone Ashley Quirogazac Shields APRN Primary Care Provider [phone] Encounter Details Date Type Department Care Team [...] AM EDT Appointment Hematology [place] [address] 05/12/2024 10:00 AM EDT Office Visit Hematology [place] [address] Markel Borjas MD [facility] [address] [place] [address] 03/01/2025 4:15 PM EDT Office Visit Dermatology at [place] [address] [facility] [place] [address] Marek Bonilla MD [address] [facility], [address] [place] [address] documented as of this encounter Visit Diagnoses Not on filedocumented in this encounter Care Teams Sling Operator Relationship Specialty Start Date End Date Deborah Quiroga APRN PCP - General Family Medicine 03/24/16 02/04/23 documented as of this encounter
--- OUTSIDE RECORDS SUMMARY | 2024-04-20 14:25 | XMS_ITS | Encounter Summary ---
Author Organization [facility] [place] [address] Care Team Providers Care Assistant Basketball Coach Name Role Phone Deborah Quiroga APRN Primary Care Provider [phone] Encounter Details Date Type Department Care Team (Late st Contact Info) Description 06/05/2021 Interpretation Only [address] [address] Deborah Quiroga APRN [address] [phone] Social History Tobacco Use Types Packs/Day Years [...] AM EDT Appointment Hematology [place] [address] 05/12/2024 10:00 AM EDT Office Visit Hematology [place] [address] Markel Borjas MD [facility] DR HEMATOLOG[place] [address] 03/01/2025 4:15 PM EDT Office Visit Dermatology at [place] [address] [place] [address] Marek Bonilla MD [address], [place] [address] documented as of this encounter Procedures Procedure Name Priority Date/Time Associated Diagnosis Comments MAMMO SCREENING CAD BILATERAL Routine 06/05/2021 11:42 AM EDT documented in this encounter Results * Mammo Screening Cad Bilateral (06/05/2021 11:42 AM EDT) PT CLASS O DH RAD ADMITDTTM DH RAD PT DH RAD INFO [id number]^EV ERETT^DEBORAH^E DH RAD EXAM DESC MADDSC^SCREEN MAMMO [...] have questions please contact the health residential child care counselor that requested your imaging first. ? Electronically signed by: Rocael Villatoro MD, [facility] ([phone]), at 06/05/2021 1:27 PM Narrative 06/05/2021 1:27 [...] who have questions please contactthe health residential child care counselor that requested your imaging first. Deborah Quiroga APRN IMG MAMMO ORDERABLE S documented in this encounter Visit Diagnoses Not on filedocumented in this encounter Care Teams Assistant Basketball Coach Relationship Specialty Start Date End Date Deborah Quiroga APRN PCP - General Family Medicine 03/24/16 02/04/23 documented as of this encounter
--- OUTSIDE RECORDS SUMMARY | 2024-04-20 14:25 | XMS_ITS | Encounter Summary ---
Author Organization [facility] [place] [address] Care Team Providers Care Irrigation Supervisor Name Role Phone Ashley Quirogazac Shields APRN Primary Care Provider [phone] Encounter Details Date Type Department Care Team [...] AM EDT Appointment Hematology [place] [address] 05/12/2024 10:00 AM EDT Office Visit Hematology [place] [address] Markel Borjas MD [facility] [address] [place] [address] 03/01/2025 4:15 PM EDT Office Visit Dermatology at [place] [address] [place] [address] Marek Bonilla MD [address] [facility] [place] [address] documented as of this encounter Visit Diagnoses Not on filedocumented in this encounter Care Teams Irrigation Supervisor Relationship Specialty Start Date End Date Deborah Quiroga APRN PCP - General Family Medicine 03/24/16 02/04/23 documented as of this encounter
--- OUTSIDE RECORDS SUMMARY | 2024-04-20 14:26 | XMS_ITS | Encounter Summary ---
[place] [address] Care Team Providers Care Iron Miner Blasting Name Role Phone Ashley Quirogan Cornelius ANURAG Primary Care Provider [phone] Reason for Visit * Reason Onset Date Comments Medication Management 09/14/2016 Encounter Details Date Type Department Care Team (Late st Contact Info) Description 09/14/2016 Telephone Hematology [place] [address] Alexandrea Greenwood, air motor repairer Management Social History Tobacco Use Types Packs/Day [...] 09/14/2016 9:12 AM EST Message received from attendance secretary: Purnima called, asking for clarification on [...] AM EDT Appointment Hematology [place] [address] 05/12/2024 10:00 AM EDT Office Visit Hematology [place] [address] Markel Borjas MD [facility] [address] [place] [address] 03/01/2025 4:15 PM EDT Office Visit Dermatology at [place] [address] [facility] [place] [address] Marek Bonilla MD [address] [place] [address] documented as of this encounter Visit Diagnoses Not on filedocumented in this encounter Care Teams Iron Miner Blasting Relationship Specialty Start Date End Date Deborah Quiroga APRN PCP - General Family Medicine 03/24/16 02/04/23 documented as of this encounter
--- OUTSIDE RECORDS SUMMARY | 2024-04-20 14:26 | XMS_ITS | Encounter Summary ---
[place] [address] Care Team Providers Care Photographer Model Name Role Phone Ashley Quirogazac Shields APRN Primary Care Provider [phone] Reason for Visit * Auth/Cert Specialty Diagnoses / Procedures Referred By Crispin t Referred To Contact Diagnoses Aortic stenosis Procedures PRO REPLACE AORT VALV, PROSTH VALV @REPLACE AORTIC VALVE, OPEN, W\CPB, W\PROSTHETIC VALVE (WRVU 41.32) Referral ID Status Reason Start Date Expiration Date Visits Re quested Visits Authorized [id number] 1 1 Encounter Details Date Type Department Care Team (Late st Contact Info) Description 09/21/2016 7:30 AM EST - 09/21/2016 12:04 PM EST [place] [address] Alirio Esparza MD @REPLACE AORTIC VALVE, OPEN, [...] Patient Age: 61 y.o. Birthdate: 1955 Language: Maltese Race: White Ethnicity: Not nor Admit Date: 09/21/2016 Discharge Date: 09/25/2016 Attending Physician: Alirio Esparza MD Follow-up Recommendations for Providers: Please continue routine management of cardiovascular risk factors including blood pressure, lipids,glucose, etc. Please note any changes to medications. Patient to follow-up with PCP, Deborah Quiroga APRN, in 1-2 weeks. Patient to follow-up with Superintendent Gas Distribution, Dr. Antelmo Burrell, in two weeks. Patient to follow-up with Cardiac Surgery, Dr. Alirio Esparza, to be scheduled for before 10/19/2016, with CXR, EKG, and Echo. Inpatient Provider Contact Information: [facility] Section of Cardiac Surgery [facility] [address] FAX [phone] Discharge Diagnoses (Hospital Problems) Primary Diagnoses: Secondary [...] 41.32) performed by Alirio Esparza MD at [facility] MAIN OR ??? Pro aortoplas for supravalv sten N/A 09/21/2016 @AORTOPLASTY FOR SUPRAVALVULAR STENOSIS (WRVU 29.33) performed by Alirio Esparza MD at [facility] MAIN OR Prior To Admission [...] Hospital Course: Purnima Thacker was admitted to [facility] on 09/21/2016 via the Same [...] Alirio Esparza and/or the Cardiac Surgery Physician Children'S Program Coordinator Team may be reached at . Antibiotic prophylaxis: You will need to take antibiotics prior to many invasive tests and treatments, such as dental cleaning, which should be done every 6 months. Your primary care physician or your dentist can prescribe this medication. Please refer to the card with the [place] Heart Association Guidelines for more information. You have been provided with 3 copies of this card. Keep one for your self. Give one to your primary care physician and one to your dentist. Please refer to the [place] Heart [employer] Guidelines for more information. Good [...] Dr. Alirio Jones. You may use a [place] Track or treadmill but avoid any pulling [...] should resume a low fat, low cholesterol, [place] Heart Association Diet. Driving: No driving until [...] the outpatient Phase 2 Cardiac Rehabilitation at [facility]. The patient agrees to a referral to this program. The referral will be sent at discharge and the patient should be contacted by the program within 1- 2 weeks from discharge. Future Appointments and Orders Future Appointments Provider Department Dept Phone 11/20/2016 11:30 AM Markle Borjas MD [facility] [phone] Future Orders Complete By Expires Echocardiogram Transthoracic([facility]) [[id number] Custom] 10/18/2016 (Approximate) 09/18/2017 Process Instructions: If the Echocardiogram is to be PERFORMED in a DH location other than [place]--STOP and order [id number], Echocardiogram South/External. Scheduling Instructions: Questions: Is a Bubble Study requested?: No Does the patient have Congenital Heart Disease?: No Does patient require sedation?: None GA rationale: Should this service be billed to the research sponsor?: EKG 12 Lead [EKG1 Custom] 10/18/2016 (Approximate) 09/25/2017 Process Instructions: Scheduling Instructions: Questions: Which DH location will this be performed?: [place] Is a rhythm strip needed?: No If EKG Reason is Pre-op Evaluation, indicate diagnosis for surgery.: Should this service be billed to the research sponsor?: XR Chest PA & Lateral (Generic) [[id number] Custom] 10/18/2016 (Approximate) 09/25/2017 Process Instructions: Scheduling Instructions: Questions: Where will study be performed?: [facility]- Radiology Portable exam?: No Reason for exam and clinical history: s/p AVReplacement, patch annuloplasty 1 month f/u Other pertinent information: Stat read required?: Date of injury if applicable: Requested Time: Referral to Cardiac Rehab [[id number] Custom] As directed Process Instructions: If no progress note charted, please enter Clinical details in comments. Scheduling Instructions: Questions: My question or request is: s/p AVR. Cardiac rehab at [facility] Referral to Home Health - at DISCHARGE [[id number] CPT(R)] As directed Process Instructions: Scheduling Instructions: Comments: DOCUMENTATION FOR VNA SERVICES (INCLUDING THOSE PATIENTS WITH MEDICARE COVERAGE REQUIRING HOME VNA SERVICES AND/OR HOSPICE SERVICES) PATIENT'S LOCATION: Purnimakary Gallego[address] [address] (home) No relevant phone numbers on file. Harp Regulator's Name: self In discussion with the attending physician, it is certified that this patient is under their care and that they, or a Nurse Practitioner, or Physician Children'S Program Coordinator who is working directly with them, hada [...] for services as follows: HOME HEALTH AGENCY: [facility] PHONE: [phone] FAX: [phone] RN orders: Cardiopulmonary assessment, incisional assessment, assess [...] issues please call the Cardiac SurgeryOffice at [phone] FOR MEDICARE ONLY: In discussion with the [...] 09/30/16 Signed: Crispin Aranda PA-C 09/25/2016 [facility] Section of Cardiac Surgery [facility] [address] FAX [phone] Date: 09/25/2016 CC: ANURAG Alford Caryn E, APRN [address] [place] [address] documented in this encounter Discharge Instructions * [...] Alirio Esparza and/or the Cardiac Surgery Physician Children'S Program Coordinator Team may be reached at . Antibiotic prophylaxis: You will need to take antibiotics prior to many invasive tests and treatments, such as dental cleaning, which should be done every 6 months. Your primary care physician or your dentist can prescribe this medication. Please refer to the card with the [place] Heart [employer] Guidelines for more information. You have been provided with 3 copies of this card. Keep one for your self. Give one to your primary care physician and one to your dentist. Please refer to the [place] Heart [employer] Guidelines for more information. Good [...] Dr. Alirio Jones. You may use a [place] Track or treadmill but avoid any pulling [...] should resume a low fat, low cholesterol, [place] Heart [employer] Diet. Driving: No driving until [...] the outpatient Phase 2 Cardiac Rehabilitation at [facility]. The patient agrees to a referral to [...] PM EST Cardiac Surgery Progress Note: ID: [id number] S/p AVR, patch aortoplasty POD#2. PMH of [...] Gas) No results found for: PHART, PO2ART, [id number] Assessment/Plan: TPW out this am. (+) BM. [...] Signed: Crispin Aranda PA-C 09/24/2016 Team pager: [phone]; [phone] after 5pm [facility] Section of Cardiac Surgery * Leonor Henson S, SODA ROOM OPERATOR - 09/23/2016 10:48 AM EST Cardiac Surgery Progress Note: ID: [id number] s/p AVR, patch aortoplasty POD#2. PMH of [...] Gas) No results found for: PHART, PO2ART, XPP9OLR Assessment/Plan: s/p AVR, patch aortoplasty POD#2. PMH of Neutropenia, HLD, HTN, Depression, obesity, . Transferred from [facility] yesterday and doing well. Pathway. Will [...] Surgeon on rounds. Signed: Leonor Henson APRN [facility] Section of Cardiac Surgery Date: 09/23/2016 * Nico Palacios PA - 09/22/2016 9:56 AM EST Cardiac Surgery Progress Note: ID: [id number] s/p AVR, patch aortoplasty POD#1. PMH of [...] NT, ND, soft. Ext: Moves all extremities. [place], well perfused. Incisions: C/D/I Tubes/Lines/Drains: PIV, leanna, [...] Attending Surgeon on rounds. Signed: EKATERINA KIM [facility] Section of Cardiac Surgery Date: [...] Outcome (s) achieved Date Met: 09/25/16 09/25/16 6070 Coping/Psychosocial Plan Of Care Reviewed With patient [...] health, home with outpatient services Lalitha Cohen [facility] Pager: [phone] Inpatient Physical Therapy Patient status, treatment interventions, and goals discussed with student. I am in agreement with all details and associated flowsheet rows as documented and was present for all aspects of the patient treatment session. Nery Jaramillo, CANDY Pager [phone] Problem: Acute Rehab Services Goal & Intervention Plan Goal: Bed Mobility Goal Stand Alone Therapy Goal Outcome: Ongoing (Interventions Implemented as Appropriate) 09/22/16 1611 09/25/16 0947 Bed Mobility Goal Bed Mobility Goal, Time to Achieve 4 days -- Bed Mobility Goal, Activity Type scoot/bridge;supine to sit/sit to supine -- Bed Mobility Goal, [place] Level independent -- Bed Mobility Goal, Additional [...] Achieve 4 days -- Gait Training Goal, [place] Level independent -- Gait Training Goal, Distance [...] assist, home with home health [facility]itha Cohen [facility] Pager: [phone] Inpatient Physical Therapy Patient status, treatment interventions, and goals discussed with student. I am in agreement with all details and associated flowsheet rows as documented and was present for all aspects of the patient treatment session. Nery Jaramillo, SHIPBOARD INTELLIGENCE ANALYST Pager Problem: Acute Rehab Services Goal & Intervention Plan Goal: Bed Mobility Goal Stand Alone Therapy Goal Outcome: Ongoing (Interventions Implemented as Appropriate) 09/22/16161009/23/161411 Bed Mobility Goal Bed Mobility Goal, Time to Achieve 4 days -- Bed Mobility Goal, Activity Type scoot/bridge;supine to sit/sit to supine -- Bed Mobility Goal, [place] Level independent -- Bed Mobility Goal, Additional [...] Achieve 4 days -- Gait Training Goal, [place] Level independent -- Gait Training Goal, Distance [...] days -- Transfer Training Goal, Activity Type qkp-je-oxodd/qjvul-ng-sef;hlu-bq-tvmpp/rmiob-cu-lma -- Transfer Train Goal, [place] Level independent -- Transfer Training Goal, Additional Goal abides sternal precautions -- Transfer Training Goal, Outcome -- goal met * Consult Note - Jana Crenshaw RN - 09/23/2016 9:41 AM EST [facility] CARDIAC REHABILITATION Purnima Thacker was seen today regarding participation in the outpatient Phase 2 Cardiac Rehabilitation at [facility]. The patient agrees to a referral to [...] Another Service: (cardiac rehab) NICOLE HERNANDEZ, PT Pager:[phone] Inpatient Physical Therapy Problem: Acute Rehab Services Goal & Intervention Plan Goal: Bed Mobility Goal Stand Alone Therapy Goal Outcome: Ongoing (Interventions Implemented as Appropriate) 09/22/161610 Bed Mobility Goal Bed Mobility Goal, Time to Achieve 4 days Bed Mobility Goal, Activity Type scoot/bridge;supine to sit/sit to supine Bed Mobility Goal, [place] Level independent Bed Mobility Goal, Additional Goal able to abide sternal precautions during transfers Goal: Gait Training Goal Stand Alone Therapy Goal Outcome: Ongoing (Interventions Implemented as Appropriate) 09/22/161610 Gait Training Goal Gait Training Goal, Date Established 09/22/16 Gait Training Goal, Time to Achieve 4 days Gait Training Goal, [place] Level independent Gait Training Goal, Distance to Achieve ascend and descends 2 steps independently Goal: Goal Transfer Training Stand Alone Therapy Goal Outcome: Ongoing (Interventions Implemented as Appropriate) 09/22/161610 Goal Transfer Training Transfer Training Goal, Time to Achieve 4 days Transfer Training Goal, Activity Type clt-pd-ptjgy/hlxwh-nu-qui;xew-bz-sercv/flbzu-rm-itk Transfer Train Goal, [place] Level independent Transfer Training Goal, Additional Goal [...] of completing AD's at home, chooses her [id number], Martha Thacker (home) for her DPOAH, 2nd choice in friend, Nitesh Rad, [place], [place] Current Coping/Education/Information Needs: patient sitting up [...] close by, Rashad & Raymond, and her dvrzbb-kf-iff Martha Thacker who she has chosen to be her DPOAH. Also has a friend Nitesh Leroy who lives in [place], [place], also her DPOAH choice. Behavioral Health History: none on file in e[facility] Substance Use/Abuse: none on file in e[facility] Other Pertinent/Service Specific Information: none Health/Prescription Coverage: Primary Insurance: [employer] Secondary Insurance: none Prescription Coverage: yes, per patient no issues Preferred Pharmacy: ?? Other: none Primary Care Provider: Deborah Quiroga, SODA ROOM OPERATOR [phone] Patient/Caregiver Goals of Treatment: per medical team recommendations at discharge for CT surgery Potential Needs for Transition of Care: Rehab/SNF: TBD Home Health: TBD DME: no Dialysis: no Community Resources: non3 Transportation: ride home with a friend Other: none Anticipated Barriers to Discharge/Special Considerations: none anticipated at this time Plan: patient will need VNA services at discharge. The patient/credit and collections representative has been provided a list of Home Health Agencies/DME vendors which servetheir preferred geographic area. A letter describing our affiliations was reviewed with them and they were educated about their right to choose where referrals are placed. Patient requests referral to: [facility]. PHONE: [phone] FAX: [phone] Expected date of discharge: Fri/Sat? CM called VNA to confirm referral, talked with VALDO Bunn/intake who stated she was familiar w/patient & would monitor her progress through curaspan. Referral routed to the Labor Gang Supervisor for matching with agency/vendor and to provide any required information. A member of the Care Management team will continue to monitor progress, follow for continuity of care and assist with transition of care planning. Amanda Moreno RN Pager: [phone] * Op Note - Alirio Esparza MD - 09/21/2016 12:53 PM EST 09/23/2016 Purnima Thacker 1955 [id number] Preoperative Diagnosis: Symptomatic aortic stenosis Postoperative Diagnosis: Symptomatic aortic stenosis Procedure: Aortic valve replacement: Bovine Pericardial 25 mm Surgeon: Alirio Esparza M.D. Children'S Program Coordinator: Philip BALL Anesthesia: General endotracheal anesthesia Drains: [...] applied. The patient was transported to the [facility] on levo. All counts were correct. [...] Operative Note Patient Name: Purnima Thacker : [id number] MR#: [id number] Case Date: 09/21/2016 Surgeon: Surgeon(s) and Role: * Alirio Esparza MD - Primary * Nico Palacios PA - Physician Children'S Program Coordinator Preoperative diagnosis: Postoperative diagnosis: Procedure(s) (LRB): @REPLACE [...] AM EDT Appointment Hematology [place] [address] 05/12/2024 10:00 AM EDT Office Visit Hematology [place] [address] Markel Borjas MD [facility] [address] [place] [address] 03/01/2025 4:15 PM EDT Office Visit Dermatology at [place] [address] [place] [address] Marek Bonilla MD [address], [place] [address] Scheduled Orders Name Type Priority Associated Diagnoses [...] IMPLANTABLE DEVICES SCAN 09/26/2016 12:00 AM EST [employer]ERGARTEN CLASSROOM TEACHER SCAN 09/26/2016 12:00 AM EST POTASSIUM [...] SCAN EXT O RDR/RSLT * SCAN DOC: KINDERGARTEN CLASSROOM TEACHER (09/26/2016 12:00 AM EST) Anatomical Region Laterality Modality Other Narrative 09/26/2016 12:00 AM EST Ordered by an unspecified provider. Scanning Provider MEDIA MGR SCAN EXT O RDR/RSLT * Potassium (09/25/2016 4:32 AM EST) Potassium 4.4 3.5 - 5.0 mmol/L [place] [...] CHEMISTRY ORDERABLE S [facility] [place] [address] * (ABNORMAL) Differential, Automated (09/24/2016 9:56 AM EST) Pathologist [facility] Neutrophil % 76.8 % [facility] Neutrophil Absolute 7.79(H) 1.70 - 6.10 x10(3)/mc L [facility] Lymph % 11.1 % [facility] Lymphocytes Abs 1.1 0.9 - 3.2 x10(3)/mc L [facility] Monocyte % 8.5 % [facility] Monocyte Abs 0.9 0.3 - 0.9 x10(3)/mc L [facility] Eos % 0.5 % [facility] Eosinophils Abs 0.0 0.0 - 0.4 x10(3)/mc L [facility] Basophil % 0.2 % [facility] Baso [...] HEMATOLOGY ORDERABL ES [facility] [place] [address] * (ABNORMAL) Hemogram (09/24/2016 9:56 AM EST) [...] [facility] NRBC% auto 1.1 % [facility] NRBC Absolute 0.110(H) 0.000 - 0.000 x10(3)/mc L [facility] Blood specimen (specimen) 09/24/2016 9:56 AM EST 09/24/2016 10:04 AM EST Narrative Resulting Agency Comment Spec In Lab Alirio Esparza MD HEMATOLOGY ORDERABL ES [facility] [place] [address] * (ABNORMAL) Basic Metabolic Panel (non-fasting) (09/24/2016 [...] intervals supplied above were not validated at [facility]. Results from pediatric [...] LABORATORY Est Glomerular Filtration Rate >60 >=60 [facility] [...] the following links into your internet browser. [email or web address] Blood specimen (specimen) 09/24/2016 9:56 AM EST 09/24/2016 10:04 AM EST Narrative Resulting Agency Comment Spec In Lab Alirio Esparza MD CHEMISTRY ORDERABLE S [facility] [place] [address] * XR Chest PA & Lateral (Generic) [...] CHEMISTRY ORDERABLE S [facility] [place] [address] * POCT Glucose (09/22/2016 8:17 AM EST) Glucose, POC 131 65 - 199 mg/dL [facility] Comment: Supplemental ranges: <140 mg/dL before meals <180 mg/dL all other times of the day Blood specimen (specimen) 09/22/2016 8:17 AM EST 09/22/2016 8:17 AM EST Alirio Esparza MD POINT OF CARE TEST ORDERABLES [facility] [place] [address] * POCT Glucose (09/22/2016 4:01 AM EST) Glucose, POC 135 65 - 199 mg/dL [facility] Comment: Supplemental ranges: <140 mg/dL before meals <180 mg/dL all other times of the day Blood specimen (specimen) 09/22/2016 4:01 AM EST 09/22/2016 4:01 AM EST Aliroi Esparza MD POINT OF CARE TEST ORDERABLES [facility] [place] [address] * Scan, Peripheral Blood (09/22/2016 4:00 AM EST) Plat estimate Normal [facility] RBC Morphology Abnormal [facility] Macrocyte 1-5 /HPF [facility] Plat, Giant Less than 1 /HPF [facility] Blood specimen (specimen) 09/22/2016 4:00 AM EST 09/22/2016 4:34 AM EST Narrative Resulting Agency Comment Spec In Lab Alirio Esparza MD HEMATOLOGY ORDERABL ES Performing Organization Address [facility]/ZIP Co de Phone Number [facility] [place] [address] * Electrolytes panel (09/22/2016 4:00 AM EST) Pathologist [facility] Sodium 145 135 - 145 mmol/L [place] [...] CHEMISTRY ORDERABLE S Performing Organization Address City/[facility]/ZIP Co de Phone Number [facility] [place] [address] * (ABNORMAL) Differential, Automated (09/22/2016 4:00 AM EST) Neutrophil % 70.9 % [facility] Neutrophil Absolute 5.33 1.70 - 6.10 x10(3)/mc L [facility] Lymph % 9.1 % [facility] Lymphocytes Abs 0.7(L) 0.9 - 3.2 x10(3)/[facility] LABORAT[facility] Monocyte % 18.0 % [facility] Monocyte Abs 1.4(H) 0.3 - 0.9 x10(3)/[facility]ORAT[facility] Eos % 0.0 % [facility] Eosinophils Abs 0.0 0.0 - 0.4 x10(3)/[facility] LABOR[facility] Basophil % 0.1 % [facility] Baso Absolute 0.0 0.0 - 0.1 x10(3)/[facility] [...] Immature Gran Absolute 0.14(H) 0.00 - 0.04 x10(3)/[facility] LABORAT[facility] Blood specimen (specimen) 09/22/2016 4:00 AM EST 09/22/2016 4:34 AM EST Narrative Resulting Agency Comment Spec In Lab Alirio Esparza MD HEMATOLOGY ORDERABL ES [facility] [place] [address] * (ABNORMAL) Hemogram (09/22/2016 4:00 AM EST) White Blood Cell 7.5 4.0 - 9.5 x10(3)/[facility] LABORATORY Red Blood Cell 2.93(L) 4.00 - 5.21 x10(6)/[facility] Hemoglobin 9.2(L) 11.7 - [...] [facility] NRBC% auto 0.3 % [facility] NRBC Absolute 0.020(H) 0.000 - 0.000 x10(3)/mc L [facility] Blood specimen (specimen) 09/22/2016 4:00 AM EST 09/22/2016 4:34 AM EST Narrative Resulting Agency Comment Spec In Lab Alirio Esparza MD HEMATOLOGY ORDERABL ES Performing Organization Address City/State/[facility] Co de Phone Number [facility] [place] [address] * (ABNORMAL) Cardiac Enzymes (09/22/2016 4:00 AM [...] consensus document of the Joint Society of Cardiology/[place] College of Cardiology Committee for the redefinition of myocardial infarction. ??Journal of the [place] College of Cardiology 2000; 36: 959-969] Creatine Kinase 338(H) 0 - 160 unit/L [facility] Blood specimen (specimen) 09/22/2016 4:00 AM EST 09/22/2016 4:34 AM EST Narrative Resulting Agency Comment Spec In Lab Alirio Esparza MD CHEMISTRY ORDERABLE S Performing Organization Address [facility] de Phone Number [facility] [place] [address] * (ABNORMAL) Glucose, fasting (09/22/2016 4:00 AM [...] of Diabetes Mellitus, Position Statement from the [place] Diabetes Association. ??Diabetes Care, Volume 33, Supplement 1, Aug 2009 Blood specimen (specimen) 09/22/2016 4:00 AM EST 09/22/2016 4:34 AM EST Narrative Resulting Agency Comment Spec In Lab Alirio Esparza MD CHEMISTRY ORDERABLE S Performing Organization Address [facility] Co de Phone Number [facility] [place] [address] * (ABNORMAL) Creatinine (09/22/2016 4:00 AM EST) [facility] Creatinine 0.69(L) 0.70 - 1.20 mg/dL [facility] Comment: Please note that the pediatric reference intervals supplied above were not validated at [facility]. Results from pediatric patients should be interpreted in conjunction to the patient's age, height and muscle mass. Est Glomerular Filtration Rate >60 >=60 [facility] [...] the following links into your internet browser. [email or web address] Blood specimen (specimen) 09/22/2016 4:00 AM EST 09/22/2016 4:34 AM EST Narrative Resulting Agency Comment Spec In Lab Alirio Esparza MD CHEMISTRY ORDERABLE S Performing Organization Address City/[facility] Co de Phone Number [facility] [place] [address] * BUN (09/22/2016 4:00 AM EST) [facility] Blood Urea Nitrogen 10 8 - 18 mg/dL [facility] Blood specimen (specimen) 09/22/2016 4:00 AM EST 09/22/2016 4:34 AM EST Narrative Resulting Agency Comment Spec In Lab Alirio Esparza MD CHEMISTRY ORDERABLE S Performing Organization Address [facility]/ZIP Co de Phone Number [facility] [place] [address] * POCT Glucose (09/21/2016 9:59 PM EST) Glucose, POC 146 65 - 199 mg/dL [facility] Comment: Supplemental ranges: <140 mg/dL before meals <180 mg/dL all other times of the day Blood specimen (specimen) 09/21/2016 9:59 PM EST 09/21/2016 9:59 PM EST Alirio Esparza MD POINT OF CARE TEST ORDERABLES Performing Organization Address City/[facility]/ZIP Co de Phone Number [facility] [place] [address] * POCT Glucose (09/21/2016 7:26 PM EST) Glucose, POC 152 65 - 199 mg/dL [facility] Comment: Supplemental ranges: <140 mg/dL before meals <180 mg/dL all other times of the day Blood specimen (specimen) 09/21/2016 7:26 PM EST 09/21/2016 7:26 PM EST Alirio Esparza MD POINT OF CARE TEST ORDERABLES Performing Organization Address [facility] Co de Phone Number [facility] [place] [address] * POCT Glucose (09/21/2016 6:00 PM EST) Glucose, POC 146 65 - 199 mg/dL [facility] Comment: Supplemental ranges: <140 mg/dL before meals <180 mg/dL all other times of the day Blood specimen (specimen) 09/21/2016 6:00 PM EST 09/21/2016 6:00 PM EST Alirio Esparza MD POINT OF CARE TEST ORDERABLES Performing Organization Address City/[facility] Co de Phone Number [facility] [place] [address] * (ABNORMAL) BLOOD GAS 2 ARTERIAL (09/21/2016 4:42 PM EST) [facility] pH, Arterial 7.35(L) 7.35 - 7.45 [facility] PCO2, Arterial 48(H) 35 - 45 mmHg [facility] PO2, Arterial 108(H) 85 - 104 mmHg [facility] Bicarbonate, Arterial 26.0 20.0 - 26.0 mmol/L [facility] Base Excess, Arterial 0.5 -3.0 - 3.0 [...] [facility] PF Ratio Art 270 [facility] Blood specimen (specimen) 09/21/2016 4:42 PM EST 09/21/2016 4:42 PM EST Alirio Esparza MD POINT OF CARE TEST ORDERABLES Performing Organization Address [facility] Co de Phone Number [facility] [place] [address] * POCT Glucose (09/21/2016 4:07 PM EST) Pathologist [facility] Glucose, POC 150 65 - 199 mg/dL [facility] Comment: Supplemental ranges: <140 mg/dL before meals <180 mg/dL all other times of the day Blood specimen (specimen) 09/21/2016 4:07 PM EST 09/21/2016 4:07 PM EST Alirio Esparza MD POINT OF CARE TEST ORDERABLES Performing Organization Address [facility] de Phone Number [facility] [place] [address] * (ABNORMAL) Hemoglobin (09/21/2016 4:05 PM EST) [facility] Hemoglobin 9.9(L) 11.7 - 15.5 gm/dL [facility] Blood specimen (specimen) 09/21/2016 4:05 PM EST 09/21/2016 4:20 PM EST Narrative Resulting Agency Comment Spec In Lab Alirio Esparza MD HEMATOLOGY ORDERABL ES Performing Organization Address [facility] Phone Number [facility] [place] [address] * Potassium (09/21/2016 4:05 PM EST) [facility] Potassium 4.6 3.5 - 5.0 mmol/L [facility] [...] S Performing Organization Address [facility] Co de Phone Number [facility] [place] [address] * POCT Glucose (09/21/2016 2:52 PM EST) Glucose, POC 117 65 - 199 mg/dL [facility] Comment: Supplemental ranges: <140 mg/dL before meals <180 mg/dL all other times of the day Blood specimen (specimen) 09/21/2016 2:52 PM EST 09/21/2016 2:52 PM EST Alirio Esparza MD POINT OF CARE TEST ORDERABLES Performing Organization Address [facility] Co de Phone Number [facility] [place] [address] * POCT Glucose (09/21/2016 1:51 PM EST) Glucose, POC 108 65 - 199 mg/dL [facility] Comment: Supplemental ranges: <140 mg/dL before meals <180 mg/dL all other times of the day Blood specimen (specimen) 09/21/2016 1:51 PM EST 09/21/2016 1:51 PM EST Alirio Esparza MD POINT OF CARE TEST ORDERABLES Performing Organization Address [facility] Co de Phone Number [facility] [place] [address] * POCT Glucose (09/21/2016 12:54 PM EST) Glucose, POC 128 65 - 199 mg/dL [facility] Comment: Supplemental ranges: <140 mg/dL before meals <180 mg/dL all other times of the day Blood specimen (specimen) 09/21/2016 12:54 PM EST 09/21/2016 12:54 PM EST Alirio Esparza MD POINT OF CARE TEST ORDERABLES [facility] [place] [address] * EKG 12 Lead (09/21/2016 12:26 PM EST) Ventricular rate 87 BPM MUSE SYSTEM Atrial Rate 87 BPM MUSE SYSTEM P-R Interval 256 ms MUSE SYSTEM QRS Duration 90 ms MUSE SYSTEM Q-T Interval 406 ms MUSE SYSTEM QTC Calculated (Bezet) 488 ms MUSE SYSTEM Calculated P [place] 24 degrees MUSE SYSTEM Calculated R [place] 21 degrees MUSE SYSTEM Calculated T [place] -5 degrees MUSE SYSTEM INTERPRETATION Sinus rhythm [...] course of the esophagus and below the [id number]. There is a right IJ PA catheter [...] the course of theesophagus and below the jomjo-nb-musu. There is a right IJ PA catheter [...] [facility] PF Ratio Art 356 [facility] Blood specimen (specimen) 09/21/2016 12:20 PM EST 09/21/2016 12:20 PM EST Alirio Esparza MD POINT OF CARE TEST ORDERABLES Performing Organization Address [facility] Phone Number [facility] [place] [address] * (ABNORMAL) BLOOD GAS 2 ARTERIAL (09/21/2016 [...] [facility] FIO2 Art 95 % [facility] Flow Art 0.7 LPM [facility] PF Ratio Art 313 [facility] Temp Art 36.7 Celsius [facility] Blood specimen (specimen) 09/21/2016 10:54 AM EST 09/21/2016 10:54 AM EST Alirio Esparza MD POINT OF CARE TEST ORDERABLES Performing Organization Address City/State/[facility] Co de Phone Number [facility] [place] [address] * Thrombin time (09/21/2016 10:50 AM EST) [...] S Performing Organization Address [facility] de Phone Number [facility] [place] [address] * Fibrinogen (09/21/2016 10:50 AM EST) Fibrinogen [...] HEMATOLOGY ORDERABLE S Performing Organization Address [facility] de Phone Number [facility] [place] [address] * APTT (09/21/2016 10:50 AM EST) [facility] Partial Thromboplastin Time 32 25 - 35 sec [facility] Comment: The recommended therapeutic range for full dose, unfractionated heparin at [facility] is 80 ? [...] S Performing Organization Address [facility] de Phone Number [facility] [place] [address] * (ABNORMAL) Prothrombin Time (09/21/2016 10:50 AM EST) Pathologist [facility] Prothrombin Time 18.7(H) 12.0 - 15.0 sec [...] HEMATOLOGY ORDERABLE S [facility] [place] [address] * (ABNORMAL) Hemogram (09/21/2016 10:50 AM EST) [...] [facility] NRBC% auto 0.1 % [facility] NRBC Absolute 0.020(H) 0.000 - 0.000 x10(3)/mc L [facility] Blood specimen (specimen) 09/21/2016 10:50 AM EST 09/21/2016 10:56 AM EST Narrative Resulting Agency Comment Spec In Lab Luis Enrique Quarles MD HEMATOLOGY ORDERABLE S Performing Organization Address [facility] de Phone Number [facility] [place] [address] * Prepare Platelets, Apheresis (09/21/2016 10:30 AM EST) Dispensed? Yes [facility] Blood specimen (specimen) 09/21/2016 10:30 AM EST 09/21/2016 10:28 AM EST Alirio Esparza MD BLOOD BANK PRODUCT ORDERABLES Performing Organization Address [facility] Phone Number [facility] [place] [address] * (ABNORMAL) BLOOD GAS 2 ARTERIAL (09/21/2016 10:05 AM EST) pH, Arterial 7.33(L) 7.35 - 7.45 [facility] PCO2, Arterial 54(Critic al) 35 - 45 mmHg [facility] Comment:Noted by instrument assembler. PO2, Arterial 218(H) 85 - 104 mmHg [...] [facility] Comment: Noted by instrument assembler. Please note: Patients with WBC >100,000 may [...] [facility] Temp Art 37.0 Celsius [facility] Blood specimen (specimen) 09/21/2016 10:05 AM EST 09/21/2016 10:05 AM EST Alirio Esparza MD POINT OF CARE TEST ORDERABLES [facility] [place] [address] * (ABNORMAL) BLOOD GAS 2 ARTERIAL (09/21/2016 9:44 AM EST) pH, Arterial 7.22(Criti gabrielle) 7.35 - 7.45 [facility] Comment:Noted by instrument assembler. PCO2, Arterial 70(Critica l) 35 - 45 mmHg [facility] Comment:Noted by instrument assembler. PO2, Arterial 224(H) 85 - 104 mmHg [...] CARE TEST ORDERABLES [facility] [place] [address] * (ABNORMAL) Hemoglobin (09/21/2016 9:42 AM EST) Hemoglobin 7.2(L) 11.7 - 15.5 gm/dL [facility] Blood specimen (specimen) 09/21/2016 9:42 AM EST 09/21/2016 9:51 AM EST Narrative Resulting Agency Comment Spec In Lab Alirio Esparza MD HEMATOLOGY ORDERABL ES Performing Organization Address [facility]/ZIP Co de Phone Number [facility] [place] [address] * Platelet count (09/21/2016 9:42 AM EST) Platelet 159 145 - 357 x10(3)/mc L [facility] Immature Plt % 1.6 0.0 - 7.4 % [facility] Comment: Limitation of the Immature Platelet Fraction (IPF)-May be less reliable when the platelet count is less than 34a140/uL due to statistical imprecision. The IPF value [...] in a decreased state of production. References: [employer] The Clinical Value of the Immature Platelet Fraction (IPF) in Cell Recovery Document Number 10-1143 12/2010 [employer] The Role of the Immature Platelet Fraction (IPF) in the Differential Diagnosis of Thrombocytopenia, Document MKT-10-1209 V05/07/15 P0514 Blood specimen (specimen) 09/21/2016 9:42 AM EST 09/21/2016 9:51 AM EST Narrative Resulting Agency Comment Spec In Lab Alirio Esparza MD HEMATOLOGY ORDERABL ES Performing Organization Address [facility] Co de Phone Number [facility] [place] [address] * (ABNORMAL) Hematocrit (09/21/2016 9:42 AM EST) [...] ES Performing Organization Address [facility] de Phone Number [facility] [place] [address] * Fibrinogen (09/21/2016 9:42 AM EST) Fibrinogen [...] ES Performing Organization Address [facility] Co de Phone Number [facility] [place] [address] * (ABNORMAL) BLOOD GAS 2 ARTERIAL (09/21/2016 [...] [facility] Temp Art 37.0 Celsius [facility] Blood specimen (specimen) 09/21/2016 9:10 AM EST 09/21/2016 9:10 AM EST Alirio Esparza MD POINT OF CARE TEST ORDERABLES [facility] [place] [address] * Surgical Pathology Report (09/21/2016 9:09 AM EST) Final Diagnosis [id number] ?Location: 3T The signing pathologist has (i) [...] AM EST Alirio Esparza MD PATHOLOGY/[place] [address] * Specimen to Pathology (surgical or derm) (09/21/2016 9:09 AM EST) AP Specimen 09/21/2016 9:09 AM EST 09/21/2016 9:09 AM EST Narrative [facility] - 09/21/2016 9:09 AM EST Specimen requisition ordered. ??Separate Pathology report to follow Alirio Esparza MD PATHOLOGY/CYTOLOGY ORDERABLES [facility] [place] [address] * (ABNORMAL) BLOOD GAS 2 ARTERIAL (09/21/2016 [...] CARE TEST ORDERABLES [facility] [place] [address] * (ABNORMAL) BLOOD GAS 2 ARTERIAL (09/21/2016 [...] [facility] FIO2 Art 95 % [facility] Flow Art 1.1 LPM [facility] PF Ratio Art 298 [facility] Temp Art 35.6 Celsius [facility] Blood specimen (specimen) 09/21/2016 8:18 AM EST 09/21/2016 8:18 AM EST Alirio Esparza MD POINT OF CARE TEST ORDERABLES [facility] [place] [address] * Prepare RBC (09/21/2016 7:05 AM EST) Dispensed? Yes [facility] Blood specimen (specimen) 09/21/2016 7:05 AM EST 09/21/2016 7:02 AM EST Alirio Esparza MD BLOOD BANK PRODUCT ORDERABLES Performing Organization Address City/[facility]/ZIP Co de Phone Number [facility] [place] [address] * POCT Glucose (09/21/2016 6:42 AM EST) Glucose, POC 104 65 - 199 mg/dL [facility] Comment: Supplemental ranges: <140 mg/dL before meals <180 mg/dL all other times of the day Blood specimen (specimen) 09/21/2016 6:42 AM EST 09/21/2016 6:42 AM EST Alirio Esparza MD POINT [place] [address] documented in this encounter Visit Diagnoses Not [...] dose on Wed09/21/16 at 1230, Until Discontinued, [place] teeth, Routine Given 09/25/2016 9:40 AM EST [...] dose on Wed09/21/16 at 1230, Until Discontinued, [place] teeth, Routine 0900 (Not Given - Provider: [...] Routine documented in this encounter Care Teams Photographer Model Relationship Specialty Start Date End Date Deborah Quiroga APRN PCP - General Family Medicine 03/24/16 02/04/23 documented as of this encounter
--- OUTSIDE RECORDS SUMMARY | 2024-04-20 14:26 | XMS_ITS | Encounter Summary ---
[place] [address] Care Team Providers Care Tax Specialist Name Role Phone Junaid, Deborah Shields APRN Primary Care Provider [phone] Reason for Visit * Auth/Cert Specialty Diagnoses / Procedures Referred By Crispin t Referred To Contact Diagnoses Aortic stenosis Procedures PRO REPLACE AORT VALV, PROSTH VALV @REPLACE AORTIC VALVE, OPEN, W\CPB, W\PROSTHETIC VALVE (WRVU 41.32) Referral ID Status Reason Start Date Expiration Date Visits Re quested Visits Authorized [id number] 1 1 Encounter Details Date Type Department Care Team (Late st Contact Info) Description 09/21/2016 7:25 AM EST Anesthesia [place] [address] Luis Enrique Quarles MD [facility] [address] [place] [address] Henrik Cooper MD [facility] [address] [place] [address] Anesthesia Record Procedure Summary Procedure Name Responsible [...] 0819 Sternotomy 0844 CV Bypass init 1009 Armhole Presser 1014 An Clamp Remove 1031 CP Bypass [...] Tube 09/21/16 (#28 angled chest tube to [place]: left: pericardial); Left; 09/22/16; 1119 09/21/16 0000 by Toshia Alejandre RN 09/22/16 1119 by Vero Bonilla RN Chest Tube 09/21/16 (#28 straig ht chest tube to [place]; right: mediastinal'); Right; mediastinum; 09/22/16; 1118 09/21/16 0000 by Toshia Alejandre RN 09/22/16 1118 by Vero Bonilla RN (RETIRED) Peripheral IV Line - Single Lumen 09/21/16; 0648; metacarpal vein (top of hand), left; hfho-css-uztodc catheter system; 20 gauge; valdo Arteaga; 09/23/16; [...] Cooper MD - 09/21/2016 6:50 PM EST [facility] Department of Anesthesiology Post-procedure Note Patient: Purnima Thacker Procedure Summary Date Anesthesia Start Anesthesia Stop Room / Location 09/21/16 07 1152 [facility] OR 16 / [facility] MAIN OR Procedure Diagnosis Surgeon Responsible Provider @REPLACE AORTIC VALVE, OPEN, W\CPB, W\PROSTHETIC VALVE (WRVU 41.32) (N/A Chest); @AORTOPLASTY FOR SUPRAVALVULAR STENOSIS (WRVU 29.33) (N/A Chest) () Alirio Francisco MD Clark, Jeffrey A, MD All Anesthesia Providers: Anesthesiologist: Luis Enrique Quarles MD Collections Manager: Henrik Cooper MD Last (1hr) Vitals: BP Temp 36.1 ??C (97 ??F) (09/21/16 1800) Pulse 79 (09/21/16 1800) Resp 11 (09/21/16 1800) SpO2 98 % (09/21/16 1800) Patient Location: [facility] Level of Consciousness: Sedated (Pharmacologic/Intentional) Pain [...] AM EDT Appointment [place] [address] 05/12/2024 10:00 AM EDT Office Visit Hemat[place] [address] Markel Borjas MD [facility] [address] HEMATOLOGY [place] [address] 03/01/2025 4:15 PM EDT Office Visit Dermatology at [place] [address] [place] [phone] Marek Bonilla MD [address], [address] [place] [address] documented as of this encounter Visit Diagnoses [...] mg documented in this encounter Care Teams Tax Specialist Relationship Specialty Start Date End Date Deborah Quiroga APRN PCP - General Family Medicine 03/24/16 02/04/23 documented as of this encounter
--- OUTSIDE RECORDS SUMMARY | 2024-04-20 14:26 | XMS_ITS | Encounter Summary ---
Author Organization [facility] Address [facility] [place] [address] Care Team Providers Care Discount Clerk Name Role Phone Deborah Quiroga ANURAG Primary Care Provider [phone] Encounter Details Date Type Department Care Team (Late st Contact Info) Description 08/18/2016 Orders [place] [phone] Alirio Esparza MD Aortic valve stenosis, unspecified [...] AM EDT Appointment Hematology [place] [phone] 05/12/2024 10:00 AM EDT Office Visit [place]ology [place] [phone] Markel Borjas MD [facility] [address] HEMATOLOGY [place] [address] 03/01/2025 4:15 PM EDT Office Visit Dermatology at [address] [address] Marek Bonilla MD [address], [place] [address] documented as of this encounter Results * [...] the following links into your internet browser. [email or web address] Blood specimen (specimen) 08/18/2016 4:50 PM EST 08/18/2016 5:03 PM EST Narrative Resulting Agency Comment Spec In Lab Alirio Esparza MD CHEMISTRY ORDERABLE S [facility] [place] [address] documented in this encounter Visit Diagnoses Diagnosis Aortic valve stenosis, unspecified etiology documented in this encounter Care Teams Discount Clerk Relationship Specialty Start Date End Date Deborah Quiroga, ANURAG PCP - General Family Medicine 03/24/16 02/04/23 documented as of this encounter
--- OUTSIDE RECORDS SUMMARY | 2024-04-20 14:26 | XMS_ITS | Encounter Summary ---
[place] [address] Care Team Providers Care Anvil Worker Name Role Phone Ashley Quirogan Cornelius ANURAG Primary Care Provider [phone] Reason for Visit * Reason Onset Date Comments Medical Care Coordination 09/14/2016 Encounter Details Date Type Department Care Team (Late st Contact Info) Description 09/14/2016 Telephone Hematology [place] [phone] Alexandrea Greenwood RN Medical Care Coordination Social [...] 09/14/2016 9:10 AM EST Message received from tree fruit and nut crops farmer: Injection/Infusion Referral Call placed to [facility] Infusion Room Spoke charis Bragg. Services to be provided for pt are: [facility] 09/16/16 [facility] confirmed they would provide services to pt and would contact with appointment time. Pt aware to expect the phone call ??orders faxed to [phone]). documented in this encounter Plan of Treatment Upcoming Encounters Date Type Department Care Team (Late st Contact Info) Description 05/12/2024 9:00 AM EDT Appointment Hematology [place] [address] 05/12/2024 10:00 AM EDT Office Visit Hematology [place] [address] Markel Borjas MD [facility] [address] HEMATOLOGY [place] [address] 03/01/2025 4:15 PM EDT Office Visit Dermatology at [place] [address] [place] [phone] Marek Bonilla MD [address], [place] [address] documented as of this encounter Visit Diagnoses Not on filedocumented in this encounter Care Teams Anvil Worker Relationship Specialty Start Date End Date Deborah Quiroga APRN PCP - General Family Medicine 03/24/16 02/04/23 documented as of this encounter
--- OUTSIDE RECORDS SUMMARY | 2024-04-20 14:26 | XMS_ITS | Encounter Summary ---
Author Organization [facility] Address [facility] [place] [address] Care Team Providers Care Adjunct Art History Instructor Name Role Phone Deborah Quiroga ANURAG Primary Care Provider [phone] Encounter Details Date Type Department Care Team (Late st Contact Info) Description 09/17/2016 External Results Hematology [place] [phone] Alexandrea Greenwood RN Neutropenia, unspecified type Social [...] AM EDT Appointment Hematology [place] [phone] 05/12/2024 10:00 AM EDT Office Visit Hematology [place] [phone] Markel Borjas MD [facility] [place] [address] 03/01/2025 4:15 PM EDT Office Visit Dermatology at [address] [address] Marek Bonilla MD [address], [place] [address] documented as of this encounter Procedures Procedure [...] type documented in this encounter Care Teams Adjunct Art History Instructor Relationship Specialty Start Date End Date Deborah Quiroga APRN PCP - General Family Medicine 03/24/16 02/04/23 documented as of this encounter
--- OUTSIDE RECORDS SUMMARY | 2024-04-20 14:26 | XMS_ITS | Encounter Summary ---
Author Organization [facility] [place] [address] Care Team Providers Care Architecture Professor Name Role Phone Ashley Quirogan Cornelius ANURAG Primary Care Provider [phone] Reason for Referral * Consultation (Routine) - Specialty Diagnoses / Procedures Referred By Contact Referred To Contact Cardiac Rehabilitation Diagnoses S/P AVR Alirio Esparza MD [facility] DR CARDIOTHORACIC [place] [address] Cardiac Rehab, [address] [place] [address] Referral ID Status Reason Start Date Expiration Date V isits Requested Visits Authorized [id number] Consult, Test & Treat 09/25/2016 03/24/2017 36 36 Reason for Visit * Auth/Cert Specialty Diagnoses / Procedures Referred By Contkrystle t Referred To Contact Diagnoses Aortic stenosis Procedures PRO REPLACE AORT VALV, PROSTH VALV @REPLACE AORTIC VALVE, OPEN, W\CPB, W\PROSTHETIC VALVE (WRVU 41.32) Referral ID Status Reason Start Date Expiration Date Visits Re quested Visits Authorized [id number] 1 1 Encounter Details Date Type Department Care Team (Latest Contact Info) Description 09/21/2016 6:08 AM EST - 09/25/2016 4:33 PM EST Hospital Encounter Intermediate [place] [id number] Alirio Esparza MD Aortic valve stenosis, unspecified [...] Patient Age: 61 y.o. Birthdate: 1955 Language: Sao Tomean Race: White Ethnicity: Not nor Admit Date: 09/21/2016 Discharge Date: 09/25/2016 Attending Physician: Alirio Esparza MD Follow-up Recommendations for Providers: Please continue routine management of cardiovascular risk factors including blood pressure, lipids,glucose, etc. Please note any changes to medications. Patient to follow-up with PCP, Deborah Quiroga APRN, in 1-2 weeks. Patient to follow-up with Food Supervisor, Dr. Antelmo Burrell, in two weeks. Patient to follow-up with Cardiac Surgery, Dr. Alirio Esparza, to be scheduled for before 10/19/2016, with CXR, EKG, and Echo. Inpatient Provider Contact Information: [facility] Section of Cardiac Surgery [facility] [place] [address] FAX [phone] Discharge Diagnoses (Hospital Problems) Primary Diagnoses: Secondary [...] 41.32) performed by Alirio Esparza MD at [facility] MAIN OR ??? Pro aortoplas for supravalv sten N/A 09/21/2016 @AORTOPLASTY FOR SUPRAVALVULAR STENOSIS (WRVU 29.33) performed by Alirio Esparza MD at [facility] MAIN OR Prior To Admission Medications [...] Hospital Course: Purnima Thacker was admitted to [facility] on 09/21/2016 via the Same Day [...] Alirio Esparza and/or the Cardiac Surgery Physician [employer] Team may be reached at . Antibiotic prophylaxis: You will need to take antibiotics prior to many invasive tests and treatments, such as dental cleaning, which should be done every 6 months. Your primary care physician or your dentist can prescribe this medication. Please refer to the card with the [place] [employer] Guidelines for more information. You have been provided with 3 copies of this card. Keep one for your self. Give one to your primary care physician and one to your dentist. Please refer to the [place] [employer] Guidelines for more information. Good [...] Dr. Alirio Jones. You may use a [place] Track or treadmill but avoid any pulling [...] resume a low fat, low cholesterol, [place] [employer] Diet. Driving: No driving until [...] the outpatient Phase 2 Cardiac Rehabilitation at [facility]. The patient agrees to a referral to this program. The referral will be sent at discharge and the patient should be contacted by the program within 1- 2 weeks from discharge. Future Appointments and Orders Future Appointments Provider Department Dept Phone 11/20/2016 11:30 AM Markel Borjas MD [facility] [phone] Future Orders Complete By Expires Echocardiogram Transthoracic([place]) [EYZ572 Custom] 10/18/2016 (Approximate) 09/18/2017 Process Instructions: If the Echocardiogram is to be PERFORMED in a location other than [place]--STOP and order [id number], Echocardiogram South/External. Scheduling Instructions: Questions: Is a Bubble Study requested?: No Does the patient have Congenital Heart Disease?: No Does patient require sedation?: None GA rationale: Should this service be billed to the research sponsor?: EKG 12 Lead [EKG1 Custom] 10/18/2016 (Approximate) 09/25/2017 Process Instructions: Scheduling Instructions: Questions: Which location will this be performed?: [place] Is a rhythm strip needed?: No If EKG Reason is Pre-op Evaluation, indicate diagnosis for surgery.: Should this service be billed to the research sponsor?: XR Chest PA & Lateral (Generic) [[id number] Custom] 10/18/2016 (Approximate) 09/25/2017 Process Instructions: Scheduling Instructions: Questions: Where will study be performed?: [facility]- Radiology Portable exam?: No Reason for exam and clinical history: s/p AVReplacement, patch annuloplasty 1 month f/u Other pertinent information: Stat read required?: Date of injury if applicable: Requested Time: Referral to Cardiac Rehab [CWE477 Custom] As directed Process Instructions: If no progress note charted, please enter Clinical details in comments. Scheduling Instructions: Questions: My question or request is: s/p AVR. Cardiac rehab at [facility] Referral to Home Health - at DISCHARGE [KGI0130 CPT(R)] As directed Process Instructions: Scheduling Instructions: Comments: DOCUMENTATION FOR VNA SERVICES (INCLUDING THOSE PATIENTS WITH MEDICARE COVERAGE REQUIRING HOME VNA SERVICES AND/OR HOSPICE SERVICES) PATIENT'S LOCATION: Purnima Magalie Kirstie [address] [place] [phone] (home) No relevant phone numbers on file. Service Or Work Dispatcher's Name: self In discussion with the attending physician, it is certified that this patient is under their care and that they, or a Nurse Practitioner, or Physician [employer] Tech who is working directly with them, hada [...] for services as follows: HOME HEALTH AGENCY: [facility] PHONE: [phone] FAX: [phone] RN orders: Cardiopulmonary assessment, incisional assessment, assess [...] issues please call the Cardiac SurgeryOffice at [phone] FOR MEDICARE ONLY: In discussion with the [...] AFTER 09/30/16 Signed: Crispin Aranda PA-C 09/25/2016 [facility] Section of Cardiac Surgery [facility] [place] [address] FAX [phone] Date: 09/25/2016 CC: ANURAG Alford Caryn E, APRN [address] [place] [address] documented in this encounter Discharge Instructions * [...] Alirio Esparza and/or the Cardiac Surgery Physician [employer] Team may be reached at . Antibiotic prophylaxis: You will need to take antibiotics prior to many invasive tests and treatments, such as dental cleaning, which should be done every 6 months. Your primary care physician or your dentist can prescribe this medication. Please refer to the card with the [place] [employer] Guidelines for more information. You have been provided with 3 copies of this card. Keep one for your self. Give one to your primary care physician and one to your dentist. Please refer to the [place] [employer] Guidelines for more information. Good [...] Dr. Alirio Jones. You may use a [place] Track or treadmill but avoid any pulling [...] resume a low fat, low cholesterol, [place] [employer] Diet. Driving: No driving until [...] the outpatient Phase 2 Cardiac Rehabilitation at [facility]. The patient agrees to a referral [...] PM EST Cardiac Surgery Progress Note: ID: [id number] S/p AVR, patch aortoplasty POD#2. PMH of [...] Gas) No results found for: PHART, PO2ART, MFD3JHT Assessment/Plan: TPW out this am. (+) BM. [...] Signed: Crispin Aranda PA-C 09/24/2016 Team pager: [phone]; [phone] after 5pm [facility] Section of Cardiac Surgery * Leonor Henson, ASSISTANT MANAGER QUALITY MANAGEMENT - 09/23/2016 10:48 AM EST Cardiac Surgery Progress Note: ID: [id number] s/p AVR, patch aortoplasty POD#2. PMH of [...] Gas) No results found for: PHART, PO2ART, PIW7EAB Assessment/Plan: s/p AVR, patch aortoplasty POD#2. PMH of Neutropenia, HLD, HTN, Depression, obesity, . Transferred from [facility] yesterday and doing well. Pathway. Will dc [...] Surgeon on rounds. Signed: Leonor Henson APRN [facility] Section of Cardiac Surgery Date: 09/23/2016 * Nico Palacios PA - 09/22/2016 9:56 AM EST Cardiac Surgery Progress Note: ID: [id number] s/p AVR, patch aortoplasty POD#1. PMH of [...] NT, [place], soft. Ext: Moves all extremities. [place], well perfused. Incisions: C/D/I Tubes/Lines/Drains: PIV, richi, [...] Attending Surgeon on rounds. Signed: EKATERINA KIM [facility] Section of Cardiac Surgery Date: 09/22/2016 [...] left pleural effusion. T/L/D Al ETT CVL [place] CT Pacing wires ASSESSMENT, MANAGEMENT, and DECISION [...] with outpatient services Lalitha Cohen SPTA Pager: [phone] Inpatient Physical Therapy Patient status, treatment interventions, and goals discussed with student. I am in agreement with all details and associated flowsheet rows as documented and was present for all aspects of the patient treatment session. Nerykatrina Jaramillo, [facility] Pager [phone] Problem: Acute Rehab Services Goal & Intervention Plan Goal: Bed Mobility Goal Stand Alone Therapy Goal Outcome: Ongoing (Interventions Implemented as Appropriate) 09/22/16 16109/25/16 09 Bed Mobility Goal Bed Mobility Goal, Time to Achieve 4 days -- Bed Mobility Goal, Activity Type scoot/bridge;supine to sit/sit to supine -- Bed Mobility Goal, [place] Level independent -- Bed Mobility Goal, Additional [...] Achieve 4 days -- Gait Training Goal, [place] Level independent -- Gait Training Goal, Distance [...] assist, home with home health Lalitha Cohen [facility] Pager: [phone] Inpatient Physical Therapy Patient status, treatment interventions, and goals discussed with student. I am in agreement with all details and associated flowsheet rows as documented and was present for all aspects of the patient treatment session. Nery Jaramillo, [facility] Pager [phone] Problem: Acute Rehab Services Goal & Intervention Plan Goal: Bed Mobility Goal Stand Alone Therapy Goal Outcome: Ongoing (Interventions Implemented as Appropriate) 09/22/16 16109/23/16 1412 Bed Mobility Goal Bed Mobility Goal, Time to Achieve 4 days -- Bed Mobility Goal, Activity Type scoot/bridge;supine to sit/sit to supine -- Bed Mobility Goal, [place] Level independent -- Bed Mobility Goal, Additional [...] Achieve 4 days -- Gait Training Goal, [place] Level independent -- Gait Training Goal, Distance [...] days -- Transfer Training Goal, Activity Type cdf-vq-cuvjm/truur-cg-jia;dzq-oc-oekzh/xntuh-kq-ggt -- Transfer Train Goal, [place] Level independent -- Transfer Training Goal, Additional Goal abides sternal precautions -- Transfer Training Goal, Outcome -- goal met * Consult Note - Jana Crenshaw RN - 09/23/2016 9:41 AM EST [facility] CARDIAC REH[facility]ILITATION Purnima Thacker was seen today regarding participation in the outpatient Phase 2 Cardiac Rehabilitation at [facility]. The patient agrees to a referral [...] Another Service: (cardiac rehab) NICOLE HERNANDEZ, PT Pager:[phone] Inpatient Physical Therapy Problem: Acute Rehab Services Goal & Intervention Plan Goal: Bed Mobility Goal Stand Alone Therapy Goal Outcome: Ongoing (Interventions Implemented as Appropriate) 09/22/16 1611 Bed Mobility Goal Bed Mobility Goal, Time to Achieve 4 days Bed Mobility Goal, Activity Type scoot/bridge;supine to sit/sit to supine Bed Mobility Goal, [place] Level independent Bed Mobility Goal, Additional Goal able to abide sternal precautions during transfers Goal: Gait Training Goal Stand Alone Therapy Goal Outcome: Ongoing (Interventions Implemented as Appropriate) 09/22/16 1611 Gait Training Goal Gait Training Goal, Date Established 09/22/16 Gait Training Goal, Time to Achieve 4 days Gait Training Goal, [place] Level independent Gait Training Goal, Distance to Achieve ascend and descends 2 steps independently Goal: Goal Transfer Training Stand Alone Therapy Goal Outcome: Ongoing (Interventions Implemented as Appropriate) 09/22/16 1611 Goal Transfer Training Transfer Training Goal, Time to Achieve 4 days Transfer Training Goal, Activity Type zma-og-rceym/fdncj-rp-ngd;ssl-yp-qbphc/fhavp-up-ftd Transfer Train Goal, [place] Level independent Transfer Training Goal, Additional Goal [...] of completing AD's at home, chooses her usitvc-as-fjb, Martha Thacker (home) for her [facility], 2nd choice in friend, Nitesh Leroy [place], [place] Current Coping/Education/Information Needs: patient sitting up [...] who live close by, [place], and her fwzxzu-fw-kxl Martha Thacker who she has chosen to be her DPOAH. Also has a friend Nitesh Leroy who lives in [place], [place], also her DPOAH choice. Behavioral Health History: none on file in [facility] Substance Use/Abuse: none on file in [facility] Other Pertinent/Service Specific Information: none Health/Prescription Coverage: Primary Insurance: [employer] Secondary Insurance: none Prescription Coverage: yes, per patient no issues Preferred Pharmacy: ?? Other: none Primary Care Provider: Deborah Quiroga, ASSISTANT MANAGER QUALITY MANAGEMENT [phone] Patient/Caregiver Goals of Treatment: per medical team recommendations at discharge for CT surgery Potential Needs for Transition of Care: Rehab/SNF: TBD Home Health: TBD DME: no Dialysis: no Community Resources: non3 Transportation: ride home with a friend Other: none Anticipated Barriers to Discharge/Special Considerations: none anticipated at this time Plan: patient will need VNA services at discharge. The patient/it sales representative has been provided a list of Home Health Agencies/DME vendors which servetheir preferred geographic area. A letter describing our affiliations was reviewed with them and they were educated about their right to choose where referrals are placed. Patient requests referral to: [facility] [employer]. PHONE: [phone] FAX: [phone] Expected date of discharge: Fri/Sat? CM called VNA to confirm referral, talked with VALDO Bunn/intake who stated she was familiar w/patient & would monitor her progress through curaspan. Referral routed to the Information Assurance Specialist for matching with agency/vendor and to provide any required information. A member of the Care Management team will continue to monitor progress, follow for continuity of care and assist with transition of care planning. Amanda Moreno RN Pager: [phone] * Op Note - Alirio Esparza MD - 09/21/2016 12:53 PM EST 09/23/2016 Purnima Thacker 1955 [id number] Preoperative Diagnosis: Symptomatic aortic stenosis Postoperative Diagnosis: Symptomatic aortic stenosis Procedure: Aortic valve replacement: Bovine Pericardial 25 mm Surgeon: Alirio Esparza M.D. [employer] Tech: Philip BALL Anesthesia: General endotracheal anesthesia Drains: [...] Operative Note Patient Name: Purnima Thacker : [id number] MR#: [id number] Case Date: 09/21/2016 Surgeon: Surgeon(s) and Role: * Alirio Esparza MD - Primary * Nico Palacios PA - Physician [employer] Tech Preoperative diagnosis: Postoperative diagnosis: Procedure(s) (LRB): @REPLACE [...] AM EDT Appointment [place] [address] 05/12/2024 10:00 AM EDT Office Visit [place] [address] Markel Borjas MD [facility] DR HEMATOLOGY [place] [address] 03/01/2025 4:15 PM EDT Office Visit Dermatology at [address] [place] [address] Marek Bonilla MD [address] [facility] [address] [facility] [address] [address], [place] [address] Scheduled Orders Name Type Priority Associated Diagnoses [...] IMPLANTABLE DEVICES SCAN 09/26/2016 12:00 AM EST RN SOCIAL SERVICES SCAN 09/26/2016 12:00 AM EST POTASSIUM Routine [...] SCAN EXT O RDR/RSLT * SCAN DOC: RN SOCIAL SERVICES (09/26/2016 12:00 AM EST) Anatomical Region Laterality Modality Other Narrative 09/26/2016 12:00 AM EST Ordered by an unspecified provider. Scanning Provider MEDIA MGR SCAN EXT O RDR/RSLT * Potassium (09/25/2016 4:32 AM EST) Pathologist [facility] Potassium 4.4 3.5 - 5.0 mmol/L [facility] [...] ORDERABLE S [facility] [place] [address] * (ABNORMAL) Differential, Automated (09/24/2016 9:56 AM EST) Neutrophil % 76.8 % [facility] Neutrophil Absolute 7.79(H) 1.70 - 6.10 x10(3)/mc L [facility] Lymph % 11.1 % [facility] Lymphocytes Abs 1.1 0.9 - 3.2 x10(3)/mc L [facility] Monocyte % 8.5 % [facility] Monocyte Abs 0.9 0.3 - 0.9 x10(3)/mc L [facility] Eos % 0.5 % [facility] Eosinophils Abs 0.0 0.0 - 0.4 x10(3)/[facility] Basophil % 0.2 % [facility] Baso Absolute 0.0 0.0 - 0.1 x10(3)/[facility] LAB[facility] Immature Gran % 2.90 % [facility] Comment: Immature granulocytes(IG's)percentage and absolute count will include metamyelocytes, myelocytes, and promyelocytes. Blood smears from CBCs yielding IG's will be scanned manually for concordance. If this scan disagrees with the automated IG or if promyelocytes are noted, a manual differential will be performed. Immature Gran Absolute 0.29(H) 0.00 - 0.04 x10(3)/[facility] LAB[facility] Blood specimen (specimen) 09/24/2016 9:56 AM EST 09/24/2016 10:04 AM EST Narrative Resulting Agency Comment Spec In Lab Alirio Esparza MD HEMATOLOGY ORDERABL ES [facility] [place] [address] * (ABNORMAL) Hemogram (09/24/2016 9:56 AM EST) White Blood Cell 10.1(H) 4.0 - 9.5 x10(3)/[facility] Red Blood Cell 2.87(L) 4.00 - 5.21 x10(6)/[facility] Hemoglobin 9.4(L) 11.7 - 15.5 gm/dL [facility] Hematocrit 28.3(L) 35.7 - 45.8 % [facility] Mean Cell Volume 98.6(H) 82.6 - 94.4 fL [facility] Mean Cell Hemoglobin 32.8(H) 27.1 - 32.0 pg [facility] Mean Cell Hemoglobin Concentration 33.2 31.7 - 35.0 gm/dL [facility] Platelet 141(L) 145 - 357 x10(3)/mc L [facility] RDW Standard Deviation 45.0 37.0 - 46.0 fL [facility] RDW coefficient of variation 12.6 11.5 - 14.1 % [facility] Mean Platelet Volume 9.4 7.6 - 12.9 fL [facility] NRBC% auto 1.1 % [facility] NRBC Absolute 0.110(H) 0.000 - 0.000 x10(3)/mc L [facility] Blood specimen (specimen) 09/24/2016 9:56 AM EST 09/24/2016 10:04 AM EST Narrative Resulting Agency Comment Spec In Lab Alirio Esparza MD HEMATOLOGY ORDERABL ES [facility] [place] [id number] * (ABNORMAL) Basic Metabolic Panel (non-fasting) (09/24/2016 9:56 AM EST) Glucose 111 65 - 199 mg/dL [facility] Comment:Diabetes: >=200 mg/d L plus symptoms Blood Urea Nitrogen 23(H) 8 - 18 mg/dL [facility] [...] [facility] Carbon Dioxide 26 22 - 31 mmol/L [facility] Anion Gap 14 5 - 15 mmol/L [facility] Calcium 9.1 8.5 - 10.5 mg/dL [facility] Est Glomerular Filtration Rate >60 [...] the following links into your internet browser. [email or web address] Blood specimen (specimen) 09/24/2016 9:56 AM EST 09/24/2016 10:04 AM EST Narrative Resulting Agency Comment Spec In Lab Alirio Esparza MD CHEMISTRY ORDERABLE S [facility] [place] [address] * XR Chest PA & Lateral (Generic) [...] ORDERABLE S [facility] [place] [address] * POCT Glucose (09/22/2016 8:17 AM EST) Glucose, POC 131 65 - 199 mg/dL [facility] Comment: Supplemental ranges: <140 mg/dL before meals <180 mg/dL all other times of the day Blood specimen (specimen) 09/22/2016 8:17 AM EST 09/22/2016 8:17 AM EST Narrative Authorizing Provider Result Slade Esparza MD POINT OF CARE TEST ORDERABLES [facility] [place] [address] * POCT Glucose (09/22/2016 4:01 AM EST) [facility] Glucose, POC 135 65 - 199 mg/dL [facility] Comment: Supplemental ranges: <140 mg/dL before meals <180 mg/dL all other times of the day Blood specimen (specimen) 09/22/2016 4:01 AM EST 09/22/2016 4:01 AM EST Alirio Esparza MD POINT OF CARE TEST ORDERABLES Performing Organization Address [facility] Co de Phone Number [facility] [place] [address] * Scan, Peripheral Blood (09/22/2016 4:00 AM EST) [facility] Plat estimate Normal [facility] RBC Morphology Abnormal [facility] Macrocyte 1-5 /HPF [facility] Plat, Giant Less than 1 /HPF [facility] Blood specimen (specimen) 09/22/2016 4:00 AM EST 09/22/2016 4:34 AM EST Narrative Resulting Agency Comment Spec In Lab Alirio Esparza MD HEMATOLOGY ORDERABL ES Performing Organization Address [facility] Co de Phone Number [facility] [place] [address] * Electrolytes panel (09/22/2016 4:00 AM EST) [facility] Sodium 145 135 - 145 mmol/L [facility] [...] [facility] Carbon Dioxide 24 22 - 31 mmol/L [facility] Anion Gap 14 5 - 15 mmol/L [facility] Blood specimen (specimen) Venous Draw / Unknown 09/22/2016 4:00 AM EST 09/22/2016 4:34 AM EST Narrative Resulting Agency Comment Spec In Lab Alirio Esparza MD CHEMISTRY ORDERABLE S [facility] [place] [address] * (ABNORMAL) Differential, Automated (09/22/2016 4:00 AM EST) Neutrophil % 70.9 % [facility] Neutrophil Absolute 5.33 1.70 - 6.10 x10(3)/ L [facility] Lymph % 9.1 % [facility] Lymphocytes Abs 0.7(L) 0.9 - 3.2 x10(3)/[facility] Monocyte % 18.0 % [facility] Monocyte Abs 1.4(H) 0.3 - 0.9 x10(3)/ L [facility] Eos % 0.0 % [facility] Eosinophils Abs 0.0 0.0 - 0.4 x10(3)/[facility] Basophil % 0.1 % [facility] Baso Absolute 0.0 0.0 - 0.1 x10(3)/ L [facility] Immature Gran % 1.90 % [facility] Comment: Immature granulocytes(IG's)percentage and absolute count will include metamyelocytes, myelocytes, and promyelocytes. Blood smears from CBCs yielding IG's will be scanned manually for concordance. If this scan disagrees with the automated IG or if promyelocytes are noted, a manual differential will be performed. Immature Gran Absolute 0.14(H) 0.00 - 0.04 x10(3)/ L [facility] Blood specimen (specimen) 09/22/2016 4:00 AM EST 09/22/2016 4:34 AM EST Narrative Resulting Agency Comment Spec In Lab Alirio Esparza MD HEMATOLOGY ORDERABL ES Performing Organization Address City/[facility]/ZIP Co de Phone Number [facility] [place] [address] * (ABNORMAL) Hemogram (09/22/2016 4:00 AM EST) White Blood Cell 7.5 4.0 - 9.5 x10(3)/mc L [facility] Red Blood Cell 2.93(L) 4.00 - 5.21 x10(6)/mc L [facility] Hemoglobin 9.2(L) 11.7 - 15.5 gm/dL [facility] Hematocrit 28.0(L) 35.7 - 45.8 % [facility] Mean Cell Volume 95.6(H) 82.6 - 94.4 fL [facility] Mean Cell Hemoglobin 31.4 27.1 - 32.0 pg [facility] Mean Cell Hemoglobin Concentration 32.9 31.7 - 35.0 gm/dL [facility] Platelet 161 145 - 357 x10(3)/mc L [facility] RDW Standard Deviation 44.0 37.0 - 46.0 fL [facility] RDW coefficient of variation 12.6 11.5 - 14.1 % [facility] Mean Platelet Volume 9.3 7.6 - 12.9 fL [facility] NRBC% auto 0.3 % [facility] NRBC Absolute 0.020(H) 0.000 - 0.000 x10(3)/mc L [facility] Blood specimen (specimen) 09/22/2016 4:00 AM EST 09/22/2016 4:34 AM EST Narrative Resulting Agency Comment Spec In Lab Alirio Esparza MD HEMATOLOGY ORDERABL ES [facility] [place] [address] * (ABNORMAL) Cardiac Enzymes (09/22/2016 4:00 AM EST) Pathologist [facility] Troponin-T 0.13(H) <=0.03 ng/mL [facility] [...] document of the Joint Society of Cardiology/[place] [employer] Committee for the redefinition of myocardial infarction. ??Journal of the [place] [employer] 2000; 36: 959-969] Creatine Kinase 338(H) 0 - 160 unit/L [facility] Blood specimen (specimen) 09/22/2016 4:00 AM EST 09/22/2016 4:34 AM EST Narrative Resulting Agency Comment Spec In Lab Alirio Esparza MD CHEMISTRY ORDERABLE S [facility] [place] [address] * (ABNORMAL) Glucose, fasting (09/22/2016 4:00 AM EST) Pathologist [facility] Glucose Fasting 137(H) 65 - 99 [...] Diabetes Mellitus, Position Statement from the [place] [employer]. ??Diabetes Care, Volume 33, Supplement 1, Aug 2009 Blood specimen (specimen) 09/22/2016 4:00 AM EST 09/22/2016 4:34 AM EST Narrative Resulting Agency Comment Spec In Lab Alirio Esparza MD CHEMISTRY ORDERABLE S Performing Organization Address [facility] Co de Phone Number [facility] [place] [address] * (ABNORMAL) Creatinine (09/22/2016 4:00 AM EST) [facility] Signature Creatinine 0.69(L) 0.70 - 1.20 mg/dL [facility] [...] the following links into your internet browser. [email or web address] Blood specimen (specimen) 09/22/2016 4:00 AM EST 09/22/2016 4:34 AM EST Narrative Resulting Agency Comment Spec In Lab Alirio Esparza MD CHEMISTRY ORDERABLE S Performing Organization Address [facility] Co de Phone Number [facility] [place] [address] * BUN (09/22/2016 4:00 AM EST) Blood Urea Nitrogen 10 8 - 18 mg/dL [facility] Blood specimen (specimen) 09/22/2016 4:00 AM EST 09/22/2016 4:34 AM EST Narrative Resulting Agency Comment Spec In Lab Alirio Esparza MD CHEMISTRY ORDERABLE S Performing Organization Address City/[facility]/ZIP Co de Phone Number [facility] [place] [address] * POCT Glucose (09/21/2016 9:59 PM EST) Glucose, POC 146 65 - 199 mg/dL [facility] Comment: Supplemental ranges: <140 mg/dL before meals <180 mg/dL all other times of the day Blood specimen (specimen) 09/21/2016 9:59 PM EST 09/21/2016 9:59 PM EST Alirio Esparza MD POINT OF CARE TEST ORDERABLES Performing Organization Address [facility]/ZIP Co de Phone Number [facility] [place] [address] * POCT Glucose (09/21/2016 7:26 PM EST) Glucose, POC 152 65 - 199 mg/dL [facility] Comment: Supplemental ranges: <140 mg/dL before meals <180 mg/dL all other times of the day Blood specimen (specimen) 09/21/2016 7:26 PM EST 09/21/2016 7:26 PM EST Alirio Esparza MD POINT OF CARE TEST ORDERABLES Performing Organization Address City/[facility]/ZIP Co de Phone Number [facility] [place] [address] * POCT Glucose (09/21/2016 6:00 PM EST) Glucose, POC 146 65 - 199 mg/dL [facility] Comment: Supplemental ranges: <140 mg/dL before meals <180 mg/dL all other times of the day Blood specimen (specimen) 09/21/2016 6:00 PM EST 09/21/2016 6:00 PM EST Alirio Esparza MD POINT OF CARE TEST ORDERABLES [facility] [place] [address] * (ABNORMAL) BLOOD GAS 2 ARTERIAL (09/21/2016 4:42 PM EST) pH, Arterial 7.35(L) 7.35 - 7.45 [facility] PCO2, Arterial 48(H) 35 - 45 mmHg [facility] PO2, Arterial 108(H) 85 - 104 mmHg [facility] Bicarbonate, Arterial 26.0 20.0 - 26.0 mmol/L [facility] Base Excess, Arterial 0.5 -3.0 - 3.0 mmol/L [facility] Hgb Blood Gas 10.4(L) 11.7 - 15.5 gm/dL [facility] Oxyhemoglobin, Arterial 96.2 94.0 - 97.0 % [facility] Carboxyhemoglob in, Arterial 0.0 % [facility] Comment: Nonsmokers: 0.5-1.5% COHB Smokers: Variable, but usually less than 10% Toxic: 20-30% COHB Lethal: Greater than 60% COHB Methemoglobin, Arterial 0.7 <=1.5 % [facility] Na Whole Blood 139 135 [...] [facility] FIO2 Art 40 % [facility] PF Ratio Art 270 [facility] Blood specimen (specimen) 09/21/2016 4:42 PM EST 09/21/2016 4:42 PM EST Alirio Esparza MD POINT OF CARE TEST ORDERABLES Performing Organization Address [facility] Co de Phone Number [facility] [place] [address] * POCT Glucose (09/21/2016 4:07 PM EST) Glucose, POC 150 65 - 199 mg/dL [facility] Comment: Supplemental ranges: <140 mg/dL before meals <180 mg/dL all other times of the day Blood specimen (specimen) 09/21/2016 4:07 PM EST 09/21/2016 4:07 PM EST Alirio Esparza MD POINT OF CARE TEST ORDERABLES Performing Organization Address [facility] Co de Phone Number [facility] [place] [address] * (ABNORMAL) Hemoglobin (09/21/2016 4:05 PM EST) Hemoglobin 9.9(L) 11.7 - 15.5 gm/dL [facility] Blood specimen (specimen) 09/21/2016 4:05 PM EST 09/21/2016 4:20 PM EST Narrative Resulting Agency Comment Spec In Lab Alirio Esparza MD HEMATOLOGY ORDERABL ES Performing Organization Address [facility] Co de Phone Number [facility] [place] [address] * Potassium (09/21/2016 4:05 PM EST) Potassium 4.6 3.5 - 5.0 mmol/L [facility] [...] MD CHEMISTRY ORDERABLE S Performing Organization Address City/[facility]/ZIP Co de Phone Number [facility] [place] [address] * POCT Glucose (09/21/2016 2:52 PM EST) Glucose, POC 117 65 - 199 mg/dL [facility] Comment: Supplemental ranges: <140 mg/dL before meals <180 mg/dL all other times of the day Blood specimen (specimen) 09/21/2016 2:52 PM EST 09/21/2016 2:52 PM EST Alirio Esparza MD POINT OF CARE TEST ORDERABLES Performing Organization Address City/[facility]/ZIP Co de Phone Number [facility] [place] [address] * POCT Glucose (09/21/2016 1:51 PM EST) Glucose, POC 108 65 - 199 mg/dL [facility] Comment: Supplemental ranges: <140 mg/dL before meals <180 mg/dL all other times of the day Blood specimen (specimen) 09/21/2016 1:51 PM EST 09/21/2016 1:51 PM EST Alirio Esparza MD POINT OF CARE TEST ORDERABLES Performing Organization Address City/[facility]/ZIP Co de Phone Number [facility] [place] [address] * POCT Glucose (09/21/2016 12:54 PM EST) Glucose, POC 128 65 - 199 mg/dL [facility] Comment: Supplemental ranges: <140 mg/dL before meals <180 mg/dL all other times of the day Blood specimen (specimen) 09/21/2016 12:54 PM EST 09/21/2016 12:54 PM EST Alirio Esparza MD POINT OF CARE TEST ORDERABLES [facility] [place] [address] * EKG 12 Lead (09/21/2016 12:26 PM EST) Ventricular rate 87 BPM MUSE SYSTEM Atrial Rate 87 BPM MUSE SYSTEM P-R Interval 256 ms MUSE SYSTEM QRS Duration 90 ms MUSE SYSTEM Q-T Interval 406 ms MUSE SYSTEM QTC Calculated (Bezet) 488 ms MUSE SYSTEM Calculated P Yo[place] 24 degrees MUSE SYSTEM Calculated R [place] 21 degrees MUSE SYSTEM Calculated T Yo[place]um -5 degrees MUSE SYSTEM INTERPRETATION Sinus rhythm with 1st degree A-V block Nonspecific T wave abnormality Prolonged QT Abnormal ECG When compared with ECG of 19-MAY-2016 11:43, SD interval has increased T wave inversion now [...] course of the esophagus and below the [id number]. There is a right IJ PA catheter [...] the course of theesophagus and below the [id number]. There is a right IJ PA catheter [...] EST) pH, Arterial 7.41 7.35 - 7.45 [facility] PCO2, Arterial 42 35 - 45 mmHg [facility] PO2, Arterial 356(H) 85 - 104 mmHg [facility] Bicarbonate, Arterial 26.2(H) 20.0 - 26.0 mmol/L [facility] Base Excess, Arterial 1.6 -3.0 - 3.0 mmol/L [facility] Hgb Blood Gas 10.7(L) 11.7 - 15.5 gm/dL [facility] Oxyhemoglobin, Arterial 98.1(H) 94.0 - 97.0 % [facility] Carboxyhemoglob in, Arterial 0.3 % [facility] Comment: Nonsmokers: 0.5-1.5% COHB Smokers: Variable, but usually less than 10% Toxic: 20-30% COHB Lethal: Greater than 60% COHB Methemoglobin, Arterial 0.8 <=1.5 % [facility] Na Whole Blood 140 135 [...] [facility] FIO2 Art 100 % [facility] PF Ratio Art 356 [facility] Blood specimen (specimen) 09/21/2016 12:20 PM EST 09/21/2016 12:20 PM EST Alirio Esparza MD POINT OF CARE TEST ORDERABLES [facility] [place] [address] * (ABNORMAL) BLOOD GAS 2 ARTERIAL (09/21/2016 10:54 AM EST) pH, Arterial 7.43 7.35 - 7.45 [facility] PCO2, Arterial 40 35 - 45 mmHg [facility] PO2, Arterial 297(H) 85 - 104 mmHg [facility] Bicarbonate, Arterial 26.0 20.0 - 26.0 mmol/L [facility] Base Excess, Arterial 1.6 -3.0 - 3.0 mmol/L [facility] Hgb Blood Gas 8.6(L) 11.7 - 15.5 gm/dL [facility] Oxyhemoglobin, Arterial 98.6(H) 94.0 - 97.0 % [facility] Carboxyhemoglob in, Arterial 0.5 % [facility] Comment: Nonsmokers: 0.5-1.5% COHB Smokers: Variable, but usually less than 10% Toxic: 20-30% COHB Lethal: Greater than 60% COHB Methemoglobin, Arterial 0.3 <=1.5 % [facility] Na Whole Blood 134(L) 135 [...] [facility] FIO2 Art 95 % [facility] Flow Art 0.7 LPM [facility] PF Ratio Art 313 [facility] Temp Art 36.7 Celsius [facility] Blood specimen (specimen) 09/21/2016 10:54 AM EST 09/21/2016 10:54 AM EST Alirio Esparza MD POINT OF CARE TEST ORDERABLES [facility] [place] [address] * Thrombin time (09/21/2016 10:50 AM EST) [...] HEMATOLOGY ORDERABLE S Performing Organization Address [facility] Co de Phone Number [facility] [place] [address] * Fibrinogen (09/21/2016 10:50 AM EST) Fibrinogen [...] ORDERABLE S [facility] [place] [address] * APTT (09/21/2016 10:50 AM EST) Partial Thromboplastin Time 32 25 - 35 sec [facility] Comment: The recommended therapeutic range for full dose, unfractionated heparin at [facility] is 80 ? 114 seconds. [...] HEMATOLOGY ORDERABLE S Performing Organization Address [facility] de Phone Number [facility] [place] [address] * (ABNORMAL) Prothrombin Time (09/21/2016 10:50 AM EST) Prothrombin Time 18.7(H) 12.0 - 15.0 sec [facility] International Normalization Ratio 1.5(H) 0.9 - 1.1 [facility] Blood specimen (specimen) 09/21/2016 10:50 AM EST 09/21/2016 10:56 AM EST Narrative Resulting Agency Comment Spec In Lab Luis Enrique Quarles MD HEMATOLOGY ORDERABLE S Performing Organization Address [facility] de Phone Number [facility] [place] [address] * (ABNORMAL) Hemogram (09/21/2016 10:50 AM EST) White Blood Cell 14.7(H) 4.0 - 9.5 x10(3)/mc L [facility] Red Blood Cell 2.40(L) 4.00 - 5.21 x10(6)/mc L [facility] Hemoglobin 7.9(L) 11.7 - 15.5 gm/dL [facility] Hematocrit 23.2(L) 35.7 - 45.8 % [facility] Comment: This result has been called to MICHELLE GRIGSBY by ASHU MORENO on 09 21 2016 at 1102, and has been read back. Mean Cell Volume 96.7(H) 82.6 - 94.4 fL [facility] Mean Cell Hemoglobin 32.9(H) 27.1 - 32.0 pg [facility] Mean Cell Hemoglobin Concentration 34.1 31.7 - 35.0 gm/dL [facility] Platelet 117(L) 145 - 357 x10(3)/mc L [facility] RDW Standard Deviation 42.6 37.0 - 46.0 fL [facility] RDW coefficient of variation 12.1 11.5 - 14.1 % [facility] Mean Platelet Volume 9.2 7.6 - 12.9 fL [facility] NRBC% auto 0.1 % [facility] NRBC Absolute 0.020(H) 0.000 - 0.000 x10(3)/mc L [facility] Blood specimen (specimen) 09/21/2016 10:50 AM EST 09/21/2016 10:56 AM EST Narrative Resulting Agency Comment Spec In Lab Luis Enrique Quarles MD HEMATOLOGY ORDERABLE S Performing Organization Address City/[facility] Co de Phone Number [facility] [place] [address] * Prepare Platelets, Apheresis (09/21/2016 10:30 AM EST) Pathologist [facility] Dispensed? Yes [facility] Blood specimen (specimen) 09/21/2016 10:30 AM EST 09/21/2016 10:28 AM EST Alirio Esparza MD BLOOD BANK PRODUCT ORDERABLES Performing Organization Address City/[facility]/ZIP Co de Phone Number [facility] [place] [address] * (ABNORMAL) BLOOD GAS 2 ARTERIAL (09/21/2016 10:05 AM EST) Pathologist [facility] pH, Arterial 7.33(L) 7.35 - 7.45 [facility] PCO2, Arterial 54(Critic al) 35 - 45 mmHg [facility] Comment:Noted by stringed instrument tuner. PO2, Arterial 218(H) 85 - 104 mmHg [facility] Bicarbonate, Arterial 27.9(H) 20.0 - 26.0 mmol/L [facility] Base Excess, Arterial 2.0 -3.0 - 3.0 mmol/L [facility] Hgb Blood Gas 8.6(L) 11.7 - 15.5 gm/dL [facility] Oxyhemoglobin, Arterial 98.4(H) 94.0 - 97.0 % [facility] Carboxyhemoglo bin, Arterial 0.5 % [facility] Comment: Nonsmokers: 0.5-1.5% COHB Smokers: Variable, but usually less than 10% Toxic: 20-30% COHB Lethal: Greater than 60% COHB Methemoglobin, Arterial 0.3 <=1.5 % [facility] Na Whole Blood 129(L) 135 - 145 mmol/L [facility] K Whole Blood 6.2(Criti gabrielle) 3.5 - 5.0 mmol/L [facility] Comment: Noted by stringed instrument tuner. Please note: Patients with WBC >100,000 may [...] [facility] Temp Art 37.0 Celsius [facility] Blood specimen (specimen) 09/21/2016 10:05 AM EST 09/21/2016 10:05 AM EST Alirio Esparza MD POINT OF CARE TEST ORDERABLES [facility] [place] [address] * (ABNORMAL) BLOOD GAS 2 ARTERIAL (09/21/2016 9:44 AM EST) pH, Arterial 7.22(Criti gabrielle) 7.35 - 7.45 [facility] Comment:Noted by stringed instrument tuner. PCO2, Arterial 70(Critica l) 35 - 45 mmHg [facility] Comment:Noted by stringed instrument tuner. PO2, Arterial 224(H) 85 - 104 mmHg [facility] Bicarbonate, Arterial 27.8(H) 20.0 - 26.0 mmol/L [facility] Base Excess, Arterial 0.0 -3.0 - 3.0 mmol/L [facility] Hgb Blood Gas 8.7(L) 11.7 - 15.5 gm/dL [facility] Oxyhemoglobin, Arterial 98.5(H) 94.0 - 97.0 % [facility] Carboxyhemoglob in, Arterial 0.6 % [facility] Comment: Nonsmokers: 0.5-1.5% COHB Smokers: Variable, but usually less than 10% Toxic: 20-30% COHB Lethal: Greater than 60% COHB Methemoglobin, Arterial 0.3 <=1.5 % [facility] [...] OF CARE TEST ORDERABLES Performing Organization Address [facility] de Phone Number [facility] [place] [address] * (ABNORMAL) Hemoglobin (09/21/2016 9:42 AM EST) Hemoglobin 7.2(L) 11.7 - 15.5 gm/dL [facility] Blood specimen (specimen) 09/21/2016 9:42 AM EST 09/21/2016 9:51 AM EST Narrative Resulting Agency Comment Spec In Lab Alirio Esparza MD HEMATOLOGY ORDERABL ES Performing Organization Address [facility] Phone Number [facility] [place] [address] * Platelet count (09/21/2016 9:42 AM EST) Platelet 159 145 - 357 x10(3)/mc L [facility] Immature Plt % 1.6 0.0 - 7.4 % [facility] Comment: Limitation of the Immature Platelet Fraction (IPF)-May be less reliable when the platelet count is less than [id number] due to statistical imprecision. The IPF value [...] in a decreased state of production. References: [employer] The Clinical Value of the Immature Platelet Fraction (IPF) in Cell Recovery Document Number [id number] 12/2010 [employer] The Role of the Immature Platelet Fraction (IPF) in the Differential Diagnosis of Thrombocytopenia, Document [id number] V05/07/15 P012/13 Blood specimen (specimen) 09/21/2016 9:42 AM EST 09/21/2016 9:51 AM EST Narrative Resulting Agency Comment Spec In Lab Alirio Esparza MD HEMATOLOGY ORDERABL ES Performing Organization Address [facility] Co de Phone Number [facility] [place] [address] * (ABNORMAL) Hematocrit (09/21/2016 9:42 AM EST) [...] HEMATOLOGY ORDERABL ES Performing Organization Address [facility] Co de Phone Number [facility] [place] [address] * Fibrinogen (09/21/2016 9:42 AM EST) Fibrinogen [...] ORDERABL ES [facility] [place] [address] * (ABNORMAL) BLOOD GAS 2 ARTERIAL (09/21/2016 9:10 AM EST) pH, Arterial 7.36 7.35 - 7.45 [facility] PCO2, Arterial 48(H) 35 - 45 mmHg [facility] PO2, Arterial 295(H) 85 - 104 mmHg [facility] Bicarbonate, Arterial 26.0 20.0 - 26.0 mmol/L [facility] Base Excess, Arterial 0.5 -3.0 - 3.0 mmol/L [facility] Hgb Blood Gas 8.0(L) 11.7 - 15.5 gm/dL [facility] Oxyhemoglobin, Arterial 98.3(H) 94.0 - 97.0 % [facility] Carboxyhemoglob in, Arterial 1.0 % [facility] Comment: Nonsmokers: 0.5-1.5% COHB Smokers: Variable, but usually less than 10% Toxic: 20-30% COHB Lethal: Greater than 60% COHB Methemoglobin, Arterial 0.3 <=1.5 % [facility] Na Whole Blood 135 135 [...] [facility] Temp Art 37.0 Celsius [facility] Blood specimen (specimen) 09/21/2016 9:10 AM EST 09/21/2016 9:10 AM EST Alirio Esparza MD POINT OF CARE TEST ORDERABLES [facility] [place] [address] * Surgical Pathology Report (09/21/2016 9:09 AM EST) Final Diagnosis [id number] ?Location: 3T The signing pathologist has (i) [...] ?. (R1) ??ADELITA 09/24/2016 9:32 AM EST [facility] AORTIC STRUCTURE / Unknown 09/21/2016 9:09 AM EST 09/21/2016 9:09 AM EST Alirio Esparza MD PATHOLOGY/CYTOLOGY ORDERABLES Performing Organization Address City/[facility]/[place] [address] * Specimen to Pathology (surgical or derm) (09/21/2016 9:09 AM EST) AP Specimen 09/21/2016 9:09 AM EST 09/21/2016 9:09 AM EST Narrative [facility] - 09/21/2016 9:09 AM EST Specimen requisition ordered. ??Separate Pathology report to follow Alirio Esparza MD PATHOLOGY/CYTOLOGY ORDERABLES Performing Organization Address [facility] [place] [address] * (ABNORMAL) BLOOD GAS 2 ARTERIAL (09/21/2016 8:50 AM EST) pH, Arterial 7.41 7.35 - 7.45 [facility] PCO2, Arterial 33(L) 35 - 45 mmHg [facility] PO2, Arterial 348(H) 85 - 104 mmHg [facility] Bicarbonate, Arterial 20.6 20.0 - 26.0 mmol/L [facility] Base Excess, Arterial -4.1(L) -3.0 - 3.0 mmol/L [facility] Hgb Blood Gas 9.5(L) 11.7 - 15.5 gm/dL [facility] Oxyhemoglobin, Arterial 98.8(H) 94.0 - 97.0 % [facility] Carboxyhemoglob in, Arterial 0.3 % [facility] Comment: Nonsmokers: 0.5-1.5% COHB Smokers: Variable, but usually less than 10% Toxic: 20-30% COHB Lethal: Greater than 60% COHB Methemoglobin, Arterial 0.3 <=1.5 % [facility] Na Whole Blood 137 135 [...] [facility] Co de Phone Number [facility] [place] [address] * (ABNORMAL) BLOOD GAS 2 ARTERIAL (09/21/2016 8:18 AM EST) pH, Arterial 7.42 7.35 - 7.45 [facility] PCO2, Arterial 36 35 - 45 mmHg [facility] PO2, Arterial 283(H) 85 - 104 mmHg [facility] Bicarbonate, Arterial 22.8 20.0 - 26.0 mmol/L [facility] Base Excess, Arterial -2.0 -3.0 - 3.0 mmol/L [facility] Hgb Blood Gas 12.6 11.7 - 15.5 gm/dL [facility] Oxyhemoglobin, Arterial 99.0(H) 94.0 - 97.0 % [facility] Carboxyhemoglob in, Arterial 0.6 % [facility] Comment: Nonsmokers: 0.5-1.5% COHB Smokers: Variable, but usually less than 10% Toxic: 20-30% COHB Lethal: Greater than 60% COHB Methemoglobin, Arterial 0.0 <=1.5 % [facility] Na Whole Blood 144 135 [...] [facility] FIO2 Art 95 % [facility] Flow Art 1.1 LPM [facility] PF Ratio Art 298 [facility] Temp Art 35.6 Celsius [facility] Blood specimen (specimen) 09/21/2016 8:18 AM EST 09/21/2016 8:18 AM EST Alirio Esparza MD POINT OF CARE TEST ORDERABLES [facility] [place] [address] * Prepare RBC (09/21/2016 7:05 AM EST) Dispensed? Yes [facility] Blood specimen (specimen) 09/21/2016 7:05 AM EST 09/21/2016 7:02 AM EST Alirio Esparza MD BLOOD BANK PRODUCT ORDERABLES [facility] [place] [address] * POCT Glucose (09/21/2016 6:42 AM EST) Glucose, POC 104 65 - 199 mg/dL [facility] Comment: Supplemental ranges: <140 mg/dL before meals <180 mg/dL all other times of the day Blood specimen (specimen) 09/21/2016 6:42 AM EST 09/21/2016 6:42 AM EST Alirio Esparza MD POINT OF CARE TEST ORDERABLES Performing Organization Address [facility] Co de Phone Number [facility] [place] [address] documented in this encounter Visit Diagnoses Diagnosis [...] dose on Wed09/21/16 at 1230, Until Discontinued, [place] teeth, Routine Given 09/25/2016 9:40 AM EST [...] if phenyleprine and/or vasopressin ineffective.Call pager # [phone] if initiated., Routine Rate/Dose Change 09/21/2016 2:27 [...] 2.0 L/min/M2. Maximum volume 2 L. Call manager of warehouse for additional fluid orders: pager #[phone]. Rate/Dose Verify 09/22/2016 10:00 AM EST 10 [...] dose on Wed09/21/16 at 1230, Until Discontinued, [place] teeth, Routine 0900 (Not Given - Provider: [...] Routine documented in this encounter Care Teams Architecture Professor Relationship Specialty Start Date End Date Deborah Quiroga APRN PCP - General Family Medicine 03/24/16 02/04/23 documented as of this encounter
--- OUTSIDE RECORDS SUMMARY | 2024-04-20 14:26 | XMS_ITS | Encounter Summary ---
[place] [address] Care Team Providers Care Service Correspondent Name Role Phone JunaidDeborah APRN Primary Care Provider [phone] Reason for Visit * Reason Onset Date Comments Labs Only 09/16/2016 Encounter Details Date Type Department Care Team (Late st Contact Info) Description 09/16/2016 Telephone [place]ematology [place] [address] Alexandrea Greenwood, RN Labs Only Social History [...] 09/16/2016 11:09 AM EST Message received from ap operator: Purnima is having her Neulasta done today at [facility]. ??She is wondering if we want to do a CBC prior to the injection? [phone] Borjas: CBC is fine RN spoke with Swapna at [facility] who confirms they can draw CBC on pt today, RN faxed CBC w/diff to [facility] lab at [phone] RN relayed to pt that CBC ordered had been faxed to [facility], pt will have CBC drawn today prior to neulasta injection. documented in this encounter Plan of Treatment Upcoming Encounters Date Type Department Care Team (Late st Contact Info) Description 05/12/2024 9:00 AM EDT Appointment [place] [address] 05/12/2024 10:00 AM EDT Office Visit [place]ematology [place] [phone] Markel Borjas MD [facility] [address] [place] [address] 03/01/2025 4:15 PM EDT Office Visit Dermatology at [place] [address] [place] [phone] Marek Bonilla MD [address] [facility], ON LICENSE OF [facility] [place] [address] documented as of this encounter [...] type documented in this encounter Care Teams Service Correspondent Relationship Specialty Start Date End Date Deborah Quiroga APRN PCP - General Family Medicine 03/24/16 02/04/23 documented as of this encounter
--- OUTSIDE RECORDS SUMMARY | 2024-04-20 14:26 | XMS_ITS | Encounter Summary ---
[place] [address] Care Team Providers Care Heliotherapist Name Role Phone Deborah Quiroga ANURAG Primary Care Provider [phone] Encounter Details Date Type Department Care Team (Late st Contact Info) Description 09/11/2016 Orders Only Hematology [place] [address] Alexandrea Greenwood RN Social History [...] as of this encounter Progress Notes * lAexandrea Greenwood RN - 09/11/2016 1:20 PM EST Images from the original note were not included. [facility] HEM ONC [facility] [phone] Date: 09/11/16 Patient Name: Purnima Thacker : 1955 Diagnosis: Neutropenia Referral to [site]: [facility] Orders: ? Growth factor: [x] Neulasta 6mg SQ injection x 1 on 09/16/16 Signature: Markel Borjas MD beeper # [id number] Co-signature [if needed]: documented in this encounter Plan of Treatment Upcoming Encounters Date Type Department Care Team (Late st Contact Info) Description 05/12/2024 9:00 AM EDT Appointment Hematology [place] [address] 05/12/2024 10:00 AM EDT Office Visit Hematology [place] [address] Markel Borjas MD [facility] [address] [place] [address] 03/01/2025 4:15 PM EDT Office Visit Dermatology at [place] [address] [facility] [address] [place] [address] Marek Bonilla MD [address], [address] [place] [address] documented as of this encounter Procedures Procedure Name Priority Date/Time Associated Diagnosis Comments TRANSESOPHAGEAL ECHOCARDIOGRAM (GAVINO) Routine 09/22/2016 documented in this encounter Results * Transesophageal Echocardiogram (GAVINO) (09/22/2016) Anatomical Region Laterality Modality Other 09/22/2016 Narrative 09/22/2016 8:30 AM EST Procedure: ?Transesophageal Echocardiogram Patient: ?ANDREW ECHOLS M ? (Age): 1955(61y) Med Rec#: ? [id number] ?Sex: ?M ? Site Loc: ? [facility] ?Ht / Wt: ??(cm)/ (kg) ? Pt. Loc: ?OR ? Study Date: ?? 09/21/2016 ?Pt. Type: Tape: ? 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 AVR for severe Rhythm: ? [...] ? Mid-Inferior ?Normal ? Mid-Inferoseptal ?Normal ? [place]-Septal ? Normal ? [place]-Anterior ? Normal ? [place]-Lateral ?Normal ? [place]-Inferior ? Normal ? [place]-Tip ?Normal ? This report has been electronically signed by: Henrik Yarbrough M.D. ? 09/22/2016 08:30:41 Images reviewed and interpretation verified [facility] Card[facility] Ul[facility]ound [facility] Procedure Note Henrik Yarbrough MD - 09/22/2016 Procedure: Transesophageal Echocardiogram Patient: ANDREW Mejias (Age): 1955(61y) Med Rec#: [id number] Sex: M Site Loc: [facility] Ht / Wt: (cm)/ (kg) Pt. Loc: OR Study Date: 09/21/2016 Pt. 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 09/22/2016 08:30:41 Images reviewed and interpretation verified [facility] Unknown ECHO ORDERABLES documented in this encounter Visit Diagnoses Not on filedocumented in this encounter Care Teams Heliotherapist Relationship Specialty Start Date End Date Deborah Quiroga APRN PCP - General Family Medicine 03/24/16 02/04/23 documented as of this encounter
--- OUTSIDE RECORDS SUMMARY | 2024-04-20 14:26 | XMS_ITS | Encounter Summary ---
[place] [address] Care Team Providers Care Hearing Stenographer Name Role Phone Deborah Quiroga APRN Primary Care Provider [phone] Reason for Visit * Reason Onset Date Comments Prior Authorization 09/11/2016 Neulasta Encounter Details Date Type Department Care Team (Late st Contact Info) Description 09/11/2016 Telephone Hematology [place] [phone] Monica Wick Prior Authorization (Neulasta ) Social [...] AM EST Prior Auth for Neulasta (Approved) [facility] is a covered facility under the members plan. ID# [id number] Call placed to [phone] Rationale: Can you please start a PA for this pt to receive as outpatient at [facility] on 09/16/16? 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 ??Her last ANC was 0.56 (or 560) on 08/04/16. ??This will need to be approved through her medical as out patient. J code for neulasta. ?? J2505. Spoke w/ Anna Marie Call Reference [id number] Copay: $ Deductible is not met, patient will have out of pocket costs until deductible is met. documented in this encounter Plan of Treatment Upcoming Encounters Date Type Department Care Team (Late st Contact Info) Description 05/12/2024 9:00 AM EDT Appointment Hematology [place] [address] 05/12/2024 10:00 AM EDT Office Visit Hematology [place] [address] Markel Borjas MD [facility] [address] HEMATOLOGY [place] [address] 03/01/2025 4:15 PM EDT Office Visit Dermatology at [place] [address] [facility] [place] [address] Marek Bonilla MD [address] [place] [address] documented as of this encounter Visit Diagnoses Not on filedocumented in this encounter Care Teams Hearing Stenographer Relationship Specialty Start Date End Date Deborah Quiroga APRN PCP - General Family Medicine 03/24/16 02/04/23 documented as of this encounter
--- OUTSIDE RECORDS SUMMARY | 2024-04-20 14:27 | XMS_ITS | Encounter Summary ---
Author Organization [place] [address] Care Team Providers Care Biostatistics Teacher Name Role Phone Junaid Deborah Shields APRN Primary Care Provider [phone] Encounter Details Date Type Department Care Team (Latest Contact Info) Description 05/19/2016 11:00 AM EDT Clinical [place] [phone] Nonrheumatic aortic valve stenosis Social History Tobacco [...] AM EDT Appointment Hematology [place] [address] 05/12/2024 10:00 AM EDT Office Visit Hematology [place] [address] Markel Borjas MD [facility] [address] HEMATOLOGY [place] [address] 03/01/2025 4:15 PM EDT Office Visit Dermatology at [place] [address] [facility] [phone] Marek Bonilla MD [address] [place] [address] documented as of this encounter Procedures Procedure [...] (Bezet) 448 ms MUSE SYSTEM Calculated P [place] 37 degrees MUSE SYSTEM Calculated R [place] 31 degrees MUSE SYSTEM Calculated T [place] 25 degrees MUSE SYSTEM INTERPRETATION Normal sinus rhythm Normal ECG No previous ECGs available Confirmed by MD Becca, Deangelo ([id number]) on 05/19/2016 5:23:33 PM MUSE SYSTEM 05/19/2016 11:4 3 AM EDT 05/19/2016 5:23 PM EDT Alirio Esparza MD ECG ORDERABLES Black coin SYSTEM documented in this encounter Visit Diagnoses Diagnosis Nonrheumatic aortic valve stenosis Aortic valve disorders documented in this encounter Care Teams Biostatistics Teacher Relationship Specialty Start Date End Date Deborah Quiroga, DRUM SAW OPERATOR PCP - General Family Medicine 03/24/16 02/04/23 documented as of this encounter
--- OUTSIDE RECORDS SUMMARY | 2024-04-20 14:27 | XMS_ITS | Encounter Summary ---
[place] [address] Care Team Providers Care Lead Relay Tester Name Role Phone Deborah Quiroga ANURAG Primary Care Provider [phone] Reason for Visit * Reason Onset Date Comments Medical Care Coordination 07/17/2016 Encounter Details Date Type Department Care Team ([facility] Contact Info) Description 07/17/2016 Telephone Hematology [place] [address] Alexandrea Greenwood RN Medical Care Coordination Social [...] 07/17/2016 12:07 PM EST Message received from campus president: Injection/Infusion Referral Call placed to [phone]). Spoke w/ Pasquale. Services to be provided for pt are: Labs @ 10am ([facility]) & Neulasta @ 11am on 07/20/16, CBC only on 07/30/16 Pasquale confirmed they would provide services to pt and I left [facility] for pt to call for appt info. Pt demographics, office note, med list and orders faxed to [facility] documented in this encounter Plan of Treatment Upcoming Encounters Date Type Department Care Team (Late st Contact Info) Description 05/12/2024 9:00 AM EDT Appointment Hematology [place] [address] 05/12/2024 10:00 AM EDT Office Visit Hematology [place] [address] Markel Borjas MD [facility] [address] [place] [address] 03/01/2025 4:15 PM EDT Office Visit Dermatology at [place] [address] [place] [phone] Marek Bonilla MD [address], [place] [address] documented as of this encounter Visit Diagnoses Not on filedocumented in this encounter Care Teams Lead Relay Tester Relationship Specialty Start Date End Date Deborah Quiroga APRN PCP - General Family Medicine 03/24/16 02/04/23 documented as of this encounter
--- OUTSIDE RECORDS SUMMARY | 2024-04-20 14:27 | XMS_ITS | Encounter Summary ---
Author Organization [facility] Address [facility] [place] [address] Care Team Providers Care Machine Burrer Name Role Phone Junaid Deborah Shields APRN Primary Care Provider [phone] Encounter Details Date Type Department Care Team (Latest Contact Info) Description 06/19/2016 - 06/19/2016 11:59 PM EST Hospital Encounter Radiology Library [place] [facility] [place] [phone] Nitesh Pina Jr., MD [facility] [place] [address] Pain Discharge Disposition: Home Social History Tobacco [...] AM EDT Appointment Hematology [place] [address] 05/12/2024 10:00 AM EDT Office Visit [place]ematology [place] [address] Markel Borjas MD [facility] [address] [place] [address] 03/01/2025 4:15 PM EDT Office Visit Dermatology at [place] [address] [place] [address] Marek Bonilla MD [address] [facility] [place] [address] documented as of this encounter Procedures Procedure Name Priority Date/Time Associated Diagnosis Comments FILM LIBRARY STORAGE ONLY CT CHEST ABDOMEN PELVIS Routine 06/19/2016 12:00 AM EST Pain documented in this encounter Results * Film Library- Storage Only CT Chest Abdomen Pelvis (06/19/2016 12:00 AM EST) Narrative [facility] - 06/20/2016 8:53 AM EST This exam is for storage only and is auto-finalizing. Nitesh Pina Jr., MD IMG FILM LIBRARY ORD ERABLES [place], [place] documented in this encounter Visit Diagnoses Diagnosis Pain Generalized pain documented in this encounter Care Teams Machine Burrer Relationship Specialty Start Date End Date Deborah Quiroga, SENIOR FRONT END ENGINEER PCP - General Family Medicine 03/24/16 02/04/23 documented as of this encounter
--- OUTSIDE RECORDS SUMMARY | 2024-04-20 14:27 | XMS_ITS | Encounter Summary ---
Author Organization [facility] [place] [address] Care Team Providers Care Operations Advisor Name Role Phone Deborah Quiroga APRN Primary Care Provider [phone] Encounter Details Date Type Department Care Team (Latest Contact Info) Description 07/10/2016 2:54 PM EST - 07/10/2016 11:59 PM EST Hospital [place] [address] Discharge Disposition: Home Social History Tobacco Use [...] AM EDT Appointment Hematology [place] [address] 05/12/2024 10:00 AM EDT Office Visit Hematology [place] [address] Markel Borjas MD [facility] [address] [place] [address] 03/01/2025 4:15 PM EDT Office Visit Dermatology at [place] [address] [facility] [place] [address] Marek Bonilla MD [address] [facility], [place] [address] documented as of this encounter Procedures Procedure Name Priority Date/Time Associated Diagnosis Comments BONE MARROW FINAL REPORT Routine 07/10/2016 3:43 PM EST documented in this encounter Results * Bone Marrow Final Report (07/10/2016 3:43 PM EST) Final Diagnosis [id number] ?Location: [facility]W The signing pathologist has (i) examined the relevant preparation(s) for the specimen(s) and (ii) rendered or confirmed the diagnosis(es). . ? Bone Marrow Final DIAGNOSIS BONE MARROW (PERIPHERAL SMEAR, ASPIRATE SMEAR, TOUCH PREP, CLOT SECTION, CORE BIOPSY); [OSR# [id number], COLLECTED 06/23/2016, 19 SLIDES]: ?? 1. ??Normocellular [...] clonal lymphoproliferative or myeloproliferative ? disorder (OSR# [id number]) ?Chromosome analysis on the marrow aspirate revealed a normal female karyotype; ?46,XX[25] ??(OSR# [id number]) Electronically signed by: ??Elian Guillen MD Verified: [...] 3/uL Band/Seg 0.52 x103/uL; Lymph 0.75 x103/uL; [place] 0.15 x103/uL; Eos 0.01%; Baso 0.01 x10 [...] plasma cells represent 3-4% of the cellularity [place] ? Polytypic plasma cell staining, high background Lambda ?Polytypic plasma cell staining, high background Block: ? B2 (Core biopsy 2) Fixative: ?? Formalin ANTIBODY: ?? RESULT/COMMENT CD3 ? Scattered small lymphocytes and lymphoid aggregates highlighted CD20 ?Few scattered small lymphocytes stain ( ?? <CD3 in aggregates) CD138 ? Scattered plasma cells represent 3-4% of the cellularity [place] ? Polytypic plasma cell staining, high background Lambda ?Polytypic plasma cell staining, high background Note: The immunoperoxidase stains reported above were developed and their performance characteristics determined by [facility]. ??They [...] CONSULTATION CASE A - 19 slides labeled [id number], collection date 06/23/2016. [id number] Report to: [facility] Surgical Pathology Department [facility], [facility], [address]nd Floor [address] [place] [id number] 07/13/2016 11:38 AM EST [facility] Consult Case 07/10/2016 3:43 PM EST 07/10/2016 3:43 PM EST Nitesh Pina Jr., MD PATHOLOGY/CYTOLOGY O RDERABLES [facility] [place] [address] documented in this encounter Visit Diagnoses Not on filedocumented in this encounter Care Teams Operations Advisor Relationship Specialty Start Date End Date Deborah Quiroga, WOOD GANG SAWYER PCP - General Family Medicine 03/24/16 02/04/23 documented as of this encounter
--- OUTSIDE RECORDS SUMMARY | 2024-04-20 14:27 | XMS_ITS | Encounter Summary ---
Author Organization [facility] [place] [address] Care Team Providers Care Billing Rep Name Role Phone Deborah Quiroga ANURAG Primary Care Provider [phone] Encounter Details Date Type Department Care Team (Late st Contact Info) Description 06/09/2016 Orders Only [place] [address] Nitesh Pina Jr., MD [facility] DR HEMATOLOGY [place] [address] Cyclical neutropenia Social History Tobacco Use Types [...] AM EDT Appointment [place]emat[place] [phone] 05/12/2024 10:00 AM EDT Office Visit [place] [address] Markel Borjas MD [facility] DR HEMATOLOGY [place] [address] 03/01/2025 4:15 PM EDT Office Visit Dermatology at [place] [address] [place] [address] Marek Bonilla MD [address] [place] [address] documented as of this encounter Results * Immunophenotyping Flow Cytometry (06/09/2016 4:53 PM EST) Immunophenotyping Flow See Comment [facility] Comment: When completed by the Pathologist, the Flow Cytometry Report ([id number]) will display under the Pathology Results section within eDH. Specimen of unknown material (specimen) 06/09/2016 4:53 PM EST 06/09/2016 5:00 PM EST Narrative Resulting Agency Comment Spec In Lab Nitesh Pina Jr., MD HEMATOLOGY ORDERABLE S Performing Organization Address City/State/[place]UST Co de Phone Number [facility] [place] [address] documented in this encounter Visit Diagnoses Diagnosis Cyclical neutropenia Cyclic neutropenia documented in this encounter Care Teams Billing Rep Relationship Specialty Start Date End Date Deborah Quiroga, ANURAG PCP - General Family Medicine 03/24/16 02/04/23 documented as of this encounter
--- OUTSIDE RECORDS SUMMARY | 2024-04-20 14:27 | XMS_ITS | Encounter Summary ---
Author Organization [facility] Address [facility] [place] [address] Care Team Providers Care Snuff Grinder And Screener Name Role Phone Junaid, Deborah Shields APRN Primary Care Provider [phone] Reason for Visit * Auth/Cert Specialty Diagnoses / Procedures Referred By Crispin t Referred To Contact Diagnoses AVS Procedures CARDIAC CATHETERIZATION Referral ID Status Reason Start Date Expiration Date Visits Re quested Visits Authorized [id number] 1 1 Encounter Details Date Type Department Care Team (Late st Contact Info) Description 06/03/2016 7:30 AM EDT - 06/03/2016 8:30 AM EDT Surgery [place] [phone] Mario Alberto Escobedo MD [facility] [place] [address] CARDIAC CATHETERIZATION Social History Tobacco Use Types [...] by your doctor, do not take any xarp-mur-ydbfbbr medicinesor herbal preparations without first discussing this with your doctor or pharmacist. There is the possibility of side effects and interactions when these are combined. Follow Up Care Who to call with questions or problems If there are any questions or problems that you think might be related to your cardiac cath or angioplasty, contact the quality assurance technician extractions technician by calling [facility] at . * Patient Instructions* Felicia Corrigan - 06/03/2016 9:33 AM EDT Cardiology Instructions Call your doctor if: Chest pain, dyspnea, pain or swelling in legs occurs. If you have non-emergent questions between now and the time of your follow up appointments: -During 8am-5pm Wednesday through Wednesday call [phone] to speak with a nurse in the cardiology clinic -All other times call [phone] and ask to speak to the merchandise deliverer extractions technician. MEDICATIONS - restart your spironolactone, discontinue prior [...] Appointments: Primary care provider: Cardiology: Deborah Hahn, MOCK UP MAKER [phone] Follow up as planned or as needed. Dr. Esparza [phone] Other follow-up appointment: Hematology - Dr. Mario [...] AM EDT Appointment Hematology [place] [address] 05/12/2024 10:00 AM EDT Office Visit Hematology [place] [address] Markel Borjas MD [facility] [address] [place] [address] 03/01/2025 4:15 PM EDT Office Visit Dermatology at [place] [address] [facility] [place] [phone] Marek Bonilla MD [address], [place] [address] documented as of this encounter Procedures Procedure [...] AM EDT) Green Hold Sample in lab. [facility] Blood specimen (specimen) Venous Draw / Unknown 06/03/2016 11:45 AM EDT 06/03/2016 12:12 PM EDT Mario Alberto Escobedo MD CHEMISTRY ORDERABLES Performing Organization Address City/[facility]/ZIP Co de Phone Number [facility] [place] [address] * Methylmalonic acid, serum (06/03/2016 11:45 AM EDT) Methylmalonic Acid (NOVEMBER) 0.21 <=0.40 nmol/mL [facility] Comment: Test Performed by: [address] [address] [employer]: Raymond Chaudhry II, M.D., Ph.D. Blood specimen (specimen) 06/03/2016 11:45 AM EDT 06/03/2016 1:57 PM EDT Narrative Resulting Agency Comment Spec In Lab Mario Alberto Escobedo MD LAB SEND OUT ORDERAB LES Performing Organization Address City/[facility]/ZIP Co de Phone Number [facility] [place] [address] * Granulocyte Antibody (06/03/2016 11:45 AM EDT) Pathologist [facility] Granulocyte Ab (NOVEMBER) Negative Not Applicable [facility] Comment: ADDITIONAL INFORMATION Method: Immunofluorescent Assay Performing Laboratory CLIA# [id number] This test was developed and its performance characteristics determined by [facility] in a manner consistent with CLIA requirements. This test has not been cleared or approved by the U.S. Food and Drug Administration. Test Performed by: [place] [address] [employer]: Raymond Chaudhry II, M.D., Ph.D. Blood specimen (specimen) 06/03/2016 11:45 AM EDT 06/03/2016 1:57 PM EDT Narrative Resulting Agency Comment Spec In Lab Mario Alberto Escobedo MD LAB SEND OUT ORDERAB LES [facility] [place] [address] * TSH (06/03/2016 11:45 AM EDT) Pathologist [facility] Thyroid Stimulating Hormone 2.18 0.27 - 4.20 mcIU/mL [facility] Blood specimen (specimen) 06/03/2016 11:45 AM EDT 06/03/2016 12:11 PM EDT Narrative Resulting Agency Comment Spec In Lab Mario Alberto Escobedo MD CHEMISTRY ORDERABLES Performing Organization Address City/[facility]/ZIP Co de Phone Number [facility] [place] [address] * Homocysteine Total, Plasma (06/03/2016 11:45 AM EDT) Homocystine 9 <=15 mcmol/L [facility] Blood specimen (specimen) 06/03/2016 11:45 AM EDT 06/03/2016 12:11 PM EDT Narrative Resulting Agency Comment Spec In Lab Mario Alberto Escobedo MD CHEMISTRY ORDERABLES Performing Organization Address City/[facility] Co de Phone Number [facility] [place] [address] * Folate, serum (06/03/2016 11:45 AM EDT) Folate >20.0 4.8 - 24.2 ng/mL [facility] Blood specimen (specimen) 06/03/2016 11:45 AM EDT 06/03/2016 12:04 PM EDT Narrative Resulting Agency Comment Spec In Lab Mario Alberto Escobedo MD CHEMISTRY ORDERABLES Performing Organization Address [facility] Co de Phone Number [facility] [place] [address] * (ABNORMAL) Sedimentation rate (06/03/2016 11:45 AM EDT) Sedimentation Rate Automated 41(H) 0 - 20 mm/hr [facility] Blood specimen (specimen) 06/03/2016 11:45 AM EDT 06/03/2016 12:04 PM EDT Narrative Resulting Agency Comment Spec In Lab Mario Alberto Escobedo MD HEMATOLOGY ORDERABLE S Performing Organization Address City/[facility] Co de Phone Number [facility] [place] [address] * Lactate Dehydrogenase (06/03/2016 11:45 AM EDT) Lactate Dehydrogenase 164 110 - 220 unit/L [facility] Blood specimen (specimen) 06/03/2016 11:45 AM EDT 06/03/2016 12:11 PM EDT Narrative Resulting Agency Comment Spec In Lab Mario Alberto Escobedo MD CHEMISTRY ORDERABLES Performing Organization Address City/[facility]/ZIP Co de Phone Number [facility] [place] [address] * Comprehensive metabolic panel (non-fasting) (06/03/2016 11:45 [...] the following links into your internet browser. [email or web address] Blood specimen (specimen) 06/03/2016 11:45 AM EDT 06/03/2016 12:11 PM EDT Narrative Resulting Agency Comment Spec In Lab Mario Alberto Escobedo MD CHEMISTRY ORDERABLES [facility] [place] [address] documented in this encounter Visit Diagnoses Diagnosis [...] Hernandez) documented in this encounter Care Teams Snuff Grinder And Screener Relationship Specialty Start Date End Date Deborah Quiroga APRN PCP - General Family Medicine 03/24/16 02/04/23 documented as of this encounter
--- OUTSIDE RECORDS SUMMARY | 2024-04-20 14:27 | XMS_ITS | Encounter Summary ---
Author Organization [facility] Address [facility] [place] [address] Care Team Providers Care General Clerk Name Role Phone Deborah Quiroga ANURAG Primary Care Provider [phone] Encounter Details Date Type Department Care Team (Latest Contact Info) Description 08/18/2016 4:40 PM EST Laboratory [place] [address] Aortic valve stenosis, unspecified etiology [...] AM EDT Appointment [place] [address] 05/12/2024 10:00 AM EDT Office Visit [place] [address] Markel Borjas MD [facility] [address] HEMATOLOGY [place] [address] 03/01/2025 4:15 PM EDT Office Visit Dermatology at [address] [phone] Marek Bonilla MD [address], [place] [address] documented as of this encounter Procedures Procedure Name Priority Date/Time Associated Diagnosis Comments ABORH RECHECK STATUS Routine 08/18/2016 4:50 PM EST TYPE AND SCREEN, SDP (FUTURE SURGERY, [facility] SAME DAY PROGRAM ONLY) [...] 4:50 PM EST) ABORH Type Recheck Completed [facility] Blood specimen (specimen) 08/18/2016 4:50 PM EST 08/18/2016 5:27 PM EST Narrative Resulting Agency Comment Spec In Lab Alirio Esparza MD [facility]LOOD BANK LAB [facility] Organization Address City/State/ZIP Co de Phone Number [facility] [place] [address] * Antibody screen (08/18/2016 4:50 PM EST) Ab Screen Interp Negative [facility] Expires at 2359 on: 09/24/2016 [facility] Comment: Corrected from 09/17/16 12:00 [Unknown] on 09/09/16 02:32 by Shireen Treviño Blood specimen (specimen) 08/18/2016 4:50 PM EST 08/18/2016 5:11 PM EST Narrative Resulting Agency Comment Spec In Lab Alirio Esparza MD BLOOD BANK LAB [place] Performing Organization Address City/[facility]/ZIP Co de Phone Number [facility] [place] [address] * ABO/Rh Typing (08/18/2016 4:50 PM EST) ABORH Type B Pos [facility] Blood specimen (specimen) 08/18/2016 4:50 PM EST 08/18/2016 5:11 PM EST Narrative Resulting Agency Comment Spec In Lab Alirio Esparza MD BLOOD BANK LAB [place] Performing Organization Address [facility] Co de Phone Number [facility] [place] [address] * Basic Metabolic Panel (non-fasting) (08/18/2016 4:50 PM EST) [facility] Glucose 82 65 - 199 mg/dL [...] the following links into your internet browser. [email or web address] Blood specimen (specimen) 08/18/2016 4:50 PM EST 08/18/2016 5:03 PM EST Narrative Resulting Agency Comment Spec In Lab Alirio Esparza MD CHEMISTRY ORDERABLE S [facility] [place] [address] documented in this encounter Visit Diagnoses Diagnosis Aortic valve stenosis, unspecified etiology documented in this encounter Care Teams General Clerk Relationship Specialty Start Date End Date Deborah Quiroga APRN PCP - General Family Medicine 03/24/16 02/04/23 documented as of this encounter
--- OUTSIDE RECORDS SUMMARY | 2024-04-20 14:27 | XMS_ITS | Encounter Summary ---
[place] [address] Care Team Providers Care Coal Sampler Name Role Phone Deborah Quiroga APRN Primary Care Provider [phone] Reason for Visit * Reason Onset Date Comments Pre Procedure Call 06/18/2016 Encounter Details Date Type Department Care Team (Late st Contact Info) Description 06/18/2016 Telephone Hematology [place] [address] Alexandrea Greenwood RN Pre Procedure Call Social [...] AM EDT Appointment Hematology [place] [address] 05/12/2024 10:00 AM EDT Office Visit Hematology [place] [address] Markel Borjas MD [facility] [address] [place] [address] 03/01/2025 4:15 PM EDT Office Visit Dermatology at [place] [address] [facility] [place] [address] Marek Bonilla MD [address], [place] [address] documented as of this encounter Visit Diagnoses Not on filedocumented in this encounter Care Teams Coal Sampler Relationship Specialty Start Date End Date Deborah Quiroga, DIRECTOR OF LEADERSHIP DEVELOPMENT PCP - General Family Medicine 03/24/16 02/04/23 documented as of this encounter
--- OUTSIDE RECORDS SUMMARY | 2024-04-20 14:27 | XMS_ITS | Encounter Summary ---
Author Organization [facility] Address [facility] [place] [address] Care Team Providers Care Gallery Or Museum Technician Name Role Phone Ashley Quirogan Cornelius ANURAG Primary Care Provider [phone] Encounter Details Date Type Department Care Team (Late st Contact Info) Description 08/11/2016 Telephone Hematology [place] [phone] Markel Borjas MD [facility] [address] [place] [address] Social History Tobacco Use Types Packs/Day Years [...] AM EDT Appointment Hematology [place] [address] 05/12/2024 10:00 AM EDT Office Visit Hematology [place] [address] Markel Borjas MD [facility] [address] [place] [address] 03/01/2025 4:15 PM EDT Office Visit Dermatology at [place] [address] [facility] [place] [phone] Marek Bonilla MD [address], [place] [address] documented as of this encounter Visit Diagnoses Not on filedocumented in this encounter Care Teams Gallery Or Museum Technician Relationship Specialty Start Date End Date Deborah Quiroga APRN PCP - General Family Medicine 03/24/16 02/04/23 documented as of this encounter
--- OUTSIDE RECORDS SUMMARY | 2024-04-20 14:27 | XMS_ITS | Encounter Summary ---
Author Organization [facility] Address [facility] [place] [address] Care Team Providers Care Practice Physician Name Role Phone Deborah Quiroga APRN Primary Care Provider [phone] Encounter Details Date Type Department Care Team (Latest Contact Info) Description 05/19/2016 11:52 AM EDT - 05/19/2016 11:59 PM EDT Hospital Encounter XRay at [address] [place] [address] Alirio Esparza MD Nonrheumatic aortic valve stenosis [...] AM EDT Appointment Hematology [place] [address] 05/12/2024 10:00 AM EDT Office Visit [place]ematology [place] [address] Markel Borjas MD [facility] [address] [place] [address] 03/01/2025 4:15 PM EDT Office Visit Dermatology at [place] [address] [facility] [place] [address] Marek Bonilla MD [address] [facility] [place] [address] documented as of this encounter Procedures Procedure [...] disorders documented in this encounter Care Teams Practice Physician Relationship Specialty Start Date End Date Deborah Quiroga, CERAMICS ENGINEER PCP - General Family Medicine 03/24/16 02/04/23 documented as of this encounter
--- OUTSIDE RECORDS SUMMARY | 2024-04-20 14:27 | XMS_ITS | Encounter Summary ---
Author Organization [facility] [place] [address] Care Team Providers Care Manager Rn Case Name Role Phone Danni Laird INTERIOR BLOCK WIRER Primary Care Provider [phone] Encounter Details Date Type Department Care Team (Late st Contact Info) Description 01/23/2014 Orders Only Cardiology at [address] [address] Lee Kincaid MD [facility] [address] [place]OLOGY [place], [place] [phone] SOB (shortness of breath) (Primary Dx) Social [...] AM EDT Appointment Hematology [place] [address] 05/12/2024 10:00 AM EDT Office Visit Hematology [place] [address] Markel Borjas MD [facility] [place] [address] 03/01/2025 4:15 PM EDT Office Visit Dermatology at [place] [address] [facility] [place] [address] Marek Bonilla MD [address], [place] [address] documented as of this encounter Results * Echocardiogram Transthoracic(Leb) (01/23/2014 3:17 PM EDT) EF 50 HEARTLAB SYSTEM Anatomical Region Laterality Modality Other 01/23/2014 Narrative 01/23/2014 4:35 PM EDT Procedure: ? Transthoracic Echocardiogram Patient: ? ANDREW ECHOLS M ?(Age): 1955(58) Med Rec#: ?[id number] ? Sex: ?F ? Site Loc[facility] ? Ht / Wt: ??158(cm)/93(kg) Pt. Loc: ? Adult Floor ?BSA: ?2.02 Study Date: ?01/23/2014 ? Pt. Type: Inpatient Tape: ? Referring: Lee Kincaid ([id number]) Referring: ANNALISA Director Patient Accounting: Miguel Beverly Diagnosis:CPT Code(s): ??Echo Full (69065), ??Spectral Doppler (73521), Color Doppler (43406), Indication(s): ??Aortic stenosis Rhythm: Sinus HR ?BP [...] ? Mid-Inferior ?Hypokinetic ? Mid-Inferoseptal ?Hypokinetic ? [place]-Septal ? Hypokinetic ? [place]-Anterior ? Hypokinetic ? [place]-Lateral ?Hypokinetic ? [place]-Inferior ? Hypokinetic ? [place]-Tip ?Hypokinetic ? Chambers ?Value ?Units (Range) ? [...] Images reviewed and interpretation verified [facility] Cardiac Ultrasound Laboratory Procedure Note Lee Kincaid MD - 01/23/2014 Procedure: Transthoracic Echocardiogram Patient: ANDREW Mejias (Age): 1955(58) Med Rec#: [id number] Sex: F Site Loc: [facility] Ht / Wt: 158(cm)/93(kg) Pt. Loc: Adult Floor BSA: 2.02 Study Date: 01/23/2014 Pt. Type: Inpatient Tape: Referring: Lee Kincaid ([id number]) Referring: ANNALISA Director Patient Accounting: Miguel Beverly Diagnosis:CPT Code(s): Echo Full (23100), Spectral Doppler (05677), Color Doppler (31823), Indication(s): Aortic stenosis Rhythm: Sinus HR BP [...] Hypokinetic Mid-Posterolateral Hypokinetic Mid-Inferior Hypokinetic Mid-Inferoseptal Hypokinetic Oberon-Septal Hypokinetic Oberon-Anterior Hypokinetic [place]-Lateral Hypokinetic Oberon-Inferior Hypokinetic [place]-Tip Hypokinetic Chambers Value Units (Range) IVSd 2D [...] Images reviewed and interpretation verified [facility] Cardiac Ultrasound Laboratory Lee Kincaid MD ECHO ORDERABLES documented in this encounter Visit Diagnoses Diagnosis SOB (shortness of breath)- Primary Shortness of breath documented in this encounter Care Teams Manager Rn Case Relationship Specialty Start Date End Date Danni Laird APRN [address] [facility] [place] [address] PCP - General 01/23/14 11/11/14 documented as of this encounter
--- OUTSIDE RECORDS SUMMARY | 2024-04-20 14:27 | XMS_ITS | Encounter Summary ---
Author Organization [facility] Address [facility] [place] [address] Care Team Providers Care Medical Records Technician Name Role Phone JunaidAshley hargrovezac Shields APRN Primary Care Provider [phone] Reason for Visit * Consultation (Urgent) - Closed Specialty Diagnoses / Procedures Referred By Contac t Referred To Contact Cardiac Surgery Diagnoses aortic stenosis, consideration for valve replacement Antelmo Burrell MD [address] [place] [address] Alirio Esparza MD [facility] [place] [address] Referral ID Status Reason Start Date Expiration Date V isits Requested Visits Authorized [id number] Closed Connection Center 03/04/2016 03/04/2017 1 1 Encounter Details Date Type Department Care Team (Late st Contact Info) Description 03/24/2016 10:40 AM EDT Office [place] [phone] Alirio Esparza MD Aortic valve stenosis, unspecified [...] This is a patient of Antelmo Burrell [facility] Cardiology. Mrs. Thacker is being [...] 30 minute visit, 20 minutes were spent [id number] with the patient discussing aortic stenosis and valve replacement. documented in this encounter Plan of Treatment Upcoming Encounters Date Type Department Care Team (Late st Contact Info) Description 05/12/2024 9:00 AM EDT Appointment Hematology [place] [address] 05/12/2024 10:00 AM EDT Office Visit [place]ematology [place] [address] Markel Borjas MD [facility] [address] [place] [address] 03/01/2025 4:15 PM EDT Office Visit Dermatology at [place] [address] [facility] [place] [phone] Marek Bonilla MD [address], [address] [place] [address] documented as of this encounter Visit Diagnoses Diagnosis Aortic valve stenosis, unspecified etiology documented in this encounter Care Teams Medical Records Technician Relationship Specialty Start Date End Date Deborah Quiroga APRN PCP - General Family Medicine 03/24/16 02/04/23 documented as of this encounter
--- OUTSIDE RECORDS SUMMARY | 2024-04-20 14:27 | XMS_ITS | Encounter Summary ---
Author Organization [facility] [place] [address] Care Team Providers Care Vp Account Director Name Role Phone EitanDanni ANURAG Primary Care Provider [phone] Encounter Details Date Type Department Care Team (Late st Contact Info) Description 01/22/2014 Telephone Cardiology at [address] [phone] Cynthia Arrington LPN Social History Tobacco Use [...] LPN - 01/23/2014 2:39 PM EDT This movie writer did not receive a call back [...] AM EDT Appointment Hematology [place] [address] 05/12/2024 10:00 AM EDT Office Visit [place]ematology [place] [address] Markel Borjas MD [facility] [address] [place]EM[place]Y [place] [address] 03/01/2025 4:15 PM EDT Office Visit Dermatology at [place] [address] [facility] [place] [address] Marek Bonilla MD [address] [facility] [place] [place] [address] documented as of this encounter Visit Diagnoses Not on filedocumented in this encounter Care Teams Vp Account Director Relationship Specialty Start Date End Date Danni Laird APRN [address] [place] [address] PCP - General 01/23/14 11/11/14 documented as of this encounter
--- OUTSIDE RECORDS SUMMARY | 2024-04-20 14:27 | XMS_ITS | Encounter Summary ---
Author Organization [facility] Address [facility] [place] [address] Care Team Providers Care Principal Associate Name Role Phone JunaidAshley hargrovezac Shields APRN Primary Care Provider [phone] Reason for Visit * Auth/Cert Specialty Diagnoses / Procedures Referred By Crispin t Referred To Contact Diagnoses AVS Procedures CARDIAC CATHETERIZATION Referral ID Status Reason Start Date Expiration Date Visits Re quested Visits Authorized [id number] 1 1 Encounter Details Date Type Department Care Team (Late st Contact Info) Description 06/03/2016 6:32 AM EDT - 06/03/2016 1:10 PM EDT Hospital Encounter [place] [phone] Anjum Oliveros II, MD [facility] [place] [address] Mario Alberto Escobedo MD [facility] [place] [address] Aortic valve stenosis, unspecified etiology; Nonrheumatic aortic [...] by your doctor, do not take any ancv-[id number] medicinesor herbal preparations without first discussing this with your doctor or pharmacist. There is the possibility of side effects and interactions when these are combined. Follow Up Care Who to call with questions or problems If there are any questions or problems that you think might be related to your cardiac cath or angioplasty, contact the community manager mortgage protection sales by calling [facility] at . * Patient Instructions* Felicia Corrigan - 06/03/2016 9:33 AM EDT Cardiology Instructions Call your doctor if: Chest pain, dyspnea, pain or swelling in legs occurs. If you have non-emergent questions between now and the time of your follow up appointments: -During 8am-5pm Wednesday through Wednesday call [phone] to speak with a nurse in the cardiology clinic -All other times call [phone] and ask to speak to the human services manager mortgage protection sales. MEDICATIONS - restart your spironolactone, discontinue prior [...] Appointments: Primary care provider: Cardiology: Deborah Hahn, PAD MACHINE OFFBEARER [phone] Follow up as planned or as needed. Dr. Esparza [phone] Other follow-up appointment: Hematology - Dr. Mario [...] Appointment Hematology [place] [address] 05/12/2024 10:00 AM EDT Office Visit Hematology [place] [address] Markel Borjas MD [facility] [address] [place] [address] 03/01/2025 4:15 PM EDT Office Visit Dermatology at [place] [address] [place] [address] Marek Bonilla MD [address] [place] [address] documented as of this encounter Procedures Procedure [...] AM EDT) Green Hold Sample in lab. [facility] Blood specimen (specimen) Venous Draw / Unknown 06/03/2016 11:45 AM EDT 06/03/2016 12:12 PM EDT Mario Alberto Escobedo MD CHEMISTRY ORDERABLES [facility] [place] [address] * Methylmalonic acid, serum (06/03/2016 11:45 AM EDT) Methylmalonic Acid (NOVEMBER) 0.21 <=0.40 nmol/mL [facility] Comment: Test Performed by: [address] [address] Fiberglass Finisher: Raymond Chaudhry II, M.D., Ph.D. Blood specimen (specimen) 06/03/2016 11:45 AM EDT 06/03/2016 1:57 PM EDT Narrative Resulting Agency Comment Spec In Lab Mario Alberto Escobedo MD LAB SEND OUT ORDERAB LES Performing Organization Address [facility] Co de Phone Number [facility] [place] [address] * Granulocyte Antibody (06/03/2016 11:45 AM EDT) Granulocyte Ab (NOVEMBER) Negative Not Applicable [facility] Comment: ADDITIONAL INFORMATION Method: Immunofluorescent Assay Performing Laboratory CLIA# [id number] This test was developed and its performance characteristics determined by [facility] in a manner consistent with CLIA requirements. This test has not been cleared or approved by the U.S. Food and Drug Administration. Test Performed by: [place] [address] Fiberglass Finisher: Raymond Chaudhry II, M.D., Ph.D. Blood specimen (specimen) 06/03/2016 11:45 AM EDT 06/03/2016 1:57 PM EDT Narrative Resulting Agency Comment Spec In Lab Mario Alberto Escobedo MD LAB SEND OUT ORDERAB LES Performing Organization Address [facility] Co de Phone Number [facility] [place] [address] * TSH (06/03/2016 11:45 AM EDT) Thyroid Stimulating Hormone 2.18 0.27 - 4.20 mcIU/mL [facility] Blood specimen (specimen) 06/03/2016 11:45 AM EDT 06/03/2016 12:11 PM EDT Narrative Resulting Agency Comment Spec In Lab Mario Alberto Escobedo MD CHEMISTRY ORDERABLES Performing Organization Address [facility]/ZIP Co de Phone Number [facility] [place] [address] * Homocysteine Total, Plasma (06/03/2016 11:45 AM EDT) Homocystine 9 <=15 mcmol/L [facility] Blood specimen (specimen) 06/03/2016 11:45 AM EDT 06/03/2016 12:11 PM EDT Narrative Resulting Agency Comment Spec In Lab Mario Alberto Escobedo MD CHEMISTRY ORDERABLES Performing Organization Address City/[facility]/ZIP Co de Phone Number [facility] [place] [address] * Folate, serum (06/03/2016 11:45 AM EDT) Folate >20.0 4.8 - 24.2 ng/mL [facility] Blood specimen (specimen) 06/03/2016 11:45 AM EDT 06/03/2016 12:04 PM EDT Narrative Resulting Agency Comment Spec In Lab Mario Alberto Escobedo MD CHEMISTRY ORDERABLES Performing Organization Address City/[facility]/ZIP Co de Phone Number [facility] [place] [address] * (ABNORMAL) Sedimentation rate (06/03/2016 11:45 AM EDT) Sedimentation Rate Automated 41(H) 0 - 20 mm/hr [facility] Blood specimen (specimen) 06/03/2016 11:45 AM EDT 06/03/2016 12:04 PM EDT Narrative Resulting Agency Comment Spec In Lab Mario Alberto Escobedo MD HEMATOLOGY ORDERABLE S Performing Organization Address City/[facility]/ZIP Co de Phone Number [facility] [place] [address] * Lactate Dehydrogenase (06/03/2016 11:45 AM EDT) Lactate Dehydrogenase 164 110 - 220 unit/L [facility] Blood specimen (specimen) 06/03/2016 11:45 AM EDT 06/03/2016 12:11 PM EDT Narrative Resulting Agency Comment Spec In Lab Mario Alberto Escobedo MD CHEMISTRY ORDERABLES [facility] [place] [address] * Comprehensive metabolic panel (non-fasting) (06/03/2016 11:45 AM EDT) Glucose 90 65 - 199 mg/dL [facility] Comment:Diabetes: >=200 mg/d L plus symptoms Blood Urea Nitrogen 11 8 - 18 mg/dL [facility] Creatinine 0.83 0.70 - 1.20 mg/dL [facility] Comment: Please note that the pediatric reference intervals supplied above were not validated at [facility]. Results from pediatric patients should be interpreted in conjunction to the patient's age, height and muscle mass. Sodium 143 135 - 145 mmol/L [facility] Potassium 4.0 3.5 - 5.0 mmol/L [facility] Comment: Please note: ??Patients with WBC >100,000 may have falsely elevated Potassium levels. ??For accurate Potassium quantification in these patients send serum separator tube (gold top) for subsequent determinations. ??Contact the Clinical Chemistry Laboratory if there are any questions. Chloride 104 98 - 107 mmol/L [facility] Carbon Dioxide 25 22 - 31 mmol/L [facility] Anion Gap 14 5 - 15 mmol/L [facility] Calcium 9.2 8.5 - 10.5 mg/dL [facility] Protein, Total 7.0 6.1 - 8.0 gm/dL [facility] Albumin 4.0 3.2 - 5.2 gm/dL [facility] Aspartate Aminotransferase 17 0 - 30 unit/L [facility] Alanine Aminotransferase 9 0 - 30 unit/L [facility] Alkaline Phosphatase 81 40 - 104 unit/L [facility] Bilirubin, Total 0.4 0.2 - 1.3 mg/dL [facility] Bilirubin, Direct 0.1 0.0 - 0.3 mg/dL [facility] Est Glomerular [...] the following links into your internet browser. [email or web address] Blood specimen (specimen) 06/03/2016 11:45 AM EDT 06/03/2016 12:11 PM EDT Narrative Resulting Agency Comment Spec In Lab Mario Alberto Escobedo MD CHEMISTRY ORDERABLES Performing Organization Address City/State/[facility] Co de Phone Number [facility] [place] [phone] documented in this encounter Visit Diagnoses Diagnosis [...] Hernandez) documented in this encounter Care Teams Principal Associate Relationship Specialty Start Date End Date Deborah Quiroga, PAD MACHINE OFFBEARER PCP - General Family Medicine 03/24/16 02/04/23 documented as of this encounter
--- OUTSIDE RECORDS SUMMARY | 2024-04-20 14:27 | XMS_ITS | Encounter Summary ---
Author Organization [facility] [place] [address] Care Team Providers Care Vice President Of Development Name Role Phone Deborah Quiroga ANURAG Primary Care Provider [phone] Encounter Details Date Type Department Care Team (Late st Contact Info) Description 06/16/2016 Orders Only Hematology [place] [phone] Nitesh Pina Jr., MD [facility] [address] [place] [address] Cyclical neutropenia Social History Tobacco Use Types [...] AM EDT Appointment Hematology [place] [phone] 05/12/2024 10:00 AM EDT Office Visit Hematology [place] [address] Markel Borjas MD [facility] [address] [place] [address] 03/01/2025 4:15 PM EDT Office Visit Dermatology at [place] [address] [place] [phone] Marek Bonilla MD [address] [place] [address] documented as of this encounter Visit Diagnoses Diagnosis Cyclical neutropenia Cyclic neutropenia documented in this encounter Care Teams Vice President Of Development Relationship Specialty Start Date End Date Deborah Quiroga APRN PCP - General Family Medicine 03/24/16 02/04/23 documented as of this encounter
--- OUTSIDE RECORDS SUMMARY | 2024-04-20 14:27 | XMS_ITS | Encounter Summary ---
Author Organization [facility] Address [facility] [place] [address] Care Team Providers Care Rounder Hand Name Role Phone Deborah Quiroga APRN Primary Care Provider [phone] Reason for Visit * Reason Comments Schedule Office Case * Consultation (Routine) - Closed Specialty Diagnoses / Procedures Referred By Contac t Referred To Contact Hematology and Oncology Diagnoses Leukopenia Neutropenia LEUKOPENIA W/NEUTROPENIA Procedures TC PEGFILGRASTIM, 6MG, INJECTION LEUKOPENIA W/NEUTROPENIA Alirio Esparza MD [facility] [place] [address] Mario Alberto Ramos Jr., MD [facility] [address] [place] [address] Referral ID Status Reason Start Date Expiration Date V isits Requested Visits Authorized [id number] Closed Consult, Test & Treat 07/17/2016 07/17/2017 1 1 Encounter Details Date Type Department Care Team (Late st Contact Info) Description 06/09/2016 3:00 PM EST Office Visit Hematology [place] [address] Mario Alberto Ramos Jr., MD [facility] [place] [address] Cyclical neutropenia Social History Tobacco Use Types [...] 3:00 PM EST Hematology Outpatient [facility] Hematology Outpatient Consult Note CC: 60 year [...] Unknown See Comment Flow Cytometry Report Unknown [id number] ... HematoPathology: Flow Cytometry DIAGNOSIS 1. No [...] AM EDT Appointment Hematology [place] [address] 05/12/2024 10:00 AM EDT Office Visit Hematology [place] [address] [facility] [address] [place] [address] 03/01/2025 4:15 PM EDT Office Visit Dermatology at [place] [address] [place] [address] Marek Bonilla MD [address], [place] [address] documented as of this encounter Procedures Procedure [...] (06/09/2016 4:53 PM EST) Flow Cytometry Report [id number] ?Location: 3K The signing pathologist has (i) [...] by the Clinical Flow Cytometry Laboratory at [facility]. It has not been cleared or [...] high complexity clinical laboratory testing. SPECIMEN PROCESSING [id number] Cells for immunophenotypic analysis were derived from peripheral blood. ??CD45 vs side scatter gating was utilized to identify a lymphoid analysis region that comprises approximately 49-51% of all cells. The following markers were assessed: CD2, CD3, CD4, CD5, CD7, CD8, CD10, CD16, CD19, CD45, CD56, CD57, kappa light chain, and lambda light chain. CLINICAL INFORMATION 60 yo female with neutropenia. LGL panel requested. [facility] 06/09/2016 4:53 PM EST Mario Alberto Ramos Jr., MD PATHOLOGY/CYTOLOGY O RDERABLES Performing Organization Address City/[facility]/ZIP Co de Phone Number [facility] [place] [address] * Scan, Peripheral Blood (06/09/2016 4:53 PM EST) Plat estimate Normal [facility] RBC Morphology Normal [facility] Blood specimen (specimen) 06/09/2016 4:53 PM EST 06/09/2016 5:00 PM EST Narrative Resulting Agency Comment Spec In Lab Mario Alberto Ramos Jr., MD HEMATOLOGY ORDERABLE S Performing Organization Address City/[facility]/ZIP Co de Phone Number [facility] [place] [address] * (ABNORMAL) Differential, Automated (06/09/2016 4:53 PM EST) Pathologist [facility] Neutrophil % 27.7 % [facility] Neutrophil Absolute 0.48(Crit ical) 1.70 - 6.10 x10(3)/mc L [facility] Comment: Matches Previous Results.. This result has been called to NOT CALLED by Jesusita Argueta on 06 09 2016 at 1817, and has not been read back. MATCHES PREVIOUS RESULTS Lymph % 57.2 % [facility] Lymphocytes Abs 1.0 0.9 - 3.2 x10(3)/ L [facility] Monocyte % 13.3 % [facility] Monocyte Abs 0.2(L) 0.3 - 0.9 x10(3)/[facility] Eos % 0.6 % [facility] Eosinophils Abs 0.0 0.0 - 0.4 x10(3)/[facility] Basophil % 1.2 % [facility] Baso Absolute 0.0 0.0 - 0.1 x10(3)/[facility] Immature Gran % 0.00 % [facility] Comment: Immature granulocytes(IG's)percentage and absolute count will include metamyelocytes, myelocytes, and promyelocytes. Blood smears from CBCs yielding IG's will be scanned manually for concordance. If this scan disagrees with the automated IG or if promyelocytes are noted, a manual differential will be performed. Immature Gran Absolute 0.00 0.00 - 0.04 x10(3)/[facility] Blood specimen (specimen) 06/09/2016 4:53 PM EST 06/09/2016 5:00 PM EST Narrative Resulting Agency Comment Spec In Lab Mario Alberto Ramos Jr., MD HEMATOLOGY ORDERABLE S Performing Organization Address City/State/[facility] Co de Phone Number [facility] [place] [address] * (ABNORMAL) Hemogram (06/09/2016 4:53 PM EST) White Blood Cell 1.7(Criti gabrielle) 4.0 - 9.5 x10(3)/[facility] Red Blood Cell 3.92(L) 4.00 - 5.21 x10(6)/[facility] Hemoglobin 12.4 11.7 - 15.5 gm/dL [facility] Hematocrit 36.7 35.7 - 45.8 % [facility] Mean Cell Volume 93.6 82.6 - 94.4 fL [facility] Mean Cell Hemoglobin 31.6 27.1 - 32.0 pg [facility] Mean Cell Hemoglobin Concentration 33.8 31.7 - 35.0 gm/dL [facility] Platelet 234 145 - 357 x10(3)/mc L [facility] RDW Standard Deviation 39.8 37.0 - 46.0 fL [facility] RDW coefficient of variation 11.8 11.5 - 14.1 % [facility] Mean Platelet Volume 8.6 7.6 - 12.9 fL [facility] NRBC% auto 0.0 % [facility] NRBC Absolute 0.000 0.000 - 0.000 x10(3)/mc L [facility] Blood specimen (specimen) 06/09/2016 4:53 PM EST 06/09/2016 5:00 PM EST Narrative Resulting Agency Comment Spec In Lab Mario Alberto Ramos Jr., MD HEMATOLOGY ORDERABLE S Performing Organization Address City/[facility]/ZIP Co de Phone Number [facility] [place] [address] * Immunophenotyping Flow Cytometry (06/09/2016 4:53 PM EST) Immunophenotyping Flow See Comment [facility] Comment: When completed by the Pathologist, the Flow Cytometry Report ([id number]) will display under the Pathology Results section within [facility]. Specimen of unknown material (specimen) 06/09/2016 4:53 PM EST 06/09/2016 5:00 PM EST Narrative Resulting Agency Comment Spec In Lab Mario Alberto Ramos Jr., MD HEMATOLOGY ORDERABLE S Performing Organization Address City/[facility]/ZIP Co de Phone Number [facility] [place] [address] documented in this encounter Visit Diagnoses Diagnosis Cyclical neutropenia Cyclic neutropenia documented in this encounter Care Teams Rounder Hand Relationship Specialty Start Date End Date Deborah Quiroga APRN PCP - General Family Medicine 03/24/16 02/04/23 documented as of this encounter
--- OUTSIDE RECORDS SUMMARY | 2024-04-20 14:27 | XMS_ITS | Encounter Summary ---
Author Organization [facility] [place] [address] Care Team Providers Care Community Health Consultant Name Role Phone Ashley Quirogazac Shields APRN Primary Care Provider [phone] Encounter Details Date Type Department Care Team (Late st Contact Info) Description 07/03/2016 External Results Hematology [place] [address] Matthew Cervantes, DO [address] [place] [address] Social History Tobacco Use Types Packs/Day Years [...] AM EDT Appointment Hematology [place] [address] 05/12/2024 10:00 AM EDT Office Visit Hematology [place] [address] Markel Borjas MD [facility] [address] HEMATOLOGY [place] [address] 03/01/2025 4:15 PM EDT Office Visit Dermatology at [place] [address] [place] [phone] Marek Bonilla MD [address], [place] [address] documented as of this encounter Procedures Procedure Name Priority Date/Time Associated Diagnosis Comments BONE MARROW ASPIRATION PERFO RMED WITH BONE MARRROW BIOPSY Routine 06/28/2016 documented in this encounter Results * BONE MARROW ASPIRATION PREFORMED WITH BONE MARRROW BIOPSY (06/28/2016) Matthew Cervantes DO GENERAL SURGI DANIEL ORDERABLES documented in this encounter Visit Diagnoses Not on filedocumented in this encounter Care Teams Community Health Consultant Relationship Specialty Start Date End Date Deborah Quiroga APRN PCP - General Family Medicine 03/24/16 02/04/23 documented as of this encounter
--- OUTSIDE RECORDS SUMMARY | 2024-04-20 14:27 | XMS_ITS | Encounter Summary ---
[place] [address] Care Team Providers Care General Foundry Worker Name Role Phone Deborah Quiroga ANURAG Primary Care Provider [phone] Reason for Visit * Reason Onset Date Comments Medical Care Coordination 07/31/2016 Encounter Details Date Type Department Care Team (Late st Contact Info) Description 07/31/2016 Telephone Hematology [place] [address] Alexandrea Greenwood RN Medical Care Coordination Social [...] RN spoke with Aydee of the [facility] lab who states they can draw pt's cbc on 08/04/15, RN faxed lab req to [phone] at Aydee's request. RN instructed pt on Dr. Borjas's direction above. Pt verbalized understanding. documented in this encounter Plan of Treatment Upcoming Encounters Date Type Department Care Team (Late st Contact Info) Description 05/12/2024 9:00 AM EDT Appointment Hematology [place] [address] 05/12/2024 10:00 AM EDT Office Visit Hematology [place] [address] Markel Borjas MD [facility] [place] [address] 03/01/2025 4:15 PM EDT Office Visit Dermatology at [place] [address] [place] [address] Marek Bonilla MD [address], [place] [address] documented as of this encounter Visit Diagnoses Not on filedocumented in this encounter Care Teams General Foundry Worker Relationship Specialty Start Date End Date Deborah Quiroga, POLE SHAVER PCP - General Family Medicine 03/24/16 02/04/23 documented as of this encounter
--- OUTSIDE RECORDS SUMMARY | 2024-04-20 14:27 | XMS_ITS | Encounter Summary ---
Author Organization [facility] Address [facility] [place] [address] Care Team Providers Care Fisheries Management Biologist Name Role Phone Ashley Quirogan Cornelius ANURAG Primary Care Provider +1 [phone] Encounter Details Date Type Department Care Team (Latest Contact Info) Description 05/19/2016 11:20 AM EDT [place] [phone] Nonrheumatic aortic valve stenosis Social History Tobacco [...] AM EDT Appointment [place] [phone] 05/12/2024 10:00 AM EDT Office Visit [place] [address] Markel Borjas MD [facility] DR HEMATOLOGY AND ONCOLOGY [place], [place] [id number] 03/01/2025 4:15 PM EDT Office Visit Dermatology at [address] [address] Marek Bonilla MD [address], [place] [address] documented as of this encounter Procedures Procedure Name Priority Date/Time Associated Diagnosis Comments SCAN, PERIPHERAL BLOOD Routine 05/19/2016 11:32 AM EDT HEMOGRAM Routine 05/19/2016 11:32 AM EDT Nonrheumatic aortic valve stenosis DIFFERENTIAL, AUTOMATED Routine 05/19/2016 11:32 AM EDT Nonrheumatic aortic valve stenosis TYPE AND SCREEN, SDP (FUTURE SURGERY, [facility] SAME DAY PROGRAM ONLY) Routine 05/19/2016 11:32 [...] (05/19/2016 11:32 AM EDT) Plat estimate Normal [facility] RBC Morphology Normal [facility] Blood specimen (specimen) 05/19/2016 11:32 AM EDT 05/19/2016 11:41 AM EDT Narrative Resulting Agency Comment Spec In Lab Alirio Esparza MD HEMATOLOGY ORDERABL ES [facility] [place] [address] * (ABNORMAL) Differential, Automated (05/19/2016 11:32 AM EDT) Pathologist Iron Neutrophil % 25.9 % [facility] Neutrophil Absolute 0.42(Crit ical) 1.70 - 6.10 x10(3)/[facility] Comment: This result has been called to DR ALIRIO ESPARZA by Alivia Ibarra on 05 19 2016 at 1228, and has been read back. Lymph % 59.9 % [facility] Lymphocytes Abs 1.0 0.9 - 3.2 x10(3)/[facility] Monocyte % 13.0 % [facility] Monocyte Abs 0.2(L) 0.3 - 0.9 x10(3)/[facility] Eos % 0.6 % [facility] Eosinophils Abs 0.0 0.0 - 0.4 x10(3)/[facility] Basophil % 0.6 % [facility] Baso Absolute 0.0 0.0 - 0.1 x10(3)/[facility] Immature Gran % 0.00 % [facility] Comment: Immature granulocytes(IG's)percentage and absolute count will include metamyelocytes, myelocytes, and promyelocytes. Blood smears from CBCs yielding IG's will be scanned manually for concordance. If this scan disagrees with the automated IG or if promyelocytes are noted, a manual differential will be performed. Immature Gran Absolute 0.00 0.00 - 0.04 x10(3)/[facility] Blood specimen (specimen) 05/19/2016 11:32 AM EDT 05/19/2016 11:41 AM EDT Narrative Resulting Agency Comment Spec In Lab Alirio Esparza MD HEMATOLOGY ORDERABL ES [facility] [place] [address] * (ABNORMAL) Hemogram (05/19/2016 11:32 AM EDT) White Blood Cell 1.6(Criti gabrielle) 4.0 - 9.5 x10(3)/mc L [facility] Comment: This result has been called to DR ALIRIO ESPARZA by Alivia Ibarra on 05 19 2016 at 1228, and has been read back. Red Blood Cell 3.96(L) 4.00 - 5.21 x10(6)/mc L [facility] Hemoglobin 12.5 11.7 - 15.5 gm/dL [facility] Hematocrit 37.9 35.7 - 45.8 % [facility] Mean Cell Volume 95.7(H) 82.6 - 94.4 fL [facility] Mean Cell Hemoglobin 31.6 27.1 - 32.0 pg [facility] Mean Cell Hemoglobin Concentration 33.0 31.7 - 35.0 gm/dL [facility] Platelet 227 145 - 357 x10(3)/ L [facility] RDW Standard Deviation 40.5 37.0 - 46.0 [facility] RDW coefficient of variation 11.5 11.5 - 14.1 % [facility] Mean Platelet Volume 8.4 7.6 - 12.9 fL [facility] NRBC% auto 0.0 % [facility] NRBC Absolute 0.000 0.000 - 0.000 x10(3)/ L [facility] Blood specimen (specimen) 05/19/2016 11:32 AM EDT 05/19/2016 11:41 AM EDT Narrative Resulting Agency Comment Spec In Lab Alirio Esparza MD HEMATOLOGY ORDERABL ES [facility] [place] [address] * Antibody screen (05/19/2016 11:32 AM EDT) Ab Screen Interp Negative [facility] Expires at [id number] on: 07/03/2016 [facility] Comment: Corrected from 06/11/16 12:00 [Unknown] on 06/09/16 05:51 by Bethanie Tomlinson I.. Corrected from 07/03/16 12:00 [Unknown] on 05/21/16 06:00 by Shelia Barrera Blood specimen (specimen) 05/19/2016 11:32 AM EDT 05/19/2016 11:35 AM EDT Narrative Resulting Agency Comment Spec In Lab Alirio Esparza MD BLOOD BANK LAB ORDCornelius ALEJO [facility] [place] [address] * ABO/Rh Typing (05/19/2016 11:32 AM EDT) Pathologist [facility] ABORH Type B Pos [facility] Blood specimen (specimen) 05/19/2016 11:32 AM EDT 05/19/2016 11:35 AM EDT Narrative Resulting Agency Comment Spec In Lab Alirio Esparza MD BLOOD BANK LAB BETH ALEJO [facility] [place] [address] * Basic Metabolic Panel (non-fasting) (05/19/2016 11:32 AM EDT) [facility] Glucose 86 65 - 199 mg/dL [facility] Comment:Diabetes: >=200 mg/d L plus symptoms Blood Urea Nitrogen 13 8 - 18 mg/dL [facility] [...] mmol/L [facility] Carbon Dioxide 27 22 - 31 mmol/L [facility] Anion Gap 12 5 - 15 mmol/L [facility] Calcium 10.1 8.5 - 10.5 mg/dL [facility] Est Glomerular Filtration Rate 60 >=60 [facility] Comment: [...] the following links into your internet browser. [email or web address] Blood specimen (specimen) 05/19/2016 11:32 AM EDT 05/19/2016 11:41 AM EDT Narrative Resulting Agency Comment Spec In Lab Alirio Esparza MD CHEMISTRY ORDERABLE S [facility] [place] [address] documented in this encounter Visit Diagnoses Diagnosis Nonrheumatic aortic valve stenosis Aortic valve disorders documented in this encounter Care Teams Fisheries Management Biologist Relationship Specialty Start Date End Date Deborah Quiroga APRN PCP - General Family Medicine 03/24/16 02/04/23 documented as of this encounter
--- OUTSIDE RECORDS SUMMARY | 2024-04-20 14:27 | XMS_ITS | Encounter Summary ---
Author Organization [facility] Address [facility] [place] [address] Care Team Providers Care Workplace Trainer And Assessor Name Role Phone Deborah Quiroga ANURAG Primary Care Provider [phone] Encounter Details Date Type Department Care Team (Late st Contact Info) Description 07/22/2016 External Results Hematology [place] [phone] Alexandrea Greenwood RN Neutropenia, unspecified type Social [...] AM EDT Appointment Hematology [place] [phone] 05/12/2024 10:00 AM EDT Office Visit Hematology [place] [address] Markel Borjas MD [facility] [place] [address] 03/01/2025 4:15 PM EDT Office Visit Dermatology at [address] [address] Marek Bonilla MD [address], [place] [address] documented as of this encounter Procedures Procedure Name Priority Date/Time Associated Diagnosis Comments COPPER, SERUM Routine 07/20/2016 10:30 AM EST Neutropenia, unspecified type CMV PCR, QUANTITATIVE Routine 07/20/2016 10:30 AM EST Neutropenia, unspecified type MONONUCLEOSIS SCREEN (APD/JEANNINE/[facility]) Routine 07/20/2016 10:30 AM EST Neutropenia, unspecified type CBC (WITH DIFF) Routine 07/20/2016 10:30 AM EST Neutropenia, unspecified type documented in this encounter Results * Copper, serum (07/20/2016 10:30 AM EST) Copper (NOVEMBER) 1.09 0.75 - 1.45 EXTERNAL LAB Blood specimen (specimen) 07/20/2016 10:30 AM EST Markel Borjas MD LAB SEND OUT ORDER JODIE Performing Organization Address City/[facility]/ZIP Co de Phone Number EXTERNAL LAB * CMV PCR, Quantitative (07/20/2016 10:30 AM EST) CMV PCR,Quantitati ve undetected EXTERNAL LAB Blood specimen (specimen) 07/20/2016 10:30 AM EST Markel Borjas MD MOLECULAR ORDERABL ES Performing Organization Address City/[facility]/ZIP Co de Phone Number EXTERNAL LAB * [...] type documented in this encounter Care Teams Workplace Trainer And Assessor Relationship Specialty Start Date End Date Deborah Quiroga, MARKET RELATIONSHIP MANAGER PCP - General Family Medicine 03/24/16 02/04/23 documented as of this encounter
--- OUTSIDE RECORDS SUMMARY | 2024-04-20 14:27 | XMS_ITS | Encounter Summary ---
[place] [address] Care Team Providers Care Warp Starter Name Role Phone Jerel Sofia Garcia APRN Primary Care Provider [phone] Encounter Details Date Type Department Care Team (Late st Contact Info) Description 11/12/2014 8:10 AM EDT - 11/12/2014 11:59 PM EDT Hospital [place] [phone] CLINIC, DR ABE Burrell, Antelmo Porter MD [address] [place] [place] [address] Discharge Disposition: Home Social History Tobacco Use [...] AM EDT Appointment Hematology [place] [address] 05/12/2024 10:00 AM EDT Office Visit Hematology [place] [phone] Markel Borjas MD [facility] [address] [place] [address] 03/01/2025 4:15 PM EDT Office Visit Dermatology at [place] [address] [place] [address] Marek Bonilla MD [address], [place] [address] documented as of this encounter Procedures Procedure [...] mLs documented in this encounter Care Teams Warp Starter Relationship Specialty Start Date End Date Sofia Beltrán APRN [address] [place] [address] PCP - General 11/12/14 03/23/16 documented as of this encounter
--- OUTSIDE RECORDS SUMMARY | 2024-04-20 14:27 | XMS_ITS | Encounter Summary ---
Author Organization [facility] Address [facility] [place] [address] Care Team Providers Care Marketing Manager Name Role Phone Deborah Quiroga ANURAG Primary Care Provider [phone] Encounter Details Date Type Department Care Team (Late st Contact Info) Description 07/31/2016 Orders Only [place]ematology [place] [phone] Alexandrea Greenwood RN Neutropenia, unspecified type Social [...] AM EDT Appointment [place] [phone] 05/12/2024 10:00 AM EDT Office Visit [place]ematology [place] [phone] Markel Borjas MD [facility] HEMATOLOGY [place] [address] 03/01/2025 4:15 PM EDT Office Visit Dermatology at [address] [address] Marek Bonilla MD [address], [place] [address] documented as of this encounter Results * [...] documented in this encounter Care Teams Marketing Manager Relationship Specialty Start Date End Date Deborah Quiroga APRN PCP - General Family Medicine 03/24/16 02/04/23 documented as of this encounter
--- OUTSIDE RECORDS SUMMARY | 2024-04-20 14:27 | XMS_ITS | Encounter Summary ---
Author Organization [facility] [place] [address] Care Team Providers Care Lens Examiner Name Role Phone Deborah Quiroga ANURAG Primary Care Provider [phone] Encounter Details Date Type Department Care Team (Late st Contact Info) Description 05/22/2016 Orders Only Cardiology at [address] [phone] Chele Randolph PA [facility] DR CARDIOLOGY DEPT. [place], [place] [phone] Aortic valve stenosis, unspecified etiology Social History [...] AM EDT Appointment Hematology [place] [address] 05/12/2024 10:00 AM EDT Office Visit Hematology [place] [address] Markel Borjas MD [facility] [address] HEMATOLOGY AND ONCOLOGY [place], [place] [address] 03/01/2025 4:15 PM EDT Office Visit Dermatology at [place] [address] [facility] [address] [place] [phone] Marek Bonilla MD [address], [place] [address] documented as of this encounter Procedures Procedure Name Priority Date/Time Associated Diagnosis Comments CARDIAC CATHETERIZATION Routine 06/03/20 16 9:13 AM EDT Aortic valve stenosis, unspecified etiology documented in this encounter Results * CARDIAC CATHETERIZATION (06/03/2016 9:13 AM EDT) Anatomical Region Laterality Modality Other Narrative 06/03/2016 10:13 AM EDT ?[facility] ? Cardiac Catheterization/Intervention Report ? Patient Name: Purnima Thcaker. ? Procedure Date: 06/03/2016 ? A #: [id number] ? Primary Physician: Nitesh Escobedo ? Case #: [id number] ? File Name: [id number] ? Catheterization Order Number: [id number] ? [facility] ? Final Report [place], [place] ? Patient Name: ? Purnima M. Kirstie ? ID#: ?[id number] ? : ?1955 ? Procedure Date: ? [...] no symptom, no angina (w/i 14 days). [place] ?Cardiovascular Society angina class was 0. This [...] ? Procedure Nitesh Marroquin, MD - 09/21/2016 [facility] Cardiac Catheterization/Intervention Report Patient Name: Purnima Thacker Procedure Date: 06/03/2016 A #: [id number] Primary Physician: Nitesh Escobedo Case #: [id number] File Name: [id number] Catheterization Order Number: [id number] [facility] FinalReport [place], [place] Patient Name: Purnima Thacker ID#:[id number] :1955 Procedure Date: June 03, 2016 Case [...] with: no symptom, no angina (w/i 14 days).[place] Cardiovascular Society angina class was 0. This [...] etiology documented in this encounter Care Teams Lens Examiner Relationship Specialty Start Date End Date Deborah Quiroga, FULLING MILL OPERATOR PCP - General Family Medicine 03/24/16 02/04/23 documented as of this encounter
--- OUTSIDE RECORDS SUMMARY | 2024-04-20 14:27 | XMS_ITS | Encounter Summary ---
Author Organization [facility] Address [facility] [place] [address] Care Team Providers Care Order Administrator Name Role Phone Deborah Quiroga ANURAG Primary Care Provider [phone] [phone] Encounter Details Date Type Department Care Team (Late st Contact Info) Description 07/31/2016 External Results Hematology [place] [phone] Alexandrea Greenwood RN Neutropenia, unspecified type Social [...] AM EDT Appointment Hematology [place] [phone] 05/12/2024 10:00 AM EDT Office Visit Hematology [place] [address] Markel Borjas MD [facility] [place] [address] 03/01/2025 4:15 PM EDT Office Visit Dermatology at [address] [address] Marek Bonilla MD [address], [place] [address] documented as of this encounter Procedures Procedure [...] type documented in this encounter Care Teams Order Administrator Relationship Specialty Start Date End Date Deborah Quiroga APRN PCP - General Family Medicine 03/24/16 02/04/23 documented as of this encounter
--- OUTSIDE RECORDS SUMMARY | 2024-04-20 14:27 | XMS_ITS | Encounter Summary ---
Author Organization [facility] [place] [address] Care Team Providers Care Spar Finisher Name Role Phone Junaid, Deborah Shields APRN Primary Care Provider [phone] Encounter Details Date Type Department Care Team (Late st Contact Info) Description 05/19/2016 10:00 AM EDT Office [place] [phone] Alirio Esparza MD Nonrheumatic aortic valve stenosis [...] AM EDT Appointment [place] [address] 05/12/2024 10:00 AM EDT Office Visit [place] [address] Markel Borjas MD [facility] [address] [place] [address] 03/01/2025 4:15 PM EDT Office Visit Dermatology at [place] [address] [facility] [address] [place] [phone] Marek Bonilla MD [address] [facility], [place] [address] documented as of this encounter Results * [...] (Bezet) 448 ms MUSE SYSTEM Calculated P [place] 37 degrees MUSE SYSTEM Calculated R [place] 31 degrees MUSE SYSTEM Calculated T [place] 25 degrees MUSE SYSTEM INTERPRETATION Normal sinus rhythm Normal ECG No previous ECGs available Confirmed by MD Becca, Deangelo ([id number]) on 05/19/2016 5:23:33 PM MUSE SYSTEM 05/19/2016 11:4 3 AM EDT 05/19/2016 5:23 PM EDT Alirio Esparza MD ECG ORDERABLES MUSE SYSTEM * Basic Metabolic Panel (non-fasting) (05/19/2016 11:32 AM EDT) Glucose 86 65 - 199 mg/dL [place] [...] LABORATORY Est Glomerular Filtration Rate 60 >=60 [facility] [...] the following links into your internet browser. [email or web address] Blood specimen (specimen) 05/19/2016 11:32 AM EDT 05/19/2016 11:41 AM EDT Narrative Resulting Agency Comment Spec In Lab Alirio Esparza MD CHEMISTRY ORDERABLE S [facility] [place] [address] documented in this encounter Visit Diagnoses Diagnosis Nonrheumatic aortic valve stenosis Aortic valve disorders Nonrheumatic aortic valve stenosis Aortic valve disorders documented in this encounter Care Teams Spar Finisher Relationship Specialty Start Date End Date Deborah Quiroga, [employer]ILDR[employer] DIRECTOR PCP - General Family Medicine 03/24/16 02/04/23 documented as of this encounter
--- OUTSIDE RECORDS SUMMARY | 2024-04-20 14:27 | XMS_ITS | Encounter Summary ---
Author Organization [facility] Address [facility] [place] [address] Care Team Providers Care Neighborhood Conservation Officer Name Role Phone EitanMagnusDanni ANURAG Primary Care Provider Encounter Details Date Type Department Care Team (Latest Contact Info) Description 01/23/2014 7:45 AM EDT - 01/23/2014 5:50 PM EDT Hospital En[place] [address] Alan Jacobson MD [facility] [place] [address] Cardiomyopathy; SOB (shortness of breath) Discharge Disposition: [...] by your doctor, do not take any [id number] medicines or herbal preparations without first discussing this with your doctor or pharmacist. There is the possibility of side effect and interactions when these are combined. Follow up Care Who to Call with Questions or Problems If there are any questions or problems that you think might be related to your cardiac cath or angioplasty, contact the manager mall yardage control clerk by calling [facility] at . documented in this encounter Medications [...] AM EDT Appointment Hematology [place] [address] 05/12/2024 10:00 AM EDT Office Visit Hematology [place] [phone] Markel Borjas MD [facility] [address] [place] [address] 03/01/2025 4:15 PM EDT Office Visit Dermatology at [place] [address] [facility] [place] [address] Marek Bonilla MD [address], [place] [address] documented as of this encounter Procedures Procedure Name Priority Date/Time Associated Diagnosis Comments ECHOCARDIOGRAM TRANSTHORACIC Routine 01/23/2014 3:17 PM EDT SOB (shortness of breath) documented in this encounter Results * Echocardiogram Transthoracic(Leb) (01/23/2014 3:17 PM EDT) [facility] EF 50 HEART[facility] SYSTEM Anatomical Region Laterality Modality Other 01/23/2014 Narrative 01/23/2014 4:35 PM EDT Procedure: ? Transthoracic Echocardiogram Patient: ? ANDREW ONESIMO M ?(Age): 1955(58) Med Rec#: ?[id number] ? Sex: ?F ? Site Loc: ?[facility] ? Ht / Wt: ??158(cm)/93(kg) Pt. Loc: ? Adult Floor ?BSA: ?2.02 Study Date: ?01/23/2014 ? Pt. Type: Inpatient Tape: ? Referring: Lee Kincaid ([id number]) Referring: ANNALISA Boiler Operator: Miguel Beverly Diagnosis:CPT Code(s): ??Echo Full (85746), ??Spectral Doppler (10168), Color Doppler (75274), Indication(s): ??Aortic stenosis Rhythm: Sinus HR ?BP [...] ? Mid-Inferior ?Hypokinetic ? Mid-Inferoseptal ?Hypokinetic ? [place]-Septal ? Hypokinetic ? [place]-Anterior ? Hypokinetic ? [place]-Lateral ?Hypokinetic ? [place]-Inferior ? Hypokinetic ? [place]-Tip ?Hypokinetic ? Chambers ?Value ?Units (Range) ? [...] Images reviewed and interpretation verified [facility] Cardiac Ultrasound Laboratory Procedure Note Lee Kincaid MD - 01/23/2014 Procedure: Transthoracic Echocardiogram Patient: ANDREW Mejias (Age): 1955(58) Med Rec#: [id number] Sex: F Site Loc: [facility] Ht / Wt: 158(cm)/93(kg) Pt. Loc: Adult Floor BSA: 2.02 Study Date: 01/23/2014 Pt. Type: Inpatient Tape: Referring: Lee Kincaid ([id number]) Referring: ANNALISA Boiler Operator: Miguel Beverly Diagnosis:CPT Code(s): Echo Full (07007), Spectral Doppler (13468), Color Doppler (26743), Indication(s): Aortic stenosis Rhythm: Sinus HR BP [...] Hypokinetic Mid-Posterolateral Hypokinetic Mid-Inferior Hypokinetic Mid-Inferoseptal Hypokinetic [place]-Septal Hypokinetic [place]-Anterior Hypokinetic [place]-Lateral Hypokinetic [place]-Inferior Hypokinetic [place]-Tip Hypokinetic Chambers Value Units (Range) IVSd 2D [...] Images reviewed and interpretation verified [facility] Cardiac Ultrasound Laboratory Lee Kincaid MD ECHO [...] RN) documented in this encounter Care Teams Neighborhood Conservation Officer Relationship Specialty Start Date End Date Danni Laird APRN [address] [place] [address] PCP - General 01/23/14 11/11/14 documented as of this encounter
--- OUTSIDE RECORDS SUMMARY | 2024-04-20 14:27 | XMS_ITS | Encounter Summary ---
Author Organization [facility] Address [facility] [place] [address] Care Team Providers Care Recreation Programmer Name Role Phone Deborah Quiroga APRN Primary Care Provider Encounter Details Date Type Department Care Team (Late st Contact Info) Description 07/17/2016 9:00 AM EST Office Visit Hematology [place] [address] Markel Borjas MD [facility] [address] HEMATOLOGY [place] [address] Neutropenia, unspecified type Social History Tobacco Use [...] 07/17/2016 9:00 AM EST Hematology Outpatient Clinic [facility] Hematology Outpatient Consult Note CC: [id number] [...] TOUCH PREP, CLOT SECTION, CORE ??BIOPSY); [OSR# [id number], COLLECTED 06/23/2016, 19 SLIDES]: ?1. ??Normocellular marrow [...] a clonal lymphoproliferative or myeloproliferative disorder (OSR# [id number]) Chromosome analysis on the marrow aspirate revealed [...] leukopenia. Will consi kanwal talking to pt's design drafter about a switch from ACEI to ARB [...] the original note were not included. N [facility] HEM ONC [facility] [address] Date: 07/17/16 Patient Name: Purnima Thacker : 1955 Diagnosis: neutropenia Referral to [site]: [facility] Orders: ? Labs: Fax results to . [x] Draw CBC, copper level, CMV PCR, mononucleosis screen on 07/20 Repeat CBC on 07/30 (to measure response of WBC after Neulasta) ? Growth factor: [x] Neulasta 6mg SQ injection x 1 on 07/20/2016 Signature: Markel Borjas MD beeper # [id number] documented in this encounter Plan of Treatment Upcoming Encounters Date Type Department Care Team (Late st Contact Info) Description 05/12/2024 9:00 AM EDT Appointment Hematology [place] [address] 05/12/2024 10:00 AM EDT Office Visit Hematology [place] [address] Markel Borjas MD [facility] DR HEMATOLOGY [place] [address] 03/01/2025 4:15 PM EDT Office Visit Dermatology at [address] [place] [address] Marek Bonilla MD [address], [address] DERMATOLOGY [place], [place] [id number] documented as of this encounter Results * (ABNORMAL) CBC (with Diff) (07/31/2016 9:40 AM EST) Pathologist [facility] White Blood Cell 2.23(EXTER NAL/ABN) 4.4 - 10.8 EXTERNAL LAB Hemoglobin 12.6 12.0 - 16.0 EXTERNAL LAB Hematocrit 37.7 36.0 - 46.0 EXTERNAL LAB Platelet 167 130 - 400 EXTERNAL LAB Neutrophil Absolute (ANC) - Automated 1.17(EXTER NAL/ABN) 1.2 - 6.7 EXTERNAL LAB Blood specimen (specimen) 07/31/2016 9:40 AM EST Markel Borjas MD HEMATOLOGY ORDERAB LES Performing Organization Address City/[facility]/ZIP Co de Phone Number EXTERNAL LAB * Mononucleosis Screen (07/20/2016 10:30 AM EST) [facility] Mononucleosis Screen neg neg - neg EXTERNAL LAB Blood specimen (specimen) 07/20/2016 10:30 AM EST Markel Borjas MD IMMUNOLOGY ORDERAB LES Performing Organization Address City/[facility]/ZIP Co de Phone Number EXTERNAL LAB * Copper, serum (07/20/2016 10:30 AM EST) Pathologist [facility] Copper (NOVEMBER) 1.09 0.75 - 1.45 EXTERNAL LAB Blood specimen (specimen) 07/20/2016 10:30 AM EST Markel Borjas MD LAB SEND OUT ORDER JODIE Performing Organization Address City/[facility]/ZIP Co de Phone Number EXTERNAL LAB * CMV PCR, Quantitative (07/20/2016 10:30 AM EST) [facility] CMV PCR,Quantitati ve undetected EXTERNAL LAB Blood [...] MD HEMATOLOGY ORDERAB LES Performing Organization Address City/[facility] Co de Phone Number EXTERNAL LAB documented in this encounter Visit Diagnoses Diagnosis Neutropenia, unspecified type documented in this encounter Care Teams Recreation Programmer Relationship Specialty Start Date End Date Deborah Quiroga APRN PCP - General Family Medicine 03/24/16 02/04/23 documented as of this encounter
--- OUTSIDE RECORDS SUMMARY | 2024-04-20 14:27 | XMS_ITS | Encounter Summary ---
Author Organization [facility] Address [facility] [place] [address] Care Team Providers Care Private Branch Exchange Service Advisor Name Role Phone Deborah Quiroga ANURAG Primary Care Provider [phone] Encounter Details Date Type Department Care Team (Late st Contact Info) Description 08/04/2016 External Results Hematology [place] [address] Alexandrea Greenwood RN Neutropenia, unspecified type Social [...] AM EDT Appointment Hematology [place] [address] 05/12/2024 10:00 AM EDT Office Visit Hematology [place] [address] Markel Borjas MD [facility] HEMATOLOGY [place] [address] 03/01/2025 4:15 PM EDT Office Visit Dermatology at [address] [address] Marek Bonilla MD [address], [place] [address] documented as of this encounter Procedures Procedure [...] type documented in this encounter Care Teams Private Branch Exchange Service Advisor Relationship Specialty Start Date End Date Deborah Quiroga APRN PCP - General Family Medicine 03/24/16 02/04/23 documented as of this encounter
--- OUTSIDE RECORDS SUMMARY | 2024-04-20 14:27 | XMS_ITS | Encounter Summary ---
Author Organization [facility] Address [facility] [place] [address] Care Team Providers Care Supervisor Sterile Processing Name Role Phone Ashley Quirogan Cornelius ANURAG Primary Care Provider [phone] Encounter Details Date Type Department Care Team (Late st Contact Info) Description 07/13/2016 External Results [place] [address] Provider, Scanning Social History Tobacco Use Types [...] AM EDT Appointment H[place]ology [place] [address] 05/12/2024 10:00 AM EDT Office Visit [place] [address] Markel Borjas MD [facility] [address] [place] [address] 03/01/2025 4:15 PM EDT Office Visit Dermatology at [place] [address] [facility] [place] [address] Marek Bonilla MD [address], [place] [address] documented as of this encounter Procedures Procedure Name Priority Date/Time Associated Diagnosis Comments SURGICAL PATHOLOGY SCAN Routine 07/13/2016 documented in this encounter Results * Scan Doc: Surgical Pathology (07/13/2016) Nitesh Pina Jr., MD MEDIA MGR SCAN EXT O RDR/RSLT documented in this encounter Visit Diagnoses Not on filedocumented in this encounter Care Teams Supervisor Sterile Processing Relationship Specialty Start Date End Date Deborah Quiroga APRN PCP - General Family Medicine 03/24/16 02/04/23 documented as of this encounter
--- OUTSIDE RECORDS SUMMARY | 2024-04-20 14:27 | XMS_ITS | Encounter Summary ---
Author Organization [facility] [place] [address] Care Team Providers Care Mine Car Dispatcher Name Role Phone Eitan Danni ANURAG Primary Care Provider Encounter Details Date Type Department Care Team (Late st Contact Info) Description 01/23/2014 9:25 AM EDT - 01/23/2014 10:25 AM [place] [address] Alan Jacobson MD [facility] [place] [address] CARDIAC CATHETERIZATION Social History Tobacco Use Types [...] by your doctor, do not take any kjbu-kbj-ehedxhm medicines or herbal preparations without first discussing this with your doctor or pharmacist. There is the possibility of side effect and interactions when these are combined. Follow up Care Who to Call with Questions or Problems If there are any questions or problems that you think might be related to your cardiac cath or angioplasty, contact the leaf tinner geothermal operations manager by calling [facility] at [...] AM EDT Appointment [place] [address] 05/12/2024 10:00 AM EDT Office Visit [place] [address] Markel Borjas MD [facility] DR H[place] [address] 03/01/2025 4:15 PM EDT Office Visit Dermatology at [place] [address] [facility] [place] [address] Marek Bonilla MD [address], [place] [address] documented as of this encounter Procedures Procedure Name Priority Date/Time Associated Diagnosis Comments ECHOCARDIOGRAM TRANSTHORACIC Routine 01/23/2014 3:17 PM EDT SOB (shortness of breath) documented in this encounter Results * Echocardiogram Transthoracic(Leb) (01/23/2014 3:17 PM EDT) [facility] EF 50 HEARTSongwhale SYSTEM Anatomical Region Laterality Modality Other 01/23/2014 Narrative 01/23/2014 4:35 PM EDT Procedure: ? Transthoracic Echocardiogram Patient: ? ANDREW ONESIMO M ?(Age): 1955(58) Med Rec#: ?[id number] ? Sex: ?F ? Site Loc: ?[facility] [place] ? Ht / Wt: ??158(cm)/93(kg) Pt. Loc: ? Adult Floor ?BSA: ?2.02 Study Date: ?01/23/2014 ? Pt. Type: Inpatient Tape: ? Referring: Lee Kincaid ([id number]) Referring: ANNALISA Paraeducator: Miguel Beverly Diagnosis:CPT Code(s): ??Echo Full (43861), ??Spectral Doppler (63277), Color Doppler (42856), Indication(s): ??Aortic stenosis Rhythm: Sinus HR ?BP [...] ? Mid-Inferior ?Hypokinetic ? Mid-Inferoseptal ?Hypokinetic ? Copeland-Septal ? Hypokinetic ? Copeland-Anterior ? Hypokinetic ? Copeland-Lateral ?Hypokinetic ? Copeland-Inferior ? Hypokinetic ? Copeland-Tip ?Hypokinetic ? Chambers ?Value ?Units (Range) ? [...] Patient: ANDREW Mejias (Age): 1955(58) Med Rec#: [id number] Sex: F Site Loc: [facility] [place] Ht / Wt: 158(cm)/93(kg) Pt. Loc: Adult Floor BSA: 2.02 Study Date: 01/23/2014 Pt. Type: Inpatient Tape: Referring: Lee Kincaid ([id number]) Referring: ANNALISA Paraeducator: Miguel Beverly Diagnosis:CPT Code(s): Echo Full (01334), Spectral Doppler (97324), Color Doppler (80720), Indication(s): Aortic stenosis Rhythm: Sinus HR BP [...] Hypokinetic Mid-Posterolateral Hypokinetic Mid-Inferior Hypokinetic Mid-Inferoseptal Hypokinetic Copeland-Septal Hypokinetic Copeland-Anterior Hypokinetic Copeland-Lateral Hypokinetic Copeland-Inferior Hypokinetic Copeland-Tip Hypokinetic Chambers Value Units (Range) IVSd 2D [...] RN) documented in this encounter Care Teams Mine Car Dispatcher Relationship Specialty Start Date End Date Danni Laird APRN [address] [place] [address] PCP - General 01/23/14 11/11/14 documented as of this encounter
--- OUTSIDE RECORDS SUMMARY | 2024-04-20 14:27 | XMS_ITS | Encounter Summary ---
[place] [address] Care Team Providers Care Worship Director Name Role Phone Ashley Quirogan Cornelius ANURAG Primary Care Provider [phone] Encounter Details Date Type Department Care Team (Late st Contact Info) Description 03/24/2016 Notes [place] [address] Alfa Lua Social History Tobacco Use Types [...] assessments completed: Wadsworth Score: 6/6 IADL: 7/7 Theatrical Dresser Strength Trials: 18.4, 15.0, 16.8 (right hand dominant) 5 meter walk test in seconds x3: 4.98, 4.88, 4.45 KCCQol: 98% Alfa Lua documented in this encounter Plan of Treatment Upcoming Encounters Date Type Department Care Team (Late st Contact Info) Description 05/12/2024 9:00 AM EDT Appointment H[place]ology [place] [address] 05/12/2024 10:00 AM EDT Office Visit [place] [address] Markel Borjas MD [facility] [address] HEMATOLOGY [place] [address] 03/01/2025 4:15 PM EDT Office Visit Dermatology at [place] [address] [facility] [place] [address] Marek Bonilla MD [address], [place] [address] documented as of this encounter Visit Diagnoses Not on filedocumented in this encounter Care Teams Worship Director Relationship Specialty Start Date End Date Deborah Quiroga APRN PCP - General Family Medicine 03/24/16 02/04/23 documented as of this encounter
--- OUTSIDE RECORDS SUMMARY | 2024-04-20 14:27 | XMS_ITS | Encounter Summary ---
Author Organization [facility] [place] [address] Care Team Providers Care Social Science Manager Name Role Phone Deborah Quiroga APRN Primary Care Provider [phone] Encounter Details Date Type Department Care Team (Late st Contact Info) Description 08/18/2016 4:20 PM EST Clinical [place] [address] Social History Tobacco Use Types Packs/Day Years [...] AM EDT Appointment [place] [address] 05/12/2024 10:00 AM EDT Office Visit [place] [address] Markel Borjas MD [facility] [address] [place] [address] 03/01/2025 4:15 PM EDT Office Visit Dermatology at [place] [address] [facility] [place] [address] Marek Bonilla MD [address] [facility], [place] [address] documented as of this encounter Visit Diagnoses Not on filedocumented in this encounter Care Teams Social Science Manager Relationship Specialty Start Date End Date Deborah Quiroga APRN PCP - General Family Medicine 03/24/16 02/04/23 documented as of this encounter
--- OUTSIDE RECORDS SUMMARY | 2024-04-20 14:28 | XMS_ITS | Encounter Summary ---
[place] [address] Care Team Providers Care Farrowing Manager Name Role Phone Mitchell Wilkes MD Primary Care Provider [phone] Reason for Visit * Reason Onset Date Comments Other 01/18/2014 Encounter Details Date Type Department Care Team (Late st Contact Info) Description 01/18/2014 Telephone Cardiology at [address] [address] Jesusita Garces Other Social History [...] AM EDT Appointment Hematology [place] [address] 05/12/2024 10:00 AM EDT Office Visit Hematology [place] [address] Markel Borjas MD [facility] [address] [place] [address] 03/01/2025 4:15 PM EDT Office Visit Dermatology at [place] [address] [place] [address] Marek Bonilla MD [address], [place] [address] documented as of this encounter Visit Diagnoses Not on filedocumented in this encounter Care Teams Farrowing Manager Relationship Specialty Start Date End Date Mitchell Wilkes MD [facility] PCP - General 06/24/10 01/19/14 documented as of this encounter
--- OUTSIDE RECORDS SUMMARY | 2024-04-20 14:28 | XMS_ITS | Encounter Summary ---
Author Organization [facility] [place] [address] Care Team Providers Care Gas Maker Helper Name Role Phone Mitchell Wilkes MD Primary Care Provider [phone] Encounter Details Date Type Department Care Team (Late st Contact Info) Description 01/19/2014 Orders Only Cardiology at [address] [address] Chele Randolph PA [facility] [place] [address] Cardiomyopathy (Primary Dx) Social History Tobacco Use [...] AM EDT Appointment [place] [address] 05/12/2024 10:00 AM EDT Office Visit [place] [address] Markel Borjas MD [facility] [address] HEMATOLOGY [place] [address] 03/01/2025 4:15 PM EDT Office Visit Dermatology at [place] [address] [place] [address] Marek Bonilla MD [address], [place] [address] documented as of this encounter Procedures Procedure [...] cardiomyopathies documented in this encounter Care Teams Gas Maker Helper Relationship Specialty Start Date End Date Mitchell Wilkes MD [facility] PCP - General 06/24/10 01/19/14 documented as of this encounter
[2024-04-20 15:09] VITALS: BP 97/53; PULSE 75
--- OUTSIDE RECORDS SUMMARY | 2024-04-25 16:13 | XMS_ITS | Referral Summary ---
Author Organization [facility] Address [address] [place] [address] Care Team Providers Care Aircraft Fueler Name Role Phone Ashley Chavez Primary Care Provider [phone] Encounters Date Type Department Care Team Description 03/22/2024 Lab Requisition [facility] Pathology & Laboratory [address] [address] Consuelo Guerrero, DO Diaphragmatic hernia without obstruction or gangrene; Anemia, unspecified 03/21/2024 Lab Requisition [facility] Pathology & Laboratory [address] [address] Consuelo Guerrero DO Encounter for other general examination 03/21/2024 Lab Requisition [facility] Pathology & Laboratory [address] [address] Outr Resulting Lab, Provider from Last 3 [...] Negative 03/21/2024 22:31 EDT [facility] BLOOD BANK Blood VENOUS BLOOD / Unknown 03/21/2024 13:00 EDT 03/21/2024 21:51 EDT Consuelo Guerrero DO BLOOD BANK TESTS Performing Organization Address [facility] Co de Phone Number [facility] BLOOD BANK [address] [place] [address] * HAPTOGLOBIN (03/21/2024 13:00 EDT) Haptoglobin 183 32 - 197 mg/dL 03/22/2024 10:25 EDT [facility]ORY SERVICES Blood VENOUS BLOOD / Unknown 03/21/2024 13:00 EDT 03/21/2024 21:50 EDT Provider Outr Resulting Lab CHEMISTRY & BLOOD GAS ORDERABLES Performing Organization Address [facility] Co de Phone Number [facility] [address] [place] [address] * SURGICAL PATHOLOGY (03/21/2024 11:35 EDT) Note to Patient The following pathology results have been interpreted by your pathologist and may be available to you before your health provider has had the opportunity to review them. Please allow time for your provider to receive these results and explore management options, if applicable. 03/24/2024 10:36 EDT [facility] Final Diagnosis A. JEJUNUM, [...] - Deeper sections x3 examined. 03/24/2024 10:36 [facility] LABORATORY SERVICES Attestation There was significant resident/fellow involvement in the diagnostic evaluation of this case. By the signature below, the attending physician certifies that they have personally conducted a gross and/or microscopic examination of the described specimens and rendered or confirmed the above diagnosis. 03/24/2024 10:36 [facility] LABORATORY SERVICES at 1036 Clinical History Anemia, hiatal hernia, 38 cm aguayo diverticulosis 03/24/2024 10:36 [facility]OR[facility] SERVICES Gross Description A. Received in [...] 9:36 03/24/2024 10:36 EDT [facility] Resident/Estuardo w: Luis Felipe Bragg DO 03/24/2024 10:36 EDT [facility] SERVICES Performing Lab [facility] 10:36 EDT [facility] SERVICES Scanned Images 03/24/2024 10:36 EDT [facility] Tissue POLYP OF COLON [...] 8:19 EDT Consuelo Guerrero DO PATHOLOGY ORDERABLES [facility] [address] [place] [address] from Last 3 Months Care Teams Aircraft Fueler Relationship Specialty Start Date End Date Ashley Chavez ARNP [address] [place] [address] PCP - General 07/11/10
--- OUTSIDE RECORDS SUMMARY | 2024-04-25 16:13 | XMS_ITS | Encounter Summary ---
Author Organization [facility] Address [address] [place] [address] Care Team Providers Care Social Services Counselor Name Role Phone Ashley Chavez Primary Care Provider [phone] Encounter Details Date Type Department Care Team (Late st Contact Info) Description 03/22/2024 Lab Requisition [facility] Pathology & Laboratory Medicine - [address] [address] Consuelo Guererro, DO [address] [address] [place], [place] [address] Diaphragmatic hernia without obstruction or gangrene; Anemia, [...] explore management options, if applicable. 03/24/2024 10:36 [facility] SERVICES Final Diagnosis A. JEJUNUM, [...] - Deeper sections x3 examined. 03/24/2024 10:36 [facility] Attestation There was significant resident/fellow involvement in the diagnostic evaluation of this case. By the signature below, the attending physician certifies that they have personally conducted a gross and/or microscopic examination of the described specimens and rendered or confirmed the above diagnosis. 03/24/2024 10:36 [facility] LAB[facility]ORY SERVICES at 1036 Clinical History Anemia, hiatal hernia, 38 cm aguayo diverticulosis 03/24/2024 10:36 [facility] SERVICES Gross Description A. Received [...] Luis Torres 03/22/2024 9:36 03/24/2024 10:36 EDT [facility] LABORATORY SERVICES Resident/Estuardo w: Luis Felipe Bragg DO 03/24/2024 10:36 T [facility] LABORATORY SERVICES Performing Lab [facility] LAB 10:36 T [facility] SERVICES Scanned Images 03/24/2024 10:36 T [facility]OR[facility]ORY SERVICES Tissue POLYP OF [...] 8:19 EDT Consuelo Guerrero DO PATHOLOGY ORDERABLES [facility] SERVICES [address] [place] [address] documented in this encounter Visit Diagnoses Diagnosis Diaphragmatic hernia without obstruction or gangrene Diaphragmatic hernia without mention of obstruction or gangrene Anemia, unspecified documented in this encounter Care Teams Social Services Counselor Relationship Specialty Start Date End Date Ashley Chavez ARNP [address] [place] [address] PCP - General 07/11/10 documented as of this encounter
--- OUTSIDE RECORDS SUMMARY | 2024-04-25 16:13 | XMS_ITS | Encounter Summary ---
Author Organization [facility] Address [address] [place] [address] Care Team Providers Care Brass And Wind Instrument Repairer Name Role Phone Ashley Chavez Primary Care Provider [phone] Encounter Details Date Type Department Care Team (Late st Contact Info) Description 03/21/2024 Lab Requisition [facility] Pathology & Laboratory Medicine - [address] [address] Outr Resulting Lab, Provider Social History Tobacco [...] 32 - 197 mg/dL 03/22/2024 10:25 EDT [facility]ORY SERVICES Blood VENOUS BLOOD / Unknown 03/21/2024 13:00 EDT 03/21/2024 21:50 EDT Provider Outr Resulting Lab CHEMISTRY & BLOOD GAS ORDERABLES [facility]ORY SERVICES [address] [place] [address] documented in this encounter Visit Diagnoses Not on filedocumented in this encounter Care Teams Brass And Wind Instrument Repairer Relationship Specialty Start Date End Date Ashley Chavez ARNP [address] [place] [address] PCP - General 07/11/10 documented as of this encounter
--- OUTSIDE RECORDS SUMMARY | 2024-04-25 16:13 | XMS_ITS | Clinical Summary ---
Author Organization [facility] Address [address] [place] [address] Care Team Providers Care Customer Service Engineer Name Role Phone Ashley Chavez Primary Care Provider [phone] Encounters Date Type Department Care Team Description 03/22/2024 Lab Requisition [facility] Pathology & Laboratory [address] [address] Consuelo Guerrero, DO Diaphragmatic hernia without obstruction or gangrene; Anemia, unspecified 03/21/2024 Lab Requisition [facility] Pathology & Laboratory [address] [address] Consuelo Guerrero, DO Encounter for other general examination 03/21/2024 Lab Requisition [facility] Pathology & Laboratory [address] [address] Outr Resulting Lab, Provider from Last 3 [...] 2015 Fall Risk Screening 2020 COVID-19 Vaccine ( season) 2024 Procedures Procedure Name Priority Date/Time Associated Diagnosis Comments DIRECT ANTIGLOBULIN TEST Today 03/21/2024 13:00 EDT Encounter for other general examination HAPTOGLOBIN Routine 03/21/2024 13:00 EDT SURGICAL PATHOLOGY Today 03/21/2024 11 :35 EDT Diaphragmatic hernia without obstruction or gangrene Anemia, unspecified from Last 3 Months Results * DIRECT ANTIGLOBULIN TEST (03/21/2024 13:00 EDT) LORY Negative 03/21/2024 22:31 EDT [facility] BLOOD [facility]ANK Blood VENOUS BLOOD / Unknown 03/21/2024 13:00 EDT 03/21/2024 21:51 EDT Consuelo Guerrero DO BLOOD BANK TESTS Performing Organization Address [facility] Co de Phone Number [facility] BLOOD [facility] [address] [place] [address] * HAPTOGLOBIN (03/21/2024 13:00 EDT) Haptoglobin 183 32 - 197 mg/dL 03/22/2024 10:25 EDT [facility] Blood VENOUS BLOOD / Unknown 03/21/2024 13:00 EDT 03/21/2024 21:50 EDT Provider Outr Resulting Lab CHEMISTRY & BLOOD GAS ORDERABLES Performing Organization Address [facility]/ZIP Co de Phone Number [facility] [address] [place], [place] [address] * SURGICAL PATHOLOGY (03/21/2024 11:35 EDT) Note to Patient The following pathology results have been interpreted by your pathologist and may be available to you before your health provider has had the opportunity to review them. Please allow time for your provider to receive these results and explore management options, if applicable. 03/24/2024 10:36 EDT [facility] Final Diagnosis A. JEJUNUM, [...] Luis Torres 03/22/2024 9:36 03/24/2024 10:36 EDT [facility] Resident/Estuardo w: Luis Felipe Bragg DO 03/24/2024 10:36 EDT [facility] Performing Lab [facility] 10:36 EDT [facility] Scanned Images 03/24/2024 10:36 EDT [facility] Tissue POLYP OF COLON / [...] 8:19 EDT Consuelo Guerrero DO PATHOLOGY ORDERABLES [facility] [address] [place] [address] from Last 3 Months Care Teams Customer Service Engineer Relationship Specialty Start Date End Date Ashley Chavez ARNP [address] [place] [address] PCP - General 07/11/10
--- OUTSIDE RECORDS SUMMARY | 2024-04-25 16:13 | XMS_ITS | Encounter Summary ---
Author Organization [facility] Address [address] [place] [address] Care Team Providers Care Dust Sampler Name Role Phone Ashley Chavez Primary Care Provider [phone] Encounter Details Date Type Department Care Team (Late st Contact Info) Description 10/30/2022 Lab Requisition [facility] Pathology & Laboratory Medicine - [address] [address] Outr Resulting Lab, Provider Social History Tobacco [...] Stranded) <12.3 <30.0 IU/mL 11/03/2022 13:08 EDT [facility] Comment: ? Negative: ??<30.0 IU/mL ? Borderline Positive: ??30.0 - 75.0 IU/mL ? Positive: ??>75.0 IU/mL Results were obtained with the INOVA QUANTA Lite dsDNA SC DOMO assay on the [employer] DSX. Blood VENOUS BLOOD / Unknown 10/29/2022 14:00 EDT 10/30/2022 19:27 EDT Provider Outr Resulting Lab IMMUNOLOGY A ND SEROLOGY ORDERABLES Performing Organization Address [facility] de Phone Number [facility] [address] [place] [address] * SM (MORENO) ANTIBODY (10/29/2022 14:00 EDT) [facility] SM (Moreno) Antibody 18.5 <20.0 Units 11/03/2022 14:26 EDT [facility] Comment: ? Negative: <20.0 [...] A ND SEROLOGY ORDERABLES Performing Organization Address [facility] de Phone Number [facility] [address] [place] [address] documented in this encounter Visit Diagnoses Not on filedocumented in this encounter Care Teams Dust Sampler Relationship Specialty Start Date End Date Ashley Chavez ARNP [address] [place] [address] PCP - General 07/11/10 documented as of this encounter
--- OUTSIDE RECORDS SUMMARY | 2024-04-25 16:13 | XMS_ITS | Encounter Summary ---
Author Organization [facility] Address [address] [place] [address] Care Team Providers Care Design Maintenance Engineer Name Role Phone Ashley Chavez Primary Care Provider [phone] Encounter Details Date Type Department Care Team (Late st Contact Info) Description 01/07/2023 Lab Requisition [facility] Pathology & Laboratory Medicine - [address] [id number] Outr Resulting Lab, Provider Social History Tobacco [...] 56.2 55.8 - 66.1 % 01/08/2023 11:28 [facility] Albumin g/dL 3.9 3.6 - 5.2 g/dL 01/08/2023 11:28 [facility] Alpha-1 % 5.1(H) 2.9 - 4.9 % 01/08/2023 11:28 [facility] Alpha-1 g/dL 0.40 0.15 - 0.40 g/dL 01/08/2023 11:28 [facility] Alpha-2 % 7.0(L) 7.1 - 11.8 % 01/08/2023 11:28 [facility] Alpha-2 g/dL 0.50 0.50 - 1.00 g/dL 01/08/2023 11:28 [facility] Beta % 12.7 8.4 - 13.1 % 01/08/2023 11:28 [facility] Beta g/dL 0.90 0.60 - 1.20 g/dL 01/08/2023 11:28 [facility] Gamma % 19.0(H) 11.1 - 18.8 % 01/08/2023 11:28 [facility] Gamma g/dL 1.30 0.60 - 1.60 g/dL 01/08/2023 11:28 [facility] SPEP Comment No apparent monoclonal protein seen on serum electrophoresis 01/08/2023 11:28 [facility] Comment:See scanned/suppleme ntary report. Total Protein 6.9 6.3 - 8.2 g/dL 01/08/2023 11:28 [facility] Blood VENOUS BLOOD / Unknown 01/06/2023 14:40 EDT 01/07/2023 17:37 EDT Provider Outr Resulting Lab CHEMISTRY & BLOOD GAS ORDERABLES Performing Organization Address City/State/[facility] Co de Phone Number [facility] [address] [place] [address] * PROTEIN, TOTAL (01/06/2023 14:40 EDT) Blood VENOUS BLOOD / Unknown 01/06/2023 14:40 EDT 01/07/2023 17:37 EDT Provider Outr Resulting Lab CHEMISTRY & BLOOD GAS ORDERABLES Performing Organization Address [facility] Co de Phone Number [facility] [address] [place] [address] * (ABNORMAL) EXTRACTABLE NUCLEAR ANTIGEN PANEL (01/06/2023 14:40 EDT) SSA Antibody 1.3 <20.0 Units 01/08/2023 15:42 EDT [facility] Comment: ? Negative: [...] Antibody 1.5 <20.0 Units 01/08/2023 15:42 EDT [facility] Comment: ? Negative: [...] Antibody 15.3 <20.0 Units 01/08/2023 15:42 EDT [facility] Comment: ? Negative: <20.0 Units ? Weak Positive: 20.0 - 39.9 Units ? Moderate Positive: 40.0 - 80.0 Units ? Strong Positive: >80.0 Units Results were obtained with the [employer] QUANTA Lite Sm DOMO. ??Sm values obtained with different manufacturers' assay methods may not be used interchangeably. ??The magnitude of the reported IgG levels cannot be correlated to an endpoint titer. ASSISTANT PROFESSOR OF THEATER Antibody 149.1(H) <20.0 Units 01/08/2023 15:42 EDT [facility] Comment: ? Negative: <20.0 Units ? Weak Positive: 20.0 - 39.9 Units ? Moderate Positive: 40.0 - 80.0 Units ? Strong Positive: >80.0 Units Results were obtained with the [employer] Quanta Lite ASSISTANT PROFESSOR OF THEATER DOMO. ASSISTANT PROFESSOR OF THEATER values obtained with different trimmer sawyer's assay methods may not be used interchangeaby. ??The magnitude of the reported IgG levels cannot be be correlated to an endpoint titer. A positive result in the Quanta Lite ASSISTANT PROFESSOR OF THEATER DOMO indicates the presence of antibodies reactive with the ASSISTANT PROFESSOR OF THEATER/Sm complex but cannot distinguish between anti-Sm and anti-ASSISTANT PROFESSOR OF THEATER activity. Blood VENOUS BLOOD / Unknown 01/06/2023 14:40 EDT 01/07/2023 17:37 EDT Provider Outr Resulting Lab IMMUNOLOGY A ND SEROLOGY ORDERABLES [facility] [address] [place] [address] * (ABNORMAL) ANTI NUCLEAR AB (FRANCISCO), IFA (01/06/2023 14:40 EDT) FRANCISCO Interpretation Positive(A) Negative 01/08/2023 15:22 EDT [facility] Comment: Result is equal to or greater than 1:5120. For titers greater than or equal to 1:160 (except the centromere, nucleolar, and dense fine speckled patterns) it is recommended that specific, follow-up autoantibody testing (such as for dsDNA and Extractable Nuclear Antigens) be performed on all diffuse and/or speckled patterns. FRANCISCO Titer and Pattern 1 1:5120 Speckled 01/08/2023 15:22 EDT [facility] Blood VENOUS BLOOD / Unknown 01/06/2023 14:40 EDT 01/07/2023 17:37 EDT Narrative [facility] - 01/08/2023 15:22 EDT Results were obtained with the INOVA NOVA Lite HEp-2 FRANCISCO Kit by indirect immunofluorescence. Provider Outr Resulting Lab IMMUNOLOGY A ND SEROLOGY ORDERABLES Performing Organization Address City/State/[facility] Co de Phone Number [facility] [address] [place] [address] documented in this encounter Visit Diagnoses Not on filedocumented in this encounter Care Teams Design Maintenance Engineer Relationship Specialty Start Date End Date Ashley Chavez ARNP [address] [place] [address] PCP - General 07/11/10 documented as of this encounter
--- OUTSIDE RECORDS SUMMARY | 2024-04-25 16:13 | XMS_ITS | Encounter Summary ---
Author Organization [facility] Address [address] [place] [address] Care Team Providers Care Head Resident Name Role Phone Ashley Chavez Primary Care Provider [phone] Encounter Details Date Type Department Care Team (Late st Contact Info) Description 05/12/2022 Lab Requisition [facility] Pathology & Laboratory Medicine - [address] [address] Outr Resulting Lab, Provider Social History Tobacco [...] 14:32 EDT) Hold Hold 05/12/2022 22:46 EDT [facility] Blood VENOUS BLOOD / Unknown 05/12/2022 14:32 EDT 05/12/2022 21:40 EDT Provider Outr Resulting Lab LAB INFO SER VICE AND SUPPORT & PHONE RESULT Performing Organization Address [facility] [address]/ZIP Co de Phone Number [facility] [address] [place] [address] * (ABNORMAL) HOMOCYSTEINE (05/12/2022 14:32 EDT) Homocysteine 14.7(H) 5.0 - 13.9 umol/L 05/13/2022 9:05 EDT [facility] Comment:Results may be false ly elevated if sample is not collected on ice or is not removed from cells within 1 hour of collection. Blood VENOUS BLOOD / Unknown 05/12/2022 14:32 EDT 05/12/2022 21:40 EDT Narrative [facility] - 05/13/2022 9:05 [...] & BLOOD GAS ORDERABLES Performing Organization Address [facility] Co de Phone Number [facility] [address] [place] [address] * HAPTOGLOBIN (05/12/2022 14:32 EDT) Pathologist [facility] Haptoglobin 138 32 - 197 mg/dL 05/13/2022 9:55 EDT [facility] Blood VENOUS BLOOD / Unknown 05/12/2022 14:32 EDT 05/12/2022 21:36 EDT Provider Outr Resulting Lab CHEMISTRY & BLOOD GAS ORDERABLES Performing Organization Address [facility] [address]/[facility] Co de Phone Number [facility] [address] [place] [address] * (ABNORMAL) ANTI NUCLEAR AB (FRANCISCO), IFA (05/12/2022 14:32 EDT) FRANCISCO Interpretation Positive(A) Negative 05/13/2022 14:44 EDT [facility] Comment: Result is [...] Pattern 1 1:5120 Speckled 05/13/2022 14:44 EDT [facility] Blood VENOUS BLOOD / Unknown 05/12/2022 14:32 EDT 05/12/2022 21:36 EDT Narrative [facility] - 05/13/2022 14:44 EDT Results were obtained with the INOVA NOVA Lite HEp-2 FRANCISCO Kit by indirect immunofluorescence. Provider Outr Resulting Lab IMMUNOLOGY A ND SEROLOGY ORDERABLES [facility] [address] [place] [address] documented in this encounter Visit Diagnoses Not on filedocumented in this encounter Care Teams Head Resident Relationship Specialty Start Date End Date Ashley Chavez ARNP [address] [place] [address] PCP - General 07/11/10 documented as of this encounter
--- OUTSIDE RECORDS SUMMARY | 2024-04-25 16:13 | XMS_ITS | Encounter Summary ---
Author Organization [facility] Address [address] [place] [address] Care Team Providers Care Telemarketing Fundraiser Name Role Phone Scott, Ashley WILLIAM Primary Care Provider Encounter Details Date Type Department Care Team (Late st Contact Info) Description 03/21/2024 Lab Requisition [facility] Pathology & Laboratory Medicine - [address] [address] Consuelo Guerrero, DO [address] [place], [place] [address] Encounter for other general examination Social History [...] LORY Negative 03/21/2024 22:31 EDT [facility]OD [facility] Blood VENOUS BLOOD / Unknown 03/21/2024 13:00 EDT 03/21/2024 21:51 EDT Consuelo Guerrero DO BLOOD BANK TESTS [facility] [address] [place] [address] documented in this encounter Visit Diagnoses Diagnosis Encounter for other general examination documented in this encounter Care Teams Telemarketing Fundraiser Relationship Specialty Start Date End Date Ashley Chavez ARNP [address] [place] [address] PCP - General 07/11/10 documented as of this encounter
--- OUTSIDE RECORDS SUMMARY | 2024-04-25 16:14 | XMS_ITS | Encounter Summary ---
Author Organization [facility] [place] [address] Care Team Providers Care Manager Aerospace Name Role Phone Magdalena Acosta MD Primary Care Provider [phone] Reason for Referral * Diagnostic Test (Routine) - Closed Specialty Diagnoses / Procedures Referred By Contac t Referred To Contact Cardiology Diagnoses S/P TAVR (transcatheter aortic valve replacement) Procedures Echocardiogram Transthoracic Vinod Juárez PA [facility] [place] [address] [facility] [place] [address] Referral ID Status Reason Start Date Expiration Date V isits Requested Visits Authorized [id number] Closed Specialty Service Requested 05/22/2023 05/21/2024 1 1 Reason for Visit * Diagnostic Test (Routine) - Closed Specialty Diagnoses / Procedures Referred By Contac t Referred To Contact Cardiology Diagnoses S/P TAVR (transcatheter aortic valve replacement) Procedures Echocardiogram Transthoracic Viond Juárez PA [facility] [place] [address] [facility] [place] [address] Referral ID Status Reason Start Date Expiration Date V isits Requested Visits Authorized [id number] Closed Specialty Service Requested 05/22/2023 05/21/2024 1 1 Encounter Details Date Type Department Care Team (Latest Contact Info) Description 07/08/2023 10:19 AM EST - 07/08/2023 11:59 PM EST Hospital Encounter Non-Invasive [place] [address] Alirio Esparza MD S/P TAVR (transcatheter aortic [...] AM EDT Appointment [place] [address] 05/12/2024 10:00 AM EDT Office Visit [place] [address] [facility] [address] [place] [address] 03/01/2025 4:15 PM EDT Office Visit Dermatology at [address] [place] [address] Marek Bonilla MD [address] [facility] [place] [address] documented as of this encounter Procedures Procedure [...] EST Narrative 07/08/2023 12:26 PM EST [address] [place] [address] ? Echocardiogram Report Name: ONESIMO THACKER ?Study Date: 07/08/2023 10:31 AMBP: 118/60 mmHg ? Patient Location: : 1955 ? Height: 155 cm ? Account: [id number] Age: 67 yrs ? Weight: 74 kg Gender: Female ?BSA: 1.7 m2 Ordering Physician: ALIRIO ESPARZA Referring Physician: VINOD JUÁREZ Performed By: Felicia Norris RDCS Reason For Study: S/P TAVR Exam Location: [facility]. Interpretation Summary Left ventricular systolic function [...] no significant change (post-procedure). Procedure Limited - 23999. Doppler - 23631. Color Doppler - 21734. Satisfactory quality. This study is limited because [...] Note Lee Kincaid MD - 07/08/2023 [address] [place] [address] Echocardiogram Report Name: ANDREWONESIMO Study Date: 310:31 AMBP: 118/60 mmHg Patient Location: : 1955 Height: 155 cm Account: [id number] Age: 67 yrs Weight: 74 kg Gender: Female BSA: 1.7 m2 Ordering Physician: ALIRIO ESPARZA Referring Physician: VINOD JUÁREZ Performed By: Felicia Norris RDCS Reason For Study: S/P TAVR Exam Location: [facility]. Interpretation Summary Left ventricular systolic function [...] is nosignificant change (post-procedure). Procedure Limited - 36243. Doppler - 08718. Color Doppler - 58008. Satisfactoryquality. This study is limited because of [...] replacement) documented in this encounter Care Teams Manager Aerospace Relationship Specialty Start Date End Date Magdalena Acosta MD [address] [place] [address] PCP - General Family Medicine 02/05/23 documented as of this encounter
--- OUTSIDE RECORDS SUMMARY | 2024-04-25 16:14 | XMS_ITS | Encounter Summary ---
Author Organization [facility] [place] [address] Care Team Providers Care Movie Operator Name Role Phone Magdalena Acosta MD Primary Care Provider [phone] Encounter Details Date Type Department Care Team [...] AM EDT Appointment Hematology [place] [address] 05/12/2024 10:00 AM EDT Office Visit Hematology [place] [address] Markel Borjas MD [facility] [address] [place] [address] 03/01/2025 4:15 PM EDT Office Visit Dermatology at [place] [address] [place] [id number] Marek Bonilla MD [address] [place] [address] documented as of this encounter Visit Diagnoses Not on filedocumented in this encounter Care Teams Movie Operator Relationship Specialty Start Date End Date Magdalena Acosta MD [address] [place] [address] PCP - General Family Medicine 02/05/23 documented as of this encounter
--- OUTSIDE RECORDS SUMMARY | 2024-04-25 16:14 | XMS_ITS | Encounter Summary ---
[place] [address] Care Team Providers Care Machine I Cutter Name Role Phone Magdalena Acosta MD Primary Care Provider Reason for Referral * Consultation (Routine) - Authorized Specialty Diagnoses / Procedures Referred By Contac t Referred To Contact Hematology and Oncology Diagnoses Anemia, unspecified type Consuelo Guerrero DO [address] [place] [address] [address] [place] [address] [facility] Hem Onc [address] [place] [address] Referral ID Status Reason Start Date Expiration Date Visits Requested Visits Authorized [id number] Authorized Consult, Test & Treat 04/11/2024 04/11/2025 1 1 Encounter Details Date Type Department Care Team (Late st Contact Info) Description 04/11/2024 Transcribe Orders eDH Incoming Referrals [phone] Consuelo Guerrero DO [address] [place] [address] [address] [place] [address] Anemia, unspecified type Social History Tobacco Use Types Packs/Day Years Used Date Smoking Tobacco: Never Smokeless Tobacco: Never Alcohol Use Standard Drinks/Week Comments No 0 (1 standard drink = 0.6 oz pur e alcohol) none [facility] Inpatient Questions Answer Date Recorded [...] AM EDT Appointment Hematology [place] [address] 05/12/2024 10:00 AM EDT Office Visit Hematology [place] [address] Markel Borjas MD [facility] [address] HEMATOLOGY [place] [address] 03/01/2025 4:15 PM EDT Office Visit Dermatology at [address] [address] Marek Bonilla MD [address] [facility] [place] [address] Scheduled Referrals Name Type Priority Associated Diagnoses Orde r Schedule Referral to Hematology and Oncology Outpatient Referral Routine Anemia, unspecified type Ordered: 04/11/2024 documented as of this encounter Visit Diagnoses Diagnosis Anemia, unspecified type documented in this encounter Care Teams Machine I Cutter Relationship Specialty Start Date End Date Magdalena Acosta MD [address] [place] [address] PCP - General Family Medicine 02/05/23 documented as of this encounter
--- OUTSIDE RECORDS SUMMARY | 2024-04-25 16:14 | XMS_ITS | Encounter Summary ---
Author Organization [facility] Address [address] [place] [address] Care Team Providers Care Roving Department Supervisor Name Role Phone Scott Ashley WILLIAM Primary Care Provider [phone] Encounter Details Date Type Department Care Team (Late st Contact Info) Description 05/12/2019 Results Only [facility] [phone] Nadira Gregorio MD [address] [place] [phone] Social History Tobacco Use Types Packs/Day [...] ? 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 Accession #: ? [id number] ? : ? 1955 (Age: 63) ??F ? Collect Date: ? 05/12/2019 ? Location: ? [facility] ? Receive Date: ? 05/12/2019 ? Provider: NADIRA GREGORIO MD Copy to: WINTER HANKINS COLLISION WORKER ? Final Pathologic Diagnosis: COLON, CECUM, POLYP, [...] 05/12/2019 6:08 PM End of Report [facility] 05/12/2019 16:0 3 EDT 05/12/2019 16:03 EDT Nadira Gregorio MD PATHOLOGY ORDERABLES [facility] [address] [place] [address] documented in this encounter Visit Diagnoses Not on filedocumented in this encounter Care Teams Roving Department Supervisor Relationship Specialty Start Date End Date Ashley Chavez ARNP [address] [place] [address] PCP - General 07/11/10 documented as of this encounter
--- OUTSIDE RECORDS SUMMARY | 2024-04-25 16:14 | XMS_ITS | Encounter Summary ---
[place] [address] Care Team Providers Care Hearing Instrument Specialist Name Role Phone Magdalena Acosta MD Primary Care Provider [phone] Reason for Visit * Reason Comments Annual Exam Encounter Details Date Type Department Care Team (Late st Contact Info) Description 02/22/2024 4:15 PM EDT Office Visit Dermatology at [address] [phone] Marek Bonilla MD [address] [facility], [facility] A DERMATOLOGY [place], [place] [phone] Seborrheic keratosis; Rosacea; Nevus Social History Tobacco [...] cutaneous and ocular 3. Previously told by supervisor prepress that she had corneal tears from her [...] AM EDT Appointment [place] [address] 05/12/2024 10:00 AM EDT Office Visit [place]ology [place] [address] Markel Borjas MD [facility] [address] [place] [address] 03/01/2025 4:15 PM EDT Office Visit Dermatology at [place] [address] [facility] [place] [address] Marek Bonilla MD [address] [facility], [place] [address] documented as of this encounter Visit Diagnoses Diagnosis Seborrheic keratosis Other seborrheic keratosis Rosacea Nevus Benign neoplasm of skin, site unspecified documented in this encounter Care Teams Hearing Instrument Specialist Relationship Specialty Start Date End Date Magdalena Acosta MD [address] [place] [address] PCP - General Family Medicine 02/05/23 documented as of this encounter
--- OUTSIDE RECORDS SUMMARY | 2024-04-25 16:14 | XMS_ITS | Encounter Summary ---
[place] [address] Care Team Providers Care Lab Scientist Name Role Phone Magdalena Acosta MD Primary Care Provider [phone] Encounter Details Date Type Department Care Team (Latest Contact Info) Description 10/05/2023 10:52 AM EST - 10/05/2023 11:59 PM [facility] Hospital En[place] [address] Mixed connective tissue disease Discharge Disposition: Home Social History Tobacco Use Types Packs/Day Years Used Date Smoking Tobacco: Never Smokeless Tobacco: Never Alcohol Use Standard Drinks/Week Comments No 0 (1 standard drink = 0.6 oz pur e alcohol) none FOR[facility]LY [facility], [facility] Inpatient Questions Answer Date Recorded [...] EDT Appointment Hematology [place] [address] 05/12/2024 10:00 AM EDT Office Visit Hematology [place] [address] Markel Borjas MD [facility] [address] HEMATOLOGY [place] [address] 03/01/2025 4:15 PM EDT Office Visit Dermatology at [place] [address] [place] [address] Marek Bonilla MD [address], [place] [address] documented as of this encounter Procedures Procedure [...] PFT FEV1/FVC Pre-BD Z-Score 0 COMPAS PFT EPM55-79 Actual Pre-BD 2.41 % COMPAS PFT ABH74-91 Predicted 1.8 % COMPAS PFT QIR96-16 Pre-BD % of Predicted 134 % COMPAS PFT JBB90-46 Pre-BD Z-Score 0.81 COMPAS PFT DLCO Hb [...] tissue documented in this encounter Care Teams Lab Scientist Relationship Specialty Start Date End Date Magdalena Acosta MD [address] [place] [address] PCP - General Family Medicine 02/05/23 documented as of this encounter
--- OUTSIDE RECORDS SUMMARY | 2024-04-25 16:14 | XMS_ITS | Encounter Summary ---
Author Organization [facility] Address [address] [place] [address] Care Team Providers Care Dry Finisher Name Role Phone Ashley Chavez Primary Care Provider Encounter Details Date Type Department Care Team (Latest Contact Info) Description 05/12/2019 13:18 EDT - 05/12/2019 23:59 EDT Hospital Encounter [address] [address] Unknown, Provider, Discharge Disposition: Home or Self Care Social History Tobacco Use Types Packs/Day Years Used Date Smoking Tobacco: Never Assessed Sex and Gender Information Value Date Recorded Sex Assigned at Not on file Gender Identity Not on file Sexual Orientation Not on file documented as of this encounter Discharge Disposition Disposition Code Departure Means Destination Home or Self [facility] documented in this encounter Plan of Treatment Not on file documented as of this encounter Visit Diagnoses Not on filedocumented in this encounter Care Teams Dry Finisher Relationship Specialty Start Date End Date Ashley Chavez ARNP [address] [place] [address] PCP - General 07/11/10 documented as of this encounter
--- OUTSIDE RECORDS SUMMARY | 2024-04-25 16:14 | XMS_ITS | Encounter Summary ---
[place] [address] Care Team Providers Care Collection Supervisor Name Role Phone Magdalena Acosta MD Primary Care Provider [phone] Reason for Visit * Reason Onset Date Comments Pre Procedure Call 03/01/2024 DAPT hold for EGD and colo? Encounter Details Date Type Department Care Team (Late st Contact Info) Description 03/01/2024 Telephone Cardiology at [address] [phone] Cynthia Monsalve RN Pre Procedure Call (DAPT [...] safe. Jay Message above left with Yenifer (spar machine operator helper), who would be leaving this note in patient's chart for providers to schedule patient. No further questions or needs at this time. This nurse stated, note will be placed regarding this call in our chart for patient. Kezia Whitney RN, BSN Ambulatory Cardiology Clinic, [facility] [phone] * Telephone Encounter - Cynthia Monsalve RN - 03/01/2024 2:09 PM EDT Nurse Veronica from [facility] called, requesting a hold on ASA and/or Plavix for the patient's anticipated EGD and colonoscopy. -Cynthia Monsalve RN documented in this encounter Plan of Treatment Upcoming Encounters Date Type Department Care Team (Late st Contact Info) Description 05/12/2024 9:00 AM EDT Appointment [place] [address] 05/12/2024 10:00 AM EDT Office Visit [place] [address] Markel Borjas MD [facility] [address] [place] [address] 03/01/2025 4:15 PM EDT Office Visit Dermatology at [place] [address] [place] [address] Marek Bonilla MD [address] [facility] [address] [address], [place] [address] documented as of this encounter Visit Diagnoses Not on filedocumented in this encounter Care Teams Collection Supervisor Relationship Specialty Start Date End Date Magdalena Acosta MD [address] [place] [address] PCP - General Family Medicine 02/05/23 documented as of this encounter
--- OUTSIDE RECORDS SUMMARY | 2024-04-25 16:14 | XMS_ITS | Encounter Summary ---
Author Organization [facility] Address [facility] [place] [address] Care Team Providers Care River Crossing Supervisor Name Role Phone Magdalena Acosta MD Primary Care Provider [phone] Encounter Details Date Type Department Care Team (Late st Contact Info) Description 07/29/2023 11:00 AM EST Office Visit [place] [address] Magdalena Peralta MD [facility] [place] [address] Mixed connective tissue disease Social History Tobacco [...] 1:5120 speckled; VIC negative; Myositis panel with BOTTOM BLEACHER ab 149.1 (positive); Anti U1RNP IgG 119; [...] Viramontes. Magdalena Peralta MD Rheumatology Fellow Pager: [phone] * Kia Viramontes DO - 07/29/2023 11:00 AM EST ATTENDING ADDENDUM The patient's history was reviewed, and I interviewed and examined the patient with Dr. Peralta I agree with her summary, findings, and plan. documented in this encounter Plan of Treatment Upcoming Encounters Date Type Department Care Team (Late st Contact Info) Description 05/12/2024 9:00 AM EDT Appointment Hematology [place] [address] 05/12/2024 10:00 AM EDT Office Visit Hematology [place] [address] Markel Borjas MD [facility] [address] [place] [address] 03/01/2025 4:15 PM EDT Office Visit Dermatology at [place] [address] [facility] [address] [facility] [place] [address] Marek Bonilla MD [address] [facility] [address], [place] [address] documented as of this encounter Results * [...] PFT FEV1/FVC Pre-BD Z-Score 0 COMPAS PFT LNX41-70 Actual Pre-BD 2.41 % COMPAS PFT JYO43-02 Predicted 1.8 % COMPAS PFT AST09-20 Pre-BD % of Predicted 134 % COMPAS PFT HYN49-45 Pre-BD Z-Score 0.81 COMPAS PFT DLCO Hb [...] tissue documented in this encounter Care Teams [place] Supervisor Relationship Specialty Start Date End Date Magdalena Acosta MD [address] [place] [address] PCP - General Family Medicine 02/05/23 documented as of this encounter
--- OUTSIDE RECORDS SUMMARY | 2024-04-25 16:14 | XMS_ITS | Encounter Summary ---
Author Organization [facility] [place] [address] [address] Team Providers Care Ct Mri Technologist Name Role Phone Magdalena Acosta MD Primary Care Provider Encounter Details Date Type Department Care Team (Late st Contact Info) Description 12/02/2023 11:15 AM EDT Office [place] [address] Magdalena Peralta MD [facility] [place] [address] Mixed connective tissue disease Social History Tobacco [...] 1:5120 speckled; VIC negative; Myositis panel with RAILROAD DETECTIVE ab 149.1 (positive); Anti U1RNP IgG 119; [...] list of questions that she sent via [facility] ahead [facility] her visit, which [...] exposure. She has an appointment with her [employer] scheduled in January. (Dr Bonilla in [place]) ROS (positives in bold): Gen: no fevers, [...] but I encouraged her to contact her [employer] to see if she could have her [...] Dr. Tanisha Peralta MD Rheumatology Fellow Pager: [phone] * Federico Yee MD - 12/02/2023 11:15 [...] AM EDT Appointment Hematology [place] [address] 05/12/2024 10:00 AM EDT Office Visit Hematology [place] [address] Markel Borjas MD [facility] [address] HEMATOLOGY [place] [address] 03/01/2025 4:15 PM EDT Office Visit Dermatology at [address] [phone] Marek Bonilla MD [address] [place] [address], [facility] [place] [address] Scheduled Orders Name Type Priority Associated Diagnoses Orde r Schedule EKG 12 Lead ECG Routine Mixed connective tissue disease Expected: 12/02/2023, Expires: 06/03/2024 documented as of this encounter Visit Diagnoses Diagnosis Mixed connective tissue disease Other specified diffuse disease of connective tissue documented in this encounter Care Teams Ct Mri Technologist Relationship Specialty Start Date End Date Magdalena Acosta MD [address] [place] [address] PCP - General Family Medicine 02/05/23 documented as of this encounter
--- OUTSIDE RECORDS SUMMARY | 2024-04-25 16:14 | XMS_ITS | Encounter Summary ---
Author Organization [facility] Address [address] [place] [address] Care Team Providers Care Brass Bobbin Winder Name Role Phone Unavailable Primary Care Provider Unavailabl e Encounter Details Date Type Department Care Team (Late st Contact Info) Description 06/29/2007 Results Only [facility] - [facility] conversion [address] [place] [address] Sánchez Acevedo MD [address] [place] [address] Social History Tobacco Use Types Packs/Day Years [...] ? 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 Accession #: ? [id number] ? : ? 1955 (Age: 51) ??F [...] covered by a smooth white serosa. ??Three clearance representative sections of the gallbladder are submitted in one cassette. ??(Sriram Elias/[facility] End of Report [facility] 06/29/2007 06/29/2007 21: 23 EST Sánchez Acevedo MD PATHOLOGY ORDERABLE S [facility] [address] [place] [address] documented in this encounter Visit Diagnoses Not on filedocumented in this encounter
--- OUTSIDE RECORDS SUMMARY | 2024-04-25 16:14 | XMS_ITS | Encounter Summary ---
Author Organization [facility] Address [address] [place] [address] Care Team Providers Care Photographic Engineer Name Role Phone Scott Ashley WILLIAM Primary Care Provider [phone] Encounter Details Date Type Department Care Team (Late st Contact Info) Description 11/10/2013 Results Only [facility] [phone] Jeni Laird, CHIEF CUSTOMER OFFICER [address] [place], [place] [phone] Social History Tobacco Use Types Packs/Day Years [...] ? 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 Accession #: ? [id number] : ? 1955 (Age: 58) ??F ?Collect Date: ? 11/10/2013 Location: ? [facility] ? Receive Date: ? 11/14/2013 Provider: ?JENI LAIRD CHIEF CUSTOMER OFFICER Copy to: ? Specimen/Source: ?Pap Test, Endocervix, [...] Report [facility] 11/10/2013 11/14/2013 Jeni Laird CHIEF CUSTOMER OFFICER PATHOLOGY ORDERAB LES Performing Organization Address City/State/[facility] Co de Phone Number [facility] [address] [place] [address] documented in this encounter Visit Diagnoses Not on filedocumented in this encounter Care Teams Photographic Engineer Relationship Specialty Start Date End Date Ashley Chavez ARNP [address] [place] [address] PCP - General 07/11/10 documented as of this encounter
--- OUTSIDE RECORDS SUMMARY | 2024-04-25 16:14 | XMS_ITS | Encounter Summary ---
Author Organization [facility] [place] [address] Care Team Providers Care Defect Cutter Name Role Phone Magdalena Acosta MD Primary Care Provider [phone] Encounter Details Date Type Department Care Team (Late st Contact Info) Description 07/08/2023 10:15 AM EST Office Visit Cardiology at [address] [phone] Severe aortic stenosis Social History Tobacco Use [...] AM EDT Appointment Hematology [place] [address] 05/12/2024 10:00 AM EDT Office Visit Hematology [place] [address] Markel Borjas MD [facility] [address] [place] [address] 03/01/2025 4:15 PM EDT Office Visit Dermatology at [place] [address] [address] [place] [address] Marek Bonilla MD [address] [facility], [place] [address] documented as of this encounter Procedures Procedure [...] (Bezet) 449 ms MUSE SYSTEM Calculated P [place] 66 degrees MUSE SYSTEM Calculated R [place] 60 degrees MUSE SYSTEM Calculated T [place] 53 degrees MUSE SYSTEM INTERPRETATION Normal sinus rhythm Minimal voltage criteria for LVH, may be normal variant ( Sokolow-Orozco ) ST & T wave abnormality, consider lateral ischemia ??vs. repolarization abnormality from LVH Abnormal ECG When compared with ECG of 13-MAY-2023 09:22, Premature ventricular complexes are no longer Present Minimal criteria for Septal infarct are no longer Present Confirmed by Maxx Best ([id number]) on 07/09/2023 10:07:22 AM MUSE SYSTEM 07/08/2023 10:2 7 AM EST 07/09/2023 10:07 AM EST Brody Dale Eusebio OSBORN ECG ORDERABLES [employer] documented in this encounter Visit Diagnoses Diagnosis Severe aortic stenosis Aortic valve disorders documented in this encounter Care Teams Defect Cutter Relationship Specialty Start Date End Date Magdalena Acosta MD [address] [place] [address] PCP - General Family Medicine 02/05/23 documented as of this encounter
--- OUTSIDE RECORDS SUMMARY | 2024-04-25 16:14 | XMS_ITS | Encounter Summary ---
[place] [address] Care Team Providers Care Industrial Economics Teacher Name Role Phone Magdalena Acosta MD Primary Care Provider [phone] Encounter Details Date Type Department Care Team (Latest Contact Info) Description 07/08/2023 12:35 PM EST Laboratory Appointment Lab [address] [place] [address] S/P TAVR (transcatheter aortic valve [...] AM EDT Appointment [place]ematology [place] [address] 05/12/2024 10:00 AM EDT Office Visit [place]ematology [place] [address] [facility] [address] [place] [address] 03/01/2025 4:15 PM EDT Office Visit Dermatology at [place] [address] [place] [address] Marek Bonilla MD [address], [place] [address] documented as of this encounter Procedures Procedure [...] AM EST) Neutrophil % 73.2 % [facility] Neutrophil Absolute 3.40 1.70 - 6.10 x10(3)/mc L [facility] Lymph % 16.1 % [facility] Lymphocytes Abs 0.8(L) 0.9 - 3.2 x10(3)/mc L [facility] Monocyte % 9.7 % [facility] ITAL [facility] Monocyte Abs 0.4 0.3 - 0.9 x10(3)/mc L [facility] Eos % 0.4 % [facility] Eosinophils Abs 0.0 0.0 - 0.4 x10(3)/mc L [facility] Basophil % 0.4 % [facility] Baso Absolute 0.0 0.0 - 0.1 x10(3)/ L [facility] Immature Gran % 0.20 % [facility] Comment: Immature granulocytes(IG's)percentage and absolute count will include metamyelocytes, myelocytes, and promyelocytes. Blood smears from CBCs yielding IG's will be scanned manually for concordance. If this scan disagrees with the automated IG or if promyelocytes are noted, a manual differential will be performed. Immature Gran Absolute 0.01 0.00 - 0.04 x10(3)/ L [facility] Blood 07/08/2023 11:5 6 AM EST 07/08/2023 12:02 PM EST Narrative Resulting Agency Comment Spec In Lab Minh TOBAR HEMATOLOGY ORDERABLE S [facility] [place] [address] * (ABNORMAL) Hemogram (07/08/2023 11:56 AM EST) White Blood Cell 4.6 4.0 - 9.5 x10(3)/[facility] LABORATORY Red Blood Cell 3.34(L) 4.00 - 5.21 x10(6)/[facility] LAB[facility]ATORY Hemoglobin 11.0(L) 11.7 - 15.5 g/dL [facility] Hematocrit 33.2(L) 35.7 - 45.8 % [facility] Mean Cell Volume 99.4(H) 82.6 - 94.4 fL [facility] Mean Cell Hemoglobin 32.9(H) 27.1 - 32.0 pg [facility] Mean Cell Hemoglobin Concentration 33.1 31.7 - 35.0 g/dL [facility] Platelet 166 145 - 357 x10(3)/[facility] LABORATORY RDW Standard Deviation 47.1(H) 37.0 - 46.0 fL [facility] RDW coefficient of variation 13.0 11.5 - 14.1 % [facility] Mean Platelet Volume 9.0 7.6 - 12.9 fL [facility] NRBC% auto 0.0 % [facility] NRBC Absolute 0.000 0.000 - 0.000 x10(3)/ L [facility] Blood 07/08/2023 11:5 6 AM EST 07/08/2023 12:02 PM EST Narrative Resulting Agency Comment Spec In Lab Minh TOBAR HEMATOLOGY ORDERABLE S [facility] [address] * (ABNORMAL) Comprehensive metabolic panel (non-fasting) (07/08/2023 11:56 AM EST) Glucose 93 65 - 199 mg/dL [facility] Comment:Diabetes: >=200 mg/d L plus symptoms Blood Urea Nitrogen 19(H) 8 - 18 mg/dL [facility] Creatinine 0.81 0.70 - 1.20 mg/dL [facility] Sodium 142 135 - 145 mmol/L [facility] Potassium 3.8 3.5 - 5.0 mmol/L [facility] Comment: Please note: ??Patients with WBC >100,000 may have falsely elevated Potassium levels. ??For accurate Potassium quantification in these patients send serum separator tube (gold top) for subsequent determinations. ??Contact the Clinical Chemistry Laboratory if there are any questions. Chloride 104 98 - 107 mmol/L [facility] Carbon Dioxide 26 22 - 31 mmol/L [facility] Anion Gap 12 5 - 15 mmol/L [facility] Calcium 10.2 8.5 - 10.5 mg/dL [facility] Protein, Total 7.4 6.1 - 8.0 g/dL [facility] Albumin 4.1 3.2 - 5.2 g/dL [facility] Aspartate Aminotransferase 24 0 - 30 unit/L [facility] Alanine Aminotransferase 12 0 - 30 unit/L [facility] Alkaline Phosphatase 93 35 - 105 unit/L [facility] Bilirubin, Total 0.3 0.2 - 1.3 mg/dL [facility] Est Glomerular Filtration Rate 80 >=60 mL/min/1. 73 m?? [facility] Comment: This patient's estimated GFR [...] Lab Alirio Esparza MD [place] [address] documented in this encounter Visit Diagnoses Diagnosis S/P TAVR (transcatheter aortic valve replacement) Severe aortic stenosis Aortic valve disorders documented in this encounter Care Teams Industrial Economics Teacher Relationship Specialty Start Date End Date Magdalena Acosta MD [address] [place] [address] PCP - General Family Medicine 02/05/23 documented as of this encounter
--- OUTSIDE RECORDS SUMMARY | 2024-04-25 16:14 | XMS_ITS | Encounter Summary ---
Author Organization [facility] Address [address] [place] [address] Care Team Providers Care Credit Product Analyst Name Role Phone Unavailable Primary Care Provider Unavailabl e Encounter Details Date Type Department Care Team (Late st Contact Info) Description 03/24/2007 11:06 EDT - 03/24/2007 11:59 EDT Hospital Encounter [facility] - Other [address] [place] [address] Ashley Chavez ARNP [address] [place] [address] Discharge Disposition: Home or Self Care Social [...]
--- OUTSIDE RECORDS SUMMARY | 2024-04-25 16:14 | XMS_ITS | Encounter Summary ---
Author Organization [facility] [place] [address] Care Team Providers Care Sr Solutions Consultant Name Role Phone Magdalena Acosta MD Primary Care Provider [phone] Encounter Details Date Type Department Care Team [...] EDT Appointment Hematology [place] [address] 05/12/2024 10:00 AM EDT Office Visit Hematology [place] [address] Markel Borjas MD [facility] [address] HEMATOLOGY [place] [address] 03/01/2025 4:15 PM EDT Office Visit Dermatology at [place] [address] [place] [phone] Marek Bonilla MD [address] [place] [address] documented as of this encounter Visit Diagnoses Not on filedocumented in this encounter Care Teams Sr Solutions Consultant Relationship Specialty Start Date End Date Magdalena Acosta MD [address] [place] [address] PCP - General Family Medicine 02/05/23 documented as of this encounter
--- OUTSIDE RECORDS SUMMARY | 2024-04-25 16:14 | XMS_ITS | Encounter Summary ---
Author Organization [facility] [place] [address] Care Team Providers Care Secondary English Teacher Name Role Phone Magdalena Acosta MD Primary Care Provider [phone] Encounter Details Date Type Department Care Team [...] AM EDT Appointment Hematology [place] [address] 05/12/2024 10:00 AM EDT Office Visit Hematology [place] [address] Markel Borjas MD [facility] [address] HEMATOLOGY [place] [address] 03/01/2025 4:15 PM EDT Office Visit Dermatology at [place] [address] [place] [phone] Marek Bonilla MD [address], [address] [place] [address] documented as of this encounter Visit Diagnoses Not on filedocumented in this encounter Care Teams Secondary English Teacher Relationship Specialty Start Date End Date Magdalena Acosta MD [address] [place] [address] PCP - General Family Medicine 02/05/23 documented as of this encounter
--- OUTSIDE RECORDS SUMMARY | 2024-04-25 16:14 | XMS_ITS | Encounter Summary ---
Author Organization [facility] [place] [address] Care Team Providers Care Kitchen Manager Name Role Phone Magdalena Acosta MD Primary Care Provider [phone] Reason for Referral * Diagnostic Test (Routine) - New Request Specialty Diagnoses / Procedures Referred By Contac t Referred To Contact Cardiology Diagnoses S/P TAVR (transcatheter aortic valve replacement) Procedures Echocardiogram Transthoracic Antelmo Sharma MD [facility] [place] [address] [facility] [place] [address] Referral ID Status Reason Start Date Expiration Date Visits Requested Visits Authorized [id number] New Request Specialty Service Requested 12/16/2023 12/15/2024 1 1 Encounter Details Date Type Department Care Team (Late st Contact Info) Description 12/16/2023 Orders Only Cardiology at [address] [address] Antelmo Sharma MD [facility] [place] [address] S/P TAVR (transcatheter aortic valve [...] AM EDT Appointment Hematology [place] [address] 05/12/2024 10:00 AM EDT Office Visit Hematology [place] [address] Markel Borjas MD [facility] [address] [place] [address] 03/01/2025 4:15 PM EDT Office Visit Dermatology at [place] [address] [facility] [place] [phone] Marek Bonilla MD [address], [place] [address] Scheduled Orders Name Type Priority Associated Diagnoses [...] replacement) documented in this encounter Care Teams Kitchen Manager Relationship Specialty Start Date End Date Magdalena Acosta MD [address] [place] [address] PCP - General Family Medicine 02/05/23 documented as of this encounter
--- OUTSIDE RECORDS SUMMARY | 2024-04-25 16:14 | XMS_ITS | Encounter Summary ---
Author Organization [facility] Address [address] [place] [address] Care Team Providers Care Furniture Sales Associate Name Role Phone Ashley Chavez Primary Care Provider Encounter Details Date Type Department Care Team (Late st Contact Info) Description 06/23/2016 Results Only [facility] [phone] Matthew Acevedo, DO [address] [facility] [address] [place] [address] [place] [address] Social History Tobacco Use Types Packs/Day [...] ? 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 Accession #: ? [id number] : ? 1955 (Age: 60) ??F ?Collect Date: ? 06/23/2016 Location: ? [facility] ? Receive Date: ? 06/24/2016 Provider: ? MATTHEW ACEVEDO DO Copy to: ?WINTER TITUSP MARIO ALBETRO GATES MD ? INTERPRETATION: Normal female karyotype. [...] ??400 ?? KARYOTYPE: 46,XX[25] End of Report [facility] 06/23/2016 06/24/2016 Matthew Acevedo DO PATHOLOGY ORDER JODIE [facility] [address] [place] [address] * FLOW CYTOMETRY (06/23/2016 0:00 EST) Pathology Report: FLOW CYTOMETRY REPORT Reports generated via electronic interface contain original data; however they are lacking the format of the original report. Caution should be taken when reading/interpreting unformatted reports. Name: ? 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 Accession #: ? [id number] : ? 1955 (Age: 60) ??F ?Collect Date: ? 06/23/2016 00:00 Location: ? [facility] ? Receive Date: ? 06/24/2016 08:00 Provider: ?MATTHEW ACEVEDO DO Copy to: ?WINTER HANKINS FOOTWEAR SALES REPRESENTATIVE MARIO ALBERTO RAMOS MD ? FINAL IMMUNOPHENOTYPIC INTERPRETATION: ? Bone marrow, flow cytometric analysis: -No immunophenotypic evidence of a clonal cell population. ??See comment. ? COMMENT: The results of flow cytometry show no immunophenotypic evidence of involvement by a clonal lymphoproliferative or myeloproliferative disorder. ??Correlation of these findings with morphologic and clinical data is essential. ??Please refer to pathology report number [id number] for morphologic details. ? Document reviewed and [...] the Department of Pathology and Laboratory Medicine, [place], [place] ??It has not been cleared or [...] clinical laboratory testing. End of Report ?? [facility] 06/23/2016 06/24/2016 8:0 0 EST Matthew Acevedo DO PATHOLOGY ORDER JODIE [facility] [address] [place] [address] * BONE MARROW/HEMPATH CONSULT (06/23/2016 0:00 EST) Pathology Report: BONE MARROW REPORT Reports generated via electronic interface contain original data; however they are lacking the format of the original report. Caution should be taken when reading/interpreting unformatted reports. Name: ? 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 Accession #: ? [id number] : ? 1955 (Age: 60) ??F ?Collect Date: ? 06/23/2016 Location: ? [facility] ? Receive Date: ? 06/24/2016 Provider: ? MATTHEW ACEVEDO DO Copy to: ?WINTER HANKINS FOOTWEAR SALES REPRESENTATIVE MARIO ALBERTO RAMOS MD ? DIAGNOSIS: Peripheral [...] #1: Aggregate biopsy length: 8 mm with lead electrical engineer trabeculae of lamellar bone, cellular bone [...] SEE ABOVE DISCUSSION Lambda (polyclonal, Dako) ??(B1): [place]ido (polyclonal, Dako) ??(B1): Biopsy (decalcified) #2: Aggregate biopsy length: 8 mm with lead electrical engineer trabeculae of lamellar bone, cellular bone [...] (M115, Leica) ??(B2): Lambda (polyclonal, Dako) ??(B2): [place]ido (polyclonal, Dako) ??(B2): NOTE: ??One or more [...] performance characteristics have been determined by [facility]. ??The positive and negative [...] ? 1% Blasts ?1% Special Studies Cytogenetics ([id number]): Pending. Flow Cytometry ([id number]): No immunophenotypic evidence of a clonal cell population. ? End of Report [facility] 06/23/2016 06/24/2016 Matthew Acevedo DO PATHOLOGY ORDER JODIE [facility] [address] [place] [address] documented in this encounter Visit Diagnoses Not on filedocumented in this encounter Care Teams Furniture Sales Associate Relationship Specialty Start Date End Date Ashley Chavez ARNP [address] [place] [address] PCP - General 07/11/10 documented as of this encounter
--- OUTSIDE RECORDS SUMMARY | 2024-04-25 16:14 | XMS_ITS | Encounter Summary ---
Author Organization [facility] Address [address] [place] [address] Care Team Providers Care Quality Improvement Coordinator (Rn) Name Role Phone Ashley Chavez Primary Care Provider [phone] Encounter Details Date Type Department Care Team (Late st Contact Info) Description 12/17/2021 Lab Requisition [facility] Pathology & Laboratory Medicine - [address] [address] Outr Resulting Lab, Provider Social History Tobacco [...] Negative Negative 12/18/2021 10:37 EDT [facility] Blood VENOUS BLOOD / Unknown 12/17/2021 13:30 EDT 12/17/2021 21:32 EDT Provider Outr Resulting Lab IMMUNOLOGY A ND SEROLOGY ORDERABLES Performing Organization Address [facility] Co de Phone Number [facility] [address] [place] [address] * (ABNORMAL) ANTI NUCLEAR AB (FRANCISCO), IFA (12/17/2021 13:30 EDT) FRANCISCO Interpretation Positive(A) Negative 12/18/2021 16:06 EDT [facility] Comment: For titers greater than [...] 1:1280 Speckled 12/18/2021 16:06 EDT [facility] Blood VENOUS BLOOD / Unknown 12/17/2021 13:30 EDT 12/17/2021 21:32 EDT Narrative [facility] - 12/18/2021 16:06 EDT Results were obtained with the INOVA NOVA Lite HEp-2 FRANCISCO Kit by indirect immunofluorescence. Provider Outr Resulting Lab IMMUNOLOGY A ND SEROLOGY ORDERABLES Performing Organization Address [facility] Co de Phone Number [facility] [address] [place] [address] documented in this encounter Visit Diagnoses Not on filedocumented in this encounter Care Teams Quality Improvement Coordinator (Rn) Relationship Specialty Start Date End Date Ashley Chavez ARNP [address] [place] [address] PCP - General 07/11/10 documented as of this encounter
--- OUTSIDE RECORDS SUMMARY | 2024-04-25 16:14 | XMS_ITS | Encounter Summary ---
Author Organization [facility] [place] [address] Care Team Providers Care Tooth Grinder Name Role Phone Magdalena Acosta MD [...] AM EDT Appointment [place]ology [place] [address] 05/12/2024 10:00 AM EDT Office Visit [place]ematology [place] [phone] Markel Borjas MD [facility] [address] [place] [address] 03/01/2025 4:15 PM EDT Office Visit Dermatology at [place] [address] [place] [phone] Marek Bonilla MD [address], [address] [place] [address] documented as of this encounter Visit Diagnoses Not on filedocumented in this encounter Care Teams Tooth Grinder Relationship Specialty Start Date End Date Magdalena Acosta MD [address] [place] [address] PCP - General Family Medicine 02/05/23 documented as of this encounter
--- OUTSIDE RECORDS SUMMARY | 2024-04-25 16:14 | XMS_ITS | Encounter Summary ---
Author Organization [facility] [place] [address] Care Team Providers Care Regulatory Affairs Director Name Role Phone Magdalena [place] MD Primary Care Provider [phone] Encounter Details Date Type Department Care Team [...] AM EDT Appointment Hematology [place] [address] 05/12/2024 10:00 AM EDT Office Visit [place]ology [place] [phone] Markel Borjas MD [facility] [address] [place] [address] 03/01/2025 4:15 PM EDT Office Visit Dermatology at [place] [address] [place] [phone] Marek Bonilla MD [address], [place] [address] documented as of this encounter Visit Diagnoses Not on filedocumented in this encounter Care Teams Regulatory Affairs Director Relationship Specialty Start Date End Date Magdalena [place] MD [address] [place] [address] PCP - General Family Medicine 02/05/23 documented as of this encounter
--- OUTSIDE RECORDS SUMMARY | 2024-04-25 16:14 | XMS_ITS | Encounter Summary ---
Author Organization [facility] Address [address] [place] [address] Care Team Providers Care Rotary Peel Oven Tender Name Role Phone Scott, Ashley WILLIAM Primary Care Provider [phone] Encounter Details Date Type Department Care Team (Late st Contact Info) Description 12/23/2016 Results Only [facility] [phone] Deborah Quiroga, DEPLOYMENT ENGINEER [address] [place] [phone] Social History Tobacco Use Types Packs/Day Years [...] ? 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 Accession #: ? [id number] ? : ? 1955 (Age: 61) ??F ?Collect Date: ? 12/23/2016 ? Location: ? [facility] ? Receive Date: ? 12/25/2016 ? Provider: DEBORAH QUIROGA CHANNEL ACCOUNT MANAGER Copy to: ? Final Report SPECIMEN ADEQUACY ? Satisfactory for Evaluation - transformation zone component present GENERAL CATEGORIZATION ? Negative for Intraepithelial Lesion or Malignancy ?? Last Menstrual Period: years Specimen/Source: ??Pap Test, Cervix, ThinPrep Imaging System with manual evaluation Document reviewed and electronically signed by: ? Monica Cason [facility] ? Report ??Date: 01/06/2017 09:11 HPV with Pap Test ? Date Ordered: ? 01/06/2017 ? Status: ?? Signed Out ?Date Complete: ? 01/07/2017 ? By: ??System Interface ? Date Reported: ? 01/07/2017 ? Interpretation RESULT: Negative for HPV. No E6 or E7 mRNA is detected from HPV types 16,18,31,33,35, 39,45,51,52,56,58, 59,66, and 68 by customer care team coach mediated amplification. Comments Document reviewed and electronically signed by: ? System Interface ? Report date: 01/07/2017 By the signature above, the attending physician certifies that he/she has personally conducted a gross and/or microscopic examination of the described specimens and rendered or confirmed the above diagnosis. End of Report [facility] 12/23/2016 12/25/2016 Deborah Quiroga DEPLOYMENT ENGINEER PATHOLOGY ORDERABLES [facility] [address] [place] [address] documented in this encounter Visit Diagnoses Not on filedocumented in this encounter Care Teams Rotary Peel Oven Tender Relationship Specialty Start Date End Date Ashley Chavez ARNP [address] [place] [address] PCP - General 07/11/10 documented as of this encounter
--- OUTSIDE RECORDS SUMMARY | 2024-04-25 16:14 | XMS_ITS | Encounter Summary ---
Author Organization [facility] Address [address] [place] [address] Care Team Providers Care Work Study Student Name Role Phone Unavailable Primary Care Provider Unavailabl e Encounter Details Date Type Department Care Team (Late st Contact Info) Description 07/08/2010 Results Only [facility] Non-Invasive Cardiology - [facility] [address] [place] [address] Ahsley Chavez, WILLIAM [address] [place] [address] Social History Tobacco Use Types Packs/Day Years [...] ? 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 Accession #: ? [id number] ? : ? 1955 (Age: 54) ??F [...] Ashley THOMAS PATHOLOGY ORDERABLES PAUL ARELLANO [address] [place] [address] documented in this encounter Visit Diagnoses Not on filedocumented in this encounter
--- OUTSIDE RECORDS SUMMARY | 2024-04-25 16:14 | XMS_ITS | Encounter Summary ---
Author Organization [facility] Address [address] [place] [address] Care Team Providers Care Editor Managing Director Name Role Phone Unavailable Primary Care Provider Unavailabl e Encounter Details Date Type Department Care Team (Late st Contact Info) Description 03/24/2007 Results Only [facility] Non-Invasive Cardiology - [facility] [address] [place], [place] [address] Ashley Chavez ARNP [address] [place] [address] Social History Tobacco Use Types Packs/Day Years [...] ? 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 Accession #: ? [id number] : ? 1955 (Age: 51) ??F ?Collect Date: ? 03/24/2007 Location: ? [facility] ? Receive Date: ? 03/28/2007 Provider: ?ASHLEY THOMAS Copy to: ? Specimen/Source: ?ThinPrep Pap Test, Endocervix, processed on BrandShield ThinPrep Imaging System, with manual evaluation Last [...] Ashley THOMAS PATHOLOGY ORDERABLES PAUL ARELLANO [address] [place] [address] documented in this encounter Visit Diagnoses Not on filedocumented in this encounter
--- OUTSIDE RECORDS SUMMARY | 2024-04-25 16:14 | XMS_ITS | Encounter Summary ---
Author Organization [facility] [place] [address] Care Team Providers Care Semiconductor Wafers Marker Name Role Phone Magdalena [place] MD Primary Care Provider [phone] Reason for Visit * Reason Comments Aortic Stenosis Coronary Artery Disease Hypertension Encounter Details Date Type Department Care Team (Latest Contact Info) Description 11/16/2023 11:40 AM EDT TH Visit (TeleHealth) Cardiology at [address] [address] Jay Maza PA [facility] [place] [address] Aortic valve stenosis, etiology of cardiac valve disease unspecified; Coronary artery disease, unspecified vessel or lesion type, unspecified whether angina present, unspecified whether [place] or transplanted heart Social History Tobacco Use Types Packs/Day Years Used Date Smoking Tobacco: Never Smokeless Tobacco: Never Alcohol Use Standard Drinks/Week Comments No 0 (1 standard drink = 0.6 oz pur e alcohol) none [facility] Inpatient Questions Answer Date Recorded Does Anyone [...] from the original note were not included. [facility] Interventional Cardiology CARDIOLOGY TELE VISIT NOTE 11/16/23 Patient: Purnima Thacker Prior to the initiation of our discussion, the risks and benefits of tele health visits were discussed, and the patient consented verbally to this being a virtual telehealth visit in lieu of an in person office visit. CARDIOLOGISTS: Antelmo Sharma MD ([facility] Cards) Maria Luz Mejia MD ([facility] Cards - [facility]) Problem List: Aortic valve stenosis: [...] Mild coronary artery disease by [facility] 11/09/2022 I25.10 Heart failure with reduced [...] notable for coronary artery protection given low hpwit-oh-maowngag distance. There was no obstruction post Valve [...] had a very reassuring recent echo in [facility], in scanned docs. LVEF 55%. [...] leads Confirmed by MD Harshil, Haris Bell ([id number]) on 05/10/2023 8:11:46 AM Cardiac Cath 11/09/2022 [...] in one year. EKATERINA Thompson Time spent: 3178VNX6 0-5min 4732GQG9 6-10min 5615KRH7 11-15min x 4639IDK0 16-20min 4420VQC8 21-30min 7555DPN7 31-40min 4057QEO0 40+ min Jay Maza PA-C Interventional Cardiology [facility] Pager [phone] documented in this encounter Plan of Treatment Upcoming Encounters Date Type Department Care Team (Late st Contact Info) Description 05/12/2024 9:00 AM EDT Appointment [place] [address] 05/12/2024 10:00 AM EDT Office Visit [place] [address] [facility] [facility] [address] HEMATOLOG[place] [address] 03/01/2025 4:15 PM EDT Office Visit Dermatology at [place] [address] [place] [address] Marek Bonilla MD [address], [place] [address] documented as of this encounter Visit Diagnoses Diagnosis Aortic valve stenosis, etiology of cardiac valve disease unspecified Coronary artery disease, unspecified vessel or lesion type, unspecified whether angina present, unspecified whether [place] or transplanted heart documented in this encounter Care Teams Semiconductor Wafers Marker Relationship Specialty Start Date End Date Magdalena [place] MD [address] [place] [address] PCP - General Family Medicine 02/05/23 documented as of this encounter
--- OUTSIDE RECORDS SUMMARY | 2024-04-25 16:14 | XMS_ITS | Encounter Summary ---
Author Organization [facility] Address [address] [place] [address] Care Team Providers Care Consultants Intern Name Role Phone Unavailable Primary Care Provider Unavailabl e Encounter Details Date Type Department Care Team (Late st Contact Info) Description 04/20/2005 Results Only [facility] [address] [place] [address] Ziggy Valiente MD [address] [place] [phone] Social History Tobacco Use Types Packs/Day Years [...] ? 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 Accession #: ? [id number] ? : ? 1955 (Age: 49) ??F [...] correlation with endoscopic appearance is recommended. (Dr. Chino)/[facility] Document reviewed and electronically signed [...] is entirely submitted in one cassette. ??(Arabella Santos)/[facility] End of Report PAUL ARELLANO 04/20/2005 04/21/2005 15: 04 EDT Ziggy Valiente MD PATHOLOGY ORDERABLES PAUL ARELLANO [address] [place] [address] documented in this encounter Visit Diagnoses Not on filedocumented in this encounter
--- OUTSIDE RECORDS SUMMARY | 2024-04-25 16:14 | XMS_ITS | Clinical Summary ---
Author Organization [facility] Address [facility] [place] [address] Care Team Providers Care Animal Sitter Name Role Phone Magdalena Acosta MD Primary Care Provider [phone] Allergies No known active allergies Medications Medication [...] fraction 05/08/2023 Mild coronary artery disease by [facility] 11/09/2022 Heart failure with reduced [...] Description 04/11/2024 Transcribe Orders eDH Incoming Referrals [phone] Consuelo Guerrero, DO Anemia, unspecified type 03/01/2024 Telephone Cardiology at [address] [address] Cynthia Monsalve RN Pre Procedure Call (DAPT hold for EGD and colo?) 02/22/2024 4:15 PM EDT Office Visit Dermatology at [address] [place] [address] Marek Bonilla MD Seborrheic keratosis; Rosacea; Nevus [...] EDT Appointment Hematology [place] [address] 05/12/2024 10:00 AM EDT Office Visit Hematology [place] [address] Markel Borjas MD [facility] [address] [place] [address] 03/01/2025 4:15 PM EDT Office Visit Dermatology at [place] [address] [place] [address] Marek Bonilla MD [address], [place] [address] Health Maintenance Due Date Last Done Comments CT Colonography 1955 Colonoscopy 1955 Colorectal Cancer Screening 1955 FIT DNA 1955 FIT 1955 Sigmoidoscopy (10 year) with FIT yearly 1955 Sigmoidoscopy 1955 Pneumoccocal Vaccine: 65+ (1 of 2 - PCV) 1961 Hepatitis C Screening 1973 Tetanus/Diphtheria/Pertussis Vaccines (1 - Tdap) 1974 Zoster vaccine (1 of 2) 1974 [...] 06/05/2036 06/05/2021 Medical Devices Implanted Type Area Advance Seal Delivery System Maintainer Device Identifier Shelf Expiration Date Model / Serial / Lot Valve,Aor,Pericar d,Magna,25mm ([id number]) - [id number] Implanted:Qty: 1 on 09/21/2016 by Alirio Esparza MD at [facility] IMPLANTS N/A: Heart DO NOT USE [employer] - [id number] 06/02/2020 [id number] / / [id number] Cable,Blnt,Ss,38i n ([id number]) - [id number] Implanted:Qty: 4 on 09/21/2016 by Alirio Esparza MD at [facility] IMPLANTS N/A: Chest [employer] - [id number] 04/29/2021 [id number] / / [id number] Patch,Cav,Pericar d,2x5cm ([id number]) (Autoreq) - [id number] Implanted:Qty: 1 on 09/21/2016 by Alirio Esparza MD at [facility] IMPLANTS N/A: Heart DO NOT USE [employer] - [id number] 04/21/2018 [id number] / / [id number] Tavr-05/12/2023 Implanted:Qty: 1 on 05/12/2023 by Antelmo Sharma MD Other Heart [employer] - JAIME LI [id number] / [id number] / Description:JAIME [employer] NCES ABBY 3 ULTRA [...] EST) Glucose 93 65 - 199 mg/dL [facility] Comment:Diabetes: >=200 mg/d L plus symptoms Blood Urea Nitrogen 19(H) 8 - 18 mg/dL [facility] Creatinine 0.81 0.70 - 1.20 mg/dL [facility] Sodium 142 135 - 145 mmol/L [facility] Potassium 3.8 3.5 - 5.0 mmol/L [facility] Comment: Please note: ??Patients with WBC >100,000 may have falsely elevated Potassium levels. ??For accurate Potassium quantification in these patients send serum separator tube (gold top) for subsequent determinations. ??Contact the Clinical Chemistry Laboratory if there are any questions. Chloride 104 98 - 107 mmol/L [facility] Carbon Dioxide 26 22 - 31 mmol/L [facility] Anion Gap 12 5 - 15 mmol/L [facility] Calcium 10.2 8.5 - 10.5 mg/dL [facility] Protein, Total 7.4 6.1 - 8.0 g/dL [facility] Albumin 4.1 3.2 - 5.2 g/dL [facility] Aspartate Aminotransferase 24 0 - 30 unit/L [facility] Alanine Aminotransferase 12 0 - 30 unit/L [facility] Alkaline Phosphatase 93 35 - 105 unit/L [facility] Bilirubin, Total 0.3 0.2 - 1.3 mg/dL [facility] Est Glomerular Filtration Rate 80 >=60 mL/min/1. 73 m?? [facility] Comment: This patient's estimated GFR [...] Lab Alirio Esparza MD CHEMISTRY ORDERABLE S [facility] [place] [address] * DXA Central Spine, Hip, and/or Whole Body (Generic) (06/05/2021 11:58 AM EDT) PT CLASS O RAD ADMITDTTM RAD PT RAD INFO [id number]^E VERETT^DEBORAH ^E RAD EXAM DESC XDXAC^DEXA SCAN [...] who have questions please contact the health campground caretaker that requested your imaging first. ? Electronically signed by: Rocael Villatoro MD, [facility] ([phone]), at 06/05/2021 12:00 PM Narrative 06/05/2021 12:00 [...] patients who have questions please contactthe health campground caretaker that requested your imaging first. Electronically signed by: Rocael Villatoro MD, [facility]([phone]), at 06/05/2021 12:00 PM Deborah Quiroga SENIOR TECHNICAL WRITER IMG DEXA ORDERABLES * Mammo Screening Cad Bilateral (06/05/2021 11:42 AM EDT) PT CLASS O RAD ADMITDTTM RAD PT RAD INFO [id number]^EV ERETT^DEBORAH^E RAD EXAM DESC MADDSC^SCREEN MAMMO BL [...] who have questions please contact the health campground caretaker that requested your imaging first. ? Electronically signed by: Rocael Villatoro MD, [facility] ([phone]), at 06/05/2021 1:27 PM Narrative 06/05/2021 1:27 [...] patients who have questions please contactthe health campground caretaker that requested your imaging first. Electronically signed by: Rocael Villatoro MD, [facility]([phone]), at 06/05/2021 1:27 PM Deborah Quiroga APRN [...] capacity to make decision: Yes Care Teams Animal Sitter Relationship Specialty Start Date End Date Magdalena Acosta MD [address] [place] [address] PCP - General Family Medicine 02/05/23
--- OUTSIDE RECORDS SUMMARY | 2024-04-25 16:14 | XMS_ITS | Encounter Summary ---
Author Organization [facility] [place] [address] Care Team Providers Care Systems Eng Name Role Phone Magdalena Acosta MD Primary Care Provider [phone] Encounter Details Date Type Department Care Team (Late st Contact Info) Description 05/27/2023 Refill Cardiology at [address] [phone] Vero Marrero, RN Social History Tobacco Use Types Packs/Day Years Used Date Smoking Tobacco: Never Smokeless Tobacco: Never Alcohol Use Standard Drinks/Week Comments No 0 (1 standard drink = 0.6 oz pur e alcohol) none [facility] Inpatient Questions Answer Date Recorded Does Anyone [...] PM EDT TC to Nurse Sosa at [facility] to relay response from Jay [...] after that 75mg once daily. Jay Marrero substance addiction coordinator Clinic at [facility] [address] * Telephone Encounter - Vero Marrero RN - 05/27/2023 1:46 PM EDT VM received from triage nurse Sosa at [facility] stating patient was seen today [...] possible. Vero Marrero RN Cardiology Clinic at [facility] [address] documented in this encounter Plan of Treatment Upcoming Encounters Date Type Department Care Team (Late st Contact Info) Description 05/12/2024 9:00 AM EDT Appointment Hematology [place] [address] 05/12/2024 10:00 AM EDT Office Visit Hematology [place] [address] Markel Borjas MD [facility] HEMATOLOGY [place] [address] 03/01/2025 4:15 PM EDT Office Visit Dermatology at [address] [address] Marek Bonilla MD [address], [place] [address] documented as of this encounter Visit Diagnoses Diagnosis Aortic valve stenosis, etiology of cardiac valve disease unspecified documented in this encounter Care Teams Systems Eng Relationship Specialty Start Date End Date Magdalena Acosta MD [address] [place] [address] PCP - General Family Medicine 02/05/23 documented as of this encounter
--- OUTSIDE RECORDS SUMMARY | 2024-04-25 16:14 | XMS_ITS | Encounter Summary ---
Author Organization [facility] [place] [address] Care Team Providers Care Vegetable Picker Name Role Phone Magdalena Acosta MD Primary [...] EDT Appointment Hematology [place] [address] 05/12/2024 10:00 AM EDT Office Visit Hematology [place] [phone] Markel Borjas MD [facility] [address] HEMATOLOGY [place] [address] 03/01/2025 4:15 PM EDT Office Visit Dermatology at [place] [address] [place] [address] Marek Bonilla MD [address], [address] [place] [address] documented as of this encounter Visit Diagnoses Not on filedocumented in this encounter Care Teams Vegetable Picker Relationship Specialty Start Date End Date Magdalena Acosta MD [address] [place] [address] PCP - General Family Medicine 02/05/23 documented as of this encounter
--- OUTSIDE RECORDS SUMMARY | 2024-04-25 16:14 | XMS_ITS | Encounter Summary ---
Author Organization [facility] Address [address] [place] [address] Care Team Providers Care Rubber Stamp Dies Inspector Name Role Phone Ashley Chavez Primary Care Provider [phone] Encounter Details Date Type Department Care Team (Late st Contact Info) Description 04/29/[address] [facility] Pathology & Laboratory Medicine - [address] [address] Outr Resulting Lab, Provider Social History Tobacco [...] Antibody 1.6 <20.0 Units 04/30/2022 12:[address] [facility] Comment: ? Negative: <20.0 [...] A ND SEROLOGY ORDERABLES Performing Organization Address [facility] de Phone Number [facility] [address] [place] [address] * SSA ANTIBODIES BY DOMO (04/29/2022 7:51 EDT) SSA Antibody 1.5 <20.0 Units 04/30/2022 12:[address] [facility] Comment: ? Negative: <20.0 [...] ND SEROLOGY ORDERABLES Performing Organization Address [facility] de Phone Number [facility] [address] [place] [address] documented in this encounter Visit Diagnoses Not on filedocumented in this encounter Care Teams Rubber Stamp Dies Inspector Relationship Specialty Start Date End Date Ashley Chavez ARNP [address] [place] [address] PCP - General 07/11/10 documented as of this encounter
--- OUTSIDE RECORDS SUMMARY | 2024-04-25 16:14 | XMS_ITS | Encounter Summary ---
Author Organization [facility] [place] [address] Care Team Providers Care Administrative Support Technician Name Role Phone Magdalena Acosta MD Primary Care Provider [phone] Reason for Visit * Reason Comments Coronary Artery Disease Hypertension Aortic Stenosis Encounter Details Date Type Department Care Team (Latest Contact Info) Description 07/20/2023 4:40 PM EST TH Visit (TeleHealth) Cardiology at [address] [address] Jay Maza PA [facility] [address] HFrEF (heart failure with reduced ejection fraction); [...] Maza PA - 07/20/2023 4:40 PM EST [facility] Heart & Vascular [...] lieu of an in person office visit. Repair Clerk: Antelmo Sharma MD ([facility] Cards) Maria Luz Mejia MD ([facility] cards) Problem List: : prior surgical [...] Mild coronary artery disease by [facility] 11/09/2022 I25.10 Heart failure with [...] notable for coronary artery protection given low wbrpu-pr-yddrulop distance. There was no obstruction post Valve deployment, but the stent could not be removed safely, so it was deployed. 4.0 mm x 30mm in left main. She was loaded on brilinta aka ticagrelor. Immediately post valve deployment, chest compressions to circulate central epinephrine which was administered given her hypotension, low LVEF, and low cardiac reserve. Next, the patient was transferred to [facility] for pressor and inotropic support. Pressors weaned overnight. Cardiac indices by thermodilution remained greater than 3 with continued Milrinone 0.125 mcg/kg/min. EKG the next day with NSR with stable AK/QRS intervals. Hemoglobin 7.8 [...] arms and wrists. Successful right transfemoral TAVR Uapyx-pb-Guhkt with a 23 mm Lai 3 THV. [...] Completion angiography demonstrated a satisfactory result with ANREL-3 flow and no residual obstruction. Brief ROS: [...] leads Confirmed by MD Harshil, Haris Bell ([id number]) on 05/10/2023 8:11:46 AM Cardiac Cath 11/09/2022 [...] in chart review and direct patient contact. [id number] 0-5min 4917ZUD0 6-10min 3092DMV4 11-15min 0199ZJM6 16-20min x 7569ZTG9 21-30min 4115OPO1 31-40min 4206TRS5 40+ min Jay Maza PA-C Interventional Cardiology [facility] Heart and Vascular [facility] Pager [phone] documented in this encounter Plan of Treatment Upcoming Encounters Date Type Department Care Team (Late st Contact Info) Description 05/12/2024 9:00 AM EDT Appointment Hematology [place] [address] 05/12/2024 10:00 AM EDT Office Visit Hematology [place] [address] Markel Borjas MD [facility] [address] HEMATOLOGY [place] [address] 03/01/2025 4:15 PM EDT Office Visit Dermatology at [place] [address] [place] [address] Marek Bonilla MD [address] [place] [address] documented as of this encounter Visit Diagnoses Diagnosis HFrEF (heart failure with reduced ejection fraction) Hypertension, unspecified type Aortic valve stenosis, etiology of cardiac valve disease unspecified documented in this encounter Care Teams Administrative Support Technician Relationship Specialty Start Date End Date Magdalena Acosta MD [address] [place] [address] PCP - General Family Medicine 02/05/23 documented as of this encounter
--- OUTSIDE RECORDS SUMMARY | 2024-04-25 16:14 | XMS_ITS | Encounter Summary ---
Author Organization [facility] Address [address] [place] [address] Care Team Providers Care Wire Inspector Name Role Phone Unavailable Primary Care Provider Unavailabl e Encounter Details Date Type Department Care Team (Late st Contact Info) Description 07/08/2010 10:55 EST - 07/08/2010 10:56 EST Hospital Encounter [facility] - Other [address] [place] [address] Ashley Chavez, WILLIAM [address] [place] [address] Discharge Disposition: Home or Self Care Social [...]
[2024-04-25 16:15] VITALS: BP 99/58; PULSE 98
--- OUTSIDE RECORDS SUMMARY | 2024-04-25 16:15 | XMS_ITS | Encounter Summary ---
Author Organization [facility] Address [facility] [place] [address] Care Team Providers Care 6Th Grade Teacher Name Role Phone Magdalena Acosta MD Primary Care Provider [phone] Reason for Referral * Diagnostic Test (Routine) - Closed Specialty Diagnoses / Procedures Referred By Contac t Referred To Contact Cardiology Diagnoses S/P TAVR (transcatheter aortic valve replacement) Procedures Echocardiogram Transthoracic Vinod Juárez PA [facility] [place] [address] [facility] [place] [address] Referral ID Status Reason Start Date Expiration Date V isits Requested Visits Authorized [id number] Closed Specialty Service Requested 05/22/2023 05/21/2024 1 1 * Home Health Care (Routine) - Closed Specialty Diagnoses / Procedures Referred By Contac t Referred To Contact Diagnoses S/P TAVR (transcatheter aortic valve replacement) Alirio Hudson MD [facility] CARDIOTHORACIC SURGERY [address] [facility] [address] [place] [address] Referral ID Status Reason Start Date Expiration Date V isits Requested Visits Authorized [id number] Closed Consult, Test & Treat 05/22/2023 11/18/2023 999 999 * Consultation (Routine) - Closed Specialty Diagnoses / Procedures Referred By Crispin maxwell Referred To Contact Cardiology Diagnoses S/P TAVR (transcatheter aortic valve replacement) Alirio Hudson MD [facility] C[place]OTHORAC[place] [address] Cardiac Rehab, [address] [place] [address] Referral ID Status Reason Start Date Expiration Date V isits Requested Visits Authorized [id number] Closed Consult, Test & Treat 05/22/2023 11/18/2023 36 36 * Diagnostic Test (Routine) - Closed Specialty Diagnoses / Procedures Referred By Crispin maxwell Referred To Contact Cardiology Diagnoses Aortic valve stenosis, etiology of cardiac valve disease unspecified Procedures Echocardiogram Transthoracic Transesophageal Echocardiogram (YUSRA) Radha Hollins MD [facility] [place] [address] [facility] [place] [address] Referral ID Status Reason Start Date Expiration Date V isits Requested Visits Authorized [id number] Closed Specialty Service Requested 05/11/2023 05/10/2024 1 1 Reason for Visit * Auth/Cert (Routine) Specialty Diagnoses / Procedures Referred By Crispin maxwell Referred To Contact Diagnoses Symptomatic severe aortic stenosis with low ejection fraction NSTEMI, CHF Enrique Chua MD [facility] [place] [address] [facility] Referral ID Status Reason Start Date Expiration Date Visits Re quested Visits Authorized [id number] 1 1 Encounter Details Date Type Department Care Team (Latest Contact Info) Description 05/08/2023 9:14 AM EDT - 05/22/2023 10:46 AM EDT Hospital Encounter Heart and Vascular Unit Level 4 [place] [address] Enrique Chua MD [facility] [place] [address] Juan Luis Gonzalez MD [facility] [place] [address] Radha Hollins MD [facility] [place] [address] Alirio Hudson MD S/P TAVR (transcatheter aortic valve replacement) (Primary Dx); Aortic valve stenosis, etiology of cardiac valve disease unspecified; Symptomatic severe aortic stenosis with low ejection fraction; Heart failure with reduced ejection fraction due to heart valve disease; Mild coronary artery disease by [facility] 11/09/2022; Mixed connective tissue disease; Neck [...] Patient Age: 67 y.o. Birthdate: 1955 Language: Paraguayan Race: White Ethnicity: Not nor Admit Date: 05/08/2023 Discharge Date: 05/22/2023 Attending Physician: Alirio Hudson MD Follow-up Recommendations for Providers: Please continue routine management of cardiovascular risk factors including blood pressure, lipids,glucose, etc. Please note any medication changes. Patient to follow up with PCP, Magdalena Acosta MD, or Primary Recreation Coordinator, Avis Mejia MD, in ~ 7-10 days. Patient to follow up with Water Resources Business Segment Leader, Dr. Antelmo Sharma, in 2 weeks with an EKG, Echo, CBC, and CMP. Patient to follow up with Nephrology, their office to arrange. Myqj-Wiubfe-ny interval: After initial 30 day follow-up appointment , all TAVR patients will follow-up again in one year with an echo. 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 11/09/2022 Heart failure with reduced ejection [...] Tube Placement Right 05/18/2023 Laure Ricks PA [facility] INTERVENTIONL RAD PRG CATH PLMT LEFT HEART CATH & ARTS W/INJ & ANGIO IMG S&I N/A 11/09/2022 CORONARY ANGIOGRAPHY; W [facility],POSSIBLE PCI (WRVU 5.6) performed by Mario Alberto Escobedo MD at [facility] CATH LABS PRG COMBINED RIGHT & LEFT HEART CATH W/INJ L VENTRICULOGRAPHY, IMG S&I N/A 05/12/2023 COMBINED RIGHT & LEFT HEART CATH,INC INJ FOR L VENTRICULOGRAPHY (WRVU 5.99) performed by Antelmo Sharma MD at [facility] CATH LABS PRO AORTOPLAS FOR SUPRAVALV STEN N/A 09/21/2016 @AORTOPLASTY FOR SUPRAVALVULAR STENOSIS (WRVU 29.33) performed by Alirio Hudson MD at [facility] MAIN OR PRO REPLACE AORTIC VALVE (TAVR/FEDERICO)PERC FEMORAL ARTERY APPROACH 05/12/2023 @TRANSCATHETER AORTIC VALVE REPLACEMENT (TAVR), PERCUTANEOUS FEMORAL (WRVU 22.47) performed by Alirio Hudson MD at [facility] CATH LABS PRO REPLACEMENT PROSTHETIC AORTIC VALVE OPEN W CARDIOPULMONARY BYPASS HOMOGRF/STENT N/A 09/21/2016 @REPLACE AORTIC VALVE, OPEN, W\CPB, W\PROSTHETIC VALVE (WRVU 41.32) performed by Alirio Hudson MD at [facility] MAIN OR Prior To Admission Medications [...] Major Procedures/Operations: 05/12/23: Successful right transfemoral TAVR Hzhir-vd-Ypysw with a 23 mm Lai 3 THV. Left coronary protection with left main MINNA. Hospital Course: #Severe prosthetic s/p valve in valve TF TAVR #Low coronary heights s/p left main stent for coronary protection #Type 2 NSTEMI, present on arrival, resolved #Acute decompensated HFrEF #Cardiogenic shock #EVANS / Cardiorenal syndrome Purnima Thacker was admitted to [facility] on 05/08/2023 via the Cardiology Service [...] TAVR and she was brought to the shrimp pond laborer the following morning where Drs. Alirio [...] if you have questions. Please call your Water Resources Business Segment Leader's office if you have any discharge or drainage from your procedural sites. Your Water Resources Business Segment Leader, Dr. Antelmo Sharma and/or the Reservoir Engineering Manager may be reached at . Antibiotic prophylaxis: You will need to take antibiotics prior to many invasive tests and treatments, such as dental cleaning, which should be done every 6 months. Your primary care physician or your dentist can prescribe this medication. Please refer to the card with the [place] [employer] Guidelines for more information. You have been provided with a copy of this card. Please refer to the [place] [employer] Guidelines for more information. Good [...] friends, go to a movie, go to anabaptist, etc. Heavy activities: No hunting, skiing, jogging, [...] should resume a low fat, low cholesterol, [place] [employer] Diet Driving: No restrictions. Shower/Bath: You may shower daily. No baths, soaking, or swimming for the first week. Wound care: Wash the sites daily with soap and rinse well, pat dry. Assess for any signs of infection such as increased redness, pain, warmth or drainage. Please call your track service worker's office if you have any discharge or drainage from your procedural sites. If there is a lot of swelling, apply mamta wraps during the day and remove at bedtime. Elevate your legs when you are sitting. Home oxygen therapy: N/A Follow up appointments: Please schedule a follow-up appointment with your PCP, Magdalena Acosta MD, or Primary Recreation Coordinator in ~ 7-10 days. You have a follow-up appointment with your Water Resources Business Segment Leader, Dr. Antelmo Sharma, in 2 weeks with an EKG, Echo, and labs prior to your appointment. You will need follow-up with Nephrology, their office will arrange. Sozz-Whwssy-qf interval: After initial 30 day follow-up appointment [...] 11:00 AM Magdalena Peralta MD Rheumatology at [facility] Arrive at: [facility]ley Worker Area [address]C [phone] 02/11/2024 2:00 PM Marek Bonilla MD Dermatology at [place] Arrive at: [facility] [address] [phone] Future Orders Complete By Expires Type and Screen Future Surgery, [facility] SAME DAY PROGRAM ONLY) [RWU9324 Custom] 05/11/2023 Process Instructions: This test is intended ONLY for patients with upcoming surgery for testing prior to the day of surgery obtained through the same day program (4V or SDP). For ALL OTHER PATIENTS, order a Type and Screen (FBR240) This order includes the physician order for an ABO Recheck if requested by the Blood Bank. Scheduling Instructions: Comments: Questions: Date of surgery: CBC (with Diff) [APV082 Custom] 06/05/2023 12/05/2023 Process Instructions: INCLUDES: WBC, RBC, Hgb, Hct, Platelets, RBC Indices and Differential Scheduling Instructions: Comments: Questions: Comprehensive metabolic panel (non-fasting) [LAB17 Custom] 06/05/2023 08/20/2023 Process Instructions: INCLUDES: Calcium, T Protein, Albumin, AST, ALT, Alk Phos, T Bili, BUN, Creat, GFR, Glucose, Lytes. Scheduling Instructions: Comments: Questions: Echocardiogram Transthoracic [95021 CPT(R)] 06/05/2023 12/05/2023 Process Instructions: Scheduling Instructions: Questions: Where will study be performed?: [facility] Clinics Does the patient have Congenital Heart Disease?: Does patient require sedation?: GA rationale: EKG 12 Lead [77289 CPT(R)] 06/05/2023 12/05/2023 Process Instructions: Scheduling Instructions: Questions: Which location will this be performed?: [place] Is a rhythm strip needed?: No [facility] Devices [EQ161 Custom] As directed Process Instructions: Scheduling Instructions: Questions: Device Needed: WALKER (E0143) Patient Height (cm): 154.9 cm (5' 0.98) Patient Weight: 75.4 kg (166 lb 3.2 oz) Diagnosis: Unsteady gait when walking Referral to Cardiac Rehab [SYZ635 Custom] As directed Process Instructions: If no progress note charted, please enter Clinical details in comments. Scheduling Instructions: Questions: My question or request is: s/p TAVR. Cardiac rehab at [facility]. Referral to Home Health [REF34 Custom] As directed Process Instructions: If no progress note charted, please enter Clinical details in comments. Scheduling Instructions: Comments: DOCUMENTATION FOR VNA SERVICES PATIENT'S LOCATION: Purnima Thacker [address] [place] [phone] (home) Speech Language Pathologist Travel's Name: Self and brother Raymond In discussion with the attending physician, it is certified that this patient is under his/her careand that MD, or an DISABILITY ADVOCATE, SENIOR CORPORATE ACCOUNTANT, or PA who is working directly with him/her, had a kzcd-fm-jyiq encounter that meets the physician qkrh-we-nfxw encounter requirements with this patient on 05/22/2023. [...] for managing ADLs. HOME HEALTH CARE AGENCY: [facility]. [address] [place] [address] PHONE: [phone] FAX: [phone] Start of care: Ideally 24-48 hours after [...] [address] / [facility] [address] All VNA agencies which cover the area of patient's residence have been reviewed, either verbally joao writing, and patient has chosen the home health care agency noted. Questions: Disciplines Requested: Physical Therapy Occupational Therapy Discharge References/Attachments None Arrangements for VNA/home care: As above. (delete if no VNA) Signed: EKATERINA NAVARRETE [facility] Section of Cardiac Surgery Date: 05/22/2023 CC: Magdalena Acosta MD [place] ParkMario Alberto MD [address] [place] [address] documented in this encounter Discharge Instructions * Patient Instructions* Vinod Juárez PA - 05/22/2023 9:32 AM EDT TAVR Discharge Instructions: Call your doctor if: You have a fever of greater than 101 degrees, shaking chills, if you develop redness or drainage from your procedure sites, or if you have questions. Please call your Water Resources Business Segment Leader's office if you have any discharge or drainage from your procedural sites. Your Water Resources Business Segment Leader, Dr. Antelmo Sharma and/or the Reservoir Engineering Manager may be reached at . Antibiotic prophylaxis: You will need to take antibiotics prior to many invasive tests and treatments, such as dental cleaning, which should be done every 6 months. Your primary care physician or your dentist can prescribe this medication. Please refer to the card with the [place] [employer] Guidelines for more information. You have been provided with a copy of this card. Please refer to the [place] [employer] Guidelines for more information. Good [...] friends, go to a movie, go to anabaptist, etc. Heavy activities: No hunting, skiing, jogging, [...] should resume a low fat, low cholesterol, [place] [employer] Diet Driving: No restrictions. Shower/Bath: You may shower daily. No baths, soaking, or swimming for the first week. Wound care: Wash the sites daily with soap and rinse well, pat dry. Assess for any signs of infection such as increased redness, pain, warmth or drainage. Please call your track service worker's office if you have any discharge or drainage from your procedural sites. If there is a lot of swelling, apply mamta wraps during the day and remove at bedtime. Elevate your legs when you are sitting. Home oxygen therapy: N/A Follow up appointments: Please schedule a follow-up appointment with your PCP, Magdalena Acosta MD, or Primary Recreation Coordinator in ~ 7-10 days. You have a follow-up appointment with your Water Resources Business Segment Leader, Dr. Antelmo Sharma, in 2 weeks with an EKG, Echo, and labs prior to your appointment. You will need follow-up with Nephrology, their office will arrange. Xnyc-Qrznkt-wg interval: After initial 30 day follow-up appointment [...] ins ( tef) Haven Ba, PT Pager: [phone] Physical Therapy Inpatient Rehabilitation Department * Nico [...] 0600 and on the weekends please page [phone]. * Jory Paniagua - 05/20/2023 3:52 PM [...] vomiting Last Bowel Movement: 05/20/23 Jory Paniagua Application Systems Administrator * Rashid Tong, OT - 05/20/2023 3:16 [...] Tube Placement Right 05/18/2023 Laure Ricks PA [facility] INTERVENTIONL RAD PRG CATH PLMT LEFT HEART CATH & ARTS W/INJ & ANGIO IMG S&I N/A 11/09/2022 CORONARY ANGIOGRAPHY; W [facility],POSSIBLE PCI (WRVU 5.6) performed by Mario Alberto Escobedo MD at [facility] CATH LABS PRG COMBINED RIGHT & LEFT HEART CATH W/INJ L VENTRICULOGRAPHY, IMG S&I N/A 05/12/2023 COMBINED RIGHT & LEFT HEART CATH,INC INJ FOR L VENTRICULOGRAPHY (WRVU 5.99) performed by Antelmo Sharma MD at [facility] CATH LABS PRO AORTOPLAS FOR SUPRAVALV STEN N/A 09/21/2016 @AORTOPLASTY FOR SUPRAVALVULAR STENOSIS (WRVU 29.33) performed by Alirio Hudson MD at [facility] MAIN OR PRO REPLACE AORTIC VALVE (TAVR/FEDERICO)PERC FEMORAL ARTERY APPROACH 05/12/2023 @TRANSCATHETER AORTIC VALVE REPLACEMENT (TAVR), PERCUTANEOUS FEMORAL (WRVU 22.47) performed by Alirio Hudson MD at [facility] CATH LABS PRO REPLACEMENT PROSTHETIC AORTIC VALVE OPEN W CARDIOPULMONARY BYPASS HOMOGRF/STENT N/A 09/21/2016 @REPLACE AORTIC VALVE, OPEN, W\CPB, W\PROSTHETIC VALVE (WRVU 41.32) performed by Alirio Hudson MD at [facility] MAIN OR Social History: Patient lives alone. Home Setup: Pt lives on one level with tub shower and three steps to enter. DME: none used INFO PRINT PRESS OPERATOR Baseline ADL/Mobility: Independent with ADLs and IADLs. [...] awareness: WFL Vision & Perception: corrective lenses shipping assistant Communication: WFL Range of motion, strength, coordination: [...] Discharge planning. Total Minutes, Occupational Therapy: 28 ([id number]) OT Evaluation Code Rationale: Diagnosis & Pertinent Co-Morbidities affecting Plan of Care: see PMHx Occupational Profile & Client History: Brief Expanded Extensive x Assessment of Occupational Performance: 1-3 performance deficits 3-5 performance deficits x 5 + performance deficits Clinical Decision Making: Low Moderate High x Clinical decision making of moderate complexity using standardized patient assessment instrument and measurable assessment of functional outcome. Pager: [phone] TONG MIKE OT 05/20/2023 Occupational Therapy Rehabilitation [...] 0600 and on the weekends please page [phone]. * Rylie Rodriguez MD - 05/19/2023 3:59 [...] and plan. Cynthia Blackburn MD Nephrology Pager: [phone] * Diana Espino - 05/19/2023 1:49 PM EDT [facility] Encounter Note Patient Name: Purnima Thacker : [id number] MR#: [id number] Admit Date: 05/08/2023 9:14 AM Hospital Day [...] as stated. Total Minutes, Physical Therapy: 38 ([id number]) Henrik Dale CANDY Navarrete Pager: [phone] Physical Therapy Inpatient Rehabilitation Department * Nico [...] 0600 and on the weekends please page [phone]. * Laure Ricks PA - 05/19/2023 7:56 [...] Ricks PA-C Interventional Radiology IR Team Pager [phone] * Consuelo Espinoza RN - 05/18/2023 4:13 PM EDT ANGIO NURSING DATABASE Name: Purnima Thacker Date of : 1955 AGE: 67 y.o. Address: [address] [place] [phone] (home) Mobile: No relevant phone numbers on [...] fraction I35.0 Mild coronary artery disease by [facility] 11/09/2022 I25.10 Heart failure with reduced [...] and plan. Cynthia Blackburn MD Nephrology Pager: [phone] * Magdalena Puri, ANURAG - 05/18/2023 10:51 AM EDT Images from the original note were not included. [facility] [address] [place], [place] [address] STRUCTURAL HEART DISEASE CONSULTATION NOTE PRIMARY CARE [...] stenosis. She is now status post TAVR Wcvzi-me-Sexvd with a 23 mm Lai 3 THV 05/12/[address] Sharma. Preliminary findings: Successful right transfemoral TAVR Dybvv-nw-Bjlbf with a 23 mm Lai 3 THV. [...] perforation. Interval Events: - 05/12 Transferred to [facility] post- TAVR for pressor/inotropic support (Levo, vaso, [...] ejection fraction Mild coronary artery disease by [facility] 11/09/2022 Heart failure with reduced ejection [...] 10 mg 10 mg Rectal Daily PRN VersaillesMara ernandez APRN melatonin tablet 6 mg 6 [...] stenosis. She is now status post TAVR Csfce-ft-Qasts with a 23 mm Lai 3 THV [...] Magdalena Puri APRN Structural Heart Team Pager [phone] Team Office Please see addendum by Dr. Sharma for final plan and recommendations Associated attestation - Antelmo Sharma MD - 05/19/2023 10:52 PM EDT I have reviewed Magdalena Puri APRN's above history and I agree with the details as written. The assessment and plan were formulated in discussion with me and I agree with them as documented. Antelmo Sharma MD Pager [phone] * Nico Palacios PA - 05/18/2023 8:13 [...] 0600 and on the weekends please page [phone]. * Loli Hernandez, PT - 05/17/2023 5:27 [...] plan as stated. Time IN / OUT: 8310-0699 Total Minutes, Physical Therapy: 54 Billing Code: te-sx2, te-f, gait LOLI HERNANDEZ PT Pager: [phone] Physical Therapy Inpatient Rehabilitation Department * Cynthia [...] Well controlled. Cynthia Blackburn MD Nephrology Pager: [phone] * Mara Serrano, COMMERCIAL FINANCE MANAGER - 05/17/2023 8:26 AM EDT Cardiac Surgery [...] 0600 and on the weekends please page [phone]. * Guerda Del Valle - 05/16/2023 10:44 AM EDT Nutrition Services Note - Low Nutrition Acuity Purnima Thacker is a 67 y.o. female Reason for intervention: hospital day 9 Nutrition Plan: Continue diet order Encourage good PO Lasix and Zofran noted Added special serve: open containers Monitor weight Patient scheduled for a hospital day 9 nutrition evaluation. Judicial Reporter met with pt at bedside. Pt reports that her appetite and PO has much improved since admission. Denies nausea/vomiting or trouble chewing/swallowing. Judicial Reporter provided snack list but pt not interested in adding snacks at this time. Her only concern was that she is worried that she will eat too much which will cause too much pressure in her stomach. Judicial Reporter assured pt and suggested eating smaller but [...] Last Bowel Movement: 05/10/23 Guerda Del Valle Application Systems Administrator * Vinod Juárez PA - 05/16/2023 10:19 [...] 0600 and on the weekends please page [phone]. * Michael Jeffers MD - 05/16/2023 8:11 AM EDT Images from the original note were not included. Hypertension-Nephrology Inpatient Follow-up Purnima Thacker [id number] 1955 ID: 67 y.o. old female seen [...] IRONSAT 12 (L) 05/16/2023 SFOLATE >20.0 07/03/2022 [id number] 07/03/2022 Lab Results Component Value Date [...] Dr. Ayoub. Please contact me at phone: [phone] or pager: [phone] with any questions. Michael Jeffers MD Nephrology [...] -Nephrology consulted, labs and renal US ordered -[place] removed, ambulated around the unit -bilateral pleural [...] 0600 and on the weekends please page [phone]. * Hortencia Cody MD - 05/15/2023 2:07 [...] not included. Hypertension-Nephrology Inpatient Follow-up Purnima Thacker [id number] 1955 ID: 67 y.o. old female seen [...] HGB 7.8 (L) 05/13/2023 SFOLATE >20.0 07/03/2022 [id number] 07/03/2022 Lab Results Component Value Date [...] Dr. Ayoub. Please contact me at phone: [phone] or pager: [phone] with any questions. Michael Jeffers MD Nephrology [...] outlined inthis evaluation. HAVEN BA, PT Pager: [phone] Physical Therapy Inpatient Rehabilitation Department Time IN / OUT: 9269-2752 Total time: Total Minutes, Physical Therapy: 30 [...] 0600 and on the weekends please page [phone]. * Antelmo Sharma MD - 05/14/2023 7:56 AM EDT Images from the original note were not included. [facility] [place] [address] STRUCTURAL HEART DISEASE CONSULTATION NOTE PRIMARY CARE [...] stenosis. She is now status post TAVR Ntgbi-co-Dsesj with a 23 mm Lai 3 THV 05/12/[address] Sharma. Preliminary findings: Successful right transfemoral TAVR Tylhw-ua-Pykre with a 23 mm Lai 3 THV. [...] ejection fraction Mild coronary artery disease by [facility] 11/09/2022 Heart failure with reduced ejection [...] 2 tablet 2 tablet Oral Daily Lorri Chinchlila PA 2tablet at 05/13/23 2104 [START ON [...] stenosis. She is now status post TAVR Awubi-mc-Awgjh with a 23 mm Lai 3 THV [...] Dale ANURAG Kaplan Structural Heart Team Pager [phone] Team Office Please see addendum by Dr. [...] exposure. Nephrology consultationtoday. Antelmo Sharma MD Pager [phone] * Antelmo Cardenas RN - 05/14/2023 5:18 AM EDT Pt AOx4, complaining of mild/moderate generalized pain (states her Meloxicam is effective at home) currently refusing prn oxycodone. NAEON, hemodynamically stable on Milrinone, Maps >65, ST in eaj250's down to NSR with frequent multifocal PVC's. [...] the original note were not included. [facility] [place] [place] [address] STRUCTURAL HEART DISEASE PROGRESS NOTE PRIMARY CARE [...] stenosis. She is now status post TAVR Rtpwi-sh-Nljyp with a 23 mm Lai 3 THV 05/12/[address] Sharma. Preliminary findings: Successful right transfemoral TAVR Puhlg-al-Bxhlm with a 23 mm Lai 3 THV. [...] or perforation. Interval Events: - Transferred to [facility] post- TAVR for pressor/inotropic support (Levo, vaso, [...] ejection fraction Mild coronary artery disease by [facility] 11/09/2022 Heart failure with reduced ejection [...] stenosis. She is now status post TAVR Qqdma-hd-Dfnck with a 23 mm Lai 3 THV [...] Brody Kaplan APRN Structural Heart Team Pager [phone] Team Office Please see addendum by Dr. [...] DAPT moving forward. Antelmo Sharma MD Pager [phone] * Bonita Miguel PA - 05/13/2023 8:30 AM EDT Cardiac Surgery Progress Note Purnima Thacker is a 67 y.o. 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 PMH of s/p tissue AVR (2017), mixed connective tissue disease HTN, HLD, NICOLAS, diverticulosis, rosacea, essential tremor, and depression. 24h Events: From shrimp pond laborer for above procedure Extubated at ~1600 [...] soft b/l, no evidence of hematoma. Tubes/Lines/Drains: [place], RIJ, A-line, Art, PIV Assessment/Plan: 67 y.o. [...] 0600 and on the weekends please page [phone]. * Onelia Schwartz MD - 05/12/2023 1:44 [...] ejection fraction Mild coronary artery disease by [facility] 11/09/2022 Heart failure with reduced ejection [...] FiO2 weaned to 40%. 1105: ABG 7.34/42/73/22 2504-9923: SBT performed and passed on these settings [...] PCP: Magdalena Acosta MD PCP phone number: [phone] Date of Admission: 05/08/2023 ( Hospital Day [...] 1447 PHART -- 7.34* 7.34* -- -- VBT0JYO -- 30* 30* -- -- PO2ART -- 72* 81* -- -- EZQ4ZFG -- 16.0* 15.7* -- -- LACTATEVEN 2.4* 2.7* 2.7* 4.8* 2.9* VBG (Venous Blood Gas) Recent Labs 05/12/23 0700 05/12/23 0318 05/12/2310505/11/23193905/11/23 1447 LACTATEVEN 2.4* 2.7* 2.7* 4.8* 2.9* Mixed Venous Sat Recent Labs 05/12/23 0508 05/12/23 0321 05/12/23 0114 05/12/23 0030 [id number] 30.7 32.7 37.3 25.1 Objective: Vitals Last [...] who have questions please contact the health geriatric care manager that requested your imaging first. Electronically signed by: ALIX RUVALCABA MD, [facility] ([phone]), at 05/10/2023 1:[address] Cardiac for [...] who have questions please contact the health geriatric care manager that requested your imaging first. Electronically signed by: Cullen Narayanan MD, [facility] ([phone]), at 05/11/2023 4:[address] Angiogram Abdomen [...] who have questions please contact the health geriatric care manager that requested your imaging first. Electronically signed by: Eileen Gomes MD, [facility] ([phone]), at 05/11/2023 2:42 PM XR Chest One [...] who have questions please contact the health geriatric care manager that requested your imaging first. Chest [...] who have questions please contact the health geriatric care manager that requested your imaging first. Assessment [...] and inotrope. She is planned for a wkkvw-ox-tpwdt TAVR this morning, which should hopefully improve [...] MD, FACP, FACC Section of Cardiovascular Medicine [facility] Pillowcase Turnercrop and soil scientist [facility] * Noreen Detusch RN - 05/12/2023 5:21 AM EDT 05/12/23 [...] ejection fraction Mild coronary artery disease by [facility] 11/09/2022 Heart failure with reduced ejection [...] 05/11/2023 4:11 PM EDT Reported off to TECH ED TEACHER and pt transferred over in the bed for higher level of care. * Antelmo Sharma MD - 05/11/2023 9:45 AM EDT Images from the original note were not included. [facility] [place] [id number] STRUCTURAL HEART DISEASE CONSULTATION NOTE PRIMARY CARE [...] who had been referred for possible TAVR leecg-fx-imwmw evaluation. Her primary symptoms are of dyspnea [...] [facility]. 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 She states that, [...] ejection fraction Mild coronary artery disease by [facility] 11/09/2022 Heart failure with reduced ejection [...] hour(s)) Lactate, whole blood, send to lab ([facility]) Result Value Ref Range Lactate WB 3.1 (H) 0.5 - 2.2 mmol/L Heparin (unfractionated) Level Result Value Ref Range Heparin UFH Level 0.46 IU/mL Lactate, whole blood, send to lab ([facility]) Result Value Ref Range Lactate WB 1.8 [...] evident in Anterolateral leads Confirmed by MD Harhsil, Enrique Bell ([id number]) on 05/10/2023 8:11:46 AM Cardiac Cath 11/09/2022 [...] to decompensating HFrEF, she was transferred to [facility] this afternoon for further management. TAVR CT imaging support for adequate ileofemoral access. Given her acute deterioration today, will planfor RTF TAVR on 05/12/2023. Brody Kaplan ANURAG Structural Heart Disease Pager [phone] Please see addendum by Dr. Sharma for [...] signed and dated. Antelmo Sharma MD Pager [phone] * Harini Lance MD - 05/11/2023 6:06 AM EDT Images from the original note were not included. Cardiology Progress Note Patient info: Name: Purnima Thacker : 1955 PCP: Magdalena Acosta MD PCP phone number: [phone] Date of Admission: 05/08/2023 ( Hospital Day 3 days ) Attending:Juan Luis Gonazlez MD ID: Purnima Thacker is a 67 [...] who have questions please contact the health geriatric care manager that requested your imaging first. Electronically signed by: ALIX RUVALCABA MD, [facility] ([phone]), at 05/10/2023 1:25 PM TTE: 05/08 -Left [...] 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) Mild coronary artery disease by [facility] 11/09/2022 Hyperlipidemia, unspecified NICOLAS (obstructive sleep [...] PCP: Magdalena Acosta MD PCP phone number: [phone] Date of Admission: 05/08/2023 ( Hospital Day [...] 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) Mild coronary artery disease by [facility] 11/09/2022 Hyperlipidemia, unspecified NICOLAS (obstructive sleep [...] PCP: Magdalena Acosta MD PCP phone number: [phone] Date of Admission: 05/08/2023 ( Hospital Day [...] Gas) No results found for: PHART, PO2ART, SYK9DRO, HDN7FUI Microbiology: Microbiology Results (Last 30 days) No [...] PPx: Diet: Daily Healthy Menu Choices/Cardiac diet ([facility]-Diet) Lines: Peripheral IV Line - [...] 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) Mild coronary artery disease by [facility] 11/09/2022 Hyperlipidemia, unspecified NICOLAS (obstructive sleep [...] fraction I35.0 Mild coronary artery disease by [facility] 11/09/2022 I25.10 Heart failure with reduced ejection fraction due to heart valve disease I50.20, I38 Cardiogenic shock R57.0 S/P TAVR (transcatheter aortic valve replacement) Z95.2 Past Medical History: Diagnosis Date Anemia Past Surgical History: Procedure Laterality Date PRG CATH PLMT LEFT HEART CATH & ARTS W/INJ & ANGIO IMG S&I N/A 11/09/2022 CORONARY ANGIOGRAPHY; W [facility],POSSIBLE PCI (WRVU 5.6) performed by Mario Alberto Escobedo MD at [facility] CATH LABS PRO AORTOPLAS FOR SUPRAVALV STEN N/A 09/21/2016 @AORTOPLASTY FOR SUPRAVALVULAR STENOSIS (WRVU 29.33) performed by Alirio Hudson MD at [facility] MAIN OR PRO REPLACEMENT PROSTHETIC AORTIC VALVE OPEN W CARDIOPULMONARY BYPASS HOMOGRF/STENT N/A 09/21/2016 @REPLACE AORTIC VALVE, OPEN, W\CPB, W\PROSTHETIC VALVE (WRVU 41.32) performed by Alirio Hudson MD at [facility] MAIN OR Social History and Habits: [...] Verio test strips Strip USE DAILY OneTouch DelWinAd Plus Lancet 33 gauge Misc USE DAILY [...] fraction I35.0 Mild coronary artery disease by [facility] 11/09/2022 I25.10 Heart failure with reduced ejection fraction due to heart valve disease I50.20, I38 Cardiogenic shock R57.0 S/P TAVR (transcatheter aortic valve replacement) Z95.2 Past Medical History: Diagnosis Date Anemia Past Surgical History: Procedure Laterality Date PRG CATH PLMT LEFT HEART CATH & ARTS W/INJ & ANGIO IMG S&I N/A 11/09/2022 CORONARY ANGIOGRAPHY; W [facility],POSSIBLE PCI (WRVU 5.6) performed by Mario Alberto Escobedo MD at [facility] CATH LABS PRO AORTOPLAS FOR SUPRAVALV STEN N/A 09/21/2016 @AORTOPLASTY FOR SUPRAVALVULAR STENOSIS (WRVU 29.33) performed by Alirio Hudson MD at [facility] MAIN OR PRO REPLACEMENT PROSTHETIC AORTIC VALVE OPEN W CARDIOPULMONARY BYPASS HOMOGRF/STENT N/A 09/21/2016 @REPLACE AORTIC VALVE, OPEN, W\CPB, W\PROSTHETIC VALVE (WRVU 41.32) performed by Alirio Hudson MD at [facility] MAIN OR Social History and Habits: [...] days, which prompted her to present to [employer]. She also endorses some intermittent retrosternal chest pain with exertion.She endorses some dizziness with exertion, but has not gotten faint or passed out. At [employer] she was noted to be afebrile, blood pressure 105/64, HR 120s, satting 95% on 2L NC. Labs from [employer] are below, of note she had elevated [...] 89/59, which prompted the transfer to us. [employer] labs: CBC - Hgb 10.5 CMP - Cr 1.1 BNP 77729 HsTrop 1358 Lactate 1.6 D-dimer 1183 Interval [...] Code Status: Attempt Cardiopulmonary Resuscitation - Inpatient [facility] Roman Reid MD Internal Medicine PGY-1 Pager [phone], M1-S1 Service Associated attestation - Juan Luis Gonzalez MD - 05/08/2023 10:00 PM EDT Cardiology Attending Addendum Active Hospital Problems Diagnosis Symptomatic severe aortic stenosis with low ejection fraction Heart failure with reduced ejection fraction due to heart valve disease Mild coronary artery disease by [facility] 11/09/2022 Hyperlipidemia, unspecified History of aortic [...] PCP: Magdalena Acosta MD PCP phone number: [phone] Date of Admission: 05/08/2023 ( Hospital Day 0 days ) Attending:Enrique Chua MD ID: Purnima Thacker is a 67 y.o. female w/ PMH of s/p bioprosthetic AVR in 2016 with recent concern for severe restenosis, HTN, HLD, mixed connective tissue disease, who presents in transfer from [employer] with worsening BONILLA and weight gain concerning [...] four days, which promptedher to present to [employer]. She also endorses some intermittent retrosternal chest pain with exertion. She endorses some dizziness with exertion, but has not gotten faint or passed out. At [employer] she was noted to be afebrile, blood pressure 105/64, HR 120s, satting 95% on 2L NC. Labs from [employer] are below, of note she had elevated [...] 89/59, which prompted the transfer to us. [employer] labs: CBC - Hgb 10.5 CMP - Cr 1.1 BNP 93630 HsTrop 1358 Lactate 1.6 D-dimer 1183 Vasoactive [...] tissue disease, who [facility] BONILLA and weight gain concerning for [...] #Routine Diet: Daily Healthy Menu Choices/Cardiac diet ([facility]-Diet) DVT Prophylaxis: heparin gtt GI [...] remains HD stable, can transfer out of [facility]. -Structural Heart consult; will need inpatient TAVR. [...] to the planned procedure. Hand Hygiene: The optical laboratory technician did perform hand hygiene prior to arterial [...] Successful arterial line placement. Crispin Timmons MD Reservoir Engineering Manager Associated attestation - Onelia Schwartz MD - [...] (flow was non-pulsatile) and appearance of blood. Sierra [place]-Marily catheter was placed and locked at 55 [...] to home with family/friend support and Alonso LWO pt will also have FWW delivered to her prior to her d/c. Needs for Transition of Care: Plan for discharge is: Home w/ Services Outpatient Agency/Support Group Needs: Homecare agency Home Health Services: Physical Therapy, Occupational Therapy Agency Referrals & Follow-up Care: Contact information for follow-up Home Health & Hospice, [place] [address] [place] [address] Cardiac Rehab, [facility] [address] [place] [address] [facility] [address] [place] [address] Transportation: family or friend will provide *Brother [...] Type: *No Product type* / Secondary Insurance: [employer] [place] Prescription Coverage: Yes This plan was formulated with input from patient, family (please identify family/friend involved ifapplicable) and team. All are in agreement with plan. Aliza Martino MSN-Ed, RN ACM coremaking supervisor Office of Care Management Pager #[phone] * Plan of Care - Favian Mckeon [...] Chaudhary RN - 05/21/2023 4:46 PM EDTSummary: [facility] referral OFFICE OF CARE MANAGEMENT [...] Type: *No Product type* / Secondary Insurance: [employer] [place] Last Physical Therapy Recommendation: (Home with assist [...] needs. describing our affiliations within the [facility] and educate about their right to choose where referrals are sent. provide a list of Home Health Agencies / Durable Medical Equipment vendors which serve their preferred geographic area. They have requested referrals to: [facility] [address] [place] [address] Ortho Care Located @ [place], [place] Note routed to a Animation Producer who will communicate referrals to facilities and provide any required information. Transportation: family or friend will provide *Brother Raymond on Tuesday 05/22 at 1000 Barriers to discharge: Does not have home 22/02 assist available until tomorrow Tuesday 05/22 Plan going forward: Discharge home into the 22/02 home care of brother Raymond with [facility] and [facility] PT/OT services on Tuesday 05/22 [...] Attending: All Staff: Staff Role Juanita Almaguer Equipment Cleaner Laure Ricks PA Physician Editor & Co Founder Magdalena Rodriguez oracle architect Nurse Consuelo Espinoza, oracle architect Nurse Post-operative diagnosis/Indication: Right pleural effusion Name [...] Type: *No Product type* / Secondary Insurance: [employer] [facility] Last Physical Therapy Recommendation: snf facility, swing [...] to: discuss discharge planning needs. provide the [facility], Office of Care Management letter from the Communication Assistant pertaining to rehab referrals. provide a letter describing our affiliations within the [facility] and educate about their right to choose where referrals are sent. provide the CMS Star Quality Rating handout. review the different levels of rehab including SNF, swing, and acute. provide a list of facilities within their preferred geographic area. request that they provide at least three choices for referral. They have requested referrals to: [facility] [address] [place] [address] [facility]) [address] [place] [address] (Accepts pts only after exhausting all other local SNF options) [facility] ([facility]) ([facility]) [address] [place] [address] PHONE: [phone] FAX: [phone] [facility] [place] ([facility]) [facility]) [address] [place] [address] PHONE: [phone] FAX: [phone] Note routed to a Animation Producer who will communicate referrals to facilities and [...] Crenshaw RN - 05/17/2023 10:25 AM EDT [facility] CARDIAC REHABILITATION Purnima Thacker was [...] from the original note were not included. [facility] NEPHROLOGY/HYPERTENSION CONSULT NOTE PATIENT: Purnima Thacker [...] in her course. She ultimately underwent a tzejs-mm-zqavd procedure on and tolerated it well (see [...] 1423 05/12/23 1105 PHART 7.39 7.37 7.34* WAU4ACX 33* 36 42 PO2ART 101 102 73* NWA1SCR 19.5* 20.4 22.1 LACTATEVEN 1.5 1.8 2.8* RXX8VZJ 40 40 40 PFRATIOART2 252 255 182 VBG (Venous Blood Gas) Recent Labs 05/12/23 1557 05/12/23 1423 05/12/23 1105 LACTATEVEN 1.5 1.8 2.8* Mixed Venous Sat Recent Labs 05/12/23 1425 05/12/23 0508 05/12/23 0321 C0SPMM1 59.9 30.7 32.7 LFT's: Recent Labs 05/14/23 0110 05/13/23 0115 05/12/23 0600 BILITOT 0.4 0.5 0.9 BILIDIR -- 0.3 -- ALBUMIN 3.6 3.0* 3.5 ALKPHOS 86 85 100 ALT 437* 903* 1,174* AST 319* 792* 1,435* No results found for: UPROTCREAT No results found for: TPROTEINPEP, ALBELECT No results found for: MICROALBUR, VGOT42DFF No results found for: HA1C Lab Results Component Value Date CALCIUM 8.5 05/14/2023 PHOS 4.7 (H) 05/08/2023 No results found for: 25OHVITD MICROBIOLOGY: ProcedureComponentValueUnitsDate/TimeUrine culture [[id number]]Collected: 05/11/231921Lab Status: Final resultSpecimen: Clean Catch UrineUpdated: [...] consulted for assessment if this patient needs TAR LEVELER. Atthis time, we can likely hold off on TAR LEVELER. Her volume status appears sufficient and her metabolic kanwal angements with mild acidosis is not too profound. Patient does not have significant uremic symptoms. We can hold off for today, but the patient is a high risk candidate for needing TAR LEVELER in future daysespecially if her Cr curve trends the direction it is for the next several days. S/p Utaws-zq-Lbuie TF TAVR: Management per cardiology. On milrinone gtt. PLAN: - Please obtain following diagnostics: renal US, urinalysis, urine prot/Cr ratio, urine albumin/Cr ratio, CK, uric acid, serum osmol, daily VBGs - No acute indications for TAR LEVELER/dialysis. We will keep close eye on Cr trend, volume status, and metabolics to ensure patient still does not need TAR LEVELER as she ensues intrinsic renal recovery - [...] M.H.A., M.A. PGY-V Nephrology-Hypertension Fellow Page # [phone] [facility] [address] 2nd floor, Alley Worker [address] [place] [address] * Care Management - Mario Alberto Olmos [...] type* / Secondary Insurance: [facility] Plan for discharge is: Home w/o Services [...] for a TAVR at 730. Returned to [facility] at 0945. Was intubated in the shrimp pond laborer due to agitation. Maintained bedrest for [...] Operative Note Patient Name: Purnima Thacker : [id number] MR#: [id number] Case Date: 05/12/2023 Surgeon: Surgeon(s) and Role: [...] procedure Note: Patient Name: Purnima Thacker : [id number] MR#: [id number] Case Date: 05/12/2023 Operators Surgeon: Surgeon(s) and [...] main with 4.0 x 30 mm Resolute [place] Drug Eluting Stent Perclose x1 + Angio-seal 8 Fr x1, RFA Manual pressure, LFA Manual pressure, LFV Endotracheal intubation (performed by cardiac anesthesia) Preliminary findings: Successful right transfemoral TAVR Fgvvf-mq-Pggxv with a 23 mm Lai 3 THV. [...] MD, M.Sc. Structural Heart Disease Fellow Pager :[phone] Antelmo Sharma MD Pager [phone] * Op Note - Alirio Hudson MD - 05/12/2023 7:37 AM EDT Preop Diagnosis: Severe aortic stenosis, symptomatic. Postop Diagnosis: Same. Procedure: Transfemoral TAVR procedure with 23mm valve. Surgeon: Alirio Hudson M.D. Recreation Coordinator: Danny CULP Procedure: The patient was taken to the shrimp pond laborer. The patient had monitored anesthesia care. 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 [...] the original note were not included. [facility] [place] [address] STRUCTURAL HEART DISEASE CONSULTATION NOTE PRIMARY CARE [...] who had been referred for possible TAVR neojs-oi-psxve evaluation. Her primary symptoms are of dyspnea [...] [facility]. 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 PROBLEM LIST: Patient Active Problem List Diagnosis Symptomatic severe aortic stenosis with low ejection fraction Mild coronary artery disease by [facility] 11/09/2022 Heart failure with reduced ejection [...] hour(s)) Lactate, whole blood, send to lab ([facility]) Result Value Ref Range Lactate WB 1.8 [...] leads Confirmed by MD Harshil, Enrique Bell ([id number]) on 05/10/2023 8:11:46 AM Assessment and Plan: [...] Antelmo Sharma MD Structural Heart Disease Pager [phone] * Plan of Care - Sarahi Nice RN - 05/10/2023 3:55 AM EDTSumavis: VALDO Note and Care Plan Sarahi Nice RN assumed care of pt at time of their arrival to room 362 from [facility]. Pt voices shortness of breath at time [...] Transfer from another hospital Location: admitted from [employer] Reason for Hospitalization: Critical aortic stenosis, causing symptoms Past medical History: Past Medical History: Diagnosis Date Anemia Hospitalizations Within the Past 30 Days: no previous admission in last 30 days Current Decision-Making Capacity: Self If AD's have not been completed the following surrogate would be surrogate decision maker per [place] surrogate decision making law. (Only good for 180 days) Any patient receiving care in [place] must abide by [place] law. The hierarchy for surrogate decision making [...] (i) The agent with financial power of trauma program manager or a conservator appointed in accordance with [...] Current DME: none Home Address confirmed as: [address] [place] [id number] Social & Family Supports: All names listed [...] / Secondary Insurance: [facility] [place] ONLY if patient has Medicare A&B - Does this patient have secondary insurance?: Yes ; Prescription Coverage: Yes Preferred Pharmacy: updated to [facility] Status: Patient is a : No Primary Care Provider confirmed: Magdalena Acosta MD [phone] Patient/Caregiver Goals of Treatment: Potential Needs for [...] of a 2 story home with 2 [facility]. Patient is independent with ADL's at baseline [...] of care planning. Alie Bradshaw RN, CM Pager-[phone] * Plan of Care - Emily Lucero RN - 05/08/2023 2:54 PM EDT OUTCOME EVALUATION NOTE: OUTCOME SUMMARY: Pt arrived from [employer]. A&O, no c/o pain or SOB. Heparin [...] AM EDT Appointment Hematology [place] [address] 05/12/2024 10:00 AM EDT Office Visit Hematology [place] [address] Markel Borjas MD [facility] [address] HEMATOLOGY [place] [address] 03/01/2025 4:15 PM EDT Office Visit Dermatology at [place] [address] [place] [id number] Marek Bonilla MD [address] [place]ERMATOLOGY [place], [place] [id number] Scheduled Referrals Name Type Priority Associated Diagnoses [...] Heart Cath W/Inj L Ventriculography, Img S&I (20008) 05/12/2023 7:37 AM EDT Aortic valve stenosis, [...] COLOR DOPP (07/08/2023 12:15 PM EST) Pathologist [facility] EF 20 HEART[employer] SYSTEM Anatomical Region Laterality Modality Cardiac Other 07/08/2023 10:3 1 AM EST Narrative 07/08/2023 12:26 PM EST [address] [place] [id number] ? Echocardiogram Report Name: PURNIMA THACKER ?Study Date: 07/08/2023 10:31 AMBP: 118/60 mmHg ? Patient Location: : 1955 ? Height: 155 cm ? Account: [id number] Age: 67 yrs ? Weight: 74 kg Gender: Female ?BSA: 1.7 m2 Ordering Physician: ALIRIO HUDSON Referring Physician: VINOD JUÁREZ Performed By: Felicia Norris RDCS Reason For Study: S/P TAVR Exam Location: [facility]. Interpretation Summary Left ventricular systolic function [...] no significant change (post-procedure). Procedure Limited - 08567. Doppler - 27592. Color Doppler - 02825. Satisfactory quality. This study is limited because [...] Note Lee Kincaid MD - 07/08/2023 [address] [place] [address] Echocardiogram Report Name: PURNIMA THACKER Study Date: 0:31 AMBP: 118/60 mmHg Patient Location: : 1955 Height: 155 cm Account: [id number] Age: 67 yrs Weight: 74 kg Gender: Female BSA: 1.7 m2 Ordering Physician: ALIRIO HUDSON Referring Physician: VINOD JUÁREZ Performed By: Felicia Norris RDCS Reason For Study: S/P TAVR Exam Location: [facility]. Interpretation Summary Left ventricular systolic function [...] is nosignificant change (post-procedure). Procedure Limited - 32409. Doppler - 91883. Color Doppler - 36492. Satisfactoryquality. This study is limited because of [...] 199 mg/dL [facility] [facility] Comment:Diabetes: >=200 mg/d L plus symptoms Blood Urea Nitrogen 19(H) 8 - 18 mg/dL [facility] Creatinine 0.81 0.70 - 1.20 mg/dL [facility] Sodium 142 135 - 145 mmol/L [facility] Potassium 3.8 3.5 - 5.0 mmol/L [facility] Comment: Please note: ??Patients with WBC >100,000 may have falsely elevated Potassium levels. ??For accurate Potassium quantification in these patients send serum separator tube (gold top) for subsequent determinations. ??Contact the Clinical Chemistry Laboratory if there are any questions. Chloride 104 98 - 107 mmol/L [facility] Carbon Dioxide 26 22 - 31 mmol/L [facility] Anion Gap 12 5 - 15 mmol/L [facility] Calcium 10.2 8.5 - 10.5 mg/dL [facility] Protein, Total 7.4 6.1 - 8.0 g/dL [facility] Albumin 4.1 3.2 - 5.2 g/dL [facility] Aspartate Aminotransferase 24 0 - 30 unit/L [facility] Alanine Aminotransferase 12 0 - 30 unit/L [facility] Alkaline Phosphatase 93 35 - 105 unit/L [facility] Bilirubin, Total 0.3 0.2 - 1.3 mg/dL [facility] Est Glomerular Filtration Rate 80 >=60 mL/min/1. 73 m?? [facility] Comment: This patient's estimated GFR was [...] MD CHEMISTRY ORDERABLE S Performing Organization Address City/State/[facility] Co de Phone Number [facility] [place] [address] * (ABNORMAL) Basic Metabolic Panel (non-fasting) (05/22/2023 3:57 AM EDT) Pathologist [facility] Glucose 88 65 - 199 mg/dL [facility] Comment:Diabetes: >=200 mg/d L plus symptoms Blood Urea Nitrogen 21(H) 8 - 18 mg/dL [facility] Creatinine 0.69(L) 0.70 - 1.20 mg/dL [facility] Sodium 136 135 - 145 mmol/L [facility] Potassium 3.6 3.5 - 5.0 mmol/L [facility] Comment: Please note: ??Patients with WBC >100,000 may have falsely elevated Potassium levels. ??For accurate Potassium quantification in these patients send serum separator tube (gold top) for subsequent determinations. ??Contact the Clinical Chemistry Laboratory if there are any questions. Chloride 102 98 - 107 mmol/L [facility] Carbon Dioxide 23 22 - 31 mmol/L [facility] Anion Gap 11 5 - 15 mmol/L [facility] Calcium 8.6 8.5 - 10.5 mg/dL [facility] Est Glomerular Filtration Rate 95 >=60 mL/min/1. 73 m?? [facility] Comment: This patient's estimated GFR was [...] Lab Mara Maggie OSBORN CHEMISTRY ORDERABL ES [facility] [place] [address] * (ABNORMAL) Basic Metabolic Panel (non-fasting) (05/21/2023 5:06 AM EDT) Pathologist [facility] Glucose 87 65 - 199 mg/dL [facility] Comment:Diabetes: >=200 mg/d L plus symptoms Blood Urea Nitrogen 25(H) 8 - 18 mg/dL [facility] Creatinine 0.84 0.70 - 1.20 mg/dL [facility] Sodium 136 135 - 145 mmol/L [facility] Potassium 3.6 3.5 - 5.0 mmol/L [facility] Comment: Please note: ??Patients with WBC >100,000 may have falsely elevated Potassium levels. ??For accurate Potassium quantification in these patients send serum separator tube (gold top) for subsequent determinations. ??Contact the Clinical Chemistry Laboratory if there are any questions. Chloride 102 98 - 107 mmol/L [facility] Carbon Dioxide 26 22 - 31 mmol/L [facility] Anion Gap 8 5 - 15 mmol/L [facility] Calcium 8.9 8.5 - 10.5 mg/dL [facility] Est Glomerular Filtration Rate 76 >=60 mL/min/1. 73 m?? [facility] Comment: This patient's estimated GFR was [...] Narrative Resulting Agency Comment Spec In Lab [facility], [place] [employer]ANCE MANAGER CHEMISTRY ORDERABL ES Performing Organization Address [facility] Co de Phone Number [facility] [place] [address] * Lavender Tube HOLD (05/20/2023 2:52 AM EDT) Lavender Hold Sample in lab. [facility] Blood Venous Draw / Unknown 05/20/2023 2:52 AM EDT 05/20/2023 3:04 AM EDT [facility], [place] [employer]CIAL FINANCE MANAGER HEMATOLOGY ORDERAB LES Performing Organization Address [facility] Co de Phone Number [facility] [place] [address] * (ABNORMAL) Basic Metabolic Panel (non-fasting) (05/20/2023 2:52 AM EDT) Glucose 152 65 - 199 mg/dL [facility] Comment:Diabetes: >=200 mg/d L plus symptoms Blood Urea Nitrogen 33(H) 8 - 18 mg/dL [facility] Creatinine 0.82 0.70 - 1.20 mg/dL [facility] Sodium 137 135 - 145 mmol/L [facility] Potassium 3.7 3.5 - 5.0 mmol/L [facility] Comment: Please note: ??Patients with WBC >100,000 may have falsely elevated Potassium levels. ??For accurate Potassium quantification in these patients send serum separator tube (gold top) for subsequent determinations. ??Contact the Clinical Chemistry Laboratory if there are any questions. Chloride 99 98 - 107 mmol/L [facility] Carbon Dioxide 22 22 - 31 mmol/L [facility] Anion Gap 16(H) 5 - 15 mmol/L [facility] Calcium 9.0 8.5 - 10.5 mg/dL [facility] Est Glomerular Filtration Rate 78 >=60 mL/min/1. 73 m?? [facility] Comment: This patient's estimated GFR was [...] Agency Comment Spec In Lab Mara [place] COMMERCIAL FINANCE MANAGER CHEMISTRY ORDERABL ES Performing Organization Address [facility] Co de Phone Number [facility] [place] [address] * (ABNORMAL) Potassium (05/20/2023 2:52 AM EDT) [facility] Signature Potassium 3.4(L) 3.5 - 5.0 mmol/L [facility] Comment: Please note: ??Patients with WBC >100,000 may have falsely elevated Potassium levels. ??For accurate Potassium quantification in these patients send serum separator tube (gold top) for subsequent determinations. ??Contact the Clinical Chemistry Laboratory if there are any questions. Blood 05/20/2023 2:52 AM EDT 05/20/2023 3:03 AM EDT Narrative Resulting Agency Comment Spec In Lab Mara [place] COMMERCIAL FINANCE MANAGER CHEMISTRY ORDERABL ES Performing Organization Address City/[facility] Co de Phone Number [facility] [place] [address] * XR Chest PA & Lateral (Generic) [...] who have questions please contact the health geriatric care manager that requested your imaging first. ? Electronically signed by: Chyna Johnson MD, [facility] ??([phone]), at 05/19/2023 2:19 PM Narrative 05/19/2023 2:19 [...] patients who have questions please contactthe health geriatric care manager that requested your imaging first. Electronically signed by: Chyna Johnson MD, [facility]([phone]), at 05/19/2023 2:19 PM Alirio Hudson MD IMG DX ORDERABLES * (ABNORMAL) Basic Metabolic Panel (non-fasting) (05/19/2023 5:49 AM EDT) Glucose 93 65 - 199 mg/dL [facility] Comment:Diabetes: >=200 mg/d L plus symptoms Blood Urea Nitrogen 45(H) 8 - 18 mg/dL [facility] Creatinine 1.02 0.70 - 1.20 mg/dL [facility] Sodium 138 135 - 145 mmol/L [facility] Potassium 3.9 3.5 - 5.0 mmol/L [facility] Comment: Please note: ??Patients with WBC >100,000 may have falsely elevated Potassium levels. ??For accurate Potassium quantification in these patients send serum separator tube (gold top) for subsequent determinations. ??Contact the Clinical Chemistry Laboratory if there are any questions. Chloride 102 98 - 107 mmol/L [facility] Carbon Dioxide 26 22 - 31 mmol/L [facility] Anion Gap 10 5 - 15 mmol/L [facility] Calcium 9.7 8.5 - 10.5 mg/dL [facility] Est Glomerular Filtration Rate 60 >=60 mL/min/1. 73 m?? [facility] Comment: This patient's estimated [...] Agency Comment Spec In Lab Mara Serrano COMMERCIAL FINANCE MANAGER [place] [address] * IR Chest Tube Placement Right (05/18/2023 [...] EDT) Glucose 95 65 - 199 mg/dL [facility] Comment:Diabetes: >=200 mg/d L plus symptoms Blood Urea Nitrogen 71(H) 8 - 18 mg/dL [facility] Comment:result rechecked-[facility] Creatinine 1.64(H) 0.70 - 1.20 mg/dL [facility] Comment:result rechecked-[facility] Sodium 137 135 - 145 mmol/L [facility] Potassium 3.7 3.5 - 5.0 mmol/L [facility] Comment: Please note: ??Patients with WBC >100,000 may have falsely elevated Potassium levels. ??For accurate Potassium quantification in these patients send serum separator tube (gold top) for subsequent determinations. ??Contact the Clinical Chemistry Laboratory if there are any questions. Chloride 100 98 - 107 mmol/L [facility] Carbon Dioxide 24 22 - 31 mmol/L [facility] Anion Gap 13 5 - 15 mmol/L [facility] Calcium 9.7 8.5 - 10.5 mg/dL [facility] Est Glomerular Filtration Rate 34(L) >=60 mL/min/1. 73 m?? [facility] Comment: This patient's estimated GFR was [...] Agency Comment Spec In Lab Mara Serrano COMMERCIAL FINANCE MANAGER CHEMISTRY ORDERABL ES [facility] [place] [address] * XR Chest PA & Lateral (Generic) [...] who have questions please contact the health geriatric care manager that requested your imaging first. [...] patients who have questions please contactthe health geriatric care manager that requested your imaging first. Electronically signed by: Ghassan Reyes MD, [facility]([phone]), at 05/17/2023 11:46 AM Alirio Hudson MD IMG DX ORDERABLES * (ABNORMAL) Comprehensive metabolic panel (non-fasting) (05/17/2023 4:35 AM EDT) Glucose 89 65 - 199 mg/dL [facility] Comment:Diabetes: >=200 mg/d L plus symptoms Blood Urea Nitrogen 97(H) 8 - 18 mg/dL [facility] Creatinine 2.97(H) 0.70 - 1.20 mg/dL [facility] Comment:result rechecked-[facility] Sodium 135 135 - 145 mmol/L [facility] Potassium 4.1 3.5 - 5.0 mmol/L [facility] Comment: Please note: ??Patients with WBC >100,000 may have falsely elevated Potassium levels. ??For accurate Potassium quantification in these patients send serum separator tube (gold top) for subsequent determinations. ??Contact the Clinical Chemistry Laboratory if there are any questions. Chloride 97(L) 98 - 107 mmol/L [facility] Carbon Dioxide 22 22 - 31 mmol/L [facility] Anion Gap 16(H) 5 - 15 mmol/L [facility] Calcium 9.6 8.5 - 10.5 mg/dL [facility] Protein, Total 6.5 6.1 - 8.0 g/dL [facility] Albumin 3.7 3.2 - 5.2 g/dL [facility] Aspartate Aminotransferase 58(H) 0 - 30 unit/L [facility] Alanine Aminotransferase 66(H) 0 - 30 unit/L [facility] Alkaline Phosphatase 86 35 - 105 unit/L [facility] Bilirubin, Total 0.6 0.2 - 1.3 mg/dL [facility] Est Glomerular Filtration Rate 17(L) >=60 mL/min/1. 73 m?? [facility] Comment: This patient's estimated GFR was [...] ORDERABLE S [facility] [place] [address] * Potassium (05/16/2023 11:15 PM EDT) Potassium 3.7 3.5 - 5.0 mmol/L [facility] Comment: Please note: ??Patients with WBC [...] S Performing Organization Address [facility]/ZIP Co de Phone Number [facility] [place] [address] * Magnesium (05/16/2023 5:22 PM EDT) Pathologist [facility] Magnesium 0.96 0.69 - 1.07 mmol/L [facility] Blood 05/16/2023 5:22 PM EDT 05/16/2023 5:27 PM EDT Narrative Resulting Agency Comment Spec In Lab Alirio Hudson MD CHEMISTRY ORDERABLE S Performing Organization Address [facility] Co de Phone Number [facility] [place] [address] * (ABNORMAL) Basic Metabolic Panel (non-fasting) (05/16/2023 5:22 PM EDT) Pathologist [facility] Glucose 106 65 - 199 mg/dL [facility] Comment:Diabetes: >=200 mg/d L plus symptoms Blood Urea Nitrogen 103(H) 8 - 18 mg/dL [facility] Creatinine 3.91(H) 0.70 - 1.20 mg/dL [facility] Comment:result rechecked-imm Sodium 132(L) 135 - 145 mmol/L [facility] Potassium 3.6 3.5 - 5.0 mmol/L [facility] Comment: Please note: ??Patients with WBC >100,000 may have falsely elevated Potassium levels. ??For accurate Potassium quantification in these patients send serum separator tube (gold top) for subsequent determinations. ??Contact the Clinical Chemistry Laboratory if there are any questions. Chloride 92(L) 98 - 107 mmol/L [facility] Carbon Dioxide 22 22 - 31 mmol/L [facility] Anion Gap 18(H) 5 - 15 mmol/L [facility] Calcium 9.7 8.5 - 10.5 mg/dL [facility] Est Glomerular Filtration Rate 12(L) >=60 mL/min/1. 73 m?? [facility] Comment: This patient's estimated GFR was [...] Address City/[facility]/ZIP Co de Phone Number [facility] [place] [address] * (ABNORMAL) Potassium (05/16/2023 11:43 AM EDT) Potassium 3.3(L) 3.5 - 5.0 mmol/L [facility] Comment: Please note: ??Patients with WBC [...] Address City/[facility]/ZIP Co de Phone Number [facility] [place] [address] * (ABNORMAL) Ferritin (05/16/2023 4:41 AM EDT) Pathologist [facility] Ferritin 1,813(H) 30 - 400 ng/mL [facility] Comment: Pediatric reference ranges not verified at [facility], interpret with caution. Reference ranges for females greater than 50 years of age approach values for men, i.e., 30-400 ng/mL. Blood 05/16/2023 4:41 AM EDT 05/16/2023 4:54 AM EDT Narrative Resulting Agency Comment Spec In Lab Kristopher Ayoub MD CHEMISTRY ORDERABLES [facility] [place] [address] * (ABNORMAL) PTH (05/16/2023 4:41 AM EDT) [facility] Parathyroid Hormone 120(H) 15 - 65 pg/mL [facility] Blood 05/16/2023 4:41 AM EDT 05/16/2023 4:54 AM EDT Narrative Resulting Agency Comment Spec In Lab Kristopher Ayoub MD CHEMISTRY ORDERABLES [facility] [place] [address] * Vitamin D, 25-Hydroxy (05/16/2023 4:41 AM EDT) [facility] Vitamin D Total 25 OH 33 21 - 100 ng/mL [facility] Vit D Interp Sufficient [facility] Blood 05/16/2023 4:41 AM EDT 05/16/2023 4:54 AM EDT Narrative Resulting Agency Comment Spec In Lab Kristopher Ayoub MD CHEMISTRY ORDERABLES [facility] [place] [address] * (ABNORMAL) Blood Gas Venous ([facility]) (05/16/2023 4:22 AM EDT) pH, Venous 7.41 7.32 - 7.42 [facility] PCO2, Venous 32(L) 41 - 51 mmHg [facility] PO2, Venous 73(H) 25 - 40 mmHg [facility] Bicarbonate, Venous 19.6 mmol/L [facility] Base Excess, Venous -5.1 mmol/L [facility] Hgb Blood Gas 9.7(L) 11.7 - 15.5 g/dL [facility] Oxyhemoglobin, Venous 92.8 % [facility] Carboxyhemoglob in, Venous 0.1 % [facility] Comment: Nonsmokers: 0.5-1.5% COHB Smokers: Variable, but usually less than 10% Toxic: 20-30% COHB Lethal: Greater than 60% COHB Methemoglobin, Venous 0.3 <=1.5 % [facility] Na Whole Blood 130(L) 135 - 145 mmol/L [facility] K Whole Blood 3.7 3.5 - 5.0 mmol/L [facility] Comment: Please note: Patients with WBC >100,000 may have falsely elevated Potassium levels. Contact the Clinical Chemistry Laboratory if there are any questions. ICa Whole Blood 1.15 1.15 - 1.33 mmol/L [facility] Comment: Note: ??Total bilirubin higher than 20 mg/dL may lead to falsely low ionized calcium. CL Whole Blood 95(L) 98 - 107 mmol/L [facility] Gluc Whole Bld 82 65 - 199 mg/dL [facility] Comment:Diabetes: >=200 mg/d L plus symptoms Lactate WB 1.1 0.5 - 2.2 mmol/L [facility] Blood Gas Source Venous [facility] Blood Venous Draw / Unknown 05/16/2023 4:22 AM EDT 05/16/2023 4:31 AM EDT Narrative Resulting Agency Comment Spec In Lab Bonita TOBAR CHEMISTRY ORDERABLES [facility] [place] [address] * (ABNORMAL) Differential, Automated (05/16/2023 4:20 AM EDT) Neutrophil % 84.1 % [facility] Neutrophil Absolute 6.22(H) 1.70 - 6.10 x10(3)/mc L [facility] Lymph % 5.8 % [facility] Lymphocytes Abs 0.4(L) 0.9 - 3.2 x10(3)/mc L [facility] Monocyte % 8.8 % [facility] Monocyte Abs 0.6 0.3 - 0.9 x10(3)/ L [facility] Eos % 0.4 % [facility] Eosinophils Abs 0.0 0.0 - 0.4 x10(3)/mc L [facility] Basophil % 0.0 % [facility] Baso Absolute 0.0 0.0 - 0.1 x10(3)/ L [facility] Immature Gran % 0.90 % [facility] Comment: Immature granulocytes(IG's)percentage and absolute count will include metamyelocytes, myelocytes, and promyelocytes. Blood smears from CBCs yielding IG's will be scanned manually for concordance. If this scan disagrees with the automated IG or if promyelocytes are noted, a manual differential will be performed. Immature Gran Absolute 0.07(H) 0.00 - 0.04 x10(3)/ L [facility] Blood 05/16/2023 4:20 AM EDT 05/16/2023 4:29 AM EDT Narrative Resulting Agency Comment Spec In Lab James Agustin MD HEMATOLOGY ORDER JODIE [facility] [place] [address] * (ABNORMAL) Hemogram (05/16/2023 4:20 AM EDT) White Blood Cell 7.4 4.0 - 9.5 x10(3)/mc L [facility] Red Blood Cell 2.40(L) 4.00 - 5.21 x10(6)/mc L [facility] Hemoglobin 7.8(L) 11.7 - 15.5 g/dL [facility] Hematocrit 22.5(L) 35.7 - 45.8 % [facility] Mean Cell Volume 93.8 82.6 - 94.4 fL [facility] Mean Cell Hemoglobin 32.5(H) 27.1 - 32.0 pg [facility] Mean Cell Hemoglobin Concentration 34.7 31.7 - 35.0 g/dL [facility] Platelet 120(L) 145 - 357 x10(3)/mc L [facility] RDW Standard Deviation 42.9 37.0 - 46.0 fL [facility] RDW coefficient of variation 12.9 11.5 - 14.1 % [facility] Mean Platelet Volume 11.3 7.6 - 12.9 fL [facility] NRBC% auto 0.7 % [facility] NRBC Absolute 0.050(H) 0.000 - 0.000 x10(3)/ L [facility] Blood 05/16/2023 4:20 AM EDT 05/16/2023 4:29 AM EDT Narrative Resulting Agency Comment Spec In Lab James Agustin MD HEMATOLOGY ORDER JODIE [facility] [place] [address] * (ABNORMAL) Basic Metabolic Panel (non-fasting) (05/16/2023 4:20 AM EDT) Glucose 89 65 - 199 mg/dL [facility] Comment:Diabetes: >=200 mg/d L plus symptoms Blood Urea Nitrogen 108(H) 8 - 18 mg/dL [facility] Creatinine 4.74(H) 0.70 - 1.20 mg/dL [facility] Comment:result rechecked-OLIVA Sodium 132(L) 135 - 145 mmol/L [facility] Potassium 3.9 3.5 - 5.0 mmol/L [facility] Comment: Please note: ??Patients with WBC >100,000 may have falsely elevated Potassium levels. ??For accurate Potassium quantification in these patients send serum separator tube (gold top) for subsequent determinations. ??Contact the Clinical Chemistry Laboratory if there are any questions. Chloride 95(L) 98 - 107 mmol/L [facility] Carbon Dioxide 18(L) 22 - 31 mmol/L [facility] Anion Gap 19(H) 5 - 15 mmol/L [facility] Calcium 9.2 8.5 - 10.5 mg/dL [facility] Est Glomerular Filtration Rate 10(L) >=60 mL/min/1. 73 m?? [facility] Comment: This patient's estimated GFR was [...] Address City/Va Hospital/ZIP Co de Phone Number [facility] [place] [address] * (ABNORMAL) Iron and TIBC (05/16/2023 4:20 AM EDT) Iron 31 30 - 150 mcg/dL [facility] TIBC 259 250 - 450 mcg/dL [facility] Iron Saturation 12(L) 20 - 50 % [facility] Blood 05/16/2023 4:20 AM EDT 05/16/2023 4:29 AM EDT Narrative Resulting Agency Comment Spec In Lab Kristopher Ayoub MD CHEMISTRY ORDERABLES [facility] [place] [address] * (ABNORMAL) Basic Metabolic Panel (non-fasting) (05/15/2023 12:50 AM EDT) Glucose 101 65 - 199 mg/dL [facility] Comment:Diabetes: >=200 mg/d L plus symptoms Blood Urea Nitrogen 109(H) 8 - 18 mg/dL [facility] Creatinine 5.62(H) 0.70 - 1.20 mg/dL [facility] Comment:result rechecked-KS Sodium 131(L) 135 - 145 mmol/L [facility] Comment:result rechecked-KS Potassium 3.7 3.5 - 5.0 mmol/L [facility] Comment: result rechecked-KS Please note: ??Patients with WBC >100,000 may have falsely elevated Potassium levels. ??For accurate Potassium quantification in these patients send serum separator tube (gold top) for subsequent determinations. ??Contact the Clinical Chemistry Laboratory if there are any questions. Chloride 92(L) 98 - 107 mmol/L [facility] Comment:result rechecked-KS Carbon Dioxide 18(L) 22 - 31 mmol/L [facility] Comment:result rechecked-KS Anion Gap 21(H) 5 - 15 mmol/L [facility] Calcium 8.9 8.5 - 10.5 mg/dL [facility] Est Glomerular Filtration Rate 8(L) >=60 mL/min/1. 73 m?? [facility] Comment: This patient's estimated GFR was [...] ORDERABLE S [facility] [place] [address] * (ABNORMAL) Hemogram (05/15/2023 12:50 AM EDT) White Blood Cell 9.1 4.0 - 9.5 x10(3)/mc L [facility] Red Blood Cell 2.19(L) 4.00 - 5.21 x10(6)/mc L [facility] Hemoglobin 7.2(L) 11.7 - 15.5 g/dL [facility] Hematocrit 20.6(L) 35.7 - 45.8 % [facility] Mean Cell Volume 94.1 82.6 - 94.4 fL [facility] Mean Cell Hemoglobin 32.9(H) 27.1 - 32.0 pg [facility] Mean Cell Hemoglobin Concentration 35.0 31.7 - 35.0 g/dL [facility] Platelet 109(L) 145 - 357 x10(3)/mc L [facility] RDW Standard Deviation 43.6 37.0 - 46.0 fL [facility] RDW coefficient of variation 12.9 11.5 - 14.1 % [facility] Mean Platelet Volume 10.4 7.6 - 12.9 fL [facility] NRBC% auto 2.1 % [facility] NRBC Absolute 0.190(H) 0.000 - 0.000 x10(3)/ L [facility] Blood 05/15/2023 12:5 0 AM EDT 05/15/2023 12:52 AM EDT Narrative Resulting Agency Comment Spec In Lab Alirio Hudson MD HEMATOLOGY ORDERABL ES Performing Organization Address City/State/[facility] Co de Phone Number [facility] [place] [address] * (ABNORMAL) BLOOD GAS 2 VENOUS (05/15/2023 12:49 AM EDT) pH, Venous 7.33 7.32 - 7.42 [facility] PCO2, Venous 37(L) 41 - 51 mmHg [facility] PO2, Venous 34 25 - 40 mmHg [facility] Bicarbonate, Venous 19.1 mmol/L [facility] Base Excess, Venous -6.8 mmol/L [facility] Hgb Blood Gas 10.8(L) 11.7 - 15.5 g/dL [facility] Oxyhemoglobin, Venous 58.1 % [facility] Carboxyhemoglob in, Venous 0.3 % [facility] Comment: Nonsmokers: 0.5-1.5% COHB Smokers: Variable, but usually less than 10% Toxic: 20-30% COHB Lethal: Greater than 60% COHB Methemoglobin, Venous 0.6 <=1.5 % [facility] Na Whole Blood 136 135 - 145 mmol/L [facility] K Whole Blood 3.7 3.5 - 5.0 mmol/L [facility] Comment: Please note: Patients with WBC >100,000 may have falsely elevated Potassium levels. Contact the Clinical Chemistry Laboratory if there are any questions. ICa Whole Blood 1.12(L) 1.15 - 1.33 mmol/L [facility] Comment: Note: ??Total bilirubin higher than 20 mg/dL may lead to falsely low ionized calcium. CL Whole Blood 95(L) 98 - 107 mmol/L [facility] Gluc Whole Bld 101 65 - 199 mg/dL [facility] Comment:Diabetes: >=200 mg/d L plus symptoms Lactate WB 1.3 0.5 - 2.2 mmol/L [facility] Flow, Mike 1.0 LPM [facility] Blood Gas Source Venous [facility] Blood 05/15/2023 12:4 9 AM EDT 05/15/2023 12:49 AM EDT Alirio Hudson MD POINT OF CARE TEST ORDERABLES Performing Organization Address City/State/[facility] Co de Phone Number [facility] [place] [address] * US Retroperitoneal Complete (05/14/2023 3:53 PM [...] who have questions, please contact the health geriatric care manager that requested your imaging first. ? Hayden Robledo, Staff Physician Electronically Signed Final Report ?? 05/14/2023 04:39 pm Narrative 05/14/2023 4:39 PM EDT Renal ? (Signed Final 05/14/2023 04:39 pm) PATIENT INFO: ID #: ? [id number] ?: ??[birth year] (67 yrs)(F) Name: ? PURNIMA THACKER ?Visit Date: 05/14/2023 03:44 pm PERFORMED BY: Attending: ?Meena CULP, Hayden Stafford Resident: ? Anand Camejo MD Performed By: ? Consuelo Tello RDMS Referred By: ?ALIRIO HUDSON Location: ? [place] SERVICE(S) PROVIDED: URETRO - Retroperitoneal Complete - [id number] ? [id number] INDICATIONS: EVANS COMPARISON: CT: Abdomen/Pelvis 05/11/23 RIGHT [...] 05/14/2023 04:39 pm) PATIENT INFO: ID #: [id number] : 55 (67 yrs)(F) Name: PURNIMA THACKER Visit Date: 05/14/2023 03:44 pm PERFORMED BY: Attending: Hayden Robledo MD Resident: Anand Camejo MD Performed By: Consuelo Tello RDMS Referred By: ALIRIO HUDSON Location: [place] SERVICE(S) PROVIDED: URETRO - Retroperitoneal Complete - [id number] INDICATIONS: EVANS COMPARISON: CT: Abdomen/Pelvis 05/11/23 RIGHT [...] who have questions, please contact the health geriatric care manager that requested your imaging first. Hayden Robledo, Staff Physician Electronically Signed Final Report 05/14/2023 04:39 pm Alirio Hudson MD IMG US GEN ORDERABL ES * CK (05/14/2023 3:17 PM EDT) Creatine Kinase 123 0 - 160 unit/L [facility] Blood 05/14/2023 3:17 PM EDT 05/14/2023 3:31 PM EDT Narrative Resulting Agency Comment Spec In Lab Alirio Hudson MD CHEMISTRY ORDERABLE S Performing Organization Address City/Va Hospital/ZIP Co de Phone Number [facility] [place] [address] * (ABNORMAL) Uric acid (05/14/2023 3:17 PM EDT) Uric Acid 14.9(H) 2.5 - 6.5 mg/dL [facility] Blood 05/14/2023 3:17 PM EDT 05/14/2023 3:31 PM EDT Narrative Resulting Agency Comment Spec In Lab Alirio Hudson MD CHEMISTRY ORDERABLE S [facility] [place] [address] * (ABNORMAL) Osmolality (05/14/2023 3:17 PM EDT) Osmolality 311(H) 275 - 295 mOsm/kg [facility] Blood 05/14/2023 3:17 PM EDT 05/14/2023 3:31 PM EDT Narrative Resulting Agency Comment Spec In Lab Alirio Hudson MD CHEMISTRY ORDERABLE S [facility] [place] [address] * (ABNORMAL) Differential, Automated (05/14/2023 1:10 AM EDT) Neutrophil % 87.2 % [facility] Neutrophil Absolute 9.74(H) 1.70 - 6.10 x10(3)/mc L [facility] Lymph % 3.9 % [facility] Lymphocytes Abs 0.4(L) 0.9 - 3.2 x10(3)/mc L [facility] Monocyte % 7.9 % [facility] Monocyte Abs 0.9 0.3 - 0.9 x10(3)/mc L [facility] Eos % 0.0 % [facility] Eosinophils Abs 0.0 0.0 - 0.4 x10(3)/mc L [facility] Basophil % 0.1 % [facility] Baso Absolute 0.0 0.0 - 0.1 x10(3)/mc L [facility] Immature Gran % 0.90 % [facility] Comment: Immature granulocytes(IG's)percentage and absolute count will include metamyelocytes, myelocytes, and promyelocytes. Blood smears from CBCs yielding IG's will be scanned manually for concordance. If this scan disagrees with the automated IG or if promyelocytes are noted, a manual differential will be performed. Immature Gran Absolute 0.10(H) 0.00 - 0.04 x10(3)/mc L [facility] Blood 05/14/2023 1:10 AM EDT 05/14/2023 1:24 AM EDT Narrative Resulting Agency Comment Spec In Lab Bonita TOBAR HEMATOLOGY ORDERABLE S [facility] [place] [address] * (ABNORMAL) Hemogram (05/14/2023 1:10 AM EDT) White Blood Cell 11.2(H) 4.0 - 9.5 x10(3)/mc L [facility] Red Blood Cell 2.19(L) 4.00 - 5.21 x10(6)/mc L [facility] Hemoglobin 7.2(L) 11.7 - 15.5 g/dL [facility] Hematocrit 20.3(L) 35.7 - 45.8 % [facility] Mean Cell Volume 92.7 82.6 - 94.4 fL [facility] Mean Cell Hemoglobin 32.9(H) 27.1 - 32.0 pg [facility] Mean Cell Hemoglobin Concentration 35.5(H) 31.7 - 35.0 g/dL [facility] Platelet 112(L) 145 - 357 x10(3)/mc L [facility] RDW Standard Deviation 41.4 37.0 - 46.0 fL [facility] RDW coefficient of variation 12.5 11.5 - 14.1 % [facility] Mean Platelet Volume 10.4 7.6 - 12.9 fL [facility] NRBC% auto 1.5 % [facility] NRBC Absolute 0.170(H) 0.000 - 0.000 x10(3)/mc L [facility] Blood 05/14/2023 1:10 AM EDT 05/14/2023 1:24 AM EDT Narrative Resulting Agency Comment Spec In Lab Bonita TOBAR HEMATOLOGY ORDERABLE S Performing Organization Address City/State/[facility] Co de Phone Number [facility] [place] [address] * (ABNORMAL) Comprehensive metabolic panel (non-fasting) (05/14/2023 1:10 AM EDT) Glucose 120 65 - 199 mg/dL [facility] Comment:Diabetes: >=200 mg/d L plus symptoms Blood Urea Nitrogen 98(H) 8 - 18 mg/dL [facility] Creatinine 4.80(H) 0.70 - 1.20 mg/dL [facility] Comment:result rechecked-ssc Sodium 132(L) 135 - 145 mmol/L [facility] Potassium 4.1 3.5 - 5.0 mmol/L [facility] Comment: Please note: ??Patients with WBC >100,000 may have falsely elevated Potassium levels. ??For accurate Potassium quantification in these patients send serum separator tube (gold top) for subsequent determinations. ??Contact the Clinical Chemistry Laboratory if there are any questions. Chloride 94(L) 98 - 107 mmol/L [facility] Carbon Dioxide 18(L) 22 - 31 mmol/L [facility] Anion Gap 20(H) 5 - 15 mmol/L [facility] Calcium 8.5 8.5 - 10.5 mg/dL [facility] Protein, Total 5.8(L) 6.1 - 8.0 g/dL [facility] Albumin 3.6 3.2 - 5.2 g/dL [facility] Aspartate Aminotransferase 319(H) 0 - 30 unit/L [facility] Alanine Aminotransferase 437(H) 0 - 30 unit/L [facility] Alkaline Phosphatase 86 35 - 105 unit/L [facility] Bilirubin, Total 0.4 0.2 - 1.3 mg/dL [facility] Est Glomerular Filtration Rate 9(L) >=60 mL/min/1. 73 m?? [facility] Comment: This patient's estimated GFR was [...] ORDERABLE S [facility] [place] [address] * APTT (05/13/2023 10:15 AM EDT) Partial [...] ES Performing Organization Address [facility]/[place] de Phone Number [facility] [place] [address] * (ABNORMAL) Prothrombin Time (05/13/2023 10:15 AM EDT) Prothrombin Time 14.6(H) 9.4 - 12.5 sec [facility] International Normalization Ratio 1.3 [facility] Comment: An INR <2.0 indicates adequate [...] ORDERABL ES Performing Organization Address [facility] de Phone Number [facility] [place] [address] * EKG 12 Lead (05/13/2023 9:22 AM EDT) Ventricular rate 92 BPM MUSE SYSTEM Atrial Rate 92 BPM MUSE SYSTEM P-R Interval 140 ms MUSE SYSTEM QRS Duration 104 ms MUSE SYSTEM Q-T Interval 384 ms MUSE SYSTEM QTC Calculated (Bezet) 474 ms MUSE SYSTEM Calculated P [place]rix[place] 33 degrees MUSE SYSTEM Calculated R [place] 41 degrees MUSE SYSTEM Calculated T [place] -35 degrees MUSE SYSTEM INTERPRETATION Sinus rhythm with frequent Premature ventricular complexes Septal infarct , age undetermined ST & T wave abnormality, consider lateral ischemia Abnormal ECG When compared with ECG of 12-MAY-2023 10:10, Premature ventricular complexes are now Present I personally reviewed the tracing and edited the fellows interpretation Confirmed by fellow MD Anitha, Carissa ([id number]) on 05/13/2023 3:25:30 PM Confirmed by Maxx Best ([id number]) on 05/13/2023 8:30:56 PM MUSE SYSTEM 05/13/2023 9:22 AM EDT 05/13/2023 8:30 PM EDT Alirio Hudson MD ECG ORDERABLES MUSE SYSTEM * (ABNORMAL) Differential, Automated (05/13/2023 1:15 AM EDT) Neutrophil % 88.1 % [facility] Neutrophil Absolute 7.62(H) 1.70 - 6.10 x10(3)/mc L [facility] Lymph % 3.1 % [facility] Lymphocytes Abs 0.3(L) 0.9 - 3.2 x10(3)/mc L [facility] Monocyte % 7.9 % [facility] Monocyte Abs 0.7 0.3 - 0.9 x10(3)/mc L [facility] Eos % 0.0 % [facility] Eosinophils Abs 0.0 0.0 - 0.4 x10(3)/mc L [facility] Basophil % 0.1 % [facility] Baso Absolute 0.0 0.0 - 0.1 x10(3)/mc L [facility] Immature Gran % 0.80 % [facility] Comment: Immature granulocytes(IG's)percentage and absolute count will include metamyelocytes, myelocytes, and promyelocytes. Blood smears from CBCs yielding IG's will be scanned manually for concordance. If this scan disagrees with the automated IG or if promyelocytes are noted, a manual differential will be performed. Immature Gran Absolute 0.07(H) 0.00 - 0.04 x10(3)/mc L [facility] Blood 05/13/2023 1:15 AM EDT 05/13/2023 1:29 AM EDT Narrative Resulting Agency Comment Spec In Lab Lorri TOBAR HEMATOLOGY ORDERABLE S [facility] [place] [address] * (ABNORMAL) Hemogram (05/13/2023 1:15 AM EDT) White Blood Cell 8.6 4.0 - 9.5 x10(3)/mc L [facility] Red Blood Cell 2.37(L) 4.00 - 5.21 x10(6)/mc L [facility] Hemoglobin 7.8(L) 11.7 - 15.5 g/dL [facility] Hematocrit 22.2(L) 35.7 - 45.8 % [facility] Mean Cell Volume 93.7 82.6 - 94.4 fL [facility] Mean Cell Hemoglobin 32.9(H) 27.1 - 32.0 pg [facility] Mean Cell Hemoglobin Concentration 35.1(H) 31.7 - 35.0 g/dL [facility] Platelet 130(L) 145 - 357 x10(3)/mc L [facility] RDW Standard Deviation 41.7 37.0 - 46.0 fL [facility] RDW coefficient of variation 12.5 11.5 - 14.1 % [facility] Mean Platelet Volume 10.2 7.6 - 12.9 fL [facility] NRBC% auto 0.5 % [facility] NRBC Absolute 0.040(H) 0.000 - 0.000 x10(3)/mc L [facility] Blood 05/13/2023 1:15 AM EDT 05/13/2023 1:29 AM EDT Narrative Resulting Agency Comment Spec In Lab Lorri TOBAR HEMATOLOGY ORDERABLE S [facility] [place] [address] * (ABNORMAL) Hepatic Function Panel (05/13/2023 1:15 AM EDT) Protein, Total 5.5(L) 6.1 - 8.0 g/dL [facility] Albumin 3.0(L) 3.2 - 5.2 g/dL [facility] Aspartate Aminotransferase 792(H) 0 - 30 unit/L [facility] Alanine Aminotransferase 903(H) 0 - 30 unit/L [facility] Alkaline Phosphatase 85 35 - 105 unit/L [facility] Bilirubin, Total 0.5 0.2 - 1.3 mg/dL [facility] Bilirubin, Direct 0.3 0.0 - 0.3 mg/dL [facility] Blood 05/13/2023 1:15 AM EDT 05/13/2023 1:29 AM EDT Narrative Resulting Agency Comment Spec In Lab Alirio Hudson MD CHEMISTRY ORDERABLE S Performing Organization Address City/State/[facility] Co de Phone Number [facility] [place] [address] * (ABNORMAL) Basic Metabolic Panel (non-fasting) (05/13/2023 1:15 AM EDT) Glucose 107 65 - 199 mg/dL [facility] Comment:Diabetes: >=200 mg/d L plus symptoms Blood Urea Nitrogen 82(H) 8 - 18 mg/dL [facility] Creatinine 3.15(H) 0.70 - 1.20 mg/dL [facility] Comment:result rechecked-OG Sodium 132(L) 135 - 145 mmol/L [facility] Potassium 3.8 3.5 - 5.0 mmol/L [facility] Comment: Please note: ??Patients with WBC >100,000 may have falsely elevated Potassium levels. ??For accurate Potassium quantification in these patients send serum separator tube (gold top) for subsequent determinations. ??Contact the Clinical Chemistry Laboratory if there are any questions. Chloride 95(L) 98 - 107 mmol/L [facility] Carbon Dioxide 20(L) 22 - 31 mmol/L [facility] Anion Gap 17(H) 5 - 15 mmol/L [facility] Calcium 8.3(L) 8.5 - 10.5 mg/dL [facility] Est Glomerular Filtration Rate 16(L) >=60 mL/min/1. 73 m?? [facility] Comment: This patient's estimated GFR was [...] MD CHEMISTRY ORDERABLE S Performing Organization Address City/State/[facility] Co de Phone Number [facility] [place] [address] * (ABNORMAL) BLOOD GAS 2 ARTERIAL (05/12/2023 3:57 PM EDT) pH, Arterial 7.39 7.35 - 7.45 [facility] PCO2, Arterial 33(L) 35 - 45 mmHg [facility] PO2, Arterial 101 85 - 104 mmHg [facility] Bicarbonate, Arterial 19.5(L) 20.0 - 26.0 mmol/L [facility] Base Excess, Arterial -5.5(L) -3.0 - 3.0 mmol/L [facility] Hgb Blood Gas 9.8(L) 11.7 - 15.5 g/dL [facility] Oxyhemoglobin, Arterial 95.2 94.0 - 97.0 % [facility] Carboxyhemoglob in, Arterial 0.2 % [facility] Comment: Nonsmokers: 0.5-1.5% COHB Smokers: Variable, but usually less than 10% Toxic: 20-30% COHB Lethal: Greater than 60% COHB Methemoglobin, Arterial 0.8 <=1.5 % [facility] Na Whole Blood 129(L) 135 - 145 mmol/L [facility] K Whole Blood 3.8 3.5 - 5.0 mmol/L [facility] Comment: Please note: Patients with WBC >100,000 may have falsely elevated Potassium levels. Contact the Clinical Chemistry Laboratory if there are any questions. ICa Whole Blood 1.05(L) 1.15 - 1.33 mmol/L [facility] Comment: Note: ??Total bilirubin higher than 20 mg/dL may lead to falsely low ionized calcium. CL Whole Blood 96(L) 98 - 107 mmol/L [facility] Gluc Whole Bld 178 65 - 199 mg/dL [facility] Comment:Diabetes: >=200 mg/d L plus symptoms. Lactate WB 1.5 0.5 - 2.2 mmol/L [facility] FIO2 Art 40 % [facility] PF Ratio Art 252 [facility] Blood 05/12/2023 3:57 PM EDT 05/12/2023 3:57 PM EDT Alirio Hudson MD POINT OF CARE TEST ORDERABLES Performing Organization Address [facility] Co de Phone Number [facility] [place] [address] * (ABNORMAL) Coox2 (05/12/2023 2:25 PM EDT) pO2, Coox 37 mmHg [facility] Hgb Blood Gas 9.5(L) 11.7 - 15.5 g/dL [facility] Oxyhemoglobin, Coox 59.9 % [facility] Carboxyhemoglo bin, Coox 0.3 % [facility] Comment: Nonsmokers: 0.5-1.5% COHB Smokers: Variable, but usually less than 10% Toxic: 20-30% COHB Lethal: Greater than 60% COHB Methemoglobin, Coox 0.7 <=1.5 % [facility] Source Coox Mixed Venous [facility] Blood 05/12/2023 2:25 PM EDT 05/12/2023 2:25 PM EDT Alirio Hudson MD POINT OF CARE TEST ORDERABLES Performing Organization Address [facility] Co de Phone Number [facility] [place] [address] * (ABNORMAL) BLOOD GAS 2 ARTERIAL (05/12/2023 2:23 PM EDT) pH, Arterial 7.37 7.35 - 7.45 [facility] PCO2, Arterial 36 35 - 45 mmHg [facility] PO2, Arterial 102 85 - 104 mmHg [facility] Bicarbonate, Arterial 20.4 20.0 - 26.0 mmol/L [facility] Base Excess, Arterial -4.8(L) -3.0 - 3.0 mmol/L [facility] Hgb Blood Gas 12.7 11.7 - 15.5 g/dL [facility] Oxyhemoglobin, Arterial 95.4 94.0 - 97.0 % [facility] Carboxyhemoglob in, Arterial 0.3 % [facility] Comment: Nonsmokers: 0.5-1.5% COHB Smokers: Variable, but usually less than 10% Toxic: 20-30% COHB Lethal: Greater than 60% COHB Methemoglobin, Arterial 0.7 <=1.5 % [facility] Na Whole Blood 129(L) 135 - 145 mmol/L [facility] K Whole Blood 3.7 3.5 - 5.0 mmol/L [facility] Comment: Please note: Patients with WBC >100,000 may have falsely elevated Potassium levels. Contact the Clinical Chemistry Laboratory if there are any questions. ICa Whole Blood 1.05(L) 1.15 - 1.33 mmol/L [facility] Comment: Note: ??Total bilirubin higher than 20 mg/dL may lead to falsely low ionized calcium. CL Whole Blood 95(L) 98 - 107 mmol/L [facility] Gluc Whole Bld 168 65 - 199 mg/dL [facility] Comment:Diabetes: >=200 mg/d L plus symptoms. Lactate WB 1.8 0.5 - 2.2 mmol/L [facility] FIO2 Art 40 % [facility] PF Ratio Art 255 [facility] Blood 05/12/2023 2:23 PM EDT 05/12/2023 2:23 PM EDT Alirio Hudson MD POINT OF CARE TEST ORDERABLES [facility] [place] [address] * (ABNORMAL) Troponin (05/12/2023 2:05 PM EDT) Troponin-T, High Sensitivity 1,022(H) <=14 ng/L [facility] Comment: This patient's troponin T concentration [...] [facility] Test Catalog Reference: Fourth [place] Definition of Myocardial Infarction. Journal of the [place] [employer] 2018;72:1831-4949 Blood 05/12/2023 2:05 PM EDT 05/12/2023 2:14 PM EDT Narrative Resulting Agency Comment Spec In Lab Alirio Hudson MD CHEMISTRY ORDERABLE S [facility] [place] [address] * (ABNORMAL) Hemoglobin (05/12/2023 2:05 PM EDT) Hemoglobin 8.5(L) 11.7 - 15.5 g/dL [facility] Blood 05/12/2023 2:05 PM EDT 05/12/2023 2:14 PM EDT Narrative Resulting Agency Comment Spec In Lab Alirio Hudson MD HEMATOLOGY ORDERABL ES Performing Organization Address [facility] Co de Phone Number [facility] [place] [address] * Potassium (05/12/2023 2:05 PM EDT) Potassium 3.9 3.5 - 5.0 mmol/L [facility] Comment: Please note: ??Patients with WBC [...] S Performing Organization Address [facility] Co de Phone Number [facility] [place] [address] * (ABNORMAL) BLOOD GAS 2 ARTERIAL (05/12/2023 11:05 AM EDT) pH, Arterial 7.34(L) 7.35 - 7.45 [facility] PCO2, Arterial 42 35 - 45 mmHg [facility] PO2, Arterial 73(L) 85 - 104 mmHg [facility] Bicarbonate, Arterial 22.1 20.0 - 26.0 mmol/L [facility] Base Excess, Arterial -3.6(L) -3.0 - 3.0 mmol/L [facility] Hgb Blood Gas 9.3(L) 11.7 - 15.5 g/dL [facility] Oxyhemoglobin, Arterial 89.3(L) 94.0 - 97.0 % [facility] Carboxyhemoglob in, Arterial 0.2 % [facility] Comment: Nonsmokers: 0.5-1.5% COHB Smokers: Variable, but usually less than 10% Toxic: 20-30% COHB Lethal: Greater than 60% COHB Methemoglobin, Arterial 0.9 <=1.5 % [facility] Na Whole Blood 131(L) 135 - 145 mmol/L [facility] K Whole Blood 3.8 3.5 - 5.0 mmol/L [facility] Comment: Please note: Patients with WBC >100,000 may have falsely elevated Potassium levels. Contact the Clinical Chemistry Laboratory if there are any questions. ICa Whole Blood 1.04(L) 1.15 - 1.33 mmol/L [facility] Comment: Note: ??Total bilirubin higher than 20 mg/dL may lead to falsely low ionized calcium. CL Whole Blood 96(L) 98 - 107 mmol/L [facility] Gluc Whole Bld 152 65 - 199 mg/dL [facility] Comment:Diabetes: >=200 mg/d L plus symptoms. Lactate WB 2.8(H) 0.5 - 2.2 mmol/L [facility] FIO2 Art 40 % [facility] PF Ratio Art 182 [facility] Blood 05/12/2023 11:0 5 AM EDT 05/12/2023 11:05 AM EDT Alirio Hudson MD POINT OF CARE TEST ORDERABLES [facility] [place] [address] * (ABNORMAL) BLOOD GAS 2 ARTERIAL (05/12/2023 10:14 AM EDT) pH, Arterial 7.18(Criti gabrielle) 7.35 - 7.45 [facility] Comment:Noted by instrument worker. PCO2, Arterial 45 35 - 45 mmHg [facility] PO2, Arterial 186(H) 85 - 104 mmHg [facility] Bicarbonate, Arterial 16.2(L) 20.0 - 26.0 mmol/L [facility] Base Excess, Arterial -12.2(L) -3.0 - 3.0 mmol/L [facility] Hgb Blood Gas 10.0(L) 11.7 - 15.5 g/dL [facility] Oxyhemoglobin, Arterial 97.0 94.0 - 97.0 % [facility] Carboxyhemoglob in, Arterial 0.2 % [facility] Comment: Nonsmokers: 0.5-1.5% COHB Smokers: Variable, but usually less than 10% Toxic: 20-30% COHB Lethal: Greater than 60% COHB Methemoglobin, Arterial 0.9 <=1.5 % [facility] Na Whole Blood 129(L) 135 - 145 mmol/L [facility] K Whole Blood 3.6 3.5 - 5.0 mmol/L [facility] Comment: Please note: Patients with WBC >100,000 may have falsely elevated Potassium levels. Contact the Clinical Chemistry Laboratory if there are any questions. ICa Whole Blood 1.10(L) 1.15 - 1.33 mmol/L [facility] Comment: Note: ??Total bilirubin higher than 20 mg/dL may lead to falsely low ionized calcium. CL Whole Blood 97(L) 98 - 107 mmol/L [facility] Gluc Whole Bld 161 65 - 199 mg/dL [facility] Comment:Diabetes: >=200 mg/d L plus symptoms. Lactate WB 3.3(H) 0.5 - 2.2 mmol/L [facility] FIO2 Art 100 % [facility] PF Ratio Art 186 [facility] Blood 05/12/2023 10:1 4 AM EDT 05/12/2023 10:14 AM EDT Alirio Hudson MD POINT OF CARE TEST ORDERABLES Performing Organization Address City/State/[facility] Co de Phone Number [facility] [place] [address] * EKG 12 Lead (05/12/2023 10:10 AM EDT) Ventricular rate 116 BPM MUSE SYSTEM Atrial Rate 116 BPM MUSE SYSTEM P-R Interval 158 ms MUSE SYSTEM QRS Duration 114 ms MUSE SYSTEM Q-T Interval 348 ms MUSE SYSTEM QTC Calculated (Bezet) 483 ms MUSE SYSTEM Calculated P Brixey 37 degrees MUSE SYSTEM Calculated R Brixey 31 degrees MUSE SYSTEM Calculated T Brixey -138 degrees MUSE SYSTEM INTERPRETATION Sinus tachycardia [...] interpretation Confirmed by fellow MD Anuja, Jim ([id number]) on 05/12/2023 1:04:20 PM Confirmed by MD Mono, Eleni ([id number]) on 05/12/2023 9:28:34 PM MUSE SYSTEM 05/12/2023 [...] who have questions please contact the health geriatric care manager that requested your imaging first. ? Electronically signed by: Chyna Johnson MD, [facility] ??([phone]), at 05/12/2023 10:08 AM Narrative 05/12/2023 10:08 AM EDT EXAMINATION: XR CHEST ONE VIEW CLINICAL HISTORY: Post TAVR TECHNIQUE: 1 view of the chest COMPARISON: Chest radiograph from earlier today FINDINGS: Interval placement of endotracheal tube with tip terminating 2 cm above the shira. Interval placement of enteric tube projecting along the expected course of the esophagus and outside the uxhcn-on-ejmi. Interval retraction of right IJ approach pulmonary [...] expected course ofthe esophagus and outside the nllbg-do-arau. Interval retraction of right IJ approach pulmonary [...] patients who have questions please contactthe health geriatric care manager that requested your imaging first. Electronically signed by: Chyna Johnson MD, [facility]([phone]), at 05/12/2023 10:08 AM Alirio Hudson MD [...] 1955 ? Height: 154 cm ? Account: [id number] Age: 67 yrs ? Weight: 75 kg Gender: Female ?BSA: 1.7 m2 Ordering Physician: RADHA HOLLINS Referring Physician: RADHA HOLLINS Performed By: Dilma Bee RDCS Reason For Study: Guidance for TAVR procedure Exam Location: [facility]. Interpretation Summary PRE TAVR: There is [...] mL/m2. POST TAVR: Normal function of the ufcmo-iz-lzzzq prosthesis. See below for hemodynamic parameters. Slight improvement in left and right ventricular systolic function. LVEF now 20-25%. No pericardial effusion. See report for additional findings. Procedure Limited - 06778. Doppler - 14593. Color Doppler - 10701. Left Ventricle Left ventricle is of normal [...] Date: 307:33 AMBP: 96/63 mmHg Patient Location: [address] : 1955 Height: 154 cm Account: [id number] Age: 67 yrs Weight: 75 kg Gender: Female BSA: 1.7 m2 Ordering Physician: RADHA HOLLINS Referring Physician: RADHA HOLLINS Performed By: Dilma Bee RDCS Reason For Study: Guidance for TAVR procedure Exam Location: [facility]. Interpretation Summary PRE TAVR: There is [...] 28mL/m2. POST TAVR: Normal function of the dzhkc-ns-kmqle prosthesis. See belowfor hemodynamic parameters. Slight improvement in left and right ventricularsystolic function. LVEF now 20-25%. No pericardial effusion. See report for additional findings. Procedure Limited - 14968. Doppler - 09289. Color Doppler - 67613. Left Ventricle Left ventricle is of normal [...] Other Narrative 05/12/2023 2:37 PM EDT ?[facility] ? Cardiac Catheterization/Intervention Report ? Patient Name: Kirstie, Purnima M. ? Procedure Date: 05/12/2023 ? A #: [id number] ? Primary Physician: Antelmo Sharma ? Case #: [id number] ? File Name: [id number] ? Catheterization Order Number: [id number] ? [facility] ? Final Report [place], [place] ? Patient Name: ? Purnima Thacker ? ID#: ?[id number] ? : ?1955 ? Procedure Date: ? May 12, 2023 ? Case #: ? [id number] ? Room: ? 6 ? Case Physicians: ?Antelmo Sharma M.D. ?Start: ?08:03 ?Alirio Hudson M.D. ?Admission: ??05/08/2023 ?Lynda Mcgowan M.D. ? Discharge: ??05/22/2023 ?Fellow: ? Kristied Adair Tejeda ? Referring Physician: ??Mario Alberto Chin M.D. ? Procedures: ?* Coronary Angiography ?* Left Heart Catheterization ?* Coronary Stent Insertion ?* Transcatheter Aortic Valve Replacement ?* Vascular Closure Device Deployment ?* Temporary Pacemaker Insertion In Spanish Lecturer ?* Endotracheal Intubation By Non-Cath Physician ?* [...] was designated as ASA Class IV. The [facility] clinical ?frailty scale is 4: [...] guide. ??A premounted 4.00 x 30 mm [place] ([place]) was ? deployed with a maximum [...] calculated STS risk score was 30.1%. A mqbba-gw-pdota ?procedure was performed on the pre-existing bioprosthetic stented ?prosthesis. The priority of the ffnoy-rr-anjyb procedure was Elective. ?The procedure was performed [...] Lai 3 Ultra RESILIA 23 mm THV (s/u=[id number]) transcatheter ?valve was inserted using standard technique. 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 ?Recommended anti-platelet/anti-thrombotic regimen: ?Continue aspirin 81 mg daily for indefinitely. ?These recommendations are made at the time of the intervention. Patient ?and provider preferences or a changing clinical situation may require ?modification of this regimen. Consult [facility] Interventional Cardiology for ?questions. ? [...] regimen. ? Comments: ?Successful right transfemoral TAVR Obpcc-ty-Bwsbf with a 23 mm Lai 3 ?THV. [...] insertion-coronary, access site angiography, ?temporary pacemaker in shrimp pond laborer, intubation-non cath physician, vascular ?closure device, transthoracic echo ??and TAVR. Dr. Alirio Hudson M.D. ?performed the left heart catheterization, access site angiography, ?temporary pacemaker in shrimp pond laborer, vascular closure device, transthoracic ?echo , TAVR and CPR during cath. Dr. Lynda Mcgowan M.D. performed the ABG, ?anesthesia and intubation-non cath physician. ? Antelmo Sharma M.D. ? Electronically Signed by: Antelmo Sharma M.D. ? Report Finalized: 05/12/2023 ??14:31 ? Report Last Ammended: 07/01/2023 ??11:30 ? Procedure Note Antelmo Sharma MD - 07/01/2023 [facility] Cardiac Catheterization/Intervention Report Patient Name: Purnima Thacker Procedure Date: 05/12/2023 A #: [id number] Primary Physician: Antelmo Sharma Case #: [id number] File Name: [id number] Catheterization Order Number: [id number] [facility] FinalReport [place], [place] Patient Name: Purnima Thacker ID#:[id number] :1955 Procedure Date: May 12, 2023 Case #: [id number] Room: 6 Case Physicians: Antelmo Sharma M.D. Start: 08:03 Alirio Hudson M.D. Admission:05/08/2023 Lynda Mcgowan M.D. Discharge:05/22/2023 Fellow: Rebekah Tejeda M.D. Referring Physician: Mario Alberto Chin M.D. Procedures: * Coronary Angiography * Left Heart Catheterization * Coronary Stent Insertion * Transcatheter Aortic Valve Replacement * Vascular Closure Device Deployment * Temporary Pacemaker Insertion In Spanish Lecturer * Endotracheal Intubation By Non-Cath Physician * [...] A premounted 4.00 x 30 mm [place] ([place]) was deployed with a maximum inflation [...] calculated STS risk score was 30.1%. A rcwnb-fk-xcvvg procedure was performed on the pre-existing bioprosthetic stented prosthesis. The priority of the cusbf-ym-ogaua procedure wasElective. The procedure was performed under Moderate sedation performed byLynda Mcgowan M.D. (see anesthesia report for additional details). Alirio Hudson M.D. participated in the case (see Cardiac Surgery reportfor additional details). The TAVR sheath was a 14 Fr Corona eSheath Introducer and theaccess site was femoral. Rapid ventricular pacing was performed. An [place]ona Lai 3 Ultra RESILIA 23 mm THV (s/o=[id number])transcatheter valve was inserted using standard technique. The [...] prior to nor was it given inthe shrimp pond laborer. Recommended anti-platelet/anti-thrombotic regimen: Continue aspirin 81 mg daily for indefinitely. These recommendations are made at the time of the intervention.Patient and provider preferences or a changing clinical situation mayrequire modification of this regimen. Consult [facility] Interventional Cardiologyfor questions. Conclusions: * [...] this regimen. Comments: Successful right transfemoral TAVR Oskrc-dp-Vlhwu with a 23 mmSapien 3 THV. We [...] insertion-coronary, access site angiography, temporary pacemaker in shrimp pond laborer, intubation-non cath physician,vascular closure device, transthoracic echo and TAVR. Dr. Alirio Hudson M.D. performed the left heart catheterization, access site angiography, temporary pacemaker in shrimp pond laborer, vascular closure device,transthoracic echo , TAVR [...] - 7.45 [facility] Comment:Critical value OK, C C Lab. pCO2, POC 42 35 - 45 mmHg [facility] pO2, POC 260(H) 85 - 104 mmHg [facility] Base Excess, POC -11.0(L) -3.0 - 3.0 mmol/L [facility] Bicarbonate, POC 16.7(L) 20.0 - 26.0 mmol/L [facility] Sodium, POC 129(L) 135 - 145 mmol/L [facility] POC Potassium 3.8 3.5 - 5.0 mmol/L [facility] Ionized Calcium, POC 1.12(L) 1.15 - 1.33 mmol/L [facility] POC Hematocrit 23.0(L) 34.0 - 45.0 % [facility] POC Calc Hgb 7.8(L) 11.2 - 15.7 g/dL [facility] Comment:The calculation of h emoglobin from hematocrit assumes a normal MCHC. POC Bgas Loc CC Lab [facility] Blood 05/12/2023 8:50 AM EDT 05/13/2023 12:00 PM EDT Alirio Hudson MD CHEMISTRY ORDERABLE S [facility] [place] [address] * (ABNORMAL) Point of Care Blood Gas Historical (05/12/2023 8:10 AM EDT) pH, POC 7.27(Crit ical) 7.35 - 7.45 [facility] Comment:Critical value OK, C C Lab. pCO2, POC 37 35 - 45 mmHg [facility] pO2, POC 29(Critic al) 85 - 104 mmHg [facility] Comment:Critical value OK, C C Lab. Base Excess, POC -10.0(L) -3.0 - 3.0 mmol/L [facility] Bicarbonate, POC 16.7(L) 20.0 - 26.0 mmol/L [facility] Sodium, POC 123(L) 135 - 145 mmol/L [facility] POC Potassium 4.0 3.5 - 5.0 mmol/L [facility] Ionized Calcium, POC 1.12(L) 1.15 - 1.33 mmol/L [facility] POC Hematocrit 27.0(L) 34.0 - 45.0 % [facility] POC Calc Hgb 9.2(L) 11.2 - 15.7 g/dL [facility] Comment:The calculation of h emoglobin from hematocrit assumes a normal MCHC. POC Bgas Loc CC Lab [facility] Blood 05/12/2023 8:10 AM EDT 05/13/2023 12:00 PM EDT Alirio Hudson MD CHEMISTRY ORDERABLE S [facility] [place] [address] * (ABNORMAL) Lactate, whole blood, send to lab ([facility]) (05/12/2023 7:00 AM EDT) Lactate WB 2.4(H) 0.5 - 2.2 mmol/L [facility] Blood 05/12/2023 7:00 AM EDT 05/12/2023 7:09 AM EDT Narrative Resulting Agency Comment Spec In Lab Radha Hollins MD CHEMISTRY ORDERABL ES Performing Organization Address City/Va Hospital/ZIP Co de Phone Number [facility] [place] [address] * (ABNORMAL) Comprehensive metabolic panel (non-fasting) (05/12/2023 6:00 AM EDT) Glucose 167 65 - 199 mg/dL [facility] Comment:Diabetes: >=200 mg/d L plus symptoms Blood Urea Nitrogen 67(H) 8 - 18 mg/dL [facility] Creatinine 2.01(H) 0.70 - 1.20 mg/dL [facility] Sodium 131(L) 135 - 145 mmol/L [facility] Potassium 4.3 3.5 - 5.0 mmol/L [facility] Comment: Please note: ??Patients with WBC >100,000 may have falsely elevated Potassium levels. ??For accurate Potassium quantification in these patients send serum separator tube (gold top) for subsequent determinations. ??Contact the Clinical Chemistry Laboratory if there are any questions. Chloride 97(L) 98 - 107 mmol/L [facility] Carbon Dioxide 14(L) 22 - 31 mmol/L [facility] Anion Gap 20(H) 5 - 15 mmol/L [facility] Calcium 8.6 8.5 - 10.5 mg/dL [facility] Protein, Total 6.3 6.1 - 8.0 g/dL [facility] Albumin 3.5 3.2 - 5.2 g/dL [facility] Aspartate Aminotransferase 1,435(H) 0 - 30 unit/L [facility] Alanine Aminotransferase 1,174(H) 0 - 30 unit/L [facility] Alkaline Phosphatase 100 35 - 105 unit/L [facility] Bilirubin, Total 0.9 0.2 - 1.3 mg/dL [facility] Est Glomerular Filtration Rate 27(L) >=60 mL/min/1. 73 m?? [facility] Comment: This patient's estimated GFR was [...] MD CHEMISTRY ORDERABL ES Performing Organization Address City/State/[facility] Co de Phone Number [facility] [place] [address] * (ABNORMAL) Coox2 (05/12/2023 5:08 AM EDT) pO2, Coox 24 mmHg [facility] Hgb Blood Gas 10.4(L) 11.7 - 15.5 g/dL [facility] Oxyhemoglobin, Coox 30.7 % [facility] Carboxyhemoglo bin, Coox 0.3 % [facility] Comment: Nonsmokers: 0.5-1.5% COHB Smokers: Variable, but usually less than 10% Toxic: 20-30% COHB Lethal: Greater than 60% COHB Methemoglobin, Coox 0.8 <=1.5 % [facility] Source Coox Mixed Venous [facility] Blood 05/12/2023 5:08 AM EDT 05/12/2023 5:08 AM EDT Radha Hollins MD POINT OF CARE TEST ORDERABLES Performing Organization Address [facility] Co de Phone Number [facility] [place] [address] * (ABNORMAL) Coox2 (05/12/2023 3:21 AM EDT) pO2, Coox 25 mmHg [facility] Hgb Blood Gas 10.8(L) 11.7 - 15.5 g/dL [facility] Oxyhemoglobin, Coox 32.7 % [facility] Carboxyhemoglo bin, Coox 0.3 % [facility] Comment: Nonsmokers: 0.5-1.5% COHB Smokers: Variable, but usually less than 10% Toxic: 20-30% COHB Lethal: Greater than 60% COHB Methemoglobin, Coox 0.7 <=1.5 % [facility] Source Coox Mixed Venous [facility] Blood 05/12/2023 3:21 AM EDT 05/12/2023 3:21 AM EDT Radha Hollins MD POINT OF CARE TEST ORDERABLES Performing Organization Address [facility] de Phone Number [facility] [place] [address] * (ABNORMAL) BLOOD GAS 2 ARTERIAL (05/12/2023 3:18 AM EDT) pH, Arterial 7.34(L) 7.35 - 7.45 [facility] PCO2, Arterial 30(L) 35 - 45 mmHg [facility] PO2, Arterial 72(L) 85 - 104 mmHg [facility] Bicarbonate, Arterial 16.0(L) 20.0 - 26.0 mmol/L [facility] Base Excess, Arterial -9.8(L) -3.0 - 3.0 mmol/L [facility] Hgb Blood Gas 11.0(L) 11.7 - 15.5 g/dL [facility] Oxyhemoglobin, Arterial 89.8(L) 94.0 - 97.0 % [facility] Carboxyhemoglob in, Arterial 0.3 % [facility] Comment: Nonsmokers: 0.5-1.5% COHB Smokers: Variable, but usually less than 10% Toxic: 20-30% COHB Lethal: Greater than 60% COHB Methemoglobin, Arterial 0.7 <=1.5 % [facility] Na Whole Blood 131(L) 135 - 145 mmol/L [facility] K Whole Blood 4.2 3.5 - 5.0 mmol/L [facility] Comment: Please note: Patients with WBC >100,000 may have falsely elevated Potassium levels. Contact the Clinical Chemistry Laboratory if there are any questions. ICa Whole Blood 1.12(L) 1.15 - 1.33 mmol/L [facility] Comment: Note: ??Total bilirubin higher than 20 mg/dL may lead to falsely low ionized calcium. CL Whole Blood 100 98 - 107 mmol/L [facility] Gluc Whole Bld 160 65 - 199 mg/dL [facility] Comment:Diabetes: >=200 mg/d L plus symptoms. Lactate WB 2.7(H) 0.5 - 2.2 mmol/L [facility] Flow Art 5.0 LPM [facility] Blood 05/12/2023 3:18 AM EDT 05/12/2023 3:18 AM EDT Radha Hollins MD POINT OF CARE TEST ORDERABLES Performing Organization Address City/State/[facility] Co de Phone Number [facility] [place] [address] * (ABNORMAL) Coox2 (05/12/2023 1:14 AM EDT) pO2, Coox 28 mmHg [facility] Hgb Blood Gas 10.9(L) 11.7 - 15.5 g/dL [facility] Oxyhemoglobin, Coox 37.3 % [facility] Carboxyhemoglo bin, Coox 0.3 % [facility] Comment: Nonsmokers: 0.5-1.5% COHB Smokers: Variable, but usually less than 10% Toxic: 20-30% COHB Lethal: Greater than 60% COHB Methemoglobin, Coox 0.5 <=1.5 % [facility] Source Coox Mixed Venous [facility] Blood 05/12/2023 1:14 AM EDT 05/12/2023 1:14 AM EDT Radha Hollins MD POINT OF CARE TEST ORDERABLES [facility] [place] [address] * (ABNORMAL) BLOOD GAS 2 ARTERIAL (05/12/2023 1:06 AM EDT) pH, Arterial 7.34(L) 7.35 - 7.45 [facility] PCO2, Arterial 30(L) 35 - 45 mmHg [facility] PO2, Arterial 81(L) 85 - 104 mmHg [facility] Bicarbonate, Arterial 15.7(L) 20.0 - 26.0 mmol/L [facility] Base Excess, Arterial -10.1(L) -3.0 - 3.0 mmol/L [facility] Hgb Blood Gas 11.0(L) 11.7 - 15.5 g/dL [facility] Oxyhemoglobin, Arterial 92.3(L) 94.0 - 97.0 % [facility] Carboxyhemoglob in, Arterial 0.2 % [facility] Comment: Nonsmokers: 0.5-1.5% COHB Smokers: Variable, but usually less than 10% Toxic: 20-30% COHB Lethal: Greater than 60% COHB Methemoglobin, Arterial 0.6 <=1.5 % [facility] Na Whole Blood 131(L) 135 - 145 mmol/L [facility] K Whole Blood 4.2 3.5 - 5.0 mmol/L [facility] Comment: Please note: Patients with WBC >100,000 may have falsely elevated Potassium levels. Contact the Clinical Chemistry Laboratory if there are any questions. ICa Whole Blood 1.13(L) 1.15 - 1.33 mmol/L [facility] Comment: Note: ??Total bilirubin higher than 20 mg/dL may lead to falsely low ionized calcium. CL Whole Blood 99 98 - 107 mmol/L [facility] Gluc Whole Bld 132 65 - 199 mg/dL [facility] Comment:Diabetes: >=200 mg/d L plus symptoms. Lactate WB 2.7(H) 0.5 - 2.2 mmol/L [facility] Flow Art 5.0 LPM [facility] Blood 05/12/2023 1:06 AM EDT 05/12/2023 1:06 AM EDT Radha Hollins MD POINT OF CARE TEST ORDERABLES [facility] [place] [address] * (ABNORMAL) Differential, Automated (05/12/2023 1:05 AM EDT) Neutrophil % 83.3 % [facility] Neutrophil Absolute 7.49(H) 1.70 - 6.10 x10(3)/mc L [facility] Lymph % 7.1 % [facility] Lymphocytes Abs 0.6(L) 0.9 - 3.2 x10(3)/mc L [facility] Monocyte % 8.9 % [facility] Monocyte Abs 0.8 0.3 - 0.9 x10(3)/mc L [facility] Eos % 0.0 % [facility] Eosinophils Abs 0.0 0.0 - 0.4 x10(3)/mc L [facility] Basophil % 0.1 % [facility] Baso Absolute 0.0 0.0 - 0.1 x10(3)/mc L [facility] Immature Gran % 0.60 % [facility] Comment: Immature granulocytes(IG's)percentage and absolute count will include metamyelocytes, myelocytes, and promyelocytes. Blood smears from CBCs yielding IG's will be scanned manually for concordance. If this scan disagrees with the automated IG or if promyelocytes are noted, a manual differential will be performed. Immature Gran Absolute 0.05(H) 0.00 - 0.04 x10(3)/mc L [facility] Blood 05/12/2023 1:05 AM EDT 05/12/2023 1:15 AM EDT Narrative Resulting Agency Comment Spec In Lab Gianni Fletcher MD HEMATOLOGY ORDERABLE S [facility] [place] [address] * (ABNORMAL) Hemogram (05/12/2023 1:05 AM EDT) White Blood Cell 9.0 4.0 - 9.5 x10(3)/mc L [facility] Red Blood Cell 3.01(L) 4.00 - 5.21 x10(6)/mc L [facility] Hemoglobin 9.8(L) 11.7 - 15.5 g/dL [facility] Hematocrit 28.7(L) 35.7 - 45.8 % [facility] Mean Cell Volume 95.3(H) 82.6 - 94.4 fL [facility] Mean Cell Hemoglobin 32.6(H) 27.1 - 32.0 pg [facility] Mean Cell Hemoglobin Concentration 34.1 31.7 - 35.0 g/dL [facility] Platelet 186 145 - 357 x10(3)/mc L [facility] RDW Standard Deviation 43.7 37.0 - 46.0 fL [facility] RDW coefficient of variation 12.7 11.5 - 14.1 % [facility] Mean Platelet Volume 10.3 7.6 - 12.9 fL [facility] NRBC% auto 0.0 % [facility] NRBC Absolute 0.000 0.000 - 0.000 x10(3)/ L [facility] Blood 05/12/2023 1:05 AM EDT 05/12/2023 1:15 AM EDT Narrative Resulting Agency Comment Spec In Lab Gianni Fletcher MD HEMATOLOGY ORDERABLE S [facility] [place] [address] * (ABNORMAL) Comprehensive metabolic panel (non-fasting) (05/12/2023 1:05 AM EDT) Glucose 141 65 - 199 mg/dL [facility] Comment:Diabetes: >=200 mg/d L plus symptoms Blood Urea Nitrogen 63(H) 8 - 18 mg/dL [facility] Creatinine 1.86(H) 0.70 - 1.20 mg/dL [facility] Sodium 131(L) 135 - 145 mmol/L [facility] Potassium 4.4 3.5 - 5.0 mmol/L [facility] Comment: Please note: ??Patients with WBC >100,000 may have falsely elevated Potassium levels. ??For accurate Potassium quantification in these patients send serum separator tube (gold top) for subsequent determinations. ??Contact the Clinical Chemistry Laboratory if there are any questions. Chloride 96(L) 98 - 107 mmol/L [facility] Carbon Dioxide 14(L) 22 - 31 mmol/L [facility] Anion Gap 21(H) 5 - 15 mmol/L [facility] Calcium 9.0 8.5 - 10.5 mg/dL [facility] Protein, Total 6.6 6.1 - 8.0 g/dL [facility] Albumin 3.9 3.2 - 5.2 g/dL [facility] Aspartate Aminotransferase 1,227(H) 0 - 30 unit/L [facility] Alanine Aminotransferase 1,097(H) 0 - 30 unit/L [facility] Alkaline Phosphatase 108(H) 35 - 105 unit/L [facility] Bilirubin, Total 1.0 0.2 - 1.3 mg/dL [facility] Est Glomerular Filtration Rate 29(L) >=60 mL/min/1. 73 m?? [facility] Comment: This patient's estimated GFR was [...] ORDERABL ES [facility] [place] [address] * XR Chest One View (05/12/2023 1:00 [...] who have questions please contact the health geriatric care manager that requested your imaging first. [...] patients who have questions please contactthe health geriatric care manager that requested your imaging first. Radha Hollins MD IMG DX ORDERABLES * (ABNORMAL) Coox2 (05/12/2023 12:30 AM EDT) pO2, Coox 22 mmHg [facility] Hgb Blood Gas 10.9(L) 11.7 - 15.5 g/dL [facility] Oxyhemoglobin, Coox 25.1 % [facility] Carboxyhemoglo bin, Coox 0.3 % [facility] Comment: Nonsmokers: 0.5-1.5% COHB Smokers: Variable, but usually less than 10% Toxic: 20-30% COHB Lethal: Greater than 60% COHB Methemoglobin, Coox 1.4 <=1.5 % [facility] Source Coox Mixed Venous [facility] Blood 05/12/2023 12:3 0 AM EDT 05/12/2023 12:30 AM EDT Radha Hollins MD POINT OF CARE TEST ORDERABLES [facility] [place] [address] * XR Chest One View (05/11/2023 11:45 [...] who have questions please contact the health geriatric care manager that requested your imaging first. [...] patients who have questions please contactthe health geriatric care manager that requested your imaging first. Radha Hollins MD IMG DX ORDERABLES * (ABNORMAL) Lactate, whole blood, send to lab ([facility] (05/11/2023 7:40 PM EDT) Lactate WB 4.8(Critic al) 0.5 - 2.2 mmol/L [facility] Comment:Called by: NIKI, Read back by: Magdalena Baires, Date/Time:05/11/23 19:54. Blood 05/11/2023 7:40 PM EDT 05/11/2023 7:49 PM EDT Narrative Resulting Agency Comment Spec In Lab Radha Hollins MD CHEMISTRY ORDERABL ES Performing Organization Address [facility] Co de Phone Number [facility] [place] [address] * Urine culture (05/11/2023 7:22 PM EDT) Urine Culture 50,000-99,000 cfu/ml Normal mucosal herman Susceptibilit y testing not routinely performed for Coagulase Negative Staphylococcu s species and other Gram Positive organisms from urine. [facility] Clean Catch Urine 05/11/2023 7:22 PM EDT 05/11/2023 8:50 PM EDT Narrative Resulting Agency Comment Spec In Lab Brody Dale Eusebio OSBORN MICROBIOLOGY - GENE RAL ORDERABLES Performing Organization Address [facility] de Phone Number [facility] [place] [address] * (ABNORMAL) Urinalysis Microscopic Exam (05/11/2023 7:22 PM EDT) RBC, Urine 2 0 - 4 /HPF [facility] WBC, Urine >100(H) 0 - 5 /HPF [facility] Bacteria, Urine Occasional (A) None /HPF [facility] Squamous Epithelial Cells Raw Data, Urine 5(H) <=4 /HPF [facility] Hyaline Casts, Urine 3(H) 0 - 2 /LPF [facility] Clean Catch Urine 05/11/2023 7:22 PM EDT 05/11/2023 7:31 PM EDT Narrative Resulting Agency Comment Spec In Lab Brody Kaplan APRN URINE ORDERABLES Performing Organization Address [facility] Co de Phone Number [facility] [place] [address] * (ABNORMAL) Urinalysis with reflex Culture (05/11/2023 7:22 PM EDT) Glucose, Urine Dipstick Negative Negative mg/dL [facility] Protein, Urine Dipstick Trace(A) Negative mg/dL [facility] Bilirubin, Urine Dipstick Negative Negative mg/dL [facility] Comment: Clinical correlation required for positive Urine Bilirubin results as false positive may occur with some drugs and drug related products. If a false positive is suspected a serum total bilirubin should be considered if clinically indicated. Urobilinogen, Urine Dipstick Normal Normal mg/dL [facility] pH, Urn (dipstick) 5.0 5.0 - 8.0 [facility] Blood, Urine Dipstick Trace(A) Negative mg/dL [facility] Ketone, Urine Dipstick Negative Negative mg/dL [facility] Nitrite, Urine Dipstick Negative Negative [facility] Leukocytes, Urine Dipstick Moderate(A) Negative mcL [facility] Appearance, Urine Dipstick Cloudy(A) Clear [facility] Specific [place] Urine Automated >=1.030(A) 1.005 - 1.030 [facility] Color, Urine Dipstick Yellow Yellow [facility] Reflex to Culture Yes [facility] Clean Catch Urine 05/11/2023 7:22 PM EDT 05/11/2023 7:31 PM EDT Narrative Resulting Agency Comment Spec In Lab Brody Kaplan APRN URINE ORDERABLES Performing Organization Address [facility] Co de Phone Number [facility] [place] [address] * (ABNORMAL) pro-Brain Natriuretic Peptide (05/11/2023 7:11 PM EDT) NT-proBNP >35,000(H) <=124 pg/mL [facility] Blood 05/11/2023 7:11 PM EDT 05/11/2023 7:26 PM EDT Narrative Resulting Agency Comment Spec In Lab Radha Hollins MD CHEMISTRY ORDERABL ES Performing Organization Address City/[facility] Co de Phone Number [facility] [place] [address] * (ABNORMAL) Lactate, whole blood, send to lab ([facility] (05/11/2023 2:47 PM EDT) Lactate WB 2.9(H) 0.5 - 2.2 mmol/L [facility] Blood 05/11/2023 2:47 PM EDT 05/11/2023 2:53 PM EDT Narrative Resulting Agency Comment Spec In Lab Juan Luis Gonzalez MD CHEMISTRY ORDERABLES Performing Organization Address City/State/[facility] Co de Phone Number [facility] [place] [address] * (ABNORMAL) CT Angiogram Abdomen & Pelvis [...] who have questions please contact the health geriatric care manager that requested your imaging first. [...] who have questions please contact the health geriatric care manager that requested your imaging first. ? Electronically signed by: Cullen Narayanan MD, [facility] ([phone]), at 05/11/2023 4:37 PM Narrative 05/11/2023 4:37 [...] 610 mm2 Circumference: 88 mm Calcification: Mild Bnpyhzl-tf-[id number] height: Left: 6.2 mm Right: 5.8 mm THORACIC AORTA Description: Normal course and caliber. ??Mild diffuse atherosclerotic changes. No acute aortopathy noted. Jigger Crown Pouncing Machine Operator dimensions: Aortic root: 27.6 mm [...] 610 mm2 Circumference: 88 mm Calcification: Mild Vohzies-zi-lljotqwl height: Left: 6.2 mm Right: 5.8 mm THORACIC AORTA Description: Normal course and caliber. Mild diffuse atheroscleroticchanges. No acute aortopathy noted. Jigger Crown Pouncing Machine Operator dimensions: Aortic root: 27.6 mm [...] patients who have questions please contactthe health geriatric care manager that requested your imaging first. Electronically signed by: Cullen Narayanan MD, [facility]([phone]), at 05/11/2023 4:37 PM Antelmo Sharma MD IMG CT ORDERABLES * (ABNORMAL) Lactate, whole blood, send to lab ([facility] (05/11/2023 9:29 AM EDT) Lactate WB 3.1(H) 0.5 - 2.2 mmol/L [facility] Blood 05/11/2023 9:29 AM EDT 05/11/2023 9:38 AM EDT Narrative Resulting Agency Comment Spec In Lab Juan Luis Gonzalez MD CHEMISTRY ORDERABLES [facility] [place] [address] * (ABNORMAL) Differential, Automated (05/11/2023 4:42 AM EDT) Neutrophil % 78.1 % [facility] Neutrophil Absolute 5.46 1.70 - 6.10 x10(3)/mc L [facility] Lymph % 10.6 % [facility] Lymphocytes Abs 0.7(L) 0.9 - 3.2 x10(3)/mc L [facility] Monocyte % 9.6 % [facility] Monocyte Abs 0.7 0.3 - 0.9 x10(3)/mc L [facility] Eos % 0.0 % [facility] Eosinophils Abs 0.0 0.0 - 0.4 x10(3)/mc L [facility] Basophil % 0.4 % [facility] Baso Absolute 0.0 0.0 - 0.1 x10(3)/mc L [facility] Immature Gran % 1.30 % [facility] Comment: Immature granulocytes(IG's)percentage and absolute count will include metamyelocytes, myelocytes, and promyelocytes. Blood smears from CBCs yielding IG's will be scanned manually for concordance. If this scan disagrees with the automated IG or if promyelocytes are noted, a manual differential will be performed. Immature Gran Absolute 0.09(H) 0.00 - 0.04 x10(3)/mc L [facility] Blood 05/11/2023 4:42 AM EDT 05/11/2023 4:49 AM EDT Narrative Resulting Agency Comment Spec In Lab Klaudia Reid MD HEMATOLOGY OR DERABLES [facility] [place] [address] * (ABNORMAL) Hemogram (05/11/2023 4:42 AM EDT) White Blood Cell 7.0 4.0 - 9.5 x10(3)/mc L [facility] Red Blood Cell 3.44(L) 4.00 - 5.21 x10(6)/mc L [facility] Hemoglobin 11.1(L) 11.7 - 15.5 g/dL [facility] Hematocrit 32.7(L) 35.7 - 45.8 % [facility] Mean Cell Volume 95.1(H) 82.6 - 94.4 fL [facility] Mean Cell Hemoglobin 32.3(H) 27.1 - 32.0 pg [facility] Mean Cell Hemoglobin Concentration 33.9 31.7 - 35.0 g/dL [facility] Platelet 165 145 - 357 x10(3)/mc L [facility] RDW Standard Deviation 43.1 37.0 - 46.0 fL [facility] RDW coefficient of variation 12.7 11.5 - 14.1 % [facility] Mean Platelet Volume 10.1 7.6 - 12.9 fL [facility] NRBC% auto 0.0 % [facility] NRBC Absolute 0.000 0.000 - 0.000 x10(3)/mc L [facility] Blood 05/11/2023 4:42 AM EDT 05/11/2023 4:49 AM EDT Narrative Resulting Agency Comment Spec In Lab Klaudia Reid MD HEMATOLOGY OR DERABLES Performing Organization Address [facility] Co de Phone Number [facility] [place] [address] * Heparin (unfractionated) Level (05/11/2023 4:42 AM EDT) UF Heparin 0.46 IU/mL [facility] Comment: Heparin (anti-Xa) [...] ORDERAB LES Performing Organization Address [facility] Co de Phone Number [facility] [place] [address] * (ABNORMAL) Comprehensive metabolic panel (non-fasting) (05/11/2023 4:42 AM EDT) Pathologist [facility] Glucose 143 65 - 199 mg/dL [facility] Comment:Diabetes: >=200 mg/d L plus symptoms Blood Urea Nitrogen 42(H) 8 - 18 mg/dL [facility] Creatinine 1.24(H) 0.70 - 1.20 mg/dL [facility] Sodium 134(L) 135 - 145 mmol/L [facility] Potassium 4.6 3.5 - 5.0 mmol/L [facility] Comment: Please note: ??Patients with WBC >100,000 may have falsely elevated Potassium levels. ??For accurate Potassium quantification in these patients send serum separator tube (gold top) for subsequent determinations. ??Contact the Clinical Chemistry Laboratory if there are any questions. Chloride 99 98 - 107 mmol/L [facility] Carbon Dioxide 14(L) 22 - 31 mmol/L [facility] Anion Gap 21(H) 5 - 15 mmol/L [facility] Calcium 9.6 8.5 - 10.5 mg/dL [facility] Protein, Total 7.2 6.1 - 8.0 g/dL [facility] Albumin 3.7 3.2 - 5.2 g/dL [facility] Aspartate Aminotransferase 144(H) 0 - 30 unit/L [facility] Comment:result rechecked-ssc Alanine Aminotransferase 130(H) 0 - 30 unit/L [facility] Comment:result rechecked-ssc Alkaline Phosphatase 72 35 - 105 unit/L [facility] Bilirubin, Total 0.8 0.2 - 1.3 mg/dL [facility] Est Glomerular Filtration Rate 48(L) >=60 mL/min/1. 73 m?? [facility] Comment: This patient's estimated GFR was [...] ORDERABL ES [facility] [place] [address] * EKG 12 Lead (05/10/2023 1:16 PM EDT) Ventricular rate 118 BPM MUSE SYSTEM Atrial Rate 118 BPM MUSE SYSTEM P-R Interval 152 ms MUSE SYSTEM QRS Duration 104 ms MUSE SYSTEM Q-T Interval 316 ms MUSE SYSTEM QTC Calculated (Bezet) 442 ms MUSE SYSTEM Calculated P Brixey 29 degrees MUSE SYSTEM Calculated R Brixey 18 degrees MUSE SYSTEM Calculated T Brixey -173 degrees MUSE SYSTEM INTERPRETATION Sinus tachycardia Minimal voltage criteria for LVH, may be normal variant ( Center product ) Septal infarct , age undetermined ST & T wave abnormality, consider lateral ischemia Abnormal ECG When compared with ECG of 10-MAY-2023 07:59, Fusion complexes are no longer Present Premature ventricular complexes are no longer Present ST no longer depressed in Anterior leads Confirmed by MD Villareal Danette ([id number]) on 05/10/2023 8:47:46 PM MUSE SYSTEM 05/10/2023 1:16 PM EDT 05/10/2023 8:47 PM EDT Juan Luis Gonzalez MD ECG ORDERABLES MUSE SYSTEM * Lactate, whole blood, send to lab ([facility] (05/10/2023 11:52 AM EDT) Lactate WB 1.8 0.5 - 2.2 mmol/L [facility] Blood 05/10/2023 11:5 2 AM EDT 05/10/2023 12:13 PM EDT Narrative Resulting Agency Comment Spec In Lab Juan Luis Gonzalez MD CHEMISTRY ORDERABLES [facility] [place] [address] * XR Chest One View (05/10/2023 11:16 [...] who have questions please contact the health geriatric care manager that requested your imaging first. ? Electronically signed by: ALIX RUVALCABA MD, [facility] ([phone]), at 05/10/2023 1:25 PM Narrative 05/10/2023 1:25 [...] patients who have questions please contactthe health geriatric care manager that requested your imaging first. Electronically signed by: ALIX RUVALCABA MD, [facility]([phone]), at 05/10/2023 1:25 PM Juan Luis Gonzalez MD IMG DX ORDERABLES * EKG 12 Lead (05/10/2023 7:59 AM EDT) Ventricular rate 115 BPM MUSE SYSTEM Atrial Rate 115 BPM MUSE SYSTEM P-R Interval 142 ms MUSE SYSTEM QRS Duration 102 ms MUSE SYSTEM Q-T Interval 322 ms MUSE SYSTEM QTC Calculated (Bezet) 445 ms MUSE SYSTEM Calculated P Brixey 36 degrees MUSE SYSTEM Calculated R Brixey 28 degrees MUSE SYSTEM Calculated T Brixey -119 degrees MUSE SYSTEM INTERPRETATION Sinus tachycardia [...] Differential, Automated (05/10/2023 2:28 AM EDT) Pathologist [facility] Neutrophil % 77.1 % [facility] Neutrophil Absolute 4.01 1.70 - 6.10 x10(3)/mc L [facility] Lymph % 14.0 % [facility] Lymphocytes Abs 0.7(L) 0.9 - 3.2 x10(3)/mc L [facility] Monocyte % 7.7 % [facility] Monocyte Abs 0.4 0.3 - 0.9 x10(3)/mc L [facility] Eos % 0.4 % [facility] Eosinophils Abs 0.0 0.0 - 0.4 x10(3)/mc L [facility] Basophil % 0.4 % [facility] Baso Absolute 0.0 0.0 - 0.1 x10(3)/mc L [facility] Immature Gran % 0.40 % [facility] Comment: Immature granulocytes(IG's)percentage and absolute count will include metamyelocytes, myelocytes, and promyelocytes. Blood smears from CBCs yielding IG's will be scanned manually for concordance. If this scan disagrees with the automated IG or if promyelocytes are noted, a manual differential will be performed. Immature Gran Absolute 0.02 0.00 - 0.04 x10(3)/mc L [facility] Blood 05/10/2023 2:28 AM EDT 05/10/2023 2:57 AM EDT Narrative Resulting Agency Comment Spec In Lab Klaudia Reid MD HEMATOLOGY OR DERABLES [facility] [place] [address] * (ABNORMAL) Hemogram (05/10/2023 2:28 AM EDT) White Blood Cell 5.2 4.0 - 9.5 x10(3)/mc L [facility] Red Blood Cell 3.11(L) 4.00 - 5.21 x10(6)/mc L [facility] Hemoglobin 10.2(L) 11.7 - 15.5 g/dL [facility] Hematocrit 30.2(L) 35.7 - 45.8 % [facility] Mean Cell Volume 97.1(H) 82.6 - 94.4 fL [facility] Mean Cell Hemoglobin 32.8(H) 27.1 - 32.0 pg [facility] Mean Cell Hemoglobin Concentration 33.8 31.7 - 35.0 g/dL [facility] Platelet 151 145 - 357 x10(3)/mc L [facility] RDW Standard Deviation 44.9 37.0 - 46.0 fL [facility] RDW coefficient of variation 12.8 11.5 - 14.1 % [facility] Mean Platelet Volume 9.8 7.6 - 12.9 fL [facility] NRBC% auto 0.0 % [facility] NRBC Absolute 0.000 0.000 - 0.000 x10(3)/mc L [facility] Blood 05/10/2023 2:28 AM EDT 05/10/2023 2:57 AM EDT Narrative Resulting Agency Comment Spec In Lab Klaudia Reid MD HEMATOLOGY OR DERABLES [facility] [address] [place] [address] * (ABNORMAL) Comprehensive metabolic panel (non-fasting) (05/10/2023 2:28 AM EDT) Glucose 100 65 - 199 mg/dL [facility] Comment:Diabetes: >=200 mg/d L plus symptoms Blood Urea Nitrogen 30(H) 8 - 18 mg/dL [facility] Creatinine 0.90 0.70 - 1.20 mg/dL [facility] Sodium 134(L) 135 - 145 mmol/L [facility] Potassium 4.1 3.5 - 5.0 mmol/L [facility] Comment: Please note: ??Patients with WBC >100,000 may have falsely elevated Potassium levels. ??For accurate Potassium quantification in these patients send serum separator tube (gold top) for subsequent determinations. ??Contact the Clinical Chemistry Laboratory if there are any questions. Chloride 102 98 - 107 mmol/L [facility] Carbon Dioxide 20(L) 22 - 31 mmol/L [facility] Anion Gap 12 5 - 15 mmol/L [facility] Calcium 9.3 8.5 - 10.5 mg/dL [facility] Protein, Total 6.4 6.1 - 8.0 g/dL [facility] Albumin 3.7 3.2 - 5.2 g/dL [facility] Aspartate Aminotransferase 24 0 - 30 unit/L [facility] Alanine Aminotransferase 14 0 - 30 unit/L [facility] Alkaline Phosphatase 70 35 - 105 unit/L [facility] Bilirubin, Total 0.5 0.2 - 1.3 mg/dL [facility] Est Glomerular Filtration Rate 70 >=60 mL/min/1. 73 m?? [facility] Comment: This patient's estimated GFR was [...] ES Performing Organization Address [facility] [place] [address] * Heparin (unfractionated) Level (05/10/2023 2:28 AM EDT) UF Heparin 0.37 IU/mL [facility] Comment: Heparin (anti-Xa) [...] ORDERAB LES Performing Organization Address [facility]/ZIP Co de Phone Number [facility] [place] [address] * (ABNORMAL) Differential, Automated (05/09/2023 4:00 AM EDT) Neutrophil % 81.7 % [facility] Neutrophil Absolute 5.26 1.70 - 6.10 x10(3)/mc L [facility] Lymph % 10.7 % [facility] Lymphocytes Abs 0.7(L) 0.9 - 3.2 x10(3)/mc L [facility] Monocyte % 6.5 % [facility] Monocyte Abs 0.4 0.3 - 0.9 x10(3)/ L [facility] Eos % 0.5 % [facility] Eosinophils Abs 0.0 0.0 - 0.4 x10(3)/mc L [facility] Basophil % 0.3 % [facility] Baso Absolute 0.0 0.0 - 0.1 x10(3)/ L [facility] Immature Gran % 0.30 % [facility] Comment: Immature granulocytes(IG's)percentage and absolute count will include metamyelocytes, myelocytes, and promyelocytes. Blood smears from CBCs yielding IG's will be scanned manually for concordance. If this scan disagrees with the automated IG or if promyelocytes are noted, a manual differential will be performed. Immature Gran Absolute 0.02 0.00 - 0.04 x10(3)/ L [facility] Blood 05/09/2023 4:00 AM EDT 05/09/2023 4:19 AM EDT Narrative Resulting Agency Comment Spec In Lab Klaudia Reid MD HEMATOLOGY OR DERABLES Performing Organization Address City/State/[facility] Co de Phone Number [facility] [place] [address] * (ABNORMAL) Hemogram (05/09/2023 4:00 AM EDT) White Blood Cell 6.4 4.0 - 9.5 x10(3)/mc L [facility] Red Blood Cell 3.15(L) 4.00 - 5.21 x10(6)/mc L [facility] Hemoglobin 10.2(L) 11.7 - 15.5 g/dL [facility] Hematocrit 30.3(L) 35.7 - 45.8 % [facility] Mean Cell Volume 96.2(H) 82.6 - 94.4 fL [facility] Mean Cell Hemoglobin 32.4(H) 27.1 - 32.0 pg [facility] Mean Cell Hemoglobin Concentration 33.7 31.7 - 35.0 g/dL [facility] Platelet 151 145 - 357 x10(3)/mc L [facility] RDW Standard Deviation 44.7 37.0 - 46.0 fL [facility] RDW coefficient of variation 12.8 11.5 - 14.1 % [facility] Mean Platelet Volume 9.4 7.6 - 12.9 fL [facility] NRBC% auto 0.0 % [facility] NRBC Absolute 0.000 0.000 - 0.000 x10(3)/mc L [facility] Blood 05/09/2023 4:00 AM EDT 05/09/2023 4:19 AM EDT Narrative Resulting Agency Comment Spec In Lab Klaudia Reid MD HEMATOLOGY OR DERABLES [facility] [place] [address] * Heparin (unfractionated) Level (05/09/2023 4:00 AM EDT) UF Heparin 0.47 IU/mL [facility] Comment: Heparin (anti-Xa) levels should [...] ORDERAB LES [facility] [place] [address] * (ABNORMAL) Comprehensive metabolic panel (non-fasting) (05/09/2023 4:00 AM EDT) Glucose 108 65 - 199 mg/dL [facility] Comment:Diabetes: >=200 mg/d L plus symptoms Blood Urea Nitrogen 31(H) 8 - 18 mg/dL [facility] Creatinine 1.03 0.70 - 1.20 mg/dL [facility] Sodium 137 135 - 145 mmol/L [facility] Potassium 4.4 3.5 - 5.0 mmol/L [facility] Comment: Please note: ??Patients with WBC >100,000 may have falsely elevated Potassium levels. ??For accurate Potassium quantification in these patients send serum separator tube (gold top) for subsequent determinations. ??Contact the Clinical Chemistry Laboratory if there are any questions. Chloride 102 98 - 107 mmol/L [facility] Carbon Dioxide 20(L) 22 - 31 mmol/L [facility] Anion Gap 15 5 - 15 mmol/L [facility] Calcium 9.3 8.5 - 10.5 mg/dL [facility] Protein, Total 6.6 6.1 - 8.0 g/dL [facility] Albumin 3.8 3.2 - 5.2 g/dL [facility] Aspartate Aminotransferase 32(H) 0 - 30 unit/L [facility] Alanine Aminotransferase 18 0 - 30 unit/L [facility] Alkaline Phosphatase 78 35 - 105 unit/L [facility] Bilirubin, Total 0.5 0.2 - 1.3 mg/dL [facility] Est Glomerular Filtration Rate 60 >=60 mL/min/1. 73 m?? [facility] Comment: This patient's estimated GFR was [...] ES Performing Organization Address [facility]/ZIP Co de Phone Number [facility] [place] [address] * (ABNORMAL) pro-Brain Natriuretic Peptide (05/08/2023 4:00 PM EDT) NT-proBNP 25,503(H) <=124 pg/mL [facility] Blood Venous Draw / Unknown 05/08/2023 4:00 PM EDT 05/08/2023 4:25 PM EDT Narrative Resulting Agency Comment Spec In Lab Juan Luis Gonzalez MD CHEMISTRY ORDERABLES Performing Organization Address [facility] Co de Phone Number [facility] [place] [address] * Magnesium (05/08/2023 4:00 PM EDT) Magnesium 0.82 0.69 - 1.07 mmol/L [facility] Blood 05/08/2023 4:00 PM EDT 05/08/2023 4:06 PM EDT Narrative Resulting Agency Comment Spec In Lab Enrique Chua MD CHEMISTRY ORDERABLES Performing Organization Address [facility] Co de Phone Number [facility] [place] [address] * Potassium (05/08/2023 4:00 PM EDT) Potassium 3.9 3.5 - 5.0 mmol/L [facility] Comment: Please note: ??Patients with WBC [...] ORDERABL ES Performing Organization Address [facility] de Phone Number [facility] [place] [address] * Heparin (unfractionated) Level (05/08/2023 4:00 PM EDT) Pathologist [facility] UF Heparin 0.43 IU/mL [facility] Comment: Heparin (anti-Xa) [...] MD HEMATOLOGY ORDERAB LES Performing Organization Address [facility] Co de Phone Number [facility] [place] [address] * EKG 12 Lead (05/08/2023 3:51 PM EDT) Ventricular rate 98 BPM MUSE SYSTEM Atrial Rate 98 BPM MUSE SYSTEM P-R Interval 150 ms MUSE SYSTEM QRS Duration 102 ms MUSE SYSTEM Q-T Interval 358 ms MUSE SYSTEM QTC Calculated (Bezet) 457 ms MUSE SYSTEM Calculated P Brixey 38 degrees MUSE SYSTEM Calculated R Brixey 48 degrees MUSE SYSTEM Calculated T Brixey -112 degrees MUSE SYSTEM INTERPRETATION Sinus rhythm with frequent and consecutive Premature ventricular and fusion complexes Septal infarct , age undetermined ST & T wave abnormality, consider anterolateral ischemia Abnormal ECG When compared with ECG of 09-NOV-2022 11:17, T wave inversion now evident in Anterolateral leads Confirmed by MD Harshil, Enrique Bell ([id number]) on 05/10/2023 8:11:46 AM MUSE SYSTEM 05/08/2023 3:51 PM EDT 05/10/2023 8:11 AM EDT Radha Hollins MD ECG ORDERABLES MUSE SYSTEM * (ABNORMAL) Differential, Automated (05/08/2023 11:38 AM EDT) Neutrophil % 71.3 % [facility] Neutrophil Absolute 2.91 1.70 - 6.10 x10(3)/mc L [facility] Lymph % 19.1 % [facility] Lymphocytes Abs 0.8(L) 0.9 - 3.2 x10(3)/mc L [facility] Monocyte % 9.0 % [facility] Monocyte Abs 0.4 0.3 - 0.9 x10(3)/mc L [facility] Eos % 0.2 % [facility] Eosinophils Abs 0.0 0.0 - 0.4 x10(3)/mc L [facility] Basophil % 0.2 % [facility] Baso Absolute 0.0 0.0 - 0.1 x10(3)/mc L [facility] Immature Gran % 0.20 % [facility] Comment: Immature granulocytes(IG's)percentage and absolute count will include metamyelocytes, myelocytes, and promyelocytes. Blood smears from CBCs yielding IG's will be scanned manually for concordance. If this scan disagrees with the automated IG or if promyelocytes are noted, a manual differential will be performed. Immature Gran Absolute 0.01 0.00 - 0.04 x10(3)/mc L [facility] Blood 05/08/2023 11:3 8 AM EDT 05/08/2023 11:44 AM EDT Narrative Resulting Agency Comment Spec In Lab Lincoln Sal MD HEMATOLOGY ORDERA BLES [facility] [place] [address] * (ABNORMAL) Hemogram (05/08/2023 11:38 AM EDT) White Blood Cell 4.1 4.0 - 9.5 x10(3)/mc L [facility] Red Blood Cell 3.05(L) 4.00 - 5.21 x10(6)/mc L [facility] Hemoglobin 10.2(L) 11.7 - 15.5 g/dL [facility] Hematocrit 29.6(L) 35.7 - 45.8 % [facility] Mean Cell Volume 97.0(H) 82.6 - 94.4 fL [facility] Mean Cell Hemoglobin 33.4(H) 27.1 - 32.0 pg [facility] Mean Cell Hemoglobin Concentration 34.5 31.7 - 35.0 g/dL [facility] Platelet 136(L) 145 - 357 x10(3)/mc L [facility] RDW Standard Deviation 44.3 37.0 - 46.0 fL [facility] RDW coefficient of variation 12.6 11.5 - 14.1 % [facility] Mean Platelet Volume 9.4 7.6 - 12.9 fL [facility] NRBC% auto 0.0 % [facility] NRBC Absolute 0.000 0.000 - 0.000 x10(3)/ L [facility] Blood 05/08/2023 11:3 8 AM EDT 05/08/2023 11:44 AM EDT Narrative Resulting Agency Comment Spec In Lab Lincoln Sal MD HEMATOLOGY ORDERA BLES [facility] [place] [address] * TSH (05/08/2023 11:38 AM EDT) Thyroid Stimulating Hormone 1.27 0.27 - 4.20 mcIU/mL [facility] Comment: Reference Interval (mcIU/mL): Females: ??First Trimester: 0.23-3.88 ??Second Trimester: 0.22-3.90 ??Third Trimester: 0.44-4.66 Blood 05/08/2023 11:3 8 AM EDT 05/08/2023 11:44 AM EDT Narrative Resulting Agency Comment Spec In Lab Enrique Chua MD CHEMISTRY ORDERABLES Performing Organization Address City/[facility]/ZIP Co de Phone Number [facility] [place] [address] * (ABNORMAL) Phosphorus (05/08/2023 11:38 AM EDT) Phosphorus 4.7(H) 2.5 - 4.5 mg/dL [facility] Blood 05/08/2023 11:3 8 AM EDT 05/08/2023 11:44 AM EDT Narrative Resulting Agency Comment Spec In Lab Enrique Chua MD CHEMISTRY ORDERABLES Performing Organization Address [facility] Co de Phone Number [facility] [place] [address] * Magnesium (05/08/2023 11:38 AM EDT) Magnesium 0.76 0.69 - 1.07 mmol/L [facility] Blood 05/08/2023 11:3 8 AM EDT 05/08/2023 11:44 AM EDT Narrative Resulting Agency Comment Spec In Lab Enrique Chua MD CHEMISTRY ORDERABLES Performing Organization Address [facility] Co de Phone Number [facility] [place] [address] * (ABNORMAL) Basic Metabolic Panel (non-fasting) (05/08/2023 11:38 AM EDT) Glucose 97 65 - 199 mg/dL [facility] Comment:Diabetes: >=200 mg/d L plus symptoms Blood Urea Nitrogen 27(H) 8 - 18 mg/dL [facility] Creatinine 1.02 0.70 - 1.20 mg/dL [facility] Sodium 139 135 - 145 mmol/L [facility] Potassium 4.2 3.5 - 5.0 mmol/L [facility] Comment: Please note: ??Patients with WBC >100,000 may have falsely elevated Potassium levels. ??For accurate Potassium quantification in these patients send serum separator tube (gold top) for subsequent determinations. ??Contact the Clinical Chemistry Laboratory if there are any questions. Chloride 105 98 - 107 mmol/L [facility] Carbon Dioxide 20(L) 22 - 31 mmol/L [facility] Anion Gap 14 5 - 15 mmol/L [facility] Calcium 9.4 8.5 - 10.5 mg/dL [facility] Est Glomerular Filtration Rate 60 >=60 mL/min/1. 73 m?? [facility] Comment: This patient's estimated GFR was [...] In Lab Enrique Chua MD CHEMISTRY ORDERABLES [facility] [place] [address] * ECHO COMPLETE (05/08/2023 11:02 AM EDT) Pathologist [facility] EF 25 HEARTThirdPres[employer] SYSTEM Anatomical Region Laterality Modality Cardiac Other 05/08/2023 10:0 3 AM EDT Narrative 05/08/2023 11:51 AM EDT ? Echocardiogram Report Name: PURNIMA THACKER ?Study Date: 05/08/2023 10:03 AMBP: 92/64 mmHg ? Patient Location: [facility]^CV29^A : 1955 ? Height: 155 cm ? Account: [id number] Age: 67 yrs ? Weight: 78 kg Gender: Female ?BSA: 1.8 m2 Ordering Physician: ENRIQUE CHUA Referring Physician: MARIO ALBERTO CHIN Performed By: CHUCKIE Canchola Reason For Study: SAVR Stenosis Exam Location: [facility]. Interpretation Summary -Left ventricle is severely [...] worsening stenosis. Mitral regurgitation is similar. Procedure Complete-[id number]. Satisfactory quality. There is normal sinus rhythm. [...] Study Date: :03 AMBP: 92/64 mmHg Patient Location:[facility]^CV29^A : 1955 Height: 155 cm Account: [id number] Age: 67 yrs Weight: 78 kg Gender: Female BSA: 1.8 m2 Ordering Physician: ENRIQUE CHUA Referring Physician: MARIO ALBERTO CHIN Performed By: CHUCKIE Canchola Reason For Study: SAVR Stenosis Exam Location: [facility]. Interpretation Summary -Left ventricle is severely [...] suggestsworsening stenosis. Mitral regurgitation is similar. Procedure Complete-[id number]. Satisfactory quality. There is normal sinus rhythm. [...] 9:45 AM EDT) UF Heparin 0.54 IU/mL [facility] Comment: Heparin (anti-Xa) [...] Lab Enrique Chua MD HEMATOLOGY ORDERABLE S [facility] [place] [address] documented in this encounter Visit Diagnoses Diagnosis S/P TAVR (transcatheter aortic valve replacement)- Primary Aortic valve stenosis, etiology of cardiac valve disease unspecified Heart failure with reduced ejection fraction due to heart valve disease Mild coronary artery disease by [facility] 11/09/2022 Mixed connective tissue disease Other [...] ejection fraction Mild coronary artery disease by [facility] 11/09/2022 Stenosis of prosthetic aortic valve [...] dose on Wed05/12/23 at 1030, Until Discontinued, [place] teeth, Routine Given 05/12/2023 10:04 AM EDT [...] at 0831, Side port TKO rate, per [facility] flush protocol Rate/Dose Verify 05/13/2023 6:00 AM EDT 10 mL/hr 10 mL/hr Rate/Dose Verify 05/13/2023 4:00 AM EDT 10 mL/hr 10 mL/h r Rate/Dose Verify 05/13/2023 2:00 AM EDT 10 mL/hr 10 mL/h r sodium chloride 0.9% infusion 10-30 mL/hr, Intravenous, DAILY PRN, Starting on Wed05/12/23 at 0944, Until Wed05/17/23 at 0831, Side port TKO rate, per [facility] flush protocol. Rate/Dose Verify 05/17/2023 8:00 AM [...] Calhoun RN)1958 (Stopped - Provider: Favian Mckeon, VADLO) magnesium sulfate 2 g in sterile water [...] Discontinued, Routine 0029 (Given - Provider: Favian cMkeon RN)0130 (Not Given - Provider: Favian Mckeon [...] Routine documented in this encounter Care Teams 6Th Grade Teacher Relationship Specialty Start Date End Date Magdalena Acosta MD [address] [place] [address] PCP - General Family Medicine 02/05/23 documented as of this encounter
--- OUTSIDE RECORDS SUMMARY | 2024-04-25 16:15 | XMS_ITS | Encounter Summary ---
Author Organization [facility] [place] [address] Care Team Providers Care Greenhouse Assistant Name Role Phone Magdalena Acosta MD Primary Care Provider [phone] Encounter Details Date Type Department Care Team [...] AM EDT Appointment Hematology [place] [address] 05/12/2024 10:00 AM EDT Office Visit Hematology [place] [address] Markel Borjas MD [facility] [address] [place] [address] 03/01/2025 4:15 PM EDT Office Visit Dermatology at [place] [address] [place] [address] Marek Bonilla MD [address] [place] [address] documented as of this encounter Visit Diagnoses Not on filedocumented in this encounter Care Teams Greenhouse Assistant Relationship Specialty Start Date End Date Magdalena Acosta MD [address] [place] [address] PCP - General Family Medicine 02/05/23 documented as of this encounter
--- OUTSIDE RECORDS SUMMARY | 2024-04-25 16:16 | XMS_ITS | Encounter Summary ---
Author Organization [place] [id number] Care Team Providers Care Radio Talk Show Host Name Role Phone Magdalena Acosta MD Primary Care Provider [phone] Reason for Visit * Auth/Cert (Routine) Specialty Diagnoses / Procedures Referred By Contac t Referred To Contact Diagnoses Symptomatic severe aortic stenosis with low ejection fraction NSTEMI, CHF Haris Chua MD [facility] [place] [address] [facility] Referral ID Status Reason Start Date Expiration Date Visits Re quested Visits Authorized [id number] 1 1 Encounter Details Date Type Department Care Team (Late st Contact Info) Description 05/12/2023 7:35 AM EDT An[address]hesia [place] [address] Lynda Mcgowan MD [facility] [address] [place] [address] Alie Park MD [facility] [place] [address] Anesthesia Record Procedure Summary Procedure Name Responsible [...] cephalic vein (lateral side of arm), left; [id number] catheter system; Anatomical Landmarks; US Not Used; [...] RN LDA Cath/EP Sheath 05/12/23; 0733; 14 Lao (Fr); Right; Femoral; Arterial 05/12/23 0733 by Guerda Bender, RN 05/12/23 0830 by Guerda Bender RN LDA Cath/EP Sheath 05/12/23; 0734; 6 Lao (Fr); Right; Femoral; Venous 05/12/23 0734 by Guerda Bender RN 05/12/23 0817 by Guerda Bender RN LDA Cath/EP Sheath 05/12/23; 0734; 7 Lao (Fr); Left; Femoral; Arterial 05/12/23 0734 by Guerda Bender, RN 05/12/23 0837 by Guerda Bender RN LDA Cath/EP Sheath 05/12/23; 0734; 6 Lao (Fr); Left; Femoral; Venous 05/12/23 0734 by [...] Procedure Summary Date: 05/12/23 Room / Location: CHIEF QUALITY OFFICER / [facility] CATH [facility]S Anesthesia Start: 734 Anesthesia [...] All Anesthesia Providers: Anesthesiologist: Lynda Mcgowan MD Drawer Waxer: Nico Graham MD Vitals Value Taken Time [...] 05/08/2023 ??? Mild coronary artery disease by [facility] 11/09/2022 05/08/2023 ??? Heart failure with [...] IMG S&I N/A 11/09/2022 CORONARY ANGIOGRAPHY; W [facility],POSSIBLE PCI (WRVU 5.6) performed by Nitesh Escobedo MD at [facility] CATH LABS ??? PRO AORTOPLAS FOR SUPRAVALV STEN N/A 09/21/2016 @AORTOPLASTY FOR SUPRAVALVULAR STENOSIS (WRVU 29.33) performed by Alirio Esparza MD at [facility] MAIN OR ??? PRO REPLACEMENT PROSTHETIC AORTIC VALVE OPEN W CARDIOPULMONARY BYPASS HOMOGRF/STENT N/A 09/21/2016 @REPLACE AORTIC VALVE, OPEN, W\CPB, W\PROSTHETIC VALVE (WRVU 41.32) performed by Alirio Esparza MD at [facility] MAIN OR Social History Tobacco Use [...] 3 general, with a(n) intravenous induction Add-on [id number] TAVR. In cardiogenic shock. Has arterial line, [...] AM EDT Appointment H[place]ology [place] [address] 05/12/2024 10:00 AM EDT Office Visit Hematology [place] [address] Markel Borjas MD [facility] [address] HEMATOLOGY [place] [address] 03/01/2025 4:15 PM EDT Office Visit Dermatology at [place] [address] [place] [address] Marek Bonilla MD [address], [place] [address] documented as of this encounter Visit Diagnoses [...] mL/hr documented in this encounter Care Teams Radio Talk Show Host Relationship Specialty Start Date End Date Magdalena Acosta MD [address] [place] [address] PCP - General Family Medicine 02/05/23 documented as of this encounter
--- OUTSIDE RECORDS SUMMARY | 2024-04-25 16:17 | XMS_ITS | Encounter Summary ---
Author Organization [facility] [place] [address] Care Team Providers Care Feed Project Engineer Name Role Phone Magdalena Acosta MD Primary Care Provider [phone] Encounter Details Date Type Department Care Team [...] AM EDT Appointment Hematology [place] [address] 05/12/2024 10:00 AM EDT Office Visit Hematology [place] [address] Markel Borjas MD [facility] [address] HEM[place] [address] 03/01/2025 4:15 PM EDT Office Visit Dermatology at [place] [address] [place] [phone] Marek Bonilla MD [address] [facility], [place] [address] documented as of this encounter Visit Diagnoses Not on filedocumented in this encounter Care Teams Feed Project Engineer Relationship Specialty Start Date End Date Magdalena Acosta MD [address] [place] [address] PCP - General Family Medicine 02/05/23 documented as of this encounter
--- OUTSIDE RECORDS SUMMARY | 2024-04-25 16:17 | XMS_ITS | Encounter Summary ---
Author Organization [facility] [place] [address] Care Team Providers Care Timber Trimmer Name Role Phone Junaid Deborah Shields APRN Primary Care Provider [phone] Encounter Details Date Type Department Care Team (Latest Contact Info) Description 11/09/2022 10:37 AM EDT - 11/09/2022 4:53 PM EDT Hospital Encounter [place] [address] Nitesh Escobedo MD [facility] [place] [address] Aortic valve stenosis, etiology of cardiac valve [...] PM Marek Bonilla MD [facility] New Medications to be Picked Up None For questions regarding this document or issues relating to this hospitalization on the Medical Service, please contact your inpatient physician through the [facility] Licensed Sales Producer . Issues afterhours and on weekends will be handled by the Hospitalist staff on-call. * Attachments The following attachments cannot be sent through Care Everywhere. * Coronary Angiogram: Post-op (Lithuanian) * Right Heart Catheterization: Pulmonary Artery Catheterization: Post-op (Lithuanian) documented in this encounter Medications at Time [...] MD - 11/09/2022 11:20 AM EDT . [facility] Interventional Cardiology Adult Pre-Procedure H&P Update: Cardiac Catheterization Purnima Thacker [id number] 1955 Chief Complaint: BONILLA HPI: Purnima Thacker [...] Marrero MD Interventional Cardiology 11/09/22 11:43 AM [facility] Pager: [phone] documented in this encounter Plan of Treatment Upcoming Encounters Date Type Department Care Team (Late st Contact Info) Description 05/12/2024 9:00 AM EDT Appointment Hematology [place] [address] 05/12/2024 10:00 AM EDT Office Visit Hematology [place] [address] Markel Borjas MD [facility] [address] [place] [address] 03/01/2025 4:15 PM EDT Office Visit Dermatology at [place] [address] [place] [address] Marek Bonilla MD [address], [place] [address] documented as of this encounter Procedures Procedure Name Priority Date/Time Associated Diagnosis Comments CARDIAC CATHETERIZATION Routine 11/10/19 23 1:05 PM EDT Aortic valve stenosis, etiology of cardiac valve disease unspecified Cath Plmt Left Heart Cath & Arts W/Inj & Angio Img S&I ([id number]) 11/09/2022 11:51 AM EDT Aortic valve stenosis, etiology of cardiac valve disease unspecified EKG 12-LEAD Routine 11/09/2022 11:17 AM EDT Aortic valve stenosis, etiology of cardiac valve disease unspecified documented in this encounter Results * CARDIAC CATHETERIZATION (11/09/2022 1:05 PM EDT) Anatomical Region Laterality Modality Other Narrative 11/09/2022 2:01 PM EDT ?[facility] ? Cardiac Catheterization/Intervention Report ? Patient Name: Kirstie, Purnima M. ? Procedure Date: 11/09/2022 ? A #: [id number] ? Primary Physician: Nitesh Escobedo ? Case #: [id number] ? File Name: [id number] ? Catheterization Order Number: [id number] ? [facility] ? Final Report [place], [place] ? Patient Name: ? Purnima M. Kirstie ? ID#: ?[id number] ? : ?1955 ? Procedure Date: ? November 09, 2022 ? Case #: ? [id number] ? Room: ? 1 ? Case Physician: [...] (Bezet) 457 ms MUSE SYSTEM Calculated P [place] 44 degrees MUSE SYSTEM Calculated R [place] 33 degrees MUSE SYSTEM Calculated T [place] 30 degrees MUSE SYSTEM INTERPRETATION Sinus rhythm Occasional Premature ventricular complexes Otherwise normal ECG When compared with ECG of 21-SEP-2016 12:26, Premature ventricular complexes are now Present CO interval has decreased Nonspecific T wave abnormality has replaced inverted T waves in Inferior leads I personally reviewed the tracing and edited the fellows interpretation Confirmed by fellow MD Anitha, Carissa ([id number]) on 11/09/2022 6:17:28 PM Confirmed by Elsa [...] MD) documented in this encounter Care Teams Timber Trimmer Relationship Specialty Start Date End Date Deborah Quiroga, 21 DEALER PCP - General Family Medicine 03/24/16 02/04/23 documented as of this encounter
--- OUTSIDE RECORDS SUMMARY | 2024-04-25 16:17 | XMS_ITS | Encounter Summary ---
[place] [address] Care Team Providers Care Plate Preparer Name Role Phone Magdalena Acosta MD Primary Care Provider [phone] Reason for Visit * Reason Comments Skin Lesion Encounter Details Date Type Department Care Team (Late st Contact Info) Description 04/20/2023 10:00 AM EDT Office Visit Dermatology at [address] [address] Marek Bonilla MD [address] [facility] [place] [address] Seborrheic keratosis Social History Tobacco Use Types [...] cutaneous and ocular 3. Previously told by medical sales associate that she had corneal tears from her [...] AM EDT Appointment Hematology [place] [address] 05/12/2024 10:00 AM EDT Office Visit Hematology [place] [address] Markel Borjas MD [facility] [address] [place] [address] 03/01/2025 4:15 PM EDT Office Visit Dermatology at [address] [place] [address] Marek Bonilla MD [address] [facility], [place] [address] documented as of this encounter Visit Diagnoses Diagnosis Seborrheic keratosis Other seborrheic keratosis documented in this encounter Care Teams Plate Preparer Relationship Specialty Start Date End Date Magdalena Acosta MD [address] [place] [address] PCP - General Family Medicine 02/05/23 documented as of this encounter
--- OUTSIDE RECORDS SUMMARY | 2024-04-25 16:17 | XMS_ITS | Encounter Summary ---
Author Organization [facility] [place] [address] Care Team Providers Care Vehicle Controls Engineer Name Role Phone Magdalena Acosta MD Primary Care Provider [phone] Encounter Details Date Type Department Care Team (Late st Contact Info) Description 03/29/2023 Notes Only Cardiology at [address] [phone] Vahid Plasencia, RN Social History Tobacco Use [...] 82/51; Mild AR; Moderate MR; Trace TR [facility] 11/09/2022: Non obstructive CAD STS 4.1 Plan:Schedule SDM clinic, diagnostics and frailty assessment. documented in this encounter Plan of Treatment Upcoming Encounters Date Type Department Care Team (Late st Contact Info) Description 05/12/2024 9:00 AM EDT Appointment Hematology [place] [address] 05/12/2024 10:00 AM EDT Office Visit Hematology [place] [address] Markel Borjas MD [facility] [address] [place] [address] 03/01/2025 4:15 PM EDT Office Visit Dermatology at [place] [address] [place] [address] Marek Bonilla MD [address], [place] [address] documented as of this encounter Visit Diagnoses Not on filedocumented in this encounter Care Teams Vehicle Controls Engineer Relationship Specialty Start Date End Date Magdalena Acosta MD [address] [place] [address] PCP - General Family Medicine 02/05/23 documented as of this encounter
--- OUTSIDE RECORDS SUMMARY | 2024-04-25 16:17 | XMS_ITS | Encounter Summary ---
Author Organization [facility] Address [facility] [place] [address] Care Team Providers Care Top Collar Maker Name Role Phone Ashley Quirogazac Shields APRN Primary Care Provider [phone] Reason for Referral * Consultation (Routine) - Closed Specialty Diagnoses / Procedures Referred By Contac t Referred To Contact Neurology Diagnoses Neck pain Popeye Rogers MD [facility] [place] [address] Kyra Haas MD [facility] [address] [address] Referral ID Status Reason Start Date Expiration Date V isits Requested Visits Authorized [id number] Closed Consult, Test & Treat 06/29/2022 06/29/2023 1 1 Reason for Visit * Reason Comments Neck Pain Weak in both arms, p ain and tingling in arms and hands Encounter Details Date Type Department Care Team (Late st Contact Info) Description 06/29/2022 10:20 AM EST Office Visit [place] [address] Popeye Rogers MD [facility] [place] [address] Neck pain Social History Tobacco Use Types [...] have EMG and nerve conduction studies in [place] that showed carpal tunnel syndrome. I do not have a copy of that report. documented in this encounter Plan of Treatment Upcoming Encounters Date Type Department Care Team (Late st Contact Info) Description 05/12/2024 9:00 AM EDT Appointment [place]ology [place] [address] 05/12/2024 10:00 AM EDT Office Visit Hematology [place] [address] Markel Borjas MD [facility] [address] HEMATOLOGY [place] [address] 03/01/2025 4:15 PM EDT Office Visit Dermatology at [address] [place] [address] Marek Bonilla MD [address] [place] [address], [place] [address] Scheduled Referrals Name Type Priority Associated Diagnoses Orde r Schedule Referral to Neurology Outpatient Referral Routine Neck pain Ordered: 06/29/2022 documented as of this encounter Visit Diagnoses Diagnosis Neck pain Cervicalgia documented in this encounter Care Teams Top Collar Maker Relationship Specialty Start Date End Date Deborah Quiroga APRN PCP - General Family Medicine 03/24/16 02/04/23 documented as of this encounter
--- OUTSIDE RECORDS SUMMARY | 2024-04-25 16:17 | XMS_ITS | Encounter Summary ---
Author Organization [facility] [place] [address] Care Team Providers Care Sawmill Supervisor Name Role Phone Ashley Quirogazac Shields APRN Primary Care Provider [phone] Encounter Details Date Type Department Care Team [...] Hematology [place] [address] 05/12/2024 10:00 AM EDT Office Visit Hematology [place] [address] Markel Borjas MD [facility] [address] [place] [address] 03/01/2025 4:15 PM EDT Office Visit Dermatology at [place] [address] [facility] [place] [address] Marek Bonilla MD [address] [facility] [place] [address] documented as of this encounter Visit Diagnoses Not on filedocumented in this encounter Care Teams Sawmill Supervisor Relationship Specialty Start Date End Date Deborah Quiroga APRN PCP - General Family Medicine 03/24/16 02/04/23 documented as of this encounter
--- OUTSIDE RECORDS SUMMARY | 2024-04-25 16:17 | XMS_ITS | Encounter Summary ---
[place] [address] Care Team Providers Care Electronic Gaming Device Supervisor Name Role Phone Magdalena Acosta MD Primary Care Provider [phone] Reason for Visit * Reason Comments Suture / Staple Removal Encounter Details Date Type Department Care Team (Late st Contact Info) Description 02/16/2023 10:00 AM EDT Office Visit Dermatology at [place] [address] [facility] [place] [address] Marek Bonilla MD [address] [facility] DERMATOLOGY [place], [place] [address] Visit for suture removal Social History Tobacco [...] AM EDT Appointment Hematology [place] [address] 05/12/2024 10:00 AM EDT Office Visit Hematology [place] [address] Markel Borjas MD [facility] [address] HEMATOLOGY [place] [address] 03/01/2025 4:15 PM EDT Office Visit Dermatology at [place] [address] [facility] [place] [address] Marek Bonilla MD [address] [place] [address] documented as of this encounter Visit Diagnoses Diagnosis Visit for suture removal Encounter for removal of sutures documented in this encounter Care Teams Electronic Gaming Device Supervisor Relationship Specialty Start Date End Date Magdalena Acosta MD [address] [place] [address] PCP - General Family Medicine 02/05/23 documented as of this encounter
--- OUTSIDE RECORDS SUMMARY | 2024-04-25 16:17 | XMS_ITS | Encounter Summary ---
[place] [address] Care Team Providers Care Supervisor Felling Bucking Name Role Phone Magdalena Acosta MD Primary Care Provider [phone] Reason for Visit * Reason Comments Annual Exam Encounter Details Date Type Department Care Team (Late st Contact Info) Description 02/05/2023 2:30 PM EDT Office Visit Dermatology at [address] [address] Marek Bonilla MD [address] [facility], [facility] [place] [address] Rosacea; Ocular rosacea; Nevus Social History Tobacco [...] and ocular 2. Previously told by data analyst that she had corneal tears from her [...] AM EDT Appointment Hematology [place] [address] 05/12/2024 10:00 AM EDT Office Visit Hematology [place] [address] Markel Borjas MD [facility] [address] [place] [address] 03/01/2025 4:15 PM EDT Office Visit Dermatology at [place] [address] [place] [address] Marek Bonilla MD [address] [facility] [place] [address] documented as of this encounter Visit Diagnoses Diagnosis Rosacea Ocular rosacea Rosacea Nevus Benign neoplasm of skin, site unspecified documented in this encounter Care Teams Supervisor Felling Bucking Relationship Specialty Start Date End Date Magdalena Acosta MD [address] [place] [address] PCP - General Family Medicine 02/05/23 documented as of this encounter
--- OUTSIDE RECORDS SUMMARY | 2024-04-25 16:17 | XMS_ITS | Encounter Summary ---
Author Organization [facility] Address [facility] [place] [address] Care Team Providers Care Pulping Machine Operator Name Role Phone Magdalena Acosta MD Primary Care Provider [phone] Reason for Visit * Consultation (Routine) - Closed Specialty Diagnoses / Procedures Referred By Contac t Referred To Contact Rheumatology Diagnoses Weakness Kyra Haas MD [facility] [address] [place] [address] [facility] Rheumatology [address] [place] [phone] Referral ID Status Reason Start Date Expiration Date V isits Requested Visits Authorized [id number] Closed Consult, Test & Treat PCP Updated and/or Approved 02/25/2023 02/25/2024 6 6 Encounter Details Date Type Department Care Team (Late st Contact Info) Description 03/18/2023 1:00 PM EDT Office [place] [address] Kia Viramontes DO [facility] [place] [address] Magdalena Peralta MD [facility] [address] Positive FRANCISCO (antinuclear antibody) Social [...] 1:5120 speckled VIC negative Myositis panel with SHELLFISH PROCESSING LABORER ab 149.1 (positive) Anti U1RNP IgG 119 [...] a chair without assistance of upper extremities. Corncob Pipe Manufacturing Supervisor strength 3+/5 bilaterally; otherwise large muscle [...] due to risk of retinal toxicity with termite exterminator Plaquenil use, which she already does. Recommendations: #mixed connective tissue disease Start hydroxychloroquine 200 mg qd Labs today: repeat FRANCISCO, dsDNA, complements, CBC, CMP, CK, ESR, CRP Follow up 1 month The patient was seen and discussed with Dr. Wander Peralta MD Rheumatology Fellow Pager: [phone] CC: Kyra Haas * Kia Viramontes DO [...] AM EDT Appointment Hematology [place] [address] 05/12/2024 10:00 AM EDT Office Visit Hematology [place] [address] Markel Borjas MD [facility] [address] [place] [address] 03/01/2025 4:15 PM EDT Office Visit Dermatology at [place] [address] [place] [address] Marek Bonilla MD [address] [facility], [place] [address] documented as of this encounter Results * Comprehensive metabolic panel (non-fasting) (03/18/2023 2:14 PM EDT) [facility] Signature Glucose 93 65 - 199 mg/dL [facility] Comment:Diabetes: >=200 mg/d L plus symptoms Blood Urea Nitrogen 18 8 - 18 mg/dL [facility] Creatinine 0.99 0.70 - 1.20 mg/dL [facility] Sodium 141 135 - 145 mmol/L [facility] Potassium 4.5 3.5 - 5.0 mmol/L [facility] Comment: Please note: ??Patients with WBC >100,000 may have falsely elevated Potassium levels. ??For accurate Potassium quantification in these patients send serum separator tube (gold top) for subsequent determinations. ??Contact the Clinical Chemistry Laboratory if there are any questions. Chloride 106 98 - 107 mmol/L [facility] Carbon Dioxide 24 22 - 31 mmol/L [facility] Anion Gap 11 5 - 15 mmol/L [facility] Calcium 10.0 8.5 - 10.5 mg/dL [facility] Protein, Total 7.3 6.1 - 8.0 g/dL [facility] Albumin 4.3 3.2 - 5.2 g/dL [facility] Aspartate Aminotransferase 26 0 - 30 unit/L [facility] Alanine Aminotransferase 11 0 - 30 unit/L [facility] Alkaline Phosphatase 91 35 - 105 unit/L [facility] Bilirubin, Total 0.4 0.2 - 1.3 mg/dL [facility] Est Glomerular Filtration Rate 62 >=60 mL/min/1. 73 m?? [facility] Comment: This patient's estimated [...] DO CHEMISTRY ORDERABL ES Performing Organization Address City/State/[facility] Co de Phone Number [facility] [place] [address] * (ABNORMAL) FRANCISCO Ab by IFA (03/18/2023 2:14 PM EDT) FRANCISCO Ab Screen Test ? Result ?Flag ??Unit ??RefValue Antinuclear Ab, HEp-2 ?Positive 1:2560 ??@ ?<1:80 (Negative) ??Substrate, S ? ADDITIONAL INFORMATION --------- ?Method: Immunofluorescence using HEp-2 cellular substrate. ??FRANCISCO Titer: ? 1:2560 ??FRANCISCO Pattern: ? Speckled ?Test Performed by: ?[facility] ?[address] [id number] ?Customer Operations Representative: Raymond Chaudhry M.D. Ph.D.; CLIA# [id number] ([id number]) [facility] Blood 03/18/2023 2:14 PM EDT 03/18/2023 3:02 PM EDT Narrative Resulting Agency Comment Spec In Lab Kia Viramontes DO CHEMISTRY ORDERABL ES [facility] [place] [address] * DNA Antibody (Double-Stranded) (03/18/2023 2:14 PM EDT) dsDNA Ab <0.6 <=15.0 IU/mL [facility] Comment: <10 negative 10-15 equivocal >15 positive This dsDNA antibody result was generated using a fluoroenzyme immunoassay on the Thrive Solo 250 analyzer. This quantitative test is designed to detect IgG antibodies directed against double stranded DNA in human serum. The presence of antibodies that recognize dsDNA is a highly specific marker for systemic lupus erythematosus. Please note that as of 05/26/2022 that this testing is performed by the Special Chemistry Laboratory at [facility]. This change in testing location is associated with a change is testing method and reference intervals. Please review the results of this test in association with the posted reference intervals. Blood 03/18/2023 2:14 PM EDT 03/19/2023 7:19 AM EDT Narrative Resulting Agency Comment Spec In Lab Kia Viramontes DO LAB SEND OUT ORDER JODIE Performing Organization Address [facility] Co de Phone Number [facility] [place] [address] * CK (03/18/2023 2:14 PM EDT) Creatine Kinase 38 0 - 160 unit/L [facility] Blood 03/18/2023 2:14 PM EDT 03/18/2023 2:24 PM EDT Narrative Resulting Agency Comment Spec In Lab Kia Viramontes DO CHEMISTRY ORDERABL ES Performing Organization Address [facility] Co de Phone Number [facility] [place] [address] * C4 Complement (03/18/2023 2:14 PM EDT) Complement C4 30 10 - 40 mg/dL [facility] Blood 03/18/2023 2:14 PM EDT 03/18/2023 2:24 PM EDT Narrative Resulting Agency Comment Spec In Lab Kia D Wander DO CHEMISTRY ORDERABL ES Performing Organization Address [facility] Co de Phone Number [facility] [place] [address] * C3 Complement (03/18/2023 2:14 PM EDT) Complement C3 142 90 - 180 mg/dL [facility] Blood 03/18/2023 2:14 PM EDT 03/18/2023 2:24 PM EDT Narrative Resulting Agency Comment Spec In Lab Kia Viramontes DO CHEMISTRY ORDERABL ES Performing Organization Address [facility] Co de Phone Number [facility] [place] [address] * CRP, acute inflammation (03/18/2023 2:14 PM EDT) C-Reactive Protein 3.0 <=4.9 mg/L [facility] Blood 03/18/2023 2:14 PM EDT 03/18/2023 2:24 PM EDT Narrative Resulting Agency Comment Spec In Lab Kia Viramontes DO CHEMISTRY ORDERABL ES Performing Organization Address [facility] Co de Phone Number [facility] [place] [address] * (ABNORMAL) Sedimentation rate (03/18/2023 2:14 PM EDT) Sedimentation Rate Automated 68(H) 2 - 39 mm/hr [facility] Comment: Effective July 12, 2019 new capillary photometric technology has resulted in a change in reference ranges. It is recommended that each ESR result be reviewed with its own age appropriate reference range. Blood 03/18/2023 2:14 PM EDT 03/18/2023 2:24 PM EDT Narrative Resulting Agency Comment Spec In Lab Kia Viramontes DO HEMATOLOGY ORDERAB LES Performing Organization Address [facility] Co de Phone Number [facility] [place] [address] documented in this encounter Visit Diagnoses Diagnosis Positive FRANCISCO (antinuclear antibody) Other and unspecified nonspecific immunological findings documented in this encounter Care Teams Pulping Machine Operator Relationship Specialty Start Date End Date Magdalena Acosta MD [address] [place] [address] PCP - General Family Medicine 02/05/23 documented as of this encounter
--- OUTSIDE RECORDS SUMMARY | 2024-04-25 16:17 | XMS_ITS | Encounter Summary ---
Author Organization [facility] Address [facility] [place] [address] Care Team Providers Care Research Dairy Farm Supervisor Name Role Phone Deborah Quiroga ANURAG Primary Care Provider [phone] Encounter Details Date Type Department Care Team (Late st Contact Info) Description 01/14/2023 Refill Dermatology at [address] [address] Lupe Connor RN Social [...] She would like the medication called into [facility] in [facility]. Discussed with Dr. Bonilla and he has approved refill of the Doxycycline 50 mg take one capsule by mouth daily in the evenings dispense 30 capsules with 2 refills. Patient notified. documented in this encounter Plan of Treatment Upcoming Encounters Date Type Department Care Team (Late st Contact Info) Description 05/12/2024 9:00 AM EDT Appointment Hematology [place] [address] 05/12/2024 10:00 AM EDT Office Visit Hematology [place] [address] Markel Borjas MD [facility] [address] HEMATOLOGY [place] [address] 03/01/2025 4:15 PM EDT Office Visit Dermatology at [place] [address] [facility] [address] [place] [address] Marek Bonilla MD [address] [address], [address] [place] [address] documented as of this encounter Visit Diagnoses Not on filedocumented in this encounter Care Teams Research Dairy Farm Supervisor Relationship Specialty Start Date End Date Deborah Quiroga APRN PCP - General Family Medicine 03/24/16 02/04/23 documented as of this encounter
--- OUTSIDE RECORDS SUMMARY | 2024-04-25 16:17 | XMS_ITS | Encounter Summary ---
Author Organization [facility] [place] [address] Care Team Providers Care Dough Braker Name Role Phone Deborah Quiroga APRN Primary Care Provider [phone] Encounter Details Date Type Department Care Team (Latest Contact Info) Description 07/03/2022 12:28 PM EST - 07/03/2022 1:35 PM EST Hospital Encounter [place]ematology [place] [address] Chronic idiopathic neutropenia Discharge Disposition: Home Social [...] AM EDT Appointment Hematology [place] [address] 05/12/2024 10:00 AM EDT Office Visit [place] [address] Markel Borjas MD [facility] [address] HEMATOLOGY [place] [address] 03/01/2025 4:15 PM EDT Office Visit Dermatology at [place] [address] [facility] [place] [address] Marek Bonilla MD [address] [facility] [address], [place] [address] documented as of this encounter Procedures Procedure [...] 12:40 PM EST) Neutrophil % 72.9 % [facility] Neutrophil Absolute 2.61 1.70 - 6.10 x10(3)/mc L [facility] Lymph % 18.4 % [facility] Lymphocytes Abs 0.7(L) 0.9 - 3.2 x10(3)/mc L [facility] Monocyte % 8.4 % [facility] Monocyte Abs 0.3 0.3 - 0.9 x10(3)/mc L [facility] Eos % 0.0 % [facility] Eosinophils Abs 0.0 0.0 - 0.4 x10(3)/mc L [facility] Basophil % 0.3 % [facility] Baso Absolute 0.0 0.0 - 0.1 x10(3)/mc L [facility] Immature Gran % 0.00 % [facility] Comment: Immature granulocytes(IG's)percentage and absolute count will include metamyelocytes, myelocytes, and promyelocytes. Blood smears from CBCs yielding IG's will be scanned manually for concordance. If this scan disagrees with the automated IG or if promyelocytes are noted, a manual differential will be performed. Immature Gran Absolute 0.00 0.00 - 0.04 x10(3)/mc L [facility] Blood 07/03/2022 12:4 0 PM EST 07/03/2022 1:03 PM EST Narrative Resulting Agency Comment Spec In Lab Markel Borjas MD HEMATOLOGY ORDERAB LES [facility] [place] [address] * (ABNORMAL) Hemogram (07/03/2022 12:40 PM EST) White Blood Cell 3.6(L) 4.0 - 9.5 x10(3)/ L [facility] Red Blood Cell 3.61(L) 4.00 - 5.21 x10(6)/mc L [facility] Hemoglobin 11.7 11.7 - 15.5 g/dL [facility] Hematocrit 34.5(L) 35.7 - 45.8 % [facility] Mean Cell Volume 95.6(H) 82.6 - 94.4 fL [facility] Mean Cell Hemoglobin 32.4(H) 27.1 - 32.0 pg [facility] Mean Cell Hemoglobin Concentration 33.9 31.7 - 35.0 g/dL [facility] Platelet 171 145 - 357 x10(3)/mc L [facility] RDW Standard Deviation 40.5 37.0 - 46.0 fL [facility] RDW coefficient of variation 11.5 11.5 - 14.1 % [facility] Mean Platelet Volume 9.2 7.6 - 12.9 fL [facility] NRBC% auto 0.0 % [facility] NRBC Absolute 0.000 0.000 - 0.000 x10(3)/ L [facility] Blood 07/03/2022 12:4 0 PM EST 07/03/2022 1:03 PM EST Narrative Resulting Agency Comment Spec In Lab Markel Borjas MD HEMATOLOGY ORDERAB LES [facility] [place] [address] * (ABNORMAL) Comprehensive metabolic panel (non-fasting) (07/03/2022 [...] ORDERABL ES [facility] [place] [address] documented in this encounter Visit Diagnoses Diagnosis Chronic idiopathic neutropenia Other neutropenia documented in this encounter Care Teams Dough Braker Relationship Specialty Start Date End Date Deborah Quiroga APRN PCP - General Family Medicine 03/24/16 02/04/23 documented as of this encounter
--- OUTSIDE RECORDS SUMMARY | 2024-04-25 16:17 | XMS_ITS | Encounter Summary ---
Author Organization [facility] [place] [address] Care Team Providers Care City Secretary Name Role Phone Deborah Quiroga APRN Primary Care Provider [phone] Reason for Referral * Consultation (Routine) - Closed Specialty Diagnoses / Procedures Referred By Crispin maxwell Referred To Contact Neurology Diagnoses Polyneuropathy Deborah Quiroga APRN [address] [facility] [address] [place] [address] [facility] [address] [place] [address] Referral ID Status Reason Start Date Expiration Date V isits Requested Visits Authorized [id number] Closed Consult, Test & Treat 10/29/2022 10/29/2023 1 1 Encounter Details Date Type Department Care Team (Latest Contact Info) Description 10/29/2022 Transcribe Orders eDH Incoming Referrals [phone] Deborah Quiroga APRN [address] [facility] [address] [place] [address] Polyneuropathy (Primary Dx) Social History [...] AM EDT Appointment Hematology [place] [address] 05/12/2024 10:00 AM EDT Office Visit Hematology [place] [address] Markel Borjas MD [facility] [address] [place] [address] 03/01/2025 4:15 PM EDT Office Visit Dermatology at [place] [address] [place] [address] Marek Bonilla MD [address] [place] [address] Scheduled Referrals Name Type Priority Associated Diagnoses Orde r Schedule Referral to Neurology Outpatient Referral Routine Polyneuropathy Ordered: 10/29/2022 documented as of this encounter Visit Diagnoses Diagnosis Polyneuropathy- Primary Unspecified hereditary and idiopathic peripheral neuropathy documented in this encounter Care Teams City Secretary Relationship Specialty Start Date End Date Deborah Quiroga APRN PCP - General Family Medicine 03/24/16 02/04/23 documented as of this encounter
--- OUTSIDE RECORDS SUMMARY | 2024-04-25 16:17 | XMS_ITS | Encounter Summary ---
Author Organization [facility] [place] [address] Care Team Providers Care Fire Sprinkler Apparatus Inspector Name Role Phone Magdalena Acosta MD Primary Care Provider [phone] Encounter Details Date Type Department Care Team [...] AM EDT Appointment Hematology [place] [address] 05/12/2024 10:00 AM EDT Office Visit [place]ematology [place] [address] Markel Borjas MD [facility] [place] [address] 03/01/2025 4:15 PM EDT Office Visit Dermatology at [place] [address] [facility] [address] [place] [address] Marek Bonilla MD [address] [facility] [place] [address] documented as of this encounter Visit Diagnoses Not on filedocumented in this encounter Care Teams Fire Sprinkler Apparatus Inspector Relationship Specialty Start Date End Date Magdalena Acosta MD [address] [place] [address] PCP - General Family Medicine 02/05/23 documented as of this encounter
--- OUTSIDE RECORDS SUMMARY | 2024-04-25 16:17 | XMS_ITS | Encounter Summary ---
Author Organization [facility] [place] [address] Care Team Providers Care Cyber Systems Operations Specialist Name Role Phone Magdalena Acosta MD Primary Care Provider [phone] Encounter Details Date Type Department Care Team [...] AM EDT Appointment Hematology [place] [address] 05/12/2024 10:00 AM EDT Office Visit Hematology [place] [address] Markel Borjas MD [facility] [address] HEMATOLOGY [place] [address] 03/01/2025 4:15 PM EDT Office Visit Dermatology at [place] [address] [facility] [place] [address] Marek Bonilla MD [address] [facility] [place] [address] documented as of this encounter Visit Diagnoses Not on filedocumented in this encounter Care Teams Cyber Systems Operations Specialist Relationship Specialty Start Date End Date Magdalena Acosta MD [address] [place] [address] PCP - General Family Medicine 02/05/23 documented as of this encounter
--- OUTSIDE RECORDS SUMMARY | 2024-04-25 16:17 | XMS_ITS | Encounter Summary ---
Author Organization [facility] [place] [address] Care Team Providers Care Garden Labourer Name Role Phone Magdalena Acosta MD Primary Care Provider [phone] Encounter Details Date Type Department Care Team (Late st Contact Info) Description 02/17/2023 2:00 PM EDT Office [place] [address] Alirio Esparza MD Aortic valve stenosis, etiology [...] AM EDT Appointment Hematology [place] [address] 05/12/2024 10:00 AM EDT Office Visit Hematology [place] [address] Markel Borjas MD [facility] [address] HEMATOLOGY [place] [address] 03/01/2025 4:15 PM EDT Office Visit Dermatology at [place] [address] [place] [address] Marek Bonilla MD [address] [facility] [place] [address] documented as of this encounter Visit Diagnoses Diagnosis Aortic valve stenosis, etiology of cardiac valve disease unspecified documented in this encounter Care Teams Garden Labourer Relationship Specialty Start Date End Date Magdalena Acosta MD [address] [place] [address] PCP - General Family Medicine 02/05/23 documented as of this encounter
--- OUTSIDE RECORDS SUMMARY | 2024-04-25 16:17 | XMS_ITS | Encounter Summary ---
Author Organization [facility] [place] [address] Care Team Providers Care Quality Control Associate Name Role Phone Magdalena Acosta MD Primary Care Provider [phone] Encounter Details Date Type Department Care Team (Late st Contact Info) Description 05/08/2023 [place]phone [place] [phone] Luis Felipe Ott MD [facility] [place] [address] Social History Tobacco Use Types Packs/Day Years [...] 0426 Referring Provider: Nitesh Baltazar Patient Location: [facility] Presenting Symptoms per OSH: [...] Hgb 10.5 CMP - Cr 1.1 BNP 58630 HsTrop 1358 Lactate 1.6 D-dimer 1183, CTPE pending CXR demonstrated pulmonary vascular congestion US showed bilateral b lines Bedside echo reportedly similar to prior TTE for LV function OSH Interventions: ASA 324 Heparin gtt Plan: Transfer to [facility] Above recommendations/plans are based on my conversation with the referring provider. I have not personally interviewed or examined this patient. Luis Felipe Ott MD [employer] Received a call from provider emergently at 715am. Mentating well and BP 87/53. HR 108 and diursingwell. They were about to start phenylephrine which I stressed was not a good option given concern for severe and increasing afterload. She is warm on exam, mentating and urinating and we do not need to amrit a BP if those things remain stable. Nico Segura, PGY-6 [employer] [id number] documented in this encounter Plan of Treatment Upcoming Encounters Date Type Department Care Team (Late st Contact Info) Description 05/12/2024 9:00 AM EDT Appointment Hematology [place] [address] 05/12/2024 10:00 AM EDT Office Visit Hematology [place] [phone] Markel Borjas MD [facility] [address] HEMATOLOGY [place] [address] 03/01/2025 4:15 PM EDT Office Visit Dermatology at [place] [address] [place] [phone] Marek Bonilla MD [address] [place] [address] documented as of this encounter Visit Diagnoses Not on filedocumented in this encounter Care Teams Quality Control Associate Relationship Specialty Start Date End Date Magdalena Acosta MD [address] [place] [address] PCP - General Family Medicine 02/05/23 documented as of this encounter
--- OUTSIDE RECORDS SUMMARY | 2024-04-25 16:17 | XMS_ITS | Encounter Summary ---
Author Organization [facility] [place] [address] Care Team Providers Care Car Body Inspector Name Role Phone Magdalena Acosta MD Primary Care Provider [phone] Encounter Details Date Type Department Care Team [...] AM EDT Appointment Hematology [place] [address] 05/12/2024 10:00 AM EDT Office Visit [place]ology [place] [address] Markel Borjas MD [facility] [address] HEMATOLOGY [place] [address] 03/01/2025 4:15 PM EDT Office Visit Dermatology at [place] [address] [place] [phone] Marek Bonilla MD [address] [place] [address] documented as of this encounter Visit Diagnoses Not on filedocumented in this encounter Care Teams Car Body Inspector Relationship Specialty Start Date End Date Magdalena Acosta MD [address] [place] [address] PCP - General Family Medicine 02/05/23 documented as of this encounter
--- OUTSIDE RECORDS SUMMARY | 2024-04-25 16:17 | XMS_ITS | Encounter Summary ---
[place] [address] Care Team Providers Care Asphalt Worker Name Role Phone Magdalena Acosta MD Primary Care Provider [phone] Reason for Visit * Auth/Cert (Routine) Specialty Diagnoses / Procedures Referred By Contac t Referred To Contact Diagnoses Symptomatic severe aortic stenosis with low ejection fraction NSTEMI, CHF Enrique Chua MD [facility] [place] [address] [facility] Referral ID Status Reason Start Date Expiration Date Visits Re quested Visits Authorized [id number] 1 1 Encounter Details Date Type Department Care Team (Late st Contact Info) Description 05/12/2023 2:50 PM EDT - 05/12/2023 3:50 PM EDT [place] [address] Antelmo Sharma MD [facility] [place] [address] CARDIAC CATHETERIZATION Social History Tobacco Use Types [...] Patient Age: 67 y.o. Birthdate: 1955 Language: Mauritian Race: White Ethnicity: Not nor Admit Date: 05/08/2023 Discharge Date: 05/22/2023 Attending Physician: Alirio Hudson MD Follow-up Recommendations for Providers: Please continue routine management of cardiovascular risk factors including blood pressure, lipids,glucose, etc. Please note any medication changes. Patient to follow up with PCP, Magdalena Acosta MD, or Primary Cloth Examiner Machine, Avis Mejia MD, in ~ 7-10 days. Patient to follow up with Heat Treat Furnace Operator, Dr. Antelmo Sharma, in 2 weeks with an EKG, Echo, CBC, and CMP. Patient to follow up with Nephrology, their office to arrange. Uvcg-Hnjtmj-up interval: After initial 30 day follow-up appointment , all TAVR patients will follow-up again in one year with an echo. 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 Secondary Diagnoses: Active Hospital Problems Diagnosis S/P TAVR (transcatheter aortic valve replacement) Cardiogenic shock Symptomatic severe aortic stenosis with low ejection fraction Mild coronary artery disease by [facility] 11/09/2022 Heart failure with reduced ejection [...] Tube Placement Right 05/18/2023 Laure Ricks PA [facility] INTERVENTIONL RAD PRG CATH PLMT LEFT HEART CATH & ARTS W/INJ & ANGIO IMG S&I N/A 11/09/2022 CORONARY ANGIOGRAPHY; W [facility],POSSIBLE PCI (WRVU 5.6) performed by Mario Alberto Escobedo MD at [facility] CATH LABS PRG COMBINED RIGHT & LEFT HEART CATH W/INJ L VENTRICULOGRAPHY, IMG S&I N/A 05/12/2023 COMBINED RIGHT & LEFT HEART CATH,INC INJ FOR L VENTRICULOGRAPHY (WRVU 5.99) performed by Antelmo Sharma MD at [facility] CATH LABS PRO AORTOPLAS FOR SUPRAVALV STEN N/A 09/21/2016 @AORTOPLASTY FOR SUPRAVALVULAR STENOSIS (WRVU 29.33) performed by Alirio Hudson MD at [facility] MAIN OR PRO REPLACE AORTIC VALVE (TAVR/FEDERICO)PERC FEMORAL ARTERY APPROACH 05/12/2023 @TRANSCATHETER AORTIC VALVE REPLACEMENT (TAVR), PERCUTANEOUS FEMORAL (WRVU 22.47) performed by Alirio Hudson MD at [facility] CATH LABS PRO REPLACEMENT PROSTHETIC AORTIC VALVE OPEN W CARDIOPULMONARY BYPASS HOMOGRF/STENT N/A 09/21/2016 @REPLACE AORTIC VALVE, OPEN, W\CPB, W\PROSTHETIC VALVE (WRVU 41.32) performed by Alirio Hudson MD at [facility] MAIN OR Prior To Admission Medications [...] Major Procedures/Operations: 05/12/23: Successful right transfemoral TAVR Lyxxn-zx-Itmkn with a 23 mm Lai 3 THV. Left coronary protection with left main MINNA. Hospital Course: #Severe prosthetic s/p valve in valve TF TAVR #Low coronary heights s/p left main stent for coronary protection #Type 2 NSTEMI, present on arrival, resolved #Acute decompensated HFrEF #Cardiogenic shock #EVANS / Cardiorenal syndrome Purnima Thacker was admitted to [facility] on 05/08/2023 via the Cardiology [...] TAVR and she was brought to the botany laboratory assistant the following morning where Drs. [...] if you have questions. Please call your Heat Treat Furnace Operator's office if you have any discharge or drainage from your procedural sites. Your Heat Treat Furnace Operator, Dr. Antelmo Sharma and/or the General Passenger Agent may be reached at . Antibiotic prophylaxis: You will need to take antibiotics prior to many invasive tests and treatments, such as dental cleaning, which should be done every 6 months. Your primary care physician or your dentist can prescribe this medication. Please refer to the card with the [place] [employer] Guidelines for more information. You have been provided with a copy of this card. Please refer to the [place] [employer] Guidelines for more information. Good [...] friends, go to a movie, go to muslim, etc. Heavy activities: No hunting, skiing, jogging, [...] should resume a low fat, low cholesterol, [place] [employer] Diet Driving: No restrictions. Shower/Bath: You may shower daily. No baths, soaking, or swimming for the first week. Wound care: Wash the sites daily with soap and rinse well, pat dry. Assess for any signs of infection such as increased redness, pain, warmth or drainage. Please call your medicaid eligibility specialist's office if you have any discharge or drainage from your procedural sites. If there is a lot of swelling, apply mamta wraps during the day and remove at bedtime. Elevate your legs when you are sitting. Home oxygen therapy: N/A Follow up appointments: Please schedule a follow-up appointment with your PCP, Magdalena Acosta MD, or Primary Cloth Examiner Machine in ~ 7-10 days. You have a follow-up appointment with your Heat Treat Furnace Operator, Dr. Antelmo Sharma, in 2 weeks with an EKG, Echo, and labs prior to your appointment. You will need follow-up with Nephrology, their office will arrange. Ehhe-Zcuapi-dv interval: After initial 30 day follow-up appointment , all TAVR patients will follow-up again in one year with an echo. Cardiac Rehabilitation: Purnima Thacker was seen today regarding participation in the outpatient Phase 2 Cardiac Rehabilitation at [facility]. The patient agrees to a referral to this program. The referral will be sent at discharge and the patient should be contacted by the Program within 1- 2 weeks from discharge. Future Appointments and Orders Future Appointments and Orders Future Appointments Provider Department Dept Phone 07/29/2023 11:00 AM Magdalena Peralta MD Rheumatology at [facility] Arrive at: Decorating Instructor Area 5C [phone] 02/11/2024 2:00 PM Marek Bonilla MD Dermatology at [place] Arrive at: [facility] [address] [phone] Future Orders Complete By Expires Type and Screen Future Surgery, [facility] SAME DAY PROGRAM ONLY) [UPO2269 Custom] 05/11/2023 Process Instructions: This test is intended ONLY for patients with upcoming surgery for testing prior to the day of surgery obtained through the same day program (4V or SDP). For ALL OTHER PATIENTS, order a Type and Screen (XNY214) This order includes the physician order for an ABO Recheck if requested by the Blood Bank. Scheduling Instructions: Comments: Questions: Date of surgery: CBC (with Diff) [UEB659 Custom] 06/05/2023 12/05/2023 Process Instructions: INCLUDES: WBC, RBC, Hgb, Hct, Platelets, RBC Indices and Differential Scheduling Instructions: Comments: Questions: Comprehensive metabolic panel (non-fasting) [LAB17 Custom] 06/05/2023 08/20/2023 Process Instructions: INCLUDES: Calcium, T Protein, Albumin, AST, ALT, Alk Phos, T Bili, BUN, Creat, GFR, Glucose, Lytes. Scheduling Instructions: Comments: Questions: Echocardiogram Transthoracic [82622 CPT(R)] 06/05/2023 12/05/2023 Process Instructions: Scheduling Instructions: Questions: Where will study be performed?: [facility] Clinics Does the patient have Congenital Heart Disease?: Does patient require sedation?: GA rationale: EKG 12 Lead [73659 CPT(R)] 06/05/2023 12/05/2023 Process Instructions: Scheduling Instructions: Questions: Which location will this be performed?: [place] Is a rhythm strip needed?: No [facility] Devices [EQ161 Custom] As directed Process Instructions: Scheduling Instructions: Questions: Device Needed: WALKER (E0143) Patient Height (cm): 154.9 cm (5' 0.98) Patient Weight: 75.4 kg (166 lb 3.2 oz) Diagnosis: Unsteady gait when walking Referral to Cardiac Rehab [TTR385 Custom] As directed Process Instructions: If no progress note charted, please enter Clinical details in comments. Scheduling Instructions: Questions: My question or request is: s/p TAVR. Cardiac rehab at [facility]. Referral to Home Health [REF34 Custom] As directed Process Instructions: If no progress note charted, please enter Clinical details in comments. Scheduling Instructions: Comments: DOCUMENTATION FOR VNA SERVICES PATIENT'S LOCATION: Purnima Thacker [address] [place] [address] [phone] (home) Industrial Relations Analyst's Name: Irineo and brother Raymond In discussion with the attending physician, it is certified that this patient is under his/her careand that MD, or an INVOICING SPECIALIST, SECURITY OFFICERS AND GUARDS, or PA who is working directly with him/her, had a epxt-um-okcm encounter that meets the physician gsku-fg-jdjo encounter requirements with this patient on 05/22/2023. [...] for managing ADLs. HOME HEALTH CARE AGENCY: [facility]. [address] [facility] [address] PHONE: [phone] FAX: [phone] Start of care: Ideally 24-48 hours after [...] MD [address] / [facility] [phone] All VNA agencies which cover the area of patient's residence have been reviewed, either verbally joao writing, and patient has chosen the home health care agency noted. Questions: Disciplines Requested: Physical Therapy Occupational Therapy Discharge References/Attachments None Arrangements for VNA/home care: As above. (delete if no VNA) Signed: EKATERINA NAVARRETE [facility] Section of Cardiac Surgery Date: 05/22/2023 CC: Magdalena Acosta MD [place] Alberto maxwell MD [address] [place] [address] documented in this encounter Discharge Instructions * Patient Instructions* Vinod Juárez PA - 05/22/2023 9:32 AM EDT TAVR Discharge Instructions: Call your doctor if: You have a fever of greater than 101 degrees, shaking chills, if you develop redness or drainage from your procedure sites, or if you have questions. Please call your Heat Treat Furnace Operator's office if you have any discharge or drainage from your procedural sites. Your Heat Treat Furnace Operator, Dr. Antelmo Sharma and/or the General Passenger Agent may be reached at . Antibiotic prophylaxis: You will need to take antibiotics prior to many invasive tests and treatments, such as dental cleaning, which should be done every 6 months. Your primary care physician or your dentist can prescribe this medication. Please refer to the card with the [place] [employer] Guidelines for more information. You have been provided with a copy of this card. Please refer to the [place] [employer] Guidelines for more information. Good [...] friends, go to a movie, go to muslim, etc. Heavy activities: No hunting, skiing, jogging, [...] should resume a low fat, low cholesterol, [place] [employer] Diet Driving: No restrictions. Shower/Bath: You may shower daily. No baths, soaking, or swimming for the first week. Wound care: Wash the sites daily with soap and rinse well, pat dry. Assess for any signs of infection such as increased redness, pain, warmth or drainage. Please call your medicaid eligibility specialist's office if you have any discharge or drainage from your procedural sites. If there is a lot of swelling, apply mamta wraps during the day and remove at bedtime. Elevate your legs when you are sitting. Home oxygen therapy: N/A Follow up appointments: Please schedule a follow-up appointment with your PCP, Magdalena Acosta MD, or Primary Cloth Examiner Machine in ~ 7-10 days. You have a follow-up appointment with your Heat Treat Furnace Operator, Dr. Antelmo Sharma, in 2 weeks with an EKG, Echo, and labs prior to your appointment. You will need follow-up with Nephrology, their office will arrange. Qcqt-Igpyxs-ln interval: After initial 30 day follow-up appointment , all TAVR patients will follow-up again in one year with an echo. Cardiac Rehabilitation: Purnima Gallegol was seen today regarding participation in the outpatient Phase 2 Cardiac Rehabilitation at [facility]. The patient agrees to a referral [...] ins ( tef) Haven Ba, PT Pager: [phone] Physical Therapy Inpatient Rehabilitation Department * Nico [...] 0600 and on the weekends please page [phone]. * Jory Paniagua - 05/20/2023 3:52 PM [...] Last Bowel Movement: 05/20/23 Jory Paniagua Senior Military Analyst * Tong Mike, OT - 05/20/2023 3:16 [...] Tube Placement Right 05/18/2023 Laure Ricks PA [facility] INTERVENTIONL RAD PRG CATH PLMT LEFT HEART CATH & ARTS W/INJ & ANGIO IMG S&I N/A 11/09/2022 CORONARY ANGIOGRAPHY; W [facility],POSSIBLE PCI (WRVU 5.6) performed by Mario Alberto Escobedo MD at [facility] CATH LABS PRG COMBINED RIGHT & LEFT HEART CATH W/INJ L VENTRICULOGRAPHY, IMG S&I N/A 05/12/2023 COMBINED RIGHT & LEFT HEART CATH,INC INJ FOR L VENTRICULOGRAPHY (WRVU 5.99) performed by Antelmo Sharma MD at [facility] CATH LABS PRO AORTOPLAS FOR SUPRAVALV STEN N/A 09/21/2016 @AORTOPLASTY FOR SUPRAVALVULAR STENOSIS (WRVU 29.33) performed by Alirio Hudson MD at [facility] MAIN OR PRO REPLACE AORTIC VALVE (TAVR/FEDERICO)PERC FEMORAL ARTERY APPROACH 05/12/2023 @TRANSCATHETER AORTIC VALVE REPLACEMENT (TAVR), PERCUTANEOUS FEMORAL (WRVU 22.47) performed by Alirio Hudson MD at [facility] CATH LABS PRO REPLACEMENT PROSTHETIC AORTIC VALVE OPEN W CARDIOPULMONARY BYPASS HOMOGRF/STENT N/A 09/21/2016 @REPLACE AORTIC VALVE, OPEN, W\CPB, W\PROSTHETIC VALVE (WRVU 41.32) performed by Alirio Hudson MD at [facility] MAIN OR Social History: Patient lives alone. Home Setup: Pt lives on one level with tub shower and three steps to enter. DME: none used DRUM OPERATOR Baseline ADL/Mobility: Independent with ADLs and [...] WFL Vision & Perception: corrective lenses multimedia coordinator Communication: WFL Range of motion, strength, coordination: [...] Discharge planning. Total Minutes, Occupational Therapy: 28 (3147-4505) OT Evaluation Code Rationale: Diagnosis & Pertinent Co-Morbidities affecting Plan of Care: see PMHx Occupational Profile & Client History: Brief Expanded Extensive x Assessment of Occupational Performance: 1-3 performance deficits 3-5 performance deficits x 5 + performance deficits Clinical Decision Making: Low Moderate High x Clinical decision making of moderate complexity using standardized patient assessment instrument and measurable assessment of functional outcome. Pager: [phone] TONG MIKE OT 05/20/2023 Occupational Therapy Rehabilitation [...] 0600 and on the weekends please page [phone]. * Rylie Rodriguez MD - 05/19/2023 3:59 [...] and plan. Cynthia Blackburn MD Nephrology Pager: [phone] * Diana Espino - 05/19/2023 1:49 PM EDT Pattern And Chain Maker Encounter Note Patient Name: Purnima Thacker : [id number] MR#: [id number] Admit Date: 05/08/2023 9:14 AM Hospital Day [...] as stated. Total Minutes, Physical Therapy: 38 (0362-6721) Henrik Navarrete PTA Pager: [phone] Physical Therapy Inpatient Rehabilitation Department * Nico [...] 0600 and on the weekends please page [phone]. * Laure Ricks PA - 05/19/2023 7:56 [...] Ricks PA-C Interventional Radiology IR Team Pager [phone] * Consuelo Espinoza RN - 05/18/2023 4:13 PM EDT ANGIO NURSING DATABASE Name: Purnima Thacker Date of : 1955 AGE: 67 y.o. Address: [address] [place] [address] (home) Mobile: No relevant phone numbers on [...] Mild coronary artery disease by [facility] 11/09/2022 I25.10 Heart failure with reduced [...] and plan. Cynthia Blackburn MD Nephrology Pager: [phone] * Magdalena Puri, HEAD TENNIS PROFESSIONAL - 05/18/2023 10:51 AM EDT Images from the original note were not included. Formerly [facility] [place] [address] [address] STRUCTURAL HEART DISEASE CONSULTATION NOTE PRIMARY CARE [...] stenosis. She is now status post TAVR Mqnty-qo-Eblpl with a 23 mm Lai 3 THV 05/12/[address] Sharma. Preliminary findings: Successful right transfemoral TAVR Swlbs-rc-Upvit with a 23 mm Lai 3 THV. [...] Mild coronary artery disease by [facility] 11/09/2022 Heart failure with reduced ejection [...] tablet 40 mg 40 mg Oral Daily CerescoMara ernandez APRN 40 mg at 05/18/23 0826 Or pantoprazole (Protonix) injection 40 mg 40 mg Intravenous Daily CerescoMara ernandez APRN 40 mg at 05/12/23 1004 [...] mL 0.5 mL Intramuscular Prior to discharge CerescoMara ernandez APRN FAMILY HISTORY: No family history [...] stenosis. She is now status post TAVR Fkidu-zt-Ivzrr with a 23 mm Lai 3 THV [...] Magdalena Puri APRN Structural Heart Team Pager [phone] Team Office Please see addendum by Dr. Sharma for final plan and recommendations Associated attestation - Antelmo Sharma MD - 05/19/2023 10:52 PM EDT I have reviewed Magdalena Puri APRN's above history and I agree with the details as written. The assessment and plan were formulated in discussion with me and I agree with them as documented. Antelmo Sharma MD Pager [phone] * Nico Palacios PA - 05/18/2023 8:13 [...] 0600 and on the weekends please page [phone]. * Loli Hernandez, PT - 05/17/2023 5:27 [...] Sci Med Sci 55(4): M221-31. Nerissa S, Lucinad D, Enedelia P, Sim R, Asad P, [...] plan as stated. Time IN / OUT: 9185-5988 Total Minutes, Physical Therapy: 54 Billing Code: te-sx2, te-f, angely HERNANDEZ PT Pager: [phone] Physical Therapy Inpatient Rehabilitation Department * Cynthia [...] Well controlled. Cynthia Blackburn MD Nephrology Pager: [phone] * Mara Serrano, HEAD TENNIS PROFESSIONAL - 05/17/2023 8:26 AM EDT Cardiac Surgery [...] 0600 and on the weekends please page [phone]. * Guerda Del Valle C - 05/16/2023 10:44 AM EDT Nutrition Services Note - Low Nutrition Acuity Purnima Thacker is a 67 y.o. female Reason for intervention: hospital day 9 Nutrition Plan: Continue diet order Encourage good PO Lasix and Zofran noted Added special serve: open containers Monitor weight Patient scheduled for a hospital day 9 nutrition evaluation. Customer Success Advocate met with pt at bedside. Pt reports that her appetite and PO has much improved since admission. Denies nausea/vomiting or trouble chewing/swallowing. Customer Success Advocate provided snack list but pt not interested in adding snacks at this time. Her only concern was that she is worried that she will eat too much which will cause too much pressure in her stomach. Customer Success Advocate assured pt and suggested eating smaller but [...] Bowel Movement: 05/10/23 Guerda Del Valle Senior Military Analyst * Vinod Juárez PA - 05/16/2023 10:19 [...] Hold home Meloxicam, Plaquenil Oxy prn #Oliguric EAVNS - improving Secondary to cardiogenic shock and [...] 0600 and on the weekends please page [phone]. * Michael Jeffers MD - 05/16/2023 8:11 AM EDT Images from the original note were not included. Hypertension-Nephrology Inpatient Follow-up Purnima Thacker [id number] 1955 ID: 67 y.o. old female seen [...] IRONSAT 12 (L) 05/16/2023 SFOLATE >20.0 07/03/2022 [id number] 07/03/2022 Lab Results Component Value Date [...] Dr. Ayoub. Please contact me at phone: [phone] or pager: [phone] with any questions. Michael Jeffers MD Nephrology [...] -Nephrology consulted, labs and renal US ordered -Perry removed, ambulated around the unit -bilateral pleural [...] 0600 and on the weekends please page [phone]. * Hortencia Cody MD - 05/15/2023 2:07 [...] not included. Hypertension-Nephrology Inpatient Follow-up Purnima Thacker [id number] 1955 ID: 67 y.o. old female seen [...] HGB 7.8 (L) 05/13/2023 SFOLATE >20.0 07/03/2022 [id number] 07/03/2022 Lab Results Component Value Date [...] Dr. Ayoub. Please contact me at phone: [phone] or pager: [phone] with any questions. Michael Jeffers MD Nephrology [...] outlined inthis evaluation. HAVEN BA, PT Pager: [phone] Physical Therapy Inpatient Rehabilitation Department Time IN / OUT: 4334-6281 Total time: Total Minutes, Physical Therapy: 30 [...] 0600 and on the weekends please page [phone]. * Antelmo Sharma MD - 05/14/2023 7:56 AM EDT Images from the original note were not included. Formerly [facility] [place] [address] STRUCTURAL HEART DISEASE CONSULTATION NOTE PRIMARY CARE [...] stenosis. She is now status post TAVR Hhaax-aj-Haypi with a 23 mm Lai 3 THV 05/12/[address] Sharma. Preliminary findings: Successful right transfemoral TAVR Xagyq-kl-Ruxab with a 23 mm Lai 3 THV. [...] perforation. Interval Events: - 05/12 Transferred to [facility] post- TAVR for pressor/inotropic support (Levo, [...] Mild coronary artery disease by [facility] 11/09/2022 Heart failure with reduced ejection [...] stenosis. She is now status post TAVR Vwtzx-xy-Vsuwt with a 23 mm Lai 3 THV 05/12/[address] Sharma. Janet TAVR case notable for coronary LAD protective MINNA. Status post TAVR, the patient was transferred to [facility] for pressor and inotropic support. Pressors [...] Brody Kaplan APRN Structural Heart Team Pager [phone] Team Office Please see addendum by Dr. [...] exposure. Nephrology consultationtoday. Antelmo Sharma MD Pager [phone] * Antelmo Cardenas RN - 05/14/2023 5:18 AM EDT Pt AOx4, complaining of mild/moderate generalized pain (states her Meloxicam is effective at home) currently refusing prn oxycodone. NAEON, hemodynamically stable on Milrinone, Maps >65, ST in [id number]'s down to NSR with frequent multifocal PVC's. Remains on 2L Nasal cannula with congested but largely unproductive cough. Remains grossly oliguric, creatinine bumped to 4.8 from 3.15 on midnight labs, with electrolytes remaining stable. Last BM 05/10, took evening pericolace, some abdominal tenderness alleviated with passing flatus. Ambulating well with nurse assist to bed and chair with minimal symptoms. * Anetlmo Sharma MD - 05/13/2023 12:09 PM EDT Images from the original note were not included. Formerly [facility] [place] [address] [address] STRUCTURAL HEART DISEASE PROGRESS NOTE PRIMARY CARE PROVIDER: Magdalena Acosta MD REFERRING PROVIDER: Mario Alberto Chin REASON FOR CONSULTATION: Bioprosthetic aortic valve stenosis HISTORY OF PRESENT ILLNESS: Patient ID: Purnima Thacker is a 67 y.o. female with a past medical history significant for historyof SAVR 09/2016 (bovine pericardial 25 mm), HFrEF, HTN, DLP, NCIOLAS, mixed connective tissues disease, and other chronic medical comorbidities, who has been admitted to the cardiovascular service with acute on chronic decompensated systolic heart failure in the context of bioprosthetic aortic valve stenosis. She is now status post TAVR Qadwg-jd-Eabha with a 23 mm Lai 3 THV 05/12/[address] Sharma. Preliminary findings: Successful right transfemoral TAVR Notyk-lo-Uhgza with a 23 mm Lai 3 THV. [...] Mild coronary artery disease by [facility] 11/09/2022 Heart failure with reduced ejection [...] stenosis. She is now status post TAVR Kykhg-ij-Njqoh with a 23 mm Lai 3 THV 05/12/[address] Sharma. Janet TAVR case notable for coronary LAD protective MINNA. Status post TAVR, the patient was transferred to [facility] for pressor and inotropic support. Pressors [...] Brody Kaplan APRN Structural Heart Team Pager [phone] Team Office Please see addendum by Dr. [...] DAPT moving forward. Antelmo Sharma MD Pager [phone] * Bonita Miguel PA - 05/13/2023 8:30 AM EDT Cardiac Surgery Progress Note Purnima Thacker is a 67 y.o. 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 PMH of s/p tissue AVR (2017), mixed connective tissue disease HTN, HLD, NICOLAS, diverticulosis, rosacea, essential tremor, and depression. 24h Events: From botany laboratory assistant for above procedure Extubated at [...] soft b/l, no evidence of hematoma. Tubes/Lines/Drains: Perry, RIJ, A-line, Art, PIV Assessment/Plan: 67 y.o. [...] 0600 and on the weekends please page [phone]. * Onelia Schwartz MD - 05/12/2023 1:44 [...] Mild coronary artery disease by [facility] 11/09/2022 Heart failure with reduced ejection [...] FiO2 weaned to 40%. 1105: ABG 7.34/42/73/22 8124-2629: SBT performed and passed on these settings [...] Home CPAP at bedside as needed. RT aPrth * Radha Hollins MD - 05/12/2023 7:45 AM EDT Images from the original note were not included. Cardiology ICU Progress Note Patient info: Name: Purnima Thacker : 1955 PCP: Magdalena Acosta MD PCP phone number: [phone] Date of Admission: 05/08/2023 ( Hospital Day [...] 1447 PHART -- 7.34* 7.34* -- -- FYI6NTO -- 30* 30* -- -- PO2ART -- 72* 81* -- -- RPE9MPQ -- 16.0* 15.7* -- -- LACTATEVEN 2.4* 2.7* 2.7* 4.8* 2.9* VBG (Venous Blood Gas) Recent Labs 05/12/23 0700 05/12/238 05/12/2310505/11/23193905/11/23 144 LACTATEVEN 2.4* 2.7* 2.7* 4.8* 2.9* Mixed Venous Sat Recent Labs 05/12/23 0508 05/12/23 0321 05/12/23 0114 05/12/23 0030 [id number] 30.7 32.7 37.3 25.1 Objective: Vitals Last [...] who have questions please contact the health acute care occupational therapist that requested your imaging first. Electronically signed by: ALIX RUVALCABA MD, [facility] ([phone]), at 05/10/2023 1:[address] Cardiac for [...] who have questions please contact the health acute care occupational therapist that requested your imaging first. Electronically signed by: Cullen Narayanan MD, [facility] ([phone]), at 05/11/2023 4:[address] Angiogram Abdomen [...] who have questions please contact the health acute care occupational therapist that requested your imaging first. Chest One [...] who have questions please contact the health acute care occupational therapist that requested your imaging first. Chest One [...] who have questions please contact the health acute care occupational therapist that requested your imaging first. Assessment & [...] and inotrope. She is planned for a pdbno-kj-oatif TAVR this morning, which should hopefully improve [...] Section of Cardiovascular Medicine [facility] Echocardiographereconomics lecturer [facility]ly [facility] [employer] [facility] * Noreen Deutsch RN - 05/12/2023 [...] Mild coronary artery disease by [facility] 11/09/2022 Heart failure with reduced ejection [...] 05/11/2023 4:11 PM EDT Reported off to CASHIER WRAPPER and pt transferred over in the bed for higher level of care. * Antelmo Sharma MD - 05/11/2023 9:45 AM EDT Images from the original note were not included. Formerly [facility] [place] [address] STRUCTURAL HEART DISEASE CONSULTATION NOTE PRIMARY CARE [...] who had been referred for possible TAVR teozy-wc-dkeda evaluation. Her primary symptoms are of dyspnea [...] [facility]. 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 She states [...] Mild coronary artery disease by [facility] 11/09/2022 Heart failure with reduced ejection [...] 40 mg 40 mg Oral Daily Harini aLnce MD 40 mg at 05/11/23 0834 heparin [...] Lactate, whole blood, send to lab ([facility]) Result Value Ref Range Lactate WB 3.1 (H) 0.5 - 2.2 mmol/L Heparin (unfractionated) Level Result Value Ref Range Heparin UFH Level 0.46 IU/mL Lactate, whole blood, send to lab ([facility]) Result Value Ref Range [...] leads Confirmed by MD Harshil, Enrique Bell ([id number]) on 05/10/2023 8:11:46 AM Cardiac Cath 11/09/2022 [...] alert Dr. Hudson of her inpatient status, [place] primary cardiac surgeon. Based on recent clinic visit, tentative plan had been for TAVR JANET issa ferrera given her chronological age. Cardiac cath 11/09/2022 notable for non-obstructive coronary disease. TAVR CTAs planned for today. Will review her case with cardiac surgery to determine best timing and therapies for her valve intervention. Addendum 05/11/2023 6:48 PM Due to decompensating HFrEF, she was transferred to [facility] this afternoon for further management. TAVR CT imaging support for adequate ileofemoral access. Given her acute deterioration today, will planfor RTF TAVR on 05/12/2023. Brody Kaplan APRN Structural Heart Disease Pager [phone] Please see addendum by Dr. Sharma for [...] signed and dated. Antelmo Sharma MD Pager [phone] * Harini Lance MD - 05/11/2023 6:06 AM EDT Images from the original note were not included. Cardiology Progress Note Patient info: Name: Purnima Thacker : 1955 PCP: Magdalena Acosta MD PCP phone number: [phone] Date of Admission: 05/08/2023 ( Hospital Day [...] who have questions please contact the health acute care occupational therapist that requested your imaging first. 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..] Diet: Daily Healthy Menu Choices/Cardiac diet ([facility]-Diet) Lines: Peripheral IV Line - Single Lumen [...] Mild coronary artery disease by [facility] 11/09/2022 Hyperlipidemia, unspecified NICOLAS (obstructive sleep [...] Mild coronary artery disease by [facility] 11/09/2022 I25.10 Heart failure with reduced ejection fraction due to heart valve disease I50.20, I38 Cardiogenic shock R57.0 S/P TAVR (transcatheter aortic valve replacement) Z95.2 Past Medical History: Diagnosis Date Anemia Past Surgical History: Procedure Laterality Date PRG CATH PLNM LEFT HEART CATH & ARTS W/INJ & ANGIO IMG S&I N/A 11/09/2022 CORONARY ANGIOGRAPHY; W [facility],POSSIBLE PCI (WRVU 5.6) performed by Mario Alberto Escobedo MD at [facility] CATH LABS PRO AORTOPLAS FOR SUPRAVALV STEN N/A 09/21/2016 @AORTOPLASTY FOR SUPRAVALVULAR STENOSIS (WRVU 29.33) performed by Alirio Hudson MD at [facility] MAIN OR PRO REPLACEMENT PROSTHETIC AORTIC VALVE OPEN W CARDIOPULMONARY BYPASS HOMOGRF/STENT N/A 09/21/2016 @REPLACE AORTIC VALVE, OPEN, W\CPB, W\PROSTHETIC VALVE (WRVU 41.32) performed by Alirio Hudson MD at [facility] MAIN OR Social History and Habits: [...] Mild coronary artery disease by [facility] 11/09/2022 I25.10 Heart failure with reduced ejection fraction due to heart valve disease I50.20, I38 Cardiogenic shock R57.0 S/P TAVR (transcatheter aortic valve replacement) Z95.2 Past Medical History: Diagnosis Date Anemia Past Surgical History: Procedure Laterality Date PRG CATH PLNM LEFT HEART CATH & ARTS W/INJ & ANGIO IMG S&I N/A 11/09/2022 CORONARY ANGIOGRAPHY; W [facility],POSSIBLE PCI (WRVU 5.6) performed by Mario Alberto Escobedo MD at [facility] CATH LABS PRO AORTOPLAS FOR SUPRAVALV STEN N/A 09/21/2016 @AORTOPLASTY FOR SUPRAVALVULAR STENOSIS (WRVU 29.33) performed by Alirio Hudson MD at [facility] MAIN OR PRO REPLACEMENT PROSTHETIC AORTIC VALVE OPEN W CARDIOPULMONARY BYPASS HOMOGRF/STENT N/A 09/21/2016 @REPLACE AORTIC VALVE, OPEN, W\CPB, W\PROSTHETIC VALVE (WRVU 41.32) performed by Alirio Hudson MD at [facility] MAIN OR Social History and Habits: [...] days, which prompted her to present to [facility]. She also endorses some intermittent retrosternal chest pain with exertion.She endorses some dizziness with exertion, but has not gotten faint or passed out. At [facility] she was noted to be afebrile, blood pressure 105/64, HR 120s, satting 95% on 2L NC. Labs from [facility] are below, of note she had [...] 89/59, which prompted the transfer to us. [facility] labs: CBC - Hgb 10.5 CMP - Cr 1.1 BNP 16723 HsTrop 1358 Lactate 1.6 D-dimer 1183 Interval History Patient was admitted to [facility] due to concern on low BP [...] Klaudia Reid MD Internal Medicine PGY-1 Pager [phone], M1-S1 Service Associated attestation - Juan Luis Gonzalez MD - 05/08/2023 10:00 PM EDT Cardiology Attending Addendum Active Hospital Problems Diagnosis Symptomatic severe aortic stenosis with low ejection fraction Heart failure with reduced ejection fraction due to heart valve disease Mild coronary artery disease by [facility] 11/09/2022 Hyperlipidemia, unspecified History of aortic [...] PCP: Magdalena Acosta MD PCP phone number: [phone] Date of Admission: 05/08/2023 ( Hospital Day 0 days ) Attending:Enrique Chua MD ID: Purnima Thacker is a 67 y.o. female w/ PMH of s/p bioprosthetic AVR in 2016 with recent concern for severe restenosis, HTN, HLD, mixed connective tissue disease, who presents in transfer from [facility] with worsening BONILLA and weight gain [...] four days, which promptedher to present to [facility]. She also endorses some intermittent retrosternal chest pain with exertion. She endorses some dizziness with exertion, but has not gotten faint or passed out. At [facility] she was noted to be afebrile, blood pressure 105/64, HR 120s, satting 95% on 2L NC. Labs from [facility] are below, of note she had [...] 89/59, which prompted the transfer to us. [facility] labs: CBC - Hgb 10.5 CMP - Cr 1.1 BNP 74731 HsTrop 1358 Lactate 1.6 D-dimer 1183 Vasoactive [...] tissue disease, who presents [facility] BONILLA and weight gain concerning [...] Diet: Daily Healthy Menu Choices/Cardiac diet ([facility]-Diet) DVT Prophylaxis: heparin gtt GI Prophylaxis: none [...] to the planned procedure. Hand Hygiene: The ham passer did perform hand hygiene prior to arterial [...] Successful arterial line placement. Crispin Timmons MD General Passenger Agent Associated attestation - Onelia Schwartz MD [...] (flow was non-pulsatile) and appearance of blood. Perry-Marily catheter was placed and locked at 55 [...] information for follow-up [facility], [place] [address] [place] [address] Cardiac Rehab, [place] [id number] [place] [address] Home [facility], [place] [address] [place] [address] Transportation: family or friend will provide *Brother [...] Type: *No Product type* / Secondary Insurance: [employer] [place] Prescription Coverage: Yes This plan was formulated with input from patient, family (please identify family/friend involved ifapplicable) and team. All are in agreement with plan. Aliza Martino MSN-Ed, RN ACM trip motor operator Office of Care Management Pager #[phone] * Plan of Care - Favian Mckeon [...] Lana Chaudhary RN - 05/21/2023 4:46 PM EDTSuml.[facility]: [place] [facility] referral OFFICE OF CARE MANAGEMENT [...] Type: *No Product type* / Secondary Insurance: Relevant e-solution [facility] [place] Last Physical Therapy Recommendation: [...] planning needs. describing our affiliations within the [facility] and educate about their right to choose where referrals are sent. provide a list of Home Health Agencies / Durable Medical Equipment vendors which serve their preferred geographic area. They have requested referrals to: [facility] [address] [place] [address] [facility] [place], [place] Note routed to a Design Engineering Specialist who will communicate referrals to facilities and provide any required information. Transportation: family or friend will provide *Brother Raymond on Tuesday 05/22 at 1000 Barriers to discharge: Does not have home 22/02 assist available until tomorrow Tuesday 05/22 Plan going forward: Discharge home into the 22/02 home care of brother Raymond with [facility] and [place] [facility] PT/OT services on Tuesday 05/22 [...] Attending: All Staff: Staff Role Juanita Almaguer Drier Operator Head Laure Ricks PA Physician Reservation Sales Agent Magdalena Rodriguez RN Radiology Nurse Consuelo Espinoza polysomnographic tech Nurse Post-operative diagnosis/Indication: Right pleural effusion Name [...] Type: *No Product type* / Secondary Insurance: [employer] [facility] [place] Last Physical Therapy Recommendation: correction facility, [...] discuss discharge planning needs. provide the [facility], Office of Care Management letter from the [facility] pertaining to rehab referrals. provide a letter describing our affiliations within the [facility] and educate about their right to choose where referrals are sent. provide the CMS Star Quality Rating handout. review the different levels of rehab including SNF, swing, and acute. provide a list of facilities within their preferred geographic area. request that they provide at least three choices for referral. They have requested referrals to: [facility] [address] [place] [address] [facility] ([facility]) [address] [place] [address] (Accepts pts only after exhausting all other local SNF options) [facility] (Swing) ([facility]) [address] [place] [address] PHONE: [phone] FAX: [phone] [facility] ([facility]) [facility]) [address] [place] [address] PHONE: [phone] FAX: [phone] Note routed to a Design Engineering Specialist who will communicate referrals to facilities and [...] RN - 05/17/2023 10:25 AM EDT [facility] CARDIAC REHABILITATION Purnima Thacker was seen today regarding participation in the outpatient Phase 2 Cardiac Rehabilitation at [facility]. The patient agrees to a referral [...] from the original note were not included. [facility] NEPHROLOGY/HYPERTENSION CONSULT NOTE PATIENT: [...] in her course. She ultimately underwent a jfbfk-kn-atqbc procedure on and tolerated it well (see [...] 1423 05/12/23 1105 PHART 7.39 7.37 7.34* QGJ0KED 33* 36 42 PO2ART 101 102 73* VOR4ONC 19.5* 20.4 22.1 LACTATEVEN 1.5 1.8 2.8* ARZ0CUJ 40 40 40 PFRATIOART2 252 255 182 VBG (Venous Blood Gas) Recent Labs 05/12/23 1557 05/12/23 1423 05/12/23 1105 LACTATEVEN 1.5 1.8 2.8* Mixed Venous Sat Recent Labs 05/12/23 1425 05/12/23 0508 05/12/23 0321 F1LQID4 59.9 30.7 32.7 LFT's: Recent Labs 05/14/23 0110 05/13/23 0115 05/12/23 0600 BILITOT 0.4 0.5 0.9 BILIDIR -- 0.3 -- ALBUMIN 3.6 3.0* 3.5 ALKPHOS 86 85 100 ALT 437* 903* 1,174* AST 319* 792* 1,435* No results found for: UPROTCREAT No results found for: TPROTEINPEP, ALBELECT No results found for: MICROALBUR, UHLA73DOI No results found for: HA1C Lab Results Component Value Date CALCIUM 8.5 05/14/2023 PHOS 4.7 (H) 05/08/2023 No results found for: 25OHVITD MICROBIOLOGY: ProcedureComponentValueUnitsDate/TimeUrine culture [[id number]]Collected: 05/11/231921Lab Status: Final resultSpecimen: Clean Catch UrineUpdated: [...] consulted for assessment if this patient needs BROADCAST TECHNICIAN. Atthis time, we can likely hold off on BROADCAST TECHNICIAN. Her volume status appears sufficient and her metabolic kanwal angements with mild acidosis is not too profound. Patient does not have significant uremic symptoms. We can hold off for today, but the patient is a high risk candidate for needing BROADCAST TECHNICIAN in future daysespecially if her Cr curve trends the direction it is for the next several days. S/p Srlxr-fl-Mhqav TF TAVR: Management per cardiology. On milrinone gtt. PLAN: - Please obtain following diagnostics: renal US, urinalysis, urine prot/Cr ratio, urine albumin/Cr ratio, CK, uric acid, serum osmol, daily VBGs - No acute indications for BROADCAST TECHNICIAN/dialysis. We will keep close eye on Cr trend, volume status, and metabolics to ensure patient still does not need BROADCAST TECHNICIAN as she ensues intrinsic renal recovery - [...] M.H.Katherine., M.A. PGY-V Nephrology-Hypertension Fellow Page # [phone] floor, Decorating Instructor [address] [place] [address] * Care Management - Mario Alberto Olmos [...] for a TAVR at 730. Returned to [facility] at 0945. Was intubated in the botany laboratory assistant due to agitation. Maintained bedrest [...] EDT Brief Operative Note Patient Name: Purnima Thakcer : [id number] MR#: [id number] Case Date: 05/12/2023 Surgeon: Surgeon(s) and Role: [...] EDT Brief post procedure Note: Patient Name: Punrima Thacker : [id number] MR#: [id number] Case Date: 05/12/2023 Operators Surgeon: Surgeon(s) and [...] main with 4.0 x 30 mm Resolute [place] [facility] Eluting Stent Perclose x1 + Angio-seal 8 Fr x1, RFA Manual pressure, LFA Manual pressure, LFV Endotracheal intubation (performed by cardiac anesthesia) Preliminary findings: Successful right transfemoral TAVR Dfysr-vx-Bqkaw with a 23 mm Lai 3 THV. [...] early complications. Full report to follow. Rebekah eTjeda MD, M.Sc. Structural Heart Disease Fellow Pager :[phone] Antelmo Sharma MD Pager [phone] * Op Note - Alirio Hudson MD - 05/12/2023 7:37 AM EDT Preop Diagnosis: Severe aortic stenosis, symptomatic. Postop Diagnosis: Same. Procedure: Transfemoral TAVR procedure with 23mm valve. Surgeon: Alirio Hudson M.D. Cloth Examiner Machine: Danny CULP Procedure: The patient was taken to the botany laboratory assistant. 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 Formerly [facility] [place] [address] STRUCTURAL HEART DISEASE CONSULTATION NOTE PRIMARY CARE [...] who had been referred for possible TAVR ntrit-lp-poeit evaluation. Her primary symptoms are of dyspnea [...] [facility]. 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 PROBLEM LIST: Patient Active Problem List Diagnosis Symptomatic severe aortic stenosis with low ejection fraction Mild coronary artery disease by [facility] 11/09/2022 Heart failure with reduced ejection [...] Lactate, whole blood, send to lab ([facility]) Result Value Ref Range [...] leads Confirmed by MD Harshil, Enrique Bell ([id number]) on 05/10/2023 8:11:46 AM Assessment and Plan: [...] alert Dr. Hudson of her inpatient status, [place] primary cardiac surgeon. Based on recent clinic [...] Antelmo Sharma MD Structural Heart Disease Pager [phone] * Plan of Care - Sarahi Nice RN - 05/10/2023 3:55 AM EDTSumavis: RN Note and Care Plan Sarahi Nice RN assumed care of pt at time of their arrival to room 362 from [facility]. Pt voices shortness of breath at [...] VTE (Venous Thromboembolism) Risk Flowsheets (Taken 05/09/2023 4216) VTE Prevention/Management: anticoagulant therapy Intervention: Prevent Infection [...] listening utilized Taken 05/08/20231999 by Alivia Kauffman shift mechanic/Support System Care: self-care encouraged support provided Problem: [...] Transfer from another hospital Location: admitted from [facility] Reason for Hospitalization: Critical aortic stenosis, [...] 180 days) Any patient receiving care in [place] must abide by [place] law. The hierarchy [...] (i) The agent with financial power of trade mark attorney or a conservator appointed in accordance [...] DME: none Home Address confirmed as: [address] [place] [address] Social & Family Supports: All names listed [...] type* / Secondary Insurance: [facility] ONLY if patient has Medicare A&B - Does this patient have secondary insurance?: Yes ; Prescription Coverage: Yes Preferred Pharmacy: updated to [facility] in [facility] Status: Patient is a : No Primary Care Provider confirmed: Magdalena Acosta MD [phone] Patient/Caregiver Goals of Treatment: Potential Needs for [...] transition of care planning. Alie Bradshaw RN, Pager-[phone] * Plan of Care - Emily Lucero RN - 05/08/2023 2:54 PM EDT OUTCOME EVALUATION NOTE: OUTCOME SUMMARY: Pt arrived from [facility]. A&O, no c/o pain or SOB. [...] AM EDT Appointment Hematology [place] [address] 05/12/2024 10:00 AM EDT Office Visit Hematology [place] [address] Markel Borjas MD [facility] [place] [address] 03/01/2025 4:15 PM EDT Office Visit Dermatology at [address] [place] [address] Marek Bonilla MD [address], [place] [address] Scheduled Referrals Name Type Priority Associated Diagnoses [...] Heart Cath W/Inj L Ventriculography, Img S&I ([id number]) 05/12/2023 7:37 AM EDT Aortic valve stenosis, [...] EST Narrative 07/08/2023 12:26 PM EST [address] [place] [address] ? Echocardiogram Report Name: PURNIMA THACKER ?Study Date: 07/08/2023 10:31 AMBP: 118/60 mmHg ? Patient Location: 4A : 1955 ? Height: 155 cm ? Account: [id number] Age: 67 yrs ? Weight: 74 kg [...] no significant change (post-procedure). Procedure Limited - 37550. Doppler - 50687. Color Doppler - 81749. Satisfactory quality. This study is limited because [...] Note Lee Kincaid MD - 07/08/2023 [address] [place] [address] Echocardiogram Report Name: PURNIMA THACKER Study Date: 12/07/309442:31 AMBP: 118/60 mmHg Patient Location: : 1955 Height: 155 cm Account: [id number] Age: 67 yrs Weight: 74 kg Gender: [...] is nosignificant change (post-procedure). Procedure Limited - 61533. Doppler - 10035. Color Doppler - 83664. Satisfactoryquality. This study is limited because of [...] EST) Glucose 93 65 - 199 mg/dL [facility] Comment:Diabetes: >=200 mg/d L plus symptoms Blood Urea Nitrogen 19(H) 8 - 18 mg/dL [facility] Creatinine 0.81 0.70 - 1.20 mg/dL [facility] Sodium 142 135 - 145 mmol/L [facility] Potassium 3.8 3.5 - 5.0 mmol/L [facility] Comment: Please note: ??Patients with WBC >100,000 may have falsely elevated Potassium levels. ??For accurate Potassium quantification in these patients send serum separator tube (gold top) for subsequent determinations. ??Contact the Clinical Chemistry Laboratory if there are any questions. Chloride 104 98 - 107 mmol/L [facility] Carbon Dioxide 26 22 - 31 mmol/L [facility] Anion Gap 12 5 - 15 mmol/L [facility] Calcium 10.2 8.5 - 10.5 mg/dL [facility] Protein, Total 7.4 6.1 - 8.0 g/dL [facility] Albumin 4.1 3.2 - 5.2 g/dL [facility] Aspartate Aminotransferase 24 0 - 30 unit/L [facility] Alanine Aminotransferase 12 0 - 30 unit/L [facility] Alkaline Phosphatase 93 35 - 105 unit/L [facility] Bilirubin, Total 0.3 0.2 - 1.3 mg/dL [facility] Est Glomerular Filtration Rate 80 >=60 mL/min/1. 73 m?? [facility] Comment: This patient's estimated [...] Lab Alirio Hudson MD CHEMISTRY ORDERABLE S [facility] [place] [address] * (ABNORMAL) Basic Metabolic Panel (non-fasting) (05/22/2023 3:57 AM EDT) Glucose 88 65 - 199 mg/dL [facility] Comment:Diabetes: >=200 mg/d L plus symptoms Blood Urea Nitrogen 21(H) 8 - 18 mg/dL [facility] Creatinine 0.69(L) 0.70 - 1.20 mg/dL [facility] Sodium 136 135 - 145 mmol/L [facility] Potassium 3.6 3.5 - 5.0 mmol/L [facility] Comment: Please note: ??Patients with WBC >100,000 may have falsely elevated Potassium levels. ??For accurate Potassium quantification in these patients send serum separator tube (gold top) for subsequent determinations. ??Contact the Clinical Chemistry Laboratory if there are any questions. Chloride 102 98 - 107 mmol/L [facility] Carbon Dioxide 23 22 - 31 mmol/L [facility] Anion Gap 11 5 - 15 mmol/L [facility] Calcium 8.6 8.5 - 10.5 mg/dL [facility] Est Glomerular Filtration Rate 95 >=60 mL/min/1. 73 m?? [facility] Comment: This patient's estimated [...] Lab Mara Maggie ANURAG CHEMISTRY ORDERABL ES [facility] [place] [address] * (ABNORMAL) Basic Metabolic Panel (non-fasting) (05/21/2023 5:06 AM EDT) Glucose 87 65 - 199 mg/dL [facility] Comment:Diabetes: >=200 mg/d L plus symptoms Blood Urea Nitrogen 25(H) 8 - 18 mg/dL [facility] Creatinine 0.84 0.70 - 1.20 mg/dL [facility] Sodium 136 135 - 145 mmol/L [facility] Potassium 3.6 3.5 - 5.0 mmol/L [facility] Comment: Please note: ??Patients with WBC >100,000 may have falsely elevated Potassium levels. ??For accurate Potassium quantification in these patients send serum separator tube (gold top) for subsequent determinations. ??Contact the Clinical Chemistry Laboratory if there are any questions. Chloride 102 98 - 107 mmol/L [facility] Carbon Dioxide 26 22 - 31 mmol/L [facility] Anion Gap 8 5 - 15 mmol/L [facility] Calcium 8.9 8.5 - 10.5 mg/dL [facility] Est Glomerular Filtration Rate 76 >=60 mL/min/1. 73 m?? [facility] Comment: This patient's estimated [...] Narrative Resulting Agency Comment Spec In Lab [facility] HEAD [employer] PROFESSIONAL CHEMISTRY ORDERABL ES Performing Organization Address City/[facility]/ZIP Co de Phone Number [facility] [place] [address] * Lavender Tube HOLD (05/20/2023 2:52 AM EDT) Lavender Hold Sample in lab. [facility] Blood Venous Draw / Unknown 05/20/2023 2:52 AM EDT 05/20/2023 3:04 AM EDT [facility] [employer] PROFESSIONAL HEMATOLOGY ORDERAB LES Performing Organization Address City/[facility]/ZIP Co de Phone Number [facility] [place] [address] * (ABNORMAL) Basic Metabolic Panel (non-fasting) (05/20/2023 2:52 AM EDT) Glucose 152 65 - 199 mg/dL [facility] Comment:Diabetes: >=200 mg/d L plus symptoms Blood Urea Nitrogen 33(H) 8 - 18 mg/dL [facility] Creatinine 0.82 0.70 - 1.20 mg/dL [facility] Sodium 137 135 - 145 mmol/L [facility] Potassium 3.7 3.5 - 5.0 mmol/L [facility] Comment: Please note: ??Patients with WBC >100,000 may have falsely elevated Potassium levels. ??For accurate Potassium quantification in these patients send serum separator tube (gold top) for subsequent determinations. ??Contact the Clinical Chemistry Laboratory if there are any questions. Chloride 99 98 - 107 mmol/L [facility] Carbon Dioxide 22 22 - 31 mmol/L [facility] Anion Gap 16(H) 5 - 15 mmol/L [facility] Calcium 9.0 8.5 - 10.5 mg/dL [facility] Est Glomerular Filtration Rate 78 >=60 mL/min/1. 73 m?? [facility] Comment: This patient's estimated [...] Lab Mara Serrano APRN CHEMISTRY ORDERABL ES [facility] [place] [address] * (ABNORMAL) Potassium (05/20/2023 2:52 AM EDT) Potassium 3.4(L) 3.5 - 5.0 mmol/L [facility] Comment: Please note: ??Patients with WBC >100,000 may have falsely elevated Potassium levels. ??For accurate Potassium quantification in these patients send serum separator tube (gold top) for subsequent determinations. ??Contact the Clinical Chemistry Laboratory if there are any questions. Blood 05/20/2023 2:52 AM EDT 05/20/2023 3:03 AM EDT Narrative Resulting Agency Comment Spec In Lab Mraa Serrano [employer] PROFESSIONAL CHEMISTRY ORDERABL ES [facility] [place] [address] * XR Chest PA & Lateral (Generic) [...] who have questions please contact the health acute care occupational therapist that requested your imaging first. ? Narrative [...] patients who have questions please contactthe health acute care occupational therapist that requested your imaging first. Alirio Hudson MD IMG DX ORDERABLES * (ABNORMAL) Basic Metabolic Panel (non-fasting) (05/19/2023 5:49 AM EDT) Glucose 93 65 - 199 mg/dL [facility] Comment:Diabetes: >=200 mg/d L plus symptoms Blood Urea Nitrogen 45(H) 8 - 18 mg/dL [facility] Creatinine 1.02 0.70 - 1.20 mg/dL [facility] Sodium 138 135 - 145 mmol/L [facility] Potassium 3.9 3.5 - 5.0 mmol/L [facility] Comment: Please note: ??Patients with WBC >100,000 may have falsely elevated Potassium levels. ??For accurate Potassium quantification in these patients send serum separator tube (gold top) for subsequent determinations. ??Contact the Clinical Chemistry Laboratory if there are any questions. Chloride 102 98 - 107 mmol/L [facility] Carbon Dioxide 26 22 - 31 mmol/L [facility] Anion Gap 10 5 - 15 mmol/L [facility] Calcium 9.7 8.5 - 10.5 mg/dL [facility] Est Glomerular Filtration Rate 60 >=60 mL/min/1. 73 m?? [facility] Comment: This patient's estimated [...] Resulting Agency Comment Spec In [facility] Performing Organization Address City/State/[facility] Co de Phone Number [facility] [place] [address] * IR Chest Tube Placement Right (05/18/2023 [...] Panel (non-fasting) (05/18/2023 2:54 AM EDT) Pathologist [facility] Glucose 95 65 - 199 mg/dL [facility] Comment:Diabetes: >=200 mg/d L plus symptoms Blood Urea Nitrogen 71(H) 8 - 18 mg/dL [facility] Comment:result rechecked-[facility] Creatinine 1.64(H) 0.70 - 1.20 mg/dL [facility] Comment:result rechecked-[facility] Sodium 137 135 - 145 mmol/L [facility] Potassium 3.7 3.5 - 5.0 mmol/L [facility] Comment: Please note: ??Patients with WBC >100,000 may have falsely elevated Potassium levels. ??For accurate Potassium quantification in these patients send serum separator tube (gold top) for subsequent determinations. ??Contact the Clinical Chemistry Laboratory if there are any questions. Chloride 100 98 - 107 mmol/L [facility] Carbon Dioxide 24 22 - 31 mmol/L [facility] Anion Gap 13 5 - 15 mmol/L [facility] Calcium 9.7 8.5 - 10.5 mg/dL [facility] Est Glomerular Filtration Rate [...] Agency Comment Spec In Lab Marakatherine Serrano HEAD [employer] PROFESSIONAL CHEMISTRY ORDERABL ES [facility] [place] [address] * XR Chest PA & Lateral (Generic) [...] who have questions please contact the health acute care occupational therapist that requested your imaging first. ? Electronically signed by: Ghassan Reyes MD, [facility] ??([phone]), at 05/17/2023 11:46 AM Narrative 05/17/2023 11:46 [...] patients who have questions please contactthe health acute care occupational therapist that requested your imaging first. Alirio Hudson MD IMG DX ORDERABLES * (ABNORMAL) Comprehensive metabolic panel (non-fasting) (05/17/2023 4:35 AM EDT) Glucose 89 65 - 199 mg/dL [facility] Comment:Diabetes: >=200 mg/d L plus symptoms Blood Urea Nitrogen 97(H) 8 - 18 mg/dL [facility] Creatinine 2.97(H) 0.70 - 1.20 mg/dL [facility] Comment:result rechecked-JSJ Sodium 135 135 - 145 mmol/L [facility] Potassium 4.1 3.5 - 5.0 mmol/L [facility] Comment: Please note: ??Patients with WBC >100,000 may have falsely elevated Potassium levels. ??For accurate Potassium quantification in these patients send serum separator tube (gold top) for subsequent determinations. ??Contact the Clinical Chemistry Laboratory if there are any questions. Chloride 97(L) 98 - 107 mmol/L [facility] Carbon Dioxide 22 22 - 31 mmol/L [facility] Anion Gap 16(H) 5 - 15 mmol/L [facility] Calcium 9.6 8.5 - 10.5 mg/dL [facility] Protein, Total 6.5 6.1 - 8.0 g/dL [facility] Albumin 3.7 3.2 - 5.2 g/dL [facility] Aspartate Aminotransferase 58(H) 0 - 30 unit/L [facility] Alanine Aminotransferase 66(H) 0 - 30 unit/L [facility] Alkaline Phosphatase 86 35 - 105 unit/L [facility] Bilirubin, Total 0.6 0.2 - 1.3 mg/dL [facility] Est Glomerular Filtration Rate 17(L) >=60 mL/min/1. 73 m?? [facility] Comment: This patient's estimated [...] MD CHEMISTRY ORDERABLE S Performing Organization Address [facility] Co de Phone Number [facility] [place] [address] * Potassium (05/16/2023 11:15 PM EDT) Potassium 3.7 3.5 - 5.0 mmol/L [facility] Comment: Please note: ??Patients [...] MD CHEMISTRY ORDERABLE S Performing Organization Address [facility] Co de Phone Number [facility] [place] [address] * Magnesium (05/16/2023 5:22 PM EDT) Magnesium 0.96 0.69 - 1.07 mmol/L [facility] Blood 05/16/2023 5:22 PM EDT 05/16/2023 5:27 PM EDT Narrative Resulting Agency Comment Spec In Lab Alirio Hudson MD CHEMISTRY ORDERABLE S Performing Organization Address [facility] Co de Phone Number [facility] [place] [address] * (ABNORMAL) Basic Metabolic Panel (non-fasting) (05/16/2023 5:22 PM EDT) Glucose 106 65 - 199 mg/dL [facility] Comment:Diabetes: >=200 mg/d L plus symptoms Blood Urea Nitrogen 103(H) 8 - 18 mg/dL [facility] Creatinine 3.91(H) 0.70 - 1.20 mg/dL [facility] Comment:result rechecked-imm Sodium 132(L) 135 - 145 mmol/L [facility] Potassium 3.6 3.5 - 5.0 mmol/L [facility] Comment: Please note: ??Patients with WBC >100,000 may have falsely elevated Potassium levels. ??For accurate Potassium quantification in these patients send serum separator tube (gold top) for subsequent determinations. ??Contact the Clinical Chemistry Laboratory if there are any questions. Chloride 92(L) 98 - 107 mmol/L [facility] Carbon Dioxide 22 22 - 31 mmol/L [facility] Anion Gap 18(H) 5 - 15 mmol/L [facility] Calcium 9.7 8.5 - 10.5 mg/dL [facility] Est Glomerular Filtration Rate 12(L) >=60 mL/min/1. 73 m?? [facility] Comment: This patient's estimated [...] Lab Alirio Hudson MD CHEMISTRY ORDERABLE S [facility] [place] [address] * (ABNORMAL) Potassium (05/16/2023 11:43 AM EDT) Potassium 3.3(L) 3.5 - 5.0 mmol/L [facility] Comment: Please note: ??Patients [...] [facility]ZIP Co de Phone Number [facility] [place] [address] * (ABNORMAL) Ferritin (05/16/2023 4:41 AM EDT) Ferritin 1,813(H) 30 - 400 ng/mL [facility] Comment: Pediatric reference ranges not verified at [facility], interpret with caution. Reference ranges for females greater than 50 years of age approach values for men, i.e., 30-400 ng/mL. Blood 05/16/2023 4:41 AM EDT 05/16/2023 4:54 AM EDT Narrative Resulting Agency Comment Spec In Lab Kristopher Ayoub MD CHEMISTRY ORDERABLES Performing Organization Address City/[facility]/ZIP Co de Phone Number [facility] [place] [address] * (ABNORMAL) PTH (05/16/2023 4:41 AM EDT) [facility] Parathyroid Hormone 120(H) 15 - 65 pg/mL [facility] Blood 05/16/2023 4:41 AM EDT 05/16/2023 4:54 AM EDT Narrative Resulting Agency Comment Spec In Lab Kristopher Ayoub MD CHEMISTRY ORDERABLES Performing Organization Address City/[facility]/ZIP Co de Phone Number [facility] [place] [address] * Vitamin D, 25-Hydroxy (05/16/2023 4:41 AM EDT) [facility] Vitamin D Total 25 OH 33 21 - 100 ng/mL [facility] Vit D Interp Sufficient [facility] Blood 05/16/2023 4:41 AM EDT 05/16/2023 4:54 AM EDT Narrative Resulting Agency Comment Spec In Lab Kristopher Ayoub MD CHEMISTRY ORDERABLES [facility] [place] [address] * (ABNORMAL) Blood Gas Venous ([facility]) (05/16/2023 4:22 AM EDT) pH, Venous 7.41 7.32 - 7.42 [facility] PCO2, Venous 32(L) 41 - 51 mmHg [facility] PO2, Venous 73(H) 25 - 40 mmHg [facility] Bicarbonate, Venous 19.6 mmol/L [facility] Base Excess, Venous -5.1 mmol/L [facility] Hgb Blood Gas 9.7(L) 11.7 - 15.5 g/dL [facility] Oxyhemoglobin, Venous 92.8 % [facility] Carboxyhemoglob in, Venous 0.1 % [facility] Comment: Nonsmokers: 0.5-1.5% COHB Smokers: Variable, but usually less than 10% Toxic: 20-30% COHB Lethal: Greater than 60% COHB Methemoglobin, Venous 0.3 <=1.5 % [facility] Na Whole Blood 130(L) 135 - 145 mmol/L [facility] K Whole Blood 3.7 3.5 - 5.0 mmol/L [facility] Comment: Please note: Patients with WBC >100,000 may have falsely elevated Potassium levels. Contact the Clinical Chemistry Laboratory if there are any questions. ICa Whole Blood 1.15 1.15 - 1.33 mmol/L [facility] Comment: Note: ??Total bilirubin higher than 20 mg/dL may lead to falsely low ionized calcium. CL Whole Blood 95(L) 98 - 107 mmol/L [facility] Gluc Whole Bld 82 65 - 199 mg/dL [facility] Comment:Diabetes: >=200 mg/d L plus symptoms Lactate WB 1.1 0.5 - 2.2 mmol/L [facility] Blood Gas Source Venous [facility] Blood Venous Draw / Unknown 05/16/2023 4:22 AM EDT 05/16/2023 4:31 AM EDT Narrative Resulting Agency Comment Spec In Lab Bonita TOBAR [place] [address] * (ABNORMAL) Differential, Automated (05/16/2023 4:20 AM EDT) Neutrophil % 84.1 % [facility] Neutrophil Absolute 6.22(H) 1.70 - 6.10 x10(3)/mc L [facility] Lymph % 5.8 % [facility] Lymphocytes Abs 0.4(L) 0.9 - 3.2 x10(3)/mc L [facility] Monocyte % 8.8 % [facility] Monocyte Abs 0.6 0.3 - 0.9 x10(3)/mc L [facility] Eos % 0.4 % [facility] Eosinophils Abs 0.0 0.0 - 0.4 x10(3)/mc L [facility] Basophil % 0.0 % [facility] Baso Absolute 0.0 0.0 - 0.1 x10(3)/mc L [facility] Immature Gran % 0.90 % [facility] Comment: Immature granulocytes(IG's)percentage and absolute count will include metamyelocytes, myelocytes, and promyelocytes. Blood smears from CBCs yielding IG's will be scanned manually for concordance. If this scan disagrees with the automated IG or if promyelocytes are noted, a manual differential will be performed. Immature Gran Absolute 0.07(H) 0.00 - 0.04 x10(3)/mc L [facility] Blood 05/16/2023 4:20 AM EDT 05/16/2023 4:29 AM EDT Narrative Resulting Agency Comment Spec In Lab James Agustin MD HEMATOLOGY ORDER JODIE Performing Organization Address City/[facility]/[place] [address] * (ABNORMAL) Hemogram (05/16/2023 4:20 AM EDT) White Blood Cell 7.4 4.0 - 9.5 x10(3)/mc L [facility] Red Blood Cell 2.40(L) 4.00 - 5.21 x10(6)/mc L [facility] Hemoglobin 7.8(L) 11.7 - 15.5 g/dL [facility] Hematocrit 22.5(L) 35.7 - 45.8 % [facility] Mean Cell Volume 93.8 82.6 - 94.4 fL [facility] Mean Cell Hemoglobin 32.5(H) 27.1 - 32.0 pg [facility] Mean Cell Hemoglobin Concentration 34.7 31.7 - 35.0 g/dL [facility] Platelet 120(L) 145 - 357 x10(3)/mc L [facility] RDW Standard Deviation 42.9 37.0 - 46.0 fL [facility] RDW coefficient of variation 12.9 11.5 - 14.1 % [facility] Mean Platelet Volume 11.3 7.6 - 12.9 fL [facility] NRBC% auto 0.7 % [facility] NRBC Absolute 0.050(H) 0.000 - 0.000 x10(3)/ L [facility] Blood 05/16/2023 4:20 AM EDT 05/16/2023 4:29 AM EDT Narrative Resulting Agency Comment Spec In Lab James Agustin MD HEMATOLOGY ORDER JODIE [facility] [place] [address] * (ABNORMAL) Basic Metabolic Panel (non-fasting) (05/16/2023 4:20 AM EDT) Glucose 89 65 - 199 mg/dL [facility] Comment:Diabetes: >=200 mg/d L plus symptoms Blood Urea Nitrogen 108(H) 8 - 18 mg/dL [facility] Creatinine 4.74(H) 0.70 - 1.20 mg/dL [facility] Comment:result rechecked-OLIVA Sodium 132(L) 135 - 145 mmol/L [facility] Potassium 3.9 3.5 - 5.0 mmol/L [facility] Comment: Please note: ??Patients with WBC >100,000 may have falsely elevated Potassium levels. ??For accurate Potassium quantification in these patients send serum separator tube (gold top) for subsequent determinations. ??Contact the Clinical Chemistry Laboratory if there are any questions. Chloride 95(L) 98 - 107 mmol/L [facility] Carbon Dioxide 18(L) 22 - 31 mmol/L [facility] Anion Gap 19(H) 5 - 15 mmol/L [facility] Calcium 9.2 8.5 - 10.5 mg/dL [facility] Est Glomerular Filtration Rate 10(L) >=60 mL/min/1. 73 m?? [facility] Comment: This patient's estimated [...] Lab Alirio Hudson MD CHEMISTRY ORDERABLE S [facility] [place] [address] * (ABNORMAL) Iron and TIBC (05/16/2023 4:20 AM EDT) Iron 31 30 - 150 mcg/dL [facility] TIBC 259 250 - 450 mcg/dL [facility] Iron Saturation 12(L) 20 - 50 % [facility] Blood 05/16/2023 4:20 AM EDT 05/16/2023 4:29 AM EDT Narrative Resulting Agency Comment Spec In Lab Kristopher Ayoub MD CHEMISTRY ORDERABLES [facility] [place] [address] * (ABNORMAL) Basic Metabolic Panel (non-fasting) (05/15/2023 12:50 AM EDT) Glucose 101 65 - 199 mg/dL [facility] Comment:Diabetes: >=200 mg/d L plus symptoms Blood Urea Nitrogen 109(H) 8 - 18 mg/dL [facility] Creatinine 5.62(H) 0.70 - 1.20 mg/dL [facility] Comment:result rechecked-[place] Sodium 131(L) 135 - 145 mmol/L [facility] Comment:result rechecked-[place] Potassium 3.7 3.5 - 5.0 mmol/L [facility] Comment: result rechecked-[place] Please note: ??Patients with WBC >100,000 may have falsely elevated Potassium levels. ??For accurate Potassium quantification in these patients send serum separator tube (gold top) for subsequent determinations. ??Contact the Clinical Chemistry Laboratory if there are any questions. Chloride 92(L) 98 - 107 mmol/L [facility] Comment:result rechecked-[place] Carbon Dioxide 18(L) 22 - 31 mmol/L [facility] Comment:result rechecked-[place] Anion Gap 21(H) 5 - 15 mmol/L [facility] Calcium 8.9 8.5 - 10.5 mg/dL [facility] Est Glomerular Filtration Rate 8(L) >=60 mL/min/1. 73 m?? [facility] Comment: This patient's estimated [...] [facility]ZIP Co de Phone Number [facility] [place] [address] * (ABNORMAL) Hemogram (05/15/2023 12:50 AM EDT) White Blood Cell 9.1 4.0 - 9.5 x10(3)/mc L [facility] LABORATORY Red Blood Cell 2.19(L) 4.00 - 5.21 x10(6)/mc L [facility] Hemoglobin 7.2(L) 11.7 - 15.5 g/dL [facility] Hematocrit 20.6(L) 35.7 - 45.8 % [facility] Mean Cell Volume 94.1 82.6 - 94.4 fL [facility] Mean Cell Hemoglobin 32.9(H) 27.1 - 32.0 pg [facility] Mean Cell Hemoglobin Concentration 35.0 31.7 - 35.0 g/dL [facility] Platelet 109(L) 145 - 357 x10(3)/mc L [facility] RDW Standard Deviation 43.6 37.0 - 46.0 fL [facility] RDW coefficient of variation 12.9 11.5 - 14.1 % [facility] Mean Platelet Volume 10.4 7.6 - 12.9 fL [facility] NRBC% auto 2.1 % [facility] NRBC Absolute 0.190(H) 0.000 - 0.000 x10(3)/mc L [facility] Blood 05/15/2023 12:5 0 AM EDT 05/15/2023 12:52 AM EDT Narrative Resulting Agency Comment Spec In Lab Alirio Hudson MD HEMATOLOGY ORDERABL ES Performing Organization Address [facility] Co de Phone Number [facility] [place] [address] * (ABNORMAL) BLOOD GAS 2 VENOUS (05/15/2023 12:49 AM EDT) pH, Venous 7.33 7.32 - 7.42 [facility] PCO2, Venous 37(L) 41 - 51 mmHg [facility] PO2, Venous 34 25 - 40 mmHg [facility] Bicarbonate, Venous 19.1 mmol/L [facility] Base Excess, Venous -6.8 mmol/L [facility] Hgb Blood Gas 10.8(L) 11.7 - 15.5 g/dL [facility] Oxyhemoglobin, Venous 58.1 % [facility] Carboxyhemoglob in, Venous 0.3 % [facility] Comment: Nonsmokers: 0.5-1.5% COHB Smokers: Variable, but usually less than 10% Toxic: 20-30% COHB Lethal: Greater than 60% COHB Methemoglobin, Venous 0.6 <=1.5 % [facility] Na Whole Blood 136 135 - 145 mmol/L [facility] K Whole Blood 3.7 3.5 - 5.0 mmol/L [facility] Comment: Please note: Patients with WBC >100,000 may have falsely elevated Potassium levels. Contact the Clinical Chemistry Laboratory if there are any questions. ICa Whole Blood 1.12(L) 1.15 - 1.33 mmol/L [facility] Comment: Note: ??Total bilirubin higher than 20 mg/dL may lead to falsely low ionized calcium. CL Whole Blood 95(L) 98 - 107 mmol/L [facility] Gluc Whole Bld 101 65 - 199 mg/dL [facility] Comment:Diabetes: >=200 mg/d L plus symptoms Lactate WB 1.3 0.5 - 2.2 mmol/L [facility] Flow, Mike 1.0 LPM [facility] Blood Gas Source Venous [facility] Blood 05/15/2023 12:4 9 AM EDT 05/15/2023 12:49 AM EDT Alirio Hudson MD POINT OF CARE TEST ORDERABLES [facility] [place] [address] * US Retroperitoneal Complete (05/14/2023 3:53 PM [...] PM Electronically signed by: Hayden Robledo MD, [facility] ([phone]), at 05/14/2023 4:32 PM Thank you for letting us participate in the care of this patient. If you are a health care provider and have any questions regarding this report, please contact the number above. For patients who have questions, please contact the health acute care occupational therapist that requested your imaging first. ? Hayden Robledo, Staff Physician Electronically Signed Final Report ?? 05/14/2023 04:39 pm Narrative 05/14/2023 4:39 PM EDT Renal ? (Signed Final 05/14/2023 04:39 pm) PATIENT INFO: ID #: ? [id number] ?: ??[birth year] (67 yrs)(F) Name: ? PURNIMA THACKER ?Visit Date: 05/14/2023 03:44 pm PERFORMED BY: Attending: ?Meena CULP, Hayden Stafford Resident: ? Nell CULP, Anand August Performed By: ? Consuelo Tello RDMS Referred By: ?LAIRIO HUDSON Location: ? [place] SERVICE(S) PROVIDED: URETRO - Retroperitoneal Complete - [id number] ? [id number] INDICATIONS: EVANS COMPARISON: CT: Abdomen/Pelvis 05/11/23 RIGHT [...] 05/14/2023 04:39 pm) PATIENT INFO: ID #: [id number] : 55 (67 yrs)(F) Name: PURNIMA THACKER Visit Date: 05/14/2023 03:44 pm PERFORMED BY: Attending: Hayden Robledo MD Resident: Anand Camejo MD Performed By: Consuelo Tello RDMS Referred By: ALIRIO HUDSON Location: [place] SERVICE(S) PROVIDED: URETRO - Retroperitoneal Complete - [id number] INDICATIONS: EVANS COMPARISON: CT: Abdomen/Pelvis 05/11/23 RIGHT [...] PM Electronically signed by: Hayden Robledo MD, [facility] ([phone]), at 05/14/2023 4:32 PM Thank you for letting us participate in the care of this patient. If you are a health care provider and have any questions regarding this report, please contact the number above. For patients who have questions, please contact the health acute care occupational therapist that requested your imaging first. Hayden Robledo, Staff Physician Electronically Signed Final Report 05/14/2023 04:39 pm Alirio Hudson MD IMG US GEN ORDERABL ES * CK (05/14/2023 3:17 PM EDT) Creatine Kinase 123 0 - 160 unit/L [facility] Blood 05/14/2023 3:17 PM EDT 05/14/2023 3:31 PM EDT Narrative Resulting Agency Comment Spec In Lab Alirio Hudson MD CHEMISTRY ORDERABLE S Performing Organization Address [facility] Co de Phone Number [facility] [place] [address] * (ABNORMAL) Uric acid (05/14/2023 3:17 PM EDT) Uric Acid 14.9(H) 2.5 - 6.5 mg/dL [facility] Blood 05/14/2023 3:17 PM EDT 05/14/2023 3:31 PM EDT Narrative Resulting Agency Comment Spec In Lab Alirio Hudson MD CHEMISTRY ORDERABLE S Performing Organization Address [facility] [place] [address] * (ABNORMAL) Osmolality (05/14/2023 3:17 PM EDT) Osmolality 311(H) 275 - 295 mOsm/kg [facility] Blood 05/14/2023 3:17 PM EDT 05/14/2023 3:31 PM EDT Narrative Resulting Agency Comment Spec In Lab Alirio Hudson MD [place] [address] * (ABNORMAL) Differential, Automated (05/14/2023 1:10 AM EDT) Pathologist [facility] Neutrophil % 87.2 % [facility] Neutrophil Absolute 9.74(H) 1.70 - 6.10 x10(3)/mc L [facility] Lymph % 3.9 % [facility] Lymphocytes Abs 0.4(L) 0.9 - 3.2 x10(3)/mc L [facility] Monocyte % 7.9 % [facility] Monocyte Abs 0.9 0.3 - 0.9 x10(3)/mc L [facility] Eos % 0.0 % [facility] Eosinophils Abs 0.0 0.0 - 0.4 x10(3)/mc L [facility] Basophil % 0.1 % [facility] Baso Absolute 0.0 0.0 - 0.1 x10(3)/mc L [facility] Immature Gran % 0.90 % [facility] Comment: Immature granulocytes(IG's)percentage and absolute count will include metamyelocytes, myelocytes, and promyelocytes. Blood smears from CBCs yielding IG's will be scanned manually for concordance. If this scan disagrees with the automated IG or if promyelocytes are noted, a manual differential will be performed. Immature Gran Absolute 0.10(H) 0.00 - 0.04 x10(3)/mc L [facility] Blood 05/14/2023 1:10 AM EDT 05/14/2023 1:24 AM EDT Narrative Resulting Agency Comment Spec In Lab Bonita TOBAR HEMATOLOGY ORDERABLE S [facility] [place] [address] * (ABNORMAL) Hemogram (05/14/2023 1:10 AM EDT) White Blood Cell 11.2(H) 4.0 - 9.5 x10(3)/mc L [facility] Red Blood Cell 2.19(L) 4.00 - 5.21 x10(6)/mc L [facility] Hemoglobin 7.2(L) 11.7 - 15.5 g/dL [facility] Hematocrit 20.3(L) 35.7 - 45.8 % [facility] Mean Cell Volume 92.7 82.6 - 94.4 fL [facility] Mean Cell Hemoglobin 32.9(H) 27.1 - 32.0 pg [facility] Mean Cell Hemoglobin Concentration 35.5(H) 31.7 - 35.0 g/dL [facility] Platelet 112(L) 145 - 357 x10(3)/mc L [facility] RDW Standard Deviation 41.4 37.0 - 46.0 fL [facility] RDW coefficient of variation 12.5 11.5 - 14.1 % [facility] Mean Platelet Volume 10.4 7.6 - 12.9 fL [facility] NRBC% auto 1.5 % [facility] NRBC Absolute 0.170(H) 0.000 - 0.000 x10(3)/mc L [facility] Blood 05/14/2023 1:10 AM EDT 05/14/2023 1:24 AM EDT Narrative Resulting Agency Comment Spec In Lab Bonita TOBAR HEMATOLOGY ORDERABLE S [facility] [place] [address] * (ABNORMAL) Comprehensive metabolic panel (non-fasting) (05/14/2023 1:10 AM EDT) Glucose 120 65 - 199 mg/dL [facility] Comment:Diabetes: >=200 mg/d L plus symptoms Blood Urea Nitrogen 98(H) 8 - 18 mg/dL [facility] Creatinine 4.80(H) 0.70 - 1.20 mg/dL [facility] Comment:result rechecked-ssc Sodium 132(L) 135 - 145 mmol/L [facility] Potassium 4.1 3.5 - 5.0 mmol/L [facility] Comment: Please note: ??Patients with WBC >100,000 may have falsely elevated Potassium levels. ??For accurate Potassium quantification in these patients send serum separator tube (gold top) for subsequent determinations. ??Contact the Clinical Chemistry Laboratory if there are any questions. Chloride 94(L) 98 - 107 mmol/L [facility] Carbon Dioxide 18(L) 22 - 31 mmol/L [facility] Anion Gap 20(H) 5 - 15 mmol/L [facility] Calcium 8.5 8.5 - 10.5 mg/dL [facility] Protein, Total 5.8(L) 6.1 - 8.0 g/dL [facility] Albumin 3.6 3.2 - 5.2 g/dL [facility] Aspartate Aminotransferase 319(H) 0 - 30 unit/L [facility] Alanine Aminotransferase 437(H) 0 - 30 unit/L [facility] Alkaline Phosphatase 86 35 - 105 unit/L [facility] Bilirubin, Total 0.4 0.2 - 1.3 mg/dL [facility] Est Glomerular Filtration Rate 9(L) >=60 mL/min/1. 73 m?? [facility] Comment: This patient's estimated [...] MD CHEMISTRY ORDERABLE S Performing Organization Address [facility] Co de Phone Number [facility] [place] [address] * APTT (05/13/2023 10:15 AM EDT) Partial Thromboplastin Time 27 25 - 37 sec [facility] Comment: The PTT is [...] Performing Organization Address [facility] Co de Phone Number [facility] [place] [address] * (ABNORMAL) Prothrombin Time (05/13/2023 10:15 AM EDT) Prothrombin Time 14.6(H) 9.4 - 12.5 sec [facility] International Normalization Ratio 1.3 [facility] Comment: An INR <2.0 [...] MD HEMATOLOGY ORDERABL ES Performing Organization Address [facility] Co de Phone Number [facility] [place] [address] * EKG 12 Lead (05/13/2023 9:22 AM EDT) Pathologist [facility] Ventricular rate 92 BPM MUSE SYSTEM Atrial Rate 92 BPM MUSE SYSTEM P-R Interval 140 ms MUSE SYSTEM QRS Duration 104 ms MUSE SYSTEM Q-T Interval 384 ms MUSE SYSTEM QTC Calculated (Bezet) 474 ms MUSE SYSTEM Calculated P [place] 33 degrees MUSE SYSTEM Calculated R [place] 41 degrees MUSE SYSTEM Calculated T [place] -35 degrees MUSE SYSTEM INTERPRETATION Sinus rhythm with frequent Premature ventricular complexes Septal infarct , age undetermined ST & T wave abnormality, consider lateral ischemia Abnormal ECG When compared with ECG of 12-MAY-2023 10:10, Premature ventricular complexes are now Present I personally reviewed the tracing and edited the fellows interpretation Confirmed by fellow MD Anitha, Carissa ([id number]) on 05/13/2023 3:25:30 PM Confirmed by Maxx Best ([id number]) on 05/13/2023 8:30:56 PM MUSE SYSTEM 05/13/2023 9:22 AM EDT 05/13/2023 8:30 PM EDT Alirio Hudson MD ECG ORDERABLES MUSE SYSTEM * (ABNORMAL) Differential, Automated (05/13/2023 1:15 AM EDT) [facility] Neutrophil % 88.1 % [facility] Neutrophil Absolute 7.62(H) 1.70 - 6.10 x10(3)/mc L [facility] Lymph % 3.1 % [facility] Lymphocytes Abs 0.3(L) 0.9 - 3.2 x10(3)/mc L [facility] Monocyte % 7.9 % [facility] Monocyte Abs 0.7 0.3 - 0.9 x10(3)/mc L [facility] Eos % 0.0 % [facility] Eosinophils Abs 0.0 0.0 - 0.4 x10(3)/mc L [facility] Basophil % 0.1 % [facility] Baso Absolute 0.0 0.0 - 0.1 x10(3)/mc L [facility] Immature Gran % 0.80 % [facility] Comment: Immature granulocytes(IG's)percentage and absolute count will include metamyelocytes, myelocytes, and promyelocytes. Blood smears from CBCs yielding IG's will be scanned manually for concordance. If this scan disagrees with the automated IG or if promyelocytes are noted, a manual differential will be performed. Immature Gran Absolute 0.07(H) 0.00 - 0.04 x10(3)/mc L [facility] Blood 05/13/2023 1:15 AM EDT 05/13/2023 1:29 AM EDT Narrative Resulting Agency Comment Spec In Lab Lorri TOBAR HEMATOLOGY ORDERABLE S [facility] [place] [address] * (ABNORMAL) Hemogram (05/13/2023 1:15 AM EDT) White Blood Cell 8.6 4.0 - 9.5 x10(3)/[facility] Red Blood Cell 2.37(L) 4.00 - 5.21 x10(6)/[facility] Hemoglobin 7.8(L) 11.7 - 15.5 g/dL [facility] Hematocrit 22.2(L) 35.7 - 45.8 % [facility] Mean Cell Volume 93.7 82.6 - 94.4 fL [facility] Mean Cell Hemoglobin 32.9(H) 27.1 - 32.0 pg [facility] Mean Cell Hemoglobin Concentration 35.1(H) 31.7 - 35.0 g/dL [facility] Platelet 130(L) 145 - 357 x10(3)/[facility] RDW Standard Deviation 41.7 37.0 - 46.0 fL [facility] RDW coefficient of variation 12.5 11.5 - 14.1 % [facility] Mean Platelet Volume 10.2 7.6 - 12.9 fL [facility] NRBC% auto 0.5 % [facility] NRBC Absolute 0.040(H) 0.000 - 0.000 x10(3)/ L [facility] Blood 05/13/2023 1:15 AM EDT 05/13/2023 1:29 AM EDT Narrative Resulting Agency Comment Spec In Lab Lorri TOBAR HEMATOLOGY ORDERABLE S Performing Organization Address City/[facility]/ZIP Co de Phone Number [facility] [place] [address] * (ABNORMAL) Hepatic Function Panel (05/13/2023 1:15 AM EDT) Protein, Total 5.5(L) 6.1 - 8.0 g/dL [facility] Albumin 3.0(L) 3.2 - 5.2 g/dL [facility] Aspartate Aminotransferase 792(H) 0 - 30 unit/L [facility] Alanine Aminotransferase 903(H) 0 - 30 unit/L [facility] Alkaline Phosphatase 85 35 - 105 unit/L [facility] Bilirubin, Total 0.5 0.2 - 1.3 mg/dL [facility] Bilirubin, Direct 0.3 0.0 - 0.3 mg/dL [facility] Blood 05/13/2023 1:15 AM EDT 05/13/2023 1:29 AM EDT Narrative Resulting Agency Comment Spec In Lab Alirio Hudson MD CHEMISTRY ORDERABLE S Performing Organization Address [facility] Co de Phone Number [facility] [place] [address] * (ABNORMAL) Basic Metabolic Panel (non-fasting) (05/13/2023 1:15 AM EDT) Glucose 107 65 - 199 mg/dL [facility] Comment:Diabetes: >=200 mg/d L plus symptoms Blood Urea Nitrogen 82(H) 8 - 18 mg/dL [facility] Creatinine 3.15(H) 0.70 - 1.20 mg/dL [facility] Comment:result rechecked-OG Sodium 132(L) 135 - 145 mmol/L [facility] Potassium 3.8 3.5 - 5.0 mmol/L [facility] Comment: Please note: ??Patients with WBC >100,000 may have falsely elevated Potassium levels. ??For accurate Potassium quantification in these patients send serum separator tube (gold top) for subsequent determinations. ??Contact the Clinical Chemistry Laboratory if there are any questions. Chloride 95(L) 98 - 107 mmol/L [facility] Carbon Dioxide 20(L) 22 - 31 mmol/L [facility] Anion Gap 17(H) 5 - 15 mmol/L [facility] Calcium 8.3(L) 8.5 - 10.5 mg/dL [facility] Est Glomerular Filtration Rate 16(L) >=60 mL/min/1. 73 m?? [facility] Comment: This patient's estimated [...] Lab Alirio Hudson MD CHEMISTRY ORDERABLE S [facility] [place] [address] * (ABNORMAL) BLOOD GAS 2 ARTERIAL (05/12/2023 3:57 PM EDT) pH, Arterial 7.39 7.35 - 7.45 [facility] PCO2, Arterial 33(L) 35 - 45 mmHg [facility] PO2, Arterial 101 85 - 104 mmHg [facility] Bicarbonate, Arterial 19.5(L) 20.0 - 26.0 mmol/L [facility] Base Excess, Arterial -5.5(L) -3.0 - 3.0 mmol/L [facility] Hgb Blood Gas 9.8(L) 11.7 - 15.5 g/dL [facility] Oxyhemoglobin, Arterial 95.2 94.0 - 97.0 % [facility] Carboxyhemoglob in, Arterial 0.2 % [facility] Comment: Nonsmokers: 0.5-1.5% COHB Smokers: Variable, but usually less than 10% Toxic: 20-30% COHB Lethal: Greater than 60% COHB Methemoglobin, Arterial 0.8 <=1.5 % [facility] Na Whole Blood 129(L) 135 - 145 mmol/L [facility] K Whole Blood 3.8 3.5 - 5.0 mmol/L [facility] Comment: Please note: Patients with WBC >100,000 may have falsely elevated Potassium levels. Contact the Clinical Chemistry Laboratory if there are any questions. ICa Whole Blood 1.05(L) 1.15 - 1.33 mmol/L [facility] Comment: Note: ??Total bilirubin higher than 20 mg/dL may lead to falsely low ionized calcium. CL Whole Blood 96(L) 98 - 107 mmol/L [facility] Gluc Whole Bld 178 65 - 199 mg/dL [facility] Comment:Diabetes: >=200 mg/d L plus symptoms. Lactate WB 1.5 0.5 - 2.2 mmol/L [facility] FIO2 Art 40 % [facility] PF Ratio Art 252 [facility] Blood 05/12/2023 3:57 PM EDT 05/12/2023 3:57 PM EDT Alirio Hudson MD POINT OF CARE TEST ORDERABLES Performing Organization Address City/State/[facility] Co de Phone Number [facility] [place] [address] * (ABNORMAL) Coox2 (05/12/2023 2:25 PM EDT) pO2, Coox 37 mmHg [facility] Hgb Blood Gas 9.5(L) 11.7 - 15.5 g/dL [facility] Oxyhemoglobin, Coox 59.9 % [facility] Carboxyhemoglo bin, Coox 0.3 % [facility] Comment: Nonsmokers: 0.5-1.5% COHB Smokers: Variable, but usually less than 10% Toxic: 20-30% COHB Lethal: Greater than 60% COHB Methemoglobin, Coox 0.7 <=1.5 % [facility] Source Coox Mixed Venous [facility] Blood 05/12/2023 2:25 PM EDT 05/12/2023 2:25 PM EDT Alirio Hudson MD POINT OF CARE TEST ORDERABLES [facility] [address] [place] [address] * (ABNORMAL) BLOOD GAS 2 ARTERIAL (05/12/2023 2:23 PM EDT) pH, Arterial 7.37 7.35 - 7.45 [facility] PCO2, Arterial 36 35 - 45 mmHg [facility] PO2, Arterial 102 85 - 104 mmHg [facility] Bicarbonate, Arterial 20.4 20.0 - 26.0 mmol/L [facility] Base Excess, Arterial -4.8(L) -3.0 - 3.0 mmol/L [facility] Hgb Blood Gas 12.7 11.7 - 15.5 g/dL [facility] Oxyhemoglobin, Arterial 95.4 94.0 - 97.0 % [facility] Carboxyhemoglob in, Arterial 0.3 % [facility] Comment: Nonsmokers: 0.5-1.5% COHB Smokers: Variable, but usually less than 10% Toxic: 20-30% COHB Lethal: Greater than 60% COHB Methemoglobin, Arterial 0.7 <=1.5 % [facility] Na Whole Blood 129(L) 135 - 145 mmol/L [facility] K Whole Blood 3.7 3.5 - 5.0 mmol/L [facility] Comment: Please note: Patients with WBC >100,000 may have falsely elevated Potassium levels. Contact the Clinical Chemistry Laboratory if there are any questions. ICa Whole Blood 1.05(L) 1.15 - 1.33 mmol/L [facility] Comment: Note: ??Total bilirubin higher than 20 mg/dL may lead to falsely low ionized calcium. CL Whole Blood 95(L) 98 - 107 mmol/L [facility] Gluc Whole Bld 168 65 - 199 mg/dL [facility] Comment:Diabetes: >=200 mg/d L plus symptoms. Lactate WB 1.8 0.5 - 2.2 mmol/L [facility] FIO2 Art 40 % [facility] PF Ratio Art 255 [facility] Blood 05/12/2023 2:23 PM EDT 05/12/2023 2:23 PM EDT Alirio Hudson MD POINT OF CARE TEST ORDERABLES [facility] [place] [address] * (ABNORMAL) Troponin (05/12/2023 2:05 PM EDT) Troponin-T, High Sensitivity 1,022(H) <=14 ng/L [facility] Comment: This patient's troponin [...] value can be found in the [facility] Laboratory Test Catalog Troponin - [facility] Laboratory Test Catalog Reference: Fourth [place] Definition of Myocardial Infarction. Journal of the [employer] 2018;72:5432-0866 Blood 05/12/2023 2:05 PM EDT 05/12/2023 2:14 PM EDT Narrative Resulting Agency Comment Spec In Lab Alirio Hudson MD CHEMISTRY ORDERABLE S Performing Organization Address City/[facility]/ZIP Co de Phone Number [facility] [place] [address] * (ABNORMAL) Hemoglobin (05/12/2023 2:05 PM EDT) Hemoglobin 8.5(L) 11.7 - 15.5 g/dL [facility] Blood 05/12/2023 2:05 PM EDT 05/12/2023 2:14 PM EDT Narrative Resulting Agency Comment Spec In Lab Alirio Hudson MD HEMATOLOGY ORDERABL ES Performing Organization Address [facility] [facility] Co de Phone Number [facility] [place] [address] * Potassium (05/12/2023 2:05 PM EDT) Potassium 3.9 3.5 - 5.0 mmol/L [facility] Comment: Please note: ??Patients [...] MD CHEMISTRY ORDERABLE S Performing Organization Address [facility] Co de Phone Number [facility] [place] [address] * (ABNORMAL) BLOOD GAS 2 ARTERIAL (05/12/2023 11:05 AM EDT) pH, Arterial 7.34(L) 7.35 - 7.45 [facility] PCO2, Arterial 42 35 - 45 mmHg [facility] PO2, Arterial 73(L) 85 - 104 mmHg [facility] Bicarbonate, Arterial 22.1 20.0 - 26.0 mmol/L [facility] Base Excess, Arterial -3.6(L) -3.0 - 3.0 mmol/L [facility] Hgb Blood Gas 9.3(L) 11.7 - 15.5 g/dL [facility] Oxyhemoglobin, Arterial 89.3(L) 94.0 - 97.0 % [facility] Carboxyhemoglob in, Arterial 0.2 % [facility] Comment: Nonsmokers: 0.5-1.5% COHB Smokers: Variable, but usually less than 10% Toxic: 20-30% COHB Lethal: Greater than 60% COHB Methemoglobin, Arterial 0.9 <=1.5 % [facility] Na Whole Blood 131(L) 135 - 145 mmol/L [facility] K Whole Blood 3.8 3.5 - 5.0 mmol/L [facility] Comment: Please note: Patients with WBC >100,000 may have falsely elevated Potassium levels. Contact the Clinical Chemistry Laboratory if there are any questions. ICa Whole Blood 1.04(L) 1.15 - 1.33 mmol/L [facility] Comment: Note: ??Total bilirubin higher than 20 mg/dL may lead to falsely low ionized calcium. CL Whole Blood 96(L) 98 - 107 mmol/L [facility] Gluc Whole Bld 152 65 - 199 mg/dL [facility] Comment:Diabetes: >=200 mg/d L plus symptoms. Lactate WB 2.8(H) 0.5 - 2.2 mmol/L [facility] FIO2 Art 40 % [facility] PF Ratio Art 182 [facility] Blood 05/12/2023 11:0 5 AM EDT 05/12/2023 11:05 AM EDT Alirio Hudson MD POINT OF CARE TEST ORDERABLES [facility] [place] [address] * (ABNORMAL) BLOOD GAS 2 ARTERIAL (05/12/2023 10:14 AM EDT) pH, Arterial 7.18(Criti gabrielle) 7.35 - 7.45 [facility] Comment:Noted by instrument room technician. PCO2, Arterial 45 35 - 45 mmHg [facility] PO2, Arterial 186(H) 85 - 104 mmHg [facility] Bicarbonate, Arterial 16.2(L) 20.0 - 26.0 mmol/L [facility] Base Excess, Arterial -12.2(L) -3.0 - 3.0 mmol/L [facility] Hgb Blood Gas 10.0(L) 11.7 - 15.5 g/dL [facility] Oxyhemoglobin, Arterial 97.0 94.0 - 97.0 % [facility] Carboxyhemoglob in, Arterial 0.2 % [facility] Comment: Nonsmokers: 0.5-1.5% COHB Smokers: Variable, but usually less than 10% Toxic: 20-30% COHB Lethal: Greater than 60% COHB Methemoglobin, Arterial 0.9 <=1.5 % [facility] Na Whole Blood 129(L) 135 - 145 mmol/L [facility] K Whole Blood 3.6 3.5 - 5.0 mmol/L [facility] Comment: Please note: Patients with WBC >100,000 may have falsely elevated Potassium levels. Contact the Clinical Chemistry Laboratory if there are any questions. ICa Whole Blood 1.10(L) 1.15 - 1.33 mmol/L [facility] Comment: Note: ??Total bilirubin higher than 20 mg/dL may lead to falsely low ionized calcium. CL Whole Blood 97(L) 98 - 107 mmol/L [facility] Gluc Whole Bld 161 65 - 199 mg/dL [facility] Comment:Diabetes: >=200 mg/d L plus symptoms. Lactate WB 3.3(H) 0.5 - 2.2 mmol/L [facility] FIO2 Art 100 % [facility] PF Ratio Art 186 [facility] Blood 05/12/2023 10:1 4 AM EDT 05/12/2023 10:14 AM EDT Alirio Hudson MD POINT OF CARE TEST ORDERABLES [facility] [place] [address] * EKG 12 Lead (05/12/2023 10:10 AM EDT) Ventricular rate 116 BPM MUSE SYSTEM Atrial Rate 116 BPM MUSE SYSTEM P-R Interval 158 ms MUSE SYSTEM QRS Duration 114 ms MUSE SYSTEM Q-T Interval 348 ms MUSE SYSTEM QTC Calculated (Bezet) 483 ms MUSE SYSTEM Calculated P [place] 37 degrees MUSE SYSTEM Calculated R [place] 31 degrees MUSE SYSTEM Calculated T [place] -138 degrees MUSE SYSTEM INTERPRETATION Sinus tachycardia [...] interpretation Confirmed by fellow MD Anuja, Jim ([id number]) on 05/12/2023 1:04:20 PM Confirmed by MD Mono, Eleni ([id number]) on 05/12/2023 9:28:34 PM MUSE SYSTEM 05/12/2023 [...] who have questions please contact the health acute care occupational therapist that requested your imaging first. ? Electronically signed by: Chyna Johnson MD, [facility] ??([phone]), at 05/12/2023 10:08 AM Narrative 05/12/2023 10:08 AM EDT EXAMINATION: XR CHEST ONE VIEW CLINICAL HISTORY: Post TAVR TECHNIQUE: 1 view of the chest COMPARISON: Chest radiograph from earlier today FINDINGS: Interval placement of endotracheal tube with tip terminating 2 cm above the shira. Interval placement of enteric tube projecting along the expected course of the esophagus and outside the ozavk-dt-ylrn. Interval retraction of right IJ approach pulmonary [...] expected course ofthe esophagus and outside the mefah-gb-jlhj. Interval retraction of right IJ approach pulmonary [...] patients who have questions please contactthe health acute care occupational therapist that requested your imaging first. Alirio Hudson [...] 1955 ? Height: 154 cm ? Account: [id number] Age: 67 yrs ? Weight: 75 kg [...] mL/m2. POST TAVR: Normal function of the jhhvm-pd-imnoj prosthesis. See below for hemodynamic parameters. Slight improvement in left and right ventricular systolic function. LVEF now 20-25%. No pericardial effusion. See report for additional findings. Procedure Limited - 27448. Doppler - 41682. Color Doppler - 78750. Left Ventricle Left ventricle is of normal [...] Date: 307:33 AMBP: 96/63 mmHg Patient Location: [address] : 1955 Height: 154 cm Account: [id number] Age: 67 yrs Weight: 75 kg Gender: [...] 28mL/m2. POST TAVR: Normal function of the jaypf-rv-qugul prosthesis. See belowfor hemodynamic parameters. Slight improvement in left and right ventricularsystolic function. LVEF now 20-25%. No pericardial effusion. See report for additional findings. Procedure Limited - 16870. Doppler - 47643. Color Doppler - 39719. Left Ventricle Left ventricle is of normal [...] Other Narrative 05/12/2023 2:37 PM EDT ?[facility] ? Cardiac Catheterization/Intervention Report ? Patient Name: Kirstie, Purnima M. ? Procedure Date: 05/12/2023 ? A #: [id number] ? Primary Physician: Zachary, Antelmo N ? Case #: [id number] ? File Name: [id number] ? Catheterization Order Number: [id number] ? [facility] ? Final Report [place], [place] ? Patient Name: ? Purnima M. Kirstie ? ID#: ?[id number] ? : ?1955 ? Procedure Date: ? May 12, 2023 ? Case #: ? [id number] ? Room: ? 6 ? Case Physicians: ?Antelmo Sharma M.D. ?Start: ?08:03 ?Alirio Hudson M.D. ?Admission: ??05/08/2023 ?Lynda Mcgowan M.D. ? Discharge: ??05/22/2023 ?Fellow: ? Emad Adair Tejeda ? Referring Physician: ??Mario Alberto Chin M.D. ? Procedures: ?* Coronary Angiography ?* Left Heart Catheterization ?* Coronary Stent Insertion ?* Transcatheter Aortic Valve Replacement ?* Vascular Closure Device Deployment ?* Temporary Pacemaker Insertion In Wash Worker ?* Endotracheal Intubation By Non-Cath Physician ?* [...] guide. ??A premounted 4.00 x 30 mm [place] (MINNA) was ? deployed with a maximum [...] calculated STS risk score was 30.1%. A crijw-sm-zagkp ?procedure was performed on the pre-existing bioprosthetic stented ?prosthesis. The priority of the jwxqk-sp-jibxj procedure was Elective. ?The procedure was performed [...] Lai 3 Ultra RESILIA 23 mm THV (s/c=[id number]) transcatheter ?valve was inserted using standard technique. [...] to nor was it given in the ?botany laboratory assistant. ?Recommended anti-platelet/anti-thrombotic regimen: ?Continue aspirin 81 mg daily for indefinitely. ?These recommendations are made at the time of the intervention. Patient ?and provider preferences or a changing clinical situation may require ?modification of this regimen. Consult [facility] Interventional Cardiology for ?questions. ? Conclusions: ?* [...] regimen. ? Comments: ?Successful right transfemoral TAVR Vvfey-fu-Csetn with a 23 mm Lai 3 ?THV. [...] insertion-coronary, access site angiography, ?temporary pacemaker in botany laboratory assistant, intubation-non cath physician, vascular ?closure device, transthoracic echo ??and TAVR. Dr. Alirio Hudson M.D. ?performed the left heart catheterization, access site angiography, ?temporary pacemaker in botany laboratory assistant, vascular closure device, transthoracic ?echo , TAVR and CPR during cath. Dr. Lynda Mcgowan M.D. performed the ABG, ?anesthesia and intubation-non cath physician. ? Antelmo Sharma M.D. ? Electronically Signed by: Antelmo Sharma M.D. ? Report Finalized: 05/12/2023 ??14:31 ? Report Last Ammended: 07/01/2023 ??11:30 ? Procedure Note Antelmo Sharma MD - 07/01/2023 [facility] Cardiac Catheterization/Intervention Report Patient Name: KirstiePurnima Procedure Date: 05/12/2023 A #: [id number] Primary Physician: Antelmo Sharma Case #: [id number] File Name: [id number] Catheterization Order Number: [id number] [facility] FinalReport [place], [place] Patient Name: Purnima Thacker ID#:[id number] :1955 Procedure Date: May 12, 2023 Case #: [id number] Room: 6 Case Physicians: Antelmo Sharma M.D. Start: 08:03 Alirio Hudson M.D. Admission:05/08/2023 Lynda Mcgowan M.D. Discharge:05/22/2023 Fellow: Rebekah Tejeda M.D. Referring Physician: Mario Alberto Chin M.D. Procedures: * Coronary Angiography * Left Heart Catheterization * Coronary Stent Insertion * Transcatheter Aortic Valve Replacement * Vascular Closure Device Deployment * Temporary Pacemaker Insertion In Wash Worker * Endotracheal Intubation By Non-Cath Physician * [...] A premounted 4.00 x 30 mm [place] (MINNA) was deployed with a maximum inflation [...] calculated STS risk score was 30.1%. A qyunx-jw-ugnep procedure was performed on the pre-existing bioprosthetic stented prosthesis. The priority of the ivlft-xq-umwgl procedure wasElective. The procedure was performed under Moderate sedation performed byLynda Mcgowan M.D. (see anesthesia report for additional details). Alirio Hudson M.D. participated in the case (see Cardiac Surgery reportfor additional details). The TAVR sheath was a 14 Fr Corona eSheath Introducer and theaccess site was femoral. Rapid ventricular pacing was performed. An Corona Lai 3 Ultra RESILIA 23 mm THV (s/x=[id number])transcatheter valve was inserted using standard technique. The [...] prior to nor was it given inthe botany laboratory assistant. Recommended anti-platelet/anti-thrombotic regimen: Continue aspirin 81 mg daily for indefinitely. These recommendations are made at the time of the intervention.Patient and provider preferences or a changing clinical situation mayrequire modification of this regimen. Consult [facility] Interventional Cardiologyfor questions. Conclusions: * Nonobstructive disease [...] this regimen. Comments: Successful right transfemoral TAVR Utwkh-vx-Dwxqz with a 23 mmSapien 3 THV. We [...] insertion-coronary, access site angiography, temporary pacemaker in botany laboratory assistant, intubation-non cath physician,vascular closure device, transthoracic echo and TAVR. Dr. Alirio Hudson M.D. performed the left heart catheterization, access site angiography, temporary pacemaker in botany laboratory assistant, vascular closure device,transthoracic echo , [...] pH, POC 7.20(Crit ical) 7.35 - 7.45 [facility] Comment:Critical value OKYamel C Lab. pCO2, POC 42 35 - 45 mmHg [facility] pO2, POC 260(H) 85 - 104 mmHg [facility] Base Excess, POC -11.0(L) -3.0 - 3.0 mmol/L [facility] Bicarbonate, POC 16.7(L) 20.0 - 26.0 mmol/L [facility] Sodium, POC 129(L) 135 - 145 mmol/L [facility] POC Potassium 3.8 3.5 - 5.0 mmol/L [facility] Ionized Calcium, POC 1.12(L) 1.15 - 1.33 mmol/L [facility] POC Hematocrit 23.0(L) 34.0 - 45.0 % [facility] POC Calc Hgb 7.8(L) 11.2 - 15.7 g/dL [facility] Comment:The calculation of h emoglobin from hematocrit assumes a normal MCHC. POC Bgas Loc CC Lab [facility] Blood 05/12/2023 8:50 AM EDT 05/13/2023 12:00 PM EDT Alirio Hudson MD CHEMISTRY ORDERABLE S Performing Organization Address City/State/[facility] Co de Phone Number [facility] [place] [address] * (ABNORMAL) Point of Care Blood Gas Historical (05/12/2023 8:10 AM EDT) pH, POC 7.27(Crit ical) 7.35 - 7.45 [facility] Comment:Critical value OKYamel C Lab. pCO2, POC 37 35 - 45 mmHg [facility] pO2, POC 29(Critic al) 85 - 104 mmHg [facility] Comment:Critical value OK C C Lab. Base Excess, POC -10.0(L) -3.0 - 3.0 mmol/L [facility] Bicarbonate, POC 16.7(L) 20.0 - 26.0 mmol/L [facility] Sodium, POC 123(L) 135 - 145 mmol/L [facility] POC Potassium 4.0 3.5 - 5.0 mmol/L [facility] Ionized Calcium, POC 1.12(L) 1.15 - 1.33 mmol/L [facility] POC Hematocrit 27.0(L) 34.0 - 45.0 % [facility] POC Calc Hgb 9.2(L) 11.2 - 15.7 g/dL [facility] Comment:The calculation of h emoglobin from hematocrit assumes a normal MCHC. POC Bgas Loc CC Lab [facility] Blood 05/12/2023 8:10 AM EDT 05/13/2023 12:00 PM EDT Alirio Hudson MD CHEMISTRY ORDERABLE S Performing Organization Address City/[facility]/ZIP Co de Phone Number [facility] [place] [address] * (ABNORMAL) Lactate, whole blood, send to lab ([facility]) (05/12/2023 7:00 AM EDT) Lactate WB 2.4(H) 0.5 - 2.2 mmol/L [facility] Blood 05/12/2023 7:00 AM EDT 05/12/2023 7:09 AM EDT Narrative Resulting Agency Comment Spec In Lab Radha Hollins MD CHEMISTRY ORDERABL ES Performing Organization Address [facility] Co de Phone Number [facility] [place] [address] * (ABNORMAL) Comprehensive metabolic panel (non-fasting) (05/12/2023 6:00 AM EDT) Glucose 167 65 - 199 mg/dL [facility] Comment:Diabetes: >=200 mg/d L plus symptoms Blood Urea Nitrogen 67(H) 8 - 18 mg/dL [facility] Creatinine 2.01(H) 0.70 - 1.20 mg/dL [facility] Sodium 131(L) 135 - 145 mmol/L [facility] Potassium 4.3 3.5 - 5.0 mmol/L [facility] Comment: Please note: ??Patients with WBC >100,000 may have falsely elevated Potassium levels. ??For accurate Potassium quantification in these patients send serum separator tube (gold top) for subsequent determinations. ??Contact the Clinical Chemistry Laboratory if there are any questions. Chloride 97(L) 98 - 107 mmol/L [facility] Carbon Dioxide 14(L) 22 - 31 mmol/L [facility] Anion Gap 20(H) 5 - 15 mmol/L [facility] Calcium 8.6 8.5 - 10.5 mg/dL [facility] Protein, Total 6.3 6.1 - 8.0 g/dL [facility] Albumin 3.5 3.2 - 5.2 g/dL [facility] Aspartate Aminotransferase 1,435(H) 0 - 30 unit/L [facility] Alanine Aminotransferase 1,174(H) 0 - 30 unit/L [facility] Alkaline Phosphatase 100 35 - 105 unit/L [facility] Bilirubin, Total 0.9 0.2 - 1.3 mg/dL [facility] Est Glomerular Filtration Rate 27(L) >=60 mL/min/1. 73 m?? [facility] Comment: This patient's estimated [...] Lab Radha Hollins MD CHEMISTRY ORDERABL ES [facility] [place] [address] * (ABNORMAL) Coox2 (05/12/2023 5:08 AM EDT) pO2, Coox 24 mmHg [facility] Hgb Blood Gas 10.4(L) 11.7 - 15.5 g/dL [facility] Oxyhemoglobin, Coox 30.7 % [facility] Carboxyhemoglo bin, Coox 0.3 % [facility] Comment: Nonsmokers: 0.5-1.5% COHB Smokers: Variable, but usually less than 10% Toxic: 20-30% COHB Lethal: Greater than 60% COHB Methemoglobin, Coox 0.8 <=1.5 % [facility] Source Coox Mixed Venous [facility] Blood 05/12/2023 5:08 AM EDT 05/12/2023 5:08 AM EDT Radha Hollins MD POINT OF CARE TEST ORDERABLES Performing Organization Address City/[facility] Co de Phone Number [facility] [place] [address] * (ABNORMAL) Coox2 (05/12/2023 3:21 AM EDT) pO2, Coox 25 mmHg [facility] Hgb Blood Gas 10.8(L) 11.7 - 15.5 g/dL [facility] Oxyhemoglobin, Coox 32.7 % [facility] Carboxyhemoglo bin, Coox 0.3 % [facility] Comment: Nonsmokers: 0.5-1.5% COHB Smokers: Variable, but usually less than 10% Toxic: 20-30% COHB Lethal: Greater than 60% COHB Methemoglobin, Coox 0.7 <=1.5 % [facility] Source Coox Mixed Venous [facility] Blood 05/12/2023 3:21 AM EDT 05/12/2023 3:21 AM EDT Radha Hollins MD POINT OF CARE TEST ORDERABLES Performing Organization Address City/[facility] Co de Phone Number [facility] [place] [address] * (ABNORMAL) BLOOD GAS 2 ARTERIAL (05/12/2023 3:18 AM EDT) pH, Arterial 7.34(L) 7.35 - 7.45 [facility] PCO2, Arterial 30(L) 35 - 45 mmHg [facility] PO2, Arterial 72(L) 85 - 104 mmHg [facility] Bicarbonate, Arterial 16.0(L) 20.0 - 26.0 mmol/L [facility] Base Excess, Arterial -9.8(L) -3.0 - 3.0 mmol/L [facility] Hgb Blood Gas 11.0(L) 11.7 - 15.5 g/dL [facility] Oxyhemoglobin, Arterial 89.8(L) 94.0 - 97.0 % [facility] Carboxyhemoglob in, Arterial 0.3 % [facility] Comment: Nonsmokers: 0.5-1.5% COHB Smokers: Variable, but usually less than 10% Toxic: 20-30% COHB Lethal: Greater than 60% COHB Methemoglobin, Arterial 0.7 <=1.5 % [facility] Na Whole Blood 131(L) 135 - 145 mmol/L [facility] K Whole Blood 4.2 3.5 - 5.0 mmol/L [facility] Comment: Please note: Patients with WBC >100,000 may have falsely elevated Potassium levels. Contact the Clinical Chemistry Laboratory if there are any questions. ICa Whole Blood 1.12(L) 1.15 - 1.33 mmol/L [facility] Comment: Note: ??Total bilirubin higher than 20 mg/dL may lead to falsely low ionized calcium. CL Whole Blood 100 98 - 107 mmol/L [facility] Gluc Whole Bld 160 65 - 199 mg/dL [facility] Comment:Diabetes: >=200 mg/d L plus symptoms. Lactate WB 2.7(H) 0.5 - 2.2 mmol/L [facility] Flow Art 5.0 LPM [facility] Blood 05/12/2023 3:18 AM EDT 05/12/2023 3:18 AM EDT Radha Hollins MD POINT OF CARE TEST ORDERABLES [facility] [place] [address] * (ABNORMAL) Coox2 (05/12/2023 1:14 AM EDT) pO2, Coox 28 mmHg [facility] Hgb Blood Gas 10.9(L) 11.7 - 15.5 g/dL [facility] Oxyhemoglobin, Coox 37.3 % [facility] Carboxyhemoglo bin, Coox 0.3 % [facility] Comment: Nonsmokers: 0.5-1.5% COHB Smokers: Variable, but usually less than 10% Toxic: 20-30% COHB Lethal: Greater than 60% COHB Methemoglobin, Coox 0.5 <=1.5 % [facility] Source Coox Mixed Venous [facility] Blood 05/12/2023 1:14 AM EDT 05/12/2023 1:14 AM EDT Radha Hollins MD POINT OF CARE TEST ORDERABLES [facility] [place] [address] * (ABNORMAL) BLOOD GAS 2 ARTERIAL (05/12/2023 1:06 AM EDT) pH, Arterial 7.34(L) 7.35 - 7.45 [facility] PCO2, Arterial 30(L) 35 - 45 mmHg [facility] PO2, Arterial 81(L) 85 - 104 mmHg [facility] Bicarbonate, Arterial 15.7(L) 20.0 - 26.0 mmol/L [facility] Base Excess, Arterial -10.1(L) -3.0 - 3.0 mmol/L [facility] Hgb Blood Gas 11.0(L) 11.7 - 15.5 g/dL [facility] Oxyhemoglobin, Arterial 92.3(L) 94.0 - 97.0 % [facility] Carboxyhemoglob in, Arterial 0.2 % [facility] Comment: Nonsmokers: 0.5-1.5% COHB Smokers: Variable, but usually less than 10% Toxic: 20-30% COHB Lethal: Greater than 60% COHB Methemoglobin, Arterial 0.6 <=1.5 % [facility] Na Whole Blood 131(L) 135 - 145 mmol/L [facility] K Whole Blood 4.2 3.5 - 5.0 mmol/L [facility] Comment: Please note: Patients with WBC >100,000 may have falsely elevated Potassium levels. Contact the Clinical Chemistry Laboratory if there are any questions. ICa Whole Blood 1.13(L) 1.15 - 1.33 mmol/L [facility] Comment: Note: ??Total bilirubin higher than 20 mg/dL may lead to falsely low ionized calcium. CL Whole Blood 99 98 - 107 mmol/L [facility] Gluc Whole Bld 132 65 - 199 mg/dL [facility] Comment:Diabetes: >=200 mg/d L plus symptoms. Lactate WB 2.7(H) 0.5 - 2.2 mmol/L [facility] Flow Art 5.0 LPM [facility] Blood 05/12/2023 1:06 AM EDT 05/12/2023 1:06 AM EDT Radha Hollins MD POINT OF CARE TEST ORDERABLES Performing Organization Address City/State/[facility] Co de Phone Number [facility] [place] [address] * (ABNORMAL) Differential, Automated (05/12/2023 1:05 AM EDT) Neutrophil % 83.3 % [facility] Neutrophil Absolute 7.49(H) 1.70 - 6.10 x10(3)/mc L [facility] Lymph % 7.1 % [facility] Lymphocytes Abs 0.6(L) 0.9 - 3.2 x10(3)/mc L [facility] Monocyte % 8.9 % [facility] Monocyte Abs 0.8 0.3 - 0.9 x10(3)/mc L [facility] Eos % 0.0 % [facility] Eosinophils Abs 0.0 0.0 - 0.4 x10(3)/mc L [facility] Basophil % 0.1 % [facility] Baso Absolute 0.0 0.0 - 0.1 x10(3)/mc L [facility] Immature Gran % 0.60 % [facility] Comment: Immature granulocytes(IG's)percentage and absolute count will include metamyelocytes, myelocytes, and promyelocytes. Blood smears from CBCs yielding IG's will be scanned manually for concordance. If this scan disagrees with the automated IG or if promyelocytes are noted, a manual differential will be performed. Immature Gran Absolute 0.05(H) 0.00 - 0.04 x10(3)/mc L [facility] Blood 05/12/2023 1:05 AM EDT 05/12/2023 1:15 AM EDT Narrative Resulting Agency Comment Spec In Lab Gianni Fletcher MD HEMATOLOGY ORDERABLE S [facility] [place] [address] * (ABNORMAL) Hemogram (05/12/2023 1:05 AM EDT) White Blood Cell 9.0 4.0 - 9.5 x10(3)/mc L [facility] Red Blood Cell 3.01(L) 4.00 - 5.21 x10(6)/ L [facility] Hemoglobin 9.8(L) 11.7 - 15.5 g/dL [facility] Hematocrit 28.7(L) 35.7 - 45.8 % [facility] Mean Cell Volume 95.3(H) 82.6 - 94.4 fL [facility] Mean Cell Hemoglobin 32.6(H) 27.1 - 32.0 pg [facility] Mean Cell Hemoglobin Concentration 34.1 31.7 - 35.0 g/dL [facility] Platelet 186 145 - 357 x10(3)/mc L [facility] RDW Standard Deviation 43.7 37.0 - 46.0 fL [facility] RDW coefficient of variation 12.7 11.5 - 14.1 % [facility] Mean Platelet Volume 10.3 7.6 - 12.9 fL [facility] NRBC% auto 0.0 % [facility] NRBC Absolute 0.000 0.000 - 0.000 x10(3)/mc L [facility] Blood 05/12/2023 1:05 AM EDT 05/12/2023 1:15 AM EDT Narrative Resulting Agency Comment Spec In Lab Gianni Fletcher MD HEMATOLOGY ORDERABLE S [facility] [place] [address] * (ABNORMAL) Comprehensive metabolic panel (non-fasting) (05/12/2023 1:05 AM EDT) Glucose 141 65 - 199 mg/dL [facility] Comment:Diabetes: >=200 mg/d L plus symptoms Blood Urea Nitrogen 63(H) 8 - 18 mg/dL [facility] Creatinine 1.86(H) 0.70 - 1.20 mg/dL [facility] Sodium 131(L) 135 - 145 mmol/L [facility] Potassium 4.4 3.5 - 5.0 mmol/L [facility] Comment: Please note: ??Patients with WBC >100,000 may have falsely elevated Potassium levels. ??For accurate Potassium quantification in these patients send serum separator tube (gold top) for subsequent determinations. ??Contact the Clinical Chemistry Laboratory if there are any questions. Chloride 96(L) 98 - 107 mmol/L [facility] Carbon Dioxide 14(L) 22 - 31 mmol/L [facility] Anion Gap 21(H) 5 - 15 mmol/L [facility] Calcium 9.0 8.5 - 10.5 mg/dL [facility] Protein, Total 6.6 6.1 - 8.0 g/dL [facility] Albumin 3.9 3.2 - 5.2 g/dL [facility] Aspartate Aminotransferase 1,227(H) 0 - 30 unit/L [facility] Alanine Aminotransferase 1,097(H) 0 - 30 unit/L [facility] Alkaline Phosphatase 108(H) 35 - 105 unit/L [facility] Bilirubin, Total 1.0 0.2 - 1.3 mg/dL [facility] Est Glomerular Filtration Rate 29(L) >=60 mL/min/1. 73 m?? [facility] Comment: This patient's estimated [...] Lab Radha Hollins MD [place] [address] * XR Chest One View (05/12/2023 1:00 [...] who have questions please contact the health acute care occupational therapist that requested your imaging first. ? Narrative [...] patients who have questions please contactthe health acute care occupational therapist that requested your imaging first. Radha Hollins MD IMG DX ORDERABLES * (ABNORMAL) Coox2 (05/12/2023 12:30 AM EDT) pO2, Coox 22 mmHg [facility] Hgb Blood Gas 10.9(L) 11.7 - 15.5 g/dL [facility] Oxyhemoglobin, Coox 25.1 % [facility] Carboxyhemoglo bin, Coox 0.3 % [facility] Comment: Nonsmokers: 0.5-1.5% COHB Smokers: Variable, but usually less than 10% Toxic: 20-30% COHB Lethal: Greater than 60% COHB Methemoglobin, Coox 1.4 <=1.5 % [facility] Source Coox Mixed Venous [facility] Blood 05/12/2023 12:3 0 AM EDT 05/12/2023 12:30 AM EDT Radha Hollins MD POINT OF CARE TEST ORDERABLES [facility] [place] [address] * XR Chest One View (05/11/2023 11:45 [...] who have questions please contact the health acute care occupational therapist that requested your imaging first. ? Narrative [...] patients who have questions please contactthe health acute care occupational therapist that requested your imaging first. aRdha Hollins MD IMG DX ORDERABLES * (ABNORMAL) Lactate, whole blood, send to lab ([facility]) (05/11/2023 7:40 PM EDT) Lactate WB 4.8(Critic al) 0.5 - 2.2 mmol/L [facility] Comment:Called by: IMM, Read back by: Magdalena Baires, Date/Time:05/11/23 19:54. Blood 05/11/2023 7:40 PM EDT 05/11/2023 7:49 PM EDT Narrative Resulting Agency Comment Spec In Lab Radha Hollins MD CHEMISTRY ORDERABL ES Performing Organization Address City/[facility]/ZIP Co de Phone Number [facility] [place] [address] * Urine culture (05/11/2023 7:22 PM EDT) Pathologist [facility] Urine Culture 50,000-99,000 cfu/ml Normal mucosal herman Susceptibilit y testing not routinely performed for Coagulase Negative Staphylococcu s species and other Gram Positive organisms from urine. [facility] Clean Catch Urine 05/11/2023 7:22 PM EDT 05/11/2023 8:50 PM EDT Narrative Resulting Agency Comment Spec In Lab Brody Kaplan APRN MICROBIOLOGY - GENE RAL ORDERABLES Performing Organization Address [facility]/ZIP Co de Phone Number [facility] [place] [address] * (ABNORMAL) Urinalysis Microscopic Exam (05/11/2023 7:22 PM EDT) RBC, Urine 2 0 - 4 /HPF [facility] WBC, Urine >100(H) 0 - 5 /HPF [facility] Bacteria, Urine Occasional (A) None /HPF [facility] Squamous Epithelial Cells Raw Data, Urine 5(H) <=4 /HPF [facility] Hyaline Casts, Urine 3(H) 0 - 2 /LPF [facility] Clean Catch Urine 05/11/2023 7:22 PM EDT 05/11/2023 7:31 PM EDT Narrative Resulting Agency Comment Spec In Lab Brody Kaplan HEAD TENNIS PROFESSIONAL URINE ORDERABLES [facility] [place] [address] * (ABNORMAL) Urinalysis with reflex Culture (05/11/2023 7:22 PM EDT) Glucose, Urine Dipstick Negative Negative mg/dL [facility] Protein, Urine Dipstick Trace(A) Negative mg/dL [facility] Bilirubin, Urine Dipstick Negative Negative mg/dL [facility] Comment: Clinical correlation required for positive Urine Bilirubin results as false positive may occur with some drugs and drug related products. If a false positive is suspected a serum total bilirubin should be considered if clinically indicated. Urobilinogen, Urine Dipstick Normal Normal mg/dL [facility] pH, Urn (dipstick) 5.0 5.0 - 8.0 [facility] Blood, Urine Dipstick Trace(A) Negative mg/dL [facility] Ketone, Urine Dipstick Negative Negative mg/dL [facility] Nitrite, Urine Dipstick Negative Negative [facility] Leukocytes, Urine Dipstick Moderate(A) Negative mcL [facility] Appearance, Urine Dipstick Cloudy(A) Clear [facility] Specific [place] Urine Automated >=1.030(A) 1.005 - 1.030 [facility] Color, Urine Dipstick Yellow Yellow [facility] Reflex to Culture Yes [facility] Clean Catch Urine 05/11/2023 7:22 PM EDT 05/11/2023 7:31 PM EDT Narrative Resulting Agency Comment Spec In Lab Brody Kaplan HEAD TENNIS PROFESSIONAL URINE ORDERABLES [facility] [place] [address] * (ABNORMAL) pro-Brain Natriuretic Peptide (05/11/2023 7:11 PM EDT) NT-proBNP >35,000(H) <=124 pg/mL [facility] Blood 05/11/2023 7:11 PM EDT 05/11/2023 7:26 PM EDT Narrative Resulting Agency Comment Spec In Lab Radha Hollins MD CHEMISTRY ORDERABL ES Performing Organization Address City/[facility]/ZIP Co de Phone Number [facility] [place] [address] * (ABNORMAL) Lactate, whole blood, send to lab ([facility]) (05/11/2023 2:47 PM EDT) Lactate WB 2.9(H) 0.5 - 2.2 mmol/L [facility] Blood 05/11/2023 2:47 PM EDT 05/11/2023 2:53 PM EDT Narrative Resulting Agency Comment Spec In Lab Juan Luis Gonzalez MD CHEMISTRY ORDERABLES Performing Organization Address [facility] Co de Phone Number [facility] [place] [address] * (ABNORMAL) CT Angiogram Abdomen & Pelvis [...] who have questions please contact the health acute care occupational therapist that requested your imaging first. ? Narrative [...] who have questions please contact the health acute care occupational therapist that requested your imaging first. ? Electronically signed by: Cullen Narayanan MD, [facility] ([phone]), at 05/11/2023 4:37 PM Narrative 05/11/2023 4:37 [...] 610 mm2 Circumference: 88 mm Calcification: Mild Ehdryll-rk-ghbuwyps height: Left: 6.2 mm Right: 5.8 mm THORACIC AORTA Description: Normal course and caliber. ??Mild diffuse atherosclerotic changes. No acute aortopathy noted. [employer] Manager dimensions: Aortic root: 27.6 mm Max ascending aorta: 30.5 mm x 27.7 mm Suggested fluoroscopic angulation based on line extending through the nadirs of the three sinuses of Valsalva, set equidistant: ?? CENTRAL AFRICAN ??9 degrees; cranial 7 degrees MITRAL: Mitral [...] 610 mm2 Circumference: 88 mm Calcification: Mild Oyccwdl-oo-cfhykqad height: Left: 6.2 mm Right: 5.8 mm THORACIC AORTA Description: Normal course and caliber. Mild diffuse atheroscleroticchanges. No acute aortopathy noted. [employer] Manager dimensions: Aortic root: 27.6 mm Max ascending aorta: 30.5 mm x 27.7 mm Suggested fluoroscopic angulation based on line extending through thenadirs of the three sinuses of Valsalva, set equidistant: CENTRAL AFRICAN 9 degrees; cranial 7 degrees MITRAL: Mitral [...] patients who have questions please contactthe health acute care occupational therapist that requested your imaging first. Electronically signed by: Cullen Narayanan MD, [facility]([phone]), at 05/11/2023 4:37 PM Antelmo Sharma MD IMG CT ORDERABLES * (ABNORMAL) Lactate, whole blood, send to lab ([facility]) (05/11/2023 9:29 AM EDT) [facility] Lactate WB 3.1(H) 0.5 - 2.2 mmol/L [facility] Blood 05/11/2023 9:29 AM EDT 05/11/2023 9:38 AM EDT Narrative Resulting Agency Comment Spec In Lab Juan Luis Gonzalez MD CHEMISTRY ORDERABLES [facility] [place] [address] * (ABNORMAL) Differential, Automated (05/11/2023 4:42 AM EDT) Pathologist [facility] Neutrophil % 78.1 % [facility] Neutrophil Absolute 5.46 1.70 - 6.10 x10(3)/mc L [facility] Lymph % 10.6 % [facility] Lymphocytes Abs 0.7(L) 0.9 - 3.2 x10(3)/mc L [facility] Monocyte % 9.6 % [facility] Monocyte Abs 0.7 0.3 - 0.9 x10(3)/mc L [facility] Eos % 0.0 % [facility] Eosinophils Abs 0.0 0.0 - 0.4 x10(3)/mc L [facility] Basophil % 0.4 % [facility] Baso Absolute 0.0 0.0 - 0.1 x10(3)/mc L [facility] Immature Gran % 1.30 % [facility] Comment: Immature granulocytes(IG's)percentage and absolute count will include metamyelocytes, myelocytes, and promyelocytes. Blood smears from CBCs yielding IG's will be scanned manually for concordance. If this scan disagrees with the automated IG or if promyelocytes are noted, a manual differential will be performed. Immature Gran Absolute 0.09(H) 0.00 - 0.04 x10(3)/ L [facility] Blood 05/11/2023 4:42 AM EDT 05/11/2023 4:49 AM EDT Narrative Resulting Agency Comment Spec In Lab Klaudia Reid MD HEMATOLOGY OR DERABLES Performing Organization Address City/State/[facility] Co de Phone Number [facility] [place] [address] * (ABNORMAL) Hemogram (05/11/2023 4:42 AM EDT) White Blood Cell 7.0 4.0 - 9.5 x10(3)/mc L [facility] Red Blood Cell 3.44(L) 4.00 - 5.21 x10(6)/mc L [facility] Hemoglobin 11.1(L) 11.7 - 15.5 g/dL [facility] Hematocrit 32.7(L) 35.7 - 45.8 % [facility] Mean Cell Volume 95.1(H) 82.6 - 94.4 fL [facility] Mean Cell Hemoglobin 32.3(H) 27.1 - 32.0 pg [facility] Mean Cell Hemoglobin Concentration 33.9 31.7 - 35.0 g/dL [facility] Platelet 165 145 - 357 x10(3)/mc L [facility] RDW Standard Deviation 43.1 37.0 - 46.0 fL [facility] RDW coefficient of variation 12.7 11.5 - 14.1 % [facility] Mean Platelet Volume 10.1 7.6 - 12.9 fL [facility] NRBC% auto 0.0 % [facility] NRBC Absolute 0.000 0.000 - 0.000 x10(3)/mc L [facility] Blood 05/11/2023 4:42 AM EDT 05/11/2023 4:49 AM EDT Narrative Resulting Agency Comment Spec In Lab Klaudia Reid MD HEMATOLOGY OR DERABLES Performing Organization Address [facility] Co de Phone Number [facility] [place] [address] * Heparin (unfractionated) Level (05/11/2023 4:42 AM EDT) UF Heparin 0.46 IU/mL [facility] Comment: Heparin [...] MD HEMATOLOGY ORDERAB LES Performing Organization Address [facility] Co de Phone Number [facility] [place] [address] * (ABNORMAL) Comprehensive metabolic panel (non-fasting) (05/11/2023 4:42 AM EDT) Glucose 143 65 - 199 mg/dL [facility] Comment:Diabetes: >=200 mg/d L plus symptoms Blood Urea Nitrogen 42(H) 8 - 18 mg/dL [facility] Creatinine 1.24(H) 0.70 - 1.20 mg/dL [facility] Sodium 134(L) 135 - 145 mmol/L [facility] Potassium 4.6 3.5 - 5.0 mmol/L [facility] Comment: Please note: ??Patients with WBC >100,000 may have falsely elevated Potassium levels. ??For accurate Potassium quantification in these patients send serum separator tube (gold top) for subsequent determinations. ??Contact the Clinical Chemistry Laboratory if there are any questions. Chloride 99 98 - 107 mmol/L [facility] Carbon Dioxide 14(L) 22 - 31 mmol/L [facility] Anion Gap 21(H) 5 - 15 mmol/L [facility] Calcium 9.6 8.5 - 10.5 mg/dL [facility] Protein, Total 7.2 6.1 - 8.0 g/dL [facility] Albumin 3.7 3.2 - 5.2 g/dL [facility] Aspartate Aminotransferase 144(H) 0 - 30 unit/L [facility] Comment:result rechecked-ssc Alanine Aminotransferase 130(H) 0 - 30 unit/L [facility] Comment:result rechecked-ssc Alkaline Phosphatase 72 35 - 105 unit/L [facility] Bilirubin, Total 0.8 0.2 - 1.3 mg/dL [facility] Est Glomerular Filtration Rate 48(L) >=60 mL/min/1. 73 m?? [facility] Comment: This patient's estimated [...] [facility]ZIP Co de Phone Number [facility] [place] [address] * EKG 12 Lead (05/10/2023 1:16 PM EDT) Ventricular rate 118 BPM MUSE SYSTEM Atrial Rate 118 BPM MUSE SYSTEM P-R Interval 152 ms MUSE SYSTEM QRS Duration 104 ms MUSE SYSTEM Q-T Interval 316 ms MUSE SYSTEM QTC Calculated (Bezet) 442 ms MUSE SYSTEM Calculated [place] 29 degrees MUSE SYSTEM Calculated [place] 18 degrees MUSE SYSTEM Calculated [place] -173 degrees MUSE SYSTEM INTERPRETATION Sinus tachycardia Minimal voltage criteria for LVH, may be normal variant ( [place] product ) Septal infarct , age undetermined ST & T wave abnormality, consider lateral ischemia Abnormal ECG When compared with ECG of 10-MAY-2023 07:59, Fusion complexes are no longer Present Premature ventricular complexes are no longer Present ST no longer depressed in Anterior leads Confirmed by MD Villareal Danette ([id number]) on 05/10/2023 8:47:46 PM MUSE SYSTEM 05/10/2023 1:16 PM EDT 05/10/2023 8:47 PM EDT Juan Luis Gonzalez MD ECG ORDERABLES Performing Organization Address [facility] Co de Phone Number MUSE SYSTEM * Lactate, whole blood, send to lab ([facility]) (05/10/2023 11:52 AM EDT) Lactate WB 1.8 0.5 - 2.2 mmol/L [facility] Blood 05/10/2023 11:5 2 AM EDT 05/10/2023 12:13 PM EDT Narrative Resulting Agency Comment Spec In Lab Juan Luis Gonzalez MD CHEMISTRY ORDERABLES Performing Organization Address City/[facility]/ZIP Co de Phone Number [facility] [place] [address] * XR Chest One View (05/10/2023 11:16 [...] who have questions please contact the health acute care occupational therapist that requested your imaging first. ? Electronically signed by: ALIX RUVALCABA MD, [facility] ([phone]), at 05/10/2023 1:25 PM Narrative 05/10/2023 1:25 [...] patients who have questions please contactthe health acute care occupational therapist that requested your imaging first. Electronically signed by: ALIX RUVALCABA MD, [facility]([phone]), at 05/10/2023 1:25 PM Juan Luis Gonzalez MD IMG DX ORDERABLES * EKG 12 Lead (05/10/2023 7:59 AM EDT) Pathologist [facility] Ventricular rate 115 BPM MUSE SYSTEM Atrial Rate 115 BPM MUSE SYSTEM P-R Interval 142 ms MUSE SYSTEM QRS Duration 102 ms MUSE SYSTEM Q-T Interval 322 ms MUSE SYSTEM QTC Calculated (Bezet) 445 ms MUSE SYSTEM Calculated [place] 36 degrees MUSE SYSTEM Calculated [place] 28 degrees MUSE SYSTEM Calculated [place] -119 degrees MUSE SYSTEM INTERPRETATION Sinus tachycardia with frequent Premature ventricular complexes and Fusion complexes ST & T wave abnormality, consider lateral ischemia Abnormal ECG When compared with ECG of 08-MAY-2023 15:51, No significant change was found I personally reviewed the tracing and edited the fellows interpretation Confirmed by fellow MD [facility] on 05/11/2023 6:19:54 AM Confirmed by MD Tram, Chel ([id number]) on 05/11/2023 3:18:56 PM MUSE SYSTEM 05/10/2023 7:59 AM EDT 05/11/2023 3:18 PM EDT Radha Hollins MD ECG ORDERABLES MUSE SYSTEM * (ABNORMAL) Differential, Automated (05/10/2023 2:28 AM EDT) Neutrophil % 77.1 % [facility] Neutrophil Absolute 4.01 1.70 - 6.10 x10(3)/mc L [facility] Lymph % 14.0 % [facility] Lymphocytes Abs 0.7(L) 0.9 - 3.2 x10(3)/ L [facility] Monocyte % 7.7 % [facility] Monocyte Abs 0.4 0.3 - 0.9 x10(3)/[facility] Eos % 0.4 % [facility] Eosinophils Abs 0.0 0.0 - 0.4 x10(3)/[facility] Basophil % 0.4 % [facility] Baso Absolute 0.0 0.0 - 0.1 x10(3)/[facility] Immature Gran % 0.40 % [facility] Comment: Immature granulocytes(IG's)percentage and absolute count will include metamyelocytes, myelocytes, and promyelocytes. Blood smears from CBCs yielding IG's will be scanned manually for concordance. If this scan disagrees with the automated IG or if promyelocytes are noted, a manual differential will be performed. Immature Gran Absolute 0.02 0.00 - 0.04 x10(3)/[facility] Blood 05/10/2023 2:28 AM EDT 05/10/2023 2:57 AM EDT Narrative Resulting Agency Comment Spec In Lab Klaudia Reid MD HEMATOLOGY OR DERABLES Performing Organization Address City/State/[facility] Co de Phone Number [facility] [place] [address] * (ABNORMAL) Hemogram (05/10/2023 2:28 AM EDT) White Blood Cell 5.2 4.0 - 9.5 x10(3)/[facility] Red Blood Cell 3.11(L) 4.00 - 5.21 x10(6)/[facility] Hemoglobin 10.2(L) 11.7 - 15.5 g/dL [facility] Hematocrit 30.2(L) 35.7 - 45.8 % [facility] Mean Cell Volume 97.1(H) 82.6 - 94.4 fL [facility] Mean Cell Hemoglobin 32.8(H) 27.1 - 32.0 pg [facility] Mean Cell Hemoglobin Concentration 33.8 31.7 - 35.0 g/dL [facility] Platelet 151 145 - 357 x10(3)/mc L [facility] RDW Standard Deviation 44.9 37.0 - 46.0 fL [facility] RDW coefficient of variation 12.8 11.5 - 14.1 % [facility] Mean Platelet Volume 9.8 7.6 - 12.9 fL [facility] NRBC% auto 0.0 % [facility] NRBC Absolute 0.000 0.000 - 0.000 x10(3)/mc L [facility] Blood 05/10/2023 2:28 AM EDT 05/10/2023 2:57 AM EDT Narrative Resulting Agency Comment Spec In Lab Klaudia Reid MD HEMATOLOGY OR DERABLES [facility] [place] [address] * (ABNORMAL) Comprehensive metabolic panel (non-fasting) (05/10/2023 2:28 AM EDT) Pathologist [facility] Glucose 100 65 - 199 mg/dL [facility] Comment:Diabetes: >=200 mg/d L plus symptoms Blood Urea Nitrogen 30(H) 8 - 18 mg/dL [facility] Creatinine 0.90 0.70 - 1.20 mg/dL [facility] Sodium 134(L) 135 - 145 mmol/L [facility] Potassium 4.1 3.5 - 5.0 mmol/L [facility] Comment: Please note: ??Patients with WBC >100,000 may have falsely elevated Potassium levels. ??For accurate Potassium quantification in these patients send serum separator tube (gold top) for subsequent determinations. ??Contact the Clinical Chemistry Laboratory if there are any questions. Chloride 102 98 - 107 mmol/L [facility] Carbon Dioxide 20(L) 22 - 31 mmol/L [facility] Anion Gap 12 5 - 15 mmol/L [facility] Calcium 9.3 8.5 - 10.5 mg/dL [facility] Protein, Total 6.4 6.1 - 8.0 g/dL [facility] Albumin 3.7 3.2 - 5.2 g/dL [facility] Aspartate Aminotransferase 24 0 - 30 unit/L [facility] Alanine Aminotransferase 14 0 - 30 unit/L [facility] Alkaline Phosphatase 70 35 - 105 unit/L [facility] Bilirubin, Total 0.5 0.2 - 1.3 mg/dL [facility] Est Glomerular Filtration Rate 70 >=60 mL/min/1. 73 m?? [facility] Comment: This patient's estimated [...] Lab Radha Hollins MD CHEMISTRY ORDERABL ES [facility] [place] [address] * Heparin (unfractionated) Level (05/10/2023 2:28 AM EDT) UF Heparin 0.37 IU/mL [facility] H[facility] ITAL LABORATORY Comment: Heparin (anti-Xa) [...] Lab Radha Hollins MD [place] [address] * (ABNORMAL) Differential, Automated (05/09/2023 4:00 AM EDT) Neutrophil % 81.7 % [facility] Neutrophil Absolute 5.26 1.70 - 6.10 x10(3)/mc L [facility] Lymph % 10.7 % [facility] Lymphocytes Abs 0.7(L) 0.9 - 3.2 x10(3)/mc L [facility] Monocyte % 6.5 % [facility] Monocyte Abs 0.4 0.3 - 0.9 x10(3)/mc L [facility] Eos % 0.5 % [facility] Eosinophils Abs 0.0 0.0 - 0.4 x10(3)/mc L [facility] Basophil % 0.3 % [facility] Baso Absolute 0.0 0.0 - 0.1 x10(3)/mc L [facility] Immature Gran % 0.30 % [facility] Comment: Immature granulocytes(IG's)percentage and absolute count will include metamyelocytes, myelocytes, and promyelocytes. Blood smears from CBCs yielding IG's will be scanned manually for concordance. If this scan disagrees with the automated IG or if promyelocytes are noted, a manual differential will be performed. Immature Gran Absolute 0.02 0.00 - 0.04 x10(3)/mc L [facility] Blood 05/09/2023 4:00 AM EDT 05/09/2023 4:19 AM EDT Narrative Resulting Agency Comment Spec In Lab Klaudia Reid MD HEMATOLOGY OR DERABLES Performing Organization Address City/[facility]/[place] [address] * (ABNORMAL) Hemogram (05/09/2023 4:00 AM EDT) White Blood Cell 6.4 4.0 - 9.5 x10(3)/mc L [facility] Red Blood Cell 3.15(L) 4.00 - 5.21 x10(6)/mc L [facility] Hemoglobin 10.2(L) 11.7 - 15.5 g/dL [facility] Hematocrit 30.3(L) 35.7 - 45.8 % [facility] Mean Cell Volume 96.2(H) 82.6 - 94.4 fL [facility] Mean Cell Hemoglobin 32.4(H) 27.1 - 32.0 pg [facility] Mean Cell Hemoglobin Concentration 33.7 31.7 - 35.0 g/dL [facility] Platelet 151 145 - 357 x10(3)/mc L [facility] RDW Standard Deviation 44.7 37.0 - 46.0 fL [facility] RDW coefficient of variation 12.8 11.5 - 14.1 % [facility] Mean Platelet Volume 9.4 7.6 - 12.9 fL [facility] NRBC% auto 0.0 % [facility] NRBC Absolute 0.000 0.000 - 0.000 x10(3)/ L [facility] Blood 05/09/2023 4:00 AM EDT 05/09/2023 4:19 AM EDT Narrative Resulting Agency Comment Spec In Lab Klaudia Reid MD HEMATOLOGY OR DERABLES Performing Organization Address City/State/[facility] Co de Phone Number [facility] [place] [address] * Heparin (unfractionated) Level (05/09/2023 4:00 AM EDT) UF Heparin 0.47 IU/mL [facility] IT[facility] Comment: Heparin (anti-Xa) levels [...] Lab Radha Hollins MD HEMATOLOGY ORDERAB LES [facility] [address] [place] [address] * (ABNORMAL) Comprehensive metabolic panel (non-fasting) (05/09/2023 4:00 AM EDT) Glucose 108 65 - 199 mg/dL [facility] Comment:Diabetes: >=200 mg/d L plus symptoms Blood Urea Nitrogen 31(H) 8 - 18 mg/dL [facility] Creatinine 1.03 0.70 - 1.20 mg/dL [facility] Sodium 137 135 - 145 mmol/L [facility] Potassium 4.4 3.5 - 5.0 mmol/L [facility] Comment: Please note: ??Patients with WBC >100,000 may have falsely elevated Potassium levels. ??For accurate Potassium quantification in these patients send serum separator tube (gold top) for subsequent determinations. ??Contact the Clinical Chemistry Laboratory if there are any questions. Chloride 102 98 - 107 mmol/L [facility] Carbon Dioxide 20(L) 22 - 31 mmol/L [facility] Anion Gap 15 5 - 15 mmol/L [facility] Calcium 9.3 8.5 - 10.5 mg/dL [facility] Protein, Total 6.6 6.1 - 8.0 g/dL [facility] Albumin 3.8 3.2 - 5.2 g/dL [facility] Aspartate Aminotransferase 32(H) 0 - 30 unit/L [facility] Alanine Aminotransferase 18 0 - 30 unit/L [facility] Alkaline Phosphatase 78 35 - 105 unit/L [facility] Bilirubin, Total 0.5 0.2 - 1.3 mg/dL [facility] Est Glomerular Filtration Rate 60 >=60 mL/min/1. 73 m?? [facility] Comment: This patient's estimated [...] MD CHEMISTRY ORDERABL ES Performing Organization Address [facility] Co de Phone Number [facility] [place] [address] * (ABNORMAL) pro-Brain Natriuretic Peptide (05/08/2023 4:00 PM EDT) NT-proBNP 25,503(H) <=124 pg/mL [facility] Blood Venous Draw / Unknown 05/08/2023 4:00 PM EDT 05/08/2023 4:25 PM EDT Narrative Resulting Agency Comment Spec In Lab Juan Luis Gonzalez MD CHEMISTRY ORDERABLES Performing Organization Address City/[facility] Co de Phone Number [facility] [place] [address] * Magnesium (05/08/2023 4:00 PM EDT) Magnesium 0.82 0.69 - 1.07 mmol/L [facility] Blood 05/08/2023 4:00 PM EDT 05/08/2023 4:06 PM EDT Narrative Resulting Agency Comment Spec In Lab Enrique Chua MD CHEMISTRY ORDERABLES Performing Organization Address [facility] Co de Phone Number [facility] [place] [address] * Potassium (05/08/2023 4:00 PM EDT) Potassium 3.9 3.5 - 5.0 mmol/L [facility] Comment: Please note: ??Patients [...] Address [facility] [place] [address] * Heparin (unfractionated) Level (05/08/2023 4:00 PM EDT) UF Heparin 0.43 IU/mL [facility] H[facility] ITAL [facility] Comment: Heparin (anti-Xa) [...] ORDERAB LES Performing Organization Address [facility] Co de Phone Number [facility] [place] [address] * EKG 12 Lead (05/08/2023 3:51 PM EDT) Ventricular rate 98 BPM MUSE SYSTEM Atrial Rate 98 BPM MUSE SYSTEM P-R Interval 150 ms MUSE SYSTEM QRS Duration 102 ms MUSE SYSTEM Q-T Interval 358 ms MUSE SYSTEM QTC Calculated (Bezet) 457 ms MUSE SYSTEM Calculated P [place] 38 degrees MUSE SYSTEM Calculated R [place] 48 degrees MUSE SYSTEM Calculated T [place] -112 degrees MUSE SYSTEM INTERPRETATION Sinus rhythm with frequent and consecutive Premature ventricular and fusion complexes Septal infarct , age undetermined ST & T wave abnormality, consider anterolateral ischemia Abnormal ECG When compared with ECG of 09-NOV-2022 11:17, T wave inversion now evident in Anterolateral leads Confirmed by MD Harshil, Enrique Bell ([id number]) on 05/10/2023 8:11:46 AM MUSE SYSTEM 05/08/2023 3:51 PM EDT 05/10/2023 8:11 AM EDT Radha Hollins MD ECG ORDERABLES MUSE SYSTEM * (ABNORMAL) Differential, Automated (05/08/2023 11:38 AM EDT) Pathologist [facility] Neutrophil % 71.3 % [facility] Neutrophil Absolute 2.91 1.70 - 6.10 x10(3)/mc L [facility] Lymph % 19.1 % [facility] Lymphocytes Abs 0.8(L) 0.9 - 3.2 x10(3)/mc L [facility] Monocyte % 9.0 % [facility] Monocyte Abs 0.4 0.3 - 0.9 x10(3)/mc L [facility] Eos % 0.2 % [facility] Eosinophils Abs 0.0 0.0 - 0.4 x10(3)/mc L [facility] Basophil % 0.2 % [facility] Baso Absolute 0.0 0.0 - 0.1 x10(3)/mc L [facility] Immature Gran % 0.20 % [facility] Comment: Immature granulocytes(IG's)percentage and absolute count will include metamyelocytes, myelocytes, and promyelocytes. Blood smears from CBCs yielding IG's will be scanned manually for concordance. If this scan disagrees with the automated IG or if promyelocytes are noted, a manual differential will be performed. Immature Gran Absolute 0.01 0.00 - 0.04 x10(3)/mc L [facility] Blood 05/08/2023 11:3 8 AM EDT 05/08/2023 11:44 AM EDT Narrative Resulting Agency Comment Spec In Lab Lincoln Sal MD HEMATOLOGY ORDERA BLES [facility] [place] [address] * (ABNORMAL) Hemogram (05/08/2023 11:38 AM EDT) White Blood Cell 4.1 4.0 - 9.5 x10(3)/ L [facility] Red Blood Cell 3.05(L) 4.00 - 5.21 x10(6)/ L [facility] Hemoglobin 10.2(L) 11.7 - 15.5 g/dL [facility] Hematocrit 29.6(L) 35.7 - 45.8 % [facility] Mean Cell Volume 97.0(H) 82.6 - 94.4 fL [facility] Mean Cell Hemoglobin 33.4(H) 27.1 - 32.0 pg [facility] Mean Cell Hemoglobin Concentration 34.5 31.7 - 35.0 g/dL [facility] Platelet 136(L) 145 - 357 x10(3)/mc L [facility] RDW Standard Deviation 44.3 37.0 - 46.0 fL [facility] RDW coefficient of variation 12.6 11.5 - 14.1 % [facility] Mean Platelet Volume 9.4 7.6 - 12.9 fL [facility] NRBC% auto 0.0 % [facility] IT[facility] NRBC Absolute 0.000 0.000 - 0.000 x10(3)/ L [facility] Blood 05/08/2023 11:3 8 AM EDT 05/08/2023 11:44 AM EDT Narrative Resulting Agency Comment Spec In Lab Lincoln Sal MD HEMATOLOGY ORDERA BLES Performing Organization Address [facility] Co de Phone Number [facility] [place] [address] * TSH (05/08/2023 11:38 AM EDT) Thyroid Stimulating Hormone 1.27 0.27 - 4.20 mcIU/mL [facility] Comment: Reference Interval (mcIU/mL): Females: ??First Trimester: 0.23-3.88 ??Second Trimester: 0.22-3.90 ??Third Trimester: 0.44-4.66 Blood 05/08/2023 11:3 8 AM EDT 05/08/2023 11:44 AM EDT Narrative Resulting Agency Comment Spec In Lab Enrique Chua MD CHEMISTRY ORDERABLES Performing Organization Address [facility] Co de Phone Number [facility] [place] [address] * (ABNORMAL) Phosphorus (05/08/2023 11:38 AM EDT) Phosphorus 4.7(H) 2.5 - 4.5 mg/dL [facility] Blood 05/08/2023 11:3 8 AM EDT 05/08/2023 11:44 AM EDT Narrative Resulting Agency Comment Spec In Lab Enrique Chua MD CHEMISTRY ORDERABLES Performing Organization Address [facility] Co de Phone Number [facility] [place] [address] * Magnesium (05/08/2023 11:38 AM EDT) Magnesium 0.76 0.69 - 1.07 mmol/L [facility] Blood 05/08/2023 11:3 8 AM EDT 05/08/2023 11:44 AM EDT Narrative Resulting Agency Comment Spec In Lab Enrique Chua MD CHEMISTRY ORDERABLES Performing Organization Address [facility] Co de Phone Number [facility] [place] [address] * (ABNORMAL) Basic Metabolic Panel (non-fasting) (05/08/2023 11:38 AM EDT) Glucose 97 65 - 199 mg/dL [facility] Comment:Diabetes: >=200 mg/d L plus symptoms Blood Urea Nitrogen 27(H) 8 - 18 mg/dL [facility] Creatinine 1.02 0.70 - 1.20 mg/dL [facility] Sodium 139 135 - 145 mmol/L [facility] Potassium 4.2 3.5 - 5.0 mmol/L [facility] Comment: Please note: ??Patients with WBC >100,000 may have falsely elevated Potassium levels. ??For accurate Potassium quantification in these patients send serum separator tube (gold top) for subsequent determinations. ??Contact the Clinical Chemistry Laboratory if there are any questions. Chloride 105 98 - 107 mmol/L [facility] Carbon Dioxide 20(L) 22 - 31 mmol/L [facility] Anion Gap 14 5 - 15 mmol/L [facility] Calcium 9.4 8.5 - 10.5 mg/dL [facility] Est Glomerular Filtration Rate 60 >=60 mL/min/1. 73 m?? [facility] Comment: This patient's estimated [...] Chua MD CHEMISTRY ORDERABLES Performing Organization Address [facility]/ZIP Co de Phone Number [facility] [place] [address] * ECHO COMPLETE (05/08/2023 11:02 AM EDT) EF 25 HEARTLAB SYSTEM Anatomical Region Laterality Modality Cardiac Other 05/08/2023 10:0 3 AM EDT Narrative 05/08/2023 11:51 AM EDT ? Echocardiogram Report Name: PURNIMA THACKER ?Study Date: 05/08/2023 10:03 AMBP: 92/64 mmHg ? Patient Location: [facility]^CV29^A : 1955 ? Height: 155 cm ? Account: [id number] Age: 67 yrs ? Weight: 78 kg [...] worsening stenosis. Mitral regurgitation is similar. Procedure Complete-71749. Satisfactory quality. There is normal sinus rhythm. [...] Study Date: 0:03 AMBP: 92/64 mmHg Patient Location:[facility]^CV29^A : 1955 Height: 155 cm Account: [id number] Age: 67 yrs Weight: 78 kg Gender: [...] suggestsworsening stenosis. Mitral regurgitation is similar. Procedure Complete-[id number]. Satisfactory quality. There is normal sinus rhythm. [...] 9:45 AM EDT) UF Heparin 0.54 IU/mL [facility] ITAL [facility] Comment: Heparin (anti-Xa) [...] Lab Enrique Chua MD HEMATOLOGY ORDERABLE S [facility] [place] [address] documented in this encounter Visit Diagnoses Diagnosis S/P TAVR (transcatheter aortic valve replacement)- Primary Aortic valve stenosis, etiology of cardiac valve disease unspecified Heart failure with reduced ejection fraction due to heart valve disease Mild coronary artery disease by [facility] 11/09/2022 Mixed connective tissue disease Other [...] Mild coronary artery disease by [facility] 11/09/2022 Stenosis of prosthetic aortic valve [...] hours., Routine 1230 (Not Given - Provider: Gabion Calhoun RN - Reason: Patient/family refused) 1149 [...] Routine documented in this encounter Care Teams Asphalt Worker Relationship Specialty Start Date End Date Magdalena Acosta MD [address] [place] [address] PCP - General Family Medicine 02/05/23 documented as of this encounter
--- OUTSIDE RECORDS SUMMARY | 2024-04-25 16:17 | XMS_ITS | Encounter Summary ---
Author Organization [facility] Address [facility] [place] [address] Care Team Providers Care Obstetrician Gynecologist Name Role Phone Deborah Quiroga APRN Primary Care Provider [phone] Reason for Visit * Reason Comments Follow-up Encounter Details Date Type Department Care Team (Late st Contact Info) Description 07/03/2022 1:30 PM EST Office Visit Hematology [place] [address] Markel Borjas MD [facility] [address] [place] [address] Consuelo Sommer APRN [facility] [address] [place] [address] Chronic idiopathic neutropenia; Dysuria Social History Tobacco [...] 07/03/2022 1:30 PM EST Hematology Outpatient Clinic [facility] Hematology Outpatient Consult Note CC: [...] TOUCH PREP, CLOT SECTION, CORE ??BIOPSY); [OSR# [id number], COLLECTED 06/23/2016, 19 SLIDES]: ?1. 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 Extremities: No edema. Labs: Hgb= 11.7 Rsqx=646 ANC= 2.5 Imaging As above - reviewed [...] EDT Appointment Hematology [place] [address] 05/12/2024 10:00 AM EDT Office Visit Hematology [place] [address] Markel Borjas MD [facility] [address] [place] [address] 03/01/2025 4:15 PM EDT Office Visit Dermatology at [place] [address] [place] [address] Marek Bonilla MD [address] [facility] [place] [address] documented as of this encounter Procedures Procedure [...] - GEN ERAL ORDERABLES Performing Organization Address City/[facility]/ZIP Co de Phone Number [facility] [address] * (ABNORMAL) Urinalysis Microscopic Exam (07/03/2022 2:00 [...] Borjas MD URINE ORDERABLES Performing Organization Address City/[facility]/ZIP Co de Phone Number [facility] [place] [address] * (ABNORMAL) Urinalysis with reflex Culture (07/03/2022 [...] HOSPITAL LABORATORY Leukocytes, Urine Dipstick Small(A) Negative [facility] Appearance, Urine Dipstick Clear Clear [facility] Specific [place] Urine Automated 1.022 1.005 - 1.030 [facility] Color, Urine Dipstick Yellow Yellow [facility] Reflex to Culture Yes [facility] Clean Catch Urine 07/03/2022 2:00 PM EST 07/03/2022 2:29 PM EST Narrative Resulting Agency Comment Spec In Lab Markel Borjas MD URINE ORDERABLES [facility] [place] [address] * (ABNORMAL) Comprehensive metabolic panel (non-fasting) (07/03/2022 [...] CHEMISTRY ORDERABL ES [facility] [place] [address] documented in this encounter Visit Diagnoses Diagnosis Chronic idiopathic neutropenia Other neutropenia Dysuria documented in this encounter Care Teams Obstetrician Gynecologist Relationship Specialty Start Date End Date Deborah Quiroga APRN PCP - General Family Medicine 03/24/16 02/04/23 documented as of this encounter
--- OUTSIDE RECORDS SUMMARY | 2024-04-25 16:17 | XMS_ITS | Encounter Summary ---
Author Organization [facility] [place] [address] Care Team Providers Care Torpedo Shooter Name Role Phone Ashley Quirogan Cornelius ANURAG Primary Care Provider [phone] Encounter Details Date Type Department Care Team (Late st Contact Info) Description 11/02/2022 [place] [phone] Emily Lyons PA [facility] [place] [address] Aortic valve stenosis, etiology of cardiac valve [...] EDT Appointment Hematology [place] [address] 05/12/2024 10:00 AM EDT Office Visit Hematology [place] [phone] Markel Borjas MD [facility] [address] HEMATOLOGY AND ONCOLOGY [place], [place] [phone] 03/01/2025 4:15 PM EDT Office Visit Dermatology at [place] [address] [place] [phone] Marek Bonilla MD [address] [facility] [address] [place] [address] documented as of this encounter Visit Diagnoses Diagnosis Aortic valve stenosis, etiology of cardiac valve disease unspecified documented in this encounter Care Teams Torpedo Shooter Relationship Specialty Start Date End Date Deborah Quiroga, [employer] PCP - General Family Medicine 03/24/16 02/04/23 documented as of this encounter
--- OUTSIDE RECORDS SUMMARY | 2024-04-25 16:17 | XMS_ITS | Encounter Summary ---
Author Organization [facility] [place] [address] Care Team Providers Care Manager Welding Name Role Phone Magdalena Acosta MD Primary Care Provider [phone] Encounter Details Date Type Department Care Team [...] AM EDT Appointment Hematology [place] [address] 05/12/2024 10:00 AM EDT Office Visit [place]ology [place] [address] Markel Borjas MD [facility] [address] [place] [address] 03/01/2025 4:15 PM EDT Office Visit Dermatology at [place] [address] [facility] [place] [phone] Marek Bonilla MD [address] [facility] [place] [address] documented as of this encounter Visit Diagnoses Not on filedocumented in this encounter Care Teams Manager Welding Relationship Specialty Start Date End Date Magdalena Acosta MD [address] [place] [address] PCP - General Family Medicine 02/05/23 documented as of this encounter
--- OUTSIDE RECORDS SUMMARY | 2024-04-25 16:17 | XMS_ITS | Encounter Summary ---
Author Organization [facility] [place] [address] Care Team Providers Care Automobile Or Truck Rental Dispatcher Name Role Phone Magdalena Acosta MD Primary Care Provider [phone] Reason for Referral * Consultation (Routine) - Closed Specialty Diagnoses / Procedures Referred By Contac t Referred To Contact Rheumatology Diagnoses Weakness Kyra Haas MD [facility] [address] [place] [address] [facility] [address] [place] [phone] Referral ID Status Reason Start Date Expiration Date V isits Requested Visits Authorized [id number] Closed Consult, Test & Treat PCP Updated and/or Approved 02/25/2023 02/25/2024 6 6 Encounter Details Date Type Department Care Team (Late st Contact Info) Description 02/25/2023 Transcribe Orders eDH Incoming Referrals [phone] Magdalena Acosta MD [address] [place] [address] Weakness Social History Tobacco Use [...] AM EDT Appointment Hematology [place] [address] 05/12/2024 10:00 AM EDT Office Visit Hematology [place] [address] Markel Borjas MD [facility] [address] HEMATOLOGY [place] [address] 03/01/2025 4:15 PM EDT Office Visit Dermatology at [place] [address] [place] [address] Marek Bonilla MD [address] [place] [address] Scheduled Referrals Name Type Priority Associated Diagnoses Order Schedule Referral to Rheumatology Outpatient Referral Routine Weakness Ordered: 02/25/2023 documented as of this encounter Visit Diagnoses Diagnosis Weakness Other malaise and fatigue documented in this encounter Care Teams Automobile Or Truck Rental Dispatcher Relationship Specialty Start Date End Date Magdalena Acosta MD [address] [place] [address] PCP - General Family Medicine 02/05/23 documented as of this encounter
--- OUTSIDE RECORDS SUMMARY | 2024-04-25 16:17 | XMS_ITS | Encounter Summary ---
Author Organization [facility] [place] [address] Care Team Providers Care Clinical Safety Manager Name Role Phone Deborah Quiroga APRN Primary Care Provider [phone] Encounter Details Date Type Department Care Team (Late st Contact Info) Description 11/09/2022 11:30 AM EDT - 11/09/2022 12:30 PM [place] [address] Nitesh Escobedo MD [facility] [place] [address] CARDIAC CATHETERIZATION Social History Tobacco Use Types [...] through the [facility] Export Agent . Issues afterhours and on weekends will be handled by the Hospitalist staff on-call. * Attachments The following attachments cannot be sent through Care Everywhere. * Coronary Angiogram: Post-op (Guyanese) * Right Heart Catheterization: Pulmonary Artery Catheterization: Post-op (Guyanese) documented in this encounter Medications at Time of Discharge Medication Sig Dispensed Refills Start Date End Date nystatin (MYCOSTATIN) 100,000 unit/gram Powder Apply topically 2 times daily as needed. 10/22/2022 ZooomrTouch Verio test strips Strip USE DAILY 01/03/2022 ZooomrToAnergis Delica Plus Lancet 33 gauge Misc USE [...] Pre-Procedure H&P Update: Cardiac Catheterization Purnima Thacker [id number] 1955 Chief Complaint: BONILLA HPI: Purnima Thacker [...] AM [facility] Pager: [phone] documented in this encounter Plan of Treatment Upcoming Encounters Date Type Department Care Team (Late st Contact Info) Description 05/12/2024 9:00 AM EDT Appointment Hematology [place] [address] 05/12/2024 10:00 AM EDT Office Visit Hematology [place] [address] Markel Borjas MD [facility] [address] HEMATOLOGY [place] [address] 03/01/2025 4:15 PM EDT Office Visit Dermatology at [place] [address] [place] [address] Marek Bonilla MD [address], [place] [address] documented as of this encounter Procedures Procedure Name Priority Date/Time Associated Diagnosis Comments CARDIAC CATHETERIZATION Routine 11/10/19 1:05 PM EDT Aortic valve stenosis, etiology of cardiac valve disease unspecified Cath Plmt Left Heart Cath & Arts W/Inj & Angio Img S&I ([id number]) 11/09/2022 11:51 AM EDT Aortic valve stenosis, etiology of cardiac valve disease unspecified EKG 12-LEAD Routine 11/09/2022 11:17 AM EDT Aortic valve stenosis, etiology of cardiac valve disease unspecified documented in this encounter Results * CARDIAC CATHETERIZATION (11/09/2022 1:05 PM EDT) Anatomical Region Laterality Modality Other Narrative 11/09/2022 2:01 PM EDT ?[facility] ? Cardiac Catheterization/Intervention Report ? Patient Name: Kirstie, Purnima M. ? Procedure Date: 11/09/2022 ? A #: [id number] ? Primary Physician: Nitesh Escobedo ? Case #: [id number] ? File Name: [id number] ? Catheterization Order Number: [id number] ? [facility] ? Final Report [place], [place] ? Patient Name: ? Purnima M. Kirstie ? ID#: ?[id number] ? : ?1955 ? Procedure Date: ? [...] was designated as ASA Class III. [facility] clinical frailty scale ?is 4: [...] (Bezet) 457 ms MUSE SYSTEM Calculated P [place] 44 degrees MUSE SYSTEM Calculated R [place] 33 degrees MUSE SYSTEM Calculated T [place] 30 degrees MUSE SYSTEM INTERPRETATION Sinus rhythm Occasional Premature ventricular complexes Otherwise normal ECG When compared with ECG of 21-SEP-2016 12:26, Premature ventricular complexes are now Present [place] interval has decreased Nonspecific T wave abnormality has replaced inverted T waves in Inferior leads I personally reviewed the tracing and edited the fellows interpretation Confirmed by fellow MD Anitha, Carissa ([id number]) on 11/09/2022 6:17:28 PM Confirmed by Elsa [...] MD) documented in this encounter Care Teams Clinical Safety Manager Relationship Specialty Start Date End Date Junaid Deborah Shields, HULL GRINDER PCP - General Family Medicine 03/24/16 02/04/23 documented as of this encounter
--- OUTSIDE RECORDS SUMMARY | 2024-04-25 16:17 | XMS_ITS | Encounter Summary ---
Author Organization Formerly [facility] [place] [address] Care Team Providers Care Photofinishing Laboratory Worker Name Role Phone Magdalena Acosta MD Primary Care Provider [phone] Encounter Details Date Type Department Care Team [...] AM EDT Appointment Hematology [place] [address] 05/12/2024 10:00 AM EDT Office Visit [place] [address] Markel Borjas MD [facility] [address] [place] [address] 03/01/2025 4:15 PM EDT Office Visit Dermatology at [place] [address] [place] [address] Marek Bonilal MD [address] [facility] [place] [address] documented as of this encounter Visit Diagnoses Not on filedocumented in this encounter Care Teams Photofinishing Laboratory Worker Relationship Specialty Start Date End Date Magdalena Acosta MD [address] [place] [address] PCP - General Family Medicine 02/05/23 documented as of this encounter
--- OUTSIDE RECORDS SUMMARY | 2024-04-25 16:17 | XMS_ITS | Encounter Summary ---
Author Organization [facility] Address [facility] [place] [address] Care Team Providers Care Patch Worker Name Role Phone Magdalena Acosta MD Primary Care Provider [phone] Encounter Details Date Type Department Care Team (Late st Contact Info) Description 04/27/2023 3:00 PM EDT Office [place] [address] Magdalena Peralta MD [facility] [place] [address] Mixed connective tissue disease Social History Tobacco [...] 1:5120 speckled; VIC negative; Myositis panel with CULTURAL ANTHROPOLOGY PROFESSOR ab 149.1 (positive); Anti U1RNP IgG 119; [...] AM EDT Appointment Hematology [place] [address] 05/12/2024 10:00 AM EDT Office Visit Hematology [place] [address] Markel Borjas MD [facility] [address] [place] [address] 03/01/2025 4:15 PM EDT Office Visit Dermatology at [place] [address] [place] [address] Marek Bonilla MD [address], [place] [address] documented as of this encounter Visit Diagnoses Diagnosis Mixed connective tissue disease Other specified diffuse disease of connective tissue documented in this encounter Care Teams Patch Worker Relationship Specialty Start Date End Date Magdalena Acosta MD [address] [place] [address] PCP - General Family Medicine 02/05/23 documented as of this encounter
--- OUTSIDE RECORDS SUMMARY | 2024-04-25 16:17 | XMS_ITS | Encounter Summary ---
Author Organization [facility] [place] [address] Care Team Providers Care Correctional Officer Lieutenant Name Role Phone Ashley Quirogazac Shields APRN Primary Care Provider [phone] Encounter Details Date Type Department Care Team [...] AM EDT Appointment Hematology [place] [address] 05/12/2024 10:00 AM EDT Office Visit Hematology [place] [address] Markel Borjas MD [facility] [address] [place] [address] 03/01/2025 4:15 PM EDT Office Visit Dermatology at [place] [address] [address] Marek Bonilla MD [address] [facility] [place] [address] documented as of this encounter Visit Diagnoses Not on filedocumented in this encounter Care Teams Correctional Officer Lieutenant Relationship Specialty Start Date End Date Deborah Quiroga APRN PCP - General Family Medicine 03/24/16 02/04/23 documented as of this encounter
--- OUTSIDE RECORDS SUMMARY | 2024-04-25 16:17 | XMS_ITS | Encounter Summary ---
Author Organization [facility] [place] [address] Care Team Providers Care Office Machine Servicer Apprentice Name Role Phone Magdalena Acosta MD Primary Care Provider [phone] Encounter Details Date Type Department Care Team (Late st Contact Info) Description 03/29/2023 Orders Only Cardiology at [address] [address] Ranjan Delgado MD [facility] [place] [address] Severe aortic stenosis (Primary Dx) Social History [...] AM EDT Appointment Hematology [place] [address] 05/12/2024 10:00 AM EDT Office Visit [place]ematology [place] [address] Markel Borjas MD [facility] [address] [place] [address] 03/01/2025 4:15 PM EDT Office Visit Dermatology at [place] [address] [place] [address] Marek Bonilla MD [address], [place] [address] Scheduled Orders Name Type Priority Associated Diagnoses [...] disorders documented in this encounter Care Teams Office Machine Servicer Apprentice Relationship Specialty Start Date End Date Magdalena Acosta MD [address] [place] [address] PCP - General Family Medicine 02/05/23 documented as of this encounter
--- OUTSIDE RECORDS SUMMARY | 2024-04-25 16:17 | XMS_ITS | Encounter Summary ---
Author Organization [facility] [place] [address] Care Team Providers Care Water Carter Name Role Phone Magdalena Acosta MD Primary Care Provider [phone] Encounter Details Date Type Department Care Team (Latest Contact Info) Description 03/18/2023 2:30 PM EDT Laboratory Appointment Lab [address] [address] Positive FRANCISCO (antinuclear antibody) Social History Tobacco [...] AM EDT Appointment Hematology [place] [address] 05/12/2024 10:00 AM EDT Office Visit Hematology [place] [address] Markel Borjas MD [facility] HEMATOLOG[place] [address] 03/01/2025 4:15 PM EDT Office Visit Dermatology at [address] [address] Marek Bonilla MD [address] [facility] [place], [place] [address] documented as of this encounter Procedures Procedure [...] [facility] Neutrophil % 71.2 % [facility] Neutrophil Absolute 2.26 1.70 - 6.10 x10(3)/mc L [facility] Lymph % 18.2 % [facility] Lymphocytes Abs 0.6(L) 0.9 - 3.2 x10(3)/ L [facility] Monocyte % 9.7 % [facility] Monocyte Abs 0.3 0.3 - 0.9 x10(3)/[facility] Eos % 0.3 % [facility] Eosinophils Abs 0.0 0.0 - 0.4 x10(3)/[facility] Basophil % 0.6 % [facility] Baso Absolute 0.0 0.0 - 0.1 x10(3)/[facility] Immature Gran % 0.00 % [facility] Comment: Immature granulocytes(IG's)percentage and absolute count will include metamyelocytes, myelocytes, and promyelocytes. Blood smears from CBCs yielding IG's will be scanned manually for concordance. If this scan disagrees with the automated IG or if promyelocytes are noted, a manual differential will be performed. Immature Gran Absolute 0.00 0.00 - 0.04 x10(3)/[facility] Blood 03/18/2023 2:14 PM EDT 03/18/2023 2:24 PM EDT Narrative Resulting Agency Comment Spec In Lab Magdalena Peralta MD HEMATOLOGY ORDERABLE S [facility] [place] [address] * (ABNORMAL) Hemogram (03/18/2023 2:14 PM EDT) White Blood Cell 3.2(L) 4.0 - 9.5 x10(3)/[facility] Red Blood Cell 3.44(L) 4.00 - 5.21 x10(6)/[facility] Hemoglobin 11.1(L) 11.7 - 15.5 g/dL [facility] Hematocrit 32.9(L) 35.7 - 45.8 % [facility] Mean Cell Volume 95.6(H) 82.6 - 94.4 fL [facility] Mean Cell Hemoglobin 32.3(H) 27.1 - 32.0 pg [facility] Mean Cell Hemoglobin Concentration 33.7 31.7 - 35.0 g/dL [facility] Platelet 144(L) 145 - 357 x10(3)/mc L [facility] RDW Standard Deviation 42.6 37.0 - 46.0 fL [facility] RDW coefficient of variation 12.3 11.5 - 14.1 % [facility] Mean Platelet Volume 9.4 7.6 - 12.9 fL [facility] NRBC% auto 0.0 % [facility] NRBC Absolute 0.000 0.000 - 0.000 x10(3)/mc L [facility] Blood 03/18/2023 2:14 PM EDT 03/18/2023 2:24 PM EDT Narrative Resulting Agency Comment Spec In Lab Magdalena Peralta MD HEMATOLOGY ORDERABLE S Performing Organization Address City/[facility]/ZIP Co de Phone Number [facility] [place] [address] * (ABNORMAL) Sedimentation rate (03/18/2023 2:14 PM EDT) Sedimentation Rate Automated 68(H) 2 - 39 mm/hr [facility] Comment: Effective July 12, 2019 new capillary photometric technology has resulted in a change in reference ranges. It is recommended that each ESR result be reviewed with its own age appropriate reference range. Blood 03/18/2023 2:14 PM EDT 03/18/2023 2:24 PM EDT Narrative Resulting Agency Comment Spec In Lab Kia Viramontes DO HEMATOLOGY ORDERAB LES [facility] [place] [address] * CRP, acute inflammation (03/18/2023 2:14 PM EDT) C-Reactive Protein 3.0 <=4.9 mg/L [facility] Blood 03/18/2023 2:14 PM EDT 03/18/2023 2:24 PM EDT Narrative Resulting Agency Comment Spec In Lab Kiagiacomo Mossew DO CHEMISTRY ORDERABL ES Performing Organization Address [facility] Co de Phone Number [facility] [place] [address] * C3 Complement (03/18/2023 2:14 PM EDT) Complement C3 142 90 - 180 mg/dL [facility] Blood 03/18/2023 2:14 PM EDT 03/18/2023 2:24 PM EDT Narrative Resulting Agency Comment Spec In Lab Kia Mossew DO CHEMISTRY ORDERABL ES Performing Organization Address [facility] de Phone Number [facility] [place] [address] * C4 Complement (03/18/2023 2:14 PM EDT) Complement C4 30 10 - 40 mg/dL [facility] Blood 03/18/2023 2:14 PM EDT 03/18/2023 2:24 PM EDT Narrative Resulting Agency Comment Spec In Lab Kia Mossew DO CHEMISTRY ORDERABL ES Performing Organization Address [facility] de Phone Number [facility] [place] [address] * CK (03/18/2023 2:14 PM EDT) Creatine Kinase 38 0 - 160 unit/L [facility] Blood 03/18/2023 2:14 PM EDT 03/18/2023 2:24 PM EDT Narrative Resulting Agency Comment Spec In Lab Kia D Wander DO CHEMISTRY ORDERABL ES Performing Organization Address [facility] Co de Phone Number [facility] [place] [address] * DNA Antibody (Double-Stranded) (03/18/2023 2:14 PM EDT) dsDNA Ab <0.6 <=15.0 IU/mL [facility] Comment: <10 negative 10-15 equivocal >15 positive This dsDNA antibody result was generated using a fluoroenzyme immunoassay on the Explorra 250 analyzer. This quantitative test is designed [...] Viramontes DO LAB SEND OUT ORDER JODIE [facility] [place] [address] * (ABNORMAL) FRANCISCO Ab by IFA (03/18/2023 2:14 PM EDT) [facility] FRANCISCO Ab Screen Test ? Result ?Flag ??Unit ??RefValue Antinuclear Ab, HEp-2 ?Positive 1:2560 ??@ ?<1:80 (Negative) ??Substrate, S ? ADDITIONAL INFORMATION --------- ?Method: Immunofluorescence using HEp-2 cellular substrate. ??FRANCISCO Titer: ? 1:2560 ??FRANCISCO Pattern: ? Speckled ?Test Performed by: ?[facility] ?[address] [place] [address] ?Elevator Troubleshooter: Raymond Chaudhry M.D. Ph.D.; CLIA# [id number] ([id number]) [facility] Blood 03/18/2023 2:14 PM EDT 03/18/2023 3:02 PM EDT Narrative Resulting Agency Comment Spec In Lab Kia Viramontes DO CHEMISTRY ORDERABL ES [facility] [place] [address] * Comprehensive metabolic panel (non-fasting) (03/18/2023 2:14 PM EDT) Glucose 93 65 - 199 mg/dL [facility] Comment:Diabetes: >=200 mg/d L plus symptoms Blood Urea Nitrogen 18 8 - 18 mg/dL [facility] Creatinine 0.99 0.70 - 1.20 mg/dL [facility] Sodium 141 135 - 145 mmol/L [facility] Potassium 4.5 3.5 - 5.0 mmol/L [facility] Comment: Please note: ??Patients with WBC >100,000 may have falsely elevated Potassium levels. ??For accurate Potassium quantification in these patients send serum separator tube (gold top) for subsequent determinations. ??Contact the Clinical Chemistry Laboratory if there are any questions. Chloride 106 98 - 107 mmol/L [facility] Carbon Dioxide 24 22 - 31 mmol/L [facility] Anion Gap 11 5 - 15 mmol/L [facility] Calcium 10.0 8.5 - 10.5 mg/dL [facility] Protein, Total 7.3 6.1 - 8.0 g/dL [facility] Albumin 4.3 3.2 - 5.2 g/dL [facility] Aspartate Aminotransferase 26 0 - 30 unit/L [facility] Alanine Aminotransferase 11 0 - 30 unit/L [facility] Alkaline Phosphatase 91 35 - 105 unit/L [facility] Bilirubin, Total 0.4 0.2 - 1.3 mg/dL [facility] Est Glomerular Filtration Rate 62 >=60 mL/min/1. 73 m?? [facility] [...] Lab Kia Viramontes DO CHEMISTRY ORDERABL ES [facility] [address] documented in this encounter Visit Diagnoses Diagnosis Positive FRANCISCO (antinuclear antibody) Other and unspecified nonspecific immunological findings documented in this encounter Care Teams Water Carter Relationship Specialty Start Date End Date Magdalena Acosta MD [address] [place] [address] PCP - General Family Medicine 02/05/23 documented as of this encounter
--- OUTSIDE RECORDS SUMMARY | 2024-04-25 16:17 | XMS_ITS | Encounter Summary ---
Author Organization [facility] [place] [address] Care Team Providers Care Airbrush Artist Photography Name Role Phone Magdalena Acosta MD Primary Care Provider [phone] Encounter Details Date Type Department Care Team (Latest Contact Info) Description 02/05/2023 9:33 PM EDT - 02/05/2023 11:59 PM EDT Hospital [place] [address] Discharge Disposition: Home Social History Tobacco Use [...] AM EDT Appointment H[place] [address] 05/12/2024 10:00 AM EDT Office Visit [place] [address] Markel Borjas MD [facility] [address] HEMATOLOGY [place] [address] 03/01/2025 4:15 PM EDT Office Visit Dermatology at [place] [address] [facility] [place] [address] Marek Bonilla MD [address], [place] [address] documented as of this encounter Procedures Procedure Name Priority Date/Time Associated Diagnosis Comments SURGICAL PATHOLOGY REPORT Routine 02/05/2023 3:00 PM EDT documented in this encounter Results * Surgical Pathology Report (02/05/2023 3:00 PM EDT) Final Diagnosis [id number] ? Location: OPW The signing pathologist has (i) examined the relevant preparation(s) for the specimen(s) and (ii) rendered or confirmed the diagnosis(es). . ?Surgical Pathology DIAGNOSIS Left upper back, skin punch biopsy: - ??Compound dysplastic ??melanocytic nevus with moderate atypia, transected at peripheral specimen edges ?? (see discussion) Electronically signed by: ?Vanna CULP, Jesse Shields Verified: ??02/16/2023 8:04 ?? Dermatopathologist Performed at: ??-[facility] Dept. of Pathology, [place] [address] Housekeeping Manager: Kunal Rubi MD, AP, ??CLIA Certificate: [id number] DISCUSSION If there is an obvious clinical [...] EDT Marek Bonilla MD PATHOLOGY/CYTOLOGY O REMI [facility] [place] [address] [facility] [place] [address] documented in this encounter Visit Diagnoses Not on filedocumented in this encounter Care Teams Airbrush Artist Photography Relationship Specialty Start Date End Date Magdalena Acosta MD [address] [place] [address] PCP - General Family Medicine 02/05/23 documented as of this encounter
--- OUTSIDE RECORDS SUMMARY | 2024-04-25 16:17 | XMS_ITS | Encounter Summary ---
Author Organization [place] [address] Care Team Providers Care Spray Gun Repairer Helper Name Role Phone Deborah Quiroga APRN Primary Care Provider [phone] Encounter Details Date Type Department Care Team (Latest Contact Info) Description 07/03/2022 1:36 PM EST - 07/03/2022 11:59 PM EST Hospital Encounter Hematology [place] [address] Discharge Disposition: Home Social History Tobacco Use [...] AM EDT Appointment Hematology [place] [address] 05/12/2024 10:00 AM EDT Office Visit Hematology [place] [address] Markel Borjas MD [facility] [address] HEMATOLOGY [place] [address] 03/01/2025 4:15 PM EDT Office Visit Dermatology at [place] [address] [place] [address] Marek Bonilla MD [address], [place] [address] documented as of this encounter Procedures Procedure Name Priority Date/Time Associated Diagnosis Comments FOLATE, SERUM Routine 07/03/2022 1:59 PM EST VITAMIN B12 Routine 07/03/2022 1:59 PM EST documented in this encounter Results * Folate, serum (07/03/2022 1:59 PM EST) Folate >20.0 4.8 - 24.2 ng/mL [facility] Blood Venous Draw / Unknown 07/03/2022 1:59 PM EST 07/03/2022 2:13 PM EST Narrative Resulting Agency Comment Spec In Lab Markel Borjas MD CHEMISTRY ORDERABL ES Performing Organization Address City/[facility]/ZIP Co de Phone Number [facility] [place] [address] * Vitamin B12 (07/03/2022 1:59 PM EST) Vitamin B12 449 232 - 1,245 pg/mL [facility] Blood Venous Draw / Unknown 07/03/2022 1:59 PM EST 07/03/2022 2:13 PM EST Narrative Resulting Agency Comment Spec In Lab Markel Borjas MD CHEMISTRY ORDERABL ES Performing Organization Address City/[facility]/ZIP Co de Phone Number [facility] [place] [address] documented in this encounter Visit Diagnoses Not on filedocumented in this encounter Care Teams Spray Gun Repairer Helper Relationship Specialty Start Date End Date Deborah Quiroga APRN PCP - General Family Medicine 03/24/16 02/04/23 documented as of this encounter
--- OUTSIDE RECORDS SUMMARY | 2024-04-25 16:18 | XMS_ITS | Encounter Summary ---
Author Organization [facility] [place] [address] Care Team Providers Care Optical Design Engineer Name Role Phone Deborah Quiroga APRN Primary Care Provider [phone] Encounter Details Date Type Department Care Team (Late st Contact Info) Description 06/17/2022 Ancillary Procedure Radiology Library [place] [phone] Deborah Quiroga APRN [address] [place] [phone] Social History Tobacco Use Types Packs/Day [...] AM EDT Appointment Hematology [place] [address] 05/12/2024 10:00 AM EDT Office Visit Hematology [place] [address] Markel Borjas MD [facility] HEMATOLOGY [place] [address] 03/01/2025 4:15 PM EDT Office Visit Dermatology at [place] [address] [place] [address] Marek Bonilla MD [address], [place] [address] documented as of this encounter Procedures Procedure Name Priority Date/Time Associated Diagnosis Comments FILM LIBRARY STORAGE ONLY MR SPINE Routine 06/17/2022 12:00 AM EST documented in this encounter Results * Film Library- Storage Only MR Spine (06/17/2022 12:00 AM EST) Narrative [facility] - 06/18/2022 11:00 AM EST This exam is auto-finalizing. It's purpose is for storage only. Deborah Quiroga APRN IMG FILM LIBRARY OR DERABLES Performing Organization Address City/[facility] de Phone Number [place], [place] documented in this encounter Visit Diagnoses Not on filedocumented in this encounter Care Teams Optical Design Engineer Relationship Specialty Start Date End Date Deborah Quiroga APRN PCP - General Family Medicine 03/24/16 02/04/23 documented as of this encounter
--- OUTSIDE RECORDS SUMMARY | 2024-04-25 16:18 | XMS_ITS | Encounter Summary ---
[place] [address] Care Team Providers Care Card Doffer Name Role Phone Ashley Quirogan Cornelius ANURAG Primary Care Provider [phone] Reason for Visit * Reason Onset Date Comments Medical Care Coordination 07/27/2017 Encounter Details Date Type Department Care Team (Late st Contact Info) Description 07/27/2017 Telephone [place]ematology [place] [address] Alexandrea Greenwood RN Medical Care Coordination Social [...] 12:25 PM EST Message received from secretary receptionist: Injection/Infusion Referral Call placed to [facility] @ [phone] Spoke w/ BROADCAST FIELD SUPERVISOR Services to be provided for pt are: CBC/CMP DONE Q6 MONTHS X2 STARTING NOVEMBER 2017 TECH confirmed they would provide services to pt - I CALLED PT, LM. Pt orders faxed to [phone] documented in this encounter Plan of Treatment Upcoming Encounters Date Type Department Care Team (Late st Contact Info) Description 05/12/2024 9:00 AM EDT Appointment [place]ology [place] [address] 05/12/2024 10:00 AM EDT Office Visit [place]ematology [place] [address] Markel Borjas MD [facility] [address] HEMATOLOGY [place] [address] 03/01/2025 4:15 PM EDT Office Visit Dermatology at [place] [address] [place] [address] Marek Bonilla MD [address], [place] [address] documented as of this encounter Visit Diagnoses Not on filedocumented in this encounter Care Teams Card Doffer Relationship Specialty Start Date End Date Deborah Quiroga APRN PCP - General Family Medicine 03/24/16 02/04/23 documented as of this encounter
--- OUTSIDE RECORDS SUMMARY | 2024-04-25 16:18 | XMS_ITS | Encounter Summary ---
Author Organization [facility] Address [facility] Erika [facility] [place] [address] Care Team Providers Care Motor Builder Assembler Name Role Phone Deborah Quiroga APRN Primary Care Provider [phone] Reason for Visit * Consultation (Routine) - Closed Specialty Diagnoses / Procedures Referred By Contkrystle t Referred To Contact Rheumatology Diagnoses Positive FRANCISCO (antinuclear antibody) Arthralgia, unspecified joint Sandy Wu APRN [address] [place] [address] [facility] Rheumatology [address] [place] [address] Referral ID Status Reason Start Date Expiration Date V isits Requested Visits Authorized [id number] Closed Consult, Test & Treat PCP Updated and/or Approved 01/01/2022 01/01/2023 6 6 Encounter Details Date Type Department Care Team (Latest Contact Info) Description 01/20/2022 10:00 AM EDT Office [place] [address] Raymond Loredo MD [facility] [place] [address] Rosacea; Raynaud's phenomenon without gangrene; [...] over radiocarpal or ulnocarpal joints. Hands: Normal investment associate and claw. SJC/TJC 0/0. Hips: Full motion, [...] can be done locally or here at [facility] that the current time is not particularly interested it seems Raymond Loredo MD documented in this encounter Plan of Treatment Upcoming Encounters Date Type Department Care Team (Late st Contact Info) Description 05/12/2024 9:00 AM EDT Appointment [place] [address] 05/12/2024 10:00 AM EDT Office Visit [place] [address] Markel Borjas MD [facility] [address] [place] [address] 03/01/2025 4:15 PM EDT Office Visit Dermatology at [address] [place] [address] Marek Bonilla MD [address], [place] [address] Scheduled Referrals Name Type Priority Associated Diagnoses [...] syndrome documented in this encounter Care Teams Motor Builder Assembler Relationship Specialty Start Date End Date Junaid, Deborah E, HARB[employer] POLICE LAUNCH COMMANDER PCP - General Family Medicine 03/24/16 02/04/23 documented as of this encounter
--- OUTSIDE RECORDS SUMMARY | 2024-04-25 16:18 | XMS_ITS | Encounter Summary ---
Author Organization [facility] Erika lópez[place]yl[place] [address] Care Team Providers Care Spa Therapist Name Role Phone Deborah Quiroga ANURAG Primary Care Provider [phone] Encounter Details Date Type Department Care Team (Late st Contact Info) Description 01/13/2021 Refill Dermatology at [address] [address] Taylor Malone, MECHANICAL INTEGRITY SPECIALIST Social History Tobacco Use Types Packs/Day [...] AM EDT Appointment Hematology [place] [address] 05/12/2024 10:00 AM EDT Office Visit Hematology [place] [address] Markel Borjas MD [facility] [place] [address] 03/01/2025 4:15 PM EDT Office Visit Dermatology at [address] [address] Marek Bonilla MD [address] [place] [address] documented as of this encounter Visit Diagnoses Not on filedocumented in this encounter Care Teams Spa Therapist Relationship Specialty Start Date End Date Deborah Quiroga APRN PCP - General Family Medicine 03/24/16 02/04/23 documented as of this encounter
--- OUTSIDE RECORDS SUMMARY | 2024-04-25 16:18 | XMS_ITS | Encounter Summary ---
Author Organization [facility] [place] [address] Care Team Providers Care Measurement Analyst Name Role Phone Ashley Quirogan Cornelius ANURAG Primary Care Provider [phone] Encounter Details Date Type Department Care Team (Late st Contact Info) Description 02/06/2020 Orders Only Hematology [place] [address] Markel Borjas MD [facility] [address] HEMATOLOGY [place] [address] Neutropenia, unspecified type Social History Tobacco Use [...] Appointment Hematology [place] [address] 05/12/2024 10:00 AM EDT Office Visit [place]ematology [place] [address] Markel Borjas MD [facility] [address] HEMATOLOGY [place] [address] 03/01/2025 4:15 PM EDT Office Visit Dermatology at [place] [address] [place] [address] Marek Bonilla MD [address], [place] [address] documented as of this encounter Visit Diagnoses Diagnosis Neutropenia, unspecified type documented in this encounter Care Teams Measurement Analyst Relationship Specialty Start Date End Date Deborah Quiroga APRN PCP - General Family Medicine 03/24/16 02/04/23 documented as of this encounter
--- OUTSIDE RECORDS SUMMARY | 2024-04-25 16:18 | XMS_ITS | Encounter Summary ---
Author Organization [facility] Address [facility] [place] [address] Care Team Providers Care Air Brake Worker Name Role Phone Ashley Quirogan Cornelius ANURAG Primary Care Provider [phone] Encounter Details Date Type Department Care Team (Late st Contact Info) Description 03/04/2020 External Results Hematology [place] [address] TherBhumi villela Social History Tobacco Use Types [...] EDT Appointment Hematology [place] [address] 05/12/2024 10:00 AM EDT Office Visit Hematology [place] [address] Markel Borjas MD [facility] [address] [place] [address] 03/01/2025 4:15 PM EDT Office Visit Dermatology at [address] [phone] Marek Bonilla MD [address], [place] [address] documented as of this encounter Procedures Procedure [...] Provider HEMATOLOGY ORDERA BLES Performing Organization Address City/State/[facility] Co de Phone Number [facility] documented in this encounter Visit Diagnoses Not on filedocumented in this encounter Care Teams Air Brake Worker Relationship Specialty Start Date End Date Deborah Quiroga, DIAPHRAGM BUILDER PCP - General Family Medicine 03/24/16 02/04/23 documented as of this encounter
--- OUTSIDE RECORDS SUMMARY | 2024-04-25 16:18 | XMS_ITS | Encounter Summary ---
Author Organization [facility] Address [facility] [place] [address] Care Team Providers Care Drier And Evaporator Operator Name Role Phone Deborah Quiroga ANURAG Primary Care Provider [phone] Encounter Details Date Type Department Care Team (Late st Contact Info) Description 06/18/2017 External Results Hematology [place] [address] Alexandrea Greenwood RN Neutropenia, unspecified type Social [...] AM EDT Appointment Hematology [place] [address] 05/12/2024 10:00 AM EDT Office Visit Hematology [place] [address] Markel Borjas MD [facility] [place] [address] 03/01/2025 4:15 PM EDT Office Visit Dermatology at [address] [address] Marek Bonilla MD [address], [place] [address] documented as of this encounter Procedures Procedure Name Priority Date/Time Associated Diagnosis Comments CBC (WITH DIFF) Routine 06/11/2017 1:19 PM EST Neutropenia, unspecified type COMPREHENSIVE METABOLIC PANEL Routine 06/11/2017 1:19 PM EST Neutropenia, unspecified type documented in this encounter Results * Comprehensive metabolic panel (non-fasting) (06/11/2017 1:19 PM EST) Pathologist [facility] Blood Urea Nitrogen 13 7 - 18 [...] (06/11/2017 1:19 PM EST) Pathologist [facility] White Blood Cell 2.28(EXTER NAL/ABN) 4.4 - [...] in this encounter Care Teams Drier And Evaporator Operator Relationship Specialty Start Date End Date Deborah Quiroga APRN PCP - General Family Medicine 03/24/16 02/04/23 documented as of this encounter
--- OUTSIDE RECORDS SUMMARY | 2024-04-25 16:18 | XMS_ITS | Encounter Summary ---
Author Organization [facility] [place] [address] Care Team Providers Care Community Service Representative Name Role Phone Deborah Quiroga APRN Primary Care Provider [phone] Encounter Details Date Type Department Care Team (Late st Contact Info) Description 06/05/2021 Interpretation Only [address] [address] Deborah Quiroga APRN [address] [phone] Social History Tobacco Use Types Packs/Day Years [...] AM EDT Appointment Hematology [place] [address] 05/12/2024 10:00 AM EDT Office Visit Hematology [place] [address] Markel Borjas MD [facility] [address] [place] [address] 03/01/2025 4:15 PM EDT Office Visit Dermatology at [place] [address] [place] [address] Marek Bonilla MD [address], [place] [address] documented as of this encounter Procedures Procedure Name Priority Date/Time Associated Diagnosis Comments MAMMO SCREENING CAD BILATERAL Routine 06/05/2021 11:42 AM EDT documented in this encounter Results * Mammo Screening Cad Bilateral (06/05/2021 11:42 AM EDT) PT CLASS O DH RAD ADMITDTTM DH RAD PT DH RAD INFO [id number]^EV ERETT^DEBORAH^E DH RAD EXAM DESC MADDSC^SCREEN MAMMO [...] who have questions please contact the health occasional caregiver that requested your imaging first. ? Electronically signed by: Rocael Villatoro MD, [facility] ([phone]), at 06/05/2021 1:27 PM Narrative 06/05/2021 1:27 [...] patients who have questions please contactthe health occasional caregiver that requested your imaging first. Electronically signed by: Rocael Villatoro MD, [facility]([phone]), at 06/05/2021 1:27 PM Deborah Quiroga APRN IMG MAMMO ORDERABLE S documented in this encounter Visit Diagnoses Not on filedocumented in this encounter Care Teams Community Service Representative Relationship Specialty Start Date End Date Deborah Quiroga APRN PCP - General Family Medicine 03/24/16 02/04/23 documented as of this encounter
--- OUTSIDE RECORDS SUMMARY | 2024-04-25 16:18 | XMS_ITS | Encounter Summary ---
Author Organization [facility] Address [facility] [place] [address] Care Team Providers Care Bridge Operator Name Role Phone Deborah Quiroga APRN Primary Care Provider [phone] Encounter Details Date Type Department Care Team (Late st Contact Info) Description 03/01/2020 11:30 AM EDT Office Visit Hematology [place] [address] Patrick Borjas MD [facility] [address] [place] [address] Neutropenia, unspecified type Social History Tobacco Use [...] AM EDT Hematology Outpatient Clinic [facility] Hematology Outpatient Consult Note CC: 60 [...] TOUCH PREP, CLOT SECTION, CORE ??BIOPSY); [OSR# [id number], COLLECTED 06/23/2016, 19 SLIDES]: ?1. 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 Extremities: No edema. Labs: Hgb= 12.4 Ewsk=433 ANC= 2.5 Imaging As above - reviewed [...] AM EDT Appointment Hematology [place] [address] 05/12/2024 10:00 AM EDT Office Visit Hematology [place] [address] Patrick Borjas MD [facility] [address] [place] [address] 03/01/2025 4:15 PM EDT Office Visit Dermatology at [place] [address] [facility] [place] [address] Marek Bonilla MD [address], [address] A DERMATOLOGY [place], [place] [address] documented as of this encounter Visit Diagnoses Diagnosis Neutropenia, unspecified type documented in this encounter Care Teams Bridge Operator Relationship Specialty Start Date End Date Deborah Quiroga APRN PCP - General Family Medicine 03/24/16 02/04/23 documented as of this encounter
--- OUTSIDE RECORDS SUMMARY | 2024-04-25 16:18 | XMS_ITS | Encounter Summary ---
[place] [address] Care Team Providers Care Full Stack Web Developer Name Role Phone Ashley Quirogan Cornelius ANURAG Primary Care Provider [phone] Reason for Visit * Reason Comments Acrochordon Rosacea Encounter Details Date Type Department Care Team (Late st Contact Info) Description 12/05/2020 3:00 PM EDT Office Visit Dermatology at [address] [address] Marek Bonilla MD [address] [facility] [place] [address] Inflamed acrochordon Social History Tobacco Use Types [...] AM EDT Appointment Hematology [place] [address] 05/12/2024 10:00 AM EDT Office Visit [place]ematology [place] [address] Markel Borjas MD [facility] [address] [place] [address] 03/01/2025 4:15 PM EDT Office Visit Dermatology at [place] [address] [place] [address] Marek Bonilla MD [address] [facility], [place] [address] documented as of this encounter Visit Diagnoses Diagnosis Inflamed acrochordon Unspecified hypertrophic and atrophic condition of skin documented in this encounter Care Teams Full Stack Web Developer Relationship Specialty Start Date End Date Deborah Quiroga APRN PCP - General Family Medicine 03/24/16 02/04/23 documented as of this encounter
--- OUTSIDE RECORDS SUMMARY | 2024-04-25 16:18 | XMS_ITS | Encounter Summary ---
[place] [address] Care Team Providers Care Outpatient Clerk Name Role Phone Deborah Quiroga ANURAG Primary Care Provider [phone] Encounter Details Date Type Department Care Team (Late st Contact Info) Description 02/07/2020 Telephone Hematology [place] [address] Ellen Rios RN Social History [...] 02/07/2020 12:59 PM EDT Message received from engineering secretary: Injection/Infusion Referral Services to be provided for pt are: CBC only at [facility]- Pt will go by 02/27 Orders faxed to [phone]). Spoke with pt. She will call [facility] directly to schedule a time that works for her. documented in this encounter Plan of Treatment Upcoming Encounters Date Type Department Care Team (Late Contact Info) Description 05/12/2024 9:00 AM EDT Appointment [place]ology [place] [address] 05/12/2024 10:00 AM EDT Office Visit [place]ematology [place] [address] Markel Borjas MD [facility] [address] HEMATOLOGY [place] [address] 03/01/2025 4:15 PM EDT Office Visit Dermatology at [place] [address] [place] [address] Marek Bonilla MD [address], [place] [address] documented as of this encounter Visit Diagnoses Not on filedocumented in this encounter Care Teams Outpatient Clerk Relationship Specialty Start Date End Date Deborah Quiroga APRN PCP - General Family Medicine 03/24/16 02/04/23 documented as of this encounter
--- OUTSIDE RECORDS SUMMARY | 2024-04-25 16:18 | XMS_ITS | Encounter Summary ---
[place] [address] Care Team Providers Care Director Of Housing Name Role Phone JunaidDeborah APRN Primary Care Provider [phone] Reason for Visit * Reason Comments Follow-up Encounter Details Date Type Department Care Team (Late st Contact Info) Description 01/10/2021 4:30 PM EDT Office Visit Dermatology at [place] [address] [facility] [place] [address] Marek Bonilla MD [address] [facility], [address] DERMATOLOGY [place], [place] [address] Rosacea Social History Tobacco Use Types Packs/Day [...] cutaneous and ocular 2. Previously told by cork grinder that she had corneal tears from [...] 3 refills. Will call this in her [facility] in [place] 3. Continue metronidazole 0.75% gel applying once [...] AM EDT Appointment [place] [address] 05/12/2024 10:00 AM EDT Office Visit [place] [address] Markel Borjas MD [facility] [address] [place] [address] 03/01/2025 4:15 PM EDT Office Visit Dermatology at [place] [address] [facility] [place] [address] Marek Bonilla MD [address], [place] [address] documented as of this encounter Visit Diagnoses Diagnosis Rosacea documented in this encounter Care Teams Director Of Housing Relationship Specialty Start Date End Date Deborah Quiroga, ANURAG PCP - General Family Medicine 03/24/16 02/04/23 documented as of this encounter
--- OUTSIDE RECORDS SUMMARY | 2024-04-25 16:18 | XMS_ITS | Encounter Summary ---
Author Organization [facility] [place] [address] Care Team Providers Care Liquefaction Supervisor Name Role Phone Deborah Quiroga APRN Primary Care Provider [phone] Encounter Details Date Type Department Care Team (Late st Contact Info) Description 06/08/2022 Ancillary Procedure Radiology Library at [facility] [place] [place] [phone] Deborah Quiroga APRN [address] [place] [phone] Social History Tobacco Use Types Packs/Day [...] AM EDT Appointment Hematology [place] [address] 05/12/2024 10:00 AM EDT Office Visit Hematology [place] [address] Markel Borjas MD [facility] HEMATOLOGY [place] [address] 03/01/2025 4:15 PM EDT Office Visit Dermatology at [place] [address] [place] [address] Marek Bonilla MD [address], [address] [place] [address] documented as of this encounter Procedures Procedure Name Priority Date/Time Associated Diagnosis Comments FILM LIBRARY STORAGE ONLY DX SPINE Routine 06/08/2022 12:00 AM EST documented in this encounter Results * Film Library- Storage Only DX Spine (06/08/2022 12:00 AM EST) Narrative [facility] - 06/18/2022 10:57 AM EST This exam is auto-finalizing. It's purpose is for storage only. Deborah Quiroga APRN IMG FILM LIBRARY OR DERABLES Performing Organization Address City/State/[facility] de Phone Number [place], [place] documented in this encounter Visit Diagnoses Not on filedocumented in this encounter Care Teams Liquefaction Supervisor Relationship Specialty Start Date End Date Deborah Quiroga APRN PCP - General Family Medicine 03/24/16 02/04/23 documented as of this encounter
--- OUTSIDE RECORDS SUMMARY | 2024-04-25 16:18 | XMS_ITS | Encounter Summary ---
Author Organization [facility] Address [facility] [place] [address] Care Team Providers Care Group Work Program Aide Name Role Phone Deborah Quiroga APRN Primary Care Provider [phone] Encounter Details Date Type Department Care Team (Latest Contact Info) Description 10/14/2016 - 10/14/2016 11:59 PM EDT Hospital Encounter Radiology Library at [facility] [place] [phone] Alirio Esparza MD Pain Discharge Disposition: Home [...] AM EDT Appointment Hematology [place] [address] 05/12/2024 10:00 AM EDT Office Visit Hematology [place] [address] Markel Borjas MD [facility] [address] HEMAT[place] [address] 03/01/2025 4:15 PM EDT Office Visit Dermatology at [place] [address] [place] [address] Marek Bonilla MD [address], [place] [address] documented as of this encounter Procedures Procedure Name Priority Date/Time Associated Diagnosis Comments FILM LIBRARY STORAGE ONLY DX CHEST Routine 10/14/2016 12:00 AM EDT Pain documented in this encounter Results * Film Library- Storage Only DX Chest (10/14/2016 12:00 AM EDT) Narrative [facility] - 10/14/2016 5:16 PM EDT This exam is for storage only and is auto-finalizing. lAirio Esparza MD IMG FILM LIBRARY OR DERABLES Performing Organization Address City/State/[facility] Co de Phone Number [place], [place] documented in this encounter Visit Diagnoses Diagnosis Pain Generalized pain documented in this encounter Care Teams Group Work Program Aide Relationship Specialty Start Date End Date Deborah Quiroga, PROCEDURAL NURSE PCP - General Family Medicine 03/24/16 02/04/23 documented as of this encounter
--- OUTSIDE RECORDS SUMMARY | 2024-04-25 16:18 | XMS_ITS | Encounter Summary ---
Author Organization [facility] Erika lópezsylvia [place] [address] Care Team Providers Care Automatic Folder Seamer Name Role Phone Deborah Quiroga ANURAG Primary Care Provider [phone] Encounter Details Date Type Department Care Team (Late st Contact Info) Description 11/11/2020 Refill Dermatology at [address] [address] Taylor Malone, BINGO FLOATER Social History Tobacco Use Types Packs/Day Years [...] AM EDT Appointment [place] [address] 05/12/2024 10:00 AM EDT Office Visit [place] [phone] Markel Borjas MD [facility] HEMATOLOGY [place] [address] 03/01/2025 4:15 PM EDT Office Visit Dermatology at [address] [address] Marek Bonilla MD [address], [place] [address] documented as of this encounter Visit Diagnoses Not on filedocumented in this encounter Care Teams Automatic Folder Seamer Relationship Specialty Start Date End Date Deborah Quiroga APRN PCP - General Family Medicine 03/24/16 02/04/23 documented as of this encounter
--- OUTSIDE RECORDS SUMMARY | 2024-04-25 16:18 | XMS_ITS | Encounter Summary ---
Author Organization [facility] Address [facility] [place] [address] Care Team Providers Care Patient Safety Attendant Name Role Phone Junaid Deborah Shields APRN Primary Care Provider [phone] Reason for Visit * Reason Comments Schedule Office Case Pain right leg Encounter Details Date Type Department Care Team (Late st Contact Info) Description 12/11/2016 9:00 AM EDT Office Visit Hematology [place] [address] Markel Borjas MD [facility] [address] [place] [address] Neutropenia, unspecified type Social History Tobacco Use [...] AM EDT Hematology Outpatient Clinic [facility] [...] TOUCH PREP, CLOT SECTION, CORE ??BIOPSY); [OSR# [id number], COLLECTED 06/23/2016, 19 SLIDES]: ?1. ??Normocellular marrow [...] a clonal lymphoproliferative or myeloproliferative disorder (OSR# [id number]) Chromosome analysis on the marrow aspirate revealed [...] intact. Extremities: No edema. Labs: Hgb= 13 Xmxa=840 ANC= 0.5 Imaging As above - reviewed [...] AM EDT Appointment Hematology [place] [address] 05/12/2024 10:00 AM EDT Office Visit Hematology [place] [address] Markel Borjas MD [facility] [address] [place] [address] 03/01/2025 4:15 PM EDT Office Visit Dermatology at [place] [address] [place] [address] Marek Bonilla MD [address] [facility] [place] [address] documented as of this encounter Results * [...] type documented in this encounter Care Teams Patient Safety Attendant Relationship Specialty Start Date End Date Deborah Quiroga, DIRECTOR ENERGY PCP - General Family Medicine 03/24/16 02/04/23 documented as of this encounter
--- OUTSIDE RECORDS SUMMARY | 2024-04-25 16:18 | XMS_ITS | Encounter Summary ---
Author Organization [facility] [place] [address] Care Team Providers Care Leasing Director Name Role Phone Deborah Quiroga APRN Primary Care Provider [phone] Encounter Details Date Type Department Care Team (Late st Contact Info) Description 06/05/2021 Interpretation Only [address] [address] Deborah Quiroga APRN [address] [phone] Social History Tobacco Use Types Packs/Day Years [...] AM EDT Appointment Hematology [place] [address] 05/12/2024 10:00 AM EDT Office Visit Hematology [place] [address] Markel Borjas MD [facility] [address] [place] [address] 03/01/2025 4:15 PM EDT Office Visit Dermatology at [place] [address] [place] [address] Marek Bonilla MD [address], [place] [address] documented as of this encounter Procedures Procedure Name Priority Date/Time Associated Diagnosis Comments MAMMO SCREENING CAD AND CATRACHITO BILATERAL Routine 06/05/2021 11:42 AM EDT documented in this encounter Results * Mammo Screening Cad and Catrachito Bilateral (06/05/2021 11:42 AM EDT) PT CLASS O DH RAD ADMITDTTM DH RAD PT DH RAD INFO [id number]^EVERET T^DEBORAH^E DH RAD EXAM DESC MADDSCTO^BREAST SCREEN [...] have questions please contact the health manager long term care that requested your imaging first. ? [...] who have questions please contactthe health manager long term care that requested your imaging first. Deborah Quiroga APRN IMG MAMMO ORDERABLE S documented in this encounter Visit Diagnoses Not on filedocumented in this encounter Care Teams Leasing Director Relationship Specialty Start Date End Date Deborah Quiroga APRN PCP - General Family Medicine 03/24/16 02/04/23 documented as of this encounter
--- OUTSIDE RECORDS SUMMARY | 2024-04-25 16:18 | XMS_ITS | Encounter Summary ---
Author Organization [facility] Address [facility] [place] [address] Care Team Providers Care Laborer/Key Man Name Role Phone Deborah Quiroga APRN Primary Care Provider [phone] Encounter Details Date Type Department Care Team (Late st Contact Info) Description 06/18/2017 11:00 AM EST Office Visit Hematology [place] [address] aMrkel Borjas MD [facility] DR HEMATOLOGY [place] [address] Neutropenia, unspecified type Social History Tobacco Use [...] 06/18/2017 11:00 AM EST Hematology Outpatient Clinic [facility] Hematology Outpatient Consult Note CC: [...] CT Surgery (Dr. Esparza) and Cardiology (Dr. Escobdeo) over the past few months with severe [...] TOUCH PREP, CLOT SECTION, CORE ??BIOPSY); [OSR# [id number], COLLECTED 06/23/2016, 19 SLIDES]: ?1. ??Normocellular marrow [...] a clonal lymphoproliferative or myeloproliferative disorder (OSR# [id number]) Chromosome analysis on the marrow aspirate revealed [...] working the same job and participating in [employer]. Past Medical/Surgical History: 1. Leukopenia -element of neutropenia, as noted above 2. Aortic Stenosis -severe -AVR surgery 3. Hypercholesterolemia 4. Depression 5. Hypertension 6. 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 Extremities: No edema. Labs: Hgb= 13 Snzm=917 ANC= 0.6 Imaging As above - reviewed [...] Hematology [place] [address] 05/12/2024 10:00 AM EDT Office Visit Hematology [place] [address] Markel Borjas MD [facility] [address] HEMATOLOGY [place] [address] 03/01/2025 4:15 PM EDT Office Visit Dermatology at [place] [address] [place] [address] Marek Bonilla MD [address], [place] [address] documented as of this encounter Visit Diagnoses Diagnosis Neutropenia, unspecified type documented in this encounter Care Teams Laborer/Key Man Relationship Specialty Start Date End Date Deborah Quiroga APRN PCP - General Family Medicine 03/24/16 02/04/23 documented as of this encounter
--- OUTSIDE RECORDS SUMMARY | 2024-04-25 16:18 | XMS_ITS | Encounter Summary ---
Author Organization [facility] Address [facility] [place] [address] Care Team Providers Care Psychology Assistant Name Role Phone Deborah Quiroga APRN Primary Care Provider [phone] Encounter Details Date Type Department Care Team (Late st Contact Info) Description 12/04/2016 External Results Hematology [place] [address] Teresa Dodson RN Social History Tobacco Use [...] AM EDT Appointment Hematology [place] [address] 05/12/2024 10:00 AM EDT Office Visit Hematology [place] [address] Markel Borjas MD [facility] DR HEMATOLOGY [place] [address] 03/01/2025 4:15 PM EDT Office Visit Dermatology at [address] [phone] Marek Bonilla MD [address], [place] [address] documented as of this encounter Procedures Procedure Name Priority Date/Time Associated Diagnosis Comments CBC (WITH DIFF) Routine 12/03/2016 11:35 AM EDT COMPREHENSIVE METABOLIC PANEL Routine 12/03/2016 11:35 AM EDT documented in this encounter Results * (ABNORMAL) Comprehensive metabolic panel (non-fasting) (12/03/2016 11:35 AM EDT) Glucose 85([facility]) Blood Urea Nitrogen 11([facility]) Creatinine 0.93(Exte rnal Lab) Sodium 140(Exter nal Lab) Potassium 4.2(Exter nal Lab) Chloride 104(Exter nal Lab) Calcium 10.0(Exte rnal Lab) Protein, Total 8.1(Exter nal Lab) Albumin 3.5(Exter nal Lab) Bilirubin, Total 0.25(Exte rnal Lab) Alkaline Phosphatase 96([facility]) Aspartate Aminotransferase 18([facility]) Alanine Aminotransferase 21([facility]) Blood specimen (specimen) 12/03/2016 11:35 AM EDT Historical Provider CHEMISTRY ORDERAB LES * (ABNORMAL) CBC (with Diff) (12/03/2016 11:35 AM EDT) White Blood Cell 1.61(EXTER NAL/ABN) 4.4 - 10.8 Hemoglobin 13.0(Exter nal Lab) Hematocrit 39.8(Exter nal Lab) Platelet 248([facility]) Neutrophil Absolute (ANC) - Automated 0.5(CLOUD AUTOMATION TESTER AL/ABN) Blood specimen (specimen) 12/03/2016 11:35 AM EDT Historical Provider HEMATOLOGY ORDERA BLES documented in this encounter Visit Diagnoses Not on filedocumented in this encounter Care Teams Psychology Assistant Relationship Specialty Start Date End Date Deborah Quiroga, ANURAG PCP - General Family Medicine 03/24/16 02/04/23 documented as of this encounter
--- OUTSIDE RECORDS SUMMARY | 2024-04-25 16:18 | XMS_ITS | Encounter Summary ---
Author Organization [facility] Address [facility] [place] [address] Care Team Providers Care Greenhouse Superintendent Name Role Phone Junaid Deborah Shields APRN Primary Care Provider [phone] Encounter Details Date Type Department Care Team (Latest Contact Info) Description 06/22/2022 10:00 AM EST Office [place] [phone] Raymond Loredo MD [facility] [place] [address] Raynaud's phenomenon without gangrene; Positive FRANCISCO (antinuclear [...] can be done locally or here at [facility] that the current time is not particularly [...] for surgery by Dr. Rogers here at [facility]. In addition to painful dysesthesias in her [...] over radiocarpal or ulnocarpal joints. Hands: Normal sliver chopper and claw. SJC/TJC 0/0. Knees: Decreased flexion [...] AM EDT Appointment Hematology [place] [address] 05/12/2024 10:00 AM EDT Office Visit Hematology [place] [address] Markel Borjas MD [facility] DR HEMATOLOGY [place] [address] 03/01/2025 4:15 PM EDT Office Visit Dermatology at [place] [address] [place] [address] Marek Bonilla MD [address] [facility] [place] [address] documented as of this encounter Visit Diagnoses Diagnosis Raynaud's phenomenon without gangrene Positive FRANCISCO (antinuclear antibody) Other and unspecified nonspecific immunological findings Primary osteoarthritis involving multiple joints Cervical disc disorder at C6-C7 level with radiculopathy documented in this encounter Care Teams Greenhouse Superintendent Relationship Specialty Start Date End Date Deborah Quiroga APRN PCP - General Family Medicine 03/24/16 02/04/23 documented as of this encounter
--- OUTSIDE RECORDS SUMMARY | 2024-04-25 16:18 | XMS_ITS | Encounter Summary ---
[place] [address] Care Team Providers Care Broadcast Supervisor Name Role Phone Junaid Deborah Shields APRN Primary Care Provider [phone] Reason for Visit * Reason Comments Annual Exam Encounter Details Date Type Department Care Team (Late st Contact Info) Description 01/09/2022 3:15 PM EDT Office Visit Dermatology at [address] [address] Marek Bonilla MD [address] [facility], QU[address] A DERMATOLOGY [place], [place] [address] Rosacea Social History Tobacco Use Types Packs/Day [...] cutaneous and ocular 2. Previously told by baby attendant that she had corneal tears from [...] refills. We will call this into her [facility] in [place] 3. Continue metronidazole 0.75% gel applying every [...] AM EDT Appointment Hematology [place] [address] 05/12/2024 10:00 AM EDT Office Visit Hematology [place] [address] Markel Borjas MD [facility] [address] [place] [address] 03/01/2025 4:15 PM EDT Office Visit Dermatology at [place] [address] [facility] [place] [address] Marek Bonilla MD [address] [facility], [place] [address] documented as of this encounter Visit Diagnoses Diagnosis Rosacea documented in this encounter Care Teams Broadcast Supervisor Relationship Specialty Start Date End Date Deborah Quiroga APRN PCP - General Family Medicine 03/24/16 02/04/23 documented as of this encounter
--- OUTSIDE RECORDS SUMMARY | 2024-04-25 16:18 | XMS_ITS | Encounter Summary ---
[place] [address] Care Team Providers Care Bone Cooking Operator Name Role Phone Ashley Quirogan Corn[place] ANURAG Primary Care Provider [phone] Reason for Visit * Reason Comments Skin Check Encounter Details Date Type Department Care Team (Late st Contact Info) Description 11/11/2020 10:45 AM EDT Office Visit Dermatology at [address] [place] [address] Marek Bonilla MD [address] [facility], QU[address] A DERMATOLOGY [place], [place] [address] Rosacea; Acrochordon Social History Tobacco Use Types [...] Discussed the possibility of getting this through [facility] or from the [facility] pharmacy if necessary. She has not yet [...] AM EDT Appointment Hematology [place] [address] 05/12/2024 10:00 AM EDT Office Visit [place]ematology [place] [address] Markel Borjas MD [facility] DR [place] [address] 03/01/2025 4:15 PM EDT Office Visit Dermatology at [place] [address] [facility] [place] [address] Marek Bonilla MD [address] [facility], [place] [address] documented as of this encounter Visit Diagnoses Diagnosis Rosacea Acrochordon Unspecified hypertrophic and atrophic condition of skin documented in this encounter Care Teams Bone Cooking Operator Relationship Specialty Start Date End Date Deborah Quiroga APRN PCP - General Family Medicine 03/24/16 02/04/23 documented as of this encounter
--- OUTSIDE RECORDS SUMMARY | 2024-04-25 16:18 | XMS_ITS | Encounter Summary ---
Author Organization [facility] Address [facility] Erika lópezsyl[place] [address] Care Team Providers Care Senior Storage Administrator Name Role Phone Deborah Quiroga APRN Primary Care Provider [phone] Encounter Details Date Type Department Care Team (Late st Contact Info) Description 01/09/2022 Refill Dermatology at [address] [address] Lupe Connor RN Social History [...] AM EDT Appointment Hematology [place] [address] 05/12/2024 10:00 AM EDT Office Visit Hematology [place] [address] Markel Borjas MD [facility] [address] HEMATOLOGY [place] [address] 03/01/2025 4:15 PM EDT Office Visit Dermatology at [address] [address] Marek Bonilla MD [address] [facility] [facility] [address], [place] [address] documented as of this encounter Visit Diagnoses Not on filedocumented in this encounter Care Teams Senior Storage Administrator Relationship Specialty Start Date End Date Deborah Quiroga APRN PCP - General Family Medicine 03/24/16 02/04/23 documented as of this encounter
--- OUTSIDE RECORDS SUMMARY | 2024-04-25 16:18 | XMS_ITS | Encounter Summary ---
[place] [address] Care Team Providers Care Forensic Document Examiner Name Role Phone Junaid Deborah Shields APRN Primary Care Provider [phone] Reason for Visit * Reason Onset Date Comments Results 12/03/2016 Encounter Details Date Type Department Care Team (Late Contact Info) Description 12/03/2016 Telephone Hematology [place] [address] Yudith Valentine RN Results Social [...] received call from Maddy at [facility] reporting critical WBC at 1.61, and ANC of 0.5. She will fax the full results to this office for review nurse notified DR Borjas of above results documented in this encounter Plan of Treatment Upcoming Encounters Date Type Department Care Team (Late st Contact Info) Description 05/12/2024 9:00 AM EDT Appointment Hematology [place] [address] 05/12/2024 10:00 AM EDT Office Visit Hematology [place] [address] Markel Borjas MD [facility] DR HEMATOLOG[place] [address] 03/01/2025 4:15 PM EDT Office Visit Dermatology at [place] [address] [facility] [place] [address] Marek Bonilla MD [address], [address] Katherine [place] [address] documented as of this encounter Visit Diagnoses Not on filedocumented in this encounter Care Teams Forensic Document Examiner Relationship Specialty Start Date End Date Deborah Quiroga APRN PCP - General Family Medicine 03/24/16 02/04/23 documented as of this encounter
--- OUTSIDE RECORDS SUMMARY | 2024-04-25 16:18 | XMS_ITS | Encounter Summary ---
Author Organization [facility] [place] [address] Care Team Providers Care Eye Clinic Manager Name Role Phone Ashley Quirogazac Shields APRN Primary Care Provider [phone] Encounter Details Date Type Department Care Team [...] AM EDT Appointment Hematology [place] [address] 05/12/2024 10:00 AM EDT Office Visit [place] [address] Markel Borjas MD [facility] [place] [address] 03/01/2025 4:15 PM EDT Office Visit Dermatology at [place] [address] [facility] [place] [address] Marek Bonilla MD [address] [facility] Katherine [place] [address] documented as of this encounter Visit Diagnoses Not on filedocumented in this encounter Care Teams Eye Clinic Manager Relationship Specialty Start Date End Date Deborah Quiroga APRN PCP - General Family Medicine 03/24/16 02/04/23 documented as of this encounter
--- OUTSIDE RECORDS SUMMARY | 2024-04-25 16:18 | XMS_ITS | Encounter Summary ---
[place] [address] Care Team Providers Care Greens Planter Name Role Phone Deborah Quiroga APRN Primary Care Provider [phone] Reason for Referral * Consultation (Routine) - Closed Specialty Diagnoses / Procedures Referred By Contac t Referred To Contact Rheumatology Diagnoses Positive FRANCISCO (antinuclear antibody) Arthralgia, unspecified joint Sandy Wu APRN [address] [place] [address] [facility] [address] [place] [phone] Referral ID Status Reason Start Date Expiration Date V isits Requested Visits Authorized [id number] Closed Consult, Test & Treat PCP Updated and/or Approved 01/01/2022 01/01/2023 6 6 Encounter Details Date Type Department Care Team (Latest Contact Info) Description 01/01/2022 Transcribe Orders eDH Incoming Referrals [phone] Sandy Wu APRN [address] [place], [place] [phone] Positive FRANCISCO (antinuclear antibody); Arthralgia, unspecified joint [...] AM EDT Appointment Hematology [place] [address] 05/12/2024 10:00 AM EDT Office Visit Hematology [place] [address] Markel Borjas MD [facility] [address] HEMATOLOGY [place] [address] 03/01/2025 4:15 PM EDT Office Visit Dermatology at [place] [address] [facility] [place] [address] Marek Bonilla MD [address] [place] [address] Scheduled Referrals Name Type Priority Associated Diagnoses Orde r Schedule Referral to Rheumatology Outpatient Referral Routine Positive FRANCISCO (antinuclear antibody) Arthralgia, unspecified joint Ordered: 01/01/2022 documented as of this encounter Visit Diagnoses Diagnosis Positive FRANCISCO (antinuclear antibody) Other and unspecified nonspecific immunological findings Arthralgia, unspecified joint documented in this encounter Care Teams Greens Planter Relationship Specialty Start Date End Date Deborah Quiroga APRN PCP - General Family Medicine 03/24/16 02/04/23 documented as of this encounter
--- OUTSIDE RECORDS SUMMARY | 2024-04-25 16:18 | XMS_ITS | Encounter Summary ---
Author Organization [facility] Address [facility] [place] [address] Care Team Providers Care Car Packer Name Role Phone Deborah Quiroga ANURAG Primary Care Provider [phone] Encounter Details Date Type Department Care Team (Late Contact Info) Description 07/21/2017 Orders Only Hematology [place] [address] Alexandrea [place] RN Other neutropenia Social History [...] Appointment Hematology [place] [address] 05/12/2024 10:00 AM EDT Office Visit Hematology [place] [address] Markel Bojras MD [facility] HEMATOLOGY [place] [address] 03/01/2025 4:15 PM EDT Office Visit Dermatology at [address] [address] Marek Bonilla MD [address], [place] [address] documented as of this encounter Visit Diagnoses Diagnosis Other neutropenia documented in this encounter Care Teams Car Packer Relationship Specialty Start Date End Date eDborah Quiroga APRN PCP - General Family Medicine 03/24/16 02/04/23 documented as of this encounter
--- OUTSIDE RECORDS SUMMARY | 2024-04-25 16:18 | XMS_ITS | Encounter Summary ---
[place] [address] Care Team Providers Care Paunch Trimmer Name Role Phone Junaid, Deborah Shields APRN Primary Care Provider [phone] Encounter Details Date Type Department Care Team (Late st Contact Info) Description 10/20/2016 11:20 AM EDT Office Visit [place] [phone] Alirio Esparza MD S/P AVR Social History [...] all of her postoperative tests done at [facility]. Her echo shows a well-seated valve. Her EF, for some reason, was read as in the 45% to 50% range. She had a normal EF to start. I think that will need to be repeated at [facility]. She has no perivalve [...] should continue to see Dr. Burrell, her salesperson corsets at [facility]. cc: Dr. Burrell documented in this encounter Plan of Treatment Upcoming Encounters Date Type Department Care Team (Late st Contact Info) Description 05/12/2024 9:00 AM EDT Appointment Hematology [place] [address] 05/12/2024 10:00 AM EDT Office Visit Hematology [place] [address] Markel Borjas MD [facility] [place] [address] 03/01/2025 4:15 PM EDT Office Visit Dermatology at [place] [address] [place] [address] Marek Bonilla MD [address], [place] [address] documented as of this encounter Visit Diagnoses Diagnosis S/P AVR Heart valve replaced by other means documented in this encounter Care Teams Paunch Trimmer Relationship Specialty Start Date End Date Deborah Quiroga APRN PCP - General Family Medicine 03/24/16 02/04/23 documented as of this encounter
--- OUTSIDE RECORDS SUMMARY | 2024-04-25 16:18 | XMS_ITS | Encounter Summary ---
Author Organization [facility] [place] [address] Care Team Providers Care Party Director Name Role Phone Deborah Quiroga APRN Primary Care Provider [phone] Encounter Details Date Type Department Care Team (Late st Contact Info) Description 06/05/2021 Interpretation Only [address] [address] Deborah Quiroga APRN [address] [phone] Social History Tobacco Use Types Packs/Day Years [...] AM EDT Appointment Hematology [place] [phone] 05/12/2024 10:00 AM EDT Office Visit Hematology [place] [address] Markel Borjas MD [facility] [address] [place] [address] 03/01/2025 4:15 PM EDT Office Visit Dermatology at [place] [address] [place] [address] Marek Bonilla MD [address], [place] [address] documented as of this encounter Procedures Procedure Name Priority Date/Time Associated Diagnosis Comments DXA CENTRAL SPINE, HIP, AND/OR WHOLE BODY (GENERIC) Routine 06/05/2021 11:58 AM EDT documented in this encounter Results * DXA Central Spine, Hip, and/or Whole Body (Generic) (06/05/2021 11:58 AM EDT) PT CLASS O RAD ADMITDTTM RAD PT RAD INFO [id number]^E VERETT^DEBORAH ^E RAD EXAM DESC XDXAC^DEXA SCAN [...] questions please contact the health critical care clinical nurse specialist that requested your imaging first. ? Electronically signed by: Rocael Villatoro MD, [facility] ([phone]), at 06/05/2021 12:00 PM Narrative 06/05/2021 12:00 [...] have questions please contactthe health critical care clinical nurse specialist that requested your imaging first. Electronically signed by: Rocael Villatoro MD, [facility]([phone]), at 06/05/2021 12:00 PM Deborah LLAMAS DEXA ORDERABLES documented in this encounter Visit Diagnoses Not on filedocumented in this encounter Care Teams Party Director Relationship Specialty Start Date End Date Deborah Quiroga APRN PCP - General Family Medicine 03/24/16 02/04/23 documented as of this encounter
--- OUTSIDE RECORDS SUMMARY | 2024-04-25 16:19 | XMS_ITS | Encounter Summary ---
Author Organization [facility] Address [facility] [place] [address] Care Team Providers Care Self Propelled Hot Mix Roller Operator Name Role Phone Deborah Quiroga ANURAG Primary Care Provider [phone] Encounter Details Date Type Department Care Team (Late st Contact Info) Description 07/31/2016 Orders Only H[place] [phone] Alexandrea [place] RN Neutropenia, unspecified type Social [...] AM EDT Appointment Hematology [place] [address] 05/12/2024 10:00 AM EDT Office Visit Hematology [place] [address] Markel Borjas MD [facility] [place] [address] 03/01/2025 4:15 PM EDT Office Visit Dermatology at [address] [address] Marek Bonilla MD [address], [place] [address] documented as of this encounter Results * [...] type documented in this encounter Care Teams Self Propelled Hot Mix Roller Operator Relationship Specialty Start Date End Date Deborah Quiroga APRN PCP - General Family Medicine 03/24/16 02/04/23 documented as of this encounter
--- OUTSIDE RECORDS SUMMARY | 2024-04-25 16:19 | XMS_ITS | Encounter Summary ---
Author Organization [facility] Address [facility] [place] [address] Care Team Providers Care Blender Conveyor Operator Name Role Phone Ashley Quirogan Cornelius ANURAG Primary Care Provider [phone] Encounter Details Date Type Department Care Team (Late st Contact Info) Description 07/13/2016 External [place] [phone] Provider, Scanning Social History Tobacco Use Types [...] AM EDT Appointment Hematology [place] [address] 05/12/2024 10:00 AM EDT Office Visit [place]ematology [place] [address] Markel Borjas MD [facility] [address] HEMATOLOGY [place] [address] 03/01/2025 4:15 PM EDT Office Visit Dermatology at [place] [address] [facility] [place] [address] Marek Bonilla MD [address], [place] [address] documented as of this encounter Procedures Procedure Name Priority Date/Time Associated Diagnosis Comments SURGICAL PATHOLOGY SCAN Routine 07/13/2016 documented in this encounter Results * Scan Doc: Surgical Pathology (07/13/2016) Nitesh Pina Jr., MD MEDIA MGR SCAN EXT O RDR/RSLT documented in this encounter Visit Diagnoses Not on filedocumented in this encounter Care Teams Blender Conveyor Operator Relationship Specialty Start Date End Date Deborah Quiroga APRN PCP - General Family Medicine 03/24/16 02/04/23 documented as of this encounter
--- OUTSIDE RECORDS SUMMARY | 2024-04-25 16:19 | XMS_ITS | Encounter Summary ---
[place] [address] Care Team Providers Care Alarm Mechanic Name Role Phone Junaid, Deborah Shields APRN Primary Care Provider [phone] Reason for Visit * Auth/Cert Specialty Diagnoses / Procedures Referred By Crispin t Referred To Contact Diagnoses Aortic stenosis Procedures PRO REPLACE AORT VALV, PROSTH VALV @REPLACE AORTIC VALVE, OPEN, W\CPB, W\PROSTHETIC VALVE (WRVU 41.32) Referral ID Status Reason Start Date Expiration Date Visits Re quested Visits Authorized [id number] 1 1 Encounter Details Date Type Department Care Team (Late st Contact Info) Description 09/21/2016 7:25 AM EST Anesthesia Event [place] [address] Luis Enrique Quarles MD [facility] [place] [address] Henrik Cooper MD [facility] [place] [address] Anesthesia Record Procedure Summary Procedure Name Responsible [...] 0819 Sternotomy 0844 CV Bypass init 1009 Hospital Superintendent 1014 An Clamp Remove 1031 CP Bypass [...] Tube 09/21/16 (#28 angled chest tube to [place]: left: pericardial); Left; 09/22/16; 1119 09/21/16 0000 by Toshia Alejandre RN 09/22/16 1119 by Vero Bonilla RN Chest Tube 09/21/16 (#28 straig ht chest tube to [place]; right: mediastinal'); Right; mediastinum; 09/22/16; 1118 09/21/16 0000 by Toshia Alejandre RN 09/22/16 1118 by Vero Bonilla RN (RETIRED) Peripheral IV Line - Single Lumen 09/21/16; 0648; metacarpal vein (top of hand), left; [id number] catheter system; 20 gauge; valdo Arteaga; 09/23/16; [...] Cooper MD - 09/21/2016 6:50 PM EST [facility] Department of Anesthesiology Post-procedure Note Patient: Purnima [...] Anesthesia Providers: Anesthesiologist: Luis Enrique Quarles MD Manager Privacy: Henrik Cooper MD Last (1hr) Vitals: BP Temp 36.1 ??C (97 ??F) (09/21/16 1800) Pulse 79 (09/21/16 1800) Resp 11 (09/21/16 1800) SpO2 98 % (09/21/16 1800) Patient Location: [facility] Level of Consciousness: Sedated (Pharmacologic/Intentional) [...] AM EDT Appointment Hematology [place] [address] 05/12/2024 10:00 AM EDT Office Visit Hematology [place] [address] Markel Borjas MD [facility] [address] [place] [address] 03/01/2025 4:15 PM EDT Office Visit Dermatology at [place] [address] [place] [address] Marek Bonilla MD [address] [place] [address] documented as of this encounter Visit Diagnoses [...] mg documented in this encounter Care Teams Alarm Mechanic Relationship Specialty Start Date End Date Deborah Quiroga APRN PCP - General Family Medicine 03/24/16 02/04/23 documented as of this encounter
--- OUTSIDE RECORDS SUMMARY | 2024-04-25 16:19 | XMS_ITS | Encounter Summary ---
Author Organization [facility] [place] [address] Care Team Providers Care Geospatial Developer Name Role Phone Deborah Quiroga ANURAG Primary Care Provider [phone] Encounter Details Date Type Department Care Team (Late st Contact Info) Description 06/16/2016 Orders Only Hematology [place] [address] Nitesh Pina Jr., MD [facility] [address] [place]AT[place] [address] Cyclical neutropenia Social History Tobacco Use Types [...] AM EDT Appointment Hematology [place] [address] 05/12/2024 10:00 AM EDT Office Visit Hematology [place] [address] [facility] [address] [place] [address] 03/01/2025 4:15 PM EDT Office Visit Dermatology at [place] [address] [place] [address] Marek Bonilla MD [address], [place] [address] documented as of this encounter Visit Diagnoses Diagnosis Cyclical neutropenia Cyclic neutropenia documented in this encounter Care Teams Geospatial Developer Relationship Specialty Start Date End Date Deboarh Quiroga APRN PCP - General Family Medicine 03/24/16 02/04/23 documented as of this encounter
--- OUTSIDE RECORDS SUMMARY | 2024-04-25 16:19 | XMS_ITS | Encounter Summary ---
[place] [address] Care Team Providers Care Information Writer Name Role Phone Ashley Quirogazac Shields APRN Primary Care Provider [phone] Reason for Visit * Auth/Cert Specialty Diagnoses / Procedures Referred By Crispin t Referred To Contact Diagnoses Aortic stenosis Procedures PRO REPLACE AORT VALV, PROSTH VALV @REPLACE AORTIC VALVE, OPEN, W\CPB, W\PROSTHETIC VALVE (WRVU 41.32) Referral ID Status Reason Start Date Expiration Date Visits Re quested Visits Authorized [id number] 1 1 Encounter Details Date Type Department Care Team (Late st Contact Info) Description 09/21/2016 7:30 AM EST - 09/21/2016 12:04 PM EST Surgery [place] [address] Alirio Esparza MD @REPLACE AORTIC VALVE, OPEN, [...] Patient Age: 61 y.o. Birthdate: 1955 Language: Vietnamese Race: White Ethnicity: Not nor Admit Date: 09/21/2016 Discharge Date: 09/25/2016 Attending Physician: Alirio Esparza MD Follow-up Recommendations for Providers: Please continue routine management of cardiovascular risk factors including blood pressure, lipids,glucose, etc. Please note any changes to medications. Patient to follow-up with PCP, Deborah Quiroga APRN, in 1-2 weeks. Patient to follow-up with [facility], Dr. Antelmo Burrell, in two weeks. Patient to follow-up with Cardiac Surgery, Dr. Alirio Esparza, to be scheduled for before 10/19/2016, with CXR, EKG, and Echo. Inpatient Provider Contact Information: [facility] [place] of [place]iac [place] [facility] [place] [address] FAX [phone] Discharge Diagnoses (Hospital Problems) Primary Diagnoses: Secondary [...] 41.32) performed by Alirio Esparza MD at [facility] MA[facility] OR ??? Pro aortoplas for supravalv sten N/A 09/21/2016 @AORTOPLASTY FOR SUPRAVALVULAR STENOSIS (WRVU 29.33) performed by Alirio Esparza MD at [facility] MA[facility] OR Prior [...] Hospital Course: Purnima Thacker was admitted to [facility] on 09/21/2016 via the Same Day [...] Alirio Esparza and/or the Cardiac Surgery Physician Ld Teacher Team may be reached at . Antibiotic prophylaxis: You will need to take antibiotics prior to many invasive tests and treatments, such as dental cleaning, which should be done every 6 months. Your primary care physician or your dentist can prescribe this medication. Please refer to the card with the [employer] [employer] Guidelines for more information. You have been provided with 3 copies of this card. Keep one for your self. Give one to your primary care physician and one to your dentist. Please refer to the [place] [employer] Guidelines for more information. Good [...] Dr. Alirio Jones. You may use a [place] Track or treadmill but avoid any pulling [...] friends, go to a movie, go to yazidi, etc. Heavy activities: No hunting, skiing, jogging, [...] should resume a low fat, low cholesterol, [place] [employer] Diet. Driving: No driving until [...] outpatient Phase 2 Cardiac Rehabilitation at [facility]. The patient agrees to a referral to this program. The referral will be sent at discharge and the patient should be contacted by the program within 1- 2 weeks from discharge. Future Appointments and Orders Future Appointments Provider Department Dept Phone 11/20/2016 11:30 AM Markel Borjas MD [facility] [phone] Future Orders Complete By Expires Echocardiogram Transthoracic([facility]) [UER197 Custom] 10/18/2016 (Approximate) 09/18/2017 Process Instructions: If the Echocardiogram is to be PERFORMED in a DH location other than [place]--STOP and order [id number], Echocardiogram South/External. Scheduling Instructions: Questions: Is a Bubble Study requested?: No Does the patient have Congenital Heart Disease?: No Does patient require sedation?: None GA rationale: Should this service be billed to the research sponsor?: EKG 12 Lead [EKG1 Custom] 10/18/2016 (Approximate) 09/25/2017 Process Instructions: Scheduling Instructions: Questions: Which DH location will this be performed?: [place] Is a rhythm strip needed?: No If EKG Reason is Pre-op Evaluation, indicate diagnosis for surgery.: Should this service be billed to the research sponsor?: XR Chest PA & Lateral (Generic) [[id number] Custom] 10/18/2016 (Approximate) 09/25/2017 Process Instructions: Scheduling Instructions: Questions: Where will study be performed?: [facility]- Radiology Portable exam?: No Reason for exam and clinical history: s/p AVReplacement, patch annuloplasty 1 month f/u Other pertinent information: Stat read required?: Date of injury if applicable: Requested Time: Referral to Cardiac Rehab [LXG384 Custom] As directed Process Instructions: If no progress note charted, please enter Clinical details in comments. Scheduling Instructions: Questions: My question or request is: s/p AVR. Cardiac rehab at [facility] Referral to Home Health - at DISCHARGE [PVE3052 CPT(R)] As directed Process Instructions: Scheduling Instructions: Comments: DOCUMENTATION FOR VNA SERVICES (INCLUDING THOSE PATIENTS WITH MEDICARE COVERAGE REQUIRING HOME VNA SERVICES AND/OR HOSPICE SERVICES) PATIENT'S LOCATION: Purnimakayr Gallego[address] [address] (home) No relevant phone numbers on file. Fugitive Investigator's Name: self In discussion with the attending physician, it is certified that this patient is under their care and that they, or a Nurse Practitioner, or Physician Ld Teacher who is working directly with them, [...] for services as follows: HOME HEALTH AGENCY: [facility] PHONE: [phone] FAX: [phone] RN orders: Cardiopulmonary assessment, incisional assessment, assess [...] issues please call the Cardiac SurgeryOffice at [phone] FOR MEDICARE ONLY: In discussion with the [facility] [place] [address] FAX [phone] Date: 09/25/2016 CC: ANURAG Alford Caryn E, APRN [address] [place] [address] documented in this encounter Discharge Instructions * [...] Alirio Esparza and/or the Cardiac Surgery Physician Ld Teacher Team may be reached at . Antibiotic prophylaxis: You will need to take antibiotics prior to many invasive tests and treatments, such as dental cleaning, which should be done every 6 months. Your primary care physician or your dentist can prescribe this medication. Please refer to the card with the [place] [employer] Guidelines for more information. You have been provided with 3 copies of this card. Keep one for your self. Give one to your primary care physician and one to your dentist. Please refer to the [place] [employer] Guidelines for more information. Good [...] Dr. Alirio Jones. You may use a [place] Track or treadmill but avoid any pulling [...] friends, go to a movie, go to yazidi, etc. Heavy activities: No hunting, skiing, jogging, [...] should resume a low fat, low cholesterol, [place] [employer] Diet. Driving: No driving until [...] outpatient Phase 2 Cardiac Rehabilitation at [facility]. The patient agrees to a referral to [...] PM EST Cardiac Surgery Progress Note: ID: [id number] S/p AVR, patch aortoplasty POD#2. PMH of [...] Gas) No results found for: PHART, PO2ART, WOO5CFA Assessment/Plan: TPW out this am. (+) BM. [...] Signed: Crispin Aranda PA-C 09/24/2016 Team pager: [phone]; [phone] after 5pm [facility] Section of Cardiac Surgery * Leonor Henson S, PATROL AGENT - 09/23/2016 10:48 AM EST Cardiac Surgery Progress Note: ID: [id number] s/p AVR, patch aortoplasty POD#2. PMH of [...] Gas) No results found for: PHART, PO2ART, [id number] Assessment/Plan: s/p AVR, patch aortoplasty POD#2. PMH of Neutropenia, HLD, HTN, Depression, obesity, . Transferred from [facility] yesterday and doing well. [...] Surgeon on rounds. Signed: Leonor Henson APRN [facility] Section of Cardiac Surgery Date: 09/23/2016 * Nico Palacios PA - 09/22/2016 9:56 AM EST Cardiac Surgery Progress Note: ID: [id number] s/p AVR, patch aortoplasty POD#1. PMH of [...] NT, ND, soft. Ext: Moves all extremities. [place], well perfused. Incisions: C/D/I Tubes/Lines/Drains: PIV, leanna, [...] Attending Surgeon on rounds. Signed: EKATERINA KIM [facility] Section of Cardiac Surgery Date: 09/22/2016 [...] Outcome (s) achieved Date Met: 09/25/16 09/25/16 3949 Coping/Psychosocial Plan Of Care Reviewed With patient [...] health, home with outpatient services Lalitha Cohen [facility] Pager: [phone] Inpatient Physical Therapy Patient status, treatment interventions, and goals discussed with student. I am in agreement with all details and associated flowsheet rows as documented and was present for all aspects of the patient treatment session. Nery Jaramillo, CANDY Pager [phone] Problem: Acute Rehab Services Goal & Intervention Plan Goal: Bed Mobility Goal Stand Alone Therapy Goal Outcome: Ongoing (Interventions Implemented as Appropriate) 09/22/16 1611 09/25/16 0947 Bed Mobility Goal Bed Mobility Goal, Time to Achieve 4 days -- Bed Mobility Goal, Activity Type scoot/bridge;supine to sit/sit to supine -- Bed Mobility Goal, [place] Level independent -- Bed Mobility Goal, Additional [...] Achieve 4 days -- Gait Training Goal, [place] Level independent -- Gait Training Goal, Distance [...] [facility] Pager: [phone] Inpatient Physical Therapy Patient status, treatment interventions, and goals discussed with student. I am in agreement with all details and associated flowsheet rows as documented and was present for all aspects of the patient treatment session. Nery Jaramillo, ACID DUMPER Pager [phone] Problem: Acute Rehab Services Goal & Intervention Plan Goal: Bed Mobility Goal Stand Alone Therapy Goal Outcome: Ongoing (Interventions Implemented as Appropriate) 09/22/16161009/23/161411 Bed Mobility Goal Bed Mobility Goal, Time to Achieve 4 days -- Bed Mobility Goal, Activity Type scoot/bridge;supine to sit/sit to supine -- Bed Mobility Goal, [place] Level independent -- Bed Mobility Goal, Additional [...] Achieve 4 days -- Gait Training Goal, [place] Level independent -- Gait Training Goal, Distance [...] days -- Transfer Training Goal, Activity Type wux-jv-xxdmw/dfjvg-zf-ukq;bik-jx-ihauf/bvslk-jb-pfo -- Transfer Train Goal, [place] Level independent -- Transfer Training Goal, Additional Goal abides sternal precautions -- Transfer Training Goal, Outcome -- goal met * Consult Note - Jana Crenshaw RN - 09/23/2016 9:[address] [facility] Purnima Thacker was seen today regarding participation in the outpatient Phase 2 Cardiac Rehabilitation at [facility]. The patient agrees to a referral to [...] Another Service: (cardiac rehab) NICOLE HERNANDEZ, PT Pager:[phone] Inpatient Physical Therapy Problem: Acute Rehab Services Goal & Intervention Plan Goal: Bed Mobility Goal Stand Alone Therapy Goal Outcome: Ongoing (Interventions Implemented as Appropriate) 09/22/161610 Bed Mobility Goal Bed Mobility Goal, Time to Achieve 4 days Bed Mobility Goal, Activity Type scoot/bridge;supine to sit/sit to supine Bed Mobility Goal, [place] Level independent Bed Mobility Goal, Additional Goal able to abide sternal precautions during transfers Goal: Gait Training Goal Stand Alone Therapy Goal Outcome: Ongoing (Interventions Implemented as Appropriate) 09/22/161610 Gait Training Goal Gait Training Goal, Date Established 09/22/16 Gait Training Goal, Time to Achieve 4 days Gait Training Goal, [place] Level independent Gait Training Goal, Distance to Achieve ascend and descends 2 steps independently Goal: Goal Transfer Training Stand Alone Therapy Goal Outcome: Ongoing (Interventions Implemented as Appropriate) 09/22/161610 Goal Transfer Training Transfer Training Goal, Time to Achieve 4 days Transfer Training Goal, Activity Type gvg-dj-gofea/jeswm-wu-ijh;ssl-cj-pvlvl/iqalz-zo-hsf Transfer Train Goal, [place] Level independent Transfer Training Goal, Additional Goal [...] of completing AD's at home, chooses her nkmcay-gh-oup, Martha Thacker (home) for her DPOAH, 2nd choice in friend, Nitesh Rad, [place], [place] Current Coping/Education/Information Needs: patient sitting up [...] close by, Rashad & Raymond, and her ywunld-oo-cpr Martha Thacker who she has chosen to be her DPOAH. Also has a friend Nitesh Leroy who lives in [place], [place], also her DPOAH choice. Behavioral Health History: none on file in e[facility] Substance Use/Abuse: none on file in [facility] Other Pertinent/Service Specific Information: none Health/Prescription Coverage: Primary Insurance: [employer] Secondary Insurance: none Prescription Coverage: yes, per patient no issues Preferred Pharmacy: ?? Other: none Primary Care Provider: Deborah Quiroga, PATROL AGENT [phone] Patient/Caregiver Goals of Treatment: per medical team recommendations at discharge for CT surgery Potential Needs for Transition of Care: Rehab/SNF: TBD Home Health: TBD DME: no Dialysis: no Community Resources: non3 Transportation: ride home with a friend Other: none Anticipated Barriers to Discharge/Special Considerations: none anticipated at this time Plan: patient will need VNA services at discharge. The patient/career representative has been provided a list of Home Health Agencies/DME vendors which servetheir preferred geographic area. A letter describing our affiliations was reviewed with them and they were educated about their right to choose where referrals are placed. Patient requests referral to: [facility]. PHONE: [phone] FAX: [phone] Expected date of discharge: Fri/Sat? CM called VNA to confirm referral, talked with VALDO Bunn/intake who stated she was familiar w/patient & would monitor her progress through curaspan. Referral routed to the Supervisor Asbestos Removal for matching with agency/vendor and to provide any required information. A member of the Care Management team will continue to monitor progress, follow for continuity of care and assist with transition of care planning. Amanda Moreno RN Pager: [phone] * Op Note - Alirio Esparza MD - 09/21/2016 12:53 PM EST 09/23/2016 Purnima Thacker 1955 [id number] Preoperative Diagnosis: Symptomatic aortic stenosis Postoperative Diagnosis: Symptomatic aortic stenosis Procedure: Aortic valve replacement: Bovine Pericardial 25 mm Surgeon: Alirio Esparza M.D. Ld Teacher: Philip BALL Anesthesia: General endotracheal anesthesia [...] applied. The patient was transported to the [facility] on levo. All counts [...] Operative Note Patient Name: Purnima Thacker : [id number] MR#: [id number] Case Date: 09/21/2016 Surgeon: Surgeon(s) and Role: * Alirio Esparza MD - Primary * Nico Palacios PA - Physician Ld Teacher Preoperative diagnosis: Postoperative diagnosis: Procedure(s) (LRB): [...] AM EDT Appointment Hematology [place] [address] 05/12/2024 10:00 AM EDT Office Visit Hematology [place] [address] Markel Borjas MD [facility] [address] [place] [address] 03/01/2025 4:15 PM EDT Office Visit Dermatology at [place] [address] [place] [address] Marek Bonilla MD [address], [place] [address] Scheduled Orders Name Type Priority Associated Diagnoses [...] IMPLANTABLE DEVICES SCAN 09/26/2016 12:00 AM EST SQUEEGEE FINISHER SCAN 09/26/2016 12:00 AM EST POTASSIUM Routine [...] SCAN EXT O RDR/RSLT * SCAN DOC: SQUEEGEE FINISHER (09/26/2016 12:00 AM EST) Anatomical Region Laterality Modality Other Narrative 09/26/2016 12:00 AM EST Ordered by an unspecified provider. Scanning Provider MEDIA MGR SCAN EXT O RDR/RSLT * Potassium (09/25/2016 4:32 AM EST) Potassium 4.4 3.5 - 5.0 mmol/L WHITE [...] [facility] [place] [address] * (ABNORMAL) Differential, Automated (09/24/2016 9:56 AM EST) Pathologist [facility] Neutrophil % 76.8 % [facility] Neutrophil Absolute 7.79(H) 1.70 - 6.10 x10(3)/mc L [facility] Lymph % 11.1 % [facility] Lymphocytes Abs 1.1 0.9 - 3.2 x10(3)/mc L [facility] Monocyte % 8.5 % [facility] Monocyte Abs 0.9 0.3 - 0.9 x10(3)/mc L [facility] Eos % 0.5 % [facility] Eosinophils Abs 0.0 0.0 - 0.4 x10(3)/mc L [facility] Basophil % 0.2 % [facility] Baso Absolute 0.0 0.0 - 0.1 x10(3)/mc L [facility] Immature Gran % 2.90 % WHITE [...] Absolute 0.29(H) 0.00 - 0.04 x10(3)/mc L [facility] Blood specimen (specimen) 09/24/2016 9:56 AM EST 09/24/2016 10:04 AM EST Narrative Resulting Agency Comment Spec In Lab Alirio Esparza MD HEMATOLOGY ORDERABL ES [facility] [place] [address] * (ABNORMAL) Hemogram (09/24/2016 9:56 AM EST) White Blood Cell 10.1(H) 4.0 - 9.5 x10(3)/mc L [facility] Red Blood Cell 2.87(L) 4.00 - 5.21 x10(6)/mc L [facility] Hemoglobin 9.4(L) 11.7 - 15.5 gm/dL [facility] Hematocrit 28.3(L) 35.7 - 45.8 % [facility] Mean Cell Volume 98.6(H) 82.6 - 94.4 fL [facility] Mean Cell Hemoglobin 32.8(H) 27.1 - 32.0 pg [facility] Mean Cell Hemoglobin Concentration 33.2 31.7 - 35.0 gm/dL [facility] Platelet 141(L) 145 - 357 x10(3)/mc L [facility] RDW Standard Deviation 45.0 37.0 - 46.0 fL [facility] RDW coefficient of variation 12.6 11.5 - 14.1 % [facility] Mean Platelet Volume 9.4 7.6 - 12.9 fL [facility] NRBC% auto 1.1 % [facility] NRBC Absolute 0.110(H) 0.000 - 0.000 x10(3)/mc L [facility] Blood specimen (specimen) 09/24/2016 9:56 AM EST 09/24/2016 10:04 AM EST Narrative Resulting Agency Comment Spec In Lab Alirio Esparza MD HEMATOLOGY ORDERABL ES [facility] [place] [address] * (ABNORMAL) Basic Metabolic Panel (non-fasting) (09/24/2016 9:56 AM EST) Glucose 111 65 - 199 mg/dL [facility] Comment:Diabetes: >=200 mg/d L plus symptoms Blood Urea Nitrogen 23(H) 8 - 18 mg/dL [facility] [...] the following links into your internet browser. [email or web address] Blood specimen (specimen) 09/24/2016 9:56 AM EST 09/24/2016 10:04 AM EST Narrative Resulting Agency Comment Spec In Lab Alirio Esparza MD CHEMISTRY ORDERABLE S [facility] [place] [address] * XR Chest PA & Lateral (Generic) [...] [facility] [place] [address] * POCT Glucose (09/22/2016 8:17 AM EST) Glucose, POC 131 65 - 199 mg/dL [facility] Comment: Supplemental ranges: <140 mg/dL before meals <180 mg/dL all other times of the day Blood specimen (specimen) 09/22/2016 8:17 AM EST 09/22/2016 8:17 AM EST Alirio Esparza MD POINT OF CARE TEST ORDERABLES [facility] [place] [address] * POCT Glucose (09/22/2016 4:01 AM EST) Glucose, POC 135 65 - 199 mg/dL [facility] Comment: Supplemental ranges: <140 mg/dL before meals <180 mg/dL all other times of the day Blood specimen (specimen) 09/22/2016 4:01 AM EST 09/22/2016 4:01 AM EST Alirio Esparza MD POINT OF CARE TEST ORDERABLES [facility] [place] [address] * Scan, Peripheral Blood (09/22/2016 4:00 AM EST) Plat estimate Normal [facility] RBC Morphology Abnormal [facility] Macrocyte 1-5 /HPF [facility] Plat, Giant Less than 1 /HPF [facility] Blood specimen (specimen) 09/22/2016 4:00 AM EST 09/22/2016 4:34 AM EST Narrative Resulting Agency Comment Spec In Lab Alirio Esparza MD HEMATOLOGY ORDERABL ES Performing Organization Address [facility]/ZIP Co de Phone Number [facility] [place] [address] * Electrolytes panel (09/22/2016 4:00 AM EST) Pathologist [facility] Sodium 145 135 - 145 mmol/L [facility] Carbon Dioxide 24 22 - 31 mmol/L [facility] Anion Gap 14 5 - 15 mmol/L [facility] Blood specimen (specimen) Venous Draw / Unknown 09/22/2016 4:00 AM EST 09/22/2016 4:34 AM EST Narrative Resulting Agency Comment Spec In Lab Alirio Esparza MD CHEMISTRY ORDERABLE S Performing Organization Address City/[facility]/ZIP Co de Phone Number [facility] [place] [address] * (ABNORMAL) Differential, Automated (09/22/2016 4:00 AM EST) Neutrophil % 70.9 % [facility] Neutrophil Absolute 5.33 1.70 - 6.10 x10(3)/mc L [facility] Lymph % 9.1 % [facility] Lymphocytes Abs 0.7(L) 0.9 - 3.2 x10(3)/[facility] Monocyte % 18.0 % [facility] Monocyte Abs 1.4(H) 0.3 - 0.9 x10(3)/[facility] Eos % 0.0 % [facility] Eosinophils Abs 0.0 0.0 - 0.4 x10(3)/[facility] Basophil % 0.1 % [facility] Baso Absolute 0.0 0.0 - 0.1 x10(3)/[facility] Immature Gran % 1.90 % WHITE [...] Absolute 0.14(H) 0.00 - 0.04 x10(3)/[facility] Blood specimen (specimen) 09/22/2016 4:00 AM EST 09/22/2016 4:34 AM EST Narrative Resulting Agency Comment Spec In Lab Alirio Esparza MD HEMATOLOGY ORDERABL ES [facility] [place] [address] * (ABNORMAL) Hemogram (09/22/2016 4:00 AM EST) White Blood Cell 7.5 4.0 - 9.5 x10(3)/[facility] Red Blood Cell 2.93(L) 4.00 - 5.21 x10(6)/[facility] Hemoglobin 9.2(L) 11.7 - 15.5 gm/dL [facility] Hematocrit 28.0(L) 35.7 - 45.8 % [facility] Mean Cell Volume 95.6(H) 82.6 - 94.4 fL [facility] Mean Cell Hemoglobin 31.4 27.1 - 32.0 pg [facility] Mean Cell Hemoglobin Concentration 32.9 31.7 - 35.0 gm/dL [facility] Platelet 161 145 - 357 x10(3)/mc L [facility] RDW Standard Deviation 44.0 37.0 - 46.0 fL [facility] RDW coefficient of variation 12.6 11.5 - 14.1 % [facility] Mean Platelet Volume 9.3 7.6 - 12.9 fL [facility] NRBC% auto 0.3 % [facility] NRBC Absolute 0.020(H) 0.000 - 0.000 x10(3)/mc L [facility] Blood specimen (specimen) 09/22/2016 4:00 AM EST 09/22/2016 4:34 AM EST Narrative Resulting Agency Comment Spec In Lab Alirio Esparza MD HEMATOLOGY ORDERABL ES Performing Organization Address City/State/[facility] Co de Phone Number [facility] [place] [address] * (ABNORMAL) Cardiac Enzymes (09/22/2016 4:00 AM EST) Troponin-T 0.13(H) <=0.03 ng/mL [facility] [facility] Comment: 0.03 ng/mL: Represents the 99th percentile upper reference limit for normals. >0.03 ng/mL: Elevated cardiac troponin T level indicative of myocardial damage. Diagnosis of acute, evolving or recent ID requires a typical rise and gradual fall [...] consensus document of the Joint Society of Cardiology/[employer] [employer] Committee for the redefinition of myocardial infarction. ??Journal of the [employer] [employer] 2000; 36: 959-969] Creatine Kinase 338(H) 0 - 160 unit/L [facility] Blood specimen (specimen) 09/22/2016 4:00 AM EST 09/22/2016 4:34 AM EST Narrative Resulting Agency Comment Spec In Lab Alirio Esparza MD CHEMISTRY ORDERABLE S Performing Organization Address [facility] de Phone Number [facility] [place] [address] * (ABNORMAL) Glucose, fasting (09/22/2016 4:00 AM [...] of Diabetes Mellitus, Position Statement from the [place] [employer]. ??Diabetes Care, Volume 33, Supplement 1, Aug 2009 Blood specimen (specimen) 09/22/2016 4:00 AM EST 09/22/2016 4:34 AM EST Narrative Resulting Agency Comment Spec In Lab Alirio Esparza MD CHEMISTRY ORDERABLE S Performing Organization Address [facility] Co de Phone Number [facility] [place] [address] * (ABNORMAL) Creatinine (09/22/2016 4:00 AM EST) [facility] Creatinine 0.69(L) 0.70 - 1.20 mg/dL WHITE [...] the following links into your internet browser. [email or web address] Blood specimen (specimen) 09/22/2016 4:00 AM EST 09/22/2016 4:34 AM EST Narrative Resulting Agency Comment Spec In Lab Alirio Esparza MD CHEMISTRY ORDERABLE S Performing Organization Address City/[facility] Co de Phone Number [facility] [place] [address] * BUN (09/22/2016 4:00 AM EST) [facility] Blood Urea Nitrogen 10 8 - 18 mg/dL [facility] Blood specimen (specimen) 09/22/2016 4:00 AM EST 09/22/2016 4:34 AM EST Narrative Resulting Agency Comment Spec In Lab Alirio Esparza MD CHEMISTRY ORDERABLE S Performing Organization Address [facility]/ZIP Co de Phone Number [facility] [place] [address] * POCT Glucose (09/21/2016 9:59 PM EST) Glucose, POC 146 65 - 199 mg/dL [facility] Comment: Supplemental ranges: <140 mg/dL before meals <180 mg/dL all other times of the day Blood specimen (specimen) 09/21/2016 9:59 PM EST 09/21/2016 9:59 PM EST Alirio Esparza MD POINT OF CARE TEST ORDERABLES Performing Organization Address City/[facility]/ZIP Co de Phone Number [facility] [place] [address] * POCT Glucose (09/21/2016 7:26 PM EST) Glucose, POC 152 65 - 199 mg/dL [facility] Comment: Supplemental ranges: <140 mg/dL before meals <180 mg/dL all other times of the day Blood specimen (specimen) 09/21/2016 7:26 PM EST 09/21/2016 7:26 PM EST Alirio Esparza MD POINT OF CARE TEST ORDERABLES Performing Organization Address [facility] Co de Phone Number [facility] [place] [address] * POCT Glucose (09/21/2016 6:00 PM EST) Glucose, POC 146 65 - 199 mg/dL [facility] Comment: Supplemental ranges: <140 mg/dL before meals <180 mg/dL all other times of the day Blood specimen (specimen) 09/21/2016 6:00 PM EST 09/21/2016 6:00 PM EST Alirio Esparza MD POINT OF CARE TEST ORDERABLES Performing Organization Address City/[facility] Co de Phone Number [facility] [place] [address] * (ABNORMAL) BLOOD GAS 2 ARTERIAL (09/21/2016 4:42 PM EST) [facility] pH, Arterial 7.35(L) 7.35 - 7.45 [facility] PCO2, Arterial 48(H) 35 - 45 mmHg [facility] PO2, Arterial 108(H) 85 - 104 mmHg [facility] Bicarbonate, Arterial 26.0 20.0 - 26.0 mmol/L [facility] Base Excess, Arterial 0.5 -3.0 - 3.0 mmol/L [facility] Hgb Blood Gas 10.4(L) 11.7 - 15.5 gm/dL [facility] Oxyhemoglobin, Arterial 96.2 94.0 - 97.0 % [facility] Carboxyhemoglob in, Arterial 0.0 % [facility] Comment: Nonsmokers: 0.5-1.5% COHB Smokers: Variable, but usually less than 10% Toxic: 20-30% COHB Lethal: Greater than 60% COHB Methemoglobin, Arterial 0.7 <=1.5 % [facility] Na Whole Blood 139 [...] [facility] PF Ratio Art 270 [facility] Blood specimen (specimen) 09/21/2016 4:42 PM EST 09/21/2016 4:42 PM EST Alirio Esparza MD POINT OF CARE TEST ORDERABLES Performing Organization Address [facility] Co de Phone Number [facility] [place] [address] * POCT Glucose (09/21/2016 4:07 PM EST) Pathologist [facility] Glucose, POC 150 65 - 199 mg/dL [facility] Comment: Supplemental ranges: <140 mg/dL before meals <180 mg/dL all other times of the day Blood specimen (specimen) 09/21/2016 4:07 PM EST 09/21/2016 4:07 PM EST Alirio Esparza MD POINT OF CARE TEST ORDERABLES Performing Organization Address [facility] de Phone Number [facility] [place] [address] * (ABNORMAL) Hemoglobin (09/21/2016 4:05 PM EST) [facility] Hemoglobin 9.9(L) 11.7 - 15.5 gm/dL [facility] Blood specimen (specimen) 09/21/2016 4:05 PM EST 09/21/2016 4:20 PM EST Narrative Resulting Agency Comment Spec In Lab Alirio Esparza MD HEMATOLOGY ORDERABL ES Performing Organization Address [facility] Phone Number [facility] [place] [address] * Potassium (09/21/2016 4:05 PM EST) [facility] Potassium 4.6 3.5 - 5.0 mmol/L WHITE [...] S Performing Organization Address [facility] Co de Phone Number [facility] [place] [address] * POCT Glucose (09/21/2016 2:52 PM EST) Glucose, POC 117 65 - 199 mg/dL [facility] Comment: Supplemental ranges: <140 mg/dL before meals <180 mg/dL all other times of the day Blood specimen (specimen) 09/21/2016 2:52 PM EST 09/21/2016 2:52 PM EST Alirio Esparza MD POINT OF CARE TEST ORDERABLES Performing Organization Address [facility] Co de Phone Number [facility] [place] [address] * POCT Glucose (09/21/2016 1:51 PM EST) Glucose, POC 108 65 - 199 mg/dL [facility] Comment: Supplemental ranges: <140 mg/dL before meals <180 mg/dL all other times of the day Blood specimen (specimen) 09/21/2016 1:51 PM EST 09/21/2016 1:51 PM EST Alirio Esparza MD POINT OF CARE TEST ORDERABLES Performing Organization Address [facility] Co de Phone Number [facility] [place] [address] * POCT Glucose (09/21/2016 12:54 PM EST) Glucose, POC 128 65 - 199 mg/dL [facility] Comment: Supplemental ranges: <140 mg/dL before meals <180 mg/dL all other times of the day Blood specimen (specimen) 09/21/2016 12:54 PM EST 09/21/2016 12:54 PM EST Alirio Esparza MD POINT OF CARE TEST ORDERABLES [facility] [place] [address] * EKG 12 Lead (09/21/2016 12:26 PM EST) Ventricular rate 87 BPM MUSE SYSTEM Atrial Rate 87 BPM MUSE SYSTEM P-R Interval 256 ms MUSE SYSTEM QRS Duration 90 ms MUSE SYSTEM Q-T Interval 406 ms MUSE SYSTEM QTC Calculated (Bezet) 488 ms MUSE SYSTEM Calculated P [place] 24 degrees MUSE SYSTEM Calculated R [place] 21 degrees MUSE SYSTEM Calculated T [place] -5 degrees MUSE SYSTEM INTERPRETATION Sinus rhythm [...] course of the esophagus and below the [id number]. There is a right IJ PA catheter [...] the course of theesophagus and below the [id number]. There is a right IJ PA catheter [...] EST) pH, Arterial 7.41 7.35 - 7.45 [facility] PCO2, Arterial 42 35 - 45 mmHg [facility] PO2, Arterial 356(H) 85 - 104 mmHg [facility] Bicarbonate, Arterial 26.2(H) 20.0 - 26.0 mmol/L [facility] Base Excess, Arterial 1.6 -3.0 - 3.0 mmol/L [facility] Hgb Blood Gas 10.7(L) 11.7 - 15.5 gm/dL [facility] Oxyhemoglobin, Arterial 98.1(H) 94.0 - 97.0 % [facility] Carboxyhemoglob in, Arterial 0.3 % [facility] Comment: Nonsmokers: 0.5-1.5% COHB Smokers: Variable, but usually less than 10% Toxic: 20-30% COHB Lethal: Greater than 60% COHB Methemoglobin, Arterial 0.8 <=1.5 % [facility] Na Whole Blood 140 [...] [facility] PF Ratio Art 356 [facility] Blood specimen (specimen) 09/21/2016 12:20 PM EST 09/21/2016 12:20 PM EST Alirio Esparza MD POINT OF CARE TEST ORDERABLES Performing Organization Address [facility] Phone Number [facility] [place] [address] * (ABNORMAL) BLOOD GAS 2 ARTERIAL (09/21/2016 10:54 AM EST) pH, Arterial 7.43 7.35 - 7.45 [facility] PCO2, Arterial 40 35 - 45 mmHg [facility] PO2, Arterial 297(H) 85 - 104 mmHg [facility] Bicarbonate, Arterial 26.0 20.0 - 26.0 mmol/L [facility] Base Excess, Arterial 1.6 -3.0 - 3.0 mmol/L [facility] Hgb Blood Gas 8.6(L) 11.7 - 15.5 gm/dL [facility] Oxyhemoglobin, Arterial 98.6(H) 94.0 - 97.0 % [facility] Carboxyhemoglob in, Arterial 0.5 % [facility] Comment: Nonsmokers: 0.5-1.5% COHB Smokers: Variable, but usually less than 10% Toxic: 20-30% COHB Lethal: Greater than 60% COHB Methemoglobin, Arterial 0.3 <=1.5 % [facility] Na Whole Blood 134(L) [...] [facility] PF Ratio Art 313 [facility] Temp Art 36.7 Celsius [facility] Blood specimen (specimen) 09/21/2016 10:54 AM EST 09/21/2016 10:54 AM EST Alirio Esparza MD POINT OF CARE TEST ORDERABLES Performing Organization Address City/State/[facility] Co de Phone Number [facility] [place] [address] * Thrombin time (09/21/2016 10:50 AM EST) [...] S Performing Organization Address [facility] de Phone Number [facility] [place] [address] * Fibrinogen (09/21/2016 10:50 AM EST) Fibrinogen [...] MD HEMATOLOGY ORDERABLE S Performing Organization Address [facility] de Phone Number [facility] [place] [address] * APTT (09/21/2016 10:50 AM EST) [facility] Partial Thromboplastin Time 32 25 - 35 sec [facility] Comment: The recommended therapeutic range for full dose, unfractionated heparin at [facility] is 80 ? 114 [...] S Performing Organization Address [facility] de Phone Number [facility] [place] [address] * (ABNORMAL) Prothrombin Time (09/21/2016 10:50 AM EST) Pathologist [facility] Prothrombin Time 18.7(H) 12.0 - 15.0 sec [facility] [...] International Normalization Ratio 1.5(H) 0.9 - 1.1 [facility] Blood specimen (specimen) 09/21/2016 10:50 AM EST 09/21/2016 10:56 AM EST Narrative Resulting Agency Comment Spec In Lab Luis Enrique Quarles MD HEMATOLOGY ORDERABLE S [facility] [place] [address] * (ABNORMAL) Hemogram (09/21/2016 10:50 AM EST) White Blood Cell 14.7(H) 4.0 - 9.5 x10(3)/mc L [facility] Red Blood Cell 2.40(L) 4.00 - 5.21 x10(6)/mc L [facility] Hemoglobin 7.9(L) 11.7 - 15.5 gm/dL [facility] Hematocrit 23.2(L) 35.7 - 45.8 % [facility] Comment: This result has been called to MICHELLE GRIGSBY by ASHU MORENO on 09 21 2016 at 1102, and has been read back. Mean Cell Volume 96.7(H) 82.6 - 94.4 fL [facility] Mean Cell Hemoglobin 32.9(H) 27.1 - 32.0 pg [facility] Mean Cell Hemoglobin Concentration 34.1 31.7 - 35.0 gm/dL [facility] Platelet 117(L) 145 - 357 x10(3)/mc L [facility] RDW Standard Deviation 42.6 37.0 - 46.0 fL [facility] RDW coefficient of variation 12.1 11.5 - 14.1 % [facility] Mean Platelet Volume 9.2 7.6 - 12.9 fL [facility] NRBC% auto 0.1 % [facility] NRBC Absolute 0.020(H) 0.000 - 0.000 x10(3)/mc L [facility] Blood specimen (specimen) 09/21/2016 10:50 AM EST 09/21/2016 10:56 AM EST Narrative Resulting Agency Comment Spec In Lab Luis Enrique Quarles MD HEMATOLOGY ORDERABLE S Performing Organization Address [facility] de Phone Number [facility] [place] [address] * Prepare Platelets, Apheresis (09/21/2016 10:30 AM EST) Dispensed? Yes [facility] Blood specimen (specimen) 09/21/2016 10:30 AM EST 09/21/2016 10:28 AM EST Alirio Esparza MD BLOOD BANK PRODUCT ORDERABLES Performing Organization Address [facility] Phone Number [facility] [place] [address] * (ABNORMAL) BLOOD GAS 2 ARTERIAL (09/21/2016 10:05 AM EST) pH, Arterial 7.33(L) 7.35 - 7.45 [facility] PCO2, Arterial 54(Critic al) 35 - 45 mmHg [facility] Comment:Noted by inspector optical instrument. PO2, Arterial 218(H) 85 - 104 mmHg [facility] Bicarbonate, Arterial 27.9(H) 20.0 - 26.0 mmol/L [facility] Base Excess, Arterial 2.0 -3.0 - 3.0 mmol/L [facility] Hgb Blood Gas 8.6(L) 11.7 - 15.5 gm/dL [facility] Oxyhemoglobin, Arterial 98.4(H) 94.0 - 97.0 % [facility] Carboxyhemoglo bin, Arterial 0.5 % [facility] Comment: Nonsmokers: 0.5-1.5% COHB Smokers: Variable, but usually less than 10% Toxic: 20-30% COHB Lethal: Greater than 60% COHB Methemoglobin, Arterial 0.3 <=1.5 % [facility] Na Whole Blood 129(L) 135 - 145 mmol/L [facility] K Whole Blood 6.2(Criti gabrielle) 3.5 - 5.0 mmol/L [facility] Comment: Noted by inspector optical instrument. [...] [facility] [place] [address] * (ABNORMAL) BLOOD GAS 2 ARTERIAL (09/21/2016 9:44 AM EST) pH, Arterial 7.22(Criti gabrielle) 7.35 - 7.45 [facility] Comment:Noted by inspector optical instrument. PCO2, Arterial 70(Critica l) 35 - 45 mmHg [facility] Comment:Noted by inspector optical instrument. PO2, Arterial 224(H) 85 - 104 mmHg [facility] Bicarbonate, Arterial 27.8(H) 20.0 - 26.0 mmol/L [facility] Base Excess, Arterial 0.0 -3.0 - 3.0 mmol/L [facility] Hgb Blood Gas 8.7(L) 11.7 - 15.5 gm/dL [facility] Oxyhemoglobin, Arterial 98.5(H) 94.0 - 97.0 % [facility] Carboxyhemoglob in, Arterial 0.6 % [facility] Comment: Nonsmokers: 0.5-1.5% COHB Smokers: Variable, but usually less than 10% Toxic: 20-30% COHB Lethal: Greater than 60% COHB Methemoglobin, Arterial 0.3 <=1.5 % [facility] Na Whole Blood 131(L) [...] [facility] [place] [address] * (ABNORMAL) Hemoglobin (09/21/2016 9:42 AM EST) Hemoglobin 7.2(L) 11.7 - 15.5 gm/dL [facility] Blood specimen (specimen) 09/21/2016 9:42 AM EST 09/21/2016 9:51 AM EST Narrative Resulting Agency Comment Spec In Lab Alirio Esparza MD HEMATOLOGY ORDERABL ES Performing Organization Address [facility]/ZIP Co de Phone Number [facility] [place] [address] * Platelet count (09/21/2016 9:42 AM EST) Platelet 159 145 - 357 x10(3)/mc L [facility] Immature Plt % 1.6 0.0 - 7.4 % [facility] Comment: Limitation of the Immature Platelet Fraction (IPF)-May be less reliable when the platelet count is less than [id number]/uL due to statistical imprecision. The IPF value [...] in a decreased state of production. References: [employer] The Clinical Value of the Immature Platelet Fraction (IPF) in Cell Recovery Document Number [id number] 12/2010 [employer] The Role of the Immature Platelet Fraction (IPF) in the Differential Diagnosis of Thrombocytopenia, Document [id number] V05/07/15 P0514 Blood specimen (specimen) 09/21/2016 9:42 AM EST 09/21/2016 9:51 AM EST Narrative Resulting Agency Comment Spec In Lab Alirio Esparza MD HEMATOLOGY ORDERABL ES Performing Organization Address [facility] Co de Phone Number [facility] [place] [address] * (ABNORMAL) Hematocrit (09/21/2016 9:42 AM EST) [...] ES Performing Organization Address [facility] de Phone Number [facility] [place] [address] * Fibrinogen (09/21/2016 9:42 AM EST) Fibrinogen [...] ES Performing Organization Address [facility] Co de Phone Number [facility] [place] [address] * (ABNORMAL) BLOOD GAS 2 ARTERIAL (09/21/2016 9:10 AM EST) pH, Arterial 7.36 7.35 - 7.45 [facility] PCO2, Arterial 48(H) 35 - 45 mmHg [facility] PO2, Arterial 295(H) 85 - 104 mmHg [facility] Bicarbonate, Arterial 26.0 20.0 - 26.0 mmol/L [facility] Base Excess, Arterial 0.5 -3.0 - 3.0 mmol/L [facility] Hgb Blood Gas 8.0(L) 11.7 - 15.5 gm/dL [facility] Oxyhemoglobin, Arterial 98.3(H) 94.0 - 97.0 % [facility] Carboxyhemoglob in, Arterial 1.0 % [facility] Comment: Nonsmokers: 0.5-1.5% COHB Smokers: Variable, but usually less than 10% Toxic: 20-30% COHB Lethal: Greater than 60% COHB Methemoglobin, Arterial 0.3 <=1.5 % [facility] Na Whole Blood 135 [...] [facility] [place] [address] * Surgical Pathology Report (09/21/2016 9:09 AM EST) Final Diagnosis [id number] ?Location: 3T The signing pathologist has (i) [...] ?. (R1) ??ADELITA 09/24/2016 9:32 AM EST [facility] AORTIC STRUCTURE / Unknown 09/21/2016 9:09 AM EST 09/21/2016 9:09 AM EST Alirio Esparza MD PATHOLOGY/[place] [address] * Specimen to Pathology (surgical or derm) (09/21/2016 9:09 AM EST) AP Specimen 09/21/2016 9:09 AM EST 09/21/2016 9:09 AM EST Narrative [facility] - 09/21/2016 9:09 AM EST Specimen requisition ordered. ??Separate Pathology report to follow Alirio Esparza MD PATHOLOGY/CYTOLOGY ORDERABLES [facility] [place] [address] * (ABNORMAL) BLOOD GAS 2 ARTERIAL (09/21/2016 8:50 AM EST) pH, Arterial 7.41 7.35 - 7.45 [facility] PCO2, Arterial 33(L) 35 - 45 mmHg [facility] PO2, Arterial 348(H) 85 - 104 mmHg [facility] Bicarbonate, Arterial 20.6 20.0 - 26.0 mmol/L [facility] Base Excess, Arterial -4.1(L) -3.0 - 3.0 mmol/L [facility] Hgb Blood Gas 9.5(L) 11.7 - 15.5 gm/dL [facility] Oxyhemoglobin, Arterial 98.8(H) 94.0 - 97.0 % [facility] Carboxyhemoglob in, Arterial 0.3 % [facility] Comment: Nonsmokers: 0.5-1.5% COHB Smokers: Variable, but usually less than 10% Toxic: 20-30% COHB Lethal: Greater than 60% COHB Methemoglobin, Arterial 0.3 <=1.5 % [facility] Na Whole Blood 137 [...] [facility] [place] [address] * (ABNORMAL) BLOOD GAS 2 ARTERIAL (09/21/2016 8:18 AM EST) pH, Arterial 7.42 7.35 - 7.45 [facility] PCO2, Arterial 36 35 - 45 mmHg [facility] PO2, Arterial 283(H) 85 - 104 mmHg [facility] Bicarbonate, Arterial 22.8 20.0 - 26.0 mmol/L [facility] Base Excess, Arterial -2.0 -3.0 - 3.0 mmol/L [facility] Hgb Blood Gas 12.6 11.7 - 15.5 gm/dL [facility] Oxyhemoglobin, Arterial 99.0(H) 94.0 - 97.0 % [facility] Carboxyhemoglob in, Arterial 0.6 % [facility] Comment: Nonsmokers: 0.5-1.5% COHB Smokers: Variable, but usually less than 10% Toxic: 20-30% COHB Lethal: Greater than 60% COHB Methemoglobin, Arterial 0.0 <=1.5 % [facility] Na Whole Blood 144 [...] [facility] PF Ratio Art 298 [facility] Temp Art 35.6 Celsius [facility] Blood specimen (specimen) 09/21/2016 8:18 AM EST 09/21/2016 8:18 AM EST Alirio Esparza MD POINT OF CARE TEST ORDERABLES [facility] [place] [address] * Prepare RBC (09/21/2016 7:05 AM EST) Dispensed? Yes [facility] Blood specimen (specimen) 09/21/2016 7:05 AM EST 09/21/2016 7:02 AM EST Alirio Esparza MD BLOOD BANK PRODUCT ORDERABLES Performing Organization Address City/[facility]/ZIP Co de Phone Number [facility] [place] [address] * POCT Glucose (09/21/2016 6:42 AM EST) Glucose, POC 104 65 - 199 mg/dL [facility] Comment: Supplemental ranges: <140 mg/dL before meals <180 mg/dL all other times of the day Blood specimen (specimen) 09/21/2016 6:42 AM EST 09/21/2016 6:42 AM EST Alirio Esparza MD POINT [place] [address] documented in this encounter Visit Diagnoses Not [...] dose on Wed09/21/16 at 1230, Until Discontinued, [place] teeth, Routine Given 09/25/2016 9:40 AM EST [...] AM, Routine 0817 (See Alternative - Provider: Esla Miguel RN) 0829 (See Alternative - Provider: [...] dose on Wed09/21/16 at 1230, Until Discontinued, [place] teeth, Routine 0900 (Not Given - Provider: [...] refused) 2099 (Not Given - Provider: Alie Whitfiedl RN - Reason: Patient/family refused) sodium chloride [...] Routine documented in this encounter Care Teams Information Writer Relationship Specialty Start Date End Date Deborah Quiroga APRN PCP - General Family Medicine 03/24/16 02/04/23 documented as of this encounter
--- OUTSIDE RECORDS SUMMARY | 2024-04-25 16:19 | XMS_ITS | Encounter Summary ---
Author Organization [facility] Address [facility] [place] [address] Care Team Providers Care Mid Level Business Analyst Name Role Phone Deborah Quiroga ANURAG Primary Care Provider [phone] Encounter Details Date Type Department Care Team (Late st Contact Info) Description 08/04/2016 External Results Hematology [place] [phone] Alexandrea Greenwood RN Neutropenia, unspecified type Social [...] AM EDT Appointment Hematology [place] [phone] 05/12/2024 10:00 AM EDT Office Visit Hematology [place] [phone] Markel Borjas MD [facility] HEMATOLOGY [place] [address] 03/01/2025 4:15 PM EDT Office Visit Dermatology at [address] [address] Marek Bonilla MD [address], [place] [address] documented as of this encounter Procedures Procedure [...] type documented in this encounter Care Teams Mid Level Business Analyst Relationship Specialty Start Date End Date Deborah Quiroga APRN PCP - General Family Medicine 03/24/16 02/04/23 documented as of this encounter
--- OUTSIDE RECORDS SUMMARY | 2024-04-25 16:19 | XMS_ITS | Encounter Summary ---
[place] [address] Care Team Providers Care Assistant Tennis Coach Name Role Phone Deborah Quiroga ANURAG Primary Care Provider [phone] Encounter Details Date Type Department Care Team (Late st Contact Info) Description 09/11/2016 Orders Only Hematology [place] [address] Alexandrea Greenwood RN Social History [...] the original note were not included. N [facility] [place] [phone] Date: 09/11/16 Patient Name: Purnima Thacker : 1955 Diagnosis: Neutropenia Referral to [site]: [facility] Orders: ? Growth factor: [x] Neulasta 6mg SQ injection x 1 on 09/16/16 Signature: Markel Borjas MD beeper # [id number] Co-signature [if needed]: documented in this encounter Plan of Treatment Upcoming Encounters Date Type Department Care Team (Late st Contact Info) Description 05/12/2024 9:00 AM EDT Appointment Hematology [place] [address] 05/12/2024 10:00 AM EDT Office Visit Hematology [place] [phone] Markel Borjas MD [facility] [address] [place] [address] 03/01/2025 4:15 PM EDT Office Visit Dermatology at [place] [address] [place] [address] Marek Bonilla MD [address], [place] [address] documented as of this encounter Procedures Procedure Name Priority Date/Time Associated Diagnosis Comments TRANSESOPHAGEAL ECHOCARDIOGRAM (GAVINO) Routine 09/22/2016 documented in this encounter Results * Transesophageal Echocardiogram (GAVINO) (09/22/2016) Anatomical Region Laterality Modality Other 09/22/2016 Narrative 09/22/2016 8:30 AM EST Procedure: ?Transesophageal Echocardiogram Patient: ?ANDREW ECHOLS M ? (Age): 1955(61y) Med Rec#: ? [id number] ?Sex: ?M ? Site Loc: ? [facility] ?Ht / Wt: ??(cm)/ (kg) ? Pt. Loc: ?OR ? Study Date: ?? 09/21/2016 ?Pt. Type: Tape: ? 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 AVR for severe Rhythm: ? [...] ? Mid-Inferior ?Normal ? Mid-Inferoseptal ?Normal ? [place]-Septal ? Normal ? [place]-Anterior ? Normal ? [place]-Lateral ?Normal ? [place]-Inferior ? Normal ? [place]-Tip ?Normal ? This report has been electronically signed by: Henrik Yarbrough M.D. ? 09/22/2016 08:30:41 Images reviewed and interpretation verified [facility] Cardiac Ultrasound [facility] Procedure Note Henrik Yarbrough MD - 09/22/2016 Procedure: Transesophageal Echocardiogram Patient: ANDREW Mejias (Age): 1955(61y) Med Rec#: [id number] Sex: M Site Loc: [facility] Ht / Wt: (cm)/ (kg) Pt. Loc: OR Study Date: 09/21/2016 Pt. 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 09/22/2016 08:30:41 Images reviewed and interpretation verified [facility]iac Ultrasound [facility] Unknown ECHO ORDERABLES documented in this encounter Visit Diagnoses Not on filedocumented in this encounter Care Teams Assistant Tennis Coach Relationship Specialty Start Date End Date Deborah Quiroga APRN PCP - General Family Medicine 03/24/16 02/04/23 documented as of this encounter
--- OUTSIDE RECORDS SUMMARY | 2024-04-25 16:19 | XMS_ITS | Encounter Summary ---
Author Organization [facility] Address [facility] [place] [address] Care Team Providers Care Natural Sciences Department Chair Name Role Phone Deborah Quiroga APRN Primary Care Provider [phone] Encounter Details Date Type Department Care Team (Late st Contact Info) Description 07/17/2016 9:00 AM EST Office Visit Hematology [place] [address] Markel Borjas MD [facility] [address] [place] [address] Neutropenia, unspecified type Social History Tobacco Use [...] 07/17/2016 9:00 AM EST Hematology Outpatient [facility] Hematology [...] TOUCH PREP, CLOT SECTION, CORE ??BIOPSY); [OSR# [id number], COLLECTED 06/23/2016, 19 SLIDES]: ?1. ??Normocellular marrow [...] a clonal lymphoproliferative or myeloproliferative disorder (OSR# [id number]) Chromosome analysis on the marrow aspirate revealed [...] 24 hour(s)). Labs will be drawn at [facility] next week Imaging As above - reviewed [...] leukopenia. Will consi kanwal talking to pt's night filler about a switch from ACEI to ARB [...] the original note were not included. N [facility] [place] [phone] Date: 07/17/16 Patient Name: Purnima Thacker : 1955 Diagnosis: neutropenia Referral to [site]: [facility] Orders: ? Labs: Fax results to . [x] Draw CBC, copper level, CMV PCR, mononucleosis screen on 07/20 Repeat CBC on 07/30 (to measure response of WBC after Neulasta) ? Growth factor: [x] Neulasta 6mg SQ injection x 1 on 07/20/2016 Signature: Markel Borjas MD beeper # [id number] documented in this encounter Plan of Treatment Upcoming Encounters Date Type Department Care Team (Late st Contact Info) Description 05/12/2024 9:00 AM EDT Appointment Hematology [place] [phone] 05/12/2024 10:00 AM EDT Office Visit Hematology [place] [phone] Markel Borjas MD [facility] [address] [place] [address] 03/01/2025 4:15 PM EDT Office Visit Dermatology at [address] [place] [address] Marek Bonilla MD [address], QUOC A DERMATOLOGY [place], [place] [phone] documented as of this encounter Results * (ABNORMAL) CBC (with Diff) (07/31/2016 9:40 AM EST) Pathologist [facility] White Blood Cell 2.23(EXTER NAL/ABN) 4.4 - 10.8 EXTERNAL LAB Hemoglobin 12.6 12.0 - 16.0 EXTERNAL LAB Hematocrit 37.7 36.0 - 46.0 EXTERNAL LAB Platelet 167 130 - 400 EXTERNAL LAB Neutrophil Absolute (ANC) - Automated 1.17(EXTER NAL/ABN) 1.2 - 6.7 EXTERNAL LAB Blood specimen (specimen) 07/31/2016 9:40 AM EST Markel Borjas MD HEMATOLOGY ORDERAB LES Performing Organization Address City/[facility]/ZIP Co de Phone Number EXTERNAL LAB * Mononucleosis Screen (07/20/2016 10:30 AM EST) [facility] Mononucleosis Screen neg neg - neg EXTERNAL LAB Blood specimen (specimen) 07/20/2016 10:30 AM EST Markel Borjas MD IMMUNOLOGY ORDERAB LES Performing Organization Address City/[facility]/ZIP Co de Phone Number EXTERNAL LAB * Copper, serum (07/20/2016 10:30 AM EST) Pathologist [facility] Copper (NOVEMBER) 1.09 0.75 - 1.45 EXTERNAL LAB Blood specimen (specimen) 07/20/2016 10:30 AM EST Markel Borjas MD LAB SEND OUT ORDER JODIE Performing Organization Address City/[facility]/ZIP Co de Phone Number EXTERNAL LAB * CMV PCR, Quantitative (07/20/2016 10:30 AM EST) [facility] CMV PCR,Quantitati ve undetected EXTERNAL LAB Blood [...] MD HEMATOLOGY ORDERAB LES Performing Organization Address City/[facility] Co de Phone Number EXTERNAL LAB documented in this encounter Visit Diagnoses Diagnosis Neutropenia, unspecified type documented in this encounter Care Teams Natural Sciences Department Chair Relationship Specialty Start Date End Date Deborah Quiroga APRN PCP - General Family Medicine 03/24/16 02/04/23 documented as of this encounter
--- OUTSIDE RECORDS SUMMARY | 2024-04-25 16:19 | XMS_ITS | Encounter Summary ---
Author Organization [facility] Address [facility] [place] [address] Care Team Providers Care Needle Punch Machine Operator Helper Name Role Phone Deborah Quiroga ANURAG Primary Care Provider [phone] Encounter Details Date Type Department Care Team (Late st Contact Info) Description 07/31/2016 External Results Hematology [place] [phone] Alexandrea Greenwood RN Neutropenia, unspecified type Social [...] AM EDT Appointment Hematology [place] [phone] 05/12/2024 10:00 AM EDT Office Visit Hematology [place] [address] Markel Borjas MD [facility] HEMATOLOGY [place] [address] 03/01/2025 4:15 PM EDT Office Visit Dermatology at [address] [address] Marek Bonilla MD [address], [place] [address] documented as of this encounter Procedures Procedure [...] type documented in this encounter Care Teams Needle Punch Machine Operator Helper Relationship Specialty Start Date End Date Deborah Quiroga APRN PCP - General Family Medicine 03/24/16 02/04/23 documented as of this encounter
--- OUTSIDE RECORDS SUMMARY | 2024-04-25 16:19 | XMS_ITS | Encounter Summary ---
Author Organization [facility] Address [facility] [place] [address] Care Team Providers Care Jira Administrator Name Role Phone Deborah Quiroga ANURAG Primary Care Provider [phone] Encounter Details Date Type Department Care Team (Late st Contact Info) Description 09/17/2016 External Results Hematology [place] [phone] Alexandrea Greenwood RN Neutropenia, unspecified type Social [...] AM EDT Appointment Hematology [place] [phone] 05/12/2024 10:00 AM EDT Office Visit Hematology [place] [phone] Markel Borjas MD [facility] HEMATOLOGY AND [place] [address] 03/01/2025 4:15 PM EDT Office Visit Dermatology at [address] [address] Marek Bonilla MD [address], [place] [address] documented as of this encounter Procedures Procedure [...] type documented in this encounter Care Teams Jira Administrator Relationship Specialty Start Date End Date Deborah Quiroga APRN PCP - General Family Medicine 03/24/16 02/04/23 documented as of this encounter
--- OUTSIDE RECORDS SUMMARY | 2024-04-25 16:19 | XMS_ITS | Encounter Summary ---
Author Organization [facility] [place] [address] Care Team Providers Care Carrier Blower Name Role Phone Ashley Quirogan Cornelius ANURAG Primary Care Provider [phone] Reason for Referral * Consultation (Routine) - Specialty Diagnoses / Procedures Referred By Contact Referred To Contact Cardiac Rehabilitation Diagnoses S/P AVR Alirio Esparza MD [facility] DR CARDIOTHORACIC [place] [address] Cardiac Rehab, [address] [place] [address] Referral ID Status Reason Start Date Expiration Date V isits Requested Visits Authorized [id number] Consult, Test & Treat 09/25/2016 03/24/2017 36 36 Reason for Visit * Auth/Cert Specialty Diagnoses / Procedures Referred By Contkrystle t Referred To Contact Diagnoses Aortic stenosis Procedures PRO REPLACE AORT VALV, PROSTH VALV @REPLACE AORTIC VALVE, OPEN, W\CPB, W\PROSTHETIC VALVE (WRVU 41.32) Referral ID Status Reason Start Date Expiration Date Visits Re quested Visits Authorized [id number] 1 1 Encounter Details Date Type Department Care Team (Latest Contact Info) Description 09/21/2016 6:08 AM EST - 09/25/2016 4:33 PM EST Hospital Encounter Intermediate [place] [id number] Alirio Esparza MD Aortic valve stenosis, unspecified [...] Patient Age: 61 y.o. Birthdate: 1955 Language: Salvadorean Race: White Ethnicity: Not nor Admit Date: 09/21/2016 Discharge Date: 09/25/2016 Attending Physician: Alirio Esparza MD Follow-up Recommendations for Providers: Please continue routine management of cardiovascular risk factors including blood pressure, lipids,glucose, etc. Please note any changes to medications. Patient to follow-up with PCP, Deborah Quiroga APRN, in 1-2 weeks. Patient to follow-up with Film Rental Clerk, Dr. Antelmo Burrell, in two weeks. Patient to follow-up with Cardiac Surgery, Dr. Alirio Esparza, to be scheduled for before 10/19/2016, with CXR, EKG, and Echo. Inpatient Provider Contact Information: [facility] Section of Cardiac Surgery [facility] [address] FAX [phone] Discharge Diagnoses (Hospital Problems) Primary Diagnoses: Secondary [...] 41.32) performed by Alirio Esparza MD at [facility] MAIN OR ??? Pro aortoplas for supravalv sten N/A 09/21/2016 @AORTOPLASTY FOR SUPRAVALVULAR STENOSIS (WRVU 29.33) performed by Alirio Esparza MD at [facility] MAIN OR Prior To Admission Medications [...] Course: Purnima Thacker was admitted to [facility] on 09/21/2016 via the Same Day Program. [...] Alirio Esparza and/or the Cardiac Surgery Physician Tube Bender Team may be reached at . Antibiotic [...] Dr. Alirio Jones. You may use a [place] Track or treadmill but avoid any [...] AM Markel Borjas MD [facility] [phone] Future Orders Complete By Expires Echocardiogram Transthoracic([place]eb) [FFV054 Custom] 10/18/2016 (Approximate) 09/18/2017 Process Instructions: If the Echocardiogram is to be PERFORMED in a location other than [place]--STOP and order [id number], Echocardiogram South/External. Scheduling Instructions: Questions: Is a Bubble Study requested?: No Does the patient have Congenital Heart Disease?: No Does patient require sedation?: None GA rationale: Should this service be billed to the research sponsor?: EKG 12 Lead [EKG1 Custom] 10/18/2016 (Approximate) 09/25/2017 Process Instructions: Scheduling Instructions: Questions: Which location will this be performed?: [place] Is a rhythm strip needed?: No If EKG Reason is Pre-op Evaluation, indicate diagnosis for surgery.: Should this service be billed to the research sponsor?: XR Chest PA & Lateral (Generic) [[id number] Custom] 10/18/2016 (Approximate) 09/25/2017 Process Instructions: Scheduling Instructions: Questions: Where will study be performed?: [facility]- Radiology Portable exam?: No Reason for exam and clinical history: s/p AVReplacement, patch annuloplasty 1 month f/u Other pertinent information: Stat read required?: Date of injury if applicable: Requested Time: Referral to Cardiac Rehab [GMW355 Custom] As directed Process Instructions: If no progress note charted, please enter Clinical details in comments. Scheduling Instructions: Questions: My question or request is: s/p AVR. Cardiac rehab at [facility] Referral to Home Health - at DISCHARGE [[id number] CPT(R)] As directed Process Instructions: Scheduling Instructions: Comments: DOCUMENTATION FOR VNA SERVICES (INCLUDING THOSE PATIENTS WITH MEDICARE COVERAGE REQUIRING HOME VNA SERVICES AND/OR HOSPICE SERVICES) PATIENT'S LOCATION: Purnima Magalie Kirstie [address] [place] [phone] (home) No relevant phone numbers on file. Cuff Setter Overlock's Name: self In discussion with the attending physician, it is certified that this patient is under their care and that they, or a Nurse Practitioner, or Physician Tube Bender who is working directly with them, hada [...] for services as follows: HOME HEALTH AGENCY: [facility] PHONE: [phone] FAX: [phone] RN orders: Cardiopulmonary assessment, incisional assessment, assess [...] issues please call the Cardiac SurgeryOffice at [phone] FOR MEDICARE ONLY: In discussion with the [...] Questions: Agency name and contact information: [facility] VNA Patient location post discharge: home What services are requested: Registered Nurse Physical Therapy Occupational Therapy Start date: Responsible MD post discharge contact info: Arrangements for VNA/home care: As above. VN RN OR PCP TO PLEASE REMOVE CHEST TUBE SUTURES ON OR AFTER 09/30/16 Signed: Crispin Aranda PA-C 09/25/2016 [facility] Section of Cardiac Surgery [facility] [address] FAX [phone] Date: 09/25/2016 CC: ANURAG Alford Caryn E, APRN [address] [place] [address] documented in this encounter Discharge Instructions * [...] Alirio Esparza and/or the Cardiac Surgery Physician Tube Bender Team may be reached at . Antibiotic [...] Dr. Alirio Jones. You may use a [place] Track or treadmill but avoid any [...] PM EST Cardiac Surgery Progress Note: ID: [id number] S/p AVR, patch aortoplasty POD#2. PMH of [...] Gas) No results found for: PHART, PO2ART, KXS4ZHE Assessment/Plan: TPW out this am. (+) BM. [...] Signed: Crispin Aranda PA-C 09/24/2016 Team pager: [phone] after 5pm [facility] Section of Cardiac Surgery * Leonor Henson, IN SHOP SERVICE TECHNICIAN - 09/23/2016 10:48 AM EST Cardiac Surgery Progress Note: ID: [id number] s/p AVR, patch aortoplasty POD#2. PMH of [...] Gas) No results found for: PHART, PO2ART, MUH1ZEI Assessment/Plan: s/p AVR, patch aortoplasty POD#2. PMH of Neutropenia, HLD, HTN, Depression, obesity, . Transferred from [facility] yesterday and doing well. [...] on rounds. Signed: Leonor Henson APRN [facility] Section of Cardiac Surgery Date: 09/23/2016 * Nico Palacios PA - 09/22/2016 9:56 AM EST Cardiac Surgery Progress Note: ID: [id number] s/p AVR, patch aortoplasty POD#1. PMH of [...] NT, ND, soft. Ext: Moves all extremities. [place], well perfused. Incisions: C/D/I Tubes/Lines/Drains: PIV, richi, [...] Surgeon on rounds. Signed: EKATERINA KIM [facility] Section of Cardiac Surgery Date: 09/22/2016 * [...] left pleural effusion. T/L/D Al ETT CVL [place] CT Pacing wires ASSESSMENT, MANAGEMENT, and DECISION [...] Participants nursing;patient;physician * Plan of Care - Neyr Jaramillo PTA - 09/25/2016 9:53 AM EST [...] with outpatient services Lalitha Cohen SPTA Pager: [phone] Inpatient Physical Therapy Patient status, treatment interventions, and goals discussed with student. I am in agreement with all details and associated flowsheet rows as documented and was present for all aspects of the patient treatment session. Nerykatrina Jaramillo, [facility] Pager [phone] Problem: Acute Rehab Services Goal & Intervention Plan Goal: Bed Mobility Goal Stand Alone Therapy Goal Outcome: Ongoing (Interventions Implemented as Appropriate) 09/22/16 16109/25/16 09 Bed Mobility Goal Bed Mobility Goal, Time to Achieve 4 days -- Bed Mobility Goal, Activity Type scoot/bridge;supine to sit/sit to supine -- Bed Mobility Goal, [place] Level independent -- Bed Mobility Goal, Additional [...] Achieve 4 days -- Gait Training Goal, [place] Level independent -- Gait Training Goal, Distance [...] assist, home with home health Lalitha Cohen [facility] Pager: [phone] Inpatient Physical Therapy Patient status, treatment interventions, and goals discussed with student. I am in agreement with all details and associated flowsheet rows as documented and was present for all aspects of the patient treatment session. Nery Jaramillo, [facility] Pager [phone] Problem: Acute Rehab Services Goal & Intervention Plan Goal: Bed Mobility Goal Stand Alone Therapy Goal Outcome: Ongoing (Interventions Implemented as Appropriate) 09/22/16 16109/23/16 1412 Bed Mobility Goal Bed Mobility Goal, Time to Achieve 4 days -- Bed Mobility Goal, Activity Type scoot/bridge;supine to sit/sit to supine -- Bed Mobility Goal, [place] Level independent -- Bed Mobility Goal, Additional [...] Achieve 4 days -- Gait Training Goal, [place] Level independent -- Gait Training Goal, Distance [...] days -- Transfer Training Goal, Activity Type qlm-vn-iiree/adceo-vt-vje;zdq-xp-euqvh/tggei-hf-ewx -- Transfer Train Goal, [place] Level independent -- Transfer Training Goal, Additional Goal abides sternal precautions -- Transfer Training Goal, Outcome -- goal met * Consult Note - Jana Crenshaw RN - 09/23/2016 9:41 AM EST [facility] CARDIAC REHABILITATION Purnima Thacker was seen today [...] Another Service: (cardiac rehab) NICOLE HERNANDEZ, PT Pager:[phone] Inpatient Physical Therapy Problem: Acute Rehab Services Goal & Intervention Plan Goal: Bed Mobility Goal Stand Alone Therapy Goal Outcome: Ongoing (Interventions Implemented as Appropriate) 09/22/16 1611 Bed Mobility Goal Bed Mobility Goal, Time to Achieve 4 days Bed Mobility Goal, Activity Type scoot/bridge;supine to sit/sit to supine Bed Mobility Goal, [place] Level independent Bed Mobility Goal, Additional Goal able to abide sternal precautions during transfers Goal: Gait Training Goal Stand Alone Therapy Goal Outcome: Ongoing (Interventions Implemented as Appropriate) 09/22/16 1611 Gait Training Goal Gait Training Goal, Date Established 09/22/16 Gait Training Goal, Time to Achieve 4 days Gait Training Goal, [place] Level independent Gait Training Goal, Distance to Achieve ascend and descends 2 steps independently Goal: Goal Transfer Training Stand Alone Therapy Goal Outcome: Ongoing (Interventions Implemented as Appropriate) 09/22/16 1611 Goal Transfer Training Transfer Training Goal, Time to Achieve 4 days Transfer Training Goal, Activity Type ity-gs-xlium/tgozf-wz-fsp;mor-ht-dhotg/owhic-ih-fxp Transfer Train Goal, [place] Level independent Transfer Training Goal, Additional Goal [...] of completing AD's at home, chooses her eajxir-om-mxu, Martha Thacker (home) for her [facility], 2nd choice in friend, Nitesh Leroy [place], [place] Current Coping/Education/Information Needs: patient sitting up [...] who live close by, [place], and her tkssjk-fc-peb Martha Thacker who she has chosen to be her DPOAH. Also has a friend Nitesh Leroy who lives in [place], [place], also her DPOAH choice. Behavioral Health History: none on file in [facility] Substance Use/Abuse: none on file in [facility] Other Pertinent/Service Specific Information: none Health/Prescription Coverage: Primary Insurance: [employer] Secondary Insurance: none Prescription Coverage: yes, per patient no issues Preferred Pharmacy: ?? Other: none Primary Care Provider: Deborah Quiroga, IN SHOP SERVICE TECHNICIAN [phone] Patient/Caregiver Goals of Treatment: per medical team recommendations at discharge for CT surgery Potential Needs for Transition of Care: Rehab/SNF: TBD Home Health: TBD DME: no Dialysis: no Community Resources: non3 Transportation: ride home with a friend Other: none Anticipated Barriers to Discharge/Special Considerations: none anticipated at this time Plan: patient will need VNA services at discharge. The patient/authorization representative has been provided a list of Home Health Agencies/DME vendors which servetheir preferred geographic area. A letter describing our affiliations was reviewed with them and they were educated about their right to choose where referrals are placed. Patient requests referral to: [facility]. PHONE: [phone] FAX: [phone] Expected date of discharge: Fri/Sat? CM called VNA to confirm referral, talked with VALDO Bunn/intake who stated she was familiar w/patient & would monitor her progress through curaspan. Referral routed to the Cigarette Stamper for matching with agency/vendor and to provide any required information. A member of the Care Management team will continue to monitor progress, follow for continuity of care and assist with transition of care planning. Amanda Moreno RN Pager: [phone] * Op Note - Alirio Esparza MD - 09/21/2016 12:53 PM EST 09/23/2016 Purnima Thacker 1955 [id number] Preoperative Diagnosis: Symptomatic aortic stenosis Postoperative Diagnosis: Symptomatic aortic stenosis Procedure: Aortic valve replacement: Bovine Pericardial 25 mm Surgeon: Alirio Esparza M.D. Tube Bender: Philip BALL Anesthesia: General endotracheal anesthesia Drains: [...] Operative Note Patient Name: Purnima Thacker : [id number] MR#: [id number] Case Date: 09/21/2016 Surgeon: Surgeon(s) and Role: * Alirio Esparza MD - Primary * Nico Palacios PA - Physician Tube Bender Preoperative diagnosis: Postoperative diagnosis: Procedure(s) (LRB): @REPLACE [...] EDT Appointment Hematology [place] [address] 05/12/2024 10:00 AM EDT Office Visit Hematology [place] [address] Markel Borjas MD [facility] DR HEMATOLOGY [place] [address] 03/01/2025 4:15 PM EDT Office Visit Dermatology at [address] [place] [address] Marek Bonilla MD [address], [place] [address] Scheduled Orders Name Type Priority Associated Diagnoses [...] IMPLANTABLE DEVICES SCAN 09/26/2016 12:00 AM EST SHOE TURNER SCAN 09/26/2016 12:00 AM EST POTASSIUM Routine [...] SCAN EXT O RDR/RSLT * SCAN DOC: SHOE TURNER (09/26/2016 12:00 AM EST) Anatomical Region Laterality Modality Other Narrative 09/26/2016 12:00 AM EST Ordered by an unspecified provider. Scanning Provider MEDIA MGR SCAN EXT O RDR/RSLT * Potassium (09/25/2016 4:32 AM EST) Pathologist [facility] Potassium 4.4 3.5 - 5.0 mmol/L [facility] [...] ORDERABLE S [facility] [address] * (ABNORMAL) Differential, Automated (09/24/2016 9:56 AM EST) Neutrophil % 76.8 % [facility] Neutrophil Absolute 7.79(H) 1.70 - 6.10 x10(3)/mc L [facility] Lymph % 11.1 % [facility] Lymphocytes Abs 1.1 0.9 - 3.2 x10(3)/mc L [facility] Monocyte % 8.5 % [facility] Monocyte Abs 0.9 0.3 - 0.9 x10(3)/mc L [facility] Eos % 0.5 % [facility] Eosinophils Abs 0.0 0.0 - 0.4 x10(3)/[facility] Basophil % 0.2 % [facility] Baso Absolute 0.0 0.0 - 0.1 x10(3)/[facility] Immature Gran % 2.90 % [facility] Comment: Immature granulocytes(IG's)percentage and absolute count will include metamyelocytes, myelocytes, and promyelocytes. Blood smears from CBCs yielding IG's will be scanned manually for concordance. If this scan disagrees with the automated IG or if promyelocytes are noted, a manual differential will be performed. Immature Gran Absolute 0.29(H) 0.00 - 0.04 x10(3)/[facility] Blood specimen (specimen) 09/24/2016 9:56 AM EST 09/24/2016 10:04 AM EST Narrative Resulting Agency Comment Spec In Lab Alirio Esparza MD HEMATOLOGY ORDERABL ES [facility] [place] [address] * (ABNORMAL) Hemogram (09/24/2016 9:56 AM EST) White Blood Cell 10.1(H) 4.0 - 9.5 x10(3)/[facility] Red Blood Cell 2.87(L) 4.00 - 5.21 x10(6)/[facility] Hemoglobin 9.4(L) 11.7 - 15.5 gm/dL [facility] Hematocrit 28.3(L) 35.7 - 45.8 % [facility] Mean Cell Volume 98.6(H) 82.6 - 94.4 fL [facility] Mean Cell Hemoglobin 32.8(H) 27.1 - 32.0 pg [facility] Mean Cell Hemoglobin Concentration 33.2 31.7 - 35.0 gm/dL [facility] Platelet 141(L) 145 - 357 x10(3)/mc L [facility] RDW Standard Deviation 45.0 37.0 - 46.0 fL [facility] RDW coefficient of variation 12.6 11.5 - 14.1 % [facility] Mean Platelet Volume 9.4 7.6 - 12.9 fL [facility] NRBC% auto 1.1 % [facility] NRBC Absolute 0.110(H) 0.000 - 0.000 x10(3)/mc L [facility] Blood specimen (specimen) 09/24/2016 9:56 AM EST 09/24/2016 10:04 AM EST Narrative Resulting Agency Comment Spec In Lab Alirio Esparza MD HEMATOLOGY ORDERABL ES [facility] [place] [id number] * (ABNORMAL) Basic Metabolic Panel (non-fasting) (09/24/2016 9:56 AM EST) Glucose 111 65 - 199 mg/dL [facility] Comment:Diabetes: >=200 mg/d L plus symptoms Blood Urea Nitrogen 23(H) 8 - 18 mg/dL [facility] Comment:result rechecked-ART Creatinine 0.89 0.70 - 1.20 mg/dL [facility] Comment: Please note that the pediatric reference intervals supplied above were not validated at [facility]. Results from pediatric patients should be interpreted in conjunction to the patient's age, height and muscle mass. Sodium 138 135 - 145 mmol/L [facility] [...] questions. Chloride 98 98 - 107 mmol/L [facility] Carbon Dioxide 26 22 - 31 mmol/L [facility] Anion Gap 14 5 - 15 mmol/L [facility] Calcium 9.1 8.5 - 10.5 mg/dL [facility] [...] the following links into your internet browser. [email or web address] Blood specimen (specimen) 09/24/2016 9:56 AM EST 09/24/2016 10:04 AM EST Narrative Resulting Agency Comment Spec In Lab Alirio Esparza MD CHEMISTRY ORDERABLE S [facility] [place] [address] * XR Chest PA & Lateral (Generic) [...] EST) Potassium 4.5 3.5 - 5.0 mmol/L [facility] ORDERABLE S [facility] [address] * POCT Glucose (09/22/2016 8:17 AM EST) Glucose, POC 131 65 - 199 mg/dL [facility] Comment: Supplemental ranges: <140 mg/dL before meals <180 mg/dL all other times of the day Blood specimen (specimen) 09/22/2016 8:17 AM EST 09/22/2016 8:17 AM EST Narrative Authorizing Provider Result Slade Esparza MD POINT OF CARE TEST ORDERABLES [facility] [place] [address] * POCT Glucose (09/22/2016 4:01 AM EST) [facility] Glucose, POC 135 65 - 199 mg/dL [facility] Comment: Supplemental ranges: <140 mg/dL before meals <180 mg/dL all other times of the day Blood specimen (specimen) 09/22/2016 4:01 AM EST 09/22/2016 4:01 AM EST Alirio Esparza MD POINT OF CARE TEST ORDERABLES Performing Organization Address [facility] Co de Phone Number [facility] [place] [address] * Scan, Peripheral Blood (09/22/2016 4:00 AM EST) [facility] Plat estimate Normal [facility] RBC Morphology Abnormal [facility] Macrocyte 1-5 /HPF [facility] Plat, Giant Less than 1 /HPF [facility] Blood specimen (specimen) 09/22/2016 4:00 AM EST 09/22/2016 4:34 AM EST Narrative Resulting Agency Comment Spec In Lab Alirio Esparza MD HEMATOLOGY ORDERABL ES Performing Organization Address [facility] Co de Phone Number [facility] [place] [address] * Electrolytes panel (09/22/2016 4:00 AM EST) [facility] Sodium 145 135 - 145 mmol/L [facility] [...] questions. Chloride 107 98 - 107 mmol/L [facility] Carbon Dioxide 24 22 - 31 mmol/L [facility] Anion Gap 14 5 - 15 mmol/L [facility] Blood specimen (specimen) Venous Draw / Unknown 09/22/2016 4:00 AM EST 09/22/2016 4:34 AM EST Narrative Resulting Agency Comment Spec In Lab Alirio Esparza MD CHEMISTRY ORDERABLE S [facility] [place] [address] * (ABNORMAL) Differential, Automated (09/22/2016 4:00 AM EST) Neutrophil % 70.9 % [facility] Neutrophil Absolute 5.33 1.70 - 6.10 x10(3)/ L [facility] Lymph % 9.1 % [facility] Lymphocytes Abs 0.7(L) 0.9 - 3.2 x10(3)/[facility] Monocyte % 18.0 % [facility] Monocyte Abs 1.4(H) 0.3 - 0.9 x10(3)/ L [facility] Eos % 0.0 % [facility] Eosinophils Abs 0.0 0.0 - 0.4 x10(3)/[facility] Basophil % 0.1 % [facility] Baso Absolute 0.0 0.0 - 0.1 x10(3)/ L [facility] Immature Gran % 1.90 % [facility] Comment: Immature granulocytes(IG's)percentage and absolute count will include metamyelocytes, myelocytes, and promyelocytes. Blood smears from CBCs yielding IG's will be scanned manually for concordance. If this scan disagrees with the automated IG or if promyelocytes are noted, a manual differential will be performed. Immature Gran Absolute 0.14(H) 0.00 - 0.04 x10(3)/ L [facility] Blood specimen (specimen) 09/22/2016 4:00 AM EST 09/22/2016 4:34 AM EST Narrative Resulting Agency Comment Spec In Lab Alirio Esparza MD HEMATOLOGY ORDERABL ES Performing Organization Address City/[facility]/ZIP Co de Phone Number [facility] [place] [address] * (ABNORMAL) Hemogram (09/22/2016 4:00 AM EST) White Blood Cell 7.5 4.0 - 9.5 x10(3)/mc L [facility] Red Blood Cell 2.93(L) 4.00 - 5.21 x10(6)/mc L [facility] Hemoglobin 9.2(L) 11.7 - 15.5 gm/dL [facility] Hematocrit 28.0(L) 35.7 - 45.8 % [facility] Mean Cell Volume 95.6(H) 82.6 - 94.4 fL [facility] Mean Cell Hemoglobin 31.4 27.1 - 32.0 pg [facility] [facility] Mean Cell Hemoglobin Concentration 32.9 31.7 - 35.0 gm/dL [facility] Platelet 161 145 - 357 x10(3)/mc L [facility] RDW Standard Deviation 44.0 37.0 - 46.0 fL [facility] RDW coefficient of variation 12.6 11.5 - 14.1 % [facility] Mean Platelet Volume 9.3 7.6 - 12.9 fL [facility] NRBC% auto 0.3 % [facility] NRBC Absolute 0.020(H) 0.000 - 0.000 x10(3)/mc L [facility] Blood specimen (specimen) 09/22/2016 4:00 AM EST 09/22/2016 4:34 AM EST Narrative Resulting Agency Comment Spec In Lab Alirio Esparza MD HEMATOLOGY ORDERABL ES [facility] [place] [address] * (ABNORMAL) Cardiac Enzymes (09/22/2016 4:00 AM EST) Pathologist [facility] [place] Troponin-T 0.13(H) <=0.03 ng/mL [facility] Comment: 0.03 ng/mL: Represents the 99th percentile upper reference limit for normals. >0.03 ng/mL: Elevated cardiac troponin T level indicative of myocardial damage. Diagnosis of acute, evolving or recent AR requires a typical rise and gradual fall [...] [employer] 2000; 36: [id number]] Creatine Kinase 338(H) 0 - 160 unit/L [facility] Blood specimen (specimen) 09/22/2016 4:00 AM EST 09/22/2016 4:34 AM EST Narrative Resulting Agency Comment Spec In Lab Alirio Esparza MD CHEMISTRY ORDERABLE S [facility] [place] [address] * (ABNORMAL) Glucose, fasting (09/22/2016 4:00 AM EST) Pathologist [facility] [place] Glucose Fasting 137(H) 65 - 99 mg/dL [facility] Comment: ?Fasting* Glucose Interpretive Criteria [...] MD CHEMISTRY ORDERABLE S Performing Organization Address [facility] Co de Phone Number [facility] [place] [address] * (ABNORMAL) Creatinine (09/22/2016 4:00 AM EST) [facility] Signature Creatinine 0.69(L) 0.70 - 1.20 mg/dL [facility] Comment: Please note that the pediatric reference intervals supplied above were not validated at [facility]. Results from pediatric patients should [...] the following links into your internet browser. [email or web address] Blood specimen (specimen) 09/22/2016 4:00 AM EST 09/22/2016 4:34 AM EST Narrative Resulting Agency Comment Spec In Lab Alirio Esparza MD CHEMISTRY ORDERABLE S Performing Organization Address [facility] Co de Phone Number [facility] [place] [address] * BUN (09/22/2016 4:00 AM EST) Blood Urea Nitrogen 10 8 - 18 mg/dL [facility] Blood specimen (specimen) 09/22/2016 4:00 AM EST 09/22/2016 4:34 AM EST Narrative Resulting Agency Comment Spec In Lab Alirio Esparza MD CHEMISTRY ORDERABLE S Performing Organization Address City/[facility]/ZIP Co de Phone Number [facility] [place] [address] * POCT Glucose (09/21/2016 9:59 PM EST) Glucose, POC 146 65 - 199 mg/dL [facility] Comment: Supplemental ranges: <140 mg/dL before meals <180 mg/dL all other times of the day Blood specimen (specimen) 09/21/2016 9:59 PM EST 09/21/2016 9:59 PM EST Alirio Esparza MD POINT OF CARE TEST ORDERABLES Performing Organization Address [facility]/ZIP Co de Phone Number [facility] [place] [address] * POCT Glucose (09/21/2016 7:26 PM EST) Glucose, POC 152 65 - 199 mg/dL [facility] Comment: Supplemental ranges: <140 mg/dL before meals <180 mg/dL all other times of the day Blood specimen (specimen) 09/21/2016 7:26 PM EST 09/21/2016 7:26 PM EST Alirio Esparza MD POINT OF CARE TEST ORDERABLES Performing Organization Address City/[facility]/ZIP Co de Phone Number [facility] [place] [address] * POCT Glucose (09/21/2016 6:00 PM EST) Glucose, POC 146 65 - 199 mg/dL [facility] Comment: Supplemental ranges: <140 mg/dL before meals <180 mg/dL all other times of the day Blood specimen (specimen) 09/21/2016 6:00 PM EST 09/21/2016 6:00 PM EST Alirio Esparza MD POINT OF CARE TEST ORDERABLES [facility] [place] [address] * (ABNORMAL) BLOOD GAS 2 ARTERIAL (09/21/2016 4:42 PM EST) pH, Arterial 7.35(L) 7.35 - 7.45 [facility] PCO2, Arterial 48(H) 35 - 45 mmHg [facility] PO2, Arterial 108(H) 85 - 104 mmHg [facility] Bicarbonate, Arterial 26.0 20.0 - 26.0 mmol/L [facility] Base Excess, Arterial 0.5 -3.0 - 3.0 mmol/L [facility] Hgb Blood Gas 10.4(L) 11.7 - 15.5 gm/dL [facility] Oxyhemoglobin, Arterial 96.2 94.0 - 97.0 % [facility] Carboxyhemoglob in, Arterial 0.0 % [facility] Comment: Nonsmokers: 0.5-1.5% COHB Smokers: Variable, but usually less than 10% Toxic: 20-30% COHB Lethal: Greater than 60% COHB Methemoglobin, Arterial 0.7 <=1.5 % [facility] Na Whole Blood 139 135 - 145 mmol/L [facility] Whole Blood 106 98 - 107 mmol/L [facility] Gluc Whole Bld 147 65 - 199 mg/dL [facility] Comment:Diabetes: >=200 mg/d L plus symptoms. Lactate WB 1.2 0.5 - 2.2 mmol/L [facility] FIO2 Art 40 % [facility] PF Ratio Art 270 [facility] Blood specimen (specimen) 09/21/2016 4:42 PM EST 09/21/2016 4:42 PM EST Alirio Esparza MD POINT OF CARE TEST ORDERABLES Performing Organization Address [facility] Co de Phone Number [facility] [place] [address] * POCT Glucose (09/21/2016 4:07 PM EST) Glucose, POC 150 65 - 199 mg/dL [facility] Comment: Supplemental ranges: <140 mg/dL before meals <180 mg/dL all other times of the day Blood specimen (specimen) 09/21/2016 4:07 PM EST 09/21/2016 4:07 PM EST Alirio Esparza MD POINT OF CARE TEST ORDERABLES Performing Organization Address [facility] Co de Phone Number [facility] [place] [address] * (ABNORMAL) Hemoglobin (09/21/2016 4:05 PM EST) Hemoglobin 9.9(L) 11.7 - 15.5 gm/dL [facility] Blood specimen (specimen) 09/21/2016 4:05 PM EST 09/21/2016 4:20 PM EST Narrative Resulting Agency Comment Spec In Lab Alirio Esparza MD HEMATOLOGY ORDERABL ES Performing Organization Address [facility] Co de Phone Number [facility] [place] [address] * Potassium (09/21/2016 4:05 PM EST) Potassium 4.6 3.5 - 5.0 mmol/L [facility] [...] CHEMISTRY ORDERABLE S Performing Organization Address City/[facility]/ZIP Co de Phone Number [facility] [place] [address] * POCT Glucose (09/21/2016 2:52 PM EST) Glucose, POC 117 65 - 199 mg/dL [facility] Comment: Supplemental ranges: <140 mg/dL before meals <180 mg/dL all other times of the day Blood specimen (specimen) 09/21/2016 2:52 PM EST 09/21/2016 2:52 PM EST Alirio Esparza MD POINT OF CARE TEST ORDERABLES Performing Organization Address City/[facility]/ZIP Co de Phone Number [facility] [place] [address] * POCT Glucose (09/21/2016 1:51 PM EST) Glucose, POC 108 65 - 199 mg/dL [facility] Comment: Supplemental ranges: <140 mg/dL before meals <180 mg/dL all other times of the day Blood specimen (specimen) 09/21/2016 1:51 PM EST 09/21/2016 1:51 PM EST Alirio Esparza MD POINT OF CARE TEST ORDERABLES Performing Organization Address City/[facility]/ZIP Co de Phone Number [facility] [place] [address] * POCT Glucose (09/21/2016 12:54 PM EST) Glucose, POC 128 65 - 199 mg/dL [facility] Comment: Supplemental ranges: <140 mg/dL before meals <180 mg/dL all other times of the day Blood specimen (specimen) 09/21/2016 12:54 PM EST 09/21/2016 12:54 PM EST Alirio Esparza MD POINT OF CARE TEST ORDERABLES [facility] [place] [address] * EKG 12 Lead (09/21/2016 12:26 PM EST) Ventricular rate 87 BPM MUSE SYSTEM Atrial Rate 87 BPM MUSE SYSTEM P-R Interval 256 ms MUSE SYSTEM QRS Duration 90 ms MUSE SYSTEM Q-T Interval 406 ms MUSE SYSTEM QTC Calculated (Bezet) 488 ms MUSE SYSTEM Calculated P Patterson 24 degrees MUSE SYSTEM Calculated R Patterson 21 degrees MUSE SYSTEM Calculated T Patterson -5 degrees MUSE SYSTEM INTERPRETATION Sinus rhythm [...] course of the esophagus and below the [id number]. There is a right IJ PA catheter [...] the course of theesophagus and below the [id number]. There is a right IJ PA catheter [...] EST) pH, Arterial 7.41 7.35 - 7.45 [facility] PCO2, Arterial 42 35 - 45 mmHg [facility] PO2, Arterial 356(H) 85 - 104 mmHg [facility] Bicarbonate, Arterial 26.2(H) 20.0 - 26.0 mmol/L [facility] Base Excess, Arterial 1.6 -3.0 - 3.0 mmol/L [facility] Hgb Blood Gas 10.7(L) 11.7 - 15.5 gm/dL [facility] Oxyhemoglobin, Arterial 98.1(H) 94.0 - 97.0 % [facility] Carboxyhemoglob in, Arterial 0.3 % [facility] Comment: Nonsmokers: 0.5-1.5% COHB Smokers: Variable, but usually less than 10% Toxic: 20-30% COHB Lethal: Greater than 60% COHB Methemoglobin, Arterial 0.8 <=1.5 % [facility] Na Whole Blood 140 135 - 145 mmol/L [facility] K Whole Blood 3.8 3.5 - 5.0 mmol/L [facility] Comment: Please note: Patients with WBC >100,000 may have falsely elevated Potassium levels. Contact the Clinical Chemistry Laboratory if there are any questions. ICa Whole Blood 1.15(L) 1.15 - 1.33 mmol/L [facility] Comment: Note: ??Total bilirubin higher than 20 mg/dL may lead to falsely low ionized calcium. CL Whole Blood 106 98 - 107 mmol/L [facility] Gluc Whole Bld 135 65 - 199 mg/dL [facility] Comment:Diabetes: >=200 mg/d L plus symptoms. Lactate WB 2.2 0.5 - 2.2 mmol/L [facility] FIO2 Art 100 % [facility] PF Ratio Art 356 [facility] Blood specimen (specimen) 09/21/2016 12:20 PM EST 09/21/2016 12:20 PM EST Alirio Esparza MD POINT OF CARE TEST ORDERABLES [facility] [place] [address] * (ABNORMAL) BLOOD GAS 2 ARTERIAL (09/21/2016 10:54 AM EST) pH, Arterial 7.43 7.35 - 7.45 [facility] PCO2, Arterial 40 35 - 45 mmHg [facility] PO2, Arterial 297(H) 85 - 104 mmHg [facility] Bicarbonate, Arterial 26.0 20.0 - 26.0 mmol/L [facility] Base Excess, Arterial 1.6 -3.0 - 3.0 mmol/L [facility] Hgb Blood Gas 8.6(L) 11.7 - 15.5 gm/dL [facility] Oxyhemoglobin, Arterial 98.6(H) 94.0 - 97.0 % [facility] Carboxyhemoglob in, Arterial 0.5 % [facility] Comment: Nonsmokers: 0.5-1.5% COHB Smokers: Variable, but usually less than 10% Toxic: 20-30% COHB Lethal: Greater than 60% COHB Methemoglobin, Arterial 0.3 <=1.5 % [facility] Na Whole Blood 134(L) 135 - 145 mmol/L [facility] K Whole Blood 4.5 3.5 - 5.0 mmol/L [facility] Comment: Please note: Patients with WBC >100,000 may have falsely elevated Potassium levels. Contact the Clinical Chemistry Laboratory if there are any questions. ICa Whole Blood 1.16 1.15 - 1.33 mmol/L [facility] Comment: Note: ??Total bilirubin higher than 20 mg/dL may lead to falsely low ionized calcium. CL Whole Blood 104 98 - 107 mmol/L [facility] Gluc Whole Bld 240(H) 65 - 199 mg/dL [facility] Comment:Diabetes: >=200 mg/d L plus symptoms. Lactate WB 2.4(H) 0.5 - 2.2 mmol/L [facility] FIO2 Art 95 % [facility] Flow Art 0.[address] [facility] PF Ratio Art 313 [facility] Temp Art 36.[address] [facility] Blood specimen (specimen) 09/21/2016 10:54 AM EST 09/21/2016 10:54 AM EST Alirio Esparza MD POINT OF CARE TEST ORDERABLES [facility] [place] [address] * Thrombin time (09/21/2016 10:50 AM EST) Thrombin Time 19 15 - 20 sec [facility] Comment: A prolongation in the [...] MD HEMATOLOGY ORDERABLE S Performing Organization Address [facility] Co de Phone Number [facility] [place] [address] * Fibrinogen (09/21/2016 10:50 AM EST) Fibrinogen 228 180 - 510 mg/dL [facility] Comment: Called by: JONNATHAN, Read back by: MICHELLE ALEJANDRE_, Date/Time:09/21/16 11:11. A fibrinogen level >100 mg/dL is adequate for hemostasis in most patients without underlying bleeding disorders. Blood specimen (specimen) 09/21/2016 10:50 AM EST 09/21/2016 10:56 AM EST Narrative Resulting Agency Comment Spec In Lab Luis Enrique Quarles MD HEMATOLOGY ORDERABLE S [facility] [place] [address] * APTT (09/21/2016 10:50 AM EST) Partial Thromboplastin Time 32 25 - 35 sec [facility] Comment: The recommended therapeutic range for full dose, unfractionated heparin at [facility] is 80 ? 114 seconds. The use of the anti-Xa (heparin) level rather than the PTT is recommended for monitoring anticoagulation intensity in critically ill patients receiving unfractionated heparin by continuous IV infusion. Blood specimen (specimen) 09/21/2016 10:50 AM EST 09/21/2016 10:56 AM EST Narrative Resulting Agency Comment Spec In Lab Luis Enrique Quarles MD HEMATOLOGY ORDERABLE S Performing Organization Address [facility] de Phone Number [facility] [place] [address] * (ABNORMAL) Prothrombin Time (09/21/2016 10:50 AM EST) Prothrombin Time 18.7(H) 12.0 - 15.0 sec [facility] Comment: An INR <2.0 indicates [...] International Normalization Ratio 1.5(H) 0.9 - 1.1 [facility] Blood specimen (specimen) 09/21/2016 10:50 AM EST 09/21/2016 10:56 AM EST Narrative Resulting Agency Comment Spec In Lab Luis Enrique Quarles MD HEMATOLOGY ORDERABLE S Performing Organization Address [facility] de Phone Number [facility] [place] [address] * (ABNORMAL) Hemogram (09/21/2016 10:50 AM EST) White Blood Cell 14.7(H) 4.0 - 9.5 x10(3)/mc L [facility] Red Blood Cell 2.40(L) 4.00 - 5.21 x10(6)/mc L [facility] Hemoglobin 7.9(L) 11.7 - 15.5 gm/dL [facility] Hematocrit 23.2(L) 35.7 - 45.8 % [facility] Comment: This result has been called to MICHELLE GRIGSBY by ASHU MORENO on 09 21 2016 at 1102, and has been read back. Mean Cell Volume 96.7(H) 82.6 - 94.4 fL [facility] Mean Cell Hemoglobin 32.9(H) 27.1 - 32.0 pg [facility] Mean Cell Hemoglobin Concentration 34.1 31.7 - 35.0 gm/dL [facility] Platelet 117(L) 145 - 357 x10(3)/mc L [facility] RDW Standard Deviation 42.6 37.0 - 46.0 fL [facility] RDW coefficient of variation 12.1 11.5 - 14.1 % [facility] Mean Platelet Volume 9.2 7.6 - 12.9 fL [facility] NRBC% auto 0.1 % [facility] NRBC Absolute 0.020(H) 0.000 - 0.000 x10(3)/mc L [facility] Blood specimen (specimen) 09/21/2016 10:50 AM EST 09/21/2016 10:56 AM EST Narrative Resulting Agency Comment Spec In Lab Luis Enrique Quarles MD HEMATOLOGY ORDERABLE S Performing Organization Address City/[facility] Co de Phone Number [facility] [place] [address] * Prepare Platelets, Apheresis (09/21/2016 10:30 AM EST) Pathologist [facility] [place] Dispensed? Yes [facility] Blood specimen (specimen) 09/21/2016 10:30 AM EST 09/21/2016 10:28 AM EST Alirio Esparza MD BLOOD BANK PRODUCT ORDERABLES Performing Organization Address City/[facility]/ZIP Co de Phone Number [facility] [place] [address] * (ABNORMAL) BLOOD GAS 2 ARTERIAL (09/21/2016 10:05 AM EST) Pathologist [facility] [place] pH, Arterial 7.33(L) 7.35 - 7.45 [facility] PCO2, Arterial 54(Critic al) 35 - 45 mmHg [facility] Comment:Noted by instrumentation engineer. PO2, Arterial 218(H) 85 - 104 mmHg [facility] Bicarbonate, Arterial 27.9(H) 20.0 - 26.0 mmol/L [facility] Base Excess, Arterial 2.0 -3.0 - 3.0 mmol/L [facility] Hgb Blood Gas 8.6(L) 11.7 - 15.5 gm/dL [facility] Oxyhemoglobin, Arterial 98.4(H) 94.0 - 97.0 % [facility] Carboxyhemoglo bin, Arterial 0.5 % [facility] Comment: Nonsmokers: 0.5-1.5% COHB Smokers: Variable, but usually less than 10% Toxic: 20-30% COHB Lethal: Greater than 60% COHB Methemoglobin, Arterial 0.3 <=1.5 % [facility] Na Whole Blood 129(L) 135 - 145 mmol/L [facility] K Whole Blood 6.2(Criti gabrielle) 3.5 - 5.0 mmol/L [facility] Comment: Noted by instrumentation engineer. Please note: Patients with WBC >100,000 may have falsely elevated Potassium levels. Contact the Clinical Chemistry Laboratory if there are any questions. ICa Whole Blood 0.95(L) 1.15 - 1.33 mmol/L [facility] Comment: Note: ??Total bilirubin higher than 20 mg/dL may lead to falsely low ionized calcium. CL Whole Blood 100 98 - 107 mmol/L [facility] Gluc Whole Bld 289(H) 65 - 199 mg/dL [facility] Comment:Diabetes: >=200 mg/d L plus symptoms. Lactate WB 2.2 0.5 - 2.2 mmol/L [facility] Temp Art 37.[address] [facility] Blood specimen (specimen) 09/21/2016 10:05 AM EST 09/21/2016 10:05 AM EST Alirio Esparza MD POINT OF CARE TEST ORDERABLES [facility] [place] [address] * (ABNORMAL) BLOOD GAS 2 ARTERIAL (09/21/2016 9:44 AM EST) pH, Arterial 7.22(Criti gabrielle) 7.35 - 7.45 [facility] Comment:Noted by instrumentation engineer. PCO2, Arterial 70(Critica l) 35 - 45 mmHg [facility] Comment:Noted by instrumentation engineer. PO2, Arterial 224(H) 85 - 104 mmHg [facility] Bicarbonate, Arterial 27.8(H) 20.0 - 26.0 mmol/L [facility] Base Excess, Arterial 0.0 -3.0 - 3.0 mmol/L [facility] Hgb Blood Gas 8.7(L) 11.7 - 15.5 gm/dL [facility] Oxyhemoglobin, Arterial 98.5(H) 94.0 - 97.0 % [facility] Carboxyhemoglob in, Arterial 0.6 % [facility] Comment: Nonsmokers: 0.5-1.5% COHB Smokers: Variable, but usually less than 10% Toxic: 20-30% COHB Lethal: Greater than 60% COHB Methemoglobin, Arterial 0.3 <=1.5 % [facility] Na Whole Blood 131(L) 135 - 145 mmol/L [facility] K Whole Blood 5.9(H) 3.5 - 5.0 mmol/L [facility] Comment: Please note: Patients with WBC >100,000 may have falsely elevated Potassium levels. Contact the Clinical Chemistry Laboratory if there are any questions. ICa Whole Blood 1.00(L) 1.15 - 1.33 mmol/L [facility] Comment: Note: ??Total bilirubin higher than 20 mg/dL may lead to falsely low ionized calcium. CL Whole Blood 101 98 - 107 mmol/L [facility] Gluc Whole Bld 227(H) 65 - 199 mg/dL [facility] Comment:Diabetes: >=200 mg/d L plus symptoms. Lactate WB 2.1 0.5 - 2.2 mmol/L [facility] Blood specimen (specimen) 09/21/2016 9:44 AM EST 09/21/2016 9:44 AM EST Alirio Esparza MD POINT OF CARE TEST ORDERABLES Performing Organization Address [facility] de Phone Number [facility] [place] [address] * (ABNORMAL) Hemoglobin (09/21/2016 9:42 AM EST) Hemoglobin 7.2(L) 11.7 - 15.5 gm/dL [facility] Blood specimen (specimen) 09/21/2016 9:42 AM EST 09/21/2016 9:51 AM EST Narrative Resulting Agency Comment Spec In Lab Alirio Esparza MD HEMATOLOGY ORDERABL ES Performing Organization Address [facility] Phone Number [facility] [place] [address] * Platelet count (09/21/2016 9:42 AM EST) Platelet 159 145 - 357 x10(3)/mc L [facility] Immature Plt % 1.6 0.0 - 7.4 % [facility] Comment: Limitation of the Immature Platelet Fraction (IPF)-May be less reliable when the platelet count is less than 33d524/uL due to statistical imprecision. The IPF value [...] in a decreased state of production. References: [employer] The Clinical Value of the Immature Platelet Fraction (IPF) in Cell Recovery Document Number 10-1143 12/2010 [employer] The Role of the Immature Platelet Fraction (IPF) in the Differential Diagnosis of Thrombocytopenia, Document MKT-10-1209 V05/07/15 P012/13 Blood specimen (specimen) 09/21/2016 9:42 AM EST 09/21/2016 9:51 AM EST Narrative Resulting Agency Comment Spec In Lab Alirio Esparza MD HEMATOLOGY ORDERABL ES Performing Organization Address [facility] Co de Phone Number [facility] [place] [address] * (ABNORMAL) Hematocrit (09/21/2016 9:42 AM EST) Hematocrit 21.6(L) 35.7 - 45.8 % [facility] Comment: This result has been called to MICHELLE ALEJANDRE by Serjio Frazier on 09 21 2016 at 0957, and has been read back. Blood specimen (specimen) 09/21/2016 9:42 AM EST 09/21/2016 9:51 AM EST Narrative Resulting Agency Comment Spec In Lab Alirio Esparza MD HEMATOLOGY ORDERABL ES Performing Organization Address [facility] Co de Phone Number [facility] [place] [address] * Fibrinogen (09/21/2016 9:42 AM EST) Fibrinogen 219 180 - 510 mg/dL [facility] Comment: Called by: JONNATHAN, Read back by: MICHELLE ALEJANDRE_, Date/Time:09/21/16 10:03_. A fibrinogen level >100 mg/dL is adequate for hemostasis in most patients without underlying bleeding disorders. Blood specimen (specimen) 09/21/2016 9:42 AM EST 09/21/2016 9:51 AM EST Narrative Resulting Agency Comment Spec In Lab Alirio Esparza MD HEMATOLOGY ORDERABL ES [facility] [place] [address] * (ABNORMAL) BLOOD GAS 2 ARTERIAL (09/21/2016 9:10 AM EST) pH, Arterial 7.36 7.35 - 7.45 [facility] PCO2, Arterial 48(H) 35 - 45 mmHg [facility] PO2, Arterial 295(H) 85 - 104 mmHg [facility] Bicarbonate, Arterial 26.0 20.0 - 26.0 mmol/L [facility] Base Excess, Arterial 0.5 -3.0 - 3.0 mmol/L [facility] Hgb Blood Gas 8.0(L) 11.7 - 15.5 gm/dL [facility] Oxyhemoglobin, Arterial 98.3(H) 94.0 - 97.0 % [facility] Carboxyhemoglob in, Arterial 1.0 % [facility] Comment: Nonsmokers: 0.5-1.5% COHB Smokers: Variable, but usually less than 10% Toxic: 20-30% COHB Lethal: Greater than 60% COHB Methemoglobin, Arterial 0.3 <=1.5 % [facility] Na Whole Blood 135 135 - 145 mmol/L [facility] K Whole Blood 5.4(H) 3.5 - 5.0 mmol/L [facility] Comment: Please note: Patients with WBC >100,000 may have falsely elevated Potassium levels. Contact the Clinical Chemistry Laboratory if there are any questions. ICa Whole Blood 0.93(L) 1.15 - 1.33 mmol/L [facility] Comment: Note: ??Total bilirubin higher than 20 mg/dL may lead to falsely low ionized calcium. CL Whole Blood 102 98 - 107 mmol/L [facility] Gluc Whole Bld 195 65 - 199 mg/dL [facility] Comment:Diabetes: >=200 mg/d L plus symptoms. Lactate WB 1.8 0.5 - 2.2 mmol/L [facility] Temp Art 37.[address] [facility] Blood specimen (specimen) 09/21/2016 9:10 AM EST 09/21/2016 9:10 AM EST Alirio Esparza MD POINT OF CARE TEST ORDERABLES [facility] [place] [address] * Surgical Pathology Report (09/21/2016 9:09 AM EST) Final Diagnosis [id number] ?Location: 3T The signing pathologist has (i) [...] ?. (R1) ??ADELITA 09/24/2016 9:32 AM EST [facility] AORTIC STRUCTURE / Unknown 09/21/2016 9:09 AM EST 09/21/2016 9:09 AM EST Alirio Esparza MD PATHOLOGY/CYTOLOGY ORDERABLES Performing Organization Address City/[facility]/[place] [address] * Specimen to Pathology (surgical or derm) (09/21/2016 9:09 AM EST) AP Specimen 09/21/2016 9:09 AM EST 09/21/2016 9:09 AM EST Narrative [facility] - 09/21/2016 9:09 AM EST Specimen requisition ordered. ??Separate Pathology report to follow Alirio Esparza MD PATHOLOGY/CYTOLOGY ORDERABLES Performing Organization Address [facility] [place] [address] * (ABNORMAL) BLOOD GAS 2 ARTERIAL (09/21/2016 8:50 AM EST) pH, Arterial 7.41 7.35 - 7.45 [facility] PCO2, Arterial 33(L) 35 - 45 mmHg [facility] PO2, Arterial 348(H) 85 - 104 mmHg [facility] Bicarbonate, Arterial 20.6 20.0 - 26.0 mmol/L [facility] Base Excess, Arterial -4.1(L) -3.0 - 3.0 mmol/L [facility] Hgb Blood Gas 9.5(L) 11.7 - 15.5 gm/dL [facility] Oxyhemoglobin, Arterial 98.8(H) 94.0 - 97.0 % [facility] Carboxyhemoglob in, Arterial 0.3 % [facility] Comment: Nonsmokers: 0.5-1.5% COHB Smokers: Variable, but usually less than 10% Toxic: 20-30% COHB Lethal: Greater than 60% COHB Methemoglobin, Arterial 0.3 <=1.5 % [facility] Na Whole Blood 137 135 - 145 mmol/L [facility] K Whole Blood 4.0 3.5 - 5.0 mmol/L [facility] [...] Whole Blood 105 98 - 107 mmol/L [facility] Gluc Whole Bld 93 65 - 199 mg/dL [facility] Comment:Diabetes: >=200 mg/d L plus symptoms. Lactate WB 1.0 0.5 - 2.2 mmol/L [facility] Blood specimen (specimen) 09/21/2016 8:50 AM EST 09/21/2016 8:50 AM EST Alirio Esparza MD POINT OF CARE TEST ORDERABLES Performing Organization Address City/State/[facility] Co de Phone Number [facility] [place] [address] * (ABNORMAL) BLOOD GAS 2 ARTERIAL (09/21/2016 8:18 AM EST) pH, Arterial 7.42 7.35 - 7.45 [facility] PCO2, Arterial 36 35 - 45 mmHg [facility] PO2, Arterial 283(H) 85 - 104 mmHg [facility] Bicarbonate, Arterial 22.8 20.0 - 26.0 mmol/L [facility] Base Excess, Arterial -2.0 -3.0 - 3.0 mmol/L [facility] Hgb Blood Gas 12.6 11.7 - 15.5 gm/dL [facility] Oxyhemoglobin, Arterial 99.0(H) 94.0 - 97.0 % [facility] Carboxyhemoglob in, Arterial 0.6 % [facility] Comment: Nonsmokers: 0.5-1.5% COHB Smokers: Variable, but usually less than 10% Toxic: 20-30% COHB Lethal: Greater than 60% COHB Methemoglobin, Arterial 0.0 <=1.5 % [facility] Na Whole Blood 144 135 - 145 mmol/L [facility] K Whole Blood 4.0 3.5 - 5.0 mmol/L [facility] Comment: Please note: Patients with WBC >100,000 may have falsely elevated Potassium levels. Contact the Clinical Chemistry Laboratory if there are any questions. ICa Whole Blood 1.22 1.15 - 1.33 mmol/L [facility] Comment: Note: ??Total bilirubin higher than 20 mg/dL may lead to falsely low ionized calcium. CL Whole Blood 106 98 - 107 mmol/L [facility] Gluc Whole Bld 102 65 - 199 mg/dL [facility] Comment:Diabetes: >=200 mg/d L plus symptoms. Lactate WB 1.2 0.5 - 2.2 mmol/L [facility] FIO2 Art 95 % [facility] Flow Art 1.[address] [facility] PF Ratio Art 298 [facility] Temp Art 35.[address] [facility] Blood specimen (specimen) 09/21/2016 8:18 AM EST 09/21/2016 8:18 AM EST Alirio Esparza MD POINT OF CARE TEST ORDERABLES [facility] [place] [address] * Prepare RBC (09/21/2016 7:05 AM EST) Dispensed? Yes [facility] Blood specimen (specimen) 09/21/2016 7:05 AM EST 09/21/2016 7:02 AM EST Alirio Esparza MD BLOOD BANK PRODUCT ORDERABLES [facility] [place] [address] * POCT Glucose (09/21/2016 6:42 AM EST) Glucose, POC 104 65 - 199 mg/dL [facility] Comment: Supplemental ranges: <140 mg/dL before meals <180 mg/dL all other times of the day Blood specimen (specimen) 09/21/2016 6:42 AM EST 09/21/2016 6:42 AM EST Alirio Esparza MD POINT OF CARE TEST ORDERABLES Performing Organization Address [facility] Co de Phone Number [facility] [place] [address] documented in this encounter Visit Diagnoses Diagnosis [...] dose on Wed09/21/16 at 1230, Until Discontinued, Stephan teeth, Routine Given 09/25/2016 9:40 AM EST [...] if phenyleprine and/or vasopressin ineffective.Call pager # [phone] if initiated., Routine Rate/Dose Change 09/21/2016 2:27 [...] 2.0 L/min/M2. Maximum volume 2 L. Call clearing house clerk for additional fluid orders: pager #[phone]. Rate/Dose Verify 09/22/2016 10:00 AM EST 10 [...] RN) 0000 (Not Given - Provider: Alie hWitfield RN - Reason: Patient/family refused)0600 (Not Given - Provider: Breanna Olivas RN - Reason: Patient/family refused)0942 (Given - Provider: Joselyn Caceres RN - Comment: not given at 0600)1600 (Due - Provider: Kendall Martínez [facility]) aspirin chewable tablet 81 mg(Linked [...] dose on Wed09/21/16 at 1230, Until Discontinued, Stephan teeth, Routine 0900 (Not Given - Provider: [...] Routine documented in this encounter Care Teams Carrier Blower Relationship Specialty Start Date End Date Deborah Quiroga APRN PCP - General Family Medicine 03/24/16 02/04/23 documented as of this encounter
--- OUTSIDE RECORDS SUMMARY | 2024-04-25 16:19 | XMS_ITS | Encounter Summary ---
Author Organization [facility] Address [facility] [place] [address] Care Team Providers Care Mortician Helper Name Role Phone Deborah Quiroga ANURAG Primary Care Provider [phone] Encounter Details Date Type Department Care Team (Latest Contact Info) Description 08/18/2016 4:40 PM EST Laboratory [place] [address] Aortic valve stenosis, unspecified etiology [...] AM EDT Appointment Hematology [place] [address] 05/12/2024 10:00 AM EDT Office Visit Hematology [place] [address] Markel Borjas MD [facility] [address] HEMATOLOGY [place] [address] 03/01/2025 4:15 PM EDT Office Visit Dermatology at [address] [phone] Marek Bonilla MD [address], [place] [address] documented as of this encounter Procedures Procedure [...] 4:50 PM EST) ABORH Type Recheck Completed [facility] Blood specimen (specimen) 08/18/2016 4:50 PM EST 08/18/2016 5:27 PM EST Narrative Resulting Agency Comment Spec In Lab Alirio Esparza MD BLOOD BANK LAB [facility] Organization Address City/State/ZIP Co de Phone Number [facility] [place] [address] * Antibody screen (08/18/2016 4:50 PM EST) Ab Screen Interp Negative [facility] Expires at 2359 on: 09/24/2016 [facility] Comment: Corrected from 09/17/16 12:00 [Unknown] on 09/09/16 02:32 by Shireen Treviño Blood specimen (specimen) 08/18/2016 4:50 PM EST 08/18/2016 5:11 PM EST Narrative Resulting Agency Comment Spec In Lab Alirio Esparza MD BLOOD BANK LAB [place] Performing Organization Address City/[facility]/ZIP Co de Phone Number [facility] [place] [address] * ABO/Rh Typing (08/18/2016 4:50 PM EST) ABORH Type B Pos [facility] Blood specimen (specimen) 08/18/2016 4:50 PM EST 08/18/2016 5:11 PM EST Narrative Resulting Agency Comment Spec In Lab Alirio Esparza MD BLOOD BANK LAB [place] Performing Organization Address [facility] Co de Phone Number [facility] [place] [address] * Basic Metabolic Panel (non-fasting) (08/18/2016 4:50 PM EST) [facility] Glucose 82 65 - 199 mg/dL [facility] [...] the following links into your internet browser. [email or web address] [email or web address] Blood specimen (specimen) 08/18/2016 4:50 PM EST 08/18/2016 5:03 PM EST Narrative Resulting Agency Comment Spec In Lab Alirio Esparza MD CHEMISTRY ORDERABLE S [facility] [place] [address] documented in this encounter Visit Diagnoses Diagnosis Aortic valve stenosis, unspecified etiology documented in this encounter Care Teams Mortician Helper Relationship Specialty Start Date End Date Deborah Quiroga APRN PCP - General Family Medicine 03/24/16 02/04/23 documented as of this encounter
--- OUTSIDE RECORDS SUMMARY | 2024-04-25 16:19 | XMS_ITS | Encounter Summary ---
Author Organization [facility] Address [facility] [place] [address] Care Team Providers Care Human Resources Executive Assistant Name Role Phone Junaid Deborah Shields APRN Primary Care Provider [phone] Encounter Details Date Type Department Care Team (Latest Contact Info) Description 06/19/2016 - 06/19/2016 11:59 PM EST Hospital Encounter Radiology Library at [facility] [place] [phone] Nitesh Pina Jr., MD [facility] [place] [address] Pain Discharge Disposition: Home Social History Tobacco [...] AM EDT Appointment Hematology [place] [address] 05/12/2024 10:00 AM EDT Office Visit Hematology [place] [address] Markel Borjas MD [facility] [address] [place] [address] 03/01/2025 4:15 PM EDT Office Visit Dermatology at [place] [address] [place] [phone] Marek Bonilla MD [address] [facility], [place] [address] documented as of this encounter Procedures Procedure [...] Jr., MD IMG FILM LIBRARY ORD ERABLES [place], [place] documented in this encounter Visit Diagnoses Diagnosis Pain Generalized pain documented in this encounter Care Teams Human Resources Executive Assistant Relationship Specialty Start Date End Date Deborah Quiroga, CASER UP PCP - General Family Medicine 03/24/16 02/04/23 documented as of this encounter
--- OUTSIDE RECORDS SUMMARY | 2024-04-25 16:19 | XMS_ITS | Encounter Summary ---
Author Organization [facility] [address] Care Team Providers Care Apn Name Role Phone Ashley Quirogazac Shields APRN Primary Care Provider [phone] Encounter Details Date Type Department Care Team (Late st Contact Info) Description 07/03/2016 External Results [place]ematology [place] [phone] Matthew Cervantes, DO [address] [place] [phone] Social History Tobacco Use Types Packs/Day Years [...] AM EDT Appointment [place]ology [place] [phone] 05/12/2024 10:00 AM EDT Office Visit [place]ology [place] [address] Markel Borjas MD [facility] [address] [place]EMATOLOG[place] [address] 03/01/2025 4:15 PM EDT Office Visit Dermatology at [place] [address] [place] [phone] Marek Bonilla MD [address], [place] [address] documented as of this encounter Procedures Procedure Name Priority Date/Time Associated Diagnosis Comments BONE MARROW ASPIRATION PERFO RMED WITH BONE MARRROW BIOPSY Routine 06/28/2016 documented in this encounter Results * BONE MARROW ASPIRATION PREFORMED WITH BONE MARRROW BIOPSY (06/28/2016) Matthew Cervantes DO GENERAL SURGI DANIEL ORDERABLES documented in this encounter Visit Diagnoses Not on filedocumented in this encounter Care Teams Apn Relationship Specialty Start Date End Date Deborah Quiroga APRN PCP - General Family Medicine 03/24/16 02/04/23 documented as of this encounter
--- OUTSIDE RECORDS SUMMARY | 2024-04-25 16:19 | XMS_ITS | Encounter Summary ---
[place] [address] Care Team Providers Care Renal Dialysis Technician Name Role Phone Ashley Quirogan Cornelius ANURAG Primary Care Provider [phone] Reason for Visit * Reason Onset Date Comments Medical Care Coordination 09/14/2016 Encounter Details Date Type Department Care Team (Late st Contact Info) Description 09/14/2016 Telephone Hematology [place] [phone] Alexandrea Greenwood RN Medical Care Coordination Social [...] 09/14/2016 9:10 AM EST Message received from personal secretary: Injection/Infusion Referral Call placed to [facility] Infusion Room Spoke charis Bragg. Services to be provided for pt are: [facility] 09/16/16 [facility] confirmed they would provide services to pt and would contact with appointment time. Pt aware to expect the phone call ??orders faxed to [phone]). documented in this encounter Plan of Treatment Upcoming Encounters Date Type Department Care Team (Late st Contact Info) Description 05/12/2024 9:00 AM EDT Appointment Hematology [place] [address] 05/12/2024 10:00 AM EDT Office Visit Hematology [place] [address] Markel Borjas MD [facility] [address] [place] [address] 03/01/2025 4:15 PM EDT Office Visit Dermatology at [place] [address] [place] [phone] Marek Bonilla MD [address], [place] [address] documented as of this encounter Visit Diagnoses Not on filedocumented in this encounter Care Teams Renal Dialysis Technician Relationship Specialty Start Date End Date Deborah Quiroga APRN PCP - General Family Medicine 03/24/16 02/04/23 documented as of this encounter
--- OUTSIDE RECORDS SUMMARY | 2024-04-25 16:19 | XMS_ITS | Encounter Summary ---
Author Organization [facility] Address [facility] [place] [address] Care Team Providers Care Bowl Sander Name Role Phone Deborah Quiroga ANURAG Primary Care Provider [phone] Encounter Details Date Type Department Care Team (Late st Contact Info) Description 07/22/2016 External Results Hematology [place] [phone] Alexandrea Greenwood RN Neutropenia, unspecified type Social [...] EDT Appointment Hematology [place] [phone] 05/12/2024 10:00 AM EDT Office Visit Hematology [place] [phone] Markel Borjas MD [facility] [place] [address] 03/01/2025 4:15 PM EDT Office Visit Dermatology at [address] [address] Marek Bonilla MD [address], [place] [address] documented as of this encounter Procedures Procedure Name Priority Date/Time Associated Diagnosis Comments COPPER, SERUM Routine 07/20/2016 10:30 AM EST Neutropenia, unspecified type CMV PCR, QUANTITATIVE Routine 07/20/2016 10:30 AM EST Neutropenia, unspecified type MONONUCLEOSIS SCREEN (APD/JEANNINE/[facility]) Routine 07/20/2016 10:30 AM EST Neutropenia, unspecified type CBC (WITH DIFF) Routine 07/20/2016 10:30 AM EST Neutropenia, unspecified type documented in this encounter Results * Copper, serum (07/20/2016 10:30 AM EST) Copper (NOVEMBER) 1.09 0.75 - 1.45 EXTERNAL LAB Blood specimen (specimen) 07/20/2016 10:30 AM EST Markel Borjas MD LAB SEND OUT ORDER JODIE Performing Organization Address City/[facility]/ZIP Co de Phone Number EXTERNAL LAB * CMV PCR, Quantitative (07/20/2016 10:30 AM EST) CMV PCR,Quantitati ve undetected EXTERNAL LAB Blood specimen (specimen) 07/20/2016 10:30 AM EST Markel Borjas MD MOLECULAR ORDERABL ES Performing Organization Address City/[facility] [...] type documented in this encounter Care Teams Bowl Sander Relationship Specialty Start Date End Date Deborah Quiroga, AIRWAY CONTROLLER PCP - General Family Medicine 03/24/16 02/04/23 documented as of this encounter
--- OUTSIDE RECORDS SUMMARY | 2024-04-25 16:19 | XMS_ITS | Encounter Summary ---
[place] [address] Care Team Providers Care Outside Collector Name Role Phone Deborah Quiroga APRN Primary Care Provider [phone] Reason for Visit * Reason Onset Date Comments Prior Authorization 09/11/2016 Neulasta Encounter Details Date Type Department Care Team (Late st Contact Info) Description 09/11/2016 Telephone Hematology [place] [phone] Monica Wick Prior Authorization (Neulasta ) Social [...] AM EST Prior Auth for Neulasta (Approved) [facility] is a covered facility under the members plan. ID# [id number] Call placed to [phone] Rationale: Can you please start a PA for this pt to receive as outpatient at [facility] on 09/16/16? 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 ??Her last ANC was 0.56 (or 560) on 08/04/16. ??This will need to be approved through her medical as out patient. J code for neulasta. ?? [id number]. Spoke w/ Anna Marie Call Reference [id number] Copay: $ Deductible is not met, patient will have out of pocket costs until deductible is met. documented in this encounter Plan of Treatment Upcoming Encounters Date Type Department Care Team (Late st Contact Info) Description 05/12/2024 9:00 AM EDT Appointment Hematology [place] [address] 05/12/2024 10:00 AM EDT Office Visit Hematology [place] [address] Markel Borjas MD [facility] [address] [place] [address] 03/01/2025 4:15 PM EDT Office Visit Dermatology at [place] [address] [place] [address] Marek Bonilla MD [address], [place] [address] documented as of this encounter Visit Diagnoses Not on filedocumented in this encounter Care Teams Outside Collector Relationship Specialty Start Date End Date Deborah Quiroga APRN PCP - General Family Medicine 03/24/16 02/04/23 documented as of this encounter
--- OUTSIDE RECORDS SUMMARY | 2024-04-25 16:19 | XMS_ITS | Encounter Summary ---
Author Organization [facility] Address [facility] [place] [address] Care Team Providers Care Executive Office Manager Name Role Phone Deborah Quiroga ANURAG Primary Care Provider [phone] Encounter Details Date Type Department Care Team (Late st Contact Info) Description 08/18/2016 Orders [place] [address] Alirio Esparza MD Aortic valve stenosis, unspecified [...] AM EDT Appointment Hematology [place] [address] 05/12/2024 10:00 AM EDT Office Visit Hematology [place] [address] Markel Borjas MD [facility] DR HEMAT[place] [address] 03/01/2025 4:15 PM EDT Office Visit Dermatology at [address] [address] Marek Bonilla MD [address], [place] [address] documented as of this encounter Results * [...] the following links into your internet browser. [email or web address] Blood specimen (specimen) 08/18/2016 4:50 PM EST 08/18/2016 5:03 PM EST Narrative Resulting Agency Comment Spec In Lab Alirio Esparza MD CHEMISTRY ORDERABLE S [facility] [place] [address] documented in this encounter Visit Diagnoses Diagnosis Aortic valve stenosis, unspecified etiology documented in this encounter Care Teams Executive Office Manager Relationship Specialty Start Date End Date Deborah Quiroga, ANURAG PCP - General Family Medicine 03/24/16 02/04/23 documented as of this encounter
--- OUTSIDE RECORDS SUMMARY | 2024-04-25 16:19 | XMS_ITS | Encounter Summary ---
Author Organization Formerly [place] [address] Care Team Providers Care Plug Paster Name Role Phone Deborah Quiroga APRN Primary Care Provider Encounter Details Date Type Department Care Team (Latest Contact Info) Description 07/10/2016 2:54 PM EST - 07/10/2016 11:59 PM EST Hospital [place] [phone] Discharge Disposition: Home Social History Tobacco Use [...] AM EDT Appointment Hematology [place] [address] 05/12/2024 10:00 AM EDT Office Visit Hematology [place] [address] Markel Borjas MD [facility] [address] [place] [address] 03/01/2025 4:15 PM EDT Office Visit Dermatology at [place] [address] [facility] [place] [address] Marek Boinlla MD [address] [facility], [place] [address] documented as of this encounter Procedures Procedure Name Priority Date/Time Associated Diagnosis Comments BONE MARROW FINAL REPORT Routine 07/10/2016 3:43 PM EST documented in this encounter Results * Bone Marrow Final Report (07/10/2016 3:43 PM EST) Final Diagnosis [id number] ?Location: OPW The signing pathologist has (i) examined the relevant preparation(s) for the specimen(s) and (ii) rendered or confirmed the diagnosis(es). . ? Bone Marrow Final DIAGNOSIS BONE MARROW (PERIPHERAL SMEAR, ASPIRATE SMEAR, TOUCH PREP, CLOT SECTION, CORE BIOPSY); [OSR# [id number], COLLECTED 06/23/2016, 19 SLIDES]: ?? 1. ??Normocellular [...] clonal lymphoproliferative or myeloproliferative ? disorder (OSR# [id number]) ?Chromosome analysis on the marrow aspirate revealed a normal female karyotype; ?46,XX[25] ??(OSR# [id number]) Electronically signed by: ??Elian Guillen MD Verified: [...] 3/uL Band/Seg 0.52 x103/uL; Lymph 0.75 x103/uL; [place] 0.15 x103/uL; Eos 0.01%; Baso 0.01 x10 [...] plasma cells represent 3-4% of the cellularity [place] ? Polytypic plasma cell staining, high background Lambda ?Polytypic plasma cell staining, high background Block: ? B2 (Core biopsy 2) Fixative: ?? Formalin ANTIBODY: ?? RESULT/COMMENT CD3 ? Scattered small lymphocytes and lymphoid aggregates highlighted CD20 ?Few scattered small lymphocytes stain ( ?? <CD3 in aggregates) CD138 ? Scattered plasma cells represent 3-4% of the cellularity [place] ? Polytypic plasma cell staining, high background Lambda ?Polytypic plasma cell staining, high background Note: The immunoperoxidase stains reported above were developed and their performance characteristics determined by [facility]. ??They have not been cleared [...] CONSULTATION CASE A - 19 slides labeled [id number], collection date 06/23/2016. [id number] Report to: [facility] Surgical Pathology Department [facility], [facility], 2nd Floor [address] [place] [address] ??[id number] 07/13/2016 11:38 AM EST [facility] Consult Case 07/10/2016 3:43 PM EST 07/10/2016 3:43 PM EST Nitesh Pina Jr., MD PATHOLOGY/CYTOLOGY O RDERABLES [facility] [place] [address] documented in this encounter Visit Diagnoses Not on filedocumented in this encounter Care Teams Plug Paster Relationship Specialty Start Date End Date eDborah Quiroga, ANCHOR OPERATOR PCP - General Family Medicine 03/24/16 02/04/23 documented as of this encounter
--- OUTSIDE RECORDS SUMMARY | 2024-04-25 16:19 | XMS_ITS | Encounter Summary ---
[place] [address] Care Team Providers Care Automobile Leasing Supervisor Name Role Phone Deborah Quiroga ANURAG Primary Care Provider [phone] Reason for Visit * Reason Onset Date Comments Medical Care Coordination 07/31/2016 Encounter Details Date Type Department Care Team (Late st Contact Info) Description 07/31/2016 Telephone Hematology [place] [address] Alexandrea Greenwood RN Medical Care Coordination Social [...] 08/04/15 RN spoke with Aydee of the [facility] lab who states they can draw pt's cbc on 08/04/15, RN faxed lab req to [phone] at Aydee's request. RN instructed pt on Dr. Borjas's direction above. Pt verbalized understanding. documented in this encounter Plan of Treatment Upcoming Encounters Date Type Department Care Team (Late st Contact Info) Description 05/12/2024 9:00 AM EDT Appointment Hematology [place] [address] 05/12/2024 10:00 AM EDT Office Visit Hematology [place] [address] Markel Borjas MD [facility] DR HEMATOLOGY [place] [address] 03/01/2025 4:15 PM EDT Office Visit Dermatology at [place] [address] [facility] [place] [address] Marek Bonilla MD [address], [place] [address] documented as of this encounter Visit Diagnoses Not on filedocumented in this encounter Care Teams Automobile Leasing Supervisor Relationship Specialty Start Date End Date Deborah Quiroga, WIRELESS CONSTRUCTION MANAGER PCP - General Family Medicine 03/24/16 02/04/23 documented as of this encounter
--- OUTSIDE RECORDS SUMMARY | 2024-04-25 16:19 | XMS_ITS | Encounter Summary ---
[place] [address] Care Team Providers Care Defensive Secondary Coach Name Role Phone Ashley Quirogan Cornelius ANURAG Primary Care Provider [phone] Reason for Visit * Reason Onset Date Comments Medication Management 09/14/2016 Encounter Details Date Type Department Care Team (Late st Contact Info) Description 09/14/2016 Telephone Hematology [place] [address] Alexandrea Greenwood, boilermaker's assistant Management Social History Tobacco Use Types Packs/Day [...] AM EDT Appointment Hematology [place] [address] 05/12/2024 10:00 AM EDT Office Visit Hematology [place] [address] Markel Borjas MD [facility] DR [place] [address] 03/01/2025 4:15 PM EDT Office Visit Dermatology at [place] [address] [facility] [place] [address] Marek Bonilla MD [address] [facility] [facility] [address], [place] [address] documented as of this encounter Visit Diagnoses Not on filedocumented in this encounter Care Teams Defensive Secondary Coach Relationship Specialty Start Date End Date Deborah Quiroga APRN PCP - General Family Medicine 03/24/16 02/04/23 documented as of this encounter
--- OUTSIDE RECORDS SUMMARY | 2024-04-25 16:19 | XMS_ITS | Encounter Summary ---
[place] [address] Care Team Providers Care Radiochemical Technician Name Role Phone Deborah Quiroga ANURAG Primary Care Provider [phone] Reason for Visit * Reason Onset Date Comments Medical Care Coordination 07/17/2016 Encounter Details Date Type Department Care Team ([facility] Contact Info) Description 07/17/2016 Telephone Hemat[place] [address] Alexandrea Greenwood RN Medical Care Coordination Social [...] 07/17/2016 12:07 PM EST Message received from administrative secretary: Injection/Infusion Referral Call placed to [phone]). Spoke w/ Pasquale. Services to be provided for pt are: Labs @ 10am ([facility]) & Neulasta @ 11am on 07/20/16, CBC only on 07/30/16 Pasquale confirmed they would provide services to pt and I left [facility] for pt to call for appt info. Pt demographics, office note, med list and orders faxed to [facility] documented in this encounter Plan of Treatment Upcoming Encounters Date Type Department Care Team (Late st Contact Info) Description 05/12/2024 9:00 AM EDT Appointment [place] [address] 05/12/2024 10:00 AM EDT Office Visit [place]emat[place] [address] Markel Borjas MD [facility] DR HEMATOLOGY [place] [address] 03/01/2025 4:15 PM EDT Office Visit Dermatology at [place] [address] [place] [address] Marek Bonilla MD [address], [place] [address] documented as of this encounter Visit Diagnoses Not on filedocumented in this encounter Care Teams Radiochemical Technician Relationship Specialty Start Date End Date Deborah Quiroga APRN PCP - General Family Medicine 03/24/16 02/04/23 documented as of this encounter
--- OUTSIDE RECORDS SUMMARY | 2024-04-25 16:19 | XMS_ITS | Encounter Summary ---
Author Organization [facility] [place] [address] Care Team Providers Care Fisher Swordfish Name Role Phone Deborah Quiroga APRN Primary Care Provider [phone] Encounter Details Date Type Department Care Team (Late st Contact Info) Description 08/18/2016 4:20 PM EST Clinical [place] [address] Social History Tobacco Use Types Packs/Day Years [...] AM EDT Appointment [place]ematology [place] [address] 05/12/2024 10:00 AM EDT Office Visit [place]ematology [place] [address] Markel Borjas MD [facility] DR HEMATOLOGY [place] [address] 03/01/2025 4:15 PM EDT Office Visit Dermatology at [place] [address] [facility] [place] [address] Marek Bonilla MD [address] [facility], [place] [address] documented as of this encounter Visit Diagnoses Not on filedocumented in this encounter Care Teams Fisher Swordfish Relationship Specialty Start Date End Date Deborah Quiroga APRN PCP - General Family Medicine 03/24/16 02/04/23 documented as of this encounter
--- OUTSIDE RECORDS SUMMARY | 2024-04-25 16:19 | XMS_ITS | Encounter Summary ---
[place] [address] Care Team Providers Care Rn Recovery Name Role Phone JunaidDeborah APRN Primary Care Provider [phone] Reason for Visit * Reason Onset Date Comments Labs Only 09/16/2016 Encounter Details Date Type Department Care Team (Late st Contact Info) Description 09/16/2016 Telephone Hematology [place] [address] Alexandrea Greenwood, RN Labs Only Social History [...] 09/16/2016 11:09 AM EST Message received from real estate legal secretary: Purnima is having her Neulasta done today at [facility]. ??She is wondering if we want to do a CBC prior to the injection? [phone] Borjas: CBC is fine RN spoke with Swapna at [facility] who confirms they can draw CBC on pt today, RN faxed CBC w/diff to [facility] lab at [phone] RN relayed to pt that CBC ordered had been faxed to [facility], pt will have CBC drawn today prior to neulasta injection. documented in this encounter Plan of Treatment Upcoming Encounters Date Type Department Care Team (Late st Contact Info) Description 05/12/2024 9:00 AM EDT Appointment [place] [address] 05/12/2024 10:00 AM EDT Office Visit [place]emat[place] [address] Markel Borjas MD [facility] [address] [place] [address] 03/01/2025 4:15 PM EDT Office Visit Dermatology at [place] [address] [place] [address] Marek Bonilla MD [address] [facility] [place] [address] documented as of this encounter [...] type documented in this encounter Care Teams Rn Recovery Relationship Specialty Start Date End Date Deborah Quiroga APRN PCP - General Family Medicine 03/24/16 02/04/23 documented as of this encounter
--- OUTSIDE RECORDS SUMMARY | 2024-04-25 16:19 | XMS_ITS | Encounter Summary ---
[place] [address] Care Team Providers Care Project Controller Name Role Phone Deborah Quiroga APRN Primary Care Provider [phone] Reason for Visit * Reason Onset Date Comments Pre Procedure Call 06/18/2016 Encounter Details Date Type Department Care Team (Late st Contact Info) Description 06/18/2016 Telephone Hematology [place] [address]1000 Alexandrea Greenwood RN Pre Procedure Call Social [...] AM EDT Appointment [place] [address] 05/12/2024 10:00 AM EDT Office Visit [place] [address] Markel Borjas MD [facility] [address] [place] [address] 03/01/2025 4:15 PM EDT Office Visit Dermatology at [place] [address] [facility] [place] [address] Marek Bonilla MD [address], [address] [place] [address] documented as of this encounter Visit Diagnoses Not on filedocumented in this encounter Care Teams Project Controller Relationship Specialty Start Date End Date Deborah Quiroga, BACK TENDER FOURDRINIER PCP - General Family Medicine 03/24/16 02/04/23 documented as of this encounter
--- OUTSIDE RECORDS SUMMARY | 2024-04-25 16:19 | XMS_ITS | Encounter Summary ---
Author Organization [facility] Address [facility] [place] [address] Care Team Providers Care Exhibit Carpenter Name Role Phone Ashley Quirogan Cornelius ANURAG Primary Care Provider [phone] Encounter Details Date Type Department Care Team (Late st Contact Info) Description 08/11/2016 Telephone Hematology [place] [address] Markel Borjas MD [facility] [address] HEMATOLOGY [place] [address] Social History Tobacco Use Types Packs/Day Years [...] AM EDT Appointment Hematology [place] [address] 05/12/2024 10:00 AM EDT Office Visit [place]ematology [place] [address] Markel Borjas MD [facility] [address] HEMATOLOGY [place] [address] 03/01/2025 4:15 PM EDT Office Visit Dermatology at [place] [address] [facility] [place] [address] Marek Bonilla MD [address] [facility] [address] [address], [place] [address] documented as of this encounter Visit Diagnoses Not on filedocumented in this encounter Care Teams Exhibit Carpenter Relationship Specialty Start Date End Date Deborah Quiroga APRN PCP - General Family Medicine 03/24/16 02/04/23 documented as of this encounter
--- OUTSIDE RECORDS SUMMARY | 2024-04-25 16:20 | XMS_ITS | Encounter Summary ---
Author Organization [facility] Address [facility] [place] [address] Care Team Providers Care Director Cardiac Name Role Phone EitanMagnusDanni ANURAG Primary Care Provider [phone] Encounter Details Date Type Department Care Team (Latest Contact Info) Description 01/23/2014 7:45 AM EDT - 01/23/2014 5:50 PM EDT Hospital Encounter [place] [address] Alan Jacobson MD [facility] [place] [address] Cardiomyopathy; SOB (shortness of breath) Discharge Disposition: [...] by your doctor, do not take any xhld-ksr-[id number] medicines or herbal preparations without first discussing this with your doctor or pharmacist. There is the possibility of side effect and interactions when these are combined. Follow up Care Who to Call with Questions or Problems If there are any questions or problems that you think might be related to your cardiac cath or angioplasty, contact the correctional case manager rehabilitation worker by calling [facility] at . documented in this encounter Medications [...] AM EDT Appointment Hematology [place] [address] 05/12/2024 10:00 AM EDT Office Visit Hematology [place] [address] Markel Borjas MD [facility] DR HEMATOLOG[place] [address] 03/01/2025 4:15 PM EDT Office Visit Dermatology at [place] [address] [facility] [place] [address] Marek Bonilla MD [address], [place] [address] documented as of this encounter Procedures Procedure Name Priority Date/Time Associated Diagnosis Comments ECHOCARDIOGRAM TRANSTHORACIC Routine 01/23/2014 3:17 PM EDT SOB (shortness of breath) documented in this encounter Results * Echocardiogram Transthoracic(Leb) (01/23/2014 3:17 PM EDT) [facility] EF 50 HEARTLAB SYSTEM Anatomical Region Laterality Modality Other 01/23/2014 Narrative 01/23/2014 4:35 PM EDT Procedure: ? Transthoracic Echocardiogram Patient: ? ANDREW ONESIMO M ?(Age): 1955(58) Med Rec#: ?[id number] ? Sex: ?F ? Site Loc: ?[facility] ? Ht / Wt: ??158(cm)/93(kg) Pt. Loc: ? Adult Floor ?BSA: ?2.02 Study Date: ?01/23/2014 ? Pt. Type: Inpatient Tape: ? Referring: Lee Kincaid ([id number]) Referring: ANNALISA Job Order Clerk: Miguel Beverly Diagnosis:CPT Code(s): ??Echo Full (56936), ??Spectral Doppler (70714), Color Doppler (09978), Indication(s): ??Aortic stenosis Rhythm: Sinus HR ?BP [...] ? Mid-Inferior ?Hypokinetic ? Mid-Inferoseptal ?Hypokinetic ? [place]-Septal ? Hypokinetic ? [place]-Anterior ? Hypokinetic ? [place]-Lateral ?Hypokinetic ? [place]-Inferior ? Hypokinetic ? [place]-Tip ?Hypokinetic ? Chambers ?Value ?Units (Range) ? [...] 16:34:37 Images reviewed and interpretation verified [facility] Cardiac Ultrasound Laboratory Procedure Note Lee Kincaid MD - 01/23/2014 Procedure: Transthoracic Echocardiogram Patient: ANDREW Mejias (Age): 1955(58) Med Rec#: [id number] Sex: F Site Loc: [facility] Ht / Wt: 158(cm)/93(kg) Pt. Loc: Adult Floor BSA: 2.02 Study Date: 01/23/2014 Pt. Type: Inpatient Tape: Referring: Lee Kincaid ([id number]) Referring: ANNALISA Job Order Clerk: Miguel Beverly Diagnosis:CPT Code(s): Echo Full (48351), Spectral Doppler (13426), Color Doppler (22978), Indication(s): Aortic stenosis Rhythm: Sinus HR BP [...] Hypokinetic Mid-Posterolateral Hypokinetic Mid-Inferior Hypokinetic Mid-Inferoseptal Hypokinetic [place]-Septal Hypokinetic [place]-Anterior Hypokinetic [place]-Lateral Hypokinetic [place]-Inferior Hypokinetic [place]-Tip Hypokinetic Chambers Value Units (Range) IVSd 2D [...] 16:34:37 Images reviewed and interpretation verified [facility] Cardiac Ultrasound Laboratory Lee Kincaid MD [...] RN) documented in this encounter Care Teams Director Cardiac Relationship Specialty Start Date End Date Danni Laird APRN [address] [place] [address] PCP - General 01/23/14 11/11/14 documented as of this encounter
--- OUTSIDE RECORDS SUMMARY | 2024-04-25 16:20 | XMS_ITS | Encounter Summary ---
Author Organization [facility] [place] [address] Care Team Providers Care Fireproof Door Assembler Name Role Phone EitanDanni ANURAG Primary Care Provider [phone] Encounter Details Date Type Department Care Team (Late st Contact Info) Description 01/22/2014 Telephone Cardiology at [address] [phone] Cynthia Arrington LPN Social History Tobacco Use [...] LPN - 01/23/2014 2:39 PM EDT This process description writer did not receive a call back [...] EDT Appointment Hematology [place] [address] 05/12/2024 10:00 AM EDT Office Visit Hematology [place] [address] Markel Borjas MD [facility] [place] [address] 03/01/2025 4:15 PM EDT Office Visit Dermatology at [place] [address] [place] [address] Marek Bonilla MD [address] [facility] [place] [address] documented as of this encounter Visit Diagnoses Not on filedocumented in this encounter Care Teams Fireproof Door Assembler Relationship Specialty Start Date End Date Danni Laird APRN [address] [place] [address] PCP - General 01/23/14 11/11/14 documented as of this encounter
--- OUTSIDE RECORDS SUMMARY | 2024-04-25 16:20 | XMS_ITS | Encounter Summary ---
Author Organization [facility] [place] [address] Care Team Providers Care Sub Prior Name Role Phone Eitan Danni ANURAG Primary Care Provider [phone] Encounter Details Date Type Department Care Team (Late st Contact Info) Description 01/23/2014 9:25 AM EDT - 01/23/2014 10:25 AM EDT [place] [address] Alan Jacobson MD [facility] [place] [address] CARDIAC CATHETERIZATION Social History Tobacco Use Types [...] by your doctor, do not take any qfpw-fet-[id number] medicines or herbal preparations without first discussing this with your doctor or pharmacist. There is the possibility of side effect and interactions when these are combined. Follow up Care Who to Call with Questions or Problems If there are any questions or problems that you think might be related to your cardiac cath or angioplasty, contact the state manager nutrition counselor by calling [facility] at . documented in this encounter Medications [...] AM EDT Appointment Hematology [place] [address] 05/12/2024 10:00 AM EDT Office Visit Hematology [place] [address] Markel Borjas MD [facility] [place] [address] 03/01/2025 4:15 PM EDT Office Visit Dermatology at [place] [address] [place] [address] Marek Bonilla MD [address], [place] [address] documented as of this encounter Procedures Procedure Name Priority Date/Time Associated Diagnosis Comments ECHOCARDIOGRAM TRANSTHORACIC Routine 01/23/2014 3:17 PM EDT SOB (shortness of breath) documented in this encounter Results * Echocardiogram Transthoracic(Leb) (01/23/2014 3:17 PM EDT) [facility] EF 50 [employer] Anatomical Region Laterality Modality Other 01/23/2014 Narrative 01/23/2014 4:35 PM EDT Procedure: ? Transthoracic Echocardiogram Patient: ? ANDREW ONESIMO M ?(Age): 1955(58) Med Rec#: ?[id number] ? Sex: ?F ? Site Loc: ?[facility] ? Ht / Wt: ??158(cm)/93(kg) Pt. Loc: ? Adult Floor ?BSA: ?2.02 Study Date: ?01/23/2014 ? Pt. Type: Inpatient Tape: ? Referring: Lee Kincaid ([id number]) Referring: ANNALISA Java Tech Lead: Miguel Beverly Diagnosis:CPT Code(s): ??Echo Full (08042), ??Spectral Doppler (13942), Color Doppler (58525), Indication(s): ??Aortic stenosis Rhythm: Sinus HR ?BP [...] ? Mid-Inferior ?Hypokinetic ? Mid-Inferoseptal ?Hypokinetic ? [place]-Septal ? Hypokinetic ? [place]-Anterior ? Hypokinetic ? [place]-Lateral ?Hypokinetic ? [place]-Inferior ? Hypokinetic ? [place]-Tip ?Hypokinetic ? Chambers ?Value ?Units (Range) ? [...] Images reviewed and interpretation verified [facility] Card[facility] Procedure Note Lee Kincaid MD - 01/23/2014 Procedure: Transthoracic Echocardiogram Patient: ANDREW Mejias (Age): 1955(58) Med Rec#: [id number] Sex: F Site Loc: [facility] Ht / Wt: 158(cm)/93(kg) Pt. Loc: Adult Floor BSA: 2.02 Study Date: 01/23/2014 Pt. Type: Inpatient Tape: Referring: Lee Kincaid ([id number]) Referring: ANNALISA Java Tech Lead: Miguel Beverly Diagnosis:CPT Code(s): Echo Full (71377), Spectral Doppler (21577), Color Doppler (75200), Indication(s): Aortic stenosis Rhythm: Sinus HR BP [...] Hypokinetic Mid-Posterolateral Hypokinetic Mid-Inferior Hypokinetic Mid-Inferoseptal Hypokinetic [place]-Septal Hypokinetic [place]-Anterior Hypokinetic [place]-Lateral Hypokinetic [place]-Inferior Hypokinetic [place]-Tip Hypokinetic Chambers Value Units (Range) IVSd 2D [...] Images reviewed and interpretation verified [facility] Cardiac [facility] Lee Kincaid MD ECHO [...] RN) documented in this encounter Care Teams Sub Prior Relationship Specialty Start Date End Date Danni Laird APRN [address] [place] [address] PCP - General 01/23/14 11/11/14 documented as of this encounter
--- OUTSIDE RECORDS SUMMARY | 2024-04-25 16:20 | XMS_ITS | Encounter Summary ---
Author Organization [facility] [place] [address] Care Team Providers Care Crystal Grower Name Role Phone Deborah Quiroga ANURAG Primary Care Provider [phone] Encounter Details Date Type Department Care Team (Late st Contact Info) Description 06/09/2016 Orders Only Hematology [place] [phone] Nitesh Pina Jr., MD [facility] [address] [place] [address] Cyclical neutropenia Social History Tobacco Use Types [...] AM EDT Appointment Hematology [place] [phone] 05/12/2024 10:00 AM EDT Office Visit Hematology [place] [address] Markel Borjas MD [facility] [address] [place] [address] 03/01/2025 4:15 PM EDT Office Visit Dermatology at [place] [address] [place] [phone] Marek Bonilla MD [address], [place] [address] documented as of this encounter Results * Immunophenotyping Flow Cytometry (06/09/2016 4:53 PM EST) Immunophenotyping Flow See Comment [facility] Comment: When completed by the Pathologist, the Flow Cytometry Report ([id number]) will display under the Pathology Results section within eDH. Specimen of unknown material (specimen) 06/09/2016 4:53 PM EST 06/09/2016 5:00 PM EST Narrative Resulting Agency Comment Spec In Lab Nitesh Pina Jr., MD HEMATOLOGY ORDERABLE S Performing Organization Address City/State/[facility] Co de Phone Number [facility] [place] [address] documented in this encounter Visit Diagnoses Diagnosis Cyclical neutropenia Cyclic neutropenia documented in this encounter Care Teams Crystal Grower Relationship Specialty Start Date End Date Deborah Quiroga, ANURAG PCP - General Family Medicine 03/24/16 02/04/23 documented as of this encounter
--- OUTSIDE RECORDS SUMMARY | 2024-04-25 16:20 | XMS_ITS | Encounter Summary ---
Author Organization [facility] [place] [address] Care Team Providers Care Office Assistant Name Role Phone Junaid Deborah Shields APRN Primary Care Provider [phone] Encounter Details Date Type Department Care Team (Latest Contact Info) Description 05/19/2016 11:00 AM EDT Clinical [place] [phone] Nonrheumatic aortic valve stenosis Social History Tobacco [...] EDT Appointment Hematology [place] [address] 05/12/2024 10:00 AM EDT Office Visit Hematology [place] [address] Markel Borjas MD [address] [address] [place] [address] 03/01/2025 4:15 PM EDT Office Visit Dermatology at [place] [address] [place] [phone] Marek Bonilla MD [address], [place] [address] documented as of this encounter Procedures Procedure [...] (Bezet) 448 ms MUSE SYSTEM Calculated P [place] 37 degrees MUSE SYSTEM Calculated R [place] 31 degrees MUSE SYSTEM Calculated T [place] 25 degrees MUSE SYSTEM INTERPRETATION Normal sinus rhythm Normal ECG No previous ECGs available Confirmed by MD Becca, Deangelo ([id number]) on 05/19/2016 5:23:33 PM MUSE SYSTEM 05/19/2016 11:4 3 AM EDT 05/19/2016 5:23 PM EDT Alirio Esparza MD ECG ORDERABLES [employer] documented in this encounter Visit Diagnoses Diagnosis Nonrheumatic aortic valve stenosis Aortic valve disorders documented in this encounter Care Teams Office Assistant Relationship Specialty Start Date End Date Deborah Quiroga, SENIOR MECHANICAL DESIGN ENGINEER PCP - General Family Medicine 03/24/16 02/04/23 documented as of this encounter
--- OUTSIDE RECORDS SUMMARY | 2024-04-25 16:20 | XMS_ITS | Encounter Summary ---
Author Organization [facility] Address [facility] [place] [address] Care Team Providers Care Scagliola Mechanic Name Role Phone JunaidAshley hargrovezac Shields APRN Primary Care Provider [phone] Reason for Visit * Auth/Cert Specialty Diagnoses / Procedures Referred By Crispin t Referred To Contact Diagnoses AVS Procedures CARDIAC CATHETERIZATION Referral ID Status Reason Start Date Expiration Date Visits Re quested Visits Authorized [id number] 1 1 Encounter Details Date Type Department Care Team (Late st Contact Info) Description 06/03/2016 6:32 AM EDT - 06/03/2016 1:10 PM EDT Hospital Encounter [place] [phone] Anjum Oliveros II, MD [facility] [place] [address] Mario Alberto Escobedo MD [facility] [place] [address] Aortic valve stenosis, unspecified etiology; Nonrheumatic aortic [...] by your doctor, do not take any yuoa-xsh-[id number] medicinesor herbal preparations without first discussing this with your doctor or pharmacist. There is the possibility of side effects and interactions when these are combined. Follow Up Care Who to call with questions or problems If there are any questions or problems that you think might be related to your cardiac cath or angioplasty, contact the assistant professor of biochemistry inventory control/shipping receiving by calling [facility] at . * Patient Instructions* Felicia Corrigan - 06/03/2016 9:33 AM EDT Cardiology Instructions Call your doctor if: Chest pain, dyspnea, pain or swelling in legs occurs. If you have non-emergent questions between now and the time of your follow up appointments: -During 8am-5pm Wednesday through Wednesday call [phone] to speak with a nurse in the cardiology clinic -All other times call [phone] and ask to speak to the ventilation mechanic inventory control/shipping receiving. MEDICATIONS - restart your spironolactone, discontinue prior [...] Appointments: Primary care provider: Cardiology: Deborah Hahn, PNEUMATIC DEICER INSPECTOR [phone] Follow up as planned or as needed. Dr. Esparza [phone] Other follow-up appointment: Hematology - Dr. Mario [...] be made for her to see Dr. iPna; labs to be drawn today to start [...] AM EDT Appointment Hematology [place] [address] 05/12/2024 10:00 AM EDT Office Visit Hematology [place] [address] Markel Borjas MD [facility] [address] [place]EMAT[place] [address] 03/01/2025 4:15 PM EDT Office Visit Dermatology at [place] [address] [place] [address] Marek Bonilla MD [address] [place] [address] documented as of this encounter Procedures Procedure [...] AM EDT) Green Hold Sample in lab. [facility] Blood specimen (specimen) Venous Draw / Unknown 06/03/2016 11:45 AM EDT 06/03/2016 12:12 PM EDT Mario Alberto Escobedo MD CHEMISTRY ORDERABLES [facility] [place] [address] * Methylmalonic acid, serum (06/03/2016 11:45 AM EDT) Methylmalonic Acid (NOVEMBER) 0.21 <=0.40 nmol/mL [facility] Comment: Test Performed by: [address] [address] Comb Winder: Raymond Chaudhry II, M.D., Ph.D. Blood specimen (specimen) 06/03/2016 11:45 AM EDT 06/03/2016 1:57 PM EDT Narrative Resulting Agency Comment Spec In Lab Mario Alberto Escobedo MD LAB SEND OUT ORDERAB LES Performing Organization Address [facility] Co de Phone Number [facility] [place] [address] * Granulocyte Antibody (06/03/2016 11:45 AM EDT) Granulocyte Ab (NOVEMBER) Negative Not Applicable [facility] Comment: ADDITIONAL INFORMATION Method: Immunofluorescent Assay Performing Laboratory CLIA# [id number] This test was developed and its performance characteristics determined by [facility] in a manner consistent with CLIA requirements. This test has not been cleared or approved by the U.S. Food and Drug Administration. Test Performed by: [place] [address] Comb Winder: Raymond Chaudhry II, M.D., Ph.D. Blood specimen (specimen) 06/03/2016 11:45 AM EDT 06/03/2016 1:57 PM EDT Narrative Resulting Agency Comment Spec In Lab Mario Alberto Escobedo MD LAB SEND OUT ORDERAB LES Performing Organization Address [facility] Co de Phone Number [facility] [place] [address] * TSH (06/03/2016 11:45 AM EDT) Thyroid Stimulating Hormone 2.18 0.27 - 4.20 mcIU/mL [facility] Blood specimen (specimen) 06/03/2016 11:45 AM EDT 06/03/2016 12:11 PM EDT Narrative Resulting Agency Comment Spec In Lab Mario Alberto Escobedo MD CHEMISTRY ORDERABLES Performing Organization Address [facility]/ZIP Co de Phone Number [facility] [place] [address] * Homocysteine Total, Plasma (06/03/2016 11:45 AM EDT) Homocystine 9 <=15 mcmol/L [facility] Blood specimen (specimen) 06/03/2016 11:45 AM EDT 06/03/2016 12:11 PM EDT Narrative Resulting Agency Comment Spec In Lab Mario Alberto Escobedo MD CHEMISTRY ORDERABLES Performing Organization Address City/[facility]/ZIP Co de Phone Number [facility] [place] [address] * Folate, serum (06/03/2016 11:45 AM EDT) Folate >20.0 4.8 - 24.2 ng/mL [facility] Blood specimen (specimen) 06/03/2016 11:45 AM EDT 06/03/2016 12:04 PM EDT Narrative Resulting Agency Comment Spec In Lab Mario Alberto Escobedo MD CHEMISTRY ORDERABLES Performing Organization Address City/[facility]/ZIP Co de Phone Number [facility] [place] [address] * (ABNORMAL) Sedimentation rate (06/03/2016 11:45 AM EDT) Sedimentation Rate Automated 41(H) 0 - 20 mm/hr [facility] Blood specimen (specimen) 06/03/2016 11:45 AM EDT 06/03/2016 12:04 PM EDT Narrative Resulting Agency Comment Spec In Lab Mario Alberto Escobedo MD HEMATOLOGY ORDERABLE S Performing Organization Address City/[facility]/ZIP Co de Phone Number [facility] [place] [address] * Lactate Dehydrogenase (06/03/2016 11:45 AM EDT) Lactate Dehydrogenase 164 110 - 220 unit/L [facility] Blood specimen (specimen) 06/03/2016 11:45 AM EDT 06/03/2016 12:11 PM EDT Narrative Resulting Agency Comment Spec In Lab Mario Alberto Escobedo MD CHEMISTRY ORDERABLES [facility] [place] [address] * Comprehensive metabolic panel (non-fasting) (06/03/2016 11:45 AM EDT) Glucose 90 65 - 199 mg/dL [facility] Comment:Diabetes: >=200 mg/d L plus symptoms Blood Urea Nitrogen 11 8 - 18 mg/dL [facility] Creatinine 0.83 0.70 - 1.20 mg/dL [facility] Comment: Please note that the pediatric reference intervals supplied above were not validated at [facility]. Results from pediatric patients should be interpreted in conjunction to the patient's age, height and muscle mass. Sodium 143 135 - 145 mmol/L [facility] Potassium 4.0 3.5 - 5.0 mmol/L [facility] Comment: Please note: ??Patients with WBC >100,000 may have falsely elevated Potassium levels. ??For accurate Potassium quantification in these patients send serum separator tube (gold top) for subsequent determinations. ??Contact the Clinical Chemistry Laboratory if there are any questions. Chloride 104 98 - 107 mmol/L [facility] Carbon Dioxide 25 22 - 31 mmol/L [facility] Anion Gap 14 5 - 15 mmol/L [facility] Calcium 9.2 8.5 - 10.5 mg/dL [facility] Protein, Total 7.0 6.1 - 8.0 gm/dL [facility] Albumin 4.0 3.2 - 5.2 gm/dL [facility] Aspartate Aminotransferase 17 0 - 30 unit/L [facility] Alanine Aminotransferase 9 0 - 30 unit/L [facility] Alkaline Phosphatase 81 40 - 104 unit/L [facility] Bilirubin, Total 0.4 0.2 - 1.3 mg/dL [facility] Bilirubin, Direct 0.1 0.0 - 0.3 mg/dL [facility] Est [...] the following links into your internet browser. [email or web address] Blood specimen (specimen) 06/03/2016 11:45 AM EDT 06/03/2016 12:11 PM EDT Narrative Resulting Agency Comment Spec In Lab Mario Alberto Escobedo MD CHEMISTRY ORDERABLES Performing Organization Address City/State/[facility] Co de Phone Number [facility] [place] [phone] documented in this encounter Visit Diagnoses Diagnosis [...] Hernandez) documented in this encounter Care Teams Scagliola Mechanic Relationship Specialty Start Date End Date Deborah Quiroga, PNEUMATIC DEICER INSPECTOR PCP - General Family Medicine 03/24/16 02/04/23 documented as of this encounter
--- OUTSIDE RECORDS SUMMARY | 2024-04-25 16:20 | XMS_ITS | Encounter Summary ---
Author Organization [facility] Address [facility] [place] [address] Care Team Providers Care Tip Banding Machine Operator Name Role Phone Junaid, Deborah Shields APRN Primary Care Provider [phone] Reason for Visit * Auth/Cert Specialty Diagnoses / Procedures Referred By Crispin t Referred To Contact Diagnoses AVS Procedures CARDIAC CATHETERIZATION Referral ID Status Reason Start Date Expiration Date Visits Re quested Visits Authorized [id number] 1 1 Encounter Details Date Type Department Care Team (Late st Contact Info) Description 06/03/2016 7:30 AM EDT - 06/03/2016 8:30 AM EDT Surgery Job Developer [place] [phone] Mario Alberto Escobedo MD [facility] [place] [address] CARDIAC CATHETERIZATION Social History Tobacco Use Types [...] by your doctor, do not take any tuqx-mjl-nqharvz medicinesor herbal preparations without first discussing this with your doctor or pharmacist. There is the possibility of side effects and interactions when these are combined. Follow Up Care Who to call with questions or problems If there are any questions or problems that you think might be related to your cardiac cath or angioplasty, contact the site engineer production planning supervisor by calling [facility] at . * Patient Instructions* Felicia Corrigan - 06/03/2016 9:33 AM EDT Cardiology Instructions Call your doctor if: Chest pain, dyspnea, pain or swelling in legs occurs. If you have non-emergent questions between now and the time of your follow up appointments: -During 8am-5pm Wednesday through Wednesday call [phone] to speak with a nurse in the cardiology clinic -All other times call [phone] and ask to speak to the photonics engineering technologist production planning supervisor. MEDICATIONS - restart your spironolactone, discontinue [...] Appointments: Primary care provider: Cardiology: Deborah Hahn, METALLURGICAL TECHNICIAN [phone] Follow up as planned or as needed. Dr. Esparza [phone] Other follow-up appointment: Hematology - Dr. Mario [...] AM EDT Appointment Hematology [place] [address] 05/12/2024 10:00 AM EDT Office Visit Hematology [place] [address] Markel Borjas MD [facility] [address] [place] [address] 03/01/2025 4:15 PM EDT Office Visit Dermatology at [place] [address] [place] [phone] Marek Bonilla MD [address] [place] [address] documented as of this encounter Procedures Procedure [...] AM EDT) Green Hold Sample in lab. [facility] Blood specimen (specimen) Venous Draw / Unknown 06/03/2016 11:45 AM EDT 06/03/2016 12:12 PM EDT Mario Alberto Escobedo MD CHEMISTRY ORDERABLES Performing Organization Address City/[facility]/ZIP Co de Phone Number [facility] [place] [address] * Methylmalonic acid, serum (06/03/2016 11:45 AM EDT) Methylmalonic Acid (NOVEMBER) 0.21 <=0.40 nmol/mL [facility] Comment: Test Performed by: [address] [address] Boat Canvas Maker Installer: Raymond Chaudhry II, M.D., Ph.D. Blood specimen (specimen) 06/03/2016 11:45 AM EDT 06/03/2016 1:57 PM EDT Narrative Resulting Agency Comment Spec In Lab Mario Alberto Escobedo MD LAB SEND OUT ORDERAB LES Performing Organization Address City/[facility]/ZIP Co de Phone Number [facility] [place] [address] * Granulocyte Antibody (06/03/2016 11:45 AM EDT) Pathologist [facility] Granulocyte Ab (NOVEMBER) Negative Not Applicable [facility] Comment: ADDITIONAL INFORMATION Method: Immunofluorescent Assay Performing Laboratory CLIA# [id number] This test was developed and its performance characteristics determined by [facility] in a manner consistent with CLIA requirements. This test has not been cleared or approved by the U.S. Food and Drug Administration. Test Performed by: [place] [address] Boat Canvas Maker Installer: Raymond Chaudhry II, M.D., Ph.D. Blood specimen (specimen) 06/03/2016 11:45 AM EDT 06/03/2016 1:57 PM EDT Narrative Resulting Agency Comment Spec In Lab Mario Alberto Escobedo MD LAB SEND OUT ORDERAB LES [facility] [place] [address] * TSH (06/03/2016 11:45 AM EDT) Pathologist [facility] Thyroid Stimulating Hormone 2.18 0.27 - 4.20 mcIU/mL [facility] Blood specimen (specimen) 06/03/2016 11:45 AM EDT 06/03/2016 12:11 PM EDT Narrative Resulting Agency Comment Spec In Lab Mario Alberto Escobedo MD CHEMISTRY ORDERABLES Performing Organization Address City/[facility]/ZIP Co de Phone Number [facility] [place] [address] * Homocysteine Total, Plasma (06/03/2016 11:45 AM EDT) Homocystine 9 <=15 mcmol/L [facility] Blood specimen (specimen) 06/03/2016 11:45 AM EDT 06/03/2016 12:11 PM EDT Narrative Resulting Agency Comment Spec In Lab Mario Alberto Escobedo MD CHEMISTRY ORDERABLES Performing Organization Address City/[facility] Co de Phone Number [facility] [place] [address] * Folate, serum (06/03/2016 11:45 AM EDT) Folate >20.0 4.8 - 24.2 ng/mL [facility] Blood specimen (specimen) 06/03/2016 11:45 AM EDT 06/03/2016 12:04 PM EDT Narrative Resulting Agency Comment Spec In Lab Mario Alberto Escobedo MD CHEMISTRY ORDERABLES Performing Organization Address [facility] Co de Phone Number [facility] [place] [address] * (ABNORMAL) Sedimentation rate (06/03/2016 11:45 AM EDT) Sedimentation Rate Automated 41(H) 0 - 20 mm/hr [facility] Blood specimen (specimen) 06/03/2016 11:45 AM EDT 06/03/2016 12:04 PM EDT Narrative Resulting Agency Comment Spec In Lab Mario Alberto Escobedo MD HEMATOLOGY ORDERABLE S Performing Organization Address City/[facility] Co de Phone Number [facility] [place] [address] * Lactate Dehydrogenase (06/03/2016 11:45 AM EDT) Lactate Dehydrogenase 164 110 - 220 unit/L [facility] Blood specimen (specimen) 06/03/2016 11:45 AM EDT 06/03/2016 12:11 PM EDT Narrative Resulting Agency Comment Spec In Lab Mario Alberto Escobedo MD CHEMISTRY ORDERABLES Performing Organization Address City/[facility]/ZIP Co de Phone Number [facility] [place] [address] * Comprehensive metabolic panel (non-fasting) (06/03/2016 11:45 AM EDT) Glucose 90 65 - 199 mg/dL [facility] Comment:Diabetes: >=200 mg/d L plus symptoms Blood Urea Nitrogen 11 8 - 18 mg/dL [facility] Creatinine 0.83 0.70 - 1.20 mg/dL [facility] Comment: Please note that the pediatric reference intervals supplied above were not validated at [facility]. Results from pediatric patients should be interpreted in conjunction to the patient's age, height and muscle mass. Sodium 143 135 - 145 mmol/L [facility] Potassium 4.0 3.5 - 5.0 mmol/L [facility] Comment: Please note: ??Patients with WBC >100,000 may have falsely elevated Potassium levels. ??For accurate Potassium quantification in these patients send serum separator tube (gold top) for subsequent determinations. ??Contact the Clinical Chemistry Laboratory if there are any questions. Chloride 104 98 - 107 mmol/L [facility] Carbon Dioxide 25 22 - 31 mmol/L [facility] Anion Gap 14 5 - 15 mmol/L [facility] Calcium 9.2 8.5 - 10.5 mg/dL [facility] Protein, Total 7.0 6.1 - 8.0 gm/dL [facility] Albumin 4.0 3.2 - 5.2 gm/dL [facility] Aspartate Aminotransferase 17 0 - 30 unit/L [facility] Alanine Aminotransferase 9 0 - 30 unit/L [facility] Alkaline Phosphatase 81 40 - 104 unit/L [facility] Bilirubin, Total 0.4 0.2 - 1.3 mg/dL [facility] Bilirubin, Direct 0.1 0.0 - 0.3 mg/dL [facility] Est Glomerular Filtration [...] the following links into your internet browser. [email or web address] Blood specimen (specimen) 06/03/2016 11:45 AM EDT 06/03/2016 12:11 PM EDT Narrative Resulting Agency Comment Spec In Lab Mario Alberto Escobedo MD CHEMISTRY ORDERABLES [facility] [place] [address] documented in this encounter Visit Diagnoses Diagnosis [...] Hernandez) documented in this encounter Care Teams Tip Banding Machine Operator Relationship Specialty Start Date End Date Deborah Quiroga APRN PCP - General Family Medicine 03/24/16 02/04/23 documented as of this encounter
--- OUTSIDE RECORDS SUMMARY | 2024-04-25 16:20 | XMS_ITS | Encounter Summary ---
Author Organization [facility] Address [facility] [place] [address] Care Team Providers Care Construction Site Crossing Guard Name Role Phone Deborah Quiroga APRN Primary Care Provider [phone] Encounter Details Date Type Department Care Team (Latest Contact Info) Description 05/19/2016 11:52 AM EDT - 05/19/2016 11:59 PM EDT Hospital Encounter XRay at [address] [place] [address] Alirio Esparza MD Nonrheumatic aortic valve stenosis [...] AM EDT Appointment [place]ology [place] [address] 05/12/2024 10:00 AM EDT Office Visit [place]ematology [place] [address] Markel Borjas MD [facility] [address] [place] [address] 03/01/2025 4:15 PM EDT Office Visit Dermatology at [place] [address] [place] [address] Marek Bonilla MD [address] [facility] [place] [address] documented as of this encounter Procedures Procedure [...] disorders documented in this encounter Care Teams Construction Site Crossing Guard Relationship Specialty Start Date End Date Deborah Quiroga, LICENSED HOME INSPECTOR PCP - General Family Medicine 03/24/16 02/04/23 documented as of this encounter
--- OUTSIDE RECORDS SUMMARY | 2024-04-25 16:20 | XMS_ITS | Encounter Summary ---
[place] [address] Care Team Providers Care General Neurologist Name Role Phone Mitchell Wilkes MD Primary Care Provider [phone] Reason for Visit * Reason Onset Date Comments Other 01/18/2014 Encounter Details Date Type Department Care Team (Late st Contact Info) Description 01/18/2014 Telephone Cardiology at [address] [address] Jesusita Garces Other Social History [...] AM EDT Appointment Hematology [place] [address] 05/12/2024 10:00 AM EDT Office Visit Hematology [place] [address] Markel Borjas MD [facility] [address] HEMATOLOGY [place] [address] 03/01/2025 4:15 PM EDT Office Visit Dermatology at [place] [address] [place] [address] Marek Bonilla MD [address], [place] [address] documented as of this encounter Visit Diagnoses Not on filedocumented in this encounter Care Teams General Neurologist Relationship Specialty Start Date End Date Mitchell Wilkes MD [facility] PCP - General 06/24/10 01/19/14 documented as of this encounter
--- OUTSIDE RECORDS SUMMARY | 2024-04-25 16:20 | XMS_ITS | Encounter Summary ---
Author Organization [facility] Address [facility] [place] [address] Care Team Providers Care Lens Shaper Grinder Name Role Phone Ashley Quirogan Cornelius ANURAG Primary Care Provider [phone] Encounter Details Date Type Department Care Team (Latest Contact Info) Description 05/19/2016 11:20 AM EDT Laboratory [place] [address] Nonrheumatic aortic valve stenosis Social History Tobacco [...] EDT Appointment Hematology [place] [address] 05/12/2024 10:00 AM EDT Office Visit Hematology [place] [address] Markel Borjas MD [facility] [address] HEMATOLOGY AND [place]OGY [place], [place] [phone] 03/01/2025 4:15 PM EDT Office Visit Dermatology at [address] [address] Marek Bonilla MD [address] [place] [address] documented as of this encounter Procedures Procedure Name Priority Date/Time Associated Diagnosis Comments SCAN, PERIPHERAL BLOOD Routine 05/19/2016 11:32 AM EDT HEMOGRAM Routine 05/19/2016 11:32 AM EDT Nonrheumatic aortic valve stenosis DIFFERENTIAL, AUTOMATED Routine 05/19/2016 11:32 AM EDT Nonrheumatic aortic valve stenosis TYPE AND SCREEN, SDP (FUTURE SURGERY, [facility] [place] SAME DAY PROGRAM ONLY) Routine 05/19/2016 11:32 [...] (05/19/2016 11:32 AM EDT) Plat estimate Normal [facility] RBC Morphology Normal [facility] Blood specimen (specimen) 05/19/2016 11:32 AM EDT 05/19/2016 11:41 AM EDT Narrative Resulting Agency Comment Spec In Lab Alirio Esparza MD HEMATOLOGY ORDERABL ES [facility] [place] [address] * (ABNORMAL) Differential, Automated (05/19/2016 11:32 AM EDT) Pathologist Iron Neutrophil % 25.9 % [facility] Neutrophil Absolute 0.42(Crit ical) 1.70 - 6.10 x10(3)/[facility] Comment: This result has been called to DR ALIRIO ESPARZA by Alivia Ibarra on 05 19 2016 at 1228, and has been read back. Lymph % 59.9 % [facility] Lymphocytes Abs 1.0 0.9 - 3.2 x10(3)/[facility] Monocyte % 13.0 % [facility] Monocyte Abs 0.2(L) 0.3 - 0.9 x10(3)/[facility] Eos % 0.6 % [facility] Eosinophils Abs 0.0 0.0 - 0.4 x10(3)/[facility]OR[facility] Basophil % 0.6 % [facility] Baso Absolute 0.0 0.0 - 0.1 x10(3)/[facility] Immature Gran % 0.00 % [facility] [...] [facility] Blood specimen (specimen) 05/19/2016 11:32 AM EDT 05/19/2016 11:41 AM EDT Narrative Resulting Agency Comment Spec In Lab Alirio Esparza MD HEMATOLOGY ORDERABL ES [facility] [place] [address] * (ABNORMAL) Hemogram (05/19/2016 11:32 AM EDT) White Blood Cell 1.6(Criti gabrielle) 4.0 - 9.5 x10(3)/mc L [facility] Comment: This result has been called to DR ALIRIO ESPARZA by Alivia Ibarra on 05 19 2016 at 1228, and has been read back. Red Blood Cell 3.96(L) 4.00 - 5.21 x10(6)/mc L [facility] Hemoglobin 12.5 11.7 - 15.5 gm/dL [facility] Hematocrit 37.9 35.7 - 45.8 % [facility] Mean Cell Volume 95.7(H) 82.6 - 94.[address] [facility] Mean Cell Hemoglobin 31.6 27.1 - 32.[address] [facility] Mean Cell Hemoglobin Concentration 33.0 31.7 - 35.0 gm/dL [facility] Platelet 227 145 - 357 x10(3)/ L [facility] RDW Standard Deviation 40.5 37.0 - 46.0 [facility] RDW coefficient of variation 11.5 11.5 - 14.1 % [facility] Mean Platelet Volume 8.4 7.6 - 12.[address] [facility] NRBC% auto 0.0 % [facility] NRBC Absolute 0.000 0.000 - 0.000 x10(3)/ L [facility] Blood specimen (specimen) 05/19/2016 11:32 AM EDT 05/19/2016 11:41 AM EDT Narrative Resulting Agency Comment Spec In Lab Alirio Esparza MD HEMATOLOGY ORDERABL ES [facility] [place] [address] * Antibody screen (05/19/2016 11:32 AM EDT) Ab Screen Interp Negative [facility] Expires at 2676 on: 07/03/2016 [facility] Comment: Corrected from 06/11/16 12:00 [Unknown] on 06/09/16 05:51 by Bethanie Tomlinson I.. Corrected from 07/03/16 12:00 [Unknown] on 05/21/16 06:00 by Shelia Barrera Blood specimen (specimen) 05/19/2016 11:32 AM EDT 05/19/2016 11:35 AM EDT Narrative Resulting Agency Comment Spec In Lab Alirio Esparza MD BLOOD BANK LAB ORDCornelius ALEJO [facility] [place] [address] * ABO/Rh Typing (05/19/2016 11:32 AM EDT) Pathologist [facility] ABORH Type B Pos [facility] Blood specimen (specimen) 05/19/2016 11:32 AM EDT 05/19/2016 11:35 AM EDT Narrative Resulting Agency Comment Spec In Lab Alirio Esparza MD BLOOD BANK LAB BETH ALEJO [facility] [place] [address] * Basic Metabolic Panel (non-fasting) (05/19/2016 11:32 AM EDT) [facility] Glucose 86 65 - 199 mg/dL [facility] Comment:Diabetes: >=200 mg/d L plus symptoms Blood Urea Nitrogen 13 8 - 18 mg/dL [facility] Creatinine 0.95 0.70 - 1.20 mg/dL [facility] Comment: Please note that the pediatric reference intervals supplied above were not validated at [facility] [place]. Results from pediatric patients should be interpreted [...] LABORATORY Est Glomerular Filtration Rate 60 >=60 [facility] [...] the following links into your internet browser. [email or web address] Blood specimen (specimen) 05/19/2016 11:32 AM EDT 05/19/2016 11:41 AM EDT Narrative Resulting Agency Comment Spec In Lab Alirio Esparza MD CHEMISTRY ORDERABLE S [facility] [place] [address] documented in this encounter Visit Diagnoses Diagnosis Nonrheumatic aortic valve stenosis Aortic valve disorders documented in this encounter Care Teams Lens Shaper Grinder Relationship Specialty Start Date End Date Deborah Quiroga APRN PCP - General Family Medicine 03/24/16 02/04/23 documented as of this encounter
--- OUTSIDE RECORDS SUMMARY | 2024-04-25 16:20 | XMS_ITS | Encounter Summary ---
Author Organization [facility] [place] [address] Care Team Providers Care Bed Laborer Name Role Phone Deborah Quiroga ANURAG Primary Care Provider [phone] Encounter Details Date Type Department Care Team (Late st Contact Info) Description 05/22/2016 Orders Only Cardiology at [address] [phone] Chele Randolph PA [facility] DR CARDIOLOGY DEPT. [place], [place] [phone] Aortic valve stenosis, unspecified etiology Social History [...] AM EDT Appointment Hematology [place] [address] 05/12/2024 10:00 AM EDT Office Visit Hematology [place] [address] Markel Borjas MD [facility] [address] HEMATOLOGY AND ONCOLOGY [place], [place] [phone] 03/01/2025 4:15 PM EDT Office Visit Dermatology at [place] [address] [facility] [place] [address] Marek Bonilla MD [address] [facility] [place] [address] documented as of this encounter Procedures Procedure Name Priority Date/Time Associated Diagnosis Comments CARDIAC CATHETERIZATION Routine 06/03/20 16 9:13 AM EDT Aortic valve stenosis, unspecified etiology documented in this encounter Results * CARDIAC CATHETERIZATION (06/03/2016 9:13 AM EDT) Anatomical Region Laterality Modality Other Narrative 06/03/2016 10:13 AM EDT ?[facility] ? Cardiac Catheterization/Intervention Report ? Patient Name: Purnima Thacker. ? Procedure Date: 06/03/2016 ? A #: [id number] ? Primary Physician: Nitesh Escobedo ? Case #: [id number] ? File Name: [id number] ? Catheterization Order Number: [id number] ? [facility] ? Final Report [place], [place] ? Patient Name: ? Purnima M. Kirstie ? ID#: ?[id number] ? : ?1955 ? Procedure Date: ? [...] no symptom, no angina (w/i 14 days). [facility] ?Cardiovascular Society angina class was 0. This [...] ? Procedure Nitesh Marroquin, MD - 09/21/2016 [facility] Cardiac Catheterization/Intervention Report Patient Name: Purnima Thacker Procedure Date: 06/03/2016 A #: [id number] Primary Physician: Nitesh Escobedo Case #: [id number] File Name: [id number] Catheterization Order Number: [id number] [facility] FinalReport [place], [place] Patient Name: Purnima Thacker ID#:[id number] :1955 Procedure Date: June 03, 2016 Case [...] with: no symptom, no angina (w/i 14 days).[facility] Cardi[employer] Society angina class was 0. This [...] etiology documented in this encounter Care Teams Bed Laborer Relationship Specialty Start Date End Date Deborah Quiroga, CLAY MILLER PCP - General Family Medicine 03/24/16 02/04/23 documented as of this encounter
--- OUTSIDE RECORDS SUMMARY | 2024-04-25 16:20 | XMS_ITS | Encounter Summary ---
Author Organization [facility] [place] [address] Care Team Providers Care It Investment/Portfolio Manager Name Role Phone Junaid, Deborah Shields APRN Primary Care Provider [phone] Encounter Details Date Type Department Care Team (Late st Contact Info) Description 05/19/2016 10:00 AM EDT Office Visit [place] [phone] Alirio Esparza MD Nonrheumatic aortic valve stenosis [...] AM EDT Appointment Hematology [place] [address] 05/12/2024 10:00 AM EDT Office Visit Hematology [place] [address] Markel Borjas MD [facility] [address] [place] [address] 03/01/2025 4:15 PM EDT Office Visit Dermatology at [place] [address] [facility] [place] [phone] Marek Bonilla MD [address] [facility], [place] [address] documented as of this encounter Results * [...] (Bezet) 448 ms MUSE SYSTEM Calculated P Dunlap 37 degrees MUSE SYSTEM Calculated R [place] 31 degrees MUSE SYSTEM Calculated T Dun[place] 25 degrees MUSE SYSTEM INTERPRETATION Normal sinus rhythm Normal ECG No previous ECGs available Confirmed by MD Becca, Deangelo ([id number]) on 05/19/2016 5:23:33 PM MUSE SYSTEM 05/19/2016 11:4 3 AM EDT 05/19/2016 5:23 PM EDT Alirio Esparza MD ECG ORDERABLES MUSE SYSTEM * Basic Metabolic Panel (non-fasting) (05/19/2016 11:32 AM EDT) Glucose 86 65 - 199 mg/dL [facility] Comment:Diabetes: >=200 mg/d L plus symptoms Blood Urea Nitrogen 13 8 - 18 mg/dL [facility] [...] Chloride 101 98 - 107 mmol/L [facility] Carbon Dioxide 27 22 - 31 mmol/L [facility] [...] the following links into your internet browser. [email or web address] Blood specimen (specimen) 05/19/2016 11:32 AM EDT 05/19/2016 11:41 AM EDT Narrative Resulting Agency Comment Spec In Lab Alirio Esparza MD CHEMISTRY ORDERABLE S [facility] [place] [address] documented in this encounter Visit Diagnoses Diagnosis Nonrheumatic aortic valve stenosis Aortic valve disorders Nonrheumatic aortic valve stenosis Aortic valve disorders documented in this encounter Care Teams It Investment/Portfolio Manager Relationship Specialty Start Date End Date Deborah Quiroga, ACTUARIAL INTERN PCP - General Family Medicine 03/24/16 02/04/23 documented as of this encounter
--- OUTSIDE RECORDS SUMMARY | 2024-04-25 16:20 | XMS_ITS | Encounter Summary ---
[place] [address] Care Team Providers Care Manager Benefit Name Role Phone Ashley Quirogan Cornelius ANURAG Primary Care Provider [phone] Encounter Details Date Type Department Care Team (Late st Contact Info) Description 03/24/2016 Notes [place] [address] Alfa Lua Social History Tobacco Use Types [...] assessments completed: Wadsworth Score: 6/6 IADL: 7/7 Sourcing Manager Strength Trials: 18.4, 15.0, 16.8 (right hand dominant) 5 meter walk test in seconds x3: 4.98, 4.88, 4.45 KCCQol: 98% Alfa Lua documented in this encounter Plan of Treatment Upcoming Encounters Date Type Department Care Team (Late st Contact Info) Description 05/12/2024 9:00 AM EDT Appointment [place]ematology [place] [address] 05/12/2024 10:00 AM EDT Office Visit [place]ematology [place] [address] Markel Borjas MD [facility] [address] [place] [address] 03/01/2025 4:15 PM EDT Office Visit Dermatology at [place] [address] [facility] [place] [address] Marek Bonilla MD [address], [place] [address] documented as of this encounter Visit Diagnoses Not on filedocumented in this encounter Care Teams Manager Benefit Relationship Specialty Start Date End Date Deborah Quiroga APRN PCP - General Family Medicine 03/24/16 02/04/23 documented as of this encounter
--- OUTSIDE RECORDS SUMMARY | 2024-04-25 16:20 | XMS_ITS | Encounter Summary ---
Author Organization [facility] [place] [address] Care Team Providers Care Baling Machine Tender Name Role Phone Mitchell Wilkes MD Primary Care Provider [phone] Encounter Details Date Type Department Care Team (Late st Contact Info) Description 01/19/2014 Orders Only Cardiology at [address] [address] Chele Randolph PA [facility] [place] [address] Cardiomyopathy (Primary Dx) Social History Tobacco Use [...] AM EDT Appointment Hematology [place] [address] 05/12/2024 10:00 AM EDT Office Visit [place]emat[place] [address] Markel Borjas MD [facility] DR HEMATOLOG[place] [address] 03/01/2025 4:15 PM EDT Office Visit Dermatology at [place] [address] [place] [address] Marek Bonilla MD [address], [place] [address] documented as of this encounter Procedures Procedure [...] cardiomyopathies documented in this encounter Care Teams Baling Machine Tender Relationship Specialty Start Date End Date Mitchell Wilkes MD [facility] PCP - General 06/24/10 01/19/14 documented as of this encounter
--- OUTSIDE RECORDS SUMMARY | 2024-04-25 16:20 | XMS_ITS | Encounter Summary ---
[place] [address] Care Team Providers Care Presser Hand Name Role Phone Jerel Sofia Garcia APRN Primary Care Provider [phone] Encounter Details Date Type Department Care Team (Late st Contact Info) Description 11/12/2014 8:10 AM EDT - 11/12/2014 11:59 PM EDT Hospital [place] [phone] CLINIC, DR ABE Burrell, Antelmo Porter MD [address] [place] [address] Discharge Disposition: Home Social History Tobacco Use [...] AM EDT Appointment Hematology [place] [address] 05/12/2024 10:00 AM EDT Office Visit Hematology [place] [phone] Markel Borjas MD [facility] DR HEMATOLOGY [place] [address] 03/01/2025 4:15 PM EDT Office Visit Dermatology at [place] [address] [address] Marek Bonilla MD [address], [place] [address] documented as of this encounter Procedures Procedure [...] mLs documented in this encounter Care Teams Presser Hand Relationship Specialty Start Date End Date Sofia Beltrán APRN [address] [place] [address] PCP - General 11/12/14 03/23/16 documented as of this encounter
--- OUTSIDE RECORDS SUMMARY | 2024-04-25 16:20 | XMS_ITS | Encounter Summary ---
Author Organization [facility] Address [facility] [place] [address] Care Team Providers Care Axminster Weaver Name Role Phone JunaidAshley hargrovezac Shields APRN Primary Care Provider [phone] Reason for Visit * Consultation (Urgent) - Closed Specialty Diagnoses / Procedures Referred By Contac t Referred To Contact Cardiac Surgery Diagnoses aortic stenosis, consideration for valve replacement Antelmo Burrell MD [address] [place] [address] Alirio Esparza MD [facility] [address] CARDIOTHORACIC [place] [address] Referral ID Status Reason Start Date Expiration Date V isits Requested Visits Authorized [id number] Closed Connection Center 03/04/2016 03/04/2017 1 1 Encounter Details Date Type Department Care Team (Late st Contact Info) Description 03/24/2016 10:40 AM EDT Office [place] [address] Alirio Esparza MD Aortic valve stenosis, unspecified [...] This is a patient of Antelmo Burrell [facility] Cardiology. Mrs. Thacker is being sent [...] 30 minute visit, 20 minutes were spent [id number] with the patient discussing aortic stenosis and valve replacement. documented in this encounter Plan of Treatment Upcoming Encounters Date Type Department Care Team (Late st Contact Info) Description 05/12/2024 9:00 AM EDT Appointment [place] [address] 05/12/2024 10:00 AM EDT Office Visit [place]ematology [place] [address] Markel Borjas MD [facility] [address] HEMATOLOGY [place] [address] 03/01/2025 4:15 PM EDT Office Visit Dermatology at [place] [address] [facility] [place] [address] Marek Bonilla MD [address], [address] [place] [address] documented as of this encounter Visit Diagnoses Diagnosis Aortic valve stenosis, unspecified etiology documented in this encounter Care Teams Axminster Weaver Relationship Specialty Start Date End Date Deborah Quiroga APRN PCP - General Family Medicine 03/24/16 02/04/23 documented as of this encounter
--- OUTSIDE RECORDS SUMMARY | 2024-04-25 16:20 | XMS_ITS | Encounter Summary ---
Author Organization [facility] [place] [address] Care Team Providers Care Mortgage Processing Clerk Name Role Phone Danni Laird UTILITY MECHANIC SUPERVISOR Primary Care Provider [phone] Encounter Details Date Type Department Care Team (Late st Contact Info) Description 01/23/2014 Orders Only Cardiology at [address] [address] Lee Kincaid MD [facility] [address] CARDIOLOGY [place], [place] [id number] SOB (shortness of breath) (Primary Dx) Social [...] AM EDT Appointment [place] [address] 05/12/2024 10:00 AM EDT Office Visit [place] [address] Markel Borjas MD [facility] DR [place] [address] 03/01/2025 4:15 PM EDT Office Visit Dermatology at [place] [address] [facility] [place] [address] Marek Bonilla MD [address], [place] [address] documented as of this encounter Results * Echocardiogram Transthoracic(Leb) (01/23/2014 3:17 PM EDT) EF 50 HEARTLAB SYSTEM Anatomical Region Laterality Modality Other 01/23/2014 Narrative 01/23/2014 4:35 PM EDT Procedure: ? Transthoracic Echocardiogram Patient: ? ANDREW ECHOLS M ?(Age): 1955(58) Med Rec#: ?[id number] ? Sex: ?F ? Site Loc: ?[facility] ? Ht / Wt: ??158(cm)/93(kg) Pt. Loc: ? Adult Floor ?BSA: ?2.02 Study Date: ?01/23/2014 ? Pt. Type: Inpatient Tape: ? Referring: Lee Kincaid ([id number]) Referring: ANNALISA Customer Success Specialist: Miguel Beverly Diagnosis:CPT Code(s): ??Echo Full (26399), ??Spectral Doppler (43371), Color Doppler (19029), Indication(s): ??Aortic stenosis Rhythm: Sinus HR ?BP [...] ? Mid-Inferior ?Hypokinetic ? Mid-Inferoseptal ?Hypokinetic ? Buhl-Septal ? Hypokinetic ? Buhl-Anterior ? Hypokinetic ? Buhl-Lateral ?Hypokinetic ? Buhl-Inferior ? Hypokinetic ? Buhl-Tip ?Hypokinetic ? Chambers ?Value ?Units (Range) ? [...] Patient: ANDREW Mejias (Age): 1955(58) Med Rec#: [id number] Sex: F Site Loc: [facility] Ht / Wt: 158(cm)/93(kg) Pt. Loc: Adult Floor BSA: 2.02 Study Date: 01/23/2014 Pt. Type: Inpatient Tape: Referring: Lee Kincaid ([id number]) Referring: ANNALISA Customer Success Specialist: Miguel Beverly Diagnosis:CPT Code(s): Echo Full (88311), Spectral Doppler (03274), Color Doppler (87999), Indication(s): Aortic stenosis Rhythm: Sinus HR BP [...] Hypokinetic Mid-Posterolateral Hypokinetic Mid-Inferior Hypokinetic Mid-Inferoseptal Hypokinetic Buhl-Septal Hypokinetic Buhl-Anterior Hypokinetic Buhl-Lateral Hypokinetic Buhl-Inferior Hypokinetic Buhl-Tip Hypokinetic Chambers Value Units (Range) IVSd 2D [...] breath documented in this encounter Care Teams Mortgage Processing Clerk Relationship Specialty Start Date End Date Danni Laird APRN [address] [facility] [facility] [address] PCP - General 01/23/14 11/11/14 documented as of this encounter
--- OUTSIDE RECORDS SUMMARY | 2024-04-25 16:20 | XMS_ITS | Encounter Summary ---
Author Organization [facility] Address [facility] [place] [address] Care Team Providers Care Online Advertising Manager Name Role Phone Deborah Quiroga APRN Primary Care Provider [phone] Reason for Visit * Reason Comments Schedule Office Case * Consultation (Routine) - Closed Specialty Diagnoses / Procedures Referred By Contac t Referred To Contact Hematology and Oncology Diagnoses Leukopenia Neutropenia LEUKOPENIA W/NEUTROPENIA Procedures TC PEGFILGRASTIM, 6MG, INJECTION LEUKOPENIA W/NEUTROPENIA Alirio Esparza MD [facility] CARDIOTHORACIC [place] [address] Mario Alberto Ramos Jr., MD [facility] DR HEMATOLOGY [place] [address] Referral ID Status Reason Start Date Expiration Date V isits Requested Visits Authorized [id number] Closed Consult, Test & Treat 07/17/2016 07/17/2017 1 1 Encounter Details Date Type Department Care Team (Late st Contact Info) Description 06/09/2016 3:00 PM EST Office Visit [place] [address] Mario Alberto Ramos Jr., MD [facility] HEMATOLOGY [place] [address] Cyclical neutropenia Social History Tobacco Use Types [...] 06/09/2016 3:00 PM EST Hematology Outpatient Clinic [facility] Hematology Outpatient Consult Note CC: 60 [...] Unknown See Comment Flow Cytometry Report Unknown [id number] ... HematoPathology: Flow Cytometry DIAGNOSIS 1. No [...] of Hematology/Oncology CC: Dr. Hahn (PCP) Dr. Espazra (CT Surgery) Dr. Escobedo (Cardiology) documented in this encounter Miscellaneous Notes * Addendum Note - Mario Alberto aRmos MD - 06/18/2016 3:09 PM ESTAddended by: MARIO ALBERTO RAMOS on: 06/18/2016 03:09 PM Modules accepted: Orders, SmartSet documented in this encounter Plan of Treatment Upcoming Encounters Date Type Department Care Team (Late st Contact Info) Description 05/12/2024 9:00 AM EDT Appointment [place] [address] 05/12/2024 10:00 AM EDT Office Visit [place] [address] Markel Borjas MD [facility] DR HEMATOLOGY [place] [address] 03/01/2025 4:15 PM EDT Office Visit Dermatology at [place] [address] [place] [address] Marek Bonilla MD [address], [place] [address] documented as of this encounter Procedures Procedure [...] (06/09/2016 4:53 PM EST) Flow Cytometry Report [id number] ?Location: 3K The signing pathologist has (i) [...] by the Clinical Flow Cytometry Laboratory at [facility]. It has not been cleared or [...] high complexity clinical laboratory testing. SPECIMEN PROCESSING [id number] Cells for immunophenotypic analysis were derived from peripheral blood. ??CD45 vs side scatter gating was utilized to identify a lymphoid analysis region that comprises approximately 49-51% of all cells. The following markers were assessed: CD2, CD3, CD4, CD5, CD7, CD8, CD10, CD16, CD19, CD45, CD56, CD57, kappa light chain, and lambda light chain. CLINICAL INFORMATION 60 yo female with neutropenia. LGL panel requested. [facility] 06/09/2016 4:53 PM EST Mario Alberto Ramos Jr., MD PATHOLOGY/CYTOLOGY O RDERABLES Performing Organization Address City/[facility]/ZIP Co de Phone Number [facility] [place] [address] * Scan, Peripheral Blood (06/09/2016 4:53 PM EST) Plat estimate Normal [facility] RBC Morphology Normal [facility] Blood specimen (specimen) 06/09/2016 4:53 PM EST 06/09/2016 5:00 PM EST Narrative Resulting Agency Comment Spec In Lab Mario Alberto Ramos Jr., MD HEMATOLOGY ORDERABLE S Performing Organization Address City/[facility]/ZIP Co de Phone Number [facility] [place] [address] * (ABNORMAL) Differential, Automated (06/09/2016 4:53 PM EST) Pathologist [facility] Neutrophil % 27.7 % [facility] Neutrophil Absolute 0.48(Crit ical) 1.70 - 6.10 x10(3)/mc L [facility] Comment: Matches Previous Results.. This result has been called to NOT CALLED by Jesusita Argueta on 06 09 2016 at 1817, and has not been read back. MATCHES PREVIOUS RESULTS Lymph % 57.2 % [facility] Lymphocytes Abs 1.0 0.9 - 3.2 x10(3)/ L [facility] Monocyte % 13.3 % [facility] Monocyte Abs 0.2(L) 0.3 - 0.9 x10(3)/[facility] Eos % 0.6 % [facility] Eosinophils Abs 0.0 0.0 - 0.4 x10(3)/[facility] Basophil % 1.2 % [facility] Baso Absolute 0.0 0.0 - 0.1 x10(3)/[facility] [...] Immature Gran Absolute 0.00 0.00 - 0.04 x10(3)/[facility] Blood specimen (specimen) 06/09/2016 4:53 PM EST 06/09/2016 5:00 PM EST Narrative Resulting Agency Comment Spec In Lab Mario Alberto Ramos Jr., MD HEMATOLOGY ORDERABLE S Performing Organization Address City/State/[facility] Co de Phone Number [facility] [place] [address] * (ABNORMAL) Hemogram (06/09/2016 4:53 PM EST) White Blood Cell 1.7(Criti gabrielle) 4.0 - 9.5 x10(3)/[facility] Red Blood Cell 3.92(L) 4.00 - 5.21 x10(6)/[facility] Hemoglobin 12.4 11.7 - 15.5 gm/dL [facility] Hematocrit 36.7 35.7 - 45.8 % [facility] Mean Cell Volume 93.6 82.6 - 94.4 fL [facility] Mean Cell Hemoglobin 31.6 27.1 - 32.0 pg [facility] Mean Cell Hemoglobin Concentration 33.8 31.7 - 35.0 gm/dL [facility] Platelet 234 145 - 357 x10(3)/mc L [facility] RDW Standard Deviation 39.8 37.0 - 46.0 fL [facility] RDW coefficient of variation 11.8 11.5 - 14.1 % [facility] Mean Platelet Volume 8.6 7.6 - 12.9 fL [facility] NRBC% auto 0.0 % [facility] NRBC Absolute 0.000 0.000 - 0.000 x10(3)/mc L [facility] Blood specimen (specimen) 06/09/2016 4:53 PM EST 06/09/2016 5:00 PM EST Narrative Resulting Agency Comment Spec In Lab Mario Alberto Ramos Jr., MD HEMATOLOGY ORDERABLE S Performing Organization Address City/[facility]/ZIP Co de Phone Number [facility] [address] * Immunophenotyping Flow Cytometry (06/09/2016 4:53 PM EST) Immunophenotyping Flow See Comment [facility] Comment: When completed by the Pathologist, the Flow Cytometry Report ([id number]) will display under the Pathology Results section within [facility]. Specimen of unknown material (specimen) 06/09/2016 4:53 PM EST 06/09/2016 5:00 PM EST Narrative Resulting Agency Comment Spec In Lab Mario Alberto Ramos Jr., MD HEMATOLOGY ORDERABLE S Performing Organization Address City/[facility]/ZIP Co de Phone Number [facility] [place] [address] documented in this encounter Visit Diagnoses Diagnosis Cyclical neutropenia Cyclic neutropenia documented in this encounter Care Teams Online Advertising Manager Relationship Specialty Start Date End Date Deborah Quiroga APRN PCP - General Family Medicine 03/24/16 02/04/23 documented as of this encounter
--- OUTSIDE RECORDS SUMMARY | 2024-04-27 14:59 | XMS_ITS | Encounter Summary ---
Author Organization [facility] Address [address] [place] [address] Care Team Providers Care Mate First Name Role Phone Unavailable Primary Care Provider Unavailabl e Encounter Details Date Type Department Care Team (Late st Contact Info) Description 03/24/2007 11:06 EDT - 03/24/2007 11:59 EDT Hospital Encounter [facility] - Other [address] [place] [address] Ashley Chavez ARNP [address] [place] [address] Discharge Disposition: Home or Self Care Social [...]
--- OUTSIDE RECORDS SUMMARY | 2024-04-27 14:59 | XMS_ITS | Encounter Summary ---
Author Organization [facility] Address [address] [place] [address] Care Team Providers Care Brass And Wind Instrument Repairer Name Role Phone Ashley Chavez Primary Care Provider [phone] Encounter Details Date Type Department Care Team (Latest Contact Info) Description 05/12/2019 13:18 EDT - 05/12/2019 23:59 EDT Hospital Encounter [address] [address] Unknown, Provider, Discharge Disposition: Home or Self Care Social History Tobacco Use Types Packs/Day Years Used Date Smoking Tobacco: Never Assessed Sex and Gender Information Value Date Recorded Sex Assigned at Not on file Gender Identity Not on file Sexual Orientation Not on file documented as of this encounter Discharge Disposition Disposition Code Departure Means Destination Home or Self Halfway documented in this encounter Plan of Treatment Not on file documented as of this encounter Visit Diagnoses Not on filedocumented in this encounter Care Teams Brass And Wind Instrument Repairer Relationship Specialty Start Date End Date Ashley Chavez ARNP [address] [place] [address] PCP - General 07/11/10 documented as of this encounter
--- OUTSIDE RECORDS SUMMARY | 2024-04-27 14:59 | XMS_ITS | Encounter Summary ---
Author Organization [facility] Address [address] [place] [address] Care Team Providers Care Marketing Performance Analyst Name Role Phone Unavailable Primary Care Provider Unavailabl e Encounter Details Date Type Department Care Team (Late st Contact Info) Description 06/29/2007 Results Only [facility] [address] [place] [address] Sánchez Acevedo MD [address] [place] [address] Social History Tobacco Use Types Packs/Day Years [...] ? 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 Accession #: ? [id number] ? : ? 1955 (Age: 51) ??F [...] covered by a smooth white serosa. ??Three bottling equipment sales representative sections of the gallbladder are submitted in one cassette. ??(Sriram Elias/[facility] End of Report [facility] 06/29/2007 06/29/2007 21: 23 EST Sánchez Acevedo MD PATHOLOGY ORDERABLE S [facility] [address] [place] [address] documented in this encounter Visit Diagnoses Not on filedocumented in this encounter
--- OUTSIDE RECORDS SUMMARY | 2024-04-27 14:59 | XMS_ITS | Referral Summary ---
Author Organization [facility] Address [address] [place] [address] Care Team Providers Care Plastics Fabricator And Assembler Name Role Phone Ashley Chavez Primary Care Provider [phone] Encounters Date Type Department Care Team Description 03/22/2024 Lab Requisition [facility] [address] [address] Consuelo Guerrero, DO Diaphragmatic hernia without obstruction or gangrene; Anemia, unspecified 03/21/2024 Lab Requisition [facility] [address] [address] Consuelo Guerrero DO Encounter for other general examination 03/21/2024 Lab Requisition [facility] [address] [address] Outr Resulting Lab, Provider from Last 3 [...] LORY Negative 03/21/2024 22:31 EDT [facility] Blood VENOUS BLOOD / Unknown 03/21/2024 13:00 EDT 03/21/2024 21:51 EDT Consuelo Guerrero DO BLOOD BANK TESTS Performing Organization Address [facility] Co de Phone Number [facility] [address] [place] [address] * HAPTOGLOBIN (03/21/2024 13:00 EDT) Haptoglobin 183 32 - 197 mg/dL 03/22/2024 10:25 EDT [facility] Blood VENOUS BLOOD / Unknown 03/21/2024 13:00 EDT 03/21/2024 21:50 EDT Provider Outr Resulting Lab CHEMISTRY & BLOOD GAS ORDERABLES Performing Organization Address [facility] Co de Phone Number [facility] [address] [place] [address] * SURGICAL PATHOLOGY (03/21/2024 11:35 EDT) Note to Patient The following pathology results have been interpreted by your pathologist and may be available to you before your health provider has had the opportunity to review them. Please allow time for your provider to receive these results and explore management options, if applicable. 03/24/2024 10:36 EDT [facility] Final Diagnosis A. JEJUNUM, PROXIMAL, [...] 03/22/2024 9:36 03/24/2024 10:36 EDT [facility] Resident/Estuardo w: Luis Felipe Bragg DO 03/24/2024 10:36 EDT [facility] Performing Lab [facility] 10:36 EDT [facility] Scanned Images 03/24/2024 10:36 EDT [facility] Tissue POLYP OF COLON / [...] Consuelo Guerrero DO PATHOLOGY ORDERABLES [facility] [address] [place] [address] from Last 3 Months Care Teams Plastics Fabricator And Assembler Relationship Specialty Start Date End Date Ashley Chavez ARNP [address] [place] [address] PCP - General 07/11/10
--- OUTSIDE RECORDS SUMMARY | 2024-04-27 14:59 | XMS_ITS | Encounter Summary ---
Author Organization [facility] [place] Address [address] [place] [address] Care Team Providers Care Corsets Salesperson Name Role Phone Scott, Ashley WILLIAM Primary Care Provider Encounter Details Date Type Department Care Team (Late st Contact Info) Description 12/23/2016 Results Only [facility] [phone] Deborah Quiroga, CONTRACTOR [employer] THRESHING [address] [place] [address] [phone] Social History Tobacco Use Types Packs/Day Years [...] ? 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 Accession #: ? [id number] ? : ? 1955 (Age: 61) ??F ?Collect Date: ? 12/23/2016 ? Location: ? [facility] ? Receive Date: ? 12/25/2016 ? Provider: DEBORAH QUIROGA EDITOR MANAGING NEWSPAPER Copy to: ? Final Report SPECIMEN ADEQUACY ? Satisfactory for Evaluation - transformation zone component present GENERAL CATEGORIZATION ? Negative for Intraepithelial Lesion or Malignancy ?? Last Menstrual Period: years Specimen/Source: ??Pap Test, Cervix, ThinPrep Imaging System with manual evaluation Document reviewed and electronically signed by: ? [facility](ASCP) ? Report ??Date: 01/06/2017 09:11 HPV with Pap Test ? Date Ordered: ? 01/06/2017 ? Status: ?? Signed Out ?Date Complete: ? 01/07/2017 ? By: ??System Interface ? Date Reported: ? 01/07/2017 ? Interpretation RESULT: Negative for HPV. No E6 or E7 mRNA is detected from HPV types 16,18,31,33,35, 39,45,51,52,56,58, 59,66, and 68 by gemologist mediated amplification. Comments Document reviewed and electronically signed by: ? System Interface ? Report date: 01/07/2017 By the signature above, the attending physician certifies that he/she has personally conducted a gross and/or microscopic examination of the described specimens and rendered or confirmed the above diagnosis. End of Report [facility] 12/23/2016 12/25/2016 Deborah Quiroga CONTRACTOR [employer]OMCORN THRESHING PATHOLOGY ORDERABLES [facility] [address] [place] [address] documented in this encounter Visit Diagnoses Not on filedocumented in this encounter Care Teams Corsets Salesperson Relationship Specialty Start Date End Date Ashley Chavez ARNP [address] [place] [address] PCP - General 07/11/10 documented as of this encounter
--- OUTSIDE RECORDS SUMMARY | 2024-04-27 14:59 | XMS_ITS | Encounter Summary ---
Author Organization [facility] Address [address] [place] [address] Care Team Providers Care Pesticide Use Medical Coordinator Name Role Phone Unavailable Primary Care Provider Unavailabl e Encounter Details Date Type Department Care Team (Late st Contact Info) Description 04/20/[address] [facility] [address] [place] [address] Ziggy Valiente MD [address] [place] [address] [id number] Social History Tobacco Use Types Packs/Day Years [...] ? 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 Accession #: ? [id number] ? : ? 1955 (Age: 49) ??F [...] is entirely submitted in one cassette. ??(Arabella Santos)/[facility] End of Report PAUL ARELLANO 04/20/2005 04/21/2005 15: 04 EDT Ziggy Valiente MD PATHOLOGY ORDERABLES PAUL ARELLANO [address] [place] [address] documented in this encounter Visit Diagnoses Not on filedocumented in this encounter
--- OUTSIDE RECORDS SUMMARY | 2024-04-27 14:59 | XMS_ITS | Encounter Summary ---
Author Organization [facility] Address [address] [place] [address] Care Team Providers Care Wet Washer Machine Name Role Phone Ashley Chavez Primary Care Provider [phone] Encounter Details Date Type Department Care Team (Late st Contact Info) Description 06/23/2016 Results Only [facility] [phone] Matthew Acevedo, DO [address] [facility] TODD HAMILTON [address] [place] [address] Social History Tobacco Use Types Packs/Day [...] ? 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 Accession #: ? [id number] : ? 1955 (Age: 60) ??F ?Collect [...] ??400 ?? KARYOTYPE: 46,XX[25] End of Report [facility] 06/23/2016 06/24/2016 Matthew Acevedo DO PATHOLOGY ORDER JODIE [facility] [address] [place] [address] * FLOW CYTOMETRY (06/23/2016 0:00 EST) Pathology Report: FLOW CYTOMETRY REPORT Reports generated via electronic interface contain original data; however they are lacking the format of the original report. Caution should be taken when reading/interpreting unformatted reports. Name: ? 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 Accession #: ? [id number] : ? 1955 (Age: 60) ??F ?Collect Date: ? 06/23/2016 00:00 Location: ? [facility] ? Receive Date: ? 06/24/2016 08:00 Provider: ?MATTHEW ACEVEDO DO Copy to: ?WINTER HANKINS FRENCH CORD BINDER MARIO ALBERTO RAMOS MD ? FINAL IMMUNOPHENOTYPIC INTERPRETATION: ? Bone marrow, flow cytometric analysis: -No immunophenotypic evidence of a clonal cell population. ??See comment. ? COMMENT: The results of flow cytometry show no immunophenotypic evidence of involvement by a clonal lymphoproliferative or myeloproliferative disorder. ??Correlation of these findings with morphologic and clinical data is essential. ??Please refer to pathology report number [id number] for morphologic details. ? Document reviewed and [...] the Department of Pathology and Laboratory Medicine, [place] ??It has not been cleared or [...] clinical laboratory testing. End of Report ?? [facility] 06/23/2016 06/24/2016 8:0 0 EST Matthew Acevedo DO PATHOLOGY ORDER JODIE [facility] [address] [place] [address] * BONE MARROW/HEMPATH CONSULT (06/23/2016 0:00 EST) Pathology Report: BONE MARROW REPORT Reports generated via electronic interface contain original data; however they are lacking the format of the original report. Caution should be taken when reading/interpreting unformatted reports. Name: ? 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 Accession #: ? [id number] : ? 1955 (Age: 60) ??F ?Collect Date: ? 06/23/2016 Location: ? [facility] ? Receive Date: ? 06/24/2016 Provider: ? MATTHEW ACEVEDO DO Copy to: ?WINTER HANKINS FRENCH CORD BINDER MARIO ALBERTO RAMOS MD ? DIAGNOSIS: Peripheral [...] #1: Aggregate biopsy length: 8 mm with placement officer trabeculae of lamellar bone, cellular bone marrow, [...] SEE ABOVE DISCUSSION Lambda (polyclonal, Dako) ??(B1): [place] (polyclonal, Dako) ??(B1): Biopsy (decalcified) #2: Aggregate biopsy length: 8 mm with placement officer trabeculae of lamellar bone, cellular bone marrow, [...] (M115, Leica) ??(B2): Lambda (polyclonal, Dako) ??(B2): [place] (polyclonal, Dako) ??(B2): NOTE: ??One or [...] performance characteristics have been determined by [facility]. ??The positive and negative controls worked [...] ? 1% Blasts ?1% Special Studies Cytogenetics ([id number]): Pending. Flow Cytometry ([id number]): No immunophenotypic evidence of a clonal cell population. ? End of Report [facility] 06/23/2016 06/24/2016 Matthew Acevedo DO PATHOLOGY ORDER JODIE [facility] [address] [place] [address] documented in this encounter Visit Diagnoses Not on filedocumented in this encounter Care Teams Wet Washer Machine Relationship Specialty Start Date End Date Ashley Chavez ARNP [address] [place] [address] PCP - General 07/11/10 documented as of this encounter
--- OUTSIDE RECORDS SUMMARY | 2024-04-27 14:59 | XMS_ITS | Encounter Summary ---
Author Organization [facility] Address [address] [place] [address] Care Team Providers Care Medical Affairs Specialist Name Role Phone Ashley Chavez Primary Care Provider [phone] Encounter Details Date Type Department Care Team (Late st Contact Info) Description 03/22/2024 Lab Requisition [facility] Pathology & Laboratory Medicine - [address] [address] Consuelo Guerrero, DO [address] [facility] [address] [place], [place] [address] Diaphragmatic hernia without obstruction or gangrene; Anemia, [...] explore management options, if applicable. 03/24/2024 10:36 [facility] Final Diagnosis A. JEJUNUM, [...] - Deeper sections x3 examined. 03/24/2024 10:36 [facility] Attestation There was significant resident/fellow involvement in the diagnostic evaluation of this case. By the signature below, the attending physician certifies that they have personally conducted a gross and/or microscopic examination of the described specimens and rendered or confirmed the above diagnosis. 03/24/2024 10:36 [facility] at 1036 Clinical History Anemia, hiatal hernia, 38 cm aguayo diverticulosis 03/24/2024 10:36 [facility] Gross Description A. Received [...] Torres 03/22/2024 9:36 03/24/2024 10:36 EDT [facility] Resident/Estuardo w: Luis Felipe Bragg DO 03/24/2024 10:36 T [facility] Performing Lab [facility] 10:36 T [facility] Scanned Images 03/24/2024 10:36 T [facility] Tissue POLYP OF COLON [...] EDT Consuelo Guerrero DO PATHOLOGY ORDERABLES [facility] [address] [place] [address] documented in this encounter Visit Diagnoses Diagnosis Diaphragmatic hernia without obstruction or gangrene Diaphragmatic hernia without mention of obstruction or gangrene Anemia, unspecified documented in this encounter Care Teams Medical Affairs Specialist Relationship Specialty Start Date End Date Ashley Chavez ARNP [address] [place] [address] PCP - General 07/11/10 documented as of this encounter
--- OUTSIDE RECORDS SUMMARY | 2024-04-27 14:59 | XMS_ITS | Encounter Summary ---
Author Organization [facility] Address [address] [place] [address] Care Team Providers Care Pediatric Dietician Name Role Phone Ashley Chavez Primary Care Provider [phone] Encounter Details Date Type Department Care Team (Late st Contact Info) Description 01/07/2023 Lab Requisition [facility] Pathology & Laboratory Medicine - [address] [id number] Outr Resulting Lab, Provider Social History Tobacco [...] 56.2 55.8 - 66.1 % 01/08/2023 11:28 [facility] Albumin g/dL 3.9 3.6 - 5.2 g/dL 01/08/2023 11:28 [facility] Alpha-1 % 5.1(H) 2.9 - 4.9 % 01/08/2023 11:28 [facility] Alpha-1 g/dL 0.40 0.15 - 0.40 g/dL 01/08/2023 11:28 [facility] Alpha-2 % 7.0(L) 7.1 - 11.8 % 01/08/2023 11:28 [facility] Alpha-2 g/dL 0.50 0.50 - 1.00 g/dL 01/08/2023 11:28 [facility] Beta % 12.7 8.4 - 13.1 % 01/08/2023 11:28 [facility] Beta g/dL 0.90 0.60 - 1.20 g/dL 01/08/2023 11:28 [facility] Gamma % 19.0(H) 11.1 - 18.8 % 01/08/2023 11:28 [facility] Gamma g/dL 1.30 0.60 - 1.60 g/dL 01/08/2023 11:28 [facility] SPEP Comment No apparent monoclonal protein seen on serum electrophoresis 01/08/2023 11:28 [facility] Comment:See scanned/suppleme ntary report. Total Protein 6.9 6.3 - 8.2 g/dL 01/08/2023 11:28 [facility] Blood VENOUS BLOOD / Unknown 01/06/2023 14:40 EDT 01/07/2023 17:37 EDT Provider Outr Resulting Lab CHEMISTRY & BLOOD GAS ORDERABLES Performing Organization Address City/State/[facility] Co de Phone Number [facility] [address] [place] [address] * PROTEIN, TOTAL (01/06/2023 14:40 EDT) Blood VENOUS BLOOD / Unknown 01/06/2023 14:40 EDT 01/07/2023 17:37 EDT Provider Outr Resulting Lab CHEMISTRY & BLOOD GAS ORDERABLES Performing Organization Address [facility] Co de Phone Number [facility] [address] [place] [address] * (ABNORMAL) EXTRACTABLE NUCLEAR ANTIGEN PANEL (01/06/2023 14:40 EDT) SSA Antibody 1.3 <20.0 Units 01/08/2023 15:42 EDT [facility] Comment: ? Negative: [...] Antibody 1.5 <20.0 Units 01/08/2023 15:42 EDT [facility] Comment: ? Negative: [...] Antibody 15.3 <20.0 Units 01/08/2023 15:42 EDT [facility] Comment: ? Negative: <20.0 Units ? Weak Positive: 20.0 - 39.9 Units ? Moderate Positive: 40.0 - 80.0 Units ? Strong Positive: >80.0 Units Results were obtained with the Fly6VA QUANTA Lite Sm DOMO. ??Sm values obtained with different manufacturers' assay methods may not be used interchangeably. ??The magnitude of the reported IgG levels cannot be correlated to an endpoint titer. HEARING HEALTHCARE PRACTITIONER Antibody 149.1(H) <20.0 Units 01/08/2023 15:42 EDT [facility] Comment: ? Negative: <20.0 Units ? Weak Positive: 20.0 - 39.9 Units ? Moderate Positive: 40.0 - 80.0 Units ? Strong Positive: >80.0 Units Results were obtained with the Datacastleva Quanta Lite [facility] HEALTHCARE PRACTITIONER DOMO. HEARING HEALTHCARE PRACTITIONER values obtained with different arabic linguist's assay methods may not be used interchangeaby. ??The magnitude of the reported IgG levels cannot be be correlated to an endpoint titer. A positive result in the Quanta Lite HEARING HEALTHCARE PRACTITIONER DOMO indicates the presence of antibodies reactive with the HEARING HEALTHCARE PRACTITIONER/Sm complex but cannot distinguish between anti-Sm and anti-HEARING HEALTHCARE PRACTITIONER activity. Blood VENOUS BLOOD / Unknown 01/06/2023 14:40 EDT 01/07/2023 17:37 EDT Provider Outr Resulting Lab IMMUNOLOGY A ND SEROLOGY ORDERABLES [facility] [address] [place] [address] * (ABNORMAL) ANTI NUCLEAR AB (FRANCISCO), IFA (01/06/2023 14:40 EDT) FRANCISCO Interpretation Positive(A) Negative 01/08/2023 15:22 EDT [facility] Comment: Result is [...] Pattern 1 1:5120 Speckled 01/08/2023 15:22 EDT [facility] Blood VENOUS BLOOD / Unknown 01/06/2023 14:40 EDT 01/07/2023 17:37 EDT Narrative [facility] - 01/08/2023 15:22 EDT Results were obtained with the INOVA NOVA Lite HEp-2 FRANCISCO Kit by indirect immunofluorescence. Provider Outr Resulting Lab IMMUNOLOGY A ND SEROLOGY ORDERABLES Performing Organization Address City/State/[facility] Co de Phone Number [facility] [address] [place] [address] documented in this encounter Visit Diagnoses Not on filedocumented in this encounter Care Teams Pediatric Dietician Relationship Specialty Start Date End Date Ashley Chavez ARNP [address] [place] [address] PCP - General 07/11/10 documented as of this encounter
--- OUTSIDE RECORDS SUMMARY | 2024-04-27 14:59 | XMS_ITS | Encounter Summary ---
Author Organization [facility] Address [address] [place] [address] Care Team Providers Care Wool Brusher Name Role Phone Scott, Ashley WILLIAM Primary Care Provider [phone] Encounter Details Date Type Department Care Team (Late st Contact Info) Description 03/21/2024 Lab Requisition [facility] Pathology & Laboratory Medicine - [address] [address] Consuelo Guerrero, DO [address] [facility] [address] [place], [place] [address] Encounter for other general examination Social History [...] EDT) LORY Negative 03/21/2024 22:31 EDT [facility] Blood VENOUS BLOOD / Unknown 03/21/2024 13:00 EDT 03/21/2024 21:51 EDT Consuelo Guerrero DO BLOOD BANK TESTS [facility] [address] [place] [address] documented in this encounter Visit Diagnoses Diagnosis Encounter for other general examination documented in this encounter Care Teams Wool Brusher Relationship Specialty Start Date End Date Ashley Chavez ARNP [address] [place] [address] PCP - General 07/11/10 documented as of this encounter
--- OUTSIDE RECORDS SUMMARY | 2024-04-27 14:59 | XMS_ITS | Encounter Summary ---
Author Organization [facility] Address [address] [place] [address] Care Team Providers Care Prison Guard Name Role Phone Ashley Chavez Primary Care Provider [phone] Encounter Details Date Type Department Care Team (Late st Contact Info) Description 03/21/2024 Lab Requisition [facility] Pathology & Laboratory Medicine - [address] [address] Outr Resulting Lab, Provider Social History Tobacco [...] 197 mg/dL 03/22/2024 10:25 EDT [facility] Blood VENOUS BLOOD / Unknown 03/21/2024 13:00 EDT 03/21/2024 21:50 EDT Provider Outr Resulting Lab CHEMISTRY & BLOOD GAS ORDERABLES [facility] [address] [place] [address] documented in this encounter Visit Diagnoses Not on filedocumented in this encounter Care Teams Prison Guard Relationship Specialty Start Date End Date Ashley Chavez ARNP [address] [place] [address] PCP - General 07/11/10 documented as of this encounter
--- OUTSIDE RECORDS SUMMARY | 2024-04-27 14:59 | XMS_ITS | Encounter Summary ---
Author Organization [facility] Address [address] [place] [address] Care Team Providers Care Network Associate Name Role Phone Ashley Chavez Primary Care Provider [phone] Encounter Details Date Type Department Care Team (Late st Contact Info) Description 04/29/2022 Lab Requisition [facility] Pathology & Laboratory Medicine - [address] [address] Outr Resulting Lab, Provider Social History Tobacco [...] Antibody 1.6 <20.0 Units 04/30/2022 12:23 EDT [facility] Comment: ? Negative: <20.0 [...] A ND SEROLOGY ORDERABLES Performing Organization Address [facility] de Phone Number [facility] [address] [place] [address] * SSA ANTIBODIES BY DOMO (04/29/2022 7:51 EDT) SSA Antibody 1.5 <20.0 Units 04/30/2022 12:22 EDT [facility] Comment: ? Negative: <20.0 [...] ND SEROLOGY ORDERABLES Performing Organization Address [facility] de Phone Number [facility] [address] [place] [address] documented in this encounter Visit Diagnoses Not on filedocumented in this encounter Care Teams Network Associate Relationship Specialty Start Date End Date Ashley Chavez ARNP [address] [place] [address] PCP - General 07/11/10 documented as of this encounter
--- OUTSIDE RECORDS SUMMARY | 2024-04-27 14:59 | XMS_ITS | Encounter Summary ---
Author Organization [facility] Address [address] [place] [address] Care Team Providers Care Pharmaceutical Compounding Supervisor Name Role Phone Scott Ashley WILLIAM Primary Care Provider [phone] Encounter Details Date Type Department Care Team (Late st Contact Info) Description 11/10/2013 Results Only [facility] [phone] Jeni Laird, DIE ENGRAVER [address] [place], [place] [id number] Social History Tobacco Use Types Packs/Day Years [...] ? 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 Accession #: ? [id number] : ? 1955 (Age: 58) ??F ?Collect Date: ? 11/10/2013 Location: ? [facility] ? Receive Date: ? 11/14/2013 Provider: ?JENI LAIRD DIE ENGRAVER Copy to: ? Specimen/Source: ?Pap Test, Endocervix, [...] Report PAUL ARELLANO 11/10/2013 11/14/2013 Jeni Laird DIE ENGRAVER PATHOLOGY ORDERAB LES Performing Organization Address City/State/[facility] Co de Phone Number PAUL ARELLANO [address] [place] [address] documented in this encounter Visit Diagnoses Not on filedocumented in this encounter Care Teams Pharmaceutical Compounding Supervisor Relationship Specialty Start Date End Date Ashley Chavez ARNP [address] [place] [address] PCP - General 07/11/10 documented as of this encounter
--- OUTSIDE RECORDS SUMMARY | 2024-04-27 14:59 | XMS_ITS | Encounter Summary ---
Author Organization [facility] Address [address] [place] [address] Care Team Providers Care Funeral Home Assistant Name Role Phone Unavailable Primary Care Provider Unavailabl e Encounter Details Date Type Department Care Team (Late st Contact Info) Description 07/08/2010 10:55 EST - 07/08/2010 10:56 EST Hospital Encounter [facility] - Other [address] [place] [address] Ashley Chavez, WILLIAM [address] [place] [address] Discharge Disposition: Home or Self Care Social [...]
--- OUTSIDE RECORDS SUMMARY | 2024-04-27 14:59 | XMS_ITS | Encounter Summary ---
Author Organization [facility] Address [address] [place] [address] Care Team Providers Care Natural Resources Engineer Name Role Phone Unavailable Primary Care Provider Unavailabl e Encounter Details Date Type Department Care Team (Late st Contact Info) Description 03/24/2007 Results Only [facility] Non-Invasive Cardiology - [facility] [address] [place], [place] [address] Ashley Chavez ARNP [address] [place] [address] Social History Tobacco Use Types Packs/Day Years [...] ? 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 Accession #: ? [id number] : ? 1955 (Age: 51) ??F ?Collect Date: ? 03/24/2007 Location: ? [facility] ? Receive Date: ? 03/28/2007 Provider: ?ASHLEY THOMAS Copy to: ? Specimen/Source: ?ThinPrep Pap Test, Endocervix, processed on [employer] ThinPrep Imaging System, with manual evaluation Last [...] Ashley THOMAS PATHOLOGY ORDERABLES PAUL ARELLANO [address] [place] [address] documented in this encounter Visit Diagnoses Not on filedocumented in this encounter
--- OUTSIDE RECORDS SUMMARY | 2024-04-27 14:59 | XMS_ITS | Encounter Summary ---
Author Organization [facility] Address [address] [place] [address] Care Team Providers Care Casework Manager Name Role Phone Ashley Chavez Primary Care Provider [phone] Encounter Details Date Type Department Care Team (Late st Contact Info) Description 12/17/[address] [facility] Pathology & Laboratory Medicine - [address] [address] Outr Resulting Lab, Provider Social History Tobacco [...] Lyme Ab Negative Negative 12/18/2021 10:37 EDT [facility] Blood VENOUS BLOOD / Unknown 12/17/2021 13:30 EDT 12/17/2021 21:32 EDT Provider Outr Resulting Lab IMMUNOLOGY A ND SEROLOGY ORDERABLES Performing Organization Address [facility] Co de Phone Number [facility] [address] [place] [address] * (ABNORMAL) ANTI NUCLEAR AB (FRANCISCO), IFA (12/17/2021 13:30 EDT) FRANCISCO Interpretation Positive(A) Negative 12/18/2021 16:06 EDT [facility] Comment: For titers [...] Pattern 1 1:1280 Speckled 12/18/2021 16:06 EDT [facility] Blood VENOUS BLOOD / Unknown 12/17/2021 13:30 EDT 12/17/2021 21:32 EDT Narrative [facility] - 12/18/2021 16:06 EDT Results were obtained with the INOVA NOVA Lite HEp-2 FRANCISCO Kit by indirect immunofluorescence. Provider Outr Resulting Lab IMMUNOLOGY A ND SEROLOGY ORDERABLES Performing Organization Address [facility] Co de Phone Number [facility] [address] [place] [address] documented in this encounter Visit Diagnoses Not on filedocumented in this encounter Care Teams Casework Manager Relationship Specialty Start Date End Date Ashley Chavez ARNP [address] [place] [address] PCP - General 07/11/10 documented as of this encounter
--- OUTSIDE RECORDS SUMMARY | 2024-04-27 14:59 | XMS_ITS | Encounter Summary ---
Author Organization [facility] Address [address] [place] [address] Care Team Providers Care Field Worker Name Role Phone Ashley Chavez Primary Care Provider [phone] Encounter Details Date Type Department Care Team (Late st Contact Info) Description 10/30/2022 Lab Requisition [facility] Pathology & Laboratory Medicine - [address] [address] Outr Resulting Lab, Provider Social History Tobacco [...] Stranded) <12.3 <30.0 IU/mL 11/03/2022 13:08 EDT [facility] Comment: ? Negative: ??<30.0 IU/mL ? Borderline Positive: ??30.0 - 75.0 IU/mL ? Positive: ??>75.0 IU/mL Results were obtained with the INOVA QUANTA Lite dsDNA SC DOMO assay on the [employer] DSX. Blood VENOUS BLOOD / Unknown 10/29/2022 14:00 EDT 10/30/2022 19:27 EDT Provider Outr Resulting Lab IMMUNOLOGY A ND SEROLOGY ORDERABLES Performing Organization Address [facility] de Phone Number [facility] [address] [place] [address] * SM (MORENO) ANTIBODY (10/29/2022 14:00 EDT) [facility] SM (Moreno) Antibody 18.5 <20.0 Units 11/03/2022 14:26 EDT [facility] Comment: ? Negative: <20.0 [...] ND SEROLOGY ORDERABLES Performing Organization Address [facility] de Phone Number [facility] [address] [place] [address] documented in this encounter Visit Diagnoses Not on filedocumented in this encounter Care Teams Field Worker Relationship Specialty Start Date End Date Ashley Chavez ARNP [address] [place] [address] PCP - General 07/11/10 documented as of this encounter
--- OUTSIDE RECORDS SUMMARY | 2024-04-27 14:59 | XMS_ITS | Encounter Summary ---
Author Organization [facility] Address [address] [place] [address] Care Team Providers Care Cloth Mercerizer Operator Name Role Phone Scott Ashley WILLIAM Primary Care Provider [phone] Encounter Details Date Type Department Care Team (Late st Contact Info) Description 05/12/2019 Results Only [facility] [phone] Nadira Gregorio MD [address] [place] [phone] Social History Tobacco Use Types Packs/Day [...] ? 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 Accession #: ? [id number] ? : ? 1955 (Age: 63) ??F ? Collect Date: ? 05/12/2019 ? Location: ? [facility] ? Receive Date: ? 05/12/2019 ? Provider: NADIRA GREGORIO MD Copy to: WINTER HANKINS WINDER FIXER ? Final Pathologic Diagnosis: COLON, CECUM, POLYP, [...] 05/12/2019 6:08 PM End of Report [facility] 05/12/2019 16:0 3 EDT 05/12/2019 16:03 EDT Nadira Gregorio MD PATHOLOGY ORDERABLES [facility] [address] [place] [address] documented in this encounter Visit Diagnoses Not on filedocumented in this encounter Care Teams Cloth Mercerizer Operator Relationship Specialty Start Date End Date Ashley Chavez ARNP [address] [place] [address] PCP - General 07/11/10 documented as of this encounter
--- OUTSIDE RECORDS SUMMARY | 2024-04-27 14:59 | XMS_ITS | Encounter Summary ---
Author Organization [facility] Address [address] [place] [address] Care Team Providers Care Customer Support Technician Name Role Phone Ashley Chavez Primary Care Provider [phone] Encounter Details Date Type Department Care Team (Late st Contact Info) Description 05/12/2022 Lab Requisition [facility] Pathology & Laboratory Medicine - [address] [id number] Outr Resulting Lab, Provider Social History Tobacco [...] 14:32 EDT) Hold Hold 05/12/2022 22:46 EDT [facility] Blood VENOUS BLOOD / Unknown 05/12/2022 14:32 EDT 05/12/2022 21:40 EDT Provider Outr Resulting Lab LAB INFO SER VICE AND SUPPORT & PHONE RESULT Performing Organization Address [facility]/ZIP Co de Phone Number [facility] [address] [place] [address] * (ABNORMAL) HOMOCYSTEINE (05/12/2022 14:32 EDT) Homocysteine 14.7(H) 5.0 - 13.9 umol/L 05/13/2022 9:05 EDT [facility] Comment:Results may be false ly elevated if sample is not collected on ice or is not removed from cells within 1 hour of collection. Blood VENOUS BLOOD / Unknown 05/12/2022 14:32 EDT 05/12/2022 21:40 EDT Narrative [facility] - 05/13/2022 9:05 EDT [...] & BLOOD GAS ORDERABLES Performing Organization Address [facility] Co de Phone Number [facility] [address] [place] [address] * HAPTOGLOBIN (05/12/2022 14:32 EDT) Pathologist [facility] Haptoglobin 138 32 - 197 mg/dL 05/13/2022 9:55 EDT [facility] Blood VENOUS BLOOD / Unknown 05/12/2022 14:32 EDT 05/12/2022 21:36 EDT Provider Outr Resulting Lab CHEMISTRY & BLOOD GAS ORDERABLES Performing Organization Address [facility] Co de Phone Number [facility] [address] [place] [address] * (ABNORMAL) ANTI NUCLEAR AB (FRANCISCO), IFA (05/12/2022 14:32 EDT) FRANCISCO Interpretation Positive(A) Negative 05/13/2022 14:44 EDT [facility] Comment: Result is [...] Pattern 1 1:5120 Speckled 05/13/2022 14:44 EDT [facility] Blood VENOUS BLOOD / Unknown 05/12/2022 14:32 EDT 05/12/2022 21:36 EDT Narrative [facility] - 05/13/2022 14:44 EDT Results were obtained with the INOVA NOVA Lite HEp-2 FRANCISCO Kit by indirect immunofluorescence. Provider Outr Resulting Lab IMMUNOLOGY A ND SEROLOGY ORDERABLES [facility] [address] [place] [address] documented in this encounter Visit Diagnoses Not on filedocumented in this encounter Care Teams Customer Support Technician Relationship Specialty Start Date End Date Ashley Chavez ARNP [address] [place] [address] PCP - General 07/11/10 documented as of this encounter
--- OUTSIDE RECORDS SUMMARY | 2024-04-27 14:59 | XMS_ITS | Clinical Summary ---
Author Organization [facility] Address [address] [place] [address] Care Team Providers Care Senior Product Integrity Engineer Name Role Phone Ashley Chavez Primary Care Provider [phone] Encounters Date Type Department Care Team Description 03/22/2024 Lab Requisition [facility] Pathology & Laboratory [address] [address] Consuelo Guerrero, DO Diaphragmatic hernia without obstruction or gangrene; Anemia, unspecified 03/21/2024 Lab Requisition [facility] Pathology & Laboratory [address] [address] Consuelo Guerrero, DO Encounter for other general examination 03/21/2024 Lab Requisition [facility] Pathology & Laboratory [address] [address] Outr Resulting Lab, Provider from Last 3 [...] EDT) LORY Negative 03/21/2024 22:31 EDT [facility] Blood VENOUS BLOOD / Unknown 03/21/2024 13:00 EDT 03/21/2024 21:51 EDT Consuelo Guerrero DO BLOOD BANK TESTS Performing Organization Address [facility] Co de Phone Number [facility] [address] [place] [address] * HAPTOGLOBIN (03/21/2024 13:00 EDT) Haptoglobin 183 32 - 197 mg/dL 03/22/2024 10:25 EDT [facility] Blood VENOUS BLOOD / Unknown 03/21/2024 13:00 EDT 03/21/2024 21:50 EDT Provider Outr Resulting Lab CHEMISTRY & BLOOD GAS ORDERABLES Performing Organization Address [facility]/ZIP Co de Phone Number [facility] [address] [place], [place] [address] * SURGICAL PATHOLOGY (03/21/2024 11:35 EDT) Note to Patient The following pathology results have been interpreted by your pathologist and may be available to you before your health provider has had the opportunity to review them. Please allow time for your provider to receive these results and explore management options, if applicable. 03/24/2024 10:36 EDT [facility] Final Diagnosis A. JEJUNUM, PROXIMAL, [...] - Deeper sections x3 examined. 03/24/2024 10:36 [facility] Attestation There was significant resident/fellow involvement in the diagnostic evaluation of this case. By the signature below, the attending physician certifies that they have personally conducted a gross and/or microscopic examination of the described specimens and rendered or confirmed the above diagnosis. 03/24/2024 10:36 [facility] at [address] Clinical History Anemia, hiatal hernia, 38 cm aguayo diverticulosis 03/24/2024 10:36 [facility] Gross Description A. [...] Torres 03/22/2024 9:36 03/24/2024 10:36 EDT [facility] Resident/Estuardo w: Luis Felipe Bragg DO 03/24/2024 10:36 EDT [facility] Performing Lab [facility] 10:36 EDT [facility] Scanned Images 03/24/2024 10:36 EDT [facility] Tissue POLYP OF COLON / [...] 8:19 EDT Consuelo Guerrero DO PATHOLOGY ORDERABLES [facility] [address] [place] [address] from Last 3 Months Care Teams Senior Product Integrity Engineer Relationship Specialty Start Date End Date Ashley Chavez ARNP [address] [place] [address] PCP - General 07/11/10
--- OUTSIDE RECORDS SUMMARY | 2024-04-27 14:59 | XMS_ITS | Encounter Summary ---
Author Organization [facility] Address [address] [place] [address] Care Team Providers Care Type Photography Supervisor Name Role Phone Unavailable Primary Care Provider Unavailabl e Encounter Details Date Type Department Care Team (Late st Contact Info) Description 07/08/2010 Results Only [facility] Non-Invasive Cardiology - [facility] [address] [place] [address] Ashley Chavez, WILLIAM [address] [place] [address] Social History Tobacco Use Types Packs/Day Years [...] ? 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 Accession #: ? [id number] ? : ? 1955 (Age: 54) ??F [...] Ashley THOMAS PATHOLOGY ORDERABLES PAUL ARELLANO [address] [place] [address] documented in this encounter Visit Diagnoses Not on filedocumented in this encounter
--- OUTSIDE RECORDS SUMMARY | 2024-04-27 15:00 | XMS_ITS | Encounter Summary ---
[place] [address] Care Team Providers Care Photograph Developer Name Role Phone Magdalena Acosta MD Primary Care Provider [phone] Encounter Details Date Type Department Care Team (Latest Contact Info) Description 07/08/2023 12:35 PM EST Laboratory Appointment Lab [address] [place] [address] S/P TAVR (transcatheter aortic valve [...] AM EDT Appointment Hematology [place] [phone] 05/12/2024 10:00 AM EDT Office Visit Hematology [place] [address] Markel Borjas MD [address] [facility] [address] [place] [address] 03/01/2025 4:15 PM EDT Office Visit Dermatology at [place] [address] [place] [phone] Marek Bonilla MD [address] [place] [address] documented as of this encounter Procedures Procedure [...] 11:56 AM EST) Neutrophil % 73.2 % [facility] Neutrophil Absolute 3.40 1.70 - 6.10 x10(3)/mc L [facility] Lymph % 16.1 % [facility] Lymphocytes Abs 0.8(L) 0.9 - 3.2 x10(3)/mc L [facility] Monocyte % 9.7 % [facility] Monocyte Abs 0.4 0.3 - 0.9 x10(3)/mc L [facility] Eos % 0.4 % [facility] Eosinophils Abs 0.0 0.0 - 0.4 x10(3)/mc L [facility] Basophil % 0.4 % [facility] Baso Absolute 0.0 0.0 - 0.1 x10(3)/ L [facility] Immature Gran % 0.20 % [facility] Comment: Immature granulocytes(IG's)percentage and absolute count will include metamyelocytes, myelocytes, and promyelocytes. Blood smears from CBCs yielding IG's will be scanned manually for concordance. If this scan disagrees with the automated IG or if promyelocytes are noted, a manual differential will be performed. Immature Gran Absolute 0.01 0.00 - 0.04 x10(3)/ L [facility] Blood 07/08/2023 11:5 6 AM EST 07/08/2023 12:02 PM EST Narrative Resulting Agency Comment Spec In Lab Minh TOBAR HEMATOLOGY ORDERABLE S [facility] [place] [address] * (ABNORMAL) Hemogram (07/08/2023 11:56 AM EST) White Blood Cell 4.6 4.0 - 9.5 x10(3)/[facility] Red Blood Cell 3.34(L) 4.00 - 5.21 x10(6)/[facility] Hemoglobin 11.0(L) 11.7 - 15.5 g/dL [facility] Hematocrit 33.2(L) 35.7 - 45.8 % [facility] Mean Cell Volume 99.4(H) 82.6 - 94.4 fL [facility] Mean Cell Hemoglobin 32.9(H) 27.1 - 32.0 pg [facility] Mean Cell Hemoglobin Concentration 33.1 31.7 - 35.0 g/dL [facility] Platelet 166 145 - 357 x10(3)/[facility] RDW Standard Deviation 47.1(H) 37.0 - 46.0 fL [facility] RDW coefficient of variation 13.0 11.5 - 14.1 % [facility] Mean Platelet Volume 9.0 7.6 - 12.9 fL [facility] NRBC% auto 0.0 % [facility] NRBC Absolute 0.000 0.000 - 0.000 x10(3)/ L [facility] Blood 07/08/2023 11:5 6 AM EST 07/08/2023 12:02 PM EST Narrative Resulting Agency Comment Spec In Lab Minh TOBAR HEMATOLOGY ORDERABLE S [facility] [place] [address] * (ABNORMAL) Comprehensive metabolic panel (non-fasting) (07/08/2023 11:56 AM EST) Glucose 93 65 - 199 mg/dL [facility] Comment:Diabetes: >=200 mg/d L plus symptoms Blood Urea Nitrogen 19(H) 8 - 18 mg/dL [facility] Creatinine 0.81 0.70 - 1.20 mg/dL [facility] Sodium 142 135 - 145 mmol/L [facility] Potassium 3.8 3.5 - 5.0 mmol/L [facility] Comment: Please note: ??Patients with WBC >100,000 may have falsely elevated Potassium levels. ??For accurate Potassium quantification in these patients send serum separator tube (gold top) for subsequent determinations. ??Contact the Clinical Chemistry Laboratory if there are any questions. Chloride 104 98 - 107 mmol/L [facility] Carbon Dioxide 26 22 - 31 mmol/L [facility] Anion Gap 12 5 - 15 mmol/L [facility] Calcium 10.2 8.5 - 10.5 mg/dL [facility] Protein, Total 7.4 6.1 - 8.0 g/dL [facility] Albumin 4.1 3.2 - 5.2 g/dL [facility] Aspartate Aminotransferase 24 0 - 30 unit/L [facility] Alanine Aminotransferase 12 0 - 30 unit/L [facility] Alkaline Phosphatase 93 35 - 105 unit/L [facility] Bilirubin, Total 0.3 0.2 - 1.3 mg/dL [facility] Est Glomerular Filtration Rate 80 >=60 mL/min/1. 73 m?? [facility] Comment: This patient's estimated GFR was [...] Lab Alirio Esparza MD [place] [address] documented in this encounter Visit Diagnoses Diagnosis S/P TAVR (transcatheter aortic valve replacement) Severe aortic stenosis Aortic valve disorders documented in this encounter Care Teams Photograph Developer Relationship Specialty Start Date End Date Magdalena Acosta MD [address] [place] [address] PCP - General Family Medicine 02/05/23 documented as of this encounter
--- OUTSIDE RECORDS SUMMARY | 2024-04-27 15:00 | XMS_ITS | Encounter Summary ---
Author Organization [facility] [place] [address] Care Team Providers Care Boat Joiner Helper Name Role Phone Magdalena Acosta MD Primary Care Provider [phone] Reason for Referral * Diagnostic Test (Routine) - New Request Specialty Diagnoses / Procedures Referred By Contac t Referred To Contact Cardiology Diagnoses S/P TAVR (transcatheter aortic valve replacement) Procedures Echocardiogram Transthoracic Antelmo Sharma MD [facility] [place] [address] [facility] [place] [address] Referral ID Status Reason Start Date Expiration Date Visits Requested Visits Authorized [id number] New Request Specialty Service Requested 12/16/2023 12/15/2024 1 1 Encounter Details Date Type Department Care Team (Late st Contact Info) Description 12/16/2023 Orders Only Cardiology at [address] [address] Antelmo Sharma MD [facility] [address] S/P TAVR (transcatheter aortic valve [...] EDT Appointment Hematology [place] [address] 05/12/2024 10:00 AM EDT Office Visit Hematology [place] [address] Markel Borjas MD [facility] [address] [place] [address] 03/01/2025 4:15 PM EDT Office Visit Dermatology at [place] [address] [place] [phone] Marek Bonilla MD [address], [place] [address] Scheduled Orders Name Type Priority Associated Diagnoses [...] replacement) documented in this encounter Care Teams Boat Joiner Helper Relationship Specialty Start Date End Date Magdalena Acosta MD [address] [place] [address] PCP - General Family Medicine 02/05/23 documented as of this encounter
--- OUTSIDE RECORDS SUMMARY | 2024-04-27 15:00 | XMS_ITS | Encounter Summary ---
Author Organization [facility] [place] [address] Care Team Providers Care Normalizer Name Role Phone Magdalena Acosta MD Primary Care Provider [phone] Reason for Visit * Reason Comments Coronary Artery Disease Hypertension Aortic Stenosis Encounter Details Date Type Department Care Team (Latest Contact Info) Description 07/20/2023 4:40 PM EST TH Visit (TeleHealth) Cardiology at [address] [address] Jay Maza PA [facility] [place] [address] HFrEF (heart failure with reduced ejection fraction); [...] PA - 07/20/2023 4:40 PM EST [facility] Interventional Cardiology CARDIOLOGY [...] lieu of an in person office visit. Coating Technician: Antelmo Sharma MD ([facility] Cards) Maria Luz Mejia MD ([facility] cards) Problem List: : prior surgical [...] fraction I35.0 Mild coronary artery disease by [facility] 11/09/2022 I25.10 Heart failure with reduced [...] notable for coronary artery protection given low hjanm-cr-gnutkugu distance. There was no obstruction post Valve deployment, but the stent could not be removed safely, so it was deployed. 4.0 mm x 30mm in left main. She was loaded on brilinta aka ticagrelor. Immediately post valve deployment, chest compressions to circulate central epinephrine which was administered given her hypotension, low LVEF, and low cardiac reserve. Next, the patient was transferred to [facility] for pressor and inotropic support. Pressors weaned overnight. Cardiac indices by thermodilution remained greater than 3 with continued Milrinone 0.125 mcg/kg/min. EKG the next day with NSR with stable NM/QRS intervals. Hemoglobin 7.8 today from 8.5, likely [...] arms and wrists. Successful right transfemoral TAVR [id number] with a 23 mm Lai 3 THV. [...] leads Confirmed by MD Harshil, Haris Bell ([id number]) on 05/10/2023 8:11:46 AM Cardiac Cath 11/09/2022 [...] in chart review and direct patient contact. [id number] 0-5min [id number] 6-10min [id number] 11-15min [id number] 16-20min x [id number] 21-30min 7725DTN3 31-40min 9450QLN0 40+ min Jay Maza PA-C Interventional Cardiology [facility] Pager [phone] documented in this encounter Plan of Treatment Upcoming Encounters Date Type Department Care Team (Late st Contact Info) Description 05/12/2024 9:00 AM EDT Appointment Hematology [place] [address] 05/12/2024 10:00 AM EDT Office Visit Hematology [place] [address] Markel Borjas MD [facility] [address] [place] [address] 03/01/2025 4:15 PM EDT Office Visit Dermatology at [place] [address] [place] [address] Marek Bonilla MD [address] [place] [address] documented as of this encounter Visit Diagnoses Diagnosis HFrEF (heart failure with reduced ejection fraction) Hypertension, unspecified type Aortic valve stenosis, etiology of cardiac valve disease unspecified documented in this encounter Care Teams Normalizer Relationship Specialty Start Date End Date Magdalena Acosta MD [address] [place] [address] PCP - General Family Medicine 02/05/23 documented as of this encounter
--- OUTSIDE RECORDS SUMMARY | 2024-04-27 15:00 | XMS_ITS | Encounter Summary ---
Author Organization [facility] [place] [address] Care Team Providers Care Neurological Surgery Teacher Name Role Phone Magdalena Acosta MD Primary Care Provider [phone] Encounter Details Date Type Department Care Team (Late st Contact Info) Description 07/08/2023 10:15 AM EST Office Visit Cardiology at [address] [phone] Severe aortic stenosis Social History Tobacco Use [...] AM EDT Appointment [place] [address] 05/12/2024 10:00 AM EDT Office Visit [place] [address] Markel Borjas MD [facility] [place] [address] 03/01/2025 4:15 PM EDT Office Visit Dermatology at [place] [address] [place] [address] Marek Bonilla MD [address], [place] [address] documented as of this encounter Procedures Procedure [...] (Bezet) 449 ms MUSE SYSTEM Calculated P [place] 66 degrees MUSE SYSTEM Calculated R [place] 60 degrees MUSE SYSTEM Calculated T [place] 53 degrees MUSE SYSTEM INTERPRETATION Normal sinus rhythm Minimal voltage criteria for LVH, may be normal variant ( Sokolow-Orozco ) ST & T wave abnormality, consider lateral ischemia ??vs. repolarization abnormality from LVH Abnormal ECG When compared with ECG of 13-MAY-2023 09:22, Premature ventricular complexes are no longer Present Minimal criteria for Septal infarct are no longer Present Confirmed by Maxx Best ([id number]) on 07/09/2023 10:07:22 AM MUSE SYSTEM 07/08/2023 10:2 7 AM EST 07/09/2023 10:07 AM EST Brody Dale Eusebio OSBORN ECG ORDERABLES [employer]izim[employer] SYSTEM documented in this encounter Visit Diagnoses Diagnosis Severe aortic stenosis Aortic valve disorders documented in this encounter Care Teams Neurological Surgery Teacher Relationship Specialty Start Date End Date Magdalena Acosta MD [address] [place] [address] PCP - General Family Medicine 02/05/23 documented as of this encounter
--- OUTSIDE RECORDS SUMMARY | 2024-04-27 15:00 | XMS_ITS | Encounter Summary ---
Author Organization [facility] [place] [address] Care Team Providers Care Leather Production Worker Name Role Phone Magdalena Acosta MD [...] Hematology [place] [address] 05/12/2024 10:00 AM EDT Office Visit Hematology [place] [address] Markel Borjas MD [facility] [address] [place] [address] 03/01/2025 4:15 PM EDT Office Visit Dermatology at [place] [address] [place] [address] Marek Bonilla MD [address], [place] [address] documented as of this encounter Visit Diagnoses Not on filedocumented in this encounter Care Teams Leather Production Worker Relationship Specialty Start Date End Date Magdalena Acosta MD [address] [place] [address] PCP - General Family Medicine 02/05/23 documented as of this encounter
--- OUTSIDE RECORDS SUMMARY | 2024-04-27 15:00 | XMS_ITS | Encounter Summary ---
[place] [address] Care Team Providers Care Power Technician Name Role Phone Magdalena Acosta MD Primary Care Provider [phone] Reason for Visit * Reason Onset Date Comments Pre Procedure Call 03/01/2024 DAPT hold for EGD and colo? Encounter Details Date Type Department Care Team (Late st Contact Info) Description 03/01/2024 Telephone Cardiology at [address] [phone] Cynthia Monsalve RN Pre Procedure Call (DAPT hold for EGD and colo?) Social History Tobacco Use Types Packs/Day Years Used Date Smoking Tobacco: Never Smokeless Tobacco: Never Alcohol Use Standard Drinks/Week Comments No 0 (1 standard drink = 0.6 oz pur e alcohol) none [facility] Inpatient Questions Answer Date Recorded [...] safe. Jay Message above left with Yenifer (rehabilitation teacher), who would be leaving this note in patient's chart for providers to schedule patient. No further questions or needs at this time. This nurse stated, note will be placed regarding this call in our chart for patient. Kezia Whitney RN, BSN Ambulatory Cardiology Clinic, [facility] [phone] * Telephone Encounter - Cynthia Monsalve RN - 03/01/2024 2:09 PM EDT Nurse Veronica from [facility] called, requesting a hold on ASA and/or Plavix for the patient's anticipated EGD and colonoscopy. -Cynthia Monsalve RN documented in this encounter Plan of Treatment Upcoming Encounters Date Type Department Care Team (Late st Contact Info) Description 05/12/2024 9:00 AM EDT Appointment [place] [address] 05/12/2024 10:00 AM EDT Office Visit [place]ematology [place] [address] Markel Borjas MD [facility] [address] [place] [address] 03/01/2025 4:15 PM EDT Office Visit Dermatology at [place] [address] [place] [address] Marek Bonilla MD [address], [place] [address] documented as of this encounter Visit Diagnoses Not on filedocumented in this encounter Care Teams Power Technician Relationship Specialty Start Date End Date Magdalena Acosta MD [address] [place] [address] PCP - General Family Medicine 02/05/23 documented as of this encounter
--- OUTSIDE RECORDS SUMMARY | 2024-04-27 15:00 | XMS_ITS | Encounter Summary ---
Author Organization [facility] [place] [address] Care Team Providers Care International Student Advisor Name Role Phone Magdalena Acosta MD Primary Care Provider [phone] Reason for Referral * Diagnostic Test (Routine) - Closed Specialty Diagnoses / Procedures Referred By Contac t Referred To Contact Cardiology Diagnoses S/P TAVR (transcatheter aortic valve replacement) Procedures Echocardiogram Transthoracic Vinod Juárez PA [facility] [place] [address] [facility] [place] [address] Referral ID Status Reason Start Date Expiration Date V isits Requested Visits Authorized [id number] Closed Specialty Service Requested 05/22/2023 05/21/2024 1 1 Reason for Visit * Diagnostic Test (Routine) - Closed Specialty Diagnoses / Procedures Referred By Contac t Referred To Contact Cardiology Diagnoses S/P TAVR (transcatheter aortic valve replacement) Procedures Echocardiogram Transthoracic Vinod Juárez PA [facility] [place] [address] [facility] [place] [address] Referral ID Status Reason Start Date Expiration Date V isits Requested Visits Authorized [id number] Closed Specialty Service Requested 05/22/2023 05/21/2024 1 1 Encounter Details Date Type Department Care Team (Latest Contact Info) Description 07/08/2023 10:19 AM EST - 07/08/2023 11:59 PM EST Hospital Encounter Non-[place] [address] Alirio Esparza MD S/P TAVR (transcatheter aortic [...] AM EDT Appointment Hematology [place] [address] 05/12/2024 10:00 AM EDT Office Visit Hematology [place] [address] Markel Borjas MD [facility] [address] [place] [address] 03/01/2025 4:15 PM EDT Office Visit Dermatology at [address] [place] [address] Marek Bonilla MD [address] [facility], [place] [address] documented as of this encounter Procedures Procedure [...] EST Narrative 07/08/2023 12:26 PM EST [address] [place] [address] ? Echocardiogram Report Name: ONESIMO THACKER ?Study Date: 07/08/2023 10:31 AMBP: 118/60 mmHg ? Patient Location: : 1955 ? Height: 155 cm ? Account: [id number] Age: 67 yrs ? Weight: 74 kg Gender: Female ?BSA: 1.7 m2 Ordering Physician: ALIRIO ESPARZA Referring Physician: VINOD JUÁREZ Performed By: Felicia Norris RDCS Reason For Study: S/P TAVR Exam Location: [facility]. Interpretation Summary Left ventricular systolic [...] no significant change (post-procedure). Procedure Limited - 42032. Doppler - 51113. Color Doppler - 77507. Satisfactory quality. This study is limited because [...] Note Lee Kincaid MD - 07/08/2023 [address] [place] [address] Echocardiogram Report Name: ANDREWONESIMO Study Date: 310:31 AMBP: 118/60 mmHg Patient Location: : 1955 Height: 155 cm Account: [id number] Age: 67 yrs Weight: 74 kg Gender: Female BSA: 1.7 m2 Ordering Physician: ALIRIO ESPARZA Referring Physician: VINOD JUÁREZ Performed By: Felicia Norris RDCS Reason For Study: S/P TAVR Exam Location: [facility]. Interpretation Summary Left ventricular systolic [...] is nosignificant change (post-procedure). Procedure Limited - 05854. Doppler - 27448. Color Doppler - 41018. Satisfactoryquality. This study is limited because of [...] replacement) documented in this encounter Care Teams International Student Advisor Relationship Specialty Start Date End Date Magdalena Acosta MD [address] [place] [address] PCP - General Family Medicine 02/05/23 documented as of this encounter
--- OUTSIDE RECORDS SUMMARY | 2024-04-27 15:00 | XMS_ITS | Encounter Summary ---
Author Organization [facility] Address [facility] [place] [address] Care Team Providers Care Software Development Advisor Name Role Phone Magdalena Acosta MD Primary Care Provider [phone] Encounter Details Date Type Department Care Team (Late st Contact Info) Description 07/29/2023 11:00 AM EST Office [place] [address] Magdalena Peralta MD [facility] [place] [address] Mixed connective tissue disease Social History Tobacco [...] 1:5120 speckled; VIC negative; Myositis panel with HEADER SET UP OPERATOR ab 149.1 (positive); Anti U1RNP IgG [...] 05/18/2016 Influenza Vaccine, Quadrivalent, Adjuvanted 05/22/2023 Assessment/Plan: Cehryl Thacker is a 67 year old female [...] Viramontes. Magdalena Peralta MD Rheumatology Fellow Pager: [phone] * Kia Viramontes DO - 07/29/2023 11:00 AM EST ATTENDING ADDENDUM The patient's history was reviewed, and I interviewed and examined the patient with Dr. Peralta I agree with her summary, findings, and plan. documented in this encounter Plan of Treatment Upcoming Encounters Date Type Department Care Team (Late st Contact Info) Description 05/12/2024 9:00 AM EDT Appointment Hematology [place] [address] 05/12/2024 10:00 AM EDT Office Visit Hematology [place] [address] Markel Borjas MD [facility] [address] H[place] [address] 03/01/2025 4:15 PM EDT Office Visit Dermatology at [place] [address] [facility] [place] [address] Marek Bonilla MD [address], [place] [address] documented as of this encounter Results * [...] PFT FEV1/FVC Pre-BD Z-Score 0 COMPAS PFT PXO56-06 Actual Pre-BD 2.41 % COMPAS PFT TTM79-24 Predicted 1.8 % COMPAS PFT SHH15-65 Pre-BD % of Predicted 134 % COMPAS PFT ZMR29-11 Pre-BD Z-Score 0.81 COMPAS PFT DLCO Hb [...] documented in this encounter Care Teams Software Development Advisor Relationship Specialty Start Date End Date Magdalena Acosta MD [address] [place] [address] PCP - General Family Medicine 02/05/23 documented as of this encounter
--- OUTSIDE RECORDS SUMMARY | 2024-04-27 15:00 | XMS_ITS | Encounter Summary ---
[place] [address] Care Team Providers Care Offset Second Press Operator Name Role Phone Magdalena Acosta MD Primary Care Provider [phone] Reason for Visit * Reason Comments Annual Exam Encounter Details Date Type Department Care Team (Late st Contact Info) Description 02/22/2024 4:15 PM EDT Office Visit Dermatology at [address] [phone] Marek Bonilla MD [address] [facility] [facility] A DERMATOLOGY [place], [place] [address] Seborrheic keratosis; Rosacea; Nevus Social History Tobacco [...] cutaneous and ocular 3. Previously told by corporate law assistant that she had corneal tears from [...] AM EDT Appointment H[place]ology [place] [address] 05/12/2024 10:00 AM EDT Office Visit [place] [address] Markel Borjas MD [facility] [address] [place] [address] 03/01/2025 4:15 PM EDT Office Visit Dermatology at [place] [address] [facility] [place] [address] Marek Bonilla MD [address] [facility], [place] [address] documented as of this encounter Visit Diagnoses Diagnosis Seborrheic keratosis Other seborrheic keratosis Rosacea Nevus Benign neoplasm of skin, site unspecified documented in this encounter Care Teams Offset Second Press Operator Relationship Specialty Start Date End Date Magdalena Acosta MD [address] [place] [address] PCP - General Family Medicine 02/05/23 documented as of this encounter
--- OUTSIDE RECORDS SUMMARY | 2024-04-27 15:00 | XMS_ITS | Encounter Summary ---
Author Organization [facility] [place] [address] Care Team Providers Care Rug Repairer Name Role Phone Magdalena Acosta MD Primary Care Provider [phone] Encounter Details Date Type Department Care Team (Late st Contact Info) Description 05/27/2023 Refill Cardiology at [address] [phone] Vero Marrero, RN Social History Tobacco Use [...] EDT TC to Nurse Sosa at [facility] to relay response from Jay Maza copied below. Nurse Sosa states they will send a new prescription to patient's preferred pharmacy and call the patient with the medication information. No print prescription sent to update med list. May 27, 2023 Jay Maaz PA to Nv 05/27/23 2:44 PM OK to change ticagrelor to Clopidogrel. Now, she should be taking ticagrelor 90mg BID. When she switches, she can take ticagrelor, then the next morning, stop ticagrelor, instead take clopidogrel 300mg once, then after that 75mg once daily. Jay Marrero nurse practitioner manager Clinic at [facility] [address] * Telephone Encounter - Vero Marrero RN - 05/27/2023 1:46 PM EDT VM received from triage nurse Sosa at [facility] stating patient was seen today by [...] Vero Marrero RN Cardiology Clinic at [facility] [address] documented in this encounter Plan of Treatment Upcoming Encounters Date Type Department Care Team (Late st Contact Info) Description 05/12/2024 9:00 AM EDT Appointment Hematology [place] [address] 05/12/2024 10:00 AM EDT Office Visit Hematology [place] [address] Markel Borjas MD [facility] [place] [address] 03/01/2025 4:15 PM EDT Office Visit Dermatology at [address] [address] Marek Bonilla MD [address], [place] [address] documented as of this encounter Visit Diagnoses Diagnosis Aortic valve stenosis, etiology of cardiac valve disease unspecified documented in this encounter Care Teams Rug Repairer Relationship Specialty Start Date End Date Magdalena Acosta MD [address] [place] [address] PCP - General Family Medicine 02/05/23 documented as of this encounter
--- OUTSIDE RECORDS SUMMARY | 2024-04-27 15:00 | XMS_ITS | Encounter Summary ---
Author Organization [facility] [place] [address] Care Team Providers Care Career Portals Teacher Name Role Phone Magdalena Acosta MD Primary Care Provider [phone] Encounter Details Date Type Department Care Team [...] AM EDT Appointment Hematology [place] [address] 05/12/2024 10:00 AM EDT Office Visit [place]ematology [place] [address] Markel Borjas MD [facility] [address] [place] [address] 03/01/2025 4:15 PM EDT Office Visit Dermatology at [employer] [address] [place] [address] Marek Bonilla MD [address], [place] [address] documented as of this encounter Visit Diagnoses Not on filedocumented in this encounter Care Teams Career Portals Teacher Relationship Specialty Start Date End Date Magdalena Acosta MD [address] [place] [address] PCP - General Family Medicine 02/05/23 documented as of this encounter
--- OUTSIDE RECORDS SUMMARY | 2024-04-27 15:00 | XMS_ITS | Encounter Summary ---
Author Organization [facility] [place] [address] Care Team Providers Care Principal Data Architect Name Role Phone Magdalena Acosta MD Primary Care Provider [phone] Reason for Visit * Reason Comments Aortic Stenosis Coronary Artery Disease Hypertension Encounter Details Date Type Department Care Team (Latest Contact Info) Description 11/16/2023 11:40 AM EDT TH Visit (TeleHealth) Cardiology at [address] [address] Jay Maza PA [facility] [place] [address] Aortic valve stenosis, etiology of cardiac valve disease unspecified; Coronary artery disease, unspecified vessel or lesion type, unspecified whether angina present, unspecified whether grayling or transplanted heart Social History Tobacco Use Types Packs/Day Years Used Date Smoking Tobacco: Never Smokeless Tobacco: Never Alcohol Use Standard Drinks/Week Comments No 0 (1 standard drink = 0.6 oz pur e alcohol) none [facility] Inpatient Questions Answer Date Recorded Does [...] from the original note were not included. [facility] Interventional Cardiology CARDIOLOGY TELE VISIT NOTE 11/16/23 Patient: Purnima Thacker Prior to the initiation of our discussion, the risks and benefits of tele health visits were discussed, and the patient consented verbally to this being a virtual telehealth visit in lieu of an in person office visit. CARDIOLOGISTS: Antelmo Sharma MD ([facility]) Maria Luz Mejia MD ([facility] - [facility]) Problem [...] I35.0 Mild coronary artery disease by [facility] 11/09/2022 I25.10 Heart failure with reduced [...] notable for coronary artery protection given low [id number]-um-[id number] distance. There was no obstruction post Valve [...] leads Confirmed by MD Harshil, Haris Bell ([id number]) on 05/10/2023 8:11:46 AM Cardiac Cath 11/09/2022 [...] in one year. EKATERINA Thompson Time spent: [id number] 0-5min 0107QOP0 6-10min 3391LSV8 11-15min x 5492HIK4 16-20min 2567BIP5 21-30min 3886CUX5 31-40min 0619CPU6 40+ min Jay Maza PA-C Interventional Cardiology [facility] Pager [phone] documented in this encounter Plan of Treatment Upcoming Encounters Date Type Department Care Team (Late st Contact Info) Description 05/12/2024 9:00 AM EDT Appointment [place] [address] 05/12/2024 10:00 AM EDT Office Visit [place] [address] Markel Borjas MD [facility] [address] HEMATOLOGY [place] [address] 03/01/2025 4:15 PM EDT Office Visit Dermatology at [place] [address] [place] [address] Marek Bonilla MD [address], [place] [address] documented as of this encounter Visit Diagnoses Diagnosis Aortic valve stenosis, etiology of cardiac valve disease unspecified Coronary artery disease, unspecified vessel or lesion type, unspecified whether angina present, unspecified whether grayling or transplanted heart documented in this encounter Care Teams Principal Data Architect Relationship Specialty Start Date End Date Magdalena Acosta MD [address] [place] [address] PCP - General Family Medicine 02/05/23 documented as of this encounter
--- OUTSIDE RECORDS SUMMARY | 2024-04-27 15:00 | XMS_ITS | Encounter Summary ---
Author Organization [facility] [place] [address] Care Team Providers Care Tobacco Stripper Name Role Phone Magdalena Acosta MD Primary [...] AM EDT Appointment Hematology [place] [address] 05/12/2024 10:00 AM EDT Office Visit [place]ematology [place] [address] Markel Borjas MD [facility] [address] HEMATOLOGY [place] [address] 03/01/2025 4:15 PM EDT Office Visit Dermatology at [place] [address] [place] [address] Marek Bonilla MD [address], [place] [address] documented as of this encounter Visit Diagnoses Not on filedocumented in this encounter Care Teams Tobacco Stripper Relationship Specialty Start Date End Date Magdalena Acosta MD [address] [place] [address] PCP - General Family Medicine 02/05/23 documented as of this encounter
--- OUTSIDE RECORDS SUMMARY | 2024-04-27 15:00 | XMS_ITS | Encounter Summary ---
Author Organization [facility] [place] [address] Care Team Providers Care Director Voice Name Role Phone Magdalena Acosta MD Primary Care Provider [phone] Encounter Details Date Type Department Care Team (Late st Contact Info) Description 12/02/2023 11:15 AM EDT Office [place] [address] Magdalena Peralta MD [facility] [place] [address] Mixed connective tissue disease Social History Tobacco [...] 1:5120 speckled; VIC negative; Myositis panel with CALENDER ROLL PRESS OPERATOR ab 149.1 (positive); Anti U1RNP IgG [...] list of questions that she sent via [facility] ahead of her visit, which we [...] exposure. She has an appointment with her Parking Meter Collector scheduled in January. (Dr [place]illa in [place]) ROS (positives in bold): Gen: no fevers, [...] but I encouraged her to contact her Parking Meter Collector to see if she could have her [...] Dr. Tanisha Peralta MD Rheumatology Fellow Pager: [phone] * Federico Yee MD - 12/02/2023 11:15 [...] AM EDT Appointment Hematology [place] [address] 05/12/2024 10:00 AM EDT Office Visit Hematology [place] [address] Markel Borjas MD [facility] [address] [place] [address] 03/01/2025 4:15 PM EDT Office Visit Dermatology at [address] [phone] Marek Bonilla MD [address] [place] [address], [facility] [place] [address] Scheduled Orders Name Type Priority Associated Diagnoses Orde r Schedule EKG 12 Lead ECG Routine Mixed connective tissue disease Expected: 12/02/2023, Expires: 06/03/2024 documented as of this encounter Visit Diagnoses Diagnosis Mixed connective tissue disease Other specified diffuse disease of connective tissue documented in this encounter Care Teams Director Voice Relationship Specialty Start Date End Date Magdalena Acosta MD [address] [place] [address] PCP - General Family Medicine 02/05/23 documented as of this encounter
--- OUTSIDE RECORDS SUMMARY | 2024-04-27 15:00 | XMS_ITS | Clinical Summary ---
Author Organization [facility] Address [facility] [place] [address] Care Team Providers Care Inspector Set Up And Lay Out Name Role Phone Magdalena Acosta MD Primary Care Provider [phone] Allergies No known active allergies Medications Medication [...] disease by [facility] 11/09/2022 Heart failure with reduced e jection [...] Description 04/11/2024 Transcribe Orders eDH Incoming Referrals [phone] Consuelo Guerrero, DO Anemia, unspecified type 03/01/2024 Telephone Cardiology at [address] [address] Cynthia Monsalve RN Pre Procedure Call (DAPT hold for EGD and colo?) 02/22/2024 4:15 PM EDT Office Visit Dermatology at [address] [place] [address] Marek Bonilla MD Seborrheic keratosis; Rosacea; Nevus [...] AM EDT Appointment Hematology [place] [address] 05/12/2024 10:00 AM EDT Office Visit Hematology [place] [address] Markel Borjas MD [facility] [address] HEMATOLOGY [place] [address] 03/01/2025 4:15 PM EDT Office Visit Dermatology at [place] [address] [place] [address] Marek Bonilla MD [address] [place] [address] Health Maintenance Due Date Last [...] 06/05/2036 06/05/2021 Medical Devices Implanted Type Area Patient Care Specialist Device Identifier Shelf Expiration Date Model / Serial / Lot Valve,Aor,Pericar d,Magna,25mm ([id number]) - [id number] Implanted:Qty: 1 on 09/21/2016 by Alirio Esparza MD at COUNT INCLUDES THE [facility] IMPLANTS N/A: Heart DO NOT USE [employer] - [id number] 06/02/2020 [id number] / / [id number] Cable,Blnt,Ss,38i n ([id number]) - [id number] Implanted:Qty: 4 on 09/21/2016 by Alirio Esparza MD at COUNT INCLUDES THE [facility] IMPLANTS N/A: Chest [employer] - [id number] 04/29/2021 [id number] / / [id number] Patch,Cav,Pericar d,2x5cm ([id number]) (Autoreq) - [id number] Implanted:Qty: 1 on 09/21/2016 by Alirio Esparza MD at COUNT INCLUDES THE [facility] IMPLANTS N/A: Heart DO NOT USE [employer] - [id number] 04/21/2018 [id number] / / [id number] Tavr-05/12/2023 Implanted:Qty: 1 on 05/12/2023 by Antelmo Sharma MD Other Heart [employer] - JAIME LI [id number] / [id number] / Description:JAIME [employer] NCES ABBY 3 ULTRA [...] Glucose 93 65 - 199 mg/dL [facility] Comment:Diabetes: >=200 mg/d L plus symptoms Blood Urea Nitrogen 19(H) 8 - 18 mg/dL [facility] Creatinine 0.81 0.70 - 1.20 mg/dL [facility] Sodium 142 135 - 145 mmol/L [facility] Potassium 3.8 3.5 - 5.0 mmol/L [facility] Comment: Please note: ??Patients with WBC >100,000 may have falsely elevated Potassium levels. ??For accurate Potassium quantification in these patients send serum separator tube (gold top) for subsequent determinations. ??Contact the Clinical Chemistry Laboratory if there are any questions. Chloride 104 98 - 107 mmol/L [facility] Carbon Dioxide 26 22 - 31 mmol/L [facility] Anion Gap 12 5 - 15 mmol/L [facility] Calcium 10.2 8.5 - 10.5 mg/dL [facility] Protein, Total 7.4 6.1 - 8.0 g/dL [facility] Albumin 4.1 3.2 - 5.2 g/dL [facility] Aspartate Aminotransferase 24 0 - 30 unit/L [facility] Alanine Aminotransferase 12 0 - 30 unit/L [facility] Alkaline Phosphatase 93 35 - 105 unit/L [facility] Bilirubin, Total 0.3 0.2 - 1.3 mg/dL [facility] Est Glomerular Filtration Rate 80 >=60 mL/min/1. 73 m?? [facility] Comment: This patient's estimated GFR was [...] Alirio Esparza MD CHEMISTRY ORDERABLE S [facility] [place] [address] * DXA Central Spine, Hip, and/or Whole Body (Generic) (06/05/2021 11:58 AM EDT) PT CLASS O RAD ADMITDTTM RAD PT RAD INFO [id number]^E VERETT^DEBORAH ^E RAD EXAM DESC XDXAC^DEXA SCAN [...] who have questions please contact the health veterinarian laboratory animal care that requested your imaging first. ? [...] patients who have questions please contactthe health veterinarian laboratory animal care that requested your imaging first. Deborah Quiroga TRANSPORTATION SALES CONSULTANT IMG DEXA ORDERABLES * Mammo Screening Cad Bilateral (06/05/2021 11:42 AM EDT) PT CLASS O RAD ADMITDTTM RAD PT RAD INFO [id number]^EV ERETT^DEBORAH^E RAD EXAM DESC MADDSC^SCREEN MAMMO BL [...] who have questions please contact the health veterinarian laboratory animal care that requested your imaging first. ? [...] patients who have questions please contactthe health veterinarian laboratory animal care that requested your imaging first. Deborah [...] capacity to make decision: Yes Care Teams Inspector Set Up And Lay Out Relationship Specialty Start Date End Date Magdalena Acosta MD [address] [place] [address] PCP - General Family Medicine 02/05/23
--- OUTSIDE RECORDS SUMMARY | 2024-04-27 15:00 | XMS_ITS | Encounter Summary ---
[facility] [place] [address] Care Team Providers Care It Application Administrator Name Role Phone Magdalena Acosta MD Primary Care Provider [phone] Encounter Details Date Type Department Care Team [...] AM EDT Appointment Hematology [place] [address] 05/12/2024 10:00 AM EDT Office Visit Hematology [place] [address] Markel Borjas MD [facility] [address] [place] [address] 03/01/2025 4:15 PM EDT Office Visit Dermatology at [place] [address] [place] [address] Marek Bonilla MD [address], [address] [place] [address] documented as of this encounter Visit Diagnoses Not on filedocumented in this encounter Care Teams It Application Administrator Relationship Specialty Start Date End Date Magdalena Acosta MD [address] [place] [address] PCP - General Family Medicine 02/05/23 documented as of this encounter
--- OUTSIDE RECORDS SUMMARY | 2024-04-27 15:00 | XMS_ITS | Encounter Summary ---
Author Organization [facility] [place] [address] Care Team Providers Care Commercial Lender Name Role Phone Magdalena Acsota MD Primary Care Provider [phone] Encounter Details Date Type Department Care Team [...] AM EDT Appointment Hematology [place] [address] 05/12/2024 10:00 AM EDT Office Visit Hematology [place] [address] Markel Borjas MD [facility] [address] HEMATOLOGY [place] [address] 03/01/2025 4:15 PM EDT Office Visit Dermatology at [place] [address] [place] [address] Marek Bonilla MD [address], [place] [address] documented as of this encounter Visit Diagnoses Not on filedocumented in this encounter Care Teams Commercial Lender Relationship Specialty Start Date End Date Magdalena Acosta MD [address] [place] [address] PCP - General Family Medicine 02/05/23 documented as of this encounter
--- OUTSIDE RECORDS SUMMARY | 2024-04-27 15:00 | XMS_ITS | Encounter Summary ---
[place] [address] Care Team Providers Care Gravel Inspector Name Role Phone Magdalena Acosta MD Primary Care Provider [phone] Reason for Referral * Consultation (Routine) - Authorized Specialty Diagnoses / Procedures Referred By Contac t Referred To Contact Hematology and Oncology Diagnoses Anemia, unspecified type Consuelo Guerrero DO [address] [place] [address] [address] [place] [address] [facility] [address] [place] [address] Referral ID Status Reason Start Date Expiration Date Visits Requested Visits Authorized [id number] Authorized Consult, Test & Treat 04/11/2024 04/11/2025 1 1 Encounter Details Date Type Department Care Team (Late st Contact Info) Description 04/11/2024 Transcribe Orders eDH Incoming Referrals [phone] Consuelo Guerreor DO [address] [place] [address] [address] [place] [address] Anemia, unspecified type Social History [...] AM EDT Appointment Hematology [place] [address] 05/12/2024 10:00 AM EDT Office Visit Hematology [place] [address] Markel Borjas MD [facility] [address] HEMATOLOGY [place] [address] 03/01/2025 4:15 PM EDT Office Visit Dermatology at [address] [address] Marek Bonilla MD [address] [facility] [facility] [facility] [place] [address] Scheduled Referrals Name Type Priority Associated Diagnoses Orde r Schedule Referral to Hematology and Oncology Outpatient Referral Routine Anemia, unspecified type Ordered: 04/11/2024 documented as of this encounter Visit Diagnoses Diagnosis Anemia, unspecified type documented in this encounter Care Teams Gravel Inspector Relationship Specialty Start Date End Date Magdalena Acosta MD [address] [place] [address] PCP - General Family Medicine 02/05/23 documented as of this encounter
--- OUTSIDE RECORDS SUMMARY | 2024-04-27 15:00 | XMS_ITS | Encounter Summary ---
Author Organization [facility] [place] [address] Care Team Providers Care Machinist Job Setter Name Role Phone Magdalena Acosta MD Primary Care Provider [phone] Encounter Details Date Type Department Care Team [...] AM EDT Appointment Hematology [place] [address] 05/12/2024 10:00 AM EDT Office Visit Hematology [place] [address] Markel Borjas MD [facility] [address] HEMATOLOGY [place] [address] 03/01/2025 4:15 PM EDT Office Visit Dermatology at [place] [address] [place] [address] Marek Bonilla MD [address] [place] [address] documented as of this encounter Visit Diagnoses Not on filedocumented in this encounter Care Teams Machinist Job Setter Relationship Specialty Start Date End Date Magdalena Acosta MD [address] [place] [address] PCP - General Family Medicine 02/05/23 documented as of this encounter
--- OUTSIDE RECORDS SUMMARY | 2024-04-27 15:00 | XMS_ITS | Encounter Summary ---
[place] [address] Care Team Providers Care Medical Center Director Name Role Phone Magdalena Acosta MD Primary Care Provider [phone] Encounter Details Date Type Department Care Team (Latest Contact Info) Description 10/05/2023 10:52 AM EST - 10/05/2023 11:59 PM [facility] Hospital [place] [address] Mixed connective tissue disease Discharge Disposition: Home Social History Tobacco Use Types Packs/Day Years Used Date Smoking Tobacco: Never Smokeless Tobacco: Never Alcohol Use Standard Drinks/Week Comments No 0 (1 standard drink = 0.6 oz pur e alcohol) none [facility] Inpatient Questions Answer Date Recorded [...] AM EDT Appointment Hematology [place] [address] 05/12/2024 10:00 AM EDT Office Visit Hematology [place] [address] Markel Borjas MD [facility] [place] [address] 03/01/2025 4:15 PM EDT Office Visit Dermatology at [place] [address] [place] [address] Marek Bonilla MD [address] [place] [address] documented as of this encounter Procedures Procedure [...] PFT FEV1/FVC Pre-BD Z-Score 0 COMPAS PFT HNS11-78 Actual Pre-BD 2.41 % COMPAS PFT QOO69-67 Predicted 1.8 % COMPAS PFT QMC31-86 Pre-BD % of Predicted 134 % COMPAS PFT GPX21-68 Pre-BD Z-Score 0.81 COMPAS PFT DLCO Hb [...] tissue documented in this encounter Care Teams Medical Center Director Relationship Specialty Start Date End Date Magdalena Acosta MD [address] [place] [address] PCP - General Family Medicine 02/05/23 documented as of this encounter
--- OUTSIDE RECORDS SUMMARY | 2024-04-27 15:01 | XMS_ITS | Encounter Summary ---
Author Organization [facility] Address [facility] [place] [address] Care Team Providers Care Product Inspection Supervisor Name Role Phone Magdalena Acosta MD Primary Care Provider Reason for Referral * Diagnostic Test (Routine) - Closed Specialty Diagnoses / Procedures Referred By Contac t Referred To Contact Cardiology Diagnoses S/P TAVR (transcatheter aortic valve replacement) Procedures Echocardiogram Transthoracic Vinod Juárez PA [facility] [place] [address] [facility] [place] [address] Referral ID Status Reason Start Date Expiration Date V isits Requested Visits Authorized [id number] Closed Specialty Service Requested 05/22/2023 05/21/2024 1 1 * Home Health Care (Routine) - Closed Specialty Diagnoses / Procedures Referred By Contac t Referred To Contact Diagnoses S/P TAVR (transcatheter aortic valve replacement) Alirio Hudson MD [facility] CARDIOTHORACIC SURGERY [address] [facility] & [address] [place] [address] Referral ID Status Reason Start Date Expiration Date V isits Requested Visits Authorized [id number] Closed Consult, Test & Treat 05/22/2023 11/18/2023 999 999 * Consultation (Routine) - Closed Specialty Diagnoses / Procedures Referred By Crispin maxwell Referred To Contact Cardiology Diagnoses S/P TAVR (transcatheter aortic valve replacement) Alirio Hudson MD [facility] [place] [address] Cardiac Rehab, [address] [place] [address] Referral ID Status Reason Start Date Expiration Date V isits Requested Visits Authorized [id number] Closed Consult, Test & Treat 05/22/2023 11/18/2023 36 36 * Diagnostic Test (Routine) - Closed Specialty Diagnoses / Procedures Referred By Crispin maxwell Referred To Contact Cardiology Diagnoses Aortic valve stenosis, etiology of cardiac valve disease unspecified Procedures Echocardiogram Transthoracic Transesophageal Echocardiogram (YUSRA) Radha Hollins MD [facility] [place] [address] [facility] [place] [address] Referral ID Status Reason Start Date Expiration Date V isits Requested Visits Authorized [id number] Closed Specialty Service Requested 05/11/2023 05/10/2024 1 1 Reason for Visit * Auth/Cert (Routine) Specialty Diagnoses / Procedures Referred By Crispin maxwell Referred To Contact Diagnoses Symptomatic severe aortic stenosis with low ejection fraction NSTEMI, CHF Enrique Chua MD [facility] [place] [address] [facility] Referral ID Status Reason Start Date Expiration Date Visits Re quested Visits Authorized [id number] 1 1 Encounter Details Date Type Department Care Team (Latest Contact Info) Description 05/08/2023 9:14 AM EDT - 05/22/2023 10:46 AM EDT Hospital Encounter Heart and Vascular Unit Level 4 [place] [address] Enrique Chua MD [facility] [place] [address] Juan Luis Gonzalez MD [facility] [place] [address] Radha Hollins MD [facility] [place] [address] Alirio Hudson MD S/P TAVR (transcatheter aortic valve replacement) (Primary Dx); Aortic valve stenosis, etiology of cardiac valve disease unspecified; Symptomatic severe aortic stenosis with low ejection fraction; Heart failure with reduced ejection fraction due to heart valve disease; Mild coronary artery disease by [facility] 11/09/2022; Mixed connective tissue disease; Neck [...] Patient Age: 67 y.o. Birthdate: 1955 Language: Estonian Race: White Ethnicity: Not nor Admit Date: 05/08/2023 Discharge Date: 05/22/2023 Attending Physician: Alirio Hudson MD Follow-up Recommendations for Providers: Please continue routine management of cardiovascular risk factors including blood pressure, lipids,glucose, etc. Please note any medication changes. Patient to follow up with PCP, Magdalena Acosta MD, or Primary Chief Of Pediatric Urology, Avis Mejia MD, in ~ 7-10 days. Patient to follow up with Edge Runner, Dr. Antelmo Sharma, in 2 weeks with an EKG, Echo, CBC, and CMP. Patient to follow up with Nephrology, their office to arrange. Bdks-Pwlqhk-mj interval: After initial 30 day follow-up appointment , all TAVR patients will follow-up again in one year with an echo. Inpatient Provider Contact Information: 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 Secondary Diagnoses: Active Hospital Problems Diagnosis S/P TAVR (transcatheter aortic valve replacement) Cardiogenic shock Symptomatic severe aortic stenosis with low ejection fraction Mild coronary artery disease by [facility] 11/09/2022 Heart failure with reduced ejection [...] Right 05/18/2023 Laure Ricks PA [facility] INTERVENTIONL RAD PRG CATH PLMT LEFT HEART CATH & ARTS W/INJ & ANGIO IMG S&I N/A 11/09/2022 CORONARY ANGIOGRAPHY; W [facility],POSSIBLE PCI (WRVU 5.6) performed by Mario Alberto Escobedo MD at [facility] CATH LABS PRG COMBINED RIGHT & LEFT HEART CATH W/INJ L VENTRICULOGRAPHY, IMG S&I N/A 05/12/2023 COMBINED RIGHT & LEFT HEART CATH,INC INJ FOR L VENTRICULOGRAPHY (WRVU 5.99) performed by Antelmo Sharma MD at [facility] CATH LABS PRO AORTOPLAS FOR SUPRAVALV STEN N/A 09/21/2016 @AORTOPLASTY FOR SUPRAVALVULAR STENOSIS (WRVU 29.33) performed by Alirio Hudson MD at [facility] MAIN OR PRO REPLACE AORTIC VALVE (TAVR/FEDERICO)PERC FEMORAL ARTERY APPROACH 05/12/2023 @TRANSCATHETER AORTIC VALVE REPLACEMENT (TAVR), PERCUTANEOUS FEMORAL (WRVU 22.47) performed by Alirio Hudson MD at [facility] CATH LABS PRO REPLACEMENT PROSTHETIC AORTIC VALVE OPEN W CARDIOPULMONARY BYPASS HOMOGRF/STENT N/A 09/21/2016 @REPLACE AORTIC VALVE, OPEN, W\CPB, W\PROSTHETIC VALVE (WRVU 41.32) performed by Alirio Hudson MD at [facility] MAIN OR Prior To Admission [...] No Known Allergies History of Presentation: Purnima hTacker is a 67 y.o. female with known [...] Major Procedures/Operations: 05/12/23: Successful right transfemoral TAVR Wrdsn-ft-Tlhtt with a 23 mm Lai 3 THV. Left coronary protection with left main MINNA. Hospital Course: #Severe prosthetic s/p valve in valve TF TAVR #Low coronary heights s/p left main stent for coronary protection #Type 2 NSTEMI, present on arrival, resolved #Acute decompensated HFrEF #Cardiogenic shock #EVANS / Cardiorenal syndrome Purnima Thacker was admitted to [facility] on 05/08/2023 via the Cardiology Service [...] TAVR and she was brought to the matlab developer the following morning where Drs. Alirio Hudson [...] if you have questions. Please call your Edge Runner's office if you have any discharge or drainage from your procedural sites. Your Edge Runner, Dr. Antelmo Sharma and/or the Mapping Supervisor may be reached at . Antibiotic prophylaxis: You will need to take antibiotics prior to many invasive tests and treatments, such as dental cleaning, which should be done every 6 months. Your primary care physician or your dentist can prescribe this medication. Please refer to the card with the [employer] [employer] Guidelines for more information. You have been provided with a copy of this card. Please refer to the [employer] [employer] Guidelines for more information. Good [...] friends, go to a movie, go to buddhism, etc. Heavy activities: No hunting, skiing, jogging, [...] should resume a low fat, low cholesterol, [employer] Diet Driving: No restrictions. Shower/Bath: You may shower daily. No baths, soaking, or swimming for the first week. Wound care: Wash the sites daily with soap and rinse well, pat dry. Assess for any signs of infection such as increased redness, pain, warmth or drainage. Please call your line supervisor's office if you have any discharge or drainage from your procedural sites. If there is a lot of swelling, apply mamta wraps during the day and remove at bedtime. Elevate your legs when you are sitting. Home oxygen therapy: N/A Follow up appointments: Please schedule a follow-up appointment with your PCP, Magdalena Acosta MD, or Primary Chief Of Pediatric Urology in ~ 7-10 days. You have a follow-up appointment with your Edge Runner, Dr. Antelmo Sharma, in 2 weeks with an EKG, Echo, and labs prior to your appointment. You will need follow-up with Nephrology, their office will arrange. Xolf-Weyvcs-bu interval: After initial 30 day follow-up appointment [...] 11:00 AM Magdalena Peralta MD Rheumatology at [facility] Arrive at: [facility] [address] [phone] 02/11/2024 2:00 PM Marek Bonilla MD Dermatology at [place] Arrive at: [facility] [address] [phone] Future Orders Complete By Expires Type and Screen Future Surgery, [facility] SAME DAY PROGRAM ONLY) [[id number] Custom] 05/11/2023 Process Instructions: This test is intended ONLY for patients with upcoming surgery for testing prior to the day of surgery obtained through the same day program (4V or SDP). For ALL OTHER PATIENTS, order a Type and Screen (NUW192) This order includes the physician order for an ABO Recheck if requested by the Blood Bank. Scheduling Instructions: Comments: Questions: Date of surgery: CBC (with Diff) [XLK010 Custom] 06/05/2023 12/05/2023 Process Instructions: INCLUDES: WBC, RBC, Hgb, Hct, Platelets, RBC Indices and Differential Scheduling Instructions: Comments: Questions: Comprehensive metabolic panel (non-fasting) [LAB17 Custom] 06/05/2023 08/20/2023 Process Instructions: INCLUDES: Calcium, T Protein, Albumin, AST, ALT, Alk Phos, T Bili, BUN, Creat, GFR, Glucose, Lytes. Scheduling Instructions: Comments: Questions: Echocardiogram Transthoracic [59350 CPT(R)] 06/05/2023 12/05/2023 Process Instructions: Scheduling Instructions: Questions: Where will study be performed?: [facility] Clinics Does the patient have Congenital Heart Disease?: Does patient require sedation?: GA rationale: EKG 12 Lead [26865 CPT(R)] 06/05/2023 12/05/2023 Process Instructions: Scheduling Instructions: Questions: Which location will this be performed?: [place] Is a rhythm strip needed?: No [facility] Devices [EQ161 Custom] As directed Process Instructions: Scheduling Instructions: Questions: Device Needed: WALKER (E0143) Patient Height (cm): 154.9 cm (5' 0.98) Patient Weight: 75.4 kg (166 lb 3.2 oz) Diagnosis: Unsteady gait when walking Referral to Cardiac Rehab [WSP757 Custom] As directed Process Instructions: If no progress note charted, please enter Clinical details in comments. Scheduling Instructions: Questions: My question or request is: s/p TAVR. Cardiac rehab at [facility]. Referral to Home Health [REF34 Custom] As directed Process Instructions: If no progress note charted, please enter Clinical details in comments. Scheduling Instructions: Comments: DOCUMENTATION FOR VNA SERVICES PATIENT'S LOCATION: Purnima Thacker [address] [place] [phone] (home) Carpet Finishing Supervisor's Name: Self and brother Raymond In discussion with the attending physician, it is certified that this patient is under his/her careand that MD, or an MICA MACHINE OPERATOR, PLUMBING AND HEATING MECHANIC, or PA who is working directly with him/her, had a utly-sh-qxap encounter that meets the physician pwqb-kc-slsx encounter requirements with this patient on 05/22/2023. [...] for managing ADLs. HOME HEALTH CARE AGENCY: [facility]. [address] [place] [address] PHONE: [phone] FAX: [phone] Start of care: Ideally 24-48 hours after [...] Acosta MD [address] / [facility] [address] All VNA agencies which cover the area of patient's residence have been reviewed, either verbally joao writing, and patient has chosen the home health care agency noted. Questions: Disciplines Requested: Physical Therapy Occupational Therapy Discharge References/Attachments None Arrangements for VNA/home care: As above. (delete if no VNA) Signed: EKATERINA NAVARRETE [facility] Section of Cardiac Surgery Date: 05/22/2023 CC: Magdalena Acosta MD [place] Alberto MD [address] [place] [address] documented in this encounter Discharge Instructions * Patient Instructions* Vinod Juárez PA - 05/22/2023 9:32 AM EDT TAVR Discharge Instructions: Call your doctor if: You have a fever of greater than 101 degrees, shaking chills, if you develop redness or drainage from your procedure sites, or if you have questions. Please call your Edge Runner's office if you have any discharge or drainage from your procedural sites. Your Edge Runner, Dr. Antelmo Sharma and/or the Mapping Supervisor may be reached at . Antibiotic prophylaxis: You will need to take antibiotics prior to many invasive tests and treatments, such as dental cleaning, which should be done every 6 months. Your primary care physician or your dentist can prescribe this medication. Please refer to the card with the [employer] Guidelines for more information. You have been provided with a copy of this card. Please refer to the [employer] [employer] Guidelines for more information. Good [...] friends, go to a movie, go to buddhism, etc. Heavy activities: No hunting, skiing, jogging, [...] should resume a low fat, low cholesterol, [employer] Diet Driving: No restrictions. Shower/Bath: You may shower daily. No baths, soaking, or swimming for the first week. Wound care: Wash the sites daily with soap and rinse well, pat dry. Assess for any signs of infection such as increased redness, pain, warmth or drainage. Please call your line supervisor's office if you have any discharge or drainage from your procedural sites. If there is a lot of swelling, apply mamta wraps during the day and remove at bedtime. Elevate your legs when you are sitting. Home oxygen therapy: N/A Follow up appointments: Please schedule a follow-up appointment with your PCP, Magdalena Acosta MD, or Primary Chief Of Pediatric Urology in ~ 7-10 days. You have a follow-up appointment with your Edge Runner, Dr. Antelmo Sharma, in 2 weeks with an EKG, Echo, and labs prior to your appointment. You will need follow-up with Nephrology, their office will arrange. Llek-Euqgec-vw interval: After initial 30 day follow-up appointment [...] ins ( tef) Haven Ba, PT Pager: [phone] Physical Therapy Inpatient Rehabilitation Department * Nico [...] 0600 and on the weekends please page [phone]. * Jory Paniagua - 05/20/2023 3:52 PM [...] vomiting Last Bowel Movement: 05/20/23 Jory Paniagua Fiction And Nonfiction Author * Rashid Tong, OT - 05/20/2023 3:16 [...] Right 05/18/2023 Laure Ricks PA [facility] INTERVENTIONL RAD PRG CATH PLMT LEFT HEART CATH & ARTS W/INJ & ANGIO IMG S&I N/A 11/09/2022 CORONARY ANGIOGRAPHY; W [facility],POSSIBLE PCI (WRVU 5.6) performed by Mario Alberto Escobedo MD at [facility] CATH LABS PRG COMBINED RIGHT & LEFT HEART CATH W/INJ L VENTRICULOGRAPHY, IMG S&I N/A 05/12/2023 COMBINED RIGHT & LEFT HEART CATH,INC INJ FOR L VENTRICULOGRAPHY (WRVU 5.99) performed by Antelmo Sharma MD at [facility] CATH LABS PRO AORTOPLAS FOR SUPRAVALV STEN N/A 09/21/2016 @AORTOPLASTY FOR SUPRAVALVULAR STENOSIS (WRVU 29.33) performed by Alirio Hudson MD at [facility] MAIN OR PRO REPLACE AORTIC VALVE (TAVR/FEDERICO)PERC FEMORAL ARTERY APPROACH 05/12/2023 @TRANSCATHETER AORTIC VALVE REPLACEMENT (TAVR), PERCUTANEOUS FEMORAL (WRVU 22.47) performed by Alirio Hudson MD at [facility] CATH LABS PRO REPLACEMENT PROSTHETIC AORTIC VALVE OPEN W CARDIOPULMONARY BYPASS HOMOGRF/STENT N/A 09/21/2016 @REPLACE AORTIC VALVE, OPEN, W\CPB, W\PROSTHETIC VALVE (WRVU 41.32) performed by Alirio Hudson MD at [facility] MAIN OR Social History: Patient lives alone. Home Setup: Pt lives on one level with tub shower and three steps to enter. 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 [...] Discharge planning. Total Minutes, Occupational Therapy: 28 ([id number]) OT Evaluation Code Rationale: Diagnosis & Pertinent Co-Morbidities affecting Plan of Care: see PMHx Occupational Profile & Client History: Brief Expanded Extensive x Assessment of Occupational Performance: 1-3 performance deficits 3-5 performance deficits x 5 + performance deficits Clinical Decision Making: Low Moderate High x Clinical decision making of moderate complexity using standardized patient assessment instrument and measurable assessment of functional outcome. Pager: [phone] TONG MIKE OT 05/20/2023 Occupational Therapy Rehabilitation [...] 0600 and on the weekends please page [phone]. * Rylie Rodriguez MD - 05/19/2023 3:59 [...] and plan. Cynthia Blackburn MD Nephrology Pager: [phone] * Diana Espino - 05/19/2023 1:49 PM EDT Auto Driver Encounter Note Patient Name: Purnima Thacker : [id number] MR#: [id number] Admit Date: 05/08/2023 9:14 AM Hospital Day [...] as stated. Total Minutes, Physical Therapy: 38 ([phone]) Henrik Dale CANDY Navarrete Pager: [phone] Physical Therapy Inpatient Rehabilitation Department * Nico [...] 0600 and on the weekends please page [phone]. * Laure Ricks PA - 05/19/2023 7:56 [...] Ricks PA-C Interventional Radiology IR Team Pager [phone] * Consuelo Espinoza RN - 05/18/2023 4:13 PM EDT ANGIO NURSING DATABASE Name: Purnima Thacker Date of : 1955 AGE: 67 y.o. Address: [address] [place] [phone] (home) Mobile: No relevant phone numbers on [...] fraction I35.0 Mild coronary artery disease by [facility] 11/09/2022 I25.10 Heart failure with reduced [...] and plan. Cynthia Blackburn MD Nephrology Pager: [phone] * Magdalena Puri, ANURAG - 05/18/2023 10:51 AM EDT Images from the original note were not included. [facility] [address] [place], [place] [address] STRUCTURAL HEART DISEASE CONSULTATION NOTE PRIMARY CARE [...] stenosis. She is now status post TAVR Ixwnx-yy-Drhwe with a 23 mm Lai 3 THV 05/12/[address] Sharma. Preliminary findings: Successful right transfemoral TAVR Aloip-wf-Sawdh with a 23 mm Lai 3 THV. [...] perforation. Interval Events: - 05/12 Transferred to [facility] post- TAVR for pressor/inotropic support [...] ejection fraction Mild coronary artery disease by [facility] 11/09/2022 Heart failure with reduced ejection [...] 10 mg 10 mg Rectal Daily PRN LakewoodMara ernandez APRN melatonin tablet 6 mg 6 [...] stenosis. She is now status post TAVR Appcz-wy-Btjxk with a 23 mm Lai 3 THV [...] Magdalena Puri APRN Structural Heart Team Pager [phone] Team Office Please see addendum by Dr. Sharma for final plan and recommendations Associated attestation - Antelmo Sharma MD - 05/19/2023 10:52 PM EDT I have reviewed Magdalena Puri APRN's above history and I agree with the details as written. The assessment and plan were formulated in discussion with me and I agree with them as documented. Antelmo Sharma MD Pager [phone] * Nico Palacios PA - 05/18/2023 8:13 [...] 0600 and on the weekends please page [phone]. * Loli Hernandez, PT - 05/17/2023 5:27 [...] plan as stated. Time IN / OUT: 2067-4187 Total Minutes, Physical Therapy: 54 Billing Code: te-sx2, te-f, gait LOLI HERNANDEZ PT Pager: [phone] Physical Therapy Inpatient Rehabilitation Department * Cynthia [...] Well controlled. Cynthia Blackburn MD Nephrology Pager: [phone] * Mara Serrano, LEGAL DIRECTOR - 05/17/2023 8:26 AM EDT Cardiac Surgery [...] 0600 and on the weekends please page [phone]. * Guerda Del Valle - 05/16/2023 10:44 AM EDT Nutrition Services Note - Low Nutrition Acuity Purnima Thacker is a 67 y.o. female Reason for intervention: hospital day 9 Nutrition Plan: Continue diet order Encourage good PO Lasix and Zofran noted Added special serve: open containers Monitor weight Patient scheduled for a hospital day 9 nutrition evaluation. Labor Training Manager met with pt at bedside. Pt reports that her appetite and PO has much improved since admission. Denies nausea/vomiting or trouble chewing/swallowing. Labor Training Manager provided snack list but pt not interested in adding snacks at this time. Her only concern was that she is worried that she will eat too much which will cause too much pressure in her stomach. Labor Training Manager assured pt and suggested eating smaller [...] Last Bowel Movement: 05/10/23 Guerda Del Valle Fiction And Nonfiction Author * Vinod Juárez PA - 05/16/2023 10:19 [...] 0600 and on the weekends please page [phone]. * Michael Jeffers MD - 05/16/2023 8:11 AM EDT Images from the original note were not included. Hypertension-Nephrology Inpatient Follow-up Purnima Thacker [id number] 1955 ID: 67 y.o. old female seen [...] IRONSAT 12 (L) 05/16/2023 SFOLATE >20.0 07/03/2022 [id number] 07/03/2022 Lab Results Component Value Date [...] Dr. Ayoub. Please contact me at phone: [phone] or pager: [phone] with any questions. Michael Jeffers MD Nephrology [...] -Nephrology consulted, labs and renal US ordered -[place] removed, ambulated around the unit -bilateral pleural [...] 0600 and on the weekends please page [phone]. * Hortencia Cody MD - 05/15/2023 2:07 [...] not included. Hypertension-Nephrology Inpatient Follow-up Purnima Thacker [id number] 1955 ID: 67 y.o. old female seen [...] HGB 7.8 (L) 05/13/2023 SFOLATE >20.0 07/03/2022 [id number] 07/03/2022 Lab Results Component Value Date [...] Dr. Ayoub. Please contact me at phone: [phone] or pager: [phone] with any questions. Michael Jeffers MD Nephrology [...] outlined inthis evaluation. HAVEN BA, PT Pager: [phone] Physical Therapy Inpatient Rehabilitation Department Time IN / OUT: 4355-6576 Total time: Total Minutes, Physical Therapy: 30 [...] 0600 and on the weekends please page [phone]. * Antelmo Sharma MD - 05/14/2023 7:56 AM EDT Images from the original note were not included. [facility] [place] [address] STRUCTURAL HEART DISEASE CONSULTATION NOTE PRIMARY CARE [...] stenosis. She is now status post TAVR Lkshh-sk-Welgo with a 23 mm Lai 3 THV 05/12/[address] Sharma. Preliminary findings: Successful right transfemoral TAVR Ebriu-jk-Zquxh with a 23 mm Lai 3 THV. [...] ejection fraction Mild coronary artery disease by [facility] 11/09/2022 Heart failure with reduced ejection [...] stenosis. She is now status post TAVR Fdxyl-kq-Seglh with a 23 mm Lai 3 THV [...] Dale ANURAG Kaplan Structural Heart Team Pager [phone] Team Office Please see addendum by Dr. [...] exposure. Nephrology consultationtoday. Antelmo Sharma MD Pager [phone] * Antelmo Cardenas RN - 05/14/2023 5:18 AM EDT Pt AOx4, complaining of mild/moderate generalized pain (states her Meloxicam is effective at home) currently refusing prn oxycodone. NAEON, hemodynamically stable on Milrinone, Maps >65, ST in pmj993's down to NSR with frequent multifocal PVC's. [...] from the original note were not included. [facility] [place] [address] [address] STRUCTURAL HEART DISEASE PROGRESS NOTE PRIMARY CARE [...] stenosis. She is now status post TAVR Pvhpo-cg-Pellw with a 23 mm Lai 3 THV 05/12/[address] Sharma. Preliminary findings: Successful right transfemoral TAVR Mrgdm-ho-Yswki with a 23 mm Lai 3 THV. [...] or perforation. Interval Events: - Transferred to [facility] post- TAVR for pressor/inotropic support [...] ejection fraction Mild coronary artery disease by [facility] 11/09/2022 Heart failure with reduced ejection [...] stenosis. She is now status post TAVR Rtysc-iw-Kjchd with a 23 mm Lai 3 THV [...] Brody Kaplan APRN Structural Heart Team Pager [phone] Team Office Please see addendum by Dr. [...] DAPT moving forward. Antelmo Sharma MD Pager [phone] * Bonita Miguel PA - 05/13/2023 8:30 AM EDT Cardiac Surgery Progress Note Purnima Thacker is a 67 y.o. 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 PMH of s/p tissue AVR (2017), mixed connective tissue disease HTN, HLD, NICOLAS, diverticulosis, rosacea, essential tremor, and depression. 24h Events: From matlab developer for above procedure Extubated at ~1600 to [...] soft b/l, no evidence of hematoma. Tubes/Lines/Drains: [place], RIJ, A-line, Art, PIV Assessment/Plan: 67 y.o. [...] 0600 and on the weekends please page [phone]. * Onelia Schwartz MD - 05/12/2023 1:44 [...] ejection fraction Mild coronary artery disease by [facility] 11/09/2022 Heart failure with reduced ejection [...] FiO2 weaned to 40%. 1105: ABG 7.34/42/73/22 2532-1165: SBT performed and passed on these settings [...] PCP: Magdalena Acosta MD PCP phone number: [phone] Date of Admission: 05/08/2023 ( Hospital Day [...] 1447 PHART -- 7.34* 7.34* -- -- OMI4HAX -- 30* 30* -- -- PO2ART -- 72* 81* -- -- ZEC6PYM -- 16.0* 15.7* -- -- LACTATEVEN 2.4* 2.7* 2.7* 4.8* 2.9* VBG (Venous Blood Gas) Recent Labs 05/12/23 0700 05/12/23 0318 05/12/2310505/11/23193905/11/23 1447 LACTATEVEN 2.4* 2.7* 2.7* 4.8* 2.9* Mixed Venous Sat Recent Labs 05/12/23 0508 05/12/23 0321 05/12/23 0114 05/12/23 0030 [id number] 30.7 32.7 37.3 25.1 Objective: Vitals Last [...] who have questions please contact the health resident care manager rn that requested your imaging first. Cardiac for [...] who have questions please contact the health resident care manager rn that requested your imaging first. Angiogram Abdomen [...] who have questions please contact the health resident care manager rn that requested your imaging first. Chest One [...] who have questions please contact the health resident care manager rn that requested your imaging first. Chest One [...] who have questions please contact the health resident care manager rn that requested your imaging first. Assessment & Plan: Purnima Thackre is a 67 y.o. female with s/p bioprosthetic AVR in 2016 with recent concern for severe restenosis, HTN, HLD, mixed connective tissue disease, currently being managed for symptomaticsevere and acute exacerbation of heart failure. Patient is in cardiogenic shock in the setting of her critical aortic stenosis. Currently being supported with pressors and inotrope. She is planned for a fptzi-te-rsbnr TAVR this morning, which should hopefully improve [...] of Cardiovascular Medicine [facility] Hot Rollertobacco packer [facility] * Noreen Deutsch RN - 05/12/2023 [...] ejection fraction Mild coronary artery disease by [facility] 11/09/2022 Heart failure with reduced ejection [...] 05/11/2023 4:11 PM EDT Reported off to SOLDER MAKING SUPERVISOR and pt transferred over in the bed for higher level of care. * Antelmo Sharma MD - 05/11/2023 9:45 AM EDT Images from the original note were not included. [facility] [place] [id number] STRUCTURAL HEART DISEASE CONSULTATION NOTE PRIMARY CARE [...] who had been referred for possible TAVR lkavp-li-fbigm evaluation. Her primary symptoms are of dyspnea [...] [facility]. 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 [...] ejection fraction Mild coronary artery disease by [facility] 11/09/2022 Heart failure with reduced ejection [...] hour(s)) Lactate, whole blood, send to lab ([facility]) Result Value Ref Range Lactate WB 3.1 (H) 0.5 - 2.2 mmol/L Heparin (unfractionated) Level Result Value Ref Range Heparin UFH Level 0.46 IU/mL Lactate, whole blood, send to lab ([facility]) Result Value Ref Range Lactate WB 1.8 [...] leads Confirmed by MD Harshil, Enrique Bell ([id number]) on 05/10/2023 8:11:46 AM Cardiac Cath 11/09/2022 [...] Brody Kaplan ANURAG Structural Heart Disease Pager [phone] Please see addendum by Dr. Sharma for [...] signed and dated. Antelmo Sharma MD Pager [phone] * Harini Lance MD - 05/11/2023 6:06 AM EDT Images from the original note were not included. Cardiology Progress Note Patient info: Name: Purnima Thacker : 1955 PCP: Magdalena Acosta MD PCP phone number: [phone] Date of Admission: 05/08/2023 ( Hospital Day [...] who have questions please contact the health resident care manager rn that requested your imaging first. : 05/08 [...] 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) Mild coronary artery disease by [facility] 11/09/2022 Hyperlipidemia, unspecified NICOLAS (obstructive sleep [...] PCP: Magdalena Acosta MD PCP phone number: [phone] Date of Admission: 05/08/2023 ( Hospital Day [...] 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) Mild coronary artery disease by [facility] 11/09/2022 Hyperlipidemia, unspecified NICOLAS (obstructive sleep [...] PCP: Magdalena Acosta MD PCP phone number: [phone] Date of Admission: 05/08/2023 ( Hospital Day [...] Gas) No results found for: PHART, PO2ART, EPR9MCX, YXE2HRL Microbiology: Microbiology Results (Last 30 days) No [...] PPx: Diet: Daily Healthy Menu Choices/Cardiac diet ([facility]) Lines: Peripheral IV Line - Single Lumen [...] 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) Mild coronary artery disease by [facility] 11/09/2022 Hyperlipidemia, unspecified NICOLAS (obstructive sleep [...] fraction I35.0 Mild coronary artery disease by [facility] 11/09/2022 I25.10 Heart failure with reduced ejection fraction due to heart valve disease I50.20, I38 Cardiogenic shock R57.0 S/P TAVR (transcatheter aortic valve replacement) Z95.2 Past Medical History: Diagnosis Date Anemia Past Surgical History: Procedure Laterality Date PRG CATH PLMT LEFT HEART CATH & ARTS W/INJ & ANGIO IMG S&I N/A 11/09/2022 CORONARY ANGIOGRAPHY; W [facility],POSSIBLE PCI (WRVU 5.6) performed by Mario Alberto Escobedo MD at [facility] CATH LABS PRO AORTOPLAS FOR SUPRAVALV STEN N/A 09/21/2016 @AORTOPLASTY FOR SUPRAVALVULAR STENOSIS (WRVU 29.33) performed by Alirio Hudson MD at [facility] MAIN OR PRO REPLACEMENT PROSTHETIC AORTIC VALVE OPEN W CARDIOPULMONARY BYPASS HOMOGRF/STENT N/A 09/21/2016 @REPLACE AORTIC VALVE, OPEN, W\CPB, W\PROSTHETIC VALVE (WRVU 41.32) performed by Alirio Hudson MD at [facility] MAIN OR Social History and [...] Verio test strips Strip USE DAILY OneTouch DelFAB BAG Plus Lancet 33 gauge Misc USE DAILY [...] fraction I35.0 Mild coronary artery disease by [facility] 11/09/2022 I25.10 Heart failure with reduced ejection fraction due to heart valve disease I50.20, I38 Cardiogenic shock R57.0 S/P TAVR (transcatheter aortic valve replacement) Z95.2 Past Medical History: Diagnosis Date Anemia Past Surgical History: Procedure Laterality Date PRG CATH PLMT LEFT HEART CATH & ARTS W/INJ & ANGIO IMG S&I N/A 11/09/2022 CORONARY ANGIOGRAPHY; W [facility],POSSIBLE PCI (WRVU 5.6) performed by Mario Alberto Escobedo MD at [facility] CATH LABS PRO AORTOPLAS FOR SUPRAVALV STEN N/A 09/21/2016 @AORTOPLASTY FOR SUPRAVALVULAR STENOSIS (WRVU 29.33) performed by Alirio Hudson MD at [facility] MAIN OR PRO REPLACEMENT PROSTHETIC AORTIC VALVE OPEN W CARDIOPULMONARY BYPASS HOMOGRF/STENT N/A 09/21/2016 @REPLACE AORTIC VALVE, OPEN, W\CPB, W\PROSTHETIC VALVE (WRVU 41.32) performed by Alirio Hudson MD at [facility] MAIN OR Social History and [...] days, which prompted her to present to [facility]. She also endorses some intermittent retrosternal chest pain with exertion.She endorses some dizziness with exertion, but has not gotten faint or passed out. At [facility] she was noted to be afebrile, blood pressure 105/64, HR 120s, satting 95% on 2L NC. Labs from [facility] are below, of [...] 89/59, which prompted the transfer to us. [facility] labs: CBC - Hgb 10.5 CMP - Cr 1.1 BNP 10268 HsTrop 1358 Lactate 1.6 D-dimer 1183 Interval [...] Roman Reid MD Internal Medicine PGY-1 Pager [phone], M1-S1 Service Associated attestation - Juan Luis Gonzalez MD - 05/08/2023 10:00 PM EDT Cardiology Attending Addendum Active Hospital Problems Diagnosis Symptomatic severe aortic stenosis with low ejection fraction Heart failure with reduced ejection fraction due to heart valve disease Mild coronary artery disease by [facility] 11/09/2022 Hyperlipidemia, unspecified History of aortic [...] PCP: Magdalena Acosta MD PCP phone number: [phone] Date of Admission: 05/08/2023 ( Hospital Day 0 days ) Attending:Enrique Chua MD ID: Purnima Thacker is a 67 y.o. female w/ PMH of s/p bioprosthetic AVR in 2016 with recent concern for severe restenosis, HTN, HLD, mixed connective tissue disease, who presents in transfer from [facility] with worsening BONLILA and weight gain concerning for acute congestive [...] four days, which promptedher to present to [facility]. She also endorses some intermittent retrosternal chest pain with exertion. She endorses some dizziness with exertion, but has not gotten faint or passed out. At [facility] she was noted to be afebrile, blood pressure 105/64, HR 120s, satting 95% on 2L NC. Labs from [facility] are below, of [...] 89/59, which prompted the transfer to us. [facility] labs: CBC - Hgb 10.5 CMP - Cr 1.1 BNP 20478 HsTrop 1358 Lactate 1.6 D-dimer 1183 Vasoactive [...] tissue disease, who presents in [facility] BONILLA and [...] #Routine Diet: Daily Healthy Menu Choices/Cardiac diet ([facility]) DVT Prophylaxis: heparin gtt GI Prophylaxis: none [...] remains HD stable, [facility]. -Structural Heart consult; will need [...] to the planned procedure. Hand Hygiene: The cooker sulfite did perform hand hygiene prior to arterial [...] Successful arterial line placement. Crispin Timmons MD Mapping Supervisor Associated attestation - Onelia Schwartz MD [...] (flow was non-pulsatile) and appearance of blood. Stringtown-Marily catheter was placed and locked at 55 [...] information for follow-up [facility], [facility] [address] [place] [address] Cardiac Rehab, [facility] [address] [place] [place] [address] [facility] [address] [place] [address] Transportation: family or friend will provide *Brother [...] Type: *No Product type* / Secondary Insurance: [employer] [place] Prescription Coverage: Yes This plan was formulated with input from patient, family (please identify family/friend involved ifapplicable) and team. All are in agreement with plan. Aliza Martino MSN-Ed, RN ACM mud analysis supervisor Office of Care Management Pager #[phone] * Plan of Care - Favian Mckeon [...] Chaudhary RN - 05/21/2023 4:46 PM EDTSummary: [facility] referral OFFICE OF CARE MANAGEMENT [...] Type: *No Product type* / Secondary Insurance: [employer] [place] Last Physical Therapy Recommendation: (Home with assist [...] describing our affiliations within the [facility] and educate about their right to choose where referrals are sent. provide a list of Home Health Agencies / Durable Medical Equipment vendors which serve their preferred geographic area. They have requested referrals to: [facility] [address] [place] [address] Ortho Care Located @ [place], [place] Note routed to a Grease And Tallow Pumper who will communicate referrals to facilities and provide any required information. Transportation: family or friend will provide *Brother Raymond on Tuesday 05/22 at 1000 Barriers to discharge: Does not have home 22/02 assist available until tomorrow Tuesday 05/22 Plan going forward: Discharge home into the 22/02 home care of brother Raymond with [facility] and [facility] PT/OT services on Tuesday 05/22 [...] Attending: All Staff: Staff Role Juanita Almaguer Buildings And Grounds Superintendent Laure Ricks PA Physician Health And Wellness Sales Consultant Magdalena Rodriguez park police Nurse Consuelo Espinoza, park police Nurse Post-operative diagnosis/Indication: Right pleural effusion Name [...] Type: *No Product type* / Secondary Insurance: [facility] Last Physical Therapy Recommendation: prison facility, swing [...] to: discuss discharge planning needs. provide the [facility], Office of Care Management letter from the Commercial Accountant pertaining to rehab referrals. provide a letter describing our affiliations within the [facility] and educate about their right to choose where referrals are sent. provide the CMS Star Quality Rating handout. review the different levels of rehab including SNF, swing, and acute. provide a list of facilities within their preferred geographic area. request that they provide at least three choices for referral. They have requested referrals to: [facility] [address] [place] [address] [facility]) [address] [place] [address] (Accepts pts only after exhausting all other local SNF options) [facility] ([facility]) ([facility]) [address] [place] [address] PHONE: [phone] FAX: [phone] Simin Benavides [place] ([facility]) [facility]) [address] [place] [address] PHONE: [phone] FAX: [phone] Note routed to a Grease And Tallow Pumper who will communicate referrals to facilities and [...] Crenshaw RN - 05/17/2023 10:25 AM EDT [facility]ITATION Purnima Thacker was seen today [...] from the original note were not included. [facility] NEPHROLOGY/HYPERTENSION CONSULT NOTE PATIENT: Purnima [...] in her course. She ultimately underwent a hpuzm-jz-gvcmp procedure on and tolerated it well (see [...] 1423 05/12/23 1105 PHART 7.39 7.37 7.34* KBX7ZOD 33* 36 42 PO2ART 101 102 73* FLB3FTG 19.5* 20.4 22.1 LACTATEVEN 1.5 1.8 2.8* FKB8DAS 40 40 40 PFRATIOART2 252 255 182 VBG (Venous Blood Gas) Recent Labs 05/12/23 1557 05/12/23 1423 05/12/23 1105 LACTATEVEN 1.5 1.8 2.8* Mixed Venous Sat Recent Labs 05/12/23 1425 05/12/23 0508 05/12/23 0321 T4SBOY1 59.9 30.7 32.7 LFT's: Recent Labs 05/14/23 0110 05/13/23 0115 05/12/23 0600 BILITOT 0.4 0.5 0.9 BILIDIR -- 0.3 -- ALBUMIN 3.6 3.0* 3.5 ALKPHOS 86 85 100 ALT 437* 903* 1,174* AST 319* 792* 1,435* No results found for: UPROTCREAT No results found for: TPROTEINPEP, ALBELECT No results found for: MICROALBUR, RYFC30GBV No results found for: HA1C Lab Results Component Value Date CALCIUM 8.5 05/14/2023 PHOS 4.7 (H) 05/08/2023 No results found for: 25OHVITD MICROBIOLOGY: ProcedureComponentValueUnitsDate/TimeUrine culture [[id number]]Collected: 05/11/231921Lab Status: Final resultSpecimen: Clean Catch UrineUpdated: [...] consulted for assessment if this patient needs ITALIAN TEACHER. Atthis time, we can likely hold off on ITALIAN TEACHER. Her volume status appears sufficient and her metabolic kanwal angements with mild acidosis is not too profound. Patient does not have significant uremic symptoms. We can hold off for today, but the patient is a high risk candidate for needing ITALIAN TEACHER in future daysespecially if her Cr curve trends the direction it is for the next several days. S/p Mpzbi-lj-Quvbn TF TAVR: Management per cardiology. On milrinone gtt. PLAN: - Please obtain following diagnostics: renal US, urinalysis, urine prot/Cr ratio, urine albumin/Cr ratio, CK, uric acid, serum osmol, daily VBGs - No acute indications for ITALIAN TEACHER/dialysis. We will keep close eye on Cr trend, volume status, and metabolics to ensure patient still does not need ITALIAN TEACHER as she ensues intrinsic renal recovery - [...] M.H.A., M.A. PGY-V Nephrology-Hypertension Fellow Page # [phone] [facility] [address] 2nd floor, Career Developer [address] [place] [address] * Care Management - Mario Alberto Olmos [...] *No Product type* / Secondary Insurance: [facility] Plan for discharge is: Home [...] CENTER at 0945. Was intubated in the matlab developer due to agitation. Maintained bedrest for 5 [...] Operative Note Patient Name: Purnima Thacker : [id number] MR#: [id number] Case Date: 05/12/2023 Surgeon: Surgeon(s) and Role: [...] procedure Note: Patient Name: Purnima Thacker : [id number] MR#: [id number] Case Date: 05/12/2023 Operators Surgeon: Surgeon(s) and [...] main with 4.0 x 30 mm Resolute [facility] Drug Eluting Stent Perclose x1 + Angio-seal 8 Fr x1, RFA Manual pressure, LFA Manual pressure, LFV Endotracheal intubation (performed by cardiac anesthesia) Preliminary findings: Successful right transfemoral TAVR Cmlvo-ym-Fortd with a 23 mm Lai 3 THV. [...] MD, M.Sc. Structural Heart Disease Fellow Pager :[phone] Antelmo Sharma MD Pager [phone] * Op Note - Alirio Hudson MD - 05/12/2023 7:37 AM EDT Preop Diagnosis: Severe aortic stenosis, symptomatic. Postop Diagnosis: Same. Procedure: Transfemoral TAVR procedure with 23mm valve. Surgeon: Alirio Hudson M.D. Chief Of Pediatric Urology: Danny CULP Procedure: The patient was taken to the matlab developer. The patient had monitored anesthesia care. 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 [facility] [place] [address] STRUCTURAL HEART DISEASE CONSULTATION NOTE PRIMARY CARE [...] who had been referred for possible TAVR jjcck-ke-leucx evaluation. Her primary symptoms are of dyspnea [...] [facility]. 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 [...] ejection fraction Mild coronary artery disease by [facility] 11/09/2022 Heart failure with reduced ejection [...] hour(s)) Lactate, whole blood, send to lab ([facility]) Result Value Ref Range Lactate WB 1.8 [...] leads Confirmed by MD Harshil, Enrique Bell ([id number]) on 05/10/2023 8:11:46 AM Assessment and Plan: [...] Antelmo Sharma MD Structural Heart Disease Pager [phone] * Plan of Care - Sarahi Nice [...] Transfer from another hospital Location: admitted from [facility] Reason for Hospitalization: [...] receiving care in [place] must abide by [place] law. The hierarchy [...] The agent with financial power of assistant city attorney or a conservator appointed in accordance [...] Current DME: none Home Address confirmed as: [address] [place] [id number] Social & Family Supports: All names listed [...] *No Product type* / Secondary Insurance: [facility] [place] ONLY if patient has Medicare A&B - Does this patient have secondary insurance?: Yes ; Prescription Coverage: Yes Preferred Pharmacy: updated to [employer] [facility] Status: Patient is a : No Primary Care Provider confirmed: Magdalena Acosta MD [phone] Patient/Caregiver Goals of Treatment: Potential Needs for [...] of a 2 story home with 2 [facility]. Patient is independent with ADL's at baseline [...] of care planning. Alie Bradshaw RN, CM Pager-[phone] * Plan of Care - Emily Lucero RN - 05/08/2023 2:54 PM EDT OUTCOME EVALUATION NOTE: OUTCOME SUMMARY: Pt arrived from [facility]. A&O, no c/o [...] EDT Appointment Hematology [place] [address] 05/12/2024 10:00 AM EDT Office Visit Hematology [place] [address] Markel Borjas MD [facility] [address] [place] [address] 03/01/2025 4:15 PM EDT Office Visit Dermatology at [place] [address] [facility] [place] [id number] Marek Bonilla MD [address], [address] DERMATOLOGY [place], [place] [id number] Scheduled Referrals Name Type Priority Associated Diagnoses [...] Heart Cath W/Inj L Ventriculography, Img S&I ([id number]) 05/12/2023 7:37 AM EDT Aortic valve stenosis, [...] COLOR DOPP (07/08/2023 12:15 PM EST) Pathologist [facility] EF 20 HEARTCompassMed SYSTEM Anatomical Region Laterality Modality Cardiac Other 07/08/2023 10:3 1 AM EST Narrative 07/08/2023 12:26 PM EST [address] [place] [id number] ? Echocardiogram Report Name: PURNIMA THACKER ?Study Date: 07/08/2023 10:31 AMBP: 118/60 mmHg ? Patient Location: : 1955 ? Height: 155 cm ? Account: [id number] Age: 67 yrs ? Weight: 74 kg [...] no significant change (post-procedure). Procedure Limited - 71542. Doppler - 52052. Color Doppler - 29938. Satisfactory quality. This study is limited because [...] Note Lee Kincaid MD - 07/08/2023 [address] [place] [address] Echocardiogram Report Name: PURNIMA THACKER Study Date: 0:31 AMBP: 118/60 mmHg Patient Location: : 1955 Height: 155 cm Account: [id number] Age: 67 yrs Weight: 74 kg Gender: [...] is nosignificant change (post-procedure). Procedure Limited - 44361. Doppler - 09339. Color Doppler - 24456. Satisfactoryquality. This study is limited because of [...] EST) Glucose 93 65 - 199 mg/dL [facility] Comment:Diabetes: >=200 mg/d L plus symptoms Blood Urea Nitrogen 19(H) 8 - 18 mg/dL [facility] Creatinine 0.81 0.70 - 1.20 mg/dL [facility] Sodium 142 135 - 145 mmol/L [facility] Potassium 3.8 3.5 - 5.0 mmol/L [facility] Comment: Please note: ??Patients with WBC >100,000 may have falsely elevated Potassium levels. ??For accurate Potassium quantification in these patients send serum separator tube (gold top) for subsequent determinations. ??Contact the Clinical Chemistry Laboratory if there are any questions. Chloride 104 98 - 107 mmol/L [facility] Carbon Dioxide 26 22 - 31 mmol/L [facility] Anion Gap 12 5 - 15 mmol/L [facility] Calcium 10.2 8.5 - 10.5 mg/dL [facility] Protein, Total 7.4 6.1 - 8.0 g/dL [facility] Albumin 4.1 3.2 - 5.2 g/dL [facility] Aspartate Aminotransferase 24 0 - 30 unit/L [facility] Alanine Aminotransferase 12 0 - 30 unit/L [facility] Alkaline Phosphatase 93 35 - 105 unit/L [facility] Bilirubin, Total 0.3 0.2 - 1.3 mg/dL [facility] Est Glomerular Filtration Rate 80 >=60 mL/min/1. 73 m?? [facility] Comment: This patient's estimated GFR [...] MD CHEMISTRY ORDERABLE S Performing Organization Address City/State/[facility] Co de Phone Number [facility] [place] [address] * (ABNORMAL) Basic Metabolic Panel (non-fasting) (05/22/2023 3:57 AM EDT) Pathologist [facility] Glucose 88 65 - 199 mg/dL [facility] Comment:Diabetes: >=200 mg/d L plus symptoms Blood Urea Nitrogen 21(H) 8 - 18 mg/dL [facility] Creatinine 0.69(L) 0.70 - 1.20 mg/dL [facility] Sodium 136 135 - 145 mmol/L [facility] Potassium 3.6 3.5 - 5.0 mmol/L [facility] Comment: Please note: ??Patients with WBC >100,000 may have falsely elevated Potassium levels. ??For accurate Potassium quantification in these patients send serum separator tube (gold top) for subsequent determinations. ??Contact the Clinical Chemistry Laboratory if there are any questions. Chloride 102 98 - 107 mmol/L [facility] Carbon Dioxide 23 22 - 31 mmol/L [facility] Anion Gap 11 5 - 15 mmol/L [facility] Calcium 8.6 8.5 - 10.5 mg/dL [facility] Est Glomerular Filtration Rate 95 >=60 mL/min/1. 73 m?? [facility] Comment: This patient's estimated GFR [...] Lab Mara Maggie OSBORN CHEMISTRY ORDERABL ES [facility] [place] [address] * (ABNORMAL) Basic Metabolic Panel (non-fasting) (05/21/2023 5:06 AM EDT) Pathologist [facility] Glucose 87 65 - 199 mg/dL [facility] Comment:Diabetes: >=200 mg/d L plus symptoms Blood Urea Nitrogen 25(H) 8 - 18 mg/dL [facility] Creatinine 0.84 0.70 - 1.20 mg/dL [facility] Sodium 136 135 - 145 mmol/L [facility] Potassium 3.6 3.5 - 5.0 mmol/L [facility] Comment: Please note: ??Patients with WBC >100,000 may have falsely elevated Potassium levels. ??For accurate Potassium quantification in these patients send serum separator tube (gold top) for subsequent determinations. ??Contact the Clinical Chemistry Laboratory if there are any questions. Chloride 102 98 - 107 mmol/L [facility] Carbon Dioxide 26 22 - 31 mmol/L [facility] Anion Gap 8 5 - 15 mmol/L [facility] Calcium 8.9 8.5 - 10.5 mg/dL [facility] Est Glomerular Filtration Rate 76 >=60 mL/min/1. 73 m?? [facility] Comment: This patient's estimated GFR [...] Narrative Resulting Agency Comment Spec In Lab [facility] LEGAL DIRECTOR CHEMISTRY ORDERABL ES Performing Organization Address [facility] Co de Phone Number [facility] [place] [address] * Lavender Tube HOLD (05/20/2023 2:52 AM EDT) Lavender Hold Sample in lab. [facility] Blood Venous Draw / Unknown 05/20/2023 2:52 AM EDT 05/20/2023 3:04 AM EDT [facility] LEGAL DIRECTOR HEMATOLOGY ORDERAB LES Performing Organization Address [facility] Co de Phone Number [facility] [place] [address] * (ABNORMAL) Basic Metabolic Panel (non-fasting) (05/20/2023 2:52 AM EDT) Glucose 152 65 - 199 mg/dL [facility] Comment:Diabetes: >=200 mg/d L plus symptoms Blood Urea Nitrogen 33(H) 8 - 18 mg/dL [facility] Creatinine 0.82 0.70 - 1.20 mg/dL [facility] Sodium 137 135 - 145 mmol/L [facility] Potassium 3.7 3.5 - 5.0 mmol/L [facility] Comment: Please note: ??Patients with WBC >100,000 may have falsely elevated Potassium levels. ??For accurate Potassium quantification in these patients send serum separator tube (gold top) for subsequent determinations. ??Contact the Clinical Chemistry Laboratory if there are any questions. Chloride 99 98 - 107 mmol/L [facility] Carbon Dioxide 22 22 - 31 mmol/L [facility] Anion Gap 16(H) 5 - 15 mmol/L [facility] Calcium 9.0 8.5 - 10.5 mg/dL [facility] Est Glomerular Filtration Rate 78 >=60 mL/min/1. 73 m?? [facility] Comment: This patient's estimated GFR [...] Agency Comment Spec In Lab Mara Thomasfield LEGAL DIRECTOR CHEMISTRY ORDERABL ES Performing Organization Address [facility] Co de Phone Number [facility] [place] [address] * (ABNORMAL) Potassium (05/20/2023 2:52 AM EDT) [facility] Signature Potassium 3.4(L) 3.5 - 5.0 mmol/L [facility] Comment: Please note: ??Patients with WBC >100,000 may have falsely elevated Potassium levels. ??For accurate Potassium quantification in these patients send serum separator tube (gold top) for subsequent determinations. ??Contact the Clinical Chemistry Laboratory if there are any questions. Blood 05/20/2023 2:52 AM EDT 05/20/2023 3:03 AM EDT Narrative Resulting Agency Comment Spec In Lab Mara Thomasfield LEGAL DIRECTOR CHEMISTRY ORDERABL ES Performing Organization Address [facility] Co de Phone Number [facility] [place] [address] * XR Chest PA & Lateral (Generic) [...] who have questions please contact the health resident care manager rn that requested your imaging first. ? Narrative [...] patients who have questions please contactthe health resident care manager rn that requested your imaging first. Alirio Hudson MD IMG DX ORDERABLES * (ABNORMAL) Basic Metabolic Panel (non-fasting) (05/19/2023 5:49 AM EDT) Glucose 93 65 - 199 mg/dL [facility] Comment:Diabetes: >=200 mg/d L plus symptoms Blood Urea Nitrogen 45(H) 8 - 18 mg/dL [facility] Creatinine 1.02 0.70 - 1.20 mg/dL [facility] Sodium 138 135 - 145 mmol/L [facility] Potassium 3.9 3.5 - 5.0 mmol/L [facility] Comment: Please note: ??Patients with WBC >100,000 may have falsely elevated Potassium levels. ??For accurate Potassium quantification in these patients send serum separator tube (gold top) for subsequent determinations. ??Contact the Clinical Chemistry Laboratory if there are any questions. Chloride 102 98 - 107 mmol/L [facility] Carbon Dioxide 26 22 - 31 mmol/L [facility] Anion Gap 10 5 - 15 mmol/L [facility] Calcium 9.7 8.5 - 10.5 mg/dL [facility] Est Glomerular Filtration Rate 60 >=60 mL/min/1. 73 m?? [facility] Comment: This patient's [...] Agency Comment Spec In Lab Mara Serrano LEGAL DIRECTOR [place] [address] * IR Chest Tube Placement Right (05/18/2023 [...] EDT) Glucose 95 65 - 199 mg/dL [facility] Comment:Diabetes: >=200 mg/d L plus symptoms Blood Urea Nitrogen 71(H) 8 - 18 mg/dL [facility] Comment:result rechecked-RUST Creatinine 1.64(H) 0.70 - 1.20 mg/dL [facility] Comment:result rechecked-RUST Sodium 137 135 - 145 mmol/L [facility] Potassium 3.7 3.5 - 5.0 mmol/L [facility] Comment: Please note: ??Patients with WBC >100,000 may have falsely elevated Potassium levels. ??For accurate Potassium quantification in these patients send serum separator tube (gold top) for subsequent determinations. ??Contact the Clinical Chemistry Laboratory if there are any questions. Chloride 100 98 - 107 mmol/L [facility] Carbon Dioxide 24 22 - 31 mmol/L [facility] Anion Gap 13 5 - 15 mmol/L [facility] Calcium 9.7 8.5 - 10.5 mg/dL [facility] Est Glomerular Filtration Rate 34(L) >=60 mL/min/1. 73 m?? [facility] Comment: This patient's estimated GFR [...] Agency Comment Spec In Lab Mara Serrano LEGAL DIRECTOR CHEMISTRY ORDERABL ES [facility] [place] [address] * XR Chest PA & Lateral (Generic) [...] who have questions please contact the health resident care manager rn that requested your imaging first. ? Narrative [...] patients who have questions please contactthe health resident care manager rn that requested your imaging first. Alirio Hudson MD IMG DX ORDERABLES * (ABNORMAL) Comprehensive metabolic panel (non-fasting) (05/17/2023 4:35 AM EDT) Glucose 89 65 - 199 mg/dL [facility] Comment:Diabetes: >=200 mg/d L plus symptoms Blood Urea Nitrogen 97(H) 8 - 18 mg/dL [facility] Creatinine 2.97(H) 0.70 - 1.20 mg/dL [facility] Comment:result rechecked-NINA Sodium 135 135 - 145 mmol/L [facility] Potassium 4.1 3.5 - 5.0 mmol/L [facility] Comment: Please note: ??Patients with WBC >100,000 may have falsely elevated Potassium levels. ??For accurate Potassium quantification in these patients send serum separator tube (gold top) for subsequent determinations. ??Contact the Clinical Chemistry Laboratory if there are any questions. Chloride 97(L) 98 - 107 mmol/L [facility] Carbon Dioxide 22 22 - 31 mmol/L [facility] Anion Gap 16(H) 5 - 15 mmol/L [facility] Calcium 9.6 8.5 - 10.5 mg/dL [facility] Protein, Total 6.5 6.1 - 8.0 g/dL [facility] Albumin 3.7 3.2 - 5.2 g/dL [facility] Aspartate Aminotransferase 58(H) 0 - 30 unit/L [facility] Alanine Aminotransferase 66(H) 0 - 30 unit/L [facility] Alkaline Phosphatase 86 35 - 105 unit/L [facility] Bilirubin, Total 0.6 0.2 - 1.3 mg/dL [facility] Est Glomerular Filtration Rate 17(L) >=60 mL/min/1. 73 m?? [facility] Comment: This patient's estimated GFR [...] Lab Alirio Hudson MD CHEMISTRY ORDERABLE S [facility] [place] [address] * Potassium (05/16/2023 11:15 PM EDT) Potassium 3.7 3.5 - 5.0 mmol/L [facility] Comment: Please note: ??Patients with [...] Address [facility]/ZIP Co de Phone Number [facility] [place] [address] * Magnesium (05/16/2023 5:22 PM EDT) Pathologist [facility] Magnesium 0.96 0.69 - 1.07 mmol/L [facility] Blood 05/16/2023 5:22 PM EDT 05/16/2023 5:27 PM EDT Narrative Resulting Agency Comment Spec In Lab Alirio Hudson MD CHEMISTRY ORDERABLE S Performing Organization Address [facility] Co de Phone Number [facility] [place] [address] * (ABNORMAL) Basic Metabolic Panel (non-fasting) (05/16/2023 5:22 PM EDT) Pathologist [facility] Glucose 106 65 - 199 mg/dL [facility] Comment:Diabetes: >=200 mg/d L plus symptoms Blood Urea Nitrogen 103(H) 8 - 18 mg/dL [facility] Creatinine 3.91(H) 0.70 - 1.20 mg/dL [facility] Comment:result rechecked-imm Sodium 132(L) 135 - 145 mmol/L [facility] Potassium 3.6 3.5 - 5.0 mmol/L [facility] Comment: Please note: ??Patients with WBC >100,000 may have falsely elevated Potassium levels. ??For accurate Potassium quantification in these patients send serum separator tube (gold top) for subsequent determinations. ??Contact the Clinical Chemistry Laboratory if there are any questions. Chloride 92(L) 98 - 107 mmol/L [facility] Carbon Dioxide 22 22 - 31 mmol/L [facility] Anion Gap 18(H) 5 - 15 mmol/L [facility] Calcium 9.7 8.5 - 10.5 mg/dL [facility] Est Glomerular Filtration Rate 12(L) >=60 mL/min/1. 73 m?? [facility] Comment: This patient's estimated GFR [...] MD CHEMISTRY ORDERABLE S Performing Organization Address City/[facility]/ZIP Co de Phone Number [facility] [place] [address] * (ABNORMAL) Potassium (05/16/2023 11:43 AM EDT) Potassium 3.3(L) 3.5 - 5.0 mmol/L [facility] Comment: Please note: ??Patients with [...] MD CHEMISTRY ORDERABLE S Performing Organization Address City/[facility]/ZIP Co de Phone Number [facility] [place] [address] * (ABNORMAL) Ferritin (05/16/2023 4:41 AM EDT) Pathologist [facility] Ferritin 1,813(H) 30 - 400 ng/mL [facility] Comment: Pediatric reference ranges not verified at [facility], interpret with caution. Reference ranges for females greater than 50 years of age approach values for men, i.e., 30-400 ng/mL. Blood 05/16/2023 4:41 AM EDT 05/16/2023 4:54 AM EDT Narrative Resulting Agency Comment Spec In Lab Kristopher Ayoub MD CHEMISTRY ORDERABLES [facility] [place] [address] * (ABNORMAL) PTH (05/16/2023 4:41 AM EDT) [facility] Parathyroid Hormone 120(H) 15 - 65 pg/mL [facility] Blood 05/16/2023 4:41 AM EDT 05/16/2023 4:54 AM EDT Narrative Resulting Agency Comment Spec In Lab Kristopher Ayoub MD CHEMISTRY ORDERABLES [facility] [place] [address] * Vitamin D, 25-Hydroxy (05/16/2023 4:41 AM EDT) [facility] Vitamin D Total 25 OH 33 21 - 100 ng/mL [facility] Vit D Interp Sufficient [facility] Blood 05/16/2023 4:41 AM EDT 05/16/2023 4:54 AM EDT Narrative Resulting Agency Comment Spec In Lab Kristopher Ayoub MD CHEMISTRY ORDERABLES [facility] [place] [address] * (ABNORMAL) Blood Gas Venous ([facility]) (05/16/2023 4:22 AM EDT) pH, Venous 7.41 7.32 - 7.42 [facility] PCO2, Venous 32(L) 41 - 51 mmHg [facility] PO2, Venous 73(H) 25 - 40 mmHg [facility] Bicarbonate, Venous 19.6 mmol/L [facility] Base Excess, Venous -5.1 mmol/L [facility] Hgb Blood Gas 9.7(L) 11.7 - 15.5 g/dL [facility] Oxyhemoglobin, Venous 92.8 % [facility] Carboxyhemoglob in, Venous 0.1 % [facility] Comment: Nonsmokers: 0.5-1.5% COHB Smokers: Variable, but usually less than 10% Toxic: 20-30% COHB Lethal: Greater than 60% COHB Methemoglobin, Venous 0.3 <=1.5 % [facility] Na Whole Blood 130(L) 135 - 145 mmol/L [facility] K Whole Blood 3.7 3.5 - 5.0 mmol/L [facility] Comment: Please note: Patients with WBC >100,000 may have falsely elevated Potassium levels. Contact the Clinical Chemistry Laboratory if there are any questions. ICa Whole Blood 1.15 1.15 - 1.33 mmol/L [facility] Comment: Note: ??Total bilirubin higher than 20 mg/dL may lead to falsely low ionized calcium. CL Whole Blood 95(L) 98 - 107 mmol/L [facility] Gluc Whole Bld 82 65 - 199 mg/dL [facility] Comment:Diabetes: >=200 mg/d L plus symptoms Lactate WB 1.1 0.5 - 2.2 mmol/L [facility] Blood Gas Source Venous [facility] Blood Venous Draw / Unknown 05/16/2023 4:22 AM EDT 05/16/2023 4:31 AM EDT Narrative Resulting Agency Comment Spec In Lab Bonita TOBAR CHEMISTRY ORDERABLES [facility] [place] [address] * (ABNORMAL) Differential, Automated (05/16/2023 4:20 AM EDT) Neutrophil % 84.1 % [facility] Neutrophil Absolute 6.22(H) 1.70 - 6.10 x10(3)/mc L [facility] Lymph % 5.8 % [facility] Lymphocytes Abs 0.4(L) 0.9 - 3.2 x10(3)/mc L [facility] Monocyte % 8.8 % [facility] Monocyte Abs 0.6 0.3 - 0.9 x10(3)/ L [facility] Eos % 0.4 % [facility] Eosinophils Abs 0.0 0.0 - 0.4 x10(3)/mc L [facility] Basophil % 0.0 % [facility] Baso Absolute 0.0 0.0 - 0.1 x10(3)/ L [facility] Immature Gran % 0.90 % [facility] Comment: Immature granulocytes(IG's)percentage and absolute count will include metamyelocytes, myelocytes, and promyelocytes. Blood smears from CBCs yielding IG's will be scanned manually for concordance. If this scan disagrees with the automated IG or if promyelocytes are noted, a manual differential will be performed. Immature Gran Absolute 0.07(H) 0.00 - 0.04 x10(3)/ L [facility] Blood 05/16/2023 4:20 AM EDT 05/16/2023 4:29 AM EDT Narrative Resulting Agency Comment Spec In Lab James Agustin MD HEMATOLOGY ORDER JODIE [facility] [place] [address] * (ABNORMAL) Hemogram (05/16/2023 4:20 AM EDT) White Blood Cell 7.4 4.0 - 9.5 x10(3)/mc L [facility] Red Blood Cell 2.40(L) 4.00 - 5.21 x10(6)/mc L [facility] Hemoglobin 7.8(L) 11.7 - 15.5 g/dL [facility] Hematocrit 22.5(L) 35.7 - 45.8 % [facility] Mean Cell Volume 93.8 82.6 - 94.4 fL [facility] Mean Cell Hemoglobin 32.5(H) 27.1 - 32.0 pg [facility] Mean Cell Hemoglobin Concentration 34.7 31.7 - 35.0 g/dL [facility] Platelet 120(L) 145 - 357 x10(3)/mc L [facility] RDW Standard Deviation 42.9 37.0 - 46.0 fL [facility] RDW coefficient of variation 12.9 11.5 - 14.1 % [facility] Mean Platelet Volume 11.3 7.6 - 12.9 fL [facility] NRBC% auto 0.7 % [facility] NRBC Absolute 0.050(H) 0.000 - 0.000 x10(3)/ L [facility] Blood 05/16/2023 4:20 AM EDT 05/16/2023 4:29 AM EDT Narrative Resulting Agency Comment Spec In Lab James Agustin MD HEMATOLOGY ORDER JODIE [facility] [place] [address] * (ABNORMAL) Basic Metabolic Panel (non-fasting) (05/16/2023 4:20 AM EDT) Glucose 89 65 - 199 mg/dL [facility] Comment:Diabetes: >=200 mg/d L plus symptoms Blood Urea Nitrogen 108(H) 8 - 18 mg/dL [facility] Creatinine 4.74(H) 0.70 - 1.20 mg/dL [facility] Comment:result rechecked-OLIVA Sodium 132(L) 135 - 145 mmol/L [facility] Potassium 3.9 3.5 - 5.0 mmol/L [facility] Comment: Please note: ??Patients with WBC >100,000 may have falsely elevated Potassium levels. ??For accurate Potassium quantification in these patients send serum separator tube (gold top) for subsequent determinations. ??Contact the Clinical Chemistry Laboratory if there are any questions. Chloride 95(L) 98 - 107 mmol/L [facility] Carbon Dioxide 18(L) 22 - 31 mmol/L [facility] Anion Gap 19(H) 5 - 15 mmol/L [facility] Calcium 9.2 8.5 - 10.5 mg/dL [facility] Est Glomerular Filtration Rate 10(L) >=60 mL/min/1. 73 m?? [facility] Comment: This patient's estimated GFR [...] MD CHEMISTRY ORDERABLE S Performing Organization Address City/[facility]/ZIP Co de Phone Number [facility] [place] [address] * (ABNORMAL) Iron and TIBC (05/16/2023 4:20 AM EDT) Iron 31 30 - 150 mcg/dL [facility] TIBC 259 250 - 450 mcg/dL [facility] Iron Saturation 12(L) 20 - 50 % [facility] Blood 05/16/2023 4:20 AM EDT 05/16/2023 4:29 AM EDT Narrative Resulting Agency Comment Spec In Lab Kristopher Ayoub MD CHEMISTRY ORDERABLES [facility] [place] [address] * (ABNORMAL) Basic Metabolic Panel (non-fasting) (05/15/2023 12:50 AM EDT) Glucose 101 65 - 199 mg/dL [facility] Comment:Diabetes: >=200 mg/d L plus symptoms Blood Urea Nitrogen 109(H) 8 - 18 mg/dL [facility] Creatinine 5.62(H) 0.70 - 1.20 mg/dL [facility] Comment:result rechecked-KS Sodium 131(L) 135 - 145 mmol/L [facility] Comment:result rechecked-KS Potassium 3.7 3.5 - 5.0 mmol/L [facility] Comment: result rechecked-KS Please note: ??Patients with WBC >100,000 may have falsely elevated Potassium levels. ??For accurate Potassium quantification in these patients send serum separator tube (gold top) for subsequent determinations. ??Contact the Clinical Chemistry Laboratory if there are any questions. Chloride 92(L) 98 - 107 mmol/L [facility] Comment:result rechecked-[place] Carbon Dioxide 18(L) 22 - 31 mmol/L [facility] Comment:result rechecked-[place] Anion Gap 21(H) 5 - 15 mmol/L [facility] Calcium 8.9 8.5 - 10.5 mg/dL [facility] Est Glomerular Filtration Rate 8(L) >=60 mL/min/1. 73 m?? [facility] Comment: This patient's estimated GFR [...] Lab Alirio Hudson MD CHEMISTRY ORDERABLE S [facility] [place] [address] * (ABNORMAL) Hemogram (05/15/2023 12:50 AM EDT) White Blood Cell 9.1 4.0 - 9.5 x10(3)/mc L [facility] Red Blood Cell 2.19(L) 4.00 - 5.21 x10(6)/mc L [facility] Hemoglobin 7.2(L) 11.7 - 15.5 g/dL [facility] Hematocrit 20.6(L) 35.7 - 45.8 % [facility] Mean Cell Volume 94.1 82.6 - 94.4 fL [facility] Mean Cell Hemoglobin 32.9(H) 27.1 - 32.0 pg [facility] Mean Cell Hemoglobin Concentration 35.0 31.7 - 35.0 g/dL [facility] Platelet 109(L) 145 - 357 x10(3)/mc L [facility] RDW Standard Deviation 43.6 37.0 - 46.0 fL [facility] RDW coefficient of variation 12.9 11.5 - 14.1 % [facility] Mean Platelet Volume 10.4 7.6 - 12.9 fL [facility] NRBC% auto 2.1 % [facility] NRBC Absolute 0.190(H) 0.000 - 0.000 x10(3)/ L [facility] Blood 05/15/2023 12:5 0 AM EDT 05/15/2023 12:52 AM EDT Narrative Resulting Agency Comment Spec In Lab Alirio Hudson MD HEMATOLOGY ORDERABL ES Performing Organization Address City/State/[facility] Co de Phone Number [facility] [place] [address] * (ABNORMAL) BLOOD GAS 2 VENOUS (05/15/2023 12:49 AM EDT) pH, Venous 7.33 7.32 - 7.42 [facility] PCO2, Venous 37(L) 41 - 51 mmHg [facility] PO2, Venous 34 25 - 40 mmHg [facility] Bicarbonate, Venous 19.1 mmol/L [facility] Base Excess, Venous -6.8 mmol/L [facility] Hgb Blood Gas 10.8(L) 11.7 - 15.5 g/dL [facility] Oxyhemoglobin, Venous 58.1 % [facility] Carboxyhemoglob in, Venous 0.3 % [facility] Comment: Nonsmokers: 0.5-1.5% COHB Smokers: Variable, but usually less than 10% Toxic: 20-30% COHB Lethal: Greater than 60% COHB Methemoglobin, Venous 0.6 <=1.5 % [facility] Na Whole Blood 136 135 - 145 mmol/L [facility] K Whole Blood 3.7 3.5 - 5.0 mmol/L [facility] Comment: Please note: Patients with WBC >100,000 may have falsely elevated Potassium levels. Contact the Clinical Chemistry Laboratory if there are any questions. ICa Whole Blood 1.12(L) 1.15 - 1.33 mmol/L [facility] Comment: Note: ??Total bilirubin higher than 20 mg/dL may lead to falsely low ionized calcium. CL Whole Blood 95(L) 98 - 107 mmol/L [facility] Gluc Whole Bld 101 65 - 199 mg/dL [facility] Comment:Diabetes: >=200 mg/d L plus symptoms Lactate WB 1.3 0.5 - 2.2 mmol/L [facility] Flow, Mike 1.0 LPM [facility] Blood Gas Source Venous [facility] Blood 05/15/2023 12:4 9 AM EDT 05/15/2023 12:49 AM EDT Alirio Hudson MD POINT OF CARE TEST ORDERABLES Performing Organization Address City/State/[facility] Co de Phone Number [facility] [place] [address] * US Retroperitoneal Complete (05/14/2023 3:53 PM [...] who have questions, please contact the health resident care manager rn that requested your imaging first. ? Hayden Robledo, Staff Physician Electronically Signed Final Report ?? 05/14/2023 04:39 pm Narrative 05/14/2023 4:39 PM EDT Renal ? (Signed Final 05/14/2023 04:39 pm) PATIENT INFO: ID #: ? [id number] ?: ??55 (67 yrs)(F) Name: ? PURNIMA THACKER ?Visit Date: 05/14/2023 03:44 pm PERFORMED BY: Attending: ?Meena CULP, Hayden Stafford Resident: ? Anand Camejo MD Performed By: ? Consuelo Tello RDMS Referred By: ?ALIRIO HUDSON Location: ? [place] SERVICE(S) PROVIDED: URETRO - Retroperitoneal Complete - [id number] ? [id number] INDICATIONS: EVANS COMPARISON: CT: Abdomen/Pelvis 05/11/23 RIGHT [...] 05/14/2023 04:39 pm) PATIENT INFO: ID #: [id number] : 55 (67 yrs)(F) Name: PURNIMA THACKER Visit Date: 05/14/2023 03:44 pm PERFORMED BY: Attending: Hayden Robledo MD Resident: Anand Camejo MD Performed By: Consuelo Tello RDMS Referred By: ALIRIO HUDSON Location: [place] SERVICE(S) PROVIDED: URETRO - Retroperitoneal Complete - [id number] INDICATIONS: EVANS COMPARISON: CT: Abdomen/Pelvis 05/11/23 RIGHT [...] who have questions, please contact the health resident care manager rn that requested your imaging first. Hayden Robledo, Staff Physician Electronically Signed Final Report 05/14/2023 04:39 pm Alirio Hudson MD IMG US GEN ORDERABL ES * CK (05/14/2023 3:17 PM EDT) Creatine Kinase 123 0 - 160 unit/L [facility] Blood 05/14/2023 3:17 PM EDT 05/14/2023 3:31 PM EDT Narrative Resulting Agency Comment Spec In Lab Alirio Hudson MD CHEMISTRY ORDERABLE S Performing Organization Address City/[facility]/ZIP Co de Phone Number [facility] [place] [address] * (ABNORMAL) Uric acid (05/14/2023 3:17 PM EDT) Uric Acid 14.9(H) 2.5 - 6.5 mg/dL [facility] Blood 05/14/2023 3:17 PM EDT 05/14/2023 3:31 PM EDT Narrative Resulting Agency Comment Spec In Lab Alirio Hudson MD CHEMISTRY ORDERABLE S [facility] [place] [address] * (ABNORMAL) Osmolality (05/14/2023 3:17 PM EDT) Osmolality 311(H) 275 - 295 mOsm/kg [facility] Blood 05/14/2023 3:17 PM EDT 05/14/2023 3:31 PM EDT Narrative Resulting Agency Comment Spec In Lab Alirio Hudson MD CHEMISTRY ORDERABLE S [facility] [place] [address] * (ABNORMAL) Differential, Automated (05/14/2023 1:10 AM EDT) Neutrophil % 87.2 % [facility] Neutrophil Absolute 9.74(H) 1.70 - 6.10 x10(3)/mc L [facility] Lymph % 3.9 % [facility] Lymphocytes Abs 0.4(L) 0.9 - 3.2 x10(3)/mc L [facility] Monocyte % 7.9 % [facility] Monocyte Abs 0.9 0.3 - 0.9 x10(3)/mc L [facility] Eos % 0.0 % [facility] Eosinophils Abs 0.0 0.0 - 0.4 x10(3)/mc L [facility] Basophil % 0.1 % [facility] Baso Absolute 0.0 0.0 - 0.1 x10(3)/mc L [facility] Immature Gran % 0.90 % [facility] Comment: Immature granulocytes(IG's)percentage and absolute count will include metamyelocytes, myelocytes, and promyelocytes. Blood smears from CBCs yielding IG's will be scanned manually for concordance. If this scan disagrees with the automated IG or if promyelocytes are noted, a manual differential will be performed. Immature Gran Absolute 0.10(H) 0.00 - 0.04 x10(3)/mc L [facility] Blood 05/14/2023 1:10 AM EDT 05/14/2023 1:24 AM EDT Narrative Resulting Agency Comment Spec In Lab Bonita TOBAR HEMATOLOGY ORDERABLE S [facility] [place] [address] * (ABNORMAL) Hemogram (05/14/2023 1:10 AM EDT) White Blood Cell 11.2(H) 4.0 - 9.5 x10(3)/mc L [facility] Red Blood Cell 2.19(L) 4.00 - 5.21 x10(6)/mc L [facility] Hemoglobin 7.2(L) 11.7 - 15.5 g/dL [facility] Hematocrit 20.3(L) 35.7 - 45.8 % [facility] Mean Cell Volume 92.7 82.6 - 94.4 fL [facility] Mean Cell Hemoglobin 32.9(H) 27.1 - 32.0 pg [facility] Mean Cell Hemoglobin Concentration 35.5(H) 31.7 - 35.0 g/dL [facility] Platelet 112(L) 145 - 357 x10(3)/mc L [facility] RDW Standard Deviation 41.4 37.0 - 46.0 fL [facility] RDW coefficient of variation 12.5 11.5 - 14.1 % [facility] Mean Platelet Volume 10.4 7.6 - 12.9 fL [facility] NRBC% auto 1.5 % [facility] NRBC Absolute 0.170(H) 0.000 - 0.000 x10(3)/mc L [facility] Blood 05/14/2023 1:10 AM EDT 05/14/2023 1:24 AM EDT Narrative Resulting Agency Comment Spec In Lab Bonita TOBAR HEMATOLOGY ORDERABLE S Performing Organization Address City/State/[facility] Co de Phone Number [facility] [place] [address] * (ABNORMAL) Comprehensive metabolic panel (non-fasting) (05/14/2023 1:10 AM EDT) Glucose 120 65 - 199 mg/dL [facility] Comment:Diabetes: >=200 mg/d L plus symptoms Blood Urea Nitrogen 98(H) 8 - 18 mg/dL [facility] Creatinine 4.80(H) 0.70 - 1.20 mg/dL [facility] Comment:result rechecked-ssc Sodium 132(L) 135 - 145 mmol/L [facility] Potassium 4.1 3.5 - 5.0 mmol/L [facility] Comment: Please note: ??Patients with WBC >100,000 may have falsely elevated Potassium levels. ??For accurate Potassium quantification in these patients send serum separator tube (gold top) for subsequent determinations. ??Contact the Clinical Chemistry Laboratory if there are any questions. Chloride 94(L) 98 - 107 mmol/L [facility] Carbon Dioxide 18(L) 22 - 31 mmol/L [facility] Anion Gap 20(H) 5 - 15 mmol/L [facility] Calcium 8.5 8.5 - 10.5 mg/dL [facility] Protein, Total 5.8(L) 6.1 - 8.0 g/dL [facility] Albumin 3.6 3.2 - 5.2 g/dL [facility] Aspartate Aminotransferase 319(H) 0 - 30 unit/L [facility] Alanine Aminotransferase 437(H) 0 - 30 unit/L [facility] Alkaline Phosphatase 86 35 - 105 unit/L [facility] Bilirubin, Total 0.4 0.2 - 1.3 mg/dL [facility] Est Glomerular Filtration Rate 9(L) >=60 mL/min/1. 73 m?? [facility] Comment: This patient's estimated GFR [...] Lab Alirio Hudson MD CHEMISTRY ORDERABLE S [facility] [place] [address] * APTT (05/13/2023 10:15 AM EDT) Partial [...] Address [facility] de Phone Number [facility] [place] [address] * (ABNORMAL) Prothrombin Time (05/13/2023 10:15 AM EDT) Prothrombin Time 14.6(H) 9.4 - 12.5 sec [facility] International Normalization Ratio 1.3 [facility] Comment: An INR <2.0 indicates adequate [...] HEMATOLOGY ORDERABL ES Performing Organization Address [facility] de Phone Number [facility] [place] [address] * EKG 12 Lead (05/13/2023 9:22 AM EDT) Ventricular rate 92 BPM MUSE SYSTEM Atrial Rate 92 BPM MUSE SYSTEM P-R Interval 140 ms MUSE SYSTEM QRS Duration 104 ms MUSE SYSTEM Q-T Interval 384 ms MUSE SYSTEM QTC Calculated (Bezet) 474 ms MUSE SYSTEM Calculated P [place] 33 degrees MUSE SYSTEM Calculated R [place] 41 degrees MUSE SYSTEM Calculated T [place] -35 degrees MUSE SYSTEM INTERPRETATION Sinus rhythm with frequent Premature ventricular complexes Septal infarct , age undetermined ST & T wave abnormality, consider lateral ischemia Abnormal ECG When compared with ECG of 12-MAY-2023 10:10, Premature ventricular complexes are now Present I personally reviewed the tracing and edited the fellows interpretation Confirmed by fellow MD Anitha, Carissa ([id number]) on 05/13/2023 3:25:30 PM Confirmed by Maxx Best ([id number]) on 05/13/2023 8:30:56 PM MUSE SYSTEM 05/13/2023 9:22 AM EDT 05/13/2023 8:30 PM EDT Alirio Hudson MD ECG ORDERABLES MUSE SYSTEM * (ABNORMAL) Differential, Automated (05/13/2023 1:15 AM EDT) Neutrophil % 88.1 % [facility] Neutrophil Absolute 7.62(H) 1.70 - 6.10 x10(3)/mc L [facility] Lymph % 3.1 % [facility] Lymphocytes Abs 0.3(L) 0.9 - 3.2 x10(3)/mc L [facility] Monocyte % 7.9 % [facility] Monocyte Abs 0.7 0.3 - 0.9 x10(3)/mc L [facility] Eos % 0.0 % [facility] Eosinophils Abs 0.0 0.0 - 0.4 x10(3)/mc L [facility] Basophil % 0.1 % [facility] Baso Absolute 0.0 0.0 - 0.1 x10(3)/mc L [facility] Immature Gran % 0.80 % [facility] Comment: Immature granulocytes(IG's)percentage and absolute count will include metamyelocytes, myelocytes, and promyelocytes. Blood smears from CBCs yielding IG's will be scanned manually for concordance. If this scan disagrees with the automated IG or if promyelocytes are noted, a manual differential will be performed. Immature Gran Absolute 0.07(H) 0.00 - 0.04 x10(3)/mc L [facility] Blood 05/13/2023 1:15 AM EDT 05/13/2023 1:29 AM EDT Narrative Resulting Agency Comment Spec In Lab Lorri TOBAR HEMATOLOGY ORDERABLE S [facility] [place] [address] * (ABNORMAL) Hemogram (05/13/2023 1:15 AM EDT) White Blood Cell 8.6 4.0 - 9.5 x10(3)/mc L [facility] Red Blood Cell 2.37(L) 4.00 - 5.21 x10(6)/mc L [facility] Hemoglobin 7.8(L) 11.7 - 15.5 g/dL [facility] Hematocrit 22.2(L) 35.7 - 45.8 % [facility] Mean Cell Volume 93.7 82.6 - 94.4 fL [facility] Mean Cell Hemoglobin 32.9(H) 27.1 - 32.0 pg [facility] Mean Cell Hemoglobin Concentration 35.1(H) 31.7 - 35.0 g/dL [facility] Platelet 130(L) 145 - 357 x10(3)/mc L [facility] RDW Standard Deviation 41.7 37.0 - 46.0 fL [facility] RDW coefficient of variation 12.5 11.5 - 14.1 % [facility] Mean Platelet Volume 10.2 7.6 - 12.9 fL [facility] NRBC% auto 0.5 % [facility] NRBC Absolute 0.040(H) 0.000 - 0.000 x10(3)/mc L [facility] Blood 05/13/2023 1:15 AM EDT 05/13/2023 1:29 AM EDT Narrative Resulting Agency Comment Spec In Lab Lorri TOBAR HEMATOLOGY ORDERABLE S [facility] [place] [address] * (ABNORMAL) Hepatic Function Panel (05/13/2023 1:15 AM EDT) Protein, Total 5.5(L) 6.1 - 8.0 g/dL [facility] Albumin 3.0(L) 3.2 - 5.2 g/dL [facility] Aspartate Aminotransferase 792(H) 0 - 30 unit/L [facility] Alanine Aminotransferase 903(H) 0 - 30 unit/L [facility] Alkaline Phosphatase 85 35 - 105 unit/L [facility] Bilirubin, Total 0.5 0.2 - 1.3 mg/dL [facility] Bilirubin, Direct 0.3 0.0 - 0.3 mg/dL [facility] Blood 05/13/2023 1:15 AM EDT 05/13/2023 1:29 AM EDT Narrative Resulting Agency Comment Spec In Lab Alirio Hudson MD CHEMISTRY ORDERABLE S Performing Organization Address City/State/[facility] Co de Phone Number [facility] [place] [address] * (ABNORMAL) Basic Metabolic Panel (non-fasting) (05/13/2023 1:15 AM EDT) Glucose 107 65 - 199 mg/dL [facility] Comment:Diabetes: >=200 mg/d L plus symptoms Blood Urea Nitrogen 82(H) 8 - 18 mg/dL [facility] Creatinine 3.15(H) 0.70 - 1.20 mg/dL [facility] Comment:result rechecked-OG Sodium 132(L) 135 - 145 mmol/L [facility] Potassium 3.8 3.5 - 5.0 mmol/L [facility] Comment: Please note: ??Patients with WBC >100,000 may have falsely elevated Potassium levels. ??For accurate Potassium quantification in these patients send serum separator tube (gold top) for subsequent determinations. ??Contact the Clinical Chemistry Laboratory if there are any questions. Chloride 95(L) 98 - 107 mmol/L [facility] Carbon Dioxide 20(L) 22 - 31 mmol/L [facility] Anion Gap 17(H) 5 - 15 mmol/L [facility] Calcium 8.3(L) 8.5 - 10.5 mg/dL [facility] Est Glomerular Filtration Rate 16(L) >=60 mL/min/1. 73 m?? [facility] Comment: This patient's estimated GFR [...] MD CHEMISTRY ORDERABLE S Performing Organization Address City/State/[facility] Co de Phone Number [facility] [place] [address] * (ABNORMAL) BLOOD GAS 2 ARTERIAL (05/12/2023 3:57 PM EDT) pH, Arterial 7.39 7.35 - 7.45 [facility] PCO2, Arterial 33(L) 35 - 45 mmHg [facility] PO2, Arterial 101 85 - 104 mmHg [facility] Bicarbonate, Arterial 19.5(L) 20.0 - 26.0 mmol/L [facility] Base Excess, Arterial -5.5(L) -3.0 - 3.0 mmol/L [facility] Hgb Blood Gas 9.8(L) 11.7 - 15.5 g/dL [facility] Oxyhemoglobin, Arterial 95.2 94.0 - 97.0 % [facility] Carboxyhemoglob in, Arterial 0.2 % [facility] Comment: Nonsmokers: 0.5-1.5% COHB Smokers: Variable, but usually less than 10% Toxic: 20-30% COHB Lethal: Greater than 60% COHB Methemoglobin, Arterial 0.8 <=1.5 % [facility] Na Whole Blood 129(L) 135 - 145 mmol/L [facility] K Whole Blood 3.8 3.5 - 5.0 mmol/L [facility] Comment: Please note: Patients with WBC >100,000 may have falsely elevated Potassium levels. Contact the Clinical Chemistry Laboratory if there are any questions. ICa Whole Blood 1.05(L) 1.15 - 1.33 mmol/L [facility] Comment: Note: ??Total bilirubin higher than 20 mg/dL may lead to falsely low ionized calcium. CL Whole Blood 96(L) 98 - 107 mmol/L [facility] Gluc Whole Bld 178 65 - 199 mg/dL [facility] Comment:Diabetes: >=200 mg/d L plus symptoms. Lactate WB 1.5 0.5 - 2.2 mmol/L [facility] FIO2 Art 40 % [facility] PF Ratio Art 252 [facility] Blood 05/12/2023 3:57 PM EDT 05/12/2023 3:57 PM EDT Alirio Hudson MD POINT OF CARE TEST ORDERABLES Performing Organization Address [facility] Co de Phone Number [facility] [place] [address] * (ABNORMAL) Coox2 (05/12/2023 2:25 PM EDT) pO2, Coox 37 mmHg [facility] Hgb Blood Gas 9.5(L) 11.7 - 15.5 g/dL [facility] Oxyhemoglobin, Coox 59.9 % [facility] Carboxyhemoglo bin, Coox 0.3 % [facility] Comment: Nonsmokers: 0.5-1.5% COHB Smokers: Variable, but usually less than 10% Toxic: 20-30% COHB Lethal: Greater than 60% COHB Methemoglobin, Coox 0.7 <=1.5 % [facility] Source Coox Mixed Venous [facility] Blood 05/12/2023 2:25 PM EDT 05/12/2023 2:25 PM EDT Alirio Hudson MD POINT OF CARE TEST ORDERABLES Performing Organization Address [facility] Co de Phone Number [facility] [place] [address] * (ABNORMAL) BLOOD GAS 2 ARTERIAL (05/12/2023 2:23 PM EDT) pH, Arterial 7.37 7.35 - 7.45 [facility] PCO2, Arterial 36 35 - 45 mmHg [facility] PO2, Arterial 102 85 - 104 mmHg [facility] Bicarbonate, Arterial 20.4 20.0 - 26.0 mmol/L [facility] Base Excess, Arterial -4.8(L) -3.0 - 3.0 mmol/L [facility] Hgb Blood Gas 12.7 11.7 - 15.5 g/dL [facility] Oxyhemoglobin, Arterial 95.4 94.0 - 97.0 % [facility] Carboxyhemoglob in, Arterial 0.3 % [facility] Comment: Nonsmokers: 0.5-1.5% COHB Smokers: Variable, but usually less than 10% Toxic: 20-30% COHB Lethal: Greater than 60% COHB Methemoglobin, Arterial 0.7 <=1.5 % [facility] Na Whole Blood 129(L) 135 - 145 mmol/L [facility] K Whole Blood 3.7 3.5 - 5.0 mmol/L [facility] Comment: Please note: Patients with WBC >100,000 may have falsely elevated Potassium levels. Contact the Clinical Chemistry Laboratory if there are any questions. ICa Whole Blood 1.05(L) 1.15 - 1.33 mmol/L [facility] Comment: Note: ??Total bilirubin higher than 20 mg/dL may lead to falsely low ionized calcium. CL Whole Blood 95(L) 98 - 107 mmol/L [facility] Gluc Whole Bld 168 65 - 199 mg/dL [facility] Comment:Diabetes: >=200 mg/d L plus symptoms. Lactate WB 1.8 0.5 - 2.2 mmol/L [facility] FIO2 Art 40 % [facility] PF Ratio Art 255 [facility] Blood 05/12/2023 2:23 PM EDT 05/12/2023 2:23 PM EDT Alirio Hudson MD POINT OF CARE TEST ORDERABLES [facility] [place] [address] * (ABNORMAL) Troponin (05/12/2023 2:05 PM EDT) Troponin-T, High Sensitivity 1,022(H) <=14 ng/L [facility] Comment: This patient's troponin T concentration [...] can be found in the [facility] Laboratory Test Catalog Troponin - [facility] Laboratory Test Catalog Reference: Fourth [employer] Definition of Myocardial Infarction. Journal of the [employer] 2018;72:8536-3032 Blood 05/12/2023 2:05 PM EDT 05/12/2023 2:14 PM EDT Narrative Resulting Agency Comment Spec In Lab Alirio Hudson MD CHEMISTRY ORDERABLE S [facility] [place] [address] * (ABNORMAL) Hemoglobin (05/12/2023 2:05 PM EDT) Hemoglobin 8.5(L) 11.7 - 15.5 g/dL [facility] Blood 05/12/2023 2:05 PM EDT 05/12/2023 2:14 PM EDT Narrative Resulting Agency Comment Spec In Lab Alirio Hudson MD HEMATOLOGY ORDERABL ES Performing Organization Address [facility] Co de Phone Number [facility] [place] [address] * Potassium (05/12/2023 2:05 PM EDT) Potassium 3.9 3.5 - 5.0 mmol/L [facility] Comment: Please note: ??Patients with [...] Address [facility] Co de Phone Number [facility] [place] [address] * (ABNORMAL) BLOOD GAS 2 ARTERIAL (05/12/2023 11:05 AM EDT) pH, Arterial 7.34(L) 7.35 - 7.45 [facility] PCO2, Arterial 42 35 - 45 mmHg [facility] PO2, Arterial 73(L) 85 - 104 mmHg [facility] Bicarbonate, Arterial 22.1 20.0 - 26.0 mmol/L [facility] Base Excess, Arterial -3.6(L) -3.0 - 3.0 mmol/L [facility] Hgb Blood Gas 9.3(L) 11.7 - 15.5 g/dL [facility] Oxyhemoglobin, Arterial 89.3(L) 94.0 - 97.0 % [facility] Carboxyhemoglob in, Arterial 0.2 % [facility] Comment: Nonsmokers: 0.5-1.5% COHB Smokers: Variable, but usually less than 10% Toxic: 20-30% COHB Lethal: Greater than 60% COHB Methemoglobin, Arterial 0.9 <=1.5 % [facility] Na Whole Blood 131(L) 135 - 145 mmol/L [facility] K Whole Blood 3.8 3.5 - 5.0 mmol/L [facility] Comment: Please note: Patients with WBC >100,000 may have falsely elevated Potassium levels. Contact the Clinical Chemistry Laboratory if there are any questions. ICa Whole Blood 1.04(L) 1.15 - 1.33 mmol/L [facility] Comment: Note: ??Total bilirubin higher than 20 mg/dL may lead to falsely low ionized calcium. CL Whole Blood 96(L) 98 - 107 mmol/L [facility] Gluc Whole Bld 152 65 - 199 mg/dL [facility] Comment:Diabetes: >=200 mg/d L plus symptoms. Lactate WB 2.8(H) 0.5 - 2.2 mmol/L [facility] FIO2 Art 40 % [facility] PF Ratio Art 182 [facility] Blood 05/12/2023 11:0 5 AM EDT 05/12/2023 11:05 AM EDT Alirio Hudson MD POINT OF CARE TEST ORDERABLES [facility] [place] [address] * (ABNORMAL) BLOOD GAS 2 ARTERIAL (05/12/2023 10:14 AM EDT) pH, Arterial 7.18(Criti gabrielle) 7.35 - 7.45 [facility] Comment:Noted by assembler musical instruments. PCO2, Arterial 45 35 - 45 mmHg [facility] PO2, Arterial 186(H) 85 - 104 mmHg [facility] Bicarbonate, Arterial 16.2(L) 20.0 - 26.0 mmol/L [facility] Base Excess, Arterial -12.2(L) -3.0 - 3.0 mmol/L [facility] Hgb Blood Gas 10.0(L) 11.7 - 15.5 g/dL [facility] Oxyhemoglobin, Arterial 97.0 94.0 - 97.0 % [facility] Carboxyhemoglob in, Arterial 0.2 % [facility] Comment: Nonsmokers: 0.5-1.5% COHB Smokers: Variable, but usually less than 10% Toxic: 20-30% COHB Lethal: Greater than 60% COHB Methemoglobin, Arterial 0.9 <=1.5 % [facility] Na Whole Blood 129(L) 135 - 145 mmol/L [facility] K Whole Blood 3.6 3.5 - 5.0 mmol/L [facility] Comment: Please note: Patients with WBC >100,000 may have falsely elevated Potassium levels. Contact the Clinical Chemistry Laboratory if there are any questions. ICa Whole Blood 1.10(L) 1.15 - 1.33 mmol/L [facility] Comment: Note: ??Total bilirubin higher than 20 mg/dL may lead to falsely low ionized calcium. CL Whole Blood 97(L) 98 - 107 mmol/L [facility] Gluc Whole Bld 161 65 - 199 mg/dL [facility] Comment:Diabetes: >=200 mg/d L plus symptoms. Lactate WB 3.3(H) 0.5 - 2.2 mmol/L [facility] FIO2 Art 100 % [facility] PF Ratio Art 186 [facility] Blood 05/12/2023 10:1 4 AM EDT 05/12/2023 10:14 AM EDT Alirio Hudson MD POINT OF CARE TEST ORDERABLES Performing Organization Address City/State/[facility] Co de Phone Number [facility] [place] [address] * EKG 12 Lead (05/12/2023 10:10 AM EDT) Ventricular rate 116 BPM MUSE SYSTEM Atrial Rate 116 BPM MUSE SYSTEM P-R Interval 158 ms MUSE SYSTEM QRS Duration 114 ms MUSE SYSTEM Q-T Interval 348 ms MUSE SYSTEM QTC Calculated (Bezet) 483 ms MUSE SYSTEM Calculated P [place] 37 degrees MUSE SYSTEM Calculated R [place] 31 degrees MUSE SYSTEM Calculated T [place] -138 degrees MUSE SYSTEM INTERPRETATION Sinus tachycardia [...] interpretation Confirmed by fellow MD Anuja, Jim ([id number]) on 05/12/2023 1:04:20 PM Confirmed by MD Mono, Eleni ([id number]) on 05/12/2023 9:28:34 PM MUSE SYSTEM 05/12/2023 [...] who have questions please contact the health resident care manager rn that requested your imaging first. ? Narrative 05/12/2023 10:08 AM EDT EXAMINATION: XR CHEST ONE VIEW CLINICAL HISTORY: Post TAVR TECHNIQUE: 1 view of the chest COMPARISON: Chest radiograph from earlier today FINDINGS: Interval placement of endotracheal tube with tip terminating 2 cm above the shira. Interval placement of enteric tube projecting along the expected course of the esophagus and outside the uhwqc-xw-rpiv. Interval retraction of right IJ approach pulmonary [...] expected course ofthe esophagus and outside the qrlxu-kx-colh. Interval retraction of right IJ approach pulmonary [...] patients who have questions please contactthe health resident care manager rn that requested your imaging first. Alirio Hudson [...] 1955 ? Height: 154 cm ? Account: [id number] Age: 67 yrs ? Weight: 75 kg [...] mL/m2. POST TAVR: Normal function of the ppllu-dq-yjuyy prosthesis. See below for hemodynamic parameters. Slight improvement in left and right ventricular systolic function. LVEF now 20-25%. No pericardial effusion. See report for additional findings. Procedure Limited - 21830. Doppler - 42181. Color Doppler - 34078. Left Ventricle Left ventricle is of normal [...] Date: 307:33 AMBP: 96/63 mmHg Patient Location: [address] : 1955 Height: 154 cm Account: [id number] Age: 67 yrs Weight: 75 kg Gender: [...] 28mL/m2. POST TAVR: Normal function of the bvvnk-nc-lgkay prosthesis. See belowfor hemodynamic parameters. Slight improvement in left and right ventricularsystolic function. LVEF now 20-25%. No pericardial effusion. See report for additional findings. Procedure Limited - 52062. Doppler - 46682. Color Doppler - 31818. Left Ventricle Left ventricle is of normal [...] Modality Other Narrative 05/12/2023 2:37 PM EDT ?[facility] ? Cardiac Catheterization/Intervention Report ? Patient Name: Kirstie, Purnima M. ? Procedure Date: 05/12/2023 ? A #: [id number] ? Primary Physician: Antelmo Sharma ? Case #: [id number] ? File Name: [id number] ? Catheterization Order Number: [id number] ? [facility] ? Final Report [place], [place] ? Patient Name: ? Purnima Thacker ? ID#: ?[id number] ? : ?1955 ? Procedure Date: ? May 12, 2023 ? Case #: ? [id number] ? Room: ? 6 ? Case Physicians: ?Antelmo Sharma M.D. ?Start: ?08:03 ?Alirio Hudson M.D. ?Admission: ??05/08/2023 ?Lynda Mcgowan M.D. ? Discharge: ??05/22/2023 ?Fellow: ? Kristied Adair Tejeda ? Referring Physician: ??Mario Alberto Chin M.D. ? Procedures: ?* Coronary Angiography ?* Left Heart Catheterization ?* Coronary Stent Insertion ?* Transcatheter Aortic Valve Replacement ?* Vascular Closure Device Deployment ?* Temporary Pacemaker Insertion In Network Security Officer ?* Endotracheal Intubation By Non-Cath Physician [...] was designated as ASA Class IV. The [facility] clinical ?frailty scale is 4: Vulnerable. [...] guide. ??A premounted 4.00 x 30 mm [place] Perkins (MINNA) was ? deployed with a maximum [...] calculated STS risk score was 30.1%. A vnxes-hy-felrl ?procedure was performed on the pre-existing bioprosthetic stented ?prosthesis. The priority of the ueind-wp-nkniu procedure was Elective. ?The procedure was performed [...] Lai 3 Ultra RESILIA 23 mm THV (s/q=[id number]) transcatheter ?valve was inserted using standard technique. [...] to nor was it given in the ?matlab developer. ?Recommended anti-platelet/anti-thrombotic regimen: ?Continue aspirin 81 mg daily for indefinitely. ?These recommendations are made at the time of the intervention. Patient ?and provider preferences or a changing clinical situation may require ?modification of this regimen. Consult [facility] Interventional Cardiology for ?questions. ? Conclusions: ?* [...] regimen. ? Comments: ?Successful right transfemoral TAVR Zzwyt-xa-Weqnt with a 23 mm Lai 3 ?THV. [...] insertion-coronary, access site angiography, ?temporary pacemaker in matlab developer, intubation-non cath physician, vascular ?closure device, transthoracic echo ??and TAVR. Dr. Alirio Hudson M.D. ?performed the left heart catheterization, access site angiography, ?temporary pacemaker in matlab developer, vascular closure device, transthoracic ?echo , TAVR and CPR during cath. Dr. Lynda Mcgowan M.D. performed the ABG, ?anesthesia and intubation-non cath physician. ? Antelmo Sharma M.D. ? Electronically Signed by: Antelmo Sharma M.D. ? Report Finalized: 05/12/2023 ??14:31 ? Report Last Ammended: 07/01/2023 ??11:30 ? Procedure Note Antelmo Sharma MD - 07/01/2023 [facility] Cardiac Catheterization/Intervention Report Patient Name: Purnima Thacker Procedure Date: 05/12/2023 A #: [id number] Primary Physician: Antelmo Sharma Case #: [id number] File Name: [id number] Catheterization Order Number: [id number] [facility] FinalReport [place], [place] Patient Name: Purnima Thacker ID#:[id number] :1955 Procedure Date: May 12, 2023 Case #: [id number] Room: 6 Case Physicians: Antelmo Sharma M.D. Start: 08:03 Alirio Hudson M.D. Admission:05/08/2023 Lynda Mcgowan M.D. Discharge:05/22/2023 Fellow: Rebekah Tejeda M.D. Referring Physician: Mario Alberto Chin M.D. Procedures: * Coronary Angiography * Left Heart Catheterization * Coronary Stent Insertion * Transcatheter Aortic Valve Replacement * Vascular Closure Device Deployment * Temporary Pacemaker Insertion In Network Security Officer * Endotracheal Intubation By Non-Cath Physician [...] A premounted 4.00 x 30 mm Nils Perkins (MINNA) was deployed with a maximum inflation [...] calculated STS risk score was 30.1%. A wouvo-zv-tvtzz procedure was performed on the pre-existing bioprosthetic stented prosthesis. The priority of the gnpyh-mc-qdezu procedure wasElective. The procedure was performed under Moderate sedation performed byLynda Mcgowan M.D. (see anesthesia report for additional details). Alirio Hudson M.D. participated in the case (see Cardiac Surgery reportfor additional details). The TAVR sheath was a 14 Fr Corona eSheath Introducer and theaccess site was femoral. Rapid ventricular pacing was performed. An Corona Lai 3 Ultra RESILIA 23 mm THV (s/i=[id number])transcatheter valve was inserted using standard technique. The [...] prior to nor was it given inthe matlab developer. Recommended anti-platelet/anti-thrombotic regimen: Continue aspirin 81 mg daily for indefinitely. These recommendations are made at the time of the intervention.Patient and provider preferences or a changing clinical situation mayrequire modification of this regimen. Consult [facility] Interventional Cardiologyfor questions. Conclusions: * Nonobstructive disease [...] this regimen. Comments: Successful right transfemoral TAVR Ioyxs-uf-Wfiuo with a 23 mmSapien 3 THV. We [...] insertion-coronary, access site angiography, temporary pacemaker in matlab developer, intubation-non cath physician,vascular closure device, transthoracic echo and TAVR. Dr. Alirio Hudson M.D. performed the left heart catheterization, access site angiography, temporary pacemaker in matlab developer, vascular closure device,transthoracic echo , TAVR and [...] pH, POC 7.20(Crit ical) 7.35 - 7.45 [facility] Comment:Critical value OK, C C Lab. pCO2, POC 42 35 - 45 mmHg [facility] pO2, POC 260(H) 85 - 104 mmHg [facility] Base Excess, POC -11.0(L) -3.0 - 3.0 mmol/L [facility] Bicarbonate, POC 16.7(L) 20.0 - 26.0 mmol/L [facility] Sodium, POC 129(L) 135 - 145 mmol/L [facility] POC Potassium 3.8 3.5 - 5.0 mmol/L [facility] Ionized Calcium, POC 1.12(L) 1.15 - 1.33 mmol/L [facility] POC Hematocrit 23.0(L) 34.0 - 45.0 % [facility] POC Calc Hgb 7.8(L) 11.2 - 15.7 g/dL [facility] Comment:The calculation of h emoglobin from hematocrit assumes a normal MCHC. POC Bgas Loc CC Lab [facility] Blood 05/12/2023 8:50 AM EDT 05/13/2023 12:00 PM EDT Alirio Hudson MD CHEMISTRY ORDERABLE S [facility] [place] [address] * (ABNORMAL) Point of Care Blood Gas Historical (05/12/2023 8:10 AM EDT) pH, POC 7.27(Crit ical) 7.35 - 7.45 [facility] Comment:Critical value OK, C C Lab. pCO2, POC 37 35 - 45 mmHg [facility] pO2, POC 29(Critic al) 85 - 104 mmHg [facility] Comment:Critical value OK, C C Lab. Base Excess, POC -10.0(L) -3.0 - 3.0 mmol/L [facility] Bicarbonate, POC 16.7(L) 20.0 - 26.0 mmol/L [facility] Sodium, POC 123(L) 135 - 145 mmol/L [facility] POC Potassium 4.0 3.5 - 5.0 mmol/L [facility] Ionized Calcium, POC 1.12(L) 1.15 - 1.33 mmol/L [facility] POC Hematocrit 27.0(L) 34.0 - 45.0 % [facility] POC Calc Hgb 9.2(L) 11.2 - 15.7 g/dL [facility] Comment:The calculation of h emoglobin from hematocrit assumes a normal MCHC. POC Bgas Loc CC Lab [facility] Blood 05/12/2023 8:10 AM EDT 05/13/2023 12:00 PM EDT Alirio Hudson MD CHEMISTRY ORDERABLE S [facility] [place] [address] * (ABNORMAL) Lactate, whole blood, send to lab ([facility]) (05/12/2023 7:00 AM EDT) Lactate WB 2.4(H) 0.5 - 2.2 mmol/L [facility] Blood 05/12/2023 7:00 AM EDT 05/12/2023 7:09 AM EDT Narrative Resulting Agency Comment Spec In Lab Radha Hollins MD CHEMISTRY ORDERABL ES Performing Organization Address City/[facility]/ZIP Co de Phone Number [facility] [place] [address] * (ABNORMAL) Comprehensive metabolic panel (non-fasting) (05/12/2023 6:00 AM EDT) Glucose 167 65 - 199 mg/dL [facility] Comment:Diabetes: >=200 mg/d L plus symptoms Blood Urea Nitrogen 67(H) 8 - 18 mg/dL [facility] Creatinine 2.01(H) 0.70 - 1.20 mg/dL [facility] Sodium 131(L) 135 - 145 mmol/L [facility] Potassium 4.3 3.5 - 5.0 mmol/L [facility] Comment: Please note: ??Patients with WBC >100,000 may have falsely elevated Potassium levels. ??For accurate Potassium quantification in these patients send serum separator tube (gold top) for subsequent determinations. ??Contact the Clinical Chemistry Laboratory if there are any questions. Chloride 97(L) 98 - 107 mmol/L [facility] Carbon Dioxide 14(L) 22 - 31 mmol/L [facility] Anion Gap 20(H) 5 - 15 mmol/L [facility] Calcium 8.6 8.5 - 10.5 mg/dL [facility] Protein, Total 6.3 6.1 - 8.0 g/dL [facility] Albumin 3.5 3.2 - 5.2 g/dL [facility] Aspartate Aminotransferase 1,435(H) 0 - 30 unit/L [facility] Alanine Aminotransferase 1,174(H) 0 - 30 unit/L [facility] Alkaline Phosphatase 100 35 - 105 unit/L [facility] Bilirubin, Total 0.9 0.2 - 1.3 mg/dL [facility] Est Glomerular Filtration Rate 27(L) >=60 mL/min/1. 73 m?? [facility] Comment: This patient's estimated GFR [...] MD CHEMISTRY ORDERABL ES Performing Organization Address City/State/[facility] Co de Phone Number [facility] [place] [address] * (ABNORMAL) Coox2 (05/12/2023 5:08 AM EDT) pO2, Coox 24 mmHg [facility] Hgb Blood Gas 10.4(L) 11.7 - 15.5 g/dL [facility] Oxyhemoglobin, Coox 30.7 % [facility] Carboxyhemoglo bin, Coox 0.3 % [facility] Comment: Nonsmokers: 0.5-1.5% COHB Smokers: Variable, but usually less than 10% Toxic: 20-30% COHB Lethal: Greater than 60% COHB Methemoglobin, Coox 0.8 <=1.5 % [facility] Source Coox Mixed Venous [facility] Blood 05/12/2023 5:08 AM EDT 05/12/2023 5:08 AM EDT Radha Hollins MD POINT OF CARE TEST ORDERABLES Performing Organization Address [facility] Co de Phone Number [facility] [place] [address] * (ABNORMAL) Coox2 (05/12/2023 3:21 AM EDT) pO2, Coox 25 mmHg [facility] Hgb Blood Gas 10.8(L) 11.7 - 15.5 g/dL [facility] Oxyhemoglobin, Coox 32.7 % [facility] Carboxyhemoglo bin, Coox 0.3 % [facility] Comment: Nonsmokers: 0.5-1.5% COHB Smokers: Variable, but usually less than 10% Toxic: 20-30% COHB Lethal: Greater than 60% COHB Methemoglobin, Coox 0.7 <=1.5 % [facility] Source Coox Mixed Venous [facility] Blood 05/12/2023 3:21 AM EDT 05/12/2023 3:21 AM EDT Radha Hollins MD POINT OF CARE TEST ORDERABLES Performing Organization Address [facility] de Phone Number [facility] [place] [address] * (ABNORMAL) BLOOD GAS 2 ARTERIAL (05/12/2023 3:18 AM EDT) pH, Arterial 7.34(L) 7.35 - 7.45 [facility] PCO2, Arterial 30(L) 35 - 45 mmHg [facility] PO2, Arterial 72(L) 85 - 104 mmHg [facility] Bicarbonate, Arterial 16.0(L) 20.0 - 26.0 mmol/L [facility] Base Excess, Arterial -9.8(L) -3.0 - 3.0 mmol/L [facility] Hgb Blood Gas 11.0(L) 11.7 - 15.5 g/dL [facility] Oxyhemoglobin, Arterial 89.8(L) 94.0 - 97.0 % [facility] Carboxyhemoglob in, Arterial 0.3 % [facility] Comment: Nonsmokers: 0.5-1.5% COHB Smokers: Variable, but usually less than 10% Toxic: 20-30% COHB Lethal: Greater than 60% COHB Methemoglobin, Arterial 0.7 <=1.5 % [facility] Na Whole Blood 131(L) 135 - 145 mmol/L [facility] K Whole Blood 4.2 3.5 - 5.0 mmol/L [facility] Comment: Please note: Patients with WBC >100,000 may have falsely elevated Potassium levels. Contact the Clinical Chemistry Laboratory if there are any questions. ICa Whole Blood 1.12(L) 1.15 - 1.33 mmol/L [facility] Comment: Note: ??Total bilirubin higher than 20 mg/dL may lead to falsely low ionized calcium. CL Whole Blood 100 98 - 107 mmol/L [facility] Gluc Whole Bld 160 65 - 199 mg/dL [facility] Comment:Diabetes: >=200 mg/d L plus symptoms. Lactate WB 2.7(H) 0.5 - 2.2 mmol/L [facility] Flow Art 5.0 LPM [facility] Blood 05/12/2023 3:18 AM EDT 05/12/2023 3:18 AM EDT Radha Hollins MD POINT OF CARE TEST ORDERABLES Performing Organization Address City/State/[facility] Co de Phone Number [facility] [place] [address] * (ABNORMAL) Coox2 (05/12/2023 1:14 AM EDT) pO2, Coox 28 mmHg [facility] Hgb Blood Gas 10.9(L) 11.7 - 15.5 g/dL [facility] Oxyhemoglobin, Coox 37.3 % [facility] Carboxyhemoglo bin, Coox 0.3 % [facility] Comment: Nonsmokers: 0.5-1.5% COHB Smokers: Variable, but usually less than 10% Toxic: 20-30% COHB Lethal: Greater than 60% COHB Methemoglobin, Coox 0.5 <=1.5 % [facility] Source Coox Mixed Venous [facility] Blood 05/12/2023 1:14 AM EDT 05/12/2023 1:14 AM EDT Radha Hollins MD POINT OF CARE TEST ORDERABLES [facility] [place] [address] * (ABNORMAL) BLOOD GAS 2 ARTERIAL (05/12/2023 1:06 AM EDT) pH, Arterial 7.34(L) 7.35 - 7.45 [facility] PCO2, Arterial 30(L) 35 - 45 mmHg [facility] PO2, Arterial 81(L) 85 - 104 mmHg [facility] Bicarbonate, Arterial 15.7(L) 20.0 - 26.0 mmol/L [facility] Base Excess, Arterial -10.1(L) -3.0 - 3.0 mmol/L [facility] Hgb Blood Gas 11.0(L) 11.7 - 15.5 g/dL [facility] Oxyhemoglobin, Arterial 92.3(L) 94.0 - 97.0 % [facility] Carboxyhemoglob in, Arterial 0.2 % [facility] Comment: Nonsmokers: 0.5-1.5% COHB Smokers: Variable, but usually less than 10% Toxic: 20-30% COHB Lethal: Greater than 60% COHB Methemoglobin, Arterial 0.6 <=1.5 % [facility] Na Whole Blood 131(L) 135 - 145 mmol/L [facility] K Whole Blood 4.2 3.5 - 5.0 mmol/L [facility] Comment: Please note: Patients with WBC >100,000 may have falsely elevated Potassium levels. Contact the Clinical Chemistry Laboratory if there are any questions. ICa Whole Blood 1.13(L) 1.15 - 1.33 mmol/L [facility] Comment: Note: ??Total bilirubin higher than 20 mg/dL may lead to falsely low ionized calcium. CL Whole Blood 99 98 - 107 mmol/L [facility] Gluc Whole Bld 132 65 - 199 mg/dL [facility] Comment:Diabetes: >=200 mg/d L plus symptoms. Lactate WB 2.7(H) 0.5 - 2.2 mmol/L [facility] Flow Art 5.0 LPM [facility] Blood 05/12/2023 1:06 AM EDT 05/12/2023 1:06 AM EDT Radha Hollins MD POINT OF CARE TEST ORDERABLES [facility] [place] [address] * (ABNORMAL) Differential, Automated (05/12/2023 1:05 AM EDT) Neutrophil % 83.3 % [facility] Neutrophil Absolute 7.49(H) 1.70 - 6.10 x10(3)/mc L [facility] Lymph % 7.1 % [facility] Lymphocytes Abs 0.6(L) 0.9 - 3.2 x10(3)/mc L [facility] Monocyte % 8.9 % [facility] Monocyte Abs 0.8 0.3 - 0.9 x10(3)/mc L [facility] Eos % 0.0 % [facility] Eosinophils Abs 0.0 0.0 - 0.4 x10(3)/mc L [facility] Basophil % 0.1 % [facility] Baso Absolute 0.0 0.0 - 0.1 x10(3)/mc L [facility] Immature Gran % 0.60 % [facility] Comment: Immature granulocytes(IG's)percentage and absolute count will include metamyelocytes, myelocytes, and promyelocytes. Blood smears from CBCs yielding IG's will be scanned manually for concordance. If this scan disagrees with the automated IG or if promyelocytes are noted, a manual differential will be performed. Immature Gran Absolute 0.05(H) 0.00 - 0.04 x10(3)/mc L [facility] Blood 05/12/2023 1:05 AM EDT 05/12/2023 1:15 AM EDT Narrative Resulting Agency Comment Spec In Lab Gianni Fletcher MD HEMATOLOGY ORDERABLE S [facility] [place] [address] * (ABNORMAL) Hemogram (05/12/2023 1:05 AM EDT) White Blood Cell 9.0 4.0 - 9.5 x10(3)/mc L [facility] Red Blood Cell 3.01(L) 4.00 - 5.21 x10(6)/mc L [facility] Hemoglobin 9.8(L) 11.7 - 15.5 g/dL [facility] Hematocrit 28.7(L) 35.7 - 45.8 % [facility] Mean Cell Volume 95.3(H) 82.6 - 94.4 fL [facility] Mean Cell Hemoglobin 32.6(H) 27.1 - 32.0 pg [facility] Mean Cell Hemoglobin Concentration 34.1 31.7 - 35.0 g/dL [facility] Platelet 186 145 - 357 x10(3)/mc L [facility] RDW Standard Deviation 43.7 37.0 - 46.0 fL [facility] RDW coefficient of variation 12.7 11.5 - 14.1 % [facility] Mean Platelet Volume 10.3 7.6 - 12.9 fL [facility] NRBC% auto 0.0 % [facility] NRBC Absolute 0.000 0.000 - 0.000 x10(3)/ L [facility] Blood 05/12/2023 1:05 AM EDT 05/12/2023 1:15 AM EDT Narrative Resulting Agency Comment Spec In Lab Gianni Fletcher MD HEMATOLOGY ORDERABLE S [facility] [place] [address] * (ABNORMAL) Comprehensive metabolic panel (non-fasting) (05/12/2023 1:05 AM EDT) Glucose 141 65 - 199 mg/dL [facility] Comment:Diabetes: >=200 mg/d L plus symptoms Blood Urea Nitrogen 63(H) 8 - 18 mg/dL [facility] Creatinine 1.86(H) 0.70 - 1.20 mg/dL [facility] Sodium 131(L) 135 - 145 mmol/L [facility] Potassium 4.4 3.5 - 5.0 mmol/L [facility] Comment: Please note: ??Patients with WBC >100,000 may have falsely elevated Potassium levels. ??For accurate Potassium quantification in these patients send serum separator tube (gold top) for subsequent determinations. ??Contact the Clinical Chemistry Laboratory if there are any questions. Chloride 96(L) 98 - 107 mmol/L [facility] Carbon Dioxide 14(L) 22 - 31 mmol/L [facility] Anion Gap 21(H) 5 - 15 mmol/L [facility] Calcium 9.0 8.5 - 10.5 mg/dL [facility] Protein, Total 6.6 6.1 - 8.0 g/dL [facility] Albumin 3.9 3.2 - 5.2 g/dL [facility] Aspartate Aminotransferase 1,227(H) 0 - 30 unit/L [facility] Alanine Aminotransferase 1,097(H) 0 - 30 unit/L [facility] Alkaline Phosphatase 108(H) 35 - 105 unit/L [facility] Bilirubin, Total 1.0 0.2 - 1.3 mg/dL [facility] Est Glomerular Filtration Rate 29(L) >=60 mL/min/1. 73 m?? [facility] Comment: This patient's estimated GFR [...] Lab Radha Hollins MD CHEMISTRY ORDERABL ES [facility] [place] [address] * XR Chest One View (05/12/2023 1:00 [...] who have questions please contact the health resident care manager rn that requested your imaging first. ? Narrative [...] patients who have questions please contactthe health resident care manager rn that requested your imaging first. Radha Hollins MD IMG DX ORDERABLES * (ABNORMAL) Coox2 (05/12/2023 12:30 AM EDT) pO2, Coox 22 mmHg [facility] Hgb Blood Gas 10.9(L) 11.7 - 15.5 g/dL [facility] Oxyhemoglobin, Coox 25.1 % [facility] Carboxyhemoglo bin, Coox 0.3 % [facility] Comment: Nonsmokers: 0.5-1.5% COHB Smokers: Variable, but usually less than 10% Toxic: 20-30% COHB Lethal: Greater than 60% COHB Methemoglobin, Coox 1.4 <=1.5 % [facility] Source Coox Mixed Venous [facility] Blood 05/12/2023 12:3 0 AM EDT 05/12/2023 12:30 AM EDT Radha Hollins MD POINT OF CARE TEST ORDERABLES [facility] [place] [address] * XR Chest One View (05/11/2023 11:45 [...] who have questions please contact the health resident care manager rn that requested your imaging first. ? Narrative [...] patients who have questions please contactthe health resident care manager rn that requested your imaging first. Radha Hollins MD IMG DX ORDERABLES * (ABNORMAL) Lactate, whole blood, send to lab ([facility]) (05/11/2023 7:40 PM EDT) Lactate WB 4.8(Critic al) 0.5 - 2.2 mmol/L [facility] Comment:Called by: NIKI, Read back by: Magdalena Baires, Date/Time:05/11/23 19:54. Blood 05/11/2023 7:40 PM EDT 05/11/2023 7:49 PM EDT Narrative Resulting Agency Comment Spec In Lab Radha Hollins MD CHEMISTRY ORDERABL ES Performing Organization Address [facility] Co de Phone Number [facility] [place] [address] * Urine culture (05/11/2023 7:22 PM EDT) Urine Culture 50,000-99,000 cfu/ml Normal mucosal herman Susceptibilit y testing not routinely performed for Coagulase Negative Staphylococcu s species and other Gram Positive organisms from urine. [facility] Clean Catch Urine 05/11/2023 7:22 PM EDT 05/11/2023 8:50 PM EDT Narrative Resulting Agency Comment Spec In Lab Brody Dale Eusebio OSBORN MICROBIOLOGY - GENE RAL ORDERABLES Performing Organization Address [facility] de Phone Number [facility] [place] [address] * (ABNORMAL) Urinalysis Microscopic Exam (05/11/2023 7:22 PM EDT) RBC, Urine 2 0 - 4 /HPF [facility] WBC, Urine >100(H) 0 - 5 /HPF [facility] Bacteria, Urine Occasional (A) None /HPF [facility] Squamous Epithelial Cells Raw Data, Urine 5(H) <=4 /HPF [facility] Hyaline Casts, Urine 3(H) 0 - 2 /LPF [facility] Clean Catch Urine 05/11/2023 7:22 PM EDT 05/11/2023 7:31 PM EDT Narrative Resulting Agency Comment Spec In Lab Brody Kaplan APRN URINE ORDERABLES Performing Organization Address [facility] Co de Phone Number [facility] [place] [address] * (ABNORMAL) Urinalysis with reflex Culture (05/11/2023 7:22 PM EDT) Glucose, Urine Dipstick Negative Negative mg/dL [facility] Protein, Urine Dipstick Trace(A) Negative mg/dL [facility] Bilirubin, Urine Dipstick Negative Negative mg/dL [facility] Comment: Clinical correlation required for positive Urine Bilirubin results as false positive may occur with some drugs and drug related products. If a false positive is suspected a serum total bilirubin should be considered if clinically indicated. Urobilinogen, Urine Dipstick Normal Normal mg/dL [facility] pH, Urn (dipstick) 5.0 5.0 - 8.0 [facility] Blood, Urine Dipstick Trace(A) Negative mg/dL [facility] Ketone, Urine Dipstick Negative Negative mg/dL [facility] Nitrite, Urine Dipstick Negative Negative [facility] Leukocytes, Urine Dipstick Moderate(A) Negative mcL [facility] Appearance, Urine Dipstick Cloudy(A) Clear [facility] Specific Muir Urine Automated >=1.030(A) 1.005 - 1.030 [facility] Color, Urine Dipstick Yellow Yellow [facility] Reflex to Culture Yes [facility] Clean Catch Urine 05/11/2023 7:22 PM EDT 05/11/2023 7:31 PM EDT Narrative Resulting Agency Comment Spec In Lab Brody Kaplan APRN URINE ORDERABLES Performing Organization Address [facility] Co de Phone Number [facility] [place] [address] * (ABNORMAL) pro-Brain Natriuretic Peptide (05/11/2023 7:11 PM EDT) NT-proBNP >35,000(H) <=124 pg/mL [facility] Blood 05/11/2023 7:11 PM EDT 05/11/2023 7:26 PM EDT Narrative Resulting Agency Comment Spec In Lab Radha Hollins MD CHEMISTRY ORDERABL ES Performing Organization Address City/[facility] Co de Phone Number [facility] [place] [address] * (ABNORMAL) Lactate, whole blood, send to lab ([facility]) (05/11/2023 2:47 PM EDT) Lactate WB 2.9(H) 0.5 - 2.2 mmol/L [facility] Blood 05/11/2023 2:47 PM EDT 05/11/2023 2:53 PM EDT Narrative Resulting Agency Comment Spec In Lab Juan Luis Gonzalez MD CHEMISTRY ORDERABLES Performing Organization Address City/State/[facility] Co de Phone Number [facility] [place] [address] * (ABNORMAL) CT Angiogram Abdomen & Pelvis [...] who have questions please contact the health resident care manager rn that requested your imaging first. ? Narrative [...] who have questions please contact the health resident care manager rn that requested your imaging first. ? Narrative [...] 610 mm2 Circumference: 88 mm Calcification: Mild Bytslga-xh-bsauarvs height: Left: 6.2 mm Right: 5.8 mm THORACIC AORTA Description: Normal course and caliber. ??Mild diffuse atherosclerotic changes. No acute aortopathy noted. Human Service Coordinator dimensions: Aortic root: 27.6 mm Max ascending aorta: 30.5 mm x 27.7 mm Suggested fluoroscopic angulation based on line extending through the nadirs of the three sinuses of Valsalva, set equidistant: ?? BRAZILIAN ??9 degrees; cranial 7 degrees MITRAL: Mitral [...] 610 mm2 Circumference: 88 mm Calcification: Mild Yitcchu-ah-fosfaqxc height: Left: 6.2 mm Right: 5.8 mm THORACIC AORTA Description: Normal course and caliber. Mild diffuse atheroscleroticchanges. No acute aortopathy noted. Human Service Coordinator dimensions: Aortic root: 27.6 mm Max ascending aorta: 30.5 mm x 27.7 mm Suggested fluoroscopic angulation based on line extending through thenadirs of the three sinuses of Valsalva, set equidistant: BRAZILIAN 9 degrees; cranial 7 degrees MITRAL: Mitral [...] patients who have questions please contactthe health resident care manager rn that requested your imaging first. Antelmo Sharma MD IMG CT ORDERABLES * (ABNORMAL) Lactate, whole blood, send to lab ([facility]) (05/11/2023 9:29 AM EDT) Lactate WB 3.1(H) 0.5 - 2.2 mmol/L [facility] Blood 05/11/2023 9:29 AM EDT 05/11/2023 9:38 AM EDT Narrative Resulting Agency Comment Spec In Lab Juan Luis Gonzalez MD CHEMISTRY ORDERABLES [facility] [place] [address] * (ABNORMAL) Differential, Automated (05/11/2023 4:42 AM EDT) Neutrophil % 78.1 % [facility] Neutrophil Absolute 5.46 1.70 - 6.10 x10(3)/mc L [facility] Lymph % 10.6 % [facility] Lymphocytes Abs 0.7(L) 0.9 - 3.2 x10(3)/mc L [facility] Monocyte % 9.6 % [facility] Monocyte Abs 0.7 0.3 - 0.9 x10(3)/mc L [facility] Eos % 0.0 % [facility] Eosinophils Abs 0.0 0.0 - 0.4 x10(3)/mc L [facility] Basophil % 0.4 % [facility] Baso Absolute 0.0 0.0 - 0.1 x10(3)/mc L [facility] Immature Gran % 1.30 % [facility] Comment: Immature granulocytes(IG's)percentage and absolute count will include metamyelocytes, myelocytes, and promyelocytes. Blood smears from CBCs yielding IG's will be scanned manually for concordance. If this scan disagrees with the automated IG or if promyelocytes are noted, a manual differential will be performed. Immature Gran Absolute 0.09(H) 0.00 - 0.04 x10(3)/mc L [facility] Blood 05/11/2023 4:42 AM EDT 05/11/2023 4:49 AM EDT Narrative Resulting Agency Comment Spec In Lab Klaudia Reid MD HEMATOLOGY OR DERABLES [facility] [place] [address] * (ABNORMAL) Hemogram (05/11/2023 4:42 AM EDT) White Blood Cell 7.0 4.0 - 9.5 x10(3)/mc L [facility] Red Blood Cell 3.44(L) 4.00 - 5.21 x10(6)/mc L [facility] Hemoglobin 11.1(L) 11.7 - 15.5 g/dL [facility] Hematocrit 32.7(L) 35.7 - 45.8 % [facility] Mean Cell Volume 95.1(H) 82.6 - 94.4 fL [facility] Mean Cell Hemoglobin 32.3(H) 27.1 - 32.0 pg [facility] Mean Cell Hemoglobin Concentration 33.9 31.7 - 35.0 g/dL [facility] Platelet 165 145 - 357 x10(3)/mc L [facility] RDW Standard Deviation 43.1 37.0 - 46.0 fL [facility] RDW coefficient of variation 12.7 11.5 - 14.1 % [facility] Mean Platelet Volume 10.1 7.6 - 12.9 fL [facility] NRBC% auto 0.0 % [facility] NRBC Absolute 0.000 0.000 - 0.000 x10(3)/mc L [facility] Blood 05/11/2023 4:42 AM EDT 05/11/2023 4:49 AM EDT Narrative Resulting Agency Comment Spec In Lab Klaudia Reid MD HEMATOLOGY OR DERABLES Performing Organization Address [facility] Co de Phone Number [facility] [place] [address] * Heparin (unfractionated) Level (05/11/2023 4:42 AM EDT) UF Heparin 0.46 IU/mL [facility] Comment: Heparin [...] Address [facility] Co de Phone Number [facility] [place] [address] * (ABNORMAL) Comprehensive metabolic panel (non-fasting) (05/11/2023 4:42 AM EDT) Pathologist [facility] Glucose 143 65 - 199 mg/dL [facility] Comment:Diabetes: >=200 mg/d L plus symptoms Blood Urea Nitrogen 42(H) 8 - 18 mg/dL [facility] Creatinine 1.24(H) 0.70 - 1.20 mg/dL [facility] Sodium 134(L) 135 - 145 mmol/L [facility] Potassium 4.6 3.5 - 5.0 mmol/L [facility] Comment: Please note: ??Patients with WBC >100,000 may have falsely elevated Potassium levels. ??For accurate Potassium quantification in these patients send serum separator tube (gold top) for subsequent determinations. ??Contact the Clinical Chemistry Laboratory if there are any questions. Chloride 99 98 - 107 mmol/L [facility] Carbon Dioxide 14(L) 22 - 31 mmol/L [facility] Anion Gap 21(H) 5 - 15 mmol/L [facility] Calcium 9.6 8.5 - 10.5 mg/dL [facility] Protein, Total 7.2 6.1 - 8.0 g/dL [facility] Albumin 3.7 3.2 - 5.2 g/dL [facility] Aspartate Aminotransferase 144(H) 0 - 30 unit/L [facility] Comment:result rechecked-ssc Alanine Aminotransferase 130(H) 0 - 30 unit/L [facility] Comment:result rechecked-ssc Alkaline Phosphatase 72 35 - 105 unit/L [facility] Bilirubin, Total 0.8 0.2 - 1.3 mg/dL [facility] Est Glomerular Filtration Rate 48(L) >=60 mL/min/1. 73 m?? [facility] Comment: This patient's estimated GFR [...] Lab Radha Hollins MD CHEMISTRY ORDERABL ES [facility] [place] [address] * EKG 12 Lead (05/10/2023 1:16 PM EDT) Ventricular rate 118 BPM MUSE SYSTEM Atrial Rate 118 BPM MUSE SYSTEM P-R Interval 152 ms MUSE SYSTEM QRS Duration 104 ms MUSE SYSTEM Q-T Interval 316 ms MUSE SYSTEM QTC Calculated (Bezet) 442 ms MUSE SYSTEM Calculated P [place] 29 degrees MUSE SYSTEM Calculated R [place] 18 degrees MUSE SYSTEM Calculated T [place] -173 degrees MUSE SYSTEM INTERPRETATION Sinus tachycardia Minimal voltage criteria for LVH, may be normal variant ( [place] product ) Septal infarct , age undetermined ST & T wave abnormality, consider lateral ischemia Abnormal ECG When compared with ECG of 10-MAY-2023 07:59, Fusion complexes are no longer Present Premature ventricular complexes are no longer Present ST no longer depressed in Anterior leads Confirmed by MD Villareal Danette ([id number]) on 05/10/2023 8:47:46 PM MUSE SYSTEM 05/10/2023 1:16 PM EDT 05/10/2023 8:47 PM EDT Juan Luis Gonzalez MD ECG ORDERABLES MUSE SYSTEM * Lactate, whole blood, send to lab ([facility]) (05/10/2023 11:52 AM EDT) Lactate WB 1.8 0.5 - 2.2 mmol/L [facility] Blood 05/10/2023 11:5 2 AM EDT 05/10/2023 12:13 PM EDT Narrative Resulting Agency Comment Spec In Lab Juan Luis Gonzalez MD CHEMISTRY ORDERABLES [facility] [place] [address] * XR Chest One View (05/10/2023 11:16 [...] who have questions please contact the health resident care manager rn that requested your imaging first. ? Narrative [...] patients who have questions please contactthe health resident care manager rn that requested your imaging first. Juan Luis Gonzalez MD IMG DX ORDERABLES * EKG 12 Lead (05/10/2023 7:59 AM EDT) Ventricular rate 115 BPM MUSE SYSTEM Atrial Rate 115 BPM MUSE SYSTEM P-R Interval 142 ms MUSE SYSTEM QRS Duration 102 ms MUSE SYSTEM Q-T Interval 322 ms MUSE SYSTEM QTC Calculated (Bezet) 445 ms MUSE SYSTEM Calculated P [place] 36 degrees MUSE SYSTEM Calculated R [place] 28 degrees MUSE SYSTEM Calculated T [place] -119 degrees MUSE SYSTEM INTERPRETATION Sinus tachycardia [...] Differential, Automated (05/10/2023 2:28 AM EDT) Pathologist [facility] Neutrophil % 77.1 % [facility] Neutrophil Absolute 4.01 1.70 - 6.10 x10(3)/mc L [facility] Lymph % 14.0 % [facility] Lymphocytes Abs 0.7(L) 0.9 - 3.2 x10(3)/mc L [facility] Monocyte % 7.7 % [facility] Monocyte Abs 0.4 0.3 - 0.9 x10(3)/mc L [facility] Eos % 0.4 % [facility] Eosinophils Abs 0.0 0.0 - 0.4 x10(3)/mc L [facility] Basophil % 0.4 % [facility] Baso Absolute 0.0 0.0 - 0.1 x10(3)/mc L [facility] Immature Gran % 0.40 % [facility] Comment: Immature granulocytes(IG's)percentage and absolute count will include metamyelocytes, myelocytes, and promyelocytes. Blood smears from CBCs yielding IG's will be scanned manually for concordance. If this scan disagrees with the automated IG or if promyelocytes are noted, a manual differential will be performed. Immature Gran Absolute 0.02 0.00 - 0.04 x10(3)/mc L [facility] Blood 05/10/2023 2:28 AM EDT 05/10/2023 2:57 AM EDT Narrative Resulting Agency Comment Spec In Lab Klaudia Reid MD HEMATOLOGY OR DERABLES [facility] [place] [address] * (ABNORMAL) Hemogram (05/10/2023 2:28 AM EDT) White Blood Cell 5.2 4.0 - 9.5 x10(3)/mc L [facility] Red Blood Cell 3.11(L) 4.00 - 5.21 x10(6)/mc L [facility] Hemoglobin 10.2(L) 11.7 - 15.5 g/dL [facility] Hematocrit 30.2(L) 35.7 - 45.8 % [facility] Mean Cell Volume 97.1(H) 82.6 - 94.4 fL [facility] Mean Cell Hemoglobin 32.8(H) 27.1 - 32.0 pg [facility] Mean Cell Hemoglobin Concentration 33.8 31.7 - 35.0 g/dL [facility] Platelet 151 145 - 357 x10(3)/mc L [facility] RDW Standard Deviation 44.9 37.0 - 46.0 fL [facility] RDW coefficient of variation 12.8 11.5 - 14.1 % [facility] Mean Platelet Volume 9.8 7.6 - 12.9 fL [facility] NRBC% auto 0.0 % [facility] NRBC Absolute 0.000 0.000 - 0.000 x10(3)/mc L [facility] Blood 05/10/2023 2:28 AM EDT 05/10/2023 2:57 AM EDT Narrative Resulting Agency Comment Spec In Lab Klaudia Reid MD HEMATOLOGY OR DERABLES [facility] [address] [place] [address] * (ABNORMAL) Comprehensive metabolic panel (non-fasting) (05/10/2023 2:28 AM EDT) Glucose 100 65 - 199 mg/dL [facility] Comment:Diabetes: >=200 mg/d L plus symptoms Blood Urea Nitrogen 30(H) 8 - 18 mg/dL [facility] Creatinine 0.90 0.70 - 1.20 mg/dL [facility] Sodium 134(L) 135 - 145 mmol/L [facility] Potassium 4.1 3.5 - 5.0 mmol/L [facility] Comment: Please note: ??Patients with WBC >100,000 may have falsely elevated Potassium levels. ??For accurate Potassium quantification in these patients send serum separator tube (gold top) for subsequent determinations. ??Contact the Clinical Chemistry Laboratory if there are any questions. Chloride 102 98 - 107 mmol/L [facility] Carbon Dioxide 20(L) 22 - 31 mmol/L [facility] Anion Gap 12 5 - 15 mmol/L [facility] Calcium 9.3 8.5 - 10.5 mg/dL [facility] Protein, Total 6.4 6.1 - 8.0 g/dL [facility] Albumin 3.7 3.2 - 5.2 g/dL [facility] Aspartate Aminotransferase 24 0 - 30 unit/L [facility] Alanine Aminotransferase 14 0 - 30 unit/L [facility] Alkaline Phosphatase 70 35 - 105 unit/L [facility] Bilirubin, Total 0.5 0.2 - 1.3 mg/dL [facility] Est Glomerular Filtration Rate 70 >=60 mL/min/1. 73 m?? [facility] Comment: This patient's estimated GFR [...] Address [facility] [place] [address] * Heparin (unfractionated) Level (05/10/2023 2:28 AM EDT) UF Heparin 0.37 IU/mL [facility] Comment: Heparin [...] Address [facility]/ZIP Co de Phone Number [facility] [place] [address] * (ABNORMAL) Differential, Automated (05/09/2023 4:00 AM EDT) Neutrophil % 81.7 % [facility] Neutrophil Absolute 5.26 1.70 - 6.10 x10(3)/mc L [facility] Lymph % 10.7 % [facility] Lymphocytes Abs 0.7(L) 0.9 - 3.2 x10(3)/mc L [facility] Monocyte % 6.5 % [facility] Monocyte Abs 0.4 0.3 - 0.9 x10(3)/ L [facility] Eos % 0.5 % [facility] Eosinophils Abs 0.0 0.0 - 0.4 x10(3)/mc L [facility] Basophil % 0.3 % [facility] Baso Absolute 0.0 0.0 - 0.1 x10(3)/ L [facility] Immature Gran % 0.30 % [facility] Comment: Immature granulocytes(IG's)percentage and absolute count will include metamyelocytes, myelocytes, and promyelocytes. Blood smears from CBCs yielding IG's will be scanned manually for concordance. If this scan disagrees with the automated IG or if promyelocytes are noted, a manual differential will be performed. Immature Gran Absolute 0.02 0.00 - 0.04 x10(3)/ L [facility] Blood 05/09/2023 4:00 AM EDT 05/09/2023 4:19 AM EDT Narrative Resulting Agency Comment Spec In Lab Klaudia Reid MD HEMATOLOGY OR DERABLES Performing Organization Address City/State/[facility] Co de Phone Number [facility] [place] [address] * (ABNORMAL) Hemogram (05/09/2023 4:00 AM EDT) White Blood Cell 6.4 4.0 - 9.5 x10(3)/mc L [facility] Red Blood Cell 3.15(L) 4.00 - 5.21 x10(6)/mc L [facility] Hemoglobin 10.2(L) 11.7 - 15.5 g/dL [facility] Hematocrit 30.3(L) 35.7 - 45.8 % [facility] Mean Cell Volume 96.2(H) 82.6 - 94.4 fL [facility] Mean Cell Hemoglobin 32.4(H) 27.1 - 32.0 pg [facility] Mean Cell Hemoglobin Concentration 33.7 31.7 - 35.0 g/dL [facility] Platelet 151 145 - 357 x10(3)/mc L [facility] RDW Standard Deviation 44.7 37.0 - 46.0 fL [facility] RDW coefficient of variation 12.8 11.5 - 14.1 % [facility] Mean Platelet Volume 9.4 7.6 - 12.9 fL [facility] NRBC% auto 0.0 % [facility] NRBC Absolute 0.000 0.000 - 0.000 x10(3)/mc L [facility] Blood 05/09/2023 4:00 AM EDT 05/09/2023 4:19 AM EDT Narrative Resulting Agency Comment Spec In Lab Klaudia Reid MD HEMATOLOGY OR DERABLES [facility] [place] [address] * Heparin (unfractionated) Level (05/09/2023 4:00 AM EDT) UF Heparin 0.47 IU/mL [facility] Comment: Heparin (anti-Xa) levels [...] Lab Radha Hollins MD HEMATOLOGY ORDERAB LES [facility] [place] [address] * (ABNORMAL) Comprehensive metabolic panel (non-fasting) (05/09/2023 4:00 AM EDT) Glucose 108 65 - 199 mg/dL [facility] Comment:Diabetes: >=200 mg/d L plus symptoms Blood Urea Nitrogen 31(H) 8 - 18 mg/dL [facility] Creatinine 1.03 0.70 - 1.20 mg/dL [facility] Sodium 137 135 - 145 mmol/L [facility] Potassium 4.4 3.5 - 5.0 mmol/L [facility] Comment: Please note: ??Patients with WBC >100,000 may have falsely elevated Potassium levels. ??For accurate Potassium quantification in these patients send serum separator tube (gold top) for subsequent determinations. ??Contact the Clinical Chemistry Laboratory if there are any questions. Chloride 102 98 - 107 mmol/L [facility] Carbon Dioxide 20(L) 22 - 31 mmol/L [facility] Anion Gap 15 5 - 15 mmol/L [facility] Calcium 9.3 8.5 - 10.5 mg/dL [facility] Protein, Total 6.6 6.1 - 8.0 g/dL [facility] Albumin 3.8 3.2 - 5.2 g/dL [facility] Aspartate Aminotransferase 32(H) 0 - 30 unit/L [facility] LABORATORY Alanine Aminotransferase 18 0 - 30 unit/L [facility] Alkaline Phosphatase 78 35 - 105 unit/L [facility] Bilirubin, Total 0.5 0.2 - 1.3 mg/dL [facility] Est Glomerular Filtration Rate 60 >=60 mL/min/1. 73 m?? [facility] Comment: This patient's estimated GFR [...] Address [facility]/ZIP Co de Phone Number [facility] [place] [address] * (ABNORMAL) pro-Brain Natriuretic Peptide (05/08/2023 4:00 PM EDT) NT-proBNP 25,503(H) <=124 pg/mL [facility] Blood Venous Draw / Unknown 05/08/2023 4:00 PM EDT 05/08/2023 4:25 PM EDT Narrative Resulting Agency Comment Spec In Lab Juan Luis Gonzalez MD CHEMISTRY ORDERABLES Performing Organization Address [facility] Co de Phone Number [facility] [place] [address] * Magnesium (05/08/2023 4:00 PM EDT) Magnesium 0.82 0.69 - 1.07 mmol/L [facility] Blood 05/08/2023 4:00 PM EDT 05/08/2023 4:06 PM EDT Narrative Resulting Agency Comment Spec In Lab Enrique Chua MD CHEMISTRY ORDERABLES Performing Organization Address [facility] Co de Phone Number [facility] [place] [address] * Potassium (05/08/2023 4:00 PM EDT) Potassium 3.9 3.5 - 5.0 mmol/L [facility] Comment: Please note: ??Patients with [...] MD CHEMISTRY ORDERABL ES Performing Organization Address [facility] de Phone Number [facility] [place] [address] * Heparin (unfractionated) Level (05/08/2023 4:00 PM EDT) Pathologist [facility] UF Heparin 0.43 IU/mL [facility] Comment: Heparin [...] MD HEMATOLOGY ORDERAB LES Performing Organization Address [facility] Co de Phone Number [facility] [place] [address] * EKG 12 Lead (05/08/2023 3:51 PM EDT) Ventricular rate 98 BPM MUSE SYSTEM Atrial Rate 98 BPM MUSE SYSTEM P-R Interval 150 ms MUSE SYSTEM QRS Duration 102 ms MUSE SYSTEM Q-T Interval 358 ms MUSE SYSTEM QTC Calculated (Bezet) 457 ms MUSE SYSTEM Calculated P [place] 38 degrees MUSE SYSTEM Calculated R [place] 48 degrees MUSE SYSTEM Calculated T [place] -112 degrees MUSE SYSTEM INTERPRETATION Sinus rhythm with frequent and consecutive Premature ventricular and fusion complexes Septal infarct , age undetermined ST & T wave abnormality, consider anterolateral ischemia Abnormal ECG When compared with ECG of 09-NOV-2022 11:17, T wave inversion now evident in Anterolateral leads Confirmed by MD Harshil, Enrique Bell ([id number]) on 05/10/2023 8:11:46 AM MUSE SYSTEM 05/08/2023 3:51 PM EDT 05/10/2023 8:11 AM EDT Radha Hollins MD ECG ORDERABLES MUSE SYSTEM * (ABNORMAL) Differential, Automated (05/08/2023 11:38 AM EDT) Neutrophil % 71.3 % [facility] Neutrophil Absolute 2.91 1.70 - 6.10 x10(3)/mc L [facility] Lymph % 19.1 % [facility] Lymphocytes Abs 0.8(L) 0.9 - 3.2 x10(3)/mc L [facility] Monocyte % 9.0 % [facility] Monocyte Abs 0.4 0.3 - 0.9 x10(3)/mc L [facility] Eos % 0.2 % [facility] Eosinophils Abs 0.0 0.0 - 0.4 x10(3)/mc L [facility] Basophil % 0.2 % [facility] Baso Absolute 0.0 0.0 - 0.1 x10(3)/mc L [facility] Immature Gran % 0.20 % [facility] Comment: Immature granulocytes(IG's)percentage and absolute count will include metamyelocytes, myelocytes, and promyelocytes. Blood smears from CBCs yielding IG's will be scanned manually for concordance. If this scan disagrees with the automated IG or if promyelocytes are noted, a manual differential will be performed. Immature Gran Absolute 0.01 0.00 - 0.04 x10(3)/mc L [facility] Blood 05/08/2023 11:3 8 AM EDT 05/08/2023 11:44 AM EDT Narrative Resulting Agency Comment Spec In Lab Lincoln Sal MD HEMATOLOGY ORDERA BLES [facility] [place] [address] * (ABNORMAL) Hemogram (05/08/2023 11:38 AM EDT) White Blood Cell 4.1 4.0 - 9.5 x10(3)/mc L [facility] Red Blood Cell 3.05(L) 4.00 - 5.21 x10(6)/mc L [facility] Hemoglobin 10.2(L) 11.7 - 15.5 g/dL [facility] Hematocrit 29.6(L) 35.7 - 45.8 % [facility] Mean Cell Volume 97.0(H) 82.6 - 94.4 fL [facility] Mean Cell Hemoglobin 33.4(H) 27.1 - 32.0 pg [facility] Mean Cell Hemoglobin Concentration 34.5 31.7 - 35.0 g/dL [facility] Platelet 136(L) 145 - 357 x10(3)/mc L [facility] RDW Standard Deviation 44.3 37.0 - 46.0 fL [facility] RDW coefficient of variation 12.6 11.5 - 14.1 % [facility] Mean Platelet Volume 9.4 7.6 - 12.9 fL [facility] NRBC% auto 0.0 % [facility] NRBC Absolute 0.000 0.000 - 0.000 x10(3)/ L [facility] Blood 05/08/2023 11:3 8 AM EDT 05/08/2023 11:44 AM EDT Narrative Resulting Agency Comment Spec In Lab Lincoln Sal MD HEMATOLOGY ORDERA BLES [facility] [place] [address] * TSH (05/08/2023 11:38 AM EDT) Thyroid Stimulating Hormone 1.27 0.27 - 4.20 mcIU/mL [facility] Comment: Reference Interval (mcIU/mL): Females: ??First Trimester: 0.23-3.88 ??Second Trimester: 0.22-3.90 ??Third Trimester: 0.44-4.66 Blood 05/08/2023 11:3 8 AM EDT 05/08/2023 11:44 AM EDT Narrative Resulting Agency Comment Spec In Lab Enrique Chua MD CHEMISTRY ORDERABLES Performing Organization Address City/[facility]/ZIP Co de Phone Number [facility] [place] [address] * (ABNORMAL) Phosphorus (05/08/2023 11:38 AM EDT) Phosphorus 4.7(H) 2.5 - 4.5 mg/dL [facility] Blood 05/08/2023 11:3 8 AM EDT 05/08/2023 11:44 AM EDT Narrative Resulting Agency Comment Spec In Lab Enrique Chua MD CHEMISTRY ORDERABLES Performing Organization Address [facility] Co de Phone Number [facility] [place] [address] * Magnesium (05/08/2023 11:38 AM EDT) Magnesium 0.76 0.69 - 1.07 mmol/L [facility] Blood 05/08/2023 11:3 8 AM EDT 05/08/2023 11:44 AM EDT Narrative Resulting Agency Comment Spec In Lab Enrique Chua MD CHEMISTRY ORDERABLES Performing Organization Address [facility] Co de Phone Number [facility] [place] [address] * (ABNORMAL) Basic Metabolic Panel (non-fasting) (05/08/2023 11:38 AM EDT) Glucose 97 65 - 199 mg/dL [facility] Comment:Diabetes: >=200 mg/d L plus symptoms Blood Urea Nitrogen 27(H) 8 - 18 mg/dL [facility] Creatinine 1.02 0.70 - 1.20 mg/dL [facility] Sodium 139 135 - 145 mmol/L [facility] Potassium 4.2 3.5 - 5.0 mmol/L [facility] Comment: Please note: ??Patients with WBC >100,000 may have falsely elevated Potassium levels. ??For accurate Potassium quantification in these patients send serum separator tube (gold top) for subsequent determinations. ??Contact the Clinical Chemistry Laboratory if there are any questions. Chloride 105 98 - 107 mmol/L [facility] Carbon Dioxide 20(L) 22 - 31 mmol/L [facility] Anion Gap 14 5 - 15 mmol/L [facility] Calcium 9.4 8.5 - 10.5 mg/dL [facility] Est Glomerular Filtration Rate 60 >=60 mL/min/1. 73 m?? [facility] Comment: This patient's estimated GFR [...] In Lab Enrique Chua MD CHEMISTRY ORDERABLES [facility] [place] [address] * ECHO COMPLETE (05/08/2023 11:02 AM EDT) Pathologist [facility] EF 25 [employer] SYSTEM Anatomical Region Laterality Modality Cardiac Other 05/08/2023 10:0 3 AM EDT Narrative 05/08/2023 11:51 AM EDT ? Echocardiogram Report Name: PURNIMA THACKER ?Study Date: 05/08/2023 10:03 AMBP: 92/64 mmHg ? Patient Location: [facility]^CV29^A : 1955 ? Height: 155 cm ? Account: [id number] Age: 67 yrs ? Weight: 78 kg [...] worsening stenosis. Mitral regurgitation is similar. Procedure Complete-32038. Satisfactory quality. There is normal sinus rhythm. [...] Study Date: :03 AMBP: 92/64 mmHg Patient Location:[facility]^CV29^A : 1955 Height: 155 cm Account: [id number] Age: 67 yrs Weight: 78 kg Gender: [...] suggestsworsening stenosis. Mitral regurgitation is similar. Procedure Complete-28085. Satisfactory quality. There is normal sinus rhythm. 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 Mild coronary artery disease by [facility] 11/09/2022 Mixed connective tissue disease Other [...] ejection fraction Mild coronary artery disease by [facility] 11/09/2022 Stenosis of prosthetic aortic valve [...] dose on Wed05/12/23 at 1030, Until Discontinued, [place] teeth, Routine Given 05/12/2023 10:04 AM EDT [...] at 0831, Side port TKO rate, per [facility] flush protocol Rate/Dose Verify 05/13/2023 6:00 AM EDT 10 mL/hr 10 mL/hr Rate/Dose Verify 05/13/2023 4:00 AM EDT 10 mL/hr 10 mL/h r Rate/Dose Verify 05/13/2023 2:00 AM EDT 10 mL/hr 10 mL/h r sodium chloride 0.9% infusion 10-30 mL/hr, Intravenous, DAILY PRN, Starting on Wed05/12/23 at 0944, Until Wed05/17/23 at 0831, Side port TKO rate, per [facility] flush protocol. Rate/Dose Verify 05/17/2023 [...] Mckeon RN)0130 (Not Given - Provider: Favian Mkceon RN - Reason: See comment - Comment: [...] Routine documented in this encounter Care Teams Product Inspection Supervisor Relationship Specialty Start Date End Date Magdalena Acosta MD [address] [place] [address] PCP - General Family Medicine 02/05/23 documented as of this encounter
--- OUTSIDE RECORDS SUMMARY | 2024-04-27 15:01 | XMS_ITS | Encounter Summary ---
[place] [address] Care Team Providers Care Glass Blower Name Role Phone Magdalena Acosta MD Primary Care Provider [phone] Reason for Visit * Auth/Cert (Routine) Specialty Diagnoses / Procedures Referred By Contac t Referred To Contact Diagnoses Symptomatic severe aortic stenosis with low ejection fraction NSTEMI, CHF Haris Chua MD [facility] [place] [address] [facility] Referral ID Status Reason Start Date Expiration Date Visits Re quested Visits Authorized [id number] 1 1 Encounter Details Date Type Department Care Team (Late st Contact Info) Description 05/12/2023 7:35 AM EDT Anesthesia Event Operations Staff [place] [address] Lynda Mcgowan MD [facility] [place] [address] Alie Park MD [facility] [place] [address] Anesthesia Record Procedure Summary Procedure Name Responsible [...] cephalic vein (lateral side of arm), left; vxri-[id number] catheter system; Anatomical Landmarks; US Not Used; [...] RN LDA Cath/EP Sheath 05/12/23; 0733; 14 Nicaraguan (Fr); Right; Femoral; Arterial 05/12/23 0733 by Guerda Bender, RN 05/12/23 0830 by Guerda Bender RN LDA Cath/EP Sheath 05/12/23; 0734; 6 Nicaraguan (Fr); Right; Femoral; Venous 05/12/23 0734 by Guerda Bender RN 05/12/23 0817 by Guerda Bender RN LDA Cath/EP Sheath 05/12/23; 0734; 7 Nicaraguan (Fr); Left; Femoral; Arterial 05/12/23 0734 by Guerda Bender, RN 05/12/23 0837 by Guerda Bender RN LDA Cath/EP Sheath 05/12/23; 0734; 6 Nicaraguan (Fr); Left; Femoral; Venous 05/12/23 0734 by [...] Procedure Summary Date: 05/12/23 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 Mild coronary artery disease by [facility] 11/09/2022 05/08/2023 ??? Heart failure with [...] [facility],POSSIBLE PCI (WRVU 5.6) performed by Nitesh Escobedo MD at [facility] CATH LABS ??? PRO AORTOPLAS FOR SUPRAVALV STEN N/A 09/21/2016 @AORTOPLASTY FOR SUPRAVALVULAR STENOSIS (WRVU 29.33) performed by Alirio Esparza MD at [facility] MAIN OR ??? PRO REPLACEMENT PROSTHETIC AORTIC VALVE OPEN W CARDIOPULMONARY BYPASS HOMOGRF/STENT N/A 09/21/2016 @REPLACE AORTIC VALVE, OPEN, W\CPB, W\PROSTHETIC VALVE (WRVU 41.32) performed by Alirio Esparza MD at [facility] MAIN OR Social History Tobacco Use [...] 3 general, with a(n) intravenous induction Add-on [id number]-vz-[id number] TAVR. In cardiogenic shock. Has arterial line, [...] AM EDT Appointment Hematology [place] [address] 05/12/2024 10:00 AM EDT Office Visit Hematology [place] [phone] Markel Borjas MD [facility] DR HEMATOLOGY [place] [address] 03/01/2025 4:15 PM EDT Office Visit Dermatology at [place] [address] [place] [address] Marek Bonilla MD [address] [place] [address] documented as of this encounter Visit Diagnoses [...] mL/hr documented in this encounter Care Teams Glass Blower Relationship Specialty Start Date End Date Magdalena Acosta MD [address] [place] [address] PCP - General Family Medicine 02/05/23 documented as of this encounter
--- OUTSIDE RECORDS SUMMARY | 2024-04-27 15:01 | XMS_ITS | Encounter Summary ---
Author Organization [facility] [place] [address] Care Team Providers Care Ticket Sales Agent Name Role Phone Magdalena Acosta MD Primary Care Provider [phone] Encounter Details Date Type Department Care Team [...] EDT Appointment Hematology [place] [address] 05/12/2024 10:00 AM EDT Office Visit Hematology [place] [phone] Markel Borjas MD [facility] [address] [place] [address] 03/01/2025 4:15 PM EDT Office Visit Dermatology at [place] [address] [place] [phone] Marek Bonilla MD [address], [place] [address] documented as of this encounter Visit Diagnoses Not on filedocumented in this encounter Care Teams Ticket Sales Agent Relationship Specialty Start Date End Date Magdalena Acosta MD [address] [place] [address] PCP - General Family Medicine 02/05/23 documented as of this encounter
--- OUTSIDE RECORDS SUMMARY | 2024-04-27 15:02 | XMS_ITS | Encounter Summary ---
[place] [address] Care Team Providers Care Molecular Genetic Pathologist Name Role Phone Magdalena Acosta MD Primary Care Provider Reason for Visit * Auth/Cert (Routine) Specialty Diagnoses / Procedures Referred By Contac t Referred To Contact Diagnoses Symptomatic severe aortic stenosis with low ejection fraction NSTEMI, CHF Enrique Chua MD [facility] [place] [address] [facility] Referral ID Status Reason Start Date Expiration Date Visits Re quested Visits Authorized [id number] 1 1 Encounter Details Date Type Department Care Team (Late st Contact Info) Description 05/12/2023 2:50 PM EDT - 05/12/2023 3:50 PM EDT [place] [address] Antelmo Sharma MD [facility] [place] [address] CARDIAC CATHETERIZATION Social History Tobacco Use Types [...] Patient Age: 67 y.o. Birthdate: 1955 Language: Namibian Race: White Ethnicity: Not nor Admit Date: 05/08/2023 Discharge Date: 05/22/2023 Attending Physician: Alirio Hudson MD Follow-up Recommendations for Providers: Please continue routine management of cardiovascular risk factors including blood pressure, lipids,glucose, etc. Please note any medication changes. Patient to follow up with PCP, Magdalena Acosta MD, or Primary Enterprise Architect, Avis Mejia MD, in ~ 7-10 days. Patient to follow up with Felt Washing Machine Tender, Dr. Antelmo Sharma, in 2 weeks with an EKG, Echo, CBC, and CMP. Patient to follow up with Nephrology, their office to arrange. Rszk-Amderp-we interval: After initial 30 day follow-up appointment , all TAVR patients will follow-up again in one year with an echo. 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 Secondary Diagnoses: Active Hospital Problems Diagnosis S/P TAVR (transcatheter aortic valve replacement) Cardiogenic shock Symptomatic severe aortic stenosis with low ejection fraction Mild coronary artery disease by [facility] 11/09/2022 Heart failure with reduced ejection [...] Placement Right 05/18/2023 Laure Ricks PA [facility] INTERVENTIONL RAD PRG CATH PLMT LEFT HEART CATH & ARTS W/INJ & ANGIO IMG S&I N/A 11/09/2022 CORONARY ANGIOGRAPHY; W [facility],POSSIBLE PCI (WRVU 5.6) performed by Mario Alberto Escobedo MD at [facility] CATH LABS PRG COMBINED RIGHT & LEFT HEART CATH W/INJ L VENTRICULOGRAPHY, IMG S&I N/A 05/12/2023 COMBINED RIGHT & LEFT HEART CATH,INC INJ FOR L VENTRICULOGRAPHY (WRVU 5.99) performed by Antelmo Sharma MD at [facility] CATH LABS PRO AORTOPLAS FOR SUPRAVALV STEN N/A 09/21/2016 @AORTOPLASTY FOR SUPRAVALVULAR STENOSIS (WRVU 29.33) performed by Alirio Hudson MD at [facility] MAIN OR PRO REPLACE AORTIC VALVE (TAVR/FEDERICO)PERC FEMORAL ARTERY APPROACH 05/12/2023 @TRANSCATHETER AORTIC VALVE REPLACEMENT (TAVR), PERCUTANEOUS FEMORAL (WRVU 22.47) performed by Alirio Hudson MD at [facility] CATH LABS PRO REPLACEMENT PROSTHETIC AORTIC VALVE OPEN W CARDIOPULMONARY BYPASS HOMOGRF/STENT N/A 09/21/2016 @REPLACE AORTIC VALVE, OPEN, W\CPB, W\PROSTHETIC VALVE (WRVU 41.32) performed by Alirio Hudson MD at [facility] MAIN OR Prior To Admission Medications Medications [...] Major Procedures/Operations: 05/12/23: Successful right transfemoral TAVR Vwlky-tc-Exqzv with a 23 mm Lai 3 THV. [...] if you have questions. Please call your Felt Washing Machine Tender's office if you have any discharge or drainage from your procedural sites. Your Felt Washing Machine Tender, Dr. Antelmo Sharma and/or the Primer Assembler may be reached at . Antibiotic prophylaxis: You will need to take antibiotics prior to many invasive tests and treatments, such as dental cleaning, which should be done every 6 months. Your primary care physician or your dentist can prescribe this medication. Please refer to the card with the [employer] Guidelines for more information. You have been provided with a copy of this card. Please refer to the [employer] Heart [employer] Guidelines for more information. Good [...] friends, go to a movie, go to jewish, etc. Heavy activities: No hunting, skiing, jogging, [...] should resume a low fat, low cholesterol, [employer] Heart Association Diet Driving: No restrictions. Shower/Bath: You may shower daily. No baths, soaking, or swimming for the first week. Wound care: Wash the sites daily with soap and rinse well, pat dry. Assess for any signs of infection such as increased redness, pain, warmth or drainage. Please call your scanning clerk's office if you have any discharge or drainage from your procedural sites. If there is a lot of swelling, apply mamta wraps during the day and remove at bedtime. Elevate your legs when you are sitting. Home oxygen therapy: N/A Follow up appointments: Please schedule a follow-up appointment with your PCP, Magdalena Acosta MD, or Primary Enterprise Architect in ~ 7-10 days. You have a follow-up appointment with your Felt Washing Machine Tender, Dr. Antelmo Sharma, in 2 weeks with an EKG, Echo, and labs prior to your appointment. You will need follow-up with Nephrology, their office will arrange. Kkka-Gdcvrz-lh interval: After initial 30 day follow-up appointment [...] 11:00 AM Magdalena Peralta MD Rheumatology at [facility] Arrive at: Purchasing Clerk Area [address] [phone] 02/11/2024 2:00 PM Marek Bonilla MD Dermatology at [place] Arrive at: [facility] [address] [phone] Future Orders Complete By Expires Type and Screen Future Surgery, [facility] SAME DAY PROGRAM ONLY) [[id number] Custom] 05/11/2023 Process Instructions: This test is intended ONLY for patients with upcoming surgery for testing prior to the day of surgery obtained through the same day program (4V or SDP). For ALL OTHER PATIENTS, order a Type and Screen (DUE699) This order includes the physician order for an ABO Recheck if requested by the Blood Bank. Scheduling Instructions: Comments: Questions: Date of surgery: CBC (with Diff) [[id number] Custom] 06/05/2023 12/05/2023 Process Instructions: INCLUDES: WBC, RBC, Hgb, Hct, Platelets, RBC Indices and Differential Scheduling Instructions: Comments: Questions: Comprehensive metabolic panel (non-fasting) [LAB17 Custom] 06/05/2023 08/20/2023 Process Instructions: INCLUDES: Calcium, T Protein, Albumin, AST, ALT, Alk Phos, T Bili, BUN, Creat, GFR, Glucose, Lytes. Scheduling Instructions: Comments: Questions: Echocardiogram Transthoracic [38361 CPT(R)] 06/05/2023 12/05/2023 Process Instructions: Scheduling Instructions: Questions: Where will study be performed?: [facility] Clinics Does the patient have Congenital Heart Disease?: Does patient require sedation?: GA rationale: EKG 12 Lead [80155 CPT(R)] 06/05/2023 12/05/2023 Process Instructions: Scheduling Instructions: Questions: Which location will this be performed?: [place] Is a rhythm strip needed?: No [facility] Devices [EQ161 Custom] As directed Process Instructions: Scheduling Instructions: Questions: Device Needed: WALKER (E0143) Patient Height (cm): 154.9 cm (5' 0.98) Patient Weight: 75.4 kg (166 lb 3.2 oz) Diagnosis: Unsteady gait when walking Referral to Cardiac Rehab [GJX480 Custom] As directed Process Instructions: If no progress note charted, please enter Clinical details in comments. Scheduling Instructions: Questions: My question or request is: s/p TAVR. Cardiac rehab at [facility]. Referral to Home Health [REF34 Custom] As directed Process Instructions: If no progress note charted, please enter Clinical details in comments. Scheduling Instructions: Comments: DOCUMENTATION FOR VNA SERVICES PATIENT'S LOCATION: Purnima Thacker [address] [place] [address] [phone] (home) Deep Fat Fry Cook's Name: Irineo and brother Raymond In discussion with the attending physician, it is certified that this patient is under his/her careand that MD, or an ADMINISTRATIVE REPRESENTATIVE, RECONCILIATION ANALYST, or PA who is working directly with him/her, had a rboq-lc-ioug encounter that meets the physician imlu-ec-chld encounter requirements with this patient on 05/22/2023. [...] for managing ADLs. HOME HEALTH CARE AGENCY: [facility]. [address] [facility] [address] PHONE: [phone] FAX: [phone] Start of care: Ideally 24-48 hours after [...] MD [address] / [facility] [phone] All VNA agencies which cover the area [...] Surgery Date: 05/22/2023 CC: Magdalena Acosta MD [place] ParkMario Alberto maxwell MD [address] [place] [address] documented in this encounter Discharge Instructions * Patient Instructions* Vinod Juárez PA - 05/22/2023 9:32 AM EDT TAVR Discharge Instructions: Call your doctor if: You have a fever of greater than 101 degrees, shaking chills, if you develop redness or drainage from your procedure sites, or if you have questions. Please call your Felt Washing Machine Tender's office if you have any discharge or drainage from your procedural sites. Your Felt Washing Machine Tender, Dr. Antelmo Sharma and/or the Primer Assembler may be reached at . Antibiotic prophylaxis: You will need to take antibiotics prior to many invasive tests and treatments, such as dental cleaning, which should be done every 6 months. Your primary care physician or your dentist can prescribe this medication. Please refer to the card with the [employer] Heart Association Guidelines for more information. You have been provided with a copy of this card. Please refer to the [employer] Heart Association Guidelines for more information. Good [...] friends, go to a movie, go to jewish, etc. Heavy activities: No hunting, skiing, jogging, [...] should resume a low fat, low cholesterol, Greek Heart Association Diet Driving: No restrictions. Shower/Bath: You may shower daily. No baths, soaking, or swimming for the first week. Wound care: Wash the sites daily with soap and rinse well, pat dry. Assess for any signs of infection such as increased redness, pain, warmth or drainage. Please call your scanning clerk's office if you have any discharge or drainage from your procedural sites. If there is a lot of swelling, apply mamta wraps during the day and remove at bedtime. Elevate your legs when you are sitting. Home oxygen therapy: N/A Follow up appointments: Please schedule a follow-up appointment with your PCP, Magdalena Acosta MD, or Primary Enterprise Architect in ~ 7-10 days. You have a follow-up appointment with your Felt Washing Machine Tender, Dr. Antelmo Sharma, in 2 weeks with an EKG, Echo, and labs prior to your appointment. You will need follow-up with Nephrology, their office will arrange. Uvxj-Zljomx-jl interval: After initial 30 day follow-up appointment [...] ins ( tef) Haven Ba, PT Pager: [phone] Physical Therapy Inpatient Rehabilitation Department * Nico [...] 0600 and on the weekends please page [phone]. * Jory Paniagua - 05/20/2023 3:52 PM [...] vomiting Last Bowel Movement: 05/20/23 Jory Paniagua Technical Staff Engineer * Tong Mike, OT - 05/20/2023 3:16 [...] Placement Right 05/18/2023 Laure Ricks PA [facility] INTERVENTIONL RAD PRG CATH PLMT LEFT HEART CATH & ARTS W/INJ & ANGIO IMG S&I N/A 11/09/2022 CORONARY ANGIOGRAPHY; W [facility],POSSIBLE PCI (WRVU 5.6) performed by Mario Alberto Escobedo MD at [facility] CATH LABS PRG COMBINED RIGHT & LEFT HEART CATH W/INJ L VENTRICULOGRAPHY, IMG S&I N/A 05/12/2023 COMBINED RIGHT & LEFT HEART CATH,INC INJ FOR L VENTRICULOGRAPHY (WRVU 5.99) performed by Antelmo Sharma MD at [facility] CATH LABS PRO AORTOPLAS FOR SUPRAVALV STEN N/A 09/21/2016 @AORTOPLASTY FOR SUPRAVALVULAR STENOSIS (WRVU 29.33) performed by Alirio Hudson MD at [facility] MAIN OR PRO REPLACE AORTIC VALVE (TAVR/FEDERICO)PERC FEMORAL ARTERY APPROACH 05/12/2023 @TRANSCATHETER AORTIC VALVE REPLACEMENT (TAVR), PERCUTANEOUS FEMORAL (WRVU 22.47) performed by Alirio Hudson MD at [facility] CATH LABS PRO REPLACEMENT PROSTHETIC AORTIC VALVE OPEN W CARDIOPULMONARY BYPASS HOMOGRF/STENT N/A 09/21/2016 @REPLACE AORTIC VALVE, OPEN, W\CPB, W\PROSTHETIC VALVE (WRVU 41.32) performed by Alirio Hudson MD at [facility] MAIN OR Social History: Patient lives alone. Home Setup: Pt lives on one level with tub shower and three steps to enter. DME: none used COMPUTER SYSTEM SPECIALIST Baseline ADL/Mobility: Independent with ADLs and [...] Vision & Perception: corrective lenses time study technologist Communication: WFL Range of motion, strength, coordination: [...] Discharge Disposition (OT): swing bed rehabilitation facility, residential facility(vs home with support for IADLs) Other [...] Discharge planning. Total Minutes, Occupational Therapy: 28 (4518-5198) OT Evaluation Code Rationale: Diagnosis & Pertinent Co-Morbidities affecting Plan of Care: see PMHx Occupational Profile & Client History: Brief Expanded Extensive x Assessment of Occupational Performance: 1-3 performance deficits 3-5 performance deficits x 5 + performance deficits Clinical Decision Making: Low Moderate High x Clinical decision making of moderate complexity using standardized patient assessment instrument and measurable assessment of functional outcome. Pager: [phone] TONG MIKE OT 05/20/2023 Occupational Therapy Rehabilitation [...] 0600 and on the weekends please page [phone]. * Rylie Rodriguez MD - 05/19/2023 3:59 [...] and plan. Cynthia Blackburn MD Nephrology Pager: [phone] * Diana Espino - 05/19/2023 1:49 PM EDT Plodding Machine Operator Encounter Note Patient Name: Purnima Thacker : [id number] MR#: [id number] Admit Date: 05/08/2023 9:14 AM Hospital Day [...] returning home alone. Anticipated Discharge Disposition (PT): residential facility, swing bed rehabilitation facility Consult Recommendations: [...] as stated. Total Minutes, Physical Therapy: 38 (7142-8166) Henrik Navarrete PTA Pager: [phone] Physical Therapy Inpatient Rehabilitation Department * Nico [...] 0600 and on the weekends please page [phone]. * Laure Ricks PA - 05/19/2023 7:56 [...] Ricks PA-C Interventional Radiology IR Team Pager [phone] * Consuelo Espinoza RN - 05/18/2023 4:13 PM EDT ANGIO NURSING DATABASE Name: Purnima Thacker Date of : 1955 AGE: 67 y.o. Address: [address] [place] [address] (home) Mobile: No relevant phone numbers on [...] Mild coronary artery disease by [facility] 11/09/2022 I25.10 Heart failure with reduced [...] and plan. Cynthia Blackburn MD Nephrology Pager: [phone] * Magdalena Puri, COUNT ROOM CLERK - 05/18/2023 10:51 AM EDT Images from the original note were not included. [facility] [place] [address] STRUCTURAL HEART DISEASE CONSULTATION NOTE PRIMARY CARE [...] stenosis. She is now status post TAVR Heruk-na-Dujax with a 23 mm Lai 3 THV 05/12/[address] Sharma. Preliminary findings: Successful right transfemoral TAVR Lcjgc-fy-Ftxue with a 23 mm Lai 3 THV. [...] Mild coronary artery disease by [facility] 11/09/2022 Heart failure with reduced ejection [...] tablet 40 mg 40 mg Oral Daily [place] ern[place] APRN 40 mg at 05/18/23 0826 Or pantoprazole (Protonix) injection 40 mg 40 mg Intravenous Daily [place] ern[place] APRN 40 mg at 05/12/23 1004 [...] mL 0.5 mL Intramuscular Prior to discharge [place] ern[place] APRN FAMILY HISTORY: No family history [...] stenosis. She is now status post TAVR Hisac-hu-Lpewb with a 23 mm Lai 3 THV [...] Magdalena Puri APRN Structural Heart Team Pager [phone] Team Office Please see addendum by Dr. Sharma for final plan and recommendations Associated attestation - Antelmo Sharma MD - 05/19/2023 10:52 PM EDT I have reviewed Magdalena Puri APRN's above history and I agree with the details as written. The assessment and plan were formulated in discussion with me and I agree with them as documented. Antelmo Sharma MD Pager [phone] * Nico Palacios PA - 05/18/2023 8:13 [...] 0600 and on the weekends please page [phone]. * Loli Hernandez, PT - 05/17/2023 5:27 [...] returning home alone. Anticipated Discharge Disposition (PT): residential facility, swing bed rehabilitation facility Consult Recommendations: [...] plan as stated. Time IN / OUT: 3840-9713 Total Minutes, Physical Therapy: 54 Billing Code: te-sx2, te-f, angely HERNANDEZ PT Pager: [phone] Physical Therapy Inpatient Rehabilitation Department * Cynthia [...] Well controlled. Cynthia Blackburn MD Nephrology Pager: [phone] * Mara Serrano, COUNT ROOM CLERK - 05/17/2023 8:26 AM EDT Cardiac [...] 0600 and on the weekends please page [phone]. * Guerda Del Valle C - 05/16/2023 10:44 AM EDT Nutrition Services Note - Low Nutrition Acuity Purnima Thacker is a 67 y.o. female Reason for intervention: hospital day 9 Nutrition Plan: Continue diet order Encourage good PO Lasix and Zofran noted Added special serve: open containers Monitor weight Patient scheduled for a hospital day 9 nutrition evaluation. Addiction Specialist met with pt at bedside. Pt reports that her appetite and PO has much improved since admission. Denies nausea/vomiting or trouble chewing/swallowing. Addiction Specialist provided snack list but pt not interested in adding snacks at this time. Her only concern was that she is worried that she will eat too much which will cause too much pressure in her stomach. Addiction Specialist assured pt and suggested eating smaller [...] Last Bowel Movement: 05/10/23 Guerda Del Valle Technical Staff Engineer * Vinod Juárez PA - 05/16/2023 10:19 [...] 0600 and on the weekends please page [phone]. * Michael Jeffers MD - 05/16/2023 8:11 AM EDT Images from the original note were not included. Hypertension-Nephrology Inpatient Follow-up Purnima Thacker [id number] 1955 ID: 67 y.o. old female seen [...] IRONSAT 12 (L) 05/16/2023 SFOLATE >20.0 07/03/2022 [id number] 07/03/2022 Lab Results Component Value Date [...] Dr. Ayoub. Please contact me at phone: [phone] or pager: [phone] with any questions. Michael Jeffers MD Nephrology [...] -Nephrology consulted, labs and renal US ordered -Williamson removed, ambulated around the unit -bilateral pleural [...] 0600 and on the weekends please page [phone]. * Hortencia Cody MD - 05/15/2023 2:07 [...] not included. Hypertension-Nephrology Inpatient Follow-up Purnima Thacker [id number] 1955 ID: 67 y.o. old female seen [...] HGB 7.8 (L) 05/13/2023 SFOLATE >20.0 07/03/2022 [id number] 07/03/2022 Lab Results Component Value Date [...] Dr. Ayoub. Please contact me at phone: [phone] or pager: [phone] with any questions. Michael Jeffers MD Nephrology [...] outlined inthis evaluation. HAVEN BA, PT Pager: [phone] Physical Therapy Inpatient Rehabilitation Department Time IN / OUT: 7487-7602 Total time: Total Minutes, Physical Therapy: 30 [...] 0600 and on the weekends please page [phone]. * Antelmo Sharma MD - 05/14/2023 7:56 AM EDT Images from the original note were not included. [facility] [place] [address] STRUCTURAL HEART DISEASE CONSULTATION NOTE PRIMARY CARE PROVIDER: Magdalena Acosta MD REFERRING PROVIDER: Mario Alberto Chin REASON FOR CONSULTATION: Bioprosthetic aortic valve stenosis HISTORY OF PRESENT ILLNESS: Patient ID: Purnima Thacker is a 67 y.o. female with a past medical history significant for historyof SAVR 09/2016 (bovine pericardial 25 mm), HFrEF, HTN, DLP, NICOALS, mixed connective tissues disease, and other chronic medical comorbidities, who has been admitted to the cardiovascular service with acute on chronic decompensated systolic heart failure in the context of bioprosthetic aortic valve stenosis. She is now status post TAVR Hqnne-et-Necpp with a 23 mm Lai 3 THV 05/12/[address] Sharma. Preliminary findings: Successful right transfemoral TAVR Fyetv-tk-Tmmfq with a 23 mm Lai 3 THV. [...] perforation. Interval Events: - 05/12 Transferred to [facility] post- TAVR for pressor/inotropic support [...] Mild coronary artery disease by [facility] 11/09/2022 Heart failure with reduced ejection [...] stenosis. She is now status post TAVR Sfaqn-ks-Uhcbv with a 23 mm Lai 3 THV 05/12/[address] Sharma. Janet TAVR case notable for coronary LAD protective MINNA. Status post TAVR, the patient was transferred to [facility] for pressor and inotropic support. [...] Brody Kaplan APRN Structural Heart Team Pager [phone] Team Office Please see addendum by Dr. [...] exposure. Nephrology consultationtoday. Antelmo Sharma MD Pager [phone] * Antelmo Cardenas RN - 05/14/2023 5:18 AM EDT Pt AOx4, complaining of mild/moderate generalized pain (states her Meloxicam is effective at home) currently refusing prn oxycodone. NAEON, hemodynamically stable on Milrinone, Maps >65, ST in prc796's down to NSR with frequent multifocal PVC's. [...] [facility] [place] [address] STRUCTURAL HEART DISEASE PROGRESS NOTE PRIMARY CARE [...] stenosis. She is now status post TAVR Divdt-wx-Unbpk with a 23 mm Lai 3 THV 05/12/[address] Sharma. Preliminary findings: Successful right transfemoral TAVR Iycll-zf-Jyoij with a 23 mm Lai 3 THV. [...] Mild coronary artery disease by [facility] 11/09/2022 Heart failure with reduced ejection [...] stenosis. She is now status post TAVR Vqole-pd-Yjcxs with a 23 mm Lai 3 THV 05/12/[address] Sharma. Janet TAVR case notable for coronary LAD protective MINNA. Status post TAVR, the patient was transferred to [facility] for pressor and inotropic support. [...] Brody Kaplan APRN Structural Heart Team Pager [phone] Team Office Please see addendum by Dr. [...] DAPT moving forward. Antelmo Sharma MD Pager [phone] * Bonita Miguel PA - 05/13/2023 8:30 [...] soft b/l, no evidence of hematoma. Tubes/Lines/Drains: Williamson, RIJ, A-line, Art, PIV Assessment/Plan: 67 y.o. [...] 0600 and on the weekends please page [phone]. * Onelia Schwartz MD - 05/12/2023 1:44 [...] Mild coronary artery disease by [facility] 11/09/2022 Heart failure with reduced ejection [...] FiO2 weaned to 40%. 1105: ABG 7.34/42/73/22 0187-0175: SBT performed and passed on these settings [...] PCP: Magdalena Acosta MD PCP phone number: [phone] Date of Admission: 05/08/2023 ( Hospital Day [...] 1447 PHART -- 7.34* 7.34* -- -- LEI3ZOZ -- 30* 30* -- -- PO2ART -- 72* 81* -- -- JVK8NNM -- 16.0* 15.7* -- -- LACTATEVEN 2.4* 2.7* 2.7* 4.8* 2.9* VBG (Venous Blood Gas) Recent Labs 05/12/23 0700 05/12/238 05/12/2310505/11/23193905/11/23 144 LACTATEVEN 2.4* 2.7* 2.7* 4.8* 2.9* Mixed Venous Sat Recent Labs 05/12/23 0508 05/12/23 0321 05/12/23 0114 05/12/23 0030 [id number] 30.7 32.7 37.3 25.1 Objective: Vitals Last [...] orientation teacher that requested your imaging first. Cardiac for [...] orientation teacher that requested your imaging first. Angiogram Abdomen [...] orientation teacher that requested your imaging first. Chest One [...] orientation teacher that requested your imaging first. Chest One [...] orientation teacher that requested your imaging first. Assessment & [...] and inotrope. She is planned for a joczy-je-aeqsd TAVR this morning, which should hopefully improve [...] MD, FACP, FACC Section of Cardiovascular Medicine [facility] Plasma Processing Centrifuge Operatortoll gate keeper [facility] [employer] [facility] * Noreen Deutsch RN - 05/12/2023 5:21 [...] Mild coronary artery disease by [facility] 11/09/2022 Heart failure with reduced ejection [...] 05/11/2023 4:11 PM EDT Reported off to FINANCIAL PLANNER and pt transferred over in the bed for higher level of care. * Antelmo Sharma MD - 05/11/2023 9:45 AM EDT Images from the original note were not included. [facility] [place] [address] STRUCTURAL HEART DISEASE CONSULTATION NOTE PRIMARY CARE [...] who had been referred for possible TAVR umfuo-zv-lgbnl evaluation. Her primary symptoms are of dyspnea [...] [facility]. 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 [...] Mild coronary artery disease by [facility] 11/09/2022 Heart failure with reduced ejection [...] hour(s)) Lactate, whole blood, send to lab ([facility]) Result Value Ref Range Lactate WB 3.1 (H) 0.5 - 2.2 mmol/L Heparin (unfractionated) Level Result Value Ref Range Heparin UFH Level 0.46 IU/mL Lactate, whole blood, send to lab ([facility]) Result Value Ref Range Lactate WB 1.8 [...] leads Confirmed by MD Harshil, Enrique Bell ([id number]) on 05/10/2023 8:11:46 AM Cardiac Cath 11/09/2022 [...] alert Dr. Hudson of her inpatient status, [place] primary cardiac surgeon. Based on recent clinic visit, tentative plan had been for TAVR JANET issa ferrera given her chronological age. Cardiac cath 11/09/2022 notable for non-obstructive coronary disease. TAVR CTAs planned for today. Will review her case with cardiac surgery to determine best timing and therapies for her valve intervention. Addendum 05/11/2023 6:48 PM Due to decompensating HFrEF, she was transferred to [facility] this afternoon for further management. TAVR CT imaging support for adequate ileofemoral access. Given her acute deterioration today, will planfor RTF TAVR on 05/12/2023. Brody Kaplan APRN Structural Heart Disease Pager [phone] Please see addendum by Dr. Sharma for [...] signed and dated. Antelmo Sharma MD Pager [phone] * Harini Lance MD - 05/11/2023 6:06 AM EDT Images from the original note were not included. Cardiology Progress Note Patient info: Name: Purnima Thacker : 1955 PCP: Magdalena Acosta MD PCP phone number: [phone] Date of Admission: 05/08/2023 ( Hospital Day [...] orientation teacher that requested your imaging first. 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..] PPx: Diet: Daily Healthy Menu Choices/Cardiac diet ([facility]-Diet) Lines: Peripheral IV Line - Single Lumen [...] Mild coronary artery disease by [facility] 11/09/2022 Hyperlipidemia, unspecified NICOLAS (obstructive sleep [...] Mild coronary artery disease by [facility] 11/09/2022 I25.10 Heart failure with reduced ejection fraction due to heart valve disease I50.20, I38 Cardiogenic shock R57.0 S/P TAVR (transcatheter aortic valve replacement) Z95.2 Past Medical History: Diagnosis Date Anemia Past Surgical History: Procedure Laterality Date PRG CATH PLWY LEFT HEART CATH & ARTS W/INJ & ANGIO IMG S&I N/A 11/09/2022 CORONARY ANGIOGRAPHY; W [facility],POSSIBLE PCI (WRVU 5.6) performed by Mario Alberto Escobedo MD at [facility] CATH LABS PRO AORTOPLAS FOR SUPRAVALV STEN N/A 09/21/2016 @AORTOPLASTY FOR SUPRAVALVULAR STENOSIS (WRVU 29.33) performed by Alirio Hudson MD at [facility] MAIN OR PRO REPLACEMENT PROSTHETIC AORTIC VALVE OPEN W CARDIOPULMONARY BYPASS HOMOGRF/STENT N/A 09/21/2016 @REPLACE AORTIC VALVE, OPEN, W\CPB, W\PROSTHETIC VALVE (WRVU 41.32) performed by Alirio Hudson MD at [facility] MAIN OR Social History and Habits: Social [...] Mild coronary artery disease by [facility] 11/09/2022 I25.10 Heart failure with reduced ejection fraction due to heart valve disease I50.20, I38 Cardiogenic shock R57.0 S/P TAVR (transcatheter aortic valve replacement) Z95.2 Past Medical History: Diagnosis Date Anemia Past Surgical History: Procedure Laterality Date PRG CATH PLWY LEFT HEART CATH & ARTS W/INJ & ANGIO IMG S&I N/A 11/09/2022 CORONARY ANGIOGRAPHY; W [facility],POSSIBLE PCI (WRVU 5.6) performed by Mario Alberto Escobedo MD at [facility] CATH LABS PRO AORTOPLAS FOR SUPRAVALV STEN N/A 09/21/2016 @AORTOPLASTY FOR SUPRAVALVULAR STENOSIS (WRVU 29.33) performed by Alirio Hudson MD at [facility] MAIN OR PRO REPLACEMENT PROSTHETIC AORTIC VALVE OPEN W CARDIOPULMONARY BYPASS HOMOGRF/STENT N/A 09/21/2016 @REPLACE AORTIC VALVE, OPEN, W\CPB, W\PROSTHETIC VALVE (WRVU 41.32) performed by Alirio Hudson MD at [facility] MAIN OR Social History and Habits: Social [...] Hgb 10.5 CMP - Cr 1.1 BNP 10031 HsTrop 1358 Lactate 1.6 D-dimer 1183 Interval History Patient was admitted to [facility] due to concern on low [...] Klaudia Reid MD Internal Medicine PGY-1 Pager [phone], M1-S1 Service Associated attestation - Juan Luis Gonzalez MD - 05/08/2023 10:00 PM EDT Cardiology Attending Addendum Active Hospital Problems Diagnosis Symptomatic severe aortic stenosis with low ejection fraction Heart failure with reduced ejection fraction due to heart valve disease Mild coronary artery disease by [facility] 11/09/2022 Hyperlipidemia, unspecified History of aortic [...] PCP: Magdalena Acosta MD PCP phone number: [phone] Date of Admission: 05/08/2023 ( Hospital Day [...] Hgb 10.5 CMP - Cr 1.1 BNP 66341 HsTrop 1358 Lactate 1.6 D-dimer 1183 Vasoactive [...] #Routine Diet: Daily Healthy Menu Choices/Cardiac diet ([facility]-Diet) DVT Prophylaxis: heparin gtt GI Prophylaxis: none [...] to the planned procedure. Hand Hygiene: The electrician refinery did perform hand hygiene prior to arterial [...] Successful arterial line placement. Crispin Timmons MD Primer Assembler Associated attestation - Onelia Schwartz MD - [...] (flow was non-pulsatile) and appearance of blood. Williamson-Marily catheter was placed and locked at 55 [...] information for follow-up [facility], [place] [address] [place] [id number] Cardiac Rehab, [place] [id number] [place] [address] [facility], [place] [address] [place] [address] Transportation: family or friend will provide *Brother [...] Type: *No Product type* / Secondary Insurance: [employer] [place] Prescription Coverage: Yes This plan was formulated with input from patient, family (please identify family/friend involved ifapplicable) and team. All are in agreement with plan. Aliza Martino MSN-Ed, RN ACM marketing producer Office of Care Management Pager #[phone] * Plan of Care - Favian Mckeon [...] Lana Chaudhary RN - 05/21/2023 4:46 PM [facility] [place] [facility] OFFICE OF CARE MANAGEMENT [...] Type: *No Product type* / Secondary Insurance: [employer] [facility] [place] Last Physical Therapy Recommendation: (Home with assist from Brother; Friend arriving Tues) with walker, front wheeled Last Occupational Therapy Recommendation: swing bed rehabilitation facility, residential facility (vs home with support for IADLs) [...] geographic area. They have requested referrals to: [facility] [address] [place] [address] [facility] [place], [place] Note routed to a Inside Account Representative who will communicate referrals to facilities and provide any required information. Transportation: family or friend will provide *Brother Raymond on Tuesday 05/22 at 1000 Barriers to discharge: Does not have home 22/02 assist available until tomorrow Tuesday 05/22 Plan going forward: Discharge home into the 22/02 home care of brother Raymond with [facility] and [place] [facility] PT/OT services on Tuesday 05/22 [...] Attending: All Staff: Staff Role Juanita Almaguer Cage Tender Laure Ricks PA Physician Police Stenographer Magdalena Rodriguez RN Radiology Nurse Consuelo Espinoza automatic dry starch operator Nurse Post-operative diagnosis/Indication: Right pleural effusion Name [...] Type: *No Product type* / Secondary Insurance: [employer] [facility] [place] Last Physical Therapy Recommendation: residential facility, swing bed rehabilitation facility with to be determined Last Occupational Therapy Recommendation: with Plan for discharge is: Intermediate Facility / Swing Outpatient Agency/Support Group Needs: None Agency Referrals: Based on discussions with the multi-disciplinary healthcare team, the patient would benefit from SNF / Swing level of care at discharge. I have met with the patient to: discuss discharge planning needs. provide the [facility], Office of Care Management letter from the Internet Application Developer pertaining to rehab referrals. provide a [...] for referral. They have requested referrals to: [facility] [address] [place] [address] [facility] ([facility]) [address] [place] [address] (Accepts pts only after exhausting all other local SNF options) [facility] (Swing) ([facility]) [address] [place] [address] PHONE: [phone] FAX: [phone] [facility] ([facility]) [facility]) [address] [place] [address] PHONE: [phone] FAX: [phone] Note routed to a Inside Account Representative who will communicate referrals to facilities [...] Crenshaw RN - 05/17/2023 10:25 AM EDT [facility] CARDIAC REHABILITATION Purnima Thacker was seen today [...] from the original note were not included. [facility] NEPHROLOGY/HYPERTENSION CONSULT NOTE PATIENT: [...] in her course. She ultimately underwent a ahuqo-sj-ejzch procedure on and tolerated it well (see [...] 1423 05/12/23 1105 PHART 7.39 7.37 7.34* [id number] 33* 36 42 PO2ART 101 102 73* UFT9ZGR 19.5* 20.4 22.1 LACTATEVEN 1.5 1.8 2.8* VCR7DAB 40 40 40 PFRATIOART2 252 255 182 VBG (Venous Blood Gas) Recent Labs 05/12/23 1557 05/12/23 1423 05/12/23 1105 LACTATEVEN 1.5 1.8 2.8* Mixed Venous Sat Recent Labs 05/12/23 1425 05/12/23 0508 05/12/23 0321 R3YBXA8 59.9 30.7 32.7 LFT's: Recent Labs 05/14/23 0110 05/13/23 0115 05/12/23 0600 BILITOT 0.4 0.5 0.9 BILIDIR -- 0.3 -- ALBUMIN 3.6 3.0* 3.5 ALKPHOS 86 85 100 ALT 437* 903* 1,174* AST 319* 792* 1,435* No results found for: UPROTCREAT No results found for: TPROTEINPEP, ALBELECT No results found for: MICROALBUR, [id number] No results found for: HA1C Lab Results Component Value Date CALCIUM 8.5 05/14/2023 PHOS 4.7 (H) 05/08/2023 No results found for: 25OHVITD MICROBIOLOGY: ProcedureComponentValueUnitsDate/TimeUrine culture [[id number]]Collected: 05/11/231921Lab Status: Final resultSpecimen: Clean Catch UrineUpdated: [...] consulted for assessment if this patient needs WATER QUALITY MANAGER. Atthis time, we can likely hold off on WATER QUALITY MANAGER. Her volume status appears sufficient and her metabolic kanwal angements with mild acidosis is not too profound. Patient does not have significant uremic symptoms. We can hold off for today, but the patient is a high risk candidate for needing WATER QUALITY MANAGER in future daysespecially if her Cr curve trends the direction it is for the next several days. S/p Awmwb-qm-Yschz TF TAVR: Management per cardiology. On milrinone gtt. PLAN: - Please obtain following diagnostics: renal US, urinalysis, urine prot/Cr ratio, urine albumin/Cr ratio, CK, uric acid, serum osmol, daily VBGs - No acute indications for WATER QUALITY MANAGER/dialysis. We will keep close eye on Cr trend, volume status, and metabolics to ensure patient still does not need WATER QUALITY MANAGER as she ensues intrinsic renal recovery [...] M.H.Katherine., M.A. PGY-V Nephrology-Hypertension Fellow Page # [phone] [facility] [address] 2nd floor, Purchasing Clerk [address] [place] [address] * Care Management - Mario Alberto Olmos [...] Type: *No Product type* / Secondary Insurance: [facility] Plan for discharge is: Home [...] for a TAVR at 730. Returned to [facility] at 0945. Was intubated in [...] Operative Note Patient Name: Purnima Thacker : [id number] MR#: [id number] Case Date: 05/12/2023 Surgeon: Surgeon(s) and Role: [...] procedure Note: Patient Name: Purnima Thacker : [id number] MR#: [id number] Case Date: 05/12/2023 Operators Surgeon: Surgeon(s) and [...] main with 4.0 x 30 mm Resolute [place] Drug Eluting Stent Perclose x1 + Angio-seal 8 Fr x1, RFA Manual pressure, LFA Manual pressure, LFV Endotracheal intubation (performed by cardiac anesthesia) Preliminary findings: Successful right transfemoral TAVR Pkiqi-oi-Cueob with a 23 mm Lai 3 THV. [...] MD, M.Sc. Structural Heart Disease Fellow Pager :[phone] Antelmo Sharma MD Pager [phone] * Op Note - Alirio Hudson MD - 05/12/2023 7:37 AM EDT Preop Diagnosis: Severe aortic stenosis, symptomatic. Postop Diagnosis: Same. Procedure: Transfemoral TAVR procedure with 23mm valve. Surgeon: Alirio Hudson M.D. 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 [address] STRUCTURAL HEART DISEASE CONSULTATION NOTE PRIMARY CARE [...] who had been referred for possible TAVR yyqwv-ci-gdtsq evaluation. Her primary symptoms are of dyspnea [...] [facility]. 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 [...] Mild coronary artery disease by [facility] 11/09/2022 Heart failure with reduced ejection [...] hour(s)) Lactate, whole blood, send to lab ([facility]) Result Value Ref Range Lactate WB 1.8 [...] leads Confirmed by MD Harshil, Enrique Bell ([id number]) on 05/10/2023 8:11:46 AM Assessment and Plan: [...] alert Dr. Hudson of her inpatient status, [place] primary cardiac surgeon. Based on recent clinic [...] Antelmo Sharma MD Structural Heart Disease Pager [phone] * Plan of Care - Sarahi Nice RN - 05/10/2023 3:55 AM EDTSumavis: RN Note and Care Plan Sarahi Nice RN assumed care of pt at time of their arrival to room 362 from [facility]. Pt voices shortness of breath [...] VTE (Venous Thromboembolism) Risk Flowsheets (Taken 05/09/2023 9366) VTE Prevention/Management: anticoagulant therapy Intervention: Prevent Infection [...] listening utilized Taken 05/08/20231999 by Alivia Kauffman transition program manager/Support System Care: self-care encouraged support provided Problem: [...] 180 days) Any patient receiving care in [place] must abide by [place] law. The hierarchy [...] (i) The agent with financial power of criminal attorney or a conservator appointed in accordance [...] DME: none Home [address] confirmed [address] [place] [address] Social & Family Supports: All names listed [...] Type: *No Product type* / Secondary Insurance: [facility] ONLY if patient has Medicare A&B - Does this patient have secondary insurance?: Yes ; Prescription Coverage: Yes Preferred Pharmacy: updated to [facility] in [facility] Status: Patient is a : No Primary Care Provider confirmed: Magdalena Acosta MD [phone] Patient/Caregiver Goals of Treatment: Potential Needs for [...] transition of care planning. Alie Bradshaw RN, Pager-[phone] * Plan of Care - Emily Lucero [...] AM EDT Appointment Hematology [place] [address] 05/12/2024 10:00 AM EDT Office Visit Hematology [place] [address] Markel Borjas MD [facility] HEMATOLOGY [place] [address] 03/01/2025 4:15 PM EDT Office Visit Dermatology at [address] [place] [address] Marek Bonilla MD [address], [place] [address] Scheduled Referrals Name Type Priority Associated Diagnoses [...] Heart Cath W/Inj L Ventriculography, Img S&I ([id number]) 05/12/2023 7:37 AM EDT Aortic valve stenosis, [...] EST Narrative 07/08/2023 12:26 PM EST [address] [place] [address] ? Echocardiogram Report Name: PURNIMA THACKER ?Study Date: 07/08/2023 10:31 AMBP: 118/60 mmHg ? Patient Location: 4A : 1955 ? Height: 155 cm ? Account: [id number] Age: 67 yrs ? Weight: 74 kg Gender: Female ?BSA: 1.7 m2 Ordering Physician: ALIRIO HUDSON Referring Physician: VINOD JUÁREZ Performed By: Felicia Norris RODOLFO Reason For Study: S/P TAVR Exam Location: [facility]. Interpretation Summary Left ventricular systolic [...] no significant change (post-procedure). Procedure Limited - 29554. Doppler - 35032. Color Doppler - 70878. Satisfactory quality. This study is limited because [...] Note Lee Kincaid MD - 07/08/2023 [address] [place] [address] Echocardiogram Report Name: PURNIMA THACKER Study Date: 12/07/903244:31 AMBP: 118/60 mmHg Patient Location: : 1955 Height: 155 cm Account: [id number] Age: 67 yrs Weight: 74 kg Gender: Female BSA: 1.7 m2 Ordering Physician: ALIRIO HUDSON Referring Physician: VINOD JUÁREZ Performed By: Felicia Norris RDCS Reason For Study: S/P TAVR Exam Location: [facility]. Interpretation Summary Left ventricular systolic [...] is nosignificant change (post-procedure). Procedure Limited - 06610. Doppler - 90330. Color Doppler - 95516. Satisfactoryquality. This study is limited because of [...] Lab Alirio Hudson MD CHEMISTRY ORDERABLE S [facility] [place] [address] * (ABNORMAL) Basic Metabolic Panel (non-fasting) (05/22/2023 3:57 AM EDT) Glucose 88 65 - 199 mg/dL [facility] Comment:Diabetes: >=200 mg/d L plus symptoms Blood Urea Nitrogen 21(H) 8 - 18 mg/dL [facility] Creatinine 0.69(L) 0.70 - 1.20 mg/dL [facility] Sodium 136 135 - 145 mmol/L [facility] Potassium 3.6 3.5 - 5.0 mmol/L [facility] Comment: Please note: ??Patients with WBC >100,000 may have falsely elevated Potassium levels. ??For accurate Potassium quantification in these patients send serum separator tube (gold top) for subsequent determinations. ??Contact the Clinical Chemistry Laboratory if there are any questions. Chloride 102 98 - 107 mmol/L [facility] Carbon Dioxide 23 22 - 31 mmol/L [facility] Anion Gap 11 5 - 15 mmol/L [facility] Calcium 8.6 8.5 - 10.5 mg/dL [facility] Est Glomerular Filtration Rate 95 >=60 mL/min/1. 73 m?? [facility] [...] Agency Comment Spec In Lab Mara Maggie AUNRAG CHEMISTRY ORDERABL ES [facility] [place] [address] * (ABNORMAL) Basic Metabolic Panel (non-fasting) (05/21/2023 5:06 AM EDT) Glucose 87 65 - 199 mg/dL [facility] Comment:Diabetes: >=200 mg/d L plus symptoms Blood Urea Nitrogen 25(H) 8 - 18 mg/dL [facility] Creatinine 0.84 0.70 - 1.20 mg/dL [facility] Sodium 136 135 - 145 mmol/L [facility] Potassium 3.6 3.5 - 5.0 mmol/L [facility] Comment: Please note: ??Patients with WBC >100,000 may have falsely elevated Potassium levels. ??For accurate Potassium quantification in these patients send serum separator tube (gold top) for subsequent determinations. ??Contact the Clinical Chemistry Laboratory if there are any questions. Chloride 102 98 - 107 mmol/L [facility] Carbon Dioxide 26 22 - 31 mmol/L [facility] Anion Gap 8 5 - 15 mmol/L [facility] Calcium 8.9 8.5 - 10.5 mg/dL [facility] Est Glomerular Filtration Rate 76 >=60 mL/min/1. 73 m?? [facility] [...] Narrative Resulting Agency Comment Spec In Lab [facility] COUNT ROOM CLERK CHEMISTRY ORDERABL ES Performing Organization Address City/[facility]/ZIP Co de Phone Number [facility] [place] [address] * Lavender Tube HOLD (05/20/2023 2:52 AM EDT) Lavender Hold Sample in lab. [facility] Blood Venous Draw / Unknown 05/20/2023 2:52 AM EDT 05/20/2023 3:04 AM EDT [facility] COUNT ROOM CLERK HEMATOLOGY ORDERAB LES Performing Organization Address City/[facility]/ZIP Co de Phone Number [facility] [place] [address] * (ABNORMAL) Basic Metabolic Panel (non-fasting) (05/20/2023 2:52 AM EDT) Glucose 152 65 - 199 mg/dL [facility] Comment:Diabetes: >=200 mg/d L plus symptoms Blood Urea Nitrogen 33(H) 8 - 18 mg/dL [facility] Creatinine 0.82 0.70 - 1.20 mg/dL [facility] Sodium 137 135 - 145 mmol/L [facility] Potassium 3.7 3.5 - 5.0 mmol/L [facility] Comment: Please note: ??Patients with WBC >100,000 may have falsely elevated Potassium levels. ??For accurate Potassium quantification in these patients send serum separator tube (gold top) for subsequent determinations. ??Contact the Clinical Chemistry Laboratory if there are any questions. Chloride 99 98 - 107 mmol/L [facility] Carbon Dioxide 22 22 - 31 mmol/L [facility] Anion Gap 16(H) 5 - 15 mmol/L [facility] Calcium 9.0 8.5 - 10.5 mg/dL [facility] Est Glomerular Filtration Rate 78 >=60 mL/min/1. 73 m?? [facility] [...] Lab Mara Serrano APRN CHEMISTRY ORDERABL ES [facility] [place] [address] * (ABNORMAL) Potassium (05/20/2023 2:52 AM EDT) Potassium 3.4(L) 3.5 - 5.0 mmol/L [facility] [...] Agency Comment Spec In Lab Mara Serrano COUNT ROOM CLERK CHEMISTRY ORDERABL ES [facility] [place] [address] * XR Chest PA & Lateral (Generic) [...] orientation teacher that requested your imaging first. Alirio Hudson MD IMG DX ORDERABLES * (ABNORMAL) Basic Metabolic Panel (non-fasting) (05/19/2023 5:49 AM EDT) Glucose 93 65 - 199 mg/dL [facility] Comment:Diabetes: >=200 mg/d L plus symptoms Blood Urea Nitrogen 45(H) 8 - 18 mg/dL [facility] Creatinine 1.02 0.70 - 1.20 mg/dL [facility] Sodium 138 135 - 145 mmol/L [facility] Potassium 3.9 3.5 - 5.0 mmol/L [facility] Comment: Please note: ??Patients with WBC >100,000 may have falsely elevated Potassium levels. ??For accurate Potassium quantification in these patients send serum separator tube (gold top) for subsequent determinations. ??Contact the Clinical Chemistry Laboratory if there are any questions. Chloride 102 98 - 107 mmol/L [facility] [facility] Carbon Dioxide 26 22 - 31 mmol/L [facility] Anion Gap 10 5 - 15 mmol/L [facility] Calcium 9.7 8.5 - 10.5 mg/dL [facility] Est Glomerular Filtration Rate 60 >=60 mL/min/1. 73 m?? [facility] [...] Resulting Agency Comment Spec In Lab [facility] ES Performing Organization Address City/State/[facility] Co de Phone Number [facility] [place] [address] * IR Chest Tube Placement Right (05/18/2023 [...] Hospital Glucose 95 65 - 199 mg/dL [facility] Comment:Diabetes: >=200 mg/d L plus symptoms Blood Urea Nitrogen 71(H) 8 - 18 mg/dL [facility] Comment:result rechecked-[facility] Creatinine 1.64(H) 0.70 - 1.20 mg/dL [facility] Comment:result rechecked-[facility] Sodium 137 135 - 145 mmol/L [facility] Potassium 3.7 3.5 - 5.0 mmol/L [facility] Comment: Please note: ??Patients with WBC >100,000 may have falsely elevated Potassium levels. ??For accurate Potassium quantification in these patients send serum separator tube (gold top) for subsequent determinations. ??Contact the Clinical Chemistry Laboratory if there are any questions. Chloride 100 98 - 107 mmol/L [facility] Carbon Dioxide 24 22 - 31 mmol/L [facility] Anion Gap 13 5 - 15 mmol/L [facility] Calcium 9.7 8.5 - 10.5 mg/dL [facility] Est Glomerular Filtration Rate 34(L) [...] Agency Comment Spec In Lab Marakatherine Serrano COUNT ROOM CLERK CHEMISTRY ORDERABL ES [facility] [place] [address] * XR Chest PA & Lateral (Generic) [...] orientation teacher that requested your imaging first. Alirio Hudson MD IMG DX ORDERABLES * (ABNORMAL) Comprehensive metabolic panel (non-fasting) (05/17/2023 4:35 AM EDT) Glucose 89 65 - 199 mg/dL [facility] Comment:Diabetes: >=200 mg/d L plus symptoms Blood Urea Nitrogen 97(H) 8 - 18 mg/dL [facility] Creatinine 2.97(H) 0.70 - 1.20 mg/dL [facility] Comment:result rechecked-JSJ Sodium 135 135 - 145 mmol/L [facility] Potassium 4.1 3.5 - 5.0 mmol/L [facility] Comment: Please note: ??Patients with WBC >100,000 may have falsely elevated Potassium levels. ??For accurate Potassium quantification in these patients send serum separator tube (gold top) for subsequent determinations. ??Contact the Clinical Chemistry Laboratory if there are any questions. Chloride 97(L) 98 - 107 mmol/L [facility] Carbon Dioxide 22 22 - 31 mmol/L [facility] Anion Gap 16(H) 5 - 15 mmol/L [facility] Calcium 9.6 8.5 - 10.5 mg/dL [facility] Protein, Total 6.5 6.1 - 8.0 g/dL [facility] Albumin 3.7 3.2 - 5.2 g/dL [facility] Aspartate Aminotransferase 58(H) 0 - 30 unit/L [facility] Alanine Aminotransferase 66(H) 0 - 30 unit/L [facility] Alkaline Phosphatase 86 35 - 105 unit/L [facility] Bilirubin, Total 0.6 0.2 - 1.3 mg/dL [facility] Est Glomerular Filtration Rate 17(L) >=60 mL/min/1. 73 m?? [facility] [...] MD CHEMISTRY ORDERABLE S Performing Organization Address [facility] Co de Phone Number [facility] [place] [address] * Potassium (05/16/2023 11:15 PM EDT) Potassium 3.7 3.5 - 5.0 mmol/L [facility] [...] MD CHEMISTRY ORDERABLE S Performing Organization Address [facility] Co de Phone Number [facility] [place] [address] * Magnesium (05/16/2023 5:22 PM EDT) Magnesium 0.96 0.69 - 1.07 mmol/L [facility] Blood 05/16/2023 5:22 PM EDT 05/16/2023 5:27 PM EDT Narrative Resulting Agency Comment Spec In Lab Alirio Hudson MD CHEMISTRY ORDERABLE S Performing Organization Address [facility] Co de Phone Number [facility] [place] [address] * (ABNORMAL) Basic Metabolic Panel (non-fasting) (05/16/2023 5:22 PM EDT) Glucose 106 65 - 199 mg/dL [facility] Comment:Diabetes: >=200 mg/d L plus symptoms Blood Urea Nitrogen 103(H) 8 - 18 mg/dL [facility] Creatinine 3.91(H) 0.70 - 1.20 mg/dL [facility] Comment:result rechecked-imm Sodium 132(L) 135 - 145 mmol/L [facility] Potassium 3.6 3.5 - 5.0 mmol/L [facility] Comment: Please note: ??Patients with WBC >100,000 may have falsely elevated Potassium levels. ??For accurate Potassium quantification in these patients send serum separator tube (gold top) for subsequent determinations. ??Contact the Clinical Chemistry Laboratory if there are any questions. Chloride 92(L) 98 - 107 mmol/L [facility] Carbon Dioxide 22 22 - 31 mmol/L [facility] Anion Gap 18(H) 5 - 15 mmol/L [facility] Calcium 9.7 8.5 - 10.5 mg/dL [facility] Est Glomerular Filtration Rate 12(L) >=60 mL/min/1. 73 m?? [facility] [...] Lab Alirio Hudson MD CHEMISTRY ORDERABLE S [facility] [place] [address] * (ABNORMAL) Potassium (05/16/2023 11:43 AM EDT) Potassium 3.3(L) 3.5 - 5.0 mmol/L [facility] [...] [place]/ZIP Co de Phone Number [facility] [place] [address] * (ABNORMAL) Ferritin (05/16/2023 4:41 AM EDT) Ferritin 1,813(H) 30 - 400 ng/mL [facility] Comment: Pediatric reference ranges not verified at [facility], interpret with caution. Reference ranges for females greater than 50 years of age approach values for men, i.e., 30-400 ng/mL. Blood 05/16/2023 4:41 AM EDT 05/16/2023 4:54 AM EDT Narrative Resulting Agency Comment Spec In Lab Kristopher Ayoub MD CHEMISTRY ORDERABLES Performing Organization Address City/[facility]/ZIP Co de Phone Number [facility] [place] [address] * (ABNORMAL) PTH (05/16/2023 4:41 AM EDT) [facility] Parathyroid Hormone 120(H) 15 - 65 pg/mL [facility] Blood 05/16/2023 4:41 AM EDT 05/16/2023 4:54 AM EDT Narrative Resulting Agency Comment Spec In Lab Kristopher Ayoub MD CHEMISTRY ORDERABLES Performing Organization Address City/[facility]/ZIP Co de Phone Number [facility] [place] [address] * Vitamin D, 25-Hydroxy (05/16/2023 4:41 AM EDT) [facility] Vitamin D Total 25 OH 33 21 - 100 ng/mL [facility] Vit D Interp Sufficient [facility] Blood 05/16/2023 4:41 AM EDT 05/16/2023 4:54 AM EDT Narrative Resulting Agency Comment Spec In Lab Kristopher Ayoub MD CHEMISTRY ORDERABLES [facility] [place] [address] * (ABNORMAL) Blood Gas Venous ([facility]) (05/16/2023 4:22 AM EDT) pH, Venous 7.41 7.32 - 7.42 [facility] PCO2, Venous 32(L) 41 - 51 mmHg [facility] PO2, Venous 73(H) 25 - 40 mmHg [facility] Bicarbonate, Venous 19.6 mmol/L [facility] Base Excess, Venous -5.1 mmol/L [facility] Hgb Blood Gas 9.7(L) 11.7 - 15.5 g/dL [facility] Oxyhemoglobin, Venous 92.8 % [facility] Carboxyhemoglob in, Venous 0.1 % [facility] Comment: Nonsmokers: 0.5-1.5% COHB Smokers: Variable, but usually less than 10% Toxic: 20-30% COHB Lethal: Greater than 60% COHB Methemoglobin, Venous 0.3 <=1.5 % [facility] Na Whole Blood 130(L) 135 - 145 mmol/L [facility] K Whole Blood 3.7 3.5 - 5.0 mmol/L [facility] Comment: Please note: Patients with WBC >100,000 may have falsely elevated Potassium levels. Contact the Clinical Chemistry Laboratory if there are any questions. ICa Whole Blood 1.15 1.15 - 1.33 mmol/L [facility] Comment: Note: ??Total bilirubin higher than 20 mg/dL may lead to falsely low ionized calcium. CL Whole Blood 95(L) 98 - 107 mmol/L [facility] Gluc Whole Bld 82 65 - 199 mg/dL [facility] Comment:Diabetes: >=200 mg/d L plus symptoms Lactate WB 1.1 0.5 - 2.2 mmol/L [facility] Blood Gas Source Venous [facility] Blood Venous Draw / Unknown 05/16/2023 4:22 AM EDT 05/16/2023 4:31 AM EDT Narrative Resulting Agency Comment Spec In Lab Bonita TOBAR [place] [address] * (ABNORMAL) Differential, Automated (05/16/2023 4:20 AM EDT) Neutrophil % 84.1 % [facility] Neutrophil Absolute 6.22(H) 1.70 - 6.10 x10(3)/mc L [facility] Lymph % 5.8 % [facility] Lymphocytes Abs 0.4(L) 0.9 - 3.2 x10(3)/mc L [facility] Monocyte % 8.8 % [facility] Monocyte Abs 0.6 0.3 - 0.9 x10(3)/mc L [facility] Eos % 0.4 % [facility] Eosinophils Abs 0.0 0.0 - 0.4 x10(3)/mc L [facility] Basophil % 0.0 % [facility] Baso Absolute 0.0 0.0 - 0.1 x10(3)/mc L [facility] Immature Gran % 0.90 % [facility] Comment: Immature granulocytes(IG's)percentage and absolute count will include metamyelocytes, myelocytes, and promyelocytes. Blood smears from CBCs yielding IG's will be scanned manually for concordance. If this scan disagrees with the automated IG or if promyelocytes are noted, a manual differential will be performed. Immature Gran Absolute 0.07(H) 0.00 - 0.04 x10(3)/mc L [facility] Blood 05/16/2023 4:20 AM EDT 05/16/2023 4:29 AM EDT Narrative Resulting Agency Comment Spec In Lab James Agustin MD HEMATOLOGY ORDER JODIE Performing Organization Address City/[facility]/[place] [address] * (ABNORMAL) Hemogram (05/16/2023 4:20 AM EDT) White Blood Cell 7.4 4.0 - 9.5 x10(3)/mc L [facility] Red Blood Cell 2.40(L) 4.00 - 5.21 x10(6)/mc L [facility] Hemoglobin 7.8(L) 11.7 - 15.5 g/dL [facility] Hematocrit 22.5(L) 35.7 - 45.8 % [facility] Mean Cell Volume 93.8 82.6 - 94.4 fL [facility] Mean Cell Hemoglobin 32.5(H) 27.1 - 32.0 pg [facility] Mean Cell Hemoglobin Concentration 34.7 31.7 - 35.0 g/dL [facility] Platelet 120(L) 145 - 357 x10(3)/mc L [facility] RDW Standard Deviation 42.9 37.0 - 46.0 fL [facility] RDW coefficient of variation 12.9 11.5 - 14.1 % [facility] Mean Platelet Volume 11.3 7.6 - 12.9 fL [facility] NRBC% auto 0.7 % [facility] NRBC Absolute 0.050(H) 0.000 - 0.000 x10(3)/ L [facility] Blood 05/16/2023 4:20 AM EDT 05/16/2023 4:29 AM EDT Narrative Resulting Agency Comment Spec In Lab James Agustin MD HEMATOLOGY ORDER JODIE [facility] [place] [address] * (ABNORMAL) Basic Metabolic Panel (non-fasting) (05/16/2023 4:20 AM EDT) Glucose 89 65 - 199 mg/dL [facility] Comment:Diabetes: >=200 mg/d L plus symptoms Blood Urea Nitrogen 108(H) 8 - 18 mg/dL [facility] Creatinine 4.74(H) 0.70 - 1.20 mg/dL [facility] Comment:result rechecked-OLIV[facility] Sodium 132(L) 135 - 145 mmol/L [facility] Potassium 3.9 3.5 - 5.0 mmol/L [facility] Comment: Please note: ??Patients with WBC >100,000 may have falsely elevated Potassium levels. ??For accurate Potassium quantification in these patients send serum separator tube (gold top) for subsequent determinations. ??Contact the Clinical Chemistry Laboratory if there are any questions. Chloride 95(L) 98 - 107 mmol/L [facility] Carbon Dioxide 18(L) 22 - 31 mmol/L [facility] Anion Gap 19(H) 5 - 15 mmol/L [facility] Calcium 9.2 8.5 - 10.5 mg/dL [facility] Est Glomerular Filtration Rate 10(L) >=60 mL/min/1. 73 m?? [facility] [...] Lab Alirio Hudson MD CHEMISTRY ORDERABLE S [facility] [place] [address] * (ABNORMAL) Iron and TIBC (05/16/2023 4:20 AM EDT) Iron 31 30 - 150 mcg/dL [facility] TIBC 259 250 - 450 mcg/dL [facility] Iron Saturation 12(L) 20 - 50 % [facility] Blood 05/16/2023 4:20 AM EDT 05/16/2023 4:29 AM EDT Narrative Resulting Agency Comment Spec In Lab Kristopher Ayoub MD CHEMISTRY ORDERABLES [facility] [place] [address] * (ABNORMAL) Basic Metabolic Panel (non-fasting) (05/15/2023 12:50 AM EDT) Glucose 101 65 - 199 mg/dL [facility] Comment:Diabetes: >=200 mg/d L plus symptoms Blood Urea Nitrogen 109(H) 8 - 18 mg/dL [facility] Creatinine 5.62(H) 0.70 - 1.20 mg/dL [facility] Comment:result rechecked-KS Sodium 131(L) 135 - 145 mmol/L [facility] Comment:result rechecked-KS Potassium 3.7 3.5 - 5.0 mmol/L [facility] Comment: result rechecked-KS Please note: ??Patients with WBC >100,000 may have falsely elevated Potassium levels. ??For accurate Potassium quantification in these patients send serum separator tube (gold top) for subsequent determinations. ??Contact the Clinical Chemistry Laboratory if there are any questions. Chloride 92(L) 98 - 107 mmol/L [facility] Comment:result rechecked-KS Carbon Dioxide 18(L) 22 - 31 mmol/L [facility] Comment:result rechecked-KS Anion Gap 21(H) 5 - 15 mmol/L [facility] Calcium 8.9 8.5 - 10.5 mg/dL [facility] Est Glomerular Filtration Rate 8(L) >=60 mL/min/1. 73 m?? [facility] [...] [place]/ZIP Co de Phone Number [facility] [place] [address] * (ABNORMAL) Hemogram (05/15/2023 12:50 AM EDT) White Blood Cell 9.1 4.0 - 9.5 x10(3)/mc L [facility] Red Blood Cell 2.19(L) 4.00 - 5.21 x10(6)/mc L [facility] Hemoglobin 7.2(L) 11.7 - 15.5 g/dL [facility] Hematocrit 20.6(L) 35.7 - 45.8 % [facility] Mean Cell Volume 94.1 82.6 - 94.4 fL [facility] Mean Cell Hemoglobin 32.9(H) 27.1 - 32.0 pg [facility] Mean Cell Hemoglobin Concentration 35.0 31.7 - 35.0 g/dL [facility] Platelet 109(L) 145 - 357 x10(3)/mc L [facility] RDW Standard Deviation 43.6 37.0 - 46.0 fL [facility] RDW coefficient of variation 12.9 11.5 - 14.1 % [facility] Mean Platelet Volume 10.4 7.6 - 12.9 fL [facility] NRBC% auto 2.1 % [facility] NRBC Absolute 0.190(H) 0.000 - 0.000 x10(3)/mc L [facility] Blood 05/15/2023 12:5 0 AM EDT 05/15/2023 12:52 AM EDT Narrative Resulting Agency Comment Spec In Lab Alirio Hudson MD HEMATOLOGY ORDERABL ES Performing Organization Address [facility] Co de Phone Number [facility] [place] [address] * (ABNORMAL) BLOOD GAS 2 VENOUS (05/15/2023 12:49 AM EDT) pH, Venous 7.33 7.32 - 7.42 [facility] PCO2, Venous 37(L) 41 - 51 mmHg [facility] PO2, Venous 34 25 - 40 mmHg [facility] Bicarbonate, Venous 19.1 mmol/L [facility] Base Excess, Venous -6.8 mmol/L [facility] Hgb Blood Gas 10.8(L) 11.7 - 15.5 g/dL [facility] Oxyhemoglobin, Venous 58.1 % [facility] Carboxyhemoglob in, Venous 0.3 % [facility] Comment: Nonsmokers: 0.5-1.5% COHB Smokers: Variable, but usually less than 10% Toxic: 20-30% COHB Lethal: Greater than 60% COHB Methemoglobin, Venous 0.6 <=1.5 % [facility] Na Whole Blood 136 135 - 145 mmol/L [facility] K Whole Blood 3.7 3.5 - 5.0 mmol/L [facility] Comment: Please note: Patients with WBC >100,000 may have falsely elevated Potassium levels. Contact the Clinical Chemistry Laboratory if there are any questions. ICa Whole Blood 1.12(L) 1.15 - 1.33 mmol/L [facility] Comment: Note: ??Total bilirubin higher than 20 mg/dL may lead to falsely low ionized calcium. CL Whole Blood 95(L) 98 - 107 mmol/L [facility] Gluc Whole Bld 101 65 - 199 mg/dL [facility] Comment:Diabetes: >=200 mg/d L plus symptoms Lactate WB 1.3 0.5 - 2.2 mmol/L [facility] Flow, Mike 1.0 LPM [facility] Blood Gas Source Venous [facility] Blood 05/15/2023 12:4 9 AM EDT 05/15/2023 12:49 AM EDT Alirio Hudson MD POINT OF CARE TEST ORDERABLES [facility] [place] [address] * US Retroperitoneal Complete (05/14/2023 3:53 PM [...] have questions, please contact the health career orientation teacher that requested your imaging first. ? Hayden Robledo, Staff Physician Electronically Signed Final Report ?? 05/14/2023 04:39 pm Narrative 05/14/2023 4:39 PM EDT Renal ? (Signed Final 05/14/2023 04:39 pm) PATIENT INFO: ID #: ? [id number] ?: ??[birth year] (67 yrs)(F) Name: ? PURNIMA THACKER ?Visit Date: 05/14/2023 03:44 pm PERFORMED BY: Attending: ?Meena CULP, Hayden Stafford Resident: ? Nell CULP, Anand August Performed By: ? Consuelo Tello RDMS Referred By: ?ALIRIO HUDSON Location: ? [facility] SERVICE(S) PROVIDED: URETRO - Retroperitoneal Complete - [id number] ? [id number] INDICATIONS: [facility] COMPARISON: CT: Abdomen/Pelvis 05/11/23 RIGHT [...] 05/14/2023 04:39 pm) PATIENT INFO: ID #: [id number] : 55 (67 yrs)(F) Name: PURNIMA THACKER Visit Date: 05/14/2023 03:44 pm PERFORMED BY: Attending: Hayden Robledo MD Resident: Anand Camejo MD Performed By: Consuelo Tello RDMS Referred By: ALIRIO HUDSON Location: [facility] SERVICE(S) PROVIDED: URETRO - Retroperitoneal Complete - [id number] INDICATIONS: [facility] COMPARISON: CT: Abdomen/Pelvis 05/11/23 RIGHT [...] have questions, please contact the health career orientation teacher that requested your imaging first. Hayden Robledo, Staff Physician Electronically Signed Final Report 05/14/2023 04:39 pm Alirio Hudson MD IMG US GEN ORDERABL ES * CK (05/14/2023 3:17 PM EDT) Creatine Kinase 123 0 - 160 unit/L [facility] Blood 05/14/2023 3:17 PM EDT 05/14/2023 3:31 PM EDT Narrative Resulting Agency Comment Spec In Lab Alirio Hudson MD CHEMISTRY ORDERABLE S Performing Organization Address [facility] Co de Phone Number [facility] [place] [address] * (ABNORMAL) Uric acid (05/14/2023 3:17 PM EDT) Uric Acid 14.9(H) 2.5 - 6.5 mg/dL [facility] Blood 05/14/2023 3:17 PM EDT 05/14/2023 3:31 PM EDT Narrative Resulting Agency Comment Spec In Lab Alirio Hudson MD CHEMISTRY ORDERABLE S Performing Organization Address [facility] [place] [address] * (ABNORMAL) Osmolality (05/14/2023 3:17 PM EDT) Osmolality 311(H) 275 - 295 mOsm/kg [facility] Blood 05/14/2023 3:17 PM EDT 05/14/2023 3:31 PM EDT Narrative Resulting Agency Comment Spec In Lab Alirio Hudson MD [place] [address] * (ABNORMAL) Differential, Automated (05/14/2023 1:10 AM EDT) Pathologist [facility] Neutrophil % 87.2 % [facility] Neutrophil Absolute 9.74(H) 1.70 - 6.10 x10(3)/mc L [facility] Lymph % 3.9 % [facility] Lymphocytes Abs 0.4(L) 0.9 - 3.2 x10(3)/mc L [facility] Monocyte % 7.9 % [facility] Monocyte Abs 0.9 0.3 - 0.9 x10(3)/mc L [facility] Eos % 0.0 % [facility] Eosinophils Abs 0.0 0.0 - 0.4 x10(3)/mc L [facility] Basophil % 0.1 % [facility] Baso Absolute 0.0 0.0 - 0.1 x10(3)/mc L [facility] Immature Gran % 0.90 % [facility] Comment: Immature granulocytes(IG's)percentage and absolute count will include metamyelocytes, myelocytes, and promyelocytes. Blood smears from CBCs yielding IG's will be scanned manually for concordance. If this scan disagrees with the automated IG or if promyelocytes are noted, a manual differential will be performed. Immature Gran Absolute 0.10(H) 0.00 - 0.04 x10(3)/mc L [facility] Blood 05/14/2023 1:10 AM EDT 05/14/2023 1:24 AM EDT Narrative Resulting Agency Comment Spec In Lab [place]EMATOLOG[facility] ORDERABLE S [facility] [place] [address] * (ABNORMAL) Hemogram (05/14/2023 1:10 AM EDT) White Blood Cell 11.2(H) 4.0 - 9.5 x10(3)/mc L [facility] Red Blood Cell 2.19(L) 4.00 - 5.21 x10(6)/mc L [facility] Hemoglobin 7.2(L) 11.7 - 15.5 g/dL [facility] Hematocrit 20.3(L) 35.7 - 45.8 % [facility] Mean Cell Volume 92.7 82.6 - 94.4 fL [facility] Mean Cell Hemoglobin 32.9(H) 27.1 - 32.0 pg [facility] Mean Cell Hemoglobin Concentration 35.5(H) 31.7 - 35.0 g/dL [facility] Platelet 112(L) 145 - 357 x10(3)/mc L [facility] RDW Standard Deviation 41.4 37.0 - 46.0 fL [facility] RDW coefficient of variation 12.5 11.5 - 14.1 % [facility] Mean Platelet Volume 10.4 7.6 - 12.9 fL [facility] NRBC% auto 1.5 % [facility] NRBC Absolute 0.170(H) 0.000 - 0.000 x10(3)/mc L [facility] Blood 05/14/2023 1:10 AM EDT 05/14/2023 1:24 AM EDT Narrative Resulting Agency Comment Spec In Lab Bonita TOBAR HEMATOLOGY ORDERABLE S [facility] [place] [address] * (ABNORMAL) Comprehensive metabolic panel (non-fasting) (05/14/2023 1:10 AM EDT) Glucose 120 65 - 199 mg/dL [facility] Comment:Diabetes: >=200 mg/d L plus symptoms Blood Urea Nitrogen 98(H) 8 - 18 mg/dL [facility] Creatinine 4.80(H) 0.70 - 1.20 mg/dL [facility] Comment:result rechecked-ssc Sodium 132(L) 135 - 145 mmol/L [facility] Potassium 4.1 3.5 - 5.0 mmol/L [facility] Comment: Please note: ??Patients with WBC >100,000 may have falsely elevated Potassium levels. ??For accurate Potassium quantification in these patients send serum separator tube (gold top) for subsequent determinations. ??Contact the Clinical Chemistry Laboratory if there are any questions. Chloride 94(L) 98 - 107 mmol/L [facility] Carbon Dioxide 18(L) 22 - 31 mmol/L [facility] Anion Gap 20(H) 5 - 15 mmol/L [facility] Calcium 8.5 8.5 - 10.5 mg/dL [facility] Protein, Total 5.8(L) 6.1 - 8.0 g/dL [facility] Albumin 3.6 3.2 - 5.2 g/dL [facility] Aspartate Aminotransferase 319(H) 0 - 30 unit/L [facility] Alanine Aminotransferase 437(H) 0 - 30 unit/L [facility] Alkaline Phosphatase 86 35 - 105 unit/L [facility] Bilirubin, Total 0.4 0.2 - 1.3 mg/dL [facility] Est Glomerular Filtration Rate 9(L) >=60 mL/min/1. 73 m?? [facility] [...] MD CHEMISTRY ORDERABLE S Performing Organization Address [facility] Co de Phone Number [facility] [place] [address] * APTT (05/13/2023 10:15 AM EDT) Partial Thromboplastin Time 27 25 - 37 sec [facility] Comment: The PTT is NOT appropriate for heparin monitoring. Use the Anti-Xa level for heparin monitoring (HEP UFH) or LMWH monitoring (HEP LMW). A PTT less than 37 seconds generally indicates adequate hemostasis. Blood 05/13/2023 10:1 5 AM EDT 05/13/2023 10:46 AM EDT Narrative Resulting Agency Comment Spec In Lab Alirio Hudson MD HEMATOLOGY ORDERABL ES Performing Organization Address [facility] Co de Phone Number [facility] [place] [address] * (ABNORMAL) Prothrombin Time (05/13/2023 10:15 AM EDT) Prothrombin Time 14.6(H) 9.4 - 12.5 sec [facility] International Normalization Ratio 1.3 [facility] Comment: An INR <2.0 indicates [...] MD HEMATOLOGY ORDERABL ES Performing Organization Address [facility] Co de Phone Number [facility] [place] [address] * EKG 12 Lead (05/13/2023 9:22 AM EDT) Pathologist [facility] Ventricular rate 92 BPM MUSE SYSTEM Atrial Rate 92 BPM MUSE SYSTEM P-R Interval 140 ms MUSE SYSTEM QRS Duration 104 ms MUSE SYSTEM Q-T Interval 384 ms MUSE SYSTEM QTC Calculated (Bezet) 474 ms MUSE SYSTEM Calculated P Acworth 33 degrees MUSE SYSTEM Calculated R Acworth 41 degrees MUSE SYSTEM Calculated T Acworth -35 degrees MUSE SYSTEM INTERPRETATION Sinus rhythm with frequent Premature ventricular complexes Septal infarct , age undetermined ST & T wave abnormality, consider lateral ischemia Abnormal ECG When compared with ECG of 12-MAY-2023 10:10, Premature ventricular complexes are now Present I personally reviewed the tracing and edited the fellows interpretation Confirmed by fellow MD Anitha, Carissa ([id number]) on 05/13/2023 3:25:30 PM Confirmed by Maxx Best ([id number]) on 05/13/2023 8:30:56 PM MUSE SYSTEM 05/13/2023 9:22 AM EDT 05/13/2023 8:30 PM EDT Alirio Hudson MD ECG ORDERABLES MUSE SYSTEM * (ABNORMAL) Differential, Automated (05/13/2023 1:15 AM EDT) [facility] Neutrophil % 88.1 % [facility] Neutrophil Absolute 7.62(H) 1.70 - 6.10 x10(3)/mc L [facility] Lymph % 3.1 % [facility] Lymphocytes Abs 0.3(L) 0.9 - 3.2 x10(3)/mc L [facility] Monocyte % 7.9 % [facility] Monocyte Abs 0.7 0.3 - 0.9 x10(3)/mc L [facility] Eos % 0.0 % [facility] Eosinophils Abs 0.0 0.0 - 0.4 x10(3)/mc L [facility] Basophil % 0.1 % [facility] Baso Absolute 0.0 0.0 - 0.1 x10(3)/mc L [facility] Immature Gran % 0.80 % [facility] Comment: Immature granulocytes(IG's)percentage and absolute count will include metamyelocytes, myelocytes, and promyelocytes. Blood smears from CBCs yielding IG's will be scanned manually for concordance. If this scan disagrees with the automated IG or if promyelocytes are noted, a manual differential will be performed. Immature Gran Absolute 0.07(H) 0.00 - 0.04 x10(3)/mc L [facility] Blood 05/13/2023 1:15 AM EDT 05/13/2023 1:29 AM EDT Narrative Resulting Agency Comment Spec In Lab Lorri TOBAR HEMATOLOGY ORDERABLE S [facility] [place] [address] * (ABNORMAL) Hemogram (05/13/2023 1:15 AM EDT) White Blood Cell 8.6 4.0 - 9.5 x10(3)/[facility] Red Blood Cell 2.37(L) 4.00 - 5.21 x10(6)/[facility] Hemoglobin 7.8(L) 11.7 - 15.5 g/dL [facility] Hematocrit 22.2(L) 35.7 - 45.8 % [facility] Mean Cell Volume 93.7 82.6 - 94.4 fL [facility] Mean Cell Hemoglobin 32.9(H) 27.1 - 32.0 pg [facility] Mean Cell Hemoglobin Concentration 35.1(H) 31.7 - 35.0 g/dL [facility] Platelet 130(L) 145 - 357 x10(3)/[facility] RDW Standard Deviation 41.7 37.0 - 46.0 fL [facility] RDW coefficient of variation 12.5 11.5 - 14.1 % [facility] Mean Platelet Volume 10.2 7.6 - 12.9 fL [facility] NRBC% auto 0.5 % [facility] NRBC Absolute 0.040(H) 0.000 - 0.000 x10(3)/ L [facility] Blood 05/13/2023 1:15 AM EDT 05/13/2023 1:29 AM EDT Narrative Resulting Agency Comment Spec In Lab Lorri TOBAR HEMATOLOGY ORDERABLE S Performing Organization Address City/[facility]/ZIP Co de Phone Number [facility] [place] [address] * (ABNORMAL) Hepatic Function Panel (05/13/2023 1:15 AM EDT) Protein, Total 5.5(L) 6.1 - 8.0 g/dL [facility] Albumin 3.0(L) 3.2 - 5.2 g/dL [facility] Aspartate Aminotransferase 792(H) 0 - 30 unit/L [facility] Alanine Aminotransferase 903(H) 0 - 30 unit/L [facility] Alkaline Phosphatase 85 35 - 105 unit/L [facility] Bilirubin, Total 0.5 0.2 - 1.3 mg/dL [facility] Bilirubin, Direct 0.3 0.0 - 0.3 mg/dL [facility] Blood 05/13/2023 1:15 AM EDT 05/13/2023 1:29 AM EDT Narrative Resulting Agency Comment Spec In Lab Alirio Hudson MD CHEMISTRY ORDERABLE S Performing Organization Address [facility] Co de Phone Number [facility] [place] [address] * (ABNORMAL) Basic Metabolic Panel (non-fasting) (05/13/2023 1:15 AM EDT) Glucose 107 65 - 199 mg/dL [facility] Comment:Diabetes: >=200 mg/d L plus symptoms Blood Urea Nitrogen 82(H) 8 - 18 mg/dL [facility] Creatinine 3.15(H) 0.70 - 1.20 mg/dL [facility] Comment:result rechecked-OG Sodium 132(L) 135 - 145 mmol/L [facility] Potassium 3.8 3.5 - 5.0 mmol/L [facility] Comment: Please note: ??Patients with WBC >100,000 may have falsely elevated Potassium levels. ??For accurate Potassium quantification in these patients send serum separator tube (gold top) for subsequent determinations. ??Contact the Clinical Chemistry Laboratory if there are any questions. Chloride 95(L) 98 - 107 mmol/L [facility] Carbon Dioxide 20(L) 22 - 31 mmol/L [facility] Anion Gap 17(H) 5 - 15 mmol/L [facility] Calcium 8.3(L) 8.5 - 10.5 mg/dL [facility] Est Glomerular Filtration Rate 16(L) >=60 mL/min/1. 73 m?? [facility] [...] Lab Alirio Hudson MD CHEMISTRY ORDERABLE S [facility] [place] [address] * (ABNORMAL) BLOOD GAS 2 ARTERIAL (05/12/2023 3:57 PM EDT) pH, Arterial 7.39 7.35 - 7.45 [facility] PCO2, Arterial 33(L) 35 - 45 mmHg [facility] PO2, Arterial 101 85 - 104 mmHg [facility] Bicarbonate, Arterial 19.5(L) 20.0 - 26.0 mmol/L [facility] Base Excess, Arterial -5.5(L) -3.0 - 3.0 mmol/L [facility] Hgb Blood Gas 9.8(L) 11.7 - 15.5 g/dL [facility] Oxyhemoglobin, Arterial 95.2 94.0 - 97.0 % [facility] Carboxyhemoglob in, Arterial 0.2 % [facility] Comment: Nonsmokers: 0.5-1.5% COHB Smokers: Variable, but usually less than 10% Toxic: 20-30% COHB Lethal: Greater than 60% COHB Methemoglobin, Arterial 0.8 <=1.5 % [facility] Na Whole Blood 129(L) 135 - 145 mmol/L [facility] K Whole Blood 3.8 3.5 - 5.0 mmol/L [facility] Comment: Please note: Patients with WBC >100,000 may have falsely elevated Potassium levels. Contact the Clinical Chemistry Laboratory if there are any questions. ICa Whole Blood 1.05(L) 1.15 - 1.33 mmol/L [facility] Comment: Note: ??Total bilirubin higher than 20 mg/dL may lead to falsely low ionized calcium. CL Whole Blood 96(L) 98 - 107 mmol/L [facility] Gluc Whole Bld 178 65 - 199 mg/dL [facility] Comment:Diabetes: >=200 mg/d L plus symptoms. Lactate WB 1.5 0.5 - 2.2 mmol/L [facility] FIO2 Art 40 % [facility] PF Ratio Art 252 [facility] Blood 05/12/2023 3:57 PM EDT 05/12/2023 3:57 PM EDT Alirio Hudson MD POINT OF CARE TEST ORDERABLES Performing Organization Address City/State/[facility] Co de Phone Number [facility] [place] [address] * (ABNORMAL) Coox2 (05/12/2023 2:25 PM EDT) pO2, Coox [address] [facility] Hgb Blood Gas 9.5(L) 11.7 - 15.5 g/dL [facility] Oxyhemoglobin, Coox 59.9 % [facility] Carboxyhemoglo bin, Coox 0.3 % [facility] Comment: Nonsmokers: 0.5-1.5% COHB Smokers: Variable, but usually less than 10% Toxic: 20-30% COHB Lethal: Greater than 60% COHB Methemoglobin, Coox 0.7 <=1.5 % [facility] Source Coox Mixed Venous [facility] Blood 05/12/2023 2:25 PM EDT 05/12/2023 2:25 PM EDT Alirio Hudson MD POINT OF CARE TEST ORDERABLES [facility] [address] [place] [address] * (ABNORMAL) BLOOD GAS 2 ARTERIAL (05/12/2023 2:23 PM EDT) pH, Arterial 7.37 7.35 - 7.45 [facility] PCO2, Arterial 36 35 - 45 mmHg [facility] PO2, Arterial 102 85 - 104 mmHg [facility] Bicarbonate, Arterial 20.4 20.0 - 26.0 mmol/L [facility] Base Excess, Arterial -4.8(L) -3.0 - 3.0 mmol/L [facility] Hgb Blood Gas 12.7 11.7 - 15.5 g/dL [facility] Oxyhemoglobin, Arterial 95.4 94.0 - 97.0 % [facility] Carboxyhemoglob in, Arterial 0.3 % [facility] Comment: Nonsmokers: 0.5-1.5% COHB Smokers: Variable, but usually less than 10% Toxic: 20-30% COHB Lethal: Greater than 60% COHB Methemoglobin, Arterial 0.7 <=1.5 % [facility] Na Whole Blood 129(L) 135 - 145 mmol/L [facility] K Whole Blood 3.7 3.5 - 5.0 mmol/L [facility] Comment: Please note: Patients with WBC >100,000 may have falsely elevated Potassium levels. Contact the Clinical Chemistry Laboratory if there are any questions. ICa Whole Blood 1.05(L) 1.15 - 1.33 mmol/L [facility] Comment: Note: ??Total bilirubin higher than 20 mg/dL may lead to falsely low ionized calcium. CL Whole Blood 95(L) 98 - 107 mmol/L [facility] Gluc Whole Bld 168 65 - 199 mg/dL [facility] Comment:Diabetes: >=200 mg/d L plus symptoms. Lactate WB 1.8 0.5 - 2.2 mmol/L [facility] FIO2 Art 40 % [facility] PF Ratio Art 255 [facility] Blood 05/12/2023 2:23 PM EDT 05/12/2023 2:23 PM EDT Alirio Hudson MD POINT OF CARE TEST ORDERABLES [facility] [place] [address] * (ABNORMAL) Troponin (05/12/2023 2:05 PM EDT) Troponin-T, High Sensitivity 1,022(H) <=14 ng/L [facility] Comment: This patient's troponin T [...] troponin value can be found in the [facility] Test Catalog Troponin - [facility] Test Catalog Reference: Fourth [place] Definition of Myocardial Infarction. Journal of the [place] [employer] 2018;72:9328-6836 Blood 05/12/2023 2:05 PM EDT 05/12/2023 2:14 PM EDT Narrative Resulting Agency Comment Spec In Lab Alirio Hudson MD CHEMISTRY ORDERABLE S Performing Organization Address City/[facility]/ZIP Co de Phone Number [facility] [place] [address] * (ABNORMAL) Hemoglobin (05/12/2023 2:05 PM EDT) Hemoglobin 8.5(L) 11.7 - 15.5 g/dL [facility] Blood 05/12/2023 2:05 PM EDT 05/12/2023 2:14 PM EDT Narrative Resulting Agency Comment Spec In Lab Alirio Hudson MD HEMATOLOGY ORDERABL ES Performing Organization Address [facility] Co de Phone Number [facility] [place] [address] * Potassium (05/12/2023 2:05 PM EDT) Potassium 3.9 3.5 - 5.0 mmol/L [facility] [...] MD CHEMISTRY ORDERABLE S Performing Organization Address [facility] Co de Phone Number [facility] [place] [address] * (ABNORMAL) BLOOD GAS 2 ARTERIAL (05/12/2023 11:05 AM EDT) pH, Arterial 7.34(L) 7.35 - 7.45 [facility] PCO2, Arterial 42 35 - 45 mmHg [facility] PO2, Arterial 73(L) 85 - 104 mmHg [facility] Bicarbonate, Arterial 22.1 20.0 - 26.0 mmol/L [facility] Base Excess, Arterial -3.6(L) -3.0 - 3.0 mmol/L [facility] Hgb Blood Gas 9.3(L) 11.7 - 15.5 g/dL [facility] Oxyhemoglobin, Arterial 89.3(L) 94.0 - 97.0 % [facility] Carboxyhemoglob in, Arterial 0.2 % [facility] Comment: Nonsmokers: 0.5-1.5% COHB Smokers: Variable, but usually less than 10% Toxic: 20-30% COHB Lethal: Greater than 60% COHB Methemoglobin, Arterial 0.9 <=1.5 % [facility] Na Whole Blood 131(L) 135 - 145 mmol/L [facility] K Whole Blood 3.8 3.5 - 5.0 mmol/L [facility] Comment: Please note: Patients with WBC >100,000 may have falsely elevated Potassium levels. Contact the Clinical Chemistry Laboratory if there are any questions. ICa Whole Blood 1.04(L) 1.15 - 1.33 mmol/L [facility] Comment: Note: ??Total bilirubin higher than 20 mg/dL may lead to falsely low ionized calcium. CL Whole Blood 96(L) 98 - 107 mmol/L [facility] Gluc Whole Bld 152 65 - 199 mg/dL [facility] Comment:Diabetes: >=200 mg/d L plus symptoms. Lactate WB 2.8(H) 0.5 - 2.2 mmol/L [facility] FIO2 Art 40 % [facility] PF Ratio Art 182 [facility] Blood 05/12/2023 11:0 5 AM EDT 05/12/2023 11:05 AM EDT Alirio Hudson MD POINT OF CARE TEST ORDERABLES [facility] [place] [address] * (ABNORMAL) BLOOD GAS 2 ARTERIAL (05/12/2023 10:14 AM EDT) pH, Arterial 7.18(Criti gabrielle) 7.35 - 7.45 [facility] Comment:Noted by optical instruments supervisor. PCO2, Arterial 45 35 - 45 mmHg [facility] PO2, Arterial 186(H) 85 - 104 mmHg [facility] Bicarbonate, Arterial 16.2(L) 20.0 - 26.0 mmol/L [facility] Base Excess, Arterial -12.2(L) -3.0 - 3.0 mmol/L [facility] Hgb Blood Gas 10.0(L) 11.7 - 15.5 g/dL [facility] Oxyhemoglobin, Arterial 97.0 94.0 - 97.0 % [facility] Carboxyhemoglob in, Arterial 0.2 % [facility] Comment: Nonsmokers: 0.5-1.5% COHB Smokers: Variable, but usually less than 10% Toxic: 20-30% COHB Lethal: Greater than 60% COHB Methemoglobin, Arterial 0.9 <=1.5 % [facility] Na Whole Blood 129(L) 135 - 145 mmol/L [facility] K Whole Blood 3.6 3.5 - 5.0 mmol/L [facility] Comment: Please note: Patients with WBC >100,000 may have falsely elevated Potassium levels. Contact the Clinical Chemistry Laboratory if there are any questions. ICa Whole Blood 1.10(L) 1.15 - 1.33 mmol/L [facility] Comment: Note: ??Total bilirubin higher than 20 mg/dL may lead to falsely low ionized calcium. CL Whole Blood 97(L) 98 - 107 mmol/L [facility] Gluc Whole Bld 161 65 - 199 mg/dL [facility] Comment:Diabetes: >=200 mg/d L plus symptoms. Lactate WB 3.3(H) 0.5 - 2.2 mmol/L [facility] FIO2 Art 100 % [facility] PF Ratio Art 186 [facility] Blood 05/12/2023 10:1 4 AM EDT 05/12/2023 10:14 AM EDT Alirio Hudson MD POINT OF CARE TEST ORDERABLES [facility] [place] [address] * EKG 12 Lead (05/12/2023 10:10 AM EDT) Ventricular rate 116 BPM MUSE SYSTEM Atrial Rate 116 BPM MUSE SYSTEM P-R Interval 158 ms MUSE SYSTEM QRS Duration 114 ms MUSE SYSTEM Q-T Interval 348 ms MUSE SYSTEM QTC Calculated (Bezet) 483 ms MUSE SYSTEM Calculated P Acworth 37 degrees MUSE SYSTEM Calculated R Acworth 31 degrees MUSE SYSTEM Calculated T Acworth -138 degrees MUSE SYSTEM INTERPRETATION Sinus tachycardia [...] interpretation Confirmed by fellow MD Anuja, Jim ([id number]) on 05/12/2023 1:04:20 PM Confirmed by MD Mono, Eleni ([id number]) on 05/12/2023 9:28:34 PM MUSE SYSTEM 05/12/2023 [...] course of the esophagus and outside the sapbg-pr-dhjz. Interval retraction of right IJ approach pulmonary [...] expected course ofthe esophagus and outside the bdvst-rd-elit. Interval retraction of right IJ approach pulmonary [...] orientation teacher that requested your imaging first. Alirio Hudson [...] 1955 ? Height: 154 cm ? Account: [id number] Age: 67 yrs ? Weight: 75 kg Gender: Female ?BSA: 1.7 m2 Ordering Physician: RADHA HOLLINS Referring Physician: RADHA HOLLINS Performed By: Dilma Bee RDCS Reason For Study: Guidance for TAVR procedure Exam Location: [facility]. Interpretation Summary PRE TAVR: There [...] mL/m2. POST TAVR: Normal function of the ndhlo-cd-etrdj prosthesis. See below for hemodynamic parameters. Slight improvement in left and right ventricular systolic function. LVEF now 20-25%. No pericardial effusion. See report for additional findings. Procedure Limited - 88974. Doppler - 15965. Color Doppler - 48554. Left Ventricle Left ventricle is of normal [...] Date: 307:33 AMBP: 96/63 mmHg Patient Location: [address] : 1955 Height: 154 cm Account: [id number] Age: 67 yrs Weight: 75 kg Gender: Female BSA: 1.7 m2 Ordering Physician: RADHA HOLLINS Referring Physician: RADHA HOLLINS Performed By: Dilma Bee RDCS Reason For Study: Guidance for TAVR procedure Exam Location: [facility]. Interpretation Summary PRE TAVR: There [...] 28mL/m2. POST TAVR: Normal function of the csjjr-xe-fklkt prosthesis. See belowfor hemodynamic parameters. Slight improvement in left and right ventricularsystolic function. LVEF now 20-25%. No pericardial effusion. See report for additional findings. Procedure Limited - 36817. Doppler - 96216. Color Doppler - 19525. Left Ventricle Left ventricle is of normal [...] ? Procedure Date: 05/12/2023 ? A #: [id number] ? Primary Physician: Zachary, Antelmo N ? Case #: [id number] ? File Name: [id number] ? Catheterization Order Number: [id number] ? [facility] ? Final Report [place], [place] ? Patient Name: ? Purnima M. Kirstie ? ID#: ?[id number] ? : ?1955 ? Procedure Date: ? May 12, 2023 ? Case #: ? [id number] ? Room: ? 6 ? Case Physicians: ?Antelmo Sharma M.D. ?Start: ?08:03 ?Alirio Hudson M.D. ?Admission: ??05/08/2023 ?Lynda Mcgowan M.D. ? Discharge: ??05/22/2023 ?Fellow: ? Emad Adair Tejeda ? Referring Physician: ??Mario Alberto Chin M.D. ? Procedures: ?* Coronary Angiography ?* Left Heart Catheterization ?* Coronary Stent Insertion ?* Transcatheter Aortic Valve Replacement ?* Vascular Closure Device Deployment ?* Temporary Pacemaker Insertion In Refurbish Technician ?* Endotracheal Intubation By Non-Cath Physician ?* [...] guide. ??A premounted 4.00 x 30 mm [place] was ? deployed with a maximum [...] calculated STS risk score was 30.1%. A uamoh-th-ssymp ?procedure was performed on the pre-existing bioprosthetic stented ?prosthesis. The priority of the tglzl-lf-hybbq procedure was Elective. ?The procedure was performed [...] Lai 3 Ultra RESILIA 23 mm THV (s/a=[id number]) transcatheter ?valve was inserted using standard technique. [...] may require ?modification of this regimen. Consult [facility] Interventional Cardiology for ?questions. ? Conclusions: ?* [...] regimen. ? Comments: ?Successful right transfemoral TAVR Ryufw-nx-Cntxy with a 23 mm Lai 3 ?THV. [...] [facility] Report Patient Name: KirstiePurnima Procedure Date: 05/12/2023 A #: [id number] Primary Physician: Antelmo Sharma Case #: [id number] File Name: [id number] Catheterization Order Number: [id number] [facility] FinalReport [place], [place] Patient Name: Purnima Thacker ID#:[id number] :1955 Procedure Date: May 12, 2023 Case #: [id number] Room: 6 Case Physicians: Antelmo Sharma M.D. Start: 08:03 Alirio Hudson M.D. Admission:05/08/2023 Lynda Mcgowan M.D. Discharge:05/22/2023 Fellow: Rebekah Tejeda M.D. Referring Physician: Mario Alberto Chin M.D. Procedures: * Coronary Angiography * Left Heart Catheterization * Coronary Stent Insertion * Transcatheter Aortic Valve Replacement * Vascular Closure Device Deployment * Temporary Pacemaker Insertion In Refurbish Technician * Endotracheal Intubation By Non-Cath Physician * [...] A premounted 4.00 x 30 mm Nils [place] (MINNA) was deployed with a maximum inflation [...] calculated STS risk score was 30.1%. A eltey-ss-vxvpl procedure was performed on the pre-existing bioprosthetic stented prosthesis. The priority of the oxgtl-uw-bzkre procedure wasElective. The procedure was performed under Moderate sedation performed byLynda Mcgowan M.D. (see anesthesia report for additional details). Alirio Hudson M.D. participated in the case (see Cardiac Surgery reportfor additional details). The TAVR sheath was a 14 Fr Corona eSheath Introducer and theaccess site was femoral. Rapid ventricular pacing was performed. An Corona Lai 3 Ultra RESILIA 23 mm THV (s/w=[id number])transcatheter valve was inserted using standard technique. The [...] situation mayrequire modification of this regimen. Consult [facility] Interventional Cardiologyfor questions. Conclusions: * Nonobstructive disease [...] this regimen. Comments: Successful right transfemoral TAVR Pdnxe-hw-Esxxq with a 23 mmSapien 3 THV. We [...] pH, POC 7.20(Crit ical) 7.35 - 7.45 [facility] Comment:Critical value OKYamel C Lab. pCO2, POC 42 35 - 45 mmHg [facility] pO2, POC 260(H) 85 - 104 mmHg [facility] Base Excess, POC -11.0(L) -3.0 - 3.0 mmol/L [facility] Bicarbonate, POC 16.7(L) 20.0 - 26.0 mmol/L [facility] Sodium, POC 129(L) 135 - 145 mmol/L [facility] POC Potassium 3.8 3.5 - 5.0 mmol/L [facility] Ionized Calcium, POC 1.12(L) 1.15 - 1.33 mmol/L [facility] POC Hematocrit 23.0(L) 34.0 - 45.0 % [facility] POC Calc Hgb 7.8(L) 11.2 - 15.7 g/dL [facility] Comment:The calculation of h emoglobin from hematocrit assumes a normal MCHC. POC Bgas Loc CC Lab [facility] Blood 05/12/2023 8:50 AM EDT 05/13/2023 12:00 PM EDT Alirio Hudson MD CHEMISTRY ORDERABLE S Performing Organization Address City/State/[facility] Co de Phone Number [facility] [place] [address] * (ABNORMAL) Point of Care Blood Gas Historical (05/12/2023 8:10 AM EDT) pH, POC 7.27(Crit ical) 7.35 - 7.45 [facility] Comment:Critical value OKYamel C Lab. pCO2, POC 37 35 - 45 mmHg [facility] pO2, POC 29(Critic al) 85 - 104 mmHg [facility] Comment:Critical value OK C C Lab. Base Excess, POC -10.0(L) -3.0 - 3.0 mmol/L [facility] Bicarbonate, POC 16.7(L) 20.0 - 26.0 mmol/L [facility] Sodium, POC 123(L) 135 - 145 mmol/L [facility] POC Potassium 4.0 3.5 - 5.0 mmol/L [facility] Ionized Calcium, POC 1.12(L) 1.15 - 1.33 mmol/L [facility] POC Hematocrit 27.0(L) 34.0 - 45.0 % [facility] POC Calc Hgb 9.2(L) 11.2 - 15.7 g/dL [facility] Comment:The calculation of h emoglobin from hematocrit assumes a normal MCHC. POC Bgas Loc CC Lab [facility] Blood 05/12/2023 8:10 AM EDT 05/13/2023 12:00 PM EDT Alirio Hudson MD CHEMISTRY ORDERABLE S Performing Organization Address City/[facility]/ZIP Co de Phone Number [facility] [place] [address] * (ABNORMAL) Lactate, whole blood, send to lab ([facility]) (05/12/2023 7:00 AM EDT) Lactate WB 2.4(H) 0.5 - 2.2 mmol/L [facility] Blood 05/12/2023 7:00 AM EDT 05/12/2023 7:09 AM EDT Narrative Resulting Agency Comment Spec In Lab Radha Hollins MD CHEMISTRY ORDERABL ES Performing Organization Address [facility] Co de Phone Number [facility] [place] [address] * (ABNORMAL) Comprehensive metabolic panel (non-fasting) (05/12/2023 6:00 AM EDT) Glucose 167 65 - 199 mg/dL [facility] Comment:Diabetes: >=200 mg/d L plus symptoms Blood Urea Nitrogen 67(H) 8 - 18 mg/dL [facility] Creatinine 2.01(H) 0.70 - 1.20 mg/dL [facility] Sodium 131(L) 135 - 145 mmol/L [facility] Potassium 4.3 3.5 - 5.0 mmol/L [facility] Comment: Please note: ??Patients with WBC >100,000 may have falsely elevated Potassium levels. ??For accurate Potassium quantification in these patients send serum separator tube (gold top) for subsequent determinations. ??Contact the Clinical Chemistry Laboratory if there are any questions. Chloride 97(L) 98 - 107 mmol/L [facility] Carbon Dioxide 14(L) 22 - 31 mmol/L [facility] Anion Gap 20(H) 5 - 15 mmol/L [facility] Calcium 8.6 8.5 - 10.5 mg/dL [facility] Protein, Total 6.3 6.1 - 8.0 g/dL [facility] Albumin 3.5 3.2 - 5.2 g/dL [facility] Aspartate Aminotransferase 1,435(H) 0 - 30 unit/L [facility] Alanine Aminotransferase 1,174(H) 0 - 30 unit/L [facility] Alkaline Phosphatase 100 35 - 105 unit/L [facility] Bilirubin, Total 0.9 0.2 - 1.3 mg/dL [facility] Est Glomerular Filtration Rate 27(L) >=60 mL/min/1. 73 m?? [facility] [...] Lab Radha Hollins MD CHEMISTRY ORDERABL ES [facility] [place] [address] * (ABNORMAL) Coox2 (05/12/2023 5:08 AM EDT) pO2, Coox 24 mmHg [facility] Hgb Blood Gas 10.4(L) 11.7 - 15.5 g/dL [facility] Oxyhemoglobin, Coox 30.7 % [facility] Carboxyhemoglo bin, Coox 0.3 % [facility] Comment: Nonsmokers: 0.5-1.5% COHB Smokers: Variable, but usually less than 10% Toxic: 20-30% COHB Lethal: Greater than 60% COHB Methemoglobin, Coox 0.8 <=1.5 % [facility] Source Coox Mixed Venous [facility] Blood 05/12/2023 5:08 AM EDT 05/12/2023 5:08 AM EDT Radha Hollins MD POINT OF CARE TEST ORDERABLES Performing Organization Address City/[facility] Co de Phone Number [facility] [place] [address] * (ABNORMAL) Coox2 (05/12/2023 3:21 AM EDT) pO2, Coox 25 mmHg [facility] Hgb Blood Gas 10.8(L) 11.7 - 15.5 g/dL [facility] Oxyhemoglobin, Coox 32.7 % [facility] Carboxyhemoglo bin, Coox 0.3 % [facility] Comment: Nonsmokers: 0.5-1.5% COHB Smokers: Variable, but usually less than 10% Toxic: 20-30% COHB Lethal: Greater than 60% COHB Methemoglobin, Coox 0.7 <=1.5 % [facility] Source Coox Mixed Venous [facility] Blood 05/12/2023 3:21 AM EDT 05/12/2023 3:21 AM EDT Radha Hollins MD POINT OF CARE TEST ORDERABLES Performing Organization Address City/[facility] Co de Phone Number [facility] [place] [address] * (ABNORMAL) BLOOD GAS 2 ARTERIAL (05/12/2023 3:18 AM EDT) pH, Arterial 7.34(L) 7.35 - 7.45 [facility] PCO2, Arterial 30(L) 35 - 45 mmHg [facility] PO2, Arterial 72(L) 85 - 104 mmHg [facility] Bicarbonate, Arterial 16.0(L) 20.0 - 26.0 mmol/L [facility] Base Excess, Arterial -9.8(L) -3.0 - 3.0 mmol/L [facility] Hgb Blood Gas 11.0(L) 11.7 - 15.5 g/dL [facility] Oxyhemoglobin, Arterial 89.8(L) 94.0 - 97.0 % [facility] Carboxyhemoglob in, Arterial 0.3 % [facility] Comment: Nonsmokers: 0.5-1.5% COHB Smokers: Variable, but usually less than 10% Toxic: 20-30% COHB Lethal: Greater than 60% COHB Methemoglobin, Arterial 0.7 <=1.5 % [facility] Na Whole Blood 131(L) 135 - 145 mmol/L [facility] K Whole Blood 4.2 3.5 - 5.0 mmol/L [facility] Comment: Please note: Patients with WBC >100,000 may have falsely elevated Potassium levels. Contact the Clinical Chemistry Laboratory if there are any questions. ICa Whole Blood 1.12(L) 1.15 - 1.33 mmol/L [facility] Comment: Note: ??Total bilirubin higher than 20 mg/dL may lead to falsely low ionized calcium. CL Whole Blood 100 98 - 107 mmol/L [facility] Gluc Whole Bld 160 65 - 199 mg/dL [facility] Comment:Diabetes: >=200 mg/d L plus symptoms. Lactate WB 2.7(H) 0.5 - 2.2 mmol/L [facility] Flow Art 5.0 LPM [facility] Blood 05/12/2023 3:18 AM EDT 05/12/2023 3:18 AM EDT Radha Hollins MD POINT OF CARE TEST ORDERABLES [facility] [place] [address] * (ABNORMAL) Coox2 (05/12/2023 1:14 AM EDT) pO2, Coox 28 mmHg [facility] Hgb Blood Gas 10.9(L) 11.7 - 15.5 g/dL [facility] Oxyhemoglobin, Coox 37.3 % [facility] Carboxyhemoglo bin, Coox 0.3 % [facility] Comment: Nonsmokers: 0.5-1.5% COHB Smokers: Variable, but usually less than 10% Toxic: 20-30% COHB Lethal: Greater than 60% COHB Methemoglobin, Coox 0.5 <=1.5 % [facility] Source Coox Mixed Venous [facility] Blood 05/12/2023 1:14 AM EDT 05/12/2023 1:14 AM EDT Radha Hollins MD POINT OF CARE TEST ORDERABLES [facility] [place] [address] * (ABNORMAL) BLOOD GAS 2 ARTERIAL (05/12/2023 1:06 AM EDT) pH, Arterial 7.34(L) 7.35 - 7.45 [facility] PCO2, Arterial 30(L) 35 - 45 mmHg [facility] PO2, Arterial 81(L) 85 - 104 mmHg [facility] Bicarbonate, Arterial 15.7(L) 20.0 - 26.0 mmol/L [facility] Base Excess, Arterial -10.1(L) -3.0 - 3.0 mmol/L [facility] Hgb Blood Gas 11.0(L) 11.7 - 15.5 g/dL [facility] Oxyhemoglobin, Arterial 92.3(L) 94.0 - 97.0 % [facility] Carboxyhemoglob in, Arterial 0.2 % [facility] Comment: Nonsmokers: 0.5-1.5% COHB Smokers: Variable, but usually less than 10% Toxic: 20-30% COHB Lethal: Greater than 60% COHB Methemoglobin, Arterial 0.6 <=1.5 % [facility] Na Whole Blood 131(L) 135 - 145 mmol/L [facility] K Whole Blood 4.2 3.5 - 5.0 mmol/L [facility] Comment: Please note: Patients with WBC >100,000 may have falsely elevated Potassium levels. Contact the Clinical Chemistry Laboratory if there are any questions. ICa Whole Blood 1.13(L) 1.15 - 1.33 mmol/L [facility] Comment: Note: ??Total bilirubin higher than 20 mg/dL may lead to falsely low ionized calcium. CL Whole Blood 99 98 - 107 mmol/L [facility] Gluc Whole Bld 132 65 - 199 mg/dL [facility] Comment:Diabetes: >=200 mg/d L plus symptoms. Lactate WB 2.7(H) 0.5 - 2.2 mmol/L [facility] Flow Art 5.[address] [facility] Blood 05/12/2023 1:06 AM EDT 05/12/2023 1:06 AM EDT Radha Hollins MD POINT OF CARE TEST ORDERABLES Performing Organization Address City/State/[facility] Co de Phone Number [facility] [place] [address] * (ABNORMAL) Differential, Automated (05/12/2023 1:05 AM EDT) Neutrophil % 83.3 % [facility] Neutrophil Absolute 7.49(H) 1.70 - 6.10 x10(3)/mc L [facility] Lymph % 7.1 % [facility] Lymphocytes Abs 0.6(L) 0.9 - 3.2 x10(3)/mc L [facility] Monocyte % 8.9 % [facility] Monocyte Abs 0.8 0.3 - 0.9 x10(3)/mc L [facility] Eos % 0.0 % [facility] Eosinophils Abs 0.0 0.0 - 0.4 x10(3)/mc L [facility] Basophil % 0.1 % [facility] Baso Absolute 0.0 0.0 - 0.1 x10(3)/mc L [facility] Immature Gran % 0.60 % [facility] Comment: Immature granulocytes(IG's)percentage and absolute count will include metamyelocytes, myelocytes, and promyelocytes. Blood smears from CBCs yielding IG's will be scanned manually for concordance. If this scan disagrees with the automated IG or if promyelocytes are noted, a manual differential will be performed. Immature Gran Absolute 0.05(H) 0.00 - 0.04 x10(3)/mc L [facility] Blood 05/12/2023 1:05 AM EDT 05/12/2023 1:15 AM EDT Narrative Resulting Agency Comment Spec In Lab Gianni Fletcher MD HEMATOLOGY ORDERABLE S [facility] [place] [address] * (ABNORMAL) Hemogram (05/12/2023 1:05 AM EDT) White Blood Cell 9.0 4.0 - 9.5 x10(3)/mc L [facility] Red Blood Cell 3.01(L) 4.00 - 5.21 x10(6)/ L [facility] Hemoglobin 9.8(L) 11.7 - 15.5 g/dL [facility] Hematocrit 28.7(L) 35.7 - 45.8 % [facility] Mean Cell Volume 95.3(H) 82.6 - 94.4 fL [facility] Mean Cell Hemoglobin 32.6(H) 27.1 - 32.0 pg [facility] Mean Cell Hemoglobin Concentration 34.1 31.7 - 35.0 g/dL [facility] Platelet 186 145 - 357 x10(3)/mc L [facility] RDW Standard Deviation 43.7 37.0 - 46.0 fL [facility] RDW coefficient of variation 12.7 11.5 - 14.1 % [facility] Mean Platelet Volume 10.3 7.6 - 12.9 fL [facility] NRBC% auto 0.0 % [facility] NRBC Absolute 0.000 0.000 - 0.000 x10(3)/mc L [facility] Blood 05/12/2023 1:05 AM EDT 05/12/2023 1:15 AM EDT Narrative Resulting Agency Comment Spec In Lab Gianni Fletcher MD HEMATOLOGY ORDERABLE S [facility] [place] [address] * (ABNORMAL) Comprehensive metabolic panel (non-fasting) (05/12/2023 1:05 AM EDT) Glucose 141 65 - 199 mg/dL [facility] Comment:Diabetes: >=200 mg/d L plus symptoms Blood Urea Nitrogen 63(H) 8 - 18 mg/dL [facility] Creatinine 1.86(H) 0.70 - 1.20 mg/dL [facility] Sodium 131(L) 135 - 145 mmol/L [facility] Potassium 4.4 3.5 - 5.0 mmol/L [facility] Comment: Please note: ??Patients with WBC >100,000 may have falsely elevated Potassium levels. ??For accurate Potassium quantification in these patients send serum separator tube (gold top) for subsequent determinations. ??Contact the Clinical Chemistry Laboratory if there are any questions. Chloride 96(L) 98 - 107 mmol/L [facility] Carbon Dioxide 14(L) 22 - 31 mmol/L [facility] Anion Gap 21(H) 5 - 15 mmol/L [facility] Calcium 9.0 8.5 - 10.5 mg/dL [facility] Protein, Total 6.6 6.1 - 8.0 g/dL [facility] Albumin 3.9 3.2 - 5.2 g/dL [facility] Aspartate Aminotransferase 1,227(H) 0 - 30 unit/L [facility] Alanine Aminotransferase 1,097(H) 0 - 30 unit/L [facility] Alkaline Phosphatase 108(H) 35 - 105 unit/L [facility] Bilirubin, Total 1.0 0.2 - 1.3 mg/dL [facility] Est Glomerular Filtration Rate 29(L) >=60 mL/min/1. 73 m?? [facility] [...] Lab Radha Hollins MD [place] [address] * XR Chest One View (05/12/2023 1:00 [...] orientation teacher that requested your imaging first. Radha Hollins MD IMG DX ORDERABLES * (ABNORMAL) Coox2 (05/12/2023 12:30 AM EDT) pO2, Coox 22 mmHg [facility] Hgb Blood Gas 10.9(L) 11.7 - 15.5 g/dL [facility] Oxyhemoglobin, Coox 25.1 % [facility] Carboxyhemoglo bin, Coox 0.3 % [facility] Comment: Nonsmokers: 0.5-1.5% COHB Smokers: Variable, but usually less than 10% Toxic: 20-30% COHB Lethal: Greater than 60% COHB Methemoglobin, Coox 1.4 <=1.5 % [facility] Source Coox Mixed Venous [facility] Blood 05/12/2023 12:3 0 AM EDT 05/12/2023 12:30 AM EDT Radha Hollins MD POINT OF CARE TEST ORDERABLES [facility] [place] [address] * XR Chest One View (05/11/2023 11:45 [...] orientation teacher that requested your imaging first. Radha Hollins MD IMG DX ORDERABLES * (ABNORMAL) Lactate, whole blood, send to lab ([facility]) (05/11/2023 7:40 PM EDT) Lactate WB 4.8(Critic al) 0.5 - 2.2 mmol/L [facility] Comment:Called by: IMM, Read back by: Magdalena Baires, Date/Time:05/11/23 19:54. Blood 05/11/2023 7:40 PM EDT 05/11/2023 7:49 PM EDT Narrative Resulting Agency Comment Spec In Lab Radha Hollins MD CHEMISTRY ORDERABL ES Performing Organization Address City/[facility]/ZIP Co de Phone Number [facility] [place] [address] * Urine culture (05/11/2023 7:22 PM EDT) Pathologist [facility] Urine Culture 50,000-99,000 cfu/ml Normal mucosal herman Susceptibilit y testing not routinely performed for Coagulase Negative Staphylococcu s species and other Gram Positive organisms from urine. [facility] Clean Catch Urine 05/11/2023 7:22 PM EDT 05/11/2023 8:50 PM EDT Narrative Resulting Agency Comment Spec In Lab Brody Kaplan APRN MICROBIOLOGY - GENE RAL ORDERABLES Performing Organization Address [facility]/ZIP Co de Phone Number [facility] [place] [address] * (ABNORMAL) Urinalysis Microscopic Exam (05/11/2023 7:22 PM EDT) RBC, Urine 2 0 - 4 /HPF [facility] WBC, Urine >100(H) 0 - 5 /HPF [facility] Bacteria, Urine Occasional (A) None /HPF [facility] Squamous Epithelial Cells Raw Data, Urine 5(H) <=4 /HPF [facility] Hyaline Casts, Urine 3(H) 0 - 2 /LPF [facility] Clean Catch Urine 05/11/2023 7:22 PM EDT 05/11/2023 7:31 PM EDT Narrative Resulting Agency Comment Spec In Lab Brody Kaplan 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 If a false positive is suspected a serum total bilirubin should be considered if clinically indicated. Urobilinogen, Urine Dipstick Normal Normal mg/dL [facility] pH, Urn (dipstick) 5.0 5.0 - 8.0 [facility] Blood, Urine Dipstick Trace(A) Negative mg/dL [facility] Ketone, Urine Dipstick Negative Negative mg/dL [facility] Nitrite, Urine Dipstick Negative Negative [facility] Leukocytes, Urine Dipstick Moderate(A) Negative mcL [facility] Appearance, Urine Dipstick Cloudy(A) Clear [facility] Specific [place] Urine Automated >=1.030(A) 1.005 - 1.030 [facility] Color, Urine Dipstick Yellow Yellow [facility] Reflex to Culture Yes [facility] Clean Catch Urine 05/11/2023 7:22 PM EDT 05/11/2023 7:31 PM EDT Narrative Resulting Agency Comment Spec In Lab Brody Kaplan COUNT ROOM CLERK URINE ORDERABLES [facility] [place] [address] * (ABNORMAL) pro-Brain Natriuretic Peptide (05/11/2023 7:11 PM EDT) NT-proBNP >35,000(H) <=124 pg/mL [facility] Blood 05/11/2023 7:11 PM EDT 05/11/2023 7:26 PM EDT Narrative Resulting Agency Comment Spec In Lab Radha Hollins MD CHEMISTRY ORDERABL ES Performing Organization Address City/[facility]/ZIP Co de Phone Number [facility] [place] [address] * (ABNORMAL) Lactate, whole blood, send to lab ([facility] [place] [place]) (05/11/2023 2:47 PM EDT) Lactate WB 2.9(H) 0.5 - 2.2 mmol/L [facility] Blood 05/11/2023 2:47 PM EDT 05/11/2023 2:53 PM EDT Narrative Resulting Agency Comment Spec In Lab Juan Luis Gonzalez MD CHEMISTRY ORDERABLES Performing Organization Address [facility] Co de Phone Number [facility] [place] [address] * (ABNORMAL) CT Angiogram Abdomen & Pelvis [...] 610 mm2 Circumference: 88 mm Calcification: Mild Wjybypf-ho-ebddsyty height: Left: 6.2 mm Right: 5.8 mm THORACIC AORTA Description: Normal course and caliber. ??Mild diffuse atherosclerotic changes. No acute aortopathy noted. Supply Cataloguer dimensions: Aortic root: 27.6 mm Max ascending aorta: 30.5 mm x 27.7 mm Suggested fluoroscopic angulation based on line extending through the nadirs of the three sinuses of Valsalva, set equidistant: ?? FINNISH ??9 degrees; cranial 7 degrees MITRAL: Mitral [...] 610 mm2 Circumference: 88 mm Calcification: Mild Myseapo-kj-vabnofiw height: Left: 6.2 mm Right: 5.8 mm THORACIC AORTA Description: Normal course and caliber. Mild diffuse atheroscleroticchanges. No acute aortopathy noted. Supply Cataloguer dimensions: Aortic root: 27.6 mm Max ascending aorta: 30.5 mm x 27.7 mm Suggested fluoroscopic angulation based on line extending through thenadirs of the three sinuses of Valsalva, set equidistant: FINNISH 9 degrees; cranial 7 degrees MITRAL: Mitral [...] orientation teacher that requested your imaging first. Antelmo Sharma MD IMG CT ORDERABLES * (ABNORMAL) Lactate, whole blood, send to lab ([facility]) (05/11/2023 9:29 AM EDT) [facility] Lactate WB 3.1(H) 0.5 - 2.2 mmol/L [facility] Blood 05/11/2023 9:29 AM EDT 05/11/2023 9:38 AM EDT Narrative Resulting Agency Comment Spec In Lab Juan Luis Gonzalez MD CHEMISTRY ORDERABLES [facility] [place] [address] * (ABNORMAL) Differential, Automated (05/11/2023 4:42 AM EDT) Pathologist [facility] Neutrophil % 78.1 % [facility] Neutrophil Absolute 5.46 1.70 - 6.10 x10(3)/mc L [facility] Lymph % 10.6 % [facility] Lymphocytes Abs 0.7(L) 0.9 - 3.2 x10(3)/mc L [facility] Monocyte % 9.6 % [facility] Monocyte Abs 0.7 0.3 - 0.9 x10(3)/mc L [facility] Eos % 0.0 % [facility] Eosinophils Abs 0.0 0.0 - 0.4 x10(3)/mc L [facility] Basophil % 0.4 % [facility] Baso Absolute 0.0 0.0 - 0.1 x10(3)/mc L [facility] Immature Gran % 1.30 % [facility] Comment: Immature granulocytes(IG's)percentage and absolute count will include metamyelocytes, myelocytes, and promyelocytes. Blood smears from CBCs yielding IG's will be scanned manually for concordance. If this scan disagrees with the automated IG or if promyelocytes are noted, a manual differential will be performed. Immature Gran Absolute 0.09(H) 0.00 - 0.04 x10(3)/ L [facility] Blood 05/11/2023 4:42 AM EDT 05/11/2023 4:49 AM EDT Narrative Resulting Agency Comment Spec In Lab Klaudia Reid MD HEMATOLOGY OR DERABLES Performing Organization Address City/State/[facility] Co de Phone Number [facility] [place] [address] * (ABNORMAL) Hemogram (05/11/2023 4:42 AM EDT) White Blood Cell 7.0 4.0 - 9.5 x10(3)/mc L [facility] Red Blood Cell 3.44(L) 4.00 - 5.21 x10(6)/mc L [facility] Hemoglobin 11.1(L) 11.7 - 15.5 g/dL [facility] Hematocrit 32.7(L) 35.7 - 45.8 % [facility] Mean Cell Volume 95.1(H) 82.6 - 94.4 fL [facility] Mean Cell Hemoglobin 32.3(H) 27.1 - 32.0 pg [facility] Mean Cell Hemoglobin Concentration 33.9 31.7 - 35.0 g/dL [facility] Platelet 165 145 - 357 x10(3)/mc L [facility] RDW Standard Deviation 43.1 37.0 - 46.0 fL [facility] RDW coefficient of variation 12.7 11.5 - 14.1 % [facility] Mean Platelet Volume 10.1 7.6 - 12.9 fL [facility] NRBC% auto 0.0 % [facility] NRBC Absolute 0.000 0.000 - 0.000 x10(3)/mc L [facility] Blood 05/11/2023 4:42 AM EDT 05/11/2023 4:49 AM EDT Narrative Resulting Agency Comment Spec In Lab Klaudia Reid MD HEMATOLOGY OR DERABLES Performing Organization Address [facility] Co de Phone Number [facility] [place] [address] * Heparin (unfractionated) Level (05/11/2023 4:42 AM EDT) UF Heparin 0.46 IU/mL [facility] Comment: Heparin (anti-Xa) levels [...] MD HEMATOLOGY ORDERAB LES Performing Organization Address [facility] Co de Phone Number [facility] [place] [address] * (ABNORMAL) Comprehensive metabolic panel (non-fasting) (05/11/2023 4:42 AM EDT) Glucose 143 65 - 199 mg/dL [facility] Comment:Diabetes: >=200 mg/d L plus symptoms Blood Urea Nitrogen 42(H) 8 - 18 mg/dL [facility] Creatinine 1.24(H) 0.70 - 1.20 mg/dL [facility] Sodium 134(L) 135 - 145 mmol/L [facility] Potassium 4.6 3.5 - 5.0 mmol/L [facility] Comment: Please note: ??Patients with WBC >100,000 may have falsely elevated Potassium levels. ??For accurate Potassium quantification in these patients send serum separator tube (gold top) for subsequent determinations. ??Contact the Clinical Chemistry Laboratory if there are any questions. Chloride 99 98 - 107 mmol/L [facility] Carbon Dioxide 14(L) 22 - 31 mmol/L [facility] Anion Gap 21(H) 5 - 15 mmol/L [facility] Calcium 9.6 8.5 - 10.5 mg/dL [facility] Protein, Total 7.2 6.1 - 8.0 g/dL [facility] Albumin 3.7 3.2 - 5.2 g/dL [facility] Aspartate Aminotransferase 144(H) 0 - 30 unit/L [facility] Comment:result rechecked-ssc Alanine Aminotransferase 130(H) 0 - 30 unit/L [facility] Comment:result rechecked-ssc Alkaline Phosphatase 72 35 - 105 unit/L [facility] Bilirubin, Total 0.8 0.2 - 1.3 mg/dL [facility] Est Glomerular Filtration Rate 48(L) >=60 mL/min/1. 73 m?? [facility] [...] [place]/ZIP Co de Phone Number [facility] [place] [address] * EKG 12 Lead (05/10/2023 1:16 PM EDT) Ventricular rate 118 BPM MUSE SYSTEM Atrial Rate 118 BPM MUSE SYSTEM P-R Interval 152 ms MUSE SYSTEM QRS Duration 104 ms MUSE SYSTEM Q-T Interval 316 ms MUSE SYSTEM QTC Calculated (Bezet) 442 ms MUSE SYSTEM Calculated P Acworth 29 degrees MUSE SYSTEM Calculated R Acworth 18 degrees MUSE SYSTEM Calculated T Acworth -173 degrees MUSE SYSTEM INTERPRETATION Sinus tachycardia Minimal voltage criteria for LVH, may be normal variant ( [place] product ) Septal infarct , age undetermined ST & T wave abnormality, consider lateral ischemia Abnormal ECG When compared with ECG of 10-MAY-2023 07:59, Fusion complexes are no longer Present Premature ventricular complexes are no longer Present ST no longer depressed in Anterior leads Confirmed by MD Villareal Danette ([id number]) on 05/10/2023 8:47:46 PM MUSE SYSTEM 05/10/2023 1:16 PM EDT 05/10/2023 8:47 PM EDT Juan Luis Gonzalez MD ECG ORDERABLES Performing Organization Address [facility] Co de Phone Number MUSE SYSTEM * Lactate, whole blood, send to lab ([facility]) (05/10/2023 11:52 AM EDT) Lactate WB 1.8 0.5 - 2.2 mmol/L [facility] Blood 05/10/2023 11:5 2 AM EDT 05/10/2023 12:13 PM EDT Narrative Resulting Agency Comment Spec In Lab Juan Luis Gonzalez MD CHEMISTRY ORDERABLES Performing Organization Address City/[facility]/ZIP Co de Phone Number [facility] [place] [address] * XR Chest One View (05/10/2023 11:16 [...] orientation teacher that requested your imaging first. Juan Luis Gonzalez MD IMG DX ORDERABLES * EKG 12 Lead (05/10/2023 7:59 AM EDT) Pathologist [facility] Ventricular rate 115 BPM MUSE SYSTEM Atrial Rate 115 BPM MUSE SYSTEM P-R Interval 142 ms MUSE SYSTEM QRS Duration 102 ms MUSE SYSTEM Q-T Interval 322 ms MUSE SYSTEM QTC Calculated (Bezet) 445 ms MUSE SYSTEM Calculated P Acworth 36 degrees MUSE SYSTEM Calculated R Acworth 28 degrees MUSE SYSTEM Calculated T Acworth -119 degrees MUSE SYSTEM INTERPRETATION Sinus tachycardia with frequent Premature ventricular complexes and Fusion complexes ST & T wave abnormality, consider lateral ischemia Abnormal ECG When compared with ECG of 08-MAY-2023 15:51, No significant change was found I personally reviewed the tracing and edited the fellows interpretation Confirmed by fellow MD Anitha, [facility] () on 05/11/2023 6:19:54 AM Confirmed by MD Tram, Chel ([id number]) on 05/11/2023 3:18:56 PM MUSE SYSTEM 05/10/2023 7:59 AM EDT 05/11/2023 3:18 PM EDT Radha Hollins MD ECG ORDERABLES MUSE SYSTEM * (ABNORMAL) Differential, Automated (05/10/2023 2:28 AM EDT) Neutrophil % 77.1 % [facility] Neutrophil Absolute 4.01 1.70 - 6.10 x10(3)/mc L [facility] Lymph % 14.0 % [facility] Lymphocytes Abs 0.7(L) 0.9 - 3.2 x10(3)/ L [facility] Monocyte % 7.7 % [facility] Monocyte Abs 0.4 0.3 - 0.9 x10(3)/[facility] Eos % 0.4 % [facility] Eosinophils Abs 0.0 0.0 - 0.4 x10(3)/[facility] Basophil % 0.4 % [facility] Baso Absolute 0.0 0.0 - 0.1 x10(3)/[facility] Immature Gran % 0.40 % [facility] Comment: Immature granulocytes(IG's)percentage and absolute count will include metamyelocytes, myelocytes, and promyelocytes. Blood smears from CBCs yielding IG's will be scanned manually for concordance. If this scan disagrees with the automated IG or if promyelocytes are noted, a manual differential will be performed. Immature Gran Absolute 0.02 0.00 - 0.04 x10(3)/[facility] Blood 05/10/2023 2:28 AM EDT 05/10/2023 2:57 AM EDT Narrative Resulting Agency Comment Spec In Lab Klaudia Reid MD HEMATOLOGY OR DERABLES Performing Organization Address City/State/[facility] Co de Phone Number [facility] [place] [address] * (ABNORMAL) Hemogram (05/10/2023 2:28 AM EDT) White Blood Cell 5.2 4.0 - 9.5 x10(3)/[facility] Red Blood Cell 3.11(L) 4.00 - 5.21 x10(6)/[facility] Hemoglobin 10.2(L) 11.7 - 15.5 g/dL [facility] Hematocrit 30.2(L) 35.7 - 45.8 % [facility] Mean Cell Volume 97.1(H) 82.6 - 94.4 fL [facility] Mean Cell Hemoglobin 32.8(H) 27.1 - 32.0 pg [facility] Mean Cell Hemoglobin Concentration 33.8 31.7 - 35.0 g/dL [facility] Platelet 151 145 - 357 x10(3)/mc L [facility] RDW Standard Deviation 44.9 37.0 - 46.0 fL [facility] RDW coefficient of variation 12.8 11.5 - 14.1 % [facility] Mean Platelet Volume 9.8 7.6 - 12.9 fL [facility] NRBC% auto 0.0 % [facility] NRBC Absolute 0.000 0.000 - 0.000 x10(3)/mc L [facility] Blood 05/10/2023 2:28 AM EDT 05/10/2023 2:57 AM EDT Narrative Resulting Agency Comment Spec In Lab Klaudia Reid MD HEMATOLOGY OR DERABLES [facility] [place] [address] * (ABNORMAL) Comprehensive metabolic panel (non-fasting) (05/10/2023 2:28 AM EDT) Pathologist [facility] Glucose 100 65 - 199 mg/dL [facility] Comment:Diabetes: >=200 mg/d L plus symptoms Blood Urea Nitrogen 30(H) 8 - 18 mg/dL [facility] Creatinine 0.90 0.70 - 1.20 mg/dL [facility] Sodium 134(L) 135 - 145 mmol/L [facility] Potassium 4.1 3.5 - 5.0 mmol/L [facility] Comment: Please note: ??Patients with WBC >100,000 may have falsely elevated Potassium levels. ??For accurate Potassium quantification in these patients send serum separator tube (gold top) for subsequent determinations. ??Contact the Clinical Chemistry Laboratory if there are any questions. Chloride 102 98 - 107 mmol/L [facility] Carbon Dioxide 20(L) 22 - 31 mmol/L [facility] Anion Gap 12 5 - 15 mmol/L [facility] Calcium 9.3 8.5 - 10.5 mg/dL [facility] Protein, Total 6.4 6.1 - 8.0 g/dL [facility] Albumin 3.7 3.2 - 5.2 g/dL [facility] Aspartate Aminotransferase 24 0 - 30 unit/L [facility] Alanine Aminotransferase 14 0 - 30 unit/L [facility] Alkaline Phosphatase 70 35 - 105 unit/L [facility] Bilirubin, Total 0.5 0.2 - 1.3 mg/dL [facility] Est Glomerular Filtration Rate 70 >=60 mL/min/1. 73 m?? [facility] Comment: This patient's estimated GFR [...] Lab Radha Hollins MD CHEMISTRY ORDERABL ES [facility] [place] [address] * Heparin (unfractionated) Level (05/10/2023 2:28 AM EDT) UF Heparin 0.37 IU/mL [facility] Comment: Heparin (anti-Xa) levels [...] Lab Radha Hollins MD [place]EM[place] [address] * (ABNORMAL) Differential, Automated (05/09/2023 4:00 AM EDT) Neutrophil % 81.7 % [facility] Neutrophil Absolute 5.26 1.70 - 6.10 x10(3)/mc L [facility] Lymph % 10.7 % [facility] Lymphocytes Abs 0.7(L) 0.9 - 3.2 x10(3)/mc L [facility] Monocyte % 6.5 % [facility] Monocyte Abs 0.4 0.3 - 0.9 x10(3)/mc L [facility] Eos % 0.5 % [facility] Eosinophils Abs 0.0 0.0 - 0.4 x10(3)/mc L [facility] Basophil % 0.3 % [facility] Baso Absolute 0.0 0.0 - 0.1 x10(3)/mc L [facility] Immature Gran % 0.30 % [facility] Comment: Immature granulocytes(IG's)percentage and absolute count will include metamyelocytes, myelocytes, and promyelocytes. Blood smears from CBCs yielding IG's will be scanned manually for concordance. If this scan disagrees with the automated IG or if promyelocytes are noted, a manual differential will be performed. Immature Gran Absolute 0.02 0.00 - 0.04 x10(3)/mc L [facility] Blood 05/09/2023 4:00 AM EDT 05/09/2023 4:19 AM EDT Narrative Resulting Agency Comment Spec In Lab Klaudia Reid MD HEMATOLOGY OR DERABLES Performing Organization Address City/[facility]/[place] [address] * (ABNORMAL) Hemogram (05/09/2023 4:00 AM EDT) White Blood Cell 6.4 4.0 - 9.5 x10(3)/mc L [facility] Red Blood Cell 3.15(L) 4.00 - 5.21 x10(6)/mc L [facility] Hemoglobin 10.2(L) 11.7 - 15.5 g/dL [facility] Hematocrit 30.3(L) 35.7 - 45.8 % [facility] Mean Cell Volume 96.2(H) 82.6 - 94.4 fL [facility] Mean Cell Hemoglobin 32.4(H) 27.1 - 32.0 pg [facility] Mean Cell Hemoglobin Concentration 33.7 31.7 - 35.0 g/dL [facility] Platelet 151 145 - 357 x10(3)/mc L [facility] RDW Standard Deviation 44.7 37.0 - 46.0 fL [facility] RDW coefficient of variation 12.8 11.5 - 14.1 % [facility] Mean Platelet Volume 9.4 7.6 - 12.9 fL [facility] NRBC% auto 0.0 % [facility] NRBC Absolute 0.000 0.000 - 0.000 x10(3)/ L [facility] Blood 05/09/2023 4:00 AM EDT 05/09/2023 4:19 AM EDT Narrative Resulting Agency Comment Spec In Lab Klaudia Reid MD HEMATOLOGY OR DERABLES Performing Organization Address City/State/[facility] Co de Phone Number [facility] [place] [address] * Heparin (unfractionated) Level (05/09/2023 4:00 AM EDT) UF Heparin 0.47 IU/mL [facility] Comment: Heparin (anti-Xa) levels [...] Lab Radha Hollins MD HEMATOLOGY ORDERAB LES [facility] [address] [place] [address] * (ABNORMAL) Comprehensive metabolic panel (non-fasting) (05/09/2023 4:00 AM EDT) Glucose 108 65 - 199 mg/dL [facility] Comment:Diabetes: >=200 mg/d L plus symptoms Blood Urea Nitrogen 31(H) 8 - 18 mg/dL [facility] Creatinine 1.03 0.70 - 1.20 mg/dL [facility] Sodium 137 135 - 145 mmol/L [facility] Potassium 4.4 3.5 - 5.0 mmol/L [facility] Comment: Please note: ??Patients with WBC >100,000 may have falsely elevated Potassium levels. ??For accurate Potassium quantification in these patients send serum separator tube (gold top) for subsequent determinations. ??Contact the Clinical Chemistry Laboratory if there are any questions. Chloride 102 98 - 107 mmol/L [facility] Carbon Dioxide 20(L) 22 - 31 mmol/L [facility] Anion Gap 15 5 - 15 mmol/L [facility] Calcium 9.3 8.5 - 10.5 mg/dL [facility] Protein, Total 6.6 6.1 - 8.0 g/dL [facility] Albumin 3.8 3.2 - 5.2 g/dL [facility] Aspartate Aminotransferase 32(H) 0 - 30 unit/L [facility] Alanine Aminotransferase 18 0 - 30 unit/L [facility] Alkaline Phosphatase 78 35 - 105 unit/L [facility] Bilirubin, Total 0.5 0.2 - 1.3 mg/dL [facility] Est Glomerular Filtration Rate 60 >=60 mL/min/1. 73 m?? [facility] [...] ES Performing Organization Address [facility] Co de Phone Number [facility] [place] [address] * (ABNORMAL) pro-Brain Natriuretic Peptide (05/08/2023 4:00 PM EDT) NT-proBNP 25,503(H) <=124 pg/mL [facility] Blood Venous Draw / Unknown 05/08/2023 4:00 PM EDT 05/08/2023 4:25 PM EDT Narrative Resulting Agency Comment Spec In Lab Juan Luis Gonzalez MD CHEMISTRY ORDERABLES Performing Organization Address City/[facility] Co de Phone Number [facility] [place] [address] * Magnesium (05/08/2023 4:00 PM EDT) Magnesium 0.82 0.69 - 1.07 mmol/L [facility] Blood 05/08/2023 4:00 PM EDT 05/08/2023 4:06 PM EDT Narrative Resulting Agency Comment Spec In Lab Enrique Chua MD CHEMISTRY ORDERABLES Performing Organization Address [facility] Co de Phone Number [facility] [place] [address] * Potassium (05/08/2023 4:00 PM EDT) Potassium 3.9 3.5 - 5.0 mmol/L [facility] Comment: Please note: ??Patients with [...] Performing Organization Address [facility] [place] [address] * Heparin (unfractionated) Level (05/08/2023 4:00 PM EDT) UF Heparin 0.43 IU/mL [facility] Comment: Heparin (anti-Xa) levels [...] MD HEMATOLOGY ORDERAB LES Performing Organization Address [facility] Co de Phone Number [facility] [place] [address] * EKG 12 Lead (05/08/2023 3:51 PM EDT) Ventricular rate 98 BPM MUSE SYSTEM Atrial Rate 98 BPM MUSE SYSTEM P-R Interval 150 ms MUSE SYSTEM QRS Duration 102 ms MUSE SYSTEM Q-T Interval 358 ms MUSE SYSTEM QTC Calculated (Bezet) 457 ms MUSE SYSTEM Calculated P Acworth 38 degrees MUSE SYSTEM Calculated R Acworth 48 degrees MUSE SYSTEM Calculated T Acworth -112 degrees MUSE SYSTEM INTERPRETATION Sinus rhythm with frequent and consecutive Premature ventricular and fusion complexes Septal infarct , age undetermined ST & T wave abnormality, consider anterolateral ischemia Abnormal ECG When compared with ECG of 09-NOV-2022 11:17, T wave inversion now evident in Anterolateral leads Confirmed by MD Harshil, Enrique Bell ([id number]) on 05/10/2023 8:11:46 AM MUSE SYSTEM 05/08/2023 3:51 PM EDT 05/10/2023 8:11 AM EDT Radha Hollins MD ECG ORDERABLES MUSE SYSTEM * (ABNORMAL) Differential, Automated (05/08/2023 11:38 AM EDT) Pathologist [facility] Neutrophil % 71.3 % [facility] Neutrophil Absolute 2.91 1.70 - 6.10 x10(3)/mc L [facility] Lymph % 19.1 % [facility] Lymphocytes Abs 0.8(L) 0.9 - 3.2 x10(3)/mc L [facility] Monocyte % 9.0 % [facility] Monocyte Abs 0.4 0.3 - 0.9 x10(3)/mc L [facility] Eos % 0.2 % [facility] Eosinophils Abs 0.0 0.0 - 0.4 x10(3)/mc L [facility] Basophil % 0.2 % [facility] Baso Absolute 0.0 0.0 [...] x10(3)/mc L [facility] Blood 05/08/2023 11:3 8 AM EDT 05/08/2023 11:44 AM EDT Narrative Resulting Agency Comment Spec In Lab Lincoln Sal MD HEMATOLOGY ORDERA BLES [facility] [place] [address] * (ABNORMAL) Hemogram (05/08/2023 11:38 AM EDT) White Blood Cell 4.1 4.0 - 9.5 x10(3)/ L [facility] Red Blood Cell 3.05(L) 4.00 - 5.21 x10(6)/ L [facility] Hemoglobin 10.2(L) 11.7 - 15.5 g/dL [facility] Hematocrit 29.6(L) 35.7 - 45.8 % [facility] [facility] Mean Cell Volume 97.0(H) 82.6 - 94.4 fL [facility] Mean Cell Hemoglobin 33.4(H) 27.1 - 32.0 pg [facility] Mean Cell Hemoglobin Concentration 34.5 31.7 - 35.0 g/dL [facility] Platelet 136(L) 145 - 357 x10(3)/mc L [facility] RDW Standard Deviation 44.3 37.0 - 46.0 fL [facility] RDW coefficient of variation 12.6 11.5 - 14.1 % [facility] Mean Platelet Volume 9.4 7.6 - 12.9 fL [facility] NRBC% auto 0.0 % [facility] NRBC Absolute 0.000 0.000 - 0.000 x10(3)/ L [facility] Blood 05/08/2023 11:3 8 AM EDT 05/08/2023 11:44 AM EDT Narrative Resulting Agency Comment Spec In Lab Lincoln Sal MD HEMATOLOGY ORDERA BLES Performing Organization Address [facility] Co de Phone Number [facility] [place] [address] * TSH (05/08/2023 11:38 AM EDT) Thyroid Stimulating Hormone 1.27 0.27 - 4.20 mcIU/mL [facility] Comment: Reference Interval (mcIU/mL): Females: ??First Trimester: 0.23-3.88 ??Second Trimester: 0.22-3.90 ??Third Trimester: 0.44-4.66 Blood 05/08/2023 11:3 8 AM EDT 05/08/2023 11:44 AM EDT Narrative Resulting Agency Comment Spec In Lab Enrique Chua MD CHEMISTRY ORDERABLES Performing Organization Address [facility] Co de Phone Number [facility] [place] [address] * (ABNORMAL) Phosphorus (05/08/2023 11:38 AM EDT) Phosphorus 4.7(H) 2.5 - 4.5 mg/dL [facility] Blood 05/08/2023 11:3 8 AM EDT 05/08/2023 11:44 AM EDT Narrative Resulting Agency Comment Spec In Lab Enrique Chua MD CHEMISTRY ORDERABLES Performing Organization Address [facility] Co de Phone Number [facility] [place] [address] * Magnesium (05/08/2023 11:38 AM EDT) Magnesium 0.76 0.69 - 1.07 mmol/L [facility] Blood 05/08/2023 11:3 8 AM EDT 05/08/2023 11:44 AM EDT Narrative Resulting Agency Comment Spec In Lab Enirque Chua MD CHEMISTRY ORDERABLES Performing Organization Address [facility] Co de Phone Number [facility] [place] [address] * (ABNORMAL) Basic Metabolic Panel (non-fasting) (05/08/2023 11:38 AM EDT) Glucose 97 65 - 199 mg/dL [facility] Comment:Diabetes: >=200 mg/d L plus symptoms Blood Urea Nitrogen 27(H) 8 - 18 mg/dL [facility] Creatinine 1.02 0.70 - 1.20 mg/dL [facility] Sodium 139 135 - 145 mmol/L [facility] Potassium 4.2 3.5 - 5.0 mmol/L [facility] Comment: Please note: ??Patients with WBC >100,000 may have falsely elevated Potassium levels. ??For accurate Potassium quantification in these patients send serum separator tube (gold top) for subsequent determinations. ??Contact the Clinical Chemistry Laboratory if there are any questions. Chloride 105 98 - 107 mmol/L [facility] Carbon Dioxide 20(L) 22 - 31 mmol/L [facility] Anion Gap 14 5 - 15 mmol/L [facility] Calcium 9.4 8.5 - 10.5 mg/dL [facility] Est Glomerular Filtration Rate 60 >=60 mL/min/1. 73 m?? [facility] [...] Chua MD CHEMISTRY ORDERABLES Performing Organization Address [facility]/ZIP Co de Phone Number [facility] [place] [address] * ECHO COMPLETE (05/08/2023 11:02 AM EDT) EF 25 HEARTLAB SYSTEM Anatomical Region Laterality Modality Cardiac Other 05/08/2023 10:0 3 AM EDT Narrative 05/08/2023 11:51 AM EDT ? Echocardiogram Report Name: PURNIMA THACKER ?Study Date: 05/08/2023 10:03 AMBP: 92/64 mmHg ? Patient Location: [facility]CC^CV29^A : 1955 ? Height: 155 cm ? Account: [id number] Age: 67 yrs ? Weight: 78 kg Gender: Female ?BSA: 1.8 m2 Ordering Physician: ENRIQUE CHUA Referring Physician: MARIO ALBERTO CHIN Performed By: CHUCKIE Canchola Reason For Study: SAVR Stenosis Exam Location: [facility]. Interpretation Summary -Left ventricle is [...] worsening stenosis. Mitral regurgitation is similar. Procedure Complete-86404. Satisfactory quality. There is normal sinus rhythm. [...] Study Date: 0:03 AMBP: 92/64 mmHg Patient Location:[facility]^CV29^A : 1955 Height: 155 cm Account: [id number] Age: 67 yrs Weight: 78 kg Gender: Female BSA: 1.8 m2 Ordering Physician: ENRIQUE CHUA Referring Physician: MARIO ALBERTO CHIN Performed By: CHUCKIE Canchola Reason For Study: SAVR Stenosis Exam Location: [facility]. Interpretation Summary -Left ventricle is [...] suggestsworsening stenosis. Mitral regurgitation is similar. Procedure Complete-[id number]. Satisfactory quality. There is normal sinus rhythm. 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
--- OUTSIDE RECORDS SUMMARY | 2024-04-27 15:03 | XMS_ITS | Encounter Summary ---
Author Organization [facility] [place] [address] Care Team Providers Care Teller Head Name Role Phone Magdalena Acosta MD Primary Care Provider [phone] Encounter Details Date Type Department Care Team [...] Appointment Hematology [place] [address] 05/12/2024 10:00 AM EDT Office Visit Hematology [place] [address] [facility] [facility] [address] [place] [address] 03/01/2025 4:15 PM EDT Office Visit Dermatology at [place] [address] [facility] [place] [phone] Marek Bonilla MD [address] [facility], [place] [address] documented as of this encounter Visit Diagnoses Not on filedocumented in this encounter Care Teams Teller Head Relationship Specialty Start Date End Date Magdalena Acosta MD [address] [place] [address] PCP - General Family Medicine 02/05/23 documented as of this encounter
--- OUTSIDE RECORDS SUMMARY | 2024-04-27 15:03 | XMS_ITS | Encounter Summary ---
Author Organization [facility] [place] [address] Care Team Providers Care Joint Supervisor Name Role Phone Deborah Quiroga APRN Primary Care Provider [phone] Encounter Details Date Type Department Care Team (Latest Contact Info) Description 07/03/2022 1:36 PM EST - 07/03/2022 11:59 PM EST Hospital Encounter Hematology [place] [address] Discharge Disposition: Home Social History Tobacco Use [...] AM EDT Appointment Hematology [place] [address] 05/12/2024 10:00 AM EDT Office Visit Hematology [place] [address] Markel Borjas MD [facility] [address] [place] [address] 03/01/2025 4:15 PM EDT Office Visit Dermatology at [place] [address] [facility] [place] [phone] Marek Bonilla MD [address], [place] [address] documented as of this encounter Procedures Procedure Name Priority Date/Time Associated Diagnosis Comments FOLATE, SERUM Routine 07/03/2022 1:59 PM EST VITAMIN B12 Routine 07/03/2022 1:59 PM EST documented in this encounter Results * Folate, serum (07/03/2022 1:59 PM EST) Folate >20.0 4.8 - 24.2 ng/mL [facility] Blood Venous Draw / Unknown 07/03/2022 1:59 PM EST 07/03/2022 2:13 PM EST Narrative Resulting Agency Comment Spec In Lab Markel Borjas MD CHEMISTRY ORDERABL ES Performing Organization Address City/[facility]/ZIP Co de Phone Number [facility] [place] [address] * Vitamin B12 (07/03/2022 1:59 PM EST) Vitamin B12 449 232 - 1,245 pg/mL [facility] Blood Venous Draw / Unknown 07/03/2022 1:59 PM EST 07/03/2022 2:13 PM EST Narrative Resulting Agency Comment Spec In Lab Markel Borjas MD CHEMISTRY ORDERABL ES Performing Organization Address City/[facility]/ZIP Co de Phone Number [facility] [place] [address] documented in this encounter Visit Diagnoses Not on filedocumented in this encounter Care Teams Joint Supervisor Relationship Specialty Start Date End Date Deborah Quiroga APRN PCP - General Family Medicine 03/24/16 02/04/23 documented as of this encounter
--- OUTSIDE RECORDS SUMMARY | 2024-04-27 15:03 | XMS_ITS | Encounter Summary ---
Author Organization [facility] [place] [address] Care Team Providers Care Rubber Engraver Name Role Phone Junaid Deborah Shields APRN Primary Care Provider [phone] Encounter Details Date Type Department Care Team (Latest Contact Info) Description 11/09/2022 10:37 AM EDT - 11/09/2022 4:53 PM EDT Hospital Encounter [place] [address] Nitesh Escobedo MD [facility] [place] [address] Aortic valve stenosis, etiology of cardiac valve [...] 2:30 PM Marek Bonilla MD [facility] New Medications to be Picked Up None For questions regarding this document or issues relating to this hospitalization on the Medical Service, please contact your inpatient physician through the [facility] News Videographer . Issues afterhours and on weekends will be handled by the Hospitalist staff on-call. * Attachments The following attachments cannot be sent through Care Everywhere. * Coronary Angiogram: Post-op (Kazakh) * Right Heart Catheterization: Pulmonary Artery Catheterization: Post-op (Kazakh) documented in this encounter Medications at Time [...] MD - 11/09/2022 11:20 AM EDT . [facility] Interventional Cardiology Adult Pre-Procedure H&P Update: Cardiac Catheterization Purnima Thacker [id number] 1955 Chief Complaint: BONILLA HPI: Purnima Thacker [...] Marrero MD Interventional Cardiology 11/09/22 11:43 AM [facility] Pager: [phone] documented in this encounter Plan of Treatment Upcoming Encounters Date Type Department Care Team (Late st Contact Info) Description 05/12/2024 9:00 AM EDT Appointment Hematology [place] [address] 05/12/2024 10:00 AM EDT Office Visit Hematology [place] [address] Markel Borjas MD [facility] [address] [place] [address] 03/01/2025 4:15 PM EDT Office Visit Dermatology at [place] [address] [place] [address] Marek Bonilla MD [address], [place] [address] documented as of this encounter Procedures Procedure Name Priority Date/Time Associated Diagnosis Comments CARDIAC CATHETERIZATION Routine 11/10/19 23 1:05 PM EDT Aortic valve stenosis, etiology of cardiac valve disease unspecified Cath Plmt Left Heart Cath & Arts W/Inj & Angio Img S&I ([id number]) 11/09/2022 11:51 AM EDT Aortic valve stenosis, etiology of cardiac valve disease unspecified EKG 12-LEAD Routine 11/09/2022 11:17 AM EDT Aortic valve stenosis, etiology of cardiac valve disease unspecified documented in this encounter Results * CARDIAC CATHETERIZATION (11/09/2022 1:05 PM EDT) Anatomical Region Laterality Modality Other Narrative 11/09/2022 2:01 PM EDT ?[facility] ? Cardiac Catheterization/Intervention Report ? Patient Name: Kirstie, Purnima M. ? Procedure Date: 11/09/2022 ? A #: [id number] ? Primary Physician: Nitesh Escobedo ? Case #: [id number] ? File Name: [id number] ? Catheterization Order Number: [id number] ? [facility] ? Final Report [place], [place] ? Patient Name: ? Purnima M. Kirstie ? ID#: ?[id number] ? : ?1955 ? Procedure Date: ? November 09, 2022 ? Case #: ? [id number] ? Room: ? 1 ? Case Physician: [...] (Bezet) 457 ms MUSE SYSTEM Calculated P Wilson 44 degrees MUSE SYSTEM Calculated R Wilson 33 degrees MUSE SYSTEM Calculated T Wilson 30 degrees MUSE SYSTEM INTERPRETATION Sinus rhythm Occasional Premature ventricular complexes Otherwise normal ECG When compared with ECG of 21-SEP-2016 12:26, Premature ventricular complexes are now Present NC interval has decreased Nonspecific T wave abnormality has replaced inverted T waves in Inferior leads I personally reviewed the tracing and edited the fellows interpretation Confirmed by fellow MD Anitha, Carissa ([id number]) on 11/09/2022 6:17:28 PM Confirmed by Elsa [...] Procedure), Routine 121 (Given - Provid er: iNtesh Escobedo MD) lidocaine (Xylocaine) 1% (10 mg/mL) [...] MD) documented in this encounter Care Teams Rubber Engraver Relationship Specialty Start Date End Date Deborah Quiroga, [employer] PCP - General Family Medicine 03/24/16 02/04/23 documented as of this encounter
--- OUTSIDE RECORDS SUMMARY | 2024-04-27 15:03 | XMS_ITS | Encounter Summary ---
Author Organization [facility] [place] [address] Care Team Providers Care Federal Judge Name Role Phone Magdalena Acosta MD Primary Care Provider [phone] Encounter Details Date Type Department Care Team (Latest Contact Info) Description 02/05/2023 9:33 PM EDT - 02/05/2023 11:59 PM EDT Hospital [place] [phone] Discharge Disposition: Home Social History Tobacco Use [...] AM EDT Appointment Hematology [place] [address] 05/12/2024 10:00 AM EDT Office Visit Hematology [place] [address] Markel Borjas MD [facility] [address] [place] [address] 03/01/2025 4:15 PM EDT Office Visit Dermatology at [place] [address] [facility] [place] [address] Marek Bonilla MD [address], [place] [address] documented as of this encounter Procedures Procedure Name Priority Date/Time Associated Diagnosis Comments SURGICAL PATHOLOGY REPORT Routine 02/05/2023 3:00 PM EDT documented in this encounter Results * Surgical Pathology Report (02/05/2023 3:00 PM EDT) Final Diagnosis [id number] ? Location: [facility]W The signing pathologist has (i) examined the relevant preparation(s) for the specimen(s) and (ii) rendered or confirmed the diagnosis(es). . ?Surgical Pathology DIAGNOSIS Left upper back, skin punch biopsy: - ??Compound dysplastic ??melanocytic nevus with moderate atypia, transected at peripheral specimen edges ?? (see discussion) Electronically signed by: ?Vanna CULP, Jesse Shields Verified: ??02/16/2023 8:04 ?? Dermatopathologist Performed at: ??-[facility] Dept. of Pathology, [place] [address] High School Guidance Counselor: Kunal Rubi MD, AP, ??CLIA Certificate: [id number] DISCUSSION If there is an obvious clinical [...] labeled A1. ??sns 02/16/2023 8:04 AM EDT [facility] SPECIMEN FROM SKIN / Unknown 02/05/2023 3:00 PM EDT 02/05/2023 3:00 PM EDT Marek Bonilla MD PATHOLOGY/CYTOLOGY O [facility] [place] [address] [facility] [place] [address] documented in this encounter Visit Diagnoses Not on filedocumented in this encounter Care Teams Federal Judge Relationship Specialty Start Date End Date Magdalena Acosta MD [address] [place] [address] PCP - General Family Medicine 02/05/23 documented as of this encounter
--- OUTSIDE RECORDS SUMMARY | 2024-04-27 15:03 | XMS_ITS | Encounter Summary ---
Author Organization [facility] [place] [address] Care Team Providers Care Nematologist Name Role Phone Magdalena Acosta MD Primary Care Provider [phone] Encounter Details Date Type Department Care Team (Latest Contact Info) Description 03/18/2023 2:30 PM EDT Laboratory Appointment Lab [place] [phone] Positive FRANCISCO (antinuclear antibody) Social History Tobacco [...] AM EDT Appointment Hematology [place] [phone] 05/12/2024 10:00 AM EDT Office Visit Hematology [place] [address] Markel Borjas MD [facility] [place] [address] 03/01/2025 4:15 PM EDT Office Visit Dermatology at [address] [address] Marek Bonilla MD [address] [facility], [place], [place] [phone] documented as of this encounter Procedures Procedure [...] Differential, Automated (03/18/2023 2:14 PM EDT) Pathologist [facility] Neutrophil % 71.2 % [facility] Neutrophil Absolute 2.26 1.70 - 6.10 x10(3)/mc L [facility] Lymph % 18.2 % [facility] Lymphocytes Abs 0.6(L) 0.9 - 3.2 x10(3)/ L [facility] Monocyte % 9.7 % [facility] Monocyte Abs 0.3 0.3 - 0.9 x10(3)/[facility] Eos % 0.3 % [facility] Eosinophils Abs 0.0 0.0 - 0.4 x10(3)/[facility] Basophil % 0.6 % [facility] Baso Absolute 0.0 0.0 - 0.1 x10(3)/[facility] Immature Gran % 0.00 % [facility] Comment: Immature granulocytes(IG's)percentage and absolute count will include metamyelocytes, myelocytes, and promyelocytes. Blood smears from CBCs yielding IG's will be scanned manually for concordance. If this scan disagrees with the automated IG or if promyelocytes are noted, a manual differential will be performed. Immature Gran Absolute 0.00 0.00 - 0.04 x10(3)/[facility] Blood 03/18/2023 2:14 PM EDT 03/18/2023 2:24 PM EDT Narrative Resulting Agency Comment Spec In Lab Magdalena Peralta MD HEMATOLOGY ORDERABLE S [facility] [address] * (ABNORMAL) Hemogram (03/18/2023 2:14 PM EDT) White Blood Cell 3.2(L) 4.0 - 9.5 x10(3)/[facility] Red Blood Cell 3.44(L) 4.00 - 5.21 x10(6)/[facility] Hemoglobin 11.1(L) 11.7 - 15.5 g/dL [facility] Hematocrit 32.9(L) 35.7 - 45.8 % [facility] Mean Cell Volume 95.6(H) 82.6 - 94.4 fL [facility] Mean Cell Hemoglobin 32.3(H) 27.1 - 32.0 pg [facility] Mean Cell Hemoglobin Concentration 33.7 31.7 - 35.0 g/dL [facility] Platelet 144(L) 145 - 357 x10(3)/mc L [facility] RDW Standard Deviation 42.6 37.0 - 46.0 fL [facility] RDW coefficient of variation 12.3 11.5 - 14.1 % [facility] Mean Platelet Volume 9.4 7.6 - 12.9 fL [facility] NRBC% auto 0.0 % [facility] NRBC Absolute 0.000 0.000 - 0.000 x10(3)/mc L [facility] Blood 03/18/2023 2:14 PM EDT 03/18/2023 2:24 PM EDT Narrative Resulting Agency Comment Spec In Lab Magdalena Peralta MD HEMATOLOGY ORDERABLE S Performing Organization Address City/[facility]/ZIP Co de Phone Number [facility] [address] * (ABNORMAL) Sedimentation rate (03/18/2023 2:14 PM EDT) Sedimentation Rate Automated 68(H) 2 - 39 mm/hr [facility] Comment: Effective July 12, 2019 new capillary photometric technology has resulted in a change in reference ranges. It is recommended that each ESR result be reviewed with its own age appropriate reference range. Blood 03/18/2023 2:14 PM EDT 03/18/2023 2:24 PM EDT Narrative Resulting Agency Comment Spec In Lab Kia Viramontes DO HEMATOLOGY ORDERAB LES [facility] [address] * CRP, acute inflammation (03/18/2023 2:14 PM EDT) C-Reactive Protein 3.0 <=4.9 mg/L [facility] Blood 03/18/2023 2:14 PM EDT 03/18/2023 2:24 PM EDT Narrative Resulting Agency Comment Spec In Lab Kiagiacomo Mossew DO CHEMISTRY ORDERABL ES Performing Organization Address [facility] Co de Phone Number [facility] [address] * C3 Complement (03/18/2023 2:14 PM EDT) Complement C3 142 90 - 180 mg/dL [facility] Blood 03/18/2023 2:14 PM EDT 03/18/2023 2:24 PM EDT Narrative Resulting Agency Comment Spec In Lab Kia Mossew DO CHEMISTRY ORDERABL ES Performing Organization Address [facility] de Phone Number [facility] [address] * C4 Complement (03/18/2023 2:14 PM EDT) Complement C4 30 10 - 40 mg/dL [facility] Blood 03/18/2023 2:14 PM EDT 03/18/2023 2:24 PM EDT Narrative Resulting Agency Comment Spec In Lab Kia Mossew DO CHEMISTRY ORDERABL ES Performing Organization Address [facility] de Phone Number [facility] [address] * CK (03/18/2023 2:14 PM EDT) Creatine Kinase 38 0 - 160 unit/L [facility] Blood 03/18/2023 2:14 PM EDT 03/18/2023 2:24 PM EDT Narrative Resulting Agency Comment Spec In Lab Kia D Wander DO CHEMISTRY ORDERABL ES Performing Organization Address [facility] Co de Phone Number [facility] [address] * DNA Antibody (Double-Stranded) (03/18/2023 2:14 PM EDT) dsDNA Ab <0.6 <=15.0 IU/mL [facility] Comment: <10 negative 10-15 equivocal >15 positive This dsDNA antibody result was generated using a fluoroenzyme immunoassay on the VisuMotion 250 analyzer. This quantitative test is designed to detect IgG antibodies directed against double stranded DNA in human serum. The presence of antibodies that recognize dsDNA is a highly specific marker for systemic lupus erythematosus. Please note that as of 05/26/2022 that this testing is performed by the Special Chemistry Laboratory at [facility]. This change in testing location is associated with a change is testing method and reference intervals. Please review the results of this test in association with the posted reference intervals. Blood 03/18/2023 2:14 PM EDT 03/19/2023 7:19 AM EDT Narrative Resulting Agency Comment Spec In Lab Kia Viramontes DO LAB SEND OUT ORDER JODIE [facility] [place] [address] * (ABNORMAL) FRANCISCO Ab by IFA (03/18/2023 2:14 PM EDT) [facility] FRANCISCO Ab Screen Test ? Result ?Flag ??Unit ??RefValue Antinuclear Ab, HEp-2 ?Positive 1:2560 ??@ ?<1:80 (Negative) ??Substrate, S ? ADDITIONAL INFORMATION --------- ?Method: Immunofluorescence using HEp-2 cellular substrate. ??FRANCISCO Titer: ? 1:2560 ??FRANCISCO Pattern: ? Speckled ?Test Performed by: ?[facility] ?[address] [place] [address] ?Chain Person: Raymond Chaudhry M.D. Ph.D.; CLIA# [id number] (A) [facility] Blood 03/18/2023 2:14 PM EDT 03/18/2023 3:02 PM EDT Narrative Resulting Agency Comment Spec In Lab Kia Viramontes DO CHEMISTRY ORDERABL ES [facility] [address] * Comprehensive metabolic panel (non-fasting) (03/18/2023 2:14 PM EDT) Glucose 93 65 - 199 mg/dL [facility] Comment:Diabetes: >=200 mg/d L plus symptoms Blood Urea Nitrogen 18 8 - 18 mg/dL [facility] Creatinine 0.99 0.70 - 1.20 mg/dL [facility] Sodium 141 135 - 145 mmol/L [facility] Potassium 4.5 3.5 - 5.0 mmol/L [facility] Comment: Please note: ??Patients with WBC >100,000 may have falsely elevated Potassium levels. ??For accurate Potassium quantification in these patients send serum separator tube (gold top) for subsequent determinations. ??Contact the Clinical Chemistry Laboratory if there are any questions. Chloride 106 98 - 107 mmol/L [facility] Carbon Dioxide 24 22 - 31 mmol/L [facility] Anion Gap 11 5 - 15 mmol/L [facility] Calcium 10.0 8.5 - 10.5 mg/dL [facility] Protein, Total 7.3 6.1 - 8.0 g/dL [facility] Albumin 4.3 3.2 - 5.2 g/dL [facility] Aspartate Aminotransferase 26 0 - 30 unit/L [facility] Alanine Aminotransferase 11 0 - 30 unit/L [facility] Alkaline Phosphatase 91 35 - 105 unit/L [facility] Bilirubin, Total 0.4 0.2 - 1.3 mg/dL [facility] Est Glomerular Filtration Rate 62 >=60 mL/min/1. 73 m?? [facility] Comment: This patient's estimated GFR was [...] Lab Kia Viramontes DO CHEMISTRY ORDERABL ES [facility] [place] [address] documented in this encounter Visit Diagnoses Diagnosis Positive FRANCISCO (antinuclear antibody) Other and unspecified nonspecific immunological findings documented in this encounter Care Teams Nematologist Relationship Specialty Start Date End Date Magdalena Acosta MD [address] [place] [address] PCP - General Family Medicine 02/05/23 documented as of this encounter
--- OUTSIDE RECORDS SUMMARY | 2024-04-27 15:03 | XMS_ITS | Encounter Summary ---
Author Organization [facility] [place] [address] Care Team Providers Care Sheet Pile Driver Operator Name Role Phone Magdalena Acosta MD Primary Care Provider [phone] Reason for Referral * Consultation (Routine) - Closed Specialty Diagnoses / Procedures Referred By Contac t Referred To Contact Rheumatology Diagnoses Weakness Kyra Haas MD [facility] [address] [place] [address] [facility] Rheumatology [address] [place] [phone] Referral ID Status Reason Start Date Expiration Date V isits Requested Visits Authorized [id number] Closed Consult, Test & Treat PCP Updated and/or Approved 02/25/2023 02/25/2024 6 6 Encounter Details Date Type Department Care Team (Late st Contact Info) Description 02/25/2023 Transcribe Orders eDH Incoming Referrals [phone] Magdalena Acosta MD [address] [place] [address] Weakness Social History Tobacco Use [...] AM EDT Appointment [place] [address] 05/12/2024 10:00 AM EDT Office Visit [place] [address] Markel Borjas MD [facility] [address] HEMATOLOGY [place] [address] 03/01/2025 4:15 PM EDT Office Visit Dermatology at [place] [address] [place] [phone] Marek Bonilla MD [address] [place] [address] Scheduled Referrals Name Type Priority Associated Diagnoses Order Schedule Referral to Rheumatology Outpatient Referral Routine Weakness Ordered: 02/25/2023 documented as of this encounter Visit Diagnoses Diagnosis Weakness Other malaise and fatigue documented in this encounter Care Teams Sheet Pile Driver Operator Relationship Specialty Start Date End Date Magdalena Acosta MD [address] [place] [address] PCP - General Family Medicine 02/05/23 documented as of this encounter
--- OUTSIDE RECORDS SUMMARY | 2024-04-27 15:03 | XMS_ITS | Encounter Summary ---
Author Organization [facility] [place] [address] Care Team Providers Care Cinder Crane Operator Name Role Phone Magdalena Acosta MD Primary Care Provider [phone] Encounter Details Date Type Department Care Team (Late st Contact Info) Description 03/29/2023 Notes Only Cardiology at [address] [phone] Vahid Plasencia, RN Social History Tobacco Use [...] 82/51; Mild AR; Moderate MR; Trace TR 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 documented in this encounter Plan of Treatment Upcoming Encounters Date Type Department Care Team (Late st Contact Info) Description 05/12/2024 9:00 AM EDT Appointment [place] [address] 05/12/2024 10:00 AM EDT Office Visit [place] [address] Markel Borjas MD [facility] [address] [place] [address] 03/01/2025 4:15 PM EDT Office Visit Dermatology at [place] [address] [facility] [place] [phone] Marek Bonilla MD [address] [place] [address] documented as of this encounter Visit Diagnoses Not on filedocumented in this encounter Care Teams Cinder Crane Operator Relationship Specialty Start Date End Date Magdalena Acosta MD [address] [place] [address] PCP - General Family Medicine 02/05/23 documented as of this encounter
--- OUTSIDE RECORDS SUMMARY | 2024-04-27 15:03 | XMS_ITS | Encounter Summary ---
[place] [address] Care Team Providers Care Thread Tool Grinder Set Up Operator Name Role Phone Deborah Quiroga APRN Primary Care Provider [phone] Reason for Referral * Consultation (Routine) - Closed Specialty Diagnoses / Procedures Referred By Contac t Referred To Contact Rheumatology Diagnoses Positive FRANCISCO (antinuclear antibody) Arthralgia, unspecified joint Sandy Wu APRN [address] [place] [address] [facility] Rheumatology [address] [place] [phone] Referral ID Status Reason Start Date Expiration Date V isits Requested Visits Authorized [id number] Closed Consult, Test & Treat PCP Updated and/or Approved 01/01/2022 01/01/2023 6 6 Encounter Details Date Type Department Care Team (Latest Contact Info) Description 01/01/2022 Transcribe Orders eDH Incoming Referrals [phone] Sandy Wu APRN [address] [place], [place] [id number] Positive FRANCISCO (antinuclear antibody); Arthralgia, unspecified joint [...] AM EDT Appointment Hematology [place] [address] 05/12/2024 10:00 AM EDT Office Visit Hematology [place] [address] Markel Borjas MD [facility] [address] [place] [address] 03/01/2025 4:15 PM EDT Office Visit Dermatology at [place] [address] [place] [address] Marek Bonilla MD [address] [place] [address] Scheduled Referrals Name Type Priority Associated Diagnoses Orde r Schedule Referral to Rheumatology Outpatient Referral Routine Positive FRANCISCO (antinuclear antibody) Arthralgia, unspecified joint Ordered: 01/01/2022 documented as of this encounter Visit Diagnoses Diagnosis Positive FRANCISCO (antinuclear antibody) Other and unspecified nonspecific immunological findings Arthralgia, unspecified joint documented in this encounter Care Teams Thread Tool Grinder Set Up Operator Relationship Specialty Start Date End Date Deborah Quiroga APRN PCP - General Family Medicine 03/24/16 02/04/23 documented as of this encounter
--- OUTSIDE RECORDS SUMMARY | 2024-04-27 15:03 | XMS_ITS | Encounter Summary ---
Author Organization [facility] [place] [address] Care Team Providers Care Court Administrator Name Role Phone Deborah Quiroga APRN Primary Care Provider [phone] Encounter Details Date Type Department Care Team (Late st Contact Info) Description 06/17/2022 Ancillary Procedure Radiology Library at [facility] [phone] Deborah Quiroga APRN [address] [place] [phone] Social History Tobacco Use Types Packs/Day [...] AM EDT Appointment Hematology [place] [phone] 05/12/2024 10:00 AM EDT Office Visit [place]ematology [place] [address] Markel Borjas MD [facility] HEMATOLOGY [place] [address] 03/01/2025 4:15 PM EDT Office Visit Dermatology at [place] [address] [place] [phone] Marek Bonilla MD [address] [place] [address] documented as of this encounter Procedures Procedure Name Priority Date/Time Associated Diagnosis Comments FILM LIBRARY STORAGE ONLY MR SPINE Routine 06/17/2022 12:00 AM EST documented in this encounter Results * Film Library- Storage Only MR Spine (06/17/2022 12:00 AM EST) Narrative [facility] - 06/18/2022 11:00 AM EST This exam is auto-finalizing. It's purpose is for storage only. Deborah Quiroga APRN IMG FILM LIBRARY OR DERABLES Performing Organization Address City/State/[facility] de Phone Number [place], [place] documented in this encounter Visit Diagnoses Not on filedocumented in this encounter Care Teams Court Administrator Relationship Specialty Start Date End Date Deborah Quiroga APRN PCP - General Family Medicine 03/24/16 02/04/23 documented as of this encounter
--- OUTSIDE RECORDS SUMMARY | 2024-04-27 15:03 | XMS_ITS | Encounter Summary ---
Author Organization [facility] [place] [address] Care Team Providers Care Cooker Sulfate Name Role Phone Ashley Quirogazac Shields APRN Primary Care Provider [phone] Encounter Details Date Type Department Care Team [...] AM EDT Appointment Hematology [place] [address] 05/12/2024 10:00 AM EDT Office Visit [place]ematology [place] [address] Markel Borjas MD [facility] [address] [place] [address] 03/01/2025 4:15 PM EDT Office Visit Dermatology at [place] [address] [place] [address] Marek Bonilla MD [address] [facility] [place] [address] documented as of this encounter Visit Diagnoses Not on filedocumented in this encounter Care Teams Cooker Sulfate Relationship Specialty Start Date End Date Deborah Quiroga APRN PCP - General Family Medicine 03/24/16 02/04/23 documented as of this encounter
--- OUTSIDE RECORDS SUMMARY | 2024-04-27 15:03 | XMS_ITS | Encounter Summary ---
Author Organization [facility] [place] [address] Care Team Providers Care Supervisor Pastry Name Role Phone Magdalena Acosta MD Primary Care Provider [phone] Encounter Details Date Type Department Care Team [...] Appointment Hematology [place] [address] 05/12/2024 10:00 AM EDT Office Visit Hematology [place] [address] Markel Borjas MD [facility] [address] [place] [address] 03/01/2025 4:15 PM EDT Office Visit Dermatology at [place] [address] [facility] [place] [phone] Marek Bonilla MD [address] [facility], [place] [address] documented as of this encounter Visit Diagnoses Not on filedocumented in this encounter Care Teams Supervisor Pastry Relationship Specialty Start Date End Date Magdalena Acosta MD [address] [place] [address] PCP - General Family Medicine 02/05/23 documented as of this encounter
--- OUTSIDE RECORDS SUMMARY | 2024-04-27 15:03 | XMS_ITS | Encounter Summary ---
Author Organization [facility] [place] [address] Care Team Providers Care Container Repairer Name Role Phone Magdalena Acosta MD Primary Care Provider [phone] Encounter Details Date Type Department Care Team [...] AM EDT Appointment Hematology [place] [address] 05/12/2024 10:00 AM EDT Office Visit [place]ematology [place] [address] Markel Borjas MD [facility] [address] [place] [address] 03/01/2025 4:15 PM EDT Office Visit Dermatology at [place] [address] [facility] [place] [phone] Marek Bonilla MD [address] [facility], [place] [address] documented as of this encounter Visit Diagnoses Not on filedocumented in this encounter Care Teams Container Repairer Relationship Specialty Start Date End Date Magdalena Acosta MD [address] [place] [address] PCP - General Family Medicine 02/05/23 documented as of this encounter
--- OUTSIDE RECORDS SUMMARY | 2024-04-27 15:03 | XMS_ITS | Encounter Summary ---
Author Organization [facility] Address [facility] Erika ló[place] [address] Care Team Providers Care Waxed Bag Machine Operator Name Role Phone Deborah Quiroga APRN Primary Care Provider [phone] Encounter Details Date Type Department Care Team (Late st Contact Info) Description 01/09/2022 Refill Dermatology at [address] [address] Lupe Connor RN Social History [...] AM EDT Appointment Hematology [place] [address] 05/12/2024 10:00 AM EDT Office Visit Hematology [place] [address] Markel Borjas MD [facility] [address] HEMATOLOG[place] [address] 03/01/2025 4:15 PM EDT Office Visit Dermatology at [address] [address] Marek Bonilla MD [address] [place] [address] documented as of this encounter Visit Diagnoses Not on filedocumented in this encounter Care Teams Waxed Bag Machine Operator Relationship Specialty Start Date End Date Deborah Quiroga APRN PCP - General Family Medicine 03/24/16 02/04/23 documented as of this encounter
--- OUTSIDE RECORDS SUMMARY | 2024-04-27 15:03 | XMS_ITS | Encounter Summary ---
Author Organization [facility] [place] [address] Care Team Providers Care Paraffin Plant Operator Name Role Phone Deborah Quiroga APRN Primary Care Provider [phone] Encounter Details Date Type Department Care Team (Late st Contact Info) Description 11/09/2022 11:30 AM EDT - 11/09/2022 12:30 PM EDT Surgery [place] [address] Nitesh Escobedo MD [facility] [place] [address] CARDIAC CATHETERIZATION Social History Tobacco Use Types [...] Center 02/05/2023 2:30 PM Marek Bonilla MD [facility] New Medications to be Picked Up None For questions regarding this document or issues relating to this hospitalization on the Medical Service, please contact your inpatient physician through the [facility] Pipe Caulker . Issues afterhours and on weekends will be handled by the Hospitalist staff on-call. * Attachments The following attachments cannot be sent through Care Everywhere. * Coronary Angiogram: Post-op (Bulgarian) * Right Heart Catheterization: Pulmonary Artery Catheterization: Post-op (Bulgarian) documented in this encounter Medications at Time of Discharge Medication Sig Dispensed Refills Start Date End Date nystatin (MYCOSTATIN) 100,000 unit/gram Powder Apply topically 2 times daily as needed. 10/22/2022 Teez.byTouch Verio test strips Strip USE DAILY 01/03/2022 Teez.byToSynchrony Delica Plus Lancet 33 gauge Misc USE [...] MD - 11/09/2022 11:20 AM EDT . [facility] Interventional Cardiology Adult Pre-Procedure H&P Update: Cardiac Catheterization Purnima Thacker [id number] 1955 Chief Complaint: BONILLA HPI: Purnima Thacker [...] Marrero MD Interventional Cardiology 11/09/22 11:43 AM [facility] Pager: [phone] documented in this encounter Plan of Treatment Upcoming Encounters Date Type Department Care Team (Late st Contact Info) Description 05/12/2024 9:00 AM EDT Appointment [place] [address] 05/12/2024 10:00 AM EDT Office Visit [place]ematology [place] [address] Markel Borjas MD [facility] DR [place] [address] 03/01/2025 4:15 PM EDT Office Visit Dermatology at [place] [address] [place] [address] Marek Bonilla MD [address], [place] [address] documented as of this encounter Procedures Procedure Name Priority Date/Time Associated Diagnosis Comments CARDIAC CATHETERIZATION Routine 11/10/19 1:05 PM EDT Aortic valve stenosis, etiology of cardiac valve disease unspecified Cath Plmt Left Heart Cath & Arts W/Inj & Angio Img S&I ([id number]) 11/09/2022 11:51 AM EDT Aortic valve stenosis, etiology of cardiac valve disease unspecified EKG 12-LEAD Routine 11/09/2022 11:17 AM EDT Aortic valve stenosis, etiology of cardiac valve disease unspecified documented in this encounter Results * CARDIAC CATHETERIZATION (11/09/2022 1:05 PM EDT) Anatomical Region Laterality Modality Other Narrative 11/09/2022 2:01 PM EDT ?[facility] ? Cardiac Catheterization/Intervention Report ? Patient Name: Kirstie, Purnima M. ? Procedure Date: 11/09/2022 ? A #: [id number] ? Primary Physician: Nitesh Escobedo ? Case #: [id number] ? File Name: [id number] ? Catheterization Order Number: [id number] ? [facility] ? Final Report [place], [place] ? Patient Name: ? Purnima M. Kirstie ? ID#: ?[id number] ? : ?1955 ? Procedure Date: ? [...] was designated as ASA Class III. The [facility] clinical frailty scale ?is 4: [...] (Bezet) 457 ms MUSE SYSTEM Calculated P Arthur 44 degrees MUSE SYSTEM Calculated R Arthur 33 degrees MUSE SYSTEM Calculated T Arthur 30 degrees MUSE SYSTEM INTERPRETATION Sinus rhythm Occasional Premature ventricular complexes Otherwise normal ECG When compared with ECG of 21-SEP-2016 12:26, Premature ventricular complexes are now Present CO interval has decreased Nonspecific T wave abnormality has replaced inverted T waves in Inferior leads I personally reviewed the tracing and edited the fellows interpretation Confirmed by fellow MD Anitha, Carissa ([id number]) on 11/09/2022 6:17:28 PM Confirmed by Elsa [...] MD) documented in this encounter Care Teams Paraffin Plant Operator Relationship Specialty Start Date End Date Junaid Deborah Shields, TICKER INSTALLER PCP - General Family Medicine 03/24/16 02/04/23 documented as of this encounter
--- OUTSIDE RECORDS SUMMARY | 2024-04-27 15:03 | XMS_ITS | Encounter Summary ---
Author Organization [facility] [address] Care Team Providers Care Forming Fixer Name Role Phone Magdalena Acosta MD Primary Care Provider [phone] Encounter Details Date Type Department Care Team (Late st Contact Info) Description 05/08/2023 Telephone [place] [address] Luis Felipe Ott MD [facility] [place] [address] Social History Tobacco Use Types Packs/Day Years [...] 0426 Referring Provider: Nitesh Baltazar Patient Location: [facility] Presenting Symptoms per OSH: 67 [...] diuresis with IV furosemide 20 x 1 ([id number]/47 at rheumatology appointment), SpO2 85% on RA -> 95% on 2L NC, HR 120s. Examination significant for decreased breath sounds at the bases. Pertinent Diagnostic Findings: CBC - Hgb 10.5 CMP - Cr 1.1 BNP 48787 HsTrop 1358 Lactate 1.6 D-dimer 1183, CTPE pending CXR demonstrated pulmonary vascular congestion US showed bilateral b lines Bedside echo reportedly similar to prior TTE for LV function OSH Interventions: ASA 324 Heparin gtt Plan: Transfer to [facility] Above recommendations/plans are based on my conversation with the referring provider. I have not personally interviewed or examined this patient. Luis Felipe Ott MD Die Finisher Forging Received a call from provider emergently at 715am. Mentating well and BP 87/53. HR 108 and diursingwell. They were about to start phenylephrine which I stressed was not a good option given concern for severe and increasing afterload. She is warm on exam, mentating and urinating and we do not need to amrit a BP if those things remain stable. Nico Segura, PGY-6 [employer] [id number] documented in this encounter Plan of Treatment Upcoming Encounters Date Type Department Care Team (Late st Contact Info) Description 05/12/2024 9:00 AM EDT Appointment [place] [address] 05/12/2024 10:00 AM EDT Office Visit [place]ematology [place] [address] Markel Borjas MD [facility] DR HEMATOLOGY [place] [address] 03/01/2025 4:15 PM EDT Office Visit Dermatology at [place] [address] [place] [address] Marek Bonilla MD [address], [place] [address] documented as of this encounter Visit Diagnoses Not on filedocumented in this encounter Care Teams Forming Fixer Relationship Specialty Start Date End Date Magdalena Acosta MD [address] [place] [address] PCP - General Family Medicine 02/05/23 documented as of this encounter
--- OUTSIDE RECORDS SUMMARY | 2024-04-27 15:03 | XMS_ITS | Encounter Summary ---
[place] [address] Care Team Providers Care Medical Accountant Name Role Phone Magdalena Acosta MD Primary Care Provider [phone] Reason for Visit * Reason Comments Skin Lesion Encounter Details Date Type Department Care Team (Late st Contact Info) Description 04/20/2023 10:00 AM EDT Office Visit Dermatology at [address] [address] Marek Bonilla MD [address] [facility], [place] [address] Seborrheic keratosis Social History Tobacco Use Types [...] cutaneous and ocular 3. Previously told by pilot supervisor that she had corneal tears from her [...] AM EDT Appointment Hematology [place] [address] 05/12/2024 10:00 AM EDT Office Visit Hematology [place] [address] Markel Borjas MD [facility] [address] [place] [address] 03/01/2025 4:15 PM EDT Office Visit Dermatology at [address] [place] [address] Marek Bonilla MD [address] [facility], [place] [address] documented as of this encounter Visit Diagnoses Diagnosis Seborrheic keratosis Other seborrheic keratosis documented in this encounter Care Teams Medical Accountant Relationship Specialty Start Date End Date Magdalena Acosta MD [address] [place] [address] PCP - General Family Medicine 02/05/23 documented as of this encounter
--- OUTSIDE RECORDS SUMMARY | 2024-04-27 15:03 | XMS_ITS | Encounter Summary ---
Author Organization [facility] Address [facility] [place] [address] Care Team Providers Care Military Aircraft Designer Name Role Phone Ashley Quirogazac Shields APRN Primary Care Provider [phone] Reason for Referral * Consultation (Routine) - Closed Specialty Diagnoses / Procedures Referred By Contac t Referred To Contact Neurology Diagnoses Neck pain Popeye Rogers MD [facility] [place] [address] [facility] [address] [address] Referral ID Status Reason Start Date Expiration Date V isits Requested Visits Authorized [id number] Closed Consult, Test & Treat 06/29/2022 06/29/2023 1 1 Reason for Visit * Reason Comments Neck Pain Weak in both arms, p ain and tingling in arms and hands Encounter Details Date Type Department Care Team (Late st Contact Info) Description 06/29/2022 10:20 AM EST Office Visit [facility] [place] [address] Popeye Rogers MD [facility] [place] [address] Neck pain Social History Tobacco Use Types [...] have EMG and nerve conduction studies in [place] that showed carpal tunnel syndrome. I do not have a copy of that report. documented in this encounter Plan of Treatment Upcoming Encounters Date Type Department Care Team (Late st Contact Info) Description 05/12/2024 9:00 AM EDT Appointment Hematology [place] [address] 05/12/2024 10:00 AM EDT Office Visit Hematology [place] [address] Markel Borjas MD [facility] DR [place] [address] 03/01/2025 4:15 PM EDT Office Visit Dermatology at [address] [place] [address] Marek Bonilla MD [address] [place] [address], [place] [address] Scheduled Referrals Name Type Priority Associated Diagnoses Orde r Schedule Referral to Neurology Outpatient Referral Routine Neck pain Ordered: 06/29/2022 documented as of this encounter Visit Diagnoses Diagnosis Neck pain Cervicalgia documented in this encounter Care Teams Military Aircraft Designer Relationship Specialty Start Date End Date Deborah Quiroga APRN PCP - General Family Medicine 03/24/16 02/04/23 documented as of this encounter
--- OUTSIDE RECORDS SUMMARY | 2024-04-27 15:03 | XMS_ITS | Encounter Summary ---
Author Organization [facility] Address [facility] [place] [address] Care Team Providers Care Diamond Sizer And Grader Name Role Phone Magdalena Acosta MD Primary Care Provider [phone] Encounter Details Date Type Department Care Team (Late st Contact Info) Description 04/27/2023 3:00 PM EDT Office [place] [address] Magdalena Peralta MD [facility] DR RHEUM[place] [address] Mixed connective tissue disease Social History Tobacco [...] 1:5120 speckled; VIC negative; Myositis panel with DIRECTOR OF UNDERGRADUATE ADMISSIONS ab 149.1 (positive); Anti U1RNP IgG 119; [...] AM EDT Appointment Hematology [place] [address] 05/12/2024 10:00 AM EDT Office Visit Hematology [place] [address] Markel Borjas MD [facility] [address] HEMATOLOGY [place] [address] 03/01/2025 4:15 PM EDT Office Visit Dermatology at [place] [address] [place] [address] Marek Bonilla MD [address], [place] [address] documented as of this encounter Visit Diagnoses Diagnosis Mixed connective tissue disease Other specified diffuse disease of connective tissue documented in this encounter Care Teams Diamond Sizer And Grader Relationship Specialty Start Date End Date Magdalena Acosta MD [address] [place] [address] PCP - General Family Medicine 02/05/23 documented as of this encounter
--- OUTSIDE RECORDS SUMMARY | 2024-04-27 15:03 | XMS_ITS | Encounter Summary ---
Author Organization [facility] [place] [address] Care Team Providers Care Testing And Regulating Chief Name Role Phone Deborah Quiroga APRN Primary Care Provider [phone] Encounter Details Date Type Department Care Team (Late st Contact Info) Description 06/05/2021 Interpretation Only [address] [address] Deborah Quiroga APRN [address] [phone] Social History Tobacco Use Types Packs/Day Years [...] AM EDT Appointment H[place]ology [place] [address] 05/12/2024 10:00 AM EDT Office Visit [place]ology [place] [address] Markel Borjas MD [facility] DR HEMATOLOGY [place] [address] 03/01/2025 4:15 PM EDT Office Visit Dermatology at [place] [address] [place] [address] Marek Bonilla MD [address], [place] [address] documented as of this encounter Procedures Procedure Name Priority Date/Time Associated Diagnosis Comments DXA CENTRAL SPINE, HIP, AND/OR WHOLE BODY (GENERIC) Routine 06/05/2021 11:58 AM EDT documented in this encounter Results * DXA Central Spine, Hip, and/or Whole Body (Generic) (06/05/2021 11:58 AM EDT) PT CLASS O RAD ADMITDTTM RAD PT RAD INFO [id number]^E VERETT^DEBORAH ^E RAD EXAM DESC XDXAC^DEXA SCAN [...] who have questions please contact the health foster care social worker that requested your imaging first. ? Electronically signed by: Rocael Villatoro MD, [facility] ([phone]), at 06/05/2021 12:00 PM Narrative 06/05/2021 12:00 [...] patients who have questions please contactthe health foster care social worker that requested your imaging first. Deborah LLAMAS DEXA ORDERABLES documented in this encounter Visit Diagnoses Not on filedocumented in this encounter Care Teams Testing And Regulating Chief Relationship Specialty Start Date End Date Deborah Quiroga APRN PCP - General Family Medicine 03/24/16 02/04/23 documented as of this encounter
--- OUTSIDE RECORDS SUMMARY | 2024-04-27 15:03 | XMS_ITS | Encounter Summary ---
Author Organization [facility] [place] [address] Care Team Providers Care Poultry Farm Manager Name Role Phone Magdalena Acosta MD Primary Care Provider [phone] Encounter Details Date Type Department Care Team (Late st Contact Info) Description 02/17/2023 2:00 PM EDT Office [place] [address] Alirio Esparza MD Aortic valve stenosis, etiology [...] AM EDT Appointment Hematology [place] [address] 05/12/2024 10:00 AM EDT Office Visit Hematology [place] [address] Markel Borjas MD [facility] [place] [address] 03/01/2025 4:15 PM EDT Office Visit Dermatology at [place] [address] [place] [address] Marek Bonilla MD [address] [facility], [place] [address] documented as of this encounter Visit Diagnoses Diagnosis Aortic valve stenosis, etiology of cardiac valve disease unspecified documented in this encounter Care Teams Poultry Farm Manager Relationship Specialty Start Date End Date Magdalena Acosta MD [address] [place] [address] PCP - General Family Medicine 02/05/23 documented as of this encounter
--- OUTSIDE RECORDS SUMMARY | 2024-04-27 15:03 | XMS_ITS | Encounter Summary ---
Author Organization [facility] [place] [address] Care Team Providers Care Brick Stacker Name Role Phone Magdalena Acosta MD Primary Care Provider [phone] Encounter Details Date Type Department Care Team [...] AM EDT Appointment Hematology [place] [address] 05/12/2024 10:00 AM EDT Office Visit [place]ology [place] [address] Markel Borjas MD [facility] DR HEMATOLOGY [place] [address] 03/01/2025 4:15 PM EDT Office Visit Dermatology at [place] [address] [facility] [place] [address] Marek Bonilla MD [address] [facility], [place] [address] documented as of this encounter Visit Diagnoses Not on filedocumented in this encounter Care Teams Brick Stacker Relationship Specialty Start Date End Date Magdalena Acosta MD [address] [place] [address] PCP - General Family Medicine 02/05/23 documented as of this encounter
--- OUTSIDE RECORDS SUMMARY | 2024-04-27 15:03 | XMS_ITS | Encounter Summary ---
Author Organization [facility] [place] [address] Care Team Providers Care Sales And Marketing Coordinator Name Role Phone Deborah Quiroga APRN Primary Care Provider [phone] Encounter Details Date Type Department Care Team (Latest Contact Info) Description 07/03/2022 12:28 PM EST - 07/03/2022 1:35 PM EST Hospital Encounter Hematology [place] [address] Chronic idiopathic neutropenia Discharge Disposition: Home Social [...] AM EDT Appointment Hematology [place] [address] 05/12/2024 10:00 AM EDT Office Visit Hematology [place] [address] Markel Borjas MD [facility] DR [place] [address] 03/01/2025 4:15 PM EDT Office Visit Dermatology at [place] [address] [facility] [place] [address] Marek Bonilla MD [address], [place] [address] documented as of this encounter Procedures Procedure [...] 12:40 PM EST) Neutrophil % 72.9 % [facility] Neutrophil Absolute 2.61 1.70 - 6.10 x10(3)/mc L [facility] Lymph % 18.4 % [facility] Lymphocytes Abs 0.7(L) 0.9 - 3.2 x10(3)/mc L [facility] Monocyte % 8.4 % [facility] Monocyte Abs 0.3 0.3 - 0.9 x10(3)/mc L [facility] Eos % 0.0 % [facility] Eosinophils Abs 0.0 0.0 - 0.4 x10(3)/mc L [facility] Basophil % 0.3 % [facility] Baso Absolute 0.0 0.0 - 0.1 x10(3)/mc L [facility] Immature Gran % 0.00 % WHITE [...] Absolute 0.00 0.00 - 0.04 x10(3)/mc L [facility] Blood 07/03/2022 12:4 0 PM EST 07/03/2022 1:03 PM EST Narrative Resulting Agency Comment Spec In Lab Markel Borjas MD HEMATOLOGY ORDERAB LES [facility] [place] [address] * (ABNORMAL) Hemogram (07/03/2022 12:40 PM EST) White Blood Cell 3.6(L) 4.0 - 9.5 x10(3)/ L [facility] Red Blood Cell 3.61(L) 4.00 - 5.21 x10(6)/mc L [facility] Hemoglobin 11.7 11.7 - 15.5 g/dL [facility] Hematocrit 34.5(L) 35.7 - 45.8 % [facility] Mean Cell Volume 95.6(H) 82.6 - 94.4 fL [facility] Mean Cell Hemoglobin 32.4(H) 27.1 - 32.0 pg [facility] Mean Cell Hemoglobin Concentration 33.9 31.7 - 35.0 g/dL [facility] Platelet 171 145 - 357 x10(3)/mc L [facility] RDW Standard Deviation 40.5 37.0 - 46.0 fL [facility] RDW coefficient of variation 11.5 11.5 - 14.1 % [facility] Mean Platelet Volume 9.2 7.6 - 12.9 fL [facility] NRBC% auto 0.0 % [facility] NRBC Absolute 0.000 0.000 - 0.000 x10(3)/ L [facility] Blood 07/03/2022 12:4 0 PM EST 07/03/2022 1:03 PM EST Narrative Resulting Agency Comment Spec In Lab Markel Borjas MD HEMATOLOGY ORDERAB LES [facility] [place] [address] * (ABNORMAL) Comprehensive metabolic panel (non-fasting) (07/03/2022 12:40 PM EST) Glucose 92 65 - 199 mg/dL [facility] Comment:Diabetes: >=200 mg/d L plus symptoms Blood Urea Nitrogen 22(H) 8 - 18 mg/dL [facility] Creatinine 0.80 0.70 - 1.20 mg/dL [facility] Carbon Dioxide 23 22 - 31 mmol/L [facility] Anion Gap 11 5 - 15 mmol/L [facility] Calcium 10.1 8.5 - 10.5 mg/dL [facility] Protein, Total 7.6 6.1 - 8.0 g/dL [facility] Albumin 4.1 3.2 - 5.2 g/dL [facility] Aspartate Aminotransferase 25 0 - 30 unit/L [facility] Alanine Aminotransferase 14 0 - 30 unit/L [facility] Alkaline Phosphatase 80 35 - 105 unit/L [facility] Bilirubin, Total 0.3 0.2 - 1.3 mg/dL [facility] Est Glomerular Filtration Rate 81 >=60 mL/min/1. 73 m?? [place] [...] Lab Markel Borjas MD CHEMISTRY ORDERABL ES [facility] [place] [place] [address] documented in this encounter Visit Diagnoses Diagnosis Chronic idiopathic neutropenia Other neutropenia documented in this encounter Care Teams Sales And Marketing Coordinator Relationship Specialty Start Date End Date Deborah Quiroga APRN PCP - General Family Medicine 03/24/16 02/04/23 documented as of this encounter
--- OUTSIDE RECORDS SUMMARY | 2024-04-27 15:03 | XMS_ITS | Encounter Summary ---
Author Organization [facility] [address] Care Team Providers Care Glaze Maker Name Role Phone Deborah Quiroga APRN Primary Care Provider [phone] Encounter Details Date Type Department Care Team (Late st Contact Info) Description 06/08/2022 Ancillary Procedure Radiology Library at [facility] [place] [phone] Deborah Quiroga APRN [address] [place] [phone] Social History Tobacco Use Types Packs/Day [...] AM EDT Appointment [place] [address] 05/12/2024 10:00 AM EDT Office Visit [place] [address] Markel Borjas MD [facility] HEMATOLOGY [place] [address] 03/01/2025 4:15 PM EDT Office Visit Dermatology at [place] [address] [place] [address] Marek Bonilla MD [address] [place] [address] documented as of this encounter Procedures Procedure Name Priority Date/Time Associated Diagnosis Comments FILM LIBRARY STORAGE ONLY DX SPINE Routine 06/08/2022 12:00 AM EST documented in this encounter Results * Film Library- Storage Only DX Spine (06/08/2022 12:00 AM EST) Narrative [facility] - 06/18/2022 10:57 AM EST This exam is auto-finalizing. It's purpose is for storage only. Deborah Quiroga APRN IMG FILM LIBRARY OR DERABLES Performing Organization Address City/State/[facility] de Phone Number [place], [place] documented in this encounter Visit Diagnoses Not on filedocumented in this encounter Care Teams Glaze Maker Relationship Specialty Start Date End Date Deborah Quiroga APRN PCP - General Family Medicine 03/24/16 02/04/23 documented as of this encounter
--- OUTSIDE RECORDS SUMMARY | 2024-04-27 15:03 | XMS_ITS | Encounter Summary ---
Author Organization [facility] Address [place] [address] Care Team Providers Care Stunner And Shackler Name Role Phone Magdalena Acosta MD Primary Care Provider [phone] Reason for Visit * Consultation (Routine) - Closed Specialty Diagnoses / Procedures Referred By Contac t Referred To Contact Rheumatology Diagnoses Weakness Kyra Haas MD [facility] [address] [place] [address] [facility] Rheumatology [address] [place] [phone] Referral ID Status Reason Start Date Expiration Date V isits Requested Visits Authorized [id number] Closed Consult, Test & Treat PCP Updated and/or Approved 02/25/2023 02/25/2024 6 6 Encounter Details Date Type Department Care Team (Late st Contact Info) Description 03/18/2023 1:00 PM EDT Office [place] [address] Kia Viramontes DO [facility] [place] [address] Magdalena Peralta MD [facility] [place] [address] Positive FRANCISCO (antinuclear antibody) Social [...] 1:5120 speckled VIC negative Myositis panel with UPSCALE SECURITY OFFICER ab 149.1 (positive) Anti U1RNP IgG 119 [...] a chair without assistance of upper extremities. 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 Recommendations: #mixed connective tissue disease Start hydroxychloroquine 200 mg qd Labs today: repeat FRANCISCO, dsDNA, complements, CBC, CMP, CK, ESR, CRP Follow up 1 month The patient was seen and discussed with Dr. Wander Peralta MD Rheumatology Fellow Pager: [phone] CC: Kyra Haas * Kia Viramontes DO [...] AM EDT Appointment Hematology [place] [address] 05/12/2024 10:00 AM EDT Office Visit Hematology [place] [address] Markel Borjas MD [facility] [address] [place] [address] 03/01/2025 4:15 PM EDT Office Visit Dermatology at [place] [address] [place] [address] Marek Bonilla MD [address] [facility] [place] [address] documented as of this encounter Results * Comprehensive metabolic panel (non-fasting) (03/18/2023 2:14 PM EDT) [facility] Signature Glucose 93 65 - 199 mg/dL [facility] Comment:Diabetes: >=200 mg/d L plus symptoms Blood Urea Nitrogen 18 8 - 18 mg/dL [facility] Creatinine 0.99 0.70 - 1.20 mg/dL [facility] Sodium 141 135 - 145 [...] DO CHEMISTRY ORDERABL ES Performing Organization Address City/State/[facility] Co de Phone Number [facility] [place] [address] * (ABNORMAL) FRANCISCO Ab by IFA (03/18/2023 2:14 PM EDT) FRANCISCO Ab Screen Test ? Result ?Flag ??Unit ??RefValue Antinuclear Ab, HEp-2 ?Positive 1:2560 ??@ ?<1:80 (Negative) ??Substrate, S ? ADDITIONAL INFORMATION --------- ?Method: Immunofluorescence using HEp-2 cellular substrate. ??FRANCISCO Titer: ? 1:2560 ??FRANCISCO Pattern: ? Speckled ?Test Performed by: ?[facility] ?[address] [id number] ?Cmm Operator: Raymond Chaudhry M.D. Ph.D.; CLIA# [id number] ([id number]) [facility] Blood 03/18/2023 2:14 PM EDT 03/18/2023 3:02 PM EDT Narrative Resulting Agency Comment Spec In Lab Kia Viramontes DO CHEMISTRY ORDERABL ES [facility] [place] [address] * DNA Antibody (Double-Stranded) (03/18/2023 2:14 PM EDT) dsDNA Ab <0.6 <=15.0 IU/mL [facility] Comment: <10 negative 10-15 equivocal >15 positive This dsDNA antibody result was generated using a fluoroenzyme immunoassay on the [employer] 250 analyzer. This quantitative test is designed to detect IgG antibodies directed against double stranded DNA in human serum. The presence of antibodies that recognize dsDNA is a highly specific marker for systemic lupus erythematosus. Please note that as of 05/26/2022 that this testing is performed by the Special [facility] Laboratory at [facility] [place]. This change in testing location is associated with a change is testing method and reference intervals. Please review the results of this test in association with the posted reference intervals. Blood 03/18/2023 2:14 PM EDT 03/19/2023 7:19 AM EDT Narrative Resulting Agency Comment Spec In Lab Kia Viramontes DO LAB SEND OUT ORDER JODIE Performing Organization Address [facility] Co de Phone Number [facility] [place] [address] * CK (03/18/2023 2:14 PM EDT) Creatine Kinase 38 0 - 160 unit/L [facility] Blood 03/18/2023 2:14 PM EDT 03/18/2023 2:24 PM EDT Narrative Resulting Agency Comment Spec In Lab Kia Viramontes DO CHEMISTRY ORDERABL ES Performing Organization Address [facility] Co de Phone Number [facility] [place] [address] * C4 Complement (03/18/2023 2:14 PM EDT) Complement C4 30 10 - 40 mg/dL [facility] Blood 03/18/2023 2:14 PM EDT 03/18/2023 2:24 PM EDT Narrative Resulting Agency Comment Spec In Lab Kia D Wander DO CHEMISTRY ORDERABL ES Performing Organization Address [facility] Co de Phone Number [facility] [place] [address] * C3 Complement (03/18/2023 2:14 PM EDT) Complement C3 142 90 - 180 mg/dL [facility] Blood 03/18/2023 2:14 PM EDT 03/18/2023 2:24 PM EDT Narrative Resulting Agency Comment Spec In Lab Kia Viramontes DO CHEMISTRY ORDERABL ES Performing Organization Address [facility] Co de Phone Number [facility] [place] [address] * CRP, acute inflammation (03/18/2023 2:14 PM EDT) C-Reactive Protein 3.0 <=4.9 mg/L [facility] Blood 03/18/2023 2:14 PM EDT 03/18/2023 2:24 PM EDT Narrative Resulting Agency Comment Spec In Lab Kia Viramontes DO CHEMISTRY ORDERABL ES Performing Organization Address [facility] Co de Phone Number [facility] [place] [address] * (ABNORMAL) Sedimentation rate (03/18/2023 2:14 PM [...] DO HEMATOLOGY ORDERAB LES Performing Organization Address [facility] Co de Phone Number [facility] [place] [address] documented in this encounter Visit Diagnoses Diagnosis Positive FRANCISCO (antinuclear antibody) Other and unspecified nonspecific immunological findings documented in this encounter Care Teams Stunner And Shackler Relationship Specialty Start Date End Date Magdalena Acosta MD [address] [place] [address] PCP - General Family Medicine 02/05/23 documented as of this encounter
--- OUTSIDE RECORDS SUMMARY | 2024-04-27 15:03 | XMS_ITS | Encounter Summary ---
[place] [address] Care Team Providers Care Anglesmith Helper Name Role Phone Magdalena Acosta MD Primary Care Provider [phone] Reason for Visit * Reason Comments Annual Exam Encounter Details Date Type Department Care Team (Late st Contact Info) Description 02/05/2023 2:30 PM EDT Office Visit Dermatology at [address] [address] Marek Bonilla MD [address] [facility] [place] [address] Rosacea; Ocular rosacea; Nevus Social History Tobacco [...] cutaneous and ocular 2. Previously told by primary counselor that she had corneal tears from [...] AM EDT Appointment Hematology [place] [address] 05/12/2024 10:00 AM EDT Office Visit Hematology [place] [address] Markel Borjsa MD [facility] [address] [place] [address] 03/01/2025 4:15 PM EDT Office Visit Dermatology at [place] [address] [place] [address] Marek Bonilla MD [address] [facility] [place] [address] documented as of this encounter Visit Diagnoses Diagnosis Rosacea Ocular rosacea Rosacea Nevus Benign neoplasm of skin, site unspecified documented in this encounter Care Teams Anglesmith Helper Relationship Specialty Start Date End Date Magdalena Acosta MD [address] [place] [address] PCP - General Family Medicine 02/05/23 documented as of this encounter
--- OUTSIDE RECORDS SUMMARY | 2024-04-27 15:03 | XMS_ITS | Encounter Summary ---
[place] [address] Care Team Providers Care Toggler Name Role Phone Magdalena Acosta MD Primary Care Provider [phone] Reason for Visit * Reason Comments Suture / Staple Removal Encounter Details Date Type Department Care Team (Late st Contact Info) Description 02/16/2023 10:00 AM EDT Office Visit Dermatology at [place] [address] [place] [phone] Marek Bonilla MD [address] [facility] DERMATOLOGY [place], [place] [phone] Visit for suture removal Social History Tobacco [...] AM EDT Appointment Hematology [place] [address] 05/12/2024 10:00 AM EDT Office Visit Hematology [place] [address] Markel Borjas MD [facility] [place] [address] 03/01/2025 4:15 PM EDT Office Visit Dermatology at [place] [address] [place] [address] Marek Bonilla MD [address] [place] [address] documented as of this encounter Visit Diagnoses Diagnosis Visit for suture removal Encounter for removal of sutures documented in this encounter Care Teams Toggler Relationship Specialty Start Date End Date Magdalena Acosta MD [address] [place] [address] PCP - General Family Medicine 02/05/23 documented as of this encounter
--- OUTSIDE RECORDS SUMMARY | 2024-04-27 15:03 | XMS_ITS | Encounter Summary ---
Author Organization [facility] Address [facility] [place] [address] Care Team Providers Care Biology Internship Name Role Phone Junaid Deborah Shields APRN Primary Care Provider [phone] Encounter Details Date Type Department Care Team (Latest Contact Info) Description 06/22/2022 10:00 AM EST Office [place] [phone] Raymond Loredo MD [facility] [place] [address] Raynaud's phenomenon without gangrene; Positive FRANCISCO (antinuclear [...] be done locally or here at [facility] that the current time is not particularly [...] surgery by Dr. Rogers here at [facility]. In addition to painful dysesthesias in her [...] radiocarpal or ulnocarpal joints. Hands: Normal investment sales assistant and claw. SJC/TJC 0/0. Knees: Decreased flexion [...] Hematology [place] [address] 05/12/2024 10:00 AM EDT Office Visit Hematology [place] [address] Markel Borjas MD [facility] [address] [place] [address] 03/01/2025 4:15 PM EDT Office Visit Dermatology at [place] [address] [place] [address] Marek Bonilla MD [address] [facility] [place] [address] documented as of this encounter Visit Diagnoses Diagnosis Raynaud's phenomenon without gangrene Positive FRANCISCO (antinuclear antibody) Other and unspecified nonspecific immunological findings Primary osteoarthritis involving multiple joints Cervical disc disorder at C6-C7 level with radiculopathy documented in this encounter Care Teams Biology Internship Relationship Specialty Start Date End Date Deborah Quiroga APRN PCP - General Family Medicine 03/24/16 02/04/23 documented as of this encounter
--- OUTSIDE RECORDS SUMMARY | 2024-04-27 15:03 | XMS_ITS | Encounter Summary ---
Author Organization [facility] [place] [address] Care Team Providers Care Captain'S Assistant Name Role Phone Magdalena Acosta MD Primary Care Provider [phone] Encounter Details Date Type Department Care Team [...] AM EDT Appointment Hematology [place] [address] 05/12/2024 10:00 AM EDT Office Visit Hematology [place] [address] Markel Borjas MD [facility] DR HEMATOLOGY [place] [address] 03/01/2025 4:15 PM EDT Office Visit Dermatology at [place] [address] [facility] [place] [address] Marek Bonilla MD [address] [facility] [place] [address] documented as of this encounter Visit Diagnoses Not on filedocumented in this encounter Care Teams Captain'S Assistant Relationship Specialty Start Date End Date Magdalena Acosta MD [address] [place] [address] PCP - General Family Medicine 02/05/23 documented as of this encounter
--- OUTSIDE RECORDS SUMMARY | 2024-04-27 15:03 | XMS_ITS | Encounter Summary ---
Author Organization [facility] Address [facility] [place] [address] Care Team Providers Care Engineer Systems Name Role Phone Deborah Quiroga APRN Primary Care Provider [phone] Reason for Visit * Reason Comments Follow-up Encounter Details Date Type Department Care Team (Late st Contact Info) Description 07/03/2022 1:30 PM EST Office Visit Hematology [place] [address] Markel Borjas MD [facility] [address] HEMATOLOGY [place] [address] Consuelo Sommer APRN [facility] DR HEMATOLOGY [place] [address] Chronic idiopathic neutropenia; Dysuria Social History Tobacco [...] 07/03/2022 1:30 PM EST Hematology Outpatient Clinic [facility] Hematology Outpatient Consult Note CC: 60 [...] TOUCH PREP, CLOT SECTION, CORE ??BIOPSY); [OSR# [id number], COLLECTED 06/23/2016, 19 SLIDES]: ?1. 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 Extremities: No edema. Labs: Hgb= 11.7 Yaos=257 ANC= 2.5 Imaging As above - reviewed [...] AM EDT Appointment Hematology [place] [address] 05/12/2024 10:00 AM EDT Office Visit Hematology [place] [address] Markel Borjas MD [facility] [address] HEMATOLOGY [place] [address] 03/01/2025 4:15 PM EDT Office Visit Dermatology at [place] [address] [facility] [place] [address] Marek Bonilla MD [address] [facility] [place] [address] documented as of this encounter Procedures Procedure [...] - GEN ERAL ORDERABLES Performing Organization Address City/[facility]/ZIP Co de Phone Number [facility] [place] [address] * (ABNORMAL) Urinalysis Microscopic Exam (07/03/2022 2:00 [...] Borjas MD URINE ORDERABLES Performing Organization Address City/[facility]/ZIP Co de Phone Number [facility] [place] [address] * (ABNORMAL) Urinalysis with reflex Culture (07/03/2022 [...] HOSPITAL LABORATORY Leukocytes, Urine Dipstick Small(A) Negative [facility] Appearance, Urine Dipstick Clear Clear [facility] Specific [place] Urine Automated 1.022 1.005 - 1.030 [facility] Color, Urine Dipstick Yellow Yellow [facility] Reflex to Culture Yes [facility] Clean Catch Urine 07/03/2022 2:00 PM EST 07/03/2022 2:29 PM EST Narrative Resulting Agency Comment Spec In Lab Markel Borjas MD URINE ORDERABLES [facility] [place] [address] * (ABNORMAL) Comprehensive metabolic panel (non-fasting) (07/03/2022 [...] MD CHEMISTRY ORDERABL ES [facility] [place] [address] documented in this encounter Visit Diagnoses Diagnosis Chronic idiopathic neutropenia Other neutropenia Dysuria documented in this encounter Care Teams Engineer Systems Relationship Specialty Start Date End Date Deborah Quiroga APRN PCP - General Family Medicine 03/24/16 02/04/23 documented as of this encounter
--- OUTSIDE RECORDS SUMMARY | 2024-04-27 15:03 | XMS_ITS | Encounter Summary ---
Author Organization [facility] [place] [address] Care Team Providers Care Rustic Fence Builder Name Role Phone Magdalena Acosta MD Primary Care Provider [phone] Encounter Details Date Type Department Care Team (Late st Contact Info) Description 03/29/2023 Orders Only Cardiology at [address] [address] Ranjan Delgado MD [facility] [place] [address] Severe aortic stenosis (Primary Dx) Social History [...] AM EDT Appointment Hematology [place] [address] 05/12/2024 10:00 AM EDT Office Visit Hematology [place] [address] Markel Borjas MD [facility] [address] [place] [address] 03/01/2025 4:15 PM EDT Office Visit Dermatology at [place] [address] [place] [address] Marek Bonilla MD [address] [place] [address] Scheduled Orders Name Type Priority Associated Diagnoses [...] disorders documented in this encounter Care Teams Rustic Fence Builder Relationship Specialty Start Date End Date Magdalena Acosta MD [address] [place] [address] PCP - General Family Medicine 02/05/23 documented as of this encounter
--- OUTSIDE RECORDS SUMMARY | 2024-04-27 15:03 | XMS_ITS | Encounter Summary ---
Author Organization [facility] [place] [address] Care Team Providers Care Grief Counselor Name Role Phone Ashley Quirogan Cornelius ANURAG Primary Care Provider [phone] Encounter Details Date Type Department Care Team (Late st Contact Info) Description 11/02/2022 Orders [place] [address] Emily Lyons PA [facility] [place] [address] Aortic valve stenosis, etiology of cardiac valve [...] AM EDT Appointment H[place]ology [place] [address] 05/12/2024 10:00 AM EDT Office Visit [place]ology [place] [address] Markel Borjas MD [facility] [address] HEMATOLOGY AND ONCOLOGY [place], [place] [address] 03/01/2025 4:15 PM EDT Office Visit Dermatology at [place] [address] [facility] [place] [address] Marek Bonilla MD [address] [facility] [address] [place] [address] documented as of this encounter Visit Diagnoses Diagnosis Aortic valve stenosis, etiology of cardiac valve disease unspecified documented in this encounter Care Teams Grief Counselor Relationship Specialty Start Date End Date Deborah Quiroga, DATA WAREHOUSE MANAGER PCP - General Family Medicine 03/24/16 02/04/23 documented as of this encounter
--- OUTSIDE RECORDS SUMMARY | 2024-04-27 15:03 | XMS_ITS | Encounter Summary ---
Author Organization [facility] Address [facility] [place] [address] Care Team Providers Care Ag Equipment Field Service Technician Name Role Phone Ashley Quirogan [place] ANURAG Primary Care Provider [phone] Encounter Details Date Type Department Care Team (Late st Contact Info) Description 01/14/2023 Refill Dermatology at [address] [address] Lupe Connor RN Social [...] She would like the medication called into [address] in [facility]. Discussed with Dr. Bonilla and he has approved refill of the Doxycycline 50 mg take one capsule by mouth daily in the evenings dispense 30 capsules with 2 refills. Patient notified. documented in this encounter Plan of Treatment Upcoming Encounters Date Type Department Care Team (Late st Contact Info) Description 05/12/2024 9:00 AM EDT Appointment Hematology [place] [address] 05/12/2024 10:00 AM EDT Office Visit Hematology [place] [address] Markel Borjas MD [facility] [address] [place] [address] 03/01/2025 4:15 PM EDT Office Visit Dermatology at [place] [address] [facility] [address] [place] [address] Marek Bonilla MD [address] [address] [address] [place] [address] documented as of this encounter Visit Diagnoses Not on filedocumented in this encounter Care Teams Ag Equipment Field Service Technician Relationship Specialty Start Date End Date Deborah Quiroga APRN PCP - General Family Medicine 03/24/16 02/04/23 documented as of this encounter
--- OUTSIDE RECORDS SUMMARY | 2024-04-27 15:03 | XMS_ITS | Encounter Summary ---
Author Organization [facility] [place] [address] Care Team Providers Care Hand Roller Name Role Phone Deborah Quiroga APRN Primary Care Provider [phone] Reason for Referral * Consultation (Routine) - Closed Specialty Diagnoses / Procedures Referred By Crispin maxwell Referred To Contact Neurology Diagnoses Polyneuropathy Deborah Quiroga APRN [address] [facility] [address] [place] [address] [facility] [address] [place] [phone] Referral ID Status Reason Start Date Expiration Date V isits Requested Visits Authorized [id number] Closed Consult, Test & Treat 10/29/2022 10/29/2023 1 1 Encounter Details Date Type Department Care Team (Latest Contact Info) Description 10/29/2022 Transcribe Orders eDH Incoming Referrals [phone] Deborah Quiroga APRN [address] [facility] [address] [place] [address] Polyneuropathy (Primary Dx) Social History [...] AM EDT Appointment [place] [address] 05/12/2024 10:00 AM EDT Office Visit [place] [address] Markel Borjas MD [facility] [address] HEMATOLOGY [place] [address] 03/01/2025 4:15 PM EDT Office Visit Dermatology at [place] [address] [place] [address] Marek Bonilla MD [address] [place] [address] Scheduled Referrals Name Type Priority Associated Diagnoses Orde r Schedule Referral to Neurology Outpatient Referral Routine Polyneuropathy Ordered: 10/29/2022 documented as of this encounter Visit Diagnoses Diagnosis Polyneuropathy- Primary Unspecified hereditary and idiopathic peripheral neuropathy documented in this encounter Care Teams Hand Roller Relationship Specialty Start Date End Date Deborah Quiroga APRN PCP - General Family Medicine 03/24/16 02/04/23 documented as of this encounter
--- OUTSIDE RECORDS SUMMARY | 2024-04-27 15:03 | XMS_ITS | Encounter Summary ---
Author Organization [facility] [place] [address] Care Team Providers Care Special Crimes Investigator Name Role Phone Ashley Quirogazac Shields APRN Primary Care Provider [phone] Encounter Details Date Type Department Care Team [...] Appointment Hematology [place] [address] 05/12/2024 10:00 AM EDT Office Visit Hematology [place] [address] Markel Borjas MD [facility] [address] [place] [address] 03/01/2025 4:15 PM EDT Office Visit Dermatology at [place] [address] [facility] [place] [phone] Marek Bonilla MD [address] [facility] [place] [address] documented as of this encounter Visit Diagnoses Not on filedocumented in this encounter Care Teams Special Crimes Investigator Relationship Specialty Start Date End Date Deborah Quiroga APRN PCP - General Family Medicine 03/24/16 02/04/23 documented as of this encounter
--- OUTSIDE RECORDS SUMMARY | 2024-04-27 15:03 | XMS_ITS | Encounter Summary ---
Author Organization Formerly [facility] Address [facility] E[facility] [place] [address] Care Team Providers Care Genetic Engineer Name Role Phone Deborah Quiroga APRN Primary Care Provider [phone] Reason for Visit * Consultation (Routine) - Closed Specialty Diagnoses / Procedures Referred By Contkrystle t Referred To Contact Rheumatology Diagnoses Positive FRANCISCO (antinuclear antibody) Arthralgia, unspecified joint Sandy Wu APRN [address] [place] [address] [facility] Rheumatology [address] [place] [address] Referral ID Status Reason Start Date Expiration Date V isits Requested Visits Authorized [id number] Closed Consult, Test & Treat PCP Updated and/or Approved 01/01/2022 01/01/2023 6 6 Encounter Details Date Type Department Care Team (Latest Contact Info) Description 01/20/2022 10:00 AM EDT Office [place] [address] Raymond Loredo MD [facility] [place] [address] Rosacea; Raynaud's phenomenon without gangrene; [...] over radiocarpal or ulnocarpal joints. Hands: Normal slack line yarder and claw. SJC/TJC 0/0. Hips: Full motion, [...] AM EDT Appointment Hematology [place] [address] 05/12/2024 10:00 AM EDT Office Visit Hematology [place] [address] Markel Borjsa MD [facility] [address] HEMATOLOGY [place] [address] 03/01/2025 4:15 PM EDT Office Visit Dermatology at [address] [place] [address] Marek Bonilla MD [address], [place] [address] Scheduled Referrals Name Type Priority Associated Diagnoses [...] syndrome documented in this encounter Care Teams Genetic Engineer Relationship Specialty Start Date End Date Junaid, Deborah E, INSPECTOR GOVERNMENT PROPERTY PCP - General Family Medicine 03/24/16 02/04/23 documented as of this encounter
--- OUTSIDE RECORDS SUMMARY | 2024-04-27 15:03 | XMS_ITS | Encounter Summary ---
Author Organization [facility] [address] Care Team Providers Care Buckle Attacher Name Role Phone Magdalena Acosta MD Primary [...] EDT Appointment Hematology [place] [address] 05/12/2024 10:00 AM EDT Office Visit Hematology [place] [address] Markel Borjas MD [facility] [address] [place] [address] 03/01/2025 4:15 PM EDT Office Visit Dermatology at [place] [address] [facility] [place] [address] Marek Bonilla MD [address] [facility], [place] [address] documented as of this encounter Visit Diagnoses Not on filedocumented in this encounter Care Teams Buckle Attacher Relationship Specialty Start Date End Date Magdalena Acosta MD [address] [place] [address] PCP - General Family Medicine 02/05/23 documented as of this encounter
--- OUTSIDE RECORDS SUMMARY | 2024-04-27 15:03 | XMS_ITS | Encounter Summary ---
[place] [address] Care Team Providers Care Compensation And Benefits Analyst Name Role Phone Junaid Deborah Shields APRN Primary Care Provider [phone] Reason for Visit * Reason Comments Annual Exam Encounter Details Date Type Department Care Team (Late st Contact Info) Description 01/09/2022 3:15 PM EDT Office Visit Dermatology at [address] [address] Marek Bonilla MD [address] [facility], [address] DERMATOLOGY [place], [place] [phone] Rosacea Social History Tobacco Use Types Packs/Day [...] cutaneous and ocular 2. Previously told by munitions handler that she had corneal tears from her [...] refills. We will call this into her [facility] in [place] 3. Continue metronidazole 0.75% gel applying every [...] AM EDT Appointment [place]ology [place] [address] 05/12/2024 10:00 AM EDT Office Visit [place] [address] [facility] [address] [place] [address] 03/01/2025 4:15 PM EDT Office Visit Dermatology at [place] [address] [facility] [place] [address] Marek Bonilla MD [address] [facility], [place] [address] documented as of this encounter Visit Diagnoses Diagnosis Rosacea documented in this encounter Care Teams Compensation And Benefits Analyst Relationship Specialty Start Date End Date Deborah Quiroga APRN PCP - General Family Medicine 03/24/16 02/04/23 documented as of this encounter
--- OUTSIDE RECORDS SUMMARY | 2024-04-27 15:03 | XMS_ITS | Encounter Summary ---
Author Organization [facility] [address] Care Team Providers Care Lapel Padder Blindstitch Name Role Phone Ashley Quirogazac Shields APRN Primary Care Provider [phone] Encounter Details Date Type Department Care Team [...] Appointment Hematology [place] [address] 05/12/2024 10:00 AM EDT Office Visit [place]ematology [place] [address] Markel Borjas MD [facility] [place] [address] 03/01/2025 4:15 PM EDT Office Visit Dermatology at [place] [address] [facility] [place] [address] Marek Bonilla MD [address] [facility] [place] [address] documented as of this encounter Visit Diagnoses Not on filedocumented in this encounter Care Teams Lapel Padder Blindstitch Relationship Specialty Start Date End Date Deborah Quiroga APRN PCP - General Family Medicine 03/24/16 02/04/23 documented as of this encounter
--- OUTSIDE RECORDS SUMMARY | 2024-04-27 15:04 | XMS_ITS | Encounter Summary ---
Author Organization [facility] Address [facility] [place] [address] Care Team Providers Care Quality Control Microbiologist Name Role Phone Junaid Deborah Shields APRN Primary Care Provider [phone] Reason for Visit * Reason Comments Schedule Office Case Pain right leg Encounter Details Date Type Department Care Team (Late st Contact Info) Description 12/11/2016 9:00 AM EDT Office Visit Hematology [place] [address] Markel Borjas MD [facility] [address] [place] [address] Neutropenia, unspecified type Social History Tobacco Use [...] 12/11/2016 9:00 AM EDT Hematology Outpatient [facility] [...] TOUCH PREP, CLOT SECTION, CORE ??BIOPSY); [OSR# [id number], COLLECTED 06/23/2016, 19 SLIDES]: ?1. 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 Extremities: No edema. Labs: Hgb= 13 Puvx=562 ANC= 0.5 Imaging As above - reviewed [...] AM EDT Appointment Hematology [place] [address] 05/12/2024 10:00 AM EDT Office Visit Hematology [place] [address] Markel Borjas MD [facility] [address] [place] [address] 03/01/2025 4:15 PM EDT Office Visit Dermatology at [place] [address] [place] [address] Marek Bonilla MD [address] [facility] [place] [address] documented as of this encounter Results * [...] type documented in this encounter Care Teams Quality Control Microbiologist Relationship Specialty Start Date End Date Deborah Quiroga, SECOND RIGGER PCP - General Family Medicine 03/24/16 02/04/23 documented as of this encounter
--- OUTSIDE RECORDS SUMMARY | 2024-04-27 15:04 | XMS_ITS | Encounter Summary ---
Author Organization [facility] Address [facility] [place] [address] Care Team Providers Care Radio Station Audio Engineer Name Role Phone Deborah Quiroga APRN Primary Care Provider [phone] Encounter Details Date Type Department Care Team (Late st Contact Info) Description 12/04/2016 External Results [place] [address] Teresa Dodson RN Social History Tobacco Use [...] AM EDT Appointment [place] [address] 05/12/2024 10:00 AM EDT Office Visit [place] [address] Markel Borjas MD [facility] [address] [place] [address] 03/01/2025 4:15 PM EDT Office Visit Dermatology at [address] [phone] Marek Bonilla MD [address] [facility], [place] [address] documented as of this encounter Procedures Procedure Name Priority Date/Time Associated Diagnosis Comments CBC (WITH DIFF) Routine 12/03/2016 11:35 AM EDT COMPREHENSIVE METABOLIC PANEL Routine 12/03/2016 11:35 AM EDT documented in this encounter Results * (ABNORMAL) Comprehensive metabolic panel (non-fasting) (12/03/2016 11:35 AM EDT) Glucose 85([facility]) Blood Urea Nitrogen 11([facility]) Creatinine 0.93(Exte rnal Lab) Sodium 140(Exter nal Lab) Potassium 4.2(Exter nal Lab) Chloride 104(Exter nal Lab) Calcium 10.0(Exte rnal Lab) Protein, Total 8.1(Exter nal Lab) Albumin 3.5(Exter nal Lab) Bilirubin, Total 0.25(Exte rnal Lab) Alkaline Phosphatase 96([facility]) Aspartate Aminotransferase 18([facility]) Alanine Aminotransferase 21([facility]) Blood specimen (specimen) 12/03/2016 11:35 AM EDT Historical Provider CHEMISTRY ORDERAB LES * (ABNORMAL) CBC (with Diff) (12/03/2016 11:35 AM EDT) White Blood Cell 1.61(EXTER NAL/ABN) 4.4 - 10.8 Hemoglobin 13.0(Exter nal Lab) Hematocrit 39.8(Exter nal Lab) Platelet 248([facility]) Neutrophil Absolute (ANC) - Automated 0.5(FITNESS ASSISTANT AL/ABN) Blood specimen (specimen) 12/03/2016 11:35 AM EDT Historical Provider HEMATOLOGY ORDERA BLES documented in this encounter Visit Diagnoses Not on filedocumented in this encounter Care Teams Radio Station Audio Engineer Relationship Specialty Start Date End Date Deborah Quiroga, ANURAG PCP - General Family Medicine 03/24/16 02/04/23 documented as of this encounter
--- OUTSIDE RECORDS SUMMARY | 2024-04-27 15:04 | XMS_ITS | Encounter Summary ---
[place] [address] Care Team Providers Care Client Service Manager Name Role Phone JunaidDeborah APRN Primary Care Provider [phone] Reason for Visit * Reason Comments Follow-up Encounter Details Date Type Department Care Team (Late st Contact Info) Description 01/10/2021 4:30 PM EDT Office Visit Dermatology at [place] [address] [place] [address] Marek Bonilla MD [address] [facility] [address] A DERMATOLOGY [place], [place] [address] Rosacea Social History Tobacco Use Types Packs/Day [...] cutaneous and ocular 2. Previously told by financial intern that she had corneal tears from her [...] 3 refills. Will call this in her [facility] in [place] 3. Continue metronidazole 0.75% gel applying once [...] AM EDT Appointment Hematology [place] [address] 05/12/2024 10:00 AM EDT Office Visit Hematology [place] [address] Markel Borjas MD [facility] [address] HEMATOLOGY [place] [address] 03/01/2025 4:15 PM EDT Office Visit Dermatology at [place] [address] [facility] [place] [address] Marek Bonilla MD [address] [facility] [address], [place] [address] documented as of this encounter Visit Diagnoses Diagnosis Rosacea documented in this encounter Care Teams Client Service Manager Relationship Specialty Start Date End Date Deborah Quiroga, ANURAG PCP - General Family Medicine 03/24/16 02/04/23 documented as of this encounter
--- OUTSIDE RECORDS SUMMARY | 2024-04-27 15:04 | XMS_ITS | Encounter Summary ---
Author Organization [facility] [place] [address] Care Team Providers Care Hadoop Software Engineer Name Role Phone Ashley Quirogan Cornelius ANURAG Primary Care Provider [phone] Encounter Details Date Type Department Care Team (Late st Contact Info) Description 02/06/2020 Orders Only Hematology [place] [address] Markel Borjas MD [facility] [address] [place] [address] Neutropenia, unspecified type Social History Tobacco Use [...] EDT Appointment Hematology [place] [address] 05/12/2024 10:00 AM EDT Office Visit Hematology [place] [address] Markel Borjas MD [facility] [place] [address] 03/01/2025 4:15 PM EDT Office Visit Dermatology at [place] [address] [facility] [place] [address] Marek Bonilla MD [address], [address] [place] [address] documented as of this encounter Visit Diagnoses Diagnosis Neutropenia, unspecified type documented in this encounter Care Teams Hadoop Software Engineer Relationship Specialty Start Date End Date Deborah Quiroga APRN PCP - General Family Medicine 03/24/16 02/04/23 documented as of this encounter
--- OUTSIDE RECORDS SUMMARY | 2024-04-27 15:04 | XMS_ITS | Encounter Summary ---
[place] [address] Care Team Providers Care Skiver Box Toe Name Role Phone Ashley Quirogan Cornelius ANURAG Primary Care Provider [phone] Reason for Visit * Reason Onset Date Comments Medical Care Coordination 07/27/2017 Encounter Details Date Type Department Care Team (Late st Contact Info) Description 07/27/2017 Telephone Hematology [place] [address] Alexandrea [place] RN Medical Care Coordination Social [...] 07/27/2017 12:25 PM EST Message received from pocket secretary assembler: Injection/Infusion Referral Call placed to [facility] @ [phone] Spoke w/ PET COUNSELOR Services to be provided for pt are: CBC/CMP DONE Q6 MONTHS X2 STARTING NOVEMBER 2017 TECH confirmed they would provide services to pt - I CALLED PT, LM. Pt orders faxed to [phone] documented in this encounter Plan of Treatment Upcoming Encounters Date Type Department Care Team (Late st Contact Info) Description 05/12/2024 9:00 AM EDT Appointment Hematology [place] [address] 05/12/2024 10:00 AM EDT Office Visit Hematology [place] [address] Markel Borjas MD [facility] [address] [place] [address] 03/01/2025 4:15 PM EDT Office Visit Dermatology at [place] [address] [place] [address] Marek Bonilla MD [address] [place] [address] documented as of this encounter Visit Diagnoses Not on filedocumented in this encounter Care Teams Skiver Box Toe Relationship Specialty Start Date End Date Deborah Quiroga APRN PCP - General Family Medicine 03/24/16 02/04/23 documented as of this encounter
--- OUTSIDE RECORDS SUMMARY | 2024-04-27 15:04 | XMS_ITS | Encounter Summary ---
Author Organization [facility] Address [facility] [place] [address] Care Team Providers Care Supervisor Tellers Name Role Phone Deborah Quiroga ANURAG Primary Care Provider [phone] Encounter Details Date Type Department Care Team (Late st Contact Info) Description 06/18/2017 External Results H[place]ology [place] [address] Alexandrea [place]wood RN Neutropenia, unspecified type Social [...] AM EDT Appointment [place] [address] 05/12/2024 10:00 AM EDT Office Visit [place] [address] Markel Borjas MD [facility] [place] [address] 03/01/2025 4:15 PM EDT Office Visit Dermatology at [address] [address] Marek Bonilla MD [address], [place] [address] documented as of this encounter Procedures Procedure Name Priority Date/Time Associated Diagnosis Comments CBC (WITH DIFF) Routine 06/11/2017 1:19 PM EST Neutropenia, unspecified type COMPREHENSIVE METABOLIC PANEL Routine 06/11/2017 1:19 PM EST Neutropenia, unspecified type documented in this encounter Results * Comprehensive metabolic panel (non-fasting) (06/11/2017 1:19 PM EST) Pathologist [facility] Blood Urea Nitrogen 13 7 - 18 [...] PM EST) Pathologist [facility] White Blood Cell 2.28(EXTER NAL/ABN) 4.4 - [...] documented in this encounter Care Teams Supervisor Tellers Relationship Specialty Start Date End Date Deborah Quiroga APRN PCP - General Family Medicine 03/24/16 02/04/23 documented as of this encounter
--- OUTSIDE RECORDS SUMMARY | 2024-04-27 15:04 | XMS_ITS | Encounter Summary ---
Author Organization [facility] Address [facility] [place] [address] Care Team Providers Care Restaurant Bartender Name Role Phone Deborah Quiroga APRN Primary Care Provider [phone] Encounter Details Date Type Department Care Team (Latest Contact Info) Description 10/14/2016 - 10/14/2016 11:59 PM EDT Hospital Encounter Radiology Library at [facility] [place] [address] Alirio Esparza MD Pain Discharge Disposition: Home [...] AM EDT Appointment Hematology [place] [address] 05/12/2024 10:00 AM EDT Office Visit Hematology [place] [address] Markel Borjas MD [facility] [address] [place] [address] 03/01/2025 4:15 PM EDT Office Visit Dermatology at [place] [address] [facility] [place] [address] Marek Bonilla MD [address] [place] [address] documented as of this encounter Procedures Procedure Name Priority Date/Time Associated Diagnosis Comments FILM LIBRARY STORAGE ONLY DX CHEST Routine 10/14/2016 12:00 AM EDT Pain documented in this encounter Results * Film Library- Storage Only DX Chest (10/14/2016 12:00 AM EDT) Narrative [facility] - 10/14/2016 5:16 PM EDT This exam is for storage only and is auto-finalizing. Alirio Esparza MD IMG FILM LIBRARY OR DERABLES Performing Organization Address City/State/[facility] Co de Phone Number [place], [place] documented in this encounter Visit Diagnoses Diagnosis Pain Generalized pain documented in this encounter Care Teams Restaurant Bartender Relationship Specialty Start Date End Date Deborah Quiroga, LANGUAGE PATH PCP - General Family Medicine 03/24/16 02/04/23 documented as of this encounter
--- OUTSIDE RECORDS SUMMARY | 2024-04-27 15:04 | XMS_ITS | Encounter Summary ---
[place] [address] Care Team Providers Care Education Administrative Assistant Name Role Phone Junaid Deborah Shields APRN Primary Care Provider [phone] Reason for Visit * Reason Onset Date Comments Results 12/03/2016 Encounter Details Date Type Department Care Team (Late Contact Info) Description 12/03/2016 Telephone Hematology [place] [address] Yudith Valentine RN Results Social [...] RN received call from Maddy at [facility] reporting critical WBC at 1.61, and ANC of 0.5. She will fax the full results to this office for credit review analyst notified DR Borjas of above results documented in this encounter Plan of Treatment Upcoming Encounters Date Type Department Care Team (Late st Contact Info) Description 05/12/2024 9:00 AM EDT Appointment Hematology [place] [address] 05/12/2024 10:00 AM EDT Office Visit Hematology [place] [address] Markel Borjas MD [facility] [address] [place] [address] 03/01/2025 4:15 PM EDT Office Visit Dermatology at [place] [address] [facility] [place] [address] Marek Bonilla MD [address] [place] [address] documented as of this encounter Visit Diagnoses Not on filedocumented in this encounter Care Teams Education Administrative Assistant Relationship Specialty Start Date End Date Deborah Quiroga APRN PCP - General Family Medicine 03/24/16 02/04/23 documented as of this encounter
--- OUTSIDE RECORDS SUMMARY | 2024-04-27 15:04 | XMS_ITS | Encounter Summary ---
Author Organization [facility] Address [facility] [place] [address] Care Team Providers Care Casino Duty Manager Name Role Phone Deborah Quiroga ANURAG Primary Care Provider [phone] Encounter Details Date Type Department Care Team (Late Contact Info) Description 07/21/2017 Orders Only Hematology [place] [phone] Alexandrea Greenwood RN Other neutropenia Social History [...] EDT Appointment Hematology [place] [address] 05/12/2024 10:00 AM EDT Office Visit Hematology [place] [address] Markel Borjas MD [facility] [place] [address] 03/01/2025 4:15 PM EDT Office Visit Dermatology at [address] [address] Marek Bonilla MD [address], [place] [address] documented as of this encounter Visit Diagnoses Diagnosis Other neutropenia documented in this encounter Care Teams Casino Duty Manager Relationship Specialty Start Date End Date Deborah Quiroga APRN PCP - General Family Medicine 03/24/16 02/04/23 documented as of this encounter
--- OUTSIDE RECORDS SUMMARY | 2024-04-27 15:04 | XMS_ITS | Encounter Summary ---
Author Organization [facility] [place] [address] Care Team Providers Care Analytical Manager Name Role Phone Deborah Quiroga APRN Primary Care Provider [phone] Encounter Details Date Type Department Care Team (Late st Contact Info) Description 06/05/2021 Interpretation Only [address] [address] Deborah Quiroga APRN [address] [phone] Social History Tobacco Use Types Packs/Day Years [...] AM EDT Appointment H[place] [address] 05/12/2024 10:00 AM EDT Office Visit [place] [address] Markel Borjas MD [facility] [address] HEMATOLOGY [place] [address] 03/01/2025 4:15 PM EDT Office Visit Dermatology at [place] [address] [place] [phone] Marek Bonilla MD [address], [place] [address] documented as of this encounter Procedures Procedure Name Priority Date/Time Associated Diagnosis Comments MAMMO SCREENING CAD BILATERAL Routine 06/05/2021 11:42 AM EDT documented in this encounter Results * Mammo Screening Cad Bilateral (06/05/2021 11:42 AM EDT) PT CLASS O DH RAD ADMITDTTM DH RAD PT DH RAD INFO [id number]^EV ERETT^DEBORAH^E DH RAD EXAM DESC MADDSC^SCREEN MAMMO [...] have questions please contact the health career development consultant that requested your imaging first. ? Electronically signed by: Rocael Villatoro MD, [facility] ([phone]), at 06/05/2021 1:27 PM Narrative 06/05/2021 1:27 [...] who have questions please contactthe health career development consultant that requested your imaging first. Electronically signed by: Rocael Villatoro MD, [facility]([phone]), at 06/05/2021 1:27 PM Deborah Quiroga APRN IMG MAMMO ORDERABLE S documented in this encounter Visit Diagnoses Not on filedocumented in this encounter Care Teams Analytical Manager Relationship Specialty Start Date End Date Deborah Quiroga APRN PCP - General Family Medicine 03/24/16 02/04/23 documented as of this encounter
--- OUTSIDE RECORDS SUMMARY | 2024-04-27 15:04 | XMS_ITS | Encounter Summary ---
Author Organization [facility] Address [facility] [place] [address] Care Team Providers Care Reimbursement Specialist Name Role Phone Ashley Quirogan Cornelius ANURAG Primary Care Provider [phone] Encounter Details Date Type Department Care Team (Late st Contact Info) Description 03/04/2020 External Results Hematology [place] [phone] TherBhumi villela Social History Tobacco Use Types [...] AM EDT Appointment [place]ematology [place] [address] 05/12/2024 10:00 AM EDT Office Visit [place]ematology [place] [address] Markel Borjas MD [facility] [address] HEMATOLOGY [place] [address] 03/01/2025 4:15 PM EDT Office Visit Dermatology at [address] [phone] Marek Bonilla MD [address], [place] [address] documented as of this encounter Procedures Procedure [...] Provider HEMATOLOGY ORDERA BLES Performing Organization Address City/State/[facility] Co de Phone Number EXTERNAL LAB documented in this encounter Visit Diagnoses Not on filedocumented in this encounter Care Teams Reimbursement Specialist Relationship Specialty Start Date End Date Deborah Quiroga, VISCERA WASHER PCP - General Family Medicine 03/24/16 02/04/23 documented as of this encounter
--- OUTSIDE RECORDS SUMMARY | 2024-04-27 15:04 | XMS_ITS | Encounter Summary ---
Author Organization [facility] [place] [address] Care Team Providers Care Medical Billing Assistant Name Role Phone Deborah Quiroga ANURAG Primary Care Provider [phone] Encounter Details Date Type Department Care Team (Late st Contact Info) Description 11/11/2020 Refill Dermatology at [address] [address] Taylor Malone, CONVEYOR LOADER Social History Tobacco Use Types Packs/Day [...] AM EDT Appointment Hematology [place] [address] 05/12/2024 10:00 AM EDT Office Visit [place]ematology [place] [address] Markel Borjas MD [facility] [place] [address] 03/01/2025 4:15 PM EDT Office Visit Dermatology at [address] [address] Marek Bonilla MD [address], [place] [address] documented as of this encounter Visit Diagnoses Not on filedocumented in this encounter Care Teams Medical Billing Assistant Relationship Specialty Start Date End Date Deborah Quiroga APRN PCP - General Family Medicine 03/24/16 02/04/23 documented as of this encounter
--- OUTSIDE RECORDS SUMMARY | 2024-04-27 15:04 | XMS_ITS | Encounter Summary ---
Author Organization [facility] Address [facility] [place] [address] Care Team Providers Care Change Advisor Name Role Phone Deborah Quiroga APRN Primary Care Provider [phone] Encounter Details Date Type Department Care Team (Late st Contact Info) Description 03/01/2020 11:30 AM EDT Office Visit Hematology [place] [phone] Patrick Borjas MD [facility] [address] [place] [address] Neutropenia, unspecified type Social History Tobacco Use [...] 03/01/2020 11:30 AM EDT Hematology Outpatient Clinic [facility] Hematology Outpatient Consult Note CC: [...] TOUCH PREP, CLOT SECTION, CORE ??BIOPSY); [OSR# [id number], COLLECTED 06/23/2016, 19 SLIDES]: ?1. 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 Extremities: No edema. Labs: Hgb= 12.4 Xzfw=711 ANC= 2.5 Imaging As above - reviewed [...] Hematology [place] [address] 05/12/2024 10:00 AM EDT Office Visit Hematology [place] [address] Patrick Borjas MD [facility] [address] [place] [address] 03/01/2025 4:15 PM EDT Office Visit Dermatology at [place] [address] [place] [address] Marek Bonilla MD [address], [address] A DERMATOLOGY [place], [place] [address] documented as of this encounter Visit Diagnoses Diagnosis Neutropenia, unspecified type documented in this encounter Care Teams Change Advisor Relationship Specialty Start Date End Date Deborah Quiroga APRN PCP - General Family Medicine 03/24/16 02/04/23 documented as of this encounter
--- OUTSIDE RECORDS SUMMARY | 2024-04-27 15:04 | XMS_ITS | Encounter Summary ---
Author Organization [facility] Erika lópez[place]yl[place] [address] Care Team Providers Care Chain Saw Driver Name Role Phone Deborah Quiroga ANURAG Primary Care Provider [phone] Encounter Details Date Type Department Care Team (Late st Contact Info) Description 01/13/2021 Refill Dermatology at [address] [address] Taylor Malone, CASTING MACHINE OPERATOR Social History Tobacco Use Types Packs/Day [...] AM EDT Appointment Hematology [place] [address] 05/12/2024 10:00 AM EDT Office Visit [place]ematology [place] [address] Markel Borjas MD [facility] HEMATOLOGY [place] [address] 03/01/2025 4:15 PM EDT Office Visit Dermatology at [address] [address] Marek Bonilla MD [address], [place] [address] documented as of this encounter Visit Diagnoses Not on filedocumented in this encounter Care Teams Chain Saw Driver Relationship Specialty Start Date End Date Deborah Quiroga APRN PCP - General Family Medicine 03/24/16 02/04/23 documented as of this encounter
--- OUTSIDE RECORDS SUMMARY | 2024-04-27 15:04 | XMS_ITS | Encounter Summary ---
Author Organization [facility] Address [facility] [place] [address] Care Team Providers Care Wheat Farmer Name Role Phone Deborah Quiroga APRN Primary Care Provider [phone] Encounter Details Date Type Department Care Team (Late st Contact Info) Description 06/18/2017 11:00 AM EST Office Visit Hematology [place] [address] Markel Borjas MD [facility] [address] [place] [address] Neutropenia, unspecified type Social History Tobacco Use [...] 06/18/2017 11:00 AM EST Hematology Outpatient Clinic [facility] Hematology Outpatient Consult Note CC: [...] TOUCH PREP, CLOT SECTION, CORE ??BIOPSY); [OSR# [id number], COLLECTED 06/23/2016, 19 SLIDES]: ?1. ??Normocellular marrow [...] a clonal lymphoproliferative or myeloproliferative disorder (OSR# [id number]) Chromosome analysis on the marrow aspirate revealed [...] working the same job and participating in [employer] patients. Past Medical/Surgical History: 1. Leukopenia -element of neutropenia, as noted above 2. Aortic Stenosis -severe -AVR surgery 3. Hypercholesterolemia 4. Depression 5. Hypertension 6. 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 Extremities: No edema. Labs: Hgb= 13 Irlx=049 ANC= 0.6 Imaging As above - reviewed [...] AM EDT Appointment H[place] [address] 05/12/2024 10:00 AM EDT Office Visit [place]ematology [place] [address] Markel Borjas MD [facility] [address] [place] [address] 03/01/2025 4:15 PM EDT Office Visit Dermatology at [place] [address] [place] [address] Marek Bonilla MD [address], [place] [address] documented as of this encounter Visit Diagnoses Diagnosis Neutropenia, unspecified type documented in this encounter Care Teams Wheat Farmer Relationship Specialty Start Date End Date Deborah Quiroga APRN PCP - General Family Medicine 03/24/16 02/04/23 documented as of this encounter
--- OUTSIDE RECORDS SUMMARY | 2024-04-27 15:04 | XMS_ITS | Encounter Summary ---
[place] [address] Care Team Providers Care Cco & President Name Role Phone Junaid, Deborah Shields APRN Primary Care Provider [phone] Encounter Details Date Type Department Care Team (Late st Contact Info) Description 10/20/2016 11:20 AM EDT Office [place] [address] Alirio Esparza MD S/P AVR Social History [...] all of her postoperative tests done at [facility]. Her echo shows a well-seated valve. Her EF, for some reason, was read as in the 45% to 50% range. She had a normal EF to start. I think that will need to be repeated at [facility]. She has no perivalve leak. Her [...] should continue to see Dr. 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 cc: Dr. Burrell documented in this encounter Plan of Treatment Upcoming Encounters Date Type Department Care Team (Late st Contact Info) Description 05/12/2024 9:00 AM EDT Appointment [place] [address] 05/12/2024 10:00 AM EDT Office Visit [place] [address] Markel Borjas MD [facility] [place] [address] 03/01/2025 4:15 PM EDT Office Visit Dermatology at [place] [address] [place] [address] Marek Bonilla MD [address], [place] [address] documented as of this encounter Visit Diagnoses Diagnosis S/P AVR Heart valve replaced by other means documented in this encounter Care Teams Cco & President Relationship Specialty Start Date End Date Deborah Quiroga APRN PCP - General Family Medicine 03/24/16 02/04/23 documented as of this encounter
--- OUTSIDE RECORDS SUMMARY | 2024-04-27 15:04 | XMS_ITS | Encounter Summary ---
Author Organization [facility] [place] [address] Care Team Providers Care Analyst Competitive Intelligence Name Role Phone Deborah Quiroga APRN Primary Care Provider [phone] Encounter Details Date Type Department Care Team (Late st Contact Info) Description 06/05/2021 Interpretation Only [address] [address] Deborah Quiroga APRN [address] [phone] Social History Tobacco Use Types Packs/Day Years [...] AM EDT Appointment Hematology [place] [address] 05/12/2024 10:00 AM EDT Office Visit [place]ematology [place] [address] Markel Borjas MD [facility] [address] [place]AT[place] [address] 03/01/2025 4:15 PM EDT Office Visit Dermatology at [place] [address] [place] [address] Marek Bonilla MD [address], [place] [address] documented as of this encounter Procedures Procedure Name Priority Date/Time Associated Diagnosis Comments MAMMO SCREENING CAD AND CATRACHITO BILATERAL Routine 06/05/2021 11:42 AM EDT documented in this encounter Results * Mammo Screening Cad and Catrachito Bilateral (06/05/2021 11:42 AM EDT) PT CLASS O DH RAD ADMITDTTM DH RAD PT DH RAD INFO [id number]^EVERET T^DEBORAH^E DH RAD EXAM DESC MADDSCTO^BREAST SCREEN [...] questions please contact the health child care that requested your imaging first. ? Electronically signed by: Rocael Villatoro MD, [facility] ([phone]), at 06/05/2021 1:27 PM Narrative 06/05/2021 1:27 [...] have questions please contactthe health child care that requested your imaging first. Electronically signed by: Rocael Villatoro MD, [facility]([phone]), at 06/05/2021 1:27 PM Deborah Quiroga APRN IMG MAMMO ORDERABLE S documented in this encounter Visit Diagnoses Not on filedocumented in this encounter Care Teams Analyst Competitive Intelligence Relationship Specialty Start Date End Date Deborah Quiroga APRN PCP - General Family Medicine 03/24/16 02/04/23 documented as of this encounter
--- OUTSIDE RECORDS SUMMARY | 2024-04-27 15:04 | XMS_ITS | Encounter Summary ---
[place] [address] Care Team Providers Care Ndt Inspector Name Role Phone Deborah Quiroga ANURAG Primary Care Provider [phone] Encounter Details Date Type Department Care Team (Late st Contact Info) Description 02/07/2020 Telephone Hematology [place] [address] Ellen Rios RN Social History [...] 02/07/2020 12:59 PM EDT Message received from litigation secretary: Injection/Infusion Referral Services to be provided for pt are: CBC only at [facility]- Pt will go by 02/27 Orders faxed to [phone]). Spoke with pt. She will call [facility] directly to schedule a time that works for her. documented in this encounter Plan of Treatment Upcoming Encounters Date Type Department Care Team (Late Contact Info) Description 05/12/2024 9:00 AM EDT Appointment Hematology [place] [address] 05/12/2024 10:00 AM EDT Office Visit Hematology [place] [address] Markel Borjas MD [facility] [address] [place] [address] 03/01/2025 4:15 PM EDT Office Visit Dermatology at [place] [address] [place] [address] Marek Bonilla MD [address], [place] [address] documented as of this encounter Visit Diagnoses Not on filedocumented in this encounter Care Teams Ndt Inspector Relationship Specialty Start Date End Date Deborah Quiroga APRN PCP - General Family Medicine 03/24/16 02/04/23 documented as of this encounter
--- OUTSIDE RECORDS SUMMARY | 2024-04-27 15:04 | XMS_ITS | Encounter Summary ---
Author Organization [facility] [place] [address] Care Team Providers Care Retail Sales Specialist Name Role Phone Ahsley Quirogazac Shields APRN Primary Care Provider [phone] Reason for Referral * Consultation (Routine) - Specialty Diagnoses / Procedures Referred By Contact Referred To Contact Cardiac Rehabilitation Diagnoses S/P AVR Alirio Esparza MD [facility] [place] [address] Cardiac Rehab, [address] [place] [address] Referral ID Status Reason Start Date Expiration Date V isits Requested Visits Authorized [id number] Consult, Test & Treat 09/25/2016 03/24/2017 36 36 Reason for Visit * Auth/Cert Specialty Diagnoses / Procedures Referred By Contkrystle t Referred To Contact Diagnoses Aortic stenosis Procedures PRO REPLACE AORT VALV, PROSTH VALV @REPLACE AORTIC VALVE, OPEN, W\CPB, W\PROSTHETIC VALVE (WRVU 41.32) Referral ID Status Reason Start Date Expiration Date Visits Re quested Visits Authorized [id number] 1 1 Encounter Details Date Type Department Care Team (Latest Contact Info) Description 09/21/2016 6:08 AM EST - 09/25/2016 4:33 PM EST Hospital Encounter Intermediate [place] [id number] Alirio Esparza MD Aortic valve stenosis, unspecified [...] Patient Age: 61 y.o. Birthdate: 1955 Language: Cymro Race: White Ethnicity: Not nor Admit Date: 09/21/2016 Discharge Date: 09/25/2016 Attending Physician: Alirio Esparza MD Follow-up Recommendations for Providers: Please continue routine management of cardiovascular risk factors including blood pressure, lipids,glucose, etc. Please note any changes to medications. Patient to follow-up with PCP, Deborah Quiroga APRN, in 1-2 weeks. Patient to follow-up with Industrial Roof Plumber, Dr. Antelmo Burrell, in two weeks. Patient to follow-up with Cardiac Surgery, Dr. Alirio Esparza, to be scheduled for before 10/19/2016, with CXR, EKG, and Echo. Inpatient Provider Contact Information: [facility] Section of Cardiac Surgery [facility] [phone] FAX [phone] Discharge Diagnoses (Hospital Problems) Primary Diagnoses: Secondary [...] 41.32) performed by Alirio Esparza MD at [facility] ??? Pro aortoplas for supravalv sten N/A 09/21/2016 @AORTOPLASTY FOR SUPRAVALVULAR STENOSIS (WRVU 29.33) performed by Alirio Esparza MD at [facility] Prior To Admission Medications [...] Hospital Course: Purnima Thacker was admitted to [facility] on 09/21/2016 via the Same [...] Alirio Esparza and/or the Cardiac Surgery Physician Elementary Supervisor Team may be reached at . Antibiotic prophylaxis: You will need to take antibiotics prior to many invasive tests and treatments, such as dental cleaning, which should be done every 6 months. Your primary care physician or your dentist can prescribe this medication. Please refer to the card with the [place] Heart [employer] Guidelines for more information. You have been provided with 3 copies of this card. Keep one for your self. Give one to your primary care physician and one to your dentist. Please refer to the [place] Heart [employer] Guidelines for more information. Good [...] Dr. Alirio Jones. You may use a [place] Track or treadmill but avoid any pulling [...] should resume a low fat, low cholesterol, [place] Heart Association Diet. Driving: No driving until [...] Phase [address] [facility]. The patient agrees to a referral to this program. The referral will be sent at discharge and the patient should be contacted by the program within 1- 2 weeks from discharge. Future Appointments and Orders Future Appointments Provider Department Dept Phone 11/20/2016 11:30 AM Markel Borjas MD [facility] [phone] Future Orders Complete By Expires Echocardiogram Transthoracic([facility]) [PJC589 Custom] 10/18/2016 (Approximate) 09/18/2017 Process Instructions: If the Echocardiogram is to be PERFORMED in a location other than [facility]--STOP and order [id number], Echocardiogram South/External. Scheduling Instructions: Questions: Is a Bubble Study requested?: No Does the patient have Congenital Heart Disease?: No Does patient require sedation?: None GA rationale: Should this service be billed to the research sponsor?: EKG 12 Lead [EKG1 Custom] 10/18/2016 (Approximate) 09/25/2017 Process Instructions: Scheduling Instructions: Questions: Which location will this be performed?: [facility] Is a rhythm strip needed?: No If EKG Reason is Pre-op Evaluation, indicate diagnosis for surgery.: Should this service be billed to the research sponsor?: XR Chest PA & Lateral (Generic) [[id number] Custom] 10/18/2016 (Approximate) 09/25/2017 Process Instructions: Scheduling Instructions: Questions: Where will study be performed?: [facility]- Radiology Portable exam?: No Reason for exam and clinical history: s/p AVReplacement, patch annuloplasty 1 month f/u Other pertinent information: Stat read required?: Date of injury if applicable: Requested Time: Referral to Cardiac Rehab [[id number] Custom] As directed Process Instructions: If no progress note charted, please enter Clinical details in comments. Scheduling Instructions: Questions: My question or request is: s/p AVR. Cardiac rehab at [facility] Referral to Home Health - at DISCHARGE [MQI1634 CPT(R)] As directed Process Instructions: Scheduling Instructions: Comments: DOCUMENTATION FOR VNA SERVICES (INCLUDING THOSE PATIENTS WITH MEDICARE COVERAGE REQUIRING HOME VNA SERVICES AND/OR HOSPICE SERVICES) PATIENT'S LOCATION: Purnima Magalie Kirstie [address] [place] [phone] (home) No relevant phone numbers on file. Interior Specialist's Name: self In discussion with the attending physician, it is certified that this patient is under their care and that they, or a Nurse Practitioner, or Physician Elementary Supervisor who is working directly with them, [...] for services as follows: HOME HEALTH AGENCY: [facility] PHONE: [phone] FAX: [phone] RN orders: Cardiopulmonary assessment, incisional assessment, assess [...] issues please call the Cardiac SurgeryOffice at [phone] FOR MEDICARE ONLY: In discussion with the [...] 09/30/16 Signed: Crispin Aranda PA-C 09/25/2016 [facility] Section of Cardiac Surgery [facility] [address] FAX [phone] Date: 09/25/2016 CC: ANURAG Alford Caryn E, APRN [address] [place] [address] documented in this encounter Discharge Instructions * [...] Alirio Esparza and/or the Cardiac Surgery Physician Elementary Supervisor Team may be reached at . Antibiotic prophylaxis: You will need to take antibiotics prior to many invasive tests and treatments, such as dental cleaning, which should be done every 6 months. Your primary care physician or your dentist can prescribe this medication. Please refer to the card with the [place] Heart [employer] Guidelines for more information. You have been provided with 3 copies of this card. Keep one for your self. Give one to your primary care physician and one to your dentist. Please refer to the [place] Heart [employer] Guidelines for more information. Good [...] Dr. Alirio Jones. You may use a [place] Track or treadmill but avoid any pulling [...] should resume a low fat, low cholesterol, [place] Heart [employer] Diet. Driving: No driving until [...] Phase [address] [facility]. The patient agrees to a referral [...] PM EST Cardiac Surgery Progress Note: ID: [id number] S/p AVR, patch aortoplasty POD#2. PMH of [...] Gas) No results found for: PHART, PO2ART, DVJ5GET Assessment/Plan: TPW out this am. (+) BM. [...] Signed: Crispin Aranda PA-C 09/24/2016 Team pager: [phone]; [phone] after 5pm [facility] Section of Cardiac Surgery * Leonor Henson, DRYWALL SANDER - 09/23/2016 10:48 AM EST Cardiac Surgery Progress Note: ID: [id number] s/p AVR, patch aortoplasty POD#2. PMH of [...] Gas) No results found for: PHART, PO2ART, HTJ2TSM Assessment/Plan: s/p AVR, patch aortoplasty POD#2. PMH of Neutropenia, HLD, HTN, Depression, obesity, . Transferred from [facility] yesterday and doing well. Pathway. Will [...] Surgeon on rounds. Signed: Leonor Henson APRN [facility] Section of Cardiac Surgery Date: 09/23/2016 * Nico Palacios PA - 09/22/2016 9:56 AM EST Cardiac Surgery Progress Note: ID: [id number] s/p AVR, patch aortoplasty POD#1. PMH of [...] NT, ND, soft. Ext: Moves all extremities. [place], well perfused. Incisions: C/D/I Tubes/Lines/Drains: PIV, richi, [...] Attending Surgeon on rounds. Signed: EKATERINA KIM [facility] Section of Cardiac Surgery Date: [...] left pleural effusion. T/L/D Al ETT CVL [place] CT Pacing wires ASSESSMENT, MANAGEMENT, and DECISION [...] MD - 09/21/2016 7:10 AM EST Mrs. Thackre is being sent for consideration of AVR [...] with outpatient services Lalitha Cohen SPTA Pager: [phone] Inpatient Physical Therapy Patient status, treatment interventions, and goals discussed with student. I am in agreement with all details and associated flowsheet rows as documented and was present for all aspects of the patient treatment session. Nerykatrina Jaramillo, [facility] Pager [phone] Problem: Acute Rehab Services Goal & Intervention Plan Goal: Bed Mobility Goal Stand Alone Therapy Goal Outcome: Ongoing (Interventions Implemented as Appropriate) 09/22/16 16109/25/16 09 Bed Mobility Goal Bed Mobility Goal, Time to Achieve 4 days -- Bed Mobility Goal, Activity Type scoot/bridge;supine to sit/sit to supine -- Bed Mobility Goal, [place] Level independent -- Bed Mobility Goal, Additional [...] Achieve 4 days -- Gait Training Goal, [place] Level independent -- Gait Training Goal, Distance [...] with home health Lalitha Cohen [facility] Pager: [phone] Inpatient Physical Therapy Patient status, treatment interventions, and goals discussed with student. I am in agreement with all details and associated flowsheet rows as documented and was present for all aspects of the patient treatment session. Nery Jaramillo, [facility] Pager [phone] Problem: Acute Rehab Services Goal & Intervention Plan Goal: Bed Mobility Goal Stand Alone Therapy Goal Outcome: Ongoing (Interventions Implemented as Appropriate) 09/22/16 16109/23/16 1412 Bed Mobility Goal Bed Mobility Goal, Time to Achieve 4 days -- Bed Mobility Goal, Activity Type scoot/bridge;supine to sit/sit to supine -- Bed Mobility Goal, [place] Level independent -- Bed Mobility Goal, Additional [...] Achieve 4 days -- Gait Training Goal, [place] Level independent -- Gait Training Goal, Distance [...] days -- Transfer Training Goal, Activity Type vmz-mw-qctdo/zaiss-sa-rfu;yaw-pf-iwwwr/ejifw-ox-kyf -- Transfer Train Goal, [place] Level independent -- Transfer Training Goal, Additional Goal abides sternal precautions -- Transfer Training Goal, Outcome -- goal met * Consult Note - Jana Crenshaw RN - 09/23/2016 9:41 AM EST [facility] [place] [place] CARDIAC REHABILITATION Purnima Thacker was seen today regarding participation in the outpatient Phase [address] [facility]. The patient agrees to a referral [...] Another Service: (cardiac rehab) NICOLE HERNANDEZ, PT Pager:[phone] Inpatient Physical Therapy Problem: Acute Rehab Services Goal & Intervention Plan Goal: Bed Mobility Goal Stand Alone Therapy Goal Outcome: Ongoing (Interventions Implemented as Appropriate) 09/22/16 1611 Bed Mobility Goal Bed Mobility Goal, Time to Achieve 4 days Bed Mobility Goal, Activity Type scoot/bridge;supine to sit/sit to supine Bed Mobility Goal, [place] Level independent Bed Mobility Goal, Additional Goal able to abide sternal precautions during transfers Goal: Gait Training Goal Stand Alone Therapy Goal Outcome: Ongoing (Interventions Implemented as Appropriate) 09/22/16 1611 Gait Training Goal Gait Training Goal, Date Established 09/22/16 Gait Training Goal, Time to Achieve 4 days Gait Training Goal, [place] Level independent Gait Training Goal, Distance to Achieve ascend and descends 2 steps independently Goal: Goal Transfer Training Stand Alone Therapy Goal Outcome: Ongoing (Interventions Implemented as Appropriate) 09/22/16 1611 Goal Transfer Training Transfer Training Goal, Time to Achieve 4 days Transfer Training Goal, Activity Type rgh-ij-xfwvo/eodmy-wu-acx;mbc-rw-jdpzs/kcnwe-cp-gsp Transfer Train Goal, [place] Level independent Transfer Training Goal, Additional Goal [...] of completing AD's at home, chooses her rbcgzs-xx-ddl, Martha Thacker (home) for her [facility], 2nd choice in friend, Nitesh Leroy [place], [place] Current Coping/Education/Information Needs: patient sitting up [...] who live close by, [place], and her itksbl-aw-bbq Martha Thacker who she has chosen to be her DPOAH. Also has a friend Nitesh Leroy who lives in [place], [place], also her DPOAH choice. Behavioral Health History: none on file in [facility] Substance Use/Abuse: none on file in [facility] Other Pertinent/Service Specific Information: none Health/Prescription Coverage: Primary Insurance: [employer] Secondary Insurance: none Prescription Coverage: yes, per patient no issues Preferred Pharmacy: ?? Other: none Primary Care Provider: Deborah Quiroga, DRYWALL SANDER [phone] Patient/Caregiver Goals of Treatment: per medical team recommendations at discharge for CT surgery Potential Needs for Transition of Care: Rehab/SNF: TBD Home Health: TBD DME: no Dialysis: no Community Resources: non3 Transportation: ride home with a friend Other: none Anticipated Barriers to Discharge/Special Considerations: none anticipated at this time Plan: patient will need VNA services at discharge. The patient/pharmacy sales representative has been provided a list of Home Health Agencies/DME vendors which servetheir preferred geographic area. A letter describing our affiliations was reviewed with them and they were educated about their right to choose where referrals are placed. Patient requests referral to: [facility] [email or web address] PHONE: [phone] FAX: [phone] Expected date of discharge: Fri/Sat? CM called VNA to confirm referral, talked with VALDO Bunn/intake who stated she was familiar w/patient & would monitor her progress through curaspan. Referral routed to the Line Haul Owner Operator for matching with agency/vendor and to provide any required information. A member of the Care Management team will continue to monitor progress, follow for continuity of care and assist with transition of care planning. Amanda Moreno RN Pager: [phone] * Op Note - Ailrio Esparza MD - 09/21/2016 12:53 PM EST 09/23/2016 Purnima Thacker 1955 [id number] Preoperative Diagnosis: Symptomatic aortic stenosis Postoperative Diagnosis: Symptomatic aortic stenosis Procedure: Aortic valve replacement: Bovine Pericardial 25 mm Surgeon: Alirio Esparza M.D. Elementary Supervisor: Philip BALL Anesthesia: General endotracheal anesthesia [...] Operative Note Patient Name: Purnima Thacker : [id number] MR#: [id number] Case Date: 09/21/2016 Surgeon: Surgeon(s) and Role: * Alirio Esparza MD - Primary * Nico Palacios PA - Physician Elementary Supervisor Preoperative diagnosis: Postoperative diagnosis: Procedure(s) (LRB): [...] AM EDT Appointment Hematology [place] [address] 05/12/2024 10:00 AM EDT Office Visit Hematology [place] [address] Markel Borjas MD [facility] [address] [place] [address] 03/01/2025 4:15 PM EDT Office Visit Dermatology at [address] [place] [address] Marek Bonilla MD [address], [place] [address] Scheduled Orders Name Type Priority Associated Diagnoses [...] IMPLANTABLE DEVICES SCAN 09/26/2016 12:00 AM EST TALENT MANAGEMENT MANAGER SCAN 09/26/2016 12:00 AM EST POTASSIUM [...] SCAN EXT O RDR/RSLT * SCAN DOC: TALENT MANAGEMENT MANAGER (09/26/2016 12:00 AM EST) Anatomical Region [...] CHEMISTRY ORDERABLE S [facility] [place] [address] * (ABNORMAL) Differential, Automated (09/24/2016 9:56 AM EST) Neutrophil % 76.8 % [facility] Neutrophil Absolute 7.79(H) 1.70 - 6.10 x10(3)/mc L [facility] Lymph % 11.1 % [facility] Lymphocytes Abs 1.1 0.9 - 3.2 x10(3)/mc L [facility] Monocyte % 8.5 % [facility] Monocyte Abs 0.9 0.3 - 0.9 x10(3)/mc L [facility] Eos % 0.5 % [facility] Eosinophils Abs 0.0 0.0 - 0.4 x10(3)/[facility] Basophil % 0.2 % [facility] Baso Absolute 0.0 0.0 - 0.1 x10(3)/[facility] LABORATORY Immature Gran % 2.90 % [facility] Comment: Immature granulocytes(IG's)percentage and absolute count will include metamyelocytes, myelocytes, and promyelocytes. Blood smears from CBCs yielding IG's will be scanned manually for concordance. If this scan disagrees with the automated IG or if promyelocytes are noted, a manual differential will be performed. Immature Gran Absolute 0.29(H) 0.00 - 0.04 x10(3)/[facility] LAB[facility] Blood specimen (specimen) 09/24/2016 9:56 AM EST 09/24/2016 10:04 AM EST Narrative Resulting Agency Comment Spec In Lab Alirio Esparza MD HEMATOLOGY ORDERABL ES [facility] [place] [address] * (ABNORMAL) Hemogram (09/24/2016 9:56 AM EST) White Blood Cell 10.1(H) 4.0 - 9.5 x10(3)/[facility] LAB[facility]AT[facility] Red Blood Cell 2.87(L) 4.00 - 5.21 x10(6)/[facility] LAB[facility]ORY Hemoglobin 9.4(L) 11.7 - 15.5 gm/dL [...] Standard Deviation 45.0 37.0 - 46.[address] [facility] RDW coefficient of variation 12.6 11.5 - 14.1 % [facility] Mean Platelet Volume 9.4 7.6 - 12.[address] [facility] NRBC% auto 1.1 % [facility] NRBC Absolute 0.110(H) 0.000 - 0.000 x10(3)/mc L [facility] Blood specimen (specimen) 09/24/2016 9:56 AM EST 09/24/2016 10:04 AM EST Narrative Resulting Agency Comment Spec In Lab Alirio Esparza MD HEMATOLOGY ORDERABL ES [facility] [place] [id number] * (ABNORMAL) Basic Metabolic Panel (non-fasting) (09/24/2016 [...] intervals supplied above were not validated at [facility] [place] [place]. Results from pediatric patients should be [...] the following links into your internet browser. [email or web address]/DHnkdep http://[employer]/DHMCnkf Blood specimen (specimen) 09/24/2016 9:56 AM EST 09/24/2016 10:04 AM EST Narrative Resulting Agency Comment Spec In Lab Alirio Esparza MD CHEMISTRY ORDERABLE S [facility] [place] [address] * XR Chest PA & Lateral (Generic) [...] CHEMISTRY ORDERABLE S [facility] [place] [address] * POCT Glucose (09/22/2016 8:17 AM EST) Glucose, POC 131 65 - 199 mg/dL [facility] Comment: Supplemental ranges: <140 mg/dL before meals <180 mg/dL all other times of the day Blood specimen (specimen) 09/22/2016 8:17 AM EST 09/22/2016 8:17 AM EST Narrative Authorizing Provider Result Slade Esparza MD POINT OF CARE TEST ORDERABLES [facility] [place] [address] * POCT Glucose (09/22/2016 4:01 AM EST) [facility] Glucose, POC 135 65 - 199 mg/dL [facility] Comment: Supplemental ranges: <140 mg/dL before meals <180 mg/dL all other times of the day Blood specimen (specimen) 09/22/2016 4:01 AM EST 09/22/2016 4:01 AM EST Alirio Esparza MD POINT OF CARE TEST ORDERABLES Performing Organization Address [facility] Co de Phone Number [facility] [place] [address] * Scan, Peripheral Blood (09/22/2016 4:00 AM EST) [facility] Plat estimate Normal [facility] RBC Morphology Abnormal [facility] Macrocyte 1-5 /HPF [facility] Plat, Giant Less than 1 /HPF [facility] Blood specimen (specimen) 09/22/2016 4:00 AM EST 09/22/2016 4:34 AM EST Narrative Resulting Agency Comment Spec In Lab Alirio Esparza MD HEMATOLOGY ORDERABL ES Performing Organization Address [facility] Co de Phone Number [facility] [place] [address] * Electrolytes panel (09/22/2016 4:00 AM EST) [facility] Sodium 145 135 - 145 mmol/L ST. [...] CHEMISTRY ORDERABLE S [facility] [place] [address] * (ABNORMAL) Differential, Automated (09/22/2016 4:00 AM EST) Neutrophil % 70.9 % [facility] Neutrophil Absolute 5.33 1.70 - 6.10 x10(3)/ L [facility] Lymph % 9.1 % [facility] Lymphocytes Abs 0.7(L) 0.9 - 3.2 x10(3)/[facility] LAB[facility] Monocyte % 18.0 % [facility] Monocyte Abs 1.4(H) 0.3 - 0.9 x10(3)/ L [facility] Eos % 0.0 % [facility] Eosinophils Abs 0.0 0.0 - 0.4 x10(3)/[facility] Basophil % 0.1 % [facility] Baso Absolute 0.0 0.0 - 0.1 x10(3)/ L [facility] Immature Gran % 1.90 % [facility] Comment: Immature granulocytes(IG's)percentage and absolute count will include metamyelocytes, myelocytes, and promyelocytes. Blood smears from CBCs yielding IG's will be scanned manually for concordance. If this scan disagrees with the automated IG or if promyelocytes are noted, a manual differential will be performed. Immature Gran Absolute 0.14(H) 0.00 - 0.04 x10(3)/ L [facility] Blood specimen (specimen) 09/22/2016 4:00 AM EST 09/22/2016 4:34 AM EST Narrative Resulting Agency Comment Spec In Lab Alirio Esparza MD HEMATOLOGY ORDERABL ES Performing Organization Address City/[facility]/ZIP Co de Phone Number [facility] [place] [address] * (ABNORMAL) Hemogram (09/22/2016 4:00 AM EST) White Blood Cell 7.5 4.0 - 9.5 x10(3)/mc L [facility] Red Blood Cell 2.93(L) 4.00 - 5.21 x10(6)/mc L [facility] Hemoglobin 9.2(L) 11.7 - 15.5 [...] [facility] NRBC% auto 0.3 % [facility] NRBC Absolute 0.020(H) 0.000 - 0.000 x10(3)/mc L [facility] Blood specimen (specimen) 09/22/2016 4:00 AM EST 09/22/2016 4:34 AM EST Narrative Resulting Agency Comment Spec In Lab Alirio Esparza MD HEMATOLOGY ORDERABL ES [facility] [place] [address] * (ABNORMAL) Cardiac Enzymes (09/22/2016 4:00 AM EST) Pathologist [facility] Troponin-T 0.13(H) <=0.03 ng/mL [facility] Comment: 0.03 ng/mL: Represents the 99th percentile upper reference limit for normals. >0.03 ng/mL: Elevated cardiac troponin T level indicative of myocardial damage. Diagnosis of acute, evolving or recent MA requires a typical rise and gradual fall [...] consensus document of the Joint Society of Cardiology/[place] College of Cardiology Committee for the redefinition of myocardial infarction. ??Journal of the [place] College of Cardiology 2000; 36: 959-969] Creatine Kinase 338(H) 0 - 160 unit/L [facility] Blood specimen (specimen) 09/22/2016 4:00 AM EST 09/22/2016 4:34 AM EST Narrative Resulting Agency Comment Spec In Lab Alirio Esparza MD CHEMISTRY ORDERABLE S [facility] [place] [address] * (ABNORMAL) Glucose, fasting (09/22/2016 4:00 AM [...] of Diabetes Mellitus, Position Statement from the [place] Diabetes Association. ??Diabetes Care, Volume 33, Supplement 1, Aug 2009 Blood specimen (specimen) 09/22/2016 4:00 AM EST 09/22/2016 4:34 AM EST Narrative Resulting Agency Comment Spec In Lab Alirio Esparza MD CHEMISTRY ORDERABLE S Performing Organization Address [facility] Co de Phone Number [facility] [place] [address] * (ABNORMAL) Creatinine (09/22/2016 4:00 AM EST) [facility] Signature Creatinine 0.69(L) 0.70 - 1.20 mg/dL [facility] Comment: Please note that the pediatric reference intervals supplied above were not validated at [facility] [place]. Results from pediatric patients should be [...] the following links into your internet browser. [email or web address] [email or web address] Blood specimen (specimen) 09/22/2016 4:00 AM EST 09/22/2016 4:34 AM EST Narrative Resulting Agency Comment Spec In Lab Alirio Esparza MD CHEMISTRY ORDERABLE S Performing Organization Address [facility] Co de Phone Number [facility] [place] [address] * BUN (09/22/2016 4:00 AM EST) Blood Urea Nitrogen 10 8 - 18 mg/dL [facility] Blood specimen (specimen) 09/22/2016 4:00 AM EST 09/22/2016 4:34 AM EST Narrative Resulting Agency Comment Spec In Lab Alirio Esparza MD CHEMISTRY ORDERABLE S Performing Organization Address City/[facility]/ZIP Co de Phone Number [facility] [place] [address] * POCT Glucose (09/21/2016 9:59 PM EST) Glucose, POC 146 65 - 199 mg/dL [facility] Comment: Supplemental ranges: <140 mg/dL before meals <180 mg/dL all other times of the day Blood specimen (specimen) 09/21/2016 9:59 PM EST 09/21/2016 9:59 PM EST Alirio Esparza MD POINT OF CARE TEST ORDERABLES Performing Organization Address [facility]/ZIP Co de Phone Number [facility] [place] [address] * POCT Glucose (09/21/2016 7:26 PM EST) Glucose, POC 152 65 - 199 mg/dL [facility] Comment: Supplemental ranges: <140 mg/dL before meals <180 mg/dL all other times of the day Blood specimen (specimen) 09/21/2016 7:26 PM EST 09/21/2016 7:26 PM EST Alirio Esparza MD POINT OF CARE TEST ORDERABLES Performing Organization Address City/[facility]/ZIP Co de Phone Number [facility] [place] [address] * POCT Glucose (09/21/2016 6:00 PM EST) Glucose, POC 146 65 - 199 mg/dL [facility] Comment: Supplemental ranges: <140 mg/dL before meals <180 mg/dL all other times of the day Blood specimen (specimen) 09/21/2016 6:00 PM EST 09/21/2016 6:00 PM EST Alirio Esparza MD POINT OF CARE TEST ORDERABLES [facility] [place] [address] * (ABNORMAL) BLOOD GAS 2 ARTERIAL (09/21/2016 [...] [facility] FIO2 Art 40 % [facility] PF Ratio Art 270 [facility] Blood specimen (specimen) 09/21/2016 4:42 PM EST 09/21/2016 4:42 PM EST Alirio Esparza MD POINT OF CARE TEST ORDERABLES Performing Organization Address [facility] Co de Phone Number [facility] [place] [address] * POCT Glucose (09/21/2016 4:07 PM EST) Glucose, POC 150 65 - 199 mg/dL [facility] Comment: Supplemental ranges: <140 mg/dL before meals <180 mg/dL all other times of the day Blood specimen (specimen) 09/21/2016 4:07 PM EST 09/21/2016 4:07 PM EST Alirio Esparza MD POINT OF CARE TEST ORDERABLES Performing Organization Address [facility] Co de Phone Number [facility] [place] [address] * (ABNORMAL) Hemoglobin (09/21/2016 4:05 PM EST) Hemoglobin 9.9(L) 11.7 - 15.5 gm/dL [facility] Blood specimen (specimen) 09/21/2016 4:05 PM EST 09/21/2016 4:20 PM EST Narrative Resulting Agency Comment Spec In Lab Alirio Esparza MD HEMATOLOGY ORDERABL ES Performing Organization Address [facility] Co de Phone Number [facility] [place] [address] * Potassium (09/21/2016 4:05 PM EST) Potassium 4.6 3.5 - 5.0 mmol/L ST. [...] City/[facility]/ZIP Co de Phone Number [facility] [place] [address] * POCT Glucose (09/21/2016 2:52 PM EST) Glucose, POC 117 65 - 199 mg/dL [facility] Comment: Supplemental ranges: <140 mg/dL before meals <180 mg/dL all other times of the day Blood specimen (specimen) 09/21/2016 2:52 PM EST 09/21/2016 2:52 PM EST Alirio Esparza MD POINT OF CARE TEST ORDERABLES Performing Organization Address City/[facility]/ZIP Co de Phone Number [facility] [place] [address] * POCT Glucose (09/21/2016 1:51 PM EST) Glucose, POC 108 65 - 199 mg/dL [facility] Comment: Supplemental ranges: <140 mg/dL before meals <180 mg/dL all other times of the day Blood specimen (specimen) 09/21/2016 1:51 PM EST 09/21/2016 1:51 PM EST Alirio Esparza MD POINT OF CARE TEST ORDERABLES Performing Organization Address City/[facility]/ZIP Co de Phone Number [facility] [place] [address] * POCT Glucose (09/21/2016 12:54 PM EST) Glucose, POC 128 65 - 199 mg/dL [facility] Comment: Supplemental ranges: <140 mg/dL before meals <180 mg/dL all other times of the day Blood specimen (specimen) 09/21/2016 12:54 PM EST 09/21/2016 12:54 PM EST Alirio Esparza MD POINT OF CARE TEST ORDERABLES [facility] [place] [address] * EKG 12 Lead (09/21/2016 12:26 PM EST) Ventricular rate 87 BPM MUSE SYSTEM Atrial Rate 87 BPM MUSE SYSTEM P-R Interval 256 ms MUSE SYSTEM QRS Duration 90 ms MUSE SYSTEM Q-T Interval 406 ms MUSE SYSTEM QTC Calculated (Bezet) 488 ms MUSE SYSTEM Calculated P Apex 24 degrees MUSE SYSTEM Calculated R Apex 21 degrees MUSE SYSTEM Calculated T Apex -5 degrees MUSE SYSTEM INTERPRETATION Sinus rhythm with 1st degree A-V block Nonspecific T wave abnormality Prolonged QT Abnormal ECG When compared with ECG of 19-MAY-2016 11:43, [place] interval has increased T wave inversion now [...] course of the esophagus and below the pxeoo-ek-pojx. There is a right IJ PA catheter [...] the course of theesophagus and below the pwkkj-gj-vswm. There is a right IJ PA catheter [facility] FIO2 Art 100 % [facility] PF Ratio Art 356 [facility] Blood specimen (specimen) 09/21/2016 12:20 PM EST 09/21/2016 12:20 PM EST Alirio Esparza MD POINT OF CARE TEST ORDERABLES [facility] [place] [address] * (ABNORMAL) BLOOD GAS 2 ARTERIAL (09/21/2016 [...] [facility] FIO2 Art 95 % [facility] Flow Art 0.7 LPM [facility] PF Ratio Art 313 [facility] Temp Art 36.7 Celsius [facility] Blood specimen (specimen) 09/21/2016 10:54 AM EST 09/21/2016 10:54 AM EST Alirio Esparza MD POINT OF CARE TEST ORDERABLES [facility] [place] [address] * Thrombin time (09/21/2016 10:50 AM EST) [...] S Performing Organization Address [facility] Co de Phone Number [facility] [place] [address] * Fibrinogen (09/21/2016 10:50 AM EST) Fibrinogen [...] HEMATOLOGY ORDERABLE S [facility] [place] [address] * APTT (09/21/2016 10:50 AM EST) Partial Thromboplastin Time 32 25 - [address] [facility] Comment: The recommended therapeutic range for full dose, unfractionated heparin at [facility] [place] [place] is 80 ? 114 seconds. The use [...] S Performing Organization Address [facility] de Phone Number [facility] [place] [address] * (ABNORMAL) Prothrombin Time (09/21/2016 10:50 AM [...] S Performing Organization Address [facility] de Phone Number [facility] [place] [address] * (ABNORMAL) Hemogram (09/21/2016 10:50 AM EST) [...] [facility] NRBC% auto 0.1 % [facility] NRBC Absolute 0.020(H) 0.000 - 0.000 x10(3)/mc L [facility] Blood specimen (specimen) 09/21/2016 10:50 AM EST 09/21/2016 10:56 AM EST Narrative Resulting Agency Comment Spec In Lab Luis Enrique Quarles MD HEMATOLOGY ORDERABLE S Performing Organization Address City/[facility] Co de Phone Number [facility] [place] [address] * Prepare Platelets, Apheresis (09/21/2016 10:30 AM EST) Pathologist [facility] Dispensed? Yes [facility] Blood specimen (specimen) 09/21/2016 10:30 AM EST 09/21/2016 10:28 AM EST Alirio Esparza MD BLOOD BANK PRODUCT ORDERABLES Performing Organization Address City/[facility]/ZIP Co de Phone Number [facility] [place] [address] * (ABNORMAL) BLOOD GAS 2 ARTERIAL (09/21/2016 10:05 AM EST) Pathologist [facility] pH, Arterial 7.33(L) 7.35 - 7.45 [facility] PCO2, Arterial 54(Critic al) 35 - [address] [facility] Comment:Noted by instrumental teacher. PO2, Arterial [...] [facility] Comment: Noted by instrumental teacher. Please [...] [facility] Temp Art 37.0 Celsius [facility] Blood specimen (specimen) 09/21/2016 10:05 AM EST 09/21/2016 10:05 AM EST Alirio Esparza MD POINT OF CARE TEST ORDERABLES [facility] [place] [address] * (ABNORMAL) BLOOD GAS 2 ARTERIAL (09/21/2016 9:44 AM EST) pH, Arterial 7.22(Criti gabrielle) 7.35 - 7.45 [facility] Comment:Noted by instrumental teacher. PCO2, Arterial 70(Critica l) 35 - [address] [facility] Comment:Noted by instrumental teacher. PO2, Arterial [...] ORDERABLES Performing Organization Address [facility] de Phone Number [facility] [place] [address] * (ABNORMAL) Hemoglobin (09/21/2016 9:42 AM EST) Hemoglobin 7.2(L) 11.7 - 15.5 gm/dL [facility] Blood specimen (specimen) 09/21/2016 9:42 AM EST 09/21/2016 9:51 AM EST Narrative Resulting Agency Comment Spec In Lab Alirio Esparza MD HEMATOLOGY ORDERABL ES Performing Organization Address [facility] Phone Number [facility] [place] [address] * Platelet count (09/21/2016 9:42 AM EST) Platelet 159 145 - 357 x10(3)/mc L [facility] Immature Plt % 1.6 0.0 - 7.4 % [facility] Comment: Limitation of the Immature Platelet Fraction (IPF)-May be less reliable when the platelet count is less than 52p455/uL due to statistical imprecision. The IPF value [...] in a decreased state of production. References: [employer] The Clinical Value of the Immature Platelet Fraction (IPF) in Cell Recovery Document Number 10-1143 12/2010 [employer] The Role of the Immature Platelet Fraction (IPF) in the Differential Diagnosis of Thrombocytopenia, Document MKT-[id number] V05/07/15 P012/13 Blood specimen (specimen) 09/21/2016 9:42 AM EST 09/21/2016 9:51 AM EST Narrative Resulting Agency Comment Spec In Lab Alirio Esparza MD HEMATOLOGY ORDERABL ES Performing Organization Address [facility] Co de Phone Number [facility] [place] [address] * (ABNORMAL) Hematocrit (09/21/2016 9:42 AM EST) [...] ES Performing Organization Address [facility] Co de Phone Number [facility] [place] [address] * Fibrinogen (09/21/2016 9:42 AM EST) Fibrinogen [...] HEMATOLOGY ORDERABL ES [facility] [place] [address] * (ABNORMAL) BLOOD GAS 2 ARTERIAL (09/21/2016 [...] [facility] Temp Art 37.0 Celsius [facility] Blood specimen (specimen) 09/21/2016 9:10 AM EST 09/21/2016 9:10 AM EST Alirio Esparza MD POINT OF CARE TEST ORDERABLES [facility] [place] [address] * Surgical Pathology Report (09/21/2016 9:09 AM EST) Final Diagnosis [id number] ?Location: 3T The signing pathologist has (i) [...] Esparza MD PATHOLOGY/CYTOLOGY ORDERABLES Performing Organization Address City/[facility]/[place] [address] * Specimen to Pathology (surgical or derm) (09/21/2016 9:09 AM EST) AP Specimen 09/21/2016 9:09 AM EST 09/21/2016 9:[address] [facility] - 09/21/2016 9:09 AM EST Specimen requisition ordered. ??Separate Pathology report to follow Alirio Esparza MD PATHOLOGY/CYTOLOGY ORDERABLES Performing Organization Address [facility] [place] [address] * (ABNORMAL) BLOOD GAS 2 ARTERIAL (09/21/2016 [...] OF CARE TEST ORDERABLES Performing Organization Address City/State/[facility] Co de Phone Number [facility] [place] [address] * (ABNORMAL) BLOOD GAS 2 ARTERIAL (09/21/2016 [...] [facility] FIO2 Art 95 % [facility] Flow Art 1.1 LPM [facility] PF Ratio Art 298 [facility] Temp Art 35.6 Celsius [facility] Blood specimen (specimen) 09/21/2016 8:18 AM EST 09/21/2016 8:18 AM EST Alirio Esparza MD POINT OF CARE TEST ORDERABLES [facility] [place] [address] * Prepare RBC (09/21/2016 7:05 AM EST) Dispensed? Yes [facility] Blood specimen (specimen) 09/21/2016 7:05 AM EST 09/21/2016 7:02 AM EST Alirio Esparza MD BLOOD BANK PRODUCT ORDERABLES [facility] [place] [address] * POCT Glucose (09/21/2016 6:42 AM EST) Glucose, POC 104 65 - 199 mg/dL [facility] Comment: Supplemental ranges: <140 mg/dL before meals <180 mg/dL all other times of the day Blood specimen (specimen) 09/21/2016 6:42 AM EST 09/21/2016 6:42 AM EST Alirio Esparza MD POINT OF CARE TEST ORDERABLES Performing Organization Address [facility] Co de Phone Number [facility] [place] [address] documented in this encounter Visit Diagnoses Diagnosis [...] dose on Wed09/21/16 at 1230, Until Discontinued, Ty Ty teeth, Routine Given 09/25/2016 9:40 AM EST [...] if phenyleprine and/or vasopressin ineffective.Call pager # [phone] if initiated., Routine Rate/Dose Change 09/21/2016 2:27 [...] L/min/M2. Maximum volume 2 L. Call house cleaner supervisor for additional fluid orders: pager #[phone]. Rate/Dose Verify 09/22/2016 10:00 AM EST 10 [...] 0600)1600 (Due - Provider: [facility]) aspirin chewable tablet 81 [...] dose on Wed09/21/16 at 1230, Until Discontinued, Ty Ty teeth, Routine 0900 (Not Given - Provider: [...] Routine documented in this encounter Care Teams Retail Sales Specialist Relationship Specialty Start Date End Date Deborah Quiroga APRN PCP - General Family Medicine 03/24/16 02/04/23 documented as of this encounter
--- OUTSIDE RECORDS SUMMARY | 2024-04-27 15:04 | XMS_ITS | Encounter Summary ---
[place] [address] Care Team Providers Care Graphic Manager Name Role Phone Ashley Quirogan Cornelius ANURAG Primary Care Provider [phone] Reason for Visit * Reason Comments Skin Check Encounter Details Date Type Department Care Team (Late st Contact Info) Description 11/11/2020 10:45 AM EDT Office Visit Dermatology at [address] [place] [address] Marek Bonilla MD [address] [facility] [address] [facility] [place], [place] [id number] Rosacea; Acrochordon Social History Tobacco Use Types [...] Discussed the possibility of getting this through [employer] or from the [facility] pharmacy if necessary. She has not yet [...] AM EDT Appointment Hematology [place] [address] 05/12/2024 10:00 AM EDT Office Visit Hematology [place] [address] Markel Borjas MD [facility] [address] [place] [address] 03/01/2025 4:15 PM EDT Office Visit Dermatology at [place] [address] [facility] [place] [phone] Marek Bonilla MD [address] [facility] [place] [address] documented as of this encounter Visit Diagnoses Diagnosis Rosacea Acrochordon Unspecified hypertrophic and atrophic condition of skin documented in this encounter Care Teams Graphic Manager Relationship Specialty Start Date End Date Deborah Quiroga APRN PCP - General Family Medicine 03/24/16 02/04/23 documented as of this encounter
--- OUTSIDE RECORDS SUMMARY | 2024-04-27 15:04 | XMS_ITS | Encounter Summary ---
[place] [address] Care Team Providers Care Content Developer Name Role Phone Ashley Quirogan Cornelius ANURAG Primary Care Provider [phone] Reason for Visit * Reason Comments Acrochordon Rosacea Encounter Details Date Type Department Care Team (Late st Contact Info) Description 12/05/2020 3:00 PM EDT Office Visit Dermatology at [address] [address] Marke Bonilla MD [address] [facility] [place] [address] Inflamed acrochordon Social History Tobacco Use Types [...] AM EDT Appointment Hematology [place] [address] 05/12/2024 10:00 AM EDT Office Visit [place]ology [place] [address] Markel Borjas MD [facility] [address] HEMATOLOGY [place] [address] 03/01/2025 4:15 PM EDT Office Visit Dermatology at [place] [address] [place] [address] Marek Bonilla MD [address] [facility] [place] [address] documented as of this encounter Visit Diagnoses Diagnosis Inflamed acrochordon Unspecified hypertrophic and atrophic condition of skin documented in this encounter Care Teams Content Developer Relationship Specialty Start Date End Date Deborah Quiroga APRN PCP - General Family Medicine 03/24/16 02/04/23 documented as of this encounter
--- OUTSIDE RECORDS SUMMARY | 2024-04-27 15:05 | XMS_ITS | Encounter Summary ---
[place] [address] Care Team Providers Care Clearing Supervisor Name Role Phone JunaidDeborah APRN Primary Care Provider [phone] Reason for Visit * Reason Onset Date Comments Labs Only 09/16/2016 Encounter Details Date Type Department Care Team (Late st Contact Info) Description 09/16/2016 Telephone Hematology [place] [phone] Alexandrea Greenwood, RN Labs Only Social History [...] 09/16/2016 11:09 AM EST Message received from racing secretary and handicapper: Purnima is having her Neulasta done today at [facility]. ??She is wondering if we want to do a CBC prior to the injection? [phone] Borjas: CBC is fine RN spoke with Swapna at [facility] who confirms they can draw CBC on pt today, RN faxed CBC w/diff to [facility] lab at [phone] RN relayed to pt that CBC ordered had been faxed to [facility], pt will have CBC drawn today prior to neulasta injection. documented in this encounter Plan of Treatment Upcoming Encounters Date Type Department Care Team (Late st Contact Info) Description 05/12/2024 9:00 AM EDT Appointment Hematology [place] [address] 05/12/2024 10:00 AM EDT Office Visit Hematology [place] [phone] Markel Borjas MD [facility] [address] [place] [address] 03/01/2025 4:15 PM EDT Office Visit Dermatology at [place] [address] [place] [phone] Marek Bonilla MD [address] [facility] [place] [address] documented as of this encounter [...] type documented in this encounter Care Teams Clearing Supervisor Relationship Specialty Start Date End Date Deborah Quiroga APRN PCP - General Family Medicine 03/24/16 02/04/23 documented as of this encounter
--- OUTSIDE RECORDS SUMMARY | 2024-04-27 15:05 | XMS_ITS | Encounter Summary ---
Author Organization [facility] [place] [address] Care Team Providers Care Maori Liaison Adviser Name Role Phone Deborah Quiroga APRN Primary Care Provider Encounter Details Date Type Department Care Team (Latest Contact Info) Description 07/10/2016 2:54 PM EST - 07/10/2016 11:59 PM EST [place] [phone] Discharge Disposition: Home Social History Tobacco Use [...] EDT Appointment Hematology [place] [address] 05/12/2024 10:00 AM EDT Office Visit Hematology [place] [phone] Markel Borjas MD [facility] [address] HEMATOLOGY [place] [address] 03/01/2025 4:15 PM EDT Office Visit Dermatology at [place] [address] [facility] [place] [address] Marek Bonilla MD [address] [facility] [place] [address] documented as of this encounter Procedures Procedure Name Priority Date/Time Associated Diagnosis Comments BONE MARROW FINAL REPORT Routine 07/10/2016 3:43 PM EST documented in this encounter Results * Bone Marrow Final Report (07/10/2016 3:43 PM EST) Final Diagnosis [id number] ?Location: OPW The signing pathologist has (i) examined the relevant preparation(s) for the specimen(s) and (ii) rendered or confirmed the diagnosis(es). . ? Bone Marrow Final DIAGNOSIS BONE MARROW (PERIPHERAL SMEAR, ASPIRATE SMEAR, TOUCH PREP, CLOT SECTION, CORE BIOPSY); [OSR# [id number], COLLECTED 06/23/2016, 19 SLIDES]: ?? 1. ??Normocellular [...] clonal lymphoproliferative or myeloproliferative ? disorder (OSR# [id number]) ?Chromosome analysis on the marrow aspirate revealed a normal female karyotype; ?46,XX[25] ??(OSR# [id number]) Electronically signed by: ??Elian Guillen MD Verified: [...] 3/uL Band/Seg 0.52 x103/uL; Lymph 0.75 x103/uL; Stone 0.15 x103/uL; Eos 0.01%; Baso 0.01 x10 [...] plasma cells represent 3-4% of the cellularity [place] ? Polytypic plasma cell staining, high background Lambda ?Polytypic plasma cell staining, high background Block: ? B2 (Core biopsy 2) Fixative: ?? Formalin ANTIBODY: ?? RESULT/COMMENT CD3 ? Scattered small lymphocytes and lymphoid aggregates highlighted CD20 ?Few scattered small lymphocytes stain ( ?? <CD3 in aggregates) CD138 ? Scattered plasma cells represent 3-4% of the cellularity [place] ? Polytypic plasma cell staining, high background [...] CONSULTATION CASE A - 19 slides labeled [id number], collection date 06/23/2016. [id number] Report to: Surgical Pathology Department [facility], [address] [place] [id number] 07/13/2016 11:38 AM EST [facility] Consult Case 07/10/2016 3:43 PM EST 07/10/2016 3:43 PM EST Nitesh Pina Jr., MD PATHOLOGY/CYTOLOGY O RDERABLES [facility] [place] [address] documented in this encounter Visit Diagnoses Not on filedocumented in this encounter Care Teams Maori Liaison Adviser Relationship Specialty Start Date End Date Deborah Quiroga, PARTS CONSULTANT PCP - General Family Medicine 03/24/16 02/04/23 documented as of this encounter
--- OUTSIDE RECORDS SUMMARY | 2024-04-27 15:05 | XMS_ITS | Encounter Summary ---
Author Organization [facility] Address [facility] [place] [address] Care Team Providers Care Gas Plant Dispatcher Name Role Phone Deborah Quiroga ANURAG Primary Care Provider [phone] Encounter Details Date Type Department Care Team (Late st Contact Info) Description 08/04/2016 External Results Hematology [place] [phone] Alexandrea Greenwood RN Neutropenia, unspecified type Social [...] AM EDT Appointment Hematology [place] [phone] 05/12/2024 10:00 AM EDT Office Visit Hematology [place] [phone] Markel Bojras MD [facility] [place] [address] 03/01/2025 4:15 PM EDT Office Visit Dermatology at [address] [address] Marek Bonilla MD [address], [place] [address] documented as of this encounter Procedures Procedure [...] type documented in this encounter Care Teams Gas Plant Dispatcher Relationship Specialty Start Date End Date Deborah Quiroga APRN PCP - General Family Medicine 03/24/16 02/04/23 documented as of this encounter
--- OUTSIDE RECORDS SUMMARY | 2024-04-27 15:05 | XMS_ITS | Encounter Summary ---
Author Organization [facility] [place] [address] Care Team Providers Care Hatchery Helper Name Role Phone Deborah Quirgoa ANURAG Primary Care Provider [phone] Encounter Details Date Type Department Care Team (Late st Contact Info) Description 06/09/2016 Orders Only Hematology [place] [phone] Nitesh Pina Jr., MD [facility] [facility] [address] [place] [address] Cyclical neutropenia Social History Tobacco Use Types [...] AM EDT Appointment Hematology [place] [phone] 05/12/2024 10:00 AM EDT Office Visit Hematology [place] [address] Markel Borjas MD [facility] [address] [place] [address] 03/01/2025 4:15 PM EDT Office Visit Dermatology at [place] [address] [place] [phone] Marek Bonilla MD [address], [place] [address] documented as of this encounter Results * Immunophenotyping Flow Cytometry (06/09/2016 4:53 PM EST) Immunophenotyping Flow See Comment [facility] Comment: When completed by the Pathologist, the Flow Cytometry Report ([id number]) will display under the Pathology Results section within eDH. Specimen of unknown material (specimen) 06/09/2016 4:53 PM EST 06/09/2016 5:00 PM EST Narrative Resulting Agency Comment Spec In Lab Nitesh Pina Jr., MD HEMATOLOGY ORDERABLE S Performing Organization Address City/State/[facility] Co de Phone Number [facility] [place] [address] documented in this encounter Visit Diagnoses Diagnosis Cyclical neutropenia Cyclic neutropenia documented in this encounter Care Teams Hatchery Helper Relationship Specialty Start Date End Date Deborah Quiroga, ANURAG PCP - General Family Medicine 03/24/16 02/04/23 documented as of this encounter
--- OUTSIDE RECORDS SUMMARY | 2024-04-27 15:05 | XMS_ITS | Encounter Summary ---
[place] [address] Care Team Providers Care Emergency Communications Operator Name Role Phone Deborah Quiroga APRN Primary Care Provider [phone] Reason for Visit * Reason Onset Date Comments Prior Authorization 09/11/2016 Neulasta Encounter Details Date Type Department Care Team (Late st Contact Info) Description 09/11/2016 Telephone Hematology [place] [phone] Monica Wick Prior Authorization (Neulasta ) Social [...] AM EST Prior Auth for Neulasta (Approved) [facility] is a covered facility under the members plan. ID# [id number] Call placed to [phone] Rationale: Can you please start a PA for this pt to receive as outpatient at [facility] on 09/16/16? 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 ??Her last ANC was 0.56 (or 560) on 08/04/16. ??This will need to be approved through her medical as out patient. J code for neulasta. ?? [id number]. Spoke w/ Anna Marie Call Reference [id number] Copay: $ Deductible is not met, patient will have out of pocket costs until deductible is met. documented in this encounter Plan of Treatment Upcoming Encounters Date Type Department Care Team (Late st Contact Info) Description 05/12/2024 9:00 AM EDT Appointment H[place]ology [place] [address] 05/12/2024 10:00 AM EDT Office Visit [place]ematology [place] [address] Markel Borjas MD [address] [address] [place] [address] 03/01/2025 4:15 PM EDT Office Visit Dermatology at [place] [address] [place] [address] Marek Bonilla MD [address], [place] [address] documented as of this encounter Visit Diagnoses Not on filedocumented in this encounter Care Teams Emergency Communications Operator Relationship Specialty Start Date End Date Deborah Quiroga APRN PCP - General Family Medicine 03/24/16 02/04/23 documented as of this encounter
--- OUTSIDE RECORDS SUMMARY | 2024-04-27 15:05 | XMS_ITS | Encounter Summary ---
[place] [address] Care Team Providers Care Blue Leather Sorter Name Role Phone Ashley Quirogazac Shields APRN Primary Care Provider [phone] Reason for Visit * Auth/Cert Specialty Diagnoses / Procedures Referred By Crispin t Referred To Contact Diagnoses Aortic stenosis Procedures PRO REPLACE AORT VALV, PROSTH VALV @REPLACE AORTIC VALVE, OPEN, W\CPB, W\PROSTHETIC VALVE (WRVU 41.32) Referral ID Status Reason Start Date Expiration Date Visits Re quested Visits Authorized [id number] 1 1 Encounter Details Date Type Department Care Team (Late st Contact Info) Description 09/21/2016 7:30 AM EST - 09/21/2016 12:04 PM EST [place] [address] Alirio Esparza MD @REPLACE AORTIC VALVE, OPEN, [...] in 1-2 weeks. Patient to follow-up with Moss Bleacher, Dr. Antelmo Burrell, in two weeks. Patient to follow-up with Cardiac Surgery, Dr. Alirio Esparza, to be scheduled for before 10/19/2016, with CXR, EKG, and Echo. Inpatient Provider Contact Information: [facility] Section of Cardiac Surgery [facility] [address] FAX [phone] Discharge Diagnoses (Hospital Problems) Primary Diagnoses: Secondary [...] 41.32) performed by Alirio Esparza MD at [facility] MAIN OR ??? Pro aortoplas for supravalv sten N/A 09/21/2016 @AORTOPLASTY FOR SUPRAVALVULAR STENOSIS (WRVU 29.33) performed by Alirio Esparza MD at [facility] MAIN OR Prior To Admission [...] Course: Purnima Thacker was admitted to [facility] on 09/21/2016 via the Same [...] Alirio Esparza and/or the Cardiac Surgery Physician Garbage Collector Team may be reached at . Antibiotic [...] to your dentist. Please refer to the [place] Heart Association [...] Dr. Alirio Jones. You may use a [place] or treadmill but avoid any pulling [...] low fat, low cholesterol, [place] Heart Association Diet. Driving: No driving until [...] the outpatient Phase 2 Cardiac Rehabilitation at [facility]. The patient agrees to a referral to this program. The referral will be sent at discharge and the patient should be contacted by the program within 1- 2 weeks from discharge. Future Appointments and Orders Future Appointments Provider Department Dept Phone 11/20/2016 11:30 AM Markel Borjas MD [facility]c [phone] Future Orders Complete By Expires Echocardiogram Transthoracic([facility]eb) [NED595 Custom] 10/18/2016 (Approximate) 09/18/2017 Process Instructions: If the Echocardiogram is to be PERFORMED in a DH location other than [employer]--STOP and order [id number], Echocardiogram South/External. Scheduling Instructions: Questions: Is a Bubble Study requested?: No Does the patient have Congenital Heart Disease?: No Does patient require sedation?: None GA rationale: Should this service be billed to the research sponsor?: EKG 12 Lead [EKG1 Custom] 10/18/2016 (Approximate) 09/25/2017 Process Instructions: Scheduling Instructions: Questions: Which DH location will this be performed?: [employer] Is a rhythm strip needed?: No If EKG Reason is Pre-op Evaluation, indicate diagnosis for surgery.: Should this service be billed to the research sponsor?: XR Chest PA & Lateral (Generic) [[id number] Custom] 10/18/2016 (Approximate) 09/25/2017 Process Instructions: Scheduling Instructions: Questions: Where will study be performed?: [facility]- Radiology Portable exam?: No Reason for exam and clinical history: s/p AVReplacement, patch annuloplasty 1 month f/u Other pertinent information: Stat read required?: Date of injury if applicable: Requested Time: Referral to Cardiac Rehab [AGJ655 Custom] As directed Process Instructions: If no progress note charted, please enter Clinical details in comments. Scheduling Instructions: Questions: My question or request is: s/p AVR. Cardiac rehab at [facility] Referral to Home Health - at DISCHARGE [[id number] CPT(R)] As directed Process Instructions: Scheduling Instructions: Comments: DOCUMENTATION FOR VNA SERVICES (INCLUDING THOSE PATIENTS WITH MEDICARE COVERAGE REQUIRING HOME VNA SERVICES AND/OR HOSPICE SERVICES) PATIENT'S LOCATION: Purnimakary Galleg[address] [address] (home) No relevant phone numbers on file. [employer] Support's Name: self In discussion with the attending physician, it is certified that this patient is under their care and that they, or a Nurse Practitioner, or Physician Garbage Collector who is working directly with them, hada [...] for services as follows: HOME HEALTH AGENCY: [facility] PHONE: [phone] FAX: [phone] RN orders: Cardiopulmonary assessment, incisional assessment, assess [...] issues please call the Cardiac SurgeryOffice at [phone] FOR MEDICARE ONLY: In discussion with the [...] noted. Questions: Agency name and contact information: [facility] Patient location post discharge: home What services are requested: Registered Nurse Physical Therapy Occupational Therapy Start date: Responsible MD post discharge contact info: Arrangements for VNA/home care: As above. VN RN OR PCP TO PLEASE REMOVE CHEST TUBE SUTURES ON OR AFTER 09/30/16 Signed: Crispin Aranda PA-C 09/25/2016 [facility] Section of Cardiac Surgery [facility] [address] FAX [phone] Date: 09/25/2016 CC: ANURAG Alford Caryn E, APRN [address] [place] [address] documented in this encounter Discharge Instructions * [...] Alirio Esparza and/or the Cardiac Surgery Physician Garbage Collector Team may be reached at . Antibiotic [...] to your dentist. Please refer to the [place] Heart Association [...] Dr. Alirio Jones. You may use a [place] or treadmill but avoid any pulling [...] low fat, low cholesterol, [place] [employer] Diet. Driving: No driving until [...] the outpatient Phase 2 Cardiac Rehabilitation at [facility]. The patient agrees to a referral [...] PM EST Cardiac Surgery Progress Note: ID: [id number] S/p AVR, patch aortoplasty POD#2. PMH of [...] Gas) No results found for: PHART, PO2ART, CTM4VWY Assessment/Plan: TPW out this am. (+) BM. [...] Signed: Crispin Aranda PA-C 09/24/2016 Team pager: [phone]; [phone] after 5pm [facility] Section of Cardiac Surgery * Leonor Henson S, BOILERMAKER FITTER - 09/23/2016 10:48 AM EST Cardiac Surgery Progress Note: ID: [id number] s/p AVR, patch aortoplasty POD#2. PMH of [...] Gas) No results found for: PHART, PO2ART, QUL9JHF Assessment/Plan: s/p AVR, patch aortoplasty POD#2. PMH of Neutropenia, HLD, HTN, Depression, obesity, . Transferred from [facility] yesterday and doing well. Pathway. Will [...] on rounds. Signed: Leonor Henson APRN [facility] Section of Cardiac Surgery Date: 09/23/2016 * Nico Palacios PA - 09/22/2016 9:56 AM EST Cardiac Surgery Progress Note: ID: [id number] s/p AVR, patch aortoplasty POD#1. PMH of [...] NT, ND, soft. Ext: Moves all extremities. [place], well perfused. Incisions: C/D/I Tubes/Lines/Drains: PIV, leanna, [...] Surgeon on rounds. Signed: EKATERINA KIM [facility] Section of Cardiac Surgery Date: [...] MD - 09/21/2016 7:10 AM EST Mrs. Tahcker is being sent for consideration of AVR [...] Outcome (s) achieved Date Met: 09/25/16 09/25/16 6271 Coping/Psychosocial Plan Of Care Reviewed With patient [...] health, home with outpatient services Lalitha Cohen [facility] Pager: [phone] Inpatient Physical Therapy Patient status, treatment interventions, and goals discussed with student. I am in agreement with all details and associated flowsheet rows as documented and was present for all aspects of the patient treatment session. Nery Jaramillo, CANDY Pager [phone] Problem: Acute Rehab Services Goal & Intervention Plan Goal: Bed Mobility Goal Stand Alone Therapy Goal Outcome: Ongoing (Interventions Implemented as Appropriate) 09/22/16 1611 09/25/16 0947 Bed Mobility Goal Bed Mobility Goal, Time to Achieve 4 days -- Bed Mobility Goal, Activity Type scoot/bridge;supine to sit/sit to supine -- Bed Mobility Goal, [place] Level independent -- Bed Mobility Goal, Additional [...] Achieve 4 days -- Gait Training Goal, [place] Level independent -- Gait Training Goal, Distance [...] health Lalith[facility] Cohen [facility] Pager: [phone] Inpatient Physical Therapy Patient status, treatment interventions, and goals discussed with student. I am in agreement with all details and associated flowsheet rows as documented and was present for all aspects of the patient treatment session. Nery Jaramillo, CONTACT CENTER TEAM LEAD Pager [phone] Problem: Acute Rehab Services Goal & Intervention Plan Goal: Bed Mobility Goal Stand Alone Therapy Goal Outcome: Ongoing (Interventions Implemented as Appropriate) 09/22/16161009/23/161411 Bed Mobility Goal Bed Mobility Goal, Time to Achieve 4 days -- Bed Mobility Goal, Activity Type scoot/bridge;supine to sit/sit to supine -- Bed Mobility Goal, [place] Level independent -- Bed Mobility Goal, Additional [...] Achieve 4 days -- Gait Training Goal, [place] Level independent -- Gait Training Goal, Distance [...] days -- Transfer Training Goal, Activity Type rmj-pp-mprfc/ydjgl-nf-xba;ija-ek-zfecd/dojdd-am-dwq -- Transfer Train Goal, [place] Level independent -- Transfer Training Goal, Additional Goal abides sternal precautions -- Transfer Training Goal, Outcome -- goal met * Consult Note - Jana Crenshaw RN - 09/23/2016 9:41 AM EST [facility] CARDIAC REHABILITATION Purnima Thacker was seen today regarding participation in the outpatient Phase 2 Cardiac Rehabilitation at [facility]. The patient agrees to a referral [...] Another Service: (cardiac rehab) NICOLE HERNANDEZ, PT Pager:[phone] Inpatient Physical Therapy Problem: Acute Rehab Services Goal & Intervention Plan Goal: Bed Mobility Goal Stand Alone Therapy Goal Outcome: Ongoing (Interventions Implemented as Appropriate) 09/22/161610 Bed Mobility Goal Bed Mobility Goal, Time to Achieve 4 days Bed Mobility Goal, Activity Type scoot/bridge;supine to sit/sit to supine Bed Mobility Goal, [place] Level independent Bed Mobility Goal, Additional Goal able to abide sternal precautions during transfers Goal: Gait Training Goal Stand Alone Therapy Goal Outcome: Ongoing (Interventions Implemented as Appropriate) 09/22/161610 Gait Training Goal Gait Training Goal, Date Established 09/22/16 Gait Training Goal, Time to Achieve 4 days Gait Training Goal, [place] Level independent Gait Training Goal, Distance to Achieve ascend and descends 2 steps independently Goal: Goal Transfer Training Stand Alone Therapy Goal Outcome: Ongoing (Interventions Implemented as Appropriate) 09/22/161610 Goal Transfer Training Transfer Training Goal, Time to Achieve 4 days Transfer Training Goal, Activity Type dqh-qd-avecj/satlp-vl-ehn;ofk-hy-vhnoe/xlbgv-wl-ibn Transfer Train Goal, [place] Level independent Transfer Training Goal, Additional Goal [...] of completing AD's at home, chooses her mgittp-pg-hzg, Martha Thacker (home) for her DPOAH, 2nd choice in friend, Nitesh Rad, [place], [place] Current Coping/Education/Information Needs: patient sitting up [...] close by, Rashad & Raymond, and her pwllpi-jb-yqf Martha Thacker who she has chosen to be her DPOAH. Also has a friend Nitesh Leroy who lives in [place], [place], also her DPOAH choice. Behavioral Health History: none on file in e[facility] Substance Use/Abuse: none on file in [facility] Other Pertinent/Service Specific Information: none Health/Prescription Coverage: Primary Insurance: [employer] Secondary Insurance: none Prescription Coverage: yes, per patient no issues Preferred Pharmacy: ?? Other: none Primary Care Provider: Deborah Quiroga, BOILERMAKER FITTER [phone] Patient/Caregiver Goals of Treatment: per medical team recommendations at discharge for CT surgery Potential Needs for Transition of Care: Rehab/SNF: TBD Home Health: TBD DME: no Dialysis: no Community Resources: non3 Transportation: ride home with a friend Other: none Anticipated Barriers to Discharge/Special Considerations: none anticipated at this time Plan: patient will need VNA services at discharge. The patient/parts representative has been provided a list of Home Health Agencies/DME vendors which servetheir preferred geographic area. A letter describing our affiliations was reviewed with them and they were educated about their right to choose where referrals are placed. Patient requests referral to: [facility] [employer]. PHONE: [phone] FAX: [phone] Expected date of discharge: Fri/Sat? CM called VNA to confirm referral, talked with VALDO Bunn/intake who stated she was familiar w/patient & would monitor her progress through curaspan. Referral routed to the Yacht Master for matching with agency/vendor and to provide any required information. A member of the Care Management team will continue to monitor progress, follow for continuity of care and assist with transition of care planning. Amanda Moreno RN Pager: [phone] * Op Note - Alirio Esparza MD - 09/21/2016 12:53 PM EST 09/23/2016 Purnima Thacker [id number] Preoperative Diagnosis: Symptomatic aortic stenosis Postoperative Diagnosis: Symptomatic aortic stenosis Procedure: Aortic valve replacement: Bovine Pericardial 25 mm Surgeon: Alirio Esparza M.D. Garbage Collector: Philip BALL Anesthesia: General endotracheal anesthesia Drains: [...] The patient was transported to the [facility] on levo. All counts were correct. [...] Operative Note Patient Name: Purnima Thacker : [id number] MR#: [id number] Case Date: 09/21/2016 Surgeon: Surgeon(s) and Role: * Alirio Esparza MD - Primary * Nico Palacios PA - Physician Garbage Collector Preoperative diagnosis: Postoperative diagnosis: Procedure(s) (LRB): @REPLACE [...] AM EDT Appointment Hematology [place] [address] 05/12/2024 10:00 AM EDT Office Visit Hematology [place] [address] Markel Borjas MD [facility] [address] HEMAT[place] [address] 03/01/2025 4:15 PM EDT Office Visit Dermatology at [address] [place] [address] Marek Bonilla MD [address], [place] [address] Scheduled Orders Name Type Priority Associated Diagnoses [...] IMPLANTABLE DEVICES SCAN 09/26/2016 12:00 AM EST [employer] FARMER SCAN 09/26/2016 12:00 AM EST POTASSIUM Routine [...] SCAN EXT O RDR/RSLT * SCAN DOC: [place] FARMER (09/26/2016 12:00 AM EST) Anatomical Region Laterality Modality Other Narrative 09/26/2016 12:00 AM EST Ordered by an unspecified provider. Scanning Provider MEDIA MGR SCAN EXT O RDR/RSLT * Potassium (09/25/2016 4:32 AM EST) Potassium 4.4 3.5 - 5.0 mmol/L [place] [...] ORDERABLE S [facility] [place] [place] [address] * (ABNORMAL) Differential, Automated (09/24/2016 9:56 AM EST) Pathologist [facility] Neutrophil % 76.8 % [facility] Neutrophil Absolute 7.79(H) 1.70 - 6.10 x10(3)/mc L [facility] Lymph % 11.1 % [facility] Lymphocytes Abs 1.1 0.9 - 3.2 x10(3)/mc L [facility] Monocyte % 8.5 % [facility] Monocyte Abs 0.9 0.3 - 0.9 x10(3)/mc L [facility] Eos % 0.5 % [facility] Eosinophils Abs 0.0 0.0 - 0.4 x10(3)/mc L [facility] Basophil % 0.2 % [facility] [...] ORDERABL ES [facility] [place] [place] [address] * (ABNORMAL) Hemogram (09/24/2016 9:56 AM EST) [...] MEDICAL CENTER LAB[facility] NRBC% auto 1.1 % [facility] NRBC Absolute 0.110(H) 0.000 - 0.000 x10(3)/mc L [facility] Blood specimen (specimen) 09/24/2016 9:56 AM EST 09/24/2016 10:04 AM EST Narrative Resulting Agency Comment Spec In Lab Alirio Esparza MD HEMATOLOGY ORDERABL ES [facility] [place] [place] [address] * (ABNORMAL) Basic Metabolic Panel (non-fasting) (09/24/2016 [...] the following links into your internet browser. [email or web address] Blood specimen (specimen) 09/24/2016 9:56 AM EST 09/24/2016 10:04 AM EST Narrative Resulting Agency Comment Spec In Lab Alirio Esparza MD CHEMISTRY ORDERABLE S [facility] [place] [address] * XR Chest PA & Lateral (Generic) [...] ORDERABLE S [facility] [place] [address] * POCT Glucose (09/22/2016 8:17 AM EST) Glucose, POC 131 65 - 199 mg/dL [facility] Comment: Supplemental ranges: <140 mg/dL before meals <180 mg/dL all other times of the day Blood specimen (specimen) 09/22/2016 8:17 AM EST 09/22/2016 8:17 AM EST Alirio Esparza MD POINT OF CARE TEST ORDERABLES [facility] [place] [address] * POCT Glucose (09/22/2016 4:01 AM EST) Glucose, POC 135 65 - 199 mg/dL [facility] Comment: Supplemental ranges: <140 mg/dL before meals <180 mg/dL all other times of the day Blood specimen (specimen) 09/22/2016 4:01 AM EST 09/22/2016 4:01 AM EST Alirio Esparza MD POINT OF CARE TEST ORDERABLES [facility] [place] [address] * Scan, Peripheral Blood (09/22/2016 4:00 AM EST) Plat estimate Normal [facility] RBC Morphology Abnormal [facility] Macrocyte 1-5 /HPF [facility] Plat, Giant Less than 1 /HPF [facility] Blood specimen (specimen) 09/22/2016 4:00 AM EST 09/22/2016 4:34 AM EST Narrative Resulting Agency Comment Spec In Lab Alirio Esparza MD HEMATOLOGY ORDERABL ES Performing Organization Address [facility]/ZIP Co de Phone Number [facility] [place] [place] [address] * Electrolytes panel (09/22/2016 4:00 AM EST) Pathologist [facility] Sodium 145 135 - 145 mmol/L [place] [...] Phone Number [facility] [place] [place] [address] * (ABNORMAL) Differential, Automated (09/22/2016 4:00 AM EST) Neutrophil % 70.9 % [facility] Neutrophil Absolute 5.33 1.70 - 6.10 x10(3)/mc L [facility] Lymph % 9.1 % [facility] Lymphocytes Abs 0.7(L) 0.9 - 3.2 x10(3)/[facility] Monocyte % 18.0 % [facility] Monocyte Abs 1.4(H) 0.3 - 0.9 x10(3)/[facility] Eos % 0.0 % [facility] Eosinophils Abs 0.0 0.0 - 0.4 x10(3)/[facility] Basophil % 0.1 % [facility] Baso Absolute 0.0 0.0 - 0.1 x10(3)/[facility] [...] Immature Gran Absolute 0.14(H) 0.00 - 0.04 x10(3)/[facility] Blood specimen (specimen) 09/22/2016 4:00 AM EST 09/22/2016 4:34 AM EST Narrative Resulting Agency Comment Spec In Lab Alirio Esparza MD HEMATOLOGY ORDERABL ES [facility] [place] [address] * (ABNORMAL) Hemogram (09/22/2016 4:00 AM EST) White Blood Cell 7.5 4.0 - 9.5 x10(3)/[facility] Red Blood Cell 2.93(L) 4.00 - 5.21 x10(6)/[facility] Hemoglobin 9.2(L) 11.7 - 15.5 [...] MEDICAL CENTER LABORATORY NRBC% auto 0.3 % [facility] NRBC Absolute 0.020(H) 0.000 - 0.000 x10(3)/mc L [facility] Blood specimen (specimen) 09/22/2016 4:00 AM EST 09/22/2016 4:34 AM EST Narrative Resulting Agency Comment Spec In Lab Alirio Esparza MD HEMATOLOGY ORDERABL ES Performing Organization Address City/State/[facility] Co de Phone Number [facility] [place] [address] * (ABNORMAL) Cardiac Enzymes (09/22/2016 4:00 AM [...] consensus document of the Joint Society of Cardiology/[place] College of Cardiology Committee for the redefinition of myocardial infarction. ??Journal of the [place] College of Cardiology 2000; 36: 959-969] Creatine Kinase 338(H) 0 - 160 unit/L [facility] Blood specimen (specimen) 09/22/2016 4:00 AM EST 09/22/2016 4:34 AM EST Narrative Resulting Agency Comment Spec In Lab Alirio Esparza MD CHEMISTRY ORDERABLE S Performing Organization Address [facility]/[place] de Phone Number [facility] [place] [address] * (ABNORMAL) Glucose, fasting (09/22/2016 4:00 AM [...] of Diabetes Mellitus, Position Statement from the [place] Diabetes Association. ??Diabetes Care, Volume 33, Supplement 1, Aug 2009 Blood specimen (specimen) 09/22/2016 4:00 AM EST 09/22/2016 4:34 AM EST Narrative Resulting Agency Comment Spec In Lab Alirio Esparza MD CHEMISTRY ORDERABLE S Performing Organization Address [facility] Co de Phone Number [facility] [place] [address] * (ABNORMAL) Creatinine (09/22/2016 4:00 AM EST) [facility] Creatinine 0.69(L) 0.70 - 1.20 mg/dL [facility] Comment: Please note that the pediatric reference intervals supplied above were not validated at [facility]. Results from pediatric patients should be interpreted in conjunction to the patient's age, height and muscle mass. Est Glomerular Filtration Rate >60 >=60 M[place] [...] the following links into your internet browser. [email or web address] Blood specimen (specimen) 09/22/2016 4:00 AM EST 09/22/2016 4:34 AM EST Narrative Resulting Agency Comment Spec In Lab Alirio Esparza MD CHEMISTRY ORDERABLE S Performing Organization Address City/[facility] Co de Phone Number [facility] [place] [address] * BUN (09/22/2016 4:00 AM EST) [facility] Blood Urea Nitrogen 10 8 - 18 mg/dL [facility] Blood specimen (specimen) 09/22/2016 4:00 AM EST 09/22/2016 4:34 AM EST Narrative Resulting Agency Comment Spec In Lab Alirio Esparza MD CHEMISTRY ORDERABLE S Performing Organization Address [facility]/ZIP Co de Phone Number [facility] [place] [address] * POCT Glucose (09/21/2016 9:59 PM EST) Glucose, POC 146 65 - 199 mg/dL [facility] Comment: Supplemental ranges: <140 mg/dL before meals <180 mg/dL all other times of the day Blood specimen (specimen) 09/21/2016 9:59 PM EST 09/21/2016 9:59 PM EST Alirio Esparza MD POINT OF CARE TEST ORDERABLES Performing Organization Address City/[facility]/ZIP Co de Phone Number [facility] [place] [place] [address] * POCT Glucose (09/21/2016 7:26 PM EST) Glucose, POC 152 65 - 199 mg/dL [facility] Comment: Supplemental ranges: <140 mg/dL before meals <180 mg/dL all other times of the day Blood specimen (specimen) 09/21/2016 7:26 PM EST 09/21/2016 7:26 PM EST Alirio Esparza MD POINT OF CARE TEST ORDERABLES Performing Organization Address [facility] Co de Phone Number [facility] [place] [address] * POCT Glucose (09/21/2016 6:00 PM EST) Glucose, POC 146 65 - 199 mg/dL [facility] Comment: Supplemental ranges: <140 mg/dL before meals <180 mg/dL all other times of the day Blood specimen (specimen) 09/21/2016 6:00 PM EST 09/21/2016 6:00 PM EST Alirio Esparza MD POINT OF CARE TEST ORDERABLES Performing Organization Address City/[facility] Co de Phone Number [facility] [place] [address] * (ABNORMAL) BLOOD GAS 2 ARTERIAL (09/21/2016 4:42 PM EST) [facility] pH, Arterial 7.35(L) 7.35 - 7.45 [facility] PCO2, Arterial 48(H) 35 - 45 mmHg [facility] PO2, Arterial 108(H) 85 - 104 mmHg [facility] Bicarbonate, Arterial 26.0 20.0 - 26.0 mmol/L [facility] Excess, Arterial 0.5 -3.0 - 3.0 mmol/L [facility] Hgb Blood Gas 10.4(L) 11.7 - 15.5 gm/dL [facility] Oxyhemoglobin, Arterial 96.2 94.0 - 97.0 % [facility] Carboxyhemoglob in, Arterial 0.0 % [facility] PF Ratio Art 270 [facility] Blood specimen (specimen) 09/21/2016 4:42 PM EST 09/21/2016 4:42 PM EST Alirio Esparza MD POINT OF CARE TEST ORDERABLES Performing Organization Address [facility] Co de Phone Number [facility] [place] [address] * POCT Glucose (09/21/2016 4:07 PM EST) Pathologist [facility] Glucose, POC 150 65 - 199 mg/dL [facility] Comment: Supplemental ranges: <140 mg/dL before meals <180 mg/dL all other times of the day Blood specimen (specimen) 09/21/2016 4:07 PM EST 09/21/2016 4:07 PM EST Alirio Esparza MD POINT OF CARE TEST ORDERABLES Performing Organization Address [facility] de Phone Number [facility] [place] [address] * (ABNORMAL) Hemoglobin (09/21/2016 4:05 PM EST) [facility] Hemoglobin 9.9(L) 11.7 - 15.5 gm/dL [facility] Blood specimen (specimen) 09/21/2016 4:05 PM EST 09/21/2016 4:20 PM EST Narrative Resulting Agency Comment Spec In Lab Alirio Esparza MD HEMATOLOGY ORDERABL ES Performing Organization Address [facility] Phone Number [facility] [place] [place] [address] * Potassium (09/21/2016 4:05 PM EST) [facility] Potassium 4.6 3.5 - 5.0 mmol/L [facility] [...] MD CHEMISTRY ORDERABLE S Performing Organization Address [facility] Co de Phone Number [facility] [place] [address] * POCT Glucose (09/21/2016 2:52 PM EST) Glucose, POC 117 65 - 199 mg/dL [facility] Comment: Supplemental ranges: <140 mg/dL before meals <180 mg/dL all other times of the day Blood specimen (specimen) 09/21/2016 2:52 PM EST 09/21/2016 2:52 PM EST Alirio Esparza MD POINT OF CARE TEST ORDERABLES Performing Organization Address [facility] Co de Phone Number [facility] [place] [address] * POCT Glucose (09/21/2016 1:51 PM EST) Glucose, POC 108 65 - 199 mg/dL [facility] Comment: Supplemental ranges: <140 mg/dL before meals <180 mg/dL all other times of the day Blood specimen (specimen) 09/21/2016 1:51 PM EST 09/21/2016 1:51 PM EST Alirio Esparza MD POINT OF CARE TEST ORDERABLES Performing Organization Address [facility] Co de Phone Number [facility] [place] [place] [address] * POCT Glucose (09/21/2016 12:54 PM EST) Glucose, POC 128 65 - 199 mg/dL [facility] Comment: Supplemental ranges: <140 mg/dL before meals <180 mg/dL all other times of the day Blood specimen (specimen) 09/21/2016 12:54 PM EST 09/21/2016 12:54 PM EST Alirio Esparza MD POINT OF CARE TEST ORDERABLES [facility] [place] [address] * EKG 12 Lead (09/21/2016 12:26 PM EST) Ventricular rate 87 BPM MUSE SYSTEM Atrial Rate 87 BPM MUSE SYSTEM P-R Interval 256 ms MUSE SYSTEM QRS Duration 90 ms MUSE SYSTEM Q-T Interval 406 ms MUSE SYSTEM QTC Calculated (Bezet) 488 ms MUSE SYSTEM Calculated P [place] 24 degrees MUSE SYSTEM Calculated R [place] 21 degrees MUSE SYSTEM Calculated T [place] -5 degrees MUSE SYSTEM INTERPRETATION Sinus rhythm [...] course of the esophagus and below the uuhwp-gw-wjlc. There is a right IJ PA catheter [...] the course of theesophagus and below the rzfma-tr-bktx. There is a right IJ PA catheter [...] [facility] PF Ratio Art 356 [facility] Blood specimen (specimen) 09/21/2016 12:20 PM EST 09/21/2016 12:20 PM EST Alirio Esparza MD POINT OF CARE TEST ORDERABLES Performing Organization Address [facility] Phone Number [facility] [place] [address] * (ABNORMAL) BLOOD GAS 2 ARTERIAL (09/21/2016 [...] [facility] PF Ratio Art 313 [facility] Temp Art 36.7 Celsius [facility] Blood specimen (specimen) 09/21/2016 10:54 AM EST 09/21/2016 10:54 AM EST Alirio Esparza MD POINT OF CARE TEST ORDERABLES Performing Organization Address City/State/[facility] Co de Phone Number [facility] [place] [address] * Thrombin time (09/21/2016 10:50 AM EST) [...] MD HEMATOLOGY ORDERABLE S Performing Organization Address [facility] de Phone Number [facility] [place] [address] * Fibrinogen (09/21/2016 10:50 AM EST) Fibrinogen [...] MD HEMATOLOGY ORDERABLE S Performing Organization Address [facility] de Phone Number [facility] [place] [address] * APTT (09/21/2016 10:50 AM EST) [facility] Partial Thromboplastin Time 32 25 - 35 sec [facility] Comment: The recommended therapeutic range for full dose, unfractionated heparin at [facility] is 80 ? [...] MD HEMATOLOGY ORDERABLE S Performing Organization Address [facility] de Phone Number [facility] [place] [address] * (ABNORMAL) Prothrombin Time (09/21/2016 10:50 AM EST) Pathologist [facility] Prothrombin Time 18.7(H) 12.0 - 15.0 [...] ORDERABLE S [facility] [address] * (ABNORMAL) Hemogram (09/21/2016 10:50 AM EST) [...] Standard Deviation 42.6 37.0 - 46.0 fL [facility] RDW coefficient of variation 12.1 11.5 - 14.1 % [facility] Mean Platelet Volume 9.2 7.6 - 12.9 fL [facility] NRBC% auto 0.1 % [facility] NRBC Absolute 0.020(H) 0.000 - 0.000 x10(3)/mc L [facility] Blood specimen (specimen) 09/21/2016 10:50 AM EST 09/21/2016 10:56 AM EST Narrative Resulting Agency Comment Spec In Lab Luis Enrique Quarles MD HEMATOLOGY ORDERABLE S Performing Organization Address [facility] de Phone Number [facility] [place] [address] * Prepare Platelets, Apheresis (09/21/2016 10:30 AM EST) Dispensed? Yes [facility] Blood specimen (specimen) 09/21/2016 10:30 AM EST 09/21/2016 10:28 AM EST Alirio Esparza MD BLOOD BANK PRODUCT ORDERABLES Performing Organization Address [facility] Phone Number [facility] [place] [address] * (ABNORMAL) BLOOD GAS 2 ARTERIAL (09/21/2016 10:05 AM EST) pH, Arterial 7.33(L) 7.35 - 7.45 [facility] PCO2, Arterial 54(Critic al) 35 - 45 mmHg [facility] Comment:Noted by musician instrumental. PO2, Arterial 218(H) 85 - 104 mmHg [facility] Bicarbonate, Arterial 27.9(H) 20.0 - 26.0 mmol/L [facility] Base Excess, Arterial 2.0 -3.0 - 3.0 mmol/L [facility] Comment: Noted by musician instrumental. Please note: Patients with WBC >100,000 may [...] TEST ORDERABLES [facility] [place] [address] * (ABNORMAL) BLOOD GAS 2 ARTERIAL (09/21/2016 9:44 AM EST) pH, Arterial 7.22(Criti gabrielle) 7.35 - 7.45 [facility] Comment:Noted by musician instrumental. PCO2, Arterial 70(Critica l) 35 - 45 mmHg [facility] Comment:Noted by musician instrumental. PO2, Arterial 224(H) 85 - 104 mmHg [...] TEST ORDERABLES [facility] [place] [address] * (ABNORMAL) Hemoglobin (09/21/2016 9:42 AM EST) Hemoglobin 7.2(L) 11.7 - 15.5 gm/dL [facility] Blood specimen (specimen) 09/21/2016 9:42 AM EST 09/21/2016 9:51 AM EST Narrative Resulting Agency Comment Spec In Lab Alirio Esparza MD HEMATOLOGY ORDERABL ES Performing Organization Address [facility]/ZIP Co de Phone Number [facility] [place] [address] * Platelet count (09/21/2016 9:42 AM EST) Platelet 159 145 - 357 x10(3)/mc L [facility] Immature Plt % 1.6 0.0 - 7.4 % [facility] Comment: Limitation of the Immature Platelet Fraction (IPF)-May be less reliable when the platelet count is less than 10l954/uL due to statistical imprecision. The IPF value [...] in a decreased state of production. References: [employer] The Clinical Value of the Immature Platelet Fraction (IPF) in Cell Recovery Document Number 10-1143 12/2010 [employer] The Role of the Immature Platelet Fraction (IPF) in the Differential Diagnosis of Thrombocytopenia, Document MKT-[id number] V05/07/15 P0514 Blood specimen (specimen) 09/21/2016 9:42 AM EST 09/21/2016 9:51 AM EST Narrative Resulting Agency Comment Spec In Lab Alirio Esparza MD HEMATOLOGY ORDERABL ES Performing Organization Address [facility] Co de Phone Number [facility] [place] [address] * (ABNORMAL) Hematocrit (09/21/2016 9:42 AM EST) [...] MD HEMATOLOGY ORDERABL ES Performing Organization Address [facility] de Phone Number [facility] [place] [address] * Fibrinogen (09/21/2016 9:42 AM EST) Fibrinogen [...] ORDERABL ES Performing Organization Address [facility] Co de Phone Number [facility] [place] [address] * (ABNORMAL) BLOOD GAS 2 ARTERIAL (09/21/2016 [...] TEST ORDERABLES [facility] [place] [address] * Surgical Pathology Report (09/21/2016 9:09 AM EST) Final Diagnosis [id number] ?Location: 3T The signing pathologist has (i) [...] AM EST Alirio Esparza MD PATHOLOGY/[place] [address] * Specimen to Pathology (surgical or derm) (09/21/2016 9:09 AM EST) AP Specimen 09/21/2016 9:09 AM EST 09/21/2016 9:09 AM EST Narrative [facility] - 09/21/2016 9:09 AM EST Specimen requisition ordered. ??Separate Pathology report to follow Alirio Esparza MD PATHOLOGY/CYTOLOGY ORDERABLES [facility] [place] [address] * (ABNORMAL) BLOOD GAS 2 ARTERIAL (09/21/2016 [...] TEST ORDERABLES [facility] [place] [address] * (ABNORMAL) BLOOD GAS 2 ARTERIAL (09/21/2016 [...] [facility] PF Ratio Art 298 [facility] Temp Art 35.6 Celsius [facility] Blood specimen (specimen) 09/21/2016 8:18 AM EST 09/21/2016 8:18 AM EST Alirio Esparza MD POINT OF CARE TEST ORDERABLES [facility] [place] [address] * Prepare RBC (09/21/2016 7:05 AM EST) Dispensed? Yes [facility] Blood specimen (specimen) 09/21/2016 7:05 AM EST 09/21/2016 7:02 AM EST Alirio Esparza MD BLOOD BANK PRODUCT ORDERABLES Performing Organization Address City/[facility]/ZIP Co de Phone Number [facility] [place] [address] * POCT Glucose (09/21/2016 6:42 AM EST) Glucose, POC 104 65 - 199 mg/dL [facility] Comment: Supplemental ranges: <140 mg/dL before meals <180 mg/dL all other times of the day Blood specimen (specimen) 09/21/2016 6:42 AM EST 09/21/2016 6:42 AM EST Alirio Esparza MD POINT OF C[place] [address] documented in this encounter Visit Diagnoses Not [...] dose on Wed09/21/16 at 1230, Until Discontinued, Leroy teeth, Routine Given 09/25/2016 9:40 AM EST [...] at 0600)1600 (Due - Provider: Kendall Martínez [facility]) aspirin chewable tablet 81 mg(Linked Group 1) [...] dose on Wed09/21/16 at 1230, Until Discontinued, Leroy teeth, Routine 0900 (Not Given - Provider: [...] Hill RN) 0941 (Given - Provider: Joselyn aCceres RN) furosemide (LASIX) tablet 20 mg 20 [...] earlier in shift)1100 (Given - Provider: Marek Barnse RN)2044 (Given - Provider: Alie Whitfield RN) [...] Routine documented in this encounter Care Teams Blue Leather Sorter Relationship Specialty Start Date End Date Deborah Quiroga APRN PCP - General Family Medicine 03/24/16 02/04/23 documented as of this encounter
--- OUTSIDE RECORDS SUMMARY | 2024-04-27 15:05 | XMS_ITS | Encounter Summary ---
Author Organization [facility] Address [facility] [place] [address] Care Team Providers Care Psychiatry Resident Name Role Phone Deborah Quiroga ANURAG Primary Care Provider [phone] Encounter Details Date Type Department Care Team (Late st Contact Info) Description 09/17/2016 External Results Hematology [place] [phone] Alexandrea Greenwood RN Neutropenia, unspecified type Social [...] AM EDT Appointment Hematology [place] [phone] 05/12/2024 10:00 AM EDT Office Visit Hematology [place] [phone] Markel Borjas MD [facility] [place] [address] 03/01/2025 4:15 PM EDT Office Visit Dermatology at [address] [address] Marek Bonilla MD [address], [place] [address] documented as of this encounter Procedures Procedure [...] type documented in this encounter Care Teams Psychiatry Resident Relationship Specialty Start Date End Date Deborah Quiroga APRN PCP - General Family Medicine 03/24/16 02/04/23 documented as of this encounter
--- OUTSIDE RECORDS SUMMARY | 2024-04-27 15:05 | XMS_ITS | Encounter Summary ---
[place] [address] Care Team Providers Care Solar Energy Specialist Name Role Phone Deborah Quiroga APRN Primary Care Provider [phone] Reason for Visit * Reason Onset Date Comments Pre Procedure Call 06/18/2016 Encounter Details Date Type Department Care Team (Late st Contact Info) Description 06/18/2016 Telephone Hematology [place] [phone] Alexandrea Greenwood RN Pre Procedure Call Social [...] Appointment Hematology [place] [phone] 05/12/2024 10:00 AM EDT Office Visit Hematology [place] [address] Markel Borjas MD [facility] [address] HEMATOLOGY [place] [address] 03/01/2025 4:15 PM EDT Office Visit Dermatology at [place] [address] [place] [address] Marek Bonilla MD [address] [place] [address] documented as of this encounter Visit Diagnoses Not on filedocumented in this encounter Care Teams Solar Energy Specialist Relationship Specialty Start Date End Date Deborah Quiroga, MEMBERSHIP MANAGER PCP - General Family Medicine 03/24/16 02/04/23 documented as of this encounter
--- OUTSIDE RECORDS SUMMARY | 2024-04-27 15:05 | XMS_ITS | Encounter Summary ---
[place] [address] Care Team Providers Care Die Try Out Worker Stamping Name Role Phone Deborah Quiroga ANURAG Primary Care Provider [phone] Reason for Visit * Reason Onset Date Comments Medical Care Coordination 07/31/2016 Encounter Details Date Type Department Care Team (Late st Contact Info) Description 07/31/2016 Telephone Hematology [place] [phone] Alexandrea Greenwood RN Medical Care Coordination Social [...] 08/04/15 RN spoke with Aydee of the [facility] lab who states they can draw pt's cbc on 08/04/15, RN faxed lab req to [phone] at Aydee's request. RN instructed pt on Dr. Borjas's direction above. Pt verbalized understanding. documented in this encounter Plan of Treatment Upcoming Encounters Date Type Department Care Team (Late st Contact Info) Description 05/12/2024 9:00 AM EDT Appointment Hematology [place] [address] 05/12/2024 10:00 AM EDT Office Visit Hematology [place] [address] Markel Borjas MD [facility] [address] [place] [address] 03/01/2025 4:15 PM EDT Office Visit Dermatology at [place] [address] [place] [phone] Marek Bonilla MD [address], [place] [address] documented as of this encounter Visit Diagnoses Not on filedocumented in this encounter Care Teams Die Try Out Worker Stamping Relationship Specialty Start Date End Date Deborah Quiroga, CUSTOMER SERVICE REP PCP - General Family Medicine 03/24/16 02/04/23 documented as of this encounter
--- OUTSIDE RECORDS SUMMARY | 2024-04-27 15:05 | XMS_ITS | Encounter Summary ---
Author Organization [facility] [place] [address] Care Team Providers Care Software Tools Developer Name Role Phone Deborah Quiroga APRN Primary Care Provider [phone] Encounter Details Date Type Department Care Team (Late st Contact Info) Description 08/18/2016 4:20 PM EST Clinical [place] [phone] Social History Tobacco Use Types Packs/Day Years [...] AM EDT Appointment Hematology [place] [address] 05/12/2024 10:00 AM EDT Office Visit [place]ematology [place] [address] Markel Borjas MD [facility] [address] [place] [address] 03/01/2025 4:15 PM EDT Office Visit Dermatology at [place] [address] [place] [address] Marek Bonilla MD [address] [facility] [facility], [place] [address] documented as of this encounter Visit Diagnoses Not on filedocumented in this encounter Care Teams Software Tools Developer Relationship Specialty Start Date End Date Deborah Quiroga APRN PCP - General Family Medicine 03/24/16 02/04/23 documented as of this encounter
--- OUTSIDE RECORDS SUMMARY | 2024-04-27 15:05 | XMS_ITS | Encounter Summary ---
[place] [address] Care Team Providers Care Floor Press Operator Name Role Phone Junaid Deborah Shields APRN Primary Care Provider [phone] Reason for Visit * Auth/Cert Specialty Diagnoses / Procedures Referred By Crispin t Referred To Contact Diagnoses Aortic stenosis Procedures PRO REPLACE AORT VALV, PROSTH VALV @REPLACE AORTIC VALVE, OPEN, W\CPB, W\PROSTHETIC VALVE (WRVU 41.32) Referral ID Status Reason Start Date Expiration Date Visits Re quested Visits Authorized [id number] 1 1 Encounter Details Date Type Department Care Team (Late st Contact Info) Description 09/21/2016 7:25 AM EST Anesthesia Event [place] [address] Luis Enrique Quarles MD [facility] [place] [address] Henrik Cooper MD [facility] [place] [address] Anesthesia Record Procedure Summary Procedure Name Responsible [...] 0819 Sternotomy 0844 CV Bypass init 1009 Medical Office Technologist 1014 An Clamp Remove 1031 CP Bypass [...] Tube 09/21/16 (#28 angled chest tube to [place]: left: pericardial); Left; 09/22/16; 1119 09/21/16 0000 by Toshia Alejandre RN 09/22/16 1119 by Vero Bonilla RN Chest Tube 09/21/16 (#28 straig ht chest tube to [place]; right: mediastinal'); Right; mediastinum; 09/22/16; 1118 09/21/16 0000 by Toshia Alejandre RN 09/22/16 1118 by Vero Bonilla RN (RETIRED) Peripheral IV Line - Single Lumen 09/21/16; 0648; metacarpal vein (top of hand), left; fmss-jyz-[id number] catheter system; 20 gauge; valdo Arteaga; 09/23/16; [...] Cooper MD - 09/21/2016 6:50 PM EST [facility] Department of Anesthesiology Post-procedure Note Patient: Purnima Thacker Procedure Summary Date Anesthesia Start Anesthesia Stop Room / Location 09/21/16 07 1152 [facility] OR 16 / [facility] MAIN OR Procedure Diagnosis Surgeon Responsible Provider @REPLACE AORTIC VALVE, OPEN, W\CPB, W\PROSTHETIC VALVE (WRVU 41.32) (N/A Chest); @AORTOPLASTY FOR SUPRAVALVULAR STENOSIS (WRVU 29.33) (N/A Chest) () Alirio Francisco MD Clark, Jeffrey A, MD All Anesthesia Providers: Anesthesiologist: Luis Enrique Quarles MD Tool And Equipment Rental Clerk: Henrik Cooper MD Last (1hr) Vitals: BP [...] AM EDT Appointment Hematology [place] [address] 05/12/2024 10:00 AM EDT Office Visit Hematology [place] [address] Markel Borjas MD [facility] [address] HEMATOLOGY [place] [address] 03/01/2025 4:15 PM EDT Office Visit Dermatology at [place] [address] [place] [phone] Marek Bonilla MD [address] [place] [address] documented as of this encounter Visit Diagnoses [...] mg documented in this encounter Care Teams Floor Press Operator Relationship Specialty Start Date End Date Deborah Quiroga APRN PCP - General Family Medicine 03/24/16 02/04/23 documented as of this encounter
--- OUTSIDE RECORDS SUMMARY | 2024-04-27 15:05 | XMS_ITS | Encounter Summary ---
[place] [address] Care Team Providers Care Camera Engineer Name Role Phone Deborah Quiroga ANURAG Primary Care Provider [phone] Reason for Visit * Reason Onset Date Comments Medical Care Coordination 07/17/2016 Encounter Details Date Type Department Care Team ([facility] Contact Info) Description 07/17/2016 Telephone [place] [address] Alexandrea Greenwood RN Medical Care Coordination Social [...] 07/17/2016 12:07 PM EST Message received from assistant secretary: Injection/Infusion Referral Call placed to [phone]). Spoke w/ Pasquale. Services to be provided for pt are: Labs @ 10am ([facility]) & Neulasta @ 11am on 07/20/16, CBC only on 07/30/16 Pasquale confirmed they would provide services to pt and [place] [facility] [place] to call for appt info. Pt demographics, office note, med list and orders faxed to [facility] & [facility] documented in this encounter Plan of Treatment Upcoming Encounters Date Type Department Care Team (Late st Contact Info) Description 05/12/2024 9:00 AM EDT Appointment [place] [address] 05/12/2024 10:00 AM EDT Office Visit [place] [address] Markel Borjas MD [facility] [address] HEMATOLOGY [place] [address] 03/01/2025 4:15 PM EDT Office Visit Dermatology at [place] [address] [place] [address] Marek Bonilla MD [address], [place] [address] documented as of this encounter Visit Diagnoses Not on filedocumented in this encounter Care Teams Camera Engineer Relationship Specialty Start Date End Date Deborah Quiroga APRN PCP - General Family Medicine 03/24/16 02/04/23 documented as of this encounter
--- OUTSIDE RECORDS SUMMARY | 2024-04-27 15:05 | XMS_ITS | Encounter Summary ---
Author Organization [facility] Address [facility] [place] [address] Care Team Providers Care Dimensional Integration Engineer Name Role Phone Deborah Quiroga ANURAG Primary Care Provider [phone] Encounter Details Date Type Department Care Team (Late st Contact Info) Description 07/31/2016 Orders Only Hematology [place] [address] Alexandrea Greenwood RN Neutropenia, unspecified type Social [...] AM EDT Appointment Hematology [place] [address] 05/12/2024 10:00 AM EDT Office Visit Hematology [place] [address] Markel Borjas MD [facility] HEMATOLOGY [place] [address] 03/01/2025 4:15 PM EDT Office Visit Dermatology at [address] [address] Marek Bonilla MD [address], [place] [address] documented as of this encounter Results * [...] type documented in this encounter Care Teams Dimensional Integration Engineer Relationship Specialty Start Date End Date Deborah Quiroga APRN PCP - General Family Medicine 03/24/16 02/04/23 documented as of this encounter
--- OUTSIDE RECORDS SUMMARY | 2024-04-27 15:05 | XMS_ITS | Encounter Summary ---
Author Organization [facility] Address [facility] [place] [address] Care Team Providers Care Production Stage Manager Name Role Phone Deborah Quiroga APRN Primary Care Provider Encounter Details Date Type Department Care Team (Late st Contact Info) Description 07/17/2016 9:00 AM EST Office Visit Hematology [place] [address] Markel Borjas MD [facility] [address] [place] [address] Neutropenia, unspecified type Social History Tobacco Use [...] TOUCH PREP, CLOT SECTION, CORE ??BIOPSY); [OSR# [id number], COLLECTED 06/23/2016, 19 SLIDES]: ?1. 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 Labs will be drawn at [facility] next week Imaging As above - [...] leukopenia. Will consi kanwal talking to pt's emergency veterinary assistant about a switch from ACEI to ARB [...] the original note were not included. N [facility] [address] Date: 07/17/16 Patient Name: Purnima Thacker : [...] 07/20/2016 Signature: Markel Borjas MD beeper # [id number] documented in this encounter Plan of Treatment Upcoming Encounters Date Type Department Care Team (Late st Contact Info) Description 05/12/2024 9:00 AM EDT Appointment Hematology [place] [address] 05/12/2024 10:00 AM EDT Office Visit [place]ematology [place] [address] Markel Borjas MD [facility] [address] [place] [address] 03/01/2025 4:15 PM EDT Office Visit Dermatology at [address] [place] [address] Marek Bonilla MD [address], [place] DERMATOLOGY [place], [place] [address] documented as of this encounter Results * [...] MD HEMATOLOGY ORDERAB LES Performing Organization Address City/[facility]/ZIP Co de Phone Number EXTERNAL LAB * Mononucleosis Screen (07/20/2016 10:30 AM EST) [facility] Mononucleosis Screen neg neg - neg EXTERNAL LAB Blood specimen (specimen) 07/20/2016 10:30 AM EST Markel Borjas MD IMMUNOLOGY ORDERAB LES Performing Organization Address City/[facility]/ZIP Co de Phone Number EXTERNAL LAB * Copper, serum (07/20/2016 10:30 AM EST) Pathologist [facility] Copper (NOVEMBER) 1.09 0.75 - 1.45 EXTERNAL LAB Blood specimen (specimen) 07/20/2016 10:30 AM EST Markel Borjas MD LAB SEND OUT ORDER JODIE Performing Organization Address City/[facility]/ZIP Co de Phone Number EXTERNAL LAB * CMV PCR, Quantitative (07/20/2016 10:30 AM EST) [facility] CMV PCR,Quantitati ve undetected EXTERNAL LAB Blood [...] MD HEMATOLOGY ORDERAB LES Performing Organization Address City/[facility] Co de Phone Number EXTERNAL LAB documented in this encounter Visit Diagnoses Diagnosis Neutropenia, unspecified type documented in this encounter Care Teams Production Stage Manager Relationship Specialty Start Date End Date Deborah Quiroga APRN PCP - General Family Medicine 03/24/16 02/04/23 documented as of this encounter
--- OUTSIDE RECORDS SUMMARY | 2024-04-27 15:05 | XMS_ITS | Encounter Summary ---
[place] [address] Care Team Providers Care Truck Body Builder Apprentice Name Role Phone Deborah Quiroga ANURAG Primary Care Provider [phone] Encounter Details Date Type Department Care Team (Late st Contact Info) Description 09/11/2016 Orders Only Hematology [place] [address] Alexandrea Greenwood RN Social History [...] the original note were not included. N [facility] [address] Date: 09/11/16 Patient Name: Purnima Thacker : 1955 Diagnosis: Neutropenia Referral to [site]: [facility] Orders: ? Growth factor: [x] Neulasta 6mg SQ injection x 1 on 09/16/16 Signature: Markel Borjas MD beeper # [id number] Co-signature [if needed]: documented in this encounter Plan of Treatment Upcoming Encounters Date Type Department Care Team (Late st Contact Info) Description 05/12/2024 9:00 AM EDT Appointment Hematology [place] [address] 05/12/2024 10:00 AM EDT Office Visit Hematology [place] [address] Markel Borjas MD [facility] [address] [place] [address] 03/01/2025 4:15 PM EDT Office Visit Dermatology at [place] [address] [place] [address] Marek Bonilla MD [address], [place] [address] documented as of this encounter Procedures Procedure Name Priority Date/Time Associated Diagnosis Comments TRANSESOPHAGEAL ECHOCARDIOGRAM (GAVINO) Routine 09/22/2016 documented in this encounter Results * Transesophageal Echocardiogram (GAVINO) (09/22/2016) Anatomical Region Laterality Modality Other 09/22/2016 Narrative 09/22/2016 8:30 AM EST Procedure: ?Transesophageal Echocardiogram Patient: ?ANDREW ECHOLS M ? (Age): 1955(61y) Med Rec#: ? [id number] ?Sex: ?M ? Site Loc: ? [facility] ?Ht / Wt: ??(cm)/ (kg) ? Pt. Loc: ?OR ? Study Date: ?? 09/21/2016 ?Pt. Type: Tape: ? Referring: Alirio Francisco Reading: Henrik Yarbrough ([id number]) Supervisor Contingents: Jacobo Patel ([id number]) Interpreting Fellow: Jacobo Patel ([id number]) Diagnosis: *Aortic valve disorders (424.1) CPT Codes: *Echo GAVINO Full (77128) Indication: ?? AVR for severe Rhythm: ? [...] ? Mid-Inferior ?Normal ? Mid-Inferoseptal ?Normal ? [place]-Septal ? Normal ? [place]-Anterior ? Normal ? [place]-Lateral ?Normal ? [place]-Inferior ? Normal ? [place]-Tip ?Normal ? This report has been electronically signed by: Henrik Yarbrough M.D. ? 09/22/2016 08:30:41 Images reviewed and interpretation verified [facility] Cardiac Ultrasound Laboratory Procedure Note Henrik Yarbrough MD - 09/22/2016 Procedure: Transesophageal Echocardiogram Patient: ANDREW Mejias (Age): 1955(61y) Med Rec#: [id number] Sex: M Site Loc: [facility] Ht / Wt: (cm)/ (kg) Pt. Loc: OR Study Date: 09/21/2016 Pt. Type: Tape: Referring: Alirio Francisco Reading: Henrik Yarbrough ([id number]) Supervisor Contingents: Jacobo Patel ([id number]) Interpreting Fellow: Jacobo Patel ([id number]) Diagnosis: *Aortic valve disorders (424.1) CPT Codes: *Echo GAVINO Full (65116) Indication: AVR for severe Rhythm: Sinus SUMMARY: [...] Normal Mid-Posterolateral Normal Mid-Inferior Normal Mid-Inferoseptal Normal [place]-Septal Normal [place]-Anterior Normal [place]-Lateral Normal [place]-Inferior Normal [place]-Tip Normal This report has been electronically signed by: Henrik Yarbrough M.D. 09/22/2016 08:30:41 Images reviewed and interpretation verified [facility] Cardiac Ultrasound Laboratory Unknown ECHO ORDERABLES documented in this encounter Visit Diagnoses Not on filedocumented in this encounter Care Teams Truck Body Builder Apprentice Relationship Specialty Start Date End Date Deborah Quiroga APRN PCP - General Family Medicine 03/24/16 02/04/23 documented as of this encounter
--- OUTSIDE RECORDS SUMMARY | 2024-04-27 15:05 | XMS_ITS | Encounter Summary ---
Author Organization [facility] Address [facility] [place] [address] Care Team Providers Care Sheet Finisher Name Role Phone Ashley Quirogan Cornelius ANURAG Primary Care Provider [phone] Encounter Details Date Type Department Care Team (Late st Contact Info) Description 08/11/2016 Telephone Hematology [place] [address] Markel Borjas MD [facility] [address] [place] [address] Social History Tobacco Use Types Packs/Day Years [...] AM EDT Appointment Hematology [place] [address] 05/12/2024 10:00 AM EDT Office Visit Hematology [place] [address] Markel Borjas MD [facility] [address] [place] [address] 03/01/2025 4:15 PM EDT Office Visit Dermatology at [place] [address] [place] [address] Marek Bonilla MD [address], [place] [address] documented as of this encounter Visit Diagnoses Not on filedocumented in this encounter Care Teams Sheet Finisher Relationship Specialty Start Date End Date Deborah Quiroga APRN PCP - General Family Medicine 03/24/16 02/04/23 documented as of this encounter
--- OUTSIDE RECORDS SUMMARY | 2024-04-27 15:05 | XMS_ITS | Encounter Summary ---
[place] [address] Care Team Providers Care Gambling Monitor Name Role Phone Ashley Quirogan Cornelius ANURAG Primary Care Provider [phone] Reason for Visit * Reason Onset Date Comments Medical Care Coordination 09/14/2016 Encounter Details Date Type Department Care Team (Late st Contact Info) Description 09/14/2016 Telephone Hematology [place] [address] Alexandrea Greenwood RN Medical Care Coordination Social [...] 09/14/2016 9:10 AM EST Message received from special education secretary: Injection/Infusion Referral Call placed to [facility] Infusion Room Spoke charis Bragg. Services to be provided for pt are: [place] 09/16/16 Mahsa confirmed they would provide services to pt and would contact with appointment time. Pt aware to expect the phone call ??orders faxed to [phone]). documented in this encounter Plan of Treatment Upcoming Encounters Date Type Department Care Team (Late st Contact Info) Description 05/12/2024 9:00 AM EDT Appointment Hematology [place] [address] 05/12/2024 10:00 AM EDT Office Visit Hematology [place] [address] Markel Borjas MD [facility] [address] HEMATOLOGY [place] [address] 03/01/2025 4:15 PM EDT Office Visit Dermatology at [place] [address] [address] Marek Bonilla MD [address], [place] [address] documented as of this encounter Visit Diagnoses Not on filedocumented in this encounter Care Teams Gambling Monitor Relationship Specialty Start Date End Date Deborah Quiroga APRN PCP - General Family Medicine 03/24/16 02/04/23 documented as of this encounter
--- OUTSIDE RECORDS SUMMARY | 2024-04-27 15:05 | XMS_ITS | Encounter Summary ---
Author Organization [facility] [place] [address] Care Team Providers Care Costuming Supervisor Name Role Phone Ashley Quirogazac Shields APRN Primary Care Provider [phone] Encounter Details Date Type Department Care Team (Late st Contact Info) Description 07/03/2016 External Results Hematology [place] [address] Matthew Cervantes, DO [address] [place] [address] Social History Tobacco Use Types Packs/Day Years [...] AM EDT Appointment Hematology [place] [address] 05/12/2024 10:00 AM EDT Office Visit Hematology [place] [address] Markel Borjas MD [facility] [address] HEMATOLOGY [place] [address] 03/01/2025 4:15 PM EDT Office Visit Dermatology at [place] [address] [place] [address] Marek Bonilla MD [address], [place] [address] documented as of this encounter Procedures Procedure Name Priority Date/Time Associated Diagnosis Comments BONE MARROW ASPIRATION PERFO RMED WITH BONE MARRROW BIOPSY Routine 06/28/2016 documented in this encounter Results * BONE MARROW ASPIRATION PREFORMED WITH BONE MARRROW BIOPSY (06/28/2016) Matthew Cervantes DO GENERAL SURGI DANIEL ORDERABLES documented in this encounter Visit Diagnoses Not on filedocumented in this encounter Care Teams Costuming Supervisor Relationship Specialty Start Date End Date Deborah Quiroga APRN PCP - General Family Medicine 03/24/16 02/04/23 documented as of this encounter
--- OUTSIDE RECORDS SUMMARY | 2024-04-27 15:05 | XMS_ITS | Encounter Summary ---
Author Organization [facility] Address [facility] [place] [address] Care Team Providers Care Photographic Restorer Name Role Phone Deborah Quiroga ANURAG Primary Care Provider [phone] Encounter Details Date Type Department Care Team (Late st Contact Info) Description 08/18/2016 Orders Only [place] [address] Alirio Esparza MD Aortic valve stenosis, unspecified [...] EDT Appointment Hematology [place] [address] 05/12/2024 10:00 AM EDT Office Visit Hematology [place] [address] [facility] [address] [place] [address] 03/01/2025 4:15 PM EDT Office Visit Dermatology at [address] [address] Marek Bonilla MD [address], [place] [address] documented as of this encounter Results * Basic Metabolic Panel (non-fasting) (08/18/2016 4:50 PM EST) Glucose 82 65 - 199 mg/dL [facility] Comment:Diabetes: >=200 mg/d L plus symptoms Blood Urea Nitrogen 12 8 - 18 mg/dL [facility] Creatinine 0.87 0.70 - 1.20 mg/dL [facility] Comment: Please note that the pediatric reference intervals supplied above were not validated at [facility]. Results from pediatric patients should be interpreted in conjunction to the patient's age, height and muscle mass. Sodium 142 135 - 145 mmol/L [facility] Potassium 3.8 3.5 - 5.0 mmol/L [facility] Comment: Please note: ??Patients with WBC >100,000 may have falsely elevated Potassium levels. ??For accurate Potassium quantification in these patients send serum separator tube (gold top) for subsequent determinations. ??Contact the Clinical Chemistry Laboratory if there are any questions. Chloride 102 98 - 107 mmol/L [facility] Carbon Dioxide 26 22 - 31 mmol/L [facility] Anion Gap 14 5 - 15 mmol/L [facility] Calcium 9.7 8.5 - 10.5 mg/dL [facility] [...] the following links into your internet browser. [email or web address] Blood specimen (specimen) 08/18/2016 4:50 PM EST 08/18/2016 5:03 PM EST Narrative Resulting Agency Comment Spec In Lab Alirio Esparza MD CHEMISTRY ORDERABLE S [facility] [place] [address] documented in this encounter Visit Diagnoses Diagnosis Aortic valve stenosis, unspecified etiology documented in this encounter Care Teams Photographic Restorer Relationship Specialty Start Date End Date Deborah Quiroga, ANURAG PCP - General Family Medicine 03/24/16 02/04/23 documented as of this encounter
--- OUTSIDE RECORDS SUMMARY | 2024-04-27 15:05 | XMS_ITS | Encounter Summary ---
Author Organization [facility] [place] [address] Care Team Providers Care Freezer Laboratory Technician Name Role Phone Deborah Quiroga ANURAG Primary Care Provider [phone] Encounter Details Date Type Department Care Team (Late st Contact Info) Description 06/16/2016 Orders Only Hematology [place] [address] Nitesh Pina Jr., MD [facility] [address] HEMATOLOGY [place] [address] Cyclical neutropenia Social History Tobacco Use Types [...] AM EDT Appointment Hematology [place] [address] 05/12/2024 10:00 AM EDT Office Visit Hematology [place] [address] Markel Borjas MD [facility] [address] HEMATOLOGY [place] [address] 03/01/2025 4:15 PM EDT Office Visit Dermatology at [place] [address] [place] [address] Marek Bonilla MD [address], [place] [address] documented as of this encounter Visit Diagnoses Diagnosis Cyclical neutropenia Cyclic neutropenia documented in this encounter Care Teams Freezer Laboratory Technician Relationship Specialty Start Date End Date Deborah Quiroga APRN PCP - General Family Medicine 03/24/16 02/04/23 documented as of this encounter
--- OUTSIDE RECORDS SUMMARY | 2024-04-27 15:05 | XMS_ITS | Encounter Summary ---
Author Organization [facility] Address [facility] [place] [address] Care Team Providers Care Hot Packer Name Role Phone Deborah Quiroga ANURAG Primary Care Provider [phone] Encounter Details Date Type Department Care Team (Late st Contact Info) Description 07/31/2016 External Results Hematology [place] [address] Alexandrea Greenwood RN Neutropenia, unspecified type Social [...] AM EDT Appointment Hematology [place] [address] 05/12/2024 10:00 AM EDT Office Visit [place] [address] Markel Borjas MD [facility] [place] [address] 03/01/2025 4:15 PM EDT Office Visit Dermatology at [address] [address] Marek Bonilla MD [address] [place] [address] documented as of this encounter Procedures Procedure [...] type documented in this encounter Care Teams Hot Packer Relationship Specialty Start Date End Date Deborah Quiroga APRN PCP - General Family Medicine 03/24/16 02/04/23 documented as of this encounter
--- OUTSIDE RECORDS SUMMARY | 2024-04-27 15:05 | XMS_ITS | Encounter Summary ---
Author Organization [facility] Address [facility] [place] [address] Care Team Providers Care Print Inspector Name Role Phone Deborah Quiroga APRN Primary Care Provider [phone] Reason for Visit * Reason Comments Schedule Office Case * Consultation (Routine) - Closed Specialty Diagnoses / Procedures Referred By Contac t Referred To Contact Hematology and Oncology Diagnoses Leukopenia Neutropenia LEUKOPENIA W/NEUTROPENIA Procedures TC PEGFILGRASTIM, 6MG, INJECTION LEUKOPENIA W/NEUTROPENIA Alirio Esparza MD [facility] CARDIOTH[facility]ACIC [place] [address] Mario Alberto Ramos Jr., MD [facility] DR HEMATOLOGY [place] [address] Referral ID Status Reason Start Date Expiration Date V isits Requested Visits Authorized [id number] Closed Consult, Test & Treat 07/17/2016 07/17/2017 1 1 Encounter Details Date Type Department Care Team (Late st Contact Info) Description 06/09/2016 3:00 PM EST Office Visit Hematology [place] [address] Mario Alberto Ramos Jr., MD [facility] HEMATOLOGY [place] [address] Cyclical neutropenia Social History Tobacco Use Types [...] 06/09/2016 3:00 PM EST Hematology Outpatient Clinic [facility] Hematology Outpatient Consult Note CC: [...] Unknown See Comment Flow Cytometry Report Unknown [id number] ... HematoPathology: Flow Cytometry DIAGNOSIS 1. No [...] AM EDT Appointment Hematology [place] [address] 05/12/2024 10:00 AM EDT Office Visit Hematology [place] [address] Markel Borjas MD [facility] DR HEMATOLOGY [place] [address] 03/01/2025 4:15 PM EDT Office Visit Dermatology at [place] [address] [place] [phone] Marek Bonilla MD [address], [place] [address] documented as of this encounter Procedures Procedure [...] (06/09/2016 4:53 PM EST) Flow Cytometry Report [id number] ?Location: 3K The signing pathologist has (i) [...] the Clinical Flow Cytometry Laboratory at [facility]. It has not been cleared [...] high complexity clinical laboratory testing. SPECIMEN PROCESSING [id number] Cells for immunophenotypic analysis were derived from [...] MD PATHOLOGY/CYTOLOGY O RDERABLES Performing Organization Address City/[facility]/ZIP Co de Phone Number [facility] [place] [address] * Scan, Peripheral Blood (06/09/2016 4:53 PM EST) Plat estimate Normal [facility] RBC Morphology Normal [facility] Blood specimen (specimen) 06/09/2016 4:53 PM EST 06/09/2016 5:00 PM EST Narrative Resulting Agency Comment Spec In Lab Mario Alberto Ramos Jr., MD HEMATOLOGY ORDERABLE S Performing Organization Address City/[facility]/ZIP Co de Phone Number [facility] [place] [address] * (ABNORMAL) Differential, Automated (06/09/2016 4:53 PM EST) Pathologist [facility] Neutrophil % 27.7 % [facility] Neutrophil Absolute 0.48(Crit ical) 1.70 - 6.10 x10(3)/mc L [facility] Comment: Matches Previous Results.. This result has been called to NOT CALLED by Jesusita Argueta on 06 09 2016 at 1817, and has not been read back. MATCHES PREVIOUS RESULTS Lymph % 57.2 % [facility] Lymphocytes Abs 1.0 0.9 - 3.2 x10(3)/ L [facility] Monocyte % 13.3 % [facility] Monocyte Abs 0.2(L) 0.3 - 0.9 x10(3)/[facility] Eos % 0.6 % [facility] Eosinophils Abs 0.0 0.0 - 0.4 x10(3)/[facility] Basophil % 1.2 % [facility] Baso Absolute 0.0 0.0 - 0.1 x10(3)/[facility] Immature Gran % 0.00 % [facility] Comment: Immature granulocytes(IG's)percentage and absolute count will include metamyelocytes, myelocytes, and promyelocytes. Blood smears from CBCs yielding IG's will be scanned manually for concordance. If this scan disagrees with the automated IG or if promyelocytes are noted, a manual differential will be performed. Immature Gran Absolute 0.00 0.00 - 0.04 x10(3)/[facility] Blood specimen (specimen) 06/09/2016 4:53 PM EST 06/09/2016 5:00 PM EST Narrative Resulting Agency Comment Spec In Lab Mario Alberto Ramos Jr., MD HEMATOLOGY ORDERABLE S Performing Organization Address City/State/[facility] Co de Phone Number [facility] [place] [address] * (ABNORMAL) Hemogram (06/09/2016 4:53 PM EST) White Blood Cell 1.7(Criti gabrielle) 4.0 - 9.5 x10(3)/[facility] Red Blood Cell 3.92(L) 4.00 - 5.21 x10(6)/[facility] Hemoglobin 12.4 11.7 - 15.5 [...] [facility] NRBC% auto 0.0 % [facility] NRBC Absolute 0.000 0.000 - 0.000 x10(3)/mc L [facility] Blood specimen (specimen) 06/09/2016 4:53 PM EST 06/09/2016 5:00 PM EST Narrative Resulting Agency Comment Spec In Lab Mario Alberto Ramos Jr., MD HEMATOLOGY ORDERABLE S Performing Organization Address City/[facility]/ZIP Co de Phone Number [facility] [place] [address] * Immunophenotyping Flow Cytometry (06/09/2016 4:53 PM EST) Immunophenotyping Flow See Comment [facility] Comment: When completed by the Pathologist, the Flow Cytometry Report ([id number]) will display under the Pathology Results section within [facility]. Specimen of unknown material (specimen) 06/09/2016 4:53 PM EST 06/09/2016 5:00 PM EST Narrative Resulting Agency Comment Spec In Lab Mario Alberto Ramos Jr., MD HEMATOLOGY ORDERABLE S Performing Organization Address City/[facility]/ZIP Co de Phone Number [facility] [place] [address] documented in this encounter Visit Diagnoses Diagnosis Cyclical neutropenia Cyclic neutropenia documented in this encounter Care Teams Print Inspector Relationship Specialty Start Date End Date Deborah Quiroga APRN PCP - General Family Medicine 03/24/16 02/04/23 documented as of this encounter
--- OUTSIDE RECORDS SUMMARY | 2024-04-27 15:05 | XMS_ITS | Encounter Summary ---
Author Organization [facility] Address [facility] [place] [address] Care Team Providers Care Cold Working Inspector Name Role Phone Ashley Quirogan Cornelius ANURAG Primary Care Provider [phone] Encounter Details Date Type Department Care Team (Late st Contact Info) Description 07/13/2016 External [place] [address] Provider, Scanning Social History Tobacco Use Types [...] AM EDT Appointment Hematology [place] [address] 05/12/2024 10:00 AM EDT Office Visit Hematology [place] [address] Markel Borjas MD [facility] [address] [place] [address] 03/01/2025 4:15 PM EDT Office Visit Dermatology at [place] [address] [place] [phone] Marek Bonilla MD [address], [place] [address] documented as of this encounter Procedures Procedure Name Priority Date/Time Associated Diagnosis Comments SURGICAL PATHOLOGY SCAN Routine 07/13/2016 documented in this encounter Results * Scan Doc: Surgical Pathology (07/13/2016) Nitesh Pina Jr., MD MEDIA MGR SCAN EXT O RDR/RSLT documented in this encounter Visit Diagnoses Not on filedocumented in this encounter Care Teams Cold Working Inspector Relationship Specialty Start Date End Date Deborah Quiroga APRN PCP - General Family Medicine 03/24/16 02/04/23 documented as of this encounter
--- OUTSIDE RECORDS SUMMARY | 2024-04-27 15:05 | XMS_ITS | Encounter Summary ---
Author Organization [facility] Address [facility] [place] [address] Care Team Providers Care Medical Safety Director Name Role Phone Deborah Quiroga ANURAG Primary Care Provider [phone] Encounter Details Date Type Department Care Team (Latest Contact Info) Description 08/18/2016 4:40 PM EST Laboratory [place] [address] Aortic valve stenosis, unspecified [...] EDT Appointment Hematology [place] [address] 05/12/2024 10:00 AM EDT Office Visit Hematology [place] [address] [facility] [address] HEMATOLOGY [place] [address] 03/01/2025 4:15 PM EDT Office Visit Dermatology at [address] [phone] Marek Bonilla MD [address] [place] [address] documented as of this encounter Procedures Procedure Name Priority Date/Time Associated Diagnosis Comments ABORH RECHECK STATUS Routine 08/18/2016 4:50 PM EST TYPE AND SCREEN, SDP (FUTURE SURGERY, [facility] SAME DAY PROGRAM [...] 4:50 PM EST) ABORH Type Recheck Completed [facility] Blood specimen (specimen) 08/18/2016 4:50 PM EST 08/18/2016 5:27 PM EST Narrative Resulting Agency Comment Spec In Lab Alirio Esparza MD [facility] [place] [facility] Organization Address City/State/ZIP Co de Phone Number [facility] [place] [address] * Antibody screen (08/18/2016 4:50 PM EST) Ab Screen Interp Negative [facility] Expires at 2359 on: 09/24/2016 [facility] Comment: Corrected from 09/17/16 12:00 [Unknown] on 09/09/16 02:32 by Shireen Treviño Blood specimen (specimen) 08/18/2016 4:50 PM EST 08/18/2016 5:11 PM EST Narrative Resulting Agency Comment Spec In Lab Alirio Esparza MD BLOOD BANK LAB [place] Performing Organization Address City/[facility]/ZIP Co de Phone Number [facility] [place] [address] * ABO/Rh Typing (08/18/2016 4:50 PM EST) ABORH Type B Pos [facility] Blood specimen (specimen) 08/18/2016 4:50 PM EST 08/18/2016 5:11 PM EST Narrative Resulting Agency Comment Spec In Lab Alirio Esparza MD BLOOD BANK LAB [place] Performing Organization Address [facility] Co de Phone Number [facility] [place] [address] * Basic Metabolic Panel (non-fasting) (08/18/2016 4:50 PM EST) [facility] Glucose 82 65 - 199 mg/dL [facility] [...] the following links into your internet browser. [email or web address] Blood specimen (specimen) 08/18/2016 4:50 PM EST 08/18/2016 5:03 PM EST Narrative Resulting Agency Comment Spec In Lab Alirio Esparza MD CHEMISTRY ORDERABLE S [facility] [place] [address] documented in this encounter Visit Diagnoses Diagnosis Aortic valve stenosis, unspecified etiology documented in this encounter Care Teams Medical Safety Director Relationship Specialty Start Date End Date Deborah Quiroga APRN PCP - General Family Medicine 03/24/16 02/04/23 documented as of this encounter
--- OUTSIDE RECORDS SUMMARY | 2024-04-27 15:05 | XMS_ITS | Encounter Summary ---
Author Organization [facility] Address [facility] [place] [address] Care Team Providers Care Potato Grader Name Role Phone Deborah Quiroga ANURAG Primary Care Provider [phone] Encounter Details Date Type Department Care Team (Late st Contact Info) Description 07/22/2016 External Results Hematology [place] [address] Alexandrea Greenwood RN Neutropenia, unspecified type Social [...] AM EDT Appointment Hematology [place] [address] 05/12/2024 10:00 AM EDT Office Visit [place]ematology [place] [address] Markel Borjas MD [facility] [place] [address] 03/01/2025 4:15 PM EDT Office Visit Dermatology at [address] [address] Marek Bonilla MD [address], [place] [address] documented as of this encounter Procedures Procedure [...] SEND OUT ORDER JODIE Performing Organization Address City/[facility]/ZIP Co de Phone Number EXTERNAL LAB * CMV PCR, Quantitative (07/20/2016 10:30 AM EST) CMV PCR,Quantitati ve undetected EXTERNAL LAB Blood specimen (specimen) 07/20/2016 10:30 AM EST Markel Borjas MD MOLECULAR ORDERABL ES Performing Organization Address City/[facility]/ZIP Co de Phone Number EXTERNAL [...] type documented in this encounter Care Teams Potato Grader Relationship Specialty Start Date End Date Deborah Quiroga, TARGET MAN PCP - General Family Medicine 03/24/16 02/04/23 documented as of this encounter
--- OUTSIDE RECORDS SUMMARY | 2024-04-27 15:05 | XMS_ITS | Encounter Summary ---
[place] [address] Care Team Providers Care Enterprise Systems Engineer Name Role Phone Ashley Quirogan Cornelius ANURAG Primary Care Provider [phone] Reason for Visit * Reason Onset Date Comments Medication Management 09/14/2016 Encounter Details Date Type Department Care Team (Late st Contact Info) Description 09/14/2016 Telephone Hematology [place] [address] Alexandrea Greenwood, echocardiograph tech Management Social History Tobacco Use Types Packs/Day [...] 09/14/2016 9:12 AM EST Message received from school secretary: Purnima called, asking for clarification on [...] EDT Appointment Hematology [place] [address] 05/12/2024 10:00 AM EDT Office Visit Hematology [place] [address] Markel Borjas MD [facility] [address] [place] [address] 03/01/2025 4:15 PM EDT Office Visit Dermatology at [place] [address] [place] [phone] Marek Bonilla MD [address] [place] [address] documented as of this encounter Visit Diagnoses Not on filedocumented in this encounter Care Teams Enterprise Systems Engineer Relationship Specialty Start Date End Date Deborah Quiroga APRN PCP - General Family Medicine 03/24/16 02/04/23 documented as of this encounter
--- OUTSIDE RECORDS SUMMARY | 2024-04-27 15:05 | XMS_ITS | Encounter Summary ---
Author Organization [facility] Address [facility] [place] [address] Care Team Providers Care Building Inspection Engineer Name Role Phone Junaid Deborah Shields APRN Primary Care Provider [phone] Encounter Details Date Type Department Care Team (Latest Contact Info) Description 06/19/2016 - 06/19/2016 11:59 PM EST Hospital Encounter Radiology Library at [facility] [place] [phone] Nitesh Pina Jr., MD [facility] [place]ATOLOG[place] [address] Pain Discharge Disposition: Home Social History Tobacco [...] AM EDT Appointment Hematology [place] [address] 05/12/2024 10:00 AM EDT Office Visit Hematology [place] [address] Markel Borjas MD [facility] DR [place]AT[place] [address] 03/01/2025 4:15 PM EDT Office Visit Dermatology at [place] [address] [place] [address] Marek Bonilla MD [address] [facility], [place] [address] documented as of this encounter Procedures Procedure [...] Jr., MD IMG FILM LIBRARY ORD ERABLES [place], [place] documented in this encounter Visit Diagnoses Diagnosis Pain Generalized pain documented in this encounter Care Teams Building Inspection Engineer Relationship Specialty Start Date End Date Deborah Quiroga, BRICK EXTRUDER OPERATOR PCP - General Family Medicine 03/24/16 02/04/23 documented as of this encounter
--- OUTSIDE RECORDS SUMMARY | 2024-04-27 15:06 | XMS_ITS | Encounter Summary ---
[place] [address] Care Team Providers Care Fish Tender Name Role Phone Ashley Quirogan Cornelius ANURAG Primary Care Provider [phone] Encounter Details Date Type Department Care Team (Late st Contact Info) Description 03/24/2016 Notes [place] [phone] Alfa Lua Social History Tobacco Use Types [...] assessments completed: Wadsworth Score: 6/6 IADL: 7/7 Risk Officer Strength Trials: 18.4, 15.0, 16.8 (right hand dominant) 5 meter walk test in seconds x3: 4.98, 4.88, 4.45 KCCQol: 98% Alfa Lua documented in this encounter Plan of Treatment Upcoming Encounters Date Type Department Care Team (Late st Contact Info) Description 05/12/2024 9:00 AM EDT Appointment Hematology [place] [address] 05/12/2024 10:00 AM EDT Office Visit Hematology [place] [address] Markel Borjas MD [facility] [address] [place] [address] 03/01/2025 4:15 PM EDT Office Visit Dermatology at [place] [address] [facility] [place] [phone] Marek Bonilla MD [address], [place] [address] documented as of this encounter Visit Diagnoses Not on filedocumented in this encounter Care Teams Fish Tender Relationship Specialty Start Date End Date Deborah Quiroga APRN PCP - General Family Medicine 03/24/16 02/04/23 documented as of this encounter
--- OUTSIDE RECORDS SUMMARY | 2024-04-27 15:06 | XMS_ITS | Encounter Summary ---
Author Organization [facility] [place] [address] Care Team Providers Care Audio Visual Tech Name Role Phone Junaid, Deborah Shields APRN Primary Care Provider [phone] Encounter Details Date Type Department Care Team (Late st Contact Info) Description 05/19/2016 10:00 AM EDT Office [place] [phone] Alirio Esparza MD Nonrheumatic aortic valve stenosis [...] AM EDT Appointment Hematology [place] [address] 05/12/2024 10:00 AM EDT Office Visit Hematology [place] [address] Markel Borjas MD [facility] [address] [place] [address] 03/01/2025 4:15 PM EDT Office Visit Dermatology at [place] [address] [facility] [address] [place] [address] Marek Bonilla MD [address] [facility], [place] [address] documented as of this encounter Results * [...] (Bezet) 448 ms MUSE SYSTEM Calculated P Rush 37 degrees MUSE SYSTEM Calculated R Rush 31 degrees MUSE SYSTEM Calculated T Rush 25 degrees MUSE SYSTEM INTERPRETATION Normal sinus rhythm Normal ECG No previous ECGs available Confirmed by MD Becca, Deangelo ([id number]) on 05/19/2016 5:23:33 PM MUSE SYSTEM 05/19/2016 11:4 3 AM EDT 05/19/2016 5:23 PM EDT Alirio Esparza MD ECG ORDERABLES MUSE SYSTEM * Basic Metabolic Panel (non-fasting) (05/19/2016 11:32 AM EDT) Glucose 86 65 - 199 mg/dL [facility] Comment:Diabetes: >=200 mg/d L plus symptoms Blood Urea Nitrogen 13 8 - 18 mg/dL [facility] Creatinine 0.95 0.70 - 1.20 mg/dL [facility] Comment: Please note that the pediatric reference intervals supplied above were not validated at [facility]. Results from pediatric patients should be interpreted [...] mmol/L [facility] Carbon Dioxide 27 22 - 31 mmol/L [facility] Anion Gap 12 5 - 15 mmol/L [facility] Calcium 10.1 8.5 - 10.5 mg/dL [facility] Est Glomerular Filtration Rate 60 [...] the following links into your internet browser. [email or web address] Blood specimen (specimen) 05/19/2016 11:32 AM EDT 05/19/2016 11:41 AM EDT Narrative Resulting Agency Comment Spec In Lab Alirio Epsarza MD CHEMISTRY ORDERABLE S [facility] [place] [address] documented in this encounter Visit Diagnoses Diagnosis Nonrheumatic aortic valve stenosis Aortic valve disorders Nonrheumatic aortic valve stenosis Aortic valve disorders documented in this encounter Care Teams Audio Visual Tech Relationship Specialty Start Date End Date Deborah Quiroga, LAUNCH STEWARD PCP - General Family Medicine 03/24/16 02/04/23 documented as of this encounter
--- OUTSIDE RECORDS SUMMARY | 2024-04-27 15:06 | XMS_ITS | Encounter Summary ---
Author Organization [facility] [place] [address] Care Team Providers Care Wide Area Network Engineer Name Role Phone Danni Laird CHEMICAL TREATMENT PLANT TECHNICIAN Primary Care Provider [phone] Encounter Details Date Type Department Care Team (Late st Contact Info) Description 01/23/2014 Orders Only Cardiology at [address] [address] Lee Kincaid MD [facility] DR CARDIOLOGY [place], [place] [id number] SOB (shortness of breath) (Primary Dx) Social [...] AM EDT Appointment H[place] [address] 05/12/2024 10:00 AM EDT Office Visit [place] [address] Markel Borjas MD [facility] DR HEMATOLOGY [place] [address] 03/01/2025 4:15 PM EDT Office Visit Dermatology at [place] [address] [place] [address] Marek Bonilla MD [address] [place] [address] documented as of this encounter Results * Echocardiogram Transthoracic(Leb) (01/23/2014 3:17 PM EDT) EF 50 HEARTLAB SYSTEM Anatomical Region Laterality Modality Other 01/23/2014 Narrative 01/23/2014 4:35 PM EDT Procedure: ? Transthoracic Echocardiogram Patient: ? ANDREW ECHOLS M ?(Age): 1955(58) Med Rec#: ?[id number] ? Sex: ?F ? Site Loc: ?[facility] ? Ht / Wt: ??158(cm)/93(kg) Pt. Loc: ? Adult Floor ?BSA: ?2.02 Study Date: ?01/23/2014 ? Pt. Type: Inpatient Tape: ? Referring: Lee Kincaid ([id number]) Referring: ANNALISA Applied Psychology Teacher: Miguel Beverly Diagnosis:CPT Code(s): ??Echo Full (74756), ??Spectral Doppler (82217), Color Doppler (22360), Indication(s): ??Aortic stenosis Rhythm: Sinus HR ?BP [...] ? Mid-Inferior ?Hypokinetic ? Mid-Inferoseptal ?Hypokinetic ? [place]-Septal ? Hypokinetic ? [place]-Anterior ? Hypokinetic ? [place]-Lateral ?Hypokinetic ? [place]-Inferior ? Hypokinetic ? [place]-Tip ?Hypokinetic ? Chambers ?Value ?Units (Range) ? [...] 01/23/2014 16:34:37 Images reviewed and interpretation verified [facility] Cardiac Ultrasound Laboratory Procedure Note Lee Kincaid MD - 01/23/2014 Procedure: Transthoracic Echocardiogram Patient: ANDREW Mejias (Age): 1955(58) Med Rec#: [id number] Sex: F Site Loc: [facility] Ht / Wt: 158(cm)/93(kg) Pt. Loc: Adult Floor BSA: 2.02 Study Date: 01/23/2014 Pt. Type: Inpatient Tape: Referring: Lee Kincaid ([id number]) Referring: ANNALISA Applied Psychology Teacher: Miguel Beverly Diagnosis:CPT Code(s): Echo Full (12625), Spectral Doppler (49347), Color Doppler (33277), Indication(s): Aortic stenosis Rhythm: Sinus HR BP [...] Hypokinetic Mid-Posterolateral Hypokinetic Mid-Inferior Hypokinetic Mid-Inferoseptal Hypokinetic [place]-Septal Hypokinetic [place]-Anterior Hypokinetic [place]-Lateral Hypokinetic [place]-Inferior Hypokinetic [place]-Tip Hypokinetic Chambers Value Units (Range) IVSd 2D [...] 01/23/2014 16:34:37 Images reviewed and interpretation verified [facility] Cardiac Ultrasound Laboratory Lee Kincaid MD ECHO ORDERABLES documented in this encounter Visit Diagnoses Diagnosis SOB (shortness of breath)- Primary Shortness of breath documented in this encounter Care Teams Wide Area Network Engineer Relationship Specialty Start Date End Date Danni Laird APRN [address] [facility] [place] [place] [address] PCP - General 01/23/14 11/11/14 documented as of this encounter
--- OUTSIDE RECORDS SUMMARY | 2024-04-27 15:06 | XMS_ITS | Encounter Summary ---
Author Organization [facility] Address [facility] [place] [address] Care Team Providers Care Orchard Pruner Name Role Phone Deborah Quiroga APRN Primary Care Provider [phone] Encounter Details Date Type Department Care Team (Latest Contact Info) Description 05/19/2016 11:52 AM EDT - 05/19/2016 11:59 PM EDT Hospital Encounter XRay at [address] [place] [address] Alirio Esparza MD Nonrheumatic aortic valve stenosis [...] AM EDT Appointment Hematology [place] [address] 05/12/2024 10:00 AM EDT Office Visit Hematology [place] [address] Markel Borjas MD [facility] [address] [place] [address] 03/01/2025 4:15 PM EDT Office Visit Dermatology at [place] [address] [place] [address] Marek Bonilla MD [address] [facility] [place] [address] documented as of this encounter Procedures Procedure [...] disorders documented in this encounter Care Teams Orchard Pruner Relationship Specialty Start Date End Date Deborah Quiroga, PHOTOVOLTAIC SOLAR CELL DESIGNER PCP - General Family Medicine 03/24/16 02/04/23 documented as of this encounter
--- OUTSIDE RECORDS SUMMARY | 2024-04-27 15:06 | XMS_ITS | Encounter Summary ---
[place] [address] Care Team Providers Care Histology Aide Name Role Phone Mitchell Wilkes MD Primary Care Provider [phone] Reason for Visit * Reason Onset Date Comments Other 01/18/2014 Encounter Details Date Type Department Care Team (Late st Contact Info) Description 01/18/2014 Telephone Cardiology at [address] [address] Jesusita Garces Other Social History [...] AM EDT Appointment H[place] [address] 05/12/2024 10:00 AM EDT Office Visit [place] [address] Markel Borjas MD [facility] [address] HEMATOLOGY [place] [address] 03/01/2025 4:15 PM EDT Office Visit Dermatology at [place] [address] [place] [address] Marek Bonilla MD [address], [place] [address] documented as of this encounter Visit Diagnoses Not on filedocumented in this encounter Care Teams Histology Aide Relationship Specialty Start Date End Date Mitchell Wilkes MD [facility] PCP - General 06/24/10 01/19/14 documented as of this encounter
--- OUTSIDE RECORDS SUMMARY | 2024-04-27 15:06 | XMS_ITS | Encounter Summary ---
Author Organization [facility] [address] Care Team Providers Care Learning Support Aide Name Role Phone Eitan Danni ANURAG Primary Care Provider [phone] Encounter Details Date Type Department Care Team (Late st Contact Info) Description 01/23/2014 9:25 AM EDT - 01/23/2014 10:25 AM EDT [place] [address] Alan Jacobson MD [facility] [place] [address] CARDIAC CATHETERIZATION Social History Tobacco Use Types [...] by your doctor, do not take any ffci-ehu-yhrzagd medicines or herbal preparations without first discussing this with your doctor or pharmacist. There is the possibility of side effect and interactions when these are combined. Follow up Care Who to Call with Questions or Problems If there are any questions or problems that you think might be related to your cardiac cath or angioplasty, contact the partner marketing intern audio production manager by calling [facility] at . [...] EDT Appointment Hematology [place] [address] 05/12/2024 10:00 AM EDT Office Visit Hematology [place] [address] Markel Borjas MD [facility] DR HEMATOLOGY [place] [address] 03/01/2025 4:15 PM EDT Office Visit Dermatology at [place] [address] [facility] [place] [address] Marek Bonilla MD [address], [place] [address] documented as of this encounter Procedures Procedure Name Priority Date/Time Associated Diagnosis Comments ECHOCARDIOGRAM TRANSTHORACIC Routine 01/23/2014 3:17 PM EDT SOB (shortness of breath) documented in this encounter Results * Echocardiogram Transthoracic(Leb) (01/23/2014 3:17 PM EDT) [facility] EF 50 HEARTXOXO Kitchen SYSTEM Anatomical Region Laterality Modality Other 01/23/2014 Narrative 01/23/2014 4:35 PM EDT Procedure: ? Transthoracic Echocardiogram Patient: ? ANDREW ONESIMO M ?(Age): 1955(58) Med Rec#: ?[id number] ? Sex: ?F ? Site Loc: ?[facility] [place] ? Ht / Wt: ??158(cm)/93(kg) Pt. Loc: ? Adult Floor ?BSA: ?2.02 Study Date: ?01/23/2014 ? Pt. Type: Inpatient Tape: ? Referring: Lee Kincaid ([id number]) Referring: ANNALISA Advertising Campaign Manager: Miguel Beverly Diagnosis:CPT Code(s): ??Echo Full (38887), ??Spectral Doppler (62874), Color Doppler (38104), Indication(s): ??Aortic stenosis Rhythm: Sinus HR ?BP [...] ? Mid-Inferior ?Hypokinetic ? Mid-Inferoseptal ?Hypokinetic ? [place]-Septal ? Hypokinetic ? [place]-Anterior ? Hypokinetic ? [place]-Lateral ?Hypokinetic ? [place]-Inferior ? Hypokinetic ? [place]-Tip ?Hypokinetic ? Chambers ?Value ?Units (Range) ? [...] Patient: ANDREW Mejias (Age): 1955(58) Med Rec#: [id number] Sex: F Site Loc: [facility] Ht / Wt: 158(cm)/93(kg) Pt. Loc: Adult Floor BSA: 2.02 Study Date: 01/23/2014 Pt. Type: Inpatient Tape: Referring: Lee Kincaid ([id number]) Referring: ANNALISA Advertising Campaign Manager: Miguel Beverly Diagnosis:CPT Code(s): Echo Full (49120), Spectral Doppler (93930), Color Doppler (54769), Indication(s): Aortic stenosis Rhythm: Sinus HR BP [...] Hypokinetic Mid-Posterolateral Hypokinetic Mid-Inferior Hypokinetic Mid-Inferoseptal Hypokinetic [place]-Septal Hypokinetic [place]-Anterior Hypokinetic [place]-Lateral Hypokinetic [place]-Inferior Hypokinetic [place]-Tip Hypokinetic Chambers Value Units (Range) IVSd 2D [...] RN) documented in this encounter Care Teams Learning Support Aide Relationship Specialty Start Date End Date Danni Laird APRN [address] [place] [address] PCP - General 01/23/14 11/11/14 documented as of this encounter
--- OUTSIDE RECORDS SUMMARY | 2024-04-27 15:06 | XMS_ITS | Encounter Summary ---
[place] [address] Care Team Providers Care Carrier Blower Name Role Phone Jerel Sofia Garcia APRN Primary Care Provider [phone] Encounter Details Date Type Department Care Team (Late st Contact Info) Description 11/12/2014 8:10 AM EDT - 11/12/2014 11:59 PM EDT Hospital [place] [address] CLINIC, DR ABE Burrell, Antelmo Porter MD [address] [place] [address] Discharge Disposition: Home Social History Tobacco Use [...] AM EDT Appointment Hematology [place] [address] 05/12/2024 10:00 AM EDT Office Visit [place]ematology [place] [address] Markel Borjas MD [facility] [address] [place] [address] 03/01/2025 4:15 PM EDT Office Visit Dermatology at [place] [address] [place] [address] Marek Bonilla MD [address], [place] [address] documented as of this encounter Procedures Procedure [...] mLs documented in this encounter Care Teams Carrier Blower Relationship Specialty Start Date End Date Sofia Beltrán APRN [address] [place] [address] PCP - General 11/12/14 03/23/16 documented as of this encounter
--- OUTSIDE RECORDS SUMMARY | 2024-04-27 15:06 | XMS_ITS | Encounter Summary ---
Author Organization [facility] Address [facility] [place] [address] Care Team Providers Care Industrial Robotics Mechanic Name Role Phone JunaidAshley hargrovezac Shields APRN Primary Care Provider [phone] Reason for Visit * Consultation (Urgent) - Closed Specialty Diagnoses / Procedures Referred By Contac t Referred To Contact Cardiac Surgery Diagnoses aortic stenosis, consideration for valve replacement Antelmo Burrell MD [address] [place] [address] Alirio Esparza MD [facility] [place] [address] Referral ID Status Reason Start Date Expiration Date V isits Requested Visits Authorized [id number] Closed Connection Center 03/04/2016 03/04/2017 1 1 Encounter Details Date Type Department Care Team (Late st Contact Info) Description 03/24/2016 10:40 AM EDT Office [place] [address] Alirio Esparza MD Aortic valve stenosis, unspecified [...] This is a patient of Antelmo Burrell [facility] Cardiology. Mrs. Thacker is being sent [...] 30 minute visit, 20 minutes were spent tisb-uj-cipo with the patient discussing aortic stenosis and valve replacement. documented in this encounter Plan of Treatment Upcoming Encounters Date Type Department Care Team (Late st Contact Info) Description 05/12/2024 9:00 AM EDT Appointment [place] [address] 05/12/2024 10:00 AM EDT Office Visit [place] [address] Markel Borjas MD [facility] [address] [place] [address] 03/01/2025 4:15 PM EDT Office Visit Dermatology at [place] [address] [facility] [place] [address] Marek Bonilla MD [address] Katherine [place] [address] documented as of this encounter Visit Diagnoses Diagnosis Aortic valve stenosis, unspecified etiology documented in this encounter Care Teams Industrial Robotics Mechanic Relationship Specialty Start Date End Date Deborah Quiroga APRN PCP - General Family Medicine 03/24/16 02/04/23 documented as of this encounter
--- OUTSIDE RECORDS SUMMARY | 2024-04-27 15:06 | XMS_ITS | Encounter Summary ---
Author Organization [facility] [place] [address] Care Team Providers Care Account Support Rep Name Role Phone EitanDanni ANURAG Primary Care Provider [phone] Encounter Details Date Type Department Care Team (Late st Contact Info) Description 01/22/2014 Telephone Cardiology at [address] [phone] Cynthia Arrington LPN Social History Tobacco Use [...] LPN - 01/23/2014 2:39 PM EDT This headline writer did not receive a call back [...] AM EDT Appointment H[place]ology [place] [address] 05/12/2024 10:00 AM EDT Office Visit [place] [address] Markel Borjas MD [facility] [address] [place] [address] 03/01/2025 4:15 PM EDT Office Visit Dermatology at [place] [address] [facility] [place] [address] Marek Bonilla MD [address] [facility] [place] [address] documented as of this encounter Visit Diagnoses Not on filedocumented in this encounter Care Teams Account Support Rep Relationship Specialty Start Date End Date Danni Laird APRN [address] [place] [address] PCP - General 01/23/14 11/11/14 documented as of this encounter
--- OUTSIDE RECORDS SUMMARY | 2024-04-27 15:06 | XMS_ITS | Encounter Summary ---
Author Organization [facility] [place] [address] Care Team Providers Care Home Health Lvn Name Role Phone Junaid Deborah Shields APRN Primary Care Provider [phone] Encounter Details Date Type Department Care Team (Latest Contact Info) Description 05/19/2016 11:00 AM EDT Clinical Support [place] [address] Nonrheumatic aortic valve stenosis Social History Tobacco [...] AM EDT Appointment Hematology [place] [address] 05/12/2024 10:00 AM EDT Office Visit Hematology [place] [address] Markel Borjas MD [facility] DR HEMATOLOGY [place] [address] 03/01/2025 4:15 PM EDT Office Visit Dermatology at [place] [address] [facility] [place] [address] Marek Bonilla MD [address], [place] [address] documented as of this encounter Procedures Procedure [...] (Bezet) 448 ms MUSE SYSTEM Calculated P [place] 37 degrees MUSE SYSTEM Calculated R [place] 31 degrees MUSE SYSTEM Calculated T [place] 25 degrees MUSE SYSTEM INTERPRETATION Normal sinus rhythm Normal ECG No previous ECGs available Confirmed by MD Becca, Deangelo ([id number]) on 05/19/2016 5:23:33 PM MUSE SYSTEM 05/19/2016 11:4 3 AM EDT 05/19/2016 5:23 PM EDT Alirio Esparza MD ECG ORDERABLES BiOxyDyn SYSTEM documented in this encounter Visit Diagnoses Diagnosis Nonrheumatic aortic valve stenosis Aortic valve disorders documented in this encounter Care Teams Home Health Lvn Relationship Specialty Start Date End Date Deborah Quiroga, OPERATIONAL ASSISTANT PCP - General Family Medicine 03/24/16 02/04/23 documented as of this encounter
--- OUTSIDE RECORDS SUMMARY | 2024-04-27 15:06 | XMS_ITS | Encounter Summary ---
Author Organization [facility] Address [facility] [place] [facility] [place] [address] Care Team Providers Care Director Metabolism Name Role Phone EitanMagnusDanni ANURAG Primary Care Provider Encounter Details Date Type Department Care Team (Latest Contact Info) Description 01/23/2014 7:45 AM EDT - 01/23/2014 5:50 PM EDT Hospital Encounter [place] [address] Alan Jacobson MD [facility] [place] [address] Cardiomyopathy; SOB (shortness of breath) Discharge Disposition: [...] by your doctor, do not take any aprd-rlq-fewdhsg medicines or herbal preparations without first discussing this with your doctor or pharmacist. There is the possibility of side effect and interactions when these are combined. Follow up Care Who to Call with Questions or Problems If there are any questions or problems that you think might be related to your cardiac cath or angioplasty, contact the business system consultant professional services specialist by calling [facility] at . documented in this encounter [...] AM EDT Appointment [place] [address] 05/12/2024 10:00 AM EDT Office Visit [place] [address] Markel Borjas MD [facility] [address] [place] [address] 03/01/2025 4:15 PM EDT Office Visit Dermatology at [place] [address] [place] [address] Marek Bonilla MD [address], [place] [address] documented as of this encounter Procedures Procedure Name Priority Date/Time Associated Diagnosis Comments ECHOCARDIOGRAM TRANSTHORACIC Routine 01/23/2014 3:17 PM EDT SOB (shortness of breath) documented in this encounter Results * Echocardiogram Transthoracic(Leb) (01/23/2014 3:17 PM EDT) [facility] EF 50 HEARTLAB SYSTEM Anatomical Region Laterality Modality Other 01/23/2014 Narrative 01/23/2014 4:35 PM EDT Procedure: ? Transthoracic Echocardiogram Patient: ? ANDREW ONESIMO M ?(Age): 1955(58) Med Rec#: ?[id number] ? Sex: ?F ? Site Loc: ?[facility] [place] ? Ht / Wt: ??158(cm)/93(kg) Pt. Loc: ? Adult Floor ?BSA: ?2.02 Study Date: ?01/23/2014 ? Pt. Type: Inpatient Tape: ? Referring: Lee Kincaid ([id number]) Referring: ANNALISA Lithograph Printer: Miguel Beverly Diagnosis:CPT Code(s): ??Echo Full (93982), ??Spectral Doppler (59221), Color Doppler (43758), Indication(s): ??Aortic stenosis Rhythm: Sinus HR ?BP [...] ? Mid-Inferior ?Hypokinetic ? Mid-Inferoseptal ?Hypokinetic ? [place]-Septal ? Hypokinetic ? [place]-Anterior ? Hypokinetic ? [place]-Lateral ?Hypokinetic ? [place]-Inferior ? Hypokinetic ? [place]-Tip ?Hypokinetic ? Chambers ?Value ?Units (Range) ? [...] 01/23/2014 16:34:37 Images reviewed and interpretation verified [facility] Cardiac Ultrasound Laboratory Procedure Note Lee Kincaid MD - 01/23/2014 Procedure: Transthoracic Echocardiogram Patient: ANDREW Mejias (Age): 1955(58) Med Rec#: [id number] Sex: F Site Loc: [facility] [facility] Ht / Wt: 158(cm)/93(kg) Pt. Loc: Adult Floor BSA: 2.02 Study Date: 01/23/2014 Pt. Type: Inpatient Tape: Referring: Lee Kincaid ([id number]) Referring: ANNALISA Lithograph Printer: Miguel Beverly Diagnosis:CPT Code(s): Echo Full (97232), Spectral Doppler (64096), Color Doppler (04621), Indication(s): Aortic stenosis Rhythm: Sinus HR BP [...] Hypokinetic Mid-Posterolateral Hypokinetic Mid-Inferior Hypokinetic Mid-Inferoseptal Hypokinetic [place]-Septal Hypokinetic [place]-Anterior Hypokinetic [place]-Lateral Hypokinetic [place]-Inferior Hypokinetic [place]-Tip Hypokinetic Chambers Value Units (Range) IVSd 2D [...] 01/23/2014 16:34:37 Images reviewed and interpretation verified [facility] Cardiac Ultrasound Laboratory Lee Kincaid MD [...] documented in this encounter Care Teams Director Metabolism Relationship Specialty Start Date End Date Danni Laird APRN [address] [place] [address] PCP - General 01/23/14 11/11/14 documented as of this encounter
--- OUTSIDE RECORDS SUMMARY | 2024-04-27 15:06 | XMS_ITS | Encounter Summary ---
Author Organization [facility] [place] [address] Care Team Providers Care Executive Recruiter Name Role Phone Mitchell Wilkes MD Primary Care Provider [phone] Encounter Details Date Type Department Care Team (Late st Contact Info) Description 01/19/2014 Orders Only Cardiology at [address] [address] Chele Randolph PA [facility] [place] [address] Cardiomyopathy (Primary Dx) Social History Tobacco Use [...] AM EDT Appointment Hematology [place] [address] 05/12/2024 10:00 AM EDT Office Visit Hematology [place] [address] Markel Borjas MD [facility] DR HEMATOLOGY [place] [address] 03/01/2025 4:15 PM EDT Office Visit Dermatology at [place] [address] [place] [address] Marek Bonilla MD [address] [place] [address] documented as of this encounter Procedures Procedure [...] cardiomyopathies documented in this encounter Care Teams Executive Recruiter Relationship Specialty Start Date End Date Mitchell Wilkes MD [facility] PCP - General 06/24/10 01/19/14 documented as of this encounter
--- OUTSIDE RECORDS SUMMARY | 2024-04-27 15:06 | XMS_ITS | Encounter Summary ---
Author Organization [facility] [place] [address] Care Team Providers Care Cyber Legal Advisor Name Role Phone Deborah Quiroga ANURAG Primary Care Provider [phone] Encounter Details Date Type Department Care Team (Late st Contact Info) Description 05/22/2016 Orders Only Cardiology at [address] [phone] Chele Randolph PA [facility] DR CARDIOLOGY DEPT. [place], [place] [id number] Aortic valve stenosis, unspecified etiology Social History [...] AM EDT Appointment [place] [address] 05/12/2024 10:00 AM EDT Office Visit [place] [address] Markel Borjas MD [facility] [address] HEMATOLOGY AND ONCOLOGY [place], [place] [phone] 03/01/2025 4:15 PM EDT Office Visit Dermatology at [place] [address] [place] [phone] Marek Bonilla MD [address], [place] [address] documented as of this encounter Procedures Procedure Name Priority Date/Time Associated Diagnosis Comments CARDIAC CATHETERIZATION Routine 06/03/20 16 9:13 AM EDT Aortic valve stenosis, unspecified etiology documented in this encounter Results * CARDIAC CATHETERIZATION (06/03/2016 9:13 AM EDT) Anatomical Region Laterality Modality Other Narrative 06/03/2016 10:13 AM EDT ?[facility] ? Cardiac Catheterization/Intervention Report ? Patient Name: Purnima Thacker. ? Procedure Date: 06/03/2016 ? A #: [id number] ? Primary Physician: Nitesh Escobedo ? Case #: [id number] ? File Name: [id number] ? Catheterization Order Number: [id number] ? [facility] ? Final Report [place], [place] ? Patient Name: ? Purnima M. Kirstie ? ID#: ?[id number] ? : ?1955 ? Procedure Date: ? June 03, 2016 ? Case #: ? [id number] ? Room: ? 1 ? Case Physician: ? Arabella BeaversD. ? Start: ?08:22 ?Fellow: ? Felicai Corrigan M.D. ? Admission: ??06/03/2016 ?Linda Cary [...] no symptom, no angina (w/i 14 days). [place] ?Cardiovascular Society angina class was 0. This [...] ? Procedure Nitesh Marroquin, MD - 09/21/2016 [facility] Cardiac Catheterization/Intervention Report Patient Name: Purnima Thacker Procedure Date: 06/03/2016 A #: [id number] Primary Physician: Nitesh Escobedo Case #: [id number] File Name: [id number] Catheterization Order Number: [id number] [facility] FinalReport [place], [place] Patient Name: Purnima Thacker ID#:[id number] :1955 Procedure Date: June 03, 2016 Case [...] with: no symptom, no angina (w/i 14 days).[place] [employer] Society angina class was 0. This [...] etiology documented in this encounter Care Teams Cyber Legal Advisor Relationship Specialty Start Date End Date Deborah Quiroga, CLOTHES SHAKER PCP - General Family Medicine 03/24/16 02/04/23 documented as of this encounter
--- OUTSIDE RECORDS SUMMARY | 2024-04-27 15:06 | XMS_ITS | Encounter Summary ---
Author Organization [facility] Address [facility] [place] [address] Care Team Providers Care Dentist Private Practice Name Role Phone Junaid, Deborah Shields APRN Primary Care Provider [phone] Reason for Visit * Auth/Cert Specialty Diagnoses / Procedures Referred By Crispin t Referred To Contact Diagnoses AVS Procedures CARDIAC CATHETERIZATION Referral ID Status Reason Start Date Expiration Date Visits Re quested Visits Authorized [id number] 1 1 Encounter Details Date Type Department Care Team (Late st Contact Info) Description 06/03/2016 7:30 AM EDT - 06/03/2016 8:[address] [place] [phone] Mario Alberto Escobedo MD [facility] [place] [address] CARDIAC CATHETERIZATION Social History Tobacco Use Types [...] by your doctor, do not take any qnvs-vcb-uyjiclu medicinesor herbal preparations without first discussing this with your doctor or pharmacist. There is the possibility of side effects and interactions when these are combined. Follow Up Care Who to call with questions or problems If there are any questions or problems that you think might be related to your cardiac cath or angioplasty, contact the child care coordinator production control manager by calling [facility] at . * Patient Instructions* Felicia Corrigan - 06/03/2016 9:33 AM EDT Cardiology Instructions Call your doctor if: Chest pain, dyspnea, pain or swelling in legs occurs. If you have non-emergent questions between now and the time of your follow up appointments: -During 8am-5pm Wednesday through Wednesday call [phone] to speak with a nurse in the cardiology clinic -All other times call [phone] and ask to speak to the senior interactive developer production control manager. MEDICATIONS - restart your spironolactone, discontinue [...] Appointments: Primary care provider: Cardiology: Deborah Hahn, ROAD GANG SUPERVISOR [phone] Follow up as planned or as needed. Dr. Esparza [phone] Other follow-up appointment: Hematology - Dr. Mario [...] AM EDT Appointment [place] [address] 05/12/2024 10:00 AM EDT Office Visit [place] [address] Markel Borjas MD [facility] DR HEMATOLOGY [place] [address] 03/01/2025 4:15 PM EDT Office Visit Dermatology at [place] [address] [facility] [place] [phone] Marek Bonilla MD [address], [place] [address] documented as of this encounter Procedures Procedure [...] Escobedo MD CHEMISTRY ORDERABLES Performing Organization Address City/[facility]/ZIP Co de Phone Number [facility] [place] [address] * Methylmalonic acid, serum (06/03/2016 11:45 AM EDT) Methylmalonic Acid (NOVEMBER) 0.21 <=0.40 nmol/mL [facility] Comment: Test Performed by: [address] [address] Weapons Officer: Raymond Chaudhry II, M.D., Ph.D. Blood specimen (specimen) 06/03/2016 11:45 AM EDT 06/03/2016 1:57 PM EDT Narrative Resulting Agency Comment Spec In Lab Mario Alberto Escobedo MD LAB SEND OUT ORDERAB LES Performing Organization Address City/[facility]/ZIP Co de Phone Number [facility] [place] [address] * Granulocyte Antibody (06/03/2016 11:45 AM EDT) Pathologist [facility] Granulocyte Ab (NOVEMBER) Negative Not Applicable [facility] Comment: ADDITIONAL INFORMATION Method: Immunofluorescent Assay Performing Laboratory CLIA# [id number] This test was developed and its performance characteristics determined by [facility] in a manner consistent with CLIA requirements. This test has not been cleared or approved by the U.S. Food and Drug Administration. Test Performed by: [place] [address] Weapons Officer: Raymond Chaudhry II, M.D., Ph.D. Blood specimen (specimen) 06/03/2016 11:45 AM EDT 06/03/2016 1:57 PM EDT Narrative Resulting Agency Comment Spec In Lab Mario Alberto Escobedo MD LAB SEND OUT ORDERAB LES [facility] [place] [address] * TSH (06/03/2016 11:45 AM EDT) Pathologist [facility] Thyroid Stimulating Hormone 2.18 0.27 - 4.20 mcIU/mL [facility] Blood specimen (specimen) 06/03/2016 11:45 AM EDT 06/03/2016 12:11 PM EDT Narrative Resulting Agency Comment Spec In Lab Mario Alberto Escobedo MD CHEMISTRY ORDERABLES Performing Organization Address City/[facility]/ZIP Co de Phone Number [facility] [place] [address] * Homocysteine Total, Plasma (06/03/2016 11:45 AM EDT) Homocystine 9 <=15 mcmol/L [facility] Blood specimen (specimen) 06/03/2016 11:45 AM EDT 06/03/2016 12:11 PM EDT Narrative Resulting Agency Comment Spec In Lab Mario Alberto Escobedo MD CHEMISTRY ORDERABLES Performing Organization Address City/[facility] Co de Phone Number [facility] [place] [address] * Folate, serum (06/03/2016 11:45 AM EDT) Folate >20.0 4.8 - 24.2 ng/mL [facility] Blood specimen (specimen) 06/03/2016 11:45 AM EDT 06/03/2016 12:04 PM EDT Narrative Resulting Agency Comment Spec In Lab Mario Alberto Escobedo MD CHEMISTRY ORDERABLES Performing Organization Address [facility] Co de Phone Number [facility] [place] [address] * (ABNORMAL) Sedimentation rate (06/03/2016 11:45 AM EDT) Sedimentation Rate Automated 41(H) 0 - 20 mm/hr [facility] Blood specimen (specimen) 06/03/2016 11:45 AM EDT 06/03/2016 12:04 PM EDT Narrative Resulting Agency Comment Spec In Lab Mario Alberto Escobedo MD HEMATOLOGY ORDERABLE S Performing Organization Address City/[facility] Co de Phone Number [facility] [place] [address] * Lactate Dehydrogenase (06/03/2016 11:45 AM EDT) Lactate Dehydrogenase 164 110 - 220 unit/L [facility] Blood specimen (specimen) 06/03/2016 11:45 AM EDT 06/03/2016 12:11 PM EDT Narrative Resulting Agency Comment Spec In Lab Mario Alberto Escobedo MD CHEMISTRY ORDERABLES Performing Organization Address City/[facility]/ZIP Co de Phone Number [facility] [place] [address] * Comprehensive metabolic panel (non-fasting) (06/03/2016 11:45 [...] the following links into your internet browser. [email or web address] Blood specimen (specimen) 06/03/2016 11:45 AM EDT 06/03/2016 12:11 PM EDT Narrative Resulting Agency Comment Spec In Lab Mario Alberto Escobedo MD CHEMISTRY ORDERABLES [facility] [place] [address] documented in this encounter Visit Diagnoses Diagnosis [...] Hernandez) documented in this encounter Care Teams Dentist Private Practice Relationship Specialty Start Date End Date Deborah Quiroga APRN PCP - General Family Medicine 03/24/16 02/04/23 documented as of this encounter
--- OUTSIDE RECORDS SUMMARY | 2024-04-27 15:06 | XMS_ITS | Encounter Summary ---
Author Organization [facility] Address [facility] [place] [address] Care Team Providers Care Video Camera Operator Name Role Phone JunaidAshley hargrovezac Shields APRN Primary Care Provider [phone] Reason for Visit * Auth/Cert Specialty Diagnoses / Procedures Referred By Crispin t Referred To Contact Diagnoses AVS Procedures CARDIAC CATHETERIZATION Referral ID Status Reason Start Date Expiration Date Visits Re quested Visits Authorized [id number] 1 1 Encounter Details Date Type Department Care Team (Late st Contact Info) Description 06/03/2016 6:32 AM EDT - 06/03/2016 1:10 PM EDT Hospital Encounter [place] [phone] Anjum Oliveros II, MD [facility] [place] [address] Mario Alberto Escobedo MD [facility] [place] [address] Aortic valve stenosis, unspecified etiology; Nonrheumatic aortic [...] by your doctor, do not take any qebn-bxz-eoieklq medicinesor herbal preparations without first discussing this with your doctor or pharmacist. There is the possibility of side effects and interactions when these are combined. Follow Up Care Who to call with questions or problems If there are any questions or problems that you think might be related to your cardiac cath or angioplasty, contact the gas usage meter clerk button sewer hand by calling [facility] at . * Patient Instructions* Felicia Corrigan - 06/03/2016 9:33 AM EDT Cardiology Instructions Call your doctor if: Chest pain, dyspnea, pain or swelling in legs occurs. If you have non-emergent questions between now and the time of your follow up appointments: -During 8am-5pm Wednesday through Wednesday call [phone] to speak with a nurse in the cardiology clinic -All other times call [phone] and ask to speak to the nurse aide evaluator button sewer hand. MEDICATIONS - restart your spironolactone, discontinue prior [...] Appointments: Primary care provider: Cardiology: Deborah Hahn, PERSONAL LINES AGENT [phone] Follow up as planned or as needed. Dr. Esparza [phone] Other follow-up appointment: Hematology - Dr. Mario [...] AM EDT Appointment Hematology [place] [address] 05/12/2024 10:00 AM EDT Office Visit [place]ematology [place] [address] Markel Borjas MD [facility] [address] [place] [address] 03/01/2025 4:15 PM EDT Office Visit Dermatology at [place] [address] [place] [address] Marek Bonilla MD [address], [place] [address] documented as of this encounter Procedures Procedure [...] AM EDT) Green Hold Sample in lab. [facility] Blood specimen (specimen) Venous Draw / Unknown 06/03/2016 11:45 AM EDT 06/03/2016 12:12 PM EDT Mario Alberto Escobedo MD CHEMISTRY ORDERABLES [facility] [place] [address] * Methylmalonic acid, serum (06/03/2016 11:45 AM EDT) Methylmalonic Acid (NOVEMBER) 0.21 <=0.40 nmol/mL [facility] Comment: Test Performed by: [address] [address] Special Needs Teacher: Raymond Chaudhry II, M.D., Ph.D. Blood specimen (specimen) 06/03/2016 11:45 AM EDT 06/03/2016 1:57 PM EDT Narrative Resulting Agency Comment Spec In Lab Mario Alberto Escobedo MD LAB SEND OUT ORDERAB LES Performing Organization Address [facility] Co de Phone Number [facility] [place] [address] * Granulocyte Antibody (06/03/2016 11:45 AM EDT) Granulocyte Ab (NOVEMBER) Negative Not Applicable [facility] Comment: ADDITIONAL INFORMATION Method: Immunofluorescent Assay Performing Laboratory CLIA# [id number] This test was developed and its performance characteristics determined by [facility] in a manner consistent with CLIA requirements. This test has not been cleared or approved by the U.S. Food and Drug Administration. Test Performed by: [place] [address] Special Needs Teacher: Raymond Chaudhry II, M.D., Ph.D. Blood specimen (specimen) 06/03/2016 11:45 AM EDT 06/03/2016 1:57 PM EDT Narrative Resulting Agency Comment Spec In Lab Mario Alberto Escobedo MD LAB SEND OUT ORDERAB LES Performing Organization Address [facility] Co de Phone Number [facility] [address] * TSH (06/03/2016 11:45 AM EDT) Thyroid Stimulating Hormone 2.18 0.27 - 4.20 mcIU/mL [facility] Blood specimen (specimen) 06/03/2016 11:45 AM EDT 06/03/2016 12:11 PM EDT Narrative Resulting Agency Comment Spec In Lab Mario Alberto Escobedo MD CHEMISTRY ORDERABLES Performing Organization Address [facility]/ZIP Co de Phone Number [facility] [place] [address] * Homocysteine Total, Plasma (06/03/2016 11:45 AM EDT) Homocystine 9 <=15 mcmol/L [facility] Blood specimen (specimen) 06/03/2016 11:45 AM EDT 06/03/2016 12:11 PM EDT Narrative Resulting Agency Comment Spec In Lab Mario Alberto Escobedo MD CHEMISTRY ORDERABLES Performing Organization Address City/[facility]/ZIP Co de Phone Number [facility] [place] [address] * Folate, serum (06/03/2016 11:45 AM EDT) Folate >20.0 4.8 - 24.2 ng/mL [facility] Blood specimen (specimen) 06/03/2016 11:45 AM EDT 06/03/2016 12:04 PM EDT Narrative Resulting Agency Comment Spec In Lab Mario Alberto Escobedo MD CHEMISTRY ORDERABLES Performing Organization Address City/[facility]/ZIP Co de Phone Number [facility] [address] * (ABNORMAL) Sedimentation rate (06/03/2016 11:45 AM EDT) Sedimentation Rate Automated 41(H) 0 - 20 mm/hr [facility] Blood specimen (specimen) 06/03/2016 11:45 AM EDT 06/03/2016 12:04 PM EDT Narrative Resulting Agency Comment Spec In Lab Mario Alberto Escobedo MD HEMATOLOGY ORDERABLE S Performing Organization Address City/[facility]/ZIP Co de Phone Number [facility] [place] [address] * Lactate Dehydrogenase (06/03/2016 11:45 AM EDT) Lactate Dehydrogenase 164 110 - 220 unit/L [facility] Blood specimen (specimen) 06/03/2016 11:45 AM EDT 06/03/2016 12:11 PM EDT Narrative Resulting Agency Comment Spec In Lab Mario Alberto Escobedo MD CHEMISTRY ORDERABLES [facility] [place] [address] * Comprehensive metabolic panel (non-fasting) (06/03/2016 11:45 [...] the following links into your internet browser. [email or web address] Blood specimen (specimen) 06/03/2016 11:45 AM EDT 06/03/2016 12:11 PM EDT Narrative Resulting Agency Comment Spec In Lab Mario Alberto Escobedo MD CHEMISTRY ORDERABLES Performing Organization Address City/State/[facility] Co de Phone Number [facility] [place] [phone] documented in this encounter Visit Diagnoses Diagnosis [...] Hernandez) documented in this encounter Care Teams Video Camera Operator Relationship Specialty Start Date End Date Deborah Quiroga, PERSONAL LINES AGENT PCP - General Family Medicine 03/24/16 02/04/23 documented as of this encounter
--- OUTSIDE RECORDS SUMMARY | 2024-04-27 15:06 | XMS_ITS | Encounter Summary ---
Author Organization [facility] Address [facility] [place] [address] Care Team Providers Care Director Camp Name Role Phone Ashley Quirogan Cornelius ANURAG Primary Care Provider [phone] Encounter Details Date Type Department Care Team (Latest Contact Info) Description 05/19/2016 11:20 AM EDT Laboratory [place] [phone] Nonrheumatic aortic valve stenosis Social History Tobacco [...] AM EDT Appointment Hematology [place] [phone] 05/12/2024 10:00 AM EDT Office Visit Hematology [place] [address] Markel Borjas MD [facility] [address] HEMATOLOGY AND ONCOLOGY [place], [place] [phone] 03/01/2025 4:15 PM EDT Office Visit Dermatology at [address] [address] Marek Bonilla MD [address] [place] [address] documented as of this encounter Procedures Procedure Name Priority Date/Time Associated Diagnosis Comments SCAN, PERIPHERAL BLOOD Routine 05/19/2016 11:32 AM EDT HEMOGRAM Routine 05/19/2016 11:32 AM EDT Nonrheumatic aortic valve stenosis DIFFERENTIAL, AUTOMATED Routine 05/19/2016 11:32 AM EDT Nonrheumatic aortic valve stenosis TYPE AND SCREEN, SDP (FUTURE SURGERY, [facility] SAME DAY [...] (05/19/2016 11:32 AM EDT) Plat estimate Normal [facility] RBC Morphology Normal [facility] Blood specimen (specimen) 05/19/2016 11:32 AM EDT 05/19/2016 11:41 AM EDT Narrative Resulting Agency Comment Spec In Lab Alirio Esparza MD HEMATOLOGY ORDERABL ES [facility] [place] [address] * (ABNORMAL) Differential, Automated (05/19/2016 11:32 AM EDT) Pathologist Iron Neutrophil % 25.9 % [facility] Neutrophil Absolute 0.42(Crit ical) 1.70 - 6.10 x10(3)/[facility] Comment: This result has been called to DR ALIRIO ESPARZA by Alivia Ibarra on 05 19 2016 at 1228, and has been read back. Lymph % 59.9 % [facility] Lymphocytes Abs 1.0 0.9 - 3.2 x10(3)/[facility] Monocyte % 13.0 % [facility] Monocyte Abs 0.2(L) 0.3 - 0.9 x10(3)/[facility] Eos % 0.6 % [facility] Eosinophils Abs 0.0 0.0 - 0.4 x10(3)/[facility] Basophil % 0.6 % [facility] Baso Absolute 0.0 0.0 - 0.1 x10(3)/[facility] Immature Gran % 0.00 % [facility] Comment: Immature granulocytes(IG's)percentage and absolute count will include metamyelocytes, myelocytes, and promyelocytes. Blood smears from CBCs yielding IG's will be scanned manually for concordance. If this scan disagrees with the automated IG or if promyelocytes are noted, a manual differential will be performed. Immature Gran Absolute 0.00 0.00 - 0.04 x10(3)/[facility] Blood specimen (specimen) 05/19/2016 11:32 AM EDT 05/19/2016 11:41 AM EDT Narrative Resulting Agency Comment Spec In Lab Alirio Esparza MD HEMATOLOGY ORDERABL ES [facility] [place] [address] * (ABNORMAL) Hemogram (05/19/2016 11:32 AM EDT) White Blood Cell 1.6(Criti gabrielle) 4.0 - 9.5 x10(3)/mc L [facility] Comment: [...] Platelet 227 145 - 357 x10(3)/ L [facility] RDW Standard Deviation 40.5 37.0 - 46.0 [facility] RDW coefficient of variation 11.5 11.5 - 14.1 % [facility] Mean Platelet Volume 8.4 7.6 - 12.9 fL [facility] NRBC% auto 0.0 % [facility] NRBC Absolute 0.000 0.000 - 0.000 x10(3)/ L [facility] Blood specimen (specimen) 05/19/2016 11:32 AM EDT 05/19/2016 11:41 AM EDT Narrative Resulting Agency Comment Spec In Lab Alirio Esparza MD HEMATOLOGY ORDERABL ES [facility] [place] [address] * Antibody screen (05/19/2016 11:32 AM EDT) Ab Screen Interp Negative [facility] Expires at [id number] on: 07/03/2016 [facility] Comment: Corrected from 06/11/16 12:00 [Unknown] on 06/09/16 05:51 by Bethanie Tomlinson I.. Corrected from 07/03/16 12:00 [Unknown] on 05/21/16 06:00 by Shelia Barrera Blood specimen (specimen) 05/19/2016 11:32 AM EDT 05/19/2016 11:35 AM EDT Narrative Resulting Agency Comment Spec In Lab Alirio Esparza MD BLOOD BANK LAB ORDCornelius ALEJO [facility] [place] [address] * ABO/Rh Typing (05/19/2016 11:32 AM EDT) Pathologist [facility] ABORH Type B Pos [facility] Blood specimen (specimen) 05/19/2016 11:32 AM EDT 05/19/2016 11:35 AM EDT Narrative Resulting Agency Comment Spec In Lab Alirio Esparza MD BLOOD BANK LAB BETH ALEJO [facility] [place] [address] * Basic Metabolic Panel (non-fasting) (05/19/2016 11:32 AM EDT) [facility] Glucose 86 65 - 199 mg/dL [facility] [...] the following links into your internet browser. [email or web address] Blood specimen (specimen) 05/19/2016 11:32 AM EDT 05/19/2016 11:41 AM EDT Narrative Resulting Agency Comment Spec In Lab Alirio Esparza MD CHEMISTRY ORDERABLE S [facility] [place] [address] documented in this encounter Visit Diagnoses Diagnosis Nonrheumatic aortic valve stenosis Aortic valve disorders documented in this encounter Care Teams Director Camp Relationship Specialty Start Date End Date Deborah Quiroga APRN PCP - General Family Medicine 03/24/16 02/04/23 documented as of this encounter
== END 2024-05-01 23:59 | disposition home or self-care (01) ==
LOC: CR 14:58
PROVIDERS: PCP Family Medicine; Visit Provider Internal Medicine Cardiovascular Disease
DX: R69 Illness, unspecified (principal)

== ENCOUNTER 2024-05-09 12:50 | Outpatient (CLI) | payer MEDICARE, BC, SELFPAY ==
[2024-04-27 14:44] VITALS: BP 106/48; PULSE 67
--- NOTE | 2024-05-09 12:45 | RT.EKG_ITS ---
APPROVED REPORT Exam: Resting ECG Reason for Exam: MIXED CONNECTIVE TISSUE DISEASE Patient Location: O HR:84 bpm ECG Measurements Heart Rate 84 AXIS ME 174 P 38 QRSd 108 QRS 16 QT 438 T 46 QTc 518 Conclusion Sinus rhythm...normal P axis, V-rate 50- 99 Multiform ventricular premature complexes...short R-R, variable morphology Poor R wave progression Prolonged QT interval...QTc >500mS
== END 2024-05-09 12:51 | disposition home or self-care (01) ==
PROVIDERS: PCP Family Medicine; Visit Provider Internal Medicine
DX: I42.8 Other cardiomyopathies (principal); Z95.3 Presence of xenogenic heart valve
CPT/HCPCS: 93005; 93010

== ENCOUNTER 2024-06-01 14:09 | Outpatient (RCR) | payer SELFPAY ==
--- OUTSIDE RECORDS SUMMARY | 2024-05-02 15:08 | XMS_ITS | Clinical Summary ---
Author Organization [facility] Address [address] [place] [address] Care Team Providers Care Rust Proofer Name Role Phone Ashley Chavez Primary Care Provider [phone] Encounters Date Type Department Care Team Description 03/22/2024 Lab Requisition [facility] Pathology & Laboratory [address] [address] Consuelo Guerrero, DO Diaphragmatic hernia without obstruction or gangrene; Anemia, unspecified 03/21/2024 Lab Requisition [facility] Pathology & Laboratory [address] [address] Consuelo Guerrero, DO Encounter for other general examination 03/21/2024 Lab Requisition [facility] Pathology & Laboratory [address] [address] Outr Resulting Lab, Provider from Last 3 [...] LORY Negative 03/21/2024 22:31 EDT [facility] BLOOD BANK Blood VENOUS BLOOD / Unknown 03/21/2024 13:00 EDT 03/21/2024 21:51 EDT Consuelo Guerrero DO BLOOD BANK TESTS Performing Organization Address [facility] Co de Phone Number [facility] BLOOD BANK [address] [place] [address] * HAPTOGLOBIN (03/21/2024 13:00 EDT) Haptoglobin 183 32 - 197 mg/dL 03/22/2024 10:25 EDT [facility] Blood VENOUS BLOOD / Unknown 03/21/2024 13:00 EDT 03/21/2024 21:50 EDT Provider Outr Resulting Lab CHEMISTRY & BLOOD GAS ORDERABLES Performing Organization Address [facility]/ZIP Co de Phone Number [facility] [address] [place], [place] [address] * SURGICAL PATHOLOGY (03/21/2024 11:35 EDT) Note to Patient The following pathology results have been interpreted by your pathologist and may be available to you before your health provider has had the opportunity to review them. Please allow time for your provider to receive these results and explore management options, if applicable. 03/24/2024 10:36 EDT [facility] Final Diagnosis A. JEJUNUM, [...] - Deeper sections x3 examined. 03/24/2024 10:36 [facility] Attestation There was significant resident/fellow involvement in the diagnostic evaluation of this case. By the signature below, the attending physician certifies that they have personally conducted a gross and/or microscopic examination of the described specimens and rendered or confirmed the above diagnosis. 03/24/2024 10:36 [facility] at 1036 Clinical History Anemia, hiatal hernia, 38 cm aguayo diverticulosis 03/24/2024 10:36 [facility] Gross Description A. Received [...] 03/22/2024 9:36 03/24/2024 10:36 EDT [facility] Resident/Estuardo w: Luis Felipe Bragg DO 03/24/2024 10:36 EDT [facility] Performing Lab [facility] 10:36 EDT [facility] Scanned Images 03/24/2024 10:36 EDT [facility] Tissue POLYP OF COLON [...] 8:19 EDT Consuelo Guerrero DO PATHOLOGY ORDERABLES [facility] [address] [place] [address] from Last 3 Months Care Teams Rust Proofer Relationship Specialty Start Date End Date Ashley Chavez ARNP [address] [place] [address] PCP - General 07/11/10
--- OUTSIDE RECORDS SUMMARY | 2024-05-02 15:08 | XMS_ITS | Encounter Summary ---
Author Organization [facility] Address [address] [place] [address] Care Team Providers Care Primary Care Nurse Practitioner Name Role Phone Ashley Chavez Primary Care Provider Encounter Details Date Type Department Care Team (Late st Contact Info) Description 03/21/2024 Lab Requisition [facility] Pathology & Laboratory Medicine - [address] [address] Outr Resulting Lab, Provider Social History Tobacco [...] 32 - 197 mg/dL 03/22/2024 10:25 EDT [facility]ORY SERVICES Blood VENOUS BLOOD / Unknown 03/21/2024 13:00 EDT 03/21/2024 21:50 EDT Provider Outr Resulting Lab CHEMISTRY & BLOOD GAS ORDERABLES [facility] [address] [place] [address] documented in this encounter Visit Diagnoses Not on filedocumented in this encounter Care Teams Primary Care Nurse Practitioner Relationship Specialty Start Date End Date Ashley Chavez ARNP [address] [place] [address] PCP - General 07/11/10 documented as of this encounter
--- OUTSIDE RECORDS SUMMARY | 2024-05-02 15:08 | XMS_ITS | Encounter Summary ---
Author Organization [facility] Address [address] [place] [address] Care Team Providers Care Director Public Service Name Role Phone Ashley Chavez Primary Care Provider [phone] Encounter Details Date Type Department Care Team (Late st Contact Info) Description 03/22/2024 Lab Requisition [facility] Pathology & Laboratory Medicine - [address] [address] Consuelo Guerrero, DO [address] [address] [address] [place], [place] [address] Diaphragmatic hernia without obstruction or gangrene; Anemia, [...] explore management options, if applicable. 03/24/2024 10:36 [facility] Final Diagnosis A. JEJUNUM, PROXIMAL, [...] - Deeper sections x3 examined. 03/24/2024 10:36 [facility] Attestation There was significant resident/fellow involvement in the diagnostic evaluation of this case. By the signature below, the attending physician certifies that they have personally conducted a gross and/or microscopic examination of the described specimens and rendered or confirmed the above diagnosis. 03/24/2024 10:36 [facility] at 1036 Clinical History Anemia, hiatal hernia, 38 cm aguayo diverticulosis 03/24/2024 10:36 [facility] Gross Description A. Received in [...] 10:36 EDT [facility] Resident/Estuardo w: Luis Felipe Bragg DO 03/24/2024 10:36 T [facility] Performing Lab [facility] 10:36 T [facility] Scanned Images 03/24/2024 10:36 T [facility] Tissue POLYP OF COLON / [...] PATHOLOGY ORDERABLES [facility] [address] [place] [address] documented in this encounter Visit Diagnoses Diagnosis Diaphragmatic hernia without obstruction or gangrene Diaphragmatic hernia without mention of obstruction or gangrene Anemia, unspecified documented in this encounter Care Teams Director Public Service Relationship Specialty Start Date End Date Ashley Chavez ARNP [address] [place] [address] PCP - General 07/11/10 documented as of this encounter
--- OUTSIDE RECORDS SUMMARY | 2024-05-02 15:08 | XMS_ITS | Encounter Summary ---
Author Organization [facility] Address [address] [place] [address] Care Team Providers Care General Car Supervisor Yard Name Role Phone Ashley Chavez Primary Care Provider [phone] Encounter Details Date Type Department Care Team (Late st Contact Info) Description 01/07/[address] [facility] Pathology & Laboratory Medicine - [address] [id number] Outr Resulting Lab, Provider Social History Tobacco [...] 56.2 55.8 - 66.1 % 01/08/2023 11:28 [facility] Albumin g/dL 3.9 3.6 - 5.2 g/dL 01/08/2023 11:28 [facility] Alpha-1 % 5.1(H) 2.9 - 4.9 % 01/08/2023 11:28 [facility] Alpha-1 g/dL 0.40 0.15 - 0.40 g/dL 01/08/2023 11:28 [facility] Alpha-2 % 7.0(L) 7.1 - 11.8 % 01/08/2023 11:28 [facility] Alpha-2 g/dL 0.50 0.50 - 1.00 g/dL 01/08/2023 11:28 [facility] Beta % 12.7 8.4 - 13.1 % 01/08/2023 11:28 [facility] Beta g/dL 0.90 0.60 - 1.20 g/dL 01/08/2023 11:28 [facility] Gamma % 19.0(H) 11.1 - 18.8 % 01/08/2023 11:28 [facility] Gamma g/dL 1.30 0.60 - 1.60 g/dL 01/08/2023 11:28 [facility] SPEP Comment No apparent monoclonal protein seen on serum electrophoresis 01/08/2023 11:28 [facility] Comment:See scanned/suppleme ntary report. Total Protein 6.9 6.3 - 8.2 g/dL 01/08/2023 11:28 [facility] Blood VENOUS BLOOD / Unknown 01/06/2023 14:40 EDT 01/07/2023 17:37 EDT Provider Outr Resulting Lab CHEMISTRY & BLOOD GAS ORDERABLES Performing Organization Address City/State/[facility] Co de Phone Number [facility] [address] [place] [address] * PROTEIN, TOTAL (01/06/2023 14:40 EDT) Blood VENOUS BLOOD / Unknown 01/06/2023 14:40 EDT 01/07/2023 17:37 EDT Provider Outr Resulting Lab CHEMISTRY & BLOOD GAS ORDERABLES Performing Organization Address [facility] Co de Phone Number [facility] [address] [place] [address] * (ABNORMAL) EXTRACTABLE NUCLEAR ANTIGEN PANEL (01/06/2023 14:40 EDT) SSA Antibody 1.3 <20.0 Units 01/08/2023 15:42 EDT [facility] [...] Antibody 1.5 <20.0 Units 01/08/2023 15:42 EDT [facility] [...] Antibody 15.3 <20.0 Units 01/08/2023 15:42 EDT [facility] Comment: ? Negative: <20.0 Units ? Weak Positive: 20.0 - 39.9 Units ? Moderate Positive: 40.0 - 80.0 Units ? Strong Positive: >80.0 Units Results were obtained with the CoullVA QUANTA Lite Sm DOMO. ??Sm values obtained with different manufacturers' assay methods may not be used interchangeably. ??The magnitude of the reported IgG levels cannot be correlated to an endpoint titer. SANFORIZING MACHINE OPERATOR Antibody 149.1(H) <20.0 Units 01/08/2023 15:42 EDT [facility] Comment: ? Negative: <20.0 Units ? Weak Positive: 20.0 - 39.9 Units ? Moderate Positive: 40.0 - 80.0 Units ? Strong Positive: >80.0 Units Results were obtained with the Provadeva Quanta Lite SANFORIZING MACHINE OPERATOR DOMO. SANFORIZING MACHINE OPERATOR values obtained with different chainstitch hemmer's assay methods may not be used interchangeaby. ??The magnitude of the reported IgG levels cannot be be correlated to an endpoint titer. A positive result in the Quanta Lite SANFORIZING MACHINE OPERATOR DOMO indicates the presence of antibodies reactive with the SANFORIZING MACHINE OPERATOR/Sm complex but cannot distinguish between anti-Sm and anti-SANFORIZING MACHINE OPERATOR activity. Blood VENOUS BLOOD / Unknown 01/06/2023 14:40 EDT 01/07/2023 17:37 EDT Provider Outr Resulting Lab IMMUNOLOGY A ND SEROLOGY ORDERABLES [facility] [address] [place] [address] * (ABNORMAL) ANTI NUCLEAR AB (FRANCISCO), IFA (01/06/2023 14:40 EDT) FRANCISCO Interpretation Positive(A) Negative 01/08/2023 15:22 EDT [facility] Comment: Result [...] Pattern 1 1:5120 Speckled 01/08/2023 15:22 EDT [facility] Blood VENOUS BLOOD / Unknown 01/06/2023 14:40 EDT 01/07/2023 17:37 EDT Narrative [facility] - 01/08/2023 15:22 EDT Results were obtained with the INOVA NOVA Lite HEp-2 FRANCISCO Kit by indirect immunofluorescence. Provider Outr Resulting Lab IMMUNOLOGY A ND SEROLOGY ORDERABLES Performing Organization Address City/State/[facility] Co de Phone Number [facility] [address] [place] [address] documented in this encounter Visit Diagnoses Not on filedocumented in this encounter Care Teams General Car Supervisor Yard Relationship Specialty Start Date End Date Ashley Chavez ARNP [address] [place] [address] PCP - General 07/11/10 documented as of this encounter
--- OUTSIDE RECORDS SUMMARY | 2024-05-02 15:08 | XMS_ITS | Encounter Summary ---
Author Organization [facility] Address [address] [place] [address] Care Team Providers Care Parachute Repairer Name Role Phone Ashley Chavez Primary Care Provider [phone] Encounter Details Date Type Department Care Team (Late st Contact Info) Description 10/30/2022 Lab Requisition [facility] Pathology & Laboratory Medicine - [address] [address] Outr Resulting Lab, Provider Social History Tobacco [...] Stranded) <12.3 <30.0 IU/mL 11/03/2022 13:08 EDT [facility] Comment: ? Negative: ??<30.0 IU/mL ? Borderline Positive: ??30.0 - 75.0 IU/mL ? Positive: ??>75.0 IU/mL Results were obtained with the INOVA QUANTA Lite dsDNA SC DOMO assay on the Stion DSX. Blood VENOUS BLOOD / Unknown 10/29/2022 14:00 EDT 10/30/2022 19:27 EDT Provider Outr Resulting Lab IMMUNOLOGY A ND SEROLOGY ORDERABLES Performing Organization Address [facility] de Phone Number [facility] [address] [place] [address] * SM (MORENO) ANTIBODY (10/29/2022 14:00 EDT) [facility] SM (Moreno) Antibody 18.5 <20.0 Units 11/03/2022 14:26 EDT [facility] Comment: ? Negative: <20.0 Units ? Weak Positive: 20.0 - 39.9 Units ? Moderate Positive: 40.0 - 80.0 Units ? Strong Positive: >80.0 Units Results were obtained with the INOVA QUANTA Lite Sm DMOO. ??Sm values obtained with different manufacturers' assay methods may not be used interchangeably. ??The magnitude of the reported IgG levels cannot be correlated to an endpoint titer. Blood VENOUS BLOOD / Unknown 10/29/2022 14:00 EDT 10/30/2022 19:27 EDT Provider Outr Resulting Lab IMMUNOLOGY A ND SEROLOGY ORDERABLES Performing Organization Address [facility] de Phone Number [facility] [address] [place] [address] documented in this encounter Visit Diagnoses Not on filedocumented in this encounter Care Teams Parachute Repairer Relationship Specialty Start Date End Date Ashley Chavez ARNP [address] [place] [address] PCP - General 07/11/10 documented as of this encounter
--- OUTSIDE RECORDS SUMMARY | 2024-05-02 15:08 | XMS_ITS | Referral Summary ---
Author Organization [facility] Address [address] [place] [address] Care Team Providers Care Research Nurse Name Role Phone Ashley Chavez Primary Care Provider [phone] Encounters Date Type Department Care Team Description 03/22/2024 Lab Requisition [facility] Pathology & Laboratory [address] [address] Consuelo Guerrero, DO Diaphragmatic hernia without obstruction or gangrene; Anemia, unspecified 03/21/2024 Lab Requisition [facility] Pathology & Laboratory [address] [address] Consuelo Guerrero DO Encounter for other general examination 03/21/2024 Lab Requisition [facility] Pathology & Laboratory [address] [address] Outr Resulting Lab, Provider from Last 3 [...] 13:00 EDT) LORY Negative 03/21/2024 22:31 EDT [facility] BLOOD BANK Blood VENOUS BLOOD / Unknown 03/21/2024 13:00 EDT 03/21/2024 21:51 EDT Consuelo Guerrero DO BLOOD BANK TESTS Performing Organization Address [facility] Co de Phone Number [facility] BLOOD BANK [address] [place] [address] * HAPTOGLOBIN (03/21/2024 13:00 EDT) Haptoglobin 183 32 - 197 mg/dL 03/22/2024 10:25 EDT [facility] Blood VENOUS BLOOD / Unknown 03/21/2024 13:00 EDT 03/21/2024 21:50 EDT Provider Outr Resulting Lab CHEMISTRY & BLOOD GAS ORDERABLES Performing Organization Address [facility] Co de Phone Number [facility] [address] [place] [address] * SURGICAL PATHOLOGY (03/21/2024 11:35 EDT) Note to Patient The following pathology results have been interpreted by your pathologist and may be available to you before your health provider has had the opportunity to review them. Please allow time for your provider to receive these results and explore management options, if applicable. 03/24/2024 10:36 EDT [facility] Final Diagnosis A. [...] and cecal polyp is a single firm nñio focally brown tissue fragment (0.5 x 0.4 x 0.3 cm). Submitted intact in F1. G. Received in formalin labelled with proper patient identification (initials P, E) and colon polyp @ 80 cm is a single soft niño focally brown tissue fragment (0.5 x 0.3 x 0.2 cm). Submitted intact in G1. Luis Torres 03/22/2024 9:36 03/24/2024 10:36 EDT [facility] Resident/Estuardo w: Luis Felipe Bragg DO 03/24/2024 10:36 EDT [facility] Performing Lab [facility] 10:36 EDT [facility] Scanned Images 03/24/2024 10:36 EDT [facility] Tissue POLYP OF [...] 8:19 EDT Consuelo Guerrero DO PATHOLOGY ORDERABLES [facility] SERVICES [address] [place] [address] from Last 3 Months Care Teams Research Nurse Relationship Specialty Start Date End Date Ashley Chavez ARNP [address] [place] [address] PCP - General 07/11/10
--- OUTSIDE RECORDS SUMMARY | 2024-05-02 15:08 | XMS_ITS | Encounter Summary ---
Author Organization [facility] Address [address] [place] [address] Care Team Providers Care Color Maker Name Role Phone Scott, Ashley WILLIAM Primary Care Provider [phone] Encounter Details Date Type Department Care Team (Late st Contact Info) Description 03/21/2024 Lab Requisition [facility] Pathology & Laboratory Medicine - [address] [address] Consuelo Guerrero, DO [address] [place], [place] [address] Encounter for other general examination Social History [...] 13:00 EDT) LORY Negative 03/21/2024 22:31 EDT [facility] BLOOD BANK Blood VENOUS BLOOD / Unknown 03/21/2024 13:00 EDT 03/21/2024 21:51 EDT Consuelo Guerrero DO BLOOD BANK TESTS [facility] BLOOD B[facility] [address] [place] [address] documented in this encounter Visit Diagnoses Diagnosis Encounter for other general examination documented in this encounter Care Teams Color Maker Relationship Specialty Start Date End Date Ashley Chavez ARNP [address] [place] [address] PCP - General 07/11/10 documented as of this encounter
--- OUTSIDE RECORDS SUMMARY | 2024-05-02 15:08 | XMS_ITS | Encounter Summary ---
Author Organization [facility] Address [address] [place] [address] Care Team Providers Care Machine Umbrella Tipper Name Role Phone Ashley Chavez Primary Care Provider [phone] Encounter Details Date Type Department Care Team (Late st Contact Info) Description 05/12/2022 Lab Requisition [facility] Pathology & Laboratory Medicine - [address] [id number] Outr Resulting Lab, Provider Social History Tobacco [...] Hold Hold 05/12/2022 22:46 EDT [facility] Blood VENOUS BLOOD / Unknown 05/12/2022 14:32 EDT 05/12/2022 21:40 EDT Provider Outr Resulting Lab LAB INFO SER VICE AND SUPPORT & PHONE RESULT Performing Organization Address [facility]/ZIP Co de Phone Number [facility] [address] [place] [address] * (ABNORMAL) HOMOCYSTEINE (05/12/2022 14:32 EDT) Homocysteine 14.7(H) 5.0 - 13.9 umol/L 05/13/2022 9:05 EDT [facility] Comment:Results may be false ly elevated if sample is not collected on ice or is not removed from cells within 1 hour of collection. Blood VENOUS BLOOD / Unknown 05/12/2022 14:32 EDT 05/12/2022 21:40 EDT Narrative [facility] - 05/13/2022 9:05 EDT Reference [...] [facility] Co de Phone Number [facility] [address] [place] [address] * HAPTOGLOBIN (05/12/2022 14:32 EDT) Pathologist [facility] Haptoglobin 138 32 - 197 mg/dL 05/13/2022 9:55 EDT [facility] Blood VENOUS BLOOD / Unknown 05/12/2022 14:32 EDT 05/12/2022 21:36 EDT Provider Outr Resulting Lab CHEMISTRY & BLOOD GAS ORDERABLES Performing Organization Address [facility] [[email or web address]] Co de Phone Number [facility] [address] [place] [address] * (ABNORMAL) ANTI NUCLEAR AB (FRANCISCO), IFA (05/12/2022 14:32 EDT) FRANCISCO Interpretation Positive(A) Negative 05/13/2022 14:44 EDT [facility] Comment: Result is equal to [...] 1:5120 Speckled 05/13/2022 14:44 EDT [facility] Blood VENOUS BLOOD / Unknown 05/12/2022 14:32 EDT 05/12/2022 21:36 EDT Narrative [facility] - 05/13/2022 14:44 EDT Results were obtained with the INOVA NOVA Lite HEp-2 FRANCISCO Kit by indirect immunofluorescence. Provider Outr Resulting Lab IMMUNOLOGY A ND SEROLOGY ORDERABLES [facility] [address] [place] [address] documented in this encounter Visit Diagnoses Not on filedocumented in this encounter Care Teams Machine Umbrella Tipper Relationship Specialty Start Date End Date Ashley Chavez ARNP [address] [place] [address] PCP - General 07/11/10 documented as of this encounter
--- OUTSIDE RECORDS SUMMARY | 2024-05-02 15:09 | XMS_ITS | Encounter Summary ---
[place] [address] Care Team Providers Care Seam Steamer Name Role Phone Magdalena Acosta MD Primary Care Provider [phone] Encounter Details Date Type Department Care Team (Latest Contact Info) Description 10/05/2023 10:52 AM EST - 10/05/2023 11:59 PM [facility] Hospital [place] [address] Mixed connective tissue disease Discharge Disposition: Home Social History Tobacco Use Types Packs/Day Years Used Date Smoking Tobacco: Never Smokeless Tobacco: Never Alcohol Use Standard Drinks/Week Comments No 0 (1 standard drink = 0.6 oz pur e alcohol) none [facility] Inpatient Questions Answer Date Recorded Does Anyone [...] Contact Info) Description 05/12/2024 9:00 AM EDT Laboratory Appointment Lab at [facility] Hematology Oncology [address] [place] [address] 05/12/2024 10:00 AM EDT Office Visit Hematology [place] [address] Markel Borjas MD [facility] [address] HEMATOLOGY [place] [address] 03/01/2025 4:15 PM EDT Office Visit Dermatology at [place] [address] [place] [address] Marek Bonilla MD [address] [place] [address] documented as of this encounter Procedures Procedure [...] PFT FEV1/FVC Pre-BD Z-Score 0 COMPAS PFT GON92-49 Actual Pre-BD 2.41 % COMPAS PFT PZI28-02 Predicted 1.8 % COMPAS PFT RTW67-76 Pre-BD % of Predicted 134 % COMPAS PFT EQD78-68 Pre-BD Z-Score 0.81 COMPAS PFT DLCO Hb [...] tissue documented in this encounter Care Teams Seam Steamer Relationship Specialty Start Date End Date Magdalena Acosta MD [address] [place] [address] PCP - General Family Medicine 02/05/23 documented as of this encounter
--- OUTSIDE RECORDS SUMMARY | 2024-05-02 15:09 | XMS_ITS | Encounter Summary ---
Author Organization [facility] Address [address] [place] [address] Care Team Providers Care Inspector Golf Ball Name Role Phone Unavailable Primary Care Provider Unavailabl e Encounter Details Date Type Department Care Team (Late st Contact Info) Description 06/29/2007 Results Only [facility] - Maple conversion [address] [place] [address] Sánchez Acevedo MD [address] [place] [address] Social History Tobacco Use Types Packs/Day Years [...] ? 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 Accession #: ? [id number] ? : ? 1955 (Age: 51) ??F [...] covered by a smooth white serosa. ??Three field representative/health education sections of the gallbladder are submitted in one cassette. ??(Sriram Elias/[facility] End of Report [facility] 06/29/2007 06/29/2007 21: 23 EST Sánchez Acevedo MD PATHOLOGY ORDERABLE S [facility] [address] [place] [address] documented in this encounter Visit Diagnoses Not on filedocumented in this encounter
--- OUTSIDE RECORDS SUMMARY | 2024-05-02 15:09 | XMS_ITS | Encounter Summary ---
Author Organization [facility] Address [address] [place] [address] Care Team Providers Care Mussel Opener Name Role Phone Unavailable Primary Care Provider Unavailabl e Encounter Details Date Type Department Care Team (Late st Contact Info) Description 07/08/2010 Results Only [facility] Non-Invasive Cardiology - [facility] [address] [place] [address] Ashley Chavez, WILLIAM [address] [place] [address] Social History Tobacco Use Types Packs/Day Years [...] ? 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 Accession #: ? [id number] ? : ? 1955 (Age: 54) ??F [...] Ashley THOMAS PATHOLOGY ORDERABLES [facility] [address] [place] [address] documented in this encounter Visit Diagnoses Not on filedocumented in this encounter
--- OUTSIDE RECORDS SUMMARY | 2024-05-02 15:09 | XMS_ITS | Encounter Summary ---
Author Organization [facility] Address [address] [place] [address] Care Team Providers Care Press Tender Smoke Signal Name Role Phone Unavailable Primary Care Provider Unavailabl e Encounter Details Date Type Department Care Team (Late st Contact Info) Description 07/08/2010 10:55 EST - 07/08/2010 10:56 EST Hospital Encounter [facility] - Other [address] [place] [address] Ashley Chavez, WILLIAM [address] [place] [address] Discharge Disposition: Home or Self Care Social [...]
--- OUTSIDE RECORDS SUMMARY | 2024-05-02 15:09 | XMS_ITS | Encounter Summary ---
Author Organization [facility] Address [address] [place] [address] Care Team Providers Care State'S Attorney Name Role Phone Ashley Chavez Primary Care Provider [phone] Encounter Details Date Type Department Care Team (Late st Contact Info) Description 04/29/2022 Lab Requisition [facility] Pathology & Laboratory Medicine - [address] [address] Outr Resulting Lab, Provider Social History Tobacco [...] Antibody 1.6 <20.0 Units 04/30/2022 12:23 EDT [facility] Comment: ? Negative: <20.0 [...] A ND SEROLOGY ORDERABLES Performing Organization Address [facility] de Phone Number [facility] [address] [place] [address] * SSA ANTIBODIES BY DOMO (04/29/2022 7:51 EDT) SSA Antibody 1.5 <20.0 Units 04/30/2022 12:22 EDT [facility] Comment: ? Negative: <20.0 [...] A ND SEROLOGY ORDERABLES Performing Organization Address [facility] de Phone Number [facility] [address] [place] [address] documented in this encounter Visit Diagnoses Not on filedocumented in this encounter Care Teams State'S Attorney Relationship Specialty Start Date End Date Ashley Chavez ARNP [address] [place] [address] PCP - General 07/11/10 documented as of this encounter
--- OUTSIDE RECORDS SUMMARY | 2024-05-02 15:09 | XMS_ITS | Encounter Summary ---
Author Organization [facility] Address [address] [place] [address] Care Team Providers Care Brush And Broom Clipper Name Role Phone Ashley Chavez Primary Care Provider [phone] Encounter Details Date Type Department Care Team (Late st Contact Info) Description 06/23/2016 Results Only [facility] [phone] Matthew Acevedo, DO [address] [facility] [address] [place] [address] Social History Tobacco Use Types Packs/Day [...] ? 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 Accession #: ? [id number] : ? 1955 (Age: 60) ??F ?Collect Date: ? 06/23/2016 Location: ? [facility] ? Receive Date: ? 06/24/2016 Provider: ? MATTHEW ACEVEDO DO Copy to: ?WINTER TITUSP MARIO ALBERTO AGTES MD ? INTERPRETATION: Normal female karyotype. There [...] ??400 ?? KARYOTYPE: 46,XX[25] End of Report [facility] 06/23/2016 06/24/2016 Matthew Acevedo DO PATHOLOGY ORDER JODIE [facility] [address] [place] [address] * FLOW CYTOMETRY (06/23/2016 0:00 EST) Pathology Report: FLOW CYTOMETRY REPORT Reports generated via electronic interface contain original data; however they are lacking the format of the original report. Caution should be taken when reading/interpreting unformatted reports. Name: ? 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 Accession #: ? [id number] : ? 1955 (Age: 60) ??F ?Collect Date: ? 06/23/2016 00:00 Location: ? [facility] ? Receive Date: ? 06/24/2016 08:00 Provider: ?MATTHEW ACEVEDO DO Copy to: ?WINTER HANKINS PIPE CHIPPER MARIO ALBERTO RAMOS MD ? FINAL IMMUNOPHENOTYPIC INTERPRETATION: ? Bone marrow, flow cytometric analysis: -No immunophenotypic evidence of a clonal cell population. ??See comment. ? COMMENT: The results of flow cytometry show no immunophenotypic evidence of involvement by a clonal lymphoproliferative or myeloproliferative disorder. ??Correlation of these findings with morphologic and clinical data is essential. ??Please refer to pathology report number [id number] for morphologic details. ? Document reviewed and [...] the Department of Pathology and Laboratory Medicine, [place] ??It has not been cleared or [...] clinical laboratory testing. End of Report ?? [facility] 06/23/2016 06/24/2016 8:0 0 EST Matthew Acevedo DO PATHOLOGY ORDER JODIE [facility] [address] [place] [address] * BONE MARROW/HEMPATH CONSULT (06/23/2016 0:00 EST) Pathology Report: BONE MARROW REPORT Reports generated via electronic interface contain original data; however they are lacking the format of the original report. Caution should be taken when reading/interpreting unformatted reports. Name: ? 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 Accession #: ? [id number] : ? 1955 (Age: 60) ??F ?Collect Date: ? 06/23/2016 Location: ? [facility] ? Receive Date: ? 06/24/2016 Provider: ? MATTHEW ACEVEDO DO Copy to: ?WINTER HANKINS PIPE CHIPPER MARIO ALBERTO RAMOS MD ? DIAGNOSIS: Peripheral [...] #1: Aggregate biopsy length: 8 mm with steam cleaner trabeculae of lamellar bone, cellular bone marrow, [...] SEE ABOVE DISCUSSION Lambda (polyclonal, Dako) ??(B1): Heil (polyclonal, Dako) ??(B1): Biopsy (decalcified) #2: Aggregate biopsy length: 8 mm with steam cleaner trabeculae of lamellar bone, cellular bone marrow, [...] (M115, Leica) ??(B2): Lambda (polyclonal, Dako) ??(B2): Heil (polyclonal, Dako) ??(B2): NOTE: ??One or more [...] ? 1% Blasts ?1% Special Studies Cytogenetics ([id number]): Pending. Flow Cytometry ([id number]): No immunophenotypic evidence of a clonal cell population. ? End of Report [facility] 06/23/2016 06/24/2016 Matthew Acevedo DO PATHOLOGY ORDER JODIE [facility] [address] [place] [address] documented in this encounter Visit Diagnoses Not on filedocumented in this encounter Care Teams Brush And Broom Clipper Relationship Specialty Start Date End Date Ashley Chavez ARNP [address] [place] [address] PCP - General 07/11/10 documented as of this encounter
--- OUTSIDE RECORDS SUMMARY | 2024-05-02 15:09 | XMS_ITS | Encounter Summary ---
[place] [address] Care Team Providers Care Station Installer And Repairer Name Role Phone Magdalena Acosta MD Primary Care Provider [phone] Reason for Visit * Reason Comments Annual Exam Encounter Details Date Type Department Care Team (Late st Contact Info) Description 02/22/2024 4:15 PM EDT Office Visit Dermatology at [address] [phone] Marek Bonilla MD [address] [facility] A DERMATOLOGY [place], [place] [id number] Seborrheic keratosis; Rosacea; Nevus Social History Tobacco [...] cutaneous and ocular 3. Previously told by manager validation that she had corneal tears from her [...] 9:00 AM EDT Laboratory Appointment Lab at [facility] Hematology Oncology [address] [place] [address] 05/12/2024 10:00 AM EDT Office Visit Hematology [place] [address] Markel Borjas MD [facility] [address] H[place] [address] 03/01/2025 4:15 PM EDT Office Visit Dermatology at [place] [address] [facility] [address] Marek Bonilla MD [address] [facility], [place] [address] documented as of this encounter Visit Diagnoses Diagnosis Seborrheic keratosis Other seborrheic keratosis Rosacea Nevus Benign neoplasm of skin, site unspecified documented in this encounter Care Teams Station Installer And Repairer Relationship Specialty Start Date End Date Magdalena Acosta MD [address] [place] [address] PCP - General Family Medicine 02/05/23 documented as of this encounter
--- OUTSIDE RECORDS SUMMARY | 2024-05-02 15:09 | XMS_ITS | Encounter Summary ---
[place] [address] Care Team Providers Care Flap Presser Name Role Phone Magdalena Acosta MD Primary Care Provider [phone] Reason for Referral * Consultation (Routine) - Authorized Specialty Diagnoses / Procedures Referred By Contac t Referred To Contact Hematology and Oncology Diagnoses Anemia, unspecified type Consuelo Guerrero DO [address] [place] [address] [address] [place] [address] [facility] Hem Onc [address] [place] [address] Referral ID Status Reason Start Date Expiration Date Visits Requested Visits Authorized [id number] Authorized Consult, Test & Treat 04/11/2024 04/11/2025 1 1 Encounter Details Date Type Department Care Team (Late st Contact Info) Description 04/11/2024 Transcribe Orders eDH Incoming Referrals [phone] Consuelo Guerrero DO [address] [place] [address] [address] [place] [address] Anemia, unspecified type Social History [...] 9:00 AM EDT Laboratory Appointment Lab at [facility] Hematology Oncology [address] [place] [address] 05/12/2024 10:00 AM EDT Office Visit Hematology [place] [address] Markel Borjas MD [facility] [address] H[place]AT[place] [address] 03/01/2025 4:15 PM EDT Office Visit Dermatology at [address] [address] Marek Bonilla MD [address] [facility] [place] [place] [address] Scheduled Referrals Name Type Priority Associated Diagnoses Orde r Schedule Referral to Hematology and Oncology Outpatient Referral Routine Anemia, unspecified type Ordered: 04/11/2024 documented as of this encounter Visit Diagnoses Diagnosis Anemia, unspecified type documented in this encounter Care Teams Flap Presser Relationship Specialty Start Date End Date Magdalena Acosta MD [address] [place] [address] PCP - General Family Medicine 02/05/23 documented as of this encounter
--- OUTSIDE RECORDS SUMMARY | 2024-05-02 15:09 | XMS_ITS | Encounter Summary ---
Author Organization [facility] Address [address] [place] [address] Care Team Providers Care Drill Grinder Name Role Phone Unavailable Primary Care Provider Unavailabl e Encounter Details Date Type Department Care Team (Late st Contact Info) Description 03/24/2007 11:06 EDT - 03/24/2007 11:59 EDT Hospital Encounter [facility] - Other [address] [place] [address] Ashley Chavez ARNP [address] [place] [address] Discharge Disposition: Home or Self Care Social [...]
--- OUTSIDE RECORDS SUMMARY | 2024-05-02 15:09 | XMS_ITS | Encounter Summary ---
Author Organization [place] [address] Care Team Providers Care Manufacturing Production Manager Name Role Phone Magdalena Acosta MD Primary Care Provider [phone] Encounter Details Date Type Department Care Team (Late st Contact Info) Description 12/02/2023 11:15 AM EDT Office [place] [address] Magdalena Peralta MD [facility] [place] [address] Mixed connective tissue disease Social History Tobacco [...] 1:5120 speckled; VIC negative; Myositis panel with THAI MASSEUR ab 149.1 (positive); Anti U1RNP IgG 119; [...] list of questions that she sent via [facility] ahead of her visit, which we discussed [...] exposure. She has an appointment with her Distresser scheduled in January. (Dr Bonilla in [place]) ROS (positives in bold): Gen: no fevers, [...] but I encouraged her to contact her Distresser to see if she could have her [...] Dr. Tanisha Peralta MD Rheumatology Fellow Pager: [phone] * Federico Yee MD - 12/02/2023 11:15 [...] 9:00 AM EDT Laboratory Appointment Lab at [facility] Hematology Oncology [address] [place] [address] 05/12/2024 10:00 AM EDT Office Visit Hematology [place] [address] Markel Borjas MD [facility] [place] [address] 03/01/2025 4:15 PM EDT Office Visit Dermatology at [address] [phone] Marek Bonilla MD [address] [place] [address], [facility] [place] [address] Scheduled Orders Name Type Priority Associated Diagnoses Orde r Schedule EKG 12 Lead ECG Routine Mixed connective tissue disease Expected: 12/02/2023, Expires: 06/03/2024 documented as of this encounter Visit Diagnoses Diagnosis Mixed connective tissue disease Other specified diffuse disease of connective tissue documented in this encounter Care Teams Manufacturing Production Manager Relationship Specialty Start Date End Date Magdalena Acosta MD [address] [place] [address] PCP - General Family Medicine 02/05/23 documented as of this encounter
--- OUTSIDE RECORDS SUMMARY | 2024-05-02 15:09 | XMS_ITS | Encounter Summary ---
[place] [address] Care Team Providers Care Insurance Underwriting Assistant Name Role Phone Magdalena Acosta MD Primary Care Provider [phone] Encounter Details Date Type Department Care Team (Latest Contact Info) Description 07/08/2023 12:35 PM EST Laboratory Appointment Lab [address] [place] [phone] S/P TAVR (transcatheter aortic valve replacement); Severe [...] 9:00 AM EDT Laboratory Appointment Lab at [facility] Hematology Oncology [address] [place] [address] 05/12/2024 10:00 AM EDT Office Visit Hematology [place] [phone] Markel Borjas MD [facility] [address] [place] [address] 03/01/2025 4:15 PM EDT Office Visit Dermatology at [place] [address] [place] [phone] Marek Bonilla MD [address] [place] [address] documented as of this encounter Procedures Procedure [...] 11:56 AM EST) Neutrophil % 73.2 % [facility] Neutrophil Absolute 3.40 1.70 - 6.10 x10(3)/mc L [facility] Lymph % 16.1 % [facility] Lymphocytes Abs 0.8(L) 0.9 - 3.2 x10(3)/mc L [facility] Monocyte % 9.7 % [facility] LAB[facility] Monocyte Abs 0.4 0.3 - 0.9 x10(3)/mc L [facility] Eos % 0.4 % [facility] Eosinophils Abs 0.0 0.0 - 0.4 x10(3)/mc L [facility] Basophil % 0.4 % [facility] IT[facility] LABOR[facility] Baso Absolute 0.0 0.0 - 0.1 x10(3)/ L [facility] Immature Gran % 0.20 % [facility] Comment: Immature granulocytes(IG's)percentage and absolute count will include metamyelocytes, myelocytes, and promyelocytes. Blood smears from CBCs yielding IG's will be scanned manually for concordance. If this scan disagrees with the automated IG or if promyelocytes are noted, a manual differential will be performed. Immature Gran Absolute 0.01 0.00 - 0.04 x10(3)/ L [facility] Blood 07/08/2023 11:5 6 AM EST 07/08/2023 12:02 PM EST Narrative Resulting Agency Comment Spec In Lab [facility] HEMATOLOGY ORDERABLE S [facility] [place] [address] * (ABNORMAL) Hemogram (07/08/2023 11:56 AM EST) White Blood Cell 4.6 4.0 - 9.5 x10(3)/[facility] LABORATORY Red Blood Cell 3.34(L) 4.00 - 5.21 x10(6)/[facility]ATORY Hemoglobin 11.0(L) 11.7 - 15.5 g/dL [facility] Hematocrit 33.2(L) 35.7 - 45.8 % [facility] Mean Cell Volume 99.4(H) 82.6 - 94.4 fL [facility] Mean Cell Hemoglobin 32.9(H) 27.1 - 32.0 pg [facility] Mean Cell Hemoglobin Concentration 33.1 31.7 - 35.0 g/dL [facility] Platelet 166 145 - 357 x10(3)/[facility] LABORATORY RDW Standard Deviation 47.1(H) 37.0 - 46.0 fL [facility] RDW coefficient of variation 13.0 11.5 - 14.1 % [facility] Mean Platelet Volume 9.0 7.6 - 12.9 fL [facility] NRBC% auto 0.0 % [facility] ITAL LABORATORY NRBC Absolute 0.000 0.000 - 0.000 x10(3)/ L [facility] Blood 07/08/2023 11:5 6 AM EST 07/08/2023 12:02 PM EST Narrative Resulting Agency Comment Spec In Lab Minh [facility] HEMATOLOGY ORDERABLE S [facility] [place] [address] * (ABNORMAL) Comprehensive metabolic panel (non-fasting) (07/08/2023 11:56 AM EST) Glucose 93 65 - 199 mg/dL [facility] Comment:Diabetes: >=200 mg/d L plus symptoms Blood Urea Nitrogen 19(H) 8 - 18 mg/dL [facility] Creatinine 0.81 0.70 - 1.20 mg/dL [facility] Sodium 142 135 - 145 mmol/L [facility] Potassium 3.8 3.5 - 5.0 mmol/L [facility] Comment: Please note: ??Patients with WBC >100,000 may have falsely elevated Potassium levels. ??For accurate Potassium quantification in these patients send serum separator tube (gold top) for subsequent determinations. ??Contact the Clinical Chemistry Laboratory if there are any questions. Chloride 104 98 - 107 mmol/L [facility] Carbon Dioxide 26 22 - 31 mmol/L [facility] Anion Gap 12 5 - 15 mmol/L [facility] Calcium 10.2 8.5 - 10.5 mg/dL [facility] Protein, Total 7.4 6.1 - 8.0 g/dL [facility] Albumin 4.1 3.2 - 5.2 g/dL [facility] Aspartate Aminotransferase 24 0 - 30 unit/L [facility] Alanine Aminotransferase 12 0 - 30 unit/L [facility] Alkaline Phosphatase 93 35 - 105 unit/L [facility] Bilirubin, Total 0.3 0.2 - 1.3 mg/dL [facility] Est Glomerular Filtration Rate 80 >=60 mL/min/1. 73 m?? [facility] Comment: This patient's estimated GFR was [...] Lab Alirio Esparza MD [place] [address] documented in this encounter Visit Diagnoses Diagnosis S/P TAVR (transcatheter aortic valve replacement) Severe aortic stenosis Aortic valve disorders documented in this encounter Care Teams Insurance Underwriting Assistant Relationship Specialty Start Date End Date Magdalena Acosta MD [address] [place] [address] PCP - General Family Medicine 02/05/23 documented as of this encounter
--- OUTSIDE RECORDS SUMMARY | 2024-05-02 15:09 | XMS_ITS | Encounter Summary ---
Author Organization [facility] [place] [address] Care Team Providers Care Waterside Worker Name Role Phone Magdalena Acosta MD Primary Care Provider [phone] Encounter Details Date Type Department Care Team [...] 9:00 AM EDT Laboratory Appointment Lab at [facility] Hematology Oncology [address] [place] [address] 05/12/2024 10:00 AM EDT Office Visit Hematology [place] [address] Markel Borjas MD [facility] [place] [address] 03/01/2025 4:15 PM EDT Office Visit Dermatology at [address] [place] [phone] Marek Bonilla MD [address] [place] [address] documented as of this encounter Visit Diagnoses Not on filedocumented in this encounter Care Teams Waterside Worker Relationship Specialty Start Date End Date Magdalena Acosta MD [address] [place] [address] PCP - General Family Medicine 02/05/23 documented as of this encounter
--- OUTSIDE RECORDS SUMMARY | 2024-05-02 15:09 | XMS_ITS | Encounter Summary ---
Author Organization [facility] [place] [address] Care Team Providers Care Curriculum Coach Name Role Phone Magdalena Acosta MD Primary Care Provider [phone] Encounter Details Date Type Department Care Team [...] 9:00 AM EDT Laboratory Appointment Lab at [facility] Hematology Oncology [address] [place] [address] 05/12/2024 10:00 AM EDT Office Visit [place] [address] Markel Borjas MD [facility] [place] [address] 03/01/2025 4:15 PM EDT Office Visit Dermatology at [place] [address] [place] [address] Marek Bonilla MD [address], [place] [address] documented as of this encounter Visit Diagnoses Not on filedocumented in this encounter Care Teams Curriculum Coach Relationship Specialty Start Date End Date Magdalena Acosta MD [address] [place] [address] PCP - General Family Medicine 02/05/23 documented as of this encounter
--- OUTSIDE RECORDS SUMMARY | 2024-05-02 15:09 | XMS_ITS | Encounter Summary ---
[place] [address] Care Team Providers Care Screwmaker Automatic Name Role Phone Magdalena Acosta MD Primary Care Provider [phone] Reason for Visit * Reason Onset Date Comments Pre Procedure Call 03/01/2024 DAPT hold for EGD and colo? Encounter Details Date Type Department Care Team (Late st Contact Info) Description 03/01/2024 Telephone Cardiology at [address] [phone] Cynthia Monsalve RN Pre Procedure Call (DAPT [...] safe. Jay Message above left with Yenifer (project scheduler), who would be leaving this note in patient's chart for providers to schedule patient. No further questions or needs at this time. This nurse stated, note will be placed regarding this call in our chart for patient. Kezia Whitney RN, BSN Ambulatory Cardiology Clinic, [facility] [phone] * Telephone Encounter - Cynthia Monsalve RN [...] 9:00 AM EDT Laboratory Appointment Lab at [facility] [place]ematology Oncology [address] [place] [address] 05/12/2024 10:00 AM EDT Office Visit Hematology [place] [address] Markel Borjas MD [facility] [address] HEMATOLOGY [place] [address] 03/01/2025 4:15 PM EDT Office Visit Dermatology at [place] [address] [place] [address] Marek Bonilla MD [address], [place] [address] documented as of this encounter Visit Diagnoses Not on filedocumented in this encounter Care Teams Screwmaker Automatic Relationship Specialty Start Date End Date Magdalena Acosta MD [address] [place] [address] PCP - General Family Medicine 02/05/23 documented as of this encounter
--- OUTSIDE RECORDS SUMMARY | 2024-05-02 15:09 | XMS_ITS | Encounter Summary ---
Author Organization [facility] Address [address] [place] [address] Care Team Providers Care Dry Roaster Name Role Phone Ashley Chavez Primary Care Provider [phone] Encounter Details Date Type Department Care Team (Latest Contact Info) Description 05/12/2019 13:18 EDT - 05/12/2019 23:59 EDT Hospital Encounter [address] [address] Unknown, Provider, Discharge Disposition: Home or Self [...] filedocumented in this encounter Care Teams Dry Roaster Relationship Specialty Start Date End Date Ashley Chavez ARNP [address] [place] [address] PCP - General 07/11/10 documented as of this encounter
--- OUTSIDE RECORDS SUMMARY | 2024-05-02 15:09 | XMS_ITS | Encounter Summary ---
Author Organization [facility] [place] [address] Care Team Providers Care Highway Patrol Officer Name Role Phone Magdalena Acosta MD Primary Care Provider Encounter Details Date Type Department Care Team (Late st Contact Info) Description 07/08/2023 10:15 AM EST Office Visit Cardiology at [address] [phone] Severe aortic stenosis Social History Tobacco Use Types Packs/Day Years Used Date Smoking Tobacco: Never Smokeless Tobacco: Never Alcohol Use Standard Drinks/Week Comments No 0 (1 standard drink = 0.6 oz pur e alcohol) none [facility] Inpatient Questions Answer Date Recorded Does Anyone [...] 9:00 AM EDT Laboratory Appointment Lab at [facility] Hematology Oncology [address] [place] [address] 05/12/2024 10:00 AM EDT Office Visit Hematology [place] [address] Markel Borjas MD [facility] [address] HEMATOLOGY [place] [address] 03/01/2025 4:15 PM EDT Office Visit Dermatology at [place] [address] [place] [address] Marek Bonilla MD [address], [place] [address] documented as of this encounter Procedures Procedure [...] (Bezet) 449 ms MUSE SYSTEM Calculated P [place] 66 degrees MUSE SYSTEM Calculated R [place] 60 degrees MUSE SYSTEM Calculated T [place] 53 degrees MUSE SYSTEM INTERPRETATION Normal sinus rhythm Minimal voltage criteria for LVH, may be normal variant ( Sokolow-Orozco ) ST & T wave abnormality, consider lateral ischemia ??vs. repolarization abnormality from LVH Abnormal ECG When compared with ECG of 13-MAY-2023 09:22, Premature ventricular complexes are no longer Present Minimal criteria for Septal infarct are no longer Present Confirmed by Maxx Best ([id number]) on 07/09/2023 10:07:22 AM MUSE SYSTEM 07/08/2023 10:2 7 AM EST 07/09/2023 10:07 AM EST Brody Dale Eusebio OSBORN ECG ORDERABLES [employer] documented in this encounter Visit Diagnoses Diagnosis Severe aortic stenosis Aortic valve disorders documented in this encounter Care Teams Highway Patrol Officer Relationship Specialty Start Date End Date Magdalena Acosta MD [address] [place] [address] PCP - General Family Medicine 02/05/23 documented as of this encounter
--- OUTSIDE RECORDS SUMMARY | 2024-05-02 15:09 | XMS_ITS | Encounter Summary ---
Author Organization [facility] Address [address] [place] [address] Care Team Providers Care Surface Supply Breathing Apparatus Name Role Phone Unavailable Primary Care Provider Unavailabl e Encounter Details Date Type Department Care Team (Late st Contact Info) Description 03/24/2007 Results Only [facility] Non-Invasive Cardiology - [facility] [address], [place] [address] Ashley Chavez ARNP [address] [place] [address] Social History Tobacco Use Types Packs/Day Years [...] ? 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 Accession #: ? [id number] : ? 1955 (Age: 51) ??F ?Collect Date: ? 03/24/2007 Location: ? [facility] ? Receive Date: ? 03/28/2007 Provider: ?ASHLEY THOMAS Copy to: ? Specimen/Source: ?ThinPrep Pap Test, Endocervix, processed on [employer]pt[employer] ThinPrep Imaging System, with manual evaluation Last [...] Ashley THOMAS PATHOLOGY ORDERABLES PAUL ARELLANO [address] [place] [address] documented in this encounter Visit Diagnoses Not on filedocumented in this encounter
--- OUTSIDE RECORDS SUMMARY | 2024-05-02 15:09 | XMS_ITS | Encounter Summary ---
Author Organization [facility] [place] [address] Care Team Providers Care Western Philosophy Professor Name Role Phone Magdalena Acosta MD Primary Care Provider [phone] Reason for Referral * Diagnostic Test (Routine) - Closed Specialty Diagnoses / Procedures Referred By Contac t Referred To Contact Cardiology Diagnoses S/P TAVR (transcatheter aortic valve replacement) Procedures Echocardiogram Transthoracic Vinod Juárez PA [facility] [place] [address] [facility] [place] [address] Referral ID Status Reason Start Date Expiration Date V isits Requested Visits Authorized [id number] Closed Specialty Service Requested 05/22/2023 05/21/2024 1 1 Reason for Visit * Diagnostic Test (Routine) - Closed Specialty Diagnoses / Procedures Referred By Contac t Referred To Contact Cardiology Diagnoses S/P TAVR (transcatheter aortic valve replacement) Procedures Echocardiogram Transthoracic Vinod Juárez PA [facility] [place] [address] [facility] [place] [address] Referral ID Status Reason Start Date Expiration Date V isits Requested Visits Authorized [id number] Closed Specialty Service Requested 05/22/2023 05/21/2024 1 1 Encounter Details Date Type Department Care Team (Latest Contact Info) Description 07/08/2023 10:19 AM EST - 07/08/2023 11:59 PM EST Hospital Encounter [place] [address] Alirio Esparza MD S/P TAVR (transcatheter aortic [...] [facility] [address] [place] [address] 05/12/2024 10:00 AM EDT Office Visit [place] [address] Markel Borjas MD [facility] [address] [place] [address] 03/01/2025 4:15 PM EDT Office Visit Dermatology at [place] [address] [place] [address] Marek Bonilla MD [address] [facility] [place] [address] documented as of this encounter Procedures Procedure [...] EST Narrative 07/08/2023 12:26 PM EST 1 [place] [address] ? Echocardiogram Report Name: ONESIMO THACKER ?Study Date: 07/08/2023 10:31 AMBP: 118/60 mmHg ? Patient Location: : 1955 ? Height: 155 cm ? Account: [id number] Age: 67 yrs ? Weight: 74 kg Gender: Female ?BSA: 1.7 m2 Ordering Physician: ALIRIO ESPARZA Referring Physician: VINOD JUÁREZ Performed By: Felicia Norris RDCS Reason For Study: S/P TAVR [facility]am [facility] Interpretation Summary Left ventricular systolic [...] no significant change (post-procedure). Procedure Limited - 26580. Doppler - 01212. Color Doppler - 49007. Satisfactory quality. This study is limited because [...] Note Lee Kincaid MD - 07/08/2023 1 [place] [address] Echocardiogram Report Name: ANDREWONESIMO Study Date: 310:31 AMBP: 118/60 mmHg Patient Location: : 1955 Height: 155 cm Account: [id number] Age: 67 yrs Weight: 74 kg Gender: Female BSA: 1.7 m2 Ordering Physician: ALIRIO ESPARZA Referring Physician: VINOD JUÁREZ Performed By: Felicia Norris RDCS Reason For Study: S/P TAVR Exam Location: [facility]. Interpretation Summary Left ventricular systolic [...] is nosignificant change (post-procedure). Procedure Limited - 28656. Doppler - 10936. Color Doppler - 29265. Satisfactoryquality. This study is limited because of [...] replacement) documented in this encounter Care Teams Western Philosophy Professor Relationship Specialty Start Date End Date Magdalena Acosta MD [address] [place] [address] PCP - General Family Medicine 02/05/23 documented as of this encounter
--- OUTSIDE RECORDS SUMMARY | 2024-05-02 15:09 | XMS_ITS | Encounter Summary ---
Author Organization [facility] [place] [address] Care Team Providers Care Line Director Name Role Phone Magdalena Acosta MD Primary Care Provider [phone] Encounter Details Date Type Department Care Team [...] AM EDT Laboratory Appointment Lab at [facility] [place] On[place] [address] [place] [address] 05/12/2024 10:00 AM EDT Office Visit Hematology [place] [address] Markel Borjas MD [facility] [address] [place] [address] 03/01/2025 4:15 PM EDT Office Visit Dermatology at [place] [address] [place] [address] Marek Bonilla MD [address], [place] [address] documented as of this encounter Visit Diagnoses Not on filedocumented in this encounter Care Teams Line Director Relationship Specialty Start Date End Date Magdalena Acosta MD [address] [place] [address] PCP - General Family Medicine 02/05/23 documented as of this encounter
--- OUTSIDE RECORDS SUMMARY | 2024-05-02 15:09 | XMS_ITS | Encounter Summary ---
Author Organization [facility] [place] [address] Care Team Providers Care Clinical Care Coordinator Name Role Phone Magdalena Acosta MD Primary Care Provider [phone] Encounter Details Date Type Department Care Team [...] 9:00 AM EDT Laboratory Appointment Lab at [facility] [place] Oncology [address] [place] [address] 05/12/2024 10:00 AM EDT Office Visit Hematology [place] [address] Markel Borjas MD [facility] [place] [address] 03/01/2025 4:15 PM EDT Office Visit Dermatology at [place] [address] [place] [address] Marek Bonilla MD [address], [address] [place] [address] documented as of this encounter Visit Diagnoses Not on filedocumented in this encounter Care Teams Clinical Care Coordinator Relationship Specialty Start Date End Date Magdalena Acotsa MD [address] [place] [address] PCP - General Family Medicine 02/05/23 documented as of this encounter
--- OUTSIDE RECORDS SUMMARY | 2024-05-02 15:09 | XMS_ITS | Encounter Summary ---
Author Organization [facility] [place] [address] Care Team Providers Care Wire Mesh Knitter Name Role Phone Magdalena Acosta MD Primary Care Provider [phone] Encounter Details Date Type Department Care Team [...] [facility] H[facility] Oncology [address] [place] [address] 05/12/2024 10:00 AM EDT Office Visit Hematology [place] [address] Markel Borjas MD [facility] [address] [place] [address] 03/01/2025 4:15 PM EDT Office Visit Dermatology at [place] [address] [place] [address] Marek Bonilla MD [address], [place] [place] [address] documented as of this encounter Visit Diagnoses Not on filedocumented in this encounter Care Teams Wire Mesh Knitter Relationship Specialty Start Date End Date Magdalena Acosta MD [address] [place] [address] PCP - General Family Medicine 02/05/23 documented as of this encounter
--- OUTSIDE RECORDS SUMMARY | 2024-05-02 15:09 | XMS_ITS | Encounter Summary ---
Author Organization [facility] Address [address] [place] [address] Care Team Providers Care Architecture Manager Name Role Phone Ashley Chavez Primary Care Provider [phone] Encounter Details Date Type Department Care Team (Late st Contact Info) Description 12/17/2021 Lab Requisition [facility] Pathology & Laboratory Medicine - [address] [address] Outr Resulting Lab, Provider Social History Tobacco [...] Lyme Ab Negative Negative 12/18/2021 10:37 EDT [facility] Blood VENOUS BLOOD / Unknown 12/17/2021 13:30 EDT 12/17/2021 21:32 EDT Provider Outr Resulting Lab IMMUNOLOGY A ND SEROLOGY ORDERABLES Performing Organization Address [facility] Co de Phone Number [facility] [address] [place] [address] * (ABNORMAL) ANTI NUCLEAR AB (FRANCISCO), IFA (12/17/2021 13:30 EDT) FRANCISCO Interpretation Positive(A) Negative 12/18/2021 16:06 EDT [facility] Comment: For titers greater [...] Pattern 1 1:1280 Speckled 12/18/2021 16:06 EDT [facility] Blood VENOUS BLOOD / Unknown 12/17/2021 13:30 EDT 12/17/2021 21:32 EDT Narrative [facility] - 12/18/2021 16:06 EDT Results were obtained with the INOVA NOVA Lite HEp-2 FRANCISCO Kit by indirect immunofluorescence. Provider Outr Resulting Lab IMMUNOLOGY A ND SEROLOGY ORDERABLES Performing Organization Address [facility] Co de Phone Number [facility] [address] [place] [address] documented in this encounter Visit Diagnoses Not on filedocumented in this encounter Care Teams Architecture Manager Relationship Specialty Start Date End Date Ashley Chavez ARNP [address] [place] [address] PCP - General 07/11/10 documented as of this encounter
--- OUTSIDE RECORDS SUMMARY | 2024-05-02 15:09 | XMS_ITS | Encounter Summary ---
Author Organization [facility] [place] [address] Care Team Providers Care Message Clerk Name Role Phone Magdalena Acosta MD Primary Care Provider [phone] Reason for Referral * Diagnostic Test (Routine) - New Request Specialty Diagnoses / Procedures Referred By Contac t Referred To Contact Cardiology Diagnoses S/P TAVR (transcatheter aortic valve replacement) Procedures Echocardiogram Transthoracic Antelmo Sharma MD [facility] [place] [address] [facility] [place] [address] Referral ID Status Reason Start Date Expiration Date Visits Requested Visits Authorized [id number] New Request Specialty Service Requested 12/16/2023 12/15/2024 1 1 Encounter Details Date Type Department Care Team (Late st Contact Info) Description 12/16/2023 Orders Only Cardiology at [address] [address] Antelmo Sharma MD [facility] [place] [address] S/P TAVR (transcatheter aortic valve [...] 9:00 AM EDT Laboratory Appointment Lab at [facility] Hematology Oncology [address] [place] [address] 05/12/2024 10:00 AM EDT Office Visit Hematology [place] [address] Markel Borjas MD [facility] [address] [place] [address] 03/01/2025 4:15 PM EDT Office Visit Dermatology at [place] [address] [address] [place] [address] Marek Bonilla MD [address] [place] [address] Scheduled Orders Name Type Priority Associated Diagnoses [...] replacement) documented in this encounter Care Teams Message Clerk Relationship Specialty Start Date End Date Magdalena Acosta MD [address] [place] [address] PCP - General Family Medicine 02/05/23 documented as of this encounter
--- OUTSIDE RECORDS SUMMARY | 2024-05-02 15:09 | XMS_ITS | Clinical Summary ---
Author Organization [facility] Address [facility] [address] Care Team Providers Care Bin Packer Name Role Phone Magdalena Acosta MD Primary Care Provider [phone] Allergies No known active allergies Medications Medication [...] fraction 05/08/2023 Mild coronary artery disease by [facility] 11/09/2022 Heart failure with reduced e [...] Description 04/11/2024 Transcribe Orders eDH Incoming Referrals [phone] Consuelo Guerrero, DO Anemia, unspecified type 03/01/2024 Telephone Cardiology at [address] [address] Cynthia Monsalve RN Pre Procedure Call (DAPT hold for EGD and colo?) 02/22/2024 4:15 PM EDT Office Visit Dermatology at [address] [place] [address] Marek Bonilla MD Seborrheic keratosis; Rosacea; Nevus [...] 9:00 AM EDT Laboratory Appointment Lab at [facility] Hematology Oncology [address] [place] [address] 05/12/2024 10:00 AM EDT Office Visit [place] [address] Markel Borjas MD [facility] [address] HEMATOLOGY [place] [address] 03/01/2025 4:15 PM EDT Office Visit Dermatology at [place] [address] [place] [address] Marek Bonilla MD [address], [place] [address] Health Maintenance Due Date Last [...] 06/05/2036 06/05/2021 Medical Devices Implanted Type Area Animal Surgeon Device Identifier Shelf Expiration Date Model / Serial / Lot Valve,Aor,Pericar d,Magna,25mm ([id number]) - [id number] Implanted:Qty: 1 on 09/21/2016 by Alirio Esparza MD at [facility] IMPLANTS N/A: Heart DO NOT USE [employer] - [id number] 06/02/2020 [id number] / / [id number] Cable,Blnt,Ss,38i n ([id number]) - [id number] Implanted:Qty: 4 on 09/21/2016 by Alirio Esparza MD at [facility] IMPLANTS N/A: Chest [employer] - [id number] 04/29/2021 [id number] / / [id number] Patch,Cav,Pericar d,2x5cm ([id number]) (Autoreq) - [id number] Implanted:Qty: 1 on 09/21/2016 by Alirio Esparza MD at [facility] IMPLANTS N/A: Heart DO NOT USE [employer] - [id number] 04/21/2018 [id number] / / [id number] Tavr-05/12/2023 Implanted:Qty: 1 on 05/12/2023 by Antelmo Sharma MD Other Heart [employer] - JAIME LI [id number] / [id number] / Description:JAIME [employer]IF[employer] NCES ABBY 3 ULTRA [...] EST) Glucose 93 65 - 199 mg/dL [facility] Comment:Diabetes: >=200 mg/d L plus symptoms Blood Urea Nitrogen 19(H) 8 - 18 mg/dL [facility] Creatinine 0.81 0.70 - 1.20 mg/dL [facility] Sodium 142 135 - 145 mmol/L [facility] Potassium 3.8 3.5 - 5.0 mmol/L [facility] Comment: Please note: ??Patients with WBC >100,000 may have falsely elevated Potassium levels. ??For accurate Potassium quantification in these patients send serum separator tube (gold top) for subsequent determinations. ??Contact the Clinical Chemistry Laboratory if there are any questions. Chloride 104 98 - 107 mmol/L [facility] Carbon Dioxide 26 22 - 31 mmol/L [facility] Anion Gap 12 5 - 15 mmol/L [facility] Calcium 10.2 8.5 - 10.5 mg/dL [facility] Protein, Total 7.4 6.1 - 8.0 g/dL [facility] Albumin 4.1 3.2 - 5.2 g/dL [facility] Aspartate Aminotransferase 24 0 - 30 unit/L [facility] Alanine Aminotransferase 12 0 - 30 unit/L [facility] Alkaline Phosphatase 93 35 - 105 unit/L [facility] Bilirubin, Total 0.3 0.2 - 1.3 mg/dL [facility] Est Glomerular Filtration Rate 80 >=60 mL/min/1. 73 m?? [facility] Comment: This patient's estimated [...] Lab Alirio Esparza MD CHEMISTRY ORDERABLE S [facility] [place] [address] * DXA Central Spine, Hip, and/or Whole Body (Generic) (06/05/2021 11:58 AM EDT) PT CLASS O RAD ADMITDTTM RAD PT RAD INFO [id number]^E VERETT^DEBORAH ^E RAD EXAM DESC XDXAC^DEXA SCAN [...] questions please contact the health child care specialist that requested your imaging first. ? Electronically signed by: Rocael Villatoro MD, [facility] ([phone]), at 06/05/2021 12:00 PM Narrative 06/05/2021 12:00 [...] have questions please contactthe health child care specialist that requested your imaging first. Electronically signed by: Rocael Villatoro MD, [facility]([phone]), at 06/05/2021 12:00 PM Deborah Quiroga BRAZING MACHINE OPERATOR IMG DEXA ORDERABLES * Mammo Screening Cad Bilateral (06/05/2021 11:42 AM EDT) PT CLASS O RAD ADMITDTTM RAD PT RAD INFO [id number]^EV ERETT^DEBORAH^E RAD EXAM DESC MADDSC^SCREEN MAMMO BL [...] questions please contact the health child care specialist that requested your imaging first. ? Electronically signed by: Rocael Villatoro MD, [facility] ([phone]), at 06/05/2021 1:27 PM Narrative 06/05/2021 1:27 [...] have questions please contactthe health child care specialist that requested your imaging first. Electronically signed by: Rocael Villatoro MD, [facility]([phone]), at 06/05/2021 1:27 PM Deborah Quiroga APRN [...] capacity to make decision: Yes Care Teams Bin Packer Relationship Specialty Start Date End Date Magdalena Acosta MD [address] [place] [address] PCP - General Family Medicine 02/05/23
--- OUTSIDE RECORDS SUMMARY | 2024-05-02 15:09 | XMS_ITS | Encounter Summary ---
Author Organization [facility] [place] [address] Care Team Providers Care Production Officer Name Role Phone Magdalena Acosta MD Primary Care Provider [phone] Reason for Visit * Reason Comments Aortic Stenosis Coronary Artery Disease Hypertension Encounter Details Date Type Department Care Team (Latest Contact Info) Description 11/16/2023 11:40 AM EDT TH Visit (TeleHealth) Cardiology at [address] [address] Jay Maza [place] [address] Aortic valve stenosis, etiology of cardiac valve disease unspecified; Coronary artery disease, unspecified vessel or lesion type, unspecified whether angina present, unspecified whether mashpee or transplanted heart Social History Tobacco Use Types Packs/Day Years Used Date Smoking Tobacco: Never Smokeless Tobacco: Never Alcohol Use Standard Drinks/Week Comments No 0 (1 standard drink = 0.6 oz pur e alcohol) none [facility] Inpatient Questions Answer Date Recorded Does Anyone [...] from the original note were not included. [facility] [place] [facility] Interventional Cardiology CARDIOLOGY TELE VISIT NOTE 11/16/23 Patient: Purnima Thacker Prior to the initiation of our discussion, the risks and benefits of tele health visits were discussed, and the patient consented verbally to this being a virtual telehealth visit in lieu of an in person office visit. CARDIOLOGISTS: Antelmo Sharma MD ([facility] [place] Cards) Maria Luz Mejia MD ([facility] [place] [place] Cards - [facility]) Problem List: Aortic valve stenosis: prior [...] fraction I35.0 Mild coronary artery disease by [facility] 11/09/2022 I25.10 Heart failure with reduced [...] notable for coronary artery protection given low jpbcx-oy-rjcfltwk distance. There was no obstruction post Valve [...] had a very reassuring recent echo in [facility], in scanned docs. LVEF 55%. Valve [...] leads Confirmed by MD Harshil, Haris Bell ([id number]) on 05/10/2023 8:11:46 AM Cardiac Cath 11/09/2022 [...] in one year. EKATERINA Thompson Time spent: 7895WDY4 0-5min 3981GOB6 6-10min 6471UCF6 11-15min x 0903JMK2 16-20min 5092NMZ3 21-30min 3866BLI8 31-40min 9382DRD6 40+ min Jay Maza PA-C Interventional Cardiology [facility] [place] [place] Pager [phone] documented in this encounter Plan of Treatment Upcoming Encounters Date Type Department Care Team (Late st Contact Info) Description 05/12/2024 9:00 AM EDT Laboratory Appointment Lab at [facility] [place] Hematology Oncology [address] [place] [address] 05/12/2024 10:00 AM EDT Office Visit [place]ematology [place] [address] Markel Borjas MD [facility] [address] [place] [address] 03/01/2025 4:15 PM EDT Office Visit Dermatology at [place] [address] [place] [address] Marek Bonilla MD [address] [place] [address] documented as of this encounter Visit Diagnoses Diagnosis Aortic valve stenosis, etiology of cardiac valve disease unspecified Coronary artery disease, unspecified vessel or lesion type, unspecified whether angina present, unspecified whether mashpee or transplanted heart documented in this encounter Care Teams Production Officer Relationship Specialty Start Date End Date Magdalena Acosta MD [address] [place] [address] PCP - General Family Medicine 02/05/23 documented as of this encounter
--- OUTSIDE RECORDS SUMMARY | 2024-05-02 15:09 | XMS_ITS | Encounter Summary ---
Author Organization [facility] Address [address] [place] [address] Care Team Providers Care Clearing House Clerk Name Role Phone Scott Ashley WILLIAM Primary Care Provider Encounter Details Date Type Department Care Team (Late st Contact Info) Description 11/10/2013 Results Only [facility] [phone] Jeni Laird, PERSONAL INJURY LAW SPECIALIST [address] [place], [place] [phone] Social History Tobacco Use Types Packs/Day Years [...] ? 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 Accession #: ? [id number] : ? 1955 (Age: 58) ??F ?Collect Date: ? 11/10/2013 Location: ? [facility] ? Receive Date: ? 11/14/2013 Provider: ?JENI LAIRD PERSONAL INJURY LAW SPECIALIST Copy to: ? Specimen/Source: ?Pap Test, [...] Report PAUL ARELLANO 11/10/2013 11/14/2013 Jeni Laird PERSONAL INJURY LAW SPECIALIST PATHOLOGY ORDERAB LES Performing Organization Address City/State/[facility] Co de Phone Number PAUL ARELLANO [address] [place] [address] documented in this encounter Visit Diagnoses Not on filedocumented in this encounter Care Teams Clearing House Clerk Relationship Specialty Start Date End Date Ashley Chavez ARNP [address] [place] [address] PCP - General 07/11/10 documented as of this encounter
--- OUTSIDE RECORDS SUMMARY | 2024-05-02 15:09 | XMS_ITS | Encounter Summary ---
Author Organization [place] [address] Care Team Providers Care Sausage Mixer Name Role Phone Magdalena Acosta MD Primary Care Provider Encounter Details Date Type Department Care Team (Late st Contact Info) Description 05/27/2023 Refill Cardiology at [address] [phone] Vero Marrero, RN Social History Tobacco Use [...] PM EDT TC to Nurse Sosa at [facility] to relay response from Jay [...] after that 75mg once daily. Jay Marrero supervisor paint roller covers [facility] [phone] * Telephone Encounter - Vero Marrero RN - 05/27/2023 1:46 PM EDT VM received from triage nurse Sosa at [facility] stating patient was seen today [...] more affordable option, if possible. Vero Marrero supervisor paint roller covers [facility] [address] documented in this encounter Plan of Treatment Upcoming Encounters Date Type Department Care Team (Late st Contact Info) Description 05/12/2024 9:00 AM EDT Laboratory Appointment Lab at [facility] Hematology Oncology [address] [place] [phone] 05/12/2024 10:00 AM EDT Office Visit [place]ology [place] [address] Markel Borjas MD [facility] [address] [place] [address] 03/01/2025 4:15 PM EDT Office Visit Dermatology at [address] [address] Marek Bonilla MD [address], [place] [address] documented as of this encounter Visit Diagnoses Diagnosis Aortic valve stenosis, etiology of cardiac valve disease unspecified documented in this encounter Care Teams Sausage Mixer Relationship Specialty Start Date End Date Magdalena Acosta MD [address] [place] [address] PCP - General Family Medicine 02/05/23 documented as of this encounter
--- OUTSIDE RECORDS SUMMARY | 2024-05-02 15:09 | XMS_ITS | Encounter Summary ---
Author Organization [facility] Address [address] [place] [address] Care Team Providers Care Ocularist Name Role Phone Scott Ashley WILLIAM Primary Care Provider [phone] Encounter Details Date Type Department Care Team (Late st Contact Info) Description 05/12/2019 Results Only [facility] [phone] Nadira Gregorio MD [address] [place] [phone] Social History Tobacco Use Types Packs/Day [...] ? 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 Accession #: ? [id number] ? : ? 1955 (Age: 63) ??F ? Collect Date: ? 05/12/2019 ? Location: ? [facility] ? Receive Date: ? 05/12/2019 ? Provider: NADIRA GREGORIO MD Copy to: WINTER HANKINS DISTRIBUTING CLERK ? Final Pathologic Diagnosis: COLON, CECUM, POLYP, [...] (ASCP) 05/12/2019 6:08 PM End of Report [facility] 05/12/2019 16:0 3 EDT 05/12/2019 16:03 EDT Nadira Gregorio MD PATHOLOGY ORDERABLES [facility] [address] [place] [address] documented in this encounter Visit Diagnoses Not on filedocumented in this encounter Care Teams Ocularist Relationship Specialty Start Date End Date Ashley Chavez ARNP [address] [place] [address] PCP - General 07/11/10 documented as of this encounter
--- OUTSIDE RECORDS SUMMARY | 2024-05-02 15:09 | XMS_ITS | Encounter Summary ---
Author Organization [facility] Address [facility] [place] [address] Care Team Providers Care Sales Service Coordinator Name Role Phone Magdalena Acosta MD Primary Care Provider [phone] Encounter Details Date Type Department Care Team (Late st Contact Info) Description 07/29/2023 11:00 AM EST Office [place] [address] Magdalena Peralta MD [facility] [place] [address] Mixed connective tissue disease Social History Tobacco [...] 1:5120 speckled; VIC negative; Myositis panel with WATER RESOURCE ENGINEERING SPECIALIST ab 149.1 (positive); Anti U1RNP IgG [...] Viramontes. Magdalena Peralta MD Rheumatology Fellow Pager: [phone] * Kia Viramontes DO - 07/29/2023 11:00 AM EST ATTENDING ADDENDUM The patient's history was reviewed, and I interviewed and examined the patient with Dr. Peralta I agree with her summary, findings, and plan. documented in this encounter Plan of Treatment Upcoming Encounters Date Type Department Care Team (Late st Contact Info) Description 05/12/2024 9:00 AM EDT Laboratory Appointment Lab at [facility] [place] On[place] [address] [place] [address] 05/12/2024 10:00 AM EDT Office Visit Hematology [place] [address] Markel Borjas MD [facility] [address] [place] [address] 03/01/2025 4:15 PM EDT Office Visit Dermatology at [place] [address] [facility] [place] [address] Marek Bonilla MD [address] [facility] [place] [address] documented as of this encounter Results * [...] PFT FEV1/FVC Pre-BD Z-Score 0 COMPAS PFT KOV90-71 Actual Pre-BD 2.41 % COMPAS PFT KGE64-80 Predicted 1.8 % COMPAS PFT FOW25-92 Pre-BD % of Predicted 134 % COMPAS PFT GTB36-98 Pre-BD Z-Score 0.81 COMPAS PFT DLCO Hb [...] in this encounter Care Teams Sales Service Coordinator Relationship Specialty Start Date End Date Magdalena Acosta MD [address] [place] [address] PCP - General Family Medicine 02/05/23 documented as of this encounter
--- OUTSIDE RECORDS SUMMARY | 2024-05-02 15:09 | XMS_ITS | Encounter Summary ---
Author Organization [facility] [place] [address] Care Team Providers Care Roofer Helper Vinyl Coating Name Role Phone Magdalena Acosta MD Primary Care Provider [phone] Encounter Details Date Type Department Care Team [...] 9:00 AM EDT Laboratory Appointment Lab at [facility] Hematology Oncology [address] [place] [address] 05/12/2024 10:00 AM EDT Office Visit [place]ematology [place] [address] Markel Borjas MD [facility] [address] [place] [address] 03/01/2025 4:15 PM EDT Office Visit Dermatology at [place] [address] [place] [phone] Marek Bonilla MD [address], [place] [address] documented as of this encounter Visit Diagnoses Not on filedocumented in this encounter Care Teams Roofer Helper Vinyl Coating Relationship Specialty Start Date End Date Magdalena Acosta MD [address] [place] [address] PCP - General Family Medicine 02/05/23 documented as of this encounter
--- OUTSIDE RECORDS SUMMARY | 2024-05-02 15:09 | XMS_ITS | Encounter Summary ---
Author Organization [facility] Address [address] [place] [address] Care Team Providers Care Anthropologist Name Role Phone Scott, Ashley WILLIAM Primary Care Provider [phone] Encounter Details Date Type Department Care Team (Late st Contact Info) Description 12/23/2016 Results Only [facility] [phone] Deborah Quiroga, MACHINE STAKER [address] [place] [phone] Social History Tobacco Use Types Packs/Day Years [...] ? 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 Accession #: ? [id number] ? : ? 1955 (Age: 61) ??F ?Collect Date: ? 12/23/2016 ? Location: ? [facility] ? Receive Date: ? 12/25/2016 ? Provider: DEBORAH QUIROGA SHIPPING SUPERVISOR Copy to: ? Final Report SPECIMEN ADEQUACY ? Satisfactory for Evaluation - transformation zone component present GENERAL CATEGORIZATION ? Negative for Intraepithelial Lesion or Malignancy ?? Last Menstrual Period: years Specimen/Source: ??Pap Test, Cervix, ThinPrep Imaging System with manual evaluation Document reviewed and electronically signed by: ? Monica Cason [facility](ASCP) ? Report ??Date: 01/06/2017 09:11 HPV with Pap Test ? Date Ordered: ? 01/06/2017 ? Status: ?? Signed Out ?Date Complete: ? 01/07/2017 ? By: ??System Interface ? Date Reported: ? 01/07/2017 ? Interpretation RESULT: Negative for HPV. No E6 or E7 mRNA is detected from HPV types 16,18,31,33,35, 39,45,51,52,56,58, 59,66, and 68 by building service worker mediated amplification. Comments Document reviewed and electronically signed by: ? System Interface ? Report date: 01/07/2017 By the signature above, the attending physician certifies that he/she has personally conducted a gross and/or microscopic examination of the described specimens and rendered or confirmed the above diagnosis. End of Report [facility] 12/23/2016 12/25/2016 Deborah Quiroga MACHINE STAKER PATHOLOGY ORDERABLES [facility] [address] [place] [address] documented in this encounter Visit Diagnoses Not on filedocumented in this encounter Care Teams Anthropologist Relationship Specialty Start Date End Date Ashley Chavez ARNP [address] [place] [address] PCP - General 07/11/10 documented as of this encounter
--- OUTSIDE RECORDS SUMMARY | 2024-05-02 15:09 | XMS_ITS | Encounter Summary ---
Author Organization [facility] [address] Care Team Providers Care Blueprinting Machine Operator Name Role Phone Magdalena Acosta MD Primary Care Provider [phone] Reason for Visit * Reason Comments Coronary Artery Disease Hypertension Aortic Stenosis Encounter Details Date Type Department Care Team (Latest Contact Info) Description 07/20/2023 4:40 PM EST TH Visit (TeleHealth) Cardiology at [address] [address] Jay Maza PA [facility] [address] HFrEF (heart failure with reduced ejection fraction); [...] Maza PA - 07/20/2023 4:40 PM EST [facility] Interventional Cardiology CARDIOLOGY [...] lieu of an in person office visit. Job Coach: Antelmo Sharma MD ([facility] Cards) Maria Luz Mejia MD ([facility] / [facility] cards) Problem List: : [...] fraction I35.0 Mild coronary artery disease by [facility] 11/09/2022 I25.10 Heart failure with [...] notable for coronary artery protection given low ragbi-vl-mhgrzlsh distance. There was no obstruction post Valve deployment, but the stent could not be removed safely, so it was deployed. 4.0 mm x 30mm in left main. She was loaded on brilinta aka ticagrelor. Immediately post valve deployment, chest compressions to circulate central epinephrine which was administered given her hypotension, low LVEF, and low cardiac reserve. Next, the patient was transferred to [facility] for pressor and inotropic support. [...] arms and wrists. Successful right transfemoral TAVR Tgwtq-uc-Lviqx with a 23 mm Lai 3 THV. [...] leads Confirmed by MD Harshil, Haris Bell ([id number]) on 05/10/2023 8:11:46 AM Cardiac Cath 11/09/2022 [...] in chart review and direct patient contact. 5595VQD6 0-5min 6616XWJ8 6-10min 4285DQB1 11-15min 0519AQQ6 16-20min x 3164NRV8 21-30min 2683QWA6 31-40min 5265EUC0 40+ min Jay Maza PA-C Interventional Cardiology [facility] Pager [phone] documented in this encounter Plan of Treatment Upcoming Encounters Date Type Department Care Team (Late st Contact Info) Description 05/12/2024 9:00 AM EDT Laboratory Appointment Lab at [facility] Hematology Oncology [address] [place] [address] 05/12/2024 10:00 AM EDT Office Visit H[place]ology [place] [address] Markel Borjas MD [facility] [address] [place] [address] 03/01/2025 4:15 PM EDT Office Visit Dermatology at [place] [address] [place] [address] Marek Bonilla MD [address] [place] [address] documented as of this encounter Visit Diagnoses Diagnosis HFrEF (heart failure with reduced ejection fraction) Hypertension, unspecified type Aortic valve stenosis, etiology of cardiac valve disease unspecified documented in this encounter Care Teams Blueprinting Machine Operator Relationship Specialty Start Date End Date Magdalena Acosta MD [address] [place] [address] PCP - General Family Medicine 02/05/23 documented as of this encounter
--- OUTSIDE RECORDS SUMMARY | 2024-05-02 15:09 | XMS_ITS | Encounter Summary ---
Author Organization [facility] Address [address] [place] [address] Care Team Providers Care Storyboard Artist Name Role Phone Unavailable Primary Care Provider Unavailabl e Encounter Details Date Type Department Care Team (Late st Contact Info) Description 04/20/2005 Results Only [facility] [place] [address] [place] [address] Ziggy Valiente MD [address] [place] [phone] Social History Tobacco Use Types Packs/Day Years [...] ? 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 Accession #: ? [id number] ? : ? 1955 (Age: 49) ??F [...] entirely submitted in one cassette. ??(Arabella Santos)/[facility] End of Report PAUL ARELLANO 04/20/2005 04/21/2005 15: 04 EDT Ziggy Valiente MD PATHOLOGY ORDERABLES [facility] ARELL[facility] [address] [place] [address] documented in this encounter Visit Diagnoses Not on filedocumented in this encounter
[2024-05-02 15:10] VITALS: BP 122/65; PULSE 66
--- OUTSIDE RECORDS SUMMARY | 2024-05-02 15:10 | XMS_ITS | Encounter Summary ---
Author Organization [facility] [place] [address] Care Team Providers Care Back Facer Name Role Phone Magdalena Acosta MD Primary Care Provider [phone] Encounter Details Date Type Department Care Team [...] 9:00 AM EDT Laboratory Appointment Lab at [facility] Hematology Oncology [address] [place] [address] 05/12/2024 10:00 AM EDT Office Visit Hematology [place] [address] Markel Borjas MD [facility] [place] [address] 03/01/2025 4:15 PM EDT Office Visit Dermatology at [place] [address] [place] [phone] Marek Bonilla MD [address] [place] [address] documented as of this encounter Visit Diagnoses Not on filedocumented in this encounter Care Teams Back Facer Relationship Specialty Start Date End Date Magdalena Acosta MD [address] [place] [address] PCP - General Family Medicine 02/05/23 documented as of this encounter
--- OUTSIDE RECORDS SUMMARY | 2024-05-02 15:10 | XMS_ITS | Encounter Summary ---
Author Organization [facility] [place] [address] Care Team Providers Care Bacteriology Professor Name Role Phone Magdalena Acosta MD Primary Care Provider [phone] Reason for Referral * Diagnostic Test (Routine) - Closed Specialty Diagnoses / Procedures Referred By Contac t Referred To Contact Cardiology Diagnoses S/P TAVR (transcatheter aortic valve replacement) Procedures Echocardiogram Transthoracic Vinod Juárez PA [facility] [place] [address] [facility] [place] [address] Referral ID Status Reason Start Date Expiration Date V isits Requested Visits Authorized [id number] Closed Specialty Service Requested 05/22/2023 05/21/2024 1 1 * Home Health Care (Routine) - Closed Specialty Diagnoses / Procedures Referred By Contac t Referred To Contact Diagnoses S/P TAVR (transcatheter aortic valve replacement) Alirio Hudson MD [facility] CARDIOTHORACIC SURGERY [address] [facility] & [address] [place] [address] Referral ID Status Reason Start Date Expiration Date V isits Requested Visits Authorized [id number] Closed Consult, Test & Treat 05/22/2023 11/18/2023 999 999 * Consultation (Routine) - Closed Specialty Diagnoses / Procedures Referred By Crispin maxwell Referred To Contact Cardiology Diagnoses S/P TAVR (transcatheter aortic valve replacement) Alirio Hudson MD [facility] CARDIOTHORACIC [place] [address] Cardiac Rehab, [address] [place] [address] Referral ID Status Reason Start Date Expiration Date V isits Requested Visits Authorized [id number] Closed Consult, Test & Treat 05/22/2023 11/18/2023 36 36 * Diagnostic Test (Routine) - Closed Specialty Diagnoses / Procedures Referred By Crispin maxwell Referred To Contact Cardiology Diagnoses Aortic valve stenosis, etiology of cardiac valve disease unspecified Procedures Echocardiogram Transthoracic Transesophageal Echocardiogram (YUSRA) Radha Hollins MD [facility] [place] [address] [facility] [place] [address] Referral ID Status Reason Start Date Expiration Date V isits Requested Visits Authorized [id number] Closed Specialty Service Requested 05/11/2023 05/10/2024 1 1 Reason for Visit * Auth/Cert (Routine) Specialty Diagnoses / Procedures Referred By Crispin maxwell Referred To Contact Diagnoses Symptomatic severe aortic stenosis with low ejection fraction NSTEMI, CHF Enrique Chua MD [facility] [place] [address] [facility] Referral ID Status Reason Start Date Expiration Date Visits Re quested Visits Authorized [id number] 1 1 Encounter Details Date Type Department Care Team (Latest Contact Info) Description 05/08/2023 9:14 AM EDT - 05/22/2023 10:46 AM EDT Hospital Encounter Heart and Vascular Unit Level 4 [place] [address] Enrique Chua MD [facility] [place] [address] Juan Luis Gonzalez MD [facility] [place] [address] Radha Hollins MD [facility] [place] [address] Alirio Hudson MD S/P TAVR (transcatheter aortic valve replacement) (Primary Dx); Aortic valve stenosis, etiology of cardiac valve disease unspecified; Symptomatic severe aortic stenosis with low ejection fraction; Heart failure with reduced ejection fraction due to heart valve disease; Mild coronary artery disease by [facility] 11/09/2022; Mixed connective tissue disease; Neck [...] Patient Age: 67 y.o. Birthdate: 1955 Language: Spanish Race: White Ethnicity: Not nor Admit Date: 05/08/2023 Discharge Date: 05/22/2023 Attending Physician: Alirio Hudson MD Follow-up Recommendations for Providers: Please continue routine management of cardiovascular risk factors including blood pressure, lipids,glucose, etc. Please note any medication changes. Patient to follow up with PCP, Magdalena Acosta MD, or Primary Healthcare Technician, Avis Mejia MD, in ~ 7-10 days. Patient to follow up with Powder Coat Painter, Dr. Antelmo Sharma, in 2 weeks with an EKG, Echo, CBC, and CMP. Patient to follow up with Nephrology, their office to arrange. Afzk-Zqwnpf-oe interval: After initial 30 day follow-up appointment , all TAVR patients will follow-up again in one year with an echo. Inpatient Provider Contact Information: 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 11/09/2022 Heart failure with reduced ejection [...] Tube Placement Right 05/18/2023 Laure Ricks PA [facility] INTERVENTIONL RAD PRG CATH PLMT LEFT HEART CATH & ARTS W/INJ & ANGIO IMG S&I N/A 11/09/2022 CORONARY ANGIOGRAPHY; W [facility],POSSIBLE PCI (WRVU 5.6) performed by Mario Alberto Escobedo MD at [facility] CATH LABS PRG COMBINED RIGHT & LEFT HEART CATH W/INJ L VENTRICULOGRAPHY, IMG S&I N/A 05/12/2023 COMBINED RIGHT & LEFT HEART CATH,INC INJ FOR L VENTRICULOGRAPHY (WRVU 5.99) performed by Antelmo Sharma MD at [facility] CATH LABS PRO AORTOPLAS FOR SUPRAVALV STEN N/A 09/21/2016 @AORTOPLASTY FOR SUPRAVALVULAR STENOSIS (WRVU 29.33) performed by Alirio Hudson MD at [facility] MAIN OR PRO REPLACE AORTIC VALVE (TAVR/FEDERICO)PERC FEMORAL ARTERY APPROACH 05/12/2023 @TRANSCATHETER AORTIC VALVE REPLACEMENT (TAVR), PERCUTANEOUS FEMORAL (WRVU 22.47) performed by Alirio Hudson MD at [facility] CATH LABS PRO REPLACEMENT PROSTHETIC AORTIC VALVE OPEN W CARDIOPULMONARY BYPASS HOMOGRF/STENT N/A 09/21/2016 @REPLACE AORTIC VALVE, OPEN, W\CPB, W\PROSTHETIC VALVE (WRVU 41.32) performed by Alirio Hudson MD at [facility] MAIN [...] Major Procedures/Operations: 05/12/23: Successful right transfemoral TAVR Sxkoq-zw-Zxjfe with a 23 mm Lai 3 THV. Left coronary protection with left main MINNA. Hospital Course: #Severe prosthetic s/p valve in valve TF TAVR #Low coronary heights s/p left main stent for coronary protection #Type 2 NSTEMI, present on arrival, resolved #Acute decompensated HFrEF #Cardiogenic shock #EVANS / Cardiorenal syndrome Purnima Thacker was admitted to [facility] on 05/08/2023 via the Cardiology Service [...] TAVR and she was brought to the lab head the following morning where Drs. Alirio Hudson [...] if you have questions. Please call your Powder Coat Painter's office if you have any discharge or drainage from your procedural sites. Your Powder Coat Painter, Dr. Antelmo Sharma and/or the Stretcher Operator may be reached at . Antibiotic prophylaxis: You will need to take antibiotics prior to many invasive tests and treatments, such as dental cleaning, which should be done every 6 months. Your primary care physician or your dentist can prescribe this medication. Please refer to the card with the [place] [employer] Guidelines for more information. You have been provided with a copy of this card. Please refer to the [place] [employer] Guidelines for more information. Good [...] friends, go to a movie, go to holiness, etc. Heavy activities: No hunting, skiing, jogging, [...] should resume a low fat, low cholesterol, [place] [employer] Diet Driving: No restrictions. Shower/Bath: You may shower daily. No baths, soaking, or swimming for the first week. Wound care: Wash the sites daily with soap and rinse well, pat dry. Assess for any signs of infection such as increased redness, pain, warmth or drainage. Please call your corporate tutor's office if you have any discharge or drainage from your procedural sites. If there is a lot of swelling, apply mamta wraps during the day and remove at bedtime. Elevate your legs when you are sitting. Home oxygen therapy: N/A Follow up appointments: Please schedule a follow-up appointment with your PCP, Magdalena Acosta MD, or Primary Healthcare Technician in ~ 7-10 days. You have a follow-up appointment with your Powder Coat Painter, Dr. Antelmo Sharma, in 2 weeks with an EKG, Echo, and labs prior to your appointment. You will need follow-up with Nephrology, their office will arrange. Lqkx-Ivqlrl-cf interval: After initial 30 day follow-up appointment , all TAVR patients will follow-up again in one year with an echo. Cardiac Rehabilitation: Purnima Thacker was seen today regarding participation in the outpatient Phase 2 Cardiac Rehabilitation at [facility]. The patient agrees to a referral to this program. The referral will be sent at discharge and the patient should be contacted by the Program within 1- 2 weeks from discharge. Future Appointments and Orders Future Appointments and Orders Future Appointments Provider Department Dept Phone 07/29/2023 11:00 AM Magdalena Peralta MD Rheumatology at [facility] Arrive at: [facility] [phone] 02/11/2024 2:00 PM Marek Bonilla MD Dermatology at [place] Arrive at: [facility] [address] [phone] Future Orders Complete By Expires Type and Screen Future Surgery, [facility] SAME DAY PROGRAM ONLY) [DWO7637 Custom] 05/11/2023 Process Instructions: This test is intended ONLY for patients with upcoming surgery for testing prior to the day of surgery obtained through the same day program (4V or SDP). For ALL OTHER PATIENTS, order a Type and Screen (SWP884) This order includes the physician order for an ABO Recheck if requested by the Blood Bank. Scheduling Instructions: Comments: Questions: Date of surgery: CBC (with Diff) [ETM012 Custom] 06/05/2023 12/05/2023 Process Instructions: INCLUDES: WBC, RBC, Hgb, Hct, Platelets, RBC Indices and Differential Scheduling Instructions: Comments: Questions: Comprehensive metabolic panel (non-fasting) [LAB17 Custom] 06/05/2023 08/20/2023 Process Instructions: INCLUDES: Calcium, T Protein, Albumin, AST, ALT, Alk Phos, T Bili, BUN, Creat, GFR, Glucose, Lytes. Scheduling Instructions: Comments: Questions: Echocardiogram Transthoracic [35621 CPT(R)] 06/05/2023 12/05/2023 Process Instructions: Scheduling Instructions: Questions: Where will study be performed?: [facility] Does the patient have Congenital Heart Disease?: Does patient require sedation?: GA rationale: EKG 12 Lead [38366 CPT(R)] 06/05/2023 12/05/2023 Process Instructions: Scheduling Instructions: Questions: Which location will this be performed?: [place] Is a rhythm strip needed?: No [facility] [employer] [EQ161 Custom] As directed Process Instructions: Scheduling Instructions: Questions: Device Needed: WALKER (E0143) Patient Height (cm): 154.9 cm (5' 0.98) Patient Weight: 75.4 kg (166 lb 3.2 oz) Diagnosis: Unsteady gait when walking Referral to Cardiac Rehab [CQL020 Custom] As directed Process Instructions: If no progress note charted, please enter Clinical details in comments. Scheduling Instructions: Questions: My question or request is: s/p TAVR. Cardiac rehab at [facility]. Referral to Home Health [REF34 Custom] As directed Process Instructions: If no progress note charted, please enter Clinical details in comments. Scheduling Instructions: Comments: DOCUMENTATION FOR VNA SERVICES PATIENT'S LOCATION: Purnima Thacker [address] [place] [phone] (home) Centrifugal Casting Machine Operator's Name: Self and brother Raymond In discussion with the attending physician, it is certified that this patient is under his/her careand that MD, or an RESIDENTIAL REAL ESTATE APPRAISER, NIPPLE THREADER, or PA who is working directly with him/her, had a flfk-cy-qwso encounter that meets the physician bwdk-cd-fmco encounter requirements with this patient on 05/22/2023. [...] for managing ADLs. HOME HEALTH CARE AGENCY: [facility]. [address] [place] [address] PHONE: [phone] FAX: [phone] Start of care: Ideally 24-48 hours after [...] Magdalena Acosta MD [address] / [facility] [address] All VNA agencies which cover the area of patient's residence have been reviewed, either verbally joao writing, and patient has chosen the home health care agency noted. Questions: Disciplines Requested: Physical Therapy Occupational Therapy Discharge References/Attachments None Arrangements for VNA/home care: As above. (delete if no VNA) Signed: EKATERINA NAVARRETE [facility] Section of Cardiac Surgery Date: 05/22/2023 CC: Magdalena Acosta MD McmillinMario Alberto MD [address] [place] [address] documented in this encounter Discharge Instructions * Patient Instructions* Vinod Juárez PA - 05/22/2023 9:32 AM EDT TAVR Discharge Instructions: Call your doctor if: You have a fever of greater than 101 degrees, shaking chills, if you develop redness or drainage from your procedure sites, or if you have questions. Please call your Powder Coat Painter's office if you have any discharge or drainage from your procedural sites. Your Powder Coat Painter, Dr. Antelmo Sharma and/or the Stretcher Operator may be reached at . Antibiotic prophylaxis: You will need to take antibiotics prior to many invasive tests and treatments, such as dental cleaning, which should be done every 6 months. Your primary care physician or your dentist can prescribe this medication. Please refer to the card with the [place] [employer] Guidelines for more information. You have been provided with a copy of this card. Please refer to the [place] [employer] Guidelines for more information. Good [...] friends, go to a movie, go to holiness, etc. Heavy activities: No hunting, skiing, jogging, [...] should resume a low fat, low cholesterol, [place] [employer] Diet Driving: No restrictions. Shower/Bath: You may shower daily. No baths, soaking, or swimming for the first week. Wound care: Wash the sites daily with soap and rinse well, pat dry. Assess for any signs of infection such as increased redness, pain, warmth or drainage. Please call your corporate tutor's office if you have any discharge or drainage from your procedural sites. If there is a lot of swelling, apply mamta wraps during the day and remove at bedtime. Elevate your legs when you are sitting. Home oxygen therapy: N/A Follow up appointments: Please schedule a follow-up appointment with your PCP, Magdalena Acosta MD, or Primary Healthcare Technician in ~ 7-10 days. You have a follow-up appointment with your Powder Coat Painter, Dr. Antelmo Sharma, in 2 weeks with an EKG, Echo, and labs prior to your appointment. You will need follow-up with Nephrology, their office will arrange. Rnlu-Jpcvhv-kf interval: After initial 30 day follow-up appointment , all TAVR patients will follow-up again in one year with an echo. Cardiac Rehabilitation: Purnima Thacker was seen today regarding participation in the outpatient Phase 2 Cardiac Rehabilitation at [facility]. The patient agrees to a referral to this program. The referral will be sent at discharge and the patient should be contacted by the Program within 1- 2 weeks from discharge. documented in this encounter Medications at Time of Discharge Medication Sig Dispensed Refills Start Date End Date atorvastatin (LIPITOR) 10 mg Tablet Take 10 [...] Tablet Take 1 tablet by mouth daily. furosemide (Lasix) 20 mg [...] ins ( tef) Haven Ba, PT Pager: [phone] Physical Therapy Inpatient Rehabilitation Department * Nico [...] 0600 and on the weekends please page [phone]. * Jory Paniagua - 05/20/2023 3:52 PM [...] vomiting Last Bowel Movement: 05/20/23 Jory Paniagua Pole Incisor Operator * Rashid Tong, OT - 05/20/2023 3:16 [...] Tube Placement Right 05/18/2023 Laure Ricks PA [facility] INTERVENTIONL RAD PRG CATH PLMT LEFT HEART CATH & ARTS W/INJ & ANGIO IMG S&I N/A 11/09/2022 CORONARY ANGIOGRAPHY; W [facility],POSSIBLE PCI (WRVU 5.6) performed by Mario Alberto Escobedo MD at [facility] CATH LABS PRG COMBINED RIGHT & LEFT HEART CATH W/INJ L VENTRICULOGRAPHY, IMG S&I N/A 05/12/2023 COMBINED RIGHT & LEFT HEART CATH,INC INJ FOR L VENTRICULOGRAPHY (WRVU 5.99) performed by Antelmo Sharam MD at [facility] CATH LABS PRO AORTOPLAS FOR SUPRAVALV STEN N/A 09/21/2016 @AORTOPLASTY FOR SUPRAVALVULAR STENOSIS (WRVU 29.33) performed by Alirio Hudson MD at [facility] MAIN OR PRO REPLACE AORTIC VALVE (TAVR/FEDERICO)PERC FEMORAL ARTERY APPROACH 05/12/2023 @TRANSCATHETER AORTIC VALVE REPLACEMENT (TAVR), PERCUTANEOUS FEMORAL (WRVU 22.47) performed by Alirio Hudson MD at [facility] CATH LABS PRO REPLACEMENT PROSTHETIC AORTIC VALVE OPEN W CARDIOPULMONARY BYPASS HOMOGRF/STENT N/A 09/21/2016 @REPLACE AORTIC VALVE, OPEN, W\CPB, W\PROSTHETIC VALVE (WRVU 41.32) performed by Alirio Hudson MD at [facility] MAIN OR Social History: Patient lives alone. Home Setup: Pt lives on one level with tub shower and three steps to enter. DME: none used SPECIAL MACHINE OPERATOR Baseline ADL/Mobility: Independent with ADLs and [...] awareness: WFL Vision & Perception: corrective lenses loft rigger Communication: WFL Range of motion, strength, coordination: [...] Discharge planning. Total Minutes, Occupational Therapy: 28 (6142-7152) OT Evaluation Code Rationale: Diagnosis & Pertinent Co-Morbidities affecting Plan of Care: see PMHx Occupational Profile & Client History: Brief Expanded Extensive x Assessment of Occupational Performance: 1-3 performance deficits 3-5 performance deficits x 5 + performance deficits Clinical Decision Making: Low Moderate High x Clinical decision making of moderate complexity using standardized patient assessment instrument and measurable assessment of functional outcome. Pager: [phone] TONG MIKE OT 05/20/2023 Occupational Therapy Rehabilitation [...] 0600 and on the weekends please page [phone]. * Rylie Rodriguez MD - 05/19/2023 3:59 [...] and plan. Cynthia Blackburn MD Nephrology Pager: [phone] * Diana Espino - 05/19/2023 1:49 PM EDT Document Image Technician Encounter Note Patient Name: Purnima Thacker : [id number] MR#: [id number] Admit Date: 05/08/2023 9:14 AM Hospital Day [...] as stated. Total Minutes, Physical Therapy: 38 ([id number]) Henrik Dale CANDY Navarrete Pager: [phone] Physical Therapy Inpatient Rehabilitation Department * Nico [...] 0600 and on the weekends please page [phone]. * Laure Ricks PA - 05/19/2023 7:56 [...] Ricks PA-C Interventional Radiology IR Team Pager [phone] * Consuelo Espinoza RN - 05/18/2023 4:13 PM EDT ANGIO NURSING DATABASE Name: Purnima Thacker Date of : 1955 AGE: 67 y.o. Address: [address] [place] [phone] (home) Mobile: No relevant phone numbers on [...] coronary artery disease by [facility] 11/09/2022 I25.10 Heart failure with reduced [...] and plan. Cynthia Blackburn MD Nephrology Pager: [phone] * Magdalena Puri, ANURAG - 05/18/2023 10:51 AM EDT Images from the original note were not included. [facility] [address] [place], [place] [phone] STRUCTURAL HEART DISEASE CONSULTATION NOTE PRIMARY CARE [...] stenosis. She is now status post TAVR Wvmcr-zs-Ndkix with a 23 mm Lai 3 THV 05/12/[address] Sharma. Preliminary findings: Successful right transfemoral TAVR Mlvws-gt-Dxiii with a 23 mm Lai 3 THV. [...] perforation. Interval Events: - 05/12 Transferred to [facility] post- TAVR for pressor/inotropic support [...] coronary artery disease by [facility] 11/09/2022 Heart failure with reduced ejection [...] mg 81 mg Oral Daily Mara Serrano SALES AND MARKETING VICE PRESIDENT 81 mg at 05/18/23 0826 ondansetron (pf) [...] stenosis. She is now status post TAVR Ivzzi-rz-Goigc with a 23 mm Lai 3 THV [...] Magdalena Puri APRN Structural Heart Team Pager [phone] Team Office Please see addendum by Dr. Sharma for final plan and recommendations Associated attestation - Antelmo Sharma MD - 05/19/2023 10:52 PM EDT I have reviewed Magdalena Puri APRN's above history and I agree with the details as written. The assessment and plan were formulated in discussion with me and I agree with them as documented. Antelmo Sharma MD Pager [phone] * Nico Palacios PA - 05/18/2023 8:13 [...] 0600 and on the weekends please page [phone]. * Loli Hernandez, PT - 05/17/2023 5:27 [...] plan as stated. Time IN / OUT: 8707-9145 Total Minutes, Physical Therapy: 54 Billing Code: te-sx2, te-f, gait LOLI HERNANDEZ PT Pager: [phone] Physical Therapy Inpatient Rehabilitation Department * Cynthia [...] Well controlled. Cynthia Blackburn MD Nephrology Pager: [phone] * Mara Serrano, SALES AND MARKETING VICE PRESIDENT - 05/17/2023 8:26 AM EDT Cardiac Surgery [...] 0600 and on the weekends please page [phone]. * Guerda Del Valle - 05/16/2023 10:44 AM EDT Nutrition Services Note - Low Nutrition Acuity Purnima Thacker is a 67 y.o. female Reason for intervention: hospital day 9 Nutrition Plan: Continue diet order Encourage good PO Lasix and Zofran noted Added special serve: open containers Monitor weight Patient scheduled for a hospital day 9 nutrition evaluation. Janitorial Account Manager met with pt at bedside. Pt reports that her appetite and PO has much improved since admission. Denies nausea/vomiting or trouble chewing/swallowing. Janitorial Account Manager provided snack list but pt not interested in adding snacks at this time. Her only concern was that she is worried that she will eat too much which will cause too much pressure in her stomach. Janitorial Account Manager assured pt and suggested eating smaller [...] Last Bowel Movement: 05/10/23 Guerda Del Valle Pole Incisor Operator * Vinod Juárez PA - 05/16/2023 [...] 0600 and on the weekends please page [phone]. * Michael Jeffers MD - 05/16/2023 8:11 AM EDT Images from the original note were not included. Hypertension-Nephrology Inpatient Follow-up Purnima Thacker [id number] 1955 ID: 67 y.o. old female seen [...] intact. metoproloL tartrate 12.5 mg Oral Q8H BRYNAT lidocaine 1 patch Transdermal Q24H ticagrelor 90 [...] IRONSAT 12 (L) 05/16/2023 SFOLATE >20.0 07/03/2022 [id number] 07/03/2022 Lab Results Component Value Date [...] Dr. Ayoub. Please contact me at phone: [phone] or pager: [phone] with any questions. Michael Jeffers MD Nephrology [...] 0600 and on the weekends please page [phone]. * Hortencia Cody MD - 05/15/2023 2:07 [...] not included. Hypertension-Nephrology Inpatient Follow-up Purnima Thacker [id number] 1955 ID: 67 y.o. old female seen [...] HGB 7.8 (L) 05/13/2023 SFOLATE >20.0 07/03/2022 [id number] 07/03/2022 Lab Results Component Value Date [...] Dr. Ayoub. Please contact me at phone: [phone] or pager: [phone] with any questions. Michael Jeffers MD Nephrology [...] HTN, DLP, NICOLSA, mixed connective tissues disease, now s/p valve [...] outlined inthis evaluation. HAVEN BA, PT Pager: [phone] Physical Therapy Inpatient Rehabilitation Department Time IN / OUT: 3623-7074 Total time: Total Minutes, Physical Therapy: 30 [...] 0600 and on the weekends please page [phone]. * Antelmo Sharma MD - 05/14/2023 7:56 AM EDT Images from the original note were not included. [place] [phone] STRUCTURAL HEART DISEASE CONSULTATION NOTE PRIMARY CARE [...] stenosis. She is now status post TAVR Wrtqd-ha-Rpnvo with a 23 mm Lai 3 THV 05/12/[address] Sharma. Preliminary findings: Successful right transfemoral TAVR Hjqxj-at-Eesiq with a 23 mm Lai 3 THV. [...] coronary artery disease by [facility] 11/09/2022 Heart failure with reduced ejection [...] stenosis. She is now status post TAVR Acvng-hq-Yohjw with a 23 mm Lai 3 THV 05/12/[address] Sharma. Janet TAVR case notable for coronary LAD protective MINNA. Status post TAVR, the patient was transferred to [facility] for pressor and inotropic support. Pressors weaned overnight 05/12. Cardiac indices by thermodilution remained >3 with continued Milrinone 0.125 mcg/kg/min prior to PAC removal. EKG todayNSR with stable LA/QRS intervals. Hemoglobin slowly down-trending (8.2-> 7.8-> 7.2). [...] Dale ANURAG Kaplan Structural Heart Team Pager [phone] Team Office Please see addendum by Dr. [...] exposure. Nephrology consultationtoday. Antelmo Sharma MD Pager [phone] * Antelmo Cardenas RN - 05/14/2023 5:18 AM EDT Pt AOx4, complaining of mild/moderate generalized pain (states her Meloxicam is effective at home) currently refusing prn oxycodone. NAEON, hemodynamically stable on Milrinone, Maps >65, ST in obm593's down to NSR with frequent multifocal PVC's. [...] not included. [place] [address] STRUCTURAL HEART DISEASE PROGRESS NOTE PRIMARY CARE [...] stenosis. She is now status post TAVR Eakum-vp-Wfbwt with a 23 mm Lai 3 THV 05/12/[address] Sharma. Preliminary findings: Successful right transfemoral TAVR Spdha-ef-Sxbbd with a 23 mm Lai 3 THV. [...] or perforation. Interval Events: - Transferred to [facility] post- TAVR for pressor/inotropic support [...] coronary artery disease by [facility] 11/09/2022 Heart failure with reduced ejection [...] stenosis. She is now status post TAVR Eghje-mc-Xydco with a 23 mm Lai 3 THV 05/12/[address] Sharma. Janet TAVR case notable for coronary LAD protective MINNA. Status post TAVR, the patient was transferred to [facility] for pressor and inotropic support. Pressors weaned overnight. Cardiac indices by thermodilution remain greater than 3 with continued Milrinone 0.125 mcg/kg/min. EKG today NSR with stable LA/QRS intervals. Hemoglobin 7.8 today from 8.5, likely [...] Brody Kaplan APRN Structural Heart Team Pager [phone] Team Office Please see addendum by Dr. [...] DAPT moving forward. Antelmo Sharma MD Pager [phone] * Bonita Miguel PA - 05/13/2023 8:30 AM EDT Cardiac Surgery Progress Note Purnima Thacker is a 67 y.o. 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 PMH of s/p tissue AVR (2017), mixed connective tissue disease HTN, HLD, NICOLAS, diverticulosis, rosacea, essential tremor, and depression. 24h Events: From lab head for above procedure Extubated at ~1600 to [...] 0600 and on the weekends please page [phone]. * Onelia Schwartz MD - 05/12/2023 1:44 [...] coronary artery disease by [facility] 11/09/2022 Heart failure with reduced ejection [...] FiO2 weaned to 40%. 1105: ABG 7.34/42/73/22 0988-9309: SBT performed and passed on these settings [...] PCP: Magdalena Acosta MD PCP phone number: [phone] Date of Admission: 05/08/2023 ( Hospital Day [...] 1447 PHART -- 7.34* 7.34* -- -- PTL9DYW -- 30* 30* -- -- PO2ART -- 72* 81* -- -- WYA9NYB -- 16.0* 15.7* -- -- LACTATEVEN 2.4* 2.7* 2.7* 4.8* 2.9* VBG (Venous Blood Gas) Recent Labs 05/12/23 0700 05/12/23 0318 05/12/2310505/11/23193905/11/23 1447 LACTATEVEN 2.4* 2.7* 2.7* 4.8* 2.9* Mixed Venous Sat Recent Labs 05/12/23 0508 05/12/23 0321 05/12/23 0114 05/12/23 0030 J5INYW0 30.7 32.7 37.3 25.1 Objective: Vitals Last [...] questions please contact the health critical care registered nurse that requested your imaging first. Electronically signed by: ALIX RUVALCABA MD, [facility] ([phone]), at 05/10/2023 1:[address] Cardiac for [...] questions please contact the health critical care registered nurse that requested your imaging first. Electronically signed by: uCllen Narayanan MD, [facility] ([phone]), at 05/11/2023 4:[address] Angiogram Abdomen [...] questions please contact the health critical care registered nurse that requested your imaging first. Electronically signed by: Eileen Gomes MD, [facility] ([phone]), at 05/11/2023 2:42 PM XR Chest One [...] questions please contact the health critical care registered nurse that requested your imaging first. Electronically signed by: Will Rowe MD, [facility] ([phone]), at 05/11/2023 11:57 PM XR Chest One [...] questions please contact the health critical care registered nurse that requested your imaging first. Electronically signed by: Will Rowe MD, [facility] ([phone]), at 05/12/2023 3:16 AM Assessment & Plan: [...] and inotrope. She is planned for a eqywh-xi-vcolb TAVR this morning, which should hopefully improve [...] MD, FACP, FACC Section of Cardiovascular Medicine [facility] Transfer Coordinatorinternal controls analyst [facility] * [...] coronary artery disease by [facility] 11/09/2022 Heart failure with reduced ejection [...] 05/11/2023 4:11 PM EDT Reported off to FACTORY MANAGER and pt transferred over in the bed for higher level of care. * Antelmo Sharma MD - 05/11/2023 9:45 AM EDT Images from the original note were not [place] [id number] STRUCTURAL HEART DISEASE CONSULTATION NOTE PRIMARY CARE [...] who had been referred for possible TAVR nfzdt-ya-zejum evaluation. Her primary symptoms are of dyspnea [...] [facility]. 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 She states that, [...] coronary artery disease by [facility] 11/09/2022 Heart failure with reduced ejection [...] send to lab ([facility] Result Value Ref Range Lactate WB 3.1 (H) 0.5 - 2.2 mmol/L Heparin (unfractionated) Level Result Value Ref Range Heparin UFH Level 0.46 IU/mL Lactate, whole blood, send to lab ([facility]) Result Value Ref Range Lactate WB 1.8 [...] leads Confirmed by MD Harshil, Enrique Bell ([id number]) on 05/10/2023 8:11:46 AM Cardiac Cath 11/09/2022 [...] to decompensating HFrEF, she was transferred to [facility] this afternoon for further management. TAVR CT imaging support for adequate ileofemoral access. Given her acute deterioration today, will planfor RTF TAVR on 05/12/2023. Brody Kaplan ANURAG Structural Heart Disease Pager [phone] Please see addendum by Dr. Sharma for [...] signed and dated. Antelmo Sharma MD Pager [phone] * Harini Lance MD - 05/11/2023 6:06 AM EDT Images from the original note were not included. Cardiology Progress Note Patient info: Name: Purnima Thacker : 1955 PCP: Magdalena Acosta MD PCP phone number: [phone] Date of Admission: 05/08/2023 ( Hospital Day [...] questions please contact the health critical care registered nurse that requested your imaging first. Electronically signed by: ALIX RUVALCABA MD, [facility] ([phone]), at 05/10/2023 1:25 PM TTE: 05/08 -Left [...] coronary artery disease by [facility] 11/09/2022 Hyperlipidemia, unspecified NICOLAS (obstructive sleep [...] PCP: Magdalena Acosta MD PCP phone number: [phone] Date of Admission: 05/08/2023 ( Hospital Day [...] coronary artery disease by [facility] 11/09/2022 Hyperlipidemia, unspecified NICOLAS (obstructive sleep [...] PCP: Magdalena Aocsta MD PCP phone number: [phone] Date of Admission: 05/08/2023 ( Hospital Day [...] Gas) No results found for: PHART, PO2ART, XGP4IJQ, ZEH3EIQ Microbiology: Microbiology Results (Last 30 days) No [...] coronary artery disease by [facility] 11/09/2022 Hyperlipidemia, unspecified NICOLAS (obstructive sleep [...] coronary artery disease by [facility] 11/09/2022 I25.10 Heart failure with reduced ejection fraction due to heart valve disease I50.20, I38 Cardiogenic shock R57.0 S/P TAVR (transcatheter aortic valve replacement) Z95.2 Past Medical History: Diagnosis Date Anemia Past Surgical History: Procedure Laterality Date PRG CATH PLMT LEFT HEART CATH & ARTS W/INJ & ANGIO IMG S&I N/A 11/09/2022 CORONARY ANGIOGRAPHY; W [facility],POSSIBLE PCI (WRVU 5.6) performed by Mario Alberto Escobedo MD at [facility] CATH LABS PRO AORTOPLAS FOR SUPRAVALV STEN N/A 09/21/2016 @AORTOPLASTY FOR SUPRAVALVULAR STENOSIS (WRVU 29.33) performed by Alirio Hudson MD at [facility] MAIN OR PRO REPLACEMENT PROSTHETIC AORTIC VALVE OPEN W CARDIOPULMONARY BYPASS HOMOGRF/STENT N/A 09/21/2016 @REPLACE AORTIC VALVE, OPEN, W\CPB, W\PROSTHETIC VALVE (WRVU 41.32) performed by Alirio Hudson MD at [facility] MAIN OR Social History and [...] Verio test strips Strip USE DAILY OneTouch DelDoculogy Plus Lancet 33 gauge Misc USE DAILY [...] coronary artery disease by [facility] 11/09/2022 I25.10 Heart failure with reduced ejection fraction due to heart valve disease I50.20, I38 Cardiogenic shock R57.0 S/P TAVR (transcatheter aortic valve replacement) Z95.2 Past Medical History: Diagnosis Date Anemia Past Surgical History: Procedure Laterality Date PRG CATH PLMT LEFT HEART CATH & ARTS W/INJ & ANGIO IMG S&I N/A 11/09/2022 CORONARY ANGIOGRAPHY; W [facility],POSSIBLE PCI (WRVU 5.6) performed by Mario Alberto Escobedo MD at [facility] CATH LABS PRO AORTOPLAS FOR SUPRAVALV STEN N/A 09/21/2016 @AORTOPLASTY FOR SUPRAVALVULAR STENOSIS (WRVU 29.33) performed by Alirio Hudson MD at [facility] MAIN OR PRO REPLACEMENT PROSTHETIC AORTIC VALVE OPEN W CARDIOPULMONARY BYPASS HOMOGRF/STENT N/A 09/21/2016 @REPLACE AORTIC VALVE, OPEN, W\CPB, W\PROSTHETIC VALVE (WRVU 41.32) performed by Alirio Hudson MD at [facility] MAIN OR Social History and [...] which prompted her to present to [employer]. She also endorses some intermittent retrosternal chest pain with exertion.She endorses some dizziness with exertion, but has not gotten faint or passed out. At [employer] she was noted to be afebrile, blood pressure 105/64, HR 120s, satting 95% on 2L NC. Labs from [employer] are below, of note she had elevated [...] which prompted the transfer to us. [facility] labs: CBC - Hgb 10.5 CMP - Cr 1.1 BNP 55861 HsTrop 1358 Lactate 1.6 D-dimer 1183 Interval [...] Code Status: Attempt Cardiopulmonary Resuscitation - Inpatient [facility] Roman Reid MD Internal Medicine PGY-1 Pager [phone], M1-S1 Service Associated attestation - Juan Luis Gonzalez MD - 05/08/2023 10:00 PM EDT Cardiology Attending Addendum Active Hospital Problems Diagnosis Symptomatic severe aortic stenosis with low ejection fraction Heart failure with reduced ejection fraction due to heart valve disease Mild coronary artery disease by [facility] 11/09/2022 Hyperlipidemia, unspecified History of aortic [...] PCP: Magdalena Acosta MD PCP phone number: [phone] Date of Admission: 05/08/2023 ( Hospital Day 0 days ) Attending:Enrique Chua MD ID: Purnima Thacker is a 67 y.o. female w/ PMH of s/p bioprosthetic AVR in 2016 with recent concern for severe restenosis, HTN, HLD, mixed connective tissue disease, who presents in transfer from [employer] with worsening BONILLA and weight gain concerning [...] days, which promptedher to present to [employer]. She also endorses some intermittent retrosternal chest pain with exertion. She endorses some dizziness with exertion, but has not gotten faint or passed out. At [employer] she was noted to be afebrile, blood pressure 105/64, HR 120s, satting 95% on 2L NC. Labs from [employer] are below, of note she had elevated [...] which prompted the transfer to us. [employer] [facility] labs: CBC - Hgb 10.5 CMP - Cr 1.1 BNP 93946 HsTrop 1358 Lactate 1.6 D-dimer 1183 Vasoactive [...] disease, who [facility] B[facility]ILLA and weight gain concerning for [...] remains HD stable, can transfer out of [facility]. -Structural Heart consult; will need [...] to the planned procedure. Hand Hygiene: The carbon rod inserter did perform hand hygiene prior to [...] Successful arterial line placement. Crispin Timmons MD Stretcher Operator Associated attestation - Onelia Schwartz MD [...] information for follow-up [facility] H[facility], [place] [address] [place] [address] Cardiac Rehab, [facility] [address] [place] [address] [facility] [address] [place] [address] Transportation: family or friend will provide *Brother [...] Type: *No Product type* / Secondary Insurance: [employer] [place] Prescription Coverage: Yes This plan was formulated with input from patient, family (please identify family/friend involved ifapplicable) and team. All are in agreement with plan. Aliza Martino MSN-Ed, RN ACM physical biochemist Office of Care Management Pager #[phone] * Plan of Care - Favian Mckeon [...] Chaudhary RN - 05/21/2023 4:46 PM EDTSummary: [facility] referral OFFICE OF CARE MANAGEMENT [...] Type: *No Product type* / Secondary Insurance: [employer] [place] Last Physical Therapy Recommendation: (Home with assist [...] planning needs. describing our affiliations within the [facility] and educate about their right to choose where referrals are sent. provide a list of Home Health Agencies / Durable Medical Equipment vendors which serve their preferred geographic area. They have requested referrals to: [facility] [address] [place] [address] Ortho Care Located @ [place], [place] Note routed to a Senior Rd Engineer who will communicate referrals to facilities and provide any required information. Transportation: family or friend will provide *Brother Raymond on Tuesday 05/22 at 1000 Barriers to discharge: Does not have home 22/02 assist available until tomorrow Tuesday 05/22 Plan going forward: Discharge home into the 22/02 home care of brother Raymond with [facility] and [facility] PT/OT services on Tuesday 05/22 [...] Attending: All Staff: Staff Role Juanita Almaguer Director Workers Compensation Laure Ricks PA Physician Rouge Sifter Magdalena Rodriguez pulpwood cutter Nurse Consuelo Espinoza, pulpwood cutter Nurse Post-operative diagnosis/Indication: Right pleural effusion [...] Type: *No Product type* / Secondary Insurance: [employer] [facility] Last Physical Therapy Recommendation: [...] Office of Care Management letter from the Veterin[employer] pertaining to rehab referrals. provide a letter describing our affiliations within the [facility] and educate about their right to choose where referrals are sent. provide the CMS Star Quality Rating handout. review the different levels of rehab including SNF, swing, and acute. provide a list of facilities within their preferred geographic area. request that they provide at least three choices for referral. They have requested referrals to: [facility] [address] [place] [address] [facility]) [address] [place] [address] (Accepts pts only after exhausting all other local SNF options) [facility] ([facility]) ([facility]) [address] [place] [address] PHONE: [phone] FAX: [phone] Simin Benavides [place] ([facility]) [facility]) [address] [place] [address] PHONE: [phone] FAX: [phone] Note routed to a Senior Rd Engineer who will communicate referrals to facilities [...] [facility] Purnima Thacker was seen today regarding participation in the outpatient Phase 2 Cardiac Rehabilitation at [facility]. The patient agrees to a referral to [...] from the original note were not included. [facility] NEPHROLOGY/HYPERTENSION CONSULT NOTE PATIENT: Purnima Thacker : [...] in her course. She ultimately underwent a mqklb-gx-pkceb procedure on and tolerated it well (see [...] 1423 05/12/23 1105 PHART 7.39 7.37 7.34* QYJ8COA 33* 36 42 PO2ART 101 102 73* GPD3ZMI 19.5* 20.4 22.1 LACTATEVEN 1.5 1.8 2.8* VYT9AML 40 40 40 PFRATIOART2 252 255 182 VBG (Venous Blood Gas) Recent Labs 05/12/23 1557 05/12/23 1423 05/12/23 1105 LACTATEVEN 1.5 1.8 2.8* Mixed Venous Sat Recent Labs 05/12/23 1425 05/12/23 0508 05/12/23 0321 [id number] 59.9 30.7 32.7 LFT's: Recent Labs 05/14/23 0110 05/13/23 0115 05/12/23 0600 BILITOT 0.4 0.5 0.9 BILIDIR -- 0.3 -- ALBUMIN 3.6 3.0* 3.5 ALKPHOS 86 85 100 ALT 437* 903* 1,174* AST 319* 792* 1,435* No results found for: UPROTCREAT No results found for: TPROTEINPEP, ALBELECT No results found for: MICROALBUR, XHWC49VKD No results found for: HA1C Lab Results Component Value Date CALCIUM 8.5 05/14/2023 PHOS 4.7 (H) 05/08/2023 No results found for: 25OHVITD MICROBIOLOGY: ProcedureComponentValueUnitsDate/TimeUrine culture [[id number]]Collected: 05/11/231921Lab Status: Final resultSpecimen: Clean Catch UrineUpdated: [...] consulted for assessment if this patient needs IT INFRASTRUCTURE SPECIALIST. Atthis time, we can likely hold off on IT INFRASTRUCTURE SPECIALIST. Her volume status appears sufficient and her metabolic kanwal angements with mild acidosis is not too profound. Patient does not have significant uremic symptoms. We can hold off for today, but the patient is a high risk candidate for needing IT INFRASTRUCTURE SPECIALIST in future daysespecially if her Cr curve trends the direction it is for the next several days. S/p Mksmr-dd-Mqvjn TF TAVR: Management per cardiology. On milrinone gtt. PLAN: - Please obtain following diagnostics: renal US, urinalysis, urine prot/Cr ratio, urine albumin/Cr ratio, CK, uric acid, serum osmol, daily VBGs - No acute indications for IT INFRASTRUCTURE SPECIALIST/dialysis. We will keep close eye on Cr trend, volume status, and metabolics to ensure patient still does not need IT INFRASTRUCTURE SPECIALIST as she ensues intrinsic renal recovery [...] M.H.A., M.A. PGY-V Nephrology-Hypertension Fellow Page # [phone] [facility] [address] 2nd floor, Canvas Cutter [address] [place] [address] * Care Management - Mario Alberto Olmos [...] Type: *No Product type* / Secondary Insurance: [facility] Plan for discharge is: Home [...] for a TAVR at 730. Returned to [facility] at 0945. Was intubated in the lab head due to agitation. Maintained bedrest for 5 [...] Operative Note Patient Name: Purnima Thacker : [id number] MR#: [id number] Case Date: 05/12/2023 Surgeon: Surgeon(s) and Role: [...] procedure Note: Patient Name: Purnima Thacker : [id number] MR#: [id number] Case Date: 05/12/2023 Operators Surgeon: Surgeon(s) and [...] main with 4.0 x 30 mm Resolute [place] Drug Eluting Stent Perclose x1 + Angio-seal 8 Fr x1, RFA Manual pressure, LFA Manual pressure, LFV Endotracheal intubation (performed by cardiac anesthesia) Preliminary findings: Successful right transfemoral TAVR Eflif-mg-Qivup with a 23 mm Lai 3 THV. [...] MD, M.Sc. Structural Heart Disease Fellow Pager :[phone] Antelmo Sharma MD Pager [phone] * Op Note - Alirio Hudson MD - 05/12/2023 7:37 AM EDT Preop Diagnosis: Severe aortic stenosis, symptomatic. Postop Diagnosis: Same. Procedure: Transfemoral TAVR procedure with 23mm valve. Surgeon: Alirio Hudson M.D. Healthcare Technician: Danny CULP Procedure: The patient was taken to the lab head. The patient had monitored anesthesia care. 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 [facility] [place] [address] STRUCTURAL HEART DISEASE CONSULTATION NOTE PRIMARY CARE [...] who had been referred for possible TAVR clouk-ne-grdlj evaluation. Her primary symptoms are of dyspnea [...] [facility]. 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 PROBLEM LIST: Patient Active Problem List Diagnosis Symptomatic severe aortic stenosis with low ejection fraction Mild coronary artery disease by [facility] 11/09/2022 Heart failure with reduced ejection [...] send to lab ([facility]) Result Value Ref Range Lactate WB 1.8 [...] leads Confirmed by MD Harshil, Enrique Bell ([id number]) on 05/10/2023 8:11:46 AM Assessment and Plan: [...] Antelmo Sharma MD Structural Heart Disease Pager [phone] * Plan of Care - Sarahi Nice RN - 05/10/2023 3:55 AM EDTSumavis: VALDO Note and Care Plan Sarahi Nice RN assumed care of pt at time of their arrival to room 362 from [facility]. Pt voices shortness of breath [...] from another hospital Location: admitted from [employer] Reason for Hospitalization: Critical aortic stenosis, causing [...] 180 days) Any patient receiving care in [place] must abide by [place] law. The hierarchy [...] Current DME: none Home Address confirmed as: [address] [place] [id number] Social & Family Supports: All names listed [...] Type: *No Product type* / Secondary Insurance: [facility] [place] ONLY if patient has Medicare A&B - Does this patient have secondary insurance?: Yes ; Prescription Coverage: Yes Preferred Pharmacy: updated to [facility] Status: Patient is a : No Primary Care Provider confirmed: Magdalena Acosta MD [phone] Patient/Caregiver Goals of Treatment: Potential Needs for [...] of a 2 story home with [address] [facility]. Patient is independent with ADL's at baseline [...] of care planning. Alie Bradshaw RN, CM Pager-[phone] * Plan of Care - Emily Lucero RN - 05/08/2023 2:54 PM EDT OUTCOME EVALUATION NOTE: OUTCOME SUMMARY: Pt arrived from [employer] [facility]. A&O, no c/o pain or SOB. Heparin [...] AM EDT Laboratory Appointment Lab at [facility] Hematology Oncology [address] [place] [address] 05/12/2024 10:00 AM EDT Office Visit Hematology [place] [address] Markel Borjas MD [facility] [address] HEMATOLOGY [place] [address] 03/01/2025 4:15 PM EDT Office Visit Dermatology at [place] [address] [facility] [place] [phone] Marek Bonilla MD [address] [place] [address] Scheduled Referrals Name Type Priority Associated Diagnoses [...] Heart Cath W/Inj L Ventriculography, Img S&I ([id number]) 05/12/2023 7:37 AM EDT Aortic valve stenosis, [...] COLOR DOPP (07/08/2023 12:15 PM EST) Pathologist [facility] EF 20 HEARTHittite Microwave SYSTEM Anatomical Region Laterality Modality Cardiac Other 07/08/2023 10:3 1 AM EST Narrative 07/08/2023 12:26 PM EST [address] [place] [id number] ? Echocardiogram Report Name: PURNIMA THACKER ?Study Date: 07/08/2023 10:31 AMBP: 118/60 mmHg ? Patient Location: : 1955 ? Height: 155 cm ? Account: [id number] Age: 67 yrs ? Weight: 74 kg Gender: Female ?BSA: 1.7 m2 Ordering Physician: ALIRIO HUDSON Referring Physician: VINOD JUÁREZ Performed By: Felicia Norris RDCS Reason For Study: S/P TAVR Exam Location: [facility]. Interpretation Summary Left ventricular systolic function [...] no significant change (post-procedure). Procedure Limited - 38278. Doppler - 89172. Color Doppler - 88860. Satisfactory quality. This study is limited because [...] Note Lee Kincaid MD - 07/08/2023 [address] [place] [address] Echocardiogram Report Name: PURNIMA THACKER Study Date: 0:31 AMBP: 118/60 mmHg Patient Location: : 1955 Height: 155 cm Account: [id number] Age: 67 yrs Weight: 74 kg Gender: Female BSA: 1.7 m2 Ordering Physician: ALIRIO HUDSON Referring Physician: VINOD JUÁREZ Performed By: Felicia Norris RDCS Reason For Study: S/P TAVR Exam Location: [facility]. Interpretation Summary Left ventricular systolic function [...] is nosignificant change (post-procedure). Procedure Limited - 49051. Doppler - 42546. Color Doppler - 13069. Satisfactoryquality. This study is limited because of [...] [place] Co de Phone Number [facility] [place] [address] * (ABNORMAL) Basic Metabolic Panel (non-fasting) (05/22/2023 3:57 AM EDT) Pathologist [facility] Glucose 88 65 - 199 mg/dL [facility] [...] Carbon Dioxide 23 22 - 31 mmol/L [facility] Anion Gap 11 5 - 15 mmol/L [facility] Calcium 8.6 8.5 - 10.5 mg/dL [facility] Est Glomerular Filtration Rate 95 >=60 mL/min/1. 73 m?? [facility] Lab Mara Maggie OSBORN CHEMISTRY ORDERABL ES [facility] [place] [place] [address] * (ABNORMAL) Basic Metabolic Panel (non-fasting) (05/21/2023 5:06 AM EDT) Pathologist [facility] Glucose 87 65 - 199 mg/dL [facility] Comment:Diabetes: >=200 mg/d L plus symptoms Blood Urea Nitrogen 25(H) 8 - 18 mg/dL [facility] Creatinine 0.84 0.70 - 1.20 mg/dL [facility] Sodium 136 135 [...] Carbon Dioxide 26 22 - 31 mmol/L [facility] Anion Gap 8 5 - 15 mmol/L [facility] Calcium 8.9 8.5 [...] Resulting Agency Comment Spec In Lab [facility] SAL[employer] MARKETING VICE PRESIDENT CHEMISTRY ORDERABL ES Performing Organization Address [facility] Co de Phone Number [facility] [place] [address] * Lavender Tube HOLD (05/20/2023 2:52 AM EDT) Lavender Hold Sample in lab. [facility] Blood Venous Draw / Unknown 05/20/2023 2:52 AM EDT 05/20/2023 3:04 AM EDT [facility] SALES AND MARKETING VICE PRESIDENT HEMATOLOGY ORDERAB LES Performing Organization Address [facility] Co de Phone Number [facility] [place] [address] * (ABNORMAL) Basic Metabolic Panel (non-fasting) (05/20/2023 [...] Agency Comment Spec In Lab Mara Thomasfield SALES [employer] MARKETING VICE PRESIDENT CHEMISTRY ORDERABL ES Performing Organization Address [facility] Co de Phone Number [facility] [place] [address] * (ABNORMAL) Potassium (05/20/2023 2:52 AM EDT) [facility] Potassium 3.4(L) 3.5 - 5.0 mmol/L [...] Agency Comment Spec In Lab Mara Thomasfield SALES AND MARKETING VICE PRESIDENT CHEMISTRY ORDERABL ES Performing Organization Address City/[facility] Co de Phone Number [facility] [place] [address] * XR Chest PA & Lateral (Generic) [...] questions please contact the health critical care registered nurse that requested your imaging first. ? Electronically signed by: Chyna Johnson MD, [facility] ??([phone]), at 05/19/2023 2:19 PM Narrative 05/19/2023 2:19 [...] have questions please contactthe health critical care registered nurse that requested your imaging first. Electronically signed by: Chyna Johnson MD, [facility]([phone]), at 05/19/2023 2:19 PM Alirio Hudson MD IMG DX ORDERABLES * (ABNORMAL) Basic Metabolic Panel (non-fasting) (05/19/2023 5:49 AM EDT) Glucose 93 65 - 199 mg/dL [facility] Comment:Diabetes: >=200 mg/d L plus symptoms Blood Urea Nitrogen 45(H) 8 - 18 mg/dL [facility] Creatinine 1.02 0.70 - 1.20 mg/dL [facility] Sodium 138 135 [...] questions. Chloride 102 98 - 107 mmol/L [facility] Carbon Dioxide 26 22 - 31 mmol/L [facility] Anion Gap 10 5 - 15 mmol/L [facility] Calcium 9.7 8.5 - 10.5 mg/dL [facility] Est Glomerular Filtration Rate 60 >=60 mL/min/1. 73 m?? [facility] Comment: This patient's [...] Agency Comment Spec In Lab Mara Serrano SALES [employer] MARKETING VICE PRESIDENT [place] [address] * IR Chest Tube Placement Right (05/18/2023 [...] 18 mg/dL [facility] Comment:result rechecked-[facility] Creatinine 1.64(H) 0.70 - 1.20 mg/dL [facility] Comment:result rechecked-[facility] Sodium 137 135 - 145 [...] Agency Comment Spec In Lab Mara Serrano SALES AND MARKETING VICE PRESIDENT CHEMISTRY ORDERABL ES [facility] [place] [address] * XR Chest PA & Lateral (Generic) [...] questions please contact the health critical care registered nurse that requested your imaging first. ? [...] have questions please contactthe health critical care registered nurse that requested your imaging first. Electronically signed by: Ghassan Reyes MD, [facility]([phone]), at 05/17/2023 11:46 AM Alirio Hudson MD IMG DX ORDERABLES * (ABNORMAL) Comprehensive metabolic panel (non-fasting) (05/17/2023 4:35 AM EDT) Glucose 89 65 - 199 mg/dL [facility] Comment:Diabetes: >=200 mg/d L plus symptoms Blood Urea Nitrogen 97(H) 8 - 18 mg/dL [facility] Creatinine 2.97(H) 0.70 - 1.20 mg/dL [facility] Comment:result rechecked-NINA Sodium 135 135 - 145 mmol/L WE[facility] [...] CHEMISTRY ORDERABLE S [facility] [place] [address] * Potassium (05/16/2023 11:15 PM EDT) Potassium [...] MD CHEMISTRY ORDERABLE S Performing Organization Address [facility]/ZIP Co de Phone Number [facility] [place] [address] * Magnesium (05/16/2023 5:22 PM EDT) Pathologist [facility] Magnesium 0.96 0.69 - 1.07 mmol/L [facility] Blood 05/16/2023 5:22 PM EDT 05/16/2023 5:27 PM EDT Narrative Resulting Agency Comment Spec In Lab Alirio Hudson MD CHEMISTRY ORDERABLE S Performing Organization Address [facility] Co de Phone Number [facility] [place] [address] * (ABNORMAL) Basic Metabolic Panel (non-fasting) (05/16/2023 5:22 PM EDT) Pathologist [facility] Glucose 106 65 - 199 mg/dL [facility] Comment:Diabetes: >=200 mg/d L plus symptoms Blood Urea Nitrogen 103(H) 8 - 18 mg/dL [facility] Creatinine 3.91(H) 0.70 - 1.20 mg/dL [facility] Comment:result rechecked-imm Sodium 132(L) 135 - 145 mmol/L [facility] Potassium 3.6 3.5 [...] City/[facility]/ZIP Co de Phone Number [facility] [place] [address] * (ABNORMAL) Potassium (05/16/2023 11:43 AM EDT) Potassium 3.3(L) 3.5 - 5.0 mmol/L WE[facility] [...] City/[facility]/ZIP Co de Phone Number [facility] [place] [address] * (ABNORMAL) Ferritin (05/16/2023 4:41 AM EDT) Pathologist [facility] Ferritin 1,813(H) 30 - 400 ng/mL WE[facility] [...] MD CHEMISTRY ORDERABLES [facility] [place] [place] [address] * (ABNORMAL) PTH (05/16/2023 4:41 AM EDT) [facility] Parathyroid Hormone 120(H) 15 - 65 pg/mL [facility] Blood 05/16/2023 4:41 AM EDT 05/16/2023 4:54 AM EDT Narrative Resulting Agency Comment Spec In Lab Kristopher Ayoub MD CHEMISTRY ORDERABLES [facility] [place] [place] [address] * Vitamin D, 25-Hydroxy (05/16/2023 4:41 AM EDT) [facility] Vitamin D Total 25 OH 33 21 - 100 ng/mL [facility] Vit D Interp Sufficient [facility] Blood 05/16/2023 4:41 AM EDT 05/16/2023 4:54 AM EDT Narrative Resulting Agency Comment Spec In Lab Kristopher Ayoub MD CHEMISTRY ORDERABLES [facility] [place] [place] [address] * (ABNORMAL) Blood Gas Venous ([facility]) (05/16/2023 4:22 AM EDT) pH, Venous 7.41 7.32 - 7.42 [facility] PCO2, Venous 32(L) 41 - 51 mmHg [facility] PO2, Venous 73(H) 25 - 40 mmHg [facility] Bicarbonate, Venous 19.6 mmol/L [facility] Base Excess, Venous -5.1 mmol/L [facility] Hgb Blood Gas 9.7(L) 11.7 - 15.5 g/dL [facility] Oxyhemoglobin, Venous 92.8 % [facility] Carboxyhemoglob in, Venous 0.1 % [facility] Comment: Nonsmokers: 0.5-1.5% COHB Smokers: Variable, but usually less than 10% Toxic: 20-30% COHB Lethal: Greater than 60% COHB Methemoglobin, Venous 0.3 <=1.5 % [facility] Na Whole Blood 130(L) 135 - 145 mmol/L [facility] K Whole Blood 3.7 3.5 - 5.0 mmol/L [facility] Comment: Please note: Patients with WBC >100,000 may have falsely elevated Potassium levels. Contact the Clinical Chemistry Laboratory if there are any questions. ICa Whole Blood 1.15 1.15 - 1.33 mmol/L [facility] Comment: Note: ??Total bilirubin higher than 20 mg/dL may lead to falsely low ionized calcium. CL Whole Blood 95(L) 98 - 107 mmol/L [facility] Gluc Whole Bld 82 65 - 199 mg/dL [facility] Comment:Diabetes: >=200 mg/d L plus symptoms Lactate WB 1.1 0.5 - 2.2 mmol/L [facility] Blood Gas Source Venous [facility] Blood Venous Draw / Unknown 05/16/2023 4:22 AM EDT 05/16/2023 4:31 AM EDT Narrative Resulting Agency Comment Spec In Lab Bonita TOBAR CHEMISTRY ORDERABLES [facility] [place] [place] [address] * (ABNORMAL) Differential, Automated (05/16/2023 4:20 AM EDT) Neutrophil % 84.1 % [facility] Neutrophil Absolute 6.22(H) 1.70 - 6.10 x10(3)/mc L [facility] Lymph % 5.8 % [facility] Lymphocytes Abs 0.4(L) 0.9 - 3.2 x10(3)/mc L [facility] Monocyte % 8.8 % [facility] Monocyte Abs 0.6 0.3 - 0.9 x10(3)/ L [facility] Eos % 0.4 % [facility] Eosinophils Abs 0.0 0.0 - 0.4 x10(3)/mc L [facility] Basophil % 0.0 % [facility] Baso Absolute 0.0 0.0 - 0.1 x10(3)/ L [facility] Immature Gran [...] Absolute 0.07(H) 0.00 - 0.04 x10(3)/ L [facility] Blood 05/16/2023 4:20 AM EDT 05/16/2023 4:29 AM EDT Narrative Resulting Agency Comment Spec In Lab James Agustin MD HEMATOLOGY ORDER JODIE [facility] [place] [address] * (ABNORMAL) Hemogram (05/16/2023 4:20 AM EDT) White Blood Cell 7.4 4.0 - 9.5 x10(3)/mc L [facility] Red Blood Cell 2.40(L) 4.00 - 5.21 x10(6)/mc L [facility] Hemoglobin 7.8(L) 11.7 - 15.5 g/dL [facility] Hematocrit 22.5(L) 35.7 - 45.8 % [facility] Mean Cell Volume 93.8 82.6 - 94.4 fL [facility] Mean Cell Hemoglobin [...] Platelet Volume 11.3 7.6 - 12.9 fL [facility] NRBC% auto 0.7 % [facility] NRBC Absolute 0.050(H) 0.000 - 0.000 x10(3)/ L [facility] Blood 05/16/2023 4:20 AM EDT 05/16/2023 4:29 AM EDT Narrative Resulting Agency Comment Spec In Lab James Agustin MD HEMATOLOGY ORDER JODIE [facility] [place] [address] * (ABNORMAL) Basic Metabolic Panel (non-fasting) (05/16/2023 [...] City/[facility]/ZIP Co de Phone Number [facility] [place] [address] * (ABNORMAL) Iron and TIBC (05/16/2023 4:20 [...] MD CHEMISTRY ORDERABLES [facility] [place] [address] * (ABNORMAL) Basic Metabolic Panel (non-fasting) (05/15/2023 12:50 AM EDT) Glucose 101 65 - 199 mg/dL [facility] Comment:Diabetes: >=200 mg/d L plus symptoms Blood Urea Nitrogen 109(H) 8 - 18 mg/dL [facility] Creatinine 5.62(H) 0.70 - 1.20 [...] CHEMISTRY ORDERABLE S [facility] [place] [address] * (ABNORMAL) Hemogram (05/15/2023 12:50 AM EDT) White Blood Cell 9.1 4.0 - 9.5 x10(3)/mc L [facility] Red Blood Cell 2.19(L) 4.00 - 5.21 x10(6)/mc L [facility] Hemoglobin 7.2(L) 11.7 - 15.5 g/dL [facility] Hematocrit 20.6(L) 35.7 - 45.8 % [facility] Mean Cell Volume 94.1 82.6 - 94.4 fL [facility] [...] Platelet Volume 10.4 7.6 - 12.9 fL [facility] NRBC% auto 2.1 % [facility] NRBC Absolute 0.190(H) 0.000 - 0.000 x10(3)/ L [facility] Blood 05/15/2023 12:5 0 AM EDT 05/15/2023 12:52 AM EDT Narrative Resulting Agency Comment Spec In Lab Alirio Hudson MD HEMATOLOGY ORDERABL ES Performing Organization Address City/State/[facility] Co de Phone Number [facility] [place] [address] * (ABNORMAL) BLOOD GAS 2 VENOUS (05/15/2023 [...] [facility] Oxyhemoglobin, Venous 58.1 % [facility] Carboxyhemoglob in, Venous 0.3 % [facility] Comment: Nonsmokers: 0.5-1.5% COHB Smokers: Variable, but usually less than 10% Toxic: 20-30% COHB Lethal: Greater than 60% COHB Methemoglobin, Venous 0.6 <=1.5 % [facility] Na Whole Blood 136 135 - 145 mmol/L [facility] K Whole Blood [...] [facility] Gluc Whole Bld 101 65 - 199 mg/dL [facility] Comment:Diabetes: >=200 mg/d L plus symptoms Lactate WB 1.3 0.5 - 2.2 mmol/L [facility] Flow, Mike 1.0 LPM [facility] Blood Gas Source Venous [facility] Blood 05/15/2023 12:4 9 AM EDT 05/15/2023 12:49 AM EDT Alirio Hudson MD POINT OF CARE TEST ORDERABLES Performing Organization Address City/State/[facility] Co de Phone Number [facility] [place] [address] * US Retroperitoneal Complete (05/14/2023 3:53 PM [...] who have questions, please contact the health critical care registered nurse that requested your imaging first. ? Hayden Robledo, Staff Physician Electronically Signed Final Report ?? 05/14/2023 04:39 pm Narrative 05/14/2023 4:39 PM EDT Renal ? (Signed Final 05/14/2023 04:39 pm) PATIENT INFO: ID #: ? [id number] ?: ??[birth year] (67 yrs)(F) Name: ? PURNIMA THACKER ?Visit Date: 05/14/2023 03:44 pm PERFORMED BY: Attending: ?Meena CULP, Hayden Stafford Resident: ? Anand Camejo MD Performed By: ? Consuelo Tello RDMS Referred By: ?ALIRIO HUDSON Location: ? [place] SERVICE(S) PROVIDED: URETRO - Retroperitoneal Complete - [id number] ? [id number] INDICATIONS: [facility] COMPARISON: CT: Abdomen/Pelvis 05/11/23 RIGHT [...] 05/14/2023 04:39 pm) PATIENT INFO: ID #: [id number] : 55 (67 yrs)(F) Name: PURNIMA THACKER Visit Date: 05/14/2023 03:44 pm PERFORMED BY: Attending: Hayden Robledo MD Resident: Anand Camejo MD Performed By: Consuelo Tello RDMS Referred By: ALIRIO HUDSON Location: [facility] SERVICE(S) PROVIDED: URETRO - Retroperitoneal Complete - [id number] INDICATIONS: [facility] COMPARISON: CT: Abdomen/Pelvis 05/11/23 RIGHT [...] who have questions, please contact the health critical care registered nurse that requested your imaging first. Hayden [...] City/[facility]/ZIP Co de Phone Number [facility] [place] [address] * (ABNORMAL) Uric acid (05/14/2023 3:17 PM EDT) Uric Acid 14.9(H) 2.5 - 6.5 mg/dL [facility] Blood 05/14/2023 3:17 PM EDT 05/14/2023 3:31 PM EDT Narrative Resulting Agency Comment Spec In Lab Alirio Hudson MD CHEMISTRY ORDERABLE S [facility] [place] [address] * (ABNORMAL) Osmolality (05/14/2023 3:17 PM EDT) Osmolality 311(H) 275 - 295 mOsm/kg [facility] Blood 05/14/2023 3:17 PM EDT 05/14/2023 3:31 PM EDT Narrative Resulting Agency Comment Spec In Lab Alirio Hudson MD CHEMISTRY ORDERABLE S [facility] [place] [address] * (ABNORMAL) Differential, Automated (05/14/2023 1:10 AM EDT) Neutrophil % 87.2 % [facility] Neutrophil Absolute 9.74(H) 1.70 - 6.10 x10(3)/mc L [facility] Lymph % 3.9 % [facility] Lymphocytes Abs 0.4(L) 0.9 - 3.2 x10(3)/mc L [facility] Monocyte % 7.9 % [facility] Monocyte Abs 0.9 0.3 - 0.9 x10(3)/mc L [facility] Eos % 0.0 % [facility] Eosinophils Abs 0.0 0.0 - 0.4 x10(3)/mc L [facility] Basophil % 0.1 % [facility] Baso Absolute 0.0 0.0 [...] Absolute 0.10(H) 0.00 - 0.04 x10(3)/mc L [facility] Blood 05/14/2023 1:10 AM EDT 05/14/2023 1:24 AM EDT Narrative Resulting Agency Comment Spec In Lab Bonita TOBAR HEMATOLOGY ORDERABLE S [facility] [address] * (ABNORMAL) Hemogram (05/14/2023 1:10 AM EDT) White Blood Cell 11.2(H) 4.0 - 9.5 x10(3)/mc L [facility] Red Blood Cell 2.19(L) 4.00 - 5.21 x10(6)/mc L [facility] Hemoglobin 7.2(L) 11.7 - 15.5 g/dL [facility] Hematocrit 20.3(L) 35.7 - 45.8 % [facility] Mean Cell Volume [...] Platelet Volume 10.4 7.6 - 12.9 fL [facility] NRBC% auto 1.5 % [facility] NRBC Absolute 0.170(H) 0.000 - 0.000 x10(3)/mc L [facility] Blood 05/14/2023 1:10 AM EDT 05/14/2023 1:24 AM EDT Narrative Resulting Agency Comment Spec In Lab Bonita TOBAR HEMATOLOGY ORDERABLE S Performing Organization Address City/State/[facility] Co de Phone Number [facility] [place] [address] * (ABNORMAL) Comprehensive metabolic panel (non-fasting) (05/14/2023 [...] CHEMISTRY ORDERABLE S [facility] [place] [address] * APTT (05/13/2023 10:15 AM EDT) Partial [...] HEMATOLOGY ORDERABL ES Performing Organization Address [facility] de Phone Number [facility] [place] [address] * (ABNORMAL) Prothrombin Time (05/13/2023 10:15 AM EDT) Prothrombin Time 14.6(H) 9.4 - 12.5 sec [facility] International Normalization Ratio 1.3 WEST [...] MD HEMATOLOGY ORDERABL ES Performing Organization Address [facility] de Phone Number [facility] [place] [address] * EKG 12 Lead (05/13/2023 9:22 AM EDT) Ventricular rate 92 BPM MUSE SYSTEM Atrial Rate 92 BPM MUSE SYSTEM P-R Interval 140 ms MUSE SYSTEM QRS Duration 104 ms MUSE SYSTEM Q-T Interval 384 ms MUSE SYSTEM QTC Calculated (Bezet) 474 ms MUSE SYSTEM Calculated P [place] 33 degrees MUSE SYSTEM Calculated R [place] 41 degrees MUSE SYSTEM Calculated T [place] -35 degrees MUSE SYSTEM INTERPRETATION Sinus rhythm with frequent Premature ventricular complexes Septal infarct , age undetermined ST & T wave abnormality, consider lateral ischemia Abnormal ECG When compared with ECG of 12-MAY-2023 10:10, Premature ventricular complexes are now Present I personally reviewed the tracing and edited the fellows interpretation Confirmed by fellow MD Anitha, Carissa ([id number]) on 05/13/2023 3:25:30 PM Confirmed by Maxx Best ([id number]) on 05/13/2023 8:30:56 PM MUSE SYSTEM 05/13/2023 9:22 AM EDT 05/13/2023 8:30 PM EDT Alirio Hudson MD ECG ORDERABLES MUSE SYSTEM * (ABNORMAL) Differential, Automated (05/13/2023 1:15 AM EDT) Neutrophil % 88.1 % [facility] Neutrophil Absolute 7.62(H) 1.70 - 6.10 x10(3)/mc L [facility] Lymph % 3.1 % [facility] Lymphocytes Abs 0.3(L) 0.9 - 3.2 x10(3)/mc L [facility] Monocyte % 7.9 % [facility] Monocyte Abs 0.7 0.3 - 0.9 x10(3)/mc L [facility] Eos % 0.0 % [facility] Eosinophils Abs 0.0 0.0 - 0.4 x10(3)/mc L [facility] Basophil % 0.1 % [facility] Baso Absolute 0.0 0.0 [...] HEMATOLOGY ORDERABLE S [facility] [place] [address] * (ABNORMAL) Hemogram (05/13/2023 1:15 AM EDT) [...] [facility] NRBC% auto 0.5 % [facility] NRBC Absolute 0.040(H) 0.000 - 0.000 x10(3)/mc L [facility] Blood 05/13/2023 1:15 AM EDT 05/13/2023 1:29 AM EDT Narrative Resulting Agency Comment Spec In Lab Lorri TOBAR HEMATOLOGY ORDERABLE S [facility] [place] [address] * (ABNORMAL) Hepatic Function Panel (05/13/2023 1:15 AM EDT) Protein, Total 5.5(L) 6.1 - 8.0 g/dL [facility] Albumin 3.0(L) 3.2 - 5.2 g/dL [facility] Aspartate Aminotransferase 792(H) 0 - 30 unit/L [facility] Alanine Aminotransferase 903(H) [...] [place] Co de Phone Number [facility] [place] [address] * (ABNORMAL) Basic Metabolic Panel (non-fasting) (05/13/2023 1:15 AM EDT) Glucose 107 65 - 199 mg/dL [facility] Comment:Diabetes: >=200 mg/d L plus symptoms Blood Urea Nitrogen 82(H) 8 - 18 mg/dL [facility] Creatinine 3.15(H) 0.70 - 1.20 mg/dL [facility] Comment:result rechecked-OG Sodium 132(L) 135 - 145 mmol/L WE[facility] [...] questions. Chloride 95(L) 98 - 107 mmol/L [facility] Carbon Dioxide 20(L) 22 - 31 mmol/L [facility] Anion Gap 17(H) [...] [place] Co de Phone Number [facility] [place] [address] * (ABNORMAL) BLOOD GAS 2 ARTERIAL (05/12/2023 [...] Whole Blood 96(L) 98 - 107 mmol/L [facility] Gluc Whole Bld 178 65 - 199 mg/dL [facility] Comment:Diabetes: >=200 mg/d L plus symptoms. Lactate WB 1.5 0.5 - 2.2 mmol/L [facility] FIO2 Art 40 % [facility] PF Ratio Art 252 [facility] Blood 05/12/2023 3:57 PM EDT 05/12/2023 3:57 PM EDT Alirio Hudson MD POINT OF CARE TEST ORDERABLES Performing Organization Address [facility] Co de Phone Number [facility] [place] [address] * (ABNORMAL) Coox2 (05/12/2023 2:25 PM EDT) pO2, Coox 37 mmHg [facility] Hgb Blood Gas 9.5(L) 11.7 - 15.5 g/dL [facility] Oxyhemoglobin, Coox 59.9 % [facility] Carboxyhemoglo bin, Coox 0.3 % [facility] Comment: Nonsmokers: 0.5-1.5% COHB Smokers: Variable, but usually less than 10% Toxic: 20-30% COHB Lethal: Greater than 60% COHB Methemoglobin, Coox 0.7 <=1.5 % [facility] Source Coox Mixed Venous [facility] Blood 05/12/2023 2:25 PM EDT 05/12/2023 2:25 PM EDT Alirio Hudson MD POINT OF CARE TEST ORDERABLES Performing Organization Address [facility]/NEW [facility] Co de Phone Number [facility] [place] [address] * (ABNORMAL) BLOOD GAS 2 ARTERIAL (05/12/2023 [...] Lactate WB 1.8 0.5 - 2.2 mmol/L [facility] FIO2 Art 40 % [facility] PF Ratio Art 255 [facility] Blood 05/12/2023 2:23 PM EDT 05/12/2023 2:23 PM EDT Alirio Hudson MD POINT OF CARE TEST ORDERABLES [facility] [place] [address] * (ABNORMAL) Troponin (05/12/2023 2:05 PM EDT) [...] troponin value can be found in the [facility] Laboratory Test Catalog Troponin - [facility] Laboratory Test Catalog Reference: Fourth [place] Definition of Myocardial Infarction. Journal of the [employer] 2018;72:4967-0747 Blood 05/12/2023 2:05 PM EDT 05/12/2023 2:14 PM EDT Narrative Resulting Agency Comment Spec In Lab Alirio Hudson MD CHEMISTRY ORDERABLE S [facility] [place] [address] * (ABNORMAL) Hemoglobin (05/12/2023 2:05 PM EDT) Hemoglobin 8.5(L) 11.7 - 15.5 g/dL [facility] Blood 05/12/2023 2:05 PM EDT 05/12/2023 2:14 PM EDT Narrative Resulting Agency Comment Spec In Lab Alirio Hudson MD HEMATOLOGY ORDERABL ES Performing Organization Address [facility] Co de Phone Number [facility] [place] [address] * Potassium (05/12/2023 2:05 PM EDT) Potassium [...] MD CHEMISTRY ORDERABLE S Performing Organization Address [facility] Co de Phone Number [facility] [place] [address] * (ABNORMAL) BLOOD GAS 2 ARTERIAL (05/12/2023 11:05 AM EDT) pH, Arterial 7.34(L) 7.35 - 7.45 [facility] PCO2, Arterial 42 35 - 45 mmHg [facility] PO2, Arterial 73(L) 85 - 104 mmHg [facility] Bicarbonate, Arterial 22.1 20.0 - 26.0 mmol/L [facility] Base Excess, Arterial -3.6(L) -3.0 - 3.0 mmol/L [facility] Hgb Blood Gas 9.3(L) 11.7 - 15.5 g/dL [facility] Oxyhemoglobin, Arterial 89.3(L) 94.0 - 97.0 % [facility] Carboxyhemoglob in, Arterial 0.2 % [facility] Comment: Nonsmokers: 0.5-1.5% COHB Smokers: Variable, but usually less than 10% Toxic: 20-30% COHB Lethal: Greater than 60% COHB Methemoglobin, Arterial 0.9 <=1.5 % [facility] Na Whole Blood 131(L) 135 - 145 mmol/L [facility] K Whole Blood [...] Whole Blood 96(L) 98 - 107 mmol/L [facility] Gluc Whole Bld 152 65 - 199 mg/dL [facility] Comment:Diabetes: >=200 mg/d L plus symptoms. Lactate WB 2.8(H) 0.5 - 2.2 mmol/L [facility] FIO2 Art 40 % [facility] PF Ratio Art 182 [facility] Blood 05/12/2023 11:0 5 AM EDT 05/12/2023 11:05 AM EDT Alirio Hudson MD POINT OF CARE TEST ORDERABLES [facility] [place] [address] * (ABNORMAL) BLOOD GAS 2 ARTERIAL (05/12/2023 10:14 AM EDT) pH, Arterial 7.18(Criti gabrielle) 7.35 - 7.45 [facility] Comment:Noted by musical instrument mechanic. PCO2, Arterial 45 35 - 45 mmHg [facility] PO2, Arterial 186(H) 85 - 104 mmHg [facility] Bicarbonate, Arterial 16.2(L) 20.0 - 26.0 mmol/L [facility] Base Excess, Arterial -12.2(L) -3.0 - 3.0 mmol/L [facility] Hgb Blood Gas 10.0(L) 11.7 - 15.5 g/dL [facility] Oxyhemoglobin, Arterial 97.0 94.0 - 97.0 % [facility] Carboxyhemoglob in, Arterial 0.2 % [facility] Comment: Nonsmokers: 0.5-1.5% COHB Smokers: Variable, but usually less than 10% Toxic: 20-30% COHB Lethal: Greater than 60% COHB Methemoglobin, Arterial 0.9 <=1.5 % [facility] Na Whole Blood 129(L) 135 - 145 mmol/L [facility] K Whole Blood [...] Whole Blood 97(L) 98 - 107 mmol/L [facility] Gluc Whole Bld 161 65 - 199 mg/dL [facility] Comment:Diabetes: >=200 mg/d L plus symptoms. Lactate WB 3.3(H) 0.5 - 2.2 mmol/L [facility] FIO2 Art 100 % [facility] PF Ratio Art 186 [facility] Blood 05/12/2023 10:1 4 AM EDT 05/12/2023 10:14 AM EDT Alirio Hudson MD POINT OF CARE TEST ORDERABLES Performing Organization Address City/State/[facility] Co de Phone Number [facility] [place] [address] * EKG 12 Lead (05/12/2023 10:10 AM EDT) Ventricular rate 116 BPM MUSE SYSTEM Atrial Rate 116 BPM MUSE SYSTEM P-R Interval 158 ms MUSE SYSTEM QRS Duration 114 ms MUSE SYSTEM Q-T Interval 348 ms MUSE SYSTEM QTC Calculated (Bezet) 483 ms MUSE SYSTEM Calculated P [place] 37 degrees MUSE SYSTEM Calculated R [place] 31 degrees MUSE SYSTEM Calculated T [place] -138 degrees MUSE SYSTEM INTERPRETATION Sinus tachycardia with intermittent aberrant ventricular conduction Possible Left atrial enlargement Incomplete left bundle block Left ventricular hypertrophy with repolarization abnormality ( Sokolow-Orozco , [place] product ) ST & T wave abnormality in Inferolateral leads Abnormal ECG When compared with ECG of 10-MAY-2023 13:16, ST & T wave abnormality is more pronounced in inferolateral leads I personally reviewed the tracing and edited the fellows interpretation Confirmed by fellow MD Anuja, Jim ([id number]) on 05/12/2023 1:04:20 PM Confirmed by MD Mono, Eleni ([id number]) on 05/12/2023 9:28:34 PM MUSE SYSTEM 05/12/2023 [...] questions please contact the health critical care registered nurse that requested your imaging first. ? Electronically signed by: Chyna Johnson MD, [facility] ??([phone]), at 05/12/2023 10:08 AM Narrative 05/12/2023 10:08 AM EDT EXAMINATION: XR CHEST ONE VIEW CLINICAL HISTORY: Post TAVR TECHNIQUE: 1 view of the chest COMPARISON: Chest radiograph from earlier today FINDINGS: Interval placement of endotracheal tube with tip terminating 2 cm above the shira. Interval placement of enteric tube projecting along the expected course of the esophagus and outside the snwms-hs-bvks. Interval retraction of right IJ approach pulmonary [...] expected course ofthe esophagus and outside the bubpr-lj-bfyp. Interval retraction of right IJ approach pulmonary [...] have questions please contactthe health critical care registered nurse that requested your imaging first. Electronically signed by: Chyna Johnson MD, [facility]([phone]), at 05/12/2023 10:08 AM Alirio Hudson MD [...] 1955 ? Height: 154 cm ? Account: [id number] Age: 67 yrs ? Weight: 75 kg Gender: Female ?BSA: 1.7 m2 Ordering Physician: RADHA HOLLINS Referring Physician: RADHA HOLLINS Performed By: Dilma Bee RDCS Reason For Study: Guidance for TAVR procedure Exam Location: [facility]. Interpretation Summary PRE TAVR: There is [...] mL/m2. POST TAVR: Normal function of the ienek-qu-otrej prosthesis. See below for hemodynamic parameters. Slight improvement in left and right ventricular systolic function. LVEF now 20-25%. No pericardial effusion. See report for additional findings. Procedure Limited - 84734. Doppler - 38173. Color Doppler - 37143. Left Ventricle Left ventricle is of normal [...] Date: 307:33 AMBP: 96/63 mmHg Patient Location: [address] : 1955 Height: 154 cm Account: [id number] Age: 67 yrs Weight: 75 kg Gender: Female BSA: 1.7 m2 Ordering Physician: RADHA HOLLINS Referring Physician: RADHA HOLLINS Performed By: Dilma Bee RDCS Reason For Study: Guidance for TAVR procedure Exam Location: [facility]. Interpretation Summary PRE TAVR: There is [...] 28mL/m2. POST TAVR: Normal function of the eeehp-uc-xmghs prosthesis. See belowfor hemodynamic parameters. Slight improvement in left and right ventricularsystolic function. LVEF now 20-25%. No pericardial effusion. See report for additional findings. Procedure Limited - 23843. Doppler - 39918. Color Doppler - 59995. Left Ventricle Left ventricle is of normal [...] Modality Other Narrative 05/12/2023 2:37 PM EDT ?[facility] ? Cardiac Catheterization/Intervention Report ? Patient Name: Kirstie, Purnima M. ? Procedure Date: 05/12/2023 ? A #: [id number] ? Primary Physician: Antelmo Sharma ? Case #: [id number] ? File Name: [id number] ? Catheterization Order Number: [id number] ? [facility] ? Final Report [place], [place] ? Patient Name: ? Purnima Thacker ? ID#: ?[id number] ? : ?1955 ? Procedure Date: ? May 12, 2023 ? Case #: ? [id number] ? Room: ? 6 ? Case Physicians: ?Antelmo Sharma M.D. ?Start: ?08:03 ?Alirio Hudson M.D. ?Admission: ??05/08/2023 ?Lynda Mcgowan M.D. ? Discharge: ??05/22/2023 ?Fellow: ? Kristied Adair Tejeda ? Referring Physician: ??Mario Alberto Chin M.D. ? Procedures: ?* Coronary Angiography ?* Left Heart Catheterization ?* Coronary Stent Insertion ?* Transcatheter Aortic Valve Replacement ?* Vascular Closure Device Deployment ?* Temporary Pacemaker Insertion In Dispensing Lead ?* Endotracheal Intubation By Non-Cath Physician ?* [...] was designated as ASA Class IV. The [facility] clinical ?frailty scale is 4: Vulnerable. [...] ??A premounted 4.00 x 30 mm [place] (MINNA) was ? deployed with a maximum [...] calculated STS risk score was 30.1%. A ivhtm-hx-jidxt ?procedure was performed on the pre-existing bioprosthetic stented ?prosthesis. The priority of the rptdl-qm-sxnmn procedure was Elective. ?The procedure was performed [...] Lai 3 Ultra RESILIA 23 mm THV (s/m=[id number]) transcatheter ?valve was inserted using standard technique. [...] to nor was it given in the ?lab head. ?Recommended anti-platelet/anti-thrombotic regimen: ?Continue aspirin 81 mg [...] regimen. ? Comments: ?Successful right transfemoral TAVR Uheyi-ky-Achze with a 23 mm Lai 3 ?THV. [...] insertion-coronary, access site angiography, ?temporary pacemaker in lab head, intubation-non cath physician, vascular ?closure device, transthoracic echo ??and TAVR. Dr. Alirio Hudson M.D. ?performed the left heart catheterization, access site angiography, ?temporary pacemaker in lab head, vascular closure device, transthoracic ?echo , TAVR and CPR during cath. Dr. Lynda Mcgowan M.D. performed the ABG, ?anesthesia and intubation-non cath physician. ? Antelmo Sharma M.D. ? Electronically Signed by: Antelmo Sharma M.D. ? Report Finalized: 05/12/2023 ??14:31 ? Report Last Ammended: 07/01/2023 ??11:30 ? Procedure Note Antelmo Sharma MD - 07/01/2023 [facility] Cardiac Catheterization/Intervention Report Patient Name: Purnima Thacker Procedure Date: 05/12/2023 A #: [id number] Primary Physician: Antelmo Sharma Case #: [id number] File Name: [id number] Catheterization Order Number: [id number] [facility] FinalReport [place], [place] Patient Name: Purnima Thacker ID#:[id number] :1955 Procedure Date: May 12, 2023 Case #: [id number] Room: 6 Case Physicians: Antelmo Sharma M.D. Start: 08:03 Alirio Hudson M.D. Admission:05/08/2023 Lynda Mcgowan M.D. Discharge:05/22/2023 Fellow: Rebekah Tejeda M.D. Referring Physician: Mario Alberto Chin M.D. Procedures: * Coronary Angiography * Left Heart Catheterization * Coronary Stent Insertion * Transcatheter Aortic Valve Replacement * Vascular Closure Device Deployment * Temporary Pacemaker Insertion In Dispensing Lead * Endotracheal Intubation By Non-Cath Physician * [...] guide. A premounted 4.00 x 30 mm [place] (MINNA) was deployed with a maximum inflation [...] calculated STS risk score was 30.1%. A rdmbu-hw-scvou procedure was performed on the pre-existing bioprosthetic stented prosthesis. The priority of the hluce-eh-fcmle procedure wasElective. The procedure was performed under Moderate sedation performed byLynda Mcgowan M.D. (see anesthesia report for additional details). Alirio Hudson M.D. participated in the case (see Cardiac Surgery reportfor additional details). The TAVR sheath was a 14 Fr Corona eSheath Introducer and theaccess site was femoral. Rapid ventricular pacing was performed. An Corona Lai 3 Ultra RESILIA 23 mm THV (s/y=[id number])transcatheter valve was inserted using standard technique. The [...] prior to nor was it given inthe lab head. Recommended anti-platelet/anti-thrombotic regimen: Continue aspirin 81 mg [...] this regimen. Comments: Successful right transfemoral TAVR Tjxtc-yw-Mneuk with a 23 mmSapien 3 THV. We [...] insertion-coronary, access site angiography, temporary pacemaker in lab head, intubation-non cath physician,vascular closure device, transthoracic echo and TAVR. Dr. Alirio Hudson M.D. performed the left heart catheterization, access site angiography, temporary pacemaker in lab head, vascular closure device,transthoracic echo , TAVR and [...] pCO2, POC 42 35 - 45 mmHg [facility] pO2, POC 260(H) 85 - 104 mmHg [facility] Base Excess, POC -11.0(L) -3.0 - 3.0 mmol/L [facility] Bicarbonate, POC 16.7(L) 20.0 - 26.0 mmol/L [facility] Sodium, POC 129(L) 135 - 145 mmol/L [facility] POC Potassium 3.8 3.5 - 5.0 mmol/L [facility] Ionized Calcium, POC 1.12(L) 1.15 - 1.33 mmol/L [facility] POC Hematocrit 23.0(L) 34.0 - 45.0 % [facility] POC Calc Hgb 7.8(L) 11.2 - 15.7 g/dL [facility] Comment:The calculation of h emoglobin from hematocrit assumes a normal MCHC. POC Bgas Loc CC Lab [facility] Blood 05/12/2023 8:50 AM EDT 05/13/2023 12:00 PM EDT Alirio Hudson MD CHEMISTRY ORDERABLE S [facility] [place] [address] * (ABNORMAL) Point of Care Blood Gas Historical (05/12/2023 8:10 AM EDT) pH, POC 7.27(Crit ical) 7.35 - 7.45 [facility] Comment:Critical value OK, C C Lab. pCO2, POC 37 35 - 45 mmHg [facility] pO2, POC 29(Critic al) 85 - 104 mmHg [facility] Comment:Critical value OK, C C Lab. Base Excess, POC -10.0(L) -3.0 - 3.0 mmol/L [facility] Bicarbonate, POC 16.7(L) 20.0 - 26.0 mmol/L [facility] Sodium, POC 123(L) 135 - 145 mmol/L [facility] POC Potassium 4.0 3.5 - 5.0 mmol/L [facility] Ionized Calcium, POC 1.12(L) 1.15 - 1.33 mmol/L [facility] POC Hematocrit 27.0(L) 34.0 - 45.0 % [facility] POC Calc Hgb 9.2(L) 11.2 - 15.7 g/dL [facility] Comment:The calculation of h emoglobin from hematocrit assumes a normal MCHC. POC Bgas Loc CC Lab [facility] Blood 05/12/2023 8:10 AM EDT 05/13/2023 12:00 PM EDT Alirio Hudson MD CHEMISTRY ORDERABLE S [facility] [place] [address] * (ABNORMAL) Lactate, whole blood, send to lab ([facility] (05/12/2023 7:00 AM EDT) Lactate WB 2.4(H) 0.5 - 2.2 mmol/L [facility] Blood 05/12/2023 7:00 AM EDT 05/12/2023 7:09 AM EDT Narrative Resulting Agency Comment Spec In Lab Radha Hollins MD CHEMISTRY ORDERABL ES Performing Organization Address City/[facility]/ZIP Co de Phone Number [facility] [place] [address] * (ABNORMAL) Comprehensive metabolic panel (non-fasting) (05/12/2023 6:00 AM EDT) Glucose 167 65 - 199 mg/dL [facility] Comment:Diabetes: >=200 mg/d L plus symptoms Blood Urea Nitrogen 67(H) 8 - 18 mg/dL [facility] Creatinine 2.01(H) 0.70 - 1.20 mg/dL [facility] Sodium 131(L) 135 [...] mg/dL [facility] Protein, Total 6.3 6.1 - 8.0 g/dL [facility] Albumin 3.5 3.2 - 5.2 [...] [place] Co de Phone Number [facility] [place] [address] * (ABNORMAL) Coox2 (05/12/2023 5:08 AM EDT) pO2, Coox 24 mmHg [facility] Hgb Blood Gas 10.4(L) 11.7 - 15.5 g/dL [facility] Oxyhemoglobin, Coox 30.7 % [facility] Carboxyhemoglo bin, Coox 0.3 % [facility] Comment: Nonsmokers: 0.5-1.5% COHB Smokers: Variable, but usually less than 10% Toxic: 20-30% COHB Lethal: Greater than 60% COHB Methemoglobin, Coox 0.8 <=1.5 % [facility] Source Coox Mixed Venous [facility] Blood 05/12/2023 5:08 AM EDT 05/12/2023 5:08 AM EDT Radha Hollins MD POINT OF CARE TEST ORDERABLES Performing Organization Address [facility] Co de Phone Number [facility] [place] [address] * (ABNORMAL) Coox2 (05/12/2023 3:21 AM EDT) pO2, Coox 25 mmHg [facility] Hgb Blood Gas 10.8(L) 11.7 - 15.5 g/dL [facility] Oxyhemoglobin, Coox 32.7 % [facility] Carboxyhemoglo bin, Coox 0.3 % [facility] Comment: Nonsmokers: 0.5-1.5% COHB Smokers: Variable, but usually less than 10% Toxic: 20-30% COHB Lethal: Greater than 60% COHB Methemoglobin, Coox 0.7 <=1.5 % [facility] Source Coox Mixed Venous [facility] Blood 05/12/2023 3:21 AM EDT 05/12/2023 3:21 AM EDT Radha Hollins MD POINT OF CARE TEST ORDERABLES Performing Organization Address [facility] de Phone Number [facility] [place] [address] * (ABNORMAL) BLOOD GAS 2 ARTERIAL (05/12/2023 [...] 60% COHB Methemoglobin, Arterial 0.7 <=1.5 % [facility] Na Whole Blood 131(L) 135 - 145 mmol/L [facility] K Whole Blood [...] [facility] Flow Art 5.0 LPM [facility] Blood 05/12/2023 3:18 AM EDT 05/12/2023 3:18 AM EDT Radha Hollins MD POINT OF CARE TEST ORDERABLES Performing Organization Address City/State/[facility] Co de Phone Number [facility] [place] [address] * (ABNORMAL) Coox2 (05/12/2023 1:14 AM EDT) pO2, Coox 28 mmHg [facility] Hgb Blood Gas 10.9(L) 11.7 - 15.5 g/dL [facility] Oxyhemoglobin, Coox 37.3 % [facility] Carboxyhemoglo bin, Coox 0.3 % [facility] Comment: Nonsmokers: 0.5-1.5% COHB Smokers: Variable, but usually less than 10% Toxic: 20-30% COHB Lethal: Greater than 60% COHB Methemoglobin, Coox 0.5 <=1.5 % [facility] Source Coox Mixed Venous [facility] Blood 05/12/2023 1:14 AM EDT 05/12/2023 1:14 AM EDT Radha Hollins MD POINT OF CARE TEST ORDERABLES [facility] [place] [address] * (ABNORMAL) BLOOD GAS 2 ARTERIAL (05/12/2023 [...] 60% COHB Methemoglobin, Arterial 0.6 <=1.5 % [facility] Na Whole Blood 131(L) 135 - 145 mmol/L [facility] K Whole Blood [...] Whole Blood 99 98 - 107 mmol/L [facility] Gluc Whole Bld 132 65 - 199 mg/dL [facility] Comment:Diabetes: >=200 mg/d L plus symptoms. Lactate WB 2.7(H) 0.5 - 2.2 mmol/L [facility] Flow Art 5.0 LPM [facility] Blood 05/12/2023 1:06 AM EDT 05/12/2023 1:06 AM EDT Radha Hollins MD POINT OF CARE TEST ORDERABLES [facility] [place] [address] * (ABNORMAL) Differential, Automated (05/12/2023 1:05 AM EDT) Neutrophil % 83.3 % [facility] Neutrophil Absolute 7.49(H) 1.70 - 6.10 x10(3)/mc L [facility] Lymph % 7.1 % [facility] Lymphocytes Abs 0.6(L) 0.9 - 3.2 x10(3)/mc L [facility] Monocyte % 8.9 % [facility] Monocyte Abs 0.8 0.3 - 0.9 x10(3)/mc L [facility] Eos % 0.0 % [facility] Eosinophils Abs 0.0 0.0 - 0.4 x10(3)/mc L [facility] Basophil % 0.1 % [facility] Baso Absolute 0.0 0.0 [...] HEMATOLOGY ORDERABLE S [facility] [place] [address] * (ABNORMAL) Hemogram (05/12/2023 1:05 AM EDT) [...] Platelet Volume 10.3 7.6 - 12.9 fL [facility] NRBC% auto 0.0 % [facility] NRBC Absolute 0.000 0.000 - 0.000 x10(3)/ L [facility] Blood 05/12/2023 1:05 AM EDT 05/12/2023 1:15 AM EDT Narrative Resulting Agency Comment Spec In Lab Gianni Fletcher MD HEMATOLOGY ORDERABLE S [facility] [place] [address] * (ABNORMAL) Comprehensive metabolic panel (non-fasting) (05/12/2023 [...] CHEMISTRY ORDERABL ES [facility] [place] [address] * XR Chest One View (05/12/2023 1:00 [...] questions please contact the health critical care registered nurse that requested your imaging first. ? [...] have questions please contactthe health critical care registered nurse that requested your imaging first. Radha Hollins MD IMG DX ORDERABLES * (ABNORMAL) Coox2 (05/12/2023 12:30 AM EDT) pO2, Coox 22 mmHg [facility] Hgb Blood Gas 10.9(L) 11.7 - 15.5 g/dL [facility] Oxyhemoglobin, Coox 25.1 % [facility] Carboxyhemoglo bin, Coox 0.3 % [facility] Comment: Nonsmokers: 0.5-1.5% COHB Smokers: Variable, but usually less than 10% Toxic: 20-30% COHB Lethal: Greater than 60% COHB Methemoglobin, Coox 1.4 <=1.5 % [facility] Source Coox Mixed Venous [facility] Blood 05/12/2023 12:3 0 AM EDT 05/12/2023 12:30 AM EDT Radha Hollins MD POINT OF CARE TEST ORDERABLES [facility] [place] [address] * XR Chest One View (05/11/2023 11:45 [...] questions please contact the health critical care registered nurse that requested your imaging first. ? [...] have questions please contactthe health critical care registered nurse that requested your imaging first. Electronically signed by: Will Rowe MD, [facility]([phone]), at 05/11/2023 11:57 PM Radha Hollins MD IMG DX ORDERABLES * (ABNORMAL) Lactate, whole blood, send to lab ([facility] (05/11/2023 7:40 PM EDT) Lactate WB 4.8(Critic al) 0.5 - 2.2 mmol/L [facility] Comment:Called by: NIKI, Read back by: Magdalena Baires, Date/Time:05/11/23 19:54. Blood 05/11/2023 7:40 PM EDT 05/11/2023 7:49 PM EDT Narrative Resulting Agency Comment Spec In Lab Radha Hollins MD CHEMISTRY ORDERABL ES Performing Organization Address [facility] Co de Phone Number [facility] [place] [address] * Urine culture (05/11/2023 7:22 PM EDT) [...] RAL ORDERABLES Performing Organization Address [facility] de Phone Number [facility] [place] [address] * (ABNORMAL) Urinalysis Microscopic Exam (05/11/2023 7:22 [...] Kaplan APRN URINE ORDERABLES Performing Organization Address [facility] [facility] Co de Phone Number [facility] [place] [address] * (ABNORMAL) Urinalysis with reflex Culture (05/11/2023 [...] Cloudy(A) Clear [facility] Specific Ovid Urine Automated >=1.030(A) 1.005 - 1.030 [facility] Color, Urine Dipstick Yellow Yellow [facility] Reflex to Culture Yes [facility] Clean Catch Urine 05/11/2023 7:22 PM EDT 05/11/2023 7:31 PM EDT Narrative Resulting Agency Comment Spec In Lab Brody Kaplan APRN URINE ORDERABLES Performing Organization Address [facility] Co de Phone Number [facility] [place] [address] * (ABNORMAL) pro-Brain Natriuretic Peptide (05/11/2023 7:11 PM EDT) NT-proBNP >35,000(H) <=124 pg/mL [facility] Blood 05/11/2023 7:11 PM EDT 05/11/2023 7:26 PM EDT Narrative Resulting Agency Comment Spec In Lab Radha Hollins MD CHEMISTRY ORDERABL ES Performing Organization Address City/[facility] Co de Phone Number [facility] [place] [address] * (ABNORMAL) Lactate, whole blood, [place] lab [place] (05/11/2023 2:47 PM EDT) Lactate WB 2.9(H) 0.5 - 2.2 mmol/L [facility] Blood 05/11/2023 2:47 PM EDT 05/11/2023 2:53 PM EDT Narrative Resulting Agency Comment Spec In Lab Juan Luis Gonzalez MD CHEMISTRY ORDERABLES Performing Organization Address City/State/[facility] Co de Phone Number [facility] [place] [address] * (ABNORMAL) CT Angiogram Abdomen & Pelvis [...] questions please contact the health critical care registered nurse that requested your imaging first. ? [...] questions please contact the health critical care registered nurse that requested your imaging first. ? Electronically signed by: Cullen Narayanan MD, [facility] ([phone]), at 05/11/2023 4:37 PM Narrative 05/11/2023 4:37 [...] 610 mm2 Circumference: 88 mm Calcification: Mild Dtvbzje-ri-keiweboo height: Left: 6.2 mm Right: 5.8 mm THORACIC AORTA Description: Normal course and caliber. ??Mild diffuse atherosclerotic changes. No acute aortopathy noted. Laborer Driver dimensions: Aortic root: 27.6 mm Max ascending aorta: 30.5 mm x 27.7 mm Suggested fluoroscopic angulation based on line extending through the nadirs of the three sinuses of Valsalva, set equidistant: ?? SYRIAC ??9 degrees; cranial 7 degrees MITRAL: Mitral [...] 610 mm2 Circumference: 88 mm Calcification: Mild Srarhet-ma-ifhqkyeh height: Left: 6.2 mm Right: 5.8 mm THORACIC AORTA Description: Normal course and caliber. Mild diffuse atheroscleroticchanges. No acute aortopathy noted. Laborer Driver dimensions: Aortic root: 27.6 mm Max ascending aorta: 30.5 mm x 27.7 mm Suggested fluoroscopic angulation based on line extending through thenadirs of the three sinuses of Valsalva, set equidistant: SYRIAC 9 degrees; cranial 7 degrees MITRAL: Mitral [...] have questions please contactthe health critical care registered nurse that requested your imaging first. Electronically signed by: Cullen Narayanan MD, [facility]([phone]), at 05/11/2023 4:37 PM Antelmo Sharma MD IMG CT ORDERABLES * (ABNORMAL) Lactate, whole blood, send to lab [place] (05/11/2023 9:29 AM EDT) Lactate WB 3.1(H) 0.5 - 2.2 mmol/L [facility] Blood 05/11/2023 9:29 AM EDT 05/11/2023 9:38 AM EDT Narrative Resulting Agency Comment Spec In Lab Juan Luis Gonzalez MD CHEMISTRY ORDERABLES [facility] [place] [address] * (ABNORMAL) Differential, Automated (05/11/2023 4:42 AM EDT) Neutrophil % 78.1 % [facility] Neutrophil Absolute 5.46 1.70 - 6.10 x10(3)/mc L [facility] Lymph % 10.6 % [facility] Lymphocytes Abs 0.7(L) 0.9 - 3.2 x10(3)/mc L [facility] Monocyte % 9.6 % [facility] Monocyte Abs 0.7 0.3 - 0.9 x10(3)/mc L [facility] Eos % 0.0 % [facility] Eosinophils Abs 0.0 0.0 - 0.4 x10(3)/mc L [facility] Basophil % 0.4 % [facility] Baso Absolute 0.0 0.0 [...] HEMATOLOGY OR DERABLES [facility] [place] [address] * (ABNORMAL) Hemogram (05/11/2023 4:42 AM EDT) White Blood Cell 7.0 4.0 - 9.5 x10(3)/mc L [facility] Red Blood Cell 3.44(L) 4.00 - 5.21 x10(6)/mc L [facility] Hemoglobin 11.1(L) 11.7 - 15.5 [...] Platelet Volume 10.1 7.6 - 12.9 fL [facility] NRBC% auto 0.0 % [facility] NRBC Absolute 0.000 0.000 - 0.000 x10(3)/mc L [facility] Blood 05/11/2023 4:42 AM EDT 05/11/2023 4:49 AM EDT Narrative Resulting Agency Comment Spec In Lab Klaudia Reid MD HEMATOLOGY OR DERABLES Performing Organization Address [facility] Co de Phone Number [facility] [place] [address] * Heparin (unfractionated) Level (05/11/2023 4:42 AM EDT) UF Heparin 0.46 IU/mL [facility] Comment: Heparin [...] LES Performing Organization Address [facility] Co de Phone Number [facility] [place] [address] * (ABNORMAL) Comprehensive metabolic panel (non-fasting) (05/11/2023 4:42 AM EDT) Pathologist [facility] Glucose 143 65 - 199 mg/dL [facility] Comment:Diabetes: >=200 mg/d L plus symptoms Blood Urea Nitrogen 42(H) 8 - 18 mg/dL [facility] Creatinine 1.24(H) 0.70 - 1.20 mg/dL [facility] Sodium 134(L) 135 - 145 mmol/L [facility] Potassium 4.6 3.5 [...] unit/L [facility] Comment:result rechecked-ssc Alkaline Phosphatase 72 [...] CHEMISTRY ORDERABL ES [facility] [place] [address] * EKG 12 Lead (05/10/2023 1:16 PM EDT) Ventricular rate 118 BPM MUSE SYSTEM Atrial Rate 118 BPM MUSE SYSTEM P-R Interval 152 ms MUSE SYSTEM QRS Duration 104 ms MUSE SYSTEM Q-T Interval 316 ms MUSE SYSTEM QTC Calculated (Bezet) 442 ms MUSE SYSTEM Calculated P [place] 29 degrees MUSE SYSTEM Calculated R Kent 18 degrees MUSE SYSTEM Calculated T [place] -173 degrees MUSE SYSTEM INTERPRETATION Sinus tachycardia Minimal voltage criteria for LVH, may be normal variant ( [place] product ) Septal infarct , age undetermined ST & T wave abnormality, consider lateral ischemia Abnormal ECG When compared with ECG of 10-MAY-2023 07:59, Fusion complexes are no longer Present Premature ventricular complexes are no longer Present ST no longer depressed in Anterior leads Confirmed by MD Villareal Danette ([id number]) on 05/10/2023 8:47:46 PM MUSE SYSTEM 05/10/2023 1:16 PM EDT 05/10/2023 8:47 PM EDT Juan Luis Gonzalez MD ECG ORDERABLES MUSE SYSTEM * Lactate, whole blood, send to lab ([facility] (05/10/2023 11:52 AM EDT) Lactate WB 1.8 0.5 - 2.2 mmol/L [facility] Blood 05/10/2023 11:5 2 AM EDT 05/10/2023 12:13 PM EDT Narrative Resulting Agency Comment Spec In Lab Juan Luis Gonzalez MD CHEMISTRY ORDERABLES [facility] [place] [address] * XR Chest One View (05/10/2023 11:16 [...] questions please contact the health critical care registered nurse that requested your imaging first. ? Electronically signed by: ALIX RUVALCABA MD, [facility] ([phone]), at 05/10/2023 1:25 PM Narrative 05/10/2023 1:25 [...] have questions please contactthe health critical care registered nurse that requested your imaging first. Electronically signed by: ALIX RUVALCABA MD, [facility]([phone]), at 05/10/2023 1:25 PM Juan Luis Gonzalez MD IMG DX ORDERABLES * EKG 12 Lead (05/10/2023 7:59 AM EDT) Ventricular rate 115 BPM MUSE SYSTEM Atrial Rate 115 BPM MUSE SYSTEM P-R Interval 142 ms MUSE SYSTEM QRS Duration 102 ms MUSE SYSTEM Q-T Interval 322 ms MUSE SYSTEM QTC Calculated (Bezet) 445 ms MUSE SYSTEM Calculated P [place] 36 degrees MUSE SYSTEM Calculated R [place] 28 degrees MUSE SYSTEM Calculated T [place] -119 degrees MUSE SYSTEM INTERPRETATION Sinus tachycardia [...] Differential, Automated (05/10/2023 2:28 AM EDT) Pathologist [facility] Neutrophil % 77.1 % [facility] Neutrophil Absolute 4.01 1.70 - 6.10 x10(3)/mc L [facility] Lymph % 14.0 % [facility] Lymphocytes Abs 0.7(L) 0.9 - 3.2 x10(3)/mc L [facility] Monocyte % 7.7 % [facility] Monocyte Abs 0.4 0.3 - 0.9 x10(3)/mc L [facility] Eos % 0.4 % [facility] Eosinophils Abs 0.0 0.0 - 0.4 x10(3)/mc L [facility] Basophil % 0.4 % [facility] Baso Absolute 0.0 0.0 [...] Absolute 0.02 0.00 - 0.04 x10(3)/mc L [facility] Blood 05/10/2023 2:28 AM EDT 05/10/2023 2:57 AM EDT Narrative Resulting Agency Comment Spec In Lab Klaudia Reid MD HEMATOLOGY OR DERABLES [facility] [place] [address] * (ABNORMAL) Hemogram (05/10/2023 2:28 AM EDT) White Blood Cell 5.2 4.0 - 9.5 x10(3)/mc L [facility] Red Blood Cell 3.11(L) 4.00 - 5.21 x10(6)/mc L [facility] [...] [facility] RDW Standard Deviation 44.9 37.0 - 46.0 fL [facility] RDW coefficient of variation 12.8 11.5 - 14.1 % [facility] Mean Platelet Volume 9.8 7.6 - 12.9 fL [facility] NRBC% auto 0.0 % [facility] NRBC Absolute 0.000 0.000 - 0.000 x10(3)/mc L [facility] Blood 05/10/2023 2:28 AM EDT 05/10/2023 2:57 AM EDT Narrative Resulting Agency Comment Spec In Lab Klaudia Reid MD HEMATOLOGY OR DERABLES [facility] [place] [address] * (ABNORMAL) Comprehensive metabolic panel (non-fasting) (05/10/2023 [...] ES Performing Organization Address [facility] [place] [address] * Heparin (unfractionated) Level (05/10/2023 2:28 AM EDT) UF Heparin 0.37 IU/mL [facility] Comment: Heparin [...] LES Performing Organization Address [facility]/ZIP Co de Phone Number [facility] [place] [address] * (ABNORMAL) Differential, Automated (05/09/2023 4:00 AM EDT) Neutrophil % 81.7 % [facility] Neutrophil Absolute 5.26 1.70 - 6.10 x10(3)/mc L [facility] Lymph % 10.7 % [facility] Lymphocytes Abs 0.7(L) 0.9 - 3.2 x10(3)/mc L [facility] Monocyte % 6.5 % [facility] Monocyte Abs 0.4 0.3 - 0.9 x10(3)/ L [facility] Eos % 0.5 % [facility] Eosinophils Abs 0.0 0.0 - 0.4 x10(3)/mc L [facility] Basophil % 0.3 % [facility] Baso Absolute 0.0 0.0 - 0.1 x10(3)/ L [facility] Immature Gran % 0.30 % [facility] [place] Co de Phone Number [facility] [place] [address] * (ABNORMAL) Hemogram (05/09/2023 4:00 AM EDT) White Blood Cell 6.4 4.0 - 9.5 x10(3)/mc L [facility] Red Blood Cell 3.15(L) 4.00 - 5.21 x10(6)/mc L [facility] Hemoglobin 10.2(L) 11.7 - 15.5 g/dL [facility] Hematocrit 30.3(L) 35.7 - 45.8 % [facility] Mean Cell Volume 96.2(H) 82.6 - 94.4 fL [facility] Mean Cell Hemoglobin 32.4(H) 27.1 - 32.0 pg [facility] Mean Cell Hemoglobin Concentration 33.7 31.7 - 35.0 g/dL [facility] Platelet 151 145 - 357 x10(3)/mc L [facility] RDW Standard Deviation 44.7 37.0 - 46.0 fL [facility] RDW coefficient of variation 12.8 11.5 - 14.1 % [facility] Mean Platelet Volume 9.4 7.6 - 12.9 fL [facility] NRBC% auto 0.0 % [facility] NRBC Absolute 0.000 0.000 - 0.000 x10(3)/mc L [facility] Blood 05/09/2023 4:00 AM EDT 05/09/2023 4:19 AM EDT Narrative Resulting Agency Comment Spec In Lab Klaudia Reid MD HEMATOLOGY OR DERABLES [facility] [place] [address] * Heparin (unfractionated) Level (05/09/2023 4:00 AM EDT) UF Heparin 0.47 IU/mL [facility] Comment: Heparin (anti-Xa) levels [...] HEMATOLOGY ORDERAB LES [facility] [place] [address] * (ABNORMAL) Comprehensive metabolic panel (non-fasting) (05/09/2023 [...] ES Performing Organization Address [facility]/ZIP Co de Phone Number [facility] [place] [address] * (ABNORMAL) pro-Brain Natriuretic Peptide (05/08/2023 4:00 PM EDT) NT-proBNP 25,503(H) <=124 pg/mL [facility] Blood Venous Draw / Unknown 05/08/2023 4:00 PM EDT 05/08/2023 4:25 PM EDT Narrative Resulting Agency Comment Spec In Lab Juan Luis Gonzalez MD CHEMISTRY ORDERABLES Performing Organization Address [facility] Co de Phone Number [facility] [place] [address] * Magnesium (05/08/2023 4:00 PM EDT) Magnesium 0.82 0.69 - 1.07 mmol/L [facility] Blood 05/08/2023 4:00 PM EDT 05/08/2023 4:06 PM EDT Narrative Resulting Agency Comment Spec In Lab Enrique Chua MD CHEMISTRY ORDERABLES Performing Organization Address [facility] Co de Phone Number [facility] [place] [address] * Potassium (05/08/2023 4:00 PM EDT) Potassium [...] MD CHEMISTRY ORDERABL ES Performing Organization Address [facility] de Phone Number [facility] [place] [address] * Heparin (unfractionated) Level (05/08/2023 4:00 PM EDT) Pathologist [facility] UF Heparin 0.43 IU/mL [facility] Comment: Heparin [...] ORDERAB LES Performing Organization Address [facility] Co de Phone Number [facility] [place] [address] * EKG 12 Lead (05/08/2023 3:51 PM EDT) Ventricular rate 98 BPM MUSE SYSTEM Atrial Rate 98 BPM MUSE SYSTEM P-R Interval 150 ms MUSE SYSTEM QRS Duration 102 ms MUSE SYSTEM Q-T Interval 358 ms MUSE SYSTEM QTC Calculated (Bezet) 457 ms MUSE SYSTEM Calculated P Kent 38 degrees MUSE SYSTEM Calculated R Kent 48 degrees MUSE SYSTEM Calculated T [place] -112 degrees MUSE SYSTEM INTERPRETATION Sinus rhythm with frequent and consecutive Premature ventricular and fusion complexes Septal infarct , age undetermined ST & T wave abnormality, consider anterolateral ischemia Abnormal ECG When compared with ECG of 09-NOV-2022 11:17, T wave inversion now evident in Anterolateral leads Confirmed by MD Harshil, Enrique Bell ([id number]) on 05/10/2023 8:11:46 AM MUSE SYSTEM 05/08/2023 3:51 PM EDT 05/10/2023 8:11 AM EDT Radha Hollins MD ECG ORDERABLES MUSE SYSTEM * (ABNORMAL) Differential, Automated (05/08/2023 11:38 AM EDT) Neutrophil % 71.3 % [facility] Neutrophil Absolute 2.91 1.70 - 6.10 x10(3)/mc L [facility] Lymph % 19.1 % [facility] Lymphocytes Abs 0.8(L) 0.9 - 3.2 x10(3)/mc L [facility] Monocyte % 9.0 % [facility] Monocyte Abs 0.4 0.3 - 0.9 x10(3)/mc L [facility] Eos % 0.2 % [facility] Eosinophils Abs 0.0 0.0 - 0.4 x10(3)/mc L [facility] Basophil % 0.2 % [facility] Baso Absolute 0.0 0.0 [...] HEMATOLOGY ORDERA BLES [facility] [place] [address] * (ABNORMAL) Hemogram (05/08/2023 11:38 AM EDT) [facility] NRBC% auto 0.0 % [facility] NRBC Absolute 0.000 0.000 - 0.000 x10(3)/ L [facility] Blood 05/08/2023 11:3 8 AM EDT 05/08/2023 11:44 AM EDT Narrative Resulting Agency Comment Spec In Lab Lincoln Sal MD HEMATOLOGY ORDERA BLES [facility] [place] [address] * TSH (05/08/2023 11:38 AM EDT) Thyroid Stimulating Hormone 1.27 0.27 - 4.20 mcIU/mL [facility] Comment: Reference Interval (mcIU/mL): Females: ??First Trimester: 0.23-3.88 ??Second Trimester: 0.22-3.90 ??Third Trimester: 0.44-4.66 Blood 05/08/2023 11:3 8 AM EDT 05/08/2023 11:44 AM EDT Narrative Resulting Agency Comment Spec In Lab Enrique Chua MD CHEMISTRY ORDERABLES Performing Organization Address City/[facility]/ZIP Co de Phone Number [facility] [place] [address] * (ABNORMAL) Phosphorus (05/08/2023 11:38 AM EDT) Phosphorus 4.7(H) 2.5 - 4.5 mg/dL [facility] Blood 05/08/2023 11:3 8 AM EDT 05/08/2023 11:44 AM EDT Narrative Resulting Agency Comment Spec In Lab Enrique Chua MD CHEMISTRY ORDERABLES Performing Organization Address [facility] Co de Phone Number [facility] [place] [address] * Magnesium (05/08/2023 11:38 AM EDT) Magnesium 0.76 0.69 - 1.07 mmol/L [facility] Blood 05/08/2023 11:3 8 AM EDT 05/08/2023 11:44 AM EDT Narrative Resulting Agency Comment Spec In Lab Enrique Chua MD CHEMISTRY ORDERABLES Performing Organization Address [facility] Co de Phone Number [facility] [place] [address] * (ABNORMAL) Basic Metabolic Panel (non-fasting) (05/08/2023 11:38 AM EDT) Glucose 97 65 - 199 mg/dL [facility] Comment:Diabetes: >=200 mg/d [...] In Lab Enrique Chua MD CHEMISTRY ORDERABLES [facility] [place] [address] * ECHO COMPLETE (05/08/2023 11:02 AM EDT) Pathologist [facility] EF 25 HEARTHittite Microwave SYSTEM Anatomical Region Laterality Modality Cardiac Other 05/08/2023 10:0 3 AM EDT Narrative 05/08/2023 11:51 AM EDT ? Echocardiogram Report Name: PURNIMA THACKER ?Study Date: 05/08/2023 10:03 AMBP: 92/64 mmHg ? Patient Location: [facility]^CV29^A : 1955 ? Height: 155 cm ? Account: [id number] Age: 67 yrs ? Weight: 78 kg Gender: Female ?BSA: 1.8 m2 Ordering Physician: ENRIQUE CHUA Referring Physician: MARIO ALBERTO CHIN Performed By: CHUCKIE Canchola Reason For Study: SAVR Stenosis Exam Location: [facility]. Interpretation Summary -Left ventricle is severely [...] worsening stenosis. Mitral regurgitation is similar. Procedure Complete-[id number]. Satisfactory quality. There is normal sinus rhythm. [...] Study Date: :03 AMBP: 92/64 mmHg Patient Location:[facility]^CV29^A : 1955 Height: 155 cm Account: [id number] Age: 67 yrs Weight: 78 kg Gender: Female BSA: 1.8 m2 Ordering Physician: ENRIQUE CHUA Referring Physician: MARIO ALBERTO CHIN Performed By: CHUCKIE Canchola Reason For Study: SAVR Stenosis Exam Location: [facility]. Interpretation Summary -Left ventricle is severely [...] suggestsworsening stenosis. Mitral regurgitation is similar. Procedure Complete-[id number]. Satisfactory quality. There is normal sinus rhythm. [...] 9:45 AM EDT) UF Heparin 0.54 IU/mL [facility] Comment: Heparin [...] Lab Enrique Chua MD HEMATOLOGY ORDERABLE S [facility] [address] documented in this encounter Visit Diagnoses Diagnosis S/P TAVR (transcatheter aortic valve replacement)- Primary Aortic valve stenosis, etiology of cardiac valve disease unspecified Heart failure with reduced ejection fraction due to heart valve disease Mild coronary artery disease by [facility] 11/09/2022 Mixed connective tissue disease Other [...] coronary artery disease by [facility] 11/09/2022 Stenosis of prosthetic aortic valve [...] dose on Wed05/12/23 at 1030, Until Discontinued, [place] teeth, Routine Given 05/12/2023 10:04 AM EDT [...] at 0831, Side port TKO rate, per [facility] flush protocol Rate/Dose Verify 05/13/2023 6:00 AM EDT 10 mL/hr 10 mL/hr Rate/Dose Verify 05/13/2023 4:00 AM EDT 10 mL/hr 10 mL/h r Rate/Dose Verify 05/13/2023 2:00 AM EDT 10 mL/hr 10 mL/h r sodium chloride 0.9% infusion 10-30 mL/hr, Intravenous, DAILY PRN, Starting on Wed05/12/23 at 0944, Until Wed05/17/23 at 0831, Side port TKO rate, per [facility] flush protocol. Rate/Dose Verify 05/17/2023 [...] post-op day 1 in the AM Give LA if unable to take PO, Routine Group [...] Routine documented in this encounter Care Teams Bacteriology Professor Relationship Specialty Start Date End Date Magdalena Acosta MD [address] [place] [address] PCP - General Family Medicine 02/05/23 documented as of this encounter
--- OUTSIDE RECORDS SUMMARY | 2024-05-02 15:11 | XMS_ITS | Encounter Summary ---
[place] [address] Care Team Providers Care Radiologic Technologist Mammogram Name Role Phone Magdalena Acosta MD Primary Care Provider [phone] Reason for Visit * Auth/Cert (Routine) Specialty Diagnoses / Procedures Referred By Contac t Referred To Contact Diagnoses Symptomatic severe aortic stenosis with low ejection fraction NSTEMI, CHF Haris Chua MD [facility] [place] [address] [facility] Referral ID Status Reason Start Date Expiration Date Visits Re quested Visits Authorized [id number] 1 1 Encounter Details Date Type Department Care Team (Late st Contact Info) Description 05/12/2023 7:35 AM EDT Anesthesia [place] [address] Lynda Mcgowan MD [facility] [place] [address] Alie Park MD [facility] [address] Anesthesia Record Procedure Summary Procedure Name Responsible [...] cephalic vein (lateral side of arm), left; [id number] catheter system; Anatomical Landmarks; US Not Used; [...] RN LDA Cath/EP Sheath 05/12/23; 0733; 14 Norwegian (Fr); Right; Femoral; Arterial 05/12/23 0733 by Guerda Bender, RN 05/12/23 0830 by Guerda Bender RN LDA Cath/EP Sheath 05/12/23; 0734; 6 Norwegian (Fr); Right; Femoral; Venous 05/12/23 0734 by Guerda Bender RN 05/12/23 0817 by Guerda Bender RN LDA Cath/EP Sheath 05/12/23; 0734; 7 Norwegian (Fr); Left; Femoral; Arterial 05/12/23 0734 by Guerda Bender, RN 05/12/23 0837 by Guerda Bender RN LDA Cath/EP Sheath 05/12/23; 0734; 6 Norwegian (Fr); Left; Femoral; Venous 05/12/23 0734 by [...] Procedure Summary Date: 05/12/23 Room / Location: SLEEP LAB TECHNOLOGIST / [facility] CATH LABS Anesthesia Start: 734 [...] All Anesthesia Providers: Anesthesiologist: Lynda Mcgowan MD Dining Room Helper: Nico Graham MD Vitals Value Taken Time [...] 05/08/2023 ??? Mild coronary artery disease by [facility] 11/09/2022 05/08/2023 ??? Heart failure with [...] IMG S&I N/A 11/09/2022 CORONARY ANGIOGRAPHY; W [facility],POSSIBLE PCI (WRVU 5.6) performed by Nitesh Escobedo MD at [facility] CATH LABS ??? PRO AORTOPLAS FOR SUPRAVALV STEN N/A 09/21/2016 @AORTOPLASTY FOR SUPRAVALVULAR STENOSIS (WRVU 29.33) performed by Alirio Esparza MD at [facility] MAIN OR ??? PRO REPLACEMENT PROSTHETIC AORTIC VALVE OPEN W CARDIOPULMONARY BYPASS HOMOGRF/STENT N/A 09/21/2016 @REPLACE AORTIC VALVE, OPEN, W\CPB, W\PROSTHETIC VALVE (WRVU 41.32) performed by Alirio Esparza MD at [facility] MAIN OR Social History Tobacco [...] 3 general, with a(n) intravenous induction Add-on cmqbx-bh-fozou TAVR. In cardiogenic shock. Has arterial line, [...] 9:00 AM EDT Laboratory Appointment Lab at [facility] Hematology Oncology [address] [place] [address] 05/12/2024 10:00 AM EDT Office Visit Hematology [place] [address] Markel Borjas MD [facility] [place] [address] 03/01/2025 4:15 PM EDT Office Visit Dermatology at [place] [address] [place] [address] Marek Bonilla MD [address], [place] [address] documented as of this encounter Visit Diagnoses [...] mL/hr documented in this encounter Care Teams Radiologic Technologist Mammogram Relationship Specialty Start Date End Date Magdalena Acosta MD [address] [place] [address] PCP - General Family Medicine 02/05/23 documented as of this encounter
--- OUTSIDE RECORDS SUMMARY | 2024-05-02 15:12 | XMS_ITS | Encounter Summary ---
Author Organization Formerly [facility] [place] [address] Care Team Providers Care Drop Wire Stringer Name Role Phone Magdalena Acosta MD Primary Care Provider [phone] Encounter Details Date Type Department Care Team (Late st Contact Info) Description 03/29/2023 Notes Only Cardiology at [address] [phone] Vahid Plasencia, RN Social History Tobacco Use [...] Mild AR; Moderate MR; Trace TR [facility] 11/09/2022: Non obstructive CAD STS 4.1 Plan:Schedule SDM clinic, diagnostics and frailty assessment. documented in this encounter Plan of Treatment Upcoming Encounters Date Type Department Care Team (Late st Contact Info) Description 05/12/2024 9:00 AM EDT Laboratory Appointment Lab at [facility] Hematology Oncology [address] [place] [address] 05/12/2024 10:00 AM EDT Office Visit [place]ematology [place] [address] Markel Borjas MD [facility] [address] [place] [address] 03/01/2025 4:15 PM EDT Office Visit Dermatology at [place] [address] [facility] [place] [address] Marek Bonilla MD [address], [place] [address] documented as of this encounter Visit Diagnoses Not on filedocumented in this encounter Care Teams Drop Wire Stringer Relationship Specialty Start Date End Date Magdalena Acosta MD [address] [place] [address] PCP - General Family Medicine 02/05/23 documented as of this encounter
--- OUTSIDE RECORDS SUMMARY | 2024-05-02 15:12 | XMS_ITS | Encounter Summary ---
Author Organization Formerly [facility] Address [facility] [place] [address] Care Team Providers Care Estate Conservator Name Role Phone Ashley Quirogazac Shields APRN Primary Care Provider [phone] Encounter Details Date Type Department Care Team [...] 9:00 AM EDT Laboratory Appointment Lab at [facility] Hematology Oncology [address] [place] [address] 05/12/2024 10:00 AM EDT Office Visit Hematology [place] [address] Markel Borjas MD [facility] [address] [place] [address] 03/01/2025 4:15 PM EDT Office Visit Dermatology at [place] [address] [facility] [place] [address] Marek Bonilla MD [address] [facility] [place] [address] documented as of this encounter Visit Diagnoses Not on filedocumented in this encounter Care Teams Estate Conservator Relationship Specialty Start Date End Date Deborah Quiroga APRN PCP - General Family Medicine 03/24/16 02/04/23 documented as of this encounter
--- OUTSIDE RECORDS SUMMARY | 2024-05-02 15:12 | XMS_ITS | Encounter Summary ---
Author Organization [facility] Address [facility] [place] [address] Care Team Providers Care Florist Helper Name Role Phone Ashley Quirogazac Shields APRN Primary Care Provider [phone] Encounter Details Date Type Department Care Team [...] Laboratory Appointment Lab at [facility] Hematology Oncology [address] [place] [address] 05/12/2024 10:00 AM EDT Office Visit [place]ematology [place] [address] Markel Borjas MD [facility] [address] HEMATOLOGY [place] [address] 03/01/2025 4:15 PM EDT Office Visit Dermatology at [place] [address] [facility] [place] [address] Marek Bonilla MD [address] [facility] [place] [address] documented as of this encounter Visit Diagnoses Not on filedocumented in this encounter Care Teams Florist Helper Relationship Specialty Start Date End Date Deborah Quiroga APRN PCP - General Family Medicine 03/24/16 02/04/23 documented as of this encounter
--- OUTSIDE RECORDS SUMMARY | 2024-05-02 15:12 | XMS_ITS | Encounter Summary ---
Author Organization [facility] [address] Care Team Providers Care Data Entry Representative Name Role Phone Magdalena Acosta MD Primary Care Provider [phone] Encounter Details Date Type Department Care Team (Late st Contact Info) Description 02/17/2023 2:00 PM EDT Office [place] [phone] Alirio Esparza MD Aortic valve stenosis, etiology [...] AM EDT Laboratory Appointment Lab at [facility] [place] Oncology [address] [place] [address] 05/12/2024 10:00 AM EDT Office Visit [place]ology [place] [address] Markel Borjas MD [facility] [address] HEMATOLOGY [place] [address] 03/01/2025 4:15 PM EDT Office Visit Dermatology at [place] [address] [place] [address] Marek Bonilla MD [address] [facility], [place] [address] documented as of this encounter Visit Diagnoses Diagnosis Aortic valve stenosis, etiology of cardiac valve disease unspecified documented in this encounter Care Teams Data Entry Representative Relationship Specialty Start Date End Date Magdalena Acosta MD [address] [place] [address] PCP - General Family Medicine 02/05/23 documented as of this encounter
--- OUTSIDE RECORDS SUMMARY | 2024-05-02 15:12 | XMS_ITS | Encounter Summary ---
Author Organization [place] [address] Care Team Providers Care Medical Lab Tech Instructor Name Role Phone Magdalena Acosta MD Primary Care Provider [phone] Encounter Details Date Type Department Care Team (Latest Contact Info) Description 02/05/2023 9:33 PM EDT - 02/05/2023 11:59 PM EDT [place] [address] Discharge Disposition: Home Social History Tobacco Use [...] tablet Take 81 mg by mouth daily. nystatin (MYCOSTATIN) 100,000 unit/gram Powder Apply topically [...] Tablet Take 1 tablet by mouth daily. cyanocobalamin, Vitamin B-12, (Vitamin [...] 9:00 AM EDT Laboratory Appointment Lab at [facility] [place]ology Oncology [address] [place] [address] 05/12/2024 10:00 AM EDT Office Visit Hematology [place] [address] Markel Borjas MD [facility] [place] [address] 03/01/2025 4:15 PM EDT Office Visit Dermatology at [place] [address] [facility] [place] [address] Marek Bonilla MD [address], [place] [address] documented as of this encounter Procedures Procedure Name Priority Date/Time Associated Diagnosis Comments SURGICAL PATHOLOGY REPORT Routine 02/05/2023 3:00 PM EDT documented in this encounter Results * Surgical Pathology Report (02/05/2023 3:00 PM EDT) Final Diagnosis [id number] ? Location: OPW The signing pathologist has (i) examined the relevant preparation(s) for the specimen(s) and (ii) rendered or confirmed the diagnosis(es). . ?Surgical Pathology DIAGNOSIS Left upper back, skin punch biopsy: - ??Compound dysplastic ??melanocytic nevus with moderate atypia, transected at peripheral specimen edges ?? (see discussion) Electronically signed by: ?Vanna CULP, Jesse Shields Verified: ??02/16/2023 8:04 ?? Dermatopathologist Performed at: ??-[facility] Dept. of [place]ology, [place] [address] Visual And Stock Associate: Kunal Rubi MD, AP, ??CLIA Certificate: [id number] DISCUSSION If there is an obvious clinical [...] Marek Bonilla MD PATHOLOGY/CYTOLOGY O [facility] [place] [address] [facility] [place] [address] documented in this encounter Visit Diagnoses Not on filedocumented in this encounter Care Teams Medical Lab Tech Instructor Relationship Specialty Start Date End Date Magdalena Acosta MD [address] [place] [address] PCP - General Family Medicine 02/05/23 documented as of this encounter
--- OUTSIDE RECORDS SUMMARY | 2024-05-02 15:12 | XMS_ITS | Encounter Summary ---
Author Organization Formerly [facility] Address [facility] [place] [address] Care Team Providers Care Terrazzo Installer Name Role Phone Deborah Quiroga APRN Primary Care Provider [phone] Encounter Details Date Type Department Care Team (Latest Contact Info) Description 07/03/2022 1:36 PM EST - 07/03/2022 11:59 PM EST Hospital Encounter [place]ology [place] [address] Discharge Disposition: Home Social History Tobacco Use [...] Tablet Take 1 tablet by mouth daily. dilTIAZem CD (Cardizem CD) [...] 9:00 AM EDT Laboratory Appointment Lab at [facility] Hematology Oncology [address] [place] [address] 05/12/2024 10:00 AM EDT Office Visit [place]ology [place] [address] Markel Borjas MD [facility] [place] [address] 03/01/2025 4:15 PM EDT Office Visit Dermatology at [place] [address] [facility] [place] [address] Marek Bonilla MD [address], [place] [address] documented as of this encounter Procedures Procedure Name Priority Date/Time Associated Diagnosis Comments FOLATE, SERUM Routine 07/03/2022 1:59 PM EST VITAMIN B12 Routine 07/03/2022 1:59 PM EST documented in this encounter Results * Folate, serum (07/03/2022 1:59 PM EST) Folate >20.0 4.8 - 24.2 ng/mL [facility] Blood Venous Draw / Unknown 07/03/2022 1:59 PM EST 07/03/2022 2:13 PM EST Narrative Resulting Agency Comment Spec In Lab Markel Borjas MD CHEMISTRY ORDERABL ES Performing Organization Address City/[facility]/ZIP Co de Phone Number [facility] [place] [address] * Vitamin B12 (07/03/2022 1:59 PM EST) Vitamin B12 449 232 - 1,245 pg/mL [facility] Blood Venous Draw / Unknown 07/03/2022 1:59 PM EST 07/03/2022 2:13 PM EST Narrative Resulting Agency Comment Spec In Lab Markel Borjas MD CHEMISTRY ORDERABL ES Performing Organization Address City/[facility]/ZIP Co de Phone Number [facility] [place] [address] documented in this encounter Visit Diagnoses Not on filedocumented in this encounter Care Teams Terrazzo Installer Relationship Specialty Start Date End Date Deborah Quiroga APRN PCP - General Family Medicine 03/24/16 02/04/23 documented as of this encounter
--- OUTSIDE RECORDS SUMMARY | 2024-05-02 15:12 | XMS_ITS | Encounter Summary ---
Author Organization Formerly [facility] Address [facility] [place] [address] Care Team Providers Care Security Risk Analyst Name Role Phone Magdalena Acosta MD Primary Care Provider [phone] Reason for Visit * Consultation (Routine) - Closed Specialty Diagnoses / Procedures Referred By Contac t Referred To Contact Rheumatology Diagnoses Weakness Kyra Haas MD [facility] [address] [place] [address] [facility] Rheumatology [address] [place] [phone] Referral ID Status Reason Start Date Expiration Date V isits Requested Visits Authorized [id number] Closed Consult, Test & Treat PCP Updated and/or Approved 02/25/2023 02/25/2024 6 6 Encounter Details Date Type Department Care Team (Late st Contact Info) Description 03/18/2023 1:00 PM EDT Office [place] [address] Kia Viramontes DO [facility] [address] Magdalena Peralta MD [facility] [place] [address] Positive FRANCISCO (antinuclear antibody) Social [...] 1:5120 speckled VIC negative Myositis panel with IMPORTER EXPORTER ab 149.1 (positive) Anti U1RNP IgG 119 [...] a chair without assistance of upper extremities. Technology Development Intern strength 3+/5 bilaterally; otherwise large muscle groups [...] due to risk of retinal toxicity with care home Plaquenil use, which she already does. Recommendations: #mixed connective tissue disease Start hydroxychloroquine 200 mg qd Labs today: repeat FRANCISCO, dsDNA, complements, CBC, CMP, CK, ESR, CRP Follow up 1 month The patient was seen and discussed with Dr. Wander Peralta MD Rheumatology Fellow Pager: [phone] CC: Kyra Haas * Kia Viramontes DO [facility] H[facility] Oncology [address] [place] [address] 05/12/2024 10:00 AM EDT Office Visit H[place]ology [place] [address] Markel Borjas MD [facility] DR HEMATOLOGY [place] [address] 03/01/2025 4:15 PM EDT Office Visit Dermatology at [place] [address] [place] [address] Marek Bonilla MD [address] [facility] [place] [address] documented as of this encounter Results * Comprehensive metabolic panel (non-fasting) (03/18/2023 2:14 PM EDT) [facility] Glucose 93 65 - 199 mg/dL [facility] Comment:Diabetes: >=200 mg/d L plus symptoms Blood Urea Nitrogen 18 8 - 18 mg/dL [facility] Creatinine 0.99 0.70 - 1.20 mg/dL [facility] Sodium 141 135 - 145 mmol/L [facility] Potassium 4.5 3.5 - 5.0 mmol/L [facility] Comment: Please note: ??Patients with WBC >100,000 may have falsely elevated Potassium levels. ??For accurate Potassium quantification in these patients send serum separator tube (gold top) for subsequent determinations. ??Contact the Clinical Chemistry Laboratory if there are any questions. Chloride 106 98 - 107 mmol/L [facility] Carbon Dioxide 24 22 - 31 mmol/L [facility] Anion Gap 11 5 - 15 mmol/L [facility] Calcium 10.0 8.5 - 10.5 mg/dL [facility] Protein, Total 7.3 6.1 - 8.0 g/dL [facility] Albumin 4.3 3.2 - 5.2 g/dL [facility] Aspartate Aminotransferase 26 0 - 30 unit/L [facility] Alanine Aminotransferase 11 0 - 30 unit/L [facility] Alkaline Phosphatase 91 35 - 105 unit/L [facility] Bilirubin, Total 0.4 0.2 - 1.3 mg/dL [facility] Est Glomerular Filtration Rate 62 >=60 mL/min/1. 73 m?? [facility] Comment: This patient's estimated GFR was [...] [facility] Co de Phone Number [facility] [place] [address] * (ABNORMAL) FRANCISCO Ab by IFA (03/18/2023 2:14 PM EDT) FRANCISCO Ab Screen Test ? Result ?Flag ??Unit ??RefValue Antinuclear Ab, HEp-2 ?Positive 1:2560 ??@ ?<1:80 (Negative) ??Substrate, S ? ADDITIONAL INFORMATION --------- ?Method: Immunofluorescence using HEp-2 cellular substrate. ??FRANCISCO Titer: ? 1:2560 ??FRANCISCO Pattern: ? Speckled ?Test Performed by: ?[facility] ?[address] [id number] ?University Archivist: Raymond Chaudhry M.D. Ph.D.; CLIA# [id number] ([id number]) [facility] Blood 03/18/2023 2:14 PM EDT 03/18/2023 3:02 PM EDT Narrative Resulting Agency Comment Spec In Lab Kia Viramontes DO CHEMISTRY ORDERABL ES [facility] [place] [address] * DNA Antibody (Double-Stranded) (03/18/2023 2:14 PM EDT) dsDNA Ab <0.6 <=15.0 IU/mL [facility] Comment: <10 negative 10-15 equivocal >15 positive This dsDNA antibody result was generated using a fluoroenzyme immunoassay on the Hungrio 250 analyzer. This quantitative test is designed to detect IgG antibodies directed against double stranded DNA in human serum. The presence of antibodies that recognize dsDNA is a highly specific marker for systemic lupus erythematosus. Please note that as of 05/26/2022 that this testing is performed by the Special Chemistry Laboratory at [facility]. This change in testing location is associated with a change is testing method and reference intervals. Please review the results of this test in association with the posted reference intervals. Blood 03/18/2023 2:14 PM EDT 03/19/2023 7:19 AM EDT Narrative Resulting Agency Comment Spec In Lab Kia Viramontes DO LAB SEND OUT ORDER JODIE Performing Organization Address [facility] Co de Phone Number [facility] [place] [address] * CK (03/18/2023 2:14 PM EDT) Creatine Kinase 38 0 - 160 unit/L [facility] Blood 03/18/2023 2:14 PM EDT 03/18/2023 2:24 PM EDT Narrative Resulting Agency Comment Spec In Lab Kia Viramontes DO CHEMISTRY ORDERABL ES Performing Organization Address [facility] Co de Phone Number [facility] [place] [address] * C4 Complement (03/18/2023 2:14 PM EDT) Complement C4 30 10 - 40 mg/dL [facility] Blood 03/18/2023 2:14 PM EDT 03/18/2023 2:24 PM EDT Narrative Resulting Agency Comment Spec In Lab Kia D Wander DO CHEMISTRY ORDERABL ES Performing Organization Address [facility] Co de Phone Number [facility] [place] [address] * C3 Complement (03/18/2023 2:14 PM EDT) Complement C3 142 90 - 180 mg/dL [facility] Blood 03/18/2023 2:14 PM EDT 03/18/2023 2:24 PM EDT Narrative Resulting Agency Comment Spec In Lab Kia Viramontes DO CHEMISTRY ORDERABL ES Performing Organization Address [facility] Co de Phone Number [facility] [place] [address] * CRP, acute inflammation (03/18/2023 2:14 PM EDT) C-Reactive Protein 3.0 <=4.9 mg/L [facility] Blood 03/18/2023 2:14 PM EDT 03/18/2023 2:24 PM EDT Narrative Resulting Agency Comment Spec In Lab Kia Viramontes DO CHEMISTRY ORDERABL ES Performing Organization Address [facility] Co de Phone Number [facility] [place] [address] * (ABNORMAL) Sedimentation rate (03/18/2023 2:14 PM EDT) Sedimentation Rate Automated 68(H) 2 - 39 mm/hr [facility] Comment: Effective July 12, 2019 new capillary photometric technology has resulted in a change in reference ranges. It is recommended that each ESR result be reviewed with its own age appropriate reference range. Blood 03/18/2023 2:14 PM EDT 03/18/2023 2:24 PM EDT Narrative Resulting Agency Comment Spec In Lab Kia Viramontes DO HEMATOLOGY ORDERAB LES Performing Organization Address [facility] Co de Phone Number [facility] [place] [address] documented in this encounter Visit Diagnoses Diagnosis Positive FRANCISCO (antinuclear antibody) Other and unspecified nonspecific immunological findings documented in this encounter Care Teams Security Risk Analyst Relationship Specialty Start Date End Date Magdalena Acosta MD [address] [place] [address] PCP - General Family Medicine 02/05/23 documented as of this encounter
--- OUTSIDE RECORDS SUMMARY | 2024-05-02 15:12 | XMS_ITS | Encounter Summary ---
[place] [address] Care Team Providers Care Cargo Worker Name Role Phone Magdalena Acosta MD Primary Care Provider [phone] Reason for Visit * Reason Comments Annual Exam Encounter Details Date Type Department Care Team (Late st Contact Info) Description 02/05/2023 2:30 PM EDT Office Visit Dermatology at [address] [address] Marek Bonilla MD [address] [facility] [place] [address] Rosacea; Ocular rosacea; Nevus Social History Tobacco [...] and ocular 2. Previously told by head sawyer that she had corneal tears from her [...] 9:00 AM EDT Laboratory Appointment Lab at [facility] Hematology Oncology [address] [place] [address] 05/12/2024 10:00 AM EDT Office Visit H[place]ology [place] [address] Markel Borjas MD [facility] [address] [place] [address] 03/01/2025 4:15 PM EDT Office Visit Dermatology at [place] [address] [place] [address] Marek Bonilla MD 580 [facility], [place] [address] documented as of this encounter Visit Diagnoses Diagnosis Rosacea Ocular rosacea Rosacea Nevus Benign neoplasm of skin, site unspecified documented in this encounter Care Teams Cargo Worker Relationship Specialty Start Date End Date Magdalena Acosta MD [address] [place] [address] PCP - General Family Medicine 02/05/23 documented as of this encounter
--- OUTSIDE RECORDS SUMMARY | 2024-05-02 15:12 | XMS_ITS | Encounter Summary ---
Author Organization [facility] [place] [address] Care Team Providers Care Closet Builder Name Role Phone Junaid Deborah Shields APRN Primary Care Provider [phone] Encounter Details Date Type Department Care Team (Latest Contact Info) Description 11/09/2022 10:37 AM EDT - 11/09/2022 4:53 PM EDT Hospital Encounter [place] [address] Nitesh Escobedo MD [facility] [place] [address] Aortic valve stenosis, etiology of cardiac valve [...] 02/05/2023 2:30 PM Marek Bonilla MD [facility] New Medications to be Picked Up None For questions regarding this document or issues relating to this hospitalization on the Medical Service, please contact your inpatient physician through the [facility] Clamshell Engineer . Issues afterhours and on weekends will be handled by the Hospitalist staff on-call. * Attachments The following attachments cannot be sent through Care Everywhere. * Coronary Angiogram: Post-op (Azerbaijani) * Right Heart Catheterization: Pulmonary Artery Catheterization: Post-op (Azerbaijani) documented in this encounter Medications at Time [...] Tablet Take 1 tablet by mouth daily. meloxicam (Mobic) 15 mg [...] MD - 11/09/2022 11:20 AM EDT . [facility] Interventional Cardiology Adult Pre-Procedure H&P Update: Cardiac Catheterization Purnima Thacker [id number] 1955 Chief Complaint: BONILLA HPI: Purnima Thacker [...] Marrero MD Interventional Cardiology 11/09/22 11:43 AM [facility] Pager: [phone] documented in this encounter Plan of Treatment Upcoming Encounters Date Type Department Care Team (Late st Contact Info) Description 05/12/2024 9:00 AM EDT Laboratory Appointment Lab at [facility] Hematology Oncology [address] [place], [place] [address] 05/12/2024 10:00 AM EDT Office Visit Hematology [place] [address] Markel Borjas MD [facility] [address] HEMATOLOGY [place] [address] 03/01/2025 4:15 PM EDT Office Visit Dermatology at [place] [address] [place] [address] Marek Bonilla MD [address], [place] [address] documented as of this encounter Procedures Procedure Name Priority Date/Time Associated Diagnosis Comments CARDIAC CATHETERIZATION Routine 11/10/19 23 1:05 PM EDT Aortic valve stenosis, etiology of cardiac valve disease unspecified Cath Plmt Left Heart Cath & Arts W/Inj & Angio Img S&I ([id number]) 11/09/2022 11:51 AM EDT Aortic valve stenosis, etiology of cardiac valve disease unspecified EKG 12-LEAD Routine 11/09/2022 11:17 AM EDT Aortic valve stenosis, etiology of cardiac valve disease unspecified documented in this encounter Results * CARDIAC CATHETERIZATION (11/09/2022 1:05 PM EDT) Anatomical Region Laterality Modality Other Narrative 11/09/2022 2:01 PM EDT ?[facility] ? Cardiac Catheterization/Intervention Report ? Patient Name: Kirstie, Purnima M. ? Procedure Date: 11/09/2022 ? A #: [id number] ? Primary Physician: Nitesh Escobedo ? Case #: [id number] ? File Name: [id number] ? Catheterization Order Number: [id number] ? [facility] ? Final Report [place], [place] ? Patient Name: ? Purnima M. Kirstie ? ID#: ?[id number] ? : ?1955 ? Procedure Date: ? November 09, 2022 ? Case #: ? [id number] ? Room: ? 1 ? Case Physician: [...] (Bezet) 457 ms MUSE SYSTEM Calculated P [place] 44 degrees MUSE SYSTEM Calculated R [place] 33 degrees MUSE SYSTEM Calculated T [place] 30 degrees MUSE SYSTEM INTERPRETATION Sinus rhythm Occasional Premature ventricular complexes Otherwise normal ECG When compared with ECG of 21-SEP-2016 12:26, Premature ventricular complexes are now Present [place] interval has decreased Nonspecific T wave abnormality has replaced inverted T waves in Inferior leads I personally reviewed the tracing and edited the fellows interpretation Confirmed by fellow MD Anitha, Carissa ([id number]) on 11/09/2022 6:17:28 PM Confirmed by Elsa [...] MD) documented in this encounter Care Teams Closet Builder Relationship Specialty Start Date End Date Deborah Quiroga, DIRECTOR OF CONVENTION SERVICES PCP - General Family Medicine 03/24/16 02/04/23 documented as of this encounter
--- OUTSIDE RECORDS SUMMARY | 2024-05-02 15:12 | XMS_ITS | Encounter Summary ---
Author Organization [facility] [place] [address] Care Team Providers Care Biology Specialist Name Role Phone Magdalena Acosta MD Primary Care Provider [phone] Reason for Referral * Consultation (Routine) - Closed Specialty Diagnoses / Procedures Referred By Contac t Referred To Contact Rheumatology Diagnoses Weakness Kyra Haas MD [facility] [address] [place] [address] [facility] Rheumatology [address] [place] [phone] Referral ID Status Reason Start Date Expiration Date V isits Requested Visits Authorized [id number] Closed Consult, Test & Treat PCP Updated and/or Approved 02/25/2023 02/25/2024 6 6 Encounter Details Date Type Department Care Team (Late st Contact Info) Description 02/25/2023 Transcribe Orders eDH Incoming Referrals [phone] Magdalena Acosta MD [address] [place] [address] Weakness Social History Tobacco Use [...] [facility] Oncology [address] [place] [address] 05/12/2024 10:00 AM EDT Office Visit [place] [address] Markel Borjas MD [facility] [address] [place] [address] 03/01/2025 4:15 PM EDT Office Visit Dermatology at [place] [address] [place] [phone] Marek Bonilla MD [address], [place] [address] Scheduled Referrals Name Type Priority Associated Diagnoses Order Schedule Referral to Rheumatology Outpatient Referral Routine Weakness Ordered: 02/25/2023 documented as of this encounter Visit Diagnoses Diagnosis Weakness Other malaise and fatigue documented in this encounter Care Teams Biology Specialist Relationship Specialty Start Date End Date Magdalena Acosta MD [address] [place] [address] PCP - General Family Medicine 02/05/23 documented as of this encounter
--- OUTSIDE RECORDS SUMMARY | 2024-05-02 15:12 | XMS_ITS | Encounter Summary ---
Author Organization [facility] Address [facility] [place] [address] Care Team Providers Care Risk Control Representative Name Role Phone Ashley Quirogazac Shields APRN Primary Care Provider [phone] Reason for Referral * Consultation (Routine) - Closed Specialty Diagnoses / Procedures Referred By Contac t Referred To Contact Neurology Diagnoses Neck pain Popeye Rogers MD [facility] [place] [address] Kyra Haas MD [facility] [address] [address] Referral ID Status Reason Start Date Expiration Date V isits Requested Visits Authorized [id number] Closed Consult, Test & Treat 06/29/2022 06/29/2023 1 1 Reason for Visit * Reason Comments Neck Pain Weak in both arms, p ain and tingling in arms and hands Encounter Details Date Type Department Care Team (Late st Contact Info) Description 06/29/2022 10:20 AM EST Office Visit [place] [address] Popeye Rogers MD [facility] [address] Neck pain Social History Tobacco Use Types [...] have EMG and nerve conduction studies in [place] that showed carpal tunnel syndrome. I do not have a copy of that report. documented in this encounter Plan of Treatment Upcoming Encounters Date Type Department Care Team (Late st Contact Info) Description 05/12/2024 9:00 AM EDT Laboratory Appointment Lab at [facility] Hematology Oncology [address] [place] [address] 05/12/2024 10:00 AM EDT Office Visit Hematology [place] [address] Markel Borjas MD [facility] DR [place] [address] 03/01/2025 4:15 PM EDT Office Visit Dermatology at [address] [place] [address] Marek Bonilla MD [address] [facility] [address] Scheduled Referrals Name Type Priority Associated Diagnoses Orde r Schedule Referral to Neurology Outpatient Referral Routine Neck pain Ordered: 06/29/2022 documented as of this encounter Visit Diagnoses Diagnosis Neck pain Cervicalgia documented in this encounter Care Teams Risk Control Representative Relationship Specialty Start Date End Date Deborah Quiroga APRN PCP - General Family Medicine 03/24/16 02/04/23 documented as of this encounter
--- OUTSIDE RECORDS SUMMARY | 2024-05-02 15:12 | XMS_ITS | Encounter Summary ---
Author Organization [facility] Address [facility] [place] [address] Care Team Providers Care Plastic Cnc Machine Operator Name Role Phone Magdalena Acosta MD Primary Care Provider [phone] Encounter Details Date Type Department Care Team [...] 9:00 AM EDT Laboratory Appointment Lab at [facility] Hematology Oncology [address] [place] [address] 05/12/2024 10:00 AM EDT Office Visit Hematology [place] [address] Markel Borjas MD [facility] DR HEMATOLOGY [place] [address] 03/01/2025 4:15 PM EDT Office Visit Dermatology at [place] [address] [facility] [place] [address] Marek Bonilla MD [address] [facility], [place] [address] documented as of this encounter Visit Diagnoses Not on filedocumented in this encounter Care Teams Plastic Cnc Machine Operator Relationship Specialty Start Date End Date Magdalena Acosta MD [address] [place] [address] PCP - General Family Medicine 02/05/23 documented as of this encounter
--- OUTSIDE RECORDS SUMMARY | 2024-05-02 15:12 | XMS_ITS | Encounter Summary ---
Author Organization [facility] [place] [address] Care Team Providers Care Horse Stud Manager Name Role Phone Ashley Quirogan Cornelius ANURAG Primary Care Provider [phone] Encounter Details Date Type Department Care Team (Late st Contact Info) Description 11/02/2022 Orders [place] [phone] Emily Lyons PA [facility] [place] [address] Aortic valve stenosis, etiology of cardiac valve [...] 9:00 AM EDT Laboratory Appointment Lab at [facility] Hematology Oncology [address] [place] [address] 05/12/2024 10:00 AM EDT Office Visit Hematology [place] [address] Markel Borjas MD [facility] DR HEMATOLOGY [place] [address] 03/01/2025 4:15 PM EDT Office Visit Dermatology at [place] [address] [facility] [place] [address] Marek Bonilla MD [address] [facility] [address] [place] [address] documented as of this encounter Visit Diagnoses Diagnosis Aortic valve stenosis, etiology of cardiac valve disease unspecified documented in this encounter Care Teams Horse Stud Manager Relationship Specialty Start Date End Date Deborah Quiroga, EDUCATION ADMINISTRATIVE ASSISTANT PCP - General Family Medicine 03/24/16 02/04/23 documented as of this encounter
--- OUTSIDE RECORDS SUMMARY | 2024-05-02 15:12 | XMS_ITS | Encounter Summary ---
Author Organization [facility] Address [facility] [place] [address] Care Team Providers Care Data Entry Clerk Name Role Phone Ashley Quirogazac Shields APRN Primary Care Provider [phone] Encounter Details Date Type Department Care Team [...] 9:00 AM EDT Laboratory Appointment Lab at [facility] Hematology Oncology [address] [place] [address] 05/12/2024 10:00 AM EDT Office Visit Hematology [place] [address] Markel Borjas MD [facility] DR [place] [address] 03/01/2025 4:15 PM EDT Office Visit Dermatology at [place] [address] [facility] [place] [address] Marek Bonilla MD [address] [facility], [address] Katherine [place] [address] documented as of this encounter Visit Diagnoses Not on filedocumented in this encounter Care Teams Data Entry Clerk Relationship Specialty Start Date End Date Deborah Quiroga APRN PCP - General Family Medicine 03/24/16 02/04/23 documented as of this encounter
--- OUTSIDE RECORDS SUMMARY | 2024-05-02 15:12 | XMS_ITS | Encounter Summary ---
Author Organization [facility] Address [facility] [place] [address] Care Team Providers Care Urologic Surgeon Name Role Phone Junaid Deborah Shields APRN Primary Care Provider [phone] Encounter Details Date Type Department Care Team (Latest Contact Info) Description 06/22/2022 10:00 AM EST Office [place] [address] Raymond Loredo MD [facility] [place] [address] Raynaud's phenomenon without gangrene; Positive FRANCISCO (antinuclear [...] can be done locally or here at [facility] that the current time is not particularly [...] for surgery by Dr. Rogers here at [facility]. In addition to painful dysesthesias in her [...] over radiocarpal or ulnocarpal joints. Hands: Normal inbound customer service agent and claw. SJC/TJC 0/0. Knees: Decreased flexion [...] [facility] [place] [place] Hematology Oncology [address] [place] [address] 05/12/2024 10:00 AM EDT Office Visit Hematology [place] [address] Markel Borjas MD [facility] DR [place] [address] 03/01/2025 4:15 PM EDT Office Visit Dermatology at [place] [address] [place] [address] Marek Bonilla MD 580 [facility] [place] [address] documented as of this encounter Visit Diagnoses Diagnosis Raynaud's phenomenon without gangrene Positive FRANCISCO (antinuclear antibody) Other and unspecified nonspecific immunological findings Primary osteoarthritis involving multiple joints Cervical disc disorder at C6-C7 level with radiculopathy documented in this encounter Care Teams Urologic Surgeon Relationship Specialty Start Date End Date Deborah Quiroga APRN PCP - General Family Medicine 03/24/16 02/04/23 documented as of this encounter
--- OUTSIDE RECORDS SUMMARY | 2024-05-02 15:12 | XMS_ITS | Encounter Summary ---
Author Organization [facility] Address [facility] [place] [address] Care Team Providers Care Car Pre Cooler Name Role Phone Magdalena Acosta MD Primary Care Provider [phone] Encounter Details Date Type Department Care Team [...] 9:00 AM EDT Laboratory Appointment Lab at [facility] [place]ology Oncology [address] [place] [address] 05/12/2024 10:00 AM EDT Office Visit Hematology [place] [address] Markel Borjas MD [facility] [place] [address] 03/01/2025 4:15 PM EDT Office Visit Dermatology at [place] [address] [facility] [place] [address] Marek Bonilla MD [address] [facility], [place] [address] documented as of this encounter Visit Diagnoses Not on filedocumented in this encounter Care Teams Car Pre Cooler Relationship Specialty Start Date End Date Magdalena Acosta MD [address] [place] [address] PCP - General Family Medicine 02/05/23 documented as of this encounter
--- OUTSIDE RECORDS SUMMARY | 2024-05-02 15:12 | XMS_ITS | Encounter Summary ---
Author Organization [facility] Address [facility] [place] [address] Care Team Providers Care Light Adjuster Name Role Phone Ashley Quirogan [place] ANURAG Primary Care Provider [phone] Encounter Details Date Type Department Care Team (Late st Contact Info) Description 01/14/2023 Refill Dermatology at [address] [address] Lupe Connor RN Social History [...] She would like the medication called into [facility] in [facility]. Discussed with Dr. Bonilla and he has approved refill of the Doxycycline 50 mg take one capsule by mouth daily in the evenings dispense 30 capsules with 2 refills. Patient notified. documented in this encounter Plan of Treatment Upcoming Encounters Date Type Department Care Team (Late st Contact Info) Description 05/12/2024 9:00 AM EDT Laboratory Appointment Lab at [facility] Hematology Oncology [address] [place] [address] 05/12/2024 10:00 AM EDT Office Visit Hematology [place] [address] Markel Borjas MD [facility] [address] HEMATOLOGY [place] [address] 03/01/2025 4:15 PM EDT Office Visit Dermatology at [place] [address] [facility] [address] [place] [address] Marek Bonilla MD [address] [facility] [address] [place] [address] documented as of this encounter Visit Diagnoses Not on filedocumented in this encounter Care Teams Light Adjuster Relationship Specialty Start Date End Date Deborah Quiroga APRN PCP - General Family Medicine 03/24/16 02/04/23 documented as of this encounter
--- OUTSIDE RECORDS SUMMARY | 2024-05-02 15:12 | XMS_ITS | Encounter Summary ---
Author Organization [facility] [place] [address] Care Team Providers Care Frozen Food Department Manager Name Role Phone Deborah Quiroga APRN Primary Care Provider [phone] Encounter Details Date Type Department Care Team (Late st Contact Info) Description 11/09/2022 11:30 AM EDT - 11/09/2022 12:30 PM EDT Surgery [place] [address] Nitesh Escobedo MD [facility] [place] [address] CARDIAC CATHETERIZATION Social History Tobacco Use Types [...] Center 02/05/2023 2:30 PM Marek Bonilla MD [facility] New Medications to be Picked Up None For questions regarding this document or issues relating to this hospitalization on the Medical Service, please contact your inpatient physician through the [facility] Breast Buffer . Issues afterhours and on weekends will be handled by the Hospitalist staff on-call. * Attachments The following attachments cannot be sent through Care Everywhere. * Coronary Angiogram: Post-op (Malagasy) * Right Heart Catheterization: Pulmonary Artery Catheterization: Post-op (Malagasy) documented in this encounter Medications at Time [...] MD - 11/09/2022 11:20 AM EDT . [facility] Interventional Cardiology Adult Pre-Procedure H&P Update: Cardiac Catheterization Purnima Thacker [id number] 1955 Chief Complaint: BONILLA HPI: Purnima Thacker [...] Marrero MD Interventional Cardiology 11/09/22 11:43 AM [facility] Pager: [phone] documented in this encounter Plan of Treatment Upcoming Encounters Date Type Department Care Team (Late st Contact Info) Description 05/12/2024 9:00 AM EDT Laboratory Appointment Lab at [facility] Hematology Oncology [address] [place] [address] 05/12/2024 10:00 AM EDT Office Visit Hematology [place] [address] Markel Borjas MD [facility] DR [place] [address] 03/01/2025 4:15 PM EDT Office Visit Dermatology at [place] [address] [facility] [address] [place] [address] Marek Bonilla MD [address] [facility] [address], [place] [address] documented as of this encounter Procedures Procedure Name Priority Date/Time Associated Diagnosis Comments CARDIAC CATHETERIZATION Routine 11/10/19 1:05 PM EDT Aortic valve stenosis, etiology of cardiac valve disease unspecified Cath Plmt Left Heart Cath & Arts W/Inj & Angio Img S&I ([id number]) 11/09/2022 11:51 AM EDT Aortic valve stenosis, [...] ? Procedure Date: 11/09/2022 ? A #: [id number] ? Primary Physician: Nitesh Escobedo ? Case #: [id number] ? File Name: [id number] ? Catheterization Order Number: [id number] ? [facility] ? Final Report [place], [place] ? Patient Name: ? Purnima M. Kirstie ? ID#: ?[id number] ? : ?1955 ? Procedure Date: ? [...] was designated as ASA Class III. The [facility] clinical frailty scale ?is 4: [...] (Bezet) 457 ms MUSE SYSTEM Calculated P [place] 44 degrees MUSE SYSTEM Calculated R [place] 33 degrees MUSE SYSTEM Calculated T [place] 30 degrees MUSE SYSTEM INTERPRETATION Sinus rhythm Occasional Premature ventricular complexes Otherwise normal ECG When compared with ECG of 21-SEP-2016 12:26, Premature ventricular complexes are now Present [place] interval has decreased Nonspecific T wave abnormality has replaced inverted T waves in Inferior leads I personally reviewed the tracing and edited the fellows interpretation Confirmed by fellow MD Anitha, Carissa ([id number]) on 11/09/2022 6:17:28 PM Confirmed by Elsa [...] MD) documented in this encounter Care Teams Frozen Food Department Manager Relationship Specialty Start Date End Date Junaid Deborah Shields, OPERATIONS ASSISTANT PCP - General Family Medicine 03/24/16 02/04/23 documented as of this encounter
--- OUTSIDE RECORDS SUMMARY | 2024-05-02 15:12 | XMS_ITS | Encounter Summary ---
Author Organization [facility] [place] [address] Care Team Providers Care Investigation Manager Name Role Phone Deborah Quiroga APRN Primary Care Provider [phone] Reason for Referral * Consultation (Routine) - Closed Specialty Diagnoses / Procedures Referred By Crispin maxwell Referred To Contact Neurology Diagnoses Polyneuropathy Deborah Quiroga APRN [address] [place] [address] [facility] Neurology [address] [place] [phone] Referral ID Status Reason Start Date Expiration Date V isits Requested Visits Authorized [id number] Closed Consult, Test & Treat 10/29/2022 10/29/2023 1 1 Encounter Details Date Type Department Care Team (Latest Contact Info) Description 10/29/2022 Transcribe Orders eDH Incoming Referrals [phone] Deborah Quiroga APRN [address] [place] [address] Polyneuropathy (Primary Dx) Social History [...] [facility] Hematology Oncology [address] [place] [address] 05/12/2024 10:00 AM EDT Office Visit [place]ematology [place] [address] Markel Borjas MD [facility] [address] [place] [address] 03/01/2025 4:15 PM EDT Office Visit Dermatology at [place] [address] [place] [address] Marek Bonilla MD [address] [place] [address] Scheduled Referrals Name Type Priority Associated Diagnoses Orde r Schedule Referral to Neurology Outpatient Referral Routine Polyneuropathy Ordered: 10/29/2022 documented as of this encounter Visit Diagnoses Diagnosis Polyneuropathy- Primary Unspecified hereditary and idiopathic peripheral neuropathy documented in this encounter Care Teams Investigation Manager Relationship Specialty Start Date End Date Deborah Quiroga APRN PCP - General Family Medicine 03/24/16 02/04/23 documented as of this encounter
--- OUTSIDE RECORDS SUMMARY | 2024-05-02 15:12 | XMS_ITS | Encounter Summary ---
Author Organization [facility] [place] [address] Care Team Providers Care Community Outreach Specialist Name Role Phone Magdalena Acosta MD Primary Care Provider [phone] Encounter Details Date Type Department Care Team (Late st Contact Info) Description 05/08/2023 [place]phone [place] [phone] Luis Felipe Ott MD [facility] [place] [address] Social History Tobacco Use Types Packs/Day Years [...] 0426 Referring Provider: Nitesh Baltazar Patient [facility]: [facility] Presenting Symptoms per OSH: 67 year [...] diuresis with IV furosemide 20 x 1 ([id number]/47 at rheumatology appointment), SpO2 85% on RA -> 95% on 2L NC, HR 120s. Examination significant for decreased breath sounds at the bases. Pertinent Diagnostic Findings: CBC - Hgb 10.5 CMP - Cr 1.1 BNP 40705 HsTrop 1358 Lactate 1.6 D-dimer 1183, CTPE pending CXR demonstrated pulmonary vascular congestion US showed bilateral b lines Bedside echo reportedly similar to prior TTE for LV function OSH Interventions: ASA 324 Heparin gtt Plan: Transfer to [facility] Above recommendations/plans are based on my conversation with the referring provider. I have not personally interviewed or examined this patient. Luis Felipe Ott MD Inside Sales Account Executive Received a call from provider emergently at 715am. Mentating well and BP 87/53. HR 108 and diursingwell. They were about to start phenylephrine which I stressed was not a good option given concern for severe and increasing afterload. She is warm on exam, mentating and urinating and we do not need to amrit a BP if those things remain stable. Nico Segura, PGY-6 Inside Sales Account Executive [id number] documented in this encounter Plan of Treatment Upcoming Encounters Date Type Department Care Team (Late st Contact Info) Description 05/12/2024 9:00 AM EDT Laboratory Appointment Lab at [facility] Hematology Oncology [address] [place] [address] 05/12/2024 10:00 AM EDT Office Visit Hematology [place] [address] Markel Borjas MD [facility] [address] [place] [address] 03/01/2025 4:15 PM EDT Office Visit Dermatology at [place] [address] [place] [phone] Marek Bonilla MD [address] [place] [address] documented as of this encounter Visit Diagnoses Not on filedocumented in this encounter Care Teams Community Outreach Specialist Relationship Specialty Start Date End Date Magdalena Acosta MD [address] [place] [address] PCP - General Family Medicine 02/05/23 documented as of this encounter
--- OUTSIDE RECORDS SUMMARY | 2024-05-02 15:12 | XMS_ITS | Encounter Summary ---
Author Organization [facility] Address [facility] [place] [address] Care Team Providers Care Power Checker Name Role Phone Magdalena Acosta MD Primary Care Provider [phone] Encounter Details Date Type Department Care Team [...] AM EDT Laboratory Appointment Lab at [facility] Hematology Oncology [address] [place] [address] 05/12/2024 10:00 AM EDT Office Visit Hematology [place] [address] Markel Borjas MD [facility] [address] HEMATOLOGY [place] [address] 03/01/2025 4:15 PM EDT Office Visit Dermatology at [place] [address] [facility] [place] [phone] Marek Bonilla MD [address] [facility], [place] [address] documented as of this encounter Visit Diagnoses Not on filedocumented in this encounter Care Teams Power Checker Relationship Specialty Start Date End Date Magdalena Acosta MD [address] [place] [address] PCP - General Family Medicine 02/05/23 documented as of this encounter
--- OUTSIDE RECORDS SUMMARY | 2024-05-02 15:12 | XMS_ITS | Encounter Summary ---
[place] [address] Care Team Providers Care [employer] Windows Engineer Name Role Phone Magdalena Acosta MD Primary Care Provider [phone] Reason for Visit * Reason Comments Suture / Staple Removal Encounter Details Date Type Department Care Team (Late st Contact Info) Description 02/16/2023 10:00 AM EDT Office Visit Dermatology at [place] [address] [facility] [place] [phone] Marek Bonilla MD [address] [facility] D[place]OLOG[place], [place] [id number] Visit for suture removal Social History Tobacco [...] AM EDT Laboratory Appointment Lab at [facility] Hematology Oncology [address] [place] [address] 05/12/2024 10:00 AM EDT Office Visit Hematology [place] [address] Markel Borjas MD [facility] [address] [place] [address] 03/01/2025 4:15 PM EDT Office Visit Dermatology at [place] [facility] [address] [facility] [place] [address] Marek Bonilla MD [address] [place] [address] documented as of this encounter Visit Diagnoses Diagnosis Visit for suture removal Encounter for removal of sutures documented in this encounter Care Teams [employer] Windows Engineer Relationship Specialty Start Date End Date Magdalena Acosta MD [address] [place] [address] PCP - General Family Medicine 02/05/23 documented as of this encounter
--- OUTSIDE RECORDS SUMMARY | 2024-05-02 15:12 | XMS_ITS | Encounter Summary ---
[facility] [place] [address] Care Team Providers Care Cementer Machine Name Role Phone Magdalena Acosta MD Primary Care Provider [phone] Reason for Visit * Auth/Cert (Routine) Specialty Diagnoses / Procedures Referred By Contac t Referred To Contact Diagnoses Symptomatic severe aortic stenosis with low ejection fraction NSTEMI, CHF Enrique Chua MD [facility] [address] [facility] Referral ID Status Reason Start Date Expiration Date Visits Re quested Visits Authorized [id number] 1 1 Encounter Details Date Type Department Care Team (Late st Contact Info) Description 05/12/2023 2:50 PM EDT - 05/12/2023 3:50 PM EDT Surgery [place] [address] Antelmo Sharma MD [facility] [address] CARDIAC CATHETERIZATION Social History Tobacco Use Types [...] Patient Age: 67 y.o. Birthdate: 1955 Language: Samoan Race: White Ethnicity: Not nor Admit Date: 05/08/2023 Discharge Date: 05/22/2023 Attending Physician: Alirio Hudson MD Follow-up Recommendations for Providers: Please continue routine management of cardiovascular risk factors including blood pressure, lipids,glucose, etc. Please note any medication changes. Patient to follow up with PCP, Magdalena Acosta MD, or Primary Supervisor Calibration, Avis Mejia MD, in ~ 7-10 days. Patient to follow up with Fabric Inspector, Dr. Antelmo Sharma, in 2 weeks with an EKG, Echo, CBC, and CMP. Patient to follow up with Nephrology, their office to arrange. Ioyy-Lyoroq-vq interval: After initial 30 day follow-up appointment , all TAVR patients will follow-up again in one year with an echo. 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 Secondary Diagnoses: Active Hospital Problems Diagnosis S/P TAVR (transcatheter aortic valve replacement) Cardiogenic shock Symptomatic severe aortic stenosis with low ejection fraction Mild coronary artery disease by [facility] 11/09/2022 Heart failure with reduced ejection [...] Tube Placement Right 05/18/2023 Laure Ricks PA [facility] INTERVENTIONL RAD PRG CATH PLMT LEFT HEART CATH & ARTS W/INJ & ANGIO IMG S&I N/A 11/09/2022 CORONARY ANGIOGRAPHY; W [facility],POSSIBLE PCI (WRVU 5.6) performed by Mario Alberto Escobedo MD at [facility] CATH LABS PRG COMBINED RIGHT & LEFT HEART CATH W/INJ L VENTRICULOGRAPHY, IMG S&I N/A 05/12/2023 COMBINED RIGHT & LEFT HEART CATH,INC INJ FOR L VENTRICULOGRAPHY (WRVU 5.99) performed by Antelmo Sharma MD at [facility] CATH LABS PRO AORTOPLAS FOR SUPRAVALV STEN N/A 09/21/2016 @AORTOPLASTY FOR SUPRAVALVULAR STENOSIS (WRVU 29.33) performed by Alirio Hudson MD at [facility] MAIN OR PRO REPLACE AORTIC VALVE (TAVR/FEDERICO)PERC FEMORAL ARTERY APPROACH 05/12/2023 @TRANSCATHETER AORTIC VALVE REPLACEMENT (TAVR), PERCUTANEOUS FEMORAL (WRVU 22.47) performed by Alirio Hudson MD at [facility] CATH LABS PRO REPLACEMENT PROSTHETIC AORTIC VALVE OPEN W CARDIOPULMONARY BYPASS HOMOGRF/STENT N/A 09/21/2016 @REPLACE AORTIC VALVE, OPEN, W\CPB, W\PROSTHETIC VALVE (WRVU 41.32) performed by Alirio Hudson MD at [facility] MAIN OR Prior To Admission Medications [...] Major Procedures/Operations: 05/12/23: Successful right transfemoral TAVR Jqikt-mc-Favet with a 23 mm Lai 3 THV. Left coronary protection with left main MINNA. Hospital Course: #Severe prosthetic s/p valve in valve TF TAVR #Low coronary heights s/p left main stent for coronary protection #Type 2 NSTEMI, present on arrival, resolved #Acute decompensated HFrEF #Cardiogenic shock #EVANS / Cardiorenal syndrome Purnima Thacker was admitted to [facility] on 05/08/2023 via the Cardiology [...] if you have questions. Please call your Fabric Inspector's office if you have any discharge or drainage from your procedural sites. Your Fabric Inspector, Dr. Antelmo Sharma and/or the Mud Analysis Operator may be reached at . Antibiotic [...] friends, go to a movie, go to bahai, etc. Heavy activities: No hunting, skiing, jogging, [...] pain, warmth or drainage. Please call your horticultural specialty grower field's office if you have any discharge or drainage from your procedural sites. If there is a lot of swelling, apply mamta wraps during the day and remove at bedtime. Elevate your legs when you are sitting. Home oxygen therapy: N/A Follow up appointments: Please schedule a follow-up appointment with your PCP, Magdalena Acosta MD, or Primary Supervisor Calibration in ~ 7-10 days. You have a follow-up appointment with your Fabric Inspector, Dr. Antelmo Sharma, in 2 weeks with an EKG, Echo, and labs prior to your appointment. You will need follow-up with Nephrology, their office will arrange. Gaah-Trmawh-ck interval: After initial 30 day follow-up appointment , all TAVR patients will follow-up again in one year with an echo. Cardiac Rehabilitation: Purnima Thacker was seen today regarding participation in the outpatient Phase 2 Cardiac Rehabilitation at [facility]. The patient agrees to a referral to this program. The referral will be sent at discharge and the patient should be contacted by the Program within 1- 2 weeks from discharge. Future Appointments and Orders Future Appointments and Orders Future Appointments Provider Department Dept Phone 07/29/2023 11:00 AM Magdalena Peralta MD [place] [facility]rive at: [facility] [address] [phone] 02/11/2024 2:00 PM Marek Bonilla MD Dermatology at [place] Arrive at: [facility] [address] [phone] Future Orders Complete By Expires Type and Screen Future Surgery, [facility] SAME DAY PROGRAM ONLY) [HRG3512 Custom] 05/11/2023 Process Instructions: This test is intended ONLY for patients with upcoming surgery for testing prior to the day of surgery obtained through the same day program (4V or SDP). For ALL OTHER PATIENTS, order a Type and Screen (ISV819) This order includes the physician order for an ABO Recheck if requested by the Blood Bank. Scheduling Instructions: Comments: Questions: Date of surgery: CBC (with Diff) [TRQ422 Custom] 06/05/2023 12/05/2023 Process Instructions: INCLUDES: WBC, RBC, Hgb, Hct, Platelets, RBC Indices and Differential Scheduling Instructions: Comments: Questions: Comprehensive metabolic panel (non-fasting) [LAB17 Custom] 06/05/2023 08/20/2023 Process Instructions: INCLUDES: Calcium, T Protein, Albumin, AST, ALT, Alk Phos, T Bili, BUN, Creat, GFR, Glucose, Lytes. Scheduling Instructions: Comments: Questions: Echocardiogram Transthoracic [39663 CPT(R)] 06/05/2023 12/05/2023 Process Instructions: Scheduling Instructions: Questions: Where will study be performed?: [facility] Clinics Does the patient have Congenital Heart Disease?: Does patient require sedation?: GA rationale: EKG 12 Lead [47549 CPT(R)] 06/05/2023 12/05/2023 Process Instructions: Scheduling Instructions: Questions: Which location will this be performed?: [place] Is a rhythm strip needed?: No [facility] Devices [EQ161 Custom] As directed Process Instructions: Scheduling Instructions: Questions: Device Needed: WALKER (E0143) Patient Height (cm): 154.9 cm (5' 0.98) Patient Weight: 75.4 kg (166 lb 3.2 oz) Diagnosis: Unsteady gait when walking Referral to Cardiac Rehab [TBA814 Custom] As directed Process Instructions: If no progress note charted, please enter Clinical details in comments. Scheduling Instructions: Questions: My question or request is: s/p TAVR. Cardiac rehab at [facility]. Referral to Home Health [REF34 Custom] As directed Process Instructions: If no progress note charted, please enter Clinical details in comments. Scheduling Instructions: Comments: DOCUMENTATION FOR VNA SERVICES PATIENT'S LOCATION: Purnima Thacker [address] [place] [address] [phone] (home) Popcorn Vendor's Name: Irineo and brother Raymond In discussion with the attending physician, it is certified that this patient is under his/her careand that MD, or an MUTUAL FUNDS AGENT, MANAGER PRIVATE, or PA who is working directly with him/her, had a npqa-jn-qobj encounter that meets the physician nzto-hi-lgja encounter requirements with this patient on 05/22/2023. [...] for managing ADLs. HOME HEALTH CARE AGENCY: [facility]. [address] [facility] [address] PHONE: [phone] FAX: [phone] Start of care: Ideally 24-48 hours after [...] Magdalena Acosta MD [address] / [facility] [phone] All VNA agencies which cover the area of patient's residence have been reviewed, either verbally joao writing, and patient has chosen the home health care agency noted. Questions: Disciplines Requested: Physical Therapy Occupational Therapy Discharge References/Attachments None Arrangements for VNA/home care: As above. (delete if no VNA) Signed: EKATERINA NAVARRETE [facility] Section of Cardiac Surgery Date: 05/22/2023 CC: Magdalena Acosta MD [place] Alberto maxwell MD [address] [place] [address] documented in this encounter Discharge Instructions * Patient Instructions* Vinod Juárez PA - 05/22/2023 9:32 AM EDT TAVR Discharge Instructions: Call your doctor if: You have a fever of greater than 101 degrees, shaking chills, if you develop redness or drainage from your procedure sites, or if you have questions. Please call your Fabric Inspector's office if you have any discharge or drainage from your procedural sites. Your Fabric Inspector, Dr. Antelmo Sharma and/or the Mud Analysis Operator may be reached at . Antibiotic [...] friends, go to a movie, go to bahai, etc. Heavy activities: No hunting, skiing, jogging, [...] pain, warmth or drainage. Please call your horticultural specialty grower field's office if you have any discharge or drainage from your procedural sites. If there is a lot of swelling, apply mamta wraps during the day and remove at bedtime. Elevate your legs when you are sitting. Home oxygen therapy: N/A Follow up appointments: Please schedule a follow-up appointment with your PCP, Magdalena Acosta MD, or Primary Supervisor Calibration in ~ 7-10 days. You have a follow-up appointment with your Fabric Inspector, Dr. Antelmo Sharma, in 2 weeks with an EKG, Echo, and labs prior to your appointment. You will need follow-up with Nephrology, their office will arrange. Suhe-Dwparc-iw interval: After initial 30 day follow-up appointment , all TAVR patients will follow-up again in one year with an echo. Cardiac Rehabilitation: Purnima Gallegol was seen today regarding participation in the outpatient Phase 2 Cardiac Rehabilitation at [facility]. The patient agrees to a referral [...] ins ( tef) Haven Ba, PT Pager: [phone] Physical Therapy Inpatient Rehabilitation Department * Nico [...] 0600 and on the weekends please page [phone]. * Jory Paniagua - 05/20/2023 3:52 PM [...] vomiting Last Bowel Movement: 05/20/23 Jory Paniagua Web Developer Programmer * Tong Mike, OT - 05/20/2023 3:16 [...] Tube Placement Right 05/18/2023 Laure Ricks PA [facility] INTERVENTIONL RAD PRG CATH PLMT LEFT HEART CATH & ARTS W/INJ & ANGIO IMG S&I N/A 11/09/2022 CORONARY ANGIOGRAPHY; W [facility],POSSIBLE PCI (WRVU 5.6) performed by Mario Alberto Escobedo MD at [facility] CATH LABS PRG COMBINED RIGHT & LEFT HEART CATH W/INJ L VENTRICULOGRAPHY, IMG S&I N/A 05/12/2023 COMBINED RIGHT & LEFT HEART CATH,INC INJ FOR L VENTRICULOGRAPHY (WRVU 5.99) performed by Antelmo Sharma MD at [facility] CATH LABS PRO AORTOPLAS FOR SUPRAVALV STEN N/A 09/21/2016 @AORTOPLASTY FOR SUPRAVALVULAR STENOSIS (WRVU 29.33) performed by Alirio Hudson MD at [facility] MAIN OR PRO REPLACE AORTIC VALVE (TAVR/FEDERICO)PERC FEMORAL ARTERY APPROACH 05/12/2023 @TRANSCATHETER AORTIC VALVE REPLACEMENT (TAVR), PERCUTANEOUS FEMORAL (WRVU 22.47) performed by Alirio Hudson MD at [facility] CATH LABS PRO REPLACEMENT PROSTHETIC AORTIC VALVE OPEN W CARDIOPULMONARY BYPASS HOMOGRF/STENT N/A 09/21/2016 @REPLACE AORTIC VALVE, OPEN, W\CPB, W\PROSTHETIC VALVE (WRVU 41.32) performed by lAirio Hudson MD at [facility] MAIN OR Social History: Patient lives alone. Home Setup: Pt lives on one level with tub shower and three steps to enter. DME: none used DISTRIBUTION CENTER MANAGER Baseline ADL/Mobility: Independent with ADLs and [...] Discharge Disposition (OT): swing bed rehabilitation facility, fdc facility(vs home with support for IADLs) Other [...] Discharge planning. Total Minutes, Occupational Therapy: 28 ([id number]) OT Evaluation Code Rationale: Diagnosis & Pertinent Co-Morbidities affecting Plan of Care: see PMHx Occupational Profile & Client History: Brief Expanded Extensive x Assessment of Occupational Performance: 1-3 performance deficits 3-5 performance deficits x 5 + performance deficits Clinical Decision Making: Low Moderate High x Clinical decision making of moderate complexity using standardized patient assessment instrument and measurable assessment of functional outcome. Pager: [phone] TONG MIKE OT 05/20/2023 Occupational Therapy Rehabilitation [...] 0600 and on the weekends please page [phone]. * Rylie Rodriguez MD - 05/19/2023 3:59 [...] Overall, patient's renal function has improved. Ms. hTacker will require establishment of nephrology outpatient care [...] and plan. Cynthia Blackburn MD Nephrology Pager: [phone] * Diana Espino - 05/19/2023 1:49 PM EDT Distributor Sales Consultant Encounter Note Patient Name: Purnima Thacker : [id number] MR#: [id number] Admit Date: 05/08/2023 9:14 AM Hospital Day [...] returning home alone. Anticipated Discharge Disposition (PT): fdc facility, swing bed rehabilitation facility Consult Recommendations: [...] as stated. Total Minutes, Physical Therapy: 38 ([phone]) Henrik Navarrete PTA Pager: [phone] Physical Therapy Inpatient Rehabilitation Department * Nico [...] 0600 and on the weekends please page [phone]. * Laure Ricks PA - 05/19/2023 7:56 [...] Ricks PA-C Interventional Radiology IR Team Pager [phone] * Consuelo Espinoza RN - 05/18/2023 4:13 PM EDT ANGIO NURSING DATABASE Name: Purnima Thacker Date of : 1955 AGE: 67 y.o. Address: [address] [place] [address] (home) Mobile: No relevant phone numbers on [...] fraction I35.0 Mild coronary artery disease by [facility] 11/09/2022 I25.10 Heart failure with reduced [...] and plan. Cynthia Blackburn MD Nephrology Pager: [phone] * Magdalena Puri, TESTER OPERATOR HELPER - 05/18/2023 10:51 AM EDT Images from the original note were not included. [facility] [place] [address] [address] STRUCTURAL HEART DISEASE CONSULTATION NOTE PRIMARY CARE [...] stenosis. She is now status post TAVR Pxaso-kt-Yaeut with a 23 mm Lai 3 THV 05/12/[address] Sharma. Preliminary findings: Successful right transfemoral TAVR Eabub-at-Jnxpi with a 23 mm Lai 3 THV. [...] ejection fraction Mild coronary artery disease by [facility] 11/09/2022 Heart failure with reduced ejection [...] tablet 81 mg 81 mg Oral Daily CarmineMara ernandez APRN 81 mg at 05/18/23 0826 ondansetron (pf) (Zofran) (2 mg/mL) injection 4 mg 4 mg Intravenous Q8H PRN CarmineMara ernandez APRN4 mg at 05/12/23 0736 pantoprazole EC (Protonix) tablet 40 mg 40 mg Oral Daily MaggieMara ernandez APRN 40 mg at 05/18/23 0826 Or pantoprazole (Protonix) injection 40 mg 40 mg Intravenous Daily CarmineMara ernandez APRN 40 mg at 05/12/23 1004 senna-docusate (Pericolace) 8.6-50 mg per tablet 2 tablet 2 tablet Oral Daily MaggieMara ernandez APRN 2 tablet at 05/16/232111 bisacodyL (Dulcolax) suppository 10 mg 10 mg Rectal Daily PRN MaggieMara ernandez APRN melatonin tablet 6 mg 6 mg Oral Nightly PRN CarmineMara ernandez APRN 6 mg at 05/17/232024 influenza vaccine adjuvanted (Adult 65 Yrs +) (FluAD Quad) (PF) IM injection 0.5 mL 0.5 mL Intramuscular Prior to discharge CarmineMara ernandez APRN FAMILY HISTORY: No family history [...] stenosis. She is now status post TAVR Qilrd-ci-Vgfjv with a 23 mm Lai 3 THV [...] Magdalena Puri APRN Structural Heart Team Pager [phone] Team Office Please see addendum by Dr. Sharma for final plan and recommendations Associated attestation - Antelmo Sharma MD - 05/19/2023 10:52 PM EDT I have reviewed Magdalena Puri APRN's above history and I agree with the details as written. The assessment and plan were formulated in discussion with me and I agree with them as documented. Antelmo Sharma MD Pager [phone] * Nico Palacios PA - 05/18/2023 8:13 [...] 0600 and on the weekends please page [phone]. * Loli Hernandez, PT - 05/17/2023 5:27 [...] returning home alone. Anticipated Discharge Disposition (PT): fdc facility, swing bed rehabilitation facility Consult Recommendations: [...] plan as stated. Time IN / OUT: 1899-9621 Total Minutes, Physical Therapy: 54 Billing Code: te-sx2, te-f, angely HERNANDEZ PT Pager: [phone] Physical Therapy Inpatient Rehabilitation Department * Cynthia [...] Well controlled. Cynthia Blackburn MD Nephrology Pager: [phone] * Mara Serrano, TESTER OPERATOR HELPER - 05/17/2023 8:26 AM EDT Cardiac [...] 0600 and on the weekends please page [phone]. * Guerda Del Valle C - 05/16/2023 10:44 AM EDT Nutrition Services Note - Low Nutrition Acuity Purnima Thacker is a 67 y.o. female Reason for intervention: hospital day 9 Nutrition Plan: Continue diet order Encourage good PO Lasix and Zofran noted Added special serve: open containers Monitor weight Patient scheduled for a hospital day 9 nutrition evaluation. Telecommunication Tower Technician met with pt at bedside. Pt reports that her appetite and PO has much improved since admission. Denies nausea/vomiting or trouble chewing/swallowing. Telecommunication Tower Technician provided snack list but pt not interested in adding snacks at this time. Her only concern was that she is worried that she will eat too much which will cause too much pressure in her stomach. Telecommunication Tower Technician assured pt and suggested eating smaller [...] Last Bowel Movement: 05/10/23 Guerda Del Valle Web Developer Programmer * Vinod Juárez PA - 05/16/2023 10:19 [...] 0600 and on the weekends please page [phone]. * Michael Jeffers MD - 05/16/2023 8:11 AM EDT Images from the original note were not included. Hypertension-Nephrology Inpatient Follow-up Purnima Thacker [id number] 1955 ID: 67 y.o. old female seen [...] IRONSAT 12 (L) 05/16/2023 SFOLATE >20.0 07/03/2022 [id number] 07/03/2022 Lab Results Component Value Date [...] Dr. Ayoub. Please contact me at phone: [phone] or pager: [phone] with any questions. Michael Jeffers MD Nephrology [...] -Nephrology consulted, labs and renal US ordered -Coinjock removed, ambulated around the unit -bilateral pleural [...] 0600 and on the weekends please page [phone]. * Hortencia Cody MD - 05/15/2023 2:07 [...] not included. Hypertension-Nephrology Inpatient Follow-up Purnima Thacker [id number] 1955 ID: 67 y.o. old female seen [...] HGB 7.8 (L) 05/13/2023 SFOLATE >20.0 07/03/2022 [id number] 07/03/2022 Lab Results Component Value Date [...] Dr. Ayoub. Please contact me at phone: [phone] or pager: [phone] with any questions. Michael Jeffers MD Nephrology [...] last 720 hours. T/L/D Art ETT CVL Downing ASSESSMENT, MANAGEMENT, and DECISION MAKIN y.o. female [...] outlined inthis evaluation. HAVEN BA, PT Pager: [phone] Physical Therapy Inpatient Rehabilitation Department Time IN / OUT: 4996-2255 Total time: Total Minutes, Physical Therapy: 30 [...] 0600 and on the weekends please page [phone]. * Antelmo Sharma MD - 05/14/2023 7:56 AM EDT Images from the original note were not included. [facility] [place] [address] STRUCTURAL HEART DISEASE CONSULTATION NOTE PRIMARY CARE [...] stenosis. She is now status post TAVR Suqte-qu-Yrnmn with a 23 mm Lai 3 THV 05/12/[address] Sharma. Preliminary findings: Successful right transfemoral TAVR Hpqtd-mk-Uvjub with a 23 mm Lai 3 THV. [...] perforation. Interval Events: - 05/12 Transferred to [facility] post- TAVR for pressor/inotropic support (Levo, vaso, [...] ejection fraction Mild coronary artery disease by [facility] 11/09/2022 Heart failure with reduced ejection [...] stenosis. She is now status post TAVR Ryibv-nk-Iwqyo with a 23 mm Lai 3 THV 05/12/[address] Sharma. Janet TAVR case notable for coronary LAD protective MINNA. Status post TAVR, the patient was transferred to [facility] for pressor and inotropic support. Pressors weaned [...] Brody Kaplan APRN Structural Heart Team Pager [phone] Team Office Please see addendum by Dr. [...] exposure. Nephrology consultationtoday. Antelmo Sharma MD Pager [phone] * Antelmo Cardenas RN - 05/14/2023 5:18 AM EDT Pt AOx4, complaining of mild/moderate generalized pain (states her Meloxicam is effective at home) currently refusing prn oxycodone. NAEON, hemodynamically stable on Milrinone, Maps >65, ST in xtt803's down to NSR with frequent multifocal PVC's. [...] original note were not included. [facility] [place] [address] [place] [address] STRUCTURAL HEART DISEASE PROGRESS NOTE PRIMARY CARE [...] stenosis. She is now status post TAVR Koexa-aa-Vpvxf with a 23 mm Lai 3 THV 05/12/[address] Sharma. Preliminary findings: Successful right transfemoral TAVR Bnkmg-ti-Ueteo with a 23 mm Lai 3 THV. [...] ejection fraction Mild coronary artery disease by [facility] 11/09/2022 Heart failure with reduced ejection [...] tablet 90 mg 90 mg Oral BID Lorir Chinchilla PA 90 mg at 05/13/23 0825 [...] stenosis. She is now status post TAVR Rkutk-vi-Ufonb with a 23 mm Lai 3 THV 05/12/[address] Sharma. Janet TAVR case notable for coronary LAD protective MINNA. Status post TAVR, the patient was transferred to [facility] for pressor and inotropic support. Pressors weaned [...] Brody Kaplan APRN Structural Heart Team Pager [phone] Team Office Please see addendum by Dr. [...] DAPT moving forward. Antelmo Sharma MD Pager [phone] * Bonita Miguel PA - 05/13/2023 8:30 [...] soft b/l, no evidence of hematoma. Tubes/Lines/Drains: Coinjock, RIJ, A-line, Art, PIV Assessment/Plan: 67 y.o. [...] 0600 and on the weekends please page [phone]. * Onelia Schwartz MD - 05/12/2023 1:44 [...] ejection fraction Mild coronary artery disease by [facility] 11/09/2022 Heart failure with reduced ejection [...] FiO2 weaned to 40%. 1105: ABG 7.34/42/73/22 4056-0287: SBT performed and passed on these settings [...] PCP: Magdalena Acosta MD PCP phone number: [phone] Date of Admission: 05/08/2023 ( Hospital Day [...] 1447 PHART -- 7.34* 7.34* -- -- [id number] -- 30* 30* -- -- PO2ART -- 72* 81* -- -- KJE6AEB -- 16.0* 15.7* -- -- LACTATEVEN 2.4* 2.7* 2.7* 4.8* 2.9* VBG (Venous Blood Gas) Recent Labs 05/12/23 0700 05/12/238 05/12/2310505/11/23193905/11/23 144 LACTATEVEN 2.4* 2.7* 2.7* 4.8* 2.9* Mixed Venous Sat Recent Labs 05/12/23 0508 05/12/23 0321 05/12/23 0114 05/12/23 0030 [id number] 30.7 32.7 37.3 25.1 Objective: Vitals Last [...] questions please contact the health animal care technician that requested your imaging first. Electronically signed by: ALIX RUVALCABA MD, [facility] ([phone]), at 05/10/2023 1:[address] Cardiac for [...] questions please contact the health animal care technician that requested your imaging first. Electronically signed by: Cullen Narayanan MD, [facility] ([phone]), at 05/11/2023 4:[address] Angiogram Abdomen [...] questions please contact the health animal care technician that requested your imaging first. Electronically signed by: Eileen Gomes MD, [facility] ([phone]), at 05/11/2023 2:42 PM XR Chest One [...] questions please contact the health animal care technician that requested your imaging first. Electronically signed by: Will Rowe MD, [facility] ([phone]), at 05/11/2023 11:57 PM XR Chest One [...] questions please contact the health animal care technician that requested your imaging first. Electronically signed by: Will Rowe MD, [facility] ([phone]), at 05/12/2023 3:16 AM Assessment & Plan: [...] and inotrope. She is planned for a vyadt-ra-mergv TAVR this morning, which should hopefully improve [...] MD, FACP, FACC Section of Cardiovascular Medicine [facility] Director Payerrunner worker [facility] [employer] [facility] * Noreen Deutsch RN - [...] ejection fraction Mild coronary artery disease by [facility] 11/09/2022 Heart failure with reduced ejection [...] 05/11/2023 4:11 PM EDT Reported off to COMMODITY DIRECTOR and pt transferred over in the bed for higher level of care. * Antelmo Sharma MD - 05/11/2023 9:45 AM EDT Images from the original note were not included. [facility] [place] [address] STRUCTURAL HEART DISEASE CONSULTATION NOTE PRIMARY CARE PROVIDER: Magdalena Acosta MD REFERRING PROVIDER: Mario Alberto Chin REASON FOR CONSULTATION: Bioprosthetic aortic valve stenosis HISTORY OF PRESENT ILLNESS: Patient ID: Purnima Thakcer is a 67 [...] who had been referred for possible TAVR hjvos-vo-ogwls evaluation. Her primary symptoms are of dyspnea [...] negative. Ms. Thacker is originally from [facility]. 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 She states [...] ejection fraction Mild coronary artery disease by [facility] 11/09/2022 Heart failure with reduced ejection [...] hour(s)) Lactate, whole blood, send to lab ([facility] Result Value Ref Range Lactate WB 3.1 (H) 0.5 - 2.2 mmol/L Heparin (unfractionated) Level Result Value Ref Range Heparin UFH Level 0.46 IU/mL Lactate, whole blood, send to lab ([facility] Result Value Ref Range Lactate WB 1.8 [...] leads Confirmed by MD Harshil, Enrique Bell ([id number]) on 05/10/2023 8:11:46 AM Cardiac Cath 11/09/2022 [...] alert Dr. Hudson of her inpatient status, richardson primary cardiac surgeon. Based on recent clinic visit, tentative plan had been for TAVR JANET issa ferrera given her chronological age. Cardiac cath 11/09/2022 notable for non-obstructive coronary disease. TAVR CTAs planned for today. Will review her case with cardiac surgery to determine best timing and therapies for her valve intervention. Addendum 05/11/2023 6:48 PM Due to decompensating HFrEF, she was transferred to [facility] this afternoon for further management. TAVR CT imaging support for adequate ileofemoral access. Given her acute deterioration today, will planfor RTF TAVR on 05/12/2023. Brody Kaplan APRN Structural Heart Disease Pager [phone] Please see addendum by Dr. Sharma for [...] signed and dated. Antelmo Sharma MD Pager [phone] * Harini Lance MD - 05/11/2023 6:06 AM EDT Images from the original note were not included. Cardiology Progress Note Patient info: Name: Purnima Thacker : 1955 PCP: Magdalena Acosta MD PCP phone number: [phone] Date of Admission: 05/08/2023 ( Hospital Day [...] questions please contact the health animal care technician that requested your imaging first. Electronically signed by: ALIX RUVALCABA MD, [facility] ([phone]), at 05/10/2023 1:25 PM TTE: 05/08 -Left [...] Lance MD Internal Medicine, PGY-1 Cardiology M1-S2, #[id number] 05/11/2023, 6:06 AM Associated attestation - Juan Luis Gonzalez MD - 05/11/2023 10:20 PM EDT Cardiology Attending Addendum Active Hospital Problems Diagnosis Symptomatic severe aortic stenosis with low ejection fraction Heart failure with reduced ejection fraction due to heart valve disease 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, 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) Mild coronary artery disease by [facility] 11/09/2022 Hyperlipidemia, unspecified NICOLAS (obstructive sleep [...] PCP: Magdalena Acosta MD PCP phone number: [phone] Date of Admission: 05/08/2023 ( Hospital Day [...] 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) Mild coronary artery disease by [facility] 11/09/2022 Hyperlipidemia, unspecified NICOLAS (obstructive sleep [...] PCP: Magdalena Acosta MD PCP phone number: [phone] Date of Admission: 05/08/2023 ( Hospital Day [...] Gas) No results found for: PHART, PO2ART, BIF0DPD, VCR2PLW Microbiology: Microbiology Results (Last 30 days) No [...] PPx: Diet: Daily Healthy Menu Choices/Cardiac diet ([facility]) Lines: Peripheral IV Line - Single Lumen [...] 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) Mild coronary artery disease by [facility] 11/09/2022 Hyperlipidemia, unspecified NICOLAS (obstructive sleep [...] fraction I35.0 Mild coronary artery disease by [facility] 11/09/2022 I25.10 Heart failure with reduced ejection fraction due to heart valve disease I50.20, I38 Cardiogenic shock R57.0 S/P TAVR (transcatheter aortic valve replacement) Z95.2 Past Medical History: Diagnosis Date Anemia Past Surgical History: Procedure Laterality Date PRG CATH PLMI LEFT HEART CATH & ARTS W/INJ & ANGIO IMG S&I N/A 11/09/2022 CORONARY ANGIOGRAPHY; W [facility],POSSIBLE PCI (WRVU 5.6) performed by Mario Alberto Escobedo MD at [facility] CATH LABS PRO AORTOPLAS FOR SUPRAVALV STEN N/A 09/21/2016 @AORTOPLASTY FOR SUPRAVALVULAR STENOSIS (WRVU 29.33) performed by Alirio Hudson MD at [facility] MAIN OR PRO REPLACEMENT PROSTHETIC AORTIC VALVE OPEN W CARDIOPULMONARY BYPASS HOMOGRF/STENT N/A 09/21/2016 @REPLACE AORTIC VALVE, OPEN, W\CPB, W\PROSTHETIC VALVE (WRVU 41.32) performed by Alirio Hudson MD at [facility] MAIN OR Social History and Habits: [...] fraction I35.0 Mild coronary artery disease by [facility] 11/09/2022 I25.10 Heart failure with reduced ejection fraction due to heart valve disease I50.20, I38 Cardiogenic shock R57.0 S/P TAVR (transcatheter aortic valve replacement) Z95.2 Past Medical History: Diagnosis Date Anemia Past Surgical History: Procedure Laterality Date PRG CATH PLMI LEFT HEART CATH & ARTS W/INJ & ANGIO IMG S&I N/A 11/09/2022 CORONARY ANGIOGRAPHY; W [facility],POSSIBLE PCI (WRVU 5.6) performed by Mario Alberto Escobedo MD at [facility] CATH LABS PRO AORTOPLAS FOR SUPRAVALV STEN N/A 09/21/2016 @AORTOPLASTY FOR SUPRAVALVULAR STENOSIS (WRVU 29.33) performed by Alirio Hudson MD at [facility] MAIN OR PRO REPLACEMENT PROSTHETIC AORTIC VALVE OPEN W CARDIOPULMONARY BYPASS HOMOGRF/STENT N/A 09/21/2016 @REPLACE AORTIC VALVE, OPEN, W\CPB, W\PROSTHETIC VALVE (WRVU 41.32) performed by Alirio Hudson MD at [facility] MAIN OR Social History and Habits: [...] days, which prompted her to present to [facility]. She also endorses some intermittent retrosternal chest pain with exertion.She endorses some dizziness with exertion, but has not gotten faint or passed out. At [facility] she was noted to be afebrile, blood pressure 105/64, HR 120s, satting 95% on 2L NC. Labs from [facility] are below, of note she had [...] 89/59, which prompted the transfer to us. [facility] labs: CBC - Hgb 10.5 CMP - Cr 1.1 BNP 82716 HsTrop 1358 Lactate 1.6 D-dimer 1183 Interval History Patient was admitted to [facility] due to concern on low BP iso [...] Klaudia Reid MD Internal Medicine PGY-1 Pager [phone], M1-S1 Service Associated attestation - Juan Luis Gonzalez MD - 05/08/2023 10:00 PM EDT Cardiology Attending Addendum Active Hospital Problems Diagnosis Symptomatic severe aortic stenosis with low ejection fraction Heart failure with reduced ejection fraction due to heart valve disease Mild coronary artery disease by [facility] 11/09/2022 Hyperlipidemia, unspecified History of aortic [...] PCP: Magdalena Acosta MD PCP phone number: [phone] Date of Admission: 05/08/2023 ( Hospital Day 0 days ) Attending:Enrique Chua MD ID: Purnima Thacker is a 67 y.o. female w/ PMH of s/p bioprosthetic AVR in 2016 with recent concern for severe restenosis, HTN, HLD, mixed connective tissue disease, who presents in transfer from [facility] with worsening BONILLA and weight gain [...] four days, which promptedher to present to [facility]. She also endorses some intermittent retrosternal chest pain with exertion. She endorses some dizziness with exertion, but has not gotten faint or passed out. At [facility] she was noted to be afebrile, blood pressure 105/64, HR 120s, satting 95% on 2L NC. Labs from [facility] are below, of note she had [...] 89/59, which prompted the transfer to us. [facility] labs: CBC - Hgb 10.5 CMP - Cr 1.1 BNP 12660 HsTrop 1358 Lactate 1.6 D-dimer 1183 Vasoactive [...] tissue disease, who [facility] BONILLA and weight gain concerning [...] #Routine Diet: Daily Healthy Menu Choices/Cardiac diet ([facility]) DVT Prophylaxis: heparin gtt GI Prophylaxis: none [...] to the planned procedure. Hand Hygiene: The ripening room hand did perform hand hygiene prior to arterial [...] Successful arterial line placement. Crispin Timmons MD Mud Analysis Operator Associated attestation - Onelia Schwartz MD [...] (flow was non-pulsatile) and appearance of blood. [place]injock-Marily catheter was placed and locked at 55 [...] information for follow-up [facility], [place] [address] [place] [address] Cardiac Rehab, [place] [id number] [place] [address] [facility], [place] [address] [place] [address] Transportation: family or friend will provide *Brother [...] Type: *No Product type* / Secondary Insurance: [employer] [place] Prescription Coverage: Yes This plan was formulated with input from patient, family (please identify family/friend involved ifapplicable) and team. All are in agreement with plan. Aliza Martino MSN-Ed, RN ACM mechanical integrity specialist Office of Care Management Pager #[phone] * Plan of Care - Favian Mckeon [...] Lana Chaudhary RN - 05/21/2023 4:46 [address] [facility] referral OFFICE OF CARE MANAGEMENT [...] Type: *No Product type* / Secondary Insurance: [employer] [facility] [place] Last Physical Therapy Recommendation: (Home with assist from Brother; Friend arriving Tues) with walker, front wheeled Last Occupational Therapy Recommendation: swing bed rehabilitation facility, fdc facility (vs home with support for IADLs) [...] geographic area. They have requested referrals to: [facility] [address] [place] [address] [facility] [place], [place] Note routed to a Lot Technician who will communicate referrals to facilities and provide any required information. Transportation: family or friend will provide *Brother Raymond on Tuesday 05/22 at 1000 Barriers to discharge: Does not have home 22/02 assist available until tomorrow Tuesday 05/22 Plan going forward: Discharge home into the 22/02 home care of brother Raymond with [facility] and [facility] PT/OT services on Tuesday 05/22 [...] Appropriate) * Plan of Care - Naldo Henradez RN - 05/19/2023 4:08 PM EDT Shift [...] Attending: All Staff: Staff Role Juanita Almaguer [place] Laure Ricks PA Physician Tester Armature Or Fields Magdalena Rodriguez RN Radiology Nurse Consuelo Espinoza metal cut off saw tender Nurse Post-operative diagnosis/Indication: Right pleural effusion [...] Type: *No Product type* / Secondary Insurance: [employer] [facility] [place] Last Physical Therapy Recommendation: fdc facility, swing bed rehabilitation facility with to [...] to: discuss discharge planning needs. provide the [facility], Office of Care Management letter from the Senior Quality Assurance Analyst pertaining to rehab referrals. provide a letter [...] for referral. They have requested referrals to: [facility] [address] [place] [address] [facility] ([facility]) [address] [place] [address] (Accepts pts only after exhausting all other local SNF options) [facility] ([facility]) ([facility]) [address] [place] [address] PHONE: [phone] FAX: [phone] [facility] ([facility]) [facility]) [address] [place] [address] PHONE: [phone] FAX: [phone] Note routed to a Lot Technician who will communicate referrals to facilities [...] Crenshaw RN - 05/17/2023 10:25 AM EDT [facility] CARDIAC REHABILITATION Purnima Thacker was seen today regarding participation in the outpatient Phase 2 Cardiac Rehabilitation at [facility]. The patient agrees to a referral [...] from the original note were not included. [facility] NEPHROLOGY/HYPERTENSION CONSULT NOTE PATIENT: Purnima Thacker [...] in her course. She ultimately underwent a imsco-mx-ubsin procedure on and tolerated it well (see operative details). [facility] and [facility] on some pressors [...] 1423 05/12/23 1105 PHART 7.39 7.37 7.34* RRR5LEC 33* 36 42 PO2ART 101 102 73* NTT6ZOX 19.5* 20.4 22.1 LACTATEVEN 1.5 1.8 2.8* SJK2NBL 40 40 40 PFRATIOART2 252 255 182 VBG (Venous Blood Gas) Recent Labs 05/12/23 1557 05/12/23 1423 05/12/23 1105 LACTATEVEN 1.5 1.8 2.8* Mixed Venous Sat Recent Labs 05/12/23 1425 05/12/23 0508 05/12/23 0321 [id number] 59.9 30.7 32.7 LFT's: Recent Labs 05/14/23 0110 05/13/23 0115 05/12/23 0600 BILITOT 0.4 0.5 0.9 BILIDIR -- 0.3 -- ALBUMIN 3.6 3.0* 3.5 ALKPHOS 86 85 100 ALT 437* 903* 1,174* AST 319* 792* 1,435* No results found for: UPROTCREAT No results found for: TPROTEINPEP, ALBELECT No results found for: MICROALBUR, [id number] No results found for: HA1C Lab Results Component Value Date CALCIUM 8.5 05/14/2023 PHOS 4.7 (H) 05/08/2023 No results found for: 25OHVITD MICROBIOLOGY: ProcedureComponentValueUnitsDate/TimeUrine culture [[id number]]Collected: 05/11/231921Lab Status: Final resultSpecimen: Clean Catch UrineUpdated: [...] consulted for assessment if this patient needs CONCRETE PIPE MAKER. Atthis time, we can likely hold off on CONCRETE PIPE MAKER. Her volume status appears sufficient and her metabolic kanwal angements with mild acidosis is not too profound. Patient does not have significant uremic symptoms. We can hold off for today, but the patient is a high risk candidate for needing CONCRETE PIPE MAKER in future daysespecially if her Cr curve trends the direction it is for the next several days. S/p Vacny-si-Yjjia TF TAVR: Management per cardiology. On milrinone gtt. PLAN: - Please obtain following diagnostics: renal US, urinalysis, urine prot/Cr ratio, urine albumin/Cr ratio, CK, uric acid, serum osmol, daily VBGs - No acute indications for CONCRETE PIPE MAKER/dialysis. We will keep close eye on Cr trend, volume status, and metabolics to ensure patient still does not need CONCRETE PIPE MAKER as she ensues intrinsic renal recovery [...] M.H.Katherine., M.A. PGY-V Nephrology-Hypertension Fellow Page # [phone] [facility] [address] floor, Sheeter Operator [address] [place] [address] * Care Management - Mario Alberto Olmos [...] for a TAVR at 730. Returned to [facility] at 0945. Was intubated in the sawyer [...] Operative Note Patient Name: Purnima Thacker : [id number] MR#: [id number] Case Date: 05/12/2023 Surgeon: Surgeon(s) and Role: [...] procedure Note: Patient Name: Purnima Thacker : [id number] MR#: [id number] Case Date: 05/12/2023 Operators Surgeon: Surgeon(s) and [...] main with 4.0 x 30 mm Resolute Monona Drug Eluting Stent Perclose x1 + Angio-seal 8 Fr x1, RFA Manual pressure, LFA Manual pressure, LFV Endotracheal intubation (performed by cardiac anesthesia) Preliminary findings: Successful right transfemoral TAVR Dubil-vj-Gmurd with a 23 mm Lai 3 THV. [...] evident early complications. Full report to follow. Rebekha Tejeda MD, M.Sc. Structural Heart Disease Fellow Pager :[phone] Antelmo Sharma MD Pager [phone] * Op Note - Alirio Hudson MD - 05/12/2023 7:37 AM EDT Preop Diagnosis: Severe aortic stenosis, symptomatic. Postop Diagnosis: Same. Procedure: Transfemoral TAVR procedure with 23mm valve. Surgeon: Alirio Hudson M.D. Supervisor Calibration: Danny CULP Procedure: The patient was taken [...] Brody Kaplan APRN Structural Heart Disease Pager [phone] * Consult Note - Vinod Juárez PA - 05/11/2023 2:16 PM EDT Cardiac Surgery Consultation Note Purnima hTacker is seen at the request of Dr. 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 [facility] [place] [address] [place] [address] STRUCTURAL HEART DISEASE CONSULTATION NOTE PRIMARY CARE [...] who had been referred for possible TAVR hfspk-rz-ktlgx evaluation. Her primary symptoms are of dyspnea [...] negative. Ms. Thacker is originally from [facility]. 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 PROBLEM LIST: Patient Active Problem List Diagnosis Symptomatic severe aortic stenosis with low ejection fraction Mild coronary artery disease by [facility] 11/09/2022 Heart failure with reduced ejection [...] hour(s)) Lactate, whole blood, send to lab ([facility] Result Value Ref Range Lactate WB 1.8 [...] leads Confirmed by MD Harshil, Enrique Bell ([id number]) on 05/10/2023 8:11:46 AM Assessment and Plan: [...] alert Dr. Hudson of her inpatient status, richardson primary cardiac surgeon. Based on recent clinic [...] Antelmo Sharma MD Structural Heart Disease Pager [phone] * Plan of Care - Sarahi Nice RN - 05/10/2023 3:55 AM EDTSumavis: RN Note and Care Plan Sarahi Nice RN assumed care of pt at time of their arrival to room 362 from [facility]. Pt voices shortness of breath at time [...] VTE (Venous Thromboembolism) Risk Flowsheets (Taken 05/09/2023 3886) VTE Prevention/Management: anticoagulant therapy Intervention: Prevent Infection [...] listening utilized Taken 05/08/20231999 by Alivia Kauffman car supplier/Support System Care: self-care encouraged support provided Problem: [...] Transfer from another hospital Location: admitted from [facility] Reason for Hospitalization: Critical aortic stenosis, [...] 180 days) Any patient receiving care in [place] must abide by [place] law. The hierarchy [...] as: [address] [facility] [place] [facility] [place] [address] Social & Family Supports: All names listed [...] / Secondary Insurance: [facility] ONLY if patient has Medicare A&B - Does this patient have secondary insurance?: Yes ; Prescription Coverage: Yes Preferred Pharmacy: updated to [facility] in [facility] [place] Status: Patient is a : No Primary Care Provider confirmed: Magdalena Acosta MD [phone] Patient/Caregiver Goals of Treatment: Potential Needs for [...] transition of care planning. Alie Bradshaw RN, Pager-[phone] * Plan of Care - Emily Lucero RN - 05/08/2023 2:54 PM EDT OUTCOME EVALUATION NOTE: OUTCOME SUMMARY: Pt arrived from [facility]. A&O, no c/o pain or SOB. [...] 9:00 AM EDT Laboratory Appointment Lab at [facility] Hematology Oncology [address] [place] [address] 05/12/2024 10:00 AM EDT Office Visit Hematology [place] [address] Markel Borjas MD [facility] [address] HEMATOLOGY [place] [address] 03/01/2025 4:15 PM EDT Office Visit Dermatology at [address] [address] Marek Bonilla MD [address], [place] [address] Scheduled Referrals Name Type Priority Associated Diagnoses [...] Heart Cath W/Inj L Ventriculography, Img S&I ([id number]) 05/12/2023 7:37 AM EDT Aortic valve stenosis, [...] EST Narrative 07/08/2023 12:26 PM EST [address] [place] [address] ? Echocardiogram Report Name: PURNIMA THACKER ?Study Date: 07/08/2023 10:31 AMBP: 118/60 mmHg ? Patient Location: 4A : 1955 ? Height: 155 cm ? Account: [id number] Age: 67 yrs ? Weight: 74 kg Gender: Female ?BSA: 1.7 m2 Ordering Physician: ALIRIO HUDSON Referring Physician: VINOD JUÁREZ Performed By: Felicia Norris RODOLFO Reason For Study: S/P TAVR Exam Location: [facility]. Interpretation Summary Left ventricular systolic function is [...] no significant change (post-procedure). Procedure Limited - 00881. Doppler - 56578. Color Doppler - 77542. Satisfactory quality. This study is limited because [...] Note Lee Kincaid MD - 07/08/2023 [address] [place] [address] Echocardiogram Report Name: PURNIMA THACKER Study Date: 12/07/528144:31 AMBP: 118/60 mmHg Patient Location: : 1955 Height: 155 cm Account: [id number] Age: 67 yrs Weight: 74 kg Gender: Female BSA: 1.7 m2 Ordering Physician: ALIRIO HUDSON Referring Physician: VINOD JUÁREZ Performed By: Felicia Norris RDCS Reason For Study: S/P TAVR Exam Location: [facility]. Interpretation Summary Left ventricular systolic function is [...] is nosignificant change (post-procedure). Procedure Limited - 88163. Doppler - 78027. Color Doppler - 36477. Satisfactoryquality. This study is limited because of [...] CHEMISTRY ORDERABLE S [facility] [place] [address] * (ABNORMAL) Basic Metabolic Panel (non-fasting) (05/22/2023 [...] Carbon Dioxide 23 22 - 31 mmol/L [facility] Anion Gap 11 5 [...] Lab Mara Maggie ANURAG CHEMISTRY ORDERABL ES [facility] [place] [address] * (ABNORMAL) Basic Metabolic Panel (non-fasting) (05/21/2023 [...] Narrative Resulting Agency Comment Spec In Lab [facility] TESTER OPERATOR HELPER CHEMISTRY ORDERABL ES Performing Organization Address City/[facility]/ZIP Co de Phone Number [facility] [place] [address] * Lavender Tube HOLD (05/20/2023 2:52 AM EDT) Lavender Hold Sample in lab. [facility] Blood Venous Draw / Unknown 05/20/2023 2:52 AM EDT 05/20/2023 3:04 AM EDT [facility] TESTER OPERATOR HELPER HEMATOLOGY ORDERAB LES Performing Organization Address City/[facility]/ZIP Co de Phone Number [facility] [place] [address] * (ABNORMAL) Basic Metabolic Panel (non-fasting) (05/20/2023 2:52 AM EDT) Glucose 152 65 - 199 mg/dL [facility] Comment:Diabetes: >=200 mg/d L plus symptoms Blood Urea Nitrogen 33(H) 8 - 18 mg/dL [facility] Creatinine 0.82 0.70 - 1.20 mg/dL [facility] [...] Lab Mara Serrano APRN CHEMISTRY ORDERABL ES [facility] [place] [address] * (ABNORMAL) Potassium (05/20/2023 2:52 AM EDT) Potassium 3.4(L) 3.5 - 5.0 mmol/L [facility] [...] Agency Comment Spec In Lab Mara Serrano TESTER OPERATOR HELPER CHEMISTRY ORDERABL ES [facility] [place] [address] * XR Chest PA & Lateral (Generic) [...] questions please contact the health animal care technician that requested your imaging first. ? Narrative [...] have questions please contactthe health animal care technician that requested your imaging first. Electronically signed by: Chyna Johnson MD, [facility]([phone]), at 05/19/2023 2:19 PM Alirio Hudson MD IMG DX ORDERABLES * (ABNORMAL) Basic Metabolic Panel (non-fasting) (05/19/2023 5:49 AM EDT) Glucose 93 65 - 199 mg/dL [facility] Comment:Diabetes: >=200 mg/d L plus symptoms Blood Urea Nitrogen 45(H) 8 - 18 mg/dL [facility] Creatinine 1.02 0.70 - 1.20 mg/dL [facility] Sodium 138 135 - [...] Resulting Agency Comment Spec In Lab [facility] ES Performing Organization Address City/State/[facility] Co de Phone Number [facility] [place] [address] * IR Chest Tube Placement Right (05/18/2023 [...] Panel (non-fasting) (05/18/2023 2:54 AM EDT) Pathologist [facility] Glucose 95 65 - 199 mg/dL [facility] Comment:Diabetes: >=200 mg/d L plus symptoms Blood Urea Nitrogen 71(H) 8 - 18 mg/dL [facility] Comment:result rechecked-[facility] Creatinine 1.64(H) 0.70 - 1.20 mg/dL [facility] Comment:result rechecked-[facility] Sodium 137 135 - 145 mmol/L [facility] [...] Agency Comment Spec In Lab Marakatherine Serrano TESTER OPERATOR HELPER CHEMISTRY ORDERABL ES [facility] [place] [address] * XR Chest PA & Lateral (Generic) [...] questions please contact the health animal care technician that requested your imaging first. ? Electronically signed by: Ghassan Reyes MD, [facility] ??([phone]), at 05/17/2023 11:46 AM Narrative 05/17/2023 11:46 [...] have questions please contactthe health animal care technician that requested your imaging first. Electronically signed by: Ghassan Reyes MD, [facility]([phone]), at 05/17/2023 11:46 AM Alirio Hudson MD IMG DX ORDERABLES * (ABNORMAL) Comprehensive metabolic panel (non-fasting) (05/17/2023 4:35 AM EDT) Glucose 89 65 - 199 mg/dL [facility] Comment:Diabetes: >=200 mg/d L plus symptoms Blood Urea Nitrogen 97(H) 8 - 18 mg/dL [facility] Creatinine 2.97(H) 0.70 - 1.20 [...] MD CHEMISTRY ORDERABLE S Performing Organization Address [facility] Co de Phone Number [facility] [place] [address] * Potassium (05/16/2023 11:15 PM EDT) Potassium [...] MD CHEMISTRY ORDERABLE S Performing Organization Address [facility] Co de Phone Number [facility] [place] [address] * Magnesium (05/16/2023 5:22 PM EDT) Magnesium 0.96 0.69 - 1.07 mmol/L [facility] Blood 05/16/2023 5:22 PM EDT 05/16/2023 5:27 PM EDT Narrative Resulting Agency Comment Spec In Lab Alirio Hudson MD CHEMISTRY ORDERABLE S Performing Organization Address [facility] Co de Phone Number [facility] [place] [address] * (ABNORMAL) Basic Metabolic Panel (non-fasting) (05/16/2023 5:22 PM EDT) Glucose 106 65 - 199 mg/dL [facility] Comment:Diabetes: >=200 mg/d L plus symptoms Blood Urea Nitrogen 103(H) 8 - 18 mg/dL [facility] Creatinine 3.91(H) 0.70 - 1.20 mg/dL [facility] Comment:result rechecked-imm Sodium 132(L) 135 [...] mmol/L [facility] Anion Gap 18(H) 5 - 15 mmol/L [facility] Calcium 9.7 8.5 - 10.5 mg/dL [facility] Est Glomerular Filtration Rate 12(L) >=60 mL/min/1. 73 m?? [facility] CHEMISTRY ORDERABLE S [facility] [place] [address] * (ABNORMAL) Potassium (05/16/2023 11:43 AM EDT) [...] - [facility]/ZIP Co de Phone Number [facility] [place] [address] * (ABNORMAL) Ferritin (05/16/2023 4:41 AM EDT) Ferritin 1,813(H) 30 - 400 ng/mL [facility] Comment: Pediatric reference ranges not verified at [facility], interpret with caution. Reference ranges for females greater than 50 years of age approach values for men, i.e., 30-400 ng/mL. Blood 05/16/2023 4:41 AM EDT 05/16/2023 4:54 AM EDT Narrative Resulting Agency Comment Spec In Lab Kristopher Ayoub MD CHEMISTRY ORDERABLES Performing Organization Address City/[facility]/ZIP Co de Phone Number [facility] [place] [address] * (ABNORMAL) PTH (05/16/2023 4:41 AM EDT) [facility] Parathyroid Hormone 120(H) 15 - 65 pg/mL [facility] Blood 05/16/2023 4:41 AM EDT 05/16/2023 4:54 AM EDT Narrative Resulting Agency Comment Spec In Lab Kristopher Ayoub MD CHEMISTRY ORDERABLES Performing Organization Address City/[facility]/ZIP Co de Phone Number [facility] [place] [address] * Vitamin D, 25-Hydroxy (05/16/2023 4:41 AM EDT) [facility] Vitamin D Total 25 OH 33 21 - 100 ng/mL [facility] Vit D Interp Sufficient [facility] Blood 05/16/2023 4:41 AM EDT 05/16/2023 4:54 AM EDT Narrative Resulting Agency Comment Spec In Lab Kristopher Ayoub MD CHEMISTRY ORDERABLES [facility] [place] [address] * (ABNORMAL) Blood Gas Venous ([facility]) (05/16/2023 [...] [facility] Oxyhemoglobin, Venous 92.8 % [facility] Carboxyhemoglob in, Venous 0.1 % [facility] Comment: Nonsmokers: 0.5-1.5% COHB Smokers: Variable, but usually less than 10% Toxic: 20-30% COHB Lethal: Greater than 60% COHB Methemoglobin, Venous 0.3 <=1.5 % [facility] Na Whole Blood 130(L) 135 - 145 mmol/L [facility] K Whole Blood 3.7 [...] Whole Blood 95(L) 98 - 107 mmol/L [facility] Gluc Whole Bld 82 65 - 199 mg/dL [facility] Comment:Diabetes: >=200 mg/d L plus symptoms Lactate WB 1.1 0.5 - 2.2 mmol/L [facility] Blood Gas Source Venous [facility] Blood Venous Draw / Unknown 05/16/2023 4:22 AM EDT 05/16/2023 4:31 AM EDT Narrative Resulting Agency Comment Spec In Lab Bonita [place] [address] * (ABNORMAL) Differential, Automated (05/16/2023 4:20 AM EDT) Neutrophil % 84.1 % [facility] Neutrophil Absolute 6.22(H) 1.70 - 6.10 x10(3)/mc L [facility] Lymph % 5.8 % [facility] Lymphocytes Abs 0.4(L) 0.9 - 3.2 x10(3)/mc L [facility] Monocyte % 8.8 % [facility] IT[facility]OR[facility] Monocyte Abs 0.6 0.3 - 0.9 x10(3)/mc L [facility] Eos % 0.4 % [facility] Eosinophils Abs 0.0 0.0 - 0.4 x10(3)/mc L [facility] Basophil % 0.0 % [facility] Baso Absolute 0.0 0.0 - [...] MD HEMATOLOGY ORDER JODIE Performing Organization Address City/[facility]/[place] [address] * (ABNORMAL) Hemogram (05/16/2023 4:20 AM EDT) [...] variation 12.9 11.5 - 14.1 % [facility] Mean Platelet Volume 11.3 7.6 - 12.9 fL [facility] NRBC% auto 0.7 % [facility] NRBC Absolute 0.050(H) 0.000 - 0.000 x10(3)/ L [facility] Blood 05/16/2023 4:20 AM EDT 05/16/2023 4:29 AM EDT Narrative Resulting Agency Comment Spec In Lab James Agustin MD HEMATOLOGY ORDER JODIE [facility] [place] [address] * (ABNORMAL) Basic Metabolic Panel (non-fasting) (05/16/2023 [...] CHEMISTRY ORDERABLE S [facility] [place] [address] * (ABNORMAL) Iron and TIBC (05/16/2023 4:20 AM EDT) Iron 31 30 - 150 mcg/dL [facility] TIBC 259 250 - 450 mcg/dL [facility] Iron Saturation 12(L) 20 - 50 % [facility] Blood 05/16/2023 4:20 AM EDT 05/16/2023 4:29 AM EDT Narrative Resulting Agency Comment Spec In Lab Kristopher Ayoub MD CHEMISTRY ORDERABLES [facility] [place] [address] * (ABNORMAL) Basic Metabolic Panel (non-fasting) (05/15/2023 [...] - [facility]/ZIP Co de Phone Number [facility] [place] [address] * (ABNORMAL) Hemogram (05/15/2023 12:50 AM EDT) [...] [facility] Mean Cell Hemoglobin Concentration 35.0 31.7 - 35.0 g/dL [facility] Platelet 109(L) 145 - 357 x10(3)/mc L [facility] RDW Standard Deviation 43.6 37.0 - 46.0 fL [facility] RDW coefficient of variation 12.9 11.5 - 14.1 % [facility] Mean Platelet Volume 10.4 7.6 - 12.9 fL [facility] NRBC% auto 2.1 % [facility] IT[facility] NRBC Absolute 0.190(H) 0.000 - 0.000 x10(3)/mc L [facility] Blood 05/15/2023 12:5 0 AM EDT 05/15/2023 12:52 AM EDT Narrative Resulting Agency Comment Spec In Lab Alirio Hudson MD HEMATOLOGY ORDERABL ES Performing Organization Address [facility] Co de Phone Number [facility] [place] [address] * (ABNORMAL) BLOOD GAS 2 VENOUS (05/15/2023 [...] 60% COHB Methemoglobin, Venous 0.6 <=1.5 % [facility] Na Whole Blood 136 135 - 145 mmol/L [facility] K Whole Blood 3.7 3.5 - 5.0 mmol/L [facility] Comment: Please note: Patients with WBC >100,000 may have falsely elevated Potassium levels. Contact the Clinical Chemistry Laboratory if there are any questions. ICa Whole Blood 1.12(L) 1.15 - 1.33 mmol/L [facility] Comment: Note: ??Total bilirubin higher than 20 mg/dL may lead to falsely low ionized calcium. CL Whole Blood 95(L) 98 - 107 mmol/L [facility] Gluc Whole Bld 101 65 - 199 mg/dL [facility] Comment:Diabetes: >=200 mg/d L plus symptoms Lactate WB 1.3 0.5 - 2.2 mmol/L [facility] Flow, Mike 1.0 LPM [facility] Blood Gas Source Venous [facility] Blood 05/15/2023 12:4 9 AM EDT 05/15/2023 12:49 AM EDT Alirio Hudson MD POINT OF CARE TEST ORDERABLES [facility] [place] [address] * US Retroperitoneal Complete (05/14/2023 [...] PM Electronically signed by: Hayden Robledo MD, [facility] ([phone]), at 05/14/2023 4:32 PM Thank you for letting us participate in the care of this patient. If you are a health care provider and have any questions regarding this report, please contact the number above. For patients who have questions, please contact the health animal care technician that requested your imaging first. ? Hayden Robledo, Staff Physician Electronically Signed Final Report ?? 05/14/2023 04:39 pm Narrative 05/14/2023 4:39 PM EDT Renal ? (Signed Final 05/14/2023 04:39 pm) PATIENT INFO: ID #: ? [id number] ?: ??[birth year] (67 yrs)(F) Name: ? PURNIMA THACKER ?Visit Date: 05/14/2023 03:44 pm PERFORMED BY: Attending: ?Meena CULP, Hayden Stafford Resident: ? Nell CULP, Anand August Performed By: ? Consuelo Tello RDMS Referred By: ?ALIRIO HUDSON Location: ? [place] SERVICE(S) PROVIDED: URETRO - Retroperitoneal Complete - [id number] ? [id number] INDICATIONS: EVANS COMPARISON: CT: Abdomen/Pelvis 05/11/23 RIGHT [...] 05/14/2023 04:39 pm) PATIENT INFO: ID #: [id number] : [birth year] (67 yrs)(F) Name: PURNIMA THACKER Visit Date: 05/14/2023 03:44 pm PERFORMED BY: Attending: Hayden Robledo MD Resident: Anand Camejo MD Performed By: Consuelo Tello RDMS Referred By: ALIRIO HUDSON Location: [facility] SERVICE(S) PROVIDED: URETRO - Retroperitoneal Complete - [id number] INDICATIONS: EVANS COMPARISON: CT: Abdomen/Pelvis 05/11/23 RIGHT [...] PM Electronically signed by: Hayden Robledo MD, [facility] ([phone]), at 05/14/2023 4:32 PM Thank you for letting us participate in the care of this patient. If you are a health care provider and have any questions regarding this report, please contact the number above. For patients who have questions, please contact the health animal care technician that requested your imaging first. Hayden Robledo, [...] MD CHEMISTRY ORDERABLE S Performing Organization Address [facility] Co de Phone Number [facility] [place] [address] * (ABNORMAL) Uric acid (05/14/2023 3:17 PM EDT) Uric Acid 14.9(H) 2.5 - 6.5 mg/dL [facility] Blood 05/14/2023 3:17 PM EDT 05/14/2023 3:31 PM EDT Narrative Resulting Agency Comment Spec In Lab Alirio Hudson MD CHEMISTRY ORDERABLE S Performing Organization Address [facility] [place] [address] * (ABNORMAL) Osmolality (05/14/2023 3:17 PM EDT) Osmolality 311(H) 275 - 295 mOsm/kg [facility] Blood 05/14/2023 3:17 PM EDT 05/14/2023 3:31 PM EDT Narrative Resulting Agency Comment Spec In Lab Alirio Hudson MD [place] [address] * (ABNORMAL) Differential, Automated (05/14/2023 1:10 AM EDT) Pathologist [facility] Neutrophil % 87.2 % [facility] Neutrophil Absolute 9.74(H) 1.70 - 6.10 x10(3)/mc L [facility] Lymph % 3.9 % [facility] Lymphocytes Abs 0.4(L) 0.9 - 3.2 x10(3)/mc L [facility] Monocyte % 7.9 % [facility] Monocyte Abs 0.9 0.3 - 0.9 x10(3)/mc L [facility] Eos % 0.0 % [facility] Eosinophils Abs 0.0 0.0 - 0.4 x10(3)/mc L [facility] Basophil % 0.1 % [facility] Baso Absolute 0.0 0.0 - [...] Absolute 0.10(H) 0.00 - 0.04 x10(3)/mc L [facility] Blood 05/14/2023 1:10 AM EDT 05/14/2023 1:24 AM EDT Narrative Resulting Agency Comment Spec In Lab Bonita TOBAR HEMATOLOGY ORDERABLE S [facility] [place] [address] * (ABNORMAL) Hemogram (05/14/2023 1:10 AM EDT) [...] Concentration 35.5(H) 31.7 - 35.0 g/dL [facility] Platelet 112(L) 145 - 357 x10(3)/mc L [facility] RDW Standard Deviation 41.4 37.0 - 46.0 fL [facility] RDW coefficient of variation 12.5 11.5 - 14.1 % [facility] Mean Platelet Volume 10.4 7.6 - 12.9 fL [facility] NRBC% auto 1.5 % [facility]OR[facility] NRBC Absolute 0.170(H) 0.000 - 0.000 x10(3)/mc L [facility] Blood 05/14/2023 1:10 AM EDT 05/14/2023 1:24 AM EDT Narrative Resulting Agency Comment Spec In Lab Bonita TOBAR HEMATOLOGY ORDERABLE S [facility] [place] [address] * (ABNORMAL) Comprehensive metabolic panel (non-fasting) (05/14/2023 1:10 AM EDT) Glucose 120 65 - 199 mg/dL [facility] [...] 15 mmol/L [facility] Calcium 8.5 8.5 - 10.5 [...] MD CHEMISTRY ORDERABLE S Performing Organization Address [facility] Co de Phone Number [facility] [place] [address] * APTT (05/13/2023 10:15 AM EDT) Partial [...] ORDERABL ES Performing Organization Address [facility] Co de Phone Number [facility] [place] [address] * (ABNORMAL) Prothrombin Time (05/13/2023 10:15 AM EDT) Prothrombin Time 14.6(H) 9.4 - 12.5 sec [facility] International Normalization Ratio 1.3 [facility] [...] MD HEMATOLOGY ORDERABL ES Performing Organization Address [facility] Co de Phone Number [facility] [place] [address] * EKG 12 Lead (05/13/2023 9:22 AM EDT) Pathologist [facility] Ventricular rate 92 BPM MUSE SYSTEM Atrial Rate 92 BPM MUSE SYSTEM P-R Interval 140 ms MUSE SYSTEM QRS Duration 104 ms MUSE SYSTEM Q-T Interval 384 ms MUSE SYSTEM QTC Calculated (Bezet) 474 ms MUSE SYSTEM Calculated P Grant 33 degrees MUSE SYSTEM Calculated R Grant 41 degrees MUSE SYSTEM Calculated T Grant -35 degrees MUSE SYSTEM INTERPRETATION Sinus rhythm with frequent Premature ventricular complexes Septal infarct , age undetermined ST & T wave abnormality, consider lateral ischemia Abnormal ECG When compared with ECG of 12-MAY-2023 10:10, Premature ventricular complexes are now Present I personally reviewed the tracing and edited the fellows interpretation Confirmed by fellow MD Anitha, Carissa ([id number]) on 05/13/2023 3:25:30 PM Confirmed by Maxx Best ([id number]) on 05/13/2023 8:30:56 PM MUSE SYSTEM 05/13/2023 9:22 AM EDT 05/13/2023 8:30 PM EDT Alirio Hudson MD ECG ORDERABLES MUSE SYSTEM * (ABNORMAL) Differential, Automated (05/13/2023 1:15 AM EDT) [facility] Neutrophil % 88.1 % [facility] Neutrophil Absolute 7.62(H) 1.70 - 6.10 x10(3)/mc L [facility] Lymph % 3.1 % [facility] Lymphocytes Abs 0.3(L) 0.9 - 3.2 x10(3)/mc L [facility] Monocyte % 7.9 % [facility] Monocyte Abs 0.7 0.3 - 0.9 x10(3)/mc L [facility] Eos % 0.0 % [facility] Eosinophils Abs 0.0 0.0 - 0.4 x10(3)/mc L [facility] Basophil % 0.1 % [facility] Baso Absolute 0.0 0.0 - [...] HEMATOLOGY ORDERABLE S [facility] [place] [address] * (ABNORMAL) Hemogram (05/13/2023 1:15 AM EDT) White Blood Cell 8.6 4.0 - 9.5 x10(3)/[facility] LABORATORY Red Blood Cell 2.37(L) 4.00 - 5.21 x10(6)/[facility] LABORATORY Hemoglobin 7.8(L) 11.7 - 15.5 g/dL [facility] Hematocrit 22.2(L) 35.7 - 45.8 % [facility] Mean Cell Volume 93.7 82.6 - 94.4 fL [facility] Mean Cell Hemoglobin 32.9(H) 27.1 - 32.0 pg [facility] Mean Cell Hemoglobin Concentration 35.1(H) 31.7 - 35.0 g/dL [facility] Platelet 130(L) 145 - 357 x10(3)/[facility] LABORATORY RDW Standard Deviation 41.7 37.0 - 46.0 fL [facility] RDW coefficient of variation 12.5 11.5 - 14.1 % [facility] Mean Platelet Volume 10.2 7.6 - 12.9 fL [facility] NRBC% auto 0.5 % [facility] ITAL LABORATORY NRBC Absolute 0.040(H) 0.000 - 0.000 x10(3)/ L [facility] Blood 05/13/2023 1:15 AM EDT 05/13/2023 1:29 AM EDT Narrative Resulting Agency Comment Spec In Lab Lorri TOBAR HEMATOLOGY ORDERABLE S Performing Organization Address City/[facility]/ZIP Co de Phone Number [facility] [place] [address] * (ABNORMAL) Hepatic Function Panel (05/13/2023 1:15 AM EDT) Protein, Total 5.5(L) 6.1 - 8.0 g/dL [facility] Albumin 3.0(L) 3.2 - 5.2 g/dL [facility] Aspartate Aminotransferase 792(H) 0 - 30 unit/L [facility] Alanine Aminotransferase 903(H) 0 [...] MD CHEMISTRY ORDERABLE S Performing Organization Address [facility] Co de Phone Number [facility] [place] [address] * (ABNORMAL) Basic Metabolic Panel (non-fasting) (05/13/2023 1:15 AM EDT) Glucose 107 65 - 199 mg/dL [facility] Comment:Diabetes: >=200 mg/d L plus symptoms Blood Urea Nitrogen 82(H) 8 - 18 mg/dL [facility] Creatinine 3.15(H) 0.70 - 1.20 mg/dL [facility] Comment:result rechecked-OG Sodium 132(L) [...] CHEMISTRY ORDERABLE S [facility] [place] [address] * (ABNORMAL) BLOOD GAS 2 ARTERIAL (05/12/2023 [...] Whole Blood 129(L) 135 - 145 mmol/L [facility] K Whole Blood 3.8 [...] Blood 96(L) 98 - 107 mmol/L [facility] Gluc Whole Bld 178 65 - 199 mg/dL [facility] Comment:Diabetes: >=200 mg/d L plus symptoms. Lactate WB 1.5 0.5 - 2.2 mmol/L [facility] FIO2 Art 40 % [facility] PF Ratio Art 252 [facility] Blood 05/12/2023 3:57 PM EDT 05/12/2023 3:57 PM EDT Alirio Hudson MD POINT OF CARE TEST ORDERABLES Performing Organization Address City/State/[facility] Co de Phone Number [facility] [place] [address] * (ABNORMAL) Coox2 (05/12/2023 2:25 PM EDT) pO2, Coox 37 mmHg [facility] Hgb Blood Gas 9.5(L) 11.7 - 15.5 g/dL [facility] Oxyhemoglobin, Coox 59.9 % [facility] Carboxyhemoglo bin, Coox 0.3 % [facility] Comment: Nonsmokers: 0.5-1.5% COHB Smokers: Variable, but usually less than 10% Toxic: 20-30% COHB Lethal: Greater than 60% COHB Methemoglobin, Coox 0.7 <=1.5 % [facility] Source Coox Mixed Venous [facility] Blood 05/12/2023 2:25 PM EDT 05/12/2023 2:25 PM EDT Alirio Hudson MD POINT OF CARE TEST ORDERABLES [facility] [address] [place] [address] * (ABNORMAL) BLOOD GAS 2 ARTERIAL (05/12/2023 [...] Whole Blood 95(L) 98 - 107 mmol/L [facility] Gluc Whole Bld 168 65 - 199 mg/dL [facility] Comment:Diabetes: >=200 mg/d L plus symptoms. Lactate WB 1.8 0.5 - 2.2 mmol/L [facility] FIO2 Art 40 % [facility] PF Ratio Art 255 [facility] SPITAL LABORAT[facility] Blood 05/12/2023 2:23 PM EDT 05/12/2023 2:23 PM EDT Alirio Hudson MD POINT OF CARE TEST ORDERABLES [facility] [place] [address] * (ABNORMAL) Troponin (05/12/2023 2:05 PM EDT) [...] in the [facility] Laboratory Test Catalog Troponin - [facility] Laboratory Test Catalog Reference: Fourth Vidor Definition of Myocardial Infarction. Journal of the [place] [employer] 2018;72:6118-4115 Blood 05/12/2023 2:05 PM EDT 05/12/2023 2:14 PM EDT Narrative Resulting Agency Comment Spec In Lab Alirio Hudson MD CHEMISTRY ORDERABLE S Performing Organization Address City/[facility]/ZIP Co de Phone Number [facility] [place] [address] * (ABNORMAL) Hemoglobin (05/12/2023 2:05 PM EDT) Hemoglobin 8.5(L) 11.7 - 15.5 g/dL [facility] Blood 05/12/2023 2:05 PM EDT 05/12/2023 2:14 PM EDT Narrative Resulting Agency Comment Spec In Lab Alirio Hudson MD HEMATOLOGY ORDERABL ES Performing Organization Address [facility] Co de Phone Number [facility] [place] [address] * Potassium (05/12/2023 2:05 PM EDT) Potassium [...] MD CHEMISTRY ORDERABLE S Performing Organization Address [facility] Co de Phone Number [facility] [place] [address] * (ABNORMAL) BLOOD GAS 2 ARTERIAL (05/12/2023 11:05 AM EDT) pH, Arterial 7.34(L) 7.35 - 7.45 [facility] PCO2, Arterial 42 35 [...] Whole Blood 131(L) 135 - 145 mmol/L [facility] Blood 96(L) 98 - 107 mmol/L [facility] Gluc Whole Bld 152 65 - 199 mg/dL [facility] Comment:Diabetes: >=200 mg/d L plus symptoms. Lactate WB 2.8(H) 0.5 - 2.2 mmol/L [facility] FIO2 Art 40 % [facility] PF Ratio Art 182 [facility] SP[facility]OR[facility] Blood 05/12/2023 11:0 5 AM EDT 05/12/2023 11:05 AM EDT Alirio Hudson MD POINT OF CARE TEST ORDERABLES [facility] [place] [address] * (ABNORMAL) BLOOD GAS 2 ARTERIAL (05/12/2023 10:14 AM EDT) pH, Arterial 7.18(Criti gabrielle) 7.35 - 7.45 [facility] Comment:Noted by instrument designer. PCO2, Arterial 45 35 - 45 mmHg [facility] PO2, Arterial 186(H) 85 - 104 mmHg [facility] Bicarbonate, Arterial 16.2(L) 20.0 - 26.0 mmol/L [facility] Base Excess, Arterial -12.2(L) -3.0 - 3.0 mmol/L [facility] Hgb Blood Gas 10.0(L) 11.7 - 15.5 g/dL [facility] Oxyhemoglobin, Arterial 97.0 94.0 - 97.0 % [facility] Carboxyhemoglob in, Arterial 0.2 % [facility] Comment: Nonsmokers: 0.5-1.5% COHB Smokers: Variable, but usually less than 10% Toxic: 20-30% COHB Lethal: Greater than 60% COHB Methemoglobin, Arterial 0.9 <=1.5 % [facility] Na Whole Blood 129(L) 135 - 145 mmol/L [facility] K Whole Blood 3.6 [...] Whole Blood 97(L) 98 - 107 mmol/L [facility] Gluc Whole Bld 161 65 - 199 mg/dL [facility] Comment:Diabetes: >=200 mg/d L plus symptoms. Lactate WB 3.3(H) 0.5 - 2.2 mmol/L [facility] FIO2 Art 100 % [facility] PF Ratio Art 186 [facility] Blood 05/12/2023 10:1 4 AM EDT 05/12/2023 10:14 AM EDT Alirio Hudson MD POINT OF CARE TEST ORDERABLES [facility] [place] [address] * EKG 12 Lead (05/12/2023 10:10 AM EDT) Ventricular rate 116 BPM MUSE SYSTEM Atrial Rate 116 BPM MUSE SYSTEM P-R Interval 158 ms MUSE SYSTEM QRS Duration 114 ms MUSE SYSTEM Q-T Interval 348 ms MUSE SYSTEM QTC Calculated (Bezet) 483 ms MUSE SYSTEM Calculated P Grant 37 degrees MUSE SYSTEM Calculated R Grant 31 degrees MUSE SYSTEM Calculated T Grant -138 degrees MUSE SYSTEM INTERPRETATION Sinus tachycardia with intermittent aberrant ventricular conduction Possible Left atrial enlargement Incomplete left bundle block Left ventricular hypertrophy with repolarization abnormality ( Sokolow-Orozco , [place] product ) ST & T wave abnormality in Inferolateral leads Abnormal ECG When compared with ECG of 10-MAY-2023 13:16, ST & T wave abnormality is more pronounced in inferolateral leads I personally reviewed the tracing and edited the fellows interpretation Confirmed by fellow MD Anuja, Jim ([id number]) on 05/12/2023 1:04:20 PM Confirmed by MD Mono, Eleni ([id number]) on 05/12/2023 9:28:34 PM MUSE SYSTEM 05/12/2023 [...] questions please contact the health animal care technician that requested your imaging first. ? Electronically signed by: Chyna Johnson MD, [facility] ??([phone]), at 05/12/2023 10:08 AM Narrative 05/12/2023 10:08 AM EDT EXAMINATION: XR CHEST ONE VIEW CLINICAL HISTORY: Post TAVR TECHNIQUE: 1 view of the chest COMPARISON: Chest radiograph from earlier today FINDINGS: Interval placement of endotracheal tube with tip terminating 2 cm above the shira. Interval placement of enteric tube projecting along the expected course of the esophagus and outside the zkhrv-zx-yvsu. Interval retraction of right IJ approach pulmonary [...] expected course ofthe esophagus and outside the ldcqn-xw-xcdw. Interval retraction of right IJ approach pulmonary [...] have questions please contactthe health animal care technician that requested your imaging first. Electronically signed by: Chyna Johnson MD, [facility]([phone]), at 05/12/2023 10:08 AM Alirio Hudson MD [...] 1955 ? Height: 154 cm ? Account: [id number] Age: 67 yrs ? Weight: 75 kg Gender: Female ?BSA: 1.7 m2 Ordering Physician: RADHA HOLLINS Referring Physician: RADHA HOLLINS Performed By: Dilma Bee RDCS Reason For Study: Guidance for TAVR procedure Exam Location: [facility]. Interpretation Summary PRE TAVR: There is severe [...] mL/m2. POST TAVR: Normal function of the yxrqa-ku-mesvu prosthesis. See below for hemodynamic parameters. Slight improvement in left and right ventricular systolic function. LVEF now 20-25%. No pericardial effusion. See report for additional findings. Procedure Limited - 32195. Doppler - 62627. Color Doppler - 07008. Left Ventricle Left ventricle is of normal [...] Date: 307:33 AMBP: 96/63 mmHg Patient Location: [address] : 1955 Height: 154 cm Account: [id number] Age: 67 yrs Weight: 75 kg Gender: Female BSA: 1.7 m2 Ordering Physician: RADHA HOLLINS Referring Physician: RADHA HOLLINS Performed By: Dilma Bee RDCS Reason For Study: Guidance for TAVR procedure Exam Location: [facility]. Interpretation Summary PRE TAVR: There is severe [...] 28mL/m2. POST TAVR: Normal function of the ogtet-fg-ribzi prosthesis. See belowfor hemodynamic parameters. Slight improvement in left and right ventricularsystolic function. LVEF now 20-25%. No pericardial effusion. See report for additional findings. Procedure Limited - 60148. Doppler - 53844. Color Doppler - 36622. Left Ventricle Left ventricle is of normal [...] Modality Other Narrative 05/12/2023 2:37 PM EDT ?[facility] ? Cardiac Catheterization/Intervention Report ? Patient Name: Kirstie, Purnima M. ? Procedure Date: 05/12/2023 ? A #: [id number] ? Primary Physician: Zachary, Antelmo N ? Case #: [id number] ? File Name: [id number] ? Catheterization Order Number: [id number] ? [facility] ? Final Report [place], [place] ? Patient Name: ? Purnima M. Kirstie ? ID#: ?[id number] ? : ?1955 ? Procedure Date: ? May 12, 2023 ? Case #: ? [id number] ? Room: ? 6 ? Case Physicians: ?Antelmo Sharma M.D. ?Start: ?08:03 ?Alirio Hudson M.D. ?Admission: ??05/08/2023 ?Lynda Mcgowan M.D. ? Discharge: ??05/22/2023 ?Fellow: ? Emad Adair Tejeda ? Referring Physician: ??Mario Alberto Chin M.D. ? Procedures: ?* Coronary Angiography ?* Left Heart Catheterization ?* Coronary Stent Insertion ?* Transcatheter Aortic Valve Replacement ?* Vascular Closure Device Deployment ?* Temporary Pacemaker Insertion In Data Management Specialist ?* Endotracheal Intubation By Non-Cath Physician [...] guide. ??A premounted 4.00 x 30 mm [place] Monona (MINNA) was ? deployed with a maximum [...] calculated STS risk score was 30.1%. A hwfjf-vh-xvqig ?procedure was performed on the pre-existing bioprosthetic stented ?prosthesis. The priority of the wylru-un-iymqa procedure was Elective. ?The procedure was performed [...] Lai 3 Ultra RESILIA 23 mm THV ([id number]/x=[id number]) transcatheter ?valve was inserted using standard technique. [...] may require ?modification of this regimen. Consult [facility] Interventional Cardiology for ?questions. ? Conclusions: ?* [...] regimen. ? Comments: ?Successful right transfemoral TAVR Hhssd-dm-Ckrba with a 23 mm Lai 3 ?THV. [...] Procedure Note Antelmo Sharma MD - 07/01/2023 [facility] Cardiac Catheterization/Intervention Report Patient Name: KirstiePurnima Procedure Date: 05/12/2023 A #: [id number] Primary Physician: Antelmo Sharma Case #: [id number] File Name: [id number] Catheterization Order Number: [id number] [facility] FinalReport [place], [place] Patient Name: Purnima Thacker ID#:[id number] :1955 Procedure Date: May 12, 2023 Case #: [id number] Room: 6 Case Physicians: Antelmo Sharma M.D. Start: 08:03 Alirio Hudson M.D. Admission:05/08/2023 Lynda Mcgowan M.D. Discharge:05/22/2023 Fellow: Rebekah Tejeda M.D. Referring Physician: Mario Alberto Chin M.D. Procedures: * Coronary Angiography * Left Heart Catheterization * Coronary Stent Insertion * Transcatheter Aortic Valve Replacement * Vascular Closure Device Deployment * Temporary Pacemaker Insertion In Data Management Specialist * Endotracheal Intubation By Non-Cath Physician [...] guide. A premounted 4.00 x 30 mm [place] Monona (MINNA) was deployed with a maximum inflation [...] calculated STS risk score was 30.1%. A eexzl-ut-dxynf procedure was performed on the pre-existing bioprosthetic stented prosthesis. The priority of the eaovg-ci-lisrf procedure wasElective. The procedure was performed under Moderate sedation performed byLynda Mcgowan M.D. (see anesthesia report for additional details). Alirio Hudson M.D. participated in the case (see Cardiac Surgery reportfor additional details). The TAVR sheath was a 14 Fr Corona eSheath Introducer and theaccess site was femoral. Rapid ventricular pacing was performed. An Corona Lai 3 Ultra RESILIA 23 mm THV (s/k=[id number])transcatheter valve was inserted using standard technique. The [...] situation mayrequire modification of this regimen. Consult [facility] Interventional Cardiologyfor questions. Conclusions: * Nonobstructive disease [...] this regimen. Comments: Successful right transfemoral TAVR Dfqfc-nz-Mbxvy with a 23 mmSapien 3 THV. We [...] 7.45 [facility] Comment:Critical value OKYamel C Lab. pCO2, POC 42 35 - 45 mmHg [facility] pO2, POC 260(H) 85 - 104 mmHg [facility] Base Excess, POC -11.0(L) -3.0 - 3.0 mmol/L [facility] Bicarbonate, POC 16.7(L) 20.0 - 26.0 mmol/L [facility] Sodium, POC 129(L) 135 - 145 mmol/L [facility] POC Potassium 3.8 3.5 - 5.0 mmol/L [facility] Ionized Calcium, POC 1.12(L) 1.15 - 1.33 mmol/L [facility] POC Hematocrit 23.0(L) 34.0 - 45.0 % [facility] POC Calc Hgb 7.8(L) 11.2 - 15.7 g/dL [facility] Comment:The calculation of h emoglobin from hematocrit assumes a normal MCHC. POC Bgas Loc CC Lab [facility] SPITAL LABORATORY Blood 05/12/2023 8:50 AM EDT 05/13/2023 12:00 PM EDT Alirio Hudson MD CHEMISTRY ORDERABLE S Performing Organization Address City/State/[facility] Co de Phone Number [facility] [place] [address] * (ABNORMAL) Point of Care Blood Gas Historical (05/12/2023 8:10 AM EDT) pH, POC 7.27(Crit ical) 7.35 - 7.45 [facility] Comment:Critical value OKYamel C Lab. pCO2, POC 37 35 - 45 mmHg [facility] pO2, POC 29(Critic al) 85 - 104 mmHg [facility] Comment:Critical value OK C C Lab. Base Excess, POC -10.0(L) -3.0 - 3.0 mmol/L [facility] Bicarbonate, POC 16.7(L) 20.0 - 26.0 mmol/L [facility] Sodium, POC 123(L) 135 - 145 mmol/L [facility] POC Potassium 4.0 3.5 - 5.0 mmol/L [facility] Ionized Calcium, POC 1.12(L) 1.15 - 1.33 mmol/L [facility] POC Hematocrit 27.0(L) 34.0 - 45.0 % [facility] POC Calc Hgb 9.2(L) 11.2 - 15.7 g/dL [facility] Comment:The calculation of h emoglobin from hematocrit assumes a normal MCHC. POC Bgas Loc CC Lab [facility] Blood 05/12/2023 8:10 AM EDT 05/13/2023 12:00 PM EDT Alirio Hudson MD CHEMISTRY ORDERABLE S Performing Organization Address City/[facility]/ZIP Co de Phone Number [facility] [place] [address] * (ABNORMAL) Lactate, whole blood, send to lab ([facility] (05/12/2023 7:00 AM EDT) Lactate WB 2.4(H) 0.5 - 2.2 mmol/L [facility] Blood 05/12/2023 7:00 AM EDT 05/12/2023 7:09 AM EDT Narrative Resulting Agency Comment Spec In Lab Radha Hollins MD CHEMISTRY ORDERABL ES Performing Organization Address [facility] Co de Phone Number [facility] [place] [address] * (ABNORMAL) Comprehensive metabolic panel (non-fasting) (05/12/2023 6:00 AM EDT) Glucose 167 65 - 199 mg/dL [facility] Comment:Diabetes: >=200 mg/d L plus symptoms Blood Urea Nitrogen 67(H) 8 - 18 mg/dL [facility] Creatinine 2.01(H) 0.70 - 1.20 mg/dL [facility] [...] Aminotransferase 1,435(H) 0 - 30 unit/L [facility] Alanine Aminotransferase 1,174(H) 0 - 30 unit/L [facility] Alkaline Phosphatase 100 35 - 105 unit/L [facility] Bilirubin, Total 0.9 0.2 - 1.3 mg/dL [facility] Est Glomerular Filtration Rate 27(L) >=60 mL/min/1. 73 m?? [facility] [...] CHEMISTRY ORDERABL ES [facility] [place] [address] * (ABNORMAL) Coox2 (05/12/2023 5:08 AM EDT) pO2, Coox 24 mmHg [facility] Hgb Blood Gas 10.4(L) 11.7 - 15.5 g/dL [facility] Oxyhemoglobin, Coox 30.7 % [facility] Carboxyhemoglo bin, Coox 0.3 % [facility] Comment: Nonsmokers: 0.5-1.5% COHB Smokers: Variable, but usually less than 10% Toxic: 20-30% COHB Lethal: Greater than 60% COHB Methemoglobin, Coox 0.8 <=1.5 % [facility] Source Coox Mixed Venous [facility] Blood 05/12/2023 5:08 AM EDT 05/12/2023 5:08 AM EDT Radha Hollins MD POINT OF CARE TEST ORDERABLES Performing Organization Address City/[facility] Co de Phone Number [facility] [place] [address] * (ABNORMAL) Coox2 (05/12/2023 3:21 AM EDT) pO2, Coox 25 mmHg [facility] Hgb Blood Gas 10.8(L) 11.7 - 15.5 g/dL [facility] Oxyhemoglobin, Coox 32.7 % [facility] Carboxyhemoglo bin, Coox 0.3 % [facility] Comment: Nonsmokers: 0.5-1.5% COHB Smokers: Variable, but usually less than 10% Toxic: 20-30% COHB Lethal: Greater than 60% COHB Methemoglobin, Coox 0.7 <=1.5 % [facility] Source Coox Mixed Venous [facility] Blood 05/12/2023 3:21 AM EDT 05/12/2023 3:21 AM EDT Radha Hollins MD POINT OF CARE TEST ORDERABLES Performing Organization Address City/[facility] Co de Phone Number [facility] [place] [address] * (ABNORMAL) BLOOD GAS 2 ARTERIAL (05/12/2023 3:18 AM EDT) pH, Arterial 7.34(L) 7.35 - 7.45 [facility] PCO2, Arterial 30(L) 35 - 45 mmHg [facility] PO2, Arterial 72(L) 85 - 104 mmHg [facility] Bicarbonate, Arterial 16.0(L) 20.0 - 26.0 mmol/L [facility] Base Excess, Arterial -9.8(L) -3.0 - 3.0 mmol/L [facility] Hgb Blood Gas 11.0(L) 11.7 - 15.5 g/dL [facility] Oxyhemoglobin, Arterial 89.8(L) 94.0 - 97.0 % [facility] Carboxyhemoglob in, Arterial 0.3 % [facility] Comment: Nonsmokers: 0.5-1.5% COHB Smokers: Variable, but usually less than 10% Toxic: 20-30% COHB Lethal: Greater than 60% COHB Methemoglobin, Arterial 0.7 <=1.5 % [facility] Na Whole Blood 131(L) 135 - 145 mmol/L [facility] K Whole Blood 4.2 [...] Whole Blood 100 98 - 107 mmol/L [facility] Gluc Whole Bld 160 65 - 199 mg/dL [facility] Comment:Diabetes: >=200 mg/d L plus symptoms. Lactate WB 2.7(H) 0.5 - 2.2 mmol/L [facility] Flow Art 5.0 LPM [facility] Blood 05/12/2023 3:18 AM EDT 05/12/2023 3:18 AM EDT Radha Hollins MD POINT OF CARE TEST ORDERABLES [facility] [place] [address] * (ABNORMAL) Coox2 (05/12/2023 1:14 AM EDT) pO2, Coox 28 mmHg [facility] Hgb Blood Gas 10.9(L) 11.7 - 15.5 g/dL [facility] Oxyhemoglobin, Coox 37.3 % [facility] Carboxyhemoglo bin, Coox 0.3 % [facility] Comment: Nonsmokers: 0.5-1.5% COHB Smokers: Variable, but usually less than 10% Toxic: 20-30% COHB Lethal: Greater than 60% COHB Methemoglobin, Coox 0.5 <=1.5 % [facility] Source Coox Mixed Venous [facility] Blood 05/12/2023 1:14 AM EDT 05/12/2023 1:14 AM EDT Radha Hollins MD POINT OF CARE TEST ORDERABLES [facility] [place] [address] * (ABNORMAL) BLOOD GAS 2 ARTERIAL (05/12/2023 [...] 60% COHB Methemoglobin, Arterial 0.6 <=1.5 % [facility] Na Whole Blood 131(L) 135 - 145 mmol/L [facility] K Whole Blood 4.2 3.5 [...] Whole Blood 99 98 - 107 mmol/L [facility] Gluc Whole Bld 132 65 - 199 mg/dL [facility] Comment:Diabetes: >=200 mg/d L plus symptoms. Lactate WB 2.7(H) 0.5 - 2.2 mmol/L [facility] Flow Art 5.0 LPM [facility] Blood 05/12/2023 1:06 AM EDT 05/12/2023 1:06 AM EDT Radha Hollins MD POINT OF CARE TEST ORDERABLES Performing Organization Address City/State/[facility] Co de Phone Number [facility] [address] * (ABNORMAL) Differential, Automated (05/12/2023 1:05 AM EDT) Neutrophil % 83.3 % [facility] Neutrophil Absolute 7.49(H) 1.70 - 6.10 x10(3)/mc L [facility] Lymph % 7.1 % [facility] Lymphocytes Abs 0.6(L) 0.9 - 3.2 x10(3)/mc L [facility] Monocyte % 8.9 % [facility] Monocyte Abs 0.8 0.3 - 0.9 x10(3)/mc L [facility] Eos % 0.0 % [facility] Eosinophils Abs 0.0 0.0 - 0.4 x10(3)/mc L [facility] Basophil % 0.1 % [facility] Baso Absolute 0.0 0.0 - [...] HEMATOLOGY ORDERABLE S [facility] [place] [address] * (ABNORMAL) Hemogram (05/12/2023 1:05 AM EDT) White Blood Cell 9.0 4.0 - 9.5 x10(3)/mc L [facility] Red Blood Cell 3.01(L) 4.00 - 5.21 x10(6)/ L [facility] Hemoglobin 9.8(L) [...] Volume 10.3 7.6 - 12.9 fL [facility] NRBC% auto 0.0 % [facility] ITAL LABORATORY NRBC Absolute 0.000 0.000 - 0.000 x10(3)/mc L [facility] Blood 05/12/2023 1:05 AM EDT 05/12/2023 1:15 AM EDT Narrative Resulting Agency Comment Spec In Lab Gianni Fletcher MD HEMATOLOGY ORDERABLE S [facility] [place] [address] * (ABNORMAL) Comprehensive metabolic panel (non-fasting) (05/12/2023 [...] Aspartate Aminotransferase 1,227(H) 0 - 30 unit/L [facility] Alanine Aminotransferase 1,097(H) 0 - 30 unit/L [facility] Alkaline Phosphatase 108(H) 35 [...] Lab Radha Hollins MD [place] [address] * XR Chest One View (05/12/2023 1:00 [...] questions please contact the health animal care technician that requested your imaging first. ? Electronically signed by: Will Rowe MD, [facility] ([phone]), at 05/12/2023 3:16 AM Narrative 05/12/2023 3:16 [...] have questions please contactthe health animal care technician that requested your imaging first. Radha Hollins MD IMG DX ORDERABLES * (ABNORMAL) Coox2 (05/12/2023 12:30 AM EDT) pO2, Coox 22 mmHg [facility] Hgb Blood Gas 10.9(L) 11.7 - 15.5 g/dL [facility] Oxyhemoglobin, Coox 25.1 % [facility] Carboxyhemoglo bin, Coox 0.3 % [facility] Comment: Nonsmokers: 0.5-1.5% COHB Smokers: Variable, but usually less than 10% Toxic: 20-30% COHB Lethal: Greater than 60% COHB Methemoglobin, Coox 1.4 <=1.5 % [facility] Source Coox Mixed Venous [facility] Blood 05/12/2023 12:3 0 AM EDT 05/12/2023 12:30 AM EDT Radha Hollins MD POINT OF CARE TEST ORDERABLES [facility] [place] [address] * XR Chest One View (05/11/2023 11:45 [...] questions please contact the health animal care technician that requested your imaging first. ? Electronically signed by: Will Rowe MD, [facility] ([phone]), at 05/11/2023 11:57 PM Narrative 05/11/2023 11:57 [...] have questions please contactthe health animal care technician that requested your imaging first. Electronically signed by: Will Rowe MD, [facility]([phone]), at 05/11/2023 11:57 PM Radha Hollins MD IMG DX ORDERABLES * (ABNORMAL) Lactate, whole blood, send to lab [place] (05/11/2023 7:40 PM EDT) Lactate WB 4.8(Critic al) 0.5 - 2.2 mmol/L [facility] Comment:Called by: IMM, Read back by: Magdalena Baires, Date/Time:05/11/23 19:54. Blood 05/11/2023 7:40 PM EDT 05/11/2023 7:49 PM EDT Narrative Resulting Agency Comment Spec In Lab Radha Hollins MD CHEMISTRY ORDERABL ES Performing Organization Address City/[facility]/ZIP Co de Phone Number [facility] [place] [address] * Urine culture (05/11/2023 7:22 PM EDT) [...] - GENE RAL ORDERABLES Performing Organization Address [facility]/ZIP Co de Phone Number [facility] [place] [address] * (ABNORMAL) Urinalysis Microscopic Exam (05/11/2023 7:22 [...] Agency Comment Spec In Lab Brody Kaplan TESTER OPERATOR HELPER URINE ORDERABLES [facility] [place] [address] * (ABNORMAL) Urinalysis with reflex Culture (05/11/2023 [...] Cloudy(A) Clear [facility] Specific [place] Urine Automated >=1.030(A) 1.005 - 1.030 [facility] Color, Urine Dipstick Yellow Yellow [facility] Reflex to Culture Yes [facility] Clean Catch Urine 05/11/2023 7:22 PM EDT 05/11/2023 7:31 PM EDT Narrative Resulting Agency Comment Spec In Lab Brody Kaplan TESTER OPERATOR HELPER URINE ORDERABLES [facility] [place] [address] * (ABNORMAL) pro-Brain Natriuretic Peptide (05/11/2023 7:11 PM EDT) NT-proBNP >35,000(H) <=124 pg/mL [facility] Blood 05/11/2023 7:11 PM EDT 05/11/2023 7:26 PM EDT Narrative Resulting Agency Comment Spec In Lab Radha Hollins MD CHEMISTRY ORDERABL ES Performing Organization Address City/[facility]/ZIP Co de Phone Number [facility] [place] [address] * (ABNORMAL) Lactate, whole blood, send to lab ([facility] (05/11/2023 2:47 PM EDT) Lactate WB 2.9(H) 0.5 - 2.2 mmol/L [facility] Blood 05/11/2023 2:47 PM EDT 05/11/2023 2:53 PM EDT Narrative Resulting Agency Comment Spec In Lab Juan Luis Gonzalez MD CHEMISTRY ORDERABLES Performing Organization Address [facility] Co de Phone Number [facility] [place] [address] * (ABNORMAL) CT Angiogram Abdomen & Pelvis [...] questions please contact the health animal care technician that requested your imaging first. ? Narrative [...] questions please contact the health animal care technician that requested your imaging first. ? Electronically signed by: Cullen Narayanan MD, [facility] ([phone]), at 05/11/2023 4:37 PM Narrative 05/11/2023 4:37 [...] 610 mm2 Circumference: 88 mm Calcification: Mild Yifyjix-ek-ecaylamn height: Left: 6.2 mm Right: 5.8 mm THORACIC AORTA Description: Normal course and caliber. ??Mild diffuse atherosclerotic changes. No acute aortopathy noted. Travel Specialist dimensions: Aortic root: 27.6 mm Max ascending aorta: 30.5 mm x 27.7 mm Suggested fluoroscopic angulation based on line extending through the nadirs of the three sinuses of Valsalva, set equidistant: ?? TURKMEN ??9 degrees; cranial 7 degrees MITRAL: Mitral [...] 610 mm2 Circumference: 88 mm Calcification: Mild Uwrcnds-nr-qxymnypz height: Left: 6.2 mm Right: 5.8 mm THORACIC AORTA Description: Normal course and caliber. Mild diffuse atheroscleroticchanges. No acute aortopathy noted. Travel Specialist dimensions: Aortic root: 27.6 mm Max ascending aorta: 30.5 mm x 27.7 mm Suggested fluoroscopic angulation based on line extending through thenadirs of the three sinuses of Valsalva, set equidistant: TURKMEN 9 degrees; cranial 7 degrees MITRAL: Mitral [...] have questions please contactthe health animal care technician that requested your imaging first. Electronically signed by: Cullen Narayanan MD, [facility]([phone]), at 05/11/2023 4:37 PM Antelmo Sharma MD IMG CT ORDERABLES * (ABNORMAL) Lactate, whole blood, send to lab ([facility] (05/11/2023 9:29 AM EDT) [facility] Lactate WB 3.1(H) 0.5 - 2.2 mmol/L [facility] Blood 05/11/2023 9:29 AM EDT 05/11/2023 9:38 AM EDT Narrative Resulting Agency Comment Spec In Lab Juan Luis Gonzalez MD CHEMISTRY ORDERABLES [facility] [place] [address] * (ABNORMAL) Differential, Automated (05/11/2023 4:42 AM EDT) Pathologist [facility] Neutrophil % 78.1 % [facility] Neutrophil Absolute 5.46 1.70 - 6.10 x10(3)/mc L [facility] Lymph % 10.6 % [facility] Lymphocytes Abs 0.7(L) 0.9 - 3.2 x10(3)/mc L [facility] Monocyte % 9.6 % [facility] Monocyte Abs 0.7 0.3 - 0.9 x10(3)/mc L [facility] Eos % 0.0 % [facility] Eosinophils Abs 0.0 0.0 - 0.4 x10(3)/mc L [facility] Basophil % 0.4 % [facility] ITAL [facility] Baso Absolute 0.0 [...] Absolute 0.09(H) 0.00 - 0.04 x10(3)/ L [facility] Blood 05/11/2023 4:42 AM EDT 05/11/2023 4:49 AM EDT Narrative Resulting Agency Comment Spec In Lab Klaudia Reid MD HEMATOLOGY OR DERABLES Performing Organization Address City/State/[facility] Co de Phone Number [facility] [place] [address] * (ABNORMAL) Hemogram (05/11/2023 4:42 AM EDT) [...] Platelet Volume 10.1 7.6 - 12.9 fL [facility] NRBC% auto 0.0 % [facility] ITAL LABORATORY NRBC Absolute 0.000 0.000 - 0.000 x10(3)/mc L [facility] Blood 05/11/2023 4:42 AM EDT 05/11/2023 4:49 AM EDT Narrative Resulting Agency Comment Spec In Lab Klaudia Reid MD HEMATOLOGY OR DERABLES Performing Organization Address [facility] Co de Phone Number [facility] [place] [address] * Heparin (unfractionated) Level (05/11/2023 4:42 AM EDT) UF Heparin 0.46 IU/mL [facility] Comment: Heparin (anti-Xa) levels should [...] MD HEMATOLOGY ORDERAB LES Performing Organization Address [facility] Co de Phone Number [facility] [place] [address] * (ABNORMAL) Comprehensive metabolic panel (non-fasting) (05/11/2023 4:42 AM EDT) Glucose 143 65 - 199 mg/dL [facility] Comment:Diabetes: >=200 mg/d L plus symptoms Blood Urea Nitrogen 42(H) 8 - 18 mg/dL [facility] Creatinine 1.24(H) 0.70 - 1.20 mg/dL [facility] Sodium 134(L) 135 - 145 mmol/L [facility] Potassium 4.6 3.5 - 5.0 mmol/L [facility] [...] Total 7.2 6.1 - 8.0 g/dL [facility] Albumin 3.7 3.2 - 5.2 g/dL [facility] Aspartate Aminotransferase 144(H) 0 - [...] - [facility]/ZIP Co de Phone Number [facility] [place] [address] * EKG 12 Lead (05/10/2023 1:16 PM EDT) Ventricular rate 118 BPM MUSE SYSTEM Atrial Rate 118 BPM MUSE SYSTEM P-R Interval 152 ms MUSE SYSTEM QRS Duration 104 ms MUSE SYSTEM Q-T Interval 316 ms MUSE SYSTEM QTC Calculated (Bezet) 442 ms MUSE SYSTEM Calculated P Grant 29 degrees MUSE SYSTEM Calculated R Grant 18 degrees MUSE SYSTEM Calculated T Grant -173 degrees MUSE SYSTEM INTERPRETATION Sinus tachycardia [...] Anterior leads Confirmed by MD Villareal Danette ([id number]) on 05/10/2023 8:47:46 PM MUSE SYSTEM 05/10/2023 1:16 PM EDT 05/10/2023 8:47 PM EDT Juan Luis Gonzalez MD ECG ORDERABLES Performing Organization Address [facility] Co de Phone Number MUSE SYSTEM * Lactate, whole blood, send to lab ([facility] (05/10/2023 11:52 AM EDT) Lactate WB 1.8 0.5 - 2.2 mmol/L [facility] Blood 05/10/2023 11:5 2 AM EDT 05/10/2023 12:13 PM EDT Narrative Resulting Agency Comment Spec In Lab Juan Luis Gonzalez MD CHEMISTRY ORDERABLES Performing Organization Address City/[facility]/ZIP Co de Phone Number [facility] [place] [address] * XR Chest One View (05/10/2023 11:16 [...] questions please contact the health animal care technician that requested your imaging first. ? Electronically signed by: ALIX RUVALCABA MD, [facility] ([phone]), at 05/10/2023 1:25 PM Narrative 05/10/2023 1:25 [...] have questions please contactthe health animal care technician that requested your imaging first. Electronically signed by: ALIX RUVALCABA MD, [facility]([phone]), at 05/10/2023 1:25 PM Juan Luis Gonzalze MD IMG DX ORDERABLES * EKG 12 Lead (05/10/2023 7:59 AM EDT) Pathologist [facility] Ventricular rate 115 BPM MUSE SYSTEM Atrial Rate 115 BPM MUSE SYSTEM P-R Interval 142 ms MUSE SYSTEM QRS Duration 102 ms MUSE SYSTEM Q-T Interval 322 ms MUSE SYSTEM QTC Calculated (Bezet) 445 ms MUSE SYSTEM Calculated P Grant 36 degrees MUSE SYSTEM Calculated R Grant 28 degrees MUSE SYSTEM Calculated T Grant -119 degrees MUSE SYSTEM INTERPRETATION Sinus tachycardia with frequent Premature ventricular complexes and Fusion complexes ST & T wave abnormality, consider lateral ischemia Abnormal ECG When compared with ECG of 08-MAY-2023 15:51, No significant change was found I personally reviewed the tracing and edited the fellows interpretation Confirmed by fellow MD [facility]ith[facility], [facility] on 05/11/2023 6:19:54 AM Confirmed by MD Tram, Chel ([id number]) on 05/11/2023 3:18:56 PM MUSE SYSTEM 05/10/2023 7:59 AM EDT 05/11/2023 3:18 PM EDT Radha Hollins MD ECG ORDERABLES MUSE SYSTEM * (ABNORMAL) Differential, Automated (05/10/2023 2:28 AM EDT) Neutrophil % 77.1 % [facility] Neutrophil Absolute 4.01 1.70 - 6.10 x10(3)/mc L [facility] Lymph % 14.0 % [facility] Lymphocytes Abs 0.7(L) 0.9 - 3.2 x10(3)/ L [facility] Monocyte % 7.7 % [facility] ITAL [facility] Monocyte Abs 0.4 0.3 - 0.9 x10(3)/[facility] LAB[facility]AT[facility] Eos % 0.4 % [facility] Eosinophils Abs 0.0 0.0 - 0.4 x10(3)/[facility] Basophil % 0.4 % [facility] ITAL LABOR[facility] Baso Absolute 0.0 0.0 - 0.1 x10(3)/[facility] Immature Gran % 0.40 % [facility] Comment: Immature granulocytes(IG's)percentage and absolute count will include metamyelocytes, myelocytes, and promyelocytes. Blood smears from CBCs yielding IG's will be scanned manually for concordance. If this scan disagrees with the automated IG or if promyelocytes are noted, a manual differential will be performed. Immature Gran Absolute 0.02 0.00 - 0.04 x10(3)/[facility] Blood 05/10/2023 2:28 AM EDT 05/10/2023 2:57 AM EDT Narrative Resulting Agency Comment Spec In Lab Klaudia Reid MD HEMATOLOGY OR DERABLES Performing Organization Address City/State/[facility] Co de Phone Number [facility] [place] [address] * (ABNORMAL) Hemogram (05/10/2023 2:28 AM EDT) White Blood Cell 5.2 4.0 - 9.5 x10(3)/[facility]ATORY Red Blood Cell 3.11(L) 4.00 - 5.21 x10(6)/[facility] Hemoglobin 10.2(L) 11.7 - 15.5 g/dL [facility] Hematocrit 30.2(L) 35.7 - 45.8 % [facility] Mean Cell Volume 97.1(H) 82.6 - 94.4 fL [facility] Mean Cell Hemoglobin 32.8(H) 27.1 - 32.0 pg [facility] Mean Cell Hemoglobin Concentration 33.8 31.7 - 35.0 g/dL [facility] Platelet 151 145 - 357 x10(3)/mc L [facility] RDW Standard Deviation 44.9 37.0 - 46.0 fL [facility] RDW coefficient of variation 12.8 11.5 - 14.1 % [facility] Mean Platelet Volume 9.8 7.6 - 12.9 fL [facility] NRBC% auto 0.0 % [facility] ITAL LABORATORY NRBC Absolute 0.000 0.000 - 0.000 x10(3)/mc L [facility] Blood 05/10/2023 2:28 AM EDT 05/10/2023 2:57 AM EDT Narrative Resulting Agency Comment Spec In Lab Klaudia Reid MD HEMATOLOGY OR DERABLES [facility] [place] [address] * (ABNORMAL) Comprehensive metabolic panel (non-fasting) (05/10/2023 2:28 AM EDT) Pathologist [facility] Glucose 100 65 - 199 mg/dL [facility] [...] questions. Chloride 102 98 - 107 mmol/L [facility] Carbon Dioxide 20(L) 22 - 31 mmol/L [facility] Anion Gap 12 5 - 15 mmol/L [facility] Calcium 9.3 8.5 - 10.5 mg/dL [facility] Protein, Total 6.4 6.1 - 8.0 g/dL [facility] Albumin 3.7 3.2 - 5.2 g/dL [facility] Aspartate Aminotransferase 24 0 - 30 unit/L [facility] Alanine Aminotransferase 14 0 - 30 unit/L [facility] Alkaline Phosphatase 70 35 - 105 unit/L [facility] Bilirubin, Total 0.5 0.2 - 1.3 mg/dL [facility] Est Glomerular Filtration Rate 70 >=60 mL/min/1. 73 m?? [facility] Comment: This patient's estimated [...] ES [facility] [place] [address] * Heparin (unfractionated) Level (05/10/2023 2:28 AM EDT) UF Heparin 0.37 IU/mL [facility]AL [facility] Comment: Heparin (anti-Xa) [...] Lab Radha Hollins MD [place] [address] * (ABNORMAL) Differential, Automated (05/09/2023 4:00 AM EDT) Neutrophil % 81.7 % [facility] Neutrophil Absolute 5.26 1.70 - 6.10 x10(3)/mc L [facility] Lymph % 10.7 % [facility] Lymphocytes Abs 0.7(L) 0.9 - 3.2 x10(3)/mc L [facility] Monocyte % 6.5 % [facility] Monocyte Abs 0.4 0.3 - 0.9 x10(3)/mc L [facility] Eos % 0.5 % [facility] Eosinophils Abs 0.0 0.0 - 0.4 x10(3)/mc L [facility] Basophil % 0.3 % [facility] Baso Absolute 0.0 0.0 - [...] MD HEMATOLOGY OR DERABLES Performing Organization Address City/[facility]/[place] [address] * (ABNORMAL) Hemogram (05/09/2023 4:00 AM EDT) White Blood Cell 6.4 4.0 - 9.5 x10(3)/mc L [facility] NRBC% auto 0.0 % [facility] NRBC Absolute 0.000 0.000 - 0.000 x10(3)/ L [facility] Blood 05/09/2023 4:00 AM EDT 05/09/2023 4:19 AM EDT Narrative Resulting Agency Comment Spec In Lab Klaudia Reid MD HEMATOLOGY OR DERABLES Performing Organization Address City/State/[facility] Co de Phone Number [facility] [place] [address] * Heparin (unfractionated) Level (05/09/2023 4:00 AM EDT) UF Heparin 0.47 IU/mL [facility] Comment: Heparin (anti-Xa) [...] ORDERAB LES [facility] [address] [place] [address] * (ABNORMAL) Comprehensive metabolic panel (non-fasting) (05/09/2023 4:00 AM EDT) Glucose 108 65 - 199 mg/dL [facility] LABORATORY Calcium 9.3 8.5 - 10.5 mg/dL [facility] Protein, Total 6.6 6.1 - 8.0 g/dL [facility] Albumin 3.8 3.2 - 5.2 g/dL [facility] Aspartate Aminotransferase 32(H) 0 - 30 unit/L [facility] Alanine Aminotransferase 18 0 - 30 unit/L [facility] Alkaline Phosphatase 78 35 [...] MD CHEMISTRY ORDERABL ES Performing Organization Address [facility] Co de Phone Number [facility] [place] [address] * (ABNORMAL) pro-Brain Natriuretic Peptide (05/08/2023 4:00 PM EDT) NT-proBNP 25,503(H) <=124 pg/mL [facility] Blood Venous Draw / Unknown 05/08/2023 4:00 PM EDT 05/08/2023 4:25 PM EDT Narrative Resulting Agency Comment Spec In Lab Juan Luis Gonzalez MD CHEMISTRY ORDERABLES Performing Organization Address City/[facility] Co de Phone Number [facility] [place] [address] * Magnesium (05/08/2023 4:00 PM EDT) Magnesium 0.82 0.69 - 1.07 mmol/L [facility] Blood 05/08/2023 4:00 PM EDT 05/08/2023 4:06 PM EDT Narrative Resulting Agency Comment Spec In Lab Enrique Chua MD CHEMISTRY ORDERABLES Performing Organization Address [facility] Co de Phone Number [facility] [place] [address] * Potassium (05/08/2023 4:00 PM EDT) Potassium 3.9 3.5 - 5.0 mmol/L [facility] Comment: Please note: ??Patients [...] MD CHEMISTRY ORDERABL ES Performing Organization Address [facility] [place] [address] * Heparin (unfractionated) Level (05/08/2023 4:00 PM EDT) UF Heparin 0.43 IU/mL [facility] ITAL [facility] Comment: Heparin (anti-Xa) [...] ORDERAB LES Performing Organization Address [facility] Co de Phone Number [facility] [place] [address] * EKG 12 Lead (05/08/2023 3:51 PM EDT) Ventricular rate 98 BPM MUSE SYSTEM Atrial Rate 98 BPM MUSE SYSTEM P-R Interval 150 ms MUSE SYSTEM QRS Duration 102 ms MUSE SYSTEM Q-T Interval 358 ms MUSE SYSTEM QTC Calculated (Bezet) 457 ms MUSE SYSTEM Calculated P Grant 38 degrees MUSE SYSTEM Calculated R Grant 48 degrees MUSE SYSTEM Calculated T Grant -112 degrees MUSE SYSTEM INTERPRETATION Sinus rhythm with frequent and consecutive Premature ventricular and fusion complexes Septal infarct , age undetermined ST & T wave abnormality, consider anterolateral ischemia Abnormal ECG When compared with ECG of 09-NOV-2022 11:17, T wave inversion now evident in Anterolateral leads Confirmed by MD Harshil, Enrique Bell ([id number]) on 05/10/2023 8:11:46 AM MUSE SYSTEM 05/08/2023 3:51 PM EDT 05/10/2023 8:11 AM EDT Radha Hollins MD ECG ORDERABLES MUSE SYSTEM * (ABNORMAL) Differential, Automated (05/08/2023 11:38 AM EDT) Pathologist [facility] Neutrophil % 71.3 % [facility] Neutrophil Absolute 2.91 1.70 - 6.10 x10(3)/mc L [facility] Lymph % 19.1 % [facility] Lymphocytes Abs 0.8(L) 0.9 - 3.2 x10(3)/mc L [facility] Monocyte % 9.0 % [facility] Monocyte Abs 0.4 0.3 - 0.9 x10(3)/mc L [facility] Eos % 0.2 % [facility] Eosinophils Abs 0.0 0.0 - 0.4 x10(3)/mc L [facility] Basophil % 0.2 % [facility] Baso Absolute 0.0 0.0 - [...] HEMATOLOGY ORDERA BLES [facility] [place] [address] * (ABNORMAL) Hemogram (05/08/2023 11:38 AM EDT) White Blood Cell 4.1 4.0 - 9.5 x10(3)/ L [facility] Red Blood Cell 3.05(L) 4.00 - 5.21 x10(6)/ L [facility] Hemoglobin 10.2(L) [...] [facility] NRBC% auto 0.0 % [facility] ITAL LABORAT[facility] NRBC Absolute 0.000 0.000 - 0.000 x10(3)/ L [facility] Blood 05/08/2023 11:3 8 AM EDT 05/08/2023 11:44 AM EDT Narrative Resulting Agency Comment Spec In Lab Lincoln Sal MD HEMATOLOGY ORDERA BLES Performing Organization Address [facility] Co de Phone Number [facility] [place] [address] * TSH (05/08/2023 11:38 AM EDT) Thyroid Stimulating Hormone 1.27 0.27 - 4.20 mcIU/mL [facility] Comment: Reference Interval (mcIU/mL): Females: ??First Trimester: 0.23-3.88 ??Second Trimester: 0.22-3.90 ??Third Trimester: 0.44-4.66 Blood 05/08/2023 11:3 8 AM EDT 05/08/2023 11:44 AM EDT Narrative Resulting Agency Comment Spec In Lab Enrique Chua MD CHEMISTRY ORDERABLES Performing Organization Address [facility] Co de Phone Number [facility] [place] [address] * (ABNORMAL) Phosphorus (05/08/2023 11:38 AM EDT) Phosphorus 4.7(H) 2.5 - 4.5 mg/dL [facility] Blood 05/08/2023 11:3 8 AM EDT 05/08/2023 11:44 AM EDT Narrative Resulting Agency Comment Spec In Lab Enrique Chua MD CHEMISTRY ORDERABLES Performing Organization Address [facility] Co de Phone Number [facility] [place] [address] * Magnesium (05/08/2023 11:38 AM EDT) Magnesium 0.76 0.69 - 1.07 mmol/L [facility] Blood 05/08/2023 11:3 8 AM EDT 05/08/2023 11:44 AM EDT Narrative Resulting Agency Comment Spec In Lab Enrique Chua MD CHEMISTRY ORDERABLES Performing Organization Address [facility] [facility] Co de Phone Number [facility] [place] [address] * (ABNORMAL) Basic Metabolic Panel (non-fasting) (05/08/2023 [...] Chua MD CHEMISTRY ORDERABLES Performing Organization Address [facility]/ZIP Co de Phone Number [facility] [place] [address] * ECHO COMPLETE (05/08/2023 11:02 AM EDT) EF 25 HEARTLAB SYSTEM Anatomical Region Laterality Modality Cardiac Other 05/08/2023 10:0 3 AM EDT Narrative 05/08/2023 11:51 AM EDT ? Echocardiogram Report Name: PURNIMA THACKER ?Study Date: 05/08/2023 10:03 AMBP: 92/64 mmHg ? Patient Location: [facility]CC^CV29^A : 1955 ? Height: 155 cm ? Account: [id number] Age: 67 yrs ? Weight: 78 kg Gender: Female ?BSA: 1.8 m2 Ordering Physician: ENRIQUE CHUA Referring Physician: MARIO ALBERTO CHIN Performed By: CHUCKIE Canchola Reason For Study: SAVR Stenosis Exam Location: [facility]. Interpretation Summary -Left ventricle is severely dilated [...] worsening stenosis. Mitral regurgitation is similar. Procedure Complete-88948. Satisfactory quality. There is normal sinus rhythm. [...] Study Date: 0:03 AMBP: 92/64 mmHg Patient Location:[facility]^CV29^A : 1955 Height: 155 cm Account: [id number] Age: 67 yrs Weight: 78 kg Gender: Female BSA: 1.8 m2 Ordering Physician: ENRIQUE CHUA Referring Physician: MARIO ALBERTO CHIN Performed By: CHUCKIE Canchola Reason For Study: SAVR Stenosis Exam Location: [facility]. Interpretation Summary -Left ventricle is severely dilated [...] suggestsworsening stenosis. Mitral regurgitation is similar. Procedure Complete-89444. Satisfactory quality. There is normal sinus rhythm. 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
--- OUTSIDE RECORDS SUMMARY | 2024-05-02 15:12 | XMS_ITS | Encounter Summary ---
Author Organization [facility] Address [facility] [place] [address] Care Team Providers Care Physician Scribe Name Role Phone Deborah Quiroga APRN Primary Care Provider [phone] Encounter Details Date Type Department Care Team (Latest Contact Info) Description 07/03/2022 12:28 PM EST - 07/03/2022 1:35 PM EST Hospital Encounter Hematology [place] [address] Chronic idiopathic neutropenia Discharge Disposition: Home Social [...] 9:00 AM EDT Laboratory Appointment Lab at [facility] [place] On[place] [address] [place] [address] 05/12/2024 10:00 AM EDT Office Visit Hematology [place] [address] Markel Borjas MD [facility] [address] HEMATOLOGY [place] [address] 03/01/2025 4:15 PM EDT Office Visit Dermatology at [place] [address] [facility] [place] [phone] Marek Bonilla MD [address] [place] [address] documented as of this encounter Procedures Procedure [...] 12:40 PM EST) Neutrophil % 72.9 % [facility] Neutrophil Absolute 2.61 1.70 - 6.10 x10(3)/mc L [facility] Lymph % 18.4 % [facility] Lymphocytes Abs 0.7(L) 0.9 - 3.2 x10(3)/mc L [facility] Monocyte % 8.4 % [facility] Monocyte Abs 0.3 0.3 - 0.9 x10(3)/mc L [facility] Eos % 0.0 % [facility] Eosinophils Abs 0.0 0.0 - 0.4 x10(3)/mc L [facility] Basophil % 0.3 % [facility] Baso Absolute 0.0 0.0 - 0.1 x10(3)/mc L [facility] Immature Gran % 0.00 % [facility] Comment: Immature granulocytes(IG's)percentage and absolute count will include metamyelocytes, myelocytes, and promyelocytes. Blood smears from CBCs yielding IG's will be scanned manually for concordance. If this scan disagrees with the automated IG or if promyelocytes are noted, a manual differential will be performed. Immature Gran Absolute 0.00 0.00 - 0.04 x10(3)/mc L [facility] Blood 07/03/2022 12:4 0 PM EST 07/03/2022 1:03 PM EST Narrative Resulting Agency Comment Spec In Lab Markel Borjas MD HEMATOLOGY ORDERAB LES [facility] [place] [address] * (ABNORMAL) Hemogram (07/03/2022 12:40 PM EST) White Blood Cell 3.6(L) 4.0 - 9.5 x10(3)/ L [facility] Red Blood Cell 3.61(L) 4.00 - 5.21 x10(6)/mc L [facility] Hemoglobin 11.7 11.7 - 15.5 g/dL [facility] Hematocrit 34.5(L) 35.7 - 45.8 % [facility] Mean Cell Volume 95.6(H) 82.6 - 94.4 fL [facility] Mean Cell Hemoglobin 32.4(H) 27.1 - 32.0 pg [facility] Mean Cell Hemoglobin Concentration 33.9 31.7 - 35.0 g/dL [facility] Platelet 171 145 - 357 x10(3)/mc L [facility] RDW Standard Deviation 40.5 37.0 - 46.0 fL [facility] RDW coefficient of variation 11.5 11.5 - 14.1 % [facility] Mean Platelet Volume 9.2 7.6 - 12.9 fL [facility] NRBC% auto 0.0 % [facility] NRBC Absolute 0.000 0.000 - 0.000 x10(3)/ L [facility] Blood 07/03/2022 12:4 0 PM EST 07/03/2022 1:03 PM EST Narrative Resulting Agency Comment Spec In Lab Markel Borjas MD HEMATOLOGY ORDERAB LES [facility] [place] [address] * (ABNORMAL) Comprehensive metabolic panel (non-fasting) (07/03/2022 [...] CHEMISTRY ORDERABL ES [facility] [place] [address] documented in this encounter Visit Diagnoses Diagnosis Chronic idiopathic neutropenia Other neutropenia documented in this encounter Care Teams Physician Scribe Relationship Specialty Start Date End Date Deborah Quiroga APRN PCP - General Family Medicine 03/24/16 02/04/23 documented as of this encounter
--- OUTSIDE RECORDS SUMMARY | 2024-05-02 15:12 | XMS_ITS | Encounter Summary ---
[place] [address] Care Team Providers Care Farmworker Bulbs Name Role Phone Magdalena Acosta MD Primary Care Provider [phone] Reason for Visit * Reason Comments Skin Lesion Encounter Details Date Type Department Care Team (Late st Contact Info) Description 04/20/2023 10:00 AM EDT Office Visit Dermatology at [address] [address] Marek Bonilla MD [address] [facility] [place] [address] Seborrheic keratosis Social History Tobacco Use Types [...] cutaneous and ocular 3. Previously told by tobacco sampler that she had corneal tears from her [...] EDT Laboratory Appointment Lab [place] [facility] [place] [address] [place] [address] 05/12/2024 10:00 AM EDT Office Visit Hematology [place] [address] Markel Borjas MD [facility] [address] HEMATOLOGY [place] [address] 03/01/2025 4:15 PM EDT Office Visit Dermatology at [address] [place] [address] Marek Bonilla MD [address] [facility] [place] [address] documented as of this encounter Visit Diagnoses Diagnosis Seborrheic keratosis Other seborrheic keratosis documented in this encounter Care Teams Farmworker Bulbs Relationship Specialty Start Date End Date Magdalena Acosta MD [address] [place] [address] PCP - General Family Medicine 02/05/23 documented as of this encounter
--- OUTSIDE RECORDS SUMMARY | 2024-05-02 15:12 | XMS_ITS | Encounter Summary ---
Author Organization [facility] [place] [address] Care Team Providers Care Referral Nurse Name Role Phone Magdalena Acosta MD Primary Care Provider [phone] Encounter Details Date Type Department Care Team (Latest Contact Info) Description 03/18/2023 2:30 PM EDT Laboratory Appointment Lab [address] [phone] Positive FRANCISCO (antinuclear antibody) Social History Tobacco [...] [facility] [place] [address] [place] [address] 05/12/2024 10:00 AM EDT Office Visit Hematology [place] [address] Markel Borjas MD [facility] [place] [address] 03/01/2025 4:15 PM EDT Office Visit Dermatology at [address] [address] Marek Bonilla MD [address] [facility] [place] [place], [place] [phone] documented as of this encounter Procedures Procedure [...] Differential, Automated (03/18/2023 2:14 PM EDT) Pathologist [facility] Neutrophil % 71.2 % [facility] Neutrophil Absolute 2.26 1.70 - 6.10 x10(3)/mc L [facility] Lymph % 18.2 % [facility] Lymphocytes Abs 0.6(L) 0.9 - 3.2 x10(3)/ L [facility] Monocyte % 9.7 % [facility] Monocyte Abs 0.3 0.3 - 0.9 x10(3)/[facility] Eos % 0.3 % [facility] Eosinophils Abs 0.0 0.0 - 0.4 x10(3)/[facility] Basophil % 0.6 % [facility] Baso Absolute 0.0 0.0 - 0.1 x10(3)/[facility] Immature Gran % 0.00 % [facility] Comment: Immature granulocytes(IG's)percentage and absolute count will include metamyelocytes, myelocytes, and promyelocytes. Blood smears from CBCs yielding IG's will be scanned manually for concordance. If this scan disagrees with the automated IG or if promyelocytes are noted, a manual differential will be performed. Immature Gran Absolute 0.00 0.00 - 0.04 x10(3)/[facility] Blood 03/18/2023 2:14 PM EDT 03/18/2023 2:24 PM EDT Narrative Resulting Agency Comment Spec In Lab Magdalena Peralta MD HEMATOLOGY ORDERABLE S [facility] [place] [address] * (ABNORMAL) Hemogram (03/18/2023 2:14 PM EDT) White Blood Cell 3.2(L) 4.0 - 9.5 x10(3)/[facility] Red Blood Cell 3.44(L) 4.00 - 5.21 x10(6)/[facility] Hemoglobin 11.1(L) 11.7 - 15.5 g/dL [facility] Hematocrit 32.9(L) 35.7 - 45.8 % [facility] Mean Cell Volume 95.6(H) 82.6 - 94.4 fL [facility] Mean Cell Hemoglobin 32.3(H) 27.1 - 32.0 pg [facility] Mean Cell Hemoglobin Concentration 33.7 31.7 - 35.0 g/dL [facility] Platelet 144(L) 145 - 357 x10(3)/mc L [facility] RDW Standard Deviation 42.6 37.0 - 46.0 fL [facility] RDW coefficient of variation 12.3 11.5 - 14.1 % [facility] Mean Platelet Volume 9.4 7.6 - 12.9 fL [facility] NRBC% auto 0.0 % [facility] LABORATORY NRBC Absolute 0.000 0.000 - 0.000 x10(3)/mc L [facility] Blood 03/18/2023 2:14 PM EDT 03/18/2023 2:24 PM EDT Narrative Resulting Agency Comment Spec In Lab Magdalena Peralta MD HEMATOLOGY ORDERABLE S Performing Organization Address City/[facility]/ZIP Co de Phone Number [facility] [place] [address] * (ABNORMAL) Sedimentation rate (03/18/2023 2:14 PM EDT) Sedimentation Rate Automated 68(H) 2 - 39 mm/hr [facility] Comment: Effective July 12, 2019 new capillary photometric technology has resulted in a change in reference ranges. It is recommended that each ESR result be reviewed with its own age appropriate reference range. Blood 03/18/2023 2:14 PM EDT 03/18/2023 2:24 PM EDT Narrative Resulting Agency Comment Spec In Lab Kia Viramontes DO HEMATOLOGY ORDERAB LES [facility] [place] [address] * CRP, acute inflammation (03/18/2023 2:14 PM EDT) C-Reactive Protein 3.0 <=4.9 mg/L [facility] Blood 03/18/2023 2:14 PM EDT 03/18/2023 2:24 PM EDT Narrative Resulting Agency Comment Spec In Lab Kiagiacomo Mossew DO CHEMISTRY ORDERABL ES Performing Organization Address [facility] Co de Phone Number [facility] [place] [address] * C3 Complement (03/18/2023 2:14 PM EDT) Complement C3 142 90 - 180 mg/dL [facility] Blood 03/18/2023 2:14 PM EDT 03/18/2023 2:24 PM EDT Narrative Resulting Agency Comment Spec In Lab Kia Mossew DO CHEMISTRY ORDERABL ES Performing Organization Address [facility] de Phone Number [facility] [place] [address] * C4 Complement (03/18/2023 2:14 PM EDT) Complement C4 30 10 - 40 mg/dL [facility] Blood 03/18/2023 2:14 PM EDT 03/18/2023 2:24 PM EDT Narrative Resulting Agency Comment Spec In Lab Kia Mossew DO CHEMISTRY ORDERABL ES Performing Organization Address [facility] de Phone Number [facility] [place] [address] * CK (03/18/2023 2:14 PM EDT) Creatine Kinase 38 0 - 160 unit/L [facility] Blood 03/18/2023 2:14 PM EDT 03/18/2023 2:24 PM EDT Narrative Resulting Agency Comment Spec In Lab Kia D Wander DO CHEMISTRY ORDERABL ES Performing Organization Address [facility] Co de Phone Number [facility] [place] [address] * DNA Antibody (Double-Stranded) (03/18/2023 2:14 PM EDT) dsDNA Ab <0.6 <=15.0 IU/mL [facility] Comment: <10 negative 10-15 equivocal >15 positive This dsDNA antibody result was generated using a fluoroenzyme immunoassay on the Kiip 250 analyzer. This quantitative test is designed to detect IgG antibodies directed against double stranded DNA in human serum. The presence of antibodies that recognize dsDNA is a highly specific marker for systemic lupus erythematosus. Please note that as of 05/26/2022 that this testing is performed by the Special Chemistry Laboratory at [facility]. This change in testing location is associated with a change is testing method and reference intervals. Please review the results of this test in association with the posted reference intervals. Blood 03/18/2023 2:14 PM EDT 03/19/2023 7:19 AM EDT Narrative Resulting Agency Comment Spec In Lab Kia Viramontes DO LAB SEND OUT ORDER JODIE [facility] [place] [address] * (ABNORMAL) FRANCISCO Ab by IFA (03/18/2023 2:14 PM EDT) [facility] FRANCISCO Ab Screen Test ? Result ?Flag ??Unit ??RefValue Antinuclear Ab, HEp-2 ?Positive 1:2560 ??@ ?<1:80 (Negative) ??Substrate, S ? ADDITIONAL INFORMATION --------- ?Method: Immunofluorescence using HEp-2 cellular substrate. ??FRANCISCO Titer: ? 1:2560 ??FRANCISCO Pattern: ? Speckled ?Test Performed by: ?[facility] ?[address] [place] [address] ?Stonecutter Assistant: Raymond Chaudhry M.D. Ph.D.; CLIA# [id number] ([id number]) [facility] Blood 03/18/2023 2:14 PM EDT 03/18/2023 3:02 PM EDT Narrative Resulting Agency Comment Spec In Lab Kia Viramontes DO CHEMISTRY ORDERABL ES [facility] [place] [address] * Comprehensive metabolic panel (non-fasting) (03/18/2023 2:14 PM EDT) Glucose 93 65 - 199 mg/dL [facility] Comment:Diabetes: >=200 mg/d L plus symptoms Blood Urea Nitrogen 18 8 - 18 mg/dL [facility] Creatinine 0.99 0.70 - 1.20 mg/dL [facility] Sodium 141 135 - 145 mmol/L [facility] Potassium 4.5 3.5 - 5.0 mmol/L [facility] Comment: Please note: ??Patients with WBC >100,000 may have falsely elevated Potassium levels. ??For accurate Potassium quantification in these patients send serum separator tube (gold top) for subsequent determinations. ??Contact the Clinical Chemistry Laboratory if there are any questions. Chloride 106 98 - 107 mmol/L [facility] Carbon Dioxide 24 22 - 31 mmol/L [facility] Anion Gap 11 5 - 15 mmol/L [facility] Calcium 10.0 8.5 - 10.5 mg/dL [facility] Protein, Total 7.3 6.1 - 8.0 g/dL [facility] Albumin 4.3 3.2 - 5.2 g/dL [facility] Aspartate Aminotransferase 26 0 - 30 unit/L [facility] Alanine Aminotransferase 11 0 - 30 unit/L [facility] Alkaline Phosphatase 91 35 - 105 unit/L [facility] Bilirubin, Total 0.4 0.2 - 1.3 mg/dL [facility] Est Glomerular Filtration Rate 62 >=60 mL/min/1. 73 m?? [facility] Comment: This patient's estimated [...] Lab Kia Viramontes DO CHEMISTRY ORDERABL ES [facility] [place] [address] documented in this encounter Visit Diagnoses Diagnosis Positive FRANCISCO (antinuclear antibody) Other and unspecified nonspecific immunological findings documented in this encounter Care Teams Referral Nurse Relationship Specialty Start Date End Date Magdalena Acosta MD [address] [place] [address] PCP - General Family Medicine 02/05/23 documented as of this encounter
--- OUTSIDE RECORDS SUMMARY | 2024-05-02 15:12 | XMS_ITS | Encounter Summary ---
Author Organization [facility] Address [facility] [place] [address] Care Team Providers Care Purchasing Engineer Name Role Phone Magdalena Acosta MD Primary Care Provider [phone] Encounter Details Date Type Department Care Team [...] EDT Laboratory Appointment Lab [place] [facility] [place] [address] [place] [address] 05/12/2024 10:00 AM EDT Office Visit Hematology [place] [address] Markel Borjas MD [facility] [address] HEMATOLOGY [place] [address] 03/01/2025 4:15 PM EDT Office Visit Dermatology at [place] [address] [facility] [place] [phone] Marek Bonilla MD [address] [facility] [place] [address] documented as of this encounter Visit Diagnoses Not on filedocumented in this encounter Care Teams Purchasing Engineer Relationship Specialty Start Date End Date Magdalena Acosta MD [address] [place] [address] PCP - General Family Medicine 02/05/23 documented as of this encounter
--- OUTSIDE RECORDS SUMMARY | 2024-05-02 15:12 | XMS_ITS | Encounter Summary ---
Author Organization [facility] Address [facility] [place] [address] Care Team Providers Care Tar [place]el Name Role Phone Magdalena Acosta MD Primary Care Provider [phone] Encounter Details Date Type Department Care Team [...] [facility] Hematology Oncology [address] [place] [address] 05/12/2024 10:00 AM EDT Office Visit Hematology [place] [address] Markel Borjas MD [facility] [address] HEMATOLOGY [place] [address] 03/01/2025 4:15 PM EDT Office Visit Dermatology at [place] [address] [facility] [phone] Marek Bonilla MD [address] [facility] [place] [address] documented as of this encounter Visit Diagnoses Not on filedocumented in this encounter Care Teams Tar Heel Relationship Specialty Start Date End Date Magdalena Acosta MD [address] [place] [address] PCP - General Family Medicine 02/05/23 documented as of this encounter
--- OUTSIDE RECORDS SUMMARY | 2024-05-02 15:12 | XMS_ITS | Encounter Summary ---
Author Organization [facility] [place] [address] Care Team Providers Care Turn Machine Operator Name Role Phone Magdalena Acosta MD Primary Care Provider [phone] Encounter Details Date Type Department Care Team (Late st Contact Info) Description 03/29/2023 Orders Only Cardiology at [address] [phone] Ranjan Delgado MD [facility] [place] [address] Severe aortic stenosis (Primary Dx) Social History [...] [facility] [place] [place] On[place] [address] [place] [id number] 05/12/2024 10:00 AM EDT Office Visit Hematology [place] [address] Markel Borjas MD [facility] [address] HEMATOLOGY [place] [address] 03/01/2025 4:15 PM EDT Office Visit Dermatology at [place] [address] [facility] [address] [place] [phone] Marke Bonilla MD [address] [facility] [facility] [address] [place] [address] Scheduled Orders Name Type Priority Associated Diagnoses [...] disorders documented in this encounter Care Teams Turn Machine Operator Relationship Specialty Start Date End Date Magdalena Acosta MD [address] [place] [address] PCP - General Family Medicine 02/05/23 documented as of this encounter
--- OUTSIDE RECORDS SUMMARY | 2024-05-02 15:12 | XMS_ITS | Encounter Summary ---
Author Organization [facility]ly [facility], [facility] Address [facility] [place] [address] Care Team Providers Care Technical Planner Name Role Phone Deborah Quiroga APRN Primary Care Provider [phone] Reason for Visit * Reason Comments Follow-up Encounter Details Date Type Department Care Team (Late st Contact Info) Description 07/03/2022 1:30 PM EST Office Visit [place] [address] Markel Borjas MD [facility] [address] [place] [address] Consuelo Sommer APRN [facility] [address] [place] [address] Chronic idiopathic neutropenia; Dysuria Social History Tobacco [...] 07/03/2022 1:30 PM EST Hematology Outpatient Clinic [facility] Hematology Outpatient Consult Note CC: 60 [...] TOUCH PREP, CLOT SECTION, CORE ??BIOPSY); [OSR# [id number], COLLECTED 06/23/2016, 19 SLIDES]: ?1. 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 Extremities: No edema. Labs: Hgb= 11.7 Tpzq=196 ANC= 2.5 Imaging As above - reviewed [...] AM EDT Laboratory Appointment Lab at [facility] Hematology Oncology [address] [place] [address] 05/12/2024 10:00 AM EDT Office Visit [place]ology [place] [address] Markel Borjas MD [facility] [address] [place] [address] 03/01/2025 4:15 PM EDT Office Visit Dermatology at [place] [address] [facility] [place] [phone] Marek Bonilla MD [address] [facility] [place] [address] documented as of this encounter Procedures Procedure [...] tract infection, submit a new specimen. (A) [facility] Clean Catch Urine 07/03/2022 2:00 PM EST 07/03/2022 5:55 PM EST Narrative Resulting Agency Comment Spec In Lab Markel Borjas MD MICROBIOLOGY - GEN ERAL ORDERABLES Performing Organization Address City/[facility]/ZIP Co de Phone Number [facility] [place] [address] * (ABNORMAL) Urinalysis Microscopic Exam (07/03/2022 2:00 PM EST) RBC, Urine 2 0 - 4 /HPF [facility] WBC, Urine 14(H) 0 - 5 /HPF [facility] Bacteria, Urine Occasional (A) None /HPF [facility] Squamous Epithelial Cells Raw Data, Urine 12(H) <=4 /HPF [facility] Hyaline Casts, Urine 2 0 - 2 /LPF [facility] Clean Catch Urine 07/03/2022 2:00 PM EST 07/03/2022 2:29 PM EST Narrative Resulting Agency Comment Spec In Lab Markel Borjas MD URINE ORDERABLES Performing Organization Address City/[facility]/ZIP Co de Phone Number [facility] [place] [address] * (ABNORMAL) Urinalysis with reflex Culture (07/03/2022 2:00 PM EST) Glucose, Urine Dipstick Negative Negative mg/dL [facility] Protein, Urine Dipstick 30(A) Negative mg/dL [facility] Bilirubin, Urine Dipstick Negative Negative mg/dL [facility] Comment: Clinical correlation required for positive Urine Bilirubin results as false positive may occur with some drugs and drug related products. If a false positive is suspected a serum total bilirubin should be considered if clinically indicated. Urobilinogen, Urine Dipstick Normal Normal mg/dL [facility] pH, Urn (dipstick) 5.5 5.0 - 8.0 [facility] Blood, Urine Dipstick Negative Negative mg/dL [facility] Ketone, Urine Dipstick Trace(A) Negative mg/dL [facility] Nitrite, Urine Dipstick Negative Negative [facility] Leukocytes, Urine Dipstick Small(A) Negative [facility] Appearance, Urine Dipstick Clear Clear [facility] Specific [place] Urine Automated 1.022 1.005 - 1.030 [facility] Color, Urine Dipstick Yellow Yellow [facility] Reflex to Culture Yes [facility] Clean Catch Urine 07/03/2022 2:00 PM EST 07/03/2022 2:29 PM EST Narrative Resulting Agency Comment Spec In Lab Markel Borjas MD URINE ORDERABLES [facility] [place] [address] * (ABNORMAL) Comprehensive metabolic panel (non-fasting) (07/03/2022 12:40 PM EST) Glucose 92 65 - 199 mg/dL [facility] Comment:Diabetes: >=200 mg/d L plus symptoms Blood Urea Nitrogen 22(H) 8 - 18 mg/dL [facility] Creatinine 0.80 0.70 - 1.20 mg/dL [facility] [...] 107 mmol/L [facility] Carbon Dioxide 23 22 - 31 mmol/L [facility] Anion Gap 11 5 - 15 mmol/L [facility] Calcium 10.1 8.5 - 10.5 mg/dL [facility] Protein, Total 7.6 6.1 - 8.0 g/dL [facility] Albumin 4.1 3.2 - 5.2 g/dL [facility] Aspartate Aminotransferase 25 0 - 30 unit/L [facility] Alanine Aminotransferase 14 0 - 30 unit/L [facility] Alkaline Phosphatase 80 35 - 105 unit/L [facility] Bilirubin, Total 0.3 0.2 - 1.3 mg/dL [facility] Est Glomerular Filtration Rate 81 >=60 mL/min/1. 73 m?? [facility] [...] Lab Markel Borjas MD CHEMISTRY ORDERABL ES [facility] [place] [address] documented in this encounter Visit Diagnoses Diagnosis Chronic idiopathic neutropenia Other neutropenia Dysuria documented in this encounter Care Teams Technical Planner Relationship Specialty Start Date End Date Deborah Quiroga APRN PCP - General Family Medicine 03/24/16 02/04/23 documented as of this encounter
--- OUTSIDE RECORDS SUMMARY | 2024-05-02 15:12 | XMS_ITS | Encounter Summary ---
Author Organization [facility] Address [facility] [place] [address] Care Team Providers Care Lumber Bearer Name Role Phone Magdalena Acosta MD Primary Care Provider [phone] Encounter Details Date Type Department Care Team (Late st Contact Info) Description 04/27/2023 3:00 PM EDT Office Visit [place] [address] Magdalena Peralta MD [facility] [place] [address] Mixed connective tissue disease Social History Tobacco [...] 1:5120 speckled; VIC negative; Myositis panel with CISCO ENGINEER ab 149.1 (positive); Anti U1RNP IgG [...] EDT Laboratory Appointment Lab at [facility] [place] Oncology [address] [place] [address] 05/12/2024 10:00 AM EDT Office Visit Hematology [place] [address] Markel Borjas MD [facility] [place] [address] 03/01/2025 4:15 PM EDT Office Visit Dermatology at [place] [address] [facility] [address] [place] [address] Marek Bonilla MD [address] [facility], [place] [address] documented as of this encounter Visit Diagnoses Diagnosis Mixed connective tissue disease Other specified diffuse disease of connective tissue documented in this encounter Care Teams Lumber Bearer Relationship Specialty Start Date End Date Magdalena Acosta MD [address] [place] [address] PCP - General Family Medicine 02/05/23 documented as of this encounter
--- OUTSIDE RECORDS SUMMARY | 2024-05-02 15:12 | XMS_ITS | Encounter Summary ---
Author Organization [facility] Address [facility] [place] [address] Care Team Providers Care Social Group Worker Name Role Phone Magdalena Acosta MD Primary Care Provider [phone] Encounter Details Date Type Department Care Team [...] AM EDT Laboratory Appointment Lab at [facility] Hematology Oncology [address] [place] [address] 05/12/2024 10:00 AM EDT Office Visit Hematology [place] [address] Markel Borjas MD [facility] [address] HEMATOLOGY [place] [address] 03/01/2025 4:15 PM EDT Office Visit Dermatology at [place] [address] [facility] [place] [phone] Marek Bonilla MD [address] [facility], [place] [address] documented as of this encounter Visit Diagnoses Not on filedocumented in this encounter Care Teams Social Group Worker Relationship Specialty Start Date End Date Magdalena Acosta MD [address] [address] PCP - General Family Medicine 02/05/23 documented as of this encounter
--- OUTSIDE RECORDS SUMMARY | 2024-05-02 15:13 | XMS_ITS | Encounter Summary ---
[place] [address] Care Team Providers Care Service Worker Name Role Phone Junaid, Deborah Shields APRN Primary Care Provider [phone] Encounter Details Date Type Department Care Team (Late st Contact Info) Description 10/20/2016 11:20 AM EDT Office [place] [address] Alirio Esparza MD S/P AVR Social History [...] all of her postoperative tests done at [facility]. Her echo shows a well-seated valve. Her EF, for some reason, was read as in the 45% to 50% range. She had a normal EF to start. I think that will need to be repeated at [facility]. She has no perivalve leak. [...] should continue to see Dr. Burrell, her production supervisor off shift at [facility]. cc: Dr. Burrell documented in this encounter Plan of Treatment Upcoming Encounters Date Type Department Care Team (Late st Contact Info) Description 05/12/2024 9:00 AM EDT Laboratory Appointment Lab at [facility] [place] Oncology [address] [place] [address] 05/12/2024 10:00 AM EDT Office Visit Hematology [place] [address] Markel Borjas MD [facility] HEMATOLOGY [place] [address] 03/01/2025 4:15 PM EDT Office Visit Dermatology at [place] [address] [facility] [address] [place] [address] Marek Bonilla MD [address] [place] [address] documented as of this encounter Visit Diagnoses Diagnosis S/P AVR Heart valve replaced by other means documented in this encounter Care Teams Service Worker Relationship Specialty Start Date End Date Deborah Quiroga APRN PCP - General Family Medicine 03/24/16 02/04/23 documented as of this encounter
--- OUTSIDE RECORDS SUMMARY | 2024-05-02 15:13 | XMS_ITS | Encounter Summary ---
Author Organization [facility] [place] [address] Care Team Providers Care Fence Erector Name Role Phone Ashley Quirogan Cornelius ANURAG Primary Care Provider [phone] Encounter Details Date Type Department Care Team (Late st Contact Info) Description 02/06/2020 Orders Only [place]ology [place] [address] Markel Borjas MD [facility] [address] [place] [address] Neutropenia, unspecified type Social History Tobacco Use [...] 9:00 AM EDT Laboratory Appointment Lab at [facility] [place]ology Oncology [address] [place] [address] 05/12/2024 10:00 AM EDT Office Visit [place]ology [place] [address] Markel Borjas MD [facility] [address] HEMATOLOG[place] [address] 03/01/2025 4:15 PM EDT Office Visit Dermatology at [place] [address] [facility] [address] [place] [address] Marek Bonilla MD [address] [place] [address] documented as of this encounter Visit Diagnoses Diagnosis Neutropenia, unspecified type documented in this encounter Care Teams Fence Erector Relationship Specialty Start Date End Date Deborah Quiroga APRN PCP - General Family Medicine 03/24/16 02/04/23 documented as of this encounter
--- OUTSIDE RECORDS SUMMARY | 2024-05-02 15:13 | XMS_ITS | Encounter Summary ---
Author Organization [facility] [place] [address] Care Team Providers Care Reinforcing Steel Placer Name Role Phone Deborah Quiroga APRN Primary Care Provider [phone] Encounter Details Date Type Department Care Team (Late st Contact Info) Description 06/05/2021 Interpretation Only [address] [address] Deborah Quiroga APRN [address] [phone] Social History Tobacco Use Types Packs/Day Years [...] at [facility] [place] Oncology [address] [place] [address] 05/12/2024 10:00 AM EDT Office Visit Hematology [place] [address] Markel Borjas MD [facility] DR HEMATOLOGY [place] [address] 03/01/2025 4:15 PM EDT Office Visit Dermatology at [place] [address] [place] [address] Marek Bnoilla MD [address] [facility] [address], [place] [address] documented as of this encounter Procedures Procedure Name Priority Date/Time Associated Diagnosis Comments MAMMO SCREENING CAD AND CATRACHITO BILATERAL Routine 06/05/2021 11:42 AM EDT documented in this encounter Results * Mammo Screening Cad and Catrachito Bilateral (06/05/2021 11:42 AM EDT) PT CLASS O DH RAD ADMITDTTM DH RAD PT DH RAD INFO [phone]^EVERET T^DEBORAH^E DH RAD EXAM DESC MADDSCTO^BREAST SCREEN [...] who have questions please contact the health patient care representative that requested your imaging first. ? Electronically signed by: Rocael Villatoro MD, [facility] ([phone]), at 06/05/2021 1:27 PM Narrative 06/05/2021 1:27 [...] patients who have questions please contactthe health patient care representative that requested your imaging first. Electronically signed by: Rocael Villatoro MD, [facility]([phone]), at 06/05/2021 1:27 PM Deborah Quiroga APRN IMG MAMMO ORDERABLE S documented in this encounter Visit Diagnoses Not on filedocumented in this encounter Care Teams Reinforcing Steel Placer Relationship Specialty Start Date End Date Deborah Quiroga APRN PCP - General Family Medicine 03/24/16 02/04/23 documented as of this encounter
--- OUTSIDE RECORDS SUMMARY | 2024-05-02 15:13 | XMS_ITS | Encounter Summary ---
[place] [address] Care Team Providers Care Network Support Technician Name Role Phone Ashley Quirogan Cornelius ANURAG Primary Care Provider [phone] Reason for Visit * Reason Onset Date Comments Medical Care Coordination 07/27/2017 Encounter Details Date Type Department Care Team (Late st Contact Info) Description 07/27/2017 Telephone Hematology [place] [address] Alexandrea Greenwood RN Medical Care Coordination Social [...] 07/27/2017 12:25 PM EST Message received from executive secretary: Injection/Infusion Referral Call placed to [facility] @ [phone] Spoke w/ CYLINDER INSPECTOR Services to be provided for pt are: CBC/CMP DONE Q6 MONTHS X2 STARTING NOVEMBER 2017 TECH confirmed they would provide services to pt - I CALLED PT, LM. Pt orders faxed to [phone] documented in this encounter Plan of Treatment Upcoming Encounters Date Type Department Care Team (Late st Contact Info) Description 05/12/2024 9:00 AM EDT Laboratory Appointment Lab at [facility] Hematology Oncology [address] [place] [address] 05/12/2024 10:00 AM EDT Office Visit Hematology [place] [address] Markel Borjas MD [facility] [place] [address] 03/01/2025 4:15 PM EDT Office Visit Dermatology at [place] [address] [facility] [place] [address] Marek Bonilla MD [address] [address], [place] [address] documented as of this encounter Visit Diagnoses Not on filedocumented in this encounter Care Teams Network Support Technician Relationship Specialty Start Date End Date Deborah Quiroga APRN PCP - General Family Medicine 03/24/16 02/04/23 documented as of this encounter
--- OUTSIDE RECORDS SUMMARY | 2024-05-02 15:13 | XMS_ITS | Encounter Summary ---
Author Organization [facility] Address [facility] [place] [address] Care Team Providers Care Entry Level Business Analyst Name Role Phone Deborah Quiroga ANURAG Primary Care Provider [phone] Encounter Details Date Type Department Care Team (Late st Contact Info) Description 06/18/2017 External Results [place]ology [place] [phone] Alexandrea Greenwood RN Neutropenia, unspecified type Social [...] [facility] [place] [address] [place] [address] 05/12/2024 10:00 AM EDT Office Visit [place] [address] Markel Borjas MD [facility] HEMATOLOGY [place] [address] 03/01/2025 4:15 PM EDT Office Visit Dermatology at [address] [address] Marek Bonilla MD [address] [place] [address] documented as of this encounter Procedures Procedure [...] in this encounter Care Teams Entry Level Business Analyst Relationship Specialty Start Date End Date Deborah Quiroga APRN PCP - General Family Medicine 03/24/16 02/04/23 documented as of this encounter
--- OUTSIDE RECORDS SUMMARY | 2024-05-02 15:13 | XMS_ITS | Encounter Summary ---
[place] [address] Care Team Providers Care Cranberry Grower Name Role Phone Ashley Quirogazac Shields APRN Primary Care Provider [phone] Reason for Visit * Reason Onset Date Comments Results 12/03/2016 Encounter Details Date Type Department Care Team (Late st Contact Info) Description 12/03/2016 Telephone Hematology [place] [address] Yudith Valentine, RN Results Social History Tobacco Use Types [...] received call from Maddy at [facility] reporting critical WBC at 1.61, and ANC of 0.5. She will fax the full results to this office for review nurse notified DR Borjas of above results documented in this encounter Plan of Treatment Upcoming Encounters Date Type Department Care Team (Late st Contact Info) Description 05/12/2024 9:00 AM EDT Laboratory Appointment Lab at [place] Hematology Oncology [address] [place] [address] 05/12/2024 10:00 AM EDT Office Visit Hematology [place] [address] Markel Borjas MD [facility] [address] HEMATOLOGY [place] [address] 03/01/2025 4:15 PM EDT Office Visit Dermatology at [place] [address] [facility] [place] [address] Marek Bonilla MD [address] [place] [address] documented as of this encounter Visit Diagnoses Not on filedocumented in this encounter Care Teams Cranberry Grower Relationship Specialty Start Date End Date Deborah Quiroga APRN PCP - General Family Medicine 03/24/16 02/04/23 documented as of this encounter
--- OUTSIDE RECORDS SUMMARY | 2024-05-02 15:13 | XMS_ITS | Encounter Summary ---
Author Organization [facility] [place] [address] Care Team Providers Care J2Ee Architect Name Role Phone Deborah Quiroga APRN Primary Care Provider [phone] Encounter Details Date Type Department Care Team (Late st Contact Info) Description 06/08/2022 Ancillary Procedure Radiology Library [place] [facility] [address] Deborah Quiroga APRN [address] [place] [phone] Social History Tobacco Use Types Packs/Day [...] 9:00 AM EDT Laboratory Appointment Lab at [facility] Hematology Oncology [address] [place] [address] 05/12/2024 10:00 AM EDT Office Visit Hematology [place] [address] Markel Borjas MD [facility] HEMATOLOGY [place] [address] 03/01/2025 4:15 PM EDT Office Visit Dermatology at [place] [address] [place] [address] Marek Bonilla MD [address] [facility] [facility] [address], [place] [address] documented as of this encounter Procedures Procedure Name Priority Date/Time Associated Diagnosis Comments FILM LIBRARY STORAGE ONLY DX SPINE Routine 06/08/2022 12:00 AM EST documented in this encounter Results * Film Library- Storage Only DX Spine (06/08/2022 12:00 AM EST) Narrative [facility] - 06/18/2022 10:57 AM EST This exam is auto-finalizing. It's purpose is for storage only. Deborah Quiroga APRN IMG FILM LIBRARY OR DERABLES Performing Organization Address City/State/[facility] de Phone Number [place], [place] documented in this encounter Visit Diagnoses Not on filedocumented in this encounter Care Teams J2Ee Architect Relationship Specialty Start Date End Date Deborah Quiroga APRN PCP - General Family Medicine 03/24/16 02/04/23 documented as of this encounter
--- OUTSIDE RECORDS SUMMARY | 2024-05-02 15:13 | XMS_ITS | Encounter Summary ---
[place] [address] Care Team Providers Care Flour Inspector Name Role Phone JunaidDeborah APRN Primary Care Provider [phone] Reason for Visit * Reason Comments Follow-up Encounter Details Date Type Department Care Team (Late st Contact Info) Description 01/10/2021 4:30 PM EDT Office Visit Dermatology at [place] [address] [facility] [place] [address] Marek Bonilla MD [address] [facility], [place] A DERMATOLOGY [place], [place] [phone] Rosacea Social History Tobacco Use Types Packs/Day [...] cutaneous and ocular 2. Previously told by solution engineer that she had corneal tears from [...] 3 refills. Will call this in her [facility] pharmacy in [place] 3. Continue metronidazole 0.75% gel applying once [...] [facility] H[facility] Oncology [address] [place] [address] 05/12/2024 10:00 AM EDT Office Visit [place] [address] Markel Borjas MD [facility] [address] [place] [address] 03/01/2025 4:15 PM EDT Office Visit Dermatology at [place] [address] [facility] [place] [address] Marek Bonilla MD [address] [place] [address] documented as of this encounter Visit Diagnoses Diagnosis Rosacea documented in this encounter Care Teams Flour Inspector Relationship Specialty Start Date End Date Deborah Quiroga, ANURAG PCP - General Family Medicine 03/24/16 02/04/23 documented as of this encounter
--- OUTSIDE RECORDS SUMMARY | 2024-05-02 15:13 | XMS_ITS | Encounter Summary ---
Author Organization [facility] [place] [address] Care Team Providers Care Fishing Tackle Repairer Name Role Phone Deborah Quiroga APRN Primary Care Provider [phone] Encounter Details Date Type Department Care Team (Late st Contact Info) Description 06/17/2022 Ancillary Procedure Radiology Library [place] [address] Deborah Quiroga APRN [address] [place] [phone] Social History Tobacco Use Types Packs/Day [...] [facility] [place] On[place] [address] [place] [address] 05/12/2024 10:00 AM EDT Office Visit [place]ology [place] [phone] Markel Borjas MD [facility] HEMATOLOGY [place] [address] 03/01/2025 4:15 PM EDT Office Visit Dermatology at [place] [address] [place] [phone] Marek Bonilla MD [address], [address] [place] [address] documented as of this encounter Procedures Procedure Name Priority Date/Time Associated Diagnosis Comments FILM LIBRARY STORAGE ONLY MR SPINE Routine 06/17/2022 12:00 AM EST documented in this encounter Results * Film Library- Storage Only MR Spine (06/17/2022 12:00 AM EST) Narrative [facility] - 06/18/2022 11:00 AM EST This exam is auto-finalizing. It's purpose is for storage only. Deborah Quiroga APRN IMG FILM LIBRARY OR DERABLES Performing Organization Address City/State/[facility] de Phone Number [place], [place] documented in this encounter Visit Diagnoses Not on filedocumented in this encounter Care Teams Fishing Tackle Repairer Relationship Specialty Start Date End Date Deborah Quiroga APRN PCP - General Family Medicine 03/24/16 02/04/23 documented as of this encounter
--- OUTSIDE RECORDS SUMMARY | 2024-05-02 15:13 | XMS_ITS | Encounter Summary ---
[place] [address] Care Team Providers Care Video Tape Editor Name Role Phone Junaid Deborah Shields APRN Primary Care Provider [phone] Reason for Visit * Reason Comments Annual Exam Encounter Details Date Type Department Care Team (Late st Contact Info) Description 01/09/2022 3:15 PM EDT Office Visit Dermatology at [address] [address] Marek Bonilla MD [address] [facility], [place] DERMATOLOGY [place], [place] [id number] Rosacea Social History Tobacco Use Types Packs/Day [...] cutaneous and ocular 2. Previously told by senior statistical programmer that she had corneal tears from her [...] refills. We will call this into her [facility] pharmacy in [place] 3. Continue metronidazole 0.75% gel applying every other day after washing as needed. We will give her 45 g with 5 refills. 4. Return to clinic in a year for repeat check CC: Deborah Quiroga APRN documented in this encounter Plan of Treatment Upcoming Encounters Date Type Department Care Team (Late st Contact Info) Description 05/12/2024 9:00 AM EDT Laboratory Appointment Lab at [facility] Hematology Oncology [address] [place] [address] 05/12/2024 10:00 AM EDT Office Visit Hematology [place] [address] Markel Borjas MD [facility] [address] [place] [address] 03/01/2025 4:15 PM EDT Office Visit Dermatology at [place] [address] [facility] [place] [address] Marek Bonilla MD [address] [facility], [place] [address] documented as of this encounter Visit Diagnoses Diagnosis Rosacea documented in this encounter Care Teams Video Tape Editor Relationship Specialty Start Date End Date Deborah Quiroga APRN PCP - General Family Medicine 03/24/16 02/04/23 documented as of this encounter
--- OUTSIDE RECORDS SUMMARY | 2024-05-02 15:13 | XMS_ITS | Encounter Summary ---
Author Organization [facility] [place] [address] Care Team Providers Care Hair Sample Matcher Name Role Phone Deborah Quiroga APRN Primary Care Provider [phone] Encounter Details Date Type Department Care Team (Late st Contact Info) Description 06/05/2021 Interpretation Only [address] [address] Deborah Quiroga APRN [address] [phone] Social History Tobacco Use Types Packs/Day Years [...] 9:00 AM EDT Laboratory Appointment Lab at [facility] Hematology Oncology [address] [place] [address] 05/12/2024 10:00 AM EDT Office Visit Hematology [place] [address] Markel Borjas MD [facility] [address] [place] [address] 03/01/2025 4:15 PM EDT Office Visit Dermatology at [place] [address] [place] [phone] Marek Bonilla MD [address], [place] [address] documented as of this encounter Procedures Procedure Name Priority Date/Time Associated Diagnosis Comments MAMMO SCREENING CAD BILATERAL Routine 06/05/2021 11:42 AM EDT documented in this encounter Results * Mammo Screening Cad Bilateral (06/05/2021 11:42 AM EDT) PT CLASS O DH RAD ADMITDTTM DH RAD PT DH RAD INFO [id number]^EV ERETT^DEBORAH^E DH RAD EXAM DESC MADDSC^SCREEN MAMMO [...] questions please contact the health long term acute care registered nurse that requested your imaging first. ? Electronically signed by: Rocael Villatoro MD, [facility] ([phone]), at 06/05/2021 1:27 PM Narrative 06/05/2021 1:27 [...] have questions please contactthe health long term acute care registered nurse that requested your imaging first. Electronically signed by: Rocael Villatoro MD, [facility]([phone]), at 06/05/2021 1:27 PM Deborah Quiroga APRN IMG MAMMO ORDERABLE S documented in this encounter Visit Diagnoses Not on filedocumented in this encounter Care Teams Hair Sample Matcher Relationship Specialty Start Date End Date Deborah Quiroga APRN PCP - General Family Medicine 03/24/16 02/04/23 documented as of this encounter
--- OUTSIDE RECORDS SUMMARY | 2024-05-02 15:13 | XMS_ITS | Encounter Summary ---
[place] [address] Care Team Providers Care Game Artist Name Role Phone Ashley Quirogan Cornelius ANURAG Primary Care Provider [phone] Reason for Visit * Reason Comments Skin Check Encounter Details Date Type Department Care Team (Late st Contact Info) Description 11/11/2020 10:45 AM EDT Office Visit Dermatology at [address] [place] [address] Marek Bonilla MD [address] [facility], [address] A DERMATOLOGY [place], [place] [phone] Rosacea; Acrochordon Social History Tobacco Use Types [...] Discussed the possibility of getting this through [employer] or from the [facility] pharmacy if necessary. She has not yet [...] 9:00 AM EDT Laboratory Appointment Lab at [facility] Hematology Oncology [address] [place] [address] 05/12/2024 10:00 AM EDT Office Visit Hematology [place] [address] Markel Borjas MD [facility] [address] HEMATOLOGY [place] [address] 03/01/2025 4:15 PM EDT Office Visit Dermatology at [place] [address] [facility] [place] [address] Marek Bonilla MD [address] [facility], [place] [address] documented as of this encounter Visit Diagnoses Diagnosis Rosacea Acrochordon Unspecified hypertrophic and atrophic condition of skin documented in this encounter Care Teams Game Artist Relationship Specialty Start Date End Date Deborah Quiroga APRN PCP - General Family Medicine 03/24/16 02/04/23 documented as of this encounter
--- OUTSIDE RECORDS SUMMARY | 2024-05-02 15:13 | XMS_ITS | Encounter Summary ---
Author Organization [facility] [place] [address] Care Team Providers Care Respiratory Therapy Director Name Role Phone Deborah Quiroga APRN Primary Care Provider [phone] Encounter Details Date Type Department Care Team (Late st Contact Info) Description 06/05/2021 Interpretation Only [address] [address] Deborah Quiroag APRN [address] [phone] Social History Tobacco Use Types Packs/Day Years [...] Laboratory Appointment Lab at [facility] Hematology Oncology [address] [place] [address] 05/12/2024 10:00 AM EDT Office Visit Hematology [place] [address] Markel Borjas MD [facility] [address] [place] [address] 03/01/2025 4:15 PM EDT Office Visit Dermatology at [place] [address] [place] [address] Marek Bonilla MD [address], [place] [address] documented as of this encounter Procedures Procedure Name Priority Date/Time Associated Diagnosis Comments DXA CENTRAL SPINE, HIP, AND/OR WHOLE BODY (GENERIC) Routine 06/05/2021 11:58 AM EDT documented in this encounter Results * DXA Central Spine, Hip, and/or Whole Body (Generic) (06/05/2021 11:58 AM EDT) PT CLASS O RAD ADMITDTTM RAD PT RAD INFO [id number]^E VERETT^DEBORAH ^E RAD EXAM DESC XDXAC^DEXA SCAN [...] who have questions please contact the health landcare facilitator that requested your imaging first. ? Electronically signed by: Rocael Villatoro MD, [facility] ([phone]), at 06/05/2021 12:00 PM Narrative 06/05/2021 12:00 [...] patients who have questions please contactthe health landcare facilitator that requested your imaging first. Electronically signed by: Rocael Villatoro MD, [facility]([phone]), at 06/05/2021 12:00 PM Deborah LLAMAS DEXA ORDERABLES documented in this encounter Visit Diagnoses Not on filedocumented in this encounter Care Teams Respiratory Therapy Director Relationship Specialty Start Date End Date Deborah Quiroga APRN PCP - General Family Medicine 03/24/16 02/04/23 documented as of this encounter
--- OUTSIDE RECORDS SUMMARY | 2024-05-02 15:13 | XMS_ITS | Encounter Summary ---
Author Organization [facility] Address [facility] [place] [address] Care Team Providers Care Institutional Asset Manager Name Role Phone Deborah Quiroga APRN Primary Care Provider [phone] Encounter Details Date Type Department Care Team (Late st Contact Info) Description 03/01/2020 11:30 AM EDT Office Visit Hematology [place] [phone] Patrick Borjas MD [facility] [address] [place] [address] Neutropenia, unspecified type Social History Tobacco Use [...] 03/01/2020 11:30 AM EDT Hematology Outpatient Clinic [facility] Hematology Outpatient Consult Note CC: 60 year [...] TOUCH PREP, CLOT SECTION, CORE ??BIOPSY); [OSR# [id number], COLLECTED 06/23/2016, 19 SLIDES]: ?1. 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 Extremities: No edema. Labs: Hgb= 12.4 Wtpi=834 ANC= 2.5 Imaging As above - reviewed [...] [facility] [address] [place] [address] 05/12/2024 10:00 AM EDT Office Visit Hematology [place] [address] Patrick Borjas MD [facility] [address] [place] [address] 03/01/2025 4:15 PM EDT Office Visit Dermatology at [place] [address] [place] [address] Marek Bonilla MD [address] [facility], [place] [address] documented as of this encounter Visit Diagnoses Diagnosis Neutropenia, unspecified type documented in this encounter Care Teams Institutional Asset Manager Relationship Specialty Start Date End Date Deborah Quiroga APRN PCP - General Family Medicine 03/24/16 02/04/23 documented as of this encounter
--- OUTSIDE RECORDS SUMMARY | 2024-05-02 15:13 | XMS_ITS | Encounter Summary ---
[place] [address] Care Team Providers Care Batting Machine Operator Insulation Name Role Phone Deborah Quiroga APRN Primary Care Provider [phone] Reason for Referral * Consultation (Routine) - Closed Specialty Diagnoses / Procedures Referred By Contac t Referred To Contact Rheumatology Diagnoses Positive FRANCISCO (antinuclear antibody) Arthralgia, unspecified joint Sandy Wu APRN [address] [place] [address] [facility] Rheumatology [address] [place] [phone] Referral ID Status Reason Start Date Expiration Date V isits Requested Visits Authorized [id number] Closed Consult, Test & Treat PCP Updated and/or Approved 01/01/2022 01/01/2023 6 6 Encounter Details Date Type Department Care Team (Latest Contact Info) Description 01/01/2022 Transcribe Orders eDH Incoming Referrals [phone] Sandy Wu APRN [address] [place], [place] [phone] Positive FRANCISCO (antinuclear antibody); Arthralgia, unspecified joint [...] [facility] Hematology Oncology [address] [place] [address] 05/12/2024 10:00 AM EDT Office Visit [place]ematology [place] [address] Markel Borjas MD [facility] [address] [place] [address] 03/01/2025 4:15 PM EDT Office Visit Dermatology at [place] [address] [facility] [place] [address] Marek Bonilla MD [address], [place] [address] Scheduled Referrals Name Type Priority Associated Diagnoses Orde r Schedule Referral to Rheumatology Outpatient Referral Routine Positive FRANCISCO (antinuclear antibody) Arthralgia, unspecified joint Ordered: 01/01/2022 documented as of this encounter Visit Diagnoses Diagnosis Positive FRANCISCO (antinuclear antibody) Other and unspecified nonspecific immunological findings Arthralgia, unspecified joint documented in this encounter Care Teams Batting Machine Operator Insulation Relationship Specialty Start Date End Date Deborah Quiroga APRN PCP - General Family Medicine 03/24/16 02/04/23 documented as of this encounter
--- OUTSIDE RECORDS SUMMARY | 2024-05-02 15:13 | XMS_ITS | Encounter Summary ---
Author Organization [facility] Address [facility] [place] [address] Care Team Providers Care Switch Crew Supervisor Name Role Phone Deborah Quiroga APRN Primary Care Provider [phone] Encounter Details Date Type Department Care Team (Late st Contact Info) Description 06/18/2017 11:00 AM EST Office Visit Hematology [place] [address] Markel Borjas MD [facility] [address] [place] [address] Neutropenia, unspecified type Social History Tobacco Use [...] 06/18/2017 11:00 AM EST Hematology Outpatient Clinic [facility] Hematology Outpatient Consult Note CC: 60 [...] TOUCH PREP, CLOT SECTION, CORE ??BIOPSY); [OSR# [id number], COLLECTED 06/23/2016, 19 SLIDES]: ?1. ??Normocellular marrow [...] a clonal lymphoproliferative or myeloproliferative disorder (OSR# [id number]) Chromosome analysis on the marrow aspirate revealed [...] working the same job and participating in [employer] patients. Past Medical/Surgical History: 1. Leukopenia -element of neutropenia, as noted above 2. Aortic Stenosis -severe -AVR surgery 3. Hypercholesterolemia 4. Depression 5. Hypertension 6. 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 Extremities: No edema. Labs: Hgb= 13 Yrjf=511 ANC= 0.6 Imaging As above - reviewed [...] AM EDT Laboratory Appointment Lab at [facility] Hematology Oncology [address] [place] [address] 05/12/2024 10:00 AM EDT Office Visit Hematology [place] [address] Markel Borjas MD [facility] [address] [place] [address] 03/01/2025 4:15 PM EDT Office Visit Dermatology at [place] [address] [address] Marek Bonilla MD [address], [place] [address] documented as of this encounter Visit Diagnoses Diagnosis Neutropenia, unspecified type documented in this encounter Care Teams Switch Crew Supervisor Relationship Specialty Start Date End Date Deborah Quiroga APRN PCP - General Family Medicine 03/24/16 02/04/23 documented as of this encounter
--- OUTSIDE RECORDS SUMMARY | 2024-05-02 15:13 | XMS_ITS | Encounter Summary ---
Author Organization [facility] Address [facility] [place] [address] Care Team Providers Care Technical Assistance Consultant Name Role Phone Junaid Deborah Shields APRN Primary Care Provider [phone] Reason for Visit * Reason Comments Schedule Office Case Pain right leg Encounter Details Date Type Department Care Team (Late st Contact Info) Description 12/11/2016 9:00 AM EDT Office Visit Hematology [place] [address] Markel Borjas MD [facility] [address] HEMATOLOGY [place] [address] Neutropenia, unspecified type Social History Tobacco Use [...] 12/11/2016 9:00 AM EDT Hematology Outpatient Clinic [facility] Hematology Outpatient Consult Note CC: 60 year [...] TOUCH PREP, CLOT SECTION, CORE ??BIOPSY); [OSR# [id number], COLLECTED 06/23/2016, 19 SLIDES]: ?1. 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 Extremities: No edema. Labs: Hgb= 13 Epmf=236 ANC= 0.5 Imaging As above - reviewed [...] [facility] Hematology Oncology [address] [place] [address] 05/12/2024 10:00 AM EDT Office Visit Hematology [place] [address] Markel Borjas MD [facility] [address] HEMAT[place] [address] 03/01/2025 4:15 PM EDT Office Visit Dermatology at [place] [address] [place] [address] Marek Bonilla MD [address] [facility] [place] [address] documented as of this encounter Results * [...] type documented in this encounter Care Teams Technical Assistance Consultant Relationship Specialty Start Date End Date Deborah Quiroga, NEUROLOGY PROFESSOR PCP - General Family Medicine 03/24/16 02/04/23 documented as of this encounter
--- OUTSIDE RECORDS SUMMARY | 2024-05-02 15:13 | XMS_ITS | Encounter Summary ---
[place] [address] Care Team Providers Care Steam And Gas Turbines Assembler Name Role Phone Deboarh Quiroga ANURAG Primary Care Provider [phone] Encounter Details Date Type Department Care Team (Late st Contact Info) Description 02/07/2020 Telephone Hematology [place] [phone] Ellen Rios RN Social History Tobacco Use [...] 02/07/2020 12:59 PM EDT Message received from drip pumper: Injection/Infusion Referral Services to be provided for pt are: CBC only at [facility]- Pt will go by 02/27 Orders faxed to [phone]). Spoke with pt. She will call [facility] directly to schedule a time that works for her. documented in this encounter Plan of Treatment Upcoming Encounters Date Type Department Care Team (Late st Contact Info) Description 05/12/2024 9:00 AM EDT Laboratory Appointment Lab at [facility] Hematology Oncology [address] [place] [address] 05/12/2024 10:00 AM EDT Office Visit Hematology [place] [address] Markel Borjas MD [facility] [address] HEMATOLOGY [place] [address] 03/01/2025 4:15 PM EDT Office Visit Dermatology at [place] [address] [place] [address] Marek Bonilla MD [address], [address] [place] [address] documented as of this encounter Visit Diagnoses Not on filedocumented in this encounter Care Teams Steam And Gas Turbines Assembler Relationship Specialty Start Date End Date Deborah Quiroga APRN PCP - General Family Medicine 03/24/16 02/04/23 documented as of this encounter
--- OUTSIDE RECORDS SUMMARY | 2024-05-02 15:13 | XMS_ITS | Encounter Summary ---
Author Organization [facility] [place] [address] Care Team Providers Care Area Relief Pilot Name Role Phone Ashley Quirogan Cornelius ANURAG Primary Care Provider [phone] Reason for Referral * Consultation (Routine) - Specialty Diagnoses / Procedures Referred By Contact Referred To Contact Cardiac Rehabilitation Diagnoses S/P AVR Alirio Esparza MD [facility] [address] [place] [address] Cardiac Rehab, [address] [place] [address] Referral ID Status Reason Start Date Expiration Date V isits Requested Visits Authorized [id number] Consult, Test & Treat 09/25/2016 03/24/2017 36 36 Reason for Visit * Auth/Cert Specialty Diagnoses / Procedures Referred By Contkrystle t Referred To Contact Diagnoses Aortic stenosis Procedures PRO REPLACE AORT VALV, PROSTH VALV @REPLACE AORTIC VALVE, OPEN, W\CPB, W\PROSTHETIC VALVE (WRVU 41.32) Referral ID Status Reason Start Date Expiration Date Visits Re quested Visits Authorized [id number] 1 1 Encounter Details Date Type Department Care Team (Latest Contact Info) Description 09/21/2016 6:08 AM EST - 09/25/2016 4:33 PM EST Hospital Encounter Inter[place] [id number] Alirio Esparza MD Aortic valve stenosis, unspecified [...] Patient Age: 61 y.o. Birthdate: 1955 Language: Puerto Rican Race: White Ethnicity: Not nor Admit Date: 09/21/2016 Discharge Date: 09/25/2016 Attending Physician: Alirio Esparza MD Follow-up Recommendations for Providers: Please continue routine management of cardiovascular risk factors including blood pressure, lipids,glucose, etc. Please note any changes to medications. Patient to follow-up with PCP, Deborah Quiroga APRN, in 1-2 weeks. Patient to follow-up with Hat Ironer, Dr. Antelmo Burrell, in two weeks. Patient to follow-up with Cardiac Surgery, Dr. Alirio Esparza, to be scheduled for before 10/19/2016, with CXR, EKG, and Echo. Inpatient Provider Contact Information: [facility] Section of Cardiac Surgery [facility] [address] FAX [phone] Discharge Diagnoses (Hospital Problems) Primary Diagnoses: Secondary [...] 41.32) performed by Alirio Esparza MD at [facility] MAIN OR ??? Pro aortoplas for supravalv sten N/A 09/21/2016 @AORTOPLASTY FOR SUPRAVALVULAR STENOSIS (WRVU 29.33) performed by Alirio Esparza MD at [facility] MAIN OR Prior To Admission Medications Prescriptions [...] Alirio Esparza and/or the Cardiac Surgery Physician Sap Manager Team may be reached at . Antibiotic prophylaxis: You will need to take antibiotics prior to many invasive tests and treatments, such as dental cleaning, which should be done every 6 months. Your primary care physician or your dentist can prescribe this medication. Please refer to the card with the [employer] [employer] Guidelines for more information. You have been provided with 3 copies of this card. Keep one for your self. Give one to your primary care physician and one to your dentist. Please refer to the [employer] Guidelines for more information. Good [...] Dr. Alirio Jones. You may use a [place] Track or treadmill but avoid any pulling [...] friends, go to a movie, go to catholic, etc. Heavy activities: No hunting, skiing, jogging, [...] should resume a low fat, low cholesterol, [employer] Diet. Driving: No driving until [...] outpatient Phase [address] [facility]. The patient agrees to a referral to this program. The referral will be sent at discharge and the patient should be contacted by the program within 1- 2 weeks from discharge. Future Appointments and Orders Future Appointments Provider Department Dept Phone 11/20/2016 11:30 AM Markel Borjas MD [facility] [phone] Future Orders Complete By Expires Echocardiogram Transthoracic([facility]) [ITF561 Custom] 10/18/2016 (Approximate) 09/18/2017 Process Instructions: If the Echocardiogram is to be PERFORMED in a location other than [place]--STOP and order [id number], Echocardiogram South/External. Scheduling Instructions: Questions: Is a Bubble Study requested?: No Does the patient have Congenital Heart Disease?: No Does patient require sedation?: None GA rationale: Should this service be billed to the research sponsor?: EKG 12 Lead [EKG1 Custom] 10/18/2016 (Approximate) 09/25/2017 Process Instructions: Scheduling Instructions: Questions: Which location will this be performed?: [place] Is a rhythm strip needed?: No If EKG Reason is Pre-op Evaluation, indicate diagnosis for surgery.: Should this service be billed to the research sponsor?: XR Chest PA & Lateral (Generic) [22527 [id number] Custom] 10/18/2016 (Approximate) 09/25/2017 Process Instructions: Scheduling Instructions: Questions: Where will study be performed?: [facility]- Radiology Portable exam?: No Reason for exam and clinical history: s/p AVReplacement, patch annuloplasty 1 month f/u Other pertinent information: Stat read required?: Date of injury if applicable: Requested Time: Referral to Cardiac Rehab [XVH124 Custom] As directed Process Instructions: If no progress note charted, please enter Clinical details in comments. Scheduling Instructions: Questions: My question or request is: s/p AVR. Cardiac rehab at [facility] Referral to Home Health - at DISCHARGE [VDM6550 CPT(R)] As directed Process Instructions: Scheduling Instructions: Comments: DOCUMENTATION FOR VNA SERVICES (INCLUDING THOSE PATIENTS WITH MEDICARE COVERAGE REQUIRING HOME VNA SERVICES AND/OR HOSPICE SERVICES) PATIENT'S LOCATION: Purnima Magalie Kirstie [address] [place] [phone] (home) No relevant phone numbers on file. Recruiting Coordinator's Name: self In discussion with the attending physician, it is certified that this patient is under their care and that they, or a Nurse Practitioner, or Physician Sap Manager who is working directly with them, [...] for services as follows: HOME HEALTH AGENCY: [facility] PHONE: [phone] FAX: [phone] RN orders: Cardiopulmonary assessment, incisional assessment, assess [...] issues please call the Cardiac SurgeryOffice at [phone] FOR MEDICARE ONLY: In discussion with the [...] AFTER 09/30/16 Signed: Crispin Aranda PA-C 09/25/2016 [facility] Section of Cardiac Surgery [facility] [address] FAX [phone] Date: 09/25/2016 CC: ANURAG Alford Caryn E, APRN [address] [place] [address] documented in this encounter Discharge Instructions * [...] Alirio Esparza and/or the Cardiac Surgery Physician Sap Manager Team may be reached at . Antibiotic prophylaxis: You will need to take antibiotics prior to many invasive tests and treatments, such as dental cleaning, which should be done every 6 months. Your primary care physician or your dentist can prescribe this medication. Please refer to the card with the [employer] [employer] Guidelines for more information. You have been provided with 3 copies of this card. Keep one for your self. Give one to your primary care physician and one to your dentist. Please refer to the [employer] Guidelines for more information. Good [...] Dr. Alirio Jones. You may use a [place] Track or treadmill but avoid any pulling [...] friends, go to a movie, go to catholic, etc. Heavy activities: No hunting, skiing, jogging, [...] should resume a low fat, low cholesterol, [employer] Diet. Driving: No driving until [...] outpatient Phase [address] [facility]. The patient agrees to a referral [...] tablet Take 81 mg by mouth daily. acetaminophen (TYLENOL) 500 mg Tablet Take 2 tablets by mouth every 6 hours as needed for Pain (Please take up to 1,000 mg every 6 hours when experiencing pain 1-1010.). 30 tablet 5 09/25/2016 multivitamin (THERAGRAN) Tablet Take 1 tablet by mouth daily. furosemide (LASIX) 20 mg [...] (Take 5mg every 4 hours for pain 6-10 as needed.) for up to 30 days. [...] PM EST Cardiac Surgery Progress Note: ID: [id number] S/p AVR, patch aortoplasty POD#2. PMH of [...] Gas) No results found for: PHART, PO2ART, POW8HPN Assessment/Plan: TPW out this am. (+) BM. [...] Signed: Crispin Aranda PA-C 09/24/2016 Team pager: [phone]; [phone] after 5pm [facility] Section of Cardiac Surgery * Leonor Henson, GRAIN OPERATIONS MANAGER - 09/23/2016 10:48 AM EST Cardiac Surgery Progress Note: ID: [id number] s/p AVR, patch aortoplasty POD#2. PMH of [...] Gas) No results found for: PHART, PO2ART, NGI0EHP Assessment/Plan: s/p AVR, patch aortoplasty POD#2. PMH [...] AM EST Cardiac Surgery Progress Note: ID: [id number] s/p AVR, patch aortoplasty POD#1. PMH of [...] NT, ND, soft. Ext: Moves all extremities. [place]itzen, well perfused. Incisions: C/D/I Tubes/Lines/Drains: PIV, leanna, [...] with outpatient services Lalitha Cohen SPTA Pager: [phone] Inpatient Physical Therapy Patient status, treatment interventions, and goals discussed with student. I am in agreement with all details and associated flowsheet rows as documented and was present for all aspects of the patient treatment session. Nerykatrina Jaramillo, [facility] Pager [phone] Problem: Acute Rehab Services Goal & Intervention Plan Goal: Bed Mobility Goal Stand Alone Therapy Goal Outcome: Ongoing (Interventions Implemented as Appropriate) 09/22/16 16109/25/16 09 Bed Mobility Goal Bed Mobility Goal, Time to Achieve 4 days -- Bed Mobility Goal, Activity Type scoot/bridge;supine to sit/sit to supine -- Bed Mobility Goal, Brewster Level independent -- Bed Mobility Goal, Additional [...] Achieve 4 days -- Gait Training Goal, Brewster Level independent -- Gait Training Goal, Distance [...] assist, home with home health Lalitha Cohen [facility] Pager: [phone] Inpatient Physical Therapy Patient status, treatment interventions, and goals discussed with student. I am in agreement with all details and associated flowsheet rows as documented and was present for all aspects of the patient treatment session. Nery Jaramillo, [facility] Pager [phone] Problem: Acute Rehab Services Goal & Intervention Plan Goal: Bed Mobility Goal Stand Alone Therapy Goal Outcome: Ongoing (Interventions Implemented as Appropriate) 09/22/16 16109/23/16 1412 Bed Mobility Goal Bed Mobility Goal, Time to Achieve 4 days -- Bed Mobility Goal, Activity Type scoot/bridge;supine to sit/sit to supine -- Bed Mobility Goal, Brewster Level independent -- Bed Mobility Goal, Additional [...] Achieve 4 days -- Gait Training Goal, Brewster Level independent -- Gait Training Goal, Distance [...] days -- Transfer Training Goal, Activity Type ohd-lu-hgiav/xqxcn-ln-dfu;oxl-tw-xjymx/udxnk-xa-dbs -- Transfer Train Goal, Brewster Level independent -- Transfer Training Goal, Additional Goal abides sternal precautions -- Transfer Training Goal, Outcome -- goal met * Consult Note - Jana Crenshaw RN - 09/23/2016 9:41 AM EST [facility] CARDIAC REHABILITATION Purnima Thacker was seen today regarding participation in the outpatient Phase [address] [facility]. The patient agrees to a referral [...] Another Service: (cardiac rehab) NICOLE HERNANDEZ, PT Pager:[phone] Inpatient Physical Therapy Problem: Acute Rehab Services Goal & Intervention Plan Goal: Bed Mobility Goal Stand Alone Therapy Goal Outcome: Ongoing (Interventions Implemented as Appropriate) 09/22/16 1611 Bed Mobility Goal Bed Mobility Goal, Time to Achieve 4 days Bed Mobility Goal, Activity Type scoot/bridge;supine to sit/sit to supine Bed Mobility Goal, Brewster Level independent Bed Mobility Goal, Additional Goal able to abide sternal precautions during transfers Goal: Gait Training Goal Stand Alone Therapy Goal Outcome: Ongoing (Interventions Implemented as Appropriate) 09/22/16 1611 Gait Training Goal Gait Training Goal, Date Established 09/22/16 Gait Training Goal, Time to Achieve 4 days Gait Training Goal, Brewster Level independent Gait Training Goal, Distance to Achieve ascend and descends 2 steps independently Goal: Goal Transfer Training Stand Alone Therapy Goal Outcome: Ongoing (Interventions Implemented as Appropriate) 09/22/16 1611 Goal Transfer Training Transfer Training Goal, Time to Achieve 4 days Transfer Training Goal, Activity Type utf-vi-lvbej/qhzjr-ow-kyf;xzm-em-ldcta/wyvpo-bf-juv Transfer Train Goal, Brewster Level independent Transfer Training Goal, Additional Goal [...] of completing AD's at home, chooses her uzvhpk-gq-qgy, Martha Thacker (home) for her [facility], 2nd choice in friend, Nitesh Leroy [place], [place] Current Coping/Education/Information Needs: patient sitting up [...] who live close by, [place], and her xulikf-cl-heo Martha Thacker who she has chosen to be her DPOAH. Also has a friend Nitesh Leroy who lives in [place], [place], also her DPOAH choice. Behavioral Health History: none on file in [facility] Substance Use/Abuse: none on file in [facility] Other Pertinent/Service Specific Information: none Health/Prescription Coverage: Primary Insurance: [employer] Secondary Insurance: none Prescription Coverage: yes, per patient no issues Preferred Pharmacy: ?? Other: none Primary Care Provider: Deborah Quiroga, GRAIN OPERATIONS MANAGER [phone] Patient/Caregiver Goals of Treatment: per medical team recommendations at discharge for CT surgery Potential Needs for Transition of Care: Rehab/SNF: TBD Home Health: TBD DME: no Dialysis: no Community Resources: non3 Transportation: ride home with a friend Other: none Anticipated Barriers to Discharge/Special Considerations: none anticipated at this time Plan: patient will need VNA services at discharge. The patient/printing sales representative has been provided a list of Home Health Agencies/DME vendors which servetheir preferred geographic area. A letter describing our affiliations was reviewed with them and they were educated about their right to choose where referrals are placed. Patient requests referral to: [facility] [employer]. PHONE: [phone] FAX: [phone] Expected date of discharge: Fri/Sat? CM called VNA to confirm referral, talked with VALDO Bunn/intake who stated she was familiar w/patient & would monitor her progress through curaspan. Referral routed to the Errand Runner for matching with agency/vendor and to provide any required information. A member of the Care Management team will continue to monitor progress, follow for continuity of care and assist with transition of care planning. Amanda Moreno RN Pager: [phone] * Op Note - Alirio Esparza MD - 09/21/2016 12:53 PM EST 09/23/2016 Purnima Thacker 1955 [id number] Preoperative Diagnosis: Symptomatic aortic stenosis Postoperative Diagnosis: Symptomatic aortic stenosis Procedure: Aortic valve replacement: Bovine Pericardial 25 mm Surgeon: Alirio Esparza M.D. Sap Manager: Philip BALL Anesthesia: General endotracheal anesthesia [...] were correct. * OR Attestation - Alirio sEparza MD - 09/21/2016 12:19 PM EST Attestation: Case Date: 09/21/2016 I was present and I participated during the entire procedure (does not need to include opening and closing). ALIRIO ESPARZA MD 09/21/2016 * Brief Op Note - Alirio Esparza MD - 09/21/2016 12:19 PM EST Brief Operative Note Patient Name: Purnima Thacker : [id number] MR#: [id number] Case Date: 09/21/2016 Surgeon: Surgeon(s) and Role: * Alirio Esparza MD - Primary * Nico Palacios PA - Physician Sap Manager Preoperative diagnosis: Postoperative diagnosis: Procedure(s) (LRB): [...] Appointment Lab at [facility] Hematology Oncology [address] [place] [address] 05/12/2024 10:00 AM EDT Office Visit [place]ology [place] [address] Markel Borjas MD [facility] [address] [place] [address] 03/01/2025 4:15 PM EDT Office Visit Dermatology at [address] [place] [address] Marek Bonilla MD [address], [place] [address] Scheduled Orders Name Type Priority Associated Diagnoses [...] IMPLANTABLE DEVICES SCAN 09/26/2016 12:00 AM EST NATIONAL SERVICE OFFICER SCAN 09/26/2016 12:00 AM EST POTASSIUM [...] SCAN EXT O RDR/RSLT * SCAN DOC: NATIONAL SERVICE OFFICER (09/26/2016 12:00 AM EST) Anatomical Region Laterality Modality Other Narrative 09/26/2016 12:00 AM EST Ordered by an unspecified provider. Scanning Provider MEDIA MGR SCAN EXT O RDR/RSLT * Potassium (09/25/2016 4:32 AM EST) Pathologist [facility] Potassium 4.4 3.5 - 5.0 mmol/L [facility] ORDERABLE S [facility] [place] [address] * (ABNORMAL) Differential, Automated (09/24/2016 9:56 AM EST) Neutrophil % 76.8 % [facility] Neutrophil Absolute 7.79(H) 1.70 - 6.10 x10(3)/mc L [facility] Lymph % 11.1 % [facility] Lymphocytes Abs 1.1 0.9 - 3.2 x10(3)/mc L [facility] Monocyte % 8.5 % [facility] Monocyte Abs 0.9 0.3 - 0.9 x10(3)/mc L [facility] Eos % 0.5 % [facility] Eosinophils Abs 0.0 0.0 - 0.4 x10(3)/[facility] LAB[facility] Basophil % 0.2 % [facility] Baso Absolute 0.0 0.0 - 0.1 x10(3)/[facility] Immature Gran % 2.90 % [facility] Comment: Immature granulocytes(IG's)percentage and absolute count will include metamyelocytes, myelocytes, and promyelocytes. Blood smears from CBCs yielding IG's will be scanned manually for concordance. If this scan disagrees with the automated IG or if promyelocytes are noted, a manual differential will be performed. Immature Gran Absolute 0.29(H) 0.00 - 0.04 x10(3)/[facility] Blood specimen (specimen) 09/24/2016 9:56 AM EST 09/24/2016 10:04 AM EST Narrative Resulting Agency Comment Spec In Lab Alirio Esparza MD HEMATOLOGY ORDERABL ES [facility] [place] [address] * (ABNORMAL) Hemogram (09/24/2016 9:56 AM EST) White Blood Cell 10.1(H) 4.0 - 9.5 x10(3)/[facility] Red Blood Cell 2.87(L) 4.00 - 5.21 x10(6)/[facility] Hemoglobin 9.4(L) 11.7 - 15.5 gm/dL [facility] Hematocrit 28.3(L) 35.7 - 45.8 % [facility] Mean Cell Volume 98.6(H) 82.6 - 94.4 fL [facility] Mean Cell Hemoglobin 32.8(H) 27.1 - 32.0 pg [facility] Mean Cell Hemoglobin Concentration 33.2 31.7 - 35.0 gm/dL [facility] Platelet 141(L) 145 - 357 x10(3)/mc L [facility] RDW Standard Deviation 45.0 37.0 - 46.0 fL [facility] RDW coefficient of variation 12.6 11.5 - 14.1 % [facility] Mean Platelet Volume 9.4 7.6 - 12.9 fL [facility] NRBC% auto 1.1 % [facility] NRBC Absolute 0.110(H) 0.000 - 0.000 x10(3)/mc L [facility] Blood specimen (specimen) 09/24/2016 9:56 AM EST 09/24/2016 10:04 AM EST Narrative Resulting Agency Comment Spec In Lab Alirio Esparza MD HEMATOLOGY ORDERABL ES [facility] [place] [id number] * (ABNORMAL) Basic Metabolic Panel (non-fasting) (09/24/2016 9:56 AM EST) Glucose 111 65 - 199 mg/dL [facility] Comment:Diabetes: >=200 mg/d L plus symptoms Blood Urea Nitrogen 23(H) 8 - 18 mg/dL [facility] Comment:result rechecked-ART Creatinine 0.89 0.70 - 1.20 mg/dL [facility] Comment: Please note that the pediatric reference intervals supplied above were not validated at [facility]. Results from pediatric patients should be interpreted in conjunction to the patient's age, height and muscle mass. Sodium 138 135 - 145 mmol/L [facility] [...] questions. Chloride 98 98 - 107 mmol/L [facility] Carbon Dioxide 26 22 - 31 mmol/L [facility] Anion Gap 14 5 - 15 mmol/L [facility] Calcium 9.1 8.5 - 10.5 mg/dL [facility] [...] the following links into your internet browser. [email or web address]/DHnkdep http://[employer]/DHMCnkf Blood specimen (specimen) 09/24/2016 9:56 AM EST 09/24/2016 10:04 AM EST Narrative Resulting Agency Comment Spec In Lab Alirio Esparza MD CHEMISTRY ORDERABLE S [facility] [place] [address] * XR Chest PA & Lateral (Generic) [...] EST) Potassium 4.5 3.5 - 5.0 mmol/L [facility] [...] ORDERABLE S [facility] [place] [address] * POCT Glucose (09/22/2016 8:17 AM EST) Glucose, POC 131 65 - 199 mg/dL [facility] Comment: Supplemental ranges: <140 mg/dL before meals <180 mg/dL all other times of the day Blood specimen (specimen) 09/22/2016 8:17 AM EST 09/22/2016 8:17 AM EST Narrative Authorizing Provider Result Slade Esparza MD POINT OF CARE TEST ORDERABLES [facility] [place] [address] * POCT Glucose (09/22/2016 4:01 AM EST) [facility] Glucose, POC 135 65 - 199 mg/dL [facility] Comment: Supplemental ranges: <140 mg/dL before meals <180 mg/dL all other times of the day Blood specimen (specimen) 09/22/2016 4:01 AM EST 09/22/2016 4:01 AM EST Alirio Esparza MD POINT OF CARE TEST ORDERABLES Performing Organization Address [facility] Co de Phone Number [facility] [place] [address] * Scan, Peripheral Blood (09/22/2016 4:00 AM EST) [facility] Plat estimate Normal [facility] RBC Morphology Abnormal [facility] Macrocyte 1-5 /HPF [facility] Plat, Giant Less than 1 /HPF [facility] Blood specimen (specimen) 09/22/2016 4:00 AM EST 09/22/2016 4:34 AM EST Narrative Resulting Agency Comment Spec In Lab Alirio Esparza MD HEMATOLOGY ORDERABL ES Performing Organization Address [facility] Co de Phone Number [facility] [place] [address] * Electrolytes panel (09/22/2016 4:00 AM EST) [facility] Sodium 145 135 - 145 mmol/L [facility] Potassium 4.4 3.5 - 5.0 mmol/L [facility] Comment: Please note: ??Patients with WBC >100,000 may have falsely elevated Potassium levels. ??For accurate Potassium quantification in these patients send serum separator tube (gold top) for subsequent determinations. ??Contact the Clinical Chemistry Laboratory if there are any questions. Chloride 107 98 - 107 mmol/L [facility] Carbon Dioxide 24 22 - 31 mmol/L [facility] Anion Gap 14 5 - 15 mmol/L [facility] Blood specimen (specimen) Venous Draw / Unknown 09/22/2016 4:00 AM EST 09/22/2016 4:34 AM EST Narrative Resulting Agency Comment Spec In Lab Alirio Esparza MD CHEMISTRY ORDERABLE S [facility] [place] [address] * (ABNORMAL) Differential, Automated (09/22/2016 4:00 AM EST) Neutrophil % 70.9 % [facility] Neutrophil Absolute 5.33 1.70 - 6.10 x10(3)/ L [facility] Lymph % 9.1 % [facility] Lymphocytes Abs 0.7(L) 0.9 - 3.2 x10(3)/[facility] Monocyte % 18.0 % [facility] Monocyte Abs 1.4(H) 0.3 - 0.9 x10(3)/ L [facility] Eos % 0.0 % [facility] Eosinophils Abs 0.0 0.0 - 0.4 x10(3)/[facility] Basophil % 0.1 % [facility] Baso Absolute 0.0 0.0 - 0.1 x10(3)/ L [facility] Immature Gran % 1.90 % [facility] Comment: Immature granulocytes(IG's)percentage and absolute count will include metamyelocytes, myelocytes, and promyelocytes. Blood smears from CBCs yielding IG's will be scanned manually for concordance. If this scan disagrees with the automated IG or if promyelocytes are noted, a manual differential will be performed. Immature Gran Absolute 0.14(H) 0.00 - 0.04 x10(3)/ L [facility] Blood specimen (specimen) 09/22/2016 4:00 AM EST 09/22/2016 4:34 AM EST Narrative Resulting Agency Comment Spec In Lab Alirio Esparza MD HEMATOLOGY ORDERABL ES Performing Organization Address City/[facility]/ZIP Co de Phone Number [facility] [place] [address] * (ABNORMAL) Hemogram (09/22/2016 4:00 AM EST) White Blood Cell 7.5 4.0 - 9.5 x10(3)/mc L [facility] Red Blood Cell 2.93(L) 4.00 - 5.21 x10(6)/mc L [facility] Hemoglobin 9.2(L) 11.7 - 15.5 gm/dL [facility] Hematocrit 28.0(L) 35.7 - 45.8 % [facility] Mean Cell Volume 95.6(H) 82.6 - 94.4 fL [facility] Mean Cell Hemoglobin 31.4 27.1 - 32.0 pg [facility] Mean Cell Hemoglobin Concentration 32.9 31.7 - 35.0 gm/dL [facility] Platelet 161 145 - 357 x10(3)/mc L [facility] RDW Standard Deviation 44.0 37.0 - 46.0 fL [facility] RDW coefficient of variation 12.6 11.5 - 14.1 % [facility] Mean Platelet Volume 9.3 7.6 - 12.9 fL [facility] NRBC% auto 0.3 % [facility] NRBC Absolute 0.020(H) 0.000 - 0.000 x10(3)/mc L [facility] Blood specimen (specimen) 09/22/2016 4:00 AM EST 09/22/2016 4:34 AM EST Narrative Resulting Agency Comment Spec In Lab Alirio Esparza MD HEMATOLOGY ORDERABL ES [facility] [place] [address] * (ABNORMAL) Cardiac Enzymes (09/22/2016 4:00 AM EST) Pathologist [facility] Troponin-T 0.13(H) <=0.03 ng/mL [facility] Comment: 0.03 ng/mL: Represents the [...] consensus document of the Joint Society of Cardiology/[place] College of [employer] Committee for the redefinition of myocardial infarction. ??Journal of the [place] College of Cardiology 2000; 36: 959-969] Creatine Kinase 338(H) 0 - 160 unit/L [facility] Blood specimen (specimen) 09/22/2016 4:00 AM EST 09/22/2016 4:34 AM EST Narrative Resulting Agency Comment Spec In Lab Alirio Esparza MD CHEMISTRY ORDERABLE S [facility] [place] [address] * (ABNORMAL) Glucose, fasting (09/22/2016 4:00 AM EST) Pathologist [facility] Glucose Fasting 137(H) 65 - 99 mg/dL [facility] Comment: ?Fasting* Glucose Interpretive Criteria [...] of Diabetes Mellitus, Position Statement from the [place] [employer] Association. ??Diabetes Care, Volume 33, Supplement 1, Aug 2009 Blood specimen (specimen) 09/22/2016 4:00 AM EST 09/22/2016 4:34 AM EST Narrative Resulting Agency Comment Spec In Lab Alirio Esparza MD CHEMISTRY ORDERABLE S Performing Organization Address [facility] Co de Phone Number [facility] [place] [address] * (ABNORMAL) Creatinine (09/22/2016 4:00 AM EST) [facility] Signature Creatinine 0.69(L) 0.70 - 1.20 mg/dL [facility] Comment: Please note that the pediatric reference intervals supplied above were not validated at [facility]. Results from pediatric patients [...] the following links into your internet browser. [email or web address] Blood specimen (specimen) 09/22/2016 4:00 AM EST 09/22/2016 4:34 AM EST Narrative Resulting Agency Comment Spec In Lab Alirio Esparza MD CHEMISTRY ORDERABLE S Performing Organization Address [facility] Co de Phone Number [facility] [place] [address] * BUN (09/22/2016 4:00 AM EST) Blood Urea Nitrogen 10 8 - 18 mg/dL [facility] Blood specimen (specimen) 09/22/2016 4:00 AM EST 09/22/2016 4:34 AM EST Narrative Resulting Agency Comment Spec In Lab Alirio Esparza MD CHEMISTRY ORDERABLE S Performing Organization Address City/[facility]/ZIP Co de Phone Number [facility] [place] [address] * POCT Glucose (09/21/2016 9:59 PM EST) Glucose, POC 146 65 - 199 mg/dL [facility] Comment: Supplemental ranges: <140 mg/dL before meals <180 mg/dL all other times of the day Blood specimen (specimen) 09/21/2016 9:59 PM EST 09/21/2016 9:59 PM EST Alirio Esparza MD POINT OF CARE TEST ORDERABLES Performing Organization Address [facility]/ZIP Co de Phone Number [facility] [place] [address] * POCT Glucose (09/21/2016 7:26 PM EST) Glucose, POC 152 65 - 199 mg/dL [facility] Comment: Supplemental ranges: <140 mg/dL before meals <180 mg/dL all other times of the day Blood specimen (specimen) 09/21/2016 7:26 PM EST 09/21/2016 7:26 PM EST Alirio Esparza MD POINT OF CARE TEST ORDERABLES Performing Organization Address City/[facility]/ZIP Co de Phone Number [facility] [place] [address] * POCT Glucose (09/21/2016 6:00 PM EST) Glucose, POC 146 65 - 199 mg/dL [facility] Comment: Supplemental ranges: <140 mg/dL before meals <180 mg/dL all other times of the day Blood specimen (specimen) 09/21/2016 6:00 PM EST 09/21/2016 6:00 PM EST Alirio Esparza MD POINT OF CARE TEST ORDERABLES [facility] [place] [address] * (ABNORMAL) BLOOD GAS 2 ARTERIAL (09/21/2016 4:42 PM EST) pH, Arterial 7.35(L) 7.35 - 7.45 [facility] PCO2, Arterial 48(H) 35 - 45 mmHg [facility] PO2, Arterial 108(H) 85 - 104 mmHg [facility] Bicarbonate, Arterial 26.0 20.0 - 26.0 mmol/L [facility] Base Excess, Arterial 0.5 -3.0 - 3.0 mmol/L [facility] Hgb Blood Gas 10.4(L) 11.7 - 15.5 gm/dL [facility] Oxyhemoglobin, Arterial 96.2 94.0 - 97.0 % [facility] Carboxyhemoglob in, Arterial 0.0 % [facility] Comment: Nonsmokers: 0.5-1.5% COHB Smokers: Variable, but usually less than 10% Toxic: 20-30% COHB Lethal: Greater than 60% COHB Methemoglobin, Arterial 0.7 <=1.5 % [facility] Na Whole Blood 139 135 - 145 mmol/L [facility] K Whole Blood 4.2 3.5 - 5.0 mmol/L [facility] Comment: Please note: Patients with WBC >100,000 may have falsely elevated Potassium levels. Contact the Clinical Chemistry Laboratory if there are any questions. ICa Whole Blood 1.13(L) 1.15 - 1.33 mmol/L [facility] Comment: Note: ??Total bilirubin higher than 20 mg/dL may lead to falsely low ionized calcium. CL Whole Blood 106 98 - 107 mmol/L [facility] Gluc Whole Bld 147 65 - 199 mg/dL [facility] Comment:Diabetes: >=200 mg/d L plus symptoms. Lactate WB 1.2 0.5 - 2.2 mmol/L [facility] FIO2 Art 40 % [facility] PF Ratio Art 270 [facility] Blood specimen (specimen) 09/21/2016 4:42 PM EST 09/21/2016 4:42 PM EST Alirio Esparza MD POINT OF CARE TEST ORDERABLES Performing Organization Address [facility] Co de Phone Number [facility] [place] [address] * POCT Glucose (09/21/2016 4:07 PM EST) Glucose, POC 150 65 - 199 mg/dL [facility] Comment: Supplemental ranges: <140 mg/dL before meals <180 mg/dL all other times of the day Blood specimen (specimen) 09/21/2016 4:07 PM EST 09/21/2016 4:07 PM EST Alirio Esparza MD POINT OF CARE TEST ORDERABLES Performing Organization Address [facility] Co de Phone Number [facility] [place] [address] * (ABNORMAL) Hemoglobin (09/21/2016 4:05 PM EST) Hemoglobin 9.9(L) 11.7 - 15.5 gm/dL [facility] Blood specimen (specimen) 09/21/2016 4:05 PM EST 09/21/2016 4:20 PM EST Narrative Resulting Agency Comment Spec In Lab Alirio Esparza MD HEMATOLOGY ORDERABL ES Performing Organization Address [facility] Co de Phone Number [facility] [place] [address] * Potassium (09/21/2016 4:05 PM EST) Potassium 4.6 3.5 - 5.0 mmol/L [facility] MD CHEMISTRY ORDERABLE S Performing Organization Address City/[facility]/ZIP Co de Phone Number [facility] [place] [address] * POCT Glucose (09/21/2016 2:52 PM EST) Glucose, POC 117 65 - 199 mg/dL [facility] Comment: Supplemental ranges: <140 mg/dL before meals <180 mg/dL all other times of the day Blood specimen (specimen) 09/21/2016 2:52 PM EST 09/21/2016 2:52 PM EST Alirio Esparza MD POINT OF CARE TEST ORDERABLES Performing Organization Address City/[facility]/ZIP Co de Phone Number [facility] [place] [address] * POCT Glucose (09/21/2016 1:51 PM EST) Glucose, POC 108 65 - 199 mg/dL [facility] Comment: Supplemental ranges: <140 mg/dL before meals <180 mg/dL all other times of the day Blood specimen (specimen) 09/21/2016 1:51 PM EST 09/21/2016 1:51 PM EST Alirio Espazra MD POINT OF CARE TEST ORDERABLES Performing Organization Address City/[facility]/ZIP Co de Phone Number [facility] [place] [address] * POCT Glucose (09/21/2016 12:54 PM EST) Glucose, POC 128 65 - 199 mg/dL [facility] Comment: Supplemental ranges: <140 mg/dL before meals <180 mg/dL all other times of the day Blood specimen (specimen) 09/21/2016 12:54 PM EST 09/21/2016 12:54 PM EST Alirio Esparza MD POINT OF CARE TEST ORDERABLES [facility] [place] [address] * EKG 12 Lead (09/21/2016 12:26 PM EST) Ventricular rate 87 BPM MUSE SYSTEM Atrial Rate 87 BPM MUSE SYSTEM P-R Interval 256 ms MUSE SYSTEM QRS Duration 90 ms MUSE SYSTEM Q-T Interval 406 ms MUSE SYSTEM QTC Calculated (Bezet) 488 ms MUSE SYSTEM Calculated P [place] 24 degrees MUSE SYSTEM Calculated R [place] 21 degrees MUSE SYSTEM Calculated T [place] -5 degrees MUSE SYSTEM INTERPRETATION Sinus rhythm [...] course of the esophagus and below the [id number]. There is a right IJ PA catheter [...] the course of theesophagus and below the [id number]. There is a right IJ PA catheter [...] EST) pH, Arterial 7.41 7.35 - 7.45 [facility] PCO2, Arterial 42 35 - 45 mmHg [facility] PO2, Arterial 356(H) 85 - 104 mmHg [facility] Bicarbonate, Arterial 26.2(H) 20.0 - 26.0 mmol/L [facility] Base Excess, Arterial 1.6 -3.0 - 3.0 mmol/L [facility] Hgb Blood Gas 10.7(L) 11.7 - 15.5 gm/dL [facility] Oxyhemoglobin, Arterial 98.1(H) 94.0 - 97.0 % [facility] Carboxyhemoglob in, Arterial 0.3 % [facility] Comment: Nonsmokers: 0.5-1.5% COHB Smokers: Variable, but usually less than 10% Toxic: 20-30% COHB Lethal: Greater than 60% COHB Methemoglobin, Arterial 0.8 <=1.5 % [facility] Na Whole Blood 140 135 - 145 mmol/L [facility] K Whole Blood 3.8 3.5 - 5.0 mmol/L [facility] Comment: Please note: Patients with WBC >100,000 may have falsely elevated Potassium levels. Contact the Clinical Chemistry Laboratory if there are any questions. ICa Whole Blood 1.15(L) 1.15 - 1.33 mmol/L [facility] Comment: Note: ??Total bilirubin higher than 20 mg/dL may lead to falsely low ionized calcium. CL Whole Blood 106 98 - 107 mmol/L [facility] Gluc Whole Bld 135 65 - 199 mg/dL [facility] Comment:Diabetes: >=200 mg/d L plus symptoms. Lactate WB 2.2 0.5 - 2.2 mmol/L [facility] FIO2 Art 100 % [facility] PF Ratio Art 356 [facility] Blood specimen (specimen) 09/21/2016 12:20 PM EST 09/21/2016 12:20 PM EST Alirio Esparza MD POINT OF CARE TEST ORDERABLES [facility] [place] [address] * (ABNORMAL) BLOOD GAS 2 ARTERIAL (09/21/2016 10:54 AM EST) pH, Arterial 7.43 7.35 - 7.45 [facility] PCO2, Arterial 40 35 - 45 mmHg [facility] PO2, Arterial 297(H) 85 - 104 mmHg [facility] Bicarbonate, Arterial 26.0 20.0 - 26.0 mmol/L [facility] Base Excess, Arterial 1.6 -3.0 - 3.0 mmol/L [facility] Hgb Blood Gas 8.6(L) 11.7 - 15.5 gm/dL [facility] Oxyhemoglobin, Arterial 98.6(H) 94.0 - 97.0 % [facility] Carboxyhemoglob in, Arterial 0.5 % [facility] Comment: Nonsmokers: 0.5-1.5% COHB Smokers: Variable, but usually less than 10% Toxic: 20-30% COHB Lethal: Greater than 60% COHB Methemoglobin, Arterial 0.3 <=1.5 % [facility] Na Whole Blood 134(L) 135 - 145 mmol/L [facility] K Whole Blood 4.5 3.5 - 5.0 mmol/L [facility] Comment: Please note: Patients with WBC >100,000 may have falsely elevated Potassium levels. Contact the Clinical Chemistry Laboratory if there are any questions. ICa Whole Blood 1.16 1.15 - 1.33 mmol/L [facility] Comment: Note: ??Total bilirubin higher than 20 mg/dL may lead to falsely low ionized calcium. CL Whole Blood 104 98 - 107 mmol/L [facility] Gluc Whole Bld 240(H) 65 - 199 mg/dL [facility] Comment:Diabetes: >=200 mg/d L plus symptoms. Lactate WB 2.4(H) 0.5 - 2.2 mmol/L [facility] FIO2 Art 95 % [facility] Flow Art 0.7 LPM [facility] PF Ratio Art 313 [facility] Temp Art 36.7 Celsius [facility] Blood specimen (specimen) 09/21/2016 10:54 AM EST 09/21/2016 10:54 AM EST Alirio Esparza MD POINT OF CARE TEST ORDERABLES [facility] [place] [address] * Thrombin time (09/21/2016 10:50 AM EST) Thrombin Time 19 15 - 20 sec [facility] Comment: A prolongation in the [...] ORDERABLE S Performing Organization Address [facility] Co de Phone Number [facility] [place] [address] * Fibrinogen (09/21/2016 10:50 AM EST) Fibrinogen 228 180 - 510 mg/dL [facility] Comment: Called by: JONNATHAN, Read back by: MICHELLE ALEJANDRE_, Date/Time:09/21/16 11:11. A fibrinogen level >100 mg/dL is adequate for hemostasis in most patients without underlying bleeding disorders. Blood specimen (specimen) 09/21/2016 10:50 AM EST 09/21/2016 10:56 AM EST Narrative Resulting Agency Comment Spec In Lab Luis Enrique Quarles MD HEMATOLOGY ORDERABLE S [facility] [place] [address] * APTT (09/21/2016 10:50 AM EST) Partial Thromboplastin Time 32 25 - 35 sec [facility] Comment: The recommended therapeutic range for full dose, unfractionated heparin at [facility] is 80 ? 114 [...] ORDERABLE S Performing Organization Address [facility] de Phone Number [facility] [place] [address] * (ABNORMAL) Prothrombin Time (09/21/2016 10:50 AM EST) Prothrombin Time 18.7(H) 12.0 - 15.0 sec [facility] Comment: An INR <2.0 indicates [...] International Normalization Ratio 1.5(H) 0.9 - 1.1 [facility] Blood specimen (specimen) 09/21/2016 10:50 AM EST 09/21/2016 10:56 AM EST Narrative Resulting Agency Comment Spec In Lab Luis Enrique Quarles MD HEMATOLOGY ORDERABLE S Performing Organization Address [facility] de Phone Number [facility] [place] [address] * (ABNORMAL) Hemogram (09/21/2016 10:50 AM EST) White Blood Cell 14.7(H) 4.0 - 9.5 x10(3)/mc L [facility] Red Blood Cell 2.40(L) 4.00 - 5.21 x10(6)/mc L [facility] Hemoglobin 7.9(L) 11.7 - 15.5 gm/dL [facility] Hematocrit 23.2(L) 35.7 - 45.8 % [facility] Comment: This result has been called to MICHELLE GRIGSBY by ASHU MORENO on 09 21 2016 at 1102, and has been read back. Mean Cell Volume 96.7(H) 82.6 - 94.4 fL [facility] Mean Cell Hemoglobin 32.9(H) 27.1 - 32.0 pg [facility] Mean Cell Hemoglobin Concentration 34.1 31.7 - 35.0 gm/dL [facility] Platelet 117(L) 145 - 357 x10(3)/mc L [facility] RDW Standard Deviation 42.6 37.0 - 46.0 fL [facility] RDW coefficient of variation 12.1 11.5 - 14.1 % [facility] Mean Platelet Volume 9.2 7.6 - 12.9 fL [facility] NRBC% auto 0.1 % [facility] NRBC Absolute 0.020(H) 0.000 - 0.000 x10(3)/mc L [facility] Blood specimen (specimen) 09/21/2016 10:50 AM EST 09/21/2016 10:56 AM EST Narrative Resulting Agency Comment Spec In Lab Luis Enrique Quarles MD HEMATOLOGY ORDERABLE S Performing Organization Address City/[facility] Co de Phone Number [facility] [place] [address] * Prepare Platelets, Apheresis (09/21/2016 10:30 AM EST) Pathologist [facility] Dispensed? Yes [facility] Blood specimen (specimen) 09/21/2016 10:30 AM EST 09/21/2016 10:28 AM EST Alirio Esparza MD BLOOD BANK PRODUCT ORDERABLES Performing Organization Address City/[facility]/ZIP Co de Phone Number [facility] [place] [address] * (ABNORMAL) BLOOD GAS 2 ARTERIAL (09/21/2016 10:05 AM EST) Pathologist [facility] pH, Arterial 7.33(L) 7.35 - 7.45 [facility] PCO2, Arterial 54(Critic al) 35 - 45 mmHg [facility] Comment:Noted by optical instrument inspector. PO2, Arterial 218(H) 85 - 104 mmHg [facility] Bicarbonate, Arterial 27.9(H) 20.0 - 26.0 mmol/L [facility] Base Excess, Arterial 2.0 -3.0 - 3.0 mmol/L [facility] Hgb Blood Gas 8.6(L) 11.7 - 15.5 gm/dL [facility] Oxyhemoglobin, Arterial 98.4(H) 94.0 - 97.0 % [facility] Carboxyhemoglo bin, Arterial 0.5 % [facility] Comment: Nonsmokers: 0.5-1.5% COHB Smokers: Variable, but usually less than 10% Toxic: 20-30% COHB Lethal: Greater than 60% COHB Methemoglobin, Arterial 0.3 <=1.5 % [facility] Na Whole Blood 129(L) 135 - 145 mmol/L [facility] K Whole Blood 6.2(Criti gabrielle) 3.5 - 5.0 mmol/L [facility] Comment: Noted by optical instrument inspector. Please note: Patients with WBC >100,000 may have falsely elevated Potassium levels. Contact the Clinical Chemistry Laboratory if there are any questions. ICa Whole Blood 0.95(L) 1.15 - 1.33 mmol/L [facility] Comment: Note: ??Total bilirubin higher than 20 mg/dL may lead to falsely low ionized calcium. CL Whole Blood 100 98 - 107 mmol/L [facility] Gluc Whole Bld 289(H) 65 - 199 mg/dL [facility] Comment:Diabetes: >=200 mg/d L plus symptoms. Lactate WB 2.2 0.5 - 2.2 mmol/L [facility] Temp Art 37.0 Celsius [facility] Blood specimen (specimen) 09/21/2016 10:05 AM EST 09/21/2016 10:05 AM EST Alirio Esparza MD POINT OF CARE TEST ORDERABLES [facility] [place] [address] * (ABNORMAL) BLOOD GAS 2 ARTERIAL (09/21/2016 9:44 AM EST) pH, Arterial 7.22(Criti gabrielle) 7.35 - 7.45 [facility] Comment:Noted by optical instrument inspector. PCO2, Arterial 70(Critica l) 35 - 45 mmHg [facility] Comment:Noted by optical instrument inspector. PO2, Arterial 224(H) 85 - 104 mmHg [facility] Bicarbonate, Arterial 27.8(H) 20.0 - 26.0 mmol/L [facility] Base Excess, Arterial 0.0 -3.0 - 3.0 mmol/L [facility] Hgb Blood Gas 8.7(L) 11.7 - 15.5 gm/dL [facility] Oxyhemoglobin, Arterial 98.5(H) 94.0 - 97.0 % [facility] Carboxyhemoglob in, Arterial 0.6 % [facility] Comment: Nonsmokers: 0.5-1.5% COHB Smokers: Variable, but usually less than 10% Toxic: 20-30% COHB Lethal: Greater than 60% COHB Methemoglobin, Arterial 0.3 <=1.5 % [facility] Na Whole Blood 131(L) 135 - 145 mmol/L [facility] K Whole Blood 5.9(H) 3.5 - 5.0 mmol/L [facility] Comment: Please note: Patients with WBC >100,000 may have falsely elevated Potassium levels. Contact the Clinical Chemistry Laboratory if there are any questions. ICa Whole Blood 1.00(L) 1.15 - 1.33 mmol/L [facility] Comment: Note: ??Total bilirubin higher than 20 mg/dL may lead to falsely low ionized calcium. CL Whole Blood 101 98 - 107 mmol/L [facility] Gluc Whole Bld 227(H) 65 - 199 mg/dL [facility] Comment:Diabetes: >=200 mg/d L plus symptoms. Lactate WB 2.1 0.5 - 2.2 mmol/L [facility] Blood specimen (specimen) 09/21/2016 9:44 AM EST 09/21/2016 9:44 AM EST Alirio Esparza MD POINT OF CARE TEST ORDERABLES Performing Organization Address [facility] de Phone Number [facility] [place] [address] * (ABNORMAL) Hemoglobin (09/21/2016 9:42 AM EST) Hemoglobin 7.2(L) 11.7 - 15.5 gm/dL [facility] Blood specimen (specimen) 09/21/2016 9:42 AM EST 09/21/2016 9:51 AM EST Narrative Resulting Agency Comment Spec In Lab Alirio Esparza MD HEMATOLOGY ORDERABL ES Performing Organization Address [facility] Phone Number [facility] [place] [address] * Platelet count (09/21/2016 9:42 AM EST) Platelet 159 145 - 357 x10(3)/mc L [facility] Immature Plt % 1.6 0.0 - 7.4 % [facility] Comment: Limitation of the Immature Platelet Fraction (IPF)-May be less reliable when the platelet count is less than 26e098/uL due to statistical imprecision. The IPF value [...] in a decreased state of production. References: [employer] The Clinical Value of the Immature Platelet Fraction (IPF) in Cell Recovery Document Number 10-1143 12/2010 [employer] The Role of the Immature Platelet Fraction (IPF) in the Differential Diagnosis of Thrombocytopenia, Document MKT-10-1209 V05/07/15 P012/13 Blood specimen (specimen) 09/21/2016 9:42 AM EST 09/21/2016 9:51 AM EST Narrative Resulting Agency Comment Spec In Lab Alirio Esparza MD HEMATOLOGY ORDERABL ES Performing Organization Address [facility] Co de Phone Number [facility] [place] [address] * (ABNORMAL) Hematocrit (09/21/2016 9:42 AM EST) Hematocrit 21.6(L) 35.7 - 45.8 % [facility] Comment: This result has been called to MICHELLE ALEJANDRE by Serjio Frazier on 09 21 2016 at 0957, and has been read back. Blood specimen (specimen) 09/21/2016 9:42 AM EST 09/21/2016 9:51 AM EST Narrative Resulting Agency Comment Spec In Lab Alirio Esparza MD HEMATOLOGY ORDERABL ES Performing Organization Address [facility] Co de Phone Number [facility] [place] [address] * Fibrinogen (09/21/2016 9:42 AM EST) Fibrinogen 219 180 - 510 mg/dL [facility] Comment: Called by: JONNATHAN, Read back by: MICHELLE ALEJANDRE_, Date/Time:09/21/16 10:03_. A fibrinogen level >100 mg/dL is adequate for hemostasis in most patients without underlying bleeding disorders. Blood specimen (specimen) 09/21/2016 9:42 AM EST 09/21/2016 9:51 AM EST Narrative Resulting Agency Comment Spec In Lab Alirio Esparza MD HEMATOLOGY ORDERABL ES [facility] [place] [address] * (ABNORMAL) BLOOD GAS 2 ARTERIAL (09/21/2016 9:10 AM EST) pH, Arterial 7.36 7.35 - 7.45 [facility] PCO2, Arterial 48(H) 35 - 45 mmHg [facility] PO2, Arterial 295(H) 85 - 104 mmHg [facility] Bicarbonate, Arterial 26.0 20.0 - 26.0 mmol/L [facility] Base Excess, Arterial 0.5 -3.0 - 3.0 mmol/L [facility] Hgb Blood Gas 8.0(L) 11.7 - 15.5 gm/dL [facility] Oxyhemoglobin, Arterial 98.3(H) 94.0 - 97.0 % [facility] Carboxyhemoglob in, Arterial 1.0 % [facility] Comment: Nonsmokers: 0.5-1.5% COHB Smokers: Variable, but usually less than 10% Toxic: 20-30% COHB Lethal: Greater than 60% COHB Methemoglobin, Arterial 0.3 <=1.5 % [facility] Na Whole Blood 135 135 - 145 mmol/L [facility] K Whole Blood 5.4(H) 3.5 - 5.0 mmol/L [facility] Comment: Please note: Patients with WBC >100,000 may have falsely elevated Potassium levels. Contact the Clinical Chemistry Laboratory if there are any questions. ICa Whole Blood 0.93(L) 1.15 - 1.33 mmol/L [facility] Comment: Note: ??Total bilirubin higher than 20 mg/dL may lead to falsely low ionized calcium. CL Whole Blood 102 98 - 107 mmol/L [facility] Gluc Whole Bld 195 65 - 199 mg/dL [facility] Comment:Diabetes: >=200 mg/d L plus symptoms. Lactate WB 1.8 0.5 - 2.2 mmol/L [facility] Temp Art 37.0 Celsius [facility] Blood specimen (specimen) 09/21/2016 9:10 AM EST 09/21/2016 9:10 AM EST Alirio Esparza MD POINT OF CARE TEST ORDERABLES [facility] [place] [address] * Surgical Pathology Report (09/21/2016 9:09 AM EST) Final Diagnosis [id number] ?Location: 3T The signing pathologist has (i) [...] ?. (R1) ??ADELITA 09/24/2016 9:32 AM EST [facility] AORTIC STRUCTURE / Unknown 09/21/2016 9:09 AM EST 09/21/2016 9:09 AM EST Alirio Esparza MD PATHOLOGY/CYTOLOGY ORDERABLES Performing Organization Address City/[facility]/[place] [address] * Specimen to Pathology (surgical or derm) (09/21/2016 9:09 AM EST) AP Specimen 09/21/2016 9:09 AM EST 09/21/2016 9:09 AM EST Narrative [facility] - 09/21/2016 9:09 AM EST Specimen requisition ordered. ??Separate Pathology report to follow Alirio Esparza MD PATHOLOGY/CYTOLOGY ORDERABLES Performing Organization Address [facility] [place] [address] * (ABNORMAL) BLOOD GAS 2 ARTERIAL (09/21/2016 8:50 AM EST) pH, Arterial 7.41 7.35 - 7.45 [facility] PCO2, Arterial 33(L) 35 - 45 mmHg [facility] PO2, Arterial 348(H) 85 - 104 mmHg [facility] Bicarbonate, Arterial 20.6 20.0 - 26.0 mmol/L [facility] Base Excess, Arterial -4.1(L) -3.0 - 3.0 mmol/L [facility] Hgb Blood Gas 9.5(L) 11.7 - 15.5 gm/dL [facility] Oxyhemoglobin, Arterial 98.8(H) 94.0 - 97.0 % [facility] Carboxyhemoglob in, Arterial 0.3 % [facility] Comment: Nonsmokers: 0.5-1.5% COHB Smokers: Variable, but usually less than 10% Toxic: 20-30% COHB Lethal: Greater than 60% COHB Methemoglobin, Arterial 0.3 <=1.5 % [facility] Na Whole Blood 137 135 - 145 mmol/L [facility] K Whole Blood 4.0 3.5 - 5.0 mmol/L [facility] Comment: Please note: Patients with WBC >100,000 may have falsely elevated Potassium levels. Contact the Clinical Chemistry Laboratory if there are any questions. ICa Whole Blood 1.04(L) 1.15 - 1.33 mmol/L [facility] Comment: Note: ??Total bilirubin higher than 20 mg/dL may lead to falsely low ionized calcium. CL Whole Blood 105 98 - 107 mmol/L [facility] Gluc Whole Bld 93 65 - 199 mg/dL [facility] Comment:Diabetes: >=200 mg/d L plus symptoms. Lactate WB 1.0 0.5 - 2.2 mmol/L [facility] Blood specimen (specimen) 09/21/2016 8:50 AM EST 09/21/2016 8:50 AM EST Alirio Esparza MD POINT OF CARE TEST ORDERABLES Performing Organization Address City/State/[facility] Co de Phone Number [facility] [place] [address] * (ABNORMAL) BLOOD GAS 2 ARTERIAL (09/21/2016 8:18 AM EST) pH, Arterial 7.42 7.35 - 7.45 [facility] PCO2, Arterial 36 35 - 45 mmHg [facility] PO2, Arterial 283(H) 85 - 104 mmHg [facility] Bicarbonate, Arterial 22.8 20.0 - 26.0 mmol/L [facility] Base Excess, Arterial -2.0 -3.0 - 3.0 mmol/L [facility] Hgb Blood Gas 12.6 11.7 - 15.5 gm/dL [facility] Oxyhemoglobin, Arterial 99.0(H) 94.0 - 97.0 % [facility] Carboxyhemoglob in, Arterial 0.6 % [facility] Comment: Nonsmokers: 0.5-1.5% COHB Smokers: Variable, but usually less than 10% Toxic: 20-30% COHB Lethal: Greater than 60% COHB Methemoglobin, Arterial 0.0 <=1.5 % [facility] Na Whole Blood 144 135 - 145 mmol/L [facility] K Whole Blood 4.0 3.5 - 5.0 mmol/L [facility] Comment: Please note: Patients with WBC >100,000 may have falsely elevated Potassium levels. Contact the Clinical Chemistry Laboratory if there are any questions. ICa Whole Blood 1.22 1.15 - 1.33 mmol/L [facility] Comment: Note: ??Total bilirubin higher than 20 mg/dL may lead to falsely low ionized calcium. CL Whole Blood 106 98 - 107 mmol/L [facility] Gluc Whole Bld 102 65 - 199 mg/dL [facility] Comment:Diabetes: >=200 mg/d L plus symptoms. Lactate WB 1.2 0.5 - 2.2 mmol/L [facility] FIO2 Art 95 % [facility] Flow Art 1.1 LPM [facility] PF Ratio Art 298 [facility] Temp Art 35.6 Celsius [facility] Blood specimen (specimen) 09/21/2016 8:18 AM EST 09/21/2016 8:18 AM EST Alirio Esparza MD POINT OF CARE TEST ORDERABLES [facility] [place] [address] * Prepare RBC (09/21/2016 7:05 AM EST) Dispensed? Yes [facility] Blood specimen (specimen) 09/21/2016 7:05 AM EST 09/21/2016 7:02 AM EST Alirio Esparza MD BLOOD BANK PRODUCT ORDERABLES [facility] [place] [address] * POCT Glucose (09/21/2016 6:42 AM EST) Glucose, POC 104 65 - 199 mg/dL [facility] Comment: Supplemental ranges: <140 mg/dL before meals <180 mg/dL all other times of the day Blood specimen (specimen) 09/21/2016 6:42 AM EST 09/21/2016 6:42 AM EST Alirio Esparza MD POINT OF CARE TEST ORDERABLES Performing Organization Address [facility] Co de Phone Number [facility] [place] [address] documented in this encounter Visit Diagnoses Diagnosis [...] dose on Wed09/21/16 at 1230, Until Discontinued, [place] teeth, Routine Given 09/25/2016 9:40 AM EST [...] if phenyleprine and/or vasopressin ineffective.Call pager # [phone] if initiated., Routine Rate/Dose Change 09/21/2016 2:27 [...] shift supervisor for additional fluid orders: pager #[phone]. Rate/Dose Verify 09/22/2016 10:00 AM EST 10 [...] Marcie Frazier RN)1302 (Given - Provider: Federico Appel RN)1708 (Given - Provider: Federico Apple RN) [...] at 0600)1600 (Due - Provider: Kendall Martínez [facility]) aspirin chewable tablet 81 mg(Linked Group 1) [...] dose on Wed09/21/16 at 1230, Until Discontinued, [place] teeth, Routine 0900 (Not Given - Provider: [...] Provider: Federico Apple RN)1708 (Given - Provider: eFderico Apple RN) 08 (Given - Provider: Marek [...] Routine documented in this encounter Care Teams Area Relief Pilot Relationship Specialty Start Date End Date Deborah Quiroga APRN PCP - General Family Medicine 03/24/16 02/04/23 documented as of this encounter
--- OUTSIDE RECORDS SUMMARY | 2024-05-02 15:13 | XMS_ITS | Encounter Summary ---
Author Organization [facility] Address [facility] [place] [address] Care Team Providers Care Pack Operator Name Role Phone Deborah Quiroga ANURAG Primary Care Provider [phone] Encounter Details Date Type Department Care Team (Late Contact Info) Description 07/21/2017 Orders Only [place]ematology [place] [phone] Alexandrea Greenwood RN Other neutropenia Social History [...] [facility] Hematology Oncology [address] [place] [address] 05/12/2024 10:00 AM EDT Office Visit Hematology [place] [phone] Markel Borjas MD [facility] HEMATOLOGY [place] [address] 03/01/2025 4:15 PM EDT Office Visit Dermatology at [address] [address] Marek Bonilla MD [address] [facility] [address], [place] [address] documented as of this encounter Visit Diagnoses Diagnosis Other neutropenia documented in this encounter Care Teams Pack Operator Relationship Specialty Start Date End Date Deborah Quiroga APRN PCP - General Family Medicine 03/24/16 02/04/23 documented as of this encounter
--- OUTSIDE RECORDS SUMMARY | 2024-05-02 15:13 | XMS_ITS | Encounter Summary ---
[place] [address] Care Team Providers Care Patent Drafter Name Role Phone Ashley Quirogan Cornelius ANURAG Primary Care Provider [phone] Reason for Visit * Reason Comments Acrochordon Rosacea Encounter Details Date Type Department Care Team (Late st Contact Info) Description 12/05/2020 3:00 PM EDT Office Visit Dermatology at [address] [address] Marek Bonilla MD [address] [facility], [place] [address] Inflamed acrochordon Social History Tobacco Use Types [...] [facility] [place] [address] [place] [address] 05/12/2024 10:00 AM EDT Office Visit Hematology [place] [address] Markel Borjas MD [facility] [address] HEMATOLOGY [place] [address] 03/01/2025 4:15 PM EDT Office Visit Dermatology at [place] [address] [place] [address] Marek Bonilla MD [address] [facility], [place] [address] documented as of this encounter Visit Diagnoses Diagnosis Inflamed acrochordon Unspecified hypertrophic and atrophic condition of skin documented in this encounter Care Teams Patent Drafter Relationship Specialty Start Date End Date Deborah Quiroga APRN PCP - General Family Medicine 03/24/16 02/04/23 documented as of this encounter
--- OUTSIDE RECORDS SUMMARY | 2024-05-02 15:13 | XMS_ITS | Encounter Summary ---
Author Organization [facility] Address [facility] [place] [address] Care Team Providers Care Information And Referral Director Name Role Phone Deborah Quiroga APRN Primary Care Provider [phone] Encounter Details Date Type Department Care Team (Latest Contact Info) Description 10/14/2016 - 10/14/2016 11:59 PM EDT Hospital Encounter Radiology Library at [facility] [place] [phone] Alirio Esparza MD Pain Discharge Disposition: Home [...] Tablet Take 1 tablet by mouth daily. oxyCODONE (ROXICODONE) 5 mg [...] 9:00 AM EDT Laboratory Appointment Lab at [facility] Hematology Oncology [address] [place] [address] 05/12/2024 10:00 AM EDT Office Visit Hematology [place] [address] Markel Borjas MD [facility] [address] HEMATOLOGY [place] [address] 03/01/2025 4:15 PM EDT Office Visit Dermatology at [place] [address] [facility] [place] [address] Marek Bonilla MD [address] [facility], [place] [address] documented as of this encounter Procedures Procedure Name Priority Date/Time Associated Diagnosis Comments FILM LIBRARY STORAGE ONLY DX CHEST Routine 10/14/2016 12:00 AM EDT Pain documented in this encounter Results * Film Library- Storage Only DX Chest (10/14/2016 12:00 AM EDT) Narrative [facility] - 10/14/2016 5:16 PM EDT This exam is for storage only and is auto-finalizing. Alirio Esparza MD IMG FILM LIBRARY OR DERABLES Performing Organization Address City/State/[facility] Co de Phone Number [place], [place] documented in this encounter Visit Diagnoses Diagnosis Pain Generalized pain documented in this encounter Care Teams Information And Referral Director Relationship Specialty Start Date End Date Deborah Quiroga, LOADER OPERATOR PCP - General Family Medicine 03/24/16 02/04/23 documented as of this encounter
--- OUTSIDE RECORDS SUMMARY | 2024-05-02 15:13 | XMS_ITS | Encounter Summary ---
Author Organization [facility] Address [facility] [facility] [place] [address] Care Team Providers Care Home Health Care Social Worker Name Role Phone Deborah Quiroga APRN Primary Care Provider [phone] Reason for Visit * Consultation (Routine) - Closed Specialty Diagnoses / Procedures Referred By Contkrystle t Referred To Contact Rheumatology Diagnoses Positive FRANCISCO (antinuclear antibody) Arthralgia, unspecified joint Sandy Wu APRN [address] [place] [address] [facility] Rheumatology [address] [place] [address] Referral ID Status Reason Start Date Expiration Date V isits Requested Visits Authorized [id number] Closed Consult, Test & Treat PCP Updated and/or Approved 01/01/2022 01/01/2023 6 6 Encounter Details Date Type Department Care Team (Latest Contact Info) Description 01/20/2022 10:00 AM EDT Office Visit [place] [address] Raymond Loredo MD [facility] [place] [address] Rosacea; Raynaud's phenomenon without gangrene; [...] over radiocarpal or ulnocarpal joints. 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 SJC/TJC 0/0. Hips: Full motion, [...] can be done locally or here at [facility] that the current time is not particularly interested it seems Raymond Loredo MD documented in this encounter Plan of Treatment Upcoming Encounters Date Type Department Care Team (Late st Contact Info) Description 05/12/2024 9:00 AM EDT Laboratory Appointment Lab at [facility] Hematology Oncology [address] [place] [address] 05/12/2024 10:00 AM EDT Office Visit Hematology [place] [address] Markel Borjas MD [facility] [address] HEMATOLOGY [place] [address] 03/01/2025 4:15 PM EDT Office Visit Dermatology at [place] [address] [facility] [place] [address] Marek Bonilla MD [address] [facility], [place] [address] Scheduled Referrals Name Type Priority Associated Diagnoses [...] syndrome documented in this encounter Care Teams Home Health Care Social Worker Relationship Specialty Start Date End Date Junaid, Deborah E, ROLL THREADER OPERATOR PCP - General Family Medicine 03/24/16 02/04/23 documented as of this encounter
--- OUTSIDE RECORDS SUMMARY | 2024-05-02 15:13 | XMS_ITS | Encounter Summary ---
Author Organization [facility] Address [facility] [place] [address] Care Team Providers Care Dish Network Installer Name Role Phone Ashley Quirogan Cornelius ANURAG Primary Care Provider [phone] Encounter Details Date Type Department Care Team (Late st Contact Info) Description 03/04/2020 External Results Hematology [place] [phone] [employer] [place]la Social History Tobacco Use Types [...] 9:00 AM EDT Laboratory Appointment Lab at [facility] Hematology Oncology [address] [place] [address] 05/12/2024 10:00 AM EDT Office Visit Hematology [place] [phone] Markel Borjas MD [facility] DR [place] [address] 03/01/2025 4:15 PM EDT Office Visit Dermatology at [address] [phone] Marek Bonilla MD [address], [place] [address] documented as of this encounter Procedures Procedure [...] Provider HEMATOLOGY ORDERA BLES Performing Organization Address City/State/[facility] Co de Phone Number EXTERNAL LAB documented in this encounter Visit Diagnoses Not on filedocumented in this encounter Care Teams Dish Network Installer Relationship Specialty Start Date End Date Deborah Quiroga, SENIOR SOFTWARE ANALYST PCP - General Family Medicine 03/24/16 02/04/23 documented as of this encounter
--- OUTSIDE RECORDS SUMMARY | 2024-05-02 15:13 | XMS_ITS | Encounter Summary ---
Author Organization [facility] Address [facility] [place] [address] Care Team Providers Care Security Installation Technician Name Role Phone Deborah Quiroga APRN Primary Care Provider [phone] Encounter Details Date Type Department Care Team (Late st Contact Info) Description 12/04/2016 External Results Hematology [place] [phone] Teresa Dodson RN Social History Tobacco Use [...] 9:00 AM EDT Laboratory Appointment Lab at [facility] Hematology Oncology [address] [place] [address] 05/12/2024 10:00 AM EDT Office Visit Hematology [place] [phone] Markel Borjas MD [facility] HEMATOLOGY [place] [address] 03/01/2025 4:15 PM EDT Office Visit Dermatology at [address] [phone] Marek Bonilla MD [address], [place] [address] documented as of this encounter Procedures Procedure Name Priority Date/Time Associated Diagnosis Comments CBC (WITH DIFF) Routine 12/03/2016 11:35 AM EDT COMPREHENSIVE METABOLIC PANEL Routine 12/03/2016 11:35 AM EDT documented in this encounter Results * (ABNORMAL) Comprehensive metabolic panel (non-fasting) (12/03/2016 11:35 AM EDT) Glucose 85(Type Soldering Machine Tender al Lab) Blood Urea Nitrogen 11(Type Soldering Machine Tender al Lab) Creatinine 0.93(Exte rnal Lab) Sodium 140(Exter nal Lab) Potassium 4.2(Exter nal Lab) Chloride 104(Exter nal Lab) Calcium 10.0(Exte rnal Lab) Protein, Total 8.1(Exter nal Lab) Albumin 3.5(Exter nal Lab) Bilirubin, Total 0.25(Exte rnal Lab) Alkaline Phosphatase 96(Type Soldering Machine Tender al Lab) Aspartate Aminotransferase 18(Type Soldering Machine Tender al Lab) Alanine Aminotransferase 21(Type Soldering Machine Tender al Lab) Blood specimen (specimen) 12/03/2016 11:35 AM EDT Historical Provider CHEMISTRY ORDERAB LES * (ABNORMAL) CBC (with Diff) (12/03/2016 11:35 AM EDT) White Blood Cell 1.61(EXTER NAL/ABN) 4.4 - 10.8 Hemoglobin 13.0(Exter nal Lab) Hematocrit 39.8(Exter nal Lab) Platelet 248(Type Soldering Machine Tender al Lab) Neutrophil Absolute (ANC) - Automated 0.5(SCREENER AND BLENDER OPERATOR AL/ABN) Blood specimen (specimen) 12/03/2016 11:35 AM EDT Historical Provider HEMATOLOGY ORDERA BLES documented in this encounter Visit Diagnoses Not on filedocumented in this encounter Care Teams Security Installation Technician Relationship Specialty Start Date End Date Deborah Quiroga, ANURAG PCP - General Family Medicine 03/24/16 02/04/23 documented as of this encounter
--- OUTSIDE RECORDS SUMMARY | 2024-05-02 15:13 | XMS_ITS | Encounter Summary ---
Author Organization Counts Include [facility] Address [facility] Erika lópezsylvia [place] [address] Care Team Providers Care Hot Walker Name Role Phone Deborah Quiroga ANURAG Primary Care Provider [phone] Encounter Details Date Type Department Care Team (Late st Contact Info) Description 11/11/2020 Refill Dermatology at [address] [address] Taylor Malone, MULTIMEDIA DESIGNER Social History Tobacco Use Types Packs/Day Years [...] EDT Laboratory Appointment Lab at [facility] [place] [address] [place] [address] 05/12/2024 10:00 AM EDT Office Visit Hematology [place] [address] Markel Borjas MD [facility] HEMATOLOGY [place] [address] 03/01/2025 4:15 PM EDT Office Visit Dermatology at [address] [address] Marek Bonilla MD [address], [place] [address] documented as of this encounter Visit Diagnoses Not on filedocumented in this encounter Care Teams Hot Walker Relationship Specialty Start Date End Date Deborah Quiroga APRN PCP - General Family Medicine 03/24/16 02/04/23 documented as of this encounter
--- OUTSIDE RECORDS SUMMARY | 2024-05-02 15:13 | XMS_ITS | Encounter Summary ---
Author Organization [facility] Address [facility] Erika lópez[place]yl[place] [address] Care Team Providers Care Steam Crane Operator Name Role Phone Deborah Quiroga APRN Primary Care Provider [phone] Encounter Details Date Type Department Care Team (Late st Contact Info) Description 01/09/2022 Refill Dermatology at [address] [address] Lupe Connor RN Social History [...] 9:00 AM EDT Laboratory Appointment Lab at [facility] [place] [place] Hematology Oncology [address] [place] [address] 05/12/2024 10:00 AM EDT Office Visit Hematology [place] [address] Markel Borjas MD [facility] [address] [place] [address] 03/01/2025 4:15 PM EDT Office Visit Dermatology at [address] [address] Marek Bonilla MD [address], [place] [address] documented as of this encounter Visit Diagnoses Not on filedocumented in this encounter Care Teams Steam Crane Operator Relationship Specialty Start Date End Date Deborah Quiroga APRN PCP - General Family Medicine 03/24/16 02/04/23 documented as of this encounter
--- OUTSIDE RECORDS SUMMARY | 2024-05-02 15:13 | XMS_ITS | Encounter Summary ---
Author Organization [facility] Address [facility] Erika lópez[place] [address] Care Team Providers Care Valve Steamer Name Role Phone Deborah Quiroga ANURAG Primary Care Provider [phone] Encounter Details Date Type Department Care Team (Late st Contact Info) Description 01/13/2021 Refill Dermatology at [address] [address] Taylor Malone, ADJUNCT SPANISH INSTRUCTOR Social History Tobacco Use Types Packs/Day Years [...] 9:00 AM EDT Laboratory Appointment Lab at [facility] [facility] [place] [address] [place] [address] 05/12/2024 10:00 AM EDT Office Visit Hematology [place] [address] Markel Borjas MD [facility] [place]AT[place] [address] 03/01/2025 4:15 PM EDT Office Visit Dermatology at [address] [address] Marek Bonilla MD [address], [place] [address] documented as of this encounter Visit Diagnoses Not on filedocumented in this encounter Care Teams Valve Steamer Relationship Specialty Start Date End Date Deborah Quiroga APRN PCP - General Family Medicine 03/24/16 02/04/23 documented as of this encounter
--- OUTSIDE RECORDS SUMMARY | 2024-05-02 15:14 | XMS_ITS | Encounter Summary ---
Author Organization [facility] [place] [address] Care Team Providers Care Activities Specialist Name Role Phone Ahsley Quirogazac Shields APRN Primary Care Provider [phone] Encounter Details Date Type Department Care Team (Late st Contact Info) Description 07/03/2016 External Results Hematology [place] [phone] Matthew Cervantes, DO [address] [place] [phone] Social History Tobacco Use Types Packs/Day Years [...] 9:00 AM EDT Laboratory Appointment Lab at [facility] [place]ematology Oncology [address] [place] [id number] 05/12/2024 10:00 AM EDT Office Visit Hematology [place] [phone] Markel Borjas MD [facility] [address] [place] [address] 03/01/2025 4:15 PM EDT Office Visit Dermatology at [place] [address] [place] [address] Marek Bonilla MD [address], [place] [address] documented as of this encounter Procedures Procedure Name Priority Date/Time Associated Diagnosis Comments BONE MARROW ASPIRATION PERFO RMED WITH BONE MARRROW BIOPSY Routine 06/28/2016 documented in this encounter Results * BONE MARROW ASPIRATION PREFORMED WITH BONE MARRROW BIOPSY (06/28/2016) Matthew Cervantes DO GENERAL SURGI DANIEL ORDERABLES documented in this encounter Visit Diagnoses Not on filedocumented in this encounter Care Teams Activities Specialist Relationship Specialty Start Date End Date Deborah Quiroga APRN PCP - General Family Medicine 03/24/16 02/04/23 documented as of this encounter
--- OUTSIDE RECORDS SUMMARY | 2024-05-02 15:14 | XMS_ITS | Encounter Summary ---
Author Organization [facility] Address [facility] [place] [address] Care Team Providers Care Insurance Consultant Name Role Phone Junaid Deborah Shields APRN Primary Care Provider [phone] Encounter Details Date Type Department Care Team (Latest Contact Info) Description 06/19/2016 - 06/19/2016 11:59 PM EST Hospital Encounter Radiology Library at [facility] [place] [phone] Nitesh Pina Jr., MD [facility] [place] [address] Pain Discharge Disposition: Home Social History Tobacco [...] tablet Take 81 mg by mouth daily. meTOPROLOL tartrate (LOPRESSOR) 25 mg Tablet Take 25 mg by mouth 2 times daily. 02/05/2023 chlorhexidine (HIBICLENS) 4 % LiquidIndications:Non rheumatic aortic valve stenosis Apply topically daily as needed. Shower from head to toe with Chlorhexidine the night before surgery . 120 mL 05/19/2016 09/25/2016 ramipril (ALTACE) 10 mg Capsule Take 10 mg by mouth daily. 09/25/2016 buPROPion (WELLBUTRIN SR) 100 mg Tablet Sustained [...] [facility] Hematology Oncology [address] [place] [address] 05/12/2024 10:00 AM EDT Office Visit [place] [address] Markel Borjas MD [facility] [address] [place] [address] 03/01/2025 4:15 PM EDT Office Visit Dermatology at [place] [address] [place] [address] Marek Bonilla MD [address] [facility] [address], [place] [address] documented as of this encounter Procedures Procedure Name Priority Date/Time Associated Diagnosis Comments FILM LIBRARY STORAGE ONLY CT CHEST ABDOMEN PELVIS Routine 06/19/2016 12:00 AM EST Pain documented in this encounter Results * Film Library- Storage Only CT Chest Abdomen Pelvis (06/19/2016 12:00 AM EST) Narrative [facility] - 06/20/2016 8:53 AM EST This exam is for storage only and is auto-finalizing. Nitesh Pina Jr., MD IMG FILM LIBRARY ORD ERABLES [place], [place] documented in this encounter Visit Diagnoses Diagnosis Pain Generalized pain documented in this encounter Care Teams Insurance Consultant Relationship Specialty Start Date End Date Deborah Quiroga, SHIP RIGGER APPRENTICE PCP - General Family Medicine 03/24/16 02/04/23 documented as of this encounter
--- OUTSIDE RECORDS SUMMARY | 2024-05-02 15:14 | XMS_ITS | Encounter Summary ---
Author Organization [facility] Address [facility] [place] [address] Care Team Providers Care Chauffeur Airport Limousine Name Role Phone Ashley Quirogan Cornelius ANURAG Primary Care Provider [phone] Encounter Details Date Type Department Care Team (Late st Contact Info) Description 07/31/2016 Orders Only Hematology [place] [address] Alexandrea [place] RN Neutropenia, unspecified type Social [...] 9:00 AM EDT Laboratory Appointment Lab at [facility] Hematology Oncology [address] [place] [address] 05/12/2024 10:00 AM EDT Office Visit Hematology [place] [address] Markel Borjas MD [facility] HEMATOLOGY [place] [address] 03/01/2025 4:15 PM EDT Office Visit Dermatology at [address] [address] Marek Bonilla MD [address], [place] [address] documented as of this encounter Results * [...] type documented in this encounter Care Teams Chauffeur Airport Limousine Relationship Specialty Start Date End Date Deborah Quiroga APRN PCP - General Family Medicine 03/24/16 02/04/23 documented as of this encounter
--- OUTSIDE RECORDS SUMMARY | 2024-05-02 15:14 | XMS_ITS | Encounter Summary ---
Author Organization [facility] Address [facility] [place] [address] Care Team Providers Care Cloth Checker Name Role Phone Deborah Quiroga ANURAG Primary Care Provider [phone] Encounter Details Date Type Department Care Team (Late st Contact Info) Description 06/16/2016 Orders Only Hematology [place] [address] Nitesh Pina Jr., MD [facility] DR [place] [address] Cyclical neutropenia Social History Tobacco Use Types [...] [facility] [place] [address] [place] [address] 05/12/2024 10:00 AM EDT Office Visit Hematology [place] [address] Markel Borjas MD [facility] [address] [place] [address] 03/01/2025 4:15 PM EDT Office Visit Dermatology at [place] [address] [place] [address] Marek Bonilla MD [address], QUOC [place] [address] documented as of this encounter Visit Diagnoses Diagnosis Cyclical neutropenia Cyclic neutropenia documented in this encounter Care Teams Cloth Checker Relationship Specialty Start Date End Date Deborah Quiroga APRN PCP - General Family Medicine 03/24/16 02/04/23 documented as of this encounter
--- OUTSIDE RECORDS SUMMARY | 2024-05-02 15:14 | XMS_ITS | Encounter Summary ---
[place] [address] Care Team Providers Care Heel Nailing Machine Operator Name Role Phone Ashley Quirogan Cornelius ANURAG Primary Care Provider [phone] Reason for Visit * Reason Onset Date Comments Medical Care Coordination 09/14/2016 Encounter Details Date Type Department Care Team (Late st Contact Info) Description 09/14/2016 Telephone Hematology [place] [address] Alexandrea [place] RN Medical Care Coordination Social [...] encounter Miscellaneous Notes * Telephone Encounter - Alexandrae [place] RN - 09/14/2016 9:10 AM EST Message received from chute boss: Injection/Infusion Referral Call placed to [facility] Infusion Room Spoke charis Bragg. Services to be provided for pt are: Miles 09/16/16 Mahsa confirmed they would provide services to pt and would contact with appointment time. Pt aware to expect the phone call ??orders faxed to [phone]). documented in this encounter Plan of Treatment Upcoming Encounters Date Type Department Care Team (Late st Contact Info) Description 05/12/2024 9:00 AM EDT Laboratory Appointment Lab at [facility] [place] [place] Hematology Oncology [address] [place] [address] 05/12/2024 10:00 AM EDT Office Visit Hematology [place] [address] Markel Borjas MD [facility] DR [place] [address] 03/01/2025 4:15 PM EDT Office Visit Dermatology at [place] [address] [place] [address] Marek Bonilla MD [address], [place] [address] documented as of this encounter Visit Diagnoses Not on filedocumented in this encounter Care Teams Heel Nailing Machine Operator Relationship Specialty Start Date End Date Deborah Quiroga APRN PCP - General Family Medicine 03/24/16 02/04/23 documented as of this encounter
--- OUTSIDE RECORDS SUMMARY | 2024-05-02 15:14 | XMS_ITS | Encounter Summary ---
[place] [address] Care Team Providers Care Trauma Coordinator Name Role Phone Deborah Quiroga ANURAG Primary Care Provider [phone] Reason for Visit * Reason Onset Date Comments Medical Care Coordination 07/31/2016 Encounter Details Date Type Department Care Team (Late st Contact Info) Description 07/31/2016 Telephone Hematology [place] [address] Alexandrea [place] RN Medical Care Coordination Social [...] 08/04/15 RN spoke with Aydee of the [facility] lab who states they can draw pt's cbc on 08/04/15, RN faxed lab req to [phone] at Aydee's request. RN instructed pt on Dr. Borjas's direction above. Pt verbalized understanding. documented in this encounter Plan of Treatment Upcoming Encounters Date Type Department Care Team (Late st Contact Info) Description 05/12/2024 9:00 AM EDT Laboratory Appointment Lab [place] [facility] [place] [address] [place] [address] 05/12/2024 10:00 AM EDT Office Visit Hematology [place] [address] Markel Borjas MD [facility] [address] [place] [address] 03/01/2025 4:15 PM EDT Office Visit Dermatology at [place] [address] [facility] [place] [address] Marek Bonilla MD [address], QUOC Katherine [place] [address] documented as of this encounter Visit Diagnoses Not on filedocumented in this encounter Care Teams Trauma Coordinator Relationship Specialty Start Date End Date Deborah Quiroga, CORPORATE CONTROLLER PCP - General Family Medicine 03/24/16 02/04/23 documented as of this encounter
--- OUTSIDE RECORDS SUMMARY | 2024-05-02 15:14 | XMS_ITS | Encounter Summary ---
Author Organization [facility] Address [facility] [place] [address] Care Team Providers Care Regional Administrative Assistant Name Role Phone Deborah Quiroga ANURAG Primary Care Provider [phone] Encounter Details Date Type Department Care Team (Late st Contact Info) Description 06/09/2016 Orders Only [place]ematology [place] [address] Nitesh Pina Jr., MD [facility] [address] HEMATOLOGY [place] [address] Cyclical neutropenia Social History Tobacco Use Types [...] [facility] Hematology Oncology [address] [place] [address] 05/12/2024 10:00 AM EDT Office Visit [place]ematology [place] [address] Markel Borjas MD [facility] [address] HEMATOLOGY [place] [address] 03/01/2025 4:15 PM EDT Office Visit Dermatology at [place] [address] [place] [address] Marek Bonilla MD [address], [place] [address] documented as of this encounter Results * Immunophenotyping Flow Cytometry (06/09/2016 4:53 PM EST) Immunophenotyping Flow See Comment [facility] Comment: When completed by the Pathologist, the Flow Cytometry Report ([id number]) will display under the Pathology Results section within eDH. Specimen of unknown material (specimen) 06/09/2016 4:53 PM EST 06/09/2016 5:00 PM EST Narrative Resulting Agency Comment Spec In Lab Nitesh Pina Jr., MD HEMATOLOGY ORDERABLE S Performing Organization Address City/State/[facility] Co de Phone Number [facility] [place] [place] [address] documented in this encounter Visit Diagnoses Diagnosis Cyclical neutropenia Cyclic neutropenia documented in this encounter Care Teams Regional Administrative Assistant Relationship Specialty Start Date End Date Deborah Quiroga, ANURAG PCP - General Family Medicine 03/24/16 02/04/23 documented as of this encounter
--- OUTSIDE RECORDS SUMMARY | 2024-05-02 15:14 | XMS_ITS | Encounter Summary ---
[place] [address] Care Team Providers Care Supervisor Refining Name Role Phone Deborah Quiroga ANURAG Primary Care Provider [phone] Reason for Visit * Reason Onset Date Comments Medical Care Coordination 07/17/2016 Encounter Details Date Type Department Care Team ([facility] Contact Info) Description 07/17/2016 Telephone Hematology [place] [address] Alexandrea [place] RN Medical Care Coordination Social [...] 07/17/2016 12:07 PM EST Message received from financial secretary: Injection/Infusion Referral Call placed to [phone]). Spoke w/ Pasquale. Services to be provided for pt are: Labs @ 10am ([facility]) & Neulasta @ 11am on 07/20/16, CBC only on 07/30/16 Pasquale confirmed they would provide services to pt and I left [facility] for pt to call for appt info. Pt demographics, office note, med list and orders faxed to [facility] documented in this encounter Plan of Treatment Upcoming Encounters Date Type Department Care Team (Late st Contact Info) Description 05/12/2024 9:00 AM EDT Laboratory Appointment [place] [facility] [place] [address] [place] [address] 05/12/2024 10:00 AM EDT Office Visit [place]ematology [place] [address] Markel Borjas MD [facility] [address] [place] [address] 03/01/2025 4:15 PM EDT Office Visit Dermatology at [place] [address] [place] [address] Marek Bonilla MD [address], [place] [address] documented as of this encounter Visit Diagnoses Not on filedocumented in this encounter Care Teams Supervisor Refining Relationship Specialty Start Date End Date Deborah Quiroga APRN PCP - General Family Medicine 03/24/16 02/04/23 documented as of this encounter
--- OUTSIDE RECORDS SUMMARY | 2024-05-02 15:14 | XMS_ITS | Encounter Summary ---
Author Organization [facility] [place] [address] Care Team Providers Care Plastic Surgery Specialist Name Role Phone Deborah Quiroga APRN Primary Care Provider Encounter Details Date Type Department Care Team (Latest Contact Info) Description 07/10/2016 2:54 PM EST - 07/10/2016 11:59 PM EST Hospital [place] [phone] Discharge Disposition: Home Social History Tobacco Use [...] EDT Laboratory Appointment Lab at [facility] Hematology Oncology [address] [place] [address] 05/12/2024 10:00 AM EDT Office Visit Hematology [place] [phone] Markel Borjas MD [facility] [address] [place] [address] 03/01/2025 4:15 PM EDT Office Visit Dermatology at [place] [address] [facility] [place] [address] Marek Bonilla MD [address] [facility] [place] [address] documented as of this encounter Procedures Procedure Name Priority Date/Time Associated Diagnosis Comments BONE MARROW FINAL REPORT Routine 07/10/2016 3:43 PM EST documented in this encounter Results * Bone Marrow Final Report (07/10/2016 3:43 PM EST) Final Diagnosis [id number] ?Location: [facility] The signing pathologist has (i) examined the relevant preparation(s) for the specimen(s) and (ii) rendered or confirmed the diagnosis(es). . ? Bone Marrow Final DIAGNOSIS BONE MARROW (PERIPHERAL SMEAR, ASPIRATE SMEAR, TOUCH PREP, CLOT SECTION, CORE BIOPSY); [OSR# [id number], COLLECTED 06/23/2016, 19 SLIDES]: ?? 1. 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 ? Polytypic plasma cell staining, high background Lambda ?Polytypic plasma cell staining, high background Block: ? B2 (Core biopsy 2) Fixative: ?? Formalin ANTIBODY: ?? RESULT/COMMENT CD3 ? Scattered small lymphocytes and lymphoid aggregates highlighted CD20 ?Few scattered small lymphocytes stain ( ?? <CD3 in aggregates) CD138 ? Scattered plasma cells represent 3-4% of the cellularity [place] ? Polytypic plasma cell staining, high background Lambda ?Polytypic plasma cell staining, high background Note: The immunoperoxidase stains reported above were developed and their performance characteristics determined by [facility]. ??They have not been cleared [...] CONSULTATION CASE A - 19 slides labeled [id number], collection date 06/23/2016. [id number] Report to: [facility] Surgical Pathology Department [facility], [address] [place] [address] ??[id number] 07/13/2016 11:38 AM EST [facility] Consult Case 07/10/2016 3:43 PM EST 07/10/2016 3:43 PM EST Nitesh Pina Jr., MD PATHOLOGY/CYTOLOGY O RDERABLES [facility] [place] [address] documented in this encounter Visit Diagnoses Not on filedocumented in this encounter Care Teams Plastic Surgery Specialist Relationship Specialty Start Date End Date Deborah Quiroga, BI SPECIALIST PCP - General Family Medicine 03/24/16 02/04/23 documented as of this encounter
--- OUTSIDE RECORDS SUMMARY | 2024-05-02 15:14 | XMS_ITS | Encounter Summary ---
[place] [address] Care Team Providers Care Supply Chain Business Analyst Name Role Phone Ashley Quirogazac Shields APRN Primary Care Provider [phone] Reason for Visit * Auth/Cert Specialty Diagnoses / Procedures Referred By Crispin t Referred To Contact Diagnoses Aortic stenosis Procedures PRO REPLACE AORT VALV, PROSTH VALV @REPLACE AORTIC VALVE, OPEN, W\CPB, W\PROSTHETIC VALVE (WRVU 41.32) Referral ID Status Reason Start Date Expiration Date Visits Re quested Visits Authorized [id number] 1 1 Encounter Details Date Type Department Care Team (Late st Contact Info) Description 09/21/2016 7:30 AM EST - 09/21/2016 12:04 PM EST [place] [address] Alirio Esparza MD @REPLACE AORTIC VALVE, OPEN, [...] in 1-2 weeks. Patient to follow-up with [facility] Feeder, Dr. Antelmo Burrell, in two weeks. Patient to follow-up with Cardiac Surgery, Dr. Alirio Esparza, to be scheduled for before 10/19/2016, with CXR, EKG, and Echo. Inpatient Provider Contact Information: [facility] Section of Cardiac Surgery [facility] [address] FAX [phone] Discharge Diagnoses (Hospital Problems) Primary Diagnoses: Secondary [...] [facility] MA[facility] ??? Pro aortoplas for supravalv sten N/A 09/21/2016 @AORTOPLASTY FOR SUPRAVALVULAR STENOSIS (WRVU 29.33) performed by Alirio Esparza MD at [facility] MAIN OR Prior To [...] Course: Purnima Thacker was admitted to [facility] on 09/21/2016 via the Same Day [...] Alirio Esparza and/or the Cardiac Surgery Physician Metal Tile Lather Team may be reached at . Antibiotic prophylaxis: You will need to take antibiotics prior to many invasive tests and treatments, such as dental cleaning, which should be done every 6 months. Your primary care physician or your dentist can prescribe this medication. Please refer to the card with the [place] [employer] Guidelines for more information. You have been provided with 3 copies of this card. Keep one for your self. Give one to your primary care physician and one to your dentist. Please refer to the [place] [employer] Guidelines for more information. Good [...] Dr. Alirio Jones. You may use a [place] or treadmill but avoid any pulling [...] should resume a low fat, low cholesterol, [place] [employer] Diet. Driving: No driving until [...] AM Markel Borjas MD [facility] [phone] Future Orders Complete By Expires Echocardiogram Transthoracic([place]) [HXW659 Custom] 10/18/2016 (Approximate) 09/18/2017 Process Instructions: If the Echocardiogram is to be PERFORMED in a DH location other than [place]--STOP and order [id number], Echocardiogram South/External. Scheduling Instructions: Questions: Is a Bubble Study requested?: No Does the patient have Congenital Heart Disease?: No Does patient require sedation?: None GA rationale: Should this service be billed to the research sponsor?: EKG 12 Lead [EKG1 Custom] 10/18/2016 (Approximate) 09/25/2017 Process Instructions: Scheduling Instructions: Questions: Which DH location will this be performed?: [place] Is a rhythm strip needed?: No If EKG Reason is Pre-op Evaluation, indicate diagnosis for surgery.: Should this service be billed to the research sponsor?: XR Chest PA & Lateral (Generic) [[id number] Custom] 10/18/2016 (Approximate) 09/25/2017 Process Instructions: Scheduling Instructions: Questions: Where will study be performed?: [facility]- Radiology Portable exam?: No Reason for exam and clinical history: s/p AVReplacement, patch annuloplasty 1 month f/u Other pertinent information: Stat read required?: Date of injury if applicable: Requested Time: Referral to Cardiac Rehab [FKO252 Custom] As directed Process Instructions: If no progress note charted, please enter Clinical details in comments. Scheduling Instructions: Questions: My question or request is: s/p AVR. Cardiac rehab at [facility] Referral to Home Health - at DISCHARGE [FJO1157 CPT(R)] As directed Process Instructions: Scheduling Instructions: Comments: DOCUMENTATION FOR VNA SERVICES (INCLUDING THOSE PATIENTS WITH MEDICARE COVERAGE REQUIRING HOME VNA SERVICES AND/OR HOSPICE SERVICES) PATIENT'S LOCATION: Purnimakary Gallego[address] [address] (home) No relevant phone numbers on file. Ship Worker's Name: self In discussion with the attending physician, it is certified that this patient is under their care and that they, or a Nurse Practitioner, or Physician Metal Tile Lather who is working directly with them, hada [...] for services as follows: HOME HEALTH AGENCY: [facility] PHONE: [phone] FAX: [phone] RN orders: Cardiopulmonary assessment, incisional assessment, assess [...] issues please call the Cardiac SurgeryOffice at [phone] FOR MEDICARE ONLY: In discussion with the [...] and contact information: [facility] VNA Patient location post discharge: home What services are requested: Registered Nurse Physical Therapy Occupational Therapy Start date: Responsible MD post discharge contact info: Arrangements for VNA/home care: As above. VN RN OR PCP TO PLEASE REMOVE CHEST TUBE SUTURES ON OR AFTER 09/30/16 Signed: Crispin Aranda PA-C 09/25/2016 [facility] Section of Cardiac Surgery [facility] [place] [address] FAX [phone] Date: 09/25/2016 CC: ANURAG Alford Caryn E, APRN [address] [place] [address] documented in this encounter Discharge Instructions * [...] Alirio Esparza and/or the Cardiac Surgery Physician Metal Tile Lather Team may be reached at . Antibiotic prophylaxis: You will need to take antibiotics prior to many invasive tests and treatments, such as dental cleaning, which should be done every 6 months. Your primary care physician or your dentist can prescribe this medication. Please refer to the card with the [place] [employer] Guidelines for more information. You have been provided with 3 copies of this card. Keep one for your self. Give one to your primary care physician and one to your dentist. Please refer to the [place] Heart [employer] Guidelines for more information. Good [...] Dr. Alirio Jones. You may use a [place] Track or treadmill but avoid any pulling [...] should resume a low fat, low cholesterol, [place] [employer] Diet. Driving: No driving until [...] mg by mouth 2 times daily. 02/05/2023 furosemide (LASIX) 20 mg Tablet Take 1 [...] 0.5 tablets by mouth daily. 10/03/2016 05/22/2023 buPROPion (WELLBUTRIN SR) 100 mg Tablet Sustained Release Take 100 mg by mouth every evening. 11/11/2020 buPROPion (WELLBUTRIN SR) 150 mg 12 hr tablet Take 150 mg by mouth 2 times daily. 12/13/2013 01/09/2022 documented as of this encounter Progress Notes * Crispin Aranda PA - 09/24/2016 4:04 PM EST Cardiac Surgery Progress Note: ID: [id number] S/p AVR, patch aortoplasty POD#2. PMH of [...] Gas) No results found for: PHART, PO2ART, HUL8VFA Assessment/Plan: TPW out this am. (+) BM. [...] Signed: Crispin Aranda PA-C 09/24/2016 Team pager: [phone] after 5pm [facility] Section of Cardiac Surgery * Leonor Henson S, STRAPPER OPERATOR - 09/23/2016 10:48 AM EST Cardiac Surgery Progress Note: ID: [id number] s/p AVR, patch aortoplasty POD#2. PMH of [...] Gas) No results found for: PHART, PO2ART, [id number] Assessment/Plan: s/p AVR, patch aortoplasty POD#2. PMH of Neutropenia, HLD, HTN, Depression, obesity, . Transferred from [facility] yesterday and doing well. Pathway. Will dc [...] on rounds. Signed: Leonor Henson APRN [facility] Section of Cardiac Surgery Date: 09/23/2016 * Nico Palacios PA - 09/22/2016 9:56 AM EST Cardiac Surgery Progress Note: ID: [id number] s/p AVR, patch aortoplasty POD#1. PMH of [...] NT, ND, soft. Ext: Moves all extremities. [place], well perfused. Incisions: C/D/I Tubes/Lines/Drains: PIV, richi, [...] Surgeon on rounds. Signed: EKATERINA KIM [facility] Section of Cardiac Surgery Date: 09/22/2016 [...] left pleural effusion. T/L/D Al ETT CVL [place] CT Pacing wires ASSESSMENT, MANAGEMENT, and DECISION [...] Outcome (s) achieved Date Met: 09/25/16 09/25/16 2522 Coping/Psychosocial Plan Of Care Reviewed With patient [...] health, home with outpatient services Lalitha Cohen [facility] Pager: [phone] Inpatient Physical Therapy Patient status, treatment interventions, and goals discussed with student. I am in agreement with all details and associated flowsheet rows as documented and was present for all aspects of the patient treatment session. Nery Jaramillo, CANDY Pager [phone] Problem: Acute Rehab Services Goal & Intervention Plan Goal: Bed Mobility Goal Stand Alone Therapy Goal Outcome: Ongoing (Interventions Implemented as Appropriate) 09/22/16 1611 09/25/16 0947 Bed Mobility Goal Bed Mobility Goal, Time to Achieve 4 days -- Bed Mobility Goal, Activity Type scoot/bridge;supine to sit/sit to supine -- Bed Mobility Goal, [place] Level independent -- Bed Mobility Goal, Additional [...] Achieve 4 days -- Gait Training Goal, [place] Level independent -- Gait Training Goal, Distance [...] assist, home with home health [facility]ith[facility] Cohen [facility] Pager: [phone] Inpatient Physical Therapy Patient status, treatment interventions, and goals discussed with student. I am in agreement with all details and associated flowsheet rows as documented and was present for all aspects of the patient treatment session. Nery Jaramillo, PHOTO LAB MANAGER Pager [phone] Problem: Acute Rehab Services Goal & Intervention Plan Goal: Bed Mobility Goal Stand Alone Therapy Goal Outcome: Ongoing (Interventions Implemented as Appropriate) 09/22/16161009/23/161411 Bed Mobility Goal Bed Mobility Goal, Time to Achieve 4 days -- Bed Mobility Goal, Activity Type scoot/bridge;supine to sit/sit to supine -- Bed Mobility Goal, [place] Level independent -- Bed Mobility Goal, Additional [...] Achieve 4 days -- Gait Training Goal, [place] Level independent -- Gait Training Goal, Distance [...] days -- Transfer Training Goal, Activity Type lxe-pp-xufdy/vdsll-eg-gzt;qoc-sa-phofo/jassd-ev-nsq -- Transfer Train Goal, [place] Level independent -- Transfer Training Goal, Additional [...] Another Service: (cardiac rehab) NICOLE HERNANDEZ, PT Pager:[phone] Inpatient Physical Therapy Problem: Acute Rehab Services Goal & Intervention Plan Goal: Bed Mobility Goal Stand Alone Therapy Goal Outcome: Ongoing (Interventions Implemented as Appropriate) 09/22/161610 Bed Mobility Goal Bed Mobility Goal, Time to Achieve 4 days Bed Mobility Goal, Activity Type scoot/bridge;supine to sit/sit to supine Bed Mobility Goal, [place] Level independent Bed Mobility Goal, Additional Goal able to abide sternal precautions during transfers Goal: Gait Training Goal Stand Alone Therapy Goal Outcome: Ongoing (Interventions Implemented as Appropriate) 09/22/161610 Gait Training Goal Gait Training Goal, Date Established 09/22/16 Gait Training Goal, Time to Achieve 4 days Gait Training Goal, [place] Level independent Gait Training Goal, Distance to Achieve ascend and descends 2 steps independently Goal: Goal Transfer Training Stand Alone Therapy Goal Outcome: Ongoing (Interventions Implemented as Appropriate) 09/22/161610 Goal Transfer Training Transfer Training Goal, Time to Achieve 4 days Transfer Training Goal, Activity Type myz-rm-ydxyi/uzqoj-ju-wjd;mbj-yd-pwuyz/igruf-ml-zaq Transfer Train Goal, [place] Level independent Transfer Training Goal, Additional Goal [...] of completing AD's at home, chooses her ykieck-nf-rbe, Martha Thacker (home) for her DPOAH, 2nd choice in friend, Nitesh Rad, [place], [place] Current Coping/Education/Information Needs: patient sitting up [...] close by, Rashad & Raymond, and her aeenef-ra-uoj Martha Thacker who she has chosen to be her DPOAH. Also has a friend Nitesh Leroy who lives in [place], [place], also her DPOAH choice. Behavioral Health History: none on file in eDH Substance Use/Abuse: none on file in e[facility] Other Pertinent/Service Specific Information: none Health/Prescription Coverage: Primary Insurance: [employer] Secondary Insurance: none Prescription Coverage: yes, per patient no issues Preferred Pharmacy: ?? Other: none Primary Care Provider: Deborah Quiroga, STRAPPER OPERATOR [phone] Patient/Caregiver Goals of Treatment: per medical team recommendations at discharge for CT surgery Potential Needs for Transition of Care: Rehab/SNF: TBD Home Health: TBD DME: no Dialysis: no Community Resources: non3 Transportation: ride home with a friend Other: none Anticipated Barriers to Discharge/Special Considerations: none anticipated at this time Plan: patient will need VNA services at discharge. The patient/guest service representative has been provided a list of Home Health Agencies/DME vendors which servetheir preferred geographic area. A letter describing our affiliations was reviewed with them and they were educated about their right to choose where referrals are placed. Patient requests referral to: [facility]. PHONE: [phone] FAX: [phone] Expected date of discharge: Fri/Sat? CM called VNA to confirm referral, talked with VALDO Bunn/intake who stated she was familiar w/patient & would monitor her progress through curaspan. Referral routed to the Cash Sales Audit Clerk for matching with agency/vendor and to provide any required information. A member of the Care Management team will continue to monitor progress, follow for continuity of care and assist with transition of care planning. Amanda Moreno RN Pager: [phone] * Op Note - Alirio Esparza MD - 09/21/2016 12:53 PM EST 09/23/2016 Purnima Thacker [id number] Preoperative Diagnosis: Symptomatic aortic stenosis Postoperative Diagnosis: Symptomatic aortic stenosis Procedure: Aortic valve replacement: Bovine Pericardial 25 mm Surgeon: Alirio Esparza M.D. Metal Tile Lather: Philip BALL Anesthesia: General endotracheal anesthesia Drains: [...] patient was transported to the [facility] on levo. All counts were correct. * [...] Operative Note Patient Name: Purnima Thacker : [id number] MR#: [id number] Case Date: 09/21/2016 Surgeon: Surgeon(s) and Role: * Alirio Esparza MD - Primary * Nico Palacios PA - Physician Metal Tile Lather Preoperative diagnosis: Postoperative diagnosis: Procedure(s) (LRB): @REPLACE [...] AM EDT Laboratory Appointment Lab at [facility] Hematology Oncology [address] [place] [address] 05/12/2024 10:00 AM EDT Office Visit [place] [address] [facility] [address] [place] [address] 03/01/2025 4:15 PM EDT Office Visit Dermatology at [address] [place] [address] Marek Bonilla MD [address], [place] [address] Scheduled Orders Name Type Priority Associated Diagnoses [...] IMPLANTABLE DEVICES SCAN 09/26/2016 12:00 AM EST MINER PLACER SCAN 09/26/2016 12:00 AM EST POTASSIUM Routine [...] SCAN EXT O RDR/RSLT * SCAN DOC: MINER PLACER (09/26/2016 12:00 AM EST) Anatomical Region Laterality [...] S [facility] [place] [address] * (ABNORMAL) Differential, Automated (09/24/2016 9:56 AM EST) Pathologist [facility] Neutrophil % 76.8 % [facility] Neutrophil Absolute 7.79(H) 1.70 - 6.10 x10(3)/mc L [facility] Lymph % 11.1 % [facility] Lymphocytes Abs 1.1 0.9 - 3.2 x10(3)/mc L [facility] Monocyte % 8.5 % [facility] Monocyte Abs 0.9 0.3 - 0.9 x10(3)/mc L [facility] Eos % 0.5 % [facility] [...] ES [facility] [place] [address] * (ABNORMAL) Hemogram (09/24/2016 9:56 AM EST) [...] ES [facility] [place] [address] * (ABNORMAL) Basic Metabolic Panel (non-fasting) (09/24/2016 [...] the following links into your internet browser. [email or web address] Blood specimen (specimen) 09/24/2016 9:56 AM EST 09/24/2016 10:04 AM EST Narrative Resulting Agency Comment Spec In Lab Alirio Esparza MD CHEMISTRY ORDERABLE S [facility] [place] [address] * XR Chest PA & Lateral (Generic) [...] S [facility] [place] [address] * POCT Glucose (09/22/2016 8:17 AM EST) Glucose, POC 131 65 - 199 mg/dL [facility] Comment: Supplemental ranges: <140 mg/dL before meals <180 mg/dL all other times of the day Blood specimen (specimen) 09/22/2016 8:17 AM EST 09/22/2016 8:17 AM EST Alirio Esparza MD POINT OF CARE TEST ORDERABLES [facility] [place] [address] * POCT Glucose (09/22/2016 4:01 AM EST) Glucose, POC 135 65 - 199 mg/dL [facility] Comment: Supplemental ranges: <140 mg/dL before meals <180 mg/dL all other times of the day Blood specimen (specimen) 09/22/2016 4:01 AM EST 09/22/2016 4:01 AM EST Alirio Esparza MD POINT OF CARE TEST ORDERABLES [facility] [place] [address] * Scan, Peripheral Blood (09/22/2016 4:00 AM EST) Plat estimate Normal [facility] RBC Morphology Abnormal [facility] Macrocyte 1-5 /HPF [facility] Plat, Giant Less than 1 /HPF [facility] Blood specimen (specimen) 09/22/2016 4:00 AM EST 09/22/2016 4:34 AM EST Narrative Resulting Agency Comment Spec In Lab Alirio Esparza MD HEMATOLOGY ORDERABL ES Performing Organization Address [facility]/ZIP Co de Phone Number [facility] [place] [address] * Electrolytes panel (09/22/2016 4:00 AM EST) Pathologist [facility] Sodium 145 135 - 145 mmol/L [facility] [...] CHEMISTRY ORDERABLE S Performing Organization Address City/[facility]/ZIP Co de Phone Number [facility] [place] [address] * (ABNORMAL) Differential, Automated (09/22/2016 4:00 AM EST) Neutrophil % 70.9 % [facility] Neutrophil Absolute 5.33 1.70 - 6.10 x10(3)/mc L [facility] Lymph % 9.1 % [facility] Lymphocytes Abs 0.7(L) 0.9 - 3.2 x10(3)/[facility] Monocyte % 18.0 % [facility] Monocyte Abs 1.4(H) 0.3 - 0.9 x10(3)/[facility] Eos % 0.0 % [facility] Eosinophils Abs 0.0 0.0 - 0.4 x10(3)/[facility] LABORAT[facility] Basophil % 0.1 % [facility] Baso Absolute 0.0 0.0 - 0.1 x10(3)/[facility] LABORAT[facility] Immature Gran % 1.90 % [facility] Comment: Immature granulocytes(IG's)percentage and absolute count will include metamyelocytes, myelocytes, and promyelocytes. Blood smears from CBCs yielding IG's will be scanned manually for concordance. If this scan disagrees with the automated IG or if promyelocytes are noted, a manual differential will be performed. Immature Gran Absolute 0.14(H) 0.00 - 0.04 x10(3)/[facility] LABOR[facility] Blood specimen (specimen) 09/22/2016 4:00 AM EST 09/22/2016 4:34 AM EST Narrative Resulting Agency Comment Spec In Lab Alirio Esparza MD HEMATOLOGY ORDERABL ES [facility] [place] [address] * (ABNORMAL) Hemogram (09/22/2016 4:00 AM EST) White Blood Cell 7.5 4.0 - 9.5 x10(3)/[facility] LABORAT[facility] Red Blood Cell 2.93(L) 4.00 - 5.21 x10(6)/[facility]AT[facility] Hemoglobin 9.2(L) 11.7 - 15.5 [...] MD HEMATOLOGY ORDERABL ES Performing Organization Address City/State/[facility] Co de Phone Number [facility] [place] [address] * (ABNORMAL) Cardiac Enzymes (09/22/2016 4:00 AM [...] consensus document of the Joint Society of Cardiology/[place] College of Cardiology Committee for the redefinition of myocardial infarction. ??Journal of the [place] College of Cardiology 2000; 36: 959-969] Creatine Kinase 338(H) 0 - 160 unit/L [facility] Blood specimen (specimen) 09/22/2016 4:00 AM EST 09/22/2016 4:34 AM EST Narrative Resulting Agency Comment Spec In Lab Alirio Esparza MD CHEMISTRY ORDERABLE S Performing Organization Address [facility] de Phone Number [facility] [place] [address] * (ABNORMAL) Glucose, fasting (09/22/2016 4:00 AM [...] of Diabetes Mellitus, Position Statement from the [place] Diabetes Association. ??Diabetes Care, Volume 33, Supplement 1, Aug 2009 Blood specimen (specimen) 09/22/2016 4:00 AM EST 09/22/2016 4:34 AM EST Narrative Resulting Agency Comment Spec In Lab Alirio Esparza MD CHEMISTRY ORDERABLE S Performing Organization Address [facility] Co de Phone Number [facility] [place] [address] * (ABNORMAL) Creatinine (09/22/2016 4:00 AM EST) [facility] Creatinine 0.69(L) 0.70 - 1.20 mg/dL [facility] Comment: Please note that the pediatric reference intervals supplied above were not validated at [facility]. Results from pediatric patients should be interpreted in conjunction to the patient's age, height and muscle mass. Est Glomerular Filtration Rate >60 >=60 [place] [...] the following links into your internet browser. [email or web address] Blood specimen (specimen) 09/22/2016 4:00 AM EST 09/22/2016 4:34 AM EST Narrative Resulting Agency Comment Spec In Lab Alirio Esparza MD CHEMISTRY ORDERABLE S Performing Organization Address City/[facility] Co de Phone Number [facility] [place] [address] * BUN (09/22/2016 4:00 AM EST) [facility] Blood Urea Nitrogen 10 8 - 18 mg/dL [facility] Blood specimen (specimen) 09/22/2016 4:00 AM EST 09/22/2016 4:34 AM EST Narrative Resulting Agency Comment Spec In Lab Alirio Esparza MD CHEMISTRY ORDERABLE S Performing Organization Address [facility]/ZIP Co de Phone Number [facility] [place] [address] * POCT Glucose (09/21/2016 9:59 PM EST) Glucose, POC 146 65 - 199 mg/dL [facility] Comment: Supplemental ranges: <140 mg/dL before meals <180 mg/dL all other times of the day Blood specimen (specimen) 09/21/2016 9:59 PM EST 09/21/2016 9:59 PM EST Alirio Esparza MD POINT OF CARE TEST ORDERABLES Performing Organization Address City/[facility]/ZIP Co de Phone Number [facility] [place] [address] * POCT Glucose (09/21/2016 7:26 PM EST) Glucose, POC 152 65 - 199 mg/dL [facility] Comment: Supplemental ranges: <140 mg/dL before meals <180 mg/dL all other times of the day Blood specimen (specimen) 09/21/2016 7:26 PM EST 09/21/2016 7:26 PM EST Alirio Esparza MD POINT OF CARE TEST ORDERABLES Performing Organization Address [facility] Co de Phone Number [facility] [place] [address] * POCT Glucose (09/21/2016 6:00 PM EST) Glucose, POC 146 65 - 199 mg/dL [facility] Comment: Supplemental ranges: <140 mg/dL before meals <180 mg/dL all other times of the day Blood specimen (specimen) 09/21/2016 6:00 PM EST 09/21/2016 6:00 PM EST Alirio Esparza MD POINT OF CARE TEST ORDERABLES Performing Organization Address City/[facility] Co de Phone Number [facility] [place] [address] * (ABNORMAL) BLOOD GAS 2 ARTERIAL (09/21/2016 4:42 PM EST) [facility] pH, Arterial 7.35(L) 7.35 - 7.45 [facility] PCO2, Arterial 48(H) 35 - 45 mmHg [facility] PO2, Arterial 108(H) 85 - 104 mmHg [facility] Bicarbonate, Arterial 26.0 20.0 - 26.0 mmol/L [facility] Base Excess, Arterial 0.5 -3.0 - 3.0 [...] [facility]ICAL [facility] FIO2 Art 40 % [facility] PF Ratio Art 270 [facility] Blood specimen (specimen) 09/21/2016 4:42 PM EST 09/21/2016 4:42 PM EST Alirio Esparza MD POINT OF CARE TEST ORDERABLES Performing Organization Address [facility] Co de Phone Number [facility] [place] [address] * POCT Glucose (09/21/2016 4:07 PM EST) Pathologist [facility] Glucose, POC 150 65 - 199 mg/dL [facility] Comment: Supplemental ranges: <140 mg/dL before meals <180 mg/dL all other times of the day Blood specimen (specimen) 09/21/2016 4:07 PM EST 09/21/2016 4:07 PM EST Alirio Esparza MD POINT OF CARE TEST ORDERABLES Performing Organization Address [facility] de Phone Number [facility] [place] [address] * (ABNORMAL) Hemoglobin (09/21/2016 4:05 PM EST) [facility] Hemoglobin 9.9(L) 11.7 - 15.5 gm/dL [facility] Blood specimen (specimen) 09/21/2016 4:05 PM EST 09/21/2016 4:20 PM EST Narrative Resulting Agency Comment Spec In Lab Alirio Esparza MD HEMATOLOGY ORDERABL ES Performing Organization Address [facility] Phone Number [facility] [place] [address] * Potassium (09/21/2016 4:05 PM EST) [facility] Potassium 4.6 3.5 - 5.0 mmol/L [facility] [...] MD CHEMISTRY ORDERABLE S Performing Organization Address [facility] Co de Phone Number [facility] [place] [address] * POCT Glucose (09/21/2016 2:52 PM EST) Glucose, POC 117 65 - 199 mg/dL [facility] Comment: Supplemental ranges: <140 mg/dL before meals <180 mg/dL all other times of the day Blood specimen (specimen) 09/21/2016 2:52 PM EST 09/21/2016 2:52 PM EST Alirio Esparza MD POINT OF CARE TEST ORDERABLES Performing Organization Address [facility] Co de Phone Number [facility] [place] [address] * POCT Glucose (09/21/2016 1:51 PM EST) Glucose, POC 108 65 - 199 mg/dL [facility] Comment: Supplemental ranges: <140 mg/dL before meals <180 mg/dL all other times of the day Blood specimen (specimen) 09/21/2016 1:51 PM EST 09/21/2016 1:51 PM EST Alirio Esparza MD POINT OF CARE TEST ORDERABLES Performing Organization Address [facility] Co de Phone Number [facility] [place] [address] * POCT Glucose (09/21/2016 12:54 PM EST) Glucose, POC 128 65 - 199 mg/dL [facility] Comment: Supplemental ranges: <140 mg/dL before meals <180 mg/dL all other times of the day Blood specimen (specimen) 09/21/2016 12:54 PM EST 09/21/2016 12:54 PM EST Alirio Esparza MD POINT OF CARE TEST ORDERABLES [facility] [place] [address] * EKG 12 Lead (09/21/2016 12:26 PM EST) Ventricular rate 87 BPM MUSE SYSTEM Atrial Rate 87 BPM MUSE SYSTEM P-R Interval 256 ms MUSE SYSTEM QRS Duration 90 ms MUSE SYSTEM Q-T Interval 406 ms MUSE SYSTEM QTC Calculated (Bezet) 488 ms MUSE SYSTEM Calculated P [place] 24 degrees MUSE SYSTEM Calculated R [place] 21 degrees MUSE SYSTEM Calculated T [place] -5 degrees MUSE SYSTEM INTERPRETATION Sinus rhythm with 1st degree A-V block Nonspecific T wave abnormality Prolonged QT Abnormal ECG When compared with ECG of 19-MAY-2016 11:43, CT interval has increased T wave inversion now [...] course of the esophagus and below the [id number]. There is a right IJ PA catheter [...] the course of theesophagus and below the renxk-ax-yzbh. There is a right IJ PA catheter [...] [facility] FIO2 Art 100 % [facility] PF Ratio Art 356 [facility] Blood specimen (specimen) 09/21/2016 12:20 PM EST 09/21/2016 12:20 PM EST Alirio Esparza MD POINT OF CARE TEST ORDERABLES Performing Organization Address [facility] Phone Number [facility] [place] [address] * (ABNORMAL) BLOOD GAS 2 ARTERIAL (09/21/2016 [...] [facility] FIO2 Art 95 % [facility] Flow Art 0.7 LPM [facility] PF Ratio Art 313 [facility] Temp Art 36.7 Celsius [facility] Blood specimen (specimen) 09/21/2016 10:54 AM EST 09/21/2016 10:54 AM EST Alirio Esparza MD POINT OF CARE TEST ORDERABLES Performing Organization Address City/State/[facility] Co de Phone Number [facility] [place] [address] * Thrombin time (09/21/2016 10:50 AM EST) [...] HEMATOLOGY ORDERABLE S Performing Organization Address [facility] de Phone Number [facility] [place] [address] * Fibrinogen (09/21/2016 10:50 AM EST) Fibrinogen [...] MD HEMATOLOGY ORDERABLE S Performing Organization Address [facility] de Phone Number [facility] [place] [address] * APTT (09/21/2016 10:50 AM EST) [facility] Partial Thromboplastin Time 32 25 - 35 [...] HEMATOLOGY ORDERABLE S Performing Organization Address [facility] de Phone Number [facility] [place] [address] * (ABNORMAL) Prothrombin Time (09/21/2016 10:50 AM EST) Pathologist [facility] Prothrombin Time 18.7(H) 12.0 - 15.0 sec [...] S [facility] [place] [address] * (ABNORMAL) Hemogram (09/21/2016 10:50 AM EST) [...] HEMATOLOGY ORDERABLE S Performing Organization Address [facility] de Phone Number [facility] [place] [address] * Prepare Platelets, Apheresis (09/21/2016 10:30 AM EST) Dispensed? Yes [facility] Blood specimen (specimen) 09/21/2016 10:30 AM EST 09/21/2016 10:28 AM EST Alirio Esparza MD BLOOD BANK PRODUCT ORDERABLES Performing Organization Address [facility] Phone Number [facility] [place] [address] * (ABNORMAL) BLOOD GAS 2 ARTERIAL (09/21/2016 10:05 AM EST) pH, Arterial 7.33(L) 7.35 - 7.45 [facility] PCO2, Arterial 54(Critic al) 35 - 45 mmHg [facility] Comment:Noted by instrument repair technician. PO2, Arterial 218(H) 85 [...] [facility] Comment: Noted by instrument repair technician. Please note: Patients with [...] [facility] Temp Art 37.0 Celsius [facility] Blood specimen (specimen) 09/21/2016 10:05 AM EST 09/21/2016 10:05 AM EST Alirio Esparza MD POINT OF CARE TEST ORDERABLES [facility] [place] [address] * (ABNORMAL) BLOOD GAS 2 ARTERIAL (09/21/2016 9:44 AM EST) pH, Arterial 7.22(Criti gabrielle) 7.35 - 7.45 [facility] Comment:Noted by instrument repair technician. PCO2, Arterial 70(Critica l) 35 - 45 mmHg [facility] Comment:Noted by instrument repair technician. PO2, Arterial 224(H) 85 [...] ORDERABLES [facility] [place] [address] * (ABNORMAL) Hemoglobin (09/21/2016 9:42 AM EST) Hemoglobin 7.2(L) 11.7 - 15.5 gm/dL [facility] Blood specimen (specimen) 09/21/2016 9:42 AM EST 09/21/2016 9:51 AM EST Narrative Resulting Agency Comment Spec In Lab Alirio Esparza MD HEMATOLOGY ORDERABL ES Performing Organization Address [facility]/ZIP Co de Phone Number [facility] [place] [address] * Platelet count (09/21/2016 9:42 AM EST) Platelet 159 145 - 357 x10(3)/mc L [facility] Immature Plt % 1.6 0.0 - 7.4 % [facility] Comment: Limitation of the Immature Platelet Fraction (IPF)-May be less reliable when the platelet count is less than 85o843/uL due to statistical imprecision. The IPF value [...] in a decreased state of production. References: [employer] The Clinical Value of the Immature Platelet Fraction (IPF) in Cell Recovery Document Number 10-1143 12/2010 [employer] The Role of the Immature Platelet Fraction (IPF) in the Differential Diagnosis of Thrombocytopenia, Document MKT-10-1209 V05/07/15 P0514 Blood specimen (specimen) 09/21/2016 9:42 AM EST 09/21/2016 9:51 AM EST Narrative Resulting Agency Comment Spec In Lab Alirio Esparza MD HEMATOLOGY ORDERABL ES Performing Organization Address [facility] Co de Phone Number [facility] [place] [address] * (ABNORMAL) Hematocrit (09/21/2016 9:42 AM EST) [...] ES Performing Organization Address [facility] de Phone Number [facility] [place] [address] * Fibrinogen (09/21/2016 9:42 AM EST) Fibrinogen [...] HEMATOLOGY ORDERABL ES Performing Organization Address [facility] Co de Phone Number [facility] [place] [address] * (ABNORMAL) BLOOD GAS 2 ARTERIAL (09/21/2016 [...] [facility] Temp Art 37.0 Celsius [facility] Blood specimen (specimen) 09/21/2016 9:10 AM EST 09/21/2016 9:10 AM EST Alirio Esparza MD POINT OF CARE TEST ORDERABLES [facility] [place] [address] * Surgical Pathology Report (09/21/2016 9:09 AM EST) Final Diagnosis [id number] ?Location: 3T The signing pathologist has (i) [...] AM EST Alirio Esparza MD PATHOLOGY/[place] [address] * Specimen to Pathology (surgical or derm) (09/21/2016 9:09 AM EST) AP Specimen 09/21/2016 9:09 AM EST 09/21/2016 9:09 AM EST Narrative [facility] - 09/21/2016 9:09 AM EST Specimen requisition ordered. ??Separate Pathology report to follow Alirio Esparza MD PATHOLOGY/CYTOLOGY ORDERABLES [facility] [place] [address] * (ABNORMAL) BLOOD GAS 2 ARTERIAL (09/21/2016 [...] ORDERABLES [facility] [place] [address] * (ABNORMAL) BLOOD GAS 2 ARTERIAL (09/21/2016 [...] [facility]ICAL [facility]ENTER [facility] FIO2 Art 95 % [facility] Flow Art 1.1 LPM [facility] PF Ratio Art 298 [facility] Temp Art 35.6 Celsius [facility] Blood specimen (specimen) 09/21/2016 8:18 AM EST 09/21/2016 8:18 AM EST Alirio Esparza MD POINT OF CARE TEST ORDERABLES [facility] [place] [address] * Prepare RBC (09/21/2016 7:05 AM EST) Dispensed? Yes [facility] Blood specimen (specimen) 09/21/2016 7:05 AM EST 09/21/2016 7:02 AM EST Alirio Esparza MD BLOOD BANK PRODUCT ORDERABLES Performing Organization Address City/[facility]/ZIP Co de Phone Number [facility] [place] [address] * POCT Glucose (09/21/2016 6:42 AM EST) Glucose, POC 104 65 - 199 mg/dL [facility] Comment: Supplemental ranges: <140 mg/dL before meals <180 mg/dL all other times of the day Blood specimen (specimen) 09/21/2016 6:42 AM EST 09/21/2016 6:42 AM EST Alirio Esparza MD POINT OF C[place] [address] documented in this encounter Visit Diagnoses Not [...] dose on Wed09/21/16 at 1230, Until Discontinued, Dixon teeth, Routine Given 09/25/2016 9:40 AM EST [...] Barnes, VALDO) 0942 (See Alternative - Provider: Joselny Caceres RN) atorvastatin (LIPITOR) tablet 10 mg [...] dose on Wed09/21/16 at 1230, Until Discontinued, Dixon teeth, Routine 0900 (Not Given - Provider: [...] Routine documented in this encounter Care Teams Supply Chain Business Analyst Relationship Specialty Start Date End Date Deborah Quiroga APRN PCP - General Family Medicine 03/24/16 02/04/23 documented as of this encounter
--- OUTSIDE RECORDS SUMMARY | 2024-05-02 15:14 | XMS_ITS | Encounter Summary ---
[place] [address] Care Team Providers Care Stonework Tracer Name Role Phone Ashley Quirogan Cornelius ANURAG Primary Care Provider [phone] Reason for Visit * Reason Onset Date Comments Medication Management 09/14/2016 Encounter Details Date Type Department Care Team (Late st Contact Info) Description 09/14/2016 Telephone H[place]ology [place] [phone] Alexandrea Greenwood, bit welder Management Social History Tobacco Use Types Packs/Day [...] 9:00 AM EDT Laboratory Appointment Lab at [facility] Hematology Oncology [address] [place] [address] 05/12/2024 10:00 AM EDT Office Visit [place]ology [place] [address] Markel Borjas MD [facility] [address] [place] [address] 03/01/2025 4:15 PM EDT Office Visit Dermatology at [place] [address] [place] [phone] Marek Bonilla MD [address], [place] [address] documented as of this encounter Visit Diagnoses Not on filedocumented in this encounter Care Teams Stonework Tracer Relationship Specialty Start Date End Date Deborah Quiroga APRN PCP - General Family Medicine 03/24/16 02/04/23 documented as of this encounter
--- OUTSIDE RECORDS SUMMARY | 2024-05-02 15:14 | XMS_ITS | Encounter Summary ---
Author Organization [facility] Address [facility] [place] [address] Care Team Providers Care Pipe Coverer And Insulator Name Role Phone Junaid Deborah Cornelius ANURAG Primary Care Provider [phone] Encounter Details Date Type Department Care Team (Late st Contact Info) Description 07/13/2016 External Results [place] [phone] Provider, Scanning Social History Tobacco Use Types [...] 9:00 AM EDT Laboratory Appointment Lab at [facility] [place]ematology Oncology [address] [place] [address] 05/12/2024 10:00 AM EDT Office Visit Hematology [place] [phone] Markel Borjas MD [facility] [address] [place] [address] 03/01/2025 4:15 PM EDT Office Visit Dermatology at [place] [address] [place] [phone] Marek Bonilla MD [address], [place] [address] documented as of this encounter Procedures Procedure Name Priority Date/Time Associated Diagnosis Comments SURGICAL PATHOLOGY SCAN Routine 07/13/2016 documented in this encounter Results * Scan Doc: Surgical Pathology (07/13/2016) Nitesh Pina Jr., MD MEDIA MGR SCAN EXT O RDR/RSLT documented in this encounter Visit Diagnoses Not on filedocumented in this encounter Care Teams Pipe Coverer And Insulator Relationship Specialty Start Date End Date Deborah Quiroga APRN PCP - General Family Medicine 03/24/16 02/04/23 documented as of this encounter
--- OUTSIDE RECORDS SUMMARY | 2024-05-02 15:14 | XMS_ITS | Encounter Summary ---
[place] [address] Care Team Providers Care Manager Of Internal Audit Name Role Phone Deborah Quiroga APRN Primary Care Provider [phone] Reason for Visit * Reason Onset Date Comments Prior Authorization 09/11/2016 Neulasta Encounter Details Date Type Department Care Team (Late st Contact Info) Description 09/11/2016 Telephone Hematology [place] [phone] Monica Wick Prior Authorization (Neulasta ) Social [...] AM EST Prior Auth for Neulasta (Approved) [facility] is a covered facility under the members plan. ID# [id number] Call placed to [phone] Rationale: Can you please start a PA for this pt to receive as outpatient at [facility] on 09/16/16? 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 ??Her last ANC was 0.56 (or 560) on 08/04/16. ??This will need to be approved through her medical as out patient. J code for neulasta. ?? [id number]. Spoke w/ Anna Marie Call Reference [id number] Copay: $ Deductible is not met, patient will have out of pocket costs until deductible is met. documented in this encounter Plan of Treatment Upcoming Encounters Date Type Department Care Team (Late st Contact Info) Description 05/12/2024 9:00 AM EDT Laboratory Appointment Lab at [facility] Hematology Oncology [address] [place] [address] 05/12/2024 10:00 AM EDT Office Visit Hematology [place] [address] Markel Borjas MD [facility] [address] [address] HEMATOLOGY [place] [address] 03/01/2025 4:15 PM EDT Office Visit Dermatology at [place] [address] [place] [address] Marek Bonilla MD [address], [place] [address] documented as of this encounter Visit Diagnoses Not on filedocumented in this encounter Care Teams Manager Of Internal Audit Relationship Specialty Start Date End Date Deborah Quiroga APRN PCP - General Family Medicine 03/24/16 02/04/23 documented as of this encounter
--- OUTSIDE RECORDS SUMMARY | 2024-05-02 15:14 | XMS_ITS | Encounter Summary ---
Author Organization [facility] Address [facility] [address] Care Team Providers Care Psychologists Name Role Phone Deborah Quiroga ANURAG Primary Care Provider [phone] Encounter Details Date Type Department Care Team (Late st Contact Info) Description 08/18/2016 Orders [place] [phone] Alirio Esparza MD Aortic valve stenosis, unspecified [...] 9:00 AM EDT Laboratory Appointment Lab at [facility] [place]ematology Oncology [address] [place] [address] 05/12/2024 10:00 AM EDT Office Visit Hematology [place] [address] Markel Borjas MD [facility] [address] [place] [address] 03/01/2025 4:15 PM EDT Office Visit Dermatology at [address] [address] Marek Bonilla MD [address], [place] [address] documented as of this encounter Results * Basic Metabolic Panel (non-fasting) (08/18/2016 4:50 PM EST) Glucose 82 65 - 199 mg/dL [facility] Comment:Diabetes: >=200 mg/d L plus symptoms Blood Urea Nitrogen 12 8 - 18 mg/dL [facility] Creatinine 0.87 0.70 - 1.20 mg/dL [facility] Comment: Please note that the pediatric reference intervals supplied above were not validated at [facility]. Results from pediatric patients should be interpreted in conjunction to the patient's age, height and muscle mass. Sodium 142 135 - 145 mmol/L [facility] [...] the following links into your internet browser. http://Education Everytime/DHnkdep http://Education Everytime/DHMCnkf Blood specimen (specimen) 08/18/2016 4:50 PM EST 08/18/2016 5:03 PM EST Narrative Resulting Agency Comment Spec In Lab Alirio Esparza MD CHEMISTRY ORDERABLE S [facility] [place] [address] documented in this encounter Visit Diagnoses Diagnosis Aortic valve stenosis, unspecified etiology documented in this encounter Care Teams Psychologists Relationship Specialty Start Date End Date Deborah Quiroga, ANURAG PCP - General Family Medicine 03/24/16 02/04/23 documented as of this encounter
--- OUTSIDE RECORDS SUMMARY | 2024-05-02 15:14 | XMS_ITS | Encounter Summary ---
Author [place] [address] Care Team Providers Care Irrigation System Installer Name Role Phone JunaidDeborah APRN Primary Care Provider [phone] Reason for Visit * Reason Onset Date Comments Labs Only 09/16/2016 Encounter Details Date Type Department Care Team (Late st Contact Info) Description 09/16/2016 Telephone Hematology [place] [phone] Alexandrea Greenwood, RN Labs Only Social History [...] 09/16/2016 11:09 AM EST Message received from pleater hand: Purnima is having her Neulasta done today at [facility]. ??She is wondering if we want to do a CBC prior to the injection? [phone] Borjas: CBC is fine RN spoke with Swapna at [facility] who confirms they can draw CBC on pt today, RN faxed CBC w/diff to [facility] lab at [phone] RN relayed to pt that CBC ordered had been faxed to [facility], pt will have CBC drawn today prior to neulasta injection. documented in this encounter Plan of Treatment Upcoming Encounters Date Type Department Care Team (Late st Contact Info) Description 05/12/2024 9:00 AM EDT Laboratory Appointment Lab at [facility] Hematology Oncology [address] [place] [address] 05/12/2024 10:00 AM EDT Office Visit Hematology [place] [address] Markel Borjas MD [facility] [address] [place] [address] 03/01/2025 4:15 PM EDT Office Visit Dermatology at [place] [address] [place] [phone] Marek Bonilla MD [address] [facility] [address] documented as of this encounter Results * [...] type documented in this encounter Care Teams Irrigation System Installer Relationship Specialty Start Date End Date Deborah Quiroga APRN PCP - General Family Medicine 03/24/16 02/04/23 documented as of this encounter
--- OUTSIDE RECORDS SUMMARY | 2024-05-02 15:14 | XMS_ITS | Encounter Summary ---
Author Organization [facility] Address [facility] [place] [address] Care Team Providers Care Passenger Solicitor Name Role Phone Deborah Quiroga ANRUAG Primary Care Provider [phone] Encounter Details Date Type Department Care Team (Late st Contact Info) Description 07/22/2016 External Results Hematology [place] [address] Alexandrea Greenwood RN Neutropenia, unspecified type Social [...] [facility] Hemat[facility] On[facility] [address] [place] [address] 05/12/2024 10:00 AM EDT Office Visit Hematology [place] [address] Markel Borjas MD [facility] HEMATOLOGY [place] [address] 03/01/2025 4:15 PM EDT Office Visit Dermatology at [address] [address] Marek Bonilla MD [address], [place] [address] documented as of this encounter Procedures Procedure Name Priority Date/Time Associated Diagnosis Comments COPPER, SERUM Routine 07/20/2016 10:30 AM EST Neutropenia, unspecified type CMV PCR, QUANTITATIVE Routine 07/20/2016 10:30 AM EST Neutropenia, unspecified type MONONUCLEOSIS SCREEN (APD/JEANNINE/[facility]) Routine 07/20/2016 10:30 AM EST Neutropenia, unspecified type CBC (WITH DIFF) Routine 07/20/2016 10:30 AM EST Neutropenia, unspecified type documented in this encounter Results * Copper, serum (07/20/2016 10:30 AM EST) Copper (NOVEMBER) 1.09 0.75 - 1.45 EXTERNAL LAB Blood specimen (specimen) 07/20/2016 10:30 AM EST Markel Borjas MD LAB SEND OUT ORDER JODIE Performing Organization Address City/[facility]/ZIP Co de Phone Number EXTERNAL LAB * CMV PCR, Quantitative (07/20/2016 10:30 AM EST) CMV PCR,Quantitati ve undetected EXTERNAL LAB Blood specimen (specimen) 07/20/2016 10:30 AM EST Markel Borjas MD MOLECULAR ORDERABL ES Performing Organization Address City/[facility]/ZIP Co de Phone Number EXTERNAL LAB * [...] type documented in this encounter Care Teams Passenger Solicitor Relationship Specialty Start Date End Date Deborah Quiroga, JANITOR CARETAKER PCP - General Family Medicine 03/24/16 02/04/23 documented as of this encounter
--- OUTSIDE RECORDS SUMMARY | 2024-05-02 15:14 | XMS_ITS | Encounter Summary ---
[place] [address] Care Team Providers Care Technical Research Scientist Name Role Phone Deborah Quiroga ANURAG Primary Care Provider [phone] Encounter Details Date Type Department Care Team (Late st Contact Info) Description 09/11/2016 Orders Only Hematology [place] [address] Alexandrea Greenwood RN Social History [...] the original note were not included. N [facility] HEM ONC [facility] [phone] Date: 09/11/16 Patient Name: Purnima Thacker : 1955 Diagnosis: Neutropenia Referral to [site]: [facility] Orders: ? Growth factor: [x] Neulasta 6mg SQ injection x 1 on 09/16/16 Signature: aMrkel Borjas MD beeper # [id number] Co-signature [if needed]: documented in this encounter Plan of Treatment Upcoming Encounters Date Type Department Care Team (Late st Contact Info) Description 05/12/2024 9:00 AM EDT Laboratory Appointment Lab [place] [facility] [place] [address] [place] [address] 05/12/2024 10:00 AM EDT Office Visit [place] [address] Markel Borjas MD [facility] [address] HEMATOLOGY [place] [address] 03/01/2025 4:15 PM EDT Office Visit Dermatology at [place] [address] [place] [address] Marek Bonilla MD [address], [place] [address] documented as of this encounter Procedures Procedure Name Priority Date/Time Associated Diagnosis Comments TRANSESOPHAGEAL ECHOCARDIOGRAM (GAVINO) Routine 09/22/2016 documented in this encounter Results * Transesophageal Echocardiogram (GAVINO) (09/22/2016) Anatomical Region Laterality Modality Other 09/22/2016 Narrative 09/22/2016 8:30 AM EST Procedure: ?Transesophageal Echocardiogram Patient: ?ANDREW ECHOLS M ? (Age): 1955(61y) Med Rec#: ? [id number] ?Sex: ?M ? [place] Loc: ? [facility] ?Ht / Wt: ??(cm)/ (kg) ? Pt. Loc: ?OR ? Study Date: ?? 09/21/2016 ?Pt. Type: Tape: ? Referring: Alirio Francisco Reading: Henrik Yarbrough ([id number]) Management Services Technician: Jacobo Patel ([id number]) Interpreting Fellow: Jacobo Patel ([id number]) Diagnosis: *Aortic valve disorders (424.1) CPT Codes: *Echo GAVINO Full (26349) Indication: ?? AVR for severe Rhythm: ? [...] ? Mid-Inferior ?Normal ? Mid-Inferoseptal ?Normal ? [place]-Septal ? Normal ? [place]-Anterior ? Normal ? [place]-Lateral ?Normal ? [place]-Inferior ? Normal ? [place]-Tip ?Normal ? This report has been electronically signed by: Henrik Yarbrough M.D. ? 09/22/2016 08:30:41 Images reviewed and interpretation verified [facility] Cardiac Ultrasound Laboratory Procedure Note Henrik Yarrbough MD - 09/22/2016 Procedure: Transesophageal Echocardiogram Patient: ANDREW Mejias (Age): 1955(61y) Med Rec#: [id number] Sex: M [place] Loc: [facility] Ht / Wt: (cm)/ (kg) Pt. Loc: OR Study Date: 09/21/2016 Pt. Type: Tape: Referring: Alirio Francisco Reading: Henrik Yarbrough ([id number]) Management Services Technician: Jacobo Patel ([id number]) Interpreting Fellow: Jacobo Patel ([id number]) Diagnosis: *Aortic valve disorders (424.1) CPT Codes: *Echo GAVINO Full (26469) Indication: AVR for severe Rhythm: Sinus SUMMARY: [...] Normal Mid-Posterolateral Normal Mid-Inferior Normal Mid-Inferoseptal Normal [place]-Septal Normal [place]-Anterior Normal [place]-Lateral Normal [place]-Inferior Normal [place]-Tip Normal This report has been electronically signed by: Henrik Yarbrough M.D. 09/22/2016 08:30:41 Images reviewed and interpretation verified [facility] Cardiac Ultrasound Laboratory Unknown ECHO ORDERABLES documented in this encounter Visit Diagnoses Not on filedocumented in this encounter Care Teams Technical Research Scientist Relationship Specialty Start Date End Date Deborah Quiroga APRN PCP - General Family Medicine 03/24/16 02/04/23 documented as of this encounter
--- OUTSIDE RECORDS SUMMARY | 2024-05-02 15:14 | XMS_ITS | Encounter Summary ---
Author Organization [facility] Address [facility] [place] [address] Care Team Providers Care Corn Chip Maker Name Role Phone Deborah Quiroga ANURAG Primary Care Provider [phone] Encounter Details Date Type Department Care Team (Late st Contact Info) Description 07/31/2016 External Results Hematology [place] [address] Alexandrea Greenwood RN Neutropenia, unspecified type Social [...] 9:00 AM EDT Laboratory Appointment Lab at [facility] [place] On[place] [address] [place] [address] 05/12/2024 10:00 AM EDT Office Visit Hematology [place] [address] Markel Borjas MD [facility] HEMATOLOGY [place] [address] 03/01/2025 4:15 PM EDT Office Visit Dermatology at [address] [address] Marek Bonilla MD [address], [place] [address] documented as of this encounter Procedures Procedure [...] type documented in this encounter Care Teams Corn Chip Maker Relationship Specialty Start Date End Date Deborah Quiroga APRN PCP - General Family Medicine 03/24/16 02/04/23 documented as of this encounter
--- OUTSIDE RECORDS SUMMARY | 2024-05-02 15:14 | XMS_ITS | Encounter Summary ---
Author Organization [facility] Address [facility] [place] [address] Care Team Providers Care Line Controller Name Role Phone Deborah Quiroga ANURAG Primary Care Provider [phone] Encounter Details Date Type Department Care Team (Latest Contact Info) Description 08/18/2016 4:40 PM EST Laboratory [place] [phone] Aortic valve stenosis, unspecified etiology Social History [...] 9:00 AM EDT Laboratory Appointment Lab at [facility] [place] On[place] [address] [place] [address] 05/12/2024 10:00 AM EDT Office Visit Hematology [place] [phone] Markel Borjas MD [facility] [address] H[place]AT[place] [address] 03/01/2025 4:15 PM EDT Office Visit Dermatology at [address] [phone] Marek Bonilla MD [address], [place] [address] documented as of this encounter Procedures Procedure [...] 4:50 PM EST) ABORH Type Recheck Completed [facility] Blood specimen (specimen) 08/18/2016 4:50 PM EST 08/18/2016 5:27 PM EST Narrative Resulting Agency Comment Spec In Lab Alirio Esparza MD BLOOD BANK [facility] [place] [facility] Organization Address City/State/ZIP Co de Phone Number [facility] [place] [address] * Antibody screen (08/18/2016 4:50 PM EST) Ab Screen Interp Negative [facility] Expires at [id number] on: 09/24/2016 [facility] Comment: Corrected from 09/17/16 12:00 [Unknown] on 09/09/16 02:32 by Shireen Treviño Blood specimen (specimen) 08/18/2016 4:50 PM EST 08/18/2016 5:11 PM EST Narrative Resulting Agency Comment Spec In Lab Alirio Esparza MD BLOOD BANK LAB [place] Performing Organization Address City/[facility]/ZIP Co de Phone Number [facility] [place] [address] * ABO/Rh Typing (08/18/2016 4:50 PM EST) [facility] Type B Pos [facility] Blood specimen (specimen) 08/18/2016 4:50 PM EST 08/18/2016 5:11 PM EST Narrative Resulting Agency Comment Spec In Lab Alirio Esparza MD BLOOD BANK LAB [place] Performing Organization Address [facility] Co de Phone Number [facility] [place] [address] * Basic Metabolic Panel (non-fasting) (08/18/2016 4:50 PM EST) [facility] Glucose 82 65 - 199 mg/dL [facility] Comment:Diabetes: >=200 mg/d L plus symptoms Blood Urea Nitrogen 12 8 - 18 mg/dL [facility] Creatinine 0.87 0.70 - 1.20 mg/dL [facility] Comment: Please note that the pediatric reference intervals supplied above were not validated at [facility]. Results from pediatric patients should be interpreted in conjunction to the patient's age, height and muscle mass. Sodium 142 135 - 145 mmol/L [facility] [...] the following links into your internet browser. [email or web address] Blood specimen (specimen) 08/18/2016 4:50 PM EST 08/18/2016 5:03 PM EST Narrative Resulting Agency Comment Spec In Lab Alirio Esparza MD CHEMISTRY ORDERABLE S [facility] [place] [address] documented in this encounter Visit Diagnoses Diagnosis Aortic valve stenosis, unspecified etiology documented in this encounter Care Teams Line Controller Relationship Specialty Start Date End Date Deborah Quiroga APRN PCP - General Family Medicine 03/24/16 02/04/23 documented as of this encounter
--- OUTSIDE RECORDS SUMMARY | 2024-05-02 15:14 | XMS_ITS | Encounter Summary ---
Author Organization [facility] Address [facility] [place] [address] Care Team Providers Care Cytopathology Technologist Name Role Phone Ashley Quirogan Cornelius ANURAG Primary Care Provider [phone] Encounter Details Date Type Department Care Team (Late st Contact Info) Description 08/11/2016 Telephone Hematology [place] [phone] Markel Borjas MD [facility] [address] HEMATOLOGY [place] [address] Social History Tobacco Use Types Packs/Day Years [place] [facility] [place] [address] [place] [address] 05/12/2024 10:00 AM EDT Office Visit Hematology [place] [address] Markel Borjas MD [facility] DR HEMATOLOGY [place] [address] 03/01/2025 4:15 PM EDT Office Visit Dermatology at [place] [address] [facility] [place] [phone] Marek Bonilla MD [address], [place] [address] documented as of this encounter Visit Diagnoses Not on filedocumented in this encounter Care Teams Cytopathology Technologist Relationship Specialty Start Date End Date Deborah Quiroga APRN PCP - General Family Medicine 03/24/16 02/04/23 documented as of this encounter
--- OUTSIDE RECORDS SUMMARY | 2024-05-02 15:14 | XMS_ITS | Encounter Summary ---
[place] [address] Care Team Providers Care Quotation Checker Name Role Phone JunaidDeborah APRN Primary Care Provider [phone] Reason for Visit * Reason Onset Date Comments Pre Procedure Call 06/18/2016 Encounter Details Date Type Department Care Team (Late st Contact Info) Description 06/18/2016 Telephone Hematology [place] [address] Alexandrea Greenwood RN Pre Procedure Call Social [...] AM EDT Laboratory Appointment Lab at [facility] Hematology Oncology [address] [place] [address] 05/12/2024 10:00 AM EDT Office Visit Hematology [place] [address] Markel Borjas MD [facility] [address] [place] [address] 03/01/2025 4:15 PM EDT Office Visit Dermatology at [place] [address] [facility] [place] [address] Marek Bonilla MD [address], [place] [address] documented as of this encounter Visit Diagnoses Not on filedocumented in this encounter Care Teams Quotation Checker Relationship Specialty Start Date End Date Deborah Quiroga, DOG WALKER PCP - General Family Medicine 03/24/16 02/04/23 documented as of this encounter
--- OUTSIDE RECORDS SUMMARY | 2024-05-02 15:14 | XMS_ITS | Encounter Summary ---
Author Organization [facility] [place] [address] Care Team Providers Care Brand Marketing Manager Name Role Phone Deborah Quiroga APRN Primary Care Provider [phone] Encounter Details Date Type Department Care Team (Late st Contact Info) Description 08/18/2016 4:20 PM EST Clinical [place] [phone] Social History Tobacco Use Types Packs/Day Years [...] 9:00 AM EDT Laboratory Appointment Lab at [facility] Hematology Oncology [address] [place] [address] 05/12/2024 10:00 AM EDT Office Visit [place]ematology [place] [address] Markel Borjas MD [facility] [address] [place] [address] 03/01/2025 4:15 PM EDT Office Visit Dermatology at [place] [address] [place] [address] Marek Bonilla MD [address], [place] [address] documented as of this encounter Visit Diagnoses Not on filedocumented in this encounter Care Teams Brand Marketing Manager Relationship Specialty Start Date End Date Deborah Quiroga APRN PCP - General Family Medicine 03/24/16 02/04/23 documented as of this encounter
--- OUTSIDE RECORDS SUMMARY | 2024-05-02 15:14 | XMS_ITS | Encounter Summary ---
Author Organization [facility] Address [facility] [place] [address] Care Team Providers Care Card Assembler Name Role Phone Deborah Quiroga APRN Primary Care Provider Encounter Details Date Type Department Care Team (Late st Contact Info) Description 07/17/2016 9:00 AM EST Office Visit Hematology [place] [address] Markel Borjas MD [facility] [address] HEMATOLOGY [place] [address] Neutropenia, unspecified type Social History Tobacco Use [...] 07/17/2016 9:00 AM EST Hematology Outpatient Clinic [facility] Hematology Outpatient Consult Note CC: 60 year [...] TOUCH PREP, CLOT SECTION, CORE ??BIOPSY); [OSR# [id number], COLLECTED 06/23/2016, 19 SLIDES]: ?1. 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 Will consi kanwal talking to pt's community chest officer about a switch from ACEI to ARB [...] the original note were not included. N [facility] H[facility] ONC [facility] [address] Date: 07/17/16 Patient Name: Purnima Thacker : 1955 Diagnosis: neutropenia Referral to [site]: [facility] Orders: ? Labs: Fax results to . [x] Draw CBC, copper level, CMV PCR, mononucleosis screen on 07/20 Repeat CBC on 07/30 (to measure response of WBC after Neulasta) ? Growth factor: [x] Neulasta 6mg SQ injection x 1 on 07/20/2016 Signature: Markel Borjas MD beeper # [id number] documented in this encounter Plan of Treatment Upcoming Encounters Date Type Department Care Team (Late st Contact Info) Description 05/12/2024 9:00 AM EDT Laboratory Appointment Lab at [facility] [place] On[place] [address] [place] [address] 05/12/2024 10:00 AM EDT Office Visit Hematology [place] [phone] Markel Borjas MD [facility] DR HEMATOLOGY [place] [address] 03/01/2025 4:15 PM EDT Office Visit Dermatology at [address] [place] [address] Marek Bonilla MD [address], QUOC A DERMATOLOGY [place], [place] [phone] documented as of this encounter Results * (ABNORMAL) CBC (with Diff) (07/31/2016 9:40 AM EST) Pathologist [facility] White Blood Cell 2.23(EXTER NAL/ABN) 4.4 - 10.8 EXTERNAL LAB Hemoglobin 12.6 12.0 - 16.0 EXTERNAL LAB Hematocrit 37.7 36.0 - 46.0 EXTERNAL LAB Platelet 167 130 - 400 EXTERNAL LAB Neutrophil Absolute (ANC) - Automated 1.17(EXTER NAL/ABN) 1.2 - 6.7 EXTERNAL LAB Blood specimen (specimen) 07/31/2016 9:40 AM EST Markel Borjas MD HEMATOLOGY ORDERAB LES Performing Organization Address City/[facility]/ZIP Co de Phone Number EXTERNAL LAB * Mononucleosis Screen (07/20/2016 10:30 AM EST) [facility] Mononucleosis Screen neg neg - neg EXTERNAL LAB Blood specimen (specimen) 07/20/2016 10:30 AM EST Markel Borjas MD IMMUNOLOGY ORDERAB LES Performing Organization Address City/[facility]/ZIP Co de Phone Number EXTERNAL LAB * Copper, serum (07/20/2016 10:30 AM EST) Pathologist [facility] Copper (NOVEMBER) 1.09 0.75 - 1.45 EXTERNAL LAB Blood specimen (specimen) 07/20/2016 10:30 AM EST Markel Borjas MD LAB SEND OUT ORDER JODIE Performing Organization Address City/[facility]/ZIP Co de Phone Number EXTERNAL LAB * CMV PCR, Quantitative (07/20/2016 10:30 AM EST) [facility] CMV PCR,Quantitati ve undetected EXTERNAL LAB [...] MD HEMATOLOGY ORDERAB LES Performing Organization Address City/[facility] Co de Phone Number EXTERNAL LAB documented in this encounter Visit Diagnoses Diagnosis Neutropenia, unspecified type documented in this encounter Care Teams Card Assembler Relationship Specialty Start Date End Date Deborah Quiroga APRN PCP - General Family Medicine 03/24/16 02/04/23 documented as of this encounter
--- OUTSIDE RECORDS SUMMARY | 2024-05-02 15:14 | XMS_ITS | Encounter Summary ---
Author Organization [facility] Address [facility] [place] [address] Care Team Providers Care Folder Taper Operator Name Role Phone Deborah Quiroga ANURAG Primary Care Provider [phone] Encounter Details Date Type Department Care Team (Late st Contact Info) Description 09/17/2016 External Results Hematology [place] [phone] Alexandrea Greenwood RN Neutropenia, unspecified type Social [...] 9:00 AM EDT Laboratory Appointment Lab at [facility] Hematology Oncology [address] [place] [address] 05/12/2024 10:00 AM EDT Office Visit Hematology [place] [address] Markel Borjas MD [facility] HEMATOLOGY [place] [address] 03/01/2025 4:15 PM EDT Office Visit Dermatology at [address] [address] Marek Bonilla MD [address], [place] [address] documented as of this encounter Procedures Procedure [...] type documented in this encounter Care Teams Folder Taper Operator Relationship Specialty Start Date End Date Deborah Quiroga APRN PCP - General Family Medicine 03/24/16 02/04/23 documented as of this encounter
--- OUTSIDE RECORDS SUMMARY | 2024-05-02 15:14 | XMS_ITS | Encounter Summary ---
Author Organization [facility] Address [facility] [place] [address] Care Team Providers Care Division Officer Weapons Department Name Role Phone Deborah Quiroga ANURAG Primary Care Provider [phone] Encounter Details Date Type Department Care Team (Late st Contact Info) Description 08/04/2016 External Results Hematology [place] [address] Alexandrea Greenwood RN Neutropenia, unspecified type Social [...] Lab at [facility] Hematology Oncology [address] [place] [address] 05/12/2024 10:00 AM EDT Office Visit Hematology [place] [address] Markel Borjas MD [facility] HEMATOLOGY [place] [address] 03/01/2025 4:15 PM EDT Office Visit Dermatology at [address] [address] Marek Bonilla MD [address], [place] [address] documented as of this encounter Procedures Procedure [...] type documented in this encounter Care Teams Division Officer Weapons Department Relationship Specialty Start Date End Date Deborah Quiroga APRN PCP - General Family Medicine 03/24/16 02/04/23 documented as of this encounter
--- OUTSIDE RECORDS SUMMARY | 2024-05-02 15:14 | XMS_ITS | Encounter Summary ---
[place] [address] Care Team Providers Care Pest Control Technician Name Role Phone Junaid Deborah Shields APRN Primary Care Provider [phone] Reason for Visit * Auth/Cert Specialty Diagnoses / Procedures Referred By Crispin t Referred To Contact Diagnoses Aortic stenosis Procedures PRO REPLACE AORT VALV, PROSTH VALV @REPLACE AORTIC VALVE, OPEN, W\CPB, W\PROSTHETIC VALVE (WRVU 41.32) Referral ID Status Reason Start Date Expiration Date Visits Re quested Visits Authorized [id number] 1 1 Encounter Details Date Type Department Care Team (Late st Contact Info) Description 09/21/2016 7:25 AM EST Anesthesia [place] [address] Luis Enrique Quarles MD [facility] [address] [place] [address] Henrik Cooper MD [facility] DR [place] [address] Anesthesia Record Procedure Summary Procedure Name Responsible [...] Sternotomy 0844 CV Bypass init 1009 Air Conditioning Unit Tester 1014 An Clamp Remove 1031 CP Bypass [...] Toshia Alejandre RN 03/30/22 1715 by Fredy iWng Chest Tube 09/21/16 (#28 angled chest tube to [place]: left: pericardial); Left; 09/22/16; 1119 09/21/16 0000 by Toshia Alejandre RN 09/22/16 1119 by Vero Bonilla RN Chest Tube 09/21/16 (#28 straig ht chest tube to [place]; right: mediastinal'); Right; mediastinum; 09/22/16; 1118 09/21/16 0000 by Toshia Alejandre RN 09/22/16 1118 by Vero Bonilla RN (RETIRED) Peripheral IV Line - Single Lumen 09/21/16; 0648; metacarpal vein (top of hand), left; cbyl-kum-cxpixc catheter system; 20 gauge; valdo Arteaga; 09/23/16; [...] Cooper MD - 09/21/2016 6:50 PM EST [facility] Department of Anesthesiology Post-procedure Note Patient: Purnima Thacker Procedure Summary Date Anesthesia Start Anesthesia Stop Room / Location 09/21/16 07 1152 [facility] OR 16 / [facility] MAIN OR Procedure Diagnosis Surgeon Responsible Provider @REPLACE AORTIC VALVE, OPEN, W\CPB, W\PROSTHETIC VALVE (WRVU 41.32) (N/A Chest); @AORTOPLASTY FOR SUPRAVALVULAR STENOSIS (WRVU 29.33) (N/A Chest) () Alirio Francisco MD Clark, Jeffrey A, MD All Anesthesia Providers: Anesthesiologist: Luis Enrique Quarles MD Concrete Boom Operator: Henrik Cooper MD Last (1hr) Vitals: BP Temp 36.1 ??C (97 ??F) (09/21/16 1800) Pulse 79 (09/21/16 1800) Resp 11 (09/21/16 1800) SpO2 98 % (09/21/16 1800) Patient Location: [facility] Level of Consciousness: Sedated (Pharmacologic/Intentional) Pain [...] AM EDT Laboratory Appointment Lab at [facility] Hematology Oncology [address] [place], [place] [id number] 05/12/2024 10:00 AM EDT Office Visit Hematology [place] [address] Markel Borjas MD [facility] DR HEMATOLOGY [place] [address] 03/01/2025 4:15 PM EDT Office Visit Dermatology at [place] [address] [phone] Marek Bonilla MD [address] [place] [address] documented as of this encounter Visit Diagnoses [...] mg documented in this encounter Care Teams Pest Control Technician Relationship Specialty Start Date End Date Deborah Quiroga APRN PCP - General Family Medicine 03/24/16 02/04/23 documented as of this encounter
--- OUTSIDE RECORDS SUMMARY | 2024-05-02 15:15 | XMS_ITS | Encounter Summary ---
[place] [address] Care Team Providers Care Corrections Counselor Name Role Phone Ashley Quirogan Cornelius ANURAG Primary Care Provider [phone] Encounter Details Date Type Department Care Team (Late st Contact Info) Description 03/24/2016 Notes [place] [phone] Alfa Lua Social History Tobacco Use Types [...] assessments completed: Wadsworth Score: 6/6 IADL: 7/7 Hunting Sales Associate Strength Trials: 18.4, 15.0, 16.8 (right hand dominant) 5 meter walk test in seconds x3: 4.98, 4.88, 4.45 KCCQol: 98% Alfa Lua documented in this encounter Plan of Treatment Upcoming Encounters Date Type Department Care Team (Late st Contact Info) Description 05/12/2024 9:00 AM EDT Laboratory Appointment Lab at [facility] Hematology Oncology [address] [place] [address] 05/12/2024 10:00 AM EDT Office Visit [place] [address] Markel Borjas MD [facility] DR HEMATOLOGY [place] [address] 03/01/2025 4:15 PM EDT Office Visit Dermatology at [place] [address] [place] [address] Marek Bonilla MD [address] [place] [address] documented as of this encounter Visit Diagnoses Not on filedocumented in this encounter Care Teams Corrections Counselor Relationship Specialty Start Date End Date Deborah Quiroga APRN PCP - General Family Medicine 03/24/16 02/04/23 documented as of this encounter
--- OUTSIDE RECORDS SUMMARY | 2024-05-02 15:15 | XMS_ITS | Encounter Summary ---
Author Organization [facility] Address [facility] [place] [address] Care Team Providers Care Psychiatric Nursing Aide Name Role Phone EitanMagnusDanni ANURAG Primary Care Provider [phone] Encounter Details Date Type Department Care Team (Latest Contact Info) Description 01/23/2014 7:45 AM EDT - 01/23/2014 5:50 PM EDT Hospital En[place] [address] Alan Jacobson MD [facility] [place] [address] Cardiomyopathy; SOB (shortness of breath) Discharge Disposition: [...] by your doctor, do not take any lyyr-ufv-goamzun medicines or herbal preparations without first discussing this with your doctor or pharmacist. There is the possibility of side effect and interactions when these are combined. Follow up Care Who to Call with Questions or Problems If there are any questions or problems that you think might be related to your cardiac cath or angioplasty, contact the oil well service unit operator travel sales consultant by calling [facility] at . documented in this encounter Medications at Time of Discharge Medication Sig Dispensed Refills Start Date End Date aspirin 81 mg EC tablet Take 81 mg by mouth daily. spironolactone (ALDACTONE) 25 mg tablet Take 12.5 mg by mouth daily. 01/17/2014 09/25/2016 buPROPion (WELLBUTRIN SR) 150 mg 12 hr tablet Take 150 mg by mouth 2 times daily. 12/13/2013 01/09/2022 carvedilol (COREG) 6.25 mg tablet Take 6.25 mg by mouth Twice daily. 01/17/2014 03/24/2016 ramipril (ALTACE) 5 mg capsule Take 5 mg by mouth daily. 12/13/2013 03/24/2016 fluvastatin (LESCOL) 40 mg capsule Take 40 [...] [facility] Hematology Oncology [address] [place] [address] 05/12/2024 10:00 AM EDT Office Visit Hematology [place] [address] Markel Borjas MD [facility] DR HEMATOLOGY [place] [address] 03/01/2025 4:15 PM EDT Office Visit Dermatology at [place] [address] [place] [address] Marek Bonilla MD [address], [place] [address] documented as of this encounter Procedures Procedure Name Priority Date/Time Associated Diagnosis Comments ECHOCARDIOGRAM TRANSTHORACIC Routine 01/23/2014 3:17 PM EDT SOB (shortness of breath) documented in this encounter Results * Echocardiogram Transthoracic(Leb) (01/23/2014 3:17 PM EDT) Pathologist [facility] EF 50 HEARTLAB SYSTEM Anatomical Region Laterality Modality Other 01/23/2014 Narrative 01/23/2014 4:35 PM EDT Procedure: ? Transthoracic Echocardiogram Patient: ? ANDREW ONESIMO M ?(Age): 1955(58) Med Rec#: ?[id number] ? Sex: ?F ? Site Loc: ?[facility] ? Ht / Wt: ??158(cm)/93(kg) Pt. Loc: ? Adult Floor ?BSA: ?2.02 Study Date: ?01/23/2014 ? Pt. Type: Inpatient Tape: ? Referring: Lee Kincaid ([id number]) Referring: ANNALISA Windows Systems Engineer: iMguel Beverly Diagnosis:CPT Code(s): ??Echo Full (29900), ??Spectral Doppler (57222), Color Doppler (42768), Indication(s): ??Aortic stenosis Rhythm: Sinus HR ?BP [...] ? Mid-Inferior ?Hypokinetic ? Mid-Inferoseptal ?Hypokinetic ? [place]-Septal ? Hypokinetic ? [place]-Anterior ? Hypokinetic ? [place]-Lateral ?Hypokinetic ? [place]-Inferior ? Hypokinetic ? [place]-Tip ?Hypokinetic ? Chambers ?Value ?Units (Range) [...] 01/23/2014 16:34:37 Images reviewed and interpretation verified [facility] Cardiac Ultrasound Laboratory Procedure Note Lee Kincaid MD - 01/23/2014 Procedure: Transthoracic Echocardiogram Patient: ANDREW Mejias (Age): 1955(58) Med Rec#: [id number] Sex: F Site Loc: [facility] Ht / Wt: 158(cm)/93(kg) Pt. Loc: Adult Floor BSA: 2.02 Study Date: 01/23/2014 Pt. Type: Inpatient Tape: Referring: Lee Kincaid ([id number]) Referring: ANNALISA Windows Systems Engineer: Miguel Beverly Diagnosis:CPT Code(s): Echo Full (42286), Spectral Doppler (82172), Color Doppler (85396), Indication(s): Aortic stenosis Rhythm: Sinus HR BP [...] Hypokinetic Mid-Posterolateral Hypokinetic Mid-Inferior Hypokinetic Mid-Inferoseptal Hypokinetic [place]-Septal Hypokinetic [place]-Anterior Hypokinetic [place]-Lateral Hypokinetic [place]-Inferior Hypokinetic [place]-Tip Hypokinetic Chambers Value Units (Range) IVSd [...] 01/23/2014 16:34:37 Images reviewed and interpretation verified [facility] Cardiac Ultrasound Laboratory Lee Kincaid MD ECHO [...] Routine 1224 (Given - Provid er: Alan Mckinnno MD) midazolam (PF) (VERSED) 1 mg/mL injection (CANCELED) ONCE PRN, Starting on Wed01/23/14 at 1158, Until Wed01/23/14 at 1224, Sleep, Cath (Intra-Procedure), Routine 1158 (Given - Provid er: Nitesh Stern RN)1224 (Given - Provider: Nitesh Stern RN) documented in this encounter Care Teams Psychiatric Nursing Aide Relationship Specialty Start Date End Date Danni Laird APRN [address] [place] [address] PCP - General 01/23/14 11/11/14 documented as of this encounter
--- OUTSIDE RECORDS SUMMARY | 2024-05-02 15:15 | XMS_ITS | Encounter Summary ---
Author Organization [facility] Address [facility] [place] [address] Care Team Providers Care Ship Purser Name Role Phone Deborah Quiroga APRN Primary Care Provider [phone] Reason for Visit * Reason Comments Schedule Office Case * Consultation (Routine) - Closed Specialty Diagnoses / Procedures Referred By Contac t Referred To Contact Hematology and Oncology Diagnoses Leukopenia Neutropenia LEUKOPENIA W/NEUTROPENIA Procedures TC PEGFILGRASTIM, 6MG, INJECTION LEUKOPENIA W/NEUTROPENIA Alirio Esparza MD [facility] CARDIOTHORACIC [place] [address] Mario Alberto Ramos Jr., MD [facility] DR HEMATOLOGY [place] [address] Referral ID Status Reason Start Date Expiration Date V isits Requested Visits Authorized [id number] Closed Consult, Test & Treat 07/17/2016 07/17/2017 1 1 Encounter Details Date Type Department Care Team (Late st Contact Info) Description 06/09/2016 3:00 PM EST Office Visit Hematology [place] [address] Mario Alberto Ramos Jr., MD [facility] [place] [address] Cyclical neutropenia Social History Tobacco Use Types [...] 06/09/2016 3:00 PM EST Hematology Outpatient Clinic [facility] Hematology Outpatient Consult Note CC: [...] Unknown See Comment Flow Cytometry Report Unknown [id number] ... HematoPathology: Flow Cytometry DIAGNOSIS 1. No [...] [facility] Hematology Oncology [address] [place] [address] 05/12/2024 10:00 AM EDT Office Visit Hematology [place] [address] Markel Borjas MD [facility] DR HEMATOLOGY [place] [address] 03/01/2025 4:15 PM EDT Office Visit Dermatology at [place] [address] [place] [address] Marek Bonilla MD [address], [place] [address] documented as of this encounter Procedures Procedure [...] (06/09/2016 4:53 PM EST) Flow Cytometry Report [id number] ?Location: 3K The signing pathologist has (i) [...] by the Clinical Flow Cytometry Laboratory at [facility]. It has not been cleared [...] high complexity clinical laboratory testing. SPECIMEN PROCESSING [id number] Cells for immunophenotypic analysis were derived from peripheral blood. ??CD45 vs side scatter gating was utilized to identify a lymphoid analysis region that comprises approximately 49-51% of all cells. The following markers were assessed: CD2, CD3, CD4, CD5, CD7, CD8, CD10, CD16, CD19, CD45, CD56, CD57, kappa light chain, and lambda light chain. CLINICAL INFORMATION 60 yo female with neutropenia. LGL panel requested. [facility] 06/09/2016 4:53 PM EST Mario Alberto Ramos Jr., MD PATHOLOGY/CYTOLOGY O RDERABLES Performing Organization Address City/[facility]/ZIP Co de Phone Number [facility] [place] [address] * Scan, Peripheral Blood (06/09/2016 4:53 PM EST) Plat estimate Normal [facility] RBC Morphology Normal [facility] Blood specimen (specimen) 06/09/2016 4:53 PM EST 06/09/2016 5:00 PM EST Narrative Resulting Agency Comment Spec In Lab Mario Alberto Ramos Jr., MD HEMATOLOGY ORDERABLE S Performing Organization Address City/[facility]/ZIP Co de Phone Number [facility] [place] [address] * (ABNORMAL) Differential, Automated (06/09/2016 4:53 PM EST) Pathologist [facility] Neutrophil % 27.7 % [facility] Neutrophil Absolute 0.48(Crit ical) 1.70 - 6.10 x10(3)/mc L [facility] Comment: Matches Previous Results.. This result has been called to NOT CALLED by Jesusita Argueta on 06 09 2016 at 1817, and has not been read back. MATCHES PREVIOUS RESULTS Lymph % 57.2 % [facility] Lymphocytes Abs 1.0 0.9 - 3.2 x10(3)/ L [facility] Monocyte % 13.3 % [facility] Monocyte Abs 0.2(L) 0.3 - 0.9 x10(3)/[facility] Eos % 0.6 % [facility] Eosinophils Abs 0.0 0.0 - 0.4 x10(3)/[facility] Basophil % 1.2 % [facility] Baso Absolute 0.0 0.0 - 0.1 x10(3)/[facility] Immature Gran % 0.00 % WHITE [...] Gran Absolute 0.00 0.00 - 0.04 x10(3)/[facility] Blood specimen (specimen) 06/09/2016 4:53 PM EST 06/09/2016 5:00 PM EST Narrative Resulting Agency Comment Spec In Lab Mario Alberto Ramos Jr., MD HEMATOLOGY ORDERABLE S Performing Organization Address City/State/[facility] Co de Phone Number [facility] [place] [address] * (ABNORMAL) Hemogram (06/09/2016 4:53 PM EST) White Blood Cell 1.7(Criti gabrielle) 4.0 - 9.5 x10(3)/[facility] Red Blood Cell 3.92(L) 4.00 - 5.21 x10(6)/[facility] Hemoglobin 12.4 11.7 - 15.5 gm/dL [facility] Hematocrit 36.7 35.7 - 45.8 % [facility] Mean Cell Volume 93.6 82.6 - 94.4 fL [facility] Mean Cell Hemoglobin 31.6 27.1 - 32.0 pg [facility] Mean Cell Hemoglobin Concentration 33.8 31.7 - 35.0 gm/dL [facility] Platelet 234 145 - 357 x10(3)/mc L [facility] RDW Standard Deviation 39.8 37.0 - 46.0 fL [facility] RDW coefficient of variation 11.8 11.5 - 14.1 % [facility] Mean Platelet Volume 8.6 7.6 - 12.9 fL [facility] NRBC% auto 0.0 % [facility] NRBC Absolute 0.000 0.000 - 0.000 x10(3)/mc L [facility] Blood specimen (specimen) 06/09/2016 4:53 PM EST 06/09/2016 5:00 PM EST Narrative Resulting Agency Comment Spec In Lab Mario Alberto Ramos Jr., MD HEMATOLOGY ORDERABLE S Performing Organization Address City/[facility]/ZIP Co de Phone Number [facility] [place] [address] * Immunophenotyping Flow Cytometry (06/09/2016 4:53 PM EST) Immunophenotyping Flow See Comment [facility] Comment: When completed by the Pathologist, the Flow Cytometry Report ([id number]) will display under the Pathology Results section within [facility]. Specimen of unknown material (specimen) 06/09/2016 4:53 PM EST 06/09/2016 5:00 PM EST Narrative Resulting Agency Comment Spec In Lab Mario Alberto Ramos Jr., MD HEMATOLOGY ORDERABLE S Performing Organization Address City/[facility]/ZIP Co de Phone Number [facility] [place] [address] documented in this encounter Visit Diagnoses Diagnosis Cyclical neutropenia Cyclic neutropenia documented in this encounter Care Teams Ship Purser Relationship Specialty Start Date End Date Deborah Quiroga APRN PCP - General Family Medicine 03/24/16 02/04/23 documented as of this encounter
--- OUTSIDE RECORDS SUMMARY | 2024-05-02 15:15 | XMS_ITS | Encounter Summary ---
[place] [address] Care Team Providers Care Snuff Maker Name Role Phone Mitchell Wilkes MD Primary Care Provider [phone] Reason for Visit * Reason Onset Date Comments Other 01/18/2014 Encounter Details Date Type Department Care Team (Late st Contact Info) Description 01/18/2014 Telephone Cardiology at [address] [phone] Jesusita Garces Other Social History Tobacco Use [...] [facility] Hematology Oncology [address] [place] [address] 05/12/2024 10:00 AM EDT Office Visit Hematology [place] [address] Markel Borjas MD [facility] [place] [address] 03/01/2025 4:15 PM EDT Office Visit Dermatology at [place] [address] [place] [address] Marek Bonilla MD [address] [place] [address] documented as of this encounter Visit Diagnoses Not on filedocumented in this encounter Care Teams Snuff Maker Relationship Specialty Start Date End Date Mitchell Wilkes MD [facility] PCP - General 06/24/10 01/19/14 documented as of this encounter
--- OUTSIDE RECORDS SUMMARY | 2024-05-02 15:15 | XMS_ITS | Encounter Summary ---
Author Organization [facility] Address [facility] [place] [address] Care Team Providers Care Fiberglass Fabricator Name Role Phone JunaidAshley hargrovezac Shields APRN Primary Care Provider [phone] Reason for Visit * Consultation (Urgent) - Closed Specialty Diagnoses / Procedures Referred By Contac t Referred To Contact Cardiac Surgery Diagnoses aortic stenosis, consideration for valve replacement Antelmo Burrell MD [address] [place] [address] Alirio Esparza MD [facility] [address] CARDIOTHORACIC [place] [address] Referral ID Status Reason Start Date Expiration Date V isits Requested Visits Authorized [id number] Closed Connection Center 03/04/2016 03/04/2017 1 1 Encounter Details Date Type Department Care Team (Late st Contact Info) Description 03/24/2016 10:40 AM EDT Office [place] [phone] Alirio Esparza MD Aortic valve stenosis, unspecified [...] This is a patient of Antelmo Burrell [facility] Cardiology. Mrs. Thacker is being [...] 30 minute visit, 20 minutes were spent [id number]-[id number] with the patient discussing aortic stenosis and valve replacement. documented in this encounter Plan of Treatment Upcoming Encounters Date Type Department Care Team (Late st Contact Info) Description 05/12/2024 9:00 AM EDT Laboratory Appointment Lab at [facility] Hematology Oncology [address] [place] [address] 05/12/2024 10:00 AM EDT Office Visit Hematology [place] [address] Markel Borjas MD [facility] [address] HEMATOLOGY [place] [address] 03/01/2025 4:15 PM EDT Office Visit Dermatology at [place] [address] [place] [phone] Marek Bonilla MD [address] [place] [address] documented as of this encounter Visit Diagnoses Diagnosis Aortic valve stenosis, unspecified etiology documented in this encounter Care Teams Fiberglass Fabricator Relationship Specialty Start Date End Date Deborah Quiroga APRN PCP - General Family Medicine 03/24/16 02/04/23 documented as of this encounter
--- OUTSIDE RECORDS SUMMARY | 2024-05-02 15:15 | XMS_ITS | Encounter Summary ---
Author Organization [facility] [place] [address] Care Team Providers Care Materials Engineer Name Role Phone Mitchell Wilkes MD Primary Care Provider [phone] Encounter Details Date Type Department Care Team (Late st Contact Info) Description 01/19/2014 Orders Only Cardiology at [address] [phone] Chele Randolph PA [facility] [place] [address] Cardiomyopathy (Primary Dx) Social History Tobacco Use [...] AM EDT Laboratory Appointment Lab at [facility] Hematology Oncology [address] [place] [address] 05/12/2024 10:00 AM EDT Office Visit Hematology [place] [phone] Markel Borjas MD [facility] [address] [place] [address] 03/01/2025 4:15 PM EDT Office Visit Dermatology at [place] [address] [place] [phone] Marek Bonilla MD [address] [place] [address] documented as of this encounter Procedures Procedure [...] cardiomyopathies documented in this encounter Care Teams Materials Engineer Relationship Specialty Start Date End Date Mitchell Wilkes MD [facility] PCP - General 06/24/10 01/19/14 documented as of this encounter
--- OUTSIDE RECORDS SUMMARY | 2024-05-02 15:15 | XMS_ITS | Encounter Summary ---
Author Organization [facility] Address [facility] [place] [address] Care Team Providers Care Performance Architect Name Role Phone Ashley Quirogan Cornelius ANURAG Primary Care Provider [phone] [phone] Encounter Details Date Type Department Care Team (Latest Contact Info) Description 05/19/2016 11:20 AM EDT Laboratory [place] [phone] Nonrheumatic aortic valve stenosis Social History Tobacco [...] 9:00 AM EDT Laboratory Appointment Lab at [facility] Hematology Oncology [address] [place] [address] 05/12/2024 10:00 AM EDT Office Visit Hematology [place] [phone] Markel Borjas MD [facility] [place] [address] 03/01/2025 4:15 PM EDT Office Visit Dermatology at [address] [address] Marek Bonilla MD [address], [place] [address] documented as of this encounter Procedures Procedure Name Priority Date/Time Associated Diagnosis Comments SCAN, PERIPHERAL BLOOD Routine 05/19/2016 11:32 AM EDT HEMOGRAM Routine 05/19/2016 11:32 AM EDT Nonrheumatic aortic valve stenosis DIFFERENTIAL, AUTOMATED Routine 05/19/2016 11:32 AM EDT Nonrheumatic aortic valve stenosis TYPE AND SCREEN, SDP (FUTURE SURGERY, [facility] SAME DAY PROGRAM ONLY) [...] (05/19/2016 11:32 AM EDT) Plat estimate Normal [facility] RBC Morphology Normal [facility] Blood specimen (specimen) 05/19/2016 11:32 AM EDT 05/19/2016 11:41 AM EDT Narrative Resulting Agency Comment Spec In Lab Alirio Esparza MD HEMATOLOGY ORDERABL ES [facility] [place] [address] * (ABNORMAL) Differential, Automated (05/19/2016 11:32 AM EDT) Pathologist Iron Neutrophil % 25.9 % [facility] Neutrophil Absolute 0.42(Crit ical) 1.70 - 6.10 x10(3)/[facility] Comment: This result has been called to DR ALIRIO ESPARZA by Alivia Ibarra on 05 19 2016 at 1228, and has been read back. Lymph % 59.9 % [facility] Lymphocytes Abs 1.0 0.9 - 3.2 x10(3)/[facility] Monocyte % 13.0 % [facility] Monocyte Abs 0.2(L) 0.3 - 0.9 x10(3)/[facility] Eos % 0.6 % [facility] Eosinophils Abs 0.0 0.0 - 0.4 x10(3)/[facility] Basophil % 0.6 % [facility] Baso Absolute 0.0 0.0 - 0.1 x10(3)/[facility] Immature Gran % 0.00 % [facility] Comment: Immature granulocytes(IG's)percentage and absolute count will include metamyelocytes, myelocytes, and promyelocytes. Blood smears from CBCs yielding IG's will be scanned manually for concordance. If this scan disagrees with the automated IG or if promyelocytes are noted, a manual differential will be performed. Immature Gran Absolute 0.00 0.00 - 0.04 x10(3)/[facility] Blood specimen (specimen) 05/19/2016 11:32 AM EDT 05/19/2016 11:41 AM EDT Narrative Resulting Agency Comment Spec In Lab Alirio Esparza MD HEMATOLOGY ORDERABL ES [facility] [place] [address] * (ABNORMAL) Hemogram (05/19/2016 11:32 AM EDT) White Blood Cell 1.6(Criti gabrielle) 4.0 - 9.5 x10(3)/mc L [facility] Comment: This result has been called to DR ALIRIO ESPARZA by Alivia Ibarra on 05 19 2016 at 1228, and has been read back. Red Blood Cell 3.96(L) 4.00 - 5.21 x10(6)/mc L [facility] Hemoglobin 12.5 11.7 - 15.5 gm/dL [facility] Hematocrit 37.9 35.7 - 45.8 % [facility] Mean Cell Volume 95.7(H) 82.6 - 94.4 fL [facility] Mean Cell Hemoglobin 31.6 27.1 - 32.0 pg [facility] Mean Cell Hemoglobin Concentration 33.0 31.7 - 35.0 gm/dL [facility] Platelet 227 145 - 357 x10(3)/ L [facility] RDW Standard Deviation 40.5 37.0 - 46.0 [facility] RDW coefficient of variation 11.5 11.5 - 14.1 % [facility] Mean Platelet Volume 8.4 7.6 - 12.9 fL [facility] NRBC% auto 0.0 % [facility] NRBC Absolute 0.000 0.000 - 0.000 x10(3)/ L [facility] Blood specimen (specimen) 05/19/2016 11:32 AM EDT 05/19/2016 11:41 AM EDT Narrative Resulting Agency Comment Spec In Lab Alirio Esparza MD HEMATOLOGY ORDERABL ES [facility] [place] [address] * Antibody screen (05/19/2016 11:32 AM EDT) Ab Screen Interp Negative [facility] Expires at [id number] on: 07/03/2016 [facility] Comment: Corrected from 06/11/16 12:00 [Unknown] on 06/09/16 05:51 by Bethanie Tomlinson I.. Corrected from 07/03/16 12:00 [Unknown] on 05/21/16 06:00 by Shelia Barrera Blood specimen (specimen) 05/19/2016 11:32 AM EDT 05/19/2016 11:35 AM EDT Narrative Resulting Agency Comment Spec In Lab Alirio Esparza MD BLOOD BANK LAB ORDCornelius ALEJO [facility] [place] [address] * ABO/Rh Typing (05/19/2016 11:32 AM EDT) Pathologist [facility] ABORH Type B Pos [facility] Blood specimen (specimen) 05/19/2016 11:32 AM EDT 05/19/2016 11:35 AM EDT Narrative Resulting Agency Comment Spec In Lab Alirio Esparza MD BLOOD BANK LAB BETH ALEJO [facility] [place] [address] * Basic Metabolic Panel (non-fasting) (05/19/2016 11:32 AM EDT) [facility] Glucose 86 65 - 199 mg/dL [facility] Comment:Diabetes: >=200 mg/d L plus symptoms Blood Urea Nitrogen 13 8 - 18 mg/dL [facility] Creatinine 0.95 0.70 - 1.20 mg/dL [facility] Comment: Please note that the pediatric reference intervals supplied above were not validated at [facility]. Results from pediatric patients should be interpreted in conjunction to the patient's age, height and muscle mass. Sodium 140 135 - 145 mmol/L [facility] Potassium 4.3 3.5 - 5.0 mmol/L [facility] Comment: Please note: ??Patients with WBC >100,000 may have falsely elevated Potassium levels. ??For accurate Potassium quantification in these patients send serum separator tube (gold top) for subsequent determinations. ??Contact the Clinical Chemistry Laboratory if there are any questions. Chloride 101 98 - 107 mmol/L [facility] Carbon Dioxide 27 22 - 31 mmol/L [facility] Anion Gap 12 5 - 15 mmol/L [facility] Calcium 10.1 8.5 - 10.5 mg/dL [facility] Est Glomerular Filtration Rate 60 >=60 [facility] Comment: [...] the following links into your internet browser. [email or web address] Blood specimen (specimen) 05/19/2016 11:32 AM EDT 05/19/2016 11:41 AM EDT Narrative Resulting Agency Comment Spec In Lab Alirio Esparza MD CHEMISTRY ORDERABLE S [facility] [place] [address] documented in this encounter Visit Diagnoses Diagnosis Nonrheumatic aortic valve stenosis Aortic valve disorders documented in this encounter Care Teams Performance Architect Relationship Specialty Start Date End Date Deborah Quiroga APRN PCP - General Family Medicine 03/24/16 02/04/23 documented as of this encounter
--- OUTSIDE RECORDS SUMMARY | 2024-05-02 15:15 | XMS_ITS | Encounter Summary ---
Author Organization [facility] Address [facility] [place] [address] Care Team Providers Care Hand Splitter Name Role Phone Deborah Quiroga APRN Primary Care Provider [phone] Encounter Details Date Type Department Care Team (Latest Contact Info) Description 05/19/2016 11:52 AM EDT - 05/19/2016 11:59 PM EDT Hospital Encounter XRay at [address] [place] [address] Alirio Esparza MD Nonrheumatic aortic valve stenosis [...] tablet Take 81 mg by mouth daily. ramipril (ALTACE) 10 mg Capsule Take 10 [...] by mouth 2 times daily. 12/13/2013 01/09/2022 chlorhexidine (HIBICLENS) 4 % LiquidIndications:Non rheumatic aortic valve stenosis Apply topically daily as needed. Shower from head to toe with Chlorhexidine the night before surgery . 120 mL 05/19/2016 09/25/2016 documented as of this encounter Plan of Treatment Upcoming Encounters Date Type Department Care Team (Late st Contact Info) Description 05/12/2024 9:00 AM EDT Laboratory Appointment Lab at [facility] Hematology Oncology [address] [place] [address] 05/12/2024 10:00 AM EDT Office Visit Hematology [place] [address] Markel Borjas MD [facility] [address] [place] [address] 03/01/2025 4:15 PM EDT Office Visit Dermatology at [place] [address] [place] [address] Marek Bonilla MD [address] [facility], [place] [address] documented as of this encounter Procedures Procedure [...] disorders documented in this encounter Care Teams Hand Splitter Relationship Specialty Start Date End Date Deobrah Quiroga, FIELD INSTRUCTOR PCP - General Family Medicine 03/24/16 02/04/23 documented as of this encounter
--- OUTSIDE RECORDS SUMMARY | 2024-05-02 15:15 | XMS_ITS | Encounter Summary ---
Author Organization [facility] [place] [address] Care Team Providers Care Brick Washer Name Role Phone Deborah Quiroga ANURAG Primary Care Provider [phone] Encounter Details Date Type Department Care Team (Late st Contact Info) Description 05/22/2016 Orders Only Cardiology at [address] [phone] Chele Randolph PA [facility] [place] [address] Aortic valve stenosis, unspecified etiology Social History [...] 9:00 AM EDT Laboratory Appointment Lab at [facility] Hematology Oncology [address] [place] [address] [phone] 05/12/2024 10:00 AM EDT Office Visit Hematology [place] [phone] Markel Borjas MD [facility] [address] [place] [address] 03/01/2025 4:15 PM EDT Office Visit Dermatology at [place] [address] [facility] [place] [phone] Marek Bonilla MD [address] [address], [place] [address] documented as of this encounter Procedures Procedure Name Priority Date/Time Associated Diagnosis Comments CARDIAC CATHETERIZATION Routine 06/03/20 16 9:13 AM EDT Aortic valve stenosis, unspecified etiology documented in this encounter Results * CARDIAC CATHETERIZATION (06/03/2016 9:13 AM EDT) Anatomical Region Laterality Modality Other Narrative 06/03/2016 10:13 AM EDT ?[facility] ? Cardiac Catheterization/Intervention Report ? Patient Name: Purnima Thacker. ? Procedure Date: 06/03/2016 ? A #: [id number] ? Primary Physician: Nitesh Escobedo ? Case #: [id number] ? File Name: [id number] ? Catheterization Order Number: [id number] ? [facility] ? Final Report [place], [place] ? Patient Name: ? Purnima M. Kirstie ? ID#: ?[id number] ? : ?1955 ? Procedure Date: ? [...] no symptom, no angina (w/i 14 days). Thai ?Cardiovascular Society angina class was 0. This [...] ? Procedure Nitesh Marroquin, MD - 09/21/2016 [facility] Cardiac Catheterization/Intervention Report Patient Name: Purnima Thacker Procedure Date: 06/03/2016 A #: [id number] Primary Physician: Nitesh Escobedo Case #: [id number] File Name: [id number] Catheterization Order Number: [id number] [facility] FinalReport [place], [place] Patient Name: Purnima Thacker ID#:[id number] :1955 Procedure Date: June 03, 2016 Case [...] with: no symptom, no angina (w/i 14 days).Thai Cardiovascular Society angina class was 0. This [...] etiology documented in this encounter Care Teams Brick Washer Relationship Specialty Start Date End Date Deborah Quiroga, ELECTRICAL AND RADIO MOCK UP MECHANIC PCP - General Family Medicine 03/24/16 02/04/23 documented as of this encounter
--- OUTSIDE RECORDS SUMMARY | 2024-05-02 15:15 | XMS_ITS | Encounter Summary ---
Author Organization [facility] [place] [address] Care Team Providers Care Frozen Meat Cutter Name Role Phone Junaid, Deborah Shileds APRN Primary Care Provider [phone] Encounter Details Date Type Department Care Team (Late st Contact Info) Description 05/19/2016 10:00 AM EDT Office Visit [place] [phone] Alirio Esparza MD Nonrheumatic aortic valve stenosis [...] [facility] Hematology Oncology [address] [place] [address] 05/12/2024 10:00 AM EDT Office Visit Hematology [place] [address] Markel Borjas MD [facility] [address] [place]Y [place] [address] 03/01/2025 4:15 PM EDT Office Visit Dermatology at [place] [address] [facility] [place] [phone] Marek Bonilla MD [address] [facility], [place] [address] documented as of this encounter Results * [...] (Bezet) 448 ms MUSE SYSTEM Calculated P [place] 37 degrees MUSE SYSTEM Calculated R [place] 31 degrees MUSE SYSTEM Calculated T [place] 25 degrees MUSE SYSTEM INTERPRETATION Normal sinus rhythm Normal ECG No previous ECGs available Confirmed by MD Becca, Deangelo ([id number]) on 05/19/2016 5:23:33 PM MUSE SYSTEM 05/19/2016 11:4 3 AM EDT 05/19/2016 5:23 PM EDT Alirio Esparza MD ECG ORDERABLES MUSE SYSTEM * Basic Metabolic Panel (non-fasting) (05/19/2016 11:32 AM EDT) Glucose 86 65 - 199 mg/dL [facility] [...] the following links into your internet browser. [email or web address] Blood specimen (specimen) 05/19/2016 11:32 AM EDT 05/19/2016 11:41 AM EDT Narrative Resulting Agency Comment Spec In Lab Alirio Esparza MD CHEMISTRY ORDERABLE S [facility] [place] [address] documented in this encounter Visit Diagnoses Diagnosis Nonrheumatic aortic valve stenosis Aortic valve disorders Nonrheumatic aortic valve stenosis Aortic valve disorders documented in this encounter Care Teams Frozen Meat Cutter Relationship Specialty Start Date End Date Deborah Quiroga, NAIL EXPERT PCP - General Family Medicine 03/24/16 02/04/23 documented as of this encounter
--- OUTSIDE RECORDS SUMMARY | 2024-05-02 15:15 | XMS_ITS | Encounter Summary ---
Author Organization [facility] [address] Care Team Providers Care Gut Puller Name Role Phone Danni Laird FIBERGLASS GRINDER Primary Care Provider [phone] Encounter Details Date Type Department Care Team (Late st Contact Info) Description 01/23/2014 Orders Only Cardiology at [address] [phone] Lee Kincaid MD [facility] [place] [address] SOB (shortness of breath) (Primary Dx) Social [...] [facility] Hematology Oncology [address] [place] [address] 05/12/2024 10:00 AM EDT Office Visit [place] [address] Markel Borjas MD [facility] [address] [place] [address] 03/01/2025 4:15 PM EDT Office Visit Dermatology at [place] [address] [facility] [place] [phone] Marek Bonilla MD [address], [place] [address] documented as of this encounter Results * Echocardiogram Transthoracic(Leb) (01/23/2014 3:17 PM EDT) EF 50 [facility]ART[facility] SYSTEM Anatomical Region Laterality Modality Other 01/23/2014 Narrative 01/23/2014 4:35 PM EDT Procedure: ? Transthoracic Echocardiogram Patient: ? ANDREW ECHOLS M ?(Age): 1955(58) Med Rec#: ?[id number] ? Sex: ?F ? Site Loc: ?[facility] ? Ht / Wt: ??158(cm)/93(kg) Pt. Loc: ? Adult Floor ?BSA: ?2.02 Study Date: ?01/23/2014 ? Pt. Type: Inpatient Tape: ? Referring: Lee Kincaid ([id number]) Referring: ANNALISA Meal Room Hand: Miguel Beverly Diagnosis:CPT Code(s): ??Echo Full (96796), ??Spectral Doppler (67818), Color Doppler (79864), Indication(s): ??Aortic stenosis Rhythm: Sinus HR ?BP [...] ? Mid-Inferior ?Hypokinetic ? Mid-Inferoseptal ?Hypokinetic ? [place]-Septal ? Hypokinetic ? [place]-Anterior ? Hypokinetic ? [place]-Lateral ?Hypokinetic ? [place]-Inferior ? Hypokinetic ? [place]-Tip ?Hypokinetic ? Chambers ?Value ?Units (Range) ? [...] Patient: ANDREW Mejias (Age): 1955(58) Med Rec#: [id number] Sex: F Site Loc: [facility] Ht / Wt: 158(cm)/93(kg) Pt. Loc: Adult Floor BSA: 2.02 Study Date: 01/23/2014 Pt. Type: Inpatient Tape: Referring: Lee Kincaid ([id number]) Referring: ANNALISA Meal Room Hand: Miguel Beverly Diagnosis:CPT Code(s): Echo Full (68412), Spectral Doppler (94804), Color Doppler (62090), Indication(s): Aortic stenosis Rhythm: Sinus HR BP [...] Hypokinetic Mid-Posterolateral Hypokinetic Mid-Inferior Hypokinetic Mid-Inferoseptal Hypokinetic [place]-Septal Hypokinetic [place]-Anterior Hypokinetic [place]-Lateral Hypokinetic [place]-Inferior Hypokinetic [place]-Tip Hypokinetic Chambers Value Units (Range) IVSd 2D [...] breath documented in this encounter Care Teams Gut Puller Relationship Specialty Start Date End Date Danni Laird APRN [address] [facility] [place] [place] [address] PCP - General 01/23/14 11/11/14 documented as of this encounter
--- OUTSIDE RECORDS SUMMARY | 2024-05-02 15:15 | XMS_ITS | Encounter Summary ---
Author Organization [facility] Address [facility] [place] [address] Care Team Providers Care Direct Chill Caster Name Role Phone Junaid, Deborah Shields APRN Primary Care Provider [phone] Reason for Visit * Auth/Cert Specialty Diagnoses / Procedures Referred By Crispin t Referred To Contact Diagnoses AVS Procedures CARDIAC CATHETERIZATION Referral ID Status Reason Start Date Expiration Date Visits Re quested Visits Authorized [id number] 1 1 Encounter Details Date Type Department Care Team (Late st Contact Info) Description 06/03/2016 7:30 AM EDT - 06/03/2016 8:30 AM EDT Surgery [place] [phone] Mairo Alberto Escobedo MD [facility] [place] [address] CARDIAC CATHETERIZATION Social History Tobacco Use Types [...] by your doctor, do not take any tieh-tnm-[id number] medicinesor herbal preparations without first discussing this with your doctor or pharmacist. There is the possibility of side effects and interactions when these are combined. Follow Up Care Who to call with questions or problems If there are any questions or problems that you think might be related to your cardiac cath or angioplasty, contact the cloud systems architect wire preparation machine tender by calling [facility] at . * Patient Instructions* Felicia Corrigan - 06/03/2016 9:33 AM EDT Cardiology Instructions Call your doctor if: Chest pain, dyspnea, pain or swelling in legs occurs. If you have non-emergent questions between now and the time of your follow up appointments: -During 8am-5pm Wednesday through Wednesday call [phone] to speak with a nurse in the cardiology clinic -All other times call [phone] and ask to speak to the cook fry wire preparation machine tender. MEDICATIONS - restart your spironolactone, discontinue prior [...] Appointments: Primary care provider: Cardiology: Deborah Hahn, CLUB MANAGER [phone] Follow up as planned or as needed. Dr. Esparza [phone] Other follow-up appointment: Hematology - Dr. Mario [...] 05/19/2016 09/25/2016 documented as of this encounter Progress Notes [...] [facility] H[facility] Oncology [address] [place] [address] 05/12/2024 10:00 AM EDT Office Visit Hematology [place] [address] Markel Borjas MD [facility] DR HEMATOLOGY [place] [address] 03/01/2025 4:15 PM EDT Office Visit Dermatology at [place] [address] [facility] [place] [phone] Marek Bonilla MD [address], [place] [address] documented as of this encounter Procedures Procedure [...] AM EDT) Green Hold Sample in lab. [facility] Blood specimen (specimen) Venous Draw / Unknown 06/03/2016 11:45 AM EDT 06/03/2016 12:12 PM EDT Mario Alberto Escobedo MD CHEMISTRY ORDERABLES Performing Organization Address City/[facility]/ZIP Co de Phone Number [facility] [place] [address] * Methylmalonic acid, serum (06/03/2016 11:45 AM EDT) Methylmalonic Acid (NOVEMBER) 0.21 <=0.40 nmol/mL [facility] Comment: Test Performed by: [address] [address] Freight Service Inspector: Raymond Chaudhry II, M.D., Ph.D. Blood specimen (specimen) 06/03/2016 11:45 AM EDT 06/03/2016 1:57 PM EDT Narrative Resulting Agency Comment Spec In Lab Mario Alberto Escobedo MD LAB SEND OUT ORDERAB LES Performing Organization Address City/[facility]/ZIP Co de Phone Number [facility] [place] [address] * Granulocyte Antibody (06/03/2016 11:45 AM EDT) Pathologist [facility] Granulocyte Ab (NOVEMBER) Negative Not Applicable [facility] Comment: ADDITIONAL INFORMATION Method: Immunofluorescent Assay Performing Laboratory CLIA# [id number] This test was developed and its performance characteristics determined by [facility] in a manner consistent with CLIA requirements. This test has not been cleared or approved by the U.S. Food and Drug Administration. Test Performed by: [place] [address] Freight Service Inspector: Raymond Chaudhry II, M.D., Ph.D. Blood specimen (specimen) 06/03/2016 11:45 AM EDT 06/03/2016 1:57 PM EDT Narrative Resulting Agency Comment Spec In Lab Mario Alberto Escobedo MD LAB SEND OUT ORDERAB LES [facility] [place] [address] * TSH (06/03/2016 11:45 AM EDT) Pathologist [facility] Thyroid Stimulating Hormone 2.18 0.27 - 4.20 mcIU/mL [facility] Blood specimen (specimen) 06/03/2016 11:45 AM EDT 06/03/2016 12:11 PM EDT Narrative Resulting Agency Comment Spec In Lab Mario Alberto Escobedo MD CHEMISTRY ORDERABLES Performing Organization Address City/[facility]/ZIP Co de Phone Number [facility] [place] [address] * Homocysteine Total, Plasma (06/03/2016 11:45 AM EDT) Homocystine 9 <=15 mcmol/L [facility] Blood specimen (specimen) 06/03/2016 11:45 AM EDT 06/03/2016 12:11 PM EDT Narrative Resulting Agency Comment Spec In Lab Mario Alberto Escobedo MD CHEMISTRY ORDERABLES Performing Organization Address City/[facility] Co de Phone Number [facility] [place] [address] * Folate, serum (06/03/2016 11:45 AM EDT) Folate >20.0 4.8 - 24.2 ng/mL [facility] Blood specimen (specimen) 06/03/2016 11:45 AM EDT 06/03/2016 12:04 PM EDT Narrative Resulting Agency Comment Spec In Lab Mario Alberto Escobedo MD CHEMISTRY ORDERABLES Performing Organization Address [facility] Co de Phone Number [facility] [place] [address] * (ABNORMAL) Sedimentation rate (06/03/2016 11:45 AM EDT) Sedimentation Rate Automated 41(H) 0 - 20 mm/hr [facility] Blood specimen (specimen) 06/03/2016 11:45 AM EDT 06/03/2016 12:04 PM EDT Narrative Resulting Agency Comment Spec In Lab Mario Alberto Escobedo MD HEMATOLOGY ORDERABLE S Performing Organization Address City/[facility] Co de Phone Number [facility] [place] [address] * Lactate Dehydrogenase (06/03/2016 11:45 AM EDT) Lactate Dehydrogenase 164 110 - 220 unit/L [facility] Blood specimen (specimen) 06/03/2016 11:45 AM EDT 06/03/2016 12:11 PM EDT Narrative Resulting Agency Comment Spec In Lab Mario Alberto Escobedo MD CHEMISTRY ORDERABLES Performing Organization Address City/[facility]/ZIP Co de Phone Number [facility] [place] [address] * Comprehensive metabolic panel (non-fasting) (06/03/2016 11:45 AM EDT) Glucose 90 65 - 199 mg/dL [facility] Comment:Diabetes: >=200 mg/d L plus symptoms Blood Urea Nitrogen 11 8 - 18 mg/dL [facility] Creatinine 0.83 0.70 - 1.20 mg/dL [facility] Comment: Please note that the pediatric reference intervals supplied above were not validated at [facility]. Results from pediatric patients should be interpreted in conjunction to the patient's age, height and muscle mass. Sodium 143 135 - 145 mmol/L [facility] Potassium 4.0 3.5 - 5.0 mmol/L [facility] Comment: Please note: ??Patients with WBC >100,000 may have falsely elevated Potassium levels. ??For accurate Potassium quantification in these patients send serum separator tube (gold top) for subsequent determinations. ??Contact the Clinical Chemistry Laboratory if there are any questions. Chloride 104 98 - 107 mmol/L [facility] Carbon Dioxide 25 22 - 31 mmol/L [facility] Anion Gap 14 5 - 15 mmol/L [facility] Calcium 9.2 8.5 - 10.5 mg/dL [facility] Protein, Total 7.0 6.1 - 8.0 gm/dL [facility] Albumin 4.0 3.2 - 5.2 gm/dL [facility] Aspartate Aminotransferase 17 0 - 30 unit/L [facility] Alanine Aminotransferase 9 0 - 30 unit/L [facility] Alkaline Phosphatase 81 40 - 104 unit/L [facility] Bilirubin, Total 0.4 0.2 - 1.3 mg/dL [facility] Bilirubin, Direct 0.1 0.0 - 0.3 mg/dL [facility] Est Glomerular [...] the following links into your internet browser. [email or web address] Blood specimen (specimen) 06/03/2016 11:45 AM EDT 06/03/2016 12:11 PM EDT Narrative Resulting Agency Comment Spec In Lab Mario Alberto Escobedo MD CHEMISTRY ORDERABLES [facility] [place] [address] documented in this encounter Visit Diagnoses Diagnosis [...] Hernandez) documented in this encounter Care Teams Direct Chill Caster Relationship Specialty Start Date End Date Deborah Quiroga APRN PCP - General Family Medicine 03/24/16 02/04/23 documented as of this encounter
--- OUTSIDE RECORDS SUMMARY | 2024-05-02 15:15 | XMS_ITS | Encounter Summary ---
Author [facility] [place] [address] Care Team Providers Care Plate Roller Name Role Phone Eitan Danni ANURAG Primary Care Provider Encounter Details Date Type Department Care Team (Late st Contact Info) Description 01/23/2014 9:25 AM EDT - 01/23/2014 10:25 AM EDT [place] [address] Alan Jacobson MD [facility] [address] CARDIAC CATHETERIZATION Social History Tobacco Use Types [...] by your doctor, do not take any zplj-cwo-ywfjosk medicines or herbal preparations without first discussing this with your doctor or pharmacist. There is the possibility of side effect and interactions when these are combined. Follow up Care Who to Call with Questions or Problems If there are any questions or problems that you think might be related to your cardiac cath or angioplasty, contact the intel analyst produce production team member by calling [facility] at . documented in this encounter Medications [...] [facility] Hematology Oncology [address] [place] [address] 05/12/2024 10:00 AM EDT Office Visit Hematology [place] [address] Markel Borjas MD [facility] [address] [place] [address] 03/01/2025 4:15 PM EDT Office Visit Dermatology at [place] [address] [facility] [place] [address] Marek Bonilla MD [address], [place] [address] documented as of this encounter Procedures Procedure Name Priority Date/Time Associated Diagnosis Comments ECHOCARDIOGRAM TRANSTHORACIC Routine 01/23/2014 3:17 PM EDT SOB (shortness of breath) documented in this encounter Results * Echocardiogram Transthoracic(Leb) (01/23/2014 3:17 PM EDT) [facility] EF 50 [employer] SYSTEM Anatomical Region Laterality Modality Other 01/23/2014 Narrative 01/23/2014 4:35 PM EDT Procedure: ? Transthoracic Echocardiogram Patient: ? ANDREW ONESIMO M ?(Age): 1955(58) Med Rec#: ?[id number] ? Sex: ?F ? Site Loc: ?[facility] ? Ht / Wt: ??158(cm)/93(kg) Pt. Loc: ? Adult Floor ?BSA: ?2.02 Study Date: ?01/23/2014 ? Pt. Type: Inpatient Tape: ? Referring: Lee Kincaid ([id number]) Referring: ANNALISA Air Compressor Engineer: Miguel Beverly Diagnosis:CPT Code(s): ??Echo Full (95070), ??Spectral Doppler (44554), Color Doppler (99364), Indication(s): ??Aortic stenosis Rhythm: Sinus HR ?BP [...] ? Mid-Inferior ?Hypokinetic ? Mid-Inferoseptal ?Hypokinetic ? [place]-Septal ? Hypokinetic ? [place]-Anterior ? Hypokinetic ? [place]-Lateral ?Hypokinetic ? [place]-Inferior ? Hypokinetic ? [place]-Tip ?Hypokinetic ? Chambers ?Value ?Units (Range) ? [...] 01/23/2014 16:34:37 Images reviewed and interpretation verified [facility] Procedure Note Lee Kincaid MD - 01/23/2014 Procedure: Transthoracic Echocardiogram Patient: ANDREW Mejias (Age): 1955(58) Med Rec#: [id number] Sex: F Site Loc: [facility] Ht / Wt: 158(cm)/93(kg) Pt. Loc: Adult Floor BSA: 2.02 Study Date: 01/23/2014 Pt. Type: Inpatient Tape: Referring: Lee Kincaid ([id number]) Referring: ANNALISA Air Compressor Engineer: Miguel Beverly Diagnosis:CPT Code(s): Echo Full (70667), Spectral Doppler (88963), Color Doppler (64878), Indication(s): Aortic stenosis Rhythm: Sinus HR BP [...] Hypokinetic Mid-Posterolateral Hypokinetic Mid-Inferior Hypokinetic Mid-Inferoseptal Hypokinetic [place]-Septal Hypokinetic [place]-Anterior Hypokinetic [place]-Lateral Hypokinetic [place]-Inferior Hypokinetic [place]-Tip Hypokinetic Chambers Value Units (Range) IVSd 2D [...] 01/23/2014 16:34:37 Images reviewed and interpretation verified [facility] Lee Kincaid MD ECHO [...] RN) documented in this encounter Care Teams Plate Roller Relationship Specialty Start Date End Date Danni Laird APRN [address] [place] [address] PCP - General 01/23/14 11/11/14 documented as of this encounter
--- OUTSIDE RECORDS SUMMARY | 2024-05-02 15:15 | XMS_ITS | Encounter Summary ---
[place] [address] Care Team Providers Care Metalsmith Apprentice Name Role Phone Jerel Sofia Morgan APRN Primary Care Provider [phone] Encounter Details Date Type Department Care Team (Late st Contact Info) Description 11/12/2014 8:10 AM EDT - 11/12/2014 11:59 PM EDT Hospital [place] [phone] CLINIC, DR ABE Burrell, Antelmo Porter MD [address] [place] [address] Discharge Disposition: Home Social History Tobacco Use [...] Laboratory Appointment Lab at [facility] Hematology Oncology [address] [place] [address] 05/12/2024 10:00 AM EDT Office Visit Hematology [place] [address] Markel Borjas MD [facility] [address] [place] [address] 03/01/2025 4:15 PM EDT Office Visit Dermatology at [place] [address] [facility] [place] [address] Marek Bonilla MD [address], [place] [address] documented as of this encounter Procedures Procedure [...] mLs documented in this encounter Care Teams Metalsmith Apprentice Relationship Specialty Start Date End Date Sofia Beltrán APRN [address] [place] [address] PCP - General 11/12/14 03/23/16 documented as of this encounter
--- OUTSIDE RECORDS SUMMARY | 2024-05-02 15:15 | XMS_ITS | Encounter Summary ---
Author Organization [facility] [place] [address] Care Team Providers Care Turnstile Attendant Name Role Phone EitanDanni ANURAG Primary Care Provider [phone] Encounter Details Date Type Department Care Team (Late st Contact Info) Description 01/22/2014 Telephone Cardiology at [address] [phone] Cynthia Arrington LPN Social History Tobacco Use [...] LPN - 01/23/2014 2:39 PM EDT This race and sports book writer did not receive a call back [...] [facility] [address] [place] [address] 05/12/2024 10:00 AM EDT Office Visit Hematology [place] [address] Markel Borjas MD [facility] [place] [address] 03/01/2025 4:15 PM EDT Office Visit Dermatology at [place] [address] [facility] [place] [address] Marek Bonilla MD [address], [place] [address] documented as of this encounter Visit Diagnoses Not on filedocumented in this encounter Care Teams Turnstile Attendant Relationship Specialty Start Date End Date Danni Laird APRN [address] [place] [address] PCP - General 01/23/14 11/11/14 documented as of this encounter
--- OUTSIDE RECORDS SUMMARY | 2024-05-02 15:15 | XMS_ITS | Encounter Summary ---
Author Organization [facility] [place] [address] Care Team Providers Care Quality Compliance Coordinator Name Role Phone Junaid Deborah Shields APRN Primary Care Provider [phone] Encounter Details Date Type Department Care Team (Latest Contact Info) Description 05/19/2016 11:00 AM EDT Clinical [place] [address] Nonrheumatic aortic valve stenosis Social History Tobacco [...] [facility] Hematology Oncology [address] [place] [address] 05/12/2024 10:00 AM EDT Office Visit Hematology [place] [address] Markel Borjas MD [facility] [address] HEMATOLOGY [place] [address] 03/01/2025 4:15 PM EDT Office Visit Dermatology at [place] [address] [facility] [phone] Marek Bonilla MD [address], [place] [address] documented as of this encounter Procedures Procedure [...] (Bezet) 448 ms MUSE SYSTEM Calculated P Mcnary 37 degrees MUSE SYSTEM Calculated R Mcnary 31 degrees MUSE SYSTEM Calculated T Mcnary 25 degrees MUSE SYSTEM INTERPRETATION Normal sinus rhythm Normal ECG No previous ECGs available Confirmed by MD Becca, Deangelo ([id number]) on 05/19/2016 5:23:33 PM MUSE SYSTEM 05/19/2016 11:4 3 AM EDT 05/19/2016 5:23 PM EDT Alirio Esparza MD ECG ORDERABLES [employer] [facility] documented in this encounter Visit Diagnoses Diagnosis Nonrheumatic aortic valve stenosis Aortic valve disorders documented in this encounter Care Teams Quality Compliance Coordinator Relationship Specialty Start Date End Date Deborah Quiroga, HIGH SCHOOL DIRECTOR PCP - General Family Medicine 03/24/16 02/04/23 documented as of this encounter
--- OUTSIDE RECORDS SUMMARY | 2024-05-02 15:15 | XMS_ITS | Encounter Summary ---
[facility] [place] [address] Care Team Providers Care Fast Food Server Name Role Phone JunaidAshley hargrovezac Shields APRN Primary Care Provider [phone] Reason for Visit * Auth/Cert Specialty Diagnoses / Procedures Referred By Crispin t Referred To Contact Diagnoses AVS Procedures CARDIAC CATHETERIZATION Referral ID Status Reason Start Date Expiration Date Visits Re quested Visits Authorized [id number] 1 1 Encounter Details Date Type Department Care Team (Late st Contact Info) Description 06/03/2016 6:32 AM EDT - 06/03/2016 1:10 PM EDT Hospital En[place] [id number] Anjum Oliveros II, MD [facility] [place] [address] Mario Alberto Escobedo MD [facility] [place] [address] Aortic valve stenosis, unspecified etiology; Nonrheumatic aortic [...] by your doctor, do not take any qdmt-unz-[id number] medicinesor herbal preparations without first discussing this with your doctor or pharmacist. There is the possibility of side effects and interactions when these are combined. Follow Up Care Who to call with questions or problems If there are any questions or problems that you think might be related to your cardiac cath or angioplasty, contact the commercial roofer operations and intelligence assistant by calling [facility] at . * Patient Instructions* Felicia Corrigan - 06/03/2016 9:33 AM EDT Cardiology Instructions Call your doctor if: Chest pain, dyspnea, pain or swelling in legs occurs. If you have non-emergent questions between now and the time of your follow up appointments: -During 8am-5pm Wednesday through Wednesday call [phone] to speak with a nurse in the cardiology clinic -All other times call [phone] and ask to speak to the surgical supplies sterilizer operations and intelligence assistant. MEDICATIONS - restart your spironolactone, discontinue [...] Appointments: Primary care provider: Cardiology: Deborah Hahn, MILK RECEIVER [phone] Follow up as planned or as needed. Dr. Esparza [phone] Other follow-up appointment: Hematology - Dr. Mario [...] EDT Laboratory Appointment Lab at [facility] Hematology Oncology [address] [place] [address] 05/12/2024 10:00 AM EDT Office Visit Hematology [place] [address] Markel Borjas MD [facility] [place] [address] 03/01/2025 4:15 PM EDT Office Visit Dermatology at [place] [address] [place] [phone] Marek Bonilla MD [address], [place] [address] documented as of this encounter Procedures Procedure [...] AM EDT) Green Hold Sample in lab. [facility] Blood specimen (specimen) Venous Draw / Unknown 06/03/2016 11:45 AM EDT 06/03/2016 12:12 PM EDT Mario Alberto Escobedo MD CHEMISTRY ORDERABLES [facility] [place] [address] * Methylmalonic acid, serum (06/03/2016 11:45 AM EDT) Methylmalonic Acid (NOVEMBER) 0.21 <=0.40 nmol/mL [facility] Comment: Test Performed by: [address] [address] Hardboard Supervisor: Raymond Chaudhry II, M.D., Ph.D. Blood specimen (specimen) 06/03/2016 11:45 AM EDT 06/03/2016 1:57 PM EDT Narrative Resulting Agency Comment Spec In Lab Mario Alberto Escobedo MD LAB SEND OUT ORDERAB LES Performing Organization Address [facility] Co de Phone Number [facility] [place] [address] * Granulocyte Antibody (06/03/2016 11:45 AM EDT) Granulocyte Ab (NOVEMBER) Negative Not Applicable [facility] Comment: ADDITIONAL INFORMATION Method: Immunofluorescent Assay Performing Laboratory CLIA# [id number] This test was developed and its performance characteristics determined by [facility] in a manner consistent with CLIA requirements. This test has not been cleared or approved by the U.S. Food and Drug Administration. Test Performed by: [place] [address] Hardboard Supervisor: Raymond Chaudhry II, M.D., Ph.D. Blood specimen (specimen) 06/03/2016 11:45 AM EDT 06/03/2016 1:57 PM EDT Narrative Resulting Agency Comment Spec In Lab Mario Alberto Escobedo MD LAB SEND OUT ORDERAB LES Performing Organization Address [facility] Co de Phone Number [facility] [place] [address] * TSH (06/03/2016 11:45 AM EDT) Thyroid Stimulating Hormone 2.18 0.27 - 4.20 mcIU/mL [facility] Blood specimen (specimen) 06/03/2016 11:45 AM EDT 06/03/2016 12:11 PM EDT Narrative Resulting Agency Comment Spec In Lab Mario Alberto Escobedo MD CHEMISTRY ORDERABLES Performing Organization Address [facility]/ZIP Co de Phone Number [facility] [place] [address] * Homocysteine Total, Plasma (06/03/2016 11:45 AM EDT) Homocystine 9 <=15 mcmol/L [facility] Blood specimen (specimen) 06/03/2016 11:45 AM EDT 06/03/2016 12:11 PM EDT Narrative Resulting Agency Comment Spec In Lab Mario Alberto Escobedo MD CHEMISTRY ORDERABLES Performing Organization Address City/[facility]/ZIP Co de Phone Number [facility] [place] [address] * Folate, serum (06/03/2016 11:45 AM EDT) Folate >20.0 4.8 - 24.2 ng/mL [facility] Blood specimen (specimen) 06/03/2016 11:45 AM EDT 06/03/2016 12:04 PM EDT Narrative Resulting Agency Comment Spec In Lab Mario Alberto Escobedo MD CHEMISTRY ORDERABLES Performing Organization Address City/[facility]/ZIP Co de Phone Number [facility] [place] [address] * (ABNORMAL) Sedimentation rate (06/03/2016 11:45 AM EDT) Sedimentation Rate Automated 41(H) 0 - 20 mm/hr [facility] Blood specimen (specimen) 06/03/2016 11:45 AM EDT 06/03/2016 12:04 PM EDT Narrative Resulting Agency Comment Spec In Lab Mario Alberto Escobedo MD HEMATOLOGY ORDERABLE S Performing Organization Address City/[facility]/ZIP Co de Phone Number [facility] [place] [address] * Lactate Dehydrogenase (06/03/2016 11:45 AM EDT) Lactate Dehydrogenase 164 110 - 220 unit/L [facility] Blood specimen (specimen) 06/03/2016 11:45 AM EDT 06/03/2016 12:11 PM EDT Narrative Resulting Agency Comment Spec In Lab Mario Alberto Escobedo MD CHEMISTRY ORDERABLES [facility] [place] [address] * Comprehensive metabolic panel (non-fasting) (06/03/2016 11:45 [...] the following links into your internet browser. [email or web address] Blood specimen (specimen) 06/03/2016 11:45 AM EDT 06/03/2016 12:11 PM EDT Narrative Resulting Agency Comment Spec In Lab Mario Alberto Escobedo MD CHEMISTRY ORDERABLES Performing Organization Address City/State/[facility] Co de Phone Number [facility] [place] [phone] documented in this encounter Visit Diagnoses Diagnosis [...] Hernandez) documented in this encounter Care Teams Fast Food Server Relationship Specialty Start Date End Date Deborah Quiroga, MILK RECEIVER PCP - General Family Medicine 03/24/16 02/04/23 documented as of this encounter
--- OUTSIDE RECORDS SUMMARY | 2024-05-04 14:06 | XMS_ITS | Encounter Summary ---
Author Organization [facility] Address [address] [place] [address] Care Team Providers Care Nutrition Services Associate Name Role Phone Ashley Chavez Primary Care Provider [phone] Encounter Details Date Type Department Care Team (Late st Contact Info) Description 12/17/2021 Lab Requisition [facility] Pathology & Laboratory Medicine - [address] [address] Outr Resulting Lab, Provider Social History Tobacco [...] Lyme Ab Negative Negative 12/18/2021 10:37 EDT [facility] Blood VENOUS BLOOD / Unknown 12/17/2021 13:30 EDT 12/17/2021 21:32 EDT Provider Outr Resulting Lab IMMUNOLOGY A ND SEROLOGY ORDERABLES Performing Organization Address [facility] Co de Phone Number [facility] [address] [place] [address] * (ABNORMAL) ANTI NUCLEAR AB (FRANCISCO), IFA (12/17/2021 13:30 EDT) FRANCISCO Interpretation Positive(A) Negative 12/18/2021 16:06 EDT [facility] Comment: For titers greater [...] Pattern 1 1:1280 Speckled 12/18/2021 16:06 EDT [facility] Blood VENOUS BLOOD / Unknown 12/17/2021 13:30 EDT 12/17/2021 21:32 EDT Narrative [facility] - 12/18/2021 16:06 EDT Results were obtained with the INOVA NOVA Lite HEp-2 FRANCISCO Kit by indirect immunofluorescence. Provider Outr Resulting Lab IMMUNOLOGY A ND SEROLOGY ORDERABLES Performing Organization Address [facility] Co de Phone Number [facility] [address] [place] [address] documented in this encounter Visit Diagnoses Not on filedocumented in this encounter Care Teams Nutrition Services Associate Relationship Specialty Start Date End Date Ashley Chavez ARNP [address] [place] [address] PCP - General 07/11/10 documented as of this encounter
--- OUTSIDE RECORDS SUMMARY | 2024-05-04 14:06 | XMS_ITS | Clinical Summary ---
Author Organization [facility] Address [address] [place] [address] Care Team Providers Care Meter Setter Name Role Phone Ashley Chavez Primary Care Provider [phone] Encounters Date Type Department Care Team Description 03/22/2024 Lab Requisition [facility] Pathology & Laboratory [address] [address] Consuelo Guerrero, DO Diaphragmatic hernia without obstruction or gangrene; Anemia, unspecified 03/21/2024 Lab Requisition [facility] Pathology & Laboratory [address] [address] Consuelo Guerrero, DO Encounter for other general examination 03/21/2024 Lab Requisition [facility] Pathology & Laboratory [address] [address] Outr Resulting Lab, Provider from Last 3 [...] 13:00 EDT) LORY Negative 03/21/2024 22:31 EDT [facility] B[facility]OD BANK Blood VENOUS BLOOD / Unknown 03/21/2024 13:00 EDT 03/21/2024 21:51 EDT Consuelo Guerrero DO BLOOD BANK TESTS Performing Organization Address [facility] Co de Phone Number [facility] BANK [address] [place] [address] * HAPTOGLOBIN (03/21/2024 13:00 EDT) Haptoglobin 183 32 - 197 mg/dL 03/22/2024 10:25 EDT [facility] Blood VENOUS BLOOD / Unknown 03/21/2024 13:00 EDT 03/21/2024 21:50 EDT Provider Outr Resulting Lab CHEMISTRY & BLOOD GAS ORDERABLES Performing Organization Address [facility]/ZIP Co de Phone Number [facility] [address] [place], [place] [address] * SURGICAL PATHOLOGY (03/21/2024 11:35 EDT) Note to Patient The following pathology results have been interpreted by your pathologist and may be available to you before your health provider has had the opportunity to review them. Please allow time for your provider to receive these results and explore management options, if applicable. 03/24/2024 10:36 EDT [facility] Final Diagnosis A. JEJUNUM, [...] 03/22/2024 9:36 03/24/2024 10:36 EDT [facility] Resident/Estuardo w: Luis Felipe Bragg DO 03/24/2024 10:36 EDT [facility] Performing Lab [facility] 10:36 EDT [facility] Scanned Images 03/24/2024 10:36 EDT [facility] Tissue POLYP OF COLON [...] 8:19 EDT Consuelo Guerrero DO PATHOLOGY ORDERABLES [facility] [address] [place] [address] from Last 3 Months Care Teams Meter Setter Relationship Specialty Start Date End Date Ashley Chavez ARNP [address] [place] [address] PCP - General 07/11/10
--- OUTSIDE RECORDS SUMMARY | 2024-05-04 14:06 | XMS_ITS | Encounter Summary ---
Author Organization [facility] Address [address] [place] [address] Care Team Providers Care Forestry Adviser Name Role Phone Ashley Chavez Primary Care Provider [phone] Encounter Details Date Type Department Care Team (Late st Contact Info) Description 03/22/2024 Lab Requisition [facility] Pathology & Laboratory Medicine - [address] [address] Consuelo Guerrero, DO [address] [place], [place] [address] Diaphragmatic hernia without obstruction or gangrene; Anemia, [...] explore management options, if applicable. 03/24/2024 10:36 [facility] Final Diagnosis A. [...] Deeper sections x3 examined. 03/24/2024 10:36 [facility] Attestation There was significant resident/fellow involvement in the diagnostic evaluation of this case. By the signature below, the attending physician certifies that they have personally conducted a gross and/or microscopic examination of the described specimens and rendered or confirmed the above diagnosis. 03/24/2024 10:36 [facility] at [address] Clinical History Anemia, hiatal hernia, 38 cm aguayo diverticulosis 03/24/2024 10:36 [facility] Gross Description A. [...] Luis Torres 03/22/2024 9:36 03/24/2024 10:36 EDT [facility] Resident/Estuardo w: Luis Felipe Bragg DO 03/24/2024 10:36 T [facility] Performing Lab [facility] 10:36 T [facility] Scanned Images 03/24/2024 10:36 T [facility] Tissue POLYP OF COLON [...] 8:19 EDT Consuelo Guerrero DO PATHOLOGY ORDERABLES [facility] [address] [place] [address] documented in this encounter Visit Diagnoses Diagnosis Diaphragmatic hernia without obstruction or gangrene Diaphragmatic hernia without mention of obstruction or gangrene Anemia, unspecified documented in this encounter Care Teams Forestry Adviser Relationship Specialty Start Date End Date Ashley Chavez ARNP [address] [place] [address] PCP - General 07/11/10 documented as of this encounter
--- OUTSIDE RECORDS SUMMARY | 2024-05-04 14:06 | XMS_ITS | Encounter Summary ---
Author Organization [facility] Address [address] [place] [address] Care Team Providers Care Creative Producer Name Role Phone Ashley Chavez Primary Care Provider [phone] Encounter Details Date Type Department Care Team (Late st Contact Info) Description 10/30/2022 Lab Requisition [facility] Pathology & Laboratory Medicine - [address] [address] Outr Resulting Lab, Provider Social History Tobacco [...] Lite dsDNA SC DOMO assay on the Livevol DSX. Blood VENOUS BLOOD / Unknown 10/29/2022 14:00 EDT 10/30/2022 19:27 EDT Provider Outr Resulting Lab IMMUNOLOGY A ND SEROLOGY ORDERABLES Performing Organization Address [facility] de Phone Number [facility] [address] [place] [address] * SM (MORENO) ANTIBODY (10/29/2022 14:00 EDT) [facility] SM ([place]) Antibody 18.5 <20.0 Units 11/03/2022 [...] SEROLOGY ORDERABLES Performing Organization Address [facility] de Phone Number [facility] [address] [place] [address] documented in this encounter Visit Diagnoses Not on filedocumented in this encounter Care Teams Creative Producer Relationship Specialty Start Date End Date Ashley Chavez ARNP [address] [place] [address] PCP - General 07/11/10 documented as of this encounter
--- OUTSIDE RECORDS SUMMARY | 2024-05-04 14:06 | XMS_ITS | Encounter Summary ---
Author Organization [facility] Address [address] [place] [address] Care Team Providers Care Wincher Name Role Phone Scott, Ashley WILLIAM Primary Care Provider [phone] Encounter Details Date Type Department Care Team (Late st Contact Info) Description 03/21/2024 Lab Requisition [facility] Pathology & Laboratory Medicine - [address] [address] Consuelo Guerrero, DO [address] [place], [place] [address] Encounter for other general examination Social History [...] 13:00 EDT) LORY Negative 03/21/2024 22:31 EDT [facility] Blood VENOUS BLOOD / Unknown 03/21/2024 13:00 EDT 03/21/2024 21:51 EDT Consuelo Guerrero DO BLOOD BANK TESTS [facility] [address] [place] [address] documented in this encounter Visit Diagnoses Diagnosis Encounter for other general examination documented in this encounter Care Teams Wincher Relationship Specialty Start Date End Date Ashley Chavez ARNP [address] [place] [address] PCP - General 07/11/10 documented as of this encounter
--- OUTSIDE RECORDS SUMMARY | 2024-05-04 14:06 | XMS_ITS | Encounter Summary ---
Author Organization [facility] Address [address] [place] [address] Care Team Providers Care Residential Interior Designer Name Role Phone Unavailable Primary Care Provider Unavailabl e Encounter Details Date Type Department Care Team (Late st Contact Info) Description 06/29/2007 Results Only [facility] - Maple conversion [address] [place] [address] Sánchez Acevedo MD [address] [place] [address] Social History Tobacco Use Types Packs/Day Years [...] ? 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 Accession #: ? [id number] ? : ? 1955 (Age: 51) ??F [...] covered by a smooth white serosa. ??Three group sales representative sections of the gallbladder are submitted in one cassette. ??(Sriram Elias/[facility] End of Report [facility] 06/29/2007 06/29/2007 21: 23 EST Sánchez Acevedo MD PATHOLOGY ORDERABLE [facility] [address] [place] [address] documented in this encounter Visit Diagnoses Not on filedocumented in this encounter
--- OUTSIDE RECORDS SUMMARY | 2024-05-04 14:06 | XMS_ITS | Encounter Summary ---
Author Organization [facility] Address [address] [place] [address] Care Team Providers Care Blade Worker Name Role Phone Ashley Chavez Primary Care Provider [phone] Encounter Details Date Type Department Care Team (Late st Contact Info) Description 01/07/2023 Lab Requisition [facility] Pathology & Laboratory Medicine - [address] [id number] Outr Resulting Lab, Provider Social History Tobacco [...] 56.2 55.8 - 66.1 % 01/08/2023 11:28 [facility] Albumin g/dL 3.9 3.6 - 5.2 g/dL 01/08/2023 11:28 [facility] Alpha-1 % 5.1(H) 2.9 - 4.9 % 01/08/2023 11:28 [facility] Alpha-1 g/dL 0.40 0.15 - 0.40 g/dL 01/08/2023 11:28 [facility] Alpha-2 % 7.0(L) 7.1 - 11.8 % 01/08/2023 11:28 [facility] Alpha-2 g/dL 0.50 0.50 - 1.00 g/dL 01/08/2023 11:28 [facility] Beta % 12.7 8.4 - 13.1 % 01/08/2023 11:28 [facility] Beta g/dL 0.90 0.60 - 1.20 g/dL 01/08/2023 11:28 [facility] Gamma % 19.0(H) 11.1 - 18.8 % 01/08/2023 11:28 [facility] Gamma g/dL 1.30 0.60 - 1.60 g/dL 01/08/2023 11:28 [facility] SPEP Comment No apparent monoclonal protein seen on serum electrophoresis 01/08/2023 11:28 [facility] Comment:See scanned/suppleme ntary report. Total Protein 6.9 6.3 - 8.2 g/dL 01/08/2023 11:28 [facility] Blood VENOUS BLOOD / Unknown 01/06/2023 14:40 EDT 01/07/2023 17:37 EDT Provider Outr Resulting Lab CHEMISTRY & BLOOD GAS ORDERABLES Performing Organization Address City/State/[facility] Co de Phone Number [facility] [address] [place] [address] * PROTEIN, TOTAL (01/06/2023 14:40 EDT) Blood VENOUS BLOOD / Unknown 01/06/2023 14:40 EDT 01/07/2023 17:37 EDT Provider Outr Resulting Lab CHEMISTRY & BLOOD GAS ORDERABLES Performing Organization Address [facility] Co de Phone Number [facility] [address] [place] [address] * (ABNORMAL) EXTRACTABLE NUCLEAR ANTIGEN PANEL (01/06/2023 14:40 EDT) SSA Antibody 1.3 <20.0 Units 01/08/2023 15:42 EDT [facility] Comment: ? Negative: [...] 1.5 <20.0 Units 01/08/2023 15:42 EDT [facility] Comment: ? Negative: [...] 15.3 <20.0 Units 01/08/2023 15:42 EDT [facility] Comment: ? Negative: <20.0 Units ? Weak Positive: 20.0 - 39.9 Units ? Moderate Positive: 40.0 - 80.0 Units ? Strong Positive: >80.0 Units Results were obtained with the byydVA QUANTA Lite Sm DOMO. ??Sm values obtained with different manufacturers' assay methods may not be used interchangeably. ??The magnitude of the reported IgG levels cannot be correlated to an endpoint titer. ASSISTANT BRANCH OPERATIONS MANAGER Antibody 149.1(H) <20.0 Units 01/08/2023 15:42 EDT [facility] Comment: ? Negative: <20.0 Units ? Weak Positive: 20.0 - 39.9 Units ? Moderate Positive: 40.0 - 80.0 Units ? Strong Positive: >80.0 Units Results were obtained with the Startupsva Quanta Lite ASSISTANT BRANCH OPERATIONS MANAGER DOMO. ASSISTANT BRANCH OPERATIONS MANAGER values obtained with different mental health director's assay methods may not be used interchangeaby. ??The magnitude of the reported IgG levels cannot be be correlated to an endpoint titer. A positive result in the Quanta Lite ASSISTANT BRANCH OPERATIONS MANAGER DOMO indicates the presence of antibodies reactive with the ASSISTANT BRANCH OPERATIONS MANAGER/Sm complex but cannot distinguish between anti-Sm and anti-ASSISTANT BRANCH OPERATIONS MANAGER activity. Blood VENOUS BLOOD / Unknown 01/06/2023 14:40 EDT 01/07/2023 17:37 EDT Provider Outr Resulting Lab IMMUNOLOGY A ND SEROLOGY ORDERABLES [facility] [address] [place] [address] * (ABNORMAL) ANTI NUCLEAR AB (FRANCISCO), IFA (01/06/2023 14:40 EDT) FRANCISCO Interpretation Positive(A) Negative 01/08/2023 15:22 EDT [facility] Comment: Result is [...] 1 1:5120 Speckled 01/08/2023 15:22 EDT [facility] Blood VENOUS BLOOD / Unknown 01/06/2023 14:40 EDT 01/07/2023 17:37 EDT Narrative [facility] - 01/08/2023 15:22 EDT Results were obtained with the INOVA NOVA Lite HEp-2 FRANCISCO Kit by indirect immunofluorescence. Provider Outr Resulting Lab IMMUNOLOGY A ND SEROLOGY ORDERABLES Performing Organization Address City/State/[facility] Co de Phone Number [facility] [address] [place] [address] documented in this encounter Visit Diagnoses Not on filedocumented in this encounter Care Teams Blade Worker Relationship Specialty Start Date End Date Ashley Chavez ARNP [address] [place] [address] PCP - General 07/11/10 documented as of this encounter
--- OUTSIDE RECORDS SUMMARY | 2024-05-04 14:06 | XMS_ITS | Encounter Summary ---
Author Organization [facility] Address [address] [place] [address] Care Team Providers Care Metals Sales Representative Name Role Phone Scott Ashley WILLIAM Primary Care Provider [phone] Encounter Details Date Type Department Care Team (Late st Contact Info) Description 05/12/2019 Results Only [facility] [phone] Nadira Gregorio MD [address] [place] [phone] Social History Tobacco Use Types Packs/Day [...] ? 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 Accession #: ? [id number] ? : ? 1955 (Age: 63) ??F ? Collect Date: ? 05/12/2019 ? Location: ? [facility] ? Receive Date: ? 05/12/2019 ? Provider: NADIRA GREGORIO MD Copy to: WINTER HANKINS POWER NUT RUNNER OPERATOR ? Final Pathologic Diagnosis: COLON, CECUM, [...] 6:08 PM End of Report [facility] 05/12/2019 16:0 3 EDT 05/12/2019 16:03 EDT Nadira Gregorio MD PATHOLOGY ORDERABLES [facility] [address] [place] [address] documented in this encounter Visit Diagnoses Not on filedocumented in this encounter Care Teams Metals Sales Representative Relationship Specialty Start Date End Date Ashley Chavez ARNP [address] [place] [address] PCP - General 07/11/10 documented as of this encounter
--- OUTSIDE RECORDS SUMMARY | 2024-05-04 14:06 | XMS_ITS | Referral Summary ---
Author Organization [facility] Address [address] [place] [address] Care Team Providers Care Classified Advertising Clerk Name Role Phone Ashley Chavez Primary Care Provider [phone] Encounters Date Type Department Care Team Description 03/22/2024 Lab Requisition [facility] Pathology & Laboratory [address] [address] Consuelo Guerrero, DO Diaphragmatic hernia without obstruction or gangrene; Anemia, unspecified 03/21/2024 Lab Requisition [facility] Pathology & Laboratory [address] [address] Consuelo Guerrero DO Encounter for other general examination 03/21/2024 Lab Requisition [facility] Pathology & Laboratory [address] [address] Outr Resulting Lab, Provider from Last 3 [...] 13:00 EDT) LORY Negative 03/21/2024 22:31 EDT [facility] Blood VENOUS BLOOD / Unknown 03/21/2024 13:00 EDT 03/21/2024 21:51 EDT Consuelo Guerrero DO BLOOD BANK TESTS Performing Organization Address [facility] Co de Phone Number [facility] [address] [place] [address] * HAPTOGLOBIN (03/21/2024 13:00 EDT) Haptoglobin 183 32 - 197 mg/dL 03/22/2024 10:25 EDT [facility] Blood VENOUS BLOOD / Unknown 03/21/2024 13:00 EDT 03/21/2024 21:50 EDT Provider Outr Resulting Lab CHEMISTRY & BLOOD GAS ORDERABLES Performing Organization Address [facility] Co de Phone Number [facility] [address] [place] [address] * SURGICAL PATHOLOGY (03/21/2024 11:35 EDT) Note to Patient The following pathology results have been interpreted by your pathologist and may be available to you before your health provider has had the opportunity to review them. Please allow time for your provider to receive these results and explore management options, if applicable. 03/24/2024 10:36 EDT [facility] Final Diagnosis A. JEJUNUM, [...] Luis Torres 03/22/2024 9:36 03/24/2024 10:36 EDT [facility] Resident/Estuardo w: Luis Felipe Bragg DO 03/24/2024 10:36 EDT [facility] Performing Lab [facility] 10:36 EDT [facility] Scanned Images 03/24/2024 10:36 EDT [facility] Tissue POLYP OF COLON [...] 8:19 EDT Consuelo Guerrero DO PATHOLOGY ORDERABLES [facility] [address] [place] [address] from Last 3 Months Care Teams Classified Advertising Clerk Relationship Specialty Start Date End Date Ashley Chavez ARNP [address] [place] [address] PCP - General 07/11/10
--- OUTSIDE RECORDS SUMMARY | 2024-05-04 14:06 | XMS_ITS | Encounter Summary ---
Author Organization [facility] Address [address] [place] [address] Care Team Providers Care Tram Driver Name Role Phone Unavailable Primary Care Provider Unavailabl e Encounter Details Date Type Department Care Team (Late st Contact Info) Description 04/20/2005 Results Only [facility] [address] [place] [address] Ziggy Valiente MD [address] [place] [id number] Social History Tobacco Use Types Packs/Day Years [...] ? 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 Accession #: ? [id number] ? : ? 1955 (Age: 49) ??F [...] is entirely submitted in one cassette. ??(Arabella Santos)/[facility] End of Report [facility] 04/20/2005 04/21/2005 15: 04 EDT Ziggy Valiente MD PATHOLOGY ORDERABLES [facility] [address] [place] [address] documented in this encounter Visit Diagnoses Not on filedocumented in this encounter
--- OUTSIDE RECORDS SUMMARY | 2024-05-04 14:06 | XMS_ITS | Encounter Summary ---
Author Organization [facility] Address [address] [place] [address] Care Team Providers Care Hairpiece Stylist Name Role Phone Ashley Chavez Primary Care Provider [phone] Encounter Details Date Type Department Care Team (Latest Contact Info) Description 05/12/2019 13:18 EDT - 05/12/2019 23:59 EDT Hospital Encounter [address] [address] Unknown, Provider, Discharge Disposition: Home or Self [...] on filedocumented in this encounter Care Teams Hairpiece Stylist Relationship Specialty Start Date End Date Ashley Chavez ARNP [address] [place] [address] PCP - General 07/11/10 documented as of this encounter
--- OUTSIDE RECORDS SUMMARY | 2024-05-04 14:06 | XMS_ITS | Encounter Summary ---
Author Organization [facility] Address [address] [place] [address] Care Team Providers Care Spectrographic Analyst Name Role Phone Ashley Chavez Primary Care Provider [phone] Encounter Details Date Type Department Care Team (Late st Contact Info) Description 06/23/2016 Results Only [facility] [phone] Matthew Acevedo, DO [address] [facility] [address] [place] [address] Social History Tobacco Use Types Packs/Day [...] ? 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 Accession #: ? [id number] : ? 1955 (Age: 60) ??F ?Collect [...] ??400 ?? KARYOTYPE: 46,XX[25] End of Report [facility] 06/23/2016 06/24/2016 Matthew Acevedo DO PATHOLOGY ORDER JODIE [facility] [address] [place] [address] * FLOW CYTOMETRY (06/23/2016 0:00 EST) Pathology Report: FLOW CYTOMETRY REPORT Reports generated via electronic interface contain original data; however they are lacking the format of the original report. Caution should be taken when reading/interpreting unformatted reports. Name: ? 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 Accession #: ? [id number] : ? 1955 (Age: 60) ??F ?Collect Date: ? 06/23/2016 00:00 Location: ? [facility] ? Receive Date: ? 06/24/2016 08:00 Provider: ?MATTHEW ACEVEDO DO Copy to: ?WINTER HANKINS PLANT OPERATIONS COORDINATOR MARIO ALBERTO RAMOS MD ? FINAL IMMUNOPHENOTYPIC INTERPRETATION: ? Bone marrow, flow cytometric analysis: -No immunophenotypic evidence of a clonal cell population. ??See comment. ? COMMENT: The results of flow cytometry show no immunophenotypic evidence of involvement by a clonal lymphoproliferative or myeloproliferative disorder. ??Correlation of these findings with morphologic and clinical data is essential. ??Please refer to pathology report number [id number] for morphologic details. ? Document reviewed and [...] the Department of Pathology and Laboratory Medicine, [place], [place] ??It has not been cleared or [...] clinical laboratory testing. End of Report ?? [facility] 06/23/2016 06/24/2016 8:0 0 EST Matthew Acevedo DO PATHOLOGY ORDER JODIE [facility] [address] [place] [address] * BONE MARROW/HEMPATH CONSULT (06/23/2016 0:00 EST) Pathology Report: BONE MARROW REPORT Reports generated via electronic interface contain original data; however they are lacking the format of the original report. Caution should be taken when reading/interpreting unformatted reports. Name: ? 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 Accession #: ? [id number] : ? 1955 (Age: 60) ??F ?Collect Date: ? 06/23/2016 Location: ? [facility] ? Receive Date: ? 06/24/2016 Provider: ? MATTHEW AECVEDO DO Copy to: ?WINTER HANKINS PLANT OPERATIONS COORDINATOR MARIO ALBERTO RAMOS MD ? DIAGNOSIS: [...] #1: Aggregate biopsy length: 8 mm with gusset edger trabeculae of lamellar bone, cellular bone marrow, [...] SEE ABOVE DISCUSSION Lambda (polyclonal, Dako) ??(B1): [place] (polyclonal, Dako) ??(B1): Biopsy (decalcified) #2: Aggregate biopsy length: 8 mm with gusset edger trabeculae of lamellar bone, cellular bone marrow, [...] (M115, Leica) ??(B2): Lambda (polyclonal, Dako) ??(B2): [place] (polyclonal, Dako) ??(B2): NOTE: ??One or more [...] performance characteristics have been determined by The . ??The positive and negative controls worked appropriately. [...] ? 1% Blasts ?1% Special Studies Cytogenetics ([id number]): Pending. Flow Cytometry ([id number]): No immunophenotypic evidence of a clonal cell population. ? End of Report [facility] 06/23/2016 06/24/2016 Matthew Acevedo DO PATHOLOGY ORDER JODIE [facility] [address] [place] [address] documented in this encounter Visit Diagnoses Not on filedocumented in this encounter Care Teams Spectrographic Analyst Relationship Specialty Start Date End Date Ashley Chavez ARNP [address] [place] [address] PCP - General 07/11/10 documented as of this encounter
--- OUTSIDE RECORDS SUMMARY | 2024-05-04 14:06 | XMS_ITS | Encounter Summary ---
Author Organization [facility] Address [address] [place] [address] Care Team Providers Care Needle Grinder Name Role Phone Scott, Ashley WILLIAM Primary Care Provider [phone] Encounter Details Date Type Department Care Team (Late st Contact Info) Description 12/23/2016 Results Only [facility] [phone] Deborah Quiroga, DOOR MANAGER [address] [place] [phone] Social History Tobacco Use Types Packs/Day Years [...] ? 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 Accession #: ? [id number] ? : ? 1955 (Age: 61) ??F ?Collect Date: ? 12/23/2016 ? Location: ? [facility] ? Receive Date: ? 12/25/2016 ? Provider: DEBORAH QUIROGA SLITTER OPERATOR Copy to: ? Final Report SPECIMEN ADEQUACY ? Satisfactory for Evaluation - transformation zone component present GENERAL CATEGORIZATION ? Negative for Intraepithelial Lesion or Malignancy ?? Last Menstrual Period: years Specimen/Source: ??Pap Test, Cervix, ThinPrep Imaging System with manual evaluation Document reviewed and electronically signed by: ? Monica Cason [facility](ASCP) ? Report ??Date: 01/06/2017 09:11 HPV with Pap Test ? Date Ordered: ? 01/06/2017 ? Status: ?? Signed Out ?Date Complete: ? 01/07/2017 ? By: ??System Interface ? Date Reported: ? 01/07/2017 ? Interpretation RESULT: Negative for HPV. No E6 or E7 mRNA is detected from HPV types 16,18,31,33,35, 39,45,51,52,56,58, 59,66, and 68 by television announcer mediated amplification. Comments Document reviewed and electronically signed by: ? System Interface ? Report date: 01/07/2017 By the signature above, the attending physician certifies that he/she has personally conducted a gross and/or microscopic examination of the described specimens and rendered or confirmed the above diagnosis. End of Report [facility] 12/23/2016 12/25/2016 Deborah Quiroga DOOR MANAGER PATHOLOGY ORDERABLES [facility] [address] [place] [address] documented in this encounter Visit Diagnoses Not on filedocumented in this encounter Care Teams Needle Grinder Relationship Specialty Start Date End Date Ashley Chavez ARNP [address] [place] [address] PCP - General 07/11/10 documented as of this encounter
--- OUTSIDE RECORDS SUMMARY | 2024-05-04 14:06 | XMS_ITS | Encounter Summary ---
Author Organization [facility] Address [address] [place] [address] Care Team Providers Care Family Consumer Science Teacher Name Role Phone Scott Ashley WILLIAM Primary Care Provider [phone] Encounter Details Date Type Department Care Team (Late st Contact Info) Description 11/10/2013 Results Only [facility] [phone] Jeni Laird, CHIEF CRNA [address] [place], [place] [id number] Social History Tobacco Use Types Packs/Day Years [...] ? 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 Accession #: ? [id number] : ? 1955 (Age: 58) ??F ?Collect Date: ? 11/10/2013 Location: ? [facility] ? Receive Date: ? 11/14/2013 Provider: ?JENI LAIRD CHIEF CRNA Copy to: ? Specimen/Source: ?Pap Test, Endocervix, [...] [facility] 11/10/2013 11/14/2013 Jeni Laird CHIEF CRNA PATHOLOGY ORDERAB LES Performing Organization Address City/State/[facility] Co de Phone Number PAUL ARELLANO [address] [place] [address] documented in this encounter Visit Diagnoses Not on filedocumented in this encounter Care Teams Family Consumer Science Teacher Relationship Specialty Start Date End Date Ashley Chavez ARNP [address] [place] [address] PCP - General 07/11/10 documented as of this encounter
--- OUTSIDE RECORDS SUMMARY | 2024-05-04 14:06 | XMS_ITS | Encounter Summary ---
Author Organization [facility] Address [address] [place] [address] Care Team Providers Care Sorority Mother Name Role Phone Ashley Chavez Primary Care Provider [phone] Encounter Details Date Type Department Care Team (Late st Contact Info) Description 05/12/2022 Lab Requisition [facility] Pathology & Laboratory Medicine - [address] [address] Outr Resulting Lab, Provider Social History Tobacco [...] 14:32 EDT) Hold Hold 05/12/2022 22:46 EDT [facility] Blood VENOUS BLOOD / Unknown 05/12/2022 14:32 EDT 05/12/2022 21:40 EDT Provider Outr Resulting Lab LAB INFO SER VICE AND SUPPORT & PHONE RESULT Performing Organization Address [facility]/ZIP Co de Phone Number [facility] [address] [place] [address] * (ABNORMAL) HOMOCYSTEINE (05/12/2022 14:32 EDT) Homocysteine 14.7(H) 5.0 - 13.9 umol/L 05/13/2022 9:05 EDT [facility] Comment:Results may be false ly elevated if sample is not collected on ice or is not removed from cells within 1 hour of collection. Blood VENOUS BLOOD / Unknown 05/12/2022 14:32 EDT 05/12/2022 21:40 EDT Narrative [facility] - 05/13/2022 9:05 EDT [...] ORDERABLES Performing Organization Address [facility] Co de Phone Number [facility] [address] [place] [address] * HAPTOGLOBIN (05/12/2022 14:32 EDT) Pathologist [facility] Haptoglobin 138 32 - 197 mg/dL 05/13/2022 9:55 EDT [facility] Blood VENOUS BLOOD / Unknown 05/12/2022 14:32 EDT 05/12/2022 21:36 EDT Provider Outr Resulting Lab CHEMISTRY & BLOOD GAS ORDERABLES Performing Organization Address [facility] Co de Phone Number [facility] [address] [place] [address] * (ABNORMAL) ANTI NUCLEAR AB (FRANCISCO), IFA (05/12/2022 14:32 EDT) FRANCISCO Interpretation Positive(A) Negative 05/13/2022 14:44 EDT [facility] Comment: Result is equal to or greater than 1:5120. For titers greater than or equal to 1:160 (except the centromere, nucleolar, and dense fine speckled patterns) it is recommended that specific, follow-up autoantibody testing (such as for dsDNA and Extractable Nuclear Antigens) be performed on all diffuse and/or speckled patterns. FRANCISCO Titer and Pattern 1 1:5120 Speckled 05/13/2022 14:44 EDT [facility] Blood VENOUS BLOOD / Unknown 05/12/2022 14:32 EDT 05/12/2022 21:36 EDT Narrative [facility] - 05/13/2022 14:44 EDT Results were obtained with the INOVA NOVA Lite HEp-2 FRANCISCO Kit by indirect immunofluorescence. Provider Outr Resulting Lab IMMUNOLOGY A ND SEROLOGY ORDERABLES [facility] [address] [place] [address] documented in this encounter Visit Diagnoses Not on filedocumented in this encounter Care Teams Sorority Mother Relationship Specialty Start Date End Date Ashley Chavez ARNP [address] [place] [address] PCP - General 07/11/10 documented as of this encounter
--- OUTSIDE RECORDS SUMMARY | 2024-05-04 14:06 | XMS_ITS | Encounter Summary ---
Author Organization [facility] Address [address] [place] [address] Care Team Providers Care Handicapped Teacher Name Role Phone Unavailable Primary Care Provider Unavailabl e Encounter Details Date Type Department Care Team (Late st Contact Info) Description 07/08/2010 Results Only [facility] Non-Invasive Cardiology - [facility] [address] [place] [address] Ashley Chavez, WILLIAM [address] [place] [address] Social History Tobacco Use Types Packs/Day Years [...] ? 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 Accession #: ? [id number] ? : ? 1955 (Age: 54) ??F [...] Ashley THOMAS PATHOLOGY ORDERABLES [facility] [address] [place] [address] documented in this encounter Visit Diagnoses Not on filedocumented in this encounter
--- OUTSIDE RECORDS SUMMARY | 2024-05-04 14:06 | XMS_ITS | Encounter Summary ---
Author Organization [facility] Address [address] [place] [address] Care Team Providers Care White Spooler Name Role Phone Unavailable Primary Care Provider Unavailabl e Encounter Details Date Type Department Care Team (Late st Contact Info) Description 03/24/2007 11:06 EDT - 03/24/2007 11:59 EDT Hospital Encounter [facility] - [facility] [address] [place] [address] Ashley Chavez ARNP [address] [place] [address] Discharge Disposition: Home or Self Care Social [...]
--- OUTSIDE RECORDS SUMMARY | 2024-05-04 14:06 | XMS_ITS | Encounter Summary ---
Author Organization [facility] Address [address] [place] [address] Care Team Providers Care Remelt Pan Tank Operator Name Role Phone Ashley Chavez Primary Care Provider [phone] Encounter Details Date Type Department Care Team (Late st Contact Info) Description 04/29/2022 Lab Requisition [facility] Pathology & Laboratory Medicine - [address] [address] Outr Resulting Lab, Provider Social History Tobacco [...] Antibody 1.6 <20.0 Units 04/30/2022 12:23 EDT [facility] Comment: ? Negative: [...] SEROLOGY ORDERABLES Performing Organization Address [facility] de Phone Number [facility] [address] [place] [address] * SSA ANTIBODIES BY DOMO (04/29/2022 7:51 EDT) SSA Antibody 1.5 <20.0 Units 04/30/2022 12:22 EDT [facility] Comment: ? Negative: [...] ND SEROLOGY ORDERABLES Performing Organization Address [facility] de Phone Number [facility] [address] [place] [address] documented in this encounter Visit Diagnoses Not on filedocumented in this encounter Care Teams Remelt Pan Tank Operator Relationship Specialty Start Date End Date Ashley Chavez ARNP [address] [place] [address] PCP - General 07/11/10 documented as of this encounter
--- OUTSIDE RECORDS SUMMARY | 2024-05-04 14:06 | XMS_ITS | Encounter Summary ---
Author Organization [facility] Address [address] [place] [address] Care Team Providers Care Electric Engine Mechanic Name Role Phone Ashley Chavez Primary Care Provider [phone] Encounter Details Date Type Department Care Team (Late st Contact Info) Description 03/21/2024 Lab Requisition [facility] Pathology & Laboratory Medicine - [address] [address] Outr Resulting Lab, Provider Social History Tobacco [...] 10:25 EDT [facility] Blood VENOUS BLOOD / Unknown 03/21/2024 13:00 EDT 03/21/2024 21:50 EDT Provider Outr Resulting Lab CHEMISTRY & BLOOD GAS ORDERABLES [facility] [address] [place] [address] documented in this encounter Visit Diagnoses Not on filedocumented in this encounter Care Teams Electric Engine Mechanic Relationship Specialty Start Date End Date Ashley Chavez ARNP [address] [place] [address] PCP - General 07/11/10 documented as of this encounter
--- OUTSIDE RECORDS SUMMARY | 2024-05-04 14:06 | XMS_ITS | Encounter Summary ---
Author Organization [facility] Address [address] [place] [address] Care Team Providers Care Maintenance Assistant Name Role Phone Unavailable Primary Care Provider Unavailabl e Encounter Details Date Type Department Care Team (Late st Contact Info) Description 07/08/2010 10:55 EST - 07/08/2010 10:56 EST Hospital Encounter [facility] - Other [address] [place] [address] Ashley Chavez, WILLIAM [address] [place] [address] Discharge Disposition: Home or Self Care Social [...]
--- OUTSIDE RECORDS SUMMARY | 2024-05-04 14:06 | XMS_ITS | Encounter Summary ---
Author Organization [facility] Address [address] [place] [address] Care Team Providers Care Vacuum Filter Operator Name Role Phone Unavailable Primary Care Provider Unavailabl e Encounter Details Date Type Department Care Team (Late st Contact Info) Description 03/24/2007 Results Only [facility] Non-Invasive Cardiology - [facility] [address] [place], [place] [address] Ashley Chavez ARNP [address] [place] [address] Social History Tobacco Use Types Packs/Day Years [...] ? 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 Accession #: ? [id number] : ? 1955 (Age: 51) ??F ?Collect Date: ? 03/24/2007 Location: ? [facility] ? Receive Date: ? 03/28/2007 Provider: ?ASHLEY THOMAS Copy to: ? Specimen/Source: ?ThinPrep Pap Test, Endocervix, processed on [employer] ThinPrep Imaging System, with manual evaluation Last [...] Ashley THOMAS PATHOLOGY ORDERABLES PAUL ARELLANO [address] [place] [address] documented in this encounter Visit Diagnoses Not on filedocumented in this encounter
[2024-05-04 14:07] VITALS: BP 118/65; PULSE 72; O2SAT 96
--- OUTSIDE RECORDS SUMMARY | 2024-05-04 14:07 | XMS_ITS | Encounter Summary ---
Author Organization [facility] [place] [address] Care Team Providers Care Agency Development Manager Name Role Phone Magdalena Acosta MD [facility] Oncology [address] [place] [address] 05/12/2024 10:00 AM EDT Office Visit [place] [address] Markel Borjas MD [facility] [address] HEMATOLOGY [place] [address] 03/01/2025 4:15 PM EDT Office Visit Dermatology at [place] [address] [place] [address] Marek Bonilla MD [address] [place] [address] documented as of this encounter Visit Diagnoses Not on filedocumented in this encounter Care Teams Agency Development Manager Relationship Specialty Start Date End Date Magdalena Acosta MD [address] [place] [address] PCP - General Family Medicine 02/05/23 documented as of this encounter
--- OUTSIDE RECORDS SUMMARY | 2024-05-04 14:07 | XMS_ITS | Encounter Summary ---
[facility] [place] [address] Care Team Providers Care Citrix Systems Administrator Name Role Phone Magdalena Acosta MD Primary Care Provider [phone] Encounter Details Date Type Department Care Team [...] [facility] On[facility] [address] [place] [address] 05/12/2024 10:00 AM EDT Office Visit Hematology [place] [address] Markel Borjas MD [facility] [address] HEMATOLOGY [place] [address] 03/01/2025 4:15 PM EDT Office Visit Dermatology at [place] [address] [place] [address] Marek Bonilla MD [address] [place] [address] documented as of this encounter Visit Diagnoses Not on filedocumented in this encounter Care Teams Citrix Systems Administrator Relationship Specialty Start Date End Date Magdalena Acosta MD [address] [place] [address] PCP - General Family Medicine 02/05/23 documented as of this encounter
--- OUTSIDE RECORDS SUMMARY | 2024-05-04 14:07 | XMS_ITS | Encounter Summary ---
Author Organization [facility] [place] [address] Care Team Providers Care Pst Specialist Name Role Phone Magdalena Acosta MD Primary Care Provider [phone] Encounter Details Date Type Department Care Team (Late st Contact Info) Description 07/08/2023 10:15 AM EST Office Visit Cardiology at [address] [phone] Severe aortic stenosis Social History Tobacco Use [...] Laboratory Appointment Lab at [place] Hematology Oncology [address] [place] [address] 05/12/2024 10:00 AM EDT Office Visit [place] [address] Markel Borjas MD [facility] [address] HEMATOLOGY [place] [address] 03/01/2025 4:15 PM EDT Office Visit Dermatology at [place] [address] [place] [address] Marek Bonilla MD [address], [place] [address] documented as of this encounter Procedures Procedure [...] (Bezet) 449 ms MUSE SYSTEM Calculated P [place] 66 degrees MUSE SYSTEM Calculated R [place] 60 degrees MUSE SYSTEM Calculated T [place] 53 degrees MUSE SYSTEM INTERPRETATION Normal sinus rhythm Minimal voltage criteria for LVH, may be normal variant ( Sokolow-Orozco ) ST & T wave abnormality, consider lateral ischemia ??vs. repolarization abnormality from LVH Abnormal ECG When compared with ECG of 13-MAY-2023 09:22, Premature ventricular complexes are no longer Present Minimal criteria for Septal infarct are no longer Present Confirmed by Maxx Best ([id number]) on 07/09/2023 10:07:22 AM MUSE SYSTEM 07/08/2023 10:2 7 AM EST 07/09/2023 10:07 AM EST Brody Dale Eusebio OSBORN ECG ORDERABLES [employer] SYSTEM documented in this encounter Visit Diagnoses Diagnosis Severe aortic stenosis Aortic valve disorders documented in this encounter Care Teams Pst Specialist Relationship Specialty Start Date End Date Magdalena Acosta MD [address] [place] [address] PCP - General Family Medicine 02/05/23 documented as of this encounter
--- OUTSIDE RECORDS SUMMARY | 2024-05-04 14:07 | XMS_ITS | Encounter Summary ---
Author Organization [place] [address] Care Team Providers Care Statistical Programmer Name Role Phone Magdalena Acosta MD Primary Care Provider [phone] Reason for Referral * Diagnostic Test (Routine) - Closed Specialty Diagnoses / Procedures Referred By Contac t Referred To Contact Cardiology Diagnoses S/P TAVR (transcatheter aortic valve replacement) Procedures Echocardiogram Transthoracic Vinod Juárez PA [facility] [place] [address] [facility] [place] [address] Referral ID Status Reason Start Date Expiration Date V isits Requested Visits Authorized [id number] Closed Specialty Service Requested 05/22/2023 05/21/2024 1 1 Reason for Visit * Diagnostic Test (Routine) - Closed Specialty Diagnoses / Procedures Referred By Contac t Referred To Contact Cardiology Diagnoses S/P TAVR (transcatheter aortic valve replacement) Procedures Echocardiogram Transthoracic Vinod Juárez PA [facility] [place] [address] [facility] [place] [address] Referral ID Status Reason Start Date Expiration Date V isits Requested Visits Authorized [id number] Closed Specialty Service Requested 05/22/2023 05/21/2024 1 1 Encounter Details Date Type Department Care Team (Latest Contact Info) Description 07/08/2023 10:19 AM EST - 07/08/2023 11:59 PM EST Hospital Encounter Non-[place] [address] Alirio Esparza MD S/P TAVR (transcatheter aortic [...] experiencing pain -05/11.). 30 tablet 5 09/25/2016 clopidogreL (Plavix) 75 mg tabletIndications:Aor tic valve [...] AM EDT Laboratory Appointment Lab at [facility] [place] Oncology [address] [place] [address] 05/12/2024 10:00 AM EDT Office Visit Hematology [place] [address] Markel Borjas MD [facility] [address] HEMATOLOGY [place] [address] 03/01/2025 4:15 PM EDT Office Visit Dermatology at [place] [address] [place] [address] Marek Bonilla MD [address] [facility] [place] [address] documented as of this encounter Procedures Procedure [...] EST Narrative 07/08/2023 12:26 PM EST 1 [place] [address] ? Echocardiogram Report Name: ONESIMO THACKER ?Study Date: 07/08/2023 10:31 AMBP: 118/60 mmHg ? Patient Location: : 1955 ? Height: 155 cm ? Account: [id number] Age: 67 yrs ? Weight: 74 kg Gender: Female ?BSA: 1.7 m2 Ordering Physician: ALIRIO ESPARZA Referring Physician: VINOD JUÁREZ Performed By: Felicia Norris RDCS Reason For Study: S/P TAVR Exam Location: [facility]. Interpretation Summary Left ventricular systolic function [...] no significant change (post-procedure). Procedure Limited - 26298. Doppler - 10654. Color Doppler - 16589. Satisfactory quality. This study is limited because [...] Note Lee Kincaid MD - 07/08/2023 1 [place] [address] Echocardiogram Report Name: ANDREWONESIMO Study Date: 310:31 AMBP: 118/60 mmHg Patient Location: : 1955 Height: 155 cm Account: [id number] Age: 67 yrs Weight: 74 kg Gender: Female BSA: 1.7 m2 Ordering Physician: ALIRIO ESPARZA Referring Physician: VINOD JUÁREZ Performed By: Felicia Norris RDCS Reason For Study: S/P TAVR Exam Location: [facility]. Interpretation Summary Left ventricular systolic function [...] is nosignificant change (post-procedure). Procedure Limited - 06355. Doppler - 60171. Color Doppler - 33636. Satisfactoryquality. This study is limited because of [...] replacement) documented in this encounter Care Teams Statistical Programmer Relationship Specialty Start Date End Date Magdalena Acosta MD [address] [place] [address] PCP - General Family Medicine 02/05/23 documented as of this encounter
--- OUTSIDE RECORDS SUMMARY | 2024-05-04 14:07 | XMS_ITS | Encounter Summary ---
Author Organization [facility] [place] [address] Care Team Providers Care Blasting Worker Name Role Phone Magdalena Acosta MD Primary Care Provider [phone] Encounter Details Date Type Department Care Team [...] [facility] Oncology [address] [place] [address] 05/12/2024 10:00 AM EDT Office Visit Hematology [place] [address] Markel Borjas MD [facility] [address] HEMATOLOGY [place] [address] 03/01/2025 4:15 PM EDT Office Visit Dermatology at [place] [address] [place] [address] Marek Bonilla MD [address], [place] [address] documented as of this encounter Visit Diagnoses Not on filedocumented in this encounter Care Teams Blasting Worker Relationship Specialty Start Date End Date Magdalena Acosta MD [address] [place] [address] PCP - General Family Medicine 02/05/23 documented as of this encounter
--- OUTSIDE RECORDS SUMMARY | 2024-05-04 14:07 | XMS_ITS | Encounter Summary ---
Author Organization [facility] [place] [address] Care Team Providers Care Payroll Human Resources Assistant Name Role Phone Magdalena Acosta MD Primary Care Provider [phone] Encounter Details Date Type Department Care Team (Late st Contact Info) Description 05/27/2023 Refill Cardiology at [address] [phone] Vero Marrreo, RN Social History Tobacco Use Types Packs/Day Years Used Date Smoking Tobacco: Never Smokeless Tobacco: Never Alcohol Use Standard Drinks/Week Comments No 0 (1 standard drink = 0.6 oz pur e alcohol) none [facility] Inpatient Questions Answer Date Recorded Does Anyone [...] PM EDT TC to Nurse Sosa at [facility] to relay response from Jay Maza copied below. Nurse Sosa states they will send a new prescription to patient's preferred pharmacy and call the patient with the medication information. No print prescription sent to update med list. May 27, 2023 Jay Maza PA to Nh 05/27/23 2:44 PM OK to change ticagrelor to Clopidogrel. Now, she should be taking ticagrelor 90mg BID. When she switches, she can take ticagrelor, then the next morning, stop ticagrelor, instead take clopidogrel 300mg once, then after that 75mg once daily. Jay Marrero bending shed worker [facility] [address] * Telephone Encounter - Vero Marrero RN - 05/27/2023 1:46 PM EDT VM received from triage nurse Sosa at [facility] stating patient was seen today by Dr. [...] more affordable option, if possible. Vero Marrero bending shed worker [facility] [address] documented in this encounter Plan of Treatment Upcoming Encounters Date Type Department Care Team (Late st Contact Info) Description 05/12/2024 9:00 AM EDT Laboratory Appointment Lab at [facility] Hematology Oncology [address] [place] [phone] 05/12/2024 10:00 AM EDT Office Visit [place] [address] Markel Borjas MD [facility] [address] HEMATOLOGY [place] [address] 03/01/2025 4:15 PM EDT Office Visit Dermatology at [address] [address] Marek Bonilla MD [address], [place] [address] documented as of this encounter Visit Diagnoses Diagnosis Aortic valve stenosis, etiology of cardiac valve disease unspecified documented in this encounter Care Teams Payroll Human Resources Assistant Relationship Specialty Start Date End Date Magdalena Acosta MD [address] [place] [address] PCP - General Family Medicine 02/05/23 documented as of this encounter
--- OUTSIDE RECORDS SUMMARY | 2024-05-04 14:07 | XMS_ITS | Encounter Summary ---
Author Organization [facility] [place] [address] Care Team Providers Care Mechanical Door Repairer Name Role Phone Magdalena Acosta MD Primary Care Provider [phone] Encounter Details Date Type Department Care Team [...] Lab at [facility] [place] Oncology [address] [place] [address] 05/12/2024 10:00 AM EDT Office Visit Hematology [place] [address] Markel Borjas MD [facility] [address] HEMATOLOGY [place] [address] 03/01/2025 4:15 PM EDT Office Visit Dermatology at [place] [address] [place] [address] Marek Bonilla MD [address], [place] [address] documented as of this encounter Visit Diagnoses Not on filedocumented in this encounter Care Teams Mechanical Door Repairer Relationship Specialty Start Date End Date Magdalena Acosta MD [address] [place] [address] PCP - General Family Medicine 02/05/23 documented as of this encounter
--- OUTSIDE RECORDS SUMMARY | 2024-05-04 14:07 | XMS_ITS | Encounter Summary ---
Author Organization [facility] [place] [address] Care Team Providers Care Mental Health Associate Name Role Phone Magdalena Acosta MD Primary Care Provider [phone] Reason for Visit * Reason Comments Aortic Stenosis Coronary Artery Disease Hypertension Encounter Details Date Type Department Care Team (Latest Contact Info) Description 11/16/2023 11:40 AM EDT TH Visit (TeleHealth) Cardiology at [address] [address] Jay Maza PA [place] [address] Aortic valve stenosis, etiology of cardiac valve disease unspecified; Coronary artery disease, unspecified vessel or lesion type, unspecified whether angina present, unspecified whether sitka or transplanted heart Social History Tobacco Use [...] from the original note were not included. [facility] Interventional Cardiology CARDIOLOGY TELE VISIT NOTE 11/16/23 Patient: Purnima Thacker Prior to the initiation of our discussion, the risks and benefits of tele health visits were discussed, and the patient consented verbally to this being a virtual telehealth visit in lieu of an in person office visit. CARDIOLOGISTS: Antelmo Sharma MD ([facility] Cards) Maria Luz Mejia MD ([facility] Cards - [facility]) [...] fraction I35.0 Mild coronary artery disease by [facility] 11/09/2022 I25.10 Heart failure [...] notable for coronary artery protection given low ssauc-mx-qywfiobn distance. There was no obstruction post Valve [...] leads Confirmed by MD Harshil, Haris Bell ([id number]) on 05/10/2023 8:11:46 AM Cardiac Cath 11/09/2022 [...] in one year. EKATERINA Thompson Time spent: [id number] 0-5min 3735IJO5 6-10min 3284HFL6 11-15min x [id number] 16-20min 2471LKQ9 21-30min 7622XYP8 31-40min 0955WHV4 40+ min Jay Maza PA-C Interventional Cardiology [facility] Pager [phone] documented in this encounter Plan of Treatment Upcoming Encounters Date Type Department Care Team (Late st Contact Info) Description 05/12/2024 9:00 AM EDT Laboratory Appointment Lab at [facility] Hematology Oncology [address] [place] [address] 05/12/2024 10:00 AM EDT Office Visit Hematology [place] [address] Mark[place] Borjas MD [facility] [address] [place] [address] 03/01/2025 4:15 PM EDT Office Visit Dermatology at [place] [address] [place] [address] Marek Bonilla MD [address], [place] [address] documented as of this encounter Visit Diagnoses Diagnosis Aortic valve stenosis, etiology of cardiac valve disease unspecified Coronary artery disease, unspecified vessel or lesion type, unspecified whether angina present, unspecified whether sitka or transplanted heart documented in this encounter Care Teams Mental Health Associate Relationship Specialty Start Date End Date Magdalena Acosta MD [address] [place] [address] PCP - General Family Medicine 02/05/23 documented as of this encounter
--- OUTSIDE RECORDS SUMMARY | 2024-05-04 14:07 | XMS_ITS | Encounter Summary ---
Author Organization [facility] [place] [address] Care Team Providers Care Propagation Manager Name Role Phone Magdalena Acosta MD Primary Care Provider [phone] Reason for Referral * Diagnostic Test (Routine) - New Request Specialty Diagnoses / Procedures Referred By Contac t Referred To Contact Cardiology Diagnoses S/P TAVR (transcatheter aortic valve replacement) Procedures Echocardiogram Transthoracic Antelmo Sharma MD [facility] [address] [facility] [place] [address] Referral ID Status Reason Start Date Expiration Date Visits Requested Visits Authorized [id number] New Request Specialty Service Requested 12/16/2023 12/15/2024 1 1 Encounter Details Date Type Department Care Team (Late st Contact Info) Description 12/16/2023 Orders Only Cardiology at [address] [address] Antelmo Sharma MD [facility] [address] S/P TAVR (transcatheter aortic valve [...] [facility] On[facility] [address] [place] [address] 05/12/2024 10:00 AM EDT Office Visit Hematology [place] [address] Mark[place] Borjas MD [facility] [address] [place] [address] 03/01/2025 4:15 PM EDT Office Visit Dermatology at [place] [address] [place] [address] Marek Bonilla MD [address], [place] [address] Scheduled Orders Name Type Priority Associated Diagnoses [...] replacement) documented in this encounter Care Teams Propagation Manager Relationship Specialty Start Date End Date Magdalena Acosta MD [address] [place] [address] PCP - General Family Medicine 02/05/23 documented as of this encounter
--- OUTSIDE RECORDS SUMMARY | 2024-05-04 14:07 | XMS_ITS | Encounter Summary ---
[place] [address] Care Team Providers Care Supervisor Cutting Department Name Role Phone Magdalena Acosta MD Primary Care Provider [phone] Reason for Referral * Consultation (Routine) - Authorized Specialty Diagnoses / Procedures Referred By Contac t Referred To Contact Hematology and Oncology Diagnoses Anemia, unspecified type Consuelo Guerrero DO [address] [place] [address] [address] [place] [address] [facility] Hem Onc [address] [place] [address] Referral ID Status Reason Start Date Expiration Date Visits Requested Visits Authorized [id number] Authorized Consult, Test & Treat 04/11/2024 04/11/2025 1 1 Encounter Details Date Type Department Care Team (Late st Contact Info) Description 04/11/2024 Transcribe Orders eDH Incoming Referrals [phone] Consuelo Guerrero DO [address] [place] [address] [address] [place] [address] Anemia, unspecified type Social History Tobacco Use Types Packs/Day Years Used Date Smoking Tobacco: Never Smokeless Tobacco: Never Alcohol Use Standard Drinks/Week Comments No 0 (1 standard drink = 0.6 oz pur e alcohol) none [facility] Inpatient Questions Answer Date Recorded Does Anyone [...] 9:00 AM EDT Laboratory Appointment Lab at [facility] Hematology Oncology [address] [place] [address] 05/12/2024 10:00 AM EDT Office Visit [place] [address] Markel Bojras MD [facility] DR HEMATOLOGY [place] [address] 03/01/2025 4:15 PM EDT Office Visit Dermatology at [address] [address] Marek Bonilla MD [address] [facility], [facility] [place] [address] Scheduled Referrals Name Type Priority Associated Diagnoses Orde r Schedule Referral to Hematology and Oncology Outpatient Referral Routine Anemia, unspecified type Ordered: 04/11/2024 documented as of this encounter Visit Diagnoses Diagnosis Anemia, unspecified type documented in this encounter Care Teams Supervisor Cutting Department Relationship Specialty Start Date End Date Magdalena Acosta MD [address] [place] [address] PCP - General Family Medicine 02/05/23 documented as of this encounter
--- OUTSIDE RECORDS SUMMARY | 2024-05-04 14:07 | XMS_ITS | Encounter Summary ---
Author Organization [facility] [address] Care Team Providers Care Public Relations Studies Director Name Role Phone Magdalena Acosta MD Primary Care Provider Encounter Details Date Type Department Care Team (Late st Contact Info) Description 12/02/2023 11:15 AM EDT Office [place] [address] Magdalena Peralta MD [facility] [place] [address] Mixed connective tissue disease Social History Tobacco [...] 1:5120 speckled; VIC negative; Myositis panel with WARP SPLITTER ab 149.1 (positive); Anti U1RNP IgG 119; [...] list of questions that she sent via [facility] ahead of her visit, which we [...] exposure. She has an appointment with her Hearing Therapy Teacher scheduled in January. (Dr Bonilla in [place]) ROS (positives in bold): Gen: no fevers, [...] but I encouraged her to contact her Hearing Therapy Teacher to see if she could have her [...] Dr. Tanisha Peralta MD Rheumatology Fellow Pager: [phone] * Federico Yee MD - 12/02/2023 11:15 [...] [facility] Hematology Oncology [address] [place] [address] 05/12/2024 10:00 AM EDT Office Visit Hematology [place] [address] Markel Borjas MD [facility] [address] [place] [address] 03/01/2025 4:15 PM EDT Office Visit Dermatology at [address] [phone] Marek Bonilla MD [address] [place] [address], [facility] [place] [address] Scheduled Orders Name Type Priority Associated Diagnoses Orde r Schedule EKG 12 Lead ECG Routine Mixed connective tissue disease Expected: 12/02/2023, Expires: 06/03/2024 documented as of this encounter Visit Diagnoses Diagnosis Mixed connective tissue disease Other specified diffuse disease of connective tissue documented in this encounter Care Teams Public Relations Studies Director Relationship Specialty Start Date End Date Magdalena Acosta MD [address] [place] [address] PCP - General Family Medicine 02/05/23 documented as of this encounter
--- OUTSIDE RECORDS SUMMARY | 2024-05-04 14:07 | XMS_ITS | Encounter Summary ---
[place] [address] Care Team Providers Care Ceo & Board Director Name Role Phone Magdalena Acosta MD Primary Care Provider [phone] Encounter Details Date Type Department Care Team (Latest Contact Info) Description 10/05/2023 10:52 AM EST - 10/05/2023 11:59 PM [facility] Hospital Encounter [place] [address] Mixed connective tissue disease Discharge Disposition: Home Social History Tobacco Use Types Packs/Day Years Used Date Smoking Tobacco: Never Smokeless Tobacco: Never Alcohol Use Standard Drinks/Week Comments No 0 (1 standard drink = 0.6 oz pur e alcohol) none [facility] Inpatient Questions Answer Date Recorded Does Anyone [...] tablet Take 81 mg by mouth daily. losartan (Cozaar) 25 mg tablet Take 25 [...] Verio test strips Strip USE DAILY 01/03/2022 Noveda TechnologiesTouch Delica Plus Lancet 33 gauge Misc USE DAILY 01/03/2022 amoxicillin (AMOXIL) 500 mg Tablet Take 2,000 mg by mouth once as needed. Before dental acetaminophen (TYLENOL) 500 mg Tablet Take 2 tablets by mouth every 6 hours as needed for Pain (Please take up to 1,000 mg every 6 hours when experiencing pain -05/11.). 30 tablet 5 09/25/2016 ticagrelor (Brilinta) 90 mg tablet Take 90 [...] at [facility] [place]emat[facility] Oncology [address] [place] [address] 05/12/2024 10:00 AM EDT Office Visit Hematology [place] [address] Markel Borjas MD [facility] [place] [address] 03/01/2025 4:15 PM EDT Office Visit Dermatology at [place] [address] [place] [address] Marek Bonilla MD [address] [place] [address] documented as of this encounter Procedures Procedure [...] PFT FEV1/FVC Pre-BD Z-Score 0 COMPAS PFT OYL37-81 Actual Pre-BD 2.41 % COMPAS PFT WJD09-07 Predicted 1.8 % COMPAS PFT [id number] Pre-BD % of Predicted 134 % COMPAS PFT LBM78-81 Pre-BD Z-Score 0.81 COMPAS PFT DLCO Hb [...] tissue documented in this encounter Care Teams Ceo & Board Director Relationship Specialty Start Date End Date Magdalena Acosta MD [address] [place] [address] PCP - General Family Medicine 02/05/23 documented as of this encounter
--- OUTSIDE RECORDS SUMMARY | 2024-05-04 14:07 | XMS_ITS | Encounter Summary ---
[place] [address] Care Team Providers Care Information Assurance Manager Name Role Phone Magdalena Acosta MD Primary Care Provider [phone] Encounter Details Date Type Department Care Team (Latest Contact Info) Description 07/08/2023 12:35 PM EST Laboratory Appointment Lab [address] [place] [address] S/P TAVR (transcatheter aortic valve [...] [facility] Hematology Oncology [address] [place] [address] 05/12/2024 10:00 AM EDT Office Visit Hematology [place] [address] Markel Borjas MD [facility] [address] HEMATOLOGY [place] [address] 03/01/2025 4:15 PM EDT Office Visit Dermatology at [place] [address] [place] [address] Marek Bonilla MD [address], [place] [address] documented as of this encounter Procedures Procedure [...] 11:56 AM EST) Neutrophil % 73.2 % [facility] Neutrophil Absolute 3.40 1.70 - 6.10 x10(3)/mc L [facility] Lymph % 16.1 % [facility] Lymphocytes Abs 0.8(L) 0.9 - 3.2 x10(3)/mc L [facility] Monocyte % 9.7 % [facility] Monocyte Abs 0.4 0.3 - 0.9 x10(3)/mc L [facility] Eos % 0.4 % [facility] Eosinophils Abs 0.0 0.0 - 0.4 x10(3)/mc L [facility] Basophil % 0.4 % [facility] IT[facility] Baso Absolute 0.0 0.0 - 0.1 x10(3)/ L [facility] Immature Gran % 0.20 % [facility] Comment: Immature granulocytes(IG's)percentage and absolute count will include metamyelocytes, myelocytes, and promyelocytes. Blood smears from CBCs yielding IG's will be scanned manually for concordance. If this scan disagrees with the automated IG or if promyelocytes are noted, a manual differential will be performed. Immature Gran Absolute 0.01 0.00 - 0.04 x10(3)/ L [facility] Blood 07/08/2023 11:5 6 AM EST 07/08/2023 12:02 PM EST Narrative Resulting Agency Comment Spec In Lab Minh TOBAR HEMATOLOGY ORDERABLE S [facility] [place] [address] * (ABNORMAL) Hemogram (07/08/2023 11:56 AM EST) White Blood Cell 4.6 4.0 - 9.5 x10(3)/[facility] LABOR[facility] Red Blood Cell 3.34(L) 4.00 - 5.21 x10(6)/[facility] Hemoglobin 11.0(L) 11.7 - 15.5 g/dL [facility] Hematocrit 33.2(L) 35.7 - 45.8 % [facility] Mean Cell Volume 99.4(H) 82.6 - 94.4 fL [facility] Mean Cell Hemoglobin 32.9(H) 27.1 - 32.0 pg [facility] Mean Cell Hemoglobin Concentration 33.1 31.7 - 35.0 g/dL [facility] Platelet 166 145 - 357 x10(3)/[facility] LAB[facility]AT[facility] RDW Standard Deviation 47.1(H) 37.0 - 46.0 fL [facility] RDW coefficient of variation 13.0 11.5 - 14.1 % [facility] Mean Platelet Volume 9.0 7.6 - 12.9 fL [facility] NRBC% auto 0.0 % [facility] ITAL [facility] NRBC Absolute 0.000 0.000 - 0.000 x10(3)/ L [facility] Blood 07/08/2023 11:5 6 AM EST 07/08/2023 12:02 PM EST Narrative Resulting Agency Comment Spec In Lab Minh TOBAR HEMATOLOGY ORDERABLE S [facility] [place] [address] * (ABNORMAL) Comprehensive metabolic panel (non-fasting) (07/08/2023 11:56 AM EST) Glucose 93 65 - 199 mg/dL [facility] Comment:Diabetes: >=200 mg/d L plus symptoms Blood Urea Nitrogen 19(H) 8 - 18 mg/dL [facility] Creatinine 0.81 0.70 - 1.20 mg/dL [facility] Sodium 142 135 - 145 mmol/L [facility] Potassium 3.8 3.5 - 5.0 mmol/L [facility] Comment: Please note: ??Patients with WBC >100,000 may have falsely elevated Potassium levels. ??For accurate Potassium quantification in these patients send serum separator tube (gold top) for subsequent determinations. ??Contact the Clinical Chemistry Laboratory if there are any questions. Chloride 104 98 - 107 mmol/L [facility] Carbon Dioxide 26 22 - 31 mmol/L [facility] Anion Gap 12 5 - 15 mmol/L [facility] Calcium 10.2 8.5 - 10.5 mg/dL [facility] Protein, Total 7.4 6.1 - 8.0 g/dL [facility] Albumin 4.1 3.2 - 5.2 g/dL [facility] Aspartate Aminotransferase 24 0 - 30 unit/L [facility] Alanine Aminotransferase 12 0 - 30 unit/L [facility] Alkaline Phosphatase 93 35 - 105 unit/L [facility] Bilirubin, Total 0.3 0.2 - 1.3 mg/dL [facility] Est Glomerular Filtration Rate 80 >=60 mL/min/1. 73 m?? [facility] Comment: This patient's estimated GFR [...] Lab Alirio Esparza MD [place] [address] documented in this encounter Visit Diagnoses Diagnosis S/P TAVR (transcatheter aortic valve replacement) Severe aortic stenosis Aortic valve disorders documented in this encounter Care Teams Information Assurance Manager Relationship Specialty Start Date End Date Magdalena Acosta MD [address] [place] [address] PCP - General Family Medicine 02/05/23 documented as of this encounter
--- OUTSIDE RECORDS SUMMARY | 2024-05-04 14:07 | XMS_ITS | Encounter Summary ---
Author Organization [facility] [place] [address] Care Team Providers Care Tester Equipment Name Role Phone Magdalena Acosta MD Primary Care Provider [phone] Encounter Details Date Type Department Care Team [...] [facility] [place] H[facility] Oncology [address] [place] [address] 05/12/2024 10:00 AM EDT Office Visit Hematology [place] [address] Markel Borjas MD [facility] [address] [place] [address] 03/01/2025 4:15 PM EDT Office Visit Dermatology at [place] [address] [place] [phone] Marek Bonilla MD [address] [place] [address] documented as of this encounter Visit Diagnoses Not on filedocumented in this encounter Care Teams Tester Equipment Relationship Specialty Start Date End Date Magdalena Acosta MD [address] [place] [address] PCP - General Family Medicine 02/05/23 documented as of this encounter
--- OUTSIDE RECORDS SUMMARY | 2024-05-04 14:07 | XMS_ITS | Encounter Summary ---
[place] [address] Care Team Providers Care Tuber Machine Cutter Name Role Phone Magdalena Acosta MD Primary Care Provider [phone] Reason for Visit * Reason Onset Date Comments Pre Procedure Call 03/01/2024 DAPT hold for EGD and colo? Encounter Details Date Type Department Care Team (Late st Contact Info) Description 03/01/2024 Telephone Cardiology at [address] [phone] Cynthia Monsalve RN Pre Procedure Call (DAPT [...] safe. Jay Message above left with Yenifer (curtain inspector), who would be leaving this note in patient's chart for providers to schedule patient. No further questions or needs at this time. This nurse stated, note will be placed regarding this call in our chart for patient. Kezia Whitney RN, BSN Ambulatory Cardiology Clinic, [facility] [phone] * Telephone Encounter - Cynthia Monsalve RN [...] AM EDT Laboratory Appointment Lab at [facility] Hematology Oncology [address] [place] [address] 05/12/2024 10:00 AM EDT Office Visit [place] [address] Markel Borjas MD [facility] DR H[place]AT[place] [address] 03/01/2025 4:15 PM EDT Office Visit Dermatology at [place] [address] [place] [address] Marek Bonilla MD [address] [place] [address] documented as of this encounter Visit Diagnoses Not on filedocumented in this encounter Care Teams Tuber Machine Cutter Relationship Specialty Start Date End Date Magdalena Acosta MD [address] [place] [address] PCP - General Family Medicine 02/05/23 documented as of this encounter
--- OUTSIDE RECORDS SUMMARY | 2024-05-04 14:07 | XMS_ITS | Clinical Summary ---
Author Organization [facility] Address [facility] [place] [address] Care Team Providers Care Principal Data Architect Name Role Phone Magdalena Acosta MD Primary Care Provider [phone] Allergies No known active allergies Medications Medication [...] fraction 05/08/2023 Mild coronary artery disease by [facility] 11/09/2022 Heart failure with reduced e [...] Description 04/11/2024 Transcribe Orders eDH Incoming Referrals [phone] Consuelo Guerrero, DO Anemia, unspecified type 03/01/2024 Telephone Cardiology at [address] [address] Cynthia Monsalve RN Pre Procedure Call (DAPT hold for EGD and colo?) 02/22/2024 4:15 PM EDT Office Visit Dermatology at [address] [place] [address] Marek Bonilla MD Seborrheic keratosis; Rosacea; Nevus [...] [facility] Hematology Oncology [address] [place] [address] 05/12/2024 10:00 AM EDT Office Visit Hematology [place] [address] Markel Borjas MD [facility] DR HEMATOLOGY [place] [address] 03/01/2025 4:15 PM EDT Office Visit Dermatology at [place] [address] [place] [address] Marek Bonilla MD [address] [place] [address] Health Maintenance Due Date Last [...] 06/05/2036 06/05/2021 Medical Devices Implanted Type Area Senior Marketing Manager Device Identifier Shelf Expiration Date Model / Serial / Lot Valve,Aor,Pericar d,Magna,25mm ([id number]) - [id number] Implanted:Qty: 1 on 09/21/2016 by Alirio Esparza MD at [facility] IMPLANTS N/A: Heart DO NOT USE [employer] - [id number] 06/02/2020 [id number] / / [id number] Cable,Blnt,Ss,38i n ([id number]) - [id number] Implanted:Qty: 4 on 09/21/2016 by Alirio Esparza MD at [facility] IMPLANTS N/A: Chest [employer] - [id number] 04/29/2021 [id number] / / [id number] Patch,Cav,Pericar d,2x5cm ([id number]) (Autoreq) - [id number] Implanted:Qty: 1 on 09/21/2016 by Alirio Esparza MD at [facility] IMPLANTS N/A: Heart DO NOT USE [employer] - [id number] 04/21/2018 [id number] / / [id number] Tavr-05/12/2023 Implanted:Qty: 1 on 05/12/2023 by Antelmo Sharma MD Other Heart [employer] - JAIME LI [id number] / [id number] / Description:[employer] NCES ABBY 3 ULTRA [...] EST) Glucose 93 65 - 199 mg/dL [facility] Comment:Diabetes: >=200 mg/d L plus symptoms Blood Urea Nitrogen 19(H) 8 - 18 mg/dL [facility] Creatinine 0.81 0.70 - 1.20 mg/dL [facility] Sodium 142 135 - [...] CHEMISTRY ORDERABLE S [facility] [place] [address] * DXA Central Spine, Hip, and/or Whole Body (Generic) (06/05/2021 11:58 AM EDT) PT CLASS O RAD ADMITDTTM RAD PT RAD INFO [id number]^E VERETT^DEBORAH ^E RAD EXAM DESC XDXAC^DEXA SCAN [...] who have questions please contact the health palliative care coordinator that requested your imaging first. ? Electronically signed by: Rocael Villatoro MD, [facility] ([phone]), at 06/05/2021 12:00 PM Narrative 06/05/2021 12:00 [...] patients who have questions please contactthe health palliative care coordinator that requested your imaging first. Electronically signed by: Rocael Villatoro MD, [facility]([phone]), at 06/05/2021 12:00 PM Deborah Quiroga HOUSING SPECIALIST IMG DEXA ORDERABLES * Mammo Screening Cad Bilateral (06/05/2021 11:42 AM EDT) PT CLASS O RAD ADMITDTTM RAD PT RAD INFO [id number]^EV ERETT^DEBORAH^E RAD EXAM DESC MADDSC^SCREEN MAMMO BL [...] who have questions please contact the health palliative care coordinator that requested your imaging first. ? Electronically signed by: Rocael Villatoro MD, [facility] ([phone]), at 06/05/2021 1:27 PM Narrative 06/05/2021 1:27 [...] patients who have questions please contactthe health palliative care coordinator that requested your imaging first. Electronically signed by: Rocael Villatoro MD, [facility]([phone]), at 06/05/2021 1:27 PM Deborah Quiroga APRN [...] capacity to make decision: Yes Care Teams Principal Data Architect Relationship Specialty Start Date End Date Magdalena Acosta MD [address] [place] [address] PCP - General Family Medicine 02/05/23
--- OUTSIDE RECORDS SUMMARY | 2024-05-04 14:07 | XMS_ITS | Encounter Summary ---
Author Organization [facility] Address [facility] [place] [address] Care Team Providers Care Manager Document Name Role Phone Magdalena Acosta MD Primary Care Provider [phone] Encounter Details Date Type Department Care Team (Late st Contact Info) Description 07/29/2023 11:00 AM EST [place] [address] Magdalena Peralta MD [facility] [place] [address] Mixed connective tissue disease Social History Tobacco [...] 1:5120 speckled; VIC negative; Myositis panel with DRUM SAW OPERATOR ab 149.1 (positive); Anti U1RNP IgG [...] Viramontes. Magdalena Peralta MD Rheumatology Fellow Pager: [phone] * Kia Viramontes DO - 07/29/2023 11:00 AM EST ATTENDING ADDENDUM The patient's history was reviewed, and I interviewed and examined the patient with Dr. Peralta I agree with her summary, findings, and plan. documented in this encounter Plan of Treatment Upcoming Encounters Date Type Department Care Team (Late st Contact Info) Description 05/12/2024 9:00 AM EDT Laboratory Appointment Lab at [facility] [place] Oncology [address] [place] [address] 05/12/2024 10:00 AM EDT Office Visit [place] [address] Markel Borjas MD [facility] [address] [place] [address] 03/01/2025 4:15 PM EDT Office Visit Dermatology at [place] [address] [place] [address] Marek Bonilla MD [address] [facility] [place] [address] documented as of this encounter Results * [...] PFT FEV1/FVC Pre-BD Z-Score 0 COMPAS PFT EZC80-86 Actual Pre-BD 2.41 % COMPAS PFT CUZ27-26 Predicted 1.8 % COMPAS PFT WPR59-26 Pre-BD % of Predicted 134 % COMPAS PFT JHL72-19 Pre-BD Z-Score 0.81 COMPAS PFT DLCO Hb [...] IMPRESSION: Normal spirometry. No diffusion impairment. Kia Viramnotes DO PFT ORDERABLES COMPAS PFT documented in this encounter Visit Diagnoses Diagnosis Mixed connective tissue disease Other specified diffuse disease of connective tissue Mixed connective tissue disease Other specified diffuse disease of connective tissue documented in this encounter Care Teams Manager Document Relationship Specialty Start Date End Date Magdalena Acosta MD [address] [place] [address] PCP - General Family Medicine 02/05/23 documented as of this encounter
--- OUTSIDE RECORDS SUMMARY | 2024-05-04 14:07 | XMS_ITS | Encounter Summary ---
Author Organization [facility] [place] [address] Care Team Providers Care Plastic Mixer Name Role Phone Magdalena Acosta MD Primary Care Provider [phone] Encounter Details Date Type Department Care Team [...] 9:00 AM EDT Laboratory Appointment Lab at [facility] Hematology Oncology [address] [place] [address] 05/12/2024 10:00 AM EDT Office Visit [place] [address] Markel Borjas MD [facility] [address] HEMATOLOGY [place] [address] 03/01/2025 4:15 PM EDT Office Visit Dermatology at [place] [address] [place] [address] Marek Bonilla MD [address] [place] [address] documented as of this encounter Visit Diagnoses Not on filedocumented in this encounter Care Teams Plastic Mixer Relationship Specialty Start Date End Date Magdalena Acosta MD [address] [place] [address] PCP - General Family Medicine 02/05/23 documented as of this encounter
--- OUTSIDE RECORDS SUMMARY | 2024-05-04 14:07 | XMS_ITS | Encounter Summary ---
[place] [address] Care Team Providers Care Weather Forecaster Name Role Phone Magdalena Acosta MD Primary Care Provider [phone] Reason for Visit * Reason Comments Annual Exam Encounter Details Date Type Department Care Team (Late st Contact Info) Description 02/22/2024 4:15 PM EDT Office Visit Dermatology at [address] [phone] Marek Bonilla MD [address] [facility] A [place]ERMATOLOGY [place], [place] [id number] Seborrheic keratosis; Rosacea; Nevus Social History Tobacco [...] cutaneous and ocular 3. Previously told by tariff clerk that she had corneal tears from [...] 9:00 AM EDT Laboratory Appointment Lab at [facility] Hematology Oncology [address] [place] [address] 05/12/2024 10:00 AM EDT Office Visit Hematology [place] [address] Markel Borjas MD [facility] [address] HEMATOLOGY [place] [address] 03/01/2025 4:15 PM EDT Office Visit Dermatology at [place] [address] [facility] [place] [phone] Marek Bonilla MD [address] [facility] [place] [address] documented as of this encounter Visit Diagnoses Diagnosis Seborrheic keratosis Other seborrheic keratosis Rosacea Nevus Benign neoplasm of skin, site unspecified documented in this encounter Care Teams Weather Forecaster Relationship Specialty Start Date End Date Magdalena Acosta MD [address] [place] [address] PCP - General Family Medicine 02/05/23 documented as of this encounter
--- OUTSIDE RECORDS SUMMARY | 2024-05-04 14:07 | XMS_ITS | Encounter Summary ---
Author Organization [facility] [place] [address] Care Team Providers Care Front End Technician Name Role Phone Magdalena Acosta MD Primary Care Provider [phone] Reason for Visit * Reason Comments Coronary Artery Disease Hypertension Aortic Stenosis Encounter Details Date Type Department Care Team (Latest Contact Info) Description 07/20/2023 4:40 PM EST TH Visit (TeleHealth) Cardiology at [address] [phone] Jay Maza PA [facility] [place] [address] HFrEF (heart failure with reduced ejection fraction); [...] Maza PA - 07/20/2023 4:40 PM EST [facility] Interventional Cardiology [...] lieu of an in person office visit. Corporate Manager: Antelmo Sharma MD ([facility] Cards) Maria Luz Mejia MD ([facility] cards) Problem List: : prior surgical [...] Mild coronary artery disease by [facility] 11/09/2022 I25.10 Heart failure with reduced ejection [...] notable for coronary artery protection given low shahq-di-jdszpooj distance. There was no obstruction post Valve deployment, but the stent could not be removed safely, so it was deployed. 4.0 mm x 30mm in left main. She was loaded on brilinta aka ticagrelor. Immediately post valve deployment, chest compressions to circulate central epinephrine which was administered given her hypotension, low LVEF, and low cardiac reserve. Next, the patient was transferred to [facility] for pressor and inotropic support. Pressors weaned overnight. Cardiac indices by thermodilution remained greater than 3 with continued Milrinone 0.125 mcg/kg/min. EKG the next day with NSR with stable CO/QRS intervals. Hemoglobin 7.8 [...] arms and wrists. Successful right transfemoral TAVR Xegbc-ad-Mtlvt with a 23 mm Lai 3 THV. [...] leads Confirmed by MD Harshil, Haris Bell ([id number]) on 05/10/2023 8:11:46 AM Cardiac Cath 11/09/2022 [...] in chart review and direct patient contact. [id number] 0-5min [id number] 6-10min [id number] 11-15min [id number] 16-20min x [id number] 21-30min [id number] 31-40min [id number] 40+ min Jay Maza PA-C Interventional Cardiology [facility] Heart and Vascular [facility] Pager [phone] documented in this encounter Plan of Treatment Upcoming Encounters Date Type Department Care Team (Late st Contact Info) Description 05/12/2024 9:00 AM EDT Laboratory Appointment Lab at [facility] Hematology Oncology [address] [place] [address] 05/12/2024 10:00 AM EDT Office Visit [place]ology [place] [address] Markel Borjas MD [facility] [address] [place] [address] 03/01/2025 4:15 PM EDT Office Visit Dermatology at [place] [address] [place] [address] Marek Bonilla MD [address] [facility] [address] [place] [address] documented as of this encounter Visit Diagnoses Diagnosis HFrEF (heart failure with reduced ejection fraction) Hypertension, unspecified type Aortic valve stenosis, etiology of cardiac valve disease unspecified documented in this encounter Care Teams Front End Technician Relationship Specialty Start Date End Date Magdalena Acosta MD [address] [place] [address] PCP - General Family Medicine 02/05/23 documented as of this encounter
--- OUTSIDE RECORDS SUMMARY | 2024-05-04 14:08 | XMS_ITS | Encounter Summary ---
Author Organization [facility] [place] [address] Care Team Providers Care Costing Manager Name Role Phone Magdalena Acosta MD [...] 9:00 AM EDT Laboratory Appointment Lab at [facility] Hematology Oncology [address] [place] [address] 05/12/2024 10:00 AM EDT Office Visit Hematology [place] [address] Markel Borjas MD [facility] [address] [place] [address] 03/01/2025 4:15 PM EDT Office Visit Dermatology at [place] [address] [place] [phone] Marek Bonilla MD [address], [place] [address] documented as of this encounter Visit Diagnoses Not on filedocumented in this encounter Care Teams Costing Manager Relationship Specialty Start Date End Date Magdalena Acosta MD [address] [place] [address] PCP - General Family Medicine 02/05/23 documented as of this encounter
--- OUTSIDE RECORDS SUMMARY | 2024-05-04 14:08 | XMS_ITS | Encounter Summary ---
[place] [address] Care Team Providers Care Shot Coat Tender Name Role Phone Magdalena Acosta MD Primary Care Provider [phone] Reason for Visit * Auth/Cert (Routine) Specialty Diagnoses / Procedures Referred By Contac t Referred To Contact Diagnoses Symptomatic severe aortic stenosis with low ejection fraction NSTEMI, CHF Haris Chua MD [facility] [place] [address] [facility] Referral ID Status Reason Start Date Expiration Date Visits Re quested Visits Authorized [id number] 1 1 Encounter Details Date Type Department Care Team (Late st Contact Info) Description 05/12/2023 7:35 AM EDT Anesthesia Event [place] [address] Lynda Mcgowan MD [facility] [place] [address] Alie Park MD [facility] [place] [address] Anesthesia Record Procedure Summary Procedure Name Responsible [...] cephalic vein (lateral side of arm), left; nvnd-yar-wueehx catheter system; Anatomical Landmarks; US Not Used; [...] RN LDA Cath/EP Sheath 05/12/23; 0733; 14 Algerian (Fr); Right; Femoral; Arterial 05/12/23 0733 by Guerda Bender, RN 05/12/23 0830 by Guerda Bender RN LDA Cath/EP Sheath 05/12/23; 0734; 6 Algerian (Fr); Right; Femoral; Venous 05/12/23 0734 by Guerda Bender RN 05/12/23 0817 by Guerda Bender RN LDA Cath/EP Sheath 05/12/23; 0734; 7 Algerian (Fr); Left; Femoral; Arterial 05/12/23 0734 by Guerda Bender, RN 05/12/23 0837 by Guerda Bender RN LDA Cath/EP Sheath 05/12/23; 0734; 6 Algerian (Fr); Left; Femoral; Venous 05/12/23 0734 by [...] Procedure Summary Date: 05/12/23 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 Mild coronary artery disease by [facility] 11/09/2022 05/08/2023 ??? Heart [...] 5.6) performed by Nitesh Escobedo MD at [facility] CATH LABS ??? PRO AORTOPLAS FOR SUPRAVALV STEN N/A 09/21/2016 @AORTOPLASTY FOR SUPRAVALVULAR STENOSIS (WRVU 29.33) performed by Alirio Esparza MD at [facility] MAIN OR ??? PRO REPLACEMENT PROSTHETIC AORTIC VALVE OPEN W CARDIOPULMONARY BYPASS HOMOGRF/STENT N/A 09/21/2016 @REPLACE AORTIC VALVE, OPEN, W\CPB, W\PROSTHETIC VALVE (WRVU 41.32) performed by Alirio Esparza MD at [facility] MA[facility] OR Social History Tobacco Use [...] 3 general, with a(n) intravenous induction Add-on lhwnz-io-shhnb TAVR. In cardiogenic shock. Has arterial line, [...] EDT Laboratory Appointment Lab [place] [facility] [place] [address] [place] [address] 05/12/2024 10:00 AM EDT Office Visit Hematology [place] [address] Markel Borjas MD [facility] DR [place] [address] 03/01/2025 4:15 PM EDT Office Visit Dermatology at [place] [address] [place] [address] Marek Bonilla MD [address] [place] [address] documented as of this encounter Visit Diagnoses [...] mL/hr documented in this encounter Care Teams Shot Coat Tender Relationship Specialty Start Date End Date Magdalena Acosta MD [address] [place] [address] PCP - General Family Medicine 02/05/23 documented as of this encounter
--- OUTSIDE RECORDS SUMMARY | 2024-05-04 14:08 | XMS_ITS | Encounter Summary ---
Author Organization [facility] [place] [address] Care Team Providers Care Pre Owned Sales Manager Name Role Phone Magdalena Acosta MD Primary Care Provider [phone] Reason for Referral * Diagnostic Test (Routine) - Closed Specialty Diagnoses / Procedures Referred By Contac t Referred To Contact Cardiology Diagnoses S/P TAVR (transcatheter aortic valve replacement) Procedures Echocardiogram Transthoracic Vinod Juárez PA [facility] [address] [facility] [place] [address] Referral ID Status Reason Start Date Expiration Date V isits Requested Visits Authorized [id number] Closed Specialty Service Requested 05/22/2023 05/21/2024 1 1 * Home Health Care (Routine) - Closed Specialty Diagnoses / Procedures Referred By Contac t Referred To Contact Diagnoses S/P TAVR (transcatheter aortic valve replacement) Alirio Hudson MD [facility] CARDIOTHORACIC SURGERY [address] [facility] & [address] [place] [address] Referral ID Status Reason Start Date Expiration Date V isits Requested Visits Authorized [id number] Closed Consult, Test & Treat 05/22/2023 11/18/2023 999 999 * Consultation (Routine) - Closed Specialty Diagnoses / Procedures Referred By Crispin maxwell Referred To Contact Cardiology Diagnoses S/P TAVR (transcatheter aortic valve replacement) Alirio Hudson MD [facility] C[place]IOTH[place] [address] Cardiac Rehab, [address] [place] [address] Referral ID Status Reason Start Date Expiration Date V isits Requested Visits Authorized [id number] Closed Consult, Test & Treat 05/22/2023 11/18/2023 36 36 * Diagnostic Test (Routine) - Closed Specialty Diagnoses / Procedures Referred By Crispin maxwell Referred To Contact Cardiology Diagnoses Aortic valve stenosis, etiology of cardiac valve disease unspecified Procedures Echocardiogram Transthoracic Transesophageal Echocardiogram (YUSRA) Radha Hollins MD [facility] [place] [address] [facility] [place] [address] Referral ID Status Reason Start Date Expiration Date V isits Requested Visits Authorized [id number] Closed Specialty Service Requested 05/11/2023 05/10/2024 1 1 Reason for Visit * Auth/Cert (Routine) Specialty Diagnoses / Procedures Referred By Crispin maxwell Referred To Contact Diagnoses Symptomatic severe aortic stenosis with low ejection fraction NSTEMI, CHF Enrique Chua MD [facility] [place] [address] [facility] Referral ID Status Reason Start Date Expiration Date Visits Re quested Visits Authorized [id number] 1 1 Encounter Details Date Type Department Care Team (Latest Contact Info) Description 05/08/2023 9:14 AM EDT - 05/22/2023 10:46 AM EDT Hospital Encounter Heart and Vascular Unit Level 4 [place] [address] Enrique Chua MD [facility] [place] [address] Juan Luis Gonzalez MD [facility] [place] [address] Radha Hollins MD [facility] [place] [address] Alirio Hudson MD S/P TAVR (transcatheter aortic valve replacement) (Primary Dx); Aortic valve stenosis, etiology of cardiac valve disease unspecified; Symptomatic severe aortic stenosis with low ejection fraction; Heart failure with reduced ejection fraction due to heart valve disease; Mild coronary artery disease by [facility] 11/09/2022; Mixed connective tissue disease; Neck [...] with PCP, Magdalena Acosta MD, or Primary Senior Dentist, Avis Mejia MD, in ~ 7-10 days. Patient to follow up with Advertising Dispatch Clerk, Dr. Antelmo Sharma, in 2 weeks with an EKG, Echo, CBC, and CMP. Patient to follow up with Nephrology, their office to arrange. Chjc-Aamrsp-cj interval: After initial 30 day follow-up appointment , all TAVR patients will follow-up again in one year with an echo. 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 Secondary Diagnoses: Active Hospital Problems Diagnosis S/P TAVR (transcatheter aortic valve replacement) Cardiogenic shock Symptomatic severe aortic stenosis with low ejection fraction Mild coronary artery disease by [facility] 11/09/2022 Heart failure with reduced [...] Tube Placement Right 05/18/2023 Laure Ricks PA [facility] INTERVENTIONL RAD PRG CATH PLMT LEFT HEART CATH & ARTS W/INJ & ANGIO IMG S&I N/A 11/09/2022 CORONARY ANGIOGRAPHY; W [facility],POSSIBLE PCI (WRVU 5.6) performed by Mario Alberto Escobedo MD at [facility] CATH LABS PRG COMBINED RIGHT & LEFT HEART CATH W/INJ L VENTRICULOGRAPHY, IMG S&I N/A 05/12/2023 COMBINED RIGHT & LEFT HEART CATH,INC INJ FOR L VENTRICULOGRAPHY (WRVU 5.99) performed by Antelmo Sharma MD at [facility] CATH LABS PRO AORTOPLAS FOR SUPRAVALV STEN N/A 09/21/2016 @AORTOPLASTY FOR SUPRAVALVULAR STENOSIS (WRVU 29.33) performed by Alriio Hudson MD at [facility] MAIN OR PRO REPLACE AORTIC VALVE (TAVR/FEDERICO)PERC FEMORAL ARTERY APPROACH 05/12/2023 @TRANSCATHETER AORTIC VALVE REPLACEMENT (TAVR), PERCUTANEOUS FEMORAL (WRVU 22.47) performed by Alirio Hudson MD at [facility] CATH LABS PRO REPLACEMENT PROSTHETIC AORTIC VALVE OPEN W CARDIOPULMONARY BYPASS HOMOGRF/STENT N/A 09/21/2016 @REPLACE AORTIC VALVE, OPEN, W\CPB, W\PROSTHETIC VALVE (WRVU 41.32) performed by Alirio Hudson MD at [facility] MAIN OR Prior To Admission Medications [...] Major Procedures/Operations: 05/12/23: Successful right transfemoral TAVR Iyyjb-fs-Dnibp with a 23 mm Lai 3 THV. Left coronary protection with left main MINNA. Hospital Course: #Severe prosthetic s/p valve in valve TF TAVR #Low coronary heights s/p left main stent for coronary protection #Type 2 NSTEMI, present on arrival, resolved #Acute decompensated HFrEF #Cardiogenic shock #EVANS / Cardiorenal syndrome Purnima Thacker was admitted to [facility] on 05/08/2023 via the Cardiology [...] TAVR and she was brought to the bed laborer the following morning where Drs. Alirio [...] if you have questions. Please call your Advertising Dispatch Clerk's office if you have any discharge or drainage from your procedural sites. Your Advertising Dispatch Clerk, Dr. Antelmo Sharma and/or the Restaurant Mgr may be reached at . Antibiotic prophylaxis: You will need to take antibiotics prior to many invasive tests and treatments, such as dental cleaning, which should be done every 6 months. Your primary care physician or your dentist can prescribe this medication. Please refer to the card with the [place] [employer] Guidelines for more information. You have been provided with a copy of this card. Please refer to the [place] [employer] Guidelines for more information. Good [...] should resume a low fat, low cholesterol, [place] [employer] Diet Driving: No restrictions. Shower/Bath: You may shower daily. No baths, soaking, or swimming for the first week. Wound care: Wash the sites daily with soap and rinse well, pat dry. Assess for any signs of infection such as increased redness, pain, warmth or drainage. Please call your chuck splitter's office if you have any discharge or drainage from your procedural sites. If there is a lot of swelling, apply mamta wraps during the day and remove at bedtime. Elevate your legs when you are sitting. Home oxygen therapy: N/A Follow up appointments: Please schedule a follow-up appointment with your PCP, Magdalena Acosta MD, or Primary Senior Dentist in ~ 7-10 days. You have a follow-up appointment with your Advertising Dispatch Clerk, Dr. Antelmo Sharma, in 2 weeks with an EKG, Echo, and labs prior to your appointment. You will need follow-up with Nephrology, their office will arrange. Gwym-Krelxk-fj interval: After initial 30 day follow-up appointment [...] AM Magdalena Peralta MD Rheumatology at [facility] Arrive at: [place] [facility] [address] [phone] 02/11/2024 2:00 PM Marek Bonilla MD Dermatology at [place] Arrive at: [facility] [address] [phone] Future Orders Complete By Expires Type and Screen Future Surgery, [facility] SAME DAY PROGRAM ONLY) [[id number] Custom] 05/11/2023 Process Instructions: This test is intended ONLY for patients with upcoming surgery for testing prior to the day of surgery obtained through the same day program (4V or SDP). For ALL OTHER PATIENTS, order a Type and Screen (AFH566) This order includes the physician order for an ABO Recheck if requested by the Blood Bank. Scheduling Instructions: Comments: Questions: Date of surgery: CBC (with Diff) [[id number] Custom] 06/05/2023 12/05/2023 Process Instructions: INCLUDES: WBC, RBC, Hgb, Hct, Platelets, RBC Indices and Differential Scheduling Instructions: Comments: Questions: Comprehensive metabolic panel (non-fasting) [LAB17 Custom] 06/05/2023 08/20/2023 Process Instructions: INCLUDES: Calcium, T Protein, Albumin, AST, ALT, Alk Phos, T Bili, BUN, Creat, GFR, Glucose, Lytes. Scheduling Instructions: Comments: Questions: Echocardiogram Transthoracic [58891 CPT(R)] 06/05/2023 12/05/2023 Process Instructions: Scheduling Instructions: Questions: Where will study be performed?: [facility] Clinics Does the patient have Congenital Heart Disease?: Does patient require sedation?: GA rationale: EKG 12 Lead [54837 CPT(R)] 06/05/2023 12/05/2023 Process Instructions: Scheduling Instructions: Questions: Which location will this be performed?: [place] Is a rhythm strip needed?: No [facility] Devices [EQ161 Custom] As directed Process Instructions: Scheduling Instructions: Questions: Device Needed: WALKER (E0143) Patient Height (cm): 154.9 cm (5' 0.98) Patient Weight: 75.4 kg (166 lb 3.2 oz) Diagnosis: Unsteady gait when walking Referral to Cardiac Rehab [SFX868 Custom] As directed Process Instructions: If no [...] VNA SERVICES PATIENT'S LOCATION: Purnima Thacker [address] [place] [phone] (home) Bobbin Coil Winder's Name: Self and brother Raymond In discussion with the attending physician, it is certified that this patient is under his/her careand that MD, or an DYE TANK TENDER, NURSE DISCHARGE, or PA who is working directly with him/her, had a kpqe-nw-qngo encounter that meets the physician shbz-zw-rhue encounter requirements with this patient on 05/22/2023. [...] for managing ADLs. HOME HEALTH CARE AGENCY: [facility]. [address] [place] [address] PHONE: [phone] FAX: [phone] Start of care: Ideally 24-48 hours after [...] 185 / [facility] [address] All VNA agencies which cover the area of patient's residence have been reviewed, either verbally joao writing, and patient has chosen the home health care agency noted. Questions: Disciplines Requested: Physical Therapy Occupational Therapy Discharge References/Attachments None Arrangements for VNA/home care: As above. (delete if no VNA) Signed: EKATERINA NAVARRETE [facility] Section of Cardiac Surgery Date: 05/22/2023 CC: Magdalena Acosta MD GuysMario Alberto MD [address] [place] [address] documented in this encounter Discharge Instructions * Patient Instructions* Vinod Juárez PA - 05/22/2023 9:32 AM EDT TAVR Discharge Instructions: Call your doctor if: You have a fever of greater than 101 degrees, shaking chills, if you develop redness or drainage from your procedure sites, or if you have questions. Please call your Advertising Dispatch Clerk's office if you have any discharge or drainage from your procedural sites. Your Advertising Dispatch Clerk, Dr. Antelmo Sharma and/or the Restaurant Mgr may be reached at . Antibiotic prophylaxis: You will need to take antibiotics prior to many invasive tests and treatments, such as dental cleaning, which should be done every 6 months. Your primary care physician or your dentist can prescribe this medication. Please refer to the card with the [place] [employer] Guidelines for more information. You have been provided with a copy of this card. Please refer to the [place] [employer] Guidelines for more information. Good [...] should resume a low fat, low cholesterol, [place] [employer] Diet Driving: No restrictions. Shower/Bath: You may shower daily. No baths, soaking, or swimming for the first week. Wound care: Wash the sites daily with soap and rinse well, pat dry. Assess for any signs of infection such as increased redness, pain, warmth or drainage. Please call your chuck splitter's office if you have any discharge or drainage from your procedural sites. If there is a lot of swelling, apply mamta wraps during the day and remove at bedtime. Elevate your legs when you are sitting. Home oxygen therapy: N/A Follow up appointments: Please schedule a follow-up appointment with your PCP, Magdalena Acosta MD, or Primary Senior Dentist in ~ 7-10 days. You have a follow-up appointment with your Advertising Dispatch Clerk, Dr. Antelmo Sharma, in 2 weeks with an EKG, Echo, and labs prior to your appointment. You will need follow-up with Nephrology, their office will arrange. Iipf-Zhwhmf-ki interval: After initial 30 day follow-up appointment [...] experiencing pain -05/11.). 30 tablet 5 09/25/2016 furosemide (Lasix) 20 mg tablet Take 1 [...] ins ( tef) Haven Ba, PT Pager: [phone] Physical Therapy Inpatient Rehabilitation Department * Nico [...] 0600 and on the weekends please page [phone]. * Jory Paniagua - 05/20/2023 3:52 PM [...] vomiting Last Bowel Movement: 05/20/23 Jory Paniagua Fiberglass Machine Operator * Rashid Tong, OT - 05/20/2023 [...] Tube Placement Right 05/18/2023 Laure Ricks PA [facility] INTERVENTIONL RAD PRG CATH PLMT LEFT HEART CATH & ARTS W/INJ & ANGIO IMG S&I N/A 11/09/2022 CORONARY ANGIOGRAPHY; W [facility],POSSIBLE PCI (WRVU 5.6) performed by Mario Alberto Escobedo MD at [facility] CATH LABS PRG COMBINED RIGHT & LEFT HEART CATH W/INJ L VENTRICULOGRAPHY, IMG S&I N/A 05/12/2023 COMBINED RIGHT & LEFT HEART CATH,INC INJ FOR L VENTRICULOGRAPHY (WRVU 5.99) performed by Antelmo Sharma MD at [facility] CATH LABS PRO AORTOPLAS FOR SUPRAVALV STEN N/A 09/21/2016 @AORTOPLASTY FOR SUPRAVALVULAR STENOSIS (WRVU 29.33) performed by Alirio Hudson MD at [facility] MAIN OR PRO REPLACE AORTIC VALVE (TAVR/FEDERICO)PERC FEMORAL ARTERY APPROACH 05/12/2023 @TRANSCATHETER AORTIC VALVE REPLACEMENT (TAVR), PERCUTANEOUS FEMORAL (WRVU 22.47) performed by Alirio Hudson MD at [facility] CATH LABS PRO REPLACEMENT PROSTHETIC AORTIC VALVE OPEN W CARDIOPULMONARY BYPASS HOMOGRF/STENT N/A 09/21/2016 @REPLACE AORTIC VALVE, OPEN, W\CPB, W\PROSTHETIC VALVE (WRVU 41.32) performed by Alirio Hudson MD at [facility] MAIN OR Social History: Patient lives alone. Home Setup: Pt lives on one level with tub shower and three steps to enter. DME: none used CHAIRPERSON ANESTHESIOLOGY Baseline ADL/Mobility: Independent with ADLs and IADLs. [...] WFL Vision & Perception: corrective lenses time cycle operator Communication: WFL Range of motion, strength, [...] Discharge planning. Total Minutes, Occupational Therapy: 28 ([id number]) OT Evaluation Code Rationale: Diagnosis & Pertinent Co-Morbidities affecting Plan of Care: see PMHx Occupational Profile & Client History: Brief Expanded Extensive x Assessment of Occupational Performance: 1-3 performance deficits 3-5 performance deficits x 5 + performance deficits Clinical Decision Making: Low Moderate High x Clinical decision making of moderate complexity using standardized patient assessment instrument and measurable assessment of functional outcome. Pager: [phone] TONG MIKE OT 05/20/2023 Occupational Therapy Rehabilitation [...] 0600 and on the weekends please page [phone]. * Rylie Rodriguez MD - 05/19/2023 3:59 [...] and plan. Cynthia Blackburn MD Nephrology Pager: [phone] * Diana Espino - 05/19/2023 1:49 PM EDT [place] Encounter Note Patient Name: Purnima Thacker : [id number] MR#: [id number] Admit Date: 05/08/2023 9:14 AM Hospital Day [...] as stated. Total Minutes, Physical Therapy: 38 ([phone]) Henrik Dale CANDY Navarrete Pager: [phone] Physical Therapy Inpatient Rehabilitation Department * Nico [...] 0600 and on the weekends please page [phone]. * Laure Ricks PA - 05/19/2023 7:56 [...] Ricks PA-C Interventional Radiology IR Team Pager [phone] * Consuelo Espinoza RN - 05/18/2023 4:13 PM EDT ANGIO NURSING DATABASE Name: Purnima Thacker Date of : 1955 AGE: 67 y.o. Address: [address] [place] [phone] (home) Mobile: No relevant phone numbers on [...] fraction I35.0 Mild coronary artery disease by [facility] 11/09/2022 I25.10 Heart failure with [...] and plan. Cynthia Blackburn MD Nephrology Pager: [phone] * Magdalena Puri, ANURAG - 05/18/2023 10:51 AM EDT Images from the original note were not included. [facility] [address] [place], [place] [address] STRUCTURAL HEART DISEASE CONSULTATION NOTE PRIMARY CARE [...] stenosis. She is now status post TAVR Guqhp-ud-Prbgq with a 23 mm Lai 3 THV 05/12/[address] Sharma. Preliminary findings: Successful right transfemoral TAVR Zgusd-lb-Usmoe with a 23 mm Lai 3 THV. [...] perforation. Interval Events: - 05/12 Transferred to [facility] post- TAVR for pressor/inotropic [...] ejection fraction Mild coronary artery disease by [facility] 11/09/2022 Heart failure with reduced [...] flush 5 mL 5 mL Intravenous Q8H Maar Serrano APRN 5 mL at 05/18/23 0831 [...] mg 81 mg Oral Daily Mara Serrano FIELD BROOMER 81 mg at 05/18/23 0826 ondansetron (pf) [...] stenosis. She is now status post TAVR Sfhoh-fn-Sbmwz with a 23 mm Lai 3 THV [...] Magdalena Puri APRN Structural Heart Team Pager [phone] Team Office Please see addendum by Dr. Sharma for final plan and recommendations Associated attestation - Antelmo Sharma MD - 05/19/2023 10:52 PM EDT I have reviewed Magdalena Puri APRN's above history and I agree with the details as written. The assessment and plan were formulated in discussion with me and I agree with them as documented. Antelmo Sharma MD Pager [phone] * Nico Palacios PA - 05/18/2023 8:13 [...] 0600 and on the weekends please page [phone]. * Loli Hernandez, PT - 05/17/2023 5:27 [...] plan as stated. Time IN / OUT: 2032-2940 Total Minutes, Physical Therapy: 54 Billing Code: te-sx2, te-f, gait LOLI HERNANDEZ PT Pager: [phone] Physical Therapy Inpatient Rehabilitation Department * Cynthia [...] Well controlled. Cynthia Blackburn MD Nephrology Pager: [phone] * Mara Serrano, FIELD BROOMER - 05/17/2023 8:26 AM EDT Cardiac Surgery [...] 0600 and on the weekends please page [phone]. * Guerda Del Valle - 05/16/2023 10:44 AM EDT Nutrition Services Note - Low Nutrition Acuity Purnima Thacker is a 67 y.o. female Reason for intervention: hospital day 9 Nutrition Plan: Continue diet order Encourage good PO Lasix and Zofran noted Added special serve: open containers Monitor weight Patient scheduled for a hospital day 9 nutrition evaluation. Clerk met with pt at bedside. Pt reports that her appetite and PO has much improved since admission. Denies nausea/vomiting or trouble chewing/swallowing. Clerk provided snack list but pt not interested in adding snacks at this time. Her only concern was that she is worried that she will eat too much which will cause too much pressure in her stomach. Clerk assured pt and suggested eating smaller but [...] Last Bowel Movement: 05/10/23 Guerda Del Valle Fiberglass Machine Operator * Vinod Juárez PA - 05/16/2023 [...] 0600 and on the weekends please page [phone]. * Michael Jeffers MD - 05/16/2023 8:11 AM EDT Images from the original note were not included. Hypertension-Nephrology Inpatient Follow-up Purnima Thacker [id number] 1955 ID: 67 y.o. old female seen [...] IRONSAT 12 (L) 05/16/2023 SFOLATE >20.0 07/03/2022 [id number] 07/03/2022 Lab Results Component Value Date [...] Dr. Ayoub. Please contact me at phone: [phone] or pager: [phone] with any questions. Michael Jeffers MD Nephrology [...] -Nephrology consulted, labs and renal US ordered -[place] removed, ambulated around the unit -bilateral pleural [...] 0600 and on the weekends please page [phone]. * Hortencia Cody MD - 05/15/2023 2:07 [...] not included. Hypertension-Nephrology Inpatient Follow-up Purnima Thacker [id number] 1955 ID: 67 y.o. old female seen [...] HGB 7.8 (L) 05/13/2023 SFOLATE >20.0 07/03/2022 [id number] 07/03/2022 Lab Results Component Value Date [...] Dr. Ayoub. Please contact me at phone: [phone] or pager: [phone] with any questions. Michael Jeffers MD Nephrology [...] outlined inthis evaluation. HAVEN BA, PT Pager: [phone] Physical Therapy Inpatient Rehabilitation Department Time IN / OUT: 0078-3222 Total time: Total Minutes, Physical Therapy: 30 [...] 0600 and on the weekends please page [phone]. * Antelmo Sharma MD - 05/14/2023 7:56 AM EDT Images from the original note were not included. [facility] [address] STRUCTURAL HEART DISEASE CONSULTATION NOTE PRIMARY CARE [...] stenosis. She is now status post TAVR Cllqb-ey-Uubeu with a 23 mm Lai 3 THV 05/12/[address] Sharma. Preliminary findings: Successful right transfemoral TAVR Uwpcp-vs-Gmmcv with a 23 mm Lai 3 THV. [...] ejection fraction Mild coronary artery disease by [facility] 11/09/2022 Heart failure with reduced [...] stenosis. She is now status post TAVR Qkmgp-xl-Xiwut with a 23 mm Lai 3 THV 05/12/[address] Sharma. Janet TAVR case notable for coronary LAD protective MINNA. Status post TAVR, the patient was transferred to [facility] for pressor and inotropic support. Pressors weaned overnight 05/12. Cardiac indices by thermodilution remained >3 with continued Milrinone 0.125 mcg/kg/min prior to PAC removal. EKG todayNSR with stable VT/QRS intervals. Hemoglobin slowly down-trending (8.2-> 7.8-> 7.2). [...] Dale ANURAG Kaplan Structural Heart Team Pager [phone] Team Office Please see addendum by Dr. [...] exposure. Nephrology consultationtoday. Antelmo Sharma MD Pager [phone] * Antelmo Cardenas RN - 05/14/2023 5:18 AM EDT Pt AOx4, complaining of mild/moderate generalized pain (states her Meloxicam is effective at home) currently refusing prn oxycodone. NAEON, hemodynamically stable on Milrinone, Maps >65, ST in [id number]'s down to NSR with frequent multifocal PVC's. [...] from the original note were not included. [facility] [address] [address] STRUCTURAL HEART DISEASE PROGRESS NOTE PRIMARY CARE PROVIDER: Magdalena Acosta MD REFERRING PROVIDER: Mario Alberto Chin REASON FOR CONSULTATION: Bioprosthetic aortic valve stenosis HISTORY OF PRESENT ILLNESS: Patient ID: Purnima Thackre is a 67 y.o. 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 She is now status post TAVR Oxebh-bf-Cvfov with a 23 mm Lai 3 THV 05/12/[address] Sharma. Preliminary findings: Successful right transfemoral TAVR Olzff-et-Vvcws with a 23 mm Lai 3 THV. [...] or perforation. Interval Events: - Transferred to [facility] post- TAVR for pressor/inotropic [...] ejection fraction Mild coronary artery disease by [facility] 11/09/2022 Heart failure with reduced [...] stenosis. She is now status post TAVR Jscwd-mt-Nvnsp with a 23 mm Lai 3 THV 05/12/[address] Sharma. Janet TAVR case notable for coronary LAD protective MINNA. Status post TAVR, the patient was transferred to [facility] for pressor and inotropic support. Pressors weaned overnight. Cardiac indices by thermodilution remain greater than 3 with continued Milrinone 0.125 mcg/kg/min. EKG today NSR with stable VT/QRS intervals. Hemoglobin 7.8 [...] Brody Kaplan APRN Structural Heart Team Pager [phone] Team Office Please see addendum by Dr. [...] essential tremor, and depression. 24h Events: From bed laborer for above procedure Extubated at ~1600 [...] soft b/l, no evidence of hematoma. Tubes/Lines/Drains: [place], RIJ, A-line, Art, PIV Assessment/Plan: 67 y.o. [...] 0600 and on the weekends please page [phone]. * Onelia Schwartz MD - 05/12/2023 1:44 [...] ejection fraction Mild coronary artery disease by [facility] 11/09/2022 Heart failure with reduced [...] FiO2 weaned to 40%. 1105: ABG 7.34/42/73/22 6353-1508: SBT performed and passed on these settings [...] PCP: Magdalena Acosta MD PCP phone number: [phone] Date of Admission: 05/08/2023 ( Hospital Day [...] 1447 PHART -- 7.34* 7.34* -- -- TCB1OLZ -- 30* 30* -- -- PO2ART -- 72* 81* -- -- MOM4NZQ -- 16.0* 15.7* -- -- LACTATEVEN 2.4* 2.7* 2.7* 4.8* 2.9* VBG (Venous Blood Gas) Recent Labs 05/12/23 0700 05/12/23 0318 05/12/2310505/11/23193905/11/23 1447 LACTATEVEN 2.4* 2.7* 2.7* 4.8* 2.9* Mixed Venous Sat Recent Labs 05/12/23 0508 05/12/23 0321 05/12/23 0114 05/12/23 0030 C4QTMO0 30.7 32.7 37.3 25.1 Objective: Vitals Last [...] first. Electronically signed by: ALIX RUVALCABA MD, [facility] ([phone]), at 05/10/2023 1:[address] Cardiac for [...] first. Electronically signed by: Cullen Narayanan MD, [facility] ([phone]), at 05/11/2023 4:[address] Angiogram Abdomen [...] first. Electronically signed by: Eileen Gomes MD, [facility] ([phone]), at 05/11/2023 2:42 PM XR Chest One [...] first. Electronically signed by: Will Rowe MD, [facility] ([phone]), at 05/11/2023 11:57 PM XR Chest One [...] first. Electronically signed by: Will Rowe MD, [facility] ([phone]), at 05/12/2023 3:16 AM Assessment & Plan: [...] and inotrope. She is planned for a tegzm-ra-yqwlo TAVR this morning, which should hopefully improve [...] MD, FACP, FACC Section of Cardiovascular Medicine [facility] Form [employer] Formsrf test technician [facility] at [facility] * Noreen Deutsch RN - [...] ejection fraction Mild coronary artery disease by [facility] 11/09/2022 Heart failure with reduced [...] 05/11/2023 4:11 PM EDT Reported off to JOB SPOTTER and pt transferred over in the bed for higher level of care. * Antelmo Sharma MD - 05/11/2023 9:45 AM EDT Images from the original note were not included. [place] [address] STRUCTURAL HEART DISEASE CONSULTATION NOTE PRIMARY CARE [...] who had been referred for possible TAVR ldekd-mb-lxknk evaluation. Her primary symptoms are of dyspnea [...] [facility]. 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) Result Value Ref Range Lactate WB 3.1 (H) 0.5 - 2.2 mmol/L Heparin (unfractionated) Level Result Value Ref Range Heparin UFH Level 0.46 IU/mL Lactate, whole blood, send to lab ([facility]) Result Value Ref Range Lactate [...] leads Confirmed by MD Harshil, Enrique Bell ([id number]) on 05/10/2023 8:11:46 AM Cardiac Cath 11/09/2022 [...] to decompensating HFrEF, she was transferred to [facility] this afternoon for further management. TAVR CT imaging support for adequate ileofemoral access. Given her acute deterioration today, will planfor RTF TAVR on 05/12/2023. Brody Kaplan ANURAG Structural Heart Disease Pager [phone] Please see addendum by Dr. Sharma for [...] signed and dated. Antelmo Sharma MD Pager [phone] * Harini Lance MD - 05/11/2023 6:06 AM EDT Images from the original note were not included. Cardiology Progress Note Patient info: Name: Purnima Thacker : 1955 PCP: Magdalena Acosta MD PCP phone number: [phone] Date of Admission: 05/08/2023 ( Hospital Day [...] first. Electronically signed by: ALIX RUVALCABA MD, [facility] ([phone]), at 05/10/2023 1:25 PM TTE: 05/08 -Left [...] 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) Mild coronary artery disease by [facility] 11/09/2022 Hyperlipidemia, unspecified NICOLAS (obstructive [...] PCP: Magdalena Acosta MD PCP phone number: [phone] Date of Admission: 05/08/2023 ( Hospital Day [...] 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) Mild coronary artery disease by [facility] 11/09/2022 Hyperlipidemia, unspecified NICOLAS (obstructive [...] PCP: Magdalena Acosta MD PCP phone number: [phone] Date of Admission: 05/08/2023 ( Hospital Day [...] Gas) No results found for: PHART, PO2ART, NFY7XQX, EZH4JBW Microbiology: Microbiology Results (Last 30 days) No [...] Diet: Daily Healthy Menu Choices/Cardiac diet ([facility]-Diet) Lines: Peripheral IV Line - Single Lumen [...] 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) Mild coronary artery disease by [facility] 11/09/2022 Hyperlipidemia, unspecified NICOLAS (obstructive [...] fraction I35.0 Mild coronary artery disease by [facility] 11/09/2022 I25.10 Heart failure with reduced ejection fraction due to heart valve disease I50.20, I38 Cardiogenic shock R57.0 S/P TAVR (transcatheter aortic valve replacement) Z95.2 Past Medical History: Diagnosis Date Anemia Past Surgical History: Procedure Laterality Date PRG CATH PLMT LEFT HEART CATH & ARTS W/INJ & ANGIO IMG S&I N/A 11/09/2022 CORONARY ANGIOGRAPHY; W [facility],POSSIBLE PCI (WRVU 5.6) performed by Mario Alberto Escobedo MD at [facility] CATH LABS PRO AORTOPLAS FOR SUPRAVALV STEN N/A 09/21/2016 @AORTOPLASTY FOR SUPRAVALVULAR STENOSIS (WRVU 29.33) performed by Alirio Hudson MD at [facility] MAIN OR PRO REPLACEMENT PROSTHETIC AORTIC VALVE OPEN W CARDIOPULMONARY BYPASS HOMOGRF/STENT N/A 09/21/2016 @REPLACE AORTIC VALVE, OPEN, W\CPB, W\PROSTHETIC VALVE (WRVU 41.32) performed by Alirio Hudson MD at [facility] MAIN OR Social History and Habits: [...] Verio test strips Strip USE DAILY OneTouch DelNarrative Science Plus Lancet 33 gauge Misc USE DAILY [...] fraction I35.0 Mild coronary artery disease by [facility] 11/09/2022 I25.10 Heart failure with reduced ejection fraction due to heart valve disease I50.20, I38 Cardiogenic shock R57.0 S/P TAVR (transcatheter aortic valve replacement) Z95.2 Past Medical History: Diagnosis Date Anemia Past Surgical History: Procedure Laterality Date PRG CATH PLMT LEFT HEART CATH & ARTS W/INJ & ANGIO IMG S&I N/A 11/09/2022 CORONARY ANGIOGRAPHY; W [facility],POSSIBLE PCI (WRVU 5.6) performed by Mario Alberto Escobedo MD at [facility] CATH LABS PRO AORTOPLAS FOR SUPRAVALV STEN N/A 09/21/2016 @AORTOPLASTY FOR SUPRAVALVULAR STENOSIS (WRVU 29.33) performed by Alirio Hudson MD at [facility] MAIN OR PRO REPLACEMENT PROSTHETIC AORTIC VALVE OPEN W CARDIOPULMONARY BYPASS HOMOGRF/STENT N/A 09/21/2016 @REPLACE AORTIC VALVE, OPEN, W\CPB, W\PROSTHETIC VALVE (WRVU 41.32) performed by Alirio Hudson MD at [facility] MAIN OR Social History and Habits: [...] Hgb 10.5 CMP - Cr 1.1 BNP 14910 HsTrop 1358 Lactate 1.6 D-dimer 1183 Interval [...] Code Status: Attempt Cardiopulmonary Resuscitation - Inpatient [facility] Roman Reid MD Internal Medicine PGY-1 Pager [phone], M1-S1 Service Associated attestation - Juan Luis Gonzalez MD - 05/08/2023 10:00 PM EDT Cardiology Attending Addendum Active Hospital Problems Diagnosis Symptomatic severe aortic stenosis with low ejection fraction Heart failure with reduced ejection fraction due to heart valve disease Mild coronary artery disease by [facility] 11/09/2022 Hyperlipidemia, unspecified History of [...] PCP: Magdalena Acosta MD PCP phone number: [phone] Date of Admission: 05/08/2023 ( Hospital Day [...] Hgb 10.5 CMP - Cr 1.1 BNP 64207 HsTrop 1358 Lactate 1.6 D-dimer 1183 Vasoactive [...] Diet: Daily Healthy Menu Choices/Cardiac diet ([facility]Diet) DVT Prophylaxis: heparin gtt GI Prophylaxis: none [...] remains HD stable, can transfer out of [facility]. -Structural Heart consult; will [...] to the planned procedure. Hand Hygiene: The turbine engine assembler did perform hand hygiene prior to arterial [...] Successful arterial line placement. Crispin Timmons MD Restaurant Mgr Associated attestation - Onelia Schwartz MD - [...] (flow was non-pulsatile) and appearance of blood. [place]-Marily catheter was placed and locked at 55 [...] information for follow-up [facility], [place] [address] [place] [address] Cardiac Rehab, [facility] [address] [place] [address] [facility] [address] [place] [address] Transportation: family or friend will provide *Brother [...] Type: *No Product type* / Secondary Insurance: [employer] [place] Prescription Coverage: Yes This plan was formulated with input from patient, family (please identify family/friend involved ifapplicable) and team. All are in agreement with plan. Aliza Martino MSN-Ed, RN ACM student teacher Office of Care Management Pager #[phone] * Plan of Care - Favian Mckeon [...] Chaudhary RN - 05/21/2023 4:46 PM EDTSummary: [facility] referral OFFICE OF CARE MANAGEMENT [...] Type: *No Product type* / Secondary Insurance: [employer] [place] Last Physical Therapy Recommendation: (Home with [...] planning needs. describing our affiliations within the [facility] and educate about their right to choose where referrals are sent. provide a list of Home Health Agencies / Durable Medical Equipment vendors which serve their preferred geographic area. They have requested referrals to: [facility] [address] [place] [address] Ortho Care Located @ [place], [place] Note routed to a Tooth Grinder who will communicate referrals to facilities and provide any required information. Transportation: family or friend will provide *Brother Raymond on Tuesday 05/22 at 1000 Barriers to discharge: Does not have home 22/02 assist available until tomorrow Tuesday 05/22 Plan going forward: Discharge home into the 22/02 home care of brother Raymond with [facility] and [facility] PT/OT services on Tuesday 05/22 [...] Attending: All Staff: Staff Role Juanita Almaguer Lens Examiner Laure Ricks PA Physician Astronomy Department Chair Magdalena Rodriguez dye colorist dyer Nurse Consuelo Espinoza, dye colorist dyer Nurse Post-operative diagnosis/Indication: Right pleural effusion Name [...] Type: *No Product type* / Secondary Insurance: [employer] [facility] Last Physical Therapy Recommendation: chcf facility, swing bed rehabilitation facility with to be determined Last Occupational Therapy Recommendation: with Plan for discharge is: [facility] Facility / Swing Outpatient Agency/Support Group Needs: None Agency Referrals: Based on discussions with the multi-disciplinary healthcare team, the patient would benefit from SNF / Swing level of care at discharge. I have met with the patient to: discuss discharge planning needs. provide the [facility], Office of Care Management letter from the Pc Tech pertaining to rehab referrals. provide a letter describing our affiliations within the [facility] and educate about their right to choose where referrals are sent. provide the CMS Star Quality Rating handout. review the different levels of rehab including SNF, swing, and acute. provide a list of facilities within their preferred geographic area. request that they provide at least three choices for referral. They have requested referrals to: [facility] [address] [place] [address] [facility]) [address] [place] [address] (Accepts pts only after exhausting all other local SNF options) [facility] ([facility]) ([facility]) [address] [place] [address] PHONE: [phone] FAX: [phone] [facility] [place] ([facility]) [facility]) [address] [place] [address] PHONE: [phone] FAX: [phone] Note routed to a Tooth Grinder who will communicate referrals to facilities and [...] RN - 05/17/2023 10:[address] [facility] CARDIAC REHABILITATION Purnima Thacker was seen today [...] from the original note were not included. [facility] NEPHROLOGY/HYPERTENSION CONSULT NOTE PATIENT: Purnima Thacker [...] in her course. She ultimately underwent a qajvq-dh-nkmtn procedure on and tolerated it well (see [...] 1423 05/12/23 1105 PHART 7.39 7.37 7.34* UMV9KQV 33* 36 42 PO2ART 101 102 73* PUA6XEF 19.5* 20.4 22.1 LACTATEVEN 1.5 1.8 2.8* JVB8ZZF 40 40 40 PFRATIOART2 252 255 182 VBG (Venous Blood Gas) Recent Labs 05/12/23 1557 05/12/23 1423 05/12/23 1105 LACTATEVEN 1.5 1.8 2.8* Mixed Venous Sat Recent Labs 05/12/23 1425 05/12/23 0508 05/12/23 0321 C8TXXG0 59.9 30.7 32.7 LFT's: Recent Labs 05/14/23 0110 05/13/23 0115 05/12/23 0600 BILITOT 0.4 0.5 0.9 BILIDIR -- 0.3 -- ALBUMIN 3.6 3.0* 3.5 ALKPHOS 86 85 100 ALT 437* 903* 1,174* AST 319* 792* 1,435* No results found for: UPROTCREAT No results found for: TPROTEINPEP, ALBELECT No results found for: MICROALBUR, GLUS49XOG No results found for: HA1C Lab Results Component Value Date CALCIUM 8.5 05/14/2023 PHOS 4.7 (H) 05/08/2023 No results found for: 25OHVITD MICROBIOLOGY: ProcedureComponentValueUnitsDate/TimeUrine culture [[id number]]Collected: 05/11/231921Lab Status: Final resultSpecimen: Clean Catch UrineUpdated: [...] consulted for assessment if this patient needs CONTRACT IMPLEMENTATION ANALYST. Atthis time, we can likely hold off on CONTRACT IMPLEMENTATION ANALYST. Her volume status appears sufficient and her metabolic kanwal angements with mild acidosis is not too profound. Patient does not have significant uremic symptoms. We can hold off for today, but the patient is a high risk candidate for needing CONTRACT IMPLEMENTATION ANALYST in future daysespecially if her Cr curve trends the direction it is for the next several days. S/p Hwltw-bd-Xpmwq TF TAVR: Management per cardiology. On milrinone gtt. PLAN: - Please obtain following diagnostics: renal US, urinalysis, urine prot/Cr ratio, urine albumin/Cr ratio, CK, uric acid, serum osmol, daily VBGs - No acute indications for CONTRACT IMPLEMENTATION ANALYST/dialysis. We will keep close eye on Cr trend, volume status, and metabolics to ensure patient still does not need CONTRACT IMPLEMENTATION ANALYST as she ensues intrinsic renal recovery - [...] M.H.A., M.A. PGY-V Nephrology-Hypertension Fellow Page # [phone] [facility] [address] 2nd floor, Log Cutter [address] [place] [address] * Care Management - Mairo Alberto Olmos RN - 05/13/2023 10:23 AM [...] for a TAVR at 730. Returned to [facility] at 0945. Was intubated in the bed laborer due to agitation. Maintained bedrest for [...] Operative Note Patient Name: Purnima Thacker : [id number] MR#: [id number] Case Date: 05/12/2023 Surgeon: Surgeon(s) and Role: [...] procedure Note: Patient Name: Purnima Thacker : [id number] MR#: [id number] Case Date: 05/12/2023 Operators Surgeon: Surgeon(s) and [...] main with 4.0 x 30 mm Resolute [place] Drug Eluting Stent Perclose x1 + Angio-seal 8 Fr x1, RFA Manual pressure, LFA Manual pressure, LFV Endotracheal intubation (performed by cardiac anesthesia) Preliminary findings: Successful right transfemoral TAVR Kdkpi-fg-Dqyru with a 23 mm Lai 3 THV. [...] MD, M.Sc. Structural Heart Disease Fellow Pager :[phone] Antelmo Sharma MD Pager [phone] * Op Note - Alirio Hudson MD - 05/12/2023 7:37 AM EDT Preop Diagnosis: Severe aortic stenosis, symptomatic. Postop Diagnosis: Same. Procedure: Transfemoral TAVR procedure with 23mm valve. Surgeon: Alirio Hudson M.D. Senior Dentist: Danny CULP Procedure: The patient was taken to the bed laborer. The patient had monitored anesthesia care. 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 Smoking - never [...] from the original note were not included. [facility] [place] [address] STRUCTURAL HEART DISEASE CONSULTATION NOTE PRIMARY CARE [...] who had been referred for possible TAVR pqcxa-cr-fihwc evaluation. Her primary symptoms are of dyspnea [...] [facility]. 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) Result Value Ref Range Lactate [...] leads Confirmed by MD Harshil, Enrique Bell ([id number]) on 05/10/2023 8:11:46 AM Assessment and Plan: [...] Antelmo Sharma MD Structural Heart Disease Pager [phone] * Plan of Care - Sarahi Nice RN - 05/10/2023 3:55 AM EDTSumavis: VALDO Note and Care Plan Sarahi Nice RN assumed care of pt at time of their arrival to room 362 from [facility]. Pt voices shortness of [...] care in [place] must abide by [place] law. The hierarchy [...] (i) The agent with financial power of senior trial attorney or a conservator appointed in accordance [...] Current DME: none Home Address confirmed as: [address] [place] [id number] Social & Family Supports: All names listed [...] Type: *No Product type* / Secondary Insurance: [facility] [place] ONLY if patient has Medicare A&B - Does this patient have secondary insurance?: Yes ; Prescription Coverage: Yes Preferred Pharmacy: updated to [facility] Status: Patient is a : No Primary Care Provider confirmed: Magdalena Acosta MD [phone] Patient/Caregiver Goals of Treatment: Potential Needs for [...] of a 2 story home with [address] [facility]. Patient is independent with ADL's at [...] of care planning. Alie Bradshaw RN, CM Pager-[phone] * Plan of Care - Emily Lucero [...] [facility] Hematology Oncology [address] [place] [address] 05/12/2024 10:00 AM EDT Office Visit [place]ology [place] [address] Markel Borjas MD [facility] [address] HEMATOLOGY [place] [address] 03/01/2025 4:15 PM EDT Office Visit Dermatology at [place] [address] [place] [id number] Marek Bonilla MD [address] [place] [address] Scheduled Referrals Name Type Priority Associated Diagnoses [...] Heart Cath W/Inj L Ventriculography, Img S&I ([id number]) 05/12/2023 7:37 AM EDT Aortic valve stenosis, [...] COLOR DOPP (07/08/2023 12:15 PM EST) Pathologist [facility] EF 20 HEARTBe[employer] capital [employer] SYSTEM Anatomical Region Laterality Modality Cardiac Other 07/08/2023 10:3 1 AM EST Narrative 07/08/2023 12:26 PM EST [address] [place] [id number] ? Echocardiogram Report Name: PURNIMA THACKER ?Study Date: 07/08/2023 10:31 AMBP: 118/60 mmHg ? Patient Location: : 1955 ? Height: 155 cm ? Account: [id number] Age: 67 yrs ? Weight: 74 kg Gender: Female ?BSA: 1.7 m2 Ordering Physician: ALIRIO HUDSON Referring Physician: VINOD JUÁREZ Performed By: Felicia Norris RDCS Reason For Study: S/P TAVR Exam Location: [facility]. Interpretation Summary Left ventricular [...] no significant change (post-procedure). Procedure Limited - 11986. Doppler - 99211. Color Doppler - 82837. Satisfactory quality. This study is limited because [...] Note Lee Kincaid MD - 07/08/2023 [address] [place] [address] Echocardiogram Report Name: PURNIMA THACKER Study Date: 0:31 AMBP: 118/60 mmHg Patient Location: : 1955 Height: 155 cm Account: [id number] Age: 67 yrs Weight: 74 kg Gender: Female BSA: 1.7 m2 Ordering Physician: ALIRIO HUDSON Referring Physician: VINOD JUÁREZ Performed By: Felicia Norris RDCS Reason For Study: S/P TAVR Exam Location: [facility]. Interpretation Summary Left ventricular [...] is nosignificant change (post-procedure). Procedure Limited - 08805. Doppler - 65510. Color Doppler - 08662. Satisfactoryquality. This study is limited because of [...] Glucose 93 65 - 199 mg/dL [facility] Comment:Diabetes: >=200 mg/d L plus symptoms Blood Urea Nitrogen 19(H) 8 - 18 mg/dL [facility] Creatinine 0.81 0.70 - 1.20 mg/dL [facility] Sodium 142 135 - 145 mmol/L [facility] Potassium 3.8 3.5 - 5.0 mmol/L [facility] Comment: Please note: ??Patients with WBC >100,000 may have falsely elevated Potassium levels. ??For accurate Potassium quantification in these patients send serum separator tube (gold top) for subsequent determinations. ??Contact the Clinical Chemistry Laboratory if there are any questions. Chloride 104 98 - 107 mmol/L [facility] Carbon Dioxide 26 22 - 31 mmol/L [facility] Anion Gap 12 5 - 15 mmol/L [facility] Calcium 10.2 8.5 - 10.5 mg/dL [facility] Protein, Total 7.4 6.1 - 8.0 g/dL [facility] Albumin 4.1 3.2 - 5.2 g/dL [facility] Aspartate Aminotransferase 24 0 - 30 unit/L [facility] Alanine Aminotransferase 12 0 - 30 unit/L [facility] Alkaline Phosphatase 93 35 - 105 unit/L [facility] Bilirubin, Total 0.3 0.2 - 1.3 mg/dL [facility] Est Glomerular Filtration Rate 80 >=60 mL/min/1. 73 m?? [facility] Comment: This patient's estimated [...] AT [place] Co de Phone Number [facility] [place] [address] * (ABNORMAL) Basic Metabolic Panel (non-fasting) (05/22/2023 3:57 AM EDT) Pathologist [facility] Glucose 88 65 - 199 mg/dL [facility] Comment:Diabetes: >=200 mg/d L plus symptoms Blood Urea Nitrogen 21(H) 8 - 18 mg/dL [facility] Creatinine 0.69(L) 0.70 - 1.20 mg/dL [facility] Sodium 136 135 - 145 mmol/L [facility] Potassium 3.6 3.5 - 5.0 mmol/L [facility] Comment: Please note: ??Patients with WBC >100,000 may have falsely elevated Potassium levels. ??For accurate Potassium quantification in these patients send serum separator tube (gold top) for subsequent determinations. ??Contact the Clinical Chemistry Laboratory if there are any questions. Chloride 102 98 - 107 mmol/L [facility] Carbon Dioxide 23 22 - 31 mmol/L [facility] Anion Gap 11 5 - 15 mmol/L [facility] Calcium 8.6 8.5 - 10.5 mg/dL [facility] Est Glomerular Filtration Rate 95 >=60 mL/min/1. 73 m?? [facility] Comment: This patient's estimated [...] Mara Maggie OSBORN CHEMISTRY ORDERABL ES [facility] [place] [address] * (ABNORMAL) Basic Metabolic Panel (non-fasting) (05/21/2023 5:06 AM EDT) Pathologist [facility] Glucose 87 65 - 199 mg/dL [facility] Comment:Diabetes: >=200 mg/d L plus symptoms Blood Urea Nitrogen 25(H) 8 - 18 mg/dL [facility] Creatinine 0.84 0.70 - 1.20 mg/dL [facility] Sodium 136 135 - 145 mmol/L [facility] Potassium 3.6 3.5 - 5.0 mmol/L [facility] Comment: Please note: ??Patients with WBC >100,000 may have falsely elevated Potassium levels. ??For accurate Potassium quantification in these patients send serum separator tube (gold top) for subsequent determinations. ??Contact the Clinical Chemistry Laboratory if there are any questions. Chloride 102 98 - 107 mmol/L [facility] Carbon Dioxide 26 22 - 31 mmol/L [facility] Anion Gap 8 5 - 15 mmol/L [facility] Calcium 8.9 8.5 - 10.5 mg/dL [facility] Est Glomerular Filtration Rate 76 >=60 mL/min/1. 73 m?? [facility] Comment: This patient's estimated [...] Comment Spec In Lab [facility] FIELD BROOMER CHEMISTRY ORDERABL ES Performing Organization Address [facility] Co de Phone Number [facility] [place] [address] * Lavender Tube HOLD (05/20/2023 2:52 AM EDT) Lavender Hold Sample in lab. [facility] Blood Venous Draw / Unknown 05/20/2023 2:52 AM EDT 05/20/2023 3:04 AM EDT [facility] FIELD BROOMER HEMATOLOGY ORDERAB LES Performing Organization Address [facility] Co de Phone Number [facility] [place] [address] * (ABNORMAL) Basic Metabolic Panel (non-fasting) (05/20/2023 2:52 AM EDT) Glucose 152 65 - 199 mg/dL [facility] Comment:Diabetes: >=200 mg/d L plus symptoms Blood Urea Nitrogen 33(H) 8 - 18 mg/dL [facility] Creatinine 0.82 0.70 - 1.20 mg/dL [facility] Sodium 137 135 - 145 mmol/L [facility] Potassium 3.7 3.5 - 5.0 mmol/L [facility] Comment: Please note: ??Patients with WBC >100,000 may have falsely elevated Potassium levels. ??For accurate Potassium quantification in these patients send serum separator tube (gold top) for subsequent determinations. ??Contact the Clinical Chemistry Laboratory if there are any questions. Chloride 99 98 - 107 mmol/L [facility] Carbon Dioxide 22 22 - 31 mmol/L [facility] Anion Gap 16(H) 5 - 15 mmol/L [facility] Calcium 9.0 8.5 - 10.5 mg/dL [facility] Est Glomerular Filtration Rate 78 >=60 mL/min/1. 73 m?? [facility] Comment: This patient's estimated [...] Agency Comment Spec In Lab Mara [place] FIELD BROOMER CHEMISTRY ORDERABL ES Performing Organization Address [facility] Co de Phone Number [facility] [place] [address] * (ABNORMAL) Potassium (05/20/2023 2:52 AM EDT) [facility] Signature Potassium 3.4(L) 3.5 - 5.0 mmol/L [facility] Comment: Please note: ??Patients with WBC >100,000 may have falsely elevated Potassium levels. ??For accurate Potassium quantification in these patients send serum separator tube (gold top) for subsequent determinations. ??Contact the Clinical Chemistry Laboratory if there are any questions. Blood 05/20/2023 2:52 AM EDT 05/20/2023 3:03 AM EDT Narrative Resulting Agency Comment Spec In Lab Mara [place] FIELD BROOMER CHEMISTRY ORDERABL ES Performing Organization Address City/[facility] Co de Phone Number [facility] [place] [address] * XR Chest PA & Lateral (Generic) [...] ? Electronically signed by: Chyna Johnson MD, [facility] ??([phone]), at 05/19/2023 2:19 PM Narrative 05/19/2023 2:19 [...] first. Electronically signed by: Chyna Johnson MD, [facility]([phone]), at 05/19/2023 2:19 PM Alirio Hudson MD IMG DX ORDERABLES * (ABNORMAL) Basic Metabolic Panel (non-fasting) (05/19/2023 5:49 AM EDT) Glucose 93 65 - 199 mg/dL [facility] Comment:Diabetes: >=200 mg/d L plus symptoms Blood Urea Nitrogen 45(H) 8 - 18 mg/dL [facility] Creatinine 1.02 0.70 - 1.20 mg/dL [facility] Sodium 138 135 - 145 mmol/L [facility] Potassium 3.9 3.5 - 5.0 mmol/L [facility] Comment: Please note: ??Patients with WBC >100,000 may have falsely elevated Potassium levels. ??For accurate Potassium quantification in these patients send serum separator tube (gold top) for subsequent determinations. ??Contact the Clinical Chemistry Laboratory if there are any questions. Chloride 102 98 - 107 mmol/L [facility] Carbon Dioxide 26 22 - 31 mmol/L [facility] Anion Gap 10 5 - 15 mmol/L [facility] Calcium 9.7 8.5 - 10.5 mg/dL [facility] Est Glomerular Filtration Rate 60 >=60 mL/min/1. 73 m?? [facility] Comment: This patient's estimated [...] Agency Comment Spec In Lab Mara Serrano FIELD [employer] [address] * IR Chest Tube Placement Right (05/18/2023 [...] Glucose 95 65 - 199 mg/dL [facility] Comment:Diabetes: >=200 mg/d L plus symptoms Blood Urea Nitrogen 71(H) 8 - 18 mg/dL [facility] Comment:result rechecked-[facility] Creatinine 1.64(H) 0.70 - 1.20 mg/dL [facility] Comment:result rechecked-[facility] Sodium 137 135 - 145 mmol/L [facility] Potassium 3.7 3.5 - 5.0 mmol/L [facility] Comment: Please note: ??Patients with WBC >100,000 may have falsely elevated Potassium levels. ??For accurate Potassium quantification in these patients send serum separator tube (gold top) for subsequent determinations. ??Contact the Clinical Chemistry Laboratory if there are any questions. Chloride 100 98 - 107 mmol/L [facility] Carbon Dioxide 24 22 - 31 mmol/L [facility] Anion Gap 13 5 - 15 mmol/L [facility] Calcium 9.7 8.5 - 10.5 mg/dL [facility] Est Glomerular Filtration Rate 34(L) >=60 mL/min/1. 73 m?? [facility] Comment: This patient's estimated [...] Agency Comment Spec In Lab Mara Serrano FIELD BROOMER CHEMISTRY ORDERABL ES [facility] [place] [address] * XR Chest PA & Lateral (Generic) [...] ? Electronically signed by: Ghassan Reyes MD, Rad[facility] [place] ??([phone]), at 05/17/2023 11:46 AM Narrative 05/17/2023 11:46 [...] first. Electronically signed by: Ghassan Reyes MD, [facility]([phone]), at 05/17/2023 11:46 AM Ailrio Hudson MD IMG DX ORDERABLES * (ABNORMAL) Comprehensive metabolic panel (non-fasting) (05/17/2023 4:35 AM EDT) Glucose 89 65 - 199 mg/dL [facility] Comment:Diabetes: >=200 mg/d L plus symptoms Blood Urea Nitrogen 97(H) 8 - 18 mg/dL [facility] Creatinine 2.97(H) 0.70 - 1.20 mg/dL [facility] Comment:result rechecked-NINA Sodium 135 135 - 145 mmol/L [facility] Potassium 4.1 3.5 - 5.0 mmol/L [facility] Comment: Please note: ??Patients with WBC >100,000 may have falsely elevated Potassium levels. ??For accurate Potassium quantification in these patients send serum separator tube (gold top) for subsequent determinations. ??Contact the Clinical Chemistry Laboratory if there are any questions. Chloride 97(L) 98 - 107 mmol/L [facility] Carbon Dioxide 22 22 - 31 mmol/L [facility] Anion Gap 16(H) 5 - 15 mmol/L [facility] Calcium 9.6 8.5 - 10.5 mg/dL [facility] Protein, Total 6.5 6.1 - 8.0 g/dL [facility] Albumin 3.7 3.2 - 5.2 g/dL [facility] Aspartate Aminotransferase 58(H) 0 - 30 unit/L [facility] Alanine Aminotransferase 66(H) 0 - 30 unit/L [facility] Alkaline Phosphatase 86 35 - 105 unit/L [facility] Bilirubin, Total 0.6 0.2 - 1.3 mg/dL [facility] Est Glomerular Filtration Rate 17(L) >=60 mL/min/1. 73 m?? [facility] Comment: This patient's estimated [...] Alirio Hudson MD CHEMISTRY ORDERABLE S [facility] [place] [address] * Potassium (05/16/2023 11:15 PM EDT) Potassium 3.7 3.5 - 5.0 mmol/L [facility] Comment: Please note: ??Patients [...] CHEMISTRY ORDERABLE S Performing Organization Address [facility]/ZIP Co de Phone Number [facility] [place] [address] * Magnesium (05/16/2023 5:22 PM EDT) Pathologist [facility] Magnesium 0.96 0.69 - 1.07 mmol/L [facility] Blood 05/16/2023 5:22 PM EDT 05/16/2023 5:27 PM EDT Narrative Resulting Agency Comment Spec In Lab Alirio uHdson MD CHEMISTRY ORDERABLE S Performing Organization Address [facility] Co de Phone Number [facility] [place] [address] * (ABNORMAL) Basic Metabolic Panel (non-fasting) (05/16/2023 5:22 PM EDT) Pathologist [facility] Glucose 106 65 - 199 mg/dL [facility] Comment:Diabetes: >=200 mg/d L plus symptoms Blood Urea Nitrogen 103(H) 8 - 18 mg/dL [facility] Creatinine 3.91(H) 0.70 - 1.20 mg/dL [facility] Comment:result rechecked-imm Sodium 132(L) 135 - 145 mmol/L [facility] Potassium 3.6 3.5 - 5.0 mmol/L [facility] Comment: Please note: ??Patients with WBC >100,000 may have falsely elevated Potassium levels. ??For accurate Potassium quantification in these patients send serum separator tube (gold top) for subsequent determinations. ??Contact the Clinical Chemistry Laboratory if there are any questions. Chloride 92(L) 98 - 107 mmol/L [facility] Carbon Dioxide 22 22 - 31 mmol/L [facility] Anion Gap 18(H) 5 - 15 mmol/L [facility] Calcium 9.7 8.5 - 10.5 mg/dL [facility] Est Glomerular Filtration Rate 12(L) >=60 mL/min/1. 73 m?? [facility] Comment: This patient's estimated [...] MD CHEMISTRY ORDERABLE S Performing Organization Address City/[facility]/ZIP Co de Phone Number [facility] [place] [address] * (ABNORMAL) Potassium (05/16/2023 11:43 AM EDT) Potassium 3.3(L) 3.5 - 5.0 mmol/L [facility] Comment: Please note: ??Patients [...] MD CHEMISTRY ORDERABLE S Performing Organization Address City/[facility]/ZIP Co de Phone Number [facility] [place] [address] * (ABNORMAL) Ferritin (05/16/2023 4:41 AM EDT) Pathologist [facility] Ferritin 1,813(H) 30 - 400 ng/mL [facility] Comment: Pediatric reference ranges not verified at [facility], interpret with caution. Reference ranges for females greater than 50 years of age approach values for men, i.e., 30-400 ng/mL. Blood 05/16/2023 4:41 AM EDT 05/16/2023 4:54 AM EDT Narrative Resulting Agency Comment Spec In Lab Kristopher Ayoub MD CHEMISTRY ORDERABLES [facility] [place] [address] * (ABNORMAL) PTH (05/16/2023 4:41 AM EDT) [facility] Parathyroid Hormone 120(H) 15 - 65 pg/mL [facility] Blood 05/16/2023 4:41 AM EDT 05/16/2023 4:54 AM EDT Narrative Resulting Agency Comment Spec In Lab Kristopher Ayoub MD CHEMISTRY ORDERABLES [facility] [place] [address] * Vitamin D, 25-Hydroxy (05/16/2023 4:41 AM EDT) [facility] Vitamin D Total 25 OH 33 21 - 100 ng/mL [facility] Vit D Interp Sufficient [facility] Blood 05/16/2023 4:41 AM EDT 05/16/2023 4:54 AM EDT Narrative Resulting Agency Comment Spec In Lab Kristopher Ayoub MD CHEMISTRY ORDERABLES [facility] [place] [address] * (ABNORMAL) Blood Gas Venous ([facility]) (05/16/2023 4:22 AM EDT) pH, Venous 7.41 7.32 - 7.42 [facility] PCO2, Venous 32(L) 41 - 51 mmHg [facility] PO2, Venous 73(H) 25 - 40 mmHg [facility] Bicarbonate, Venous 19.6 mmol/L [facility] Base Excess, Venous -5.1 mmol/L [facility] Hgb Blood Gas 9.7(L) 11.7 - 15.5 g/dL [facility] Oxyhemoglobin, Venous 92.8 % [facility] Carboxyhemoglob in, Venous 0.1 % [facility] Comment: Nonsmokers: 0.5-1.5% COHB Smokers: Variable, but usually less than 10% Toxic: 20-30% COHB Lethal: Greater than 60% COHB Methemoglobin, Venous 0.3 <=1.5 % [facility] Na Whole Blood 130(L) 135 - 145 mmol/L [facility] K Whole Blood 3.7 3.5 - 5.0 mmol/L [facility] Comment: Please note: Patients with WBC >100,000 may have falsely elevated Potassium levels. Contact the Clinical Chemistry Laboratory if there are any questions. ICa Whole Blood 1.15 1.15 - 1.33 mmol/L [facility] Comment: Note: ??Total bilirubin higher than 20 mg/dL may lead to falsely low ionized calcium. CL Whole Blood 95(L) 98 - 107 mmol/L [facility] Gluc Whole Bld 82 65 - 199 mg/dL [facility] Comment:Diabetes: >=200 mg/d L plus symptoms Lactate WB 1.1 0.5 - 2.2 mmol/L [facility] Blood Gas Source Venous [facility] Blood Venous Draw / Unknown 05/16/2023 4:22 AM EDT 05/16/2023 4:31 AM EDT Narrative Resulting Agency Comment Spec In Lab Bonita TOBAR CHEMISTRY ORDERABLES [facility] [place] [address] * (ABNORMAL) Differential, Automated (05/16/2023 4:20 AM EDT) Neutrophil % 84.1 % [facility] Neutrophil Absolute 6.22(H) 1.70 - 6.10 x10(3)/mc L [facility] Lymph % 5.8 % [facility] Lymphocytes Abs 0.4(L) 0.9 - 3.2 x10(3)/mc L [facility] Monocyte % 8.8 % [facility] Monocyte Abs 0.6 0.3 - 0.9 x10(3)/ L [facility] Eos % 0.4 % [facility] Eosinophils Abs 0.0 0.0 - 0.4 x10(3)/mc L [facility] Basophil % 0.0 % [facility] Baso Absolute 0.0 0.0 - 0.1 x10(3)/ L [facility] Immature Gran % 0.90 % [facility] Comment: Immature granulocytes(IG's)percentage and absolute count will include metamyelocytes, myelocytes, and promyelocytes. Blood smears from CBCs yielding IG's will be scanned manually for concordance. If this scan disagrees with the automated IG or if promyelocytes are noted, a manual differential will be performed. Immature Gran Absolute 0.07(H) 0.00 - 0.04 x10(3)/ L [facility] Blood 05/16/2023 4:20 AM EDT 05/16/2023 4:29 AM EDT Narrative Resulting Agency Comment Spec In Lab James Agustin MD HEMATOLOGY ORDER JODIE [facility] [place] [address] * (ABNORMAL) Hemogram (05/16/2023 4:20 AM EDT) White Blood Cell 7.4 4.0 - 9.5 x10(3)/mc L [facility] Red Blood Cell 2.40(L) 4.00 - 5.21 x10(6)/mc L [facility] Hemoglobin 7.8(L) 11.7 - 15.5 g/dL [facility] Hematocrit 22.5(L) 35.7 - 45.8 % [facility] Mean Cell Volume 93.8 82.6 - 94.4 fL [facility] Mean Cell Hemoglobin 32.5(H) 27.1 - 32.0 pg [facility] Mean Cell Hemoglobin Concentration 34.7 31.7 - 35.0 g/dL [facility] Platelet 120(L) 145 - 357 x10(3)/mc L [facility] RDW Standard Deviation 42.9 37.0 - 46.0 fL [facility] RDW coefficient of variation 12.9 11.5 - 14.1 % [facility] Mean Platelet Volume 11.3 7.6 - 12.9 fL [facility] NRBC% auto 0.7 % [facility] NRBC Absolute 0.050(H) 0.000 - 0.000 x10(3)/ L [facility] Blood 05/16/2023 4:20 AM EDT 05/16/2023 4:29 AM EDT Narrative Resulting Agency Comment Spec In Lab James Agustin MD HEMATOLOGY ORDER JODIE [facility] [place] [address] * (ABNORMAL) Basic Metabolic Panel (non-fasting) (05/16/2023 4:20 AM EDT) Glucose 89 65 - 199 mg/dL [facility] Comment:Diabetes: >=200 mg/d L plus symptoms Blood Urea Nitrogen 108(H) 8 - 18 mg/dL [facility] Creatinine 4.74(H) 0.70 - 1.20 mg/dL [facility] Comment:result rechecked-[facility] Sodium 132(L) 135 - 145 mmol/L [facility] Potassium 3.9 3.5 - 5.0 mmol/L [facility] Comment: Please note: ??Patients with WBC >100,000 may have falsely elevated Potassium levels. ??For accurate Potassium quantification in these patients send serum separator tube (gold top) for subsequent determinations. ??Contact the Clinical Chemistry Laboratory if there are any questions. Chloride 95(L) 98 - 107 mmol/L [facility] Carbon Dioxide 18(L) 22 - 31 mmol/L [facility] Anion Gap 19(H) 5 - 15 mmol/L [facility] Calcium 9.2 8.5 - 10.5 mg/dL [facility] Est Glomerular Filtration Rate 10(L) >=60 mL/min/1. 73 m?? [facility] Comment: This patient's estimated [...] MD CHEMISTRY ORDERABLE S Performing Organization Address City/[facility]/ZIP Co de Phone Number [facility] [place] [address] * (ABNORMAL) Iron and TIBC (05/16/2023 4:20 AM EDT) Iron 31 30 - 150 mcg/dL [facility] TIBC 259 250 - 450 mcg/dL [facility] Iron Saturation 12(L) 20 - 50 % [facility] Blood 05/16/2023 4:20 AM EDT 05/16/2023 4:29 AM EDT Narrative Resulting Agency Comment Spec In Lab Kristopher Ayoub MD CHEMISTRY ORDERABLES [facility] [place] [address] * (ABNORMAL) Basic Metabolic Panel (non-fasting) (05/15/2023 12:50 AM EDT) Glucose 101 65 - 199 mg/dL [facility] Comment:Diabetes: >=200 mg/d L plus symptoms Blood Urea Nitrogen 109(H) 8 - 18 mg/dL [facility] Creatinine 5.62(H) 0.70 - 1.20 mg/dL [facility] Comment:result rechecked-KS Sodium 131(L) 135 - 145 mmol/L [facility] Comment:result rechecked-KS Potassium 3.7 3.5 - 5.0 mmol/L [facility] Comment: result rechecked-KS Please note: ??Patients with WBC >100,000 may have falsely elevated Potassium levels. ??For accurate Potassium quantification in these patients send serum separator tube (gold top) for subsequent determinations. ??Contact the Clinical Chemistry Laboratory if there are any questions. Chloride 92(L) 98 - 107 mmol/L [facility] Comment:result rechecked-KS Carbon Dioxide 18(L) 22 - 31 mmol/L [facility] Comment:result rechecked-KS Anion Gap 21(H) 5 - 15 mmol/L [facility] Calcium 8.9 8.5 - 10.5 mg/dL [facility] Est Glomerular Filtration Rate 8(L) >=60 mL/min/1. 73 m?? [facility] Comment: This patient's estimated [...] Alirio Hudson MD CHEMISTRY ORDERABLE S [facility] [place] [address] * (ABNORMAL) Hemogram (05/15/2023 12:50 AM EDT) White Blood Cell 9.1 4.0 - 9.5 x10(3)/mc L [facility] Red Blood Cell 2.19(L) 4.00 - 5.21 x10(6)/mc L [facility] Hemoglobin 7.2(L) 11.7 - 15.5 g/dL [facility] Hematocrit 20.6(L) 35.7 - 45.8 % [facility] Mean Cell Volume 94.1 82.6 - 94.4 fL [facility] Mean Cell Hemoglobin 32.9(H) 27.1 - 32.0 pg [facility] Mean Cell Hemoglobin Concentration 35.0 31.7 - 35.0 g/dL [facility] Platelet 109(L) 145 - 357 x10(3)/mc L [facility] RDW Standard Deviation 43.6 37.0 - 46.0 fL [facility] RDW coefficient of variation 12.9 11.5 - 14.1 % [facility] Mean Platelet Volume 10.4 7.6 - 12.9 fL [facility] NRBC% auto 2.1 % [facility] NRBC Absolute 0.190(H) 0.000 - 0.000 x10(3)/ L [facility] Blood 05/15/2023 12:5 0 AM EDT 05/15/2023 12:52 AM EDT Narrative Resulting Agency Comment Spec In Lab Alirio Hudson MD HEMATOLOGY ORDERABL ES Performing Organization Address City/State/[facility] Co de Phone Number [facility] [place] [address] * (ABNORMAL) BLOOD GAS 2 VENOUS (05/15/2023 12:49 AM EDT) pH, Venous 7.33 7.32 - 7.42 [facility] PCO2, Venous 37(L) 41 - 51 mmHg [facility] PO2, Venous 34 25 - 40 mmHg [facility] Bicarbonate, Venous 19.1 mmol/L [facility] Base Excess, Venous -6.8 mmol/L [facility] Hgb Blood Gas 10.8(L) 11.7 - 15.5 g/dL [facility] Oxyhemoglobin, Venous 58.1 % [facility] Carboxyhemoglob in, Venous 0.3 % [facility] Comment: Nonsmokers: 0.5-1.5% COHB Smokers: Variable, but usually less than 10% Toxic: 20-30% COHB Lethal: Greater than 60% COHB Methemoglobin, Venous 0.6 <=1.5 % [facility] Na Whole Blood 136 135 - 145 mmol/L [facility] K Whole Blood 3.7 3.5 - 5.0 mmol/L [facility] Comment: Please note: Patients with WBC >100,000 may have falsely elevated Potassium levels. Contact the Clinical Chemistry Laboratory if there are any questions. ICa Whole Blood 1.12(L) 1.15 - 1.33 mmol/L [facility] Comment: Note: ??Total bilirubin higher than 20 mg/dL may lead to falsely low ionized calcium. CL Whole Blood 95(L) 98 - 107 mmol/L [facility] Gluc Whole Bld 101 65 - 199 mg/dL [facility] Comment:Diabetes: >=200 mg/d L plus symptoms Lactate WB 1.3 0.5 - 2.2 mmol/L [facility] Flow, Mike 1.0 LPM [facility] Blood Gas Source Venous [facility] Blood 05/15/2023 12:4 9 AM EDT 05/15/2023 12:49 AM EDT Alirio Hudson MD POINT OF CARE TEST ORDERABLES Performing Organization Address City/State/[facility] Co de Phone Number [facility] [place] [address] * US Retroperitoneal Complete (05/14/2023 3:53 PM [...] PM Electronically signed by: Hayden Robledo MD, Radiology [place] ([phone]), at 05/14/2023 4:32 PM Thank you for letting us participate in the care of this patient. If you are a health care provider and have any questions regarding this report, please contact the number above. For patients who have questions, please contact the health child care team lead that requested your imaging first. ? Hayden Robledo, Staff Physician Electronically Signed Final Report ?? 05/14/2023 04:39 pm Narrative 05/14/2023 4:39 PM EDT Renal ? (Signed Final 05/14/2023 04:39 pm) PATIENT INFO: ID #: ? [id number] ?: ??[birth year] (67 yrs)(F) Name: ? PURNIMA THACKER ?Visit Date: 05/14/2023 03:44 pm PERFORMED BY: Attending: ?Meena CULP, Hayden Stafford Resident: ? Anand Camejo MD Performed By: ? Consuelo Tello RDMS Referred By: ?ALIRIO HUDSON Location: ? [place] SERVICE(S) PROVIDED: URETRO - Retroperitoneal Complete - [id number] ? [id number] INDICATIONS: EVANS COMPARISON: CT: Abdomen/Pelvis 05/11/23 RIGHT [...] 05/14/2023 04:39 pm) PATIENT INFO: ID #: [id number] : 55 (67 yrs)(F) Name: PURNIMA THACKER Visit Date: 05/14/2023 03:44 pm PERFORMED BY: Attending: Hayden Robledo MD Resident: Anand Camejo MD Performed By: Consuelo Tello RDMS Referred By: ALIRIO HUDSON Location: [place] SERVICE(S) PROVIDED: URETRO - Retroperitoneal Complete - [id number] INDICATIONS: EVANS COMPARISON: CT: Abdomen/Pelvis 05/11/23 RIGHT [...] PM Electronically signed by: Hayden Robledo MD, Radiology [place] ([phone]), at 05/14/2023 4:32 PM Thank you for letting us participate in the care of this patient. If you are a health care provider and have any questions regarding this report, please contact the number above. For patients who have questions, please contact the health child care team lead that requested your imaging first. Hayden Robledo, Staff Physician Electronically Signed Final Report 05/14/2023 04:39 pm Alirio Hudson MD IMG US GEN ORDERABL ES * CK (05/14/2023 3:17 PM EDT) Creatine Kinase 123 0 - 160 unit/L [facility] Blood 05/14/2023 3:17 PM EDT 05/14/2023 3:31 PM EDT Narrative Resulting Agency Comment Spec In Lab Alirio Hudson MD CHEMISTRY ORDERABLE S Performing Organization Address City/[facility]/ZIP Co de Phone Number [facility] [place] [address] * (ABNORMAL) Uric acid (05/14/2023 3:17 PM EDT) Uric Acid 14.9(H) 2.5 - 6.5 mg/dL [facility] Blood 05/14/2023 3:17 PM EDT 05/14/2023 3:31 PM EDT Narrative Resulting Agency Comment Spec In Lab Alirio Hudson MD CHEMISTRY ORDERABLE S [facility] [place] [address] * (ABNORMAL) Osmolality (05/14/2023 3:17 PM EDT) Osmolality 311(H) 275 - 295 mOsm/kg [facility] Blood 05/14/2023 3:17 PM EDT 05/14/2023 3:31 PM EDT Narrative Resulting Agency Comment Spec In Lab Alirio Hudson MD CHEMISTRY ORDERABLE S [facility] [place] [address] * (ABNORMAL) Differential, Automated (05/14/2023 1:10 AM EDT) Neutrophil % 87.2 % [facility] Neutrophil Absolute 9.74(H) 1.70 - 6.10 x10(3)/mc L [facility] Lymph % 3.9 % [facility] Lymphocytes Abs 0.4(L) 0.9 - 3.2 x10(3)/mc L [facility] Monocyte % 7.9 % [facility] Monocyte Abs 0.9 0.3 - 0.9 x10(3)/mc L [facility] Eos % 0.0 % [facility] Eosinophils Abs 0.0 0.0 - 0.4 x10(3)/mc L [facility] Basophil % 0.1 % [facility] Baso Absolute 0.0 0.0 - 0.1 x10(3)/mc L [facility] Immature Gran % 0.90 % [facility] Comment: Immature granulocytes(IG's)percentage and absolute count will include metamyelocytes, myelocytes, and promyelocytes. Blood smears from CBCs yielding IG's will be scanned manually for concordance. If this scan disagrees with the automated IG or if promyelocytes are noted, a manual differential will be performed. Immature Gran Absolute 0.10(H) 0.00 - 0.04 x10(3)/mc L [facility] Blood 05/14/2023 1:10 AM EDT 05/14/2023 1:24 AM EDT Narrative Resulting Agency Comment Spec In Lab Bonita TOBAR HEMATOLOGY ORDERABLE S [facility] [place] [address] * (ABNORMAL) Hemogram (05/14/2023 1:10 AM EDT) White Blood Cell 11.2(H) 4.0 - 9.5 x10(3)/mc L [facility] Red Blood Cell 2.19(L) 4.00 - 5.21 x10(6)/mc L [facility] Hemoglobin 7.2(L) 11.7 - 15.5 g/dL [facility] Hematocrit 20.3(L) 35.7 - 45.8 % [facility] Mean Cell Volume 92.7 82.6 - 94.4 fL [facility] Mean Cell Hemoglobin 32.9(H) 27.1 - 32.0 pg [facility] Mean Cell Hemoglobin Concentration 35.5(H) 31.7 - 35.0 g/dL [facility] Platelet 112(L) 145 - 357 x10(3)/mc L [facility] RDW Standard Deviation 41.4 37.0 - 46.0 fL [facility] RDW coefficient of variation 12.5 11.5 - 14.1 % [facility] Mean Platelet Volume 10.4 7.6 - 12.9 fL [facility] NRBC% auto 1.5 % [facility] NRBC Absolute 0.170(H) 0.000 - 0.000 x10(3)/mc L [facility] Blood 05/14/2023 1:10 AM EDT 05/14/2023 1:24 AM EDT Narrative Resulting Agency Comment Spec In Lab Bonita TOBAR HEMATOLOGY ORDERABLE S Performing Organization Address City/State/[facility] Co de Phone Number [facility] [place] [address] * (ABNORMAL) Comprehensive metabolic panel (non-fasting) (05/14/2023 1:10 AM EDT) Glucose 120 65 - 199 mg/dL [facility] Comment:Diabetes: >=200 mg/d L plus symptoms Blood Urea Nitrogen 98(H) 8 - 18 mg/dL [facility] Creatinine 4.80(H) 0.70 - 1.20 mg/dL [facility] Comment:result rechecked-ssc Sodium 132(L) 135 - 145 mmol/L [facility] Potassium 4.1 3.5 - 5.0 mmol/L [facility] Comment: Please note: ??Patients with WBC >100,000 may have falsely elevated Potassium levels. ??For accurate Potassium quantification in these patients send serum separator tube (gold top) for subsequent determinations. ??Contact the Clinical Chemistry Laboratory if there are any questions. Chloride 94(L) 98 - 107 mmol/L [facility] Carbon Dioxide 18(L) 22 - 31 mmol/L [facility] Anion Gap 20(H) 5 - 15 mmol/L [facility] Calcium 8.5 8.5 - 10.5 mg/dL [facility] Protein, Total 5.8(L) 6.1 - 8.0 g/dL [facility] Albumin 3.6 3.2 - 5.2 g/dL [facility] Aspartate Aminotransferase 319(H) 0 - 30 unit/L [facility] Alanine Aminotransferase 437(H) 0 - 30 unit/L [facility] Alkaline Phosphatase 86 35 - 105 unit/L [facility] Bilirubin, Total 0.4 0.2 - 1.3 mg/dL [facility] Est Glomerular Filtration Rate 9(L) >=60 mL/min/1. 73 m?? [facility] Comment: This patient's estimated [...] Alirio Hudson MD CHEMISTRY ORDERABLE S [facility] [place] [address] * APTT (05/13/2023 10:15 AM EDT) Partial [...] HEMATOLOGY ORDERABL ES Performing Organization Address [facility] de Phone Number [facility] [place] [address] * (ABNORMAL) Prothrombin Time (05/13/2023 10:15 AM EDT) Prothrombin Time 14.6(H) 9.4 - 12.5 sec [facility] International Normalization Ratio 1.3 [facility] Comment: An INR <2.0 [...] ES Performing Organization Address [facility] de Phone Number [facility] [place] [address] * EKG 12 Lead (05/13/2023 9:22 AM EDT) Ventricular rate 92 BPM MUSE SYSTEM Atrial Rate 92 BPM MUSE SYSTEM P-R Interval 140 ms MUSE SYSTEM QRS Duration 104 ms MUSE SYSTEM Q-T Interval 384 ms MUSE SYSTEM QTC Calculated (Bezet) 474 ms MUSE SYSTEM Calculated P [place] 33 degrees MUSE SYSTEM Calculated R [place] 41 degrees MUSE SYSTEM Calculated T [place] -35 degrees MUSE SYSTEM INTERPRETATION Sinus rhythm with frequent Premature ventricular complexes Septal infarct , age undetermined ST & T wave abnormality, consider lateral ischemia Abnormal ECG When compared with ECG of 12-MAY-2023 10:10, Premature ventricular complexes are now Present I personally reviewed the tracing and edited the fellows interpretation Confirmed by fellow MD Anitha, Carissa ([id number]) on 05/13/2023 3:25:30 PM Confirmed by Maxx Best ([id number]) on 05/13/2023 8:30:56 PM MUSE SYSTEM 05/13/2023 9:22 AM EDT 05/13/2023 8:30 PM EDT Alirio Hudson MD ECG ORDERABLES MUSE SYSTEM * (ABNORMAL) Differential, Automated (05/13/2023 1:15 AM EDT) Neutrophil % 88.1 % [facility] Neutrophil Absolute 7.62(H) 1.70 - 6.10 x10(3)/mc L [facility] Lymph % 3.1 % [facility] Lymphocytes Abs 0.3(L) 0.9 - 3.2 x10(3)/mc L [facility] Monocyte % 7.9 % [facility] Monocyte Abs 0.7 0.3 - 0.9 x10(3)/mc L [facility] Eos % 0.0 % [facility] Eosinophils Abs 0.0 0.0 - 0.4 x10(3)/mc L [facility] Basophil % 0.1 % [facility] Baso Absolute 0.0 0.0 - 0.1 x10(3)/mc L [facility] Immature Gran % 0.80 % [facility] Comment: Immature granulocytes(IG's)percentage and absolute count will include metamyelocytes, myelocytes, and promyelocytes. Blood smears from CBCs yielding IG's will be scanned manually for concordance. If this scan disagrees with the automated IG or if promyelocytes are noted, a manual differential will be performed. Immature Gran Absolute 0.07(H) 0.00 - 0.04 x10(3)/mc L [facility] Blood 05/13/2023 1:15 AM EDT 05/13/2023 1:29 AM EDT Narrative Resulting Agency Comment Spec In Lab Lorri TOBAR HEMATOLOGY ORDERABLE S [facility] [place] [address] * (ABNORMAL) Hemogram (05/13/2023 1:15 AM EDT) White Blood Cell 8.6 4.0 - 9.5 x10(3)/mc L [facility] Red Blood Cell 2.37(L) 4.00 - 5.21 x10(6)/mc L [facility] Hemoglobin 7.8(L) 11.7 - 15.5 g/dL [facility] Hematocrit 22.2(L) 35.7 - 45.8 % [facility] Mean Cell Volume 93.7 82.6 - 94.4 fL [facility] Mean Cell Hemoglobin 32.9(H) 27.1 - 32.0 pg [facility] Mean Cell Hemoglobin Concentration 35.1(H) 31.7 - 35.0 g/dL [facility] Platelet 130(L) 145 - 357 x10(3)/mc L [facility] RDW Standard Deviation 41.7 37.0 - 46.0 fL [facility] RDW coefficient of variation 12.5 11.5 - 14.1 % [facility] Mean Platelet Volume 10.2 7.6 - 12.9 fL [facility] NRBC% auto 0.5 % [facility] NRBC Absolute 0.040(H) 0.000 - 0.000 x10(3)/mc L [facility] Blood 05/13/2023 1:15 AM EDT 05/13/2023 1:29 AM EDT Narrative Resulting Agency Comment Spec In Lab Lorri TOBAR HEMATOLOGY ORDERABLE S [facility] [place] [address] * (ABNORMAL) Hepatic Function Panel (05/13/2023 1:15 AM EDT) Protein, Total 5.5(L) 6.1 - 8.0 g/dL [facility] Albumin 3.0(L) 3.2 - 5.2 g/dL [facility] Aspartate Aminotransferase 792(H) 0 - 30 unit/L [facility] Alanine Aminotransferase 903(H) 0 - 30 unit/L [facility] Alkaline Phosphatase 85 35 - 105 unit/L [facility] Bilirubin, Total 0.5 0.2 - 1.3 mg/dL [facility] Bilirubin, Direct 0.3 0.0 - 0.3 mg/dL [facility] Blood 05/13/2023 1:15 AM EDT 05/13/2023 1:29 AM EDT Narrative Resulting Agency Comment Spec In Lab Alirio Hudson MD CHEMISTRY ORDERABLE S Performing Organization Address City/State/[facility] Co de Phone Number [facility] [place] [address] * (ABNORMAL) Basic Metabolic Panel (non-fasting) (05/13/2023 1:15 AM EDT) Glucose 107 65 - 199 mg/dL [facility] Comment:Diabetes: >=200 mg/d L plus symptoms Blood Urea Nitrogen 82(H) 8 - 18 mg/dL [facility] Creatinine 3.15(H) 0.70 - 1.20 mg/dL [facility] Comment:result rechecked-OG Sodium 132(L) 135 - 145 mmol/L [facility] Potassium 3.8 3.5 - 5.0 mmol/L [facility] Comment: Please note: ??Patients with WBC >100,000 may have falsely elevated Potassium levels. ??For accurate Potassium quantification in these patients send serum separator tube (gold top) for subsequent determinations. ??Contact the Clinical Chemistry Laboratory if there are any questions. Chloride 95(L) 98 - 107 mmol/L [facility] Carbon Dioxide 20(L) 22 - 31 mmol/L [facility] Anion Gap 17(H) 5 - 15 mmol/L [facility] Calcium 8.3(L) 8.5 - 10.5 mg/dL [facility] Est Glomerular Filtration Rate 16(L) >=60 mL/min/1. 73 m?? [facility] Comment: This patient's estimated [...] [place] Co de Phone Number [facility] [place] [address] * (ABNORMAL) BLOOD GAS 2 ARTERIAL (05/12/2023 3:57 PM EDT) pH, Arterial 7.39 7.35 - 7.45 [facility] PCO2, Arterial 33(L) 35 - 45 mmHg [facility] PO2, Arterial 101 85 - 104 mmHg [facility] Bicarbonate, Arterial 19.5(L) 20.0 - 26.0 mmol/L [facility] Base Excess, Arterial -5.5(L) -3.0 - 3.0 mmol/L [facility] Hgb Blood Gas 9.8(L) 11.7 - 15.5 g/dL [facility] Oxyhemoglobin, Arterial 95.2 94.0 - 97.0 % [facility] Carboxyhemoglob in, Arterial 0.2 % [facility] Comment: Nonsmokers: 0.5-1.5% COHB Smokers: Variable, but usually less than 10% Toxic: 20-30% COHB Lethal: Greater than 60% COHB Methemoglobin, Arterial 0.8 <=1.5 % [facility] Na Whole Blood 129(L) 135 - 145 mmol/L [facility] K Whole Blood 3.8 3.5 - 5.0 mmol/L [facility] Comment: Please note: Patients with WBC >100,000 may have falsely elevated Potassium levels. Contact the Clinical Chemistry Laboratory if there are any questions. ICa Whole Blood 1.05(L) 1.15 - 1.33 mmol/L [facility] Comment: Note: ??Total bilirubin higher than 20 mg/dL may lead to falsely low ionized calcium. CL Whole Blood 96(L) 98 - 107 mmol/L [facility] Gluc Whole Bld 178 65 - 199 mg/dL [facility] Comment:Diabetes: >=200 mg/d L plus symptoms. Lactate WB 1.5 0.5 - 2.2 mmol/L [facility] FIO2 Art 40 % [facility] PF Ratio Art 252 [facility] Blood 05/12/2023 3:57 PM EDT 05/12/2023 3:57 PM EDT Alirio Hudson MD POINT OF CARE TEST ORDERABLES Performing Organization Address [facility] Co de Phone Number [facility] [place] [address] * (ABNORMAL) Coox2 (05/12/2023 2:25 PM EDT) pO2, Coox 37 mmHg [facility] Hgb Blood Gas 9.5(L) 11.7 - 15.5 g/dL [facility] Oxyhemoglobin, Coox 59.9 % [facility] Carboxyhemoglo bin, Coox 0.3 % [facility] H[facility] Comment: Nonsmokers: 0.5-1.5% COHB Smokers: Variable, but usually less than 10% Toxic: 20-30% COHB Lethal: Greater than 60% COHB Methemoglobin, Coox 0.7 <=1.5 % [facility] Source Coox Mixed Venous [facility] Blood 05/12/2023 2:25 PM EDT 05/12/2023 2:25 PM EDT Alirio Hudson MD POINT OF CARE TEST ORDERABLES Performing Organization Address [facility] Co de Phone Number [facility] [place] [address] * (ABNORMAL) BLOOD GAS 2 ARTERIAL (05/12/2023 2:23 PM EDT) pH, Arterial 7.37 7.35 - 7.45 [facility] PCO2, Arterial 36 35 - 45 mmHg [facility] PO2, Arterial 102 85 - 104 mmHg [facility] Bicarbonate, Arterial 20.4 20.0 - 26.0 mmol/L [facility] Base Excess, Arterial -4.8(L) -3.0 - 3.0 mmol/L [facility] Hgb Blood Gas 12.7 11.7 - 15.5 g/dL [facility] Oxyhemoglobin, Arterial 95.4 94.0 - 97.0 % [facility] Carboxyhemoglob in, Arterial 0.3 % [facility] Comment: Nonsmokers: 0.5-1.5% COHB Smokers: Variable, but usually less than 10% Toxic: 20-30% COHB Lethal: Greater than 60% COHB Methemoglobin, Arterial 0.7 <=1.5 % [facility] Na Whole Blood 129(L) 135 - 145 mmol/L [facility] K Whole Blood 3.7 3.5 - 5.0 mmol/L [facility] Comment: Please note: Patients with WBC >100,000 may have falsely elevated Potassium levels. Contact the Clinical Chemistry Laboratory if there are any questions. ICa Whole Blood 1.05(L) 1.15 - 1.33 mmol/L [facility] Comment: Note: ??Total bilirubin higher than 20 mg/dL may lead to falsely low ionized calcium. CL Whole Blood 95(L) 98 - 107 mmol/L [facility] Gluc Whole Bld 168 65 - 199 mg/dL [facility] Comment:Diabetes: >=200 mg/d L plus symptoms. Lactate WB 1.8 0.5 - 2.2 mmol/L [facility] FIO2 Art 40 % [facility] PF Ratio Art 255 [facility] SPITAL LABORATORY Blood 05/12/2023 2:23 PM EDT 05/12/2023 2:23 PM EDT Alirio Hudson MD POINT OF CARE TEST ORDERABLES [facility] [place] [address] * (ABNORMAL) Troponin (05/12/2023 2:05 PM EDT) Troponin-T, High Sensitivity 1,022(H) <=14 ng/L [facility] Comment: This patient's troponin [...] troponin value can be found in the [facility] Test Catalog Troponin - [facility] Test Catalog Reference: Fourth [place] Definition of Myocardial Infarction. Journal of the [place] [employer] 2018;72:4973-3034 Blood 05/12/2023 2:05 PM EDT 05/12/2023 2:14 PM EDT Narrative Resulting Agency Comment Spec In Lab Alirio Hudson MD CHEMISTRY ORDERABLE S [facility] [place] [address] * (ABNORMAL) Hemoglobin (05/12/2023 2:05 PM EDT) Hemoglobin 8.5(L) 11.7 - 15.5 g/dL [facility] Blood 05/12/2023 2:05 PM EDT 05/12/2023 2:14 PM EDT Narrative Resulting Agency Comment Spec In Lab Alirio Hudson MD HEMATOLOGY ORDERABL ES Performing Organization Address [facility] Co de Phone Number [facility] [place] [address] * Potassium (05/12/2023 2:05 PM EDT) Potassium 3.9 3.5 - 5.0 mmol/L [facility] Comment: Please note: ??Patients [...] CHEMISTRY ORDERABLE S Performing Organization Address [facility] Co de Phone Number [facility] [place] [address] * (ABNORMAL) BLOOD GAS 2 ARTERIAL (05/12/2023 11:05 AM EDT) pH, Arterial 7.34(L) 7.35 - 7.45 [facility] PCO2, Arterial 42 35 - 45 mmHg [facility] PO2, Arterial 73(L) 85 - 104 mmHg [facility] Bicarbonate, Arterial 22.1 20.0 - 26.0 mmol/L [facility] Base Excess, Arterial -3.6(L) -3.0 - 3.0 mmol/L [facility] Hgb Blood Gas 9.3(L) 11.7 - 15.5 g/dL [facility] Oxyhemoglobin, Arterial 89.3(L) 94.0 - 97.0 % [facility] Carboxyhemoglob in, Arterial 0.2 % [facility] Comment: Nonsmokers: 0.5-1.5% COHB Smokers: Variable, but usually less than 10% Toxic: 20-30% COHB Lethal: Greater than 60% COHB Methemoglobin, Arterial 0.9 <=1.5 % [facility] Na Whole Blood 131(L) 135 - 145 mmol/L [facility] K Whole Blood 3.8 3.5 - 5.0 mmol/L [facility] Comment: Please note: Patients with WBC >100,000 may have falsely elevated Potassium levels. Contact the Clinical Chemistry Laboratory if there are any questions. ICa Whole Blood 1.04(L) 1.15 - 1.33 mmol/L [facility] Comment: Note: ??Total bilirubin higher than 20 mg/dL may lead to falsely low ionized calcium. CL Whole Blood 96(L) 98 - 107 mmol/L [facility] Gluc Whole Bld 152 65 - 199 mg/dL [facility] Comment:Diabetes: >=200 mg/d L plus symptoms. Lactate WB 2.8(H) 0.5 - 2.2 mmol/L [facility] FIO2 Art 40 % [facility] PF Ratio Art 182 [facility] Blood 05/12/2023 11:0 5 AM EDT 05/12/2023 11:05 AM EDT Alirio Hudson MD POINT OF CARE TEST ORDERABLES [facility] [place] [address] * (ABNORMAL) BLOOD GAS 2 ARTERIAL (05/12/2023 10:14 AM EDT) pH, Arterial 7.18(Criti gabrielle) 7.35 - 7.45 [facility] Comment:Noted by musical instruments assembler. PCO2, Arterial 45 35 - 45 mmHg [facility] PO2, Arterial 186(H) 85 - 104 mmHg [facility] Bicarbonate, Arterial 16.2(L) 20.0 - 26.0 mmol/L [facility] Base Excess, Arterial -12.2(L) -3.0 - 3.0 mmol/L [facility] Hgb Blood Gas 10.0(L) 11.7 - 15.5 g/dL [facility] Oxyhemoglobin, Arterial 97.0 94.0 - 97.0 % [facility] Carboxyhemoglob in, Arterial 0.2 % [facility] Comment: Nonsmokers: 0.5-1.5% COHB Smokers: Variable, but usually less than 10% Toxic: 20-30% COHB Lethal: Greater than 60% COHB Methemoglobin, Arterial 0.9 <=1.5 % [facility] Na Whole Blood 129(L) 135 - 145 mmol/L [facility] K Whole Blood 3.6 3.5 - 5.0 mmol/L [facility] Comment: Please note: Patients with WBC >100,000 may have falsely elevated Potassium levels. Contact the Clinical Chemistry Laboratory if there are any questions. ICa Whole Blood 1.10(L) 1.15 - 1.33 mmol/L [facility] Comment: Note: ??Total bilirubin higher than 20 mg/dL may lead to falsely low ionized calcium. CL Whole Blood 97(L) 98 - 107 mmol/L [facility] Gluc Whole Bld 161 65 - 199 mg/dL [facility] Comment:Diabetes: >=200 mg/d L plus symptoms. Lactate WB 3.3(H) 0.5 - 2.2 mmol/L [facility] FIO2 Art 100 % [facility] PF Ratio Art 186 [facility] Blood 05/12/2023 10:1 4 AM EDT 05/12/2023 10:14 AM EDT Alirio Hudson MD POINT OF CARE TEST ORDERABLES Performing Organization Address City/State/[facility] Co de Phone Number [facility] [place] [address] * EKG 12 Lead (05/12/2023 10:10 AM EDT) Ventricular rate 116 BPM MUSE SYSTEM Atrial Rate 116 BPM MUSE SYSTEM P-R Interval 158 ms MUSE SYSTEM QRS Duration 114 ms MUSE SYSTEM Q-T Interval 348 ms MUSE SYSTEM QTC Calculated (Bezet) 483 ms MUSE SYSTEM Calculated P [place] 37 degrees MUSE SYSTEM Calculated R [place] 31 degrees MUSE SYSTEM Calculated T [place] -138 degrees MUSE SYSTEM INTERPRETATION Sinus tachycardia with intermittent aberrant ventricular conduction Possible Left atrial enlargement Incomplete left bundle block Left ventricular hypertrophy with repolarization abnormality ( Sokolow-Orozco , Eastern product ) ST & T wave abnormality in Inferolateral leads Abnormal ECG When compared with ECG of 10-MAY-2023 13:16, ST & T wave abnormality is more pronounced in inferolateral leads I personally reviewed the tracing and edited the fellows interpretation Confirmed by fellow MD Anuja, Jim ([id number]) on 05/12/2023 1:04:20 PM Confirmed by MD Mono, Eleni ([id number]) on 05/12/2023 9:28:34 PM MUSE SYSTEM 05/12/2023 [...] ? Electronically signed by: Chyna Johnson MD, [facility] ??([phone]), at 05/12/2023 10:08 AM Narrative 05/12/2023 10:08 AM EDT EXAMINATION: XR CHEST ONE VIEW CLINICAL HISTORY: Post TAVR TECHNIQUE: 1 view of the chest COMPARISON: Chest radiograph from earlier today FINDINGS: Interval placement of endotracheal tube with tip terminating 2 cm above the shira. Interval placement of enteric tube projecting along the expected course of the esophagus and outside the lrqkx-ts-ahke. Interval retraction of right IJ approach pulmonary [...] expected course ofthe esophagus and outside the tvnag-kv-equp. Interval retraction of right IJ approach pulmonary [...] first. Electronically signed by: Chyna Johnson MD, [facility]([phone]), at 05/12/2023 10:08 AM Alirio Hudson MD [...] 1955 ? Height: 154 cm ? Account: [id number] Age: 67 yrs ? Weight: 75 kg Gender: Female ?BSA: 1.7 m2 Ordering Physician: RADHA HOLLINS Referring Physician: RADHA HOLLINS Performed By: Dilma Bee RDCS Reason For Study: Guidance for TAVR procedure Exam Location: [facility]. Interpretation Summary PRE TAVR: [...] mL/m2. POST TAVR: Normal function of the lpbzt-yi-wsovz prosthesis. See below for hemodynamic parameters. Slight improvement in left and right ventricular systolic function. LVEF now 20-25%. No pericardial effusion. See report for additional findings. Procedure Limited - 41262. Doppler - 03217. Color Doppler - 98150. Left Ventricle Left ventricle is of normal [...] Date: 307:33 AMBP: 96/63 mmHg Patient Location: [address] : 1955 Height: 154 cm Account: [id number] Age: 67 yrs Weight: 75 kg Gender: Female BSA: 1.7 m2 Ordering Physician: RADHA HOLLINS Referring Physician: RADHA HOLLINS Performed By: Dilma Bee RDCS Reason For Study: Guidance for TAVR procedure Exam Location: [facility]. Interpretation Summary PRE TAVR: [...] 28mL/m2. POST TAVR: Normal function of the igprq-of-pcwno prosthesis. See belowfor hemodynamic parameters. Slight improvement in left and right ventricularsystolic function. LVEF now 20-25%. No pericardial effusion. See report for additional findings. Procedure Limited - 82181. Doppler - 11742. Color Doppler - 66263. Left Ventricle Left ventricle is of normal [...] Modality Other Narrative 05/12/2023 2:37 PM EDT ?[facility] ? Cardiac Catheterization/Intervention Report ? Patient Name: Kirstie, Purnima M. ? Procedure Date: 05/12/2023 ? A #: [id number] ? Primary Physician: Antelmo Sharma ? Case #: [id number] ? File Name: [id number] ? Catheterization Order Number: [id number] ? [facility] ? Final Report [place], [place] ? Patient Name: ? Purnima Thacker ? ID#: ?[id number] ? : ?1955 ? Procedure Date: ? May 12, 2023 ? Case #: ? [id number] ? Room: ? 6 ? Case Physicians: ?Antelmo Sharma M.D. ?Start: ?08:03 ?Alirio Hudson M.D. ?Admission: ??05/08/2023 ?Lynda Mcgowan M.D. ? Discharge: ??05/22/2023 ?Fellow: ? Kristied Adair Tejeda ? Referring Physician: ??Mario Alberto Chin M.D. ? Procedures: ?* Coronary Angiography ?* Left Heart Catheterization ?* Coronary Stent Insertion ?* Transcatheter Aortic Valve Replacement ?* Vascular Closure Device Deployment ?* Temporary Pacemaker Insertion In Automobile Upholsterer ?* Endotracheal Intubation By Non-Cath Physician ?* [...] was designated as ASA Class IV. The [facility] clinical ?frailty scale is 4: Vulnerable. [...] ??A premounted 4.00 x 30 mm Nils [place] (MINNA) was ? deployed with a maximum [...] calculated STS risk score was 30.1%. A dpnqc-nw-dbfbp ?procedure was performed on the pre-existing bioprosthetic stented ?prosthesis. The priority of the rcfau-wc-uqpjz procedure was Elective. ?The procedure was performed [...] Lai 3 Ultra RESILIA 23 mm THV (s/z=[id number]) transcatheter ?valve was inserted using standard technique. [...] to nor was it given in the ?bed laborer. ?Recommended anti-platelet/anti-thrombotic regimen: ?Continue aspirin 81 mg daily for indefinitely. ?These recommendations are made at the time of the intervention. Patient ?and provider preferences or a changing clinical situation may require ?modification of this regimen. Consult [facility] Interventional Cardiology for ?questions. ? Conclusions: ?* [...] regimen. ? Comments: ?Successful right transfemoral TAVR Sffvv-fj-Giaba with a 23 mm Lai 3 ?THV. [...] insertion-coronary, access site angiography, ?temporary pacemaker in bed laborer, intubation-non cath physician, vascular ?closure device, transthoracic echo ??and TAVR. Dr. Alirio Hudson M.D. ?performed the left heart catheterization, access site angiography, ?temporary pacemaker in bed laborer, vascular closure device, transthoracic ?echo , TAVR and CPR during cath. Dr. Lynda Mcgowan M.D. performed the ABG, ?anesthesia and intubation-non cath physician. ? Antelmo Sharma M.D. ? Electronically Signed by: Antelmo Sharma M.D. ? Report Finalized: 05/12/2023 ??14:31 ? Report Last Ammended: 07/01/2023 ??11:30 ? Procedure Note Antelmo Sharma MD - 07/01/2023 [facility] Cardiac Catheterization/Intervention Report Patient Name: Purnima Thacker Procedure Date: 05/12/2023 A #: [id number] Primary Physician: Antelmo Sharma Case #: [id number] File Name: [id number] Catheterization Order Number: [id number] [facility] FinalReport [place], [place] Patient Name: Purnima Thacker ID#:[id number] :1955 Procedure Date: May 12, 2023 Case #: [id number] Room: 6 Case Physicians: Antelmo Sharma M.D. Start: 08:03 Alirio Hudson M.D. Admission:05/08/2023 Lynda Mcgowan M.D. Discharge:05/22/2023 Fellow: Rebekah Tejeda M.D. Referring Physician: Mario Alberto Chin M.D. Procedures: * Coronary Angiography * Left Heart Catheterization * Coronary Stent Insertion * Transcatheter Aortic Valve Replacement * Vascular Closure Device Deployment * Temporary Pacemaker Insertion In Automobile Upholsterer * Endotracheal Intubation By Non-Cath Physician * [...] guide. A premounted 4.00 x 30 mm [place] (MINNA) was deployed with a maximum inflation [...] calculated STS risk score was 30.1%. A pcbiv-wh-tbmbg procedure was performed on the pre-existing bioprosthetic stented prosthesis. The priority of the sougr-yn-dtdbm procedure wasElective. The procedure was performed under Moderate sedation performed byLynda Mcgowan M.D. (see anesthesia report for additional details). Alirio Hudson M.D. participated in the case (see Cardiac Surgery reportfor additional details). The TAVR sheath was a 14 Fr Corona eSheath Introducer and theaccess site was femoral. Rapid ventricular pacing was performed. An Corona Lai 3 Ultra RESILIA 23 mm THV (s/f=[id number])transcatheter valve was inserted using standard technique. The [...] prior to nor was it given inthe bed laborer. Recommended anti-platelet/anti-thrombotic regimen: Continue aspirin 81 mg daily for indefinitely. These recommendations are made at the time of the intervention.Patient and provider preferences or a changing clinical situation mayrequire modification of this regimen. Consult [facility] Interventional Cardiologyfor questions. Conclusions: * Nonobstructive disease [...] this regimen. Comments: Successful right transfemoral TAVR Pgogr-dj-Forck with a 23 mmSapien 3 THV. We [...] insertion-coronary, access site angiography, temporary pacemaker in bed laborer, intubation-non cath physician,vascular closure device, transthoracic echo and TAVR. Dr. Alirio Hudson M.D. performed the left heart catheterization, access site angiography, temporary pacemaker in bed laborer, vascular closure device,transthoracic echo , TAVR [...] POC 7.20(Crit ical) 7.35 - 7.45 [facility] Comment:Critical value OK, C C Lab. pCO2, POC 42 35 - 45 mmHg [facility] pO2, POC 260(H) 85 - 104 mmHg [facility] Base Excess, POC -11.0(L) -3.0 - 3.0 mmol/L [facility] Bicarbonate, POC 16.7(L) 20.0 - 26.0 mmol/L [facility] Sodium, POC 129(L) 135 - 145 mmol/L [facility] POC Potassium 3.8 3.5 - 5.0 mmol/L [facility] Ionized Calcium, POC 1.12(L) 1.15 - 1.33 mmol/L [facility] POC Hematocrit 23.0(L) 34.0 - 45.0 % [facility] POC Calc Hgb 7.8(L) 11.2 - 15.7 g/dL [facility] Comment:The calculation of h emoglobin from hematocrit assumes a normal MCHC. POC Bgas Loc CC Lab [facility] Blood 05/12/2023 8:50 AM EDT 05/13/2023 12:00 PM EDT Alirio Hudson MD CHEMISTRY ORDERABLE S [facility] [place] [address] * (ABNORMAL) Point of Care Blood Gas Historical (05/12/2023 8:10 AM EDT) pH, POC 7.27(Crit ical) 7.35 - 7.45 [facility] Comment:Critical value OK, C C Lab. pCO2, POC 37 35 - 45 mmHg [facility] pO2, POC 29(Critic al) 85 - 104 mmHg [facility] Comment:Critical value OK, C C Lab. Base Excess, POC -10.0(L) -3.0 - 3.0 mmol/L [facility] Bicarbonate, POC 16.7(L) 20.0 - 26.0 mmol/L [facility] Sodium, POC 123(L) 135 - 145 mmol/L [facility] POC Potassium 4.0 3.5 - 5.0 mmol/L [facility] Ionized Calcium, POC 1.12(L) 1.15 - 1.33 mmol/L [facility] POC Hematocrit 27.0(L) 34.0 - 45.0 % [facility] POC Calc Hgb 9.2(L) 11.2 - 15.7 g/dL [facility] Comment:The calculation of h emoglobin from hematocrit assumes a normal MCHC. POC Bgas Loc CC Lab [facility] Blood 05/12/2023 8:10 AM EDT 05/13/2023 12:00 PM EDT Alirio Hudson MD CHEMISTRY ORDERABLE S [facility] [place] [address] * (ABNORMAL) Lactate, whole blood, send to lab ([facility]) (05/12/2023 7:00 AM EDT) Lactate WB 2.4(H) 0.5 - 2.2 mmol/L [facility] Blood 05/12/2023 7:00 AM EDT 05/12/2023 7:09 AM EDT Narrative Resulting Agency Comment Spec In Lab Radha Hollins MD CHEMISTRY ORDERABL ES Performing Organization Address City/[facility]/ZIP Co de Phone Number [facility] [place] [address] * (ABNORMAL) Comprehensive metabolic panel (non-fasting) (05/12/2023 6:00 AM EDT) Glucose 167 65 - 199 mg/dL [facility] Comment:Diabetes: >=200 mg/d L plus symptoms Blood Urea Nitrogen 67(H) 8 - 18 mg/dL [facility] Creatinine 2.01(H) 0.70 - 1.20 mg/dL [facility] Sodium 131(L) 135 - 145 mmol/L [facility] Potassium 4.3 3.5 - 5.0 mmol/L [facility] Comment: Please note: ??Patients with WBC >100,000 may have falsely elevated Potassium levels. ??For accurate Potassium quantification in these patients send serum separator tube (gold top) for subsequent determinations. ??Contact the Clinical Chemistry Laboratory if there are any questions. Chloride 97(L) 98 - 107 mmol/L [facility] Carbon Dioxide 14(L) 22 - 31 mmol/L [facility] Anion Gap 20(H) 5 - 15 mmol/L [facility] Calcium 8.6 8.5 - 10.5 mg/dL [facility] Protein, Total 6.3 6.1 - 8.0 g/dL [facility] Albumin 3.5 3.2 - 5.2 g/dL [facility] Aspartate Aminotransferase 1,435(H) 0 - 30 unit/L [facility] Alanine Aminotransferase 1,174(H) 0 - 30 unit/L [facility] Alkaline Phosphatase 100 35 - 105 unit/L [facility] Bilirubin, Total 0.9 0.2 - 1.3 mg/dL [facility] Est Glomerular Filtration Rate 27(L) >=60 mL/min/1. 73 m?? [facility] Comment: This patient's estimated [...] [place] Co de Phone Number [facility] [place] [address] * (ABNORMAL) Coox2 (05/12/2023 5:08 AM EDT) pO2, Coox 24 mmHg [facility] Hgb Blood Gas 10.4(L) 11.7 - 15.5 g/dL [facility] Oxyhemoglobin, Coox 30.7 % [facility] Carboxyhemoglo bin, Coox 0.3 % [facility] Comment: Nonsmokers: 0.5-1.5% COHB Smokers: Variable, but usually less than 10% Toxic: 20-30% COHB Lethal: Greater than 60% COHB Methemoglobin, Coox 0.8 <=1.5 % [facility] Source Coox Mixed Venous [facility] Blood 05/12/2023 5:08 AM EDT 05/12/2023 5:08 AM EDT Radha Hollins MD POINT OF CARE TEST ORDERABLES Performing Organization Address [facility] Co de Phone Number [facility] [place] [address] * (ABNORMAL) Coox2 (05/12/2023 3:21 AM EDT) pO2, Coox 25 mmHg [facility] Hgb Blood Gas 10.8(L) 11.7 - 15.5 g/dL [facility] Oxyhemoglobin, Coox 32.7 % [facility] Carboxyhemoglo bin, Coox 0.3 % [facility] Comment: Nonsmokers: 0.5-1.5% COHB Smokers: Variable, but usually less than 10% Toxic: 20-30% COHB Lethal: Greater than 60% COHB Methemoglobin, Coox 0.7 <=1.5 % [facility] Source Coox Mixed Venous [facility] Blood 05/12/2023 3:21 AM EDT 05/12/2023 3:21 AM EDT Radha Hollins MD POINT OF CARE TEST ORDERABLES Performing Organization Address [facility] de Phone Number [facility] [place] [address] * (ABNORMAL) BLOOD GAS 2 ARTERIAL (05/12/2023 3:18 AM EDT) pH, Arterial 7.34(L) 7.35 - 7.45 [facility] PCO2, Arterial 30(L) 35 - 45 mmHg [facility] PO2, Arterial 72(L) 85 - 104 mmHg [facility] Bicarbonate, Arterial 16.0(L) 20.0 - 26.0 mmol/L [facility] Base Excess, Arterial -9.8(L) -3.0 - 3.0 mmol/L [facility] Hgb Blood Gas 11.0(L) 11.7 - 15.5 g/dL [facility] Oxyhemoglobin, Arterial 89.8(L) 94.0 - 97.0 % [facility] Carboxyhemoglob in, Arterial 0.3 % [facility] Comment: Nonsmokers: 0.5-1.5% COHB Smokers: Variable, but usually less than 10% Toxic: 20-30% COHB Lethal: Greater than 60% COHB Methemoglobin, Arterial 0.7 <=1.5 % [facility] Na Whole Blood 131(L) 135 - 145 mmol/L [facility] K Whole Blood 4.2 3.5 - 5.0 mmol/L [facility] Comment: Please note: Patients with WBC >100,000 may have falsely elevated Potassium levels. Contact the Clinical Chemistry Laboratory if there are any questions. ICa Whole Blood 1.12(L) 1.15 - 1.33 mmol/L [facility] Comment: Note: ??Total bilirubin higher than 20 mg/dL may lead to falsely low ionized calcium. CL Whole Blood 100 98 - 107 mmol/L [facility] Gluc Whole Bld 160 65 - 199 mg/dL [facility] Comment:Diabetes: >=200 mg/d L plus symptoms. Lactate WB 2.7(H) 0.5 - 2.2 mmol/L [facility] Flow Art 5.0 LPM [facility] Blood 05/12/2023 3:18 AM EDT 05/12/2023 3:18 AM EDT Radha Hollins MD POINT OF CARE TEST ORDERABLES Performing Organization Address City/State/[facility] Co de Phone Number [facility] [place] [address] * (ABNORMAL) Coox2 (05/12/2023 1:14 AM EDT) pO2, Coox 28 mmHg [facility] Hgb Blood Gas 10.9(L) 11.7 - 15.5 g/dL [facility] Oxyhemoglobin, Coox 37.3 % [facility] Carboxyhemoglo bin, Coox 0.3 % [facility] Comment: Nonsmokers: 0.5-1.5% COHB Smokers: Variable, but usually less than 10% Toxic: 20-30% COHB Lethal: Greater than 60% COHB Methemoglobin, Coox 0.5 <=1.5 % [facility] Source Coox Mixed Venous [facility] Blood 05/12/2023 1:14 AM EDT 05/12/2023 1:14 AM EDT Radha Hollins MD POINT OF CARE TEST ORDERABLES [facility] [place] [address] * (ABNORMAL) BLOOD GAS 2 ARTERIAL (05/12/2023 1:06 AM EDT) pH, Arterial 7.34(L) 7.35 - 7.45 [facility] PCO2, Arterial 30(L) 35 - 45 mmHg [facility] PO2, Arterial 81(L) 85 - 104 mmHg [facility] Bicarbonate, Arterial 15.7(L) 20.0 - 26.0 mmol/L [facility] Base Excess, Arterial -10.1(L) -3.0 - 3.0 mmol/L [facility] Hgb Blood Gas 11.0(L) 11.7 - 15.5 g/dL [facility] Oxyhemoglobin, Arterial 92.3(L) 94.0 - 97.0 % [facility] Carboxyhemoglob in, Arterial 0.2 % [facility] Comment: Nonsmokers: 0.5-1.5% COHB Smokers: Variable, but usually less than 10% Toxic: 20-30% COHB Lethal: Greater than 60% COHB Methemoglobin, Arterial 0.6 <=1.5 % [facility] Na Whole Blood 131(L) 135 - 145 mmol/L [facility] K Whole Blood 4.2 3.5 - 5.0 mmol/L [facility] Comment: Please note: Patients with WBC >100,000 may have falsely elevated Potassium levels. Contact the Clinical Chemistry Laboratory if there are any questions. ICa Whole Blood 1.13(L) 1.15 - 1.33 mmol/L [facility] Comment: Note: ??Total bilirubin higher than 20 mg/dL may lead to falsely low ionized calcium. CL Whole Blood 99 98 - 107 mmol/L [facility] Gluc Whole Bld 132 65 - 199 mg/dL [facility] Comment:Diabetes: >=200 mg/d L plus symptoms. Lactate WB 2.7(H) 0.5 - 2.2 mmol/L [facility] Flow Art 5.0 LPM [facility] Blood 05/12/2023 1:06 AM EDT 05/12/2023 1:06 AM EDT Radha Hollins MD POINT OF CARE TEST ORDERABLES [facility] [place] [address] * (ABNORMAL) Differential, Automated (05/12/2023 1:05 AM EDT) Neutrophil % 83.3 % [facility] Neutrophil Absolute 7.49(H) 1.70 - 6.10 x10(3)/mc L [facility] Lymph % 7.1 % [facility] Lymphocytes Abs 0.6(L) 0.9 - 3.2 x10(3)/mc L [facility] Monocyte % 8.9 % [facility] Monocyte Abs 0.8 0.3 - 0.9 x10(3)/mc L [facility] Eos % 0.0 % [facility] Eosinophils Abs 0.0 0.0 - 0.4 x10(3)/mc L [facility] Basophil % 0.1 % [facility] Baso Absolute 0.0 0.0 - 0.1 x10(3)/mc L [facility] Immature Gran % 0.60 % [facility] Comment: Immature granulocytes(IG's)percentage and absolute count will include metamyelocytes, myelocytes, and promyelocytes. Blood smears from CBCs yielding IG's will be scanned manually for concordance. If this scan disagrees with the automated IG or if promyelocytes are noted, a manual differential will be performed. Immature Gran Absolute 0.05(H) 0.00 - 0.04 x10(3)/mc L [facility] Blood 05/12/2023 1:05 AM EDT 05/12/2023 1:15 AM EDT Narrative Resulting Agency Comment Spec In Lab Gianni Fletcher MD HEMATOLOGY ORDERABLE S [facility] [place] [address] * (ABNORMAL) Hemogram (05/12/2023 1:05 AM EDT) White Blood Cell 9.0 4.0 - 9.5 x10(3)/mc L [facility] Red Blood Cell 3.01(L) 4.00 - 5.21 x10(6)/mc L [facility] Hemoglobin 9.8(L) 11.7 - 15.5 g/dL [facility] Hematocrit 28.7(L) 35.7 - 45.8 % [facility] Mean Cell Volume 95.3(H) 82.6 - 94.4 fL [facility] Mean Cell Hemoglobin 32.6(H) 27.1 - 32.0 pg [facility] Mean Cell Hemoglobin Concentration 34.1 31.7 - 35.0 g/dL [facility] Platelet 186 145 - 357 x10(3)/mc L [facility] RDW Standard Deviation 43.7 37.0 - 46.0 fL [facility] RDW coefficient of variation 12.7 11.5 - 14.1 % [facility] Mean Platelet Volume 10.3 7.6 - 12.9 fL [facility] NRBC% auto 0.0 % [facility] NRBC Absolute 0.000 0.000 - 0.000 x10(3)/ L [facility] Blood 05/12/2023 1:05 AM EDT 05/12/2023 1:15 AM EDT Narrative Resulting Agency Comment Spec In Lab Gianni Fletcher MD HEMATOLOGY ORDERABLE S [facility] [place] [address] * (ABNORMAL) Comprehensive metabolic panel (non-fasting) (05/12/2023 1:05 AM EDT) Glucose 141 65 - 199 mg/dL [facility] Comment:Diabetes: >=200 mg/d L plus symptoms Blood Urea Nitrogen 63(H) 8 - 18 mg/dL [facility] Creatinine 1.86(H) 0.70 - 1.20 mg/dL [facility] Sodium 131(L) 135 - 145 mmol/L [facility] Potassium 4.4 3.5 - 5.0 mmol/L [facility] Comment: Please note: ??Patients with WBC >100,000 may have falsely elevated Potassium levels. ??For accurate Potassium quantification in these patients send serum separator tube (gold top) for subsequent determinations. ??Contact the Clinical Chemistry Laboratory if there are any questions. Chloride 96(L) 98 - 107 mmol/L [facility] Carbon Dioxide 14(L) 22 - 31 mmol/L [facility] Anion Gap 21(H) 5 - 15 mmol/L [facility] Calcium 9.0 8.5 - 10.5 mg/dL [facility] Protein, Total 6.6 6.1 - 8.0 g/dL [facility] Albumin 3.9 3.2 - 5.2 g/dL [facility] Aspartate Aminotransferase 1,227(H) 0 - 30 unit/L [facility] Alanine Aminotransferase 1,097(H) 0 - 30 unit/L [facility] Alkaline Phosphatase 108(H) 35 - 105 unit/L [facility] Bilirubin, Total 1.0 0.2 - 1.3 mg/dL [facility] Est Glomerular Filtration Rate 29(L) >=60 mL/min/1. 73 m?? [facility] Comment: This patient's estimated [...] Radha Hollins MD CHEMISTRY ORDERABL ES [facility] [place] [address] * XR Chest One View (05/12/2023 1:00 AM EDT) Anatomical Region Laterality Modality Chest N/A Digital Radiogra phy Impressions 05/12/2023 3:16 AM EDT * ??Right IJV approach pulmonary arterial catheter terminates in the right interlobar pulmonary artery near its bifurcation. Please retract 5 to 7 cm. * ??Increased pulmonary vascular congestion, interstitial/alveolar edema, and medium-sized bilateral pleural effusions. I, Will Rwoe, discussed the above findings with Dr. Klaudia [...] lead that requested your imaging first. ? Narrative [...] interstitial/alveolar edema,and medium-sized bilateral pleural effusions. I, Wlil Rowe, discussed the above findings with Dr. Klaudia Malagon on 05/12/2023 at 3:15 AM and verified understanding. Thank you for letting us participate in the care of this patient. If youare a health care provider and have any questions regarding this report,please contact the number below. For patients who have questions please contactthe health child care team lead that requested your imaging first. Radha Hollins MD IMG DX ORDERABLES * (ABNORMAL) Coox2 (05/12/2023 12:30 AM EDT) pO2, Coox 22 mmHg [facility] Hgb Blood Gas 10.9(L) 11.7 - 15.5 g/dL [facility] Oxyhemoglobin, Coox 25.1 % [facility] Carboxyhemoglo bin, Coox 0.3 % [facility] Comment: Nonsmokers: 0.5-1.5% COHB Smokers: Variable, but usually less than 10% Toxic: 20-30% COHB Lethal: Greater than 60% COHB Methemoglobin, Coox 1.4 <=1.5 % [facility] Source Coox Mixed Venous [facility] Blood 05/12/2023 12:3 0 AM EDT 05/12/2023 12:30 AM EDT Radha Hollins MD POINT OF CARE TEST ORDERABLES [facility] [place] [address] * XR Chest One View (05/11/2023 11:45 [...] lead that requested your imaging first. ? Narrative [...] first. Electronically signed by: Will Rowe MD, [facility]([phone]), at 05/11/2023 11:57 PM Radha Hollins MD IMG DX ORDERABLES * (ABNORMAL) Lactate, whole blood, send to lab ([facility]) (05/11/2023 7:40 PM EDT) Lactate WB 4.8(Critic al) 0.5 - 2.2 mmol/L [facility] Comment:Called by: NIKI, Read back by: Magdalena Baires, Date/Time:05/11/23 19:54. Blood 05/11/2023 7:40 PM EDT 05/11/2023 7:49 PM EDT Narrative Resulting Agency Comment Spec In Lab Radha Hollins MD CHEMISTRY ORDERABL ES Performing Organization Address [facility] Co de Phone Number [facility] [place] [address] * Urine culture (05/11/2023 7:22 PM EDT) Urine Culture 50,000-99,000 cfu/ml Normal mucosal herman Susceptibilit y testing not routinely performed for Coagulase Negative Staphylococcu s species and other Gram Positive organisms from urine. [facility] Clean Catch Urine 05/11/2023 7:22 PM EDT 05/11/2023 8:50 PM EDT Narrative Resulting Agency Comment Spec In Lab Brody Dale Eusebio OSBORN MICROBIOLOGY - GENE RAL ORDERABLES Performing Organization Address [facility] de Phone Number [facility] [place] [address] * (ABNORMAL) Urinalysis Microscopic Exam (05/11/2023 7:22 PM EDT) RBC, Urine 2 0 - 4 /HPF [facility] WBC, Urine >100(H) 0 - 5 /HPF [facility] Bacteria, Urine Occasional (A) None /HPF [facility] Squamous Epithelial Cells Raw Data, Urine 5(H) <=4 /HPF [facility] Hyaline Casts, Urine 3(H) 0 - 2 /LPF [facility] Clean Catch Urine 05/11/2023 7:22 PM EDT 05/11/2023 7:31 PM EDT Narrative Resulting Agency Comment Spec In Lab Brody Kaplan APRN URINE ORDERABLES Performing Organization Address [facility] Co de Phone Number [facility] [place] [address] * (ABNORMAL) Urinalysis with reflex Culture (05/11/2023 7:22 PM EDT) Glucose, Urine Dipstick Negative Negative mg/dL [facility] Protein, Urine Dipstick Trace(A) Negative mg/dL [facility] Bilirubin, Urine Dipstick Negative Negative mg/dL [facility] Comment: Clinical correlation required for positive Urine Bilirubin results as false positive may occur with some drugs and drug related products. If a false positive is suspected a serum total bilirubin should be considered if clinically indicated. Urobilinogen, Urine Dipstick Normal Normal mg/dL [facility] pH, Urn (dipstick) 5.0 5.0 - 8.0 [facility] Blood, Urine Dipstick Trace(A) Negative mg/dL [facility] Ketone, Urine Dipstick Negative Negative mg/dL [facility] Nitrite, Urine Dipstick Negative Negative [facility] Leukocytes, Urine Dipstick Moderate(A) Negative mcL [facility] Appearance, Urine Dipstick Cloudy(A) Clear [facility] Specific [place] Urine Automated >=1.030(A) 1.005 - 1.030 [facility] Color, Urine Dipstick Yellow Yellow [facility] Reflex to Culture Yes [facility] Clean Catch Urine 05/11/2023 7:22 PM EDT 05/11/2023 7:31 PM EDT Narrative Resulting Agency Comment Spec In Lab Brody Kaplan APRN URINE ORDERABLES Performing Organization Address [facility] Co de Phone Number [facility] [place] [address] * (ABNORMAL) pro-Brain Natriuretic Peptide (05/11/2023 7:11 PM EDT) NT-proBNP >35,000(H) <=124 pg/mL [facility] Blood 05/11/2023 7:11 PM EDT 05/11/2023 7:26 PM EDT Narrative Resulting Agency Comment Spec In Lab Radha Hollins MD CHEMISTRY ORDERABL ES Performing Organization Address City/[facility] Co de Phone Number [facility] [place] [address] * (ABNORMAL) Lactate, whole blood, send to lab ([facility]) (05/11/2023 2:47 PM EDT) Lactate WB 2.9(H) 0.5 - 2.2 mmol/L [facility] Blood 05/11/2023 2:47 PM EDT 05/11/2023 2:53 PM EDT Narrative Resulting Agency Comment Spec In Lab Juan Luis Gonzalez MD CHEMISTRY ORDERABLES Performing Organization Address City/State/[facility] Co de Phone Number [facility] [place] [address] * (ABNORMAL) CT Angiogram Abdomen & Pelvis [...] lead that requested your imaging first. ? Narrative [...] ? Electronically signed by: Cullen Narayanan MD, [facility] ([phone]), at 05/11/2023 4:37 PM Narrative 05/11/2023 4:37 [...] 610 mm2 Circumference: 88 mm Calcification: Mild Ekcdajz-gb-fcjpoevd height: Left: 6.2 mm Right: 5.8 mm THORACIC AORTA Description: Normal course and caliber. ??Mild diffuse atherosclerotic changes. No acute aortopathy noted. Commutator Inspector dimensions: Aortic root: 27.6 mm Max ascending aorta: 30.5 mm x 27.7 mm Suggested fluoroscopic angulation based on line extending through the nadirs of the three sinuses of Valsalva, set equidistant: ?? BELARUSIAN ??9 degrees; cranial 7 degrees MITRAL: Mitral [...] 610 mm2 Circumference: 88 mm Calcification: Mild Zugaxqc-kc-tblbhcct height: Left: 6.2 mm Right: 5.8 mm THORACIC AORTA Description: Normal course and caliber. Mild diffuse atheroscleroticchanges. No acute aortopathy noted. Commutator Inspector dimensions: Aortic root: 27.6 mm Max ascending aorta: 30.5 mm x 27.7 mm Suggested fluoroscopic angulation based on line extending through thenadirs of the three sinuses of Valsalva, set equidistant: BELARUSIAN 9 degrees; cranial 7 degrees MITRAL: Mitral [...] first. Electronically signed by: Cullen Narayanan MD, [facility]([phone]), at 05/11/2023 4:37 PM Antelmo Sharma MD IMG CT ORDERABLES * (ABNORMAL) Lactate, whole blood, send to lab ([facility]) (05/11/2023 9:29 AM EDT) Lactate WB 3.1(H) 0.5 - 2.2 mmol/L [facility] Blood 05/11/2023 9:29 AM EDT 05/11/2023 9:38 AM EDT Narrative Resulting Agency Comment Spec In Lab Juan Luis Gonzalez MD CHEMISTRY ORDERABLES [facility] [place] [address] * (ABNORMAL) Differential, Automated (05/11/2023 4:42 AM EDT) Neutrophil % 78.1 % [facility] Neutrophil Absolute 5.46 1.70 - 6.10 x10(3)/mc L [facility] Lymph % 10.6 % [facility] Lymphocytes Abs 0.7(L) 0.9 - 3.2 x10(3)/mc L [facility] Monocyte % 9.6 % [facility] Monocyte Abs 0.7 0.3 - 0.9 x10(3)/mc L [facility] Eos % 0.0 % [facility] Eosinophils Abs 0.0 0.0 - 0.4 x10(3)/mc L [facility] Basophil % 0.4 % [facility] Baso Absolute 0.0 0.0 - 0.1 x10(3)/mc L [facility] Immature Gran % 1.30 % [facility] Comment: Immature granulocytes(IG's)percentage and absolute count will include metamyelocytes, myelocytes, and promyelocytes. Blood smears from CBCs yielding IG's will be scanned manually for concordance. If this scan disagrees with the automated IG or if promyelocytes are noted, a manual differential will be performed. Immature Gran Absolute 0.09(H) 0.00 - 0.04 x10(3)/mc L [facility] Blood 05/11/2023 4:42 AM EDT 05/11/2023 4:49 AM EDT Narrative Resulting Agency Comment Spec In Lab Klaudia Reid MD HEMATOLOGY OR DERABLES [facility] [place] [address] * (ABNORMAL) Hemogram (05/11/2023 4:42 AM EDT) White Blood Cell 7.0 4.0 - 9.5 x10(3)/mc L [facility] Red Blood Cell 3.44(L) 4.00 - 5.21 x10(6)/mc L [facility] Hemoglobin 11.1(L) 11.7 - 15.5 g/dL [facility] Hematocrit 32.7(L) 35.7 - 45.8 % [facility] Mean Cell Volume 95.1(H) 82.6 - 94.4 fL [facility] Mean Cell Hemoglobin 32.3(H) 27.1 - 32.0 pg [facility] Mean Cell Hemoglobin Concentration 33.9 31.7 - 35.0 g/dL [facility] Platelet 165 145 - 357 x10(3)/mc L [facility] RDW Standard Deviation 43.1 37.0 - 46.0 fL [facility] RDW coefficient of variation 12.7 11.5 - 14.1 % [facility] Mean Platelet Volume 10.1 7.6 - 12.9 fL [facility] NRBC% auto 0.0 % [facility] ITAL LABORATORY NRBC Absolute 0.000 0.000 - 0.000 x10(3)/mc L [facility] Blood 05/11/2023 4:42 AM EDT 05/11/2023 4:49 AM EDT Narrative Resulting Agency Comment Spec In Lab Klaudia Reid MD HEMATOLOGY OR DERABLES Performing Organization Address [facility] Co de Phone Number [facility] [place] [address] * Heparin (unfractionated) Level (05/11/2023 4:42 AM EDT) UF Heparin 0.46 IU/mL [facility] HOSP ITAL LABORATORY Comment: Heparin (anti-Xa) [...] HEMATOLOGY ORDERAB LES Performing Organization Address [facility] Co de Phone Number [facility] [place] [address] * (ABNORMAL) Comprehensive metabolic panel (non-fasting) (05/11/2023 4:42 AM EDT) Pathologist [facility] Glucose 143 65 - 199 mg/dL [facility] Comment:Diabetes: >=200 mg/d L plus symptoms Blood Urea Nitrogen 42(H) 8 - 18 mg/dL [facility] Creatinine 1.24(H) 0.70 - 1.20 mg/dL [facility] Sodium 134(L) 135 - 145 mmol/L [facility] Potassium 4.6 3.5 - 5.0 mmol/L [facility] Comment: Please note: ??Patients with WBC >100,000 may have falsely elevated Potassium levels. ??For accurate Potassium quantification in these patients send serum separator tube (gold top) for subsequent determinations. ??Contact the Clinical Chemistry Laboratory if there are any questions. Chloride 99 98 - 107 mmol/L [facility] Carbon Dioxide 14(L) 22 - 31 mmol/L [facility] Anion Gap 21(H) 5 - 15 mmol/L [facility] Calcium 9.6 8.5 - 10.5 mg/dL [facility] Protein, Total 7.2 6.1 - 8.0 g/dL [facility] Albumin 3.7 3.2 - 5.2 g/dL [facility] Aspartate Aminotransferase 144(H) 0 - 30 unit/L [facility] Comment:result rechecked-ssc Alanine Aminotransferase 130(H) 0 - 30 unit/L [facility] Comment:result rechecked-ssc Alkaline Phosphatase 72 35 - 105 unit/L [facility] Bilirubin, Total 0.8 0.2 - 1.3 mg/dL [facility] Est Glomerular Filtration Rate 48(L) >=60 mL/min/1. 73 m?? [facility] Comment: This patient's estimated [...] Radha Hollins MD CHEMISTRY ORDERABL ES [facility] [place] [address] * EKG 12 Lead (05/10/2023 1:16 PM EDT) Ventricular rate 118 BPM MUSE SYSTEM Atrial Rate 118 BPM MUSE SYSTEM P-R Interval 152 ms MUSE SYSTEM QRS Duration 104 ms MUSE SYSTEM Q-T Interval 316 ms MUSE SYSTEM QTC Calculated (Bezet) 442 ms MUSE SYSTEM Calculated P [place] 29 degrees MUSE SYSTEM Calculated R [place] 18 degrees MUSE SYSTEM Calculated T [place] -173 degrees MUSE SYSTEM INTERPRETATION Sinus tachycardia Minimal voltage criteria for LVH, may be normal variant ( Eastern product ) Septal infarct , age undetermined ST & T wave abnormality, consider lateral ischemia Abnormal ECG When compared with ECG of 10-MAY-2023 07:59, Fusion complexes are no longer Present Premature ventricular complexes are no longer Present ST no longer depressed in Anterior leads Confirmed by MD Villareal Danette ([id number]) on 05/10/2023 8:47:46 PM MUSE SYSTEM 05/10/2023 1:16 PM EDT 05/10/2023 8:47 PM EDT Juan Luis Gonzalez MD ECG ORDERABLES MUSE SYSTEM * Lactate, whole blood, send to lab ([facility]) (05/10/2023 11:52 AM EDT) Lactate WB 1.8 0.5 - 2.2 mmol/L [facility] Blood 05/10/2023 11:5 2 AM EDT 05/10/2023 12:13 PM EDT Narrative Resulting Agency Comment Spec In Lab Juan Luis Gonzalez MD CHEMISTRY ORDERABLES [facility] [place] [address] * XR Chest One View (05/10/2023 11:16 [...] ? Electronically signed by: ALIX RUVALCABA MD, [facility] ([phone]), at 05/10/2023 1:25 PM Narrative 05/10/2023 1:25 [...] first. Electronically signed by: ALIX RUVALCABA MD, [facility]([phone]), at 05/10/2023 1:25 PM Juan Luis Gonzalez MD IMG DX ORDERABLES * EKG 12 Lead (05/10/2023 7:59 AM EDT) Ventricular rate 115 BPM MUSE SYSTEM Atrial Rate 115 BPM MUSE SYSTEM P-R Interval 142 ms MUSE SYSTEM QRS Duration 102 ms MUSE SYSTEM Q-T Interval 322 ms MUSE SYSTEM QTC Calculated (Bezet) 445 ms MUSE SYSTEM Calculated P [place] 36 degrees MUSE SYSTEM Calculated R [place] 28 degrees MUSE SYSTEM Calculated T [place] -119 degrees MUSE SYSTEM INTERPRETATION Sinus tachycardia [...] Differential, Automated (05/10/2023 2:28 AM EDT) Pathologist [facility] Neutrophil % 77.1 % [facility] Neutrophil Absolute 4.01 1.70 - 6.10 x10(3)/mc L [facility] Lymph % 14.0 % [facility] Lymphocytes Abs 0.7(L) 0.9 - 3.2 x10(3)/mc L [facility] Monocyte % 7.7 % [facility] ITAL LABORATORY Monocyte Abs 0.4 0.3 - 0.9 x10(3)/mc L [facility] Eos % 0.4 % [facility] Eosinophils Abs 0.0 0.0 - 0.4 x10(3)/mc L [facility] Basophil % 0.4 % [facility] ITAL LABORAT[facility] Baso Absolute 0.0 0.0 - 0.1 x10(3)/mc L [facility] Immature Gran % 0.40 % [facility] Comment: Immature granulocytes(IG's)percentage and absolute count will include metamyelocytes, myelocytes, and promyelocytes. Blood smears from CBCs yielding IG's will be scanned manually for concordance. If this scan disagrees with the automated IG or if promyelocytes are noted, a manual differential will be performed. Immature Gran Absolute 0.02 0.00 - 0.04 x10(3)/mc L [facility] Blood 05/10/2023 2:28 AM EDT 05/10/2023 2:57 AM EDT Narrative Resulting Agency Comment Spec In Lab Klaudia Reid MD HEMATOLOGY OR DERABLES [facility] [place] [address] * (ABNORMAL) Hemogram (05/10/2023 2:28 AM EDT) White Blood Cell 5.2 4.0 - 9.5 x10(3)/mc L [facility] Red Blood Cell 3.11(L) 4.00 - 5.21 x10(6)/mc L [facility] Hemoglobin 10.2(L) 11.7 - 15.5 g/dL [facility] Hematocrit 30.2(L) 35.7 - 45.8 % [facility] Mean Cell Volume 97.1(H) 82.6 - 94.4 fL [facility] Mean Cell Hemoglobin 32.8(H) 27.1 - 32.0 pg [facility] Mean Cell Hemoglobin Concentration 33.8 31.7 - 35.0 g/dL [facility] Platelet 151 145 - 357 x10(3)/mc L [facility] RDW Standard Deviation 44.9 37.0 - 46.0 fL [facility] RDW coefficient of variation 12.8 11.5 - 14.1 % [facility] Mean Platelet Volume 9.8 7.6 - 12.9 fL [facility] H[facility] LABOR[facility]ORY NRBC% auto 0.0 % [facility] ITAL LABORATORY NRBC Absolute 0.000 0.000 - 0.000 x10(3)/mc L [facility] Blood 05/10/2023 2:28 AM EDT 05/10/2023 2:57 AM EDT Narrative Resulting Agency Comment Spec In Lab Klaudia Reid MD HEMATOLOGY OR DERABLES [facility] [address] [place] [address] * (ABNORMAL) Comprehensive metabolic panel (non-fasting) (05/10/2023 2:28 AM EDT) Glucose 100 65 - 199 mg/dL [facility] Comment:Diabetes: >=200 mg/d L plus symptoms Blood Urea Nitrogen 30(H) 8 - 18 mg/dL [facility] Creatinine 0.90 0.70 - 1.20 mg/dL [facility] Sodium 134(L) 135 - 145 mmol/L [facility] Potassium 4.1 3.5 - 5.0 mmol/L [facility] Comment: Please note: ??Patients with WBC >100,000 may have falsely elevated Potassium levels. ??For accurate Potassium quantification in these patients send serum separator tube (gold top) for subsequent determinations. ??Contact the Clinical Chemistry Laboratory if there are any questions. Chloride 102 98 - 107 mmol/L [facility] Carbon Dioxide 20(L) 22 - 31 mmol/L [facility] Anion Gap 12 5 - 15 mmol/L [facility] Calcium 9.3 8.5 - 10.5 mg/dL [facility] Protein, Total 6.4 6.1 - 8.0 g/dL [facility] Albumin 3.7 3.2 - 5.2 g/dL [facility] Aspartate Aminotransferase 24 0 - 30 unit/L [facility] Alanine Aminotransferase 14 0 - 30 unit/L [facility] Alkaline Phosphatase 70 35 - 105 unit/L [facility] Bilirubin, Total 0.5 0.2 - 1.3 mg/dL [facility] Est Glomerular Filtration Rate 70 >=60 mL/min/1. 73 m?? [facility] Comment: This patient's estimated [...] CHEMISTRY ORDERABL ES Performing Organization Address [facility] [place] [address] * Heparin (unfractionated) Level (05/10/2023 2:28 AM EDT) UF Heparin 0.37 IU/mL [facility] HOSP ITAL LABORATORY Comment: Heparin (anti-Xa) [...] HEMATOLOGY ORDERAB LES Performing Organization Address [facility]/ZIP Co de Phone Number [facility] [place] [address] * (ABNORMAL) Differential, Automated (05/09/2023 4:00 AM EDT) Neutrophil % 81.7 % [facility] SP[facility] LABORATORY Neutrophil Absolute 5.26 1.70 - 6.10 x10(3)/mc L [facility] Lymph % 10.7 % [facility] LABORAT[facility] Lymphocytes Abs 0.7(L) 0.9 - 3.2 x10(3)/mc L [facility] Monocyte % 6.5 % [facility] ITAL LABORAT[facility] Monocyte Abs 0.4 0.3 - 0.9 x10(3)/ L [facility] Eos % 0.5 % [facility] Eosinophils Abs 0.0 0.0 - 0.4 x10(3)/mc L [facility] Basophil % 0.3 % [facility] Baso Absolute 0.0 0.0 - 0.1 x10(3)/ L [facility] Immature Gran % 0.30 % [facility] Comment: Immature granulocytes(IG's)percentage and absolute count will include metamyelocytes, myelocytes, and promyelocytes. Blood smears from CBCs yielding IG's will be scanned manually for concordance. If this scan disagrees with the automated IG or if promyelocytes are noted, a manual differential will be performed. Immature Gran Absolute 0.02 0.00 - 0.04 x10(3)/ L [facility] Blood 05/09/2023 4:00 AM EDT 05/09/2023 4:19 AM EDT Narrative Resulting Agency Comment Spec In Lab Klaudia Reid MD HEMATOLOGY OR DERABLES Performing Organization Address City/State/[facility] Co de Phone Number [facility] [place] [address] * (ABNORMAL) Hemogram (05/09/2023 4:00 AM EDT) White Blood Cell 6.4 4.0 - 9.5 x10(3)/mc L [facility] Red Blood Cell 3.15(L) 4.00 - 5.21 x10(6)/mc L [facility] Hemoglobin 10.2(L) 11.7 - 15.5 g/dL [facility] Hematocrit 30.3(L) 35.7 - 45.8 % [facility] Mean Cell Volume 96.2(H) 82.6 - 94.4 fL [facility] Mean Cell Hemoglobin 32.4(H) 27.1 - 32.0 pg [facility] Mean Cell Hemoglobin Concentration 33.7 31.7 - 35.0 g/dL [facility] Platelet 151 145 - 357 x10(3)/mc L [facility] RDW Standard Deviation 44.7 37.0 - 46.0 fL [facility] RDW coefficient of variation 12.8 11.5 - 14.1 % [facility] Mean Platelet Volume 9.4 7.6 - 12.9 fL [facility] NRBC% auto 0.0 % [facility] NRBC Absolute 0.000 0.000 - 0.000 x10(3)/mc L [facility] Blood 05/09/2023 4:00 AM EDT 05/09/2023 4:19 AM EDT Narrative Resulting Agency Comment Spec In Lab Klaudia Reid MD HEMATOLOGY OR DERABLES [facility] [place] [address] * Heparin (unfractionated) Level (05/09/2023 4:00 AM EDT) UF Heparin 0.47 IU/mL [facility] Comment: Heparin (anti-Xa) levels should [...] Radha Hollins MD HEMATOLOGY ORDERAB LES [facility] [place] [address] * (ABNORMAL) Comprehensive metabolic panel (non-fasting) (05/09/2023 4:00 AM EDT) Glucose 108 65 - 199 mg/dL [facility] Comment:Diabetes: >=200 mg/d L plus symptoms Blood Urea Nitrogen 31(H) 8 - 18 mg/dL [facility] Creatinine 1.03 0.70 - 1.20 mg/dL [facility] Sodium 137 135 - 145 mmol/L [facility] Potassium 4.4 3.5 - 5.0 mmol/L [facility] Comment: Please note: ??Patients with WBC >100,000 may have falsely elevated Potassium levels. ??For accurate Potassium quantification in these patients send serum separator tube (gold top) for subsequent determinations. ??Contact the Clinical Chemistry Laboratory if there are any questions. Chloride 102 98 - 107 mmol/L [facility] Carbon Dioxide 20(L) 22 - 31 mmol/L [facility] Anion Gap 15 5 - 15 mmol/L [facility] Calcium 9.3 8.5 - 10.5 mg/dL [facility] Protein, Total 6.6 6.1 - 8.0 g/dL [facility] Albumin 3.8 3.2 - 5.2 g/dL [facility] Aspartate Aminotransferase 32(H) 0 - 30 unit/L [facility] Alanine Aminotransferase 18 0 - 30 unit/L [facility] Alkaline Phosphatase 78 35 - 105 unit/L [facility] Bilirubin, Total 0.5 0.2 - 1.3 mg/dL [facility] Est Glomerular Filtration Rate 60 >=60 mL/min/1. 73 m?? [facility] Comment: This patient's estimated [...] CHEMISTRY ORDERABL ES Performing Organization Address [facility]/ZIP Co de Phone Number [facility] [place] [address] * (ABNORMAL) pro-Brain Natriuretic Peptide (05/08/2023 4:00 PM EDT) NT-proBNP 25,503(H) <=124 pg/mL [facility] Blood Venous Draw / Unknown 05/08/2023 4:00 PM EDT 05/08/2023 4:25 PM EDT Narrative Resulting Agency Comment Spec In Lab Juan Luis Gonzalez MD CHEMISTRY ORDERABLES Performing Organization Address [facility] Co de Phone Number [facility] [place] [address] * Magnesium (05/08/2023 4:00 PM EDT) Magnesium 0.82 0.69 - 1.07 mmol/L [facility] Blood 05/08/2023 4:00 PM EDT 05/08/2023 4:06 PM EDT Narrative Resulting Agency Comment Spec In Lab Enrique Chua MD CHEMISTRY ORDERABLES Performing Organization Address [facility] Co de Phone Number [facility] [place] [address] * Potassium (05/08/2023 4:00 PM EDT) Potassium 3.9 3.5 - 5.0 mmol/L [facility] Comment: Please note: ??Patients [...] MD CHEMISTRY ORDERABL ES Performing Organization Address [facility] de Phone Number [facility] [place] [address] * Heparin (unfractionated) Level (05/08/2023 4:00 PM EDT) Pathologist [facility] UF Heparin 0.43 IU/mL [facility] HOSP ITAL LABORATORY Comment: Heparin (anti-Xa) [...] ORDERAB LES Performing Organization Address [facility] Co de Phone Number [facility] [place] [address] * EKG 12 Lead (05/08/2023 3:51 PM EDT) Ventricular rate 98 BPM MUSE SYSTEM Atrial Rate 98 BPM MUSE SYSTEM P-R Interval 150 ms MUSE SYSTEM QRS Duration 102 ms MUSE SYSTEM Q-T Interval 358 ms MUSE SYSTEM QTC Calculated (Bezet) 457 ms MUSE SYSTEM Calculated P [place] 38 degrees MUSE SYSTEM Calculated R [place] 48 degrees MUSE SYSTEM Calculated T [place] -112 degrees MUSE SYSTEM INTERPRETATION Sinus rhythm with frequent and consecutive Premature ventricular and fusion complexes Septal infarct , age undetermined ST & T wave abnormality, consider anterolateral ischemia Abnormal ECG When compared with ECG of 09-NOV-2022 11:17, T wave inversion now evident in Anterolateral leads Confirmed by MD Harshil, Enrique Bell ([id number]) on 05/10/2023 8:11:46 AM MUSE SYSTEM 05/08/2023 3:51 PM EDT 05/10/2023 8:11 AM EDT Radha Hollins MD ECG ORDERABLES MUSE SYSTEM * (ABNORMAL) Differential, Automated (05/08/2023 11:38 AM EDT) Neutrophil % 71.3 % [facility] Neutrophil Absolute 2.91 1.70 - 6.10 x10(3)/mc L [facility] Lymph % 19.1 % [facility] Lymphocytes Abs 0.8(L) 0.9 - 3.2 x10(3)/mc L [facility] Monocyte % 9.0 % [facility] Monocyte Abs 0.4 0.3 - 0.9 x10(3)/mc L [facility] Eos % 0.2 % [facility] Eosinophils Abs 0.0 0.0 - 0.4 x10(3)/mc L [facility] Basophil % 0.2 % [facility] Baso Absolute 0.0 0.0 - 0.1 x10(3)/mc L [facility] Immature Gran % 0.20 % [facility] Comment: Immature granulocytes(IG's)percentage and absolute count will include metamyelocytes, myelocytes, and promyelocytes. Blood smears from CBCs yielding IG's will be scanned manually for concordance. If this scan disagrees with the automated IG or if promyelocytes are noted, a manual differential will be performed. Immature Gran Absolute 0.01 0.00 - 0.04 x10(3)/mc L [facility] Blood 05/08/2023 11:3 8 AM EDT 05/08/2023 11:44 AM EDT Narrative Resulting Agency Comment Spec In Lab Lincoln Sal MD HEMATOLOGY ORDERA BLES [facility] [place] [address] * (ABNORMAL) Hemogram (05/08/2023 11:38 AM EDT) White Blood Cell 4.1 4.0 - 9.5 x10(3)/mc L [facility] Red Blood Cell 3.05(L) 4.00 - 5.21 x10(6)/mc L [facility] Hemoglobin 10.2(L) 11.7 - 15.5 g/dL [facility] Hematocrit 29.6(L) 35.7 - 45.8 % [facility] Mean Cell Volume 97.0(H) 82.6 - 94.4 fL [facility] Mean Cell Hemoglobin 33.4(H) 27.1 - 32.0 pg [facility] Mean Cell Hemoglobin Concentration 34.5 31.7 - 35.0 g/dL [facility] Platelet 136(L) 145 - 357 x10(3)/mc L [facility] RDW Standard Deviation 44.3 37.0 - 46.0 fL [facility] RDW coefficient of variation 12.6 11.5 - 14.1 % [facility] Mean Platelet Volume 9.4 7.6 - 12.9 fL [facility] NRBC% auto 0.0 % [facility] ITAL [facility]ORAT[facility] NRBC Absolute 0.000 0.000 - 0.000 x10(3)/ L [facility] Blood 05/08/2023 11:3 8 AM EDT 05/08/2023 11:44 AM EDT Narrative Resulting Agency Comment Spec In Lab Lincoln Sal MD HEMATOLOGY ORDERA BLES [facility] [place] [address] * TSH (05/08/2023 11:38 AM EDT) Thyroid Stimulating Hormone 1.27 0.27 - 4.20 mcIU/mL [facility] Comment: Reference Interval (mcIU/mL): Females: ??First Trimester: 0.23-3.88 ??Second Trimester: 0.22-3.90 ??Third Trimester: 0.44-4.66 Blood 05/08/2023 11:3 8 AM EDT 05/08/2023 11:44 AM EDT Narrative Resulting Agency Comment Spec In Lab Enrique Chua MD CHEMISTRY ORDERABLES Performing Organization Address City/[facility]/ZIP Co de Phone Number [facility] [place] [address] * (ABNORMAL) Phosphorus (05/08/2023 11:38 AM EDT) Phosphorus 4.7(H) 2.5 - 4.5 mg/dL [facility] Blood 05/08/2023 11:3 8 AM EDT 05/08/2023 11:44 AM EDT Narrative Resulting Agency Comment Spec In Lab Enrique Chua MD CHEMISTRY ORDERABLES Performing Organization Address [facility] Co de Phone Number [facility] [place] [address] * Magnesium (05/08/2023 11:38 AM EDT) Magnesium 0.76 0.69 - 1.07 mmol/L [facility] [facility] Blood 05/08/2023 11:3 8 AM EDT 05/08/2023 11:44 AM EDT Narrative Resulting Agency Comment Spec In Lab Enrique Chua MD CHEMISTRY ORDERABLES Performing Organization Address [facility] Co de Phone Number [facility] [place] [address] * (ABNORMAL) Basic Metabolic Panel (non-fasting) (05/08/2023 11:38 AM EDT) Glucose 97 65 - 199 mg/dL [facility] Comment:Diabetes: >=200 mg/d L plus symptoms Blood Urea Nitrogen 27(H) 8 - 18 mg/dL [facility] Creatinine 1.02 0.70 - 1.20 mg/dL [facility] Sodium 139 135 - 145 mmol/L [facility] Potassium 4.2 3.5 - 5.0 mmol/L [facility] Comment: Please note: ??Patients with WBC >100,000 may have falsely elevated Potassium levels. ??For accurate Potassium quantification in these patients send serum separator tube (gold top) for subsequent determinations. ??Contact the Clinical Chemistry Laboratory if there are any questions. Chloride 105 98 - 107 mmol/L [facility] Carbon Dioxide 20(L) 22 - 31 mmol/L [facility] Anion Gap 14 5 - 15 mmol/L [facility] Calcium 9.4 8.5 - 10.5 mg/dL [facility] Est Glomerular Filtration Rate 60 >=60 mL/min/1. 73 m?? [facility] Comment: This patient's estimated [...] Lab Enrique Chua MD CHEMISTRY ORDERABLES [facility] [place] [address] * ECHO COMPLETE (05/08/2023 11:02 AM EDT) Pathologist [facility] EF 25 [employer] Anatomical Region Laterality Modality Cardiac Other 05/08/2023 10:0 3 AM EDT Narrative 05/08/2023 11:51 AM EDT ? Echocardiogram Report Name: PURNIMA THACKER ?Study Date: 05/08/2023 10:03 AMBP: 92/64 mmHg ? Patient Location: CVCC^CV29^A : 1955 ? Height: 155 cm ? Account: [id number] Age: 67 yrs ? Weight: 78 kg Gender: Female ?BSA: 1.8 m2 Ordering Physician: ENRIQUE CHUA Referring Physician: MARIO ALBERTO CHIN Performed By: CHUCKIE Canchola Reason For Study: SAVR Stenosis Exam Location: [facility]. Interpretation Summary -Left ventricle [...] worsening stenosis. Mitral regurgitation is similar. Procedure Complete-12838. Satisfactory quality. There is normal sinus rhythm. [...] Study Date: :03 AMBP: 92/64 mmHg Patient Location:[facility]^CV29^A : 1955 Height: 155 cm Account: [id number] Age: 67 yrs Weight: 78 kg Gender: Female BSA: 1.8 m2 Ordering Physician: ENRIQUE CHUA Referring Physician: MARIO ALBERTO CHIN Performed By: CHUCKIE Canchola Reason For Study: SAVR Stenosis Exam Location: [facility]. Interpretation Summary -Left ventricle [...] suggestsworsening stenosis. Mitral regurgitation is similar. Procedure Complete-05648. Satisfactory quality. There is normal sinus rhythm. 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 Mild coronary artery disease by [facility] 11/09/2022 Mixed connective tissue disease [...] ejection fraction Mild coronary artery disease by [facility] 11/09/2022 Stenosis of prosthetic aortic [...] dose on Wed05/12/23 at 1030, Until Discontinued, [place] teeth, Routine Given 05/12/2023 10:04 AM EDT [...] at 0831, Side port TKO rate, per [facility] flush protocol Rate/Dose Verify 05/13/2023 6:00 AM EDT 10 mL/hr 10 mL/hr Rate/Dose Verify 05/13/2023 4:00 AM EDT 10 mL/hr 10 mL/h r Rate/Dose Verify 05/13/2023 2:00 AM EDT 10 mL/hr 10 mL/h r sodium chloride 0.9% infusion 10-30 mL/hr, Intravenous, DAILY PRN, Starting on Wed05/12/23 at 0944, Until Wed05/17/23 at 0831, Side port TKO rate, per [facility] flush protocol. Rate/Dose Verify [...] post-op day 1 in the AM Give VT if unable to take PO, Routine Group [...] Routine documented in this encounter Care Teams Pre Owned Sales Manager Relationship Specialty Start Date End Date Magdalena Acosta MD [address] [place] [address] PCP - General Family Medicine 02/05/23 documented as of this encounter
--- OUTSIDE RECORDS SUMMARY | 2024-05-04 14:09 | XMS_ITS | Encounter Summary ---
Author Organization [facility] [place] [address] Care Team Providers Care Vascular Radiologist Name Role Phone Magdalena Acosta MD Primary Care Provider [phone] Reason for Visit * Auth/Cert (Routine) Specialty Diagnoses / Procedures Referred By Contac t Referred To Contact Diagnoses Symptomatic severe aortic stenosis with low ejection fraction NSTEMI, CHF Enrique Chua MD [facility] [place] [address] [facility] Referral ID Status Reason Start Date Expiration Date Visits Re quested Visits Authorized [id number] 1 1 Encounter Details Date Type Department Care Team (Late st Contact Info) Description 05/12/2023 2:50 PM EDT - 05/12/2023 3:50 PM EDT [place] [address] Antelmo Sharma MD [facility] [place] [address] CARDIAC CATHETERIZATION Social History Tobacco Use Types [...] Patient Age: 67 y.o. Birthdate: 1955 Language: Italian Race: White Ethnicity: Not nor Admit Date: 05/08/2023 Discharge Date: 05/22/2023 Attending Physician: Alirio Hudson MD Follow-up Recommendations for Providers: Please continue routine management of cardiovascular risk factors including blood pressure, lipids,glucose, etc. Please note any medication changes. Patient to follow up with PCP, Magdalena Acosta MD, or Primary Private Detective, Avis Mejia MD, in ~ 7-10 days. Patient to follow up with Venetian Blind Cleaner And Repairer, Dr. Antelmo Sharma, in 2 weeks with an EKG, Echo, CBC, and CMP. Patient to follow up with Nephrology, their office to arrange. Nqae-Ruteph-kv interval: After initial 30 day follow-up appointment , all TAVR patients will follow-up again in one year with an echo. 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 INTERVENTIONL RAD PRG CATH PLMT LEFT HEART CATH & ARTS W/INJ & ANGIO IMG S&I N/A 11/09/2022 CORONARY ANGIOGRAPHY; W [facility],POSSIBLE PCI (WRVU 5.6) performed by Mario Alberto Escobedo MD at [facility] CATH LABS PRG COMBINED RIGHT & LEFT HEART CATH W/INJ L VENTRICULOGRAPHY, IMG S&I N/A 05/12/2023 COMBINED RIGHT & LEFT HEART CATH,INC INJ FOR L VENTRICULOGRAPHY (WRVU 5.99) performed by Antelmo Sharma MD at [facility] CATH LABS PRO AORTOPLAS FOR SUPRAVALV STEN N/A 09/21/2016 @AORTOPLASTY FOR SUPRAVALVULAR STENOSIS (WRVU 29.33) performed by Alirio Hudson MD at [facility] MAIN OR PRO REPLACE AORTIC VALVE (TAVR/FEDERICO)PERC FEMORAL ARTERY APPROACH 05/12/2023 @TRANSCATHETER AORTIC VALVE REPLACEMENT (TAVR), PERCUTANEOUS FEMORAL (WRVU 22.47) performed by Alirio Hudson MD at [facility] CATH LABS PRO REPLACEMENT PROSTHETIC AORTIC VALVE OPEN W CARDIOPULMONARY BYPASS HOMOGRF/STENT N/A 09/21/2016 @REPLACE AORTIC VALVE, OPEN, W\CPB, W\PROSTHETIC VALVE (WRVU 41.32) performed by Alirio Hudson MD at [facility] MAIN OR Prior To Admission Medications Medications [...] Major Procedures/Operations: 05/12/23: Successful right transfemoral TAVR Kgdru-hz-Qkoce with a 23 mm Lai 3 THV. Left coronary protection with left main MINNA. Hospital Course: #Severe prosthetic s/p valve in valve TF TAVR #Low coronary heights s/p left main stent for coronary protection #Type 2 NSTEMI, present on arrival, resolved #Acute decompensated HFrEF #Cardiogenic shock #EVANS / Cardiorenal syndrome Purnima Thacker was admitted to [facility] on 05/08/2023 via the Cardiology Service [...] and she was brought to the laborer tree tapping the following morning where Drs. Alirio Hudson [...] if you have questions. Please call your Venetian Blind Cleaner And Repairer's office if you have any discharge or drainage from your procedural sites. Your Venetian Blind Cleaner And Repairer, Dr. Antelmo Sharma and/or the Borough Coordinator may be reached at . Antibiotic prophylaxis: You will need to take antibiotics prior to many invasive tests and treatments, such as dental cleaning, which should be done every 6 months. Your primary care physician or your dentist can prescribe this medication. Please refer to the card with the [place] [employer] Guidelines for more information. You have been provided with a copy of this card. Please refer to the [place] [employer] Guidelines for more information. Good [...] should resume a low fat, low cholesterol, [place] [employer] Diet Driving: No restrictions. Shower/Bath: You may shower daily. No baths, soaking, or swimming for the first week. Wound care: Wash the sites daily with soap and rinse well, pat dry. Assess for any signs of infection such as increased redness, pain, warmth or drainage. Please call your db2 developer's office if you have any discharge or drainage from your procedural sites. If there is a lot of swelling, apply mamta wraps during the day and remove at bedtime. Elevate your legs when you are sitting. Home oxygen therapy: N/A Follow up appointments: Please schedule a follow-up appointment with your PCP, Magdalena Acosta MD, or Primary Private Detective in ~ 7-10 days. You have a follow-up appointment with your Venetian Blind Cleaner And Repairer, Dr. Antelmo Sharma, in 2 weeks with an EKG, Echo, and labs prior to your appointment. You will need follow-up with Nephrology, their office will arrange. Myhh-Ixmkrh-ud interval: After initial 30 day follow-up appointment [...] 11:00 AM Magdalena Peralta MD Rheumatology at [facility] Arrive at: [facility] [address] [phone] 02/11/2024 2:00 PM Marek Bonilla MD Dermatology at [place] Arrive at: [facility] [address] [phone] Future Orders Complete By Expires Type and Screen Future Surgery, [facility] SAME DAY PROGRAM ONLY) [HII0464 Custom] 05/11/2023 Process Instructions: This test is intended ONLY for patients with upcoming surgery for testing prior to the day of surgery obtained through the same day program (4V or SDP). For ALL OTHER PATIENTS, order a Type and Screen (MXR225) This order includes the physician order for an ABO Recheck if requested by the Blood Bank. Scheduling Instructions: Comments: Questions: Date of surgery: CBC (with Diff) [NZB554 Custom] 06/05/2023 12/05/2023 Process Instructions: INCLUDES: WBC, RBC, Hgb, Hct, Platelets, RBC Indices and Differential Scheduling Instructions: Comments: Questions: Comprehensive metabolic panel (non-fasting) [LAB17 Custom] 06/05/2023 08/20/2023 Process Instructions: INCLUDES: Calcium, T Protein, Albumin, AST, ALT, Alk Phos, T Bili, BUN, Creat, GFR, Glucose, Lytes. Scheduling Instructions: Comments: Questions: Echocardiogram Transthoracic [68278 CPT(R)] 06/05/2023 12/05/2023 Process Instructions: Scheduling Instructions: Questions: Where will study be performed?: [facility] Clinics Does the patient have Congenital Heart Disease?: Does patient require sedation?: GA rationale: EKG 12 Lead [95604 CPT(R)] 06/05/2023 12/05/2023 Process Instructions: Scheduling Instructions: Questions: Which location will this be performed?: [place] Is a rhythm strip needed?: No [employer] Devices [EQ161 Custom] As directed Process Instructions: Scheduling Instructions: Questions: Device Needed: WALKER (E0143) Patient Height (cm): 154.9 cm (5' 0.98) Patient Weight: 75.4 kg (166 lb 3.2 oz) Diagnosis: Unsteady gait when walking Referral to Cardiac Rehab [TSG449 Custom] As directed Process Instructions: If no progress note charted, please enter Clinical details in comments. Scheduling Instructions: Questions: My question or request is: s/p TAVR. Cardiac rehab at [facility]. Referral to Home Health [REF34 Custom] As directed Process Instructions: If no progress note charted, please enter Clinical details in comments. Scheduling Instructions: Comments: DOCUMENTATION FOR VNA SERVICES PATIENT'S LOCATION: Purnima Thacker [address] [place] [address] [phone] (home) Medication Coordinator's Name: Irineo and brother Raymond In discussion with the attending physician, it is certified that this patient is under his/her careand that MD, or an FRENCH DRAWER, AGRICULTURAL EDUCATION PROFESSOR, or PA who is working directly with him/her, had a cpmk-pn-aitz encounter that meets the physician erfp-xf-xvix encounter requirements with this patient on 05/22/2023. [...] managing ADLs. HOME HEALTH CARE AGENCY: [facility]. [address] [place] [facility] [address] PHONE: [phone] FAX: [phone] Start of care: Ideally 24-48 hours after [...] [address] / [facility] [phone] All VNA agencies which cover the area of patient's residence have been reviewed, either verbally joao writing, and patient has chosen the home health care agency noted. Questions: Disciplines Requested: Physical Therapy Occupational Therapy Discharge References/Attachments None Arrangements for VNA/home care: As above. (delete if no VNA) Signed: EKATERINA NAVARRETE [facility] Section of Cardiac Surgery Date: 05/22/2023 CC: Magdalena Acosta MD FerrisMario Alberto maxwell MD [address] [place] [address] documented in this encounter Discharge Instructions * Patient Instructions* Vinod Juárez PA - 05/22/2023 9:32 AM EDT TAVR Discharge Instructions: Call your doctor if: You have a fever of greater than 101 degrees, shaking chills, if you develop redness or drainage from your procedure sites, or if you have questions. Please call your Venetian Blind Cleaner And Repairer's office if you have any discharge or drainage from your procedural sites. Your Venetian Blind Cleaner And Repairer, Dr. Antelmo Sharma and/or the Borough Coordinator may be reached at . Antibiotic prophylaxis: You will need to take antibiotics prior to many invasive tests and treatments, such as dental cleaning, which should be done every 6 months. Your primary care physician or your dentist can prescribe this medication. Please refer to the card with the [place] [employer] Guidelines for more information. You have been provided with a copy of this card. Please refer to the [place] [employer] Guidelines for more information. Good [...] should resume a low fat, low cholesterol, [place] [employer] Diet Driving: No restrictions. Shower/Bath: You may shower daily. No baths, soaking, or swimming for the first week. Wound care: Wash the sites daily with soap and rinse well, pat dry. Assess for any signs of infection such as increased redness, pain, warmth or drainage. Please call your db2 developer's office if you have any discharge or drainage from your procedural sites. If there is a lot of swelling, apply mamta wraps during the day and remove at bedtime. Elevate your legs when you are sitting. Home oxygen therapy: N/A Follow up appointments: Please schedule a follow-up appointment with your PCP, Magdalena Acosta MD, or Primary Private Detective in ~ 7-10 days. You have a follow-up appointment with your Venetian Blind Cleaner And Repairer, Dr. Antelmo Sharma, in 2 weeks with an EKG, Echo, and labs prior to your appointment. You will need follow-up with Nephrology, their office will arrange. Soqc-Ykdxmn-vu interval: After initial 30 day follow-up appointment [...] ins ( tef) Haven Ba, PT Pager: [phone] Physical Therapy Inpatient Rehabilitation Department * Nico [...] 0600 and on the weekends please page [phone]. * Jory Paniagua - 05/20/2023 3:52 PM [...] vomiting Last Bowel Movement: 05/20/23 Jory Paniagua Environmental Health And Safety Intern * Tong Mike, OT - 05/20/2023 3:16 [...] 05/18/2023 IR Chest Tube Placement Right 05/18/[address] [facility] INTERVENTIONL RAD PRG CATH PLMT LEFT HEART CATH & ARTS W/INJ & ANGIO IMG S&I N/A 11/09/2022 CORONARY ANGIOGRAPHY; W [facility],POSSIBLE PCI (WRVU 5.6) performed by Mario Alberto Escobedo MD at [facility] CATH LABS PRG COMBINED RIGHT & LEFT HEART CATH W/INJ L VENTRICULOGRAPHY, IMG S&I N/A 05/12/2023 COMBINED RIGHT & LEFT HEART CATH,INC INJ FOR L VENTRICULOGRAPHY (WRVU 5.99) performed by Antelmo Sharma MD at [facility] CATH LABS PRO AORTOPLAS FOR SUPRAVALV STEN N/A 09/21/2016 @AORTOPLASTY FOR SUPRAVALVULAR STENOSIS (WRVU 29.33) performed by Alirio Hudson MD at [facility] MAIN OR PRO REPLACE AORTIC VALVE (TAVR/FEDERICO)PERC FEMORAL ARTERY APPROACH 05/12/2023 @TRANSCATHETER AORTIC VALVE REPLACEMENT (TAVR), PERCUTANEOUS FEMORAL (WRVU 22.47) performed by Alirio Hudson MD at [facility] CATH LABS PRO REPLACEMENT PROSTHETIC AORTIC VALVE OPEN W CARDIOPULMONARY BYPASS HOMOGRF/STENT N/A 09/21/2016 @REPLACE AORTIC VALVE, OPEN, W\CPB, W\PROSTHETIC VALVE (WRVU 41.32) performed by Alirio Hudson MD at [facility] MAIN OR Social History: Patient lives alone. Home Setup: Pt lives on one level with tub shower and three steps to enter. DME: none used PAINTER APPRENTICE Baseline ADL/Mobility: Independent with ADLs and IADLs. 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 Total Minutes, Occupational Therapy: 28 ([phone]) OT Evaluation Code Rationale: Diagnosis & Pertinent Co-Morbidities affecting Plan of Care: see PMHx Occupational Profile & Client History: Brief Expanded Extensive x Assessment of Occupational Performance: 1-3 performance deficits 3-5 performance deficits x 5 + performance deficits Clinical Decision Making: Low Moderate High x Clinical decision making of moderate complexity using standardized patient assessment instrument and measurable assessment of functional outcome. Pager: [phone] TONG MIKE OT 05/20/2023 Occupational Therapy Rehabilitation [...] 0600 and on the weekends please page [phone]. * Rylie Rodriguez MD - 05/19/2023 3:59 [...] and plan. Cynthia Blackburn MD Nephrology Pager: [phone] * Diana Espino - 05/19/2023 1:49 PM EDT Printed Circuit Boards Solder Leveler Encounter Note Patient Name: Purnima Thacker : [id number] MR#: [id number] Admit Date: 05/08/2023 9:14 AM Hospital Day [...] Treatment Number PT: 3 Patient profile: Purnima Thcaker is a 67 y.o. female [...] as stated. Total Minutes, Physical Therapy: 38 ([phone]) Henrik Navarrete PTA Pager: [phone] Physical Therapy Inpatient Rehabilitation Department * Nico [...] 0600 and on the weekends please page [phone]. * Laure Ricks PA - 05/19/2023 7:56 [...] Ricks PA-C Interventional Radiology IR Team Pager [phone] * Consuelo Espinoza RN - 05/18/2023 4:13 PM EDT ANGIO NURSING DATABASE Name: Purnima Thacker Date of : 1955 AGE: 67 y.o. Address: [address] [place] [address] (home) Mobile: No relevant phone numbers on [...] fraction I35.0 Mild coronary artery disease by [facility] 11/09/2022 I25.10 Heart failure with reduced [...] and plan. Cynthia Blackburn MD Nephrology Pager: [phone] * Magdalena Puri, KENO WRITER/RUNNER - 05/18/2023 10:51 AM EDT Images from the original note were not included. [facility] [place] [address] STRUCTURAL HEART DISEASE CONSULTATION NOTE PRIMARY CARE [...] stenosis. She is now status post TAVR Xefel-gy-Vmbtw with a 23 mm Lai 3 THV 05/12/[address] Sharma. Preliminary findings: Successful right transfemoral TAVR Ufjdr-rb-Rxywp with a 23 mm Lai 3 THV. [...] ejection fraction Mild coronary artery disease by [facility] 11/09/2022 Heart failure with reduced ejection [...] tablet 81 mg 81 mg Oral Daily ModocMara ernandez APRN 81 mg at 05/18/23 0826 ondansetron (pf) (Zofran) (2 mg/mL) injection 4 mg 4 mg Intravenous Q8H PRN ModocMara ernandez APRN4 mg at 05/12/23 0736 pantoprazole EC (Protonix) tablet 40 mg 40 mg Oral Daily MaggieMara ernandez APRN 40 mg at 05/18/23 0826 Or pantoprazole (Protonix) injection 40 mg 40 mg Intravenous Daily ModocMara ernandez APRN 40 mg at 05/12/23 1004 senna-docusate (Pericolace) 8.6-50 mg per tablet 2 tablet 2 tablet Oral Daily MaggieMara ernandez APRN 2 tablet at 05/16/232111 bisacodyL (Dulcolax) suppository 10 mg 10 mg Rectal Daily PRN MaggieMara ernandez APRN melatonin tablet 6 mg 6 mg Oral Nightly PRN ModocMara ernandez APRN 6 mg at 05/17/232024 influenza vaccine adjuvanted (Adult 65 Yrs +) (FluAD Quad) (PF) IM injection 0.5 mL 0.5 mL Intramuscular Prior to discharge ModocMara ernandez APRN FAMILY HISTORY: No family history [...] stenosis. She is now status post TAVR Kxitu-ba-Extcx with a 23 mm Lai 3 THV [...] Magdalena Puri APRN Structural Heart Team Pager [phone] Team Office Please see addendum by Dr. Sharma for final plan and recommendations Associated attestation - Antelmo Sharma MD - 05/19/2023 10:52 PM EDT I have reviewed Magdalena Puri APRN's above history and I agree with the details as written. The assessment and plan were formulated in discussion with me and I agree with them as documented. Antelmo Sharma MD Pager [phone] * Nico Palacios PA - 05/18/2023 8:13 [...] 0600 and on the weekends please page [phone]. * Loli Hernandez, PT - 05/17/2023 5:27 [...] plan as stated. Time IN / OUT: 4678-0823 Total Minutes, Physical Therapy: 54 Billing Code: te-sx2, te-f, angely HERNANDEZ PT Pager: [phone] Physical Therapy Inpatient Rehabilitation Department * Cynthia [...] Well controlled. Cynthia Blackburn MD Nephrology Pager: [phone] * Mara Serrano, KENO WRITER/RUNNER - 05/17/2023 8:26 AM EDT Cardiac Surgery [...] 0600 and on the weekends please page [phone]. * Guerda Del Valle C - 05/16/2023 10:44 AM EDT Nutrition Services Note - Low Nutrition Acuity Purnima Thacker is a 67 y.o. female Reason for intervention: hospital day 9 Nutrition Plan: Continue diet order Encourage good PO Lasix and Zofran noted Added special serve: open containers Monitor weight Patient scheduled for a hospital day 9 nutrition evaluation. Backfiller met with pt at bedside. Pt reports that her appetite and PO has much improved since admission. Denies nausea/vomiting or trouble chewing/swallowing. Backfiller provided snack list but pt not interested in adding snacks at this time. Her only concern was that she is worried that she will eat too much which will cause too much pressure in her stomach. Backfiller assured pt and suggested eating smaller but [...] Last Bowel Movement: 05/10/23 Guerda Del Valle Environmental Health And Safety Intern * Vinod Juárez PA - 05/16/2023 [...] 0600 and on the weekends please page [phone]. * Michael Jeffers MD - 05/16/2023 8:11 AM EDT Images from the original note were not included. Hypertension-Nephrology Inpatient Follow-up Purnima Thacker [id number] 1955 ID: 67 y.o. old female seen [...] IRONSAT 12 (L) 05/16/2023 SFOLATE >20.0 07/03/2022 [id number] 07/03/2022 Lab Results Component Value Date [...] Dr. Ayoub. Please contact me at phone: [phone] or pager: [phone] with any questions. Michael Jeffers MD Nephrology [...] -Nephrology consulted, labs and renal US ordered -Norman removed, ambulated around the unit -bilateral pleural [...] 0600 and on the weekends please page [phone]. * Hortencia Cody MD - 05/15/2023 2:07 [...] not included. Hypertension-Nephrology Inpatient Follow-up Purnima Thacker [id number] 1955 ID: 67 y.o. old female seen [...] HGB 7.8 (L) 05/13/2023 SFOLATE >20.0 07/03/2022 [id number] 07/03/2022 Lab Results Component Value Date [...] Dr. Ayoub. Please contact me at phone: [phone] or pager: [phone] with any questions. Michael Jeffers MD Nephrology [...] last 720 hours. T/L/D Art ETT CVL [place] ASSESSMENT, MANAGEMENT, and DECISION MAKIN y.o. female [...] outlined inthis evaluation. HAVEN BA, PT Pager: [phone] Physical Therapy Inpatient Rehabilitation Department Time IN / OUT: 4721-3355 Total time: Total Minutes, Physical Therapy: 30 [...] 0600 and on the weekends please page [phone]. * Antelmo Sharma MD - 05/14/2023 7:56 AM EDT Images from the original note were not included. [facility] [place] [address] STRUCTURAL HEART DISEASE CONSULTATION NOTE PRIMARY CARE [...] stenosis. She is now status post TAVR Xdqfy-wq-Patqz with a 23 mm Lai 3 THV 05/12/[address] Sharma. Preliminary findings: Successful right transfemoral TAVR Yiuav-gx-Rsryk with a 23 mm Lai 3 THV. [...] Events: - 05/12 Transferred to [facility] post- TAVR for pressor/inotropic support (Levo, vaso, [...] ejection fraction Mild coronary artery disease by [facility] 11/09/2022 Heart failure with reduced ejection [...] 0.9% infusion 10-30 mL/hr Intravenous Daily PRN Lrori Chinchilla PA 10 mL/hr at 05/14/23 0600 [...] 2 tablet 2 tablet Oral Daily Lorri Chinhcilla PA 2tablet at 05/13/23 2104 [START ON [...] stenosis. She is now status post TAVR Rlfok-ku-Wpfag with a 23 mm Lai 3 THV 05/12/[address] Sharma. Janet TAVR case notable for coronary LAD protective MINNA. Status post TAVR, the patient was transferred to [facility] for pressor and inotropic support. Pressors weaned overnight 05/12. Cardiac indices by thermodilution remained >3 with continued Milrinone 0.125 mcg/kg/min prior to PAC removal. EKG todayNSR with stable IA/QRS intervals. Hemoglobin slowly down-trending (8.2-> 7.8-> 7.2). [...] Brody Kaplan APRN Structural Heart Team Pager [phone] Team Office Please see addendum by Dr. [...] exposure. Nephrology consultationtoday. Antelmo Sharma MD Pager [phone] * Antelmo Cardenas RN - 05/14/2023 5:18 AM EDT Pt AOx4, complaining of mild/moderate generalized pain (states her Meloxicam is effective at home) currently refusing prn oxycodone. NAEON, hemodynamically stable on Milrinone, Maps >65, ST in [id number]'s down to NSR with frequent multifocal PVC's. [...] note were not included. [facility] [place] [address] STRUCTURAL HEART DISEASE PROGRESS NOTE PRIMARY CARE [...] stenosis. She is now status post TAVR Jbinq-vp-Fjsbc with a 23 mm Lai 3 THV 05/12/[address] Sharma. Preliminary findings: Successful right transfemoral TAVR Fkwma-md-Rzmvl with a 23 mm Lai 3 THV. [...] ejection fraction Mild coronary artery disease by [facility] 11/09/2022 Heart failure with reduced ejection [...] stenosis. She is now status post TAVR Lhngn-ky-Dyibo with a 23 mm Lai 3 THV 05/12/[address] Sharma. Janet TAVR case notable for coronary LAD protective MINNA. Status post TAVR, the patient was transferred to [facility] for pressor and inotropic support. Pressors weaned overnight. Cardiac indices by thermodilution remain greater than 3 with continued Milrinone 0.125 mcg/kg/min. EKG today NSR with stable IA/QRS intervals. Hemoglobin 7.8 today from 8.5, likely [...] Brody Kaplan APRN Structural Heart Team Pager [phone] Team Office Please see addendum by Dr. [...] DAPT moving forward. Antelmo Sharma MD Pager [phone] * Bonita Miguel PA - 05/13/2023 8:30 AM EDT Cardiac Surgery Progress Note Purnima Thacker is a 67 y.o. 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 PMH of s/p tissue AVR (2017), mixed connective tissue disease HTN, HLD, NICOLAS, diverticulosis, rosacea, essential tremor, and depression. 24h Events: From laborer tree tapping for above procedure Extubated at ~1600 to [...] soft b/l, no evidence of hematoma. Tubes/Lines/Drains: Norman, RIJ, A-line, Art, PIV Assessment/Plan: 67 y.o. [...] 0600 and on the weekends please page 9767. * Onelia Schwartz MD - 05/12/2023 1:44 [...] ejection fraction Mild coronary artery disease by [facility] 11/09/2022 Heart failure with reduced ejection [...] FiO2 weaned to 40%. 1105: ABG 7.34/42/73/22 4781-5547: SBT performed and passed on these settings [...] PCP: Magdalena Acosta MD PCP phone number: [phone] Date of Admission: 05/08/2023 ( Hospital Day [...] 1447 PHART -- 7.34* 7.34* -- -- [id number] -- 30* 30* -- -- PO2ART -- 72* 81* -- -- ZCP3CAO -- 16.0* 15.7* -- -- LACTATEVEN 2.4* 2.7* 2.7* 4.8* 2.9* VBG (Venous Blood Gas) Recent Labs 05/12/23 0700 05/12/238 05/12/2310505/11/23193905/11/23 144 LACTATEVEN 2.4* 2.7* 2.7* 4.8* 2.9* Mixed Venous Sat Recent Labs 05/12/23 0508 05/12/23 0321 05/12/23 0114 05/12/23 0030 [id number] 30.7 32.7 37.3 25.1 Objective: Vitals Last [...] questions please contact the health customer care specialist that requested your imaging first. Electronically signed by: ALIX RUVALCABA MD, [facility] ([phone]), at 05/10/2023 1:[address] Cardiac for [...] questions please contact the health customer care specialist that requested your imaging first. Electronically signed by: Cullen Narayanan MD, [facility] ([phone]), at 05/11/2023 4:[address] Angiogram Abdomen [...] questions please contact the health customer care specialist that requested your imaging first. Electronically signed by: Eileen Gomes MD, [facility] ([phone]), at 05/11/2023 2:42 PM XR Chest One [...] questions please contact the health customer care specialist that requested your imaging first. Chest [...] questions please contact the health customer care specialist that requested your imaging first. Assessment [...] and inotrope. She is planned for a lmvfh-ks-rmrvs TAVR this morning, which should hopefully improve [...] MD, FACP, FACC Section of Cardiovascular Medicine [facility] Stopper Makermulti care technician [employer] [facility] * Noreen Deutsch RN - [...] ejection fraction Mild coronary artery disease by [facility] 11/09/2022 Heart failure with reduced ejection [...] 05/11/2023 4:11 PM EDT Reported off to STAIN REMOVER and pt transferred over in the bed for higher level of care. * Antelmo Sharma MD - 05/11/2023 9:45 AM EDT Images from the original note were not included. [facility] [place] [address] STRUCTURAL HEART DISEASE CONSULTATION NOTE PRIMARY CARE [...] who had been referred for possible TAVR jiniv-gu-njhju evaluation. Her primary symptoms are of dyspnea [...] [facility]. 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 She states that, [...] ejection fraction Mild coronary artery disease by [facility] 11/09/2022 Heart failure with reduced ejection [...] hour(s)) Lactate, whole blood, send to lab ([facility]) Result Value Ref Range Lactate WB 3.1 (H) 0.5 - 2.2 mmol/L Heparin (unfractionated) Level Result Value Ref Range Heparin UFH Level 0.46 IU/mL Lactate, whole blood, send to lab ([facility]) Result Value Ref Range [...] leads Confirmed by MD Harshil, Enrique Bell ([id number]) on 05/10/2023 8:11:46 AM Cardiac Cath 11/09/2022 [...] (bovine pericardial 25 mm), HFrEF, HTN, DLP, NICLOAS, mixed connective tissues disease, and other chronic [...] alert Dr. Hudson of her inpatient status, vichy primary cardiac surgeon. Based on recent clinic [...] HFrEF, she was transferred to [facility] this afternoon for further management. TAVR CT imaging support for adequate ileofemoral access. Given her acute deterioration today, will planfor RTF TAVR on 05/12/2023. Brody Kaplan APRN Structural Heart Disease Pager [phone] Please see addendum by Dr. Sharma for [...] signed and dated. Antelmo Sharma MD Pager [phone] * Harini Lance MD - 05/11/2023 6:06 AM EDT Images from the original note were not included. Cardiology Progress Note Patient info: Name: Purnima Thacker : 1955 PCP: Magdalena Acosta MD PCP phone number: [phone] Date of Admission: 05/08/2023 ( Hospital Day 3 days ) Attending:Juan Luis Gonzalez MD ID: Purnima Tahcker is a 67 y.o. female [...] questions please contact the health customer care specialist that requested your imaging first. 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, 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) Mild coronary artery disease by [facility] 11/09/2022 Hyperlipidemia, unspecified NICOLAS (obstructive sleep [...] PCP: Magdalena Acosta MD PCP phone number: [phone] Date of Admission: 05/08/2023 ( Hospital Day [...] 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) Mild coronary artery disease by [facility] 11/09/2022 Hyperlipidemia, unspecified NICOLAS (obstructive sleep [...] PCP: Magdalena Acosta MD PCP phone number: [phone] Date of Admission: 05/08/2023 ( Hospital Day [...] Gas) No results found for: PHART, PO2ART, PEE2OUB, NQG3OJX Microbiology: Microbiology Results (Last 30 days) No [...] PPx: Diet: Daily Healthy Menu Choices/Cardiac diet ([facility]-Diet) Lines: Peripheral IV Line [...] 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) Mild coronary artery disease by [facility] 11/09/2022 Hyperlipidemia, unspecified NICOLAS (obstructive sleep [...] fraction I35.0 Mild coronary artery disease by [facility] 11/09/2022 I25.10 Heart failure with reduced ejection fraction due to heart valve disease I50.20, I38 Cardiogenic shock R57.0 S/P TAVR (transcatheter aortic valve replacement) Z95.2 Past Medical History: Diagnosis Date Anemia Past Surgical History: Procedure Laterality Date PRG CATH PLSD LEFT HEART CATH & ARTS W/INJ & ANGIO IMG S&I N/A 11/09/2022 CORONARY ANGIOGRAPHY; W [facility],POSSIBLE PCI (WRVU 5.6) performed by Mario Alberto Escobedo MD at [facility] CATH LABS PRO AORTOPLAS FOR SUPRAVALV STEN N/A 09/21/2016 @AORTOPLASTY FOR SUPRAVALVULAR STENOSIS (WRVU 29.33) performed by Alirio Hudson MD at [facility] MAIN OR PRO REPLACEMENT PROSTHETIC AORTIC VALVE OPEN W CARDIOPULMONARY BYPASS HOMOGRF/STENT N/A 09/21/2016 @REPLACE AORTIC VALVE, OPEN, W\CPB, W\PROSTHETIC VALVE (WRVU 41.32) performed by Alirio Hudson MD at [facility] MAIN OR Social History and Habits: Social [...] fraction I35.0 Mild coronary artery disease by [facility] 11/09/2022 I25.10 Heart failure with reduced ejection fraction due to heart valve disease I50.20, I38 Cardiogenic shock R57.0 S/P TAVR (transcatheter aortic valve replacement) Z95.2 Past Medical History: Diagnosis Date Anemia Past Surgical History: Procedure Laterality Date PRG CATH PLSD LEFT HEART CATH & ARTS W/INJ & ANGIO IMG S&I N/A 11/09/2022 CORONARY ANGIOGRAPHY; W [facility],POSSIBLE PCI (WRVU 5.6) performed by Mario Alberto Escobedo MD at [facility] CATH LABS PRO AORTOPLAS FOR SUPRAVALV STEN N/A 09/21/2016 @AORTOPLASTY FOR SUPRAVALVULAR STENOSIS (WRVU 29.33) performed by Alirio Hudson MD at [facility] MAIN OR PRO REPLACEMENT PROSTHETIC AORTIC VALVE OPEN W CARDIOPULMONARY BYPASS HOMOGRF/STENT N/A 09/21/2016 @REPLACE AORTIC VALVE, OPEN, W\CPB, W\PROSTHETIC VALVE (WRVU 41.32) performed by Alirio Hudson MD at [facility] MAIN OR Social History and Habits: Social [...] prompted her to present to [facility]. She also endorses some intermittent retrosternal chest pain with exertion.She endorses some dizziness with exertion, but has not gotten faint or passed out. At [facility] she was noted to be afebrile, blood pressure 105/64, HR 120s, satting 95% on 2L NC. Labs from [facility] are below, of note she had elevated [...] prompted the transfer to us. [facility] labs: CBC - Hgb 10.5 CMP - Cr 1.1 BNP 73909 HsTrop 1358 Lactate 1.6 D-dimer 1183 Interval History Patient was admitted to [facility] due to concern on low BP iso [...] Klaudia Reid MD Internal Medicine PGY-1 Pager [phone], M1-S1 Service Associated attestation - Juan Luis Gonzalez MD - 05/08/2023 10:00 PM EDT Cardiology Attending Addendum Active Hospital Problems Diagnosis Symptomatic severe aortic stenosis with low ejection fraction Heart failure with reduced ejection fraction due to heart valve disease Mild coronary artery disease by [facility] 11/09/2022 Hyperlipidemia, unspecified History of aortic [...] PCP: Magdalena Acosta MD PCP phone number: [phone] Date of Admission: 05/08/2023 ( Hospital Day 0 days ) Attending:Enrique Chua MD ID: Purnima Thacker is a 67 y.o. female w/ PMH of s/p bioprosthetic AVR in 2016 with recent concern for severe restenosis, HTN, HLD, mixed connective tissue disease, who presents in transfer from [facility] with worsening BONILLA and weight gain concerning [...] which promptedher to present to [facility]. She also endorses some intermittent retrosternal chest pain with exertion. She endorses some dizziness with exertion, but has not gotten faint or passed out. At [facility] she was noted to be afebrile, blood pressure 105/64, HR 120s, satting 95% on 2L NC. Labs from [facility] are below, of note she had elevated [...] prompted the transfer to us. [facility] labs: CBC - Hgb 10.5 CMP - Cr 1.1 BNP 52003 HsTrop 1358 Lactate 1.6 D-dimer 1183 Vasoactive [...] who [facility] BONILLA and weight gain concerning for [...] #Routine Diet: Daily Healthy Menu Choices/Cardiac diet ([facility]-Diet) DVT Prophylaxis: heparin gtt [...] to the planned procedure. Hand Hygiene: The traveling accountant did perform hand hygiene prior to arterial [...] Successful arterial line placement. Crispin Timmons MD Borough Coordinator Associated attestation - Onelia Schwartz MD - [...] (flow was non-pulsatile) and appearance of blood. Norman-Marily catheter was placed and locked at 55 [...] information for follow-up [facility], [place] [address] [place] [address] Cardiac Rehab, [place] [id number] [address] [facility], [place] [address] [place] [address] Transportation: family or friend will provide *Brother [...] Type: *No Product type* / Secondary Insurance: [employer] [place] Prescription Coverage: Yes This plan was formulated with input from patient, family (please identify family/friend involved ifapplicable) and team. All are in agreement with plan. Aliza Martino MSN-Ed, RN ACM regulatory compliance officer Office of Care Management Pager #[phone] * Plan of Care - Favian Mckeon [...] Lana Chaudhary RN - 05/21/2023 4:46 PM [facility] [place] [facility] referral OFFICE OF CARE MANAGEMENT [...] Type: *No Product type* / Secondary Insurance: [facility] [place] Last Physical Therapy Recommendation: (Home [...] needs. describing our affiliations within the [facility] and educate about their right to choose where referrals are sent. provide a list of Home Health Agencies / Durable Medical Equipment vendors which serve their preferred geographic area. They have requested referrals to: [facility] [address] [place] [address] [facility] [place], [place] Note routed to a Steward/Stewardess who will communicate referrals to facilities and provide any required information. Transportation: family or friend will provide *Brother Raymond on Tuesday 05/22 at 1000 Barriers to discharge: Does not have home 22/02 assist available until tomorrow Tuesday 05/22 Plan going forward: Discharge home into the 22/02 home care of brother Raymond with [facility] and [facility] PT/OT services on Tuesday 05/22 [...] Attending: All Staff: Staff Role Juanita Almaguer Cardiac Catheterization Technologist Laure Ricks PA Physician Tobacco Wrapping Machine Tender Magdalena Rodriguez RN Radiology Nurse Consuelo Espinoza scudding inspector Nurse Post-operative diagnosis/Indication: Right pleural effusion [...] Type: *No Product type* / Secondary Insurance: [employer] [facility] [place] Last Physical Therapy Recommendation: [place] [facility] [place], swing bed rehabilitation facility with to be determined Last Occupational Therapy Recommendation: with Plan for discharge is: Penitentiary Facility / Swing Outpatient Agency/Support Group Needs: None Agency Referrals: Based on discussions with the multi-disciplinary healthcare team, the patient would benefit from SNF / Swing level of care at discharge. I have met with the patient to: discuss discharge planning needs. provide the [facility], Office of Care Management letter from the [place] Room Operator pertaining to rehab referrals. provide a letter describing our affiliations within the [facility] and educate about their right to choose where referrals are sent. provide the CMS Star Quality Rating handout. review the different levels of rehab including SNF, swing, and acute. provide a list of facilities within their preferred geographic area. request that they provide at least three choices for referral. They have requested referrals to: [facility] [address] [place] [address] [facility] ([facility]) [address] [place] [address] (Accepts pts only after exhausting all other local SNF options) [facility] (Swing) ([facility]) [address] [place] [address] PHONE: [phone] FAX: [phone] [facility] ([facility]) [facility]) [address] [place] [address] PHONE: [phone] FAX: [phone] Note routed to a Steward/Stewardess who will communicate referrals to facilities and [...] Crenshaw RN - 05/17/2023 10:25 AM EDT [facility] CARDIAC REHABILITATION Purnima Thacker [...] the original note were not included. [facility] NEPHROLOGY/HYPERTENSION CONSULT NOTE PATIENT: Purnima Thacker [...] in her course. She ultimately underwent a hkrrp-nh-pkgoo procedure on and tolerated it well (see [...] 1423 05/12/23 1105 PHART 7.39 7.37 7.34* YPQ0MZV 33* 36 42 PO2ART 101 102 73* ENN3CFE 19.5* 20.4 22.1 LACTATEVEN 1.5 1.8 2.8* CQC1WUT 40 40 40 PFRATIOART2 252 255 182 VBG (Venous Blood Gas) Recent Labs 05/12/23 1557 05/12/23 1423 05/12/23 1105 LACTATEVEN 1.5 1.8 2.8* Mixed Venous Sat Recent Labs 05/12/23 1425 05/12/23 0508 05/12/23 0321 F6HVRU2 59.9 30.7 32.7 LFT's: Recent Labs 05/14/23 0110 05/13/23 0115 05/12/23 0600 BILITOT 0.4 0.5 0.9 BILIDIR -- 0.3 -- ALBUMIN 3.6 3.0* 3.5 ALKPHOS 86 85 100 ALT 437* 903* 1,174* AST 319* 792* 1,435* No results found for: UPROTCREAT No results found for: TPROTEINPEP, ALBELECT No results found for: MICROALBUR, [id number] No results found for: HA1C Lab Results Component Value Date CALCIUM 8.5 05/14/2023 PHOS 4.7 (H) 05/08/2023 No results found for: 25OHVITD MICROBIOLOGY: ProcedureComponentValueUnitsDate/TimeUrine culture [[id number]]Collected: 05/11/231921Lab Status: Final resultSpecimen: Clean Catch UrineUpdated: [...] consulted for assessment if this patient needs BRAND COORDINATOR. Atthis time, we can likely hold off on BRAND COORDINATOR. Her volume status appears sufficient and her metabolic kanwal angements with mild acidosis is not too profound. Patient does not have significant uremic symptoms. We can hold off for today, but the patient is a high risk candidate for needing BRAND COORDINATOR in future daysespecially if her Cr curve trends the direction it is for the next several days. S/p Dwwaq-jg-Dwcnq TF TAVR: Management per cardiology. On milrinone gtt. PLAN: - Please obtain following diagnostics: renal US, urinalysis, urine prot/Cr ratio, urine albumin/Cr ratio, CK, uric acid, serum osmol, daily VBGs - No acute indications for BRAND COORDINATOR/dialysis. We will keep close eye on Cr trend, volume status, and metabolics to ensure patient still does not need BRAND COORDINATOR as she ensues intrinsic renal recovery - [...] M.H.Katherine., M.A. PGY-V Nephrology-Hypertension Fellow Page # [phone] [facility] [address] 2nd floor, Resident Buyer [address] [place] [address] * Care Management - Mario Alberto Olmos [...] TAVR at 730. Returned to [facility] at 0945. Was intubated in the laborer tree tapping due to agitation. Maintained bedrest for 5 [...] Operative Note Patient Name: Purnima Thacker : [id number] MR#: [id number] Case Date: 05/12/2023 Surgeon: Surgeon(s) and Role: [...] procedure Note: Patient Name: Purnima Thacker : [id number] MR#: [id number] Case Date: 05/12/2023 Operators Surgeon: Surgeon(s) and [...] main with 4.0 x 30 mm Resolute Eureka Drug Eluting Stent Perclose x1 + Angio-seal 8 Fr x1, RFA Manual pressure, LFA Manual pressure, LFV Endotracheal intubation (performed by cardiac anesthesia) Preliminary findings: Successful right transfemoral TAVR Kakjf-hp-Jjywu with a 23 mm Lai 3 THV. [...] MD, M.Sc. Structural Heart Disease Fellow Pager :[phone] Antelmo Sharma MD Pager [phone] * Op Note - Alirio Hudson MD - 05/12/2023 7:37 AM EDT Preop Diagnosis: Severe aortic stenosis, symptomatic. Postop Diagnosis: Same. Procedure: Transfemoral TAVR procedure with 23mm valve. Surgeon: Alirio Hudson M.D. Private Detective: Danny CULP Procedure: The patient was taken to the laborer tree tapping. The patient had monitored anesthesia care. 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 [facility] [place] [address] STRUCTURAL HEART DISEASE CONSULTATION NOTE PRIMARY CARE [...] who had been referred for possible TAVR yonpa-vm-xkvog evaluation. Her primary symptoms are of dyspnea [...] [facility]. 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 PROBLEM LIST: Patient Active Problem List Diagnosis Symptomatic severe aortic stenosis with low ejection fraction Mild coronary artery disease by [facility] 11/09/2022 Heart failure with reduced ejection [...] hour(s)) Lactate, whole blood, send to lab ([facility] Result Value Ref Range [...] leads Confirmed by MD Harshil, Enrique Bell ([id number]) on 05/10/2023 8:11:46 AM Assessment and Plan: [...] alert Dr. Hudson of her inpatient status, vichy primary cardiac surgeon. Based on recent clinic [...] Antelmo Sharma MD Structural Heart Disease Pager [phone] * Plan of Care - Sarahi Nice RN - 05/10/2023 3:55 AM EDTSumavis: RN Note and Care Plan Sarahi Nice RN assumed care of pt at time of their arrival to room 362 from [facility]. Pt voices shortness of breath at time [...] VTE (Venous Thromboembolism) Risk Flowsheets (Taken 05/09/2023 0946) VTE Prevention/Management: anticoagulant therapy Intervention: Prevent Infection [...] listening utilized Taken 05/08/20231999 by Alivia Kauffman desktop manager/Support System Care: self-care encouraged support provided [...] another hospital Location: admitted from [facility] Reason for Hospitalization: Critical aortic stenosis, causing [...] receiving care in [place] must abide by [place] law. The hierarchy [...] (i) The agent with financial power of sales and leasing agent or a conservator appointed in accordance with [...] none Home Address confirmed as: [address] [place] [address] Social & Family Supports: All names listed [...] Prescription Coverage: Yes Preferred Pharmacy: updated to [facility] Status: Patient is a : No Primary Care Provider confirmed: Magdalena Acosta MD [phone] Patient/Caregiver Goals of Treatment: Potential Needs for [...] transition of care planning. Alie Bradshaw RN, Pager-[phone] * Plan of Care - Emiyl Lucero RN - 05/08/2023 2:54 PM EDT OUTCOME EVALUATION NOTE: OUTCOME SUMMARY: Pt arrived from [facility]. A&O, no c/o pain or SOB. Heparin [...] [facility] Hematology Oncology [address] [place] [address] 05/12/2024 10:00 AM EDT Office Visit [place] [address] Markel Borjas MD [facility] [address] HEMATOLOGY [place] [address] 03/01/2025 4:15 PM EDT Office Visit Dermatology at [address] [place] [address] Marek Bonilla MD [address], [place] [address] Scheduled Referrals Name Type Priority Associated Diagnoses [...] Heart Cath W/Inj L Ventriculography, Img S&I ([id number]) 05/12/2023 7:37 AM EDT Aortic valve stenosis, [...] EST Narrative 07/08/2023 12:26 PM EST [address] [place] [address] ? Echocardiogram Report Name: PURNIMA THACKER ?Study Date: 07/08/2023 10:31 AMBP: 118/60 mmHg ? Patient Location: 4A : 1955 ? Height: 155 cm ? Account: [id number] Age: 67 yrs ? Weight: 74 kg Gender: Female ?BSA: 1.7 m2 Ordering Physician: ALIRIO HUDSON Referring Physician: VINOD JUÁREZ Performed By: Felicia Norris RODOLFO Reason For Study: S/P TAVR Exam Location: [facility]. Interpretation Summary Left ventricular systolic function [...] no significant change (post-procedure). Procedure Limited - 74906. Doppler - 35848. Color Doppler - 07327. Satisfactory quality. This study is limited because [...] Note Lee Kincaid MD - 07/08/2023 [address] [place] [address] Echocardiogram Report Name: PURNIMA THACKER Study Date: 12/07/028390:31 AMBP: 118/60 mmHg Patient Location: : 1955 Height: 155 cm Account: [id number] Age: 67 yrs Weight: 74 kg Gender: Female BSA: 1.7 m2 Ordering Physician: ALIRIO HUDSON Referring Physician: VINOD JUÁREZ Performed By: Felicia Norris RDCS Reason For Study: S/P TAVR Exam Location: [facility]. Interpretation Summary Left ventricular systolic function [...] is nosignificant change (post-procedure). Procedure Limited - 38258. Doppler - 06273. Color Doppler - 85543. Satisfactoryquality. This study is limited because of [...] Alirio Hudson MD CHEMISTRY ORDERABLE S [facility] [place] [address] * (ABNORMAL) Basic Metabolic Panel (non-fasting) (05/22/2023 3:57 AM EDT) Glucose 88 65 - 199 mg/dL [facility] Comment:Diabetes: >=200 mg/d L plus symptoms Blood Urea Nitrogen 21(H) 8 - 18 mg/dL [facility] Creatinine 0.69(L) 0.70 - 1.20 mg/dL [facility] Sodium 136 135 - 145 mmol/L [facility] Potassium 3.6 3.5 - 5.0 mmol/L [facility] Comment: Please note: ??Patients with WBC >100,000 may have falsely elevated Potassium levels. ??For accurate Potassium quantification in these patients send serum separator tube (gold top) for subsequent determinations. ??Contact the Clinical Chemistry Laboratory if there are any questions. Chloride 102 98 - 107 mmol/L [facility] Carbon Dioxide 23 22 - 31 mmol/L [facility] Anion Gap 11 5 - 15 mmol/L [facility] Calcium 8.6 8.5 - 10.5 mg/dL [facility] Est Glomerular Filtration Rate 95 >=60 mL/min/1. 73 m?? [facility] [...] Lab Mara Maggie ANURAG CHEMISTRY ORDERABL ES [facility] [place] [address] * (ABNORMAL) Basic Metabolic Panel (non-fasting) (05/21/2023 5:06 AM EDT) Glucose 87 65 - 199 mg/dL [facility] Comment:Diabetes: >=200 mg/d L plus symptoms Blood Urea Nitrogen 25(H) 8 - 18 mg/dL [facility] Creatinine 0.84 0.70 - 1.20 mg/dL [facility] Sodium 136 135 - 145 mmol/L [facility] Potassium 3.6 3.5 - 5.0 mmol/L [facility] Comment: Please note: ??Patients with WBC >100,000 may have falsely elevated Potassium levels. ??For accurate Potassium quantification in these patients send serum separator tube (gold top) for subsequent determinations. ??Contact the Clinical Chemistry Laboratory if there are any questions. Chloride 102 98 - 107 mmol/L [facility] Carbon Dioxide 26 22 - 31 mmol/L [facility] Anion Gap 8 5 - 15 mmol/L [facility] Calcium 8.9 8.5 - 10.5 mg/dL [facility] Est Glomerular Filtration Rate 76 >=60 mL/min/1. 73 m?? [facility] [...] Narrative Resulting Agency Comment Spec In Lab [facility] KENO WRITER/RUNNER CHEMISTRY ORDERABL ES Performing Organization Address City/[facility]/ZIP Co de Phone Number [facility] [place] [address] * Lavender Tube HOLD (05/20/2023 2:52 AM EDT) Lavender Hold Sample in lab. [facility] Blood Venous Draw / Unknown 05/20/2023 2:52 AM EDT 05/20/2023 3:04 AM EDT [facility] KENO WRITER/RUNNER HEMATOLOGY ORDERAB LES Performing Organization Address City/[facility]/ZIP Co de Phone Number [facility] [place] [address] * (ABNORMAL) Basic Metabolic Panel (non-fasting) (05/20/2023 2:52 AM EDT) Glucose 152 65 - 199 mg/dL [facility] Comment:Diabetes: >=200 mg/d L plus symptoms Blood Urea Nitrogen 33(H) 8 - 18 mg/dL [facility] Creatinine 0.82 0.70 - 1.20 mg/dL [facility] Sodium 137 135 - 145 mmol/L [facility] Potassium 3.7 3.5 - 5.0 mmol/L [facility] Comment: Please note: ??Patients with WBC >100,000 may have falsely elevated Potassium levels. ??For accurate Potassium quantification in these patients send serum separator tube (gold top) for subsequent determinations. ??Contact the Clinical Chemistry Laboratory if there are any questions. Chloride 99 98 - 107 mmol/L [facility] Carbon Dioxide 22 22 - 31 mmol/L [facility] Anion Gap 16(H) 5 - 15 mmol/L [facility] Calcium 9.0 8.5 - 10.5 mg/dL [facility] Est Glomerular Filtration Rate 78 >=60 mL/min/1. 73 m?? [facility] [...] Mara Serrano APRN CHEMISTRY ORDERABL ES [facility] [place] [address] * (ABNORMAL) Potassium (05/20/2023 2:52 AM EDT) Potassium 3.4(L) 3.5 - 5.0 mmol/L [facility] [...] Agency Comment Spec In Lab Mara Serrano KENO WRITER/RUNNER CHEMISTRY ORDERABL ES [facility] [place] [address] * XR Chest PA & Lateral (Generic) [...] questions please contact the health customer care specialist that requested your imaging first. [...] have questions please contactthe health customer care specialist that requested your imaging first. Electronically signed by: Chyna Johnson MD, [facility]([phone]), at 05/19/2023 2:19 PM Alirio Hudson MD IMG DX ORDERABLES * (ABNORMAL) Basic Metabolic Panel (non-fasting) (05/19/2023 5:49 AM EDT) Glucose 93 65 - 199 mg/dL [facility] Comment:Diabetes: >=200 mg/d L plus symptoms Blood Urea Nitrogen 45(H) 8 - 18 mg/dL [facility] Creatinine 1.02 0.70 - 1.20 mg/dL [facility] Sodium 138 135 - 145 mmol/L [facility] Potassium 3.9 3.5 - 5.0 mmol/L [facility] Comment: Please note: ??Patients with WBC >100,000 may have falsely elevated Potassium levels. ??For accurate Potassium quantification in these patients send serum separator tube (gold top) for subsequent determinations. ??Contact the Clinical Chemistry Laboratory if there are any questions. Chloride 102 98 - 107 mmol/L [facility] Carbon Dioxide 26 22 - 31 mmol/L [facility] Anion Gap 10 5 - 15 mmol/L [facility] Calcium 9.7 8.5 - 10.5 mg/dL [facility] Est Glomerular Filtration Rate 60 >=60 mL/min/1. 73 m?? [facility] [...] Resulting Agency Comment Spec In Lab [facility] Performing Organization Address City/State/[facility] Co de Phone Number [facility] [place] [address] * IR Chest Tube Placement Right (05/18/2023 [...] Laure Ricks PA-C Attending of record: Kristopher aSlgado MD 05/18/2023 Alirio Hudson MD IMG IR ORDERABLES * (ABNORMAL) Basic Metabolic Panel (non-fasting) (05/18/2023 2:54 AM EDT) Pathologist [facility] Glucose 95 65 - 199 mg/dL [facility] Comment:Diabetes: >=200 mg/d L plus symptoms Blood Urea Nitrogen 71(H) 8 - 18 mg/dL [facility] Comment:result rechecked-[facility] Creatinine 1.64(H) 0.70 - 1.20 mg/dL [facility] Comment:result rechecked-[facility] Sodium 137 135 - 145 mmol/L [facility] Potassium 3.7 3.5 - 5.0 mmol/L [facility] Comment: Please note: ??Patients with WBC >100,000 may have falsely elevated Potassium levels. ??For accurate Potassium quantification in these patients send serum separator tube (gold top) for subsequent determinations. ??Contact the Clinical Chemistry Laboratory if there are any questions. Chloride 100 98 - 107 mmol/L [facility] Carbon Dioxide 24 22 - 31 mmol/L [facility] Anion Gap 13 5 - 15 mmol/L [facility] Calcium 9.7 8.5 - 10.5 mg/dL [facility] Est Glomerular Filtration Rate 34(L) >=60 [...] Agency Comment Spec In Lab Marakatherine Serrano KENO WRITER/RUNNER CHEMISTRY ORDERABL ES [facility] [place] [address] * XR Chest PA & Lateral (Generic) [...] questions please contact the health customer care specialist that requested your imaging first. ? Electronically signed by: Ghassan Reyes MD, [facility] ??([phone]), at 05/17/2023 11:46 AM Narrative 05/17/2023 11:46 [...] have questions please contactthe health customer care specialist that requested your imaging first. Electronically signed by: Ghassan Reyes MD, [facility]([phone]), at 05/17/2023 11:46 AM Alirio Hudson MD IMG DX ORDERABLES * (ABNORMAL) Comprehensive metabolic panel (non-fasting) (05/17/2023 4:35 AM EDT) Glucose 89 65 - 199 mg/dL [facility] Comment:Diabetes: >=200 mg/d L plus symptoms Blood Urea Nitrogen 97(H) 8 - 18 mg/dL [facility] Creatinine 2.97(H) 0.70 - 1.20 mg/dL [facility] Comment:result rechecked-JSJ Sodium 135 135 - 145 mmol/L [facility] Potassium 4.1 3.5 - 5.0 mmol/L [facility] Comment: Please note: ??Patients with WBC >100,000 may have falsely elevated Potassium levels. ??For accurate Potassium quantification in these patients send serum separator tube (gold top) for subsequent determinations. ??Contact the Clinical Chemistry Laboratory if there are any questions. Chloride 97(L) 98 - 107 mmol/L [facility] Carbon Dioxide 22 22 - 31 mmol/L [facility] Anion Gap 16(H) 5 - 15 mmol/L [facility] Calcium 9.6 8.5 - 10.5 mg/dL [facility] Protein, Total 6.5 6.1 - 8.0 g/dL [facility] Albumin 3.7 3.2 - 5.2 g/dL [facility] Aspartate Aminotransferase 58(H) 0 - 30 unit/L [facility] Alanine Aminotransferase 66(H) 0 - 30 unit/L [facility] Alkaline Phosphatase 86 35 - 105 unit/L [facility] Bilirubin, Total 0.6 0.2 - 1.3 mg/dL [facility] Est Glomerular Filtration Rate 17(L) >=60 mL/min/1. 73 m?? [facility] [...] MD CHEMISTRY ORDERABLE S Performing Organization Address [facility] Co de Phone Number [facility] [place] [address] * Potassium (05/16/2023 11:15 PM EDT) Potassium 3.7 3.5 - 5.0 mmol/L [facility] [...] MD CHEMISTRY ORDERABLE S Performing Organization Address [facility] Co de Phone Number [facility] [place] [address] * Magnesium (05/16/2023 5:22 PM EDT) Magnesium 0.96 0.69 - 1.07 mmol/L [facility] Blood 05/16/2023 5:22 PM EDT 05/16/2023 5:27 PM EDT Narrative Resulting Agency Comment Spec In Lab Alirio Hudson MD CHEMISTRY ORDERABLE S Performing Organization Address [facility] Co de Phone Number [facility] [place] [address] * (ABNORMAL) Basic Metabolic Panel (non-fasting) (05/16/2023 5:22 PM EDT) Glucose 106 65 - 199 mg/dL [facility] Comment:Diabetes: >=200 mg/d L plus symptoms Blood Urea Nitrogen 103(H) 8 - 18 mg/dL [facility] Creatinine 3.91(H) 0.70 - 1.20 mg/dL [facility] Comment:result rechecked-imm Sodium 132(L) 135 - 145 mmol/L [facility] Potassium 3.6 3.5 - 5.0 mmol/L [facility] Comment: Please note: ??Patients with WBC >100,000 may have falsely elevated Potassium levels. ??For accurate Potassium quantification in these patients send serum separator tube (gold top) for subsequent determinations. ??Contact the Clinical Chemistry Laboratory if there are any questions. Chloride 92(L) 98 - 107 mmol/L [facility] Carbon Dioxide 22 22 - 31 mmol/L [facility] Anion Gap 18(H) 5 - 15 mmol/L [facility] Calcium 9.7 8.5 - 10.5 mg/dL [facility] Est Glomerular Filtration Rate 12(L) >=60 mL/min/1. 73 m?? [facility] [...] Alirio Hudson MD CHEMISTRY ORDERABLE S [facility] [place] [address] * (ABNORMAL) Potassium (05/16/2023 11:43 AM EDT) Potassium 3.3(L) 3.5 - 5.0 mmol/L [facility] [...] CHEMISTRY ORDERABLE S Performing Organization Address City/[facility]/ZIP Co de Phone Number [facility] [place] [address] * (ABNORMAL) Ferritin (05/16/2023 4:41 AM EDT) Ferritin 1,813(H) 30 - 400 ng/mL [facility] Comment: Pediatric reference ranges not verified at [facility], interpret with caution. Reference ranges for females greater than 50 years of age approach values for men, i.e., 30-400 ng/mL. Blood 05/16/2023 4:41 AM EDT 05/16/2023 4:54 AM EDT Narrative Resulting Agency Comment Spec In Lab Kristopher Ayoub MD CHEMISTRY ORDERABLES Performing Organization Address City/[facility]/ZIP Co de Phone Number [facility] [place] [address] * (ABNORMAL) PTH (05/16/2023 4:41 AM EDT) [facility] Parathyroid Hormone 120(H) 15 - 65 pg/mL [facility] Blood 05/16/2023 4:41 AM EDT 05/16/2023 4:54 AM EDT Narrative Resulting Agency Comment Spec In Lab Kristopher Ayoub MD CHEMISTRY ORDERABLES Performing Organization Address City/[facility]/ZIP Co de Phone Number [facility] [place] [address] * Vitamin D, 25-Hydroxy (05/16/2023 4:41 AM EDT) [facility] Vitamin D Total 25 OH 33 21 - 100 ng/mL [facility] Vit D Interp Sufficient [facility] Blood 05/16/2023 4:41 AM EDT 05/16/2023 4:54 AM EDT Narrative Resulting Agency Comment Spec In Lab Kristopher Ayoub MD CHEMISTRY ORDERABLES [facility] [place] [address] * (ABNORMAL) Blood Gas Venous ([facility]) (05/16/2023 4:22 AM EDT) pH, Venous 7.41 7.32 - 7.42 [facility] PCO2, Venous 32(L) 41 - [address] [facility] PO2, Venous 73(H) 25 - [address] [facility] Bicarbonate, Venous 19.6 mmol/L [facility] Base Excess, Venous -5.1 mmol/L [facility] Hgb Blood Gas 9.7(L) 11.7 - 15.5 g/dL [facility] Oxyhemoglobin, Venous 92.8 % [facility] Carboxyhemoglob in, Venous 0.1 % [facility] Comment: Nonsmokers: 0.5-1.5% COHB Smokers: Variable, but usually less than 10% Toxic: 20-30% COHB Lethal: Greater than 60% COHB Methemoglobin, Venous 0.3 <=1.5 % [facility] Na Whole Blood 130(L) 135 - 145 mmol/L [facility] K Whole Blood 3.7 3.5 - 5.0 mmol/L [facility] Comment: Please note: Patients with WBC >100,000 may have falsely elevated Potassium levels. Contact the Clinical Chemistry Laboratory if there are any questions. ICa Whole Blood 1.15 1.15 - 1.33 mmol/L [facility] Comment: Note: ??Total bilirubin higher than 20 mg/dL may lead to falsely low ionized calcium. CL Whole Blood 95(L) 98 - 107 mmol/L [facility] Gluc Whole Bld 82 65 - 199 mg/dL [facility] Comment:Diabetes: >=200 mg/d L plus symptoms Lactate WB 1.1 0.5 - 2.2 mmol/L [facility] Blood Gas Source Venous [facility] Blood Venous Draw / Unknown 05/16/2023 4:22 AM EDT 05/16/2023 4:31 AM EDT Narrative Resulting Agency Comment Spec In Lab Bonita TOBAR [place] [address] * (ABNORMAL) Differential, Automated (05/16/2023 4:20 AM EDT) Neutrophil % 84.1 % [facility] Neutrophil Absolute 6.22(H) 1.70 - 6.10 x10(3)/mc L [facility] Lymph % 5.8 % [facility] Lymphocytes Abs 0.4(L) 0.9 - 3.2 x10(3)/mc L [facility] Monocyte % 8.8 % [facility] Monocyte Abs 0.6 0.3 - 0.9 x10(3)/mc L [facility] Eos % 0.4 % [facility] Eosinophils Abs 0.0 0.0 - 0.4 x10(3)/mc L [facility] Basophil % 0.0 % [facility] Baso Absolute 0.0 0.0 - 0.1 x10(3)/mc L [facility] Immature Gran % 0.90 % [facility] Comment: Immature granulocytes(IG's)percentage and absolute count will include metamyelocytes, myelocytes, and promyelocytes. Blood smears from CBCs yielding IG's will be scanned manually for concordance. If this scan disagrees with the automated IG or if promyelocytes are noted, a manual differential will be performed. Immature Gran Absolute 0.07(H) 0.00 - 0.04 x10(3)/mc L [facility] Blood 05/16/2023 4:20 AM EDT 05/16/2023 4:29 AM EDT Narrative Resulting Agency Comment Spec In Lab James Agustin MD HEMATOLOGY ORDER JODIE Performing Organization Address City/[facility]/ZIP [place] [address] * (ABNORMAL) Hemogram (05/16/2023 4:20 AM EDT) White Blood Cell 7.4 4.0 - 9.5 x10(3)/mc L [facility] Red Blood Cell 2.40(L) 4.00 - 5.21 x10(6)/mc L [facility] Hemoglobin 7.8(L) 11.7 - 15.5 g/dL [facility] Hematocrit 22.5(L) 35.7 - 45.8 % [facility] Mean Cell Volume 93.8 82.6 - 94.[address] [facility] Mean Cell Hemoglobin 32.5(H) 27.1 - 32.[address] [facility] Mean Cell Hemoglobin Concentration 34.7 31.7 - 35.0 g/dL [facility] Platelet 120(L) 145 - 357 x10(3)/mc L [facility] RDW Standard Deviation 42.9 37.0 - 46.[address] [facility] RDW coefficient of variation 12.9 11.5 - 14.1 % [facility] Mean Platelet Volume 11.3 7.6 - 12.[address] [facility] NRBC% auto 0.7 % [facility] NRBC Absolute 0.050(H) 0.000 - 0.000 x10(3)/ L [facility] Blood 05/16/2023 4:20 AM EDT 05/16/2023 4:29 AM EDT Narrative Resulting Agency Comment Spec In Lab James Agustin MD HEMATOLOGY ORDER JODIE [facility] [place] [address] * (ABNORMAL) Basic Metabolic Panel (non-fasting) (05/16/2023 4:20 AM EDT) Glucose 89 65 - 199 mg/dL [facility] Comment:Diabetes: >=200 mg/d L plus symptoms Blood Urea Nitrogen 108(H) 8 - 18 mg/dL [facility] Creatinine 4.74(H) 0.70 - 1.20 mg/dL [facility] Comment:result rechecked-OLIVA Sodium 132(L) 135 - 145 mmol/L [facility] Potassium 3.9 3.5 - 5.0 mmol/L [facility] Comment: Please note: ??Patients with WBC >100,000 may have falsely elevated Potassium levels. ??For accurate Potassium quantification in these patients send serum separator tube (gold top) for subsequent determinations. ??Contact the Clinical Chemistry Laboratory if there are any questions. Chloride 95(L) 98 - 107 mmol/L [facility] Carbon Dioxide 18(L) 22 - 31 mmol/L [facility] Anion Gap 19(H) 5 - 15 mmol/L [facility] Calcium 9.2 8.5 - 10.5 mg/dL [facility] Est Glomerular Filtration Rate 10(L) >=60 mL/min/1. 73 m?? [facility] [...] Alirio Hudson MD CHEMISTRY ORDERABLE S [facility] [place] [address] * (ABNORMAL) Iron and TIBC (05/16/2023 4:20 AM EDT) Iron 31 30 - 150 mcg/dL [facility] TIBC 259 250 - 450 mcg/dL [facility] Iron Saturation 12(L) 20 - 50 % [facility] Blood 05/16/2023 4:20 AM EDT 05/16/2023 4:29 AM EDT Narrative Resulting Agency Comment Spec In Lab Kristopher Ayoub MD CHEMISTRY ORDERABLES [facility] [place] [address] * (ABNORMAL) Basic Metabolic Panel (non-fasting) (05/15/2023 12:50 AM EDT) Glucose 101 65 - 199 mg/dL [facility] Comment:Diabetes: >=200 mg/d L plus symptoms Blood Urea Nitrogen 109(H) 8 - 18 mg/dL [facility] Creatinine 5.62(H) 0.70 - 1.20 mg/dL [facility] Comment:result rechecked-KS Sodium 131(L) 135 - 145 mmol/L [facility] Comment:result rechecked-KS Potassium 3.7 3.5 - 5.0 mmol/L [facility] Comment: result rechecked-KS Please note: ??Patients with WBC >100,000 may have falsely elevated Potassium levels. ??For accurate Potassium quantification in these patients send serum separator tube (gold top) for subsequent determinations. ??Contact the Clinical Chemistry Laboratory if there are any questions. Chloride 92(L) 98 - 107 mmol/L [facility] Comment:result rechecked-KS Carbon Dioxide 18(L) 22 - 31 mmol/L [facility] Comment:result rechecked-KS Anion Gap 21(H) 5 - 15 mmol/L [facility] Calcium 8.9 8.5 - 10.5 mg/dL [facility] Est Glomerular Filtration Rate 8(L) >=60 mL/min/1. 73 m?? [facility] [...] CHEMISTRY ORDERABLE S Performing Organization Address City/[facility]/ZIP Co de Phone Number [facility] [place] [address] * (ABNORMAL) Hemogram (05/15/2023 12:50 AM EDT) White Blood Cell 9.1 4.0 - 9.5 x10(3)/mc L [facility] Red Blood Cell 2.19(L) 4.00 - 5.21 x10(6)/mc L [facility] Hemoglobin 7.2(L) 11.7 - 15.5 g/dL [facility] Hematocrit 20.6(L) 35.7 - 45.8 % [facility] Mean Cell Volume 94.1 82.6 - 94.[address] [facility] Mean Cell Hemoglobin 32.9(H) 27.1 - 32.[address] [facility] Mean Cell Hemoglobin Concentration 35.0 31.7 - 35.0 g/dL [facility] Platelet 109(L) 145 - 357 x10(3)/mc L [facility] RDW Standard Deviation 43.6 37.0 - 46.[address] [facility] RDW coefficient of variation 12.9 11.5 - 14.1 % [facility] Mean Platelet Volume 10.4 7.6 - 12.[address] [facility] NRBC% auto 2.1 % [facility] NRBC Absolute 0.190(H) 0.000 - 0.000 x10(3)/mc L [facility] Blood 05/15/2023 12:5 0 AM EDT 05/15/2023 12:52 AM EDT Narrative Resulting Agency Comment Spec In Lab Alirio Hudson MD HEMATOLOGY ORDERABL ES Performing Organization Address [facility] Co de Phone Number [facility] [place] [address] * (ABNORMAL) BLOOD GAS 2 VENOUS (05/15/2023 12:49 AM EDT) pH, Venous 7.33 7.32 - 7.42 [facility] PCO2, Venous 37(L) 41 - [address] [facility] PO2, Venous 34 25 - [address] [facility] Bicarbonate, Venous 19.1 mmol/L [facility] Base Excess, Venous -6.8 mmol/L [facility] Hgb Blood Gas 10.8(L) 11.7 - 15.5 g/dL [facility] Oxyhemoglobin, Venous 58.1 % [facility] Carboxyhemoglob in, Venous 0.3 % [facility] Comment: Nonsmokers: 0.5-1.5% COHB Smokers: Variable, but usually less than 10% Toxic: 20-30% COHB Lethal: Greater than 60% COHB Methemoglobin, Venous 0.6 <=1.5 % [facility] Na Whole Blood 136 135 - 145 mmol/L [facility] K Whole Blood 3.7 3.5 - 5.0 mmol/L [facility] Comment: Please note: Patients with WBC >100,000 may have falsely elevated Potassium levels. Contact the Clinical Chemistry Laboratory if there are any questions. ICa Whole Blood 1.12(L) 1.15 - 1.33 mmol/L [facility] Comment: Note: ??Total bilirubin higher than 20 mg/dL may lead to falsely low ionized calcium. CL Whole Blood 95(L) 98 - 107 mmol/L [facility] Gluc Whole Bld 101 65 - 199 mg/dL [facility] Comment:Diabetes: >=200 mg/d L plus symptoms Lactate WB 1.3 0.5 - 2.2 mmol/L [facility] Flow, Mike 1.[address] [facility] Blood Gas Source Venous [facility] Blood 05/15/2023 12:4 9 AM EDT 05/15/2023 12:49 AM EDT Alirio Hudson MD POINT OF CARE TEST ORDERABLES [facility] [place] [address] * US Retroperitoneal Complete (05/14/2023 3:53 PM [...] PM Electronically signed by: Hayden Robledo MD, [facility] ([phone]), at 05/14/2023 4:32 PM Thank you for letting us participate in the care of this patient. If you are a health care provider and have any questions regarding this report, please contact the number above. For patients who have questions, please contact the health customer care specialist that requested your imaging first. ? Hayden Robledo, Staff Physician Electronically Signed Final Report ?? 05/14/2023 04:39 pm Narrative 05/14/2023 4:39 PM EDT Renal ? (Signed Final 05/14/2023 04:39 pm) PATIENT INFO: ID #: ? [id number] ?: ??55 (67 yrs)(F) Name: ? PURNIMA THACKER ?Visit Date: 05/14/2023 03:44 pm PERFORMED BY: Attending: ?Meena CULP, Hayden Stafford Resident: ? Nell CULP, Anand August Performed By: ? Consuelo Tello RDMS Referred By: ?ALIRIO HUDSON Location: ? [place] SERVICE(S) PROVIDED: URETRO - Retroperitoneal Complete - [id number] ? [id number] INDICATIONS: EVANS COMPARISON: CT: Abdomen/Pelvis 05/11/23 RIGHT [...] 05/14/2023 04:39 pm) PATIENT INFO: ID #: [id number] : 55 (67 yrs)(F) Name: PURNIMA THACKER Visit Date: 05/14/2023 03:44 pm PERFORMED BY: Attending: Hayden Robledo MD Resident: Anand Camejo MD Performed By: Consuelo Tello RDMS Referred By: ALIRIO HUDSON Location: [place] SERVICE(S) PROVIDED: URETRO - Retroperitoneal Complete - [id number] INDICATIONS: EVANS COMPARISON: CT: Abdomen/Pelvis 05/11/23 RIGHT [...] PM Electronically signed by: Hayden Robledo MD, [facility] ([phone]), at 05/14/2023 4:32 PM Thank you for letting us participate in the care of this patient. If you are a health care provider and have any questions regarding this report, please contact the number above. For patients who have questions, please contact the health customer care specialist that requested your imaging first. Hayden Robledo, Staff Physician Electronically Signed Final Report 05/14/2023 04:39 pm Alirio Hudson MD IMG US GEN ORDERABL ES * CK (05/14/2023 3:17 PM EDT) Creatine Kinase 123 0 - 160 unit/L [facility] Blood 05/14/2023 3:17 PM EDT 05/14/2023 3:31 PM EDT Narrative Resulting Agency Comment Spec In Lab Alirio Hudson MD CHEMISTRY ORDERABLE S Performing Organization Address [facility] Co de Phone Number [facility] [place] [address] * (ABNORMAL) Uric acid (05/14/2023 3:17 PM EDT) Uric Acid 14.9(H) 2.5 - 6.5 mg/dL [facility] Blood 05/14/2023 3:17 PM EDT 05/14/2023 3:31 PM EDT Narrative Resulting Agency Comment Spec In Lab Alirio Hudson MD CHEMISTRY ORDERABLE S Performing Organization Address [facility] [place] [address] * (ABNORMAL) Osmolality (05/14/2023 3:17 PM EDT) Osmolality 311(H) 275 - 295 mOsm/kg [facility] Blood 05/14/2023 3:17 PM EDT 05/14/2023 3:31 PM EDT Narrative Resulting Agency Comment Spec In Lab Alirio Hudson MD [place] [address] * (ABNORMAL) Differential, Automated (05/14/2023 1:10 AM EDT) Pathologist [facility] Neutrophil % 87.2 % [facility] Neutrophil Absolute 9.74(H) 1.70 - 6.10 x10(3)/mc L [facility] Lymph % 3.9 % [facility] Lymphocytes Abs 0.4(L) 0.9 - 3.2 x10(3)/mc L [facility] Monocyte % 7.9 % [facility] Monocyte Abs 0.9 0.3 - 0.9 x10(3)/mc L [facility] Eos % 0.0 % [facility] Eosinophils Abs 0.0 0.0 - 0.4 x10(3)/mc L [facility] Basophil % 0.1 % [facility] Baso Absolute 0.0 0.0 - 0.1 x10(3)/mc L [facility] Immature Gran % 0.90 % [facility] Comment: Immature granulocytes(IG's)percentage and absolute count will include metamyelocytes, myelocytes, and promyelocytes. Blood smears from CBCs yielding IG's will be scanned manually for concordance. If this scan disagrees with the automated IG or if promyelocytes are noted, a manual differential will be performed. Immature Gran Absolute 0.10(H) 0.00 - 0.04 x10(3)/mc L [facility] Blood 05/14/2023 1:10 AM EDT 05/14/2023 1:24 AM EDT Narrative Resulting Agency Comment Spec In Lab Bonita TOBAR HEMATOLOGY ORDERABLE S [facility] [place] [address] * (ABNORMAL) Hemogram (05/14/2023 1:10 AM EDT) White Blood Cell 11.2(H) 4.0 - 9.5 x10(3)/mc L [facility] Red Blood Cell 2.19(L) 4.00 - 5.21 x10(6)/mc L [facility] Hemoglobin 7.2(L) 11.7 - 15.5 g/dL [facility] Hematocrit 20.3(L) 35.7 - 45.8 % [facility] Mean Cell Volume 92.7 82.6 - 94.[address] [facility] Mean Cell Hemoglobin 32.9(H) 27.1 - 32.[address] [facility] Mean Cell Hemoglobin Concentration 35.5(H) 31.7 - 35.0 g/dL [facility] Platelet 112(L) 145 - 357 x10(3)/mc L [facility] RDW Standard Deviation 41.4 37.0 - 46.[address] [facility] RDW coefficient of variation 12.5 11.5 - 14.1 % [facility] Mean Platelet Volume 10.4 7.6 - 12.[address] [facility] NRBC% auto 1.5 % [facility] NRBC Absolute 0.170(H) 0.000 - 0.000 x10(3)/mc L [facility] Blood 05/14/2023 1:10 AM EDT 05/14/2023 1:24 AM EDT Narrative Resulting Agency Comment Spec In Lab Bonita TOBAR HEMATOLOGY ORDERABLE S [facility] [place] [address] * (ABNORMAL) Comprehensive metabolic panel (non-fasting) (05/14/2023 1:10 AM EDT) Glucose 120 65 - 199 mg/dL [facility] Comment:Diabetes: >=200 mg/d L plus symptoms Blood Urea Nitrogen 98(H) 8 - 18 mg/dL [facility] Creatinine 4.80(H) 0.70 - 1.20 mg/dL [facility] Comment:result rechecked-ssc Sodium 132(L) 135 - 145 mmol/L [facility] Potassium 4.1 3.5 - 5.0 mmol/L [facility] Comment: Please note: ??Patients with WBC >100,000 may have falsely elevated Potassium levels. ??For accurate Potassium quantification in these patients send serum separator tube (gold top) for subsequent determinations. ??Contact the Clinical Chemistry Laboratory if there are any questions. Chloride 94(L) 98 - 107 mmol/L [facility] Carbon Dioxide 18(L) 22 - 31 mmol/L [facility] Anion Gap 20(H) 5 - 15 mmol/L [facility] Calcium 8.5 8.5 - 10.5 mg/dL [facility] Protein, Total 5.8(L) 6.1 - 8.0 g/dL [facility] Albumin 3.6 3.2 - 5.2 g/dL [facility] Aspartate Aminotransferase 319(H) 0 - 30 unit/L [facility] Alanine Aminotransferase 437(H) 0 - 30 unit/L [facility] Alkaline Phosphatase 86 35 - 105 unit/L [facility] Bilirubin, Total 0.4 0.2 - 1.3 mg/dL [facility] Est Glomerular Filtration Rate 9(L) >=60 mL/min/1. 73 m?? [facility] [...] MD CHEMISTRY ORDERABLE S Performing Organization Address [facility] Co de Phone Number [facility] [place] [address] * APTT (05/13/2023 10:15 AM EDT) Partial Thromboplastin Time 27 25 - [address] [facility] Comment: The PTT is NOT appropriate for heparin monitoring. Use the Anti-Xa level for heparin monitoring (HEP UFH) or LMWH monitoring (HEP LMW). A PTT less than 37 seconds generally indicates adequate hemostasis. Blood 05/13/2023 10:1 5 AM EDT 05/13/2023 10:46 AM EDT Narrative Resulting Agency Comment Spec In Lab Alirio Hudson MD HEMATOLOGY ORDERABL ES Performing Organization Address [facility] Co de Phone Number [facility] [place] [address] * (ABNORMAL) Prothrombin Time (05/13/2023 10:15 AM EDT) Prothrombin Time 14.6(H) 9.4 - 12.[address] [facility] International Normalization Ratio 1.3 [facility] Comment: An INR <2.0 indicates adequate [...] MD HEMATOLOGY ORDERABL ES Performing Organization Address [facility] Co de Phone Number [facility] [place] [address] * EKG 12 Lead (05/13/2023 9:22 AM EDT) Pathologist [facility] Ventricular rate 92 BPM MUSE SYSTEM Atrial Rate 92 BPM MUSE SYSTEM P-R Interval 140 ms MUSE SYSTEM QRS Duration 104 ms MUSE SYSTEM Q-T Interval 384 ms MUSE SYSTEM QTC Calculated (Bezet) 474 ms MUSE SYSTEM Calculated P [place] 33 degrees MUSE SYSTEM Calculated R [place] 41 degrees MUSE SYSTEM Calculated T [place] -35 degrees MUSE SYSTEM INTERPRETATION Sinus rhythm with frequent Premature ventricular complexes Septal infarct , age undetermined ST & T wave abnormality, consider lateral ischemia Abnormal ECG When compared with ECG of 12-MAY-2023 10:10, Premature ventricular complexes are now Present I personally reviewed the tracing and edited the fellows interpretation Confirmed by fellow MD Anitha, Carissa ([id number]) on 05/13/2023 3:25:30 PM Confirmed by Maxx Best ([id number]) on 05/13/2023 8:30:56 PM MUSE SYSTEM 05/13/2023 9:22 AM EDT 05/13/2023 8:30 PM EDT Alirio Hudson MD ECG ORDERABLES MUSE SYSTEM * (ABNORMAL) Differential, Automated (05/13/2023 1:15 AM EDT) [facility] Neutrophil % 88.1 % [facility] Neutrophil Absolute 7.62(H) 1.70 - 6.10 x10(3)/mc L [facility] Lymph % 3.1 % [facility] Lymphocytes Abs 0.3(L) 0.9 - 3.2 x10(3)/mc L [facility] Monocyte % 7.9 % [facility] Monocyte Abs 0.7 0.3 - 0.9 x10(3)/mc L [facility] Eos % 0.0 % [facility] Eosinophils Abs 0.0 0.0 - 0.4 x10(3)/mc L [facility] Basophil % 0.1 % [facility] Baso Absolute 0.0 0.0 - 0.1 x10(3)/mc L [facility] Immature Gran % 0.80 % [facility] Comment: Immature granulocytes(IG's)percentage and absolute count will include metamyelocytes, myelocytes, and promyelocytes. Blood smears from CBCs yielding IG's will be scanned manually for concordance. If this scan disagrees with the automated IG or if promyelocytes are noted, a manual differential will be performed. Immature Gran Absolute 0.07(H) 0.00 - 0.04 x10(3)/mc L [facility] Blood 05/13/2023 1:15 AM EDT 05/13/2023 1:29 AM EDT Narrative Resulting Agency Comment Spec In Lab Lorri TOBAR HEMATOLOGY ORDERABLE S [facility] [place] [address] * (ABNORMAL) Hemogram (05/13/2023 1:15 AM EDT) White Blood Cell 8.6 4.0 - 9.5 x10(3)/[facility] Red Blood Cell 2.37(L) 4.00 - 5.21 x10(6)/[facility] Hemoglobin 7.8(L) 11.7 - 15.5 g/dL [facility] Hematocrit 22.2(L) 35.7 - 45.8 % [facility] Mean Cell Volume 93.7 82.6 - 94.[address] [facility] Mean Cell Hemoglobin 32.9(H) 27.1 - 32.[address] [facility] Mean Cell Hemoglobin Concentration 35.1(H) 31.7 - 35.0 g/dL [facility] Platelet 130(L) 145 - 357 x10(3)/[facility] RDW Standard Deviation 41.7 37.0 - 46.[address] [facility] RDW coefficient of variation 12.5 11.5 - 14.1 % [facility] Mean Platelet Volume 10.2 7.6 - 12.[address] [facility] NRBC% auto 0.5 % [facility] NRBC Absolute 0.040(H) 0.000 - 0.000 x10(3)/ L [facility] Blood 05/13/2023 1:15 AM EDT 05/13/2023 1:29 AM EDT Narrative Resulting Agency Comment Spec In Lab Lorri TOBAR HEMATOLOGY ORDERABLE S Performing Organization Address City/[facility]/ZIP Co de Phone Number [facility] [place] [address] * (ABNORMAL) Hepatic Function Panel (05/13/2023 1:15 AM EDT) Protein, Total 5.5(L) 6.1 - 8.0 g/dL [facility] Albumin 3.0(L) 3.2 - 5.2 g/dL [facility] Aspartate Aminotransferase 792(H) 0 - 30 unit/L [facility] Alanine Aminotransferase 903(H) 0 - 30 unit/L [facility] Alkaline Phosphatase 85 35 - 105 unit/L [facility] Bilirubin, Total 0.5 0.2 - 1.3 mg/dL [facility] Bilirubin, Direct 0.3 0.0 - 0.3 mg/dL [facility] Blood 05/13/2023 1:15 AM EDT 05/13/2023 1:29 AM EDT Narrative Resulting Agency Comment Spec In Lab Alirio Hudson MD CHEMISTRY ORDERABLE S Performing Organization Address [facility] Co de Phone Number [facility] [place] [address] * (ABNORMAL) Basic Metabolic Panel (non-fasting) (05/13/2023 1:15 AM EDT) Glucose 107 65 - 199 mg/dL [facility] Comment:Diabetes: >=200 mg/d L plus symptoms Blood Urea Nitrogen 82(H) 8 - 18 mg/dL [facility] Creatinine 3.15(H) 0.70 - 1.20 mg/dL [facility] Comment:result rechecked-OG Sodium 132(L) 135 - 145 mmol/L [facility] [...] Chloride 95(L) 98 - 107 mmol/L [facility] Carbon Dioxide 20(L) 22 - 31 mmol/L [facility] Anion Gap 17(H) 5 - 15 mmol/L [facility] Calcium 8.3(L) 8.5 - 10.5 mg/dL [facility] Est Glomerular Filtration Rate 16(L) >=60 mL/min/1. 73 m?? [facility] [...] Alirio Hudson MD CHEMISTRY ORDERABLE S [facility] [place] [address] * (ABNORMAL) BLOOD GAS 2 ARTERIAL (05/12/2023 3:57 PM EDT) pH, Arterial 7.39 7.35 - 7.45 [facility] PCO2, Arterial 33(L) 35 - [address] [facility] PO2, Arterial 101 85 - [address] [facility] Bicarbonate, Arterial 19.5(L) 20.0 - 26.0 mmol/L [facility] Base Excess, Arterial -5.5(L) -3.0 - 3.0 mmol/L [facility] Hgb Blood Gas 9.8(L) 11.7 - 15.5 g/dL [facility] Oxyhemoglobin, Arterial 95.2 94.0 - 97.0 % [facility] Carboxyhemoglob in, Arterial 0.2 % [facility] Comment: Nonsmokers: 0.5-1.5% COHB Smokers: Variable, but usually less than 10% Toxic: 20-30% COHB Lethal: Greater than 60% COHB Methemoglobin, Arterial 0.8 <=1.5 % [facility] Na Whole Blood 129(L) 135 - 145 mmol/L [facility] K Whole Blood 3.8 3.5 - 5.0 mmol/L [facility] Comment: Please note: Patients with WBC >100,000 may have falsely elevated Potassium levels. Contact the Clinical Chemistry Laboratory if there are any questions. ICa Whole Blood 1.05(L) 1.15 - 1.33 mmol/L [facility] Comment: Note: ??Total bilirubin higher than 20 mg/dL may lead to falsely low ionized calcium. CL Whole Blood 96(L) 98 - 107 mmol/L [facility] Gluc Whole Bld 178 65 - 199 mg/dL [facility] Comment:Diabetes: >=200 mg/d L plus symptoms. Lactate WB 1.5 0.5 - 2.2 mmol/L [facility] FIO2 Art 40 % [facility] PF Ratio Art 252 [facility] Blood 05/12/2023 3:57 PM EDT 05/12/2023 3:57 PM EDT Alirio Hudson MD POINT OF CARE TEST ORDERABLES Performing Organization Address City/State/[facility] Co de Phone Number [facility] [place] [address] * (ABNORMAL) Coox2 (05/12/2023 2:25 PM EDT) pO2, Coox 37 mmHg [facility] Hgb Blood Gas 9.5(L) 11.7 - 15.5 g/dL [facility] Oxyhemoglobin, Coox 59.9 % [facility] Carboxyhemoglo bin, Coox 0.3 % [facility] Comment: Nonsmokers: 0.5-1.5% COHB Smokers: Variable, but usually less than 10% Toxic: 20-30% COHB Lethal: Greater than 60% COHB Methemoglobin, Coox 0.7 <=1.5 % [facility] Source Coox Mixed Venous [facility] Blood 05/12/2023 2:25 PM EDT 05/12/2023 2:25 PM EDT Alirio Hudson MD POINT OF CARE TEST ORDERABLES [facility] [address] [place] [address] * (ABNORMAL) BLOOD GAS 2 ARTERIAL (05/12/2023 2:23 PM EDT) pH, Arterial 7.37 7.35 - 7.45 [facility] PCO2, Arterial 36 35 - [address] [facility] PO2, Arterial 102 85 - [address] [facility] Bicarbonate, Arterial 20.4 20.0 - 26.0 mmol/L [facility] Base Excess, Arterial -4.8(L) -3.0 - 3.0 mmol/L [facility] Hgb Blood Gas 12.7 11.7 - 15.5 g/dL [facility] Oxyhemoglobin, Arterial 95.4 94.0 - 97.0 % [facility] Carboxyhemoglob in, Arterial 0.3 % [facility] Comment: Nonsmokers: 0.5-1.5% COHB Smokers: Variable, but usually less than 10% Toxic: 20-30% COHB Lethal: Greater than 60% COHB Methemoglobin, Arterial 0.7 <=1.5 % [facility] Na Whole Blood 129(L) 135 - 145 mmol/L [facility] K Whole Blood 3.7 3.5 - 5.0 mmol/L [facility] Comment: Please note: Patients with WBC >100,000 may have falsely elevated Potassium levels. Contact the Clinical Chemistry Laboratory if there are any questions. ICa Whole Blood 1.05(L) 1.15 - 1.33 mmol/L [facility] Comment: Note: ??Total bilirubin higher than 20 mg/dL may lead to falsely low ionized calcium. CL Whole Blood 95(L) 98 - 107 mmol/L [facility] Gluc Whole Bld 168 65 - 199 mg/dL [facility] Comment:Diabetes: >=200 mg/d L plus symptoms. Lactate WB 1.8 0.5 - 2.2 mmol/L [facility] FIO2 Art 40 % [facility] PF Ratio Art 255 [facility] Blood 05/12/2023 2:23 PM EDT 05/12/2023 2:23 PM EDT Alirio Hudson MD POINT OF CARE TEST ORDERABLES [facility] [place] [address] * (ABNORMAL) Troponin (05/12/2023 2:05 PM EDT) Troponin-T, High Sensitivity 1,022(H) <=14 ng/L [facility] Comment: This patient's troponin T concentration [...] [facility] Test Catalog Reference: Fourth Candler Definition of Myocardial Infarction. Journal of the [place] [employer] 2018;72:1683-5050 Blood 05/12/2023 2:05 PM EDT 05/12/2023 2:14 PM EDT Narrative Resulting Agency Comment Spec In Lab Alirio Hudson MD CHEMISTRY ORDERABLE S Performing Organization Address City/[facility]/ZIP Co de Phone Number [facility] [place] [address] * (ABNORMAL) Hemoglobin (05/12/2023 2:05 PM EDT) Hemoglobin 8.5(L) 11.7 - 15.5 g/dL [facility] Blood 05/12/2023 2:05 PM EDT 05/12/2023 2:14 PM EDT Narrative Resulting Agency Comment Spec In Lab Alirio Hudson MD HEMATOLOGY ORDERABL ES Performing Organization Address [facility] Co de Phone Number [facility] [place] [address] * Potassium (05/12/2023 2:05 PM EDT) Potassium 3.9 3.5 - 5.0 mmol/L [facility] MD CHEMISTRY ORDERABLE S Performing Organization Address [facility] Co de Phone Number [facility] [place] [address] * (ABNORMAL) BLOOD GAS 2 ARTERIAL (05/12/2023 11:05 AM EDT) pH, Arterial 7.34(L) 7.35 - 7.45 [facility] PCO2, Arterial 42 35 - [address] [facility] PO2, Arterial 73(L) 85 - [address] [facility] Bicarbonate, Arterial 22.1 20.0 - 26.0 mmol/L [facility] Base Excess, Arterial -3.6(L) -3.0 - 3.0 mmol/L [facility] Hgb Blood Gas 9.3(L) 11.7 - 15.5 g/dL [facility] Oxyhemoglobin, Arterial 89.3(L) 94.0 - 97.0 % [facility] Carboxyhemoglob in, Arterial 0.2 % [facility] Comment: Nonsmokers: 0.5-1.5% COHB Smokers: Variable, but usually less than 10% Toxic: 20-30% COHB Lethal: Greater than 60% COHB Methemoglobin, Arterial 0.9 <=1.5 % [facility] Na Whole Blood 131(L) 135 - 145 mmol/L [facility] K Whole Blood 3.8 3.5 - 5.0 mmol/L [facility] Comment: Please note: Patients with WBC >100,000 may have falsely elevated Potassium levels. Contact the Clinical Chemistry Laboratory if there are any questions. ICa Whole Blood 1.04(L) 1.15 - 1.33 mmol/L [facility] Comment: Note: ??Total bilirubin higher than 20 mg/dL may lead to falsely low ionized calcium. CL Whole Blood 96(L) 98 - 107 mmol/L [facility] Gluc Whole Bld 152 65 - 199 mg/dL [facility] Comment:Diabetes: >=200 mg/d L plus symptoms. Lactate WB 2.8(H) 0.5 - 2.2 mmol/L [facility] FIO2 Art 40 % [facility] PF Ratio Art 182 [facility] Blood 05/12/2023 11:0 5 AM EDT 05/12/2023 11:05 AM EDT Alirio Hudson MD POINT OF CARE TEST ORDERABLES [facility] [address] * (ABNORMAL) BLOOD GAS 2 ARTERIAL (05/12/2023 10:14 AM EDT) pH, Arterial 7.18(Criti gabrielle) 7.35 - 7.45 [facility] Comment:Noted by surgical instrument maker. PCO2, Arterial 45 35 - [address] [facility] PO2, Arterial 186(H) 85 - [address] [facility] Bicarbonate, Arterial 16.2(L) 20.0 - 26.0 mmol/L [facility] Base Excess, Arterial -12.2(L) -3.0 - 3.0 mmol/L [facility] Hgb Blood Gas 10.0(L) 11.7 - 15.5 g/dL [facility] Oxyhemoglobin, Arterial 97.0 94.0 - 97.0 % [facility] Carboxyhemoglob in, Arterial 0.2 % [facility] Comment: Nonsmokers: 0.5-1.5% COHB Smokers: Variable, but usually less than 10% Toxic: 20-30% COHB Lethal: Greater than 60% COHB Methemoglobin, Arterial 0.9 <=1.5 % [facility] Na Whole Blood 129(L) 135 - 145 mmol/L [facility] K Whole Blood 3.6 3.5 - 5.0 mmol/L [facility] Comment: Please note: Patients with WBC >100,000 may have falsely elevated Potassium levels. Contact the Clinical Chemistry Laboratory if there are any questions. ICa Whole Blood 1.10(L) 1.15 - 1.33 mmol/L [facility] Comment: Note: ??Total bilirubin higher than 20 mg/dL may lead to falsely low ionized calcium. CL Whole Blood 97(L) 98 - 107 mmol/L [facility] Gluc Whole Bld 161 65 - 199 mg/dL [facility] Comment:Diabetes: >=200 mg/d L plus symptoms. Lactate WB 3.3(H) 0.5 - 2.2 mmol/L [facility] FIO2 Art 100 % [facility] PF Ratio Art 186 [facility] Blood 05/12/2023 10:1 4 AM EDT 05/12/2023 10:14 AM EDT Alirio Hudson MD POINT OF CARE TEST ORDERABLES [facility] [place] [address] * EKG 12 Lead (05/12/2023 10:10 AM EDT) Ventricular rate 116 BPM MUSE SYSTEM Atrial Rate 116 BPM MUSE SYSTEM P-R Interval 158 ms MUSE SYSTEM QRS Duration 114 ms MUSE SYSTEM Q-T Interval 348 ms MUSE SYSTEM QTC Calculated (Bezet) 483 ms MUSE SYSTEM Calculated P [place] 37 degrees MUSE SYSTEM Calculated R [place] 31 degrees MUSE SYSTEM Calculated T [place] -138 degrees MUSE SYSTEM INTERPRETATION Sinus tachycardia with intermittent aberrant ventricular conduction Possible Left atrial enlargement Incomplete left bundle block Left ventricular hypertrophy with repolarization abnormality ( Sokolow-Orozco , [place] product ) ST & T wave abnormality in Inferolateral leads Abnormal ECG When compared with ECG of 10-MAY-2023 13:16, ST & T wave abnormality is more pronounced in inferolateral leads I personally reviewed the tracing and edited the fellows interpretation Confirmed by fellow MD Anuja, Jim ([id number]) on 05/12/2023 1:04:20 PM Confirmed by MD Mono, Eleni ([id number]) on 05/12/2023 9:28:34 PM MUSE SYSTEM 05/12/2023 [...] questions please contact the health customer care specialist that requested your imaging first. ? Electronically signed by: Chyna Johnson MD, [facility] ??([phone]), at 05/12/2023 10:08 AM Narrative 05/12/2023 10:08 AM EDT EXAMINATION: XR CHEST ONE VIEW CLINICAL HISTORY: Post TAVR TECHNIQUE: 1 view of the chest COMPARISON: Chest radiograph from earlier today FINDINGS: Interval placement of endotracheal tube with tip terminating 2 cm above the shira. Interval placement of enteric tube projecting along the expected course of the esophagus and outside the jfzxu-tm-avaw. Interval retraction of right IJ approach pulmonary [...] expected course ofthe esophagus and outside the obamm-rm-xhyw. Interval retraction of right IJ approach pulmonary [...] have questions please contactthe health customer care specialist that requested your imaging first. Electronically signed by: Chyna Johnson MD, [facility]([phone]), at 05/12/2023 10:08 AM Alirio Hudson MD [...] 1955 ? Height: 154 cm ? Account: [id number] Age: 67 yrs ? Weight: 75 kg Gender: Female ?BSA: 1.7 m2 Ordering Physician: RADHA HOLLINS Referring Physician: RADHA HOLLINS Performed By: Dilma Bee RDCS Reason For Study: Guidance for TAVR procedure Exam Location: [facility]. Interpretation Summary PRE TAVR: There is [...] mL/m2. POST TAVR: Normal function of the vjecv-av-oafyj prosthesis. See below for hemodynamic parameters. Slight improvement in left and right ventricular systolic function. LVEF now 20-25%. No pericardial effusion. See report for additional findings. Procedure Limited - 87032. Doppler - 16635. Color Doppler - 93131. Left Ventricle Left ventricle is of normal [...] 307:33 AMBP: 96/63 mmHg Patient Location: [address] : 1955 Height: 154 cm Account: [id number] Age: 67 yrs Weight: 75 kg Gender: Female BSA: 1.7 m2 Ordering Physician: RADHA HOLLINS Referring Physician: RADHA HOLLINS Performed By: Dilma Bee RDCS Reason For Study: Guidance for TAVR procedure Exam Location: [facility]. Interpretation Summary PRE TAVR: There is [...] 28mL/m2. POST TAVR: Normal function of the xveki-qo-ykdiz prosthesis. See belowfor hemodynamic parameters. Slight improvement in left and right ventricularsystolic function. LVEF now 20-25%. No pericardial effusion. See report for additional findings. Procedure Limited - 82460. Doppler - 63188. Color Doppler - 59596. Left Ventricle Left ventricle is of normal [...] Narrative 05/12/2023 2:37 PM EDT ?[facility] ? Cardiac Catheterization/Intervention Report ? Patient Name: Kirstie, Purnima M. ? Procedure Date: 05/12/2023 ? A #: [id number] ? Primary Physician: Zachary, Antelmo N ? Case #: [id number] ? File Name: [id number] ? Catheterization Order Number: [id number] ? [facility] ? Final Report [place], [place] ? Patient Name: ? Purnima M. Kirstie ? ID#: ?[id number] ? : ?1955 ? Procedure Date: ? May 12, 2023 ? Case #: ? [id number] ? Room: ? 6 ? Case Physicians: ?Antelmo Sharma M.D. ?Start: ?08:03 ?Alirio Hudson M.D. ?Admission: ??05/08/2023 ?Lynda Mcgowan M.D. ? Discharge: ??05/22/2023 ?Fellow: ? Emad Adair Tejeda ? Referring Physician: ??Mario Alberto Chin M.D. ? Procedures: ?* Coronary Angiography ?* Left Heart Catheterization ?* Coronary Stent Insertion ?* Transcatheter Aortic Valve Replacement ?* Vascular Closure Device Deployment ?* Temporary Pacemaker Insertion In Drawer Liner ?* Endotracheal Intubation By Non-Cath Physician ?* [...] guide. ??A premounted 4.00 x 30 mm Sylvester Eureka (MINNA) was ? deployed with a maximum [...] calculated STS risk score was 30.1%. A chgmg-ix-gbrlu ?procedure was performed on the pre-existing bioprosthetic stented ?prosthesis. The priority of the cklpx-rd-etejx procedure was Elective. ?The procedure was performed [...] Lai 3 Ultra RESILIA 23 mm THV (s/r=[id number]) transcatheter ?valve was inserted using standard technique. [...] nor was it given in the ?laborer tree tapping. ?Recommended anti-platelet/anti-thrombotic regimen: ?Continue aspirin 81 mg daily for indefinitely. ?These recommendations are made at the time of the intervention. Patient ?and provider preferences or a changing clinical situation may require ?modification of this regimen. Consult [facility] Interventional Cardiology for ?questions. [...] regimen. ? Comments: ?Successful right transfemoral TAVR Kfoqx-wm-Egape with a 23 mm Lai 3 ?THV. [...] access site angiography, ?temporary pacemaker in laborer tree tapping, intubation-non cath physician, vascular ?closure device, transthoracic echo ??and TAVR. Dr. Alirio Hudson M.D. ?performed the left heart catheterization, access site angiography, ?temporary pacemaker in laborer tree tapping, vascular closure device, transthoracic ?echo , TAVR and CPR during cath. Dr. Lynda Mcgowan M.D. performed the ABG, ?anesthesia and intubation-non cath physician. ? Antelmo Sharma M.D. ? Electronically Signed by: Antelmo Sharma M.D. ? Report Finalized: 05/12/2023 ??14:31 ? Report Last Ammended: 07/01/2023 ??11:30 ? Procedure Note Antelmo Sharma MD - 07/01/2023 [facility] Cardiac Catheterization/Intervention Report Patient Name: KirstiePurnima Procedure Date: 05/12/2023 A #: [id number] Primary Physician: Antelmo Sharma Case #: [id number] File Name: [id number] Catheterization Order Number: [id number] [facility] FinalReport [place], [place] Patient Name: Purnima Thacker ID#:[id number] :1955 Procedure Date: May 12, 2023 Case #: [id number] Room: 6 Case Physicians: Antelmo Sharma M.D. Start: 08:03 Alirio Hudson M.D. Admission:05/08/2023 Lynda Mcgowan M.D. Discharge:05/22/2023 Fellow: Rebekah Tejeda M.D. Referring Physician: Mario Alberto Chin M.D. Procedures: * Coronary Angiography * Left Heart Catheterization * Coronary Stent Insertion * Transcatheter Aortic Valve Replacement * Vascular Closure Device Deployment * Temporary Pacemaker Insertion In Drawer Liner * Endotracheal Intubation By Non-Cath Physician * [...] guide. A premounted 4.00 x 30 mm Sylvester Eureka (MINNA) was deployed with a maximum inflation [...] calculated STS risk score was 30.1%. A ooxbq-ic-ihabo procedure was performed on the pre-existing bioprosthetic stented prosthesis. The priority of the vvwmr-dk-cvotz procedure wasElective. The procedure was performed under Moderate sedation performed byLynda Mcgowan M.D. (see anesthesia report for additional details). Alirio Hudson M.D. participated in the case (see Cardiac Surgery reportfor additional details). The TAVR sheath was a 14 Fr Corona eSheath Introducer and theaccess site was femoral. Rapid ventricular pacing was performed. An Corona Lai 3 Ultra RESILIA 23 mm THV (s/m=[id number])transcatheter valve was inserted using standard technique. The [...] to nor was it given inthe laborer tree tapping. Recommended anti-platelet/anti-thrombotic regimen: Continue aspirin 81 mg daily for indefinitely. These recommendations are made at the time of the intervention.Patient and provider preferences or a changing clinical situation mayrequire modification of this regimen. Consult [facility] Interventional Cardiologyfor questions. Conclusions: [...] this regimen. Comments: Successful right transfemoral TAVR Egsan-sv-Dxwie with a 23 mmSapien 3 THV. We [...] access site angiography, temporary pacemaker in laborer tree tapping, intubation-non cath physician,vascular closure device, transthoracic echo and TAVR. Dr. Alirio Hudson M.D. performed the left heart catheterization, access site angiography, temporary pacemaker in laborer tree tapping, vascular closure device,transthoracic echo , TAVR and [...] POC 7.20(Crit ical) 7.35 - 7.45 [facility] Comment:Critical value OKYamel C Lab. pCO2, POC 42 35 - [address] [facility] pO2, POC 260(H) 85 - [address] [facility] Base Excess, POC -11.0(L) -3.0 - 3.0 mmol/L [facility] Bicarbonate, POC 16.7(L) 20.0 - 26.0 mmol/L [facility] Sodium, POC 129(L) 135 - 145 mmol/L [facility] POC Potassium 3.8 3.5 - 5.0 mmol/L [facility] Ionized Calcium, POC 1.12(L) 1.15 - 1.33 mmol/L [facility] POC Hematocrit 23.0(L) 34.0 - 45.0 % [facility] POC Calc Hgb 7.8(L) 11.2 - 15.7 g/dL [facility] Comment:The calculation of h emoglobin from hematocrit assumes a normal MCHC. POC Bgas Loc CC Lab [facility] Blood 05/12/2023 8:50 AM EDT 05/13/2023 12:00 PM EDT Alirio Hudson MD CHEMISTRY ORDERABLE S Performing Organization Address City/State/[facility] Co de Phone Number [facility] [place] [address] * (ABNORMAL) Point of Care Blood Gas Historical (05/12/2023 8:10 AM EDT) pH, POC 7.27(Crit ical) 7.35 - 7.45 [facility] Comment:Critical value OKYamel C Lab. pCO2, POC 37 35 - [address] [facility] pO2, POC 29(Critic al) 85 - [address] [facility] Comment:Critical value OK C C Lab. Base Excess, POC -10.0(L) -3.0 - 3.0 mmol/L [facility] Bicarbonate, POC 16.7(L) 20.0 - 26.0 mmol/L [facility] Sodium, POC 123(L) 135 - 145 mmol/L [facility] POC Potassium 4.0 3.5 - 5.0 mmol/L [facility] Ionized Calcium, POC 1.12(L) 1.15 - 1.33 mmol/L [facility] POC Hematocrit 27.0(L) 34.0 - 45.0 % [facility] POC Calc Hgb 9.2(L) 11.2 - 15.7 g/dL [facility] Comment:The calculation of h emoglobin from hematocrit assumes a normal MCHC. POC Bgas Loc CC Lab [facility] Blood 05/12/2023 8:10 AM EDT 05/13/2023 12:00 PM EDT Alirio Hudson MD CHEMISTRY ORDERABLE S Performing Organization Address City/[facility]/ZIP Co de Phone Number [facility] [place] [address] * (ABNORMAL) Lactate, whole blood, send to lab ([facility]) (05/12/2023 7:00 AM EDT) Lactate WB 2.4(H) 0.5 - 2.2 mmol/L [facility] Blood 05/12/2023 7:00 AM EDT 05/12/2023 7:09 AM EDT Narrative Resulting Agency Comment Spec In Lab Radha Hollins MD CHEMISTRY ORDERABL ES Performing Organization Address [facility] Co de Phone Number [facility] [place] [address] * (ABNORMAL) Comprehensive metabolic panel (non-fasting) (05/12/2023 6:00 AM EDT) Glucose 167 65 - 199 mg/dL [facility] Comment:Diabetes: >=200 mg/d L plus symptoms Blood Urea Nitrogen 67(H) 8 - 18 mg/dL [facility] Creatinine 2.01(H) 0.70 - 1.20 mg/dL [facility] Sodium 131(L) 135 - 145 mmol/L [facility] Potassium 4.3 3.5 - 5.0 mmol/L [facility] Comment: Please note: ??Patients with WBC >100,000 may have falsely elevated Potassium levels. ??For accurate Potassium quantification in these patients send serum separator tube (gold top) for subsequent determinations. ??Contact the Clinical Chemistry Laboratory if there are any questions. Chloride 97(L) 98 - 107 mmol/L [facility] Carbon Dioxide 14(L) 22 - 31 mmol/L [facility] Anion Gap 20(H) 5 - 15 mmol/L [facility] Calcium 8.6 8.5 - 10.5 mg/dL [facility] Protein, Total 6.3 6.1 - 8.0 g/dL [facility] Albumin 3.5 3.2 - 5.2 g/dL [facility] Aspartate Aminotransferase 1,435(H) 0 - 30 unit/L [facility] Alanine Aminotransferase 1,174(H) 0 - 30 unit/L [facility] Alkaline Phosphatase 100 35 - 105 unit/L [facility] Bilirubin, Total 0.9 0.2 - 1.3 mg/dL [facility] Est Glomerular Filtration Rate 27(L) >=60 mL/min/1. 73 m?? [facility] [...] Radha Hollins MD CHEMISTRY ORDERABL ES [facility] [place] [address] * (ABNORMAL) Coox2 (05/12/2023 5:08 AM EDT) pO2, Coox [address] [facility] Hgb Blood Gas 10.4(L) 11.7 - 15.5 g/dL [facility] Oxyhemoglobin, Coox 30.7 % [facility] Carboxyhemoglo bin, Coox 0.3 % [facility] Comment: Nonsmokers: 0.5-1.5% COHB Smokers: Variable, but usually less than 10% Toxic: 20-30% COHB Lethal: Greater than 60% COHB Methemoglobin, Coox 0.8 <=1.5 % [facility] Source Coox Mixed Venous [facility] Blood 05/12/2023 5:08 AM EDT 05/12/2023 5:08 AM EDT Radha Hollisn MD POINT OF CARE TEST ORDERABLES Performing Organization Address City/[facility] Co de Phone Number [facility] [place] [address] * (ABNORMAL) Coox2 (05/12/2023 3:21 AM EDT) pO2, Coox 25 [facility] Hgb Blood Gas 10.8(L) 11.7 - 15.5 g/dL [facility] Oxyhemoglobin, Coox 32.7 % [facility] Carboxyhemoglo bin, Coox 0.3 % [facility] Comment: Nonsmokers: 0.5-1.5% COHB Smokers: Variable, but usually less than 10% Toxic: 20-30% COHB Lethal: Greater than 60% COHB Methemoglobin, Coox 0.7 <=1.5 % [facility] Source Coox Mixed Venous [facility] Blood 05/12/2023 3:21 AM EDT 05/12/2023 3:21 AM EDT Radha Hollins MD POINT OF CARE TEST ORDERABLES Performing Organization Address City/[facility] Co de Phone Number [facility] [place] [address] * (ABNORMAL) BLOOD GAS 2 ARTERIAL (05/12/2023 3:18 AM EDT) pH, Arterial 7.34(L) 7.35 - 7.45 [facility] PCO2, Arterial 30(L) 35 - [address] [facility] PO2, Arterial 72(L) 85 - [address] [facility] Bicarbonate, Arterial 16.0(L) 20.0 - 26.0 mmol/L [facility] Base Excess, Arterial -9.8(L) -3.0 - 3.0 mmol/L [facility] Hgb Blood Gas 11.0(L) 11.7 - 15.5 g/dL [facility] Oxyhemoglobin, Arterial 89.8(L) 94.0 - 97.0 % [facility] Carboxyhemoglob in, Arterial 0.3 % [facility] Comment: Nonsmokers: 0.5-1.5% COHB Smokers: Variable, but usually less than 10% Toxic: 20-30% COHB Lethal: Greater than 60% COHB Methemoglobin, Arterial 0.7 <=1.5 % [facility] Na Whole Blood 131(L) 135 - 145 mmol/L [facility] K Whole Blood 4.2 3.5 - 5.0 mmol/L [facility] Comment: Please note: Patients with WBC >100,000 may have falsely elevated Potassium levels. Contact the Clinical Chemistry Laboratory if there are any questions. ICa Whole Blood 1.12(L) 1.15 - 1.33 mmol/L [facility] Comment: Note: ??Total bilirubin higher than 20 mg/dL may lead to falsely low ionized calcium. CL Whole Blood 100 98 - 107 mmol/L [facility] Gluc Whole Bld 160 65 - 199 mg/dL [facility] Comment:Diabetes: >=200 mg/d L plus symptoms. Lactate WB 2.7(H) 0.5 - 2.2 mmol/L [facility] Flow Art 5.[address] [facility] Blood 05/12/2023 3:18 AM EDT 05/12/2023 3:18 AM EDT Radha Hollins MD POINT OF CARE TEST ORDERABLES [facility] [place] [address] * (ABNORMAL) Coox2 (05/12/2023 1:14 AM EDT) pO2, Coox [address] [facility] Hgb Blood Gas 10.9(L) 11.7 - 15.5 g/dL [facility] Oxyhemoglobin, Coox 37.3 % [facility] Carboxyhemoglo bin, Coox 0.3 % [facility] Comment: Nonsmokers: 0.5-1.5% COHB Smokers: Variable, but usually less than 10% Toxic: 20-30% COHB Lethal: Greater than 60% COHB Methemoglobin, Coox 0.5 <=1.5 % [facility] Source Coox Mixed Venous [facility] Blood 05/12/2023 1:14 AM EDT 05/12/2023 1:14 AM EDT Radha Hollins MD POINT OF CARE TEST ORDERABLES [facility] [place] [address] * (ABNORMAL) BLOOD GAS 2 ARTERIAL (05/12/2023 1:06 AM EDT) pH, Arterial 7.34(L) 7.35 - 7.45 [facility] PCO2, Arterial 30(L) 35 - [address] [facility] PO2, Arterial 81(L) 85 - [address] [facility] Bicarbonate, Arterial 15.7(L) 20.0 - 26.0 mmol/L [facility] Base Excess, Arterial -10.1(L) -3.0 - 3.0 mmol/L [facility] Hgb Blood Gas 11.0(L) 11.7 - 15.5 g/dL [facility] Oxyhemoglobin, Arterial 92.3(L) 94.0 - 97.0 % [facility] Carboxyhemoglob in, Arterial 0.2 % [facility] Comment: Nonsmokers: 0.5-1.5% COHB Smokers: Variable, but usually less than 10% Toxic: 20-30% COHB Lethal: Greater than 60% COHB Methemoglobin, Arterial 0.6 <=1.5 % [facility] Na Whole Blood 131(L) 135 - 145 mmol/L [facility] K Whole Blood 4.2 3.5 - 5.0 mmol/L [facility] Comment: Please note: Patients with WBC >100,000 may have falsely elevated Potassium levels. Contact the Clinical Chemistry Laboratory if there are any questions. ICa Whole Blood 1.13(L) 1.15 - 1.33 mmol/L [facility] Comment: Note: ??Total bilirubin higher than 20 mg/dL may lead to falsely low ionized calcium. CL Whole Blood 99 98 - 107 mmol/L [facility] Gluc Whole Bld 132 65 - 199 mg/dL [facility] Comment:Diabetes: >=200 mg/d L plus symptoms. Lactate WB 2.7(H) 0.5 - 2.2 mmol/L [facility] Flow Art 5.0 LPM [facility] Blood 05/12/2023 1:06 AM EDT 05/12/2023 1:06 AM EDT Radha Hollins MD POINT OF CARE TEST ORDERABLES Performing Organization Address City/State/[facility] Co de Phone Number [facility] [place] [address] * (ABNORMAL) Differential, Automated (05/12/2023 1:05 AM EDT) Neutrophil % 83.3 % [facility] Neutrophil Absolute 7.49(H) 1.70 - 6.10 x10(3)/mc L [facility] Lymph % 7.1 % [facility] Lymphocytes Abs 0.6(L) 0.9 - 3.2 x10(3)/mc L [facility] Monocyte % 8.9 % [facility] Monocyte Abs 0.8 0.3 - 0.9 x10(3)/mc L [facility] Eos % 0.0 % [facility] Eosinophils Abs 0.0 0.0 - 0.4 x10(3)/mc L [facility] Basophil % 0.1 % [facility] Baso Absolute 0.0 0.0 - 0.1 x10(3)/mc L [facility] Immature Gran % 0.60 % [facility] Comment: Immature granulocytes(IG's)percentage and absolute count will include metamyelocytes, myelocytes, and promyelocytes. Blood smears from CBCs yielding IG's will be scanned manually for concordance. If this scan disagrees with the automated IG or if promyelocytes are noted, a manual differential will be performed. Immature Gran Absolute 0.05(H) 0.00 - 0.04 x10(3)/mc L [facility] Blood 05/12/2023 1:05 AM EDT 05/12/2023 1:15 AM EDT Narrative Resulting Agency Comment Spec In Lab Gianni Fletcher MD HEMATOLOGY ORDERABLE S [facility] [place] [address] * (ABNORMAL) Hemogram (05/12/2023 1:05 AM EDT) White Blood Cell 9.0 4.0 - 9.5 x10(3)/mc L [facility] Red Blood Cell 3.01(L) 4.00 - 5.21 x10(6)/ L [facility] Hemoglobin 9.8(L) 11.7 - 15.5 g/dL [facility] Hematocrit 28.7(L) 35.7 - 45.8 % [facility] Mean Cell Volume 95.3(H) 82.6 - 94.[address] [facility] Mean Cell Hemoglobin 32.6(H) 27.1 - 32.[address] [facility] Mean Cell Hemoglobin Concentration 34.1 31.7 - 35.0 g/dL [facility] Platelet 186 145 - 357 x10(3)/mc L [facility] RDW Standard Deviation 43.7 37.0 - 46.[address] [facility] RDW coefficient of variation 12.7 11.5 - 14.1 % [facility] Mean Platelet Volume 10.3 7.6 - 12.[address] [facility] NRBC% auto 0.0 % [facility] NRBC Absolute 0.000 0.000 - 0.000 x10(3)/mc L [facility] Blood 05/12/2023 1:05 AM EDT 05/12/2023 1:15 AM EDT Narrative Resulting Agency Comment Spec In Lab Gianni Fletcher MD HEMATOLOGY ORDERABLE S [facility] [place] [address] * (ABNORMAL) Comprehensive metabolic panel (non-fasting) (05/12/2023 1:05 AM EDT) Glucose 141 65 - 199 mg/dL [facility] Comment:Diabetes: >=200 mg/d L plus symptoms Blood Urea Nitrogen 63(H) 8 - 18 mg/dL [facility] Creatinine 1.86(H) 0.70 - 1.20 mg/dL [facility] Sodium 131(L) 135 - 145 mmol/L [facility] Potassium 4.4 3.5 - 5.0 mmol/L [facility] Comment: Please note: ??Patients with WBC >100,000 may have falsely elevated Potassium levels. ??For accurate Potassium quantification in these patients send serum separator tube (gold top) for subsequent determinations. ??Contact the Clinical Chemistry Laboratory if there are any questions. Chloride 96(L) 98 - 107 mmol/L [facility] Carbon Dioxide 14(L) 22 - 31 mmol/L [facility] Anion Gap 21(H) 5 - 15 mmol/L [facility] Calcium 9.0 8.5 - 10.5 mg/dL [facility] Protein, Total 6.6 6.1 - 8.0 g/dL [facility] Albumin 3.9 3.2 - 5.2 g/dL [facility] Aspartate Aminotransferase 1,227(H) 0 - 30 unit/L [facility] Alanine Aminotransferase 1,097(H) 0 - 30 unit/L [facility] Alkaline Phosphatase 108(H) 35 - 105 unit/L [facility] Bilirubin, Total 1.0 0.2 - 1.3 mg/dL [facility] Est Glomerular Filtration Rate 29(L) >=60 mL/min/1. 73 m?? [facility] [...] Lab Radha Hollins MD [place] [address] * XR Chest One View (05/12/2023 1:00 [...] questions please contact the health customer care specialist that requested your imaging first. [...] have questions please contactthe health customer care specialist that requested your imaging first. Radha Hollins MD IMG DX ORDERABLES * (ABNORMAL) Coox2 (05/12/2023 12:30 AM EDT) pO2, Coox [address] [facility] Hgb Blood Gas 10.9(L) 11.7 - 15.5 g/dL [facility] Oxyhemoglobin, Coox 25.1 % [facility] Carboxyhemoglo bin, Coox 0.3 % [facility] Comment: Nonsmokers: 0.5-1.5% COHB Smokers: Variable, but usually less than 10% Toxic: 20-30% COHB Lethal: Greater than 60% COHB Methemoglobin, Coox 1.4 <=1.5 % [facility] Source Coox Mixed Venous [facility] Blood 05/12/2023 12:3 0 AM EDT 05/12/2023 12:30 AM EDT Radha Hollins MD POINT OF CARE TEST ORDERABLES [facility] [place] [address] * XR Chest One View (05/11/2023 11:45 [...] questions please contact the health customer care specialist that requested your imaging first. [...] have questions please contactthe health customer care specialist that requested your imaging first. Radha Hollins MD IMG DX ORDERABLES * (ABNORMAL) Lactate, whole blood, send to lab ([facility] (05/11/2023 7:40 PM EDT) Lactate WB 4.8(Critic al) 0.5 - 2.2 mmol/L [facility] Comment:Called by: IMM, Read back by: Magdalena Baires, Date/Time:05/11/23 19:54. Blood 05/11/2023 7:40 PM EDT 05/11/2023 7:49 PM EDT Narrative Resulting Agency Comment Spec In Lab Radha Hollins MD CHEMISTRY ORDERABL ES Performing Organization Address City/[facility]/ZIP Co de Phone Number [facility] [place] [address] * Urine culture (05/11/2023 7:22 PM EDT) Pathologist [facility] Urine Culture 50,000-99,000 cfu/ml Normal mucosal herman Susceptibilit y testing not routinely performed for Coagulase Negative Staphylococcu s species and other Gram Positive organisms from urine. [facility] Clean Catch Urine 05/11/2023 7:22 PM EDT 05/11/2023 8:50 PM EDT Narrative Resulting Agency Comment Spec In Lab Brody Kaplan APRN MICROBIOLOGY - GENE RAL ORDERABLES Performing Organization Address [facility]/ZIP Co de Phone Number [facility] [place] [address] * (ABNORMAL) Urinalysis Microscopic Exam (05/11/2023 7:22 PM EDT) RBC, Urine 2 0 - 4 /HPF [facility] WBC, Urine >100(H) 0 - 5 /HPF [facility] Bacteria, Urine Occasional (A) None /HPF [facility] Squamous Epithelial Cells Raw Data, Urine 5(H) <=4 /HPF [facility] Hyaline Casts, Urine 3(H) 0 - 2 /LPF [facility] Clean Catch Urine 05/11/2023 7:22 PM EDT 05/11/2023 7:31 PM EDT Narrative Resulting Agency Comment Spec In Lab Brody Kaplan KENO WRITER/RUNNER URINE ORDERABLES [facility] [place] [address] * (ABNORMAL) Urinalysis with reflex Culture (05/11/2023 7:22 PM EDT) Glucose, Urine Dipstick Negative Negative mg/dL [facility] Protein, Urine Dipstick Trace(A) Negative mg/dL [facility] Bilirubin, Urine Dipstick Negative Negative mg/dL [facility] Comment: Clinical correlation required for positive Urine Bilirubin results as false positive may occur with some drugs and drug related products. If a false positive is suspected a serum total bilirubin should be considered if clinically indicated. Urobilinogen, Urine Dipstick Normal Normal mg/dL [facility] pH, Urn (dipstick) 5.0 5.0 - 8.0 [facility] Blood, Urine Dipstick Trace(A) Negative mg/dL [facility] Ketone, Urine Dipstick Negative Negative mg/dL [facility] Nitrite, Urine Dipstick Negative Negative [facility] Leukocytes, Urine Dipstick Moderate(A) Negative mcL [facility] Appearance, Urine Dipstick Cloudy(A) Clear [facility] Specific Ismay Urine Automated >=1.030(A) 1.005 - 1.030 [facility] Color, Urine Dipstick Yellow Yellow [facility] Reflex to Culture Yes [facility] Clean Catch Urine 05/11/2023 7:22 PM EDT 05/11/2023 7:31 PM EDT Narrative Resulting Agency Comment Spec In Lab Brody Kaplan KENO WRITER/RUNNER URINE ORDERABLES [facility] [place] [address] * (ABNORMAL) pro-Brain Natriuretic Peptide (05/11/2023 7:11 PM EDT) NT-proBNP >35,000(H) <=124 pg/mL [facility] Blood 05/11/2023 7:11 PM EDT 05/11/2023 7:26 PM EDT Narrative Resulting Agency Comment Spec In Lab Radha Hollins MD CHEMISTRY ORDERABL ES Performing Organization Address City/[facility]/ZIP Co de Phone Number [facility] [place] [address] * (ABNORMAL) Lactate, whole blood, send to lab ([facility] (05/11/2023 2:47 PM EDT) Lactate WB 2.9(H) 0.5 - 2.2 mmol/L [facility] Blood 05/11/2023 2:47 PM EDT 05/11/2023 2:53 PM EDT Narrative Resulting Agency Comment Spec In Lab Juan Luis Gonzalez MD CHEMISTRY ORDERABLES Performing Organization Address [facility] Co de Phone Number [facility] [place] [address] * (ABNORMAL) CT Angiogram Abdomen & Pelvis [...] questions please contact the health customer care specialist that requested your imaging first. [...] questions please contact the health customer care specialist that requested your imaging first. ? Electronically signed by: Cullen Narayanan MD, [facility] ([phone]), at 05/11/2023 4:37 PM Narrative 05/11/2023 4:37 [...] 610 mm2 Circumference: 88 mm Calcification: Mild Nagnufb-mm-dwdyotab height: Left: 6.2 mm Right: 5.8 mm THORACIC AORTA Description: Normal course and caliber. ??Mild diffuse atherosclerotic changes. No acute aortopathy noted. Physical Therapy Aide dimensions: Aortic root: 27.6 mm Max ascending aorta: 30.5 mm x 27.7 mm Suggested fluoroscopic angulation based on line extending through the nadirs of the three sinuses of Valsalva, set equidistant: ?? TAJIK ??9 degrees; cranial 7 degrees MITRAL: Mitral [...] 610 mm2 Circumference: 88 mm Calcification: Mild Ujcjwog-sb-uvqnsrgh height: Left: 6.2 mm Right: 5.8 mm THORACIC AORTA Description: Normal course and caliber. Mild diffuse atheroscleroticchanges. No acute aortopathy noted. Physical Therapy Aide dimensions: Aortic root: 27.6 mm Max ascending aorta: 30.5 mm x 27.7 mm Suggested fluoroscopic angulation based on line extending through thenadirs of the three sinuses of Valsalva, set equidistant: TAJIK 9 degrees; cranial 7 degrees MITRAL: Mitral [...] have questions please contactthe health customer care specialist that requested your imaging first. Electronically signed by: Cullen Narayanan MD, [facility]([phone]), at 05/11/2023 4:37 PM Antelmo Sharma MD IMG CT ORDERABLES * (ABNORMAL) Lactate, whole blood, send to lab ([facility] (05/11/2023 9:29 AM EDT) [facility] Lactate WB 3.1(H) 0.5 - 2.2 mmol/L [facility] Blood 05/11/2023 9:29 AM EDT 05/11/2023 9:38 AM EDT Narrative Resulting Agency Comment Spec In Lab Juan Luis Gonzalez MD CHEMISTRY ORDERABLES [facility] [place] [address] * (ABNORMAL) Differential, Automated (05/11/2023 4:42 AM EDT) Pathologist [facility] Neutrophil % 78.1 % [facility] Neutrophil Absolute 5.46 1.70 - 6.10 x10(3)/mc L [facility] Lymph % 10.6 % [facility] Lymphocytes Abs 0.7(L) 0.9 - 3.2 x10(3)/mc L [facility] Monocyte % 9.6 % [facility] Monocyte Abs 0.7 0.3 - 0.9 x10(3)/mc L [facility] Eos % 0.0 % [facility] Eosinophils Abs 0.0 0.0 - 0.4 x10(3)/mc L [facility] Basophil % 0.4 % [facility] Baso Absolute 0.0 0.0 - 0.1 x10(3)/mc L [facility] Immature Gran % 1.30 % [facility] Comment: Immature granulocytes(IG's)percentage and absolute count will include metamyelocytes, myelocytes, and promyelocytes. Blood smears from CBCs yielding IG's will be scanned manually for concordance. If this scan disagrees with the automated IG or if promyelocytes are noted, a manual differential will be performed. Immature Gran Absolute 0.09(H) 0.00 - 0.04 x10(3)/ L [facility] Blood 05/11/2023 4:42 AM EDT 05/11/2023 4:49 AM EDT Narrative Resulting Agency Comment Spec In Lab Klaudia Reid MD HEMATOLOGY OR DERABLES Performing Organization Address City/State/[facility] Co de Phone Number [facility] [place] [address] * (ABNORMAL) Hemogram (05/11/2023 4:42 AM EDT) White Blood Cell 7.0 4.0 - 9.5 x10(3)/mc L [facility] Red Blood Cell 3.44(L) 4.00 - 5.21 x10(6)/mc L [facility] Hemoglobin 11.1(L) 11.7 - 15.5 g/dL [facility] Hematocrit 32.7(L) 35.7 - 45.8 % [facility] Mean Cell Volume 95.1(H) 82.6 - 94.[address] [facility] Mean Cell Hemoglobin 32.3(H) 27.1 - 32.[address] [facility] Mean Cell Hemoglobin Concentration 33.9 31.7 - 35.0 g/dL [facility] Platelet 165 145 - 357 x10(3)/mc L [facility] RDW Standard Deviation 43.1 37.0 - 46.[address] [facility] RDW coefficient of variation 12.7 11.5 - 14.1 % [facility] Mean Platelet Volume 10.1 7.6 - 12.[address] [facility] NRBC% auto 0.0 % [facility] NRBC Absolute 0.000 0.000 - 0.000 x10(3)/mc L [facility] Blood 05/11/2023 4:42 AM EDT 05/11/2023 4:49 AM EDT Narrative Resulting Agency Comment Spec In Lab Klaudia Reid MD HEMATOLOGY OR DERABLES Performing Organization Address [facility] Co de Phone Number [facility] [place] [address] * Heparin (unfractionated) Level (05/11/2023 4:42 AM EDT) UF Heparin 0.46 IU/mL [facility] Comment: Heparin (anti-Xa) levels should [...] MD HEMATOLOGY ORDERAB LES Performing Organization Address [facility] Co de Phone Number [facility] [place] [address] * (ABNORMAL) Comprehensive metabolic panel (non-fasting) (05/11/2023 4:42 AM EDT) Glucose 143 65 - 199 mg/dL [facility] Comment:Diabetes: >=200 mg/d L plus symptoms Blood Urea Nitrogen 42(H) 8 - 18 mg/dL [facility] Creatinine 1.24(H) 0.70 - 1.20 mg/dL [facility] Sodium 134(L) 135 - 145 mmol/L [facility] Potassium 4.6 3.5 - 5.0 mmol/L [facility] Comment: Please note: ??Patients with WBC >100,000 may have falsely elevated Potassium levels. ??For accurate Potassium quantification in these patients send serum separator tube (gold top) for subsequent determinations. ??Contact the Clinical Chemistry Laboratory if there are any questions. Chloride 99 98 - 107 mmol/L [facility] Carbon Dioxide 14(L) 22 - 31 mmol/L [facility] Anion Gap 21(H) 5 - 15 mmol/L [facility] Calcium 9.6 8.5 - 10.5 mg/dL [facility] Protein, Total 7.2 6.1 - 8.0 g/dL [facility] Albumin 3.7 3.2 - 5.2 g/dL [facility] Aspartate Aminotransferase 144(H) 0 - 30 unit/L [facility] Comment:result rechecked-ssc Alanine Aminotransferase 130(H) 0 - 30 unit/L [facility] Comment:result rechecked-ssc Alkaline Phosphatase 72 35 - 105 unit/L [facility] Bilirubin, Total 0.8 0.2 - 1.3 mg/dL [facility] Est Glomerular Filtration Rate 48(L) >=60 mL/min/1. 73 m?? [facility] [...] CHEMISTRY ORDERABL ES Performing Organization Address City/[facility]/ZIP Co de Phone Number [facility] [place] [address] * EKG 12 Lead (05/10/2023 1:16 PM EDT) Ventricular rate 118 BPM MUSE SYSTEM Atrial Rate 118 BPM MUSE SYSTEM P-R Interval 152 ms MUSE SYSTEM QRS Duration 104 ms MUSE SYSTEM Q-T Interval 316 ms MUSE SYSTEM QTC Calculated (Bezet) 442 ms MUSE SYSTEM Calculated P [place] 29 degrees MUSE SYSTEM Calculated R [place] 18 degrees MUSE SYSTEM Calculated T [place] -173 degrees MUSE SYSTEM INTERPRETATION Sinus tachycardia [...] Anterior leads Confirmed by MD Villareal Danette ([id number]) on 05/10/2023 8:47:46 PM MUSE SYSTEM 05/10/2023 1:16 PM EDT 05/10/2023 8:47 PM EDT Juan Luis Gonzalez MD ECG ORDERABLES Performing Organization Address [facility] Co de Phone Number MUSE SYSTEM * Lactate, whole blood, send to lab ([facility] (05/10/2023 11:52 AM EDT) Lactate WB 1.8 0.5 - 2.2 mmol/L [facility] Blood 05/10/2023 11:5 2 AM EDT 05/10/2023 12:13 PM EDT Narrative Resulting Agency Comment Spec In Lab Juan Luis Gonzalez MD CHEMISTRY ORDERABLES Performing Organization Address City/[facility]/ZIP Co de Phone Number [facility] [place] [address] * XR Chest One View (05/10/2023 11:16 [...] questions please contact the health customer care specialist that requested your imaging first. ? Electronically signed by: ALIX RUVALCABA MD, [facility] ([phone]), at 05/10/2023 1:25 PM Narrative 05/10/2023 1:25 [...] have questions please contactthe health customer care specialist that requested your imaging first. Electronically signed by: ALIX RUVALCABA MD, [facility]([phone]), at 05/10/2023 1:25 PM Juan Luis Gonzalez MD IMG DX ORDERABLES * EKG 12 Lead (05/10/2023 7:59 AM EDT) Pathologist [facility] Ventricular rate 115 BPM MUSE SYSTEM Atrial Rate 115 BPM MUSE SYSTEM P-R Interval 142 ms MUSE SYSTEM QRS Duration 102 ms MUSE SYSTEM Q-T Interval 322 ms MUSE SYSTEM QTC Calculated (Bezet) 445 ms MUSE SYSTEM Calculated P [place] 36 degrees MUSE SYSTEM Calculated R [place] 28 degrees MUSE SYSTEM Calculated T [place] -119 degrees MUSE SYSTEM INTERPRETATION Sinus tachycardia with frequent Premature ventricular complexes and Fusion complexes ST & T wave abnormality, consider lateral ischemia Abnormal ECG When compared with ECG of 08-MAY-2023 15:51, No significant change was found I personally reviewed the tracing and edited the fellows interpretation Confirmed by fellow MD Anitha, [place] hospital () on 05/11/2023 6:19:54 AM Confirmed by MD Tram, Chel ([id number]) on 05/11/2023 3:18:56 PM MUSE SYSTEM 05/10/2023 7:59 AM EDT 05/11/2023 3:18 PM EDT Radha Hollins MD ECG ORDERABLES MUSE SYSTEM * (ABNORMAL) Differential, Automated (05/10/2023 2:28 AM EDT) Neutrophil % 77.1 % [facility] Neutrophil Absolute 4.01 1.70 - 6.10 x10(3)/mc L [facility] Lymph % 14.0 % [facility] Lymphocytes Abs 0.7(L) 0.9 - 3.2 x10(3)/ L [facility] Monocyte % 7.7 % [facility] Monocyte Abs 0.4 0.3 - 0.9 x10(3)/[facility] Eos % 0.4 % [facility] Eosinophils Abs 0.0 0.0 - 0.4 x10(3)/[facility] Basophil % 0.4 % [facility] Baso Absolute 0.0 0.0 - 0.1 x10(3)/[facility] Immature Gran % 0.40 % [facility] Comment: Immature granulocytes(IG's)percentage and absolute count will include metamyelocytes, myelocytes, and promyelocytes. Blood smears from CBCs yielding IG's will be scanned manually for concordance. If this scan disagrees with the automated IG or if promyelocytes are noted, a manual differential will be performed. Immature Gran Absolute 0.02 0.00 - 0.04 x10(3)/[facility] Blood 05/10/2023 2:28 AM EDT 05/10/2023 2:57 AM EDT Narrative Resulting Agency Comment Spec In Lab Klaudia Reid MD HEMATOLOGY OR DERABLES Performing Organization Address City/State/[facility] Co de Phone Number [facility] [place] [address] * (ABNORMAL) Hemogram (05/10/2023 2:28 AM EDT) White Blood Cell 5.2 4.0 - 9.5 x10(3)/[facility] Red Blood Cell 3.11(L) 4.00 - 5.21 x10(6)/[facility] Hemoglobin 10.2(L) 11.7 - 15.5 g/dL [facility] Hematocrit 30.2(L) 35.7 - 45.8 % [facility] Mean Cell Volume 97.1(H) 82.6 - 94.[address] [facility] Mean Cell Hemoglobin 32.8(H) 27.1 - 32.[address] [facility] Mean Cell Hemoglobin Concentration 33.8 31.7 - 35.0 g/dL [facility] Platelet 151 145 - 357 x10(3)/mc L [facility] RDW Standard Deviation 44.9 37.0 - 46.[address] [facility] RDW coefficient of variation 12.8 11.5 - 14.1 % [facility] Mean Platelet Volume 9.8 7.6 - 12.[address] [facility] NRBC% auto 0.0 % [facility] NRBC Absolute 0.000 0.000 - 0.000 x10(3)/mc L [facility] Blood 05/10/2023 2:28 AM EDT 05/10/2023 2:57 AM EDT Narrative Resulting Agency Comment Spec In Lab Klaudia Reid MD HEMATOLOGY OR DERABLES [facility] [place] [address] * (ABNORMAL) Comprehensive metabolic panel (non-fasting) (05/10/2023 2:28 AM EDT) Pathologist [facility] Glucose 100 65 - 199 mg/dL [facility] Comment:Diabetes: >=200 mg/d L plus symptoms Blood Urea Nitrogen 30(H) 8 - 18 mg/dL [facility] Creatinine 0.90 0.70 - 1.20 mg/dL [facility] Sodium 134(L) 135 - 145 mmol/L [facility] Potassium 4.1 3.5 - 5.0 mmol/L [facility] Comment: Please note: ??Patients with WBC >100,000 may have falsely elevated Potassium levels. ??For accurate Potassium quantification in these patients send serum separator tube (gold top) for subsequent determinations. ??Contact the Clinical Chemistry Laboratory if there are any questions. Chloride 102 98 - 107 mmol/L [facility] Carbon Dioxide 20(L) 22 - 31 mmol/L [facility] Anion Gap 12 5 - 15 mmol/L [facility] Calcium 9.3 8.5 - 10.5 mg/dL [facility] Protein, Total 6.4 6.1 - 8.0 g/dL [facility] Albumin 3.7 3.2 - 5.2 g/dL [facility] Aspartate Aminotransferase 24 0 - 30 unit/L [facility] Alanine Aminotransferase 14 0 - 30 unit/L [facility] Alkaline Phosphatase 70 35 - 105 unit/L [facility] Bilirubin, Total 0.5 0.2 - 1.3 mg/dL [facility] Est Glomerular Filtration Rate 70 >=60 mL/min/1. 73 m?? [facility] Comment: This patient's estimated [...] Radha Hollins MD CHEMISTRY ORDERABL ES [facility] [place] [address] * Heparin (unfractionated) Level (05/10/2023 2:28 AM EDT) UF Heparin 0.37 IU/mL [facility] Comment: Heparin (anti-Xa) levels [...] Lab Radha Hollins MD HEMATOLOG[place] [address] * (ABNORMAL) Differential, Automated (05/09/2023 4:00 AM EDT) Neutrophil % 81.7 % [facility] Neutrophil Absolute 5.26 1.70 - 6.10 x10(3)/mc L [facility] Lymph % 10.7 % [facility] Lymphocytes Abs 0.7(L) 0.9 - 3.2 x10(3)/mc L [facility] Monocyte % 6.5 % [facility] Monocyte Abs 0.4 0.3 - 0.9 x10(3)/mc L [facility] Eos % 0.5 % [facility] Eosinophils Abs 0.0 0.0 - 0.4 x10(3)/mc L [facility] Basophil % 0.3 % [facility] Baso Absolute 0.0 0.0 - 0.1 x10(3)/mc L [facility] Immature Gran % 0.30 % [facility] Comment: Immature granulocytes(IG's)percentage and absolute count will include metamyelocytes, myelocytes, and promyelocytes. Blood smears from CBCs yielding IG's will be scanned manually for concordance. If this scan disagrees with the automated IG or if promyelocytes are noted, a manual differential will be performed. Immature Gran Absolute 0.02 0.00 - 0.04 x10(3)/mc L [facility] Blood 05/09/2023 4:00 AM EDT 05/09/2023 4:19 AM EDT Narrative Resulting Agency Comment Spec In Lab Klaudia Reid MD HEMATOLOGY OR DERABLES Performing Organization Address City/[facility]/ZIP [place] [address] * (ABNORMAL) Hemogram (05/09/2023 4:00 AM EDT) White Blood Cell 6.4 4.0 - 9.5 x10(3)/mc L [facility] Red Blood Cell 3.15(L) 4.00 - 5.21 x10(6)/mc L [facility] Hemoglobin 10.2(L) 11.7 - 15.5 g/dL [facility] Hematocrit 30.3(L) 35.7 - 45.8 % [facility] Mean Cell Volume 96.2(H) 82.6 - 94.[address] [facility] Mean Cell Hemoglobin 32.4(H) 27.1 - 32.[address] [facility] Mean Cell Hemoglobin Concentration 33.7 31.7 - 35.0 g/dL [facility] Platelet 151 145 - 357 x10(3)/mc L [facility] RDW Standard Deviation 44.7 37.0 - 46.[address] [facility] RDW coefficient of variation 12.8 11.5 - 14.1 % [facility] Mean Platelet Volume 9.4 7.6 - 12.[address] [facility] NRBC% auto 0.0 % [facility] NRBC Absolute 0.000 0.000 - 0.000 x10(3)/ L [facility] Blood 05/09/2023 4:00 AM EDT 05/09/2023 4:19 AM EDT Narrative Resulting Agency Comment Spec In Lab Klaudia Reid MD HEMATOLOGY OR DERABLES Performing Organization Address City/State/[facility] Co de Phone Number [facility] [place] [address] * Heparin (unfractionated) Level (05/09/2023 4:00 AM EDT) UF Heparin 0.47 IU/mL [facility] Comment: Heparin (anti-Xa) [...] Radha Hollins MD HEMATOLOGY ORDERAB LES [facility] [address] [place] [address] * (ABNORMAL) Comprehensive metabolic panel (non-fasting) (05/09/2023 4:00 AM EDT) Glucose 108 65 - 199 mg/dL [facility] Comment:Diabetes: >=200 mg/d L plus symptoms Blood Urea Nitrogen 31(H) 8 - 18 mg/dL [facility] Creatinine 1.03 0.70 - 1.20 mg/dL [facility] Sodium 137 135 - 145 mmol/L [facility] Potassium 4.4 3.5 - 5.0 mmol/L [facility] Comment: Please note: ??Patients with WBC >100,000 may have falsely elevated Potassium levels. ??For accurate Potassium quantification in these patients send serum separator tube (gold top) for subsequent determinations. ??Contact the Clinical Chemistry Laboratory if there are any questions. Chloride 102 98 - 107 mmol/L [facility] Carbon Dioxide 20(L) 22 - 31 mmol/L [facility] Anion Gap 15 5 - 15 mmol/L [facility] Calcium 9.3 8.5 - 10.5 mg/dL [facility] Protein, Total 6.6 6.1 - 8.0 g/dL [facility] Albumin 3.8 3.2 - 5.2 g/dL [facility] Aspartate Aminotransferase 32(H) 0 - 30 unit/L [facility] Alanine Aminotransferase 18 0 - 30 unit/L [facility] Alkaline Phosphatase 78 35 - 105 unit/L [facility] Bilirubin, Total 0.5 0.2 - 1.3 mg/dL [facility] Est Glomerular Filtration Rate 60 >=60 mL/min/1. 73 m?? [facility] [...] MD CHEMISTRY ORDERABL ES Performing Organization Address [facility] Co de Phone Number [facility] [place] [address] * (ABNORMAL) pro-Brain Natriuretic Peptide (05/08/2023 4:00 PM EDT) NT-proBNP 25,503(H) <=124 pg/mL [facility] Blood Venous Draw / Unknown 05/08/2023 4:00 PM EDT 05/08/2023 4:25 PM EDT Narrative Resulting Agency Comment Spec In Lab Juan Luis Gonzalez MD CHEMISTRY ORDERABLES Performing Organization Address City/[facility] Co de Phone Number [facility] [place] [address] * Magnesium (05/08/2023 4:00 PM EDT) Magnesium 0.82 0.69 - 1.07 mmol/L [facility] Blood 05/08/2023 4:00 PM EDT 05/08/2023 4:06 PM EDT Narrative Resulting Agency Comment Spec In Lab Enrique Chua MD CHEMISTRY ORDERABLES Performing Organization Address [facility] Co de Phone Number [facility] [place] [address] * Potassium (05/08/2023 4:00 PM EDT) Potassium 3.9 3.5 - 5.0 mmol/L [facility] Comment: Please note: ??Patients [...] ORDERABL ES Performing Organization Address [facility] [place] [address] * Heparin (unfractionated) Level (05/08/2023 4:00 PM EDT) UF Heparin 0.43 IU/mL [facility] Comment: Heparin (anti-Xa) levels [...] ORDERAB LES Performing Organization Address [facility] Co de Phone Number [facility] [place] [address] * EKG 12 Lead (05/08/2023 3:51 PM EDT) Ventricular rate 98 BPM MUSE SYSTEM Atrial Rate 98 BPM MUSE SYSTEM P-R Interval 150 ms MUSE SYSTEM QRS Duration 102 ms MUSE SYSTEM Q-T Interval 358 ms MUSE SYSTEM QTC Calculated (Bezet) 457 ms MUSE SYSTEM Calculated P [place] 38 degrees MUSE SYSTEM Calculated R [place] 48 degrees MUSE SYSTEM Calculated T [place] -112 degrees MUSE SYSTEM INTERPRETATION Sinus rhythm with frequent and consecutive Premature ventricular and fusion complexes Septal infarct , age undetermined ST & T wave abnormality, consider anterolateral ischemia Abnormal ECG When compared with ECG of 09-NOV-2022 11:17, T wave inversion now evident in Anterolateral leads Confirmed by MD Harshil, Enrique Bell ([id number]) on 05/10/2023 8:11:46 AM MUSE SYSTEM 05/08/2023 3:51 PM EDT 05/10/2023 8:11 AM EDT Radha Hollins MD ECG ORDERABLES MUSE SYSTEM * (ABNORMAL) Differential, Automated (05/08/2023 11:38 AM EDT) Pathologist [facility] Neutrophil % 71.3 % [facility] Neutrophil Absolute 2.91 1.70 - 6.10 x10(3)/mc L [facility] Lymph % 19.1 % [facility] Lymphocytes Abs 0.8(L) 0.9 - 3.2 x10(3)/mc L [facility] Monocyte % 9.0 % [facility] Monocyte Abs 0.4 0.3 - 0.9 x10(3)/mc L [facility] Eos % 0.2 % [facility] Eosinophils Abs 0.0 0.0 - 0.4 x10(3)/mc L [facility] Basophil % 0.2 % [facility] Baso Absolute 0.0 0.0 - 0.1 x10(3)/mc L [facility] Immature Gran % 0.20 % [facility] Comment: Immature granulocytes(IG's)percentage and absolute count will include metamyelocytes, myelocytes, and promyelocytes. Blood smears from CBCs yielding IG's will be scanned manually for concordance. If this scan disagrees with the automated IG or if promyelocytes are noted, a manual differential will be performed. Immature Gran Absolute 0.01 0.00 - 0.04 x10(3)/mc L [facility] Blood 05/08/2023 11:3 8 AM EDT 05/08/2023 11:44 AM EDT Narrative Resulting Agency Comment Spec In Lab Lincoln Sal MD HEMATOLOGY ORDERA BLES [facility] [place] [address] * (ABNORMAL) Hemogram (05/08/2023 11:38 AM EDT) White Blood Cell 4.1 4.0 - 9.5 x10(3)/ L [facility] Red Blood Cell 3.05(L) 4.00 - 5.21 x10(6)/ L [facility] Hemoglobin 10.2(L) 11.7 - 15.5 g/dL [facility] Hematocrit 29.6(L) 35.7 - 45.8 % [facility] Mean Cell Volume 97.0(H) 82.6 - 94.[address] [facility] Mean Cell Hemoglobin 33.4(H) 27.1 - 32.[address] [facility] Mean Cell Hemoglobin Concentration 34.5 31.7 - 35.0 g/dL [facility] Platelet 136(L) 145 - 357 x10(3)/mc L [facility] RDW Standard Deviation 44.3 37.0 - 46.[address] [facility] RDW coefficient of variation 12.6 11.5 - 14.1 % [facility] Mean Platelet Volume 9.4 7.6 - 12.[address] [facility] NRBC% auto 0.0 % [facility] NRBC Absolute 0.000 0.000 - 0.000 x10(3)/ L [facility] Blood 05/08/2023 11:3 8 AM EDT 05/08/2023 11:44 AM EDT Narrative Resulting Agency Comment Spec In Lab Lincoln Sal MD HEMATOLOGY ORDERA BLES Performing Organization Address [facility] Co de Phone Number [facility] [place] [address] * TSH (05/08/2023 11:38 AM EDT) Thyroid Stimulating Hormone 1.27 0.27 - 4.20 mcIU/mL [facility] Comment: Reference Interval (mcIU/mL): Females: ??First Trimester: 0.23-3.88 ??Second Trimester: 0.22-3.90 ??Third Trimester: 0.44-4.66 Blood 05/08/2023 11:3 8 AM EDT 05/08/2023 11:44 AM EDT Narrative Resulting Agency Comment Spec In Lab Enrique Chua MD CHEMISTRY ORDERABLES Performing Organization Address [facility] Co de Phone Number [facility] [place] [address] * (ABNORMAL) Phosphorus (05/08/2023 11:38 AM EDT) Phosphorus 4.7(H) 2.5 - 4.5 mg/dL [facility] Blood 05/08/2023 11:3 8 AM EDT 05/08/2023 11:44 AM EDT Narrative Resulting Agency Comment Spec In Lab Enrique Chua MD CHEMISTRY ORDERABLES Performing Organization Address [facility] Co de Phone Number [facility] [place] [address] * Magnesium (05/08/2023 11:38 AM EDT) Magnesium 0.76 0.69 - 1.07 mmol/L [facility] Blood 05/08/2023 11:3 8 AM EDT 05/08/2023 11:44 AM EDT Narrative Resulting Agency Comment Spec In Lab Enrique Chua MD CHEMISTRY ORDERABLES Performing Organization Address [facility] Co de Phone Number [facility] [place] [address] * (ABNORMAL) Basic Metabolic Panel (non-fasting) (05/08/2023 11:38 AM EDT) Glucose 97 65 - 199 mg/dL [facility] Comment:Diabetes: >=200 mg/d L plus symptoms Blood Urea Nitrogen 27(H) 8 - 18 mg/dL [facility] Creatinine 1.02 0.70 - 1.20 mg/dL [facility] Sodium 139 135 - 145 mmol/L [facility] Potassium 4.2 3.5 - 5.0 mmol/L [facility] Comment: Please note: ??Patients with WBC >100,000 may have falsely elevated Potassium levels. ??For accurate Potassium quantification in these patients send serum separator tube (gold top) for subsequent determinations. ??Contact the Clinical Chemistry Laboratory if there are any questions. Chloride 105 98 - 107 mmol/L [facility] Carbon Dioxide 20(L) 22 - 31 mmol/L [facility] Anion Gap 14 5 - 15 mmol/L [facility] Calcium 9.4 8.5 - 10.5 mg/dL [facility] Est Glomerular Filtration Rate 60 >=60 mL/min/1. 73 m?? [facility] [...] Chua MD CHEMISTRY ORDERABLES Performing Organization Address [facility]/ZIP Co de Phone Number [facility] [place] [address] * ECHO COMPLETE (05/08/2023 11:02 AM EDT) EF 25 HEARTLAB SYSTEM Anatomical Region Laterality Modality Cardiac Other 05/08/2023 10:0 3 AM EDT Narrative 05/08/2023 11:51 AM EDT ? Echocardiogram Report Name: PURNIMA THACKER ?Study Date: 05/08/2023 10:03 AMBP: 92/64 mmHg ? Patient Location: [facility]^CV29^A : 1955 ? Height: 155 cm ? Account: [id number] Age: 67 yrs ? Weight: 78 kg Gender: Female ?BSA: 1.8 m2 Ordering Physician: ENRIQUE CHUA Referring Physician: MARIO ALBERTO CHIN Performed By: CHUCKIE Canchola Reason For Study: SAVR Stenosis Exam Location: [facility]. Interpretation Summary -Left ventricle is severely [...] worsening stenosis. Mitral regurgitation is similar. Procedure Complete-[id number]. Satisfactory quality. There is normal sinus rhythm. [...] Study Date: 0:03 AMBP: 92/64 mmHg Patient Location:[facility]^CV29^A : 1955 Height: 155 cm Account: [id number] Age: 67 yrs Weight: 78 kg Gender: Female BSA: 1.8 m2 Ordering Physician: ENRIQUE CHUA Referring Physician: MARIO ALBERTO CHIN Performed By: CHUCKIE Canchola Reason For Study: SAVR Stenosis Exam Location: [facility]. Interpretation Summary -Left ventricle is severely [...] suggestsworsening stenosis. Mitral regurgitation is similar. Procedure Complete-[id number]. Satisfactory quality. There is normal sinus rhythm. [...] 9:45 AM EDT) UF Heparin 0.54 IU/mL [facility] Comment: Heparin (anti-Xa) levels [...] Enrique Chua MD HEMATOLOGY ORDERABLE S 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
--- OUTSIDE RECORDS SUMMARY | 2024-05-04 14:10 | XMS_ITS | Encounter Summary ---
Author Organization [facility]ly [facility] Address [facility] [place] [address] Care Team Providers Care Ferry Captain Name Role Phone Magdalena Acosta MD Primary Care Provider [phone] Encounter Details Date Type Department Care Team [...] AM EDT Laboratory Appointment Lab at [facility] Hematology Oncology [address] [place] [address] 05/12/2024 10:00 AM EDT Office Visit Hematology [place] [address] Markel Borjas MD [facility] [address] HEMATOLOGY [place] [address] 03/01/2025 4:15 PM EDT Office Visit Dermatology at [place] [address] [facility] [place] [id number] Marek Bonilla MD [address] [facility] [place] [address] documented as of this encounter Visit Diagnoses Not on filedocumented in this encounter Care Teams Ferry Captain Relationship Specialty Start Date End Date Magdalena Acosta MD [address] [place] [address] PCP - General Family Medicine 02/05/23 documented as of this encounter
--- OUTSIDE RECORDS SUMMARY | 2024-05-04 14:10 | XMS_ITS | Encounter Summary ---
Author Organization [facility] [place] [address] Care Team Providers Care Insulation Estimator Name Role Phone Magdalena Acosta MD Primary Care Provider [phone] Encounter Details Date Type Department Care Team (Late st Contact Info) Description 05/08/2023 [place] [phone] Luis Felipe Ott MD [facility] [address] Social History Tobacco Use Types Packs/Day Years [...] Referring Provider: Nitesh Baltazar Patient Location: [facility] Presenting Symptoms per OSH: 67 year [...] diuresis with IV furosemide 20 x 1 (veijyikzeb75/47 at rheumatology appointment), SpO2 85% on RA -> 95% on 2L NC, HR 120s. Examination significant for decreased breath sounds at the bases. Pertinent Diagnostic Findings: CBC - Hgb 10.5 CMP - Cr 1.1 BNP 83640 HsTrop 1358 Lactate 1.6 D-dimer 1183, CTPE pending CXR demonstrated pulmonary vascular congestion US showed bilateral b lines Bedside echo reportedly similar to prior TTE for LV function OSH Interventions: ASA 324 Heparin gtt Plan: [place] [facility] Above recommendations/plans are based on my conversation with the referring provider. I have not personally interviewed or examined this patient. Luis Felipe Ott MD Welding Engineer Received a call from provider emergently at 715am. Mentating well and BP 87/53. HR 108 and diursingwell. They were about to start phenylephrine which I stressed was not a good option given concern for severe and increasing afterload. She is warm on exam, mentating and urinating and we do not need to amrit a BP if those things remain stable. Nico Segura, PGY-6 Welding Engineer [id number] documented in this encounter Plan of Treatment Upcoming Encounters Date Type Department Care Team (Late st Contact Info) Description 05/12/2024 9:00 AM EDT Laboratory Appointment Lab at [facility] [place]ematology Oncology [address] [place] [address] 05/12/2024 10:00 AM EDT Office Visit Hematology [place] [address] Markel Borjas MD [facility] DR [place] [address] 03/01/2025 4:15 PM EDT Office Visit Dermatology at [place] [address] [place] [address] Marek Bonilla MD [address], [place] [address] documented as of this encounter Visit Diagnoses Not on filedocumented in this encounter Care Teams Insulation Estimator Relationship Specialty Start Date End Date Magdalena Acosta MD [address] [place] [address] PCP - General Family Medicine 02/05/23 documented as of this encounter
--- OUTSIDE RECORDS SUMMARY | 2024-05-04 14:10 | XMS_ITS | Encounter Summary ---
Author Organization [facility] Address [facility] [place] [address] Care Team Providers Care Can Feeder Name Role Phone Deborah Quiroga APRN Primary Care Provider [phone] Encounter Details Date Type Department Care Team (Latest Contact Info) Description 07/03/2022 1:36 PM EST - 07/03/2022 11:59 PM EST Hospital Encounter Hematology [place] [address] Discharge Disposition: Home Social History Tobacco Use [...] experiencing pain -05/11.). 30 tablet 5 09/25/2016 meTOPROLOL tartrate (LOPRESSOR) 25 mg Tablet Take 25 mg by mouth 2 times daily. 02/05/2023 dilTIAZem CD (Cardizem CD) 180 mg Capsule, [...] 9:00 AM EDT Laboratory Appointment Lab at [facility] [place] On[place] [address] [place] [address] 05/12/2024 10:00 AM EDT Office Visit Hematology [place] [address] Markel Borjas MD [facility] [address] [place] [address] 03/01/2025 4:15 PM EDT Office Visit Dermatology at [place] [address] [place] [address] Marek Bonilla MD [address], [place] [address] documented as of this encounter Procedures Procedure [...] CHEMISTRY ORDERABL ES Performing Organization Address City/[facility]/ZIP Co de Phone Number [facility] [place] [address] * Vitamin B12 (07/03/2022 1:59 PM EST) Vitamin B12 449 232 - 1,245 pg/mL [facility] Blood Venous Draw / Unknown 07/03/2022 1:59 PM EST 07/03/2022 2:13 PM EST Narrative Resulting Agency Comment Spec In Lab Markel Borjas MD CHEMISTRY ORDERABL ES Performing Organization Address City/[facility]/ZIP Co de Phone Number [facility] [place] [address] documented in this encounter Visit Diagnoses Not on filedocumented in this encounter Care Teams Can Feeder Relationship Specialty Start Date End Date Deborah Quiroga APRN PCP - General Family Medicine 03/24/16 02/04/23 documented as of this encounter
--- OUTSIDE RECORDS SUMMARY | 2024-05-04 14:10 | XMS_ITS | Encounter Summary ---
Author Organization [facility] Address [facility] [place] [address] Care Team Providers Care Continuous Pickling Line Pickler Helper Name Role Phone Magdalena Acosta MD Primary Care Provider [phone] Encounter Details Date Type Department Care Team [...] 9:00 AM EDT Laboratory Appointment Lab at [facility] Hematology Oncology [address] [place] [address] 05/12/2024 10:00 AM EDT Office Visit Hematology [place] [address] Markel Borjas MD [facility] [address] [place] [address] 03/01/2025 4:15 PM EDT Office Visit Dermatology at [place] [address] [facility] [place] [address] Marek Bonilla MD [address] [facility], [place] [address] documented as of this encounter Visit Diagnoses Not on filedocumented in this encounter Care Teams Continuous Pickling Line Pickler Helper Relationship Specialty Start Date End Date Magdalena Acosta MD [address] [place] [address] PCP - General Family Medicine 02/05/23 documented as of this encounter
--- OUTSIDE RECORDS SUMMARY | 2024-05-04 14:10 | XMS_ITS | Encounter Summary ---
Author Organization [facility] [place] [address] Care Team Providers Care Marine Pipefitter Helper Name Role Phone Ashley Quirogan Cornelius ANURAG Primary Care Provider [phone] Encounter Details Date Type Department Care Team (Late st Contact Info) Description 11/02/2022 Orders Only Sales [place] [phone] Emily Lyons PA [facility] [place] [address] Aortic valve stenosis, etiology of cardiac valve [...] [facility] [place] On[place] [address] [place] [address] 05/12/2024 10:00 AM EDT Office Visit [place] [address] Markel Borjas MD [facility] [address] [place] [address] 03/01/2025 4:15 PM EDT Office Visit Dermatology at [place] [address] [facility] [place] [address] Marek Bonilla MD [address], [place] [address] documented as of this encounter Visit Diagnoses Diagnosis Aortic valve stenosis, etiology of cardiac valve disease unspecified documented in this encounter Care Teams Marine Pipefitter Helper Relationship Specialty Start Date End Date Deborah Quiroga, RECORDS CLERK PCP - General Family Medicine 03/24/16 02/04/23 documented as of this encounter
--- OUTSIDE RECORDS SUMMARY | 2024-05-04 14:10 | XMS_ITS | Encounter Summary ---
Author Organization [facility] Address [facility] [place] [address] Care Team Providers Care Special Forces Warrant Officer Name Role Phone Ashley Quirogazac Shields APRN Primary Care Provider [phone] Encounter Details Date Type Department Care Team [...] 9:00 AM EDT Laboratory Appointment Lab at [facility] Hematology Oncology [address] [place] [address] 05/12/2024 10:00 AM EDT Office Visit Hematology [place] [address] Markel Borjas MD [facility] [place] [address] 03/01/2025 4:15 PM EDT Office Visit Dermatology at [place] [address] [facility] [place] [address] Marek Bonilla MD [address] [facility] [place] [address] documented as of this encounter Visit Diagnoses Not on filedocumented in this encounter Care Teams Special Forces Warrant Officer Relationship Specialty Start Date End Date Deborah Quiroga APRN PCP - General Family Medicine 03/24/16 02/04/23 documented as of this encounter
--- OUTSIDE RECORDS SUMMARY | 2024-05-04 14:10 | XMS_ITS | Encounter Summary ---
Author [facility] [place] [address] Care Team Providers Care Company Laborer Name Role Phone Deborah Quiroga APRN Primary Care Provider [phone] Encounter Details Date Type Department Care Team (Late st Contact Info) Description 11/09/2022 11:30 AM EDT - 11/09/2022 12:30 PM EDT [place] [address] Nitesh Escobedo MD [facility] [place] [address] CARDIAC CATHETERIZATION Social History Tobacco Use Types [...] please contact your inpatient physician through the [facility] Smoking Tobacco Cutter Operator . Issues afterhours and on weekends will be handled by the Hospitalist staff on-call. * Attachments The following attachments cannot be sent through Care Everywhere. * Coronary Angiogram: Post-op (Paraguayan) * Right Heart Catheterization: Pulmonary Artery Catheterization: Post-op (Paraguayan) documented in this encounter Medications at Time [...] mg by mouth 2 times daily. 02/05/2023 meloxicam (Mobic) 15 mg tablet Take 15 [...] 10/03/2016 05/22/2023 documented as of this encounter Progress Notes [...] MD - 11/09/2022 11:20 AM EDT . [facility] Center Interventional Cardiology Adult Pre-Procedure H&P Update: Cardiac Catheterization Purnima Thacker [id number] 1955 Chief Complaint: BONILLA HPI: Purnima Thacker [...] Marrero MD Interventional Cardiology 11/09/22 11:43 AM [facility] Pager: [phone] documented in this encounter Plan of Treatment Upcoming Encounters Date Type Department Care Team (Late st Contact Info) Description 05/12/2024 9:00 AM EDT Laboratory Appointment Lab at [facility] Hematology Oncology [address] [place] [address] 05/12/2024 10:00 AM EDT Office Visit Hematology [place] [address] Markel Borjas MD [facility] [address] [place] [address] 03/01/2025 4:15 PM EDT Office Visit Dermatology at [place] [address] [place] [address] Marek Bonilla MD [address], [place] [address] documented as of this encounter Procedures Procedure Name Priority Date/Time Associated Diagnosis Comments CARDIAC CATHETERIZATION Routine 11/10/19 1:05 PM EDT Aortic valve stenosis, etiology of cardiac valve disease unspecified Cath Plmt Left Heart Cath & Arts W/Inj & Angio Img S&I ([id number]) 11/09/2022 11:51 AM EDT Aortic valve stenosis, etiology of cardiac valve disease unspecified EKG 12-LEAD Routine 11/09/2022 11:17 AM EDT Aortic valve stenosis, etiology of cardiac valve disease unspecified documented in this encounter Results * CARDIAC CATHETERIZATION (11/09/2022 1:05 PM EDT) Anatomical Region Laterality Modality Other Narrative 11/09/2022 2:01 PM EDT ?[facility] ? Cardiac Catheterization/Intervention Report ? Patient Name: Kirstie, Purnima M. ? Procedure Date: 11/09/2022 ? A #: [id number] ? Primary Physician: Nitesh Escobedo ? Case #: [id number] ? File Name: [id number] ? Catheterization Order Number: [id number] ? [facility] ? Final Report [place], [place] ? Patient Name: ? Purnima M. Kirstie ? ID#: ?[id number] ? : ?1955 ? Procedure Date: ? [...] was designated as ASA Class III. The [facility] clinical frailty scale ?is 4: [...] (Bezet) 457 ms MUSE SYSTEM Calculated P Durand 44 degrees MUSE SYSTEM Calculated R Durand 33 degrees MUSE SYSTEM Calculated T Durand 30 degrees MUSE SYSTEM INTERPRETATION Sinus rhythm Occasional Premature ventricular complexes Otherwise normal ECG When compared with ECG of 21-SEP-2016 12:26, Premature ventricular complexes are now Present AK interval has decreased Nonspecific T wave abnormality has replaced inverted T waves in Inferior leads I personally reviewed the tracing and edited the fellows interpretation Confirmed by fellow MD Anitha, Carissa ([id number]) on 11/09/2022 6:17:28 PM Confirmed by Elsa [...] MD) documented in this encounter Care Teams Company Laborer Relationship Specialty Start Date End Date Junaid Deborah Shields, BOX CAR WASHER PCP - General Family Medicine 03/24/16 02/04/23 documented as of this encounter
--- OUTSIDE RECORDS SUMMARY | 2024-05-04 14:10 | XMS_ITS | Encounter Summary ---
Author Organization [facility] Address [facility] [place] [address] Care Team Providers Care Clinical Coder Name Role Phone Ashley Quirogazac Shields APRN Primary Care Provider [phone] Encounter Details Date Type Department Care Team [...] at [facility] [place] Oncology [address] [place] [address] 05/12/2024 10:00 AM EDT Office Visit Hematology [place] [address] Markel Borjas MD [facility] [address] HEMATOLOGY [place] [address] 03/01/2025 4:15 PM EDT Office Visit Dermatology at [place] [address] [facility] [place] [address] Marek Bonilla MD [address] [facility] [place] [address] documented as of this encounter Visit Diagnoses Not on filedocumented in this encounter Care Teams Clinical Coder Relationship Specialty Start Date End Date Deborah Quiroga APRN PCP - General Family Medicine 03/24/16 02/04/23 documented as of this encounter
--- OUTSIDE RECORDS SUMMARY | 2024-05-04 14:10 | XMS_ITS | Encounter Summary ---
Author Organization [facility] [place] [address] Care Team Providers Care Manager Test Name Role Phone Magdalena Acosta MD Primary Care Provider [phone] Encounter Details Date Type Department Care Team (Late st Contact Info) Description 03/29/2023 Orders Only Cardiology at [address] [phone] Ranjan Delgado MD [facility] [place] [address] Severe aortic stenosis (Primary Dx) Social History [...] Lab at [facility] Hematology Oncology [address] [place] [phone] 05/12/2024 10:00 AM EDT Office Visit [place]ematology [place] [address] Markel Borjas MD [facility] [place] [address] 03/01/2025 4:15 PM EDT Office Visit Dermatology at [place] [address] [place] [address] Marek Bonilla MD [address], [place] [address] Scheduled Orders Name Type Priority Associated Diagnoses [...] documented in this encounter Care Teams Manager Test Relationship Specialty Start Date End Date Magdalena Acosta MD [address] [place] [address] PCP - General Family Medicine 02/05/23 documented as of this encounter
--- OUTSIDE RECORDS SUMMARY | 2024-05-04 14:10 | XMS_ITS | Encounter Summary ---
Author Organization [facility] Address [facility] [place] [address] Care Team Providers Care High Speed Printer Operator Name Role Phone Ashley Quirogazac Shields APRN Primary Care Provider [phone] Reason for Referral * Consultation (Routine) - Closed Specialty Diagnoses / Procedures Referred By Contac t Referred To Contact Neurology Diagnoses Neck pain Popeye Rogers [place] [address] Kyra Haas MD [facility] [address] [address] Referral ID Status Reason Start Date Expiration Date V isits Requested Visits Authorized [id number] Closed Consult, Test & Treat 06/29/2022 06/29/2023 1 1 Reason for Visit * Reason Comments Neck Pain Weak in both arms, p ain and tingling in arms and hands Encounter Details Date Type Department Care Team (Late st Contact Info) Description 06/29/2022 10:20 AM EST Office Visit [place] [address] Popeye Rogers MD [place] [address] Neck pain Social History Tobacco Use Types [...] have EMG and nerve conduction studies in [place] that showed carpal tunnel syndrome. I do not have a copy of that report. documented in this encounter Plan of Treatment Upcoming Encounters Date Type Department Care Team (Late st Contact Info) Description 05/12/2024 9:00 AM EDT Laboratory Appointment Lab at [facility] Hematology Oncology [address] [place] [address] 05/12/2024 10:00 AM EDT Office Visit [place] [address] Markel Borjas MD [facility] [address] [place] [address] 03/01/2025 4:15 PM EDT Office Visit Dermatology at [address] [place] [address] Marek Bonilla MD [address] [facility], [place] [address] Scheduled Referrals Name Type Priority Associated Diagnoses Orde r Schedule Referral to Neurology Outpatient Referral Routine Neck pain Ordered: 06/29/2022 documented as of this encounter Visit Diagnoses Diagnosis Neck pain Cervicalgia documented in this encounter Care Teams High Speed Printer Operator Relationship Specialty Start Date End Date Deborah Quiroga APRN PCP - General Family Medicine 03/24/16 02/04/23 documented as of this encounter
--- OUTSIDE RECORDS SUMMARY | 2024-05-04 14:10 | XMS_ITS | Encounter Summary ---
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 documented in this encounter Plan of Treatment Upcoming Encounters Date Type Department Care Team (Late st Contact Info) Description 05/12/2024 9:00 AM EDT Laboratory Appointment Lab at [facility] Hematology Oncology [address] [place] [address] 05/12/2024 10:00 AM EDT Office Visit Hematology [place] [address] Markel Borjas MD [facility] DR HEMATOLOGY [place] [address] 03/01/2025 4:15 PM EDT Office Visit Dermatology at [place] [address] [facility] [place] [address] Marek Bonilla MD [address], [place] [address] documented as of this encounter Visit Diagnoses Not on filedocumented in this encounter Care Teams Truck Loader Relationship Specialty Start Date End Date Magdalena Acosta MD [address] [place] [address] PCP - General Family Medicine 02/05/23 documented as of this encounter
--- OUTSIDE RECORDS SUMMARY | 2024-05-04 14:10 | XMS_ITS | Encounter Summary ---
Author Organization [facility] Address [facility] Erika lópezsyl[place] [address] Care Team Providers Care Probation Counselor Name Role Phone Deborah Quiroga APRN Primary Care Provider [phone] Encounter Details Date Type Department Care Team (Late st Contact Info) Description 01/09/2022 Refill Dermatology at [address] [address] Lupe Connor RN Social History [...] [facility] [place] Oncology [address] [place] [address] 05/12/2024 10:00 AM EDT Office Visit Hematology [place] [address] Markel Borjas MD [facility] DR HEMATOLOGY [place] [address] 03/01/2025 4:15 PM EDT Office Visit Dermatology at [address] [address] Marek Bonilla MD [address], [place] [address] documented as of this encounter Visit Diagnoses Not on filedocumented in this encounter Care Teams Probation Counselor Relationship Specialty Start Date End Date Deborah Quiroga APRN PCP - General Family Medicine 03/24/16 02/04/23 documented as of this encounter
--- OUTSIDE RECORDS SUMMARY | 2024-05-04 14:10 | XMS_ITS | Encounter Summary ---
Author Organization [facility] [place] [address] Care Team Providers Care Cut Off Worker Name Role Phone Magdalena Acosta MD Primary Care Provider [phone] Encounter Details Date Type Department Care Team (Latest Contact Info) Description 03/18/2023 2:30 PM EDT Laboratory Appointment Lab [place] [phone] Positive FRANCISCO (antinuclear antibody) Social History Tobacco [...] [facility] Hemat[facility] Oncology [address] [place] [address] 05/12/2024 10:00 AM EDT Office Visit Hematology [place] [address] Markel Borjas MD [facility] HEMAT[place] [address] 03/01/2025 4:15 PM EDT Office Visit Dermatology at [address] [address] Marek Bonilla MD 580 [facility] [place], [place] [id number] documented as of this encounter Procedures Procedure [...] (03/18/2023 2:14 PM EDT) Pathologist [facility] Neutrophil % 71.2 % [facility] Neutrophil Absolute 2.26 1.70 - 6.10 x10(3)/mc L [facility] Lymph % 18.2 % [facility] Lymphocytes Abs 0.6(L) 0.9 - 3.2 x10(3)/ L [facility] Monocyte % 9.7 % [facility] Monocyte Abs 0.3 0.3 - 0.9 x10(3)/[facility] Eos % 0.3 % [facility] Eosinophils Abs 0.0 0.0 - 0.4 x10(3)/[facility] Basophil % 0.6 % [facility] Baso Absolute 0.0 0.0 - 0.1 x10(3)/[facility] Immature Gran % 0.00 % [facility] Comment: Immature granulocytes(IG's)percentage and absolute count will include metamyelocytes, myelocytes, and promyelocytes. Blood smears from CBCs yielding IG's will be scanned manually for concordance. If this scan disagrees with the automated IG or if promyelocytes are noted, a manual differential will be performed. Immature Gran Absolute 0.00 0.00 - 0.04 x10(3)/[facility] Blood 03/18/2023 2:14 PM EDT 03/18/2023 2:24 PM EDT Narrative Resulting Agency Comment Spec In Lab Magdalena Peralta MD HEMATOLOGY ORDERABLE S [facility] [place] [address] * (ABNORMAL) Hemogram (03/18/2023 2:14 PM EDT) White Blood Cell 3.2(L) 4.0 - 9.5 x10(3)/[facility] Red Blood Cell 3.44(L) 4.00 - 5.21 x10(6)/[facility] Hemoglobin 11.1(L) 11.7 - 15.5 g/dL [facility] Hematocrit 32.9(L) 35.7 - 45.8 % [facility] Mean Cell Volume 95.6(H) 82.6 - 94.4 fL [facility] Mean Cell Hemoglobin 32.3(H) 27.1 - 32.0 pg [facility] Mean Cell Hemoglobin Concentration 33.7 31.7 - 35.0 g/dL [facility] Platelet 144(L) 145 - 357 x10(3)/mc L [facility] RDW Standard Deviation 42.6 37.0 - 46.0 fL [facility] RDW coefficient of variation 12.3 11.5 - 14.1 % [facility] Mean Platelet Volume 9.4 7.6 - 12.9 fL [facility] NRBC% auto 0.0 % [facility] NRBC Absolute 0.000 0.000 - 0.000 x10(3)/mc L [facility] Blood 03/18/2023 2:14 PM EDT 03/18/2023 2:24 PM EDT Narrative Resulting Agency Comment Spec In Lab Magdalena Peralta MD HEMATOLOGY ORDERABLE S Performing Organization Address City/[facility]/ZIP Co de Phone Number [facility] [place] [address] * (ABNORMAL) Sedimentation rate (03/18/2023 2:14 PM EDT) Sedimentation Rate Automated 68(H) 2 - 39 mm/hr [facility] Comment: Effective July 12, 2019 new capillary photometric technology has resulted in a change in reference ranges. It is recommended that each ESR result be reviewed with its own age appropriate reference range. Blood 03/18/2023 2:14 PM EDT 03/18/2023 2:24 PM EDT Narrative Resulting Agency Comment Spec In Lab Kia Viramontes DO HEMATOLOGY ORDERAB LES [facility] [place] [address] * CRP, acute inflammation (03/18/2023 2:14 PM EDT) C-Reactive Protein 3.0 <=4.9 mg/L [facility] Blood 03/18/2023 2:14 PM EDT 03/18/2023 2:24 PM EDT Narrative Resulting Agency Comment Spec In Lab Kiagiacomo Mossew DO CHEMISTRY ORDERABL ES Performing Organization Address [facility] Co de Phone Number [facility] [place] [address] * C3 Complement (03/18/2023 2:14 PM EDT) Complement C3 142 90 - 180 mg/dL [facility] Blood 03/18/2023 2:14 PM EDT 03/18/2023 2:24 PM EDT Narrative Resulting Agency Comment Spec In Lab Kia Mossew DO CHEMISTRY ORDERABL ES Performing Organization Address [facility] de Phone Number [facility] [place] [address] * C4 Complement (03/18/2023 2:14 PM EDT) Complement C4 30 10 - 40 mg/dL [facility] Blood 03/18/2023 2:14 PM EDT 03/18/2023 2:24 PM EDT Narrative Resulting Agency Comment Spec In Lab Kia Mossew DO CHEMISTRY ORDERABL ES Performing Organization Address [facility] de Phone Number [facility] [place] [address] * CK (03/18/2023 2:14 PM EDT) Creatine Kinase 38 0 - 160 unit/L [facility] Blood 03/18/2023 2:14 PM EDT 03/18/2023 2:24 PM EDT Narrative Resulting Agency Comment Spec In Lab Kia D Wander DO CHEMISTRY ORDERABL ES Performing Organization Address [facility] Co de Phone Number [facility] [place] [address] * DNA Antibody (Double-Stranded) (03/18/2023 2:14 PM EDT) dsDNA Ab <0.6 <=15.0 IU/mL [facility] Comment: <10 negative 10-15 equivocal >15 positive This dsDNA antibody result was generated using a fluoroenzyme immunoassay on the MemfoACT 250 analyzer. This quantitative test is designed to detect IgG antibodies directed against double stranded DNA in human serum. The presence of antibodies that recognize dsDNA is a highly specific marker for systemic lupus erythematosus. Please note that as of 05/26/2022 that this testing is performed by the Special Chemistry Laboratory at [facility]. This change in testing location is associated with a change is testing method and reference intervals. Please review the results of this test in association with the posted reference intervals. Blood 03/18/2023 2:14 PM EDT 03/19/2023 7:19 AM EDT Narrative Resulting Agency Comment Spec In Lab Kia Viramontes DO LAB SEND OUT ORDER JODIE [facility] [place] [address] * (ABNORMAL) FRANCISCO Ab by IFA (03/18/2023 2:14 PM EDT) [facility] FRANCISCO Ab Screen Test ? Result ?Flag ??Unit ??RefValue Antinuclear Ab, HEp-2 ?Positive 1:2560 ??@ ?<1:80 (Negative) ??Substrate, S ? ADDITIONAL INFORMATION --------- ?Method: Immunofluorescence using HEp-2 cellular substrate. ??FRANCISCO Titer: ? 1:2560 ??FRANCISCO Pattern: ? Speckled ?Test Performed by: ?[facility] ?[address] [place] [address] ?Blood Tester Fowl: Raymond Chaudhry M.D. Ph.D.; CLIA# [id number] ([id number]) [facility] Blood 03/18/2023 2:14 PM EDT 03/18/2023 3:02 PM EDT Narrative Resulting Agency Comment Spec In Lab Kia Viramontes DO CHEMISTRY ORDERABL ES [facility] [place] [address] * Comprehensive metabolic panel (non-fasting) (03/18/2023 2:14 PM EDT) Glucose 93 65 - 199 mg/dL [facility] Comment:Diabetes: >=200 mg/d L plus symptoms Blood Urea Nitrogen 18 8 - 18 mg/dL [facility] Creatinine 0.99 0.70 - 1.20 mg/dL [facility] Sodium 141 135 - 145 mmol/L [facility] Potassium 4.5 3.5 - 5.0 mmol/L [facility] Comment: Please note: ??Patients with WBC >100,000 may have falsely elevated Potassium levels. ??For accurate Potassium quantification in these patients send serum separator tube (gold top) for subsequent determinations. ??Contact the Clinical Chemistry Laboratory if there are any questions. Chloride 106 98 - 107 mmol/L [facility] Carbon Dioxide 24 22 - 31 mmol/L [facility] Anion Gap 11 5 - 15 mmol/L [facility] Calcium 10.0 8.5 - 10.5 mg/dL [facility] Protein, Total 7.3 6.1 - 8.0 g/dL [facility] Albumin 4.3 3.2 - 5.2 g/dL [facility] Aspartate Aminotransferase 26 0 - 30 unit/L [facility] Alanine Aminotransferase 11 0 - 30 unit/L [facility] Alkaline Phosphatase 91 35 - 105 unit/L [facility] Bilirubin, Total 0.4 0.2 - 1.3 mg/dL [facility] Est Glomerular Filtration Rate 62 >=60 mL/min/1. 73 m?? [facility] Comment: This patient's estimated GFR [...] Lab Kia Viramontes DO CHEMISTRY ORDERABL ES [facility] [place] [address] documented in this encounter Visit Diagnoses Diagnosis Positive FRANCISCO (antinuclear antibody) Other and unspecified nonspecific immunological findings documented in this encounter Care Teams Cut Off Worker Relationship Specialty Start Date End Date Magdalena Acosta MD [address] [place] [address] PCP - General Family Medicine 02/05/23 documented as of this encounter
--- OUTSIDE RECORDS SUMMARY | 2024-05-04 14:10 | XMS_ITS | Encounter Summary ---
[place] [address] Care Team Providers Care Mechanical Cad Drafter Name Role Phone Magdalena Acosta MD Primary Care Provider [phone] Reason for Visit * Reason Comments Annual Exam Encounter Details Date Type Department Care Team (Late st Contact Info) Description 02/05/2023 2:30 PM EDT Office Visit Dermatology at [address] [address] Marek Bonilla MD 580 [facility] [place] [address] Rosacea; Ocular rosacea; Nevus Social History Tobacco [...] cutaneous and ocular 2. Previously told by rate examiner that she had corneal tears from her [...] AM EDT Laboratory Appointment Lab at [facility] Hematology Oncology [address] [place] [address] 05/12/2024 10:00 AM EDT Office Visit Hematology [place] [address] Markel Borjas MD [facility] [address] [place] [address] 03/01/2025 4:15 PM EDT Office Visit Dermatology at [place] [address] [place] [address] Marek Bonilla MD 580 [facility] [place] [address] documented as of this encounter Visit Diagnoses Diagnosis Rosacea Ocular rosacea Rosacea Nevus Benign neoplasm of skin, site unspecified documented in this encounter Care Teams Mechanical Cad Drafter Relationship Specialty Start Date End Date Magdalena Acosta MD [address] [place] [address] PCP - General Family Medicine 02/05/23 documented as of this encounter
--- OUTSIDE RECORDS SUMMARY | 2024-05-04 14:10 | XMS_ITS | Encounter Summary ---
Author Organization [facility] Address [facility] [place] [address] Care Team Providers Care Clinical Engineering Manager Name Role Phone Ashley Quirogazac Shields APRN Primary Care Provider [phone] Encounter Details Date Type Department Care Team [...] [facility] Hematology Oncology [address] [place] [address] 05/12/2024 10:00 AM EDT Office Visit Hematology [place] [address] Markel Borjas MD [facility] DR HEMAT[place] [address] 03/01/2025 4:15 PM EDT Office Visit Dermatology at [place] [address] [facility] [place] [phone] Marek Bonilla MD 580 [facility] [place] [address] documented as of this encounter Visit Diagnoses Not on filedocumented in this encounter Care Teams Clinical Engineering Manager Relationship Specialty Start Date End Date Deborah Quiroga APRN PCP - General Family Medicine 03/24/16 02/04/23 documented as of this encounter
--- OUTSIDE RECORDS SUMMARY | 2024-05-04 14:10 | XMS_ITS | Encounter Summary ---
Author Organization [facility] Address [facility] [place] [address] Care Team Providers Care Administrative Support Clerk Name Role Phone Deborah Quiroga ANURAG Primary Care Provider [phone] Encounter Details Date Type Department Care Team (Late st Contact Info) Description 01/14/2023 Refill Dermatology at [address] [address] Lupe Connor RN Social History [...] She would like the medication called into [facility] in [facility]. Discussed with Dr. Bonilla [...] [facility] Hematology Oncology [address] [place] [address] 05/12/2024 10:00 AM EDT Office Visit [place] [address] Markel Borjas MD [facility] [address] [place] [address] 03/01/2025 4:15 PM EDT Office Visit Dermatology at [place] [address] [facility] [place] [address] Marek Bonilla MD [address] [facility] [address] [facility] [place] [address] documented as of this encounter Visit Diagnoses Not on filedocumented in this encounter Care Teams Administrative Support Clerk Relationship Specialty Start Date End Date Deborah Quiroga APRN PCP - General Family Medicine 03/24/16 02/04/23 documented as of this encounter
--- OUTSIDE RECORDS SUMMARY | 2024-05-04 14:10 | XMS_ITS | Encounter Summary ---
Author Organization [facility] Address [facility] [place] [address] Care Team Providers Care Admissions Supervisor Name Role Phone Magdalena Acosta MD Primary Care Provider [phone] Encounter Details Date Type Department Care Team [...] [facility] On[facility] [address] [place] [address] 05/12/2024 10:00 AM EDT Office Visit Hematology [place] [address] Markel Borjas MD [facility] [address] [place] [address] 03/01/2025 4:15 PM EDT Office Visit Dermatology at [place] 580 [facility] [place] [address] Marek Bonilla MD 580 [facility] [place] [place] [address] documented as of this encounter Visit Diagnoses Not on filedocumented in this encounter Care Teams Admissions Supervisor Relationship Specialty Start Date End Date Magdalena Acosta MD [address] [place] [address] PCP - General Family Medicine 02/05/23 documented as of this encounter
--- OUTSIDE RECORDS SUMMARY | 2024-05-04 14:10 | XMS_ITS | Encounter Summary ---
Author Organization [facility] Address [facility] [place] [address] Care Team Providers Care Datacap Developer Name Role Phone Junaid Deborah Shields APRN Primary Care Provider [phone] Encounter Details Date Type Department Care Team (Latest Contact Info) Description 06/22/2022 10:00 AM EST Office [place] [phone] Raymond Loredo MD [facility] [place] [address] Raynaud's phenomenon without gangrene; Positive FRANCISCO (antinuclear [...] can be done locally or here at [facility] that the current time is not particularly [...] for surgery by Dr. Rogers here at [facility]. In addition to painful dysesthesias in her [...] over radiocarpal or ulnocarpal joints. 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 SJC/TJC 0/0. Knees: Decreased flexion [...] 9:00 AM EDT Laboratory Appointment Lab at [facility] Hematology Oncology [address] [place] [address] 05/12/2024 10:00 AM EDT Office Visit Hematology [place] [address] Markel Borjas MD [facility] [address] [place] [address] 03/01/2025 4:15 PM EDT Office Visit Dermatology at [place] [address] [place] [address] Marek Bonilla MD 580 [facility] [place] [address] documented as of this encounter Visit Diagnoses Diagnosis Raynaud's phenomenon without gangrene Positive FRANCISCO (antinuclear antibody) Other and unspecified nonspecific immunological findings Primary osteoarthritis involving multiple joints Cervical disc disorder at C6-C7 level with radiculopathy documented in this encounter Care Teams Datacap Developer Relationship Specialty Start Date End Date Deborah Quiroga APRN PCP - General Family Medicine 03/24/16 02/04/23 documented as of this encounter
--- OUTSIDE RECORDS SUMMARY | 2024-05-04 14:10 | XMS_ITS | Encounter Summary ---
Author Organization [facility] Address [facility] [place] [address] Care Team Providers Care Bottom Liner Name Role Phone Magdalena Acosta MD Primary Care Provider [phone] Encounter Details Date Type Department Care Team [...] [facility] H[facility] Oncology [address] [place] [address] 05/12/2024 10:00 AM EDT Office Visit Hematology [place] [address] Markel Borjas MD [facility] [address] [place] [address] 03/01/2025 4:15 PM EDT Office Visit Dermatology at [place] 580 [facility] [place] [address] Marek Bonilla MD 580 [facility] [place] [address] documented as of this encounter Visit Diagnoses Not on filedocumented in this encounter Care Teams Bottom Liner Relationship Specialty Start Date End Date Magdalena Acosta MD [address] [place] [address] PCP - General Family Medicine 02/05/23 documented as of this encounter
--- OUTSIDE RECORDS SUMMARY | 2024-05-04 14:10 | XMS_ITS | Encounter Summary ---
[place] [address] Care Team Providers Care Field Sales Manager Name Role Phone Magdalena Acosta MD Primary Care Provider [phone] Reason for Visit * Reason Comments Skin Lesion Encounter Details Date Type Department Care Team (Late st Contact Info) Description 04/20/2023 10:00 AM EDT Office Visit Dermatology at [address] [address] Marek Bonilla MD 580 [facility] [place] [place] [address] Seborrheic keratosis Social History Tobacco Use Types [...] cutaneous and ocular 3. Previously told by wellness educator that she had corneal tears from [...] 9:00 AM EDT Laboratory Appointment Lab at [facility] Hematology Oncology [address] [place] [address] 05/12/2024 10:00 AM EDT Office Visit Hematology [place] [address] Markel Borjas MD [facility] [address] [place] [address] 03/01/2025 4:15 PM EDT Office Visit Dermatology at [address] [place] [address] Marek Bonilla MD 580 [facility] [place] [address] documented as of this encounter Visit Diagnoses Diagnosis Seborrheic keratosis Other seborrheic keratosis documented in this encounter Care Teams Field Sales Manager Relationship Specialty Start Date End Date Magdalena Acosta MD [address] [place] [address] PCP - General Family Medicine 02/05/23 documented as of this encounter
--- OUTSIDE RECORDS SUMMARY | 2024-05-04 14:10 | XMS_ITS | Encounter Summary ---
Author Organization [facility] [place] [address] Care Team Providers Care Bander Operator Name Role Phone Magdalena Acosta MD Primary Care Provider [phone] Encounter Details Date Type Department Care Team (Latest Contact Info) Description 02/05/2023 9:33 PM EDT - 02/05/2023 11:59 PM EDT [place] [address] Discharge Disposition: Home Social History Tobacco Use [...] experiencing pain 1-10/10.). 30 tablet 5 09/25/2016 cyanocobalamin, Vitamin B-12, (Vitamin B-12) 1,000 mcg [...] [facility] Hematology Oncology [address] [place] [address] 05/12/2024 10:00 AM EDT Office Visit Hematology [place] [address] Markel Borjas MD [facility] [address] [place] [address] 03/01/2025 4:15 PM EDT Office Visit Dermatology at [place] 580 [facility] [place] [address] Marek Bonilla MD [address] [facility] [address] [place] [address] documented as of this encounter Procedures Procedure Name Priority Date/Time Associated Diagnosis Comments SURGICAL PATHOLOGY REPORT Routine 02/05/2023 3:00 PM EDT documented in this encounter Results * Surgical Pathology Report (02/05/2023 3:00 PM EDT) Final Diagnosis [id number] ? Location: OPW The signing pathologist has (i) examined the relevant preparation(s) for the specimen(s) and (ii) rendered or confirmed the diagnosis(es). . ?Surgical Pathology DIAGNOSIS Left upper back, skin punch biopsy: - ??Compound dysplastic ??melanocytic nevus with moderate atypia, transected at peripheral specimen edges ?? (see discussion) Electronically signed by: ?Vanna CULP, Jesse Shields Verified: ??02/16/2023 8:04 ?? Dermatopathologist Performed at: ??-[facility] Dept. of Pathology, [place] [address] Venetian Blind Mechanic: Kunal Rubi MD, AP, ??CLIA Certificate: [id number] DISCUSSION If there is an obvious clinical [...] EDT Marek Bonilla MD PATHOLOGY/CYTOLOGY O REMI [facility] [place] [address] [facility] [place] [address] documented in this encounter Visit Diagnoses Not on filedocumented in this encounter Care Teams Bander Operator Relationship Specialty Start Date End Date Magdalena Acosta MD [address] [place] [address] PCP - General Family Medicine 02/05/23 documented as of this encounter
--- OUTSIDE RECORDS SUMMARY | 2024-05-04 14:10 | XMS_ITS | Encounter Summary ---
Author Organization [facility] Address [facility] [place] [address] Care Team Providers Care Family Mediator Name Role Phone Magdalena Acosta MD Primary Care Provider [phone] Encounter Details Date Type Department Care Team [...] AM EDT Laboratory Appointment Lab at [facility] Hematology Oncology [address] [place] [address] 05/12/2024 10:00 AM EDT Office Visit [place]ology [place] [address] Markel Borjas MD [facility] [address] HEMATOLOGY [place] [address] 03/01/2025 4:15 PM EDT Office Visit Dermatology at [place] 580 [facility] [place] [address] Marek Bonilla MD 580 [facility] [place] [address] documented as of this encounter Visit Diagnoses Not on filedocumented in this encounter Care Teams Family Mediator Relationship Specialty Start Date End Date Magdalena Acosta MD [address] [place] [address] PCP - General Family Medicine 02/05/23 documented as of this encounter
--- OUTSIDE RECORDS SUMMARY | 2024-05-04 14:10 | XMS_ITS | Encounter Summary ---
Author Organization [facility] Address [facility] [place] [address] Care Team Providers Care Drawing Kiln Supervisor Name Role Phone Magdalena Acosta MD Primary Care Provider [phone] Reason for Visit * Consultation (Routine) - Closed Specialty Diagnoses / Procedures Referred By Contac t Referred To Contact Rheumatology Diagnoses Weakness Kyra Haas MD [facility] [address] [place] [address] [facility] [place] [address] [place] [phone] Referral ID Status Reason Start Date Expiration Date V isits Requested Visits Authorized [id number] Closed Consult, Test & Treat PCP Updated and/or Approved 02/25/2023 02/25/2024 6 6 Encounter Details Date Type Department Care Team (Late st Contact Info) Description 03/18/2023 1:00 PM EDT Office [place] [address] Kia Viramontes DO [facility] [place] [address] Magdalena Peralta MD [facility] [place] [address] Positive FRANCISCO (antinuclear antibody) Social [...] 1:5120 speckled VIC negative Myositis panel with PORTFOLIO ANALYST ab 149.1 (positive) Anti U1RNP IgG 119 [...] a chair without assistance of upper extremities. Aligner strength 3+/5 bilaterally; otherwise large muscle groups [...] due to risk of retinal toxicity with [facility] Plaquenil use, which she already does. Recommendations: #mixed connective tissue disease Start hydroxychloroquine 200 mg qd Labs today: repeat FRANCISCO, dsDNA, complements, CBC, CMP, CK, ESR, CRP Follow up 1 month The patient was seen and discussed with Dr. Wander Peralta MD Rheumatology Fellow Pager: [phone] CC: Kyra Haas * Kia Viramontes DO [...] [facility] [place] On[place] [address] [place] [address] 05/12/2024 10:00 AM EDT Office Visit Hematology [place] [address] Markel Borjas MD [facility] DR HEMATOLOGY [place] [address] 03/01/2025 4:15 PM EDT Office Visit Dermatology at [place] [address] [place] [address] Marek Bonilla MD [address] [facility], [place] [address] documented as of this encounter Results * Comprehensive metabolic panel (non-fasting) (03/18/2023 2:14 PM EDT) [facility] Signature Glucose 93 65 - 199 mg/dL [facility] Comment:Diabetes: >=200 mg/d L plus symptoms Blood Urea Nitrogen 18 8 - 18 mg/dL [facility] Creatinine 0.99 0.70 - 1.20 mg/dL [facility] Sodium 141 135 - 145 mmol/L [facility] Potassium 4.5 3.5 - 5.0 mmol/L [facility] Comment: Please note: ??Patients with WBC >100,000 may have falsely elevated Potassium levels. ??For accurate Potassium quantification in these patients send serum separator tube (gold top) for subsequent determinations. ??Contact the Clinical Chemistry Laboratory if there are any questions. Chloride 106 98 - 107 mmol/L [facility] Carbon Dioxide 24 22 - 31 mmol/L [facility] Anion Gap 11 5 - 15 mmol/L [facility] Calcium 10.0 8.5 - 10.5 mg/dL [facility] Protein, Total 7.3 6.1 - 8.0 g/dL [facility] Albumin 4.3 3.2 - 5.2 g/dL [facility] Aspartate Aminotransferase 26 0 - 30 unit/L [facility] Alanine Aminotransferase 11 0 - 30 unit/L [facility] Alkaline Phosphatase 91 35 - 105 unit/L [facility] Bilirubin, Total 0.4 0.2 - 1.3 mg/dL [facility] Est Glomerular Filtration Rate 62 >=60 mL/min/1. 73 m?? [facility] Comment: This patient's estimated GFR [...] City/State/[facility] Co de Phone Number [facility] [place] [address] * (ABNORMAL) FRANCISCO Ab by IFA (03/18/2023 2:14 PM EDT) FRANCISCO Ab Screen Test ? Result ?Flag ??Unit ??RefValue Antinuclear Ab, HEp-2 ?Positive 1:2560 ??@ ?<1:80 (Negative) ??Substrate, S ? ADDITIONAL INFORMATION --------- ?Method: Immunofluorescence using HEp-2 cellular substrate. ??FRANCISCO Titer: ? 1:2560 ??FRANCISCO Pattern: ? Speckled ?Test Performed by: ?[facility] ?[address] [id number] ?Machine Tool Technician Instructor: Raymond Chaudhry M.D. Ph.D.; CLIA# [id number] ([id number]) [facility] Blood 03/18/2023 2:14 PM EDT 03/18/2023 3:02 PM EDT Narrative Resulting Agency Comment Spec In Lab Kia Viramontes DO CHEMISTRY ORDERABL ES [facility] [place] [address] * DNA Antibody (Double-Stranded) (03/18/2023 2:14 PM EDT) dsDNA Ab <0.6 <=15.0 IU/mL [facility] Comment: <10 negative 10-15 equivocal >15 positive This dsDNA antibody result was generated using a fluoroenzyme immunoassay on the Fieldoo 250 analyzer. This quantitative test is designed to detect IgG antibodies directed against double stranded DNA in human serum. The presence of antibodies that recognize dsDNA is a highly specific marker for systemic lupus erythematosus. Please note that as of 05/26/2022 that this testing is performed by the Special Chemistry Laboratory at [facility]. This change in testing location is associated with a change is testing method and reference intervals. Please review the results of this test in association with the posted reference intervals. Blood 03/18/2023 2:14 PM EDT 03/19/2023 7:19 AM EDT Narrative Resulting Agency Comment Spec In Lab Kia Viramontes DO LAB SEND OUT ORDER JODIE Performing Organization Address [facility] [address]/[facility] Co de Phone Number [facility] [place] [address] * CK (03/18/2023 2:14 PM EDT) Creatine Kinase 38 0 - 160 unit/L [facility] Blood 03/18/2023 2:14 PM EDT 03/18/2023 2:24 PM EDT Narrative Resulting Agency Comment Spec In Lab Kia Viramontes DO CHEMISTRY ORDERABL ES Performing Organization Address [facility] Co de Phone Number [facility] [place] [address] * C4 Complement (03/18/2023 2:14 PM EDT) Complement C4 30 10 - 40 mg/dL [facility] Blood 03/18/2023 2:14 PM EDT 03/18/2023 2:24 PM EDT Narrative Resulting Agency Comment Spec In Lab Kia D Wander DO CHEMISTRY ORDERABL ES Performing Organization Address [facility] Co de Phone Number [facility] [place] [address] * C3 Complement (03/18/2023 2:14 PM EDT) Complement C3 142 90 - 180 mg/dL [facility] Blood 03/18/2023 2:14 PM EDT 03/18/2023 2:24 PM EDT Narrative Resulting Agency Comment Spec In Lab Kia Viramontes DO CHEMISTRY ORDERABL ES Performing Organization Address [facility] [address]/[facility] Co de Phone Number [facility] [place] [address] * CRP, acute inflammation (03/18/2023 2:14 PM EDT) C-Reactive Protein 3.0 <=4.9 mg/L [facility] Blood 03/18/2023 2:14 PM EDT 03/18/2023 2:24 PM EDT Narrative Resulting Agency Comment Spec In Lab Kia Viramontes DO CHEMISTRY ORDERABL ES Performing Organization Address [facility] Co de Phone Number [facility] [place] [address] * (ABNORMAL) Sedimentation rate (03/18/2023 2:14 PM EDT) Sedimentation Rate Automated 68(H) 2 - 39 mm/hr [facility] Comment: Effective July 12, 2019 new capillary photometric technology has resulted in a change in reference ranges. It is recommended that each ESR result be reviewed with its own age appropriate reference range. Blood 03/18/2023 2:14 PM EDT 03/18/2023 2:24 PM EDT Narrative Resulting Agency Comment Spec In Lab Kia Viramontes DO HEMATOLOGY ORDERAB LES Performing Organization Address [facility] [address]/[facility] Co de Phone Number [facility] [place] [address] documented in this encounter Visit Diagnoses Diagnosis Positive FRANCISCO (antinuclear antibody) Other and unspecified nonspecific immunological findings documented in this encounter Care Teams Drawing Kiln Supervisor Relationship Specialty Start Date End Date Magdalena Acosta MD [address] [place] [address] PCP - General Family Medicine 02/05/23 documented as of this encounter
--- OUTSIDE RECORDS SUMMARY | 2024-05-04 14:10 | XMS_ITS | Encounter Summary ---
Author Organization [facility] [place] [address] Care Team Providers Care Senior Compensation Consultant Name Role Phone Deborah Quiroga APRN Primary Care Provider [phone] Reason for Referral * Consultation (Routine) - Closed Specialty Diagnoses / Procedures Referred By Crispin maxwell Referred To Contact Neurology Diagnoses Polyneuropathy Deborah Quiroga APRN [address] [facility] [address] [place] [address] [facility] Neurology [address] [place] [phone] Referral ID Status Reason Start Date Expiration Date V isits Requested Visits Authorized [id number] Closed Consult, Test & Treat 10/29/2022 10/29/2023 1 1 Encounter Details Date Type Department Care Team (Latest Contact Info) Description 10/29/2022 Transcribe Orders eDH Incoming Referrals [phone] Deborah Quiroga APRN [address] [facility] [address] [place] [address] Polyneuropathy (Primary Dx) Social History [...] 9:00 AM EDT Laboratory Appointment Lab at [facility] Hematology Oncology [address] [place] [address] 05/12/2024 10:00 AM EDT Office Visit Hematology [place] [address] Markel Borjas MD [facility] [address] [place] [address] 03/01/2025 4:15 PM EDT Office Visit Dermatology at [place] [address] [place] [address] Marek Bonilla MD [address] [place] [address] Scheduled Referrals Name Type Priority Associated Diagnoses Orde r Schedule Referral to Neurology Outpatient Referral Routine Polyneuropathy Ordered: 10/29/2022 documented as of this encounter Visit Diagnoses Diagnosis Polyneuropathy- Primary Unspecified hereditary and idiopathic peripheral neuropathy documented in this encounter Care Teams Senior Compensation Consultant Relationship Specialty Start Date End Date Deborah Quiroga APRN PCP - General Family Medicine 03/24/16 02/04/23 documented as of this encounter
--- OUTSIDE RECORDS SUMMARY | 2024-05-04 14:10 | XMS_ITS | Encounter Summary ---
Author Organization [facility] [place] [address] Care Team Providers Care Retail Pharmacy Technician Name Role Phone Deborah Quiroga APRN Primary Care Provider [phone] Encounter Details Date Type Department Care Team (Late st Contact Info) Description 06/17/2022 Ancillary Procedure Radiology Library at [facility] [place] [address] Deborah Quiroga APRN [address] [place] [phone] Social History Tobacco Use Types Packs/Day [...] [facility] Hematology Oncology [address] [place] [address] 05/12/2024 10:00 AM EDT Office Visit [place]ematology [place] [address] Markel Borjas MD [facility] HEMATOLOGY [place] [address] 03/01/2025 4:15 PM EDT Office Visit Dermatology at [place] [address] [place] [address] Marek Bonilla MD [address] [place] [address] documented as of this encounter Procedures Procedure Name Priority Date/Time Associated Diagnosis Comments FILM LIBRARY STORAGE ONLY MR SPINE Routine 06/17/2022 12:00 AM EST documented in this encounter Results * Film Library- Storage Only MR Spine (06/17/2022 12:00 AM EST) Narrative [facility] - 06/18/2022 11:00 AM EST This exam is auto-finalizing. It's purpose is for storage only. Deborah Quiroga APRN IMG FILM LIBRARY OR DERABLES Performing Organization Address City/State/[facility] de Phone Number [place], [place] documented in this encounter Visit Diagnoses Not on filedocumented in this encounter Care Teams Retail Pharmacy Technician Relationship Specialty Start Date End Date Deborah Quiroga APRN PCP - General Family Medicine 03/24/16 02/04/23 documented as of this encounter
--- OUTSIDE RECORDS SUMMARY | 2024-05-04 14:10 | XMS_ITS | Encounter Summary ---
[place] [address] Care Team Providers Care Radio Division Officer Name Role Phone Magdalena Acosta MD Primary Care Provider [phone] Reason for Visit * Reason Comments Suture / Staple Removal Encounter Details Date Type Department Care Team (Late st Contact Info) Description 02/16/2023 10:00 AM EDT Office Visit Dermatology at [place] [address] [place] [address] Marek Bonilla MD [address] [facility] DERMATOLOGY [place], [place] [phone] Visit for suture removal Social History Tobacco [...] Return to clinic as needed. C: Magdalena cAosta MD documented in this encounter Plan of Treatment Upcoming Encounters Date Type Department Care Team (Late st Contact Info) Description 05/12/2024 9:00 AM EDT Laboratory Appointment Lab at [facility] [place] [address] [place] [address] 05/12/2024 10:00 AM EDT Office Visit H[place] [address] Markel Borjas MD [facility] [address] HEMATOLOGY [place] [address] 03/01/2025 4:15 PM EDT Office Visit Dermatology at [place] [address] [place] [address] Marek Bonlila MD [address] [place] [address] documented as of this encounter Visit Diagnoses Diagnosis Visit for suture removal Encounter for removal of sutures documented in this encounter Care Teams Radio Division Officer Relationship Specialty Start Date End Date Magdalena Acosta MD [address] [place] [address] PCP - General Family Medicine 02/05/23 documented as of this encounter
--- OUTSIDE RECORDS SUMMARY | 2024-05-04 14:10 | XMS_ITS | Encounter Summary ---
Author Organization [facility] Address [facility] [place] [address] Care Team Providers Care Shredder/Granulator Operator Name Role Phone Magdalena Acosta MD Primary Care Provider [phone] Encounter Details Date Type Department Care Team [...] [facility] Hematology Oncology [address] [place] [address] 05/12/2024 10:00 AM EDT Office Visit Hematology [place] [address] Markel Borjas MD [facility] [address] HEMATOLOGY [place] [address] 03/01/2025 4:15 PM EDT Office Visit Dermatology at [place] [address] [facility] [place] [address] Marek Bonilla MD [address] [facility], [place] [address] documented as of this encounter Visit Diagnoses Not on filedocumented in this encounter Care Teams Shredder/Granulator Operator Relationship Specialty Start Date End Date Magdalena Acosta MD [address] [place] [address] PCP - General Family Medicine 02/05/23 documented as of this encounter
--- OUTSIDE RECORDS SUMMARY | 2024-05-04 14:10 | XMS_ITS | Encounter Summary ---
Author Organization [facility] [address] Care Team Providers Care Blow Off Worker Name Role Phone Magdalena Acosta MD Primary Care Provider [phone] Reason for Referral * Consultation (Routine) - Closed Specialty Diagnoses / Procedures Referred By Contac t Referred To Contact Rheumatology Diagnoses Weakness Kyra Haas MD [facility] [address] [place] [address] [facility] Rheumatology [address] [place] [phone] Referral ID Status Reason Start Date Expiration Date V isits Requested Visits Authorized [id number] Closed Consult, Test & Treat PCP Updated and/or Approved 02/25/2023 02/25/2024 6 6 Encounter Details Date Type Department Care Team (Late st Contact Info) Description 02/25/2023 Transcribe Orders eDH Incoming Referrals [phone] Magdalena Acosta MD [address] [place] [address] Weakness Social History Tobacco Use [...] [facility] [place] On[place] [address] [place] [address] 05/12/2024 10:00 AM EDT Office Visit Hematology [place] [address] Markel Borjas MD [facility] [address] [place] [address] 03/01/2025 4:15 PM EDT Office Visit Dermatology at [place] [address] [place] [address] Marek Bonilla MD [address] [place] [address] Scheduled Referrals Name Type Priority Associated Diagnoses Order Schedule Referral to Rheumatology Outpatient Referral Routine Weakness Ordered: 02/25/2023 documented as of this encounter Visit Diagnoses Diagnosis Weakness Other malaise and fatigue documented in this encounter Care Teams Blow Off Worker Relationship Specialty Start Date End Date Magdalena Acosta MD [address] [place] [address] PCP - General Family Medicine 02/05/23 documented as of this encounter
--- OUTSIDE RECORDS SUMMARY | 2024-05-04 14:10 | XMS_ITS | Encounter Summary ---
Author Organization [facility] Address [facility] [place] [address] Care Team Providers Care Real Estate Recruiter Name Role Phone Magdalena Acosta MD Primary Care Provider Encounter Details Date Type Department Care Team (Late st Contact Info) Description 04/27/2023 3:00 PM EDT Office [place] [address] Magdalena Peralta MD [facility] [place] [address] Mixed connective tissue disease Social History Tobacco [...] 1:5120 speckled; VIC negative; Myositis panel with CONSUMER LOAN MANAGER ab 149.1 (positive); Anti U1RNP IgG [...] [facility] Hematology Oncology [address] [place] [address] 05/12/2024 10:00 AM EDT Office Visit Hematology [place] [address] Markel Borjas MD [facility] [address] [place] [address] 03/01/2025 4:15 PM EDT Office Visit Dermatology at [place] [address] [place] [address] Marek Bonilla MD [address] [place] [address] documented as of this encounter Visit Diagnoses Diagnosis Mixed connective tissue disease Other specified diffuse disease of connective tissue documented in this encounter Care Teams Real Estate Recruiter Relationship Specialty Start Date End Date Magdalena Acosta MD [address] [place] [address] PCP - General Family Medicine 02/05/23 documented as of this encounter
--- OUTSIDE RECORDS SUMMARY | 2024-05-04 14:10 | XMS_ITS | Encounter Summary ---
Author Organization [facility] [place] [address] Care Team Providers Care Credit Risk Modeler Name Role Phone Magdalena Acosta MD Primary Care Provider [phone] Encounter Details Date Type Department Care Team (Late st Contact Info) Description 02/17/2023 2:00 PM EDT Office Visit [place] [phone] Alirio Esparza MD Aortic valve stenosis, etiology [...] [facility] Hematology Oncology [address] [place] [address] 05/12/2024 10:00 AM EDT Office Visit Hematology [place] [address] Markel Borjas MD [facility] [address] [place] [address] 03/01/2025 4:15 PM EDT Office Visit Dermatology at [place] [address] [place] [address] Marek Bonilla MD [address] [facility] [place] [address] documented as of this encounter Visit Diagnoses Diagnosis Aortic valve stenosis, etiology of cardiac valve disease unspecified documented in this encounter Care Teams Credit Risk Modeler Relationship Specialty Start Date End Date Magdalena Acosta MD [address] [place] [address] PCP - General Family Medicine 02/05/23 documented as of this encounter
--- OUTSIDE RECORDS SUMMARY | 2024-05-04 14:10 | XMS_ITS | Encounter Summary ---
Author Organization [facility] Address [facility] [place] [address] Care Team Providers Care Evp Chief Exploration Officer Name Role Phone Deborah Quiroga APRN Primary Care Provider [phone] Reason for Visit * Reason Comments Follow-up Encounter Details Date Type Department Care Team (Late st Contact Info) Description 07/03/2022 1:30 PM EST Office Visit Hematology [place] [address] Markel Borjas MD [facility] [address] HEMATOLOGY [place] [address] Consuelo Sommer APRN [facility] [address] HEMATOLOGY [place] [address] Chronic idiopathic neutropenia; Dysuria Social History Tobacco [...] TOUCH PREP, CLOT SECTION, CORE ??BIOPSY); [OSR# [id number], COLLECTED 06/23/2016, 19 SLIDES]: ?1. 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 Extremities: No edema. Labs: Hgb= 11.7 Fvnt=475 ANC= 2.5 Imaging As above - reviewed [...] 9:00 AM EDT Laboratory Appointment Lab at [facility] Hematology Oncology [address] [place] [address] 05/12/2024 10:00 AM EDT Office Visit [place] [address] Markel Borjas MD [facility] [address] HEMATOLOGY [place] [address] 03/01/2025 4:15 PM EDT Office Visit Dermatology at [place] [address] [facility] [place] [phone] Marek Bonilla MD [address] [facility] [place] [address] documented as of this encounter Procedures Procedure [...] ORDERABLES Performing Organization Address City/[facility]/ZIP Co de Phone Number [facility] [place] [address] * (ABNORMAL) Urinalysis Microscopic Exam (07/03/2022 2:00 [...] ORDERABLES Performing Organization Address City/[facility]/ZIP Co de Phone Number [facility] [place] [address] * (ABNORMAL) Urinalysis with reflex Culture (07/03/2022 [...] LABORATORY Leukocytes, Urine Dipstick Small(A) Negative [facility] LABORATORY Appearance, Urine Dipstick Clear Clear [facility] Specific [place] Urine Automated 1.022 1.005 - 1.030 [facility] Color, Urine Dipstick Yellow Yellow [facility] Reflex to Culture Yes [facility] Clean Catch Urine 07/03/2022 2:00 PM EST 07/03/2022 2:29 PM EST Narrative Resulting Agency Comment Spec In Lab Markel Borjas MD URINE ORDERABLES [facility] [place] [address] * (ABNORMAL) Comprehensive metabolic panel (non-fasting) (07/03/2022 [...] MD CHEMISTRY ORDERABL ES [facility] [place] [address] documented in this encounter Visit Diagnoses Diagnosis Chronic idiopathic neutropenia Other neutropenia Dysuria documented in this encounter Care Teams Evp Chief Exploration Officer Relationship Specialty Start Date End Date Deborah Quiroga APRN PCP - General Family Medicine 03/24/16 02/04/23 documented as of this encounter
--- OUTSIDE RECORDS SUMMARY | 2024-05-04 14:10 | XMS_ITS | Encounter Summary ---
Author Organization [facility] [place] [address] Care Team Providers Care Billing Machine Operator Name Role Phone Junaid Deborah Shields APRN Primary Care Provider [phone] Encounter Details Date Type Department Care Team (Latest Contact Info) Description 11/09/2022 10:37 AM EDT - 11/09/2022 4:53 PM EDT Hospital [place] [address] Nitesh Escobedo MD [facility] [place] [address] Aortic valve stenosis, etiology of cardiac valve [...] 2:30 PM Marek Bonilla MD [facility] New Medications to be Picked Up None For questions regarding this document or issues relating to this hospitalization on the Medical Service, please contact your inpatient physician through the [facility] Legal Receptionist . Issues afterhours and on weekends will be handled by the Hospitalist staff on-call. * Attachments The following attachments cannot be sent through Care Everywhere. * Coronary Angiogram: Post-op (Central African) * Right Heart Catheterization: Pulmonary Artery Catheterization: Post-op (Central African) documented in this encounter Medications at Time [...] - 11/09/2022 11:20 AM EDT . [facility] Heart & Vascular Center Interventional Cardiology Adult Pre-Procedure H&P Update: Cardiac Catheterization Purnima Thacker [id number] 1955 Chief Complaint: BONILLA HPI: Purnima Thacker [...] MD Interventional Cardiology 11/09/22 11:43 AM [facility] Pager: [phone] documented in this encounter Plan of Treatment Upcoming Encounters Date Type Department Care Team (Late st Contact Info) Description 05/12/2024 9:00 AM EDT Laboratory Appointment Lab at [facility] Hematology Oncology [address] [place], [place] [address] 05/12/2024 10:00 AM EDT Office Visit Hematology [place] [address] Markel Borjas MD [facility] [address] [place] [address] 03/01/2025 4:15 PM EDT Office Visit Dermatology at [place] [address] [place] [address] Marek Bonilla MD [address], [place] [address] documented as of this encounter Procedures Procedure Name Priority Date/Time Associated Diagnosis Comments CARDIAC CATHETERIZATION Routine 11/10/19 23 1:05 PM EDT Aortic valve stenosis, etiology of cardiac valve disease unspecified Cath Plmt Left Heart Cath & Arts W/Inj & Angio Img S&I ([id number]) 11/09/2022 11:51 AM EDT Aortic valve stenosis, etiology of cardiac valve disease unspecified EKG 12-LEAD Routine 11/09/2022 11:17 AM EDT Aortic valve stenosis, etiology of cardiac valve disease unspecified documented in this encounter Results * CARDIAC CATHETERIZATION (11/09/2022 1:05 PM EDT) Anatomical Region Laterality Modality Other Narrative 11/09/2022 2:01 PM EDT ?[facility] ? Cardiac Catheterization/Intervention Report ? Patient Name: Kirstie, Purnima M. ? Procedure Date: 11/09/2022 ? A #: [id number] ? Primary Physician: Nitesh Escobedo ? Case #: [id number] ? File Name: [id number] ? Catheterization Order Number: [id number] ? [facility] ? Final Report [place], [place] ? Patient Name: ? Purnima M. Kirstie ? ID#: ?[id number] ? : ?1955 ? Procedure Date: ? November 09, 2022 ? Case #: ? [id number] ? Room: ? 1 ? Case Physician: [...] (Bezet) 457 ms MUSE SYSTEM Calculated P [place] 44 degrees MUSE SYSTEM Calculated R [place] 33 degrees MUSE SYSTEM Calculated T [place] 30 degrees MUSE SYSTEM INTERPRETATION Sinus rhythm Occasional Premature ventricular complexes Otherwise normal ECG When compared with ECG of 21-SEP-2016 12:26, Premature ventricular complexes are now Present W[place] interval has decreased Nonspecific T wave abnormality has replaced inverted T waves in Inferior leads I personally reviewed the tracing and edited the fellows interpretation Confirmed by fellow MD Anitha, Carissa ([id number]) on 11/09/2022 6:17:28 PM Confirmed by Elsa [...] MD) documented in this encounter Care Teams Billing Machine Operator Relationship Specialty Start Date End Date Deborah Quiroga, LEAD FRONT END DEVELOPER PCP - General Family Medicine 03/24/16 02/04/23 documented as of this encounter
--- OUTSIDE RECORDS SUMMARY | 2024-05-04 14:10 | XMS_ITS | Encounter Summary ---
Author Organization [facility] Address [facility] Erika [facility] [place] [place] [address] Care Team Providers Care Vacuum Cleaner Assembler Name Role Phone Deborah Quiroga APRN Primary Care Provider [phone] Reason for Visit * Consultation (Routine) - Closed Specialty Diagnoses / Procedures Referred By Contkrystle t Referred To Contact Rheumatology Diagnoses Positive FRANCISCO (antinuclear antibody) Arthralgia, unspecified joint Sandy Wu APRN [address] [place] [address] [facility] [address] [place] [address] Referral ID Status Reason Start Date Expiration Date V isits Requested Visits Authorized [id number] Closed Consult, Test & Treat PCP Updated and/or Approved 01/01/2022 01/01/2023 6 6 Encounter Details Date Type Department Care Team (Latest Contact Info) Description 01/20/2022 10:00 AM EDT Office [place] [address] Raymond Loredo MD [facility] [place] [address] Rosacea; Raynaud's phenomenon without gangrene; [...] air movement without wheezes Cor: RR 2/6 RSUTY Back: No tenderness to punch, normal SLR Ext: Extremities warm w// normal pulses Musculoskeletal: Trigger points not present. Shoulders: FROM, no AC/subacromial tenderness. Elbows: Full motion, no joint or epicondylar swelling or tenderness. Wrists: Full motion, no swelling, no warmth, no tenderness over radiocarpal or ulnocarpal joints. Hands: Normal employee relations administrator and claw. SJC/TJC 0/0. Hips: Full motion, [...] [facility] [place] On[place] [address] [place] [address] 05/12/2024 10:00 AM EDT Office Visit [place] [address] Markel Borjas MD [facility] [place] [address] 03/01/2025 4:15 PM EDT Office Visit Dermatology at [place] [address] [place] [address] Marek Bonilla MD [address], [place] [address] Scheduled Referrals Name Type Priority Associated Diagnoses [...] syndrome documented in this encounter Care Teams Vacuum Cleaner Assembler Relationship Specialty Start Date End Date Juniad, Deborah E, SANDING MACHINE TENDER AUTOMATIC PCP - General Family Medicine 03/24/16 02/04/23 documented as of this encounter
--- OUTSIDE RECORDS SUMMARY | 2024-05-04 14:10 | XMS_ITS | Encounter Summary ---
Author Organization [facility] [place] [address] Care Team Providers Care Head Of Business Development Name Role Phone Deborah Quiroga APRN Primary Care Provider [phone] Encounter Details Date Type Department Care Team (Late st Contact Info) Description 06/08/2022 Ancillary Procedure Radiology [place] [address] Deborah Quiroga APRN [address] [place] [phone] Social History Tobacco Use Types Packs/Day [...] [facility] Hematology Oncology [address] [place] [address] 05/12/2024 10:00 AM EDT Office Visit Hematology [place] [phone] Markel Borjas MD [facility] HEMATOLOGY [place] [address] 03/01/2025 4:15 PM EDT Office Visit Dermatology at [place] [address] [place] [phone] Marek Bonilla MD [address], [address] [place] [address] documented as of this encounter Procedures Procedure Name Priority Date/Time Associated Diagnosis Comments FILM LIBRARY STORAGE ONLY DX SPINE Routine 06/08/2022 12:00 AM EST documented in this encounter Results * Film Library- Storage Only DX Spine (06/08/2022 12:00 AM EST) Narrative [facility] - 06/18/2022 10:57 AM EST This exam is auto-finalizing. It's purpose is for storage only. Deborah Quiroga APRN IMG FILM LIBRARY OR DERABLES Performing Organization Address City/State/[facility] de Phone Number [place], [place] documented in this encounter Visit Diagnoses Not on filedocumented in this encounter Care Teams Head Of Business Development Relationship Specialty Start Date End Date Deborah Quiroga APRN PCP - General Family Medicine 03/24/16 02/04/23 documented as of this encounter
--- OUTSIDE RECORDS SUMMARY | 2024-05-04 14:10 | XMS_ITS | Encounter Summary ---
Author Organization [facility] Address [facility] [place] [address] Care Team Providers Care Fire Warden Name Role Phone Deborah Quiroga APRN Primary Care Provider [phone] Encounter Details Date Type Department Care Team (Latest Contact Info) Description 07/03/2022 12:28 PM EST - 07/03/2022 1:35 PM EST Hospital Encounter Hematology [place] [address] Chronic idiopathic neutropenia Discharge Disposition: Home Social [...] [facility] Hematology Oncology [address] [place] [address] 05/12/2024 10:00 AM EDT Office Visit Hematology [place] [address] Markel Borjas MD [facility] [address] [place] [address] 03/01/2025 4:15 PM EDT Office Visit Dermatology at [place] [address] [place] [phone] Marek Bonilla MD [address], [place] [address] documented as of this encounter Procedures Procedure [...] 12:40 PM EST) Neutrophil % 72.9 % [facility] Neutrophil Absolute 2.61 1.70 - 6.10 x10(3)/mc L [facility] Lymph % 18.4 % [facility] Lymphocytes Abs 0.7(L) 0.9 - 3.2 x10(3)/mc L [facility] Monocyte % 8.4 % [facility] Monocyte Abs 0.3 0.3 - 0.9 x10(3)/mc L [facility] Eos % 0.0 % [facility] Eosinophils Abs 0.0 0.0 - 0.4 x10(3)/mc L [facility] Basophil % 0.3 % [facility] Baso Absolute 0.0 0.0 - 0.1 x10(3)/mc L [facility] Immature Gran % 0.00 % [facility] Comment: Immature granulocytes(IG's)percentage and absolute count will include metamyelocytes, myelocytes, and promyelocytes. Blood smears from CBCs yielding IG's will be scanned manually for concordance. If this scan disagrees with the automated IG or if promyelocytes are noted, a manual differential will be performed. Immature Gran Absolute 0.00 0.00 - 0.04 x10(3)/mc L [facility] Blood 07/03/2022 12:4 0 PM EST 07/03/2022 1:03 PM EST Narrative Resulting Agency Comment Spec In Lab Markel Borjas MD HEMATOLOGY ORDERAB LES [facility] [place] [address] * (ABNORMAL) Hemogram (07/03/2022 12:40 PM EST) White Blood Cell 3.6(L) 4.0 - 9.5 x10(3)/ L [facility] Red Blood Cell 3.61(L) 4.00 [...] 12.9 fL [facility] NRBC% auto 0.0 % [facility] NRBC Absolute 0.000 0.000 - 0.000 x10(3)/ L [facility] Blood 07/03/2022 12:4 0 PM EST 07/03/2022 1:03 PM EST Narrative Resulting Agency Comment Spec In Lab Markel Borjas MD HEMATOLOGY ORDERAB LES [facility] [place] [address] * (ABNORMAL) Comprehensive metabolic panel (non-fasting) (07/03/2022 [...] MD CHEMISTRY ORDERABL ES [facility] [place] [address] documented in this encounter Visit Diagnoses Diagnosis Chronic idiopathic neutropenia Other neutropenia documented in this encounter Care Teams Fire Warden Relationship Specialty Start Date End Date Deborah Quiroga APRN PCP - General Family Medicine 03/24/16 02/04/23 documented as of this encounter
--- OUTSIDE RECORDS SUMMARY | 2024-05-04 14:11 | XMS_ITS | Encounter Summary ---
Author Organization [facility] Address [facility] [place] [address] Care Team Providers Care Clerk Carrier Name Role Phone Deborah Quiroga APRN Primary Care Provider [phone] Encounter Details Date Type Department Care Team (Late st Contact Info) Description 03/01/2020 11:30 AM EDT Office Visit Hematology [place] [phone] Patrick Borjas MD [facility] [address] [place] [address] Neutropenia, unspecified type Social History Tobacco Use [...] 03/01/2020 11:30 AM EDT Hematology Outpatient Clinic [facility] Hematology Outpatient Consult Note CC: [...] TOUCH PREP, CLOT SECTION, CORE ??BIOPSY); [OSR# [id number], COLLECTED 06/23/2016, 19 SLIDES]: ?1. 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 Extremities: No edema. Labs: Hgb= 12.4 Rnly=058 ANC= 2.5 Imaging As above - reviewed [...] [facility] [address] [place] [address] 05/12/2024 10:00 AM EDT Office Visit [place]ematology [place] [address] Patrick Borjas MD [facility] [address] [place] [address] 03/01/2025 4:15 PM EDT Office Visit Dermatology at [place] [address] [place] [phone] Marke oBnilla MD [address] [facility], [place] [address] documented as of this encounter Visit Diagnoses Diagnosis Neutropenia, unspecified type documented in this encounter Care Teams Clerk Carrier Relationship Specialty Start Date End Date Deborah Quiroga APRN PCP - General Family Medicine 03/24/16 02/04/23 documented as of this encounter
--- OUTSIDE RECORDS SUMMARY | 2024-05-04 14:11 | XMS_ITS | Encounter Summary ---
Author Organization [facility] [place] [address] Care Team Providers Care Lambskin Trimmer Name Role Phone Deborah Quiroga APRN Primary Care Provider [phone] Encounter Details Date Type Department Care Team (Late st Contact Info) Description 06/05/2021 Interpretation Only [address] [address] Deborah Quiroga APRN [address] [phone] Social History Tobacco Use Types Packs/Day Years [...] 9:00 AM EDT Laboratory Appointment Lab at [facility] Hematology Oncology [address] [place] [address] 05/12/2024 10:00 AM EDT Office Visit [place] [address] Markel Borjas MD [facility] [address] [place] [address] 03/01/2025 4:15 PM EDT Office Visit Dermatology at [place] [address] [place] [phone] Marek Bonilla MD [address], [place] [address] documented as of this encounter Procedures Procedure Name Priority Date/Time Associated Diagnosis Comments MAMMO SCREENING CAD AND CATRACHITO BILATERAL Routine 06/05/2021 11:42 AM EDT documented in this encounter Results * Mammo Screening Cad and Catrachito Bilateral (06/05/2021 11:42 AM EDT) PT CLASS O DH RAD ADMITDTTM DH RAD PT DH RAD INFO [id number]^EVERET T^DEBORAH^E DH RAD EXAM DESC MADDSCTO^BREAST SCREEN [...] signed by: Rocael Villatoro MD, [facility] ([phone]), at 06/05/2021 1:27 PM Narrative 06/05/2021 1:27 [...] breasts are almost entirely fatty. Procedure Note oRcael Villatoro MD - 06/05/2021 EXAMINATION: BREAST SCREEN [...] signed by: Rocael Villatoro MD, [facility]([phone]), at 06/05/2021 1:27 PM Deborah Quiroga APRN IMG MAMMO ORDERABLE S documented in this encounter Visit Diagnoses Not on filedocumented in this encounter Care Teams Lambskin Trimmer Relationship Specialty Start Date End Date Deborah Quiroga APRN PCP - General Family Medicine 03/24/16 02/04/23 documented as of this encounter
--- OUTSIDE RECORDS SUMMARY | 2024-05-04 14:11 | XMS_ITS | Encounter Summary ---
Author Organization [facility] [place] [address] Care Team Providers Care Hydrogen Plant Operations Manager Name Role Phone Deborah Quiroga APRN Primary Care Provider [phone] Encounter Details Date Type Department Care Team (Late st Contact Info) Description 06/05/2021 Interpretation Only [address] [address] Deborah Quiroga APRN [address] [phone] Social History Tobacco Use Types Packs/Day Years [...] [facility] Hematology Oncology [address] [place] [address] 05/12/2024 10:00 AM EDT Office Visit Hematology [place] [address] Markel Borjas MD [facility] [address] [place] [address] 03/01/2025 4:15 PM EDT Office Visit Dermatology at [place] [address] [place] [phone] Marek Bonilla MD [address], [place] [address] documented as of this encounter Procedures Procedure Name Priority Date/Time Associated Diagnosis Comments DXA CENTRAL SPINE, HIP, AND/OR WHOLE BODY (GENERIC) Routine 06/05/2021 11:58 AM EDT documented in this encounter Results * DXA Central Spine, Hip, and/or Whole Body (Generic) (06/05/2021 11:58 AM EDT) PT CLASS O RAD ADMITDTTM RAD PT RAD INFO [id number]^E VERETT^DEBORAH ^E RAD EXAM DESC XDXAC^DEXA SCAN AXIAL^RIS RAD Anatomical Region Laterality Modality C-spine, Hip N/A Radiographic [place] ging Impressions 06/05/2021 12:00 PM EDT Normal. FRAX ten-year fracture risk: Major osteoporotic fracture: 6.3%. Hip fracture: 0.3%. Thank you for letting us participate in the care of this patient. ??If you are a health care provider and have any questions regarding this report, please contact the number below. ??For patients who have questions please contact the health director career that requested your imaging first. ? Electronically signed by: Rocael Villatoro MD, [facility] ([phone]), at 06/05/2021 12:00 PM Narrative 06/05/2021 12:00 [...] who have questions please contactthe health director career that requested your imaging first. Electronically signed by: Rocael Villatoro MD, [facility]([phone]), at 06/05/2021 12:00 PM Deborah LLAMAS DEXA ORDERABLES documented in this encounter Visit Diagnoses Not on filedocumented in this encounter Care Teams Hydrogen Plant Operations Manager Relationship Specialty Start Date End Date Deborah Quiroga APRN PCP - General Family Medicine 03/24/16 02/04/23 documented as of this encounter
--- OUTSIDE RECORDS SUMMARY | 2024-05-04 14:11 | XMS_ITS | Encounter Summary ---
Author Organization [facility] Address [facility] [place] [address] Care Team Providers Care Child Care Coordinator Name Role Phone Deborah Quiroga ANURAG Primary Care Provider [phone] Encounter Details Date Type Department Care Team (Late st Contact Info) Description 06/18/2017 External Results Hematology [place] [phone] Alexandrea Greenwood RN Neutropenia, unspecified type Social [...] [facility] [place] Oncology [address] [place] [address] 05/12/2024 10:00 AM EDT Office Visit Hematology [place] [address] Markel Borjas MD [facility] [place] [address] 03/01/2025 4:15 PM EDT Office Visit Dermatology at [address] [address] Marek Bonilla MD [address], [place] [address] documented as of this encounter Procedures Procedure Name Priority Date/Time Associated Diagnosis Comments CBC (WITH DIFF) Routine 06/11/2017 1:19 PM EST Neutropenia, unspecified type COMPREHENSIVE METABOLIC PANEL Routine 06/11/2017 1:19 PM EST Neutropenia, unspecified type documented in this encounter Results * Comprehensive metabolic panel (non-fasting) (06/11/2017 1:19 PM EST) Pathologist [facility] Blood Urea Nitrogen 13 7 - 18 [...] type documented in this encounter Care Teams Child Care Coordinator Relationship Specialty Start Date End Date Deborah Quiroga APRN PCP - General Family Medicine 03/24/16 02/04/23 documented as of this encounter
--- OUTSIDE RECORDS SUMMARY | 2024-05-04 14:11 | XMS_ITS | Encounter Summary ---
[place] [address] Care Team Providers Care Army Ranger Name Role Phone Deborah Quiroga ANURAG Primary Care Provider [phone] Encounter Details Date Type Department Care Team (Late st Contact Info) Description 02/07/2020 Telephone Hematology [place] [phone] Ellen Rios RN Social History Tobacco Use [...] 02/07/2020 12:59 PM EDT Message received from secretary book keeper: Injection/Infusion Referral Services to be provided for pt are: CBC only at [facility]- Pt will go by 02/27 Orders faxed to [phone]). Spoke with pt. She will call [facility] directly to schedule a time that works for her. documented in this encounter Plan of Treatment Upcoming Encounters Date Type Department Care Team (Late st Contact Info) Description 05/12/2024 9:00 AM EDT Laboratory Appointment Lab at [facility] Hematology Oncology [address] [place] [address] 05/12/2024 10:00 AM EDT Office Visit Hematology [place] [address] Markel Borjas MD [facility] [address] [place] [address] 03/01/2025 4:15 PM EDT Office Visit Dermatology at [place] [address] [place] [address] Marek Bonilla MD [address] [place] [address] documented as of this encounter Visit Diagnoses Not on filedocumented in this encounter Care Teams Army Ranger Relationship Specialty Start Date End Date Deborah Quiroga APRN PCP - General Family Medicine 03/24/16 02/04/23 documented as of this encounter
--- OUTSIDE RECORDS SUMMARY | 2024-05-04 14:11 | XMS_ITS | Encounter Summary ---
Author Organization [facility] Address [facility] [place] [address] Care Team Providers Care Copier Repair Technician Name Role Phone Junaid Deborah Shields APRN Primary Care Provider [phone] Reason for Visit * Reason Comments Schedule Office Case Pain right leg Encounter Details Date Type Department Care Team (Late st Contact Info) Description 12/11/2016 9:00 AM EDT Office Visit Hematology [place] [address] Markel Borjas MD [facility] [address] [place] [address] Neutropenia, unspecified type Social History Tobacco Use [...] 12/11/2016 9:00 AM EDT Hematology Outpatient Clinic [facility] [...] TOUCH PREP, CLOT SECTION, CORE ??BIOPSY); [OSR# [id number], COLLECTED 06/23/2016, 19 SLIDES]: ?1. 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 Extremities: No edema. Labs: Hgb= 13 Rrgx=106 ANC= 0.5 Imaging As above - reviewed [...] 9:00 AM EDT Laboratory Appointment Lab at [facility] [place]ology Oncology [address] [place] [address] 05/12/2024 10:00 AM EDT Office Visit Hematology [place] [address] Markel Borjas MD [facility] [address] [place] [address] 03/01/2025 4:15 PM EDT Office Visit Dermatology at [place] [address] [place] [address] Marek Bonilla MD [address] [facility] [place] [address] documented as of this encounter Results * [...] type documented in this encounter Care Teams Copier Repair Technician Relationship Specialty Start Date End Date Deborah Quiroga, NAT INSTRUCTOR PCP - General Family Medicine 03/24/16 02/04/23 documented as of this encounter
--- OUTSIDE RECORDS SUMMARY | 2024-05-04 14:11 | XMS_ITS | Encounter Summary ---
Author [place] [address] Care Team Providers Care Can Dragger Name Role Phone Ashley Quirogan Cornelius ANURAG Primary Care Provider [phone] Reason for Visit * Reason Comments Skin Check Encounter Details Date Type Department Care Team (Late st Contact Info) Description 11/11/2020 10:45 AM EDT Office Visit Dermatology at [address] [place] [address] Marek Bonilla MD [address] [facility], [address] [address] D[facility]Y [place], [place] [id number] Rosacea; Acrochordon Social History Tobacco Use Types [...] Discussed the possibility of getting this through [employer] or from the [facility] pharmacy if necessary. She has not yet [...] [facility] Hematology Oncology [address] [place] [address] 05/12/2024 10:00 AM EDT Office Visit Hematology [place] [address] Markel Borjas MD [facility] [address] HEMATOLOGY [place] [address] 03/01/2025 4:15 PM EDT Office Visit Dermatology at [place] [address] [facility] [place] [phone] Marek Bonilla MD [address] [facility], [place] [address] documented as of this encounter Visit Diagnoses Diagnosis Rosacea Acrochordon Unspecified hypertrophic and atrophic condition of skin documented in this encounter Care Teams Can Dragger Relationship Specialty Start Date End Date Deborah Quiroga APRN PCP - General Family Medicine 03/24/16 02/04/23 documented as of this encounter
--- OUTSIDE RECORDS SUMMARY | 2024-05-04 14:11 | XMS_ITS | Encounter Summary ---
[place] [address] Care Team Providers Care Topology Teacher Name Role Phone Ashley Quirogan Cornelius ANURAG Primary Care Provider [phone] Reason for Visit * Reason Onset Date Comments Medical Care Coordination 07/27/2017 Encounter Details Date Type Department Care Team (Late st Contact Info) Description 07/27/2017 Telephone Hematology [place] [phone] Alexandrea Greenwood RN Medical Care Coordination Social [...] 07/27/2017 12:25 PM EST Message received from financial secretary: Injection/Infusion Referral Call placed to [facility] @ [phone] Spoke w/ [employer] Services to be provided for pt are: CBC/CMP DONE Q6 MONTHS X2 STARTING NOVEMBER 2017 TECH confirmed they would provide services to pt - I CALLED PT, LM. Pt orders faxed to [phone] documented in this encounter Plan of Treatment Upcoming Encounters Date Type Department Care Team (Late st Contact Info) Description 05/12/2024 9:00 AM EDT Laboratory Appointment Lab at [place] Hematology Oncology [address] [place] [address] 05/12/2024 10:00 AM EDT Office Visit Hematology [place] [address] Markel Borjas MD [facility] [address] [place] [address] 03/01/2025 4:15 PM EDT Office Visit Dermatology at [place] [address] [place] [phone] Marek Bonilla MD [address] [facility] [address] [place] [address] documented as of this encounter Visit Diagnoses Not on filedocumented in this encounter Care Teams Topology Teacher Relationship Specialty Start Date End Date Deborah Quiroga APRN PCP - General Family Medicine 03/24/16 02/04/23 documented as of this encounter
--- OUTSIDE RECORDS SUMMARY | 2024-05-04 14:11 | XMS_ITS | Encounter Summary ---
Author Organization [facility] Address [facility] [place] [address] Care Team Providers Care Tinware Lithograph Press Operator Name Role Phone Ashley Quirogan Cornelius ANURAG Primary Care Provider [phone] Encounter Details Date Type Department Care Team (Late st Contact Info) Description 03/04/2020 External Results Hematology [place] [phone] [employer] villela Social History Tobacco Use Types [...] [facility] [place] [address] [place] [address] 05/12/2024 10:00 AM EDT Office Visit H[place]ology [place] [phone] Markel Borjas MD [facility] [address] HEMATOLOGY [place] [address] 03/01/2025 4:15 PM EDT Office Visit Dermatology at [address] [phone] Marek Bonilla MD [address] [facility] [address], [place] [address] documented as of this encounter Procedures Procedure [...] Provider HEMATOLOGY ORDERA BLES Performing Organization Address City/State/[facility] Co de Phone Number EXTERNAL LAB documented in this encounter Visit Diagnoses Not on filedocumented in this encounter Care Teams Tinware Lithograph Press Operator Relationship Specialty Start Date End Date Deborah Quiroga, WOOD CABINETMAKER PCP - General Family Medicine 03/24/16 02/04/23 documented as of this encounter
--- OUTSIDE RECORDS SUMMARY | 2024-05-04 14:11 | XMS_ITS | Encounter Summary ---
Author Organization [facility] Address [facility] [address]rika [place] [address] Care Team Providers Care Operations Officer Trust Department Name Role Phone Deborah Quiroga ANURAG Primary Care Provider [phone] Encounter Details Date Type Department Care Team (Late st Contact Info) Description 01/13/2021 Refill Dermatology at [address] [address] Taylor Malone, A AND P TECHNICIAN Social History Tobacco Use Types Packs/Day [...] AM EDT Laboratory Appointment Lab at [facility] Hematology Oncology [address] [place] [address] 05/12/2024 10:00 AM EDT Office Visit Hematology [place] [address] Markel Borjas MD [facility] H[place]AT[place] [address] 03/01/2025 4:15 PM EDT Office Visit Dermatology at [address] [address] Marek Bonilla MD [address] [facility] [address], [place] [address] documented as of this encounter Visit Diagnoses Not on filedocumented in this encounter Care Teams Operations Officer Trust Department Relationship Specialty Start Date End Date Deborah Quiroga APRN PCP - General Family Medicine 03/24/16 02/04/23 documented as of this encounter
--- OUTSIDE RECORDS SUMMARY | 2024-05-04 14:11 | XMS_ITS | Encounter Summary ---
Author Organization Formerly [facility] [place] [address] Care Team Providers Care Roofer Helper Vinyl Coating Name Role Phone Ashley Quirogan Cornelius ANURAG Primary Care Provider [phone] Reason for Referral * Consultation (Routine) - Specialty Diagnoses / Procedures Referred By Contact Referred To Contact Cardiac Rehabilitation Diagnoses S/P AVR Alirio Esparza MD [facility] DR CARDIOTHORAC[place] [address] Cardiac Rehab, [address] [place] [address] Referral ID Status Reason Start Date Expiration Date V isits Requested Visits Authorized [id number] Consult, Test & Treat 09/25/2016 03/24/2017 36 36 Reason for Visit * Auth/Cert Specialty Diagnoses / Procedures Referred By Contkrystle t Referred To Contact Diagnoses Aortic stenosis Procedures PRO REPLACE AORT VALV, PROSTH VALV @REPLACE AORTIC VALVE, OPEN, W\CPB, W\PROSTHETIC VALVE (WRVU 41.32) Referral ID Status Reason Start Date Expiration Date Visits Re quested Visits Authorized [id number] 1 1 Encounter Details Date Type Department Care Team (Latest Contact Info) Description 09/21/2016 6:08 AM EST - 09/25/2016 4:33 PM EST Hospital Encounter Intermediate [place] [id number] Alirio Esparza MD Aortic valve stenosis, unspecified [...] Patient Age: 61 y.o. Birthdate: 1955 Language: Comoran Race: White Ethnicity: Not nor Admit Date: 09/21/2016 Discharge Date: 09/25/2016 Attending Physician: Alirio Esparza MD Follow-up Recommendations for Providers: Please continue routine management of cardiovascular risk factors including blood pressure, lipids,glucose, etc. Please note any changes to medications. Patient to follow-up with PCP, Deborah Quiroga APRN, in 1-2 weeks. Patient to follow-up with Sales Representative Metals, Dr. Antelmo Burrell, in two weeks. Patient to follow-up with Cardiac Surgery, Dr. Alirio Esparza, to be scheduled for before 10/19/2016, with CXR, EKG, and Echo. Inpatient Provider Contact Information: [facility] Section of Cardiac Surgery [facility] [place] [address] FAX [phone] Discharge Diagnoses (Hospital Problems) Primary Diagnoses: Secondary [...] 41.32) performed by Alirio Esparza MD at [facility] MAIN OR ??? Pro aortoplas for supravalv sten N/A 09/21/2016 @AORTOPLASTY FOR SUPRAVALVULAR STENOSIS (WRVU 29.33) performed by Alirio Esparza MD at [facility] MAIN OR Prior To Admission Medications [...] Course: Purnima Thacker was admitted to [facility] on 09/21/2016 via the Same [...] Alirio Esparza and/or the Cardiac Surgery Physician Locomotive Boilermaker Team may be reached at . Antibiotic prophylaxis: You will need to take antibiotics prior to many invasive tests and treatments, such as dental cleaning, which should be done every 6 months. Your primary care physician or your dentist can prescribe this medication. Please refer to the card with the [place] [employer] Guidelines for more information. You have been provided with 3 copies of this card. Keep one for your self. Give one to your primary care physician and one to your dentist. Please refer to the [place] Heart [employer] Guidelines for more information. [...] Dr. Alirio Jones. You may use a [place] Track or treadmill but avoid any pulling [...] should resume a low fat, low cholesterol, [place] Heart [employer] Diet. Driving: No driving [...] Phase 2 Cardiac Rehabilitation at [facility]. The patient agrees to a referral to this program. The referral will be sent at discharge and the patient should be contacted by the program within 1- 2 weeks from discharge. Future Appointments and Orders Future Appointments Provider Department Dept Phone 11/20/2016 11:30 AM Markel Borjas MD [facility] [phone] Future Orders Complete By Expires Echocardiogram Transthoracic([facility]) [WQU228 Custom] 10/18/2016 (Approximate) 09/18/2017 Process Instructions: If the Echocardiogram is to be PERFORMED in a location other than [facility]--STOP and order FXV800, Echocardiogram South/External. Scheduling Instructions: Questions: Is a Bubble Study requested?: No Does the patient have Congenital Heart Disease?: No Does patient require sedation?: None GA rationale: Should this service be billed to the research sponsor?: EKG 12 Lead [EKG1 Custom] 10/18/2016 (Approximate) 09/25/2017 Process Instructions: Scheduling Instructions: Questions: Which location will this be performed?: [facility] Is a rhythm strip needed?: No If EKG Reason is Pre-op Evaluation, indicate diagnosis for surgery.: Should this service be billed to the research sponsor?: XR Chest PA & Lateral (Generic) [[id number] Custom] 10/18/2016 (Approximate) 09/25/2017 Process Instructions: Scheduling Instructions: Questions: Where will study be performed?: [facility]- Radiology Portable exam?: No Reason for exam and clinical history: s/p AVReplacement, patch annuloplasty 1 month f/u Other pertinent information: Stat read required?: Date of injury if applicable: Requested Time: Referral to Cardiac Rehab [[id number] Custom] As directed Process Instructions: If no progress note charted, please enter Clinical details in comments. Scheduling Instructions: Questions: My question or request is: s/p AVR. Cardiac rehab at [facility] Referral to Home Health - at DISCHARGE [XHA4430 CPT(R)] As directed Process Instructions: Scheduling Instructions: Comments: DOCUMENTATION FOR VNA SERVICES (INCLUDING THOSE PATIENTS WITH MEDICARE COVERAGE REQUIRING HOME VNA SERVICES AND/OR HOSPICE SERVICES) PATIENT'S LOCATION: Purnima Magalie Kirstie [address] [place] [phone] (home) No relevant phone numbers on file. Commercial Field Inspector's Name: self In discussion with the attending physician, it is certified that this patient is under their care and that they, or a Nurse Practitioner, or Physician Locomotive Boilermaker who is working directly with them, hada [...] for services as follows: HOME HEALTH AGENCY: [facility] PHONE: [phone] FAX: [phone] RN orders: Cardiopulmonary assessment, incisional assessment, assess [...] issues please call the Cardiac SurgeryOffice at [phone] FOR MEDICARE ONLY: In discussion with the [...] noted. Questions: Agency name and contact information: [facility] Patient location post discharge: home What services are requested: Registered Nurse Physical Therapy Occupational Therapy Start date: Responsible MD post discharge contact info: Arrangements for VNA/home care: As above. VN RN OR PCP TO PLEASE REMOVE CHEST TUBE SUTURES ON OR AFTER 09/30/16 Signed: Crispin Aranda PA-C 09/25/2016 [facility] Section of Cardiac Surgery [facility] [place] [address] FAX [phone] Date: 09/25/2016 CC: ANURAG Alford Caryn E, APRN [address] [place] [address] documented in this encounter Discharge Instructions * [...] Alirio Esparza and/or the Cardiac Surgery Physician Locomotive Boilermaker Team may be reached at . Antibiotic prophylaxis: You will need to take antibiotics prior to many invasive tests and treatments, such as dental cleaning, which should be done every 6 months. Your primary care physician or your dentist can prescribe this medication. Please refer to the card with the [place] [employer] Guidelines for more information. You have been provided with 3 copies of this card. Keep one for your self. Give one to your primary care physician and one to your dentist. Please refer to the [place] Heart [employer] Guidelines for more information. [...] Dr. Alirio Jones. You may use a [place] Track or treadmill but avoid any pulling [...] should resume a low fat, low cholesterol, [place] Heart [employer] Diet. Driving: No driving [...] Phase 2 Cardiac Rehabilitation at [facility]. The patient agrees to a referral to [...] experiencing pain 1-1010.). 30 tablet 5 09/25/2016 meTOPROLOL tartrate (LOPRESSOR) 25 mg Tablet Take 25 mg by mouth 2 times daily. 02/05/2023 buPROPion (WELLBUTRIN SR) 100 mg Tablet Sustained Release Take 100 mg by mouth every evening. 11/11/2020 buPROPion (WELLBUTRIN SR) 150 mg 12 hr tablet Take 150 mg by mouth 2 times daily. 12/13/2013 01/09/2022 furosemide (LASIX) 20 mg Tablet Take 1 [...] PM EST Cardiac Surgery Progress Note: ID: [id number] S/p AVR, patch aortoplasty POD#2. PMH of [...] Gas) No results found for: PHART, PO2ART, IZM7WMV Assessment/Plan: TPW out this am. (+) BM. [...] Signed: Crispin Aranda PA-C 09/24/2016 Team pager: [phone] [facility] Section of Cardiac Surgery * Leonor Henson, ARTISAN PLASTERER - 09/23/2016 10:48 AM EST Cardiac Surgery Progress Note: ID: [id number] s/p AVR, patch aortoplasty POD#2. PMH of [...] Gas) No results found for: PHART, PO2ART, ZXM8NEH Assessment/Plan: s/p AVR, patch aortoplasty POD#2. PMH of Neutropenia, HLD, HTN, Depression, obesity, . Transferred from [facility] yesterday and doing well. Pathway. Will [...] on rounds. Signed: Leonor Henson APRN [facility] Section of Cardiac Surgery Date: 09/23/2016 * Nico Palacios PA - 09/22/2016 9:56 AM EST Cardiac Surgery Progress Note: ID: [id number] s/p AVR, patch aortoplasty POD#1. PMH of [...] ND, soft. Ext: Moves all extremities. [place], well perfused. Incisions: C/D/I Tubes/Lines/Drains: PIV, leanna, [...] Surgeon on rounds. Signed: EKATERINA KIM [facility] Section of Cardiac [...] with outpatient services Lalitha Cohen SPTA Pager: [phone] Inpatient Physical Therapy Patient status, treatment interventions, and goals discussed with student. I am in agreement with all details and associated flowsheet rows as documented and was present for all aspects of the patient treatment session. Nerykatrina Jaramillo, [facility] Pager [phone] Problem: Acute Rehab Services Goal & Intervention Plan Goal: Bed Mobility Goal Stand Alone Therapy Goal Outcome: Ongoing (Interventions Implemented as Appropriate) 09/22/16 16109/25/16 09 Bed Mobility Goal Bed Mobility Goal, Time to Achieve 4 days -- Bed Mobility Goal, Activity Type scoot/bridge;supine to sit/sit to supine -- Bed Mobility Goal, [place] Level independent -- Bed Mobility Goal, Additional [...] Achieve 4 days -- Gait Training Goal, [place] Level independent -- Gait Training Goal, Distance [...] assist, home with home health Lalitha Cohen [facility] Pager: [phone] Inpatient Physical Therapy Patient status, treatment interventions, and goals discussed with student. I am in agreement with all details and associated flowsheet rows as documented and was present for all aspects of the patient treatment session. Nery Jaramillo, [facility] Pager [phone] Problem: Acute Rehab Services Goal & Intervention Plan Goal: Bed Mobility Goal Stand Alone Therapy Goal Outcome: Ongoing (Interventions Implemented as Appropriate) 09/22/16 16109/23/16 1412 Bed Mobility Goal Bed Mobility Goal, Time to Achieve 4 days -- Bed Mobility Goal, Activity Type scoot/bridge;supine to sit/sit to supine -- Bed Mobility Goal, [place] Level independent -- Bed Mobility Goal, Additional [...] Achieve 4 days -- Gait Training Goal, [place] Level independent -- Gait Training Goal, Distance [...] days -- Transfer Training Goal, Activity Type jde-nt-emvqv/tgmqe-qn-ryw;prz-ec-tafmj/ygkxd-yo-iox -- Transfer Train Goal, [place] Level independent -- Transfer Training Goal, Additional Goal abides sternal precautions -- Transfer Training Goal, Outcome -- goal met * Consult Note - Jana Crenshaw RN - 09/23/2016 9:41 AM EST [facility] CARDIAC REHABILITATION Purnima Thacker was seen today regarding participation in the outpatient Phase 2 Cardiac Rehabilitation at [facility]. The patient agrees to a referral to [...] Another Service: (cardiac rehab) NICOLE HERNANDEZ, PT Pager:[phone] Inpatient Physical Therapy Problem: Acute Rehab Services Goal & Intervention Plan Goal: Bed Mobility Goal Stand Alone Therapy Goal Outcome: Ongoing (Interventions Implemented as Appropriate) 09/22/16 1611 Bed Mobility Goal Bed Mobility Goal, Time to Achieve 4 days Bed Mobility Goal, Activity Type scoot/bridge;supine to sit/sit to supine Bed Mobility Goal, [place] Level independent Bed Mobility Goal, Additional Goal able to abide sternal precautions during transfers Goal: Gait Training Goal Stand Alone Therapy Goal Outcome: Ongoing (Interventions Implemented as Appropriate) 09/22/16 1611 Gait Training Goal Gait Training Goal, Date Established 09/22/16 Gait Training Goal, Time to Achieve 4 days Gait Training Goal, [place] Level independent Gait Training Goal, Distance to Achieve ascend and descends 2 steps independently Goal: Goal Transfer Training Stand Alone Therapy Goal Outcome: Ongoing (Interventions Implemented as Appropriate) 09/22/16 1611 Goal Transfer Training Transfer Training Goal, Time to Achieve 4 days Transfer Training Goal, Activity Type pla-pl-watwu/dlkhn-hg-otj;wbf-mx-jeiyg/jkfjs-pp-fwy Transfer Train Goal, [place] Level independent Transfer Training Goal, Additional Goal [...] of completing AD's at home, chooses her gwdjib-ub-cqf, Martha Thacker (home) for her [facility], 2nd choice in friend, Nitesh Leroy [place], [place] Current Coping/Education/Information Needs: patient sitting up [...] who live close by, [place], and her eloeht-yd-jyo Martha Thacker who she has chosen to be her DPOAH. Also has a friend Nitesh Leroy who lives in [place], [place], also her DPOAH choice. Behavioral Health History: none on file in e[facility] Substance Use/Abuse: none on file in [facility] Other Pertinent/Service Specific Information: none Health/Prescription Coverage: Primary Insurance: [employer] Secondary Insurance: none Prescription Coverage: yes, per patient no issues Preferred Pharmacy: ?? Other: none Primary Care Provider: Deborah Quiroga, ARTISAN PLASTERER [phone] Patient/Caregiver Goals of Treatment: per medical team recommendations at discharge for CT surgery Potential Needs for Transition of Care: Rehab/SNF: TBD Home Health: TBD DME: no Dialysis: no Community Resources: non3 Transportation: ride home with a friend Other: none Anticipated Barriers to Discharge/Special Considerations: none anticipated at this time Plan: patient will need VNA services at discharge. The patient/access representative has been provided a list of Home Health Agencies/DME vendors which servetheir preferred geographic area. A letter describing our affiliations was reviewed with them and they were educated about their right to choose where referrals are placed. Patient requests referral to: [facility] [employer]. PHONE: [phone] FAX: [phone] Expected date of discharge: Fri/Sat? CM called VNA to confirm referral, talked with VALDO Bunn/intake who stated she was familiar w/patient & would monitor her progress through curaspan. Referral routed to the Grape Cutter for matching with agency/vendor and to provide any required information. A member of the Care Management team will continue to monitor progress, follow for continuity of care and assist with transition of care planning. Amanda Moreno RN Pager: [phone] * Op Note - Alirio Esparza MD - 09/21/2016 12:53 PM EST 09/23/2016 Purnima Thacker 1955 [id number] Preoperative Diagnosis: Symptomatic aortic stenosis Postoperative Diagnosis: Symptomatic aortic stenosis Procedure: Aortic valve replacement: Bovine Pericardial 25 mm Surgeon: Alirio Esparza M.D. Locomotive Boilermaker: Philip BALL Anesthesia: General endotracheal anesthesia Drains: [...] Operative Note Patient Name: Purnima Thacker : [id number] MR#: [id number] Case Date: 09/21/2016 Surgeon: Surgeon(s) and Role: * Alirio Esparza MD - Primary * Nico Palacios PA - Physician Locomotive Boilermaker Preoperative diagnosis: Postoperative diagnosis: Procedure(s) (LRB): @REPLACE [...] EDT Laboratory Appointment Lab at [facility] Hematology Oncology [address] [place] [address] 05/12/2024 10:00 AM EDT Office Visit [place] [address] Markel Borjas MD [facility] DR HEMATOLOGY [place] [address] 03/01/2025 4:15 PM EDT Office Visit Dermatology at [address] [place] [address] Marek Bonilla MD [address], [place] [address] Scheduled Orders Name Type Priority Associated Diagnoses [...] IMPLANTABLE DEVICES SCAN 09/26/2016 12:00 AM EST ASSISTANT PORTFOLIO MANAGER SCAN 09/26/2016 12:00 AM EST POTASSIUM [...] SCAN EXT O RDR/RSLT * SCAN DOC: ASSISTANT PORTFOLIO MANAGER (09/26/2016 12:00 AM EST) Anatomical Region Laterality Modality Other Narrative 09/26/2016 12:00 AM EST Ordered by an unspecified provider. Scanning Provider MEDIA MGR SCAN EXT O RDR/RSLT * Potassium (09/25/2016 4:32 AM EST) Pathologist [facility] Potassium 4.4 3.5 - 5.0 mmol/L [facility] [...] CHEMISTRY ORDERABLE S [facility] [place] [address] * (ABNORMAL) Differential, Automated (09/24/2016 9:56 AM EST) Neutrophil % 76.8 % [facility] Neutrophil Absolute 7.79(H) 1.70 - 6.10 x10(3)/mc L [facility] Lymph % 11.1 % [facility] Lymphocytes Abs 1.1 0.9 - 3.2 x10(3)/mc L [facility] Monocyte % 8.5 % [facility] Monocyte Abs 0.9 0.3 - 0.9 x10(3)/mc L [facility] Eos % 0.5 % [facility] Eosinophils Abs 0.0 0.0 - 0.4 x10(3)/[facility] LABORATORY Basophil % 0.2 % [facility] Baso Absolute 0.0 0.0 - 0.1 x10(3)/[facility] LABORATORY Immature Gran % 2.90 % [facility] Comment: Immature granulocytes(IG's)percentage and absolute count will include metamyelocytes, myelocytes, and promyelocytes. Blood smears from CBCs yielding IG's will be scanned manually for concordance. If this scan disagrees with the automated IG or if promyelocytes are noted, a manual differential will be performed. Immature Gran Absolute 0.29(H) 0.00 - 0.04 x10(3)/[facility] LAB[facility]ORY Blood specimen (specimen) 09/24/2016 9:56 AM EST 09/24/2016 10:04 AM EST Narrative Resulting Agency Comment Spec In Lab Alirio Esparza MD HEMATOLOGY ORDERABL ES [facility] [place] [address] * (ABNORMAL) Hemogram (09/24/2016 9:56 AM EST) White Blood Cell 10.1(H) 4.0 - 9.5 x10(3)/[facility] LAB[facility] Red Blood Cell 2.87(L) 4.00 - 5.21 x10(6)/[facility] Hemoglobin 9.4(L) 11.7 - 15.5 gm/dL [facility] Hematocrit 28.3(L) 35.7 - 45.8 % [facility] Mean Cell Volume 98.6(H) 82.6 - 94.4 fL [facility] Mean Cell Hemoglobin 32.8(H) 27.1 - 32.0 pg [facility] Mean Cell Hemoglobin Concentration 33.2 31.7 - 35.0 gm/dL [facility] Platelet 141(L) 145 - 357 x10(3)/mc L [facility] RDW Standard Deviation 45.0 37.0 - 46.0 fL [facility] RDW coefficient of variation 12.6 11.5 - 14.1 % [facility] Mean Platelet Volume 9.4 7.6 - 12.9 fL [facility] NRBC% auto 1.1 % [facility] NRBC Absolute 0.110(H) 0.000 - 0.000 x10(3)/mc L [facility] Blood specimen (specimen) 09/24/2016 9:56 AM EST 09/24/2016 10:04 AM EST Narrative Resulting Agency Comment Spec In Lab Alirio Esparza MD HEMATOLOGY ORDERABL ES [facility] [place] [id number] * (ABNORMAL) Basic Metabolic Panel (non-fasting) (09/24/2016 9:56 AM EST) Glucose 111 65 - 199 mg/dL [facility] Comment:Diabetes: >=200 mg/d L plus symptoms Blood Urea Nitrogen 23(H) 8 - 18 mg/dL [facility] Comment:result rechecked-ART Creatinine 0.89 0.70 - 1.20 mg/dL [facility] Comment: Please note that the pediatric reference intervals supplied above were not validated at [facility]. Results from pediatric patients should be interpreted in conjunction to the patient's age, height and muscle mass. Sodium 138 135 - 145 mmol/L [facility] Potassium 4.2 3.5 - 5.0 mmol/L [facility] Comment: Please note: ??Patients with WBC >100,000 may have falsely elevated Potassium levels. ??For accurate Potassium quantification in these patients send serum separator tube (gold top) for subsequent determinations. ??Contact the Clinical Chemistry Laboratory if there are any questions. Chloride 98 98 - 107 mmol/L [facility] Carbon Dioxide 26 22 - 31 mmol/L [facility] Anion Gap 14 5 - 15 mmol/L [facility] Calcium 9.1 8.5 - 10.5 mg/dL [facility] [...] the following links into your internet browser. [email or web address] Blood specimen (specimen) 09/24/2016 9:56 AM EST 09/24/2016 10:04 AM EST Narrative Resulting Agency Comment Spec In Lab Alirio Esparza MD CHEMISTRY ORDERABLE S [facility] [place] [address] * XR Chest PA & Lateral (Generic) [...] EST) Potassium 4.5 3.5 - 5.0 mmol/L [facility] [...] CHEMISTRY ORDERABLE S [facility] [place] [address] * POCT Glucose (09/22/2016 8:17 AM EST) Glucose, POC 131 65 - 199 mg/dL [facility] Comment: Supplemental ranges: <140 mg/dL before meals <180 mg/dL all other times of the day Blood specimen (specimen) 09/22/2016 8:17 AM EST 09/22/2016 8:17 AM EST Narrative Authorizing Provider Result Sldae Esparza MD POINT OF CARE TEST ORDERABLES [facility] [place] [address] * POCT Glucose (09/22/2016 4:01 AM EST) [facility] Glucose, POC 135 65 - 199 mg/dL [facility] Comment: Supplemental ranges: <140 mg/dL before meals <180 mg/dL all other times of the day Blood specimen (specimen) 09/22/2016 4:01 AM EST 09/22/2016 4:01 AM EST Alirio Esparza MD POINT OF CARE TEST ORDERABLES Performing Organization Address [facility] Co de Phone Number [facility] [place] [address] * Scan, Peripheral Blood (09/22/2016 4:00 AM EST) [facility] Plat estimate Normal [facility] RBC Morphology Abnormal [facility] Macrocyte 1-5 /HPF [facility] Plat, Giant Less than 1 /HPF [facility] Blood specimen (specimen) 09/22/2016 4:00 AM EST 09/22/2016 4:34 AM EST Narrative Resulting Agency Comment Spec In Lab Alirio Esparza MD HEMATOLOGY ORDERABL ES Performing Organization Address [facility] Co de Phone Number [facility] [place] [address] * Electrolytes panel (09/22/2016 4:00 AM EST) [facility] Sodium 145 135 - 145 mmol/L [facility] Potassium 4.4 3.5 - 5.0 mmol/L [facility] Comment: Please note: ??Patients with WBC >100,000 may have falsely elevated Potassium levels. ??For accurate Potassium quantification in these patients send serum separator tube (gold top) for subsequent determinations. ??Contact the Clinical Chemistry Laboratory if there are any questions. Chloride 107 98 - 107 mmol/L [facility] Carbon Dioxide 24 22 - 31 mmol/L [facility] Anion Gap 14 5 - 15 mmol/L [facility] Blood specimen (specimen) Venous Draw / Unknown 09/22/2016 4:00 AM EST 09/22/2016 4:34 AM EST Narrative Resulting Agency Comment Spec In Lab Alirio Esparza MD CHEMISTRY ORDERABLE S [facility] [place] [address] * (ABNORMAL) Differential, Automated (09/22/2016 4:00 AM EST) Neutrophil % 70.9 % [facility] Neutrophil Absolute 5.33 1.70 - 6.10 x10(3)/ L [facility] Lymph % 9.1 % [facility] Lymphocytes Abs 0.7(L) 0.9 - 3.2 x10(3)/[facility] LABORATORY Monocyte % 18.0 % [facility] Monocyte Abs 1.4(H) 0.3 - 0.9 x10(3)/ L [facility] Eos % 0.0 % [facility] Eosinophils Abs 0.0 0.0 - 0.4 x10(3)/[facility] LABORATORY Basophil % 0.1 % [facility] Baso Absolute 0.0 0.0 - 0.1 x10(3)/ L [facility] Immature Gran % 1.90 % [facility] Comment: Immature granulocytes(IG's)percentage and absolute count will include metamyelocytes, myelocytes, and promyelocytes. Blood smears from CBCs yielding IG's will be scanned manually for concordance. If this scan disagrees with the automated IG or if promyelocytes are noted, a manual differential will be performed. Immature Gran Absolute 0.14(H) 0.00 - 0.04 x10(3)/ L [facility] Blood specimen (specimen) 09/22/2016 4:00 AM EST 09/22/2016 4:34 AM EST Narrative Resulting Agency Comment Spec In Lab Alirio Esparza MD HEMATOLOGY ORDERABL ES Performing Organization Address City/[facility]/ZIP Co de Phone Number [facility] [place] [address] * (ABNORMAL) Hemogram (09/22/2016 4:00 AM EST) White Blood Cell 7.5 4.0 - 9.5 x10(3)/mc L [facility] Red Blood Cell 2.93(L) 4.00 - 5.21 x10(6)/mc L [facility] Hemoglobin 9.2(L) 11.7 - 15.5 gm/dL [facility] Hematocrit 28.0(L) 35.7 - 45.8 % [facility] Mean Cell Volume 95.6(H) 82.6 - 94.4 fL [facility] Mean Cell Hemoglobin 31.4 27.1 - 32.0 pg [facility] Mean Cell Hemoglobin Concentration 32.9 31.7 - 35.0 gm/dL [facility] Platelet 161 145 - 357 x10(3)/mc L [facility] RDW Standard Deviation 44.0 37.0 - 46.0 fL [facility] RDW coefficient of variation 12.6 11.5 - 14.1 % [facility] Mean Platelet Volume 9.3 7.6 - 12.9 fL [facility] NRBC% auto 0.3 % [facility] NRBC Absolute 0.020(H) 0.000 - 0.000 x10(3)/mc L [facility] Blood specimen (specimen) 09/22/2016 4:00 AM EST 09/22/2016 4:34 AM EST Narrative Resulting Agency Comment Spec In Lab Alirio Esparza MD HEMATOLOGY ORDERABL ES [facility] [place] [address] * (ABNORMAL) Cardiac Enzymes (09/22/2016 4:00 AM EST) Pathologist [facility] Troponin-T 0.13(H) <=0.03 ng/mL [facility] Comment: 0.03 ng/mL: Represents [...] consensus document of the Joint Society of Cardiology/[place] College of Cardiology Committee for the redefinition of myocardial infarction. ??Journal of the [place] College of Cardiology 2000; 36: 959-969] Creatine Kinase 338(H) 0 - 160 unit/L [facility] Blood specimen (specimen) 09/22/2016 4:00 AM EST 09/22/2016 4:34 AM EST Narrative Resulting Agency Comment Spec In Lab Alirio Esparza MD CHEMISTRY ORDERABLE S [facility] [place] [address] * (ABNORMAL) Glucose, fasting (09/22/2016 4:00 AM EST) Pathologist [facility] Glucose Fasting 137(H) 65 - 99 mg/dL [facility] Comment: ?Fasting* Glucose Interpretive [...] of Diabetes Mellitus, Position Statement from the [place] [employer] Association. ??Diabetes Care, Volume 33, Supplement 1, Aug 2009 Blood specimen (specimen) 09/22/2016 4:00 AM EST 09/22/2016 4:34 AM EST Narrative Resulting Agency Comment Spec In Lab Alirio Esparza MD CHEMISTRY ORDERABLE S Performing Organization Address [facility] Co de Phone Number [facility] [place] [address] * (ABNORMAL) Creatinine (09/22/2016 4:00 AM EST) [facility] Signature Creatinine 0.69(L) 0.70 - 1.20 mg/dL [facility] Comment: Please note that the pediatric reference intervals supplied above were not validated at [facility]. Results from pediatric patients should be interpreted in conjunction to the patient's age, height and muscle mass. Est Glomerular Filtration Rate >60 >=60 [facility] [...] the following links into your internet browser. [email or web address] Blood specimen (specimen) 09/22/2016 4:00 AM EST 09/22/2016 4:34 AM EST Narrative Resulting Agency Comment Spec In Lab Alirio Esparza MD CHEMISTRY ORDERABLE S Performing Organization Address [facility] Co de Phone Number [facility] [place] [address] * BUN (09/22/2016 4:00 AM EST) Blood Urea Nitrogen 10 8 - 18 mg/dL [facility] Blood specimen (specimen) 09/22/2016 4:00 AM EST 09/22/2016 4:34 AM EST Narrative Resulting Agency Comment Spec In Lab Alirio Esparza MD CHEMISTRY ORDERABLE S Performing Organization Address City/[facility]/ZIP Co de Phone Number [facility] [place] [address] * POCT Glucose (09/21/2016 9:59 PM EST) Glucose, POC 146 65 - 199 mg/dL [facility] Comment: Supplemental ranges: <140 mg/dL before meals <180 mg/dL all other times of the day Blood specimen (specimen) 09/21/2016 9:59 PM EST 09/21/2016 9:59 PM EST Alirio Esparza MD POINT OF CARE TEST ORDERABLES Performing Organization Address [facility]/ZIP Co de Phone Number [facility] [place] [address] * POCT Glucose (09/21/2016 7:26 PM EST) Glucose, POC 152 65 - 199 mg/dL [facility] Comment: Supplemental ranges: <140 mg/dL before meals <180 mg/dL all other times of the day Blood specimen (specimen) 09/21/2016 7:26 PM EST 09/21/2016 7:26 PM EST Alirio Esparza MD POINT OF CARE TEST ORDERABLES Performing Organization Address City/[facility]/ZIP Co de Phone Number [facility] [place] [address] * POCT Glucose (09/21/2016 6:00 PM EST) Glucose, POC 146 65 - 199 mg/dL [facility] Comment: Supplemental ranges: <140 mg/dL before meals <180 mg/dL all other times of the day Blood specimen (specimen) 09/21/2016 6:00 PM EST 09/21/2016 6:00 PM EST Alirio Esparza MD POINT OF CARE TEST ORDERABLES [facility] [place] [address] * (ABNORMAL) BLOOD GAS 2 ARTERIAL (09/21/2016 4:42 PM EST) pH, Arterial 7.35(L) 7.35 - 7.45 [facility] PCO2, Arterial 48(H) 35 - 45 mmHg [facility] PO2, Arterial 108(H) 85 - 104 mmHg [facility] Bicarbonate, Arterial 26.0 20.0 - 26.0 mmol/L [facility] Base Excess, Arterial 0.5 -3.0 - 3.0 mmol/L [facility] Hgb Blood Gas 10.4(L) 11.7 - 15.5 gm/dL [facility] Oxyhemoglobin, Arterial 96.2 94.0 - 97.0 % [facility] Carboxyhemoglob in, Arterial 0.0 % [facility] Comment: Nonsmokers: 0.5-1.5% COHB Smokers: Variable, but usually less than 10% Toxic: 20-30% COHB Lethal: Greater than 60% COHB Methemoglobin, Arterial 0.7 <=1.5 % [facility] Na Whole Blood 139 135 - 145 mmol/L [facility] K Whole Blood 4.2 3.5 - 5.0 mmol/L [facility] Comment: Please note: Patients with WBC >100,000 may have falsely elevated Potassium levels. Contact the Clinical Chemistry Laboratory if there are any questions. ICa Whole Blood 1.13(L) 1.15 - 1.33 mmol/L [facility] Comment: Note: ??Total bilirubin higher than 20 mg/dL may lead to falsely low ionized calcium. CL Whole Blood 106 98 - 107 mmol/L [facility] Gluc Whole Bld 147 65 - 199 mg/dL [facility] Comment:Diabetes: >=200 mg/d L plus symptoms. Lactate WB 1.2 0.5 - 2.2 mmol/L [facility] FIO2 Art 40 % [facility] PF Ratio Art 270 [facility] Blood specimen (specimen) 09/21/2016 4:42 PM EST 09/21/2016 4:42 PM EST Alirio Esparza MD POINT OF CARE TEST ORDERABLES Performing Organization Address [facility] Co de Phone Number [facility] [place] [address] * POCT Glucose (09/21/2016 4:07 PM EST) Glucose, POC 150 65 - 199 mg/dL [facility] Comment: Supplemental ranges: <140 mg/dL before meals <180 mg/dL all other times of the day Blood specimen (specimen) 09/21/2016 4:07 PM EST 09/21/2016 4:07 PM EST Alirio Esparza MD POINT OF CARE TEST ORDERABLES Performing Organization Address [facility] Co de Phone Number [facility] [place] [address] * (ABNORMAL) Hemoglobin (09/21/2016 4:05 PM EST) Hemoglobin 9.9(L) 11.7 - 15.5 gm/dL [facility] Blood specimen (specimen) 09/21/2016 4:05 PM EST 09/21/2016 4:20 PM EST Narrative Resulting Agency Comment Spec In Lab Alirio Esparza MD HEMATOLOGY ORDERABL ES Performing Organization Address [facility] Co de Phone Number [facility] [place] [address] * Potassium (09/21/2016 4:05 PM EST) Potassium 4.6 3.5 - 5.0 mmol/L [facility] MD CHEMISTRY ORDERABLE S Performing Organization Address City/[facility]/ZIP Co de Phone Number [facility] [place] [address] * POCT Glucose (09/21/2016 2:52 PM EST) Glucose, POC 117 65 - 199 mg/dL [facility] Comment: Supplemental ranges: <140 mg/dL before meals <180 mg/dL all other times of the day Blood specimen (specimen) 09/21/2016 2:52 PM EST 09/21/2016 2:52 PM EST Alirio Esparza MD POINT OF CARE TEST ORDERABLES Performing Organization Address City/[facility]/ZIP Co de Phone Number [facility] [place] [address] * POCT Glucose (09/21/2016 1:51 PM EST) Glucose, POC 108 65 - 199 mg/dL [facility] Comment: Supplemental ranges: <140 mg/dL before meals <180 mg/dL all other times of the day Blood specimen (specimen) 09/21/2016 1:51 PM EST 09/21/2016 1:51 PM EST Alirio Esparza MD POINT OF CARE TEST ORDERABLES Performing Organization Address City/[facility]/ZIP Co de Phone Number [facility] [place] [address] * POCT Glucose (09/21/2016 12:54 PM EST) Glucose, POC 128 65 - 199 mg/dL [facility] Comment: Supplemental ranges: <140 mg/dL before meals <180 mg/dL all other times of the day Blood specimen (specimen) 09/21/2016 12:54 PM EST 09/21/2016 12:54 PM EST Alirio Esparza MD POINT OF CARE TEST ORDERABLES [facility] [place] [address] * EKG 12 Lead (09/21/2016 12:26 PM EST) Ventricular rate 87 BPM MUSE SYSTEM Atrial Rate 87 BPM MUSE SYSTEM P-R Interval 256 ms MUSE SYSTEM QRS Duration 90 ms MUSE SYSTEM Q-T Interval 406 ms MUSE SYSTEM QTC Calculated (Bezet) 488 ms MUSE SYSTEM Calculated P [place] 24 degrees MUSE SYSTEM Calculated R [place] 21 degrees MUSE SYSTEM Calculated T [place] -5 degrees MUSE SYSTEM INTERPRETATION Sinus rhythm [...] course of the esophagus and below the [id number]. There is a right IJ PA catheter [...] the course of theesophagus and below the [id number]. There is a right IJ PA catheter [...] EST) pH, Arterial 7.41 7.35 - 7.45 [facility] PCO2, Arterial 42 35 - 45 mmHg [facility] PO2, Arterial 356(H) 85 - 104 mmHg [facility] Bicarbonate, Arterial 26.2(H) 20.0 - 26.0 mmol/L [facility] Base Excess, Arterial 1.6 -3.0 - 3.0 mmol/L [facility] Hgb Blood Gas 10.7(L) 11.7 - 15.5 gm/dL [facility] Oxyhemoglobin, Arterial 98.1(H) 94.0 - 97.0 % [facility] Carboxyhemoglob in, Arterial 0.3 % [facility] Comment: Nonsmokers: 0.5-1.5% COHB Smokers: Variable, but usually less than 10% Toxic: 20-30% COHB Lethal: Greater than 60% COHB Methemoglobin, Arterial 0.8 <=1.5 % [facility] Na Whole Blood 140 135 - 145 mmol/L [facility] K Whole Blood 3.8 3.5 - 5.0 mmol/L [facility] Comment: Please note: Patients with WBC >100,000 may have falsely elevated Potassium levels. Contact the Clinical Chemistry Laboratory if there are any questions. ICa Whole Blood 1.15(L) 1.15 - 1.33 mmol/L [facility] Comment: Note: ??Total bilirubin higher than 20 mg/dL may lead to falsely low ionized calcium. CL Whole Blood 106 98 - 107 mmol/L [facility] Gluc Whole Bld 135 65 - 199 mg/dL [facility] Comment:Diabetes: >=200 mg/d L plus symptoms. Lactate WB 2.2 0.5 - 2.2 mmol/L [facility] FIO2 Art 100 % [facility] PF Ratio Art 356 [facility] Blood specimen (specimen) 09/21/2016 12:20 PM EST 09/21/2016 12:20 PM EST Alirio Esparza MD POINT OF CARE TEST ORDERABLES [facility] [place] [address] * (ABNORMAL) BLOOD GAS 2 ARTERIAL (09/21/2016 10:54 AM EST) pH, Arterial 7.43 7.35 - 7.45 [facility] PCO2, Arterial 40 35 - 45 mmHg [facility] PO2, Arterial 297(H) 85 - 104 mmHg [facility] Bicarbonate, Arterial 26.0 20.0 - 26.0 mmol/L [facility] Base Excess, Arterial 1.6 -3.0 - 3.0 mmol/L [facility] Hgb Blood Gas 8.6(L) 11.7 - 15.5 gm/dL [facility] Oxyhemoglobin, Arterial 98.6(H) 94.0 - 97.0 % [facility] Carboxyhemoglob in, Arterial 0.5 % [facility] Comment: Nonsmokers: 0.5-1.5% COHB Smokers: Variable, but usually less than 10% Toxic: 20-30% COHB Lethal: Greater than 60% COHB Methemoglobin, Arterial 0.3 <=1.5 % [facility] Na Whole Blood 134(L) 135 - 145 mmol/L [facility] K Whole Blood 4.5 3.5 - 5.0 mmol/L [facility] Comment: Please note: Patients with WBC >100,000 may have falsely elevated Potassium levels. Contact the Clinical Chemistry Laboratory if there are any questions. ICa Whole Blood 1.16 1.15 - 1.33 mmol/L [facility] Comment: Note: ??Total bilirubin higher than 20 mg/dL may lead to falsely low ionized calcium. CL Whole Blood 104 98 - 107 mmol/L [facility] Gluc Whole Bld 240(H) 65 - 199 mg/dL [facility] Comment:Diabetes: >=200 mg/d L plus symptoms. Lactate WB 2.4(H) 0.5 - 2.2 mmol/L [facility] FIO2 Art 95 % [facility] Flow Art 0.7 LPM [facility] PF Ratio Art 313 [facility] Temp Art 36.7 Celsius [facility] Blood specimen (specimen) 09/21/2016 10:54 AM EST 09/21/2016 10:54 AM EST Alirio Esparza MD POINT OF CARE TEST ORDERABLES [facility] [place] [address] * Thrombin time (09/21/2016 10:50 AM EST) Thrombin Time 19 15 - 20 sec [facility] Comment: A prolongation in [...] HEMATOLOGY ORDERABLE S Performing Organization Address [facility] Co de Phone Number [facility] [place] [address] * Fibrinogen (09/21/2016 10:50 AM EST) Fibrinogen 228 180 - 510 mg/dL [facility] Comment: Called by: JONNATHAN, Read back by: MICHELLE ALEJANDRE_, Date/Time:09/21/16 11:11. A fibrinogen level >100 mg/dL is adequate for hemostasis in most patients without underlying bleeding disorders. Blood specimen (specimen) 09/21/2016 10:50 AM EST 09/21/2016 10:56 AM EST Narrative Resulting Agency Comment Spec In Lab Luis Enrique Quarles MD HEMATOLOGY ORDERABLE S [facility] [place] [address] * APTT (09/21/2016 10:50 AM EST) Partial Thromboplastin Time 32 25 - 35 sec [facility] Comment: The recommended therapeutic range for full dose, unfractionated heparin at [facility] is 80 ? [...] HEMATOLOGY ORDERABLE S Performing Organization Address [facility] de Phone Number [facility] [place] [address] * (ABNORMAL) Prothrombin Time (09/21/2016 10:50 AM EST) Prothrombin Time 18.7(H) 12.0 - 15.0 sec [facility] Comment: An INR [...] International Normalization Ratio 1.5(H) 0.9 - 1.1 [facility] Blood specimen (specimen) 09/21/2016 10:50 AM EST 09/21/2016 10:56 AM EST Narrative Resulting Agency Comment Spec In Lab Luis Enrique Quarles MD HEMATOLOGY ORDERABLE S Performing Organization Address [facility] de Phone Number [facility] [place] [address] * (ABNORMAL) Hemogram (09/21/2016 10:50 AM EST) White Blood Cell 14.7(H) 4.0 - 9.5 x10(3)/mc L [facility] Red Blood Cell 2.40(L) 4.00 - 5.21 x10(6)/mc L [facility] Hemoglobin 7.9(L) 11.7 - 15.5 gm/dL [facility] Hematocrit 23.2(L) 35.7 - 45.8 % [facility] Comment: This result has been called to MICHELLE GRIGSBY by ASHU MORENO on 09 21 2016 at 1102, and has been read back. Mean Cell Volume 96.7(H) 82.6 - 94.4 fL [facility] Mean Cell Hemoglobin 32.9(H) 27.1 - 32.0 pg [facility] Mean Cell Hemoglobin Concentration 34.1 31.7 - 35.0 gm/dL [facility] Platelet 117(L) 145 - 357 x10(3)/mc L [facility] RDW Standard Deviation 42.6 37.0 - 46.0 fL [facility] RDW coefficient of variation 12.1 11.5 - 14.1 % [facility] Mean Platelet Volume 9.2 7.6 - 12.9 fL [facility] NRBC% auto 0.1 % [facility] NRBC Absolute 0.020(H) 0.000 - 0.000 x10(3)/mc L [facility] Blood specimen (specimen) 09/21/2016 10:50 AM EST 09/21/2016 10:56 AM EST Narrative Resulting Agency Comment Spec In Lab Luis Enrique Quarles MD HEMATOLOGY ORDERABLE S Performing Organization Address City/[facility] Co de Phone Number [facility] [place] [address] * Prepare Platelets, Apheresis (09/21/2016 10:30 AM EST) Pathologist [facility] Dispensed? Yes [facility] Blood specimen (specimen) 09/21/2016 10:30 AM EST 09/21/2016 10:28 AM EST Alirio Esparza MD BLOOD BANK PRODUCT ORDERABLES Performing Organization Address City/[facility]/ZIP Co de Phone Number [facility] [place] [address] * (ABNORMAL) BLOOD GAS 2 ARTERIAL (09/21/2016 10:05 AM EST) Pathologist [facility] pH, Arterial 7.33(L) 7.35 - 7.45 [facility] PCO2, Arterial 54(Critic al) 35 - 45 mmHg [facility] Comment:Noted by instrument technician. PO2, Arterial 218(H) 85 - 104 mmHg [facility] Bicarbonate, Arterial 27.9(H) 20.0 - 26.0 mmol/L [facility] Base Excess, Arterial 2.0 -3.0 - 3.0 mmol/L [facility] Hgb Blood Gas 8.6(L) 11.7 - 15.5 gm/dL [facility] Oxyhemoglobin, Arterial 98.4(H) 94.0 - 97.0 % [facility] Carboxyhemoglo bin, Arterial 0.5 % [facility] Comment: Nonsmokers: 0.5-1.5% COHB Smokers: Variable, but usually less than 10% Toxic: 20-30% COHB Lethal: Greater than 60% COHB Methemoglobin, Arterial 0.3 <=1.5 % [facility] Na Whole Blood 129(L) 135 - 145 mmol/L [facility] K Whole Blood 6.2(Criti gabrielle) 3.5 - 5.0 mmol/L [facility] Comment: Noted by instrument technician. Please note: Patients with WBC >100,000 may have falsely elevated Potassium levels. Contact the Clinical Chemistry Laboratory if there are any questions. ICa Whole Blood 0.95(L) 1.15 - 1.33 mmol/L [facility] Comment: Note: ??Total bilirubin higher than 20 mg/dL may lead to falsely low ionized calcium. CL Whole Blood 100 98 - 107 mmol/L [facility] Gluc Whole Bld 289(H) 65 - 199 mg/dL [facility] Comment:Diabetes: >=200 mg/d L plus symptoms. Lactate WB 2.2 0.5 - 2.2 mmol/L [facility] Temp Art 37.0 Celsius [facility] Blood specimen (specimen) 09/21/2016 10:05 AM EST 09/21/2016 10:05 AM EST Alirio Esparza MD POINT OF CARE TEST ORDERABLES [facility] [place] [address] * (ABNORMAL) BLOOD GAS 2 ARTERIAL (09/21/2016 9:44 AM EST) pH, Arterial 7.22(Criti gabrielle) 7.35 - 7.45 [facility] Comment:Noted by instrument technician. PCO2, Arterial 70(Critica l) 35 - 45 mmHg [facility] Comment:Noted by instrument technician. PO2, Arterial 224(H) 85 - 104 mmHg [facility] Bicarbonate, Arterial 27.8(H) 20.0 - 26.0 mmol/L [facility] Base Excess, Arterial 0.0 -3.0 - 3.0 mmol/L [facility] Hgb Blood Gas 8.7(L) 11.7 - 15.5 gm/dL [facility] Oxyhemoglobin, Arterial 98.5(H) 94.0 - 97.0 % [facility] Carboxyhemoglob in, Arterial 0.6 % [facility] Comment: Nonsmokers: 0.5-1.5% COHB Smokers: Variable, but usually less than 10% Toxic: 20-30% COHB Lethal: Greater than 60% COHB Methemoglobin, Arterial 0.3 <=1.5 % [facility] Na Whole Blood 131(L) 135 - 145 mmol/L [facility] K Whole Blood 5.9(H) 3.5 - 5.0 mmol/L [facility] Comment: Please note: Patients with WBC >100,000 may have falsely elevated Potassium levels. Contact the Clinical Chemistry Laboratory if there are any questions. ICa Whole Blood 1.00(L) 1.15 - 1.33 mmol/L [facility] Comment: Note: ??Total bilirubin higher than 20 mg/dL may lead to falsely low ionized calcium. CL Whole Blood 101 98 - 107 mmol/L [facility] Gluc Whole Bld 227(H) 65 - 199 mg/dL [facility] Comment:Diabetes: >=200 mg/d L plus symptoms. Lactate WB 2.1 0.5 - 2.2 mmol/L [facility] Blood specimen (specimen) 09/21/2016 9:44 AM EST 09/21/2016 9:44 AM EST Alirio Esparza MD POINT OF CARE TEST ORDERABLES Performing Organization Address [facility] de Phone Number [facility] [place] [address] * (ABNORMAL) Hemoglobin (09/21/2016 9:42 AM EST) Hemoglobin 7.2(L) 11.7 - 15.5 gm/dL [facility] Blood specimen (specimen) 09/21/2016 9:42 AM EST 09/21/2016 9:51 AM EST Narrative Resulting Agency Comment Spec In Lab Alirio Esparza MD HEMATOLOGY ORDERABL ES Performing Organization Address [facility] [facility] Phone Number [facility] [place] [address] * Platelet count (09/21/2016 9:42 AM EST) Platelet 159 145 - 357 x10(3)/mc L [facility] Immature Plt % 1.6 0.0 - 7.4 % [facility] Comment: Limitation of the Immature Platelet Fraction (IPF)-May be less reliable when the platelet count is less than 17j925/uL due to statistical imprecision. The IPF value [...] in a decreased state of production. References: [employer] The Clinical Value of the Immature Platelet Fraction (IPF) in Cell Recovery Document Number [id number] 12/2010 [employer] The Role of the Immature Platelet Fraction (IPF) in the Differential Diagnosis of Thrombocytopenia, Document [id number] V05/07/15 P012/13 Blood specimen (specimen) 09/21/2016 9:42 AM EST 09/21/2016 9:51 AM EST Narrative Resulting Agency Comment Spec In Lab Alirio Esparza MD HEMATOLOGY ORDERABL ES Performing Organization Address [facility] Co de Phone Number [facility] [place] [address] * (ABNORMAL) Hematocrit (09/21/2016 9:42 AM EST) Hematocrit 21.6(L) 35.7 - 45.8 % [facility] Comment: This result has been called to MICHELLE ALEJANDRE by Serjio Frazier on 09 21 2016 at 0957, and has been read back. Blood specimen (specimen) 09/21/2016 9:42 AM EST 09/21/2016 9:51 AM EST Narrative Resulting Agency Comment Spec In Lab Alirio Esparza MD HEMATOLOGY ORDERABL ES Performing Organization Address [facility] Co de Phone Number [facility] [place] [address] * Fibrinogen (09/21/2016 9:42 AM EST) Fibrinogen 219 180 - 510 mg/dL [facility] Comment: Called by: JONNATHAN, Read back by: MICHELLE ALEJANDRE_, Date/Time:09/21/16 10:03_. A fibrinogen level >100 mg/dL is adequate for hemostasis in most patients without underlying bleeding disorders. Blood specimen (specimen) 09/21/2016 9:42 AM EST 09/21/2016 9:51 AM EST Narrative Resulting Agency Comment Spec In Lab Alirio Esparza MD HEMATOLOGY ORDERABL ES [facility] [place] [address] * (ABNORMAL) BLOOD GAS 2 ARTERIAL (09/21/2016 9:10 AM EST) pH, Arterial 7.36 7.35 - 7.45 [facility] PCO2, Arterial 48(H) 35 - 45 mmHg [facility] PO2, Arterial 295(H) 85 - 104 mmHg [facility] Bicarbonate, Arterial 26.0 20.0 - 26.0 mmol/L [facility] Base Excess, Arterial 0.5 -3.0 - 3.0 mmol/L [facility] Hgb Blood Gas 8.0(L) 11.7 - 15.5 gm/dL [facility] Oxyhemoglobin, Arterial 98.3(H) 94.0 - 97.0 % [facility] Carboxyhemoglob in, Arterial 1.0 % [facility] Comment: Nonsmokers: 0.5-1.5% COHB Smokers: Variable, but usually less than 10% Toxic: 20-30% COHB Lethal: Greater than 60% COHB Methemoglobin, Arterial 0.3 <=1.5 % [facility] Na Whole Blood 135 135 - 145 mmol/L [facility] K Whole Blood 5.4(H) 3.5 - 5.0 mmol/L [facility] Comment: Please note: Patients with WBC >100,000 may have falsely elevated Potassium levels. Contact the Clinical Chemistry Laboratory if there are any questions. ICa Whole Blood 0.93(L) 1.15 - 1.33 mmol/L [facility] Comment: Note: ??Total bilirubin higher than 20 mg/dL may lead to falsely low ionized calcium. CL Whole Blood 102 98 - 107 mmol/L [facility] Gluc Whole Bld 195 65 - 199 mg/dL [facility] Comment:Diabetes: >=200 mg/d L plus symptoms. Lactate WB 1.8 0.5 - 2.2 mmol/L [facility] Temp Art 37.0 Celsius [facility] Blood specimen (specimen) 09/21/2016 9:10 AM EST 09/21/2016 9:10 AM EST Alirio Esparza MD POINT OF CARE TEST ORDERABLES [facility] [place] [address] * Surgical Pathology Report (09/21/2016 9:09 AM EST) Final Diagnosis [id number] ?Location: 3T The signing pathologist has (i) [...] ?. (R1) ??ADELITA 09/24/2016 9:32 AM EST [facility] AORTIC STRUCTURE / Unknown 09/21/2016 9:09 AM EST 09/21/2016 9:09 AM EST Alirio Esparza MD PATHOLOGY/CYTOLOGY ORDERABLES Performing Organization Address City/[facility]/[place]IP [place] [address] * Specimen to Pathology (surgical or derm) (09/21/2016 9:09 AM EST) AP Specimen 09/21/2016 9:09 AM EST 09/21/2016 9:09 AM EST Narrative [facility] - 09/21/2016 9:09 AM EST Specimen requisition ordered. ??Separate Pathology report to follow Alirio Esparza MD PATHOLOGY/CYTOLOGY ORDERABLES Performing Organization Address [facility] [place] [address] * (ABNORMAL) BLOOD GAS 2 ARTERIAL (09/21/2016 8:50 AM EST) pH, Arterial 7.41 7.35 - 7.45 [facility] PCO2, Arterial 33(L) 35 - 45 mmHg [facility] PO2, Arterial 348(H) 85 - 104 mmHg [facility] Bicarbonate, Arterial 20.6 20.0 - 26.0 mmol/L [facility] Base Excess, Arterial -4.1(L) -3.0 - 3.0 mmol/L [facility] Hgb Blood Gas 9.5(L) 11.7 - 15.5 gm/dL [facility] Oxyhemoglobin, Arterial 98.8(H) 94.0 - 97.0 % [facility] Carboxyhemoglob in, Arterial 0.3 % [facility] Comment: Nonsmokers: 0.5-1.5% COHB Smokers: Variable, but usually less than 10% Toxic: 20-30% COHB Lethal: Greater than 60% COHB Methemoglobin, Arterial 0.3 <=1.5 % [facility] Na Whole Blood 137 135 - 145 mmol/L [facility] K Whole Blood 4.0 3.5 - 5.0 mmol/L [facility] Comment: Please note: Patients with WBC >100,000 may have falsely elevated Potassium levels. Contact the Clinical Chemistry Laboratory if there are any questions. ICa Whole Blood 1.04(L) 1.15 - 1.33 mmol/L [facility] Comment: Note: ??Total bilirubin higher than 20 mg/dL may lead to falsely low ionized calcium. CL Whole Blood 105 98 - 107 mmol/L [facility] Gluc Whole Bld 93 65 - 199 mg/dL [facility] Comment:Diabetes: >=200 mg/d L plus symptoms. Lactate WB 1.0 0.5 - 2.2 mmol/L [facility] Blood specimen (specimen) 09/21/2016 8:50 AM EST 09/21/2016 8:50 AM EST Alirio Esparza MD POINT OF CARE TEST ORDERABLES Performing Organization Address City/State/[facility] Co de Phone Number [facility] [place] [address] * (ABNORMAL) BLOOD GAS 2 ARTERIAL (09/21/2016 8:18 AM EST) pH, Arterial 7.42 7.35 - 7.45 [facility] PCO2, Arterial 36 35 - 45 mmHg [facility] PO2, Arterial 283(H) 85 - 104 mmHg [facility] Bicarbonate, Arterial 22.8 20.0 - 26.0 mmol/L [facility] Base Excess, Arterial -2.0 -3.0 - 3.0 mmol/L [facility] Hgb Blood Gas 12.6 11.7 - 15.5 gm/dL [facility] Oxyhemoglobin, Arterial 99.0(H) 94.0 - 97.0 % [facility] Carboxyhemoglob in, Arterial 0.6 % [facility] Comment: Nonsmokers: 0.5-1.5% COHB Smokers: Variable, but usually less than 10% Toxic: 20-30% COHB Lethal: Greater than 60% COHB Methemoglobin, Arterial 0.0 <=1.5 % [facility] Na Whole Blood 144 135 - 145 mmol/L [facility] K Whole Blood 4.0 3.5 - 5.0 mmol/L [facility] Comment: Please note: Patients with WBC >100,000 may have falsely elevated Potassium levels. Contact the Clinical Chemistry Laboratory if there are any questions. ICa Whole Blood 1.22 1.15 - 1.33 mmol/L [facility] Comment: Note: ??Total bilirubin higher than 20 mg/dL may lead to falsely low ionized calcium. CL Whole Blood 106 98 - 107 mmol/L [facility] Gluc Whole Bld 102 65 - 199 mg/dL [facility] Comment:Diabetes: >=200 mg/d L plus symptoms. Lactate WB 1.2 0.5 - 2.2 mmol/L [facility] FIO2 Art 95 % [facility] Flow Art 1.1 LPM [facility] PF Ratio Art 298 [facility] Temp Art 35.6 Celsius [facility] Blood specimen (specimen) 09/21/2016 8:18 AM EST 09/21/2016 8:18 AM EST Alirio Esparza MD POINT OF CARE TEST ORDERABLES [facility] [place] [address] * Prepare RBC (09/21/2016 7:05 AM EST) Dispensed? Yes [facility] Blood specimen (specimen) 09/21/2016 7:05 AM EST 09/21/2016 7:02 AM EST Alirio Esparza MD BLOOD BANK PRODUCT ORDERABLES [facility] [place] [address] * POCT Glucose (09/21/2016 6:42 AM EST) Glucose, POC 104 65 - 199 mg/dL [facility] Comment: Supplemental ranges: <140 mg/dL before meals <180 mg/dL all other times of the day Blood specimen (specimen) 09/21/2016 6:42 AM EST 09/21/2016 6:42 AM EST Alirio Esparza MD POINT OF CARE TEST ORDERABLES Performing Organization Address [facility] Co de Phone Number [facility] [place] [address] documented in this encounter Visit Diagnoses Diagnosis [...] dose on Wed09/21/16 at 1230, Until Discontinued, Sayre teeth, Routine Given 09/25/2016 9:40 AM EST [...] if phenyleprine and/or vasopressin ineffective.Call pager # [phone] if initiated., Routine Rate/Dose Change 09/21/2016 2:27 [...] L/min/M2. Maximum volume 2 L. Call household appliance assembler for additional fluid orders: pager #[phone]. Rate/Dose Verify 09/22/2016 10:00 AM EST 10 [...] Patient/family refused)0600 (Not Given - Provider: Breanna Oliavs RN - Reason: Patient/family refused)0942 (Given - Provider: Joselyn Caceres RN - Comment: not given at 0600)1600 (Due - Provider: Kendall Martínez [facility]) aspirin chewable tablet 81 mg(Linked [...] dose on Wed09/21/16 at 1230, Until Discontinued, Sayre teeth, Routine 0900 (Not Given - Provider: [...] Routine documented in this encounter Care Teams Roofer Helper Vinyl Coating Relationship Specialty Start Date End Date Deborah Quiroga APRN PCP - General Family Medicine 03/24/16 02/04/23 documented as of this encounter
--- OUTSIDE RECORDS SUMMARY | 2024-05-04 14:11 | XMS_ITS | Encounter Summary ---
[place] [address] Care Team Providers Care Seeing Eye Dog Teacher Name Role Phone Ashley Quirogazac Shields APRN Primary Care Provider [phone] Reason for Visit * Reason Comments Annual Exam Encounter Details Date Type Department Care Team (Late st Contact Info) Description 01/09/2022 3:15 PM EDT Office Visit Dermatology at [address] [address] Marek Bonilla MD [address] [facility] DERMATOLOGY [place], [place] [id number] Rosacea Social History Tobacco Use Types Packs/Day [...] cutaneous and ocular 2. Previously told by commercial loan collection officer that she had corneal tears from her [...] refills. We will call this into her [facility] in [place] 3. Continue metronidazole 0.75% gel applying every [...] AM EDT Laboratory Appointment Lab at [facility] [place] On[place] [address] [place] [address] 05/12/2024 10:00 AM EDT Office Visit Hematology [place] [address] [facility] [address] [place] [address] 03/01/2025 4:15 PM EDT Office Visit Dermatology at [place] [address] [facility] [place] [phone] Marek Bonilla MD [address] [facility] [place] [address] documented as of this encounter Visit Diagnoses Diagnosis Rosacea documented in this encounter Care Teams Seeing Eye Dog Teacher Relationship Specialty Start Date End Date Deborah Quiroga APRN PCP - General Family Medicine 03/24/16 02/04/23 documented as of this encounter
--- OUTSIDE RECORDS SUMMARY | 2024-05-04 14:11 | XMS_ITS | Encounter Summary ---
Author Organization [facility] Address [facility] [address] Care Team Providers Care Nail Welter Name Role Phone Deborah Quiroga APRN Primary Care Provider [phone] Encounter Details Date Type Department Care Team (Latest Contact Info) Description 10/14/2016 - 10/14/2016 11:59 PM EDT Hospital Encounter Radiology Library at [facility] [place] [place] [phone] Alirio Esparza MD Pain Discharge Disposition: Home [...] by mouth 2 times daily. 12/13/2013 01/09/2022 oxyCODONE (ROXICODONE) 5 mg Tablet Take 1 [...] [facility] Hematology Oncology [address] [place] [address] 05/12/2024 10:00 AM EDT Office Visit [place]ematology [place] [address] Markel Borjas MD [facility] [address] [place] [address] 03/01/2025 4:15 PM EDT Office Visit Dermatology at [place] [address] [facility] [place] [address] Marek Bonilla MD [address], [place] [address] documented as of this encounter Procedures Procedure Name Priority Date/Time Associated Diagnosis Comments FILM LIBRARY STORAGE ONLY DX CHEST Routine 10/14/2016 12:00 AM EDT Pain documented in this encounter Results * Film Library- Storage Only DX Chest (10/14/2016 12:00 AM EDT) Narrative [facility] - 10/14/2016 5:16 PM EDT This exam is for storage only and is auto-finalizing. Alirio Esparza MD IMG FILM LIBRARY OR DERABLES Performing Organization Address City/State/[facility] Co de Phone Number [place], [place] documented in this encounter Visit Diagnoses Diagnosis Pain Generalized pain documented in this encounter Care Teams Nail Welter Relationship Specialty Start Date End Date Deborah Quiroga, AERONAUTICS COMMISSION DIRECTOR PCP - General Family Medicine 03/24/16 02/04/23 documented as of this encounter
--- OUTSIDE RECORDS SUMMARY | 2024-05-04 14:11 | XMS_ITS | Encounter Summary ---
[place] [address] Care Team Providers Care Frame Carver Spindle Name Role Phone Ashley Quirogazac Shields APRN Primary Care Provider [phone] Reason for Visit * Reason Onset Date Comments Results 12/03/2016 Encounter Details Date Type Department Care Team (Late st Contact Info) Description 12/03/2016 Telephone Hematology [place] [address] Yudith Valentine, RN Results Social History Tobacco [...] EDT RN received call from Maddy at [facility] reporting critical WBC at 1.61, and ANC of 0.5. She will fax the full results to this office for internal review and audit compliance notified DR Borjas of above results documented in this encounter Plan of Treatment Upcoming Encounters Date Type Department Care Team (Late st Contact Info) Description 05/12/2024 9:00 AM EDT Laboratory Appointment Lab [facility] [place] [address] [place] [address] 05/12/2024 10:00 AM EDT Office Visit Hematology [place] [address] Markel Borjas MD [facility] [address] [place] [address] 03/01/2025 4:15 PM EDT Office Visit Dermatology at [place] [address] [facility] [place] [address] Marek Bonilla MD [address], [address] Katherine [place] [address] documented as of this encounter Visit Diagnoses Not on filedocumented in this encounter Care Teams Frame Carver Spindle Relationship Specialty Start Date End Date Deborah Quiroga APRN PCP - General Family Medicine 03/24/16 02/04/23 documented as of this encounter
--- OUTSIDE RECORDS SUMMARY | 2024-05-04 14:11 | XMS_ITS | Encounter Summary ---
[place] [address] Care Team Providers Care Mesmerist Name Role Phone Ashley Quirogan Cornelius ANURAG Primary Care Provider [phone] Reason for Visit * Reason Comments Acrochordon Rosacea Encounter Details Date Type Department Care Team (Late st Contact Info) Description 12/05/2020 3:00 PM EDT Office Visit Dermatology at [address] [address] Marek Bonilla MD [address] [facility] [place] [address] Inflamed acrochordon Social History Tobacco Use Types [...] 9:00 AM EDT Laboratory Appointment Lab at [facility] [place] Oncology [address] [place] [address] 05/12/2024 10:00 AM EDT Office Visit [place] [address] Markel Borjas MD [facility] [address] [place] [address] 03/01/2025 4:15 PM EDT Office Visit Dermatology at [place] [address] [place] [address] Marek Bonilla MD [address] [facility] [place] [address] documented as of this encounter Visit Diagnoses Diagnosis Inflamed acrochordon Unspecified hypertrophic and atrophic condition of skin documented in this encounter Care Teams Mesmerist Relationship Specialty Start Date End Date Deborah Quiroga APRN PCP - General Family Medicine 03/24/16 02/04/23 documented as of this encounter
--- OUTSIDE RECORDS SUMMARY | 2024-05-04 14:11 | XMS_ITS | Encounter Summary ---
[place] [address] Care Team Providers Care Dental Laboratory Technology Teacher Name Role Phone Deborah Quiroga APRN Primary Care Provider [phone] Reason for Referral * Consultation (Routine) - Closed Specialty Diagnoses / Procedures Referred By Contac t Referred To Contact Rheumatology Diagnoses Positive FRANCISCO (antinuclear antibody) Arthralgia, unspecified joint Sandy Wu APRN [address] [place] [address] [facility] [address] [place] [phone] Referral ID Status Reason Start Date Expiration Date V isits Requested Visits Authorized [id number] Closed Consult, Test & Treat PCP Updated and/or Approved 01/01/2022 01/01/2023 6 6 Encounter Details Date Type Department Care Team (Latest Contact Info) Description 01/01/2022 Transcribe Orders eDH Incoming Referrals [phone] Sandy Wu APRN [address] [place], [place] [id number] Positive FRANCISCO (antinuclear antibody); Arthralgia, unspecified joint [...] [facility] On[facility] [address] [place] [address] 05/12/2024 10:00 AM EDT Office Visit Hematology [place] [address] Markel Borjas MD [facility] [address] HEMATOLOGY [place] [address] 03/01/2025 4:15 PM EDT Office Visit Dermatology at [place] [address] [facility] [address] Marek Bonilla MD [address], [place] [address] Scheduled Referrals Name Type Priority Associated Diagnoses Orde r Schedule Referral to Rheumatology Outpatient Referral Routine Positive FRANCISCO (antinuclear antibody) Arthralgia, unspecified joint Ordered: 01/01/2022 documented as of this encounter Visit Diagnoses Diagnosis Positive FRANCISCO (antinuclear antibody) Other and unspecified nonspecific immunological findings Arthralgia, unspecified joint documented in this encounter Care Teams Dental Laboratory Technology Teacher Relationship Specialty Start Date End Date Deborah Quiroga APRN PCP - General Family Medicine 03/24/16 02/04/23 documented as of this encounter
--- OUTSIDE RECORDS SUMMARY | 2024-05-04 14:11 | XMS_ITS | Encounter Summary ---
Author Organization [facility] [place] [address] Care Team Providers Care Lithographic Printing Machinist Name Role Phone Ashley Quirogan Cornelius ANURAG Primary Care Provider [phone] Encounter Details Date Type Department Care Team (Late st Contact Info) Description 02/06/2020 Orders Only Hematology [place] [phone] Markel Borjas MD [facility] [address] [place] [address] Neutropenia, unspecified type Social History Tobacco Use [...] [facility] [place] Oncology [address] [place] [address] 05/12/2024 10:00 AM EDT Office Visit Hematology [place] [phone] Markel Borjas MD [facility] [address] [place] [address] 03/01/2025 4:15 PM EDT Office Visit Dermatology at [place] [address] [facility] [place] [phone] Marek Bonilla MD [address] [facility] [facility] [facility] [address], [place] [address] documented as of this encounter Visit Diagnoses Diagnosis Neutropenia, unspecified type documented in this encounter Care Teams Lithographic Printing Machinist Relationship Specialty Start Date End Date Deborah Quiroga APRN PCP - General Family Medicine 03/24/16 02/04/23 documented as of this encounter
--- OUTSIDE RECORDS SUMMARY | 2024-05-04 14:11 | XMS_ITS | Encounter Summary ---
Author Organization [facility] Address [facility] [address]rika [address] [address] Care Team Providers Care Recreation Therapy Director Name Role Phone Deborah Quiroga ANURAG Primary Care Provider [phone] Encounter Details Date Type Department Care Team (Late st Contact Info) Description 11/11/2020 Refill Dermatology at [address] [address] Taylor Malone, ELECTRONICS ENGINEERING TECHNOLOGIST Social History Tobacco Use Types Packs/Day [...] [facility] Hematology Oncology [address] [place] [address] 05/12/2024 10:00 AM EDT Office Visit Hematology [place] [address] Markel Borjas MD [facility] [place] [address] 03/01/2025 4:15 PM EDT Office Visit Dermatology at [address] [address] Marek Bonilla MD [address] [address] [place] [address] documented as of this encounter Visit Diagnoses Not on filedocumented in this encounter Care Teams Recreation Therapy Director Relationship Specialty Start Date End Date Deborah Quiroga APRN PCP - General Family Medicine 03/24/16 02/04/23 documented as of this encounter
--- OUTSIDE RECORDS SUMMARY | 2024-05-04 14:11 | XMS_ITS | Encounter Summary ---
[place] [address] Care Team Providers Care Textile Worker Name Role Phone JunaidDeborah APRN Primary Care Provider [phone] Reason for Visit * Reason Comments Follow-up Encounter Details Date Type Department Care Team (Late st Contact Info) Description 01/10/2021 4:30 PM EDT Office Visit Dermatology at [place] [address] [facility] [place] [phone] Marek Bonilla MD [address] [facility] [place] [facility] DERMATOLOGY [place], [place] [phone] Rosacea Social History Tobacco Use Types Packs/Day [...] cutaneous and ocular 2. Previously told by pit laborer that she had corneal tears from [...] 3 refills. Will call this in her [facility] pharmacy in [place] 3. Continue metronidazole 0.75% gel applying once [...] [facility] Hematology Oncology [address] [place] [address] 05/12/2024 10:00 AM EDT Office Visit [place] [address] Markel Borjas MD [facility] [address] [place] [address] 03/01/2025 4:15 PM EDT Office Visit Dermatology at [place] [address] [facility] [place] [address] Marek Bonilla MD [address] [facility] [address], [place] [address] documented as of this encounter Visit Diagnoses Diagnosis Rosacea documented in this encounter Care Teams Textile Worker Relationship Specialty Start Date End Date Deborah Quiroga, ANURAG PCP - General Family Medicine 03/24/16 02/04/23 documented as of this encounter
--- OUTSIDE RECORDS SUMMARY | 2024-05-04 14:11 | XMS_ITS | Encounter Summary ---
[place] [address] Care Team Providers Care Electrical Power Engineer Name Role Phone Junaid, Deborah Shields APRN Primary Care Provider [phone] Encounter Details Date Type Department Care Team (Late st Contact Info) Description 10/20/2016 11:20 AM EDT Office [place] [phone] Alirio Esparza MD S/P AVR Social History [...] all of her postoperative tests done at [facility]. Her echo shows a well-seated valve. Her EF, for some reason, was read as in the 45% to 50% range. She had a normal EF to start. I think that will need to be repeated at [facility]. She has no perivalve leak. Her [...] should continue to see Dr. Burrell, her etiquette coach at [facility]. cc: Dr. Burrell documented in this encounter Plan of Treatment Upcoming Encounters Date Type Department Care Team (Late st Contact Info) Description 05/12/2024 9:00 AM EDT Laboratory Appointment Lab at [facility] Hematology Oncology [address] [place] [address] 05/12/2024 10:00 AM EDT Office Visit [place]ology [place] [address] Markel Borjas MD [facility] [place] [address] 03/01/2025 4:15 PM EDT Office Visit Dermatology at [place] [address] [place] [address] Marek Bonilla MD [address], [place] [address] documented as of this encounter Visit Diagnoses Diagnosis S/P AVR Heart valve replaced by other means documented in this encounter Care Teams Electrical Power Engineer Relationship Specialty Start Date End Date Deborah Quiroga APRN PCP - General Family Medicine 03/24/16 02/04/23 documented as of this encounter
--- OUTSIDE RECORDS SUMMARY | 2024-05-04 14:11 | XMS_ITS | Encounter Summary ---
Author Organization [facility] Address [facility] [place] [address] Care Team Providers Care Major Sales Associate Name Role Phone Deborah Quiroga APRN Primary Care Provider [phone] Encounter Details Date Type Department Care Team (Late st Contact Info) Description 06/18/2017 11:00 AM EST Office Visit Hematology [place] [address] Markel Borjas MD [facility] [address] [place] [address] Neutropenia, unspecified type Social History Tobacco Use [...] 06/18/2017 11:00 AM EST Hematology Outpatient Clinic [facility] Hematology Outpatient Consult Note CC: [...] TOUCH PREP, CLOT SECTION, CORE ??BIOPSY); [OSR# [id number], COLLECTED 06/23/2016, 19 SLIDES]: ?1. ??Normocellular marrow [...] a clonal lymphoproliferative or myeloproliferative disorder (OSR# [id number]) Chromosome analysis on the marrow aspirate revealed [...] working the same job and participating in [employer]. Past Medical/Surgical History: 1. Leukopenia -element of neutropenia, as noted above 2. Aortic Stenosis -severe -AVR surgery 3. Hypercholesterolemia 4. Depression 5. Hypertension 6. 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 Extremities: No edema. Labs: Hgb= 13 Usrg=971 ANC= 0.6 Imaging As above - reviewed [...] [facility] [place] [address] [place] [address] 05/12/2024 10:00 AM EDT Office Visit [place]ematology [place] [address] Markel Borjas MD [facility] [address] [place] [address] 03/01/2025 4:15 PM EDT Office Visit Dermatology at [place] [address] [place] [address] Marek Bonilla MD [address], [place] [address] documented as of this encounter Visit Diagnoses Diagnosis Neutropenia, unspecified type documented in this encounter Care Teams Major Sales Associate Relationship Specialty Start Date End Date Deborah Quiroga APRN PCP - General Family Medicine 03/24/16 02/04/23 documented as of this encounter
--- OUTSIDE RECORDS SUMMARY | 2024-05-04 14:11 | XMS_ITS | Encounter Summary ---
Author Organization [facility] Address [facility] [place] [address] Care Team Providers Care Accident Report Clerk Name Role Phone Deborah Quiroga ANURAG Primary Care Provider [phone] Encounter Details Date Type Department Care Team (Late Contact Info) Description 07/21/2017 Orders Only Hematology [place] [phone] Alexandrea Greenwood RN Other neutropenia Social History [...] [facility] [place] On[place] [address] [place] [address] 05/12/2024 10:00 AM EDT Office Visit Hematology [place] [phone] Markel Borjas MD [facility] HEMATOLOGY [place] [address] 03/01/2025 4:15 PM EDT Office Visit Dermatology at [address] [address] Marek Bonilla MD [address], [place] [address] documented as of this encounter Visit Diagnoses Diagnosis Other neutropenia documented in this encounter Care Teams Accident Report Clerk Relationship Specialty Start Date End Date Deborah Quiroga APRN PCP - General Family Medicine 03/24/16 02/04/23 documented as of this encounter
--- OUTSIDE RECORDS SUMMARY | 2024-05-04 14:11 | XMS_ITS | Encounter Summary ---
Author Organization [facility] Address [facility] [place] [address] Care Team Providers Care Director Of Student Services Name Role Phone Deborah Quiroga APRN Primary Care Provider [phone] Encounter Details Date Type Department Care Team (Late st Contact Info) Description 12/04/2016 External Results Hematology [place] [phone] Teresa Dodson RN Social History Tobacco Use [...] [facility] [place] [address] [place] [address] 05/12/2024 10:00 AM EDT Office Visit Hematology [place] [phone] Markel Borjas MD [facility] [place] [address] 03/01/2025 4:15 PM EDT Office Visit Dermatology at [address] [phone] Marek Bonilla MD [address], [place] [address] documented as of this encounter Procedures Procedure Name Priority Date/Time Associated Diagnosis Comments CBC (WITH DIFF) Routine 12/03/2016 11:35 AM EDT COMPREHENSIVE METABOLIC PANEL Routine 12/03/2016 11:35 AM EDT documented in this encounter Results * (ABNORMAL) Comprehensive metabolic panel (non-fasting) (12/03/2016 11:35 AM EDT) Glucose 85(Floor Installer al Lab) Blood Urea Nitrogen 11(Floor Installer al Lab) Creatinine 0.93(Exte rnal Lab) Sodium 140(Exter nal Lab) Potassium 4.2(Exter nal Lab) Chloride 104(Exter nal Lab) Calcium 10.0(Exte rnal Lab) Protein, Total 8.1(Exter nal Lab) Albumin 3.5(Exter nal Lab) Bilirubin, Total 0.25(Exte rnal Lab) Alkaline Phosphatase 96(Floor Installer al Lab) Aspartate Aminotransferase 18(Floor Installer al Lab) Alanine Aminotransferase 21(Floor Installer al Lab) Blood specimen (specimen) 12/03/2016 11:35 AM EDT Historical Provider CHEMISTRY ORDERAB LES * (ABNORMAL) CBC (with Diff) (12/03/2016 11:35 AM EDT) White Blood Cell 1.61(EXTER NAL/ABN) 4.4 - 10.8 Hemoglobin 13.0(Exter nal Lab) Hematocrit 39.8(Exter nal Lab) Platelet 248(Floor Installer al Lab) Neutrophil Absolute (ANC) - Automated 0.5(OSTEOPATHIC NEUROLOGIST AL/ABN) Blood specimen (specimen) 12/03/2016 11:35 AM EDT Historical Provider HEMATOLOGY ORDERA BLES documented in this encounter Visit Diagnoses Not on filedocumented in this encounter Care Teams Director Of Student Services Relationship Specialty Start Date End Date Deborah uQiroga, ANURAG PCP - General Family Medicine 03/24/16 02/04/23 documented as of this encounter
--- OUTSIDE RECORDS SUMMARY | 2024-05-04 14:11 | XMS_ITS | Encounter Summary ---
Author Organization [facility] [place] [address] Care Team Providers Care Filter Helper Name Role Phone Deborah Quiroga APRN Primary Care Provider [phone] Encounter Details Date Type Department Care Team (Late st Contact Info) Description 06/05/2021 Interpretation Only [address] [address] Deborah Quiroga APRN [address] [phone] Social History Tobacco Use Types Packs/Day Years [...] [facility] Hematology Oncology [address] [place] [address] 05/12/2024 10:00 AM EDT Office Visit Hematology [place] [address] Markel Borjas MD [facility] [address] [place] [address] 03/01/2025 4:15 PM EDT Office Visit Dermatology at [place] [address] [place] [phone] Marek Bonilla MD [address], [place] [address] documented as of this encounter Procedures Procedure Name Priority Date/Time Associated Diagnosis Comments MAMMO SCREENING CAD BILATERAL Routine 06/05/2021 11:42 AM EDT documented in this encounter Results * Mammo Screening Cad Bilateral (06/05/2021 11:42 AM EDT) PT CLASS O DH RAD ADMITDTTM DH RAD PT DH RAD INFO [phone]^EV ERETT^DEBORAH^E DH RAD EXAM DESC MADDSC^SCREEN MAMMO [...] have questions please contact the health home health care coordinator that requested your imaging first. [...] who have questions please contactthe health home health care coordinator that requested your imaging first. Deborah Quiroga APRN IMG MAMMO ORDERABLE S documented in this encounter Visit Diagnoses Not on filedocumented in this encounter Care Teams Filter Helper Relationship Specialty Start Date End Date Deborah Quiroga APRN PCP - General Family Medicine 03/24/16 02/04/23 documented as of this encounter
--- OUTSIDE RECORDS SUMMARY | 2024-05-04 14:12 | XMS_ITS | Encounter Summary ---
[place] [address] Care Team Providers Care Launch Leader Name Role Phone Ashley Quirogazac Shields APRN Primary Care Provider [phone] Reason for Visit * Auth/Cert Specialty Diagnoses / Procedures Referred By Crispin t Referred To Contact Diagnoses Aortic stenosis Procedures PRO REPLACE AORT VALV, PROSTH VALV @REPLACE AORTIC VALVE, OPEN, W\CPB, W\PROSTHETIC VALVE (WRVU 41.32) Referral ID Status Reason Start Date Expiration Date Visits Re quested Visits Authorized [id number] 1 1 Encounter Details Date Type Department Care Team (Late st Contact Info) Description 09/21/2016 7:30 AM EST - 09/21/2016 12:04 PM EST Surgery [place] [address] Alirio Esparza MD @REPLACE AORTIC VALVE, OPEN, [...] Patient Age: 61 y.o. Birthdate: 1955 Language: Greenlandic Race: White Ethnicity: Not nor Admit Date: 09/21/2016 Discharge Date: 09/25/2016 Attending Physician: Alirio Esparza MD Follow-up Recommendations for Providers: Please continue routine management of cardiovascular risk factors including blood pressure, lipids,glucose, etc. Please note any changes to medications. Patient to follow-up with PCP, Deborah Quiroga APRN, in 1-2 weeks. Patient to follow-up with Admin Dir, Dr. Antelmo Burrell, in two weeks. Patient to follow-up with Cardiac Surgery, Dr. Alirio Esparza, to be scheduled for before 10/19/2016, with CXR, EKG, and Echo. Inpatient Provider Contact Information: [facility] Section of Cardiac Surgery [facility] [address] FAX [phone] Discharge Diagnoses (Hospital Problems) Primary Diagnoses: Secondary [...] 41.32) performed by Alirio Esparza MD at [facility] [...] Hospital Course: Purnima Thacker was admitted to [facility] on 09/21/2016 via the Same Day [...] Alirio Esparza and/or the Cardiac Surgery Physician Manager Treasury Team may be reached at . Antibiotic prophylaxis: You will need to take antibiotics prior to many invasive tests and treatments, such as dental cleaning, which should be done every 6 months. Your primary care physician or your dentist can prescribe this medication. Please refer to the card with the [place] Heart Association Guidelines for more information. You have been provided with 3 copies of this card. Keep one for your self. Give one to your primary care physician and one to your dentist. Please refer to the [place] Heart Association Guidelines for more information. [...] Dr. Alirio Jones. You may use a [place] Track or treadmill but avoid any pulling [...] friends, go to a movie, go to roman catholic, etc. Heavy activities: No hunting, skiing, [...] should resume a low fat, low cholesterol, [place] Heart Association Diet. Driving: No driving until [...] the outpatient Phase 2 Cardiac Rehabilitation at [facility]. The patient agrees to a referral to this program. The referral will be sent at discharge and the patient should be contacted by the program within 1- 2 weeks from discharge. Future Appointments and Orders Future Appointments Provider Department Dept Phone 11/20/2016 11:30 AM Markel Borjas MD [facility] [phone] Future Orders Complete By Expires Echocardiogram Transthoracic([facility]) [LWV129 Custom] 10/18/2016 (Approximate) 09/18/2017 Process Instructions: If the Echocardiogram is to be PERFORMED in a DH location other than [place]--STOP and order [id number], Echocardiogram South/External. Scheduling Instructions: Questions: Is a Bubble Study requested?: No Does the patient have Congenital Heart Disease?: No Does patient require sedation?: None GA rationale: Should this service be billed to the research sponsor?: EKG 12 Lead [EKG1 Custom] 10/18/2016 (Approximate) 09/25/2017 Process Instructions: Scheduling Instructions: Questions: Which DH location will this be performed?: [place] Is a rhythm strip needed?: No If EKG Reason is Pre-op Evaluation, indicate diagnosis for surgery.: Should this service be billed to the research sponsor?: XR Chest PA & Lateral (Generic) [00977 [id number] Custom] 10/18/2016 (Approximate) 09/25/2017 Process Instructions: Scheduling Instructions: Questions: Where will study be performed?: [facility]- Radiology Portable exam?: No Reason for exam and clinical history: s/p AVReplacement, patch annuloplasty 1 month f/u Other pertinent information: Stat read required?: Date of injury if applicable: Requested Time: Referral to Cardiac Rehab [TGB927 Custom] As directed Process Instructions: If no progress note charted, please enter Clinical details in comments. Scheduling Instructions: Questions: My question or request is: s/p AVR. Cardiac rehab at [facility] Referral to Home Health - at DISCHARGE [DGP8155 CPT(R)] As directed Process Instructions: Scheduling Instructions: Comments: DOCUMENTATION FOR VNA SERVICES (INCLUDING THOSE PATIENTS WITH MEDICARE COVERAGE REQUIRING HOME VNA SERVICES AND/OR HOSPICE SERVICES) PATIENT'S LOCATION: Purnimakary Gallego[address] [address] (home) No relevant phone numbers on file. Family Law Paralegal's Name: self In discussion with the attending physician, it is certified that this patient is under their care and that they, or a Nurse Practitioner, or Physician Manager Treasury who is working directly with them, hada [...] as follows: HOME HEALTH AGENCY: [facility] PHONE: [phone] FAX: [phone] RN orders: Cardiopulmonary assessment, incisional assessment, assess [...] issues please call the Cardiac SurgeryOffice at [phone] FOR MEDICARE ONLY: In discussion with the [...] and contact information: [facility] Patient location post discharge: home What services are requested: Registered Nurse Physical Therapy Occupational Therapy Start date: Responsible MD post discharge contact info: Arrangements for VNA/home care: As above. VN RN OR PCP TO PLEASE REMOVE CHEST TUBE SUTURES ON OR AFTER 09/30/16 Signed: Crispin Aranda PA-C 09/25/2016 [facility] Section of Cardiac Surgery [facility] [address] FAX [phone] Date: 09/25/2016 CC: ANURAG Alford Caryn E, APRN [address] [place] [address] documented in this encounter Discharge Instructions * [...] Alirio Esparza and/or the Cardiac Surgery Physician Manager Treasury Team may be reached at . Antibiotic prophylaxis: You will need to take antibiotics prior to many invasive tests and treatments, such as dental cleaning, which should be done every 6 months. Your primary care physician or your dentist can prescribe this medication. Please refer to the card with the [place] Heart Association Guidelines for more information. You have been provided with 3 copies of this card. Keep one for your self. Give one to your primary care physician and one to your dentist. Please refer to the [place] Heart Association Guidelines for more information. [...] Dr. Alirio Jones. You may use a [place] Track or treadmill but avoid any pulling [...] friends, go to a movie, go to roman catholic, etc. Heavy activities: No hunting, skiing, [...] should resume a low fat, low cholesterol, [place] Heart Association Diet. Driving: No driving until [...] the outpatient Phase 2 Cardiac Rehabilitation at [facility]. The patient agrees to a [...] PM EST Cardiac Surgery Progress Note: ID: [id number] S/p AVR, patch aortoplasty POD#2. PMH of [...] Gas) No results found for: PHART, PO2ART, LOQ7OFC Assessment/Plan: TPW out this am. (+) BM. [...] Signed: Crispin Aranda PA-C 09/24/2016 Team pager: [phone]; [phone] after 5pm [facility] Section of Cardiac Surgery * Leonor Henson S, JUNCTION MAKER - 09/23/2016 10:48 AM EST Cardiac Surgery Progress Note: ID: [id number] s/p AVR, patch aortoplasty POD#2. PMH of [...] Gas) No results found for: PHART, PO2ART, CTN5KVB Assessment/Plan: s/p AVR, patch aortoplasty POD#2. PMH of Neutropenia, HLD, HTN, Depression, obesity, . Transferred from [facility] yesterday and doing well. Pathway. Will [...] Surgeon on rounds. Signed: Leonor Henson APRN [facility] Section of Cardiac Surgery Date: 09/23/2016 * Nico Palacios PA - 09/22/2016 9:56 AM EST Cardiac Surgery Progress Note: ID: [id number] s/p AVR, patch aortoplasty POD#1. PMH of [...] NT, ND, soft. Ext: Moves all extremities. Kenney, well perfused. Incisions: C/D/I Tubes/Lines/Drains: PIV, richi, [...] Attending Surgeon on rounds. Signed: EKATERINA KIM [facility] Section of Cardiac Surgery Date: 09/22/2016 [...] left pleural effusion. T/L/D Al ETT CVL [place] CT Pacing wires ASSESSMENT, MANAGEMENT, and DECISION [...] Outcome (s) achieved Date Met: 09/25/16 09/25/16 0836 Coping/Psychosocial Plan Of Care Reviewed With patient [...] health, home with outpatient services Lalitha Cohen [facility] Pager: [phone] Inpatient Physical Therapy Patient status, treatment interventions, and goals discussed with student. I am in agreement with all details and associated flowsheet rows as documented and was present for all aspects of the patient treatment session. Nery Jaramillo, CANDY Pager [phone] Problem: Acute Rehab Services Goal & Intervention Plan Goal: Bed Mobility Goal Stand Alone Therapy Goal Outcome: Ongoing (Interventions Implemented as Appropriate) 09/22/16 1611 09/25/16 0947 Bed Mobility Goal Bed Mobility Goal, Time to Achieve 4 days -- Bed Mobility Goal, Activity Type scoot/bridge;supine to sit/sit to supine -- Bed Mobility Goal, [place] Level independent -- Bed Mobility Goal, Additional [...] Achieve 4 days -- Gait Training Goal, [place] Level independent -- Gait Training Goal, Distance [...] assist, home with home health [facility] Pager: [phone] Inpatient Physical Therapy Patient status, treatment interventions, and goals discussed with student. I am in agreement with all details and associated flowsheet rows as documented and was present for all aspects of the patient treatment session. Nery Jaramillo, PROMOTIONS SPECIALIST Pager [phone] Problem: Acute Rehab Services Goal & Intervention Plan Goal: Bed Mobility Goal Stand Alone Therapy Goal Outcome: Ongoing (Interventions Implemented as Appropriate) 09/22/16161009/23/161411 Bed Mobility Goal Bed Mobility Goal, Time to Achieve 4 days -- Bed Mobility Goal, Activity Type scoot/bridge;supine to sit/sit to supine -- Bed Mobility Goal, [place] Level independent -- Bed Mobility Goal, Additional [...] Achieve 4 days -- Gait Training Goal, [place] Level independent -- Gait Training Goal, Distance [...] days -- Transfer Training Goal, Activity Type ioc-zm-cttvc/rebry-me-jhs;byz-qz-ntzlx/nedqs-of-tgb -- Transfer Train Goal, [place] Level independent -- Transfer Training Goal, Additional Goal abides sternal precautions -- Transfer Training Goal, Outcome -- goal met * Consult Note - Jana Crenshaw RN - 09/23/2016 9:41 AM EST [facility] CARDIAC REHABILITATION Purnima Thacker was seen today regarding participation in the outpatient Phase 2 Cardiac Rehabilitation at [facility]. The patient agrees to a [...] Another Service: (cardiac rehab) NICOLE HERNANDEZ, PT Pager:[phone] Inpatient Physical Therapy Problem: Acute Rehab Services Goal & Intervention Plan Goal: Bed Mobility Goal Stand Alone Therapy Goal Outcome: Ongoing (Interventions Implemented as Appropriate) 09/22/161610 Bed Mobility Goal Bed Mobility Goal, Time to Achieve 4 days Bed Mobility Goal, Activity Type scoot/bridge;supine to sit/sit to supine Bed Mobility Goal, [place] Level independent Bed Mobility Goal, Additional Goal able to abide sternal precautions during transfers Goal: Gait Training Goal Stand Alone Therapy Goal Outcome: Ongoing (Interventions Implemented as Appropriate) 09/22/161610 Gait Training Goal Gait Training Goal, Date Established 09/22/16 Gait Training Goal, Time to Achieve 4 days Gait Training Goal, [place] Level independent Gait Training Goal, Distance to Achieve ascend and descends 2 steps independently Goal: Goal Transfer Training Stand Alone Therapy Goal Outcome: Ongoing (Interventions Implemented as Appropriate) 09/22/161610 Goal Transfer Training Transfer Training Goal, Time to Achieve 4 days Transfer Training Goal, Activity Type wli-xj-jibpb/xhetc-rq-tfr;syg-ge-topzh/aqpaj-hx-kod Transfer Train Goal, [place] Level independent Transfer Training Goal, Additional Goal [...] of completing AD's at home, chooses her rrpdvm-qo-tbc, Martha Thacker (home) for her DPOAH, 2nd choice in friend, Nitesh Rad, [place], [place] Current Coping/Education/Information Needs: patient sitting up [...] close by, Rashad & Raymond, and her szbdeb-xa-acl Martha Thacker who she has chosen to be her DPOAH. Also has a friend Nitesh Leroy who lives in [place], [place], also her DPOAH choice. Behavioral Health History: none on file in e[facility] Substance Use/Abuse: none on file in [facility] Other Pertinent/Service Specific Information: none Health/Prescription Coverage: Primary Insurance: [employer] Secondary Insurance: none Prescription Coverage: yes, per patient no issues Preferred Pharmacy: ?? Other: none Primary Care Provider: Deborah Quiroga, JUNCTION MAKER [phone] Patient/Caregiver Goals of Treatment: per medical team recommendations at discharge for CT surgery Potential Needs for Transition of Care: Rehab/SNF: TBD Home Health: TBD DME: no Dialysis: no Community Resources: non3 Transportation: ride home with a friend Other: none Anticipated Barriers to Discharge/Special Considerations: none anticipated at this time Plan: patient will need VNA services at discharge. The patient/security representative has been provided a list of Home Health Agencies/DME vendors which servetheir preferred geographic area. A letter describing our affiliations was reviewed with them and they were educated about their right to choose where referrals are placed. Patient requests referral to: [facility] [employer] PHONE: [phone] FAX: [phone] Expected date of discharge: Fri/Sat? CM called VNA to confirm referral, talked with VALDO Bunn/intake who stated she was familiar w/patient & would monitor her progress through curaspan. Referral routed to the Events Administrative Assistant for matching with agency/vendor and to provide any required information. A member of the Care Management team will continue to monitor progress, follow for continuity of care and assist with transition of care planning. Amanda Moreno RN Pager: [phone] * Op Note - Alirio Esparza MD - 09/21/2016 12:53 PM EST 09/23/2016 Purnima Thacker [id number] Preoperative Diagnosis: Symptomatic aortic stenosis Postoperative Diagnosis: Symptomatic aortic stenosis Procedure: Aortic valve replacement: Bovine Pericardial 25 mm Surgeon: Alirio Esparza M.D. Manager Treasury: Philip BALL Anesthesia: General endotracheal anesthesia Drains: [...] applied. The patient was transported to the [facility] on levo. All counts were correct. [...] Operative Note Patient Name: Purnima Thacker : [id number] MR#: [id number] Case Date: 09/21/2016 Surgeon: Surgeon(s) and Role: * Alirio Esparza MD - Primary * Nico Palacios PA - Physician Manager Treasury Preoperative diagnosis: Postoperative diagnosis: Procedure(s) (LRB): @REPLACE [facility] [address] [place] [address] 05/12/2024 10:00 AM EDT Office Visit [place]ology [place] [address] Markel Borjas MD [facility] [address] HEMATOLOGY [place] [address] 03/01/2025 4:15 PM EDT Office Visit Dermatology at [place] [address] [place] [address] Marek Bonilla MD [address], [place] [address] Scheduled Orders Name Type Priority Associated Diagnoses [...] IMPLANTABLE DEVICES SCAN 09/26/2016 12:00 AM EST PHOTOGRAPHER MOTION PICTURE SCAN 09/26/2016 12:00 AM EST POTASSIUM Routine [...] SCAN EXT O RDR/RSLT * SCAN DOC: PHOTOGRAPHER MOTION PICTURE (09/26/2016 12:00 AM EST) Anatomical Region Laterality [...] CHEMISTRY ORDERABLE S [facility] [place] [address] * (ABNORMAL) Differential, Automated (09/24/2016 9:56 AM EST) Pathologist [facility] Neutrophil % 76.8 % [facility] Neutrophil Absolute 7.79(H) 1.70 - 6.10 x10(3)/mc L [facility] Lymph % 11.1 % [facility] Lymphocytes Abs 1.1 0.9 - 3.2 x10(3)/mc L [facility] Monocyte % 8.5 % [facility] Monocyte Abs 0.9 0.3 - 0.9 x10(3)/mc L [facility] Eos % 0.5 % [facility] Eosinophils Abs 0.0 0.0 - 0.4 x10(3)/mc L [facility] Basophil % 0.2 % [facility] Baso Absolute 0.0 [...] HEMATOLOGY ORDERABL ES [facility] [place] [address] * (ABNORMAL) Hemogram (09/24/2016 9:56 AM EST) [...] Standard Deviation 45.0 37.0 - 46.0 fL [facility] RDW coefficient of variation 12.6 11.5 - 14.1 % [facility] Mean Platelet Volume 9.4 7.6 - 12.9 fL [facility] NRBC% auto 1.1 % [facility] NRBC Absolute 0.110(H) 0.000 - 0.000 x10(3)/mc L [facility] Blood specimen (specimen) 09/24/2016 9:56 AM EST 09/24/2016 10:04 AM EST Narrative Resulting Agency Comment Spec In Lab Alirio Esparza MD HEMATOLOGY ORDERABL ES [facility] [place] [address] * (ABNORMAL) Basic Metabolic Panel (non-fasting) (09/24/2016 [...] the following links into your internet browser. [email or web address] Blood specimen (specimen) 09/24/2016 9:56 AM EST 09/24/2016 10:04 AM EST Narrative Resulting Agency Comment Spec In Lab Alirio Esparza MD CHEMISTRY ORDERABLE S [facility] [place] [address] * XR Chest PA & Lateral (Generic) [...] CHEMISTRY ORDERABLE S [facility] [place] [address] * POCT Glucose (09/22/2016 8:17 AM EST) Glucose, POC 131 65 - 199 mg/dL [facility] Comment: Supplemental ranges: <140 mg/dL before meals <180 mg/dL all other times of the day Blood specimen (specimen) 09/22/2016 8:17 AM EST 09/22/2016 8:17 AM EST Alirio Esparza MD POINT OF CARE TEST ORDERABLES [facility] [place] [address] * POCT Glucose (09/22/2016 4:01 AM EST) Glucose, POC 135 65 - 199 mg/dL [facility] Comment: Supplemental ranges: <140 mg/dL before meals <180 mg/dL all other times of the day Blood specimen (specimen) 09/22/2016 4:01 AM EST 09/22/2016 4:01 AM EST Alirio Esparza MD POINT OF CARE TEST ORDERABLES [facility] [place] [address] * Scan, Peripheral Blood (09/22/2016 4:00 AM EST) Plat estimate Normal [facility] RBC Morphology Abnormal [facility] Macrocyte 1-5 /HPF [facility] Plat, Giant Less than 1 /HPF [facility] Blood specimen (specimen) 09/22/2016 4:00 AM EST 09/22/2016 4:34 AM EST Narrative Resulting Agency Comment Spec In Lab Alirio Esparza MD HEMATOLOGY ORDERABL ES Performing Organization Address [facility]/ZIP Co de Phone Number [facility] [place] [address] * Electrolytes panel (09/22/2016 4:00 AM EST) Pathologist [facility] Sodium 145 135 - 145 mmol/L [facility] [...] MD CHEMISTRY ORDERABLE S Performing Organization Address City/[facility]/ZIP Co de Phone Number [facility] [place] [address] * (ABNORMAL) Differential, Automated (09/22/2016 4:00 AM EST) Neutrophil % 70.9 % [facility] Neutrophil Absolute 5.33 1.70 - 6.10 x10(3)/mc L [facility] Lymph % 9.1 % [facility] Lymphocytes Abs 0.7(L) 0.9 - 3.2 x10(3)/[facility] Monocyte % 18.0 % [facility] Monocyte Abs 1.4(H) 0.3 - 0.9 x10(3)/[facility] Eos % 0.0 % [facility] Eosinophils Abs 0.0 0.0 - 0.4 x10(3)/[facility] Basophil % 0.1 % [facility] Baso Absolute 0.0 0.0 - 0.1 x10(3)/[facility] Immature Gran % 1.90 % [facility] Comment: Immature granulocytes(IG's)percentage and absolute count will include metamyelocytes, myelocytes, and promyelocytes. Blood smears from CBCs yielding IG's will be scanned manually for concordance. If this scan disagrees with the automated IG or if promyelocytes are noted, a manual differential will be performed. Immature Gran Absolute 0.14(H) 0.00 - 0.04 x10(3)/[facility] Blood specimen (specimen) 09/22/2016 4:00 AM EST 09/22/2016 4:34 AM EST Narrative Resulting Agency Comment Spec In Lab Alirio Esparza MD HEMATOLOGY ORDERABL ES [facility] [place] [address] * (ABNORMAL) Hemogram (09/22/2016 4:00 AM EST) White Blood Cell 7.5 4.0 - 9.5 x10(3)/[facility] Red Blood Cell 2.93(L) 4.00 - 5.21 x10(6)/[facility] Hemoglobin 9.2(L) 11.7 - [...] [facility] NRBC% auto 0.3 % [facility] NRBC Absolute 0.020(H) 0.000 - 0.000 x10(3)/mc L [facility] Blood specimen (specimen) 09/22/2016 4:00 AM EST 09/22/2016 4:34 AM EST Narrative Resulting Agency Comment Spec In Lab Alirio Esparza MD HEMATOLOGY ORDERABL ES Performing Organization Address City/State/[facility] Co de Phone Number [facility] [place] [address] * (ABNORMAL) Cardiac Enzymes (09/22/2016 4:00 AM [...] consensus document of the Joint Society of Cardiology/[place] College of Cardiology Committee for the redefinition of myocardial infarction. ??Journal of the [place] College of Cardiology 2000; 36: 959-969] Creatine Kinase 338(H) 0 - 160 unit/L [facility] Blood specimen (specimen) 09/22/2016 4:00 AM EST 09/22/2016 4:34 AM EST Narrative Resulting Agency Comment Spec In Lab Alirio Esparza MD CHEMISTRY ORDERABLE S Performing Organization Address [facility] de Phone Number [facility] [place] [address] * (ABNORMAL) Glucose, fasting (09/22/2016 4:00 AM [...] of Diabetes Mellitus, Position Statement from the [place] Diabetes Association. ??Diabetes Care, Volume 33, Supplement 1, Aug 2009 Blood specimen (specimen) 09/22/2016 4:00 AM EST 09/22/2016 4:34 AM EST Narrative Resulting Agency Comment Spec In Lab Alirio Esparza MD CHEMISTRY ORDERABLE S Performing Organization Address [facility] Co de Phone Number [facility] [place] [address] * (ABNORMAL) Creatinine (09/22/2016 4:00 AM EST) [facility] Creatinine 0.69(L) 0.70 - 1.20 mg/dL [facility] [...] the following links into your internet browser. [email or web address] Blood specimen (specimen) 09/22/2016 4:00 AM EST 09/22/2016 4:34 AM EST Narrative Resulting Agency Comment Spec In Lab Alirio Esparza MD CHEMISTRY ORDERABLE S Performing Organization Address City/[facility] Co de Phone Number [facility] [place] [address] * BUN (09/22/2016 4:00 AM EST) [facility] Blood Urea Nitrogen 10 8 - 18 mg/dL [facility] Blood specimen (specimen) 09/22/2016 4:00 AM EST 09/22/2016 4:34 AM EST Narrative Resulting Agency Comment Spec In Lab Alirio Esparza MD CHEMISTRY ORDERABLE S Performing Organization Address [facility]/ZIP Co de Phone Number [facility] [place] [address] * POCT Glucose (09/21/2016 9:59 PM EST) Glucose, POC 146 65 - 199 mg/dL [facility] Comment: Supplemental ranges: <140 mg/dL before meals <180 mg/dL all other times of the day Blood specimen (specimen) 09/21/2016 9:59 PM EST 09/21/2016 9:59 PM EST Alirio Esparza MD POINT OF CARE TEST ORDERABLES Performing Organization Address City/[facility]/ZIP Co de Phone Number [facility] [place] [address] * POCT Glucose (09/21/2016 7:26 PM EST) Glucose, POC 152 65 - 199 mg/dL [facility] Comment: Supplemental ranges: <140 mg/dL before meals <180 mg/dL all other times of the day Blood specimen (specimen) 09/21/2016 7:26 PM EST 09/21/2016 7:26 PM EST Alirio Esparza MD POINT OF CARE TEST ORDERABLES Performing Organization Address [facility] Co de Phone Number [facility] [place] [address] * POCT Glucose (09/21/2016 6:00 PM EST) Glucose, POC 146 65 - 199 mg/dL [facility] Comment: Supplemental ranges: <140 mg/dL before meals <180 mg/dL all other times of the day Blood specimen (specimen) 09/21/2016 6:00 PM EST 09/21/2016 6:00 PM EST Alirio Esparza MD POINT OF CARE TEST ORDERABLES Performing Organization Address City/[facility] Co de Phone Number [facility] [place] [address] * (ABNORMAL) BLOOD GAS 2 ARTERIAL (09/21/2016 4:42 PM EST) [facility] pH, Arterial 7.35(L) 7.35 - 7.45 [facility] PCO2, Arterial 48(H) 35 - 45 mmHg [facility] PO2, Arterial 108(H) 85 - 104 mmHg [facility] Bicarbonate, Arterial 26.0 20.0 - 26.0 mmol/L [facility] Excess, Arterial 0.5 -3.0 - 3.0 [...] [facility] FIO2 Art 40 % [facility] PF Ratio Art 270 [facility] Blood specimen (specimen) 09/21/2016 4:42 PM EST 09/21/2016 4:42 PM EST Alirio Esparza MD POINT OF CARE TEST ORDERABLES Performing Organization Address [facility] Co de Phone Number [facility] [place] [address] * POCT Glucose (09/21/2016 4:07 PM EST) Pathologist [facility] Glucose, POC 150 65 - 199 mg/dL [facility] Comment: Supplemental ranges: <140 mg/dL before meals <180 mg/dL all other times of the day Blood specimen (specimen) 09/21/2016 4:07 PM EST 09/21/2016 4:07 PM EST Alirio Esparza MD POINT OF CARE TEST ORDERABLES Performing Organization Address [facility] de Phone Number [facility] [place] [address] * (ABNORMAL) Hemoglobin (09/21/2016 4:05 PM EST) [facility] Hemoglobin 9.9(L) 11.7 - 15.5 gm/dL [facility] Blood specimen (specimen) 09/21/2016 4:05 PM EST 09/21/2016 4:20 PM EST Narrative Resulting Agency Comment Spec In Lab Alirio Esparza MD HEMATOLOGY ORDERABL ES Performing Organization Address [facility] Phone Number [facility] [place] [address] * Potassium (09/21/2016 4:05 PM EST) [facility] Potassium 4.6 3.5 - 5.0 mmol/L HOLDEN [...] MD CHEMISTRY ORDERABLE S Performing Organization Address [facility] Co de Phone Number [facility] [place] [address] * POCT Glucose (09/21/2016 2:52 PM EST) Glucose, POC 117 65 - 199 mg/dL [facility] Comment: Supplemental ranges: <140 mg/dL before meals <180 mg/dL all other times of the day Blood specimen (specimen) 09/21/2016 2:52 PM EST 09/21/2016 2:52 PM EST Alirio Esparza MD POINT OF CARE TEST ORDERABLES Performing Organization Address [facility] Co de Phone Number [facility] [place] [address] * POCT Glucose (09/21/2016 1:51 PM EST) Glucose, POC 108 65 - 199 mg/dL [facility] Comment: Supplemental ranges: <140 mg/dL before meals <180 mg/dL all other times of the day Blood specimen (specimen) 09/21/2016 1:51 PM EST 09/21/2016 1:51 PM EST Alirio Esparza MD POINT OF CARE TEST ORDERABLES Performing Organization Address [facility] Co de Phone Number [facility] [place] [address] * POCT Glucose (09/21/2016 12:54 PM EST) Glucose, POC 128 65 - 199 mg/dL [facility] Comment: Supplemental ranges: <140 mg/dL before meals <180 mg/dL all other times of the day Blood specimen (specimen) 09/21/2016 12:54 PM EST 09/21/2016 12:54 PM EST Alirio Esparza MD POINT OF CARE TEST ORDERABLES [facility] [place] [address] * EKG 12 Lead (09/21/2016 12:26 PM EST) Ventricular rate 87 BPM MUSE SYSTEM Atrial Rate 87 BPM MUSE SYSTEM P-R Interval 256 ms MUSE SYSTEM QRS Duration 90 ms MUSE SYSTEM Q-T Interval 406 ms MUSE SYSTEM QTC Calculated (Bezet) 488 ms MUSE SYSTEM Calculated P [place] 24 degrees MUSE SYSTEM Calculated R [place] 21 degrees MUSE SYSTEM Calculated T [place] -5 degrees MUSE SYSTEM INTERPRETATION Sinus rhythm with 1st degree A-V block Nonspecific T wave abnormality Prolonged QT Abnormal ECG When compared with ECG of 19-MAY-2016 11:43, [place] interval has increased T wave inversion now [...] course of the esophagus and below the [id number]. There is a right IJ PA catheter [...] the course of theesophagus and below the [id number]. There is a right IJ PA catheter [...] [facility] FIO2 Art 100 % [facility] PF Ratio Art 356 [facility] Blood specimen (specimen) 09/21/2016 12:20 PM EST 09/21/2016 12:20 PM EST Alirio Esparza MD POINT OF CARE TEST ORDERABLES Performing Organization Address [facility] Phone Number [facility] [place] [address] * (ABNORMAL) BLOOD GAS 2 ARTERIAL (09/21/2016 [...] [facility] FIO2 Art 95 % [facility] Flow Art 0.7 LPM [facility] PF Ratio Art 313 [facility] Temp Art 36.7 Celsius [facility] Blood specimen (specimen) 09/21/2016 10:54 AM EST 09/21/2016 10:54 AM EST Alirio Esparza MD POINT OF CARE TEST ORDERABLES Performing Organization Address City/State/[facility] Co de Phone Number [facility] [place] [address] * Thrombin time (09/21/2016 10:50 AM EST) [...] ORDERABLE S Performing Organization Address [facility] de Phone Number [facility] [place] [address] * Fibrinogen (09/21/2016 10:50 AM EST) Fibrinogen [...] HEMATOLOGY ORDERABLE S Performing Organization Address [facility] de Phone Number [facility] [place] [address] * APTT (09/21/2016 10:50 AM EST) [facility] Partial Thromboplastin Time 32 25 - 35 [...] ORDERABLE S Performing Organization Address [facility] de Phone Number [facility] [place] [address] * (ABNORMAL) Prothrombin Time (09/21/2016 10:50 AM [...] HEMATOLOGY ORDERABLE S [facility] [place] [address] * (ABNORMAL) Hemogram (09/21/2016 10:50 AM EST) [...] [facility] NRBC% auto 0.1 % [facility] NRBC Absolute 0.020(H) 0.000 - 0.000 x10(3)/mc L [facility] Blood specimen (specimen) 09/21/2016 10:50 AM EST 09/21/2016 10:56 AM EST Narrative Resulting Agency Comment Spec In Lab Luis Enrique Quarles MD HEMATOLOGY ORDERABLE S Performing Organization Address [facility] de Phone Number [facility] [place] [address] * Prepare Platelets, Apheresis (09/21/2016 10:30 AM EST) Dispensed? Yes [facility] Blood specimen (specimen) 09/21/2016 10:30 AM EST 09/21/2016 10:28 AM EST Alirio Esparza MD BLOOD BANK PRODUCT ORDERABLES Performing Organization Address [facility] Phone Number [facility] [place] [address] * (ABNORMAL) BLOOD GAS 2 ARTERIAL (09/21/2016 10:05 AM EST) pH, Arterial 7.33(L) 7.35 - 7.45 [facility] PCO2, Arterial 54(Critic al) 35 - 45 mmHg [facility] Comment:Noted by fretted instrument repairer. PO2, Arterial 218(H) 85 - [...] [facility] Comment: Noted by fretted instrument repairer. Please note: Patients with WBC [...] [facility] Temp Art 37.0 Celsius [facility] Blood specimen (specimen) 09/21/2016 10:05 AM EST 09/21/2016 10:05 AM EST Alirio Esparza MD POINT OF CARE TEST ORDERABLES [facility] [place] [address] * (ABNORMAL) BLOOD GAS 2 ARTERIAL (09/21/2016 9:44 AM EST) pH, Arterial 7.22(Criti gabrielle) 7.35 - 7.45 [facility] Comment:Noted by fretted instrument repairer. PCO2, Arterial 70(Critica l) 35 - 45 mmHg [facility] Comment:Noted by fretted instrument repairer. PO2, Arterial 224(H) 85 - [...] CARE TEST ORDERABLES [facility] [place] [address] * (ABNORMAL) Hemoglobin (09/21/2016 9:42 AM EST) Hemoglobin 7.2(L) 11.7 - 15.5 gm/dL [facility] Blood specimen (specimen) 09/21/2016 9:42 AM EST 09/21/2016 9:51 AM EST Narrative Resulting Agency Comment Spec In Lab Alirio Esparza MD HEMATOLOGY ORDERABL ES Performing Organization Address [facility]/ZIP Co de Phone Number [facility] [place] [address] * Platelet count (09/21/2016 9:42 AM EST) Platelet 159 145 - 357 x10(3)/mc L [facility] Immature Plt % 1.6 0.0 - 7.4 % [facility] Comment: Limitation of the Immature Platelet Fraction (IPF)-May be less reliable when the platelet count is less than 09z354/uL due to statistical imprecision. The IPF value [...] in a decreased state of production. References: [employer] The Clinical Value of the Immature Platelet Fraction (IPF) in Cell Recovery Document Number 10-1143 12/2010 [employer] The Role of the Immature Platelet Fraction (IPF) in the Differential Diagnosis of Thrombocytopenia, Document MKT-10-1209 V05/07/15 P0514 Blood specimen (specimen) 09/21/2016 9:42 AM EST 09/21/2016 9:51 AM EST Narrative Resulting Agency Comment Spec In Lab Alirio Esparza MD HEMATOLOGY ORDERABL ES Performing Organization Address [facility] Co de Phone Number [facility] [place] [address] * (ABNORMAL) Hematocrit (09/21/2016 9:42 AM EST) [...] ORDERABL ES Performing Organization Address [facility] de Phone Number [facility] [place] [address] * Fibrinogen (09/21/2016 9:42 AM EST) Fibrinogen [...] ORDERABL ES Performing Organization Address [facility] Co de Phone Number [facility] [place] [address] * (ABNORMAL) BLOOD GAS 2 ARTERIAL (09/21/2016 [...] [facility] Temp Art 37.0 Celsius [facility] Blood specimen (specimen) 09/21/2016 9:10 AM EST 09/21/2016 9:10 AM EST Alirio Esparza MD POINT OF CARE TEST ORDERABLES [facility] [place] [address] * Surgical Pathology Report (09/21/2016 9:09 AM EST) Final Diagnosis [id number] ?Location: 3T The signing pathologist has (i) [...] AM EST Alirio Esparza MD PATHOLOGY/[place] [address] * Specimen to Pathology (surgical or derm) (09/21/2016 9:09 AM EST) AP Specimen 09/21/2016 9:09 AM EST 09/21/2016 9:09 AM EST Narrative [facility] - 09/21/2016 9:09 AM EST Specimen requisition ordered. ??Separate Pathology report to follow Alirio Esparza MD PATHOLOGY/CYTOLOGY ORDERABLES [facility] [place] [address] * (ABNORMAL) BLOOD GAS 2 ARTERIAL (09/21/2016 [...] CARE TEST ORDERABLES [facility] [place] [address] * (ABNORMAL) BLOOD GAS 2 ARTERIAL (09/21/2016 [...] [facility] FIO2 Art 95 % [facility] Flow Art 1.1 LPM [facility] PF Ratio Art 298 [facility] Temp Art 35.6 Celsius [facility] Blood specimen (specimen) 09/21/2016 8:18 AM EST 09/21/2016 8:18 AM EST Alirio Esparza MD POINT OF CARE TEST ORDERABLES [facility] [place] [address] * Prepare RBC (09/21/2016 7:05 AM EST) Dispensed? Yes [facility] Blood specimen (specimen) 09/21/2016 7:05 AM EST 09/21/2016 7:02 AM EST Alirio Esparza MD BLOOD BANK PRODUCT ORDERABLES Performing Organization Address City/[facility]/ZIP Co de Phone Number [facility] [place] [address] * POCT Glucose (09/21/2016 6:42 AM EST) Glucose, POC 104 65 - 199 mg/dL [facility] Comment: Supplemental ranges: <140 mg/dL before meals <180 mg/dL all other times of the day Blood specimen (specimen) 09/21/2016 6:42 AM EST 09/21/2016 6:42 AM EST Alirio Esparza MD POINT [place] [address] documented in this encounter Visit Diagnoses Not [...] dose on Wed09/21/16 at 1230, Until Discontinued, [place] teeth, Routine Given 09/25/2016 9:40 AM EST [...] Miguel RN) 0829 (See Alternative - Provider: Marke Barnes, VALDO) 0942 (See Alternative - Provider: [...] dose on Wed09/21/16 at 1230, Until Discontinued, [place] teeth, Routine 0900 (Not Given - Provider: [...] Routine documented in this encounter Care Teams Launch Leader Relationship Specialty Start Date End Date Deborah Quiroga APRN PCP - General Family Medicine 03/24/16 02/04/23 documented as of this encounter
--- OUTSIDE RECORDS SUMMARY | 2024-05-04 14:12 | XMS_ITS | Encounter Summary ---
[place] [address] Care Team Providers Care Drywall Hanger Framer Name Role Phone Deborah Quiroga ANURAG Primary Care Provider [phone] Reason for Visit * Reason Onset Date Comments Medical Care Coordination 07/17/2016 Encounter Details Date Type Department Care Team ([facility] Contact Info) Description 07/17/2016 Telephone Hematology [place] [phone] Alexandrea [place] RN Medical Care Coordination Social [...] 12:07 PM EST Message received from secretary of state: Injection/Infusion Referral Call placed to [phone]). Spoke w/ Pasquale. Services to be provided for pt are: Labs @ 10am ([facility]) & Neulasta @ 11am on 07/20/16, CBC only on 07/30/16 Pasquale confirmed they would provide services to pt and I left [facility] for pt to call for appt info. Pt demographics, office note, med list and orders faxed to [facility] & [facility] documented in this encounter Plan of Treatment Upcoming Encounters Date Type Department Care Team (Late st Contact Info) Description 05/12/2024 9:00 AM EDT Laboratory Appointment Lab at [facility] [place]ematology Oncology [address] [place] [address] 05/12/2024 10:00 AM EDT Office Visit Hematology [place] [address] Markel Borjas MD [facility] [address] HEMATOLOGY [place] [address] 03/01/2025 4:15 PM EDT Office Visit Dermatology at [place] [address] [place] [phone] Marek Bonilla MD [address], [place] [address] documented as of this encounter Visit Diagnoses Not on filedocumented in this encounter Care Teams Drywall Hanger Framer Relationship Specialty Start Date End Date Deborah Quiroga APRN PCP - General Family Medicine 03/24/16 02/04/23 documented as of this encounter
--- OUTSIDE RECORDS SUMMARY | 2024-05-04 14:12 | XMS_ITS | Encounter Summary ---
[place] [address] Care Team Providers Care Electrician Marine Name Role Phone Ashley Quirogan Cornelius ANURAG Primary Care Provider [phone] Reason for Visit * Reason Onset Date Comments Medical Care Coordination 09/14/2016 Encounter Details Date Type Department Care Team (Late st Contact Info) Description 09/14/2016 Telephone Hematology [place] [phone] Alexandrea [place] RN Medical Care Coordination Social [...] 09/14/2016 9:10 AM EST Message received from diesel service journeyman: Injection/Infusion Referral Call placed to [facility] Infusion Room Spoke charis Bragg. Services to be provided for pt are: Miles 09/16/16 Mahsa confirmed they would provide services to pt and would contact with appointment time. Pt aware to expect the phone call ??orders faxed to [phone]). documented in this encounter Plan of Treatment Upcoming Encounters Date Type Department Care Team (Late st Contact Info) Description 05/12/2024 9:00 AM EDT Laboratory Appointment Lab at [facility] Hematology Oncology [address] [place] [address] 05/12/2024 10:00 AM EDT Office Visit Hematology [place] [address] Markel Borjas MD [facility] [address] [address] HEMATOLOGY [place] [address] 03/01/2025 4:15 PM EDT Office Visit Dermatology at [place] [address] [place] [phone] Marek Bonilla MD [address], [place] [address] documented as of this encounter Visit Diagnoses Not on filedocumented in this encounter Care Teams Electrician Marine Relationship Specialty Start Date End Date Deborah Quiroga APRN PCP - General Family Medicine 03/24/16 02/04/23 documented as of this encounter
--- OUTSIDE RECORDS SUMMARY | 2024-05-04 14:12 | XMS_ITS | Encounter Summary ---
Author Organization [facility] Address [facility] [place] [address] Care Team Providers Care Golf Cart Attendant Name Role Phone Deborah Quiroga ANURAG Primary Care Provider [phone] Encounter Details Date Type Department Care Team (Late st Contact Info) Description 08/04/2016 External Results Hematology [place] [phone] Alexandrea [place] RN Neutropenia, unspecified type Social [...] [facility] Oncology [address] [place] [address] 05/12/2024 10:00 AM EDT Office Visit Hematology [place] [address] Markel Borjas MD [facility] HEMATOLOGY [place] [address] 03/01/2025 4:15 PM EDT Office Visit Dermatology at [address] [address] Marek Bonilla MD [address], [place] [address] documented as of this encounter Procedures Procedure [...] type documented in this encounter Care Teams Golf Cart Attendant Relationship Specialty Start Date End Date Deborah Quiroga APRN PCP - General Family Medicine 03/24/16 02/04/23 documented as of this encounter
--- OUTSIDE RECORDS SUMMARY | 2024-05-04 14:12 | XMS_ITS | Encounter Summary ---
[place] [address] Care Team Providers Care Oven Technician Name Role Phone JunaidDeborah APRN Primary Care Provider [phone] Reason for Visit * Reason Onset Date Comments Labs Only 09/16/2016 Encounter Details Date Type Department Care Team (Late st Contact Info) Description 09/16/2016 Telephone Hematology [place] [phone] Alexandrea [place], RN Labs Only Social History [...] 09/16/2016 11:09 AM EST Message received from social secretary: Purnima is having her Neulasta done today at [facility]. ??She is wondering if we want to do a CBC prior to the injection? [phone] Borjas: CBC is fine RN spoke with Swapna at [facility] who confirms they can draw CBC on pt today, RN faxed CBC w/diff to [facility] lab at [phone] RN relayed to pt that CBC ordered had been faxed to [facility], pt will have CBC drawn today prior to neulasta injection. documented in this encounter Plan of Treatment Upcoming Encounters Date Type Department Care Team (Late st Contact Info) Description 05/12/2024 9:00 AM EDT Laboratory Appointment Lab at [facility] Hematology Oncology [address] [place] [address] 05/12/2024 10:00 AM EDT Office Visit Hematology [place] [address] Markel Borjas MD [facility] [address] HEMATOLOGY [place] [address] 03/01/2025 4:15 PM EDT Office Visit Dermatology at [place] [address] [place] [phone] Marek Bonilla MD [address] [facility], [facility] [place] [address] documented as of this encounter Results * [...] type documented in this encounter Care Teams Oven Technician Relationship Specialty Start Date End Date Deborah Quiroga APRN PCP - General Family Medicine 03/24/16 02/04/23 documented as of this encounter
--- OUTSIDE RECORDS SUMMARY | 2024-05-04 14:12 | XMS_ITS | Encounter Summary ---
Author Organization [facility] Address [facility] [place] [address] Care Team Providers Care Counter Stacker Name Role Phone Ashley Quirogan Cornelius ANURAG Primary Care Provider [phone] Encounter Details Date Type Department Care Team (Late st Contact Info) Description 08/11/2016 Telephone Hematology [place] [phone] Markel Borjas MD [facility] [address] HEMATOLOGY [place] [address] Social History Tobacco Use Types Packs/Day Years [...] [facility] Hematology Oncology [address] [place] [address] 05/12/2024 10:00 AM EDT Office Visit Hematology [place] [address] Markel Borjas MD [facility] [address] HEMATOLOGY [place] [address] 03/01/2025 4:15 PM EDT Office Visit Dermatology at [place] [address] [place] [phone] Marek Bonilla MD [address], [place] [address] documented as of this encounter Visit Diagnoses Not on filedocumented in this encounter Care Teams Counter Stacker Relationship Specialty Start Date End Date Deborah Quiroga APRN PCP - General Family Medicine 03/24/16 02/04/23 documented as of this encounter
--- OUTSIDE RECORDS SUMMARY | 2024-05-04 14:12 | XMS_ITS | Encounter Summary ---
Author Organization [facility] [place] [address] Care Team Providers Care Instructional Developer Name Role Phone Ashley Quirogazac Shields APRN Primary Care Provider [phone] Encounter Details Date Type Department Care Team (Late st Contact Info) Description 07/03/2016 External Results Hematology [place] [phone] Matthew Cervantes, DO [address] [place] [phone] Social History Tobacco Use Types Packs/Day Years [...] [facility] Hematology Oncology [address] [place] [phone] 05/12/2024 10:00 AM EDT Office Visit Hematology [place] [phone] Markel Borjas MD [facility] [address] [place] [address] 03/01/2025 4:15 PM EDT Office Visit Dermatology at [place] [address] [place] [phone] Marek Bonilla MD [address], [place] [address] documented as of this encounter Procedures Procedure Name Priority Date/Time Associated Diagnosis Comments BONE MARROW ASPIRATION PERFO RMED WITH BONE MARRROW BIOPSY Routine 06/28/2016 documented in this encounter Results * BONE MARROW ASPIRATION PREFORMED WITH BONE MARRROW BIOPSY (06/28/2016) Matthew Cervantes DO GENERAL SURGI DANIEL ORDERABLES documented in this encounter Visit Diagnoses Not on filedocumented in this encounter Care Teams Instructional Developer Relationship Specialty Start Date End Date Deborah Quiroga APRN PCP - General Family Medicine 03/24/16 02/04/23 documented as of this encounter
--- OUTSIDE RECORDS SUMMARY | 2024-05-04 14:12 | XMS_ITS | Encounter Summary ---
Author Organization [facility] Address [facility] [place] [address] Care Team Providers Care Dietary Director Name Role Phone Deborah Quiroga ANURAG Primary Care Provider [phone] Encounter Details Date Type Department Care Team (Late st Contact Info) Description 09/17/2016 External Results Hematology [place] [phone] Alexandrea Greenwood RN Neutropenia, unspecified type Social [...] [facility] Hematology Oncology [address] [place] [address] 05/12/2024 10:00 AM EDT Office Visit Hematology [place] [address] Markel Borjas MD [facility] HEMATOLOGY [place] [address] 03/01/2025 4:15 PM EDT Office Visit Dermatology at [address] [address] Marek Bonilla MD [address], [place] [address] documented as of this encounter Procedures Procedure [...] type documented in this encounter Care Teams Dietary Director Relationship Specialty Start Date End Date Deborah Quiroga APRN PCP - General Family Medicine 03/24/16 02/04/23 documented as of this encounter
--- OUTSIDE RECORDS SUMMARY | 2024-05-04 14:12 | XMS_ITS | Encounter Summary ---
[place] [address] Care Team Providers Care Legal Support Specialist Name Role Phone Deborah Quiroga ANURAG Primary Care Provider [phone] Reason for Visit * Reason Onset Date Comments Medical Care Coordination 07/31/2016 Encounter Details Date Type Department Care Team (Late st Contact Info) Description 07/31/2016 Telephone Hematology [place] [phone] Alexandrea Greenwood RN Medical Care Coordination Social [...] 08/04/15 RN spoke with Aydee of the [facility] lab who states they can draw pt's cbc on 08/04/15, RN faxed lab req to [phone] at Aydee's request. RN instructed pt on Dr. Borjas's direction above. Pt verbalized understanding. documented in this encounter Plan of Treatment Upcoming Encounters Date Type Department Care Team (Late st Contact Info) Description 05/12/2024 9:00 AM EDT Laboratory Appointment Lab at [facility] [place] [address] [place] [address] 05/12/2024 10:00 AM EDT Office Visit Hematology [place] [address] Markel Borjas MD [facility] [address] HEMATOLOGY [place] [address] 03/01/2025 4:15 PM EDT Office Visit Dermatology at [place] [address] [place] [phone] Marek Bonilla MD [address], [place] [address] documented as of this encounter Visit Diagnoses Not on filedocumented in this encounter Care Teams Legal Support Specialist Relationship Specialty Start Date End Date Deborah Quiroga, SEISMIC INTERPRETER PCP - General Family Medicine 03/24/16 02/04/23 documented as of this encounter
--- OUTSIDE RECORDS SUMMARY | 2024-05-04 14:12 | XMS_ITS | Encounter Summary ---
Author Organization [facility] Address [facility] [place] [address] Care Team Providers Care Administrative Services Manager Name Role Phone Deborah Quiroga ANURAG Primary Care Provider [phone] Encounter Details Date Type Department Care Team (Late st Contact Info) Description 07/31/2016 External Results Hematology [place] [phone] Alexandrea Greenwood RN Neutropenia, unspecified type Social [...] [facility] [place]ematology Oncology [address] [place] [address] 05/12/2024 10:00 AM EDT Office Visit Hematology [place] [address] Markel Borjas MD [facility] [place] [address] 03/01/2025 4:15 PM EDT Office Visit Dermatology at [address] [address] Mraek Bonilla MD [address], [place] [address] documented as of this encounter Procedures Procedure [...] type documented in this encounter Care Teams Administrative Services Manager Relationship Specialty Start Date End Date Deborah Quiroga APRN PCP - General Family Medicine 03/24/16 02/04/23 documented as of this encounter
--- OUTSIDE RECORDS SUMMARY | 2024-05-04 14:12 | XMS_ITS | Encounter Summary ---
[place] [address] Care Team Providers Care Fire Extinguisher Charger Name Role Phone Ashley Quirogan Cornelius ANURAG Primary Care Provider [phone] Reason for Visit * Reason Onset Date Comments Medication Management 09/14/2016 Encounter Details Date Type Department Care Team (Late st Contact Info) Description 09/14/2016 Telephone Hematology [place] [phone] Alexandrea Greenwood, child care attendant school Management Social History Tobacco Use Types Packs/Day [...] 09/14/2016 9:12 AM EST Message received from field secretary: Purnima called, asking for clarification on [...] [facility] Hematology Oncology [address] [place] [address] 05/12/2024 10:00 AM EDT Office Visit [place] [address] Markel Borjas MD [facility] [address] HEMATOLOGY [place] [address] 03/01/2025 4:15 PM EDT Office Visit Dermatology at [place] [address] [place] [address] Marek Bonilla MD [address], [place] [address] documented as of this encounter Visit Diagnoses Not on filedocumented in this encounter Care Teams Fire Extinguisher Charger Relationship Specialty Start Date End Date Deborah Quiroga APRN PCP - General Family Medicine 03/24/16 02/04/23 documented as of this encounter
--- OUTSIDE RECORDS SUMMARY | 2024-05-04 14:12 | XMS_ITS | Encounter Summary ---
Author Organization [facility] Address [facility] [place] [address] Care Team Providers Care Software Technical Lead Name Role Phone Junaid Deborah Cornelius ANURAG Primary Care Provider [phone] Encounter Details Date Type Department Care Team (Late st Contact Info) Description 07/13/2016 External [place] [phone] Provider, Scanning Social History Tobacco Use Types [...] [facility] [place] [address] [place] [address] 05/12/2024 10:00 AM EDT Office Visit Hematology [place] [address] Markel Borjas MD [facility] [address] [place] [address] 03/01/2025 4:15 PM EDT Office Visit Dermatology at [place] [address] [facility] [place] [phone] Marek Bonilla MD [address], [place] [address] documented as of this encounter Procedures Procedure Name Priority Date/Time Associated Diagnosis Comments SURGICAL PATHOLOGY SCAN Routine 07/13/2016 documented in this encounter Results * Scan Doc: Surgical Pathology (07/13/2016) Nitesh Pina Jr., MD MEDIA MGR SCAN EXT O RDR/RSLT documented in this encounter Visit Diagnoses Not on filedocumented in this encounter Care Teams Software Technical Lead Relationship Specialty Start Date End Date Deborah Quiroga APRN PCP - General Family Medicine 03/24/16 02/04/23 documented as of this encounter
--- OUTSIDE RECORDS SUMMARY | 2024-05-04 14:12 | XMS_ITS | Encounter Summary ---
Author Organization [facility] Address [facility] [place] [address] Care Team Providers Care Director Biologics Name Role Phone Deborah Quiroga ANURAG Primary Care Provider [phone] Encounter Details Date Type Department Care Team (Late st Contact Info) Description 06/09/2016 Orders Only Hematology [place] [phone] Nitesh Pina Jr., MD [facility] [address] [place] [address] Cyclical neutropenia Social History Tobacco Use Types [...] [facility] Hematology Oncology [address] [place] [address] 05/12/2024 10:00 AM EDT Office Visit [place] [phone] Markel Borjas MD [facility] [address] [place] [address] 03/01/2025 4:15 PM EDT Office Visit Dermatology at [place] [address] [place] [address] Marek Bonilla MD [address], [place] [address] documented as of this encounter Results * Immunophenotyping Flow Cytometry (06/09/2016 4:53 PM EST) Immunophenotyping Flow See Comment [facility] Comment: When completed by the Pathologist, the Flow Cytometry Report ([id number]) will display under the Pathology Results section within eDH. Specimen of unknown material (specimen) 06/09/2016 4:53 PM EST 06/09/2016 5:00 PM EST Narrative Resulting Agency Comment Spec In Lab Nitesh Pina Jr., MD HEMATOLOGY ORDERABLE S Performing Organization Address City/State/[facility] Co de Phone Number [facility] [place] [address] documented in this encounter Visit Diagnoses Diagnosis Cyclical neutropenia Cyclic neutropenia documented in this encounter Care Teams Director Biologics Relationship Specialty Start Date End Date Deborah Quiroga, ANURAG PCP - General Family Medicine 03/24/16 02/04/23 documented as of this encounter
--- OUTSIDE RECORDS SUMMARY | 2024-05-04 14:12 | XMS_ITS | Encounter Summary ---
Author Organization [facility] Address [facility] [place] [address] Care Team Providers Care Tank Car Cleaner Name Role Phone Deborah Quiroga ANURAG Primary Care Provider [phone] Encounter Details Date Type Department Care Team (Late st Contact Info) Description 07/31/2016 Orders Only Hematology [place] [address] Alexandrea Greenwood RN Neutropenia, unspecified type Social [...] [facility] Hematology Oncology [address] [place] [address] 05/12/2024 10:00 AM EDT Office Visit Hematology [place] [address] Markel Borjas MD [facility] [place] [address] 03/01/2025 4:15 PM EDT Office Visit Dermatology at [address] [address] Marek Bonilla MD [address], [place] [address] documented as of this encounter Results * [...] type documented in this encounter Care Teams Tank Car Cleaner Relationship Specialty Start Date End Date Deborah Quiroga APRN PCP - General Family Medicine 03/24/16 02/04/23 documented as of this encounter
--- OUTSIDE RECORDS SUMMARY | 2024-05-04 14:12 | XMS_ITS | Encounter Summary ---
[place] [address] Care Team Providers Care Professional Programmer Analyst Name Role Phone Deborah Quiroga ANURAG Primary Care Provider [phone] Encounter Details Date Type Department Care Team (Late st Contact Info) Description 09/11/2016 Orders Only Hematology [place] [address] Alexandrea Greenwood RN Social History [...] note were not included. N [facility] H[facility] ONC [facility] [phone] Date: 09/11/16 Patient Name: Purnima Thacker : 1955 Diagnosis: Neutropenia Referral to [site]: [facility] Orders: ? Growth factor: [x] Neulasta 6mg SQ injection x 1 on 09/16/16 Signature: Markel Borjas MD beeper # [id number] Co-signature [if needed]: documented in this encounter Plan of Treatment Upcoming Encounters Date Type Department Care Team (Late st Contact Info) Description 05/12/2024 9:00 AM EDT Laboratory Appointment Lab at [facility] [place] [address] [place] [address] 05/12/2024 10:00 AM EDT Office Visit Hematology [place] [address] Markel Borjas MD [facility] [address] HEMATOLOGY [place] [address] 03/01/2025 4:15 PM EDT Office Visit Dermatology at [place] [address] [facility] [address] [place] [address] Marek Bonilla MD [address], [address] [place] [address] documented as of this encounter Procedures Procedure Name Priority Date/Time Associated Diagnosis Comments TRANSESOPHAGEAL ECHOCARDIOGRAM (GAVINO) Routine 09/22/2016 documented in this encounter Results * Transesophageal Echocardiogram (GAVINO) (09/22/2016) Anatomical Region Laterality Modality Other 09/22/2016 Narrative 09/22/2016 8:30 AM EST Procedure: ?Transesophageal Echocardiogram Patient: ?ANDREW ECHOLS M ? (Age): 1955(61y) Med Rec#: ? [id number] ?Sex: ?M ? [place] Loc: ? [facility] ?Ht / Wt: ??(cm)/ (kg) ? Pt. Loc: ?OR ? Study Date: ?? 09/21/2016 ?Pt. Type: Tape: ? Referring: Alirio Francisco Reading: Henrik Yarbrough ([id number]) Reproduction Technician: Jacobo Patel ([id number]) Interpreting Fellow: Jacobo Patel ([id number]) Diagnosis: *Aortic valve disorders (424.1) CPT Codes: *Echo GAVINO Full (90130) Indication: ?? AVR for severe Rhythm: ? [...] ? Mid-Inferior ?Normal ? Mid-Inferoseptal ?Normal ? Ray-Septal ? Normal ? Ray-Anterior ? Normal ? Ray-Lateral ?Normal ? Ray-Inferior ? Normal ? Ray-Tip ?Normal ? This report has been electronically signed by: Henrik Yarbrough M.D. ? 09/22/2016 08:30:41 Images reviewed and interpretation verified [facility] Procedure Note Henrik Yarbrough MD - 09/22/2016 Procedure: Transesophageal Echocardiogram Patient: ANDREW Mejias (Age): 1955(61y) Med Rec#: [id number] Sex: M Site Loc: [facility] Ht / Wt: (cm)/ (kg) Pt. Loc: OR Study Date: 09/21/2016 Pt. Type: Tape: Referring: Alirio Francisco Reading: Henrik Yarbrough ([id number]) Reproduction Technician: Jacobo Patel ([id number]) Interpreting Fellow: Jacobo Patel ([id number]) Diagnosis: *Aortic valve disorders (424.1) CPT Codes: *Echo GAVINO Full (23213) Indication: AVR for severe Rhythm: Sinus SUMMARY: [...] Normal Mid-Posterolateral Normal Mid-Inferior Normal Mid-Inferoseptal Normal Ray-Septal Normal Ray-Anterior Normal Ray-Lateral Normal Ray-Inferior Normal Ray-Tip Normal This report has been electronically signed by: Henrik Yarbrough M.D. 09/22/2016 08:30:41 Images reviewed and interpretation verified [facility] Unknown ECHO ORDERABLES documented in this encounter Visit Diagnoses Not on filedocumented in this encounter Care Teams Professional Programmer Analyst Relationship Specialty Start Date End Date Deborah Quiroga APRN PCP - General Family Medicine 03/24/16 02/04/23 documented as of this encounter
--- OUTSIDE RECORDS SUMMARY | 2024-05-04 14:12 | XMS_ITS | Encounter Summary ---
Author Organization [facility] Address [facility] [place] [address] Care Team Providers Care Manager Category Name Role Phone Deborah Quiroga APRN Primary Care Provider Encounter Details Date Type Department Care Team (Late st Contact Info) Description 07/17/2016 9:00 AM EST Office Visit Hematology [place] [address] Markel Borjas MD [facility] [address] HEMAT[place] [address] Neutropenia, unspecified type Social History Tobacco Use [...] 07/17/2016 9:00 AM EST Hematology Outpatient Clinic [facility] Hematology Outpatient Consult Note CC: [id number] [...] TOUCH PREP, CLOT SECTION, CORE ??BIOPSY); [OSR# [id number], COLLECTED 06/23/2016, 19 SLIDES]: ?1. ??Normocellular marrow [...] a clonal lymphoproliferative or myeloproliferative disorder (OSR# [id number]) Chromosome analysis on the marrow aspirate revealed [...] 24 hour(s)). Labs will be drawn at [facility] next week Imaging As above [...] leukopenia. Will consi kanwal talking to pt's line staker about a switch from ACEI to ARB [...] the original note were not included. N [facility] H[facility] ON[facility] [id number] Date: 07/17/16 Patient Name: Purnima Thacker : 1955 Diagnosis: neutropenia Referral to [site]: [facility] Orders: ? Labs: Fax results to . [x] Draw CBC, copper level, CMV PCR, mononucleosis screen on 07/20 Repeat CBC on 07/30 (to measure response of WBC after Neulasta) ? Growth factor: [x] Neulasta 6mg SQ injection x 1 on 07/20/2016 Signature: Markel Borjas MD beeper # [id number] documented in this encounter Plan of Treatment Upcoming Encounters Date Type Department Care Team (Late st Contact Info) Description 05/12/2024 9:00 AM EDT Laboratory Appointment Lab at [facility] Hematology Oncology [address] [place] [address] 05/12/2024 10:00 AM EDT Office Visit Hematology [place] [address] Markel Borjas MD [facility] [address] HEMATOLOGY [place] [address] 03/01/2025 4:15 PM EDT Office Visit Dermatology at [address] [place] [address] Marek Bonilla MD [address], QU[address] A DERMATOLOGY [place], [place] [address] documented as of this encounter Results * (ABNORMAL) CBC (with Diff) (07/31/2016 9:40 AM EST) Pathologist [facility] White Blood Cell 2.23(EXTER NAL/ABN) 4.4 - 10.8 EXTERNAL LAB Hemoglobin 12.6 12.0 - 16.0 EXTERNAL LAB Hematocrit 37.7 36.0 - 46.0 EXTERNAL LAB Platelet 167 130 - 400 EXTERNAL LAB Neutrophil Absolute (ANC) - Automated 1.17(EXTER NAL/ABN) 1.2 - 6.7 EXTERNAL LAB Blood specimen (specimen) 07/31/2016 9:40 AM EST Markel Borjas MD HEMATOLOGY ORDERAB LES Performing Organization Address City/[facility]/ZIP Co de Phone Number EXTERNAL LAB * Mononucleosis Screen (07/20/2016 10:30 AM EST) [facility] Mononucleosis Screen neg neg - neg EXTERNAL LAB Blood specimen (specimen) 07/20/2016 10:30 AM EST Markel Borjas MD IMMUNOLOGY ORDERAB LES Performing Organization Address City/[facility]/ZIP Co de Phone Number EXTERNAL LAB * Copper, serum (07/20/2016 10:30 AM EST) Pathologist [facility] Copper (NOVEMBER) 1.09 0.75 - 1.45 EXTERNAL LAB Blood specimen (specimen) 07/20/2016 10:30 AM EST Markel Borjas MD LAB SEND OUT ORDER JODIE Performing Organization Address City/[facility]/ZIP Co de Phone Number EXTERNAL LAB * CMV PCR, Quantitative (07/20/2016 10:30 AM EST) [facility] CMV PCR,Quantitati ve undetected EXTERNAL [...] MD HEMATOLOGY ORDERAB LES Performing Organization Address City/[facility] Co de Phone Number EXTERNAL LAB documented in this encounter Visit Diagnoses Diagnosis Neutropenia, unspecified type documented in this encounter Care Teams Manager Category Relationship Specialty Start Date End Date Deborah Quiroga APRN PCP - General Family Medicine 03/24/16 02/04/23 documented as of this encounter
--- OUTSIDE RECORDS SUMMARY | 2024-05-04 14:12 | XMS_ITS | Encounter Summary ---
[place] [address] Care Team Providers Care Clerk Cashier Name Role Phone JunaidDeborah APRN Primary Care Provider [phone] Reason for Visit * Reason Onset Date Comments Pre Procedure Call 06/18/2016 Encounter Details Date Type Department Care Team (Late st Contact Info) Description 06/18/2016 Telephone Hematology [place] [address] Alexandrea Greenwood RN Pre Procedure Call Social [...] [facility] On[facility] [address] [place] [address] 05/12/2024 10:00 AM EDT Office Visit [place]ematology [place] [address] Markel Borjas MD [facility] [address] [place] [address] 03/01/2025 4:15 PM EDT Office Visit Dermatology at [place] [address] [facility] [place] [address] Mraek Bonilla MD [address] [place] [address] documented as of this encounter Visit Diagnoses Not on filedocumented in this encounter Care Teams Clerk Cashier Relationship Specialty Start Date End Date Deborah Quiroga, PEDIATRIC PHYSICAL THERAPIST PCP - General Family Medicine 03/24/16 02/04/23 documented as of this encounter
--- OUTSIDE RECORDS SUMMARY | 2024-05-04 14:12 | XMS_ITS | Encounter Summary ---
[place] [address] Care Team Providers Care Welder/Fitter Name Role Phone Junaid, Deborah Shields APRN Primary Care Provider [phone] Reason for Visit * Auth/Cert Specialty Diagnoses / Procedures Referred By Crispin t Referred To Contact Diagnoses Aortic stenosis Procedures PRO REPLACE AORT VALV, PROSTH VALV @REPLACE AORTIC VALVE, OPEN, W\CPB, W\PROSTHETIC VALVE (WRVU 41.32) Referral ID Status Reason Start Date Expiration Date Visits Re quested Visits Authorized [id number] 1 1 Encounter Details Date Type Department Care Team (Late st Contact Info) Description 09/21/2016 7:25 AM EST Anesthesia [place] [address] Luis Enrique Quarles MD [facility] [address] [place] [address] Henrik Cooper MD [facility] [address] [place] [address] Anesthesia Record Procedure Summary Procedure Name Responsible [...] 0819 Sternotomy 0844 CV Bypass init 1009 [facility] Specialist 1014 An Clamp Remove 1031 CP [...] Tube 09/21/16 (#28 angled chest tube to [place]: left: pericardial); Left; 09/22/16; 1119 09/21/16 0000 by Toshia Alejandre RN 09/22/16 1119 by Vero Bonilla RN Chest Tube 09/21/16 (#28 straig ht chest tube to [place]; right: mediastinal'); Right; mediastinum; 09/22/16; 1118 09/21/16 0000 by Toshia Alejandre RN 09/22/16 1118 by Vero Bonilla RN (RETIRED) Peripheral IV Line - Single Lumen 09/21/16; 0648; metacarpal vein (top of hand), left; [id number]-[id number] catheter system; 20 gauge; valdo Arteaga; 09/23/16; [...] 0808; radi al artery, right; 20 gauge; kenneht; Sterile Prep, Sterile Gloves; no longer indicated; [...] Cooper MD - 09/21/2016 6:50 PM EST [facility] Department of Anesthesiology Post-procedure Note Patient: Purnima Thacker Procedure Summary Date Anesthesia Start Anesthesia Stop Room / Location 09/21/16 07 1152 [facility] OR 16 / [facility] MAIN OR Procedure Diagnosis Surgeon Responsible Provider @REPLACE AORTIC VALVE, OPEN, W\CPB, W\PROSTHETIC VALVE (WRVU 41.32) (N/A Chest); @AORTOPLASTY FOR SUPRAVALVULAR STENOSIS (WRVU 29.33) (N/A Chest) () Alirio Francisco MD Clark, Jeffrey A, MD All Anesthesia Providers: Anesthesiologist: Luis Enrique Quarles MD Angle Roll Operator: Henrik Cooper MD Last (1hr) Vitals: BP Temp 36.1 ??C (97 ??F) (09/21/16 1800) Pulse 79 (09/21/16 1800) Resp 11 (09/21/16 1800) SpO2 98 % (09/21/16 1800) Patient Location: [facility] Level of Consciousness: Sedated (Pharmacologic/Intentional) Pain Management: [...] 9:00 AM EDT Laboratory Appointment Lab at [facility] Hematology Oncology [address] [place], [place] [id number] 05/12/2024 10:00 AM EDT Office Visit [place] [address] Markel Borjas MD [facility] [address] HEMATOLOGY [place] [address] 03/01/2025 4:15 PM EDT Office Visit Dermatology at [place] [address] [place] [address] Marek Bonilla MD [address], [address] [place] [address] documented as of this encounter Visit Diagnoses [...] mg documented in this encounter Care Teams Welder/Fitter Relationship Specialty Start Date End Date Deborah Quiroga APRN PCP - General Family Medicine 03/24/16 02/04/23 documented as of this encounter
--- OUTSIDE RECORDS SUMMARY | 2024-05-04 14:12 | XMS_ITS | Encounter Summary ---
Author Organization Formerly [facility] Address [facility] [place] [address] Care Team Providers Care International Relations Teacher Name Role Phone Deborah Quiroga ANURAG Primary Care Provider [phone] Encounter Details Date Type Department Care Team (Late st Contact Info) Description 08/18/2016 Orders Only [place]iac [place] [address] Alirio Esparza MD Aortic valve stenosis, unspecified [...] 9:00 AM EDT Laboratory Appointment Lab at [facility] Hematology Oncology [address] [place] [address] 05/12/2024 10:00 AM EDT Office Visit Hematology [place] [address] Markel Borjas MD [facility] [address] HEMATOLOGY [place] [address] 03/01/2025 4:15 PM EDT Office Visit Dermatology at [address] [address] Marek Bonilla MD [address], [place] [address] documented as of this encounter Results * [...] the following links into your internet browser. [email or web address] Blood specimen (specimen) 08/18/2016 4:50 PM EST 08/18/2016 5:03 PM EST Narrative Resulting Agency Comment Spec In Lab Alirio Esparza MD CHEMISTRY ORDERABLE S [facility] [place] [address] documented in this encounter Visit Diagnoses Diagnosis Aortic valve stenosis, unspecified etiology documented in this encounter Care Teams International Relations Teacher Relationship Specialty Start Date End Date Deborah Quiroga, ANURAG PCP - General Family Medicine 03/24/16 02/04/23 documented as of this encounter
--- OUTSIDE RECORDS SUMMARY | 2024-05-04 14:12 | XMS_ITS | Encounter Summary ---
Author Organization [facility] Address [facility] [place] [address] Care Team Providers Care Technical Trainer Name Role Phone Deborah Quiroga ANURAG Primary Care Provider [phone] Encounter Details Date Type Department Care Team (Latest Contact Info) Description 08/18/2016 4:40 PM EST [place] [address] Aortic valve stenosis, unspecified etiology Social History [...] [facility] Hematology Oncology [address] [place] [address] 05/12/2024 10:00 AM EDT Office Visit [place]ology [place] [address] Markel Borjas MD [facility] [address] [place] [address] 03/01/2025 4:15 PM EDT Office Visit Dermatology at [address] [phone] Marek Bonilla MD [address], [place] [address] documented as of this encounter Procedures Procedure Name Priority Date/Time Associated Diagnosis Comments ABORH RECHECK STATUS Routine 08/18/2016 4:50 PM EST TYPE AND SCREEN, SDP (FUTURE SURGERY, [facility] SAME DAY PROGRAM ONLY) Routine 08/18/2016 4:50 [...] 4:50 PM EST) ABORH Type Recheck Completed [facility] Blood specimen (specimen) 08/18/2016 4:50 PM EST 08/18/2016 5:27 PM EST Narrative Resulting Agency Comment Spec In Lab Alirio Esparza MD [facility] [place] Organization Address City/State/ZIP Co de Phone Number [facility] [place] [address] * Antibody screen (08/18/2016 4:50 PM EST) Ab Screen Interp Negative [facility] Expires at 2359 on: 09/24/2016 [facility] Comment: Corrected from 09/17/16 12:00 [Unknown] on 09/09/16 02:32 by Shireen Treviño Blood specimen (specimen) 08/18/2016 4:50 PM EST 08/18/2016 5:11 PM EST Narrative Resulting Agency Comment Spec In Lab Alirio Esparza MD BLOOD BANK LAB [place] Performing Organization Address City/[facility]/ZIP Co de Phone Number [facility] [place] [address] * ABO/Rh Typing (08/18/2016 4:50 PM EST) ABORH Type B Pos [facility] Blood specimen (specimen) 08/18/2016 4:50 PM EST 08/18/2016 5:11 PM EST Narrative Resulting Agency Comment Spec In Lab Alirio Esparza MD BLOOD BANK LAB [place] Performing Organization Address [facility] Co de Phone Number [facility] [place] [address] * Basic Metabolic Panel (non-fasting) (08/18/2016 4:50 PM EST) [facility] Glucose 82 65 - 199 mg/dL [facility] Comment:Diabetes: >=200 mg/d L plus symptoms Blood Urea Nitrogen 12 8 - 18 mg/dL [facility] Creatinine 0.87 0.70 - 1.20 mg/dL [facility] Comment: Please note that the pediatric reference intervals supplied above were not validated at [facility]. Results from pediatric patients should be interpreted in conjunction to the patient's age, height and muscle mass. Sodium 142 135 - 145 mmol/L [facility] Potassium 3.8 3.5 - 5.0 mmol/L [facility] Comment: Please note: ??Patients with WBC >100,000 may have falsely elevated Potassium levels. ??For accurate Potassium quantification in these patients send serum separator tube (gold top) for subsequent determinations. ??Contact the Clinical Chemistry Laboratory if there are any questions. Chloride 102 98 - 107 mmol/L [facility] Carbon Dioxide 26 22 - 31 mmol/L [facility] Anion Gap 14 5 - 15 mmol/L [facility] Calcium 9.7 8.5 - 10.5 mg/dL [facility] [...] the following links into your internet browser. [email or web address] The [email or web address] [email or web address] The World/DHMCnkf Blood specimen (specimen) 08/18/2016 4:50 PM EST 08/18/2016 5:03 PM EST Narrative Resulting Agency Comment Spec In Lab Alirio Esparza MD CHEMISTRY ORDERABLE S [facility] [place] [address] documented in this encounter Visit Diagnoses Diagnosis Aortic valve stenosis, unspecified etiology documented in this encounter Care Teams Technical Trainer Relationship Specialty Start Date End Date Deborah Quiroga APRN PCP - General Family Medicine 03/24/16 02/04/23 documented as of this encounter
--- OUTSIDE RECORDS SUMMARY | 2024-05-04 14:12 | XMS_ITS | Encounter Summary ---
[place] [address] Care Team Providers Care Traffic Coordinator Name Role Phone Deborah Quiroga APRN Primary Care Provider [phone] Reason for Visit * Reason Onset Date Comments Prior Authorization 09/11/2016 Neulasta Encounter Details Date Type Department Care Team (Late st Contact Info) Description 09/11/2016 Telephone Hematology [place] [phone] Monica Wick Prior Authorization (Neulasta ) Social [...] AM EST Prior Auth for Neulasta (Approved) [facility] is a covered facility under the members plan. ID# [id number] Call placed to [phone] Rationale: Can you please start a PA for this pt to receive as outpatient at [facility] on 09/16/16? 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 ??Her last ANC was 0.56 (or 560) on 08/04/16. ??This will need to be approved through her medical as out patient. J code for neulasta. ?? [id number]. Spoke w/ Anna Marie Call Reference [id number] Copay: $ Deductible is not met, patient will have out of pocket costs until deductible is met. documented in this encounter Plan of Treatment Upcoming Encounters Date Type Department Care Team (Late st Contact Info) Description 05/12/2024 9:00 AM EDT Laboratory Appointment Lab at [facility] Hematology Oncology [address] [place] [address] 05/12/2024 10:00 AM EDT Office Visit [place]ematology [place] [address] Markel Borjas MD [facility] [address] [place] [address] 03/01/2025 4:15 PM EDT Office Visit Dermatology at [place] [address] [facility] [address] [place] [address] Marek Bonilla MD [address], [place] [address] documented as of this encounter Visit Diagnoses Not on filedocumented in this encounter Care Teams Traffic Coordinator Relationship Specialty Start Date End Date Deborah Quiroga APRN PCP - General Family Medicine 03/24/16 02/04/23 documented as of this encounter
--- OUTSIDE RECORDS SUMMARY | 2024-05-04 14:12 | XMS_ITS | Encounter Summary ---
Author Organization [facility]ly [facility] Address [facility] [place] [address] Care Team Providers Care Composite Layup Worker Name Role Phone Deborah Quiroga ANURAG Primary Care Provider [phone] Encounter Details Date Type Department Care Team (Late st Contact Info) Description 07/22/2016 External Results Hematology [place] [phone] Alexandrea Greenwood RN Neutropenia, unspecified type Social [...] [facility] Hematology Oncology [address] [place] [address] 05/12/2024 10:00 AM EDT Office Visit [place]ematology [place] [address] Markel Borjas MD [facility] HEMATOLOGY [place] [address] 03/01/2025 4:15 PM EDT Office Visit Dermatology at [address] [address] Marek Bonilla MD [address], [place] [address] documented as of this encounter Procedures Procedure [...] SEND OUT ORDER JODIE Performing Organization Address City/[facility]/ZIP Co de Phone Number EXTERNAL LAB * CMV PCR, Quantitative (07/20/2016 10:30 AM EST) CMV PCR,Quantitati ve undetected EXTERNAL LAB Blood specimen (specimen) 07/20/2016 10:30 AM EST Markel Borjas MD MOLECULAR ORDERABL ES Performing Organization Address City/[facility]/ZIP Co de Phone Number EXTERNAL LAB * [...] type documented in this encounter Care Teams Composite Layup Worker Relationship Specialty Start Date End Date Deborah Quiroga, WEATHER FORCASTER PCP - General Family Medicine 03/24/16 02/04/23 documented as of this encounter
--- OUTSIDE RECORDS SUMMARY | 2024-05-04 14:12 | XMS_ITS | Encounter Summary ---
Author Organization [facility] [place] [address] Care Team Providers Care Iron Guardrail Installer Name Role Phone Deborah Quiroga APRN Primary Care Provider Encounter Details Date Type Department Care Team (Latest Contact Info) Description 07/10/2016 2:54 PM EST - 07/10/2016 11:59 PM EST Hospital [place] [phone] Discharge Disposition: Home Social History Tobacco Use [...] [facility] Hematology Oncology [address] [place] [address] 05/12/2024 10:00 AM EDT Office Visit [place] [address] Markel Borjas MD [facility] [address] [place] [address] 03/01/2025 4:15 PM EDT Office Visit Dermatology at [place] [address] [facility] [place] [address] Marek Bonilla MD [address] [facility], [place] [address] documented as of this encounter Procedures Procedure Name Priority Date/Time Associated Diagnosis Comments BONE MARROW FINAL REPORT Routine 07/10/2016 3:43 PM EST documented in this encounter Results * Bone Marrow Final Report (07/10/2016 3:43 PM EST) Final Diagnosis [id number] ?Location: [facility] The signing pathologist has (i) examined the relevant preparation(s) for the specimen(s) and (ii) rendered or confirmed the diagnosis(es). . ? Bone Marrow Final DIAGNOSIS BONE MARROW (PERIPHERAL SMEAR, ASPIRATE SMEAR, TOUCH PREP, CLOT SECTION, CORE BIOPSY); [OSR# [id number], COLLECTED 06/23/2016, 19 SLIDES]: ?? 1. 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 Polytypic plasma cell staining, high background Lambda ?Polytypic plasma cell staining, high background Block: ? B2 (Core biopsy 2) Fixative: ?? Formalin ANTIBODY: ?? RESULT/COMMENT CD3 ? Scattered small lymphocytes and lymphoid aggregates highlighted CD20 ?Few scattered small lymphocytes stain ( ?? <CD3 in aggregates) CD138 ? Scattered plasma cells represent 3-4% of the cellularity [place] ? Polytypic plasma cell staining, high background Lambda ?Polytypic plasma cell staining, high background Note: The immunoperoxidase stains reported above were developed and their performance characteristics determined by [facility]. ??They [...] CONSULTATION CASE A - 19 slides labeled [id number], collection date 06/23/2016. [id number] Report to: [facility] Surgical Pathology Department [facility], [facility], [address]nd Floor [address] [place] [id number] 07/13/2016 11:38 AM EST [facility] Consult Case 07/10/2016 3:43 PM EST 07/10/2016 3:43 PM EST Nitesh Pina Jr., MD PATHOLOGY/CYTOLOGY O RDERABLES [facility] [place] [address] documented in this encounter Visit Diagnoses Not on filedocumented in this encounter Care Teams Iron Guardrail Installer Relationship Specialty Start Date End Date Deborah Quiroga, WEB PAGE DEVELOPER PCP - General Family Medicine 03/24/16 02/04/23 documented as of this encounter
--- OUTSIDE RECORDS SUMMARY | 2024-05-04 14:12 | XMS_ITS | Encounter Summary ---
Author Organization [facility] Address [facility] [place] [address] Care Team Providers Care Merchandise For Resale Purchasing Agent Name Role Phone Deborah Quiroga ANURAG Primary Care Provider [phone] Encounter Details Date Type Department Care Team (Late st Contact Info) Description 06/16/2016 Orders Only Hematology [place] [phone] Nitesh Pina Jr., MD [facility] [address] [place] [address] Cyclical neutropenia Social History Tobacco Use Types [...] Laboratory Appointment Lab at [facility] Hematology Oncology [address] [place] [address] 05/12/2024 10:00 AM EDT Office Visit Hematology [place] [address] Markel Borjas MD [facility] [address] [place] [address] 03/01/2025 4:15 PM EDT Office Visit Dermatology at [place] [address] [place] [address] Marek Bonilla MD [address], [place] [place] [address] documented as of this encounter Visit Diagnoses Diagnosis Cyclical neutropenia Cyclic neutropenia documented in this encounter Care Teams Merchandise For Resale Purchasing Agent Relationship Specialty Start Date End Date Deborah Quiroga APRN PCP - General Family Medicine 03/24/16 02/04/23 documented as of this encounter
--- OUTSIDE RECORDS SUMMARY | 2024-05-04 14:12 | XMS_ITS | Encounter Summary ---
Author Organization [facility] Address [facility] [place] [address] Care Team Providers Care It Account Manager Name Role Phone Deborah Quiroga APRN Primary Care Provider [phone] Encounter Details Date Type Department Care Team (Latest Contact Info) Description 06/19/2016 - 06/19/2016 11:59 PM EST Hospital Encounter Radiology Library at [facility] [place] [phone] Nitesh Pina Jr., MD [facility] [place]ATOLOGY [place] [address] Pain Discharge Disposition: Home Social History Tobacco [...] [facility] Hematology Oncology [address] [place] [address] 05/12/2024 10:00 AM EDT Office Visit Hematology [place] [address] Markel Borjas MD [facility] [address] [place]Y [place] [address] 03/01/2025 4:15 PM EDT Office Visit Dermatology at [place] [address] [place] [phone] Marek Bonilla MD [address] [facility] [place] [address] documented as of this encounter Procedures Procedure Name Priority Date/Time Associated Diagnosis Comments FILM LIBRARY STORAGE ONLY CT CHEST ABDOMEN PELVIS Routine 06/19/2016 12:00 AM EST Pain documented in this encounter Results * Film Library- Storage Only CT Chest Abdomen Pelvis (06/19/2016 12:00 AM EST) Narrative [facility] - 06/20/2016 8:53 AM EST This exam is for storage only and is auto-finalizing. Nitesh Pina Jr., MD IMG FILM LIBRARY ORD ERABLES [place], [place] documented in this encounter Visit Diagnoses Diagnosis Pain Generalized pain documented in this encounter Care Teams It Account Manager Relationship Specialty Start Date End Date Deborah Quiroga, SMALLTALK DEVELOPER PCP - General Family Medicine 03/24/16 02/04/23 documented as of this encounter
--- OUTSIDE RECORDS SUMMARY | 2024-05-04 14:12 | XMS_ITS | Encounter Summary ---
Author Organization [facility] [place] [address] Care Team Providers Care Sorter Upholstery Parts Name Role Phone Deborah Quiroga APRN Primary Care Provider [phone] Encounter Details Date Type Department Care Team (Late st Contact Info) Description 08/18/2016 4:20 PM EST Clinical [place] [address] Social History Tobacco Use Types Packs/Day Years [...] [facility] Hematology Oncology [address] [place] [address] 05/12/2024 10:00 AM EDT Office Visit [place]ematology [place] [address] Markel Borjas MD [facility] [place] [address] 03/01/2025 4:15 PM EDT Office Visit Dermatology at [place] [address] [place] [address] Marek Bonilla MD [address], [place] [address] documented as of this encounter Visit Diagnoses Not on filedocumented in this encounter Care Teams Sorter Upholstery Parts Relationship Specialty Start Date End Date Deborah Quiroga APRN PCP - General Family Medicine 03/24/16 02/04/23 documented as of this encounter
--- OUTSIDE RECORDS SUMMARY | 2024-05-04 14:13 | XMS_ITS | Encounter Summary ---
Author Organization [facility] [place] [address] Care Team Providers Care Mechanical System Technician Name Role Phone Deborah Quiroga ANURAG Primary Care Provider [phone] Encounter Details Date Type Department Care Team (Late st Contact Info) Description 05/22/2016 Orders Only Cardiology at [address] [phone] Chele Randolph PA [facility] [place] [address] Aortic valve stenosis, unspecified etiology Social History [...] [facility] [place] [place] Hematology Oncology [address] [place] [address] [phone] 05/12/2024 10:00 AM EDT Office Visit Hematology [place] [phone] Markel Borjas MD [facility] [address] HEMATOLOGY [place] [address] 03/01/2025 4:15 PM EDT Office Visit Dermatology at [place] [address] [facility] [place] [phone] Marek Bonilla MD [address], [place] [address] documented as of this encounter Procedures Procedure Name Priority Date/Time Associated Diagnosis Comments CARDIAC CATHETERIZATION Routine 06/03/20 16 9:13 AM EDT Aortic valve stenosis, unspecified etiology documented in this encounter Results * CARDIAC CATHETERIZATION (06/03/2016 9:13 AM EDT) Anatomical Region Laterality Modality Other Narrative 06/03/2016 10:13 AM EDT ?[facility] ? Cardiac Catheterization/Intervention Report ? Patient Name: Purnima Thacker. ? Procedure Date: 06/03/2016 ? A #: [id number] ? Primary Physician: Nitesh Escobedo ? Case #: [id number] ? File Name: [id number] ? Catheterization Order Number: [id number] ? [facility] ? Final Report [place], [place] ? Patient Name: ? Purnima M. Kirstie ? ID#: ?[id number] ? : ?1955 ? Procedure Date: ? [...] no symptom, no angina (w/i 14 days). Spanish ?Cardiovascular Society angina class was 0. This [...] ? Procedure Nitesh Marroquin, MD - 09/21/2016 [facility] Cardiac Catheterization/Intervention Report Patient Name: Purnima Thacker Procedure Date: 06/03/2016 A #: [id number] Primary Physician: Nitesh Escobedo Case #: [id number] File Name: [id number] Catheterization Order Number: [id number] [facility] FinalReport [place], [place] Patient Name: Purnima Thacker ID#:[id number] :1955 Procedure Date: June 03, 2016 Case [...] with: no symptom, no angina (w/i 14 days).Spanish Cardiovascular Society angina class was 0. This [...] etiology documented in this encounter Care Teams Mechanical System Technician Relationship Specialty Start Date End Date Deborah Quiroga, DRAMATIC COACH PCP - General Family Medicine 03/24/16 02/04/23 documented as of this encounter
--- OUTSIDE RECORDS SUMMARY | 2024-05-04 14:13 | XMS_ITS | Encounter Summary ---
[place] [address] Care Team Providers Care Credit Administrator Name Role Phone Mitchell Wilkes MD Primary Care Provider [phone] Reason for Visit * Reason Onset Date Comments Other 01/18/2014 Encounter Details Date Type Department Care Team (Late st Contact Info) Description 01/18/2014 Telephone Cardiology at [address] [phone] Jesusita Garces Other Social History Tobacco Use [...] [facility] Hematology Oncology [address] [place] [address] 05/12/2024 10:00 AM EDT Office Visit [place] [address] Markel Borjas MD [facility] [address] HEMATOLOGY [place] [address] 03/01/2025 4:15 PM EDT Office Visit Dermatology at [place] [address] [place] [address] Marek Bonilla MD [address], [address] [place] [address] documented as of this encounter Visit Diagnoses Not on filedocumented in this encounter Care Teams Credit Administrator Relationship Specialty Start Date End Date Mitchell Wilkes MD [facility] PCP - General 06/24/10 01/19/14 documented as of this encounter
--- OUTSIDE RECORDS SUMMARY | 2024-05-04 14:13 | XMS_ITS | Encounter Summary ---
Author Organization [facility] Address [facility] [place] [address] Care Team Providers Care Algorithm Design Engineer Name Role Phone Junaid Deborah Shields APRN Primary Care Provider [phone] Encounter Details Date Type Department Care Team (Latest Contact Info) Description 05/19/2016 11:00 AM EDT Clinical [place] [phone] Nonrheumatic aortic valve stenosis Social History Tobacco [...] [facility] Hematology Oncology [address] [place] [address] 05/12/2024 10:00 AM EDT Office Visit Hematology [place] [address] Markel Borjas MD [facility] [address] HEMATOLOGY [place] [address] 03/01/2025 4:15 PM EDT Office Visit Dermatology at [place] [address] [facility] [phone] Marek Bonilla MD [address], [place] [address] documented as of this encounter Procedures Procedure [...] (Bezet) 448 ms MUSE SYSTEM Calculated P [place] 37 degrees MUSE SYSTEM Calculated R [place] 31 degrees MUSE SYSTEM Calculated T [place] 25 degrees MUSE SYSTEM INTERPRETATION Normal sinus rhythm Normal ECG No previous ECGs available Confirmed by MD Becca, Deangelo ([id number]) on 05/19/2016 5:23:33 PM MUSE SYSTEM 05/19/2016 11:4 3 AM EDT 05/19/2016 5:23 PM EDT Alirio Esparza MD ECG ORDERABLES [employer] SYSTEM documented in this encounter Visit Diagnoses Diagnosis Nonrheumatic aortic valve stenosis Aortic valve disorders documented in this encounter Care Teams Algorithm Design Engineer Relationship Specialty Start Date End Date Deborah Quiroga, WEIGHT CONTROL LECTURER PCP - General Family Medicine 03/24/16 02/04/23 documented as of this encounter
--- OUTSIDE RECORDS SUMMARY | 2024-05-04 14:13 | XMS_ITS | Encounter Summary ---
[place] [address] Care Team Providers Care Offline Editor Name Role Phone Ashley Quirogan Cornelius ANURAG Primary Care Provider [phone] Encounter Details Date Type Department Care Team (Late st Contact Info) Description 03/24/2016 Notes [place] [phone] Alfa Lua Social History Tobacco Use Types [...] assessments completed: Wadsworth Score: 6/6 IADL: 7/7 Fruit I Farmworker Strength Trials: 18.4, 15.0, 16.8 (right hand dominant) 5 meter walk test in seconds x3: 4.98, 4.88, 4.45 KCCQol: 98% Alfa Lua documented in this encounter Plan of Treatment Upcoming Encounters Date Type Department Care Team (Late st Contact Info) Description 05/12/2024 9:00 AM EDT Laboratory Appointment Lab at [facility] Hematology Oncology [address] [place] [address] 05/12/2024 10:00 AM EDT Office Visit Hematology [place] [address] Markel Borjas MD [facility] [address] HEMAT[place] [address] 03/01/2025 4:15 PM EDT Office Visit Dermatology at [place] [address] [facility] [place] [phone] Marek Bonilla MD [address], [place] [address] documented as of this encounter Visit Diagnoses Not on filedocumented in this encounter Care Teams Offline Editor Relationship Specialty Start Date End Date Deborah Quiroga APRN PCP - General Family Medicine 03/24/16 02/04/23 documented as of this encounter
--- OUTSIDE RECORDS SUMMARY | 2024-05-04 14:13 | XMS_ITS | Encounter Summary ---
Author Organization [facility] Address [facility] [place] [address] Care Team Providers Care Animal Control Officer Name Role Phone JunaidAshley hargrovezac Shields APRN Primary Care Provider [phone] Reason for Visit * Auth/Cert Specialty Diagnoses / Procedures Referred By Crispin t Referred To Contact Diagnoses AVS Procedures CARDIAC CATHETERIZATION Referral ID Status Reason Start Date Expiration Date Visits Re quested Visits Authorized [id number] 1 1 Encounter Details Date Type Department Care Team (Late st Contact Info) Description 06/03/2016 6:32 AM EDT - 06/03/2016 1:10 PM EDT Hospital Encounter [place] [phone] Anjum Oliveros II, MD [facility] [place] [address] Mario Alberto Escobedo MD [facility] [place] [place] [address] Aortic valve stenosis, unspecified etiology; Nonrheumatic aortic [...] by your doctor, do not take any hqys-[id number] medicinesor herbal preparations without first discussing this with your doctor or pharmacist. There is the possibility of side effects and interactions when these are combined. Follow Up Care Who to call with questions or problems If there are any questions or problems that you think might be related to your cardiac cath or angioplasty, contact the fountain helper air liaison and special staff by calling [facility] at . * Patient Instructions* Felicia Corrigan - 06/03/2016 9:33 AM EDT Cardiology Instructions Call your doctor if: Chest pain, dyspnea, pain or swelling in legs occurs. If you have non-emergent questions between now and the time of your follow up appointments: -During 8am-5pm Wednesday through Wednesday call [phone] to speak with a nurse in the cardiology clinic -All other times call [phone] and ask to speak to the supervisor lens generating air liaison and special staff. MEDICATIONS - restart your spironolactone, discontinue prior [...] Appointments: Primary care provider: Cardiology: Deborah Hahn, COMPUTER PROGRAMMING PROFESSOR [phone] Follow up as planned or as needed. Dr. Esparza [phone] Other follow-up appointment: Hematology - Dr. Mario [...] [facility] Hematology Oncology [address] [place] [address] 05/12/2024 10:00 AM EDT Office Visit Hematology [place] [address] Markel Borjas MD [facility] [address] HEMATOLOGY [place] [address] 03/01/2025 4:15 PM EDT Office Visit Dermatology at [place] [address] [facility] [place] [phone] Marek Bonilla MD [address], [place] [address] documented as of this encounter Procedures Procedure [...] AM EDT) Green Hold Sample in lab. [facility] Blood specimen (specimen) Venous Draw / Unknown 06/03/2016 11:45 AM EDT 06/03/2016 12:12 PM EDT Mario Alberto Escobedo MD CHEMISTRY ORDERABLES [facility] [place] [address] * Methylmalonic acid, serum (06/03/2016 11:45 AM EDT) Methylmalonic Acid (NOVEMBER) 0.21 <=0.40 nmol/mL [facility] Comment: Test Performed by: [address] [address] Social Media Senior Associate: Raymond Chaudhry II, M.D., Ph.D. Blood specimen (specimen) 06/03/2016 11:45 AM EDT 06/03/2016 1:57 PM EDT Narrative Resulting Agency Comment Spec In Lab Mario Alberto Escobedo MD LAB SEND OUT ORDERAB LES Performing Organization Address [facility] Co de Phone Number [facility] [place] [address] * Granulocyte Antibody (06/03/2016 11:45 AM EDT) Granulocyte Ab (NOVEMBER) Negative Not Applicable [facility] Comment: ADDITIONAL INFORMATION Method: Immunofluorescent Assay Performing Laboratory CLIA# [id number] This test was developed and its performance characteristics determined by [facility] in a manner consistent with CLIA requirements. This test has not been cleared or approved by the U.S. Food and Drug Administration. Test Performed by: [place] [address] Social Media Senior Associate: Raymond Chaudhry II, M.D., Ph.D. Blood specimen (specimen) 06/03/2016 11:45 AM EDT 06/03/2016 1:57 PM EDT Narrative Resulting Agency Comment Spec In Lab Mario Alberto Escobedo MD LAB SEND OUT ORDERAB LES Performing Organization Address [facility] Co de Phone Number [facility] [place] [address] * TSH (06/03/2016 11:45 AM EDT) Thyroid Stimulating Hormone 2.18 0.27 - 4.20 mcIU/mL [facility] Blood specimen (specimen) 06/03/2016 11:45 AM EDT 06/03/2016 12:11 PM EDT Narrative Resulting Agency Comment Spec In Lab Mario Alberto Escobedo MD CHEMISTRY ORDERABLES Performing Organization Address [facility]/ZIP Co de Phone Number [facility] [place] [address] * Homocysteine Total, Plasma (06/03/2016 11:45 AM EDT) Homocystine 9 <=15 mcmol/L [facility] Blood specimen (specimen) 06/03/2016 11:45 AM EDT 06/03/2016 12:11 PM EDT Narrative Resulting Agency Comment Spec In Lab Mario Alberto Escobedo MD CHEMISTRY ORDERABLES Performing Organization Address City/[facility]/ZIP Co de Phone Number [facility] [place] [address] * Folate, serum (06/03/2016 11:45 AM EDT) Folate >20.0 4.8 - 24.2 ng/mL [facility] Blood specimen (specimen) 06/03/2016 11:45 AM EDT 06/03/2016 12:04 PM EDT Narrative Resulting Agency Comment Spec In Lab Mario Alberto Escobedo MD CHEMISTRY ORDERABLES Performing Organization Address City/[facility]/ZIP Co de Phone Number [facility] [place] [address] * (ABNORMAL) Sedimentation rate (06/03/2016 11:45 AM EDT) Sedimentation Rate Automated 41(H) 0 - 20 mm/hr [facility] Blood specimen (specimen) 06/03/2016 11:45 AM EDT 06/03/2016 12:04 PM EDT Narrative Resulting Agency Comment Spec In Lab Mario Alberto Escobedo MD HEMATOLOGY ORDERABLE S Performing Organization Address City/[facility]/ZIP Co de Phone Number [facility] [place] [address] * Lactate Dehydrogenase (06/03/2016 11:45 AM EDT) Lactate Dehydrogenase 164 110 - 220 unit/L [facility] Blood specimen (specimen) 06/03/2016 11:45 AM EDT 06/03/2016 12:11 PM EDT Narrative Resulting Agency Comment Spec In Lab Mario Alberto Escobedo MD CHEMISTRY ORDERABLES [facility] [place] [address] * Comprehensive metabolic panel (non-fasting) (06/03/2016 11:45 [...] the following links into your internet browser. [email or web address] Blood specimen (specimen) 06/03/2016 11:45 AM EDT 06/03/2016 12:11 PM EDT Narrative Resulting Agency Comment Spec In Lab Mario Alberto Escobedo MD CHEMISTRY ORDERABLES Performing Organization Address City/State/[facility] Co de Phone Number [facility] [place] [phone] documented in this encounter Visit Diagnoses Diagnosis [...] Hernandez) documented in this encounter Care Teams Animal Control Officer Relationship Specialty Start Date End Date Deborah Quiroga, COMPUTER PROGRAMMING PROFESSOR PCP - General Family Medicine 03/24/16 02/04/23 documented as of this encounter
--- OUTSIDE RECORDS SUMMARY | 2024-05-04 14:13 | XMS_ITS | Encounter Summary ---
Author Organization [facility] [place] [address] Care Team Providers Care Pastoral Worker Name Role Phone Danni Laird RECREATIONAL SPECIALIST Primary Care Provider [phone] Encounter Details Date Type Department Care Team (Late st Contact Info) Description 01/23/2014 Orders Only Cardiology at [address] [phone] Lee Kincaid MD [facility] [place] [address] SOB (shortness of breath) (Primary Dx) Social [...] [facility] Hematology Oncology [address] [place] [address] 05/12/2024 10:00 AM EDT Office Visit Hematology [place] [address] Markel Borjas MD [facility] [address] [place] [address] 03/01/2025 4:15 PM EDT Office Visit Dermatology at [place] [address] [facility] [place] [phone] Marek Bonilla MD [address], [place] [address] documented as of this encounter Results * Echocardiogram Transthoracic(Leb) (01/23/2014 3:17 PM EDT) EF 50 HEARTLAB SYSTEM Anatomical Region Laterality Modality Other 01/23/2014 Narrative 01/23/2014 4:35 PM EDT Procedure: ? Transthoracic Echocardiogram Patient: ? ANDREW ECHOLS M ?(Age): 1955(58) Med Rec#: ?[id number] ? Sex: ?F ? [facility] Loc: [facility] ? Ht / Wt: ??158(cm)/93(kg) Pt. Loc: ? Adult Floor ?BSA: ?2.02 Study Date: ?01/23/2014 ? Pt. Type: Inpatient Tape: ? Referring: Lee Kincaid ([id number]) Referring: ANNALISA Budget Accountant: Miguel Beverly Diagnosis:CPT Code(s): ??Echo Full (44660), ??Spectral Doppler (28721), Color Doppler (82655), Indication(s): ??Aortic stenosis Rhythm: Sinus HR ?BP [...] ? Mid-Inferior ?Hypokinetic ? Mid-Inferoseptal ?Hypokinetic ? [place]-Septal ? Hypokinetic ? [place]-Anterior ? Hypokinetic ? [place]-Lateral ?Hypokinetic ? [place]-Inferior ? Hypokinetic ? [place]-Tip ?Hypokinetic ? Chambers ?Value ?Units (Range) ? [...] 01/23/2014 16:34:37 Images reviewed and interpretation verified [facility] Cardiac Ultrasound Laboratory Procedure Note Lee Kincaid MD - 01/23/2014 Procedure: Transthoracic Echocardiogram Patient: ANDREW Mejias (Age): 1955(58) Med Rec#: [id number] Sex: F Site Loc: [facility] Ht / Wt: 158(cm)/93(kg) Pt. Loc: Adult Floor BSA: 2.02 Study Date: 01/23/2014 Pt. Type: Inpatient Tape: Referring: Lee Kincaid ([id number]) Referring: ANNALISA Budget Accountant: Miguel Beverly Diagnosis:CPT Code(s): Echo Full (36091), Spectral Doppler (50817), Color Doppler (08158), Indication(s): Aortic stenosis Rhythm: Sinus HR BP [...] Hypokinetic Mid-Posterolateral Hypokinetic Mid-Inferior Hypokinetic Mid-Inferoseptal Hypokinetic [place]-Septal Hypokinetic [place]-Anterior Hypokinetic [place]-Lateral Hypokinetic [place]-Inferior Hypokinetic [place]-Tip Hypokinetic Chambers Value Units (Range) IVSd 2D [...] 01/23/2014 16:34:37 Images reviewed and interpretation verified [facility] Cardiac Ultrasound Laboratory Lee Kincaid MD ECHO ORDERABLES documented in this encounter Visit Diagnoses Diagnosis SOB (shortness of breath)- Primary Shortness of breath documented in this encounter Care Teams Pastoral Worker Relationship Specialty Start Date End Date Danni Laird APRN [address] [facility] [address] PCP - General 01/23/14 11/11/14 documented as of this encounter
--- OUTSIDE RECORDS SUMMARY | 2024-05-04 14:13 | XMS_ITS | Encounter Summary ---
Author Organization [facility] [place] [address] Care Team Providers Care Principal Java Software Engineer Name Role Phone EitanDanni ANURAG Primary Care Provider [phone] Encounter Details Date Type Department Care Team (Late st Contact Info) Description 01/22/2014 Telephone Cardiology at [address] [phone] Cynthia Arringtno LPN Social History Tobacco Use Types Packs/Day [...] LPN - 01/23/2014 2:39 PM EDT This racebook writer did not receive a call back [...] [facility] Hematology Oncology [address] [place] [address] 05/12/2024 10:00 AM EDT Office Visit [place] [address] Markel Borjas MD [facility] [address] [place] [address] 03/01/2025 4:15 PM EDT Office Visit Dermatology at [place] [address] [facility] [place] [phone] Marek Bonilla MD [address], [place] [address] documented as of this encounter Visit Diagnoses Not on filedocumented in this encounter Care Teams Principal Java Software Engineer Relationship Specialty Start Date End Date Danni Laird APRN [address] [place] [address] PCP - General 01/23/14 11/11/14 documented as of this encounter
--- OUTSIDE RECORDS SUMMARY | 2024-05-04 14:13 | XMS_ITS | Encounter Summary ---
Author Organization [facility] Address [place] [address] Care Team Providers Care Dude Ranch Manager Name Role Phone Junaid, Deborah Shields APRN Primary Care Provider [phone] Reason for Visit * Auth/Cert Specialty Diagnoses / Procedures Referred By Crispin t Referred To Contact Diagnoses AVS Procedures CARDIAC CATHETERIZATION Referral ID Status Reason Start Date Expiration Date Visits Re quested Visits Authorized [id number] 1 1 Encounter Details Date Type Department Care Team (Late st Contact Info) Description 06/03/2016 7:30 AM EDT - 06/03/2016 8:30 AM EDT [place] [id number] Mario Alberto Escobedo MD [facility] [place] [address] CARDIAC CATHETERIZATION Social History Tobacco Use Types [...] by your doctor, do not take any jqyh-adf-itptzzp medicinesor herbal preparations without first discussing this with your doctor or pharmacist. There is the possibility of side effects and interactions when these are combined. Follow Up Care Who to call with questions or problems If there are any questions or problems that you think might be related to your cardiac cath or angioplasty, contact the clinical haematologist shank boner by calling [facility] at . * Patient Instructions* Felicia Corrigan - 06/03/2016 9:33 AM EDT Cardiology Instructions Call your doctor if: Chest pain, dyspnea, pain or swelling in legs occurs. If you have non-emergent questions between now and the time of your follow up appointments: -During 8am-5pm Wednesday through Wednesday call [phone] to speak with a nurse in the cardiology clinic -All other times call [phone] and ask to speak to the hand shaper shank boner. MEDICATIONS - restart your spironolactone, discontinue prior [...] Appointments: Primary care provider: Cardiology: Deborah Hahn, HEARSE DRIVER [phone] Follow up as planned or as needed. Dr. Esparza [phone] Other follow-up appointment: Hematology - Dr. Mario [...] 9:00 AM EDT Laboratory Appointment Lab at [facility] Hematology Oncology [address] [place] [address] 05/12/2024 10:00 AM EDT Office Visit [place]ematology [place] [address] Markel Borjas MD [facility] DR HEMATOLOGY [place] [address] 03/01/2025 4:15 PM EDT Office Visit Dermatology at [place] [address] [place] [phone] Marek Bonilla MD [address], [place] [address] documented as of this encounter Procedures Procedure [...] AM EDT) Green Hold Sample in lab. [facility] Blood specimen (specimen) Venous Draw / Unknown 06/03/2016 11:45 AM EDT 06/03/2016 12:12 PM EDT Mario Alberto Escobedo MD CHEMISTRY ORDERABLES Performing Organization Address City/[facility]/ZIP Co de Phone Number [facility] [place] [address] * Methylmalonic acid, serum (06/03/2016 11:45 AM EDT) Methylmalonic Acid (NOVEMBER) 0.21 <=0.40 nmol/mL [facility] Comment: Test Performed by: [address] [address] Cable Splicer Helper: Raymond Chaudhry II, M.D., Ph.D. Blood specimen (specimen) 06/03/2016 11:45 AM EDT 06/03/2016 1:57 PM EDT Narrative Resulting Agency Comment Spec In Lab Mario Alberto Escobedo MD LAB SEND OUT ORDERAB LES Performing Organization Address City/[facility]/ZIP Co de Phone Number [facility] [place] [address] * Granulocyte Antibody (06/03/2016 11:45 AM EDT) Pathologist [facility] Granulocyte Ab (NOVEMBER) Negative Not Applicable [facility] Comment: ADDITIONAL INFORMATION Method: Immunofluorescent Assay Performing Laboratory CLIA# [id number] This test was developed and its performance characteristics determined by [facility] in a manner consistent with CLIA requirements. This test has not been cleared or approved by the U.S. Food and Drug Administration. Test Performed by: [place] [address] Cable Splicer Helper: Raymond Chaudhry II, M.D., Ph.D. Blood specimen (specimen) 06/03/2016 11:45 AM EDT 06/03/2016 1:57 PM EDT Narrative Resulting Agency Comment Spec In Lab Mario Alberto Escobedo MD LAB SEND OUT ORDERAB LES [facility] [place] [address] * TSH (06/03/2016 11:45 AM EDT) Pathologist [facility] Thyroid Stimulating Hormone 2.18 0.27 - 4.20 mcIU/mL [facility] Blood specimen (specimen) 06/03/2016 11:45 AM EDT 06/03/2016 12:11 PM EDT Narrative Resulting Agency Comment Spec In Lab Mario Alberto Escobedo MD CHEMISTRY ORDERABLES Performing Organization Address City/[facility]/ZIP Co de Phone Number [facility] [place] [address] * Homocysteine Total, Plasma (06/03/2016 11:45 AM EDT) Homocystine 9 <=15 mcmol/L [facility] Blood specimen (specimen) 06/03/2016 11:45 AM EDT 06/03/2016 12:11 PM EDT Narrative Resulting Agency Comment Spec In Lab Mario Alberto Escobedo MD CHEMISTRY ORDERABLES Performing Organization Address City/[facility] Co de Phone Number [facility] [place] [address] * Folate, serum (06/03/2016 11:45 AM EDT) Folate >20.0 4.8 - 24.2 ng/mL [facility] Blood specimen (specimen) 06/03/2016 11:45 AM EDT 06/03/2016 12:04 PM EDT Narrative Resulting Agency Comment Spec In Lab Mario Alberto Escobedo MD CHEMISTRY ORDERABLES Performing Organization Address [facility] Co de Phone Number [facility] [place] [address] * (ABNORMAL) Sedimentation rate (06/03/2016 11:45 AM EDT) Sedimentation Rate Automated 41(H) 0 - 20 mm/hr [facility] Blood specimen (specimen) 06/03/2016 11:45 AM EDT 06/03/2016 12:04 PM EDT Narrative Resulting Agency Comment Spec In Lab Mario Alberto Escobedo MD HEMATOLOGY ORDERABLE S Performing Organization Address City/[facility] Co de Phone Number [facility] [place] [address] * Lactate Dehydrogenase (06/03/2016 11:45 AM EDT) Lactate Dehydrogenase 164 110 - 220 unit/L [facility] Blood specimen (specimen) 06/03/2016 11:45 AM EDT 06/03/2016 12:11 PM EDT Narrative Resulting Agency Comment Spec In Lab Mario Alberto Escobedo MD CHEMISTRY ORDERABLES Performing Organization Address City/[facility]/ZIP Co de Phone Number [facility] [place] [address] * Comprehensive metabolic panel (non-fasting) (06/03/2016 11:45 [...] the following links into your internet browser. [email or web address] Blood specimen (specimen) 06/03/2016 11:45 AM EDT 06/03/2016 12:11 PM EDT Narrative Resulting Agency Comment Spec In Lab Mario Alberto Escobedo MD CHEMISTRY ORDERABLES [facility] [place] [address] documented in this encounter Visit Diagnoses Diagnosis [...] Hernandez) documented in this encounter Care Teams Dude Ranch Manager Relationship Specialty Start Date End Date Deborah Quiroga APRN PCP - General Family Medicine 03/24/16 02/04/23 documented as of this encounter
--- OUTSIDE RECORDS SUMMARY | 2024-05-04 14:13 | XMS_ITS | Encounter Summary ---
Author Organization [facility] [place] [address] Care Team Providers Care Geological Aide Name Role Phone Mitchell Wilkes MD Primary Care Provider [phone] Encounter Details Date Type Department Care Team (Late st Contact Info) Description 01/19/2014 Orders Only Cardiology at [address] [phone] Chele Randolph PA [facility] [place] [address] Cardiomyopathy (Primary Dx) Social History Tobacco Use [...] [facility] [place] Oncology [address] [place] [address] 05/12/2024 10:00 AM EDT Office Visit Hematology [place] [phone] Markel Borjas MD [facility] [address] HEMATOLOGY [place] [address] 03/01/2025 4:15 PM EDT Office Visit Dermatology at [place] [address] [place] [phone] Marek Bonilla MD [address], [place] [address] documented as of this encounter Procedures Procedure [...] cardiomyopathies documented in this encounter Care Teams Geological Aide Relationship Specialty Start Date End Date Mitchell Wilkes MD [facility] PCP - General 06/24/10 01/19/14 documented as of this encounter
--- OUTSIDE RECORDS SUMMARY | 2024-05-04 14:13 | XMS_ITS | Encounter Summary ---
Author Organization [facility] Address [facility] [place] [address] Care Team Providers Care Manager Biologics Name Role Phone Deborah Quiroga APRN Primary Care Provider [phone] Reason for Visit * Reason Comments Schedule Office Case * Consultation (Routine) - Closed Specialty Diagnoses / Procedures Referred By Contac t Referred To Contact Hematology and Oncology Diagnoses Leukopenia Neutropenia LEUKOPENIA W/NEUTROPENIA Procedures TC PEGFILGRASTIM, 6MG, INJECTION LEUKOPENIA W/NEUTROPENIA Alirio Esparza MD [facility] [place] [address] Mario Alberto Ramos Jr., MD [facility] [address] [place] [address] Referral ID Status Reason Start Date Expiration Date V isits Requested Visits Authorized [id number] Closed Consult, Test & Treat 07/17/2016 07/17/2017 1 1 Encounter Details Date Type Department Care Team (Late st Contact Info) Description 06/09/2016 3:00 PM EST Office Visit [place]ematology [place] [address] Mario Alberto Ramos Jr., MD [facility] [place] [address] Cyclical neutropenia Social History Tobacco Use Types [...] Unknown See Comment Flow Cytometry Report Unknown [id number] ... HematoPathology: Flow Cytometry DIAGNOSIS 1. No [...] [facility] [place] Hematology Oncology [address] [place] [address] 05/12/2024 10:00 AM EDT Office Visit [place]ology [place] [address] Markel Borjas MD [facility] [address] [place] [address] 03/01/2025 4:15 PM EDT Office Visit Dermatology at [place] [address] [place] [phone] Marek Bonilla MD [address] [place] [address] documented as of this encounter Procedures Procedure [...] (06/09/2016 4:53 PM EST) Flow Cytometry Report [id number] ?Location: 3K The signing pathologist has (i) [...] by the Clinical Flow Cytometry Laboratory at [facility]. It has not been cleared or [...] high complexity clinical laboratory testing. SPECIMEN PROCESSING [id number] Cells for immunophenotypic analysis were derived from [...] Phone Number [facility] [place] [address] * Scan, Peripheral Blood (06/09/2016 4:53 PM EST) Plat estimate Normal [facility] RBC Morphology Normal [facility] Blood specimen (specimen) 06/09/2016 4:53 PM EST 06/09/2016 5:00 PM EST Narrative Resulting Agency Comment Spec In Lab Mario Alberto Ramos Jr., MD HEMATOLOGY ORDERABLE S Performing Organization Address City/[facility]/ZIP Co de Phone Number [facility] [place] [address] * (ABNORMAL) Differential, Automated (06/09/2016 4:53 PM EST) Pathologist [facility] Neutrophil % 27.7 % [facility] Neutrophil Absolute 0.48(Crit ical) 1.70 - 6.10 x10(3)/mc L [facility] Comment: Matches Previous Results.. This result has been called to NOT CALLED by Jesusita Argueta on 06 09 2016 at 1817, and has not been read back. MATCHES PREVIOUS RESULTS Lymph % 57.2 % [facility] Lymphocytes Abs 1.0 0.9 - 3.2 x10(3)/ L [facility] Monocyte % 13.3 % [facility] Monocyte Abs 0.2(L) 0.3 - 0.9 x10(3)/[facility] Eos % 0.6 % [facility] Eosinophils Abs 0.0 0.0 - 0.4 x10(3)/[facility] Basophil % 1.2 % [facility] [...] - 0.04 x10(3)/[facility] Blood specimen (specimen) 06/09/2016 4:53 PM EST 06/09/2016 5:00 PM EST Narrative Resulting Agency Comment Spec In Lab Mario Alberto Ramos Jr., MD HEMATOLOGY ORDERABLE S Performing Organization Address City/State/[facility] Co de Phone Number [facility] [place] [address] * (ABNORMAL) Hemogram (06/09/2016 4:53 PM EST) White Blood Cell 1.7(Criti gabrielle) 4.0 - 9.5 x10(3)/[facility] Red Blood Cell 3.92(L) 4.00 - 5.21 x10(6)/[facility] Hemoglobin 12.4 11.7 - 15.5 gm/dL [facility] Hematocrit 36.7 35.7 - 45.8 % [facility] Mean Cell Volume 93.6 82.6 - 94.4 fL [facility] Mean Cell Hemoglobin 31.6 27.1 - 32.0 pg [facility] Mean Cell Hemoglobin Concentration 33.8 31.7 - 35.0 gm/dL [facility] Platelet 234 145 - 357 x10(3)/mc L [facility] RDW Standard Deviation 39.8 37.0 - 46.0 fL [facility] RDW coefficient of variation 11.8 11.5 - 14.1 % [facility] Mean Platelet Volume 8.6 7.6 - 12.9 fL [facility] [...] Phone Number [facility] [place] [address] * Immunophenotyping Flow Cytometry (06/09/2016 4:53 PM EST) Immunophenotyping Flow See Comment [facility] Comment: When completed by the Pathologist, the Flow Cytometry Report ([id number]) will display under the Pathology Results section within [facility]. Specimen of unknown material (specimen) 06/09/2016 4:53 PM EST 06/09/2016 5:00 PM EST Narrative Resulting Agency Comment Spec In Lab Mario Alberto Ramos Jr., MD HEMATOLOGY ORDERABLE S Performing Organization Address City/[facility]/ZIP Co de Phone Number [facility] [place] [address] documented in this encounter Visit Diagnoses Diagnosis Cyclical neutropenia Cyclic neutropenia documented in this encounter Care Teams Manager Biologics Relationship Specialty Start Date End Date Deborah Quiroga APRN PCP - General Family Medicine 03/24/16 02/04/23 documented as of this encounter
--- OUTSIDE RECORDS SUMMARY | 2024-05-04 14:13 | XMS_ITS | Encounter Summary ---
Author Organization [facility] [place] [address] Care Team Providers Care Elementary School Teacher Name Role Phone Eitan Danni ANURAG Primary Care Provider Encounter Details Date Type Department Care Team (Late st Contact Info) Description 01/23/2014 9:25 AM EDT - 01/23/2014 10:25 AM EDT Surgery [place] [address] Alan Jacobson MD [facility] [place] [address] CARDIAC CATHETERIZATION Social History Tobacco Use Types [...] by your doctor, do not take any lpsb-vlf-ehpwndx medicines or herbal preparations without first discussing this with your doctor or pharmacist. There is the possibility of side effect and interactions when these are combined. Follow up Care Who to Call with Questions or Problems If there are any questions or problems that you think might be related to your cardiac cath or angioplasty, contact the software developer manager convenience store manager by calling [facility] at . documented in this encounter [...] [facility] Hematology Oncology [address] [place] [address] 05/12/2024 10:00 AM EDT Office Visit Hematology [place] [address] Markel Borjas MD [facility] [address] [place] [address] 03/01/2025 4:15 PM EDT Office Visit Dermatology at [place] [address] [place] [address] Marek Bonilla MD [address], [place] [address] documented as of this encounter Procedures Procedure Name Priority Date/Time Associated Diagnosis Comments ECHOCARDIOGRAM TRANSTHORACIC Routine 01/23/2014 3:17 PM EDT SOB (shortness of breath) documented in this encounter Results * Echocardiogram Transthoracic(Leb) (01/23/2014 3:17 PM EDT) [facility] EF 50 HEARTOrdoro SYSTEM Anatomical Region Laterality Modality Other 01/23/2014 Narrative 01/23/2014 4:35 PM EDT Procedure: ? Transthoracic Echocardiogram Patient: ? ANDREW ONESIMO M ?(Age): 1955(58) Med Rec#: ?[id number] ? Sex: ?F ? Site Loc: ?[facility] ? Ht / Wt: ??158(cm)/93(kg) Pt. Loc: ? Adult Floor ?BSA: ?2.02 Study Date: ?01/23/2014 ? Pt. Type: Inpatient Tape: ? Referring: Lee Kincaid ([id number]) Referring: ANNALISA Ui Lead Developer: Miguel Beverly Diagnosis:CPT Code(s): ??Echo Full (50906), ??Spectral Doppler (18724), Color Doppler (07692), Indication(s): ??Aortic stenosis Rhythm: Sinus HR ?BP [...] ? Mid-Inferior ?Hypokinetic ? Mid-Inferoseptal ?Hypokinetic ? [place]-Septal ? Hypokinetic ? [place]-Anterior ? Hypokinetic ? [place]-Lateral ?Hypokinetic ? [place]-Inferior ? Hypokinetic ? [place]-Tip ?Hypokinetic ? Chambers ?Value ?Units (Range) ? [...] 01/23/2014 16:34:37 Images reviewed and interpretation verified [facility] Cardiac Ultrasound Laboratory Procedure Note Lee Kincaid MD - 01/23/2014 Procedure: Transthoracic Echocardiogram Patient: ANDREW Mejias (Age): 1955(58) Med Rec#: [id number] Sex: F Site Loc: [facility] Ht / Wt: 158(cm)/93(kg) Pt. Loc: Adult Floor BSA: 2.02 Study Date: 01/23/2014 Pt. Type: Inpatient Tape: Referring: Lee Kincaid ([id number]) Referring: ANNALISA Ui Lead Developer: Miguel Beverly Diagnosis:CPT Code(s): Echo Full (11166), Spectral Doppler (00120), Color Doppler (57715), Indication(s): Aortic stenosis Rhythm: Sinus HR BP [...] Hypokinetic Mid-Posterolateral Hypokinetic Mid-Inferior Hypokinetic Mid-Inferoseptal Hypokinetic [place]-Septal Hypokinetic [place]-Anterior Hypokinetic [place]-Lateral Hypokinetic [place]-Inferior Hypokinetic [place]-Tip Hypokinetic Chambers Value Units (Range) IVSd 2D [...] 01/23/2014 16:34:37 Images reviewed and interpretation verified [facility] Cardiac Ultrasound Laboratory Lee Kincaid MD [...] RN) documented in this encounter Care Teams Elementary School Teacher Relationship Specialty Start Date End Date Danni Laird APRN [address] [place] [address] PCP - General 01/23/14 11/11/14 documented as of this encounter
--- OUTSIDE RECORDS SUMMARY | 2024-05-04 14:13 | XMS_ITS | Encounter Summary ---
Author Organization [facility] Address [facility] [place] [address] Care Team Providers Care Presbyterian Clergy Name Role Phone EitanMagnusDanni ANURAG Primary Care Provider Encounter Details Date Type Department Care Team (Latest Contact Info) Description 01/23/2014 7:45 AM EDT - 01/23/2014 5:50 PM EDT Hospital En[place] [address] Alan Jacobson MD [facility] [place] [address] Cardiomyopathy; SOB (shortness of breath) Discharge Disposition: [...] by your doctor, do not take any qtqj-soz-fsolmnu medicines or herbal preparations without first discussing this with your doctor or pharmacist. There is the possibility of side effect and interactions when these are combined. Follow up Care Who to Call with Questions or Problems If there are any questions or problems that you think might be related to your cardiac cath or angioplasty, contact the assembler deck and hull cement conveyor operator by calling [facility] at . documented in this encounter [...] Laboratory Appointment Lab at [place] Hematology Oncology [address] [place] [address] 05/12/2024 10:00 AM EDT Office Visit Hematology [place] [address] Markel Borjas MD [facility] [address] [place] [address] 03/01/2025 4:15 PM EDT Office Visit Dermatology at [place] [address] [address] [place] [address] Marek Bonilla MD [address] [place] [address] documented as of this encounter Procedures Procedure Name Priority Date/Time Associated Diagnosis Comments ECHOCARDIOGRAM TRANSTHORACIC Routine 01/23/2014 3:17 PM EDT SOB (shortness of breath) documented in this encounter Results * Echocardiogram Transthoracic(Leb) (01/23/2014 3:17 PM EDT) Pathologist [facility] EF 50 HEARTLAB SYSTEM Anatomical Region Laterality Modality Other 01/23/2014 Narrative 01/23/2014 4:35 PM EDT Procedure: ? Transthoracic Echocardiogram Patient: ? ANDREW ONESIMO M ?(Age): 1955(58) Med Rec#: ?[id number] ? Sex: ?F ? Site Loc: ?[place] ? Ht / Wt: ??158(cm)/93(kg) Pt. Loc: ? Adult Floor ?BSA: ?2.02 Study Date: ?01/23/2014 ? Pt. Type: Inpatient Tape: ? Referring: Lee Kincaid ([id number]) Referring: ANNALISA Stenotypist: Miguel Beverly Diagnosis:CPT Code(s): ??Echo Full (39522), ??Spectral Doppler (65149), Color Doppler (39409), Indication(s): ??Aortic stenosis Rhythm: Sinus HR ?BP [...] ? Mid-Inferior ?Hypokinetic ? Mid-Inferoseptal ?Hypokinetic ? [place]-Septal ? Hypokinetic ? [place]-Anterior ? Hypokinetic ? [place]-Lateral ?Hypokinetic ? [place]-Inferior ? Hypokinetic ? [place]-Tip ?Hypokinetic ? Chambers ?Value ?Units (Range) ? [...] 01/23/2014 16:34:37 Images reviewed and interpretation verified [facility] Cardiac Ultrasound Laboratory Procedure Note Lee Kincaid MD - 01/23/2014 Procedure: Transthoracic Echocardiogram Patient: ANDREW Mejias (Age): 1955(58) Med Rec#: [id number] Sex: F Site Loc: [place] Ht / Wt: 158(cm)/93(kg) Pt. Loc: Adult Floor BSA: 2.02 Study Date: 01/23/2014 Pt. Type: Inpatient Tape: Referring: Lee Kincaid ([id number]) Referring: ANNALISA Stenotypist: Miguel Beverly Diagnosis:CPT Code(s): Echo Full (18969), Spectral Doppler (03771), Color Doppler (07717), Indication(s): Aortic stenosis Rhythm: Sinus HR BP [...] Hypokinetic Mid-Posterolateral Hypokinetic Mid-Inferior Hypokinetic Mid-Inferoseptal Hypokinetic [place]-Septal Hypokinetic [place]-Anterior Hypokinetic [place]-Lateral Hypokinetic [place]-Inferior Hypokinetic [place]-Tip Hypokinetic Chambers Value Units (Range) IVSd 2D [...] 01/23/2014 16:34:37 Images reviewed and interpretation verified [facility] Cardiac Ultrasound Laboratory Lee Kincaid MD [...] RN) documented in this encounter Care Teams Pres[employer] Clergy Relationship Specialty Start Date End Date Danni Laird APRN [address] [place] [address] PCP - General 01/23/14 11/11/14 documented as of this encounter
--- OUTSIDE RECORDS SUMMARY | 2024-05-04 14:13 | XMS_ITS | Encounter Summary ---
[place] [address] Care Team Providers Care Game Design Instructor Name Role Phone Jerel Sofia Garcia APRN Primary Care Provider [phone] Encounter Details Date Type Department Care Team (Late st Contact Info) Description 11/12/2014 8:10 AM EDT - 11/12/2014 11:59 PM EDT Hospital [place] [phone] CLINIC, DR ABE Burrell, Antelmo Porter MD [address] [place] [address] Discharge Disposition: Home Social History Tobacco Use [...] [facility] H[facility] Oncology [address] [place] [address] 05/12/2024 10:00 AM EDT Office Visit Hematology [place] [address] Markel Borjas MD [facility] [address] [place] [address] 03/01/2025 4:15 PM EDT Office Visit Dermatology at [place] [address] [facility] [place] [address] Marek Bonilla MD [address], [place] [address] documented as of this encounter Procedures Procedure [...] mLs documented in this encounter Care Teams Game Design Instructor Relationship Specialty Start Date End Date Sofia Beltrán APRN [address] [place] [address] PCP - General 11/12/14 03/23/16 documented as of this encounter
--- OUTSIDE RECORDS SUMMARY | 2024-05-04 14:13 | XMS_ITS | Encounter Summary ---
Author Organization [facility] Address [facility] [place] [address] Care Team Providers Care Ring Facer Name Role Phone Deborah Quiroga APRN Primary Care Provider [phone] Encounter Details Date Type Department Care Team (Latest Contact Info) Description 05/19/2016 11:52 AM EDT - 05/19/2016 11:59 PM EDT Hospital Encounter XRay at [address] [place] [address] Alirio Esparza MD Nonrheumatic aortic valve stenosis [...] AM EDT Laboratory Appointment Lab at [facility] Hematology Oncology [address] [place] [address] 05/12/2024 10:00 AM EDT Office Visit [place] [address] Markel Borjas MD [facility] DR [place] [address] 03/01/2025 4:15 PM EDT Office Visit Dermatology at [place] [address] [facility] [place] [address] Marek Bonilla MD [address] [facility], [place] [address] documented as of this encounter Procedures Procedure [...] disorders documented in this encounter Care Teams Ring Facer Relationship Specialty Start Date End Date Deborah Quiroga, HEALTH ANALYTICS CONSULTANT PCP - General Family Medicine 03/24/16 02/04/23 documented as of this encounter
--- OUTSIDE RECORDS SUMMARY | 2024-05-04 14:13 | XMS_ITS | Encounter Summary ---
Author Organization [facility] Address [facility] [place] [address] Care Team Providers Care Milk Collector Name Role Phone Ashley Quirogan Cornelius ANURAG Primary Care Provider [phone] Encounter Details Date Type Department Care Team (Latest Contact Info) Description 05/19/2016 11:20 AM EDT Laboratory [place] [address] Nonrheumatic aortic valve stenosis Social History Tobacco [...] EDT Laboratory Appointment Lab at [facility] Hematology Oncology [address] [place] [address] 05/12/2024 10:00 AM EDT Office Visit Hematology [place] [address] [facility] HEMATOLOGY [place] [address] 03/01/2025 4:15 PM EDT Office Visit Dermatology at [address] [address] Marek Bonilla MD [address], [place] [address] documented as of this encounter Procedures Procedure Name Priority Date/Time Associated Diagnosis Comments SCAN, PERIPHERAL BLOOD Routine 05/19/2016 11:32 AM EDT HEMOGRAM Routine 05/19/2016 11:32 AM EDT Nonrheumatic aortic valve stenosis DIFFERENTIAL, AUTOMATED Routine 05/19/2016 11:32 AM EDT Nonrheumatic aortic valve stenosis TYPE AND SCREEN, SDP (FUTURE SURGERY, [facility] SAME DAY PROGRAM ONLY) Routine 05/19/2016 11:32 [...] (05/19/2016 11:32 AM EDT) Plat estimate Normal [facility] RBC Morphology Normal [facility] Blood specimen (specimen) 05/19/2016 11:32 AM EDT 05/19/2016 11:41 AM EDT Narrative Resulting Agency Comment Spec In Lab Aliroi Esparza MD HEMATOLOGY ORDERABL ES [facility] [place] [address] * (ABNORMAL) Differential, Automated (05/19/2016 11:32 AM EDT) Pathologist Iron Neutrophil % 25.9 % [facility] Neutrophil Absolute 0.42(Crit ical) 1.70 - 6.10 x10(3)/[facility] Comment: This result has been called to DR ALIRIO ESPARZA by Alivia Ibarra on 05 19 2016 at 1228, and has been read back. Lymph % 59.9 % [facility] Lymphocytes Abs 1.0 0.9 - 3.2 x10(3)/[facility] Monocyte % 13.0 % [facility] Monocyte Abs 0.2(L) 0.3 - 0.9 x10(3)/[facility] Eos % 0.6 % [facility] Eosinophils Abs 0.0 0.0 - 0.4 x10(3)/[facility] Basophil % 0.6 % [facility] Baso Absolute 0.0 0.0 - 0.1 x10(3)/[facility] Immature Gran % 0.00 % [facility] Comment: Immature granulocytes(IG's)percentage and absolute count will include metamyelocytes, myelocytes, and promyelocytes. Blood smears from CBCs yielding IG's will be scanned manually for concordance. If this scan disagrees with the automated IG or if promyelocytes are noted, a manual differential will be performed. Immature Gran Absolute 0.00 0.00 - 0.04 x10(3)/[facility] Blood specimen (specimen) 05/19/2016 11:32 AM EDT 05/19/2016 11:41 AM EDT Narrative Resulting Agency Comment Spec In Lab Alirio Esparza MD HEMATOLOGY ORDERABL ES [facility] [place] [address] * (ABNORMAL) Hemogram (05/19/2016 11:32 AM EDT) White Blood Cell 1.6(Criti gabrielle) 4.0 - 9.5 x10(3)/mc L [facility] Comment: This result has been called to DR ALIRIO ESPARZA by Alivia Ibarra on 05 19 2016 at 1228, and has been read back. Red Blood Cell 3.96(L) 4.00 - 5.21 x10(6)/mc L [facility] Hemoglobin 12.5 11.7 - 15.5 gm/dL [facility] Hematocrit 37.9 35.7 - 45.8 % [facility] Mean Cell Volume 95.7(H) 82.6 - 94.4 fL [facility] Mean Cell Hemoglobin 31.6 27.1 - 32.0 pg [facility] Mean Cell Hemoglobin Concentration 33.0 31.7 - 35.0 gm/dL [facility] Platelet 227 145 - 357 x10(3)/ L [facility] RDW Standard Deviation 40.5 37.0 - 46.0 [facility] RDW coefficient of variation 11.5 11.5 - 14.1 % [facility] Mean Platelet Volume 8.4 7.6 - 12.9 fL [facility] NRBC% auto 0.0 % [facility] NRBC Absolute 0.000 0.000 - 0.000 x10(3)/ L [facility] Blood specimen (specimen) 05/19/2016 11:32 AM EDT 05/19/2016 11:41 AM EDT Narrative Resulting Agency Comment Spec In Lab Alirio Esparza MD HEMATOLOGY ORDERABL ES [facility] [place] [address] * Antibody screen (05/19/2016 11:32 AM EDT) Ab Screen Interp Negative [facility] Expires at [id number] on: 07/03/2016 [facility] Comment: Corrected from 06/11/16 12:00 [Unknown] on 06/09/16 05:51 by Bethanie Tomlinson I.. Corrected from 07/03/16 12:00 [Unknown] on 05/21/16 06:00 by Shelia Barrera Blood specimen (specimen) 05/19/2016 11:32 AM EDT 05/19/2016 11:35 AM EDT Narrative Resulting Agency Comment Spec In Lab Alirio Esparza MD BLOOD BANK LAB ORDCornelius ALEJO [facility] [place] [address] * ABO/Rh Typing (05/19/2016 11:32 AM EDT) Pathologist [facility] ABORH Type B Pos [facility] Blood specimen (specimen) 05/19/2016 11:32 AM EDT 05/19/2016 11:35 AM EDT Narrative Resulting Agency Comment Spec In Lab Alirio Esparza MD BLOOD BANK LAB BETH ALEJO [facility] [place] [address] * Basic Metabolic Panel (non-fasting) (05/19/2016 11:32 AM EDT) [facility] [address] Glucose 86 65 - 199 mg/dL [facility] Comment:Diabetes: >=200 mg/d L plus symptoms Blood Urea Nitrogen 13 8 - 18 mg/dL [facility] Creatinine 0.95 0.70 - 1.20 mg/dL [facility] Comment: Please note that the pediatric reference intervals supplied above were not validated at [facility]. Results from pediatric patients should [...] mmol/L [facility] Carbon Dioxide 27 22 - 31 mmol/L [facility] Anion Gap 12 5 - 15 mmol/L [facility] Calcium 10.1 8.5 - 10.5 mg/dL [facility] Est Glomerular Filtration Rate 60 >=60 [facility] Comment: This [...] the following links into your internet browser. [email or web address] Blood specimen (specimen) 05/19/2016 11:32 AM EDT 05/19/2016 11:41 AM EDT Narrative Resulting Agency Comment Spec In Lab Alirio Esparza MD CHEMISTRY ORDERABLE S [facility] [place] [address] documented in this encounter Visit Diagnoses Diagnosis Nonrheumatic aortic valve stenosis Aortic valve disorders documented in this encounter Care Teams Milk Collector Relationship Specialty Start Date End Date Deborah Quiroga APRN PCP - General Family Medicine 03/24/16 02/04/23 documented as of this encounter
--- OUTSIDE RECORDS SUMMARY | 2024-05-04 14:13 | XMS_ITS | Encounter Summary ---
Author Organization [facility] [place] [address] Care Team Providers Care Car Usher Name Role Phone Junaid, Deborah Shields APRN Primary Care Provider [phone] Encounter Details Date Type Department Care Team (Late st Contact Info) Description 05/19/2016 10:00 AM EDT Office [place] [address] Alirio Esparza MD Nonrheumatic aortic valve stenosis [...] [facility] Hematology Oncology [address] [place] [address] 05/12/2024 10:00 AM EDT Office Visit [place] [address] Markel Borjas MD [facility] [address] [place] [address] 03/01/2025 4:15 PM EDT Office Visit Dermatology at [place] [address] [facility] [place] [address] Marek Bonilla MD [address] [facility], [place] [address] documented as of this encounter Results * [...] (Bezet) 448 ms MUSE SYSTEM Calculated P Rolla 37 degrees MUSE SYSTEM Calculated R Rolla 31 degrees MUSE SYSTEM Calculated T Rolla 25 degrees MUSE SYSTEM INTERPRETATION Normal sinus rhythm Normal ECG No previous ECGs available Confirmed by MD Becca, Deangelo ([id number]) on 05/19/2016 5:23:33 PM MUSE SYSTEM 05/19/2016 11:4 3 AM EDT 05/19/2016 5:23 PM EDT Alirio Esparza MD ECG ORDERABLES MUSE SYSTEM * Basic Metabolic Panel (non-fasting) (05/19/2016 11:32 AM EDT) Glucose 86 65 - 199 mg/dL ST [...] LABORATORY Est Glomerular Filtration Rate 60 >=60 [facility] Comment: This [...] the following links into your internet browser. [email or web address] Blood specimen (specimen) 05/19/2016 11:32 AM EDT 05/19/2016 11:41 AM EDT Narrative Resulting Agency Comment Spec In Lab Alirio Esparza MD CHEMISTRY ORDERABLE S [facility] [place] [address] documented in this encounter Visit Diagnoses Diagnosis Nonrheumatic aortic valve stenosis Aortic valve disorders Nonrheumatic aortic valve stenosis Aortic valve disorders documented in this encounter Care Teams Car Usher Relationship Specialty Start Date End Date Deborah Quiroga, GREEN CHAIN OFF BEARER PCP - General Family Medicine 03/24/16 02/04/23 documented as of this encounter
--- OUTSIDE RECORDS SUMMARY | 2024-05-04 14:13 | XMS_ITS | Encounter Summary ---
Author Organization [facility] Address [facility] [place] [address] Care Team Providers Care Structural Draftsman Name Role Phone JunaidAshley hargrovezac Shields APRN Primary Care Provider [phone] Reason for Visit * Consultation (Urgent) - Closed Specialty Diagnoses / Procedures Referred By Contac t Referred To Contact Cardiac Surgery Diagnoses aortic stenosis, consideration for valve replacement Antemlo Burrell MD [address] [place] [address] Alirio Esparza MD [facility] DR C[place] [address] Referral ID Status Reason Start Date Expiration Date V isits Requested Visits Authorized [id number] Closed Connection Center 03/04/2016 03/04/2017 1 1 Encounter Details Date Type Department Care Team (Late st Contact Info) Description 03/24/2016 10:40 AM EDT Office [place] [address] Alirio Esparza MD Aortic valve stenosis, unspecified [...] This is a patient of Antelmo Burrell [facility] Cardiology. Mrs. Thacker is being sent [...] 30 minute visit, 20 minutes were spent [id number] with the patient discussing aortic stenosis and valve replacement. documented in this encounter Plan of Treatment Upcoming Encounters Date Type Department Care Team (Late st Contact Info) Description 05/12/2024 9:00 AM EDT Laboratory Appointment Lab at [facility] Hematology Oncology [address] [place] [address] 05/12/2024 10:00 AM EDT Office Visit Hematology [place] [address] Markel Borjas MD [facility] DR HEMATOLOGY [place] [address] 03/01/2025 4:15 PM EDT Office Visit Dermatology at [place] [address] [facility] [place] [address] Marek Bonilla MD [address], [address] [place] [address] documented as of this encounter Visit Diagnoses Diagnosis Aortic valve stenosis, unspecified etiology documented in this encounter Care Teams Structural Draftsman Relationship Specialty Start Date End Date Deborah Quiroga APRN PCP - General Family Medicine 03/24/16 02/04/23 documented as of this encounter
[2024-05-09 14:53] VITALS: BP 108/49; PULSE 78
--- OUTSIDE RECORDS SUMMARY | 2024-05-09 15:19 | XMS_ITS | Encounter Summary ---
Author Organization [facility] Address [facility] [place] [address] Care Team Providers Care Executive Administrator Name Role Phone Magdalena Acosta MD Primary Care Provider [phone] Encounter Details Date Type Department Care Team (Late st Contact Info) Description 07/29/2023 11:00 AM EST Office [place] [address] Magdalena Peralta MD [facility] [place] [address] Mixed connective tissue disease Social History Tobacco [...] 1:5120 speckled; VIC negative; Myositis panel with PREKINDERGARTEN TEACHER ab 149.1 (positive); Anti U1RNP IgG 119; [...] Viramontes. Magdalena Peralta MD Rheumatology Fellow Pager: [phone] * Kia Viramontes DO - 07/29/2023 11:00 [...] [facility] Hematology Oncology [address] [place] [address] 05/12/2024 10:00 AM EDT Office Visit Hematology [place] [address] Markel Borjas MD [facility] DR [place] [address] 03/01/2025 4:15 PM EDT Office Visit Dermatology at [place] [address] [facility] [place] [address] Marek Bonilla MD [address] [facility], [place] [address] documented as of this encounter Results * [...] PFT FEV1/FVC Pre-BD Z-Score 0 COMPAS PFT LMA21-64 Actual Pre-BD 2.41 % COMPAS PFT BZG17-45 Predicted 1.8 % COMPAS PFT DRK12-23 Pre-BD % of Predicted 134 % COMPAS PFT VWT02-97 Pre-BD Z-Score 0.81 COMPAS PFT DLCO Hb [...] Other specified diffuse disease of connective tissue Chronic idiopathic neutropenia Other neutropenia documented in this encounter Care Teams Executive Administrator Relationship Specialty Start Date End Date Magdalena Acosta MD [address] [place] [address] PCP - General Family Medicine 02/05/23 documented as of this encounter
--- OUTSIDE RECORDS SUMMARY | 2024-05-09 15:19 | XMS_ITS | Encounter Summary ---
[place] [address] Care Team Providers Care Tire Service Technician Name Role Phone Magdalena Acosta MD Primary Care Provider [phone] Reason for Referral * Consultation (Routine) - Authorized Specialty Diagnoses / Procedures Referred By Contac t Referred To Contact Hematology and Oncology Diagnoses Anemia, unspecified type Consuelo Guerrero DO [address] [place] [address] [address] [place] [address] [facility] [address] [place] [address] Referral ID Status Reason Start Date Expiration Date Visits Requested Visits Authorized [id number] Authorized Consult, Test & Treat 04/11/2024 04/11/2025 1 1 Encounter Details Date Type Department Care Team (Late st Contact Info) Description 04/11/2024 Transcribe Orders eDH Incoming Referrals [phone] Consuelo Guerrero DO [address] [place] [address] [address] [place] [address] Anemia, unspecified type Social History [...] [facility] Hematology Oncology [address] [place] [address] 05/12/2024 10:00 AM EDT Office Visit Hematology [place] [address] Markel Borjas MD [facility] DR HEMATOLOGY [place] [address] 03/01/2025 4:15 PM EDT Office Visit Dermatology at [place] [address] [place] [address] Marek Bonilla MD [address] [facility] [place] [place] [address] Scheduled Referrals Name Type Priority Associated Diagnoses Orde r Schedule Referral to Hematology and Oncology Outpatient Referral Routine Anemia, unspecified type Ordered: 04/11/2024 documented as of this encounter Visit Diagnoses Diagnosis Anemia, unspecified type Chronic idiopathic neutropenia Other neutropenia documented in this encounter Care Teams Tire Service Technician Relationship Specialty Start Date End Date Magdalena Acosta MD [address] [place] [address] PCP - General Family Medicine 02/05/23 documented as of this encounter
--- OUTSIDE RECORDS SUMMARY | 2024-05-09 15:19 | XMS_ITS | Encounter Summary ---
Author Organization [facility] Address [address] [place] [address] Care Team Providers Care Master Data Analyst Name Role Phone Scott Ashley WILLIAM Primary Care Provider [phone] Encounter Details Date Type Department Care Team (Late st Contact Info) Description 11/10/2013 Results Only [facility] [phone] Jeni Laird, CONSUMER ADVOCATE [address] [place], [place] [id number] Social History Tobacco Use Types Packs/Day Years [...] ? 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 Accession #: ? [id number] : ? 1955 (Age: 58) ??F ?Collect Date: ? 11/10/2013 Location: ? [facility] ? Receive Date: ? 11/14/2013 Provider: ?JENI LAIRD CONSUMER ADVOCATE Copy to: ? Specimen/Source: ?Pap Test, Endocervix, [...] Report PAUL ARELLANO 11/10/2013 11/14/2013 Jeni Laird CONSUMER ADVOCATE PATHOLOGY ORDERAB LES Performing Organization Address City/State/[facility] Co de Phone Number PAUL ARELLANO [address] [place] [address] documented in this encounter Visit Diagnoses Not on filedocumented in this encounter Care Teams Master Data Analyst Relationship Specialty Start Date End Date Ashley Chavez ARNP [address] [place] [address] PCP - General 07/11/10 documented as of this encounter
--- OUTSIDE RECORDS SUMMARY | 2024-05-09 15:19 | XMS_ITS | Encounter Summary ---
Author Organization [facility] Address [address] [place] [address] Care Team Providers Care Sand Technologist Name Role Phone Ashley Chavez Primary Care Provider [phone] Encounter Details Date Type Department Care Team (Late st Contact Info) Description 10/30/2022 Lab Requisition [facility] Pathology & Laboratory Medicine - [address] [address] Outr Resulting Lab, Provider Social History Tobacco [...] Stranded) <12.3 <30.0 IU/mL 11/03/2022 13:08 EDT [facility] Comment: ? Negative: ??<30.0 IU/mL ? Borderline Positive: ??30.0 - 75.0 IU/mL ? Positive: ??>75.0 IU/mL Results were obtained with the [employer] QUANTA Lite dsDNA SC DOMO assay on the [employer] DSX. Blood VENOUS BLOOD / Unknown 10/29/2022 14:00 EDT 10/30/2022 19:27 EDT Provider Outr Resulting Lab IMMUNOLOGY A ND SEROLOGY ORDERABLES Performing Organization Address [facility] de Phone Number [facility] [address] [place] [address] * SM (MORENO) ANTIBODY (10/29/2022 14:00 EDT) [facility] SM ([place]) Antibody 18.5 <20.0 Units 11/03/2022 14:26 EDT [facility] Comment: ? Negative: <20.0 [...] A ND SEROLOGY ORDERABLES Performing Organization Address [facility] de Phone Number [facility] [address] [place] [address] documented in this encounter Visit Diagnoses Not on filedocumented in this encounter Care Teams Sand Technologist Relationship Specialty Start Date End Date Ashley Chavez ARNP [address] [place] [address] PCP - General 07/11/10 documented as of this encounter
--- OUTSIDE RECORDS SUMMARY | 2024-05-09 15:19 | XMS_ITS | Encounter Summary ---
Author Organization [facility] Address [address] [place] [address] Care Team Providers Care Switchboard Operator Supervisor Name Role Phone Unavailable Primary Care Provider Unavailabl e Encounter Details Date Type Department Care Team (Late st Contact Info) Description 03/24/2007 Results Only [facility] Non-Invasive Cardiology - [facility] [address] [place], [place] [address] Ashley Chavez ARNP [address] [place] [address] Social History Tobacco Use Types Packs/Day Years [...] ? 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 Accession #: ? [id number] : ? 1955 (Age: 51) ??F ?Collect Date: ? 03/24/2007 Location: ? [facility] ? Receive Date: ? 03/28/2007 Provider: ?ASHLEY THOMAS Copy to: ? Specimen/Source: ?ThinPrep Pap Test, Endocervix, processed on [employer] ThinPrep Imaging System, with manual evaluation [...] Ashley THOMAS PATHOLOGY ORDERABLES PAUL ARELLANO [address] [place] [address] documented in this encounter Visit Diagnoses Not on filedocumented in this encounter
--- OUTSIDE RECORDS SUMMARY | 2024-05-09 15:19 | XMS_ITS | Clinical Summary ---
Author Organization [facility] Address [address] [place] [address] Care Team Providers Care Wallpaper Scraper Name Role Phone Ashley Chavez Primary Care Provider [phone] Encounters Date Type Department Care Team Description 03/22/2024 Lab Requisition [facility] Pathology & Laboratory [address] [address] Consuelo Guerrero, DO Diaphragmatic hernia without obstruction or gangrene; Anemia, unspecified 03/21/2024 Lab Requisition [facility] Pathology & Laboratory [address] [address] Consuelo Guerrero, DO Encounter for other general examination 03/21/2024 Lab Requisition [facility] Pathology & Laboratory [address] [address] Outr Resulting Lab, Provider from Last 3 [...] 13:00 EDT) LORY Negative 03/21/2024 22:31 EDT [facility] Blood VENOUS BLOOD / Unknown 03/21/2024 13:00 EDT 03/21/2024 21:51 EDT Consuelo Guerrero DO BLOOD BANK TESTS Performing Organization Address [facility] Co de Phone Number [facility] [address] [place] [address] * HAPTOGLOBIN (03/21/2024 13:00 EDT) Haptoglobin 183 32 - 197 mg/dL 03/22/2024 10:25 EDT [facility] Blood VENOUS BLOOD / Unknown 03/21/2024 13:00 EDT 03/21/2024 21:50 EDT Provider Outr Resulting Lab CHEMISTRY & BLOOD GAS ORDERABLES Performing Organization Address [facility]/ZIP Co de Phone Number [facility] [address] [place], [place] [address] * SURGICAL PATHOLOGY (03/21/2024 11:35 EDT) Note to Patient The following pathology results have been interpreted by your pathologist and may be available to you before your health provider has had the opportunity to review them. Please allow time for your provider to receive these results and explore management options, if applicable. 03/24/2024 10:36 EDT [facility] Final Diagnosis A. JEJUNUM, [...] - Deeper sections x3 examined. 03/24/2024 10:36 [facility] Attestation There was significant resident/fellow involvement in the diagnostic evaluation of this case. By the signature below, the attending physician certifies that they have personally conducted a gross and/or microscopic examination of the described specimens and rendered or confirmed the above diagnosis. 03/24/2024 10:36 [facility] at 1036 Clinical History Anemia, hiatal hernia, 38 cm aguayo diverticulosis 03/24/2024 10:36 [facility] Gross Description A. [...] x 0.2 cm). Submitted intact in G1. Lusi Torres 03/22/2024 9:36 03/24/2024 10:36 EDT [facility] Resident/Estuardo w: Luis Felipe Bragg DO 03/24/2024 10:36 EDT [facility] Performing Lab [facility] 10:36 EDT [facility] Scanned Images 03/24/2024 10:36 EDT [facility] Tissue POLYP OF COLON [...] 8:19 EDT Consuelo Guerrero DO PATHOLOGY ORDERABLES [facility] [address] [place] [address] from Last 3 Months Care Teams Wallpaper Scraper Relationship Specialty Start Date End Date Ashley Chavez ARNP [address] [place] [address] PCP - General 07/11/10
--- OUTSIDE RECORDS SUMMARY | 2024-05-09 15:19 | XMS_ITS | Encounter Summary ---
Author Organization [place] [address] Care Team Providers Care Client Solutions Specialist Name Role Phone Magdalena Acosta MD Primary Care Provider [phone] Encounter Details Date Type Department Care Team (Late st Contact Info) Description 12/02/2023 11:15 AM EDT [place] [address] Magdalena Peralta MD [facility] [place] [address] Mixed connective tissue disease Social History Tobacco [...] 1:5120 speckled; VIC negative; Myositis panel with ZIPPER REPAIRER ab 149.1 (positive); Anti U1RNP IgG [...] questions that she sent via [facility] ahead of her visit, which we [...] exposure. She has an appointment with her Air Intercept Controller Supervisor scheduled in January. (Dr Bonilla in [place]) ROS (positives in bold): Gen: no fevers, [...] but I encouraged her to contact her Air Intercept Controller Supervisor to see if she could have her [...] Dr. Tanisha Peralta MD Rheumatology Fellow Pager: [phone] * Federico Yee MD - 12/02/2023 11:15 [...] [facility] Hematology Oncology [address] [place] [address] 05/12/2024 10:00 AM EDT Office Visit [place] [address] Markel Borjas MD [facility] DR [place] [address] 03/01/2025 4:15 PM EDT Office Visit Dermatology at [address] [phone] Marek Bonilla MD [address] [facility] [place] [address] Scheduled Orders Name Type Priority Associated Diagnoses Orde r Schedule EKG 12 Lead ECG Routine Mixed connective tissue disease Expected: 12/02/2023, Expires: 06/03/2024 documented as of this encounter Visit Diagnoses Diagnosis Mixed connective tissue disease Other specified diffuse disease of connective tissue Chronic idiopathic neutropenia Other neutropenia documented in this encounter Care Teams Client Solutions Specialist Relationship Specialty Start Date End Date Magdalena Acosta MD [address] [place] [address] PCP - General Family Medicine 02/05/23 documented as of this encounter
--- OUTSIDE RECORDS SUMMARY | 2024-05-09 15:19 | XMS_ITS | Encounter Summary ---
Author Organization [facility] Address [address] [place] [address] Care Team Providers Care Respooler Name Role Phone Unavailable Primary Care Provider Unavailabl e Encounter Details Date Type Department Care Team (Late st Contact Info) Description 03/24/2007 11:06 EDT - 03/24/2007 11:59 EDT Hospital Encounter [facility] - Other [address] [place] [address] Ashley Chavez ARNP [address] [place] [address] Discharge Disposition: Home or Self Care Social [...]
--- OUTSIDE RECORDS SUMMARY | 2024-05-09 15:19 | XMS_ITS | Encounter Summary ---
Author Organization [facility] Address [address] [place] [address] Care Team Providers Care Oil Burner Installer Name Role Phone Ashley Chavez Primary Care Provider [phone] Encounter Details Date Type Department Care Team (Late st Contact Info) Description 03/21/2024 Lab Requisition [facility] Pathology & Laboratory Medicine - [address] [id number] Outr Resulting Lab, Provider Social History Tobacco [...] 32 - 197 mg/dL 03/22/2024 10:25 EDT [facility] Blood VENOUS BLOOD / Unknown 03/21/2024 13:00 EDT 03/21/2024 21:50 EDT Provider Outr Resulting Lab CHEMISTRY & BLOOD GAS ORDERABLES [facility] [address] [place] [address] documented in this encounter Visit Diagnoses Not on filedocumented in this encounter Care Teams Oil Burner Installer Relationship Specialty Start Date End Date Ashley Chavez ARNP [address] [place] [address] PCP - General 07/11/10 documented as of this encounter
--- OUTSIDE RECORDS SUMMARY | 2024-05-09 15:19 | XMS_ITS | Clinical Summary ---
Author Organization [facility] Address [facility] [place] [address] Care Team Providers Care Mend Worker Name Role Phone Magdalena Acosta MD Primary Care Provider [phone] Allergies No known active allergies Medications Medication [...] fraction 05/08/2023 Mild coronary artery disease by [facility] 11/09/2022 Heart failure with reduced e [...] Description 04/11/2024 Transcribe Orders eDH Incoming Referrals [phone] Consuelo Guerrero, DO Anemia, unspecified type 03/01/2024 Telephone Cardiology at [address] [address] Cynthia Monsalve RN Pre Procedure Call (DAPT hold for EGD and colo?) 02/22/2024 4:15 PM EDT Office Visit Dermatology at [address] [place] [address] Marek Bonilla MD Seborrheic keratosis; Rosacea; Nevus [...] [facility] Hematology Oncology [address] [place] [address] 05/12/2024 10:00 AM EDT Office Visit Hematology [place] [address] Markel Borjas MD [facility] [address] [place] [address] 03/01/2025 4:15 PM EDT Office Visit Dermatology at [place] [address] [place] [address] Marek Bonilla MD [address], [place] [address] Health Maintenance Due Date Last [...] 06/05/2036 06/05/2021 Medical Devices Implanted Type Area Building Official Device Identifier Shelf Expiration Date Model / Serial / Lot Valve,Aor,Pericar d,Magna,25mm ([id number]) - [id number] Implanted:Qty: 1 on 09/21/2016 by Alirio Esparza MD at [facility] IMPLANTS N/A: Heart DO NOT USE [employer] - [id number] 06/02/2020 [id number] / / [id number] Cable,Blnt,Ss,38i n ([id number]) - [id number] Implanted:Qty: 4 on 09/21/2016 by Alirio Esparza MD at [facility] IMPLANTS N/A: Chest [employer] - [id number] 04/29/2021 [id number] / / [id number] Patch,Cav,Pericar d,2x5cm ([id number]) (Autoreq) - [id number] Implanted:Qty: 1 on 09/21/2016 by Alirio Esparza MD at [facility] IMPLANTS N/A: Heart DO NOT USE [employer] - [id number] 04/21/2018 [id number] / / [id number] Tavr-05/12/2023 Implanted:Qty: 1 on 05/12/2023 by Antelmo Sharma MD Other Heart [employer] - JAIME LI [id number] / [id number] / Description:[employer] NCES ABBY 3 ULTRA [...] EST) Glucose 93 65 - 199 mg/dL [facility] Comment:Diabetes: >=200 mg/d L plus symptoms Blood Urea Nitrogen 19(H) 8 - 18 mg/dL [facility] Creatinine 0.81 0.70 - 1.20 mg/dL [facility] Sodium 142 135 - 145 mmol/L [facility] Potassium 3.8 3.5 - 5.0 mmol/L [facility] Comment: Please note: ??Patients with WBC >100,000 may have falsely elevated Potassium levels. ??For accurate Potassium quantification in these patients send serum separator tube (gold top) for subsequent determinations. ??Contact the Clinical Chemistry Laboratory if there are any questions. Chloride 104 98 - 107 mmol/L [facility] Carbon Dioxide 26 22 - 31 mmol/L [facility] Anion Gap 12 5 - 15 mmol/L [facility] Calcium 10.2 8.5 - 10.5 mg/dL [facility] Protein, Total 7.4 6.1 - 8.0 g/dL [facility] Albumin 4.1 3.2 - 5.2 g/dL [facility] Aspartate Aminotransferase 24 0 - 30 unit/L [facility] Alanine Aminotransferase 12 0 - 30 unit/L [facility] Alkaline Phosphatase 93 35 - 105 unit/L [facility] Bilirubin, Total 0.3 0.2 - 1.3 mg/dL [facility] Est Glomerular Filtration Rate 80 >=60 mL/min/1. 73 m?? [facility] Comment: This patient's estimated [...] Lab Alirio Esparza MD CHEMISTRY ORDERABLE S [facility] [place] [address] * DXA Central Spine, Hip, and/or Whole Body (Generic) (06/05/2021 11:58 AM EDT) PT CLASS O RAD ADMITDTTM RAD PT RAD INFO [id number]^E VERETT^DEBORAH ^E RAD EXAM DESC XDXAC^DEXA SCAN [...] questions please contact the health pet care attendant that requested your imaging first. ? Electronically signed by: Rocael Villatoro MD, [facility] ([phone]), at 06/05/2021 12:00 PM Narrative 06/05/2021 12:00 [...] have questions please contactthe health pet care attendant that requested your imaging first. Electronically signed by: Rocael Villatoro MD, [facility]([phone]), at 06/05/2021 12:00 PM Deborah Quiroga SEWING MACHINE TESTER IMG DEXA ORDERABLES * Mammo Screening Cad Bilateral (06/05/2021 11:42 AM EDT) PT CLASS O RAD ADMITDTTM RAD PT RAD INFO [id number]^EV ERETT^DEBORAH^E RAD EXAM DESC MADDSC^SCREEN MAMMO BL [...] questions please contact the health pet care attendant that requested your imaging first. ? Electronically signed by: Rocael Villatoro MD, [facility] ([phone]), at 06/05/2021 1:27 PM Narrative 06/05/2021 1:27 [...] have questions please contactthe health pet care attendant that requested your imaging first. Electronically signed by: Rocael Villatoro MD, [facility]([phone]), at 06/05/2021 1:27 PM Deborah Quiroga APRN [...] capacity to make decision: Yes Care Teams Mend Worker Relationship Specialty Start Date End Date Magdalena Acosta MD [address] [place] [address] PCP - General Family Medicine 02/05/23
--- OUTSIDE RECORDS SUMMARY | 2024-05-09 15:19 | XMS_ITS | Encounter Summary ---
[place] [address] Care Team Providers Care Silver Miner Blasting Name Role Phone Magdalena Acosta MD Primary Care Provider [phone] Reason for Visit * Reason Comments Annual Exam Encounter Details Date Type Department Care Team (Late st Contact Info) Description 02/22/2024 4:15 PM EDT Office Visit Dermatology at [address] [phone] Marek Bonilla MD [address] [facility] A DERMATOLOGY [place], [place] [phone] Seborrheic keratosis; Rosacea; Nevus Social History Tobacco [...] cutaneous and ocular 3. Previously told by bead picker that she had corneal tears from her [...] [facility] Hematology Oncology [address] [place] [address] 05/12/2024 10:00 AM EDT Office Visit Hematology [place] [address] Markel Borjas MD [facility] DR HEMATOLOGY [place] [address] 03/01/2025 4:15 PM EDT Office Visit Dermatology at [place] [address] [facility] [place] [phone] Marek Bonilla MD [address] [facility], [place] [address] documented as of this encounter Visit Diagnoses Diagnosis Seborrheic keratosis Other seborrheic keratosis Rosacea Nevus Benign neoplasm of skin, site unspecified Chronic idiopathic neutropenia Other neutropenia documented in this encounter Care Teams Silver Miner Blasting Relationship Specialty Start Date End Date Magdalena Acosta MD [address] [place] [address] PCP - General Family Medicine 02/05/23 documented as of this encounter
--- OUTSIDE RECORDS SUMMARY | 2024-05-09 15:19 | XMS_ITS | Encounter Summary ---
Author Organization [facility] Address [address] [place] [address] Care Team Providers Care Brace Maker Name Role Phone Unavailable Primary Care Provider Unavailabl e Encounter Details Date Type Department Care Team (Late st Contact Info) Description 04/20/2005 Results Only [facility] - Maple conversion [address] [place] [address] Ziggy Valiente MD [address] [place] [phone] Social History Tobacco Use Types Packs/Day Years [...] ? 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 Accession #: ? [id number] ? : ? 1955 (Age: 49) ??F [...] is entirely submitted in one cassette. ??(Arabella Santos)/[facility] End of Report PAUL ARELLANO 04/20/2005 04/21/2005 15: 04 EDT Ziggy Valiente MD PATHOLOGY ORDERABLES PAUL ARELLANO [address] [place] [address] documented in this encounter Visit Diagnoses Not on filedocumented in this encounter
--- OUTSIDE RECORDS SUMMARY | 2024-05-09 15:19 | XMS_ITS | Encounter Summary ---
Author Organization [facility] Address [address] [place] [address] Care Team Providers Care Interior Assemblies Developer Prover Name Role Phone Scott, Ashley WILLIAM Primary Care Provider [phone] Encounter Details Date Type Department Care Team (Late st Contact Info) Description 12/23/2016 Results Only [facility] [phone] Deborah Quiroga, PRODUCT SUPPORT SPECIALIST [address] [place] [phone] Social History Tobacco Use Types Packs/Day Years [...] ? PURNIMA THACKER ? Accession #: ? [id number] ? : ? 1955 (Age: 61) ??F ?Collect Date: ? 12/23/2016 ? Location: ? [facility] ? Receive Date: ? 12/25/2016 ? Provider: DEBORAH QUIROGA MOBILITY SCOOTER REPAIRER Copy to: ? Final Report SPECIMEN ADEQUACY ? Satisfactory for Evaluation - transformation zone component present GENERAL CATEGORIZATION ? Negative for Intraepithelial Lesion or Malignancy ?? Last Menstrual Period: years Specimen/Source: ??Pap Test, Cervix, ThinPrep Imaging System with manual evaluation Document reviewed and electronically signed by: ? Monica Cason [facility](ASCP) ? Report ??Date: 01/06/2017 09:11 HPV with Pap Test ? Date Ordered: ? 01/06/2017 ? Status: ?? Signed Out ?Date Complete: ? 01/07/2017 ? By: ??System Interface ? Date Reported: ? 01/07/2017 ? Interpretation RESULT: Negative for HPV. No E6 or E7 mRNA is detected from HPV types 16,18,31,33,35, 39,45,51,52,56,58, 59,66, and 68 by chronic condition nurse mediated amplification. Comments Document reviewed and electronically signed by: ? System Interface ? Report date: 01/07/2017 By the signature above, the attending physician certifies that he/she has personally conducted a gross and/or microscopic examination of the described specimens and rendered or confirmed the above diagnosis. End of Report [facility] 12/23/2016 12/25/2016 Deborah Quiroga PRODUCT SUPPORT SPECIALIST PATHOLOGY ORDERABLES [facility] [address] [place] [address] documented in this encounter Visit Diagnoses Not on filedocumented in this encounter Care Teams Interior Assemblies Developer Prover Relationship Specialty Start Date End Date Ashley Chavez ARNP [address] [place] [address] PCP - General 07/11/10 documented as of this encounter
--- OUTSIDE RECORDS SUMMARY | 2024-05-09 15:19 | XMS_ITS | Encounter Summary ---
Author Organization [facility] Address [address] [place] [address] Care Team Providers Care Cone Runner Name Role Phone Unavailable Primary Care Provider Unavailabl e Encounter Details Date Type Department Care Team (Late st Contact Info) Description 07/08/2010 Results Only [facility] - [facility] [address] [place] [address] Ashley Chavez, WILLIAM [address] [place] [address] Social History Tobacco Use Types Packs/Day Years [...] ? PURNIMA THACKER ? Accession #: ? [id number] ? : ? 1955 (Age: 54) ??F [...] Ashley THOMAS PATHOLOGY ORDERABLES PAUL ARELLANO [address] [place] [address] documented in this encounter Visit Diagnoses Not on filedocumented in this encounter
--- OUTSIDE RECORDS SUMMARY | 2024-05-09 15:19 | XMS_ITS | Encounter Summary ---
Author Organization [facility] Address [address] [place] [address] Care Team Providers Care Freight Dispatcher Name Role Phone Unavailable Primary Care Provider Unavailabl e Encounter Details Date Type Department Care Team (Late st Contact Info) Description 07/08/2010 10:55 EST - 07/08/2010 10:56 EST Hospital Encounter [facility] - Other [address] [place] [address] Ashley Chavez, WILLIAM [address] [place] [address] Discharge Disposition: Home or Self Care Social [...]
--- OUTSIDE RECORDS SUMMARY | 2024-05-09 15:19 | XMS_ITS | Encounter Summary ---
Author Organization [facility] Address [address] [place] [address] Care Team Providers Care Assistant Speech Language Pathologist Name Role Phone Ashley Chavez Primary Care Provider [phone] Encounter Details Date Type Department Care Team (Late st Contact Info) Description 05/12/2022 Lab Requisition [facility] Pathology & Laboratory Medicine - [address] [phone] Outr Resulting Lab, Provider Social History Tobacco [...] 14:32 EDT) Hold Hold 05/12/2022 22:46 EDT [facility] Blood VENOUS BLOOD / Unknown 05/12/2022 14:32 EDT 05/12/2022 21:40 EDT Provider Outr Resulting Lab LAB INFO SER VICE AND SUPPORT & PHONE RESULT Performing Organization Address [facility]/ZIP Co de Phone Number [facility] [address] [place] [address] * (ABNORMAL) HOMOCYSTEINE (05/12/2022 14:32 EDT) Homocysteine 14.7(H) 5.0 - 13.9 umol/L 05/13/2022 9:05 EDT [facility] Comment:Results may be false ly elevated if sample is not collected on ice or is not removed from cells within 1 hour of collection. Blood VENOUS BLOOD / Unknown 05/12/2022 14:32 EDT 05/12/2022 21:40 EDT Narrative [facility] - 05/13/2022 9:05 [...] GAS ORDERABLES Performing Organization Address [facility] Co de Phone Number [facility] [address] [place] [address] * HAPTOGLOBIN (05/12/2022 14:32 EDT) Pathologist [facility] Haptoglobin 138 32 - 197 mg/dL 05/13/2022 9:55 EDT [facility] Blood VENOUS BLOOD / Unknown 05/12/2022 14:32 EDT 05/12/2022 21:36 EDT Provider Outr Resulting Lab CHEMISTRY & BLOOD GAS ORDERABLES Performing Organization Address [facility] Co de Phone Number [facility] [address] [place] [address] * (ABNORMAL) ANTI NUCLEAR AB (FRANCISCO), IFA (05/12/2022 14:32 EDT) FRANCISCO Interpretation Positive(A) Negative 05/13/2022 14:44 EDT [facility] Comment: Result is [...] Pattern 1 1:5120 Speckled 05/13/2022 14:44 EDT [facility] Blood VENOUS BLOOD / Unknown 05/12/2022 14:32 EDT 05/12/2022 21:36 EDT Narrative [facility] - 05/13/2022 14:44 EDT Results were obtained with the INOVA NOVA Lite HEp-2 FRANCISCO Kit by indirect immunofluorescence. Provider Outr Resulting Lab IMMUNOLOGY A ND SEROLOGY ORDERABLES [facility] [address] [place] [address] documented in this encounter Visit Diagnoses Not on filedocumented in this encounter Care Teams Assistant Speech Language Pathologist Relationship Specialty Start Date End Date Ashley Chavez ARNP [address] [place] [address] PCP - General 07/11/10 documented as of this encounter
--- OUTSIDE RECORDS SUMMARY | 2024-05-09 15:19 | XMS_ITS | Encounter Summary ---
Author Organization [facility] [place] [address] Care Team Providers Care Bench Assembler Operator Name Role Phone Magdalena Acosta MD Primary Care Provider [phone] Encounter Details Date Type Department Care Team (Latest Contact Info) Description 10/05/2023 10:52 AM EST - 10/05/2023 11:59 PM [facility] Hospital [place] [address] Mixed connective tissue disease Discharge Disposition: Home [...] topically 2 times daily as needed. 10/22/2022 ticagrelor (Brilinta) 90 mg tablet Take 90 [...] [facility] Hematology Oncology [address] [place] [address] 05/12/2024 10:00 AM EDT Office Visit Hematology [place] [address] Markel Borjas MD [facility] [facility] [address] [place] [address] 03/01/2025 4:15 PM EDT Office Visit Dermatology at [place] [address] [place] [address] Marek Bonilla MD [address] [place] [address] documented as of this encounter Procedures Procedure [...] PFT FEV1/FVC Pre-BD Z-Score 0 COMPAS PFT LBM44-73 Actual Pre-BD 2.41 % COMPAS PFT KOV21-93 Predicted 1.8 % COMPAS PFT UFM89-64 Pre-BD % of Predicted 134 % COMPAS PFT UPE52-60 Pre-BD Z-Score 0.81 COMPAS PFT DLCO Hb [...] neutropenia documented in this encounter Care Teams Bench Assembler Operator Relationship Specialty Start Date End Date Magdalena Acosta MD [address] [place] [address] PCP - General Family Medicine 02/05/23 documented as of this encounter
--- OUTSIDE RECORDS SUMMARY | 2024-05-09 15:19 | XMS_ITS | Encounter Summary ---
Author Organization [facility] [place] [address] Care Team Providers Care Quantitative Software Engineer Name Role Phone Magdalena Acosta MD Primary Care Provider [phone] Reason for Referral * Diagnostic Test (Routine) - New Request Specialty Diagnoses / Procedures Referred By Contac t Referred To Contact Cardiology Diagnoses S/P TAVR (transcatheter aortic valve replacement) Procedures Echocardiogram Transthoracic Antelmo Sharma MD [facility] [place] [address] [facility] [place] [address] Referral ID Status Reason Start Date Expiration Date Visits Requested Visits Authorized [id number] New Request Specialty Service Requested 12/16/2023 12/15/2024 1 1 Encounter Details Date Type Department Care Team (Late st Contact Info) Description 12/16/2023 Orders Only Cardiology at [address] [address] Antelmo Sharma MD [facility] [place] [address] S/P TAVR (transcatheter aortic valve [...] [facility] Hematology Oncology [address] [place] [address] 05/12/2024 10:00 AM EDT Office Visit [place]ology [place] [address] Markel Borjas MD [facility] [address] [place] [address] 03/01/2025 4:15 PM EDT Office Visit Dermatology at [place] [address] [place] [address] Marek Bonilla MD [address], [place] [address] Scheduled Orders Name Type Priority Associated Diagnoses [...] Diagnosis S/P TAVR (transcatheter aortic valve replacement) Chronic idiopathic neutropenia Other neutropenia documented in this encounter Care Teams Quantitative Software Engineer Relationship Specialty Start Date End Date Magdalena Acosta MD [address] [place] [address] PCP - General Family Medicine 02/05/23 documented as of this encounter
--- OUTSIDE RECORDS SUMMARY | 2024-05-09 15:19 | XMS_ITS | Encounter Summary ---
[place] [address] Care Team Providers Care Weights And Measures Inspector Name Role Phone Magdalena Acosta MD Primary Care Provider [phone] Reason for Visit * Reason Onset Date Comments Pre Procedure Call 03/01/2024 DAPT hold for EGD and colo? Encounter Details Date Type Department Care Team (Late st Contact Info) Description 03/01/2024 Telephone Cardiology at [address] [phone] Cynthia Monsalve RN Pre Procedure Call (DAPT [...] safe. Jay Message above left with Yenifer (crew scheduler), who would be leaving this note in patient's chart for providers to schedule patient. No further questions or needs at this time. This nurse stated, note will be placed regarding this call in our chart for patient. Kezia Whitney RN, BSN Ambulatory Cardiology Clinic, [facility] [phone] * Telephone Encounter - Cynthia Monsalve RN - 03/01/2024 2:09 PM EDT Nurse Veronica from [facility] called, requesting a hold on ASA and/or Plavix for the patient's anticipated EGD and colonoscopy. -Cynthia Monsalve RN documented in this encounter Plan of Treatment Upcoming Encounters Date Type Department Care Team (Late st Contact Info) Description 05/12/2024 9:00 AM EDT Laboratory Appointment Lab at [facility] Hematology Oncology [address] [place] [address] 05/12/2024 10:00 AM EDT Office Visit Hematology [place] [address] Markel Borjas MD [facility] [address] [place] [address] 03/01/2025 4:15 PM EDT Office Visit Dermatology at [place] [address] [place] [address] Marek Bonilla MD [address], [place] [address] documented as of this encounter Visit Diagnoses Not on filedocumented in this encounter Care Teams Weights And Measures Inspector Relationship Specialty Start Date End Date Magdalena Acosta MD [address] [place] [address] PCP - General Family Medicine 02/05/23 documented as of this encounter
--- OUTSIDE RECORDS SUMMARY | 2024-05-09 15:19 | XMS_ITS | Encounter Summary ---
Author Organization [facility] Address [address] [place] [address] Care Team Providers Care Loop Tacker Name Role Phone Ashley Chavez Primary Care Provider [phone] Encounter Details Date Type Department Care Team (Late st Contact Info) Description 03/22/2024 Lab Requisition [facility] Pathology & Laboratory Medicine - [address] [address] Consuelo Guerrero, DO [address] [place], [place] [phone] Diaphragmatic hernia without obstruction or gangrene; Anemia, [...] explore management options, if applicable. 03/24/2024 10:36 [facility] Final Diagnosis A. [...] - Deeper sections x3 examined. 03/24/2024 10:36 [facility] Attestation There was significant resident/fellow involvement in the diagnostic evaluation of this case. By the signature below, the attending physician certifies that they have personally conducted a gross and/or microscopic examination of the described specimens and rendered or confirmed the above diagnosis. 03/24/2024 10:36 [facility] at 1036 Clinical History Anemia, hiatal hernia, 38 cm aguayo diverticulosis 03/24/2024 10:36 [facility] Gross Description A. [...] Luis Torres 03/22/2024 9:36 03/24/2024 10:36 EDT [facility] Resident/Estuardo w: Luis Felipe Bragg DO 03/24/2024 10:36 T [facility] Performing Lab [facility] 10:36 T [facility] Scanned Images 03/24/2024 10:36 T [facility] Tissue POLYP OF COLON [...] 8:19 EDT Consuelo Guerrero DO PATHOLOGY ORDERABLES [facility] [address] [place] [address] documented in this encounter Visit Diagnoses Diagnosis Diaphragmatic hernia without obstruction or gangrene Diaphragmatic hernia without mention of obstruction or gangrene Anemia, unspecified documented in this encounter Care Teams Loop Tacker Relationship Specialty Start Date End Date Ashley Chavez ARNP [address] [place] [address] PCP - General 07/11/10 documented as of this encounter
--- OUTSIDE RECORDS SUMMARY | 2024-05-09 15:19 | XMS_ITS | Encounter Summary ---
Author Organization [facility] Address [address] [place] [address] Care Team Providers Care Sweatband Flanger Name Role Phone Ashley Chavez Primary Care Provider [phone] Encounter Details Date Type Department Care Team (Late st Contact Info) Description 12/17/2021 Lab Requisition [facility] Pathology & Laboratory Medicine - [address] [address] Outr Resulting Lab, Provider Social History Tobacco [...] Lyme Ab Negative Negative 12/18/2021 10:37 EDT [facility] Blood VENOUS BLOOD / Unknown 12/17/2021 13:30 EDT 12/17/2021 21:32 EDT Provider Outr Resulting Lab IMMUNOLOGY A ND SEROLOGY ORDERABLES Performing Organization Address [facility] Co de Phone Number [facility] [address] [place] [address] * (ABNORMAL) ANTI NUCLEAR AB (FRANCISCO), IFA (12/17/2021 13:30 EDT) FRANCISCO Interpretation Positive(A) Negative 12/18/2021 16:06 EDT [facility] Comment: For titers greater than [...] Pattern 1 1:1280 Speckled 12/18/2021 16:06 EDT [facility] Blood VENOUS BLOOD / Unknown 12/17/2021 13:30 EDT 12/17/2021 21:32 EDT Narrative [facility] - 12/18/2021 16:06 EDT Results were obtained with the INOVA NOVA Lite HEp-2 FRANCISCO Kit by indirect immunofluorescence. Provider Outr Resulting Lab IMMUNOLOGY A ND SEROLOGY ORDERABLES Performing Organization Address [facility] Co de Phone Number [facility] [address] [place] [address] documented in this encounter Visit Diagnoses Not on filedocumented in this encounter Care Teams Sweatband Flanger Relationship Specialty Start Date End Date Ashley Chavez ARNP [address] [place] [address] PCP - General 07/11/10 documented as of this encounter
--- OUTSIDE RECORDS SUMMARY | 2024-05-09 15:19 | XMS_ITS | Encounter Summary ---
Author Organization [facility] Address [address] [place] [address] Care Team Providers Care Band Builder Name Role Phone Ashley Chavez Primary Care Provider [phone] Encounter Details Date Type Department Care Team (Late st Contact Info) Description 01/07/2023 Lab Requisition [facility] Pathology & Laboratory Medicine - [address] [phone] Outr Resulting Lab, Provider Social History Tobacco [...] 55.8 - 66.1 % 01/08/2023 11:28 [facility] Albumin g/dL 3.9 3.6 - 5.2 g/dL 01/08/2023 11:28 [facility] Alpha-1 % 5.1(H) 2.9 - 4.9 % 01/08/2023 11:28 [facility] Alpha-1 g/dL 0.40 0.15 - 0.40 g/dL 01/08/2023 11:28 [facility] Alpha-2 % 7.0(L) 7.1 - 11.8 % 01/08/2023 11:28 [facility] Alpha-2 g/dL 0.50 0.50 - 1.00 g/dL 01/08/2023 11:28 [facility] Beta % 12.7 8.4 - 13.1 % 01/08/2023 11:28 [facility] Beta g/dL 0.90 0.60 - 1.20 g/dL 01/08/2023 11:28 [facility] Gamma % 19.0(H) 11.1 - 18.8 % 01/08/2023 11:28 [facility] Gamma g/dL 1.30 0.60 - 1.60 g/dL 01/08/2023 11:28 [facility] SPEP Comment No apparent monoclonal protein seen on serum electrophoresis 01/08/2023 11:28 [facility] Comment:See scanned/suppleme ntary report. Total Protein 6.9 6.3 - 8.2 g/dL 01/08/2023 11:28 [facility] Blood VENOUS BLOOD / Unknown 01/06/2023 14:40 EDT 01/07/2023 17:37 EDT Provider Outr Resulting Lab CHEMISTRY & BLOOD GAS ORDERABLES Performing Organization Address City/State/[facility] Co de Phone Number [facility] [address] [place] [address] * PROTEIN, TOTAL (01/06/2023 14:40 EDT) Blood VENOUS BLOOD / Unknown 01/06/2023 14:40 EDT 01/07/2023 17:37 EDT Provider Outr Resulting Lab CHEMISTRY & BLOOD GAS ORDERABLES Performing Organization Address [facility] Co de Phone Number [facility] [address] [place] [address] * (ABNORMAL) EXTRACTABLE NUCLEAR ANTIGEN PANEL (01/06/2023 14:40 EDT) SSA Antibody 1.3 <20.0 Units 01/08/2023 15:42 EDT [facility] Comment: ? Negative: <20.0 [...] Antibody 1.5 <20.0 Units 01/08/2023 15:42 EDT [facility] Comment: ? Negative: <20.0 [...] Antibody 15.3 <20.0 Units 01/08/2023 15:42 EDT [facility] Comment: ? Negative: <20.0 Units ? Weak Positive: 20.0 - 39.9 Units ? Moderate Positive: 40.0 - 80.0 Units ? Strong Positive: >80.0 Units Results were obtained with the [employer]VA QUANTA Lite Sm DOMO. ??Sm values obtained with different manufacturers' assay methods may not be used interchangeably. ??The magnitude of the reported IgG levels cannot be correlated to an endpoint titer. RN PEDIATRIC Antibody 149.1(H) <20.0 Units 01/08/2023 15:42 EDT [facility] Comment: ? Negative: <20.0 Units ? Weak Positive: 20.0 - 39.9 Units ? Moderate Positive: 40.0 - 80.0 Units ? Strong Positive: >80.0 Units Results were obtained with the Pathway Medical Technologiesva Quanta Lite RN PEDIATRIC DOMO. RN PEDIATRIC values obtained with different transformer tester's assay methods may not be used interchangeaby. ??The magnitude of the reported IgG levels cannot be be correlated to an endpoint titer. A positive result in the Quanta Lite RN PEDIATRIC DOMO indicates the presence of antibodies reactive with the RN PEDIATRIC/Sm complex but cannot distinguish between anti-Sm and anti-RN PEDIATRIC activity. Blood VENOUS BLOOD / Unknown 01/06/2023 14:40 EDT 01/07/2023 17:37 EDT Provider Outr Resulting Lab IMMUNOLOGY A ND SEROLOGY ORDERABLES [facility] [address] [place] [address] * (ABNORMAL) ANTI NUCLEAR AB (FRANCISCO), IFA (01/06/2023 14:40 EDT) FRANCISCO Interpretation Positive(A) Negative 01/08/2023 15:22 EDT [facility] Comment: Result is equal to or greater than 1:5120. For titers greater than or equal to 1:160 (except the centromere, nucleolar, and dense fine speckled patterns) it is recommended that specific, follow-up autoantibody testing (such as for dsDNA and Extractable Nuclear Antigens) be performed on all diffuse and/or speckled patterns. FRANCISCO Titer and Pattern 1 1:5120 Speckled 01/08/2023 15:22 EDT [facility] Blood VENOUS BLOOD / Unknown 01/06/2023 14:40 EDT 01/07/2023 17:37 EDT Narrative [facility] - 01/08/2023 15:22 EDT Results were obtained with the INOVA NOVA Lite HEp-2 FRANCISCO Kit by indirect immunofluorescence. Provider Outr Resulting Lab IMMUNOLOGY A ND SEROLOGY ORDERABLES Performing Organization Address City/State/[facility] Co de Phone Number [facility] [address] [place] [address] documented in this encounter Visit Diagnoses Not on filedocumented in this encounter Care Teams Band Builder Relationship Specialty Start Date End Date Ashley Chavez ARNP [address] [place] [address] PCP - General 07/11/10 documented as of this encounter
--- OUTSIDE RECORDS SUMMARY | 2024-05-09 15:19 | XMS_ITS | Encounter Summary ---
Author Organization [facility] Address [address] [place] [address] Care Team Providers Care Ton Cylinder Inspector Name Role Phone Ashley Chavez Primary Care Provider [phone] Encounter Details Date Type Department Care Team (Latest Contact Info) Description 05/12/2019 13:18 EDT - 05/12/2019 23:59 EDT Hospital Encounter [address] [address] Unknown, Provider, Discharge Disposition: Home or Self [...] on filedocumented in this encounter Care Teams Ton Cylinder Inspector Relationship Specialty Start Date End Date Ashley Chavez ARNP [address] [place] [address] PCP - General 07/11/10 documented as of this encounter
--- OUTSIDE RECORDS SUMMARY | 2024-05-09 15:19 | XMS_ITS | Encounter Summary ---
Author Organization [place] [address] Care Team Providers Care Pear Picker Name Role Phone Magdalena Acosta MD Primary Care Provider [phone] Reason for Visit * Reason Comments Coronary Artery Disease Hypertension Aortic Stenosis Encounter Details Date Type Department Care Team (Latest Contact Info) Description 07/20/2023 4:40 PM EST TH Visit (TeleHealth) Cardiology at [address] [address] Jay Maza PA [facility] [place] [address] HFrEF (heart failure with reduced ejection fraction); [...] PA - 07/20/2023 4:40 PM EST [facility] Heart & Vascular Center [...] lieu of an in person office visit. Sports Fitness And Wellness Director: Antelmo Sharma MD ([facility] Cards) Maria Luz Mejia MD ([facility] / [facility] cards) [...] Mild coronary artery disease by [facility] 11/09/2022 I25.10 Heart failure with reduced [...] notable for coronary artery protection given low uvmvb-kn-hmgtevxo distance. There was no obstruction post Valve deployment, but the stent could not be removed safely, so it was deployed. 4.0 mm x 30mm in left main. She was loaded on brilinta aka ticagrelor. Immediately post valve deployment, chest compressions to circulate central epinephrine which was administered given her hypotension, low LVEF, and low cardiac reserve. Next, the patient was transferred to [facility] for pressor and inotropic support. Pressors weaned overnight. Cardiac indices by thermodilution remained greater than 3 with continued Milrinone 0.125 mcg/kg/min. EKG the next day with NSR with stable NV/QRS intervals. Hemoglobin 7.8 [...] arms and wrists. Successful right transfemoral TAVR Pfvcn-lb-[id number] with a 23 mm Lai 3 THV. [...] leads Confirmed by MD Harshil, Haris Bell ([id number]) on 05/10/2023 8:11:46 AM Cardiac Cath 11/09/2022 [...] in chart review and direct patient contact. [id number] 0-5min 0881GIP4 6-10min 1759AZB9 11-15min 2556WFG5 16-20min x 0537ZPT9 21-30min 6296TQV7 31-40min 5898DIW8 40+ min Jay Maza PA-C Interventional Cardiology [facility] Heart and Vascular [facility] Pager [phone] documented in this encounter Plan of Treatment Upcoming Encounters Date Type Department Care Team (Late st Contact Info) Description 05/12/2024 9:00 AM EDT Laboratory Appointment Lab at [facility] Hematology Oncology [address] [place] [address] 05/12/2024 10:00 AM EDT Office Visit Hematology [place] [address] Markel Borjas MD [facility] [address] [place] [address] 03/01/2025 4:15 PM EDT Office Visit Dermatology at [place] [address] [place] [address] Marek Bonilla MD [address] [place] [address] documented as of this encounter Visit Diagnoses Diagnosis HFrEF (heart failure with reduced ejection fraction) Hypertension, unspecified type Aortic valve stenosis, etiology of cardiac valve disease unspecified Chronic idiopathic neutropenia Other neutropenia documented in this encounter Care Teams Pear Picker Relationship Specialty Start Date End Date Magdalena Acosta MD [address] [place] [address] PCP - General Family Medicine 02/05/23 documented as of this encounter
--- OUTSIDE RECORDS SUMMARY | 2024-05-09 15:19 | XMS_ITS | Encounter Summary ---
Author Organization [facility] Address [address] [place] [address] Care Team Providers Care Typing Checker Name Role Phone Ashley Chavez Primary Care Provider Encounter Details Date Type Department Care Team (Late st Contact Info) Description 04/29/2022 Lab Requisition [facility] Pathology & Laboratory Medicine - [address] [address] Outr Resulting Lab, Provider Social History Tobacco [...] Antibody 1.6 <20.0 Units 04/30/2022 12:23 EDT [facility] [...] A ND SEROLOGY ORDERABLES Performing Organization Address [facility] de Phone Number [facility] [address] [place] [address] * SSA ANTIBODIES BY DOMO (04/29/2022 7:51 EDT) SSA Antibody 1.5 <20.0 Units 04/30/2022 12:22 EDT [facility] [...] SEROLOGY ORDERABLES Performing Organization Address [facility] de Phone Number [facility] [address] [place] [address] documented in this encounter Visit Diagnoses Not on filedocumented in this encounter Care Teams Typing Checker Relationship Specialty Start Date End Date Ashley Chavez ARNP [address] [place] [address] PCP - General 07/11/10 documented as of this encounter
--- OUTSIDE RECORDS SUMMARY | 2024-05-09 15:19 | XMS_ITS | Encounter Summary ---
Author Organization [facility] [place] [address] Care Team Providers Care Staff Reporter Name Role Phone Magdalena Acosta MD Primary Care Provider [phone] Encounter Details Date Type Department Care Team [...] [facility] Hematology Oncology [address] [place] [address] 05/12/2024 10:00 AM EDT Office Visit [place] [address] Markel Borjas MD [address] [address] [place] [address] 03/01/2025 4:15 PM EDT Office Visit Dermatology at [place] [address] [place] [address] Marek Bonilla MD [address], [place] [address] documented as of this encounter Visit Diagnoses Not on filedocumented in this encounter Care Teams Staff Reporter Relationship Specialty Start Date End Date Magdalena Acosta MD [address] [place] [address] PCP - General Family Medicine 02/05/23 documented as of this encounter
--- OUTSIDE RECORDS SUMMARY | 2024-05-09 15:19 | XMS_ITS | Encounter Summary ---
Author Organization [facility] Address [address] [place] [address] Care Team Providers Care Manufacturing Support Engineer Name Role Phone Unavailable Primary Care Provider Unavailabl e Encounter Details Date Type Department Care Team (Late st Contact Info) Description 06/29/2007 Results Only [facility] - Maple conversion [address] [place] [address] Sánchez Acevedo MD [address] [place] [address] Social History Tobacco Use Types Packs/Day Years [...] ? PURNIMA THACKER ? Accession #: ? [id number] ? : ? 1955 (Age: 51) ??F [...] covered by a smooth white serosa. ??Three senior customer service representative sections of the gallbladder are submitted in one cassette. ??(Sriram Elias/[facility] End of Report [facility] 06/29/2007 06/29/2007 21: 23 EST Sánchez Acevedo MD PATHOLOGY ORDERABLE [facility] [address] [place] [address] documented in this encounter Visit Diagnoses Not on filedocumented in this encounter
--- OUTSIDE RECORDS SUMMARY | 2024-05-09 15:19 | XMS_ITS | Encounter Summary ---
Author Organization [facility] [place] [address] Care Team Providers Care Senior Linux Systems Administrator Name Role Phone Magdalena Acosta MD Primary Care Provider [phone] Encounter Details Date Type Department Care Team [...] 9:00 AM EDT Laboratory Appointment Lab at [facility] Hematology Oncology [address] [place] [address] 05/12/2024 10:00 AM EDT Office Visit Hematology [place] [address] Markel Borjas MD [facility] [address] H[place] [address] 03/01/2025 4:15 PM EDT Office Visit Dermatology at [place] [address] [place] [phone] Marek Bonilla MD [address], [address] [place] [address] documented as of this encounter Visit Diagnoses Not on filedocumented in this encounter Care Teams Senior Linux Systems Administrator Relationship Specialty Start Date End Date Magdalena Acosta MD [address] [place] [address] PCP - General Family Medicine 02/05/23 documented as of this encounter
--- OUTSIDE RECORDS SUMMARY | 2024-05-09 15:19 | XMS_ITS | Encounter Summary ---
Author Organization [facility] [place] [address] Care Team Providers Care Assistant Grocery Store Manager Name Role Phone Magdalena Acosta MD Primary Care Provider [phone] Encounter Details Date Type Department Care Team [...] [facility] Hematology Oncology [address] [place] [address] 05/12/2024 10:00 AM EDT Office Visit [place]ematology [place] [address] Markel Borjas MD [facility] [address] HEMATOLOGY [place] [address] 03/01/2025 4:15 PM EDT Office Visit Dermatology at [place] [address] [place] [address] Marek Bonilla MD [address], [place] [address] documented as of this encounter Visit Diagnoses Not on filedocumented in this encounter Care Teams Assistant Grocery Store Manager Relationship Specialty Start Date End Date Magdalena Acosta MD [address] [place] [address] PCP - General Family Medicine 02/05/23 documented as of this encounter
--- OUTSIDE RECORDS SUMMARY | 2024-05-09 15:19 | XMS_ITS | Encounter Summary ---
Author Organization [facility] Address [address] [place] [address] Care Team Providers Care Can Cutter Name Role Phone ScottNicolei WILLIAM Primary Care Provider [phone] Encounter Details Date Type Department Care Team (Late st Contact Info) Description 03/21/2024 Lab Requisition [facility] Pathology & Laboratory Medicine - [address] [address] Consuelo Guerrero, DO [address] [place], [place] [address] Encounter for other general examination Social History [...] LORY Negative 03/21/2024 22:31 EDT [facility] BLOOD BANK Blood VENOUS BLOOD / Unknown 03/21/2024 13:00 EDT 03/21/2024 21:51 EDT Consuelo Guerrero DO BLOOD BANK TESTS [facility] BLOOD BANK [address] [place] [address] documented in this encounter Visit Diagnoses Diagnosis Encounter for other general examination documented in this encounter Care Teams Can Cutter Relationship Specialty Start Date End Date Ashley Chavez ARNP [address] [place] [address] PCP - General 07/11/10 documented as of this encounter
--- OUTSIDE RECORDS SUMMARY | 2024-05-09 15:19 | XMS_ITS | Encounter Summary ---
Author Organization [facility] [place] [address] Care Team Providers Care Restaurant Shift Supervisor Name Role Phone Magdalena Acosta MD Primary Care Provider [phone] Encounter Details Date Type Department Care Team [...] [facility] Hematology Oncology [address] [place] [address] 05/12/2024 10:00 AM EDT Office Visit Hematology [place] [address] Markel Borjas MD [facility] [address] [place] [address] 03/01/2025 4:15 PM EDT Office Visit Dermatology at [place] [address] [place] [address] Marek Bonilla MD [address], [address] [place] [address] documented as of this encounter Visit Diagnoses Not on filedocumented in this encounter Care Teams Restaurant Shift Supervisor Relationship Specialty Start Date End Date Magdalena Acosta MD [address] [place] [address] PCP - General Family Medicine 02/05/23 documented as of this encounter
--- OUTSIDE RECORDS SUMMARY | 2024-05-09 15:19 | XMS_ITS | Encounter Summary ---
Author Organization [facility] [place] [address] Care Team Providers Care Assignment Agent Name Role Phone Magdalena Acosta MD Primary Care Provider [phone] Reason for Visit * Reason Comments Aortic Stenosis Coronary Artery Disease Hypertension Encounter Details Date Type Department Care Team (Latest Contact Info) Description 11/16/2023 11:40 AM EDT TH Visit (TeleHealth) Cardiology at [address] [address] Jay Maza PA [facility] [place] [address] Aortic valve stenosis, etiology of cardiac valve disease unspecified; Coronary artery disease, unspecified vessel or lesion type, unspecified whether angina present, unspecified whether [place]'alene or transplanted heart Social History Tobacco Use [...] original note were not included. [facility] Interventional Cardiology CARDIOLOGY TELE VISIT NOTE 11/16/23 Patient: Purnima Thacker Prior to the initiation of our discussion, the risks and benefits of tele health visits were discussed, and the patient consented verbally to this being a virtual telehealth visit in lieu of an in person office visit. CARDIOLOGISTS: Antelmo Sharma MD ([facility]) Maria Luz Mejia MD ([facility] - [facility]) Problem List: [...] I35.0 Mild coronary artery disease by [facility] 11/09/2022 I25.10 Heart failure with [...] notable for coronary artery protection given low [id number] distance. There was no obstruction post Valve [...] leads Confirmed by MD Harshil, Haris Bell ([id number]) on 05/10/2023 8:11:46 AM Cardiac Cath 11/09/2022 [...] in one year. EKATERINA Thompson Time spent: [id number] 0-5min [id number] 6-10min [id number] 11-15min x [id number] 16-20min 1665UVV7 21-30min 7858MFJ5 31-40min [id number] 40+ min Jay Maza PA-C Interventional Cardiology [facility] Pager [phone] documented in this encounter Plan of Treatment Upcoming Encounters Date Type Department Care Team (Late st Contact Info) Description 05/12/2024 9:00 AM EDT Laboratory Appointment Lab at [facility] Hematology Oncology [address] [place] [address] 05/12/2024 10:00 AM EDT Office Visit [place]ematology [place] [address] Markel Borjas MD [facility] [address] HEMATOLOGY [place] [address] 03/01/2025 4:15 PM EDT Office Visit Dermatology at [place] [address] [place] [address] Marek Bonilla MD [address], [place] [address] documented as of this encounter Visit Diagnoses Diagnosis Aortic valve stenosis, etiology of cardiac valve disease unspecified Coronary artery disease, unspecified vessel or lesion type, unspecified whether angina present, unspecified whether [place] d'al[place] or transplanted heart Chronic idiopathic neutropenia Other neutropenia documented in this encounter Care Teams Assignment Agent Relationship Specialty Start Date End Date Magadlena Acosta MD [address] [place] [address] PCP - General Family Medicine 02/05/23 documented as of this encounter
--- OUTSIDE RECORDS SUMMARY | 2024-05-09 15:19 | XMS_ITS | Referral Summary ---
Author Organization [facility] Address [address] [place] [address] Care Team Providers Care Cane Flume Chute Operator Name Role Phone Ashley Chavez Primary Care Provider [phone] Encounters Date Type Department Care Team Description 03/22/2024 Lab Requisition [facility] Pathology & Laboratory [address] [address] Consuelo Guerrero, DO Diaphragmatic hernia without obstruction or gangrene; Anemia, unspecified 03/21/2024 Lab Requisition [facility] Pathology & Laboratory [address] [address] Consuelo Guerrero DO Encounter for other general examination 03/21/2024 Lab Requisition [facility] Pathology & Laboratory [address] [address] Outr Resulting Lab, Provider from Last 3 [...] 13:00 EDT) LORY Negative 03/21/2024 22:31 EDT [facility] Blood VENOUS BLOOD / Unknown 03/21/2024 13:00 EDT 03/21/2024 21:51 EDT Consuelo Guerrero DO BLOOD BANK TESTS Performing Organization Address [facility] Co de Phone Number [facility] [address] [place] [address] * HAPTOGLOBIN (03/21/2024 13:00 EDT) Haptoglobin 183 32 - 197 mg/dL 03/22/2024 10:25 EDT [facility] Blood VENOUS BLOOD / Unknown 03/21/2024 13:00 EDT 03/21/2024 21:50 EDT Provider Outr Resulting Lab CHEMISTRY & BLOOD GAS ORDERABLES Performing Organization Address [facility] Co de Phone Number [facility] [address] [place] [address] * SURGICAL PATHOLOGY (03/21/2024 11:35 EDT) Note to Patient The following pathology results have been interpreted by your pathologist and may be available to you before your health provider has had the opportunity to review them. Please allow time for your provider to receive these results and explore management options, if applicable. 03/24/2024 10:36 EDT [facility] Final Diagnosis A. JEJUNUM, [...] - Deeper sections x3 examined. 03/24/2024 10:36 [facility] Attestation There was significant resident/fellow involvement in the diagnostic evaluation of this case. By the signature below, the attending physician certifies that they have personally conducted a gross and/or microscopic examination of the described specimens and rendered or confirmed the above diagnosis. 03/24/2024 10:36 [facility] at 1036 Clinical History Anemia, hiatal hernia, 38 cm aguayo diverticulosis 03/24/2024 10:36 [facility] Gross Description A. Received [...] Torres 03/22/2024 9:36 03/24/2024 10:36 EDT [facility] Resident/Estuardo w: Luis Felipe Bragg DO 03/24/2024 10:36 EDT [facility] Performing Lab [facility] 10:36 EDT [facility] Scanned Images 03/24/2024 10:36 EDT [facility] Tissue POLYP OF COLON [...] EDT Consuelo Guerrero DO PATHOLOGY ORDERABLES [facility] [address] [place] [address] from Last 3 Months Care Teams Cane Flume Chute Operator Relationship Specialty Start Date End Date Ashley Chavez ARNP [address] [place] [address] PCP - General 07/11/10
--- OUTSIDE RECORDS SUMMARY | 2024-05-09 15:19 | XMS_ITS | Encounter Summary ---
Author Organization [facility] Address [address] [place] [address] Care Team Providers Care Operations Professional Name Role Phone Scott Ashley WILLIAM Primary Care Provider [phone] Encounter Details Date Type Department Care Team (Late st Contact Info) Description 05/12/2019 Results Only [facility] [phone] Nadira Gregorio MD [address] [place] [phone] Social History Tobacco Use Types Packs/Day [...] ? PURNIMA THACKER ? Accession #: ? [id number] ? : ? 1955 (Age: 63) ??F ? Collect Date: ? 05/12/2019 ? Location: ? [facility] ? Receive Date: ? 05/12/2019 ? Provider: NADIRA GREGORIO MD Copy to: W[employer] H[employer]INS APPLIANCE SERVICE SUPERVISOR ? Final Pathologic Diagnosis: COLON, CECUM, POLYP, [...] (ASCP) 05/12/2019 6:08 PM End of Report [facility] 05/12/2019 16:0 3 EDT 05/12/2019 16:03 EDT Nadira Gregorio MD PATHOLOGY ORDERABLES [facility] [address] [place] [address] documented in this encounter Visit Diagnoses Not on filedocumented in this encounter Care Teams Operations Professional Relationship Specialty Start Date End Date Ashley Chavez ARNP [address] [place] [address] PCP - General 07/11/10 documented as of this encounter
--- OUTSIDE RECORDS SUMMARY | 2024-05-09 15:19 | XMS_ITS | Encounter Summary ---
Author Organization [facility] Address [address] [place] [address] Care Team Providers Care Transformation Specialist Name Role Phone Ashley Chavez Primary Care Provider [phone] Encounter Details Date Type Department Care Team (Late st Contact Info) Description 06/23/2016 Results Only [facility] [phone] Matthew Acevedo, DO [address] [facility] [facility] [address] [place] [address] [place] [address] Social History Tobacco Use Types Packs/Day [...] ? PURNIMA THACKER ? Accession #: ? [id number] : ? 1955 (Age: 60) ??F ?Collect [...] KARYOTYPE: 46,XX[25] End of Report [facility] 06/23/2016 06/24/2016 Matthew Acevedo DO PATHOLOGY ORDER JODIE [facility] [address] [place] [address] * FLOW CYTOMETRY (06/23/2016 0:00 EST) Pathology Report: FLOW CYTOMETRY REPORT Reports generated via electronic interface contain original data; however they are lacking the format of the original report. Caution should be taken when reading/interpreting unformatted reports. Name: ? PURNIMA THACKER ? Accession #: ? [id number] : ? 1955 (Age: 60) ??F ?Collect Date: ? 06/23/2016 00:00 Location: ? [facility] ? Receive Date: ? 06/24/2016 08:00 Provider: ?MATTHEW ACEVEDO DO Copy to: ?WINTER HANKINS MARKETER MARIO ALBERTO RAMOS MD ? FINAL IMMUNOPHENOTYPIC INTERPRETATION: ? Bone marrow, flow cytometric analysis: -No immunophenotypic evidence of a clonal cell population. ??See comment. ? COMMENT: The results of flow cytometry show no immunophenotypic evidence of involvement by a clonal lymphoproliferative or myeloproliferative disorder. ??Correlation of these findings with morphologic and clinical data is essential. ??Please refer to pathology report number [id number] for morphologic details. ? Document reviewed and [...] the Department of Pathology and Laboratory Medicine, [place] ??It has not been cleared or [...] testing. End of Report ?? [facility] 06/23/2016 06/24/2016 8:0 0 EST Matthew Acevedo DO PATHOLOGY ORDER JODIE [facility] [address] [place] [address] * BONE MARROW/HEMPATH CONSULT (06/23/2016 0:00 EST) Pathology Report: BONE MARROW REPORT Reports generated via electronic interface contain original data; however they are lacking the format of the original report. Caution should be taken when reading/interpreting unformatted reports. Name: ? PURNIMA THACKER ? Accession #: ? [id number] : ? 1955 (Age: 60) ??F ?Collect Date: ? 06/23/2016 Location: ? [facility] ? Receive Date: ? 06/24/2016 Provider: ? MATTHEW ACEVEDO DO Copy to: ?WINTER HANKINS MARKETER MARIO ALBERTO RAMOS MD ? DIAGNOSIS: Peripheral [...] #1: Aggregate biopsy length: 8 mm with funeral home location manager trabeculae of lamellar bone, cellular bone marrow, [...] SEE ABOVE DISCUSSION Lambda (polyclonal, Dako) ??(B1): [place] (polyclonal, Dako) ??(B1): Biopsy (decalcified) #2: Aggregate biopsy length: 8 mm with funeral home location manager trabeculae of lamellar bone, cellular bone marrow, [...] (M115, Leica) ??(B2): Lambda (polyclonal, Dako) ??(B2): [place] (polyclonal, Dako) ??(B2): NOTE: ??One or more [...] ? 1% Blasts ?1% Special Studies Cytogenetics ([id number]): Pending. Flow Cytometry ([id number]): No immunophenotypic evidence of a clonal cell population. ? End of Report [facility] 06/23/2016 06/24/2016 Matthew Acevedo DO PATHOLOGY ORDER JODIE [facility] [address] [place] [address] documented in this encounter Visit Diagnoses Not on filedocumented in this encounter Care Teams Transformation Specialist Relationship Specialty Start Date End Date Ashley Chvaez ARNP [address] [place] [address] PCP - General 07/11/10 documented as of this encounter
--- OUTSIDE RECORDS SUMMARY | 2024-05-09 15:20 | XMS_ITS | Encounter Summary ---
Author Organization [facility] [place] [address] Care Team Providers Care Tree Trimmer Helper Name Role Phone Magdalena Acosta MD Primary Care Provider [phone] Encounter Details Date Type Department Care Team (Late st Contact Info) Description 05/27/2023 Refill Cardiology at [address] [phone] Vero Marrero, RN Social History Tobacco Use [...] PM EDT TC to Nurse Sosa at [facility] to relay response from Jay Maza copied below. Nurse Sosa states they will send a new prescription to patient's preferred pharmacy and call the patient with the medication information. No print prescription sent to update med list. May 27, 2023 Jay Maza PA to [place] 05/27/23 2:44 PM OK to change ticagrelor to Clopidogrel. Now, she should be taking ticagrelor 90mg BID. When she switches, she can take ticagrelor, then the next morning, stop ticagrelor, instead take clopidogrel 300mg once, then after that 75mg once daily. Jay Marrero rn advanced Clinic at [facility] [phone] * Telephone Encounter - Vero Marrero RN - 05/27/2023 1:46 PM EDT VM received from triage nurse Sosa at [facility] stating patient was seen today by [...] more affordable option, if possible. Vero Marrero rn advanced Clinic at [facility] [address] documented in this encounter Plan of Treatment Upcoming Encounters Date Type Department Care Team (Late st Contact Info) Description 05/12/2024 9:00 AM EDT Laboratory Appointment Lab at [facility] Hematology Oncology [address] [place] [phone] 05/12/2024 10:00 AM EDT Office Visit Hematology [place] [address] Markel Borjas MD [facility] [address] [place] [address] 03/01/2025 4:15 PM EDT Office Visit Dermatology at [address] [address] Marek Bonilla MD [address] [place] [address] documented as of this encounter Visit Diagnoses Diagnosis Aortic valve stenosis, etiology of cardiac valve disease unspecified Chronic idiopathic neutropenia Other neutropenia documented in this encounter Care Teams Tree Trimmer Helper Relationship Specialty Start Date End Date Magdalena Acosta MD [address] [place] [address] PCP - General Family Medicine 02/05/23 documented as of this encounter
--- OUTSIDE RECORDS SUMMARY | 2024-05-09 15:20 | XMS_ITS | Encounter Summary ---
Author Organization [facility] [place] [address] Care Team Providers Care Monitoring And Evaluation Advisor Name Role Phone Magdalena Acosta MD Primary Care Provider [phone] Encounter Details Date Type Department Care Team (Late st Contact Info) Description 07/08/2023 10:15 AM EST Office Visit Cardiology at [address] [phone] Severe aortic stenosis Social History Tobacco Use [...] [facility] Hematology Oncology [address] [place] [address] 05/12/2024 10:00 AM EDT Office Visit Hematology [place] [address] Markel Borjas MD [facility] [address] HEMATOLOGY [place] [address] 03/01/2025 4:15 PM EDT Office Visit Dermatology at [place] [address] [place] [address] Marek Bonilla MD [address], [place] [address] documented as of this encounter Procedures Procedure [...] (Bezet) 449 ms MUSE SYSTEM Calculated P [place] 66 degrees MUSE SYSTEM Calculated R [place] 60 degrees MUSE SYSTEM Calculated T [place] 53 degrees MUSE SYSTEM INTERPRETATION Normal sinus rhythm Minimal voltage criteria for LVH, may be normal variant ( Sokolow-Orozco ) ST & T wave abnormality, consider lateral ischemia ??vs. repolarization abnormality from LVH Abnormal ECG When compared with ECG of 13-MAY-2023 09:22, Premature ventricular complexes are no longer Present Minimal criteria for Septal infarct are no longer Present Confirmed by Maxx Best ([id number]) on 07/09/2023 10:07:22 AM MUSE SYSTEM 07/08/2023 10:2 7 AM EST 07/09/2023 10:07 AM EST Brody Suyapa Eusebio OSBORN ECG ORDERABLES Ship It Bag Check SYSTEM documented in this encounter Visit Diagnoses Diagnosis Severe aortic stenosis Aortic valve disorders Chronic idiopathic neutropenia Other neutropenia documented in this encounter Care Teams Monitoring And Evaluation Advisor Relationship Specialty Start Date End Date Magdalena Acosta MD [address] [place] [address] PCP - General Family Medicine 02/05/23 documented as of this encounter
--- OUTSIDE RECORDS SUMMARY | 2024-05-09 15:20 | XMS_ITS | Encounter Summary ---
Author Organization [facility] [place] [address] Care Team Providers Care Mangle Roller Name Role Phone Magdalena Acosta MD Primary Care Provider [phone] Encounter Details Date Type Department Care Team [...] [facility] [address] [place] [address] 05/12/2024 10:00 AM EDT Office Visit Hematology [place] [address] Markel Borjas MD [facility] [address] [place] [address] 03/01/2025 4:15 PM EDT Office Visit Dermatology at [place] [address] [place] [phone] Marek Bonilla MD [address], [address] [place] [address] documented as of this encounter Visit Diagnoses Not on filedocumented in this encounter Care Teams Mangle Roller Relationship Specialty Start Date End Date Magdalena Acosta MD [address] [place] [address] PCP - General Family Medicine 02/05/23 documented as of this encounter
--- OUTSIDE RECORDS SUMMARY | 2024-05-09 15:20 | XMS_ITS | Encounter Summary ---
Author Organization [facility] [place] [address] Care Team Providers Care Wallcovering Texturer Name Role Phone Magdalena Acosta MD Primary Care Provider [phone] Encounter Details Date Type Department Care Team [...] [facility] Hemat[facility] Oncology [address] [place] [address] 05/12/2024 10:00 AM EDT Office Visit Hematology [place] [address] Markel Borjas MD [facility] [address] [place] [address] 03/01/2025 4:15 PM EDT Office Visit Dermatology at [place] [address] [place] [phone] Marek Bonilla MD [address], [place] [address] documented as of this encounter Visit Diagnoses Not on filedocumented in this encounter Care Teams Wallcovering Texturer Relationship Specialty Start Date End Date Magdalena Acosta MD [address] [place] [address] PCP - General Family Medicine 02/05/23 documented as of this encounter
--- OUTSIDE RECORDS SUMMARY | 2024-05-09 15:20 | XMS_ITS | Encounter Summary ---
Author Organization [facility] [place] [address] Care Team Providers Care Cargo Inspector Name Role Phone Magdalena Acosta MD Primary Care Provider Reason for Referral * Diagnostic Test (Routine) - Closed Specialty Diagnoses / Procedures Referred By Contac t Referred To Contact Cardiology Diagnoses S/P TAVR (transcatheter aortic valve replacement) Procedures Echocardiogram Transthoracic Vinod Juárez PA [facility] [place] [address] [facility] [place] [address] Referral ID Status Reason Start Date Expiration Date V isits Requested Visits Authorized [id number] Closed Specialty Service Requested 05/22/2023 05/21/2024 1 1 Reason for Visit * Diagnostic Test (Routine) - Closed Specialty Diagnoses / Procedures Referred By Contac t Referred To Contact Cardiology Diagnoses S/P TAVR (transcatheter aortic valve replacement) Procedures Echocardiogram Transthoracic Vinod Juárez PA [facility] [place] [address] [facility] [place] [address] Referral ID Status Reason Start Date Expiration Date V isits Requested Visits Authorized [id number] Closed Specialty Service Requested 05/22/2023 05/21/2024 1 1 Encounter Details Date Type Department Care Team (Latest Contact Info) Description 07/08/2023 10:19 AM EST - 07/08/2023 11:59 PM EST Hospital Encounter Non-Invasive [place] [address] Alirio Esparza MD S/P TAVR (transcatheter aortic [...] topically 2 times daily as needed. 10/22/2022 clopidogreL (Plavix) 75 mg tabletIndications:Aor tic valve [...] [facility] [place] [address] [place] [address] 05/12/2024 10:00 AM EDT Office Visit Hematology [place] [address] Markel Borjas MD [facility] [address] [place] [address] 03/01/2025 4:15 PM EDT Office Visit Dermatology at [place] [address] [facility] [place] [address] Marek Bonilla MD [address] [facility] [place] [address] documented as of this encounter Procedures Procedure [...] EST Narrative 07/08/2023 12:26 PM EST 1 [place] [address] ? Echocardiogram Report Name: ONESIMO THACKER ?Study Date: 07/08/2023 10:31 AMBP: 118/60 mmHg ? Patient Location: : 1955 ? Height: 155 cm ? Account: [id number] Age: 67 yrs ? Weight: 74 kg Gender: Female ?BSA: 1.7 m2 Ordering Physician: ALIRIO ESPARZA Referring Physician: VINOD JUÁREZ Performed By: Felicia Norris RDCS Reason For Study: S/P TAVR Exam Location: [facility]. Interpretation Summary Left ventricular systolic function [...] no significant change (post-procedure). Procedure Limited - 86385. Doppler - 25623. Color Doppler - 19464. Satisfactory quality. This study is limited because [...] Note Lee Kincaid MD - 07/08/2023 1 [place] [address] Echocardiogram Report Name: ANDREWONESIMO Study Date: 310:31 AMBP: 118/60 mmHg Patient Location: : 1955 Height: 155 cm Account: [id number] Age: 67 yrs Weight: 74 kg Gender: Female BSA: 1.7 m2 Ordering Physician: ALIRIO ESPARZA Referring Physician: VINOD JUÁREZ Performed By: Felicia Norris RDCS Reason For Study: S/P TAVR Exam Location: [facility]. Interpretation Summary Left ventricular systolic function [...] is nosignificant change (post-procedure). Procedure Limited - 52056. Doppler - 33978. Color Doppler - 41556. Satisfactoryquality. This study is limited because of [...] neutropenia documented in this encounter Care Teams Cargo Inspector Relationship Specialty Start Date End Date Magdalena Acosta MD [address] [place] [address] PCP - General Family Medicine 02/05/23 documented as of this encounter
--- OUTSIDE RECORDS SUMMARY | 2024-05-09 15:20 | XMS_ITS | Encounter Summary ---
[place] [address] Care Team Providers Care Quarry Supervisor Name Role Phone Magdalena Acosta MD Primary Care Provider [phone] Encounter Details Date Type Department Care Team (Latest Contact Info) Description 07/08/2023 12:35 PM EST Laboratory Appointment Lab [address] [place] [address] S/P TAVR (transcatheter aortic valve replacement); Severe aortic stenosis Social History Tobacco Use Types Packs/Day Years Used Date Smoking Tobacco: Never Smokeless Tobacco: Never Alcohol Use Standard Drinks/Week Comments No 0 (1 standard drink = 0.6 oz pur e alcohol) none [facility] Inpatient Questions Answer Date Recorded [...] 9:00 AM EDT Laboratory Appointment Lab at [facility] Hematology Oncology [address] [place] [address] 05/12/2024 10:00 AM EDT Office Visit Hematology [place] [phone] Markel Borjas MD [facility] [address] HEMATOLOGY [place] [address] 03/01/2025 4:15 PM EDT Office Visit Dermatology at [place] [address] [place] [phone] Marek Bonilla MD [address] [place] [address] documented as of this encounter Procedures Procedure [...] 11:56 AM EST) Neutrophil % 73.2 % [facility] Neutrophil Absolute 3.40 1.70 - 6.10 x10(3)/mc L [facility] Lymph % 16.1 % [facility] Lymphocytes Abs 0.8(L) 0.9 - 3.2 x10(3)/mc L [facility] Monocyte % 9.7 % [facility] Monocyte Abs 0.4 0.3 - 0.9 x10(3)/mc L [facility] Eos % 0.4 % [facility] Eosinophils Abs 0.0 0.0 - 0.4 x10(3)/mc L [facility] Basophil % 0.4 % [facility] IT[facility] Baso Absolute 0.0 0.0 - 0.1 x10(3)/ L [facility] Immature Gran % 0.20 % [facility] Comment: Immature granulocytes(IG's)percentage and absolute count will include metamyelocytes, myelocytes, and promyelocytes. Blood smears from CBCs yielding IG's will be scanned manually for concordance. If this scan disagrees with the automated IG or if promyelocytes are noted, a manual differential will be performed. Immature Gran Absolute 0.01 0.00 - 0.04 x10(3)/ L [facility] Blood 07/08/2023 11:5 6 AM EST 07/08/2023 12:02 PM EST Narrative Resulting Agency Comment Spec In Lab Min[facility] HEMATOLOGY ORDERABLE S [facility] [place] [address] * (ABNORMAL) Hemogram (07/08/2023 11:56 AM EST) White Blood Cell 4.6 4.0 - 9.5 x10(3)/[facility] LABORAT[facility] Red Blood Cell 3.34(L) 4.00 - 5.21 x10(6)/[facility] LABORATORY Hemoglobin 11.0(L) 11.7 - 15.5 g/dL [facility] Hematocrit 33.2(L) 35.7 - 45.8 % [facility] Mean Cell Volume 99.4(H) 82.6 - 94.[address] fL [facility] Mean Cell Hemoglobin 32.9(H) 27.1 - 32.[address] [facility] Mean Cell Hemoglobin Concentration 33.1 31.7 - 35.0 g/dL [facility] Platelet 166 145 - 357 x10(3)/[facility] LABORATORY RDW Standard Deviation 47.1(H) 37.0 - 46.[address] fL [facility] RDW coefficient of variation 13.0 11.5 - 14.1 % [facility] Mean Platelet Volume 9.0 7.6 - 12.9 fL [facility] NRBC% auto 0.0 % [facility] ITAL [facility] NRBC Absolute 0.000 0.000 - 0.000 x10(3)/ L [facility] Blood 07/08/2023 11:5 6 AM EST 07/08/2023 12:02 PM EST Narrative Resulting Agency Comment Spec In Lab Minh [facility] HEMATOLOGY ORDERABLE S [facility] [place] [address] * (ABNORMAL) Comprehensive metabolic panel (non-fasting) (07/08/2023 11:56 AM EST) Glucose 93 65 - 199 mg/dL [facility] Comment:Diabetes: >=200 mg/d L plus symptoms Blood Urea Nitrogen 19(H) 8 - 18 mg/dL [facility] Creatinine 0.81 0.70 - 1.20 mg/dL [facility] Sodium 142 135 - 145 mmol/L [facility] Potassium 3.8 3.5 - 5.0 mmol/L [facility] Comment: Please note: ??Patients with WBC >100,000 may have falsely elevated Potassium levels. ??For accurate Potassium quantification in these patients send serum separator tube (gold top) for subsequent determinations. ??Contact the Clinical Chemistry Laboratory if there are any questions. Chloride 104 98 - 107 mmol/L [facility] Carbon Dioxide 26 22 - 31 mmol/L [facility] Anion Gap 12 5 - 15 mmol/L [facility] Calcium 10.2 8.5 - 10.5 mg/dL [facility] Protein, Total 7.4 6.1 - 8.0 g/dL [facility] Albumin 4.1 3.2 - 5.2 g/dL [facility] Aspartate Aminotransferase 24 0 - 30 unit/L [facility] Alanine Aminotransferase 12 0 - 30 unit/L [facility] Alkaline Phosphatase 93 35 - 105 unit/L [facility] Bilirubin, Total 0.3 0.2 - 1.3 mg/dL [facility] Est Glomerular Filtration Rate 80 >=60 mL/min/1. 73 m?? [facility] Comment: This patient's estimated [...] Lab Alirio Esparza MD [place] [address] documented in this encounter Visit Diagnoses Diagnosis S/P TAVR (transcatheter aortic valve replacement) Severe aortic stenosis Aortic valve disorders Chronic idiopathic neutropenia Other neutropenia documented in this encounter Care Teams Quarry Supervisor Relationship Specialty Start Date End Date Magdalena Acosta MD [address] [place] [address] PCP - General Family Medicine 02/05/23 documented as of this encounter
--- OUTSIDE RECORDS SUMMARY | 2024-05-09 15:21 | XMS_ITS | Encounter Summary ---
Author Organization [facility] [place] [address] Care Team Providers Care Audio Visual Aids Director Name Role Phone Magdalena Acosta MD Primary Care Provider [phone] Encounter Details Date Type Department Care Team [...] [facility] [place] [place] Hematology Oncology [address] [place] [address] 05/12/2024 10:00 AM EDT Office Visit [place] [address] Markel Borjas MD [facility] [address] [place] [address] 03/01/2025 4:15 PM EDT Office Visit Dermatology at [place] [address] [place] [phone] Marek Bonilla MD [address] [place] [address] documented as of this encounter Visit Diagnoses Not on filedocumented in this encounter Care Teams Audio Visual Aids Director Relationship Specialty Start Date End Date Magdalena Acosta MD [address] [place] [address] PCP - General Family Medicine 02/05/23 documented as of this encounter
--- OUTSIDE RECORDS SUMMARY | 2024-05-09 15:21 | XMS_ITS | Encounter Summary ---
Author Organization [facility] [place] [address] Care Team Providers Care Die Storage Clerk Name Role Phone Magdalena Acosta MD Primary Care Provider [phone] Reason for Referral * Diagnostic Test (Routine) - Closed Specialty Diagnoses / Procedures Referred By Contac t Referred To Contact Cardiology Diagnoses S/P TAVR (transcatheter aortic valve replacement) Procedures Echocardiogram Transthoracic Vinod Juárez PA [facility] [place] [address] [facility] [place] [place] [address] Referral ID Status Reason Start Date Expiration Date V isits Requested Visits Authorized [id number] Closed Specialty Service Requested 05/22/2023 05/21/2024 1 1 * Home Health Care (Routine) - Closed Specialty Diagnoses / Procedures Referred By Contac t Referred To Contact Diagnoses S/P TAVR (transcatheter aortic valve replacement) Alirio Hudson MD [facility] CARDIOTHORACIC SURGERY [address] [facility] & [address] [place] [address] Referral ID Status Reason Start Date Expiration Date V isits Requested Visits Authorized [id number] Closed Consult, Test & Treat 05/22/2023 11/18/2023 999 999 * Consultation (Routine) - Closed Specialty Diagnoses / Procedures Referred By Crispin maxwell Referred To Contact Cardiology Diagnoses S/P TAVR (transcatheter aortic valve replacement) Alirio Hudson MD [facility] [place] [address] Cardiac Rehab, [address] [place] [address] Referral ID Status Reason Start Date Expiration Date V isits Requested Visits Authorized [id number] Closed Consult, Test & Treat 05/22/2023 11/18/2023 36 36 * Diagnostic Test (Routine) - Closed Specialty Diagnoses / Procedures Referred By Crispin maxwell Referred To Contact Cardiology Diagnoses Aortic valve stenosis, etiology of cardiac valve disease unspecified Procedures Echocardiogram Transthoracic Transesophageal Echocardiogram (YUSRA) Radha Hollins MD [facility] [place] [address] [facility] [place] [address] Referral ID Status Reason Start Date Expiration Date V isits Requested Visits Authorized [id number] Closed Specialty Service Requested 05/11/2023 05/10/2024 1 1 Reason for Visit * Auth/Cert (Routine) Specialty Diagnoses / Procedures Referred By Crispin maxwell Referred To Contact Diagnoses Symptomatic severe aortic stenosis with low ejection fraction NSTEMI, CHF Enrique Chua MD [facility] [place] [address] [facility] Referral ID Status Reason Start Date Expiration Date Visits Re quested Visits Authorized [id number] 1 1 Encounter Details Date Type Department Care Team (Latest Contact Info) Description 05/08/2023 9:14 AM EDT - 05/22/2023 10:46 AM EDT Hospital Encounter Heart and Vascular Unit Level 4 [place] [address] Enrique Chua MD [facility] [place] [address] Juan Luis Gonzalez MD [facility] [place] [address] Radha Hollins MD [facility] [place] [address] Alirio Hudson MD S/P TAVR (transcatheter aortic valve replacement) (Primary Dx); Aortic valve stenosis, etiology of cardiac valve disease unspecified; Symptomatic severe aortic stenosis with low ejection fraction; Heart failure with reduced ejection fraction due to heart valve disease; Mild coronary artery disease by [facility] 11/09/2022; Mixed connective tissue disease; Neck [...] Patient Age: 67 y.o. Birthdate: 1955 Language: Yoruba Race: White Ethnicity: Not nor Admit Date: 05/08/2023 Discharge Date: 05/22/2023 Attending Physician: Alirio Hudson MD Follow-up Recommendations for Providers: Please continue routine management of cardiovascular risk factors including blood pressure, lipids,glucose, etc. Please note any medication changes. Patient to follow up with PCP, Magdalena Acosta MD, or Primary Aircraft Parts Assembler, Aivs Mejia MD, in ~ 7-10 days. Patient to follow up with Lap Polisher, Dr. Antelmo Sharma, in 2 weeks with an EKG, Echo, CBC, and CMP. Patient to follow up with Nephrology, their office to arrange. Emvk-Nizxyw-lt interval: After initial 30 day follow-up appointment , all TAVR patients will follow-up again in one year with an echo. 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 Secondary Diagnoses: Active Hospital Problems Diagnosis S/P TAVR (transcatheter aortic valve replacement) Cardiogenic shock Symptomatic severe aortic stenosis with low ejection fraction Mild coronary artery disease by [facility] 11/09/2022 Heart failure with reduced ejection [...] Tube Placement Right 05/18/2023 Laure Ricks PA [facility] INTERVENTIONL RAD PRG CATH PLMT LEFT HEART CATH & ARTS W/INJ & ANGIO IMG S&I N/A 11/09/2022 CORONARY ANGIOGRAPHY; W [facility],POSSIBLE PCI (WRVU 5.6) performed by Mario Alberto Escobedo MD at [facility] CATH LABS PRG COMBINED RIGHT & LEFT HEART CATH W/INJ L VENTRICULOGRAPHY, IMG S&I N/A 05/12/2023 COMBINED RIGHT & LEFT HEART CATH,INC INJ FOR L VENTRICULOGRAPHY (WRVU 5.99) performed by Antelmo Sharma MD at [facility] CATH LABS PRO AORTOPLAS FOR SUPRAVALV STEN N/A 09/21/2016 @AORTOPLASTY FOR SUPRAVALVULAR STENOSIS (WRVU 29.33) performed by Alirio Hudson MD at [facility] MAIN OR PRO REPLACE AORTIC VALVE (TAVR/FEDERICO)PERC FEMORAL ARTERY APPROACH 05/12/2023 @TRANSCATHETER AORTIC VALVE REPLACEMENT (TAVR), PERCUTANEOUS FEMORAL (WRVU 22.47) performed by Alriio Hudson MD at [facility] CATH LABS PRO REPLACEMENT PROSTHETIC AORTIC VALVE OPEN W CARDIOPULMONARY BYPASS HOMOGRF/STENT N/A 09/21/2016 @REPLACE AORTIC VALVE, OPEN, W\CPB, W\PROSTHETIC VALVE (WRVU 41.32) performed by Alirio Hudson MD at [facility] MAIN OR Prior To Admission [...] Major Procedures/Operations: 05/12/23: Successful right transfemoral TAVR Dmwar-ln-Cnyul with a 23 mm Lai 3 THV. Left coronary protection with left main MINNA. Hospital Course: #Severe prosthetic s/p valve in valve TF TAVR #Low coronary heights s/p left main stent for coronary protection #Type 2 NSTEMI, present on arrival, resolved #Acute decompensated HFrEF #Cardiogenic shock #EVANS / Cardiorenal syndrome Purnima Thacker was admitted to [facility] on 05/08/2023 via the Cardiology [...] TAVR and she was brought to the process laboratory specialist the following morning where Drs. Alirio Hudson [...] if you have questions. Please call your Lap Polisher's office if you have any discharge or drainage from your procedural sites. Your Lap Polisher, Dr. Antelmo Sharma and/or the Sighter may be reached at . Antibiotic prophylaxis: You will need to take antibiotics prior to many invasive tests and treatments, such as dental cleaning, which should be done every 6 months. Your primary care physician or your dentist can prescribe this medication. Please refer to the card with the [place] [employer] Guidelines for more information. You have been provided with a copy of this card. Please refer to the [place] [employer] Guidelines for more information. Good [...] friends, go to a movie, go to tenriism, etc. Heavy activities: No hunting, skiing, jogging, [...] should resume a low fat, low cholesterol, [place] [employer] Diet Driving: No restrictions. Shower/Bath: You may shower daily. No baths, soaking, or swimming for the first week. Wound care: Wash the sites daily with soap and rinse well, pat dry. Assess for any signs of infection such as increased redness, pain, warmth or drainage. Please call your manager of recruiting's office if you have any discharge or drainage from your procedural sites. If there is a lot of swelling, apply mamta wraps during the day and remove at bedtime. Elevate your legs when you are sitting. Home oxygen therapy: N/A Follow up appointments: Please schedule a follow-up appointment with your PCP, Magdalena Acosta MD, or Primary Aircraft Parts Assembler in ~ 7-10 days. You have a follow-up appointment with your Lap Polisher, Dr. Antelmo Sharma, in 2 weeks with an EKG, Echo, and labs prior to your appointment. You will need follow-up with Nephrology, their office will arrange. Kdeu-Pmaxkr-xk interval: After initial 30 day follow-up appointment , all TAVR patients will follow-up again in one year with an echo. Cardiac Rehabilitation: Purnima Thacker was seen today regarding participation in the outpatient Phase 2 Cardiac Rehabilitation at [facility]. The patient agrees to a referral to this program. The referral will be sent at discharge and the patient should be contacted by the Program within 1- 2 weeks from discharge. Future Appointments and Orders Future Appointments and Orders Future Appointments Provider Department Dept Phone 07/29/2023 11:00 AM Magdalena Peralta MD Rheumatology at [facility] Arrive at: Eligibility Manager Area 5C [phone] 02/11/2024 2:00 PM Marek Bonilla MD Dermatology at [place] Arrive at: [facility] [address] [phone] Future Orders Complete By Expires Type and Screen Future Surgery, [facility] SAME DAY PROGRAM ONLY) [SCF4908 Custom] 05/11/2023 Process Instructions: This test is intended ONLY for patients with upcoming surgery for testing prior to the day of surgery obtained through the same day program (4V or SDP). For ALL OTHER PATIENTS, order a Type and Screen (PBM018) This order includes the physician order for an ABO Recheck if requested by the Blood Bank. Scheduling Instructions: Comments: Questions: Date of surgery: CBC (with Diff) [BMA349 Custom] 06/05/2023 12/05/2023 Process Instructions: INCLUDES: WBC, RBC, Hgb, Hct, Platelets, RBC Indices and Differential Scheduling Instructions: Comments: Questions: Comprehensive metabolic panel (non-fasting) [LAB17 Custom] 06/05/2023 08/20/2023 Process Instructions: INCLUDES: Calcium, T Protein, Albumin, AST, ALT, Alk Phos, T Bili, BUN, Creat, GFR, Glucose, Lytes. Scheduling Instructions: Comments: Questions: Echocardiogram Transthoracic [88118 CPT(R)] 06/05/2023 12/05/2023 Process Instructions: Scheduling Instructions: Questions: Where will study be performed?: [facility] Clinics Does the patient have Congenital Heart Disease?: Does patient require sedation?: GA rationale: EKG 12 Lead [70143 CPT(R)] 06/05/2023 12/05/2023 Process Instructions: Scheduling Instructions: Questions: Which location will this be performed?: [place] Is a rhythm strip needed?: No [facility] Devices [EQ161 Custom] As directed Process Instructions: Scheduling Instructions: Questions: Device Needed: WALKER (E0143) Patient Height (cm): 154.9 cm (5' 0.98) Patient Weight: 75.4 kg (166 lb 3.2 oz) Diagnosis: Unsteady gait when walking Referral to Cardiac Rehab [YDF027 Custom] As directed Process Instructions: If no progress note charted, please enter Clinical details in comments. Scheduling Instructions: Questions: My question or request is: s/p TAVR. Cardiac rehab at [facility]. Referral to Home Health [REF34 Custom] As directed Process Instructions: If no progress note charted, please enter Clinical details in comments. Scheduling Instructions: Comments: DOCUMENTATION FOR VNA SERVICES PATIENT'S LOCATION: Purnima Thacker [address] [place] [phone] (home) Aircraft Seat Upholsterer's Name: Self and brother Raymond In discussion with the attending physician, it is certified that this patient is under his/her careand that MD, or an WATER SYSTEMS ENGINEER, REPATCHER, or PA who is working directly with him/her, had a nflj-qs-kjgs encounter that meets the physician hjzk-iv-wucy encounter requirements with this patient on 05/22/2023. [...] for managing ADLs. HOME HEALTH CARE AGENCY: [facility]. [address] [place] [address] PHONE: [phone] FAX: [phone] Start of care: Ideally 24-48 hours after [...] Magdalena Acosta MD [address] / [facility] [address] All VNA agencies which cover the area of patient's residence have been reviewed, either verbally joao writing, and patient has chosen the home health care agency noted. Questions: Disciplines Requested: Physical Therapy Occupational Therapy Discharge References/Attachments None Arrangements for VNA/home care: As above. (delete if no VNA) Signed: EKATERINA NAVARRETE [facility] Section of Cardiac Surgery Date: 05/22/2023 CC: Magdalena Acosta MD RentzMario Alberto MD [address] [place] [address] documented in this encounter Discharge Instructions * Patient Instructions* Vinod Juárez PA - 05/22/2023 9:32 AM EDT TAVR Discharge Instructions: Call your doctor if: You have a fever of greater than 101 degrees, shaking chills, if you develop redness or drainage from your procedure sites, or if you have questions. Please call your Lap Polisher's office if you have any discharge or drainage from your procedural sites. Your Lap Polisher, Dr. Antelmo Sharma and/or the Sighter may be reached at . Antibiotic prophylaxis: You will need to take antibiotics prior to many invasive tests and treatments, such as dental cleaning, which should be done every 6 months. Your primary care physician or your dentist can prescribe this medication. Please refer to the card with the [place] [employer] Guidelines for more information. You have been provided with a copy of this card. Please refer to the [place] [employer] Guidelines for more information. Good [...] friends, go to a movie, go to tenriism, etc. Heavy activities: No hunting, skiing, jogging, [...] should resume a low fat, low cholesterol, [place] [employer] Diet Driving: No restrictions. Shower/Bath: You may shower daily. No baths, soaking, or swimming for the first week. Wound care: Wash the sites daily with soap and rinse well, pat dry. Assess for any signs of infection such as increased redness, pain, warmth or drainage. Please call your manager of recruiting's office if you have any discharge or drainage from your procedural sites. If there is a lot of swelling, apply mamta wraps during the day and remove at bedtime. Elevate your legs when you are sitting. Home oxygen therapy: N/A Follow up appointments: Please schedule a follow-up appointment with your PCP, Magdalena Acosta MD, or Primary Aircraft Parts Assembler in ~ 7-10 days. You have a follow-up appointment with your Lap Polisher, Dr. Antelmo Sharma, in 2 weeks with an EKG, Echo, and labs prior to your appointment. You will need follow-up with Nephrology, their office will arrange. Omgm-Ffztnu-ku interval: After initial 30 day follow-up appointment , all TAVR patients will follow-up again in one year with an echo. Cardiac Rehabilitation: Purnima Thacker was seen today regarding participation in the outpatient Phase 2 Cardiac Rehabilitation at [facility]. The patient agrees to a [...] topically 2 times daily as needed. 10/22/2022 furosemide (Lasix) 20 mg tablet Take 1 [...] ins ( tef) Haven Ba, PT Pager: [phone] Physical Therapy Inpatient Rehabilitation Department * Nico [...] 0600 and on the weekends please page [phone]. * Jory Paniagua - 05/20/2023 3:52 PM [...] vomiting Last Bowel Movement: 05/20/23 Jory Paniagua Production Honing Machine Operator * Rashid Tong, OT - [...] Tube Placement Right 05/18/2023 Laure Ricks PA [facility] INTERVENTIONL RAD PRG CATH PLMT LEFT HEART CATH & ARTS W/INJ & ANGIO IMG S&I N/A 11/09/2022 CORONARY ANGIOGRAPHY; W [facility],POSSIBLE PCI (WRVU 5.6) performed by Mario Alberto Escobedo MD at [facility] CATH LABS PRG COMBINED RIGHT & LEFT HEART CATH W/INJ L VENTRICULOGRAPHY, IMG S&I N/A 05/12/2023 COMBINED RIGHT & LEFT HEART CATH,INC INJ FOR L VENTRICULOGRAPHY (WRVU 5.99) performed by Antelmo Sharma MD at [facility] CATH LABS PRO AORTOPLAS FOR SUPRAVALV STEN N/A 09/21/2016 @AORTOPLASTY FOR SUPRAVALVULAR STENOSIS (WRVU 29.33) performed by Alirio Hudson MD at [facility] MAIN OR PRO REPLACE AORTIC VALVE (TAVR/FEDERICO)PERC FEMORAL ARTERY APPROACH 05/12/2023 @TRANSCATHETER AORTIC VALVE REPLACEMENT (TAVR), PERCUTANEOUS FEMORAL (WRVU 22.47) performed by Alirio Hudson MD at [facility] CATH LABS PRO REPLACEMENT PROSTHETIC AORTIC VALVE OPEN W CARDIOPULMONARY BYPASS HOMOGRF/STENT N/A 09/21/2016 @REPLACE AORTIC VALVE, OPEN, W\CPB, W\PROSTHETIC VALVE (WRVU 41.32) performed by Alirio Hudson MD at [facility] MAIN OR Social History: Patient lives alone. Home Setup: Pt lives on one level with tub shower and three steps to enter. DME: none used JET OPERATOR Baseline ADL/Mobility: Independent with ADLs and [...] WFL Vision & Perception: corrective lenses multimedia journalist Communication: WFL Range of motion, strength, coordination: [...] Discharge Disposition (OT): swing bed rehabilitation facility, senior care facility(vs home with support for IADLs) Other [...] Discharge planning. Total Minutes, Occupational Therapy: 28 ([id number]) OT Evaluation Code Rationale: Diagnosis & Pertinent Co-Morbidities affecting Plan of Care: see PMHx Occupational Profile & Client History: Brief Expanded Extensive x Assessment of Occupational Performance: 1-3 performance deficits 3-5 performance deficits x 5 + performance deficits Clinical Decision Making: Low Moderate High x Clinical decision making of moderate complexity using standardized patient assessment instrument and measurable assessment of functional outcome. Pager: [phone] TONG MIKE OT 05/20/2023 Occupational Therapy Rehabilitation [...] on the weekends please page [phone]. * Rylie Rodriguez MD - 05/19/2023 3:59 [...] and plan. Cynthia Blackburn MD Nephrology Pager: [phone] * Diana Espino - 05/19/2023 1:49 PM EDT Business Supervisor Encounter Note Patient Name: Purnima Thacker : [id number] MR#: [id number] Admit Date: 05/08/2023 9:14 AM Hospital Day [...] returning home alone. Anticipated Discharge Disposition (PT): senior care facility, swing bed rehabilitation facility Consult Recommendations: [...] as stated. Total Minutes, Physical Therapy: 38 ([phone]) Henrik Dale CANDY Navarrete Pager: [phone] Physical Therapy Inpatient Rehabilitation Department * Nico [...] 0600 and on the weekends please page [phone]. * Laure Ricks PA - 05/19/2023 7:56 [...] Ricks PA-C Interventional Radiology IR Team Pager [phone] * Consuelo Espinoza RN - 05/18/2023 4:13 PM EDT ANGIO NURSING DATABASE Name: Purnima Thacker Date of : 1955 AGE: 67 y.o. Address: [address] [place] [phone] (home) Mobile: No relevant phone numbers on [...] fraction I35.0 Mild coronary artery disease by [facility] 11/09/2022 I25.10 Heart failure with reduced [...] who is being followed by nephrology for EAVNS with unknown baseline iso contrast and TAVR. [...] and plan. Cynthia Blackburn MD Nephrology Pager: [phone] * Magdalena Puri, ANURAG - 05/18/2023 10:51 AM EDT Images from the original note were not included. [facility] [address], [place] [phone] STRUCTURAL HEART DISEASE CONSULTATION NOTE PRIMARY CARE [...] stenosis. She is now status post TAVR Enwzb-wi-Srtgo with a 23 mm Lai 3 THV 05/12/[address] Sharma. Preliminary findings: Successful right transfemoral TAVR Apekz-km-Jtbdy with a 23 mm Lai 3 THV. [...] - 05/12 Transferred to [facility] post- TAVR for pressor/inotropic support [...] ejection fraction Mild coronary artery disease by [facility] 11/09/2022 Heart failure with reduced ejection [...] mg 81 mg Oral Daily Mara Serrano MANAGER CLINICAL RESEARCH 81 mg at 05/18/23 0826 ondansetron (pf) [...] left ventricular ejection fraction is 25% by Sameul's biplane. There is apical and anteroseptal akinesis [...] stenosis. She is now status post TAVR Hydid-qg-Shuez with a 23 mm Lai 3 THV [...] Magdalena Puri APRN Structural Heart Team Pager [phone] Team Office Please see addendum by Dr. Sharma for final plan and recommendations Associated attestation - Antelmo Sharma MD - 05/19/2023 10:52 PM EDT I have reviewed Magdalena Puri APRN's above history and I agree with the details as written. The assessment and plan were formulated in discussion with me and I agree with them as documented. Antelmo Sharma MD Pager [phone] * Nico Palacios PA - 05/18/2023 8:13 [...] 0600 and on the weekends please page [phone]. * Loli Hernandez, PT - 05/17/2023 5:27 [...] returning home alone. Anticipated Discharge Disposition (PT): senior care facility, swing bed rehabilitation facility Consult Recommendations: [...] plan as stated. Time IN / OUT: 3676-2154 Total Minutes, Physical Therapy: 54 Billing Code: te-sx2, te-f, gait LOLI HERNANDEZ PT Pager: [phone] Physical Therapy Inpatient Rehabilitation Department * Cynthia [...] Well controlled. Cynthia Blackburn MD Nephrology Pager: [phone] * Mara Serrano, MANAGER CLINICAL RESEARCH - 05/17/2023 8:26 AM EDT Cardiac Surgery [...] 0600 and on the weekends please page [phone]. * Guerda Del Valle - 05/16/2023 10:44 AM EDT Nutrition Services Note - Low Nutrition Acuity Purnima Thacker is a 67 y.o. female Reason for intervention: hospital day 9 Nutrition Plan: Continue diet order Encourage good PO Lasix and Zofran noted Added special serve: open containers Monitor weight Patient scheduled for a hospital day 9 nutrition evaluation. Customer Complaint Service Supervisor met with pt at bedside. Pt reports that her appetite and PO has much improved since admission. Denies nausea/vomiting or trouble chewing/swallowing. Customer Complaint Service Supervisor provided snack list but pt not interested in adding snacks at this time. Her only concern was that she is worried that she will eat too much which will cause too much pressure in her stomach. Customer Complaint Service Supervisor assured pt and suggested eating smaller but [...] Last Bowel Movement: 05/10/23 Guerda Del Valle Production Honing Machine Operator * Vinod Juárez PA - [...] 0600 and on the weekends please page [phone]. * Michael Jeffers MD - 05/16/2023 8:11 AM EDT Images from the original note were not included. Hypertension-Nephrology Inpatient Follow-up Purnima Thacker [id number] 1955 ID: 67 y.o. old female seen [...] IRONSAT 12 (L) 05/16/2023 SFOLATE >20.0 07/03/2022 [id number] 07/03/2022 Lab Results Component Value Date [...] Dr. Ayoub. Please contact me at phone: [phone] or pager: [phone] with any questions. Michael Jeffers MD Nephrology [...] -Nephrology consulted, labs and renal US ordered -Joiner removed, ambulated around the unit -bilateral pleural [...] 0600 and on the weekends please page [phone]. * Hortencia Cody MD - 05/15/2023 2:07 [...] not included. Hypertension-Nephrology Inpatient Follow-up Purnima Thacker [id number] 1955 ID: 67 y.o. old female seen [...] HGB 7.8 (L) 05/13/2023 SFOLATE >20.0 07/03/2022 [id number] 07/03/2022 Lab Results Component Value Date [...] Dr. Ayoub. Please contact me at phone: [phone] or pager: [phone] with any questions. Michael Jeffers MD Nephrology [...] outlined inthis evaluation. HAVEN BA, PT Pager: [phone] Physical Therapy Inpatient Rehabilitation Department Time IN / OUT: 5151-2629 Total time: Total Minutes, Physical Therapy: 30 [...] 0600 and on the weekends please page [phone]. * Antelmo Sharma MD - 05/14/2023 7:56 AM EDT Images from the original note were not included. [facility] [place] [phone] STRUCTURAL HEART DISEASE CONSULTATION NOTE PRIMARY CARE [...] stenosis. She is now status post TAVR Qhxyt-mu-Xapam with a 23 mm Lai 3 THV 05/12/[address] Sharma. Preliminary findings: Successful right transfemoral TAVR Bxdap-xu-Ssefc with a 23 mm Lai 3 THV. [...] ejection fraction Mild coronary artery disease by [facility] 11/09/2022 Heart failure with reduced ejection [...] stenosis. She is now status post TAVR Fzccr-wk-Jxyfb with a 23 mm Ali 3 THV 05/12/[address] Sharma. Janet TAVR case notable for coronary LAD protective IMNNA. Status post TAVR, the patient was transferred [...] Dale ANURAG Kaplan Structural Heart Team Pager [phone] Team Office Please see addendum by Dr. [...] exposure. Nephrology consultationtoday. Antelmo Sharma MD Pager [phone] * Antelmo Cardenas RN - 05/14/2023 5:18 AM EDT Pt AOx4, complaining of mild/moderate generalized pain (states her Meloxicam is effective at home) currently refusing prn oxycodone. NAEON, hemodynamically stable on Milrinone, Maps >65, ST in [id number]'s down to NSR with frequent multifocal PVC's. [...] original note were not included. [facility] [place] [address] STRUCTURAL HEART DISEASE PROGRESS NOTE PRIMARY CARE [...] stenosis. She is now status post TAVR Twqqy-sm-Cidfq with a 23 mm Lai 3 THV 05/12/[address] Sharma. Preliminary findings: Successful right transfemoral TAVR Zvovn-kt-Qgygv with a 23 mm Lai 3 THV. [...] or perforation. Interval Events: - Transferred to [facility] post- TAVR for pressor/inotropic support [...] ejection fraction Mild coronary artery disease by [facility] 11/09/2022 Heart failure with reduced ejection [...] mL infusion 0.125 mcg/kg/min Intravenous Continuous Nico Palaicos PA 2.9 mL/hr at 05/13/23 0600 0.125 [...] stenosis. She is now status post TAVR Axvxg-tt-Rvyke with a 23 mm Lai 3 THV [...] Brody Kaplan APRN Structural Heart Team Pager [phone] Team Office Please see addendum by Dr. [...] DAPT moving forward. Antelmo Sharma MD Pager [phone] * Bonita Miguel PA - 05/13/2023 8:30 AM EDT Cardiac Surgery Progress Note Purnima Thacker is a 67 y.o. 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 PMH of s/p tissue AVR (2017), mixed connective tissue disease HTN, HLD, NICOLAS, diverticulosis, rosacea, essential tremor, and depression. 24h Events: From process laboratory specialist for above procedure Extubated at ~1600 to [...] soft b/l, no evidence of hematoma. Tubes/Lines/Drains: Joiner, RIJ, A-line, Art, PIV Assessment/Plan: 67 y.o. [...] 0600 and on the weekends please page [phone]. * Onelia Schwartz MD - 05/12/2023 1:44 [...] ejection fraction Mild coronary artery disease by [facility] 11/09/2022 Heart failure with reduced ejection [...] FiO2 weaned to 40%. 1105: ABG 7.34/42/73/22 8915-2436: SBT performed and passed on these settings [...] PCP: Magdalena Acosta MD PCP phone number: [phone] Date of Admission: 05/08/2023 ( Hospital Day [...] 1447 PHART -- 7.34* 7.34* -- -- NZY0UFR -- 30* 30* -- -- PO2ART -- 72* 81* -- -- DAM4BJA -- 16.0* 15.7* -- -- LACTATEVEN 2.4* 2.7* 2.7* 4.8* 2.9* VBG (Venous Blood Gas) Recent Labs 05/12/23 0700 05/12/23 0318 05/12/2310505/11/23193905/11/23 1447 LACTATEVEN 2.4* 2.7* 2.7* 4.8* 2.9* Mixed Venous Sat Recent Labs 05/12/23 0508 05/12/23 0321 05/12/23 0114 05/12/23 0030 [id number] 30.7 32.7 37.3 25.1 Objective: Vitals Last [...] questions please contact the health health care coordinator that requested your imaging first. Electronically signed by: ALIX RUVALCABA MD, [facility] ([phone]), at 05/10/2023 1:[address] Cardiac for [...] questions please contact the health health care coordinator that requested your imaging first. Electronically signed by: Cullen Narayanan MD, [facility] ([phone]), at 05/11/2023 4:[address] Angiogram Abdomen [...] questions please contact the health health care coordinator that requested your imaging first. Electronically signed by: Eileen Gomes MD, [facility] ([phone]), at 05/11/2023 2:42 PM XR Chest One [...] questions please contact the health health care coordinator that requested your imaging first. Electronically signed by: Will Rowe MD, [facility] ([phone]), at 05/11/2023 11:57 PM XR Chest One [...] questions please contact the health health care coordinator that requested your imaging first. Electronically signed by: Will Rowe MD, [facility] ([phone]), at 05/12/2023 3:16 AM Assessment & Plan: [...] and inotrope. She is planned for a rwzql-td-npsni TAVR this morning, which should hopefully improve [...] MD, FACP, FACC Section of Cardiovascular Medicine [facility] Asset Protection Associatebuffet server [facility] * Noreen Deutsch RN - 05/12/2023 [...] ejection fraction Mild coronary artery disease by [facility] 11/09/2022 Heart failure with reduced ejection [...] 05/11/2023 4:11 PM EDT Reported off to PHOTO ENGRAVER and pt transferred over in the bed for higher level of care. * Antelmo Sharma MD - 05/11/2023 9:45 AM EDT Images from the original note were not included. [facility] [place] [id number] STRUCTURAL HEART DISEASE CONSULTATION NOTE PRIMARY CARE [...] who had been referred for possible TAVR yohkm-hk-rnmkr evaluation. Her primary symptoms are of dyspnea [...] [facility]. 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 She [...] ejection fraction Mild coronary artery disease by [facility] 11/09/2022 Heart failure with reduced ejection [...] Lactate, whole blood, send to lab ([facility]) Result Value Ref Range Lactate WB 3.1 (H) 0.5 - 2.2 mmol/L Heparin (unfractionated) Level Result Value Ref Range Heparin UFH Level 0.46 IU/mL Lactate, whole blood, send to lab ([facility]) Result Value Ref Range Lactate WB 1.8 [...] leads Confirmed by MD Harshil, Enrique Bell ([id number]) on 05/10/2023 8:11:46 AM Cardiac Cath 11/09/2022 [...] she was transferred to [facility] this afternoon for further management. TAVR CT imaging support for adequate ileofemoral access. Given her acute deterioration today, will planfor RTF TAVR on 05/12/2023. Brody Kaplan ANURAG Structural Heart Disease Pager [phone] Please see addendum by Dr. Sharma for [...] signed and dated. Antelmo Sharma MD Pager [phone] * Harini Lance MD - 05/11/2023 6:06 AM EDT Images from the original note were not included. Cardiology Progress Note Patient info: Name: Purnima Thacker : 1955 PCP: Magdalena Acosta MD PCP phone number: [phone] Date of Admission: 05/08/2023 ( Hospital Day [...] questions please contact the health health care coordinator that requested your imaging first. Electronically signed by: ALIX RUVALCABA MD, [facility] ([phone]), at 05/10/2023 1:25 PM TTE: 05/08 -Left [...] 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) Mild coronary artery disease by [facility] 11/09/2022 Hyperlipidemia, unspecified NICOLAS (obstructive sleep [...] PCP: Magdalena Acosta MD PCP phone number: [phone] Date of Admission: 05/08/2023 ( Hospital Day [...] 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) Mild coronary artery disease by [facility] 11/09/2022 Hyperlipidemia, unspecified NICOLAS (obstructive sleep [...] PCP: Magdalena Acosta MD PCP phone number: [phone] Date of Admission: 05/08/2023 ( Hospital Day [...] Gas) No results found for: PHART, PO2ART, QBW4LOK, BET7OSR Microbiology: Microbiology Results (Last 30 days) No [...] Diet: Daily Healthy Menu Choices/Cardiac diet ([facility]-Diet) Lines: Peripheral IV [...] 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) Mild coronary artery disease by [facility] 11/09/2022 Hyperlipidemia, unspecified NICOLAS (obstructive sleep [...] fraction I35.0 Mild coronary artery disease by [facility] 11/09/2022 I25.10 Heart failure with reduced ejection fraction due to heart valve disease I50.20, I38 Cardiogenic shock R57.0 S/P TAVR (transcatheter aortic valve replacement) Z95.2 Past Medical History: Diagnosis Date Anemia Past Surgical History: Procedure Laterality Date PRG CATH PLMT LEFT HEART CATH & ARTS W/INJ & ANGIO IMG S&I N/A 11/09/2022 CORONARY ANGIOGRAPHY; W [facility],POSSIBLE PCI (WRVU 5.6) performed by Mario Alberto Escobedo MD at [facility] CATH LABS PRO AORTOPLAS FOR SUPRAVALV STEN N/A 09/21/2016 @AORTOPLASTY FOR SUPRAVALVULAR STENOSIS (WRVU 29.33) performed by Alirio Hudson MD at [facility] MAIN OR PRO REPLACEMENT PROSTHETIC AORTIC VALVE OPEN W CARDIOPULMONARY BYPASS HOMOGRF/STENT N/A 09/21/2016 @REPLACE AORTIC VALVE, OPEN, W\CPB, W\PROSTHETIC VALVE (WRVU 41.32) performed by Alirio Hudson MD at [facility] MAIN OR Social History and [...] Verio test strips Strip USE DAILY OneTouch [employer] Plus Lancet 33 gauge Misc USE DAILY [...] fraction I35.0 Mild coronary artery disease by [facility] 11/09/2022 I25.10 Heart failure with reduced ejection fraction due to heart valve disease I50.20, I38 Cardiogenic shock R57.0 S/P TAVR (transcatheter aortic valve replacement) Z95.2 Past Medical History: Diagnosis Date Anemia Past Surgical History: Procedure Laterality Date PRG CATH PLMT LEFT HEART CATH & ARTS W/INJ & ANGIO IMG S&I N/A 11/09/2022 CORONARY ANGIOGRAPHY; W [facility],POSSIBLE PCI (WRVU 5.6) performed by Mario Alberto Escobedo MD at [facility] CATH LABS PRO AORTOPLAS FOR SUPRAVALV STEN N/A 09/21/2016 @AORTOPLASTY FOR SUPRAVALVULAR STENOSIS (WRVU 29.33) performed by Alirio Hudson MD at [facility] MAIN OR PRO REPLACEMENT PROSTHETIC AORTIC VALVE OPEN W CARDIOPULMONARY BYPASS HOMOGRF/STENT N/A 09/21/2016 @REPLACE AORTIC VALVE, OPEN, W\CPB, W\PROSTHETIC VALVE (WRVU 41.32) performed by Alirio Hudson MD at [facility] MAIN OR Social History and [...] problems to display. HPI Per admitting physician: uPrnima reports that over the past several months to years she has noticed dyspnea on exertion, progressing to the point where she cannot walk short distances on flat ground to her mailbox without getting significantly short of breath. This has acutely worsened in the past four days, which prompted her to present to [facility]. She also endorses some intermittent retrosternal chest pain with exertion.She endorses some dizziness with exertion, but has not gotten faint or passed out. At [facility] she was noted to be afebrile, blood pressure 105/64, HR 120s, satting 95% on 2L NC. Labs from [facility] are below, of note she [...] which prompted the transfer to us. [facility] labs: CBC - Hgb 10.5 CMP - Cr 1.1 BNP 25739 HsTrop 1358 Lactate 1.6 D-dimer 1183 Interval [...] Code Status: Attempt Cardiopulmonary Resuscitation - Inpatient [facility] Roman Reid MD Internal Medicine PGY-1 Pager [phone], M1-S1 Service Associated attestation - Juan Luis Gonzalez MD - 05/08/2023 10:00 PM EDT Cardiology Attending Addendum Active Hospital Problems Diagnosis Symptomatic severe aortic stenosis with low ejection fraction Heart failure with reduced ejection fraction due to heart valve disease Mild coronary artery disease by [facility] 11/09/2022 Hyperlipidemia, unspecified History of aortic [...] PCP: Magdalena Acosta MD PCP phone number: [phone] Date of Admission: 05/08/2023 ( Hospital Day 0 days ) Attending:Enrique Chua MD ID: Purnima Thacker is a 67 y.o. female w/ PMH of s/p bioprosthetic AVR in 2016 with recent concern for severe restenosis, HTN, HLD, mixed connective tissue disease, who presents in transfer from [facility] with worsening BONILLA and weight [...] days, which promptedher to present to [facility]. She also endorses some intermittent retrosternal chest pain with exertion. She endorses some dizziness with exertion, but has not gotten faint or passed out. At [facility] she was noted to be afebrile, blood pressure 105/64, HR 120s, satting 95% on 2L NC. Labs from [facility] are below, of note she [...] which prompted the transfer to us. [facility] labs: CBC - Hgb 10.5 CMP - Cr 1.1 BNP 61854 HsTrop 1358 Lactate 1.6 D-dimer 1183 Vasoactive [...] disease, who [facility] BONILLA and weight gain [...] Diet: Daily Healthy Menu Choices/Cardiac diet ([facility]-Diet) DVT Prophylaxis: heparin [...] remains HD stable, can transfer out of [facility]. -Structural Heart consult; will need inpatient TAVR. [...] to the planned procedure. Hand Hygiene: The checker cashier did perform hand hygiene prior to arterial [...] Successful arterial line placement. Crispin Timmons MD Sighter Associated attestation - Onelia Schwartz MD - [...] (flow was non-pulsatile) and appearance of blood. Joiner-Marily catheter was placed and locked at 55 [...] information for follow-up [facility], [facility] [address] [place] [address] Cardiac Rehab, [facility] [address] [place] [address] [facility] [address] [place] [address] Transportation: family or friend will provide *Brother [...] Type: *No Product type* / Secondary Insurance: [employer] [place] Prescription Coverage: Yes This plan was formulated with input from patient, family (please identify family/friend involved ifapplicable) and team. All are in agreement with plan. Aliza Martino MSN-Ed, RN ACM clinical research tech Office of Care Management Pager #[phone] * Plan of Care - Favian Mckeon [...] Chaudhary RN - 05/21/2023 4:46 PM EDTSummary: [facility] referral OFFICE OF CARE MANAGEMENT [...] Type: *No Product type* / Secondary Insurance: [employer] [place] Last Physical Therapy Recommendation: (Home with assist from Brother; Friend arriving Tues) with walker, front wheeled Last Occupational Therapy Recommendation: swing bed rehabilitation facility, senior care facility (vs home with support for IADLs) with walker, front wheeled, shower chair Plan for discharge is: Home w/ Services Outpatient Agency/Support Group Needs: Homecare agency Home Health Services: Physical Therapy, Occupational Therapy Agency Referrals: I have met with the patient to: discuss discharge planning needs. describing our affiliations within the [facility] and educate about their right to choose where referrals are sent. provide a list of Home Health Agencies / Durable Medical Equipment vendors which serve their preferred geographic area. They have requested referrals to: [facility] [address] [place] [address] Ortho Care Located @ [place], [place] Note routed to a Laboratory Aide who will communicate referrals to facilities and provide any required information. Transportation: family or friend will provide *Brother Raymond on Tuesday 05/22 at 1000 Barriers to discharge: Does not have home 22/02 assist available until tomorrow Tuesday 05/22 Plan going forward: Discharge home into the 22/02 home care of brother Raymond with [facility] and [facility] PT/OT services on Tuesday 05/22 [...] Attending: All Staff: Staff Role Juanita Almaguer Bag Machine Set Up Operator Laure Ricks PA Physician Tax Investigator Magdalena Rodriguez director of operations Nurse Consuelo Espinoza, director of operations Nurse Post-operative diagnosis/Indication: Right pleural effusion Name [...] Type: *No Product type* / Secondary Insurance: [facility] Last Physical Therapy Recommendation: senior care facility, swing bed rehabilitation facility with to [...] discuss discharge planning needs. provide the [facility], Office of Care Management letter from the Specifications Checker pertaining to rehab referrals. provide a letter describing our affiliations within the [facility] and educate about their right to choose where referrals are sent. provide the CMS Star Quality Rating handout. review the different levels of rehab including SNF, swing, and acute. provide a list of facilities within their preferred geographic area. request that they provide at least three choices for referral. They have requested referrals to: [facility] [address] [place] [address] [facility]) [address] [place] [address] (Accepts pts only after exhausting all other local SNF options) [facility] ([facility]) ([facility]) [address] [place] [address] PHONE: [phone] FAX: [phone] Simin Benavides [place] ([facility]) [facility]) [address] [place] [address] PHONE: [phone] FAX: [phone] Note routed to a Laboratory Aide who will communicate referrals to facilities and [...] RN - 05/17/2023 10:25 AM EDT [facility] CARDIAC REHABILITATION Purnima Thacker was seen today regarding participation in the outpatient Phase 2 Cardiac Rehabilitation at [facility]. The patient agrees to a [...] from the original note were not included. [facility] NEPHROLOGY/HYPERTENSION CONSULT NOTE PATIENT: Purnima Thacker [...] in her course. She ultimately underwent a soqxy-hp-vxixr procedure on and tolerated it well (see [...] 1423 05/12/23 1105 PHART 7.39 7.37 7.34* SLD1TBF 33* 36 42 PO2ART 101 102 73* VBY2VTR 19.5* 20.4 22.1 LACTATEVEN 1.5 1.8 2.8* QNO1WXO 40 40 40 PFRATIOART2 252 255 182 VBG (Venous Blood Gas) Recent Labs 05/12/23 1557 05/12/23 1423 05/12/23 1105 LACTATEVEN 1.5 1.8 2.8* Mixed Venous Sat Recent Labs 05/12/23 1425 05/12/23 0508 05/12/23 0321 S2ELUC7 59.9 30.7 32.7 LFT's: Recent Labs 05/14/23 0110 05/13/23 0115 05/12/23 0600 BILITOT 0.4 0.5 0.9 BILIDIR -- 0.3 -- ALBUMIN 3.6 3.0* 3.5 ALKPHOS 86 85 100 ALT 437* 903* 1,174* AST 319* 792* 1,435* No results found for: UPROTCREAT No results found for: TPROTEINPEP, ALBELECT No results found for: MICROALBUR, BVZV11RKZ No results found for: HA1C Lab Results Component Value Date CALCIUM 8.5 05/14/2023 PHOS 4.7 (H) 05/08/2023 No results found for: 25OHVITD MICROBIOLOGY: ProcedureComponentValueUnitsDate/TimeUrine culture [[id number]]Collected: 05/11/231921Lab Status: Final resultSpecimen: Clean Catch UrineUpdated: [...] consulted for assessment if this patient needs DIESEL POWER MECHANIC. Atthis time, we can likely hold off on DIESEL POWER MECHANIC. Her volume status appears sufficient and her metabolic kanwal angements with mild acidosis is not too profound. Patient does not have significant uremic symptoms. We can hold off for today, but the patient is a high risk candidate for needing DIESEL POWER MECHANIC in future daysespecially if her Cr curve trends the direction it is for the next several days. S/p Yfgle-dj-Rocpo TF TAVR: Management per cardiology. On milrinone gtt. PLAN: - Please obtain following diagnostics: renal US, urinalysis, urine prot/Cr ratio, urine albumin/Cr ratio, CK, uric acid, serum osmol, daily VBGs - No acute indications for DIESEL POWER MECHANIC/dialysis. We will keep close eye on Cr trend, volume status, and metabolics to ensure patient still does not need DIESEL POWER MECHANIC as she ensues intrinsic renal recovery - [...] M.H.A., M.A. PGY-V Nephrology-Hypertension Fellow Page # [phone] [facility] [address] 2nd floor, Eligibility Manager [address] [place] [address] * Care Management - Mario Alberto Olmos [...] at 730. Returned to [facility] at 0945. Was intubated in the process laboratory specialist due to agitation. Maintained bedrest for 5 [...] Operative Note Patient Name: Purnima Thacker : [id number] MR#: [id number] Case Date: 05/12/2023 Surgeon: Surgeon(s) and Role: [...] procedure Note: Patient Name: Purnima Thacker : [id number] MR#: [id number] Case Date: 05/12/2023 Operators Surgeon: Surgeon(s) and [...] main with 4.0 x 30 mm Resolute [employer] [employer] Eluting Stent Perclose x1 + Angio-seal 8 Fr x1, RFA Manual pressure, LFA Manual pressure, LFV Endotracheal intubation (performed by cardiac anesthesia) Preliminary findings: Successful right transfemoral TAVR Ugwya-pc-Rppxa with a 23 mm Lai 3 THV. [...] MD, M.Sc. Structural Heart Disease Fellow Pager :[phone] Antelmo Sharma MD Pager [phone] * Op Note - Alirio Hudson MD - 05/12/2023 7:37 AM EDT Preop Diagnosis: Severe aortic stenosis, symptomatic. Postop Diagnosis: Same. Procedure: Transfemoral TAVR procedure with 23mm valve. Surgeon: Alirio Hudson M.D. Aircraft Parts Assembler: Danny CULP Procedure: The patient was taken to the process laboratory specialist. The patient had monitored anesthesia care. 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 [facility] [place] [address] STRUCTURAL HEART DISEASE CONSULTATION NOTE PRIMARY CARE [...] who had been referred for possible TAVR misux-bu-xluwy evaluation. Her primary symptoms are of dyspnea [...] [facility]. 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 PROBLEM LIST: Patient Active Problem List Diagnosis Symptomatic severe aortic stenosis with low ejection fraction Mild coronary artery disease by [facility] 11/09/2022 Heart failure with reduced ejection [...] Lactate, whole blood, send to lab ([facility]) Result Value Ref Range Lactate WB 1.8 [...] leads Confirmed by MD Harshil, Enrique Bell ([id number]) on 05/10/2023 8:11:46 AM Assessment and Plan: [...] Antelmo Sharma MD Structural Heart Disease Pager [phone] * Plan of Care - Sarahi Nice RN - 05/10/2023 3:55 AM EDTSumavis: VALDO Note and Care Plan Sarahi Nice RN assumed care of pt at time of their arrival to room 362 from [facility]. Pt voices shortness of breath [...] from another hospital Location: admitted from [facility] Reason for Hospitalization: Critical aortic stenosis, causing symptoms Past medical History: Past Medical History: Diagnosis Date Anemia Hospitalizations Within the Past 30 Days: no previous admission in last 30 days Current Decision-Making Capacity: Self If AD's have not been completed the following surrogate would be surrogate decision maker per [place] surrogate decision making law. (Only good for 180 days) Any patient receiving care in [place] must abide by [place] law. The hierarchy for surrogate decision making [...] (i) The agent with financial power of program schedule clerk or a conservator appointed in accordance with [...] Current DME: none Home Address confirmed as: [address] [place] [id number] Social & Family Supports: All names listed [...] Product type* / Secondary Insurance: [facility] [place] ONLY if patient has Medicare A&B - Does this patient have secondary insurance?: Yes ; Prescription Coverage: Yes Preferred Pharmacy: updated to [facility] in [facility] Status: Patient is a : No Primary Care Provider confirmed: Magdalena Acosta MD [phone] Patient/Caregiver Goals of Treatment: Potential Needs for [...] of a 2 story home with [address] [facility]. Patient is independent with ADL's [...] of care planning. Alie Bradshaw RN, CM Pager-[phone] * Plan of Care - Emily Lucero RN - 05/08/2023 2:54 PM EDT OUTCOME EVALUATION NOTE: OUTCOME SUMMARY: Pt arrived from [facility]. A&O, no c/o pain or [...] AM EDT Laboratory Appointment Lab at [facility] [place] [facility] [address] [place] [address] 05/12/2024 10:00 AM EDT Office Visit Hematology [place] [phone] Markel Borjas MD [facility] [address] HEMATOLOGY [place] [address] 03/01/2025 4:15 PM EDT Office Visit Dermatology at [place] [address] [facility] [place] [phone] Marek Bonilla MD [address], [place] [address] Scheduled Referrals Name Type Priority Associated Diagnoses [...] Heart Cath W/Inj L Ventriculography, Img S&I (09384) 05/12/2023 7:37 AM EDT Aortic valve stenosis, [...] DOPP (07/08/2023 12:15 PM EST) Pathologist [facility] EF 20 [email or web address] Anatomical Region Laterality Modality Cardiac Other 07/08/2023 10:3 1 AM EST Narrative 07/08/2023 12:26 PM EST [address] [place] [id number] ? Echocardiogram Report Name: PURNIMA THACKER ?Study Date: 07/08/2023 10:31 AMBP: 118/60 mmHg ? Patient Location: : 1955 ? Height: 155 cm ? Account: [id number] Age: 67 yrs ? Weight: 74 kg Gender: Female ?BSA: 1.7 m2 Ordering Physician: ALIRIO HUDSON Referring Physician: VINOD JUÁREZ Performed By: Felicia Norris RDCS Reason For Study: S/P TAVR Exam Location: [facility]. Interpretation Summary Left ventricular systolic [...] no significant change (post-procedure). Procedure Limited - 14351. Doppler - 97083. Color Doppler - 25740. Satisfactory quality. This study is limited because [...] Note Lee Kincaid MD - 07/08/2023 1 [place] [address] Echocardiogram Report Name: PURNIMA THACKER Study Date: 0:31 AMBP: 118/60 mmHg Patient Location: : 1955 Height: 155 cm Account: [id number] Age: 67 yrs Weight: 74 kg Gender: Female BSA: 1.7 m2 Ordering Physician: ALIRIO HUDSON Referring Physician: VINOD JUÁREZ Performed By: Felicia Norris RDCS Reason For Study: S/P TAVR Exam Location: [facility]. Interpretation Summary Left ventricular systolic [...] is nosignificant change (post-procedure). Procedure Limited - 91340. Doppler - 58658. Color Doppler - 57192. Satisfactoryquality. This study is limited because of [...] EST) Glucose 93 65 - 199 mg/dL [facility] Comment:Diabetes: >=200 mg/d L plus symptoms Blood Urea Nitrogen 19(H) 8 - 18 mg/dL [facility] Creatinine 0.81 0.70 - 1.20 mg/dL [facility] Sodium 142 135 - 145 mmol/L [facility] Potassium 3.8 3.5 - 5.0 mmol/L [facility] Comment: Please note: ??Patients with WBC >100,000 may have falsely elevated Potassium levels. ??For accurate Potassium quantification in these patients send serum separator tube (gold top) for subsequent determinations. ??Contact the Clinical Chemistry Laboratory if there are any questions. Chloride 104 98 - 107 mmol/L [facility] Carbon Dioxide 26 22 - 31 mmol/L [facility] Anion Gap 12 5 - 15 mmol/L [facility] Calcium 10.2 8.5 - 10.5 mg/dL [facility] Protein, Total 7.4 6.1 - 8.0 g/dL [facility] Albumin 4.1 3.2 - 5.2 g/dL [facility] Aspartate Aminotransferase 24 0 - 30 unit/L [facility] Alanine Aminotransferase 12 0 - 30 unit/L [facility] Alkaline Phosphatase 93 35 - 105 unit/L [facility] Bilirubin, Total 0.3 0.2 - 1.3 mg/dL [facility] Est Glomerular Filtration Rate 80 >=60 mL/min/1. 73 m?? [facility] Comment: This patient's estimated [...] Address City/State/[facility] Co de Phone Number [facility] [place] [address] * (ABNORMAL) Basic Metabolic Panel (non-fasting) (05/22/2023 3:57 AM EDT) Pathologist [facility] Glucose 88 65 - 199 mg/dL [facility] Comment:Diabetes: >=200 mg/d L plus symptoms Blood Urea Nitrogen 21(H) 8 - 18 mg/dL [facility] Creatinine 0.69(L) 0.70 - 1.20 mg/dL [facility] Sodium 136 135 - 145 mmol/L [facility] Potassium 3.6 3.5 - 5.0 mmol/L [facility] Comment: Please note: ??Patients with WBC >100,000 may have falsely elevated Potassium levels. ??For accurate Potassium quantification in these patients send serum separator tube (gold top) for subsequent determinations. ??Contact the Clinical Chemistry Laboratory if there are any questions. Chloride 102 98 - 107 mmol/L [facility] Carbon Dioxide 23 22 - 31 mmol/L [facility] Anion Gap 11 5 - 15 mmol/L [facility] Calcium 8.6 8.5 - 10.5 mg/dL [facility] Est Glomerular Filtration Rate 95 >=60 mL/min/1. 73 m?? [facility] Comment: This patient's estimated [...] Lab Mara Maggie OSBORN CHEMISTRY ORDERABL ES [facility] [place] [address] * (ABNORMAL) Basic Metabolic Panel (non-fasting) (05/21/2023 5:06 AM EDT) Pathologist [facility] Glucose 87 65 - 199 mg/dL [facility] Comment:Diabetes: >=200 mg/d L plus symptoms Blood Urea Nitrogen 25(H) 8 - 18 mg/dL [facility] Creatinine 0.84 0.70 - 1.20 mg/dL [facility] Sodium 136 135 - 145 mmol/L [facility] Potassium 3.6 3.5 - 5.0 mmol/L [facility] Comment: Please note: ??Patients with WBC >100,000 may have falsely elevated Potassium levels. ??For accurate Potassium quantification in these patients send serum separator tube (gold top) for subsequent determinations. ??Contact the Clinical Chemistry Laboratory if there are any questions. Chloride 102 98 - 107 mmol/L [facility] Carbon Dioxide 26 22 - 31 mmol/L [facility] Anion Gap 8 5 - 15 mmol/L [facility] Calcium 8.9 8.5 - 10.5 mg/dL [facility] Est Glomerular Filtration Rate 76 >=60 mL/min/1. 73 m?? [facility] Comment: This patient's estimated [...] Narrative Resulting Agency Comment Spec In Lab [facility] MANAGER CLINICAL RESEARCH CHEMISTRY ORDERABL ES Performing Organization Address [facility] Co de Phone Number [facility] [place] [address] * Lavender Tube HOLD (05/20/2023 2:52 AM EDT) Lavender Hold Sample in lab. [facility] Blood Venous Draw / Unknown 05/20/2023 2:52 AM EDT 05/20/2023 3:04 AM EDT [facility] MANAGER CLINICAL RESEARCH HEMATOLOGY ORDERAB LES Performing Organization Address [facility] Co de Phone Number [facility] [place] [address] * (ABNORMAL) Basic Metabolic Panel (non-fasting) (05/20/2023 2:52 AM EDT) Glucose 152 65 - 199 mg/dL [facility] Comment:Diabetes: >=200 mg/d L plus symptoms Blood Urea Nitrogen 33(H) 8 - 18 mg/dL [facility] Creatinine 0.82 0.70 - 1.20 mg/dL [facility] Sodium 137 135 - 145 mmol/L [facility] Potassium 3.7 3.5 - 5.0 mmol/L [facility] Comment: Please note: ??Patients with WBC >100,000 may have falsely elevated Potassium levels. ??For accurate Potassium quantification in these patients send serum separator tube (gold top) for subsequent determinations. ??Contact the Clinical Chemistry Laboratory if there are any questions. Chloride 99 98 - 107 mmol/L [facility] Carbon Dioxide 22 22 - 31 mmol/L [facility] Anion Gap 16(H) 5 - 15 mmol/L [facility] Calcium 9.0 8.5 - 10.5 mg/dL [facility] Est Glomerular Filtration Rate 78 >=60 mL/min/1. 73 m?? [facility] Comment: This patient's estimated [...] Agency Comment Spec In Lab Mara [place] MANAGER CLINICAL RESEARCH CHEMISTRY ORDERABL ES Performing Organization Address [facility] Co de Phone Number [facility] [place] [address] * (ABNORMAL) Potassium (05/20/2023 2:52 AM EDT) [facility] Signature Potassium 3.4(L) 3.5 - 5.0 mmol/L [facility] Comment: Please note: ??Patients with WBC >100,000 may have falsely elevated Potassium levels. ??For accurate Potassium quantification in these patients send serum separator tube (gold top) for subsequent determinations. ??Contact the Clinical Chemistry Laboratory if there are any questions. Blood 05/20/2023 2:52 AM EDT 05/20/2023 3:03 AM EDT Narrative Resulting Agency Comment Spec In Lab Mara [place] MANAGER CLINICAL RESEARCH CHEMISTRY ORDERABL ES Performing Organization Address City/[facility] Co de Phone Number [facility] [place] [address] * XR Chest PA & Lateral (Generic) [...] questions please contact the health health care coordinator that requested your imaging first. ? Electronically signed by: Chyna Johnson MD, [facility] ??([phone]), at 05/19/2023 2:19 PM Narrative 05/19/2023 2:19 [...] have questions please contactthe health health care coordinator that requested your imaging first. Electronically signed by: hCyna Johnson MD, [facility]([phone]), at 05/19/2023 2:19 PM Alirio Hudson MD IMG DX ORDERABLES * (ABNORMAL) Basic Metabolic Panel (non-fasting) (05/19/2023 5:49 AM EDT) Glucose 93 65 - 199 mg/dL [facility] Comment:Diabetes: >=200 mg/d L plus symptoms Blood Urea Nitrogen 45(H) 8 - 18 mg/dL [facility] Creatinine 1.02 0.70 - 1.20 mg/dL [facility] Sodium 138 135 - 145 mmol/L [facility] Potassium 3.9 3.5 - 5.0 mmol/L [facility] Comment: Please note: ??Patients with WBC >100,000 may have falsely elevated Potassium levels. ??For accurate Potassium quantification in these patients send serum separator tube (gold top) for subsequent determinations. ??Contact the Clinical Chemistry Laboratory if there are any questions. Chloride 102 98 - 107 mmol/L [facility] Carbon Dioxide 26 22 - 31 mmol/L [facility] Anion Gap 10 5 - 15 mmol/L [facility] Calcium 9.7 8.5 - 10.5 mg/dL [facility] Est Glomerular Filtration Rate 60 >=60 mL/min/1. 73 m?? [facility] Comment: This patient's [...] Agency Comment Spec In Lab Mara Serrano MANAGER CLINICAL RESEARCH [place] [address] * IR Chest Tube Placement Right (05/18/2023 [...] EDT) Glucose 95 65 - 199 mg/dL [facility] Comment:Diabetes: >=200 mg/d L plus symptoms Blood Urea Nitrogen 71(H) 8 - 18 mg/dL [facility] Comment:result rechecked-[facility] Creatinine 1.64(H) 0.70 - 1.20 mg/dL [facility] Comment:result rechecked-[facility] Sodium 137 135 - 145 mmol/L [facility] Potassium 3.7 3.5 - 5.0 mmol/L [facility] Comment: Please note: ??Patients with WBC >100,000 may have falsely elevated Potassium levels. ??For accurate Potassium quantification in these patients send serum separator tube (gold top) for subsequent determinations. ??Contact the Clinical Chemistry Laboratory if there are any questions. Chloride 100 98 - 107 mmol/L [facility] Carbon Dioxide 24 22 - 31 mmol/L [facility] Anion Gap 13 5 - 15 mmol/L [facility] Calcium 9.7 8.5 - 10.5 mg/dL [facility] Est Glomerular Filtration Rate 34(L) >=60 mL/min/1. 73 m?? [facility] Comment: This patient's estimated [...] Agency Comment Spec In Lab Mara Serrano MANAGER CLINICAL RESEARCH CHEMISTRY ORDERABL ES [facility] [place] [address] * XR Chest PA & Lateral (Generic) (05/17/2023 9:29 AM EDT) Anatomical Region Laterality Modality Chest N/A Digital Radiogra phy Impressions 05/17/2023 11:46 AM EDT Small pleural effusions, right greater than left. No pneumothorax. I have personally reviewed the image(s) and the resident's interpretation and agree with the findings, Ghassan eRyes MD at 05/17/2023 11:46 AM Thank you for letting us participate in the care of this patient. ??If you are a health care provider and have any questions regarding this report, please contact the number below. ??For patients who have questions please contact the health health care coordinator that requested your imaging [...] have questions please contactthe health health care coordinator that requested your imaging first. Electronically signed by: Ghassan Reyes MD, [facility]([phone]), at 05/17/2023 11:46 AM Alirio Hudson MD IMG DX ORDERABLES * (ABNORMAL) Comprehensive metabolic panel (non-fasting) (05/17/2023 4:35 AM EDT) Glucose 89 65 - 199 mg/dL [facility] Comment:Diabetes: >=200 mg/d L plus symptoms Blood Urea Nitrogen 97(H) 8 - 18 mg/dL [facility] Creatinine 2.97(H) 0.70 - 1.20 mg/dL [facility] Comment:result rechecked-[facility] Sodium 135 135 - 145 mmol/L [facility] Potassium 4.1 3.5 - 5.0 mmol/L [facility] Comment: Please note: ??Patients with WBC >100,000 may have falsely elevated Potassium levels. ??For accurate Potassium quantification in these patients send serum separator tube (gold top) for subsequent determinations. ??Contact the Clinical Chemistry Laboratory if there are any questions. Chloride 97(L) 98 - 107 mmol/L [facility] Carbon Dioxide 22 22 - 31 mmol/L [facility] Anion Gap 16(H) 5 - 15 mmol/L [facility] Calcium 9.6 8.5 - 10.5 mg/dL [facility] Protein, Total 6.5 6.1 - 8.0 g/dL [facility] Albumin 3.7 3.2 - 5.2 g/dL [facility] Aspartate Aminotransferase 58(H) 0 - 30 unit/L [facility] Alanine Aminotransferase 66(H) 0 - 30 unit/L [facility] Alkaline Phosphatase 86 35 - 105 unit/L [facility] Bilirubin, Total 0.6 0.2 - 1.3 mg/dL [facility] Est Glomerular Filtration Rate 17(L) >=60 mL/min/1. 73 m?? [facility] Comment: This patient's estimated [...] Lab Alirio Hudson MD CHEMISTRY ORDERABLE S [facility] [place] [address] * Potassium (05/16/2023 11:15 PM EDT) Potassium 3.7 3.5 - 5.0 mmol/L [facility] Comment: Please note: ??Patients [...] CHEMISTRY ORDERABLE S Performing Organization Address [facility]/ZIP Co de Phone Number [facility] [place] [address] * Magnesium (05/16/2023 5:22 PM EDT) Pathologist [facility] Magnesium 0.96 0.69 - 1.07 mmol/L [facility] Blood 05/16/2023 5:22 PM EDT 05/16/2023 5:27 PM EDT Narrative Resulting Agency Comment Spec In Lab Alirio Hudson MD CHEMISTRY ORDERABLE S Performing Organization Address [facility] Co de Phone Number [facility] [place] [address] * (ABNORMAL) Basic Metabolic Panel (non-fasting) (05/16/2023 5:22 PM EDT) Pathologist [facility] Glucose 106 65 - 199 mg/dL [facility] Comment:Diabetes: >=200 mg/d L plus symptoms Blood Urea Nitrogen 103(H) 8 - 18 mg/dL [facility] Creatinine 3.91(H) 0.70 - 1.20 mg/dL [facility] Comment:result rechecked-imm Sodium 132(L) 135 - 145 mmol/L [facility] Potassium 3.6 3.5 - 5.0 mmol/L [facility] Comment: Please note: ??Patients with WBC >100,000 may have falsely elevated Potassium levels. ??For accurate Potassium quantification in these patients send serum separator tube (gold top) for subsequent determinations. ??Contact the Clinical Chemistry Laboratory if there are any questions. Chloride 92(L) 98 - 107 mmol/L [facility] Carbon Dioxide 22 22 - 31 mmol/L [facility] Anion Gap 18(H) 5 - 15 mmol/L [facility] Calcium 9.7 8.5 - 10.5 mg/dL [facility] Est Glomerular Filtration Rate 12(L) >=60 mL/min/1. 73 m?? [facility] Comment: This patient's estimated [...] S Performing Organization Address City/[facility]/ZIP Co de Phone Number [facility] [place] [address] * (ABNORMAL) Potassium (05/16/2023 11:43 AM EDT) Potassium 3.3(L) 3.5 - 5.0 mmol/L [facility] Comment: Please note: ??Patients [...] S Performing Organization Address City/[facility]/ZIP Co de Phone Number [facility] [place] [address] * (ABNORMAL) Ferritin (05/16/2023 4:41 AM EDT) Pathologist [facility] Ferritin 1,813(H) 30 - 400 ng/mL [facility] Comment: Pediatric reference ranges not verified at [facility], interpret with caution. Reference ranges for females greater than 50 years of age approach values for men, i.e., 30-400 ng/mL. Blood 05/16/2023 4:41 AM EDT 05/16/2023 4:54 AM EDT Narrative Resulting Agency Comment Spec In Lab Kristopher Ayoub MD CHEMISTRY ORDERABLES [facility] [place] [address] * (ABNORMAL) PTH (05/16/2023 4:41 AM EDT) [facility] Parathyroid Hormone 120(H) 15 - 65 pg/mL [facility] Blood 05/16/2023 4:41 AM EDT 05/16/2023 4:54 AM EDT Narrative Resulting Agency Comment Spec In Lab Kristopher Ayoub MD CHEMISTRY ORDERABLES [facility] [place] [address] * Vitamin D, 25-Hydroxy (05/16/2023 4:41 AM EDT) [facility] Vitamin D Total 25 OH 33 21 - 100 ng/mL [facility] Vit D Interp Sufficient [facility] Blood 05/16/2023 4:41 AM EDT 05/16/2023 4:54 AM EDT Narrative Resulting Agency Comment Spec In Lab Kristopher Ayoub MD CHEMISTRY ORDERABLES [facility] [place] [address] * (ABNORMAL) Blood Gas Venous ([facility]) (05/16/2023 4:22 AM EDT) pH, Venous 7.41 7.32 - 7.42 [facility] PCO2, Venous 32(L) 41 - 51 mmHg [facility] PO2, Venous 73(H) 25 - 40 mmHg [facility] Bicarbonate, Venous 19.6 mmol/L [facility] Base Excess, Venous -5.1 mmol/L [facility] Hgb Blood Gas 9.7(L) 11.7 - 15.5 g/dL [facility] Oxyhemoglobin, Venous 92.8 % [facility] Carboxyhemoglob in, Venous 0.1 % [facility] Comment: Nonsmokers: 0.5-1.5% COHB Smokers: Variable, but usually less than 10% Toxic: 20-30% COHB Lethal: Greater than 60% COHB Methemoglobin, Venous 0.3 <=1.5 % [facility] Na Whole Blood 130(L) 135 - 145 mmol/L [facility] K Whole Blood 3.7 3.5 - 5.0 mmol/L [facility] Comment: Please note: Patients with WBC >100,000 may have falsely elevated Potassium levels. Contact the Clinical Chemistry Laboratory if there are any questions. ICa Whole Blood 1.15 1.15 - 1.33 mmol/L [facility] Comment: Note: ??Total bilirubin higher than 20 mg/dL may lead to falsely low ionized calcium. CL Whole Blood 95(L) 98 - 107 mmol/L [facility] Gluc Whole Bld 82 65 - 199 mg/dL [facility] Comment:Diabetes: >=200 mg/d L plus symptoms Lactate WB 1.1 0.5 - 2.2 mmol/L [facility] Blood Gas Source Venous [facility] Blood Venous Draw / Unknown 05/16/2023 4:22 AM EDT 05/16/2023 4:31 AM EDT Narrative Resulting Agency Comment Spec In Lab Bonita TOBAR CHEMISTRY ORDERABLES [facility] [place] [address] * (ABNORMAL) Differential, Automated (05/16/2023 4:20 AM EDT) Neutrophil % 84.1 % [facility] Neutrophil Absolute 6.22(H) 1.70 - 6.10 x10(3)/mc L [facility] Lymph % 5.8 % [facility] Lymphocytes Abs 0.4(L) 0.9 - 3.2 x10(3)/mc L [facility] Monocyte % 8.8 % [facility] Monocyte Abs 0.6 0.3 - 0.9 x10(3)/ L [facility] Eos % 0.4 % [facility] Eosinophils Abs 0.0 0.0 - 0.4 x10(3)/mc L [facility] Basophil % 0.0 % [facility] Baso Absolute 0.0 0.0 - 0.1 x10(3)/ L [facility] Immature Gran % 0.90 % [facility] Comment: Immature granulocytes(IG's)percentage and absolute count will include metamyelocytes, myelocytes, and promyelocytes. Blood smears from CBCs yielding IG's will be scanned manually for concordance. If this scan disagrees with the automated IG or if promyelocytes are noted, a manual differential will be performed. Immature Gran Absolute 0.07(H) 0.00 - 0.04 x10(3)/ L [facility] Blood 05/16/2023 4:20 AM EDT 05/16/2023 4:29 AM EDT Narrative Resulting Agency Comment Spec In Lab James Agustin MD HEMATOLOGY ORDER JODIE [facility] [place] [address] * (ABNORMAL) Hemogram (05/16/2023 4:20 AM EDT) White Blood Cell 7.4 4.0 - 9.5 x10(3)/mc L [facility] Red Blood Cell 2.40(L) 4.00 - 5.21 x10(6)/mc L [facility] Hemoglobin 7.8(L) 11.7 - 15.5 g/dL [facility] Hematocrit 22.5(L) 35.7 - 45.8 % [facility] Mean Cell Volume 93.8 82.6 - 94.4 fL [facility] Mean Cell Hemoglobin 32.5(H) 27.1 - 32.0 pg [facility] Mean Cell Hemoglobin Concentration 34.7 31.7 - 35.0 g/dL [facility] Platelet 120(L) 145 - 357 x10(3)/mc L [facility] RDW Standard Deviation 42.9 37.0 - 46.0 fL [facility] RDW coefficient of variation 12.9 11.5 - 14.1 % [facility] Mean Platelet Volume 11.3 7.6 - 12.9 fL [facility] NRBC% auto 0.7 % [facility] NRBC Absolute 0.050(H) 0.000 - 0.000 x10(3)/ L [facility] Blood 05/16/2023 4:20 AM EDT 05/16/2023 4:29 AM EDT Narrative Resulting Agency Comment Spec In Lab James Agustin MD HEMATOLOGY ORDER JODIE [facility] [place] [address] * (ABNORMAL) Basic Metabolic Panel (non-fasting) (05/16/2023 4:20 AM EDT) Glucose 89 65 - 199 mg/dL [facility] Comment:Diabetes: >=200 mg/d L plus symptoms Blood Urea Nitrogen 108(H) 8 - 18 mg/dL [facility] Creatinine 4.74(H) 0.70 - 1.20 mg/dL [facility] Comment:result rechecked-[place] Sodium 132(L) 135 - 145 mmol/L [facility] Potassium 3.9 3.5 - 5.0 mmol/L [facility] Comment: Please note: ??Patients with WBC >100,000 may have falsely elevated Potassium levels. ??For accurate Potassium quantification in these patients send serum separator tube (gold top) for subsequent determinations. ??Contact the Clinical Chemistry Laboratory if there are any questions. Chloride 95(L) 98 - 107 mmol/L [facility] Carbon Dioxide 18(L) 22 - 31 mmol/L [facility] Anion Gap 19(H) 5 - 15 mmol/L [facility] Calcium 9.2 8.5 - 10.5 mg/dL [facility] Est Glomerular Filtration Rate 10(L) >=60 mL/min/1. 73 m?? [facility] Comment: This patient's estimated [...] S Performing Organization Address City/[facility]/ZIP Co de Phone Number [facility] [place] [address] * (ABNORMAL) Iron and TIBC (05/16/2023 4:20 AM EDT) Iron 31 30 - 150 mcg/dL [facility] TIBC 259 250 - 450 mcg/dL [facility] Iron Saturation 12(L) 20 - 50 % [facility] Blood 05/16/2023 4:20 AM EDT 05/16/2023 4:29 AM EDT Narrative Resulting Agency Comment Spec In Lab Kristopher Ayoub MD CHEMISTRY ORDERABLES [facility] [place] [address] * (ABNORMAL) Basic Metabolic Panel (non-fasting) (05/15/2023 12:50 AM EDT) Glucose 101 65 - 199 mg/dL [facility] Comment:Diabetes: >=200 mg/d L plus symptoms Blood Urea Nitrogen 109(H) 8 - 18 mg/dL [facility] Creatinine 5.62(H) 0.70 - 1.20 mg/dL [facility] Comment:result rechecked-KS Sodium 131(L) 135 - 145 mmol/L [facility] Comment:result rechecked-KS Potassium 3.7 3.5 - 5.0 mmol/L [facility] Comment: result rechecked-KS Please note: ??Patients with WBC >100,000 may have falsely elevated Potassium levels. ??For accurate Potassium quantification in these patients send serum separator tube (gold top) for subsequent determinations. ??Contact the Clinical Chemistry Laboratory if there are any questions. Chloride 92(L) 98 - 107 mmol/L [facility] Comment:result rechecked-KS Carbon Dioxide 18(L) 22 - 31 mmol/L [facility] Comment:result rechecked-KS Anion Gap 21(H) 5 - 15 mmol/L [facility] Calcium 8.9 8.5 - 10.5 mg/dL [facility] Est Glomerular Filtration Rate 8(L) >=60 mL/min/1. 73 m?? [facility] Comment: This patient's estimated [...] Lab Alirio Hudson MD CHEMISTRY ORDERABLE S [facility] [place] [address] * (ABNORMAL) Hemogram (05/15/2023 12:50 AM EDT) White Blood Cell 9.1 4.0 - 9.5 x10(3)/mc L [facility] Red Blood Cell 2.19(L) 4.00 - 5.21 x10(6)/mc L [facility] Hemoglobin 7.2(L) 11.7 - 15.5 g/dL [facility] Hematocrit 20.6(L) 35.7 - 45.8 % [facility] Mean Cell Volume 94.1 82.6 - 94.4 fL [facility] Mean Cell Hemoglobin 32.9(H) 27.1 - 32.0 pg [facility] Mean Cell Hemoglobin Concentration 35.0 31.7 - 35.0 g/dL [facility] Platelet 109(L) 145 - 357 x10(3)/mc L [facility] RDW Standard Deviation 43.6 37.0 - 46.0 fL [facility] RDW coefficient of variation 12.9 11.5 - 14.1 % [facility] Mean Platelet Volume 10.4 7.6 - 12.9 fL [facility] NRBC% auto 2.1 % [facility] NRBC Absolute 0.190(H) 0.000 - 0.000 x10(3)/ L [facility] Blood 05/15/2023 12:5 0 AM EDT 05/15/2023 12:52 AM EDT Narrative Resulting Agency Comment Spec In Lab Alirio Hudson MD HEMATOLOGY ORDERABL ES Performing Organization Address City/State/[facility] Co de Phone Number [facility] [place] [address] * (ABNORMAL) BLOOD GAS 2 VENOUS (05/15/2023 12:49 AM EDT) pH, Venous 7.33 7.32 - 7.42 [facility] PCO2, Venous 37(L) 41 - 51 mmHg [facility] PO2, Venous 34 25 - 40 mmHg [facility] Bicarbonate, Venous 19.1 mmol/L [facility] Base Excess, Venous -6.8 mmol/L [facility] Hgb Blood Gas 10.8(L) 11.7 - 15.5 g/dL [facility] Oxyhemoglobin, Venous 58.1 % [facility] Carboxyhemoglob in, Venous 0.3 % [facility] Comment: Nonsmokers: 0.5-1.5% COHB Smokers: Variable, but usually less than 10% Toxic: 20-30% COHB Lethal: Greater than 60% COHB Methemoglobin, Venous 0.6 <=1.5 % [facility] Na Whole Blood 136 135 - 145 mmol/L [facility] K Whole Blood 3.7 3.5 - 5.0 mmol/L [facility] Comment: Please note: Patients with WBC >100,000 may have falsely elevated Potassium levels. Contact the Clinical Chemistry Laboratory if there are any questions. ICa Whole Blood 1.12(L) 1.15 - 1.33 mmol/L [facility] Comment: Note: ??Total bilirubin higher than 20 mg/dL may lead to falsely low ionized calcium. CL Whole Blood 95(L) 98 - 107 mmol/L [facility] Gluc Whole Bld 101 65 - 199 mg/dL [facility] Comment:Diabetes: >=200 mg/d L plus symptoms Lactate WB 1.3 0.5 - 2.2 mmol/L [facility] Flow, Mike 1.0 LPM [facility] Blood Gas Source Venous [facility] Blood 05/15/2023 12:4 9 AM EDT 05/15/2023 12:49 AM EDT Alirio Hudson MD POINT OF CARE TEST ORDERABLES Performing Organization Address City/State/[facility] Co de Phone Number [facility] [place] [address] * US Retroperitoneal Complete (05/14/2023 3:53 PM [...] questions, please contact the health health care coordinator that requested your imaging first. ? Hayden Robledo, Staff Physician Electronically Signed Final Report ?? 05/14/2023 04:39 pm Narrative 05/14/2023 4:39 PM EDT Renal ? (Signed Final 05/14/2023 04:39 pm) PATIENT INFO: ID #: ? [id number] ?: ??55 (67 yrs)(F) Name: ? PURNIMA THACKER ?Visit Date: 05/14/2023 03:44 pm PERFORMED BY: Attending: ?Meena CULP, Hayden Stafford Resident: ? Anand Camejo MD Performed By: ? Consuelo Tello RDMS Referred By: ?ALIRIO HUDSON Location: ? [place] SERVICE(S) PROVIDED: URETRO - Retroperitoneal Complete - [id number] ? [id number] INDICATIONS: [facility] COMPARISON: CT: Abdomen/Pelvis 05/11/23 RIGHT [...] 05/14/2023 04:39 pm) PATIENT INFO: ID #: [id number] : 55 (67 yrs)(F) Name: PURNIMA THACKER Visit Date: 05/14/2023 03:44 pm PERFORMED BY: Attending: Hayden Robledo MD Resident: Anand Camejo MD Performed By: Consuelo Tello RDMS Referred By: ALIRIO HUDSON Location: [place] SERVICE(S) PROVIDED: URETRO - Retroperitoneal Complete - [id number] INDICATIONS: EVANS COMPARISON: CT: Abdomen/Pelvis 05/11/23 RIGHT [...] questions, please contact the health health care coordinator that requested your imaging first. Hayden Robledo, Staff Physician Electronically Signed Final Report 05/14/2023 04:39 pm Alirio Hudson MD IMG US GEN ORDERABL ES * CK (05/14/2023 3:17 PM EDT) Creatine Kinase 123 0 - 160 unit/L [facility] Blood 05/14/2023 3:17 PM EDT 05/14/2023 3:31 PM EDT Narrative Resulting Agency Comment Spec In Lab Alirio Hudson MD CHEMISTRY ORDERABLE S Performing Organization Address City/[facility]/ZIP Co de Phone Number [facility] [place] [address] * (ABNORMAL) Uric acid (05/14/2023 3:17 PM EDT) Uric Acid 14.9(H) 2.5 - 6.5 mg/dL [facility] Blood 05/14/2023 3:17 PM EDT 05/14/2023 3:31 PM EDT Narrative Resulting Agency Comment Spec In Lab Alirio Hudson MD CHEMISTRY ORDERABLE S [facility] [place] [address] * (ABNORMAL) Osmolality (05/14/2023 3:17 PM EDT) Osmolality 311(H) 275 - 295 mOsm/kg [facility] Blood 05/14/2023 3:17 PM EDT 05/14/2023 3:31 PM EDT Narrative Resulting Agency Comment Spec In Lab Alirio Hudson MD CHEMISTRY ORDERABLE S [facility] [place] [address] * (ABNORMAL) Differential, Automated (05/14/2023 1:10 AM EDT) Neutrophil % 87.2 % [facility] Neutrophil Absolute 9.74(H) 1.70 - 6.10 x10(3)/mc L [facility] Lymph % 3.9 % [facility] Lymphocytes Abs 0.4(L) 0.9 - 3.2 x10(3)/mc L [facility] Monocyte % 7.9 % [facility] Monocyte Abs 0.9 0.3 - 0.9 x10(3)/mc L [facility] Eos % 0.0 % [facility] Eosinophils Abs 0.0 0.0 - 0.4 x10(3)/mc L [facility] Basophil % 0.1 % [facility] Baso Absolute 0.0 0.0 - 0.1 x10(3)/mc L [facility] Immature Gran % 0.90 % [facility] Comment: Immature granulocytes(IG's)percentage and absolute count will include metamyelocytes, myelocytes, and promyelocytes. Blood smears from CBCs yielding IG's will be scanned manually for concordance. If this scan disagrees with the automated IG or if promyelocytes are noted, a manual differential will be performed. Immature Gran Absolute 0.10(H) 0.00 - 0.04 x10(3)/mc L [facility] Blood 05/14/2023 1:10 AM EDT 05/14/2023 1:24 AM EDT Narrative Resulting Agency Comment Spec In Lab Bonita TOBAR HEMATOLOGY ORDERABLE S [facility] [place] [address] * (ABNORMAL) Hemogram (05/14/2023 1:10 AM EDT) White Blood Cell 11.2(H) 4.0 - 9.5 x10(3)/mc L [facility] Red Blood Cell 2.19(L) 4.00 - 5.21 x10(6)/mc L [facility] Hemoglobin 7.2(L) 11.7 - 15.5 g/dL [facility] Hematocrit 20.3(L) 35.7 - 45.8 % [facility] Mean Cell Volume 92.7 82.6 - 94.4 fL [facility] Mean Cell Hemoglobin 32.9(H) 27.1 - 32.0 pg [facility] Mean Cell Hemoglobin Concentration 35.5(H) 31.7 - 35.0 g/dL [facility] Platelet 112(L) 145 - 357 x10(3)/mc L [facility] RDW Standard Deviation 41.4 37.0 - 46.0 fL [facility] RDW coefficient of variation 12.5 11.5 - 14.1 % [facility] Mean Platelet Volume 10.4 7.6 - 12.9 fL [facility] NRBC% auto 1.5 % [facility] NRBC Absolute 0.170(H) 0.000 - 0.000 x10(3)/mc L [facility] Blood 05/14/2023 1:10 AM EDT 05/14/2023 1:24 AM EDT Narrative Resulting Agency Comment Spec In Lab Bonita TOBAR HEMATOLOGY ORDERABLE S Performing Organization Address City/State/[facility] Co de Phone Number [facility] [place] [address] * (ABNORMAL) Comprehensive metabolic panel (non-fasting) (05/14/2023 1:10 AM EDT) Glucose 120 65 - 199 mg/dL [facility] Comment:Diabetes: >=200 mg/d L plus symptoms Blood Urea Nitrogen 98(H) 8 - 18 mg/dL [facility] Creatinine 4.80(H) 0.70 - 1.20 mg/dL [facility] Comment:result rechecked-ssc Sodium 132(L) 135 - 145 mmol/L [facility] Potassium 4.1 3.5 - 5.0 mmol/L [facility] Comment: Please note: ??Patients with WBC >100,000 may have falsely elevated Potassium levels. ??For accurate Potassium quantification in these patients send serum separator tube (gold top) for subsequent determinations. ??Contact the Clinical Chemistry Laboratory if there are any questions. Chloride 94(L) 98 - 107 mmol/L [facility] Carbon Dioxide 18(L) 22 - 31 mmol/L [facility] Anion Gap 20(H) 5 - 15 mmol/L [facility] Calcium 8.5 8.5 - 10.5 mg/dL [facility] Protein, Total 5.8(L) 6.1 - 8.0 g/dL [facility] Albumin 3.6 3.2 - 5.2 g/dL [facility] Aspartate Aminotransferase 319(H) 0 - 30 unit/L [facility] Alanine Aminotransferase 437(H) 0 - 30 unit/L [facility] Alkaline Phosphatase 86 35 - 105 unit/L [facility] Bilirubin, Total 0.4 0.2 - 1.3 mg/dL [facility] Est Glomerular Filtration Rate 9(L) >=60 mL/min/1. 73 m?? [facility] Comment: This patient's estimated [...] Lab Alirio Hudson MD CHEMISTRY ORDERABLE S [facility] [place] [address] * APTT (05/13/2023 10:15 AM EDT) Partial [...] HEMATOLOGY ORDERABL ES Performing Organization Address [facility] de Phone Number [facility] [place] [address] * (ABNORMAL) Prothrombin Time (05/13/2023 10:15 AM EDT) Prothrombin Time 14.6(H) 9.4 - 12.5 sec [facility] International Normalization Ratio 1.3 [facility] Comment: An INR <2.0 [...] ORDERABL ES Performing Organization Address [facility] de Phone Number [facility] [place] [address] * EKG 12 Lead (05/13/2023 9:22 AM EDT) Ventricular rate 92 BPM MUSE SYSTEM Atrial Rate 92 BPM MUSE SYSTEM P-R Interval 140 ms MUSE SYSTEM QRS Duration 104 ms MUSE SYSTEM Q-T Interval 384 ms MUSE SYSTEM QTC Calculated (Bezet) 474 ms MUSE SYSTEM Calculated P [place] 33 degrees MUSE SYSTEM Calculated R [place] 41 degrees MUSE SYSTEM Calculated T [place] -35 degrees MUSE SYSTEM INTERPRETATION Sinus rhythm with frequent Premature ventricular complexes Septal infarct , age undetermined ST & T wave abnormality, consider lateral ischemia Abnormal ECG When compared with ECG of 12-MAY-2023 10:10, Premature ventricular complexes are now Present I personally reviewed the tracing and edited the fellows interpretation Confirmed by fellow MD Anitha, Carissa ([id number]) on 05/13/2023 3:25:30 PM Confirmed by Maxx Best ([id number]) on 05/13/2023 8:30:56 PM MUSE SYSTEM 05/13/2023 9:22 AM EDT 05/13/2023 8:30 PM EDT Alirio Hudson MD ECG ORDERABLES MUSE SYSTEM * (ABNORMAL) Differential, Automated (05/13/2023 1:15 AM EDT) Neutrophil % 88.1 % [facility] Neutrophil Absolute 7.62(H) 1.70 - 6.10 x10(3)/mc L [facility] Lymph % 3.1 % [facility] Lymphocytes Abs 0.3(L) 0.9 - 3.2 x10(3)/mc L [facility] Monocyte % 7.9 % [facility] Monocyte Abs 0.7 0.3 - 0.9 x10(3)/mc L [facility] Eos % 0.0 % [facility] Eosinophils Abs 0.0 0.0 - 0.4 x10(3)/mc L [facility] Basophil % 0.1 % [facility] Baso Absolute 0.0 0.0 - 0.1 x10(3)/mc L [facility] Immature Gran % 0.80 % [facility] Comment: Immature granulocytes(IG's)percentage and absolute count will include metamyelocytes, myelocytes, and promyelocytes. Blood smears from CBCs yielding IG's will be scanned manually for concordance. If this scan disagrees with the automated IG or if promyelocytes are noted, a manual differential will be performed. Immature Gran Absolute 0.07(H) 0.00 - 0.04 x10(3)/mc L [facility] Blood 05/13/2023 1:15 AM EDT 05/13/2023 1:29 AM EDT Narrative Resulting Agency Comment Spec In Lab Lorri TOBAR HEMATOLOGY ORDERABLE S [facility] [place] [address] * (ABNORMAL) Hemogram (05/13/2023 1:15 AM EDT) White Blood Cell 8.6 4.0 - 9.5 x10(3)/mc L [facility] Red Blood Cell 2.37(L) 4.00 - 5.21 x10(6)/mc L [facility] Hemoglobin 7.8(L) 11.7 - 15.5 g/dL [facility] Hematocrit 22.2(L) 35.7 - 45.8 % [facility] Mean Cell Volume 93.7 82.6 - 94.4 fL [facility] Mean Cell Hemoglobin 32.9(H) 27.1 - 32.0 pg [facility] Mean Cell Hemoglobin Concentration 35.1(H) 31.7 - 35.0 g/dL [facility] Platelet 130(L) 145 - 357 x10(3)/mc L [facility] RDW Standard Deviation 41.7 37.0 - 46.0 fL [facility] RDW coefficient of variation 12.5 11.5 - 14.1 % [facility] Mean Platelet Volume 10.2 7.6 - 12.9 fL [facility] NRBC% auto 0.5 % [facility] NRBC Absolute 0.040(H) 0.000 - 0.000 x10(3)/mc L [facility] Blood 05/13/2023 1:15 AM EDT 05/13/2023 1:29 AM EDT Narrative Resulting Agency Comment Spec In Lab Lorri TOBAR HEMATOLOGY ORDERABLE S [facility] [place] [address] * (ABNORMAL) Hepatic Function Panel (05/13/2023 1:15 AM EDT) Protein, Total 5.5(L) 6.1 - 8.0 g/dL [facility] Albumin 3.0(L) 3.2 - 5.2 g/dL [facility] Aspartate Aminotransferase 792(H) 0 - 30 unit/L [facility] Alanine Aminotransferase 903(H) 0 - 30 unit/L [facility] Alkaline Phosphatase 85 35 - 105 unit/L [facility] Bilirubin, Total 0.5 0.2 - 1.3 mg/dL [facility] Bilirubin, Direct 0.3 0.0 - 0.3 mg/dL [facility] Blood 05/13/2023 1:15 AM EDT 05/13/2023 1:29 AM EDT Narrative Resulting Agency Comment Spec In Lab Alirio Hudson MD CHEMISTRY ORDERABLE S Performing Organization Address City/State/[facility] Co de Phone Number [facility] [place] [address] * (ABNORMAL) Basic Metabolic Panel (non-fasting) (05/13/2023 1:15 AM EDT) Glucose 107 65 - 199 mg/dL [facility] Comment:Diabetes: >=200 mg/d L plus symptoms Blood Urea Nitrogen 82(H) 8 - 18 mg/dL [facility] Creatinine 3.15(H) 0.70 - 1.20 mg/dL [facility] Comment:result rechecked-OG Sodium 132(L) 135 - 145 mmol/L [facility] Potassium 3.8 3.5 - 5.0 mmol/L [facility] Comment: Please note: ??Patients with WBC >100,000 may have falsely elevated Potassium levels. ??For accurate Potassium quantification in these patients send serum separator tube (gold top) for subsequent determinations. ??Contact the Clinical Chemistry Laboratory if there are any questions. Chloride 95(L) 98 - 107 mmol/L [facility] Carbon Dioxide 20(L) 22 - 31 mmol/L [facility] Anion Gap 17(H) 5 - 15 mmol/L [facility] Calcium 8.3(L) 8.5 - 10.5 mg/dL [facility] Est Glomerular Filtration Rate 16(L) >=60 mL/min/1. 73 m?? [facility] Comment: This patient's estimated [...] Address City/State/[facility] Co de Phone Number [facility] [place] [address] * (ABNORMAL) BLOOD GAS 2 ARTERIAL (05/12/2023 3:57 PM EDT) pH, Arterial 7.39 7.35 - 7.45 [facility] PCO2, Arterial 33(L) 35 - 45 mmHg [facility] PO2, Arterial 101 85 - 104 mmHg [facility] Bicarbonate, Arterial 19.5(L) 20.0 - 26.0 mmol/L [facility] Base Excess, Arterial -5.5(L) -3.0 - 3.0 mmol/L [facility] Hgb Blood Gas 9.8(L) 11.7 - 15.5 g/dL [facility] Oxyhemoglobin, Arterial 95.2 94.0 - 97.0 % [facility] Carboxyhemoglob in, Arterial 0.2 % [facility] Comment: Nonsmokers: 0.5-1.5% COHB Smokers: Variable, but usually less than 10% Toxic: 20-30% COHB Lethal: Greater than 60% COHB Methemoglobin, Arterial 0.8 <=1.5 % [facility] Na Whole Blood 129(L) 135 - 145 mmol/L [facility] K Whole Blood 3.8 3.5 - 5.0 mmol/L [facility] Comment: Please note: Patients with WBC >100,000 may have falsely elevated Potassium levels. Contact the Clinical Chemistry Laboratory if there are any questions. ICa Whole Blood 1.05(L) 1.15 - 1.33 mmol/L [facility] Comment: Note: ??Total bilirubin higher than 20 mg/dL may lead to falsely low ionized calcium. CL Whole Blood 96(L) 98 - 107 mmol/L [facility] Gluc Whole Bld 178 65 - 199 mg/dL [facility] Comment:Diabetes: >=200 mg/d L plus symptoms. Lactate WB 1.5 0.5 - 2.2 mmol/L [facility] FIO2 Art 40 % [facility] PF Ratio Art 252 [facility] Blood 05/12/2023 3:57 PM EDT 05/12/2023 3:57 PM EDT Alirio Hudson MD POINT OF CARE TEST ORDERABLES Performing Organization Address [facility] Co de Phone Number [facility] [place] [address] * (ABNORMAL) Coox2 (05/12/2023 2:25 PM EDT) pO2, Coox 37 mmHg [facility] Hgb Blood Gas 9.5(L) 11.7 - 15.5 g/dL [facility] Oxyhemoglobin, Coox 59.9 % [facility] Carboxyhemoglo bin, Coox 0.3 % [facility] Comment: Nonsmokers: 0.5-1.5% COHB Smokers: Variable, but usually less than 10% Toxic: 20-30% COHB Lethal: Greater than 60% COHB Methemoglobin, Coox 0.7 <=1.5 % [facility] Source Coox Mixed Venous [facility] Blood 05/12/2023 2:25 PM EDT 05/12/2023 2:25 PM EDT Alirio Hudson MD POINT OF CARE TEST ORDERABLES Performing Organization Address [facility] Co de Phone Number [facility] [place] [address] * (ABNORMAL) BLOOD GAS 2 ARTERIAL (05/12/2023 2:23 PM EDT) pH, Arterial 7.37 7.35 - 7.45 [facility] PCO2, Arterial 36 35 - 45 mmHg [facility] PO2, Arterial 102 85 - 104 mmHg [facility] Bicarbonate, Arterial 20.4 20.0 - 26.0 mmol/L [facility] Base Excess, Arterial -4.8(L) -3.0 - 3.0 mmol/L [facility] Hgb Blood Gas 12.7 11.7 - 15.5 g/dL [facility] Oxyhemoglobin, Arterial 95.4 94.0 - 97.0 % [facility] Carboxyhemoglob in, Arterial 0.3 % [facility] Comment: Nonsmokers: 0.5-1.5% COHB Smokers: Variable, but usually less than 10% Toxic: 20-30% COHB Lethal: Greater than 60% COHB Methemoglobin, Arterial 0.7 <=1.5 % [facility] Na Whole Blood 129(L) 135 - 145 mmol/L [facility] K Whole Blood 3.7 3.5 - 5.0 mmol/L [facility] Comment: Please note: Patients with WBC >100,000 may have falsely elevated Potassium levels. Contact the Clinical Chemistry Laboratory if there are any questions. ICa Whole Blood 1.05(L) 1.15 - 1.33 mmol/L [facility] Comment: Note: ??Total bilirubin higher than 20 mg/dL may lead to falsely low ionized calcium. CL Whole Blood 95(L) 98 - 107 mmol/L [facility] Gluc Whole Bld 168 65 - 199 mg/dL [facility] Comment:Diabetes: >=200 mg/d L plus symptoms. Lactate WB 1.8 0.5 - 2.2 mmol/L [facility] FIO2 Art 40 % [facility] PF Ratio Art 255 [facility] Blood 05/12/2023 2:23 PM EDT 05/12/2023 2:23 PM EDT Alirio Hudson MD POINT OF CARE TEST ORDERABLES [facility] [place] [address] * (ABNORMAL) Troponin (05/12/2023 2:05 PM EDT) Troponin-T, High Sensitivity 1,022(H) <=14 ng/L [facility] Comment: This patient's troponin [...] can be found in the [facility] Test Catalog Troponin - [facility] Test Catalog Reference: Fourth Lenora Definition of Myocardial Infarction. Journal of the [place] [employer] 2018;72:1445-7289 Blood 05/12/2023 2:05 PM EDT 05/12/2023 2:14 PM EDT Narrative Resulting Agency Comment Spec In Lab Alirio Hudson MD CHEMISTRY ORDERABLE S [facility] [place] [address] * (ABNORMAL) Hemoglobin (05/12/2023 2:05 PM EDT) Hemoglobin 8.5(L) 11.7 - 15.5 g/dL [facility] Blood 05/12/2023 2:05 PM EDT 05/12/2023 2:14 PM EDT Narrative Resulting Agency Comment Spec In Lab Alirio Hudson MD HEMATOLOGY ORDERABL ES Performing Organization Address [facility] Co de Phone Number [facility] [place] [address] * Potassium (05/12/2023 2:05 PM EDT) Potassium 3.9 3.5 - 5.0 mmol/L [facility] Comment: Please note: ??Patients [...] CHEMISTRY ORDERABLE S Performing Organization Address [facility] Co de Phone Number [facility] [place] [address] * (ABNORMAL) BLOOD GAS 2 ARTERIAL (05/12/2023 11:05 AM EDT) pH, Arterial 7.34(L) 7.35 - 7.45 [facility] PCO2, Arterial 42 35 - 45 mmHg [facility] PO2, Arterial 73(L) 85 - 104 mmHg [facility] Bicarbonate, Arterial 22.1 20.0 - 26.0 mmol/L [facility] Base Excess, Arterial -3.6(L) -3.0 - 3.0 mmol/L [facility] Hgb Blood Gas 9.3(L) 11.7 - 15.5 g/dL [facility] Oxyhemoglobin, Arterial 89.3(L) 94.0 - 97.0 % [facility] Carboxyhemoglob in, Arterial 0.2 % [facility] Comment: Nonsmokers: 0.5-1.5% COHB Smokers: Variable, but usually less than 10% Toxic: 20-30% COHB Lethal: Greater than 60% COHB Methemoglobin, Arterial 0.9 <=1.5 % [facility] Na Whole Blood 131(L) 135 - 145 mmol/L [facility] K Whole Blood 3.8 3.5 - 5.0 mmol/L [facility] Comment: Please note: Patients with WBC >100,000 may have falsely elevated Potassium levels. Contact the Clinical Chemistry Laboratory if there are any questions. ICa Whole Blood 1.04(L) 1.15 - 1.33 mmol/L [facility] Comment: Note: ??Total bilirubin higher than 20 mg/dL may lead to falsely low ionized calcium. CL Whole Blood 96(L) 98 - 107 mmol/L [facility] Gluc Whole Bld 152 65 - 199 mg/dL [facility] Comment:Diabetes: >=200 mg/d L plus symptoms. Lactate WB 2.8(H) 0.5 - 2.2 mmol/L [facility] FIO2 Art 40 % [facility] PF Ratio Art 182 [facility] Blood 05/12/2023 11:0 5 AM EDT 05/12/2023 11:05 AM EDT Alirio Hudson MD POINT OF CARE TEST ORDERABLES [facility] [place] [address] * (ABNORMAL) BLOOD GAS 2 ARTERIAL (05/12/2023 10:14 AM EDT) pH, Arterial 7.18(Criti gabrielle) 7.35 - 7.45 [facility] Comment:Noted by reed or wind instrument repairer. PCO2, Arterial 45 35 - 45 mmHg [facility] PO2, Arterial 186(H) 85 - 104 mmHg [facility] Bicarbonate, Arterial 16.2(L) 20.0 - 26.0 mmol/L [facility] Base Excess, Arterial -12.2(L) -3.0 - 3.0 mmol/L [facility] Hgb Blood Gas 10.0(L) 11.7 - 15.5 g/dL [facility] Oxyhemoglobin, Arterial 97.0 94.0 - 97.0 % [facility] Carboxyhemoglob in, Arterial 0.2 % [facility] Comment: Nonsmokers: 0.5-1.5% COHB Smokers: Variable, but usually less than 10% Toxic: 20-30% COHB Lethal: Greater than 60% COHB Methemoglobin, Arterial 0.9 <=1.5 % [facility] Na Whole Blood 129(L) 135 - 145 mmol/L [facility] K Whole Blood 3.6 3.5 - 5.0 mmol/L [facility] Comment: Please note: Patients with WBC >100,000 may have falsely elevated Potassium levels. Contact the Clinical Chemistry Laboratory if there are any questions. ICa Whole Blood 1.10(L) 1.15 - 1.33 mmol/L [facility] Comment: Note: ??Total bilirubin higher than 20 mg/dL may lead to falsely low ionized calcium. CL Whole Blood 97(L) 98 - 107 mmol/L [facility] Gluc Whole Bld 161 65 - 199 mg/dL [facility] Comment:Diabetes: >=200 mg/d L plus symptoms. Lactate WB 3.3(H) 0.5 - 2.2 mmol/L [facility] FIO2 Art 100 % [facility] PF Ratio Art 186 [facility] Blood 05/12/2023 10:1 4 AM EDT 05/12/2023 10:14 AM EDT Alirio Hudson MD POINT OF CARE TEST ORDERABLES Performing Organization Address City/State/[facility] Co de Phone Number [facility] [place] [address] * EKG 12 Lead (05/12/2023 10:10 AM EDT) Ventricular rate 116 BPM MUSE SYSTEM Atrial Rate 116 BPM MUSE SYSTEM P-R Interval 158 ms MUSE SYSTEM QRS Duration 114 ms MUSE SYSTEM Q-T Interval 348 ms MUSE SYSTEM QTC Calculated (Bezet) 483 ms MUSE SYSTEM Calculated P [place] 37 degrees MUSE SYSTEM Calculated R [place] 31 degrees MUSE SYSTEM Calculated T [place] -138 degrees MUSE SYSTEM INTERPRETATION Sinus tachycardia with intermittent aberrant ventricular conduction Possible Left atrial enlargement Incomplete left bundle block Left ventricular hypertrophy with repolarization abnormality ( Sokolow-Orozco , Summit product ) ST & T wave abnormality in Inferolateral leads Abnormal ECG When compared with ECG of 10-MAY-2023 13:16, ST & T wave abnormality is more pronounced in inferolateral leads I personally reviewed the tracing and edited the fellows interpretation Confirmed by fellow MD Anuja, Jim ([id number]) on 05/12/2023 1:04:20 PM Confirmed by MD Mono, Eleni ([id number]) on 05/12/2023 9:28:34 PM MUSE SYSTEM 05/12/2023 [...] questions please contact the health health care coordinator that requested your imaging first. ? Electronically signed by: Chyna Johnson MD, [facility] ??([phone]), at 05/12/2023 10:08 AM Narrative 05/12/2023 10:08 AM EDT EXAMINATION: XR CHEST ONE VIEW CLINICAL HISTORY: Post TAVR TECHNIQUE: 1 view of the chest COMPARISON: Chest radiograph from earlier today FINDINGS: Interval placement of endotracheal tube with tip terminating 2 cm above the shira. Interval placement of enteric tube projecting along the expected course of the esophagus and outside the jbqqx-zv-dofi. Interval retraction of right IJ approach pulmonary [...] expected course ofthe esophagus and outside the ztszj-ln-jwgm. Interval retraction of right IJ approach pulmonary [...] have questions please contactthe health health care coordinator that requested your imaging first. Electronically signed by: Chyna Johnson MD, [facility]([phone]), at 05/12/2023 10:08 AM Alirio Hudson MD [...] 1955 ? Height: 154 cm ? Account: [id number] Age: 67 yrs ? Weight: 75 kg Gender: Female ?BSA: 1.7 m2 Ordering Physician: RADHA HOLLINS Referring Physician: RADHA HOLLINS Performed By: Dilma Bee RDCS Reason For Study: Guidance for TAVR procedure Exam Location: [facility]. Interpretation Summary PRE TAVR: There [...] mL/m2. POST TAVR: Normal function of the ekewg-yc-purgy prosthesis. See below for hemodynamic parameters. Slight improvement in left and right ventricular systolic function. LVEF now 20-25%. No pericardial effusion. See report for additional findings. Procedure Limited - 81615. Doppler - 14493. Color Doppler - 64926. Left Ventricle Left ventricle is of normal [...] 307:33 AMBP: 96/63 mmHg Patient Location: [address] : 1955 Height: 154 cm Account: [id number] Age: 67 yrs Weight: 75 kg Gender: Female BSA: 1.7 m2 Ordering Physician: RADHA HOLLINS Referring Physician: RADHA HOLLINS Performed By: Dilma Bee RDCS Reason For Study: Guidance for TAVR procedure Exam Location: [facility]. Interpretation Summary PRE TAVR: There [...] 28mL/m2. POST TAVR: Normal function of the rgtlx-oe-atbpn prosthesis. See belowfor hemodynamic parameters. Slight improvement in left and right ventricularsystolic function. LVEF now 20-25%. No pericardial effusion. See report for additional findings. Procedure Limited - 40267. Doppler - 56404. Color Doppler - 50528. Left Ventricle Left ventricle is of normal [...] Modality Other Narrative 05/12/2023 2:37 PM EDT ?[facility] ? Cardiac Catheterization/Intervention Report ? Patient Name: Kirstie, Purnima M. ? Procedure Date: 05/12/2023 ? A #: [id number] ? Primary Physician: Antelmo Sharma ? Case #: [id number] ? File Name: [id number] ? Catheterization Order Number: [id number] ? [facility] ? Final Report [place], [place] ? Patient Name: ? Purnima Thacker ? ID#: ?[id number] ? : ?1955 ? Procedure Date: ? May 12, 2023 ? Case #: ? [id number] ? Room: ? 6 ? Case Physicians: ?Antelmo Sharma M.D. ?Start: ?08:03 ?Alirio Hudson M.D. ?Admission: ??05/08/2023 ?Lynda Mcgowan M.D. ? Discharge: ??05/22/2023 ?Fellow: ? Kristied Adair Tejeda ? Referring Physician: ??Mario Alberto Chin M.D. ? Procedures: ?* Coronary Angiography ?* Left Heart Catheterization ?* Coronary Stent Insertion ?* Transcatheter Aortic Valve Replacement ?* Vascular Closure Device Deployment ?* Temporary Pacemaker Insertion In Coal Feeder Operator ?* Endotracheal Intubation By Non-Cath Physician [...] was designated as ASA Class IV. The [facility] clinical ?frailty scale is 4: [...] ??A premounted 4.00 x 30 mm Nils Highland (MINNA) was ? deployed with a maximum [...] calculated STS risk score was 30.1%. A fqmym-rh-lpqmp ?procedure was performed on the pre-existing bioprosthetic stented ?prosthesis. The priority of the owhvu-fu-iufrv procedure was Elective. ?The procedure was performed [...] Lai 3 Ultra RESILIA 23 mm THV (s/g=[id number]) transcatheter ?valve was inserted using standard technique. [...] to nor was it given in the ?process laboratory specialist. ?Recommended anti-platelet/anti-thrombotic regimen: ?Continue aspirin 81 mg daily for indefinitely. ?These recommendations are made at the time of the intervention. Patient ?and provider preferences or a changing clinical situation may require ?modification of this regimen. Consult [facility] Interventional Cardiology for [...] regimen. ? Comments: ?Successful right transfemoral TAVR Xlkxh-sh-Ytybv with a 23 mm Lai 3 ?THV. [...] insertion-coronary, access site angiography, ?temporary pacemaker in process laboratory specialist, intubation-non cath physician, vascular ?closure device, transthoracic echo ??and TAVR. Dr. Alirio Hudson M.D. ?performed the left heart catheterization, access site angiography, ?temporary pacemaker in process laboratory specialist, vascular closure device, transthoracic ?echo , TAVR and CPR during cath. Dr. Lynda Mcgowan M.D. performed the ABG, ?anesthesia and intubation-non cath physician. ? Antelmo Sharma M.D. ? Electronically Signed by: Antelmo Sharma M.D. ? Report Finalized: 05/12/2023 ??14:31 ? Report Last Ammended: 07/01/2023 ??11:30 ? Procedure Note Antelmo Sharma MD - 07/01/2023 [facility] Cardiac Catheterization/Intervention Report Patient Name: Purnima Thacker Procedure Date: 05/12/2023 A #: [id number] Primary Physician: Antelmo Sharma Case #: [id number] File Name: [id number] Catheterization Order Number: [id number] [facility] FinalReport [place], [place] Patient Name: Purnima Thacker ID#:[id number] :1955 Procedure Date: May 12, 2023 Case #: [id number] Room: 6 Case Physicians: Antelmo Sharma M.D. Start: 08:03 Alirio Hudson M.D. Admission:05/08/2023 Lynda Mcgowan M.D. Discharge:05/22/2023 Fellow: Rebekah Tejeda M.D. Referring Physician: Mario Alberto Chin M.D. Procedures: * Coronary Angiography * Left Heart Catheterization * Coronary Stent Insertion * Transcatheter Aortic Valve Replacement * Vascular Closure Device Deployment * Temporary Pacemaker Insertion In Coal Feeder Operator * Endotracheal Intubation By Non-Cath Physician [...] guide. A premounted 4.00 x 30 mm [place] Highland (MINNA) was deployed with a maximum inflation [...] calculated STS risk score was 30.1%. A vocbq-sm-jktor procedure was performed on the pre-existing bioprosthetic stented prosthesis. The priority of the ubsgo-in-yhllq procedure wasElective. The procedure was performed under Moderate sedation performed byLynda Mcgowan M.D. (see anesthesia report for additional details). Alirio Hudson M.D. participated in the case (see Cardiac Surgery reportfor additional details). The TAVR sheath was a 14 Fr Corona eSheath Introducer and theaccess site was femoral. Rapid ventricular pacing was performed. An Corona Lai 3 Ultra RESILIA 23 mm THV (s/s=[id number])transcatheter valve was inserted using standard technique. The [...] prior to nor was it given inthe process laboratory specialist. Recommended anti-platelet/anti-thrombotic regimen: Continue aspirin 81 mg daily for indefinitely. These recommendations are made at the time of the intervention.Patient and provider preferences or a changing clinical situation mayrequire modification of this regimen. Consult [facility] Interventional Cardiologyfor questions. [...] this regimen. Comments: Successful right transfemoral TAVR Urwvt-vd-Buoda with a 23 mmSapien 3 THV. We [...] insertion-coronary, access site angiography, temporary pacemaker in process laboratory specialist, intubation-non cath physician,vascular closure device, transthoracic echo and TAVR. Dr. Alirio Hudson M.D. performed the left heart catheterization, access site angiography, temporary pacemaker in process laboratory specialist, vascular closure device,transthoracic echo , TAVR and [...] pH, POC 7.20(Crit ical) 7.35 - 7.45 [facility] Comment:Critical value OK, C C Lab. pCO2, POC 42 35 - 45 mmHg [facility] pO2, POC 260(H) 85 - 104 mmHg [facility] Base Excess, POC -11.0(L) -3.0 - 3.0 mmol/L [facility] Bicarbonate, POC 16.7(L) 20.0 - 26.0 mmol/L [facility] Sodium, POC 129(L) 135 - 145 mmol/L [facility] POC Potassium 3.8 3.5 - 5.0 mmol/L [facility] Ionized Calcium, POC 1.12(L) 1.15 - 1.33 mmol/L [facility] POC Hematocrit 23.0(L) 34.0 - 45.0 % [facility] POC Calc Hgb 7.8(L) 11.2 - 15.7 g/dL [facility] Comment:The calculation of h emoglobin from hematocrit assumes a normal MCHC. POC Bgas Loc CC Lab [facility] Blood 05/12/2023 8:50 AM EDT 05/13/2023 12:00 PM EDT Alirio Hudson MD CHEMISTRY ORDERABLE S [facility] [place] [address] * (ABNORMAL) Point of Care Blood Gas Historical (05/12/2023 8:10 AM EDT) pH, POC 7.27(Crit ical) 7.35 - 7.45 [facility] Comment:Critical value OK, C C Lab. pCO2, POC 37 35 - 45 mmHg [facility] pO2, POC 29(Critic al) 85 - 104 mmHg [facility] Comment:Critical value OK, C C Lab. Base Excess, POC -10.0(L) -3.0 - 3.0 mmol/L [facility] Bicarbonate, POC 16.7(L) 20.0 - 26.0 mmol/L [facility] Sodium, POC 123(L) 135 - 145 mmol/L [facility] POC Potassium 4.0 3.5 - 5.0 mmol/L [facility] Ionized Calcium, POC 1.12(L) 1.15 - 1.33 mmol/L [facility] POC Hematocrit 27.0(L) 34.0 - 45.0 % [facility] POC Calc Hgb 9.2(L) 11.2 - 15.7 g/dL [facility] Comment:The calculation of h emoglobin from hematocrit assumes a normal MCHC. POC Bgas Loc CC Lab [facility] Blood 05/12/2023 8:10 AM EDT 05/13/2023 12:00 PM EDT Alirio Hudson MD CHEMISTRY ORDERABLE S [facility] [place] [address] * (ABNORMAL) Lactate, whole blood, send to lab ([facility]) (05/12/2023 7:00 AM EDT) Lactate WB 2.4(H) 0.5 - 2.2 mmol/L [facility] Blood 05/12/2023 7:00 AM EDT 05/12/2023 7:09 AM EDT Narrative Resulting Agency Comment Spec In Lab Radha Hollins MD CHEMISTRY ORDERABL ES Performing Organization Address City/[facility]/ZIP Co de Phone Number [facility] [place] [address] * (ABNORMAL) Comprehensive metabolic panel (non-fasting) (05/12/2023 6:00 AM EDT) Glucose 167 65 - 199 mg/dL [facility] Comment:Diabetes: >=200 mg/d L plus symptoms Blood Urea Nitrogen 67(H) 8 - 18 mg/dL [facility] Creatinine 2.01(H) 0.70 - 1.20 mg/dL [facility] Sodium 131(L) 135 - 145 mmol/L [facility] Potassium 4.3 3.5 - 5.0 mmol/L [facility] Comment: Please note: ??Patients with WBC >100,000 may have falsely elevated Potassium levels. ??For accurate Potassium quantification in these patients send serum separator tube (gold top) for subsequent determinations. ??Contact the Clinical Chemistry Laboratory if there are any questions. Chloride 97(L) 98 - 107 mmol/L [facility] Carbon Dioxide 14(L) 22 - 31 mmol/L [facility] Anion Gap 20(H) 5 - 15 mmol/L [facility] Calcium 8.6 8.5 - 10.5 mg/dL [facility] Protein, Total 6.3 6.1 - 8.0 g/dL [facility] Albumin 3.5 3.2 - 5.2 g/dL [facility] Aspartate Aminotransferase 1,435(H) 0 - 30 unit/L [facility] Alanine Aminotransferase 1,174(H) 0 - 30 unit/L [facility] Alkaline Phosphatase 100 35 - 105 unit/L [facility] Bilirubin, Total 0.9 0.2 - 1.3 mg/dL [facility] Est Glomerular Filtration Rate 27(L) >=60 mL/min/1. 73 m?? [facility] Comment: This patient's estimated [...] CHEMISTRY ORDERABL ES Performing Organization Address City/State/[facility] Co de Phone Number [facility] [place] [address] * (ABNORMAL) Coox2 (05/12/2023 5:08 AM EDT) pO2, Coox 24 mmHg [facility] Hgb Blood Gas 10.4(L) 11.7 - 15.5 g/dL [facility] Oxyhemoglobin, Coox 30.7 % [facility] Carboxyhemoglo bin, Coox 0.3 % [facility] Comment: Nonsmokers: 0.5-1.5% COHB Smokers: Variable, but usually less than 10% Toxic: 20-30% COHB Lethal: Greater than 60% COHB Methemoglobin, Coox 0.8 <=1.5 % [facility] Source Coox Mixed Venous [facility] Blood 05/12/2023 5:08 AM EDT 05/12/2023 5:08 AM EDT Radha Hollins MD POINT OF CARE TEST ORDERABLES Performing Organization Address [facility] Co de Phone Number [facility] [place] [address] * (ABNORMAL) Coox2 (05/12/2023 3:21 AM EDT) pO2, Coox 25 mmHg [facility] Hgb Blood Gas 10.8(L) 11.7 - 15.5 g/dL [facility] Oxyhemoglobin, Coox 32.7 % [facility] Carboxyhemoglo bin, Coox 0.3 % [facility] Comment: Nonsmokers: 0.5-1.5% COHB Smokers: Variable, but usually less than 10% Toxic: 20-30% COHB Lethal: Greater than 60% COHB Methemoglobin, Coox 0.7 <=1.5 % [facility] Source Coox Mixed Venous [facility] Blood 05/12/2023 3:21 AM EDT 05/12/2023 3:21 AM EDT Radha Hollins MD POINT OF CARE TEST ORDERABLES Performing Organization Address [facility] de Phone Number [facility] [place] [address] * (ABNORMAL) BLOOD GAS 2 ARTERIAL (05/12/2023 3:18 AM EDT) pH, Arterial 7.34(L) 7.35 - 7.45 [facility] PCO2, Arterial 30(L) 35 - 45 mmHg [facility] PO2, Arterial 72(L) 85 - 104 mmHg [facility] Bicarbonate, Arterial 16.0(L) 20.0 - 26.0 mmol/L [facility] Base Excess, Arterial -9.8(L) -3.0 - 3.0 mmol/L [facility] Hgb Blood Gas 11.0(L) 11.7 - 15.5 g/dL [facility] Oxyhemoglobin, Arterial 89.8(L) 94.0 - 97.0 % [facility] Carboxyhemoglob in, Arterial 0.3 % [facility] Comment: Nonsmokers: 0.5-1.5% COHB Smokers: Variable, but usually less than 10% Toxic: 20-30% COHB Lethal: Greater than 60% COHB Methemoglobin, Arterial 0.7 <=1.5 % [facility] Na Whole Blood 131(L) 135 - 145 mmol/L [facility] K Whole Blood 4.2 3.5 - 5.0 mmol/L [facility] Comment: Please note: Patients with WBC >100,000 may have falsely elevated Potassium levels. Contact the Clinical Chemistry Laboratory if there are any questions. ICa Whole Blood 1.12(L) 1.15 - 1.33 mmol/L [facility] Comment: Note: ??Total bilirubin higher than 20 mg/dL may lead to falsely low ionized calcium. CL Whole Blood 100 98 - 107 mmol/L [facility] Gluc Whole Bld 160 65 - 199 mg/dL [facility] Comment:Diabetes: >=200 mg/d L plus symptoms. Lactate WB 2.7(H) 0.5 - 2.2 mmol/L [facility] Flow Art 5.0 LPM [facility] Blood 05/12/2023 3:18 AM EDT 05/12/2023 3:18 AM EDT Radha Hollins MD POINT OF CARE TEST ORDERABLES Performing Organization Address City/State/[facility] Co de Phone Number [facility] [place] [address] * (ABNORMAL) Coox2 (05/12/2023 1:14 AM EDT) pO2, Coox 28 mmHg [facility] Hgb Blood Gas 10.9(L) 11.7 - 15.5 g/dL [facility] Oxyhemoglobin, Coox 37.3 % [facility] Carboxyhemoglo bin, Coox 0.3 % [facility] Comment: Nonsmokers: 0.5-1.5% COHB Smokers: Variable, but usually less than 10% Toxic: 20-30% COHB Lethal: Greater than 60% COHB Methemoglobin, Coox 0.5 <=1.5 % [facility] Source Coox Mixed Venous [facility] Blood 05/12/2023 1:14 AM EDT 05/12/2023 1:14 AM EDT Radha Hollins MD POINT OF CARE TEST ORDERABLES [facility] [place] [address] * (ABNORMAL) BLOOD GAS 2 ARTERIAL (05/12/2023 1:06 AM EDT) pH, Arterial 7.34(L) 7.35 - 7.45 [facility] PCO2, Arterial 30(L) 35 - 45 mmHg [facility] PO2, Arterial 81(L) 85 - 104 mmHg [facility] Bicarbonate, Arterial 15.7(L) 20.0 - 26.0 mmol/L [facility] Base Excess, Arterial -10.1(L) -3.0 - 3.0 mmol/L [facility] [facility] Hgb Blood Gas 11.0(L) 11.7 - 15.5 g/dL [facility] Oxyhemoglobin, Arterial 92.3(L) 94.0 - 97.0 % [facility] Carboxyhemoglob in, Arterial 0.2 % [facility] Comment: Nonsmokers: 0.5-1.5% COHB Smokers: Variable, but usually less than 10% Toxic: 20-30% COHB Lethal: Greater than 60% COHB Methemoglobin, Arterial 0.6 <=1.5 % [facility] Na Whole Blood 131(L) 135 - 145 mmol/L [facility] K Whole Blood 4.2 3.5 - 5.0 mmol/L [facility] Comment: Please note: Patients with WBC >100,000 may have falsely elevated Potassium levels. Contact the Clinical Chemistry Laboratory if there are any questions. ICa Whole Blood 1.13(L) 1.15 - 1.33 mmol/L [facility] Comment: Note: ??Total bilirubin higher than 20 mg/dL may lead to falsely low ionized calcium. CL Whole Blood 99 98 - 107 mmol/L [facility] Gluc Whole Bld 132 65 - 199 mg/dL [facility] Comment:Diabetes: >=200 mg/d L plus symptoms. Lactate WB 2.7(H) 0.5 - 2.2 mmol/L [facility] Flow Art 5.0 LPM [facility] Blood 05/12/2023 1:06 AM EDT 05/12/2023 1:06 AM EDT Radha Hollins MD POINT OF CARE TEST ORDERABLES [facility] [place] [address] * (ABNORMAL) Differential, Automated (05/12/2023 1:05 AM EDT) Neutrophil % 83.3 % [facility] Neutrophil Absolute 7.49(H) 1.70 - 6.10 x10(3)/mc L [facility] Lymph % 7.1 % [facility] Lymphocytes Abs 0.6(L) 0.9 - 3.2 x10(3)/mc L [facility] Monocyte % 8.9 % [facility] Monocyte Abs 0.8 0.3 - 0.9 x10(3)/mc L [facility] Eos % 0.0 % [facility] Eosinophils Abs 0.0 0.0 - 0.4 x10(3)/mc L [facility] Basophil % 0.1 % [facility] Baso Absolute 0.0 0.0 - 0.1 x10(3)/mc L [facility] Immature Gran % 0.60 % [facility] Comment: Immature granulocytes(IG's)percentage and absolute count will include metamyelocytes, myelocytes, and promyelocytes. Blood smears from CBCs yielding IG's will be scanned manually for concordance. If this scan disagrees with the automated IG or if promyelocytes are noted, a manual differential will be performed. Immature Gran Absolute 0.05(H) 0.00 - 0.04 x10(3)/mc L [facility] Blood 05/12/2023 1:05 AM EDT 05/12/2023 1:15 AM EDT Narrative Resulting Agency Comment Spec In Lab Gianni Fletcher MD HEMATOLOGY ORDERABLE S [facility] [place] [address] * (ABNORMAL) Hemogram (05/12/2023 1:05 AM EDT) White Blood Cell 9.0 4.0 - 9.5 x10(3)/mc L [facility] Red Blood Cell 3.01(L) 4.00 - 5.21 x10(6)/mc L [facility] Hemoglobin 9.8(L) 11.7 - 15.5 g/dL [facility] Hematocrit 28.7(L) 35.7 - 45.8 % [facility] Mean Cell Volume 95.3(H) 82.6 - 94.4 fL [facility] Mean Cell Hemoglobin 32.6(H) 27.1 - 32.0 pg [facility] Mean Cell Hemoglobin Concentration 34.1 31.7 - 35.0 g/dL [facility] Platelet 186 145 - 357 x10(3)/mc L [facility] RDW Standard Deviation 43.7 37.0 - 46.0 fL [facility] RDW coefficient of variation 12.7 11.5 - 14.1 % [facility] Mean Platelet Volume 10.3 7.6 - 12.9 fL [facility] NRBC% auto 0.0 % [facility] NRBC Absolute 0.000 0.000 - 0.000 x10(3)/ L [facility] Blood 05/12/2023 1:05 AM EDT 05/12/2023 1:15 AM EDT Narrative Resulting Agency Comment Spec In Lab Gianni Fletcher MD HEMATOLOGY ORDERABLE S [facility] [place] [address] * (ABNORMAL) Comprehensive metabolic panel (non-fasting) (05/12/2023 1:05 AM EDT) Glucose 141 65 - 199 mg/dL [facility] Comment:Diabetes: >=200 mg/d L plus symptoms Blood Urea Nitrogen 63(H) 8 - 18 mg/dL [facility] Creatinine 1.86(H) 0.70 - 1.20 mg/dL [facility] Sodium 131(L) 135 - 145 mmol/L [facility] Potassium 4.4 3.5 - 5.0 mmol/L [facility] Comment: Please note: ??Patients with WBC >100,000 may have falsely elevated Potassium levels. ??For accurate Potassium quantification in these patients send serum separator tube (gold top) for subsequent determinations. ??Contact the Clinical Chemistry Laboratory if there are any questions. Chloride 96(L) 98 - 107 mmol/L [facility] Carbon Dioxide 14(L) 22 - 31 mmol/L [facility] Anion Gap 21(H) 5 - 15 mmol/L [facility] Calcium 9.0 8.5 - 10.5 mg/dL [facility] Protein, Total 6.6 6.1 - 8.0 g/dL [facility] Albumin 3.9 3.2 - 5.2 g/dL [facility] Aspartate Aminotransferase 1,227(H) 0 - 30 unit/L [facility] Alanine Aminotransferase 1,097(H) 0 - 30 unit/L [facility] Alkaline Phosphatase 108(H) 35 - 105 unit/L [facility] Bilirubin, Total 1.0 0.2 - 1.3 mg/dL [facility] Est Glomerular Filtration Rate 29(L) >=60 mL/min/1. 73 m?? [facility] Comment: This patient's estimated [...] Lab Radha Hollins MD CHEMISTRY ORDERABL ES [facility] [place] [address] * XR Chest One View (05/12/2023 1:00 [...] questions please contact the health health care coordinator that requested your imaging [...] have questions please contactthe health health care coordinator that requested your imaging first. Radha Hollins MD IMG DX ORDERABLES * (ABNORMAL) Coox2 (05/12/2023 12:30 AM EDT) pO2, Coox 22 mmHg [facility] Hgb Blood Gas 10.9(L) 11.7 - 15.5 g/dL [facility] Oxyhemoglobin, Coox 25.1 % [facility] Carboxyhemoglo bin, Coox 0.3 % [facility] Comment: Nonsmokers: 0.5-1.5% COHB Smokers: Variable, but usually less than 10% Toxic: 20-30% COHB Lethal: Greater than 60% COHB Methemoglobin, Coox 1.4 <=1.5 % [facility] Source Coox Mixed Venous [facility] Blood 05/12/2023 12:3 0 AM EDT 05/12/2023 12:30 AM EDT Radha Hollins MD POINT OF CARE TEST ORDERABLES [facility] [place] [address] * XR Chest One View (05/11/2023 11:45 [...] questions please contact the health health care coordinator that requested your imaging [...] have questions please contactthe health health care coordinator that requested your imaging first. Electronically signed by: Will Rowe MD, [facility]([phone]), at 05/11/2023 11:57 PM Radha Hollins MD IMG DX ORDERABLES * (ABNORMAL) Lactate, whole blood, send to lab ([facility] [place] [place]) (05/11/2023 7:40 PM EDT) Lactate WB 4.8(Critic al) 0.5 - 2.2 mmol/L [facility] Comment:Called by: NIKI, Read back by: Magdalena Baires, Date/Time:05/11/23 19:54. Blood 05/11/2023 7:40 PM EDT 05/11/2023 7:49 PM EDT Narrative Resulting Agency Comment Spec In Lab Radha Hollins MD CHEMISTRY ORDERABL ES Performing Organization Address [facility] Co de Phone Number [facility] [place] [address] * Urine culture (05/11/2023 7:22 PM EDT) Urine Culture 50,000-99,000 cfu/ml Normal mucosal herman Susceptibilit y testing not routinely performed for Coagulase Negative Staphylococcu s species and other Gram Positive organisms from urine. [facility] Clean Catch Urine 05/11/2023 7:22 PM EDT 05/11/2023 8:50 PM EDT Narrative Resulting Agency Comment Spec In Lab Brody Dale Eusebio OSBORN MICROBIOLOGY - GENE RAL ORDERABLES Performing Organization Address [facility] de Phone Number [facility] [place] [address] * (ABNORMAL) Urinalysis Microscopic Exam (05/11/2023 7:22 PM EDT) RBC, Urine 2 0 - 4 /HPF [facility] WBC, Urine >100(H) 0 - 5 /HPF [facility] Bacteria, Urine Occasional (A) None /HPF [facility] Squamous Epithelial Cells Raw Data, Urine 5(H) <=4 /HPF [facility] Hyaline Casts, Urine 3(H) 0 - 2 /LPF [facility] Clean Catch Urine 05/11/2023 7:22 PM EDT 05/11/2023 7:31 PM EDT Narrative Resulting Agency Comment Spec In Lab Brody Kaplan APRN URINE ORDERABLES Performing Organization Address [facility] Co de Phone Number [facility] [place] [address] * (ABNORMAL) Urinalysis with reflex Culture (05/11/2023 7:22 PM EDT) Glucose, Urine Dipstick Negative Negative mg/dL [facility] Protein, Urine Dipstick Trace(A) Negative mg/dL [facility] Bilirubin, Urine Dipstick Negative Negative mg/dL [facility] Comment: Clinical correlation required for positive Urine Bilirubin results as false positive may occur with some drugs and drug related products. If a false positive is suspected a serum total bilirubin should be considered if clinically indicated. Urobilinogen, Urine Dipstick Normal Normal mg/dL [facility] pH, Urn (dipstick) 5.0 5.0 - 8.0 [facility] Blood, Urine Dipstick Trace(A) Negative mg/dL [facility] Ketone, Urine Dipstick Negative Negative mg/dL [facility] Nitrite, Urine Dipstick Negative Negative [facility] Leukocytes, Urine Dipstick Moderate(A) Negative mcL [facility] Appearance, Urine Dipstick Cloudy(A) Clear [facility] Specific [place] Urine Automated >=1.030(A) 1.005 - 1.030 [facility] Color, Urine Dipstick Yellow Yellow [facility] Reflex to Culture Yes [facility] Clean Catch Urine 05/11/2023 7:22 PM EDT 05/11/2023 7:31 PM EDT Narrative Resulting Agency Comment Spec In Lab Brody Kaplan APRN URINE ORDERABLES Performing Organization Address [facility] Co de Phone Number [facility] [place] [address] * (ABNORMAL) pro-Brain Natriuretic Peptide (05/11/2023 7:11 PM EDT) NT-proBNP >35,000(H) <=124 pg/mL [facility] Blood 05/11/2023 7:11 PM EDT 05/11/2023 7:26 PM EDT Narrative Resulting Agency Comment Spec In Lab Radha Hollins MD CHEMISTRY ORDERABL ES Performing Organization Address City/[facility] Co de Phone Number [facility] [place] [address] * (ABNORMAL) Lactate, whole blood, send to lab ([facility] [place] [place]) (05/11/2023 2:47 PM EDT) Lactate WB 2.9(H) 0.5 - 2.2 mmol/L [facility] Blood 05/11/2023 2:47 PM EDT 05/11/2023 2:53 PM EDT Narrative Resulting Agency Comment Spec In Lab Juan Luis Gonzalez MD CHEMISTRY ORDERABLES Performing Organization Address City/State/[facility] Co de Phone Number [facility] [place] [address] * (ABNORMAL) CT Angiogram Abdomen & Pelvis [...] questions please contact the health health care coordinator that requested your imaging [...] questions please contact the health health care coordinator that requested your imaging first. ? Electronically signed by: Cullen Narayanan MD, [facility] ([phone]), at 05/11/2023 4:37 PM Narrative 05/11/2023 4:37 [...] 610 mm2 Circumference: 88 mm Calcification: Mild Ivowzbv-uj-jzqhybmo height: Left: 6.2 mm Right: 5.8 mm THORACIC AORTA Description: Normal course and caliber. ??Mild diffuse atherosclerotic changes. No acute aortopathy noted. Fire Control Technician G dimensions: Aortic root: 27.6 mm Max ascending aorta: 30.5 mm x 27.7 mm Suggested fluoroscopic angulation based on line extending through the nadirs of the three sinuses of Valsalva, set equidistant: ?? DANISH ??9 degrees; cranial 7 degrees MITRAL: Mitral [...] 610 mm2 Circumference: 88 mm Calcification: Mild Ehtrglt-we-usorxacg height: Left: 6.2 mm Right: 5.8 mm THORACIC AORTA Description: Normal course and caliber. Mild diffuse atheroscleroticchanges. No acute aortopathy noted. Fire Control Technician G dimensions: Aortic root: 27.6 mm Max ascending aorta: 30.5 mm x 27.7 mm Suggested fluoroscopic angulation based on line extending through thenadirs of the three sinuses of Valsalva, set equidistant: DANISH 9 degrees; cranial 7 degrees MITRAL: Mitral [...] have questions please contactthe health health care coordinator that requested your imaging first. Electronically signed by: Cullen Narayanan MD, [facility]([phone]), at 05/11/2023 4:37 PM Antelmo Sharma MD IMG CT ORDERABLES * (ABNORMAL) Lactate, whole blood, send to lab ([facility] [place] [place]) (05/11/2023 9:29 AM EDT) Lactate WB 3.1(H) 0.5 - 2.2 mmol/L [facility] Blood 05/11/2023 9:29 AM EDT 05/11/2023 9:38 AM EDT Narrative Resulting Agency Comment Spec In Lab Juan Luis Gonzalez MD CHEMISTRY ORDERABLES [facility] [place] [address] * (ABNORMAL) Differential, Automated (05/11/2023 4:42 AM EDT) Neutrophil % 78.1 % [facility] Neutrophil Absolute 5.46 1.70 - 6.10 x10(3)/mc L [facility] Lymph % 10.6 % [facility] Lymphocytes Abs 0.7(L) 0.9 - 3.2 x10(3)/mc L [facility] Monocyte % 9.6 % [facility] Monocyte Abs 0.7 0.3 - 0.9 x10(3)/mc L [facility] Eos % 0.0 % [facility] Eosinophils Abs 0.0 0.0 - 0.4 x10(3)/mc L [facility] Basophil % 0.4 % [facility] Baso Absolute 0.0 0.0 - 0.1 x10(3)/mc L [facility] Immature Gran % 1.30 % [facility] Comment: Immature granulocytes(IG's)percentage and absolute count will include metamyelocytes, myelocytes, and promyelocytes. Blood smears from CBCs yielding IG's will be scanned manually for concordance. If this scan disagrees with the automated IG or if promyelocytes are noted, a manual differential will be performed. Immature Gran Absolute 0.09(H) 0.00 - 0.04 x10(3)/mc L [facility] Blood 05/11/2023 4:42 AM EDT 05/11/2023 4:49 AM EDT Narrative Resulting Agency Comment Spec In Lab Klaudia Reid MD HEMATOLOGY OR DERABLES [facility] [place] [address] * (ABNORMAL) Hemogram (05/11/2023 4:42 AM EDT) White Blood Cell 7.0 4.0 - 9.5 x10(3)/mc L [facility] Red Blood Cell 3.44(L) 4.00 - 5.21 x10(6)/mc L [facility] Hemoglobin 11.1(L) 11.7 - 15.5 g/dL [facility] Hematocrit 32.7(L) 35.7 - 45.8 % [facility] Mean Cell Volume 95.1(H) 82.6 - 94.4 fL [facility] Mean Cell Hemoglobin 32.3(H) 27.1 - 32.0 pg [facility] Mean Cell Hemoglobin Concentration 33.9 31.7 - 35.0 g/dL [facility] Platelet 165 145 - 357 x10(3)/mc L [facility] RDW Standard Deviation 43.1 37.0 - 46.0 fL [facility] RDW coefficient of variation 12.7 11.5 - 14.1 % [facility] Mean Platelet Volume 10.1 7.6 - 12.9 fL [facility] NRBC% auto 0.0 % [facility] NRBC Absolute 0.000 0.000 - 0.000 x10(3)/mc L [facility] Blood 05/11/2023 4:42 AM EDT 05/11/2023 4:49 AM EDT Narrative Resulting Agency Comment Spec In Lab Klaudia Reid MD HEMATOLOGY OR DERABLES Performing Organization Address [facility] Co de Phone Number [facility] [place] [address] * Heparin (unfractionated) Level (05/11/2023 4:42 AM EDT) UF Heparin 0.46 IU/mL [facility] Comment: Heparin [...] HEMATOLOGY ORDERAB LES Performing Organization Address [facility] Co de Phone Number [facility] [place] [address] * (ABNORMAL) Comprehensive metabolic panel (non-fasting) (05/11/2023 4:42 AM EDT) Pathologist [facility] Glucose 143 65 - 199 mg/dL [facility] Comment:Diabetes: >=200 mg/d L plus symptoms Blood Urea Nitrogen 42(H) 8 - 18 mg/dL [facility] Creatinine 1.24(H) 0.70 - 1.20 mg/dL [facility] Sodium 134(L) 135 - 145 mmol/L [facility] Potassium 4.6 3.5 - 5.0 mmol/L [facility] Comment: Please note: ??Patients with WBC >100,000 may have falsely elevated Potassium levels. ??For accurate Potassium quantification in these patients send serum separator tube (gold top) for subsequent determinations. ??Contact the Clinical Chemistry Laboratory if there are any questions. Chloride 99 98 - 107 mmol/L [facility] Carbon Dioxide 14(L) 22 - 31 mmol/L [facility] Anion Gap 21(H) 5 - 15 mmol/L [facility] Calcium 9.6 8.5 - 10.5 mg/dL [facility] Protein, Total 7.2 6.1 - 8.0 g/dL [facility] Albumin 3.7 3.2 - 5.2 g/dL [facility] Aspartate Aminotransferase 144(H) 0 - 30 unit/L [facility] Comment:result rechecked-ssc Alanine Aminotransferase 130(H) 0 - 30 unit/L [facility] Comment:result rechecked-ssc Alkaline Phosphatase 72 35 - 105 unit/L [facility] Bilirubin, Total 0.8 0.2 - 1.3 mg/dL [facility] Est Glomerular Filtration Rate 48(L) >=60 mL/min/1. 73 m?? [facility] Comment: This patient's estimated [...] Lab Radha Hollins MD CHEMISTRY ORDERABL ES [facility] [place] [address] * EKG 12 Lead (05/10/2023 1:16 PM EDT) Ventricular rate 118 BPM MUSE SYSTEM Atrial Rate 118 BPM MUSE SYSTEM P-R Interval 152 ms MUSE SYSTEM QRS Duration 104 ms MUSE SYSTEM Q-T Interval 316 ms MUSE SYSTEM QTC Calculated (Bezet) 442 ms MUSE SYSTEM Calculated P [place] 29 degrees MUSE SYSTEM Calculated R [place] 18 degrees MUSE SYSTEM Calculated T [place] -173 degrees MUSE SYSTEM INTERPRETATION Sinus tachycardia Minimal voltage criteria for LVH, may be normal variant ( Summit product ) Septal infarct , age undetermined ST & T wave abnormality, consider lateral ischemia Abnormal ECG When compared with ECG of 10-MAY-2023 07:59, Fusion complexes are no longer Present Premature ventricular complexes are no longer Present ST no longer depressed in Anterior leads Confirmed by MD Villareal Danette ([id number]) on 05/10/2023 8:47:46 PM MUSE SYSTEM 05/10/2023 1:16 PM EDT 05/10/2023 8:47 PM EDT Juan Luis Gonzalez MD ECG ORDERABLES MUSE SYSTEM * Lactate, whole blood, send to lab ([facility] [place]) (05/10/2023 11:52 AM EDT) Lactate WB 1.8 0.5 - 2.2 mmol/L [facility] Blood 05/10/2023 11:5 2 AM EDT 05/10/2023 12:13 PM EDT Narrative Resulting Agency Comment Spec In Lab Juan Luis Gonzalez MD CHEMISTRY ORDERABLES [facility] [place] [address] * XR Chest One View (05/10/2023 11:16 [...] questions please contact the health health care coordinator that requested your imaging first. ? Electronically signed by: ALIX RUVALCABA MD, [facility] ([phone]), at 05/10/2023 1:25 PM Narrative 05/10/2023 1:25 [...] have questions please contactthe health health care coordinator that requested your imaging first. Electronically signed by: ALIX RUVALCABA MD, [facility]([phone]), at 05/10/2023 1:25 PM Juan Luis Gonzalez MD IMG DX ORDERABLES * EKG 12 Lead (05/10/2023 7:59 AM EDT) Ventricular rate 115 BPM MUSE SYSTEM Atrial Rate 115 BPM MUSE SYSTEM P-R Interval 142 ms MUSE SYSTEM QRS Duration 102 ms MUSE SYSTEM Q-T Interval 322 ms MUSE SYSTEM QTC Calculated (Bezet) 445 ms MUSE SYSTEM Calculated P [place] 36 degrees MUSE SYSTEM Calculated R [place] 28 degrees MUSE SYSTEM Calculated T [place] -119 degrees MUSE SYSTEM INTERPRETATION Sinus [...] Automated (05/10/2023 2:28 AM EDT) Pathologist [facility] Neutrophil % 77.1 % [facility] Neutrophil Absolute 4.01 1.70 - 6.10 x10(3)/mc L [facility] Lymph % 14.0 % [facility] Lymphocytes Abs 0.7(L) 0.9 - 3.2 x10(3)/mc L [facility] Monocyte % 7.7 % [facility] Monocyte Abs 0.4 0.3 - 0.9 x10(3)/mc L [facility] Eos % 0.4 % [facility] Eosinophils Abs 0.0 0.0 - 0.4 x10(3)/mc L [facility] Basophil % 0.4 % [facility] Baso Absolute 0.0 0.0 - 0.1 x10(3)/mc L [facility] Immature Gran % 0.40 % [facility] Comment: Immature granulocytes(IG's)percentage and absolute count will include metamyelocytes, myelocytes, and promyelocytes. Blood smears from CBCs yielding IG's will be scanned manually for concordance. If this scan disagrees with the automated IG or if promyelocytes are noted, a manual differential will be performed. Immature Gran Absolute 0.02 0.00 - 0.04 x10(3)/mc L [facility] Blood 05/10/2023 2:28 AM EDT 05/10/2023 2:57 AM EDT Narrative Resulting Agency Comment Spec In Lab Klaudia Reid MD HEMATOLOGY OR DERABLES [facility] [place] [address] * (ABNORMAL) Hemogram (05/10/2023 2:28 AM EDT) White Blood Cell 5.2 4.0 - 9.5 x10(3)/mc L [facility] Red Blood Cell 3.11(L) 4.00 - 5.21 x10(6)/mc L [facility] Hemoglobin 10.2(L) 11.7 - 15.5 g/dL [facility] Hematocrit 30.2(L) 35.7 - 45.8 % [facility] Mean Cell Volume 97.1(H) 82.6 - 94.4 fL [facility] Mean Cell Hemoglobin 32.8(H) 27.1 - 32.0 pg [facility] Mean Cell Hemoglobin Concentration 33.8 31.7 - 35.0 g/dL [facility] Platelet 151 145 - 357 x10(3)/mc L [facility] RDW Standard Deviation 44.9 37.0 - 46.0 fL [facility] RDW coefficient of variation 12.8 11.5 - 14.1 % [facility] Mean Platelet Volume 9.8 7.6 - 12.9 fL [facility] NRBC% auto 0.0 % [facility] NRBC Absolute 0.000 0.000 - 0.000 x10(3)/mc L [facility] Blood 05/10/2023 2:28 AM EDT 05/10/2023 2:57 AM EDT Narrative Resulting Agency Comment Spec In Lab Klaudia Reid MD HEMATOLOGY OR DERABLES [facility] [address] [place] [address] * (ABNORMAL) Comprehensive metabolic panel (non-fasting) (05/10/2023 2:28 AM EDT) Glucose 100 65 - 199 mg/dL [facility] Comment:Diabetes: >=200 mg/d L plus symptoms Blood Urea Nitrogen 30(H) 8 - 18 mg/dL [facility] Creatinine 0.90 0.70 - 1.20 mg/dL [facility] Sodium 134(L) 135 - 145 mmol/L [facility] Potassium 4.1 3.5 - 5.0 mmol/L [facility] Comment: Please note: ??Patients with WBC >100,000 may have falsely elevated Potassium levels. ??For accurate Potassium quantification in these patients send serum separator tube (gold top) for subsequent determinations. ??Contact the Clinical Chemistry Laboratory if there are any questions. Chloride 102 98 - 107 mmol/L [facility] Carbon Dioxide 20(L) 22 - 31 mmol/L [facility] Anion Gap 12 5 - 15 mmol/L [facility] Calcium 9.3 8.5 - 10.5 mg/dL [facility] Protein, Total 6.4 6.1 - 8.0 g/dL [facility] Albumin 3.7 3.2 - 5.2 g/dL [facility] Aspartate Aminotransferase 24 0 - 30 unit/L [facility] Alanine Aminotransferase 14 0 - 30 unit/L [facility] Alkaline Phosphatase 70 35 - 105 unit/L [facility] Bilirubin, Total 0.5 0.2 - 1.3 mg/dL [facility] Est Glomerular Filtration Rate 70 >=60 mL/min/1. 73 m?? [facility] Comment: This patient's estimated [...] MD CHEMISTRY ORDERABL ES Performing Organization Address [facility] [place] [address] * Heparin (unfractionated) Level (05/10/2023 2:28 AM EDT) UF Heparin 0.37 IU/mL [facility] Comment: Heparin [...] HEMATOLOGY ORDERAB LES Performing Organization Address [facility]/ZIP Co de Phone Number [facility] [place] [address] * (ABNORMAL) Differential, Automated (05/09/2023 4:00 AM EDT) Neutrophil % 81.7 % [facility] Neutrophil Absolute 5.26 1.70 - 6.10 x10(3)/mc L [facility] Lymph % 10.7 % [facility] Lymphocytes Abs 0.7(L) 0.9 - 3.2 x10(3)/mc L [facility] Monocyte % 6.5 % [facility] Monocyte Abs 0.4 0.3 - 0.9 x10(3)/ L [facility] Eos % 0.5 % [facility] Eosinophils Abs 0.0 0.0 - 0.4 x10(3)/mc L [facility] Basophil % 0.3 % [facility] Baso Absolute 0.0 0.0 - 0.1 x10(3)/ L [facility] Immature Gran % 0.30 % [facility] Comment: Immature granulocytes(IG's)percentage and absolute count will include metamyelocytes, myelocytes, and promyelocytes. Blood smears from CBCs yielding IG's will be scanned manually for concordance. If this scan disagrees with the automated IG or if promyelocytes are noted, a manual differential will be performed. Immature Gran Absolute 0.02 0.00 - 0.04 x10(3)/ L [facility] Blood 05/09/2023 4:00 AM EDT 05/09/2023 4:19 AM EDT Narrative Resulting Agency Comment Spec In Lab Klaudia Reid MD HEMATOLOGY OR DERABLES Performing Organization Address City/State/[facility] Co de Phone Number [facility] [place] [address] * (ABNORMAL) Hemogram (05/09/2023 4:00 AM EDT) White Blood Cell 6.4 4.0 - 9.5 x10(3)/mc L [facility] Red Blood Cell 3.15(L) 4.00 - 5.21 x10(6)/mc L [facility] Hemoglobin 10.2(L) 11.7 - 15.5 g/dL [facility] Hematocrit 30.3(L) 35.7 - 45.8 % [facility] Mean Cell Volume 96.2(H) 82.6 - 94.4 fL [facility] Mean Cell Hemoglobin 32.4(H) 27.1 - 32.0 pg [facility] Mean Cell Hemoglobin Concentration 33.7 31.7 - 35.0 g/dL [facility] Platelet 151 145 - 357 x10(3)/mc L [facility] RDW Standard Deviation 44.7 37.0 - 46.0 fL [facility] RDW coefficient of variation 12.8 11.5 - 14.1 % [facility] Mean Platelet Volume 9.4 7.6 - 12.9 fL [facility] NRBC% auto 0.0 % [facility] NRBC Absolute 0.000 0.000 - 0.000 x10(3)/mc L [facility] Blood 05/09/2023 4:00 AM EDT 05/09/2023 4:19 AM EDT Narrative Resulting Agency Comment Spec In Lab Klaudia Reid MD HEMATOLOGY OR DERABLES [facility] [place] [address] * Heparin (unfractionated) Level (05/09/2023 4:00 AM EDT) UF Heparin 0.47 IU/mL [facility] Comment: Heparin (anti-Xa) levels should [...] Lab Radha Hollins MD HEMATOLOGY ORDERAB LES [facility] [place] [address] * (ABNORMAL) Comprehensive metabolic panel (non-fasting) (05/09/2023 4:00 AM EDT) Glucose 108 65 - 199 mg/dL [facility] Comment:Diabetes: >=200 mg/d L plus symptoms Blood Urea Nitrogen 31(H) 8 - 18 mg/dL [facility] Creatinine 1.03 0.70 - 1.20 mg/dL [facility] Sodium 137 135 - 145 mmol/L [facility] Potassium 4.4 3.5 - 5.0 mmol/L [facility] Comment: Please note: ??Patients with WBC >100,000 may have falsely elevated Potassium levels. ??For accurate Potassium quantification in these patients send serum separator tube (gold top) for subsequent determinations. ??Contact the Clinical Chemistry Laboratory if there are any questions. Chloride 102 98 - 107 mmol/L [facility] Carbon Dioxide 20(L) 22 - 31 mmol/L [facility] Anion Gap 15 5 - 15 mmol/L [facility] Calcium 9.3 8.5 - 10.5 mg/dL [facility] Protein, Total 6.6 6.1 - 8.0 g/dL [facility] Albumin 3.8 3.2 - 5.2 g/dL [facility] Aspartate Aminotransferase 32(H) 0 - 30 unit/L [facility] Alanine Aminotransferase 18 0 - 30 unit/L [facility] Alkaline Phosphatase 78 35 - 105 unit/L [facility] Bilirubin, Total 0.5 0.2 - 1.3 mg/dL [facility] Est Glomerular Filtration Rate 60 >=60 mL/min/1. 73 m?? [facility] Comment: This patient's estimated [...] MD CHEMISTRY ORDERABL ES Performing Organization Address [facility]/ZIP Co de Phone Number [facility] [place] [address] * (ABNORMAL) pro-Brain Natriuretic Peptide (05/08/2023 4:00 PM EDT) NT-proBNP 25,503(H) <=124 pg/mL [facility] Blood Venous Draw / Unknown 05/08/2023 4:00 PM EDT 05/08/2023 4:25 PM EDT Narrative Resulting Agency Comment Spec In Lab Juan Luis Gonzalez MD CHEMISTRY ORDERABLES Performing Organization Address [facility] Co de Phone Number [facility] [place] [address] * Magnesium (05/08/2023 4:00 PM EDT) Magnesium 0.82 0.69 - 1.07 mmol/L [facility] Blood 05/08/2023 4:00 PM EDT 05/08/2023 4:06 PM EDT Narrative Resulting Agency Comment Spec In Lab Enrique Chua MD CHEMISTRY ORDERABLES Performing Organization Address [facility] Co de Phone Number [facility] [place] [address] * Potassium (05/08/2023 4:00 PM EDT) Potassium 3.9 3.5 - 5.0 mmol/L [facility] Comment: Please note: ??Patients [...] MD CHEMISTRY ORDERABL ES Performing Organization Address [facility] de Phone Number [facility] [place] [address] * Heparin (unfractionated) Level (05/08/2023 4:00 PM EDT) Pathologist [facility] UF Heparin 0.43 IU/mL [facility] Comment: Heparin [...] MD HEMATOLOGY ORDERAB LES Performing Organization Address [facility] Co de Phone Number [facility] [place] [address] * EKG 12 Lead (05/08/2023 3:51 PM EDT) Ventricular rate 98 BPM MUSE SYSTEM Atrial Rate 98 BPM MUSE SYSTEM P-R Interval 150 ms MUSE SYSTEM QRS Duration 102 ms MUSE SYSTEM Q-T Interval 358 ms MUSE SYSTEM QTC Calculated (Bezet) 457 ms MUSE SYSTEM Calculated P [place] 38 degrees MUSE SYSTEM Calculated R [place] 48 degrees MUSE SYSTEM Calculated T [place] -112 degrees MUSE SYSTEM INTERPRETATION Sinus rhythm with frequent and consecutive Premature ventricular and fusion complexes Septal infarct , age undetermined ST & T wave abnormality, consider anterolateral ischemia Abnormal ECG When compared with ECG of 09-NOV-2022 11:17, T wave inversion now evident in Anterolateral leads Confirmed by MD Harshil, Enrique Bell ([id number]) on 05/10/2023 8:11:46 AM MUSE SYSTEM 05/08/2023 3:51 PM EDT 05/10/2023 8:11 AM EDT Radha Hollins MD ECG ORDERABLES MUSE SYSTEM * (ABNORMAL) Differential, Automated (05/08/2023 11:38 AM EDT) Neutrophil % 71.3 % [facility] Neutrophil Absolute 2.91 1.70 - 6.10 x10(3)/mc L [facility] Lymph % 19.1 % [facility] Lymphocytes Abs 0.8(L) 0.9 - 3.2 x10(3)/mc L [facility] Monocyte % 9.0 % [facility] Monocyte Abs 0.4 0.3 - 0.9 x10(3)/mc L [facility] Eos % 0.2 % [facility] Eosinophils Abs 0.0 0.0 - 0.4 x10(3)/mc L [facility] Basophil % 0.2 % [facility] Baso Absolute 0.0 0.0 - 0.1 x10(3)/mc L [facility] Immature Gran % 0.20 % [facility] Comment: Immature granulocytes(IG's)percentage and absolute count will include metamyelocytes, myelocytes, and promyelocytes. Blood smears from CBCs yielding IG's will be scanned manually for concordance. If this scan disagrees with the automated IG or if promyelocytes are noted, a manual differential will be performed. Immature Gran Absolute 0.01 0.00 - 0.04 x10(3)/mc L [facility] Blood 05/08/2023 11:3 8 AM EDT 05/08/2023 11:44 AM EDT Narrative Resulting Agency Comment Spec In Lab Lincoln Sal MD HEMATOLOGY ORDERA BLES [facility] [place] [address] * (ABNORMAL) Hemogram (05/08/2023 11:38 AM EDT) White Blood Cell 4.1 4.0 - 9.5 x10(3)/mc L [facility] Red Blood Cell 3.05(L) 4.00 - 5.21 x10(6)/mc L [facility] Hemoglobin 10.2(L) 11.7 - 15.5 g/dL [facility] Hematocrit 29.6(L) 35.7 - 45.8 % [facility] Mean Cell Volume 97.0(H) 82.6 - 94.4 fL [facility] Mean Cell Hemoglobin 33.4(H) 27.1 - 32.0 pg [facility] Mean Cell Hemoglobin Concentration 34.5 31.7 - 35.0 g/dL [facility] Platelet 136(L) 145 - 357 x10(3)/mc L [facility] RDW Standard Deviation 44.3 37.0 - 46.0 fL [facility] RDW coefficient of variation 12.6 11.5 - 14.1 % [facility] Mean Platelet Volume 9.4 7.6 - 12.9 fL [facility] NRBC% auto 0.0 % [facility] NRBC Absolute 0.000 0.000 - 0.000 x10(3)/ L [facility] Blood 05/08/2023 11:3 8 AM EDT 05/08/2023 11:44 AM EDT Narrative Resulting Agency Comment Spec In Lab Lincoln Sal MD HEMATOLOGY ORDERA BLES [facility] [place] [address] * TSH (05/08/2023 11:38 AM EDT) Thyroid Stimulating Hormone 1.27 0.27 - 4.20 mcIU/mL [facility] Comment: Reference Interval (mcIU/mL): Females: ??First Trimester: 0.23-3.88 ??Second Trimester: 0.22-3.90 ??Third Trimester: 0.44-4.66 Blood 05/08/2023 11:3 8 AM EDT 05/08/2023 11:44 AM EDT Narrative Resulting Agency Comment Spec In Lab Enrique Chua MD CHEMISTRY ORDERABLES Performing Organization Address City/[facility]/ZIP Co de Phone Number [facility] [place] [address] * (ABNORMAL) Phosphorus (05/08/2023 11:38 AM EDT) Phosphorus 4.7(H) 2.5 - 4.5 mg/dL [facility] Blood 05/08/2023 11:3 8 AM EDT 05/08/2023 11:44 AM EDT Narrative Resulting Agency Comment Spec In Lab Enrique Chua MD CHEMISTRY ORDERABLES Performing Organization Address [facility] Co de Phone Number [facility] [place] [address] * Magnesium (05/08/2023 11:38 AM EDT) Magnesium 0.76 0.69 - 1.07 mmol/L [facility] Blood 05/08/2023 11:3 8 AM EDT 05/08/2023 11:44 AM EDT Narrative Resulting Agency Comment Spec In Lab Enrique Chua MD CHEMISTRY ORDERABLES Performing Organization Address [facility] Co de Phone Number [facility] [place] [address] * (ABNORMAL) Basic Metabolic Panel (non-fasting) (05/08/2023 11:38 AM EDT) Glucose 97 65 - 199 mg/dL [facility] Comment:Diabetes: >=200 mg/d L plus symptoms Blood Urea Nitrogen 27(H) 8 - 18 mg/dL [facility] Creatinine 1.02 0.70 - 1.20 mg/dL [facility] Sodium 139 135 - 145 mmol/L [facility] Potassium 4.2 3.5 - 5.0 mmol/L [facility] Comment: Please note: ??Patients with WBC >100,000 may have falsely elevated Potassium levels. ??For accurate Potassium quantification in these patients send serum separator tube (gold top) for subsequent determinations. ??Contact the Clinical Chemistry Laboratory if there are any questions. Chloride 105 98 - 107 mmol/L [facility] Carbon Dioxide 20(L) 22 - 31 mmol/L [facility] Anion Gap 14 5 - 15 mmol/L [facility] Calcium 9.4 8.5 - 10.5 mg/dL [facility] Est Glomerular Filtration Rate 60 >=60 mL/min/1. 73 m?? [facility] Comment: This patient's estimated [...] In Lab Enrique Chua MD CHEMISTRY ORDERABLES [facility] [place] [address] * ECHO COMPLETE (05/08/2023 11:02 AM EDT) Pathologist [facility] EF 25 [email or web address] Anatomical Region Laterality Modality Cardiac Other 05/08/2023 10:0 3 AM EDT Narrative 05/08/2023 11:51 AM EDT ? Echocardiogram Report Name: PURNIMA THACKER ?Study Date: 05/08/2023 10:03 AMBP: 92/64 mmHg ? Patient Location: [facility]^CV29^A : 1955 ? Height: 155 cm ? Account: [id number] Age: 67 yrs ? Weight: 78 kg Gender: Female ?BSA: 1.8 m2 Ordering Physician: ENRIQUE CHUA Referring Physician: MARIO ALBERTO CHIN Performed By: CHUCKIE Canchola Reason For Study: SAVR Stenosis Exam Location: [facility]. Interpretation Summary -Left ventricle is [...] worsening stenosis. Mitral regurgitation is similar. Procedure Complete-54240. Satisfactory quality. There is normal sinus rhythm. [...] Study Date: :03 AMBP: 92/64 mmHg Patient Location:[facility]^CV29^A : 1955 Height: 155 cm Account: [id number] Age: 67 yrs Weight: 78 kg Gender: Female BSA: 1.8 m2 Ordering Physician: ENRIQUE CHUA Referring Physician: MARIO ALBERTO CHIN Performed By: CHUCKIE Canchola Reason For Study: SAVR Stenosis Exam Location: [facility]. Interpretation Summary -Left ventricle is [...] suggestsworsening stenosis. Mitral regurgitation is similar. Procedure Complete-[id number]. Satisfactory quality. There is normal sinus rhythm. [...] 9:45 AM EDT) UF Heparin 0.54 IU/mL [facility] Comment: Heparin [...] Lab Enrique Chua MD HEMATOLOGY ORDERABLE S [facility] [place] [address] documented in this encounter Visit Diagnoses Diagnosis S/P TAVR (transcatheter aortic valve replacement)- Primary Aortic valve stenosis, etiology of cardiac valve disease unspecified Heart failure with reduced ejection fraction due to heart valve disease Mild coronary artery disease by [facility] 11/09/2022 Mixed connective tissue disease Other [...] ejection fraction Mild coronary artery disease by [facility] 11/09/2022 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, 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) Hyperlipidemia, unspecified Heart failure with reduced ejection fraction due to heart valve disease NICOLAS (obstructive sleep apnea) Obstructive sleep apnea (adult) (pediatric) Cardiogenic shock Aortic valve stenosis, etiology of cardiac valve disease unspecified S/P TAVR (transcatheter aortic valve replacement) Chronic idiopathic neutropenia Other neutropenia documented in this encounter Admitting Diagnoses Diagnosis [...] dose on Wed05/12/23 at 1030, Until Discontinued, [place] teeth, Routine Given 05/12/2023 10:04 AM EDT [...] 80 mg, Intravenous, ONCE, 1 dose, On 05/14/23 at 0945 Given 05/14/2023 9:04 AM EDT [...] at 0831, Side port TKO rate, per [facility] flush protocol Rate/Dose Verify 05/13/2023 6:00 AM EDT 10 mL/hr 10 mL/hr Rate/Dose Verify 05/13/2023 4:00 AM EDT 10 mL/hr 10 mL/h r Rate/Dose Verify 05/13/2023 2:00 AM EDT 10 mL/hr 10 mL/h r sodium chloride 0.9% infusion 10-30 mL/hr, Intravenous, DAILY PRN, Starting on Wed05/12/23 at 0944, Until Wed05/17/23 at 0831, Side port TKO rate, per [facility] flush protocol. Rate/Dose Verify 05/17/2023 [...] Provider: Favian Mckeon, RN)0815 (Stopped - Provider: iKa Gallego, VALDO) metoproloL tartrate (Lopressor) tablet 25 [...] DO NOT SPLIT, CRUSH OR OPEN, Routine 826 (Given - Provider: Kia Gallego RN) ticagrelor [...] 08 (Given - Provider: Kia Gallego RN) PRN [...] Routine 0615 (Given - Provid er: Favian Mckeon, RN) Linked Groups Order Group 1: aspirin [...] Routine documented in this encounter Care Teams Die Storage Clerk Relationship Specialty Start Date End Date Magdalena Acosta MD [address] [place] [address] PCP - General Family Medicine 02/05/23 documented as of this encounter
--- OUTSIDE RECORDS SUMMARY | 2024-05-09 15:21 | XMS_ITS | Encounter Summary ---
[place] [address] Care Team Providers Care Nuclear Officer Name Role Phone Magdalena Acosta MD Primary Care Provider Reason for Visit * Auth/Cert (Routine) Specialty Diagnoses / Procedures Referred By Contac t Referred To Contact Diagnoses Symptomatic severe aortic stenosis with low ejection fraction NSTEMI, CHF Haris Chua MD [facility] [place] [address] [facility] Referral ID Status Reason Start Date Expiration Date Visits Re quested Visits Authorized [id number] 1 1 Encounter Details Date Type Department Care Team (Late st Contact Info) Description 05/12/2023 7:35 AM EDT [place] [address] Lynda Mcgowan MD [facility] [place] [address] Alie Park MD [facility] [place] [address] Anesthesia Record Procedure Summary Procedure Name Responsible [...] cephalic vein (lateral side of arm), left; [id number] catheter system; Anatomical Landmarks; US Not Used; [...] RN LDA Cath/EP Sheath 05/12/23; 0733; 14 Thai (Fr); Right; Femoral; Arterial 05/12/23 0733 by Guerda Bender, RN 05/12/23 0830 by Guerda Bender RN LDA Cath/EP Sheath 05/12/23; 0734; 6 Thai (Fr); Right; Femoral; Venous 05/12/23 0734 by Guerda Bender RN 05/12/23 0817 by Guerda Bender RN LDA Cath/EP Sheath 05/12/23; 0734; 7 Thai (Fr); Left; Femoral; Arterial 05/12/23 0734 by Guerda Bender, RN 05/12/23 0837 by Guerda Bender RN LDA Cath/EP Sheath 05/12/23; 0734; 6 Thai (Fr); Left; Femoral; Venous 05/12/23 0734 by [...] Procedure Summary Date: 05/12/23 Room / Location: [facility] / [facility] CATH [facility]S Anesthesia [...] All Anesthesia Providers: Anesthesiologist: Lynda Mcgowan MD College Professor: Nico Graham MD Vitals Value Taken Time [...] 05/08/2023 ??? Mild coronary artery disease by [facility] 11/09/2022 05/08/2023 ??? Heart failure [...] IMG S&I N/A 11/09/2022 CORONARY ANGIOGRAPHY; W [facility],POSSIBLE PCI (WRVU 5.6) performed by [...] 3 general, with a(n) intravenous induction Add-on [id number] TAVR. In cardiogenic shock. Has arterial line, [...] [facility] [place] [address] [place] [id number] 05/12/2024 10:00 AM EDT Office Visit [place] [address] Markel Borjas MD [facility] [address] [place] [address] 03/01/2025 4:15 PM EDT Office Visit Dermatology at [place] [address] [place] [address] Marek Bonilla MD [address] [place] [address] documented as of this encounter Visit Diagnoses [...] mL/hr documented in this encounter Care Teams Nuclear Officer Relationship Specialty Start Date End Date Magdalena Acosta MD [address] [place] [address] PCP - General Family Medicine 02/05/23 documented as of this encounter
--- OUTSIDE RECORDS SUMMARY | 2024-05-09 15:22 | XMS_ITS | Encounter Summary ---
Author Organization [facility] Address [facility] [place] [address] Care Team Providers Care 1St Pressman Name Role Phone Magdalena Acosta MD Primary Care Provider [phone] Encounter Details Date Type Department Care Team [...] [facility] Hematology Oncology [address] [place] [address] 05/12/2024 10:00 AM EDT Office Visit Hematology [place] [address] Markel Borjas MD [facility] [address] [place] [address] 03/01/2025 4:15 PM EDT Office Visit Dermatology at [place] [address] [place] [phone] Marek Bonilla MD [address] [place] [address] documented as of this encounter Visit Diagnoses Not on filedocumented in this encounter Care Teams 1St Pressman Relationship Specialty Start Date End Date Magdalena Acosta MD [address] [place] [address] PCP - General Family Medicine 02/05/23 documented as of this encounter
--- OUTSIDE RECORDS SUMMARY | 2024-05-09 15:22 | XMS_ITS | Encounter Summary ---
Author Organization [facility] [place] [address] Care Team Providers Care Usability Strategist Name Role Phone Magdalena Acosta MD Primary Care Provider [phone] Encounter Details Date Type Department Care Team (Latest Contact Info) Description 02/05/2023 9:33 PM EDT - 02/05/2023 11:59 PM EDT [place] [phone] Discharge Disposition: Home Social History Tobacco Use [...] topically 2 times daily as needed. 10/22/2022 dilTIAZem CD (Cardizem CD) 180 mg Capsule, Sust. Release 24 hr Take 180 mg by mouth daily. 04/28/2022 05/22/2023 metroNIDAZOLE (METROGEL) 0.75 % Gel Apply every other day after washing as needed. 45 g 5 01/09/2022 05/22/2023 losartan (Cozaar) 25 mg Tablet Take 25 mg by mouth daily. 01/29/2020 05/22/2023 spironolactone (ALDACTONE) 25 mg Tablet Take 0.5 tablets by mouth daily. 10/03/2016 05/22/2023 cyanocobalamin, Vitamin B-12, (Vitamin B-12) 1,000 mcg tablet Take 500 mcg by mouth daily. 02/22/2024 doxycycline (Vibramycin) 50 mg capsule Take one capsule by mouth daily in the evening. 90 capsule 01/14/2023 04/20/2023 meloxicam (Mobic) 15 mg tablet Take 15 mg by mouth daily. 05/22/2023 documented as of this encounter Plan of Treatment Upcoming Encounters Date Type Department Care Team (Late st Contact Info) Description 05/12/2024 9:00 AM EDT Laboratory Appointment Lab at [facility] Hematology Oncology [address] [place] [address] 05/12/2024 10:00 AM EDT Office Visit Hematology [place] [address] Markel Borjas MD [facility] [address] HEMATOLOGY [place] [address] 03/01/2025 4:15 PM EDT Office Visit Dermatology at [place] [address] [facility] [place] [phone] Marek Bonilla MD [address], [place] [address] documented as of this encounter Procedures Procedure Name Priority Date/Time Associated Diagnosis Comments SURGICAL PATHOLOGY REPORT Routine 02/05/2023 3:00 PM EDT documented in this encounter Results * Surgical Pathology Report (02/05/2023 3:00 PM EDT) Final Diagnosis [id number] ? Location: OPW The signing pathologist has [...] at: ??[facility] Dept. of Pathology, [place] [address] Surgical Scheduler: Kunal Rubi MD, AP, ??CLIA Certificate: [id number] DISCUSSION If there is an obvious clinical [...] EDT Marek Bonilla MD PATHOLOGY/CYTOLOGY O [facility] [place] [address] [facility] [place] [address] documented in this encounter Visit Diagnoses Not on filedocumented in this encounter Care Teams Usability Strategist Relationship Specialty Start Date End Date Magdalena Acosta MD [address] [place] [address] PCP - General Family Medicine 02/05/23 documented as of this encounter
--- OUTSIDE RECORDS SUMMARY | 2024-05-09 15:22 | XMS_ITS | Encounter Summary ---
Author Organization [place] [address] Care Team Providers Care Weaver Dobby Loom Name Role Phone Magdalena Acosta MD Primary Care Provider [phone] Encounter Details Date Type Department Care Team (Late st Contact Info) Description 05/08/2023 [place] [phone] Luis Felipe Ott MD [facility] [address] Social History Tobacco Use Types Packs/Day Years [...] 0426 Referring Provider: Nitesh Baltazar Patient Location: [facility] Presenting Symptoms per OSH: 67 year [...] diuresis with IV furosemide 20 x 1 ([id number] at rheumatology appointment), SpO2 85% on RA -> 95% on 2L NC, HR 120s. Examination significant for decreased breath sounds at the bases. Pertinent Diagnostic Findings: CBC - Hgb 10.5 CMP - Cr 1.1 BNP 03836 HsTrop 1358 Lactate 1.6 D-dimer 1183, CTPE pending CXR demonstrated pulmonary vascular congestion US showed bilateral b lines Bedside echo reportedly similar to prior TTE for LV function OSH Interventions: ASA 324 Heparin gtt Plan: Transfer to [facility] Above recommendations/plans are based on my conversation with the referring provider. I have not personally interviewed or examined this patient. Luis Felipe Ott MD Market Research Consultant Received a call from provider emergently at 715am. Mentating well and BP 87/53. HR 108 and diursingwell. They were about to start phenylephrine which I stressed was not a good option given concern for severe and increasing afterload. She is warm on exam, mentating and urinating and we do not need to amrit a BP if those things remain stable. Nico Segura, PGY-6 Market Research Consultant [id number] documented in this encounter Plan of Treatment Upcoming Encounters Date Type Department Care Team (Late st Contact Info) Description 05/12/2024 9:00 AM EDT Laboratory Appointment Lab at [facility] Hematology Oncology [address] [place] [address] 05/12/2024 10:00 AM EDT Office Visit [place]ematology [place] [address] Markel Borjas MD [facility] DR [place] [address] 03/01/2025 4:15 PM EDT Office Visit Dermatology at [place] [address] [place] [phone] Marek Bonilla MD [address], [place] [address] documented as of this encounter Visit Diagnoses Not on filedocumented in this encounter Care Teams Weaver Dobby Loom Relationship Specialty Start Date End Date Magdalena Acosta MD [address] [place] [address] PCP - General Family Medicine 02/05/23 documented as of this encounter
--- OUTSIDE RECORDS SUMMARY | 2024-05-09 15:22 | XMS_ITS | Encounter Summary ---
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 documented in this encounter Plan of Treatment Upcoming Encounters Date Type Department Care Team (Late st Contact Info) Description 05/12/2024 9:00 AM EDT Laboratory Appointment Lab at [facility] Hematology Oncology [address] [place] [address] 05/12/2024 10:00 AM EDT Office Visit [place]ematology [place] [address] Markel Borjas MD [facility] [address] [place] [address] 03/01/2025 4:15 PM EDT Office Visit Dermatology at [place] [address] [facility] [place] [phone] Marek Bonilla MD [address], [place] [address] documented as of this encounter Visit Diagnoses Not on filedocumented in this encounter Care Teams Warehouse Receiver Relationship Specialty Start Date End Date Magdalena Acosta MD [address] [place] [address] PCP - General Family Medicine 02/05/23 documented as of this encounter
--- OUTSIDE RECORDS SUMMARY | 2024-05-09 15:22 | XMS_ITS | Encounter Summary ---
[place] [address] Care Team Providers Care Supervisor Cutting Department Name Role Phone Magdalena Acosta MD Primary Care Provider Reason for Visit * Reason Comments Suture / Staple Removal Encounter Details Date Type Department Care Team (Late st Contact Info) Description 02/16/2023 10:00 AM EDT Office Visit Dermatology at [place] [address] [facility] [place] [phone] Marek Bonilla MD [address] [facility] DERMATOLOGY [place], [place] [phone] Visit for suture removal Social History Tobacco [...] [facility] Hematology Oncology [address] [place] [address] 05/12/2024 10:00 AM EDT Office Visit Hematology [place] [address] Markel Borjas MD [facility] DR H[place]AT[place] [address] 03/01/2025 4:15 PM EDT Office Visit Dermatology at [place] [address] [facility] [place] [address] Marek Bonilla MD [address] [facility] [address] [facility], [place] [address] documented as of this encounter Visit Diagnoses Diagnosis Visit for suture removal Encounter for removal of sutures Chronic idiopathic neutropenia Other neutropenia documented in this encounter Care Teams Supervisor Cutting Department Relationship Specialty Start Date End Date Magdalena Acosta MD [address] [place] [address] PCP - General Family Medicine 02/05/23 documented as of this encounter
--- OUTSIDE RECORDS SUMMARY | 2024-05-09 15:22 | XMS_ITS | Encounter Summary ---
[place] [address] Care Team Providers Care Elevator Repair Mechanic Name Role Phone Magdalena Acosta MD Primary Care Provider [phone] Reason for Visit * Reason Comments Skin Lesion Encounter Details Date Type Department Care Team (Late st Contact Info) Description 04/20/2023 10:00 AM EDT Office Visit Dermatology at [address] [address] Marek Bonilla MD [address] [facility], [place] [address] Seborrheic keratosis Social History Tobacco Use Types [...] cutaneous and ocular 3. Previously told by consumer banker that she had corneal tears from her [...] [facility] [place]ematology Oncology [address] [place] [address] 05/12/2024 10:00 AM EDT Office Visit Hematology [place] [address] Markel Borjas MD [facility] [address] HEMATOLOGY [place] [address] 03/01/2025 4:15 PM EDT Office Visit Dermatology at [address] [place] [address] Marek Bonilla MD [address] [facility] [place] [address] documented as of this encounter Visit Diagnoses Diagnosis Seborrheic keratosis Other seborrheic keratosis Chronic idiopathic neutropenia Other neutropenia documented in this encounter Care Teams Elevator Repair Mechanic Relationship Specialty Start Date End Date Magdalena Acosta MD [address] [place] [address] PCP - General Family Medicine 02/05/23 documented as of this encounter
--- OUTSIDE RECORDS SUMMARY | 2024-05-09 15:22 | XMS_ITS | Encounter Summary ---
Author Organization [facility] [place] [address] Care Team Providers Care Assembler Wet Wash Name Role Phone Magdalena Acosta MD Primary Care Provider [phone] Encounter Details Date Type Department Care Team (Late st Contact Info) Description 03/29/2023 Orders Only Cardiology at [address] [phone] Ranjan Delgado MD [facility] [place] [address] Severe aortic stenosis (Primary Dx) Social History [facility] [address] [place] [phone] 05/12/2024 10:00 AM EDT Office Visit [place]ematology [place] [address] Markel Borjas MD [facility] [address] HEMATOLOGY [place] [address] 03/01/2025 4:15 PM EDT Office Visit Dermatology at [place] [address] [place] [phone] Marek Bonilla MD [address], [place] [address] Scheduled Orders Name Type Priority Associated Diagnoses Orde r Schedule CBC (with Diff) Lab Routine Severe aortic stenosis Expected: 04/01/2023, Expires: 03/28/2024 Comprehensive metabolic panel (non-fasting) Lab Routine Severe aortic stenosis Expected: 04/01/2023, Expires: 03/28/2024 EKG 12 Lead ECG Routine Severe aortic stenosis Expected: 06/29/2023 (Approximate) documented as of this encounter Visit Diagnoses Diagnosis Severe aortic stenosis- Primary Aortic valve disorders Chronic idiopathic neutropenia Other neutropenia documented in this encounter Care Teams Assembler Wet Wash Relationship Specialty Start Date End Date Magdalena Acosta MD [address] [place] [address] PCP - General Family Medicine 02/05/23 documented as of this encounter
--- OUTSIDE RECORDS SUMMARY | 2024-05-09 15:22 | XMS_ITS | Encounter Summary ---
Author Organization [facility] Address [facility] [place] [address] Care Team Providers Care Mineral Industry Teacher Name Role Phone Magdalena Acosta MD Primary Care Provider [phone] Encounter Details Date Type Department Care Team [...] [facility] [place] Oncology [address] [place] [address] 05/12/2024 10:00 AM EDT Office Visit [place] [address] Markel Borjas MD [facility] [address] [place] [address] 03/01/2025 4:15 PM EDT Office Visit Dermatology at [place] [address] [facility] [place] [phone] Marek Bonilla MD [address] [facility], [place] [address] documented as of this encounter Visit Diagnoses Not on filedocumented in this encounter Care Teams Mineral Industry Teacher Relationship Specialty Start Date End Date Magdalena Acosta MD [address] [place] [address] PCP - General Family Medicine 02/05/23 documented as of this encounter
--- OUTSIDE RECORDS SUMMARY | 2024-05-09 15:22 | XMS_ITS | Encounter Summary ---
Author Organization [facility] [place] [address] Care Team Providers Care Towel Sorter Name Role Phone Magdalena Acosta MD Primary Care Provider [phone] Encounter Details Date Type Department Care Team (Latest Contact Info) Description 03/18/2023 2:30 PM EDT Laboratory Appointment Lab [address] [phone] Positive FRANCISCO (antinuclear antibody) Social History Tobacco [...] Lab at [facility] Hematology Oncology [address] [place] [address] 05/12/2024 10:00 AM EDT Office Visit [place] [address] Markel Borjas MD [facility] [place] [address] 03/01/2025 4:15 PM EDT Office Visit Dermatology at [address] [address] Marek Bonilla MD [address] [facility] [place] [place], [place] [phone] documented as of this encounter Procedures Procedure [...] CK Routine 03/18/2023 2:14 PM EDT Positive FRACNISCO (antinuclear antibody) COMPREHENSIVE METABOLIC PANEL Routine 03/18/2023 2:14 PM EDT Positive FRANCISCO (antinuclear antibody) documented in this encounter Results * (ABNORMAL) Differential, Automated (03/18/2023 2:14 PM EDT) Pathologist [facility] Neutrophil % 71.2 % [facility] Neutrophil Absolute 2.26 1.70 - 6.10 x10(3)/mc L [facility] Lymph % 18.2 % [facility] Lymphocytes Abs 0.6(L) 0.9 - 3.2 x10(3)/ L [facility] Monocyte % 9.7 % [facility] Monocyte Abs 0.3 0.3 - 0.9 x10(3)/[facility] [address] LABORATORY Eos % 0.3 % [facility] Eosinophils Abs 0.0 0.0 - 0.4 x10(3)/[facility] [address] LABORATORY Basophil % 0.6 % [facility] Baso Absolute 0.0 0.0 - 0.1 x10(3)/[facility] [address] LABORATORY Immature Gran % 0.00 % [facility] Comment: Immature granulocytes(IG's)percentage and absolute count will include metamyelocytes, myelocytes, and promyelocytes. Blood smears from CBCs yielding IG's will be scanned manually for concordance. If this scan disagrees with the automated IG or if promyelocytes are noted, a manual differential will be performed. Immature Gran Absolute 0.00 0.00 - 0.04 x10(3)/[facility] [address] LABORATORY Blood 03/18/2023 2:14 PM EDT 03/18/2023 2:24 PM EDT Narrative Resulting Agency Comment Spec In Lab Magdalena Peralta MD HEMATOLOGY ORDERABLE S [facility] [place] [address] * (ABNORMAL) Hemogram (03/18/2023 2:14 PM EDT) White Blood Cell 3.2(L) 4.0 - 9.5 x10(3)/[facility] [address] LABORATORY Red Blood Cell 3.44(L) 4.00 - 5.21 x10(6)/[facility] [address] LABORATORY Hemoglobin 11.1(L) 11.7 - 15.5 g/dL [facility] Hematocrit 32.9(L) 35.7 - 45.8 % [facility] Mean Cell Volume 95.6(H) 82.6 - 94.4 fL [facility] Mean Cell Hemoglobin 32.3(H) 27.1 - 32.0 pg [facility] Mean Cell Hemoglobin Concentration 33.7 31.7 - 35.0 g/dL [facility] Platelet 144(L) 145 - 357 x10(3)/mc L [facility] RDW Standard Deviation 42.6 37.0 - 46.0 fL [facility] RDW coefficient of variation 12.3 11.5 - 14.1 % [facility] Mean Platelet Volume 9.4 7.6 - 12.9 fL [facility] NRBC% auto 0.0 % [facility] NRBC Absolute 0.000 0.000 - 0.000 x10(3)/mc L [facility] Blood 03/18/2023 2:14 PM EDT 03/18/2023 2:24 PM EDT Narrative Resulting Agency Comment Spec In Lab Magdalena Peralta MD HEMATOLOGY ORDERABLE S Performing Organization Address City/[facility]/ZIP Co de Phone Number [facility] [place] [address] * (ABNORMAL) Sedimentation rate (03/18/2023 2:14 PM EDT) Sedimentation Rate Automated 68(H) 2 - 39 mm/hr [facility] Comment: Effective July 12, 2019 new capillary photometric technology has resulted in a change in reference ranges. It is recommended that each ESR result be reviewed with its own age appropriate reference range. Blood 03/18/2023 2:14 PM EDT 03/18/2023 2:24 PM EDT Narrative Resulting Agency Comment Spec In Lab Kia Viramontes DO HEMATOLOGY ORDERAB LES [facility] [place] [address] * CRP, acute inflammation (03/18/2023 2:14 PM EDT) C-Reactive Protein 3.0 <=4.9 mg/L [facility] Blood 03/18/2023 2:14 PM EDT 03/18/2023 2:24 PM EDT Narrative Resulting Agency Comment Spec In Lab Kiagiacomo Mossew DO CHEMISTRY ORDERABL ES Performing Organization Address [facility] Co de Phone Number [facility] [place] [address] * C3 Complement (03/18/2023 2:14 PM EDT) Complement C3 142 90 - 180 mg/dL [facility] Blood 03/18/2023 2:14 PM EDT 03/18/2023 2:24 PM EDT Narrative Resulting Agency Comment Spec In Lab Kia Mossew DO CHEMISTRY ORDERABL ES Performing Organization Address [facility] de Phone Number [facility] [place] [address] * C4 Complement (03/18/2023 2:14 PM EDT) Complement C4 30 10 - 40 mg/dL [facility] Blood 03/18/2023 2:14 PM EDT 03/18/2023 2:24 PM EDT Narrative Resulting Agency Comment Spec In Lab Kia Mossew DO CHEMISTRY ORDERABL ES Performing Organization Address [facility] de Phone Number [facility] [place] [address] * CK (03/18/2023 2:14 PM EDT) Creatine Kinase 38 0 - 160 unit/L [facility] Blood 03/18/2023 2:14 PM EDT 03/18/2023 2:24 PM EDT Narrative Resulting Agency Comment Spec In Lab Kia D Wander DO CHEMISTRY ORDERABL ES Performing Organization Address [facility] Co de Phone Number [facility] [place] [address] * DNA Antibody (Double-Stranded) (03/18/2023 2:14 PM EDT) dsDNA Ab <0.6 <=15.0 IU/mL [facility] Comment: <10 negative 10-15 equivocal >15 positive This dsDNA antibody result was generated using a fluoroenzyme immunoassay on the [employer] 250 analyzer. This quantitative test is designed to detect IgG antibodies directed against double stranded DNA in human serum. The presence of antibodies that recognize dsDNA is a highly specific marker for systemic lupus erythematosus. Please note that as of 05/26/2022 that this testing is performed by the Special Chemistry Laboratory at [facility]. This change in testing location is associated with a change is testing method and reference intervals. Please review the results of this test in association with the posted reference intervals. Blood 03/18/2023 2:14 PM EDT 03/19/2023 7:19 AM EDT Narrative Resulting Agency Comment Spec In Lab Kia Viramontes DO LAB SEND OUT ORDER JODIE [facility] [place] [address] * (ABNORMAL) FRANCISCO Ab by IFA (03/18/2023 2:14 PM EDT) [facility] FRANCISCO Ab Screen Test ? Result ?Flag ??Unit ??RefValue Antinuclear Ab, HEp-2 ?Positive 1:2560 ??@ ?<1:80 (Negative) ??Substrate, S ? ADDITIONAL INFORMATION --------- ?Method: Immunofluorescence using HEp-2 cellular substrate. ??FRANCISCO Titer: ? 1:2560 ??FRANCISCO Pattern: ? Speckled ?Test Performed by: ?[facility] ?[address] [place] [address] ?Sign Writer Hand: Raymond Chaudhry M.D. Ph.D.; CLIA# [id number] ([id number]) [facility] Blood 03/18/2023 2:14 PM EDT 03/18/2023 3:02 PM EDT Narrative Resulting Agency Comment Spec In Lab Kia Viramontes DO CHEMISTRY ORDERABL ES [facility] [place] [address] * Comprehensive metabolic panel (non-fasting) (03/18/2023 2:14 PM EDT) Glucose 93 65 - 199 mg/dL [facility] Comment:Diabetes: >=200 mg/d L plus symptoms Blood Urea Nitrogen 18 8 - 18 mg/dL [facility] Creatinine 0.99 0.70 - 1.20 mg/dL [facility] Sodium 141 135 - 145 mmol/L [facility] Potassium 4.5 3.5 - 5.0 mmol/L [facility] Comment: Please note: ??Patients with WBC >100,000 may have falsely elevated Potassium levels. ??For accurate Potassium quantification in these patients send serum separator tube (gold top) for subsequent determinations. ??Contact the Clinical Chemistry Laboratory if there are any questions. Chloride 106 98 - 107 mmol/L [facility] Carbon Dioxide 24 22 - 31 mmol/L [facility] Anion Gap 11 5 - 15 mmol/L [facility] Calcium 10.0 8.5 - 10.5 mg/dL [facility] Protein, Total 7.3 6.1 - 8.0 g/dL [facility] Albumin 4.3 3.2 - 5.2 g/dL [facility] Aspartate Aminotransferase 26 0 - 30 unit/L [facility] Alanine Aminotransferase 11 0 - 30 unit/L [facility] Alkaline Phosphatase 91 35 - 105 unit/L [facility] Bilirubin, Total 0.4 0.2 - 1.3 mg/dL [facility] Est Glomerular Filtration Rate 62 >=60 mL/min/1. 73 m?? [facility] [...] Lab Kia Viramontes DO CHEMISTRY ORDERABL ES [facility] [place] [address] documented in this encounter Visit Diagnoses Diagnosis Positive FRANCISCO (antinuclear antibody) Other and unspecified nonspecific immunological findings Chronic idiopathic neutropenia Other neutropenia documented in this encounter Care Teams Towel Sorter Relationship Specialty Start Date End Date Magdalena Acosta MD [address] [place] [address] PCP - General Family Medicine 02/05/23 documented as of this encounter
--- OUTSIDE RECORDS SUMMARY | 2024-05-09 15:22 | XMS_ITS | Encounter Summary ---
Author Organization Formerly [facility], 1928–1983 Address [facility] [place] [address] Care Team Providers Care Retail Wireless Associate Name Role Phone Magdalena Acosta MD Primary Care Provider [phone] Reason for Visit * Consultation (Routine) - Closed Specialty Diagnoses / Procedures Referred By Contac t Referred To Contact Rheumatology Diagnoses Weakness Kyra Haas MD [facility] [address] [place] [address] [facility] [address] [place] [phone] Referral ID Status Reason Start Date Expiration Date V isits Requested Visits Authorized [id number] Closed Consult, Test & Treat PCP Updated and/or Approved 02/25/2023 02/25/2024 6 6 Encounter Details Date Type Department Care Team (Late st Contact Info) Description 03/18/2023 1:00 PM EDT [place] [address] Kia Viramontes DO [facility] [place] [address] Magdalena Peralta MD [facility] [place] [address] Positive FRANCISCO (antinuclear antibody) Social [...] 1:5120 speckled VIC negative Myositis panel with CRUSHER MACHINE OPERATOR ab 149.1 (positive) Anti U1RNP IgG 119 [...] a chair without assistance of upper extremities. Focused Factory Manager strength 3+/5 bilaterally; otherwise large muscle [...] EMG 01/2023 under media tab Impression: Purnima Thakcer is a 67 y.o. female with medical [...] due to risk of retinal toxicity with skilled nursing Plaquenil use, which she already does. Recommendations: #mixed connective tissue disease Start hydroxychloroquine 200 mg qd Labs today: repeat FRANCISCO, dsDNA, complements, CBC, CMP, CK, ESR, CRP Follow up 1 month The patient was seen and discussed with Dr. Wander Peralta MD Rheumatology Fellow Pager: [phone] CC: Kyra Haas * Kia Viramontes DO [...] [facility] [address] [place] [id number] 05/12/2024 10:00 AM EDT Office Visit [place]ology [place] [address] Markel Borjas MD [facility] DR HEMATOLOGY [place] [address] 03/01/2025 4:15 PM EDT Office Visit Dermatology at [place] [address] [place] [address] Marek Bonilla MD [address] [facility] [place] [address] documented as of this encounter Results * Comprehensive metabolic panel (non-fasting) (03/18/2023 2:14 PM EDT) [facility] Signature Glucose 93 65 - 199 mg/dL [facility] Comment:Diabetes: >=200 mg/d L plus symptoms Blood Urea Nitrogen 18 8 - 18 mg/dL [facility] Creatinine 0.99 0.70 - 1.20 mg/dL [facility] Sodium 141 135 - 145 mmol/L [facility] Potassium 4.5 3.5 - 5.0 mmol/L [facility] Comment: Please note: ??Patients with WBC >100,000 may have falsely elevated Potassium levels. ??For accurate Potassium quantification in these patients send serum separator tube (gold top) for subsequent determinations. ??Contact the Clinical Chemistry Laboratory if there are any questions. Chloride 106 98 - 107 mmol/L [facility] Carbon Dioxide 24 22 - 31 mmol/L [facility] Anion Gap 11 5 - 15 mmol/L [facility] Calcium 10.0 8.5 - 10.5 mg/dL [facility] Protein, Total 7.3 6.1 - 8.0 g/dL [facility] Albumin 4.3 3.2 - 5.2 g/dL [facility] Aspartate Aminotransferase 26 0 - 30 unit/L [facility] Alanine Aminotransferase 11 0 - 30 unit/L [facility] Alkaline Phosphatase 91 35 - 105 unit/L [facility] Bilirubin, Total 0.4 0.2 - 1.3 mg/dL [facility] Est Glomerular Filtration Rate 62 >=60 mL/min/1. 73 m?? [facility] [...] CHEMISTRY ORDERABL ES Performing Organization Address City/State/[facility] Co de Phone Number [facility] [place] [address] * (ABNORMAL) FRANCISCO Ab by IFA (03/18/2023 2:14 PM EDT) FRANCISCO Ab Screen Test ? Result ?Flag ??Unit ??RefValue Antinuclear Ab, HEp-2 ?Positive 1:2560 ??@ ?<1:80 (Negative) ??Substrate, S ? ADDITIONAL INFORMATION --------- ?Method: Immunofluorescence using HEp-2 cellular substrate. ??FRANCISCO Titer: ? 1:2560 ??FRANCISCO Pattern: ? Speckled ?Test Performed by: ?[facility] ?[address] [id number] ?[place] [employer]: Raymond Chaudhry M.D. Ph.D.; CLIA# [id number] ([id number]) [facility] Blood 03/18/2023 2:14 PM EDT 03/18/2023 3:02 PM EDT Narrative Resulting Agency Comment Spec In Lab Kia Viramontes DO CHEMISTRY ORDERABL ES [facility] [place] [address] * DNA Antibody (Double-Stranded) (03/18/2023 2:14 PM EDT) dsDNA Ab <0.6 <=15.0 IU/mL [facility] Comment: <10 negative 10-15 equivocal >15 positive This dsDNA antibody result was generated using a fluoroenzyme immunoassay on the [employer] 250 analyzer. This quantitative test is designed to detect IgG antibodies directed against double stranded DNA in human serum. The presence of antibodies that recognize dsDNA is a highly specific marker for systemic lupus erythematosus. Please note that as of 05/26/2022 that this testing is performed by the Special Chemistry Laboratory at [facility]. This change in testing location is associated with a change is testing method and reference intervals. Please review the results of this test in association with the posted reference intervals. Blood 03/18/2023 2:14 PM EDT 03/19/2023 7:19 AM EDT Narrative Resulting Agency Comment Spec In Lab Kia Viramontes DO LAB SEND OUT ORDER JODIE Performing Organization Address [facility] Co de Phone Number [facility] [place] [address] * CK (03/18/2023 2:14 PM EDT) Creatine Kinase 38 0 - 160 unit/L [facility] Blood 03/18/2023 2:14 PM EDT 03/18/2023 2:24 PM EDT Narrative Resulting Agency Comment Spec In Lab Kia Viramontes DO CHEMISTRY ORDERABL ES Performing Organization Address [facility] Co de Phone Number [facility] [place] [address] * C4 Complement (03/18/2023 2:14 PM EDT) Complement C4 30 10 - 40 mg/dL [facility] Blood 03/18/2023 2:14 PM EDT 03/18/2023 2:24 PM EDT Narrative Resulting Agency Comment Spec In Lab Kia D Wander DO CHEMISTRY ORDERABL ES Performing Organization Address [facility] Co de Phone Number [facility] [place] [address] * C3 Complement (03/18/2023 2:14 PM EDT) Complement C3 142 90 - 180 mg/dL [facility] Blood 03/18/2023 2:14 PM EDT 03/18/2023 2:24 PM EDT Narrative Resulting Agency Comment Spec In Lab Kia Viramontes DO CHEMISTRY ORDERABL ES Performing Organization Address [facility] Co de Phone Number [facility] [place] [address] * CRP, acute inflammation (03/18/2023 2:14 PM EDT) C-Reactive Protein 3.0 <=4.9 mg/L [facility] Blood 03/18/2023 2:14 PM EDT 03/18/2023 2:24 PM EDT Narrative Resulting Agency Comment Spec In Lab Kiagiacomo Viramontes DO CHEMISTRY ORDERABL ES Performing Organization Address [facility] Co de Phone Number [facility] [place] [address] * (ABNORMAL) Sedimentation rate (03/18/2023 2:14 PM EDT) Sedimentation Rate Automated 68(H) 2 - 39 mm/hr [facility] Comment: Effective July 12, 2019 new capillary photometric technology has resulted in a change in reference ranges. It is recommended that each ESR result be reviewed with its own age appropriate reference range. Blood 03/18/2023 2:14 PM EDT 03/18/2023 2:24 PM EDT Narrative Resulting Agency Comment Spec In Lab Kia Viramontes DO HEMATOLOGY ORDERAB LES Performing Organization Address [facility] Co de Phone Number [facility] [place] [address] documented in this encounter Visit Diagnoses Diagnosis Positive FRANCISCO (antinuclear antibody) Other and unspecified nonspecific immunological findings Chronic idiopathic neutropenia Other neutropenia documented in this encounter Care Teams Retail Wireless Associate Relationship Specialty Start Date End Date Magdalena Acosta MD [address] [place] [address] PCP - General Family Medicine 02/05/23 documented as of this encounter
--- OUTSIDE RECORDS SUMMARY | 2024-05-09 15:22 | XMS_ITS | Encounter Summary ---
[facility] Organization [facility] [place] [address] Care Team Providers Care Clam Treader Name Role Phone Magdalena Acosta MD Primary Care Provider [phone] Reason for Visit * Auth/Cert (Routine) Specialty Diagnoses / Procedures Referred By Contac t Referred To Contact Diagnoses Symptomatic severe aortic stenosis with low ejection fraction NSTEMI, CHF Enrique Chua MD [facility] [place] [address] [facility] Referral ID Status Reason Start Date Expiration Date Visits Re quested Visits Authorized [id number] 1 1 Encounter Details Date Type Department Care Team (Late st Contact Info) Description 05/12/2023 2:50 PM EDT - 05/12/2023 3:50 PM EDT Surgery Senior Electrical [place] [address] Antelmo Sharma MD [facility] [place] [address] CARDIAC CATHETERIZATION Social History Tobacco Use Types [...] Patient Age: 67 y.o. Birthdate: 1955 Language: Iranian Race: White Ethnicity: Not nor Admit Date: 05/08/2023 Discharge Date: 05/22/2023 Attending Physician: Alirio Hudson MD Follow-up Recommendations for Providers: Please continue routine management of cardiovascular risk factors including blood pressure, lipids,glucose, etc. Please note any medication changes. Patient to follow up with PCP, Magdalena Acosta MD, or Primary Blocker Heated Metal Forms, Avis Mejia MD, in ~ 7-10 days. Patient to follow up with Engineering Instructor, Dr. Antelmo Sharma, in 2 weeks with an EKG, Echo, CBC, and CMP. Patient to follow up with Nephrology, their office to arrange. Ytet-Nzbacc-dz interval: After initial 30 day follow-up appointment , all TAVR patients will follow-up again in one year with an echo. 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 Secondary Diagnoses: Active Hospital Problems Diagnosis S/P TAVR (transcatheter aortic valve replacement) Cardiogenic shock Symptomatic severe aortic stenosis with low ejection fraction Mild coronary artery disease by [facility] 11/09/2022 Heart failure with [...] Tube Placement Right 05/18/2023 Laure Ricks PA [facility] INTERVENTIONL RAD PRG CATH PLMT LEFT HEART CATH & ARTS W/INJ & ANGIO IMG S&I N/A 11/09/2022 CORONARY ANGIOGRAPHY; W [facility],POSSIBLE PCI (WRVU 5.6) performed by Mario Alberto Escobedo MD at [facility] CATH LABS PRG COMBINED RIGHT & LEFT HEART CATH W/INJ L VENTRICULOGRAPHY, IMG S&I N/A 05/12/2023 COMBINED RIGHT & LEFT HEART CATH,INC INJ FOR L VENTRICULOGRAPHY (WRVU 5.99) performed by Antelmo Sharma MD at [facility] CATH LABS PRO AORTOPLAS FOR SUPRAVALV STEN N/A 09/21/2016 @AORTOPLASTY FOR SUPRAVALVULAR STENOSIS (WRVU 29.33) performed by Alirio Hudson MD at [facility] MAIN OR PRO REPLACE AORTIC VALVE (TAVR/FEDERICO)PERC FEMORAL ARTERY APPROACH 05/12/2023 @TRANSCATHETER AORTIC VALVE REPLACEMENT (TAVR), PERCUTANEOUS FEMORAL (WRVU 22.47) performed by Alirio Hudson MD at [facility] CATH LABS PRO REPLACEMENT PROSTHETIC AORTIC VALVE OPEN W CARDIOPULMONARY BYPASS HOMOGRF/STENT N/A 09/21/2016 @REPLACE AORTIC VALVE, OPEN, W\CPB, W\PROSTHETIC VALVE (WRVU 41.32) performed by Alirio Hudson MD at [facility] MAIN OR Prior To Admission Medications Medications [...] Major Procedures/Operations: 05/12/23: Successful right transfemoral TAVR Fkpqt-td-Tlgdm with a 23 mm Lai 3 THV. Left coronary protection with left main MINNA. Hospital Course: #Severe prosthetic s/p valve in valve TF TAVR #Low coronary heights s/p left main stent for coronary protection #Type 2 NSTEMI, present on arrival, resolved #Acute decompensated HFrEF #Cardiogenic shock #EVANS / Cardiorenal syndrome Purnima Thacker was admitted to [facility] on 05/08/2023 via the Cardiology Service [...] TAVR and she was brought to the cathodic protection technician the following morning where Drs. Alirio [...] if you have questions. Please call your Engineering Instructor's office if you have any discharge or drainage from your procedural sites. Your Engineering Instructor, Dr. Antelmo Sharma and/or the Horse Show Manager may be reached at . Antibiotic prophylaxis: You will need to take antibiotics prior to many invasive tests and treatments, such as dental cleaning, which should be done every 6 months. Your primary care physician or your dentist can prescribe this medication. Please refer to the card with the [place] [employer] Guidelines for more information. You have been provided with a copy of this card. Please refer to the [place] [employer] Guidelines for more information. Good [...] should resume a low fat, low cholesterol, [place] [employer] Diet Driving: No restrictions. Shower/Bath: You may shower daily. No baths, soaking, or swimming for the first week. Wound care: Wash the sites daily with soap and rinse well, pat dry. Assess for any signs of infection such as increased redness, pain, warmth or drainage. Please call your hatch tender's office if you have any discharge or drainage from your procedural sites. If there is a lot of swelling, apply mamta wraps during the day and remove at bedtime. Elevate your legs when you are sitting. Home oxygen therapy: N/A Follow up appointments: Please schedule a follow-up appointment with your PCP, Magdalena Acosta MD, or Primary Blocker Heated Metal Forms in ~ 7-10 days. You have a follow-up appointment with your Engineering Instructor, Dr. Antelmo Sharma, in 2 weeks with an EKG, Echo, and labs prior to your appointment. You will need follow-up with Nephrology, their office will arrange. Qfni-Uewxcr-wp interval: After initial 30 day follow-up appointment , all TAVR patients will follow-up again in one year with an echo. Cardiac Rehabilitation: Purnima Thacker was seen today regarding participation in the outpatient Phase 2 Cardiac Rehabilitation at [facility]. The patient agrees to a referral to this program. The referral will be sent at discharge and the patient should be contacted by the Program within 1- 2 weeks from discharge. Future Appointments and Orders Future Appointments and Orders Future Appointments Provider Department Dept Phone 07/29/2023 11:00 AM Magdalena Peralta MD [place]umatology at [facility] Arrive at: [facility] [address] [phone] 02/11/2024 2:00 PM Marek Bonilla MD Dermatology at [place] Arrive at: [facility] [address] [phone] Future Orders Complete By Expires Type and Screen Future Surgery, [facility] SAME DAY PROGRAM ONLY) [[id number] Custom] 05/11/2023 Process Instructions: This test is intended ONLY for patients with upcoming surgery for testing prior to the day of surgery obtained through the same day program (4V or SDP). For ALL OTHER PATIENTS, order a Type and Screen (YTX036) This order includes the physician order for an ABO Recheck if requested by the Blood Bank. Scheduling Instructions: Comments: Questions: Date of surgery: CBC (with Diff) [KWB644 Custom] 06/05/2023 12/05/2023 Process Instructions: INCLUDES: WBC, RBC, Hgb, Hct, Platelets, RBC Indices and Differential Scheduling Instructions: Comments: Questions: Comprehensive metabolic panel (non-fasting) [LAB17 Custom] 06/05/2023 08/20/2023 Process Instructions: INCLUDES: Calcium, T Protein, Albumin, AST, ALT, Alk Phos, T Bili, BUN, Creat, GFR, Glucose, Lytes. Scheduling Instructions: Comments: Questions: Echocardiogram Transthoracic [50389 CPT(R)] 06/05/2023 12/05/2023 Process Instructions: Scheduling Instructions: Questions: Where will study be performed?: [facility] Does the patient have Congenital Heart Disease?: Does patient require sedation?: GA rationale: EKG 12 Lead [34019 CPT(R)] 06/05/2023 12/05/2023 Process Instructions: Scheduling Instructions: Questions: Which location will this be performed?: [place] Is a rhythm strip needed?: No [facility] Devices [EQ161 Custom] As directed Process Instructions: Scheduling Instructions: Questions: Device Needed: WALKER (E0143) Patient Height (cm): 154.9 cm (5' 0.98) Patient Weight: 75.4 kg (166 lb 3.2 oz) Diagnosis: Unsteady gait when walking Referral to Cardiac Rehab [KNQ146 Custom] As directed Process Instructions: If no progress note charted, please enter Clinical details in comments. Scheduling Instructions: Questions: My question or request is: s/p TAVR. Cardiac rehab at [facility]. Referral to Home Health [REF34 Custom] As directed Process Instructions: If no progress note charted, please enter Clinical details in comments. Scheduling Instructions: Comments: DOCUMENTATION FOR VNA SERVICES PATIENT'S LOCATION: Purnima Thacker [address] [place] [address] [phone] (home) Funeral Service Practitioner/Embalmer's Name: Irineo and brother Raymond In discussion with the attending physician, it is certified that this patient is under his/her careand that MD, or an ASTRONAUTICAL ENGINEER, RESIDENT DOCTOR, or PA who is working directly with him/her, had a fbws-lc-ycyb encounter that meets the physician gwys-gf-tano encounter requirements with this patient on 05/22/2023. [...] for managing ADLs. HOME HEALTH CARE AGENCY: [facility]. [address] [facility] [address] PHONE: [phone] FAX: [phone] Start of care: Ideally 24-48 hours after [...] Acosta MD [address] / [facility] [phone] All VNA agencies which cover the area of patient's residence have been reviewed, either verbally joao writing, and patient has chosen the home health care agency noted. Questions: Disciplines Requested: Physical Therapy Occupational Therapy Discharge References/Attachments None Arrangements for VNA/home care: As above. (delete if no VNA) Signed: EKATERINA NAVARRETE [facility] Section of Cardiac Surgery Date: 05/22/2023 CC: Magdalena Acsota MD [place] Alberto maxwell MD [address] [place] [address] documented in this encounter Discharge Instructions * Patient Instructions* Vinod Juárez PA - 05/22/2023 9:32 AM EDT TAVR Discharge Instructions: Call your doctor if: You have a fever of greater than 101 degrees, shaking chills, if you develop redness or drainage from your procedure sites, or if you have questions. Please call your Engineering Instructor's office if you have any discharge or drainage from your procedural sites. Your Engineering Instructor, Dr. Antelmo Sharma and/or the Horse Show Manager may be reached at . Antibiotic prophylaxis: You will need to take antibiotics prior to many invasive tests and treatments, such as dental cleaning, which should be done every 6 months. Your primary care physician or your dentist can prescribe this medication. Please refer to the card with the [place] [employer] Guidelines for more information. You have been provided with a copy of this card. Please refer to the [place] Heart [employer] Guidelines for more information. Good [...] should resume a low fat, low cholesterol, [place] [employer] Diet Driving: No restrictions. Shower/Bath: You may shower daily. No baths, soaking, or swimming for the first week. Wound care: Wash the sites daily with soap and rinse well, pat dry. Assess for any signs of infection such as increased redness, pain, warmth or drainage. Please call your hatch tender's office if you have any discharge or drainage from your procedural sites. If there is a lot of swelling, apply mamta wraps during the day and remove at bedtime. Elevate your legs when you are sitting. Home oxygen therapy: N/A Follow up appointments: Please schedule a follow-up appointment with your PCP, Magdalena Acosta MD, or Primary Blocker Heated Metal Forms in ~ 7-10 days. You have a follow-up appointment with your Engineering Instructor, Dr. Antelmo Sharma, in 2 weeks with an EKG, Echo, and labs prior to your appointment. You will need follow-up with Nephrology, their office will arrange. Rxyr-Domnzy-rh interval: After initial 30 day follow-up appointment , all TAVR patients will follow-up again in one year with an echo. Cardiac Rehabilitation: Purnima Magalie Gallegol was seen today regarding participation in the outpatient Phase 2 Cardiac Rehabilitation at [facility]. The patient agrees to a referral [...] ins ( tef) Haven Ba, PT Pager: [phone] Physical Therapy Inpatient Rehabilitation Department * Nico [...] 0600 and on the weekends please page [phone]. * Jory Paniagua - 05/20/2023 3:52 PM [...] vomiting Last Bowel Movement: 05/20/23 Jory Paniagua Boom Boss * Tong Mike, OT - 05/20/2023 3:16 [...] Tube Placement Right 05/18/2023 Laure Ricks PA [facility] INTERVENTIONL RAD PRG CATH PLMT LEFT HEART CATH & ARTS W/INJ & ANGIO IMG S&I N/A 11/09/2022 CORONARY ANGIOGRAPHY; W [facility],POSSIBLE PCI (WRVU 5.6) performed by Mario Alberto Escobedo MD at [facility] CATH LABS PRG COMBINED RIGHT & LEFT HEART CATH W/INJ L VENTRICULOGRAPHY, IMG S&I N/A 05/12/2023 COMBINED RIGHT & LEFT HEART CATH,INC INJ FOR L VENTRICULOGRAPHY (WRVU 5.99) performed by Antelmo Sharma MD at [facility] CATH LABS PRO AORTOPLAS FOR SUPRAVALV STEN N/A 09/21/2016 @AORTOPLASTY FOR SUPRAVALVULAR STENOSIS (WRVU 29.33) performed by Alirio Hudson MD at [facility] MAIN OR PRO REPLACE AORTIC VALVE (TAVR/FEDERICO)PERC FEMORAL ARTERY APPROACH 05/12/2023 @TRANSCATHETER AORTIC VALVE REPLACEMENT (TAVR), PERCUTANEOUS FEMORAL (WRVU 22.47) performed by Alirio Hudson MD at [facility] CATH LABS PRO REPLACEMENT PROSTHETIC AORTIC VALVE OPEN W CARDIOPULMONARY BYPASS HOMOGRF/STENT N/A 09/21/2016 @REPLACE AORTIC VALVE, OPEN, W\CPB, W\PROSTHETIC VALVE (WRVU 41.32) performed by Alirio Hudson MD at [facility] MAIN OR Social History: Patient lives alone. Home Setup: Pt lives on one level with tub shower and three steps to enter. DME: none used CONTAINER FINISHING INSPECTOR Baseline ADL/Mobility: Independent with ADLs and IADLs. [...] WFL Vision & Perception: corrective lenses time buyer Communication: WFL Range of motion, strength, [...] Discharge planning. Total Minutes, Occupational Therapy: 28 ([id number]) OT Evaluation Code Rationale: Diagnosis & Pertinent Co-Morbidities affecting Plan of Care: see PMHx Occupational Profile & Client History: Brief Expanded Extensive x Assessment of Occupational Performance: 1-3 performance deficits 3-5 performance deficits x 5 + performance deficits Clinical Decision Making: Low Moderate High x Clinical decision making of moderate complexity using standardized patient assessment instrument and measurable assessment of functional outcome. Pager: [phone] TONG MIKE OT 05/20/2023 Occupational Therapy Rehabilitation [...] 0600 and on the weekends please page [phone]. * Rylie Rodriguez MD - 05/19/2023 3:59 [...] and plan. Cynthia Blackburn MD Nephrology Pager: [phone] * Diana Espino - 05/19/2023 1:49 PM EDT Backrest Assembler Encounter Note Patient Name: Purnima Thacker : [id number] MR#: [id number] Admit Date: 05/08/2023 9:14 AM Hospital Day [...] as stated. Total Minutes, Physical Therapy: 38 ([phone]) Henrik Navarrete PTA Pager: [phone] Physical Therapy Inpatient Rehabilitation Department * Nico [...] 0600 and on the weekends please page [phone]. * Laure Ricks PA - 05/19/2023 7:56 [...] Ricks PA-C Interventional Radiology IR Team Pager [phone] * Consuelo Espinoza RN - 05/18/2023 4:13 PM EDT ANGIO NURSING DATABASE Name: Purnima Thacker Date of : 1955 AGE: 67 y.o. Address: [address] [place] [address] (home) Mobile: No relevant phone numbers on [...] fraction I35.0 Mild coronary artery disease by [facility] 11/09/2022 I25.10 Heart failure [...] and plan. Cynthia Blackburn MD Nephrology Pager: [phone] * Magdalena Puri, SOFTWARE ADMINISTRATOR - 05/18/2023 10:51 AM EDT Images from the original note were not included. [facility] [place] [address] STRUCTURAL HEART DISEASE CONSULTATION NOTE PRIMARY CARE [...] stenosis. She is now status post TAVR Tquvn-am-Cshwp with a 23 mm Lai 3 THV 05/12/[address] Sharma. Preliminary findings: Successful right transfemoral TAVR Bdzfh-th-Qyfnp with a 23 mm Lai 3 THV. [...] ejection fraction Mild coronary artery disease by [facility] 11/09/2022 Heart failure with [...] tablet 81 mg 81 mg Oral Daily RussellMara ernandez APRN 81 mg at 05/18/23 0826 ondansetron (pf) (Zofran) (2 mg/mL) injection 4 mg 4 mg Intravenous Q8H PRN RussellMara ernandez APRN4 mg at 05/12/23 0736 pantoprazole EC (Protonix) tablet 40 mg 40 mg Oral Daily MaggieMara ernandez APRN 40 mg at 05/18/23 0826 Or pantoprazole (Protonix) injection 40 mg 40 mg Intravenous Daily RussellMara ernandez APRN 40 mg at 05/12/23 1004 senna-docusate (Pericolace) 8.6-50 mg per tablet 2 tablet 2 tablet Oral Daily MaggieMara ernandez APRN 2 tablet at 05/16/232111 bisacodyL (Dulcolax) suppository 10 mg 10 mg Rectal Daily PRN MaggieMara ernandez APRN melatonin tablet 6 mg 6 mg Oral Nightly PRN RussellMara ernandez APRN 6 mg at 05/17/232024 influenza vaccine adjuvanted (Adult 65 Yrs +) (FluAD Quad) (PF) IM injection 0.5 mL 0.5 mL Intramuscular Prior to discharge RussellMara ernandez APRN FAMILY HISTORY: No family history [...] stenosis. She is now status post TAVR Lomuy-iz-Nhnfc with a 23 mm Lai 3 THV [...] Magdalena Puri APRN Structural Heart Team Pager [phone] Team Office Please see addendum by Dr. Sharma for final plan and recommendations Associated attestation - Antelmo Sharma MD - 05/19/2023 10:52 PM EDT I have reviewed Magdalena Puri APRN's above history and I agree with the details as written. The assessment and plan were formulated in discussion with me and I agree with them as documented. Antelmo Sharma MD Pager [phone] * Nico Palacios PA - 05/18/2023 8:13 [...] 0600 and on the weekends please page [phone]. * Loli Hernandez, PT - 05/17/2023 5:27 [...] plan as stated. Time IN / OUT: 6724-8933 Total Minutes, Physical Therapy: 54 Billing Code: te-sx2, te-f, angely HERNANDEZ PT Pager: [phone] Physical Therapy Inpatient Rehabilitation Department * Cynthia [...] Well controlled. Cynthia Blackburn MD Nephrology Pager: [phone] * Mara Serrano, SOFTWARE ADMINISTRATOR - 05/17/2023 8:26 AM EDT Cardiac Surgery [...] 0600 and on the weekends please page [phone]. * Guerda Del Valle C - 05/16/2023 10:44 AM EDT Nutrition Services Note - Low Nutrition Acuity Purnima Thacker is a 67 y.o. female Reason for intervention: hospital day 9 Nutrition Plan: Continue diet order Encourage good PO Lasix and Zofran noted Added special serve: open containers Monitor weight Patient scheduled for a hospital day 9 nutrition evaluation. Clinical Biostatistics Director met with pt at bedside. Pt reports that her appetite and PO has much improved since admission. Denies nausea/vomiting or trouble chewing/swallowing. Clinical Biostatistics Director provided snack list but pt not interested in adding snacks at this time. Her only concern was that she is worried that she will eat too much which will cause too much pressure in her stomach. Clinical Biostatistics Director assured pt and suggested eating smaller but [...] Last Bowel Movement: 05/10/23 Guerda Del Valle Boom Boss * Vinod Juárez PA - 05/16/2023 10:19 [...] 0600 and on the weekends please page [phone]. * Michael Jeffers MD - 05/16/2023 8:11 AM EDT Images from the original note were not included. Hypertension-Nephrology Inpatient Follow-up Purnima Thacker [id number] 1955 ID: 67 y.o. old female seen [...] IRONSAT 12 (L) 05/16/2023 SFOLATE >20.0 07/03/2022 [id number] 07/03/2022 Lab Results Component Value Date [...] Dr. Ayoub. Please contact me at phone: [phone] or pager: [phone] with any questions. Michael Jeffers MD Nephrology [...] -Nephrology consulted, labs and renal US ordered -Minford removed, ambulated around the unit -bilateral pleural [...] 0600 and on the weekends please page [phone]. * Hortencia Cody MD - 05/15/2023 2:07 [...] not included. Hypertension-Nephrology Inpatient Follow-up Purnima Thacker [id number] 1955 ID: 67 y.o. old female seen [...] HGB 7.8 (L) 05/13/2023 SFOLATE >20.0 07/03/2022 [id number] 07/03/2022 Lab Results Component Value Date [...] Dr. Ayoub. Please contact me at phone: [phone] or pager: [phone] with any questions. Michael Jeffers MD Nephrology [...] last 720 hours. T/L/D Art ETT CVL Mcclusky ASSESSMENT, MANAGEMENT, and DECISION MAKIN y.o. female [...] outlined inthis evaluation. HAVEN BA, PT Pager: [phone] Physical Therapy Inpatient Rehabilitation Department Time IN / OUT: 4474-8498 Total time: Total Minutes, Physical Therapy: 30 [...] 0600 and on the weekends please page [phone]. * Antelmo Sharma MD - 05/14/2023 7:56 AM EDT Images from the original note were not included. [facility] [place] [address] STRUCTURAL HEART DISEASE CONSULTATION NOTE PRIMARY CARE [...] stenosis. She is now status post TAVR Ittfo-oh-Xyuil with a 23 mm Lai 3 THV 05/12/[address] Sharma. Preliminary findings: Successful right transfemoral TAVR Bbzyh-qa-Vwpko with a 23 mm Lai 3 THV. [...] perforation. Interval Events: - 05/12 Transferred to [facility] post- TAVR for pressor/inotropic support (Levo, [...] ejection fraction Mild coronary artery disease by [facility] 11/09/2022 Heart failure with [...] stenosis. She is now status post TAVR Lewxo-xm-Gkoow with a 23 mm Lai 3 THV 05/12/[address] Sharma. Janet TAVR case notable for coronary LAD protective MINNA. Status post TAVR, the patient was transferred to [facility] for pressor and inotropic support. Pressors weaned overnight 05/12. Cardiac indices by thermodilution remained >3 with continued Milrinone 0.125 mcg/kg/min prior to PAC removal. EKG todayNSR with stable MI/QRS intervals. Hemoglobin slowly down-trending (8.2-> 7.8-> 7.2). [...] Brody Kaplan APRN Structural Heart Team Pager [phone] Team Office Please see addendum by Dr. [...] exposure. Nephrology consultationtoday. Antelmo Sharma MD Pager [phone] * Antelmo Cardenas RN - 05/14/2023 5:18 AM EDT Pt AOx4, complaining of mild/moderate generalized pain (states her Meloxicam is effective at home) currently refusing prn oxycodone. NAEON, hemodynamically stable on Milrinone, Maps >65, ST in [id number]'s down to NSR with frequent multifocal PVC's. [...] from the original note were not included. [facility] [place] [address] STRUCTURAL HEART DISEASE PROGRESS NOTE PRIMARY CARE [...] stenosis. She is now status post TAVR Odjvf-kb-Asyvb with a 23 mm Lai 3 THV 05/12/[address] Sharma. Preliminary findings: Successful right transfemoral TAVR Sxqet-rw-Aqlot with a 23 mm Lai 3 THV. [...] ejection fraction Mild coronary artery disease by [facility] 11/09/2022 Heart failure with [...] stenosis. She is now status post TAVR Haknx-qs-Lyavm with a 23 mm Lai 3 THV 05/12/[address] Sharma. Janet TAVR case notable for coronary LAD protective MINNA. Status post TAVR, the patient was transferred to [facility] for pressor and inotropic support. Pressors weaned overnight. Cardiac indices by thermodilution remain greater than 3 with continued Milrinone 0.125 mcg/kg/min. EKG today NSR with stable MI/QRS intervals. Hemoglobin 7.8 today from 8.5, likely [...] Brody Kaplan APRN Structural Heart Team Pager [phone] Team Office Please see addendum by Dr. [...] DAPT moving forward. Antelmo Sharma MD Pager [phone] * Bonita Miguel PA - 05/13/2023 8:30 AM EDT Cardiac Surgery Progress Note Purnima Thacker is a 67 y.o. 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 PMH of s/p tissue AVR (2017), mixed connective tissue disease HTN, HLD, NICOLAS, diverticulosis, rosacea, essential tremor, and depression. 24h Events: From cathodic protection technician for above procedure Extubated at ~1600 [...] soft b/l, no evidence of hematoma. Tubes/Lines/Drains: Minford, RIJ, A-line, Art, PIV Assessment/Plan: 67 y.o. [...] 0600 and on the weekends please page [phone]. * Onelia Schwartz MD - 05/12/2023 1:44 [...] ejection fraction Mild coronary artery disease by [facility] 11/09/2022 Heart failure with [...] FiO2 weaned to 40%. 1105: ABG 7.34/42/73/22 5333-8279: SBT performed and passed on these settings [...] PCP: Magdalena Acosta MD PCP phone number: [phone] Date of Admission: 05/08/2023 ( Hospital Day [...] 1447 PHART -- 7.34* 7.34* -- -- WNT7NIR -- 30* 30* -- -- PO2ART -- 72* 81* -- -- NKC1QPL -- 16.0* 15.7* -- -- LACTATEVEN 2.4* 2.7* 2.7* 4.8* 2.9* VBG (Venous Blood Gas) Recent Labs 05/12/23 0700 05/12/238 05/12/2310505/11/23193905/11/23 144 LACTATEVEN 2.4* 2.7* 2.7* 4.8* 2.9* Mixed Venous Sat Recent Labs 05/12/23 0508 05/12/23 0321 05/12/23 0114 05/12/23 0030 T0PGEZ2 30.7 32.7 37.3 25.1 Objective: Vitals Last [...] questions please contact the health care management associate that requested your imaging first. Electronically signed by: ALIX RUVALCABA MD, [facility] ([phone]), at 05/10/2023 1:[address] Cardiac for [...] questions please contact the health care management associate that requested your imaging first. Electronically signed by: Cullen Narayanan MD, [facility] ([phone]), at 05/11/2023 4:[address] Angiogram Abdomen [...] questions please contact the health care management associate that requested your imaging first. Electronically signed by: Eileen Gomes MD, [facility] ([phone]), at 05/11/2023 2:42 PM XR Chest One [...] questions please contact the health care management associate that requested your imaging first. Chest [...] questions please contact the health care management associate that requested your imaging first. Assessment [...] and inotrope. She is planned for a byjhm-ee-dispe TAVR this morning, which should hopefully improve [...] FACP, FACC Section of Cardiovascular Medicine [facility] Evaluator Transfer Studentspurchasing administrative assistant [facility] [employer] [facility] * Noreen Deutsch RN - [...] ejection fraction Mild coronary artery disease by [facility] 11/09/2022 Heart failure with [...] 05/11/2023 4:11 PM EDT Reported off to SIGNALS COLLECTOR/ANALYST and pt transferred over in the bed for higher level of care. * Antelmo Sharma MD - 05/11/2023 9:45 AM EDT Images from the original note were not included. [facility] [place] [address] [address] STRUCTURAL HEART DISEASE CONSULTATION NOTE PRIMARY CARE [...] who had been referred for possible TAVR ykoxd-nt-tqpvo evaluation. Her primary symptoms are of dyspnea [...] otherwise negative. Ms. Thacker is originally from [place]. 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 She states [...] ejection fraction Mild coronary artery disease by [facility] 11/09/2022 Heart failure with [...] hour(s)) Lactate, whole blood, send to lab ([facility] Result Value Ref Range Lactate WB 3.1 (H) 0.5 - 2.2 mmol/L Heparin (unfractionated) Level Result Value Ref Range Heparin UFH Level 0.46 IU/mL Lactate, whole blood, send to lab ([facility] Result Value Ref [...] leads Confirmed by MD Harshil, Enrique Bell ([id number]) on 05/10/2023 8:11:46 AM Cardiac Cath 11/09/2022 [...] alert Dr. Hudson of her inpatient status, [place] primary cardiac surgeon. Based on recent clinic visit, tentative plan had been for TAVR JANET issa ferrera given her chronological age. Cardiac cath 11/09/2022 notable for non-obstructive coronary disease. TAVR CTAs planned for today. Will review her case with cardiac surgery to determine best timing and therapies for her valve intervention. Addendum 05/11/2023 6:48 PM Due to decompensating HFrEF, she was transferred to [facility] this afternoon for further management. TAVR CT imaging support for adequate ileofemoral access. Given her acute deterioration today, will planfor RTF TAVR on 05/12/2023. Brody Kaplan APRN Structural Heart Disease Pager [phone] Please see addendum by Dr. Sharma for [...] signed and dated. Antelmo Sharma MD Pager [phone] * Harini Lance MD - 05/11/2023 6:06 AM EDT Images from the original note were not included. Cardiology Progress Note Patient info: Name: Purnima Thacker : 1955 PCP: Magdalena Acosta MD PCP phone number: [phone] Date of Admission: 05/08/2023 ( Hospital Day [...] questions please contact the health care management associate that requested your imaging first. 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, 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) Mild coronary artery disease by [facility] 11/09/2022 Hyperlipidemia, unspecified NICOLAS [...] PCP: Magdalena Acosta MD PCP phone number: [phone] Date of Admission: 05/08/2023 ( Hospital Day [...] 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) Mild coronary artery disease by [facility] 11/09/2022 Hyperlipidemia, unspecified NICOLAS [...] PCP: Magdalena Acosta MD PCP phone number: [phone] Date of Admission: 05/08/2023 ( Hospital Day [...] Gas) No results found for: PHART, PO2ART, OAB1ZFO, GZA5BNT Microbiology: Microbiology Results (Last 30 days) No [...] PPx: Diet: Daily Healthy Menu Choices/Cardiac diet ([facility]D[facility]) Lines: Peripheral IV Line - Single Lumen [...] 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) Mild coronary artery disease by [facility] 11/09/2022 Hyperlipidemia, unspecified NICOLAS [...] fraction I35.0 Mild coronary artery disease by [facility] 11/09/2022 I25.10 Heart failure with reduced ejection fraction due to heart valve disease I50.20, I38 Cardiogenic shock R57.0 S/P TAVR (transcatheter aortic valve replacement) Z95.2 Past Medical History: Diagnosis Date Anemia Past Surgical History: Procedure Laterality Date PRG CATH PLMI LEFT HEART CATH & ARTS W/INJ & ANGIO IMG S&I N/A 11/09/2022 CORONARY ANGIOGRAPHY; W [facility],POSSIBLE PCI (WRVU 5.6) performed by Mario Alberto Escobedo MD at [facility] CATH LABS PRO AORTOPLAS FOR SUPRAVALV STEN N/A 09/21/2016 @AORTOPLASTY FOR SUPRAVALVULAR STENOSIS (WRVU 29.33) performed by Alirio Hudson MD at [facility] MAIN OR PRO REPLACEMENT PROSTHETIC AORTIC VALVE OPEN W CARDIOPULMONARY BYPASS HOMOGRF/STENT N/A 09/21/2016 @REPLACE AORTIC VALVE, OPEN, W\CPB, W\PROSTHETIC VALVE (WRVU 41.32) performed by Alirio Hudson MD at [facility] MAIN OR Social History and Habits: Social [...] fraction I35.0 Mild coronary artery disease by [facility] 11/09/2022 I25.10 Heart failure with reduced ejection fraction due to heart valve disease I50.20, I38 Cardiogenic shock R57.0 S/P TAVR (transcatheter aortic valve replacement) Z95.2 Past Medical History: Diagnosis Date Anemia Past Surgical History: Procedure Laterality Date PRG CATH PLMI LEFT HEART CATH & ARTS W/INJ & ANGIO IMG S&I N/A 11/09/2022 CORONARY ANGIOGRAPHY; W [facility],POSSIBLE PCI (WRVU 5.6) performed by Mario Alberto Escobedo MD at [facility] CATH LABS PRO AORTOPLAS FOR SUPRAVALV STEN N/A 09/21/2016 @AORTOPLASTY FOR SUPRAVALVULAR STENOSIS (WRVU 29.33) performed by Alirio Hudson MD at [facility] MAIN OR PRO REPLACEMENT PROSTHETIC AORTIC VALVE OPEN W CARDIOPULMONARY BYPASS HOMOGRF/STENT N/A 09/21/2016 @REPLACE AORTIC VALVE, OPEN, W\CPB, W\PROSTHETIC VALVE (WRVU 41.32) performed by Alirio Hudson MD at [facility] MAIN OR Social History and Habits: Social [...] days, which prompted her to present to [employer]. She also endorses some intermittent retrosternal chest pain with exertion.She endorses some dizziness with exertion, but has not gotten faint or passed out. At [employer] she was noted to be afebrile, blood pressure 105/64, HR 120s, satting 95% on 2L NC. Labs from [facility] are below, of note she had [...] 89/59, which prompted the transfer to us. [facility] labs: CBC - Hgb 10.5 CMP - Cr 1.1 BNP 30127 HsTrop 1358 Lactate 1.6 D-dimer 1183 Interval History Patient was admitted to [facility] due to concern on low BP [...] Klaudia Reid MD Internal Medicine PGY-1 Pager [phone], M1-S1 Service Associated attestation - Juan Luis Gonzalez MD - 05/08/2023 10:00 PM EDT Cardiology Attending Addendum Active Hospital Problems Diagnosis Symptomatic severe aortic stenosis with low ejection fraction Heart failure with reduced ejection fraction due to heart valve disease Mild coronary artery disease by [facility] 11/09/2022 Hyperlipidemia, unspecified History [...] PCP: Magdalena Acosta MD PCP phone number: [phone] Date of Admission: 05/08/2023 ( Hospital Day 0 days ) Attending:Enrique Chua MD ID: Purnima Thacker is a 67 y.o. female w/ PMH of s/p bioprosthetic AVR in 2016 with recent concern for severe restenosis, HTN, HLD, mixed connective tissue disease, who presents in transfer from [facility] with worsening BONILLA and weight gain [...] four days, which promptedher to present to [employer]. She also endorses some intermittent retrosternal chest pain with exertion. She endorses some dizziness with exertion, but has not gotten faint or passed out. At [facility] she was noted to be afebrile, blood pressure 105/64, HR 120s, satting 95% on 2L NC. Labs from [facility] are below, of note she had [...] 89/59, which prompted the transfer to us. [facility] labs: CBC - Hgb 10.5 CMP - Cr 1.1 BNP 84878 HsTrop 1358 Lactate 1.6 D-dimer 1183 Vasoactive [...] tissue disease, who [facility] B[facility]A and weight gain concerning [...] #Routine Diet: Daily Healthy Menu Choices/Cardiac diet ([facility]) DVT Prophylaxis: heparin gtt GI Prophylaxis: none [...] to the planned procedure. Hand Hygiene: The video surveillance technician did perform hand hygiene prior to [...] Successful arterial line placement. Crispin Timmons MD Horse Show Manager Associated attestation - Onelia Schwartz MD [...] (flow was non-pulsatile) and appearance of blood. Minford-Marily catheter was placed and locked at 55 [...] information for follow-up [facility], [place] [address] [place] [address] Cardiac Rehab, [place] [address] [place] [address] [facility], [place] [address] [place] [address] Transportation: family or friend will provide *Brother [...] Type: *No Product type* / Secondary Insurance: [employer] [place] Prescription Coverage: Yes This plan was formulated with input from patient, family (please identify family/friend involved ifapplicable) and team. All are in agreement with plan. Aliza Martino MSN-Ed, RN ACM cable lacer Office of Care Management Pager #[phone] * Plan of Care - Favian Mckeon [...] Lana Chaudhary RN - 05/21/2023 4:46 PM EDTSumcitizens baptist: [facility] referral OFFICE OF CARE MANAGEMENT [...] Type: *No Product type* / Secondary Insurance: [employer] [facility] [place] Last Physical Therapy Recommendation: [...] describing our affiliations within the [facility] and educate about their right to choose where referrals are sent. provide a list of Home Health Agencies / Durable Medical Equipment vendors which serve their preferred geographic area. They have requested referrals to: [facility] [address] [place] [address] [facility] @ [place], [place] Note routed to a Push Button Switch Assembler who will communicate referrals to facilities and provide any required information. Transportation: family or friend will provide *Brother Raymond on Tuesday 05/22 at 1000 Barriers to discharge: Does not have home 22/02 assist available until tomorrow Tuesday 05/22 Plan going forward: Discharge home into the 22/02 home care of brother Raymond with [facility] and [facility] PT/OT services on Tuesday 05/22 [...] INTERVENTIONAL RADIOLOGY BRIEF PROCEDURE NOTE Patient Name: Purniam Thacker : 1955 Case Date: 05/18/2023 Operators: Attending: All Staff: Staff Role Juanita Almaguer Chemical Dependency Counselor Laure Ricks PA Physician Soap Tender Magdalena Rodriguez RN Radiology Nurse Consuelo Espinoza general ii farmworker Nurse Post-operative diagnosis/Indication: Right pleural effusion Name [...] Type: *No Product type* / Secondary Insurance: [employer] [facility] [place] Last Physical Therapy Recommendation: group home facility, swing bed rehabilitation facility with to be determined Last Occupational Therapy Recommendation: with Plan for discharge is: Prison Facility / Swing Outpatient Agency/Support Group Needs: None Agency Referrals: Based on discussions with the multi-disciplinary healthcare team, the patient would benefit from SNF / Swing level of care at discharge. I have met with the patient to: discuss discharge planning needs. provide the [facility], Office of Care Management letter from the Community Ambassador pertaining to rehab referrals. provide a letter describing our affiliations within the [facility] and educate about their right to choose where referrals are sent. provide the CMS Star Quality Rating handout. review the different levels of rehab including SNF, swing, and acute. provide a list of facilities within their preferred geographic area. request that they provide at least three choices for referral. They have requested referrals to: [facility] [address] [place] [address] [facility] ([facility]) [address] [place] [address] (Accepts pts only after exhausting all other local SNF options) [facility] (Swing) ([facility]) [address] [place] [address] PHONE: [phone] FAX: [phone] [facility] ([facility]) [facility]) [address] [address] PHONE: [phone] FAX: [phone] Note routed to a Push Button Switch Assembler who will communicate referrals to facilities and [...] Crenshaw RN - 05/17/2023 10:25 AM EDT [facility] CARDIAC REH[facility]ILITATION Purnima Thacker was seen today regarding participation in the outpatient Phase 2 Cardiac Rehabilitation at [facility]. The patient agrees to a referral [...] from the original note were not included. [facility] NEPHROLOGY/HYPERTENSION CONSULT NOTE PATIENT: Purnima Thacker [...] in her course. She ultimately underwent a gygao-qu-jelkl procedure on and tolerated it well (see [...] 1423 05/12/23 1105 PHART 7.39 7.37 7.34* VQW2DQL 33* 36 42 PO2ART 101 102 73* ZGQ0JMO 19.5* 20.4 22.1 LACTATEVEN 1.5 1.8 2.8* NUG8PGB 40 40 40 PFRATIOART2 252 255 182 VBG (Venous Blood Gas) Recent Labs 05/12/23 1557 05/12/23 1423 05/12/23 1105 LACTATEVEN 1.5 1.8 2.8* Mixed Venous Sat Recent Labs 05/12/23 1425 05/12/23 0508 05/12/23 0321 L2LFAJ3 59.9 30.7 32.7 LFT's: Recent Labs 05/14/23 0110 05/13/23 0115 05/12/23 0600 BILITOT 0.4 0.5 0.9 BILIDIR -- 0.3 -- ALBUMIN 3.6 3.0* 3.5 ALKPHOS 86 85 100 ALT 437* 903* 1,174* AST 319* 792* 1,435* No results found for: UPROTCREAT No results found for: TPROTEINPEP, ALBELECT No results found for: MICROALBUR, SDYL99CWV No results found for: HA1C Lab Results Component Value Date CALCIUM 8.5 05/14/2023 PHOS 4.7 (H) 05/08/2023 No results found for: 25OHVITD MICROBIOLOGY: ProcedureComponentValueUnitsDate/TimeUrine culture [[id number]]Collected: 05/11/231921Lab Status: Final resultSpecimen: Clean Catch UrineUpdated: [...] consulted for assessment if this patient needs FUNDRAISING MANAGER. Atthis time, we can likely hold off on FUNDRAISING MANAGER. Her volume status appears sufficient and her metabolic kanwal angements with mild acidosis is not too profound. Patient does not have significant uremic symptoms. We can hold off for today, but the patient is a high risk candidate for needing FUNDRAISING MANAGER in future daysespecially if her Cr curve trends the direction it is for the next several days. S/p Gcufd-in-Cssmd TF TAVR: Management per cardiology. On milrinone gtt. PLAN: - Please obtain following diagnostics: renal US, urinalysis, urine prot/Cr ratio, urine albumin/Cr ratio, CK, uric acid, serum osmol, daily VBGs - No acute indications for FUNDRAISING MANAGER/dialysis. We will keep close eye on Cr trend, volume status, and metabolics to ensure patient still does not need FUNDRAISING MANAGER as she ensues intrinsic renal recovery [...] M.H.Katherine., M.A. PGY-V Nephrology-Hypertension Fellow Page # [phone] [facility] [address] 2nd floor, Duck Operator [address] [place] [address] * Care Management - Mario Alberto Olmos [...] for a TAVR at 730. Returned to [facility] at 0945. Was intubated in the cathodic protection technician due to agitation. Maintained bedrest for [...] Operative Note Patient Name: Purnima Thacker : [id number] MR#: [id number] Case Date: 05/12/2023 Surgeon: Surgeon(s) and Role: [...] procedure Note: Patient Name: Purnima Thacker : [id number] MR#: [id number] Case Date: 05/12/2023 Operators Surgeon: Surgeon(s) and [...] main with 4.0 x 30 mm Resolute Calloway Drug Eluting Stent Perclose x1 + Angio-seal 8 Fr x1, RFA Manual pressure, LFA Manual pressure, LFV Endotracheal intubation (performed by cardiac anesthesia) Preliminary findings: Successful right transfemoral TAVR Cforg-vs-Afdls with a 23 mm Lai 3 THV. [...] MD, M.Sc. Structural Heart Disease Fellow Pager :[phone] Antelmo Sharma MD Pager [phone] * Op Note - Alirio Hudson MD - 05/12/2023 7:37 AM EDT Preop Diagnosis: Severe aortic stenosis, symptomatic. Postop Diagnosis: Same. Procedure: Transfemoral TAVR procedure with 23mm valve. Surgeon: Alirio Hudson M.D. Blocker Heated Metal Forms: Danny CULP Procedure: The patient was taken to the cathodic protection technician. The patient had monitored anesthesia care. 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 [facility] [place] [address] [address] STRUCTURAL HEART DISEASE CONSULTATION NOTE PRIMARY CARE [...] who had been referred for possible TAVR altbk-my-nxvhp evaluation. Her primary symptoms are of dyspnea [...] otherwise negative. Ms. Thacker is originally from [place]. 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 PROBLEM LIST: Patient Active Problem List Diagnosis Symptomatic severe aortic stenosis with low ejection fraction Mild coronary artery disease by [facility] 11/09/2022 Heart failure with [...] hour(s)) Lactate, whole blood, send to lab ([facility] Result Value Ref [...] leads Confirmed by MD Harshil, Enrique Bell ([id number]) on 05/10/2023 8:11:46 AM Assessment and Plan: [...] alert Dr. Hudson of her inpatient status, [place] primary cardiac surgeon. Based on recent clinic [...] Antelmo Sharma MD Structural Heart Disease Pager [phone] * Plan of Care - Sarahi Nice RN - 05/10/2023 3:55 AM EDTSumavis: RN Note and Care Plan Sarahi Nice RN assumed care of pt at time of their arrival to room 362 from [facility]. Pt voices shortness of breath at [...] listening utilized Taken 05/08/20231999 by Alivia Kauffman food broker/Support System Care: self-care encouraged support provided Problem: [...] Transfer from another hospital Location: admitted from [facility] Reason for Hospitalization: Critical aortic stenosis, [...] receiving care in [place] must abide by [place] law. The hierarchy [...] (i) The agent with financial power of environmental attorney or a conservator appointed in accordance [...] confirmed as: [address] [place] [place] [address] Social & Family Supports: All names listed [...] Prescription Coverage: Yes Preferred Pharmacy: updated to [facility] in [facility] Status: Patient is a : No Primary Care Provider confirmed: Magdalena Acosta MD [phone] Patient/Caregiver Goals of Treatment: Potential Needs for [...] transition of care planning. Alie Bradshaw RN, Pager-[phone] * Plan of Care - Emily Lucero RN - 05/08/2023 2:54 PM EDT OUTCOME EVALUATION NOTE: OUTCOME SUMMARY: Pt arrived from [facility]. A&O, no c/o pain or SOB. [...] at [facility] Hematology Oncology [address] [place] [id number] 05/12/2024 10:00 AM EDT Office Visit [place] [address] Markel Borjas MD [facility] [address] HEMATOLOGY [place] [address] 03/01/2025 4:15 PM EDT Office Visit Dermatology at [address] [address] Marek Bonilla MD [address], [place] [address] Scheduled Referrals Name Type Priority Associated Diagnoses [...] Heart Cath W/Inj L Ventriculography, Img S&I ([id number]) 05/12/2023 7:37 AM EDT Aortic valve stenosis, [...] EST Narrative 07/08/2023 12:26 PM EST [address] [place] [address] ? Echocardiogram Report Name: PURNIMA THACKER ?Study Date: 07/08/2023 10:31 AMBP: 118/60 mmHg ? Patient Location: 4A : 1955 ? Height: 155 cm ? Account: [id number] Age: 67 yrs ? Weight: 74 kg Gender: Female ?BSA: 1.7 m2 Ordering Physician: ALIRIO HUDSON Referring Physician: VINOD JUÁREZ Performed By: Felicia Norris RODOLFO Reason For Study: S/P TAVR Exam Location: [facility]. Interpretation Summary Left ventricular systolic function is [...] no significant change (post-procedure). Procedure Limited - 37573. Doppler - 82699. Color Doppler - 10124. Satisfactory quality. This study is limited because [...] Note Lee Kincaid MD - 07/08/2023 [address] [place] [address] Echocardiogram Report Name: PURNIMA THACKER Study Date: 12/07/134761:31 AMBP: 118/60 mmHg Patient Location: : 1955 Height: 155 cm Account: [id number] Age: 67 yrs Weight: 74 kg Gender: Female BSA: 1.7 m2 Ordering Physician: ALIRIO HUDSON Referring Physician: VINOD JUÁREZ Performed By: Felicia Norris RDCS Reason For Study: S/P TAVR Exam Location: [facility]. Interpretation Summary Left ventricular systolic function is [...] is nosignificant change (post-procedure). Procedure Limited - 63555. Doppler - 30041. Color Doppler - 59991. Satisfactoryquality. This study is limited because of [...] EST) Glucose 93 65 - 199 mg/dL [facility] Comment:Diabetes: >=200 mg/d L plus symptoms Blood Urea Nitrogen 19(H) 8 - 18 mg/dL [facility] Creatinine 0.81 0.70 - 1.20 mg/dL [facility] Sodium 142 135 - 145 mmol/L [facility] Potassium 3.8 3.5 - 5.0 mmol/L [facility] Comment: Please note: ??Patients with WBC >100,000 may have falsely elevated Potassium levels. ??For accurate Potassium quantification in these patients send serum separator tube (gold top) for subsequent determinations. ??Contact the Clinical Chemistry Laboratory if there are any questions. Chloride 104 98 - 107 mmol/L [facility] Carbon Dioxide 26 22 - 31 mmol/L [facility] Anion Gap 12 5 - 15 mmol/L [facility] Calcium 10.2 8.5 - 10.5 mg/dL [facility] Protein, Total 7.4 6.1 - 8.0 g/dL [facility] Albumin 4.1 3.2 - 5.2 g/dL [facility] Aspartate Aminotransferase 24 0 - 30 unit/L [facility] Alanine Aminotransferase 12 0 - 30 unit/L [facility] Alkaline Phosphatase 93 35 - 105 unit/L [facility] Bilirubin, Total 0.3 0.2 - 1.3 mg/dL [facility] Est Glomerular Filtration Rate 80 >=60 mL/min/1. 73 m?? [facility] Comment: This patient's estimated [...] Lab Alirio Hudson MD CHEMISTRY ORDERABLE S [facility] [place] [address] * (ABNORMAL) Basic Metabolic Panel (non-fasting) (05/22/2023 3:57 AM EDT) Glucose 88 65 - 199 mg/dL [facility] Comment:Diabetes: >=200 mg/d L plus symptoms Blood Urea Nitrogen 21(H) 8 - 18 mg/dL [facility] Creatinine 0.69(L) 0.70 - 1.20 mg/dL [facility] Sodium 136 135 - 145 mmol/L [facility] Potassium 3.6 3.5 - 5.0 mmol/L [facility] Comment: Please note: ??Patients with WBC >100,000 may have falsely elevated Potassium levels. ??For accurate Potassium quantification in these patients send serum separator tube (gold top) for subsequent determinations. ??Contact the Clinical Chemistry Laboratory if there are any questions. Chloride 102 98 - 107 mmol/L [facility] Carbon Dioxide 23 22 - 31 mmol/L [facility] Anion Gap 11 5 - 15 mmol/L [facility] Calcium 8.6 8.5 - 10.5 mg/dL [facility] Est Glomerular Filtration Rate 95 >=60 mL/min/1. 73 m?? [facility] Comment: This patient's estimated [...] Lab Mara Maggie ANURAG CHEMISTRY ORDERABL ES [facility] [place] [address] * (ABNORMAL) Basic Metabolic Panel (non-fasting) (05/21/2023 5:06 AM EDT) Glucose 87 65 - 199 mg/dL [facility] Comment:Diabetes: >=200 mg/d L plus symptoms Blood Urea Nitrogen 25(H) 8 - 18 mg/dL [facility] Creatinine 0.84 0.70 - 1.20 mg/dL [facility] Sodium 136 135 - 145 mmol/L [facility] Potassium 3.6 3.5 - 5.0 mmol/L [facility] Comment: Please note: ??Patients with WBC >100,000 may have falsely elevated Potassium levels. ??For accurate Potassium quantification in these patients send serum separator tube (gold top) for subsequent determinations. ??Contact the Clinical Chemistry Laboratory if there are any questions. Chloride 102 98 - 107 mmol/L [facility] Carbon Dioxide 26 22 - 31 mmol/L [facility] Anion Gap 8 5 - 15 mmol/L [facility] Calcium 8.9 8.5 - 10.5 mg/dL [facility] Est Glomerular Filtration Rate 76 >=60 mL/min/1. 73 m?? [facility] Comment: This patient's estimated [...] Comment Spec In Lab [facility] SOFTWARE ADMINISTRATOR CHEMISTRY ORDERABL ES Performing Organization Address City/[facility]/ZIP Co de Phone Number [facility] [place] [address] * Lavender Tube HOLD (05/20/2023 2:52 AM EDT) Lavender Hold Sample in lab. [facility] Blood Venous Draw / Unknown 05/20/2023 2:52 AM EDT 05/20/2023 3:04 AM EDT [facility] SOFTWARE ADMINISTRATOR HEMATOLOGY ORDERAB LES Performing Organization Address City/[facility]/ZIP Co de Phone Number [facility] [place] [address] * (ABNORMAL) Basic Metabolic Panel (non-fasting) (05/20/2023 2:52 AM EDT) Glucose 152 65 - 199 mg/dL [facility] Comment:Diabetes: >=200 mg/d L plus symptoms Blood Urea Nitrogen 33(H) 8 - 18 mg/dL [facility] Creatinine 0.82 0.70 - 1.20 mg/dL [facility] Sodium 137 135 - 145 mmol/L [facility] Potassium 3.7 3.5 - 5.0 mmol/L [facility] Comment: Please note: ??Patients with WBC >100,000 may have falsely elevated Potassium levels. ??For accurate Potassium quantification in these patients send serum separator tube (gold top) for subsequent determinations. ??Contact the Clinical Chemistry Laboratory if there are any questions. Chloride 99 98 - 107 mmol/L [facility] Carbon Dioxide 22 22 - 31 mmol/L [facility] Anion Gap 16(H) 5 - 15 mmol/L [facility] Calcium 9.0 8.5 - 10.5 mg/dL [facility] Est Glomerular Filtration Rate 78 >=60 mL/min/1. 73 m?? [facility] Comment: This patient's estimated [...] Lab Mara Serrano APRN CHEMISTRY ORDERABL ES [facility] [place] [address] * (ABNORMAL) Potassium (05/20/2023 2:52 AM EDT) Potassium 3.4(L) 3.5 - 5.0 mmol/L [facility] Comment: Please note: ??Patients with WBC >100,000 may have falsely elevated Potassium levels. ??For accurate Potassium quantification in these patients send serum separator tube (gold top) for subsequent determinations. ??Contact the Clinical Chemistry Laboratory if there are any questions. Blood 05/20/2023 2:52 AM EDT 05/20/2023 3:03 AM EDT Narrative Resulting Agency Comment Spec In Lab Mara Serrano SOFTWARE ADMINISTRATOR CHEMISTRY ORDERABL ES [facility] [place] [address] * XR Chest PA & Lateral (Generic) [...] questions please contact the health care management associate that requested your imaging first. ? [...] have questions please contactthe health care management associate that requested your imaging first. Electronically signed by: Chyna Johnson MD, [facility]([phone]), at 05/19/2023 2:19 PM Alirio Hudson MD IMG DX ORDERABLES * (ABNORMAL) Basic Metabolic Panel (non-fasting) (05/19/2023 5:49 AM EDT) Glucose 93 65 - 199 mg/dL [facility] Comment:Diabetes: >=200 mg/d L plus symptoms Blood Urea Nitrogen 45(H) 8 - 18 mg/dL [facility] Creatinine 1.02 0.70 - 1.20 mg/dL [facility] Sodium 138 135 - 145 mmol/L [facility] Potassium 3.9 3.5 - 5.0 mmol/L [facility] Comment: Please note: ??Patients with WBC >100,000 may have falsely elevated Potassium levels. ??For accurate Potassium quantification in these patients send serum separator tube (gold top) for subsequent determinations. ??Contact the Clinical Chemistry Laboratory if there are any questions. Chloride 102 98 - 107 mmol/L [facility] Carbon Dioxide 26 22 - 31 mmol/L [facility] Anion Gap 10 5 - 15 mmol/L [facility] Calcium 9.7 8.5 - 10.5 mg/dL [facility] Est Glomerular Filtration Rate 60 >=60 mL/min/1. 73 m?? [facility] Comment: This patient's estimated [...] Resulting Agency Comment Spec In Lab [facility] Performing Organization Address City/State/[facility] Co de Phone Number [facility] [place] [address] * IR Chest Tube Placement Right (05/18/2023 [...] Panel (non-fasting) (05/18/2023 2:54 AM EDT) Pathologist [facility] Glucose 95 65 - 199 mg/dL [facility] Comment:Diabetes: >=200 mg/d L plus symptoms Blood Urea Nitrogen 71(H) 8 - 18 mg/dL [facility] Comment:result rechecked-[facility] Creatinine 1.64(H) 0.70 - 1.20 mg/dL [facility] Comment:result rechecked-[facility] Sodium 137 135 - 145 mmol/L [facility] Potassium 3.7 3.5 - 5.0 mmol/L [facility] Comment: Please note: ??Patients with WBC >100,000 may have falsely elevated Potassium levels. ??For accurate Potassium quantification in these patients send serum separator tube (gold top) for subsequent determinations. ??Contact the Clinical Chemistry Laboratory if there are any questions. Chloride 100 98 - 107 mmol/L [facility] Carbon Dioxide 24 22 - 31 mmol/L [facility] Anion Gap 13 5 - 15 mmol/L [facility] Calcium 9.7 8.5 - 10.5 mg/dL [facility] Est Glomerular Filtration Rate 34(L) >=60 [...] Agency Comment Spec In Lab Marakatherine Serrano SOFTWARE ADMINISTRATOR CHEMISTRY ORDERABL ES [facility] [place] [address] * XR Chest PA & Lateral (Generic) [...] questions please contact the health care management associate that requested your imaging first. ? Electronically signed by: Ghassan Reyes MD, [facility] ??([phone]), at 05/17/2023 11:46 AM Narrative 05/17/2023 11:46 [...] have questions please contactthe health care management associate that requested your imaging first. Electronically signed by: Ghassan Reyes MD, [facility]([phone]), at 05/17/2023 11:46 AM Alirio Hudson MD IMG DX ORDERABLES * (ABNORMAL) Comprehensive metabolic panel (non-fasting) (05/17/2023 4:35 AM EDT) Glucose 89 65 - 199 mg/dL [facility] Comment:Diabetes: >=200 mg/d L plus symptoms Blood Urea Nitrogen 97(H) 8 - 18 mg/dL [facility] Creatinine 2.97(H) 0.70 - 1.20 mg/dL [facility] Comment:result rechecked-JSJ Sodium 135 135 - 145 mmol/L [facility] Potassium 4.1 3.5 - 5.0 mmol/L [facility] Comment: Please note: ??Patients with WBC >100,000 may have falsely elevated Potassium levels. ??For accurate Potassium quantification in these patients send serum separator tube (gold top) for subsequent determinations. ??Contact the Clinical Chemistry Laboratory if there are any questions. Chloride 97(L) 98 - 107 mmol/L [facility] Carbon Dioxide 22 22 - 31 mmol/L [facility] Anion Gap 16(H) 5 - 15 mmol/L [facility] Calcium 9.6 8.5 - 10.5 mg/dL [facility] Protein, Total 6.5 6.1 - 8.0 g/dL [facility] Albumin 3.7 3.2 - 5.2 g/dL [facility] Aspartate Aminotransferase 58(H) 0 - 30 unit/L [facility] Alanine Aminotransferase 66(H) 0 - 30 unit/L [facility] Alkaline Phosphatase 86 35 - 105 unit/L [facility] Bilirubin, Total 0.6 0.2 - 1.3 mg/dL [facility] Est Glomerular Filtration Rate 17(L) >=60 mL/min/1. 73 m?? [facility] Comment: This patient's estimated [...] ORDERABLE S Performing Organization Address [facility] Co de Phone Number [facility] [place] [address] * Potassium (05/16/2023 11:15 PM EDT) Potassium 3.7 3.5 - 5.0 mmol/L [facility] Comment: Please note: ??Patients [...] ORDERABLE S Performing Organization Address [facility] Co de Phone Number [facility] [place] [address] * Magnesium (05/16/2023 5:22 PM EDT) Magnesium 0.96 0.69 - 1.07 mmol/L [facility] Blood 05/16/2023 5:22 PM EDT 05/16/2023 5:27 PM EDT Narrative Resulting Agency Comment Spec In Lab Alirio Hudson MD CHEMISTRY ORDERABLE S Performing Organization Address [facility] Co de Phone Number [facility] [place] [address] * (ABNORMAL) Basic Metabolic Panel (non-fasting) (05/16/2023 5:22 PM EDT) Glucose 106 65 - 199 mg/dL [facility] Comment:Diabetes: >=200 mg/d L plus symptoms Blood Urea Nitrogen 103(H) 8 - 18 mg/dL [facility] Creatinine 3.91(H) 0.70 - 1.20 mg/dL [facility] Comment:result rechecked-imm Sodium 132(L) 135 - 145 mmol/L [facility] Potassium 3.6 3.5 - 5.0 mmol/L [facility] Comment: Please note: ??Patients with WBC >100,000 may have falsely elevated Potassium levels. ??For accurate Potassium quantification in these patients send serum separator tube (gold top) for subsequent determinations. ??Contact the Clinical Chemistry Laboratory if there are any questions. Chloride 92(L) 98 - 107 mmol/L [facility] Carbon Dioxide 22 22 - 31 mmol/L [facility] Anion Gap 18(H) 5 - 15 mmol/L [facility] Calcium 9.7 8.5 - 10.5 mg/dL [facility] Est Glomerular Filtration Rate 12(L) >=60 mL/min/1. 73 m?? [facility] Comment: This patient's estimated [...] Lab Alirio Hudson MD CHEMISTRY ORDERABLE S [facility] [place] [address] * (ABNORMAL) Potassium (05/16/2023 11:43 AM EDT) Potassium 3.3(L) 3.5 - 5.0 mmol/L [facility] Comment: Please note: ??Patients [...] MD CHEMISTRY ORDERABLE S Performing Organization Address City/[facility]/ZIP Co de Phone Number [facility] [place] [address] * (ABNORMAL) Ferritin (05/16/2023 4:41 AM EDT) Ferritin 1,813(H) 30 - 400 ng/mL [facility] Comment: Pediatric reference ranges not verified at [facility], interpret with caution. Reference ranges for females greater than 50 years of age approach values for men, i.e., 30-400 ng/mL. Blood 05/16/2023 4:41 AM EDT 05/16/2023 4:54 AM EDT Narrative Resulting Agency Comment Spec In Lab Kristopher Ayoub MD CHEMISTRY ORDERABLES Performing Organization Address City/[facility]/ZIP Co de Phone Number [facility] [place] [address] * (ABNORMAL) PTH (05/16/2023 4:41 AM EDT) [facility] Parathyroid Hormone 120(H) 15 - 65 pg/mL [facility] Blood 05/16/2023 4:41 AM EDT 05/16/2023 4:54 AM EDT Narrative Resulting Agency Comment Spec In Lab Kristopher Ayoub MD CHEMISTRY ORDERABLES Performing Organization Address City/[facility]/ZIP Co de Phone Number [facility] [place] [address] * Vitamin D, 25-Hydroxy (05/16/2023 4:41 AM EDT) [facility] Vitamin D Total 25 OH 33 21 - 100 ng/mL [facility] Vit D Interp Sufficient [facility] Blood 05/16/2023 4:41 AM EDT 05/16/2023 4:54 AM EDT Narrative Resulting Agency Comment Spec In Lab Kristopher Ayoub MD CHEMISTRY ORDERABLES [facility] [place] [address] * (ABNORMAL) Blood Gas Venous ([facility]) (05/16/2023 4:22 AM EDT) pH, Venous 7.41 7.32 - 7.42 [facility] PCO2, Venous 32(L) 41 - 51 mmHg [facility] PO2, Venous 73(H) 25 - 40 mmHg [facility] Bicarbonate, Venous 19.6 mmol/L [facility] Base Excess, Venous -5.1 mmol/L [facility] Hgb Blood Gas 9.7(L) 11.7 - 15.5 g/dL [facility] Oxyhemoglobin, Venous 92.8 % [facility] Carboxyhemoglob in, Venous 0.1 % [facility] Comment: Nonsmokers: 0.5-1.5% COHB Smokers: Variable, but usually less than 10% Toxic: 20-30% COHB Lethal: Greater than 60% COHB Methemoglobin, Venous 0.3 <=1.5 % [facility] Na Whole Blood 130(L) 135 - 145 mmol/L [facility] K Whole Blood 3.7 3.5 - 5.0 mmol/L [facility] Comment: Please note: Patients with WBC >100,000 may have falsely elevated Potassium levels. Contact the Clinical Chemistry Laboratory if there are any questions. ICa Whole Blood 1.15 1.15 - 1.33 mmol/L [facility] Comment: Note: ??Total bilirubin higher than 20 mg/dL may lead to falsely low ionized calcium. CL Whole Blood 95(L) 98 - 107 mmol/L [facility] Gluc Whole Bld 82 65 - 199 mg/dL [facility] Comment:Diabetes: >=200 mg/d L plus symptoms Lactate WB 1.1 0.5 - 2.2 mmol/L [facility] Blood Gas Source Venous [facility] Blood Venous Draw / Unknown 05/16/2023 4:22 AM EDT 05/16/2023 4:31 AM EDT Narrative Resulting Agency Comment Spec In Lab Bonita TOBAR [place] [address] * (ABNORMAL) Differential, Automated (05/16/2023 4:20 AM EDT) Neutrophil % 84.1 % [facility] Neutrophil Absolute 6.22(H) 1.70 - 6.10 x10(3)/mc L [facility] Lymph % 5.8 % [facility] Lymphocytes Abs 0.4(L) 0.9 - 3.2 x10(3)/mc L [facility] Monocyte % 8.8 % [facility] Monocyte Abs 0.6 0.3 - 0.9 x10(3)/mc L [facility] Eos % 0.4 % [facility] Eosinophils Abs 0.0 0.0 - 0.4 x10(3)/mc L [facility] Basophil % 0.0 % [facility] Baso Absolute 0.0 0.0 - 0.1 x10(3)/mc L [facility] Immature Gran % 0.90 % [facility] Comment: Immature granulocytes(IG's)percentage and absolute count will include metamyelocytes, myelocytes, and promyelocytes. Blood smears from CBCs yielding IG's will be scanned manually for concordance. If this scan disagrees with the automated IG or if promyelocytes are noted, a manual differential will be performed. Immature Gran Absolute 0.07(H) 0.00 - 0.04 x10(3)/mc L [facility] Blood 05/16/2023 4:20 AM EDT 05/16/2023 4:29 AM EDT Narrative Resulting Agency Comment Spec In Lab James Agustin MD HEMATOLOGY ORDER JODIE Performing Organization Address City/[facility]/ZIP [place] [address] * (ABNORMAL) Hemogram (05/16/2023 4:20 AM EDT) White Blood Cell 7.4 4.0 - 9.5 x10(3)/mc L [facility] Red Blood Cell 2.40(L) 4.00 - 5.21 x10(6)/mc L [facility] Hemoglobin 7.8(L) 11.7 - 15.5 g/dL [facility] Hematocrit 22.5(L) 35.7 - 45.8 % [facility] Mean Cell Volume 93.8 82.6 - 94.4 fL [facility] Mean Cell Hemoglobin 32.5(H) 27.1 - 32.0 pg [facility] Mean Cell Hemoglobin Concentration 34.7 31.7 - 35.0 g/dL [facility] Platelet 120(L) 145 - 357 x10(3)/mc L [facility] RDW Standard Deviation 42.9 37.0 - 46.0 fL [facility] RDW coefficient of variation 12.9 11.5 - 14.1 % [facility] Mean Platelet Volume 11.3 7.6 - 12.9 fL [facility] NRBC% auto 0.7 % [facility] NRBC Absolute 0.050(H) 0.000 - 0.000 x10(3)/ L [facility] Blood 05/16/2023 4:20 AM EDT 05/16/2023 4:29 AM EDT Narrative Resulting Agency Comment Spec In Lab James Agustin MD HEMATOLOGY ORDER JODIE [facility] [place] [address] * (ABNORMAL) Basic Metabolic Panel (non-fasting) (05/16/2023 4:20 AM EDT) Glucose 89 65 - 199 mg/dL [facility] Comment:Diabetes: >=200 mg/d L plus symptoms Blood Urea Nitrogen 108(H) 8 - 18 mg/dL [facility] Creatinine 4.74(H) 0.70 - 1.20 mg/dL [facility] Comment:result rechecked-OLIV[facility] Sodium 132(L) 135 - 145 mmol/L [facility] Potassium 3.9 3.5 - 5.0 mmol/L [facility] Comment: Please note: ??Patients with WBC >100,000 may have falsely elevated Potassium levels. ??For accurate Potassium quantification in these patients send serum separator tube (gold top) for subsequent determinations. ??Contact the Clinical Chemistry Laboratory if there are any questions. Chloride 95(L) 98 - 107 mmol/L [facility] Carbon Dioxide 18(L) 22 - 31 mmol/L [facility] Anion Gap 19(H) 5 - 15 mmol/L [facility] Calcium 9.2 8.5 - 10.5 mg/dL [facility] Est Glomerular Filtration Rate 10(L) >=60 mL/min/1. 73 m?? [facility] Comment: This patient's estimated [...] Lab Alirio Hudson MD CHEMISTRY ORDERABLE S [facility] [place] [address] * (ABNORMAL) Iron and TIBC (05/16/2023 4:20 AM EDT) Iron 31 30 - 150 mcg/dL [facility] TIBC 259 250 - 450 mcg/dL [facility] Iron Saturation 12(L) 20 - 50 % [facility] Blood 05/16/2023 4:20 AM EDT 05/16/2023 4:29 AM EDT Narrative Resulting Agency Comment Spec In Lab Kristopher Ayoub MD CHEMISTRY ORDERABLES [facility] [place] [address] * (ABNORMAL) Basic Metabolic Panel (non-fasting) (05/15/2023 12:50 AM EDT) Glucose 101 65 - 199 mg/dL [facility] Comment:Diabetes: >=200 mg/d L plus symptoms Blood Urea Nitrogen 109(H) 8 - 18 mg/dL [facility] Creatinine 5.62(H) 0.70 - 1.20 mg/dL [facility] Comment:result rechecked-[place] Sodium 131(L) 135 - 145 mmol/L [facility] Comment:result rechecked-[place] Potassium 3.7 3.5 - 5.0 mmol/L [facility] Comment: result rechecked-[place] Please note: ??Patients with WBC >100,000 may have falsely elevated Potassium levels. ??For accurate Potassium quantification in these patients send serum separator tube (gold top) for subsequent determinations. ??Contact the Clinical Chemistry Laboratory if there are any questions. Chloride 92(L) 98 - 107 mmol/L [facility] Comment:result rechecked-[place] Carbon Dioxide 18(L) 22 - 31 mmol/L [facility] Comment:result rechecked-[place] Anion Gap 21(H) 5 - 15 mmol/L [facility] Calcium 8.9 8.5 - 10.5 mg/dL [facility] Est Glomerular Filtration Rate 8(L) >=60 mL/min/1. 73 m?? [facility] Comment: This patient's estimated [...] MD CHEMISTRY ORDERABLE S Performing Organization Address City/[facility]/ZIP Co de Phone Number [facility] [place] [address] * (ABNORMAL) Hemogram (05/15/2023 12:50 AM EDT) White Blood Cell 9.1 4.0 - 9.5 x10(3)/mc L [facility] Red Blood Cell 2.19(L) 4.00 - 5.21 x10(6)/mc L [facility] Hemoglobin 7.2(L) 11.7 - 15.5 g/dL [facility] Hematocrit 20.6(L) 35.7 - 45.8 % [facility] Mean Cell Volume 94.1 82.6 - 94.4 fL [facility] Mean Cell Hemoglobin 32.9(H) 27.1 - 32.0 pg [facility] Mean Cell Hemoglobin Concentration 35.0 31.7 - 35.0 g/dL [facility] Platelet 109(L) 145 - 357 x10(3)/mc L [facility] RDW Standard Deviation 43.6 37.0 - 46.0 fL [facility] RDW coefficient of variation 12.9 11.5 - 14.1 % [facility] Mean Platelet Volume 10.4 7.6 - 12.9 fL [facility] NRBC% auto 2.1 % [facility] NRBC Absolute 0.190(H) 0.000 - 0.000 x10(3)/mc L [facility] Blood 05/15/2023 12:5 0 AM EDT 05/15/2023 12:52 AM EDT Narrative Resulting Agency Comment Spec In Lab Alirio Hudson MD HEMATOLOGY ORDERABL ES Performing Organization Address [facility] Co de Phone Number [facility] [place] [address] * (ABNORMAL) BLOOD GAS 2 VENOUS (05/15/2023 12:49 AM EDT) pH, Venous 7.33 7.32 - 7.42 [facility] PCO2, Venous 37(L) 41 - 51 mmHg [facility] PO2, Venous 34 25 - 40 mmHg [facility] Bicarbonate, Venous 19.1 mmol/L [facility] Base Excess, Venous -6.8 mmol/L [facility] Hgb Blood Gas 10.8(L) 11.7 - 15.5 g/dL [facility] Oxyhemoglobin, Venous 58.1 % [facility] Carboxyhemoglob in, Venous 0.3 % [facility] Comment: Nonsmokers: 0.5-1.5% COHB Smokers: Variable, but usually less than 10% Toxic: 20-30% COHB Lethal: Greater than 60% COHB Methemoglobin, Venous 0.6 <=1.5 % [facility] Na Whole Blood 136 135 - 145 mmol/L [facility] K Whole Blood 3.7 3.5 - 5.0 mmol/L [facility] Comment: Please note: Patients with WBC >100,000 may have falsely elevated Potassium levels. Contact the Clinical Chemistry Laboratory if there are any questions. ICa Whole Blood 1.12(L) 1.15 - 1.33 mmol/L [facility] Comment: Note: ??Total bilirubin higher than 20 mg/dL may lead to falsely low ionized calcium. CL Whole Blood 95(L) 98 - 107 mmol/L [facility] Gluc Whole Bld 101 65 - 199 mg/dL [facility] Comment:Diabetes: >=200 mg/d L plus symptoms Lactate WB 1.3 0.5 - 2.2 mmol/L [facility] Flow, Mike 1.0 LPM [facility] Blood Gas Source Venous [facility] Blood 05/15/2023 12:4 9 AM EDT 05/15/2023 12:49 AM EDT Alirio Hudson MD POINT OF CARE TEST ORDERABLES [facility] [place] [address] * US Retroperitoneal Complete (05/14/2023 3:53 PM [...] PM Electronically signed by: Hayden Robledo MD, [facility] ([phone]), at 05/14/2023 4:32 PM Thank you for letting us participate in the care of this patient. If you are a health care provider and have any questions regarding this report, please contact the number above. For patients who have questions, please contact the health care management associate that requested your imaging first. ? Hayden Robledo, Staff Physician Electronically Signed Final Report ?? 05/14/2023 04:39 pm Narrative 05/14/2023 4:39 PM EDT Renal ? (Signed Final 05/14/2023 04:39 pm) PATIENT INFO: ID #: ? [id number] ?: ??55 (67 yrs)(F) Name: ? PURNIMA THACKER ?Visit Date: 05/14/2023 03:44 pm PERFORMED BY: Attending: ?Meena CULP, Hayden Stafford Resident: ? Nell CULP, Anand August Performed By: ? Consuelo Tello RDMS Referred By: ?ALIRIO HUDSON Location: ? [place] SERVICE(S) PROVIDED: URETRO - Retroperitoneal Complete - [id number] ? [id number] INDICATIONS: EVANS COMPARISON: CT: Abdomen/Pelvis 05/11/23 RIGHT [...] 05/14/2023 04:39 pm) PATIENT INFO: ID #: [id number] : 55 (67 yrs)(F) Name: PURNIMA THACKER Visit Date: 05/14/2023 03:44 pm PERFORMED BY: Attending: Hayden Robledo MD Resident: Anand Camejo MD Performed By: Consuelo Tello RDMS Referred By: ALIRIO HUDSON Location: [place] SERVICE(S) PROVIDED: URETRO - Retroperitoneal Complete - [id number] INDICATIONS: EVANS COMPARISON: CT: Abdomen/Pelvis 05/11/23 RIGHT [...] PM Electronically signed by: Hayden Robledo MD, [facility] ([phone]), at 05/14/2023 4:32 PM Thank you for letting us participate in the care of this patient. If you are a health care provider and have any questions regarding this report, please contact the number above. For patients who have questions, please contact the health care management associate that requested your imaging first. Hayden Robledo, Staff Physician Electronically Signed Final Report 05/14/2023 04:39 pm Alirio Hudson MD IMG US GEN ORDERABL ES * CK (05/14/2023 3:17 PM EDT) Creatine Kinase 123 0 - 160 unit/L [facility] Blood 05/14/2023 3:17 PM EDT 05/14/2023 3:31 PM EDT Narrative Resulting Agency Comment Spec In Lab Alirio Hudson MD CHEMISTRY ORDERABLE S Performing Organization Address [facility] Co de Phone Number [facility] [place] [address] * (ABNORMAL) Uric acid (05/14/2023 3:17 PM EDT) Uric Acid 14.9(H) 2.5 - 6.5 mg/dL [facility] Blood 05/14/2023 3:17 PM EDT 05/14/2023 3:31 PM EDT Narrative Resulting Agency Comment Spec In Lab Alirio Hudson MD CHEMISTRY ORDERABLE S Performing Organization Address [facility] [place] [address] * (ABNORMAL) Osmolality (05/14/2023 3:17 PM EDT) Osmolality 311(H) 275 - 295 mOsm/kg [facility] Blood 05/14/2023 3:17 PM EDT 05/14/2023 3:31 PM EDT Narrative Resulting Agency Comment Spec In Lab Alirio Hudson MD [place] [address] * (ABNORMAL) Differential, Automated (05/14/2023 1:10 AM EDT) Pathologist [facility] Neutrophil % 87.2 % [facility] Neutrophil Absolute 9.74(H) 1.70 - 6.10 x10(3)/mc L [facility] Lymph % 3.9 % [facility] Lymphocytes Abs 0.4(L) 0.9 - 3.2 x10(3)/mc L [facility] Monocyte % 7.9 % [facility] Monocyte Abs 0.9 0.3 - 0.9 x10(3)/mc L [facility] Eos % 0.0 % [facility] Eosinophils Abs 0.0 0.0 - 0.4 x10(3)/mc L [facility] Basophil % 0.1 % [facility] Baso Absolute 0.0 0.0 - 0.1 x10(3)/mc L [facility] Immature Gran % 0.90 % [facility] Comment: Immature granulocytes(IG's)percentage and absolute count will include metamyelocytes, myelocytes, and promyelocytes. Blood smears from CBCs yielding IG's will be scanned manually for concordance. If this scan disagrees with the automated IG or if promyelocytes are noted, a manual differential will be performed. Immature Gran Absolute 0.10(H) 0.00 - 0.04 x10(3)/mc L [facility] Blood 05/14/2023 1:10 AM EDT 05/14/2023 1:24 AM EDT Narrative Resulting Agency Comment Spec In Lab Bonita TOBAR HEMATOLOGY ORDERABLE S [facility] [place] [address] * (ABNORMAL) Hemogram (05/14/2023 1:10 AM EDT) White Blood Cell 11.2(H) 4.0 - 9.5 x10(3)/mc L [facility] Red Blood Cell 2.19(L) 4.00 - 5.21 x10(6)/mc L [facility] Hemoglobin 7.2(L) 11.7 - 15.5 g/dL [facility] Hematocrit 20.3(L) 35.7 - 45.8 % [facility] Mean Cell Volume 92.7 82.6 - 94.4 fL [facility] Mean Cell Hemoglobin 32.9(H) 27.1 - 32.0 pg [facility] Mean Cell Hemoglobin Concentration 35.5(H) 31.7 - 35.0 g/dL [facility] Platelet 112(L) 145 - 357 x10(3)/mc L [facility] RDW Standard Deviation 41.4 37.0 - 46.0 fL [facility] RDW coefficient of variation 12.5 11.5 - 14.1 % [facility] Mean Platelet Volume 10.4 7.6 - 12.9 fL [facility] NRBC% auto 1.5 % [facility] NRBC Absolute 0.170(H) 0.000 - 0.000 x10(3)/mc L [facility] Blood 05/14/2023 1:10 AM EDT 05/14/2023 1:24 AM EDT Narrative Resulting Agency Comment Spec In Lab Bonita TOBAR HEMATOLOGY ORDERABLE S [facility] [place] [address] * (ABNORMAL) Comprehensive metabolic panel (non-fasting) (05/14/2023 1:10 AM EDT) Glucose 120 65 - 199 mg/dL [facility] Comment:Diabetes: >=200 mg/d L plus symptoms Blood Urea Nitrogen 98(H) 8 - 18 mg/dL [facility] Creatinine 4.80(H) 0.70 - 1.20 mg/dL [facility] Comment:result rechecked-ssc Sodium 132(L) 135 - 145 mmol/L [facility] Potassium 4.1 3.5 - 5.0 mmol/L [facility] Comment: Please note: ??Patients with WBC >100,000 may have falsely elevated Potassium levels. ??For accurate Potassium quantification in these patients send serum separator tube (gold top) for subsequent determinations. ??Contact the Clinical Chemistry Laboratory if there are any questions. Chloride 94(L) 98 - 107 mmol/L [facility] Carbon Dioxide 18(L) 22 - 31 mmol/L [facility] Anion Gap 20(H) 5 - 15 mmol/L [facility] Calcium 8.5 8.5 - 10.5 mg/dL [facility] Protein, Total 5.8(L) 6.1 - 8.0 g/dL [facility] Albumin 3.6 3.2 - 5.2 g/dL [facility] Aspartate Aminotransferase 319(H) 0 - 30 unit/L [facility] Alanine Aminotransferase 437(H) 0 - 30 unit/L [facility] Alkaline Phosphatase 86 35 - 105 unit/L [facility] Bilirubin, Total 0.4 0.2 - 1.3 mg/dL [facility] Est Glomerular Filtration Rate 9(L) >=60 mL/min/1. 73 m?? [facility] Comment: This patient's estimated [...] ORDERABLE S Performing Organization Address [facility] Co de Phone Number [facility] [place] [address] * APTT (05/13/2023 10:15 AM EDT) Partial Thromboplastin Time 27 25 - 37 sec [facility] Comment: The PTT is NOT appropriate for heparin monitoring. Use the Anti-Xa level for heparin monitoring (HEP UFH) or LMWH monitoring (HEP LMW). A PTT less than 37 seconds generally indicates adequate hemostasis. Blood 05/13/2023 10:1 5 AM EDT 05/13/2023 10:46 AM EDT Narrative Resulting Agency Comment Spec In Lab Alirio Hudson MD HEMATOLOGY ORDERABL ES Performing Organization Address [facility] Co de Phone Number [facility] [place] [address] * (ABNORMAL) Prothrombin Time (05/13/2023 10:15 AM EDT) Prothrombin Time 14.6(H) 9.4 - 12.5 sec [facility] International Normalization Ratio 1.3 [facility] Comment: An INR <2.0 indicates adequate [...] Performing Organization Address [facility] Co de Phone Number [facility] [place] [address] * EKG 12 Lead (05/13/2023 9:22 AM EDT) Pathologist [facility] Ventricular rate 92 BPM MUSE SYSTEM Atrial Rate 92 BPM MUSE SYSTEM P-R Interval 140 ms MUSE SYSTEM QRS Duration 104 ms MUSE SYSTEM Q-T Interval 384 ms MUSE SYSTEM QTC Calculated (Bezet) 474 ms MUSE SYSTEM Calculated P [place] 33 degrees MUSE SYSTEM Calculated R [place] 41 degrees MUSE SYSTEM Calculated T [place] -35 degrees MUSE SYSTEM INTERPRETATION Sinus rhythm with frequent Premature ventricular complexes Septal infarct , age undetermined ST & T wave abnormality, consider lateral ischemia Abnormal ECG When compared with ECG of 12-MAY-2023 10:10, Premature ventricular complexes are now Present I personally reviewed the tracing and edited the fellows interpretation Confirmed by fellow MD Anitha, Carissa ([id number]) on 05/13/2023 3:25:30 PM Confirmed by Maxx Best ([id number]) on 05/13/2023 8:30:56 PM MUSE SYSTEM 05/13/2023 9:22 AM EDT 05/13/2023 8:30 PM EDT Alirio Hudson MD ECG ORDERABLES M[facility] SYSTEM * (ABNORMAL) Differential, Automated (05/13/2023 1:15 AM EDT) [facility] Neutrophil % 88.1 % [facility] Neutrophil Absolute 7.62(H) 1.70 - 6.10 x10(3)/mc L [facility] Lymph % 3.1 % [facility] Lymphocytes Abs 0.3(L) 0.9 - 3.2 x10(3)/mc L [facility] Monocyte % 7.9 % [facility] Monocyte Abs 0.7 0.3 - 0.9 x10(3)/mc L [facility] Eos % 0.0 % [facility] Eosinophils Abs 0.0 0.0 - 0.4 x10(3)/mc L [facility] Basophil % 0.1 % [facility] Baso Absolute 0.0 0.0 - 0.1 x10(3)/mc L [facility] Immature Gran % 0.80 % [facility] Comment: Immature granulocytes(IG's)percentage and absolute count will include metamyelocytes, myelocytes, and promyelocytes. Blood smears from CBCs yielding IG's will be scanned manually for concordance. If this scan disagrees with the automated IG or if promyelocytes are noted, a manual differential will be performed. Immature Gran Absolute 0.07(H) 0.00 - 0.04 x10(3)/mc L [facility] Blood 05/13/2023 1:15 AM EDT 05/13/2023 1:29 AM EDT Narrative Resulting Agency Comment Spec In Lab Lorri TOBAR HEMATOLOGY ORDERABLE S [facility] [place] [address] * (ABNORMAL) Hemogram (05/13/2023 1:15 AM EDT) White Blood Cell 8.6 4.0 - 9.5 x10(3)/[facility] Red Blood Cell 2.37(L) 4.00 - 5.21 x10(6)/[facility] Hemoglobin 7.8(L) 11.7 - 15.5 g/dL [facility] Hematocrit 22.2(L) 35.7 - 45.8 % [facility] Mean Cell Volume 93.7 82.6 - 94.4 fL [facility] Mean Cell Hemoglobin 32.9(H) 27.1 - 32.0 pg [facility] Mean Cell Hemoglobin Concentration 35.1(H) 31.7 - 35.0 g/dL [facility] Platelet 130(L) 145 - 357 x10(3)/[facility] RDW Standard Deviation 41.7 37.0 - 46.0 fL [facility] RDW coefficient of variation 12.5 11.5 - 14.1 % [facility] Mean Platelet Volume 10.2 7.6 - 12.9 fL [facility] NRBC% auto 0.5 % [facility] NRBC Absolute 0.040(H) 0.000 - 0.000 x10(3)/ L [facility] Blood 05/13/2023 1:15 AM EDT 05/13/2023 1:29 AM EDT Narrative Resulting Agency Comment Spec In Lab Lorri TOBAR HEMATOLOGY ORDERABLE S Performing Organization Address City/[facility]/ZIP Co de Phone Number [facility] [place] [address] * (ABNORMAL) Hepatic Function Panel (05/13/2023 1:15 AM EDT) Protein, Total 5.5(L) 6.1 - 8.0 g/dL [facility] Albumin 3.0(L) 3.2 - 5.2 g/dL [facility] Aspartate Aminotransferase 792(H) 0 - 30 unit/L [facility] Alanine Aminotransferase 903(H) 0 - 30 unit/L [facility] Alkaline Phosphatase 85 35 - 105 unit/L [facility] Bilirubin, Total 0.5 0.2 - 1.3 mg/dL [facility] Bilirubin, Direct 0.3 0.0 - 0.3 mg/dL [facility] Blood 05/13/2023 1:15 AM EDT 05/13/2023 1:29 AM EDT Narrative Resulting Agency Comment Spec In Lab Alirio Hudson MD CHEMISTRY ORDERABLE S Performing Organization Address [facility] Co de Phone Number [facility] [place] [address] * (ABNORMAL) Basic Metabolic Panel (non-fasting) (05/13/2023 1:15 AM EDT) Glucose 107 65 - 199 mg/dL [facility] Comment:Diabetes: >=200 mg/d L plus symptoms Blood Urea Nitrogen 82(H) 8 - 18 mg/dL [facility] Creatinine 3.15(H) 0.70 - 1.20 mg/dL [facility] Comment:result rechecked-OG Sodium 132(L) 135 - 145 mmol/L [facility] Potassium 3.8 3.5 - 5.0 mmol/L [facility] Comment: Please note: ??Patients with WBC >100,000 may have falsely elevated Potassium levels. ??For accurate Potassium quantification in these patients send serum separator tube (gold top) for subsequent determinations. ??Contact the Clinical Chemistry Laboratory if there are any questions. Chloride 95(L) 98 - 107 mmol/L [facility] Carbon Dioxide 20(L) 22 - 31 mmol/L [facility] Anion Gap 17(H) 5 - 15 mmol/L [facility] Calcium 8.3(L) 8.5 - 10.5 mg/dL [facility] Est Glomerular Filtration Rate 16(L) >=60 mL/min/1. 73 m?? [facility] Comment: This patient's estimated [...] Lab Alirio Hudson MD CHEMISTRY ORDERABLE S [facility] [place] [address] * (ABNORMAL) BLOOD GAS 2 ARTERIAL (05/12/2023 3:57 PM EDT) pH, Arterial 7.39 7.35 - 7.45 [facility] PCO2, Arterial 33(L) 35 - 45 mmHg [facility] PO2, Arterial 101 85 - 104 mmHg [facility] Bicarbonate, Arterial 19.5(L) 20.0 - 26.0 mmol/L [facility] Base Excess, Arterial -5.5(L) -3.0 - 3.0 mmol/L [facility] Hgb Blood Gas 9.8(L) 11.7 - 15.5 g/dL [facility] Oxyhemoglobin, Arterial 95.2 94.0 - 97.0 % [facility] Carboxyhemoglob in, Arterial 0.2 % [facility] Comment: Nonsmokers: 0.5-1.5% COHB Smokers: Variable, but usually less than 10% Toxic: 20-30% COHB Lethal: Greater than 60% COHB Methemoglobin, Arterial 0.8 <=1.5 % [facility] Na Whole Blood 129(L) 135 - 145 mmol/L [facility] K Whole Blood 3.8 3.5 - 5.0 mmol/L [facility] Comment: Please note: Patients with WBC >100,000 may have falsely elevated Potassium levels. Contact the Clinical Chemistry Laboratory if there are any questions. ICa Whole Blood 1.05(L) 1.15 - 1.33 mmol/L [facility] Comment: Note: ??Total bilirubin higher than 20 mg/dL may lead to falsely low ionized calcium. CL Whole Blood 96(L) 98 - 107 mmol/L [facility] Gluc Whole Bld 178 65 - 199 mg/dL [facility] Comment:Diabetes: >=200 mg/d L plus symptoms. Lactate WB 1.5 0.5 - 2.2 mmol/L [facility] FIO2 Art 40 % [facility] PF Ratio Art 252 [facility] Blood 05/12/2023 3:57 PM EDT 05/12/2023 3:57 PM EDT Alirio Hudosn MD POINT OF CARE TEST ORDERABLES Performing Organization Address City/State/[facility] Co de Phone Number [facility] [place] [address] * (ABNORMAL) Coox2 (05/12/2023 2:25 PM EDT) pO2, Coox 37 mmHg [facility] Hgb Blood Gas 9.5(L) 11.7 - 15.5 g/dL [facility] Oxyhemoglobin, Coox 59.9 % [facility] Carboxyhemoglo bin, Coox 0.3 % [facility] Comment: Nonsmokers: 0.5-1.5% COHB Smokers: Variable, but usually less than 10% Toxic: 20-30% COHB Lethal: Greater than 60% COHB Methemoglobin, Coox 0.7 <=1.5 % [facility] Source Coox Mixed Venous [facility] Blood 05/12/2023 2:25 PM EDT 05/12/2023 2:25 PM EDT Alirio Hudson MD POINT OF CARE TEST ORDERABLES [facility] [address] [place] [address] * (ABNORMAL) BLOOD GAS 2 ARTERIAL (05/12/2023 2:23 PM EDT) pH, Arterial 7.37 7.35 - 7.45 [facility] PCO2, Arterial 36 35 - 45 mmHg [facility] PO2, Arterial 102 85 - 104 mmHg [facility] Bicarbonate, Arterial 20.4 20.0 - 26.0 mmol/L [facility] Base Excess, Arterial -4.8(L) -3.0 - 3.0 mmol/L [facility] Hgb Blood Gas 12.7 11.7 - 15.5 g/dL [facility] Oxyhemoglobin, Arterial 95.4 94.0 - 97.0 % [facility] Carboxyhemoglob in, Arterial 0.3 % [facility] Comment: Nonsmokers: 0.5-1.5% COHB Smokers: Variable, but usually less than 10% Toxic: 20-30% COHB Lethal: Greater than 60% COHB Methemoglobin, Arterial 0.7 <=1.5 % [facility] Na Whole Blood 129(L) 135 - 145 mmol/L [facility] K Whole Blood 3.7 3.5 - 5.0 mmol/L [facility] Comment: Please note: Patients with WBC >100,000 may have falsely elevated Potassium levels. Contact the Clinical Chemistry Laboratory if there are any questions. ICa Whole Blood 1.05(L) 1.15 - 1.33 mmol/L [facility] Comment: Note: ??Total bilirubin higher than 20 mg/dL may lead to falsely low ionized calcium. CL Whole Blood 95(L) 98 - 107 mmol/L [facility] Gluc Whole Bld 168 65 - 199 mg/dL [facility] Comment:Diabetes: >=200 mg/d L plus symptoms. Lactate WB 1.8 0.5 - 2.2 mmol/L [facility] FIO2 Art 40 % [facility] PF Ratio Art 255 [facility] Blood 05/12/2023 2:23 PM EDT 05/12/2023 2:23 PM EDT Alirio Hudson MD POINT OF CARE TEST ORDERABLES [facility] [place] [address] * (ABNORMAL) Troponin (05/12/2023 2:05 PM EDT) Troponin-T, High Sensitivity 1,022(H) <=14 ng/L [facility] Comment: This patient's troponin T concentration [...] value can be found in the [facility] Test Catalog Troponin - [facility] Test Catalog Reference: Fourth [place] Definition of Myocardial Infarction. Journal of the [place] [employer] 2018;72:7227-8404 Blood 05/12/2023 2:05 PM EDT 05/12/2023 2:14 PM EDT Narrative Resulting Agency Comment Spec In Lab Alirio Hudson MD CHEMISTRY ORDERABLE S Performing Organization Address City/[facility]/ZIP Co de Phone Number [facility] [place] [address] * (ABNORMAL) Hemoglobin (05/12/2023 2:05 PM EDT) Hemoglobin 8.5(L) 11.7 - 15.5 g/dL [facility] Blood 05/12/2023 2:05 PM EDT 05/12/2023 2:14 PM EDT Narrative Resulting Agency Comment Spec In Lab Alirio Hudson MD HEMATOLOGY ORDERABL ES Performing Organization Address [facility] Co de Phone Number [facility] [place] [address] * Potassium (05/12/2023 2:05 PM EDT) Potassium 3.9 3.5 - 5.0 mmol/L [facility] Comment: Please note: ??Patients [...] ORDERABLE S Performing Organization Address [facility] Co de Phone Number [facility] [place] [address] * (ABNORMAL) BLOOD GAS 2 ARTERIAL (05/12/2023 11:05 AM EDT) pH, Arterial 7.34(L) 7.35 - 7.45 [facility] PCO2, Arterial 42 35 - 45 mmHg [facility] PO2, Arterial 73(L) 85 - 104 mmHg [facility] Bicarbonate, Arterial 22.1 20.0 - 26.0 mmol/L [facility] Base Excess, Arterial -3.6(L) -3.0 - 3.0 mmol/L [facility] Hgb Blood Gas 9.3(L) 11.7 - 15.5 g/dL [facility] Oxyhemoglobin, Arterial 89.3(L) 94.0 - 97.0 % [facility] Carboxyhemoglob in, Arterial 0.2 % [facility] Comment: Nonsmokers: 0.5-1.5% COHB Smokers: Variable, but usually less than 10% Toxic: 20-30% COHB Lethal: Greater than 60% COHB Methemoglobin, Arterial 0.9 <=1.5 % [facility] Na Whole Blood 131(L) 135 - 145 mmol/L [facility] K Whole Blood 3.8 3.5 - 5.0 mmol/L [facility] Comment: Please note: Patients with WBC >100,000 may have falsely elevated Potassium levels. Contact the Clinical Chemistry Laboratory if there are any questions. ICa Whole Blood 1.04(L) 1.15 - 1.33 mmol/L [facility] Comment: Note: ??Total bilirubin higher than 20 mg/dL may lead to falsely low ionized calcium. CL Whole Blood 96(L) 98 - 107 mmol/L [facility] Gluc Whole Bld 152 65 - 199 mg/dL [facility] Comment:Diabetes: >=200 mg/d L plus symptoms. Lactate WB 2.8(H) 0.5 - 2.2 mmol/L [facility] FIO2 Art 40 % [facility] PF Ratio Art 182 [facility] Blood 05/12/2023 11:0 5 AM EDT 05/12/2023 11:05 AM EDT Alirio Hudson MD POINT OF CARE TEST ORDERABLES [facility] [place] [address] * (ABNORMAL) BLOOD GAS 2 ARTERIAL (05/12/2023 10:14 AM EDT) pH, Arterial 7.18(Criti gabrielle) 7.35 - 7.45 [facility] Comment:Noted by teacher instrumental. PCO2, Arterial 45 35 - 45 mmHg [facility] PO2, Arterial 186(H) 85 - 104 mmHg [facility] Bicarbonate, Arterial 16.2(L) 20.0 - 26.0 mmol/L [facility] Base Excess, Arterial -12.2(L) -3.0 - 3.0 mmol/L [facility] Hgb Blood Gas 10.0(L) 11.7 - 15.5 g/dL [facility] Oxyhemoglobin, Arterial 97.0 94.0 - 97.0 % [facility] Carboxyhemoglob in, Arterial 0.2 % [facility] Comment: Nonsmokers: 0.5-1.5% COHB Smokers: Variable, but usually less than 10% Toxic: 20-30% COHB Lethal: Greater than 60% COHB Methemoglobin, Arterial 0.9 <=1.5 % [facility] Na Whole Blood 129(L) 135 - 145 mmol/L [facility] K Whole Blood 3.6 3.5 - 5.0 mmol/L [facility] Comment: Please note: Patients with WBC >100,000 may have falsely elevated Potassium levels. Contact the Clinical Chemistry Laboratory if there are any questions. ICa Whole Blood 1.10(L) 1.15 - 1.33 mmol/L [facility] Comment: Note: ??Total bilirubin higher than 20 mg/dL may lead to falsely low ionized calcium. CL Whole Blood 97(L) 98 - 107 mmol/L [facility] Gluc Whole Bld 161 65 - 199 mg/dL [facility] Comment:Diabetes: >=200 mg/d L plus symptoms. Lactate WB 3.3(H) 0.5 - 2.2 mmol/L [facility] FIO2 Art 100 % [facility] PF Ratio Art 186 [facility] Blood 05/12/2023 10:1 4 AM EDT 05/12/2023 10:14 AM EDT Alirio Hudson MD POINT OF CARE TEST ORDERABLES [facility] [place] [address] * EKG 12 Lead (05/12/2023 10:10 AM EDT) Ventricular rate 116 BPM MUSE SYSTEM Atrial Rate 116 BPM MUSE SYSTEM P-R Interval 158 ms MUSE SYSTEM QRS Duration 114 ms MUSE SYSTEM Q-T Interval 348 ms MUSE SYSTEM QTC Calculated (Bezet) 483 ms MUSE SYSTEM Calculated P [place] 37 degrees MUSE SYSTEM Calculated R [place] 31 degrees MUSE SYSTEM Calculated T [place] -138 degrees MUSE SYSTEM INTERPRETATION Sinus tachycardia with intermittent aberrant ventricular conduction Possible Left atrial enlargement Incomplete left bundle block Left ventricular hypertrophy with repolarization abnormality ( Sokolow-Orozco , Rogers product ) ST & T wave abnormality in Inferolateral leads Abnormal ECG When compared with ECG of 10-MAY-2023 13:16, ST & T wave abnormality is more pronounced in inferolateral leads I personally reviewed the tracing and edited the fellows interpretation Confirmed by fellow MD Anuja, Jim ([id number]) on 05/12/2023 1:04:20 PM Confirmed by MD Mono, Eleni ([id number]) on 05/12/2023 9:28:34 PM MUSE SYSTEM 05/12/2023 [...] questions please contact the health care management associate that requested your imaging first. ? Electronically signed by: Chyna Johnson MD, [facility] ??([phone]), at 05/12/2023 10:08 AM Narrative 05/12/2023 10:08 AM EDT EXAMINATION: XR CHEST ONE VIEW CLINICAL HISTORY: Post TAVR TECHNIQUE: 1 view of the chest COMPARISON: Chest radiograph from earlier today FINDINGS: Interval placement of endotracheal tube with tip terminating 2 cm above the shira. Interval placement of enteric tube projecting along the expected course of the esophagus and outside the lbzuz-ns-quct. Interval retraction of right IJ approach pulmonary [...] expected course ofthe esophagus and outside the owtnv-sc-aqtk. Interval retraction of right IJ approach pulmonary [...] have questions please contactthe health care management associate that requested your imaging first. Electronically signed by: Chyna Johnson MD, [facility]([phone]), at 05/12/2023 10:08 AM Alirio Hudson MD [...] 1955 ? Height: 154 cm ? Account: [id number] Age: 67 yrs ? Weight: 75 kg Gender: Female ?BSA: 1.7 m2 Ordering Physician: RADHA HOLLINS Referring Physician: RADHA HOLLINS Performed By: Dilma Bee RDCS Reason For Study: Guidance for TAVR procedure Exam Location: [facility]. Interpretation Summary PRE TAVR: There is severe [...] mL/m2. POST TAVR: Normal function of the onawz-mn-ofqer prosthesis. See below for hemodynamic parameters. Slight improvement in left and right ventricular systolic function. LVEF now 20-25%. No pericardial effusion. See report for additional findings. Procedure Limited - 95562. Doppler - 29508. Color Doppler - 84195. Left Ventricle Left ventricle is of normal [...] 307:33 AMBP: 96/63 mmHg Patient Location: [address] : 1955 Height: 154 cm Account: [id number] Age: 67 yrs Weight: 75 kg Gender: Female BSA: 1.7 m2 Ordering Physician: RADHA HOLLINS Referring Physician: RADHA HOLLINS Performed By: Dilma Bee RDCS Reason For Study: Guidance for TAVR procedure Exam Location: [facility]. Interpretation Summary PRE TAVR: There is severe [...] 28mL/m2. POST TAVR: Normal function of the hwxvo-xf-jvkyw prosthesis. See belowfor hemodynamic parameters. Slight improvement in left and right ventricularsystolic function. LVEF now 20-25%. No pericardial effusion. See report for additional findings. Procedure Limited - 86809. Doppler - 20019. Color Doppler - 21289. Left Ventricle Left ventricle is of normal [...] Narrative 05/12/2023 2:37 PM EDT ?[facility] ? Cardiac Catheterization/Intervention Report ? Patient Name: Kirstie, Purnima M. ? Procedure Date: 05/12/2023 ? A #: [id number] ? Primary Physician: Zachary, Antelmo N ? Case #: [id number] ? File Name: [id number] ? Catheterization Order Number: [id number] ? [facility] ? Final Report [place], [place] ? Patient Name: ? Purnima M. Kirstie ? ID#: ?[id number] ? : ?1955 ? Procedure Date: ? May 12, 2023 ? Case #: ? [id number] ? Room: ? 6 ? Case Physicians: ?Antelmo Sharma M.D. ?Start: ?08:03 ?Alirio Hudson M.D. ?Admission: ??05/08/2023 ?Lynad Mcgowan M.D. ? Discharge: ??05/22/2023 ?Fellow: ? Emad Adair Tejeda ? Referring Physician: ??Mario Alberto Chin M.D. ? Procedures: ?* Coronary Angiography ?* Left Heart Catheterization ?* Coronary Stent Insertion ?* Transcatheter Aortic Valve Replacement ?* Vascular Closure Device Deployment ?* Temporary Pacemaker Insertion In Senior Electrical Designer ?* Endotracheal Intubation By Non-Cath Physician [...] guide. ??A premounted 4.00 x 30 mm Cedar Calloway (MINNA) was ? deployed with a maximum [...] calculated STS risk score was 30.1%. A xsjtv-zt-fcjqo ?procedure was performed on the pre-existing bioprosthetic stented ?prosthesis. The priority of the wfelk-wx-elobj procedure was Elective. ?The procedure was performed [...] Lai 3 Ultra RESILIA 23 mm THV (s/q=[id number]) transcatheter ?valve was inserted using standard technique. [...] to nor was it given in the ?cathodic protection technician. ?Recommended anti-platelet/anti-thrombotic regimen: ?Continue aspirin 81 mg daily for indefinitely. ?These recommendations are made at the time of the intervention. Patient ?and provider preferences or a changing clinical situation may require ?modification of this regimen. Consult [facility] Interventional [facility]iology for ?questions. ? Conclusions: ?* [...] regimen. ? Comments: ?Successful right transfemoral TAVR Wfxsh-qm-Lpxej with a 23 mm Lai 3 ?THV. [...] insertion-coronary, access site angiography, ?temporary pacemaker in cathodic protection technician, intubation-non cath physician, vascular ?closure device, transthoracic echo ??and TAVR. Dr. Alirio Hudson M.D. ?performed the left heart catheterization, access site angiography, ?temporary pacemaker in cathodic protection technician, vascular closure device, transthoracic ?echo , TAVR and CPR during cath. Dr. Lynda Mcgowan M.D. performed the ABG, ?anesthesia and intubation-non cath physician. ? Antelmo Sharma M.D. ? Electronically Signed by: Antelmo Sharma M.D. ? Report Finalized: 05/12/2023 ??14:31 ? Report Last Ammended: 07/01/2023 ??11:30 ? Procedure Note Antelmo Sharma MD - 07/01/2023 [facility] Cardiac Catheterization/Intervention Report Patient Name: KirstiePurnima Procedure Date: 05/12/2023 A #: [id number] Primary Physician: Antelmo Sharma Case #: [id number] File Name: [id number] Catheterization Order Number: [id number] [facility] FinalReport [place], [place] Patient Name: Purnima Thacker ID#:[id number] :1955 Procedure Date: May 12, 2023 Case #: [id number] Room: 6 Case Physicians: Antelmo Sharma M.D. Start: 08:03 Alirio Hudson M.D. Admission:05/08/2023 Lynda Mcgowan M.D. Discharge:05/22/2023 Fellow: Rebekah Tejeda M.D. Referring Physician: Mario Alberto Chin M.D. Procedures: * Coronary Angiography * Left Heart Catheterization * Coronary Stent Insertion * Transcatheter Aortic Valve Replacement * Vascular Closure Device Deployment * Temporary Pacemaker Insertion In Senior Electrical Designer * Endotracheal Intubation By Non-Cath Physician [...] guide. A premounted 4.00 x 30 mm Cedar Calloway (MINNA) was deployed with a maximum inflation [...] calculated STS risk score was 30.1%. A znhqd-qm-wcmgn procedure was performed on the pre-existing bioprosthetic stented prosthesis. The priority of the mcclu-ea-oxxuj procedure wasElective. The procedure was performed under Moderate sedation performed byLynda Mcgowan M.D. (see anesthesia report for additional details). Alirio Hudson M.D. participated in the case (see Cardiac Surgery reportfor additional details). The TAVR sheath was a 14 Fr Corona eSheath Introducer and theaccess site was femoral. Rapid ventricular pacing was performed. An Corona Lai 3 Ultra RESILIA 23 mm THV (s/n=[id number])transcatheter valve was inserted using standard technique. The [...] prior to nor was it given inthe cathodic protection technician. Recommended anti-platelet/anti-thrombotic regimen: Continue aspirin 81 mg daily for indefinitely. These recommendations are made at the time of the intervention.Patient and provider preferences or a changing clinical situation mayrequire modification of this regimen. Consult [facility]iologyfor questions. Conclusions: * Nonobstructive disease [...] this regimen. Comments: Successful right transfemoral TAVR Lsmij-no-Dwvqi with a 23 mmSapien 3 THV. We [...] insertion-coronary, access site angiography, temporary pacemaker in cathodic protection technician, intubation-non cath physician,vascular closure device, transthoracic echo and TAVR. Dr. Alirio Hudson M.D. performed the left heart catheterization, access site angiography, temporary pacemaker in cathodic protection technician, vascular closure device,transthoracic echo , TAVR [...] pH, POC 7.20(Crit ical) 7.35 - 7.45 [facility] Comment:Critical value OKYamel C Lab. pCO2, POC 42 35 - 45 mmHg [facility] pO2, POC 260(H) 85 - 104 mmHg [facility] Base Excess, POC -11.0(L) -3.0 - 3.0 mmol/L [facility] Bicarbonate, POC 16.7(L) 20.0 - 26.0 mmol/L [facility] Sodium, POC 129(L) 135 - 145 mmol/L [facility] POC Potassium 3.8 3.5 - 5.0 mmol/L [facility] Ionized Calcium, POC 1.12(L) 1.15 - 1.33 mmol/L [facility] POC Hematocrit 23.0(L) 34.0 - 45.0 % [facility] POC Calc Hgb 7.8(L) 11.2 - 15.7 g/dL [facility] Comment:The calculation of h emoglobin from hematocrit assumes a normal MCHC. POC Bgas Loc CC Lab [facility] Blood 05/12/2023 8:50 AM EDT 05/13/2023 12:00 PM EDT Alirio Hudson MD CHEMISTRY ORDERABLE S Performing Organization Address City/State/[facility] Co de Phone Number [facility] [place] [address] * (ABNORMAL) Point of Care Blood Gas Historical (05/12/2023 8:10 AM EDT) pH, POC 7.27(Crit ical) 7.35 - 7.45 [facility] Comment:Critical value OKYamel C Lab. pCO2, POC 37 35 - 45 mmHg [facility] pO2, POC 29(Critic al) 85 - 104 mmHg [facility] Comment:Critical value OK C C Lab. Base Excess, POC -10.0(L) -3.0 - 3.0 mmol/L [facility] Bicarbonate, POC 16.7(L) 20.0 - 26.0 mmol/L [facility] Sodium, POC 123(L) 135 - 145 mmol/L [facility] POC Potassium 4.0 3.5 - 5.0 mmol/L [facility] Ionized Calcium, POC 1.12(L) 1.15 - 1.33 mmol/L [facility] POC Hematocrit 27.0(L) 34.0 - 45.0 % [facility] POC Calc Hgb 9.2(L) 11.2 - 15.7 g/dL [facility] Comment:The calculation of h emoglobin from hematocrit assumes a normal MCHC. POC Bgas Loc CC Lab [facility] Blood 05/12/2023 8:10 AM EDT 05/13/2023 12:00 PM EDT Alirio Hudson MD CHEMISTRY ORDERABLE S Performing Organization Address City/[facility]/ZIP Co de Phone Number [facility] [place] [address] * (ABNORMAL) Lactate, whole blood, send to lab ([facility] (05/12/2023 7:00 AM EDT) Lactate WB 2.4(H) 0.5 - 2.2 mmol/L [facility] Blood 05/12/2023 7:00 AM EDT 05/12/2023 7:09 AM EDT Narrative Resulting Agency Comment Spec In Lab Radha Hollins MD CHEMISTRY ORDERABL ES Performing Organization Address [facility] Co de Phone Number [facility] [place] [address] * (ABNORMAL) Comprehensive metabolic panel (non-fasting) (05/12/2023 6:00 AM EDT) Glucose 167 65 - 199 mg/dL [facility] Comment:Diabetes: >=200 mg/d L plus symptoms Blood Urea Nitrogen 67(H) 8 - 18 mg/dL [facility] Creatinine 2.01(H) 0.70 - 1.20 mg/dL [facility] Sodium 131(L) 135 - 145 mmol/L [facility] Potassium 4.3 3.5 - 5.0 mmol/L [facility] Comment: Please note: ??Patients with WBC >100,000 may have falsely elevated Potassium levels. ??For accurate Potassium quantification in these patients send serum separator tube (gold top) for subsequent determinations. ??Contact the Clinical Chemistry Laboratory if there are any questions. Chloride 97(L) 98 - 107 mmol/L [facility] Carbon Dioxide 14(L) 22 - 31 mmol/L [facility] Anion Gap 20(H) 5 - 15 mmol/L [facility] Calcium 8.6 8.5 - 10.5 mg/dL [facility] Protein, Total 6.3 6.1 - 8.0 g/dL [facility] Albumin 3.5 3.2 - 5.2 g/dL [facility] Aspartate Aminotransferase 1,435(H) 0 - 30 unit/L [facility] Alanine Aminotransferase 1,174(H) 0 - 30 unit/L [facility] Alkaline Phosphatase 100 35 - 105 unit/L [facility] Bilirubin, Total 0.9 0.2 - 1.3 mg/dL [facility] Est Glomerular Filtration Rate 27(L) >=60 mL/min/1. 73 m?? [facility] Comment: This patient's estimated [...] Lab Radha Hollins MD CHEMISTRY ORDERABL ES [facility] [place] [address] * (ABNORMAL) Coox2 (05/12/2023 5:08 AM EDT) pO2, Coox 24 mmHg [facility] Hgb Blood Gas 10.4(L) 11.7 - 15.5 g/dL [facility] Oxyhemoglobin, Coox 30.7 % [facility] Carboxyhemoglo bin, Coox 0.3 % [facility] Comment: Nonsmokers: 0.5-1.5% COHB Smokers: Variable, but usually less than 10% Toxic: 20-30% COHB Lethal: Greater than 60% COHB Methemoglobin, Coox 0.8 <=1.5 % [facility] Source Coox Mixed Venous [facility] Blood 05/12/2023 5:08 AM EDT 05/12/2023 5:08 AM EDT Radha Hollins MD POINT OF CARE TEST ORDERABLES Performing Organization Address City/[facility] Co de Phone Number [facility] [place] [address] * (ABNORMAL) Coox2 (05/12/2023 3:21 AM EDT) pO2, Coox 25 mmHg [facility] Hgb Blood Gas 10.8(L) 11.7 - 15.5 g/dL [facility] Oxyhemoglobin, Coox 32.7 % [facility] Carboxyhemoglo bin, Coox 0.3 % [facility] Comment: Nonsmokers: 0.5-1.5% COHB Smokers: Variable, but usually less than 10% Toxic: 20-30% COHB Lethal: Greater than 60% COHB Methemoglobin, Coox 0.7 <=1.5 % [facility] Source Coox Mixed Venous [facility] Blood 05/12/2023 3:21 AM EDT 05/12/2023 3:21 AM EDT Radha Hollins MD POINT OF CARE TEST ORDERABLES Performing Organization Address City/[facility] Co de Phone Number [facility] [place] [address] * (ABNORMAL) BLOOD GAS 2 ARTERIAL (05/12/2023 3:18 AM EDT) pH, Arterial 7.34(L) 7.35 - 7.45 [facility] PCO2, Arterial 30(L) 35 - 45 mmHg [facility] PO2, Arterial 72(L) 85 - 104 mmHg [facility] Bicarbonate, Arterial 16.0(L) 20.0 - 26.0 mmol/L [facility] Base Excess, Arterial -9.8(L) -3.0 - 3.0 mmol/L [facility] Hgb Blood Gas 11.0(L) 11.7 - 15.5 g/dL [facility] Oxyhemoglobin, Arterial 89.8(L) 94.0 - 97.0 % [facility] Carboxyhemoglob in, Arterial 0.3 % [facility] Comment: Nonsmokers: 0.5-1.5% COHB Smokers: Variable, but usually less than 10% Toxic: 20-30% COHB Lethal: Greater than 60% COHB Methemoglobin, Arterial 0.7 <=1.5 % [facility] Na Whole Blood 131(L) 135 - 145 mmol/L [facility] K Whole Blood 4.2 3.5 - 5.0 mmol/L [facility] Comment: Please note: Patients with WBC >100,000 may have falsely elevated Potassium levels. Contact the Clinical Chemistry Laboratory if there are any questions. ICa Whole Blood 1.12(L) 1.15 - 1.33 mmol/L [facility] Comment: Note: ??Total bilirubin higher than 20 mg/dL may lead to falsely low ionized calcium. CL Whole Blood 100 98 - 107 mmol/L [facility] Gluc Whole Bld 160 65 - 199 mg/dL [facility] Comment:Diabetes: >=200 mg/d L plus symptoms. Lactate WB 2.7(H) 0.5 - 2.2 mmol/L [facility] Flow Art 5.0 LPM [facility] Blood 05/12/2023 3:18 AM EDT 05/12/2023 3:18 AM EDT Radha Hollins MD POINT OF CARE TEST ORDERABLES [facility] [place] [address] * (ABNORMAL) Coox2 (05/12/2023 1:14 AM EDT) pO2, Coox 28 mmHg [facility] Hgb Blood Gas 10.9(L) 11.7 - 15.5 g/dL [facility] Oxyhemoglobin, Coox 37.3 % [facility] Carboxyhemoglo bin, Coox 0.3 % [facility] [facility] Comment: Nonsmokers: 0.5-1.5% COHB Smokers: Variable, but usually less than 10% Toxic: 20-30% COHB Lethal: Greater than 60% COHB Methemoglobin, Coox 0.5 <=1.5 % [facility] Source Coox Mixed Venous [facility] Blood 05/12/2023 1:14 AM EDT 05/12/2023 1:14 AM EDT Radha Hollins MD POINT OF CARE TEST ORDERABLES [facility] [place] [address] * (ABNORMAL) BLOOD GAS 2 ARTERIAL (05/12/2023 1:06 AM EDT) pH, Arterial 7.34(L) 7.35 - 7.45 [facility] PCO2, Arterial 30(L) 35 - 45 mmHg [facility] PO2, Arterial 81(L) 85 - 104 mmHg [facility] Bicarbonate, Arterial 15.7(L) 20.0 - 26.0 mmol/L [facility] Base Excess, Arterial -10.1(L) -3.0 - 3.0 mmol/L [facility] Hgb Blood Gas 11.0(L) 11.7 - 15.5 g/dL [facility] Oxyhemoglobin, Arterial 92.3(L) 94.0 - 97.0 % [facility] Carboxyhemoglob in, Arterial 0.2 % [facility] Comment: Nonsmokers: 0.5-1.5% COHB Smokers: Variable, but usually less than 10% Toxic: 20-30% COHB Lethal: Greater than 60% COHB Methemoglobin, Arterial 0.6 <=1.5 % [facility] Na Whole Blood 131(L) 135 - 145 mmol/L [facility] K Whole Blood 4.2 3.5 - 5.0 mmol/L [facility] Comment: Please note: Patients with WBC >100,000 may have falsely elevated Potassium levels. Contact the Clinical Chemistry Laboratory if there are any questions. ICa Whole Blood 1.13(L) 1.15 - 1.33 mmol/L [facility] Comment: Note: ??Total bilirubin higher than 20 mg/dL may lead to falsely low ionized calcium. CL Whole Blood 99 98 - 107 mmol/L [facility] Gluc Whole Bld 132 65 - 199 mg/dL [facility] Comment:Diabetes: >=200 mg/d L plus symptoms. Lactate WB 2.7(H) 0.5 - 2.2 mmol/L [facility] Flow Art 5.0 LPM [facility] Blood 05/12/2023 1:06 AM EDT 05/12/2023 1:06 AM EDT Radha Hollins MD POINT OF CARE TEST ORDERABLES Performing Organization Address City/State/[facility] Co de Phone Number [facility] [place] [address] * (ABNORMAL) Differential, Automated (05/12/2023 1:05 AM EDT) Neutrophil % 83.3 % [facility] Neutrophil Absolute 7.49(H) 1.70 - 6.10 x10(3)/mc L [facility] Lymph % 7.1 % [facility] Lymphocytes Abs 0.6(L) 0.9 - 3.2 x10(3)/mc L [facility] Monocyte % 8.9 % [facility] Monocyte Abs 0.8 0.3 - 0.9 x10(3)/mc L [facility] Eos % 0.0 % [facility] Eosinophils Abs 0.0 0.0 - 0.4 x10(3)/mc L [facility] Basophil % 0.1 % [facility] Baso Absolute 0.0 0.0 - 0.1 x10(3)/mc L [facility] Immature Gran % 0.60 % [facility] Comment: Immature granulocytes(IG's)percentage and absolute count will include metamyelocytes, myelocytes, and promyelocytes. Blood smears from CBCs yielding IG's will be scanned manually for concordance. If this scan disagrees with the automated IG or if promyelocytes are noted, a manual differential will be performed. Immature Gran Absolute 0.05(H) 0.00 - 0.04 x10(3)/mc L [facility] Blood 05/12/2023 1:05 AM EDT 05/12/2023 1:15 AM EDT Narrative Resulting Agency Comment Spec In Lab Gianni Fletcher MD HEMATOLOGY ORDERABLE S [facility] [place] [address] * (ABNORMAL) Hemogram (05/12/2023 1:05 AM EDT) White Blood Cell 9.0 4.0 - 9.5 x10(3)/mc L [facility] Red Blood Cell 3.01(L) 4.00 - 5.21 x10(6)/ L [facility] Hemoglobin 9.8(L) 11.7 - 15.5 g/dL [facility] Hematocrit 28.7(L) 35.7 - 45.8 % [facility] Mean Cell Volume 95.3(H) 82.6 - 94.4 fL [facility] Mean Cell Hemoglobin 32.6(H) 27.1 - 32.0 pg [facility] Mean Cell Hemoglobin Concentration 34.1 31.7 - 35.0 g/dL [facility] Platelet 186 145 - 357 x10(3)/mc L [facility] RDW Standard Deviation 43.7 37.0 - 46.0 fL [facility] RDW coefficient of variation 12.7 11.5 - 14.1 % [facility] Mean Platelet Volume 10.3 7.6 - 12.9 fL [facility] NRBC% auto 0.0 % [facility] NRBC Absolute 0.000 0.000 - 0.000 x10(3)/mc L [facility] Blood 05/12/2023 1:05 AM EDT 05/12/2023 1:15 AM EDT Narrative Resulting Agency Comment Spec In Lab Gianni Fletcher MD HEMATOLOGY ORDERABLE S [facility] [place] [address] * (ABNORMAL) Comprehensive metabolic panel (non-fasting) (05/12/2023 1:05 AM EDT) Glucose 141 65 - 199 mg/dL [facility] Comment:Diabetes: >=200 mg/d L plus symptoms Blood Urea Nitrogen 63(H) 8 - 18 mg/dL [facility] Creatinine 1.86(H) 0.70 - 1.20 mg/dL [facility] Sodium 131(L) 135 - 145 mmol/L [facility] Potassium 4.4 3.5 - 5.0 mmol/L [facility] Comment: Please note: ??Patients with WBC >100,000 may have falsely elevated Potassium levels. ??For accurate Potassium quantification in these patients send serum separator tube (gold top) for subsequent determinations. ??Contact the Clinical Chemistry Laboratory if there are any questions. Chloride 96(L) 98 - 107 mmol/L [facility] Carbon Dioxide 14(L) 22 - 31 mmol/L [facility] Anion Gap 21(H) 5 - 15 mmol/L [facility] Calcium 9.0 8.5 - 10.5 mg/dL [facility] Protein, Total 6.6 6.1 - 8.0 g/dL [facility] Albumin 3.9 3.2 - 5.2 g/dL [facility] Aspartate Aminotransferase 1,227(H) 0 - 30 unit/L [facility] Alanine Aminotransferase 1,097(H) 0 - 30 unit/L [facility] Alkaline Phosphatase 108(H) 35 - 105 unit/L [facility] Bilirubin, Total 1.0 0.2 - 1.3 mg/dL [facility] Est Glomerular Filtration Rate 29(L) >=60 mL/min/1. 73 m?? [facility] Comment: This patient's estimated [...] Lab Radha Hollins MD [place] [address] * XR Chest One View (05/12/2023 1:00 [...] questions please contact the health care management associate that requested your imaging first. ? [...] have questions please contactthe health care management associate that requested your imaging first. Radha Hollins MD IMG DX ORDERABLES * (ABNORMAL) Coox2 (05/12/2023 12:30 AM EDT) pO2, Coox 22 mmHg [facility] Hgb Blood Gas 10.9(L) 11.7 - 15.5 g/dL [facility] Oxyhemoglobin, Coox 25.1 % [facility] Carboxyhemoglo bin, Coox 0.3 % [facility] Comment: Nonsmokers: 0.5-1.5% COHB Smokers: Variable, but usually less than 10% Toxic: 20-30% COHB Lethal: Greater than 60% COHB Methemoglobin, Coox 1.4 <=1.5 % [facility] Source Coox Mixed Venous [facility] Blood 05/12/2023 12:3 0 AM EDT 05/12/2023 12:30 AM EDT Radha Hollins MD POINT OF CARE TEST ORDERABLES [facility] [place] [address] * XR Chest One View (05/11/2023 11:45 [...] questions please contact the health care management associate that requested your imaging first. ? [...] have questions please contactthe health care management associate that requested your imaging first. Radha Hollins MD IMG DX ORDERABLES * (ABNORMAL) Lactate, whole blood, [place] [place] [place] (05/11/2023 7:40 PM EDT) Lactate WB 4.8(Critic al) 0.5 - 2.2 mmol/L [facility] Comment:Called by: IMM, Read back by: Magdalena Baires, Date/Time:05/11/23 19:54. Blood 05/11/2023 7:40 PM EDT 05/11/2023 7:49 PM EDT Narrative Resulting Agency Comment Spec In Lab Radha Hollins MD CHEMISTRY ORDERABL ES Performing Organization Address City/[facility]/ZIP Co de Phone Number [facility] [place] [address] * Urine culture (05/11/2023 7:22 PM EDT) Pathologist [facility] Urine Culture 50,000-99,000 cfu/ml Normal mucosal herman Susceptibilit y testing not routinely performed for Coagulase Negative Staphylococcu s species and other Gram Positive organisms from urine. [facility] Clean Catch Urine 05/11/2023 7:22 PM EDT 05/11/2023 8:50 PM EDT Narrative Resulting Agency Comment Spec In Lab Brody Kaplan APRN MICROBIOLOGY - GENE RAL ORDERABLES Performing Organization Address [facility]/ZIP Co de Phone Number [facility] [place] [address] * (ABNORMAL) Urinalysis Microscopic Exam (05/11/2023 7:22 PM EDT) RBC, Urine 2 0 - 4 /HPF [facility] WBC, Urine >100(H) 0 - 5 /HPF [facility] Bacteria, Urine Occasional (A) None /HPF [facility] Squamous Epithelial Cells Raw Data, Urine 5(H) <=4 /HPF [facility] Hyaline Casts, Urine 3(H) 0 - 2 /LPF [facility] Clean Catch Urine 05/11/2023 7:22 PM EDT 05/11/2023 7:31 PM EDT Narrative Resulting Agency Comment Spec In Lab Brody Kaplan SOFTWARE ADMINISTRATOR URINE ORDERABLES [facility] [place] [address] * (ABNORMAL) Urinalysis with reflex Culture (05/11/2023 7:22 PM EDT) Glucose, Urine Dipstick Negative Negative mg/dL [facility] Protein, Urine Dipstick Trace(A) Negative mg/dL [facility] Bilirubin, Urine Dipstick Negative Negative mg/dL [facility] Comment: Clinical correlation required for positive Urine Bilirubin results as false positive may occur with some drugs and drug related products. If a false positive is suspected a serum total bilirubin should be considered if clinically indicated. Urobilinogen, Urine Dipstick Normal Normal mg/dL [facility] pH, Urn (dipstick) 5.0 5.0 - 8.0 [facility] Blood, Urine Dipstick Trace(A) Negative mg/dL [facility] Ketone, Urine Dipstick Negative Negative mg/dL [facility] Nitrite, Urine Dipstick Negative Negative [facility] Leukocytes, Urine Dipstick Moderate(A) Negative mcL [facility] Appearance, Urine Dipstick Cloudy(A) Clear [facility] Specific Electra Urine Automated >=1.030(A) 1.005 - 1.030 [facility] Color, Urine Dipstick Yellow Yellow [facility] Reflex to Culture Yes [facility] Clean Catch Urine 05/11/2023 7:22 PM EDT 05/11/2023 7:31 PM EDT Narrative Resulting Agency Comment Spec In Lab Brody Kaplan SOFTWARE ADMINISTRATOR URINE ORDERABLES [facility] [place] [address] * (ABNORMAL) pro-Brain Natriuretic Peptide (05/11/2023 7:11 PM EDT) NT-proBNP >35,000(H) <=124 pg/mL [facility] Blood 05/11/2023 7:11 PM EDT 05/11/2023 7:26 PM EDT Narrative Resulting Agency Comment Spec In Lab Radha Hollins MD CHEMISTRY ORDERABL ES Performing Organization Address City/[facility]/ZIP Co de Phone Number [facility] [place] [address] * (ABNORMAL) Lactate, whole blood, [place] to lab [place] [place] [place] (05/11/2023 2:47 PM EDT) Lactate WB 2.9(H) 0.5 - 2.2 mmol/L [facility] Blood 05/11/2023 2:47 PM EDT 05/11/2023 2:53 PM EDT Narrative Resulting Agency Comment Spec In Lab Juan Luis Gonzalez MD CHEMISTRY ORDERABLES Performing Organization Address [facility] Co de Phone Number [facility] [place] [address] * (ABNORMAL) CT Angiogram Abdomen & Pelvis [...] questions please contact the health care management associate that requested your imaging first. ? [...] questions please contact the health care management associate that requested your imaging first. ? Electronically signed by: Cullen Narayanan MD, [facility] ([phone]), at 05/11/2023 4:37 PM Narrative 05/11/2023 4:37 [...] 610 mm2 Circumference: 88 mm Calcification: Mild Geybnei-np-[id number] height: Left: 6.2 mm Right: 5.8 mm THORACIC AORTA Description: Normal course and caliber. ??Mild diffuse atherosclerotic changes. No acute aortopathy noted. [employer]en Boat [employer] dimensions: Aortic root: 27.6 mm Max ascending aorta: 30.5 mm x 27.7 mm Suggested fluoroscopic angulation based on line extending through the nadirs of the three sinuses of Valsalva, set equidistant: ?? [place]ESE ??9 degrees; cranial 7 degrees MITRAL: Mitral [...] 610 mm2 Circumference: 88 mm Calcification: Mild Yrjxkbk-pe-tgpdexvs height: Left: 6.2 mm Right: 5.8 mm THORACIC AORTA Description: Normal course and caliber. Mild diffuse atheroscleroticchanges. No acute aortopathy noted. [employer]en Boat Builder dimensions: Aortic root: 27.6 mm Max ascending aorta: 30.5 mm x 27.7 mm Suggested fluoroscopic angulation based on line extending through thenadirs of the three sinuses of Valsalva, set equidistant: [place]ESE 9 degrees; cranial 7 degrees MITRAL: Mitral [...] have questions please contactthe health care management associate that requested your imaging first. Electronically signed by: Cullen Narayanan MD, [facility]([phone]), at 05/11/2023 4:37 PM Antelmo Sharma MD IMG CT ORDERABLES * (ABNORMAL) Lactate, whole blood, send to lab ([facility] [place] [place] (05/11/2023 9:29 AM EDT) [facility] Lactate WB 3.1(H) 0.5 - 2.2 mmol/L [facility] Blood 05/11/2023 9:29 AM EDT 05/11/2023 9:38 AM EDT Narrative Resulting Agency Comment Spec In Lab Juan Luis Gonzalez MD CHEMISTRY ORDERABLES [facility] [place] [address] * (ABNORMAL) Differential, Automated (05/11/2023 4:42 AM EDT) Pathologist [facility] Neutrophil % 78.1 % [facility] Neutrophil Absolute 5.46 1.70 - 6.10 x10(3)/mc L [facility] Lymph % 10.6 % [facility] Lymphocytes Abs 0.7(L) 0.9 - 3.2 x10(3)/mc L [facility] Monocyte % 9.6 % [facility] Monocyte Abs 0.7 0.3 - 0.9 x10(3)/mc L [facility] Eos % 0.0 % [facility] Eosinophils Abs 0.0 0.0 - 0.4 x10(3)/mc L [facility] Basophil % 0.4 % [facility] Baso Absolute 0.0 0.0 - 0.1 x10(3)/mc L [facility] Immature Gran % 1.30 % [facility] Comment: Immature granulocytes(IG's)percentage and absolute count will include metamyelocytes, myelocytes, and promyelocytes. Blood smears from CBCs yielding IG's will be scanned manually for concordance. If this scan disagrees with the automated IG or if promyelocytes are noted, a manual differential will be performed. Immature Gran Absolute 0.09(H) 0.00 - 0.04 x10(3)/ L [facility] Blood 05/11/2023 4:42 AM EDT 05/11/2023 4:49 AM EDT Narrative Resulting Agency Comment Spec In Lab Klaudia Reid MD HEMATOLOGY OR DERABLES Performing Organization Address City/State/[facility] Co de Phone Number [facility] [place] [address] * (ABNORMAL) Hemogram (05/11/2023 4:42 AM EDT) White Blood Cell 7.0 4.0 - 9.5 x10(3)/mc L [facility] Red Blood Cell 3.44(L) 4.00 - 5.21 x10(6)/mc L [facility] Hemoglobin 11.1(L) 11.7 - 15.5 g/dL [facility] Hematocrit 32.7(L) 35.7 - 45.8 % [facility] Mean Cell Volume 95.1(H) 82.6 - 94.4 fL [facility] Mean Cell Hemoglobin 32.3(H) 27.1 - 32.0 pg [facility] Mean Cell Hemoglobin Concentration 33.9 31.7 - 35.0 g/dL [facility] Platelet 165 145 - 357 x10(3)/mc L [facility] RDW Standard Deviation 43.1 37.0 - 46.0 fL [facility] RDW coefficient of variation 12.7 11.5 - 14.1 % [facility] Mean Platelet Volume 10.1 7.6 - 12.9 fL [facility] NRBC% auto 0.0 % [facility] NRBC Absolute 0.000 0.000 - 0.000 x10(3)/mc L [facility] Blood 05/11/2023 4:42 AM EDT 05/11/2023 4:49 AM EDT Narrative Resulting Agency Comment Spec In Lab Klaudia Reid MD HEMATOLOGY OR DERABLES Performing Organization Address [facility] Co de Phone Number [facility] [place] [address] * Heparin (unfractionated) Level (05/11/2023 4:42 AM EDT) UF Heparin 0.46 IU/mL [facility] Comment: Heparin (anti-Xa) levels [...] LES Performing Organization Address [facility] Co de Phone Number [facility] [place] [address] * (ABNORMAL) Comprehensive metabolic panel (non-fasting) (05/11/2023 4:42 AM EDT) Glucose 143 65 - 199 mg/dL [facility] Comment:Diabetes: >=200 mg/d L plus symptoms Blood Urea Nitrogen 42(H) 8 - 18 mg/dL [facility] Creatinine 1.24(H) 0.70 - 1.20 mg/dL [facility] Sodium 134(L) 135 - 145 mmol/L [facility] Potassium 4.6 3.5 - 5.0 mmol/L [facility] Comment: Please note: ??Patients with WBC >100,000 may have falsely elevated Potassium levels. ??For accurate Potassium quantification in these patients send serum separator tube (gold top) for subsequent determinations. ??Contact the Clinical Chemistry Laboratory if there are any questions. Chloride 99 98 - 107 mmol/L [facility] Carbon Dioxide 14(L) 22 - 31 mmol/L [facility] Anion Gap 21(H) 5 - 15 mmol/L [facility] Calcium 9.6 8.5 - 10.5 mg/dL [facility] Protein, Total 7.2 6.1 - 8.0 g/dL [facility] Albumin 3.7 3.2 - 5.2 g/dL [facility] Aspartate Aminotransferase 144(H) 0 - 30 unit/L [facility] Comment:result rechecked-ssc Alanine Aminotransferase 130(H) 0 - 30 unit/L [facility] Comment:result rechecked-ssc Alkaline Phosphatase 72 35 - 105 unit/L [facility] Bilirubin, Total 0.8 0.2 - 1.3 mg/dL [facility] Est Glomerular Filtration Rate 48(L) >=60 mL/min/1. 73 m?? [facility] Comment: This patient's estimated [...] MD CHEMISTRY ORDERABL ES Performing Organization Address City/[facility]/ZIP Co de Phone Number [facility] [place] [address] * EKG 12 Lead (05/10/2023 1:16 PM EDT) Ventricular rate 118 BPM MUSE SYSTEM Atrial Rate 118 BPM MUSE SYSTEM P-R Interval 152 ms MUSE SYSTEM QRS Duration 104 ms MUSE SYSTEM Q-T Interval 316 ms MUSE SYSTEM QTC Calculated (Bezet) 442 ms MUSE SYSTEM Calculated P [place] 29 degrees MUSE SYSTEM Calculated R [place] 18 degrees MUSE SYSTEM Calculated T [place] -173 degrees MUSE SYSTEM INTERPRETATION Sinus tachycardia [...] Anterior leads Confirmed by MD Villareal Danette ([id number]) on 05/10/2023 8:47:46 PM MUSE SYSTEM 05/10/2023 1:16 PM EDT 05/10/2023 8:47 PM EDT Juan Luis Gonzalez MD ECG ORDERABLES Performing Organization Address [facility] Co de Phone Number M[facility] SYSTEM * Lactate, whole blood, [place] to lab [place] [place] (05/10/2023 11:52 AM EDT) Lactate WB 1.8 0.5 - 2.2 mmol/L [facility] Blood 05/10/2023 11:5 2 AM EDT 05/10/2023 12:13 PM EDT Narrative Resulting Agency Comment Spec In Lab Juan Luis Gonzalez MD CHEMISTRY ORDERABLES Performing Organization Address City/[facility]/ZIP Co de Phone Number [facility] [place] [address] * XR Chest One View (05/10/2023 11:16 [...] questions please contact the health care management associate that requested your imaging first. ? Electronically signed by: ALIX RUVALCABA MD, [facility] ([phone]), at 05/10/2023 1:25 PM Narrative 05/10/2023 1:25 [...] have questions please contactthe health care management associate that requested your imaging first. Electronically signed by: ALIX RUVALCABA MD, [facility]([phone]), at 05/10/2023 1:25 PM Juan Luis Gonzalez MD IMG DX ORDERABLES * EKG 12 Lead (05/10/2023 7:59 AM EDT) Pathologist [facility] Ventricular rate 115 BPM MUSE SYSTEM Atrial Rate 115 BPM MUSE SYSTEM P-R Interval 142 ms MUSE SYSTEM QRS Duration 102 ms MUSE SYSTEM Q-T Interval 322 ms MUSE SYSTEM QTC Calculated (Bezet) 445 ms MUSE SYSTEM Calculated P [place] 36 degrees MUSE SYSTEM Calculated R [place] 28 degrees MUSE SYSTEM Calculated T [place] -119 degrees MUSE SYSTEM INTERPRETATION Sinus tachycardia with frequent Premature ventricular complexes and Fusion complexes ST & T wave abnormality, consider lateral ischemia Abnormal ECG When compared with ECG of 08-MAY-2023 15:51, No significant change was found I personally reviewed the tracing and edited the fellows interpretation Confirmed by fellow MD Anitha, [facility] () on 05/11/2023 6:19:54 AM Confirmed by MD Tram, Chel ([id number]) on 05/11/2023 3:18:56 PM MUSE SYSTEM 05/10/2023 7:59 AM EDT 05/11/2023 3:18 PM EDT Radha Hollins MD ECG ORDERABLES MUSE SYSTEM * (ABNORMAL) Differential, Automated (05/10/2023 2:28 AM EDT) Neutrophil % 77.1 % [facility] Neutrophil Absolute 4.01 1.70 - 6.10 x10(3)/mc L [facility] Lymph % 14.0 % [facility] Lymphocytes Abs 0.7(L) 0.9 - 3.2 x10(3)/ L [facility] Monocyte % 7.7 % [facility] Monocyte Abs 0.4 0.3 - 0.9 x10(3)/[facility] Eos % 0.4 % [facility] Eosinophils Abs 0.0 0.0 - 0.4 x10(3)/[facility] Basophil % 0.4 % [facility] Baso Absolute 0.0 0.0 - 0.1 x10(3)/[facility] LABORATORY Immature Gran % 0.40 % [facility] Comment: Immature granulocytes(IG's)percentage and absolute count will include metamyelocytes, myelocytes, and promyelocytes. Blood smears from CBCs yielding IG's will be scanned manually for concordance. If this scan disagrees with the automated IG or if promyelocytes are noted, a manual differential will be performed. Immature Gran Absolute 0.02 0.00 - 0.04 x10(3)/[facility] LABORATORY Blood 05/10/2023 2:28 AM EDT 05/10/2023 2:57 AM EDT Narrative Resulting Agency Comment Spec In Lab Klaudia Reid MD HEMATOLOGY OR DERABLES Performing Organization Address City/State/[facility] Co de Phone Number [facility] [place] [address] * (ABNORMAL) Hemogram (05/10/2023 2:28 AM EDT) White Blood Cell 5.2 4.0 - 9.5 x10(3)/[facility] LABORATORY Red Blood Cell 3.11(L) 4.00 - 5.21 x10(6)/[facility] LABORATORY Hemoglobin 10.2(L) 11.7 - 15.5 g/dL [facility] Hematocrit 30.2(L) 35.7 - 45.8 % [facility] Mean Cell Volume 97.1(H) 82.6 - 94.4 fL [facility] Mean Cell Hemoglobin 32.8(H) 27.1 - 32.0 pg [facility] Mean Cell Hemoglobin Concentration 33.8 31.7 - 35.0 g/dL [facility] Platelet 151 145 - 357 x10(3)/mc L [facility] RDW Standard Deviation 44.9 37.0 - 46.0 fL [facility] RDW coefficient of variation 12.8 11.5 - 14.1 % [facility] Mean Platelet Volume 9.8 7.6 - 12.9 fL [facility] NRBC% auto 0.0 % [facility] NRBC Absolute 0.000 0.000 - 0.000 x10(3)/mc L [facility] Blood 05/10/2023 2:28 AM EDT 05/10/2023 2:57 AM EDT Narrative Resulting Agency Comment Spec In Lab Klaudia Reid MD HEMATOLOGY OR DERABLES [facility] [place] [address] * (ABNORMAL) Comprehensive metabolic panel (non-fasting) (05/10/2023 2:28 AM EDT) Pathologist [facility] Glucose 100 65 - 199 mg/dL [facility] Comment:Diabetes: >=200 mg/d L plus symptoms Blood Urea Nitrogen 30(H) 8 - 18 mg/dL [facility] Creatinine 0.90 0.70 - 1.20 mg/dL [facility] Sodium 134(L) 135 - 145 mmol/L [facility] Potassium 4.1 3.5 - 5.0 mmol/L [facility] Comment: Please note: ??Patients with WBC >100,000 may have falsely elevated Potassium levels. ??For accurate Potassium quantification in these patients send serum separator tube (gold top) for subsequent determinations. ??Contact the Clinical Chemistry Laboratory if there are any questions. Chloride 102 98 - 107 mmol/L [facility] Carbon Dioxide 20(L) 22 - 31 mmol/L [facility] Anion Gap 12 5 - 15 mmol/L [facility] Calcium 9.3 8.5 - 10.5 mg/dL [facility] Protein, Total 6.4 6.1 - 8.0 g/dL [facility] Albumin 3.7 3.2 - 5.2 g/dL [facility] Aspartate Aminotransferase 24 0 - 30 unit/L [facility] Alanine Aminotransferase 14 0 - 30 unit/L [facility] Alkaline Phosphatase 70 35 - 105 unit/L [facility] Bilirubin, Total 0.5 0.2 - 1.3 mg/dL [facility] Est Glomerular Filtration Rate 70 >=60 mL/min/1. 73 m?? [facility] Comment: This patient's estimated GFR [...] Lab Radha Hollins MD CHEMISTRY ORDERABL ES [facility] [place] [address] * Heparin (unfractionated) Level (05/10/2023 2:28 AM EDT) UF Heparin 0.37 IU/mL [facility] Comment: Heparin (anti-Xa) levels [...] Lab Radha Hollins MD HEMATOLOGY [place] [address] * (ABNORMAL) Differential, Automated (05/09/2023 4:00 AM EDT) Neutrophil % 81.7 % [facility] Neutrophil Absolute 5.26 1.70 - 6.10 x10(3)/mc L [facility] Lymph % 10.7 % [facility] Lymphocytes Abs 0.7(L) 0.9 - 3.2 x10(3)/mc L [facility] Monocyte % 6.5 % [facility] Monocyte Abs 0.4 0.3 - 0.9 x10(3)/mc L [facility] Eos % 0.5 % [facility] Eosinophils Abs 0.0 0.0 - 0.4 x10(3)/mc L [facility] Basophil % 0.3 % [facility] Baso Absolute 0.0 0.0 - 0.1 x10(3)/mc L [facility] Immature Gran % 0.30 % [facility] Comment: Immature granulocytes(IG's)percentage and absolute count will include metamyelocytes, myelocytes, and promyelocytes. Blood smears from CBCs yielding IG's will be scanned manually for concordance. If this scan disagrees with the automated IG or if promyelocytes are noted, a manual differential will be performed. Immature Gran Absolute 0.02 0.00 - 0.04 x10(3)/mc L [facility] Blood 05/09/2023 4:00 AM EDT 05/09/2023 4:19 AM EDT Narrative Resulting Agency Comment Spec In Lab Klaudia Reid MD HEMATOLOGY OR DERABLES Performing Organization Address City/[facility]/ZIP [place] [address] * (ABNORMAL) Hemogram (05/09/2023 4:00 AM EDT) White Blood Cell 6.4 4.0 - 9.5 x10(3)/mc L [facility] Red Blood Cell 3.15(L) 4.00 - 5.21 x10(6)/mc L [facility] Hemoglobin 10.2(L) 11.7 - 15.5 g/dL [facility] Hematocrit 30.3(L) 35.7 - 45.8 % [facility] Mean Cell Volume 96.2(H) 82.6 - 94.4 fL [facility] Mean Cell Hemoglobin 32.4(H) 27.1 - 32.0 pg [facility] Mean Cell Hemoglobin Concentration 33.7 31.7 - 35.0 g/dL [facility] Platelet 151 145 - 357 x10(3)/mc L [facility] RDW Standard Deviation 44.7 37.0 - 46.0 fL [facility] RDW coefficient of variation 12.8 11.5 - 14.1 % [facility] Mean Platelet Volume 9.4 7.6 - 12.9 fL [facility] NRBC% auto 0.0 % [facility] NRBC Absolute 0.000 0.000 - 0.000 x10(3)/ L [facility] Blood 05/09/2023 4:00 AM EDT 05/09/2023 4:19 AM EDT Narrative Resulting Agency Comment Spec In Lab Klaudia Reid MD HEMATOLOGY OR DERABLES Performing Organization Address City/State/[facility] Co de Phone Number [facility] [place] [address] * Heparin (unfractionated) Level (05/09/2023 4:00 AM EDT) UF Heparin 0.47 IU/mL [facility] Comment: Heparin (anti-Xa) levels [...] Lab Radha Hollins MD HEMATOLOGY ORDERAB LES [facility] [address] [facility] [address] [place] [address] * (ABNORMAL) Comprehensive metabolic panel (non-fasting) (05/09/2023 4:00 AM EDT) Glucose 108 65 - 199 mg/dL [facility] Comment:Diabetes: >=200 mg/d L plus symptoms Blood Urea Nitrogen 31(H) 8 - 18 mg/dL [facility] Creatinine 1.03 0.70 - 1.20 mg/dL [facility] Sodium 137 135 - 145 mmol/L [facility] Potassium 4.4 3.5 - 5.0 mmol/L [facility] Comment: Please note: ??Patients with WBC >100,000 may have falsely elevated Potassium levels. ??For accurate Potassium quantification in these patients send serum separator tube (gold top) for subsequent determinations. ??Contact the Clinical Chemistry Laboratory if there are any questions. Chloride 102 98 - 107 mmol/L [facility] Carbon Dioxide 20(L) 22 - 31 mmol/L [facility] Anion Gap 15 5 - 15 mmol/L [facility] Calcium 9.3 8.5 - 10.5 mg/dL [facility] Protein, Total 6.6 6.1 - 8.0 g/dL [facility] Albumin 3.8 3.2 - 5.2 g/dL [facility] Aspartate Aminotransferase 32(H) 0 - 30 unit/L [facility] Alanine Aminotransferase 18 0 - 30 unit/L [facility] Alkaline Phosphatase 78 35 - 105 unit/L [facility] Bilirubin, Total 0.5 0.2 - 1.3 mg/dL [facility] Est Glomerular Filtration Rate 60 >=60 mL/min/1. 73 m?? [facility] Comment: This patient's estimated [...] Performing Organization Address [facility] Co de Phone Number [facility] [place] [address] * (ABNORMAL) pro-Brain Natriuretic Peptide (05/08/2023 4:00 PM EDT) NT-proBNP 25,503(H) <=124 pg/mL [facility] Blood Venous Draw / Unknown 05/08/2023 4:00 PM EDT 05/08/2023 4:25 PM EDT Narrative Resulting Agency Comment Spec In Lab Juan Luis Gonzalez MD CHEMISTRY ORDERABLES Performing Organization Address City/[facility] Co de Phone Number [facility] [place] [address] * Magnesium (05/08/2023 4:00 PM EDT) Magnesium 0.82 0.69 - 1.07 mmol/L [facility] Blood 05/08/2023 4:00 PM EDT 05/08/2023 4:06 PM EDT Narrative Resulting Agency Comment Spec In Lab Enrique Chua MD CHEMISTRY ORDERABLES Performing Organization Address [facility] Co de Phone Number [facility] [place] [address] * Potassium (05/08/2023 4:00 PM EDT) Potassium 3.9 3.5 - 5.0 mmol/L [facility] Comment: Please note: ??Patients with [...] MD CHEMISTRY ORDERABL ES Performing Organization Address [facility] [place] [address] * Heparin (unfractionated) Level (05/08/2023 4:00 PM EDT) UF Heparin 0.43 IU/mL [facility] Comment: Heparin (anti-Xa) levels [...] MD HEMATOLOGY ORDERAB LES Performing Organization Address [facility] Co de Phone Number [facility] [place] [address] * EKG 12 Lead (05/08/2023 3:51 PM EDT) Ventricular rate 98 BPM MUSE SYSTEM Atrial Rate 98 BPM MUSE SYSTEM P-R Interval 150 ms MUSE SYSTEM QRS Duration 102 ms MUSE SYSTEM Q-T Interval 358 ms MUSE SYSTEM QTC Calculated (Bezet) 457 ms MUSE SYSTEM Calculated P [place] 38 degrees MUSE SYSTEM Calculated R [place] 48 degrees MUSE SYSTEM Calculated T [place] -112 degrees MUSE SYSTEM INTERPRETATION Sinus rhythm with frequent and consecutive Premature ventricular and fusion complexes Septal infarct , age undetermined ST & T wave abnormality, consider anterolateral ischemia Abnormal ECG When compared with ECG of 09-NOV-2022 11:17, T wave inversion now evident in Anterolateral leads Confirmed by MD Harshil, Enrique Bell ([id number]) on 05/10/2023 8:11:46 AM MUSE SYSTEM 05/08/2023 3:51 PM EDT 05/10/2023 8:11 AM EDT Radha Hollins MD ECG ORDERABLES [facility] SYSTEM * (ABNORMAL) Differential, Automated (05/08/2023 11:38 AM EDT) Pathologist [facility] Neutrophil % 71.3 % [facility] Neutrophil Absolute 2.91 1.70 - 6.10 x10(3)/mc L [facility] Lymph % 19.1 % [facility] Lymphocytes Abs 0.8(L) 0.9 - 3.2 x10(3)/mc L [facility] Monocyte % 9.0 % [facility] Monocyte Abs 0.4 0.3 - 0.9 x10(3)/mc L [facility] Eos % 0.2 % [facility] Eosinophils Abs 0.0 0.0 - 0.4 x10(3)/mc L [facility] Basophil % 0.2 % [facility] Baso Absolute 0.0 0.0 - 0.1 x10(3)/mc L [facility] Immature Gran % 0.20 % [facility] Comment: Immature granulocytes(IG's)percentage and absolute count will include metamyelocytes, myelocytes, and promyelocytes. Blood smears from CBCs yielding IG's will be scanned manually for concordance. If this scan disagrees with the automated IG or if promyelocytes are noted, a manual differential will be performed. Immature Gran Absolute 0.01 0.00 - 0.04 x10(3)/mc L [facility] Blood 05/08/2023 11:3 8 AM EDT 05/08/2023 11:44 AM EDT Narrative Resulting Agency Comment Spec In Lab Lincoln Sal MD HEMATOLOGY ORDERA BLES [facility] [place] [address] * (ABNORMAL) Hemogram (05/08/2023 11:38 AM EDT) White Blood Cell 4.1 4.0 - 9.5 x10(3)/ L [facility] Red Blood Cell 3.05(L) 4.00 - 5.21 x10(6)/ L [facility] Hemoglobin 10.2(L) 11.7 - 15.5 g/dL [facility] Hematocrit 29.6(L) 35.7 - 45.8 % [facility] Mean Cell Volume 97.0(H) 82.6 - 94.4 fL [facility] Mean Cell Hemoglobin 33.4(H) 27.1 - 32.0 pg [facility] Mean Cell Hemoglobin Concentration 34.5 31.7 - 35.0 g/dL [facility] Platelet 136(L) 145 - 357 x10(3)/mc L [facility] RDW Standard Deviation 44.3 37.0 - 46.0 fL [facility] RDW coefficient of variation 12.6 11.5 - 14.1 % [facility] Mean Platelet Volume 9.4 7.6 - 12.9 fL [facility] NRBC% auto 0.0 % [facility] NRBC Absolute 0.000 0.000 - 0.000 x10(3)/ L [facility] Blood 05/08/2023 11:3 8 AM EDT 05/08/2023 11:44 AM EDT Narrative Resulting Agency Comment Spec In Lab Lincoln Sal MD HEMATOLOGY ORDERA BLES Performing Organization Address [facility] Co de Phone Number [facility] [place] [address] * TSH (05/08/2023 11:38 AM EDT) Thyroid Stimulating Hormone 1.27 0.27 - 4.20 mcIU/mL [facility] Comment: Reference Interval (mcIU/mL): Females: ??First Trimester: 0.23-3.88 ??Second Trimester: 0.22-3.90 ??Third Trimester: 0.44-4.66 Blood 05/08/2023 11:3 8 AM EDT 05/08/2023 11:44 AM EDT Narrative Resulting Agency Comment Spec In Lab Enrique Chua MD CHEMISTRY ORDERABLES Performing Organization Address [facility] Co de Phone Number [facility] [place] [address] * (ABNORMAL) Phosphorus (05/08/2023 11:38 AM EDT) Phosphorus 4.7(H) 2.5 - 4.5 mg/dL [facility] Blood 05/08/2023 11:3 8 AM EDT 05/08/2023 11:44 AM EDT Narrative Resulting Agency Comment Spec In Lab Enrique Chua MD CHEMISTRY ORDERABLES Performing Organization Address [facility] Co de Phone Number [facility] [place] [address] * Magnesium (05/08/2023 11:38 AM EDT) Magnesium 0.76 0.69 - 1.07 mmol/L [facility] Blood 05/08/2023 11:3 8 AM EDT 05/08/2023 11:44 AM EDT Narrative Resulting Agency Comment Spec In Lab Enrique Chau MD CHEMISTRY ORDERABLES Performing Organization Address [facility] Co de Phone Number [facility] [place] [address] * (ABNORMAL) Basic Metabolic Panel (non-fasting) (05/08/2023 11:38 AM EDT) Glucose 97 65 - 199 mg/dL [facility] Comment:Diabetes: >=200 mg/d L plus symptoms Blood Urea Nitrogen 27(H) 8 - 18 mg/dL [facility] Creatinine 1.02 0.70 - 1.20 mg/dL [facility] Sodium 139 135 - 145 mmol/L [facility] Potassium 4.2 3.5 - 5.0 mmol/L [facility] Comment: Please note: ??Patients with WBC >100,000 may have falsely elevated Potassium levels. ??For accurate Potassium quantification in these patients send serum separator tube (gold top) for subsequent determinations. ??Contact the Clinical Chemistry Laboratory if there are any questions. Chloride 105 98 - 107 mmol/L [facility] Carbon Dioxide 20(L) 22 - 31 mmol/L [facility] Anion Gap 14 5 - 15 mmol/L [facility] Calcium 9.4 8.5 - 10.5 mg/dL [facility] Est Glomerular Filtration Rate 60 >=60 mL/min/1. 73 m?? [facility] Comment: This patient's estimated [...] CHEMISTRY ORDERABLES Performing Organization Address [facility]/ZIP Co de Phone Number [facility] [place] [address] * ECHO COMPLETE (05/08/2023 11:02 AM EDT) EF 25 [facility] Anatomical Region Laterality Modality Cardiac Other 05/08/2023 10:0 3 AM EDT Narrative 05/08/2023 11:51 AM EDT ? Echocardiogram Report Name: PURNIMA THACKER ?Study Date: 05/08/2023 10:03 AMBP: 92/64 mmHg ? Patient Location: [facility]^CV29^A : 1955 ? Height: 155 cm ? Account: [id number] Age: 67 yrs ? Weight: 78 kg Gender: Female ?BSA: 1.8 m2 Ordering Physician: ENRIQUE CHUA Referring Physician: MARIO ALBERTO CHIN Performed By: CHUCKIE Canchola Reason For Study: SAVR Stenosis Exam Location: [facility]. Interpretation Summary -Left ventricle is severely dilated [...] worsening stenosis. Mitral regurgitation is similar. Procedure Complete-[id number]. Satisfactory quality. There is normal sinus rhythm. [...] Study Date: 0:03 AMBP: 92/64 mmHg Patient Location:[facility]^CV29^A : 1955 Height: 155 cm Account: [id number] Age: 67 yrs Weight: 78 kg Gender: Female BSA: 1.8 m2 Ordering Physician: ENRIQUE CHUA Referring Physician: MARIO ALBERTO CHIN Performed By: CHUCKIE Canchola Reason For Study: SAVR Stenosis Exam Location: [facility]. Interpretation Summary -Left ventricle is severely dilated [...] suggestsworsening stenosis. Mitral regurgitation is similar. Procedure Complete-[id number]. Satisfactory quality. There is normal sinus rhythm. 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 Mild coronary artery disease by [facility] 11/09/2022 Mixed connective tissue [...] ejection fraction Mild coronary artery disease by [facility] 11/09/2022 Stenosis of prosthetic [...] PRN, Starting on Wed05/12/23 at 0853, Until 05/12/23 at 0856, Intra-Operative [...] 1758 (New Bag - Provider: Gabino Calhoun, RN)1957 (Stopped - Provider: Favain Mckeon, VALDO) magnesium sulfate 2 g in [...] RN)2054 (Given - Provider: Favian Mckeon RN) 08 [...] Discontinued, Routine 0835 (Given - Provider: Gabino Calhoun, VALDO) 0900 (Not Given - Provider: Kia Gallego, [...] 2 tablet, Oral, DAILY, First dose on Wed05/13/23 at 2100, Until Discontinued, Post-op day 1, [...] post-op day 1 in the AM Give MI if unable to take PO, Routine Group [...] Routine documented in this encounter Care Teams Clam Treader Relationship Specialty Start Date End Date Magdalena Acosta MD [address] [place] [address] PCP - General Family Medicine 02/05/23 documented as of this encounter
--- OUTSIDE RECORDS SUMMARY | 2024-05-09 15:22 | XMS_ITS | Encounter Summary ---
Author Organization [facility] Address [facility] [place] [address] Care Team Providers Care Finishing Area Supervisor Name Role Phone Magdalena Acosta MD [...] [facility] [place] On[facility] [address] [place] [address] 05/12/2024 10:00 AM EDT Office Visit [place]ology [place] [address] Markel Borjas MD [facility] [address] [place] [address] 03/01/2025 4:15 PM EDT Office Visit Dermatology at [place] [address] [facility] [place] [phone] Marek Bonilla MD [address] [facility] [place] [address] documented as of this encounter Visit Diagnoses Not on filedocumented in this encounter Care Teams Finishing Area Supervisor Relationship Specialty Start Date End Date Magdalena Acosta MD [address] [place] [address] PCP - General Family Medicine 02/05/23 documented as of this encounter
--- OUTSIDE RECORDS SUMMARY | 2024-05-09 15:22 | XMS_ITS | Encounter Summary ---
Author Organization [facility] Address [facility] [place] [address] Care Team Providers Care Block Piler Name Role Phone Magdalena Acosta MD Primary Care Provider [phone] Encounter Details Date Type Department Care Team [...] Lab at [facility] Hematology Oncology [address] [place] [address] 05/12/2024 10:00 AM EDT Office Visit Hematology [place] [address] Markel Borjas MD [facility] [address] [place] [address] 03/01/2025 4:15 PM EDT Office Visit Dermatology at [place] [address] [facility] [place] [phone] Marek Bonilla MD [address] [facility] [place] [address] documented as of this encounter Visit Diagnoses Not on filedocumented in this encounter Care Teams Block Piler Relationship Specialty Start Date End Date Magdalena Acosta MD [address] [place] [address] PCP - General Family Medicine 02/05/23 documented as of this encounter
--- OUTSIDE RECORDS SUMMARY | 2024-05-09 15:22 | XMS_ITS | Encounter Summary ---
Author Organization [facility] Address [facility] [place] [address] Care Team Providers Care Auto Hiker Name Role Phone Magdalena Acosta MD Primary Care Provider [phone] Encounter Details Date Type Department Care Team [...] [facility] Hemat[facility] Oncology [address] [place] [address] 05/12/2024 10:00 AM EDT Office Visit Hematology [place] [address] Markel Borjas MD [facility] [address] HEMATOLOGY [place] [address] 03/01/2025 4:15 PM EDT Office Visit Dermatology at [place] [address] [facility] [place] [phone] Marek Bonilla MD [address] [facility] [place] [address] documented as of this encounter Visit Diagnoses Not on filedocumented in this encounter Care Teams Auto Hiker Relationship Specialty Start Date End Date Magdalena Acosta MD [address] [place] [address] PCP - General Family Medicine 02/05/23 documented as of this encounter
--- OUTSIDE RECORDS SUMMARY | 2024-05-09 15:22 | XMS_ITS | Encounter Summary ---
Author Organization [facility] [place] [address] Care Team Providers Care Business Planner Name Role Phone Magdalena Acosta MD Primary Care Provider [phone] Encounter Details Date Type Department Care Team (Late st Contact Info) Description 02/17/2023 2:00 PM EDT Office [place] [phone] Alirio Esparza MD Aortic valve stenosis, etiology [...] [facility] [place] Oncology [address] [place] [address] 05/12/2024 10:00 AM EDT Office Visit [place] [address] Markel Borjas MD [facility] [address] [place] [address] 03/01/2025 4:15 PM EDT Office Visit Dermatology at [place] [address] [place] [address] Marek Bonilla MD [address] [facility], [place] [address] documented as of this encounter Visit Diagnoses Diagnosis Aortic valve stenosis, etiology of cardiac valve disease unspecified Chronic idiopathic neutropenia Other neutropenia documented in this encounter Care Teams Business Planner Relationship Specialty Start Date End Date Magdalena Acosta MD [address] [place] [address] PCP - General Family Medicine 02/05/23 documented as of this encounter
--- OUTSIDE RECORDS SUMMARY | 2024-05-09 15:22 | XMS_ITS | Encounter Summary ---
Author Organization [facility] [place] [address] Care Team Providers Care Hematology Technologist Name Role Phone Magdalena Acosta MD Primary Care Provider [phone] Reason for Referral * Consultation (Routine) - Closed Specialty Diagnoses / Procedures Referred By Contac t Referred To Contact Rheumatology Diagnoses Weakness Kyra Haas MD [facility] [address] [place] [address] [facility] [address] [place] [phone] Referral ID Status Reason Start Date Expiration Date V isits Requested Visits Authorized [id number] Closed Consult, Test & Treat PCP Updated and/or Approved 02/25/2023 02/25/2024 6 6 Encounter Details Date Type Department Care Team (Late st Contact Info) Description 02/25/2023 Transcribe Orders eDH Incoming Referrals [phone] Magdalena Acosta MD [address] [place] [address] Weakness Social History Tobacco Use [...] [facility] H[facility] Oncology [address] [place] [address] 05/12/2024 10:00 AM EDT Office Visit [place]ematology [place] [address] Markel Borjas MD [facility] DR [place] [address] 03/01/2025 4:15 PM EDT Office Visit Dermatology at [place] [address] [place] [address] Marek Bonilla MD [address] [facility] [address], [place] [address] Scheduled Referrals Name Type Priority Associated Diagnoses Order Schedule Referral to Rheumatology Outpatient Referral Routine Weakness Ordered: 02/25/2023 documented as of this encounter Visit Diagnoses Diagnosis Weakness Other malaise and fatigue Chronic idiopathic neutropenia Other neutropenia documented in this encounter Care Teams Hematology Technologist Relationship Specialty Start Date End Date Magdalena Acosta MD [address] [place] [address] PCP - General Family Medicine 02/05/23 documented as of this encounter
--- OUTSIDE RECORDS SUMMARY | 2024-05-09 15:22 | XMS_ITS | Encounter Summary ---
Author Organization [facility] Address [facility] [place] [address] Care Team Providers Care Back Tender Fourdrinier Name Role Phone Magdalena Acosta MD Primary Care Provider [phone] Encounter Details Date Type Department Care Team (Late st Contact Info) Description 04/27/2023 3:00 PM EDT Office [place] [address] Magdalena Peralta MD [facility] [place] [address] Mixed connective tissue disease Social History Tobacco [...] 1:5120 speckled; VIC negative; Myositis panel with CAMPAIGN MANAGEMENT SENIOR MANAGER ab 149.1 (positive); Anti U1RNP IgG [...] [facility] [place] [address] [place] [address] 05/12/2024 10:00 AM EDT Office Visit Hematology [place] [address] Markel Borjas MD [facility] [address] HEMATOLOGY [place] [address] 03/01/2025 4:15 PM EDT Office Visit Dermatology at [place] [address] [place] [phone] Marek Bonilla MD [address] [facility] [address], [address] [place] [address] documented as of this encounter Visit Diagnoses Diagnosis Mixed connective tissue disease Other specified diffuse disease of connective tissue Chronic idiopathic neutropenia Other neutropenia documented in this encounter Care Teams Back Tender Fourdrinier Relationship Specialty Start Date End Date Magdalena Acosta MD [address] [place] [address] PCP - General Family Medicine 02/05/23 documented as of this encounter
--- OUTSIDE RECORDS SUMMARY | 2024-05-09 15:23 | XMS_ITS | Encounter Summary ---
Author Organization [facility] Address [facility] Erika lópez[place]yl[place] [address] Care Team Providers Care Feeder Associate Name Role Phone Deborah Quiroga ANURAG Primary Care Provider [phone] Encounter Details Date Type Department Care Team (Late st Contact Info) Description 11/11/2020 Refill Dermatology at [address] [address] Taylor Malone, COVERAGE ANALYST Social History Tobacco Use Types Packs/Day [...] [facility] [place] [address] [place] [address] 05/12/2024 10:00 AM EDT Office Visit Hematology [place] [address] Markel Borjas MD [facility] HEMATOLOGY [place] [address] 03/01/2025 4:15 PM EDT Office Visit Dermatology at [address] [address] Marek Bonilla MD [address] [facility] [address], [place] [address] documented as of this encounter Visit Diagnoses Not on filedocumented in this encounter Care Teams Feeder Associate Relationship Specialty Start Date End Date Deborah Quiroga APRN PCP - General Family Medicine 03/24/16 02/04/23 documented as of this encounter
--- OUTSIDE RECORDS SUMMARY | 2024-05-09 15:23 | XMS_ITS | Encounter Summary ---
Author Organization [facility] [place] [address] Care Team Providers Care Warehouse Administrative Assistant Name Role Phone Deborah Quiroga APRN Primary Care Provider [phone] Encounter Details Date Type Department Care Team (Late st Contact Info) Description 06/05/2021 Interpretation Only [address] [address] Deborah Quiroga APRN [address] [phone] Social History Tobacco Use Types Packs/Day Years [...] [facility] Hemat[facility] Oncology [address] [place] [address] 05/12/2024 10:00 AM EDT Office Visit [place] [address] Markel Borjas MD [facility] [address] [place] [address] 03/01/2025 4:15 PM EDT Office Visit Dermatology at [place] [address] [facility] [address] [place] [address] Marek Bonilla MD [address] [facility] [address], [place] [address] documented as of this encounter Procedures Procedure Name Priority Date/Time Associated Diagnosis Comments DXA CENTRAL SPINE, HIP, AND/OR WHOLE BODY (GENERIC) Routine 06/05/2021 11:58 AM EDT documented in this encounter Results * DXA Central Spine, Hip, and/or Whole Body (Generic) (06/05/2021 11:58 AM EDT) PT CLASS O RAD ADMITDTTM RAD PT RAD INFO [id number]^E VERETT^DEBORAH ^E RAD EXAM DESC XDXAC^DEXA SCAN [...] who have questions please contact the health lead caregiver that requested your imaging first. ? Electronically signed by: Rocael Villatoro MD, [facility] ([phone]), at 06/05/2021 12:00 PM Narrative 06/05/2021 12:00 [...] patients who have questions please contactthe health lead caregiver that requested your imaging first. Electronically signed by: Rocael Villatoro MD, [facility]([phone]), at 06/05/2021 12:00 PM Deborah LLAMAS DEXA ORDERABLES documented in this encounter Visit Diagnoses Not on filedocumented in this encounter Care Teams Warehouse Administrative Assistant Relationship Specialty Start Date End Date Deborah Quiroga APRN PCP - General Family Medicine 03/24/16 02/04/23 documented as of this encounter
--- OUTSIDE RECORDS SUMMARY | 2024-05-09 15:23 | XMS_ITS | Encounter Summary ---
Author Organization [facility]ly [facility] Address [facility] [place] [address] Care Team Providers Care Sign Out Clerk Name Role Phone Junaid Deborah Shields APRN Primary Care Provider [phone] Reason for Visit * Reason Comments Schedule Office Case Pain right leg Encounter Details Date Type Department Care Team (Late st Contact Info) Description 12/11/2016 9:00 AM EDT Office Visit Hematology [place] [address] Markel Borjas MD [facility] DR [place] [address] Neutropenia, unspecified type Social History Tobacco Use [...] AM EDT Hematology Outpatient Clinic [facility] Hematology Outpatient Consult Note CC: 60 [...] TOUCH PREP, CLOT SECTION, CORE ??BIOPSY); [OSR# [id number], COLLECTED 06/23/2016, 19 SLIDES]: ?1. 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 Extremities: No edema. Labs: Hgb= 13 Ctsj=244 ANC= 0.5 Imaging As above - reviewed [...] [facility] Hematology Oncology [address] [place] [address] 05/12/2024 10:00 AM EDT Office Visit Hematology [place] [address] Markel Borjas MD [facility] DR [place] [address] 03/01/2025 4:15 PM EDT Office Visit Dermatology at [place] [address] [place] [address] Marek Bonilla MD [address] [facility] [place] [address] documented as of this encounter Results * [...] encounter Visit Diagnoses Diagnosis Neutropenia, unspecified type Chronic idiopathic neutropenia Other neutropenia documented in this encounter Care Teams Sign Out Clerk Relationship Specialty Start Date End Date Deborah Quiroga, QUALITY PROCESS LEAD PCP - General Family Medicine 03/24/16 02/04/23 documented as of this encounter
--- OUTSIDE RECORDS SUMMARY | 2024-05-09 15:23 | XMS_ITS | Encounter Summary ---
[place] [address] Care Team Providers Care Nursing Resident Name Role Phone Ashley Quirogan Cornelius ANURAG Primary Care Provider [phone] Reason for Visit * Reason Comments Skin Check Encounter Details Date Type Department Care Team (Late st Contact Info) Description 11/11/2020 10:45 AM EDT Office Visit Dermatology at [address] [place] [address] Marek Bonilla MD [address] [facility], QU[address] A DERMATOLOGY [place], [place] [phone] Rosacea; Acrochordon Social History Tobacco Use Types [...] Discussed the possibility of getting this through [facility] or from the [facility] pharmacy if necessary. She has not yet [...] [facility] Oncology [address] [place] [address] 05/12/2024 10:00 AM EDT Office Visit Hematology [place] [address] Markel Borjas MD [facility] DR HEMATOLOGY [place] [address] 03/01/2025 4:15 PM EDT Office Visit Dermatology at [place] [address] [facility] [place] [address] Marek Bonilla MD [address] [facility] [address], [place] [address] documented as of this encounter Visit Diagnoses Diagnosis Rosacea Acrochordon Unspecified hypertrophic and atrophic condition of skin Chronic idiopathic neutropenia Other neutropenia documented in this encounter Care Teams Nursing Resident Relationship Specialty Start Date End Date Deborah Quiroga APRN PCP - General Family Medicine 03/24/16 02/04/23 documented as of this encounter
--- OUTSIDE RECORDS SUMMARY | 2024-05-09 15:23 | XMS_ITS | Encounter Summary ---
Author Organization Former[facility] Address [facility] [place] [address] Care Team Providers Care Slide Fastener Repairer Name Role Phone Deborah Quiroga APRN Primary Care Provider [phone] Reason for Visit * Reason Comments Follow-up Encounter Details Date Type Department Care Team (Late st Contact Info) Description 07/03/2022 1:30 PM EST Office Visit Hematology [place] [address] Markel Borjas MD [facility] [address] [place] [address] Consuelo Sommer APRN [facility] [address] [place] [address] Chronic idiopathic neutropenia; Dysuria Social History Tobacco [...] 07/03/2022 1:30 PM EST Hematology Outpatient Clinic [facility] [...] TOUCH PREP, CLOT SECTION, CORE ??BIOPSY); [OSR# [id number], COLLECTED 06/23/2016, 19 SLIDES]: ?1. 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 Extremities: No edema. Labs: Hgb= 11.7 Wmfe=575 ANC= 2.5 Imaging As above - reviewed [...] 9:00 AM EDT Laboratory Appointment Lab at [facility] Hematology Oncology [address] [place] [address] 05/12/2024 10:00 AM EDT Office Visit [place]ematology [place] [address] Markel Borjas MD [facility] [address] [place] [address] 03/01/2025 4:15 PM EDT Office Visit Dermatology at [place] [address] [facility] [place] [address] Marek Bonilla MD [address] [facility], [address] [place] [address] documented as of this encounter Procedures Procedure [...] tract infection, submit a new specimen. (A) [facility] Clean Catch Urine 07/03/2022 2:00 PM EST 07/03/2022 5:55 PM EST Narrative Resulting Agency Comment Spec In Lab Markel Borjas MD MICROBIOLOGY - GEN ERAL ORDERABLES Performing Organization Address City/[facility]/ZIP Co de Phone Number [facility] [place] [address] * (ABNORMAL) Urinalysis Microscopic Exam (07/03/2022 2:00 PM EST) RBC, Urine 2 0 - 4 /HPF [facility] WBC, Urine 14(H) 0 - 5 /HPF [facility] Bacteria, Urine Occasional (A) None /HPF [facility] Squamous Epithelial Cells Raw Data, Urine 12(H) <=4 /HPF [facility] Hyaline Casts, Urine 2 0 - 2 /LPF [facility] Clean Catch Urine 07/03/2022 2:00 PM EST 07/03/2022 2:29 PM EST Narrative Resulting Agency Comment Spec In Lab Markel Borjas MD URINE ORDERABLES Performing Organization Address City/[facility]/ZIP Co de Phone Number [facility] [place] [address] * (ABNORMAL) Urinalysis with reflex Culture (07/03/2022 2:00 PM EST) Glucose, Urine Dipstick Negative Negative mg/dL [facility] Protein, Urine Dipstick 30(A) Negative mg/dL [facility] Bilirubin, Urine Dipstick Negative Negative mg/dL [facility] Comment: Clinical correlation required for positive Urine Bilirubin results as false positive may occur with some drugs and drug related products. If a false positive is suspected a serum total bilirubin should be considered if clinically indicated. Urobilinogen, Urine Dipstick Normal Normal mg/dL [facility] pH, Urn (dipstick) 5.5 5.0 - 8.0 [facility] Blood, Urine Dipstick Negative Negative mg/dL [facility] Ketone, Urine Dipstick Trace(A) Negative mg/dL [facility] Nitrite, Urine Dipstick Negative Negative [facility] Leukocytes, Urine Dipstick Small(A) Negative [facility] Appearance, Urine Dipstick Clear Clear [facility] Specific Gregory Urine Automated 1.022 1.005 - 1.030 [facility] Color, Urine Dipstick Yellow Yellow [facility] Reflex to Culture Yes [facility] Clean Catch Urine 07/03/2022 2:00 PM EST 07/03/2022 2:29 PM EST Narrative Resulting Agency Comment Spec In Lab Markel Borjas MD URINE ORDERABLES [facility] [place] [address] * (ABNORMAL) Comprehensive metabolic panel (non-fasting) (07/03/2022 12:40 PM EST) Glucose 92 65 - 199 mg/dL [facility] Comment:Diabetes: >=200 mg/d L plus symptoms Blood Urea Nitrogen 22(H) 8 - 18 mg/dL [facility] [...] mmol/L [facility] Carbon Dioxide 23 22 - 31 mmol/L [facility] Anion Gap 11 5 - 15 mmol/L [facility] Calcium 10.1 8.5 - 10.5 mg/dL [facility] Protein, Total 7.6 6.1 - 8.0 g/dL [facility] Albumin 4.1 3.2 - 5.2 g/dL [facility] Aspartate Aminotransferase 25 0 - 30 unit/L [facility] Alanine Aminotransferase 14 0 - 30 unit/L [facility] Alkaline Phosphatase 80 35 - 105 unit/L [facility] Bilirubin, Total 0.3 0.2 - 1.3 mg/dL [facility] Est Glomerular Filtration Rate 81 >=60 mL/min/1. 73 m?? [facility] [...] CHEMISTRY ORDERABL ES [facility] [place] [address] documented in this encounter Visit Diagnoses Diagnosis Chronic idiopathic neutropenia Other neutropenia Dysuria Chronic idiopathic neutropenia Other neutropenia documented in this encounter Care Teams Slide Fastener Repairer Relationship Specialty Start Date End Date Deborah Quiroga, GEODESIST PCP - General Family Medicine 03/24/16 02/04/23 documented as of this encounter
--- OUTSIDE RECORDS SUMMARY | 2024-05-09 15:23 | XMS_ITS | Encounter Summary ---
Author Organization [facility] Address [facility] Erika lópezsylvia [place] [address] Care Team Providers Care Authorization Specialist Name Role Phone Deborah Quiroga ANURAG Primary Care Provider [phone] Encounter Details Date Type Department Care Team (Late st Contact Info) Description 01/13/2021 Refill Dermatology at [address] [address] Taylor Malone, GANG SAW OPERATOR Social History Tobacco Use Types Packs/Day [facility] [place] [place] [address] [place] [address] 05/12/2024 10:00 AM EDT Office Visit Hematology [place] [address] Markel Borjas MD [facility] [place] [address] 03/01/2025 4:15 PM EDT Office Visit Dermatology at [address] [address] Marek Bonilla MD [address] [facility] [address] [facility] [address], [place] [address] documented as of this encounter Visit Diagnoses Not on filedocumented in this encounter Care Teams Authorization Specialist Relationship Specialty Start Date End Date Deborah Quiroga APRN PCP - General Family Medicine 03/24/16 02/04/23 documented as of this encounter
--- OUTSIDE RECORDS SUMMARY | 2024-05-09 15:23 | XMS_ITS | Encounter Summary ---
[place] [address] Care Team Providers Care Microsoft Infrastructure Consultant Name Role Phone Deborah Quiroga APRN Primary Care Provider [phone] Reason for Referral * Consultation (Routine) - Closed Specialty Diagnoses / Procedures Referred By Contac t Referred To Contact Rheumatology Diagnoses Positive FRANCISCO (antinuclear antibody) Arthralgia, unspecified joint Sandy Wu APRN [address] [place] [address] [facility] Rheumatology [address] [place] [address] Referral ID Status Reason Start Date Expiration Date V isits Requested Visits Authorized [id number] Closed Consult, Test & Treat PCP Updated and/or Approved 01/01/2022 01/01/2023 6 6 Encounter Details Date Type Department Care Team (Latest Contact Info) Description 01/01/2022 Transcribe Orders eDH Incoming Referrals [phone] Sandy Wu APRN [address] [place], [place] [id number] Positive FRANCISCO (antinuclear antibody); Arthralgia, unspecified joint [...] [facility] Hematology Oncology [address] [place] [address] 05/12/2024 10:00 AM EDT Office Visit Hematology [place] [address] Markel Borjas MD [facility] [address] [place] [address] 03/01/2025 4:15 PM EDT Office Visit Dermatology at [place] [address] [facility] [place] [address] Marek Bonilla MD [address] [facility] [address], [place] [address] Scheduled Referrals Name Type Priority Associated Diagnoses Orde r Schedule Referral to Rheumatology Outpatient Referral Routine Positive FRANCISCO (antinuclear antibody) Arthralgia, unspecified joint Ordered: 01/01/2022 documented as of this encounter Visit Diagnoses Diagnosis Positive FRANCISCO (antinuclear antibody) Other and unspecified nonspecific immunological findings Arthralgia, unspecified joint Chronic idiopathic neutropenia Other neutropenia documented in this encounter Care Teams Microsoft Infrastructure Consultant Relationship Specialty Start Date End Date Deborah Quiroga APRN PCP - General Family Medicine 03/24/16 02/04/23 documented as of this encounter
--- OUTSIDE RECORDS SUMMARY | 2024-05-09 15:23 | XMS_ITS | Encounter Summary ---
[place] [address] Care Team Providers Care Faculty Research Assistant Name Role Phone JunaidDeborah hargrove APRN Primary Care Provider [phone] Reason for Visit * Reason Comments Follow-up Encounter Details Date Type Department Care Team (Late st Contact Info) Description 01/10/2021 4:30 PM EDT Office Visit Dermatology at [place] [address] [facility] [place] [address] Marek Bonilla MD [address] [facility], TODD A DERMATOLOGY [place], [place] [address] Rosacea Social History Tobacco Use Types Packs/Day [...] cutaneous and ocular 2. Previously told by silver recovery operator that she had corneal tears from [...] 3 refills. Will call this in her [facility] in [place] 3. Continue metronidazole 0.75% gel applying once [...] [facility] Hematology Oncology [address] [place] [address] 05/12/2024 10:00 AM EDT Office Visit [place] [address] Markel Borjas MD [facility] [address] [place] [address] 03/01/2025 4:15 PM EDT Office Visit Dermatology at [place] [address] [facility] [place] [address] Marek Bon[place] MD [address] [facility] [address], TODD [place] [address] documented as of this encounter Visit Diagnoses Diagnosis Rosacea Chronic idiopathic neutropenia Other neutropenia documented in this encounter Care Teams Faculty Research Assistant Relationship Specialty Start Date End Date Deborah Quiroga APRN PCP - General Family Medicine 03/24/16 02/04/23 documented as of this encounter
--- OUTSIDE RECORDS SUMMARY | 2024-05-09 15:23 | XMS_ITS | Encounter Summary ---
Author Organization [facility] [place] [address] Care Team Providers Care Mfg Assoc Name Role Phone Deborah Quiroga APRN Primary Care Provider [phone] Encounter Details Date Type Department Care Team (Late st Contact Info) Description 11/09/2022 11:30 AM EDT - 11/09/2022 12:30 PM [place] [address] Nitesh Escobedo MD [facility] [place] [address] CARDIAC CATHETERIZATION Social History Tobacco Use Types [...] 02/05/2023 2:30 PM Marek Bonilla MD [facility] New Medications to be Picked Up None For questions regarding this document or issues relating to this hospitalization on the Medical Service, please contact your inpatient physician through the [facility] High Pressure Firer . Issues afterhours and on weekends will be handled by the Hospitalist staff on-call. * Attachments The following attachments cannot be sent through Care Everywhere. * Coronary Angiogram: Post-op (Djiboutian) * Right Heart Catheterization: Pulmonary Artery Catheterization: Post-op (Djiboutian) documented in this encounter Medications at Time [...] 0.5 tablets by mouth daily. 10/03/2016 05/22/2023 meloxicam (Mobic) 15 mg tablet Take 15 mg by mouth daily. 05/22/2023 metoprolol succinate XL (Toprol-XL) 50 mg Tablet Sustained Release 24 hr Take 75 mg by mouth daily. 10/18/2021 02/05/2023 meTOPROLOL tartrate (LOPRESSOR) 25 mg Tablet Take [...] MD - 11/09/2022 11:20 AM EDT . [facility] Interventional Cardiology Adult Pre-Procedure H&P Update: Cardiac Catheterization Purnima Thacker [id number] 1955 Chief Complaint: BONILLA HPI: Purnima Thacker [...] Marrero MD Interventional Cardiology 11/09/22 11:43 AM [facility] Pager: [phone] documented in this encounter Plan of Treatment Upcoming Encounters Date Type Department Care Team (Late st Contact Info) Description 05/12/2024 9:00 AM EDT Laboratory Appointment Lab at [facility] Hematology Oncology [address] [place] [address] 05/12/2024 10:00 AM EDT Office Visit [place] [address] Markel Borjas MD [facility] DR HEMATOLOGY [place] [address] 03/01/2025 4:15 PM EDT Office Visit Dermatology at [place] [address] [place] [address] Marek Bonilla MD [address], [place] [address] documented as of this encounter Procedures Procedure Name Priority Date/Time Associated Diagnosis Comments CARDIAC CATHETERIZATION Routine 11/10/19 1:05 PM EDT Aortic valve stenosis, etiology of cardiac valve disease unspecified Cath Plmt Left Heart Cath & Arts W/Inj & Angio Img S&I ([id number]) 11/09/2022 11:51 AM EDT Aortic valve stenosis, etiology of cardiac valve disease unspecified EKG 12-LEAD Routine 11/09/2022 11:17 AM EDT Aortic valve stenosis, etiology of cardiac valve disease unspecified documented in this encounter Results * CARDIAC CATHETERIZATION (11/09/2022 1:05 PM EDT) Anatomical Region Laterality Modality Other Narrative 11/09/2022 2:01 PM EDT ?[facility] ? Cardiac Catheterization/Intervention Report ? Patient Name: Kirstie, Purnima M. ? Procedure Date: 11/09/2022 ? A #: [id number] ? Primary Physician: Nitesh Escobedo ? Case #: [id number] ? File Name: [id number] ? Catheterization Order Number: [id number] ? [facility] ? Final Report [place], [place] ? Patient Name: ? Purnima M. Kirstie ? ID#: ?[id number] ? : ?1955 ? Procedure Date: ? November 09, 2022 ? Case #: ? [id number] ? Room: ? 1 ? Case Physician: ? Nitesh Escobedo M.D. ? Start: ?12:17 ?Fellow: ? Blaze Mrarero M.D. ?Admission: ??11/09/2022 ? Procedures: ?* Coronary [...] as ASA Class III. The [facility] clinical frailty scale ?is 4: Vulnerable. ? [...] (Bezet) 457 ms MUSE SYSTEM Calculated P Datto 44 degrees MUSE SYSTEM Calculated R Datto 33 degrees MUSE SYSTEM Calculated T Datto 30 degrees MUSE SYSTEM INTERPRETATION Sinus rhythm Occasional Premature ventricular complexes Otherwise normal ECG When compared with ECG of 21-SEP-2016 12:26, Premature ventricular complexes are now Present [place] interval has decreased Nonspecific T wave abnormality has replaced inverted T waves in Inferior leads I personally reviewed the tracing and edited the fellows interpretation Confirmed by fellow MD Anitha, Carissa ([id number]) on 11/09/2022 6:17:28 PM Confirmed by Elsa [...] neutropenia Other neutropenia documented in this encounter Administered Medications Inactive [...] MD) documented in this encounter Care Teams Mfg Assoc Relationship Specialty Start Date End Date Deborah Quiroga, CARTON MAKING MACHINIST PCP - General Family Medicine 03/24/16 02/04/23 documented as of this encounter
--- OUTSIDE RECORDS SUMMARY | 2024-05-09 15:23 | XMS_ITS | Encounter Summary ---
Author Organization [facility] [address] Care Team Providers Care Engraver Rubber Name Role Phone Deborah Quiroga APRN Primary Care Provider [phone] Encounter Details Date Type Department Care Team (Latest Contact Info) Description 07/03/2022 12:28 PM EST - 07/03/2022 1:35 PM EST Hospital Encounter Hematology [place] [address] Chronic idiopathic neutropenia Discharge Disposition: Home Social [...] 0.5 tablets by mouth daily. 10/03/2016 05/22/2023 metoprolol succinate XL (Toprol-XL) 50 mg [...] [facility] [place] [place] [place] [address] [place] [address] 05/12/2024 10:00 AM EDT Office Visit Hematology [place] [address] Markel Borjas MD [facility] [address] HEMATOLOGY [place] [address] 03/01/2025 4:15 PM EDT Office Visit Dermatology at [place] [address] [place] [address] Marek Bonilla MD [address], [place] [address] documented as of this encounter Procedures Procedure [...] 12:40 PM EST) Neutrophil % 72.9 % [facility] Neutrophil Absolute 2.61 1.70 - 6.10 x10(3)/mc L [facility] Lymph % 18.4 % [facility] Lymphocytes Abs 0.7(L) 0.9 - 3.2 x10(3)/mc L [facility] Monocyte % 8.4 % [facility] Monocyte Abs 0.3 0.3 - 0.9 x10(3)/mc L [facility] Eos % 0.0 % [facility] Eosinophils Abs 0.0 0.0 - 0.4 x10(3)/mc L [facility] Basophil % 0.3 % [facility] Baso Absolute 0.0 0.0 - 0.1 x10(3)/mc L [facility] Immature Gran % 0.00 % [facility] Comment: Immature granulocytes(IG's)percentage and absolute count will include metamyelocytes, myelocytes, and promyelocytes. Blood smears from CBCs yielding IG's will be scanned manually for concordance. If this scan disagrees with the automated IG or if promyelocytes are noted, a manual differential will be performed. Immature Gran Absolute 0.00 0.00 - 0.04 x10(3)/mc L [facility] Blood 07/03/2022 12:4 0 PM EST 07/03/2022 1:03 PM EST Narrative Resulting Agency Comment Spec In Lab Markel Borjas MD HEMATOLOGY ORDERAB LES [facility] [place] [address] * (ABNORMAL) Hemogram (07/03/2022 12:40 PM EST) White Blood Cell 3.6(L) 4.0 - 9.5 x10(3)/ L [facility] Red Blood Cell 3.61(L) 4.00 - 5.21 x10(6)/mc L [facility] Hemoglobin 11.7 11.7 - 15.5 g/dL [facility] Hematocrit 34.5(L) 35.7 - 45.8 % [facility] Mean Cell Volume 95.6(H) 82.6 - 94.4 fL [facility] Mean Cell Hemoglobin 32.4(H) 27.1 - 32.0 pg [facility] Mean Cell Hemoglobin Concentration 33.9 31.7 - 35.0 g/dL [facility] Platelet 171 145 - 357 x10(3)/mc L [facility] RDW Standard Deviation 40.5 37.0 - 46.0 fL [facility] RDW coefficient of variation 11.5 11.5 - 14.1 % [facility] Mean Platelet Volume 9.2 7.6 - 12.9 fL [facility] NRBC% auto 0.0 % [facility] NRBC Absolute 0.000 0.000 - 0.000 x10(3)/ L [facility] Blood 07/03/2022 12:4 0 PM EST 07/03/2022 1:03 PM EST Narrative Resulting Agency Comment Spec In Lab Markel Borjas MD HEMATOLOGY ORDERAB LES [facility] [place] [address] * (ABNORMAL) Comprehensive metabolic panel (non-fasting) (07/03/2022 [...] CHEMISTRY ORDERABL ES [facility] [place] [address] documented in this encounter Visit Diagnoses Diagnosis Chronic idiopathic neutropenia Other neutropenia Chronic idiopathic neutropenia Other neutropenia documented in this encounter Care Teams Engraver Rubber Relationship Specialty Start Date End Date Deborah Quiroga APRN PCP - General Family Medicine 03/24/16 02/04/23 documented as of this encounter
--- OUTSIDE RECORDS SUMMARY | 2024-05-09 15:23 | XMS_ITS | Encounter Summary ---
Author Organization [facility] [place] [address] Care Team Providers Care Moisture Conditioner Operator Name Role Phone Deborah Quiroga APRN Primary Care Provider [phone] Encounter Details Date Type Department Care Team (Late st Contact Info) Description 06/05/2021 Interpretation Only [address] [address] Deborah Quiroga APRN [address] [phone] Social History Tobacco Use Types Packs/Day Years [...] [facility] Hematology Oncology [address] [place] [address] 05/12/2024 10:00 AM EDT Office Visit [place]ematology [place] [address] Markel Borjas MD [facility] [address] HEMATOLOGY [place] [address] 03/01/2025 4:15 PM EDT Office Visit Dermatology at [place] [address] [place] [phone] Marek Bonilla MD [address], [place] [address] documented as of this encounter Procedures Procedure Name Priority Date/Time Associated Diagnosis Comments MAMMO SCREENING CAD BILATERAL Routine 06/05/2021 11:42 AM EDT documented in this encounter Results * Mammo Screening Cad Bilateral (06/05/2021 11:42 AM EDT) PT CLASS O DH RAD ADMITDTTM DH RAD PT DH RAD INFO [id number]^EV ERETT^DEBORAH^E DH RAD EXAM DESC MADDSC^SCREEN MAMMO [...] who have questions please contact the health floor care technician that requested your imaging first. [...] patients who have questions please contactthe health floor care technician that requested your imaging first. Deborah Quiroga APRN IMG MAMMO ORDERABLE S documented in this encounter Visit Diagnoses Not on filedocumented in this encounter Care Teams Moisture Conditioner Operator Relationship Specialty Start Date End Date Deborah Quiroga APRN PCP - General Family Medicine 03/24/16 02/04/23 documented as of this encounter
--- OUTSIDE RECORDS SUMMARY | 2024-05-09 15:23 | XMS_ITS | Encounter Summary ---
Author Organization [facility] [place] [address] Care Team Providers Care Health Safety Coordinator Name Role Phone Deborah Quiroga APRN Primary Care Provider [phone] Encounter Details Date Type Department Care Team (Late st Contact Info) Description 06/05/2021 Interpretation Only [address] [address] Deborah Quiroga APRN [address] [phone] Social History Tobacco Use Types Packs/Day Years [...] [facility] Hematology Oncology [address] [place] [address] 05/12/2024 10:00 AM EDT Office Visit [place] [address] Markel Borjas MD [facility] [address] [place] [address] 03/01/2025 4:15 PM EDT Office Visit Dermatology at [place] [address] [place] [address] Marek Bonilla MD [address], [place] [address] documented as of this encounter Procedures Procedure Name Priority Date/Time Associated Diagnosis Comments MAMMO SCREENING CAD AND CATRACHITO BILATERAL Routine 06/05/2021 11:42 AM EDT documented in this encounter Results * Mammo Screening Cad and Catrachito Bilateral (06/05/2021 11:42 AM EDT) PT CLASS O DH RAD ADMITDTTM DH RAD PT DH RAD INFO [id number]^EVERET T^DEBORAH^E DH RAD EXAM DESC MADDSCTO^BREAST SCREEN [...] questions please contact the health health care law specialist that requested your imaging first. ? Electronically signed by: Rocael Villatoro MD, [facility] ([phone]), at 06/05/2021 1:27 PM Narrative 06/05/2021 1:27 [...] have questions please contactthe health health care law specialist that requested your imaging first. Deborah Quiroga APRN IMG MAMMO ORDERABLE S documented in this encounter Visit Diagnoses Not on filedocumented in this encounter Care Teams Health Safety Coordinator Relationship Specialty Start Date End Date Deborah Quiroga APRN PCP - General Family Medicine 03/24/16 02/04/23 documented as of this encounter
--- OUTSIDE RECORDS SUMMARY | 2024-05-09 15:23 | XMS_ITS | Encounter Summary ---
Author Organization [facility] Address [facility] [place] [address] Care Team Providers Care Spot Man Name Role Phone Deborah Quiroga APRN Primary Care Provider [phone] Encounter Details Date Type Department Care Team (Late st Contact Info) Description 03/01/2020 11:30 AM EDT Office Visit [place]ology [place] [phone] Patrick Borjas MD [facility] [address] [place] [address] Neutropenia, unspecified type Social History Tobacco Use [...] 11:30 AM EDT Hematology Outpatient Clinic [facility] Hematology Outpatient Consult Note CC: [...] TOUCH PREP, CLOT SECTION, CORE ??BIOPSY); [OSR# [id number], COLLECTED 06/23/2016, 19 SLIDES]: ?1. 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 Extremities: No edema. Labs: Hgb= 12.4 Pojj=521 ANC= 2.5 Imaging As above - reviewed [...] at [facility] Hematology Oncology [address] [place] [address] 05/12/2024 10:00 AM EDT Office Visit [place]ematology [place] [address] Patrick Borjas MD [facility] [address] [place] [address] 03/01/2025 4:15 PM EDT Office Visit Dermatology at [place] [address] [place] [phone] Marek Bonilla MD [address] [place] [address] documented as of this encounter Visit Diagnoses Diagnosis Neutropenia, unspecified type Chronic idiopathic neutropenia Other neutropenia documented in this encounter Care Teams Spot Man Relationship Specialty Start Date End Date Deborah Quiroga APRN PCP - General Family Medicine 03/24/16 02/04/23 documented as of this encounter
--- OUTSIDE RECORDS SUMMARY | 2024-05-09 15:23 | XMS_ITS | Encounter Summary ---
Author Organization [facility] [place] [address] Care Team Providers Care Mineral Surveying Technician Name Role Phone Deborah Quiroga APRN Primary Care Provider [phone] Encounter Details Date Type Department Care Team (Late st Contact Info) Description 06/08/2022 Ancillary Procedure Radiology Library at [facility] [place] [address] Deborah Quiroga APRN [address] [place] [phone] Social History Tobacco Use Types Packs/Day [...] [facility] Hematology Oncology [address] [place] [address] 05/12/2024 10:00 AM EDT Office Visit [place] [phone] Markel Borjas MD [facility] HEMATOLOGY [place] [address] 03/01/2025 4:15 PM EDT Office Visit Dermatology at [place] [address] [place] [phone] Marek Bonilla MD [address], [place] [address] documented as of this encounter Procedures Procedure Name Priority Date/Time Associated Diagnosis Comments FILM LIBRARY STORAGE ONLY DX SPINE Routine 06/08/2022 12:00 AM EST documented in this encounter Results * Film Library- Storage Only DX Spine (06/08/2022 12:00 AM EST) Narrative [facility] - 06/18/2022 10:57 AM EST This exam is auto-finalizing. It's purpose is for storage only. Deborah Quiroga APRN IMG FILM LIBRARY OR DERABLES Performing Organization Address City/State/[facility] de Phone Number [place], [place] documented in this encounter Visit Diagnoses Not on filedocumented in this encounter Care Teams Mineral Surveying Technician Relationship Specialty Start Date End Date Deborah Quiroga APRN PCP - General Family Medicine 03/24/16 02/04/23 documented as of this encounter
--- OUTSIDE RECORDS SUMMARY | 2024-05-09 15:23 | XMS_ITS | Encounter Summary ---
Author Organization [facility] Address [facility] [place] [address] Care Team Providers Care Wet Roaster Name Role Phone Ashley Quirogazac Shields APRN Primary Care Provider [phone] Encounter Details Date Type Department Care Team [...] [facility] Hematology Oncology [address] [place] [address] 05/12/2024 10:00 AM EDT Office Visit [place]ematology [place] [address] Marekl Borjas MD [facility] [address] [place] [address] 03/01/2025 4:15 PM EDT Office Visit Dermatology at [place] [address] [facility] [place] [phone] Marek Bonilla MD [address] [facility] [place] [address] documented as of this encounter Visit Diagnoses Not on filedocumented in this encounter Care Teams Wet Roaster Relationship Specialty Start Date End Date Deborah Quiroga APRN PCP - General Family Medicine 03/24/16 02/04/23 documented as of this encounter
--- OUTSIDE RECORDS SUMMARY | 2024-05-09 15:23 | XMS_ITS | Encounter Summary ---
Author Organization [facility] [place] [address] Care Team Providers Care Automatic Grinding Machine Operator Name Role Phone Deborah Quiroga APRN Primary Care Provider [phone] Encounter Details Date Type Department Care Team (Late st Contact Info) Description 06/17/2022 Ancillary Procedure Radiology Library [place] [facility] [address] Deborah Quiroga APRN [address] [place] [phone] Social History Tobacco Use Types Packs/Day [...] [facility] Hematology Oncology [address] [place] [address] 05/12/2024 10:00 AM EDT Office Visit [place] [phone] Markel Borjas MD [facility] HEMATOLOGY [place] [address] 03/01/2025 4:15 PM EDT Office Visit Dermatology at [place] [address] [place] [phone] Marek Bonilla MD [address] [place] [address] documented as of this encounter Procedures Procedure [...] Address City/State/[facility] de Phone Number [place], [place] documented in this encounter Visit Diagnoses Not on filedocumented in this encounter Care Teams Automatic Grinding Machine Operator Relationship Specialty Start Date End Date Deborah Quiroga APRN PCP - General Family Medicine 03/24/16 02/04/23 documented as of this encounter
--- OUTSIDE RECORDS SUMMARY | 2024-05-09 15:23 | XMS_ITS | Encounter Summary ---
Author Organization [facility] Address [facility] [place] [address] Care Team Providers Care Housekeeper And Laundry Assistant Name Role Phone Junaid Deborah Shields APRN Primary Care Provider [phone] Encounter Details Date Type Department Care Team (Latest Contact Info) Description 06/22/2022 10:00 AM EST Office [place] [phone] Raymond Loredo MD [facility] [place] [address] Raynaud's phenomenon without gangrene; Positive FRANCISCO (antinuclear [...] can be done locally or here at [facility] that the [...] for surgery by Dr. Rogers here at [facility]. In addition [...] over radiocarpal or ulnocarpal joints. 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 SJC/TJC 0/0. Knees: Decreased [...] [place] [facility] [place] [address] [place] [address] 05/12/2024 10:00 AM EDT Office Visit Hematology [place] [address] Markel Borjas MD [facility] [address] [place] [address] 03/01/2025 4:15 PM EDT Office Visit Dermatology at [place] [address] [place] [address] Maerk Bonilla MD [address] [facility] [place] [address] documented as of this encounter Visit Diagnoses Diagnosis Raynaud's phenomenon without gangrene Positive FRANCISCO (antinuclear antibody) Other and unspecified nonspecific immunological findings Primary osteoarthritis involving multiple joints Cervical disc disorder at C6-C7 level with radiculopathy Chronic idiopathic neutropenia Other neutropenia documented in this encounter Care Teams Housekeeper And Laundry Assistant Relationship Specialty Start Date End Date Deborah Quiroga APRN PCP - General Family Medicine 03/24/16 02/04/23 documented as of this encounter
--- OUTSIDE RECORDS SUMMARY | 2024-05-09 15:23 | XMS_ITS | Encounter Summary ---
[facility] Organization [facility] [place] [address] Care Team Providers Care Electrical System Specialist Name Role Phone Junaid Deborah Shields APRN Primary Care Provider [phone] Encounter Details Date Type Department Care Team (Latest Contact Info) Description 11/09/2022 10:37 AM EDT - 11/09/2022 4:53 PM EDT Hospital Encounter [place] [address] Nitesh Escobedo MD [facility] [place] [address] Aortic valve stenosis, etiology of cardiac valve [...] Center 02/05/2023 2:30 PM Marek Bonilla MD [facility] New Medications to be Picked Up None For questions regarding this document or issues relating to this hospitalization on the Medical Service, please contact your inpatient physician through the [facility] Windmill Technician . Issues afterhours and on weekends will be handled by the Hospitalist staff on-call. * Attachments The following attachments cannot be sent through Care Everywhere. * Coronary Angiogram: Post-op (Afghan) * Right Heart Catheterization: Pulmonary Artery Catheterization: Post-op (Afghan) documented in this encounter Medications at Time [...] MD - 11/09/2022 11:20 AM EDT . [facility] Interventional Cardiology Adult Pre-Procedure H&P Update: Cardiac Catheterization Purnima Thacker [id number] Chief Complaint: BONILLA HPI: Purnima Thacker [...] Marrero MD Interventional Cardiology 11/09/22 11:43 AM [facility] Pager: [phone] documented in this encounter Plan of Treatment Upcoming Encounters Date Type Department Care Team (Late st Contact Info) Description 05/12/2024 9:00 AM EDT Laboratory Appointment Lab at [facility] Hematology Oncology [address] [place], [place] [id number] 05/12/2024 10:00 AM EDT Office Visit Hematology [place] [address] Markel Borjas MD [facility] [address] [place] [address] 03/01/2025 4:15 PM EDT Office Visit Dermatology at [place] [address] [place] [address] Marek Bonilla MD [address] [place] [address] documented as of this encounter Procedures Procedure Name Priority Date/Time Associated Diagnosis Comments CARDIAC CATHETERIZATION Routine 11/10/19 23 1:05 PM EDT Aortic valve stenosis, etiology of cardiac valve disease unspecified Cath Plmt Left Heart Cath & Arts W/Inj & Angio Img S&I ([id number]) 11/09/2022 11:51 AM EDT Aortic valve stenosis, etiology of cardiac valve disease unspecified EKG 12-LEAD Routine 11/09/2022 11:17 AM EDT Aortic valve stenosis, etiology of cardiac valve disease unspecified documented in this encounter Results * CARDIAC CATHETERIZATION (11/09/2022 1:05 PM EDT) Anatomical Region Laterality Modality Other Narrative 11/09/2022 2:01 PM EDT ?[facility] ? Cardiac Catheterization/Intervention Report ? Patient Name: Kirstie, Purnima M. ? Procedure Date: 11/09/2022 ? A #: [id number] ? Primary Physician: Nitesh Escobedo ? Case #: [id number] ? File Name: [id number] ? Catheterization Order Number: [id number] ? [facility] ? Final Report [place], [place] ? Patient Name: ? Purnima M. Kirstie ? ID#: ?[id number] ? : ?1955 ? Procedure Date: ? November 09, 2022 ? Case #: ? [id number] ? Room: ? 1 ? Case Physician: [...] (Bezet) 457 ms MUSE SYSTEM Calculated P [place] 44 degrees MUSE SYSTEM Calculated R [place] 33 degrees MUSE SYSTEM Calculated T [place] 30 degrees MUSE SYSTEM INTERPRETATION Sinus rhythm Occasional Premature ventricular complexes Otherwise normal ECG When compared with ECG of 21-SEP-2016 12:26, Premature ventricular complexes are now Present TN interval has decreased Nonspecific T wave abnormality has replaced inverted T waves in Inferior leads I personally reviewed the tracing and edited the fellows interpretation Confirmed by fellow MD Anitha, Carissa ([id number]) on 11/09/2022 6:17:28 PM Confirmed by Elsa [...] MD) documented in this encounter Care Teams Electrical System Specialist Relationship Specialty Start Date End Date Deborah Quiroga, PROGRAM SUPPORT CLERK PCP - General Family Medicine 03/24/16 02/04/23 documented as of this encounter
--- OUTSIDE RECORDS SUMMARY | 2024-05-09 15:23 | XMS_ITS | Encounter Summary ---
[place] [address] Care Team Providers Care Hydraulic Billet Maker Name Role Phone Magdalena Acosta MD Primary Care Provider [phone] Reason for Visit * Reason Comments Annual Exam Encounter Details Date Type Department Care Team (Late st Contact Info) Description 02/05/2023 2:30 PM EDT Office Visit Dermatology at [address] [address] Marek Bonilla MD [address] [facility], [place] [address] Rosacea; Ocular rosacea; Nevus Social History Tobacco [...] cutaneous and ocular 2. Previously told by weed cooking operator that she had corneal tears from [...] [facility] Hematology Oncology [address] [place] [address] 05/12/2024 10:00 AM EDT Office Visit Hematology [place] [address] Markel Borjas MD [facility] [address] [place] [address] 03/01/2025 4:15 PM EDT Office Visit Dermatology at [place] [address] [place] [address] Marek Bonilla MD [address] [facility], [place] [address] documented as of this encounter Visit Diagnoses Diagnosis Rosacea Ocular rosacea Rosacea Nevus Benign neoplasm of skin, site unspecified Chronic idiopathic neutropenia Other neutropenia documented in this encounter Care Teams Hydraulic Billet Maker Relationship Specialty Start Date End Date Magdalena Acosta MD [address] [place] [address] PCP - General Family Medicine 02/05/23 documented as of this encounter
--- OUTSIDE RECORDS SUMMARY | 2024-05-09 15:23 | XMS_ITS | Encounter Summary ---
Author Organization [facility] [place] [address] Care Team Providers Care Belly Roller Name Role Phone Deborah Quiroga APRN Primary Care Provider [phone] Encounter Details Date Type Department Care Team (Latest Contact Info) Description 07/03/2022 1:36 PM EST - 07/03/2022 11:59 PM EST Hospital Encounter Hematology [place] [address] Discharge Disposition: Home Social History Tobacco Use [...] [facility] Hematology Oncology [address] [place] [address] 05/12/2024 10:00 AM EDT Office Visit Hematology [place] [address] Markel Borjas MD [facility] [address] [place] [address] 03/01/2025 4:15 PM EDT Office Visit Dermatology at [facility] [address] [facility] [place] [address] Marek Bonilla MD [address] [address] [address], [place] [address] documented as of this encounter Procedures Procedure Name Priority Date/Time Associated Diagnosis Comments FOLATE, SERUM Routine 07/03/2022 1:59 PM EST VITAMIN B12 Routine 07/03/2022 1:59 PM EST documented in this encounter Results * Folate, serum (07/03/2022 1:59 PM EST) Folate >20.0 4.8 - 24.2 ng/mL [facility] Blood Venous Draw / Unknown 07/03/2022 1:59 PM EST 07/03/2022 2:13 PM EST Narrative Resulting Agency Comment Spec In Lab Markel Borjas MD CHEMISTRY ORDERABL ES Performing Organization Address City/[facility]/ZIP Co de Phone Number [facility] [place] [address] * Vitamin B12 (07/03/2022 1:59 PM EST) Vitamin B12 449 232 - 1,245 pg/mL [facility] Blood Venous Draw / Unknown 07/03/2022 1:59 PM EST 07/03/2022 2:13 PM EST Narrative Resulting Agency Comment Spec In Lab Markel Borjas MD CHEMISTRY ORDERABL ES Performing Organization Address City/[facility]/ZIP Co de Phone Number [facility] [place] [address] documented in this encounter Visit Diagnoses Not on filedocumented in this encounter Care Teams Belly Roller Relationship Specialty Start Date End Date Deborah Quiroga APRN PCP - General Family Medicine 03/24/16 02/04/23 documented as of this encounter
--- OUTSIDE RECORDS SUMMARY | 2024-05-09 15:23 | XMS_ITS | Encounter Summary ---
Author Organization [facility] Address [facility] [place] [address] Care Team Providers Care Fuel House Attendant Name Role Phone Deborah Quiroga ANURAG Primary Care Provider [phone] Encounter Details Date Type Department Care Team (Late Contact Info) Description 07/21/2017 Orders Only Hematology [place] [address] Alexandrea Greenwood RN Other neutropenia Social History [...] [facility] Hematology Oncology [address] [place] [address] 05/12/2024 10:00 AM EDT Office Visit Hematology [place] [address] Markel Borjas MD [facility] H[place]ATOLOG[place] [address] 03/01/2025 4:15 PM EDT Office Visit Dermatology at [address] [address] Marek Bonilla MD [address], [place] [address] documented as of this encounter Visit Diagnoses Diagnosis Other neutropenia Chronic idiopathic neutropenia Other neutropenia documented in this encounter Care Teams Fuel House Attendant Relationship Specialty Start Date End Date Deborah Quiroga APRN PCP - General Family Medicine 03/24/16 02/04/23 documented as of this encounter
--- OUTSIDE RECORDS SUMMARY | 2024-05-09 15:23 | XMS_ITS | Encounter Summary ---
Author Organization [facility] Address [facility] [place] [address] Care Team Providers Care Director Of Placement Name Role Phone Ashley Quirogazac Shields APRN Primary Care Provider [phone] Encounter Details Date Type Department Care Team [...] [facility] [place] On[place] [address] [place] [address] 05/12/2024 10:00 AM EDT Office Visit Hematology [place] [address] Markel Borjas MD [facility] [address] [place] [address] 03/01/2025 4:15 PM EDT Office Visit D[facility]ology at [place] [address] [facility] [address] Marek Bonilla MD [address] [facility] [place] [address] documented as of this encounter Visit Diagnoses Not on filedocumented in this encounter Care Teams Director Of Placement Relationship Specialty Start Date End Date Deborah Quiroga APRN PCP - General Family Medicine 03/24/16 02/04/23 documented as of this encounter
--- OUTSIDE RECORDS SUMMARY | 2024-05-09 15:23 | XMS_ITS | Encounter Summary ---
Author Organization [facility] [place] [address] Care Team Providers Care Parts Order And Stock Clerk Name Role Phone Ashley Quirogan Cornelius ANURAG Primary Care Provider [phone] Encounter Details Date Type Department Care Team (Late st Contact Info) Description 11/02/2022 Orders [place] [address] Emily Lyons PA [facility] [place] [address] Aortic valve stenosis, etiology of cardiac valve [...] [facility] Hematology Oncology [address] [place] [address] 05/12/2024 10:00 AM EDT Office Visit Hematology [place] [address] Markel Borjas MD [facility] DR [place] [address] 03/01/2025 4:15 PM EDT Office Visit Dermatology at [place] [address] [place] [address] Marek Bonilla MD [address], [place] [address] documented as of this encounter Visit Diagnoses Diagnosis Aortic valve stenosis, etiology of cardiac valve disease unspecified Chronic idiopathic neutropenia Other neutropenia documented in this encounter Care Teams Parts Order And Stock Clerk Relationship Specialty Start Date End Date Deborah Quiroga, BIOMETRICS ANALYST PCP - General Family Medicine 03/24/16 02/04/23 documented as of this encounter
--- OUTSIDE RECORDS SUMMARY | 2024-05-09 15:23 | XMS_ITS | Encounter Summary ---
Author Organization [facility] Address [facility] [place] [address] Care Team Providers Care Paginator Name Role Phone Deborah Quiroga ANURAG Primary Care Provider [phone] Encounter Details Date Type Department Care Team (Late st Contact Info) Description 06/18/2017 External Results Hematology [place] [address] Alexandrea Greenwood RN Neutropenia, unspecified type Social [...] [facility] Hematology Oncology [address] [place] [address] 05/12/2024 10:00 AM EDT Office Visit Hematology [place] [address] Markel Borjas MD [facility] HEMATOLOGY [place] [address] 03/01/2025 4:15 PM EDT Office Visit Dermatology at [address] [address] Marek Bonilla MD [address] [facility] [address] [address], [place] [address] documented as of this encounter Procedures Procedure Name Priority Date/Time Associated Diagnosis Comments CBC (WITH DIFF) Routine 06/11/2017 1:19 PM EST Neutropenia, unspecified type COMPREHENSIVE METABOLIC PANEL Routine 06/11/2017 1:19 PM EST Neutropenia, unspecified type documented in this encounter Results * Comprehensive metabolic panel (non-fasting) (06/11/2017 1:19 PM EST) Pathologist [facility] Blood Urea Nitrogen 13 7 - 18 [...] Diff) (06/11/2017 1:19 PM EST) Pathologist [facility] White Blood Cell 2.28(EXTER NAL/ABN) 4.4 - [...] neutropenia documented in this encounter Care Teams Paginator Relationship Specialty Start Date End Date Deborah Quiroga, MOTOR BIKE MECHANIC PCP - General Family Medicine 03/24/16 02/04/23 documented as of this encounter
--- OUTSIDE RECORDS SUMMARY | 2024-05-09 15:23 | XMS_ITS | Encounter Summary ---
Author Organization [facility] Address [facility] [place] [address] Care Team Providers Care Stucco Plasterer Name Role Phone Ashley Quirogazac Shields APRN Primary Care Provider [phone] Encounter Details Date Type Department Care Team [...] Laboratory Appointment Lab at [facility] Hematology Oncology [address] [place] [address] 05/12/2024 10:00 AM EDT Office Visit Hematology [place] [address] Markel Borjas MD [facility] [address] HEMATOLOGY [place] [address] 03/01/2025 4:15 PM EDT Office Visit Dermatology at [place] [address] [facility] [place] [address] Marek Bonilla MD [address] [facility] [address] [place] [address] documented as of this encounter Visit Diagnoses Not on filedocumented in this encounter Care Teams Stucco Plasterer Relationship Specialty Start Date End Date Deborah Quiroga APRN PCP - General Family Medicine 03/24/16 02/04/23 documented as of this encounter
--- OUTSIDE RECORDS SUMMARY | 2024-05-09 15:23 | XMS_ITS | Encounter Summary ---
Author Organization [facility] Address [facility] Erika lópezsylvia [place] [address] Care Team Providers Care Fibre Technologist Name Role Phone Deborah Quiroga APRN Primary Care Provider [phone] Encounter Details Date Type Department Care Team (Late st Contact Info) Description 01/09/2022 Refill Dermatology at [address] [address] Lupe Connor RN Social History [...] [facility] Hematology Oncology [address] [place] [address] 05/12/2024 10:00 AM EDT Office Visit [place] [address] Markel Borjas MD [facility] [address] [place] [address] 03/01/2025 4:15 PM EDT Office Visit Dermatology at [address] [address] Marek Bonilla MD [address], [place] [address] documented as of this encounter Visit Diagnoses Not on filedocumented in this encounter Care Teams Fibre Technologist Relationship Specialty Start Date End Date Deborah Quiroga APRN PCP - General Family Medicine 03/24/16 02/04/23 documented as of this encounter
--- OUTSIDE RECORDS SUMMARY | 2024-05-09 15:23 | XMS_ITS | Encounter Summary ---
Author Organization [facility] Address [facility] [place] [address] Care Team Providers Care Passenger Service Manager Name Role Phone Ashley Quirogan Cornelius ANURAG Primary Care Provider [phone] Encounter Details Date Type Department Care Team (Late st Contact Info) Description 03/04/2020 External Results Hematology [place] [address] TherBhumi villela Social History Tobacco Use Types [...] [facility] Hematology Oncology [address] [place] [address] 05/12/2024 10:00 AM EDT Office Visit Hematology [place] [address] Markel Borjas MD [facility] [address] [place] [address] 03/01/2025 4:15 PM EDT Office Visit Dermatology at [address] [phone] Marek Bonilla MD [address] [address], [place] [address] documented as of this encounter Procedures Procedure [...] filedocumented in this encounter Care Teams Passenger Service Manager Relationship Specialty Start Date End Date Deborah Quiroga, NETBACKUP ADMINISTRATOR PCP - General Family Medicine 03/24/16 02/04/23 documented as of this encounter
--- OUTSIDE RECORDS SUMMARY | 2024-05-09 15:23 | XMS_ITS | Encounter Summary ---
Author Organization [facility] Address [facility] [place] [address] Care Team Providers Care Trouble Lineman Name Role Phone Magdalena Acosta MD Primary Care Provider [phone] Encounter Details Date Type Department Care Team [...] [facility] [place] Hemat[facility] Oncology [address] [place] [address] 05/12/2024 10:00 AM EDT Office Visit Hematology [place] [address] Markel Borjas MD [facility] DR [place] [address] 03/01/2025 4:15 PM EDT Office Visit Dermatology at [place] [address] [facility] [place] [address] Marek Bonilla MD [address] [facility], [place] [address] documented as of this encounter Visit Diagnoses Not on filedocumented in this encounter Care Teams Trouble Lineman Relationship Specialty Start Date End Date Magdalena Acosta MD [address] [place] [address] PCP - General Family Medicine 02/05/23 documented as of this encounter
--- OUTSIDE RECORDS SUMMARY | 2024-05-09 15:23 | XMS_ITS | Encounter Summary ---
Author Organization [facility] Address [facility] [place] [address] Care Team Providers Care Release Manager Name Role Phone Deborah Quiroga APRN Primary Care Provider [phone] Encounter Details Date Type Department Care Team (Late st Contact Info) Description 06/18/2017 11:00 AM EST Office Visit Hematology [place] [address] Markel Borjas MD [facility] DR [place] [address] Neutropenia, unspecified type Social History Tobacco Use [...] 06/18/2017 11:00 AM EST Hematology Outpatient Clinic [facility] Hematology Outpatient Consult Note CC: [...] TOUCH PREP, CLOT SECTION, CORE ??BIOPSY); [OSR# [id number], COLLECTED 06/23/2016, 19 SLIDES]: ?1. ??Normocellular marrow [...] a clonal lymphoproliferative or myeloproliferative disorder (OSR# [id number]) Chromosome analysis on the marrow aspirate revealed [...] working the same job and participating in [employer] patients. Past Medical/Surgical History: 1. Leukopenia -element of neutropenia, as noted above 2. Aortic Stenosis -severe -AVR surgery 3. Hypercholesterolemia 4. Depression 5. Hypertension 6. 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 Extremities: No edema. Labs: Hgb= 13 Klzp=664 ANC= 0.6 Imaging As above - reviewed [...] [facility] Hematology Oncology [address] [place] [address] 05/12/2024 10:00 AM EDT Office Visit Hematology [place] [address] Markel Borjas MD [facility] DR [place] [address] 03/01/2025 4:15 PM EDT Office Visit Dermatology at [place] [address] [place] [address] Marek Bonilla MD [address], [place] [address] documented as of this encounter Visit Diagnoses Diagnosis Neutropenia, unspecified type Chronic idiopathic neutropenia Other neutropenia documented in this encounter Care Teams Release Manager Relationship Specialty Start Date End Date Deborah Quiroga APRN PCP - General Family Medicine 03/24/16 02/04/23 documented as of this encounter
--- OUTSIDE RECORDS SUMMARY | 2024-05-09 15:23 | XMS_ITS | Encounter Summary ---
[place] [address] Care Team Providers Care Motorbike Courier Name Role Phone Deborah Quiroga ANURAG Primary Care Provider [phone] Encounter Details Date Type Department Care Team (Late st Contact Info) Description 02/07/2020 Telephone Hematology [place] [address] lElen Rios RN Social History Tobacco Use Types [...] 02/07/2020 12:59 PM EDT Message received from patient care secretary: Injection/Infusion Referral Services to be provided for pt are: CBC only at [facility]- Pt will go by 02/27 Orders faxed to [phone]). Spoke with pt. She will call [facility] directly to schedule a time that works for her. documented in this encounter Plan of Treatment Upcoming Encounters Date Type Department Care Team (Late st Contact Info) Description 05/12/2024 9:00 AM EDT Laboratory Appointment Lab at [facility] Hematology Oncology [address] [place] [address] 05/12/2024 10:00 AM EDT Office Visit Hematology [place] [address] Markel Borjas MD [facility] DR [place] [address] 03/01/2025 4:15 PM EDT Office Visit Dermatology at [place] [address] [place] [address] Marek Bonilla MD [address] [address] documented as of this encounter Visit Diagnoses Not on filedocumented in this encounter Care Teams Motorbike Courier Relationship Specialty Start Date End Date Deborah Quiroga APRN PCP - General Family Medicine 03/24/16 02/04/23 documented as of this encounter
--- OUTSIDE RECORDS SUMMARY | 2024-05-09 15:23 | XMS_ITS | Encounter Summary ---
Author Organization Count Includes [facility] [address] Care Team Providers Care Patternmaker Helper Name Role Phone Deborah Quiroga APRN Primary Care Provider [phone] Reason for Referral * Consultation (Routine) - Closed Specialty Diagnoses / Procedures Referred By Crispin maxwell Referred To Contact Neurology Diagnoses Polyneuropathy Deborah Quiroga APRN [address] [facility] [place] [address] [facility] Neurology [address] [place] [phone] Referral ID Status Reason Start Date Expiration Date V isits Requested Visits Authorized [id number] Closed Consult, Test & Treat 10/29/2022 10/29/2023 1 1 Encounter Details Date Type Department Care Team (Latest Contact Info) Description 10/29/2022 Transcribe Orders eDH Incoming Referrals [phone] Deborah Quiroga APRN [address] [facility] [facility] [address] [place] [address] Polyneuropathy (Primary Dx) Social History [...] [facility] Hematology Oncology [address] [place] [address] 05/12/2024 10:00 AM EDT Office Visit Hematology [place] [address] Markel Borjas MD [facility] [address] HEMATOLOGY [place] [address] 03/01/2025 4:15 PM EDT Office Visit Dermatology at [place] [address] [place] [address] Marek Bonilla MD [address] Katherine [place] [address] Scheduled Referrals Name Type Priority Associated Diagnoses Orde r Schedule Referral to Neurology Outpatient Referral Routine Polyneuropathy Ordered: 10/29/2022 documented as of this encounter Visit Diagnoses Diagnosis Polyneuropathy- Primary Unspecified hereditary and idiopathic peripheral neuropathy Chronic idiopathic neutropenia Other neutropenia documented in this encounter Care Teams Patternmaker Helper Relationship Specialty Start Date End Date Deborah Quiroga APRN PCP - General Family Medicine 03/24/16 02/04/23 documented as of this encounter
--- OUTSIDE RECORDS SUMMARY | 2024-05-09 15:23 | XMS_ITS | Encounter Summary ---
Author Organization Formerly [facility] [place] [address] Care Team Providers Care Seo Strategist Name Role Phone Ashley Quirogan Cornelius ANURAG Primary Care Provider [phone] Encounter Details Date Type Department Care Team (Late st Contact Info) Description 02/06/2020 Orders Only [place]ematology [place] [phone] Markel Borjas MD [facility] [address] [place] [address] Neutropenia, unspecified type Social History Tobacco Use [...] [facility] H[facility] Oncology [address] [place] [address] 05/12/2024 10:00 AM EDT Office Visit Hematology [place] [address] Markel Borjas MD [facility] [address] [place] [address] 03/01/2025 4:15 PM EDT Office Visit Dermatology at [place] [address] [place] [address] Marek Bonilla MD [address] [place] [address] documented as of this encounter Visit Diagnoses Diagnosis Neutropenia, unspecified type Chronic idiopathic neutropenia Other neutropenia documented in this encounter Care Teams Seo Strategist Relationship Specialty Start Date End Date Deborah Quiroga APRN PCP - General Family Medicine 03/24/16 02/04/23 documented as of this encounter
--- OUTSIDE RECORDS SUMMARY | 2024-05-09 15:23 | XMS_ITS | Encounter Summary ---
[place] [address] Care Team Providers Care Product Safety Compliance Leader Name Role Phone Ashley Quirogan Cornelius ANURAG Primary Care Provider [phone] Reason for Visit * Reason Comments Acrochordon Rosacea Encounter Details Date Type Department Care Team (Late st Contact Info) Description 12/05/2020 3:00 PM EDT Office Visit Dermatology at [address] [address] Marek Bonilla MD [address] [facility] [place] [place] [address] Inflamed acrochordon Social History Tobacco Use Types [...] 9:00 AM EDT Laboratory Appointment Lab at [facility] Hematology Oncology [address] [place] [address] 05/12/2024 10:00 AM EDT Office Visit Hematology [place] [address] Markel Borjas MD [facility] [address] HEMATOLOGY [place] [address] 03/01/2025 4:15 PM EDT Office Visit Dermatology at [place] [address] [place] [address] Marek Bonilla MD [address] [facility] [place] [place] [address] documented as of this encounter Visit Diagnoses Diagnosis Inflamed acrochordon Unspecified hypertrophic and atrophic condition of skin Chronic idiopathic neutropenia Other neutropenia documented in this encounter Care Teams Product Safety Compliance Leader Relationship Specialty Start Date End Date Deborah Quiroga APRN PCP - General Family Medicine 03/24/16 02/04/23 documented as of this encounter
--- OUTSIDE RECORDS SUMMARY | 2024-05-09 15:23 | XMS_ITS | Encounter Summary ---
[place] [address] Care Team Providers Care Nursing Education Specialist Name Role Phone Ashley Quirogan Cornelius ANURAG Primary Care Provider [phone] Reason for Visit * Reason Onset Date Comments Medical Care Coordination 07/27/2017 Encounter Details Date Type Department Care Team (Late st Contact Info) Description 07/27/2017 Telephone Hematology [place] [address] Alexandrea Greenwood RN Medical Care Coordination Social [...] 07/27/2017 12:25 PM EST Message received from clinical secretary: Injection/Infusion Referral Call placed to [facility] @ [phone] Spoke w/ LEGAL RECRUITER Services to be provided for pt are: CBC/CMP DONE Q6 MONTHS X2 STARTING NOVEMBER 2017 TECH confirmed they would provide services to pt - I CALLED PT, LM. Pt orders faxed to [phone] documented in this encounter Plan of Treatment Upcoming Encounters Date Type Department Care Team (Late st Contact Info) Description 05/12/2024 9:00 AM EDT Laboratory Appointment Lab at [facility] Hematology Oncology [address] [place] [address] 05/12/2024 10:00 AM EDT Office Visit Hematology [place] [address] Markel Borjas MD [facility] [address] HEMATOLOGY [place] [address] 03/01/2025 4:15 PM EDT Office Visit Dermatology at [place] [address] [place] [address] Marek Bonilla MD [address] [place] [address] documented as of this encounter Visit Diagnoses Not on filedocumented in this encounter Care Teams Nursing Education Specialist Relationship Specialty Start Date End Date Deborah Quiroga APRN PCP - General Family Medicine 03/24/16 02/04/23 documented as of this encounter
--- OUTSIDE RECORDS SUMMARY | 2024-05-09 15:23 | XMS_ITS | Encounter Summary ---
Author Organization [facility] Address [facility] Erika [facility] [place] [address] Care Team Providers Care Shank Faker Name Role Phone Deborah Quiroga APRN Primary Care Provider [phone] Reason for Visit * Consultation (Routine) - Closed Specialty Diagnoses / Procedures Referred By Contkrystle t Referred To Contact Rheumatology Diagnoses Positive FRANCISCO (antinuclear antibody) Arthralgia, unspecified joint Sandy Wu APRN [address] [place] [address] [facility] Rheumatology [address] [place] [address] Referral ID Status Reason Start Date Expiration Date V isits Requested Visits Authorized [id number] Closed Consult, Test & Treat PCP Updated and/or Approved 01/01/2022 01/01/2023 6 6 Encounter Details Date Type Department Care Team (Latest Contact Info) Description 01/20/2022 10:00 AM EDT Office [place] [address] Raymond Loredo MD [facility] [address] Rosacea; Raynaud's phenomenon without gangrene; [...] over radiocarpal or ulnocarpal joints. 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 SJC/TJC 0/0. Hips: Full motion, [...] done locally or here at [facility] that the current time is not particularly interested it seems Raymond Loredo MD documented in this encounter Plan of Treatment Upcoming Encounters Date Type Department Care Team (Late st Contact Info) Description 05/12/2024 9:00 AM EDT Laboratory Appointment Lab at [facility] Hematology Oncology [address] [place] [address] 05/12/2024 10:00 AM EDT Office Visit Hematology [place] [address] Markel Borjas MD [facility] [address] [place] [address] 03/01/2025 4:15 PM EDT Office Visit Dermatology at [place] [address] [facility] [place] [address] Marek Bonilla MD [address] [place] [address] Scheduled Referrals Name Type Priority Associated Diagnoses Orde r Schedule Referral to Rheumatology Outpatient Referral Routine Positive FRANCISCO (antinuclear antibody) Arthralgia, unspecified joint Ordered: 01/01/2022 documented as of this encounter Visit Diagnoses Diagnosis Rosacea Raynaud's phenomenon without gangrene Positive FRANCISCO (antinuclear antibody) Other and unspecified nonspecific immunological findings Primary osteoarthritis involving multiple joints Carpal tunnel syndrome, bilateral Carpal tunnel syndrome Chronic idiopathic neutropenia Other neutropenia documented in this encounter Care Teams Shank Faker Relationship Specialty Start Date End Date Deborah Quiroga APRN PCP - General Family Medicine 03/24/16 02/04/23 documented as of this encounter
--- OUTSIDE RECORDS SUMMARY | 2024-05-09 15:23 | XMS_ITS | Encounter Summary ---
Author Organization Formerly [facility] Address [facility] [place] [address] Care Team Providers Care Ethylene Oxide Panelboard Operator Name Role Phone Deborah Quiroga ANURAG Primary Care Provider [phone] Encounter Details Date Type Department Care Team (Late st Contact Info) Description 01/14/2023 Refill Dermatology at [address] [address] Lupe Connor RN Social History [...] She would like the medication called into [facility] in [facility]. Discussed with Dr. Bonilla and he [...] Lab at [facility] Hematology Oncology [address] [place] [address] 05/12/2024 10:00 AM EDT Office Visit Hematology [place] [address] Markel Borjas MD [facility] [address] HEMATOLOGY [place] [address] 03/01/2025 4:15 PM EDT Office Visit Dermatology at [place] [address] [place] [address] Marek Bonilla MD [address] [place] [address] documented as of this encounter Visit Diagnoses Not on filedocumented in this encounter Care Teams Ethylene Oxide Panelboard Operator Relationship Specialty Start Date End Date Deborah Quiroga APRN PCP - General Family Medicine 03/24/16 02/04/23 documented as of this encounter
--- OUTSIDE RECORDS SUMMARY | 2024-05-09 15:23 | XMS_ITS | Encounter Summary ---
[place] [address] Care Team Providers Care Cookie Breaker Name Role Phone Junaid Deborah Shields APRN Primary Care Provider [phone] Reason for Visit * Reason Comments Annual Exam Encounter Details Date Type Department Care Team (Late st Contact Info) Description 01/09/2022 3:15 PM EDT Office Visit Dermatology at [address] [address] Marek Bonilla MD [address] [facility] A DERMATOLOGY [place], [place] [id number] Rosacea Social History Tobacco Use Types Packs/Day [...] ocular 2. Previously told by director of career resources that she had corneal tears from her [...] refills. We will call this into her [facility] in [place] 3. Continue metronidazole 0.75% gel applying every [...] [facility] Hematology Oncology [address] [place] [address] 05/12/2024 10:00 AM EDT Office Visit Hematology [place] [address] Markel Borjas MD [facility] [address] HEMATOLOGY [place] [address] 03/01/2025 4:15 PM EDT Office Visit Dermatology at [place] [address] [facility] [place] [address] Marek Bonilla MD [address] [facility] [place] [address] documented as of this encounter Visit Diagnoses Diagnosis Rosacea Chronic idiopathic neutropenia Other neutropenia documented in this encounter Care Teams Cookie Breaker Relationship Specialty Start Date End Date Deborah Quiroga APRN PCP - General Family Medicine 03/24/16 02/04/23 documented as of this encounter
--- OUTSIDE RECORDS SUMMARY | 2024-05-09 15:23 | XMS_ITS | Encounter Summary ---
Author Organization [facility] Address [facility] [place] [address] Care Team Providers Care Chamber Magistrate Name Role Phone Ashley Quirogazac Shields APRN Primary Care Provider [phone] Reason for Referral * Consultation (Routine) - Closed Specialty Diagnoses / Procedures Referred By Contac t Referred To Contact Neurology Diagnoses Neck pain Popeye Rogers MD [facility] [place] [address] Kyra Haas MD [facility] [address] [address] Referral ID Status Reason Start Date Expiration Date V isits Requested Visits Authorized [id number] Closed Consult, Test & Treat 06/29/2022 06/29/2023 1 1 Reason for Visit * Reason Comments Neck Pain Weak in both arms, p ain and tingling in arms and hands Encounter Details Date Type Department Care Team (Late st Contact Info) Description 06/29/2022 10:20 AM EST Office Visit [place] [address] Popeye Rogers MD [facility] [place] [address] Neck pain Social History Tobacco Use Types [...] have EMG and nerve conduction studies in [place] that showed carpal tunnel syndrome. I do not have a copy of that report. documented in this encounter Plan of Treatment Upcoming Encounters Date Type Department Care Team (Late st Contact Info) Description 05/12/2024 9:00 AM EDT Laboratory Appointment Lab at [facility] Hematology Oncology [address] [place] [address] 05/12/2024 10:00 AM EDT Office Visit [place]ology [place] [address] Markel Borjas MD [facility] [place] [address] 03/01/2025 4:15 PM EDT Office Visit Dermatology at [address] [place] [address] Marek Bonilla MD [address] [facility] [place] [address] Scheduled Referrals Name Type Priority Associated Diagnoses Orde r Schedule Referral to Neurology Outpatient Referral Routine Neck pain Ordered: 06/29/2022 documented as of this encounter Visit Diagnoses Diagnosis Neck pain Cervicalgia Chronic idiopathic neutropenia Other neutropenia documented in this encounter Care Teams Chamber Magistrate Relationship Specialty Start Date End Date Deborah Quiroga APRN PCP - General Family Medicine 03/24/16 02/04/23 documented as of this encounter
--- OUTSIDE RECORDS SUMMARY | 2024-05-09 15:24 | XMS_ITS | Encounter Summary ---
[place] [address] Care Team Providers Care Bindery Operator Name Role Phone Ashley Quirogazac Shields APRN Primary Care Provider [phone] Reason for Visit * Auth/Cert Specialty Diagnoses / Procedures Referred By Crispin t Referred To Contact Diagnoses Aortic stenosis Procedures PRO REPLACE AORT VALV, PROSTH VALV @REPLACE AORTIC VALVE, OPEN, W\CPB, W\PROSTHETIC VALVE (WRVU 41.32) Referral ID Status Reason Start Date Expiration Date Visits Re quested Visits Authorized [id number] 1 1 Encounter Details Date Type Department Care Team (Late st Contact Info) Description 09/21/2016 7:30 AM EST - 09/21/2016 12:04 PM EST Surgery [place] [address] Alirio Esparza MD @REPLACE AORTIC VALVE, OPEN, [...] Patient Age: 61 y.o. Birthdate: 1955 Language: [place] Islander Race: White Ethnicity: Not nor Admit Date: 09/21/2016 Discharge Date: 09/25/2016 Attending Physician: Alirio Esparza MD Follow-up Recommendations for Providers: Please continue routine management of cardiovascular risk factors including blood pressure, lipids,glucose, etc. Please note any changes to medications. Patient to follow-up with PCP, Deborah Quiroga APRN, in 1-2 weeks. Patient to follow-up with Clinical Staff Anesthesiologist, Dr. Antelmo Burrell, in two weeks. Patient to follow-up with Cardiac Surgery, Dr. Alirio Esparza, to be scheduled for before 10/19/2016, with CXR, EKG, and Echo. Inpatient Provider Contact Information: [facility] Section of Cardiac Surgery [facility] [place] [address] FAX [phone] Discharge Diagnoses (Hospital Problems) Primary Diagnoses: Secondary [...] 41.32) performed by Alirio Esparza MD at [facility] MAIN OR ??? Pro aortoplas for supravalv sten N/A 09/21/2016 @AORTOPLASTY FOR SUPRAVALVULAR STENOSIS (WRVU 29.33) performed by Alirio Esparza MD at [facility] MAIN OR Prior To Admission [...] Hospital Course: Purnima Thacker was admitted to [facility] on 09/21/2016 via the Same Day [...] Alirio Esparza and/or the Cardiac Surgery Physician Comber Fixer Team may be reached at . Antibiotic prophylaxis: You will need to take antibiotics prior to many invasive tests and treatments, such as dental cleaning, which should be done every 6 months. Your primary care physician or your dentist can prescribe this medication. Please refer to the card with the [place] Heart Association Guidelines for more information. You have been provided with 3 copies of this card. Keep one for your self. Give one to your primary care physician and one to your dentist. Please refer to the [place] Heart Association Guidelines for more information. Good [...] Dr. Alirio Jones. You may use a Churdan Track or treadmill but avoid any pulling [...] a low fat, low cholesterol, [place] Heart Association Diet. Driving: No driving until [...] AM Markel Borjas MD [facility] [phone] Future Orders Complete By Expires Echocardiogram Transthoracic([place]eb) [QFO517 Custom] 10/18/2016 (Approximate) 09/18/2017 Process Instructions: If the Echocardiogram is to be PERFORMED in a DH location other than [place]--STOP and order [id number], Echocardiogram South/External. Scheduling Instructions: Questions: Is a Bubble Study requested?: No Does the patient have Congenital Heart Disease?: No Does patient require sedation?: None GA rationale: Should this service be billed to the research sponsor?: EKG 12 Lead [EKG1 Custom] 10/18/2016 (Approximate) 09/25/2017 Process Instructions: Scheduling Instructions: Questions: Which DH location will this be performed?: [place] Is a rhythm strip needed?: No If EKG Reason is Pre-op Evaluation, indicate diagnosis for surgery.: Should this service be billed to the research sponsor?: XR Chest PA & Lateral (Generic) [[id number] Custom] 10/18/2016 (Approximate) 09/25/2017 Process Instructions: Scheduling Instructions: Questions: Where will study be performed?: [facility] Rad[facility] Portable exam?: No Reason for exam and clinical history: s/p AVReplacement, patch annuloplasty 1 month f/u Other pertinent information: Stat read required?: Date of injury if applicable: Requested Time: Referral to Cardiac Rehab [IVN689 Custom] As directed Process Instructions: If no progress note charted, please enter Clinical details in comments. Scheduling Instructions: Questions: My question or request is: s/p AVR. Cardiac rehab at [facility] Referral to Home Health - at DISCHARGE [VZO5350 CPT(R)] As directed Process Instructions: Scheduling Instructions: Comments: DOCUMENTATION FOR VNA SERVICES (INCLUDING THOSE PATIENTS WITH MEDICARE COVERAGE REQUIRING HOME VNA SERVICES AND/OR HOSPICE SERVICES) PATIENT'S LOCATION: Purnimakary Gallego[address] [address] (home) No relevant phone numbers on file. Table Keeper's Name: self In discussion with the attending physician, it is certified that this patient is under their care and that they, or a Nurse Practitioner, or Physician Comber Fixer who is working directly with them, hada [...] for services as follows: HOME HEALTH AGENCY: [facility] PHONE: [phone] FAX: [phone] RN orders: Cardiopulmonary assessment, incisional assessment, assess [...] issues please call the Cardiac SurgeryOffice at [phone] FOR MEDICARE ONLY: In discussion with the [...] Signed: Crispin Aranda PA-C 09/25/2016 [facility] Section of Cardiac Surgery [facility] [place] [address] FAX [phone] Date: 09/25/2016 CC: ANURAG Alford Caryn E, APRN [address] [place] [address] documented in this encounter Discharge Instructions * [...] Alirio Esparza and/or the Cardiac Surgery Physician Comber Fixer Team may be reached at . Antibiotic prophylaxis: You will need to take antibiotics prior to many invasive tests and treatments, such as dental cleaning, which should be done every 6 months. Your primary care physician or your dentist can prescribe this medication. Please refer to the card with the [place] Heart Association Guidelines for more information. You have been provided with 3 copies of this card. Keep one for your self. Give one to your primary care physician and one to your dentist. Please refer to the [place] Heart Association Guidelines for more information. Good [...] Dr. Alirio Jones. You may use a Churdan Track or treadmill but avoid any pulling [...] a low fat, low cholesterol, [place] Heart Association Diet. Driving: No driving until [...] by mouth daily. spironolactone (ALDACTONE) 25 mg Tablet Take 0.5 tablets by mouth daily. 10/03/2016 05/22/2023 furosemide (LASIX) 20 mg Tablet Take 1 [...] by mouth daily. 30 tablet 09/25/2016 10/20/2016 meTOPROLOL tartrate (LOPRESSOR) 25 mg Tablet Take [...] PM EST Cardiac Surgery Progress Note: ID: [id number] S/p AVR, patch aortoplasty POD#2. PMH of [...] Gas) No results found for: PHART, PO2ART, KQP4BLC Assessment/Plan: TPW out this am. (+) BM. [...] Signed: Crispin Aranda PA-C 09/24/2016 Team pager: [phone]; [phone] after 5pm [facility] Section of Cardiac Surgery * Leonor Henson S, LIFE SKILLS COACH - 09/23/2016 10:48 AM EST Cardiac Surgery Progress Note: ID: [id number] s/p AVR, patch aortoplasty POD#2. PMH of [...] Gas) No results found for: PHART, PO2ART, KGL7QWD Assessment/Plan: s/p AVR, patch aortoplasty POD#2. PMH [...] Surgeon on rounds. Signed: Leonor Henson APRN [facility] Section of Cardiac Surgery Date: 09/23/2016 * Nico Palacios PA - 09/22/2016 9:56 AM EST Cardiac Surgery Progress Note: ID: [id number] s/p AVR, patch aortoplasty POD#1. PMH of [...] NT, ND, soft. Ext: Moves all extremities. [place], well perfused. Incisions: C/D/I Tubes/Lines/Drains: PIV, richi, [...] Attending Surgeon on rounds. Signed: EKATERINA KIM [facility] Section of Cardiac Surgery Date: 09/22/2016 [...] left pleural effusion. T/L/D Al ETT CVL [facility] Pacing wires ASSESSMENT, MANAGEMENT, and DECISION [...] Outcome (s) achieved Date Met: 09/25/16 09/25/16 3249 Coping/Psychosocial Plan Of Care Reviewed With patient [...] Lalitha Cohen [facility] Pager: [phone] Inpatient Physical Therapy Patient status, treatment interventions, and goals discussed with student. I am in agreement with all details and associated flowsheet rows as documented and was present for all aspects of the patient treatment session. Nery Jaramillo, CANDY Pager [phone] Problem: Acute Rehab Services Goal & Intervention Plan Goal: Bed Mobility Goal Stand Alone Therapy Goal Outcome: Ongoing (Interventions Implemented as Appropriate) 09/22/16 1611 09/25/16 0947 Bed Mobility Goal Bed Mobility Goal, Time to Achieve 4 days -- Bed Mobility Goal, Activity Type scoot/bridge;supine to sit/sit to supine -- Bed Mobility Goal, [place] Level independent -- Bed Mobility Goal, Additional [...] Achieve 4 days -- Gait Training Goal, [place] Level independent -- Gait Training Goal, Distance [...] encouraged * Plan of Care - Marek aBrnes RN - 09/24/2016 11:46 AM EST Problem: [...] assist, home with home health [facility] Pager: [phone] Inpatient Physical Therapy Patient status, treatment interventions, and goals discussed with student. I am in agreement with all details and associated flowsheet rows as documented and was present for all aspects of the patient treatment session. Nery Jaramillo, CORN SHREDDER Pager [phone] Problem: Acute Rehab Services Goal & Intervention Plan Goal: Bed Mobility Goal Stand Alone Therapy Goal Outcome: Ongoing (Interventions Implemented as Appropriate) 09/22/16161009/23/161411 Bed Mobility Goal Bed Mobility Goal, Time to Achieve 4 days -- Bed Mobility Goal, Activity Type scoot/bridge;supine to sit/sit to supine -- Bed Mobility Goal, [place] Level independent -- Bed Mobility Goal, Additional [...] Achieve 4 days -- Gait Training Goal, [place] Level independent -- Gait Training Goal, Distance [...] days -- Transfer Training Goal, Activity Type ett-wb-apbjf/qunrs-mv-nby;cjv-gy-csmqh/qicvj-ga-ubv -- Transfer Train Goal, [place] Level independent -- Transfer Training Goal, Additional Goal abides sternal precautions -- Transfer Training Goal, Outcome -- goal met * Consult Note - Jana Crenshaw RN - 09/23/2016 9:41 AM EST [facility] Purnima Thacker was seen today [...] Another Service: (cardiac rehab) NICOLE HERNANDEZ, PT Pager:[phone] Inpatient Physical Therapy Problem: Acute Rehab Services Goal & Intervention Plan Goal: Bed Mobility Goal Stand Alone Therapy Goal Outcome: Ongoing (Interventions Implemented as Appropriate) 09/22/161610 Bed Mobility Goal Bed Mobility Goal, Time to Achieve 4 days Bed Mobility Goal, Activity Type scoot/bridge;supine to sit/sit to supine Bed Mobility Goal, [place] Level independent Bed Mobility Goal, Additional Goal able to abide sternal precautions during transfers Goal: Gait Training Goal Stand Alone Therapy Goal Outcome: Ongoing (Interventions Implemented as Appropriate) 09/22/161610 Gait Training Goal Gait Training Goal, Date Established 09/22/16 Gait Training Goal, Time to Achieve 4 days Gait Training Goal, [place] Level independent Gait Training Goal, Distance to Achieve ascend and descends 2 steps independently Goal: Goal Transfer Training Stand Alone Therapy Goal Outcome: Ongoing (Interventions Implemented as Appropriate) 09/22/161610 Goal Transfer Training Transfer Training Goal, Time to Achieve 4 days Transfer Training Goal, Activity Type ssn-vb-ftgvu/aiszp-ct-juy;dyw-dc-qzxmj/mbohz-dh-osy Transfer Train Goal, [place] Level independent Transfer Training Goal, Additional Goal [...] of completing AD's at home, chooses her jthdfm-hv-wob, Martha Thacker (home) for her DPOAH, 2nd choice in friend, Nitesh Rad, [place], [place] Current Coping/Education/Information Needs: patient sitting up [...] close by, Rashad & Raymond, and her qdkwpl-wl-hzs Martha Thacker who she has chosen to be her DPOAH. Also has a friend Nitesh Leroy who lives in [place], [place], also her DPOAH choice. Behavioral Health History: none on file in e[facility] Substance Use/Abuse: none on file in e[facility] Other Pertinent/Service Specific Information: none Health/Prescription Coverage: Primary Insurance: [employer] Secondary Insurance: none Prescription Coverage: yes, per patient no issues Preferred Pharmacy: ?? Other: none Primary Care Provider: Deborah Quiroga, LIFE SKILLS COACH [phone] Patient/Caregiver Goals of Treatment: per medical team recommendations at discharge for CT surgery Potential Needs for Transition of Care: Rehab/SNF: TBD Home Health: TBD DME: no Dialysis: no Community Resources: non3 Transportation: ride home with a friend Other: none Anticipated Barriers to Discharge/Special Considerations: none anticipated at this time Plan: patient will need VNA services at discharge. The patient/manufacturers service representative has been provided a list of Home Health Agencies/DME vendors which servetheir preferred geographic area. A letter describing our affiliations was reviewed with them and they were educated about their right to choose where referrals are placed. Patient requests referral to: [facility]. PHONE: [phone] FAX: [phone] Expected date of discharge: Fri/Sat? CM called VNA to confirm referral, talked with VALDO Bunn/intake who stated she was familiar w/patient & would monitor her progress through curaspan. Referral routed to the Stave Planer Tender for matching with agency/vendor and to provide any required information. A member of the Care Management team will continue to monitor progress, follow for continuity of care and assist with transition of care planning. Amanda Moreno RN Pager: [phone] * Op Note - Alirio Esparza MD - 09/21/2016 12:53 PM EST 09/23/2016 Purn[place] Thacker 1955 [id number] Preoperative Diagnosis: Symptomatic aortic stenosis Postoperative Diagnosis: Symptomatic aortic stenosis Procedure: Aortic valve replacement: Bovine Pericardial 25 mm Surgeon: Alirio Esparza M.D. Comber Fixer: Philip BALL Anesthesia: General endotracheal anesthesia Drains: [...] applied. The patient was transported to the [facility] on levo. All counts were correct. [...] Operative Note Patient Name: Purnima Thacker : [id number] MR#: [id number] Case Date: 09/21/2016 Surgeon: Surgeon(s) and Role: * Alirio Esparza MD - Primary * Nico Palacios PA - Physician Comber Fixer Preoperative diagnosis: Postoperative diagnosis: Procedure(s) (LRB): @REPLACE [...] [facility] [place] [address] [place] [address] 05/12/2024 10:00 AM EDT Office Visit [place] [address] Markel Borjas MD [facility] [address] [place] [address] 03/01/2025 4:15 PM EDT Office Visit Dermatology at [place] [address] [place] [address] Marek Bonilla MD [address], [place] [address] Scheduled Orders Name Type Priority Associated Diagnoses [...] IMPLANTABLE DEVICES SCAN 09/26/2016 12:00 AM EST STIFF LEG OPERATOR SCAN 09/26/2016 12:00 AM EST POTASSIUM [...] SCAN EXT O RDR/RSLT * SCAN DOC: STIFF LEG OPERATOR (09/26/2016 12:00 AM EST) Anatomical Region [...] CHEMISTRY ORDERABLE S [facility] [place] [address] * (ABNORMAL) Differential, Automated (09/24/2016 9:56 AM EST) Pathologist [facility] Neutrophil % 76.8 % [facility] Neutrophil Absolute 7.79(H) 1.70 - 6.10 x10(3)/mc L [facility] Lymph % 11.1 % [facility] Lymphocytes Abs 1.1 0.9 - 3.2 x10(3)/mc L [facility] Monocyte % 8.5 % [facility] Monocyte Abs 0.9 0.3 - 0.9 x10(3)/mc L [facility] Eos % 0.5 % [facility] Eosinophils Abs 0.0 0.0 - 0.4 x10(3)/mc L [facility] Basophil % 0.2 % [facility] [...] HEMATOLOGY ORDERABL ES [facility] [place] [address] * (ABNORMAL) Hemogram (09/24/2016 9:56 AM EST) [...] Standard Deviation 45.0 37.0 - 46.0 fL [facility] RDW coefficient of variation 12.6 11.5 - 14.1 % [facility] Mean Platelet Volume 9.4 7.6 - 12.9 fL [facility] NRBC% auto 1.1 % [facility] NRBC Absolute 0.110(H) 0.000 - 0.000 x10(3)/mc L [facility] Blood specimen (specimen) 09/24/2016 9:56 AM EST 09/24/2016 10:04 AM EST Narrative Resulting Agency Comment Spec In Lab Alirio Esparza MD HEMATOLOGY ORDERABL ES [facility] [place] [address] * (ABNORMAL) Basic Metabolic Panel (non-fasting) (09/24/2016 [...] the following links into your internet browser. [email or web address] Blood specimen (specimen) 09/24/2016 9:56 AM EST 09/24/2016 10:04 AM EST Narrative Resulting Agency Comment Spec In Lab Alirio Esparza MD CHEMISTRY ORDERABLE S [facility] [place] [address] * XR Chest PA & Lateral (Generic) [...] CHEMISTRY ORDERABLE S [facility] [place] [address] * POCT Glucose (09/22/2016 8:17 AM EST) Glucose, POC 131 65 - 199 mg/dL [facility] Comment: Supplemental ranges: <140 mg/dL before meals <180 mg/dL all other times of the day Blood specimen (specimen) 09/22/2016 8:17 AM EST 09/22/2016 8:17 AM EST Alirio Esparza MD POINT OF CARE TEST ORDERABLES [facility] [place] [address] * POCT Glucose (09/22/2016 4:01 AM EST) Glucose, POC 135 65 - 199 mg/dL [facility] Comment: Supplemental ranges: <140 mg/dL before meals <180 mg/dL all other times of the day Blood specimen (specimen) 09/22/2016 4:01 AM EST 09/22/2016 4:01 AM EST Alirio Esparza MD POINT OF CARE TEST ORDERABLES [facility] [place] [address] * Scan, Peripheral Blood (09/22/2016 4:00 AM EST) Plat estimate Normal [facility] RBC Morphology Abnormal [facility] Macrocyte 1-5 /HPF [facility] Plat, Giant Less than 1 /HPF [facility] Blood specimen (specimen) 09/22/2016 4:00 AM EST 09/22/2016 4:34 AM EST Narrative Resulting Agency Comment Spec In Lab Alirio Esparza MD HEMATOLOGY ORDERABL ES Performing Organization Address [facility]/ZIP Co de Phone Number [facility] [place] [address] * Electrolytes panel (09/22/2016 4:00 AM EST) Pathologist [facility] Sodium 145 135 - 145 mmol/L [facility] [...] MD CHEMISTRY ORDERABLE S Performing Organization Address City/[facility]/ZIP Co de Phone Number [facility] [place] [address] * (ABNORMAL) Differential, Automated (09/22/2016 4:00 AM EST) Neutrophil % 70.9 % [facility] Neutrophil Absolute 5.33 1.70 - 6.10 x10(3)/mc L [facility] Lymph % 9.1 % [facility] Lymphocytes Abs 0.7(L) 0.9 - 3.2 x10(3)/[facility] Monocyte % 18.0 % [facility] Monocyte Abs 1.4(H) 0.3 - 0.9 x10(3)/[facility] Eos % 0.0 % [facility] Eosinophils Abs 0.0 0.0 - 0.4 x10(3)/[facility] Basophil % 0.1 % [facility] Baso Absolute 0.0 0.0 - 0.1 x10(3)/[facility] Immature Gran % 1.90 % [facility] Comment: Immature granulocytes(IG's)percentage and absolute count will include metamyelocytes, myelocytes, and promyelocytes. Blood smears from CBCs yielding IG's will be scanned manually for concordance. If this scan disagrees with the automated IG or if promyelocytes are noted, a manual differential will be performed. Immature Gran Absolute 0.14(H) 0.00 - 0.04 x10(3)/[facility] Blood specimen (specimen) 09/22/2016 4:00 AM EST 09/22/2016 4:34 AM EST Narrative Resulting Agency Comment Spec In Lab Alirio Esparza MD HEMATOLOGY ORDERABL ES [facility] [place] [address] * (ABNORMAL) Hemogram (09/22/2016 4:00 AM EST) White Blood Cell 7.5 4.0 - 9.5 x10(3)/[facility] Red Blood Cell 2.93(L) 4.00 - 5.21 x10(6)/[facility] Hemoglobin 9.2(L) 11.7 - 15.5 gm/dL [...] Platelet 161 145 - 357 x10(3)/mc L [facility] RDW Standard Deviation 44.0 37.0 - 46.0 fL [facility] RDW coefficient of variation 12.6 11.5 - 14.1 % [facility] Mean Platelet Volume 9.3 7.6 - 12.9 fL [facility] NRBC% auto 0.3 % [facility] NRBC Absolute 0.020(H) 0.000 - 0.000 x10(3)/mc L [facility] Blood specimen (specimen) 09/22/2016 4:00 AM EST 09/22/2016 4:34 AM EST Narrative Resulting Agency Comment Spec In Lab Alirio Esparza MD HEMATOLOGY ORDERABL ES Performing Organization Address City/State/[facility] Co de Phone Number [facility] [place] [address] * (ABNORMAL) Cardiac Enzymes (09/22/2016 4:00 AM [...] of the Joint Society of Cardiology/[place] College of Cardiology Committee for the redefinition of myocardial infarction. ??Journal of the [place] College of Cardiology 2000; 36: 959-969] Creatine Kinase 338(H) 0 - 160 unit/L [facility] Blood specimen (specimen) 09/22/2016 4:00 AM EST 09/22/2016 4:34 AM EST Narrative Resulting Agency Comment Spec In Lab Alirio Esparza MD CHEMISTRY ORDERABLE S Performing Organization Address [facility] de Phone Number [facility] [place] [address] * (ABNORMAL) Glucose, fasting (09/22/2016 4:00 AM [...] Mellitus, Position Statement from the [place] Diabetes Association. ??Diabetes Care, Volume 33, Supplement 1, Aug 2009 Blood specimen (specimen) 09/22/2016 4:00 AM EST 09/22/2016 4:34 AM EST Narrative Resulting Agency Comment Spec In Lab Alirio Esparza MD CHEMISTRY ORDERABLE S Performing Organization Address [facility] Co de Phone Number [facility] [place] [address] * (ABNORMAL) Creatinine (09/22/2016 4:00 AM EST) [facility] Creatinine 0.69(L) 0.70 - 1.20 mg/dL [facility] [...] the following links into your internet browser. [email or web address] Blood specimen (specimen) 09/22/2016 4:00 AM EST 09/22/2016 4:34 AM EST Narrative Resulting Agency Comment Spec In Lab Alirio Esparza MD CHEMISTRY ORDERABLE S Performing Organization Address City/[facility] Co de Phone Number [facility] [place] [address] * BUN (09/22/2016 4:00 AM EST) [facility] Blood Urea Nitrogen 10 8 - 18 mg/dL [facility] Blood specimen (specimen) 09/22/2016 4:00 AM EST 09/22/2016 4:34 AM EST Narrative Resulting Agency Comment Spec In Lab Alirio Esparza MD CHEMISTRY ORDERABLE S Performing Organization Address [facility]/ZIP Co de Phone Number [facility] [place] [address] * POCT Glucose (09/21/2016 9:59 PM EST) Glucose, POC 146 65 - 199 mg/dL [facility] Comment: Supplemental ranges: <140 mg/dL before meals <180 mg/dL all other times of the day Blood specimen (specimen) 09/21/2016 9:59 PM EST 09/21/2016 9:59 PM EST Alirio Esparza MD POINT OF CARE TEST ORDERABLES Performing Organization Address City/[facility]/ZIP Co de Phone Number [facility] [place] [address] * POCT Glucose (09/21/2016 7:26 PM EST) Glucose, POC 152 65 - 199 mg/dL [facility] Comment: Supplemental ranges: <140 mg/dL before meals <180 mg/dL all other times of the day Blood specimen (specimen) 09/21/2016 7:26 PM EST 09/21/2016 7:26 PM EST Alirio Esparza MD POINT OF CARE TEST ORDERABLES Performing Organization Address [facility] Co de Phone Number [facility] [place] [address] * POCT Glucose (09/21/2016 6:00 PM EST) Glucose, POC 146 65 - 199 mg/dL [facility] Comment: Supplemental ranges: <140 mg/dL before meals <180 mg/dL all other times of the day Blood specimen (specimen) 09/21/2016 6:00 PM EST 09/21/2016 6:00 PM EST Alirio Esparza MD POINT OF CARE TEST ORDERABLES Performing Organization Address City/[facility] Co de Phone Number [facility] [place] [address] * (ABNORMAL) BLOOD GAS 2 ARTERIAL (09/21/2016 4:42 PM EST) [facility] pH, Arterial 7.35(L) 7.35 - 7.45 [facility] PCO2, Arterial 48(H) 35 - 45 mmHg [facility] PO2, Arterial 108(H) 85 - 104 mmHg [facility] Bicarbonate, Arterial 26.0 20.0 - 26.0 mmol/L [facility] Base Excess, Arterial 0.5 -3.0 [...] [facility] FIO2 Art 40 % [facility] PF Ratio Art 270 [facility] Blood specimen (specimen) 09/21/2016 4:42 PM EST 09/21/2016 4:42 PM EST Alirio Esparza MD POINT OF CARE TEST ORDERABLES Performing Organization Address [facility] Co de Phone Number [facility] [place] [address] * POCT Glucose (09/21/2016 4:07 PM EST) Pathologist [facility] Glucose, POC 150 65 - 199 mg/dL [facility] Comment: Supplemental ranges: <140 mg/dL before meals <180 mg/dL all other times of the day Blood specimen (specimen) 09/21/2016 4:07 PM EST 09/21/2016 4:07 PM EST Alirio Esparza MD POINT OF CARE TEST ORDERABLES Performing Organization Address [facility] de Phone Number [facility] [place] [address] * (ABNORMAL) Hemoglobin (09/21/2016 4:05 PM EST) [facility] Hemoglobin 9.9(L) 11.7 - 15.5 gm/dL [facility] Blood specimen (specimen) 09/21/2016 4:05 PM EST 09/21/2016 4:20 PM EST Narrative Resulting Agency Comment Spec In Lab Alirio Esparza MD HEMATOLOGY ORDERABL ES Performing Organization Address [facility] Phone Number [facility] [place] [address] * Potassium (09/21/2016 4:05 PM EST) [facility] Potassium 4.6 3.5 - 5.0 mmol/L [facility] [...] MD CHEMISTRY ORDERABLE S Performing Organization Address [facility] Co de Phone Number [facility] [place] [address] * POCT Glucose (09/21/2016 2:52 PM EST) Glucose, POC 117 65 - 199 mg/dL [facility] Comment: Supplemental ranges: <140 mg/dL before meals <180 mg/dL all other times of the day Blood specimen (specimen) 09/21/2016 2:52 PM EST 09/21/2016 2:52 PM EST Alirio Esparza MD POINT OF CARE TEST ORDERABLES Performing Organization Address [facility] Co de Phone Number [facility] [place] [address] * POCT Glucose (09/21/2016 1:51 PM EST) Glucose, POC 108 65 - 199 mg/dL [facility] Comment: Supplemental ranges: <140 mg/dL before meals <180 mg/dL all other times of the day Blood specimen (specimen) 09/21/2016 1:51 PM EST 09/21/2016 1:51 PM EST Alirio Esparza MD POINT OF CARE TEST ORDERABLES Performing Organization Address [facility] Co de Phone Number [facility] [place] [address] * POCT Glucose (09/21/2016 12:54 PM EST) Glucose, POC 128 65 - 199 mg/dL [facility] Comment: Supplemental ranges: <140 mg/dL before meals <180 mg/dL all other times of the day Blood specimen (specimen) 09/21/2016 12:54 PM EST 09/21/2016 12:54 PM EST Alirio Esparza MD POINT OF CARE TEST ORDERABLES [facility] [place] [address] * EKG 12 Lead (09/21/2016 12:26 PM EST) Ventricular rate 87 BPM MUSE SYSTEM Atrial Rate 87 BPM MUSE SYSTEM P-R Interval 256 ms MUSE SYSTEM QRS Duration 90 ms MUSE SYSTEM Q-T Interval 406 ms MUSE SYSTEM QTC Calculated (Bezet) 488 ms MUSE SYSTEM Calculated P [place] 24 degrees MUSE SYSTEM Calculated R [place] 21 degrees MUSE SYSTEM Calculated T [place] -5 degrees MUSE SYSTEM INTERPRETATION Sinus rhythm [...] course of the esophagus and below the [id number]-fs-khsl. There is a right IJ PA catheter [...] the course of theesophagus and below the ugzou-uy-fmpz. There is a right IJ PA catheter [...] [facility] FIO2 Art 100 % [facility] PF Ratio Art 356 [facility] Blood specimen (specimen) 09/21/2016 12:20 PM EST 09/21/2016 12:20 PM EST Alirio Esparza MD POINT OF CARE TEST ORDERABLES Performing Organization Address [facility] Phone Number [facility] [place] [address] * (ABNORMAL) BLOOD GAS 2 ARTERIAL (09/21/2016 [...] [facility] FIO2 Art 95 % [facility] Flow Art 0.7 LPM [facility] PF Ratio Art 313 [facility] Temp Art 36.7 Celsius [facility] Blood specimen (specimen) 09/21/2016 10:54 AM EST 09/21/2016 10:54 AM EST Alirio Esparza MD POINT OF CARE TEST ORDERABLES Performing Organization Address City/State/[facility] Co de Phone Number [facility] [place] [address] * Thrombin time (09/21/2016 10:50 AM EST) [...] Organization Address [facility] de Phone Number [facility] [place] [address] * Fibrinogen (09/21/2016 10:50 AM EST) Fibrinogen [...] HEMATOLOGY ORDERABLE S Performing Organization Address [facility] de Phone Number [facility] [place] [address] * APTT (09/21/2016 10:50 AM EST) [facility] Partial Thromboplastin Time 32 25 - 35 sec [facility] Comment: The recommended therapeutic range for full dose, unfractionated heparin at [facility] is 80 ? 114 seconds. The use [...] Organization Address [facility] de Phone Number [facility] [place] [address] * (ABNORMAL) Prothrombin Time (09/21/2016 10:50 AM [...] HEMATOLOGY ORDERABLE S [facility] [place] [address] * (ABNORMAL) Hemogram (09/21/2016 10:50 AM EST) [...] [facility] NRBC% auto 0.1 % [facility] NRBC Absolute 0.020(H) 0.000 - 0.000 x10(3)/mc L [facility] Blood specimen (specimen) 09/21/2016 10:50 AM EST 09/21/2016 10:56 AM EST Narrative Resulting Agency Comment Spec In Lab Luis Enrique Quarles MD HEMATOLOGY ORDERABLE S Performing Organization Address [facility] de Phone Number [facility] [place] [address] * Prepare Platelets, Apheresis (09/21/2016 10:30 AM EST) Dispensed? Yes [facility] Blood specimen (specimen) 09/21/2016 10:30 AM EST 09/21/2016 10:28 AM EST Alirio Esparza MD BLOOD BANK PRODUCT ORDERABLES Performing Organization Address [facility] Phone Number [facility] [place] [address] * (ABNORMAL) BLOOD GAS 2 ARTERIAL (09/21/2016 10:05 AM EST) pH, Arterial 7.33(L) 7.35 - 7.45 [facility] PCO2, Arterial 54(Critic al) 35 - 45 mmHg [facility] Comment:Noted by instrument technologist. PO2, [...] [facility] Comment: Noted by instrument technologist. [...] [facility] Temp Art 37.0 Celsius [facility] Blood specimen (specimen) 09/21/2016 10:05 AM EST 09/21/2016 10:05 AM EST Alirio Esparza MD POINT OF CARE TEST ORDERABLES [facility] [place] [address] * (ABNORMAL) BLOOD GAS 2 ARTERIAL (09/21/2016 9:44 AM EST) pH, Arterial 7.22(Criti gabrielle) 7.35 - 7.45 [facility] Comment:Noted by instrument technologist. PCO2, Arterial 70(Critica l) 35 - 45 mmHg [facility] Comment:Noted by instrument technologist. PO2, [...] CARE TEST ORDERABLES [facility] [place] [address] * (ABNORMAL) Hemoglobin (09/21/2016 9:42 AM EST) Hemoglobin 7.2(L) 11.7 - 15.5 gm/dL [facility] Blood specimen (specimen) 09/21/2016 9:42 AM EST 09/21/2016 9:51 AM EST Narrative Resulting Agency Comment Spec In Lab Alirio Esparza MD HEMATOLOGY ORDERABL ES Performing Organization Address [facility]/ZIP Co de Phone Number [facility] [place] [address] * Platelet count (09/21/2016 9:42 AM EST) Platelet 159 145 - 357 x10(3)/mc L [facility] Immature Plt % 1.6 0.0 - 7.4 % [facility] Comment: Limitation of the Immature Platelet Fraction (IPF)-May be less reliable when the platelet count is less than 02n167/uL due to statistical imprecision. The IPF value [...] in a decreased state of production. References: [employer] The Clinical Value of the Immature Platelet Fraction (IPF) in Cell Recovery Document Number 10-1143 12/2010 [employer] The Role of the Immature Platelet Fraction (IPF) in the Differential Diagnosis of Thrombocytopenia, Document MKT-10-1209 V05/07/15 P0514 Blood specimen (specimen) 09/21/2016 9:42 AM EST 09/21/2016 9:51 AM EST Narrative Resulting Agency Comment Spec In Lab Alirio Esparza MD HEMATOLOGY ORDERABL ES Performing Organization Address [facility] Co de Phone Number [facility] [place] [address] * (ABNORMAL) Hematocrit (09/21/2016 9:42 AM EST) [...] Performing Organization Address [facility] de Phone Number [facility] [place] [address] * Fibrinogen (09/21/2016 9:42 AM EST) Fibrinogen [...] ES Performing Organization Address [facility] Co de Phone Number [facility] [place] [address] * (ABNORMAL) BLOOD GAS 2 ARTERIAL (09/21/2016 [...] [facility] Temp Art 37.0 Celsius [facility] Blood specimen (specimen) 09/21/2016 9:10 AM EST 09/21/2016 9:10 AM EST Alirio Esparza MD POINT OF CARE TEST ORDERABLES [facility] [place] [address] * Surgical Pathology Report (09/21/2016 9:09 AM EST) Final Diagnosis [id number] ?Location: 3T The signing pathologist has (i) [...] AM EST Alirio Esparza MD PATHOLOGY/[place] [address] * Specimen to Pathology (surgical or derm) (09/21/2016 9:09 AM EST) AP Specimen 09/21/2016 9:09 AM EST 09/21/2016 9:09 AM EST Narrative [facility] - 09/21/2016 9:09 AM EST Specimen requisition ordered. ??Separate Pathology report to follow Alirio Esparza MD PATHOLOGY/CYTOLOGY ORDERABLES [facility] [place] [address] * (ABNORMAL) BLOOD GAS 2 ARTERIAL (09/21/2016 [...] CARE TEST ORDERABLES [facility] [place] [address] * (ABNORMAL) BLOOD GAS 2 ARTERIAL (09/21/2016 [...] [facility] FIO2 Art 95 % [facility] Flow Art 1.1 LPM [facility] PF Ratio Art 298 [facility] Temp Art 35.6 Celsius [facility] Blood specimen (specimen) 09/21/2016 8:18 AM EST 09/21/2016 8:18 AM EST Alirio Esparza MD POINT OF CARE TEST ORDERABLES [facility] [place] [address] * Prepare RBC (09/21/2016 7:05 AM EST) Dispensed? Yes [facility] Blood specimen (specimen) 09/21/2016 7:05 AM EST 09/21/2016 7:02 AM EST Alirio Esparza MD BLOOD BANK PRODUCT ORDERABLES Performing Organization Address City/[facility]/ZIP Co de Phone Number [facility] [place] [address] * POCT Glucose (09/21/2016 6:42 AM EST) Glucose, POC 104 65 - 199 mg/dL [facility] Comment: Supplemental ranges: <140 mg/dL before meals <180 mg/dL all other times of the day Blood specimen (specimen) 09/21/2016 6:42 AM EST 09/21/2016 6:42 AM EST Alirio Esparza MD POINT [place] [address] documented in this encounter Visit Diagnoses Not [...] dose on Wed09/21/16 at 1230, Until Discontinued, [place] teeth, Routine Given 09/25/2016 9:40 AM EST [...] Provider: Alie Whitfield RN)0551 (Given - Provider: Aile Whitfield RN)1150 (Given - Provider: Marek Barnes [...] dose on Wed09/21/16 at 1230, Until Discontinued, [place] teeth, Routine 0900 (Not Given - Provider: [...] , Routine 08 (See Alternative - Provider: lEsa Miguel RN) 08 (See Alternative - Provider: [...] Alie Whitfield RN) 0300 (Given - Provider: Aile Whitfield RN - Comment: given earlier in [...] Routine documented in this encounter Care Teams Bindery Operator Relationship Specialty Start Date End Date Deborah Quiroga APRN PCP - General Family Medicine 03/24/16 02/04/23 documented as of this encounter
--- OUTSIDE RECORDS SUMMARY | 2024-05-09 15:24 | XMS_ITS | Encounter Summary ---
[place] [address] Care Team Providers Care Bootmaker Hand Name Role Phone Junaid Deborah Shields APRN Primary Care Provider [phone] Reason for Visit * Auth/Cert Specialty Diagnoses / Procedures Referred By Crispin t Referred To Contact Diagnoses Aortic stenosis Procedures PRO REPLACE AORT VALV, PROSTH VALV @REPLACE AORTIC VALVE, OPEN, W\CPB, W\PROSTHETIC VALVE (WRVU 41.32) Referral ID Status Reason Start Date Expiration Date Visits Re quested Visits Authorized [id number] 1 1 Encounter Details Date Type Department Care Team (Late st Contact Info) Description 09/21/2016 7:25 AM EST Anesthesia [place] [address] Luis Enrique Quarles MD [facility] [place] [address] Henrik Cooper MD [facility] [place] [address] Anesthesia Record Procedure Summary Procedure Name Responsible [...] 0819 Sternotomy 0844 CV Bypass init 1009 Nailhead Setter 1014 An Clamp Remove 1031 CP Bypass [...] Tube 09/21/16 (#28 angled chest tube to [place]: left: pericardial); Left; 09/22/16; 1119 09/21/16 0000 by Toshia Alejandre RN 09/22/16 1119 by Vero Bonilla RN Chest Tube 09/21/16 (#28 straig ht chest tube to [place]; right: mediastinal'); Right; mediastinum; 09/22/16; 1118 09/21/16 0000 by Toshia Alejandre RN 09/22/16 1118 by Vero Bonilla RN (RETIRED) Peripheral IV Line - Single Lumen 09/21/16; 0648; metacarpal vein (top of hand), left; mzrj-efm-jmcmyd catheter system; 20 gauge; valdo Arteaga; 09/23/16; 1251 09/21/16 0648 by Bhumi Arteaga RN 09/23/16 1251 by Henrik Webb RN (RETIRED) Percutaneous Central Line - Single Lumen 09/21/16; 0730; internal jugular vein, right; Ultrasound Guidance; Yes; 9 Fr; kenenth; YUSRA; CVC Protocol Performed; no longer indicated; [...] Cooper MD - 09/21/2016 6:50 PM EST [facility] Department of Anesthesiology Post-procedure Note Patient: Purnima Thacker Procedure Summary Date Anesthesia Start Anesthesia Stop Room / Location 09/21/16 07 1152 [facility] OR 16 / [facility] MAIN OR Procedure Diagnosis Surgeon Responsible Provider @REPLACE AORTIC VALVE, OPEN, W\CPB, W\PROSTHETIC VALVE (WRVU 41.32) (N/A Chest); @AORTOPLASTY FOR SUPRAVALVULAR STENOSIS (WRVU 29.33) (N/A Chest) () Alirio Francisco MD Clark, Jeffrey A, MD All Anesthesia Providers: Anesthesiologist: Luis Enrique Quarles MD Deputy Bailiff: Henrik Cooper MD Last (1hr) Vitals: BP Temp 36.1 ??C (97 ??F) (09/21/16 1800) Pulse 79 (09/21/16 1800) Resp 11 (09/21/16 1800) SpO2 98 % (09/21/16 1800) Patient Location: [facility] Level of Consciousness: Sedated (Pharmacologic/Intentional) Pain Management: [...] [facility] Hematology Oncology [address] [place], [place] [id number] 05/12/2024 10:00 AM EDT Office Visit Hematology [place] [address] Markel Borjas MD [facility] [address] [place] [address] 03/01/2025 4:15 PM EDT Office Visit Dermatology at [place] [address] [place] [phone] Marek Bonilla MD [address] [place] [address] documented as of this encounter Visit Diagnoses [...] mg documented in this encounter Care Teams Bootmaker Hand Relationship Specialty Start Date End Date Deborah Quiroga APRN PCP - General Family Medicine 03/24/16 02/04/23 documented as of this encounter
--- OUTSIDE RECORDS SUMMARY | 2024-05-09 15:24 | XMS_ITS | Encounter Summary ---
Author Organization [facility] Address [facility] [place] [address] Care Team Providers Care Superintendent General Name Role Phone Deborah Quiroga APRN Primary Care Provider Encounter Details Date Type Department Care Team (Latest Contact Info) Description 10/14/2016 - 10/14/2016 11:59 PM EDT Hospital Encounter Radiology Library at [facility] [place] [phone] Alirio Esparza MD Pain Discharge Disposition: Home [...] 0.5 tablets by mouth daily. 10/03/2016 05/22/2023 oxyCODONE (ROXICODONE) 5 mg Tablet Take 1 [...] [facility] Hematology Oncology [address] [place] [address] 05/12/2024 10:00 AM EDT Office Visit Hematology [place] [address] Markel Borjas MD [facility] [address] HEMATOLOGY [place] [address] 03/01/2025 4:15 PM EDT Office Visit Dermatology at [place] [address] [place] [address] Marek Bonilla MD [address], [place] [address] documented as of this encounter Procedures Procedure Name Priority Date/Time Associated Diagnosis Comments FILM LIBRARY STORAGE ONLY DX CHEST Routine 10/14/2016 12:00 AM EDT Pain documented in this encounter Results * Film Library- Storage Only DX Chest (10/14/2016 12:00 AM EDT) Narrative [facility] - 10/14/2016 5:16 PM EDT This exam is for storage only and is auto-finalizing. Alirio Esparza MD IMG FILM LIBRARY OR DERABLES Performing Organization Address City/State/[facility] Co de Phone Number [place], [place] documented in this encounter Visit Diagnoses Diagnosis Pain Generalized pain Chronic idiopathic neutropenia Other neutropenia documented in this encounter Care Teams Superintendent General Relationship Specialty Start Date End Date Deborah Quiroga, POLE TESTER PCP - General Family Medicine 03/24/16 02/04/23 documented as of this encounter
--- OUTSIDE RECORDS SUMMARY | 2024-05-09 15:24 | XMS_ITS | Encounter Summary ---
[place] [address] Care Team Providers Care Medical Device Engineer Name Role Phone Ashley Quirogazac Shields APRN Primary Care Provider [phone] Reason for Visit * Reason Onset Date Comments Results 12/03/2016 Encounter Details Date Type Department Care Team (Late st Contact Info) Description 12/03/2016 Telephone Hematology [place] [address] Yudith Valentine, RN Results Social History Tobacco [...] EDT RN received call from Maddy at [facility] reporting critical WBC at 1.61, and ANC of 0.5. She will fax the full results to this office for audit reviewer notified DR Borjas of above results documented in this encounter Plan of Treatment Upcoming Encounters Date Type Department Care Team (Late st Contact Info) Description 05/12/2024 9:00 AM EDT Laboratory Appointment Lab at [facility] Hematology Oncology [address] [place] [address] 05/12/2024 10:00 AM EDT Office Visit Hematology [place] [address] Markel Borjas MD [facility] [address] [place] [address] 03/01/2025 4:15 PM EDT Office Visit Dermatology at [place] [address] [place] [address] Marek Bonilla MD [address] [place] [address] documented as of this encounter Visit Diagnoses Not on filedocumented in this encounter Care Teams Medical Device Engineer Relationship Specialty Start Date End Date Deborah Quiroga APRN PCP - General Family Medicine 03/24/16 02/04/23 documented as of this encounter
--- OUTSIDE RECORDS SUMMARY | 2024-05-09 15:24 | XMS_ITS | Encounter Summary ---
[place] [address] Care Team Providers Care Insurance Producer Name Role Phone Junaid, Deborah Shields APRN Primary Care Provider [phone] Encounter Details Date Type Department Care Team (Late st Contact Info) Description 10/20/2016 11:20 AM EDT Office Visit [place] [phone] Alirio Esparza MD S/P AVR Social History [...] all of her postoperative tests done at [facility]. Her echo shows a well-seated valve. Her EF, for some reason, was read as in the 45% to 50% range. She had a normal EF to start. I think that will need to be repeated at [facility]. She has no perivalve leak. Her mean [...] should continue to see Dr. Burrell, her rotational moulding operator at [facility]. cc: Dr. Burrell documented in this encounter Plan of Treatment Upcoming Encounters Date Type Department Care Team (Late st Contact Info) Description 05/12/2024 9:00 AM EDT Laboratory Appointment Lab at [facility] Hematology Oncology [address] [place] [address] 05/12/2024 10:00 AM EDT Office Visit Hematology [place] [address] Markel Borjas MD [facility] [place] [address] 03/01/2025 4:15 PM EDT Office Visit Dermatology at [place] [address] [place] [address] Marek Bonilla MD [address] [place] [address] documented as of this encounter Visit Diagnoses Diagnosis S/P AVR Heart valve replaced by other means Chronic idiopathic neutropenia Other neutropenia documented in this encounter Care Teams Insurance Producer Relationship Specialty Start Date End Date Deborah Quiroga APRN PCP - General Family Medicine 03/24/16 02/04/23 documented as of this encounter
--- OUTSIDE RECORDS SUMMARY | 2024-05-09 15:24 | XMS_ITS | Encounter Summary ---
Author Organization [facility] Address [facility] [place] [address] Care Team Providers Care Embedded Hardware Engineer Name Role Phone Deborah Quiroga APRN Primary Care Provider [phone] Encounter Details Date Type Department Care Team (Late st Contact Info) Description 12/04/2016 External Results Hematology [place] [phone] Teresa Dodson RN Social History Tobacco Use [...] [facility] Hematology Oncology [address] [place] [address] 05/12/2024 10:00 AM EDT Office Visit Hematology [place] [phone] Markel Borjas MD [facility] [place] [address] 03/01/2025 4:15 PM EDT Office Visit Dermatology at [address] [phone] Marek Bonilla MD [address], [place] [address] documented as of this encounter Procedures Procedure Name Priority Date/Time Associated Diagnosis Comments CBC (WITH DIFF) Routine 12/03/2016 11:35 AM EDT COMPREHENSIVE METABOLIC PANEL Routine 12/03/2016 11:35 AM EDT documented in this encounter Results * (ABNORMAL) Comprehensive metabolic panel (non-fasting) (12/03/2016 11:35 AM EDT) Glucose 85([facility]) Blood Urea Nitrogen 11([facility]) Creatinine 0.93(Exte rnal Lab) Sodium 140(Exter nal Lab) Potassium 4.2(Exter nal Lab) Chloride 104(Exter nal Lab) Calcium 10.0(Exte rnal Lab) Protein, Total 8.1(Exter nal Lab) Albumin 3.5(Exter nal Lab) Bilirubin, Total 0.25(Exte rnal Lab) Alkaline Phosphatase 96([facility]) Aspartate Aminotransferase 18([facility]) Alanine Aminotransferase 21([facility]) Blood specimen (specimen) 12/03/2016 11:35 AM EDT Historical Provider CHEMISTRY ORDERAB LES * (ABNORMAL) CBC (with Diff) (12/03/2016 11:35 AM EDT) White Blood Cell 1.61(EXTER NAL/ABN) 4.4 - 10.8 Hemoglobin 13.0(Exter nal Lab) Hematocrit 39.8(Exter nal Lab) Platelet 248([facility]) Neutrophil Absolute (ANC) - Automated 0.5(ELECTRONIC DIE MAKER AL/ABN) Blood specimen (specimen) 12/03/2016 11:35 AM EDT Historical Provider HEMATOLOGY ORDERA BLES documented in this encounter Visit Diagnoses Not on filedocumented in this encounter Care Teams Embedded Hardware Engineer Relationship Specialty Start Date End Date Deborah Quiroga, ANURAG PCP - General Family Medicine 03/24/16 02/04/23 documented as of this encounter
--- OUTSIDE RECORDS SUMMARY | 2024-05-09 15:24 | XMS_ITS | Encounter Summary ---
Author Organization [facility] Address [facility] [place] [address] Care Team Providers Care Planning Associate Name Role Phone Deborah Quiroga ANURAG Primary Care Provider [phone] Encounter Details Date Type Department Care Team (Late st Contact Info) Description 09/17/2016 External Results Hematology [place] [phone] Alexandrea Greenwood RN Neutropenia, unspecified type Social [...] [facility] Hematology Oncology [address] [place] [address] 05/12/2024 10:00 AM EDT Office Visit Hematology [place] [phone] Markel Borjas MD [facility] [place] [address] 03/01/2025 4:15 PM EDT Office Visit Dermatology at [address] [phone] Marek Bonilla MD [address], [place] [address] documented as of this encounter Procedures Procedure [...] neutropenia documented in this encounter Care Teams Planning Associate Relationship Specialty Start Date End Date Deborah Quiroga APRN PCP - General Family Medicine 03/24/16 02/04/23 documented as of this encounter
--- OUTSIDE RECORDS SUMMARY | 2024-05-09 15:24 | XMS_ITS | Encounter Summary ---
Author Organization [facility] [place] [address] Care Team Providers Care Hassock Maker Name Role Phone Ashley Quirogazac Shields APRN Primary Care Provider [phone] Reason for Referral * Consultation (Routine) - Specialty Diagnoses / Procedures Referred By Contact Referred To Contact Cardiac Rehabilitation Diagnoses S/P AVR Alirio Esparza MD [facility] DR CARDIOTHORACIC [place] [address] Cardiac Rehab, [address] [place] [address] Referral ID Status Reason Start Date Expiration Date V isits Requested Visits Authorized [id number] Consult, Test & Treat 09/25/2016 03/24/2017 36 36 Reason for Visit * Auth/Cert Specialty Diagnoses / Procedures Referred By Contkrystle t Referred To Contact Diagnoses Aortic stenosis Procedures PRO REPLACE AORT VALV, PROSTH VALV @REPLACE AORTIC VALVE, OPEN, W\CPB, W\PROSTHETIC VALVE (WRVU 41.32) Referral ID Status Reason Start Date Expiration Date Visits Re quested Visits Authorized [id number] 1 1 Encounter Details Date Type Department Care Team (Latest Contact Info) Description 09/21/2016 6:08 AM EST - 09/25/2016 4:33 PM EST Hospital Encounter [place] [id number] Alirio Esparza MD Aortic valve stenosis, unspecified [...] Patient Age: 61 y.o. Birthdate: 1955 Language: Uruguayan Race: White Ethnicity: Not nor Admit Date: 09/21/2016 Discharge Date: 09/25/2016 Attending Physician: Alirio Esparza MD Follow-up Recommendations for Providers: Please continue routine management of cardiovascular risk factors including blood pressure, lipids,glucose, etc. Please note any changes to medications. Patient to follow-up with PCP, Deborah Quiroga APRN, in 1-2 weeks. Patient to follow-up with Corrections Nurse, Dr. Antelmo Burrell, in two weeks. Patient to follow-up with Cardiac Surgery, Dr. Alirio Esparza, to be scheduled for before 10/19/2016, with CXR, EKG, and Echo. Inpatient Provider Contact Information: [facility] Section of Cardiac Surgery [facility] [address] FAX [phone] Discharge Diagnoses (Hospital Problems) Primary Diagnoses: Secondary [...] 41.32) performed by Alirio Esparza MD at [facility] MAIN OR ??? Pro aortoplas for supravalv sten N/A 09/21/2016 @AORTOPLASTY FOR SUPRAVALVULAR STENOSIS (WRVU 29.33) performed by Alirio Esparza MD at [facility] MAIN OR Prior To Admission Medications [...] Course: Purnima Thacker was admitted to [facility] on 09/21/2016 via the Same [...] Alirio Esparza and/or the Cardiac Surgery Physician Drivers' Cash Clerk Team may be reached at . Antibiotic prophylaxis: You will need to take antibiotics prior to many invasive tests and treatments, such as dental cleaning, which should be done every 6 months. Your primary care physician or your dentist can prescribe this medication. Please refer to the card with the Italian Heart Association Guidelines for more information. You have been provided with 3 copies of this card. Keep one for your self. Give one to your primary care physician and one to your dentist. Please refer to the Italian Heart Association Guidelines for more information. Good [...] Dr. Alirio Jones. You may use a [place] Track or treadmill but avoid any pulling [...] friends, go to a movie, go to quaker, etc. Heavy activities: No hunting, skiing, jogging, [...] should resume a low fat, low cholesterol, Italian Heart Association Diet. Driving: No driving until [...] the outpatient Phase 2 Cardiac Rehabilitation at [facility]. The patient agrees to a referral to this program. The referral will be sent at discharge and the patient should be contacted by the program within 1- 2 weeks from discharge. Future Appointments and Orders Future Appointments Provider Department Dept Phone 11/20/2016 11:30 AM Markel Borjas MD [facility] [phone] Future Orders Complete By Expires Echocardiogram Transthoracic([facility]) [NXZ515 Custom] 10/18/2016 (Approximate) 09/18/2017 Process Instructions: If the Echocardiogram is to be PERFORMED in a location other than [place]--STOP and order [id number], Echocardiogram South/External. Scheduling Instructions: Questions: Is a Bubble Study requested?: No Does the patient have Congenital Heart Disease?: No Does patient require sedation?: None GA rationale: Should this service be billed to the research sponsor?: EKG 12 Lead [EKG1 Custom] 10/18/2016 (Approximate) 09/25/2017 Process Instructions: Scheduling Instructions: Questions: Which location will this be performed?: [place] Is a rhythm strip needed?: No If EKG Reason is Pre-op Evaluation, indicate diagnosis for surgery.: Should this service be billed to the research sponsor?: XR Chest PA & Lateral (Generic) [[id number] 04945 Custom] 10/18/2016 (Approximate) 09/25/2017 Process Instructions: Scheduling Instructions: Questions: Where will study be performed?: [facility]- Radiology Portable exam?: No Reason for exam and clinical history: s/p AVReplacement, patch annuloplasty 1 month f/u Other pertinent information: Stat read required?: Date of injury if applicable: Requested Time: Referral to Cardiac Rehab [PDI346 Custom] As directed Process Instructions: If no progress note charted, please enter Clinical details in comments. Scheduling Instructions: Questions: My question or request is: s/p AVR. Cardiac rehab at [facility] Referral to Home Health - at DISCHARGE [TXD4821 CPT(R)] As directed Process Instructions: Scheduling Instructions: Comments: DOCUMENTATION FOR VNA SERVICES (INCLUDING THOSE PATIENTS WITH MEDICARE COVERAGE REQUIRING HOME VNA SERVICES AND/OR HOSPICE SERVICES) PATIENT'S LOCATION: Purnima Magalie Kirstie [address] [place] [phone] (home) No relevant phone numbers on file. Canoe Builder's Name: self In discussion with the attending physician, it is certified that this patient is under their care and that they, or a Nurse Practitioner, or Physician Drivers' Cash Clerk who is working directly with them, hada [...] for services as follows: HOME HEALTH AGENCY: [facility] PHONE: [phone] FAX: [phone] RN orders: Cardiopulmonary assessment, incisional assessment, assess [...] issues please call the Cardiac SurgeryOffice at [phone] FOR MEDICARE ONLY: In discussion with the [...] AFTER 09/30/16 Signed: Crispin Aranda PA-C 09/25/2016 [facility] Section of Cardiac Surgery [facility] [address] FAX [phone] Date: 09/25/2016 CC: ANURAG Alford Caryn E, APRN [address] [place] [address] documented in this encounter Discharge Instructions * [...] Alirio Esparza and/or the Cardiac Surgery Physician Drivers' Cash Clerk Team may be reached at . Antibiotic prophylaxis: You will need to take antibiotics prior to many invasive tests and treatments, such as dental cleaning, which should be done every 6 months. Your primary care physician or your dentist can prescribe this medication. Please refer to the card with the Italian Heart Association Guidelines for more information. You have been provided with 3 copies of this card. Keep one for your self. Give one to your primary care physician and one to your dentist. Please refer to the Italian Heart Association Guidelines for more information. Good [...] Dr. Alirio Jones. You may use a Denhoff Track or treadmill but avoid any pulling [...] friends, go to a movie, go to quaker, etc. Heavy activities: No hunting, skiing, jogging, [...] should resume a low fat, low cholesterol, Italian Heart Association Diet. Driving: No driving until [...] the outpatient Phase 2 Cardiac Rehabilitation at [facility]. The patient agrees to [...] PM EST Cardiac Surgery Progress Note: ID: [id number] S/p AVR, patch aortoplasty POD#2. PMH of [...] Gas) No results found for: PHART, PO2ART, EBW5VNK Assessment/Plan: TPW out this am. (+) BM. [...] Signed: Crispin Aranda PA-C 09/24/2016 Team pager: [phone]; [phone] after 5pm [facility] Section of Cardiac Surgery * Leonor Henson, LADIES ATTENDANT - 09/23/2016 10:48 AM EST Cardiac Surgery Progress Note: ID: [id number] s/p AVR, patch aortoplasty POD#2. PMH of [...] Gas) No results found for: PHART, PO2ART, SBH7PTL Assessment/Plan: s/p AVR, patch aortoplasty POD#2. PMH of Neutropenia, HLD, HTN, Depression, obesity, . Transferred from [facility] yesterday and doing well. Pathway. Will [...] on rounds. Signed: Leonor Henson APRN [facility] Section of Cardiac Surgery Date: 09/23/2016 * Nico Palacios PA - 09/22/2016 9:56 AM EST Cardiac Surgery Progress Note: ID: [id number] s/p AVR, patch aortoplasty POD#1. PMH of [...] NT, ND, soft. Ext: Moves all extremities. [place], well perfused. Incisions: C/D/I Tubes/Lines/Drains: PIV, leanna, [...] Surgeon on rounds. Signed: EKATERINA KIM [facility] Section of Cardiac Surgery Date: [...] with outpatient services Lalitha Cohen SPTA Pager: [phone] Inpatient Physical Therapy Patient status, treatment interventions, and goals discussed with student. I am in agreement with all details and associated flowsheet rows as documented and was present for all aspects of the patient treatment session. Nerykatrina Jaramillo, [facility] Pager [phone] Problem: Acute Rehab Services Goal & Intervention Plan Goal: Bed Mobility Goal Stand Alone Therapy Goal Outcome: Ongoing (Interventions Implemented as Appropriate) 09/22/16 16109/25/16 09 Bed Mobility Goal Bed Mobility Goal, Time to Achieve 4 days -- Bed Mobility Goal, Activity Type scoot/bridge;supine to sit/sit to supine -- Bed Mobility Goal, [place] Level independent -- Bed Mobility Goal, Additional [...] Achieve 4 days -- Gait Training Goal, [place] Level independent -- Gait Training Goal, Distance [...] assist, home with home health Lalitha Cohen [facility] Pager: [phone] Inpatient Physical Therapy Patient status, treatment interventions, and goals discussed with student. I am in agreement with all details and associated flowsheet rows as documented and was present for all aspects of the patient treatment session. Nery Jaramillo, [facility] Pager [phone] Problem: Acute Rehab Services Goal & Intervention Plan Goal: Bed Mobility Goal Stand Alone Therapy Goal Outcome: Ongoing (Interventions Implemented as Appropriate) 09/22/16 16109/23/16 1412 Bed Mobility Goal Bed Mobility Goal, Time to Achieve 4 days -- Bed Mobility Goal, Activity Type scoot/bridge;supine to sit/sit to supine -- Bed Mobility Goal, [place] Level independent -- Bed Mobility Goal, Additional [...] Achieve 4 days -- Gait Training Goal, [place] Level independent -- Gait Training Goal, Distance [...] days -- Transfer Training Goal, Activity Type bsk-na-hgate/bnjlg-ed-wxv;zxb-zz-ohzdg/vrhlh-cm-uxg -- Transfer Train Goal, [place] Level independent -- Transfer Training Goal, Additional Goal abides sternal precautions -- Transfer Training Goal, Outcome -- goal met * Consult Note - Jana Crenshaw RN - 09/23/2016 9:41 AM EST [facility] Purnima Thacker was seen today regarding participation in the outpatient Phase 2 Cardiac Rehabilitation at [facility]. The patient agrees to [...] Another Service: (cardiac rehab) NICOLE HERNANDEZ, PT Pager:[phone] Inpatient Physical Therapy Problem: Acute Rehab Services Goal & Intervention Plan Goal: Bed Mobility Goal Stand Alone Therapy Goal Outcome: Ongoing (Interventions Implemented as Appropriate) 09/22/16 1611 Bed Mobility Goal Bed Mobility Goal, Time to Achieve 4 days Bed Mobility Goal, Activity Type scoot/bridge;supine to sit/sit to supine Bed Mobility Goal, [place] Level independent Bed Mobility Goal, Additional Goal able to abide sternal precautions during transfers Goal: Gait Training Goal Stand Alone Therapy Goal Outcome: Ongoing (Interventions Implemented as Appropriate) 09/22/16 1611 Gait Training Goal Gait Training Goal, Date Established 09/22/16 Gait Training Goal, Time to Achieve 4 days Gait Training Goal, [place] Level independent Gait Training Goal, Distance to Achieve ascend and descends 2 steps independently Goal: Goal Transfer Training Stand Alone Therapy Goal Outcome: Ongoing (Interventions Implemented as Appropriate) 09/22/16 1611 Goal Transfer Training Transfer Training Goal, Time to Achieve 4 days Transfer Training Goal, Activity Type eor-sr-vfjmv/geafb-ym-hgv;mbw-sg-jglpe/htxkr-jw-xhh Transfer Train Goal, [place] Level independent Transfer Training Goal, Additional Goal [...] of completing AD's at home, chooses her [id number]-xl-hqa, Martha Thacker (home) for her [facility], 2nd choice in friend, Nitesh Leroy [place], [place] Current Coping/Education/Information Needs: patient sitting up [...] who live close by, [place], and her jmsnuj-zz-frg Martha Thacker who she has chosen to be her DPOAH. Also has a friend Nitesh Leroy who lives in [place], [place], also her DPOAH choice. Behavioral Health History: none on file in e[facility] Substance Use/Abuse: none on file in eDH Other Pertinent/Service Specific Information: none Health/Prescription Coverage: Primary Insurance: [employer] Secondary Insurance: none Prescription Coverage: yes, per patient no issues Preferred Pharmacy: ?? Other: none Primary Care Provider: Deborah Quiroga, LADIES ATTENDANT [phone] Patient/Caregiver Goals of Treatment: per medical team recommendations at discharge for CT surgery Potential Needs for Transition of Care: Rehab/SNF: TBD Home Health: TBD DME: no Dialysis: no Community Resources: non3 Transportation: ride home with a friend Other: none Anticipated Barriers to Discharge/Special Considerations: none anticipated at this time Plan: patient will need VNA services at discharge. The patient/accounts payable representative has been provided a list of Home Health Agencies/DME vendors which servetheir preferred geographic area. A letter describing our affiliations was reviewed with them and they were educated about their right to choose where referrals are placed. Patient requests referral to: [facility]. PHONE: [phone] FAX: [phone] Expected date of discharge: Fri/Sat? CM called VNA to confirm referral, talked with VALDO Bunn/intake who stated she was familiar w/patient & would monitor her progress through curaspan. Referral routed to the Contract Specialist for matching with agency/vendor and to provide any required information. A member of the Care Management team will continue to monitor progress, follow for continuity of care and assist with transition of care planning. Amanda Moreno RN Pager: [phone] * Op Note - Alirio Esparza MD - 09/21/2016 12:53 PM EST 09/23/2016 Purnima Thacker 1955 [id number] Preoperative Diagnosis: Symptomatic aortic stenosis Postoperative Diagnosis: Symptomatic aortic stenosis Procedure: Aortic valve replacement: Bovine Pericardial 25 mm Surgeon: Alirio Esparza M.D. Drivers' Cash Clerk: Philip BALL Anesthesia: General endotracheal anesthesia Drains: [...] Operative Note Patient Name: Purnima Thacker : [id number] MR#: [id number] Case Date: 09/21/2016 Surgeon: Surgeon(s) and Role: * Alirio Esparza MD - Primary * Nico Palacios PA - Physician Drivers' Cash Clerk Preoperative diagnosis: Postoperative diagnosis: Procedure(s) (LRB): @REPLACE [facility] [address] [place] [address] 05/12/2024 10:00 AM EDT Office Visit [place] [address] Markel Borjas MD [facility] DR HEMATOLOGY [place] [address] 03/01/2025 4:15 PM EDT Office Visit Dermatology at [address] [place] [address] Marek Bonilla MD [address], [place] [address] Scheduled Orders Name Type Priority Associated Diagnoses [...] IMPLANTABLE DEVICES SCAN 09/26/2016 12:00 AM EST SCIENTIFIC LABORATORY SUPERVISOR SCAN 09/26/2016 12:00 AM EST POTASSIUM [...] SCAN EXT O RDR/RSLT * SCAN DOC: SCIENTIFIC LABORATORY SUPERVISOR (09/26/2016 12:00 AM EST) Anatomical Region Laterality Modality Other Narrative 09/26/2016 12:00 AM EST Ordered by an unspecified provider. Scanning Provider MEDIA MGR SCAN EXT O RDR/RSLT * Potassium (09/25/2016 4:32 AM EST) Pathologist [facility] Potassium 4.4 3.5 - 5.0 mmol/L [facility] [...] CHEMISTRY ORDERABLE S [facility] [place] [address] * (ABNORMAL) Differential, Automated (09/24/2016 9:56 AM EST) Neutrophil % 76.8 % [facility] [...] 0.4 x10(3)/[facility] LABORATORY Basophil % 0.2 % [facility] Baso Absolute 0.0 0.0 - 0.1 x10(3)/[facility] LABORATORY Immature Gran % 2.90 % [facility] Comment: Immature granulocytes(IG's)percentage and absolute count will include metamyelocytes, myelocytes, and promyelocytes. Blood smears from CBCs yielding IG's will be scanned manually for concordance. If this scan disagrees with the automated IG or if promyelocytes are noted, a manual differential will be performed. Immature Gran Absolute 0.29(H) 0.00 - 0.04 x10(3)/[facility] LABORATORY Blood specimen (specimen) 09/24/2016 9:56 AM EST 09/24/2016 10:04 AM EST Narrative Resulting Agency Comment Spec In Lab Alirio Esparza MD HEMATOLOGY ORDERABL ES [facility] [place] [address] * (ABNORMAL) Hemogram (09/24/2016 9:56 AM EST) White Blood Cell 10.1(H) 4.0 - 9.5 x10(3)/[facility] LABORATORY Red Blood Cell 2.87(L) 4.00 - 5.21 x10(6)/[facility] [...] HEMATOLOGY ORDERABL ES [facility] [place] [id number] * (ABNORMAL) Basic Metabolic Panel (non-fasting) (09/24/2016 [...] were not validated at [facility]. Results from pediatric patients should be interpreted [...] Est Glomerular Filtration Rate >60 >=60 [facility] Comment: [...] the following links into your internet browser. [email or web address] Blood specimen (specimen) 09/24/2016 9:56 AM EST 09/24/2016 10:04 AM EST Narrative Resulting Agency Comment Spec In Lab Alirio Esparza MD CHEMISTRY ORDERABLE S [facility] [place] [address] * XR Chest PA & Lateral (Generic) [...] CHEMISTRY ORDERABLE S [facility] [place] [address] * POCT Glucose (09/22/2016 8:17 AM EST) Glucose, POC 131 65 - 199 mg/dL [facility] Comment: Supplemental ranges: <140 mg/dL before meals <180 mg/dL all other times of the day Blood specimen (specimen) 09/22/2016 8:17 AM EST 09/22/2016 8:17 AM EST Narrative Authorizing Provider Result Slade Esparza MD POINT OF CARE TEST ORDERABLES [facility] [place] [address] * POCT Glucose (09/22/2016 4:01 AM EST) [facility] Glucose, POC 135 65 - 199 mg/dL [facility] Comment: Supplemental ranges: <140 mg/dL before meals <180 mg/dL all other times of the day Blood specimen (specimen) 09/22/2016 4:01 AM EST 09/22/2016 4:01 AM EST Alirio Esparza MD POINT OF CARE TEST ORDERABLES Performing Organization Address [facility] Co de Phone Number [facility] [place] [address] * Scan, Peripheral Blood (09/22/2016 4:00 AM EST) [facility] Plat estimate Normal [facility] RBC Morphology Abnormal [facility] Macrocyte 1-5 /HPF [facility] Plat, Giant Less than 1 /HPF [facility] Blood specimen (specimen) 09/22/2016 4:00 AM EST 09/22/2016 4:34 AM EST Narrative Resulting Agency Comment Spec In Lab Alirio Esparza MD HEMATOLOGY ORDERABL ES Performing Organization Address [facility] Co de Phone Number [facility] [place] [address] * Electrolytes panel (09/22/2016 4:00 AM EST) [facility] Sodium 145 135 - 145 [...] CHEMISTRY ORDERABLE S [facility] [place] [address] * (ABNORMAL) Differential, Automated (09/22/2016 4:00 AM EST) Neutrophil % 70.9 % [facility] Neutrophil Absolute 5.33 1.70 - 6.10 x10(3)/ L [facility] Lymph % 9.1 % [facility] Lymphocytes Abs 0.7(L) 0.9 - 3.2 x10(3)/[facility] LABORATORY Monocyte % 18.0 % [facility] Monocyte Abs 1.4(H) 0.3 - 0.9 x10(3)/ L [facility] Eos % 0.0 % [facility] Eosinophils Abs 0.0 0.0 - 0.4 x10(3)/[facility] LABORATORY Basophil % 0.1 % [facility] [...] MD HEMATOLOGY ORDERABL ES Performing Organization Address City/[facility]/ZIP Co de Phone Number [facility] [place] [address] * (ABNORMAL) Hemogram (09/22/2016 4:00 AM EST) [...] HEMATOLOGY ORDERABL ES [facility] [place] [address] * (ABNORMAL) Cardiac Enzymes (09/22/2016 4:00 AM EST) Pathologist [facility] Troponin-T 0.13(H) <=0.03 ng/mL [facility] Comment: 0.03 ng/mL: Represents the 99th percentile upper reference limit for normals. >0.03 ng/mL: Elevated cardiac troponin T level indicative of myocardial damage. Diagnosis of acute, evolving or recent [place] requires a typical rise and gradual fall [...] consensus document of the Joint Society of Cardiology/Italian College of Cardiology Committee for the redefinition of myocardial infarction. ??Journal of the [place] College of Cardiology 2000; 36: 959-969] Creatine Kinase 338(H) 0 - 160 unit/L [facility] Blood specimen (specimen) 09/22/2016 4:00 AM EST 09/22/2016 4:34 AM EST Narrative Resulting Agency Comment Spec In Lab Alirio Esparza MD CHEMISTRY ORDERABLE S [facility] [place] [address] * (ABNORMAL) Glucose, fasting (09/22/2016 4:00 AM EST) Pathologist [facility] Glucose Fasting 137(H) 65 - 99 mg/dL [...] of Diabetes Mellitus, Position Statement from the [place] Diabetes Association. ??Diabetes Care, Volume 33, Supplement 1, Aug 2009 Blood specimen (specimen) 09/22/2016 4:00 AM EST 09/22/2016 4:34 AM EST Narrative Resulting Agency Comment Spec In Lab Alirio Esparza MD CHEMISTRY ORDERABLE S Performing Organization Address [facility] Co de Phone Number [facility] [place] [address] * (ABNORMAL) Creatinine (09/22/2016 4:00 AM EST) [facility] Signature Creatinine 0.69(L) 0.70 - 1.20 mg/dL [facility] Comment: Please note that the pediatric reference intervals supplied above were not validated at [facility]. Results from pediatric patients should be interpreted in conjunction to the patient's age, height and muscle mass. Est Glomerular Filtration Rate >60 >=60 [facility] Comment: [...] the following links into your internet browser. [email or web address] Blood specimen (specimen) 09/22/2016 4:00 AM EST 09/22/2016 4:34 AM EST Narrative Resulting Agency Comment Spec In Lab Alirio Esparza MD CHEMISTRY ORDERABLE S Performing Organization Address [facility] Co de Phone Number [facility] [place] [address] * BUN (09/22/2016 4:00 AM EST) Blood Urea Nitrogen 10 8 - 18 mg/dL [facility] Blood specimen (specimen) 09/22/2016 4:00 AM EST 09/22/2016 4:34 AM EST Narrative Resulting Agency Comment Spec In Lab Alirio Esparza MD CHEMISTRY ORDERABLE S Performing Organization Address City/[facility]/ZIP Co de Phone Number [facility] [place] [address] * POCT Glucose (09/21/2016 9:59 PM EST) Glucose, POC 146 65 - 199 mg/dL [facility] Comment: Supplemental ranges: <140 mg/dL before meals <180 mg/dL all other times of the day Blood specimen (specimen) 09/21/2016 9:59 PM EST 09/21/2016 9:59 PM EST Alirio Esparza MD POINT OF CARE TEST ORDERABLES Performing Organization Address [facility]/ZIP Co de Phone Number [facility] [place] [address] * POCT Glucose (09/21/2016 7:26 PM EST) Glucose, POC 152 65 - 199 mg/dL [facility] Comment: Supplemental ranges: <140 mg/dL before meals <180 mg/dL all other times of the day Blood specimen (specimen) 09/21/2016 7:26 PM EST 09/21/2016 7:26 PM EST Alirio Esparza MD POINT OF CARE TEST ORDERABLES Performing Organization Address [facility]/ZIP Co de Phone Number [facility] [place] [address] * POCT Glucose (09/21/2016 6:00 PM EST) Glucose, POC 146 65 - 199 mg/dL [facility] Comment: Supplemental ranges: <140 mg/dL before meals <180 mg/dL all other times of the day Blood specimen (specimen) 09/21/2016 6:00 PM EST 09/21/2016 6:00 PM EST Alirio Esparza MD POINT OF CARE TEST ORDERABLES [facility] [place] [address] * (ABNORMAL) BLOOD GAS 2 ARTERIAL (09/21/2016 [...] [facility] PF Ratio Art 270 [facility] Blood specimen (specimen) 09/21/2016 4:42 PM EST 09/21/2016 4:42 PM EST Alirio Esparza MD POINT OF CARE TEST ORDERABLES Performing Organization Address [facility] Co de Phone Number [facility] [place] [address] * POCT Glucose (09/21/2016 4:07 PM EST) Glucose, POC 150 65 - 199 mg/dL [facility] Comment: Supplemental ranges: <140 mg/dL before meals <180 mg/dL all other times of the day Blood specimen (specimen) 09/21/2016 4:07 PM EST 09/21/2016 4:07 PM EST Alirio Esparza MD POINT OF CARE TEST ORDERABLES Performing Organization Address [facility] Co de Phone Number [facility] [place] [address] * (ABNORMAL) Hemoglobin (09/21/2016 4:05 PM EST) Hemoglobin 9.9(L) 11.7 - 15.5 gm/dL [facility] Blood specimen (specimen) 09/21/2016 4:05 PM EST 09/21/2016 4:20 PM EST Narrative Resulting Agency Comment Spec In Lab Alirio Esparza MD HEMATOLOGY ORDERABL ES Performing Organization Address [facility] Co de Phone Number [facility] [place] [address] * Potassium (09/21/2016 4:05 PM EST) Potassium [...] MD CHEMISTRY ORDERABLE S Performing Organization Address [facility]/ZIP Co de Phone Number [facility] [place] [address] * POCT Glucose (09/21/2016 2:52 PM EST) Glucose, POC 117 65 - 199 mg/dL [facility] Comment: Supplemental ranges: <140 mg/dL before meals <180 mg/dL all other times of the day Blood specimen (specimen) 09/21/2016 2:52 PM EST 09/21/2016 2:52 PM EST Alirio Esparza MD POINT OF CARE TEST ORDERABLES Performing Organization Address [facility]/ZIP Co de Phone Number [facility] [place] [address] * POCT Glucose (09/21/2016 1:51 PM EST) Glucose, POC 108 65 - 199 mg/dL [facility] Comment: Supplemental ranges: <140 mg/dL before meals <180 mg/dL all other times of the day Blood specimen (specimen) 09/21/2016 1:51 PM EST 09/21/2016 1:51 PM EST Alirio Esparza MD POINT OF CARE TEST ORDERABLES Performing Organization Address [facility]/ZIP Co de Phone Number [facility] [place] [address] * POCT Glucose (09/21/2016 12:54 PM EST) Glucose, POC 128 65 - 199 mg/dL [facility] Comment: Supplemental ranges: <140 mg/dL before meals <180 mg/dL all other times of the day Blood specimen (specimen) 09/21/2016 12:54 PM EST 09/21/2016 12:54 PM EST Alirio Esparza MD POINT OF CARE TEST ORDERABLES [facility] [place] [address] * EKG 12 Lead (09/21/2016 12:26 PM EST) Ventricular rate 87 BPM MUSE SYSTEM Atrial Rate 87 BPM MUSE SYSTEM P-R Interval 256 ms MUSE SYSTEM QRS Duration 90 ms MUSE SYSTEM Q-T Interval 406 ms MUSE SYSTEM QTC Calculated (Bezet) 488 ms MUSE SYSTEM Calculated P [place] 24 degrees MUSE SYSTEM Calculated R [place] 21 degrees MUSE SYSTEM Calculated T [place] -5 degrees MUSE SYSTEM INTERPRETATION Sinus rhythm with 1st degree A-V block Nonspecific T wave abnormality Prolonged QT Abnormal ECG When compared with ECG of 19-MAY-2016 11:43, NE interval has increased T wave inversion now evident in inferior and midanterior leads Confirmed by MD FARNKLYN, MARLEN ([id number]) on 09/21/2016 1:40:59 PM MUSE [...] course of the esophagus and below the [id number]-ma-[id number]. There is a right IJ PA catheter [...] the course of theesophagus and below the [id number]-om-aogm. There is a right IJ PA catheter [...] [facility] PF Ratio Art 356 [facility] Blood specimen (specimen) 09/21/2016 12:20 PM EST 09/21/2016 12:20 PM EST Alirio Esparza MD POINT OF CARE TEST ORDERABLES [facility] [place] [address] * (ABNORMAL) BLOOD GAS 2 ARTERIAL (09/21/2016 [...] [facility] PF Ratio Art 313 [facility] Temp Art 36.7 Celsius [facility] Blood specimen (specimen) 09/21/2016 10:54 AM EST 09/21/2016 10:54 AM EST Alirio Esparza MD POINT OF CARE TEST ORDERABLES [facility] [place] [address] * Thrombin time (09/21/2016 10:50 AM EST) [...] MD HEMATOLOGY ORDERABLE S Performing Organization Address [facility] Co de Phone Number [facility] [place] [address] * Fibrinogen (09/21/2016 10:50 AM EST) Fibrinogen [...] HEMATOLOGY ORDERABLE S [facility] [place] [address] * APTT (09/21/2016 10:50 AM EST) Partial Thromboplastin Time 32 25 - 35 sec [facility] Comment: The recommended therapeutic range for full dose, unfractionated heparin at [facility] is 80 ? 114 seconds. The use of the anti-Xa (heparin) level rather than the PTT is recommended for monitoring anticoagulation intensity in critically ill patients receiving unfractionated heparin by continuous IV infusion. Blood specimen (specimen) 09/21/2016 10:50 AM EST 09/21/2016 10:56 AM EST Narrative Resulting Agency Comment Spec In Lab Luis Enrique Quarles MD HEMATOLOGY ORDERABLE S Performing Organization Address [facility] de Phone Number [facility] [place] [address] * (ABNORMAL) Prothrombin Time (09/21/2016 10:50 AM [...] MD HEMATOLOGY ORDERABLE S Performing Organization Address [facility] de Phone Number [facility] [place] [address] * (ABNORMAL) Hemogram (09/21/2016 10:50 AM EST) [...] MD HEMATOLOGY ORDERABLE S Performing Organization Address [facility] Co de Phone Number [facility] [place] [address] * Prepare Platelets, Apheresis (09/21/2016 10:30 AM EST) Pathologist [facility] [place] Dispensed? Yes [facility] Blood specimen (specimen) 09/21/2016 10:30 AM EST 09/21/2016 10:28 AM EST Alirio Esparza MD BLOOD BANK PRODUCT ORDERABLES Performing Organization Address [facility]/ZIP Co de Phone Number [facility] [place] [address] * (ABNORMAL) BLOOD GAS 2 ARTERIAL (09/21/2016 10:05 AM EST) Pathologist [facility] pH, Arterial 7.33(L) 7.35 - 7.45 [facility] PCO2, Arterial 54(Critic al) 35 - 45 mmHg [facility] Comment:Noted by instruments sales representative. PO2, Arterial 218(H) 85 - 104 mmHg [...] [facility] Comment: Noted by instruments sales representative. Please note: Patients with WBC >100,000 may [...] CARE TEST ORDERABLES [facility] [place] [address] * (ABNORMAL) BLOOD GAS 2 ARTERIAL (09/21/2016 9:44 AM EST) pH, Arterial 7.22(Criti gabrielle) 7.35 - 7.45 [facility] Comment:Noted by instruments sales representative. PCO2, Arterial 70(Critica l) 35 - 45 mmHg [facility] Comment:Noted by instruments sales representative. PO2, Arterial 224(H) 85 - 104 mmHg [...] OF CARE TEST ORDERABLES Performing Organization Address [facility] de Phone Number [facility] [place] [address] * (ABNORMAL) Hemoglobin (09/21/2016 9:42 AM EST) Hemoglobin 7.2(L) 11.7 - 15.5 gm/dL [facility] Blood specimen (specimen) 09/21/2016 9:42 AM EST 09/21/2016 9:51 AM EST Narrative Resulting Agency Comment Spec In Lab Alirio Esparza MD HEMATOLOGY ORDERABL ES Performing Organization Address [facility] Phone Number [facility] [place] [address] * Platelet count (09/21/2016 9:42 AM EST) Platelet 159 145 - 357 x10(3)/mc L [facility] Immature Plt % 1.6 0.0 - 7.4 % [facility] Comment: Limitation of the Immature Platelet Fraction (IPF)-May be less reliable when the platelet count is less than 55o528/uL due to statistical imprecision. The IPF value [...] in a decreased state of production. References: [employer] The Clinical Value of the Immature Platelet Fraction (IPF) in Cell Recovery Document Number 10-1143 12/2010 [employer] The Role of the Immature Platelet Fraction (IPF) in the Differential Diagnosis of Thrombocytopenia, Document MKT-[id number] V05/07/15 P012/13 Blood specimen (specimen) 09/21/2016 9:42 AM EST 09/21/2016 9:51 AM EST Narrative Resulting Agency Comment Spec In Lab Alirio Esparza MD HEMATOLOGY ORDERABL ES Performing Organization Address [facility] Co de Phone Number [facility] [place] [address] * (ABNORMAL) Hematocrit (09/21/2016 9:42 AM EST) [...] ES Performing Organization Address [facility] Co de Phone Number [facility] [place] [address] * Fibrinogen (09/21/2016 9:42 AM EST) Fibrinogen [...] HEMATOLOGY ORDERABL ES [facility] [place] [address] * (ABNORMAL) BLOOD GAS 2 ARTERIAL (09/21/2016 [...] CARE TEST ORDERABLES [facility] [place] [address] * Surgical Pathology Report (09/21/2016 9:09 AM EST) Final Diagnosis [id number] ?Location: 3T The signing pathologist has (i) [...] Esparza MD PATHOLOGY/CYTOLOGY ORDERABLES Performing Organization Address [facility]/[place] [address] * Specimen to Pathology (surgical or derm) (09/21/2016 9:09 AM EST) AP Specimen 09/21/2016 9:09 AM EST 09/21/2016 9:09 AM EST Narrative [facility] - 09/21/2016 9:09 AM EST Specimen requisition ordered. ??Separate Pathology report to follow Alirio Esparza MD PATHOLOGY/CYTOLOGY ORDERABLES Performing Organization Address [facility] [place] [address] * (ABNORMAL) BLOOD GAS 2 ARTERIAL (09/21/2016 [...] OF CARE TEST ORDERABLES Performing Organization Address City/State/[facility] Co de Phone Number [facility] [place] [address] * (ABNORMAL) BLOOD GAS 2 ARTERIAL (09/21/2016 [...] [facility] PF Ratio Art 298 [facility] Temp Art 35.6 Celsius [facility] Blood specimen (specimen) 09/21/2016 8:18 AM EST 09/21/2016 8:18 AM EST Alirio Esparza MD POINT OF CARE TEST ORDERABLES [facility] [place] [address] * Prepare RBC (09/21/2016 7:05 AM EST) Dispensed? Yes [facility] Blood specimen (specimen) 09/21/2016 7:05 AM EST 09/21/2016 7:02 AM EST Alirio Esparza MD BLOOD BANK PRODUCT ORDERABLES [facility] [place] [address] * POCT Glucose (09/21/2016 6:42 AM EST) Glucose, POC 104 65 - 199 mg/dL [facility] Comment: Supplemental ranges: <140 mg/dL before meals <180 mg/dL all other times of the day Blood specimen (specimen) 09/21/2016 6:42 AM EST 09/21/2016 6:42 AM EST Alirio Esparza MD POINT OF CARE TEST ORDERABLES Performing Organization Address [facility] Co de Phone Number [facility] [place] [address] documented in this encounter Visit Diagnoses Diagnosis Aortic valve stenosis, unspecified etiology S/P AVR Heart valve replaced by other means Aortic stenosis Aortic valve disorders Chronic idiopathic neutropenia [...] dose on Wed09/21/16 at 1230, Until Discontinued, [place] teeth, Routine Given 09/25/2016 9:40 AM EST [...] if phenyleprine and/or vasopressin ineffective.Call pager # [phone] if initiated., Routine Rate/Dose Change 09/21/2016 2:27 [...] 2.0 L/min/M2. Maximum volume 2 L. Call housekeeper nanny for additional fluid orders: pager #[phone]. Rate/Dose Verify 09/22/2016 10:00 AM EST 10 mL/hr 10 mL/hr Rate/Dose Change 09/22/2016 8:12 AM EST 10 mL/hr 10 mL/h r Rate/Dose Verify 09/21/2016 2:00 PM EST 100 mL/hr 100 mL/ hr sodium chloride 0.9% infusion 10-30 mL/hr, Intravenous, DAILY PRN, Starting on Wed09/21/16 at 1206, Until Wed09/22/16 at 1036, Side port TKO rate, per [facility] nursing protocol. Rate/Dose Verify 09/21/2016 5:00 PM EST 30 mL/hr 30 mL/hr Rate/Dose Verify 09/21/2016 4:00 PM EST 30 mL/hr 30 mL/h r Rate/Dose Verify 09/21/2016 3:00 PM EST 30 mL/hr 30 mL/h r sodium chloride 0.9% infusion 10-30 mL/hr, Intravenous, DAILY PRN, Starting on Wed09/21/16 at 1206, Until Wed09/22/16 at 1036, Side port TKO rate, per [facility] nrusing protocol. Rate/Dose Verify 09/22/2016 10:00 AM [...] at 0600)1600 (Due - Provider: Kendall Martínez [facility]) aspirin chewable tablet 81 mg(Linked Group [...] dose on Wed09/21/16 at 1230, Until Discontinued, [place] teeth, Routine 0900 (Not Given - Provider: [...] RN) 08 (Given - Provider: Marek Barnes RN)1622 (Given [...] Routine documented in this encounter Care Teams Hassock Maker Relationship Specialty Start Date End Date Deborah Quiroga APRN PCP - General Family Medicine 03/24/16 02/04/23 documented as of this encounter
--- OUTSIDE RECORDS SUMMARY | 2024-05-09 15:25 | XMS_ITS | Encounter Summary ---
Author Organization [facility], [facility] Address [facility] [address] Care Team Providers Care Mrb Engineer Name Role Phone Ashley Quirogan Cornelius ANURAG Primary Care Provider [phone] Encounter Details Date Type Department Care Team (Latest Contact Info) Description 05/19/2016 11:20 AM EDT [place] [phone] Nonrheumatic aortic valve stenosis Social History Tobacco [facility] Hemat[facility] Oncology [address] [place] [address] 05/12/2024 10:00 AM EDT Office Visit [place] [phone] Markel Borjas MD [facility] [place] [address] 03/01/2025 4:15 PM EDT Office Visit Dermatology at [address] [phone] Marek Bonilla MD [address], [place] [address] documented as of this encounter Procedures Procedure Name Priority Date/Time Associated Diagnosis Comments SCAN, PERIPHERAL BLOOD Routine 05/19/2016 11:32 AM EDT HEMOGRAM Routine 05/19/2016 11:32 AM EDT Nonrheumatic aortic valve stenosis DIFFERENTIAL, AUTOMATED Routine 05/19/2016 11:32 AM EDT Nonrheumatic aortic valve stenosis TYPE AND SCREEN, SDP (FUTURE SURGERY, [facility] SAME DAY PROGRAM ONLY) Routine 05/19/2016 11:32 [...] [facility] RBC Morphology Normal [facility] Blood specimen (specimen) 05/19/2016 11:32 AM EDT 05/19/2016 11:41 AM EDT Narrative Resulting Agency Comment Spec In Lab Alirio Esparza MD HEMATOLOGY ORDERABL ES [facility] [place] [address] * (ABNORMAL) Differential, Automated (05/19/2016 11:32 AM EDT) Pathologist Iron Neutrophil % 25.9 % [facility] Neutrophil Absolute 0.42(Crit ical) 1.70 - 6.10 x10(3)/[facility] Comment: This result has been called to DR ALIRIO ESPARZA by Alivia Ibarra on 05 19 2016 at 1228, and has been read back. Lymph % 59.9 % [facility] Lymphocytes Abs 1.0 0.9 - 3.2 x10(3)/[facility] Monocyte % 13.0 % [facility] Monocyte Abs 0.2(L) 0.3 - 0.9 x10(3)/[facility] Eos % 0.6 % [facility] Eosinophils Abs 0.0 0.0 - 0.4 x10(3)/[facility] Basophil % 0.6 % [facility] [...] 0.04 x10(3)/[facility] Blood specimen (specimen) 05/19/2016 11:32 AM EDT 05/19/2016 11:41 AM EDT Narrative Resulting Agency Comment Spec In Lab Alirio Esparza MD HEMATOLOGY ORDERABL ES [facility] [place] [address] * (ABNORMAL) Hemogram (05/19/2016 11:32 AM EDT) White Blood Cell 1.6(Criti gabrielle) 4.0 - 9.5 x10(3)/mc L [facility] Comment: This result has been called to DR ALIRIO ESPARZA by Alivia Ibarra on 05 19 2016 at 1228, and has been read back. Red Blood Cell 3.96(L) 4.00 - 5.21 x10(6)/mc L [facility] Hemoglobin 12.5 11.7 - 15.5 gm/dL [facility] Hematocrit 37.9 35.7 - 45.8 % [facility] Mean Cell Volume 95.7(H) 82.6 - 94.4 fL [facility] Mean Cell Hemoglobin 31.6 27.1 - 32.0 pg [facility] Mean Cell Hemoglobin Concentration 33.0 31.7 - 35.0 gm/dL [facility] Platelet 227 145 - 357 x10(3)/ L [facility] RDW Standard Deviation 40.5 37.0 - 46.0 [facility] RDW coefficient of variation 11.5 11.5 - 14.1 % [facility] Mean Platelet Volume 8.4 7.6 - 12.9 fL [facility] NRBC% auto 0.0 % [facility] NRBC Absolute 0.000 0.000 - 0.000 x10(3)/ L [facility] Blood specimen (specimen) 05/19/2016 11:32 AM EDT 05/19/2016 11:41 AM EDT Narrative Resulting Agency Comment Spec In Lab Alirio Esparza MD HEMATOLOGY ORDERABL ES [facility] [place] [address] * Antibody screen (05/19/2016 11:32 AM EDT) Ab Screen Interp Negative [facility] Expires at [id number] on: 07/03/2016 [facility] Comment: Corrected from 06/11/16 12:00 [Unknown] on 06/09/16 05:51 by Bethanie Tomlinson I.. Corrected from 07/03/16 12:00 [Unknown] on 05/21/16 06:00 by Shelia Barrera Blood specimen (specimen) 05/19/2016 11:32 AM EDT 05/19/2016 11:35 AM EDT Narrative Resulting Agency Comment Spec In Lab Alirio Esparza MD BLOOD BANK LAB ORDCornelius ALEJO [facility] [place] [address] * ABO/Rh Typing (05/19/2016 11:32 AM EDT) Pathologist [facility] ABORH Type B Pos [facility] Blood specimen (specimen) 05/19/2016 11:32 AM EDT 05/19/2016 11:35 AM EDT Narrative Resulting Agency Comment Spec In Lab Alirio Esparza MD BLOOD BANK LAB BETH ALEJO [facility] [place] [address] * Basic Metabolic Panel (non-fasting) (05/19/2016 11:32 AM EDT) [facility] Glucose 86 65 - 199 mg/dL [facility] [...] the following links into your internet browser. [email or web address] Blood specimen (specimen) 05/19/2016 11:32 AM EDT 05/19/2016 11:41 AM EDT Narrative Resulting Agency Comment Spec In Lab Alirio Esparza MD CHEMISTRY ORDERABLE S [facility] [place] [address] documented in this encounter Visit Diagnoses Diagnosis Nonrheumatic aortic valve stenosis Aortic valve disorders Chronic idiopathic neutropenia Other neutropenia documented in this encounter Care Teams Mrb Engineer Relationship Specialty Start Date End Date Deborah Quiroga APRN PCP - General Family Medicine 03/24/16 02/04/23 documented as of this encounter
--- OUTSIDE RECORDS SUMMARY | 2024-05-09 15:25 | XMS_ITS | Encounter Summary ---
[place] [address] Care Team Providers Care Oven Equipment Repairer Name Role Phone Ashley Quirogan Cornelius ANURAG Primary Care Provider [phone] Encounter Details Date Type Department Care Team (Late st Contact Info) Description 03/24/2016 Notes Only [place] [phone] Alfa Lua Social History Tobacco Use Types [...] assessments completed: Wadsworth Score: 6/6 IADL: 7/7 Vacuum Caster Strength Trials: 18.4, 15.0, 16.8 (right hand dominant) 5 meter walk test in seconds x3: 4.98, 4.88, 4.45 KCCQol: 98% Alfa Lua documented in this encounter Plan of Treatment Upcoming Encounters Date Type Department Care Team (Late st Contact Info) Description 05/12/2024 9:00 AM EDT Laboratory Appointment Lab at [facility] Hematology Oncology [address] [place] [address] 05/12/2024 10:00 AM EDT Office Visit Hematology [place] [address] Markel Borjas MD [facility] [address] [place] [address] 03/01/2025 4:15 PM EDT Office Visit Dermatology at [place] [address] [facility] [place] [phone] Marek Bonilla MD [address], [place] [address] documented as of this encounter Visit Diagnoses Not on filedocumented in this encounter Care Teams Oven Equipment Repairer Relationship Specialty Start Date End Date Deborah Quiroga APRN PCP - General Family Medicine 03/24/16 02/04/23 documented as of this encounter
--- OUTSIDE RECORDS SUMMARY | 2024-05-09 15:25 | XMS_ITS | Encounter Summary ---
Author Organization [facility] [place] [address] Care Team Providers Care Disbursement Clerk Name Role Phone Deborah Quiroga APRN Primary Care Provider Encounter Details Date Type Department Care Team (Latest Contact Info) Description 07/10/2016 2:54 PM EST - 07/10/2016 11:59 PM EST Hospital [place] [phone] Discharge Disposition: Home Social History Tobacco Use [...] [facility] Hematology Oncology [address] [place] [address] 05/12/2024 10:00 AM EDT Office Visit [place] [address] Markel Borjas MD [facility] [address] [place] [address] 03/01/2025 4:15 PM EDT Office Visit Dermatology at [place] [address] [facility] [place] [address] Marek Bonilla MD [address] [facility], [place] [address] documented as of this encounter Procedures Procedure Name Priority Date/Time Associated Diagnosis Comments BONE MARROW FINAL REPORT Routine 07/10/2016 3:43 PM EST documented in this encounter Results * Bone Marrow Final Report (07/10/2016 3:43 PM EST) Final Diagnosis [id number] ?Location: OPW The signing pathologist has (i) examined the relevant preparation(s) for the specimen(s) and (ii) rendered or confirmed the diagnosis(es). . ? Bone Marrow Final DIAGNOSIS BONE MARROW (PERIPHERAL SMEAR, ASPIRATE SMEAR, TOUCH PREP, CLOT SECTION, CORE BIOPSY); [OSR# [id number], COLLECTED 06/23/2016, 19 SLIDES]: ?? 1. ??Normocellular [...] clonal lymphoproliferative or myeloproliferative ? disorder (OSR# [id number]) ?Chromosome analysis on the marrow aspirate revealed a normal female karyotype; ?46,XX[25] ??(OSR# [id number]) Electronically signed by: ??Elian Guillen MD Verified: [...] 3/uL Band/Seg 0.52 x103/uL; Lymph 0.75 x103/uL; Imperial 0.15 x103/uL; Eos 0.01%; Baso 0.01 x10 [...] plasma cells represent 3-4% of the cellularity [place] ? Polytypic plasma cell staining, high background Lambda ?Polytypic plasma cell staining, high background Block: ? B2 (Core biopsy 2) Fixative: ?? Formalin ANTIBODY: ?? RESULT/COMMENT CD3 ? Scattered small lymphocytes and lymphoid aggregates highlighted CD20 ?Few scattered small lymphocytes stain ( ?? <CD3 in aggregates) CD138 ? Scattered plasma cells represent 3-4% of the cellularity [place] ? Polytypic plasma cell staining, high background Lambda ?Polytypic plasma cell staining, high background Note: The immunoperoxidase stains reported above were developed and their performance characteristics determined by [facility]. ??They have not been cleared [...] CONSULTATION CASE A - 19 slides labeled [id number], collection date 06/23/2016. [id number] Report to: [facility] Surgical Pathology Department [facility], [facility], 2nd Floor [address] [place] [address] ??[id number] 07/13/2016 11:38 AM EST [facility] Consult Case 07/10/2016 3:43 PM EST 07/10/2016 3:43 PM EST Nitesh Pina Jr., MD PATHOLOGY/CYTOLOGY O RDERABLES [facility] [place] [place] [address] documented in this encounter Visit Diagnoses Not on filedocumented in this encounter Care Teams Disbursement Clerk Relationship Specialty Start Date End Date Deborah Quiroga, SWITCHBOARD INSTALLER PCP - General Family Medicine 03/24/16 02/04/23 documented as of this encounter
--- OUTSIDE RECORDS SUMMARY | 2024-05-09 15:25 | XMS_ITS | Encounter Summary ---
Author Organization [facility] Address [facility] [place] [address] Care Team Providers Care Corporate Communications Intern Name Role Phone Deborah Quiroga ANURAG Primary Care Provider [phone] Encounter Details Date Type Department Care Team (Late st Contact Info) Description 08/18/2016 Orders [place] [phone] Alirio Esparza MD Aortic valve stenosis, unspecified [...] [facility] Hematology Oncology [address] [place] [address] 05/12/2024 10:00 AM EDT Office Visit Hematology [place] [address] [facility] [address] HEMATOLOGY [place] [address] 03/01/2025 4:15 PM EDT Office Visit Dermatology at [address] [address] Marek Bonilla MD [address] [facility] [facility] [address], [place] [address] documented as of this encounter Results * Basic Metabolic Panel (non-fasting) (08/18/2016 4:50 PM EST) Glucose 82 65 - 199 mg/dL [facility] Comment:Diabetes: >=200 mg/d L plus symptoms Blood Urea Nitrogen 12 8 - 18 mg/dL [facility] Creatinine 0.87 0.70 - 1.20 mg/dL [facility] Comment: Please note that the pediatric reference intervals supplied above were not validated at [facility]. Results from pediatric patients [...] the following links into your internet browser. [email or web address] Blood specimen (specimen) 08/18/2016 4:50 PM EST 08/18/2016 5:03 PM EST Narrative Resulting Agency Comment Spec In Lab Alirio Esparza MD CHEMISTRY ORDERABLE S [facility] [place] [address] documented in this encounter Visit Diagnoses Diagnosis Aortic valve stenosis, unspecified etiology Chronic idiopathic neutropenia Other neutropenia documented in this encounter Care Teams Corporate Communications Intern Relationship Specialty Start Date End Date Deborah Quiroga, ANURAG PCP - General Family Medicine 03/24/16 02/04/23 documented as of this encounter
--- OUTSIDE RECORDS SUMMARY | 2024-05-09 15:25 | XMS_ITS | Encounter Summary ---
Author Organization [facility] Address [facility] [place] [address] Care Team Providers Care Kettle Hand Name Role Phone Junaid Deborah Cornelius ANURAG Primary Care Provider [phone] Encounter Details Date Type Department Care Team (Late st Contact Info) Description 07/13/2016 External [place] [phone] Provider, Scanning Social History Tobacco Use Types [...] [facility] Hematology Oncology [address] [place] [address] 05/12/2024 10:00 AM EDT Office Visit Hematology [place] [phone] Markel Borjas MD [facility] [address] [place] [address] 03/01/2025 4:15 PM EDT Office Visit Dermatology at [place] [address] [facility] [place] [phone] Marek Bonilla MD [address] [facility] [address], [place] [address] documented as of this encounter Procedures Procedure Name Priority Date/Time Associated Diagnosis Comments SURGICAL PATHOLOGY SCAN Routine 07/13/2016 documented in this encounter Results * Scan Doc: Surgical Pathology (07/13/2016) Nitesh Pina Jr., MD MEDIA MGR SCAN EXT O RDR/RSLT documented in this encounter Visit Diagnoses Not on filedocumented in this encounter Care Teams Kettle Hand Relationship Specialty Start Date End Date Deborah Quiroga APRN PCP - General Family Medicine 03/24/16 02/04/23 documented as of this encounter
--- OUTSIDE RECORDS SUMMARY | 2024-05-09 15:25 | XMS_ITS | Encounter Summary ---
[place] [address] Care Team Providers Care Tire Care Manager Name Role Phone Ashley Quirogan Cornelius ANURAG Primary Care Provider [phone] Reason for Visit * Reason Onset Date Comments Medication Management 09/14/2016 Encounter Details Date Type Department Care Team (Late st Contact Info) Description 09/14/2016 Telephone [place]ematology [place] [phone] Alexandrea Greenwood, wire wrapper machine operator Management Social History Tobacco Use Types [...] [facility] Hematology Oncology [address] [place] [address] 05/12/2024 10:00 AM EDT Office Visit [place] [address] Markel Borjas MD [facility] [address] [place] [address] 03/01/2025 4:15 PM EDT Office Visit Dermatology at [place] [address] [facility] [place] [address] Marek Bonilla MD [address] [facility] [address], [place] [address] documented as of this encounter Visit Diagnoses Not on filedocumented in this encounter Care Teams Tire Care Manager Relationship Specialty Start Date End Date Deborah Quiroga APRN PCP - General Family Medicine 03/24/16 02/04/23 documented as of this encounter
--- OUTSIDE RECORDS SUMMARY | 2024-05-09 15:25 | XMS_ITS | Encounter Summary ---
Author Organization [facility] Address [facility] [place] [address] Care Team Providers Care Java Software Architect Name Role Phone Junaid Deborah Shields APRN Primary Care Provider [phone] Encounter Details Date Type Department Care Team (Latest Contact Info) Description 06/19/2016 - 06/19/2016 11:59 PM EST Hospital Encounter Radiology Library at [facility] [place] [phone] Nitesh Pina Jr., MD [facility] HEMATOLOGY [place] [address] Pain Discharge Disposition: Home Social History Tobacco [...] [facility] Hematology Oncology [address] [place] [address] 05/12/2024 10:00 AM EDT Office Visit [place] [address] Markel Borjas MD [facility] DR HEMATOLOGY [place] [address] 03/01/2025 4:15 PM EDT Office Visit Dermatology at [place] [address] [place] [phone] Marek Bonilla MD [address] [facility], [place] [address] documented as of this encounter Procedures Procedure Name Priority Date/Time Associated Diagnosis Comments FILM LIBRARY STORAGE ONLY CT CHEST ABDOMEN PELVIS Routine 06/19/2016 12:00 AM EST Pain documented in this encounter Results * Film Library- Storage Only CT Chest Abdomen Pelvis (06/19/2016 12:00 AM EST) Narrative [facility] - 06/20/2016 8:53 AM EST This exam is for storage only and is auto-finalizing. Nitesh Pina Jr., MD IMG FILM LIBRARY ORD ERABLES [place], [place] documented in this encounter Visit Diagnoses Diagnosis Pain Generalized pain Chronic idiopathic neutropenia Other neutropenia documented in this encounter Care Teams Java Software Architect Relationship Specialty Start Date End Date Deborah Quiroga APRN PCP - General Family Medicine 03/24/16 02/04/23 documented as of this encounter
--- OUTSIDE RECORDS SUMMARY | 2024-05-09 15:25 | XMS_ITS | Encounter Summary ---
Author Organization [facility] Address [facility] [address] Care Team Providers Care Corporate Logistics Manager Name Role Phone Deborah Quiroga APRN Primary Care Provider [phone] Encounter Details Date Type Department Care Team (Latest Contact Info) Description 05/19/2016 11:52 AM EDT - 05/19/2016 11:59 PM EDT Hospital Encounter XRay at [address] [place] [address] Alirio Esparza MD Nonrheumatic aortic valve stenosis [...] [facility] [place] Oncology [address] [place] [address] 05/12/2024 10:00 AM EDT Office Visit Hematology [place] [address] Markel Borjas MD [facility] [address] [place] [address] 03/01/2025 4:15 PM EDT Office Visit Dermatology at [place] [address] [facility] [place] [address] Marek Bonilla MD [address] [facility], [place] [address] documented as of this encounter Procedures Procedure [...] documented in this encounter Care Teams Corporate Logistics Manager Relationship Specialty Start Date End Date Deborah Quiroga, STEAMER GUM CANDY PCP - General Family Medicine 03/24/16 02/04/23 documented as of this encounter
--- OUTSIDE RECORDS SUMMARY | 2024-05-09 15:25 | XMS_ITS | Encounter Summary ---
Author Organization [facility] Address [place] [address] Care Team Providers Care Tower Equipment Repairer Name Role Phone JunaidAshley hargrovezac Shields APRN Primary Care Provider [phone] Reason for Visit * Auth/Cert Specialty Diagnoses / Procedures Referred By Crispin t Referred To Contact Diagnoses AVS Procedures CARDIAC CATHETERIZATION Referral ID Status Reason Start Date Expiration Date Visits Re quested Visits Authorized [id number] 1 1 Encounter Details Date Type Department Care Team (Late st Contact Info) Description 06/03/2016 6:32 AM EDT - 06/03/2016 1:10 PM EDT Hospital En[place] [phone] Anjum Oliveros II, MD [facility] [place] [address] Mario Alberto Escobedo MD [facility] [place] [address] Aortic valve stenosis, unspecified etiology; Nonrheumatic aortic [...] by your doctor, do not take any buvo-wcw-iqlczyy medicinesor herbal preparations without first discussing this with your doctor or pharmacist. There is the possibility of side effects and interactions when these are combined. Follow Up Care Who to call with questions or problems If there are any questions or problems that you think might be related to your cardiac cath or angioplasty, contact the car dryer diamond cleaner by calling [facility] at . * Patient Instructions* Felicia Corrigan - 06/03/2016 9:33 AM EDT Cardiology Instructions Call your doctor if: Chest pain, dyspnea, pain or swelling in legs occurs. If you have non-emergent questions between now and the time of your follow up appointments: -During 8am-5pm Wednesday through Wednesday call [phone] to speak with a nurse in the cardiology clinic -All other times call [phone] and ask to speak to the tong hooker diamond cleaner. MEDICATIONS - restart your spironolactone, discontinue prior [...] Appointments: Primary care provider: Cardiology: Deborah Hahn, DEPARTMENT SPECIALIST [phone] Follow up as planned or as needed. Dr. Esparza [phone] Other follow-up appointment: Hematology - Dr. Mario [...] Lab at [facility] Hematology Oncology [address] [place] [address] 05/12/2024 10:00 AM EDT Office Visit Hematology [place] [address] Markel Borjas MD [facility] DR [place] [address] 03/01/2025 4:15 PM EDT Office Visit Dermatology at [place] [address] [facility] [place] [phone] Marek Bonilla MD [address] [facility] [address], [place] [address] documented as of this encounter Procedures Procedure [...] AM EDT) Green Hold Sample in lab. [facility] Blood specimen (specimen) Venous Draw / Unknown 06/03/2016 11:45 AM EDT 06/03/2016 12:12 PM EDT Mario Alberto Escobedo MD CHEMISTRY ORDERABLES [facility] [place] [address] * Methylmalonic acid, serum (06/03/2016 11:45 AM EDT) Methylmalonic Acid (NOVEMBER) 0.21 <=0.40 nmol/mL [facility] Comment: Test Performed by: [address] [address] Clinic Cma: Raymond Chaudhry II, M.D., Ph.D. Blood specimen (specimen) 06/03/2016 11:45 AM EDT 06/03/2016 1:57 PM EDT Narrative Resulting Agency Comment Spec In Lab Mario Alberto Escobedo MD LAB SEND OUT ORDERAB LES Performing Organization Address [facility] Co de Phone Number [facility] [place] [address] * Granulocyte Antibody (06/03/2016 11:45 AM EDT) Granulocyte Ab (NOVEMBER) Negative Not Applicable [facility] Comment: ADDITIONAL INFORMATION Method: Immunofluorescent Assay Performing Laboratory CLIA# [id number] This test was developed and its performance characteristics determined by [facility] in a manner consistent with CLIA requirements. This test has not been cleared or approved by the U.S. Food and Drug Administration. Test Performed by: [place] [address] Clinic Cma: Raymond Chaudhry II, M.D., Ph.D. Blood specimen (specimen) 06/03/2016 11:45 AM EDT 06/03/2016 1:57 PM EDT Narrative Resulting Agency Comment Spec In Lab Mario Alberto Escobedo MD LAB SEND OUT ORDERAB LES Performing Organization Address [facility] Co de Phone Number [facility] [place] [address] * TSH (06/03/2016 11:45 AM EDT) Thyroid Stimulating Hormone 2.18 0.27 - 4.20 mcIU/mL [facility] Blood specimen (specimen) 06/03/2016 11:45 AM EDT 06/03/2016 12:11 PM EDT Narrative Resulting Agency Comment Spec In Lab Mario Alberto Escobedo MD CHEMISTRY ORDERABLES Performing Organization Address [facility]/ZIP Co de Phone Number [facility] [place] [address] * Homocysteine Total, Plasma (06/03/2016 11:45 AM EDT) Homocystine 9 <=15 mcmol/L [facility] Blood specimen (specimen) 06/03/2016 11:45 AM EDT 06/03/2016 12:11 PM EDT Narrative Resulting Agency Comment Spec In Lab Mario Alberto Escobedo MD CHEMISTRY ORDERABLES Performing Organization Address City/[facility]/ZIP Co de Phone Number [facility] [place] [address] * Folate, serum (06/03/2016 11:45 AM EDT) Folate >20.0 4.8 - 24.2 ng/mL [facility] Blood specimen (specimen) 06/03/2016 11:45 AM EDT 06/03/2016 12:04 PM EDT Narrative Resulting Agency Comment Spec In Lab Mario Alberto Escobedo MD CHEMISTRY ORDERABLES Performing Organization Address City/[facility]/ZIP Co de Phone Number [facility] [place] [address] * (ABNORMAL) Sedimentation rate (06/03/2016 11:45 AM EDT) Sedimentation Rate Automated 41(H) 0 - 20 mm/hr [facility] Blood specimen (specimen) 06/03/2016 11:45 AM EDT 06/03/2016 12:04 PM EDT Narrative Resulting Agency Comment Spec In Lab Mario Alberto Escobedo MD HEMATOLOGY ORDERABLE S Performing Organization Address City/[facility]/ZIP Co de Phone Number [facility] [place] [address] * Lactate Dehydrogenase (06/03/2016 11:45 AM EDT) Lactate Dehydrogenase 164 110 - 220 unit/L [facility] Blood specimen (specimen) 06/03/2016 11:45 AM EDT 06/03/2016 12:11 PM EDT Narrative Resulting Agency Comment Spec In Lab Mario Alberto Escobedo MD CHEMISTRY ORDERABLES [facility] [place] [address] * Comprehensive metabolic panel (non-fasting) (06/03/2016 11:45 AM EDT) Glucose 90 65 - 199 mg/dL [facility] Comment:Diabetes: >=200 mg/d L plus symptoms Blood Urea Nitrogen 11 8 - 18 mg/dL [facility] Creatinine 0.83 0.70 - 1.20 mg/dL [facility] Comment: Please note that the pediatric reference intervals supplied above were not validated at [facility]. Results from pediatric patients should be interpreted in conjunction to the patient's age, height and muscle mass. Sodium 143 135 - 145 mmol/L [facility] Potassium 4.0 3.5 - 5.0 mmol/L [facility] Comment: Please note: ??Patients with WBC >100,000 may have falsely elevated Potassium levels. ??For accurate Potassium quantification in these patients send serum separator tube (gold top) for subsequent determinations. ??Contact the Clinical Chemistry Laboratory if there are any questions. Chloride 104 98 - 107 mmol/L [facility] Carbon Dioxide 25 22 - 31 mmol/L [facility] Anion Gap 14 5 - 15 mmol/L [facility] Calcium 9.2 8.5 - 10.5 mg/dL [facility] Protein, Total 7.0 6.1 - 8.0 gm/dL [facility] Albumin 4.0 3.2 - 5.2 gm/dL [facility] Aspartate Aminotransferase 17 0 - 30 unit/L [facility] Alanine Aminotransferase 9 0 - 30 unit/L [facility] Alkaline Phosphatase 81 40 - 104 unit/L [facility] Bilirubin, Total 0.4 0.2 - 1.3 mg/dL [facility] Bilirubin, Direct 0.1 0.0 - 0.3 mg/dL [facility] Est Glomerular [...] the following links into your internet browser. [email or web address] Blood specimen (specimen) 06/03/2016 11:45 AM EDT 06/03/2016 12:11 PM EDT Narrative Resulting Agency Comment Spec In Lab Mario Alberto Escobedo MD CHEMISTRY ORDERABLES [facility] [place] [id number] documented in this encounter Visit Diagnoses Diagnosis [...] Hernandez) documented in this encounter Care Teams Tower Equipment Repairer Relationship Specialty Start Date End Date Deborah Quiroga, DEPARTMENT SPECIALIST PCP - General Family Medicine 03/24/16 02/04/23 documented as of this encounter
--- OUTSIDE RECORDS SUMMARY | 2024-05-09 15:25 | XMS_ITS | Encounter Summary ---
Author Organization [facility] Address [facility] [place] [address] Care Team Providers Care Pattern Developer Name Role Phone Deborah Quiroga ANURAG Primary Care Provider [phone] Encounter Details Date Type Department Care Team (Late st Contact Info) Description 08/04/2016 External Results Hematology [place] [address] Alexandrea Greenwood RN Neutropenia, unspecified type Social [...] at [facility] Hematology Oncology [address] [place] [address] 05/12/2024 10:00 AM EDT Office Visit Hematology [place] [address] Markel Borjas MD [facility] [place] [address] 03/01/2025 4:15 PM EDT Office Visit Dermatology at [address] [address] Marek Bonilla MD [address], [place] [address] documented as of this encounter Procedures Procedure [...] neutropenia documented in this encounter Care Teams Pattern Developer Relationship Specialty Start Date End Date Deborah Quiroga APRN PCP - General Family Medicine 03/24/16 02/04/23 documented as of this encounter
--- OUTSIDE RECORDS SUMMARY | 2024-05-09 15:25 | XMS_ITS | Encounter Summary ---
[place] [address] Care Team Providers Care Local Flatbed Driver Name Role Phone Deborah Quiroga APRN Primary Care Provider [phone] Reason for Visit * Reason Onset Date Comments Prior Authorization 09/11/2016 Neulasta Encounter Details Date Type Department Care Team (Late st Contact Info) Description 09/11/2016 Telephone [place] [phone] Monica Wick Prior Authorization (Neulasta ) Social [...] AM EST Prior Auth for Neulasta (Approved) [facility] is a covered facility under the members plan. ID# [id number] Call placed to [phone] Rationale: Can you please start a PA for this pt to receive as outpatient at [facility] on 09/16/16? 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 ??Her last ANC was 0.56 (or 560) on 08/04/16. ??This will need to be approved through her medical as out patient. J code for neulasta. ?? [id number]. Spoke w/ Anna Marie Call Reference [id number] Copay: $ Deductible is not met, patient will have out of pocket costs until deductible is met. documented in this encounter Plan of Treatment Upcoming Encounters Date Type Department Care Team (Late st Contact Info) Description 05/12/2024 9:00 AM EDT Laboratory Appointment Lab at [facility] Hematology Oncology [address] [place] [address] 05/12/2024 10:00 AM EDT Office Visit [place] [address] Markel Borjas MD [facility] [address] HEMATOLOGY [place] [address] 03/01/2025 4:15 PM EDT Office Visit Dermatology at [place] [address] [address] Marek Bonilla MD [address] [place] [address] documented as of this encounter Visit Diagnoses Not on filedocumented in this encounter Care Teams Local Flatbed Driver Relationship Specialty Start Date End Date Deborah Quiroga APRN PCP - General Family Medicine 03/24/16 02/04/23 documented as of this encounter
--- OUTSIDE RECORDS SUMMARY | 2024-05-09 15:25 | XMS_ITS | Encounter Summary ---
Author Organization [facility] Address [facility] [place] [address] Care Team Providers Care Dressage Judge Name Role Phone Junaid, Deborah Shields APRN Primary Care Provider [phone] Reason for Visit * Auth/Cert Specialty Diagnoses / Procedures Referred By Crispin t Referred To Contact Diagnoses AVS Procedures CARDIAC CATHETERIZATION Referral ID Status Reason Start Date Expiration Date Visits Re quested Visits Authorized [id number] 1 1 Encounter Details Date Type Department Care Team (Late st Contact Info) Description 06/03/2016 7:30 AM EDT - 06/03/2016 8:30 AM EDT [place] [phone] Mario Alberto Escobedo MD [facility] [place] [address] CARDIAC CATHETERIZATION Social History Tobacco Use Types [...] by your doctor, do not take any gxpp-efv-yavizng medicinesor herbal preparations without first discussing this with your doctor or pharmacist. There is the possibility of side effects and interactions when these are combined. Follow Up Care Who to call with questions or problems If there are any questions or problems that you think might be related to your cardiac cath or angioplasty, contact the block splitter operator food consultant by calling [facility] at . * Patient Instructions* Felicia Corrigan - 06/03/2016 9:33 AM EDT Cardiology Instructions Call your doctor if: Chest pain, dyspnea, pain or swelling in legs occurs. If you have non-emergent questions between now and the time of your follow up appointments: -During 8am-5pm Wednesday through Wednesday call [phone] to speak with a nurse in the cardiology clinic -All other times call [phone] and ask to speak to the maintenance supervisor mechanical food consultant. MEDICATIONS - restart your spironolactone, discontinue prior [...] Appointments: Primary care provider: Cardiology: Deborah Hahn, ASSISTANT DESIGNER [phone] Follow up as planned or as needed. Dr. Esparza [phone] Other follow-up appointment: Hematology - Dr. Mario [...] [facility] Hemat[facility] Oncology [address] [place] [address] 05/12/2024 10:00 AM EDT Office Visit [place] [address] Markel Borjas MD [facility] [address] HEMATOLOGY [place] [address] 03/01/2025 4:15 PM EDT Office Visit Dermatology at [place] [address] [facility] [place] [phone] Marek Bonilla MD [address], [place] [address] documented as of this encounter Procedures Procedure [...] Escobedo MD CHEMISTRY ORDERABLES Performing Organization Address City/[facility]/ZIP Co de Phone Number [facility] [place] [address] * Methylmalonic acid, serum (06/03/2016 11:45 AM EDT) Methylmalonic Acid (NOVEMBER) 0.21 <=0.40 nmol/mL [facility] Comment: Test Performed by: [address] [address] Chemistry Intern: Raymond Chaudhry II, M.D., Ph.D. Blood specimen (specimen) 06/03/2016 11:45 AM EDT 06/03/2016 1:57 PM EDT Narrative Resulting Agency Comment Spec In Lab Mario Alberto Escobedo MD LAB SEND OUT ORDERAB LES Performing Organization Address City/[facility]/ZIP Co de Phone Number [facility] [address] * Granulocyte Antibody (06/03/2016 11:45 AM EDT) Pathologist [facility] Granulocyte Ab (NOVEMBER) Negative Not Applicable [facility] Comment: ADDITIONAL INFORMATION Method: Immunofluorescent Assay Performing Laboratory CLIA# [id number] This test was developed and its performance characteristics determined by [facility] in a manner consistent with CLIA requirements. This test has not been cleared or approved by the U.S. Food and Drug Administration. Test Performed by: [place] [address] Chemistry Intern: Raymond Chaudhry II, M.D., Ph.D. Blood specimen (specimen) 06/03/2016 11:45 AM EDT 06/03/2016 1:57 PM EDT Narrative Resulting Agency Comment Spec In Lab Mario Alberto Escobedo MD LAB SEND OUT ORDERAB LES [facility] [place] [address] * TSH (06/03/2016 11:45 AM EDT) Pathologist [facility] Thyroid Stimulating Hormone 2.18 0.27 - 4.20 mcIU/mL [facility] Blood specimen (specimen) 06/03/2016 11:45 AM EDT 06/03/2016 12:11 PM EDT Narrative Resulting Agency Comment Spec In Lab Mario Alberto Escobedo MD CHEMISTRY ORDERABLES Performing Organization Address City/[facility]/ZIP Co de Phone Number [facility] [place] [address] * Homocysteine Total, Plasma (06/03/2016 11:45 AM EDT) Homocystine 9 <=15 mcmol/L [facility] Blood specimen (specimen) 06/03/2016 11:45 AM EDT 06/03/2016 12:11 PM EDT Narrative Resulting Agency Comment Spec In Lab Mario Alberto Escobedo MD CHEMISTRY ORDERABLES Performing Organization Address City/[facility] Co de Phone Number [facility] [address] * Folate, serum (06/03/2016 11:45 AM EDT) Folate >20.0 4.8 - 24.2 ng/mL [facility] Blood specimen (specimen) 06/03/2016 11:45 AM EDT 06/03/2016 12:04 PM EDT Narrative Resulting Agency Comment Spec In Lab Mario Alberto Escobedo MD CHEMISTRY ORDERABLES Performing Organization Address [facility] Co de Phone Number [facility] [address] * (ABNORMAL) Sedimentation rate (06/03/2016 11:45 AM EDT) Sedimentation Rate Automated 41(H) 0 - 20 mm/hr [facility] Blood specimen (specimen) 06/03/2016 11:45 AM EDT 06/03/2016 12:04 PM EDT Narrative Resulting Agency Comment Spec In Lab Mario Alberto Escobedo MD HEMATOLOGY ORDERABLE S Performing Organization Address City/[facility] Co de Phone Number [facility] [address] * Lactate Dehydrogenase (06/03/2016 11:45 AM EDT) Lactate Dehydrogenase 164 110 - 220 unit/L [facility] Blood specimen (specimen) 06/03/2016 11:45 AM EDT 06/03/2016 12:11 PM EDT Narrative Resulting Agency Comment Spec In Lab Mario Alberto Escobedo MD CHEMISTRY ORDERABLES Performing Organization Address City/[facility]/ZIP Co de Phone Number [facility] [place] [address] * Comprehensive metabolic panel (non-fasting) (06/03/2016 11:45 [...] the following links into your internet browser. [email or web address] Blood specimen (specimen) 06/03/2016 11:45 AM EDT 06/03/2016 12:11 PM EDT Narrative Resulting Agency Comment Spec In Lab Mario Alberto Escobedo MD CHEMISTRY ORDERABLES [facility] [place] [address] documented in this encounter Visit Diagnoses Diagnosis Aortic valve stenosis, unspecified etiology Nonrheumatic aortic valve stenosis Aortic valve disorders Aortic valve stenosis, unspecified etiology Chronic idiopathic [...] Hernandez) documented in this encounter Care Teams Dressage Judge Relationship Specialty Start Date End Date Deborah Quiroga, ASSISTANT DESIGNER PCP - General Family Medicine 03/24/16 02/04/23 documented as of this encounter
--- OUTSIDE RECORDS SUMMARY | 2024-05-09 15:25 | XMS_ITS | Encounter Summary ---
Author Organization [facility] [place] [address] Care Team Providers Care Guard Entrance Registrar Name Role Phone Deborah Quiroga ANURAG Primary Care Provider [phone] Encounter Details Date Type Department Care Team (Late st Contact Info) Description 05/22/2016 Orders Only Cardiology at [address] [phone] Chele Randolph PA [facility] [place] [address] Aortic valve stenosis, unspecified etiology Social History [place] [facility] [place] [facility] [place]ematology Oncology [address] [place] [phone] 05/12/2024 10:00 AM EDT Office Visit Hematology [place] [phone] Markel Borjas MD [facility] [address] [place] [address] 03/01/2025 4:15 PM EDT Office Visit Dermatology at [place] [address] [facility] [place] [phone] Marek Bonilla MD [address], [place] [address] documented as of this encounter Procedures Procedure Name Priority Date/Time Associated Diagnosis Comments CARDIAC CATHETERIZATION Routine 06/03/20 16 9:13 AM EDT Aortic valve stenosis, unspecified etiology documented in this encounter Results * CARDIAC CATHETERIZATION (06/03/2016 9:13 AM EDT) Anatomical Region Laterality Modality Other Narrative 06/03/2016 10:13 AM EDT ?[facility] ? Cardiac Catheterization/Intervention Report ? Patient Name: Purnima Thacker. ? Procedure Date: 06/03/2016 ? A #: [id number] ? Primary Physician: Nitesh Escobedo ? Case #: [id number] ? File Name: [id number] ? Catheterization Order Number: [id number] ? [facility] ? Final Report [place], [place] ? Patient Name: ? Purnima M. Kirstie ? ID#: ?[id number] ? : ?1955 ? Procedure Date: ? [...] no symptom, no angina (w/i 14 days). [place] ?Cardiovascular Society angina class was 0. This [...] ? Procedure Nitesh Marroquin, MD - 09/21/2016 [facility] Cardiac Catheterization/Intervention Report Patient Name: Purnima Thacker Procedure Date: 06/03/2016 A #: [id number] Primary Physician: Nitesh Escobedo Case #: [id number] File Name: [id number] Catheterization Order Number: [id number] [facility] FinalReport [place], [place] Patient Name: Purnima Thacker ID#:[id number] :1955 Procedure Date: June 03, 2016 Case [...] with: no symptom, no angina (w/i 14 days).[place] Cardi[employer] Society angina class was 0. This [...] unspecified etiology Aortic valve stenosis, unspecified etiology Chronic idiopathic neutropenia Other neutropenia documented in this encounter Care Teams Guard Entrance Registrar Relationship Specialty Start Date End Date Deborah Quiroga, SEPARATOR INSERTER PCP - General Family Medicine 03/24/16 02/04/23 documented as of this encounter
--- OUTSIDE RECORDS SUMMARY | 2024-05-09 15:25 | XMS_ITS | Encounter Summary ---
[place] [address] Care Team Providers Care Terrazzo Journeyman Name Role Phone Deborah Quiroga ANURAG Primary Care Provider [phone] Reason for Visit * Reason Onset Date Comments Medical Care Coordination 07/31/2016 Encounter Details Date Type Department Care Team (Late st Contact Info) Description 07/31/2016 Telephone Hematology [place] [phone] Alexnadrea Greenwood RN Medical Care Coordination Social History [...] 08/04/15 RN spoke with Aydee of the [facility] lab who states they can draw pt's cbc on 08/04/15, RN faxed lab req to [phone] at Aydee's request. RN instructed pt on Dr. Borjas's direction above. Pt verbalized understanding. documented in this encounter Plan of Treatment Upcoming Encounters Date Type Department Care Team (Late st Contact Info) Description 05/12/2024 9:00 AM EDT Laboratory Appointment Lab at [facility] Hematology Oncology [address] [place] [address] 05/12/2024 10:00 AM EDT Office Visit Hematology [place] [address] Markel Borjas MD [facility] [address] [place] [address] 03/01/2025 4:15 PM EDT Office Visit Dermatology at [place] [address] [facility] [place] [phone] Marek Bonilla MD [address], [place] [address] documented as of this encounter Visit Diagnoses Not on filedocumented in this encounter Care Teams Terrazzo Journeyman Relationship Specialty Start Date End Date Deborah Quiroga, COMPUTER SYSTEMS DESIGNER PCP - General Family Medicine 03/24/16 02/04/23 documented as of this encounter
--- OUTSIDE RECORDS SUMMARY | 2024-05-09 15:25 | XMS_ITS | Encounter Summary ---
Author Organization [facility] Address [facility] [place] [address] Care Team Providers Care Medical Center Representative Name Role Phone Deborah Quiroga ANURAG Primary Care Provider [phone] Encounter Details Date Type Department Care Team (Latest Contact Info) Description 08/18/2016 4:40 PM EST Laboratory [place] [phone] Aortic valve stenosis, unspecified etiology Social History [...] [facility] Hematology Oncology [address] [place] [address] 05/12/2024 10:00 AM EDT Office Visit Hematology [place] [phone] Markel Borjas MD [facility] [address] [place] [address] 03/01/2025 4:15 PM EDT Office Visit Dermatology at [address] [phone] Marek Bonilla MD [address], [place] [address] documented as of this encounter Procedures Procedure [...] PM EST) ABORH Type Recheck Completed [facility] Blood specimen (specimen) 08/18/2016 4:50 PM EST 08/18/2016 5:27 PM EST Narrative Resulting Agency Comment Spec In Lab Alirio Esparza MD [facility] Organization Address City/State/ZIP Co de Phone Number [facility] [place] [address] * Antibody screen (08/18/2016 4:50 PM EST) Ab Screen Interp Negative [facility] Expires at 2359 on: 09/24/2016 [facility] Comment: Corrected from 09/17/16 12:00 [Unknown] on 09/09/16 02:32 by Shireen Treviño Blood specimen (specimen) 08/18/2016 4:50 PM EST 08/18/2016 5:11 PM EST Narrative Resulting Agency Comment Spec In Lab Alirio Esparza MD [facility]LO[facility] LAB [facility] Performing Organization Address City/[facility]/ZIP Co de Phone Number [facility] [place] [address] * ABO/Rh Typing (08/18/2016 4:50 PM EST) ABORH Type B Pos [facility] Blood specimen (specimen) 08/18/2016 4:50 PM EST 08/18/2016 5:11 PM EST Narrative Resulting Agency Comment Spec In Lab Alirio Esparza MD BLOOD BANK LAB [facility] Performing Organization Address [facility] Co de Phone Number [facility] [place] [address] * Basic Metabolic Panel (non-fasting) (08/18/2016 4:50 PM EST) [facility] Glucose 82 65 - 199 mg/dL [facility] Comment:Diabetes: >=200 mg/d L plus symptoms Blood Urea Nitrogen 12 8 - 18 mg/dL [facility] Creatinine 0.87 0.70 - 1.20 mg/dL [facility] Comment: Please note that the pediatric reference intervals supplied above were not validated at [facility]. Results from pediatric patients should be interpreted in conjunction to the patient's age, height and muscle mass. Sodium 142 135 - 145 mmol/L [facility] Potassium 3.8 3.5 - 5.0 mmol/L [facility] Comment: Please note: ??Patients with WBC >100,000 may have falsely elevated Potassium levels. ??For accurate Potassium quantification in these patients send serum separator tube (gold top) for subsequent determinations. ??Contact the Clinical Chemistry Laboratory if there are any questions. Chloride 102 98 - 107 mmol/L [facility] Carbon Dioxide 26 22 - 31 mmol/L [facility] Anion Gap 14 5 - 15 mmol/L [facility] Calcium 9.7 8.5 - 10.5 mg/dL [facility] [...] the following links into your internet browser. [email or web address] Blood specimen (specimen) 08/18/2016 4:50 PM EST 08/18/2016 5:03 PM EST Narrative Resulting Agency Comment Spec In Lab Alirio Esparza MD CHEMISTRY ORDERABLE S [facility] [place] [address] documented in this encounter Visit Diagnoses Diagnosis Aortic valve stenosis, unspecified etiology Chronic idiopathic neutropenia Other neutropenia documented in this encounter Care Teams Medical Center Representative Relationship Specialty Start Date End Date Deborah Quiroga APRN PCP - General Family Medicine 03/24/16 02/04/23 documented as of this encounter
--- OUTSIDE RECORDS SUMMARY | 2024-05-09 15:25 | XMS_ITS | Encounter Summary ---
[place] [address] Care Team Providers Care Circuit Clerk Name Role Phone Deborah Quiroga ANURAG Primary Care Provider [phone] Reason for Visit * Reason Onset Date Comments Medical Care Coordination 07/17/2016 Encounter Details Date Type Department Care Team ([facility] Contact Info) Description 07/17/2016 Telephone Hematology [place] [phone] Alexandrea Greenwood RN Medical Care Coordination Social [...] administrative secretary: Injection/Infusion Referral Call placed to [phone]). Spoke w/ Pasquale. Services to be provided for pt are: Labs @ 10am ([facility]) & Neulasta @ 11am on 07/20/16, CBC only on 07/30/16 Pasquale confirmed they would provide services to pt and I left [facility] for pt to call for appt info. Pt demographics, office note, med list and orders faxed to [facility] & [facility] documented in this encounter Plan of Treatment Upcoming Encounters Date Type Department Care Team (Late st Contact Info) Description 05/12/2024 9:00 AM EDT Laboratory Appointment Lab at [facility] [place] Oncology [address] [place] [address] 05/12/2024 10:00 AM EDT Office Visit Hematology [place] [address] Markel Borjas MD [facility] [address] HEMATOLOGY [place] [address] 03/01/2025 4:15 PM EDT Office Visit Dermatology at [place] [address] [place] [phone] Marek Bonilla MD [address], [place] [address] documented as of this encounter Visit Diagnoses Not on filedocumented in this encounter Care Teams Circuit Clerk Relationship Specialty Start Date End Date Deborah Quiroga APRN PCP - General Family Medicine 03/24/16 02/04/23 documented as of this encounter
--- OUTSIDE RECORDS SUMMARY | 2024-05-09 15:25 | XMS_ITS | Encounter Summary ---
[place] [address] Care Team Providers Care Fuel Yard Operator Name Role Phone JunaidDeborah APRN Primary Care Provider [phone] Reason for Visit * Reason Onset Date Comments Pre Procedure Call 06/18/2016 Encounter Details Date Type Department Care Team (Late st Contact Info) Description 06/18/2016 Telephone Hematology [place] [address] Alexandrea Greenwood RN Pre Procedure Call Social [facility] [place] [place] [address] [place] [address] 05/12/2024 10:00 AM EDT Office Visit Hematology [place] [address] Markel Borjas MD [facility] [address] HEMATOLOGY [place] [address] 03/01/2025 4:15 PM EDT Office Visit Dermatology at [place] [address] [facility] [place] [address] Marek Bonilla MD [address], [address] [place] [address] documented as of this encounter Visit Diagnoses Not on filedocumented in this encounter Care Teams Fuel Yard Operator Relationship Specialty Start Date End Date Deborah Quiroga, NEONATAL PEDIATRIC NURSE PCP - General Family Medicine 03/24/16 02/04/23 documented as of this encounter
--- OUTSIDE RECORDS SUMMARY | 2024-05-09 15:25 | XMS_ITS | Encounter Summary ---
Author Organization [facility] Address [facility] [place] [address] Care Team Providers Care Hris Manager Name Role Phone Junaid Deborah Shields APRN Primary Care Provider [phone] Encounter Details Date Type Department Care Team (Latest Contact Info) Description 05/19/2016 11:00 AM EDT Clinical [place] [phone] Nonrheumatic aortic valve stenosis Social History Tobacco [...] [facility] Hematology Oncology [address] [place] [address] 05/12/2024 10:00 AM EDT Office Visit Hematology [place] [address] Markel Borjas MD [facility] [address] [place] [address] 03/01/2025 4:15 PM EDT Office Visit Dermatology at [place] [address] [facility] [place] [phone] Marek Bonilla MD [address], [place] [address] documented as of this encounter Procedures Procedure [...] (Bezet) 448 ms MUSE SYSTEM Calculated P Rueter 37 degrees MUSE SYSTEM Calculated R Rueter 31 degrees MUSE SYSTEM Calculated T Rueter 25 degrees MUSE SYSTEM INTERPRETATION Normal sinus rhythm Normal ECG No previous ECGs available Confirmed by MD Becca, Deangelo ([id number]) on 05/19/2016 5:23:33 PM MUSE SYSTEM 05/19/2016 11:4 3 AM EDT 05/19/2016 5:23 PM EDT Alirio Esparza MD ECG ORDERABLES [employer] documented in this encounter Visit Diagnoses Diagnosis Nonrheumatic aortic valve stenosis Aortic valve disorders Chronic idiopathic neutropenia Other neutropenia documented in this encounter Care Teams Hris Manager Relationship Specialty Start Date End Date Deborah Quiroga, JORDAN WORKER PCP - General Family Medicine 03/24/16 02/04/23 documented as of this encounter
--- OUTSIDE RECORDS SUMMARY | 2024-05-09 15:25 | XMS_ITS | Encounter Summary ---
Author Organization [facility] Address [facility] [place] [address] Care Team Providers Care Welder Metal Fab Name Role Phone Ashley Quirogan Cornelius ANURAG Primary Care Provider [phone] Encounter Details Date Type Department Care Team (Late st Contact Info) Description 08/11/2016 Telephone Hematology [place] [phone] Markel Borjas MD [facility] DR HEMATOLOGY [place] [address] Social History Tobacco Use Types Packs/Day Years [...] [facility] Hemat[facility] Oncology [address] [place] [address] 05/12/2024 10:00 AM EDT Office Visit Hematology [place] [address] Markel Borjas MD [facility] DR HEMATOLOGY [place] [address] 03/01/2025 4:15 PM EDT Office Visit Dermatology at [place] [address] [facility] [place] [address] Marek Bonilla MD [address], [place] [address] documented as of this encounter Visit Diagnoses Not on filedocumented in this encounter Care Teams Welder Metal Fab Relationship Specialty Start Date End Date Deborah Quiroga APRN PCP - General Family Medicine 03/24/16 02/04/23 documented as of this encounter
--- OUTSIDE RECORDS SUMMARY | 2024-05-09 15:25 | XMS_ITS | Encounter Summary ---
Author Organization [facility] Address [facility] [place] [address] Care Team Providers Care Supervisor Ski Production Name Role Phone Deborah Quiroga ANURAG Primary Care Provider [phone] Encounter Details Date Type Department Care Team (Late st Contact Info) Description 07/22/2016 External Results Hematology [place] [phone] Alexandrea Greenwood RN Neutropenia, unspecified type Social [...] 9:00 AM EDT Laboratory Appointment Lab at [facility] Hematology Oncology [address] [place] [address] 05/12/2024 10:00 AM EDT Office Visit Hematology [place] [address] Markel Borjas MD [facility] HEMATOLOGY [place] [address] 03/01/2025 4:15 PM EDT Office Visit Dermatology at [address] [address] Marek Bonilla MD [address], [place] [address] documented as of this encounter Procedures Procedure Name Priority Date/Time Associated Diagnosis Comments COPPER, SERUM Routine 07/20/2016 10:30 AM EST Neutropenia, unspecified type CMV PCR, QUANTITATIVE Routine 07/20/2016 10:30 AM EST Neutropenia, unspecified type MONONUCLEOSIS SCREEN (APD/JEANNINE/[facility]) Routine 07/20/2016 10:30 AM EST Neutropenia, unspecified type CBC (WITH DIFF) Routine 07/20/2016 10:30 AM EST Neutropenia, unspecified type documented in this encounter Results * Copper, serum (07/20/2016 10:30 AM EST) Copper (NOVEMBER) 1.09 0.75 - 1.45 EXTERNAL LAB Blood specimen (specimen) 07/20/2016 10:30 AM EST Markel Borjas MD LAB SEND OUT ORDER JODIE Performing Organization Address City/[facility]/ZIP Co de Phone Number EXTERNAL LAB * CMV PCR, Quantitative (07/20/2016 10:30 AM EST) CMV PCR,Quantitati ve undetected EXTERNAL LAB Blood specimen (specimen) 07/20/2016 10:30 AM EST Markel Borjas MD MOLECULAR ORDERABL ES Performing Organization Address City/[facility]/ZIP Co de Phone Number EXTERNAL LAB * [...] documented in this encounter Care Teams Supervisor Ski Production Relationship Specialty Start Date End Date Deborah Quiroga, ACCOUNT MANAGER PCP - General Family Medicine 03/24/16 02/04/23 documented as of this encounter
--- OUTSIDE RECORDS SUMMARY | 2024-05-09 15:25 | XMS_ITS | Encounter Summary ---
Author Organization [facility] Address [facility] [place] [address] Care Team Providers Care Bulb Sorter Name Role Phone Deborah Quiroga ANURAG Primary Care Provider [phone] Encounter Details Date Type Department Care Team (Late st Contact Info) Description 06/16/2016 Orders Only Hematology [place] [phone] Nitesh Pina Jr., MD [facility] DR HEMATOLOGY [place] [address] Cyclical neutropenia Social History Tobacco Use Types [...] [facility] Hematology Oncology [address] [place] [address] 05/12/2024 10:00 AM EDT Office Visit Hematology [place] [phone] Markel Borjas MD [facility] DR HEMATOLOGY [place] [address] 03/01/2025 4:15 PM EDT Office Visit Dermatology at [place] [address] [facility] [place] [address] Marek Bonilla MD [address], [place] [address] documented as of this encounter Visit Diagnoses Diagnosis 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
--- OUTSIDE RECORDS SUMMARY | 2024-05-09 15:25 | XMS_ITS | Encounter Summary ---
Author Organization [facility] Address [facility] [place] [address] Care Team Providers Care All Round Butcher Name Role Phone Deborah Quiroga APRN Primary Care Provider [phone] Reason for Visit * Reason Comments Schedule Office Case * Consultation (Routine) - Closed Specialty Diagnoses / Procedures Referred By Contac t Referred To Contact Hematology and Oncology Diagnoses Leukopenia Neutropenia LEUKOPENIA W/NEUTROPENIA Procedures TC PEGFILGRASTIM, 6MG, INJECTION LEUKOPENIA W/NEUTROPENIA Alirio Esparza MD [facility] [place] [address] Mario Alberto Ramos Jr., MD [facility] DR [place] [address] Referral ID Status Reason Start Date Expiration Date V isits Requested Visits Authorized [id number] Closed Consult, Test & Treat 07/17/2016 07/17/2017 1 1 Encounter Details Date Type Department Care Team (Late st Contact Info) Description 06/09/2016 3:00 PM EST Office Visit Hematology [place] [address] Mario Alberto Ramos Jr., MD [facility] [place] [address] Cyclical neutropenia Social History Tobacco Use Types [...] PM EST Hematology Outpatient Clinic [facility] Hematology Outpatient Consult Note CC: [...] Unknown See Comment Flow Cytometry Report Unknown [id number] ... HematoPathology: Flow Cytometry DIAGNOSIS 1. No [...] above for review and discussion of findings. Mari oAlberto Ramos Jr., M.D. Section of Hematology/Oncology CC: [...] [facility] Hematology Oncology [address] [place] [address] 05/12/2024 10:00 AM EDT Office Visit Hematology [place] [address] Markel Borjas MD [facility] DR [place] [address] 03/01/2025 4:15 PM EDT Office Visit Dermatology at [place] [address] [phone] Marek Bonilla MD [address], [place] [address] documented as of this encounter Procedures Procedure [...] (06/09/2016 4:53 PM EST) Flow Cytometry Report [id number] ?Location: 3K The signing pathologist has (i) [...] by the Clinical Flow Cytometry Laboratory at [facility]. It has not been cleared or [...] high complexity clinical laboratory testing. SPECIMEN PROCESSING [id number] Cells for immunophenotypic analysis were derived from peripheral blood. ??CD45 vs side scatter gating was utilized to identify a lymphoid analysis region that comprises approximately 49-51% of all cells. The following markers were assessed: CD2, CD3, CD4, CD5, CD7, CD8, CD10, CD16, CD19, CD45, CD56, CD57, kappa light chain, and lambda light chain. CLINICAL INFORMATION 60 yo female with neutropenia. LGL panel requested. [facility] 06/09/2016 4:53 PM EST Mario Alberto Ramos Jr., MD PATHOLOGY/CYTOLOGY O RDERABLES Performing Organization Address City/[facility]/ZIP Co de Phone Number [facility] [place] [address] * Scan, Peripheral Blood (06/09/2016 4:53 PM EST) Plat estimate Normal [facility] RBC Morphology Normal [facility] Blood specimen (specimen) 06/09/2016 4:53 PM EST 06/09/2016 5:00 PM EST Narrative Resulting Agency Comment Spec In Lab Mario Alberto Ramos Jr., MD HEMATOLOGY ORDERABLE S Performing Organization Address City/[facility]/ZIP Co de Phone Number [facility] [place] [address] * (ABNORMAL) Differential, Automated (06/09/2016 4:53 PM EST) Pathologist [facility] Neutrophil % 27.7 % [facility] Neutrophil Absolute 0.48(Crit ical) 1.70 - 6.10 x10(3)/mc L [facility] Comment: Matches Previous Results.. This result has been called to NOT CALLED by Jesusita Argueta on 06 09 2016 at 1817, and has not been read back. MATCHES PREVIOUS RESULTS Lymph % 57.2 % [facility] Lymphocytes Abs 1.0 0.9 - 3.2 x10(3)/ L [facility] Monocyte % 13.3 % [facility] Monocyte Abs 0.2(L) 0.3 - 0.9 x10(3)/[facility] Eos % 0.6 % [facility] Eosinophils Abs 0.0 0.0 - 0.4 x10(3)/[facility] Basophil % 1.2 % [facility] Baso Absolute 0.0 0.0 - 0.1 x10(3)/[facility] Immature Gran % 0.00 % [facility] Comment: Immature granulocytes(IG's)percentage and absolute count will include metamyelocytes, myelocytes, and promyelocytes. Blood smears from CBCs yielding IG's will be scanned manually for concordance. If this scan disagrees with the automated IG or if promyelocytes are noted, a manual differential will be performed. Immature Gran Absolute 0.00 0.00 - 0.04 x10(3)/[facility] Blood specimen (specimen) 06/09/2016 4:53 PM EST 06/09/2016 5:00 PM EST Narrative Resulting Agency Comment Spec In Lab Mario Alberto Ramos Jr., MD HEMATOLOGY ORDERABLE S Performing Organization Address City/State/[facility] Co de Phone Number [facility] [place] [address] * (ABNORMAL) Hemogram (06/09/2016 4:53 PM EST) White Blood Cell 1.7(Criti gabrielle) 4.0 - 9.5 x10(3)/[facility] Red Blood Cell 3.92(L) 4.00 - 5.21 x10(6)/[facility] Hemoglobin 12.4 11.7 - 15.5 gm/dL [facility] Hematocrit 36.7 35.7 - 45.8 % [facility] Mean Cell Volume 93.6 82.6 - 94.[address] [facility] Mean Cell Hemoglobin 31.6 27.1 - 32.[address] [facility] Mean Cell Hemoglobin Concentration 33.8 31.7 - 35.0 gm/dL [facility] Platelet 234 145 - 357 x10(3)/mc L [facility] RDW Standard Deviation 39.8 37.0 - 46.[address] [facility] RDW coefficient of variation 11.8 11.5 - 14.1 % [facility] Mean Platelet Volume 8.6 7.6 - 12.[address] [facility] NRBC% auto 0.0 % [facility] NRBC Absolute 0.000 0.000 - 0.000 x10(3)/mc L [facility] Blood specimen (specimen) 06/09/2016 4:53 PM EST 06/09/2016 5:00 PM EST Narrative Resulting Agency Comment Spec In Lab Mario Alberto Ramos Jr., MD HEMATOLOGY ORDERABLE S Performing Organization Address City/[facility]/ZIP Co de Phone Number [facility] [place] [address] * Immunophenotyping Flow Cytometry (06/09/2016 4:53 PM EST) Immunophenotyping Flow See Comment [facility] Comment: When completed by the Pathologist, the Flow Cytometry Report ([id number]) will display under the Pathology Results section within [facility]. 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
--- OUTSIDE RECORDS SUMMARY | 2024-05-09 15:25 | XMS_ITS | Encounter Summary ---
Author Organization [facility] Address [facility] [place] [address] Care Team Providers Care Shoe Singer Name Role Phone Deborah Quiroga APRN Primary Care Provider Encounter Details Date Type Department Care Team (Late st Contact Info) Description 07/17/2016 9:00 AM EST Office Visit [place] [address] Markel Borjas MD [facility] [address] [place] [address] Neutropenia, unspecified type Social History Tobacco Use [...] TOUCH PREP, CLOT SECTION, CORE ??BIOPSY); [OSR# [id number], COLLECTED 06/23/2016, 19 SLIDES]: ?1. 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 Will consi kanwal talking to pt's core microarchitect about a switch from ACEI to ARB [...] the original note were not included. [facility] [address] Date: 07/17/16 Patient Name: Purnima Thacker : 1955 Diagnosis: neutropenia Referral to [site]: [facility] Orders: ? Labs: Fax results to . [x] Draw CBC, copper level, CMV PCR, mononucleosis screen on 07/20 Repeat CBC on 07/30 (to measure response of WBC after Neulasta) ? Growth factor: [x] Neulasta 6mg SQ injection x 1 on 07/20/2016 Signature: Markel Borjas MD beeper # 2015 documented in this encounter Plan of Treatment Upcoming Encounters Date Type Department Care Team (Late st Contact Info) Description 05/12/2024 9:00 AM EDT Laboratory Appointment Lab at [facility] Hematology Oncology [address] [place] [address] 05/12/2024 10:00 AM EDT Office Visit [place] [phone] Markel Borjas MD [facility] [address] [place] [address] 03/01/2025 4:15 PM EDT Office Visit Dermatology at [address] [place] [address] Marek Bonilla MD [address], QUOC A DERMATOLOGY [place], [place] [address] documented as of this encounter Results * [...] MD HEMATOLOGY ORDERAB LES Performing Organization Address City/[facility]/ZIP Co de Phone Number EXTERNAL LAB * Mononucleosis Screen (07/20/2016 10:30 AM EST) [facility] Mononucleosis Screen neg neg - neg EXTERNAL LAB Blood specimen (specimen) 07/20/2016 10:30 AM EST Markel Borjas MD IMMUNOLOGY ORDERAB LES Performing Organization Address City/[facility]/ZIP Co de Phone Number EXTERNAL LAB * Copper, serum (07/20/2016 10:30 AM EST) Pathologist [facility] Copper (NOVEMBER) 1.09 0.75 - 1.45 EXTERNAL LAB Blood specimen (specimen) 07/20/2016 10:30 AM EST Markel Borjas MD LAB SEND OUT ORDER JODIE Performing Organization Address City/[facility]/ZIP Co de Phone Number EXTERNAL LAB * CMV PCR, Quantitative (07/20/2016 10:30 AM EST) [facility] CMV PCR,Quantitati ve undetected EXTERNAL LAB Blood specimen (specimen) 07/20/2016 10:30 AM EST Markel Borjas MD MOLECULAR ORDERABL ES Performing Organization Address City/[facility] Co de Phone Number EXTERNAL LAB * (ABNORMAL) CBC (with Diff) (07/20/2016 10:30 AM EST) White Blood Cell 1.61(A) 4.4 - 10.8 EXTERNAL LAB Hemoglobin 12.3 12.0 - 16.0 EXTERNAL LAB Hematocrit 37.2 36.0 - 46.0 EXTERNAL LAB Platelet 229 130 - 400 EXTERNAL LAB Blood specimen (specimen) 07/20/2016 10:30 AM EST Markel Borjas MD HEMATOLOGY ORDERAB LES Performing Organization Address [facility] de Phone Number EXTERNAL LAB documented in this encounter Visit Diagnoses Diagnosis Neutropenia, unspecified type Chronic idiopathic neutropenia Other neutropenia documented in this encounter Care Teams Shoe Singer Relationship Specialty Start Date End Date Deborah Quiroga, DIRECTOR SPECIAL EDUCATION PCP - General Family Medicine 03/24/16 02/04/23 documented as of this encounter
--- OUTSIDE RECORDS SUMMARY | 2024-05-09 15:25 | XMS_ITS | Encounter Summary ---
Author Organization [facility] Address [facility] [place] [address] Care Team Providers Care Spinning Room Worker Name Role Phone Deborah Quiroga ANURAG Primary Care Provider [phone] Encounter Details Date Type Department Care Team (Late st Contact Info) Description 06/09/2016 Orders Only [place] [phone] Nitesh Pina Jr., MD [facility] DR HEMATOLOGY [place] [address] Cyclical neutropenia Social History Tobacco Use Types [...] [facility] Hemat[facility] Oncology [address] [place] [address] 05/12/2024 10:00 AM EDT Office Visit [place] [phone] [facility] [address] HEMATOLOGY [place] [address] 03/01/2025 4:15 PM EDT Office Visit Dermatology at [place] [address] [place] [address] Marek Bonilla MD [address], [place] [address] documented as of this encounter Results * Immunophenotyping Flow Cytometry (06/09/2016 4:53 PM EST) Immunophenotyping Flow See Comment [facility] Comment: When completed by the Pathologist, the Flow Cytometry Report ([id number]) will display under the Pathology Results section within [facility]. Specimen of unknown material (specimen) 06/09/2016 4:53 PM EST 06/09/2016 5:00 PM EST Narrative Resulting Agency Comment Spec In Lab Nitesh Pina Jr., MD HEMATOLOGY ORDERABLE S Performing Organization Address City/State/[facility] Co de Phone Number 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
--- OUTSIDE RECORDS SUMMARY | 2024-05-09 15:25 | XMS_ITS | Encounter Summary ---
Author Organization [facility] [place] [address] Care Team Providers Care Shipping Weigher Name Role Phone Ashley Quirogazac Shields APRN Primary Care Provider [phone] Encounter Details Date Type Department Care Team (Late st Contact Info) Description 07/03/2016 External Results Hematology [place] [phone] Matthew Cervantes, DO [address] [place] [address] Social History Tobacco Use Types Packs/Day Years [...] at [facility] [place] Oncology [address] [place] [address] 05/12/2024 10:00 AM EDT Office Visit Hematology [place] [phone] Markel Borjas MD [facility] DR [place] [address] 03/01/2025 4:15 PM EDT Office Visit Dermatology at [place] [address] [place] [phone] Marek Bonilla MD [address], [place] [address] documented as of this encounter Procedures Procedure Name Priority Date/Time Associated Diagnosis Comments BONE MARROW ASPIRATION PERFO RMED WITH BONE MARRROW BIOPSY Routine 06/28/2016 documented in this encounter Results * BONE MARROW ASPIRATION PREFORMED WITH BONE MARRROW BIOPSY (06/28/2016) Matthew Cervantes DO GENERAL SURGI DANIEL ORDERABLES documented in this encounter Visit Diagnoses Not on filedocumented in this encounter Care Teams Shipping Weigher Relationship Specialty Start Date End Date Deborah Quiroga APRN PCP - General Family Medicine 03/24/16 02/04/23 documented as of this encounter
--- OUTSIDE RECORDS SUMMARY | 2024-05-09 15:25 | XMS_ITS | Encounter Summary ---
Author Organization [facility] Address [facility] [place] [address] Care Team Providers Care Mixer Attendant Name Role Phone Deborah Quiroga ANURAG Primary Care Provider [phone] Encounter Details Date Type Department Care Team (Late st Contact Info) Description 07/31/2016 External Results Hematology [place] [phone] Alexandrea Greenwood RN Neutropenia, unspecified type Social [...] [facility] [place] [place]emat[place] Oncology [address] [place] [address] 05/12/2024 10:00 AM EDT Office Visit Hematology [place] [address] Markel Borjas MD [facility] [place] [address] 03/01/2025 4:15 PM EDT Office Visit Dermatology at [address] [address] Marek Bonilla MD [address] [place] [address] RD, [place] [address] documented as of this encounter Procedures Procedure [...] neutropenia documented in this encounter Care Teams Mixer Attendant Relationship Specialty Start Date End Date Deborah Quiroga APRN PCP - General Family Medicine 03/24/16 02/04/23 documented as of this encounter
--- OUTSIDE RECORDS SUMMARY | 2024-05-09 15:25 | XMS_ITS | Encounter Summary ---
Author Organization [facility] [place] [address] Care Team Providers Care Mobile Patrol Officer Name Role Phone Junaid, Deborah Shields APRN Primary Care Provider [phone] Encounter Details Date Type Department Care Team (Late st Contact Info) Description 05/19/2016 10:00 AM EDT Office [place] [phone] Alirio Esparza MD Nonrheumatic aortic valve stenosis [...] [facility] Hematology Oncology [address] [place] [address] 05/12/2024 10:00 AM EDT Office Visit Hematology [place] [address] Markel Borjas MD [facility] [address] [place] [address] 03/01/2025 4:15 PM EDT Office Visit Dermatology at [place] [address] [facility] [place] [phone] Marek Bonilla MD [address] [facility], [place] [address] documented as of this encounter Results * [...] (Bezet) 448 ms MUSE SYSTEM Calculated P [place] 37 degrees MUSE SYSTEM Calculated R [place] 31 degrees MUSE SYSTEM Calculated T [place] 25 degrees MUSE SYSTEM INTERPRETATION Normal sinus rhythm Normal ECG No previous ECGs available Confirmed by MD Becca, Deangelo ([id number]) on 05/19/2016 5:23:33 PM MUSE SYSTEM 05/19/2016 11:4 3 AM EDT 05/19/2016 5:23 PM EDT Alirio Esparza MD ECG ORDERABLES MUSE SYSTEM * Basic Metabolic Panel (non-fasting) (05/19/2016 11:32 AM EDT) Glucose 86 65 - 199 mg/dL [facility] Comment:Diabetes: >=200 mg/d L plus symptoms Blood Urea Nitrogen 13 8 - 18 mg/dL [facility] Creatinine 0.95 0.70 - 1.20 mg/dL [facility] Comment: Please note that the pediatric reference intervals supplied above were not validated at [facility]. Results from pediatric patients should be [...] the following links into your internet browser. [email or web address] Blood specimen (specimen) 05/19/2016 11:32 AM EDT 05/19/2016 11:41 AM EDT Narrative Resulting Agency Comment Spec In Lab Alirio Esparza MD CHEMISTRY ORDERABLE S [facility] [place] [address] documented in this encounter Visit Diagnoses Diagnosis Nonrheumatic aortic valve stenosis Aortic valve disorders Nonrheumatic aortic valve stenosis Aortic valve disorders Chronic idiopathic neutropenia Other neutropenia documented in this encounter Care Teams Mobile Patrol Officer Relationship Specialty Start Date End Date Deborah Quiroga APRN PCP - General Family Medicine 03/24/16 02/04/23 documented as of this encounter
--- OUTSIDE RECORDS SUMMARY | 2024-05-09 15:25 | XMS_ITS | Encounter Summary ---
Author Organization [facility] Address [facility] [place] [address] Care Team Providers Care Board Member Name Role Phone [place] Quirogan Cornelius ANURAG Primary Care Provider [phone] Encounter Details Date Type Department Care Team (Late st Contact Info) Description 07/31/2016 Orders Only [place] [address] Alexandrea Greenwood RN Neutropenia, unspecified type Social [...] [facility] Hematology Oncology [address] [place] [address] 05/12/2024 10:00 AM EDT Office Visit [place] [address] Markel Borjas MD [facility] [place] [address] 03/01/2025 4:15 PM EDT Office Visit Dermatology at [address] [address] Marek Bonilla MD [address], [place] [address] documented as of this encounter Results * [...] neutropenia documented in this encounter Care Teams Board Member Relationship Specialty Start Date End Date Deborah Quiroga APRN PCP - General Family Medicine 03/24/16 02/04/23 documented as of this encounter
--- OUTSIDE RECORDS SUMMARY | 2024-05-09 15:25 | XMS_ITS | Encounter Summary ---
[place] [address] Care Team Providers Care Insurance Sales Assistant Name Role Phone JunaidDeborah APRN Primary Care Provider [phone] Reason for Visit * Reason Onset Date Comments Labs Only 09/16/2016 Encounter Details Date Type Department Care Team (Late st Contact Info) Description 09/16/2016 Telephone Hematology [place] [address] Alexandrea Greenwood, RN Labs Only Social History [...] 09/16/2016 11:09 AM EST Message received from national secretary: Purnima is having her Neulasta done today at [facility]. ??She is wondering if we want to do a CBC prior to the injection? [phone] Borjas: CBC is fine RN spoke with Swapna at [facility] who confirms they can draw CBC on pt today, RN faxed CBC w/diff to [facility] lab at [phone] RN relayed to pt that CBC ordered had been faxed to [facility], pt will have CBC drawn today prior to neulasta injection. documented in this encounter Plan of Treatment Upcoming Encounters Date Type Department Care Team (Late st Contact Info) Description 05/12/2024 9:00 AM EDT Laboratory Appointment Lab at [facility] Hematology Oncology [address] [place] [address] 05/12/2024 10:00 AM EDT Office Visit Hematology [place] [address] Markel Borjas MD [facility] [address] [place] [address] 03/01/2025 4:15 PM EDT Office Visit Dermatology at [place] [address] [place] [address] Marek Bonilla MD [address] [facility] [place] [address] documented as of this encounter Results * [...] documented in this encounter Care Teams Insurance Sales Assistant Relationship Specialty Start Date End Date Deborah Quiroga APRN PCP - General Family Medicine 03/24/16 02/04/23 documented as of this encounter
--- OUTSIDE RECORDS SUMMARY | 2024-05-09 15:25 | XMS_ITS | Encounter Summary ---
[place] [address] Care Team Providers Care Protection Specialist Name Role Phone [place] Quirogan Cornelius ANURAG Primary Care Provider [phone] Reason for Visit * Reason Onset Date Comments Medical Care Coordination 09/14/2016 Encounter Details Date Type Department Care Team (Late st Contact Info) Description 09/14/2016 Telephone Hematology [place] [phone] Alexandrea Greenwood RN Medical Care Coordination Social [...] 09/14/2016 9:10 AM EST Message received from alumnae secretary: Injection/Infusion Referral Call placed to [facility] Infusion Room Spoke charis Bragg. Services to be provided for pt are: Miles 09/16/16 Mahsa confirmed they would provide services to pt and would contact with appointment time. Pt aware to expect the phone call ??orders faxed to [phone]). documented in this encounter Plan of Treatment Upcoming Encounters Date Type Department Care Team (Late st Contact Info) Description 05/12/2024 9:00 AM EDT Laboratory Appointment Lab at [facility] Hematology Oncology [address] [place] [address] 05/12/2024 10:00 AM EDT Office Visit Hematology [place] [address] Markel Borjas MD [facility] [address] [place] [address] 03/01/2025 4:15 PM EDT Office Visit Dermatology at [place] [address] [place] [address] Marek Bonilla MD [address], [place] [address] documented as of this encounter Visit Diagnoses Not on filedocumented in this encounter Care Teams Protection Specialist Relationship Specialty Start Date End Date Deborah Quiroga APRN PCP - General Family Medicine 03/24/16 02/04/23 documented as of this encounter
--- OUTSIDE RECORDS SUMMARY | 2024-05-09 15:25 | XMS_ITS | Encounter Summary ---
Author Organization [facility] [address] Care Team Providers Care Doll Wig Maker Name Role Phone Deborah Quiroga APRN Primary Care Provider [phone] Encounter Details Date Type Department Care Team (Late st Contact Info) Description 08/18/2016 4:20 PM EST Clinical Support [place] [phone] Social History Tobacco Use Types Packs/Day Years [...] [facility] [place] [address] [place] [address] 05/12/2024 10:00 AM EDT Office Visit Hematology [place] [address] Markel Borjas MD [facility] [address] [place] [address] 03/01/2025 4:15 PM EDT Office Visit Dermatology at [place] [address] [place] [address] Marek Bonilla MD [address], [place] [address] documented as of this encounter Visit Diagnoses Not on filedocumented in this encounter Care Teams Doll Wig Maker Relationship Specialty Start Date End Date Deborah Quiroga APRN PCP - General Family Medicine 03/24/16 02/04/23 documented as of this encounter
--- OUTSIDE RECORDS SUMMARY | 2024-05-09 15:25 | XMS_ITS | Encounter Summary ---
[place] [address] Care Team Providers Care Air Hammer Stripper Name Role Phone Deborah Quiroga ANURAG Primary Care Provider [phone] Encounter Details Date Type Department Care Team (Late st Contact Info) Description 09/11/2016 Orders Only Hematology [place] [address] Alexandrea Greenwood RN Social History [...] included. N [facility] [phone] Date: 09/11/16 Patient Name: Purnima Thacker : 1955 Diagnosis: Neutropenia Referral to [site]: [facility] Orders: ? Growth factor: [x] Neulasta 6mg SQ injection x 1 on 09/16/16 Signature: Markel Borjas MD beeper # [id number] Co-signature [if needed]: documented in this encounter Plan of Treatment Upcoming Encounters Date Type Department Care Team (Late st Contact Info) Description 05/12/2024 9:00 AM EDT Laboratory Appointment Lab at [facility] Hematology Oncology [address] [place] [address] 05/12/2024 10:00 AM EDT Office Visit Hematology [place] [address] Markel Borjas MD [facility] [address] [place] [address] 03/01/2025 4:15 PM EDT Office Visit Dermatology at [place] [address] [facility] [place] [address] Marek Bonilla MD [address] [address], [place] [address] documented as of this encounter Procedures Procedure Name Priority Date/Time Associated Diagnosis Comments TRANSESOPHAGEAL ECHOCARDIOGRAM (GAVINO) Routine 09/22/2016 documented in this encounter Results * Transesophageal Echocardiogram (GAVINO) (09/22/2016) Anatomical Region Laterality Modality Other 09/22/2016 Narrative 09/22/2016 8:30 AM EST Procedure: ?Transesophageal Echocardiogram Patient: ?ANDREW ECHOLS M ? (Age): 1955(61y) Med Rec#: ? [id number] ?Sex: ?M ? Site Loc: ? [facility] ?Ht / Wt: ??(cm)/ (kg) ? Pt. Loc: ?OR ? Study Date: ?? 09/21/2016 ?Pt. Type: Tape: ? Referring: Alirio Francisco Reading: Henrik Yarbrough ([id number]) Support Team Member: Jacobo Patel ([id number]) Interpreting Fellow: Jacobo Patel ([id number]) Diagnosis: *Aortic valve disorders (424.1) CPT Codes: *Echo GAVINO Full (43487) Indication: ?? AVR for severe Rhythm: ? [...] ? Mid-Inferior ?Normal ? Mid-Inferoseptal ?Normal ? [place]-Septal ? Normal ? [place]-Anterior ? Normal ? [place]-Lateral ?Normal ? [place]-Inferior ? Normal ? [place]-Tip ?Normal ? This report has been electronically signed by: Henrik Yarbrough M.D. ? 09/22/2016 08:30:41 Images reviewed and interpretation verified [facility] Procedure Note Henrik Yarbrough MD - 09/22/2016 Procedure: Transesophageal Echocardiogram Patient: ANDREW Mejias (Age): 1955(61y) Med Rec#: [id number] Sex: M Site Loc: [facility] Ht / Wt: (cm)/ (kg) Pt. Loc: OR Study Date: 09/21/2016 Pt. Type: Tape: Referring: Alirio Francisco Reading: Henrik Yarbrough ([id number]) Support Team Member: Jacobo Patel ([id number]) Interpreting Fellow: Jacobo Patel ([id number]) Diagnosis: *Aortic valve disorders (424.1) CPT Codes: *Echo GAVINO Full (87450) Indication: AVR for severe Rhythm: Sinus SUMMARY: [...] Normal Mid-Posterolateral Normal Mid-Inferior Normal Mid-Inferoseptal Normal [place]-Septal Normal [place]-Anterior Normal [place]-Lateral Normal [place]-Inferior Normal [place]-Tip Normal This report has been electronically signed by: Henrik Yarbrough M.D. 09/22/2016 08:30:41 Images reviewed and interpretation verified [facility] Unknown ECHO ORDERABLES documented in this encounter Visit Diagnoses Not on filedocumented in this encounter Care Teams Air Hammer Stripper Relationship Specialty Start Date End Date Deborah Quiroga APRN PCP - General Family Medicine 03/24/16 02/04/23 documented as of this encounter
--- OUTSIDE RECORDS SUMMARY | 2024-05-09 15:26 | XMS_ITS | Encounter Summary ---
[place] [address] Care Team Providers Care General Operator Name Role Phone Jerel Sofia Garcia APRN Primary Care Provider [phone] Encounter Details Date Type Department Care Team (Late st Contact Info) Description 11/12/2014 8:10 AM EDT - 11/12/2014 11:59 PM EDT Hospital [place] [phone] CLINIC, DR ABE Burrell, Antelmo Porter MD [address] [place] [address] Discharge Disposition: Home Social History Tobacco Use [...] 9:00 AM EDT Laboratory Appointment Lab at [facility] Hematology Oncology [address] [place] [address] 05/12/2024 10:00 AM EDT Office Visit [place]ematology [place] [address] Markel Borjas MD [facility] DR [place] [address] 03/01/2025 4:15 PM EDT Office Visit Dermatology at [place] [address] [facility] [place] [address] Marek Bonilla MD [address] [facility] [address], [place] [address] documented as of this encounter Procedures Procedure [...] mLs documented in this encounter Care Teams General Operator Relationship Specialty Start Date End Date Sofia Beltrán APRN [address] [place] [address] PCP - General 11/12/14 03/23/16 documented as of this encounter
--- OUTSIDE RECORDS SUMMARY | 2024-05-09 15:26 | XMS_ITS | Encounter Summary ---
Author Organization [facility] [place] [address] Care Team Providers Care Assistant Director Of Security Name Role Phone Danni Laird HIGH SPEED PRINTER OPERATOR Primary Care Provider [phone] Encounter Details Date Type Department Care Team (Late st Contact Info) Description 01/23/2014 Orders Only Cardiology at [address] [phone] Lee Kincaid MD [facility] [place] [address] SOB (shortness of breath) (Primary Dx) Social [...] at [facility] [place]ematology Oncology [address] [place] [id number] 05/12/2024 10:00 AM EDT Office Visit [place] [phone] Markel Borjas MD [facility] [address] [place] [address] 03/01/2025 4:15 PM EDT Office Visit Dermatology at [place] [address] [place] [address] Marek Bonilla MD [address], [place] [address] documented as of this encounter Results * Echocardiogram Transthoracic(Leb) (01/23/2014 3:17 PM EDT) EF 50 [facility] SYSTEM Anatomical Region Laterality Modality Other 01/23/2014 Narrative 01/23/2014 4:35 PM EDT Procedure: ? Transthoracic Echocardiogram Patient: ? ANDREW ECHOLS M ?(Age): 1955(58) Med Rec#: ?[id number] ? Sex: ?F ? [place] Loc[place] ? Ht / Wt: ??158(cm)/93(kg) Pt. Loc: ? Adult Floor ?BSA: ?2.02 Study Date: ?01/23/2014 ? Pt. Type: Inpatient Tape: ? Referring: Lee Kincaid ([id number]) Referring: ANNALISA Bean Snapper: Miguel Beverly Diagnosis:CPT Code(s): ??Echo Full (49377), ??Spectral Doppler (23104), Color Doppler (51343), Indication(s): ??Aortic stenosis Rhythm: Sinus HR ?BP [...] ? Mid-Inferior ?Hypokinetic ? Mid-Inferoseptal ?Hypokinetic ? [place]-Septal ? Hypokinetic ? [place]-Anterior ? Hypokinetic ? [place]-Lateral ?Hypokinetic ? [place]-Inferior ? Hypokinetic ? [place]-Tip ?Hypokinetic ? Chambers ?Value ?Units (Range) ? [...] 01/23/2014 16:34:37 Images reviewed and interpretation verified [facility] Cardiac Ultrasound Laboratory Procedure Note Lee Kincaid MD - 01/23/2014 Procedure: Transthoracic Echocardiogram Patient: ANDREW Mejias (Age): 1955(58) Med Rec#: [id number] Sex: F Site Loc: [facility] Ht / Wt: 158(cm)/93(kg) Pt. Loc: Adult Floor BSA: 2.02 Study Date: 01/23/2014 Pt. Type: Inpatient Tape: Referring: Lee Kincaid ([id number]) Referring: ANNALISA Bean Snapper: Miguel Beverly Diagnosis:CPT Code(s): Echo Full (83477), Spectral Doppler (56939), Color Doppler (96157), Indication(s): Aortic stenosis Rhythm: Sinus HR BP [...] Hypokinetic Mid-Posterolateral Hypokinetic Mid-Inferior Hypokinetic Mid-Inferoseptal Hypokinetic [place]-Septal Hypokinetic [place]-Anterior Hypokinetic [place]-Lateral Hypokinetic [place]-Inferior Hypokinetic [place]-Tip Hypokinetic Chambers Value Units (Range) IVSd 2D [...] 01/23/2014 16:34:37 Images reviewed and interpretation verified [facility]iac [facility] Lee Kincaid MD ECHO ORDERABLES documented in this encounter Visit Diagnoses Diagnosis SOB (shortness of breath)- Primary Shortness of breath Chronic idiopathic neutropenia Other neutropenia documented in this encounter Care Teams Assistant Director Of Security Relationship Specialty Start Date End Date Danni Laird APRN [address] [place] [address] PCP - General 01/23/14 11/11/14 documented as of this encounter
--- OUTSIDE RECORDS SUMMARY | 2024-05-09 15:26 | XMS_ITS | Encounter Summary ---
Author Organization [facility] Address [facility] [place] [address] Care Team Providers Care Management Professionals Name Role Phone EitanMagnusDanni ANURAG Primary Care Provider [phone] Encounter Details Date Type Department Care Team (Latest Contact Info) Description 01/23/2014 7:45 AM EDT - 01/23/2014 5:50 PM EDT Hospital Encounter [place] [address] Alan Jacobson MD [facility] [place] [address] Cardiomyopathy; SOB (shortness of breath) Discharge Disposition: [...] by your doctor, do not take any dvux-onq-zjtlbts medicines or herbal preparations without first discussing this with your doctor or pharmacist. There is the possibility of side effect and interactions when these are combined. Follow up Care Who to Call with Questions or Problems If there are any questions or problems that you think might be related to your cardiac cath or angioplasty, contact the pharmacy sales representative working second hand by calling [facility] at . documented in this encounter [...] [facility] Hemat[facility] Oncology [address] [place] [address] 05/12/2024 10:00 AM EDT Office Visit Hematology [place] [address] Markel Borjas MD [facility] [address] HEMATOLOGY [place] [address] 03/01/2025 4:15 PM EDT Office Visit Dermatology at [place] [address] [facility] [place] [address] Marek Bonilla MD [address], [place] [address] documented as of this encounter Procedures Procedure [...] ANDREW ONESIMO M ?(Age): 1955(58) Med Rec#: ?[id number] ? Sex: ?F ? Site Loc: ?[facility] ? Ht / Wt: ??158(cm)/93(kg) Pt. Loc: ? Adult Floor ?BSA: ?2.02 Study Date: ?01/23/2014 ? Pt. Type: Inpatient Tape: ? Referring: Lee Kincaid ([id number]) Referring: ANNALISA Animal Caretaker Supervisor: Miguel Beverly Diagnosis:CPT Code(s): ??Echo Full (82065), ??Spectral Doppler (81335), Color Doppler (52389), Indication(s): ??Aortic stenosis Rhythm: Sinus HR ?BP [...] ? Mid-Inferior ?Hypokinetic ? Mid-Inferoseptal ?Hypokinetic ? [place]-Septal ? Hypokinetic ? [place]-Anterior ? Hypokinetic ? [place]-Lateral ?Hypokinetic ? [place]-Inferior ? Hypokinetic ? [place]-Tip ?Hypokinetic ? Chambers ?Value ?Units (Range) ? [...] 01/23/2014 16:34:37 Images reviewed and interpretation verified [facility] Cardiac Ultrasound Laboratory Procedure Note Lee Kincaid MD - 01/23/2014 Procedure: Transthoracic Echocardiogram Patient: ANDREW Mejias (Age): 1955(58) Med Rec#: [id number] Sex: F Site Loc: [facility] Ht / Wt: 158(cm)/93(kg) Pt. Loc: Adult Floor BSA: 2.02 Study Date: 01/23/2014 Pt. Type: Inpatient Tape: Referring: Lee Kincaid ([id number]) Referring: ANNALISA Animal Caretaker Supervisor: Miguel Beverly Diagnosis:CPT Code(s): Echo Full (16346), Spectral Doppler (91676), Color Doppler (88073), Indication(s): Aortic stenosis Rhythm: Sinus HR BP [...] Hypokinetic Mid-Posterolateral Hypokinetic Mid-Inferior Hypokinetic Mid-Inferoseptal Hypokinetic [place]-Septal Hypokinetic [place]-Anterior Hypokinetic [place]-Lateral Hypokinetic [place]-Inferior Hypokinetic [place]-Tip Hypokinetic Chambers Value Units (Range) IVSd 2D [...] 01/23/2014 16:34:37 Images reviewed and interpretation verified [facility] Cardiac Ultrasound Laboratory Lee Kincaid MD ECHO ORDERABLES documented in this encounter Visit Diagnoses Diagnosis Cardiomyopathy Other primary cardiomyopathies SOB (shortness of breath) Shortness of breath Chronic idiopathic neutropenia Other [...] Routine 1158 (Given - Provid er: Nitesh Stenr RN)1224 (Given - Provider: Nitesh Stern RN) [...] RN) documented in this encounter Care Teams Management Professionals Relationship Specialty Start Date End Date Danni Laird APRN [address] [place] [address] PCP - General 01/23/14 11/11/14 documented as of this encounter
--- OUTSIDE RECORDS SUMMARY | 2024-05-09 15:26 | XMS_ITS | Encounter Summary ---
[place] [address] Care Team Providers Care Staff Electronic Warfare Officer Name Role Phone Mitchell Wilkes MD Primary Care Provider [phone] Reason for Visit * Reason Onset Date Comments Other 01/18/2014 Encounter Details Date Type Department Care Team (Late st Contact Info) Description 01/18/2014 Telephone Cardiology at [address] [phone] Jesusita Garces Other Social History Tobacco Use [...] [facility] Hematology Oncology [address] [place] [address] 05/12/2024 10:00 AM EDT Office Visit [place]ematology [place] [address] Markel Borjas MD [facility] [address] HEMATOLOGY [place] [address] 03/01/2025 4:15 PM EDT Office Visit Dermatology at [place] [address] [place] [address] Marek Bonilla MD [address], [address] [place] [address] documented as of this encounter Visit Diagnoses Not on filedocumented in this encounter Care Teams Staff Electronic Warfare Officer Relationship Specialty Start Date End Date Mitchell Wilkes MD [facility] PCP - General 06/24/10 01/19/14 documented as of this encounter
--- OUTSIDE RECORDS SUMMARY | 2024-05-09 15:26 | XMS_ITS | Encounter Summary ---
Author Organization [facility] [place] [address] Care Team Providers Care Tractor Drill Operator Name Role Phone EitanDanni ANURAG Primary Care Provider [phone] Encounter Details Date Type Department Care Team (Late st Contact Info) Description 01/22/2014 Telephone Cardiology at [address] [phone] Cynthia Arrington LPN Social History Tobacco Use [...] LPN - 01/23/2014 2:39 PM EDT This personal lines underwriter did not receive a call back [...] [facility] Hematology Oncology [address] [place] [address] 05/12/2024 10:00 AM EDT Office Visit [place] [address] Markel Borjas MD [facility] [address] [place] [address] 03/01/2025 4:15 PM EDT Office Visit Dermatology at [place] [address] [facility] [place] [phone] Marek Bonilla MD [address], [place] Katherine [place] [address] documented as of this encounter Visit Diagnoses Not on filedocumented in this encounter Care Teams Tractor Drill Operator Relationship Specialty Start Date End Date Danni Laird APRN [address] [place] [address] PCP - General 01/23/14 11/11/14 documented as of this encounter
--- OUTSIDE RECORDS SUMMARY | 2024-05-09 15:26 | XMS_ITS | Encounter Summary ---
Author Organization [facility] [place] [address] Care Team Providers Care Marketing Project Coordinator Name Role Phone Eitan Danni ANURAG Primary Care Provider [phone] Encounter Details Date Type Department Care Team (Late st Contact Info) Description 01/23/2014 9:25 AM EDT - 01/23/2014 10:25 AM EDT Surgery [place] [address] Alan Jacobson MD [facility] [place] [address] CARDIAC CATHETERIZATION Social History Tobacco Use Types [...] by your doctor, do not take any zzjo-[id number]-[id number] medicines or herbal preparations without first discussing this with your doctor or pharmacist. There is the possibility of side effect and interactions when these are combined. Follow up Care Who to Call with Questions or Problems If there are any questions or problems that you think might be related to your cardiac cath or angioplasty, contact the clinical engineer special distribution clerk by calling [facility] at . [...] at [facility] Hematology Oncology [address] [place] [address] 05/12/2024 10:00 AM EDT Office Visit [place]ematology [place] [address] Markel Borjas MD [facility] [address] HEMATOLOGY [place] [address] 03/01/2025 4:15 PM EDT Office Visit Dermatology at [place] [address] [facility] [place] [address] Marek Bonilla MD [address], [place] [address] documented as of this encounter Procedures Procedure Name Priority Date/Time Associated Diagnosis Comments ECHOCARDIOGRAM TRANSTHORACIC Routine 01/23/2014 3:17 PM EDT SOB (shortness of breath) documented in this encounter Results * Echocardiogram Transthoracic(Leb) (01/23/2014 3:17 PM EDT) [facility] EF 50 [employer] SYSTEM Anatomical Region Laterality Modality Other 01/23/2014 Narrative 01/23/2014 4:35 PM EDT Procedure: ? Transthoracic Echocardiogram Patient: ? ANDREW ONESIMO M ?(Age): 1955(58) Med Rec#: ?[id number] ? Sex: ?F ? Site Loc: ?[facility] ? Ht / Wt: ??158(cm)/93(kg) Pt. Loc: ? Adult Floor ?BSA: ?2.02 Study Date: ?01/23/2014 ? Pt. Type: Inpatient Tape: ? Referring: Lee Kincaid ([id number]) Referring: ANNALISA Postal Delivery Officer: Miguel Beverly Diagnosis:CPT Code(s): ??Echo Full (24546), ??Spectral Doppler (07460), Color Doppler (06729), Indication(s): ??Aortic stenosis Rhythm: Sinus HR ?BP [...] ? Mid-Inferior ?Hypokinetic ? Mid-Inferoseptal ?Hypokinetic ? Dushore-Septal ? Hypokinetic ? Dushore-Anterior ? Hypokinetic ? Dushore-Lateral ?Hypokinetic ? Dushore-Inferior ? Hypokinetic ? D[place]ore-Tip ?Hypokinetic ? Chambers ?Value ?Units (Range) ? [...] Patient: ANDREW Mejias (Age): 1955(58) Med Rec#: [id number] Sex: F Site Loc: [facility] Ht / Wt: 158(cm)/93(kg) Pt. Loc: Adult Floor BSA: 2.02 Study Date: 01/23/2014 Pt. Type: Inpatient Tape: Referring: Lee Kincaid ([id number]) Referring: ANNALISA Postal Delivery Officer: Miguel Beverly Diagnosis:CPT Code(s): Echo Full (07228), Spectral Doppler (13153), Color Doppler (60474), Indication(s): Aortic stenosis Rhythm: Sinus HR BP [...] Hypokinetic Mid-Posterolateral Hypokinetic Mid-Inferior Hypokinetic Mid-Inferoseptal Hypokinetic Dushore-Septal Hypokinetic Dushore-Anterior Hypokinetic Dushore-Lateral Hypokinetic Dushore-Inferior Hypokinetic D[place]ore-Tip Hypokinetic Chambers Value Units (Range) IVSd 2D [...] Shortness of breath Cardiomyopathy Other primary cardiomyopathies Chronic idiopathic neutropenia Other neutropenia documented in [...] RN) documented in this encounter Care Teams Marketing Project Coordinator Relationship Specialty Start Date End Date Danni Laird APRN [address] [place] [address] PCP - General 01/23/14 11/11/14 documented as of this encounter
--- OUTSIDE RECORDS SUMMARY | 2024-05-09 15:26 | XMS_ITS | Encounter Summary ---
Author Organization [facility] Address [facility] [place] [address] Care Team Providers Care Metal Sorter Name Role Phone JunaidAshley hargrovezac Shields APRN Primary Care Provider [phone] Reason for Visit * Consultation (Urgent) - Closed Specialty Diagnoses / Procedures Referred By Contac t Referred To Contact Cardiac Surgery Diagnoses aortic stenosis, consideration for valve replacement Antelmo Burrell MD [address] [place] [address] Alirio Esparza MD [facility] [address] CARDIOTHORACIC [place] [address] Referral ID Status Reason Start Date Expiration Date V isits Requested Visits Authorized [id number] Closed Connection Center 03/04/2016 03/04/2017 1 1 Encounter Details Date Type Department Care Team (Late st Contact Info) Description 03/24/2016 10:40 AM EDT Office [place] [phone] Alirio Esparza MD Aortic valve stenosis, unspecified [...] This is a patient of [facility]. Mrs. Thacker is being sent for [...] 30 minute visit, 20 minutes were spent [id number] with the patient discussing aortic stenosis and valve replacement. documented in this encounter Plan of Treatment Upcoming Encounters Date Type Department Care Team (Late st Contact Info) Description 05/12/2024 9:00 AM EDT Laboratory Appointment Lab at [facility] Hematology Oncology [address] [place] [address] 05/12/2024 10:00 AM EDT Office Visit [place] [address] Markel Borjas MD [facility] [address] HEMATOLOGY [place] [address] 03/01/2025 4:15 PM EDT Office Visit Dermatology at [place] [address] [facility] [place] [phone] Marek Bonilla MD [address], [place] [address] documented as of this encounter Visit Diagnoses Diagnosis Aortic valve stenosis, unspecified etiology Chronic idiopathic neutropenia Other neutropenia documented in this encounter Care Teams Metal Sorter Relationship Specialty Start Date End Date Deborah Quiroga APRN PCP - General Family Medicine 03/24/16 02/04/23 documented as of this encounter
--- OUTSIDE RECORDS SUMMARY | 2024-05-09 15:26 | XMS_ITS | Encounter Summary ---
Author Organization [facility] [address] Care Team Providers Care Wind Site Manager Name Role Phone Mitchell Wilkes MD Primary Care Provider [phone] Encounter Details Date Type Department Care Team (Late st Contact Info) Description 01/19/2014 Orders Only Cardiology at [address] [phone] Chele Ranodlph PA [facility] [place] [address] Cardiomyopathy (Primary Dx) Social History Tobacco Use [...] [facility] Hematology Oncology [address] [place] [address] 05/12/2024 10:00 AM EDT Office Visit [place] [phone] Markel Borjas MD [facility] [address] HEMATOLOGY [place] [address] 03/01/2025 4:15 PM EDT Office Visit Dermatology at [place] [address] [place] [address] Marek Bonilla MD [address], [place] [address] documented as of this encounter Procedures Procedure [...] Other primary cardiomyopathies Cardiomyopathy Other primary cardiomyopathies Chronic idiopathic neutropenia Other neutropenia documented in this encounter Care Teams Wind Site Manager Relationship Specialty Start Date End Date Mitchell [facility]kes MD [facility] PCP - General 06/24/10 01/19/14 documented as of this encounter
[2024-05-11 14:10] VITALS: BP 116/55; PULSE 87
--- OUTSIDE RECORDS SUMMARY | 2024-05-11 14:36 | XMS_ITS | Encounter Summary ---
Author Organization [facility] Address [address] [place] [address] Care Team Providers Care National Sales Executive Name Role Phone Scott, Ashley WILLIAM Primary Care Provider [phone] Encounter Details Date Type Department Care Team (Late st Contact Info) Description 03/21/2024 Lab Requisition [facility] Pathology & Laboratory Medicine - [address] [address] Consuelo Guerrero, DO [address] [place], [place] [address] Encounter for other general examination Social History [...] 22:31 EDT [facility] BLOOD BANK Blood VENOUS BLOOD / Unknown 03/21/2024 13:00 EDT 03/21/2024 21:51 EDT Consuelo Guerrero DO BLOOD BANK TESTS [facility] BLOOD BANK [address] [place] [address] documented in this encounter Visit Diagnoses Diagnosis Encounter for other general examination documented in this encounter Care Teams National Sales Executive Relationship Specialty Start Date End Date Ashley Chavez ARNP [address] [place] [address] PCP - General 07/11/10 documented as of this encounter
--- OUTSIDE RECORDS SUMMARY | 2024-05-11 14:36 | XMS_ITS | Encounter Summary ---
Author Organization [facility] Address [address] [place] [address] Care Team Providers Care Soaking Room Operator Name Role Phone Scott Ashley WILLIAM Primary Care Provider [phone] Encounter Details Date Type Department Care Team (Late st Contact Info) Description 05/12/2019 Results Only [facility] [phone] Nadira Gregorio MD [address] [place] [phone] Social History Tobacco Use Types Packs/Day [...] ? PURNIMA THACKER ? Accession #: ? [id number] ? : ? 1955 (Age: 63) ??F ? Collect Date: ? 05/12/2019 ? Location: ? [facility] ? Receive Date: ? 05/12/2019 ? Provider: NADIRA GREGORIO MD Copy to: [employer] ? Final Pathologic Diagnosis: COLON, CECUM, POLYP, [...] (ASCP) 05/12/2019 6:08 PM End of Report [facility] 05/12/2019 16:0 3 EDT 05/12/2019 16:03 EDT Nadira Gregorio MD PATHOLOGY ORDERABLES [facility] [address] [place] [address] documented in this encounter Visit Diagnoses Not on filedocumented in this encounter Care Teams Soaking Room Operator Relationship Specialty Start Date End Date Ashley Chavez ARNP [address] [place] [address] PCP - General 07/11/10 documented as of this encounter
--- OUTSIDE RECORDS SUMMARY | 2024-05-11 14:36 | XMS_ITS | Encounter Summary ---
Author Organization [facility] Address [address] [place] [address] Care Team Providers Care Grinder Hand Name Role Phone Unavailable Primary Care Provider Unavailabl e Encounter Details Date Type Department Care Team (Late st Contact Info) Description 07/08/2010 10:55 EST - 07/08/2010 10:56 EST Hospital Encounter [facility] - Other [address] [place] [address] Ashley Chavez, WILLIAM [address] [place] [address] Discharge Disposition: Home or Self Care Social [...]
--- OUTSIDE RECORDS SUMMARY | 2024-05-11 14:36 | XMS_ITS | Encounter Summary ---
Author Organization [facility] Address [address] [place] [address] Care Team Providers Care Materials Planner Name Role Phone Ashley Chavez Primary Care Provider [phone] Encounter Details Date Type Department Care Team (Late st Contact Info) Description 12/17/2021 Lab Requisition [facility] Pathology & Laboratory Medicine - [address] [address] Outr Resulting Lab, Provider Social History Tobacco [...] Lyme Ab Negative Negative 12/18/2021 10:37 EDT [facility] Blood VENOUS BLOOD / Unknown 12/17/2021 13:30 EDT 12/17/2021 21:32 EDT Provider Outr Resulting Lab IMMUNOLOGY A ND SEROLOGY ORDERABLES Performing Organization Address [facility] Co de Phone Number [facility] [address] [place] [address] * (ABNORMAL) ANTI NUCLEAR AB (FRANCISCO), IFA (12/17/2021 13:30 EDT) FRANCISCO Interpretation Positive(A) Negative 12/18/2021 16:06 EDT [facility] Comment: For titers greater [...] Pattern 1 1:1280 Speckled 12/18/2021 16:06 EDT [facility] Blood VENOUS BLOOD / Unknown 12/17/2021 13:30 EDT 12/17/2021 21:32 EDT Narrative [facility] - 12/18/2021 16:06 EDT Results were obtained with the INOVA NOVA Lite HEp-2 FRANCISCO Kit by indirect immunofluorescence. Provider Outr Resulting Lab IMMUNOLOGY A ND SEROLOGY ORDERABLES Performing Organization Address [facility] Co de Phone Number [facility] [address] [place] [address] documented in this encounter Visit Diagnoses Not on filedocumented in this encounter Care Teams Materials Planner Relationship Specialty Start Date End Date Ashley Chavez ARNP [address] [place] [address] PCP - General 07/11/10 documented as of this encounter
--- OUTSIDE RECORDS SUMMARY | 2024-05-11 14:36 | XMS_ITS | Encounter Summary ---
Author Organization [facility] Address [address] [place] [address] Care Team Providers Care Router Setter Name Role Phone Unavailable Primary Care Provider Unavailabl e Encounter Details Date Type Department Care Team (Late st Contact Info) Description 06/29/2007 Results Only [facility] [address] [place] [address] Sánchez Acevedo MD [address] [place] [address] Social History Tobacco Use Types Packs/Day Years [...] ? PURNIMA THACKER ? Accession #: ? [id number] ? : ? 1955 (Age: 51) ??F [...] covered by a smooth white serosa. ??Three pharmaceutical service representative sections of the gallbladder are submitted in one cassette. ??(Sriram Elias/[facility] End of Report [facility] 06/29/2007 06/29/2007 21: 23 EST Sánchez Acevedo MD PATHOLOGY ORDERABLE [facility] [address] [place] [address] documented in this encounter Visit Diagnoses Not on filedocumented in this encounter
--- OUTSIDE RECORDS SUMMARY | 2024-05-11 14:36 | XMS_ITS | Encounter Summary ---
Author Organization [facility] Address [address] [place] [address] Care Team Providers Care Wood Getter Name Role Phone Unavailable Primary Care Provider Unavailabl e Encounter Details Date Type Department Care Team (Late st Contact Info) Description 03/24/2007 Results Only [facility] Non-Invasive Cardiology - [facility] [address] [place], [place] [address] Ashley Chavez ARNP [address] [place] [address] Social History Tobacco Use Types Packs/Day Years [...] ? PURNIMA THACKER ? Accession #: ? [id number] : ? 1955 (Age: 51) ??F ?Collect Date: ? 03/24/2007 Location: ? [facility] ? Receive Date: ? 03/28/2007 Provider: ?ASHLEY THOMAS Copy to: ? Specimen/Source: ?ThinPrep Pap Test, Endocervix, processed on Nuvilex ThinPrep Imaging System, with manual evaluation Last [...] Ashley THOMAS PATHOLOGY ORDERABLES [facility] [address] [place] [address] documented in this encounter Visit Diagnoses Not on filedocumented in this encounter
--- OUTSIDE RECORDS SUMMARY | 2024-05-11 14:36 | XMS_ITS | Encounter Summary ---
Author Organization [facility] Address [address] [place] [address] Care Team Providers Care Level Vial Setter Name Role Phone Ashley Chavez Primary Care Provider [phone] Encounter Details Date Type Department Care Team (Late st Contact Info) Description 04/29/2022 Lab Requisition [facility] Pathology & Laboratory Medicine - [address] [address] Outr Resulting Lab, Provider Social History Tobacco [...] <20.0 Units 04/30/2022 12:23 EDT [facility] Comment: ? Negative: [...] A ND SEROLOGY ORDERABLES Performing Organization Address [facility] de Phone Number [facility] [address] [place] [address] * SSA ANTIBODIES BY DOMO (04/29/2022 7:51 EDT) SSA Antibody 1.5 <20.0 Units 04/30/2022 12:22 EDT [facility] Comment: ? Negative: [...] A ND SEROLOGY ORDERABLES Performing Organization Address [facility] de Phone Number [facility] [address] [place] [address] documented in this encounter Visit Diagnoses Not on filedocumented in this encounter Care Teams Level Vial Setter Relationship Specialty Start Date End Date Ashley Chavez ARNP [address] [place] [address] PCP - General 07/11/10 documented as of this encounter
--- OUTSIDE RECORDS SUMMARY | 2024-05-11 14:36 | XMS_ITS | Clinical Summary ---
Author Organization [facility] Address [address] [place] [address] Care Team Providers Care Tube Balancer Name Role Phone Ashley Chavez Primary Care Provider [phone] Encounters Date Type Department Care Team Description 03/22/2024 Lab Requisition [facility] Pathology & Laboratory [address] [address] Consuelo Guerrero, DO Diaphragmatic hernia without obstruction or gangrene; Anemia, unspecified 03/21/2024 Lab Requisition [facility] Pathology & Laboratory [address] [address] Consuelo Guerrero, DO Encounter for other general examination 03/21/2024 Lab Requisition [facility] Pathology & Laboratory [address] [address] Outr Resulting Lab, Provider from Last 3 [...] EDT) LORY Negative 03/21/2024 22:31 EDT [facility] Blood VENOUS BLOOD / Unknown 03/21/2024 13:00 EDT 03/21/2024 21:51 EDT Consuelo Guerrero DO BLOOD BANK TESTS Performing Organization Address [facility] Co de Phone Number [facility] [address] [place] [phone] * HAPTOGLOBIN (03/21/2024 13:00 EDT) Haptoglobin 183 32 - 197 mg/dL 03/22/2024 10:25 EDT [facility] Blood VENOUS BLOOD / Unknown 03/21/2024 13:00 EDT 03/21/2024 21:50 EDT Provider Outr Resulting Lab CHEMISTRY & BLOOD GAS ORDERABLES Performing Organization Address [facility]/ZIP Co de Phone Number [facility] [address] [place], [place] [address] * SURGICAL PATHOLOGY (03/21/2024 11:35 EDT) Note to Patient The following pathology results have been interpreted by your pathologist and may be available to you before your health provider has had the opportunity to review them. Please allow time for your provider to receive these results and explore management options, if applicable. 03/24/2024 10:36 EDT [facility] Final Diagnosis A. JEJUNUM, [...] - Deeper sections x3 examined. 03/24/2024 10:36 [facility] Attestation There was significant resident/fellow involvement in the diagnostic evaluation of this case. By the signature below, the attending physician certifies that they have personally conducted a gross and/or microscopic examination of the described specimens and rendered or confirmed the above diagnosis. 03/24/2024 10:36 [facility] at 1036 Clinical History Anemia, hiatal hernia, 38 cm aguayo diverticulosis 03/24/2024 10:36 [facility] Gross Description A. [...] Torres 03/22/2024 9:36 03/24/2024 10:36 EDT [facility] Resident/Estuardo w: Luis Felipe Bragg DO 03/24/2024 10:36 EDT [facility] Performing Lab [facility] 10:36 EDT [facility] Scanned Images 03/24/2024 10:36 EDT [facility] Tissue POLYP OF COLON [...] 8:19 EDT Consuelo Guerrero DO PATHOLOGY ORDERABLES [facility] [address] [place] [address] from Last 3 Months Care Teams Tube Balancer Relationship Specialty Start Date End Date Ashley Chavez ARNP [address] [place] [address] PCP - General 07/11/10
--- OUTSIDE RECORDS SUMMARY | 2024-05-11 14:36 | XMS_ITS | Encounter Summary ---
Author Organization [facility] Address [address] [place] [address] Care Team Providers Care Wreath And Garland Maker Hand Name Role Phone Ashley Chavez Primary Care Provider [phone] Encounter Details Date Type Department Care Team (Late st Contact Info) Description 01/07/2023 Lab Requisition [facility] Pathology & Laboratory Medicine - [address] [id number] Outr Resulting Lab, Provider Social History Tobacco [...] BLOOD GAS ORDERABLES Performing Organization Address City/State/[facility] Co de Phone Number [facility] [address] [place] [address] * PROTEIN, TOTAL (01/06/2023 14:40 EDT) Blood VENOUS BLOOD / Unknown 01/06/2023 14:40 EDT 01/07/2023 17:37 EDT Provider Outr Resulting Lab CHEMISTRY & BLOOD GAS ORDERABLES Performing Organization Address [facility] Co de Phone Number [facility] [address] [place] [address] * (ABNORMAL) EXTRACTABLE NUCLEAR ANTIGEN PANEL (01/06/2023 14:40 EDT) SSA Antibody 1.3 <20.0 Units 01/08/2023 15:42 EDT [facility] Comment: ? Negative: [...] Antibody 1.5 <20.0 Units 01/08/2023 15:42 EDT [facility] Comment: ? Negative: [...] Antibody 15.3 <20.0 Units 01/08/2023 15:42 EDT [facility] Comment: ? Negative: <20.0 Units ? Weak Positive: 20.0 - 39.9 Units ? Moderate Positive: 40.0 - 80.0 Units ? Strong Positive: >80.0 Units Results were obtained with the FerficsVA QUANTA Lite Sm DOMO. ??Sm values obtained with different manufacturers' assay methods may not be used interchangeably. ??The magnitude of the reported IgG levels cannot be correlated to an endpoint titer. TAWER Antibody 149.1(H) <20.0 Units 01/08/2023 15:42 EDT [facility] Comment: ? Negative: <20.0 Units ? Weak Positive: 20.0 - 39.9 Units ? Moderate Positive: 40.0 - 80.0 Units ? Strong Positive: >80.0 Units Results were obtained with the Global Velocityva Quanta Lite TAWER DOMO. TAWER values obtained with different bottle house cleaners supervisor's assay methods may not be used interchangeaby. ??The magnitude of the reported IgG levels cannot be be correlated to an endpoint titer. A positive result in the Quanta Lite TAWER DOMO indicates the presence of antibodies reactive with the TAWER/Sm complex but cannot distinguish between anti-Sm and anti-TAWER activity. Blood VENOUS BLOOD / Unknown 01/06/2023 14:40 EDT 01/07/2023 17:37 EDT Provider Outr Resulting Lab IMMUNOLOGY A ND SEROLOGY ORDERABLES [facility] [address] [place] [address] * (ABNORMAL) ANTI NUCLEAR AB (FRANCISCO), IFA (01/06/2023 14:40 EDT) FRANCISCO Interpretation Positive(A) Negative 01/08/2023 15:22 EDT [facility] Comment: Result is [...] Pattern 1 1:5120 Speckled 01/08/2023 15:22 EDT [facility] Blood VENOUS BLOOD / Unknown 01/06/2023 14:40 EDT 01/07/2023 17:37 EDT Narrative [facility] - 01/08/2023 15:22 EDT Results were obtained with the INOVA NOVA Lite HEp-2 FRANCISCO Kit by indirect immunofluorescence. Provider Outr Resulting Lab IMMUNOLOGY A ND SEROLOGY ORDERABLES Performing Organization Address City/State/[facility] Co de Phone Number [facility] [address] [place] [address] documented in this encounter Visit Diagnoses Not on filedocumented in this encounter Care Teams Wreath And Garland Maker Hand Relationship Specialty Start Date End Date Ashley Chavez ARNP [address] [place] [address] PCP - General 07/11/10 documented as of this encounter
--- OUTSIDE RECORDS SUMMARY | 2024-05-11 14:36 | XMS_ITS | Encounter Summary ---
Author Organization [facility] Address [address] [place] [address] Care Team Providers Care Bicycle Repair Technician Name Role Phone Unavailable Primary Care Provider Unavailabl e Encounter Details Date Type Department Care Team (Late st Contact Info) Description 04/20/2005 Results Only [facility] - Maple conversion [address] [place] [address] Ziggy Valiente MD [address] [place] [id number] Social History Tobacco Use Types Packs/Day Years [...] ? PURNIMA THACKER ? Accession #: ? [id number] ? : ? 1955 (Age: 49) ??F [...] correlation with endoscopic appearance is recommended. (Dr. Chino)/[facility] Document reviewed and electronically signed by: [...] is entirely submitted in one cassette. ??(Arabella Santos)/[facility] End of Report PAUL ARELLANO 04/20/2005 04/21/2005 15: 04 EDT Ziggy Valiente MD PATHOLOGY ORDERABLES PAUL ARELLANO [address] [place] [address] documented in this encounter Visit Diagnoses Not on filedocumented in this encounter
--- OUTSIDE RECORDS SUMMARY | 2024-05-11 14:36 | XMS_ITS | Encounter Summary ---
Author Organization [facility] Address [address] [place] [address] Care Team Providers Care Watch Assembly Inspector Name Role Phone Scott Ashley WILLIAM Primary Care Provider [phone] Encounter Details Date Type Department Care Team (Late st Contact Info) Description 11/10/2013 Results Only [facility] [phone] Jeni Laird, POWER LINE INSTALLER [address] [place], [place] [phone] Social History Tobacco Use Types Packs/Day Years [...] ? PURNIMA THACKER ? Accession #: ? [id number] : ? 1955 (Age: 58) ??F ?Collect Date: ? 11/10/2013 Location: ? [facility] ? Receive Date: ? 11/14/2013 Provider: ?JENI LAIRD POWER LINE INSTALLER Copy to: ? Specimen/Source: ?Pap Test, Endocervix, [...] Report PAUL ARELLANO 11/10/2013 11/14/2013 Jeni Laird POWER LINE INSTALLER PATHOLOGY ORDERAB LES Performing Organization Address City/State/[facility] Co de Phone Number PAUL ARELLANO [address] [place] [address] documented in this encounter Visit Diagnoses Not on filedocumented in this encounter Care Teams Watch Assembly Inspector Relationship Specialty Start Date End Date Ashley Chavez ARNP [address] [place] [address] PCP - General 07/11/10 documented as of this encounter
--- OUTSIDE RECORDS SUMMARY | 2024-05-11 14:36 | XMS_ITS | Encounter Summary ---
Author Organization [facility] Address [address] [place] [address] Care Team Providers Care Tobacco Prizer Name Role Phone Unavailable Primary Care Provider Unavailabl e Encounter Details Date Type Department Care Team (Late st Contact Info) Description 03/24/2007 11:06 EDT - 03/24/2007 11:59 EDT Hospital Encounter [facility] - Other [address] [place] [address] Ashley Chavez ARNP [address] [place] [address] Discharge Disposition: Home or Self Care Social [...]
--- OUTSIDE RECORDS SUMMARY | 2024-05-11 14:36 | XMS_ITS | Encounter Summary ---
Author Organization [facility] Address [address] [place] [address] Care Team Providers Care Insurance Account Manager Name Role Phone Ashley Chavez Primary Care Provider [phone] Encounter Details Date Type Department Care Team (Latest Contact Info) Description 05/12/2019 13:18 EDT - 05/12/2019 23:59 EDT Hospital Encounter [address] [address] Unknown, Provider, Discharge Disposition: Home or Self Care Social History Tobacco Use Types Packs/Day Years Used Date Smoking Tobacco: Never Assessed Sex and Gender Information Value Date Recorded Sex Assigned at Not on file Gender Identity Not on file Sexual Orientation Not on file documented as of this encounter Discharge Disposition Disposition Code Departure Means Destination Home or Self Penitentiary documented in this encounter Plan of Treatment Not on file documented as of this encounter Visit Diagnoses Not on filedocumented in this encounter Care Teams Insurance Account Manager Relationship Specialty Start Date End Date Ashley Chavez ARNP [address] [place] [address] PCP - General 07/11/10 documented as of this encounter
--- OUTSIDE RECORDS SUMMARY | 2024-05-11 14:36 | XMS_ITS | Encounter Summary ---
Author Organization [facility] Address [address] [place] [address] Care Team Providers Care World Geography Teacher Name Role Phone Ashley Chavez Primary Care Provider [phone] Encounter Details Date Type Department Care Team (Late st Contact Info) Description 03/21/2024 Lab Requisition [facility] Pathology & Laboratory Medicine - [address] [phone] Outr Resulting Lab, Provider Social History Tobacco [...] 32 - 197 mg/dL 03/22/2024 10:25 EDT [facility] Blood VENOUS BLOOD / Unknown 03/21/2024 13:00 EDT 03/21/2024 21:50 EDT Provider Outr Resulting Lab CHEMISTRY & BLOOD GAS ORDERABLES [facility] [address] [place] [address] documented in this encounter Visit Diagnoses Not on filedocumented in this encounter Care Teams World Geography Teacher Relationship Specialty Start Date End Date Ashley Chavez ARNP [address] [place] [address] PCP - General 07/11/10 documented as of this encounter
--- OUTSIDE RECORDS SUMMARY | 2024-05-11 14:36 | XMS_ITS | Encounter Summary ---
Author Organization [facility] Address [address] [place] [address] Care Team Providers Care Portable Sawmill Operator Name Role Phone Scott, Ashley WILLIAM Primary Care Provider [phone] Encounter Details Date Type Department Care Team (Late st Contact Info) Description 12/23/2016 Results Only [facility]- [facility] [phone] Deborah Quiroga, MUFFLER HAND [address] [place] [phone] Social History Tobacco Use Types Packs/Day Years [...] ? PURNIMA THACKER ? Accession #: ? [id number] ? : ? 1955 (Age: 61) ??F ?Collect Date: ? 12/23/2016 ? Location: ? [facility] ? Receive Date: ? 12/25/2016 ? Provider: DEBORAH QUIROGA GOLF STARTER AND RANGER Copy to: ? Final Report SPECIMEN ADEQUACY ? Satisfactory for Evaluation - transformation zone component present GENERAL CATEGORIZATION ? Negative for Intraepithelial Lesion or Malignancy ?? Last Menstrual Period: years Specimen/Source: ??Pap Test, Cervix, ThinPrep Imaging System with manual evaluation Document reviewed and electronically signed by: ? Monica Cason [facility](ASCP) ? Report ??Date: 01/06/2017 09:11 HPV with Pap Test ? Date Ordered: ? 01/06/2017 ? Status: ?? Signed Out ?Date Complete: ? 01/07/2017 ? By: ??System Interface ? Date Reported: ? 01/07/2017 ? Interpretation RESULT: Negative for HPV. No E6 or E7 mRNA is detected from HPV types 16,18,31,33,35, 39,45,51,52,56,58, 59,66, and 68 by repair clerk mediated amplification. Comments Document reviewed and electronically signed by: ? System Interface ? Report date: 01/07/2017 By the signature above, the attending physician certifies that he/she has personally conducted a gross and/or microscopic examination of the described specimens and rendered or confirmed the above diagnosis. End of Report [facility] 12/23/2016 12/25/2016 Deborah Quiroga MUFFLER HAND PATHOLOGY ORDERABLES [facility] [address] [place] [address] documented in this encounter Visit Diagnoses Not on filedocumented in this encounter Care Teams Portable Sawmill Operator Relationship Specialty Start Date End Date Ashley Chavez ARNP [address] [place] [address] PCP - General 07/11/10 documented as of this encounter
--- OUTSIDE RECORDS SUMMARY | 2024-05-11 14:36 | XMS_ITS | Encounter Summary ---
Author Organization [facility] Address [address] [place] [address] Care Team Providers Care Architectural Job Captain Name Role Phone Ashley Chavez Primary Care Provider [phone] Encounter Details Date Type Department Care Team (Late st Contact Info) Description 03/22/2024 Lab Requisition [facility] Pathology & Laboratory Medicine - [address] [address] Consuelo Guerrero, DO [address] [place], [place] [address] Diaphragmatic hernia without obstruction or gangrene; Anemia, [...] explore management options, if applicable. 03/24/2024 10:36 [facility] Final Diagnosis A. JEJUNUM, PROXIMAL, [...] Luis Torres 03/22/2024 9:36 03/24/2024 10:36 EDT [facility] Resident/Estuardo w: Luis Felipe Bragg DO 03/24/2024 10:36 T [facility] Performing Lab [facility] 10:36 T [facility] Scanned Images 03/24/2024 10:36 T [facility] Tissue POLYP OF COLON [...] 8:19 EDT Consuelo Guerrero DO PATHOLOGY ORDERABLES [facility] [address] [place] [address] documented in this encounter Visit Diagnoses Diagnosis Diaphragmatic hernia without obstruction or gangrene Diaphragmatic hernia without mention of obstruction or gangrene Anemia, unspecified documented in this encounter Care Teams Architectural Job Captain Relationship Specialty Start Date End Date Ashley Chavez ARNP [address] [place] [address] PCP - General 07/11/10 documented as of this encounter
--- OUTSIDE RECORDS SUMMARY | 2024-05-11 14:36 | XMS_ITS | Encounter Summary ---
Author Organization [facility] Address [address] [place] [address] Care Team Providers Care Ham Stripper Name Role Phone Ashley Chavez Primary Care Provider Encounter Details Date Type Department Care Team (Late st Contact Info) Description 06/23/2016 Results Only [facility]- [facility] [phone] Matthew Acevedo, DO [address] [facility] [place] [address] [place] [address] Social History Tobacco Use Types Packs/Day [...] ? PURNIMA THACKER ? Accession #: ? [id number] : ? 1955 (Age: 60) ??F ?Collect [...] ??400 ?? KARYOTYPE: 46,XX[25] End of Report [facility] 06/23/2016 06/24/2016 Matthew Acevedo DO PATHOLOGY ORDER JODIE [facility] [address] [place] [address] * FLOW CYTOMETRY (06/23/2016 0:00 EST) Pathology Report: FLOW CYTOMETRY REPORT Reports generated via electronic interface contain original data; however they are lacking the format of the original report. Caution should be taken when reading/interpreting unformatted reports. Name: ? PURNIMA THACKER ? Accession #: ? [id number] : ? 1955 (Age: 60) ??F ?Collect Date: ? 06/23/2016 00:00 Location: ? [facility] ? Receive Date: ? 06/24/2016 08:00 Provider: ?MATTHEW ACEVEDO DO Copy to: ?WINTER HANKINS NUTRIENT MANAGEMENT SPECIALIST MARIO ALBERTO RAMOS MD ? FINAL IMMUNOPHENOTYPIC INTERPRETATION: ? Bone marrow, flow cytometric analysis: -No immunophenotypic evidence of a clonal cell population. ??See comment. ? COMMENT: The results of flow cytometry show no immunophenotypic evidence of involvement by a clonal lymphoproliferative or myeloproliferative disorder. ??Correlation of these findings with morphologic and clinical data is essential. ??Please refer to pathology report number [id number] for morphologic details. ? Document reviewed and [...] the Department of Pathology and Laboratory Medicine, [place], [place] ??It has not been cleared or [...] clinical laboratory testing. End of Report ?? [facility] 06/23/2016 06/24/2016 8:0 0 EST Matthew Acevedo DO PATHOLOGY ORDER JODIE [facility] [address] [place] [address] * BONE MARROW/HEMPATH CONSULT (06/23/2016 0:00 EST) Pathology Report: BONE MARROW REPORT Reports generated via electronic interface contain original data; however they are lacking the format of the original report. Caution should be taken when reading/interpreting unformatted reports. Name: ? PURNIMA THACKER ? Accession #: ? [id number] : ? 1955 (Age: 60) ??F ?Collect Date: ? 06/23/2016 Location: ? [facility] ? Receive Date: ? 06/24/2016 Provider: ? MATTHEW ACEVEDO DO Copy to: ?WINTER HANKINS NUTRIENT MANAGEMENT SPECIALIST MARIO ALBERTO RAMOS MD ? DIAGNOSIS: [...] #1: Aggregate biopsy length: 8 mm with chief security and safety officer trabeculae of lamellar bone, cellular bone [...] SEE ABOVE DISCUSSION Lambda (polyclonal, Dako) ??(B1): [place] (polyclonal, Dako) ??(B1): Biopsy (decalcified) #2: Aggregate biopsy length: 8 mm with chief security and safety officer trabeculae of lamellar bone, cellular bone [...] (M115, Leica) ??(B2): Lambda (polyclonal, Dako) ??(B2): [place] (polyclonal, Dako) ??(B2): NOTE: ??One or more [...] performance characteristics have been determined by [facility]. ??The positive and negative controls worked [...] ? 1% Blasts ?1% Special Studies Cytogenetics ([id number]): Pending. Flow Cytometry ([id number]): No immunophenotypic evidence of a clonal cell population. ? End of Report [facility] 06/23/2016 06/24/2016 Matthew Acevedo DO PATHOLOGY ORDER JODIE [facility] [address] [place] [address] documented in this encounter Visit Diagnoses Not on filedocumented in this encounter Care Teams Ham Stripper Relationship Specialty Start Date End Date Ashley Chavez ARNP [address] [place] [address] PCP - General 07/11/10 documented as of this encounter
--- OUTSIDE RECORDS SUMMARY | 2024-05-11 14:36 | XMS_ITS | Encounter Summary ---
Author Organization [facility] Address [address] [place] [address] Care Team Providers Care Emt B Name Role Phone Ashley Chavez Primary Care Provider [phone] Encounter Details Date Type Department Care Team (Late st Contact Info) Description 10/30/2022 Lab Requisition [facility] Pathology & Laboratory Medicine - [address] [address] Outr Resulting Lab, Provider Social History Tobacco [...] Stranded) <12.3 <30.0 IU/mL 11/03/2022 13:08 EDT [facility] Comment: ? Negative: ??<30.0 IU/mL ? Borderline Positive: ??30.0 - 75.0 IU/mL ? Positive: ??>75.0 IU/mL Results were obtained with the INOVA QUANTA Lite dsDNA SC DOMO assay on the Poikos DSX. Blood VENOUS BLOOD / Unknown 10/29/2022 14:00 EDT 10/30/2022 19:27 EDT Provider Outr Resulting Lab IMMUNOLOGY A ND SEROLOGY ORDERABLES Performing Organization Address [facility] de Phone Number [facility] [address] [place] [address] * SM ([place]) ANTIBODY (10/29/2022 14:00 EDT) [facility] SM ([place]) Antibody 18.5 <20.0 Units 11/03/2022 14:26 EDT [facility] Comment: ? Negative: <20.0 [...] Address [facility] de Phone Number [facility] [address] [place] [address] documented in this encounter Visit Diagnoses Not on filedocumented in this encounter Care Teams Emt B Relationship Specialty Start Date End Date Ashley Chavez ARNP [address] [place] [address] PCP - General 07/11/10 documented as of this encounter
--- OUTSIDE RECORDS SUMMARY | 2024-05-11 14:36 | XMS_ITS | Encounter Summary ---
Author Organization [facility] Address [address] [place] [address] Care Team Providers Care Bundle Person Name Role Phone Unavailable Primary Care Provider Unavailabl e Encounter Details Date Type Department Care Team (Late st Contact Info) Description 07/08/[address] [facility] Non-Invasive Cardiology - [facility] [address] [place] [address] Ashley Chavez, WILLIAM [address] [place] [address] Social History Tobacco Use Types Packs/Day Years [...] reading/interpreti ng unformatted reports. ? Name: ? PRUNIMA THACKER ? Accession #: ? [id number] ? : ? 1955 (Age: 54) ??F [...] Ashley THOMAS PATHOLOGY ORDERABLES PAUL ARELLANO [address] [place] [address] documented in this encounter Visit Diagnoses Not on filedocumented in this encounter
--- OUTSIDE RECORDS SUMMARY | 2024-05-11 14:36 | XMS_ITS | Encounter Summary ---
Author Organization [facility] Address [address] [place] [address] Care Team Providers Care Hi Lo Driver Name Role Phone Ashley Chavez Primary Care Provider [phone] Encounter Details Date Type Department Care Team (Late st Contact Info) Description 05/12/2022 Lab Requisition [facility] Pathology & Laboratory Medicine - [address] [address] Outr Resulting Lab, Provider Social History Tobacco [...] 14:32 EDT) Hold Hold 05/12/2022 22:46 EDT [facility] Blood VENOUS BLOOD / Unknown 05/12/2022 14:32 EDT 05/12/2022 21:40 EDT Provider Outr Resulting Lab LAB INFO SER VICE AND SUPPORT & PHONE RESULT Performing Organization Address [facility]/ZIP Co de Phone Number [facility] [address] [place] [address] * (ABNORMAL) HOMOCYSTEINE (05/12/2022 14:32 EDT) Homocysteine 14.7(H) 5.0 - 13.9 umol/L 05/13/2022 9:05 EDT [facility] Comment:Results may be false ly elevated if sample is not collected on ice or is not removed from cells within 1 hour of collection. Blood VENOUS BLOOD / Unknown 05/12/2022 14:32 EDT 05/12/2022 21:40 EDT Narrative [facility] - 05/13/2022 9:05 EDT [...] GAS ORDERABLES Performing Organization Address [facility] Co de Phone Number [facility] [address] [place] [address] * HAPTOGLOBIN (05/12/2022 14:32 EDT) Pathologist [facility] Haptoglobin 138 32 - 197 mg/dL 05/13/2022 9:55 EDT [facility] Blood VENOUS BLOOD / Unknown 05/12/2022 14:32 EDT 05/12/2022 21:36 EDT Provider Outr Resulting Lab CHEMISTRY & BLOOD GAS ORDERABLES Performing Organization Address [facility] Co de Phone Number [facility] [address] [place] [address] * (ABNORMAL) ANTI NUCLEAR AB (FRANCISCO), IFA (05/12/2022 14:32 EDT) FRANCISCO Interpretation Positive(A) Negative 05/13/2022 14:44 EDT [facility] Comment: Result is [...] Pattern 1 1:5120 Speckled 05/13/2022 14:44 EDT [facility] Blood VENOUS BLOOD / Unknown 05/12/2022 14:32 EDT 05/12/2022 21:36 EDT Narrative [facility] - 05/13/2022 14:44 EDT Results were obtained with the INOVA NOVA Lite HEp-2 FRANCISCO Kit by indirect immunofluorescence. Provider Outr Resulting Lab IMMUNOLOGY A ND SEROLOGY ORDERABLES [facility] [address] [place] [address] documented in this encounter Visit Diagnoses Not on filedocumented in this encounter Care Teams Hi Lo Driver Relationship Specialty Start Date End Date Ashley Chavez ARNP [address] [place] [address] PCP - General 07/11/10 documented as of this encounter
--- OUTSIDE RECORDS SUMMARY | 2024-05-11 14:36 | XMS_ITS | Referral Summary ---
Author Organization [facility] Address [address] [place] [address] Care Team Providers Care Missile Inspector Name Role Phone Ashley Chavez Primary Care Provider [phone] Encounters Date Type Department Care Team Description 03/22/2024 Lab Requisition [facility] Pathology & Laboratory [address] [address] Consuelo Guerrero, DO Diaphragmatic hernia without obstruction or gangrene; Anemia, unspecified 03/21/2024 Lab Requisition [facility] Pathology & Laboratory [address] [address] Consuelo Guerrero DO Encounter for other general examination 03/21/2024 Lab Requisition [facility] Pathology & Laboratory [address] [address] Outr Resulting Lab, Provider from Last 3 [...] 13:00 EDT) LORY Negative 03/21/2024 22:31 EDT [facility] BLOOD BANK Blood VENOUS BLOOD / Unknown 03/21/2024 13:00 EDT 03/21/2024 21:51 EDT Consuelo Guerrero DO BLOOD BANK TESTS Performing Organization Address [facility] [address]/[facility] Co de Phone Number [facility] BLOOD BANK [address] [place] [address] * HAPTOGLOBIN (03/21/2024 13:00 EDT) Haptoglobin 183 32 - 197 mg/dL 03/22/2024 10:25 EDT [facility] Blood VENOUS BLOOD / Unknown 03/21/2024 13:00 EDT 03/21/2024 21:50 EDT Provider Outr Resulting Lab CHEMISTRY & BLOOD GAS ORDERABLES Performing Organization Address [facility] [address]/[facility] Co de Phone Number [facility] [address] [place] [address] * SURGICAL PATHOLOGY (03/21/2024 11:35 EDT) Note to Patient The following pathology results have been interpreted by your pathologist and may be available to you before your health provider has had the opportunity to review them. Please allow time for your provider to receive these results and explore management options, if applicable. 03/24/2024 10:36 EDT [facility] Final Diagnosis A. [...] - Deeper sections x3 examined. 03/24/2024 10:36 [facility] Attestation There was significant resident/fellow involvement in the diagnostic evaluation of this case. By the signature below, the attending physician certifies that they have personally conducted a gross and/or microscopic examination of the described specimens and rendered or confirmed the above diagnosis. 03/24/2024 10:36 [facility] at 1036 Clinical History Anemia, hiatal hernia, 38 cm aguayo diverticulosis 03/24/2024 10:36 [facility] Gross Description A. Received [...] Luis Torres 03/22/2024 9:36 03/24/2024 10:36 EDT [facility] Resident/Estuardo w: Luis Felipe Bragg DO 03/24/2024 10:36 EDT [facility] Performing Lab [facility] 10:36 EDT [facility] Scanned Images 03/24/2024 10:36 EDT [facility] Tissue POLYP OF [...] 8:19 EDT Consuelo Guerrero DO PATHOLOGY ORDERABLES [facility] [address] [place] [address] from Last 3 Months Care Teams Missile Inspector Relationship Specialty Start Date End Date Ashley Chavez ARNP [address] [place] [address] PCP - General 07/11/10
--- OUTSIDE RECORDS SUMMARY | 2024-05-11 14:37 | XMS_ITS | Encounter Summary ---
Author Organization [facility] [place] [address] Care Team Providers Care Medical Staff Services Coordinator Name Role Phone Magdalena Acosta MD Primary Care Provider [phone] Encounter Details Date Type Department Care Team (Late st Contact Info) Description 07/08/2023 10:15 AM EST Office Visit Cardiology at [address] [phone] Severe aortic stenosis Social History Tobacco Use [...] [facility] Hematology Oncology [address] [place] [address] 05/12/2024 10:00 AM EDT Office Visit Hematology [place] [address] Markel Borjas MD [facility] [address] [place] [address] 03/01/2025 4:15 PM EDT Office Visit Dermatology at [place] [address] [place] [address] Marek Bonilla MD [address], [place] [address] documented as of this encounter Procedures Procedure [...] (Bezet) 449 ms MUSE SYSTEM Calculated P Alder 66 degrees MUSE SYSTEM Calculated R Alder 60 degrees MUSE SYSTEM Calculated T Alder 53 degrees MUSE SYSTEM INTERPRETATION Normal sinus rhythm Minimal voltage criteria for LVH, may be normal variant ( Sokolow-Orozco ) ST & T wave abnormality, consider lateral ischemia ??vs. repolarization abnormality from LVH Abnormal ECG When compared with ECG of 13-MAY-2023 09:22, Premature ventricular complexes are no longer Present Minimal criteria for Septal infarct are no longer Present Confirmed by Maxx Best ([id number]) on 07/09/2023 10:07:22 AM MUSE SYSTEM 07/08/2023 10:2 7 AM EST 07/09/2023 10:07 AM EST Brody Suyapa Eusebio OSBORN ECG ORDERABLES D4P SYSTEM documented in this encounter Visit Diagnoses Diagnosis Severe aortic stenosis Aortic valve disorders Chronic idiopathic neutropenia Other neutropenia documented in this encounter Care Teams Medical Staff Services Coordinator Relationship Specialty Start Date End Date Magdalena Acosta MD [address] [place] [address] PCP - General Family Medicine 02/05/23 documented as of this encounter
--- OUTSIDE RECORDS SUMMARY | 2024-05-11 14:37 | XMS_ITS | Encounter Summary ---
Author Organization [facility] [place] [address] Care Team Providers Care Body Press Operator Name Role Phone Magdalena Acosta MD Primary Care Provider [phone] Encounter Details Date Type Department Care Team [...] [facility] Hematology Oncology [address] [place] [address] 05/12/2024 10:00 AM EDT Office Visit [place] [address] Markel Borjas MD [facility] [address] [place] [address] 03/01/2025 4:15 PM EDT Office Visit Dermatology at [place] [address] [place] [address] Marek Bonilla MD [address] [place] [address] documented as of this encounter Visit Diagnoses Not on filedocumented in this encounter Care Teams Body Press Operator Relationship Specialty Start Date End Date Magdalena Acosta MD [address] [place] [address] PCP - General Family Medicine 02/05/23 documented as of this encounter
--- OUTSIDE RECORDS SUMMARY | 2024-05-11 14:37 | XMS_ITS | Encounter Summary ---
Author Organization [facility] [place] [address] Care Team Providers Care Executive Vice President Business Development Name Role Phone Magdalena Acosta MD Primary Care Provider [phone] Reason for Visit * Reason Comments Aortic Stenosis Coronary Artery Disease Hypertension Encounter Details Date Type Department Care Team (Latest Contact Info) Description 11/16/2023 11:40 AM EDT TH Visit (TeleHealth) Cardiology at [address] [address] Jay Maza PA [facility] [place] [address] Aortic valve stenosis, etiology of cardiac valve disease unspecified; Coronary artery disease, unspecified vessel or lesion type, unspecified whether angina present, unspecified whether [place] or transplanted heart Social History Tobacco Use Types Packs/Day Years Used Date Smoking Tobacco: Never Smokeless Tobacco: Never Alcohol Use Standard Drinks/Week Comments No 0 (1 standard drink = 0.6 oz pur e alcohol) none [facility] Inpatient Questions Answer Date Recorded Does Anyone [...] from the original note were not included. [facility] Interventional Cardiology CARDIOLOGY TELE VISIT NOTE 11/16/23 Patient: Purnima Thacker Prior to the initiation of our discussion, the risks and benefits of tele health visits were discussed, and the patient consented verbally to this being a virtual telehealth visit in lieu of an in person office visit. CARDIOLOGISTS: Antelmo Sharma MD ([facility] Cards) Maria Luz Mejia MD ([facility] Cards - [facility]) Problem List: [...] fraction I35.0 Mild coronary artery disease by [facility] 11/09/2022 I25.10 Heart failure with reduced ejection [...] notable for coronary artery protection given low skkka-pm-hvnwgbht distance. There was no obstruction post Valve [...] leads Confirmed by MD Harshil, Haris Bell ([id number]) on 05/10/2023 8:11:46 AM Cardiac Cath 11/09/2022 [...] in one year. EKATERINA Thompson Time spent: 8273RWF9 0-5min 1159GHV3 6-10min 5469UGS3 11-15min x 3759AQM1 16-20min 5643KUV4 21-30min 6844LSS3 31-40min 2266MRN9 40+ min Jay Maza PA-C Interventional Cardiology [facility] Pager [phone] documented in this encounter Plan of Treatment Upcoming Encounters Date Type Department Care Team (Late st Contact Info) Description 05/12/2024 9:00 AM EDT Laboratory Appointment Lab at [facility] Hematology Oncology [address] [place] [address] 05/12/2024 10:00 AM EDT Office Visit [place] [address] Markel Borjas MD [facility] [address] HEMATOLOGY [place] [address] 03/01/2025 4:15 PM EDT Office Visit Dermatology at [place] [address] [place] [address] Marek Bonilla MD [address], [place] [address] documented as of this encounter Visit Diagnoses Diagnosis Aortic valve stenosis, etiology of cardiac valve disease unspecified Coronary artery disease, unspecified vessel or lesion type, unspecified whether angina present, unspecified whether [place] or transplanted heart Chronic idiopathic neutropenia Other neutropenia documented in this encounter Care Teams Executive Vice President Business Development Relationship Specialty Start Date End Date Magdalena Acosta MD [address] [place] [address] PCP - General Family Medicine 02/05/23 documented as of this encounter
--- OUTSIDE RECORDS SUMMARY | 2024-05-11 14:37 | XMS_ITS | Encounter Summary ---
Author Organization [facility] [place] [address] Care Team Providers Care Public Health Technician Name Role Phone Magdalena Acosta MD Primary Care Provider [phone] Reason for Visit * Reason Comments Coronary Artery Disease Hypertension Aortic Stenosis Encounter Details Date Type Department Care Team (Latest Contact Info) Description 07/20/2023 4:40 PM EST TH Visit (TeleHealth) Cardiology at [address] [address] Jay Maza PA [facility] [place] [address] HFrEF (heart failure with reduced ejection fraction); [...] Maza PA - 07/20/2023 4:40 PM EST [facility] Interventional Cardiology CARDIOLOGY [...] lieu of an in person office visit. Bench Mechanic: Antelmo Sharma MD ([facility] Cards) Maria Luz Mejia MD ([facility] / [facility] cards) Problem [...] notable for coronary artery protection given low krazb-nf-uivgguew distance. There was no obstruction post Valve deployment, but the stent could not be removed safely, so it was deployed. 4.0 mm x 30mm in left main. She was loaded on brilinta aka ticagrelor. Immediately post valve deployment, chest compressions to circulate central epinephrine which was administered given her hypotension, low LVEF, and low cardiac reserve. Next, the patient was transferred to [facility] for pressor and inotropic support. Pressors weaned overnight. Cardiac indices by thermodilution remained greater than 3 with continued Milrinone 0.125 mcg/kg/min. EKG the next day with NSR with stable WV/QRS intervals. Hemoglobin 7.8 [...] arms and wrists. Successful right transfemoral TAVR Xvegx-su-Nxcsm with a 23 mm Lai 3 THV. [...] leads Confirmed by MD Harshil, Haris Bell ([id number]) on 05/10/2023 8:11:46 AM Cardiac Cath 11/09/2022 [...] in chart review and direct patient contact. [id number] 0-5min 5574IPN6 6-10min 6477ZWD5 11-15min 6577LML0 16-20min x 4251KAZ1 21-30min 1031OIS1 31-40min 6186SVJ0 40+ min Jay Maza PA-C Interventional Cardiology [facility] Pager [phone] documented in this encounter Plan of Treatment Upcoming Encounters Date Type Department Care Team (Late st Contact Info) Description 05/12/2024 9:00 AM EDT Laboratory Appointment Lab at [facility] Hematology Oncology [address] [place] [address] 05/12/2024 10:00 AM EDT Office Visit Hematology [place] [address] Markel Borjas MD [facility] [address] [place] [address] 03/01/2025 4:15 PM EDT Office Visit Dermatology at [place] [address] [place] [address] Marek Bonilla MD [address], [place] [address] documented as of this encounter Visit Diagnoses Diagnosis HFrEF (heart failure with reduced ejection fraction) Hypertension, unspecified type Aortic valve stenosis, etiology of cardiac valve disease unspecified Chronic idiopathic neutropenia Other neutropenia documented in this encounter Care Teams Public Health Technician Relationship Specialty Start Date End Date Magdalena Acosta MD [address] [place] [address] PCP - General Family Medicine 02/05/23 documented as of this encounter
--- OUTSIDE RECORDS SUMMARY | 2024-05-11 14:37 | XMS_ITS | Encounter Summary ---
Author Organization [facility] [place] [address] Care Team Providers Care Edge Glue Machine Tender Name Role Phone Magdalena Acosta MD Primary Care Provider [phone] Encounter Details Date Type Department Care Team (Latest Contact Info) Description 05/10/2024 Travel Social History Tobacco Use Types Packs/Day [...] [facility] Hemat[facility] Oncology [address] [place] [address] 05/12/2024 10:00 AM EDT Office Visit [place] [address] Markel Borjas MD [facility] [address] [place] [address] 03/01/2025 4:15 PM EDT Office Visit Dermatology at [place] [address] [place] [address] Marek Bonilla MD [address], [place] [address] documented as of this encounter Visit Diagnoses Not on filedocumented in this encounter Care Teams Edge Glue Machine Tender Relationship Specialty Start Date End Date Magdalena Acosta MD [address] [place] [address] PCP - General Family Medicine 02/05/23 documented as of this encounter
--- OUTSIDE RECORDS SUMMARY | 2024-05-11 14:37 | XMS_ITS | Encounter Summary ---
Author Organization [facility] [place] [address] Care Team Providers Care Surfboard Designer Name Role Phone Magdalena Acosta MD Primary Care Provider [phone] Encounter Details Date Type Department Care Team (Late st Contact Info) Description 05/27/2023 Refill Cardiology at [address] [phone] Vero Marrero, RN Social History Tobacco Use [...] PM EDT TC to Nurse Sosa at [facility] to relay response from Jay Maza [...] after that 75mg once daily. Jay Marrero scale adjuster Clinic at [facility] [address] * Telephone Encounter - Vero Marrero RN - 05/27/2023 1:46 PM EDT VM received from triage nurse Sosa at [facility] stating patient was seen today by [...] more affordable option, if possible. Vero Marrero scale adjuster Clinic at [facility] [address] documented in this encounter Plan of Treatment Upcoming Encounters Date Type Department Care Team (Late st Contact Info) Description 05/12/2024 9:00 AM EDT Laboratory Appointment Lab at [facility] Hematology Oncology [address] [place] [phone] 05/12/2024 10:00 AM EDT Office Visit [place]ematology [place] [address] Markel Borjas MD [facility] [address] [place] [address] 03/01/2025 4:15 PM EDT Office Visit Dermatology at [address] [address] Marek Bonilla MD [address] [place] [address] documented as of this encounter Visit Diagnoses Diagnosis Aortic valve stenosis, etiology of cardiac valve disease unspecified Chronic idiopathic neutropenia Other neutropenia documented in this encounter Care Teams Surfboard Designer Relationship Specialty Start Date End Date Magdalena Acosta MD [address] [place] [address] PCP - General Family Medicine 02/05/23 documented as of this encounter
--- OUTSIDE RECORDS SUMMARY | 2024-05-11 14:37 | XMS_ITS | Encounter Summary ---
Author Organization [facility] [place] [address] Care Team Providers Care Paper Folder Name Role Phone Magdalena Acosta MD Primary Care Provider [phone] Encounter Details Date Type Department Care Team (Late st Contact Info) Description 12/02/2023 11:15 AM EDT Office [place] [address] Magdalena Peralta MD [facility] [place] [address] Mixed connective tissue disease Social History Tobacco [...] 1:5120 speckled; VIC negative; Myositis panel with MANGLE [employer] C[employer] ab 149.1 (positive); Anti U1RNP IgG 119; [...] list of questions that she sent via [facility] ahead of her visit, which we discussed [...] exposure. She has an appointment with her [employer] scheduled in January. (Dr Bonilla in [place]) ROS (positives in bold): Gen: no fevers, [...] but I encouraged her to contact her [employer] to see if she could have her [...] Dr. Tanisha Peralta MD Rheumatology Fellow Pager: [phone] * Federico Yee MD - 12/02/2023 11:15 [...] [facility] Hematology Oncology [address] [place] [address] 05/12/2024 10:00 AM EDT Office Visit Hematology [place] [address] Markel Borjas MD [facility] [address] [place] [address] 03/01/2025 4:15 PM EDT Office Visit Dermatology at [address] [phone] Marek Bonilla MD [address] [facility] [place] [address] Scheduled Orders Name Type Priority Associated Diagnoses Orde r Schedule EKG 12 Lead ECG Routine Mixed connective tissue disease Expected: 12/02/2023, Expires: 06/03/2024 documented as of this encounter Visit Diagnoses Diagnosis Mixed connective tissue disease Other specified diffuse disease of connective tissue Chronic idiopathic neutropenia Other neutropenia documented in this encounter Care Teams Paper Folder Relationship Specialty Start Date End Date Magdalena Acosta MD [address] [place] [address] PCP - General Family Medicine 02/05/23 documented as of this encounter
--- OUTSIDE RECORDS SUMMARY | 2024-05-11 14:37 | XMS_ITS | Encounter Summary ---
Author Organization [facility] [place] [address] Care Team Providers Care Batch Still Operator Name Role Phone Magdalena Acosta MD Primary Care Provider Reason for Referral * Diagnostic Test (Routine) - Closed Specialty Diagnoses / Procedures Referred By Contac t Referred To Contact Cardiology Diagnoses S/P TAVR (transcatheter aortic valve replacement) Procedures Echocardiogram Transthoracic Vinod Juárez PA [facility] [place] [address] [facility] [place] [address] Referral ID Status Reason Start Date Expiration Date V isits Requested Visits Authorized [id number] Closed Specialty Service Requested 05/22/2023 05/21/2024 1 1 Reason for Visit * Diagnostic Test (Routine) - Closed Specialty Diagnoses / Procedures Referred By Contac t Referred To Contact Cardiology Diagnoses S/P TAVR (transcatheter aortic valve replacement) Procedures Echocardiogram Transthoracic Vinod Juárez PA [facility] [place] [address] [facility] [place] [address] Referral ID Status Reason Start Date Expiration Date V isits Requested Visits Authorized [id number] Closed Specialty Service Requested 05/22/2023 05/21/2024 1 1 Encounter Details Date Type Department Care Team (Latest Contact Info) Description 07/08/2023 10:19 AM EST - 07/08/2023 11:59 PM EST Hospital Encounter Non-[place] [address] Alirio Esparza MD S/P TAVR (transcatheter aortic [...] [facility] [place] [place] [address] [place] [address] 05/12/2024 10:00 AM EDT Office Visit H[place]ology [place] [address] Markel Borjas MD [facility] [address] [place] [address] 03/01/2025 4:15 PM EDT Office Visit Dermatology at [place] [address] [facility] [place] [address] Marek Bonilla MD [address] [facility] [place] [address] documented as of this encounter Procedures Procedure [...] EST Narrative 07/08/2023 12:26 PM EST 1 [place] [address] ? Echocardiogram Report Name: ONESIMO THACKER ?Study Date: 07/08/2023 10:31 AMBP: 118/60 mmHg ? Patient Location: : 1955 ? Height: 155 cm ? Account: [id number] Age: 67 yrs ? Weight: 74 kg Gender: Female ?BSA: 1.7 m2 Ordering Physician: ALIRIO ESPARZA Referring Physician: VINOD JUÁREZ Performed By: Felicia Norris RDCS Reason For Study: S/P TAVR Exam Location: [facility]. Interpretation Summary Left ventricular systolic [...] no significant change (post-procedure). Procedure Limited - 75725. Doppler - 20694. Color Doppler - 61346. Satisfactory quality. This study is limited because [...] Note Lee Kincaid MD - 07/08/2023 1 [place] [address] Echocardiogram Report Name: KIRSTIEONESIMO Study Date: 310:31 AMBP: 118/60 mmHg Patient Location: : 1955 Height: 155 cm Account: [id number] Age: 67 yrs Weight: 74 kg Gender: Female BSA: 1.7 m2 Ordering Physician: ALIIRO ESPARZA Referring Physician: VINOD JUÁREZ Performed By: Felicia Norris RDCS Reason For Study: S/P TAVR Exam Location: [facility]. Interpretation Summary Left ventricular systolic [...] is nosignificant change (post-procedure). Procedure Limited - 89980. Doppler - 42135. Color Doppler - 46409. Satisfactoryquality. This study is limited because of [...] neutropenia documented in this encounter Care Teams Batch Still Operator Relationship Specialty Start Date End Date Magdalena Acosta MD [address] [place] [address] PCP - General Family Medicine 02/05/23 documented as of this encounter
--- OUTSIDE RECORDS SUMMARY | 2024-05-11 14:37 | XMS_ITS | Clinical Summary ---
Author Organization Count Includes [facility] Address [facility] [place] [address] Care Team Providers Care Rubber Mill Tender Name Role Phone Magdalena Acosta MD Primary Care Provider Allergies No known active allergies Medications Medication [...] fraction 05/08/2023 Mild coronary artery disease by [facility] 11/09/2022 Heart failure with reduced e jection [...] Encounters Date Type Department Care Team Description 05/10/2024 Travel 04/11/2024 Transcribe Orders eDH Incoming Referrals [phone] Consuelo Guerrero DO Anemia, unspecified type 03/01/2024 Telephone Cardiology at [address] [address] Cynthia Monsalve RN Pre Procedure Call (DAPT hold for EGD and colo?) 02/22/2024 4:15 PM EDT Office Visit Dermatology at [address] [place] [address] Marek Bonilla MD Seborrheic keratosis; Rosacea; [...] [facility] Hematology Oncology [address] [place] [address] 05/12/2024 10:00 AM EDT Office Visit [place] [address] Markel Borjas MD [facility] [address] H[place]AT[place] [address] 03/01/2025 4:15 PM EDT Office Visit Dermatology at [place] [address] [place] [address] Marek Bonilla MD [address], [place] [address] Health Maintenance Due Date Last Done Comments [...] 06/05/2036 06/05/2021 Medical Devices Implanted Type Area Disc Jockey Device Identifier Shelf Expiration Date Model / Serial / Lot Valve,Aor,Pericar d,Magna,25mm ([id number]) - [id number] Implanted:Qty: 1 on 09/21/2016 by Alirio Esparza MD at [facility] IMPLANTS N/A: Heart DO NOT USE [employer] - [id number] 06/02/2020 [id number] / / [id number] Cable,Blnt,Ss,38i n ([id number]) - [id number] Implanted:Qty: 4 on 09/21/2016 by Alirio Esparza MD at [facility] IMPLANTS N/A: Chest [employer] - [id number] 04/29/2021 [id number] / / [id number] Patch,Cav,Pericar d,2x5cm ([id number]) (Autoreq) - [id number] Implanted:Qty: 1 on 09/21/2016 by Alirio Esparza MD at [facility] IMPLANTS N/A: Heart DO NOT USE [employer] - [id number] 04/21/2018 [id number] / / [id number] Tavr-05/12/2023 Implanted:Qty: 1 on 05/12/2023 by Antelmo Sharma MD Other Heart [employer] - JAIME LI [id number] / [id number] / Description:JAIME LIFESCIE NCES ABBY 3 ULTRA [...] metabolic panel (non-fasting) (07/08/2023 11:56 AM EST) [facility] Glucose 93 65 - 199 mg/dL [facility] Comment:Diabetes: >=200 mg/d L plus symptoms Blood Urea Nitrogen 19(H) 8 - 18 mg/dL [facility] Creatinine 0.81 0.70 - 1.20 mg/dL [facility] Sodium 142 135 - 145 mmol/L [facility] Potassium 3.8 3.5 - 5.0 mmol/L [facility] Comment: Please note: ??Patients with WBC >100,000 may have falsely elevated Potassium levels. ??For accurate Potassium quantification in these patients send serum separator tube (gold top) for subsequent determinations. ??Contact the Clinical Chemistry Laboratory if there are any questions. Chloride 104 98 - 107 mmol/L [facility] Carbon Dioxide 26 22 - 31 mmol/L [facility] Anion Gap 12 5 - 15 mmol/L [facility] Calcium 10.2 8.5 - 10.5 mg/dL [facility] Protein, Total 7.4 6.1 - 8.0 g/dL [facility] Albumin 4.1 3.2 - 5.2 g/dL [facility] Aspartate Aminotransferase 24 0 - 30 unit/L [facility] Alanine Aminotransferase 12 0 - 30 unit/L [facility] Alkaline Phosphatase 93 35 - 105 unit/L [facility] Bilirubin, Total 0.3 0.2 - 1.3 mg/dL [facility] Est Glomerular Filtration Rate 80 >=60 mL/min/1. 73 m?? [facility] Comment: This patient's estimated GFR [...] Lab Alirio Esparza MD CHEMISTRY ORDERABLE S [facility] [place] [address] * DXA Central Spine, Hip, and/or Whole Body (Generic) (06/05/2021 11:58 AM EDT) PT CLASS O RAD ADMITDTTM RAD PT RAD INFO [id number]^E VERETT^DEBORAH ^E RAD EXAM DESC XDXAC^DEXA SCAN [...] who have questions please contact the health hospice care sales consultant that requested your imaging first. ? [...] patients who have questions please contactthe health hospice care sales consultant that requested your imaging first. Electronically signed by: Rocael Villatoro MD, [facility]([phone]), at 06/05/2021 12:[address] DEPARTMENT DISPATCHER IMG DEXA ORDERABLES * Mammo Screening Cad Bilateral (06/05/2021 11:42 AM EDT) PT CLASS O RAD ADMITDTTM RAD PT RAD INFO [id number]^EV ERETT^DEBORAH^E RAD EXAM DESC MADDSC^SCREEN MAMMO BL [...] who have questions please contact the health hospice care sales consultant that requested your imaging first. ? Electronically signed by: Rocael Villatoro MD, [facility] ([phone]), at 06/05/2021 1:27 PM Narrative 06/05/2021 1:27 [...] patients who have questions please contactthe health hospice care sales consultant that requested your imaging first. Electronically signed by: Rocael Villatoro MD, [facility]([phone]), at 06/05/2021 1:27 PM Deborah Quiroga APRN [...] capacity to make decision: Yes Care Teams Rubber Mill Tender Relationship Specialty Start Date End Date Magdalena Acosta MD [address] [place] [address] PCP - General Family Medicine 02/05/23
--- OUTSIDE RECORDS SUMMARY | 2024-05-11 14:37 | XMS_ITS | Encounter Summary ---
Author Organization [facility] [place] [address] Care Team Providers Care Machine Assembler Name Role Phone Magdalena Acosta MD Primary Care Provider [phone] Encounter Details Date Type Department Care Team [...] [facility] [place] [address] [place] [address] 05/12/2024 10:00 AM EDT Office Visit Hematology [place] [address] Markel Borjas MD [facility] [address] [place] [address] 03/01/2025 4:15 PM EDT Office Visit Dermatology at [place] [address] [place] [address] Marek Bonilla MD [address], [address] [place] [address] documented as of this encounter Visit Diagnoses Not on filedocumented in this encounter Care Teams Machine Assembler Relationship Specialty Start Date End Date Magdalena Acosta MD [address] [place] [address] PCP - General Family Medicine 02/05/23 documented as of this encounter
--- OUTSIDE RECORDS SUMMARY | 2024-05-11 14:37 | XMS_ITS | Encounter Summary ---
[place] [address] Care Team Providers Care Manager Field Service Name Role Phone Magdalena Acosta MD Primary Care Provider [phone] Reason for Visit * Reason Onset Date Comments Pre Procedure Call 03/01/2024 DAPT hold for EGD and colo? Encounter Details Date Type Department Care Team (Late st Contact Info) Description 03/01/2024 Telephone Cardiology at [address] [phone] Cynthia Monsalve RN Pre Procedure Call (DAPT [...] safe. Jay Message above left with Yenifer (market development manager), who would be leaving this note in patient's chart for providers to schedule patient. No further questions or needs at this time. This nurse stated, note will be placed regarding this call in our chart for patient. Kezia Whitney RN, BSN Ambulatory Cardiology Clinic, [facility] [phone] * Telephone Encounter - Cynthia Monsalve RN - 03/01/2024 2:09 PM EDT Nurse Veronica from [facility] called, requesting a hold on ASA and/or Plavix for the patient's anticipated EGD and colonoscopy. -Cynthia Monsalve RN documented in this encounter Plan of Treatment Upcoming Encounters Date Type Department Care Team (Late st Contact Info) Description 05/12/2024 9:00 AM EDT Laboratory Appointment Lab at [facility] Hematology Oncology [address] [place] [address] 05/12/2024 10:00 AM EDT Office Visit Hematology [place] [address] Markel Borjas MD [facility] [address] HEMATOLOGY [place] [address] 03/01/2025 4:15 PM EDT Office Visit Dermatology at [place] [address] [place] [address] Marek Bonilla MD [address], [place] [address] documented as of this encounter Visit Diagnoses Not on filedocumented in this encounter Care Teams Manager Field Service Relationship Specialty Start Date End Date Magdalena Acosta MD [address] [place] [address] PCP - General Family Medicine 02/05/23 documented as of this encounter
--- OUTSIDE RECORDS SUMMARY | 2024-05-11 14:37 | XMS_ITS | Encounter Summary ---
Author Organization [facility] [place] [address] Care Team Providers Care Womens Volleyball Coach Name Role Phone Magdalena Acosta MD Primary Care Provider [phone] Encounter Details Date Type Department Care Team [...] [facility] H[facility] Oncology [address] [place] [address] 05/12/2024 10:00 AM EDT Office Visit Hematology [place] [address] Markel Borjas MD [facility] [address] [place] [address] 03/01/2025 4:15 PM EDT Office Visit Dermatology at [place] [address] [place] [address] Marek Bonilla MD [address], [place] [address] documented as of this encounter Visit Diagnoses Not on filedocumented in this encounter Care Teams Womens Volleyball Coach Relationship Specialty Start Date End Date Magdalena Acosta MD [address] [place] [address] PCP - General Family Medicine 02/05/23 documented as of this encounter
--- OUTSIDE RECORDS SUMMARY | 2024-05-11 14:37 | XMS_ITS | Encounter Summary ---
Author Organization [facility] [place] [address] Care Team Providers Care City Surveyor Name Role Phone Magdalena Acosta MD Primary Care Provider [phone] Encounter Details Date Type Department Care Team [...] [facility] Hematology Oncology [address] [place] [address] 05/12/2024 10:00 AM EDT Office Visit Hematology [place] [address] Markel Borjas MD [facility] [address] [place] [address] 03/01/2025 4:15 PM EDT Office Visit Dermatology at [place] [address] [place] [address] Marek Bonilla MD [address], [place] [address] documented as of this encounter Visit Diagnoses Not on filedocumented in this encounter Care Teams City Surveyor Relationship Specialty Start Date End Date Magdalena Acosta MD [address] [place] [address] PCP - General Family Medicine 02/05/23 documented as of this encounter
--- OUTSIDE RECORDS SUMMARY | 2024-05-11 14:37 | XMS_ITS | Encounter Summary ---
Author Organization [facility] [place] [address] Care Team Providers Care Track Dresser Name Role Phone Magdalena Acosta MD Primary Care Provider [phone] Encounter Details Date Type Department Care Team [...] [facility] Hemat[facility] Oncology [address] [place] [address] 05/12/2024 10:00 AM EDT Office Visit Hematology [place] [address] Markel Borjas MD [facility] [address] HEMATOLOGY [place] [address] 03/01/2025 4:15 PM EDT Office Visit Dermatology at [place] [address] [place] [address] Marek Bonilla MD [address], [place] [place] [address] documented as of this encounter Visit Diagnoses Not on filedocumented in this encounter Care Teams Track Dresser Relationship Specialty Start Date End Date Magdalena Acosta MD [address] [place] [address] PCP - General Family Medicine 02/05/23 documented as of this encounter
--- OUTSIDE RECORDS SUMMARY | 2024-05-11 14:37 | XMS_ITS | Encounter Summary ---
Author Organization [facility] [place] [address] Care Team Providers Care Office Associate Name Role Phone Magdalena Acosta MD Primary Care Provider [phone] Reason for Referral * Diagnostic Test (Routine) - New Request Specialty Diagnoses / Procedures Referred By Contac t Referred To Contact Cardiology Diagnoses S/P TAVR (transcatheter aortic valve replacement) Procedures Echocardiogram Transthoracic Antelmo Sharma MD [facility] [place] [address] [facility] [place] [address] Referral ID Status Reason Start Date Expiration Date Visits Requested Visits Authorized [id number] New Request Specialty Service Requested 12/16/2023 12/15/2024 1 1 Encounter Details Date Type Department Care Team (Late st Contact Info) Description 12/16/2023 Orders Only Cardiology at [address] [address] Antelmo Sharma MD [facility] [address] S/P TAVR (transcatheter aortic valve [...] [facility] Hematology Oncology [address] [place] [address] 05/12/2024 10:00 AM EDT Office Visit Hematology [place] [address] Markel Borjas MD [facility] [address] [place] [address] 03/01/2025 4:15 PM EDT Office Visit Dermatology at [place] [address] [address] Marek Bonilla MD [address], [place] [address] Scheduled Orders Name Type Priority Associated Diagnoses [...] neutropenia documented in this encounter Care Teams Office Associate Relationship Specialty Start Date End Date Magdalena Acosta MD [address] [place] [address] PCP - General Family Medicine 02/05/23 documented as of this encounter
--- OUTSIDE RECORDS SUMMARY | 2024-05-11 14:37 | XMS_ITS | Encounter Summary ---
Author Organization [facility] [place] [address] Care Team Providers Care Lens Matcher Name Role Phone Magdalena Acosta MD Primary Care Provider [phone] Encounter Details Date Type Department Care Team [...] [facility] [place]ology Oncology [address] [place] [address] 05/12/2024 10:00 AM EDT Office Visit Hematology [place] [address] Markel Borjas MD [facility] [address] [place] [address] 03/01/2025 4:15 PM EDT Office Visit Dermatology at [place] [address] [place] [address] Marek Bonilla MD [address], [place] [address] documented as of this encounter Visit Diagnoses Not on filedocumented in this encounter Care Teams Lens Matcher Relationship Specialty Start Date End Date Magdalena Acosta MD [address] [place] [address] PCP - General Family Medicine 02/05/23 documented as of this encounter
--- OUTSIDE RECORDS SUMMARY | 2024-05-11 14:37 | XMS_ITS | Encounter Summary ---
[place] [address] Care Team Providers Care Professor Of Environmental Science Name Role Phone Magdalena Acosta MD Primary Care Provider [phone] Encounter Details Date Type Department Care Team (Latest Contact Info) Description 10/05/2023 10:52 AM EST - 10/05/2023 11:59 PM [facility] Hospital Encounter [place] [address] Mixed connective tissue disease Discharge Disposition: Home Social History Tobacco Use Types Packs/Day Years Used Date Smoking Tobacco: Never Smokeless Tobacco: Never Alcohol Use Standard Drinks/Week Comments No 0 (1 standard drink = 0.6 oz pur e alcohol) none [facility] Inpatient Questions Answer Date Recorded Does Anyone [...] [facility] [place] On[place] [address] [place] [address] 05/12/2024 10:00 AM EDT Office Visit Hematology [place] [address] Markel Borjas MD [facility] DR H[place]AT[place] [address] 03/01/2025 4:15 PM EDT Office Visit Dermatology at [place] [address] [place] [address] Marek Bonilla MD [address], [place] [address] documented as of this encounter Procedures Procedure [...] PFT FEV1/FVC Pre-BD Z-Score 0 COMPAS PFT MKF30-83 Actual Pre-BD 2.41 % COMPAS PFT YMZ51-66 Predicted 1.8 % COMPAS PFT ZCK42-30 Pre-BD % of Predicted 134 % COMPAS PFT SBY90-56 Pre-BD Z-Score 0.81 COMPAS PFT DLCO Hb [...] neutropenia documented in this encounter Care Teams Professor Of Environmental Science Relationship Specialty Start Date End Date Magdalena Acosta MD [address] [place] [address] PCP - General Family Medicine 02/05/23 documented as of this encounter
--- OUTSIDE RECORDS SUMMARY | 2024-05-11 14:37 | XMS_ITS | Encounter Summary ---
[place] [address] Care Team Providers Care Scientific Affairs Manager Name Role Phone Magdalena Acosta MD Primary Care Provider [phone] Reason for Visit * Reason Comments Annual Exam Encounter Details Date Type Department Care Team (Late st Contact Info) Description 02/22/2024 4:15 PM EDT Office Visit Dermatology at [address] [phone] Marek Bonilla MD [address] [facility] A DERMATOLOGY [place], [place] [phone] Seborrheic keratosis; Rosacea; Nevus Social History Tobacco [...] cutaneous and ocular 3. Previously told by it program engagement director that she had corneal tears from [...] [facility] Hematology Oncology [address] [place] [address] 05/12/2024 10:00 AM EDT Office Visit H[place]ology [place] [address] Markel Borjas MD [facility] [address] HEMATOLOGY [place] [address] 03/01/2025 4:15 PM EDT Office Visit Dermatology at [place] [address] [facility] [place] [address] Marek Bonilla MD [address] [facility] [place] [address] documented as of this encounter Visit Diagnoses Diagnosis Seborrheic keratosis Other seborrheic keratosis Rosacea Nevus Benign neoplasm of skin, site unspecified Chronic idiopathic neutropenia Other neutropenia documented in this encounter Care Teams Scientific Affairs Manager Relationship Specialty Start Date End Date Magdalena Acosta MD [address] [place] [address] PCP - General Family Medicine 02/05/23 documented as of this encounter
--- OUTSIDE RECORDS SUMMARY | 2024-05-11 14:37 | XMS_ITS | Encounter Summary ---
Author Organization [facility] Address [facility] [place] [address] Care Team Providers Care Medical Billing Service Name Role Phone Magdalena Acosta MD Primary Care Provider [phone] Encounter Details Date Type Department Care Team (Late st Contact Info) Description 07/29/2023 11:00 AM EST Office [place] [address] Magdalena Peralta MD [facility] [place] [address] Mixed connective tissue disease Social History Tobacco [...] Rheumatology Outpatient Follow Up Note PCP: Magdalena cAosta MD Purnima Thacker is a 67 y.o. female who we are seeing for the continuing management of mixed connective tissue disease. Rheum History: - developed Raynaud's phenomenon, diffuse weakness - consistent history of leukopenia and neutropenia on review of labs - Work up initiated by Neurology: FRANCISCO 1:5120 speckled; VIC negative; Myositis panel with LUG BREAKER [employer] WIRE PULLER ab 149.1 (positive); Anti U1RNP IgG 119; [...] Viramontes. Magdalena Peralta MD Rheumatology Fellow Pager: [phone] * Kia Viramontes DO - 07/29/2023 11:00 [...] [facility] [place] Oncology [address] [place] [address] 05/12/2024 10:00 AM EDT Office Visit Hematology [place] [address] Markel Borjas MD [facility] [address] [place] [address] 03/01/2025 4:15 PM EDT Office Visit Dermatology at [place] [address] [place] [address] Marek Bonilla MD [address] [facility] [place] [address] documented as of this encounter Results * [...] PFT FEV1/FVC Pre-BD Z-Score 0 COMPAS PFT JKH11-88 Actual Pre-BD 2.41 % COMPAS PFT VQI72-12 Predicted 1.8 % COMPAS PFT HSH86-65 Pre-BD % of Predicted 134 % COMPAS PFT HRV86-48 Pre-BD Z-Score 0.81 COMPAS PFT DLCO Hb [...] documented in this encounter Care Teams Medical Billing Service Relationship Specialty Start Date End Date Magdalena Acosta MD [address] [place] [address] PCP - General Family Medicine 02/05/23 documented as of this encounter
--- OUTSIDE RECORDS SUMMARY | 2024-05-11 14:37 | XMS_ITS | Encounter Summary ---
[place] [address] Care Team Providers Care Dressing Room Attendant Name Role Phone Magadlena Acosta MD Primary Care Provider [phone] Reason for Referral * Consultation (Routine) - Authorized Specialty Diagnoses / Procedures Referred By Contac t Referred To Contact Hematology and Oncology Diagnoses Anemia, unspecified type Consuelo Guerrero DO [address] [place] [address] [address] [place] [address] [facility] [address] [place] [address] Referral ID Status Reason Start Date Expiration Date Visits Requested Visits Authorized [id number] Authorized Consult, Test & Treat 04/11/2024 04/11/2025 1 1 Encounter Details Date Type Department Care Team (Late st Contact Info) Description 04/11/2024 Transcribe Orders eDH Incoming Referrals [phone] Consuelo Guerrero DO [address] [place] [address] [address] [place] [address] Anemia, unspecified type Social History Tobacco Use Types Packs/Day Years Used Date Smoking Tobacco: Never Smokeless Tobacco: Never Alcohol Use Standard Drinks/Week Comments No 0 (1 standard drink = 0.6 oz pur e alcohol) none [facility] Inpatient Questions Answer Date Recorded Does [...] [facility] Hematology Oncology [address] [place] [address] 05/12/2024 10:00 AM EDT Office Visit Hematology [place] [address] Markel Borjas MD [facility] DR [place] [address] 03/01/2025 4:15 PM EDT Office Visit Dermatology at [place] [address] [place] [address] Marek Bonilla MD [address] [facility] [place] [address] Scheduled Referrals Name Type Priority Associated Diagnoses Orde r Schedule Referral to Hematology and Oncology Outpatient Referral Routine Anemia, unspecified type Ordered: 04/11/2024 documented as of this encounter Visit Diagnoses Diagnosis Anemia, unspecified type Chronic idiopathic neutropenia Other neutropenia documented in this encounter Care Teams Dressing Room Attendant Relationship Specialty Start Date End Date Magdalena Acosta MD [address] [place] [address] PCP - General Family Medicine 02/05/23 documented as of this encounter
--- OUTSIDE RECORDS SUMMARY | 2024-05-11 14:37 | XMS_ITS | Encounter Summary ---
[place] [address] Care Team Providers Care Crystal Gazer Name Role Phone Magdalena Acosta MD Primary Care Provider [phone] Encounter Details Date Type Department Care Team (Latest Contact Info) Description 07/08/2023 12:35 PM EST Laboratory Appointment Lab [address] [place] [address] S/P TAVR (transcatheter aortic valve [...] at [facility] Hematology Oncology [address] [place] [address] 05/12/2024 10:00 AM EDT Office Visit Hematology [place] [phone] Markel Borjas MD [facility] [address] [place] [address] 03/01/2025 4:15 PM EDT Office Visit Dermatology at [place] [address] [place] [id number] Marek Bonilla MD [address], [place] [address] documented as of this encounter Procedures Procedure [...] AM EST) Neutrophil % 73.2 % [facility] Neutrophil Absolute 3.40 1.70 - 6.10 x10(3)/mc L [facility] Lymph % 16.1 % [facility] Lymphocytes Abs 0.8(L) 0.9 - 3.2 x10(3)/mc L [facility] Monocyte % 9.7 % [facility] Monocyte Abs 0.4 0.3 - 0.9 x10(3)/mc L [facility] Eos % 0.4 % [facility] Eosinophils Abs 0.0 0.0 - 0.4 x10(3)/mc L [facility] Basophil % 0.4 % [facility] Baso Absolute 0.0 0.0 - 0.1 x10(3)/ L [facility] Immature Gran % 0.20 % [facility] Comment: Immature granulocytes(IG's)percentage and absolute count will include metamyelocytes, myelocytes, and promyelocytes. Blood smears from CBCs yielding IG's will be scanned manually for concordance. If this scan disagrees with the automated IG or if promyelocytes are noted, a manual differential will be performed. Immature Gran Absolute 0.01 0.00 - 0.04 x10(3)/ L [facility] Blood 07/08/2023 11:5 6 AM EST 07/08/2023 12:02 PM EST Narrative Resulting Agency Comment Spec In Lab Minh [facility]EMATOLOGY ORDERABLE S [facility] [place] [address] * (ABNORMAL) Hemogram (07/08/2023 11:56 AM EST) White Blood Cell 4.6 4.0 - 9.5 x10(3)/[facility] Red Blood Cell 3.34(L) 4.00 - 5.21 x10(6)/[facility] Hemoglobin 11.0(L) 11.7 - 15.5 g/dL [facility] Hematocrit 33.2(L) 35.7 - 45.8 % [facility] Mean Cell Volume 99.4(H) 82.6 - 94.4 fL [facility] Mean Cell Hemoglobin 32.9(H) 27.1 - 32.0 pg [facility] Mean Cell Hemoglobin Concentration 33.1 31.7 - 35.0 g/dL [facility] Platelet 166 145 - 357 x10(3)/[facility] RDW Standard Deviation 47.1(H) 37.0 - 46.0 fL [facility] RDW coefficient of variation 13.0 11.5 - 14.1 % [facility] Mean Platelet Volume 9.0 7.6 - 12.9 fL [facility] NRBC% auto 0.0 % [facility] ITAL [facility] NRBC Absolute 0.000 0.000 - 0.000 x10(3)/ L [facility] Blood 07/08/2023 11:5 6 AM EST 07/08/2023 12:02 PM EST Narrative Resulting Agency Comment Spec In Lab Minh [facility]EMATOLOGY ORDERABLE S [facility] [place] [address] * (ABNORMAL) Comprehensive metabolic panel (non-fasting) (07/08/2023 11:56 AM EST) Glucose 93 65 - 199 mg/dL [facility] Comment:Diabetes: >=200 mg/d L plus symptoms Blood Urea Nitrogen 19(H) 8 - 18 mg/dL [facility] Creatinine 0.81 0.70 - 1.20 mg/dL [facility] Sodium 142 135 - 145 mmol/L [...] - 107 mmol/L [facility] Carbon Dioxide 26 22 - 31 [...] Lab Alirio Esparza MD [place] [address] documented in this encounter Visit Diagnoses Diagnosis S/P TAVR (transcatheter aortic valve replacement) Severe aortic stenosis Aortic valve disorders Chronic idiopathic neutropenia Other neutropenia documented in this encounter Care Teams Crystal Gazer Relationship Specialty Start Date End Date Magdalena Acosta MD [address] [place] [address] PCP - General Family Medicine 02/05/23 documented as of this encounter
--- OUTSIDE RECORDS SUMMARY | 2024-05-11 14:38 | XMS_ITS | Encounter Summary ---
Author Organization [facility] [place] [address] Care Team Providers Care Ship Fitter Name Role Phone Magdalena Acosta MD Primary Care Provider [phone] Encounter Details Date Type Department Care Team [place] [facility] [place] [address] [place] [address] 05/12/2024 10:00 AM EDT Office Visit [place]ology [place] [address] Markel Borjas MD [facility] [address] HEMATOLOGY [place] [address] 03/01/2025 4:15 PM EDT Office Visit Dermatology at [place] [address] [place] [phone] Marek Bonilla MD [address], [address] [place] [address] documented as of this encounter Visit Diagnoses Not on filedocumented in this encounter Care Teams Ship Fitter Relationship Specialty Start Date End Date Magdalena Acosta MD [address] [place] [address] PCP - General Family Medicine 02/05/23 documented as of this encounter
--- OUTSIDE RECORDS SUMMARY | 2024-05-11 14:38 | XMS_ITS | Encounter Summary ---
[place] [address] Care Team Providers Care Firer Locomotive Name Role Phone Magdalena Acosta MD Primary Care Provider [phone] Reason for Visit * Auth/Cert (Routine) Specialty Diagnoses / Procedures Referred By Contac t Referred To Contact Diagnoses Symptomatic severe aortic stenosis with low ejection fraction NSTEMI, CHF Haris Chua MD [facility] [address] [facility] Referral ID Status Reason Start Date Expiration Date Visits Re quested Visits Authorized [id number] 1 1 Encounter Details Date Type Department Care Team (Late st Contact Info) Description 05/12/2023 7:35 AM EDT Anest[place] [address] Lynda Mcgowan MD [facility] [place] [address] Alie Park MD [facility] [place] [address] Anesthesia Record Procedure Summary Procedure Name Responsible [...] cephalic vein (lateral side of arm), left; [id number] catheter system; Anatomical Landmarks; US Not Used; 22 gauge, 1 in length; Nga VILAL RN; tolerated well; 0; site symptomatic, catheter/device [...] Noreen Deutsch RN 05/15/23 184 by Luis Fleipe Parra RN LDA Cath/EP Sheath 05/12/23; 0733; 14 Austrian (Fr); Right; Femoral; Arterial 05/12/23 0733 by Guerda Bender, RN 05/12/23 0830 by Guerda Bender RN LDA Cath/EP Sheath 05/12/23; 0734; 6 Austrian (Fr); Right; Femoral; Venous 05/12/23 0734 by Guerda Bender RN 05/12/23 0817 by Guerda Bender RN LDA Cath/EP Sheath 05/12/23; 0734; 7 Austrian (Fr); Left; Femoral; Arterial 05/12/23 0734 by Guerda Bender, RN 05/12/23 0837 by Guerda Bender RN LDA Cath/EP Sheath 05/12/23; 0734; 6 Austrian (Fr); Left; Femoral; Venous 05/12/23 0734 by [...] Procedure Summary Date: 05/12/23 Room / Location: [facility] / [facility] CATH [facility]S Anesthesia Start: 734 Anesthesia [...] All Anesthesia Providers: Anesthesiologist: Lynda Mcgowan MD Assembler Clip On Sunglasses: Nico Graham MD Vitals Value Taken Time [...] 05/08/2023 ??? Mild coronary artery disease by [facility] 11/09/2022 05/08/2023 ??? Heart failure with [...] IMG S&I N/A 11/09/2022 CORONARY ANGIOGRAPHY; [facility],POSSIBLE PCI (WRVU 5.6) performed by Nitesh Escobedo MD at [facility] CATH LABS ??? PRO AORTOPLAS FOR SUPRAVALV STEN N/A 09/21/2016 @AORTOPLASTY FOR SUPRAVALVULAR STENOSIS (WRVU 29.33) performed by Alirio Esparza MD at [facility] MAIN OR ??? PRO REPLACEMENT PROSTHETIC AORTIC VALVE OPEN W CARDIOPULMONARY BYPASS HOMOGRF/STENT N/A 09/21/2016 @REPLACE AORTIC VALVE, OPEN, W\CPB, W\PROSTHETIC VALVE (WRVU 41.32) performed by Alirio Esparza MD at [facility] MAIN OR Social History Tobacco Use [...] 3 general, with a(n) intravenous induction Add-on [id number] TAVR. In cardiogenic shock. Has arterial line, [...] [facility] Hematology Oncology [address] [place] [address] 05/12/2024 10:00 AM EDT Office Visit Hematology [place] [address] Markel Borjas MD [facility] [address] HEMATOLOGY [place] [address] 03/01/2025 4:15 PM EDT Office Visit Dermatology at [place] [address] [place] [address] Marek Bonilla MD [address], [place] [address] documented as of this encounter Visit Diagnoses [...] mL/hr documented in this encounter Care Teams Firer Locomotive Relationship Specialty Start Date End Date Magdalena Acosta MD [address] [place] [address] PCP - General Family Medicine 02/05/23 documented as of this encounter
--- OUTSIDE RECORDS SUMMARY | 2024-05-11 14:38 | XMS_ITS | Encounter Summary ---
Author Organization [facility] [place] [address] Care Team Providers Care Vamp Liner Name Role Phone Magdalena Acosta MD Primary Care Provider [phone] Reason for Referral * Diagnostic Test (Routine) - Closed Specialty Diagnoses / Procedures Referred By Contac t Referred To Contact Cardiology Diagnoses S/P TAVR (transcatheter aortic valve replacement) Procedures Echocardiogram Transthoracic Vinod Juárez PA [facility] [place] [address] [facility] [place] [address] Referral ID Status Reason Start Date Expiration Date V isits Requested Visits Authorized [id number] Closed Specialty Service Requested 05/22/2023 05/21/2024 1 1 * Home Health Care (Routine) - Closed Specialty Diagnoses / Procedures Referred By Contac t Referred To Contact Diagnoses S/P TAVR (transcatheter aortic valve replacement) Alirio Hudson MD [facility] CARDIOTHORACIC SURGERY [address] [facility] & [address] [place] [address] Referral ID Status Reason Start Date Expiration Date V isits Requested Visits Authorized [id number] Closed Consult, Test & Treat 05/22/2023 11/18/2023 999 999 * Consultation (Routine) - Closed Specialty Diagnoses / Procedures Referred By Crispin maxwell Referred To Contact Cardiology Diagnoses S/P TAVR (transcatheter aortic valve replacement) Alirio Hudson MD [facility] [place] [address] Cardiac Rehab, [address] [place] [address] Referral ID Status Reason Start Date Expiration Date V isits Requested Visits Authorized [id number] Closed Consult, Test & Treat 05/22/2023 11/18/2023 36 36 * Diagnostic Test (Routine) - Closed Specialty Diagnoses / Procedures Referred By Crispin maxwell Referred To Contact Cardiology Diagnoses Aortic valve stenosis, etiology of cardiac valve disease unspecified Procedures Echocardiogram Transthoracic Transesophageal Echocardiogram (YUSRA) Radha Hollins MD [facility] [place] [address] [facility] [place] [address] Referral ID Status Reason Start Date Expiration Date V isits Requested Visits Authorized [id number] Closed Specialty Service Requested 05/11/2023 05/10/2024 1 1 Reason for Visit * Auth/Cert (Routine) Specialty Diagnoses / Procedures Referred By Crispin maxwell Referred To Contact Diagnoses Symptomatic severe aortic stenosis with low ejection fraction NSTEMI, CHF Enrique Chua MD [facility] [place] [address] [facility] Referral ID Status Reason Start Date Expiration Date Visits Re quested Visits Authorized [id number] 1 1 Encounter Details Date Type Department Care Team (Latest Contact Info) Description 05/08/2023 9:14 AM EDT - 05/22/2023 10:46 AM EDT Hospital Encounter Heart and Vascular Unit Level 4 [place] [address] Enrique Chua MD [facility] [place] [address] Juan Luis Gonzalez MD [facility] [place] [address] Radha Hollins MD [facility] [place] [address] Alirio Hudson MD S/P TAVR (transcatheter aortic valve replacement) (Primary Dx); Aortic valve stenosis, etiology of cardiac valve disease unspecified; Symptomatic severe aortic stenosis with low ejection fraction; Heart failure with reduced ejection fraction due to heart valve disease; Mild coronary artery disease by [facility] 11/09/2022; Mixed connective tissue disease; [...] PCP, Magdalena Acosta MD, or Primary Supervisor Pipe Joints, Avis Mejia MD, in ~ 7-10 days. Patient to follow up with Hotel Manager, Dr. Antelmo Sharma, in 2 weeks with an EKG, Echo, CBC, and CMP. Patient to follow up with Nephrology, their office to arrange. Fkly-Cnpuxa-nv interval: After initial 30 day follow-up appointment , all TAVR patients will follow-up again in one year with an echo. 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 Secondary Diagnoses: Active Hospital Problems Diagnosis S/P TAVR (transcatheter aortic valve replacement) Cardiogenic shock Symptomatic severe aortic stenosis with low ejection fraction Mild coronary artery disease by [facility] 11/09/2022 Heart failure with reduced [...] Tube Placement Right 05/18/2023 Laure Ricks PA [facility] INTERVENTIONL RAD PRG CATH PLMT LEFT HEART CATH & ARTS W/INJ & ANGIO IMG S&I N/A 11/09/2022 CORONARY ANGIOGRAPHY; W [facility],POSSIBLE PCI (WRVU 5.6) performed by Mario Alberto Escobedo MD at [facility] CATH LABS PRG COMBINED RIGHT & LEFT HEART CATH W/INJ L VENTRICULOGRAPHY, IMG S&I N/A 05/12/2023 COMBINED RIGHT & LEFT HEART CATH,INC INJ FOR L VENTRICULOGRAPHY (WRVU 5.99) performed by Antelmo Sharma MD at [facility] CATH LABS PRO AORTOPLAS FOR SUPRAVALV STEN N/A 09/21/2016 @AORTOPLASTY FOR SUPRAVALVULAR STENOSIS (WRVU 29.33) performed by Alirio Hudson MD at [facility] MAIN OR PRO REPLACE AORTIC VALVE (TAVR/FEDERICO)PERC FEMORAL ARTERY APPROACH 05/12/2023 @TRANSCATHETER AORTIC VALVE REPLACEMENT (TAVR), PERCUTANEOUS FEMORAL (WRVU 22.47) performed by Alirio Hudson MD at [facility] CATH LABS PRO REPLACEMENT PROSTHETIC AORTIC VALVE OPEN W CARDIOPULMONARY BYPASS HOMOGRF/STENT N/A 09/21/2016 @REPLACE AORTIC VALVE, OPEN, W\CPB, W\PROSTHETIC VALVE (WRVU 41.32) performed by Alirio Hudson MD at [facility] MAIN OR Prior To Admission [...] Major Procedures/Operations: 05/12/23: Successful right transfemoral TAVR Raggh-ft-Rpaot with a 23 mm Lai 3 THV. [...] TAVR and she was brought to the chemical processing laborer the following morning where Drs. [...] if you have questions. Please call your Hotel Manager's office if you have any discharge or drainage from your procedural sites. Your Hotel Manager, Dr. Antelmo Sharma and/or the Cafeteria Cashier may be reached at . Antibiotic prophylaxis: You will need to take antibiotics prior to many invasive tests and treatments, such as dental cleaning, which should be done every 6 months. Your primary care physician or your dentist can prescribe this medication. Please refer to the card with the [place] [employer] Guidelines for more information. You have been provided with a copy of this card. Please refer to the [place] [employer] Guidelines for more information. Good [...] should resume a low fat, low cholesterol, [place] [employer] Diet Driving: No restrictions. Shower/Bath: You may shower daily. No baths, soaking, or swimming for the first week. Wound care: Wash the sites daily with soap and rinse well, pat dry. Assess for any signs of infection such as increased redness, pain, warmth or drainage. Please call your academic success coordinator's office if you have any discharge or drainage from your procedural sites. If there is a lot of swelling, apply mamta wraps during the day and remove at bedtime. Elevate your legs when you are sitting. Home oxygen therapy: N/A Follow up appointments: Please schedule a follow-up appointment with your PCP, Magdalena Acosta MD, or Primary Supervisor Pipe Joints in ~ 7-10 days. You have a follow-up appointment with your Hotel Manager, Dr. Antelmo Sharma, in 2 weeks with an EKG, Echo, and labs prior to your appointment. You will need follow-up with Nephrology, their office will arrange. Wvza-Qeejvg-al interval: After initial 30 day follow-up appointment [...] AM Magdalena Peralta MD Rheumatology at [facility] Arrive at: [employer] [facility] [address] [phone] 02/11/2024 2:00 PM Marek Bonilla MD Dermatology at [place] Arrive at: [facility] [address] [phone] Future Orders Complete By Expires Type and Screen Future Surgery, [facility] SAME DAY PROGRAM ONLY) [[id number] Custom] 05/11/2023 Process Instructions: This test is intended ONLY for patients with upcoming surgery for testing prior to the day of surgery obtained through the same day program (4V or SDP). For ALL OTHER PATIENTS, order a Type and Screen (SYN597) This order includes the physician order for an ABO Recheck if requested by the Blood Bank. Scheduling Instructions: Comments: Questions: Date of surgery: CBC (with Diff) [[id number] Custom] 06/05/2023 12/05/2023 Process Instructions: INCLUDES: WBC, RBC, Hgb, Hct, Platelets, RBC Indices and Differential Scheduling Instructions: Comments: Questions: Comprehensive metabolic panel (non-fasting) [LAB17 Custom] 06/05/2023 08/20/2023 Process Instructions: INCLUDES: Calcium, T Protein, Albumin, AST, ALT, Alk Phos, T Bili, BUN, Creat, GFR, Glucose, Lytes. Scheduling Instructions: Comments: Questions: Echocardiogram Transthoracic [57941 CPT(R)] 06/05/2023 12/05/2023 Process Instructions: Scheduling Instructions: Questions: Where will study be performed?: [facility] Clinics Does the patient have Congenital Heart Disease?: Does patient require sedation?: GA rationale: EKG 12 Lead [32176 CPT(R)] 06/05/2023 12/05/2023 Process Instructions: Scheduling Instructions: Questions: Which location will this be performed?: [place] Is a rhythm strip needed?: No [facility] Devices [EQ161 Custom] As directed Process Instructions: Scheduling Instructions: Questions: Device Needed: WALKER (E0143) Patient Height (cm): 154.9 cm (5' 0.98) Patient Weight: 75.4 kg (166 lb 3.2 oz) Diagnosis: Unsteady gait when walking Referral to Cardiac Rehab [XDT512 Custom] As directed Process Instructions: If no progress note charted, please enter Clinical details in comments. Scheduling Instructions: Questions: My question or request is: s/p TAVR. Cardiac rehab at [facility]. Referral to Home Health [REF34 Custom] As directed Process Instructions: If no progress note charted, please enter Clinical details in comments. Scheduling Instructions: Comments: DOCUMENTATION FOR VNA SERVICES PATIENT'S LOCATION: Purnima Thacker [address] [place] [phone] (home) Data Architect's Name: Self and brother Raymond In discussion with the attending physician, it is certified that this patient is under his/her careand that MD, or an MECHANICAL PRESS OPERATOR, ALUMINUM BOAT INSPECTOR, or PA who is working directly with him/her, had a dndt-vr-lmqh encounter that meets the physician sywi-za-rxjm encounter requirements with this patient on 05/22/2023. [...] for managing ADLs. HOME HEALTH CARE AGENCY: [facility]. [address] [place] [address] PHONE: [phone] FAX: [phone] Start of care: Ideally 24-48 hours after [...] Acosta MD [address] / [facility] [address] All VNA agencies which cover the area of patient's residence have been reviewed, either verbally joao writing, and patient has chosen the home health care agency noted. Questions: Disciplines Requested: Physical Therapy Occupational Therapy Discharge References/Attachments None Arrangements for VNA/home care: As above. (delete if no VNA) Signed: EKATERINA NAVARRETE [facility] Section of Cardiac Surgery Date: 05/22/2023 CC: Magdalena Acosta MD Moores MillMario Alberto MD [address] [place] [address] documented in this encounter Discharge Instructions * Patient Instructions* Vinod Juárez PA - 05/22/2023 9:32 AM EDT TAVR Discharge Instructions: Call your doctor if: You have a fever of greater than 101 degrees, shaking chills, if you develop redness or drainage from your procedure sites, or if you have questions. Please call your Hotel Manager's office if you have any discharge or drainage from your procedural sites. Your Hotel Manager, Dr. Antelmo Sharma and/or the Cafeteria Cashier may be reached at . Antibiotic prophylaxis: You will need to take antibiotics prior to many invasive tests and treatments, such as dental cleaning, which should be done every 6 months. Your primary care physician or your dentist can prescribe this medication. Please refer to the card with the [place] [employer] Guidelines for more information. You have been provided with a copy of this card. Please refer to the [place] [employer] Guidelines for more information. Good [...] should resume a low fat, low cholesterol, [place] [employer] Diet Driving: No restrictions. Shower/Bath: You may shower daily. No baths, soaking, or swimming for the first week. Wound care: Wash the sites daily with soap and rinse well, pat dry. Assess for any signs of infection such as increased redness, pain, warmth or drainage. Please call your academic success coordinator's office if you have any discharge or drainage from your procedural sites. If there is a lot of swelling, apply ammta wraps during the day and remove at bedtime. Elevate your legs when you are sitting. Home oxygen therapy: N/A Follow up appointments: Please schedule a follow-up appointment with your PCP, Magdalena Acosta MD, or Primary Supervisor Pipe Joints in ~ 7-10 days. You have a follow-up appointment with your Hotel Manager, Dr. Antelmo Sharma, in 2 weeks with an EKG, Echo, and labs prior to your appointment. You will need follow-up with Nephrology, their office will arrange. Jbtb-Ryspwg-gl interval: After initial 30 day follow-up appointment [...] ins ( tef) Haven Ba, PT Pager: [phone] Physical Therapy Inpatient Rehabilitation Department * Nico [...] 0600 and on the weekends please page [phone]. * Jory Paniagua - 05/20/2023 3:52 PM [...] vomiting Last Bowel Movement: 05/20/23 Jory Paniagua Computer Aided Design Drafter * Rashid Tong, OT - 05/20/2023 3:16 [...] Tube Placement Right 05/18/2023 Laure Ricks PA [facility] INTERVENTIONL RAD PRG CATH PLMT LEFT HEART CATH & ARTS W/INJ & ANGIO IMG S&I N/A 11/09/2022 CORONARY ANGIOGRAPHY; W [facility],POSSIBLE PCI (WRVU 5.6) performed by Mario Alberto Escobedo MD at [facility] CATH LABS PRG COMBINED RIGHT & LEFT HEART CATH W/INJ L VENTRICULOGRAPHY, IMG S&I N/A 05/12/2023 COMBINED RIGHT & LEFT HEART CATH,INC INJ FOR L VENTRICULOGRAPHY (WRVU 5.99) performed by Antelmo Sharma MD at [facility] CATH LABS PRO AORTOPLAS FOR SUPRAVALV STEN N/A 09/21/2016 @AORTOPLASTY FOR SUPRAVALVULAR STENOSIS (WRVU 29.33) performed by Alirio Hudson MD at [facility] MAIN OR PRO REPLACE AORTIC VALVE (TAVR/FEDERICO)PERC FEMORAL ARTERY APPROACH 05/12/2023 @TRANSCATHETER AORTIC VALVE REPLACEMENT (TAVR), PERCUTANEOUS FEMORAL (WRVU 22.47) performed by Alirio Hudson MD at [facility] CATH LABS PRO REPLACEMENT PROSTHETIC AORTIC VALVE OPEN W CARDIOPULMONARY BYPASS HOMOGRF/STENT N/A 09/21/2016 @REPLACE AORTIC VALVE, OPEN, W\CPB, W\PROSTHETIC VALVE (WRVU 41.32) performed by Alirio Hudson MD at [facility] MAIN OR Social History: Patient lives alone. Home Setup: Pt lives on one level with tub shower and three steps to enter. DME: none used NURSE INFORMATICS EDUCATOR Baseline ADL/Mobility: Independent with ADLs and IADLs. [...] awareness: WFL Vision & Perception: corrective lenses sales service coordinator Communication: WFL Range of motion, strength, [...] Discharge planning. Total Minutes, Occupational Therapy: 28 ([phone]) OT Evaluation Code Rationale: Diagnosis & Pertinent Co-Morbidities affecting Plan of Care: see PMHx Occupational Profile & Client History: Brief Expanded Extensive x Assessment of Occupational Performance: 1-3 performance deficits 3-5 performance deficits x 5 + performance deficits Clinical Decision Making: Low Moderate High x Clinical decision making of moderate complexity using standardized patient assessment instrument and measurable assessment of functional outcome. Pager: [phone] TONG MIKE OT 05/20/2023 Occupational Therapy Rehabilitation [...] 0600 and on the weekends please page [phone]. * Rylie Rodriguez MD - 05/19/2023 3:59 [...] seen and examined with the resident, Dr. Rodriguze. Please see the resident's note from today for details. I have reviewed the resident's note and agree with the exam, and assessment and plan. Cynthia Blackburn MD Nephrology Pager: [phone] * Diana Espino - 05/19/2023 1:49 PM EDT Batch And Furnace Manager Encounter Note Patient Name: Purnima Thacker : [id number] MR#: [id number] Admit Date: 05/08/2023 9:14 AM Hospital Day [...] as stated. Total Minutes, Physical Therapy: 38 ([id number]) Henrik Dale CANDY Navarrete Pager: [phone] Physical Therapy Inpatient Rehabilitation Department * Nico [...] 0600 and on the weekends please page [phone]. * Laure Ricks PA - 05/19/2023 7:56 [...] Ricks PA-C Interventional Radiology IR Team Pager [phone] * Consuelo Espinoza RN - 05/18/2023 4:13 PM EDT ANGIO NURSING DATABASE Name: Purnima Thacker Date of : 1955 AGE: 67 y.o. Address: [address] [place] [phone] (home) Mobile: No relevant phone numbers on [...] Mild coronary artery disease by [facility] 11/09/2022 I25.10 Heart failure with [...] and plan. Cynthia Blackburn MD Nephrology Pager: [phone] * Magdalena Puri, ANURAG - 05/18/2023 10:51 AM EDT Images from the original note were not included. [facility] [address] [place], [place] [address] STRUCTURAL HEART DISEASE CONSULTATION NOTE PRIMARY CARE [...] stenosis. She is now status post TAVR Cuiqj-xb-Ndudj with a 23 mm Lai 3 THV 05/12/[address] hSarma. Preliminary findings: Successful right transfemoral TAVR Vofde-or-Ktban with a 23 mm Lai 3 THV. [...] perforation. Interval Events: - 05/12 Transferred to [facility] post- TAVR for pressor/inotropic support (Levo, [...] Mild coronary artery disease by [facility] 11/09/2022 Heart failure with reduced [...] stenosis. She is now status post TAVR Nwtsc-jz-Ymnxv with a 23 mm Lai 3 THV [...] Magdalena Puri APRN Structural Heart Team Pager [phone] Team Office Please see addendum by Dr. Sharma for final plan and recommendations Associated attestation - Antelmo Sharma MD - 05/19/2023 10:52 PM EDT I have reviewed Magdalena Puri APRN's above history and I agree with the details as written. The assessment and plan were formulated in discussion with me and I agree with them as documented. Antelmo Sharma MD Pager [phone] * Nico Palacios PA - 05/18/2023 8:13 [...] 0600 and on the weekends please page [phone]. * Loli Hernandez, PT - 05/17/2023 5:27 [...] plan as stated. Time IN / OUT: 3778-3925 Total Minutes, Physical Therapy: 54 Billing Code: te-sx2, te-f, gait LOLI HERNANDEZ PT Pager: [phone] Physical Therapy Inpatient Rehabilitation Department * Cynthia [...] Well controlled. Cynthia Blackburn MD Nephrology Pager: [phone] * Mara Serrano, SUPERINTENDENT GENERAL - 05/17/2023 8:26 AM EDT Cardiac Surgery [...] 0600 and on the weekends please page [phone]. * Guerda Del Valle - 05/16/2023 10:44 AM EDT Nutrition Services Note - Low Nutrition Acuity Purnima Thacker is a 67 y.o. female Reason for intervention: hospital day 9 Nutrition Plan: Continue diet order Encourage good PO Lasix and Zofran noted Added special serve: open containers Monitor weight Patient scheduled for a hospital day 9 nutrition evaluation. Composition Worker met with pt at bedside. Pt reports that her appetite and PO has much improved since admission. Denies nausea/vomiting or trouble chewing/swallowing. Composition Worker provided snack list but pt not interested in adding snacks at this time. Her only concern was that she is worried that she will eat too much which will cause too much pressure in her stomach. Composition Worker assured pt and suggested eating smaller [...] Last Bowel Movement: 05/10/23 Guerda Del Valle Computer Aided Design Drafter * Vinod Juárez PA - 05/16/2023 10:19 [...] 0600 and on the weekends please page [phone]. * Michael Jeffers MD - 05/16/2023 8:11 AM EDT Images from the original note were not included. Hypertension-Nephrology Inpatient Follow-up Purnima Thacker [id number] 1955 ID: 67 y.o. old female seen [...] IRONSAT 12 (L) 05/16/2023 SFOLATE >20.0 07/03/2022 [id number] 07/03/2022 Lab Results Component Value Date [...] Dr. Ayoub. Please contact me at phone: [phone] or pager: [phone] with any questions. Michael Jeffers MD Nephrology [...] -Nephrology consulted, labs and renal US ordered -Mcgraw removed, ambulated around the unit -bilateral pleural [...] 0600 and on the weekends please page [phone]. * Hortencia Cody MD - 05/15/2023 2:07 [...] not included. Hypertension-Nephrology Inpatient Follow-up Purnima Thacker [id number] 1955 ID: 67 y.o. old female seen [...] HGB 7.8 (L) 05/13/2023 SFOLATE >20.0 07/03/2022 [id number] 07/03/2022 Lab Results Component Value Date [...] Dr. Ayoub. Please contact me at phone: [phone] or pager: [phone] with any questions. Michael Jeffers MD Nephrology [...] outlined inthis evaluation. HAVEN BA, PT Pager: [phone] Physical Therapy Inpatient Rehabilitation Department Time IN / OUT: 3090-6357 Total time: Total Minutes, Physical Therapy: 30 (eval) * Bonita Miguel PA - 05/14/2023 8:20 AM EDT Cardiac Surgery Progress Note Purnima Tahcker is a 67 y.o. female with cardiogenic [...] 0600 and on the weekends please page [phone]. * Antelmo Sharma MD - 05/14/2023 7:56 AM EDT Images from the original note were not included. [facility] [place] [address] STRUCTURAL HEART DISEASE CONSULTATION NOTE PRIMARY CARE [...] stenosis. She is now status post TAVR Cqzml-ag-Lwfut with a 23 mm Lai 3 THV 05/12/[address] Sharma. Preliminary findings: Successful right transfemoral TAVR Mufdx-rf-Bwgws with a 23 mm Lai 3 THV. [...] Mild coronary artery disease by [facility] 11/09/2022 Heart failure with reduced [...] stenosis. She is now status post TAVR Xjjjl-vw-Vfspl with a 23 mm Lai 3 THV [...] Dale ANURAG Kaplan Structural Heart Team Pager [phone] Team Office Please see addendum by Dr. [...] exposure. Nephrology consultationtoday. Antelmo Sharma MD Pager [phone] * Antelmo Cardenas RN - 05/14/2023 5:18 AM EDT Pt AOx4, complaining of mild/moderate generalized pain (states her Meloxicam is effective at home) currently refusing prn oxycodone. NAEON, hemodynamically stable on Milrinone, Maps >65, ST in tyq755's down to NSR with frequent multifocal PVC's. [...] original note were not included. [facility] [place] [address] STRUCTURAL HEART DISEASE PROGRESS NOTE PRIMARY CARE [...] stenosis. She is now status post TAVR Twtwq-uh-Frrab with a 23 mm Lai 3 THV 05/12/[address] Sharma. Preliminary findings: Successful right transfemoral TAVR Nojou-jc-Zyhnd with a 23 mm Lai 3 THV. [...] or perforation. Interval Events: - Transferred to [facility] post- TAVR for pressor/inotropic support (Levo, [...] Mild coronary artery disease by [facility] 11/09/2022 Heart failure with reduced [...] stenosis. She is now status post TAVR Orzzh-tx-Mdaid with a 23 mm Lai 3 THV [...] Brody Kaplan APRN Structural Heart Team Pager [phone] Team Office Please see addendum by Dr. [...] DAPT moving forward. Antelmo Sharma MD Pager [phone] * Bonita Miguel PA - 05/13/2023 8:30 AM EDT Cardiac Surgery Progress Note Purnima Thacker is a 67 y.o. 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 PMH of s/p tissue AVR (2017), mixed connective tissue disease HTN, HLD, NICOLAS, diverticulosis, rosacea, essential tremor, and depression. 24h Events: From chemical processing laborer for above procedure Extubated at [...] soft b/l, no evidence of hematoma. Tubes/Lines/Drains: Mcgraw, RIJ, A-line, Art, PIV Assessment/Plan: 67 y.o. [...] on the weekends please page [phone]. * Onelia Schwartz MD - 05/12/2023 1:44 [...] Mild coronary artery disease by [facility] 11/09/2022 Heart failure with reduced [...] FiO2 weaned to 40%. 1105: ABG 7.34/42/73/22 1016-5410: SBT performed and passed on these settings [...] PCP: Magdalena Acosta MD PCP phone number: [phone] Date of Admission: 05/08/2023 ( Hospital Day [...] 1447 PHART -- 7.34* 7.34* -- -- [id number] -- 30* 30* -- -- PO2ART -- 72* 81* -- -- [id number] -- 16.0* 15.7* -- -- LACTATEVEN 2.4* 2.7* 2.7* 4.8* 2.9* VBG (Venous Blood Gas) Recent Labs 05/12/23 0700 05/12/23 0318 05/12/2310505/11/23193905/11/23 1447 LACTATEVEN 2.4* 2.7* 2.7* 4.8* 2.9* Mixed Venous Sat Recent Labs 05/12/23 0508 05/12/23 0321 05/12/23 0114 05/12/23 0030 [id number] 30.7 32.7 37.3 25.1 Objective: Vitals Last [...] questions please contact the health respiratory care program director that requested your imaging first. Cardiac for [...] questions please contact the health respiratory care program director that requested your imaging first. Angiogram Abdomen [...] questions please contact the health respiratory care program director that requested your imaging first. Chest One [...] questions please contact the health respiratory care program director that requested your imaging first. Chest One [...] questions please contact the health respiratory care program director that requested your imaging first. Assessment & [...] and inotrope. She is planned for a axmar-is-ngffz TAVR this morning, which should hopefully improve [...] of Cardiovascular Medicine [facility] Java Groovy Developercyber incident responder [facility] * Noreen Deutsch RN - [...] Mild coronary artery disease by [facility] 11/09/2022 Heart failure with reduced [...] 05/11/2023 4:11 PM EDT Reported off to SHOP SERVICE TECHNICIAN and pt transferred over in the bed for higher level of care. * Antelmo Sahrma MD - 05/11/2023 9:45 AM EDT Images from the original note were not included. [facility] [place] [id number] STRUCTURAL HEART DISEASE CONSULTATION NOTE PRIMARY CARE [...] who had been referred for possible TAVR alqvd-em-dclqs evaluation. Her primary symptoms are of dyspnea [...] otherwise negative. Ms. Thacker is originally from [facility]. 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 She [...] Mild coronary artery disease by [facility] 11/09/2022 Heart failure with reduced [...] Lactate, whole blood, send to lab ([facility] Result Value Ref Range Lactate WB 3.1 (H) 0.5 - 2.2 mmol/L Heparin (unfractionated) Level Result Value Ref Range Heparin UFH Level 0.46 IU/mL Lactate, whole blood, send to lab ([facility] [place] Result Value Ref Range [...] leads Confirmed by MD Harshil, Enrique Bell ([id number]) on 05/10/2023 8:11:46 AM Cardiac Cath 11/09/2022 [...] to decompensating HFrEF, she was transferred to [facility] this afternoon for further management. TAVR CT imaging support for adequate ileofemoral access. Given her acute deterioration today, will planfor RTF TAVR on 05/12/2023. Brody Kaplan ANURAG Structural Heart Disease Pager [phone] Please see addendum by Dr. Sharma for [...] signed and dated. Antelmo Sharma MD Pager [phone] * Harini Lance MD - 05/11/2023 6:06 AM EDT Images from the original note were not included. Cardiology Progress Note Patient info: Name: Purnima Thacker : 1955 PCP: Magdalena Acosta MD PCP phone number: [phone] Date of Admission: 05/08/2023 ( Hospital Day 3 days ) Attending:Juan Luis Gonzalez MD ID: Purnima Thackre is a 67 y.o. [...] questions please contact the health respiratory care program director that requested your imaging first. : 05/08 [...] Mild coronary artery disease by [facility] 11/09/2022 Hyperlipidemia, unspecified NICOLAS (obstructive [...] PCP: Magdalena Acosta MD PCP phone number: [phone] Date of Admission: 05/08/2023 ( Hospital Day [...] Mild coronary artery disease by [facility] 11/09/2022 Hyperlipidemia, unspecified NICOLAS (obstructive sleep apnea) Resolved Hospital Problems No resolved problems to display. I have interviewed and examined the patient, reviewed the available data, and have discussed my findings, assessment and plan with the patient and the team on rounds today. I agree with Dr. Lacne's note as below which reflects our discussion. * Harini Lance MD - 05/09/2023 7:46 AM EDT Images from the original note were not included. Cardiology Progress Note Patient info: Name: Purnima Thacker : 1955 PCP: Magdalena Acosta MD PCP phone number: [phone] Date of Admission: 05/08/2023 ( Hospital Day [...] Gas) No results found for: PHART, PO2ART, VSL5MPI, FTT8OOZ Microbiology: Microbiology Results (Last 30 days) No [...] Diet: Daily Healthy Menu Choices/Cardiac diet ([facility]-Diet) Lines: Peripheral IV Line - Single Lumen [...] Mild coronary artery disease by [facility] 11/09/2022 Hyperlipidemia, unspecified NICOLAS (obstructive [...] Mild coronary artery disease by [facility] 11/09/2022 I25.10 Heart failure with reduced ejection fraction due to heart valve disease I50.20, I38 Cardiogenic shock R57.0 S/P TAVR (transcatheter aortic valve replacement) Z95.2 Past Medical History: Diagnosis Date Anemia Past Surgical History: Procedure Laterality Date PRG CATH PLMT LEFT HEART CATH & ARTS W/INJ & ANGIO IMG S&I N/A 11/09/2022 CORONARY ANGIOGRAPHY; W [facility],POSSIBLE PCI (WRVU 5.6) performed by Mario Alberto Escobedo MD at [facility] CATH LABS PRO AORTOPLAS FOR SUPRAVALV STEN N/A 09/21/2016 @AORTOPLASTY FOR SUPRAVALVULAR STENOSIS (WRVU 29.33) performed by Alirio Hudson MD at [facility] MAIN OR PRO REPLACEMENT PROSTHETIC AORTIC VALVE OPEN W CARDIOPULMONARY BYPASS HOMOGRF/STENT N/A 09/21/2016 @REPLACE AORTIC VALVE, OPEN, W\CPB, W\PROSTHETIC VALVE (WRVU 41.32) performed by Alirio Hudson MD at [facility] MAIN OR Social History and [...] Verio test strips Strip USE DAILY OneTouch DelOffice Depot Plus Lancet 33 gauge Misc USE DAILY [...] Mild coronary artery disease by [facility] 11/09/2022 I25.10 Heart failure with reduced ejection fraction due to heart valve disease I50.20, I38 Cardiogenic shock R57.0 S/P TAVR (transcatheter aortic valve replacement) Z95.2 Past Medical History: Diagnosis Date Anemia Past Surgical History: Procedure Laterality Date PRG CATH PLMT LEFT HEART CATH & ARTS W/INJ & ANGIO IMG S&I N/A 11/09/2022 CORONARY ANGIOGRAPHY; W [facility],POSSIBLE PCI (WRVU 5.6) performed by Mario Alberto Escobedo MD at [facility] CATH LABS PRO AORTOPLAS FOR SUPRAVALV STEN N/A 09/21/2016 @AORTOPLASTY FOR SUPRAVALVULAR STENOSIS (WRVU 29.33) performed by Alirio Hudson MD at [facility] MAIN OR PRO REPLACEMENT PROSTHETIC AORTIC VALVE OPEN W CARDIOPULMONARY BYPASS HOMOGRF/STENT N/A 09/21/2016 @REPLACE AORTIC VALVE, OPEN, W\CPB, W\PROSTHETIC VALVE (WRVU 41.32) performed by Alirio Hudson MD at [facility] MAIN OR Social History and [...] days, which prompted her to present to [employer] [facility]. She also endorses some intermittent retrosternal chest pain with exertion.She endorses some dizziness with exertion, but has not gotten faint or passed out. At [facility] [facility] she was noted to be afebrile, blood pressure 105/64, HR 120s, satting 95% on 2L NC. Labs from [facility] are below, of note she [...] 89/59, which prompted the transfer to us. [facility] labs: CBC - Hgb 10.5 CMP - Cr 1.1 BNP 57190 HsTrop 1358 Lactate 1.6 D-dimer 1183 Interval [...] Code Status: Attempt Cardiopulmonary Resuscitation - Inpatient [facility] Roman Reid MD Internal Medicine PGY-1 Pager [phone], M1-S1 Service Associated attestation - Juan Luis Gonzalez MD - 05/08/2023 10:00 PM EDT Cardiology Attending Addendum Active Hospital Problems Diagnosis Symptomatic severe aortic stenosis with low ejection fraction Heart failure with reduced ejection fraction due to heart valve disease Mild coronary artery disease by [facility] 11/09/2022 Hyperlipidemia, unspecified History of [...] PCP: Magdalena Acosta MD PCP phone number: [phone] Date of Admission: 05/08/2023 ( Hospital Day 0 days ) Attending:Enrique Chua MD ID: Purnima Thacker is a 67 y.o. female w/ PMH of s/p bioprosthetic AVR in 2016 with recent concern for severe restenosis, HTN, HLD, mixed connective tissue disease, who presents in transfer from [facility] with worsening BONILLA and weight [...] four days, which promptedher to present to [employer] [employer]. She also endorses some intermittent retrosternal chest pain with exertion. She endorses some dizziness with exertion, but has not gotten faint or passed out. At [facility] she was noted to be afebrile, blood pressure 105/64, HR 120s, satting 95% on 2L NC. Labs from [facility] are below, of note she [...] 89/59, which prompted the transfer to us. [facility] labs: CBC - Hgb 10.5 CMP - Cr 1.1 BNP 08265 HsTrop 1358 Lactate 1.6 D-dimer 1183 Vasoactive [...] tissue disease, who [facility] BON[facility]A and weight gain [...] Diet: Daily Healthy Menu Choices/Cardiac diet ([facility]-Diet) DVT Prophylaxis: heparin gtt GI Prophylaxis: none [...] remains HD stable, can transfer out of [facility]. -Structural Heart consult; will need inpatient [...] to the planned procedure. Hand Hygiene: The pmo manager did perform hand hygiene prior to arterial [...] Successful arterial line placement. Crispin Timmons MD Cafeteria Cashier Associated attestation - Onelia Schwartz MD - [...] (flow was non-pulsatile) and appearance of blood. Mcgraw-Marily catheter was placed and locked at 55 [...] information for follow-up Home [facility] & H[facility], [place] [address] [place] [address] Cardiac Rehab, [facility] [address] [place] [address] [facility] [address] [place] [address] Transportation: family or friend will provide *Brother [...] Type: *No Product type* / Secondary Insurance: [employer] [place] Prescription Coverage: Yes This plan was formulated with input from patient, family (please identify family/friend involved ifapplicable) and team. All are in agreement with plan. Aliza Martino MSN-Ed, RN ACM waste minimization technician Office of Care Management Pager #[phone] * Plan of Care - Favian Mckeon [...] Chaudhary RN - 05/21/2023 4:46 PM EDTSummary: [place] [facility] referral OFFICE OF CARE MANAGEMENT [...] Type: *No Product type* / Secondary Insurance: [employer] [place] Last Physical Therapy Recommendation: (Home with assist [...] planning needs. describing our affiliations within the [facility] and educate about their right to choose where referrals are sent. provide a list of Home Health Agencies / Durable Medical Equipment vendors which serve their preferred geographic area. They have requested referrals to: [facility] [address] [place] [address] Ortho Care Located @ [place], [place] Note routed to a Sales Representative Groceries who will communicate referrals to facilities and provide any required information. Transportation: family or friend will provide *Brother Raymond on Tuesday 05/22 at 1000 Barriers to discharge: Does not have home 22/02 assist available until tomorrow Tuesday 05/22 Plan going forward: Discharge home into the 22/02 home care of brother Raymond with [facility] and [facility] PT/OT services on Tuesday 05/22 [...] Attending: All Staff: Staff Role Juanita Almaguer Knitted Cloth Examiner Laure Ricks PA Physician Big Data Engineer Magdalena Rodriguez java groovy developer Nurse Consuelo Espinoza, java groovy developer Nurse Post-operative diagnosis/Indication: Right pleural effusion Name [...] Type: *No Product type* / Secondary Insurance: [facility] Last Physical Therapy Recommendation: chcf facility, swing bed rehabilitation facility with to be determined Last Occupational Therapy Recommendation: with Plan for discharge is: Jail Facility / Swing Outpatient Agency/Support Group Needs: None Agency Referrals: Based on discussions with the multi-disciplinary healthcare team, the patient would benefit from SNF / Swing level of care at discharge. I have met with the patient to: discuss discharge planning needs. provide the [facility], Office of Care Management letter from the Sugar Controller pertaining to rehab referrals. provide a letter describing our affiliations within the [facility] and educate about their right to choose where referrals are sent. provide the CMS Star Quality Rating handout. review the different levels of rehab including SNF, swing, and acute. provide a list of facilities within their preferred geographic area. request that they provide at least three choices for referral. They have requested referrals to: [facility] [address] [place] [address] [facility]) [address] [place] [address] (Accepts pts only after exhausting all other local SNF options) [facility] ([facility]) ([facility]) [address] [place] [address] PHONE: [phone] FAX: [phone] [facility] ([facility]) [facility]) [address] [place] [address] PHONE: [phone] FAX: [phone] Note routed to a Sales Representative Groceries who will communicate referrals to facilities and [...] RN - 05/17/2023 10:25 AM EDT [facility] CARDIAC [...] from the original note were not included. [facility] NEPHROLOGY/HYPERTENSION CONSULT NOTE PATIENT: Purnima Thacker [...] in her course. She ultimately underwent a stslt-il-ibecs procedure on and tolerated it well (see [...] 1423 05/12/23 1105 PHART 7.39 7.37 7.34* [id number] 33* 36 42 PO2ART 101 102 73* [id number] 19.5* 20.4 22.1 LACTATEVEN 1.5 1.8 2.8* [id number] 40 40 40 PFRATIOART2 252 255 182 VBG (Venous Blood Gas) Recent Labs 05/12/23 1557 05/12/23 1423 05/12/23 1105 LACTATEVEN 1.5 1.8 2.8* Mixed Venous Sat Recent Labs 05/12/23 1425 05/12/23 0508 05/12/23 0321 [id number] 59.9 30.7 32.7 LFT's: Recent Labs 05/14/23 0110 05/13/23 0115 05/12/23 0600 BILITOT 0.4 0.5 0.9 BILIDIR -- 0.3 -- ALBUMIN 3.6 3.0* 3.5 ALKPHOS 86 85 100 ALT 437* 903* 1,174* AST 319* 792* 1,435* No results found for: UPROTCREAT No results found for: TPROTEINPEP, ALBELECT No results found for: MICROALBUR, [id number] No results found for: HA1C Lab Results Component Value Date CALCIUM 8.5 05/14/2023 PHOS 4.7 (H) 05/08/2023 No results found for: 25OHVITD MICROBIOLOGY: ProcedureComponentValueUnitsDate/TimeUrine culture [[id number]]Collected: 05/11/231921Lab Status: Final resultSpecimen: Clean Catch UrineUpdated: [...] consulted for assessment if this patient needs MANAGER COMMUNICATION. Atthis time, we can likely hold off on MANAGER COMMUNICATION. Her volume status appears sufficient and her metabolic kanwal angements with mild acidosis is not too profound. Patient does not have significant uremic symptoms. We can hold off for today, but the patient is a high risk candidate for needing MANAGER COMMUNICATION in future daysespecially if her Cr curve trends the direction it is for the next several days. S/p Xxbif-pm-Mkhas TF TAVR: Management per cardiology. On milrinone gtt. PLAN: - Please obtain following diagnostics: renal US, urinalysis, urine prot/Cr ratio, urine albumin/Cr ratio, CK, uric acid, serum osmol, daily VBGs - No acute indications for MANAGER COMMUNICATION/dialysis. We will keep close eye on Cr trend, volume status, and metabolics to ensure patient still does not need MANAGER COMMUNICATION as she ensues intrinsic renal recovery - [...] M.H.A., M.A. PGY-V Nephrology-Hypertension Fellow Page # [phone] [facility] [address] 2nd floor, Catalyst Impregnator [address] [place] [address] * Care Management - Mario Alberto Olmos [...] Type: *No Product type* / Secondary Insurance: [facility] Plan for discharge is: Home [...] for a TAVR at 730. Returned to [facility] at 0945. Was intubated in the chemical processing laborer due to agitation. Maintained bedrest [...] Operative Note Patient Name: Purnima Thacker : [id number] MR#: [id number] Case Date: 05/12/2023 Surgeon: Surgeon(s) and Role: [...] procedure Note: Patient Name: Purnima Thacker : [id number] MR#: [id number] Case Date: 05/12/2023 Operators Surgeon: Surgeon(s) and [...] main with 4.0 x 30 mm Resolute [place] Drug Eluting Stent Perclose x1 + Angio-seal 8 Fr x1, RFA Manual pressure, LFA Manual pressure, LFV Endotracheal intubation (performed by cardiac anesthesia) Preliminary findings: Successful right transfemoral TAVR Tautl-id-Yptlw with a 23 mm Lai 3 THV. [...] MD, M.Sc. Structural Heart Disease Fellow Pager :[phone] Antelmo Sharma MD Pager [phone] * Op Note - Alirio Hudson MD - 05/12/2023 7:37 AM EDT Preop Diagnosis: Severe aortic stenosis, symptomatic. Postop Diagnosis: Same. Procedure: Transfemoral TAVR procedure with 23mm valve. Surgeon: Alirio Hudson M.D. Supervisor Pipe Joints: Danny CULP Procedure: The patient was taken to the chemical processing laborer. 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 [facility] [place] [address] STRUCTURAL HEART DISEASE CONSULTATION NOTE PRIMARY CARE [...] who had been referred for possible TAVR uaqro-rl-zudel evaluation. Her primary symptoms are of dyspnea [...] otherwise negative. Ms. Thacker is originally from [facility]. 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 She [...] Mild coronary artery disease by [facility] 11/09/2022 Heart failure with reduced [...] Lactate, whole blood, send to lab ([facility] [place] [place] Result Value Ref Range [...] leads Confirmed by MD Harshil, Enrique Bell ([id number]) on 05/10/2023 8:11:46 AM Assessment and Plan: [...] Antelmo Sharma MD Structural Heart Disease Pager [phone] * Plan of Care - Sarahi Nice RN - 05/10/2023 3:55 AM EDTSumavis: VALDO Note and Care Plan Sarahi Nice RN assumed care of pt at time of their arrival to room 362 from [facility]. Pt voices shortness of breath at [...] as Appropriate) Flowsheets (Taken 05/08/2023 1116 by Emliy Lucero RN) Anxieties, Fears or Concerns: none [...] Transfer from another hospital Location: admitted from [facility] Reason for Hospitalization: Critical aortic [...] 180 days) Any patient receiving care in [place] must abide by [place] law. The hierarchy [...] (i) The agent with financial power of securities attorney or a conservator appointed in accordance [...] DME: none Home Address confirmed as: [address] [place] [phone] Social & Family Supports: All names listed [...] Type: *No Product type* / Secondary Insurance: [facility] [place] ONLY if patient has Medicare A&B - Does this patient have secondary insurance?: Yes ; Prescription Coverage: Yes Preferred Pharmacy: updated to [facility] Status: Patient is a : No Primary Care Provider confirmed: Magdalena Acosta MD [phone] Patient/Caregiver Goals of Treatment: Potential Needs for [...] of care planning. Alie Bradshaw RN, CM Pager-[phone] * Plan of Care - Emily Lucero RN - 05/08/2023 2:54 PM EDT OUTCOME EVALUATION NOTE: OUTCOME SUMMARY: Pt arrived from [facility]. A&O, no c/o pain or [...] [facility] [address] [place] [address] 05/12/2024 10:00 AM EDT Office Visit Hematology [place] [address] Markel Borjas MD [address] [facility] [address] [place] [address] 03/01/2025 4:15 PM EDT Office Visit Dermatology at [place] [address] [place] [id number] Marek Bonilla MD [address] [place] [address] Scheduled Referrals Name Type Priority Associated Diagnoses [...] Heart Cath W/Inj L Ventriculography, Img S&I ([id number]) 05/12/2023 7:37 AM EDT Aortic valve stenosis, [...] DOPP (07/08/2023 12:15 PM EST) Pathologist [facility] EF 20 [employer] Anatomical Region Laterality Modality Cardiac Other 07/08/2023 10:3 1 AM EST Narrative 07/08/2023 12:26 PM EST [address] [place] [id number] ? Echocardiogram Report Name: PURNIMA THACKER ?Study Date: 07/08/2023 10:31 AMBP: 118/60 mmHg ? Patient Location: : 1955 ? Height: 155 cm ? Account: [id number] Age: 67 yrs ? Weight: 74 kg [...] no significant change (post-procedure). Procedure Limited - 39862. Doppler - 96705. Color Doppler - 77407. Satisfactory quality. This study is limited because [...] Note Lee Kincaid MD - 07/08/2023 [address] [place] [address] Echocardiogram Report Name: PURNIMA THACKER Study Date: 0:31 AMBP: 118/60 mmHg Patient Location: : 1955 Height: 155 cm Account: [id number] Age: 67 yrs Weight: 74 kg Gender: [...] is nosignificant change (post-procedure). Procedure Limited - 97431. Doppler - 71406. Color Doppler - 70658. Satisfactoryquality. This study is limited because of [...] EST) Glucose 93 65 - 199 mg/dL [facility] Comment:Diabetes: >=200 mg/d L plus symptoms Blood Urea Nitrogen 19(H) 8 - 18 mg/dL [facility] Creatinine 0.81 0.70 - 1.20 mg/dL [facility] Sodium 142 135 - 145 mmol/L [facility] Potassium 3.8 3.5 - 5.0 mmol/L [facility] Comment: Please note: ??Patients with WBC >100,000 may have falsely elevated Potassium levels. ??For accurate Potassium quantification in these patients send serum separator tube (gold top) for subsequent determinations. ??Contact the Clinical Chemistry Laboratory if there are any questions. Chloride 104 98 - 107 mmol/L [facility] Carbon Dioxide 26 22 - 31 mmol/L [facility] Anion Gap 12 5 - 15 mmol/L [facility] Calcium 10.2 8.5 - 10.5 mg/dL [facility] Protein, Total 7.4 6.1 - 8.0 g/dL [facility] Albumin 4.1 3.2 - 5.2 g/dL [facility] Aspartate Aminotransferase 24 0 - 30 unit/L [facility] Alanine Aminotransferase 12 0 - 30 unit/L [facility] Alkaline Phosphatase 93 35 - 105 unit/L [facility] Bilirubin, Total 0.3 0.2 - 1.3 mg/dL [facility] Est Glomerular Filtration Rate 80 >=60 mL/min/1. 73 m?? [facility] Comment: This patient's estimated [...] CHEMISTRY ORDERABLE S Performing Organization Address City/State/[facility] Co de Phone Number [facility] [place] [address] * (ABNORMAL) Basic Metabolic Panel (non-fasting) (05/22/2023 3:57 AM EDT) Pathologist [facility] Glucose 88 65 - 199 mg/dL [facility] Comment:Diabetes: >=200 mg/d L plus symptoms Blood Urea Nitrogen 21(H) 8 - 18 mg/dL [facility] Creatinine 0.69(L) 0.70 - 1.20 mg/dL [facility] Sodium 136 135 - 145 mmol/L [facility] Potassium 3.6 3.5 - 5.0 mmol/L [facility] Comment: Please note: ??Patients with WBC >100,000 may have falsely elevated Potassium levels. ??For accurate Potassium quantification in these patients send serum separator tube (gold top) for subsequent determinations. ??Contact the Clinical Chemistry Laboratory if there are any questions. Chloride 102 98 - 107 mmol/L [facility] Carbon Dioxide 23 22 - 31 mmol/L [facility] Anion Gap 11 5 - 15 mmol/L [facility] Calcium 8.6 8.5 - 10.5 mg/dL [facility] Est Glomerular Filtration Rate 95 >=60 mL/min/1. 73 m?? [facility] Comment: This patient's estimated [...] Lab Mara Maggie OSBORN CHEMISTRY ORDERABL ES [facility] [place] [address] * (ABNORMAL) Basic Metabolic Panel (non-fasting) (05/21/2023 5:06 AM EDT) Pathologist [facility] Glucose 87 65 - 199 mg/dL [facility] Comment:Diabetes: >=200 mg/d L plus symptoms Blood Urea Nitrogen 25(H) 8 - 18 mg/dL [facility] Creatinine 0.84 0.70 - 1.20 mg/dL [facility] Sodium 136 135 - 145 mmol/L [facility] Potassium 3.6 3.5 - 5.0 mmol/L [facility] Comment: Please note: ??Patients with WBC >100,000 may have falsely elevated Potassium levels. ??For accurate Potassium quantification in these patients send serum separator tube (gold top) for subsequent determinations. ??Contact the Clinical Chemistry Laboratory if there are any questions. Chloride 102 98 - 107 mmol/L [facility] Carbon Dioxide 26 22 - 31 mmol/L [facility] Anion Gap 8 5 - 15 mmol/L [facility] Calcium 8.9 8.5 - 10.5 mg/dL [facility] Est Glomerular Filtration Rate 76 >=60 mL/min/1. 73 m?? [facility] Comment: This patient's estimated [...] Spec In Lab [facility] SUPERINTENDENT GENERAL CHEMISTRY ORDERABL ES Performing Organization Address [facility] Co de Phone Number [facility] [place] [address] * Lavender Tube HOLD (05/20/2023 2:52 AM EDT) Lavender Hold Sample in lab. [facility] Blood Venous Draw / Unknown 05/20/2023 2:52 AM EDT 05/20/2023 3:04 AM EDT [facility] SUPERINTENDENT GENERAL HEMATOLOGY ORDERAB LES Performing Organization Address [facility] Co de Phone Number [facility] [place] [address] * (ABNORMAL) Basic Metabolic Panel (non-fasting) (05/20/2023 2:52 AM EDT) Glucose 152 65 - 199 mg/dL [facility] Comment:Diabetes: >=200 mg/d L plus symptoms Blood Urea Nitrogen 33(H) 8 - 18 mg/dL [facility] Creatinine 0.82 0.70 - 1.20 mg/dL [facility] Sodium 137 135 - 145 mmol/L [facility] Potassium 3.7 3.5 - 5.0 mmol/L [facility] Comment: Please note: ??Patients with WBC >100,000 may have falsely elevated Potassium levels. ??For accurate Potassium quantification in these patients send serum separator tube (gold top) for subsequent determinations. ??Contact the Clinical Chemistry Laboratory if there are any questions. Chloride 99 98 - 107 mmol/L [facility] Carbon Dioxide 22 22 - 31 mmol/L [facility] Anion Gap 16(H) 5 - 15 mmol/L [facility] Calcium 9.0 8.5 - 10.5 mg/dL [facility] Est Glomerular Filtration Rate 78 >=60 mL/min/1. 73 m?? [facility] Comment: This patient's estimated [...] Agency Comment Spec In Lab Mara Thomasfield SUPERINTENDENT GENERAL CHEMISTRY ORDERABL ES Performing Organization Address [facility] Co de Phone Number [facility] [place] [address] * (ABNORMAL) Potassium (05/20/2023 2:52 AM EDT) [facility] Signature Potassium 3.4(L) 3.5 - 5.0 mmol/L [facility] Comment: Please note: ??Patients with WBC >100,000 may have falsely elevated Potassium levels. ??For accurate Potassium quantification in these patients send serum separator tube (gold top) for subsequent determinations. ??Contact the Clinical Chemistry Laboratory if there are any questions. Blood 05/20/2023 2:52 AM EDT 05/20/2023 3:03 AM EDT Narrative Resulting Agency Comment Spec In Lab Mara [place] SUPERINTENDENT GENERAL CHEMISTRY ORDERABL ES Performing Organization Address City/[facility] Co de Phone Number [facility] [place] [address] * XR Chest PA & Lateral (Generic) (05/19/2023 11:01 AM EDT) Anatomical Region Laterality Modality Chest N/A Digital Radiogra phy Impressions 05/19/2023 2:19 PM EDT Improving bilateral effusions, moderate residual on the left, minimal on the right. ??No pneumothorax. I have personally reviewed the image(s) and the resident's interpretation and agree with the findings, Chyan Johnson MD at 05/19/2023 2:19 PM Thank you for letting us participate in the care of this patient. ??If you are a health care provider and have any questions regarding this report, please contact the number below. ??For patients who have questions please contact the health respiratory care program director that requested your imaging [...] have questions please contactthe health respiratory care program director that requested your imaging first. Alirio Hudson MD IMG DX ORDERABLES * (ABNORMAL) Basic Metabolic Panel (non-fasting) (05/19/2023 5:49 AM EDT) Glucose 93 65 - 199 mg/dL [facility] Comment:Diabetes: >=200 mg/d L plus symptoms Blood Urea Nitrogen 45(H) 8 - 18 mg/dL [facility] Creatinine 1.02 0.70 - 1.20 mg/dL [facility] Sodium 138 135 - 145 mmol/L [facility] Potassium 3.9 3.5 - 5.0 mmol/L [facility] Comment: Please note: ??Patients with WBC >100,000 may have falsely elevated Potassium levels. ??For accurate Potassium quantification in these patients send serum separator tube (gold top) for subsequent determinations. ??Contact the Clinical Chemistry Laboratory if there are any questions. Chloride 102 98 - 107 mmol/L [facility] Carbon Dioxide 26 22 - 31 mmol/L [facility] Anion Gap 10 5 - 15 mmol/L [facility] Calcium 9.7 8.5 - 10.5 mg/dL [facility] Est Glomerular Filtration Rate 60 >=60 mL/min/1. 73 m?? [facility] Comment: This patient's estimated [...] Agency Comment Spec In Lab Mara Serrano SUPERINTENDENT GENERAL [place] [address] * IR Chest Tube Placement Right (05/18/2023 [...] EDT) Glucose 95 65 - 199 mg/dL [facility] Comment:Diabetes: >=200 mg/d L plus symptoms Blood Urea Nitrogen 71(H) 8 - 18 mg/dL [facility] Comment:result rechecked-[facility] Creatinine 1.64(H) 0.70 - 1.20 mg/dL [facility] Comment:result rechecked-[facility] Sodium 137 135 - 145 mmol/L [facility] Potassium 3.7 3.5 - 5.0 mmol/L [facility] Comment: Please note: ??Patients with WBC >100,000 may have falsely elevated Potassium levels. ??For accurate Potassium quantification in these patients send serum separator tube (gold top) for subsequent determinations. ??Contact the Clinical Chemistry Laboratory if there are any questions. Chloride 100 98 - 107 mmol/L [facility] Carbon Dioxide 24 22 - 31 mmol/L [facility] Anion Gap 13 5 - 15 mmol/L [facility] Calcium 9.7 8.5 - 10.5 mg/dL [facility] Est Glomerular Filtration Rate 34(L) >=60 mL/min/1. 73 m?? [facility] Comment: This patient's estimated [...] Agency Comment Spec In Lab Mara Serrano SUPERINTENDENT GENERAL CHEMISTRY ORDERABL ES [facility] [place] [address] * XR Chest PA & Lateral (Generic) [...] questions please contact the health respiratory care program director that requested your imaging [...] have questions please contactthe health respiratory care program director that requested your imaging first. Alirio Hudson MD IMG DX ORDERABLES * (ABNORMAL) Comprehensive metabolic panel (non-fasting) (05/17/2023 4:35 AM EDT) Glucose 89 65 - 199 mg/dL [facility] Comment:Diabetes: >=200 mg/d L plus symptoms Blood Urea Nitrogen 97(H) 8 - 18 mg/dL [facility] Creatinine 2.97(H) 0.70 - 1.20 mg/dL [facility] Comment:result rechecked-[facility] Sodium 135 135 - 145 mmol/L [facility] Potassium 4.1 3.5 - 5.0 mmol/L [facility] Comment: Please note: ??Patients with WBC >100,000 may have falsely elevated Potassium levels. ??For accurate Potassium quantification in these patients send serum separator tube (gold top) for subsequent determinations. ??Contact the Clinical Chemistry Laboratory if there are any questions. Chloride 97(L) 98 - 107 mmol/L [facility] Carbon Dioxide 22 22 - 31 mmol/L [facility] Anion Gap 16(H) 5 - 15 mmol/L [facility] Calcium 9.6 8.5 - 10.5 mg/dL [facility] Protein, Total 6.5 6.1 - 8.0 g/dL [facility] Albumin 3.7 3.2 - 5.2 g/dL [facility] Aspartate Aminotransferase 58(H) 0 - 30 unit/L [facility] Alanine Aminotransferase 66(H) 0 - 30 unit/L [facility] Alkaline Phosphatase 86 35 - 105 unit/L [facility] Bilirubin, Total 0.6 0.2 - 1.3 mg/dL [facility] Est Glomerular Filtration Rate 17(L) >=60 mL/min/1. 73 m?? [facility] Comment: This patient's estimated [...] Lab Alirio Hudson MD CHEMISTRY ORDERABLE S [facility] [place] [address] * Potassium (05/16/2023 11:15 PM EDT) Potassium 3.7 3.5 - 5.0 mmol/L [facility] Comment: Please note: ??Patients [...] MD CHEMISTRY ORDERABLE S Performing Organization Address [facility]/ZIP Co de Phone Number [facility] [place] [address] * Magnesium (05/16/2023 5:22 PM EDT) Pathologist [facility] Magnesium 0.96 0.69 - 1.07 mmol/L [facility] Blood 05/16/2023 5:22 PM EDT 05/16/2023 5:27 PM EDT Narrative Resulting Agency Comment Spec In Lab Alirio Hudson MD CHEMISTRY ORDERABLE S Performing Organization Address [facility] Co de Phone Number [facility] [place] [address] * (ABNORMAL) Basic Metabolic Panel (non-fasting) (05/16/2023 5:22 PM EDT) Pathologist [facility] Glucose 106 65 - 199 mg/dL [facility] Comment:Diabetes: >=200 mg/d L plus symptoms Blood Urea Nitrogen 103(H) 8 - 18 mg/dL [facility] Creatinine 3.91(H) 0.70 - 1.20 mg/dL [facility] Comment:result rechecked-imm Sodium 132(L) 135 - 145 mmol/L [facility] Potassium 3.6 3.5 - 5.0 mmol/L [facility] Comment: Please note: ??Patients with WBC >100,000 may have falsely elevated Potassium levels. ??For accurate Potassium quantification in these patients send serum separator tube (gold top) for subsequent determinations. ??Contact the Clinical Chemistry Laboratory if there are any questions. Chloride 92(L) 98 - 107 mmol/L [facility] Carbon Dioxide 22 22 - 31 mmol/L [facility] Anion Gap 18(H) 5 - 15 mmol/L [facility] Calcium 9.7 8.5 - 10.5 mg/dL [facility] Est Glomerular Filtration Rate 12(L) >=60 mL/min/1. 73 m?? [facility] Comment: This patient's estimated [...] MD CHEMISTRY ORDERABLE S Performing Organization Address City/[facility]/ZIP Co de Phone Number [facility] [place] [address] * (ABNORMAL) Potassium (05/16/2023 11:43 AM EDT) Potassium 3.3(L) 3.5 - 5.0 mmol/L [facility] Comment: Please note: ??Patients [...] MD CHEMISTRY ORDERABLE S Performing Organization Address City/[facility]/ZIP Co de Phone Number [facility] [place] [address] * (ABNORMAL) Ferritin (05/16/2023 4:41 AM EDT) Pathologist [facility] Ferritin 1,813(H) 30 - 400 ng/mL [facility] Comment: Pediatric reference ranges not verified at [facility], interpret with caution. Reference ranges for females greater than 50 years of age approach values for men, i.e., 30-400 ng/mL. Blood 05/16/2023 4:41 AM EDT 05/16/2023 4:54 AM EDT Narrative Resulting Agency Comment Spec In Lab Kristopher Ayoub MD CHEMISTRY ORDERABLES [facility] [place] [address] * (ABNORMAL) PTH (05/16/2023 4:41 AM EDT) [facility] Parathyroid Hormone 120(H) 15 - 65 pg/mL [facility] Blood 05/16/2023 4:41 AM EDT 05/16/2023 4:54 AM EDT Narrative Resulting Agency Comment Spec In Lab Kristopher Ayoub MD CHEMISTRY ORDERABLES [facility] [place] [address] * Vitamin D, 25-Hydroxy (05/16/2023 4:41 AM EDT) [facility] Vitamin D Total 25 OH 33 21 - 100 ng/mL [facility] Vit D Interp Sufficient [facility] Blood 05/16/2023 4:41 AM EDT 05/16/2023 4:54 AM EDT Narrative Resulting Agency Comment Spec In Lab Kristopher Ayoub MD CHEMISTRY ORDERABLES [facility] [place] [address] * (ABNORMAL) Blood Gas Venous ([facility]) (05/16/2023 4:22 AM EDT) pH, Venous 7.41 7.32 - 7.42 [facility] PCO2, Venous 32(L) 41 - 51 mmHg [facility] PO2, Venous 73(H) 25 - 40 mmHg [facility] Bicarbonate, Venous 19.6 mmol/L [facility] Base Excess, Venous -5.1 mmol/L [facility] Hgb Blood Gas 9.7(L) 11.7 - 15.5 g/dL [facility] Oxyhemoglobin, Venous 92.8 % [facility] Carboxyhemoglob in, Venous 0.1 % [facility] Comment: Nonsmokers: 0.5-1.5% COHB Smokers: Variable, but usually less than 10% Toxic: 20-30% COHB Lethal: Greater than 60% COHB Methemoglobin, Venous 0.3 <=1.5 % [facility] Na Whole Blood 130(L) 135 - 145 mmol/L [facility] K Whole Blood 3.7 3.5 - 5.0 mmol/L [facility] Comment: Please note: Patients with WBC >100,000 may have falsely elevated Potassium levels. Contact the Clinical Chemistry Laboratory if there are any questions. ICa Whole Blood 1.15 1.15 - 1.33 mmol/L [facility] Comment: Note: ??Total bilirubin higher than 20 mg/dL may lead to falsely low ionized calcium. CL Whole Blood 95(L) 98 - 107 mmol/L [facility] Gluc Whole Bld 82 65 - 199 mg/dL [facility] Comment:Diabetes: >=200 mg/d L plus symptoms Lactate WB 1.1 0.5 - 2.2 mmol/L [facility] Blood Gas Source Venous [facility] Blood Venous Draw / Unknown 05/16/2023 4:22 AM EDT 05/16/2023 4:31 AM EDT Narrative Resulting Agency Comment Spec In Lab Bonita TOBAR CHEMISTRY ORDERABLES [facility] [place] [address] * (ABNORMAL) Differential, Automated (05/16/2023 4:20 AM EDT) Neutrophil % 84.1 % [facility] Neutrophil Absolute 6.22(H) 1.70 - 6.10 x10(3)/mc L [facility] Lymph % 5.8 % [facility] Lymphocytes Abs 0.4(L) 0.9 - 3.2 x10(3)/mc L [facility] Monocyte % 8.8 % [facility] Monocyte Abs 0.6 0.3 - 0.9 x10(3)/ L [facility] Eos % 0.4 % [facility] Eosinophils Abs 0.0 0.0 - 0.4 x10(3)/mc L [facility] Basophil % 0.0 % [facility] Baso Absolute 0.0 0.0 - 0.1 x10(3)/ L [facility] Immature Gran % 0.90 % [facility] Comment: Immature granulocytes(IG's)percentage and absolute count will include metamyelocytes, myelocytes, and promyelocytes. Blood smears from CBCs yielding IG's will be scanned manually for concordance. If this scan disagrees with the automated IG or if promyelocytes are noted, a manual differential will be performed. Immature Gran Absolute 0.07(H) 0.00 - 0.04 x10(3)/ L [facility] Blood 05/16/2023 4:20 AM EDT 05/16/2023 4:29 AM EDT Narrative Resulting Agency Comment Spec In Lab James Agustin MD HEMATOLOGY ORDER JODIE [facility] [place] [address] * (ABNORMAL) Hemogram (05/16/2023 4:20 AM EDT) White Blood Cell 7.4 4.0 - 9.5 x10(3)/mc L [facility] Red Blood Cell 2.40(L) 4.00 - 5.21 x10(6)/mc L [facility] Hemoglobin 7.8(L) 11.7 - 15.5 g/dL [facility] Hematocrit 22.5(L) 35.7 - 45.8 % [facility] Mean Cell Volume 93.8 82.6 - 94.4 fL [facility] Mean Cell Hemoglobin 32.5(H) 27.1 - 32.0 pg [facility] Mean Cell Hemoglobin Concentration 34.7 31.7 - 35.0 g/dL [facility] Platelet 120(L) 145 - 357 x10(3)/mc L [facility] RDW Standard Deviation 42.9 37.0 - 46.0 fL [facility] RDW coefficient of variation 12.9 11.5 - 14.1 % [facility] Mean Platelet Volume 11.3 7.6 - 12.9 fL [facility] NRBC% auto 0.7 % [facility] NRBC Absolute 0.050(H) 0.000 - 0.000 x10(3)/ L [facility] Blood 05/16/2023 4:20 AM EDT 05/16/2023 4:29 AM EDT Narrative Resulting Agency Comment Spec In Lab James Agustin MD HEMATOLOGY ORDER JODIE [facility] [place] [address] * (ABNORMAL) Basic Metabolic Panel (non-fasting) (05/16/2023 4:20 AM EDT) Glucose 89 65 - 199 mg/dL [facility] Comment:Diabetes: >=200 mg/d L plus symptoms Blood Urea Nitrogen 108(H) 8 - 18 mg/dL [facility] Creatinine 4.74(H) 0.70 - 1.20 mg/dL [facility] Comment:result rechecked-[facility] Sodium 132(L) 135 - 145 mmol/L [facility] Potassium 3.9 3.5 - 5.0 mmol/L [facility] Comment: Please note: ??Patients with WBC >100,000 may have falsely elevated Potassium levels. ??For accurate Potassium quantification in these patients send serum separator tube (gold top) for subsequent determinations. ??Contact the Clinical Chemistry Laboratory if there are any questions. Chloride 95(L) 98 - 107 mmol/L [facility] Carbon Dioxide 18(L) 22 - 31 mmol/L [facility] Anion Gap 19(H) 5 - 15 mmol/L [facility] Calcium 9.2 8.5 - 10.5 mg/dL [facility] Est Glomerular Filtration Rate 10(L) >=60 mL/min/1. 73 m?? [facility] Comment: This patient's estimated [...] MD CHEMISTRY ORDERABLE S Performing Organization Address City/[facility]/ZIP Co de Phone Number [facility] [place] [address] * (ABNORMAL) Iron and TIBC (05/16/2023 4:20 AM EDT) Iron 31 30 - 150 mcg/dL [facility] TIBC 259 250 - 450 mcg/dL [facility] Iron Saturation 12(L) 20 - 50 % [facility] Blood 05/16/2023 4:20 AM EDT 05/16/2023 4:29 AM EDT Narrative Resulting Agency Comment Spec In Lab Kristopher Ayoub MD CHEMISTRY ORDERABLES [facility] [place] [address] * (ABNORMAL) Basic Metabolic Panel (non-fasting) (05/15/2023 12:50 AM EDT) Glucose 101 65 - 199 mg/dL [facility] Comment:Diabetes: >=200 mg/d L plus symptoms Blood Urea Nitrogen 109(H) 8 - 18 mg/dL [facility] Creatinine 5.62(H) 0.70 - 1.20 mg/dL [facility] Comment:result rechecked-KS Sodium 131(L) 135 - 145 mmol/L [facility] Comment:result rechecked-KS Potassium 3.7 3.5 - 5.0 mmol/L [facility] Comment: result rechecked-KS Please note: ??Patients with WBC >100,000 may have falsely elevated Potassium levels. ??For accurate Potassium quantification in these patients send serum separator tube (gold top) for subsequent determinations. ??Contact the Clinical Chemistry Laboratory if there are any questions. Chloride 92(L) 98 - 107 mmol/L [facility] Comment:result rechecked-KS Carbon Dioxide 18(L) 22 - 31 mmol/L [facility] Comment:result rechecked-KS Anion Gap 21(H) 5 - 15 mmol/L [facility] Calcium 8.9 8.5 - 10.5 mg/dL [facility] Est Glomerular Filtration Rate 8(L) >=60 mL/min/1. 73 m?? [facility] Comment: This patient's estimated [...] Lab Alirio Hudson MD CHEMISTRY ORDERABLE S [facility] [place] [address] * (ABNORMAL) Hemogram (05/15/2023 12:50 AM EDT) White Blood Cell 9.1 4.0 - 9.5 x10(3)/mc L [facility] Red Blood Cell 2.19(L) 4.00 - 5.21 x10(6)/mc L [facility] Hemoglobin 7.2(L) 11.7 - 15.5 g/dL [facility] Hematocrit 20.6(L) 35.7 - 45.8 % [facility] Mean Cell Volume 94.1 82.6 - 94.4 fL [facility] Mean Cell Hemoglobin 32.9(H) 27.1 - 32.0 pg [facility] Mean Cell Hemoglobin Concentration 35.0 31.7 - 35.0 g/dL [facility] Platelet 109(L) 145 - 357 x10(3)/mc L [facility] RDW Standard Deviation 43.6 37.0 - 46.0 fL [facility] RDW coefficient of variation 12.9 11.5 - 14.1 % [facility] Mean Platelet Volume 10.4 7.6 - 12.9 fL [facility] NRBC% auto 2.1 % [facility] NRBC Absolute 0.190(H) 0.000 - 0.000 x10(3)/ L [facility] Blood 05/15/2023 12:5 0 AM EDT 05/15/2023 12:52 AM EDT Narrative Resulting Agency Comment Spec In Lab Alirio Hudson MD HEMATOLOGY ORDERABL ES Performing Organization Address City/State/[facility] Co de Phone Number [facility] [place] [address] * (ABNORMAL) BLOOD GAS 2 VENOUS (05/15/2023 12:49 AM EDT) pH, Venous 7.33 7.32 - 7.42 [facility] PCO2, Venous 37(L) 41 - 51 mmHg [facility] PO2, Venous 34 25 - 40 mmHg [facility] Bicarbonate, Venous 19.1 mmol/L [facility] Base Excess, Venous -6.8 mmol/L [facility] Hgb Blood Gas 10.8(L) 11.7 - 15.5 g/dL [facility] Oxyhemoglobin, Venous 58.1 % [facility] Carboxyhemoglob in, Venous 0.3 % [facility] Comment: Nonsmokers: 0.5-1.5% COHB Smokers: Variable, but usually less than 10% Toxic: 20-30% COHB Lethal: Greater than 60% COHB Methemoglobin, Venous 0.6 <=1.5 % [facility] Na Whole Blood 136 135 - 145 mmol/L [facility] K Whole Blood 3.7 3.5 - 5.0 mmol/L [facility] Comment: Please note: Patients with WBC >100,000 may have falsely elevated Potassium levels. Contact the Clinical Chemistry Laboratory if there are any questions. ICa Whole Blood 1.12(L) 1.15 - 1.33 mmol/L [facility] Comment: Note: ??Total bilirubin higher than 20 mg/dL may lead to falsely low ionized calcium. CL Whole Blood 95(L) 98 - 107 mmol/L [facility] Gluc Whole Bld 101 65 - 199 mg/dL [facility] Comment:Diabetes: >=200 mg/d L plus symptoms Lactate WB 1.3 0.5 - 2.2 mmol/L [facility] Flow, Mike 1.0 LPM [facility] Blood Gas Source Venous [facility] Blood 05/15/2023 12:4 9 AM EDT 05/15/2023 12:49 AM EDT Alirio Hudson MD POINT OF CARE TEST ORDERABLES Performing Organization Address City/State/[facility] Co de Phone Number [facility] [place] [address] * US Retroperitoneal Complete (05/14/2023 3:53 PM [...] who have questions, please contact the health respiratory care program director that requested your imaging first. ? Hayden Robledo, Staff Physician Electronically Signed Final Report ?? 05/14/2023 04:39 pm Narrative 05/14/2023 4:39 PM EDT Renal ? (Signed Final 05/14/2023 04:39 pm) PATIENT INFO: ID #: ? [id number] ?: ??[birth year] (67 yrs)(F) Name: ? PURNIMA THACKER ?Visit Date: 05/14/2023 03:44 pm PERFORMED BY: Attending: ?Meena CULP, Hayden Stafford Resident: ? Anand Camejo MD Performed By: ? Consuelo Tello RDMS Referred By: ?ALIRIO HUDSON Location: ? [place] SERVICE(S) PROVIDED: URETRO - Retroperitoneal Complete - [id number] ? [id number] INDICATIONS: EVANS COMPARISON: CT: Abdomen/Pelvis 05/11/23 RIGHT [...] 05/14/2023 04:39 pm) PATIENT INFO: ID #: [id number] : 55 (67 yrs)(F) Name: PURNIMA THACKER Visit Date: 05/14/2023 03:44 pm PERFORMED BY: Attending: Hayden Robledo MD Resident: Anand Camejo MD Performed By: Consuelo Tello RDMS Referred By: ALIRIO HUDSON Location: [place] SERVICE(S) PROVIDED: URETRO - Retroperitoneal Complete - [id number] INDICATIONS: EVANS COMPARISON: CT: Abdomen/Pelvis 05/11/23 RIGHT [...] who have questions, please contact the health respiratory care program director that requested your imaging first. Hayden Robledo, Staff Physician Electronically Signed Final Report 05/14/2023 04:39 pm Alirio Hudson MD IMG US GEN ORDERABL ES * CK (05/14/2023 3:17 PM EDT) Creatine Kinase 123 0 - 160 unit/L [facility] Blood 05/14/2023 3:17 PM EDT 05/14/2023 3:31 PM EDT Narrative Resulting Agency Comment Spec In Lab Alirio Hudson MD CHEMISTRY ORDERABLE S Performing Organization Address City/[facility]/ZIP Co de Phone Number [facility] [place] [address] * (ABNORMAL) Uric acid (05/14/2023 3:17 PM EDT) Uric Acid 14.9(H) 2.5 - 6.5 mg/dL [facility] Blood 05/14/2023 3:17 PM EDT 05/14/2023 3:31 PM EDT Narrative Resulting Agency Comment Spec In Lab Alirio Hudson MD CHEMISTRY ORDERABLE S [facility] [place] [address] * (ABNORMAL) Osmolality (05/14/2023 3:17 PM EDT) Osmolality 311(H) 275 - 295 mOsm/kg [facility] Blood 05/14/2023 3:17 PM EDT 05/14/2023 3:31 PM EDT Narrative Resulting Agency Comment Spec In Lab Alirio Hudson MD CHEMISTRY ORDERABLE S [facility] [place] [address] * (ABNORMAL) Differential, Automated (05/14/2023 1:10 AM EDT) Neutrophil % 87.2 % [facility] Neutrophil Absolute 9.74(H) 1.70 - 6.10 x10(3)/mc L [facility] Lymph % 3.9 % [facility] Lymphocytes Abs 0.4(L) 0.9 - 3.2 x10(3)/mc L [facility] Monocyte % 7.9 % [facility] Monocyte Abs 0.9 0.3 - 0.9 x10(3)/mc L [facility] Eos % 0.0 % [facility] Eosinophils Abs 0.0 0.0 - 0.4 x10(3)/mc L [facility] Basophil % 0.1 % [facility] Baso Absolute 0.0 0.0 - 0.1 x10(3)/mc L [facility] Immature Gran % 0.90 % [facility] Comment: Immature granulocytes(IG's)percentage and absolute count will include metamyelocytes, myelocytes, and promyelocytes. Blood smears from CBCs yielding IG's will be scanned manually for concordance. If this scan disagrees with the automated IG or if promyelocytes are noted, a manual differential will be performed. Immature Gran Absolute 0.10(H) 0.00 - 0.04 x10(3)/mc L [facility] Blood 05/14/2023 1:10 AM EDT 05/14/2023 1:24 AM EDT Narrative Resulting Agency Comment Spec In Lab Bonita TOBAR HEMATOLOGY ORDERABLE S [facility] [place] [address] * (ABNORMAL) Hemogram (05/14/2023 1:10 AM EDT) White Blood Cell 11.2(H) 4.0 - 9.5 x10(3)/mc L [facility] Red Blood Cell 2.19(L) 4.00 - 5.21 x10(6)/mc L [facility] Hemoglobin 7.2(L) 11.7 - 15.5 g/dL [facility] Hematocrit 20.3(L) 35.7 - 45.8 % [facility] Mean Cell Volume 92.7 82.6 - 94.4 fL [facility] Mean Cell Hemoglobin 32.9(H) 27.1 - 32.0 pg [facility] Mean Cell Hemoglobin Concentration 35.5(H) 31.7 - 35.0 g/dL [facility] Platelet 112(L) 145 - 357 x10(3)/mc L [facility] RDW Standard Deviation 41.4 37.0 - 46.0 fL [facility] RDW coefficient of variation 12.5 11.5 - 14.1 % [facility] Mean Platelet Volume 10.4 7.6 - 12.9 fL [facility] NRBC% auto 1.5 % [facility] NRBC Absolute 0.170(H) 0.000 - 0.000 x10(3)/mc L [facility] Blood 05/14/2023 1:10 AM EDT 05/14/2023 1:24 AM EDT Narrative Resulting Agency Comment Spec In Lab Bonita TOBAR HEMATOLOGY ORDERABLE S Performing Organization Address City/State/[facility] Co de Phone Number [facility] [place] [address] * (ABNORMAL) Comprehensive metabolic panel (non-fasting) (05/14/2023 1:10 AM EDT) Glucose 120 65 - 199 mg/dL [facility] Comment:Diabetes: >=200 mg/d L plus symptoms Blood Urea Nitrogen 98(H) 8 - 18 mg/dL [facility] Creatinine 4.80(H) 0.70 - 1.20 mg/dL [facility] Comment:result rechecked-ssc Sodium 132(L) 135 - 145 mmol/L [facility] Potassium 4.1 3.5 - 5.0 mmol/L [facility] Comment: Please note: ??Patients with WBC >100,000 may have falsely elevated Potassium levels. ??For accurate Potassium quantification in these patients send serum separator tube (gold top) for subsequent determinations. ??Contact the Clinical Chemistry Laboratory if there are any questions. Chloride 94(L) 98 - 107 mmol/L [facility] Carbon Dioxide 18(L) 22 - 31 mmol/L [facility] Anion Gap 20(H) 5 - 15 mmol/L [facility] Calcium 8.5 8.5 - 10.5 mg/dL [facility] Protein, Total 5.8(L) 6.1 - 8.0 g/dL [facility] Albumin 3.6 3.2 - 5.2 g/dL [facility] Aspartate Aminotransferase 319(H) 0 - 30 unit/L [facility] Alanine Aminotransferase 437(H) 0 - 30 unit/L [facility] Alkaline Phosphatase 86 35 - 105 unit/L [facility] Bilirubin, Total 0.4 0.2 - 1.3 mg/dL [facility] Est Glomerular Filtration Rate 9(L) >=60 mL/min/1. 73 m?? [facility] Comment: This patient's estimated [...] Lab Alirio Hudson MD CHEMISTRY ORDERABLE S [facility] [place] [address] * APTT (05/13/2023 10:15 AM EDT) Partial [...] MD HEMATOLOGY ORDERABL ES Performing Organization Address [facility] de Phone Number [facility] [place] [address] * (ABNORMAL) Prothrombin Time (05/13/2023 10:15 AM EDT) Prothrombin Time 14.6(H) 9.4 - 12.5 sec [facility] International Normalization Ratio 1.3 [facility] Comment: An INR <2.0 indicates [...] HEMATOLOGY ORDERABL ES Performing Organization Address [facility] de Phone Number [facility] [place] [address] * EKG 12 Lead (05/13/2023 9:22 AM EDT) Ventricular rate 92 BPM MUSE SYSTEM Atrial Rate 92 BPM MUSE SYSTEM P-R Interval 140 ms MUSE SYSTEM QRS Duration 104 ms MUSE SYSTEM Q-T Interval 384 ms MUSE SYSTEM QTC Calculated (Bezet) 474 ms MUSE SYSTEM Calculated P [place] 33 degrees MUSE SYSTEM Calculated R [place] 41 degrees MUSE SYSTEM Calculated T [place] -35 degrees MUSE SYSTEM INTERPRETATION Sinus rhythm with frequent Premature ventricular complexes Septal infarct , age undetermined ST & T wave abnormality, consider lateral ischemia Abnormal ECG When compared with ECG of 12-MAY-2023 10:10, Premature ventricular complexes are now Present I personally reviewed the tracing and edited the fellows interpretation Confirmed by fellow MD Anitha, Carissa ([id number]) on 05/13/2023 3:25:30 PM Confirmed by Maxx Best ([id number]) on 05/13/2023 8:30:56 PM MUSE SYSTEM 05/13/2023 9:22 AM EDT 05/13/2023 8:30 PM EDT Alirio Hudson MD ECG ORDERABLES MUSE SYSTEM * (ABNORMAL) Differential, Automated (05/13/2023 1:15 AM EDT) Neutrophil % 88.1 % [facility] Neutrophil Absolute 7.62(H) 1.70 - 6.10 x10(3)/mc L [facility] Lymph % 3.1 % [facility] Lymphocytes Abs 0.3(L) 0.9 - 3.2 x10(3)/mc L [facility] Monocyte % 7.9 % [facility] Monocyte Abs 0.7 0.3 - 0.9 x10(3)/mc L [facility] Eos % 0.0 % [facility] Eosinophils Abs 0.0 0.0 - 0.4 x10(3)/mc L [facility] Basophil % 0.1 % [facility] Baso Absolute 0.0 0.0 - 0.1 x10(3)/mc L [facility] Immature Gran % 0.80 % [facility] Comment: Immature granulocytes(IG's)percentage and absolute count will include metamyelocytes, myelocytes, and promyelocytes. Blood smears from CBCs yielding IG's will be scanned manually for concordance. If this scan disagrees with the automated IG or if promyelocytes are noted, a manual differential will be performed. Immature Gran Absolute 0.07(H) 0.00 - 0.04 x10(3)/mc L [facility] Blood 05/13/2023 1:15 AM EDT 05/13/2023 1:29 AM EDT Narrative Resulting Agency Comment Spec In Lab Lorri TOBAR HEMATOLOGY ORDERABLE S [facility] [place] [address] * (ABNORMAL) Hemogram (05/13/2023 1:15 AM EDT) White Blood Cell 8.6 4.0 - 9.5 x10(3)/mc L [facility] Red Blood Cell 2.37(L) 4.00 - 5.21 x10(6)/mc L [facility] Hemoglobin 7.8(L) 11.7 - 15.5 g/dL [facility] Hematocrit 22.2(L) 35.7 - 45.8 % [facility] Mean Cell Volume 93.7 82.6 - 94.4 fL [facility] Mean Cell Hemoglobin 32.9(H) 27.1 - 32.0 pg [facility] Mean Cell Hemoglobin Concentration 35.1(H) 31.7 - 35.0 g/dL [facility] Platelet 130(L) 145 - 357 x10(3)/mc L [facility] RDW Standard Deviation 41.7 37.0 - 46.0 fL [facility] RDW coefficient of variation 12.5 11.5 - 14.1 % [facility] Mean Platelet Volume 10.2 7.6 - 12.9 fL [facility] NRBC% auto 0.5 % [facility] NRBC Absolute 0.040(H) 0.000 - 0.000 x10(3)/mc L [facility] Blood 05/13/2023 1:15 AM EDT 05/13/2023 1:29 AM EDT Narrative Resulting Agency Comment Spec In Lab Lorri TOBAR HEMATOLOGY ORDERABLE S [facility] [place] [address] * (ABNORMAL) Hepatic Function Panel (05/13/2023 1:15 AM EDT) Protein, Total 5.5(L) 6.1 - 8.0 g/dL [facility] Albumin 3.0(L) 3.2 - 5.2 g/dL [facility] Aspartate Aminotransferase 792(H) 0 - 30 unit/L [facility] Alanine Aminotransferase 903(H) 0 - 30 unit/L [facility] Alkaline Phosphatase 85 35 - 105 unit/L [facility] Bilirubin, Total 0.5 0.2 - 1.3 mg/dL [facility] Bilirubin, Direct 0.3 0.0 - 0.3 mg/dL [facility] Blood 05/13/2023 1:15 AM EDT 05/13/2023 1:29 AM EDT Narrative Resulting Agency Comment Spec In Lab Alirio Hudson MD CHEMISTRY ORDERABLE S Performing Organization Address City/State/[facility] Co de Phone Number [facility] [place] [address] * (ABNORMAL) Basic Metabolic Panel (non-fasting) (05/13/2023 1:15 AM EDT) Glucose 107 65 - 199 mg/dL [facility] Comment:Diabetes: >=200 mg/d L plus symptoms Blood Urea Nitrogen 82(H) 8 - 18 mg/dL [facility] Creatinine 3.15(H) 0.70 - 1.20 mg/dL [facility] Comment:result rechecked-OG Sodium 132(L) 135 - 145 mmol/L [facility] Potassium 3.8 3.5 - 5.0 mmol/L [facility] Comment: Please note: ??Patients with WBC >100,000 may have falsely elevated Potassium levels. ??For accurate Potassium quantification in these patients send serum separator tube (gold top) for subsequent determinations. ??Contact the Clinical Chemistry Laboratory if there are any questions. Chloride 95(L) 98 - 107 mmol/L [facility] Carbon Dioxide 20(L) 22 - 31 mmol/L [facility] Anion Gap 17(H) 5 - 15 mmol/L [facility] Calcium 8.3(L) 8.5 - 10.5 mg/dL [facility] Est Glomerular Filtration Rate 16(L) >=60 mL/min/1. 73 m?? [facility] Comment: This patient's estimated [...] CHEMISTRY ORDERABLE S Performing Organization Address City/State/[facility] Co de Phone Number [facility] [place] [address] * (ABNORMAL) BLOOD GAS 2 ARTERIAL (05/12/2023 3:57 PM EDT) pH, Arterial 7.39 7.35 - 7.45 [facility] PCO2, Arterial 33(L) 35 - 45 mmHg [facility] PO2, Arterial 101 85 - 104 mmHg [facility] Bicarbonate, Arterial 19.5(L) 20.0 - 26.0 mmol/L [facility] Base Excess, Arterial -5.5(L) -3.0 - 3.0 mmol/L [facility] Hgb Blood Gas 9.8(L) 11.7 - 15.5 g/dL [facility] Oxyhemoglobin, Arterial 95.2 94.0 - 97.0 % [facility] Carboxyhemoglob in, Arterial 0.2 % [facility] Comment: Nonsmokers: 0.5-1.5% COHB Smokers: Variable, but usually less than 10% Toxic: 20-30% COHB Lethal: Greater than 60% COHB Methemoglobin, Arterial 0.8 <=1.5 % [facility] Na Whole Blood 129(L) 135 - 145 mmol/L [facility] K Whole Blood 3.8 3.5 - 5.0 mmol/L [facility] Comment: Please note: Patients with WBC >100,000 may have falsely elevated Potassium levels. Contact the Clinical Chemistry Laboratory if there are any questions. ICa Whole Blood 1.05(L) 1.15 - 1.33 mmol/L [facility] Comment: Note: ??Total bilirubin higher than 20 mg/dL may lead to falsely low ionized calcium. CL Whole Blood 96(L) 98 - 107 mmol/L [facility] Gluc Whole Bld 178 65 - 199 mg/dL [facility] Comment:Diabetes: >=200 mg/d L plus symptoms. Lactate WB 1.5 0.5 - 2.2 mmol/L [facility] FIO2 Art 40 % [facility] PF Ratio Art 252 [facility] HO SPITAL LABORATORY Blood 05/12/2023 3:57 PM EDT 05/12/2023 3:57 PM EDT Alirio Hudson MD POINT OF CARE TEST ORDERABLES Performing Organization Address [facility] Co de Phone Number [facility] [place] [address] * (ABNORMAL) Coox2 (05/12/2023 2:25 PM EDT) pO2, Coox 37 mmHg [facility] Hgb Blood Gas 9.5(L) 11.7 - 15.5 g/dL [facility] Oxyhemoglobin, Coox 59.9 % [facility] Carboxyhemoglo bin, Coox 0.3 % [facility] Comment: Nonsmokers: 0.5-1.5% COHB Smokers: Variable, but usually less than 10% Toxic: 20-30% COHB Lethal: Greater than 60% COHB Methemoglobin, Coox 0.7 <=1.5 % [facility] Source Coox Mixed Venous [facility] Blood 05/12/2023 2:25 PM EDT 05/12/2023 2:25 PM EDT Alirio Hudson MD POINT OF CARE TEST ORDERABLES Performing Organization Address [facility] Co de Phone Number [facility] [place] [address] * (ABNORMAL) BLOOD GAS 2 ARTERIAL (05/12/2023 2:23 PM EDT) pH, Arterial 7.37 7.35 - 7.45 [facility] PCO2, Arterial 36 35 - 45 mmHg [facility] PO2, Arterial 102 85 - 104 mmHg [facility] LABORATORY Bicarbonate, Arterial 20.4 20.0 - 26.0 mmol/L [facility] Base Excess, Arterial -4.8(L) -3.0 - 3.0 mmol/L [facility] Hgb Blood Gas 12.7 11.7 - 15.5 g/dL [facility] Oxyhemoglobin, Arterial 95.4 94.0 - 97.0 % [facility] Carboxyhemoglob in, Arterial 0.3 % [facility] Comment: Nonsmokers: 0.5-1.5% COHB Smokers: Variable, but usually less than 10% Toxic: 20-30% COHB Lethal: Greater than 60% COHB Methemoglobin, Arterial 0.7 <=1.5 % [facility] Na Whole Blood 129(L) 135 - 145 mmol/L [facility] K Whole Blood 3.7 3.5 - 5.0 mmol/L [facility] Comment: Please note: Patients with WBC >100,000 may have falsely elevated Potassium levels. Contact the Clinical Chemistry Laboratory if there are any questions. ICa Whole Blood 1.05(L) 1.15 - 1.33 mmol/L [facility] Comment: Note: ??Total bilirubin higher than 20 mg/dL may lead to falsely low ionized calcium. CL Whole Blood 95(L) 98 - 107 mmol/L [facility] Gluc Whole Bld 168 65 - 199 mg/dL [facility] Comment:Diabetes: >=200 mg/d L plus symptoms. Lactate WB 1.8 0.5 - 2.2 mmol/L [facility] FIO2 Art 40 % [facility] PF Ratio Art 255 [facility]ATORY Blood 05/12/2023 2:23 PM EDT 05/12/2023 2:23 PM EDT Alirio Hudson MD POINT OF CARE TEST ORDERABLES [facility] [place] [address] * (ABNORMAL) Troponin (05/12/2023 2:05 PM EDT) Troponin-T, High Sensitivity 1,022(H) <=14 ng/L [facility] Comment: This patient's troponin T [...] troponin value can be found in the [facility] Test Catalog Troponin - [facility] Test Catalog Reference: Fourth [place] Definition of Myocardial Infarction. Journal of the [place] [employer] 2018;72:7623-6060 Blood 05/12/2023 2:05 PM EDT 05/12/2023 2:14 PM EDT Narrative Resulting Agency Comment Spec In Lab Alirio Hudson MD CHEMISTRY ORDERABLE S [facility] [place] [address] * (ABNORMAL) Hemoglobin (05/12/2023 2:05 PM EDT) Hemoglobin 8.5(L) 11.7 - 15.5 g/dL [facility] Blood 05/12/2023 2:05 PM EDT 05/12/2023 2:14 PM EDT Narrative Resulting Agency Comment Spec In Lab Alirio Hudson MD HEMATOLOGY ORDERABL ES Performing Organization Address [facility] Co de Phone Number [facility] [place] [address] * Potassium (05/12/2023 2:05 PM EDT) Potassium 3.9 3.5 - 5.0 mmol/L [facility] Comment: Please note: ??Patients [...] MD CHEMISTRY ORDERABLE S Performing Organization Address [facility] Co de Phone Number [facility] [place] [address] * (ABNORMAL) BLOOD GAS 2 ARTERIAL (05/12/2023 11:05 AM EDT) pH, Arterial 7.34(L) 7.35 - 7.45 [facility] PCO2, Arterial 42 35 - 45 mmHg [facility] PO2, Arterial 73(L) 85 - 104 mmHg [facility] Bicarbonate, Arterial 22.1 20.0 - 26.0 mmol/L [facility] Base Excess, Arterial -3.6(L) -3.0 - 3.0 mmol/L [facility] Hgb Blood Gas 9.3(L) 11.7 - 15.5 g/dL [facility] Oxyhemoglobin, Arterial 89.3(L) 94.0 - 97.0 % [facility] Carboxyhemoglob in, Arterial 0.2 % [facility] Comment: Nonsmokers: 0.5-1.5% COHB Smokers: Variable, but usually less than 10% Toxic: 20-30% COHB Lethal: Greater than 60% COHB Methemoglobin, Arterial 0.9 <=1.5 % [facility] Na Whole Blood 131(L) 135 - 145 mmol/L [facility] K Whole Blood 3.8 3.5 - 5.0 mmol/L [facility] Comment: Please note: Patients with WBC >100,000 may have falsely elevated Potassium levels. Contact the Clinical Chemistry Laboratory if there are any questions. ICa Whole Blood 1.04(L) 1.15 - 1.33 mmol/L [facility] Comment: Note: ??Total bilirubin higher than 20 mg/dL may lead to falsely low ionized calcium. CL Whole Blood 96(L) 98 - 107 mmol/L [facility] Gluc Whole Bld 152 65 - 199 mg/dL [facility] Comment:Diabetes: >=200 mg/d L plus symptoms. Lactate WB 2.8(H) 0.5 - 2.2 mmol/L [facility] FIO2 Art 40 % [facility] PF Ratio Art 182 [facility] Blood 05/12/2023 11:0 5 AM EDT 05/12/2023 11:05 AM EDT Alirio Hudson MD POINT OF CARE TEST ORDERABLES [facility] [place] [address] * (ABNORMAL) BLOOD GAS 2 ARTERIAL (05/12/2023 10:14 AM EDT) pH, Arterial 7.18(Criti gabrielle) 7.35 - 7.45 [facility] Comment:Noted by instrumentation manager. PCO2, Arterial 45 35 - 45 mmHg [facility] PO2, Arterial 186(H) 85 - 104 mmHg [facility] Bicarbonate, Arterial 16.2(L) 20.0 - 26.0 mmol/L [facility] Base Excess, Arterial -12.2(L) -3.0 - 3.0 mmol/L [facility] Hgb Blood Gas 10.0(L) 11.7 - 15.5 g/dL [facility] Oxyhemoglobin, Arterial 97.0 94.0 - 97.0 % [facility] Carboxyhemoglob in, Arterial 0.2 % [facility] Comment: Nonsmokers: 0.5-1.5% COHB Smokers: Variable, but usually less than 10% Toxic: 20-30% COHB Lethal: Greater than 60% COHB Methemoglobin, Arterial 0.9 <=1.5 % [facility] Na Whole Blood 129(L) 135 - 145 mmol/L [facility] K Whole Blood 3.6 3.5 - 5.0 mmol/L [facility] Comment: Please note: Patients with WBC >100,000 may have falsely elevated Potassium levels. Contact the Clinical Chemistry Laboratory if there are any questions. ICa Whole Blood 1.10(L) 1.15 - 1.33 mmol/L [facility] Comment: Note: ??Total bilirubin higher than 20 mg/dL may lead to falsely low ionized calcium. CL Whole Blood 97(L) 98 - 107 mmol/L [facility] Gluc Whole Bld 161 65 - 199 mg/dL [facility] Comment:Diabetes: >=200 mg/d L plus symptoms. Lactate WB 3.3(H) 0.5 - 2.2 mmol/L [facility] FIO2 Art 100 % [facility] PF Ratio Art 186 [facility] Blood 05/12/2023 10:1 4 AM EDT 05/12/2023 10:14 AM EDT Alirio Hudson MD POINT OF CARE TEST ORDERABLES Performing Organization Address City/State/[facility] Co de Phone Number [facility] [place] [address] * EKG 12 Lead (05/12/2023 10:10 AM EDT) Ventricular rate 116 BPM MUSE SYSTEM Atrial Rate 116 BPM MUSE SYSTEM P-R Interval 158 ms MUSE SYSTEM QRS Duration 114 ms MUSE SYSTEM Q-T Interval 348 ms MUSE SYSTEM QTC Calculated (Bezet) 483 ms MUSE SYSTEM Calculated P [place] 37 degrees MUSE SYSTEM Calculated R [place] 31 degrees MUSE SYSTEM Calculated T [place] -138 degrees MUSE SYSTEM INTERPRETATION Sinus tachycardia with intermittent aberrant ventricular conduction Possible Left atrial enlargement Incomplete left bundle block Left ventricular hypertrophy with repolarization abnormality ( Sokolow-Orozco , Flournoy product ) ST & T wave abnormality in Inferolateral leads Abnormal ECG When compared with ECG of 10-MAY-2023 13:16, ST & T wave abnormality is more pronounced in inferolateral leads I personally reviewed the tracing and edited the fellows interpretation Confirmed by fellow MD Anuja, Jim ([id number]) on 05/12/2023 1:04:20 PM Confirmed by MD Mono, Eleni ([id number]) on 05/12/2023 9:28:34 PM MUSE SYSTEM 05/12/2023 [...] questions please contact the health respiratory care program director that requested your imaging [...] course of the esophagus and outside the rruza-li-olnj. Interval retraction of right IJ approach pulmonary [...] expected course ofthe esophagus and outside the arhjy-dk-wdxf. Interval retraction of right IJ approach pulmonary [...] have questions please contactthe health respiratory care program director that requested your imaging first. Alirio Hudson [...] 1955 ? Height: 154 cm ? Account: [id number] Age: 67 yrs ? Weight: 75 kg [...] mL/m2. POST TAVR: Normal function of the jlbju-ax-txpdq prosthesis. See below for hemodynamic parameters. Slight improvement in left and right ventricular systolic function. LVEF now 20-25%. No pericardial effusion. See report for additional findings. Procedure Limited - 31115. Doppler - 47352. Color Doppler - 62477. Left Ventricle Left ventricle is of normal [...] valve mean: 18.6 mmHg MV E max ewro: 97.3 cm/sec MV dec time: 0.23 sec [...] Chua MD - 05/12/2023 Echocardiogram Report Name: PURINMA THACKER Study Date: 307:33 AMBP: 96/63 mmHg Patient Location: [address] : 1955 Height: 154 cm Account: [id number] Age: 67 yrs Weight: 75 kg Gender: [...] 28mL/m2. POST TAVR: Normal function of the rvcyv-jl-ilpyr prosthesis. See belowfor hemodynamic parameters. Slight improvement in left and right ventricularsystolic function. LVEF now 20-25%. No pericardial effusion. See report for additional findings. Procedure Limited - 66111. Doppler - 69203. Color Doppler - 51055. Left Ventricle Left ventricle is of normal [...] ? Procedure Date: 05/12/2023 ? A #: [id number] ? Primary Physician: Antelmo Sharma ? Case #: [id number] ? File Name: [id number] ? Catheterization Order Number: [id number] ? [facility] ? Final Report [place], [place] ? Patient Name: ? Purnima Thacker ? ID#: ?[id number] ? : ?1955 ? Procedure Date: ? May 12, 2023 ? Case #: ? [id number] ? Room: ? 6 ? Case Physicians: ?Antelmo Sharma M.D. ?Start: ?08:03 ?Alirio Hudson M.D. ?Admission: ??05/08/2023 ?Lynda Mcgowan M.D. ? Discharge: ??05/22/2023 ?Fellow: ? Kristied Adair Tejeda ? Referring Physician: ??Mario Alberto Chin M.D. ? Procedures: ?* Coronary Angiography ?* Left Heart Catheterization ?* Coronary Stent Insertion ?* Transcatheter Aortic Valve Replacement ?* Vascular Closure Device Deployment ?* Temporary Pacemaker Insertion In Yard Caller ?* Endotracheal Intubation By Non-Cath Physician ?* [...] was designated as ASA Class IV. The [facility] clinical ?frailty scale is 4: [...] guide. ??A premounted 4.00 x 30 mm Alden Tolland (MINNA) was ? deployed with a maximum [...] calculated STS risk score was 30.1%. A cbswb-lw-erefv ?procedure was performed on the pre-existing bioprosthetic stented ?prosthesis. The priority of the ltngc-tg-jzamc procedure was Elective. ?The procedure was performed under Moderate sedation performed by Lynda Ramires ?Adair Mcgowan (see anesthesia report for additional details). Alirio Powell ?Adair Hudson participated in the case (see Cardiac Surgery report for ?additional details). ?The TAVR sheath was a 14 Fr Cornoa eSheath Introducer and the access ?site was femoral. Rapid ventricular pacing was performed. ?An Corona Lai 3 Ultra RESILIA 23 mm THV (s/h=[id number]) transcatheter ?valve was inserted using standard technique. [...] to nor was it given in the ?chemical processing laborer. ?Recommended anti-platelet/anti-thrombotic regimen: ?Continue aspirin 81 mg daily for indefinitely. ?These recommendations are made at the time of the intervention. Patient ?and provider preferences or a changing clinical situation may require ?modification of this regimen. Consult [facility] Interventional Cardiology for ?questions. ? Conclusions: ?* [...] regimen. ? Comments: ?Successful right transfemoral TAVR Twpmn-bp-Lcypb with a 23 mm Lai 3 ?THV. [...] insertion-coronary, access site angiography, ?temporary pacemaker in chemical processing laborer, intubation-non cath physician, vascular ?closure device, transthoracic echo ??and TAVR. Dr. Alirio Hudson M.D. ?performed the left heart catheterization, access site angiography, ?temporary pacemaker in chemical processing laborer, vascular closure device, transthoracic ?echo , TAVR and CPR during cath. Dr. Lynda Mcgowan M.D. performed the ABG, ?anesthesia and intubation-non cath physician. ? Antelmo Sharma M.D. ? Electronically Signed by: Antelmo Sharma M.D. ? Report Finalized: 05/12/2023 ??14:31 ? Report Last Ammended: 07/01/2023 ??11:30 ? Procedure Note Antelmo Sharma MD - 07/01/2023 [facility] Cardiac Catheterization/Intervention Report Patient Name: Purnima Thacker Procedure Date: 05/12/2023 A #: [id number] Primary Physician: Antelmo Sharma Case #: [id number] File Name: [id number] Catheterization Order Number: [id number] [facility] FinalReport [place], [place] Patient Name: Purnima Thacker ID#:[id number] :1955 Procedure Date: May 12, 2023 Case #: [id number] Room: 6 Case Physicians: Antelmo Sharma M.D. Start: 08:03 Alirio Hudson M.D. Admission:05/08/2023 Lynda Mcgowan M.D. Discharge:05/22/2023 Fellow: Rebekah Tejeda M.D. Referring Physician: Mario Alberto Chin M.D. Procedures: * Coronary Angiography * Left Heart Catheterization * Coronary Stent Insertion * Transcatheter Aortic Valve Replacement * Vascular Closure Device Deployment * Temporary Pacemaker Insertion In Yard Caller * Endotracheal Intubation By Non-Cath Physician * [...] A premounted 4.00 x 30 mm Nils Tolland (MINNA) was deployed with a maximum inflation [...] calculated STS risk score was 30.1%. A nkdqw-ke-ektpe procedure was performed on the pre-existing bioprosthetic stented prosthesis. The priority of the baami-wb-swbqy procedure wasElective. The procedure was performed under Moderate sedation performed byLynda Mcgowan M.D. (see anesthesia report for additional details). Alirio Hudson M.D. participated in the case (see Cardiac Surgery reportfor additional details). The TAVR sheath was a 14 Fr Corona eSheath Introducer and theaccess site was femoral. Rapid ventricular pacing was performed. An Corona Lai 3 Ultra RESILIA 23 mm THV (s/y=[id number])transcatheter valve was inserted using standard technique. The [...] prior to nor was it given inthe chemical processing laborer. Recommended anti-platelet/anti-thrombotic regimen: Continue aspirin 81 mg daily for indefinitely. These recommendations are made at the time of the intervention.Patient and provider preferences or a changing clinical situation mayrequire modification of this regimen. Consult [facility] Interventional Cardiologyfor questions. Conclusions: * Nonobstructive disease [...] this regimen. Comments: Successful right transfemoral TAVR Dkcan-ct-Wensi with a 23 mmSapien 3 THV. We [...] insertion-coronary, access site angiography, temporary pacemaker in chemical processing laborer, intubation-non cath physician,vascular closure device, transthoracic echo and TAVR. Dr. Alirio Hudson M.D. performed the left heart catheterization, access site angiography, temporary pacemaker in chemical processing laborer, vascular closure device,transthoracic echo , [...] pH, POC 7.20(Crit ical) 7.35 - 7.45 [facility] Comment:Critical value OK, C C Lab. pCO2, POC 42 35 - 45 mmHg [facility] pO2, POC 260(H) 85 - 104 mmHg [facility] Base Excess, POC -11.0(L) -3.0 - 3.0 mmol/L [facility] Bicarbonate, POC 16.7(L) 20.0 - 26.0 mmol/L [facility] Sodium, POC 129(L) 135 - 145 mmol/L [facility] POC Potassium 3.8 3.5 - 5.0 mmol/L [facility] Ionized Calcium, POC 1.12(L) 1.15 - 1.33 mmol/L [facility] POC Hematocrit 23.0(L) 34.0 - 45.0 % [facility] POC Calc Hgb 7.8(L) 11.2 - 15.7 g/dL [facility] Comment:The calculation of h emoglobin from hematocrit assumes a normal MCHC. POC Bgas Loc CC Lab [facility] Blood 05/12/2023 8:50 AM EDT 05/13/2023 12:00 PM EDT Alirio Hudson MD CHEMISTRY ORDERABLE S [facility] [place] [address] * (ABNORMAL) Point of Care Blood Gas Historical (05/12/2023 8:10 AM EDT) pH, POC 7.27(Crit ical) 7.35 - 7.45 [facility] Comment:Critical value OK, C C Lab. pCO2, POC 37 35 - 45 mmHg [facility] pO2, POC 29(Critic al) 85 - 104 mmHg [facility] Comment:Critical value OK, C C Lab. Base Excess, POC -10.0(L) -3.0 - 3.0 mmol/L [facility] Bicarbonate, POC 16.7(L) 20.0 - 26.0 mmol/L [facility] Sodium, POC 123(L) 135 - 145 mmol/L [facility] POC Potassium 4.0 3.5 - 5.0 mmol/L [facility] Ionized Calcium, POC 1.12(L) 1.15 - 1.33 mmol/L [facility] POC Hematocrit 27.0(L) 34.0 - 45.0 % [facility] POC Calc Hgb 9.2(L) 11.2 - 15.7 g/dL [facility] Comment:The calculation of h emoglobin from hematocrit assumes a normal MCHC. POC Bgas Loc CC Lab [facility] Blood 05/12/2023 8:10 AM EDT 05/13/2023 12:00 PM EDT Alirio Hudson MD CHEMISTRY ORDERABLE S [facility] [place] [address] * (ABNORMAL) Lactate, whole blood, send to lab ([facility] (05/12/2023 7:00 AM EDT) Lactate WB 2.4(H) 0.5 - 2.2 mmol/L [facility] Blood 05/12/2023 7:00 AM EDT 05/12/2023 7:09 AM EDT Narrative Resulting Agency Comment Spec In Lab Radha Hollins MD CHEMISTRY ORDERABL ES Performing Organization Address City/[facility]/ZIP Co de Phone Number [facility] [place] [address] * (ABNORMAL) Comprehensive metabolic panel (non-fasting) (05/12/2023 6:00 AM EDT) Glucose 167 65 - 199 mg/dL [facility] Comment:Diabetes: >=200 mg/d L plus symptoms Blood Urea Nitrogen 67(H) 8 - 18 mg/dL [facility] Creatinine 2.01(H) 0.70 - 1.20 mg/dL [facility] Sodium 131(L) 135 - 145 mmol/L [facility] Potassium 4.3 3.5 - 5.0 mmol/L [facility] Comment: Please note: ??Patients with WBC >100,000 may have falsely elevated Potassium levels. ??For accurate Potassium quantification in these patients send serum separator tube (gold top) for subsequent determinations. ??Contact the Clinical Chemistry Laboratory if there are any questions. Chloride 97(L) 98 - 107 mmol/L [facility] Carbon Dioxide 14(L) 22 - 31 mmol/L [facility] Anion Gap 20(H) 5 - 15 mmol/L [facility] Calcium 8.6 8.5 - 10.5 mg/dL [facility] Protein, Total 6.3 6.1 - 8.0 g/dL [facility] Albumin 3.5 3.2 - 5.2 g/dL [facility] Aspartate Aminotransferase 1,435(H) 0 - 30 unit/L [facility] Alanine Aminotransferase 1,174(H) 0 - 30 unit/L [facility] Alkaline Phosphatase 100 35 - 105 unit/L [facility] Bilirubin, Total 0.9 0.2 - 1.3 mg/dL [facility] Est Glomerular Filtration Rate 27(L) >=60 mL/min/1. 73 m?? [facility] Comment: This patient's estimated [...] MD CHEMISTRY ORDERABL ES Performing Organization Address City/State/[facility] Co de Phone Number [facility] [place] [address] * (ABNORMAL) Coox2 (05/12/2023 5:08 AM EDT) pO2, Coox 24 mmHg [facility] Hgb Blood Gas 10.4(L) 11.7 - 15.5 g/dL [facility] Oxyhemoglobin, Coox 30.7 % [facility] Carboxyhemoglo bin, Coox 0.3 % [facility] Comment: Nonsmokers: 0.5-1.5% COHB Smokers: Variable, but usually less than 10% Toxic: 20-30% COHB Lethal: Greater than 60% COHB Methemoglobin, Coox 0.8 <=1.5 % [facility] Source Coox Mixed Venous [facility] Blood 05/12/2023 5:08 AM EDT 05/12/2023 5:08 AM EDT Radha Hollins MD POINT OF CARE TEST ORDERABLES Performing Organization Address [facility] Co de Phone Number [facility] [place] [address] * (ABNORMAL) Coox2 (05/12/2023 3:21 AM EDT) pO2, Coox 25 mmHg [facility] Hgb Blood Gas 10.8(L) 11.7 - 15.5 g/dL [facility] Oxyhemoglobin, Coox 32.7 % [facility] Carboxyhemoglo bin, Coox 0.3 % [facility] Comment: Nonsmokers: 0.5-1.5% COHB Smokers: Variable, but usually less than 10% Toxic: 20-30% COHB Lethal: Greater than 60% COHB Methemoglobin, Coox 0.7 <=1.5 % [facility] Source Coox Mixed Venous [facility] Blood 05/12/2023 3:21 AM EDT 05/12/2023 3:21 AM EDT Radha Hollins MD POINT OF CARE TEST ORDERABLES Performing Organization Address [facility] de Phone Number [facility] [place] [address] * (ABNORMAL) BLOOD GAS 2 ARTERIAL (05/12/2023 3:18 AM EDT) pH, Arterial 7.34(L) 7.35 - 7.45 [facility] PCO2, Arterial 30(L) 35 - 45 mmHg [facility] PO2, Arterial 72(L) 85 - 104 mmHg [facility] Bicarbonate, Arterial 16.0(L) 20.0 - 26.0 mmol/L [facility] Base Excess, Arterial -9.8(L) -3.0 - 3.0 mmol/L [facility] Hgb Blood Gas 11.0(L) 11.7 - 15.5 g/dL [facility] Oxyhemoglobin, Arterial 89.8(L) 94.0 - 97.0 % [facility] Carboxyhemoglob in, Arterial 0.3 % [facility] Comment: Nonsmokers: 0.5-1.5% COHB Smokers: Variable, but usually less than 10% Toxic: 20-30% COHB Lethal: Greater than 60% COHB Methemoglobin, Arterial 0.7 <=1.5 % [facility] Na Whole Blood 131(L) 135 - 145 mmol/L [facility] K Whole Blood 4.2 3.5 - 5.0 mmol/L [facility] Comment: Please note: Patients with WBC >100,000 may have falsely elevated Potassium levels. Contact the Clinical Chemistry Laboratory if there are any questions. ICa Whole Blood 1.12(L) 1.15 - 1.33 mmol/L [facility] Comment: Note: ??Total bilirubin higher than 20 mg/dL may lead to falsely low ionized calcium. CL Whole Blood 100 98 - 107 mmol/L [facility] Gluc Whole Bld 160 65 - 199 mg/dL [facility] Comment:Diabetes: >=200 mg/d L plus symptoms. Lactate WB 2.7(H) 0.5 - 2.2 mmol/L [facility] Flow Art 5.0 LPM [facility] Blood 05/12/2023 3:18 AM EDT 05/12/2023 3:18 AM EDT Radha Hollins MD POINT OF CARE TEST ORDERABLES Performing Organization Address City/State/[facility] Co de Phone Number [facility] [place] [address] * (ABNORMAL) Coox2 (05/12/2023 1:14 AM EDT) pO2, Coox 28 mmHg [facility] Hgb Blood Gas 10.9(L) 11.7 - 15.5 g/dL [facility] Oxyhemoglobin, Coox 37.3 % [facility] Carboxyhemoglo bin, Coox 0.3 % [facility] Comment: Nonsmokers: 0.5-1.5% COHB Smokers: Variable, but usually less than 10% Toxic: 20-30% COHB Lethal: Greater than 60% COHB Methemoglobin, Coox 0.5 <=1.5 % [facility] Source Coox Mixed Venous [facility] Blood 05/12/2023 1:14 AM EDT 05/12/2023 1:14 AM EDT Radha Hollins MD POINT OF CARE TEST ORDERABLES [facility] [place] [address] * (ABNORMAL) BLOOD GAS 2 ARTERIAL (05/12/2023 1:06 AM EDT) pH, Arterial 7.34(L) 7.35 - 7.45 [facility] PCO2, Arterial 30(L) 35 - 45 mmHg [facility] PO2, Arterial 81(L) 85 - 104 mmHg [facility] Bicarbonate, Arterial 15.7(L) 20.0 - 26.0 mmol/L [facility] Base Excess, Arterial -10.1(L) -3.0 - 3.0 mmol/L [facility] Hgb Blood Gas 11.0(L) 11.7 - 15.5 g/dL [facility] Oxyhemoglobin, Arterial 92.3(L) 94.0 - 97.0 % [facility] Carboxyhemoglob in, Arterial 0.2 % [facility] Comment: Nonsmokers: 0.5-1.5% COHB Smokers: Variable, but usually less than 10% Toxic: 20-30% COHB Lethal: Greater than 60% COHB Methemoglobin, Arterial 0.6 <=1.5 % [facility] Na Whole Blood 131(L) 135 - 145 mmol/L [facility] K Whole Blood 4.2 3.5 - 5.0 mmol/L [facility] Comment: Please note: Patients with WBC >100,000 may have falsely elevated Potassium levels. Contact the Clinical Chemistry Laboratory if there are any questions. ICa Whole Blood 1.13(L) 1.15 - 1.33 mmol/L [facility] Comment: Note: ??Total bilirubin higher than 20 mg/dL may lead to falsely low ionized calcium. CL Whole Blood 99 98 - 107 mmol/L [facility] Gluc Whole Bld 132 65 - 199 mg/dL [facility] Comment:Diabetes: >=200 mg/d L plus symptoms. Lactate WB 2.7(H) 0.5 - 2.2 mmol/L [facility] Flow Art 5.0 LPM [facility] Blood 05/12/2023 1:06 AM EDT 05/12/2023 1:06 AM EDT Radha Hollins MD POINT OF CARE TEST ORDERABLES [facility] [place] [address] * (ABNORMAL) Differential, Automated (05/12/2023 1:05 AM EDT) Neutrophil % 83.3 % [facility] Neutrophil Absolute 7.49(H) 1.70 - 6.10 x10(3)/mc L [facility] Lymph % 7.1 % [facility] Lymphocytes Abs 0.6(L) 0.9 - 3.2 x10(3)/mc L [facility] Monocyte % 8.9 % [facility] Monocyte Abs 0.8 0.3 - 0.9 x10(3)/mc L [facility] Eos % 0.0 % [facility] Eosinophils Abs 0.0 0.0 - 0.4 x10(3)/mc L [facility] Basophil % 0.1 % [facility] Baso Absolute 0.0 0.0 - 0.1 x10(3)/mc L [facility] Immature Gran % 0.60 % [facility] Comment: Immature granulocytes(IG's)percentage and absolute count will include metamyelocytes, myelocytes, and promyelocytes. Blood smears from CBCs yielding IG's will be scanned manually for concordance. If this scan disagrees with the automated IG or if promyelocytes are noted, a manual differential will be performed. Immature Gran Absolute 0.05(H) 0.00 - 0.04 x10(3)/mc L [facility] Blood 05/12/2023 1:05 AM EDT 05/12/2023 1:15 AM EDT Narrative Resulting Agency Comment Spec In Lab Gianni Fletcher MD HEMATOLOGY ORDERABLE S [facility] [place] [address] * (ABNORMAL) Hemogram (05/12/2023 1:05 AM EDT) White Blood Cell 9.0 4.0 - 9.5 x10(3)/mc L [facility] Red Blood Cell 3.01(L) 4.00 - 5.21 x10(6)/mc L [facility] Hemoglobin 9.8(L) 11.7 - 15.5 g/dL [facility] Hematocrit 28.7(L) 35.7 - 45.8 % [facility] Mean Cell Volume 95.3(H) 82.6 - 94.4 fL [facility] Mean Cell Hemoglobin 32.6(H) 27.1 - 32.0 pg [facility] Mean Cell Hemoglobin Concentration 34.1 31.7 - 35.0 g/dL [facility] Platelet 186 145 - 357 x10(3)/mc L [facility] RDW Standard Deviation 43.7 37.0 - 46.0 fL [facility] RDW coefficient of variation 12.7 11.5 - 14.1 % [facility] Mean Platelet Volume 10.3 7.6 - 12.9 fL [facility] NRBC% auto 0.0 % [facility] NRBC Absolute 0.000 0.000 - 0.000 x10(3)/ L [facility] Blood 05/12/2023 1:05 AM EDT 05/12/2023 1:15 AM EDT Narrative Resulting Agency Comment Spec In Lab Gianni Fletcher MD HEMATOLOGY ORDERABLE S [facility] [place] [address] * (ABNORMAL) Comprehensive metabolic panel (non-fasting) (05/12/2023 1:05 AM EDT) Glucose 141 65 - 199 mg/dL [facility] Comment:Diabetes: >=200 mg/d L plus symptoms Blood Urea Nitrogen 63(H) 8 - 18 mg/dL [facility] Creatinine 1.86(H) 0.70 - 1.20 mg/dL [facility] Sodium 131(L) 135 - 145 mmol/L [facility] Potassium 4.4 3.5 - 5.0 mmol/L [facility] Comment: Please note: ??Patients with WBC >100,000 may have falsely elevated Potassium levels. ??For accurate Potassium quantification in these patients send serum separator tube (gold top) for subsequent determinations. ??Contact the Clinical Chemistry Laboratory if there are any questions. Chloride 96(L) 98 - 107 mmol/L [facility] Carbon Dioxide 14(L) 22 - 31 mmol/L [facility] Anion Gap 21(H) 5 - 15 mmol/L [facility] Calcium 9.0 8.5 - 10.5 mg/dL [facility] Protein, Total 6.6 6.1 - 8.0 g/dL [facility] Albumin 3.9 3.2 - 5.2 g/dL [facility] Aspartate Aminotransferase 1,227(H) 0 - 30 unit/L [facility] Alanine Aminotransferase 1,097(H) 0 - 30 unit/L [facility] Alkaline Phosphatase 108(H) 35 - 105 unit/L [facility] Bilirubin, Total 1.0 0.2 - 1.3 mg/dL [facility] Est Glomerular Filtration Rate 29(L) >=60 mL/min/1. 73 m?? [facility] Comment: This patient's estimated [...] Lab Radha Hollins MD CHEMISTRY ORDERABL ES [facility] [place] [address] * XR Chest One View (05/12/2023 1:00 [...] questions please contact the health respiratory care program director that requested your imaging [...] have questions please contactthe health respiratory care program director that requested your imaging first. Radha Hollins MD IMG DX ORDERABLES * (ABNORMAL) Coox2 (05/12/2023 12:30 AM EDT) pO2, Coox 22 mmHg [facility] Hgb Blood Gas 10.9(L) 11.7 - 15.5 g/dL [facility] Oxyhemoglobin, Coox 25.1 % [facility] Carboxyhemoglo bin, Coox 0.3 % [facility] Comment: Nonsmokers: 0.5-1.5% COHB Smokers: Variable, but usually less than 10% Toxic: 20-30% COHB Lethal: Greater than 60% COHB Methemoglobin, Coox 1.4 <=1.5 % [facility] Source Coox Mixed Venous [facility] Blood 05/12/2023 12:3 0 AM EDT 05/12/2023 12:30 AM EDT Radha Hollins MD POINT OF CARE TEST ORDERABLES [facility] [place] [address] * XR Chest One View (05/11/2023 11:45 [...] questions please contact the health respiratory care program director that requested your imaging [...] have questions please contactthe health respiratory care program director that requested your imaging first. Radha Hollins MD IMG DX ORDERABLES * (ABNORMAL) Lactate, whole blood, send to lab ([facility] [place] [place] (05/11/2023 7:40 PM EDT) Lactate WB 4.8(Critic al) 0.5 - 2.2 mmol/L [facility] Comment:Called by: NIKI, Read back by: Magdalena Baires, Date/Time:05/11/23 19:54. Blood 05/11/2023 7:40 PM EDT 05/11/2023 7:49 PM EDT Narrative Resulting Agency Comment Spec In Lab Radha Hollins MD CHEMISTRY ORDERABL ES Performing Organization Address [facility] Co de Phone Number [facility] [place] [address] * Urine culture (05/11/2023 7:22 PM EDT) Urine Culture 50,000-99,000 cfu/ml Normal mucosal herman Susceptibilit y testing not routinely performed for Coagulase Negative Staphylococcu s species and other Gram Positive organisms from urine. [facility] Clean Catch Urine 05/11/2023 7:22 PM EDT 05/11/2023 8:50 PM EDT Narrative Resulting Agency Comment Spec In Lab Brody Dale Eusebio OSBORN MICROBIOLOGY - GENE RAL ORDERABLES Performing Organization Address [facility] de Phone Number [facility] [place] [address] * (ABNORMAL) Urinalysis Microscopic Exam (05/11/2023 7:22 PM EDT) RBC, Urine 2 0 - 4 /HPF [facility] WBC, Urine >100(H) 0 - 5 /HPF [facility] Bacteria, Urine Occasional (A) None /HPF [facility] Squamous Epithelial Cells Raw Data, Urine 5(H) <=4 /HPF [facility] Hyaline Casts, Urine 3(H) 0 - 2 /LPF [facility] Clean Catch Urine 05/11/2023 7:22 PM EDT 05/11/2023 7:31 PM EDT Narrative Resulting Agency Comment Spec In Lab Brody Kaplan APRN URINE ORDERABLES Performing Organization Address [facility] Co de Phone Number [facility] [place] [address] * (ABNORMAL) Urinalysis with reflex Culture (05/11/2023 7:22 PM EDT) Glucose, Urine Dipstick Negative Negative mg/dL [facility] Protein, Urine Dipstick Trace(A) Negative mg/dL [facility] Bilirubin, Urine Dipstick Negative Negative mg/dL [facility] Comment: Clinical correlation required for positive Urine Bilirubin results as false positive may occur with some drugs and drug related products. If a false positive is suspected a serum total bilirubin should be considered if clinically indicated. Urobilinogen, Urine Dipstick Normal Normal mg/dL [facility] pH, Urn (dipstick) 5.0 5.0 - 8.0 [facility] Blood, Urine Dipstick Trace(A) Negative mg/dL [facility] Ketone, Urine Dipstick Negative Negative mg/dL [facility] Nitrite, Urine Dipstick Negative Negative [facility] Leukocytes, Urine Dipstick Moderate(A) Negative mcL [facility] Appearance, Urine Dipstick Cloudy(A) Clear [facility] Specific [place] Urine Automated >=1.030(A) 1.005 - 1.030 [facility] Color, Urine Dipstick Yellow Yellow [facility] Reflex to Culture Yes [facility] Clean Catch Urine 05/11/2023 7:22 PM EDT 05/11/2023 7:31 PM EDT Narrative Resulting Agency Comment Spec In Lab Brody Kaplan APRN URINE ORDERABLES Performing Organization Address [facility] Co de Phone Number [facility] [place] [address] * (ABNORMAL) pro-Brain Natriuretic Peptide (05/11/2023 7:11 PM EDT) NT-proBNP >35,000(H) <=124 pg/mL [facility] Blood 05/11/2023 7:11 PM EDT 05/11/2023 7:26 PM EDT Narrative Resulting Agency Comment Spec In Lab Radha Hollins MD CHEMISTRY ORDERABL ES Performing Organization Address City/[facility] Co de Phone Number [facility] [place] [address] * (ABNORMAL) Lactate, whole blood, send to lab ([facility] [place] (05/11/2023 2:47 PM EDT) Lactate WB 2.9(H) 0.5 - 2.2 mmol/L [facility] Blood 05/11/2023 2:47 PM EDT 05/11/2023 2:53 PM EDT Narrative Resulting Agency Comment Spec In Lab Juan Luis Gonzalez MD CHEMISTRY ORDERABLES Performing Organization Address City/State/[facility] Co de Phone Number [facility] [place] [address] * (ABNORMAL) CT Angiogram Abdomen & Pelvis [...] questions please contact the health respiratory care program director that requested your imaging [...] questions please contact the health respiratory care program director that requested your imaging [...] 610 mm2 Circumference: 88 mm Calcification: Mild Bvluxto-mi-vovwduhi height: Left: 6.2 mm Right: 5.8 mm THORACIC AORTA Description: Normal course and caliber. ??Mild diffuse atherosclerotic changes. No acute aortopathy noted. Resource Management Specialist dimensions: Aortic root: 27.6 mm Max ascending aorta: 30.5 mm x 27.7 mm Suggested fluoroscopic angulation based on line extending through the nadirs of the three sinuses of Valsalva, set equidistant: ?? GREENLAND[place] ??9 degrees; cranial 7 degrees MITRAL: Mitral [...] 610 mm2 Circumference: 88 mm Calcification: Mild Uziqnts-iu-setyidnk height: Left: 6.2 mm Right: 5.8 mm THORACIC AORTA Description: Normal course and caliber. Mild diffuse atheroscleroticchanges. No acute aortopathy noted. Resource Management Specialist dimensions: Aortic root: 27.6 mm Max ascending aorta: 30.5 mm x 27.7 mm Suggested fluoroscopic angulation based on line extending through thenadirs of the three sinuses of Valsalva, set equidistant: GREENLAND[place] 9 degrees; cranial 7 degrees MITRAL: Mitral [...] have questions please contactthe health respiratory care program director that requested your imaging first. Antelmo Sharma MD IMG CT ORDERABLES * (ABNORMAL) Lactate, whole blood, send to lab ([facility] [place] (05/11/2023 9:29 AM EDT) Lactate WB 3.1(H) 0.5 - 2.2 mmol/L [facility] Blood 05/11/2023 9:29 AM EDT 05/11/2023 9:38 AM EDT Narrative Resulting Agency Comment Spec In Lab Juan Luis Gonzalez MD CHEMISTRY ORDERABLES [facility] [place] [address] * (ABNORMAL) Differential, Automated (05/11/2023 4:42 AM EDT) Neutrophil % 78.1 % [facility] Neutrophil Absolute 5.46 1.70 - 6.10 x10(3)/mc L [facility] Lymph % 10.6 % [facility] Lymphocytes Abs 0.7(L) 0.9 - 3.2 x10(3)/mc L [facility] Monocyte % 9.6 % [facility] Monocyte Abs 0.7 0.3 - 0.9 x10(3)/mc L [facility] Eos % 0.0 % [facility] Eosinophils Abs 0.0 0.0 - 0.4 x10(3)/mc L [facility] Basophil % 0.4 % [facility] Baso Absolute 0.0 0.0 - 0.1 x10(3)/mc L [facility] Immature Gran % 1.30 % [facility] Comment: Immature granulocytes(IG's)percentage and absolute count will include metamyelocytes, myelocytes, and promyelocytes. Blood smears from CBCs yielding IG's will be scanned manually for concordance. If this scan disagrees with the automated IG or if promyelocytes are noted, a manual differential will be performed. Immature Gran Absolute 0.09(H) 0.00 - 0.04 x10(3)/mc L [facility] Blood 05/11/2023 4:42 AM EDT 05/11/2023 4:49 AM EDT Narrative Resulting Agency Comment Spec In Lab Klaudia Reid MD HEMATOLOGY OR DERABLES [facility] [place] [address] * (ABNORMAL) Hemogram (05/11/2023 4:42 AM EDT) White Blood Cell 7.0 4.0 - 9.5 x10(3)/mc L [facility] Red Blood Cell 3.44(L) 4.00 - 5.21 x10(6)/mc L [facility] Hemoglobin 11.1(L) 11.7 - 15.5 g/dL [facility] Hematocrit 32.7(L) 35.7 - 45.8 % [facility] Mean Cell Volume 95.1(H) 82.6 - 94.4 fL [facility] Mean Cell Hemoglobin 32.3(H) 27.1 - 32.0 pg [facility] Mean Cell Hemoglobin Concentration 33.9 31.7 - 35.0 g/dL [facility] Platelet 165 145 - 357 x10(3)/mc L [facility] RDW Standard Deviation 43.1 37.0 - 46.0 fL [facility] RDW coefficient of variation 12.7 11.5 - 14.1 % [facility] Mean Platelet Volume 10.1 7.6 - 12.9 fL [facility] NRBC% auto 0.0 % [facility] NRBC Absolute 0.000 0.000 - 0.000 x10(3)/mc L [facility] Blood 05/11/2023 4:42 AM EDT 05/11/2023 4:49 AM EDT Narrative Resulting Agency Comment Spec In Lab Klaudia Reid MD HEMATOLOGY OR DERABLES Performing Organization Address [facility] Co de Phone Number [facility] [place] [address] * Heparin (unfractionated) Level (05/11/2023 4:42 AM EDT) UF Heparin 0.46 IU/mL [facility] Comment: Heparin (anti-Xa) [...] MD HEMATOLOGY ORDERAB LES Performing Organization Address [facility] Co de Phone Number [facility] [place] [address] * (ABNORMAL) Comprehensive metabolic panel (non-fasting) (05/11/2023 4:42 AM EDT) Pathologist [facility] Glucose 143 65 - 199 mg/dL [facility] Comment:Diabetes: >=200 mg/d L plus symptoms Blood Urea Nitrogen 42(H) 8 - 18 mg/dL [facility] Creatinine 1.24(H) 0.70 - 1.20 mg/dL [facility] Sodium 134(L) 135 - 145 mmol/L [facility] Potassium 4.6 3.5 - 5.0 mmol/L [facility] Comment: Please note: ??Patients with WBC >100,000 may have falsely elevated Potassium levels. ??For accurate Potassium quantification in these patients send serum separator tube (gold top) for subsequent determinations. ??Contact the Clinical Chemistry Laboratory if there are any questions. Chloride 99 98 - 107 mmol/L [facility] Carbon Dioxide 14(L) 22 - 31 mmol/L [facility] Anion Gap 21(H) 5 - 15 mmol/L [facility] Calcium 9.6 8.5 - 10.5 mg/dL [facility] Protein, Total 7.2 6.1 - 8.0 g/dL [facility] Albumin 3.7 3.2 - 5.2 g/dL [facility] Aspartate Aminotransferase 144(H) 0 - 30 unit/L [facility] Comment:result rechecked-ssc Alanine Aminotransferase 130(H) 0 - 30 unit/L [facility] Comment:result rechecked-ssc Alkaline Phosphatase 72 35 - 105 unit/L [facility] Bilirubin, Total 0.8 0.2 - 1.3 mg/dL [facility] Est Glomerular Filtration Rate 48(L) >=60 mL/min/1. 73 m?? [facility] Comment: This patient's estimated [...] Lab Radha Hollins MD CHEMISTRY ORDERABL ES [facility] [place] [address] * EKG 12 Lead (05/10/2023 1:16 PM EDT) Ventricular rate 118 BPM MUSE SYSTEM Atrial Rate 118 BPM MUSE SYSTEM P-R Interval 152 ms MUSE SYSTEM QRS Duration 104 ms MUSE SYSTEM Q-T Interval 316 ms MUSE SYSTEM QTC Calculated (Bezet) 442 ms MUSE SYSTEM Calculated P [place] 29 degrees MUSE SYSTEM Calculated R [place] 18 degrees MUSE SYSTEM Calculated T [place] -173 degrees MUSE SYSTEM INTERPRETATION Sinus tachycardia [...] Anterior leads Confirmed by MD Villareal Danette ([id number]) on 05/10/2023 8:47:46 PM MUSE SYSTEM 05/10/2023 1:16 PM EDT 05/10/2023 8:47 PM EDT Juan Luis Gonzalez MD ECG ORDERABLES MUSE SYSTEM * Lactate, whole blood, send to lab ([facility] [place] (05/10/2023 11:52 AM EDT) Lactate WB 1.8 0.5 - 2.2 mmol/L [facility] Blood 05/10/2023 11:5 2 AM EDT 05/10/2023 12:13 PM EDT Narrative Resulting Agency Comment Spec In Lab Juan Luis Gonzalez MD CHEMISTRY ORDERABLES [facility] [place] [address] * XR Chest One View (05/10/2023 11:16 [...] questions please contact the health respiratory care program director that requested your imaging [...] have questions please contactthe health respiratory care program director that requested your imaging first. Juan Luis Gonzalez MD IMG DX ORDERABLES * EKG 12 Lead (05/10/2023 7:59 AM EDT) Ventricular rate 115 BPM MUSE SYSTEM Atrial Rate 115 BPM MUSE SYSTEM P-R Interval 142 ms MUSE SYSTEM QRS Duration 102 ms MUSE SYSTEM Q-T Interval 322 ms MUSE SYSTEM QTC Calculated (Bezet) 445 ms MUSE SYSTEM Calculated P [place] 36 degrees MUSE SYSTEM Calculated R [place] 28 degrees MUSE SYSTEM Calculated T [place] -119 degrees MUSE SYSTEM INTERPRETATION Sinus tachycardia [...] Automated (05/10/2023 2:28 AM EDT) Pathologist [facility] Neutrophil % 77.1 % [facility] Neutrophil Absolute 4.01 1.70 - 6.10 x10(3)/mc L [facility] Lymph % 14.0 % [facility] Lymphocytes Abs 0.7(L) 0.9 - 3.2 x10(3)/mc L [facility] Monocyte % 7.7 % [facility] Monocyte Abs 0.4 0.3 - 0.9 x10(3)/mc L [facility] Eos % 0.4 % [facility] Eosinophils Abs 0.0 0.0 - 0.4 x10(3)/mc L [facility] Basophil % 0.4 % [facility] Baso Absolute 0.0 0.0 - 0.1 x10(3)/mc L [facility] Immature Gran % 0.40 % [facility] Comment: Immature granulocytes(IG's)percentage and absolute count will include metamyelocytes, myelocytes, and promyelocytes. Blood smears from CBCs yielding IG's will be scanned manually for concordance. If this scan disagrees with the automated IG or if promyelocytes are noted, a manual differential will be performed. Immature Gran Absolute 0.02 0.00 - 0.04 x10(3)/mc L [facility] Blood 05/10/2023 2:28 AM EDT 05/10/2023 2:57 AM EDT Narrative Resulting Agency Comment Spec In Lab Klaudia Reid MD HEMATOLOGY OR DERABLES [facility] [place] [address] * (ABNORMAL) Hemogram (05/10/2023 2:28 AM EDT) White Blood Cell 5.2 4.0 - 9.5 x10(3)/mc L [facility] Red Blood Cell 3.11(L) 4.00 - 5.21 x10(6)/mc L [facility] Hemoglobin 10.2(L) 11.7 - 15.5 g/dL [facility] Hematocrit 30.2(L) 35.7 - 45.8 % [facility] Mean Cell Volume 97.1(H) 82.6 - 94.4 fL [facility] Mean Cell Hemoglobin 32.8(H) 27.1 - 32.0 pg [facility] Mean Cell Hemoglobin Concentration 33.8 31.7 - 35.0 g/dL [facility] Platelet 151 145 - 357 x10(3)/mc L [facility] RDW Standard Deviation 44.9 37.0 - 46.0 fL [facility] RDW coefficient of variation 12.8 11.5 - 14.1 % [facility] Mean Platelet Volume 9.8 7.6 - 12.9 fL [facility] NRBC% auto 0.0 % [facility] NRBC Absolute 0.000 0.000 - 0.000 x10(3)/mc L [facility] Blood 05/10/2023 2:28 AM EDT 05/10/2023 2:57 AM EDT Narrative Resulting Agency Comment Spec In Lab Klaudia Reid MD HEMATOLOGY OR DERABLES [facility] [place] [address] * (ABNORMAL) Comprehensive metabolic panel (non-fasting) (05/10/2023 2:28 AM EDT) Glucose 100 65 - 199 mg/dL [facility] Comment:Diabetes: >=200 mg/d L plus symptoms Blood Urea Nitrogen 30(H) 8 - 18 mg/dL [facility] Creatinine 0.90 0.70 - 1.20 mg/dL [facility] Sodium 134(L) 135 - 145 mmol/L [facility] Potassium 4.1 3.5 - 5.0 mmol/L [facility] Comment: Please note: ??Patients with WBC >100,000 may have falsely elevated Potassium levels. ??For accurate Potassium quantification in these patients send serum separator tube (gold top) for subsequent determinations. ??Contact the Clinical Chemistry Laboratory if there are any questions. Chloride 102 98 - 107 mmol/L [facility] Carbon Dioxide 20(L) 22 - 31 mmol/L [facility] Anion Gap 12 5 - 15 mmol/L [facility] Calcium 9.3 8.5 - 10.5 mg/dL [facility] Protein, Total 6.4 6.1 - 8.0 g/dL [facility] Albumin 3.7 3.2 - 5.2 g/dL [facility] Aspartate Aminotransferase 24 0 - 30 unit/L [facility] Alanine Aminotransferase 14 0 - 30 unit/L [facility] Alkaline Phosphatase 70 35 - 105 unit/L [facility] Bilirubin, Total 0.5 0.2 - 1.3 mg/dL [facility] Est Glomerular Filtration Rate 70 >=60 mL/min/1. 73 m?? [facility] Comment: This patient's estimated [...] MD CHEMISTRY ORDERABL ES Performing Organization Address [facility] [place] [address] * Heparin (unfractionated) Level (05/10/2023 2:28 AM EDT) UF Heparin 0.37 IU/mL [facility] Comment: Heparin (anti-Xa) [...] MD HEMATOLOGY ORDERAB LES Performing Organization Address [facility]/ZIP Co de Phone Number [facility] [place] [address] * (ABNORMAL) Differential, Automated (05/09/2023 4:00 AM EDT) Neutrophil % 81.7 % [facility] Neutrophil Absolute 5.26 1.70 - 6.10 x10(3)/mc L [facility] Lymph % 10.7 % [facility] Lymphocytes Abs 0.7(L) 0.9 - 3.2 x10(3)/mc L [facility] Monocyte % 6.5 % [facility] Monocyte Abs 0.4 0.3 - 0.9 x10(3)/ L [facility] Eos % 0.5 % [facility] Eosinophils Abs 0.0 0.0 - 0.4 x10(3)/mc L [facility] Basophil % 0.3 % [facility] Baso Absolute 0.0 0.0 - 0.1 x10(3)/ L [facility] Immature Gran % 0.30 % [facility] Comment: Immature granulocytes(IG's)percentage and absolute count will include metamyelocytes, myelocytes, and promyelocytes. Blood smears from CBCs yielding IG's will be scanned manually for concordance. If this scan disagrees with the automated IG or if promyelocytes are noted, a manual differential will be performed. Immature Gran Absolute 0.02 0.00 - 0.04 x10(3)/ L [facility] Blood 05/09/2023 4:00 AM EDT 05/09/2023 4:19 AM EDT Narrative Resulting Agency Comment Spec In Lab Klaudia Reid MD HEMATOLOGY OR DERABLES Performing Organization Address City/State/[facility] Co de Phone Number [facility] [place] [address] * (ABNORMAL) Hemogram (05/09/2023 4:00 AM EDT) White Blood Cell 6.4 4.0 - 9.5 x10(3)/mc L [facility] Red Blood Cell 3.15(L) 4.00 - 5.21 x10(6)/mc L [facility] Hemoglobin 10.2(L) 11.7 - 15.5 g/dL [facility] Hematocrit 30.3(L) 35.7 - 45.8 % [facility] Mean Cell Volume 96.2(H) 82.6 - 94.4 fL [facility] Mean Cell Hemoglobin 32.4(H) 27.1 - 32.0 pg [facility] Mean Cell Hemoglobin Concentration 33.7 31.7 - 35.0 g/dL [facility] Platelet 151 145 - 357 x10(3)/mc L [facility] RDW Standard Deviation 44.7 37.0 - 46.0 fL [facility] RDW coefficient of variation 12.8 11.5 - 14.1 % [facility] Mean Platelet Volume 9.4 7.6 - 12.9 fL [facility] NRBC% auto 0.0 % [facility] NRBC Absolute 0.000 0.000 - 0.000 x10(3)/mc L [facility] Blood 05/09/2023 4:00 AM EDT 05/09/2023 4:19 AM EDT Narrative Resulting Agency Comment Spec In Lab Klaudia Reid MD HEMATOLOGY OR DERABLES [facility] [place] [address] * Heparin (unfractionated) Level (05/09/2023 4:00 AM EDT) UF Heparin 0.47 IU/mL [facility] Comment: Heparin (anti-Xa) levels should [...] Lab Radha Hollins MD HEMATOLOGY ORDERAB LES [facility] [place] [address] * (ABNORMAL) Comprehensive metabolic panel (non-fasting) (05/09/2023 4:00 AM EDT) Glucose 108 65 - 199 mg/dL [facility] Comment:Diabetes: >=200 mg/d L plus symptoms Blood Urea Nitrogen 31(H) 8 - 18 mg/dL [facility] Creatinine 1.03 0.70 - 1.20 mg/dL [facility] Sodium 137 135 - 145 mmol/L [facility] Potassium 4.4 3.5 - 5.0 mmol/L [facility] Comment: Please note: ??Patients with WBC >100,000 may have falsely elevated Potassium levels. ??For accurate Potassium quantification in these patients send serum separator tube (gold top) for subsequent determinations. ??Contact the Clinical Chemistry Laboratory if there are any questions. Chloride 102 98 - 107 mmol/L [facility] Carbon Dioxide 20(L) 22 - 31 mmol/L [facility] Anion Gap 15 5 - 15 mmol/L [facility] Calcium 9.3 8.5 - 10.5 mg/dL [facility] Protein, Total 6.6 6.1 - 8.0 g/dL [facility] Albumin 3.8 3.2 - 5.2 g/dL [facility] Aspartate Aminotransferase 32(H) 0 - 30 unit/L [facility] Alanine Aminotransferase 18 0 - 30 unit/L [facility] Alkaline Phosphatase 78 35 - 105 unit/L [facility] Bilirubin, Total 0.5 0.2 - 1.3 mg/dL [facility] Est Glomerular Filtration Rate 60 >=60 mL/min/1. 73 m?? [facility] Comment: This patient's estimated [...] MD CHEMISTRY ORDERABL ES Performing Organization Address [facility]/ZIP Co de Phone Number [facility] [place] [address] * (ABNORMAL) pro-Brain Natriuretic Peptide (05/08/2023 4:00 PM EDT) NT-proBNP 25,503(H) <=124 pg/mL [facility] Blood Venous Draw / Unknown 05/08/2023 4:00 PM EDT 05/08/2023 4:25 PM EDT Narrative Resulting Agency Comment Spec In Lab Juan Luis Gonzalez MD CHEMISTRY ORDERABLES Performing Organization Address [facility] Co de Phone Number [facility] [place] [address] * Magnesium (05/08/2023 4:00 PM EDT) Magnesium 0.82 0.69 - 1.07 mmol/L [facility] Blood 05/08/2023 4:00 PM EDT 05/08/2023 4:06 PM EDT Narrative Resulting Agency Comment Spec In Lab Enrique Chua MD CHEMISTRY ORDERABLES Performing Organization Address [facility] Co de Phone Number [facility] [place] [address] * Potassium (05/08/2023 4:00 PM EDT) Potassium 3.9 3.5 - 5.0 mmol/L [facility] Comment: Please note: ??Patients [...] CHEMISTRY ORDERABL ES Performing Organization Address [facility] de Phone Number [facility] [place] [address] * Heparin (unfractionated) Level (05/08/2023 4:00 PM EDT) Pathologist [facility] UF Heparin 0.43 IU/mL [facility] ITAL [facility] Comment: Heparin (anti-Xa) [...] ORDERAB LES Performing Organization Address [facility] Co de Phone Number [facility] [place] [address] * EKG 12 Lead (05/08/2023 3:51 PM EDT) Ventricular rate 98 BPM MUSE SYSTEM Atrial Rate 98 BPM MUSE SYSTEM P-R Interval 150 ms MUSE SYSTEM QRS Duration 102 ms MUSE SYSTEM Q-T Interval 358 ms MUSE SYSTEM QTC Calculated (Bezet) 457 ms MUSE SYSTEM Calculated P [place] 38 degrees MUSE SYSTEM Calculated R [place] 48 degrees MUSE SYSTEM Calculated T [place] -112 degrees MUSE SYSTEM INTERPRETATION Sinus rhythm with frequent and consecutive Premature ventricular and fusion complexes Septal infarct , age undetermined ST & T wave abnormality, consider anterolateral ischemia Abnormal ECG When compared with ECG of 09-NOV-2022 11:17, T wave inversion now evident in Anterolateral leads Confirmed by MD Harshil, Enrique Bell ([id number]) on 05/10/2023 8:11:46 AM MUSE SYSTEM 05/08/2023 3:51 PM EDT 05/10/2023 8:11 AM EDT Radha Hollins MD ECG ORDERABLES MUSE SYSTEM * (ABNORMAL) Differential, Automated (05/08/2023 11:38 AM EDT) Neutrophil % 71.3 % [facility] Neutrophil Absolute 2.91 1.70 - 6.10 x10(3)/mc L [facility] Lymph % 19.1 % [facility] Lymphocytes Abs 0.8(L) 0.9 - 3.2 x10(3)/mc L [facility] Monocyte % 9.0 % [facility] Monocyte Abs 0.4 0.3 - 0.9 x10(3)/mc L [facility] Eos % 0.2 % [facility] Eosinophils Abs 0.0 0.0 - 0.4 x10(3)/mc L [facility] Basophil % 0.2 % [facility] Baso Absolute 0.0 0.0 - 0.1 x10(3)/mc L [facility] Immature Gran % 0.20 % [facility] Comment: Immature granulocytes(IG's)percentage and absolute count will include metamyelocytes, myelocytes, and promyelocytes. Blood smears from CBCs yielding IG's will be scanned manually for concordance. If this scan disagrees with the automated IG or if promyelocytes are noted, a manual differential will be performed. Immature Gran Absolute 0.01 0.00 - 0.04 x10(3)/mc L [facility] Blood 05/08/2023 11:3 8 AM EDT 05/08/2023 11:44 AM EDT Narrative Resulting Agency Comment Spec In Lab Lincoln Sal MD HEMATOLOGY ORDERA BLES [facility] [place] [address] * (ABNORMAL) Hemogram (05/08/2023 11:38 AM EDT) White Blood Cell 4.1 4.0 - 9.5 x10(3)/mc L [facility] Red Blood Cell 3.05(L) 4.00 - 5.21 x10(6)/mc L [facility] Hemoglobin 10.2(L) 11.7 - 15.5 g/dL [facility] Hematocrit 29.6(L) 35.7 - 45.8 % [facility] Mean Cell Volume 97.0(H) 82.6 - 94.4 fL [facility] Mean Cell Hemoglobin 33.4(H) 27.1 - 32.0 pg [facility] Mean Cell Hemoglobin Concentration 34.5 31.7 - 35.0 g/dL [facility] Platelet 136(L) 145 - 357 x10(3)/mc L [facility] RDW Standard Deviation 44.3 37.0 - 46.0 fL [facility] RDW coefficient of variation 12.6 11.5 - 14.1 % [facility] Mean Platelet Volume 9.4 7.6 - 12.9 fL [facility] NRBC% auto 0.0 % [facility] NRBC Absolute 0.000 0.000 - 0.000 x10(3)/ L [facility] Blood 05/08/2023 11:3 8 AM EDT 05/08/2023 11:44 AM EDT Narrative Resulting Agency Comment Spec In Lab Lincoln Sal MD HEMATOLOGY ORDERA BLES [facility] [place] [address] * TSH (05/08/2023 11:38 AM EDT) Thyroid Stimulating Hormone 1.27 0.27 - 4.20 mcIU/mL [facility] Comment: Reference Interval (mcIU/mL): Females: ??First Trimester: 0.23-3.88 ??Second Trimester: 0.22-3.90 ??Third Trimester: 0.44-4.66 Blood 05/08/2023 11:3 8 AM EDT 05/08/2023 11:44 AM EDT Narrative Resulting Agency Comment Spec In Lab Enrique Chua MD CHEMISTRY ORDERABLES Performing Organization Address City/[facility]/ZIP Co de Phone Number [facility] [place] [address] * (ABNORMAL) Phosphorus (05/08/2023 11:38 AM EDT) Phosphorus 4.7(H) 2.5 - 4.5 mg/dL [facility] Blood 05/08/2023 11:3 8 AM EDT 05/08/2023 11:44 AM EDT Narrative Resulting Agency Comment Spec In Lab Enrique Chua MD CHEMISTRY ORDERABLES Performing Organization Address [facility] Co de Phone Number [facility] [place] [address] * Magnesium (05/08/2023 11:38 AM EDT) Magnesium 0.76 0.69 - 1.07 mmol/L [facility] Blood 05/08/2023 11:3 8 AM EDT 05/08/2023 11:44 AM EDT Narrative Resulting Agency Comment Spec In Lab Enrique Chua MD CHEMISTRY ORDERABLES Performing Organization Address [facility] Co de Phone Number [facility] [place] [address] * (ABNORMAL) Basic Metabolic Panel (non-fasting) (05/08/2023 11:38 AM EDT) Glucose 97 65 - 199 mg/dL [facility] Comment:Diabetes: >=200 mg/d L plus symptoms Blood Urea Nitrogen 27(H) 8 - 18 mg/dL [facility] Creatinine 1.02 0.70 - 1.20 mg/dL [facility] Sodium 139 135 - 145 mmol/L [facility] Potassium 4.2 3.5 - 5.0 mmol/L [facility] Comment: Please note: ??Patients with WBC >100,000 may have falsely elevated Potassium levels. ??For accurate Potassium quantification in these patients send serum separator tube (gold top) for subsequent determinations. ??Contact the Clinical Chemistry Laboratory if there are any questions. Chloride 105 98 - 107 mmol/L [facility] Carbon Dioxide 20(L) 22 - 31 mmol/L [facility] Anion Gap 14 5 - 15 mmol/L [facility] Calcium 9.4 8.5 - 10.5 mg/dL [facility] Est Glomerular Filtration Rate 60 >=60 mL/min/1. 73 m?? [facility] Comment: This patient's estimated [...] In Lab Enrique Chua MD CHEMISTRY ORDERABLES [facility] [place] [address] * ECHO COMPLETE (05/08/2023 11:02 AM EDT) Pathologist [facility] EF 25 [employer] Anatomical Region Laterality Modality Cardiac Other 05/08/2023 10:0 3 AM EDT Narrative 05/08/2023 11:51 AM EDT ? Echocardiogram Report Name: PURNIMA THACKER ?Study Date: 05/08/2023 10:03 AMBP: 92/64 mmHg ? Patient Location: [facility]^CV29^A : 1955 ? Height: 155 cm ? Account: [id number] Age: 67 yrs ? Weight: 78 kg Gender: Female ?BSA: 1.8 m2 Ordering Physician: ENRIQUE CHUA Referring Physician: MARIO ALBERTO CHIN Performed By: HCUCKIE Canchola Reason For Study: SAVR Stenosis Exam [...] worsening stenosis. Mitral regurgitation is similar. Procedure Complete-71809. Satisfactory quality. There is normal sinus rhythm. [...] Study Date: :03 AMBP: 92/64 mmHg Patient Location:[facility]^CV29^A : 1955 Height: 155 cm Account: [id number] Age: 67 yrs Weight: 78 kg Gender: [...] suggestsworsening stenosis. Mitral regurgitation is similar. Procedure Complete-[id number]. Satisfactory quality. There is normal sinus rhythm. 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 Mild coronary artery disease by [facility] 11/09/2022 Mixed connective tissue disease [...] Mild coronary artery disease by [facility] 11/09/2022 Stenosis of prosthetic aortic [...] dose on Wed05/12/23 at 1030, Until Discontinued, [place] teeth, Routine Given 05/12/2023 10:04 AM EDT [...] at 0831, Side port TKO rate, per [facility] flush protocol Rate/Dose Verify 05/13/2023 6:00 AM EDT 10 mL/hr 10 mL/hr Rate/Dose Verify 05/13/2023 4:00 AM EDT 10 mL/hr 10 mL/h r Rate/Dose Verify 05/13/2023 2:00 AM EDT 10 mL/hr 10 mL/h r sodium chloride 0.9% infusion 10-30 mL/hr, Intravenous, DAILY PRN, Starting on Wed05/12/23 at 0944, Until Wed05/17/23 at 0831, Side port TKO rate, per [facility] flush protocol. Rate/Dose Verify 05/17/2023 8:00 [...] Routine documented in this encounter Care Teams Vamp Liner Relationship Specialty Start Date End Date Magdalena Acosta MD [address] [place] [address] PCP - General Family Medicine 02/05/23 documented as of this encounter
--- OUTSIDE RECORDS SUMMARY | 2024-05-11 14:39 | XMS_ITS | Encounter Summary ---
[place] [address] Care Team Providers Care Healthcare Analyst Name Role Phone Magdalena Acosta MD Primary Care Provider [phone] Reason for Visit * Auth/Cert (Routine) Specialty Diagnoses / Procedures Referred By Contac t Referred To Contact Diagnoses Symptomatic severe aortic stenosis with low ejection fraction NSTEMI, CHF Enrique Chua MD [facility] [place] [address] [facility] Referral ID Status Reason Start Date Expiration Date Visits Re quested Visits Authorized [id number] 1 1 Encounter Details Date Type Department Care Team (Late st Contact Info) Description 05/12/2023 2:50 PM EDT - 05/12/2023 3:50 PM EDT Surgery [employer] [place] [address] Antelmo Sharma MD [facility] [place] [address] CARDIAC CATHETERIZATION Social History Tobacco Use Types [...] with PCP, Magdalena Acosta MD, or Primary Journeyman Electrician Pv Installer, Avis Mejia MD, in ~ 7-10 days. Patient to follow up with Rn Neurosurgical, Dr. Antelmo Sharma, in 2 weeks with an EKG, Echo, CBC, and CMP. Patient to follow up with Nephrology, their office to arrange. Mprm-Muewkv-lx interval: After initial 30 day follow-up appointment , all TAVR patients will follow-up again in one year with an echo. Inpatient Provider Contact Information: 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 Secondary Diagnoses: Active Hospital Problems Diagnosis S/P TAVR (transcatheter aortic valve replacement) Cardiogenic shock Symptomatic severe aortic stenosis with low ejection fraction Mild coronary artery disease by [facility] 11/09/2022 Heart failure with [...] Tube Placement Right 05/18/2023 Laure Ricks PA [facility] INTERVENTIONL RAD PRG CATH PLMT LEFT HEART CATH & ARTS W/INJ & ANGIO IMG S&I N/A 11/09/2022 CORONARY ANGIOGRAPHY; W [facility],POSSIBLE PCI (WRVU 5.6) performed by Mario Alberto Escobedo MD at [facility] CATH LABS PRG COMBINED RIGHT & LEFT HEART CATH W/INJ L VENTRICULOGRAPHY, IMG S&I N/A 05/12/2023 COMBINED RIGHT & LEFT HEART CATH,INC INJ FOR L VENTRICULOGRAPHY (WRVU 5.99) performed by Antelmo Sharma MD at [facility] CATH LABS PRO AORTOPLAS FOR SUPRAVALV STEN N/A 09/21/2016 @AORTOPLASTY FOR SUPRAVALVULAR STENOSIS (WRVU 29.33) performed by Alirio Hudson MD at [facility] MAIN OR PRO REPLACE AORTIC VALVE (TAVR/FEDERICO)PERC FEMORAL ARTERY APPROACH 05/12/2023 @TRANSCATHETER AORTIC VALVE REPLACEMENT (TAVR), PERCUTANEOUS FEMORAL (WRVU 22.47) performed by Alirio Hudson MD at [facility] CATH LABS PRO REPLACEMENT PROSTHETIC AORTIC VALVE OPEN W CARDIOPULMONARY BYPASS HOMOGRF/STENT N/A 09/21/2016 @REPLACE AORTIC VALVE, OPEN, W\CPB, W\PROSTHETIC VALVE (WRVU 41.32) performed by Alirio Hudson MD at [facility] MAIN OR Prior To Admission [...] Major Procedures/Operations: 05/12/23: Successful right transfemoral TAVR Xrbkg-bj-Dtxkx with a 23 mm Lai 3 THV. [...] and she was brought to the laboratory associate the following morning where Drs. Alirio Hudson [...] if you have questions. Please call your Rn Neurosurgical's office if you have any discharge or drainage from your procedural sites. Your Rn Neurosurgical, Dr. Antelmo Sharma and/or the Museum Exhibit Designer may be reached at . Antibiotic prophylaxis: You will need to take antibiotics prior to many invasive tests and treatments, such as dental cleaning, which should be done every 6 months. Your primary care physician or your dentist can prescribe this medication. Please refer to the card with the [place] [employer] Guidelines for more information. You have been provided with a copy of this card. Please refer to the [place] [employer] Guidelines for more information. Good [...] should resume a low fat, low cholesterol, [place] Diet Driving: No restrictions. Shower/Bath: You may shower daily. No baths, soaking, or swimming for the first week. Wound care: Wash the sites daily with soap and rinse well, pat dry. Assess for any signs of infection such as increased redness, pain, warmth or drainage. Please call your linting machine operator's office if you have any discharge or drainage from your procedural sites. If there is a lot of swelling, apply mamta wraps during the day and remove at bedtime. Elevate your legs when you are sitting. Home oxygen therapy: N/A Follow up appointments: Please schedule a follow-up appointment with your PCP, Magdalena Acosta MD, or Primary Journeyman Electrician Pv Installer in ~ 7-10 days. You have a follow-up appointment with your Rn Neurosurgical, Dr. Antelmo Sharma, in 2 weeks with an EKG, Echo, and labs prior to your appointment. You will need follow-up with Nephrology, their office will arrange. Xlio-Pipfok-os interval: After initial 30 day follow-up appointment [...] [facility] [place]rive at: [facility] [phone] 02/11/2024 2:00 PM Marek Bonilla MD Dermatology at [place] Arrive at: [facility] [address] [phone] Future Orders Complete By Expires Type and Screen Future Surgery, [facility] [place] SAME DAY PROGRAM ONLY) [DPU1299 Custom] 05/11/2023 Process Instructions: This test is intended ONLY for patients with upcoming surgery for testing prior to the day of surgery obtained through the same day program (4V or SDP). For ALL OTHER PATIENTS, order a Type and Screen (GEP110) This order includes the physician order for an ABO Recheck if requested by the Blood Bank. Scheduling Instructions: Comments: Questions: Date of surgery: CBC (with Diff) [WEO503 Custom] 06/05/2023 12/05/2023 Process Instructions: INCLUDES: WBC, RBC, Hgb, Hct, Platelets, RBC Indices and Differential Scheduling Instructions: Comments: Questions: Comprehensive metabolic panel (non-fasting) [LAB17 Custom] 06/05/2023 08/20/2023 Process Instructions: INCLUDES: Calcium, T Protein, Albumin, AST, ALT, Alk Phos, T Bili, BUN, Creat, GFR, Glucose, Lytes. Scheduling Instructions: Comments: Questions: Echocardiogram Transthoracic [61645 CPT(R)] 06/05/2023 12/05/2023 Process Instructions: Scheduling Instructions: Questions: Where will study be performed?: [facility] [place] [facility] Does the patient have Congenital Heart Disease?: Does patient require sedation?: GA rationale: EKG 12 Lead [25421 CPT(R)] 06/05/2023 12/05/2023 Process Instructions: Scheduling Instructions: Questions: Which location will this be performed?: [place] Is a rhythm strip needed?: No [employer] [EQ161 Custom] As directed Process Instructions: Scheduling Instructions: Questions: Device Needed: WALKER (E0143) Patient Height (cm): 154.9 cm (5' 0.98) Patient Weight: 75.4 kg (166 lb 3.2 oz) Diagnosis: Unsteady gait when walking Referral to Cardiac Rehab [ZNX243 Custom] As directed Process Instructions: If no progress note charted, please enter Clinical details in comments. Scheduling Instructions: Questions: My question or request is: s/p TAVR. Cardiac rehab at [facility]. Referral to Home Health [REF34 Custom] As directed Process Instructions: If no progress note charted, please enter Clinical details in comments. Scheduling Instructions: Comments: DOCUMENTATION FOR VNA SERVICES PATIENT'S LOCATION: Purnima Thacker [address] [place] [address] [phone] (home) Automotive Collision Repair Instructor's Name: Irineo and brother Raymond In discussion with the attending physician, it is certified that this patient is under his/her careand that MD, or an PEDIGREE RESEARCHER, SUPERVISOR PUBLIC MESSAGE SERVICE, or PA who is working directly with him/her, had a frpu-zo-xaoa encounter that meets the physician uqcj-lz-qtfe encounter requirements with this patient on 05/22/2023. [...] for managing ADLs. HOME HEALTH CARE AGENCY: [facility]. [address] [facility] [address] PHONE: [phone] FAX: [phone] Start of care: Ideally 24-48 hours after [...] Magdalena Acosta MD [address] [facility] [phone] All VNA agencies which cover the area [...] Surgery Date: 05/22/2023 CC: Magdalena Acosta MD SacatonMario Alberto maxwell MD [address] [place] [address] [place] [address] documented in this encounter Discharge Instructions * Patient Instructions* Vinod Juárez PA - 05/22/2023 9:32 AM EDT TAVR Discharge Instructions: Call your doctor if: You have a fever of greater than 101 degrees, shaking chills, if you develop redness or drainage from your procedure sites, or if you have questions. Please call your Rn Neurosurgical's office if you have any discharge or drainage from your procedural sites. Your Rn Neurosurgical, Dr. Antelmo Sharma and/or the Museum Exhibit Designer may be reached at . Antibiotic prophylaxis: You will need to take antibiotics prior to many invasive tests and treatments, such as dental cleaning, which should be done every 6 months. Your primary care physician or your dentist can prescribe this medication. Please refer to the card with the [place] [employer] Guidelines for more information. You have been provided with a copy of this card. Please refer to the [place] Guidelines for more information. Good [...] should resume a low fat, low cholesterol, [place] Diet Driving: No restrictions. Shower/Bath: You may shower daily. No baths, soaking, or swimming for the first week. Wound care: Wash the sites daily with soap and rinse well, pat dry. Assess for any signs of infection such as increased redness, pain, warmth or drainage. Please call your linting machine operator's office if you have any discharge or drainage from your procedural sites. If there is a lot of swelling, apply mamta wraps during the day and remove at bedtime. Elevate your legs when you are sitting. Home oxygen therapy: N/A Follow up appointments: Please schedule a follow-up appointment with your PCP, Magdalena Acosta MD, or Primary Journeyman Electrician Pv Installer in ~ 7-10 days. You have a follow-up appointment with your Rn Neurosurgical, Dr. Antelmo Sharma, in 2 weeks with an EKG, Echo, and labs prior to your appointment. You will need follow-up with Nephrology, their office will arrange. Aolx-Gbppos-pb interval: After initial 30 day follow-up appointment [...] ins ( tef) Haven Ba, PT Pager: [phone] Physical Therapy Inpatient Rehabilitation Department * Ncio Palacios PA - 05/21/2023 8:43 AM EDT [...] 0600 and on the weekends please page [phone]. * Jory Paniagua - 05/20/2023 3:52 PM [...] Last Bowel Movement: 05/20/23 Jory Paniagua Manager Group * Tong Mike, OT - 05/20/2023 3:16 [...] Tube Placement Right 05/18/2023 Laure Ricks PA [facility] INTERVENTIONL RAD PRG CATH PLMT LEFT HEART CATH & ARTS W/INJ & ANGIO IMG S&I N/A 11/09/2022 CORONARY ANGIOGRAPHY; W [facility],POSSIBLE PCI (WRVU 5.6) performed by Mario Alberto Escobedo MD at [facility] CATH LABS PRG COMBINED RIGHT & LEFT HEART CATH W/INJ L VENTRICULOGRAPHY, IMG S&I N/A 05/12/2023 COMBINED RIGHT & LEFT HEART CATH,INC INJ FOR L VENTRICULOGRAPHY (WRVU 5.99) performed by Antelmo Sharma MD at [facility] CATH LABS PRO AORTOPLAS FOR SUPRAVALV STEN N/A 09/21/2016 @AORTOPLASTY FOR SUPRAVALVULAR STENOSIS (WRVU 29.33) performed by Alirio Hudson MD at [facility] MAIN OR PRO REPLACE AORTIC VALVE (TAVR/FEDERICO)PERC FEMORAL ARTERY APPROACH 05/12/2023 @TRANSCATHETER AORTIC VALVE REPLACEMENT (TAVR), PERCUTANEOUS FEMORAL (WRVU 22.47) performed by Alirio Hudson MD at [facility] CATH LABS PRO REPLACEMENT PROSTHETIC AORTIC VALVE OPEN W CARDIOPULMONARY BYPASS HOMOGRF/STENT N/A 09/21/2016 @REPLACE AORTIC VALVE, OPEN, W\CPB, W\PROSTHETIC VALVE (WRVU 41.32) performed by Alirio Hudson MD at [facility] MAIN OR Social History: Patient lives alone. Home Setup: Pt lives on one level with tub shower and three steps to enter. DME: none used FRAME NAILER Baseline ADL/Mobility: Independent with ADLs and IADLs. [...] awareness: WFL Vision & Perception: corrective lenses maritime engineer Communication: WFL Range of motion, strength, coordination: [...] Discharge Disposition (OT): swing bed rehabilitation facility, alf facility(vs home with support for IADLs) Other [...] Discharge planning. Total Minutes, Occupational Therapy: 28 ([phone]) OT Evaluation Code Rationale: Diagnosis & Pertinent Co-Morbidities affecting Plan of Care: see PMHx Occupational Profile & Client History: Brief Expanded Extensive x Assessment of Occupational Performance: 1-3 performance deficits 3-5 performance deficits x 5 + performance deficits Clinical Decision Making: Low Moderate High x Clinical decision making of moderate complexity using standardized patient assessment instrument and measurable assessment of functional outcome. Pager: [phone] TONG MIKE OT 05/20/2023 Occupational Therapy Rehabilitation [...] 0600 and on the weekends please page [phone]. * Rylie Rodriguez MD - 05/19/2023 3:59 [...] and plan. Cynthia Blackburn MD Nephrology Pager: [phone] * Diana Espino - 05/19/2023 1:49 PM EDT Ged Teacher Encounter Note Patient Name: Purnima Thacker : [id number] MR#: [id number] Admit Date: 05/08/2023 9:14 AM Hospital Day [...] returning home alone. Anticipated Discharge Disposition (PT): alf facility, swing bed rehabilitation facility Consult Recommendations: [...] as stated. Total Minutes, Physical Therapy: 38 ([phone]) Henrik Navarrete PTA Pager: [phone] Physical Therapy Inpatient Rehabilitation Department * Nico [...] 0600 and on the weekends please page [phone]. * Laure Ricks PA - 05/19/2023 7:56 [...] Ricks PA-C Interventional Radiology IR Team Pager [phone] * Consuelo Espinoza RN - 05/18/2023 4:13 PM EDT ANGIO NURSING DATABASE Name: Purnima Thacker Date of : 1955 AGE: 67 y.o. Address: [address] [place], [place] [address] (home) Mobile: No relevant phone numbers on [...] Mild coronary artery disease by [facility] 11/09/2022 I25.10 Heart failure [...] and plan. Cynthia Blackburn MD Nephrology Pager: [phone] * Magdalena Puri, TELECOMMUNICATIONS SWITCH TECHNICIAN - 05/18/2023 10:51 AM EDT Images from the original note were not included. [place] [address] STRUCTURAL HEART DISEASE CONSULTATION NOTE PRIMARY CARE [...] stenosis. She is now status post TAVR Lanmq-xm-Njbyt with a 23 mm Lai 3 THV 05/12/[address] Sharma. Preliminary findings: Successful right transfemoral TAVR Uygfz-sa-Gpypw with a 23 mm Lai 3 THV. [...] Mild coronary artery disease by [facility] 11/09/2022 Heart failure with [...] mL 5- 20 mL Intravenous Q1Min PRN TampaMara ernandez APRN aspirin chewable tablet 81 mg 81 mg Oral Daily MaggieMara APRN 81 mg at 05/18/23 0826 ondansetron (pf) (Zofran) (2 mg/mL) injection 4 mg 4 mg Intravenous Q8H PRN MaggieMara APRN4 mg at 05/12/23 0736 pantoprazole EC (Protonix) tablet 40 mg 40 mg Oral Daily TampaMara ernandez APRN 40 mg at 05/18/23 0826 [...] mL 0.5 mL Intramuscular Prior to discharge TampaMara ernandez APRN FAMILY HISTORY: No family history [...] stenosis. She is now status post TAVR Iqcgv-qy-Vihzc with a 23 mm Lai 3 THV [...] Magdalena Puri APRN Structural Heart Team Pager [phone] Team Office Please see addendum by Dr. Sharma for final plan and recommendations Associated attestation - Antelmo Sharma MD - 05/19/2023 10:52 PM EDT I have reviewed Magdalena Puri APRN's above history and I agree with the details as written. The assessment and plan were formulated in discussion with me and I agree with them as documented. Antelmo Sharma MD Pager [phone] * Nico Palacios PA - 05/18/2023 8:13 [...] 0600 and on the weekends please page [phone]. * Loli Hernandez, PT - 05/17/2023 5:27 [...] returning home alone. Anticipated Discharge Disposition (PT): alf facility, swing bed rehabilitation facility Consult Recommendations: [...] plan as stated. Time IN / OUT: 6815-8349 Total Minutes, Physical Therapy: 54 Billing Code: te-sx2, te-f, angely HERNANDEZ PT Pager: [phone] Physical Therapy Inpatient Rehabilitation Department * Cynthia [...] Well controlled. Cynthia Blackburn MD Nephrology Pager: [phone] * Mara Serrano, TELECOMMUNICATIONS SWITCH TECHNICIAN - 05/17/2023 8:26 AM EDT Cardiac Surgery [...] 0600 and on the weekends please page [phone]. * Guerda Del Valle C - 05/16/2023 10:44 AM EDT Nutrition Services Note - Low Nutrition Acuity Purnima Thacker is a 67 y.o. female Reason for intervention: hospital day 9 Nutrition Plan: Continue diet order Encourage good PO Lasix and Zofran noted Added special serve: open containers Monitor weight Patient scheduled for a hospital day 9 nutrition evaluation. Inspector Material Disposition met with pt at bedside. Pt reports that her appetite and PO has much improved since admission. Denies nausea/vomiting or trouble chewing/swallowing. Inspector Material Disposition provided snack list but pt not interested in adding snacks at this time. Her only concern was that she is worried that she will eat too much which will cause too much pressure in her stomach. Inspector Material Disposition assured pt and suggested eating smaller but [...] Bowel Movement: 05/10/23 Guerda Del Valle Manager Group * Vinod Juárez PA - 05/16/2023 10:19 [...] 0600 and on the weekends please page [phone]. * Michael Jeffers MD - 05/16/2023 8:11 AM EDT Images from the original note were not included. Hypertension-Nephrology Inpatient Follow-up Purnima Thacker [id number] 1955 ID: 67 y.o. old female seen [...] IRONSAT 12 (L) 05/16/2023 SFOLATE >20.0 07/03/2022 [id number] 07/03/2022 Lab Results Component Value Date [...] Dr. Ayoub. Please contact me at phone: [phone] or pager: [phone] with any questions. Michael Jeffers MD Nephrology [...] -Nephrology consulted, labs and renal US ordered -Alkol removed, ambulated around the unit -bilateral pleural [...] 0600 and on the weekends please page [phone]. * Hortencia Cody MD - 05/15/2023 2:07 [...] not included. Hypertension-Nephrology Inpatient Follow-up Purnima Thacker [id number] 1955 ID: 67 y.o. old female seen [...] HGB 7.8 (L) 05/13/2023 SFOLATE >20.0 07/03/2022 [id number] 07/03/2022 Lab Results Component Value Date [...] Dr. Ayoub. Please contact me at phone: [phone] or pager: [phone] with any questions. Michael Jeffers MD Nephrology [...] last 720 hours. T/L/D Art ETT CVL [place] ASSESSMENT, MANAGEMENT, and DECISION MAKIN y.o. female [...] outlined inthis evaluation. HAVEN BA, PT Pager: [phone] Physical Therapy Inpatient Rehabilitation Department Time IN / OUT: 5046-4990 Total time: Total Minutes, Physical Therapy: 30 [...] 0600 and on the weekends please page [phone]. * Antelmo Sharma MD - 05/14/2023 7:56 AM EDT Images from the original note were not included. [facility] [address] STRUCTURAL HEART DISEASE CONSULTATION NOTE PRIMARY CARE [...] stenosis. She is now status post TAVR Rdnne-kj-Jrmea with a 23 mm Lai 3 THV 05/12/[address] Sharma. Preliminary findings: Successful right transfemoral TAVR Vgmwf-fl-Alitq with a 23 mm Lai 3 THV. [...] Mild coronary artery disease by [facility] 11/09/2022 Heart failure with [...] stenosis. She is now status post TAVR Tynyy-gr-Tgfmz with a 23 mm Lai 3 THV 05/12/[address] Sharma. Janet TAVR case notable for coronary LAD protective MINNA. Status post TAVR, the patient was transferred to [facility] for pressor and inotropic support. Pressors weaned overnight 05/12. Cardiac indices by thermodilution remained >3 with continued Milrinone 0.125 mcg/kg/min prior to PAC removal. EKG todayNSR with stable NM/QRS intervals. Hemoglobin slowly down-trending (8.2-> 7.8-> 7.2). [...] Brody Kaplan APRN Structural Heart Team Pager [phone] Team Office Please see addendum by Dr. [...] exposure. Nephrology consultationtoday. Antelmo Sharma MD Pager [phone] * Antelmo Cardenas RN - 05/14/2023 5:18 AM EDT Pt AOx4, complaining of mild/moderate generalized pain (states her Meloxicam is effective at home) currently refusing prn oxycodone. NAEON, hemodynamically stable on Milrinone, Maps >65, ST in pdk550's down to NSR with frequent multifocal PVC's. [...] not included. [facility] [address] STRUCTURAL HEART DISEASE PROGRESS NOTE PRIMARY CARE [...] stenosis. She is now status post TAVR Johmz-ar-Oursk with a 23 mm Lai 3 THV 05/12/[address] Sharma. Preliminary findings: Successful right transfemoral TAVR Druju-wz-Yyqms with a 23 mm Lai 3 THV. [...] Mild coronary artery disease by [facility] 11/09/2022 Heart failure with [...] stenosis. She is now status post TAVR Stkdy-dx-Mbiht with a 23 mm Lai 3 THV 05/12/[address] Sharma. Janet TAVR case notable for coronary LAD protective MINNA. Status post TAVR, the patient was transferred to [facility] for pressor and inotropic support. Pressors weaned overnight. Cardiac indices by thermodilution remain greater than 3 with continued Milrinone 0.125 mcg/kg/min. EKG today NSR with stable NM/QRS intervals. Hemoglobin 7.8 [...] Brody Kaplan APRN Structural Heart Team Pager [phone] Team Office Please see addendum by Dr. [...] DAPT moving forward. Antelmo Sharma MD Pager [phone] * Bonita Miguel PA - 05/13/2023 8:30 AM EDT Cardiac Surgery Progress Note Purnima Thacker is a 67 y.o. 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 PMH of s/p tissue AVR (2017), mixed connective tissue disease HTN, HLD, NICOLAS, diverticulosis, rosacea, essential tremor, and depression. 24h Events: From laboratory associate for above procedure Extubated at ~1600 to [...] soft b/l, no evidence of hematoma. Tubes/Lines/Drains: Alkol, RIJ, A-line, Art, PIV Assessment/Plan: 67 y.o. [...] 0600 and on the weekends please page [phone]. * Onelia Schwartz MD - 05/12/2023 1:44 [...] Mild coronary artery disease by [facility] 11/09/2022 Heart failure with [...] FiO2 weaned to 40%. 1105: ABG 7.34/42/73/22 2910-7653: SBT performed and passed on these settings [...] PCP: Magdalena Acosta MD PCP phone number: [phone] Date of Admission: 05/08/2023 ( Hospital Day [...] 1447 PHART -- 7.34* 7.34* -- -- ARO8YAN -- 30* 30* -- -- PO2ART -- 72* 81* -- -- HJE7JIZ -- 16.0* 15.7* -- -- LACTATEVEN 2.4* 2.7* 2.7* 4.8* 2.9* VBG (Venous Blood Gas) Recent Labs 05/12/23 0700 05/12/238 05/12/2310505/11/23193905/11/23 1447 LACTATEVEN 2.4* 2.7* 2.7* 4.8* 2.9* Mixed Venous Sat Recent Labs 05/12/23 0508 05/12/23 0321 05/12/23 0114 05/12/23 0030 [id number] 30.7 32.7 37.3 25.1 Objective: Vitals Last [...] center worker that requested your imaging first. Electronically signed by: ALIX RUVALCABA MD, [facility] ([phone]), at 05/10/2023 1:[address] Cardiac for [...] center worker that requested your imaging first. Electronically signed by: Cullen Narayanan MD, [facility] ([phone]), at 05/11/2023 4:[address] Angiogram Abdomen [...] center worker that requested your imaging first. Electronically signed by: Eileen Gomes MD, [facility] ([phone]), at 05/11/2023 2:42 PM XR Chest One [...] center worker that requested your imaging first. Electronically signed by: Will Rowe MD, [facility] ([phone]), at 05/11/2023 11:57 PM XR Chest One [...] center worker that requested your imaging first. Electronically signed by: Will Rowe MD, [facility] ([phone]), at 05/12/2023 3:16 AM Assessment & Plan: [...] and inotrope. She is planned for a mvoee-on-hgktl TAVR this morning, which should hopefully improve [...] FACP, FACC Section of Cardiovascular Medicine [facility] Managing Memberpatient care coordinator [facility] * Noreen Deutsch RN - 05/12/2023 [...] Mild coronary artery disease by [facility] 11/09/2022 Heart failure with [...] 05/11/2023 4:11 PM EDT Reported off to CLERICAL SUPERVISOR and pt transferred over in the bed for higher level of care. * Antelmo Sharma MD - 05/11/2023 9:45 AM EDT Images from the original note were not included. [place] [address] [address] STRUCTURAL HEART DISEASE CONSULTATION NOTE PRIMARY CARE [...] who had been referred for possible TAVR hnhbh-nh-bukou evaluation. Her primary symptoms are of dyspnea [...] [facility]. 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 She states [...] Mild coronary artery disease by [facility] 11/09/2022 Heart failure with [...] send to lab ([facility] Result Value Ref Range Lactate WB 3.1 (H) 0.5 - 2.2 mmol/L Heparin (unfractionated) Level Result Value Ref Range Heparin UFH Level 0.46 IU/mL Lactate, whole blood, send to lab ([facility]) Result Value Ref [...] leads Confirmed by MD Harshil, Enrique Bell ([id number]) on 05/10/2023 8:11:46 AM Cardiac Cath 11/09/2022 [...] alert Dr. Hudson of her inpatient status, [place] primary cardiac surgeon. Based on recent clinic visit, tentative plan had been for TAVR JANET issa ferrera given her chronological age. Cardiac cath 11/09/2022 notable for non-obstructive coronary disease. TAVR CTAs planned for today. Will review her case with cardiac surgery to determine best timing and therapies for her valve intervention. Addendum 05/11/2023 6:48 PM Due to decompensating HFrEF, she was transferred to [facility] this afternoon for further management. TAVR CT imaging support for adequate ileofemoral access. Given her acute deterioration today, will planfor RTF TAVR on 05/12/2023. Brody Kaplan APRN Structural Heart Disease Pager [phone] Please see addendum by Dr. Sharma for [...] signed and dated. Antelmo Sharma MD Pager [phone] * Harini Lance MD - 05/11/2023 6:06 AM EDT Images from the original note were not included. Cardiology Progress Note Patient info: Name: Purnima Thacker : 1955 PCP: Magdalena Acosta MD PCP phone number: [phone] Date of Admission: 05/08/2023 ( Hospital Day [...] center worker that requested your imaging first. 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, 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) Mild coronary artery disease by [facility] 11/09/2022 Hyperlipidemia, unspecified NICOLAS [...] PCP: Magdalena Acosta MD PCP phone number: [phone] Date of Admission: 05/08/2023 ( Hospital Day [...] Mild coronary artery disease by [facility] 11/09/2022 Hyperlipidemia, unspecified NICOLAS [...] PCP: Magdalena Acosta MD PCP phone number: [phone] Date of Admission: 05/08/2023 ( Hospital Day [...] Gas) No results found for: PHART, PO2ART, XHU1DIT, LLQ1UKN Microbiology: Microbiology Results (Last 30 days) No [...] Mild coronary artery disease by [facility] 11/09/2022 Hyperlipidemia, unspecified NICOLAS [...] Mild coronary artery disease by [facility] 11/09/2022 I25.10 Heart failure with reduced ejection fraction due to heart valve disease I50.20, I38 Cardiogenic shock R57.0 S/P TAVR (transcatheter aortic valve replacement) Z95.2 Past Medical History: Diagnosis Date Anemia Past Surgical History: Procedure Laterality Date PRG CATH PLKY LEFT HEART CATH & ARTS W/INJ & ANGIO IMG S&I N/A 11/09/2022 CORONARY ANGIOGRAPHY; W [facility],POSSIBLE PCI (WRVU 5.6) performed by Mario Alberto Escobedo MD at [facility] CATH LABS PRO AORTOPLAS FOR SUPRAVALV STEN N/A 09/21/2016 @AORTOPLASTY FOR SUPRAVALVULAR STENOSIS (WRVU 29.33) performed by Alirio Hudson MD at [facility] MAIN OR PRO REPLACEMENT PROSTHETIC AORTIC VALVE OPEN W CARDIOPULMONARY BYPASS HOMOGRF/STENT N/A 09/21/2016 @REPLACE AORTIC VALVE, OPEN, W\CPB, W\PROSTHETIC VALVE (WRVU 41.32) performed by Alirio Hudson MD at [facility] MAIN OR Social History and [...] Mild coronary artery disease by [facility] 11/09/2022 I25.10 Heart failure with reduced ejection fraction due to heart valve disease I50.20, I38 Cardiogenic shock R57.0 S/P TAVR (transcatheter aortic valve replacement) Z95.2 Past Medical History: Diagnosis Date Anemia Past Surgical History: Procedure Laterality Date PRG CATH PLKY LEFT HEART CATH & ARTS W/INJ & ANGIO IMG S&I N/A 11/09/2022 CORONARY ANGIOGRAPHY; W [facility],POSSIBLE PCI (WRVU 5.6) performed by Mario Alberto Escobedo MD at [facility] CATH LABS PRO AORTOPLAS FOR SUPRAVALV STEN N/A 09/21/2016 @AORTOPLASTY FOR SUPRAVALVULAR STENOSIS (WRVU 29.33) performed by Alirio Hudson MD at [facility] MAIN OR PRO REPLACEMENT PROSTHETIC AORTIC VALVE OPEN W CARDIOPULMONARY BYPASS HOMOGRF/STENT N/A 09/21/2016 @REPLACE AORTIC VALVE, OPEN, W\CPB, W\PROSTHETIC VALVE (WRVU 41.32) performed by Alirio Hudson MD at [facility] MAIN OR Social History and [...] days, which prompted her to present to [employer]. She also endorses some intermittent retrosternal chest pain with exertion.She endorses some dizziness with exertion, but has not gotten faint or passed out. At [employer] [facility] she was noted to be afebrile, blood pressure 105/64, HR 120s, satting 95% on 2L NC. Labs from [employer] [facility] are below, of note she had [...] 89/59, which prompted the transfer to us. [facility] labs: CBC - Hgb 10.5 CMP - Cr 1.1 BNP 50859 HsTrop 1358 Lactate 1.6 D-dimer 1183 Interval History Patient was admitted to [facility] due to concern on low BP iso [...] Klaudia Reid MD Internal Medicine PGY-1 Pager [phone], M1-S1 Service Associated attestation - Juan Luis Gonzalez MD - 05/08/2023 10:00 PM EDT Cardiology Attending Addendum Active Hospital Problems Diagnosis Symptomatic severe aortic stenosis with low ejection fraction Heart failure with reduced ejection fraction due to heart valve disease Mild coronary artery disease by [facility] 11/09/2022 Hyperlipidemia, unspecified History of aortic valve replacement Resolved Hospital Problems No resolved problems to display. I have interviewed and examined the patient, reviewed the available data, and have discussed my findings, assessment and plan with the patient and the team on admission to S2 service (from [facility] service) today. I agree with Dr. Reid's [...] PCP: Magdalena Acosta MD PCP phone number: [phone] Date of Admission: 05/08/2023 ( Hospital Day 0 days ) Attending:Enrique Chua MD ID: Purnima Thacker is a 67 y.o. female w/ PMH of s/p bioprosthetic AVR in 2016 with recent concern for severe restenosis, HTN, HLD, mixed connective tissue disease, who presents in transfer from [employer] [facility] with worsening BONILLA and weight gain [...] four days, which promptedher to present to [employer] [facility]. She also endorses some intermittent retrosternal chest pain with exertion. She endorses some dizziness with exertion, but has not gotten faint or passed out. At [employer] [facility] she was noted to be afebrile, blood pressure 105/64, HR 120s, satting 95% on 2L NC. Labs from [employer] [facility] are below, of note she had [...] 89/59, which prompted the transfer to us. [facility] labs: CBC - Hgb 10.5 CMP - Cr 1.1 BNP 80935 HsTrop 1358 Lactate 1.6 D-dimer 1183 Vasoactive [...] tissue disease, who [facility] BONILLA and weight gain concerning [...] to the planned procedure. Hand Hygiene: The coal trimmer machine operator did perform hand hygiene prior to [...] Successful arterial line placement. Crispin Timmons MD Museum Exhibit Designer Associated attestation - Onelia Schwartz MD - [...] (flow was non-pulsatile) and appearance of blood. Alkol-Marily catheter was placed and locked at 55 [...] information for follow-up [facility], [facility] [address] [place] [address] Cardiac Rehab, [facility] [address] [place] [address] [facility], [facility] [address] [place] [address] Transportation: family or friend will provide *Brother [...] Type: *No Product type* / Secondary Insurance: [employer] [place] Prescription Coverage: Yes This plan was formulated with input from patient, family (please identify family/friend involved ifapplicable) and team. All are in agreement with plan. Aliza Martino MSN-Ed, RN ACM pilates instructor Office of Care Management Pager #[phone] * Plan of Care - Favian Mckeon [...] Lana Chaudhary RN - 05/21/2023 4:46 PM [facility] referral OFFICE OF CARE MANAGEMENT [...] Type: *No Product type* / Secondary Insurance: [employer] [facility] [place] Last Physical Therapy Recommendation: (Home with assist from Brother; Friend arriving Tues) with walker, front wheeled Last Occupational Therapy Recommendation: swing bed rehabilitation facility, alf facility (vs home with support for IADLs) with walker, front wheeled, shower chair Plan for discharge is: Home w/ Services Outpatient Agency/Support Group Needs: Homecare agency Home Health Services: Physical Therapy, Occupational Therapy Agency Referrals: I have met with the patient to: discuss discharge planning needs. describing our affiliations within the [facility] and educate about their right to choose where referrals are sent. provide a list of Home Health Agencies / Durable Medical Equipment vendors which serve their preferred geographic area. They have requested referrals to: [facility] [address] [place] [address] [facility] [place], [place] Note routed to a Unstacker who will communicate referrals to facilities and provide any required information. Transportation: family or friend will provide *Brother Raymond on Tuesday 05/22 at 1000 Barriers to discharge: Does not have home / assist available until tomorrow Tuesday 05/22 Plan going forward: Discharge home into the 22/02 home care of brother Raymond with [facility] and [facility] PT/OT services on Tuesday 05/22 [...] Attending: All Staff: Staff Role Juanita Almaguer Side Piece Coverer Laure Ricks PA Physician Milieu Therapist Magdalena Rodriguez RN Radiology Nurse Consuelo Espinoza biopsychologist Nurse Post-operative diagnosis/Indication: Right pleural effusion Name [...] *No Product type* / Secondary Insurance: [facility] [place] Last Physical Therapy Recommendation: alf facility, swing bed rehabilitation facility with to [...] Office of Care Management letter from the Audio Visual Tech pertaining to rehab referrals. provide a letter describing our affiliations within the [facility] and educate about their right to choose where referrals are sent. provide the [facility] Star Quality Rating handout. review the different levels of rehab including SNF, swing, and acute. provide a list of facilities within their preferred geographic area. request that they provide at least three choices for referral. They have requested referrals to: [facility] [address] [place] [address] [facility] ([facility]) [address] [place] [address] (Accepts pts only after exhausting all other local SNF options) [facility] (Swing) ([facility]) [address] [place] [address] PHONE: [phone] FAX: [phone] [facility] (Swing) [facility]) [address] [place] [address] PHONE: [phone] FAX: [phone] Note routed to a Unstacker who will communicate referrals to facilities and [...] from the original note were not included. [facility] NEPHROLOGY/HYPERTENSION CONSULT NOTE PATIENT: Purnima Thacker [...] in her course. She ultimately underwent a musiy-go-dwfth procedure on and tolerated it well (see operative details). [facility] on some pressors support.. [...] 1423 05/12/23 1105 PHART 7.39 7.37 7.34* TDD0NPG 33* 36 42 PO2ART 101 102 73* AFF0XLU 19.5* 20.4 22.1 LACTATEVEN 1.5 1.8 2.8* FXG1KBR 40 40 40 PFRATIOART2 252 255 182 VBG (Venous Blood Gas) Recent Labs 05/12/23 1557 05/12/23 1423 05/12/23 1105 LACTATEVEN 1.5 1.8 2.8* Mixed Venous Sat Recent Labs 05/12/23 1425 05/12/23 0508 05/12/23 0321 [id number] 59.9 30.7 32.7 LFT's: Recent Labs 05/14/23 0110 05/13/23 0115 05/12/23 0600 BILITOT 0.4 0.5 0.9 BILIDIR -- 0.3 -- ALBUMIN 3.6 3.0* 3.5 ALKPHOS 86 85 100 ALT 437* 903* 1,174* AST 319* 792* 1,435* No results found for: UPROTCREAT No results found for: TPROTEINPEP, ALBELECT No results found for: MICROALBUR, [id number] No results found for: HA1C Lab Results Component Value Date CALCIUM 8.5 05/14/2023 PHOS 4.7 (H) 05/08/2023 No results found for: 25OHVITD MICROBIOLOGY: ProcedureComponentValueUnitsDate/TimeUrine culture [[id number]]Collected: 05/11/231921Lab Status: Final resultSpecimen: Clean Catch UrineUpdated: [...] consulted for assessment if this patient needs AGRICULTURAL COMMODITIES INSPECTOR. Atthis time, we can likely hold off on AGRICULTURAL COMMODITIES INSPECTOR. Her volume status appears sufficient and her metabolic kanwal angements with mild acidosis is not too profound. Patient does not have significant uremic symptoms. We can hold off for today, but the patient is a high risk candidate for needing AGRICULTURAL COMMODITIES INSPECTOR in future daysespecially if her Cr curve trends the direction it is for the next several days. S/p Qrfpf-fk-Iyivm TF TAVR: Management per cardiology. On milrinone gtt. PLAN: - Please obtain following diagnostics: renal US, urinalysis, urine prot/Cr ratio, urine albumin/Cr ratio, CK, uric acid, serum osmol, daily VBGs - No acute indications for AGRICULTURAL COMMODITIES INSPECTOR/dialysis. We will keep close eye on Cr trend, volume status, and metabolics to ensure patient still does not need AGRICULTURAL COMMODITIES INSPECTOR as she ensues intrinsic renal recovery - [...] M.H.Katherine., M.A. PGY-V Nephrology-Hypertension Fellow Page # [phone] [facility] [address] 2nd floor, Jewel Sawyer [address] [place] [address] * Care Management - Mario Alberto Olmos [...] *No Product type* / Secondary Insurance: [facility] Plan for discharge is: Home w/o Services [...] for a TAVR at 730. Returned to [facility] at 0945. Was intubated in the laboratory associate due to agitation. Maintained bedrest for 5 [...] Operative Note Patient Name: Purnima Thacker : [id number] MR#: [id number] Case Date: 05/12/2023 Surgeon: Surgeon(s) and Role: [...] procedure Note: Patient Name: Purnima Thacker : [id number] MR#: [id number] Case Date: 05/12/2023 Operators Surgeon: Surgeon(s) and [...] main with 4.0 x 30 mm Resolute [place] Drug Eluting Stent Perclose x1 + Angio-seal 8 Fr x1, RFA Manual pressure, LFA Manual pressure, LFV Endotracheal intubation (performed by cardiac anesthesia) Preliminary findings: Successful right transfemoral TAVR Rzqto-vv-Qkgih with a 23 mm Lai 3 THV. [...] MD, M.Sc. Structural Heart Disease Fellow Pager :[phone] Antelmo Sharma MD Pager [phone] * Op Note - Alirio Hudson MD - 05/12/2023 7:37 AM EDT Preop Diagnosis: Severe aortic stenosis, symptomatic. Postop Diagnosis: Same. Procedure: Transfemoral TAVR procedure with 23mm valve. Surgeon: Alirio Hudson M.D. Journeyman Electrician Pv Installer: Danny CULP Procedure: The patient was taken to the laboratory associate. The patient had monitored anesthesia care. 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 [place] [address] [address] STRUCTURAL HEART DISEASE CONSULTATION NOTE PRIMARY CARE [...] who had been referred for possible TAVR hrekh-oj-slwdp evaluation. Her primary symptoms are of dyspnea [...] [facility]. 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 PROBLEM LIST: Patient Active Problem List Diagnosis Symptomatic severe aortic stenosis with low ejection fraction Mild coronary artery disease by [facility] 11/09/2022 Heart failure with [...] send to lab ([facility] Result Value Ref [...] leads Confirmed by MD Harshil, Enrique Bell ([id number]) on 05/10/2023 8:11:46 AM Assessment and Plan: [...] alert Dr. Hudson of her inpatient status, [place] primary cardiac surgeon. Based on recent clinic [...] Antelmo Sharma MD Structural Heart Disease Pager [phone] * Plan of Care - Sarahi Nice RN - 05/10/2023 3:55 AM EDTSumavis: RN Note and Care Plan Sarahi Nice RN assumed care of pt at time of their arrival to room 362 from [facility]. Pt voices shortness of breath at time [...] VTE (Venous Thromboembolism) Risk Flowsheets (Taken 05/09/2023 4986) VTE Prevention/Management: anticoagulant therapy Intervention: Prevent Infection [...] listening utilized Taken 05/08/20231999 by Alivia Kauffman resolution agent/Support System Care: self-care encouraged support provided Problem: [...] Transfer from another hospital Location: admitted from [facility] Reason for Hospitalization: Critical aortic stenosis, [...] receiving care in [place] must abide by [place] law. The hierarchy [...] (i) The agent with financial power of divorce attorney or a conservator appointed in accordance [...] Address confirmed as: [address] [place] [address] Social & Family Supports: All names listed [...] *No Product type* / Secondary Insurance: [facility] ONLY if patient has Medicare A&B - Does this patient have secondary insurance?: Yes ; Prescription Coverage: Yes Preferred Pharmacy: updated to [facility] in [facility] Status: Patient is a : No Primary Care Provider confirmed: Magdalena Acosta MD [phone] Patient/Caregiver Goals of Treatment: Potential Needs for [...] transition of care planning. Alie Bradshaw RN, Pager-[phone] * Plan of Care - Emily Lucero RN - 05/08/2023 2:54 PM EDT OUTCOME EVALUATION NOTE: OUTCOME SUMMARY: Pt arrived from [facility]. A&O, no c/o pain or SOB. [...] 9:00 AM EDT Laboratory Appointment Lab at [facility] Hematology Oncology [address] [place] [address] 05/12/2024 10:00 AM EDT Office Visit [place] [address] Markel Borjas MD [address] HEMATOLOGY [place] [address] 03/01/2025 4:15 PM EDT Office Visit Dermatology at [place] [address] [place] [address] Marek Bonilla MD [address], [address] [address] Scheduled Referrals Name Type Priority Associated Diagnoses [...] Heart Cath W/Inj L Ventriculography, Img S&I ([id number]) 05/12/2023 7:37 AM EDT Aortic valve stenosis, [...] EST Narrative 07/08/2023 12:26 PM EST [address] [place] [address] ? Echocardiogram Report Name: PURNIMA THACKER ?Study Date: 07/08/2023 10:31 AMBP: 118/60 mmHg ? Patient Location: 4A : 1955 ? Height: 155 cm ? Account: [id number] Age: 67 yrs ? Weight: 74 kg Gender: Female ?BSA: 1.7 m2 Ordering Physician: ALIRIO HUDSON Referring Physician: VINOD JUÁREZ Performed By: Felicia Norris RDCS Reason For Study: S/P TAVR Exam Location: [facility]. Interpretation Summary Left ventricular systolic [...] no significant change (post-procedure). Procedure Limited - 28858. Doppler - 71318. Color Doppler - 33013. Satisfactory quality. This study is limited because [...] Note Lee Kincaid MD - 07/08/2023 [address] [place] [address] Echocardiogram Report Name: PURNIMA THACKER Study Date: 0:31 AMBP: 118/60 mmHg Patient Location: 4A : 1955 Height: 155 cm Account: [id number] Age: 67 yrs Weight: 74 kg Gender: Female BSA: 1.7 m2 Ordering Physician: ALIRIO HUDSON Referring Physician: VINOD JUÁREZ Performed By: Felicia Norris RDCS Reason For Study: S/P TAVR Exam Location: [facility]. Interpretation Summary Left ventricular systolic [...] is nosignificant change (post-procedure). Procedure Limited - 03057. Doppler - 23237. Color Doppler - 43460. Satisfactoryquality. This study is limited because of [...] EST) Glucose 93 65 - 199 mg/dL [facility] Comment:Diabetes: >=200 mg/d L plus symptoms Blood Urea Nitrogen 19(H) 8 - 18 mg/dL [facility] Creatinine 0.81 0.70 - 1.20 mg/dL [facility] Sodium 142 135 - 145 mmol/L [facility] Potassium 3.8 3.5 - 5.0 mmol/L [facility] Comment: Please note: ??Patients with WBC >100,000 may have falsely elevated Potassium levels. ??For accurate Potassium quantification in these patients send serum separator tube (gold top) for subsequent determinations. ??Contact the Clinical Chemistry Laboratory if there are any questions. Chloride 104 98 - 107 mmol/L [facility] Carbon Dioxide 26 22 - 31 mmol/L [facility] Anion Gap 12 5 - 15 mmol/L [facility] Calcium 10.2 8.5 - 10.5 mg/dL [facility] Protein, Total 7.4 6.1 - 8.0 g/dL [facility] Albumin 4.1 3.2 - 5.2 g/dL [facility] Aspartate Aminotransferase 24 0 - 30 unit/L [facility] Alanine Aminotransferase 12 0 - 30 unit/L [facility] Alkaline Phosphatase 93 35 - 105 unit/L [facility] Bilirubin, Total 0.3 0.2 - 1.3 mg/dL [facility] Est Glomerular Filtration Rate 80 >=60 mL/min/1. 73 m?? [facility] Comment: This patient's estimated [...] Lab Alirio Hudson MD CHEMISTRY ORDERABLE S [facility] [place] [address] * (ABNORMAL) Basic Metabolic Panel (non-fasting) (05/22/2023 3:57 AM EDT) Glucose 88 65 - 199 mg/dL [facility] Comment:Diabetes: >=200 mg/d L plus symptoms Blood Urea Nitrogen 21(H) 8 - 18 mg/dL [facility] Creatinine 0.69(L) 0.70 - 1.20 mg/dL [facility] Sodium 136 135 - 145 mmol/L [facility] Potassium 3.6 3.5 - 5.0 mmol/L [facility] Comment: Please note: ??Patients with WBC >100,000 may have falsely elevated Potassium levels. ??For accurate Potassium quantification in these patients send serum separator tube (gold top) for subsequent determinations. ??Contact the Clinical Chemistry Laboratory if there are any questions. Chloride 102 98 - 107 mmol/L [facility] Carbon Dioxide 23 22 - 31 mmol/L [facility] Anion Gap 11 5 - 15 mmol/L [facility] Calcium 8.6 8.5 - 10.5 mg/dL [facility] Est Glomerular Filtration Rate 95 >=60 mL/min/1. 73 m?? [facility] Comment: This patient's estimated [...] Agency Comment Spec In Lab Mara Maggie TELECOMMUNICATIONS SWITCH TECHNICIAN CHEMISTRY ORDERABL ES [facility] [place] [address] * (ABNORMAL) Basic Metabolic Panel (non-fasting) (05/21/2023 5:06 AM EDT) Glucose 87 65 - 199 mg/dL [facility] Comment:Diabetes: >=200 mg/d L plus symptoms Blood Urea Nitrogen 25(H) 8 - 18 mg/dL [facility] Creatinine 0.84 0.70 - 1.20 mg/dL [facility] Sodium 136 135 - 145 mmol/L [facility] Potassium 3.6 3.5 - 5.0 mmol/L [facility] Comment: Please note: ??Patients with WBC >100,000 may have falsely elevated Potassium levels. ??For accurate Potassium quantification in these patients send serum separator tube (gold top) for subsequent determinations. ??Contact the Clinical Chemistry Laboratory if there are any questions. Chloride 102 98 - 107 mmol/L [facility] Carbon Dioxide 26 22 - 31 mmol/L [facility] Anion Gap 8 5 - 15 mmol/L [facility] Calcium 8.9 8.5 - 10.5 mg/dL [facility] Est Glomerular Filtration Rate 76 >=60 mL/min/1. 73 m?? [facility] Comment: This patient's estimated [...] Comment Spec In Lab [facility] TELECOMMUNICATIONS SWITCH TECHNICIAN CHEMISTRY ORDERABL ES Performing Organization Address City/[facility]/ZIP Co de Phone Number [facility] [place] [address] * Lavender Tube HOLD (05/20/2023 2:52 AM EDT) Lavender Hold Sample in lab. [facility] Blood Venous Draw / Unknown 05/20/2023 2:52 AM EDT 05/20/2023 3:04 AM EDT [facility] TELECOMMUNICATIONS SWITCH TECHNICIAN HEMATOLOGY ORDERAB LES Performing Organization Address City/[facility]/ZIP Co de Phone Number [facility] [place] [address] * (ABNORMAL) Basic Metabolic Panel (non-fasting) (05/20/2023 2:52 AM EDT) Glucose 152 65 - 199 mg/dL [facility] Comment:Diabetes: >=200 mg/d L plus symptoms Blood Urea Nitrogen 33(H) 8 - 18 mg/dL [facility] Creatinine 0.82 0.70 - 1.20 mg/dL [facility] Sodium 137 135 - 145 mmol/L [facility] Potassium 3.7 3.5 - 5.0 mmol/L [facility] Comment: Please note: ??Patients with WBC >100,000 may have falsely elevated Potassium levels. ??For accurate Potassium quantification in these patients send serum separator tube (gold top) for subsequent determinations. ??Contact the Clinical Chemistry Laboratory if there are any questions. Chloride 99 98 - 107 mmol/L [facility] Carbon Dioxide 22 22 - 31 mmol/L [facility] Anion Gap 16(H) 5 - 15 mmol/L [facility] Calcium 9.0 8.5 - 10.5 mg/dL [facility] Est Glomerular Filtration Rate 78 >=60 mL/min/1. 73 m?? [facility] Comment: This patient's estimated [...] Lab Mara Serrano APRN CHEMISTRY ORDERABL ES [facility] [place] [address] * (ABNORMAL) Potassium (05/20/2023 2:52 AM EDT) Potassium 3.4(L) 3.5 - 5.0 mmol/L [facility] Comment: Please note: ??Patients with WBC >100,000 may have falsely elevated Potassium levels. ??For accurate Potassium quantification in these patients send serum separator tube (gold top) for subsequent determinations. ??Contact the Clinical Chemistry Laboratory if there are any questions. Blood 05/20/2023 2:52 AM EDT 05/20/2023 3:03 AM EDT Narrative Resulting Agency Comment Spec In Lab Mara Serrano TELECOMMUNICATIONS SWITCH TECHNICIAN CHEMISTRY ORDERABL ES [facility] [place] [address] * XR Chest PA & Lateral (Generic) [...] center worker that requested your imaging first. Electronically signed by: Chyna Johnson MD, [facility]([phone]), at 05/19/2023 2:19 PM Alirio Hudson MD IMG DX ORDERABLES * (ABNORMAL) Basic Metabolic Panel (non-fasting) (05/19/2023 5:49 AM EDT) Glucose 93 65 - 199 mg/dL [facility] Comment:Diabetes: >=200 mg/d L plus symptoms Blood Urea Nitrogen 45(H) 8 - 18 mg/dL [facility] Creatinine 1.02 0.70 - 1.20 mg/dL [facility] Sodium 138 135 - 145 mmol/L [facility] Potassium 3.9 3.5 - 5.0 mmol/L [facility] Comment: Please note: ??Patients with WBC >100,000 may have falsely elevated Potassium levels. ??For accurate Potassium quantification in these patients send serum separator tube (gold top) for subsequent determinations. ??Contact the Clinical Chemistry Laboratory if there are any questions. Chloride 102 98 - 107 mmol/L [facility] Carbon Dioxide 26 22 - 31 mmol/L [facility] Anion Gap 10 5 - 15 mmol/L [facility] Calcium 9.7 8.5 - 10.5 mg/dL [facility] Est Glomerular Filtration Rate 60 >=60 mL/min/1. 73 m?? [facility] Comment: This patient's estimated [...] Agency Comment Spec In Lab Mara Serrano TELECOMMUNICATIONS SWITCH TECHNICIAN CHEMISTRY ORDERABL ES Performing Organization Address City/State/[facility] Co de Phone Number [facility] [place] [address] * IR Chest Tube Placement Right (05/18/2023 [...] Metabolic Panel (non-fasting) (05/18/2023 2:54 AM EDT) [facility] Glucose 95 65 - 199 mg/dL [facility] Comment:Diabetes: >=200 mg/d L plus symptoms Blood Urea Nitrogen 71(H) 8 - 18 mg/dL [facility] Comment:result rechecked-[facility] Creatinine 1.64(H) 0.70 - 1.20 mg/dL [facility] Comment:result rechecked-[facility] Sodium 137 135 - 145 mmol/L [facility] Potassium 3.7 3.5 - 5.0 mmol/L [facility] Comment: Please note: ??Patients with WBC >100,000 may have falsely elevated Potassium levels. ??For accurate Potassium quantification in these patients send serum separator tube (gold top) for subsequent determinations. ??Contact the Clinical Chemistry Laboratory if there are any questions. Chloride 100 98 - 107 mmol/L [facility] Carbon Dioxide 24 22 - 31 mmol/L [facility] Anion Gap 13 5 - 15 mmol/L [facility] Calcium 9.7 8.5 - 10.5 mg/dL [facility] Est Glomerular Filtration Rate [...] Agency Comment Spec In Lab Mara Maggie TELECOMMUNICATIONS SWITCH TECHNICIAN CHEMISTRY ORDERABL ES [facility] [place] [address] * XR Chest PA & Lateral (Generic) [...] ? Electronically signed by: Ghassan Reyes MD, [facility] ??([phone]), at 05/17/2023 11:46 AM Narrative 05/17/2023 11:46 [...] center worker that requested your imaging first. Electronically signed by: Ghassan Reyes MD, [facility]([phone]), at 05/17/2023 11:46 AM Alirio Hudson MD IMG DX ORDERABLES * (ABNORMAL) Comprehensive metabolic panel (non-fasting) (05/17/2023 4:35 AM EDT) Glucose 89 65 - 199 mg/dL [facility] Comment:Diabetes: >=200 mg/d L plus symptoms Blood Urea Nitrogen 97(H) 8 - 18 mg/dL [facility] Creatinine 2.97(H) 0.70 - 1.20 mg/dL [facility] Comment:result rechecked-JSJ Sodium 135 135 - 145 mmol/L [facility] Potassium 4.1 3.5 - 5.0 mmol/L [facility] Comment: Please note: ??Patients with WBC >100,000 may have falsely elevated Potassium levels. ??For accurate Potassium quantification in these patients send serum separator tube (gold top) for subsequent determinations. ??Contact the Clinical Chemistry Laboratory if there are any questions. Chloride 97(L) 98 - 107 mmol/L [facility] Carbon Dioxide 22 22 - 31 mmol/L [facility] Anion Gap 16(H) 5 - 15 mmol/L [facility] Calcium 9.6 8.5 - 10.5 mg/dL [facility] Protein, Total 6.5 6.1 - 8.0 g/dL [facility] Albumin 3.7 3.2 - 5.2 g/dL [facility] Aspartate Aminotransferase 58(H) 0 - 30 unit/L [facility] Alanine Aminotransferase 66(H) 0 - 30 unit/L [facility] Alkaline Phosphatase 86 35 - 105 unit/L [facility] Bilirubin, Total 0.6 0.2 - 1.3 mg/dL [facility] Est Glomerular Filtration Rate 17(L) >=60 mL/min/1. 73 m?? [facility] Comment: This patient's estimated [...] MD CHEMISTRY ORDERABLE S Performing Organization Address [facility] Co de Phone Number [facility] [place] [address] * Potassium (05/16/2023 11:15 PM EDT) Potassium 3.7 3.5 - 5.0 mmol/L [facility] Comment: Please note: ??Patients [...] MD CHEMISTRY ORDERABLE S Performing Organization Address [facility] Co de Phone Number [facility] [place] [address] * Magnesium (05/16/2023 5:22 PM EDT) Magnesium 0.96 0.69 - 1.07 mmol/L [facility] Blood 05/16/2023 5:22 PM EDT 05/16/2023 5:27 PM EDT Narrative Resulting Agency Comment Spec In Lab Alirio Hudson MD CHEMISTRY ORDERABLE S Performing Organization Address [facility] Co de Phone Number [facility] [place] [address] * (ABNORMAL) Basic Metabolic Panel (non-fasting) (05/16/2023 5:22 PM EDT) Glucose 106 65 - 199 mg/dL [facility] Comment:Diabetes: >=200 mg/d L plus symptoms Blood Urea Nitrogen 103(H) 8 - 18 mg/dL [facility] Creatinine 3.91(H) 0.70 - 1.20 mg/dL [facility] Comment:result rechecked-imm Sodium 132(L) 135 - 145 mmol/L [facility] Potassium 3.6 3.5 - 5.0 mmol/L [facility] Comment: Please note: ??Patients with WBC >100,000 may have falsely elevated Potassium levels. ??For accurate Potassium quantification in these patients send serum separator tube (gold top) for subsequent determinations. ??Contact the Clinical Chemistry Laboratory if there are any questions. Chloride 92(L) 98 - 107 mmol/L [facility] Carbon Dioxide 22 22 - 31 mmol/L [facility] Anion Gap 18(H) 5 - 15 mmol/L [facility] Calcium 9.7 8.5 - 10.5 mg/dL [facility] Est Glomerular Filtration Rate 12(L) >=60 mL/min/1. 73 m?? [facility] Comment: This patient's estimated [...] Lab Alirio Hudson MD CHEMISTRY ORDERABLE S [facility] [place] [address] * (ABNORMAL) Potassium (05/16/2023 11:43 AM EDT) Potassium 3.3(L) 3.5 - 5.0 mmol/L [facility] Comment: Please note: ??Patients [...] MD CHEMISTRY ORDERABLE S Performing Organization Address City/[facility]/ZIP Co de Phone Number [facility] [place] [address] * (ABNORMAL) Ferritin (05/16/2023 4:41 AM EDT) Ferritin 1,813(H) 30 - 400 ng/mL [facility] Comment: Pediatric reference ranges not verified at [facility], interpret with caution. Reference ranges for females greater than 50 years of age approach values for men, i.e., 30-400 ng/mL. Blood 05/16/2023 4:41 AM EDT 05/16/2023 4:54 AM EDT Narrative Resulting Agency Comment Spec In Lab Kristopher Ayoub MD CHEMISTRY ORDERABLES Performing Organization Address City/[facility]/ZIP Co de Phone Number [facility] [place] [address] * (ABNORMAL) PTH (05/16/2023 4:41 AM EDT) Pathologist [facility] Parathyroid Hormone 120(H) 15 - 65 pg/mL [facility] Blood 05/16/2023 4:41 AM EDT 05/16/2023 4:54 AM EDT Narrative Resulting Agency Comment Spec In Lab Kristopher Ayoub MD CHEMISTRY ORDERABLES [facility] [place] [address] * Vitamin D, 25-Hydroxy (05/16/2023 4:41 AM EDT) Pathologist [facility] Vitamin D Total 25 OH 33 21 - 100 ng/mL [facility] Vit D Interp Sufficient [facility] Blood 05/16/2023 4:41 AM EDT 05/16/2023 4:54 AM EDT Narrative Resulting Agency Comment Spec In Lab Kristopher Ayoub MD CHEMISTRY ORDERABLES [facility] [place] [address] * (ABNORMAL) Blood Gas Venous ([facility]) (05/16/2023 4:22 AM EDT) pH, Venous 7.41 7.32 - 7.42 [facility] PCO2, Venous 32(L) 41 - 51 mmHg [facility] PO2, Venous 73(H) 25 - 40 mmHg [facility] Bicarbonate, Venous 19.6 mmol/L [facility] Base Excess, Venous -5.1 mmol/L [facility] Hgb Blood Gas 9.7(L) 11.7 - 15.5 g/dL [facility] Oxyhemoglobin, Venous 92.8 % [facility] Carboxyhemoglob in, Venous 0.1 % [facility] Comment: Nonsmokers: 0.5-1.5% COHB Smokers: Variable, but usually less than 10% Toxic: 20-30% COHB Lethal: Greater than 60% COHB Methemoglobin, Venous 0.3 <=1.5 % [facility] Na Whole Blood 130(L) 135 - 145 mmol/L [facility] K Whole Blood 3.7 3.5 - 5.0 mmol/L [facility] Comment: Please note: Patients with WBC >100,000 may have falsely elevated Potassium levels. Contact the Clinical Chemistry Laboratory if there are any questions. ICa Whole Blood 1.15 1.15 - 1.33 mmol/L [facility] Comment: Note: ??Total bilirubin higher than 20 mg/dL may lead to falsely low ionized calcium. CL Whole Blood 95(L) 98 - 107 mmol/L [facility] Gluc Whole Bld 82 65 - 199 mg/dL [facility] Comment:Diabetes: >=200 mg/d L plus symptoms Lactate WB 1.1 0.5 - 2.2 mmol/L [facility] Blood Gas Source Venous [facility] Blood Venous Draw / Unknown 05/16/2023 4:22 AM EDT 05/16/2023 4:31 AM EDT Narrative Resulting Agency Comment Spec In Lab Bonita [place] [address] * (ABNORMAL) Differential, Automated (05/16/2023 4:20 AM EDT) Neutrophil % 84.1 % [facility] Neutrophil Absolute 6.22(H) 1.70 - 6.10 x10(3)/mc L [facility] Lymph % 5.8 % [facility] Lymphocytes Abs 0.4(L) 0.9 - 3.2 x10(3)/mc L [facility] Monocyte % 8.8 % [facility] Monocyte Abs 0.6 0.3 - 0.9 x10(3)/mc L [facility] Eos % 0.4 % [facility] Eosinophils Abs 0.0 0.0 - 0.4 x10(3)/mc L [facility] Basophil % 0.0 % [facility] Baso Absolute 0.0 0.0 - 0.1 x10(3)/mc L [facility] Immature Gran % 0.90 % [facility] Comment: Immature granulocytes(IG's)percentage and absolute count will include metamyelocytes, myelocytes, and promyelocytes. Blood smears from CBCs yielding IG's will be scanned manually for concordance. If this scan disagrees with the automated IG or if promyelocytes are noted, a manual differential will be performed. Immature Gran Absolute 0.07(H) 0.00 - 0.04 x10(3)/mc L [facility] Blood 05/16/2023 4:20 AM EDT 05/16/2023 4:29 AM EDT Narrative Resulting Agency Comment Spec In Lab James Agustin MD HEMATOLOGY ORDER JODIE Performing Organization Address City/[facility]/[place] [address] * (ABNORMAL) Hemogram (05/16/2023 4:20 AM EDT) White Blood Cell 7.4 4.0 - 9.5 x10(3)/mc L [facility] Red Blood Cell 2.40(L) 4.00 - 5.21 x10(6)/mc L [facility] Hemoglobin 7.8(L) 11.7 - 15.5 g/dL [facility] Hematocrit 22.5(L) 35.7 - 45.8 % [facility] Mean Cell Volume 93.8 82.6 - 94.4 fL [facility] Mean Cell Hemoglobin 32.5(H) 27.1 - 32.0 pg [facility] Mean Cell Hemoglobin Concentration 34.7 31.7 - 35.0 g/dL [facility] Platelet 120(L) 145 - 357 x10(3)/mc L [facility] RDW Standard Deviation 42.9 37.0 - 46.0 fL [facility] RDW coefficient of variation 12.9 11.5 - 14.1 % [facility] Mean Platelet Volume 11.3 7.6 - 12.9 fL [facility] NRBC% auto 0.7 % [facility] NRBC Absolute 0.050(H) 0.000 - 0.000 x10(3)/mc L [facility] Blood 05/16/2023 4:20 AM EDT 05/16/2023 4:29 AM EDT Narrative Resulting Agency Comment Spec In Lab James Agustin MD HEMATOLOGY ORDER JODIE [facility] [place] [address] * (ABNORMAL) Basic Metabolic Panel (non-fasting) (05/16/2023 4:20 AM EDT) Glucose 89 65 - 199 mg/dL [facility] Comment:Diabetes: >=200 mg/d L plus symptoms Blood Urea Nitrogen 108(H) 8 - 18 mg/dL [facility] Creatinine 4.74(H) 0.70 - 1.20 mg/dL [facility] Comment:result rechecked-[facility] Sodium 132(L) 135 - 145 mmol/L [facility] Potassium 3.9 3.5 - 5.0 mmol/L [facility] Comment: Please note: ??Patients with WBC >100,000 may have falsely elevated Potassium levels. ??For accurate Potassium quantification in these patients send serum separator tube (gold top) for subsequent determinations. ??Contact the Clinical Chemistry Laboratory if there are any questions. Chloride 95(L) 98 - 107 mmol/L [facility] Carbon Dioxide 18(L) 22 - 31 mmol/L [facility] Anion Gap 19(H) 5 - 15 mmol/L [facility] Calcium 9.2 8.5 - 10.5 mg/dL [facility] Est Glomerular Filtration Rate 10(L) >=60 mL/min/1. 73 m?? [facility] Comment: This patient's estimated [...] Lab Alirio Hudson MD CHEMISTRY ORDERABLE S [facility] [place] [address] * (ABNORMAL) Iron and TIBC (05/16/2023 4:20 AM EDT) Iron 31 30 - 150 mcg/dL [facility] TIBC 259 250 - 450 mcg/dL [facility] Iron Saturation 12(L) 20 - 50 % [facility] Blood 05/16/2023 4:20 AM EDT 05/16/2023 4:29 AM EDT Narrative Resulting Agency Comment Spec In Lab Kristopher Ayoub MD CHEMISTRY ORDERABLES [facility] [place] [address] * (ABNORMAL) Basic Metabolic Panel (non-fasting) (05/15/2023 12:50 AM EDT) Glucose 101 65 - 199 mg/dL [facility] Comment:Diabetes: >=200 mg/d L plus symptoms Blood Urea Nitrogen 109(H) 8 - 18 mg/dL [facility] Creatinine 5.62(H) 0.70 - 1.20 mg/dL [facility] Comment:result rechecked-KS Sodium 131(L) 135 - 145 mmol/L [facility] Comment:result rechecked-KS Potassium 3.7 3.5 - 5.0 mmol/L [facility] Comment: result rechecked-KS Please note: ??Patients with WBC >100,000 may have falsely elevated Potassium levels. ??For accurate Potassium quantification in these patients send serum separator tube (gold top) for subsequent determinations. ??Contact the Clinical Chemistry Laboratory if there are any questions. Chloride 92(L) 98 - 107 mmol/L [facility] Comment:result rechecked-[place] Carbon Dioxide 18(L) 22 - 31 mmol/L [facility] Comment:result rechecked-[place] Anion Gap 21(H) 5 - 15 mmol/L [facility] Calcium 8.9 8.5 - 10.5 mg/dL [facility] Est Glomerular Filtration Rate 8(L) >=60 mL/min/1. 73 m?? [facility] Comment: This patient's estimated [...] MD CHEMISTRY ORDERABLE S Performing Organization Address City/[facility]/ZIP Co de Phone Number [facility] [place] [address] * (ABNORMAL) Hemogram (05/15/2023 12:50 AM EDT) White Blood Cell 9.1 4.0 - 9.5 x10(3)/mc L [facility] Red Blood Cell 2.19(L) 4.00 - 5.21 x10(6)/mc L [facility] Hemoglobin 7.2(L) 11.7 - 15.5 g/dL [facility] Hematocrit 20.6(L) 35.7 - 45.8 % [facility] Mean Cell Volume 94.1 82.6 - 94.4 fL [facility] Mean Cell Hemoglobin 32.9(H) 27.1 - 32.0 pg [facility] Mean Cell Hemoglobin Concentration 35.0 31.7 - 35.0 g/dL [facility] Platelet 109(L) 145 - 357 x10(3)/mc L [facility] RDW Standard Deviation 43.6 37.0 - 46.0 fL [facility] RDW coefficient of variation 12.9 11.5 - 14.1 % [facility] Mean Platelet Volume 10.4 7.6 - 12.9 fL [facility] NRBC% auto 2.1 % [facility] NRBC Absolute 0.190(H) 0.000 - 0.000 x10(3)/mc L [facility] Blood 05/15/2023 12:5 0 AM EDT 05/15/2023 12:52 AM EDT Narrative Resulting Agency Comment Spec In Lab Alirio Hudson MD HEMATOLOGY ORDERABL ES Performing Organization Address [facility] Co de Phone Number [facility] [place] [address] * (ABNORMAL) BLOOD GAS 2 VENOUS (05/15/2023 12:49 AM EDT) pH, Venous 7.33 7.32 - 7.42 [facility] PCO2, Venous 37(L) 41 - 51 mmHg [facility] PO2, Venous 34 25 - 40 mmHg [facility] Bicarbonate, Venous 19.1 mmol/L [facility] Base Excess, Venous -6.8 mmol/L [facility] Hgb Blood Gas 10.8(L) 11.7 - 15.5 g/dL [facility] Oxyhemoglobin, Venous 58.1 % [facility] Carboxyhemoglob in, Venous 0.3 % [facility] Comment: Nonsmokers: 0.5-1.5% COHB Smokers: Variable, but usually less than 10% Toxic: 20-30% COHB Lethal: Greater than 60% COHB Methemoglobin, Venous 0.6 <=1.5 % [facility] Na Whole Blood 136 135 - 145 mmol/L [facility] K Whole Blood 3.7 3.5 - 5.0 mmol/L [facility] Comment: Please note: Patients with WBC >100,000 may have falsely elevated Potassium levels. Contact the Clinical Chemistry Laboratory if there are any questions. ICa Whole Blood 1.12(L) 1.15 - 1.33 mmol/L [facility] Comment: Note: ??Total bilirubin higher than 20 mg/dL may lead to falsely low ionized calcium. CL Whole Blood 95(L) 98 - 107 mmol/L [facility] Gluc Whole Bld 101 65 - 199 mg/dL [facility] Comment:Diabetes: >=200 mg/d L plus symptoms Lactate WB 1.3 0.5 - 2.2 mmol/L [facility] Flow, Mike 1.0 LPM [facility] Blood Gas Source Venous [facility] Blood 05/15/2023 12:4 9 AM EDT 05/15/2023 12:49 AM EDT Alirio Hudson MD POINT OF CARE TEST ORDERABLES [facility] [place] [place] [address] * US Retroperitoneal Complete (05/14/2023 3:53 PM [...] PM Electronically signed by: Hayden Robledo MD, [facility] ([phone]), at 05/14/2023 4:32 PM Thank you for [...] 04:39 pm) PATIENT INFO: ID #: ? [id number] ?: ??55 (67 yrs)(F) Name: ? PURNIMA THACKER ?Visit Date: 05/14/2023 03:44 pm PERFORMED BY: Attending: ?Meena CULP, Hayden Stafford Resident: ? Nell CULP, Anand August Performed By: ? Consuelo Tello RDMS Referred By: ?ALIRIO HUDSON Location: ? [place] SERVICE(S) PROVIDED: URETRO - Retroperitoneal Complete - [id number] ? [id number] INDICATIONS: EVANS COMPARISON: CT: Abdomen/Pelvis 05/11/23 RIGHT [...] 05/14/2023 04:39 pm) PATIENT INFO: ID #: [id number] : 55 (67 yrs)(F) Name: PURNIMA THACKER Visit Date: 05/14/2023 03:44 pm PERFORMED BY: Attending: Hayden Robledo MD Resident: Anand Camejo MD Performed By: Consuelo Tello RDMS Referred By: ALIRIO HUDSON Location: [place] SERVICE(S) PROVIDED: URETRO - Retroperitoneal Complete - [id number] INDICATIONS: EVANS COMPARISON: CT: Abdomen/Pelvis 05/11/23 RIGHT [...] PM Electronically signed by: Hayden Robledo MD, [facility] ([phone]), at 05/14/2023 4:32 PM Thank you for letting us participate in the care of this patient. If you are a health care provider and have any questions regarding this report, please contact the number above. For patients who have questions, please contact the health child day care center worker that requested your imaging first. Hayden Robledo, Staff Physician Electronically Signed Final Report 05/14/2023 04:39 pm Alirio Hudson MD IMG US GEN ORDERABL ES * CK (05/14/2023 3:17 PM EDT) Creatine Kinase 123 0 - 160 unit/L [facility] Blood 05/14/2023 3:17 PM EDT 05/14/2023 3:31 PM EDT Narrative Resulting Agency Comment Spec In Lab Alirio Hudson MD CHEMISTRY ORDERABLE S Performing Organization Address [facility] [place] [place] [address] * (ABNORMAL) Uric acid (05/14/2023 3:17 PM EDT) Uric Acid 14.9(H) 2.5 - 6.5 mg/dL [facility] Blood 05/14/2023 3:17 PM EDT 05/14/2023 3:31 PM EDT Narrative Resulting Agency Comment Spec In Lab Alirio Hudson MD CHEMISTRY ORDERABLE S Performing Organization Address [facility] [place] [place] [address] * (ABNORMAL) Osmolality (05/14/2023 3:17 PM EDT) Osmolality 311(H) 275 - 295 mOsm/kg [facility] Blood 05/14/2023 3:17 PM EDT 05/14/2023 3:31 PM EDT Narrative Resulting Agency Comment Spec In Lab Alirio Hudson MD [place] [address] * (ABNORMAL) Differential, Automated (05/14/2023 1:10 AM EDT) Neutrophil % 87.2 % [facility] Neutrophil Absolute 9.74(H) 1.70 - 6.10 x10(3)/mc L [facility] Lymph % 3.9 % [facility] Lymphocytes Abs 0.4(L) 0.9 - 3.2 x10(3)/mc L [facility] Monocyte % 7.9 % [facility] Monocyte Abs 0.9 0.3 - 0.9 x10(3)/mc L [facility] Eos % 0.0 % [facility] Eosinophils Abs 0.0 0.0 - 0.4 x10(3)/mc L [facility] Basophil % 0.1 % [facility] Baso Absolute 0.0 0.0 - 0.1 x10(3)/mc L [facility] Immature Gran % 0.90 % [facility] Comment: Immature granulocytes(IG's)percentage and absolute count will include metamyelocytes, myelocytes, and promyelocytes. Blood smears from CBCs yielding IG's will be scanned manually for concordance. If this scan disagrees with the automated IG or if promyelocytes are noted, a manual differential will be performed. Immature Gran Absolute 0.10(H) 0.00 - 0.04 x10(3)/mc L [facility] Blood 05/14/2023 1:10 AM EDT 05/14/2023 1:24 AM EDT Narrative Resulting Agency Comment Spec In Lab Bonita TOBAR HEMATOLOGY ORDERABLE S [facility] [place] [address] * (ABNORMAL) Hemogram (05/14/2023 1:10 AM EDT) White Blood Cell 11.2(H) 4.0 - 9.5 x10(3)/mc L [facility] Red Blood Cell 2.19(L) 4.00 - 5.21 x10(6)/mc L [facility] Hemoglobin 7.2(L) 11.7 - 15.5 g/dL [facility] Hematocrit 20.3(L) 35.7 - 45.8 % [facility] Mean Cell Volume 92.7 82.6 - 94.4 fL [facility] Mean Cell Hemoglobin 32.9(H) 27.1 - 32.0 pg [facility] Mean Cell Hemoglobin Concentration 35.5(H) 31.7 - 35.0 g/dL [facility] Platelet 112(L) 145 - 357 x10(3)/mc L [facility] RDW Standard Deviation 41.4 37.0 - 46.0 fL [facility] RDW coefficient of variation 12.5 11.5 - 14.1 % [facility] Mean Platelet Volume 10.4 7.6 - 12.9 fL [facility] NRBC% auto 1.5 % [facility] NRBC Absolute 0.170(H) 0.000 - 0.000 x10(3)/mc L [facility] Blood 05/14/2023 1:10 AM EDT 05/14/2023 1:24 AM EDT Narrative Resulting Agency Comment Spec In Lab Bonita TOBAR HEMATOLOGY ORDERABLE S [facility] [place] [address] * (ABNORMAL) Comprehensive metabolic panel (non-fasting) (05/14/2023 1:10 AM EDT) Glucose 120 65 - 199 mg/dL [facility] Comment:Diabetes: >=200 mg/d L plus symptoms Blood Urea Nitrogen 98(H) 8 - 18 mg/dL [facility] Creatinine 4.80(H) 0.70 - 1.20 mg/dL [facility] Comment:result rechecked-ssc Sodium 132(L) 135 - 145 mmol/L [facility] Potassium 4.1 3.5 - 5.0 mmol/L [facility] Comment: Please note: ??Patients with WBC >100,000 may have falsely elevated Potassium levels. ??For accurate Potassium quantification in these patients send serum separator tube (gold top) for subsequent determinations. ??Contact the Clinical Chemistry Laboratory if there are any questions. Chloride 94(L) 98 - 107 mmol/L [facility] Carbon Dioxide 18(L) 22 - 31 mmol/L [facility] Anion Gap 20(H) 5 - 15 mmol/L [facility] Calcium 8.5 8.5 - 10.5 mg/dL [facility] Protein, Total 5.8(L) 6.1 - 8.0 g/dL [facility] Albumin 3.6 3.2 - 5.2 g/dL [facility] Aspartate Aminotransferase 319(H) 0 - 30 unit/L [facility] Alanine Aminotransferase 437(H) 0 - 30 unit/L [facility] Alkaline Phosphatase 86 35 - 105 unit/L [facility] Bilirubin, Total 0.4 0.2 - 1.3 mg/dL [facility] Est Glomerular Filtration Rate 9(L) >=60 mL/min/1. 73 m?? [facility] Comment: This patient's estimated [...] MD CHEMISTRY ORDERABLE S Performing Organization Address [facility] Co de Phone Number [facility] [place] [address] * APTT (05/13/2023 10:15 AM EDT) Partial Thromboplastin Time 27 25 - 37 sec [facility] Comment: The PTT is NOT appropriate for heparin monitoring. Use the Anti-Xa level for heparin monitoring (HEP UFH) or LMWH monitoring (HEP LMW). A PTT less than 37 seconds generally indicates adequate hemostasis. Blood 05/13/2023 10:1 5 AM EDT 05/13/2023 10:46 AM EDT Narrative Resulting Agency Comment Spec In Lab Alirio Hudson MD HEMATOLOGY ORDERABL ES Performing Organization Address [facility] Co de Phone Number [facility] [place] [address] * (ABNORMAL) Prothrombin Time (05/13/2023 10:15 AM EDT) Prothrombin Time 14.6(H) 9.4 - 12.5 sec [facility] International Normalization Ratio 1.3 [facility] Comment: An INR <2.0 [...] MD HEMATOLOGY ORDERABL ES Performing Organization Address [facility] Co de Phone Number [facility] [place] [address] * EKG 12 Lead (05/13/2023 9:22 AM [...] interpretation Confirmed by fellow MD Anitha, Carissa ([id number]) on 05/13/2023 3:25:30 PM Confirmed by Maxx Best ([id number]) on 05/13/2023 8:30:56 PM MUSE SYSTEM 05/13/2023 9:22 AM EDT 05/13/2023 8:30 PM EDT Alriio Hudson MD ECG ORDERABLES MUSE SYSTEM * (ABNORMAL) Differential, Automated (05/13/2023 1:15 AM EDT) [facility] Neutrophil % 88.1 % [facility] Neutrophil Absolute 7.62(H) 1.70 - 6.10 x10(3)/mc L [facility] Lymph % 3.1 % [facility] Lymphocytes Abs 0.3(L) 0.9 - 3.2 x10(3)/mc L [facility] Monocyte % 7.9 % [facility] Monocyte Abs 0.7 0.3 - 0.9 x10(3)/mc L [facility] Eos % 0.0 % [facility] Eosinophils Abs 0.0 0.0 - 0.4 x10(3)/mc L [facility] Basophil % 0.1 % [facility] Baso Absolute 0.0 0.0 - 0.1 x10(3)/mc L [facility] Immature Gran % 0.80 % [facility] Comment: Immature granulocytes(IG's)percentage and absolute count will include metamyelocytes, myelocytes, and promyelocytes. Blood smears from CBCs yielding IG's will be scanned manually for concordance. If this scan disagrees with the automated IG or if promyelocytes are noted, a manual differential will be performed. Immature Gran Absolute 0.07(H) 0.00 - 0.04 x10(3)/ L [facility] Blood 05/13/2023 1:15 AM EDT 05/13/2023 1:29 AM EDT Narrative Resulting Agency Comment Spec In Lab Lorri TOBAR HEMATOLOGY ORDERABLE S [facility] [place] [address] * (ABNORMAL) Hemogram (05/13/2023 1:15 AM EDT) White Blood Cell 8.6 4.0 - 9.5 x10(3)/[facility] Red Blood Cell 2.37(L) 4.00 - 5.21 x10(6)/[facility] Hemoglobin 7.8(L) 11.7 - 15.5 g/dL [facility] Hematocrit 22.2(L) 35.7 - 45.8 % [facility] Mean Cell Volume 93.7 82.6 - 94.4 fL [facility] Mean Cell Hemoglobin 32.9(H) 27.1 - 32.0 pg [facility] Mean Cell Hemoglobin Concentration 35.1(H) 31.7 - 35.0 g/dL [facility] Platelet 130(L) 145 - 357 x10(3)/[facility] RDW Standard Deviation 41.7 37.0 - 46.0 fL [facility] RDW coefficient of variation 12.5 11.5 - 14.1 % [facility] Mean Platelet Volume 10.2 7.6 - 12.9 fL [facility] NRBC% auto 0.5 % [facility] NRBC Absolute 0.040(H) 0.000 - 0.000 x10(3)/ L [facility] Blood 05/13/2023 1:15 AM EDT 05/13/2023 1:29 AM EDT Narrative Resulting Agency Comment Spec In Lab Lorri TOBAR HEMATOLOGY ORDERABLE S Performing Organization Address City/[facility]/ZIP Co de Phone Number [facility] [place] [address] * (ABNORMAL) Hepatic Function Panel (05/13/2023 1:15 AM EDT) Protein, Total 5.5(L) 6.1 - 8.0 g/dL [facility] Albumin 3.0(L) 3.2 - 5.2 g/dL [facility] Aspartate Aminotransferase 792(H) 0 - 30 unit/L [facility] Alanine Aminotransferase 903(H) 0 - 30 unit/L [facility] Alkaline Phosphatase 85 35 - 105 unit/L [facility] Bilirubin, Total 0.5 0.2 - 1.3 mg/dL [facility] Bilirubin, Direct 0.3 0.0 - 0.3 mg/dL [facility] Blood 05/13/2023 1:15 AM EDT 05/13/2023 1:29 AM EDT Narrative Resulting Agency Comment Spec In Lab Alirio Hudson MD CHEMISTRY ORDERABLE S Performing Organization Address [facility] Co de Phone Number [facility] [place] [address] * (ABNORMAL) Basic Metabolic Panel (non-fasting) (05/13/2023 1:15 AM EDT) Glucose 107 65 - 199 mg/dL [facility] Comment:Diabetes: >=200 mg/d L plus symptoms Blood Urea Nitrogen 82(H) 8 - 18 mg/dL [facility] Creatinine 3.15(H) 0.70 - 1.20 mg/dL [facility] Comment:result rechecked-OG Sodium 132(L) 135 - 145 mmol/L [facility] Potassium 3.8 3.5 - 5.0 mmol/L [facility] Comment: Please note: ??Patients with WBC >100,000 may have falsely elevated Potassium levels. ??For accurate Potassium quantification in these patients send serum separator tube (gold top) for subsequent determinations. ??Contact the Clinical Chemistry Laboratory if there are any questions. Chloride 95(L) 98 - 107 mmol/L [facility] Carbon Dioxide 20(L) 22 - 31 mmol/L [facility] Anion Gap 17(H) 5 - 15 mmol/L [facility] Calcium 8.3(L) 8.5 - 10.5 mg/dL [facility] Est Glomerular Filtration Rate 16(L) >=60 mL/min/1. 73 m?? [facility] Comment: This patient's estimated [...] Lab Alirio Hudson MD CHEMISTRY ORDERABLE S [facility] [place] [address] * (ABNORMAL) BLOOD GAS 2 ARTERIAL (05/12/2023 3:57 PM EDT) pH, Arterial 7.39 7.35 - 7.45 [facility] PCO2, Arterial 33(L) 35 - 45 mmHg [facility] PO2, Arterial 101 85 - 104 mmHg [facility] Bicarbonate, Arterial 19.5(L) 20.0 - 26.0 mmol/L [facility] Base Excess, Arterial -5.5(L) -3.0 - 3.0 mmol/L [facility] Hgb Blood Gas 9.8(L) 11.7 - 15.5 g/dL [facility] Oxyhemoglobin, Arterial 95.2 94.0 - 97.0 % [facility] Carboxyhemoglob in, Arterial 0.2 % [facility] Comment: Nonsmokers: 0.5-1.5% COHB Smokers: Variable, but usually less than 10% Toxic: 20-30% COHB Lethal: Greater than 60% COHB Methemoglobin, Arterial 0.8 <=1.5 % [facility] Na Whole Blood 129(L) 135 - 145 mmol/L [facility] K Whole Blood 3.8 3.5 - 5.0 mmol/L [facility] Comment: Please note: Patients with WBC >100,000 may have falsely elevated Potassium levels. Contact the Clinical Chemistry Laboratory if there are any questions. ICa Whole Blood 1.05(L) 1.15 - 1.33 mmol/L [facility] Comment: Note: ??Total bilirubin higher than 20 mg/dL may lead to falsely low ionized calcium. CL Whole Blood 96(L) 98 - 107 mmol/L [facility] Gluc Whole Bld 178 65 - 199 mg/dL [facility] Comment:Diabetes: >=200 mg/d L plus symptoms. Lactate WB 1.5 0.5 - 2.2 mmol/L [facility] FIO2 Art 40 % [facility] PF Ratio Art 252 [facility] Blood 05/12/2023 3:57 PM EDT 05/12/2023 3:57 PM EDT Alirio Hudson MD POINT OF CARE TEST ORDERABLES [facility] [place] [address] * (ABNORMAL) Coox2 (05/12/2023 2:25 PM EDT) pO2, Coox 37 mmHg [facility] Hgb Blood Gas 9.5(L) 11.7 - 15.5 g/dL [facility] Oxyhemoglobin, Coox 59.9 % [facility] Carboxyhemoglo bin, Coox 0.3 % [facility] Comment: Nonsmokers: 0.5-1.5% COHB Smokers: Variable, but usually less than 10% Toxic: 20-30% COHB Lethal: Greater than 60% COHB Methemoglobin, Coox 0.7 <=1.5 % [facility] Source Coox Mixed Venous [facility] Blood 05/12/2023 2:25 PM EDT 05/12/2023 2:25 PM EDT Alirio Hudson MD POINT OF CARE TEST ORDERABLES [facility] [address] [place] [address] * (ABNORMAL) BLOOD GAS 2 ARTERIAL (05/12/2023 2:23 PM EDT) pH, Arterial 7.37 7.35 - 7.45 [facility] PCO2, Arterial 36 35 - 45 mmHg [facility] PO2, Arterial 102 85 - 104 mmHg [facility] Bicarbonate, Arterial 20.4 20.0 - 26.0 mmol/L [facility] Base Excess, Arterial -4.8(L) -3.0 - 3.0 mmol/L [facility] Hgb Blood Gas 12.7 11.7 - 15.5 g/dL [facility] Oxyhemoglobin, Arterial 95.4 94.0 - 97.0 % [facility] Carboxyhemoglob in, Arterial 0.3 % [facility] Comment: Nonsmokers: 0.5-1.5% COHB Smokers: Variable, but usually less than 10% Toxic: 20-30% COHB Lethal: Greater than 60% COHB Methemoglobin, Arterial 0.7 <=1.5 % [facility] Na Whole Blood 129(L) 135 - 145 mmol/L [facility] K Whole Blood 3.7 3.5 - 5.0 mmol/L [facility] Comment: Please note: Patients with WBC >100,000 may have falsely elevated Potassium levels. Contact the Clinical Chemistry Laboratory if there are any questions. ICa Whole Blood 1.05(L) 1.15 - 1.33 mmol/L [facility] Comment: Note: ??Total bilirubin higher than 20 mg/dL may lead to falsely low ionized calcium. CL Whole Blood 95(L) 98 - 107 mmol/L [facility] Gluc Whole Bld 168 65 - 199 mg/dL [facility] Comment:Diabetes: >=200 mg/d L plus symptoms. Lactate WB 1.8 0.5 - 2.2 mmol/L [facility] FIO2 Art 40 % [facility] PF Ratio Art 255 [facility] Blood 05/12/2023 2:23 PM EDT 05/12/2023 2:23 PM EDT Alirio Hduson MD POINT OF CARE TEST ORDERABLES [facility] [place] [address] * (ABNORMAL) Troponin (05/12/2023 2:05 PM EDT) Troponin-T, High Sensitivity 1,022(H) <=14 ng/L [facility] Comment: This patient's troponin [...] can be found in the [facility] Laboratory Test Catalog Troponin - [facility] Laboratory Test Catalog Reference: Fourth [place] Definition of Myocardial Infarction. Journal of the [employer] 2018;72:3914-9627 Blood 05/12/2023 2:05 PM EDT 05/12/2023 2:14 PM EDT Narrative Resulting Agency Comment Spec In Lab Alirio Hudson MD CHEMISTRY ORDERABLE S Performing Organization Address [facility]/ZIP Co de Phone Number [facility] [place] [address] * (ABNORMAL) Hemoglobin (05/12/2023 2:05 PM EDT) Hemoglobin 8.5(L) 11.7 - 15.5 g/dL [facility] Blood 05/12/2023 2:05 PM EDT 05/12/2023 2:14 PM EDT Narrative Resulting Agency Comment Spec In Lab Alirio Hudson MD HEMATOLOGY ORDERABL ES Performing Organization Address [facility] Co de Phone Number [facility] [place] [address] * Potassium (05/12/2023 2:05 PM EDT) Potassium 3.9 3.5 - 5.0 mmol/L [facility] Comment: Please note: ??Patients [...] MD CHEMISTRY ORDERABLE S Performing Organization Address [facility] Co de Phone Number [facility] [place] [address] * (ABNORMAL) BLOOD GAS 2 ARTERIAL (05/12/2023 11:05 AM EDT) pH, Arterial 7.34(L) 7.35 - 7.45 [facility] PCO2, Arterial 42 35 - 45 mmHg [facility] PO2, Arterial 73(L) 85 - 104 mmHg [facility] Bicarbonate, Arterial 22.1 20.0 - 26.0 mmol/L [facility] Base Excess, Arterial -3.6(L) -3.0 - 3.0 mmol/L [facility] Hgb Blood Gas 9.3(L) 11.7 - 15.5 g/dL [facility] Oxyhemoglobin, Arterial 89.3(L) 94.0 - 97.0 % [facility] Carboxyhemoglob in, Arterial 0.2 % [facility] Comment: Nonsmokers: 0.5-1.5% COHB Smokers: Variable, but usually less than 10% Toxic: 20-30% COHB Lethal: Greater than 60% COHB Methemoglobin, Arterial 0.9 <=1.5 % [facility] Na Whole Blood 131(L) 135 - 145 mmol/L [facility] K Whole Blood 3.8 3.5 - 5.0 mmol/L [facility] Comment: Please note: Patients with WBC >100,000 may have falsely elevated Potassium levels. Contact the Clinical Chemistry Laboratory if there are any questions. ICa Whole Blood 1.04(L) 1.15 - 1.33 mmol/L [facility] Comment: Note: ??Total bilirubin higher than 20 mg/dL may lead to falsely low ionized calcium. CL Whole Blood 96(L) 98 - 107 mmol/L [facility] Gluc Whole Bld 152 65 - 199 mg/dL [facility] Comment:Diabetes: >=200 mg/d L plus symptoms. Lactate WB 2.8(H) 0.5 - 2.2 mmol/L [facility] FIO2 Art 40 % [facility] PF Ratio Art 182 [facility] Blood 05/12/2023 11:0 5 AM EDT 05/12/2023 11:05 AM EDT Alirio Hudson MD POINT OF CARE TEST ORDERABLES [facility] [address] * (ABNORMAL) BLOOD GAS 2 ARTERIAL (05/12/2023 10:14 AM EDT) pH, Arterial 7.18(Criti gabrielle) 7.35 - 7.45 [facility] Comment:Noted by electrical and instrument technician. PCO2, Arterial 45 35 - 45 mmHg [facility] PO2, Arterial 186(H) 85 - 104 mmHg [facility] Bicarbonate, Arterial 16.2(L) 20.0 - 26.0 mmol/L [facility] Base Excess, Arterial -12.2(L) -3.0 - 3.0 mmol/L [facility] Hgb Blood Gas 10.0(L) 11.7 - 15.5 g/dL [facility] Oxyhemoglobin, Arterial 97.0 94.0 - 97.0 % [facility] Carboxyhemoglob in, Arterial 0.2 % [facility] Comment: Nonsmokers: 0.5-1.5% COHB Smokers: Variable, but usually less than 10% Toxic: 20-30% COHB Lethal: Greater than 60% COHB Methemoglobin, Arterial 0.9 <=1.5 % [facility] Na Whole Blood 129(L) 135 - 145 mmol/L [facility] K Whole Blood 3.6 3.5 - 5.0 mmol/L [facility] Comment: Please note: Patients with WBC >100,000 may have falsely elevated Potassium levels. Contact the Clinical Chemistry Laboratory if there are any questions. ICa Whole Blood 1.10(L) 1.15 - 1.33 mmol/L [facility] Comment: Note: ??Total bilirubin higher than 20 mg/dL may lead to falsely low ionized calcium. CL Whole Blood 97(L) 98 - 107 mmol/L [facility] Gluc Whole Bld 161 65 - 199 mg/dL [facility] Comment:Diabetes: >=200 mg/d L plus symptoms. Lactate WB 3.3(H) 0.5 - 2.2 mmol/L [facility] FIO2 Art 100 % [facility] PF Ratio Art 186 [facility] Blood 05/12/2023 10:1 4 AM EDT 05/12/2023 10:14 AM EDT Alirio Hudson MD POINT OF CARE TEST ORDERABLES [facility] [place] [address] * EKG 12 Lead (05/12/2023 10:10 AM [...] hypertrophy with repolarization abnormality ( Sokolow-Orozco , Chapin product ) ST & T wave abnormality in Inferolateral leads Abnormal ECG When compared with ECG of 10-MAY-2023 13:16, ST & T wave abnormality is more pronounced in inferolateral leads I personally reviewed the tracing and edited the fellows interpretation Confirmed by fellow MD Anuja, Jim ([id number]) on 05/12/2023 1:04:20 PM Confirmed by MD Mono, Eleni ([id number]) on 05/12/2023 9:28:34 PM MUSE SYSTEM 05/12/2023 [...] resident's interpretation and agree with the findings, Chnya Johnson MD at 05/12/2023 10:08 AM Thank you for letting us participate in the care of this patient. ??If you are a health care provider and have any questions regarding this report, please contact the number below. ??For patients who have questions please contact the health child day care center worker that requested your imaging first. ? Electronically signed by: Chyna Johnson MD, [facility] ??([phone]), at 05/12/2023 10:08 AM Narrative 05/12/2023 10:08 AM EDT EXAMINATION: XR CHEST ONE VIEW CLINICAL HISTORY: Post TAVR TECHNIQUE: 1 view of the chest COMPARISON: Chest radiograph from earlier today FINDINGS: Interval placement of endotracheal tube with tip terminating 2 cm above the shira. Interval placement of enteric tube projecting along the expected course of the esophagus and outside the kilws-jc-hrlo. Interval retraction of right IJ approach pulmonary artery catheter with tip now projecting in the right pulmonary artery. Additional lines and tubes external to the patient project over the thorax. Improved pulmonary vascular congestion/edema. Unchanged small bilateral pleural effusions with associated basilar atelectasis. No pneumothorax. The cardiomediastinal silhouette is unchanged. Aortic valve device present. No acute osseous abnormality. Procedure Note Chyna Johnosn MD - 05/12/2023 EXAMINATION: XR CHEST ONE VIEW CLINICAL HISTORY: Post TAVR TECHNIQUE: 1 view of the chest COMPARISON: Chest radiograph from earlier today FINDINGS: Interval placement of endotracheal tube with tip terminating 2 cm abovethe shira. Interval placement of enteric tube projecting along the expected course ofthe esophagus and outside the gdxkb-xy-azte. Interval retraction of right IJ approach pulmonary [...] center worker that requested your imaging first. Electronically signed by: Chyna Johnson MD, [facility]([phone]), at 05/12/2023 10:08 AM Alirio Hudson MD [...] 1955 ? Height: 154 cm ? Account: [id number] Age: 67 yrs ? Weight: 75 kg Gender: Female ?BSA: 1.7 m2 Ordering Physician: RADHA HOLLINS Referring Physician: RADHA HOLLINS Performed By: Dilma Bee RDCS Reason For Study: Guidance for TAVR procedure Exam Location: [facility]. Interpretation Summary PRE TAVR: There [...] mL/m2. POST TAVR: Normal function of the qaoqu-bc-nlarl prosthesis. See below for hemodynamic parameters. Slight improvement in left and right ventricular systolic function. LVEF now 20-25%. No pericardial effusion. See report for additional findings. Procedure Limited - 96423. Doppler - 71564. Color Doppler - 11557. Left Ventricle Left ventricle is of normal [...] 97.3 cm/sec MV dec time: 0.23 sec GEOVNANA(I,D): 1.4 cm2 Dimensionless index Aov: 0.40 I [...] 307:33 AMBP: 96/63 mmHg Patient Location: [address] : 1955 Height: 154 cm Account: [id number] Age: 67 yrs Weight: 75 kg Gender: Female BSA: 1.7 m2 Ordering Physician: RADHA HOLLINS Referring Physician: RADHA HOLLINS Performed By: Dilma Bee RDCS Reason For Study: Guidance for TAVR procedure Exam Location: [facility]. Interpretation Summary PRE TAVR: There [...] 28mL/m2. POST TAVR: Normal function of the wopxo-fx-euhnl prosthesis. See belowfor hemodynamic parameters. Slight improvement in left and right ventricularsystolic function. LVEF now 20-25%. No pericardial effusion. See report for additional findings. Procedure Limited - 00368. Doppler - 33748. Color Doppler - 62551. Left Ventricle Left ventricle is of normal [...] ? Procedure Date: 05/12/2023 ? A #: [id number] ? Primary Physician: Zachary, Antelmo N ? Case #: [id number] ? File Name: [id number] ? Catheterization Order Number: [id number] ? [facility] ? Final Report [place], [place] ? Patient Name: ? Purnima M. Kirstie ? ID#: ?[id number] ? : ?1955 ? Procedure Date: ? May 12, 2023 ? Case #: ? [id number] ? Room: ? 6 ? Case Physicians: ?Antelmo Sharma M.D. ?Start: ?08:03 ?Alirio Hudson M.D. ?Admission: ??05/08/2023 ?Lynda Mcgowan M.D. ? Discharge: ??05/22/2023 ?Fellow: ? Emad Adair Tejeda ? Referring Physician: ??Mario Alebrto Chin M.D. ? Procedures: ?* Coronary Angiography ?* Left Heart Catheterization ?* Coronary Stent Insertion ?* Transcatheter Aortic Valve Replacement ?* Vascular Closure Device Deployment ?* Temporary Pacemaker Insertion In [employer] Supervisor ?* Endotracheal Intubation By Non-Cath Physician [...] ??A premounted 4.00 x 30 mm [place] (MINNA) was ? deployed with a maximum [...] calculated STS risk score was 30.1%. A qvute-ai-bgrgk ?procedure was performed on the pre-existing bioprosthetic stented ?prosthesis. The priority of the pqnrs-cq-wvday procedure was Elective. ?The procedure was performed [...] Lai 3 Ultra RESILIA 23 mm THV ([id number]) transcatheter ?valve was inserted using standard technique. [...] nor was it given in the ?laboratory associate. ?Recommended anti-platelet/anti-thrombotic regimen: ?Continue aspirin 81 mg [...] regimen. ? Comments: ?Successful right transfemoral TAVR Guyok-of-Spjzo with a 23 mm Lai 3 ?THV. [...] access site angiography, ?temporary pacemaker in laboratory associate, intubation-non cath physician, vascular ?closure device, transthoracic echo ??and TAVR. Dr. Alirio Hudson M.D. ?performed the left heart catheterization, access site angiography, ?temporary pacemaker in laboratory associate, vascular closure device, transthoracic ?echo , TAVR [...] Purnima Thacker Procedure Date: 05/12/2023 A #: [id number] Primary Physician: Antelmo Sharma Case #: [id number] File Name: [id number] Catheterization Order Number: [id number] [facility] FinalReport [place], [place] Patient Name: Purnima Thacker ID#:[id number] :1955 Procedure Date: May 12, 2023 Case #: [id number] Room: 6 Case Physicians: Antelmo Sharma M.D. Start: 08:03 Alirio Hudson M.D. Admission:05/08/2023 Lynda Mcgowan M.D. Discharge:05/22/2023 Fellow: Rebekah Tejeda M.D. Referring Physician: Mario Alberto Chin M.D. Procedures: * Coronary Angiography * Left Heart Catheterization * Coronary Stent Insertion * Transcatheter Aortic Valve Replacement * Vascular Closure Device Deployment * Temporary Pacemaker Insertion In [employer] Supervisor * Endotracheal Intubation By Non-Cath Physician [...] priority for the procedure was Urgent. [facility] Other PCI [...] guide. A premounted 4.00 x 30 mm [place] (MINNA) was deployed with a maximum inflation [...] calculated STS risk score was 30.1%. A bthkx-jh-vtfah procedure was performed on the pre-existing bioprosthetic stented prosthesis. The priority of the kuypn-th-njgwo procedure wasElective. The procedure was performed under Moderate sedation performed byLynda Mcgowan M.D. (see anesthesia report for additional details). Alirio Hudson M.D. participated in the case (see Cardiac Surgery reportfor additional details). The TAVR sheath was a 14 Fr Corona eSheath Introducer and theaccess site was femoral. Rapid ventricular pacing was performed. An Corona Lai 3 Ultra RESILIA 23 mm THV (s/y=[id number])transcatheter valve was inserted using standard technique. The [...] to nor was it given inthe laboratory associate. Recommended anti-platelet/anti-thrombotic regimen: Continue aspirin 81 mg [...] this regimen. Comments: Successful right transfemoral TAVR Izgkc-fs-Iziuz with a 23 mmSapien 3 THV. We [...] access site angiography, temporary pacemaker in laboratory associate, intubation-non cath physician,vascular closure device, transthoracic echo and TAVR. Dr. Alirio Hudson M.D. performed the left heart catheterization, access site angiography, temporary pacemaker in laboratory associate, vascular closure device,transthoracic echo , TAVR and [...] pH, POC 7.20(Crit ical) 7.35 - 7.45 [facility] Comment:Critical value OK C C Lab. pCO2, POC 42 35 - 45 mmHg [facility] pO2, POC 260(H) 85 - 104 mmHg [facility] Base Excess, POC -11.0(L) -3.0 - 3.0 mmol/L [facility] Bicarbonate, POC 16.7(L) 20.0 - 26.0 mmol/L [facility] Sodium, POC 129(L) 135 - 145 mmol/L [facility] POC Potassium 3.8 3.5 - 5.0 mmol/L [facility] Ionized Calcium, POC 1.12(L) 1.15 - 1.33 mmol/L [facility] POC Hematocrit 23.0(L) 34.0 - 45.0 % [facility] POC Calc Hgb 7.8(L) 11.2 - 15.7 g/dL [facility] Comment:The calculation of h emoglobin from hematocrit assumes a normal MCHC. POC Bgas Loc CC Lab [facility] Blood 05/12/2023 8:50 AM EDT 05/13/2023 12:00 PM EDT Alirio Hudson MD CHEMISTRY ORDERABLE S Performing Organization Address City/State/[facility] Co de Phone Number [facility] [place] [address] * (ABNORMAL) Point of Care Blood Gas Historical (05/12/2023 8:10 AM EDT) pH, POC 7.27(Crit ical) 7.35 - 7.45 [facility] Comment:Critical value OK C C Lab. pCO2, POC 37 35 - 45 mmHg [facility] pO2, POC 29(Critic al) 85 - 104 mmHg [facility] Comment:Critical value OK C C Lab. Base Excess, POC -10.0(L) -3.0 - 3.0 mmol/L [facility] Bicarbonate, POC 16.7(L) 20.0 - 26.0 mmol/L [facility] Sodium, POC 123(L) 135 - 145 mmol/L [facility] POC Potassium 4.0 3.5 - 5.0 mmol/L [facility] Ionized Calcium, POC 1.12(L) 1.15 - 1.33 mmol/L [facility] POC Hematocrit 27.0(L) 34.0 - 45.0 % [facility] POC Calc Hgb 9.2(L) 11.2 - 15.7 g/dL [facility] Comment:The calculation of h emoglobin from hematocrit assumes a normal MCHC. POC Bgas Loc CC Lab [facility] Blood 05/12/2023 8:10 AM EDT 05/13/2023 12:00 PM EDT Alirio Hudson MD CHEMISTRY ORDERABLE S Performing Organization Address City/[facility]/ZIP Co de Phone Number [facility] [place] [address] * (ABNORMAL) Lactate, whole blood, send to lab ([facility] (05/12/2023 7:00 AM EDT) Lactate WB 2.4(H) 0.5 - 2.2 mmol/L [facility] Blood 05/12/2023 7:00 AM EDT 05/12/2023 7:09 AM EDT Narrative Resulting Agency Comment Spec In Lab Radha Hollins MD CHEMISTRY ORDERABL ES Performing Organization Address [facility] Co de Phone Number [facility] [place] [address] * (ABNORMAL) Comprehensive metabolic panel (non-fasting) (05/12/2023 6:00 AM EDT) Glucose 167 65 - 199 mg/dL [facility] Comment:Diabetes: >=200 mg/d L plus symptoms Blood Urea Nitrogen 67(H) 8 - 18 mg/dL [facility] Creatinine 2.01(H) 0.70 - 1.20 mg/dL [facility] Sodium 131(L) 135 - 145 mmol/L [facility] Potassium 4.3 3.5 - 5.0 mmol/L [facility] Comment: Please note: ??Patients with WBC >100,000 may have falsely elevated Potassium levels. ??For accurate Potassium quantification in these patients send serum separator tube (gold top) for subsequent determinations. ??Contact the Clinical Chemistry Laboratory if there are any questions. Chloride 97(L) 98 - 107 mmol/L [facility] Carbon Dioxide 14(L) 22 - 31 mmol/L [facility] Anion Gap 20(H) 5 - 15 mmol/L [facility] Calcium 8.6 8.5 - 10.5 mg/dL [facility] Protein, Total 6.3 6.1 - 8.0 g/dL [facility] Albumin 3.5 3.2 - 5.2 g/dL [facility] Aspartate Aminotransferase 1,435(H) 0 - 30 unit/L [facility] Alanine Aminotransferase 1,174(H) 0 - 30 unit/L [facility] Alkaline Phosphatase 100 35 - 105 unit/L [facility] Bilirubin, Total 0.9 0.2 - 1.3 mg/dL [facility] Est Glomerular Filtration Rate 27(L) >=60 mL/min/1. 73 m?? [facility] Comment: This patient's estimated [...] Lab Radha Hollins MD CHEMISTRY ORDERABL ES [facility] [place] [address] * (ABNORMAL) Coox2 (05/12/2023 5:08 AM EDT) pO2, Coox 24 mmHg [facility] Hgb Blood Gas 10.4(L) 11.7 - 15.5 g/dL [facility] Oxyhemoglobin, Coox 30.7 % [facility] Carboxyhemoglo bin, Coox 0.3 % [facility] Comment: Nonsmokers: 0.5-1.5% COHB Smokers: Variable, but usually less than 10% Toxic: 20-30% COHB Lethal: Greater than 60% COHB Methemoglobin, Coox 0.8 <=1.5 % [facility] Source Coox Mixed Venous [facility] Blood 05/12/2023 5:08 AM EDT 05/12/2023 5:08 AM EDT Radha Hollins MD POINT OF CARE TEST ORDERABLES Performing Organization Address City/[facility] Co de Phone Number [facility] [place] [address] * (ABNORMAL) Coox2 (05/12/2023 3:21 AM EDT) pO2, Coox 25 mmHg [facility] Hgb Blood Gas 10.8(L) 11.7 - 15.5 g/dL [facility] Oxyhemoglobin, Coox 32.7 % [facility] Carboxyhemoglo bin, Coox 0.3 % [facility] Comment: Nonsmokers: 0.5-1.5% COHB Smokers: Variable, but usually less than 10% Toxic: 20-30% COHB Lethal: Greater than 60% COHB Methemoglobin, Coox 0.7 <=1.5 % [facility] Source Coox Mixed Venous [facility] Blood 05/12/2023 3:21 AM EDT 05/12/2023 3:21 AM EDT Radha Hollins MD POINT OF CARE TEST ORDERABLES Performing Organization Address City/State/[facility] Co de Phone Number [facility] [place] [address] * (ABNORMAL) BLOOD GAS 2 ARTERIAL (05/12/2023 3:18 AM EDT) pH, Arterial 7.34(L) 7.35 - 7.45 [facility] PCO2, Arterial 30(L) 35 - 45 mmHg [facility] PO2, Arterial 72(L) 85 - 104 mmHg [facility] Bicarbonate, Arterial 16.0(L) 20.0 - 26.0 mmol/L [facility] Base Excess, Arterial -9.8(L) -3.0 - 3.0 mmol/L [facility] Hgb Blood Gas 11.0(L) 11.7 - 15.5 g/dL [facility] Oxyhemoglobin, Arterial 89.8(L) 94.0 - 97.0 % [facility] Carboxyhemoglob in, Arterial 0.3 % [facility] Comment: Nonsmokers: 0.5-1.5% COHB Smokers: Variable, but usually less than 10% Toxic: 20-30% COHB Lethal: Greater than 60% COHB Methemoglobin, Arterial 0.7 <=1.5 % [facility] Na Whole Blood 131(L) 135 - 145 mmol/L [facility] K Whole Blood 4.2 3.5 - 5.0 mmol/L [facility] Comment: Please note: Patients with WBC >100,000 may have falsely elevated Potassium levels. Contact the Clinical Chemistry Laboratory if there are any questions. ICa Whole Blood 1.12(L) 1.15 - 1.33 mmol/L [facility] Comment: Note: ??Total bilirubin higher than 20 mg/dL may lead to falsely low ionized calcium. CL Whole Blood 100 98 - 107 mmol/L [facility] Gluc Whole Bld 160 65 - 199 mg/dL [facility] Comment:Diabetes: >=200 mg/d L plus symptoms. Lactate WB 2.7(H) 0.5 - 2.2 mmol/L [facility] Flow Art 5.0 LPM [facility] Blood 05/12/2023 3:18 AM EDT 05/12/2023 3:18 AM EDT Radha Hollins MD POINT OF CARE TEST ORDERABLES [facility] [place] [address] * (ABNORMAL) Coox2 (05/12/2023 1:14 AM EDT) pO2, Coox 28 mmHg [facility] Hgb Blood Gas 10.9(L) 11.7 - 15.5 g/dL [facility] Oxyhemoglobin, Coox 37.3 % [facility] Carboxyhemoglo bin, Coox 0.3 % [facility] Comment: Nonsmokers: 0.5-1.5% COHB Smokers: Variable, but usually less than 10% Toxic: 20-30% COHB Lethal: Greater than 60% COHB Methemoglobin, Coox 0.5 <=1.5 % [facility] Source Coox Mixed Venous [facility] Blood 05/12/2023 1:14 AM EDT 05/12/2023 1:14 AM EDT Radha Hollins MD POINT OF CARE TEST ORDERABLES [facility] [place] [address] * (ABNORMAL) BLOOD GAS 2 ARTERIAL (05/12/2023 1:06 AM EDT) pH, Arterial 7.34(L) 7.35 - 7.45 [facility] PCO2, Arterial 30(L) 35 - 45 mmHg [facility] PO2, Arterial 81(L) 85 - 104 mmHg [facility] Bicarbonate, Arterial 15.7(L) 20.0 - 26.0 mmol/L [facility] Base Excess, Arterial -10.1(L) -3.0 - 3.0 mmol/L [facility] Hgb Blood Gas 11.0(L) 11.7 - 15.5 g/dL [facility] Oxyhemoglobin, Arterial 92.3(L) 94.0 - 97.0 % [facility] Carboxyhemoglob in, Arterial 0.2 % [facility] Comment: Nonsmokers: 0.5-1.5% COHB Smokers: Variable, but usually less than 10% Toxic: 20-30% COHB Lethal: Greater than 60% COHB Methemoglobin, Arterial 0.6 <=1.5 % [facility] Na Whole Blood 131(L) 135 - 145 mmol/L [facility] K Whole Blood 4.2 3.5 - 5.0 mmol/L [facility] Comment: Please note: Patients with WBC >100,000 may have falsely elevated Potassium levels. Contact the Clinical Chemistry Laboratory if there are any questions. ICa Whole Blood 1.13(L) 1.15 - 1.33 mmol/L [facility] Comment: Note: ??Total bilirubin higher than 20 mg/dL may lead to falsely low ionized calcium. CL Whole Blood 99 98 - 107 mmol/L [facility] Gluc Whole Bld 132 65 - 199 mg/dL [facility] Comment:Diabetes: >=200 mg/d L plus symptoms. Lactate WB 2.7(H) 0.5 - 2.2 mmol/L [facility] Flow Art 5.0 LPM [facility] Blood 05/12/2023 1:06 AM EDT 05/12/2023 1:06 AM EDT Radha Hollins MD POINT OF CARE TEST ORDERABLES Performing Organization Address City/State/[facility] Co de Phone Number [facility] [place] [address] * (ABNORMAL) Differential, Automated (05/12/2023 1:05 AM EDT) Neutrophil % 83.3 % [facility] Neutrophil Absolute 7.49(H) 1.70 - 6.10 x10(3)/mc L [facility] Lymph % 7.1 % [facility] Lymphocytes Abs 0.6(L) 0.9 - 3.2 x10(3)/mc L [facility] Monocyte % 8.9 % [facility] Monocyte Abs 0.8 0.3 - 0.9 x10(3)/mc L [facility] Eos % 0.0 % [facility] Eosinophils Abs 0.0 0.0 - 0.4 x10(3)/mc L [facility] Basophil % 0.1 % [facility] Baso Absolute 0.0 0.0 - 0.1 x10(3)/mc L [facility] Immature Gran % 0.60 % [facility] Comment: Immature granulocytes(IG's)percentage and absolute count will include metamyelocytes, myelocytes, and promyelocytes. Blood smears from CBCs yielding IG's will be scanned manually for concordance. If this scan disagrees with the automated IG or if promyelocytes are noted, a manual differential will be performed. Immature Gran Absolute 0.05(H) 0.00 - 0.04 x10(3)/mc L [facility] Blood 05/12/2023 1:05 AM EDT 05/12/2023 1:15 AM EDT Narrative Resulting Agency Comment Spec In Lab Gianni Fletcher MD HEMATOLOGY ORDERABLE S [facility] [place] [address] * (ABNORMAL) Hemogram (05/12/2023 1:05 AM EDT) White Blood Cell 9.0 4.0 - 9.5 x10(3)/mc L [facility] Red Blood Cell 3.01(L) 4.00 - 5.21 x10(6)/mc L [facility] Hemoglobin 9.8(L) 11.7 - 15.5 g/dL [facility] Hematocrit 28.7(L) 35.7 - 45.8 % [facility] Mean Cell Volume 95.3(H) 82.6 - 94.4 fL [facility] Mean Cell Hemoglobin 32.6(H) 27.1 - 32.0 pg [facility] Mean Cell Hemoglobin Concentration 34.1 31.7 - 35.0 g/dL [facility] Platelet 186 145 - 357 x10(3)/mc L [facility] RDW Standard Deviation 43.7 37.0 - 46.0 fL [facility] RDW coefficient of variation 12.7 11.5 - 14.1 % [facility] Mean Platelet Volume 10.3 7.6 - 12.9 fL [facility] NRBC% auto 0.0 % [facility] NRBC Absolute 0.000 0.000 - 0.000 x10(3)/mc L [facility] Blood 05/12/2023 1:05 AM EDT 05/12/2023 1:15 AM EDT Narrative Resulting Agency Comment Spec In Lab Gianni Fletcher MD HEMATOLOGY ORDERABLE S [facility] [address] [facility] [place] [address] * (ABNORMAL) Comprehensive metabolic panel (non-fasting) (05/12/2023 1:05 AM EDT) Glucose 141 65 - 199 mg/dL [facility] Comment:Diabetes: >=200 mg/d L plus symptoms Blood Urea Nitrogen 63(H) 8 - 18 mg/dL [facility] Creatinine 1.86(H) 0.70 - 1.20 mg/dL [facility] Sodium 131(L) 135 - 145 mmol/L [facility] Potassium 4.4 3.5 - 5.0 mmol/L [facility] Comment: Please note: ??Patients with WBC >100,000 may have falsely elevated Potassium levels. ??For accurate Potassium quantification in these patients send serum separator tube (gold top) for subsequent determinations. ??Contact the Clinical Chemistry Laboratory if there are any questions. Chloride 96(L) 98 - 107 mmol/L [facility] Carbon Dioxide 14(L) 22 - 31 mmol/L [facility] Anion Gap 21(H) 5 - 15 mmol/L [facility] Calcium 9.0 8.5 - 10.5 mg/dL [facility] Protein, Total 6.6 6.1 - 8.0 g/dL [facility] Albumin 3.9 3.2 - 5.2 g/dL [facility] Aspartate Aminotransferase 1,227(H) 0 - 30 unit/L [facility] Alanine Aminotransferase 1,097(H) 0 - 30 unit/L [facility] Alkaline Phosphatase 108(H) 35 - 105 unit/L [facility] Bilirubin, Total 1.0 0.2 - 1.3 mg/dL [facility] Est Glomerular Filtration Rate 29(L) >=60 mL/min/1. 73 m?? [facility] Comment: This patient's estimated [...] Lab Radha Hollins MD CHEMISTRY ORDERABL ES [facility] [place] [address] * XR Chest One View (05/12/2023 1:00 [...] ? Electronically signed by: Will Rowe MD, [facility] ([phone]), at 05/12/2023 3:16 AM Narrative 05/12/2023 3:16 [...] center worker that requested your imaging first. Electronically signed by: Will Rowe MD, [facility]([phone]), at 05/12/2023 3:16 AM Radha Hollins MD IMG DX ORDERABLES * (ABNORMAL) Coox2 (05/12/2023 12:30 AM EDT) pO2, Coox 22 mmHg [facility] Hgb Blood Gas 10.9(L) 11.7 - 15.5 g/dL [facility] Oxyhemoglobin, Coox 25.1 % [facility] [facility] Carboxyhemoglo bin, Coox 0.3 % [facility] Comment: Nonsmokers: 0.5-1.5% COHB Smokers: Variable, but usually less than 10% Toxic: 20-30% COHB Lethal: Greater than 60% COHB Methemoglobin, Coox 1.4 <=1.5 % [facility] Source Coox Mixed Venous [facility] Blood 05/12/2023 12:3 0 AM EDT 05/12/2023 12:30 AM EDT Radha Hollins MD POINT OF CARE TEST ORDERABLES [facility] [place] [address] * XR Chest One View (05/11/2023 11:45 [...] ? Electronically signed by: Will Rowe MD, [facility] ([phone]), at 05/11/2023 11:57 PM Narrative 05/11/2023 11:57 [...] center worker that requested your imaging first. Electronically signed by: Will Rowe MD, [facility]([phone]), at 05/11/2023 11:57 PM Radha Hollins MD IMG DX ORDERABLES * (ABNORMAL) Lactate, whole blood, send to lab ([facility] (05/11/2023 7:40 PM EDT) Lactate WB 4.8(Critic al) 0.5 - 2.2 mmol/L [facility] Comment:Called by: IMM, Read back by: Magdalena Baires, Date/Time:05/11/23 19:54. Blood 05/11/2023 7:40 PM EDT 05/11/2023 7:49 PM EDT Narrative Resulting Agency Comment Spec In Lab Radha Hollins MD CHEMISTRY ORDERABL ES Performing Organization Address City/[facility]/ZIP Co de Phone Number [facility] [place] [address] * Urine culture (05/11/2023 7:22 PM EDT) Pathologist [facility] Urine Culture 50,000-99,000 cfu/ml Normal mucosal herman Susceptibilit y testing not routinely performed for Coagulase Negative Staphylococcu s species and other Gram Positive organisms from urine. [facility] Clean Catch Urine 05/11/2023 7:22 PM EDT 05/11/2023 8:50 PM EDT Narrative Resulting Agency Comment Spec In Lab Brody Kaplan APRN MICROBIOLOGY - GENE RAL ORDERABLES Performing Organization Address [facility]/ZIP Co de Phone Number [facility] [place] [address] * (ABNORMAL) Urinalysis Microscopic Exam (05/11/2023 7:22 PM EDT) RBC, Urine 2 0 - 4 /HPF [facility] WBC, Urine >100(H) 0 - 5 /HPF [facility] Bacteria, Urine Occasional (A) None /HPF [facility] Squamous Epithelial Cells Raw Data, Urine 5(H) <=4 /HPF [facility] Hyaline Casts, Urine 3(H) 0 - 2 /LPF [facility] Clean Catch Urine 05/11/2023 7:22 PM EDT 05/11/2023 7:31 PM EDT Narrative Resulting Agency Comment Spec In Lab Brody Kaplan TELECOMMUNICATIONS SWITCH TECHNICIAN URINE ORDERABLES [facility] [place] [address] * (ABNORMAL) Urinalysis with reflex Culture (05/11/2023 7:22 PM EDT) Glucose, Urine Dipstick Negative Negative mg/dL [facility] Protein, Urine Dipstick Trace(A) Negative mg/dL [facility] Bilirubin, Urine Dipstick Negative Negative mg/dL [facility] Comment: Clinical correlation required for positive Urine Bilirubin results as false positive may occur with some drugs and drug related products. If a false positive is suspected a serum total bilirubin should be considered if clinically indicated. Urobilinogen, Urine Dipstick Normal Normal mg/dL [facility] pH, Urn (dipstick) 5.0 5.0 - 8.0 [facility] Blood, Urine Dipstick Trace(A) Negative mg/dL [facility] Ketone, Urine Dipstick Negative Negative mg/dL [facility] Nitrite, Urine Dipstick Negative Negative [facility] Leukocytes, Urine Dipstick Moderate(A) Negative mcL [facility] Appearance, Urine Dipstick Cloudy(A) Clear [facility] Specific [place] Urine Automated >=1.030(A) 1.005 - 1.030 [facility] Color, Urine Dipstick Yellow Yellow [facility] Reflex to Culture Yes [facility] Clean Catch Urine 05/11/2023 7:22 PM EDT 05/11/2023 7:31 PM EDT Narrative Resulting Agency Comment Spec In Lab Brody Kaplan TELECOMMUNICATIONS SWITCH TECHNICIAN URINE ORDERABLES [facility] [place] [address] * (ABNORMAL) pro-Brain Natriuretic Peptide (05/11/2023 7:11 PM EDT) NT-proBNP >35,000(H) <=124 pg/mL [facility] Blood 05/11/2023 7:11 PM EDT 05/11/2023 7:26 PM EDT Narrative Resulting Agency Comment Spec In Lab Radha Hollins MD CHEMISTRY ORDERABL ES Performing Organization Address City/[facility]/ZIP Co de Phone Number [facility] [place] [address] * (ABNORMAL) Lactate, whole blood, send to lab ([facility] (05/11/2023 2:47 PM EDT) Lactate WB 2.9(H) 0.5 - 2.2 mmol/L [facility] Blood 05/11/2023 2:47 PM EDT 05/11/2023 2:53 PM EDT Narrative Resulting Agency Comment Spec In Lab Juan Luis Gonzalez MD CHEMISTRY ORDERABLES Performing Organization Address [facility] Co de Phone Number [facility] [place] [address] * (ABNORMAL) CT Angiogram Abdomen & Pelvis [...] ? Electronically signed by: Cullen Narayanan MD, [facility] ([phone]), at 05/11/2023 4:37 PM Narrative 05/11/2023 4:37 [...] 610 mm2 Circumference: 88 mm Calcification: Mild [id number] height: Left: 6.2 mm Right: 5.8 mm THORACIC AORTA Description: Normal course and caliber. ??Mild diffuse atherosclerotic changes. No acute aortopathy noted. Asphalt Roller Operator dimensions: Aortic root: 27.6 mm Max [...] 610 mm2 Circumference: 88 mm Calcification: Mild [id number]-mf-[id number] height: Left: 6.2 mm Right: 5.8 mm THORACIC AORTA Description: Normal course and caliber. Mild diffuse atheroscleroticchanges. No acute aortopathy noted. Asphalt Roller Operator dimensions: Aortic root: 27.6 mm Max [...] center worker that requested your imaging first. Electronically signed by: Cullen Narayanan MD, [facility]([phone]), at 05/11/2023 4:37 PM Antelmo Sharma MD IM CT ORDERABLES * (ABNORMAL) Lactate, whole blood, send to lab ([facility] (05/11/2023 9:29 AM EDT) [facility] Lactate WB 3.1(H) 0.5 - 2.2 mmol/L [facility] Blood 05/11/2023 9:29 AM EDT 05/11/2023 9:38 AM EDT Narrative Resulting Agency Comment Spec In Lab Juan Luis Gonzalez MD CHEMISTRY ORDERABLES [facility] [place] [address] * (ABNORMAL) Differential, Automated (05/11/2023 4:42 AM EDT) [facility] Neutrophil % 78.1 % [facility] Neutrophil Absolute 5.46 1.70 - 6.10 x10(3)/mc L [facility] Lymph % 10.6 % [facility] Lymphocytes Abs 0.7(L) 0.9 - 3.2 x10(3)/mc L [facility] Monocyte % 9.6 % [facility] Monocyte Abs 0.7 0.3 - 0.9 x10(3)/mc L [facility] Eos % 0.0 % [facility] Eosinophils Abs 0.0 0.0 - 0.4 x10(3)/mc L [facility] Basophil % 0.4 % [facility] Baso Absolute 0.0 0.0 - 0.1 x10(3)/mc L [facility] Immature Gran % 1.30 % [facility] Comment: Immature granulocytes(IG's)percentage and absolute count will include metamyelocytes, myelocytes, and promyelocytes. Blood smears from CBCs yielding IG's will be scanned manually for concordance. If this scan disagrees with the automated IG or if promyelocytes are noted, a manual differential will be performed. Immature Gran Absolute 0.09(H) 0.00 - 0.04 x10(3)/ L [facility] Blood 05/11/2023 4:42 AM EDT 05/11/2023 4:49 AM EDT Narrative Resulting Agency Comment Spec In Lab Klaudia Reid MD HEMATOLOGY OR DERABLES Performing Organization Address City/State/[facility] Co de Phone Number [facility] [place] [address] * (ABNORMAL) Hemogram (05/11/2023 4:42 AM EDT) White Blood Cell 7.0 4.0 - 9.5 x10(3)/mc L [facility] Red Blood Cell 3.44(L) 4.00 - 5.21 x10(6)/ L [facility] Hemoglobin 11.1(L) 11.7 - 15.5 g/dL [facility] Hematocrit 32.7(L) 35.7 - 45.8 % [facility] Mean Cell Volume 95.1(H) 82.6 - 94.4 fL [facility] Mean Cell Hemoglobin 32.3(H) 27.1 - 32.0 pg [facility] Mean Cell Hemoglobin Concentration 33.9 31.7 - 35.0 g/dL [facility] Platelet 165 145 - 357 x10(3)/ L [facility] RDW Standard Deviation 43.1 37.0 - 46.0 fL [facility] RDW coefficient of variation 12.7 11.5 - 14.1 % [facility] Mean Platelet Volume 10.1 7.6 - 12.9 fL [facility] NRBC% auto 0.0 % [facility] NRBC Absolute 0.000 0.000 - 0.000 x10(3)/mc L [facility] Blood 05/11/2023 4:42 AM EDT 05/11/2023 4:49 AM EDT Narrative Resulting Agency Comment Spec In Lab Klaudia Reid MD HEMATOLOGY OR DERABLES Performing Organization Address [facility] Co de Phone Number [facility] [place] [address] * Heparin (unfractionated) Level (05/11/2023 4:42 AM EDT) UF Heparin 0.46 IU/mL [facility] Comment: Heparin (anti-Xa) levels [...] ORDERAB LES Performing Organization Address [facility] Co de Phone Number [facility] [place] [address] * (ABNORMAL) Comprehensive metabolic panel (non-fasting) (05/11/2023 4:42 AM EDT) Glucose 143 65 - 199 mg/dL [facility] Comment:Diabetes: >=200 mg/d L plus symptoms Blood Urea Nitrogen 42(H) 8 - 18 mg/dL [facility] Creatinine 1.24(H) 0.70 - 1.20 mg/dL [facility] Sodium 134(L) 135 - 145 mmol/L [facility] Potassium 4.6 3.5 - 5.0 mmol/L [facility] Comment: Please note: ??Patients with WBC >100,000 may have falsely elevated Potassium levels. ??For accurate Potassium quantification in these patients send serum separator tube (gold top) for subsequent determinations. ??Contact the Clinical Chemistry Laboratory if there are any questions. Chloride 99 98 - 107 mmol/L [facility] Carbon Dioxide 14(L) 22 - 31 mmol/L [facility] Anion Gap 21(H) 5 - 15 mmol/L [facility] Calcium 9.6 8.5 - 10.5 mg/dL [facility] Protein, Total 7.2 6.1 - 8.0 g/dL [facility] Albumin 3.7 3.2 - 5.2 g/dL [facility] Aspartate Aminotransferase 144(H) 0 - 30 unit/L [facility] Comment:result rechecked-ssc Alanine Aminotransferase 130(H) 0 - 30 unit/L [facility] Comment:result rechecked-ssc Alkaline Phosphatase 72 35 - 105 unit/L [facility] Bilirubin, Total 0.8 0.2 - 1.3 mg/dL [facility] Est Glomerular Filtration Rate 48(L) >=60 mL/min/1. 73 m?? [facility] Comment: This patient's estimated [...] MD CHEMISTRY ORDERABL ES Performing Organization Address City/[facility]/ZIP Co de Phone Number [facility] [place] [address] * EKG 12 Lead (05/10/2023 1:16 PM [...] for LVH, may be normal variant ( Chapin product ) Septal infarct , age undetermined ST & T wave abnormality, consider lateral ischemia Abnormal ECG When compared with ECG of 10-MAY-2023 07:59, Fusion complexes are no longer Present Premature ventricular complexes are no longer Present ST no longer depressed in Anterior leads Confirmed by MD Villareal Danette ([id number]) on 05/10/2023 8:47:46 PM MUSE SYSTEM 05/10/2023 1:16 PM EDT 05/10/2023 8:47 PM EDT Juan Luis Gonzalez MD ECG ORDERABLES Performing Organization Address City/[facility]/ZIP Co de Phone Number MUSE SYSTEM * Lactate, whole blood, send to lab ([facility] (05/10/2023 11:52 AM EDT) Lactate WB 1.8 0.5 - 2.2 mmol/L [facility] Blood 05/10/2023 11:5 2 AM EDT 05/10/2023 12:13 PM EDT Narrative Resulting Agency Comment Spec In Lab Juan Luis Gonzalez MD CHEMISTRY ORDERABLES Performing Organization Address City/[facility]/ZIP Co de Phone Number [facility] [place] [address] * XR Chest One View (05/10/2023 11:16 [...] ? Electronically signed by: ALIX RUVALCABA MD, [facility] ([phone]), at 05/10/2023 1:25 PM Narrative 05/10/2023 1:25 [...] center worker that requested your imaging first. Electronically signed by: ALIX RUVALCABA MD, [facility]([phone]), at 05/10/2023 1:25 PM Juan Luis Gonzalez MD IMG DX ORDERABLES * EKG 12 Lead (05/10/2023 7:59 AM EDT) Pathologist [facility] Ventricular rate 115 BPM MUSE SYSTEM Atrial [...] fellows interpretation Confirmed by fellow MD Anitha, [facility] () on 05/11/2023 6:19:54 AM Confirmed by MD Tram, Chel ([id number]) on 05/11/2023 3:18:56 PM MUSE SYSTEM 05/10/2023 7:59 AM EDT 05/11/2023 3:18 PM EDT Radha Hollins MD ECG ORDERABLES MUSE SYSTEM * (ABNORMAL) Differential, Automated (05/10/2023 2:28 AM EDT) Neutrophil % 77.1 % [facility] Neutrophil Absolute 4.01 1.70 - 6.10 x10(3)/mc L [facility] Lymph % 14.0 % [facility] Lymphocytes Abs 0.7(L) 0.9 - 3.2 x10(3)/mc L [facility] Monocyte % 7.7 % [facility] Monocyte Abs 0.4 0.3 - 0.9 x10(3)/[facility] Eos % 0.4 % [facility] Eosinophils Abs 0.0 0.0 - 0.4 x10(3)/[facility] Basophil % 0.4 % [facility] Baso Absolute 0.0 0.0 - 0.1 x10(3)/[facility] Immature Gran % 0.40 % [facility] Comment: Immature granulocytes(IG's)percentage and absolute count will include metamyelocytes, myelocytes, and promyelocytes. Blood smears from CBCs yielding IG's will be scanned manually for concordance. If this scan disagrees with the automated IG or if promyelocytes are noted, a manual differential will be performed. Immature Gran Absolute 0.02 0.00 - 0.04 x10(3)/[facility] Blood 05/10/2023 2:28 AM EDT 05/10/2023 2:57 AM EDT Narrative Resulting Agency Comment Spec In Lab Klaudia Reid MD HEMATOLOGY OR DERABLES Performing Organization Address City/State/[facility] Co de Phone Number [facility] [place] [address] * (ABNORMAL) Hemogram (05/10/2023 2:28 AM EDT) White Blood Cell 5.2 4.0 - 9.5 x10(3)/[facility] Red Blood Cell 3.11(L) 4.00 - 5.21 x10(6)/[facility] Hemoglobin 10.2(L) 11.7 - 15.5 g/dL [facility] Hematocrit 30.2(L) 35.7 - 45.8 % [facility] Mean Cell Volume 97.1(H) 82.6 - 94.4 fL [facility] Mean Cell Hemoglobin 32.8(H) 27.1 - 32.0 pg [facility] Mean Cell Hemoglobin Concentration 33.8 31.7 - 35.0 g/dL [facility] Platelet 151 145 - 357 x10(3)/mc L [facility] RDW Standard Deviation 44.9 37.0 - 46.0 fL [facility] RDW coefficient of variation 12.8 11.5 - 14.1 % [facility] Mean Platelet Volume 9.8 7.6 - 12.9 fL [facility] NRBC% auto 0.0 % [facility] NRBC Absolute 0.000 0.000 - 0.000 x10(3)/mc L [facility] Blood 05/10/2023 2:28 AM EDT 05/10/2023 2:57 AM EDT Narrative Resulting Agency Comment Spec In Lab Klaudia Reid MD HEMATOLOGY OR DERABLES [facility] [place] [address] * (ABNORMAL) Comprehensive metabolic panel (non-fasting) (05/10/2023 2:28 AM EDT) Glucose 100 65 - 199 mg/dL [facility] Comment:Diabetes: >=200 mg/d L plus symptoms Blood Urea Nitrogen 30(H) 8 - 18 mg/dL [facility] Creatinine 0.90 0.70 - 1.20 mg/dL [facility] Sodium 134(L) 135 - 145 mmol/L [facility] Potassium 4.1 3.5 - 5.0 mmol/L [facility] Comment: Please note: ??Patients with WBC >100,000 may have falsely elevated Potassium levels. ??For accurate Potassium quantification in these patients send serum separator tube (gold top) for subsequent determinations. ??Contact the Clinical Chemistry Laboratory if there are any questions. Chloride 102 98 - 107 mmol/L [facility] Carbon Dioxide 20(L) 22 - 31 mmol/L [facility] Anion Gap 12 5 - 15 mmol/L [facility] Calcium 9.3 8.5 - 10.5 mg/dL [facility] Protein, Total 6.4 6.1 - 8.0 g/dL [facility] Albumin 3.7 3.2 - 5.2 g/dL [facility] Aspartate Aminotransferase 24 0 - 30 unit/L [facility] Alanine Aminotransferase 14 0 - 30 unit/L [facility] Alkaline Phosphatase 70 35 - 105 unit/L [facility] Bilirubin, Total 0.5 0.2 - 1.3 mg/dL [facility] Est Glomerular Filtration Rate 70 >=60 mL/min/1. 73 m?? [facility] Comment: This patient's estimated [...] Lab Radha Hollins MD CHEMISTRY ORDERABL ES [facility] [place] [address] * Heparin (unfractionated) Level (05/10/2023 2:28 AM EDT) UF Heparin 0.37 IU/mL [facility] Comment: Heparin (anti-Xa) [...] Lab Radha Hollins MD [place] [address] * (ABNORMAL) Differential, Automated (05/09/2023 4:00 AM EDT) Neutrophil % 81.7 % [facility] Neutrophil Absolute 5.26 1.70 - 6.10 x10(3)/mc L [facility] Lymph % 10.7 % [facility] Lymphocytes Abs 0.7(L) 0.9 - 3.2 x10(3)/mc L [facility] Monocyte % 6.5 % [facility] Monocyte Abs 0.4 0.3 - 0.9 x10(3)/mc L [facility] Eos % 0.5 % [facility] Eosinophils Abs 0.0 0.0 - 0.4 x10(3)/mc L [facility] Basophil % 0.3 % [facility] Baso Absolute 0.0 0.0 - 0.1 x10(3)/mc L [facility] Immature Gran % 0.30 % [facility] Comment: Immature granulocytes(IG's)percentage and absolute count will include metamyelocytes, myelocytes, and promyelocytes. Blood smears from CBCs yielding IG's will be scanned manually for concordance. If this scan disagrees with the automated IG or if promyelocytes are noted, a manual differential will be performed. Immature Gran Absolute 0.02 0.00 - 0.04 x10(3)/mc L [facility] Blood 05/09/2023 4:00 AM EDT 05/09/2023 4:19 AM EDT Narrative Resulting Agency Comment Spec In Lab Klaudia Reid MD HEMATOLOGY OR DERABLES Performing Organization Address City/[facility]/[place] [address] * (ABNORMAL) Hemogram (05/09/2023 4:00 AM EDT) White Blood Cell 6.4 4.0 - 9.5 x10(3)/mc L [facility] Red Blood Cell 3.15(L) 4.00 - 5.21 x10(6)/mc L [facility] Hemoglobin 10.2(L) 11.7 - 15.5 g/dL [facility] Hematocrit 30.3(L) 35.7 - 45.8 % [facility] Mean Cell Volume 96.2(H) 82.6 - 94.4 fL [facility] Mean Cell Hemoglobin 32.4(H) 27.1 - 32.0 pg [facility] Mean Cell Hemoglobin Concentration 33.7 31.7 - 35.0 g/dL [facility] Platelet 151 145 - 357 x10(3)/mc L [facility] RDW Standard Deviation 44.7 37.0 - 46.0 fL [facility] RDW coefficient of variation 12.8 11.5 - 14.1 % [facility] Mean Platelet Volume 9.4 7.6 - 12.9 fL [facility] NRBC% auto 0.0 % [facility] NRBC Absolute 0.000 0.000 - 0.000 x10(3)/ L [facility] Blood 05/09/2023 4:00 AM EDT 05/09/2023 4:19 AM EDT Narrative Resulting Agency Comment Spec In Lab Klaudia Reid MD HEMATOLOGY OR DERABLES Performing Organization Address City/State/[facility] Co de Phone Number [facility] [place] [address] * Heparin (unfractionated) Level (05/09/2023 4:00 AM EDT) UF Heparin 0.47 IU/mL [facility] Comment: Heparin (anti-Xa) levels [...] Lab Radha Hollins MD HEMATOLOGY ORDERAB LES [facility] [address] [place] [address] * (ABNORMAL) Comprehensive metabolic panel (non-fasting) (05/09/2023 4:00 AM EDT) Glucose 108 65 - 199 mg/dL [facility] Comment:Diabetes: >=200 mg/d L plus symptoms Blood Urea Nitrogen 31(H) 8 - 18 mg/dL [facility] Creatinine 1.03 0.70 - 1.20 mg/dL [facility] Sodium 137 135 - 145 mmol/L [facility] Potassium 4.4 3.5 - 5.0 mmol/L [facility] Comment: Please note: ??Patients with WBC >100,000 may have falsely elevated Potassium levels. ??For accurate Potassium quantification in these patients send serum separator tube (gold top) for subsequent determinations. ??Contact the Clinical Chemistry Laboratory if there are any questions. Chloride 102 98 - 107 mmol/L [facility] Carbon Dioxide 20(L) 22 - 31 mmol/L [facility] Anion Gap 15 5 - 15 mmol/L [facility] Calcium 9.3 8.5 - 10.5 mg/dL [facility] Protein, Total 6.6 6.1 - 8.0 g/dL [facility] Albumin 3.8 3.2 - 5.2 g/dL [facility] Aspartate Aminotransferase 32(H) 0 - 30 unit/L [facility] Alanine Aminotransferase 18 0 - 30 unit/L [facility] Alkaline Phosphatase 78 35 - 105 unit/L [facility] Bilirubin, Total 0.5 0.2 - 1.3 mg/dL [facility] Est Glomerular Filtration Rate 60 >=60 mL/min/1. 73 m?? [facility] Comment: This patient's estimated [...] MD CHEMISTRY ORDERABL ES Performing Organization Address [facility] Co de Phone Number [facility] [place] [address] * (ABNORMAL) pro-Brain Natriuretic Peptide (05/08/2023 4:00 PM EDT) NT-proBNP 25,503(H) <=124 pg/mL [facility] Blood Venous Draw / Unknown 05/08/2023 4:00 PM EDT 05/08/2023 4:25 PM EDT Narrative Resulting Agency Comment Spec In Lab Juan Luis Gonzalez MD CHEMISTRY ORDERABLES Performing Organization Address City/[facility] Co de Phone Number [facility] [place] [address] * Magnesium (05/08/2023 4:00 PM EDT) Magnesium 0.82 0.69 - 1.07 mmol/L [facility] Blood 05/08/2023 4:00 PM EDT 05/08/2023 4:06 PM EDT Narrative Resulting Agency Comment Spec In Lab Enrique Chua MD CHEMISTRY ORDERABLES Performing Organization Address City/[facility] de Phone Number [facility] [place] [address] * Potassium (05/08/2023 4:00 PM EDT) Potassium 3.9 3.5 - 5.0 mmol/L [facility] Comment: Please note: ??Patients [...] [facility] [place] [address] * Heparin (unfractionated) Level (05/08/2023 4:00 PM EDT) UF Heparin 0.43 IU/mL [facility] Comment: Heparin (anti-Xa) levels [...] MD HEMATOLOGY ORDERAB LES Performing Organization Address [facility] Co de Phone Number [facility] [place] [address] * EKG 12 Lead (05/08/2023 3:51 PM [...] leads Confirmed by MD Harshil, Enrique Bell ([id number]) on 05/10/2023 8:11:46 AM MUSE SYSTEM 05/08/2023 3:51 PM EDT 05/10/2023 8:11 AM EDT Radha Hollins MD ECG ORDERABLES MUSE SYSTEM * (ABNORMAL) Differential, Automated (05/08/2023 11:38 AM EDT) Pathologist [facility] Neutrophil % 71.3 % [facility] Neutrophil Absolute 2.91 1.70 - 6.10 x10(3)/mc L [facility] Lymph % 19.1 % [facility] Lymphocytes Abs 0.8(L) 0.9 - 3.2 x10(3)/mc L [facility] Monocyte % 9.0 % [facility] Monocyte Abs 0.4 0.3 - 0.9 x10(3)/mc L [facility] Eos % 0.2 % [facility] Eosinophils Abs 0.0 0.0 - 0.4 x10(3)/mc L [facility] Basophil % 0.2 % [facility] Baso Absolute 0.0 0.0 - 0.1 x10(3)/mc L [facility] Immature Gran % 0.20 % [facility] Comment: Immature granulocytes(IG's)percentage and absolute count will include metamyelocytes, myelocytes, and promyelocytes. Blood smears from CBCs yielding IG's will be scanned manually for concordance. If this scan disagrees with the automated IG or if promyelocytes are noted, a manual differential will be performed. Immature Gran Absolute 0.01 0.00 - 0.04 x10(3)/mc L [facility] Blood 05/08/2023 11:3 8 AM EDT 05/08/2023 11:44 AM EDT Narrative Resulting Agency Comment Spec In Lab Lincoln Sal MD HEMATOLOGY ORDERA BLES [facility] [place] [address] * (ABNORMAL) Hemogram (05/08/2023 11:38 AM EDT) White Blood Cell 4.1 4.0 - 9.5 x10(3)/mc L [facility] Red Blood Cell 3.05(L) 4.00 - 5.21 x10(6)/ L [facility] Hemoglobin 10.2(L) 11.7 - 15.5 g/dL [facility] Hematocrit 29.6(L) 35.7 - 45.8 % [facility] Mean Cell Volume 97.0(H) 82.6 - 94.4 fL [facility] Mean Cell Hemoglobin 33.4(H) 27.1 - 32.0 pg [facility] Mean Cell Hemoglobin Concentration 34.5 31.7 - 35.0 g/dL [facility] Platelet 136(L) 145 - 357 x10(3)/mc L [facility] RDW Standard Deviation 44.3 37.0 - 46.0 fL [facility] RDW coefficient of variation 12.6 11.5 - 14.1 % [facility] Mean Platelet Volume 9.4 7.6 - 12.9 fL [facility] NRBC% auto 0.0 % [facility] NRBC Absolute 0.000 0.000 - 0.000 x10(3)/mc L [facility] Blood 05/08/2023 11:3 8 AM EDT 05/08/2023 11:44 AM EDT Narrative Resulting Agency Comment Spec In Lab Lincoln Sal MD HEMATOLOGY ORDERA BLES Performing Organization Address [facility] Co de Phone Number [facility] [place] [address] * TSH (05/08/2023 11:38 AM EDT) Thyroid Stimulating Hormone 1.27 0.27 - 4.20 mcIU/mL [facility] Comment: Reference Interval (mcIU/mL): Females: ??First Trimester: 0.23-3.88 ??Second Trimester: 0.22-3.90 ??Third Trimester: 0.44-4.66 Blood 05/08/2023 11:3 8 AM EDT 05/08/2023 11:44 AM EDT Narrative Resulting Agency Comment Spec In Lab Enrique Chua MD CHEMISTRY ORDERABLES Performing Organization Address [facility] Co de Phone Number [facility] [place] [address] * (ABNORMAL) Phosphorus (05/08/2023 11:38 AM EDT) Phosphorus 4.7(H) 2.5 - 4.5 mg/dL [facility] Blood 05/08/2023 11:3 8 AM EDT 05/08/2023 11:44 AM EDT Narrative Resulting Agency Comment Spec In Lab Enrique Chua MD CHEMISTRY ORDERABLES Performing Organization Address [facility] Co de Phone Number [facility] [place] [address] * Magnesium (05/08/2023 11:38 AM EDT) Magnesium 0.76 0.69 - 1.07 mmol/L [facility] Blood 05/08/2023 11:3 8 AM EDT 05/08/2023 11:44 AM EDT Narrative Resulting Agency Comment Spec In Lab Enrique Chua MD CHEMISTRY ORDERABLES Performing Organization Address [facility] Co de Phone Number [facility] [place] [address] * (ABNORMAL) Basic Metabolic Panel (non-fasting) (05/08/2023 11:38 AM EDT) Glucose 97 65 - 199 mg/dL [facility] Comment:Diabetes: >=200 mg/d L plus symptoms Blood Urea Nitrogen 27(H) 8 - 18 mg/dL [facility] Creatinine 1.02 0.70 - 1.20 mg/dL [facility] Sodium 139 135 - 145 mmol/L [facility] Potassium 4.2 3.5 - 5.0 mmol/L [facility] Comment: Please note: ??Patients with WBC >100,000 may have falsely elevated Potassium levels. ??For accurate Potassium quantification in these patients send serum separator tube (gold top) for subsequent determinations. ??Contact the Clinical Chemistry Laboratory if there are any questions. Chloride 105 98 - 107 mmol/L [facility] Carbon Dioxide 20(L) 22 - 31 mmol/L [facility] Anion Gap 14 5 - 15 mmol/L [facility] Calcium 9.4 8.5 - 10.5 mg/dL [facility] Est Glomerular Filtration Rate 60 >=60 mL/min/1. 73 m?? [facility] Comment: This patient's estimated [...] Chua MD CHEMISTRY ORDERABLES Performing Organization Address [facility]/ZIP Co de Phone Number [facility] [place] [address] * ECHO COMPLETE (05/08/2023 11:02 AM EDT) EF 25 HEARTLAB SYSTEM Anatomical Region Laterality Modality Cardiac Other 05/08/2023 10:0 3 AM EDT Narrative 05/08/2023 11:51 AM EDT ? Echocardiogram Report Name: PURNIMA THACKER ?Study Date: 05/08/2023 10:03 AMBP: 92/64 mmHg ? Patient Location: [facility]^CV29^A : 1955 ? Height: 155 cm ? Account: [id number] Age: 67 yrs ? Weight: 78 kg Gender: Female ?BSA: 1.8 m2 Ordering Physician: ENRIQUE CHUA Referring Physician: MARIO ALBERTO CHIN Performed By: CHUCKIE Canchola Reason For Study: SAVR Stenosis Exam Location: [facility]. Interpretation Summary -Left ventricle is [...] worsening stenosis. Mitral regurgitation is similar. Procedure Complete-88470. Satisfactory quality. There is normal sinus rhythm. [...] Study Date: 0:03 AMBP: 92/64 mmHg Patient Location:[facility]^CV29^A : 1955 Height: 155 cm Account: [id number] Age: 67 yrs Weight: 78 kg Gender: Female BSA: 1.8 m2 Ordering Physician: ENRIQUE CHUA Referring Physician: MARIO ALBERTO CHIN Performed By: CHUCKIE Canchola Reason For Study: SAVR Stenosis Exam Location: [facility]. Interpretation Summary -Left ventricle is [...] suggestsworsening stenosis. Mitral regurgitation is similar. Procedure Complete-[id number]. Satisfactory quality. There is normal sinus rhythm. [...] 9:45 AM EDT) UF Heparin 0.54 IU/mL [facility] Comment: Heparin (anti-Xa) [...] Lab Enrique Chua MD HEMATOLOGY ORDERABLE S [facility] [place] [address] documented in this encounter Visit Diagnoses Diagnosis S/P TAVR (transcatheter aortic valve replacement)- Primary Aortic valve stenosis, etiology of cardiac valve disease unspecified Heart failure with reduced ejection fraction due to heart valve disease Mild coronary artery disease by [facility] 11/09/2022 Mixed connective tissue [...] Mild coronary artery disease by [facility] 11/09/2022 Stenosis of prosthetic [...] on Wed05/13/23 at 0900, Until Discontinued, Routine 0836 (Given [...] Provider: Gabino Calhoun, RN)1957 (Stopped - Provider: Favian Mckeon, VALDO) magnesium sulfate 2 g in sterile water 50 mL infusion (COMPLETED) 2 g, Intravenous, ONCE, 1 dose, On Wed05/22/23 at 0630, Administer over 120 Minutes 0615 (New Bag - Provider: Favian Mckeon, RN)0815 (Stopped - Provider: Kai Gallego, VALDO) metoproloL tartrate (Lopressor) tablet 25 [...] refused) 0900 (Not Given - Provider: Kia Gallego, RN - Reason: Patient/family refused) potassium chloride [...] post-op day 1 in the AM Give NM if unable to take PO, Routine Group [...] Routine documented in this encounter Care Teams Healthcare Analyst Relationship Specialty Start Date End Date Magdalena Acosta MD [address] [place] [address] PCP - General Family Medicine 02/05/23 documented as of this encounter
--- OUTSIDE RECORDS SUMMARY | 2024-05-11 14:40 | XMS_ITS | Encounter Summary ---
Author Organization [facility] [place] [address] Care Team Providers Care Car Inspection And Repair Manager Name Role Phone Magdalena Acosta MD Primary Care Provider [phone] Encounter Details Date Type Department Care Team (Late st Contact Info) Description 02/17/2023 2:00 PM EDT Office [place] [phone] Alirio Esparza MD Aortic valve stenosis, etiology [...] [facility] Hemat[facility] Oncology [address] [place] [address] 05/12/2024 10:00 AM EDT Office Visit Hematology [place] [address] Markel Borjas MD [facility] [address] [place] [address] 03/01/2025 4:15 PM EDT Office Visit Dermatology at [place] [address] [place] [address] Marek Bonilla MD [address] [facility] [place] [address] documented as of this encounter Visit Diagnoses Diagnosis Aortic valve stenosis, etiology of cardiac valve disease unspecified Chronic idiopathic neutropenia Other neutropenia documented in this encounter Care Teams Car Inspection And Repair Manager Relationship Specialty Start Date End Date Magdalena Acosta MD [address] [place] [address] PCP - General Family Medicine 02/05/23 documented as of this encounter
--- OUTSIDE RECORDS SUMMARY | 2024-05-11 14:40 | XMS_ITS | Encounter Summary ---
Author Organization [facility] Address [facility] [place] [address] Care Team Providers Care Transmission Line Engineer Name Role Phone Magdalena Acosta MD Primary Care Provider [phone] Encounter Details Date Type Department Care Team (Late st Contact Info) Description 04/27/2023 3:00 PM EDT Office [place] [address] Magdalena Peralta MD [facility] DR [place] [address] Mixed connective tissue disease Social History Tobacco [...] 1:5120 speckled; VIC negative; Myositis panel with TURNER OFF ab 149.1 (positive); Anti U1RNP IgG 119; [...] [facility] [address] [place] [address] 05/12/2024 10:00 AM EDT Office Visit Hematology [place] [address] Markel Borjas MD [facility] [address] HEMATOLOGY [place] [address] 03/01/2025 4:15 PM EDT Office Visit Dermatology at [place] [address] [place] [phone] Marek Bonilla MD [address], [place] [address] documented as of this encounter Visit Diagnoses Diagnosis Mixed connective tissue disease Other specified diffuse disease of connective tissue Chronic idiopathic neutropenia Other neutropenia documented in this encounter Care Teams Transmission Line Engineer Relationship Specialty Start Date End Date Magdalena Acosta MD [address] [place] [address] PCP - General Family Medicine 02/05/23 documented as of this encounter
--- OUTSIDE RECORDS SUMMARY | 2024-05-11 14:40 | XMS_ITS | Encounter Summary ---
Author Organization [facility] Address [facility] [place] [address] Care Team Providers Care Mortgage Loan Assistant Name Role Phone Junaid Deborah Shields APRN Primary Care Provider [phone] Encounter Details Date Type Department Care Team (Latest Contact Info) Description 06/22/2022 10:00 AM EST Office [place] [phone] Raymond Loredo MD [facility] [place] [address] Raynaud's phenomenon without gangrene; Positive FRANCISCO (antinuclear [...] no digital ulceration, no respirophasic pain, no nelys arthritis, and no skin rash. 2. Knee [...] radiocarpal or ulnocarpal joints. Hands: Normal supervisor in charge and claw. SJC/TJC 0/0. Knees: Decreased flexion [...] [facility] Hematology Oncology [address] [place] [address] 05/12/2024 10:00 AM EDT Office Visit Hematology [place] [address] Markel Borjas MD [facility] DR HEMATOLOGY [place] [address] 03/01/2025 4:15 PM EDT Office Visit Dermatology at [place] [address] [place] [address] Marek Bonilla MD [address] [facility] [place] [address] documented as of this encounter Visit Diagnoses Diagnosis Raynaud's phenomenon without gangrene Positive FRANCISCO (antinuclear antibody) Other and unspecified nonspecific immunological findings Primary osteoarthritis involving multiple joints Cervical disc disorder at C6-C7 level with radiculopathy Chronic idiopathic neutropenia Other neutropenia documented in this encounter Care Teams Mortgage Loan Assistant Relationship Specialty Start Date End Date Deborah Quiroga APRN PCP - General Family Medicine 03/24/16 02/04/23 documented as of this encounter
--- OUTSIDE RECORDS SUMMARY | 2024-05-11 14:40 | XMS_ITS | Encounter Summary ---
Author Organization [facility] [place] [address] Care Team Providers Care Charge Weigher Name Role Phone Magdalena Acosta MD Primary Care Provider [phone] Reason for Referral * Consultation (Routine) - Closed Specialty Diagnoses / Procedures Referred By Contac t Referred To Contact Rheumatology Diagnoses Weakness Kyra Haas MD [facility] [address] [place] [address] [facility] Rheumatology [address] [place] [phone] Referral ID Status Reason Start Date Expiration Date V isits Requested Visits Authorized [id number] Closed Consult, Test & Treat PCP Updated and/or Approved 02/25/2023 02/25/2024 6 6 Encounter Details Date Type Department Care Team (Late st Contact Info) Description 02/25/2023 Transcribe Orders eDH Incoming Referrals [phone] Magdalena Acosta MD [address] [place] [address] Weakness Social History Tobacco Use [...] [facility] Hematology Oncology [address] [place] [address] 05/12/2024 10:00 AM EDT Office Visit Hematology [place] [address] Markel Borjas MD [facility] [place] [address] 03/01/2025 4:15 PM EDT Office Visit Dermatology at [place] [address] [place] [phone] Marek Bonilla MD [address] [facility] [address] [place] [address] Scheduled Referrals Name Type Priority Associated Diagnoses Order Schedule Referral to Rheumatology Outpatient Referral Routine Weakness Ordered: 02/25/2023 documented as of this encounter Visit Diagnoses Diagnosis Weakness Other malaise and fatigue Chronic idiopathic neutropenia Other neutropenia documented in this encounter Care Teams Charge Weigher Relationship Specialty Start Date End Date Magdalena Acosta MD [address] [place] [address] PCP - General Family Medicine 02/05/23 documented as of this encounter
--- OUTSIDE RECORDS SUMMARY | 2024-05-11 14:40 | XMS_ITS | Encounter Summary ---
Author Organization [facility] [place] [address] Care Team Providers Care Portable Pinch Riveter Name Role Phone Deborah Quiroga APRN Primary Care Provider [phone] Encounter Details Date Type Department Care Team (Late st Contact Info) Description 06/17/2022 Ancillary Procedure Radiology Library at [facility] [address] Deborah Quiroga APRN [address] [place] [phone] Social History Tobacco Use Types Packs/Day [...] [facility] Hematology Oncology [address] [place] [address] 05/12/2024 10:00 AM EDT Office Visit Hematology [place] [phone] Markel Borjas MD [facility] HEMATOLOGY [place] [address] 03/01/2025 4:15 PM EDT Office Visit Dermatology at [place] [address] [facility] [place] [phone] Marek Bonilla MD [address], [place] [address] documented as of this encounter Procedures Procedure Name Priority Date/Time Associated Diagnosis Comments FILM LIBRARY STORAGE ONLY MR SPINE Routine 06/17/2022 12:00 AM EST documented in this encounter Results * Film Library- Storage Only MR Spine (06/17/2022 12:00 AM EST) Narrative [facility] - 06/18/2022 11:00 AM EST This exam is auto-finalizing. It's purpose is for storage only. Deborah Quiroga APRN IMG FILM LIBRARY OR DERABLES Performing Organization Address City/State/[facility] de Phone Number [place], [place] documented in this encounter Visit Diagnoses Not on filedocumented in this encounter Care Teams Portable Pinch Riveter Relationship Specialty Start Date End Date Deborah Quiroga APRN PCP - General Family Medicine 03/24/16 02/04/23 documented as of this encounter
--- OUTSIDE RECORDS SUMMARY | 2024-05-11 14:40 | XMS_ITS | Encounter Summary ---
[place] [address] Care Team Providers Care Pan Puller Name Role Phone Magdalena Acosta MD Primary Care Provider Reason for Visit * Reason Comments Suture / Staple Removal Encounter Details Date Type Department Care Team (Late st Contact Info) Description 02/16/2023 10:00 AM EDT Office Visit Dermatology at [place] [address] [facility] [place] [phone] Marek Bonilla MD [address] [facility], [address] A DERMATOLOGY [place], [place] [phone] Visit for suture removal Social History Tobacco [...] [facility] Hemat[facility] Oncology [address] [place] [address] 05/12/2024 10:00 AM EDT Office Visit [place]ematology [place] [address] Markel Borjas MD [facility] [address] [place] [address] 03/01/2025 4:15 PM EDT Office Visit Dermatology at [place] [address] [facility] [place] [address] Marek Bonilla MD [address], [place] [address] documented as of this encounter Visit Diagnoses Diagnosis Visit for suture removal Encounter for removal of sutures Chronic idiopathic neutropenia Other neutropenia documented in this encounter Care Teams Pan Puller Relationship Specialty Start Date End Date Magdalena Acosta MD [address] [place] [address] PCP - General Family Medicine 02/05/23 documented as of this encounter
--- OUTSIDE RECORDS SUMMARY | 2024-05-11 14:40 | XMS_ITS | Encounter Summary ---
Author Organization [facility] [place] [address] Care Team Providers Care Orientation & Mobility Specialist Name Role Phone Magdalena Acosta MD Primary Care Provider [phone] Encounter Details Date Type Department Care Team (Late st Contact Info) Description 03/29/2023 Notes Only Cardiology at [address] [phone] Vahid Plasencia, RN Social History Tobacco Use [...] 82/51; Mild AR; Moderate MR; Trace TR [facility] 11/09/2022: Non obstructive CAD STS 4.1 Plan:Schedule SDM clinic, diagnostics and frailty assessment. documented in this encounter Plan of Treatment Upcoming Encounters Date Type Department Care Team (Late st Contact Info) Description 05/12/2024 9:00 AM EDT Laboratory Appointment Lab at [facility] [place]ematology Oncology [address] [place] [address] 05/12/2024 10:00 AM EDT Office Visit Hematology [place] [address] Markel Borjas MD [facility] [address] [place] [address] 03/01/2025 4:15 PM EDT Office Visit Dermatology at [place] [address] [facility] [place] [address] Marek Bonilla MD [address] [place] [address] documented as of this encounter Visit Diagnoses Not on filedocumented in this encounter Care Teams Orientation & Mobility Specialist Relationship Specialty Start Date End Date Magdalena Acosta MD [address] [place] [address] PCP - General Family Medicine 02/05/23 documented as of this encounter
--- OUTSIDE RECORDS SUMMARY | 2024-05-11 14:40 | XMS_ITS | Encounter Summary ---
Author Organization [facility] [place] [address] Care Team Providers Care Medical Billing Associate Name Role Phone Deborah Quiroga APRN Primary Care Provider [phone] Encounter Details Date Type Department Care Team (Late st Contact Info) Description 11/09/2022 11:30 AM EDT - 11/09/2022 12:30 PM EDT [place] [address] Nitesh Escobedo MD [facility] [place] [address] CARDIAC CATHETERIZATION Social History Tobacco Use Types [...] Center 02/05/2023 2:30 PM Marek Bonilla MD [facility] New Medications to be Picked Up None For questions regarding this document or issues relating to this hospitalization on the Medical Service, please contact your inpatient physician through the [facility] Human Resources Generalist . Issues afterhours and on weekends will [...] topically 2 times daily as needed. 10/22/2022 [employer] Verio test strips Strip USE DAILY 01/03/2022 [facility] Delica Plus Lancet 33 gauge Misc USE [...] Pre-Procedure H&P Update: Cardiac Catheterization Purnima Thacker [id number] 1955 Chief Complaint: BONILLA HPI: Purnima Thacker [...] [facility] Pager: [phone] documented in this encounter Plan of Treatment Upcoming Encounters Date Type Department Care Team (Late st Contact Info) Description 05/12/2024 9:00 AM EDT Laboratory Appointment Lab at [facility] Hematology Oncology [address] [place] [address] 05/12/2024 10:00 AM EDT Office Visit Hematology [place] [address] Markel Borjas MD [facility] [address] [place]AT[place] [address] 03/01/2025 4:15 PM EDT Office Visit Dermatology at [place] [address] [place] [address] Marek Bonilla MD [address], [place] [address] documented as of this encounter Procedures Procedure Name Priority Date/Time Associated Diagnosis Comments CARDIAC CATHETERIZATION Routine 11/10/19 1:05 PM EDT Aortic valve stenosis, etiology of cardiac valve disease unspecified Cath Plmt Left Heart Cath & Arts W/Inj & Angio Img S&I ([id number]) 11/09/2022 11:51 AM EDT Aortic valve stenosis, [...] ? Procedure Date: 11/09/2022 ? A #: [id number] ? Primary Physician: Nitesh Escobedo ? Case #: [id number] ? File Name: [id number] ? Catheterization Order Number: [id number] ? [facility] ? Final Report [place], [place] ? Patient Name: ? Purnima M. Kirstie ? ID#: ?[id number] ? : ?1955 ? Procedure Date: ? [...] was designated as ASA Class III. The [facility] clinical frailty scale ?is 4: Vulnerable. [...] (Bezet) 457 ms MUSE SYSTEM Calculated P [place] 44 degrees MUSE SYSTEM Calculated R [place] 33 degrees MUSE SYSTEM Calculated T [place] 30 degrees MUSE SYSTEM INTERPRETATION Sinus rhythm Occasional Premature ventricular complexes Otherwise normal ECG When compared with ECG of 21-SEP-2016 12:26, Premature ventricular complexes are now Present [place] interval has decreased Nonspecific T wave abnormality has replaced inverted T waves in Inferior leads I personally reviewed the tracing and edited the fellows interpretation Confirmed by fellow MD Anitha, Carissa ([id number]) on 11/09/2022 6:17:28 PM Confirmed by Elsa [...] MD) documented in this encounter Care Teams Medical Billing Associate Relationship Specialty Start Date End Date Deborah Quiroga, AERIAL SURVEY TECHNICIAN PCP - General Family Medicine 03/24/16 02/04/23 documented as of this encounter
--- OUTSIDE RECORDS SUMMARY | 2024-05-11 14:40 | XMS_ITS | Encounter Summary ---
Author Organization [facility] [place] [address] Care Team Providers Care Medical Services Assistant Name Role Phone Deborah Quiroga APRN Primary Care Provider [phone] Encounter Details Date Type Department Care Team (Latest Contact Info) Description 07/03/2022 1:36 PM EST - 07/03/2022 11:59 PM EST Hospital Encounter Hematology [place] [address] Discharge Disposition: Home Social History Tobacco Use [...] [facility] Hematology Oncology [address] [place] [address] 05/12/2024 10:00 AM EDT Office Visit Hematology [place] [address] Markel Borjas MD [facility] [address] HEMATOLOGY [place] [address] 03/01/2025 4:15 PM EDT Office Visit Dermatology at [place] [address] [place] [phone] Marek Bonilla MD [address], [place] [address] documented as of this encounter Procedures Procedure [...] MD CHEMISTRY ORDERABL ES Performing Organization Address City/[facility]/ZIP Co de Phone Number [facility] [place] [address] * Vitamin B12 (07/03/2022 1:59 PM EST) Vitamin B12 449 232 - 1,245 pg/mL [facility] Blood Venous Draw / Unknown 07/03/2022 1:59 PM EST 07/03/2022 2:13 PM EST Narrative Resulting Agency Comment Spec In Lab Markel Borjas MD CHEMISTRY ORDERABL ES Performing Organization Address City/[facility]/ZIP Co de Phone Number [facility] [place] [address] documented in this encounter Visit Diagnoses Not on filedocumented in this encounter Care Teams Medical Services Assistant Relationship Specialty Start Date End Date Deborah Quiroga APRN PCP - General Family Medicine 03/24/16 02/04/23 documented as of this encounter
--- OUTSIDE RECORDS SUMMARY | 2024-05-11 14:40 | XMS_ITS | Encounter Summary ---
Author Organization [facility] Address [facility] [place] [address] Care Team Providers Care Benefits Processor Name Role Phone Magdalena Acosta MD Primary Care Provider [phone] Encounter Details Date Type Department Care Team [...] [facility] [place] [address] [place] [address] 05/12/2024 10:00 AM EDT Office Visit [place]ematology [place] [address] Markel Borjas MD [facility] [address] HEMATOLOGY [place] [address] 03/01/2025 4:15 PM EDT Office Visit Dermatology at [place] [address] [facility] [place] [phone] Marek Bonilla MD [address] [facility], [place] [address] documented as of this encounter Visit Diagnoses Not on filedocumented in this encounter Care Teams Benefits Processor Relationship Specialty Start Date End Date Magdalena Acosta MD [address] [place] [address] PCP - General Family Medicine 02/05/23 documented as of this encounter
--- OUTSIDE RECORDS SUMMARY | 2024-05-11 14:40 | XMS_ITS | Encounter Summary ---
Author Organization [facility] [place] [address] Care Team Providers Care Switchboard Receptionist Name Role Phone Magdalena Acosta MD Primary Care Provider [phone] Encounter Details Date Type Department Care Team (Latest Contact Info) Description 03/18/2023 2:30 PM EDT Laboratory Appointment Lab [address] [phone] Positive FRANCISCO (antinuclear antibody) Social History Tobacco [...] [facility] Hematology Oncology [address] [place] [address] 05/12/2024 10:00 AM EDT Office Visit Hematology [place] [address] Markel Borjas MD [facility] [place] [address] 03/01/2025 4:15 PM EDT Office Visit Dermatology at [address] [address] Marek Bonilla MD [address] [facility] [place], [place] [phone] documented as of this encounter Procedures Procedure [...] Pathologist [facility] Neutrophil % 71.2 % [facility] Neutrophil Absolute 2.26 1.70 - 6.10 x10(3)/mc L [facility] Lymph % 18.2 % [facility] Lymphocytes Abs 0.6(L) 0.9 - 3.2 x10(3)/ L [facility] Monocyte % 9.7 % [facility] Monocyte Abs 0.3 0.3 - 0.9 x10(3)/[facility] Eos % 0.3 % [facility] Eosinophils Abs 0.0 0.0 - 0.4 x10(3)/[facility] Basophil % 0.6 % [facility] Baso Absolute 0.0 0.0 - 0.1 x10(3)/[facility] Immature Gran % 0.00 % [facility] Comment: Immature granulocytes(IG's)percentage and absolute count will include metamyelocytes, myelocytes, and promyelocytes. Blood smears from CBCs yielding IG's will be scanned manually for concordance. If this scan disagrees with the automated IG or if promyelocytes are noted, a manual differential will be performed. Immature Gran Absolute 0.00 0.00 - 0.04 x10(3)/[facility] Blood 03/18/2023 2:14 PM EDT 03/18/2023 2:24 PM EDT Narrative Resulting Agency Comment Spec In Lab Magdalena Peralta MD HEMATOLOGY ORDERABLE S [facility] [place] [address] * (ABNORMAL) Hemogram (03/18/2023 2:14 PM EDT) White Blood Cell 3.2(L) 4.0 - 9.5 x10(3)/[facility] Red Blood Cell 3.44(L) 4.00 - 5.21 x10(6)/[facility] Hemoglobin 11.1(L) 11.7 - 15.5 g/dL [facility] Hematocrit 32.9(L) 35.7 - 45.8 % [facility] Mean Cell Volume 95.6(H) 82.6 - 94.4 fL [facility] Mean Cell Hemoglobin 32.3(H) 27.1 - 32.0 pg [facility] Mean Cell Hemoglobin Concentration 33.7 31.7 - 35.0 g/dL [facility] Platelet 144(L) 145 - 357 x10(3)/mc L [facility] RDW Standard Deviation 42.6 37.0 - 46.0 fL [facility] RDW coefficient of variation 12.3 11.5 - 14.1 % [facility] Mean Platelet Volume 9.4 7.6 - 12.9 fL [facility] NRBC% auto 0.0 % [facility] NRBC Absolute 0.000 0.000 - 0.000 x10(3)/mc L [facility] Blood 03/18/2023 2:14 PM EDT 03/18/2023 2:24 PM EDT Narrative Resulting Agency Comment Spec In Lab Magdalena Peralta MD HEMATOLOGY ORDERABLE S Performing Organization Address City/[facility]/ZIP Co de Phone Number [facility] [place] [address] * (ABNORMAL) Sedimentation rate (03/18/2023 2:14 PM EDT) Sedimentation Rate Automated 68(H) 2 - 39 mm/hr [facility] Comment: Effective July 12, 2019 new capillary photometric technology has resulted in a change in reference ranges. It is recommended that each ESR result be reviewed with its own age appropriate reference range. Blood 03/18/2023 2:14 PM EDT 03/18/2023 2:24 PM EDT Narrative Resulting Agency Comment Spec In Lab Kia Viramontes DO HEMATOLOGY ORDERAB LES [facility] [place] [address] * CRP, acute inflammation (03/18/2023 2:14 PM EDT) C-Reactive Protein 3.0 <=4.9 mg/L [facility] Blood 03/18/2023 2:14 PM EDT 03/18/2023 2:24 PM EDT Narrative Resulting Agency Comment Spec In Lab Kiagiacomo Mossew DO CHEMISTRY ORDERABL ES Performing Organization Address [facility] Co de Phone Number [facility] [place] [address] * C3 Complement (03/18/2023 2:14 PM EDT) Complement C3 142 90 - 180 mg/dL [facility] Blood 03/18/2023 2:14 PM EDT 03/18/2023 2:24 PM EDT Narrative Resulting Agency Comment Spec In Lab Kia Mossew DO CHEMISTRY ORDERABL ES Performing Organization Address [facility] de Phone Number [facility] [place] [address] * C4 Complement (03/18/2023 2:14 PM EDT) Complement C4 30 10 - 40 mg/dL [facility] Blood 03/18/2023 2:14 PM EDT 03/18/2023 2:24 PM EDT Narrative Resulting Agency Comment Spec In Lab Kia Mossew DO CHEMISTRY ORDERABL ES Performing Organization Address [facility] de Phone Number [facility] [place] [address] * CK (03/18/2023 2:14 PM EDT) Creatine Kinase 38 0 - 160 unit/L [facility] Blood 03/18/2023 2:14 PM EDT 03/18/2023 2:24 PM EDT Narrative Resulting Agency Comment Spec In Lab Kia D Wander DO CHEMISTRY ORDERABL ES Performing Organization Address [facility] Co de Phone Number [facility] [place] [address] * DNA Antibody (Double-Stranded) (03/18/2023 2:14 PM EDT) dsDNA Ab <0.6 <=15.0 IU/mL [facility] Comment: <10 negative 10-15 equivocal >15 positive This dsDNA antibody result was generated using a fluoroenzyme immunoassay on the [employer] 250 analyzer. This quantitative test is designed to detect IgG antibodies directed against double stranded DNA in human serum. The presence of antibodies that recognize dsDNA is a highly specific marker for systemic lupus erythematosus. Please note that as of 05/26/2022 that this testing is performed by the Special Chemistry Laboratory at [facility]. This change in testing location is associated with a change is testing method and reference intervals. Please review the results of this test in association with the posted reference intervals. Blood 03/18/2023 2:14 PM EDT 03/19/2023 7:19 AM EDT Narrative Resulting Agency Comment Spec In Lab Kia Viramontes DO LAB SEND OUT ORDER JODIE [facility] [place] [address] * (ABNORMAL) FRANCISCO Ab by IFA (03/18/2023 2:14 PM EDT) [facility] FRANCISCO Ab Screen Test ? Result ?Flag ??Unit ??RefValue Antinuclear Ab, HEp-2 ?Positive 1:2560 ??@ ?<1:80 (Negative) ??Substrate, S ? ADDITIONAL INFORMATION --------- ?Method: Immunofluorescence using HEp-2 cellular substrate. ??FRANCISCO Titer: ? 1:2560 ??FRANCISCO Pattern: ? Speckled ?Test Performed by: ?[facility] ?[address] [place] [address] ?Pigment And Lacquer Mixer: Raymond Chaudhry M.D. Ph.D.; CLIA# [id number] ([id number]) [facility] Blood 03/18/2023 2:14 PM EDT 03/18/2023 3:02 PM EDT Narrative Resulting Agency Comment Spec In Lab Kia Viramontes DO CHEMISTRY ORDERABL ES [facility] [place] [address] * Comprehensive metabolic panel (non-fasting) (03/18/2023 2:14 PM EDT) Glucose 93 65 - 199 mg/dL [facility] Comment:Diabetes: >=200 mg/d L plus symptoms Blood Urea Nitrogen 18 8 - 18 mg/dL [facility] Creatinine 0.99 0.70 - 1.20 mg/dL [facility] Sodium 141 135 - 145 mmol/L [facility] Potassium 4.5 3.5 - 5.0 mmol/L [facility] Comment: Please note: ??Patients with WBC >100,000 may have falsely elevated Potassium levels. ??For accurate Potassium quantification in these patients send serum separator tube (gold top) for subsequent determinations. ??Contact the Clinical Chemistry Laboratory if there are any questions. Chloride 106 98 - 107 mmol/L [facility] Carbon Dioxide 24 22 - 31 mmol/L [facility] Anion Gap 11 5 - 15 mmol/L [facility] Calcium 10.0 8.5 - 10.5 mg/dL [facility] Protein, Total 7.3 6.1 - 8.0 g/dL [facility] Albumin 4.3 3.2 - 5.2 g/dL [facility] Aspartate Aminotransferase 26 0 - 30 unit/L [facility] Alanine Aminotransferase 11 0 - 30 unit/L [facility] Alkaline Phosphatase 91 35 - 105 unit/L [facility] Bilirubin, Total 0.4 0.2 - 1.3 mg/dL [facility] Est Glomerular Filtration Rate 62 >=60 mL/min/1. 73 m?? [facility] Comment: This patient's estimated [...] Lab Kia Viramontes DO CHEMISTRY ORDERABL ES [facility] [place] [address] documented in this encounter Visit Diagnoses Diagnosis Positive FRANCISCO (antinuclear antibody) Other and unspecified nonspecific immunological findings Chronic idiopathic neutropenia Other neutropenia documented in this encounter Care Teams Switchboard Receptionist Relationship Specialty Start Date End Date Magdalena Acosta MD [address] [place] [address] PCP - General Family Medicine 02/05/23 documented as of this encounter
--- OUTSIDE RECORDS SUMMARY | 2024-05-11 14:40 | XMS_ITS | Encounter Summary ---
Author Organization [facility] Address [facility] [place] [address] Care Team Providers Care Operator Supply Name Role Phone Magdalena Acosta MD Primary Care Provider [phone] Encounter Details Date Type Department Care Team [...] [facility] Hemat[facility] Oncology [address] [place] [address] 05/12/2024 10:00 AM EDT Office Visit [place] [address] Markel Borjas MD [facility] [address] [place] [address] 03/01/2025 4:15 PM EDT Office Visit Dermatology at [place] [address] [facility] [place] [phone] Marek Bonilla MD [address] [facility] [place] [address] documented as of this encounter Visit Diagnoses Not on filedocumented in this encounter Care Teams Operator Supply Relationship Specialty Start Date End Date Magdalena Acosta MD [address] [place] [address] PCP - General Family Medicine 02/05/23 documented as of this encounter
--- OUTSIDE RECORDS SUMMARY | 2024-05-11 14:40 | XMS_ITS | Encounter Summary ---
Author Organization [facility] Address [facility] [place] [address] Care Team Providers Care Custom Designer Name Role Phone Magdalena Acosta MD Primary Care Provider [phone] Reason for Visit * Consultation (Routine) - Closed Specialty Diagnoses / Procedures Referred By Contac t Referred To Contact Rheumatology Diagnoses Weakness Kyra Haas MD [facility] [address] [place] [address] [facility] Rheumatology [address] [place] [phone] Referral ID Status Reason Start Date Expiration Date V isits Requested Visits Authorized [id number] Closed Consult, Test & Treat PCP Updated and/or Approved 02/25/2023 02/25/2024 6 6 Encounter Details Date Type Department Care Team (Late st Contact Info) Description 03/18/2023 1:00 PM EDT Office [place] [address] Kia Viramontes DO [facility] [place] [address] Magdalena Peralta MD [facility] [place] [address] Positive FRANCISCO (antinuclear antibody) Social [...] 1:5120 speckled VIC negative Myositis panel with CYTOPATHOLOGY TECHNOLOGIST ab 149.1 (positive) Anti U1RNP IgG [...] a chair without assistance of upper extremities. Motion Designer strength 3+/5 bilaterally; otherwise large muscle groups [...] due to risk of retinal toxicity with longwall machine operator helper Plaquenil use, which she already does. Recommendations: #mixed connective tissue disease Start hydroxychloroquine 200 mg qd Labs today: repeat FRANCISCO, dsDNA, complements, CBC, CMP, CK, ESR, CRP Follow up 1 month The patient was seen and discussed with Dr. Wander Peralta MD Rheumatology Fellow Pager: [phone] CC: Kyra Haas * Kia Viramontes DO [place] [facility] [place] [facility] [place] [address] [place] [address] 05/12/2024 10:00 AM EDT Office Visit H[place]ology [place] [address] Markel Borjas MD [facility] DR HEMATOLOGY [place] [address] 03/01/2025 4:15 PM EDT Office Visit Dermatology at [place] [address] [place] [address] Marek Bonilla MD [address] [facility], [place] [address] documented as of this encounter Results * Comprehensive metabolic panel (non-fasting) (03/18/2023 2:14 PM EDT) [facility] Signature Glucose 93 65 - 199 mg/dL [facility] Comment:Diabetes: >=200 mg/d L plus symptoms Blood Urea Nitrogen 18 8 - 18 mg/dL [facility] Creatinine 0.99 0.70 - 1.20 mg/dL [facility] Sodium 141 135 - 145 mmol/L [facility] Potassium 4.5 3.5 - 5.0 mmol/L [facility] Comment: Please note: ??Patients with WBC >100,000 may have falsely elevated Potassium levels. ??For accurate Potassium quantification in these patients send serum separator tube (gold top) for subsequent determinations. ??Contact the Clinical Chemistry Laboratory if there are any questions. Chloride 106 98 - 107 mmol/L [facility] Carbon Dioxide 24 22 - 31 mmol/L [facility] Anion Gap 11 5 - 15 mmol/L [facility] Calcium 10.0 8.5 - 10.5 mg/dL [facility] Protein, Total 7.3 6.1 - 8.0 g/dL [facility] Albumin 4.3 3.2 - 5.2 g/dL [facility] Aspartate Aminotransferase 26 0 - 30 unit/L [facility] Alanine Aminotransferase 11 0 - 30 unit/L [facility] Alkaline Phosphatase 91 35 - 105 unit/L [facility] Bilirubin, Total 0.4 0.2 - 1.3 mg/dL [facility] Est Glomerular Filtration Rate 62 >=60 mL/min/1. 73 m?? [facility] Comment: This patient's estimated GFR [...] DO CHEMISTRY ORDERABL ES Performing Organization Address City/State/[facility] Co de Phone Number [facility] [place] [address] * (ABNORMAL) FRANCISCO Ab by IFA (03/18/2023 2:14 PM EDT) FRANCISCO Ab Screen Test ? Result ?Flag ??Unit ??RefValue Antinuclear Ab, HEp-2 ?Positive 1:2560 ??@ ?<1:80 (Negative) ??Substrate, S ? ADDITIONAL INFORMATION --------- ?Method: Immunofluorescence using HEp-2 cellular substrate. ??FRANCISCO Titer: ? 1:2560 ??FRANCISCO Pattern: ? Speckled ?Test Performed by: ?[facility] ?[address] [id number] ?Senior Windows Engineer: Raymond Chaudhry M.D. Ph.D.; CLIA# [id number] ([id number]) [facility] Blood 03/18/2023 2:14 PM EDT 03/18/2023 3:02 PM EDT Narrative Resulting Agency Comment Spec In Lab Kia Viramontes DO CHEMISTRY ORDERABL ES [facility] [place] [address] * DNA Antibody (Double-Stranded) (03/18/2023 2:14 PM EDT) dsDNA Ab <0.6 <=15.0 IU/mL [facility] Comment: <10 negative 10-15 equivocal >15 positive This dsDNA antibody result was generated using a fluoroenzyme immunoassay on the [employer] 250 analyzer. This quantitative test is designed to detect IgG antibodies directed against double stranded DNA in human serum. The presence of antibodies that recognize dsDNA is a highly specific marker for systemic lupus erythematosus. Please note that as of 05/26/2022 that this testing is performed by the Special Chemistry Laboratory at [facility]. This change in testing location is associated with a change is testing method and reference intervals. Please review the results of this test in association with the posted reference intervals. Blood 03/18/2023 2:14 PM EDT 03/19/2023 7:19 AM EDT Narrative Resulting Agency Comment Spec In Lab Kia Viramontes DO LAB SEND OUT ORDER JODIE Performing Organization Address [facility] Co de Phone Number [facility] [place] [address] * CK (03/18/2023 2:14 PM EDT) Creatine Kinase 38 0 - 160 unit/L [facility] Blood 03/18/2023 2:14 PM EDT 03/18/2023 2:24 PM EDT Narrative Resulting Agency Comment Spec In Lab Kia Viramontes DO CHEMISTRY ORDERABL ES Performing Organization Address [facility] Co de Phone Number [facility] [place] [address] * C4 Complement (03/18/2023 2:14 PM EDT) Complement C4 30 10 - 40 mg/dL [facility] Blood 03/18/2023 2:14 PM EDT 03/18/2023 2:24 PM EDT Narrative Resulting Agency Comment Spec In Lab Kia D Wander DO CHEMISTRY ORDERABL ES Performing Organization Address [facility] Co de Phone Number [facility] [place] [address] * C3 Complement (03/18/2023 2:14 PM EDT) Complement C3 142 90 - 180 mg/dL [facility] Blood 03/18/2023 2:14 PM EDT 03/18/2023 2:24 PM EDT Narrative Resulting Agency Comment Spec In Lab Kia Viramontes DO CHEMISTRY ORDERABL ES Performing Organization Address [facility] Co de Phone Number [facility] [place] [address] * CRP, acute inflammation (03/18/2023 2:14 PM EDT) C-Reactive Protein 3.0 <=4.9 mg/L [facility] Blood 03/18/2023 2:14 PM EDT 03/18/2023 2:24 PM EDT Narrative Resulting Agency Comment Spec In Lab Kiagiacomo Viramontes DO CHEMISTRY ORDERABL ES Performing Organization Address [facility] Co de Phone Number [facility] [place] [address] * (ABNORMAL) Sedimentation rate (03/18/2023 2:14 PM EDT) Sedimentation Rate Automated 68(H) 2 - 39 mm/hr [facility] Comment: Effective July 12, 2019 new capillary photometric technology has resulted in a change in reference ranges. It is recommended that each ESR result be reviewed with its own age appropriate reference range. Blood 03/18/2023 2:14 PM EDT 03/18/2023 2:24 PM EDT Narrative Resulting Agency Comment Spec In Lab Kia Viramontes DO HEMATOLOGY ORDERAB LES Performing Organization Address [facility] Co de Phone Number [facility] [place] [address] documented in this encounter Visit Diagnoses Diagnosis Positive FRANCISCO (antinuclear antibody) Other and unspecified nonspecific immunological findings Chronic idiopathic neutropenia Other neutropenia documented in this encounter Care Teams Custom Designer Relationship Specialty Start Date End Date Magdalena Acosta MD [address] [place] [address] PCP - General Family Medicine 02/05/23 documented as of this encounter
--- OUTSIDE RECORDS SUMMARY | 2024-05-11 14:40 | XMS_ITS | Encounter Summary ---
Author Organization [facility] [place] [address] Care Team Providers Care Reinforcing Iron And Rebar Workers Name Role Phone Ashley Quirogan Cornelius ANURAG Primary Care Provider [phone] Encounter Details Date Type Department Care Team (Late st Contact Info) Description 11/02/2022 Orders Only [place] [phone] Emily Lyons PA [facility] [place] [address] Aortic valve stenosis, etiology of cardiac valve [...] [place] [facility] [place] [address] [place] [address] 05/12/2024 10:00 AM EDT Office Visit [place]ology [place] [phone] Markel Borjas MD [facility] [address] [place] [address] 03/01/2025 4:15 PM EDT Office Visit Dermatology at [place] [address] [place] [phone] Marek Bonilla MD [address] [address] documented as of this encounter Visit Diagnoses Diagnosis Aortic valve stenosis, etiology of cardiac valve disease unspecified Chronic idiopathic neutropenia Other neutropenia documented in this encounter Care Teams Reinforcing Iron And Rebar Workers Relationship Specialty Start Date End Date Deborah Quiroga, WET FINISHER PCP - General Family Medicine 03/24/16 02/04/23 documented as of this encounter
--- OUTSIDE RECORDS SUMMARY | 2024-05-11 14:40 | XMS_ITS | Encounter Summary ---
Author Organization [facility] Address [facility] [place] [address] Care Team Providers Care Horticultural Therapist Name Role Phone sAhley Quirogazac Shields APRN Primary Care Provider [phone] Encounter Details Date Type Department Care Team [...] [facility] Oncology [address] [place] [address] 05/12/2024 10:00 AM EDT Office Visit Hematology [place] [address] Markel Borjas MD [facility] DR HEMATOLOGY [place] [address] 03/01/2025 4:15 PM EDT Office Visit Dermatology at [place] [address] [facility] [place] [phone] Marek Bonilla MD [address] [facility] [place] [address] documented as of this encounter Visit Diagnoses Not on filedocumented in this encounter Care Teams Horticultural Therapist Relationship Specialty Start Date End Date Deborah Quiroga APRN PCP - General Family Medicine 03/24/16 02/04/23 documented as of this encounter
--- OUTSIDE RECORDS SUMMARY | 2024-05-11 14:40 | XMS_ITS | Encounter Summary ---
Author Organization [facility] Address [facility] [place] [address] Care Team Providers Care Shipping Assistant Name Role Phone Ashley Quirogazac Shields APRN Primary Care Provider [phone] Encounter Details Date Type Department Care Team [...] [facility] [place] [place] [address] [place] [address] 05/12/2024 10:00 AM EDT Office Visit [place]ology [place] [address] Markel Borjas MD [facility] [address] HEMAT[place]Y [place] [address] 03/01/2025 4:15 PM EDT Office Visit Dermatology at [place] [address] [facility] [place] [phone] Marek Bonilla MD 580 [facility] [address] [place] [address] documented as of this encounter Visit Diagnoses Not on filedocumented in this encounter Care Teams Shipping Assistant Relationship Specialty Start Date End Date Deborah Quiroga APRN PCP - General Family Medicine 03/24/16 02/04/23 documented as of this encounter
--- OUTSIDE RECORDS SUMMARY | 2024-05-11 14:40 | XMS_ITS | Encounter Summary ---
Author Organization [facility] Address [facility] [place] [address] Care Team Providers Care Felt Strip Finisher Name Role Phone Magdalena Acosta MD Primary Care Provider [phone] Encounter Details Date Type Department Care Team [...] [place] [place] [facility] [place] [address] [place] [address] 05/12/2024 10:00 AM EDT Office Visit Hematology [place] [address] Markel Borjas MD [facility] DR HEMATOLOGY [place] [address] 03/01/2025 4:15 PM EDT Office Visit Dermatology at [place] [address] [facility] [place] [phone] Marek Bonilla MD [address] [facility], [place] [address] documented as of this encounter Visit Diagnoses Not on filedocumented in this encounter Care Teams Felt Strip Finisher Relationship Specialty Start Date End Date Magdalena Acosta MD [address] [place] [address] PCP - General Family Medicine 02/05/23 documented as of this encounter
--- OUTSIDE RECORDS SUMMARY | 2024-05-11 14:40 | XMS_ITS | Encounter Summary ---
Author Organization [facility] [place] [address] Care Team Providers Care Manager Agricultural Name Role Phone Junaid Deborah Shields APRN Primary Care Provider [phone] Encounter Details Date Type Department Care Team (Latest Contact Info) Description 11/09/2022 10:37 AM EDT - 11/09/2022 4:53 PM EDT Hospital Encounter [place] [address] Nitesh Escobedo MD [facility] [place] [address] Aortic valve stenosis, etiology of cardiac valve [...] please contact your inpatient physician through the [facility] Fish Fryer . Issues afterhours and on weekends will be handled by the Hospitalist staff on-call. * Attachments The following attachments cannot be sent through Care Everywhere. * Coronary Angiogram: Post-op (Egyptian) * Right Heart Catheterization: Pulmonary Artery Catheterization: Post-op (Egyptian) documented in this encounter Medications at Time [...] MD - 11/09/2022 11:20 AM EDT . [facility] Interventional Cardiology Adult Pre-Procedure H&P Update: Cardiac Catheterization Purnima Thacker [id number] Chief Complaint: BONILLA HPI: Purnima Thacker [...] Marrero MD Interventional Cardiology 11/09/22 11:43 AM [facility] Pager: [phone] documented in this encounter Plan of Treatment Upcoming Encounters Date Type Department Care Team (Late st Contact Info) Description 05/12/2024 9:00 AM EDT Laboratory Appointment Lab at [facility] Hematology Oncology [address] [place], [place] [phone] 05/12/2024 10:00 AM EDT Office Visit [place] [address] Markel Borjas MD [facility] [address] [place] [address] 03/01/2025 4:15 PM EDT Office Visit Dermatology at [place] [address] [place] [address] Marek Bonilla MD [address] [place] [address] documented as of this encounter Procedures Procedure Name Priority Date/Time Associated Diagnosis Comments CARDIAC CATHETERIZATION Routine 11/10/19 23 1:05 PM EDT Aortic valve stenosis, etiology of cardiac valve disease unspecified Cath Plmt Left Heart Cath & Arts W/Inj & Angio Img S&I ([id number]) 11/09/2022 11:51 AM EDT Aortic valve stenosis, etiology of cardiac valve disease unspecified EKG 12-LEAD Routine 11/09/2022 11:17 AM EDT Aortic valve stenosis, etiology of cardiac valve disease unspecified documented in this encounter Results * CARDIAC CATHETERIZATION (11/09/2022 1:05 PM EDT) Anatomical Region Laterality Modality Other Narrative 11/09/2022 2:01 PM EDT ?[facility] ? Cardiac Catheterization/Intervention Report ? Patient Name: Kirstie, Purnima M. ? Procedure Date: 11/09/2022 ? A #: [id number] ? Primary Physician: Nitesh Escobedo ? Case #: [id number] ? File Name: [id number] ? Catheterization Order Number: [id number] ? [facility] ? Final Report [place], [place] ? Patient Name: ? Purnima M. Kirstie ? ID#: ?[id number] ? : ?1955 ? Procedure Date: ? November 09, 2022 ? Case #: ? [id number] ? Room: ? 1 ? Case Physician: [...] (Bezet) 457 ms MUSE SYSTEM Calculated P Mason 44 degrees MUSE SYSTEM Calculated R Mason 33 degrees MUSE SYSTEM Calculated T Mason 30 degrees MUSE SYSTEM INTERPRETATION Sinus rhythm Occasional Premature ventricular complexes Otherwise normal ECG When compared with ECG of 21-SEP-2016 12:26, Premature ventricular complexes are now Present MT interval has decreased Nonspecific T wave abnormality has replaced inverted T waves in Inferior leads I personally reviewed the tracing and edited the fellows interpretation Confirmed by fellow MD Anitha, Carissa ([id number]) on 11/09/2022 6:17:28 PM Confirmed by Elsa [...] MD) documented in this encounter Care Teams Manager Agricultural Relationship Specialty Start Date End Date Deborah Quiroga, LINE UP WORKER PCP - General Family Medicine 03/24/16 02/04/23 documented as of this encounter
--- OUTSIDE RECORDS SUMMARY | 2024-05-11 14:40 | XMS_ITS | Encounter Summary ---
Author Organization [facility] [place] [address] Care Team Providers Care Sports Teacher Name Role Phone Deborah Quiroga APRN Primary Care Provider [phone] Encounter Details Date Type Department Care Team (Latest Contact Info) Description 07/03/2022 12:28 PM EST - 07/03/2022 1:35 PM EST Hospital Encounter Hematology [place] [address] Chronic idiopathic neutropenia Discharge Disposition: Home Social [...] [facility] [address] [place] [address] 05/12/2024 10:00 AM EDT Office Visit Hematology [place] [address] Markel Borjas MD [facility] [address] [place] [address] 03/01/2025 4:15 PM EDT Office Visit Dermatology at [place] [address] [facility] [place] [phone] Marek Bonilla MD [address] [place] [address] documented as of this encounter Procedures Procedure [...] Absolute 2.61 1.70 - 6.10 x10(3)/mc L [facility] Lymph % 18.4 % [facility] Lymphocytes Abs 0.7(L) 0.9 - 3.2 x10(3)/mc L [facility] Monocyte % 8.4 % [facility] Monocyte Abs 0.3 0.3 - 0.9 x10(3)/mc L [facility] Eos % 0.0 % [facility] Eosinophils Abs 0.0 0.0 - 0.4 x10(3)/mc L [facility] Basophil % 0.3 % [facility] Baso Absolute 0.0 0.0 - 0.1 x10(3)/mc L [facility] Immature Gran % 0.00 % [facility] Comment: Immature granulocytes(IG's)percentage and absolute count will include metamyelocytes, myelocytes, and promyelocytes. Blood smears from CBCs yielding IG's will be scanned manually for concordance. If this scan disagrees with the automated IG or if promyelocytes are noted, a manual differential will be performed. Immature Gran Absolute 0.00 0.00 - 0.04 x10(3)/mc L [facility] Blood 07/03/2022 12:4 0 PM EST 07/03/2022 1:03 PM EST Narrative Resulting Agency Comment Spec In Lab Markel Borjas MD HEMATOLOGY ORDERAB LES [facility] [place] [address] * (ABNORMAL) Hemogram (07/03/2022 12:40 PM EST) White Blood Cell 3.6(L) 4.0 - 9.5 x10(3)/ L [facility] Red Blood Cell 3.61(L) 4.00 - 5.21 x10(6)/mc L [facility] Hemoglobin 11.7 11.7 - 15.5 g/dL [facility] Hematocrit 34.5(L) 35.7 - 45.8 % [facility] Mean Cell Volume 95.6(H) 82.6 - 94.4 fL [facility] Mean Cell Hemoglobin 32.4(H) 27.1 - 32.0 pg [facility] Mean Cell Hemoglobin Concentration 33.9 31.7 - 35.0 g/dL [facility] Platelet 171 145 - 357 x10(3)/mc L [facility] RDW Standard Deviation 40.5 37.0 - 46.0 fL [facility] RDW coefficient of variation 11.5 11.5 - 14.1 % [facility] Mean Platelet Volume 9.2 7.6 - 12.9 fL [facility] NRBC% auto 0.0 % [facility] NRBC Absolute 0.000 0.000 - 0.000 x10(3)/ L [facility] Blood 07/03/2022 12:4 0 PM EST 07/03/2022 1:03 PM EST Narrative Resulting Agency Comment Spec In Lab Markel Borjas MD HEMATOLOGY ORDERAB LES [facility] [place] [address] * (ABNORMAL) Comprehensive metabolic panel (non-fasting) (07/03/2022 [...] CHEMISTRY ORDERABL ES [facility] [place] [address] documented in this encounter Visit Diagnoses Diagnosis Chronic idiopathic neutropenia Other neutropenia Chronic idiopathic neutropenia Other neutropenia documented in this encounter Care Teams Sports Teacher Relationship Specialty Start Date End Date Deborah Quiroga APRN PCP - General Family Medicine 03/24/16 02/04/23 documented as of this encounter
--- OUTSIDE RECORDS SUMMARY | 2024-05-11 14:40 | XMS_ITS | Encounter Summary ---
Author Organization [facility] Address [facility] [place] [address] Care Team Providers Care Area Development Consultant Name Role Phone Ashley Quirogazac Shields APRN Primary Care Provider [phone] Encounter Details Date Type Department Care Team [...] [facility] [place] [address] [place] [address] 05/12/2024 10:00 AM EDT Office Visit Hematology [place] [address] Markel Borjas MD [facility] [address] HEMATOLOGY [place] [address] 03/01/2025 4:15 PM EDT Office Visit Dermatology at [place] [address] [facility] [place] [phone] Marek Bonilla MD [address] [facility] [address] [place] [address] documented as of this encounter Visit Diagnoses Not on filedocumented in this encounter Care Teams Area Development Consultant Relationship Specialty Start Date End Date Deborah Quiroga APRN PCP - General Family Medicine 03/24/16 02/04/23 documented as of this encounter
--- OUTSIDE RECORDS SUMMARY | 2024-05-11 14:40 | XMS_ITS | Encounter Summary ---
Author Organization [facility] Address [facility] [place] [address] Care Team Providers Care Multicultural Manager Name Role Phone Deborah Quiroga ANURAG Primary Care Provider [phone] Encounter Details Date Type Department Care Team (Late st Contact Info) Description 01/14/2023 Refill Dermatology at [address] [address] Lupe Connor RN Social History [...] She would like the medication called into [facility]. Discussed with Dr. [...] [facility] Hematology Oncology [address] [place] [address] 05/12/2024 10:00 AM EDT Office Visit Hematology [place] [address] Markel Borjas MD [facility] [address] HEMATOLOGY [place] [address] 03/01/2025 4:15 PM EDT Office Visit Dermatology at [place] [address] [place] [address] Marek Bonilla MD [address], [place] [address] documented as of this encounter Visit Diagnoses Not on filedocumented in this encounter Care Teams Multicultural Manager Relationship Specialty Start Date End Date Deborah Quiroga APRN PCP - General Family Medicine 03/24/16 02/04/23 documented as of this encounter
--- OUTSIDE RECORDS SUMMARY | 2024-05-11 14:40 | XMS_ITS | Encounter Summary ---
Author Organization [facility] [place] [address] Care Team Providers Care Supervisor Self Service Store Name Role Phone Magdalena Acosta MD Primary Care Provider [phone] Encounter Details Date Type Department Care Team (Latest Contact Info) Description 02/05/2023 9:33 PM EDT - 02/05/2023 11:59 PM EDT Hospital [place] [address] Discharge Disposition: Home Social History Tobacco Use [...] [facility] Hematology Oncology [address] [place] [address] 05/12/2024 10:00 AM EDT Office Visit [place]ology [place] [address] Markel Borjas MD [facility] [address] [place] [address] 03/01/2025 4:15 PM EDT Office Visit Dermatology at [place] [address] [facility] [place] [address] Marek Bonilla MD [address], [place] [address] documented as of this encounter Procedures Procedure Name Priority Date/Time Associated Diagnosis Comments SURGICAL PATHOLOGY REPORT Routine 02/05/2023 3:00 PM EDT documented in this encounter Results * Surgical Pathology Report (02/05/2023 3:00 PM EDT) Final Diagnosis [id number] ? Location: OPW The signing pathologist has (i) examined the relevant preparation(s) for the specimen(s) and (ii) rendered or confirmed the diagnosis(es). . ?Surgical Pathology DIAGNOSIS Left upper back, skin punch biopsy: - ??Compound dysplastic ??melanocytic nevus with moderate atypia, transected at peripheral specimen edges ?? (see discussion) Electronically signed by: ?Vanna CULP, Jesse Shields Verified: ??02/16/2023 8:04 ?? Dermatopathologist Performed at: ??-[facility] Dept. of Pathology, [place] [address] Digitizer Operator: Kunal Rubi MD, AP, ??CLIA Certificate: [id number] DISCUSSION If there is an obvious clinical [...] EDT Marek Bonilla MD PATHOLOGY/CYTOLOGY O REMI [facility] [place] [address] [facility] [place] [address] documented in this encounter Visit Diagnoses Not on filedocumented in this encounter Care Teams Supervisor Self Service Store Relationship Specialty Start Date End Date Magdalena Acosta MD [address] [place] [address] PCP - General Family Medicine 02/05/23 documented as of this encounter
--- OUTSIDE RECORDS SUMMARY | 2024-05-11 14:40 | XMS_ITS | Encounter Summary ---
Author Organization [facility] Address [facility] [place] [address] Care Team Providers Care Corporate Accounting Manager Name Role Phone Ashley Quiroagzac Shields APRN Primary Care Provider [phone] Reason for Referral * Consultation (Routine) - Closed Specialty Diagnoses / Procedures Referred By Contac t Referred To Contact Neurology Diagnoses Neck pain Popeye Rogers MD [facility] [place] [address] Kyra Haas MD [facility] [address] [address] Referral ID Status Reason Start Date Expiration Date V isits Requested Visits Authorized [id number] Closed Consult, Test & Treat 06/29/2022 06/29/2023 1 1 Reason for Visit * Reason Comments Neck Pain Weak in both arms, p ain and tingling in arms and hands Encounter Details Date Type Department Care Team (Late st Contact Info) Description 06/29/2022 10:20 AM EST Office Visit [place] [address] Popeye Rogers MD [facility] [place] [address] Neck pain Social History Tobacco Use Types [...] have EMG and nerve conduction studies in [place] that showed carpal tunnel syndrome. I do not have a copy of that report. documented in this encounter Plan of Treatment Upcoming Encounters Date Type Department Care Team (Late st Contact Info) Description 05/12/2024 9:00 AM EDT Laboratory Appointment Lab at [facility] [place] Oncology [address] [place] [address] 05/12/2024 10:00 AM EDT Office Visit [place] [address] Markel Borjas MD [facility] [address] HEMATOLOGY [place] [address] 03/01/2025 4:15 PM EDT Office Visit Dermatology at [address] [place] [address] Marek Bonilla MD [address] [facility], [place] [address] Scheduled Referrals Name Type Priority Associated Diagnoses Orde r Schedule Referral to Neurology Outpatient Referral Routine Neck pain Ordered: 06/29/2022 documented as of this encounter Visit Diagnoses Diagnosis Neck pain Cervicalgia Chronic idiopathic neutropenia Other neutropenia documented in this encounter Care Teams Corporate Accounting Manager Relationship Specialty Start Date End Date Deborah Quiroga APRN PCP - General Family Medicine 03/24/16 02/04/23 documented as of this encounter
--- OUTSIDE RECORDS SUMMARY | 2024-05-11 14:40 | XMS_ITS | Encounter Summary ---
Author Organization [facility] [place] [address] Care Team Providers Care Chin Strap Maker Name Role Phone Magdalena Acosta MD Primary Care Provider [phone] Encounter Details Date Type Department Care Team (Late st Contact Info) Description 03/29/2023 Orders Only Cardiology at [address] [phone] Ranjan Delgado MD [facility] [place] [address] Severe aortic stenosis (Primary Dx) Social History [...] [facility] [place] On[place] [address] [place] [phone] 05/12/2024 10:00 AM EDT Office Visit [place] [phone] Markel Borjas MD [facility] [address] [place] [address] 03/01/2025 4:15 PM EDT Office Visit Dermatology at [place] [address] [place] [address] Marek Bonilla MD [address], [place] [address] Scheduled Orders Name Type Priority Associated Diagnoses [...] neutropenia documented in this encounter Care Teams Chin Strap Maker Relationship Specialty Start Date End Date Magdalena Acosta MD [address] [place] [address] PCP - General Family Medicine 02/05/23 documented as of this encounter
--- OUTSIDE RECORDS SUMMARY | 2024-05-11 14:40 | XMS_ITS | Encounter Summary ---
Author Organization [facility] Address [facility] [place] [address] Care Team Providers Care Professor Of Theater Name Role Phone Magdalena Acosta MD Primary Care Provider [phone] Encounter Details Date Type Department Care Team [...] [facility] Hematology Oncology [address] [place] [address] 05/12/2024 10:00 AM EDT Office Visit [place] [address] Markel Borjas MD [facility] DR HEMATOLOGY [place] [address] 03/01/2025 4:15 PM EDT Office Visit Dermatology at [place] [address] [facility] [place] [address] Marek Bonilla MD [address] [facility], [place] [address] documented as of this encounter Visit Diagnoses Not on filedocumented in this encounter Care Teams Professor Of Theater Relationship Specialty Start Date End Date Magdalena Acosta MD [address] [place] [address] PCP - General Family Medicine 02/05/23 documented as of this encounter
--- OUTSIDE RECORDS SUMMARY | 2024-05-11 14:40 | XMS_ITS | Encounter Summary ---
Author Organization [facility] [place] [address] Care Team Providers Care Bi Data Architect Name Role Phone Deborah Quiroga APRN Primary Care Provider [phone] Reason for Referral * Consultation (Routine) - Closed Specialty Diagnoses / Procedures Referred By Crispin maxwell Referred To Contact Neurology Diagnoses Polyneuropathy Deborah Quiroga APRN [address] [facility] [address] [place] [address] [facility] Neurology [address] [place] [phone] Referral ID Status Reason Start Date Expiration Date V isits Requested Visits Authorized [id number] Closed Consult, Test & Treat 10/29/2022 10/29/2023 1 1 Encounter Details Date Type Department Care Team (Latest Contact Info) Description 10/29/2022 Transcribe Orders eDH Incoming Referrals [phone] Deborah Quiroga APRN [address] [facility] [address] [place] [address] Polyneuropathy (Primary Dx) Social History [...] [facility] Hematology Oncology [address] [place] [address] 05/12/2024 10:00 AM EDT Office Visit Hematology [place] [address] Markel Borjas MD [facility] [place] [address] 03/01/2025 4:15 PM EDT Office Visit Dermatology at [place] [address] [facility] [address] [place] [address] Marek Bonilla MD [address] [facility], QU[place] [address] Scheduled Referrals Name Type Priority Associated Diagnoses Orde r Schedule Referral to Neurology Outpatient Referral Routine Polyneuropathy Ordered: 10/29/2022 documented as of this encounter Visit Diagnoses Diagnosis Polyneuropathy- Primary Unspecified hereditary and idiopathic peripheral neuropathy Chronic idiopathic neutropenia Other neutropenia documented in this encounter Care Teams Bi Data Architect Relationship Specialty Start Date End Date Deborah Quiroga APRN PCP - General Family Medicine 03/24/16 02/04/23 documented as of this encounter
--- OUTSIDE RECORDS SUMMARY | 2024-05-11 14:40 | XMS_ITS | Encounter Summary ---
Author Organization [facility] Address [facility] [place] [address] Care Team Providers Care Steward/Stewardess Lounge Name Role Phone Magdalena Acosta MD Primary Care Provider [phone] Encounter Details Date Type Department Care Team [...] at [facility] [place]ology Oncology [address] [place] [address] 05/12/2024 10:00 AM EDT Office Visit [place]ematology [place] [address] Markel Borjas MD [facility] [address] HEMATOLOGY [place] [address] 03/01/2025 4:15 PM EDT Office Visit Dermatology at [place] [address] [facility] [place] [address] Marek Bonilla MD [address] [facility], [place] [address] documented as of this encounter Visit Diagnoses Not on filedocumented in this encounter Care Teams Steward/Stewardess Lounge Relationship Specialty Start Date End Date Magdalena Acosta MD [address] [place] [address] PCP - General Family Medicine 02/05/23 documented as of this encounter
--- OUTSIDE RECORDS SUMMARY | 2024-05-11 14:40 | XMS_ITS | Encounter Summary ---
Author Organization [facility] Address [facility] [place] [address] Care Team Providers Care Electrical Engineering Technologist Name Role Phone Magdalena Acosta MD Primary Care Provider [phone] Encounter Details Date Type Department Care Team [...] [facility] Hematology Oncology [address] [place] [address] 05/12/2024 10:00 AM EDT Office Visit Hematology [place] [address] Markel Borjas MD [facility] [address] HEMATOLOGY [place] [address] 03/01/2025 4:15 PM EDT Office Visit Dermatology at [place] [address] [facility] [place] [address] Marek Bonilla MD [address] [facility], [place] [address] documented as of this encounter Visit Diagnoses Not on filedocumented in this encounter Care Teams Electrical Engineering Technologist Relationship Specialty Start Date End Date Magdalena Acosta MD [address] [place] [address] PCP - General Family Medicine 02/05/23 documented as of this encounter
--- OUTSIDE RECORDS SUMMARY | 2024-05-11 14:40 | XMS_ITS | Encounter Summary ---
Author Organization [facility] Address [facility] [place] [address] Care Team Providers Care Locksmith Name Role Phone Deborah Quiroga APRN Primary Care Provider [phone] Reason for Visit * Reason Comments Follow-up Encounter Details Date Type Department Care Team (Late st Contact Info) Description 07/03/2022 1:30 PM EST Office Visit Hematology [place] [address] Markel Borjas MD [facility] DR HEMATOLOGY [place] [address] Consuelo Sommer APRN [facility] DR HEMATOLOGY [place] [address] Chronic idiopathic neutropenia; Dysuria Social History Tobacco [...] 07/03/2022 1:30 PM EST Hematology Outpatient Clinic [facility] Hematology Outpatient Consult Note CC: [id number] [...] TOUCH PREP, CLOT SECTION, CORE ??BIOPSY); [OSR# [id number], COLLECTED 06/23/2016, 19 SLIDES]: ?1. ??Normocellular marrow [...] a clonal lymphoproliferative or myeloproliferative disorder (OSR# [id number]) Chromosome analysis on the marrow aspirate revealed [...] at [facility] in [place] department Plays competitive scrabble, and goes to [employer] Family History: No known primary marrow [...] intact. Extremities: No edema. Labs: Hgb= 11.7 Epbz=713 ANC= 2.5 Imaging As above - reviewed [...] [facility] Hematology Oncology [address] [place] [address] 05/12/2024 10:00 AM EDT Office Visit [place]ematology [place] [address] Markel Borjas MD [facility] DR HEMATOLOGY [place] [address] 03/01/2025 4:15 PM EDT Office Visit Dermatology at [place] [address] [facility] [address] Marek Bonilla MD [address] [facility], [place] [address] documented as of this encounter Procedures Procedure [...] tract infection, submit a new specimen. (A) [facility] Clean Catch Urine 07/03/2022 2:00 PM EST 07/03/2022 5:55 PM EST Narrative Resulting Agency Comment Spec In Lab Markel Borjas MD MICROBIOLOGY - GEN ERAL ORDERABLES Performing Organization Address City/[facility]/ZIP Co de Phone Number [facility] [place] [address] * (ABNORMAL) Urinalysis Microscopic Exam (07/03/2022 2:00 PM EST) RBC, Urine 2 0 - 4 /HPF [facility] WBC, Urine 14(H) 0 - 5 /HPF [facility] Bacteria, Urine Occasional (A) None /HPF [facility] Squamous Epithelial Cells Raw Data, Urine 12(H) <=4 /HPF [facility] Hyaline Casts, Urine 2 0 - 2 /LPF [facility] Clean Catch Urine 07/03/2022 2:00 PM EST 07/03/2022 2:29 PM EST Narrative Resulting Agency Comment Spec In Lab Markel Borjas MD URINE ORDERABLES Performing Organization Address City/[facility]/ZIP Co de Phone Number [facility] [place] [address] * (ABNORMAL) Urinalysis with reflex Culture (07/03/2022 2:00 PM EST) Glucose, Urine Dipstick Negative Negative mg/dL [facility] Protein, Urine Dipstick 30(A) Negative mg/dL [facility] Bilirubin, Urine Dipstick Negative Negative mg/dL [facility] Comment: Clinical correlation required for positive Urine Bilirubin results as false positive may occur with some drugs and drug related products. If a false positive is suspected a serum total bilirubin should be considered if clinically indicated. Urobilinogen, Urine Dipstick Normal Normal mg/dL [facility] pH, Urn (dipstick) 5.5 5.0 - 8.0 [facility] Blood, Urine Dipstick Negative Negative mg/dL [facility] Ketone, Urine Dipstick Trace(A) Negative mg/dL [facility] Nitrite, Urine Dipstick Negative Negative [facility] Leukocytes, Urine Dipstick Small(A) Negative [facility] Appearance, Urine Dipstick Clear Clear [facility] Specific [place] Urine Automated 1.022 1.005 - 1.030 [facility] Color, Urine Dipstick Yellow Yellow [facility] Reflex to Culture Yes [facility] Clean Catch Urine 07/03/2022 2:00 PM EST 07/03/2022 2:29 PM EST Narrative Resulting Agency Comment Spec In Lab Markel Borjas MD URINE ORDERABLES [facility] [place] [address] * (ABNORMAL) Comprehensive metabolic panel (non-fasting) (07/03/2022 12:40 PM EST) Glucose 92 65 - 199 mg/dL [facility] Comment:Diabetes: >=200 mg/d L plus symptoms Blood Urea Nitrogen 22(H) 8 - 18 mg/dL [facility] Creatinine 0.80 0.70 - 1.20 mg/dL [facility] Sodium 139 135 - 145 mmol/L [facility] [...] questions. Chloride 105 98 - 107 mmol/L [facility] Carbon Dioxide 23 22 - 31 mmol/L [facility] Anion Gap 11 5 - 15 mmol/L [facility] Calcium 10.1 8.5 - 10.5 mg/dL [facility] Protein, Total 7.6 6.1 - 8.0 g/dL [facility] Albumin 4.1 3.2 - 5.2 g/dL [facility] Aspartate Aminotransferase 25 0 - 30 unit/L [facility] Alanine Aminotransferase 14 0 - 30 unit/L [facility] Alkaline Phosphatase 80 35 - 105 unit/L [facility] Bilirubin, Total 0.3 0.2 - 1.3 mg/dL [facility] Est Glomerular Filtration Rate 81 >=60 mL/min/1. 73 m?? [facility] [...] Lab Markel Borjas MD CHEMISTRY ORDERABL ES [facility] [place] [address] documented in this encounter Visit Diagnoses Diagnosis Chronic idiopathic neutropenia Other neutropenia Dysuria Chronic idiopathic neutropenia Other neutropenia documented in this encounter Care Teams Locksmith Relationship Specialty Start Date End Date Deborah Quiroga, SUPERVISOR TAPING PCP - General Family Medicine 03/24/16 02/04/23 documented as of this encounter
--- OUTSIDE RECORDS SUMMARY | 2024-05-11 14:40 | XMS_ITS | Encounter Summary ---
Author Organization [facility] [place] [address] Care Team Providers Care Churn Drill Operator Name Role Phone Magdalena Acosta MD Primary Care Provider [phone] Encounter Details Date Type Department Care Team (Late st Contact Info) Description 05/08/2023 [place] [phone] Luis Felipe Ott MD [facility] [place] [address] Social History Tobacco Use Types Packs/Day Years [...] 0426 Referring Provider: Nitesh Baltazar Patient Location: [facility] Presenting Symptoms per OSH: 67 year [...] diuresis with IV furosemide 20 x 1 ([id number]/47 at rheumatology appointment), SpO2 85% on RA -> 95% on 2L NC, HR 120s. Examination significant for decreased breath sounds at the bases. Pertinent Diagnostic Findings: CBC - Hgb 10.5 CMP - Cr 1.1 BNP 73106 HsTrop 1358 Lactate 1.6 D-dimer 1183, CTPE pending CXR demonstrated pulmonary vascular congestion US showed bilateral b lines Bedside echo reportedly similar to prior TTE for LV function OSH Interventions: ASA 324 Heparin gtt Plan: Transfer to [facility] Above recommendations/plans are based on my conversation with the referring provider. I have not personally interviewed or examined this patient. Luis Felipe Ott MD Ambulatory Service Representative Received a call from provider emergently at 715am. Mentating well and BP 87/53. HR 108 and diursingwell. They were about to start phenylephrine which I stressed was not a good option given concern for severe and increasing afterload. She is warm on exam, mentating and urinating and we do not need to amrit a BP if those things remain stable. Nico Segura, PGY-6 Ambulatory Service Representative [id number] documented in this encounter Plan of Treatment Upcoming Encounters Date Type Department Care Team (Late st Contact Info) Description 05/12/2024 9:00 AM EDT Laboratory Appointment Lab at [facility] Hematology Oncology [address] [place] [address] 05/12/2024 10:00 AM EDT Office Visit Hematology [place] [address] Markel Borjas MD [facility] [place] [address] 03/01/2025 4:15 PM EDT Office Visit Dermatology at [place] [address] [place] [address] Marek Bonilla MD [address] [facility] [address] [facility] [address] [place] [address] documented as of this encounter Visit Diagnoses Not on filedocumented in this encounter Care Teams Churn Drill Operator Relationship Specialty Start Date End Date Magdalena Acosta MD [address] [place] [address] PCP - General Family Medicine 02/05/23 documented as of this encounter
--- OUTSIDE RECORDS SUMMARY | 2024-05-11 14:40 | XMS_ITS | Encounter Summary ---
[place] [address] Care Team Providers Care Dock Boss Name Role Phone Magdalena Acosta MD Primary Care Provider [phone] Reason for Visit * Reason Comments Annual Exam Encounter Details Date Type Department Care Team (Late st Contact Info) Description 02/05/2023 2:30 PM EDT Office Visit Dermatology at [address] [address] Marek Bonilla MD [address] [facility] [place] [address] Rosacea; Ocular rosacea; Nevus Social History Tobacco [...] cutaneous and ocular 2. Previously told by filemaker developer that she had corneal tears from her [...] [facility] [place] Oncology [address] [place] [address] 05/12/2024 10:00 AM EDT Office Visit [place] [address] Markel Borjas MD [facility] [address] [place] [address] 03/01/2025 4:15 PM EDT Office Visit Dermatology at [place] [address] [place] [address] Marek Bonilla MD [address] [facility] [place] [address] documented as of this encounter Visit Diagnoses Diagnosis Rosacea Ocular rosacea Rosacea Nevus Benign neoplasm of skin, site unspecified Chronic idiopathic neutropenia Other neutropenia documented in this encounter Care Teams Dock Boss Relationship Specialty Start Date End Date Magdalena Acosta MD [address] [place] [address] PCP - General Family Medicine 02/05/23 documented as of this encounter
--- OUTSIDE RECORDS SUMMARY | 2024-05-11 14:40 | XMS_ITS | Encounter Summary ---
[place] [address] Care Team Providers Care Unemployment Inspector Name Role Phone Magdalena Acosta MD Primary Care Provider [phone] Reason for Visit * Reason Comments Skin Lesion Encounter Details Date Type Department Care Team (Late st Contact Info) Description 04/20/2023 10:00 AM EDT Office Visit Dermatology at [address] [address] Marek Bonilla MD [address] [facility] [address] Seborrheic keratosis Social History Tobacco Use Types [...] cutaneous and ocular 3. Previously told by music director that she had corneal tears from [...] at [facility] [place]emat[place] Oncology [address] [place] [address] 05/12/2024 10:00 AM EDT Office Visit Hematology [place] [address] Markel Borjas MD [facility] [address] [place] [address] 03/01/2025 4:15 PM EDT Office Visit Dermatology at [address] [place] [address] Marek Bonilla MD [address] [facility] [address] documented as of this encounter Visit Diagnoses Diagnosis Seborrheic keratosis Other seborrheic keratosis Chronic idiopathic neutropenia Other neutropenia documented in this encounter Care Teams Unemployment Inspector Relationship Specialty Start Date End Date Magdalena Acosta MD [address] [place] [address] PCP - General Family Medicine 02/05/23 documented as of this encounter
--- OUTSIDE RECORDS SUMMARY | 2024-05-11 14:41 | XMS_ITS | Encounter Summary ---
Author Organization [facility] Address [facility] [place] [address] Care Team Providers Care Display Specialist Name Role Phone Deborah Quiroga ANURAG Primary Care Provider [phone] Encounter Details Date Type Department Care Team (Late st Contact Info) Description 06/18/2017 External Results Hematology [place] [phone] Alexandrea Greenwood RN Neutropenia, unspecified type Social [...] [facility] [place] [address] [place] [address] 05/12/2024 10:00 AM EDT Office Visit Hematology [place] [address] Markel Borjas MD [facility] [place] [address] 03/01/2025 4:15 PM EDT Office Visit Dermatology at [address] [address] Marek Bonilla MD [address], [place] [address] documented as of this encounter Procedures Procedure Name Priority Date/Time Associated Diagnosis Comments CBC (WITH DIFF) Routine 06/11/2017 1:19 PM EST Neutropenia, unspecified type COMPREHENSIVE METABOLIC PANEL Routine 06/11/2017 1:19 PM EST Neutropenia, unspecified type documented in this encounter Results * Comprehensive metabolic panel (non-fasting) (06/11/2017 1:19 PM EST) Pathologist [facility] Blood Urea Nitrogen 13 7 [...] neutropenia documented in this encounter Care Teams Display Specialist Relationship Specialty Start Date End Date Deborah Quiroga, AGRICULTURAL EDUCATION TEACHER PCP - General Family Medicine 03/24/16 02/04/23 documented as of this encounter
--- OUTSIDE RECORDS SUMMARY | 2024-05-11 14:41 | XMS_ITS | Encounter Summary ---
Author Organization [facility] [place] [address] Care Team Providers Care Director Clinical Applications Name Role Phone Deborah Quiroga APRN Primary Care Provider [phone] Encounter Details Date Type Department Care Team (Late st Contact Info) Description 06/05/2021 Interpretation Only [address] [address] Deborah Quiroga APRN [address] [phone] Social History Tobacco Use Types Packs/Day Years [...] [facility] Hematology Oncology [address] [place] [address] 05/12/2024 10:00 AM EDT Office Visit [place] [address] Markel Borjas MD [facility] DR [place] [address] 03/01/2025 4:15 PM EDT Office Visit Dermatology at [place] [address] [place] [address] Marek Bonilla MD [address] [address], [place] [address] documented as of this encounter Procedures Procedure Name Priority Date/Time Associated Diagnosis Comments DXA CENTRAL SPINE, HIP, AND/OR WHOLE BODY (GENERIC) Routine 06/05/2021 11:58 AM EDT documented in this encounter Results * DXA Central Spine, Hip, and/or Whole Body (Generic) (06/05/2021 11:58 AM EDT) PT CLASS O RAD ADMITDTTM RAD PT RAD INFO [id number]^E VERETT^DEBORAH ^E RAD EXAM DESC XDXAC^DEXA SCAN [...] have questions please contact the health rn care manager that requested your imaging first. ? Electronically signed by: Rocael Villatoro MD, [facility] ([phone]), at 06/05/2021 12:00 PM Narrative 06/05/2021 12:00 [...] who have questions please contactthe health rn care manager that requested your imaging first. Deborah LLAMAS DEXA ORDERABLES documented in this encounter Visit Diagnoses Not on filedocumented in this encounter Care Teams Director Clinical Applications Relationship Specialty Start Date End Date Deborah Quiroga APRN PCP - General Family Medicine 03/24/16 02/04/23 documented as of this encounter
--- OUTSIDE RECORDS SUMMARY | 2024-05-11 14:41 | XMS_ITS | Encounter Summary ---
Author Organization [facility] Address [facility] [place] [address] Care Team Providers Care Thermodynamics Professor Name Role Phone Ashley Quirogan Cornelius ANURAG Primary Care Provider [phone] Encounter Details Date Type Department Care Team (Late st Contact Info) Description 03/04/2020 External Results [place]ology [place] [phone] TherBhumi villela Social History Tobacco Use Types [...] [facility] Hematology Oncology [address] [place] [address] 05/12/2024 10:00 AM EDT Office Visit [place]ematology [place] [phone] Markel Borjas MD [facility] [address] HEMATOLOGY [place] [address] 03/01/2025 4:15 PM EDT Office Visit Dermatology at [address] [phone] Marek Bonilla MD [address] [facility], [place] [address] documented as of this encounter Procedures Procedure [...] Provider HEMATOLOGY ORDERA BLES Performing Organization Address City/State/[facility] Co de Phone Number EXTERNAL LAB documented in this encounter Visit Diagnoses Not on filedocumented in this encounter Care Teams Thermodynamics Professor Relationship Specialty Start Date End Date Deborah Quiroga, FLEXIBLE MACHINING SYSTEM MACHINIST PCP - General Family Medicine 03/24/16 02/04/23 documented as of this encounter
--- OUTSIDE RECORDS SUMMARY | 2024-05-11 14:41 | XMS_ITS | Encounter Summary ---
Author Organization [facility] Address [facility] [place] [address] Care Team Providers Care Home Health Care Social Worker Name Role Phone Junaid Deborah Shields APRN Primary Care Provider [phone] Reason for Visit * Reason Comments Schedule Office Case Pain right leg Encounter Details Date Type Department Care Team (Late st Contact Info) Description 12/11/2016 9:00 AM EDT Office Visit [place]ology [place] [address] Markel Borjas MD [facility] [address] HEMATOLOGY [place] [address] Neutropenia, unspecified type Social History Tobacco Use [...] TOUCH PREP, CLOT SECTION, CORE ??BIOPSY); [OSR# [id number], COLLECTED 06/23/2016, 19 SLIDES]: ?1. 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 Extremities: No edema. Labs: Hgb= 13 Gorh=321 ANC= 0.5 Imaging As above - reviewed [...] at [facility] Hematology Oncology [address] [place] [address] 05/12/2024 10:00 AM EDT Office Visit [place] [address] Markel Borjas MD [facility] [address] HEMATOLOGY [place] [address] 03/01/2025 4:15 PM EDT Office Visit Dermatology at [place] [address] [place] [address] Marek Bonilla MD [address] [facility] [place] [address] documented as of this encounter Results * [...] neutropenia documented in this encounter Care Teams Home Health Care Social Worker Relationship Specialty Start Date End Date Deborah Quiroga, SAFETY INSPECTOR PCP - General Family Medicine 03/24/16 02/04/23 documented as of this encounter
--- OUTSIDE RECORDS SUMMARY | 2024-05-11 14:41 | XMS_ITS | Encounter Summary ---
[place] [address] Care Team Providers Care Photogeologist Name Role Phone Ashley Quirogan Cornelius ANURAG Primary Care Provider [phone] Reason for Visit * Reason Comments Skin Check Encounter Details Date Type Department Care Team (Late st Contact Info) Description 11/11/2020 10:45 AM EDT Office Visit Dermatology at [address] [place] [address] Marek Bonilla MD [address] [facility], [place] A DERMATOLOGY [place], [place] [address] Rosacea; Acrochordon Social History Tobacco Use Types [...] Discussed the possibility of getting this through [facility] or from the [facility] if necessary. She has not yet [...] [facility] [place] [address] [place] [address] 05/12/2024 10:00 AM EDT Office Visit [place] [address] Markel Borjas MD [facility] [address] HEMATOLOGY [place] [address] 03/01/2025 4:15 PM EDT Office Visit Dermatology at [place] [address] [facility] [place] [address] Marek Bonilla MD [address] [facility] [address], [place] [address] documented as of this encounter Visit Diagnoses Diagnosis Rosacea Acrochordon Unspecified hypertrophic and atrophic condition of skin Chronic idiopathic neutropenia Other neutropenia documented in this encounter Care Teams Photogeologist Relationship Specialty Start Date End Date Deborah Quiroga APRN PCP - General Family Medicine 03/24/16 02/04/23 documented as of this encounter
--- OUTSIDE RECORDS SUMMARY | 2024-05-11 14:41 | XMS_ITS | Encounter Summary ---
Author Organization [facility] [place] [address] Care Team Providers Care Manager User Experience Name Role Phone Ashley Quirogan Cornelius ANURAG Primary Care Provider [phone] Encounter Details Date Type Department Care Team (Late st Contact Info) Description 02/06/2020 Orders Only [place] [phone] Markel Borjas MD [facility] [address] [place] [address] Neutropenia, unspecified type Social History Tobacco Use [...] [facility] Hematology Oncology [address] [place] [address] 05/12/2024 10:00 AM EDT Office Visit [place]ology [place] [address] Markel Borjas MD [facility] [address] [place] [address] 03/01/2025 4:15 PM EDT Office Visit Dermatology at [place] [address] [place] [address] Marek Bonilla MD [address] [facility] [address], [place] [address] documented as of this encounter Visit Diagnoses Diagnosis Neutropenia, unspecified type Chronic idiopathic neutropenia Other neutropenia documented in this encounter Care Teams Manager User Experience Relationship Specialty Start Date End Date Deborah Quiroga APRN PCP - General Family Medicine 03/24/16 02/04/23 documented as of this encounter
--- OUTSIDE RECORDS SUMMARY | 2024-05-11 14:41 | XMS_ITS | Encounter Summary ---
[place] [address] Care Team Providers Care Business Services Specialist Sales Name Role Phone Deborah Quiroga ANURAG Primary Care Provider [phone] Encounter Details Date Type Department Care Team (Late st Contact Info) Description 02/07/2020 Telephone Hematology [place] [address] Ellen Rios RN Social History Tobacco Use [...] 02/07/2020 12:59 PM EDT Message received from pathology secretary: Injection/Infusion Referral Services to be provided for pt are: CBC only at [facility]- Pt will go by 02/27 Orders faxed to [phone]). Spoke with pt. She will call [facility] directly to schedule a time that works for her. documented in this encounter Plan of Treatment Upcoming Encounters Date Type Department Care Team (Late st Contact Info) Description 05/12/2024 9:00 AM EDT Laboratory Appointment Lab at [facility] Hematology Oncology [address] [place] [address] 05/12/2024 10:00 AM EDT Office Visit Hematology [place] [address] Markel Borjas MD [facility] [address] [place] [address] 03/01/2025 4:15 PM EDT Office Visit Dermatology at [place] [address] [facility] [place] [address] Marek Bonilla MD [address] [facility] [address], [place] [address] documented as of this encounter Visit Diagnoses Not on filedocumented in this encounter Care Teams Business Services Specialist Sales Relationship Specialty Start Date End Date Deborah Quiroga APRN PCP - General Family Medicine 03/24/16 02/04/23 documented as of this encounter
--- OUTSIDE RECORDS SUMMARY | 2024-05-11 14:41 | XMS_ITS | Encounter Summary ---
Author Organization [facility] Address [facility] Erika [facility] [place] [address] Care Team Providers Care Wardrobe Mistress Name Role Phone Deborah Quiroga APRN Primary Care Provider [phone] Reason for Visit * Consultation (Routine) - Closed Specialty Diagnoses / Procedures Referred By Contkrystle t Referred To Contact Rheumatology Diagnoses Positive FRANCISCO (antinuclear antibody) Arthralgia, unspecified joint Sandy Wu APRN [address] [place] [address] [facility] Rhe[facility]ology [address] [place] [address] Referral ID Status Reason Start Date Expiration Date V isits Requested Visits Authorized [id number] Closed Consult, Test & Treat PCP Updated and/or Approved 01/01/2022 01/01/2023 6 6 Encounter Details Date Type Department Care Team (Latest Contact Info) Description 01/20/2022 10:00 AM EDT Office [place] [address] Raymond Loredo MD [facility] [place] [address] Rosacea; Raynaud's phenomenon without gangrene; [...] over radiocarpal or ulnocarpal joints. Hands: Normal paleontological helper and claw. SJC/TJC 0/0. Hips: Full motion, [...] [facility] [place] On[place] [address] [place] [address] 05/12/2024 10:00 AM EDT Office Visit Hematology [place] [address] Markel Borjas MD [facility] [address] [place] [address] 03/01/2025 4:15 PM EDT Office Visit Dermatology at [place] [address] [facility] [place] [address] Marek Bonilla MD [address] [facility], [place] [address] Scheduled Referrals Name Type Priority Associated Diagnoses [...] neutropenia documented in this encounter Care Teams Wardrobe Mistress Relationship Specialty Start Date End Date Deborah Quiroga APRN PCP - General Family Medicine 03/24/16 02/04/23 documented as of this encounter
--- OUTSIDE RECORDS SUMMARY | 2024-05-11 14:41 | XMS_ITS | Encounter Summary ---
[place] [address] Care Team Providers Care Mri Specialist Name Role Phone Ashley Quirogan Cornelius ANURAG Primary Care Provider [phone] Reason for Visit * Reason Comments Acrochordon Rosacea Encounter Details Date Type Department Care Team (Late st Contact Info) Description 12/05/2020 3:00 PM EDT Office Visit Dermatology at [address] [address] Marek Bonilla MD [address] [facility], [place] [address] Inflamed acrochordon Social History Tobacco Use Types [...] Lab at [facility] Hematology Oncology [address] [place] [address] 05/12/2024 10:00 AM EDT Office Visit Hematology [place] [address] Markel Borjas MD [facility] [address] [place] [address] 03/01/2025 4:15 PM EDT Office Visit Dermatology at [place] 580 [place] [address] Marek Bonilla MD [address] [facility], [place] [address] documented as of this encounter Visit Diagnoses Diagnosis Inflamed acrochordon Unspecified hypertrophic and atrophic condition of skin Chronic idiopathic neutropenia Other neutropenia documented in this encounter Care Teams Mri Specialist Relationship Specialty Start Date End Date Deborah Quiroga APRN PCP - General Family Medicine 03/24/16 02/04/23 documented as of this encounter
--- OUTSIDE RECORDS SUMMARY | 2024-05-11 14:41 | XMS_ITS | Encounter Summary ---
Author Organization [facility] [place] [address] Care Team Providers Care Prop Maker Name Role Phone Deborah Quiroga APRN Primary Care Provider [phone] Encounter Details Date Type Department Care Team (Late st Contact Info) Description 06/05/2021 Interpretation Only [address] [address] Deborah Quiroga APRN [address] [phone] Social History Tobacco Use Types Packs/Day Years [...] 9:00 AM EDT Laboratory Appointment Lab at [facility] Hematology Oncology [address] [place] [address] 05/12/2024 10:00 AM EDT Office Visit Hematology [place] [address] Markel Borjas MD [facility] DR [place] [address] 03/01/2025 4:15 PM EDT Office Visit Dermatology at [place] [address] [facility] [place] [address] Marek Bonilla MD [address] [facility] [address], [place] [address] documented as of this encounter Procedures Procedure Name Priority Date/Time Associated Diagnosis Comments MAMMO SCREENING CAD BILATERAL Routine 06/05/2021 11:42 AM EDT documented in this encounter Results * Mammo Screening Cad Bilateral (06/05/2021 11:42 AM EDT) PT CLASS O DH RAD ADMITDTTM DH RAD PT DH RAD INFO [id number]^EV ERETT^DEBORAH^E DH RAD EXAM DESC MADDSC^SCREEN MAMMO [...] by: Rocael Villatoro MD, [facility] ([phone]), at 06/05/2021 1:27 PM Narrative 06/05/2021 1:27 [...] childcare aide that requested your imaging first. Deborah Quiroga APRN IMG MAMMO ORDERABLE S documented in this encounter Visit Diagnoses Not on filedocumented in this encounter Care Teams Prop Maker Relationship Specialty Start Date End Date Deborah Quiroga APRN PCP - General Family Medicine 03/24/16 02/04/23 documented as of this encounter
--- OUTSIDE RECORDS SUMMARY | 2024-05-11 14:41 | XMS_ITS | Encounter Summary ---
[place] [address] Care Team Providers Care Office Administration Instructor Name Role Phone Deborah Quiroga APRN Primary Care Provider [phone] Reason for Referral * Consultation (Routine) - Closed Specialty Diagnoses / Procedures Referred By Contac t Referred To Contact Rheumatology Diagnoses Positive FRANCISCO (antinuclear antibody) Arthralgia, unspecified joint Sandy Wu APRN [address] [place] [address] [facility] Rheumatology [address] [place] [phone] Referral ID Status Reason Start Date Expiration Date V isits Requested Visits Authorized [id number] Closed Consult, Test & Treat PCP Updated and/or Approved 01/01/2022 01/01/2023 6 6 Encounter Details Date Type Department Care Team (Latest Contact Info) Description 01/01/2022 Transcribe Orders eDH Incoming Referrals [phone] Sandy Wu APRN [address] [place], [place] [id number] Positive FRANCISCO (antinuclear antibody); Arthralgia, unspecified joint [...] [facility] Hematology Oncology [address] [place] [address] 05/12/2024 10:00 AM EDT Office Visit Hematology [place] [address] Markel Borjas MD [facility] [address] [place] [address] 03/01/2025 4:15 PM EDT Office Visit Dermatology at [place] [address] [facility] [place] [address] Marek Bonilla MD [address], [place] [address] Scheduled Referrals Name Type Priority Associated Diagnoses Orde r Schedule Referral to Rheumatology Outpatient Referral Routine Positive FRANCISCO (antinuclear antibody) Arthralgia, unspecified joint Ordered: 01/01/2022 documented as of this encounter Visit Diagnoses Diagnosis Positive FRANCISCO (antinuclear antibody) Other and unspecified nonspecific immunological findings Arthralgia, unspecified joint Chronic idiopathic neutropenia Other neutropenia documented in this encounter Care Teams Office Administration Instructor Relationship Specialty Start Date End Date Deborah Quiroga APRN PCP - General Family Medicine 03/24/16 02/04/23 documented as of this encounter
--- OUTSIDE RECORDS SUMMARY | 2024-05-11 14:41 | XMS_ITS | Encounter Summary ---
Author Organization [facility] Address [facility] [place] [address] Care Team Providers Care Information And Data Architect Analyst Name Role Phone Deborah Quiroga APRN Primary Care Provider [phone] Encounter Details Date Type Department Care Team (Late st Contact Info) Description 06/18/2017 11:00 AM EST Office Visit Hematology [place] [address] Markel Borjas MD [facility] [address] HEMATOLOGY [place] [address] Neutropenia, unspecified type Social History Tobacco Use [...] 06/18/2017 11:00 AM EST Hematology Outpatient Clinic [facility] [...] TOUCH PREP, CLOT SECTION, CORE ??BIOPSY); [OSR# [id number], COLLECTED 06/23/2016, 19 SLIDES]: ?1. ??Normocellular marrow [...] a clonal lymphoproliferative or myeloproliferative disorder (OSR# [id number]) Chromosome analysis on the marrow aspirate revealed [...] working the same job and participating in [employer] patients. Past Medical/Surgical History: 1. Leukopenia -element of neutropenia, as noted above 2. Aortic Stenosis -severe -AVR surgery 3. Hypercholesterolemia 4. Depression 5. Hypertension 6. 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 Extremities: No edema. Labs: Hgb= 13 Dirn=011 ANC= 0.6 Imaging As above - reviewed [...] [facility] Hematology Oncology [address] [place] [address] 05/12/2024 10:00 AM EDT Office Visit Hematology [place] [address] Markel Borjas MD [facility] [address] HEMATOLOGY [place] [address] 03/01/2025 4:15 PM EDT Office Visit Dermatology at [place] [address] [place] [address] Marek Bonilla MD [address], [place] [address] documented as of this encounter Visit Diagnoses Diagnosis Neutropenia, unspecified type Chronic idiopathic neutropenia Other neutropenia documented in this encounter Care Teams Information And Data Architect Analyst Relationship Specialty Start Date End Date Deborah Quiroga APRN PCP - General Family Medicine 03/24/16 02/04/23 documented as of this encounter
--- OUTSIDE RECORDS SUMMARY | 2024-05-11 14:41 | XMS_ITS | Encounter Summary ---
Author Organization [facility] Address [facility] [place] [address] Care Team Providers Care Pediatric Critical Care Nurse Name Role Phone Deborah Quiroga ANURAG Primary Care Provider [phone] Encounter Details Date Type Department Care Team (Late Contact Info) Description 07/21/2017 Orders Only Hematology [place] [phone] Alexandrea Greenwood RN Other neutropenia Social History [...] [place] [facility] [place] [address] [place] [address] 05/12/2024 10:00 AM EDT Office Visit Hematology [place] [address] Markel Borjas MD [facility] HEMATOLOGY [place] [address] 03/01/2025 4:15 PM EDT Office Visit Dermatology at [address] [address] Marek Bonilla MD [address], [place] [address] documented as of this encounter Visit Diagnoses Diagnosis Other neutropenia Chronic idiopathic neutropenia Other neutropenia documented in this encounter Care Teams Pediatric Critical Care Nurse Relationship Specialty Start Date End Date Deborah Quiroga APRN PCP - General Family Medicine 03/24/16 02/04/23 documented as of this encounter
--- OUTSIDE RECORDS SUMMARY | 2024-05-11 14:41 | XMS_ITS | Encounter Summary ---
[place] [address] Care Team Providers Care Client Advocate Name Role Phone Ashley Quirogazac Shields APRN Primary Care Provider [phone] Reason for Visit * Reason Onset Date Comments Results 12/03/2016 Encounter Details Date Type Department Care Team (Late st Contact Info) Description 12/03/2016 Telephone Hematology [place] [address] Yudith Valentine, RN Results Social History Tobacco [...] EDT RN received call from Maddy at [facility] reporting critical WBC at 1.61, and ANC of 0.5. She will fax the full results to this office for program review director notified DR Borjas of above results documented in this encounter Plan of Treatment Upcoming Encounters Date Type Department Care Team (Late st Contact Info) Description 05/12/2024 9:00 AM EDT Laboratory Appointment Lab at [facility] Hematology Oncology [address] [place] [address] 05/12/2024 10:00 AM EDT Office Visit [place]ematology [place] [address] Markel Borjas MD [facility] [address] HEMATOLOGY [place] [address] 03/01/2025 4:15 PM EDT Office Visit Dermatology at [place] [address] [facility] [place] [address] Marek Bonilla MD [address], [place] Katherine [place] [address] documented as of this encounter Visit Diagnoses Not on filedocumented in this encounter Care Teams Client Advocate Relationship Specialty Start Date End Date Deborah Quiroga APRN PCP - General Family Medicine 03/24/16 02/04/23 documented as of this encounter
--- OUTSIDE RECORDS SUMMARY | 2024-05-11 14:41 | XMS_ITS | Encounter Summary ---
Author Organization [facility] Address [facility] [place] [address] Care Team Providers Care Health Coach Name Role Phone Deborah Quiroga APRN Primary Care Provider [phone] Encounter Details Date Type Department Care Team (Late st Contact Info) Description 03/01/2020 11:30 AM EDT Office Visit Hematology [place] [address] Patrick Borjas MD [facility] [address] [place] [address] Neutropenia, unspecified type Social History Tobacco Use [...] 03/01/2020 11:30 AM EDT Hematology Outpatient Clinic [facility] Hematology Outpatient Consult Note CC: 60 [...] TOUCH PREP, CLOT SECTION, CORE ??BIOPSY); [OSR# [id number], COLLECTED 06/23/2016, 19 SLIDES]: ?1. 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 Extremities: No edema. Labs: Hgb= 12.4 Vsli=289 ANC= 2.5 Imaging As above - reviewed [...] [facility] On[facility] [address] [place] [address] 05/12/2024 10:00 AM EDT Office Visit Hematology [place] [address] Patrick Borjas MD [facility] [address] [place] [address] 03/01/2025 4:15 PM EDT Office Visit Dermatology at [place] [address] [facility] [place] [address] Marek Bonilla MD [address], [place] [address] documented as of this encounter Visit Diagnoses Diagnosis Neutropenia, unspecified type Chronic idiopathic neutropenia Other neutropenia documented in this encounter Care Teams Health Coach Relationship Specialty Start Date End Date Deborah Quiroga APRN PCP - General Family Medicine 03/24/16 02/04/23 documented as of this encounter
--- OUTSIDE RECORDS SUMMARY | 2024-05-11 14:41 | XMS_ITS | Encounter Summary ---
Author Organization [facility] Address [facility] [place] [address] Care Team Providers Care Scallop Cutter Name Role Phone Deborah Quiroga APRN Primary Care Provider [phone] Encounter Details Date Type Department Care Team (Latest Contact Info) Description 10/14/2016 - 10/14/2016 11:59 PM EDT Hospital Encounter Radiology Library at [facility] [place] [address] Alirio Esparza MD Pain Discharge Disposition: Home [...] [facility] [place] [address] [place] [address] 05/12/2024 10:00 AM EDT Office Visit Hematology [place] [address] Markel Borjas MD [facility] [address] [place] [address] 03/01/2025 4:15 PM EDT Office Visit Dermatology at [place] [address] [facility] [place] [address] Marek Bonilla MD [address], [place] [address] documented as of this encounter Procedures Procedure [...] LIBRARY OR DERABLES Performing Organization Address City/State/[facility] Co de Phone Number [place], [place] documented in this encounter Visit Diagnoses Diagnosis Pain Generalized pain Chronic idiopathic neutropenia Other neutropenia documented in this encounter Care Teams Scallop Cutter Relationship Specialty Start Date End Date Deborah Quiroga, CHANNEL MARKETING MANAGER PCP - General Family Medicine 03/24/16 02/04/23 documented as of this encounter
--- OUTSIDE RECORDS SUMMARY | 2024-05-11 14:41 | XMS_ITS | Encounter Summary ---
[place] [address] Care Team Providers Care Harpsichord Maker Name Role Phone Junaid, Deborah Shields APRN Primary Care Provider [phone] Encounter Details Date Type Department Care Team (Late st Contact Info) Description 10/20/2016 11:20 AM EDT Office [place] [address] Alirio Esparza MD S/P AVR Social History [...] all of her postoperative tests done at [facility]. Her echo shows a well-seated valve. Her EF, for some reason, was read as in the 45% to 50% range. She had a normal EF to start. I think that will need to be repeated at [facility]. She has no perivalve [...] should continue to see Dr. Burrell, her laser beam color scanner operator at [facility]. cc: Dr. Burrell documented in this encounter Plan of Treatment Upcoming Encounters Date Type Department Care Team (Late st Contact Info) Description 05/12/2024 9:00 AM EDT Laboratory Appointment Lab at [facility] Hematology Oncology [address] [place] [address] 05/12/2024 10:00 AM EDT Office Visit Hematology [place] [address] Markel Borjas MD [facility] HEMATOLOGY [place] [address] 03/01/2025 4:15 PM EDT Office Visit Dermatology at [place] [address] [place] [address] Marek Bonilla MD [address], [place] [address] documented as of this encounter Visit Diagnoses Diagnosis S/P AVR Heart valve replaced by other means Chronic idiopathic neutropenia Other neutropenia documented in this encounter Care Teams Harpsichord Maker Relationship Specialty Start Date End Date Deborah Quiroga APRN PCP - General Family Medicine 03/24/16 02/04/23 documented as of this encounter
--- OUTSIDE RECORDS SUMMARY | 2024-05-11 14:41 | XMS_ITS | Encounter Summary ---
Author Organization [facility] Address [facility] Erika ló[place] [address] Care Team Providers Care Ceramic Tile Mechanic Name Role Phone Deborah Quiroga APRN Primary Care Provider [phone] Encounter Details Date Type Department Care Team (Late st Contact Info) Description 01/09/2022 Refill Dermatology at [address] [address] Lupe Connor RN Social History [...] Laboratory Appointment Lab at [facility] [place] [address] [place] [address] 05/12/2024 10:00 AM EDT Office Visit Hematology [place] [address] Markel Borjas MD [facility] [address] HEMATOLOGY [place] [address] 03/01/2025 4:15 PM EDT Office Visit Dermatology at [address] [address] Marek Bonilla MD [address], [place] [address] documented as of this encounter Visit Diagnoses Not on filedocumented in this encounter Care Teams Ceramic Tile Mechanic Relationship Specialty Start Date End Date Deborah Quiroga APRN PCP - General Family Medicine 03/24/16 02/04/23 documented as of this encounter
--- OUTSIDE RECORDS SUMMARY | 2024-05-11 14:41 | XMS_ITS | Encounter Summary ---
[place] [address] Care Team Providers Care Finish Rolls Operator Name Role Phone Ashley Quirogan Cornelius ANURAG Primary Care Provider [phone] Reason for Visit * Reason Onset Date Comments Medical Care Coordination 07/27/2017 Encounter Details Date Type Department Care Team (Late st Contact Info) Description 07/27/2017 Telephone Hematology [place] [address] Alexandrea Greenwood RN Medical Care Coordination Social [...] 07/27/2017 12:25 PM EST Message received from membership secretary: Injection/Infusion Referral Call placed to [facility] @ [phone] Spoke w/ GOVERNMENT SERVICES PROFESSIONAL Services to be provided for pt are: CBC/CMP DONE Q6 MONTHS X2 STARTING NOVEMBER 2017 TECH confirmed they would provide services to pt - I CALLED PT, LM. Pt orders faxed to [phone] documented in this encounter Plan of Treatment Upcoming Encounters Date Type Department Care Team (Late st Contact Info) Description 05/12/2024 9:00 AM EDT Laboratory Appointment Lab at [facility] Hematology Oncology [address] [place] [address] 05/12/2024 10:00 AM EDT Office Visit Hematology [place] [address] Markel Borjas MD [facility] [address] HEMATOLOGY [place] [address] 03/01/2025 4:15 PM EDT Office Visit Dermatology at [place] [address] [place] [address] Marek Bonilla MD [address], [place] [address] documented as of this encounter Visit Diagnoses Not on filedocumented in this encounter Care Teams Finish Rolls Operator Relationship Specialty Start Date End Date Deborah Quiroga APRN PCP - General Family Medicine 03/24/16 02/04/23 documented as of this encounter
--- OUTSIDE RECORDS SUMMARY | 2024-05-11 14:41 | XMS_ITS | Encounter Summary ---
[place] [address] Care Team Providers Care Rodent Exterminator Name Role Phone Ashley Quirogazac Shields APRN Primary Care Provider [phone] Reason for Visit * Reason Comments Annual Exam Encounter Details Date Type Department Care Team (Late st Contact Info) Description 01/09/2022 3:15 PM EDT Office Visit Dermatology at [address] [address] Marek Bonilla MD [address] [facility], QU[place] A DERMATOLOGY [place], [place] [address] Rosacea Social History Tobacco Use Types Packs/Day [...] cutaneous and ocular 2. Previously told by tissue specialist that she had corneal tears from her [...] refills. We will call this into her [facility] in [place] 3. Continue metronidazole 0.75% gel applying every [...] [facility] [place] Oncology [address] [place] [address] 05/12/2024 10:00 AM EDT Office Visit [place]ology [place] [address] Markel Borjas MD [facility] [address] HEMATOLOGY [place] [address] 03/01/2025 4:15 PM EDT Office Visit Dermatology at [place] [address] [facility] [place] [address] Marek Bonilla MD [address] [facility], [place] [address] documented as of this encounter Visit Diagnoses Diagnosis Rosacea Chronic idiopathic neutropenia Other neutropenia documented in this encounter Care Teams Rodent Exterminator Relationship Specialty Start Date End Date Deborah Quiroga APRN PCP - General Family Medicine 03/24/16 02/04/23 documented as of this encounter
--- OUTSIDE RECORDS SUMMARY | 2024-05-11 14:41 | XMS_ITS | Encounter Summary ---
Author Organization [facility] Address [facility] [place] [address] Care Team Providers Care Director Strategic Account Management Name Role Phone Deborah Quiroga APRN Primary Care Provider [phone] Encounter Details Date Type Department Care Team (Late st Contact Info) Description 12/04/2016 External Results Hematology [place] [address] Teresa Dodson RN Social History Tobacco Use [...] [facility] Hematology Oncology [address] [place] [address] 05/12/2024 10:00 AM EDT Office Visit [place] [address] Markel Borjas MD [facility] [place] [address] 03/01/2025 4:15 PM EDT Office Visit Dermatology at [address] [phone] Marek Bonilla MD [address], [place] [address] documented as of this encounter Procedures Procedure Name Priority Date/Time Associated Diagnosis Comments CBC (WITH DIFF) Routine 12/03/2016 11:35 AM EDT COMPREHENSIVE METABOLIC PANEL Routine 12/03/2016 11:35 AM EDT documented in this encounter Results * (ABNORMAL) Comprehensive metabolic panel (non-fasting) (12/03/2016 11:35 AM EDT) Glucose 85(Roll Line Operator al Lab) Blood Urea Nitrogen 11(Roll Line Operator al Lab) Creatinine 0.93(Exte rnal Lab) Sodium 140(Exter nal Lab) Potassium 4.2(Exter nal Lab) Chloride 104(Exter nal Lab) Calcium 10.0(Exte rnal Lab) Protein, Total 8.1(Exter nal Lab) Albumin 3.5(Exter nal Lab) Bilirubin, Total 0.25(Exte rnal Lab) Alkaline Phosphatase 96(Roll Line Operator al Lab) Aspartate Aminotransferase 18(Roll Line Operator al Lab) Alanine Aminotransferase 21(Roll Line Operator al Lab) Blood specimen (specimen) 12/03/2016 11:35 AM EDT Historical Provider CHEMISTRY ORDERAB LES * (ABNORMAL) CBC (with Diff) (12/03/2016 11:35 AM EDT) White Blood Cell 1.61(EXTER NAL/ABN) 4.4 - 10.8 Hemoglobin 13.0(Exter nal Lab) Hematocrit 39.8(Exter nal Lab) Platelet 248(Roll Line Operator al Lab) Neutrophil Absolute (ANC) - Automated 0.5(HAT BLOCKER AL/ABN) Blood specimen (specimen) 12/03/2016 11:35 AM EDT Historical Provider HEMATOLOGY ORDERA BLES documented in this encounter Visit Diagnoses Not on filedocumented in this encounter Care Teams Director Strategic Account Management Relationship Specialty Start Date End Date Deborah Quiroga, ANURAG PCP - General Family Medicine 03/24/16 02/04/23 documented as of this encounter
--- OUTSIDE RECORDS SUMMARY | 2024-05-11 14:41 | XMS_ITS | Encounter Summary ---
Author Organization [facility] [place] [address] Care Team Providers Care Director Summer Sessions Name Role Phone Deborah Quiroga APRN Primary Care Provider [phone] Encounter Details Date Type Department Care Team (Late st Contact Info) Description 06/08/2022 Ancillary Procedure Radiology Library at [facility] [place] [address] Deborah Quiroga APRN [address] [place] [address] Social History Tobacco Use Types Packs/Day [...] [facility] On[facility] [address] [place] [address] 05/12/2024 10:00 AM EDT Office Visit Hematology [place] [address] Markel Borjas MD [facility] [place] [address] 03/01/2025 4:15 PM EDT Office Visit Dermatology at [place] [address] [place] [address] Marek Bonilla MD [address], [place] [address] documented as of this encounter Procedures Procedure Name Priority Date/Time Associated Diagnosis Comments FILM LIBRARY STORAGE ONLY DX SPINE Routine 06/08/2022 12:00 AM EST documented in this encounter Results * Film Library- Storage Only DX Spine (06/08/2022 12:00 AM EST) Narrative [facility] - 06/18/2022 10:57 AM EST This exam is auto-finalizing. It's purpose is for storage only. Deborah Quiroga APRN IMG FILM LIBRARY OR DERABLES Performing Organization Address City/State/[facility] de Phone Number [place], [place] documented in this encounter Visit Diagnoses Not on filedocumented in this encounter Care Teams Director Summer Sessions Relationship Specialty Start Date End Date Deborah Quiroga APRN PCP - General Family Medicine 03/24/16 02/04/23 documented as of this encounter
--- OUTSIDE RECORDS SUMMARY | 2024-05-11 14:41 | XMS_ITS | Encounter Summary ---
Author Organization [facility] [place] [address] Care Team Providers Care Salon Sales Consultant Name Role Phone Deborah Quiroga APRN Primary Care Provider [phone] Encounter Details Date Type Department Care Team (Late st Contact Info) Description 06/05/2021 Interpretation Only [address] [address] Deborah Quiroga APRN [address] [phone] Social History Tobacco Use Types Packs/Day Years [...] [facility] Hematology Oncology [address] [place] [address] 05/12/2024 10:00 AM EDT Office Visit Hematology [place] [address] Markel Borjas MD [facility] [address] [place] [address] 03/01/2025 4:15 PM EDT Office Visit Dermatology at [place] [address] [place] [address] Marek Bonilla MD [address], [place] [address] documented as of this encounter Procedures Procedure Name Priority Date/Time Associated Diagnosis Comments MAMMO SCREENING CAD AND CATRACHITO BILATERAL Routine 06/05/2021 11:42 AM EDT documented in this encounter Results * Mammo Screening Cad and Catrachito Bilateral (06/05/2021 11:42 AM EDT) PT CLASS O DH RAD ADMITDTTM DH RAD PT DH RAD INFO [id number]^EVERET T^DEBORAH^E DH RAD EXAM DESC MADDSCTO^BREAST SCREEN [...] by: Rocael Villatoro MD, [facility] ([phone]), at 06/05/2021 1:27 PM Narrative 06/05/2021 1:27 [...] by: Rocael Villatoro MD, [facility]([phone]), at 06/05/2021 1:27 PM Deborah Quiroga APRN IMG MAMMO ORDERABLE S documented in this encounter Visit Diagnoses Not on filedocumented in this encounter Care Teams Salon Sales Consultant Relationship Specialty Start Date End Date Deborah Quiroga APRN PCP - General Family Medicine 03/24/16 02/04/23 documented as of this encounter
--- OUTSIDE RECORDS SUMMARY | 2024-05-11 14:41 | XMS_ITS | Encounter Summary ---
Author Organization [facility] Address [facility] Erika ló[place] [address] Care Team Providers Care Medical Pathology Teacher Name Role Phone Deborha Quiroga ANURAG Primary Care Provider [phone] Encounter Details Date Type Department Care Team (Late st Contact Info) Description 11/11/2020 Refill Dermatology at [address] [address] Taylor Malone, ASSEMBLER TRUCK TRAILER Social History Tobacco Use Types Packs/Day Years [...] [facility] [place] Oncology [address] [place] [address] 05/12/2024 10:00 AM EDT Office Visit [place] [address] Markel Borjas MD [facility] H[place]ATOLOGY [place] [address] 03/01/2025 4:15 PM EDT Office Visit Dermatology at [address] [address] Marek Bonilla MD [address], [place] [address] documented as of this encounter Visit Diagnoses Not on filedocumented in this encounter Care Teams Medical Pathology Teacher Relationship Specialty Start Date End Date Deborah Quiroga APRN PCP - General Family Medicine 03/24/16 02/04/23 documented as of this encounter
--- OUTSIDE RECORDS SUMMARY | 2024-05-11 14:41 | XMS_ITS | Encounter Summary ---
Author Organization [facility] Address [facility] Erika lópez[place]yl[place] [address] Care Team Providers Care Bench Worker Helper Name Role Phone Deborah Quiroga ANURAG Primary Care Provider [phone] Encounter Details Date Type Department Care Team (Late st Contact Info) Description 01/13/2021 Refill Dermatology at [address] [address] Taylor Malone, SPRINKLER FITTER HELPER Social History Tobacco Use Types Packs/Day Years [...] [facility] [address] [place] [address] 05/12/2024 10:00 AM EDT Office Visit Hematology [place] [address] Markel Borjas MD [facility] [place] [address] 03/01/2025 4:15 PM EDT Office Visit Dermatology at [address] [address] Marek Bonilla MD [address], [place] [address] documented as of this encounter Visit Diagnoses Not on filedocumented in this encounter Care Teams Bench Worker Helper Relationship Specialty Start Date End Date Deborah Quiroga APRN PCP - General Family Medicine 03/24/16 02/04/23 documented as of this encounter
--- OUTSIDE RECORDS SUMMARY | 2024-05-11 14:41 | XMS_ITS | Encounter Summary ---
[place] [address] Care Team Providers Care Covered Buckle Assembler Name Role Phone JunaidDeborah APRN Primary Care Provider [phone] Reason for Visit * Reason Comments Follow-up Encounter Details Date Type Department Care Team (Late st Contact Info) Description 01/10/2021 4:30 PM EDT Office Visit Dermatology at [place] [address] [facility] [place] [phone] Maerk Bonilla MD [address] [facility], TODD A DERMATOLOGY [place], [place] [id number] Rosacea Social History Tobacco Use Types Packs/Day [...] cutaneous and ocular 2. Previously told by scientist engineer that she had corneal tears from [...] 3 refills. Will call this in her [facility] in [place] 3. Continue metronidazole 0.75% gel applying once [facility] [address] [place] [address] 05/12/2024 10:00 AM EDT Office Visit Hematology [place] [address] Markel Borjas MD [facility] [address] H[place]AT[place] [address] 03/01/2025 4:15 PM EDT Office Visit Dermatology at [place] [address] [facility] [place] [address] Marek Bonilla MD [address], [place] [address] documented as of this encounter Visit Diagnoses Diagnosis Rosacea Chronic idiopathic neutropenia Other neutropenia documented in this encounter Care Teams Covered Buckle Assembler Relationship Specialty Start Date End Date Deborah Quiroga APRN PCP - General Family Medicine 03/24/16 02/04/23 documented as of this encounter
--- OUTSIDE RECORDS SUMMARY | 2024-05-11 14:42 | XMS_ITS | Encounter Summary ---
Author Organization [facility] Address [facility] [place] [address] Care Team Providers Care Suspect Artist Name Role Phone Deborah Quiroga ANURAG Primary Care Provider [phone] Encounter Details Date Type Department Care Team (Late st Contact Info) Description 07/31/2016 Orders Only Hematology [place] [phone] Alexandrea Greenwood RN Neutropenia, unspecified type Social [...] [facility] [address] [place] [address] 05/12/2024 10:00 AM EDT Office Visit Hematology [place] [address] Markel Borjas MD [facility] HEMATOLOGY [place] [address] 03/01/2025 4:15 PM EDT Office Visit Dermatology at [address] [address] Marek Bonilla MD [address] [facility], [place] [address] documented as of this encounter Results * [...] neutropenia documented in this encounter Care Teams Suspect Artist Relationship Specialty Start Date End Date Deborah Quiroga APRN PCP - General Family Medicine 03/24/16 02/04/23 documented as of this encounter
--- OUTSIDE RECORDS SUMMARY | 2024-05-11 14:42 | XMS_ITS | Encounter Summary ---
[place] [address] Care Team Providers Care Telephone Services Sales Representative Name Role Phone Deborah Quiroga APRN Primary Care Provider [phone] Reason for Visit * Reason Onset Date Comments Prior Authorization 09/11/2016 Neulasta Encounter Details Date Type Department Care Team (Late st Contact Info) Description 09/11/2016 Telephone Hematology [place] [phone] Monica Wick Prior Authorization (Neulasta ) Social [...] covered facility under the members plan. ID# [id number] Call placed to [phone] Rationale: Can you please start a PA [...] [id number]. Spoke w/ Anna Marie Call Reference [id number] Copay: $ Deductible is not met, patient will have out of pocket costs until deductible is met. documented in this encounter Plan of Treatment Upcoming Encounters Date Type Department Care Team (Late st Contact Info) Description 05/12/2024 9:00 AM EDT Laboratory Appointment Lab at [facility] Hematology Oncology [address] [place] [address] 05/12/2024 10:00 AM EDT Office Visit Hematology [place] [address] Markel Borjas MD [facility] [address] [place] [address] 03/01/2025 4:15 PM EDT Office Visit Dermatology at [place] [address] [facility] [place] [address] Marek Bonilla MD [address], [place] [address] documented as of this encounter Visit Diagnoses Not on filedocumented in this encounter Care Teams Telephone Services Sales Representative Relationship Specialty Start Date End Date Deborah Quiroga APRN PCP - General Family Medicine 03/24/16 02/04/23 documented as of this encounter
--- OUTSIDE RECORDS SUMMARY | 2024-05-11 14:42 | XMS_ITS | Encounter Summary ---
Author Organization [facility] Address [facility] [place] [address] Care Team Providers Care Food Service Order Clerk Name Role Phone Deborah Quiroga ANURAG Primary Care Provider [phone] Encounter Details Date Type Department Care Team (Late st Contact Info) Description 07/31/2016 External Results Hematology [place] [phone] Alexandrea Greenwood RN Neutropenia, unspecified type Social [...] AM EDT Laboratory Appointment Lab at [facility] Hematology Oncology [address] [place] [address] 05/12/2024 10:00 AM EDT Office Visit Hematology [place] [address] Markel Borjas MD [facility] HEMATOLOGY [place] [address] 03/01/2025 4:15 PM EDT Office Visit Dermatology at [address] [address] Marek Bonilla MD [address] [place] [address] RD, [place] [address] documented as of this encounter Procedures Procedure [...] neutropenia documented in this encounter Care Teams Food Service Order Clerk Relationship Specialty Start Date End Date Deborah Quiroga APRN PCP - General Family Medicine 03/24/16 02/04/23 documented as of this encounter
--- OUTSIDE RECORDS SUMMARY | 2024-05-11 14:42 | XMS_ITS | Encounter Summary ---
Author Organization [facility] Address [facility] [place] [address] Care Team Providers Care Yarn Preparation Supervisor Name Role Phone Deborah Quiroga ANURAG Primary Care Provider [phone] Encounter Details Date Type Department Care Team (Late st Contact Info) Description 08/04/2016 External Results Hematology [place] [address] Alexandrea Greenwood RN Neutropenia, unspecified type Social [...] [facility] [place] Oncology [address] [place] [address] 05/12/2024 10:00 AM EDT Office Visit Hematology [place] [address] Markel Borjas MD [facility] H[place]ATOLOGY [place] [address] 03/01/2025 4:15 PM EDT Office Visit Dermatology at [address] [address] Marek Bonilla MD [address], [place] [address] documented as of this encounter Procedures Procedure [...] neutropenia documented in this encounter Care Teams Yarn Preparation Supervisor Relationship Specialty Start Date End Date Deborah Quiroga APRN PCP - General Family Medicine 03/24/16 02/04/23 documented as of this encounter
--- OUTSIDE RECORDS SUMMARY | 2024-05-11 14:42 | XMS_ITS | Encounter Summary ---
[place] [address] Care Team Providers Care Ssds Mk 2 Advanced Operator Name Role Phone JunaidDeborah APRN Primary Care Provider [phone] Reason for Visit * Reason Onset Date Comments Labs Only 09/16/2016 Encounter Details Date Type Department Care Team (Late st Contact Info) Description 09/16/2016 Telephone Hematology [place] [address] Alexandrea Greenwood, RN Labs Only Social History [...] is having her Neulasta done today at [facility]. ??She is wondering if we want to do a CBC prior to the injection? [phone] Borjas: CBC is fine RN spoke with Swapna at [facility] who confirms they can draw CBC on pt today, RN faxed CBC w/diff to [facility] lab at [phone] RN relayed to pt that CBC ordered had been faxed to [facility], pt will have CBC drawn today prior to neulasta injection. documented in this encounter Plan of Treatment Upcoming Encounters Date Type Department Care Team (Late st Contact Info) Description 05/12/2024 9:00 AM EDT Laboratory Appointment Lab at [facility] [place] Oncology [address] [place] [address] 05/12/2024 10:00 AM EDT Office Visit Hematology [place] [address] Markel Borjas MD [facility] [place] [address] 03/01/2025 4:15 PM EDT Office Visit Dermatology at [place] [address] [place] [address] Marek Bonilla MD [address] [facility] [address] documented as of this encounter Results * [...] neutropenia documented in this encounter Care Teams Ssds Mk 2 Advanced Operator Relationship Specialty Start Date End Date Deborah Quiroga APRN PCP - General Family Medicine 03/24/16 02/04/23 documented as of this encounter
--- OUTSIDE RECORDS SUMMARY | 2024-05-11 14:42 | XMS_ITS | Encounter Summary ---
[place] [address] Care Team Providers Care Pulp Machine Operator Name Role Phone Ashley Quirogan Cornelius ANURAG Primary Care Provider [phone] Reason for Visit * Reason Onset Date Comments Medication Management 09/14/2016 Encounter Details Date Type Department Care Team (Late st Contact Info) Description 09/14/2016 Telephone Hematology [place] [address] Alexandrea Greenwood, virtual assistant for advertisers Management Social History Tobacco Use Types Packs/Day [...] 09/14/2016 9:12 AM EST Message received from city secretary: Purnima called, asking for clarification on [...] [facility] [place] On[place] [address] [place] [address] 05/12/2024 10:00 AM EDT Office Visit [place]ematology [place] [address] Markel Borjas MD [facility] [address] [place] [address] 03/01/2025 4:15 PM EDT Office Visit Dermatology at [place] [address] [facility] [place] [address] Marek Bonilla MD [address], [place] [address] documented as of this encounter Visit Diagnoses Not on filedocumented in this encounter Care Teams Pulp Machine Operator Relationship Specialty Start Date End Date Deborah Quiroga APRN PCP - General Family Medicine 03/24/16 02/04/23 documented as of this encounter
--- OUTSIDE RECORDS SUMMARY | 2024-05-11 14:42 | XMS_ITS | Encounter Summary ---
[place] [address] Care Team Providers Care Celery Cutter Name Role Phone Deborah Quiroga ANURAG Primary Care Provider [phone] Encounter Details Date Type Department Care Team (Late st Contact Info) Description 09/11/2016 Orders Only Hematology [place] [address] Alexandrea Greenwood RN Social History [...] original note were not included. [facility] HEM ONC [facility] [phone] Date: 09/11/16 Patient Name: Purnima Thacker : 1955 Diagnosis: Neutropenia Referral to [site]: [facility] Orders: ? Growth factor: [x] Neulasta 6mg SQ injection x 1 on 09/16/16 Signature: Markel Borjas MD beeper # [id number] Co-signature [if needed]: documented in this encounter Plan of Treatment Upcoming Encounters Date Type Department Care Team (Late st Contact Info) Description 05/12/2024 9:00 AM EDT Laboratory Appointment Lab at [facility] [place]ology Oncology [address] [place] [address] 05/12/2024 10:00 AM EDT Office Visit Hematology [place] [address] Markel Borjas MD [facility] [address] [place] [address] 03/01/2025 4:15 PM EDT Office Visit Dermatology at [place] [address] [facility] [place] [address] Marek Bonilla MD [address], [place] [address] documented as of this encounter Procedures Procedure Name Priority Date/Time Associated Diagnosis Comments TRANSESOPHAGEAL ECHOCARDIOGRAM (GAVINO) Routine 09/22/2016 documented in this encounter Results * Transesophageal Echocardiogram (GAVINO) (09/22/2016) Anatomical Region Laterality Modality Other 09/22/2016 Narrative 09/22/2016 8:30 AM EST Procedure: ?Transesophageal Echocardiogram Patient: ?ANDREW ECHOLS M ? (Age): 1955(61y) Med Rec#: ? [id number] ?Sex: ?M ? Site Loc: ? [facility] ?Ht / Wt: ??(cm)/ (kg) ? Pt. Loc: ?OR ? Study Date: ?? 09/21/2016 ?Pt. Type: Tape: ? 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 AVR for severe Rhythm: ? [...] ? Mid-Inferior ?Normal ? Mid-Inferoseptal ?Normal ? [place]-Septal ? Normal ? [place]-Anterior ? Normal ? [place]-Lateral ?Normal ? [place]-Inferior ? Normal ? [place]-Tip ?Normal ? This report has been electronically signed by: Henrik Yarbrough M.D. ? 09/22/2016 08:30:41 Images reviewed and interpretation verified [facility] Cardiac Ultrasound Laboratory Procedure Note Henrik Yarbrough MD - 09/22/2016 Procedure: Transesophageal Echocardiogram Patient: ANDREW Mejias (Age): 1955(61y) Med Rec#: [id number] Sex: M Site Loc: [facility] Ht / Wt: (cm)/ (kg) Pt. Loc: OR Study Date: 09/21/2016 Pt. 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 09/22/2016 08:30:41 Images reviewed and interpretation verified [facility] Cardiac Ultrasound Laboratory Unknown ECHO ORDERABLES documented in this encounter Visit Diagnoses Not on filedocumented in this encounter Care Teams Celery Cutter Relationship Specialty Start Date End Date Deborah Quiroga APRN PCP - General Family Medicine 03/24/16 02/04/23 documented as of this encounter
--- OUTSIDE RECORDS SUMMARY | 2024-05-11 14:42 | XMS_ITS | Encounter Summary ---
Author Organization [facility] [place] [address] Care Team Providers Care Expediter Service Order Name Role Phone Ashley Quirogan Cornelius ANURAG Primary Care Provider [phone] Reason for Referral * Consultation (Routine) - Specialty Diagnoses / Procedures Referred By Contact Referred To Contact Cardiac Rehabilitation Diagnoses S/P AVR Alirio Esparza MD [facility] DR [place] [address] Cardiac Rehab, [address] [place] [address] Referral ID Status Reason Start Date Expiration Date V isits Requested Visits Authorized [id number] Consult, Test & Treat 09/25/2016 03/24/2017 36 36 Reason for Visit * Auth/Cert Specialty Diagnoses / Procedures Referred By Contkrystle t Referred To Contact Diagnoses Aortic stenosis Procedures PRO REPLACE AORT VALV, PROSTH VALV @REPLACE AORTIC VALVE, OPEN, W\CPB, W\PROSTHETIC VALVE (WRVU 41.32) Referral ID Status Reason Start Date Expiration Date Visits Re quested Visits Authorized [id number] 1 1 Encounter Details Date Type Department Care Team (Latest Contact Info) Description 09/21/2016 6:08 AM EST - 09/25/2016 4:33 PM EST Hospital Encounter Inter[place] [id number] Alirio Esparza MD Aortic valve stenosis, unspecified [...] Patient Age: 61 y.o. Birthdate: 1955 Language: Malay Race: White Ethnicity: Not nor Admit Date: 09/21/2016 Discharge Date: 09/25/2016 Attending Physician: Alirio Esparza MD Follow-up Recommendations for Providers: Please continue routine management of cardiovascular risk factors including blood pressure, lipids,glucose, etc. Please note any changes to medications. Patient to follow-up with PCP, Deborah Quiroga APRN, in 1-2 weeks. Patient to follow-up with Vice President Media Relations, Dr. Antelmo Burrell, in two weeks. Patient to follow-up with Cardiac Surgery, Dr. Alirio Esparza, to be scheduled for before 10/19/2016, with CXR, EKG, and Echo. Inpatient Provider Contact Information: [facility] Section of Cardiac Surgery [facility] [address] FAX [phone] Discharge Diagnoses (Hospital Problems) Primary Diagnoses: Secondary [...] 41.32) performed by Alirio Esparza MD at [facility] MAIN OR ??? Pro aortoplas for supravalv sten N/A 09/21/2016 @AORTOPLASTY FOR SUPRAVALVULAR STENOSIS (WRVU 29.33) performed by Alirio Esparza MD at [facility] MAIN [...] Hospital Course: Purnima Thacker was admitted to [facility] on 09/21/2016 via the Same [...] Alirio Esparza and/or the Cardiac Surgery Physician Program Dir Team may be reached at . Antibiotic prophylaxis: You will need to take antibiotics prior to many invasive tests and treatments, such as dental cleaning, which should be done every 6 months. Your primary care physician or your dentist can prescribe this medication. Please refer to the card with the [place] [employer] Guidelines for more information. You have been provided with 3 copies of this card. Keep one for your self. Give one to your primary care physician and one to your dentist. Please refer to the [place] [employer] Guidelines for more information. Good [...] Dr. Alirio Jones. You may use a [place] Track or treadmill but avoid any [...] should resume a low fat, low cholesterol, [place] [employer] Diet. Driving: No driving until [...] AM Markel Borjas MD [facility] [phone] Future Orders Complete By Expires Echocardiogram Transthoracic([place]) [MIF779 Custom] 10/18/2016 (Approximate) 09/18/2017 Process Instructions: If the Echocardiogram is to be PERFORMED in a location other than [place]--STOP and order [id number], Echocardiogram South/External. Scheduling Instructions: Questions: Is a Bubble Study requested?: No Does the patient have Congenital Heart Disease?: No Does patient require sedation?: None GA rationale: Should this service be billed to the research sponsor?: EKG 12 Lead [EKG1 Custom] 10/18/2016 (Approximate) 09/25/2017 Process Instructions: Scheduling Instructions: Questions: Which location will this be performed?: [place] Is a rhythm strip needed?: No If EKG Reason is Pre-op Evaluation, indicate diagnosis for surgery.: Should this service be billed to the research sponsor?: XR Chest PA & Lateral (Generic) [[id number] Custom] 10/18/2016 (Approximate) 09/25/2017 Process Instructions: Scheduling Instructions: Questions: Where will study be performed?: [facility]- Radiology Portable exam?: No Reason for exam and clinical history: s/p AVReplacement, patch annuloplasty 1 month f/u Other pertinent information: Stat read required?: Date of injury if applicable: Requested Time: Referral to Cardiac Rehab [YZR210 Custom] As directed Process Instructions: If no progress note charted, please enter Clinical details in comments. Scheduling Instructions: Questions: My question or request is: s/p AVR. Cardiac rehab at [facility] Referral to Home Health - at DISCHARGE [VUI3746 CPT(R)] As directed Process Instructions: Scheduling Instructions: Comments: DOCUMENTATION FOR VNA SERVICES (INCLUDING THOSE PATIENTS WITH MEDICARE COVERAGE REQUIRING HOME VNA SERVICES AND/OR HOSPICE SERVICES) PATIENT'S LOCATION: Purnima Magalie Kirstie [address] [place] [phone] (home) No relevant phone numbers on file. Service Representative's Name: self In discussion with the attending physician, it is certified that this patient is under their care and that they, or a Nurse Practitioner, or Physician Program Dir who is working directly with them, hada [...] for services as follows: HOME HEALTH AGENCY: [facility] PHONE: [phone] FAX: [phone] RN orders: Cardiopulmonary assessment, incisional assessment, assess [...] issues please call the Cardiac SurgeryOffice at [phone] FOR MEDICARE ONLY: In discussion with the [...] [facility] Section of Cardiac Surgery [facility] [address] FAX [phone] Date: 09/25/2016 CC: ANURAG Alford Caryn E, APRN [address] [place] [address] documented in this encounter Discharge Instructions * [...] Alirio Esparza and/or the Cardiac Surgery Physician Program Dir Team may be reached at . Antibiotic prophylaxis: You will need to take antibiotics prior to many invasive tests and treatments, such as dental cleaning, which should be done every 6 months. Your primary care physician or your dentist can prescribe this medication. Please refer to the card with the [place] [employer] Guidelines for more information. You have been provided with 3 copies of this card. Keep one for your self. Give one to your primary care physician and one to your dentist. Please refer to the [place] [employer] Guidelines for more information. Good [...] Dr. Alirio Jones. You may use a [place] Track or treadmill but avoid any [...] should resume a low fat, low cholesterol, [place] [employer] Diet. Driving: No driving until [...] PM EST Cardiac Surgery Progress Note: ID: [id number] S/p AVR, patch aortoplasty POD#2. PMH of [...] Gas) No results found for: PHART, PO2ART, [id number] Assessment/Plan: TPW out this am. (+) BM. [...] Signed: Crispin Aranda PA-C 09/24/2016 Team pager: [phone]; [phone] after 5pm [facility] Section of Cardiac Surgery * Leonor Henson, [employer]CH PRECISION ASSEMBLER - 09/23/2016 10:48 AM EST Cardiac Surgery Progress Note: ID: [id number] s/p AVR, patch aortoplasty POD#2. PMH of [...] Gas) No results found for: PHART, PO2ART, EYB7FIK Assessment/Plan: s/p AVR, patch aortoplasty POD#2. PMH of Neutropenia, HLD, HTN, Depression, obesity, . Transferred from [facility] yesterday and doing well. Pathway. [...] Surgeon on rounds. Signed: Leonor Henson APRN [facility] Section of Cardiac Surgery Date: 09/23/2016 * Nico Palacios PA - 09/22/2016 9:56 AM EST Cardiac Surgery Progress Note: ID: [id number] s/p AVR, patch aortoplasty POD#1. PMH of [...] NT, ND, soft. Ext: Moves all extremities. [place], well perfused. Incisions: C/D/I Tubes/Lines/Drains: PIV, leanna, [...] Attending Surgeon on rounds. Signed: EKATERINA KIM [facility] Section of Cardiac Surgery Date: [...] with outpatient services Lalitha Cohen SPTA Pager: [phone] Inpatient Physical Therapy Patient status, treatment interventions, and goals discussed with student. I am in agreement with all details and associated flowsheet rows as documented and was present for all aspects of the patient treatment session. Nerykatrina Jaramillo, [facility] Pager [phone] Problem: Acute Rehab Services Goal & Intervention Plan Goal: Bed Mobility Goal Stand Alone Therapy Goal Outcome: Ongoing (Interventions Implemented as Appropriate) 09/22/16 16109/25/16 09 Bed Mobility Goal Bed Mobility Goal, Time to Achieve 4 days -- Bed Mobility Goal, Activity Type scoot/bridge;supine to sit/sit to supine -- Bed Mobility Goal, [place] Level independent -- Bed Mobility Goal, Additional [...] Achieve 4 days -- Gait Training Goal, [place] Level independent -- Gait Training Goal, Distance [...] assist, home with home health Lalitha Cohen [facility] Pager: [phone] Inpatient Physical Therapy Patient status, treatment interventions, and goals discussed with student. I am in agreement with all details and associated flowsheet rows as documented and was present for all aspects of the patient treatment session. Nery Jaramillo, [facility] Pager [phone] Problem: Acute Rehab Services Goal & Intervention Plan Goal: Bed Mobility Goal Stand Alone Therapy Goal Outcome: Ongoing (Interventions Implemented as Appropriate) 09/22/16 16109/23/16 1412 Bed Mobility Goal Bed Mobility Goal, Time to Achieve 4 days -- Bed Mobility Goal, Activity Type scoot/bridge;supine to sit/sit to supine -- Bed Mobility Goal, [place] Level independent -- Bed Mobility Goal, Additional [...] Achieve 4 days -- Gait Training Goal, [place] Level independent -- Gait Training Goal, Distance [...] days -- Transfer Training Goal, Activity Type ucg-cy-wwgwc/slcio-es-mqr;chk-uv-mpbrc/jvwvj-gy-kwy -- Transfer Train Goal, [place] Level independent -- Transfer Training Goal, Additional [...] Another Service: (cardiac rehab) NICOLE HERNANDEZ, PT Pager:[phone] Inpatient Physical Therapy Problem: Acute Rehab Services Goal & Intervention Plan Goal: Bed Mobility Goal Stand Alone Therapy Goal Outcome: Ongoing (Interventions Implemented as Appropriate) 09/22/16 1611 Bed Mobility Goal Bed Mobility Goal, Time to Achieve 4 days Bed Mobility Goal, Activity Type scoot/bridge;supine to sit/sit to supine Bed Mobility Goal, [place] Level independent Bed Mobility Goal, Additional Goal able to abide sternal precautions during transfers Goal: Gait Training Goal Stand Alone Therapy Goal Outcome: Ongoing (Interventions Implemented as Appropriate) 09/22/16 1611 Gait Training Goal Gait Training Goal, Date Established 09/22/16 Gait Training Goal, Time to Achieve 4 days Gait Training Goal, [place] Level independent Gait Training Goal, Distance to Achieve ascend and descends 2 steps independently Goal: Goal Transfer Training Stand Alone Therapy Goal Outcome: Ongoing (Interventions Implemented as Appropriate) 09/22/16 1611 Goal Transfer Training Transfer Training Goal, Time to Achieve 4 days Transfer Training Goal, Activity Type xyn-az-yfqmq/goytk-mx-fiu;rxt-yi-icdrb/wwevk-ec-mce Transfer Train Goal, [place] Level independent Transfer Training Goal, Additional Goal [...] of completing AD's at home, chooses her iwzsbw-sh-wqq, Martha Thacker (home) for her [facility], 2nd choice in friend, Nitesh Leroy [place], [place] Current Coping/Education/Information Needs: patient sitting up [...] who live close by, [place], and her knmfgg-px-mmw Martha Thacker who she has chosen to be her DPOAH. Also has a friend Nitesh Leroy who lives in [place], [place], also her DPOAH choice. Behavioral Health History: none on file in [facility] Substance Use/Abuse: none on file in [facility] Other Pertinent/Service Specific Information: none Health/Prescription Coverage: Primary Insurance: [employer] Secondary Insurance: none Prescription Coverage: yes, per patient no issues Preferred Pharmacy: ?? Other: none Primary Care Provider: Deborah Quiroga, BENCH [employer]CISION ASSEMBLER [phone] Patient/Caregiver Goals of Treatment: per medical team recommendations at discharge for CT surgery Potential Needs for Transition of Care: Rehab/SNF: TBD Home Health: TBD DME: no Dialysis: no Community Resources: non3 Transportation: ride home with a friend Other: none Anticipated Barriers to Discharge/Special Considerations: none anticipated at this time Plan: patient will need VNA services at discharge. The patient/personal service representative has been provided a list of Home Health Agencies/DME vendors which servetheir preferred geographic area. A letter describing our affiliations was reviewed with them and they were educated about their right to choose where referrals are placed. Patient requests referral to: [facility]. PHONE: [phone] FAX: [phone] Expected date of discharge: Fri/Sat? CM called VNA to confirm referral, talked with VALDO Bunn/intake who stated she was familiar w/patient & would monitor her progress through curaspan. Referral routed to the National Sales Consultant for matching with agency/vendor and to provide any required information. A member of the Care Management team will continue to monitor progress, follow for continuity of care and assist with transition of care planning. Amanda Moreno RN Pager: [phone] * Op Note - Alirio Esparza MD - 09/21/2016 12:53 PM EST 09/23/2016 Purnima Thacker 1955 [id number] Preoperative Diagnosis: Symptomatic aortic stenosis Postoperative Diagnosis: Symptomatic aortic stenosis Procedure: Aortic valve replacement: Bovine Pericardial 25 mm Surgeon: Alirio Esparza M.D. Program Dir: Philip BALL Anesthesia: General endotracheal anesthesia Drains: [...] Operative Note Patient Name: Purnima Thacker : [id number] MR#: [id number] Case Date: 09/21/2016 Surgeon: Surgeon(s) and Role: * Alirio Esparza MD - Primary * Nico Palacios PA - Physician Program Dir Preoperative diagnosis: Postoperative diagnosis: Procedure(s) (LRB): @REPLACE [...] [facility] Hemat[facility] Oncology [address] [place] [address] 05/12/2024 10:00 AM EDT Office Visit Hematology [place] [address] Markel Borjas MD [facility] [address] [place] [address] 03/01/2025 4:15 PM EDT Office Visit Dermatology at [address] [place] [address] Marek Bonilla MD [address], [place] [address] Scheduled Orders Name Type Priority Associated Diagnoses [...] IMPLANTABLE DEVICES SCAN 09/26/2016 12:00 AM EST GLASS UNLOADING EQUIPMENT TENDER SCAN 09/26/2016 12:00 AM EST POTASSIUM [...] SCAN EXT O RDR/RSLT * SCAN DOC: GLASS UNLOADING EQUIPMENT TENDER (09/26/2016 12:00 AM EST) Anatomical Region Laterality Modality Other Narrative 09/26/2016 12:00 AM EST Ordered by an unspecified provider. Scanning Provider MEDIA MGR SCAN EXT O RDR/RSLT * Potassium (09/25/2016 4:32 AM EST) Pathologist [facility] Potassium 4.4 3.5 - 5.0 mmol/L [facility] [...] CHEMISTRY ORDERABLE S [facility] [place] [address] * (ABNORMAL) Differential, Automated (09/24/2016 9:56 AM [...] Eosinophils Abs 0.0 0.0 - 0.4 x10(3)/[facility] Basophil % 0.2 % [facility] Baso Absolute 0.0 0.0 - 0.1 x10(3)/[facility] Immature Gran % 2.90 % [facility] Comment: Immature granulocytes(IG's)percentage and absolute count will include metamyelocytes, myelocytes, and promyelocytes. Blood smears from CBCs yielding IG's will be scanned manually for concordance. If this scan disagrees with the automated IG or if promyelocytes are noted, a manual differential will be performed. Immature Gran Absolute 0.29(H) 0.00 - 0.04 x10(3)/[facility] Blood specimen (specimen) 09/24/2016 9:56 AM EST 09/24/2016 10:04 AM EST Narrative Resulting Agency Comment Spec In Lab Alirio Esparza MD HEMATOLOGY ORDERABL ES [facility] [place] [address] * (ABNORMAL) Hemogram (09/24/2016 9:56 AM EST) White Blood Cell 10.1(H) 4.0 - 9.5 x10(3)/[facility] Red Blood Cell 2.87(L) 4.00 - 5.21 x10(6)/[facility] Hemoglobin 9.4(L) 11.7 - 15.5 gm/dL [...] Standard Deviation 45.0 37.0 - 46.0 fL [facility] [...] HEMATOLOGY ORDERABL ES [facility] [place] [id number] * (ABNORMAL) Basic Metabolic Panel (non-fasting) (09/24/2016 [...] the following links into your internet browser. [email or web address] Blood specimen (specimen) 09/24/2016 9:56 AM EST 09/24/2016 10:04 AM EST Narrative Resulting Agency Comment Spec In Lab Alirio Esparza MD CHEMISTRY ORDERABLE S [facility] [place] [address] * XR Chest PA & Lateral (Generic) [...] CHEMISTRY ORDERABLE S [facility] [place] [address] * POCT Glucose (09/22/2016 8:17 AM EST) Glucose, POC 131 65 - 199 mg/dL [facility] Comment: Supplemental ranges: <140 mg/dL before meals <180 mg/dL all other times of the day Blood specimen (specimen) 09/22/2016 8:17 AM EST 09/22/2016 8:17 AM EST Narrative Authorizing Provider Result Slade Esparza MD POINT OF CARE TEST ORDERABLES [facility] [place] [address] * POCT Glucose (09/22/2016 4:01 AM EST) [facility] Glucose, POC 135 65 - 199 mg/dL [facility] Comment: Supplemental ranges: <140 mg/dL before meals <180 mg/dL all other times of the day Blood specimen (specimen) 09/22/2016 4:01 AM EST 09/22/2016 4:01 AM EST Alirio Esparza MD POINT OF CARE TEST ORDERABLES Performing Organization Address [facility] Co de Phone Number [facility] [place] [address] * Scan, Peripheral Blood (09/22/2016 4:00 AM EST) [facility] Plat estimate Normal [facility] RBC Morphology Abnormal [facility] Macrocyte 1-5 /HPF [facility] Plat, Giant Less than 1 /HPF [facility] Blood specimen (specimen) 09/22/2016 4:00 AM EST 09/22/2016 4:34 AM EST Narrative Resulting Agency Comment Spec In Lab Alirio Esparza MD HEMATOLOGY ORDERABL ES Performing Organization Address [facility] Co de Phone Number [facility] [place] [address] * Electrolytes panel (09/22/2016 4:00 AM EST) [facility] Sodium 145 135 - 145 mmol/L [facility] [...] CHEMISTRY ORDERABLE S [facility] [place] [address] * (ABNORMAL) Differential, Automated (09/22/2016 4:00 AM EST) Neutrophil % 70.9 % [facility] Neutrophil Absolute 5.33 1.70 - 6.10 x10(3)/ L [facility] Lymph % 9.1 % [facility] Lymphocytes Abs 0.7(L) 0.9 - 3.2 x10(3)/[facility] Monocyte % 18.0 % [facility] Monocyte Abs 1.4(H) 0.3 - 0.9 x10(3)/ L [facility] Eos % 0.0 % [facility] Eosinophils Abs 0.0 0.0 - 0.4 x10(3)/[facility] Basophil % 0.1 % [facility] [...] Absolute 0.14(H) 0.00 - 0.04 x10(3)/ L [facility] Blood specimen (specimen) 09/22/2016 4:00 AM EST 09/22/2016 4:34 AM EST Narrative Resulting Agency Comment Spec In Lab Alirio Esparza MD HEMATOLOGY ORDERABL ES Performing Organization Address City/[facility]/ZIP Co de Phone Number [facility] [place] [address] * (ABNORMAL) Hemogram (09/22/2016 4:00 AM EST) White Blood Cell 7.5 4.0 - 9.5 x10(3)/mc L [facility] Red Blood Cell 2.93(L) 4.00 - 5.21 x10(6)/mc L [facility] Hemoglobin 9.2(L) [...] Platelet 161 145 - 357 x10(3)/mc L [facility] [...] HEMATOLOGY ORDERABL ES [facility] [place] [address] * (ABNORMAL) Cardiac Enzymes (09/22/2016 4:00 AM EST) Pathologist [facility] Troponin-T 0.13(H) <=0.03 ng/mL [facility] Comment: 0.03 ng/mL: Represents the 99th percentile upper reference limit for normals. >0.03 ng/mL: Elevated cardiac troponin T level indicative of myocardial damage. Diagnosis of acute, evolving or recent AL requires a typical rise and gradual fall [...] consensus document of the Joint Society of Cardiology/[place] College of Cardiology Committee for the redefinition of myocardial infarction. ??Journal of the [place] College of Cardiology 2000; 36: 959-969] Creatine Kinase 338(H) 0 - 160 unit/L [facility] Blood specimen (specimen) 09/22/2016 4:00 AM EST 09/22/2016 4:34 AM EST Narrative Resulting Agency Comment Spec In Lab Alirio Esparza MD CHEMISTRY ORDERABLE S [facility] [place] [address] * (ABNORMAL) Glucose, fasting (09/22/2016 4:00 AM EST) Pathologist [facility] Glucose Fasting 137(H) 65 - [...] of Diabetes Mellitus, Position Statement from the [place] Diabetes Association. ??Diabetes Care, Volume 33, Supplement 1, Aug 2009 Blood specimen (specimen) 09/22/2016 4:00 AM EST 09/22/2016 4:34 AM EST Narrative Resulting Agency Comment Spec In Lab Alirio Esparza MD CHEMISTRY ORDERABLE S Performing Organization Address [facility] Co de Phone Number [facility] [place] [address] * (ABNORMAL) Creatinine (09/22/2016 4:00 AM EST) [facility] Signature Creatinine 0.69(L) 0.70 - 1.20 mg/dL [facility] [...] the following links into your internet browser. [email or web address] Blood specimen (specimen) 09/22/2016 4:00 AM EST 09/22/2016 4:34 AM EST Narrative Resulting Agency Comment Spec In Lab Alirio Esparza MD CHEMISTRY ORDERABLE S Performing Organization Address [facility] Co de Phone Number [facility] [place] [address] * BUN (09/22/2016 4:00 AM EST) Blood Urea Nitrogen 10 8 - 18 mg/dL [facility] Blood specimen (specimen) 09/22/2016 4:00 AM EST 09/22/2016 4:34 AM EST Narrative Resulting Agency Comment Spec In Lab Alirio Esparza MD CHEMISTRY ORDERABLE S Performing Organization Address City/[facility]/ZIP Co de Phone Number [facility] [place] [address] * POCT Glucose (09/21/2016 9:59 PM EST) Glucose, POC 146 65 - 199 mg/dL [facility] Comment: Supplemental ranges: <140 mg/dL before meals <180 mg/dL all other times of the day Blood specimen (specimen) 09/21/2016 9:59 PM EST 09/21/2016 9:59 PM EST Alirio Esparza MD POINT OF CARE TEST ORDERABLES Performing Organization Address [facility]/ZIP Co de Phone Number [facility] [place] [address] * POCT Glucose (09/21/2016 7:26 PM EST) Glucose, POC 152 65 - 199 mg/dL [facility] Comment: Supplemental ranges: <140 mg/dL before meals <180 mg/dL all other times of the day Blood specimen (specimen) 09/21/2016 7:26 PM EST 09/21/2016 7:26 PM EST Alirio Esparza MD POINT OF CARE TEST ORDERABLES Performing Organization Address City/[facility]/ZIP Co de Phone Number [facility] [place] [address] * POCT Glucose (09/21/2016 6:00 PM EST) Glucose, POC 146 65 - 199 mg/dL [facility] Comment: Supplemental ranges: <140 mg/dL before meals <180 mg/dL all other times of the day Blood specimen (specimen) 09/21/2016 6:00 PM EST 09/21/2016 6:00 PM EST Alirio Esparza MD POINT OF CARE TEST ORDERABLES [facility] [place] [address] * (ABNORMAL) BLOOD GAS 2 ARTERIAL (09/21/2016 4:42 PM EST) pH, Arterial 7.35(L) 7.35 - 7.45 [facility] [...] OF CARE TEST ORDERABLES Performing Organization Address [facility] Co de Phone Number [facility] [place] [address] * POCT Glucose (09/21/2016 4:07 PM EST) Glucose, POC 150 65 - 199 mg/dL [facility] Comment: Supplemental ranges: <140 mg/dL before meals <180 mg/dL all other times of the day Blood specimen (specimen) 09/21/2016 4:07 PM EST 09/21/2016 4:07 PM EST Alirio Esparza MD POINT OF CARE TEST ORDERABLES Performing Organization Address [facility] Co de Phone Number [facility] [place] [address] * (ABNORMAL) Hemoglobin (09/21/2016 4:05 PM EST) Hemoglobin 9.9(L) 11.7 - 15.5 gm/dL [facility] Blood specimen (specimen) 09/21/2016 4:05 PM EST 09/21/2016 4:20 PM EST Narrative Resulting Agency Comment Spec In Lab Alirio Esparza MD HEMATOLOGY ORDERABL ES Performing Organization Address [facility] Co de Phone Number [facility] [place] [address] * Potassium (09/21/2016 4:05 PM EST) Potassium 4.6 3.5 - 5.0 mmol/L [facility]/ZIP Co de Phone Number [facility] [place] [address] * POCT Glucose (09/21/2016 2:52 PM EST) Glucose, POC 117 65 - 199 mg/dL [facility] Comment: Supplemental ranges: <140 mg/dL before meals <180 mg/dL all other times of the day Blood specimen (specimen) 09/21/2016 2:52 PM EST 09/21/2016 2:52 PM EST Alirio Esparza MD POINT OF CARE TEST ORDERABLES Performing Organization Address City/[facility]/ZIP Co de Phone Number [facility] [place] [address] * POCT Glucose (09/21/2016 1:51 PM EST) Glucose, POC 108 65 - 199 mg/dL [facility] Comment: Supplemental ranges: <140 mg/dL before meals <180 mg/dL all other times of the day Blood specimen (specimen) 09/21/2016 1:51 PM EST 09/21/2016 1:51 PM EST Alirio Esparza MD POINT OF CARE TEST ORDERABLES Performing Organization Address City/[facility]/ZIP Co de Phone Number [facility] [place] [address] * POCT Glucose (09/21/2016 12:54 PM EST) Glucose, POC 128 65 - 199 mg/dL [facility] Comment: Supplemental ranges: <140 mg/dL before meals <180 mg/dL all other times of the day Blood specimen (specimen) 09/21/2016 12:54 PM EST 09/21/2016 12:54 PM EST Alirio Esparza MD POINT OF CARE TEST ORDERABLES [facility] [place] [address] * EKG 12 Lead (09/21/2016 12:26 PM EST) Ventricular rate 87 BPM MUSE SYSTEM Atrial Rate 87 BPM MUSE SYSTEM P-R Interval 256 ms MUSE SYSTEM QRS Duration 90 ms MUSE SYSTEM Q-T Interval 406 ms MUSE SYSTEM QTC Calculated (Bezet) 488 ms MUSE SYSTEM Calculated P Fletcher 24 degrees MUSE SYSTEM Calculated R Fletcher 21 degrees MUSE SYSTEM Calculated T Fletcher -5 degrees MUSE SYSTEM INTERPRETATION Sinus rhythm [...] course of the esophagus and below the wtpaw-fn-jrvh. There is a right IJ PA catheter [...] the course of theesophagus and below the gulvt-iq-bprp. There is a right IJ PA catheter [...] CARE TEST ORDERABLES [facility] [place] [address] * (ABNORMAL) BLOOD GAS 2 ARTERIAL (09/21/2016 [...] [facility] Temp Art 36.7 Celsius [facility] Blood specimen (specimen) 09/21/2016 10:54 AM EST 09/21/2016 10:54 AM EST Alirio Esparza MD POINT OF CARE TEST ORDERABLES [facility] [place] [address] * Thrombin time (09/21/2016 10:50 AM EST) [...] MD HEMATOLOGY ORDERABLE S Performing Organization Address [facility] Co de Phone Number [facility] [place] [address] * Fibrinogen (09/21/2016 10:50 AM EST) Fibrinogen [...] HEMATOLOGY ORDERABLE S [facility] [place] [address] * APTT (09/21/2016 10:50 AM EST) Partial [...] MD HEMATOLOGY ORDERABLE S Performing Organization Address [facility] de Phone Number [facility] [place] [address] * (ABNORMAL) Prothrombin Time (09/21/2016 10:50 AM [...] MD HEMATOLOGY ORDERABLE S Performing Organization Address [facility] de Phone Number [facility] [place] [address] * (ABNORMAL) Hemogram (09/21/2016 10:50 AM EST) [...] MD HEMATOLOGY ORDERABLE S Performing Organization Address City/[facility] Co de Phone Number [facility] [place] [address] * Prepare Platelets, Apheresis (09/21/2016 10:30 AM EST) Pathologist [facility] Dispensed? Yes [facility] Blood specimen (specimen) 09/21/2016 10:30 AM EST 09/21/2016 10:28 AM EST Alirio Esparza MD BLOOD BANK PRODUCT ORDERABLES Performing Organization Address City/[facility]/ZIP Co de Phone Number [facility] [place] [address] * (ABNORMAL) BLOOD GAS 2 ARTERIAL (09/21/2016 10:05 AM EST) Pathologist [facility] pH, Arterial 7.33(L) 7.35 - 7.45 [facility] PCO2, Arterial 54(Critic al) 35 - 45 mmHg [facility] Comment:Noted by certified hearing instrument dispenser. [...] [facility] Comment: Noted by certified hearing instrument [...] CARE TEST ORDERABLES [facility] [place] [address] * (ABNORMAL) BLOOD GAS 2 ARTERIAL (09/21/2016 9:44 AM EST) pH, Arterial 7.22(Criti gabrielle) 7.35 - 7.45 [facility] Comment:Noted by certified hearing instrument dispenser. PCO2, Arterial 70(Critica l) 35 - 45 mmHg [facility] Comment:Noted by certified hearing instrument dispenser. [...] OF CARE TEST ORDERABLES Performing Organization Address [facility] de Phone Number [facility] [place] [address] * (ABNORMAL) Hemoglobin (09/21/2016 9:42 AM EST) Hemoglobin 7.2(L) 11.7 - 15.5 gm/dL [facility] Blood specimen (specimen) 09/21/2016 9:42 AM EST 09/21/2016 9:51 AM EST Narrative Resulting Agency Comment Spec In Lab Alirio Esparza MD HEMATOLOGY ORDERABL ES Performing Organization Address [facility] Phone Number [facility] [place] [address] * Platelet count (09/21/2016 9:42 AM EST) Platelet 159 145 - 357 x10(3)/mc L [facility] Immature Plt % 1.6 0.0 - 7.4 % [facility] Comment: Limitation of the Immature Platelet Fraction (IPF)-May be less reliable when the platelet count is less than 18q083/uL due to statistical imprecision. The IPF value [...] in a decreased state of production. References: [employer] The Clinical Value of the Immature Platelet Fraction (IPF) in Cell Recovery Document Number 10-1143 12/2010 [employer] The Role of the Immature Platelet Fraction (IPF) in the Differential Diagnosis of Thrombocytopenia, Document MKT-10-1209 V05/07/15 P012/13 Blood specimen (specimen) 09/21/2016 9:42 AM EST 09/21/2016 9:51 AM EST Narrative Resulting Agency Comment Spec In Lab Alirio Esparza MD HEMATOLOGY ORDERABL ES Performing Organization Address [facility] Co de Phone Number [facility] [place] [address] * (ABNORMAL) Hematocrit (09/21/2016 9:42 AM EST) [...] MD HEMATOLOGY ORDERABL ES Performing Organization Address [facility] Co de Phone Number [facility] [place] [address] * Fibrinogen (09/21/2016 9:42 AM EST) Fibrinogen [...] HEMATOLOGY ORDERABL ES [facility] [place] [address] * (ABNORMAL) BLOOD GAS 2 ARTERIAL (09/21/2016 [...] CARE TEST ORDERABLES [facility] [place] [address] * Surgical Pathology Report (09/21/2016 9:09 AM EST) Final Diagnosis [id number] ?Location: 3T The signing pathologist has (i) [...] Esparza MD PATHOLOGY/CYTOLOGY ORDERABLES Performing Organization Address City/[facility]/[place] [address] * Specimen to Pathology (surgical or derm) (09/21/2016 9:09 AM EST) AP Specimen 09/21/2016 9:09 AM EST 09/21/2016 9:09 AM EST Narrative [facility] - 09/21/2016 9:09 AM EST Specimen requisition ordered. ??Separate Pathology report to follow Alirio Esparza MD PATHOLOGY/CYTOLOGY ORDERABLES Performing Organization Address [facility] [place] [address] * (ABNORMAL) BLOOD GAS 2 ARTERIAL (09/21/2016 [...] [place] Co de Phone Number [facility] [place] [address] * (ABNORMAL) BLOOD GAS 2 ARTERIAL (09/21/2016 [...] [facility] Temp Art 35.6 Celsius [facility] Blood specimen (specimen) 09/21/2016 8:18 AM EST 09/21/2016 8:18 AM EST Alirio Esparza MD POINT OF CARE TEST ORDERABLES [facility] [place] [address] * Prepare RBC (09/21/2016 7:05 AM EST) Dispensed? Yes [facility] Blood specimen (specimen) 09/21/2016 7:05 AM EST 09/21/2016 7:02 AM EST Alirio Esparza MD BLOOD BANK PRODUCT ORDERABLES [facility] [place] [address] * POCT Glucose (09/21/2016 6:42 AM EST) Glucose, POC 104 65 - 199 mg/dL [facility] Comment: Supplemental ranges: <140 mg/dL before meals <180 mg/dL all other times of the day Blood specimen (specimen) 09/21/2016 6:42 AM EST 09/21/2016 6:42 AM EST Alirio Esparza MD POINT OF CARE TEST ORDERABLES Performing Organization Address [facility] Co de Phone Number [facility] [place] [address] documented in this encounter Visit Diagnoses Diagnosis [...] dose on Wed09/21/16 at 1230, Until Discontinued, [place] teeth, Routine Given 09/25/2016 9:40 AM EST [...] if phenyleprine and/or vasopressin ineffective.Call pager # [phone] if initiated., Routine Rate/Dose Change 09/21/2016 2:27 [...] 2.0 L/min/M2. Maximum volume 2 L. Call customs house broker for additional fluid orders: pager #[phone]. Rate/Dose Verify 09/22/2016 10:00 AM EST 10 mL/hr 10 mL/hr Rate/Dose Change 09/22/2016 8:12 AM EST 10 mL/hr 10 mL/h r Rate/Dose Verify 09/21/2016 2:00 PM EST 100 mL/hr 100 mL/ hr sodium chloride 0.9% infusion 10-30 mL/hr, Intravenous, DAILY PRN, Starting on Wed09/21/16 at 1206, Until Wed09/22/16 at 1036, Side port TKO rate, per [facility] nursing protocol. Rate/Dose Verify 09/21/2016 5:00 PM EST 30 mL/hr 30 mL/hr Rate/Dose Verify 09/21/2016 4:00 PM EST 30 mL/hr 30 mL/h r Rate/Dose Verify 09/21/2016 3:00 PM EST 30 mL/hr 30 mL/h r sodium chloride 0.9% infusion 10-30 mL/hr, Intravenous, DAILY PRN, Starting on Wed09/21/16 at 1206, Until Wed09/22/16 at 1036, Side port TKO rate, per [facility] nrusing protocol. Rate/Dose Verify 09/22/2016 10:00 AM [...] 0600)1600 (Due - Provider: Kendall Martínez [facility]) aspirin chewable tablet 81 [...] dose on Wed09/21/16 at 1230, Until Discontinued, [place] teeth, Routine 0900 (Not Given - Provider: [...] Routine documented in this encounter Care Teams Expediter Service Order Relationship Specialty Start Date End Date Deborah Quiroga APRN PCP - General Family Medicine 03/24/16 02/04/23 documented as of this encounter
--- OUTSIDE RECORDS SUMMARY | 2024-05-11 14:42 | XMS_ITS | Encounter Summary ---
[place] [address] Care Team Providers Care Adult Parole Officer Name Role Phone Junaid, Deborah Shields APRN Primary Care Provider [phone] Reason for Visit * Auth/Cert Specialty Diagnoses / Procedures Referred By Crispin t Referred To Contact Diagnoses Aortic stenosis Procedures PRO REPLACE AORT VALV, PROSTH VALV @REPLACE AORTIC VALVE, OPEN, W\CPB, W\PROSTHETIC VALVE (WRVU 41.32) Referral ID Status Reason Start Date Expiration Date Visits Re quested Visits Authorized [id number] 1 1 Encounter Details Date Type Department Care Team (Late st Contact Info) Description 09/21/2016 7:25 AM EST Anesthesia Event [place] [address] Luis Enrique Quarles MD [facility] [place] [address] Henrik Cooper MD [facility] [place] [address] Anesthesia Record Procedure Summary Procedure Name Responsible [...] 0819 Sternotomy 0844 CV Bypass init 1009 Event Set Up Specialist 1014 An Clamp Remove 1031 CP [...] Tube 09/21/16 (#28 angled chest tube to [place]: left: pericardial); Left; 09/22/16; 1119 09/21/16 0000 by Toshia Alejandre RN 09/22/16 1119 by Vero Bonilla RN Chest Tube 09/21/16 (#28 straig ht chest tube to [place]; right: mediastinal'); Right; mediastinum; 09/22/16; 1118 09/21/16 0000 by Toshia Alejandre RN 09/22/16 1118 by Vero Bonilla RN (RETIRED) Peripheral IV Line - Single Lumen 09/21/16; 0648; metacarpal vein (top of hand), left; vylm-djy-hrngey catheter system; 20 gauge; valdo Arteaga; 09/23/16; [...] MD - 09/21/2016 6:50 PM EST [facility] Department of Anesthesiology Post-procedure Note Patient: Purnima Thacker Procedure Summary Date Anesthesia Start Anesthesia Stop Room / Location 09/21/16 07 1152 [facility] OR 16 / [facility] MAIN OR Procedure Diagnosis Surgeon Responsible Provider @REPLACE AORTIC VALVE, OPEN, W\CPB, W\PROSTHETIC VALVE (WRVU 41.32) (N/A Chest); @AORTOPLASTY FOR SUPRAVALVULAR STENOSIS (WRVU 29.33) (N/A Chest) () Alirio Francisco MD Clark, Jeffrey A, MD All Anesthesia Providers: Anesthesiologist: Luis Enrique Quarles MD Black Pickler: Henrik Cooper MD Last (1hr) Vitals: BP Temp 36.1 ??C (97 ??F) (09/21/16 1800) Pulse 79 (09/21/16 1800) Resp 11 (09/21/16 1800) SpO2 98 % (09/21/16 1800) Patient Location: [facility] Level of Consciousness: Sedated (Pharmacologic/Intentional) Pain [facility] [place]emat[facility] Oncology [address] [place], [place] [phone] 05/12/2024 10:00 AM EDT Office Visit [place]ematology [place] [address] Markel Borjas MD [facility] [address] H[place]ATOLOG[place] [address] 03/01/2025 4:15 PM EDT Office Visit Dermatology at [place] [address] [place] [phone] Marek Bonilla MD [address], [place] [address] documented as of this encounter Visit Diagnoses [...] mg documented in this encounter Care Teams Adult Parole Officer Relationship Specialty Start Date End Date Deborah Quiroga APRN PCP - General Family Medicine 03/24/16 02/04/23 documented as of this encounter
--- OUTSIDE RECORDS SUMMARY | 2024-05-11 14:42 | XMS_ITS | Encounter Summary ---
Author Organization [facility] Address [facility] [place] [address] Care Team Providers Care Deputy Sheriff Generalist/Bailiff Name Role Phone Deborah Quiroga ANURAG Primary Care Provider [phone] Encounter Details Date Type Department Care Team (Latest Contact Info) Description 08/18/2016 4:40 PM EST [place] [phone] Aortic valve stenosis, unspecified etiology Social History [facility] H[facility] Oncology [address] [place] [address] 05/12/2024 10:00 AM EDT Office Visit [place] [phone] Markel Borjas MD [facility] [address] [place] [address] 03/01/2025 4:15 PM EDT Office Visit Dermatology at [address] [phone] Marek Bonilla MD [address], [place] [address] documented as of this encounter Procedures Procedure Name Priority Date/Time Associated Diagnosis Comments ABORH RECHECK STATUS Routine 08/18/2016 4:50 PM EST TYPE AND SCREEN, SDP (FUTURE SURGERY, [facility] SAME DAY PROGRAM ONLY) Routine 08/18/2016 4:50 [...] 4:50 PM EST) ABORH Type Recheck Completed [facility] Blood specimen (specimen) 08/18/2016 4:50 PM EST 08/18/2016 5:27 PM EST Narrative Resulting Agency Comment Spec In Lab Alirio Esparza MD BLOOD BANK LAB [place] [facility] Organization Address City/State/ZIP Co de Phone Number [facility] [place] [address] * Antibody screen (08/18/2016 4:50 PM EST) Ab Screen Interp Negative [facility] Expires at 2359 on: 09/24/2016 [facility] Comment: Corrected from 09/17/16 12:00 [Unknown] on 09/09/16 02:32 by Shireen Treviño Blood specimen (specimen) 08/18/2016 4:50 PM EST 08/18/2016 5:11 PM EST Narrative Resulting Agency Comment Spec In Lab Alirio Esparza MD BLOOD BANK LAB [place] Performing Organization Address City/[facility]/ZIP Co de Phone Number [facility] [place] [address] * ABO/Rh Typing (08/18/2016 4:50 PM EST) ABORH Type B Pos [facility] Blood specimen (specimen) 08/18/2016 4:50 PM EST 08/18/2016 5:11 PM EST Narrative Resulting Agency Comment Spec In Lab Alirio Esparza MD BLOOD BANK LAB [place] Performing Organization Address [facility] Co de Phone Number [facility] [place] [address] * Basic Metabolic Panel (non-fasting) (08/18/2016 4:50 PM EST) [facility] Glucose 82 65 - 199 mg/dL [facility] Comment:Diabetes: >=200 mg/d L plus symptoms Blood Urea Nitrogen 12 8 - 18 mg/dL [facility] [...] the following links into your internet browser. [email or web address] Blood specimen (specimen) 08/18/2016 4:50 PM EST 08/18/2016 5:03 PM EST Narrative Resulting Agency Comment Spec In Lab Alirio Esparza MD CHEMISTRY ORDERABLE S [facility] [place] [place] [address] documented in this encounter Visit Diagnoses Diagnosis Aortic valve stenosis, unspecified etiology Chronic idiopathic neutropenia Other neutropenia documented in this encounter Care Teams Deputy Sheriff Generalist/Bailiff Relationship Specialty Start Date End Date Deborah Quiroga APRN PCP - General Family Medicine 03/24/16 02/04/23 documented as of this encounter
--- OUTSIDE RECORDS SUMMARY | 2024-05-11 14:42 | XMS_ITS | Encounter Summary ---
Author Organization [facility] Address [facility] [place] [address] Care Team Providers Care Dust Collector Name Role Phone Ashley Quirogan Cornelius ANURAG Primary Care Provider [phone] Encounter Details Date Type Department Care Team (Late st Contact Info) Description 08/11/2016 Telephone Hematology [place] [phone] Markel Borjas MD [facility] [address] HEMATOLOGY [place] [address] Social History Tobacco Use Types Packs/Day Years [...] [facility] Hematology Oncology [address] [place] [address] 05/12/2024 10:00 AM EDT Office Visit [place]ology [place] [address] Markel Borjas MD [facility] [address] HEMATOLOGY [place] [address] 03/01/2025 4:15 PM EDT Office Visit Dermatology at [place] [address] [phone] Marek Bonilla MD [address] [place] [address] documented as of this encounter Visit Diagnoses Not on filedocumented in this encounter Care Teams Dust Collector Relationship Specialty Start Date End Date Deborah Quiroga APRN PCP - General Family Medicine 03/24/16 02/04/23 documented as of this encounter
--- OUTSIDE RECORDS SUMMARY | 2024-05-11 14:42 | XMS_ITS | Encounter Summary ---
Author Organization [facility] Address [facility] [place] [address] Care Team Providers Care Clay Caster Name Role Phone Deborah Quiroga APRN Primary Care Provider Encounter Details Date Type Department Care Team (Late st Contact Info) Description 07/17/2016 9:00 AM EST Office Visit Hematology [place] [address] Markel Borjas MD [facility] [place] [address] Neutropenia, unspecified type Social History Tobacco Use [...] 07/17/2016 9:00 AM EST Hematology Outpatient Clinic [facility] Hematology Outpatient Consult Note [...] TOUCH PREP, CLOT SECTION, CORE ??BIOPSY); [OSR# [id number], COLLECTED 06/23/2016, 19 SLIDES]: ?1. ??Normocellular marrow [...] a clonal lymphoproliferative or myeloproliferative disorder (OSR# [id number]) Chromosome analysis on the marrow aspirate revealed [...] 24 hour(s)). Labs will be drawn at [facility] next week Imaging As above [...] leukopenia. Will consi kanwal talking to pt's test equipment mechanic about a switch from ACEI to ARB [...] [facility] [place] [place] [address] Date: 07/17/16 Patient Name: Purnima Thacker : 1955 Diagnosis: neutropenia Referral to [site]: [facility] Orders: ? Labs: Fax results to . [x] Draw CBC, copper level, CMV PCR, mononucleosis screen on 07/20 Repeat CBC on 07/30 (to measure response of WBC after Neulasta) ? Growth factor: [x] Neulasta 6mg SQ injection x 1 on 07/20/2016 Signature: Markel Borjas MD beeper # [id number] documented in this encounter Plan of Treatment Upcoming Encounters Date Type Department Care Team (Late st Contact Info) Description 05/12/2024 9:00 AM EDT Laboratory Appointment Lab at [facility] [place] Hematology Oncology [address] [place] [address] 05/12/2024 10:00 AM EDT Office Visit Hematology [place] [phone] Markel Borjas MD [facility] [place] [address] 03/01/2025 4:15 PM EDT Office Visit Dermatology at [address] [place] [address] Marek Bonilla MD [address], [place] DERMATOLOGY [place], [place] [id number] documented as of this encounter Results * [...] MD HEMATOLOGY ORDERAB LES Performing Organization Address City/[facility]/ZIP Co de Phone Number EXTERNAL LAB * Mononucleosis Screen (07/20/2016 10:30 AM EST) [facility] Mononucleosis Screen neg neg - neg EXTERNAL LAB Blood specimen (specimen) 07/20/2016 10:30 AM EST Markel Borjas MD IMMUNOLOGY ORDERAB LES Performing Organization Address City/[facility]/ZIP Co de Phone Number EXTERNAL LAB * Copper, serum (07/20/2016 10:30 AM EST) Pathologist [facility] Copper (NOVEMBER) 1.09 0.75 - 1.45 EXTERNAL LAB Blood specimen (specimen) 07/20/2016 10:30 AM EST Markel Borjas MD LAB SEND OUT ORDER JODIE Performing Organization Address City/[facility]/ZIP Co de Phone Number EXTERNAL LAB * CMV PCR, Quantitative (07/20/2016 10:30 AM EST) [facility] CMV PCR,Quantitati ve undetected EXTERNAL LAB Blood specimen (specimen) 07/20/2016 10:30 AM EST Markel Borjas MD MOLECULAR ORDERABL ES Performing Organization Address City/[facility] Co de [...] ORDERAB LES Performing Organization Address [facility] de Phone Number EXTERNAL LAB documented in this encounter Visit Diagnoses Diagnosis Neutropenia, unspecified type Chronic idiopathic neutropenia Other neutropenia documented in this encounter Care Teams Clay Caster Relationship Specialty Start Date End Date Deborah Quiroga, FLUE GAS ANALYST PCP - General Family Medicine 03/24/16 02/04/23 documented as of this encounter
--- OUTSIDE RECORDS SUMMARY | 2024-05-11 14:42 | XMS_ITS | Encounter Summary ---
[place] [address] Care Team Providers Care Licensed Guide Name Role Phone Ashley Quirogan Cornelius ANURAG Primary Care Provider [phone] Reason for Visit * Reason Onset Date Comments Medical Care Coordination 09/14/2016 Encounter Details Date Type Department Care Team (Late st Contact Info) Description 09/14/2016 Telephone [place]ematology [place] [phone] Alexandrea Greenwood RN Medical Care Coordination Social [...] 09/14/2016 9:10 AM EST Message received from racing secretary and handicapper: Injection/Infusion Referral Call placed to [facility] Infusion Room Spoke charis Bragg. Services to be provided for pt are: Miles 09/16/16 Mahsa confirmed they would provide services to pt and would contact with appointment time. Pt aware to expect the phone call ??orders faxed to [phone]). documented in this encounter Plan of Treatment Upcoming Encounters Date Type Department Care Team (Late st Contact Info) Description 05/12/2024 9:00 AM EDT Laboratory Appointment Lab at [facility] On[place] [address] [place] [address] 05/12/2024 10:00 AM EDT Office Visit [place]ology [place] [address] Markel Borjas MD [facility] [address] HEMATOLOGY [place] [address] 03/01/2025 4:15 PM EDT Office Visit Dermatology at [place] [address] [place] [phone] Marek Bonilla MD [address], [place] [address] documented as of this encounter Visit Diagnoses Not on filedocumented in this encounter Care Teams Licensed Guide Relationship Specialty Start Date End Date Deborah Quiroga APRN PCP - General Family Medicine 03/24/16 02/04/23 documented as of this encounter
--- OUTSIDE RECORDS SUMMARY | 2024-05-11 14:42 | XMS_ITS | Encounter Summary ---
[place] [address] Care Team Providers Care Requirements Engineer Name Role Phone Deborah Quiroga ANURAG Primary Care Provider [phone] Reason for Visit * Reason Onset Date Comments Medical Care Coordination 07/31/2016 Encounter Details Date Type Department Care Team (Late st Contact Info) Description 07/31/2016 Telephone Hematology [place] [phone] Alexandrea Greenwood RN Medical Care Coordination Social [...] 08/04/15 RN spoke with Aydee of the [facility] lab who states they can draw pt's cbc on 08/04/15, RN faxed lab req to [phone] at Aydee's request. RN instructed pt on Dr. Borjas's direction above. Pt verbalized understanding. documented in this encounter Plan of Treatment Upcoming Encounters Date Type Department Care Team (Late st Contact Info) Description 05/12/2024 9:00 AM EDT Laboratory Appointment [place] [facility] [place] [address] [place] [address] 05/12/2024 10:00 AM EDT Office Visit [place]ematology [place] [address] Markel Borjas MD [facility] [address] [place] [address] 03/01/2025 4:15 PM EDT Office Visit Dermatology at [place] [address] [facility] [address] [place] [phone] Marek Bonilla MD [address], [place] [address] documented as of this encounter Visit Diagnoses Not on filedocumented in this encounter Care Teams Requirements Engineer Relationship Specialty Start Date End Date Deborah Quiroga, AIRBRUSH PAINTER PCP - General Family Medicine 03/24/16 02/04/23 documented as of this encounter
--- OUTSIDE RECORDS SUMMARY | 2024-05-11 14:42 | XMS_ITS | Encounter Summary ---
[place] [address] Care Team Providers Care Therapy Tech Name Role Phone Ashley Quirogazac Shields APRN Primary Care Provider [phone] Reason for Visit * Auth/Cert Specialty Diagnoses / Procedures Referred By Crispin t Referred To Contact Diagnoses Aortic stenosis Procedures PRO REPLACE AORT VALV, PROSTH VALV @REPLACE AORTIC VALVE, OPEN, W\CPB, W\PROSTHETIC VALVE (WRVU 41.32) Referral ID Status Reason Start Date Expiration Date Visits Re quested Visits Authorized [id number] 1 1 Encounter Details Date Type Department Care Team (Late st Contact Info) Description 09/21/2016 7:30 AM EST - 09/21/2016 12:04 PM EST Surgery [place] [address] Alirio Esparza MD @REPLACE AORTIC VALVE, OPEN, [...] Patient Age: 61 y.o. Birthdate: 1955 Language: Persian Race: White Ethnicity: Not nor Admit Date: 09/21/2016 Discharge Date: 09/25/2016 Attending Physician: Alirio Esparza MD Follow-up Recommendations for Providers: Please continue routine management of cardiovascular risk factors including blood pressure, lipids,glucose, etc. Please note any changes to medications. Patient to follow-up with PCP, Deborah Quiroga APRN, in 1-2 weeks. Patient to follow-up with Technical Designer, Dr. Antelmo Burrell, in two weeks. Patient to follow-up with Cardiac Surgery, Dr. Alirio Esparza, to be scheduled for before 10/19/2016, with CXR, EKG, and Echo. Inpatient Provider Contact Information: [facility] Section [facility] [address] FAX [phone] Discharge Diagnoses (Hospital Problems) Primary Diagnoses: Secondary [...] 41.32) performed by Alirio Esparza MD at [facility] OR ??? Pro aortoplas for supravalv sten N/A 09/21/2016 @AORTOPLASTY FOR SUPRAVALVULAR STENOSIS (WRVU 29.33) performed by Alirio Esparza MD at [facility] OR Prior To Admission Medications [...] Hospital Course: Purnima Thacker was admitted to [facility] on 09/21/2016 via the Same Day [...] Alirio Esparza and/or the Cardiac Surgery Physician Grain Weigher Team may be reached at . Antibiotic [...] to your dentist. Please refer to the [place] [...] Dr. Alirio Jones. You may use a Rosa Sanchez Track or treadmill but avoid any pulling [...] low fat, low cholesterol, [place] Diet. Driving: No driving until [...] to see your primary care physician, Deborah Qurioga APRN, in one-to-two weeks or as soon [...] AM Markel Borjas MD [facility] [phone] Future Orders Complete By Expires Echocardiogram Transthoracic([place]) [JSY196 Custom] 10/18/2016 (Approximate) 09/18/2017 Process Instructions: If the Echocardiogram is to be PERFORMED in a DH location other than [place]--STOP and order [id number], Echocardiogram South/External. Scheduling Instructions: Questions: Is a Bubble Study requested?: No Does the patient have Congenital Heart Disease?: No Does patient require sedation?: None GA rationale: Should this service be billed to the research sponsor?: EKG 12 Lead [EKG1 Custom] 10/18/2016 (Approximate) 09/25/2017 Process Instructions: Scheduling Instructions: Questions: Which DH location will this be performed?: [place] Is a rhythm strip needed?: No If EKG Reason is Pre-op Evaluation, indicate diagnosis for surgery.: Should this service be billed to the research sponsor?: XR Chest PA & Lateral (Generic) [[id number] Custom] 10/18/2016 (Approximate) 09/25/2017 Process Instructions: Scheduling Instructions: Questions: Where will study be performed?: [facility]- Radiology Portable exam?: No Reason for exam and clinical history: s/p AVReplacement, patch annuloplasty 1 month f/u Other pertinent information: Stat read required?: Date of injury if applicable: Requested Time: Referral to Cardiac Rehab [LVG660 Custom] As directed Process Instructions: If no progress note charted, please enter Clinical details in comments. Scheduling Instructions: Questions: My question or request is: s/p AVR. Cardiac rehab at [facility] Referral to Home Health - at DISCHARGE [IOM7103 CPT(R)] As directed Process Instructions: Scheduling Instructions: Comments: DOCUMENTATION FOR VNA SERVICES (INCLUDING THOSE PATIENTS WITH MEDICARE COVERAGE REQUIRING HOME VNA SERVICES AND/OR HOSPICE SERVICES) PATIENT'S LOCATION: Purnimakary Gallego[address] [address] (home) No relevant phone numbers on file. Protection Agent's Name: self In discussion with the attending physician, it is certified that this patient is under their care and that they, or a Nurse Practitioner, or Physician Grain Weigher who is working directly with them, hada [...] [facility] PHONE: [phone] FAX: [phone] RN orders: Cardiopulmonary assessment, incisional assessment, assess [...] issues please call the Cardiac SurgeryOffice at [phone] FOR MEDICARE ONLY: In discussion with the [...] noted. Questions: Agency name and contact information: [facility] Patient location post discharge: home What services are requested: Registered Nurse Physical Therapy Occupational Therapy Start date: Responsible MD post discharge contact info: Arrangements for VNA/home care: As above. VN RN OR PCP TO PLEASE REMOVE CHEST TUBE SUTURES ON OR AFTER 09/30/16 Signed: Crispin Aranda PA-C 09/25/2016 [facility] [address] FAX [phone] Date: 09/25/2016 CC: ANURAG Alford Caryn E, APRN [address] [place] [address] documented in this encounter Discharge Instructions * [...] Alirio Esparza and/or the Cardiac Surgery Physician Grain Weigher Team may be reached at . Antibiotic [...] to your dentist. Please refer to the [place] [...] Dr. Alirio Jones. You may use a Rosa Sanchez Track or treadmill but avoid any pulling [...] low fat, low cholesterol, [place] Diet. Driving: No driving until [...] PM EST Cardiac Surgery Progress Note: ID: [id number] S/p AVR, patch aortoplasty POD#2. PMH of [...] Gas) No results found for: PHART, PO2ART, LPL4NSL Assessment/Plan: TPW out this am. (+) BM. [...] Signed: Crispin Aranda PA-C 09/24/2016 Team pager: [phone]; [phone] after 5pm [facility] Section of Cardiac Surgery * Leonor Henson S, VP ORGANIZATIONAL DEVELOPMENT - 09/23/2016 10:48 AM EST Cardiac Surgery Progress Note: ID: [id number] s/p AVR, patch aortoplasty POD#2. PMH of [...] Gas) No results found for: PHART, PO2ART, EKI0VXQ Assessment/Plan: s/p AVR, patch aortoplasty POD#2. PMH of Neutropenia, HLD, HTN, Depression, obesity, . Transferred from [facility] yesterday and doing well. Pathway. Will [...] ICCU DW Attending Surgeon on rounds. Signed: Leoonr Henson APRN [facility] Section of Cardiac Surgery Date: 09/23/2016 * Nico Palacios PA - 09/22/2016 9:56 AM EST Cardiac Surgery Progress Note: ID: [id number] s/p AVR, patch aortoplasty POD#1. PMH of [...] NT, ND, soft. Ext: Moves all extremities. [place], well perfused. Incisions: C/D/I Tubes/Lines/Drains: PIV, leanna, [...] Attending Surgeon on rounds. Signed: EKATERINA KIM [facility] Section of Cardiac Surgery Date: 09/22/2016 [...] Outcome (s) achieved Date Met: 09/25/16 09/25/16 7824 Coping/Psychosocial Plan Of Care Reviewed With patient [...] health, home with outpatient services Lalitha Cohen [facility] Pager: [phone] Inpatient Physical Therapy Patient status, treatment interventions, and goals discussed with student. I am in agreement with all details and associated flowsheet rows as documented and was present for all aspects of the patient treatment session. Nery Jaramillo, CANDY Pager [phone] Problem: Acute Rehab Services Goal & Intervention Plan Goal: Bed Mobility Goal Stand Alone Therapy Goal Outcome: Ongoing (Interventions Implemented as Appropriate) 09/22/16 1611 09/25/16 0947 Bed Mobility Goal Bed Mobility Goal, Time to Achieve 4 days -- Bed Mobility Goal, Activity Type scoot/bridge;supine to sit/sit to supine -- Bed Mobility Goal, Lawrence Level independent -- Bed Mobility Goal, Additional [...] Achieve 4 days -- Gait Training Goal, [place] Level independent -- Gait Training Goal, Distance [...] assist, home with home health Lalitha Cohen RUSTA Pager: [phone] Inpatient Physical Therapy Patient status, treatment interventions, and goals discussed with student. I am in agreement with all details and associated flowsheet rows as documented and was present for all aspects of the patient treatment session. Nery Jaramillo, HOME DELIVERY DRIVER Pager [phone] Problem: Acute Rehab Services Goal & Intervention Plan Goal: Bed Mobility Goal Stand Alone Therapy Goal Outcome: Ongoing (Interventions Implemented as Appropriate) 09/22/16161009/23/161411 Bed Mobility Goal Bed Mobility Goal, Time to Achieve 4 days -- Bed Mobility Goal, Activity Type scoot/bridge;supine to sit/sit to supine -- Bed Mobility Goal, Lawrence Level independent -- Bed Mobility Goal, Additional [...] Achieve 4 days -- Gait Training Goal, [place] Level independent -- Gait Training Goal, Distance [...] days -- Transfer Training Goal, Activity Type oya-fn-lhtel/issva-yz-jru;bys-vc-fgsra/wtzgk-by-vof -- Transfer Train Goal, [place] Level independent -- Transfer Training Goal, Additional Goal abides sternal precautions -- Transfer Training Goal, Outcome -- goal met * Consult Note - Jana Crenshaw RN - 09/23/2016 9:41 AM EST [facility] CARDIAC [...] Another Service: (cardiac rehab) NICOLE HERNANDEZ, PT Pager:[phone] Inpatient Physical Therapy Problem: Acute Rehab Services Goal & Intervention Plan Goal: Bed Mobility Goal Stand Alone Therapy Goal Outcome: Ongoing (Interventions Implemented as Appropriate) 09/22/161610 Bed Mobility Goal Bed Mobility Goal, Time to Achieve 4 days Bed Mobility Goal, Activity Type scoot/bridge;supine to sit/sit to supine Bed Mobility Goal, Lawrence Level independent Bed Mobility Goal, Additional Goal able to abide sternal precautions during transfers Goal: Gait Training Goal Stand Alone Therapy Goal Outcome: Ongoing (Interventions Implemented as Appropriate) 09/22/161610 Gait Training Goal Gait Training Goal, Date Established 09/22/16 Gait Training Goal, Time to Achieve 4 days Gait Training Goal, Lawrence Level independent Gait Training Goal, Distance to Achieve ascend and descends 2 steps independently Goal: Goal Transfer Training Stand Alone Therapy Goal Outcome: Ongoing (Interventions Implemented as Appropriate) 09/22/161610 Goal Transfer Training Transfer Training Goal, Time to Achieve 4 days Transfer Training Goal, Activity Type zkb-ia-vsykc/ppseq-sh-cka;grx-xb-qpqqx/bridd-fl-lkp Transfer Train Goal, Lawrence Level independent Transfer Training Goal, Additional Goal [...] of completing AD's at home, chooses her zyfqjr-kr-yzk, Martha Thacker (home) for her DPOAH, 2nd choice in friend, Nitesh Rad, [place], [place] Current Coping/Education/Information Needs: patient sitting up [...] close by, Rashad & Raymond, and her pxcexm-yv-gho Martha Thacker who she has chosen to be her DPOAH. Also has a friend Nitesh Leroy who lives in [place], [place], also her DPOAH choice. Behavioral Health History: none on file in e[facility] Substance Use/Abuse: none on file in e[facility] Other Pertinent/Service Specific Information: none Health/Prescription Coverage: Primary Insurance: [employer] Secondary Insurance: none Prescription Coverage: yes, per patient no issues Preferred Pharmacy: ?? Other: none Primary Care Provider: Deborah Quiroga, VP ORGANIZATIONAL DEVELOPMENT [phone] Patient/Caregiver Goals of Treatment: per medical team recommendations at discharge for CT surgery Potential Needs for Transition of Care: Rehab/SNF: TBD Home Health: TBD DME: no Dialysis: no Community Resources: non3 Transportation: ride home with a friend Other: none Anticipated Barriers to Discharge/Special Considerations: none anticipated at this time Plan: patient will need VNA services at discharge. The patient/international sales representative has been provided a list of Home Health Agencies/DME vendors which servetheir preferred geographic area. A letter describing our affiliations was reviewed with them and they were educated about their right to choose where referrals are placed. Patient requests referral to: [facility]. PHONE: [phone] FAX: [phone] Expected date of discharge: Fri/Sat? CM called VNA to confirm referral, talked with VALDO Bunn/intake who stated she was familiar w/patient & would monitor her progress through curaspan. Referral routed to the Avionics Manager for matching with agency/vendor and to provide any required information. A member of the Care Management team will continue to monitor progress, follow for continuity of care and assist with transition of care planning. Amanda Moreno RN Pager: [phone] * Op Note - Alirio Esparza MD - 09/21/2016 12:53 PM EST 09/23/2016 Purnima Thacker 1955 [id number] Preoperative Diagnosis: Symptomatic aortic stenosis Postoperative Diagnosis: Symptomatic aortic stenosis Procedure: Aortic valve replacement: Bovine Pericardial 25 mm Surgeon: Alirio Esparza M.D. Grain Weigher: Philip BALL Anesthesia: General endotracheal anesthesia Drains: [...] applied. The patient was transported to the [facility] on levo. All counts were correct. [...] Operative Note Patient Name: Purnima Thacker : [id number] MR#: [id number] Case Date: 09/21/2016 Surgeon: Surgeon(s) and Role: * Alirio Esparza MD - Primary * Nico Palacios PA - Physician Grain Weigher Preoperative diagnosis: Postoperative diagnosis: Procedure(s) (LRB): @REPLACE [facility] On[facility] [address] [place] [address] 05/12/2024 10:00 AM EDT Office Visit [place] [address] Markel Borjas MD [facility] [address] HEMATOLOGY [place] [address] 03/01/2025 4:15 PM EDT Office Visit Dermatology at [place] [address] [place] [address] Marek Bonilla MD [address], [place] [address] Scheduled Orders Name Type Priority Associated Diagnoses [...] IMPLANTABLE DEVICES SCAN 09/26/2016 12:00 AM EST COMPUTER SYSTEMS ARCHITECT SCAN 09/26/2016 12:00 AM EST POTASSIUM Routine [...] SCAN EXT O RDR/RSLT * SCAN DOC: COMPUTER SYSTEMS ARCHITECT (09/26/2016 12:00 AM EST) Anatomical Region Laterality [...] [facility] [place] [address] * (ABNORMAL) Differential, Automated (09/24/2016 9:56 AM EST) Pathologist [facility] Neutrophil % 76.8 % [facility] Neutrophil Absolute 7.79(H) 1.70 - 6.10 x10(3)/mc L [facility] Lymph % 11.1 % [facility] Lymphocytes Abs 1.1 0.9 - 3.2 x10(3)/mc L [facility] Monocyte % 8.5 % [facility] Monocyte Abs 0.9 0.3 - 0.9 x10(3)/mc L [facility] Eos % 0.5 % [facility] Eosinophils Abs 0.0 0.0 - 0.4 x10(3)/mc L [facility] Basophil % 0.2 % [facility] Baso Absolute 0.0 0.0 [...] [facility] [place] [address] * (ABNORMAL) Hemogram (09/24/2016 9:56 AM EST) [...] MEDICAL CENTER [facility] NRBC% auto 1.1 % [facility] NRBC Absolute 0.110(H) 0.000 - 0.000 x10(3)/mc L [facility] Blood specimen (specimen) 09/24/2016 9:56 AM EST 09/24/2016 10:04 AM EST Narrative Resulting Agency Comment Spec In Lab Alirio Esparza MD HEMATOLOGY ORDERABL ES [facility] [place] [address] * (ABNORMAL) Basic Metabolic Panel (non-fasting) (09/24/2016 [...] the following links into your internet browser. [email or web address] Blood specimen (specimen) 09/24/2016 9:56 AM EST 09/24/2016 10:04 AM EST Narrative Resulting Agency Comment Spec In Lab Alirio Esparza MD CHEMISTRY ORDERABLE S [facility] [place] [address] * XR Chest PA & Lateral (Generic) [...] [facility] [place] [place] [address] * POCT Glucose (09/22/2016 8:17 AM EST) Glucose, POC 131 65 - 199 mg/dL [facility] Comment: Supplemental ranges: <140 mg/dL before meals <180 mg/dL all other times of the day Blood specimen (specimen) 09/22/2016 8:17 AM EST 09/22/2016 8:17 AM EST Alirio Esparza MD POINT OF CARE TEST ORDERABLES [facility] [place] [address] * POCT Glucose (09/22/2016 4:01 AM EST) Glucose, POC 135 65 - 199 mg/dL [facility] Comment: Supplemental ranges: <140 mg/dL before meals <180 mg/dL all other times of the day Blood specimen (specimen) 09/22/2016 4:01 AM EST 09/22/2016 4:01 AM EST Alirio Esparza MD POINT OF CARE TEST ORDERABLES [facility] [place] [address] * Scan, Peripheral Blood (09/22/2016 4:00 AM EST) Plat estimate Normal [facility] RBC Morphology Abnormal [facility] Macrocyte 1-5 /HPF [facility] Plat, Giant Less than 1 /HPF [facility] Blood specimen (specimen) 09/22/2016 4:00 AM EST 09/22/2016 4:34 AM EST Narrative Resulting Agency Comment Spec In Lab Alirio Esparza MD HEMATOLOGY ORDERABL ES Performing Organization Address [facility]/ZIP Co de Phone Number [facility] [place] [address] * Electrolytes panel (09/22/2016 4:00 AM EST) Pathologist [facility] Sodium 145 135 - 145 mmol/L WHITE [...] MD CHEMISTRY ORDERABLE S Performing Organization Address City/[facility]/ZIP Co de Phone Number [facility] [place] [address] * (ABNORMAL) Differential, Automated (09/22/2016 4:00 AM EST) Neutrophil % 70.9 % [facility] Neutrophil Absolute 5.33 1.70 - 6.10 x10(3)/mc L [facility] Lymph % 9.1 % [facility] Lymphocytes Abs 0.7(L) 0.9 - 3.2 x10(3)/[facility] Monocyte % 18.0 % [facility] Monocyte Abs 1.4(H) 0.3 - 0.9 x10(3)/[facility] Eos % 0.0 % [facility] Eosinophils Abs 0.0 0.0 - 0.4 x10(3)/[facility] Basophil % 0.1 % [facility] Baso Absolute 0.0 0.0 - 0.1 x10(3)/[facility] LAB[facility] Immature Gran % 1.90 % [facility] Comment: Immature granulocytes(IG's)percentage and absolute count will include metamyelocytes, myelocytes, and promyelocytes. Blood smears from CBCs yielding IG's will be scanned manually for concordance. If this scan disagrees with the automated IG or if promyelocytes are noted, a manual differential will be performed. Immature Gran Absolute 0.14(H) 0.00 - 0.04 x10(3)/[facility] LAB[facility] Blood specimen (specimen) 09/22/2016 4:00 AM EST 09/22/2016 4:34 AM EST Narrative Resulting Agency Comment Spec In Lab Alirio Esparza MD HEMATOLOGY ORDERABL ES [facility] [place] [address] * (ABNORMAL) Hemogram (09/22/2016 4:00 AM EST) White Blood Cell 7.5 4.0 - 9.5 x10(3)/[facility] LAB[facility] Red Blood Cell 2.93(L) 4.00 - 5.21 x10(6)/[facility] Hemoglobin 9.2(L) 11.7 - 15.5 gm/dL [...] MEDICAL CENTER LABOR[facility] NRBC% auto 0.3 % [facility] NRBC Absolute 0.020(H) 0.000 - 0.000 x10(3)/mc L [facility] Blood specimen (specimen) 09/22/2016 4:00 AM EST 09/22/2016 4:34 AM EST Narrative Resulting Agency Comment Spec In Lab Alirio Esparza MD HEMATOLOGY ORDERABL ES Performing Organization Address City/State/[facility] Co de Phone Number [facility] [place] [address] * (ABNORMAL) Cardiac Enzymes (09/22/2016 4:00 AM EST) Troponin-T 0.13(H) <=0.03 ng/mL [facility] Comment: 0.03 ng/mL: Represents the 99th percentile upper reference limit for normals. >0.03 ng/mL: Elevated cardiac troponin T level indicative of myocardial damage. Diagnosis of acute, evolving or recent CO requires a typical rise and gradual fall [...] consensus document of the Joint Society of Cardiology/[place] [employer] Committee for the redefinition of myocardial infarction. ??Journal of the [place] College of Cardiology 2000; 36: 959-969] Creatine Kinase 338(H) 0 - 160 unit/L [facility] Blood specimen (specimen) 09/22/2016 4:00 AM EST 09/22/2016 4:34 AM EST Narrative Resulting Agency Comment Spec In Lab Alirio Esparza MD CHEMISTRY ORDERABLE S Performing Organization Address [facility] de Phone Number [facility] [place] [address] * (ABNORMAL) Glucose, fasting (09/22/2016 4:00 AM [...] of Diabetes Mellitus, Position Statement from the [place] Diabetes Association. ??Diabetes Care, Volume 33, Supplement 1, Aug 2009 Blood specimen (specimen) 09/22/2016 4:00 AM EST 09/22/2016 4:34 AM EST Narrative Resulting Agency Comment Spec In Lab Alirio Esparza MD CHEMISTRY ORDERABLE S Performing Organization Address [facility] Co de Phone Number [facility] [place] [address] * (ABNORMAL) Creatinine (09/22/2016 4:00 AM EST) [facility] Creatinine 0.69(L) 0.70 - 1.20 mg/dL [facility] Comment: Please note that the pediatric reference intervals supplied above were not validated at [facility]. Results from pediatric patients should be interpreted in conjunction to the patient's age, height and muscle mass. Est Glomerular Filtration Rate >60 >=60 [facility] [...] the following links into your internet browser. [email or web address] Blood specimen (specimen) 09/22/2016 4:00 AM EST 09/22/2016 4:34 AM EST Narrative Resulting Agency Comment Spec In Lab Alirio Esparza MD CHEMISTRY ORDERABLE S Performing Organization Address City/[facility] Co de Phone Number [facility] [place] [address] * BUN (09/22/2016 4:00 AM EST) [facility] Blood Urea Nitrogen 10 8 - 18 mg/dL [facility] Blood specimen (specimen) 09/22/2016 4:00 AM EST 09/22/2016 4:34 AM EST Narrative Resulting Agency Comment Spec In Lab Alirio Esparza MD CHEMISTRY ORDERABLE S Performing Organization Address [facility]/ZIP Co de Phone Number [facility] [place] [address] * POCT Glucose (09/21/2016 9:59 PM EST) Glucose, POC 146 65 - 199 mg/dL [facility] Comment: Supplemental ranges: <140 mg/dL before meals <180 mg/dL all other times of the day Blood specimen (specimen) 09/21/2016 9:59 PM EST 09/21/2016 9:59 PM EST Alirio Esparza MD POINT OF CARE TEST ORDERABLES Performing Organization Address City/[facility]/ZIP Co de Phone Number [facility] [place] [address] * POCT Glucose (09/21/2016 7:26 PM EST) Glucose, POC 152 65 - 199 mg/dL [facility] Comment: Supplemental ranges: <140 mg/dL before meals <180 mg/dL all other times of the day Blood specimen (specimen) 09/21/2016 7:26 PM EST 09/21/2016 7:26 PM EST Alirio Esparza MD POINT OF CARE TEST ORDERABLES Performing Organization Address [facility] Co de Phone Number [facility] [place] [address] * POCT Glucose (09/21/2016 6:00 PM EST) Glucose, POC 146 65 - 199 mg/dL [facility] Comment: Supplemental ranges: <140 mg/dL before meals <180 mg/dL all other times of the day Blood specimen (specimen) 09/21/2016 6:00 PM EST 09/21/2016 6:00 PM EST Alirio Esparza MD POINT OF CARE TEST ORDERABLES Performing Organization Address City/[facility] Co de Phone Number [facility] [place] [address] * (ABNORMAL) BLOOD GAS 2 ARTERIAL (09/21/2016 4:42 PM EST) [facility] pH, Arterial 7.35(L) 7.35 - 7.45 WHITE [...] OF CARE TEST ORDERABLES Performing Organization Address [facility] Co de Phone Number [facility] [place] [address] * POCT Glucose (09/21/2016 4:07 PM EST) Pathologist [facility] Glucose, POC 150 65 - 199 mg/dL [facility] Comment: Supplemental ranges: <140 mg/dL before meals <180 mg/dL all other times of the day Blood specimen (specimen) 09/21/2016 4:07 PM EST 09/21/2016 4:07 PM EST Alirio Esparza MD POINT OF CARE TEST ORDERABLES Performing Organization Address [facility] de Phone Number [facility] [place] [address] * (ABNORMAL) Hemoglobin (09/21/2016 4:05 PM EST) [facility] Hemoglobin 9.9(L) 11.7 - 15.5 gm/dL [facility] Blood specimen (specimen) 09/21/2016 4:05 PM EST 09/21/2016 4:20 PM EST Narrative Resulting Agency Comment Spec In Lab Alirio Esparza MD HEMATOLOGY ORDERABL ES Performing Organization Address [facility] Phone Number [facility] [place] [address] * Potassium (09/21/2016 4:05 PM EST) [facility] Potassium 4.6 3.5 - 5.0 mmol/L WHITE [...] MD CHEMISTRY ORDERABLE S Performing Organization Address [facility] Co de Phone Number [facility] [place] [address] * POCT Glucose (09/21/2016 2:52 PM EST) Glucose, POC 117 65 - 199 mg/dL [facility] Comment: Supplemental ranges: <140 mg/dL before meals <180 mg/dL all other times of the day Blood specimen (specimen) 09/21/2016 2:52 PM EST 09/21/2016 2:52 PM EST Alirio Esparza MD POINT OF CARE TEST ORDERABLES Performing Organization Address [facility] Co de Phone Number [facility] [place] [address] * POCT Glucose (09/21/2016 1:51 PM EST) Glucose, POC 108 65 - 199 mg/dL [facility] Comment: Supplemental ranges: <140 mg/dL before meals <180 mg/dL all other times of the day Blood specimen (specimen) 09/21/2016 1:51 PM EST 09/21/2016 1:51 PM EST Alirio Esparza MD POINT OF CARE TEST ORDERABLES Performing Organization Address [facility] Co de Phone Number [facility] [place] [address] * POCT Glucose (09/21/2016 12:54 PM EST) Glucose, POC 128 65 - 199 mg/dL [facility] Comment: Supplemental ranges: <140 mg/dL before meals <180 mg/dL all other times of the day Blood specimen (specimen) 09/21/2016 12:54 PM EST 09/21/2016 12:54 PM EST Alirio Esparza MD POINT OF CARE TEST ORDERABLES [facility] [place] [address] * EKG 12 Lead (09/21/2016 12:26 PM EST) Ventricular rate 87 BPM MUSE SYSTEM Atrial Rate 87 BPM MUSE SYSTEM P-R Interval 256 ms MUSE SYSTEM QRS Duration 90 ms MUSE SYSTEM Q-T Interval 406 ms MUSE SYSTEM QTC Calculated (Bezet) 488 ms MUSE SYSTEM Calculated P [place] 24 degrees MUSE SYSTEM Calculated R [place] 21 degrees MUSE SYSTEM Calculated T [place] -5 degrees MUSE SYSTEM INTERPRETATION Sinus rhythm [...] course of the esophagus and below the [id number]. There is a right IJ PA catheter [...] the course of theesophagus and below the iivcm-cx-taim. There is a right IJ PA catheter [...] OF CARE TEST ORDERABLES Performing Organization Address [facility] Phone Number [facility] [place] [address] * (ABNORMAL) BLOOD GAS 2 ARTERIAL (09/21/2016 [...] [facility] Temp Art 36.7 Celsius [facility] Blood specimen (specimen) 09/21/2016 10:54 AM EST 09/21/2016 10:54 AM EST Alirio Esparza MD POINT OF CARE TEST ORDERABLES Performing Organization Address City/State/[facility] Co de Phone Number [facility] [place] [address] * Thrombin time (09/21/2016 10:50 AM EST) [...] MD HEMATOLOGY ORDERABLE S Performing Organization Address [facility] de Phone Number [facility] [place] [address] * Fibrinogen (09/21/2016 10:50 AM EST) Fibrinogen [...] MD HEMATOLOGY ORDERABLE S Performing Organization Address [facility] de Phone Number [facility] [place] [address] * APTT (09/21/2016 10:50 AM EST) [facility] Partial Thromboplastin Time 32 25 - 35 sec [facility] Comment: The recommended therapeutic range for full dose, unfractionated heparin at [facility] is 80 ? 114 seconds. The use of the anti-Xa (heparin) level rather than the PTT is recommended for monitoring anticoagulation intensity in critically ill patients receiving unfractionated heparin by continuous IV infusion. Blood specimen (specimen) 09/21/2016 10:50 AM EST 09/21/2016 10:56 AM EST Narrative Resulting Agency Comment Spec In Lab Luis Enrique Quarles MD HEMATOLOGY ORDERABLE S Performing Organization Address [facility] de Phone Number [facility] [place] [address] * (ABNORMAL) Prothrombin Time (09/21/2016 10:50 AM EST) Pathologist [facility] Prothrombin Time 18.7(H) 12.0 - 15.0 sec [...] [facility] [place] [address] * (ABNORMAL) Hemogram (09/21/2016 10:50 AM EST) [...] [facility]ICAL [facility]ENTER [facility] NRBC% auto 0.1 % [facility] NRBC Absolute 0.020(H) 0.000 - 0.000 x10(3)/mc L [facility] Blood specimen (specimen) 09/21/2016 10:50 AM EST 09/21/2016 10:56 AM EST Narrative Resulting Agency Comment Spec In Lab Luis Enrique Quarles MD HEMATOLOGY ORDERABLE S Performing Organization Address [facility] de Phone Number [facility] [place] [address] * Prepare Platelets, Apheresis (09/21/2016 10:30 AM EST) Dispensed? Yes [facility] Blood specimen (specimen) 09/21/2016 10:30 AM EST 09/21/2016 10:28 AM EST Alirio Esparza MD BLOOD BANK PRODUCT ORDERABLES Performing Organization Address [facility] Phone Number [facility] [place] [address] * (ABNORMAL) BLOOD GAS 2 ARTERIAL (09/21/2016 10:05 AM EST) pH, Arterial 7.33(L) 7.35 - 7.45 [facility] PCO2, Arterial 54(Critic al) 35 - 45 mmHg [facility] Comment:Noted by instrument repairer. PO2, Arterial 218(H) 85 - [...] [facility] Comment: Noted by instrument repairer. Please note: Patients with WBC [...] [facility] [place] [address] * (ABNORMAL) BLOOD GAS 2 ARTERIAL (09/21/2016 9:44 AM EST) pH, Arterial 7.22(Criti gabrielle) 7.35 - 7.45 [facility] Comment:Noted by instrument repairer. PCO2, Arterial 70(Critica l) 35 - 45 mmHg [facility] Comment:Noted by instrument repairer. PO2, Arterial 224(H) 85 - [...] [facility] [place] [address] * (ABNORMAL) Hemoglobin (09/21/2016 9:42 AM EST) Hemoglobin 7.2(L) 11.7 - 15.5 gm/dL [facility] Blood specimen (specimen) 09/21/2016 9:42 AM EST 09/21/2016 9:51 AM EST Narrative Resulting Agency Comment Spec In Lab Alirio Esparza MD HEMATOLOGY ORDERABL ES Performing Organization Address [facility]/ZIP Co de Phone Number [facility] [place] [address] * Platelet count (09/21/2016 9:42 AM EST) Platelet 159 145 - 357 x10(3)/mc L [facility] Immature Plt % 1.6 0.0 - 7.4 % [facility] Comment: Limitation of the Immature Platelet Fraction (IPF)-May be less reliable when the platelet count is less than 53d264/uL due to statistical imprecision. The IPF value [...] in a decreased state of production. References: [employer] The Clinical Value of the Immature Platelet Fraction (IPF) in Cell Recovery Document Number 10-1143 12/2010 [employer] The Role of the Immature Platelet Fraction (IPF) in the Differential Diagnosis of Thrombocytopenia, Document MKT-10-1209 V05/07/15 P0514 Blood specimen (specimen) 09/21/2016 9:42 AM EST 09/21/2016 9:51 AM EST Narrative Resulting Agency Comment Spec In Lab Alirio Esparza MD HEMATOLOGY ORDERABL ES Performing Organization Address [facility] Co de Phone Number [facility] [place] [address] * (ABNORMAL) Hematocrit (09/21/2016 9:42 AM EST) [...] HEMATOLOGY ORDERABL ES Performing Organization Address [facility] de Phone Number [facility] [place] [address] * Fibrinogen (09/21/2016 9:42 AM EST) Fibrinogen [...] MD HEMATOLOGY ORDERABL ES Performing Organization Address [facility] Co de Phone Number [facility] [place] [address] * (ABNORMAL) BLOOD GAS 2 ARTERIAL (09/21/2016 [...] [facility] [place] [address] * Surgical Pathology Report (09/21/2016 9:09 AM EST) Final Diagnosis [id number] ?Location: 3T The signing pathologist has (i) [...] AM EST Alirio Esparza MD PATHOLOGY/[place] [address] * Specimen to Pathology (surgical or derm) (09/21/2016 9:09 AM EST) AP Specimen 09/21/2016 9:09 AM EST 09/21/2016 9:09 AM EST Narrative [facility] - 09/21/2016 9:09 AM EST Specimen requisition ordered. ??Separate Pathology report to follow Alirio Esparza MD PATHOLOGY/CYTOLOGY ORDERABLES [facility] [place] [address] * (ABNORMAL) BLOOD GAS 2 ARTERIAL (09/21/2016 [...] [facility] [place] [address] * (ABNORMAL) BLOOD GAS 2 ARTERIAL (09/21/2016 [...] [facility]ENTER [facility] Temp Art 35.6 Celsius [facility] Blood specimen (specimen) 09/21/2016 8:18 AM EST 09/21/2016 8:18 AM EST Alirio Esparza MD POINT OF CARE TEST ORDERABLES [facility] [place] [address] * Prepare RBC (09/21/2016 7:05 AM EST) Dispensed? Yes [facility] Blood specimen (specimen) 09/21/2016 7:05 AM EST 09/21/2016 7:02 AM EST Alirio Esparza MD BLOOD BANK PRODUCT ORDERABLES Performing Organization Address City/[facility]/ZIP Co de Phone Number [facility] [place] [address] * POCT Glucose (09/21/2016 6:42 AM EST) Glucose, POC 104 65 - 199 mg/dL [facility] Comment: Supplemental ranges: <140 mg/dL before meals <180 mg/dL all other times of the day Blood specimen (specimen) 09/21/2016 6:42 AM EST 09/21/2016 6:42 AM EST Alirio Esparza MD POINT OF [place] [address] documented in this encounter Visit Diagnoses Not [...] dose on Wed09/21/16 at 1230, Until Discontinued, Cushing teeth, Routine Given 09/25/2016 9:40 AM EST [...] dose on Wed09/21/16 at 1230, Until Discontinued, Cushing teeth, Routine 0900 (Not Given - Provider: [...] Routine documented in this encounter Care Teams Therapy Tech Relationship Specialty Start Date End Date Deborah Quiroga APRN PCP - General Family Medicine 03/24/16 02/04/23 documented as of this encounter
--- OUTSIDE RECORDS SUMMARY | 2024-05-11 14:42 | XMS_ITS | Encounter Summary ---
Author Organization [facility] Address [facility] [place] [address] Care Team Providers Care Farm Crew Member Name Role Phone Deborah Quiroga ANURAG Primary Care Provider [phone] Encounter Details Date Type Department Care Team (Late st Contact Info) Description 08/18/2016 Orders [place] [phone] Alirio Esparza MD Aortic valve stenosis, unspecified [...] [facility] On[facility] [address] [place] [address] 05/12/2024 10:00 AM EDT Office Visit Hematology [place] [address] Markel Borjas MD [facility] [address] [place] [address] 03/01/2025 4:15 PM EDT Office Visit Dermatology at [address] [address] Marek Bonilla MD [address], [place] [address] documented as of this encounter Results * [...] the following links into your internet browser. [email or web address] Blood specimen (specimen) 08/18/2016 4:50 PM EST 08/18/2016 5:03 PM EST Narrative Resulting Agency Comment Spec In Lab Alirio Esparza MD CHEMISTRY ORDERABLE S [facility] [place] [address] documented in this encounter Visit Diagnoses Diagnosis Aortic valve stenosis, unspecified etiology Chronic idiopathic neutropenia Other neutropenia documented in this encounter Care Teams Farm Crew Member Relationship Specialty Start Date End Date Deborah Quiroga, ANURAG PCP - General Family Medicine 03/24/16 02/04/23 documented as of this encounter
--- OUTSIDE RECORDS SUMMARY | 2024-05-11 14:42 | XMS_ITS | Encounter Summary ---
Author Organization [facility] Address [facility] [place] [address] Care Team Providers Care District Associate Judge Name Role Phone Junaid Deborah Cornelius ANURAG Primary Care Provider [phone] Encounter Details Date Type Department Care Team (Late st Contact Info) Description 07/13/2016 External Results [place] [phone] Provider, Scanning Social History Tobacco Use Types [...] [facility] On[facility] [address] [place] [address] 05/12/2024 10:00 AM EDT Office Visit Hematology [place] [phone] Markel Borjas MD [facility] [address] HEMATOLOGY [place] [address] 03/01/2025 4:15 PM EDT Office Visit Dermatology at [place] [address] [place] [phone] Marek Bonilla MD [address], [place] [address] documented as of this encounter Procedures Procedure Name Priority Date/Time Associated Diagnosis Comments SURGICAL PATHOLOGY SCAN Routine 07/13/2016 documented in this encounter Results * Scan Doc: Surgical Pathology (07/13/2016) Nitesh Pina Jr., MD MEDIA MGR SCAN EXT O RDR/RSLT documented in this encounter Visit Diagnoses Not on filedocumented in this encounter Care Teams District Associate Judge Relationship Specialty Start Date End Date Deborah Quiroga APRN PCP - General Family Medicine 03/24/16 02/04/23 documented as of this encounter
--- OUTSIDE RECORDS SUMMARY | 2024-05-11 14:42 | XMS_ITS | Encounter Summary ---
[place] [address] Care Team Providers Care Offbearer Sewer Pipe Name Role Phone Deborah Quiroga ANURAG Primary Care Provider [phone] Reason for Visit * Reason Onset Date Comments Medical Care Coordination 07/17/2016 Encounter Details Date Type Department Care Team ([facility] Contact Info) Description 07/17/2016 Telephone Hematology [place] [phone] Alexandrea Greenwood RN Medical Care Coordination Social [...] 07/17/2016 12:07 PM EST Message received from pathology secretary/transcriptionist: Injection/Infusion Referral Call placed to [phone]). Spoke w/ Pasquale. Services to be provided for pt are: Labs @ 10am ([facility]) & [facility] @ 11am on 07/20/16, CBC only on 07/30/16 Pasquale confirmed they would provide services to pt and I left [facility] for pt to call for appt info. Pt demographics, office note, med list and orders faxed to [facility] & [facility] documented in this encounter Plan of Treatment Upcoming Encounters Date Type Department Care Team (Late st Contact Info) Description 05/12/2024 9:00 AM EDT Laboratory Appointment Lab at [facility] Hematology Oncology [address] [place] [address] 05/12/2024 10:00 AM EDT Office Visit Hematology [place] [address] Markel Borjas MD [facility] [address] [place] [address] 03/01/2025 4:15 PM EDT Office Visit Dermatology at [place] [address] [place] [phone] Marek Bonilla MD [address], [place] [address] documented as of this encounter Visit Diagnoses Not on filedocumented in this encounter Care Teams Offbearer Sewer Pipe Relationship Specialty Start Date End Date Deborah Quiroga APRN PCP - General Family Medicine 03/24/16 02/04/23 documented as of this encounter
--- OUTSIDE RECORDS SUMMARY | 2024-05-11 14:42 | XMS_ITS | Encounter Summary ---
Author Organization [facility] [place] [address] Care Team Providers Care Library Media Assistant Name Role Phone Deborah Quiroga APRN Primary Care Provider [phone] Encounter Details Date Type Department Care Team (Late st Contact Info) Description 08/18/2016 4:20 PM EST Clinical [place] [phone] Social History Tobacco Use Types Packs/Day Years [...] [facility] [place] [place]emat[place] Oncology [address] [place] [address] 05/12/2024 10:00 AM EDT Office Visit Hematology [place] [address] Markel Borjas MD [facility] [address] HEMATOLOGY [place] [address] 03/01/2025 4:15 PM EDT Office Visit Dermatology at [place] [address] [place] [address] Marek Bonilla MD [address], [place] [address] documented as of this encounter Visit Diagnoses Not on filedocumented in this encounter Care Teams Library Media Assistant Relationship Specialty Start Date End Date Deborah Quiroga APRN PCP - General Family Medicine 03/24/16 02/04/23 documented as of this encounter
--- OUTSIDE RECORDS SUMMARY | 2024-05-11 14:42 | XMS_ITS | Encounter Summary ---
Author Organization [facility] Address [facility] [place] [address] Care Team Providers Care Store Warehouse Associate Name Role Phone Deborah Quiroga ANURAG Primary Care Provider [phone] Encounter Details Date Type Department Care Team (Late st Contact Info) Description 07/22/2016 External Results Hematology [place] [phone] Alexandrea Greenwood RN Neutropenia, unspecified type Social [...] [facility] Hematology Oncology [address] [place] [address] 05/12/2024 10:00 AM EDT Office Visit [place]ology [place] [address] Markel Borjas MD [facility] [place] [address] 03/01/2025 4:15 PM EDT Office Visit Dermatology at [address] [address] Marek Bonilla MD [address], [place] [address] documented as of this encounter Procedures Procedure Name Priority Date/Time Associated Diagnosis Comments COPPER, SERUM Routine 07/20/2016 10:30 AM EST Neutropenia, unspecified type CMV PCR, QUANTITATIVE Routine 07/20/2016 10:30 AM EST Neutropenia, unspecified type MONONUCLEOSIS SCREEN ([facility]) Routine 07/20/2016 10:30 AM EST Neutropenia, unspecified type CBC (WITH DIFF) Routine 07/20/2016 10:30 AM EST Neutropenia, unspecified type documented in this encounter Results * Copper, serum (07/20/2016 10:30 AM EST) Copper (NOVEMBER) 1.09 0.75 - 1.45 EXTERNAL LAB Blood specimen (specimen) 07/20/2016 10:30 AM EST Markel Borjas MD LAB SEND OUT ORDER JODIE Performing Organization Address City/[facility]/ZIP Co de Phone Number EXTERNAL LAB * CMV PCR, Quantitative (07/20/2016 10:30 AM EST) CMV PCR,Quantitati ve undetected EXTERNAL LAB Blood specimen (specimen) 07/20/2016 10:30 AM EST Markel Borjas MD MOLECULAR ORDERABL ES Performing Organization Address City/[facility]/ZIP Co de Phone Number EXTERNAL [...] neutropenia documented in this encounter Care Teams Store Warehouse Associate Relationship Specialty Start Date End Date Deborah Quiroga, GRADUATION COACH PCP - General Family Medicine 03/24/16 02/04/23 documented as of this encounter
--- OUTSIDE RECORDS SUMMARY | 2024-05-11 14:42 | XMS_ITS | Encounter Summary ---
Author Organization [facility] Address [facility] [place] [address] Care Team Providers Care String Studies Director Name Role Phone Deborah Quiroga ANURAG Primary Care Provider [phone] Encounter Details Date Type Department Care Team (Late st Contact Info) Description 09/17/2016 External Results Hematology [place] [phone] Alexandrea Greenwood RN Neutropenia, unspecified type Social [...] [facility] Hematology Oncology [address] [place] [address] 05/12/2024 10:00 AM EDT Office Visit Hematology [place] [address] Markel Borjas MD [facility] [place] [address] 03/01/2025 4:15 PM EDT Office Visit Dermatology at [address] [address] Marek Bonilla MD [address], [place] [address] documented as of this encounter Procedures Procedure [...] neutropenia documented in this encounter Care Teams String Studies Director Relationship Specialty Start Date End Date Deborah Quiroga APRN PCP - General Family Medicine 03/24/16 02/04/23 documented as of this encounter
--- OUTSIDE RECORDS SUMMARY | 2024-05-11 14:43 | XMS_ITS | Encounter Summary ---
Author Organization [facility] Address [facility] [place] [address] Care Team Providers Care Retail Store Associate Name Role Phone JunaidAshley hargrovezac Shields APRN Primary Care Provider [phone] Reason for Visit * Auth/Cert Specialty Diagnoses / Procedures Referred By Crispin t Referred To Contact Diagnoses AVS Procedures CARDIAC CATHETERIZATION Referral ID Status Reason Start Date Expiration Date Visits Re quested Visits Authorized [id number] 1 1 Encounter Details Date Type Department Care Team (Late st Contact Info) Description 06/03/2016 6:32 AM EDT - 06/03/2016 1:10 PM EDT Hospital Encounter [place] [phone] Anjum Oliveros II, MD [facility] [place] [address] Mario Alberto Escobedo MD [facility] [place] [address] Aortic valve stenosis, unspecified etiology; Nonrheumatic aortic [...] by your doctor, do not take any bjwj-hrp-hsvobgv medicinesor herbal preparations without first discussing this with your doctor or pharmacist. There is the possibility of side effects and interactions when these are combined. Follow Up Care Who to call with questions or problems If there are any questions or problems that you think might be related to your cardiac cath or angioplasty, contact the tallow refiner manager application by calling [facility] at . * Patient Instructions* Felicia Corrigan - 06/03/2016 9:33 AM EDT Cardiology Instructions Call your doctor if: Chest pain, dyspnea, pain or swelling in legs occurs. If you have non-emergent questions between now and the time of your follow up appointments: -During 8am-5pm Wednesday through Wednesday call [phone] to speak with a nurse in the cardiology clinic -All other times call [phone] and ask to speak to the tie cutter manager application. MEDICATIONS - restart your spironolactone, discontinue prior [...] Appointments: Primary care provider: Cardiology: Deborah Hahn, MEDICAL CARE ADMINISTRATOR [phone] Follow up as planned or as needed. Dr. Esparza [phone] Other follow-up appointment: Hematology - Dr. Mario [...] [facility] Hematology Oncology [address] [place] [address] 05/12/2024 10:00 AM EDT Office Visit [place]ology [place] [address] Markel Borjas MD [facility] [address] HEMATOLOGY [place] [address] 03/01/2025 4:15 PM EDT Office Visit Dermatology at [place] [address] [facility] [place] [phone] Marek Bonilla MD [address], [place] [address] documented as of this encounter Procedures Procedure [...] MD CHEMISTRY ORDERABLES [facility] [place] [address] * Methylmalonic acid, serum (06/03/2016 11:45 AM EDT) Methylmalonic Acid (NOVEMBER) 0.21 <=0.40 nmol/mL [facility] Comment: Test Performed by: [address] [address] Soiled Linen Distributor: Raymond Chaudhry II, M.D., Ph.D. Blood specimen (specimen) 06/03/2016 11:45 AM EDT 06/03/2016 1:57 PM EDT Narrative Resulting Agency Comment Spec In Lab Mario Alberto Escobedo MD LAB SEND OUT ORDERAB LES Performing Organization Address [facility] Co de Phone Number [facility] [place] [address] * Granulocyte Antibody (06/03/2016 11:45 AM EDT) Granulocyte Ab (NOVEMBER) Negative Not Applicable [facility] Comment: ADDITIONAL INFORMATION Method: Immunofluorescent Assay Performing Laboratory CLIA# [id number] This test was developed and its performance characteristics determined by [facility] in a manner consistent with CLIA requirements. This test has not been cleared or approved by the U.S. Food and Drug Administration. Test Performed by: [place] [address] Soiled Linen Distributor: Raymond Chaudhry II, M.D., Ph.D. Blood specimen (specimen) 06/03/2016 11:45 AM EDT 06/03/2016 1:57 PM EDT Narrative Resulting Agency Comment Spec In Lab Mario Alberto Escobedo MD LAB SEND OUT ORDERAB LES Performing Organization Address [facility] Co de Phone Number [facility] [place] [address] * TSH (06/03/2016 11:45 AM EDT) Thyroid Stimulating Hormone 2.18 0.27 - 4.20 mcIU/mL [facility] Blood specimen (specimen) 06/03/2016 11:45 AM EDT 06/03/2016 12:11 PM EDT Narrative Resulting Agency Comment Spec In Lab Mario Alberto Escobedo MD CHEMISTRY ORDERABLES Performing Organization Address [facility]/ZIP Co de Phone Number [facility] [place] [address] * Homocysteine Total, Plasma (06/03/2016 11:45 AM EDT) Homocystine 9 <=15 mcmol/L [facility] Blood specimen (specimen) 06/03/2016 11:45 AM EDT 06/03/2016 12:11 PM EDT Narrative Resulting Agency Comment Spec In Lab Mario Alberto Escobedo MD CHEMISTRY ORDERABLES Performing Organization Address City/[facility]/ZIP Co de Phone Number [facility] [place] [address] * Folate, serum (06/03/2016 11:45 AM EDT) Folate >20.0 4.8 - 24.2 ng/mL [facility] Blood specimen (specimen) 06/03/2016 11:45 AM EDT 06/03/2016 12:04 PM EDT Narrative Resulting Agency Comment Spec In Lab Mario Alberto Escobedo MD CHEMISTRY ORDERABLES Performing Organization Address City/[facility]/ZIP Co de Phone Number [facility] [place] [address] * (ABNORMAL) Sedimentation rate (06/03/2016 11:45 AM EDT) Sedimentation Rate Automated 41(H) 0 - 20 mm/hr [facility] Blood specimen (specimen) 06/03/2016 11:45 AM EDT 06/03/2016 12:04 PM EDT Narrative Resulting Agency Comment Spec In Lab Mario Alberto Escobedo MD HEMATOLOGY ORDERABLE S Performing Organization Address City/[facility]/ZIP Co de Phone Number [facility] [place] [address] * Lactate Dehydrogenase (06/03/2016 11:45 AM EDT) Lactate Dehydrogenase 164 110 - 220 unit/L [facility] Blood specimen (specimen) 06/03/2016 11:45 AM EDT 06/03/2016 12:11 PM EDT Narrative Resulting Agency Comment Spec In Lab Mario Alberto Escobedo MD CHEMISTRY ORDERABLES [facility] [place] [address] * Comprehensive metabolic panel (non-fasting) (06/03/2016 11:45 AM EDT) Glucose 90 65 - 199 mg/dL [facility] Comment:Diabetes: >=200 mg/d L plus symptoms Blood Urea Nitrogen 11 8 - 18 mg/dL [facility] Creatinine 0.83 0.70 - 1.20 mg/dL [facility] Comment: Please note that the pediatric reference intervals supplied above were not validated at [facility]. Results from pediatric [...] the following links into your internet browser. [email or web address] Blood specimen (specimen) 06/03/2016 11:45 AM EDT 06/03/2016 12:11 PM EDT Narrative Resulting Agency Comment Spec In Lab Mario Alberto Escobedo MD CHEMISTRY ORDERABLES [facility] [place] [phone] documented in this encounter Visit Diagnoses Diagnosis [...] Hernandez) documented in this encounter Care Teams Retail Store Associate Relationship Specialty Start Date End Date Deborah Quiroga, MEDICAL CARE ADMINISTRATOR PCP - General Family Medicine 03/24/16 02/04/23 documented as of this encounter
--- OUTSIDE RECORDS SUMMARY | 2024-05-11 14:43 | XMS_ITS | Encounter Summary ---
Author Organization [facility] Address [facility] [place] [address] Care Team Providers Care Property Controller Name Role Phone Junaid Deborah Shields APRN Primary Care Provider [phone] Encounter Details Date Type Department Care Team (Latest Contact Info) Description 06/19/2016 - 06/19/2016 11:59 PM EST Hospital Encounter Radiology Library at [facility] [place] [place] [phone] Nitesh Pina Jr., MD [facility] HEMATOLOGY [place] [address] Pain Discharge Disposition: Home Social History Tobacco [...] [facility] [place]emat[facility] Oncology [address] [place] [address] 05/12/2024 10:00 AM EDT Office Visit Hematology [place] [address] Markel Borjas MD [facility] DR HEMATOLOGY [place] [address] 03/01/2025 4:15 PM EDT Office Visit Dermatology at [place] [address] [place] [phone] Marek Bonilla MD [address] [facility], [place] [address] documented as of this encounter Procedures Procedure Name Priority Date/Time Associated Diagnosis Comments FILM LIBRARY STORAGE ONLY CT CHEST ABDOMEN PELVIS Routine 06/19/2016 12:00 AM EST Pain documented in this encounter Results * Film Library- Storage Only CT Chest Abdomen Pelvis (06/19/2016 12:00 AM EST) Narrative [facility] - 06/20/2016 8:53 AM EST This exam is for storage only and is auto-finalizing. Nitesh Pina Jr., MD IMG FILM LIBRARY ORD ERABLES [place] documented in this encounter Visit Diagnoses Diagnosis Pain Generalized pain Chronic idiopathic neutropenia Other neutropenia documented in this encounter Care Teams Property Controller Relationship Specialty Start Date End Date Deborah Quiroga APRN PCP - General Family Medicine 03/24/16 02/04/23 documented as of this encounter
--- OUTSIDE RECORDS SUMMARY | 2024-05-11 14:43 | XMS_ITS | Encounter Summary ---
Author Organization [facility] Address [facility] [place] [address] Care Team Providers Care Hotel Casino Floorperson Name Role Phone Deborah Quiroga ANRUAG Primary Care Provider [phone] Encounter Details Date Type Department Care Team (Late st Contact Info) Description 06/16/2016 Orders Only Hematology [place] [phone] Nitesh Pina Jr., MD [facility] DR HEMATOLOGY [place] [address] Cyclical neutropenia Social History Tobacco Use Types [...] [facility] [place] On[place] [address] [place] [address] 05/12/2024 10:00 AM EDT Office Visit [place]ematology [place] [address] Markel Borjas MD [facility] [address] HEMATOLOGY [place] [address] 03/01/2025 4:15 PM EDT Office Visit Dermatology at [place] [address] [facility] [place] [address] Marek Bonilla MD [address], [place] [address] documented as of this encounter Visit Diagnoses Diagnosis 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
--- OUTSIDE RECORDS SUMMARY | 2024-05-11 14:43 | XMS_ITS | Encounter Summary ---
Author Organization [facility] [place] [address] Care Team Providers Care Cloth Mercerizing Supervisor Name Role Phone Mitchell Wilkes MD Primary Care Provider [phone] Encounter Details Date Type Department Care Team (Late st Contact Info) Description 01/19/2014 Orders Only Cardiology at [address] [phone] Chele Randolph PA [facility] [place] [address] Cardiomyopathy (Primary Dx) Social History Tobacco Use [...] [facility] Hematology Oncology [address] [place] [address] 05/12/2024 10:00 AM EDT Office Visit Hematology [place] [address] Markel Borjas MD [facility] [address] HEMATOLOGY [place] [address] 03/01/2025 4:15 PM EDT Office Visit Dermatology at [place] [address] [place] [address] Marek Bonilla MD [address], [place] [address] documented as of this encounter Procedures Procedure [...] documented in this encounter Care Teams Cloth Mercerizing Supervisor Relationship Specialty Start Date End Date Mitchell Wilkes MD [facility] PCP - General 06/24/10 01/19/14 documented as of this encounter
--- OUTSIDE RECORDS SUMMARY | 2024-05-11 14:43 | XMS_ITS | Encounter Summary ---
Author Organization [facility] Address [facility] [place] [address] Care Team Providers Care Ladle Patcher Name Role Phone Ashley Quirogan Cornelius ANURAG Primary Care Provider [phone] Encounter Details Date Type Department Care Team (Latest Contact Info) Description 05/19/2016 11:20 AM EDT Laboratory [place] [phone] Nonrheumatic aortic valve stenosis Social History Tobacco [...] [facility] Hematology Oncology [address] [place] [address] 05/12/2024 10:00 AM EDT Office Visit Hematology [place] [address] Markel Borjas MD [facility] [place] [address] 03/01/2025 4:15 PM EDT Office Visit Dermatology at [address] [address] Marek Bonilla MD [address], [place] [address] documented as of this encounter Procedures Procedure [...] (05/19/2016 11:32 AM EDT) Plat estimate Normal [facility] RBC Morphology Normal [facility] Blood specimen (specimen) 05/19/2016 11:32 AM EDT 05/19/2016 11:41 AM EDT Narrative Resulting Agency Comment Spec In Lab Alirio Esparza MD HEMATOLOGY ORDERABL ES [facility] [place] [address] * (ABNORMAL) Differential, Automated (05/19/2016 11:32 AM EDT) Pathologist Iron Neutrophil % 25.9 % [facility] Neutrophil Absolute 0.42(Crit ical) 1.70 - 6.10 x10(3)/[facility] Comment: This result has been called to DR ALIRIO ESPARZA by Alivia Ibarra on 05 19 2016 at 1228, and has been read back. Lymph % 59.9 % [facility] Lymphocytes Abs 1.0 0.9 - 3.2 x10(3)/[facility] Monocyte % 13.0 % [facility] Monocyte Abs 0.2(L) 0.3 - 0.9 x10(3)/[facility] Eos % 0.6 % [facility] Eosinophils Abs 0.0 0.0 - 0.4 x10(3)/[facility] Basophil % 0.6 % [facility] Baso Absolute 0.0 0.0 - 0.1 x10(3)/[facility] Immature Gran % 0.00 % [facility] Comment: Immature granulocytes(IG's)percentage and absolute count will include metamyelocytes, myelocytes, and promyelocytes. Blood smears from CBCs yielding IG's will be scanned manually for concordance. If this scan disagrees with the automated IG or if promyelocytes are noted, a manual differential will be performed. Immature Gran Absolute 0.00 0.00 - 0.04 x10(3)/[facility] Blood specimen (specimen) 05/19/2016 11:32 AM EDT 05/19/2016 11:41 AM EDT Narrative Resulting Agency Comment Spec In Lab Alirio Esparza MD HEMATOLOGY ORDERABL ES [facility] [place] [address] * (ABNORMAL) Hemogram (05/19/2016 11:32 AM EDT) [facility] NRBC% auto 0.0 % [facility] NRBC Absolute 0.000 0.000 - 0.000 x10(3)/ L [facility] Blood specimen (specimen) 05/19/2016 11:32 AM EDT 05/19/2016 11:41 AM EDT Narrative Resulting Agency Comment Spec In Lab Alirio Esparza MD HEMATOLOGY ORDERABL ES [facility] [place] [address] * Antibody screen (05/19/2016 11:32 AM EDT) Ab Screen Interp Negative [facility] Expires at [id number] on: 07/03/2016 [facility] Comment: Corrected from 06/11/16 12:00 [Unknown] on 06/09/16 05:51 by Bethanie Tomlinson I.. Corrected from 07/03/16 12:00 [Unknown] on 05/21/16 06:00 by Shelia Barrera Blood specimen (specimen) 05/19/2016 11:32 AM EDT 05/19/2016 11:35 AM EDT Narrative Resulting Agency Comment Spec In Lab Alirio Esparza MD BLOOD BANK LAB ORDCornelius ALEJO [facility] [place] [address] * ABO/Rh Typing (05/19/2016 11:32 AM EDT) Pathologist [facility] ABORH Type B Pos [facility] Blood specimen (specimen) 05/19/2016 11:32 AM EDT 05/19/2016 11:35 AM EDT Narrative Resulting Agency Comment Spec In Lab Alirio Esparza MD BLOOD BANK LAB BETH ALEJO [facility] [place] [address] * Basic Metabolic Panel (non-fasting) (05/19/2016 11:32 AM EDT) [facility] Glucose 86 65 - 199 mg/dL [...] the following links into your internet browser. [email or web address] Blood specimen (specimen) 05/19/2016 11:32 AM EDT 05/19/2016 11:41 AM EDT Narrative Resulting Agency Comment Spec In Lab Alirio Esparza MD CHEMISTRY ORDERABLE S [facility] [place] [address] documented in this encounter Visit Diagnoses Diagnosis Nonrheumatic aortic valve stenosis Aortic valve disorders Chronic idiopathic neutropenia Other neutropenia documented in this encounter Care Teams Ladle Patcher Relationship Specialty Start Date End Date Deborah Quiroga APRN PCP - General Family Medicine 03/24/16 02/04/23 documented as of this encounter
--- OUTSIDE RECORDS SUMMARY | 2024-05-11 14:43 | XMS_ITS | Encounter Summary ---
Author Organization [facility] [place] [address] Care Team Providers Care Box Press Operator Name Role Phone Eitan Danni ANURAG Primary Care Provider Encounter Details Date Type Department Care Team (Late st Contact Info) Description 01/23/2014 9:25 AM EDT - 01/23/2014 10:25 AM EDT Surgery [place] [address] Alan Jacobson MD [facility] [place] [address] CARDIAC CATHETERIZATION Social History Tobacco Use Types [...] by your doctor, do not take any zpok-udj-uusqwuy medicines or herbal preparations without first discussing this with your doctor or pharmacist. There is the possibility of side effect and interactions when these are combined. Follow up Care Who to Call with Questions or Problems If there are any questions or problems that you think might be related to your cardiac cath or angioplasty, contact the erp engineer cotton roll packer by calling [facility] at . documented in this [...] [facility] Hematology Oncology [address] [place] [address] 05/12/2024 10:00 AM EDT Office Visit Hematology [place] [address] Markel Borjas MD [facility] [address] [place] [address] 03/01/2025 4:15 PM EDT Office Visit Dermatology at [place] [address] [address] Marek Bonilla MD [address], [place] [address] documented as of this encounter Procedures Procedure Name Priority Date/Time Associated Diagnosis Comments ECHOCARDIOGRAM TRANSTHORACIC Routine 01/23/2014 3:17 PM EDT SOB (shortness of breath) documented in this encounter Results * Echocardiogram Transthoracic(Leb) (01/23/2014 3:17 PM EDT) [facility] EF 50 [email or web address] SYSTEM Anatomical Region Laterality Modality Other 01/23/2014 Narrative 01/23/2014 4:35 PM EDT Procedure: ? Transthoracic Echocardiogram Patient: ? ANDREW ONESIMO M ?(Age): 1955(58) Med Rec#: ?[id number] ? Sex: ?F ? Site Loc: ?[facility] ? Ht / Wt: ??158(cm)/93(kg) Pt. Loc: ? Adult Floor ?BSA: ?2.02 Study Date: ?01/23/2014 ? Pt. Type: Inpatient Tape: ? Referring: Lee Kincaid ([id number]) Referring: ANNALISA Certified Peer Specialist: Miguel Beverly Diagnosis:CPT Code(s): ??Echo Full (63786), ??Spectral Doppler (24726), Color Doppler (31818), Indication(s): ??Aortic stenosis Rhythm: Sinus HR ?BP [...] Mid-Inferior ?Hypokinetic ? Mid-Inferoseptal ?Hypokinetic ? [place]-Septal ? Hypokinetic ? [place]-Anterior ? Hypokinetic ? [place]-Lateral ?Hypokinetic ? [place]-Inferior ? Hypokinetic ? [place]-Tip ?Hypokinetic ? [place] ?Value ?Units (Range) ? [...] 16:34:37 Images reviewed and interpretation verified [facility] Cardiac Ultrasound Laboratory Procedure Note Lee Kincaid MD - 01/23/2014 Procedure: Transthoracic Echocardiogram Patient: ANDREW Mejias (Age): 1955(58) Med Rec#: [id number] Sex: F Site Loc: [facility] Ht / Wt: 158(cm)/93(kg) Pt. Loc: Adult Floor BSA: 2.02 Study Date: 01/23/2014 Pt. Type: Inpatient Tape: Referring: Lee Kincaid ([id number]) Referring: ANNALISA Certified Peer Specialist: Miguel Beverly Diagnosis:CPT Code(s): Echo Full (37680), Spectral Doppler (62709), Color Doppler (41567), Indication(s): Aortic stenosis Rhythm: Sinus HR BP [...] Mid-Posterolateral Hypokinetic Mid-Inferior Hypokinetic Mid-Inferoseptal Hypokinetic [place]-Septal Hypokinetic [place]-Anterior Hypokinetic [place]-Lateral Hypokinetic [place]-Inferior Hypokinetic [place]-Tip Hypokinetic Chambers Value Units (Range) IVSd 2D [...] 16:34:37 Images reviewed and interpretation verified [facility] Cardiac Ultrasound Laboratory Lee Kincaid [...] 1310 (New Bag - Prov ider: Seble sEpinoza RN) PRN Medication Order 01/21/2014 01/22/2014 01/23/2014 [...] RN) documented in this encounter Care Teams Box Press Operator Relationship Specialty Start Date End Date Danni Laird APRN [address] [place] [address] PCP - General 01/23/14 11/11/14 documented as of this encounter
--- OUTSIDE RECORDS SUMMARY | 2024-05-11 14:43 | XMS_ITS | Encounter Summary ---
[place] [address] Care Team Providers Care Product Lead Name Role Phone Mitchell Wilkes MD Primary Care Provider [phone] Reason for Visit * Reason Onset Date Comments Other 01/18/2014 Encounter Details Date Type Department Care Team (Late st Contact Info) Description 01/18/2014 Telephone Cardiology at [address] [phone] Jesusita Garces Other Social History Tobacco Use [...] [facility] Hematology Oncology [address] [place] [address] 05/12/2024 10:00 AM EDT Office Visit [place] [address] Markel Borjas MD [facility] [address] [place] [address] 03/01/2025 4:15 PM EDT Office Visit Dermatology at [place] [address] [facility] [address] [place] [address] Marek Bonilla MD [address], [place] [place] [address] documented as of this encounter Visit Diagnoses Not on filedocumented in this encounter Care Teams Product Lead Relationship Specialty Start Date End Date Mitchell Wilkes MD [facility] PCP - General 06/24/10 01/19/14 documented as of this encounter
--- OUTSIDE RECORDS SUMMARY | 2024-05-11 14:43 | XMS_ITS | Encounter Summary ---
Author Organization [facility] [address] Care Team Providers Care Economic Analysis Director Name Role Phone Deborah Quiroga APRN Primary Care Provider Encounter Details Date Type Department Care Team (Latest Contact Info) Description 07/10/2016 2:54 PM EST - 07/10/2016 11:59 PM EST [place] [phone] Discharge Disposition: Home Social History Tobacco Use [...] [facility] Hematology Oncology [address] [place] [address] 05/12/2024 10:00 AM EDT Office Visit Hematology [place] [address] Markel Borjas MD [facility] [address] [place] [address] 03/01/2025 4:15 PM EDT Office Visit Dermatology at [place] [address] [facility] [address] Marek Bonilla MD [address] [facility], [place] [address] documented as of this encounter Procedures Procedure Name Priority Date/Time Associated Diagnosis Comments BONE MARROW FINAL REPORT Routine 07/10/2016 3:43 PM EST documented in this encounter Results * Bone Marrow Final Report (07/10/2016 3:43 PM EST) Final Diagnosis [id number] ?Location: OPW The signing pathologist has (i) examined the relevant preparation(s) for the specimen(s) and (ii) rendered or confirmed the diagnosis(es). . ? Bone Marrow Final DIAGNOSIS BONE MARROW (PERIPHERAL SMEAR, ASPIRATE SMEAR, TOUCH PREP, CLOT SECTION, CORE BIOPSY); [OSR# [id number], COLLECTED 06/23/2016, 19 SLIDES]: ?? 1. ??Normocellular [...] clonal lymphoproliferative or myeloproliferative ? disorder (OSR# [id number]) ?Chromosome analysis on the marrow aspirate revealed a normal female karyotype; ?46,XX[25] ??(OSR# [id number]) Electronically signed by: ??Elian Guillen MD Verified: [...] 3/uL Band/Seg 0.52 x103/uL; Lymph 0.75 x103/uL; [place] 0.15 x103/uL; Eos 0.01%; Baso 0.01 x10 [...] plasma cells represent 3-4% of the cellularity [place] ? Polytypic plasma cell staining, high background Lambda ?Polytypic plasma cell staining, high background Block: ? B2 (Core biopsy 2) Fixative: ?? Formalin ANTIBODY: ?? RESULT/COMMENT CD3 ? Scattered small lymphocytes and lymphoid aggregates highlighted CD20 ?Few scattered small lymphocytes stain ( ?? <CD3 in aggregates) CD138 ? Scattered plasma cells represent 3-4% of the cellularity [place] ? Polytypic plasma cell staining, high background Lambda ?Polytypic plasma cell staining, high background Note: The immunoperoxidase stains reported above were developed and their performance characteristics determined by [facility] Clinical Laboratories. ??They have not been cleared [...] CONSULTATION CASE A - 19 slides labeled [id number], collection date 06/23/2016. [id number] Report to: [facility] Surgical Pathology Department [facility], [facility], 2nd Floor [address] [place] [address] ??[id number] 07/13/2016 11:38 AM EST [facility] Consult Case 07/10/2016 3:43 PM EST 07/10/2016 3:43 PM EST Nitesh Pina Jr., MD PATHOLOGY/CYTOLOGY O RDERABLES [facility] [place] [address] documented in this encounter Visit Diagnoses Not on filedocumented in this encounter Care Teams Economic Analysis Director Relationship Specialty Start Date End Date Deborah Quiroga, HIGH RISK OB PCP - General Family Medicine 03/24/16 02/04/23 documented as of this encounter
--- OUTSIDE RECORDS SUMMARY | 2024-05-11 14:43 | XMS_ITS | Encounter Summary ---
[facility] [place] [address] Care Team Providers Care Control Clerk Food And Beverage Name Role Phone Junaid, Deborah Shields APRN Primary Care Provider [phone] Encounter Details Date Type Department Care Team (Late st Contact Info) Description 05/19/2016 10:00 AM EDT Office [place] [phone] Alirio Esparza MD Nonrheumatic aortic valve stenosis [...] [facility] Hematology Oncology [address] [place] [address] 05/12/2024 10:00 AM EDT Office Visit [place] [address] Markel Borjas MD [facility] [address] [place] [address] 03/01/2025 4:15 PM EDT Office Visit Dermatology at [place] [address] [facility] [place] [phone] Marek Bonilla MD [address] [facility], [place] [address] documented as of this encounter Results * [...] (Bezet) 448 ms MUSE SYSTEM Calculated P Paic[place] 37 degrees MUSE SYSTEM Calculated R Paic[place] 31 degrees MUSE SYSTEM Calculated T [place]ic[place] 25 degrees MUSE SYSTEM INTERPRETATION Normal sinus rhythm Normal ECG No previous ECGs available Confirmed by MD Becca, Deangelo ([id number]) on 05/19/2016 5:23:33 PM MUSE SYSTEM 05/19/2016 11:4 3 AM EDT 05/19/2016 5:23 PM EDT Alirio Esparza MD ECG ORDERABLES MUSE SYSTEM * Basic Metabolic Panel (non-fasting) (05/19/2016 11:32 AM EDT) Glucose 86 65 - 199 mg/dL [facility] Comment:Diabetes: >=200 mg/d L plus symptoms Blood Urea Nitrogen 13 8 - 18 mg/dL [facility] Creatinine 0.95 0.70 - 1.20 mg/dL [facility] Comment: Please note that the pediatric reference intervals supplied above were not validated at [facility]. Results from pediatric patients should be interpreted in conjunction to the patient's age, height and muscle mass. Sodium 140 135 - 145 mmol/L [facility] Potassium 4.3 3.5 - 5.0 mmol/L [facility] Comment: Please note: ??Patients with WBC >100,000 may have falsely elevated Potassium levels. ??For accurate Potassium quantification in these patients send serum separator tube (gold top) for subsequent determinations. ??Contact the Clinical Chemistry Laboratory if there are any questions. Chloride 101 98 - 107 mmol/L [facility] Carbon Dioxide 27 22 - 31 mmol/L [facility] Anion Gap 12 5 - 15 mmol/L [facility] [...] the following links into your internet browser. [email or web address]/DHnkdep [email or web address]/DHMCnkf Blood specimen (specimen) 05/19/2016 11:32 AM EDT 05/19/2016 11:41 AM EDT Narrative Resulting Agency Comment Spec In Lab Alirio Esparza MD CHEMISTRY ORDERABLE S [facility] [place] [address] documented in this encounter Visit Diagnoses Diagnosis Nonrheumatic aortic valve stenosis Aortic valve disorders Nonrheumatic aortic valve stenosis Aortic valve disorders Chronic idiopathic neutropenia Other neutropenia documented in this encounter Care Teams Control Clerk Food And Beverage Relationship Specialty Start Date End Date Deborah Quiroga APRN PCP - General Family Medicine 03/24/16 02/04/23 documented as of this encounter
--- OUTSIDE RECORDS SUMMARY | 2024-05-11 14:43 | XMS_ITS | Encounter Summary ---
Author Organization [facility] Address [facility] [place] [address] Care Team Providers Care Money Market Clerk Name Role Phone Deborah Quiroga APRN Primary Care Provider [phone] Encounter Details Date Type Department Care Team (Latest Contact Info) Description 05/19/2016 11:52 AM EDT - 05/19/2016 11:59 PM EDT Hospital Encounter XRay at [address] [place] [address] Alirio Esparza MD Nonrheumatic aortic valve stenosis [...] [facility] Hematology Oncology [address] [place] [address] 05/12/2024 10:00 AM EDT Office Visit [place]ematology [place] [address] Markel Borjas MD [facility] [address] [place] [address] 03/01/2025 4:15 PM EDT Office Visit Dermatology at [place] [address] [facility] [place] [address] Marek Bonilla MD [address] [facility], [place] [address] documented as of this encounter Procedures Procedure [...] neutropenia documented in this encounter Care Teams Money Market Clerk Relationship Specialty Start Date End Date Deborah Quiroga, REGIONAL CONTROLLER PCP - General Family Medicine 03/24/16 02/04/23 documented as of this encounter
--- OUTSIDE RECORDS SUMMARY | 2024-05-11 14:43 | XMS_ITS | Encounter Summary ---
[place] [address] Care Team Providers Care Grinder Set Up Operator Surface Name Role Phone Jerel Sofia Garcia APRN Primary Care Provider [phone] Encounter Details Date Type Department Care Team (Late st Contact Info) Description 11/12/2014 8:10 AM EDT - 11/12/2014 11:59 PM EDT Hospital [place] [phone] CLINIC, DR ABE Burrell, Antelmo Porter MD [address] [place] [address] Discharge Disposition: Home Social History Tobacco Use [...] Lab at [facility] Hematology Oncology [address] [place] [address] 05/12/2024 10:00 AM EDT Office Visit Hematology [place] [address] Markel Borjas MD [facility] [address] [place] [address] 03/01/2025 4:15 PM EDT Office Visit Dermatology at [place] [address] [facility] [place] [address] Marek Bonilla MD [address] [facility] [address], [place] [address] documented as of this encounter Procedures Procedure [...] mLs documented in this encounter Care Teams Grinder Set Up Operator Surface Relationship Specialty Start Date End Date Sofia Beltrán APRN [address] [place] [address] PCP - General 11/12/14 03/23/16 documented as of this encounter
--- OUTSIDE RECORDS SUMMARY | 2024-05-11 14:43 | XMS_ITS | Encounter Summary ---
Author Organization [facility] [place] [address] Care Team Providers Care Supervisor Broadloom Name Role Phone Danni Laird SOCIAL WORK PROGRAM COORDINATOR Primary Care Provider [phone] Encounter Details Date Type Department Care Team (Late st Contact Info) Description 01/23/2014 Orders Only Cardiology at [address] [phone] Lee Kincaid MD [facility] [place] [address] SOB (shortness of breath) (Primary Dx) Social [...] [facility] On[facility] [address] [place] [phone] 05/12/2024 10:00 AM EDT Office Visit [place] [address] Markel Borjas MD [facility] DR HEMATOLOGY [place] [address] 03/01/2025 4:15 PM EDT Office Visit Dermatology at [place] [address] [facility] [place] [place] [address] Marek Bonilla MD [address] [address], [place] [address] documented as of this encounter Results * Echocardiogram Transthoracic(Leb) (01/23/2014 3:17 PM EDT) EF 50 HEARTLAB SYSTEM Anatomical Region Laterality Modality Other 01/23/2014 Narrative 01/23/2014 4:35 PM EDT Procedure: ? Transthoracic Echocardiogram Patient: ? KIRSTIE ECHOLS M ?(Age): 1955(58) Med Rec#: ?[id number] ? Sex: ?F ? Site Loc: [facility] ? Ht / Wt: ??158(cm)/93(kg) Pt. Loc: ? Adult Floor ?BSA: ?2.02 Study Date: ?01/23/2014 ? Pt. Type: Inpatient Tape: ? Referring: Lee Kincaid ([id number]) Referring: ANNALISA Employee Welfare Manager: Miguel Beverly Diagnosis:CPT Code(s): ??Echo Full (82984), ??Spectral Doppler (09843), Color Doppler (77955), Indication(s): ??Aortic stenosis Rhythm: Sinus HR ?BP [...] Mid-Inferior ?Hypokinetic ? Mid-Inferoseptal ?Hypokinetic ? [place]-Septal ? Hypokinetic ? [place]-Anterior ? Hypokinetic ? [place]-Lateral ?Hypokinetic ? [place]-Inferior ? Hypokinetic ? [place]-Tip ?Hypokinetic ? Chambers ?Value ?Units (Range) ? [...] 01/23/2014 16:34:37 Images reviewed and interpretation verified [facility] Cardiac Ultrasound Laboratory Procedure Note Lee Kincaid MD - 01/23/2014 Procedure: Transthoracic Echocardiogram Patient: KIRSTIE Mejias (Age): 1955(58) Med Rec#: [id number] Sex: F Site Loc: [facility] Ht / Wt: 158(cm)/93(kg) Pt. Loc: Adult Floor BSA: 2.02 Study Date: 01/23/2014 Pt. Type: Inpatient Tape: Referring: Lee Kincaid ([id number]) Referring: ANNALISA Employee Welfare Manager: Miguel Beverly Diagnosis:CPT Code(s): Echo Full (29420), Spectral Doppler (68806), Color Doppler (13587), Indication(s): Aortic stenosis Rhythm: Sinus HR BP [...] Mid-Posterolateral Hypokinetic Mid-Inferior Hypokinetic Mid-Inferoseptal Hypokinetic [place]-Septal Hypokinetic [place]-Anterior Hypokinetic [place]-Lateral Hypokinetic [place]-Inferior Hypokinetic [place]-Tip Hypokinetic Chambers Value Units (Range) IVSd 2D [...] 01/23/2014 16:34:37 Images reviewed and interpretation verified [facility] Cardiac Ultrasound Laboratory Lee Kincaid MD ECHO ORDERABLES documented in this encounter Visit Diagnoses Diagnosis SOB (shortness of breath)- Primary Shortness of breath Chronic idiopathic neutropenia Other neutropenia documented in this encounter Care Teams Supervisor Broadloom Relationship Specialty Start Date End Date Danni Laird APRN [address] [place] [address] PCP - General 01/23/14 11/11/14 documented as of this encounter
--- OUTSIDE RECORDS SUMMARY | 2024-05-11 14:43 | XMS_ITS | Encounter Summary ---
Author Organization [facility] Address [facility] [place] [address] Care Team Providers Care Assessment Nurse Name Role Phone JunaidAshley hargrovezac Shields APRN Primary Care Provider [phone] Reason for Visit * Consultation (Urgent) - Closed Specialty Diagnoses / Procedures Referred By Contac t Referred To Contact Cardiac Surgery Diagnoses aortic stenosis, consideration for valve replacement Antelmo Burrell MD [address] [place] [address] Alirio Esparza MD [facility] DR [place] [address] Referral ID Status Reason Start Date Expiration Date V isits Requested Visits Authorized [id number] Closed Connection Center 03/04/2016 03/04/2017 1 1 Encounter Details Date Type Department Care Team (Late st Contact Info) Description 03/24/2016 10:40 AM EDT Office [place] [phone] Alirio Esparza MD Aortic valve stenosis, unspecified [...] This is a patient of Antelmo Burrell [facility] Cardiology. Mrs. Thacker is being sent [...] 30 minute visit, 20 minutes were spent [id number] with the patient discussing aortic stenosis and valve replacement. documented in this encounter Plan of Treatment Upcoming Encounters Date Type Department Care Team (Late st Contact Info) Description 05/12/2024 9:00 AM EDT Laboratory Appointment Lab at [facility] Hematology Oncology [address] [place] [address] 05/12/2024 10:00 AM EDT Office Visit [place] [address] Markel Borjas MD [facility] [address] HEMATOLOGY [place] [address] 03/01/2025 4:15 PM EDT Office Visit Dermatology at [place] [address] [facility] [place] [phone] Marek Bonilla MD [address] [facility] [address], [place] [address] documented as of this encounter Visit Diagnoses Diagnosis Aortic valve stenosis, unspecified etiology Chronic idiopathic neutropenia Other neutropenia documented in this encounter Care Teams Assessment Nurse Relationship Specialty Start Date End Date Deborah Quiroga APRN PCP - General Family Medicine 03/24/16 02/04/23 documented as of this encounter
--- OUTSIDE RECORDS SUMMARY | 2024-05-11 14:43 | XMS_ITS | Encounter Summary ---
Author Organization [facility] [place] [address] Care Team Providers Care Linseed Oil Press Tender Name Role Phone Deborah Quiroga ANURAG Primary Care Provider [phone] Encounter Details Date Type Department Care Team (Late st Contact Info) Description 05/22/2016 Orders Only Cardiology at [address] [phone] Chele Randolph PA [facility] [place] [address] Aortic valve stenosis, unspecified etiology Social History [...] [facility] Hematology Oncology [address] [place] [phone] 05/12/2024 10:00 AM EDT Office Visit Hematology [place] [phone] Markel Borjas MD [facility] DR HEMATOLOGY [place] [address] 03/01/2025 4:15 PM EDT Office Visit Dermatology at [place] [address] [facility] [place] [phone] Marek Bonilla MD [address] [facility] [address] [address], [place] [address] documented as of this encounter Procedures Procedure Name Priority Date/Time Associated Diagnosis Comments CARDIAC CATHETERIZATION Routine 06/03/20 16 9:13 AM EDT Aortic valve stenosis, unspecified etiology documented in this encounter Results * CARDIAC CATHETERIZATION (06/03/2016 9:13 AM EDT) Anatomical Region Laterality Modality Other Narrative 06/03/2016 10:13 AM EDT ?[facility] ? Cardiac Catheterization/Intervention Report ? Patient Name: Purnima Thacker. ? Procedure Date: 06/03/2016 ? A #: [id number] ? Primary Physician: Nitesh Escobedo ? Case #: [id number] ? File Name: [id number] ? Catheterization Order Number: [id number] ? [facility] ? Final Report [place], [place] ? Patient Name: ? Purnima M. Kirstie ? ID#: ?[id number] ? : ?1955 ? Procedure Date: ? [...] no symptom, no angina (w/i 14 days). [place] ?Cardiovascular Society angina class was 0. This [...] ? Procedure Nitesh Marroquin, MD - 09/21/2016 [facility] Cardiac Catheterization/Intervention Report Patient Name: Purnima Thacker Procedure Date: 06/03/2016 A #: [id number] Primary Physician: Nitesh Escobedo Case #: [id number] File Name: [id number] Catheterization Order Number: [id number] [facility] FinalReport [place], [place] Patient Name: Purnima Thacker ID#:[id number] :1955 Procedure Date: June 03, 2016 Case [...] with: no symptom, no angina (w/i 14 days).[place] [employer] angina class was 0. This [...] neutropenia documented in this encounter Care Teams Linseed Oil Press Tender Relationship Specialty Start Date End Date Deborah Quiroga, APARTMENT RENTAL CLERK PCP - General Family Medicine 03/24/16 02/04/23 documented as of this encounter
--- OUTSIDE RECORDS SUMMARY | 2024-05-11 14:43 | XMS_ITS | Encounter Summary ---
Author Organization [facility] Address [facility] [place] [address] Care Team Providers Care Private Branch Exchange Installer Name Role Phone Deborah Quiroga ANURAG Primary Care Provider [phone] Encounter Details Date Type Department Care Team (Late st Contact Info) Description 06/09/2016 Orders Only Hematology [place] [phone] Nitesh Pina Jr., MD [facility] DR HEMATOLOGY [place] [address] Cyclical neutropenia Social History Tobacco Use Types [...] [facility] Hematology Oncology [address] [place] [address] 05/12/2024 10:00 AM EDT Office Visit Hematology [place] [phone] Markel Borjas MD [facility] DR HEMATOLOGY [place] [address] 03/01/2025 4:15 PM EDT Office Visit Dermatology at [place] [address] [facility] [place] [address] Marek Bonilla MD [address] [facility] [address], [place] [address] documented as of this encounter Results * Immunophenotyping Flow Cytometry (06/09/2016 4:53 PM EST) Immunophenotyping Flow See Comment [facility] Comment: When completed by the Pathologist, the Flow Cytometry Report ([id number]) will display under the Pathology Results section within eDH. 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
--- OUTSIDE RECORDS SUMMARY | 2024-05-11 14:43 | XMS_ITS | Encounter Summary ---
[place] [address] Care Team Providers Care Senior Ux Developer Name Role Phone JunaidDeborah APRN Primary Care Provider [phone] Reason for Visit * Reason Onset Date Comments Pre Procedure Call 06/18/2016 Encounter Details Date Type Department Care Team (Late st Contact Info) Description 06/18/2016 Telephone Hematology [place] [address] Alexandrea Greenwood RN Pre Procedure Call Social [...] [facility] [place] Oncology [address] [place] [address] 05/12/2024 10:00 AM EDT Office Visit [place]ology [place] [address] Markel Borjas MD [facility] DR [place] [address] 03/01/2025 4:15 PM EDT Office Visit Dermatology at [place] [address] [facility] [place] [address] Marek Bonilla MD [address] [place] [address] documented as of this encounter Visit Diagnoses Not on filedocumented in this encounter Care Teams Senior Ux Developer Relationship Specialty Start Date End Date Deborah Quiroga, PRIMARY SPECIAL EDUCATOR PCP - General Family Medicine 03/24/16 02/04/23 documented as of this encounter
--- OUTSIDE RECORDS SUMMARY | 2024-05-11 14:43 | XMS_ITS | Encounter Summary ---
Author Organization [facility] Address [facility] [place] [address] Care Team Providers Care Forepart Rounder Name Role Phone Junaid, Deborah Shields APRN Primary Care Provider [phone] Reason for Visit * Auth/Cert Specialty Diagnoses / Procedures Referred By Crispin t Referred To Contact Diagnoses AVS Procedures CARDIAC CATHETERIZATION Referral ID Status Reason Start Date Expiration Date Visits Re quested Visits Authorized [id number] 1 1 Encounter Details Date Type Department Care Team (Late st Contact Info) Description 06/03/2016 7:30 AM EDT - 06/03/2016 8:30 AM EDT Surgery [place] [phone] Mario Alberto Escobedo MD [facility] [place] [address] CARDIAC CATHETERIZATION Social History Tobacco Use Types [...] by your doctor, do not take any vuak-mhs-zoidysb medicinesor herbal preparations without first discussing this with your doctor or pharmacist. There is the possibility of side effects and interactions when these are combined. Follow Up Care Who to call with questions or problems If there are any questions or problems that you think might be related to your cardiac cath or angioplasty, contact the electromyographic technician marine extension agent by calling [facility] . * Patient Instructions* Felicia Corrigan - 06/03/2016 9:33 AM EDT Cardiology Instructions Call your doctor if: Chest pain, dyspnea, pain or swelling in legs occurs. If you have non-emergent questions between now and the time of your follow up appointments: -During 8am-5pm Wednesday through Wednesday call [phone] to speak with a nurse in the cardiology clinic -All other times call [phone] and ask to speak to the director consumer marine extension agent. MEDICATIONS - restart your spironolactone, discontinue prior [...] Appointments: Primary care provider: Cardiology: Deborah Hahn, SPONGE PRESS OPERATOR [phone] Follow up as planned or as needed. Dr. Esparza [phone] Other follow-up appointment: Hematology - Dr. Mario [...] [facility] [place] On[place] [address] [place] [address] 05/12/2024 10:00 AM EDT Office Visit Hematology [place] [address] Markel Borjas MD [facility] [address] [place] [address] 03/01/2025 4:15 PM EDT Office Visit Dermatology at [place] [address] [facility] [place] [phone] Marek Bonilla MD [address], [place] [address] documented as of this encounter Procedures Procedure [...] AM EDT) Green Hold Sample in lab. [facility] Blood specimen (specimen) Venous Draw / Unknown 06/03/2016 11:45 AM EDT 06/03/2016 12:12 PM EDT Mario Alberto Escobedo MD CHEMISTRY ORDERABLES Performing Organization Address City/[facility]/ZIP Co de Phone Number [facility] [place] [address] * Methylmalonic acid, serum (06/03/2016 11:45 AM EDT) Methylmalonic Acid (NOVEMBER) 0.21 <=0.40 nmol/mL [facility] Comment: Test Performed by: [address] [address] Embossing Machine Operator: Raymond Chaudhry II, M.D., Ph.D. Blood specimen (specimen) 06/03/2016 11:45 AM EDT 06/03/2016 1:57 PM EDT Narrative Resulting Agency Comment Spec In Lab Mario Alberto Escobedo MD LAB SEND OUT ORDERAB LES Performing Organization Address City/[facility]/ZIP Co de Phone Number [facility] [place] [address] * Granulocyte Antibody (06/03/2016 11:45 AM EDT) Pathologist [facility] Granulocyte Ab (NOVEMBER) Negative Not Applicable [facility] Comment: ADDITIONAL INFORMATION Method: Immunofluorescent Assay Performing Laboratory CLIA# [id number] This test was developed and its performance characteristics determined by [facility] in a manner consistent with CLIA requirements. This test has not been cleared or approved by the U.S. Food and Drug Administration. Test Performed by: [place] [address] Embossing Machine Operator: Raymond Chaudhry II, M.D., Ph.D. Blood specimen (specimen) 06/03/2016 11:45 AM EDT 06/03/2016 1:57 PM EDT Narrative Resulting Agency Comment Spec In Lab Mario Alberto Escobedo MD LAB SEND OUT ORDERAB LES [facility] [place] [address] * TSH (06/03/2016 11:45 AM EDT) Pathologist [facility] Thyroid Stimulating Hormone 2.18 0.27 - 4.20 mcIU/mL [facility] Blood specimen (specimen) 06/03/2016 11:45 AM EDT 06/03/2016 12:11 PM EDT Narrative Resulting Agency Comment Spec In Lab Mario Alberto Escobedo MD CHEMISTRY ORDERABLES Performing Organization Address City/[facility]/ZIP Co de Phone Number [facility] [place] [address] * Homocysteine Total, Plasma (06/03/2016 11:45 AM EDT) Homocystine 9 <=15 mcmol/L [facility] Blood specimen (specimen) 06/03/2016 11:45 AM EDT 06/03/2016 12:11 PM EDT Narrative Resulting Agency Comment Spec In Lab Mario Alberto Escobedo MD CHEMISTRY ORDERABLES Performing Organization Address City/[facility] Co de Phone Number [facility] [place] [address] * Folate, serum (06/03/2016 11:45 AM EDT) Folate >20.0 4.8 - 24.2 ng/mL [facility] Blood specimen (specimen) 06/03/2016 11:45 AM EDT 06/03/2016 12:04 PM EDT Narrative Resulting Agency Comment Spec In Lab Mario Alberto Escobedo MD CHEMISTRY ORDERABLES Performing Organization Address [facility] Co de Phone Number [facility] [place] [address] * (ABNORMAL) Sedimentation rate (06/03/2016 11:45 AM EDT) Sedimentation Rate Automated 41(H) 0 - 20 mm/hr [facility] Blood specimen (specimen) 06/03/2016 11:45 AM EDT 06/03/2016 12:04 PM EDT Narrative Resulting Agency Comment Spec In Lab Mario Alberto Escobedo MD HEMATOLOGY ORDERABLE S Performing Organization Address City/[facility] Co de Phone Number [facility] [place] [address] * Lactate Dehydrogenase (06/03/2016 11:45 AM EDT) Lactate Dehydrogenase 164 110 - 220 unit/L [facility] Blood specimen (specimen) 06/03/2016 11:45 AM EDT 06/03/2016 12:11 PM EDT Narrative Resulting Agency Comment Spec In Lab Mario Alberto Escobedo MD CHEMISTRY ORDERABLES Performing Organization Address City/[facility]/ZIP Co de Phone Number [facility] [place] [address] * Comprehensive metabolic panel (non-fasting) (06/03/2016 11:45 AM EDT) Glucose 90 65 - 199 mg/dL [facility] Comment:Diabetes: >=200 mg/d L plus symptoms Blood Urea Nitrogen 11 8 - 18 mg/dL [facility] [...] 107 mmol/L [facility] Carbon Dioxide 25 22 - 31 mmol/L [facility] Anion Gap 14 5 - 15 mmol/L [facility] Calcium 9.2 8.5 - 10.5 mg/dL [facility] Protein, Total 7.0 6.1 - 8.0 gm/dL [facility] Albumin 4.0 3.2 - 5.2 gm/dL [facility] Aspartate Aminotransferase 17 0 - 30 unit/L [facility] Alanine Aminotransferase 9 0 - 30 unit/L [facility] Alkaline Phosphatase 81 40 - 104 unit/L [facility] Bilirubin, Total 0.4 0.2 - 1.3 mg/dL [facility] Bilirubin, Direct 0.1 0.0 - 0.3 mg/dL [facility] Est Glomerular Filtration Rate >60 [...] the following links into your internet browser. [email or web address] Blood specimen (specimen) 06/03/2016 11:45 AM EDT 06/03/2016 12:11 PM EDT Narrative Resulting Agency Comment Spec In Lab Mario Alberto Escobedo MD CHEMISTRY ORDERABLES [facility] [place] [address] documented in this encounter Visit Diagnoses Diagnosis [...] Hernandez) documented in this encounter Care Teams Forepart Rounder Relationship Specialty Start Date End Date Deborah Quiroga, SPONGE PRESS OPERATOR PCP - General Family Medicine 03/24/16 02/04/23 documented as of this encounter
--- OUTSIDE RECORDS SUMMARY | 2024-05-11 14:43 | XMS_ITS | Encounter Summary ---
Author Organization [facility] [place] [address] Care Team Providers Care Conveyor Belt Installer Name Role Phone EitanDanni ANURAG Primary Care Provider [phone] Encounter Details Date Type Department Care Team (Late st Contact Info) Description 01/22/2014 Telephone Cardiology at [address] [phone] Cynthia Arrington LPN Social History Tobacco Use [...] LPN - 01/23/2014 2:39 PM EDT This field underwriter did not receive a call back [...] [facility] [place] [address] [place] [address] 05/12/2024 10:00 AM EDT Office Visit Hematology [place] [address] Markel Borjas MD [facility] [address] HEMATOLOGY [place] [address] 03/01/2025 4:15 PM EDT Office Visit Dermatology at [place] [address] [facility] [place] [phone] Marek Bonilla MD [address], [place] [address] documented as of this encounter Visit Diagnoses Not on filedocumented in this encounter Care Teams Conveyor Belt Installer Relationship Specialty Start Date End Date Danni Laird APRN [address] [place] [address] PCP - General 01/23/14 11/11/14 documented as of this encounter
--- OUTSIDE RECORDS SUMMARY | 2024-05-11 14:43 | XMS_ITS | Encounter Summary ---
[place] [address] Care Team Providers Care Second Vp Hr Assessment Name Role Phone Ashley Quirogan Cornelius ANURAG Primary Care Provider [phone] Encounter Details Date Type Department Care Team (Late st Contact Info) Description 03/24/2016 Notes [place] [phone] Alfa Lua Social History Tobacco Use Types [...] assessments completed: Wadsworth Score: 6/6 IADL: 7/7 Director [facility] Strength Trials: 18.4, 15.0, 16.8 (right hand dominant) 5 meter walk test in seconds x3: 4.98, 4.88, 4.45 KCCQol: 98% Alfa Lua documented in this encounter Plan of Treatment Upcoming Encounters Date Type Department Care Team (Late st Contact Info) Description 05/12/2024 9:00 AM EDT Laboratory Appointment Lab at [facility] Hematology Oncology [address] [place] [address] 05/12/2024 10:00 AM EDT Office Visit Hematology [place] [address] Markel Borjas MD [facility] [address] HEMATOLOGY [place] [address] 03/01/2025 4:15 PM EDT Office Visit Dermatology at [place] [address] [facility] [place] [phone] Marek Bonilla MD [address], [place] [address] documented as of this encounter Visit Diagnoses Not on filedocumented in this encounter Care Teams Second Vp Hr Assessment Relationship Specialty Start Date End Date Deborah Quiroga APRN PCP - General Family Medicine 03/24/16 02/04/23 documented as of this encounter
--- OUTSIDE RECORDS SUMMARY | 2024-05-11 14:43 | XMS_ITS | Encounter Summary ---
Author Organization [facility] Address [facility] [place] [address] Care Team Providers Care Orthodontist Small Business Owner Name Role Phone Junaid Deborah Shields APRN Primary Care Provider [phone] Encounter Details Date Type Department Care Team (Latest Contact Info) Description 05/19/2016 11:00 AM EDT Clinical [place] [phone] Nonrheumatic aortic valve stenosis Social History Tobacco [...] [facility] [place] [address] [place] [address] 05/12/2024 10:00 AM EDT Office Visit Hematology [place] [address] Markel Borjas MD [facility] [place] [address] 03/01/2025 4:15 PM EDT Office Visit Dermatology at [place] [address] [facility] [place] [phone] Marek Bonilla MD [address], [place] [address] documented as of this encounter Procedures Procedure [...] (Bezet) 448 ms MUSE SYSTEM Calculated P Raiford 37 degrees MUSE SYSTEM Calculated R Raiford 31 degrees MUSE SYSTEM Calculated T Raiford 25 degrees MUSE SYSTEM INTERPRETATION Normal sinus rhythm Normal ECG No previous ECGs available Confirmed by MD Becca, Deangelo ([id number]) on 05/19/2016 5:23:33 PM MUSE SYSTEM 05/19/2016 11:4 3 AM EDT 05/19/2016 5:23 PM EDT Alirio Esparza MD ECG ORDERABLES [employer] documented in this encounter Visit Diagnoses Diagnosis Nonrheumatic aortic valve stenosis Aortic valve disorders Chronic idiopathic neutropenia Other neutropenia documented in this encounter Care Teams Orthodontist Small Business Owner Relationship Specialty Start Date End Date Deborah Quiroga, HARDBOARD FACTORY WORKER PCP - General Family Medicine 03/24/16 02/04/23 documented as of this encounter
--- OUTSIDE RECORDS SUMMARY | 2024-05-11 14:43 | XMS_ITS | Encounter Summary ---
Author Organization [facility] [place] [address] Care Team Providers Care Robotics Systems Engineer Name Role Phone Ashley Quirogazac Shields APRN Primary Care Provider [phone] Encounter Details Date Type Department Care Team (Late st Contact Info) Description 07/03/2016 External Results Hematology [place] [phone] Matthew Cervantes, DO [address] [place] [phone] Social History Tobacco Use Types Packs/Day Years [...] at [facility] [place] [address] [place] [address] 05/12/2024 10:00 AM EDT Office Visit [place]ology [place] [phone] Markel Borjas MD [facility] [address] HEMATOLOGY [place] [address] 03/01/2025 4:15 PM EDT Office Visit Dermatology at [place] [address] [place] [phone] Marek Bonilla MD [address], [place] [address] documented as of this encounter Procedures Procedure Name Priority Date/Time Associated Diagnosis Comments BONE MARROW ASPIRATION PERFO RMED WITH BONE MARRROW BIOPSY Routine 06/28/2016 documented in this encounter Results * BONE MARROW ASPIRATION PREFORMED WITH BONE MARRROW BIOPSY (06/28/2016) Matthew Cervantes DO GENERAL SURGI DANIEL ORDERABLES documented in this encounter Visit Diagnoses Not on filedocumented in this encounter Care Teams Robotics Systems Engineer Relationship Specialty Start Date End Date Deborah Quiroga APRN PCP - General Family Medicine 03/24/16 02/04/23 documented as of this encounter
--- OUTSIDE RECORDS SUMMARY | 2024-05-11 14:43 | XMS_ITS | Encounter Summary ---
Author Organization [facility] Address [facility] [place] [address] Care Team Providers Care Talent Development Analyst Name Role Phone Deborah Quiroga APRN Primary Care Provider [phone] Reason for Visit * Reason Comments Schedule Office Case * Consultation (Routine) - Closed Specialty Diagnoses / Procedures Referred By Contac t Referred To Contact Hematology and Oncology Diagnoses Leukopenia Neutropenia LEUKOPENIA W/NEUTROPENIA Procedures TC PEGFILGRASTIM, 6MG, INJECTION LEUKOPENIA W/NEUTROPENIA Alirio Esparza MD [facility] CARDIOTHORACIC [place] [address] Mario Alberto Ramos Jr., MD [facility] DR HEMATOLOGY [place] [address] Referral ID Status Reason Start Date Expiration Date V isits Requested Visits Authorized [id number] Closed Consult, Test & Treat 07/17/2016 07/17/2017 1 1 Encounter Details Date Type Department Care Team (Late st Contact Info) Description 06/09/2016 3:00 PM EST Office Visit Hematology [place] [address] Mario Alberto Ramos Jr., MD [facility] [place] [address] Cyclical neutropenia Social History Tobacco Use Types [...] 06/09/2016 3:00 PM EST Hematology Outpatient Clinic [facility] [...] Unknown See Comment Flow Cytometry Report Unknown [id number] ... HematoPathology: Flow Cytometry DIAGNOSIS 1. No [...] [facility] [place] [address] [place] [address] 05/12/2024 10:00 AM EDT Office Visit Hematology [place] [address] Markel Borjas MD [facility] [address] HEMATOLOGY [place] [address] 03/01/2025 4:15 PM EDT Office Visit Dermatology at [place] [address] [place] [phone] Marek Bonilla MD [address], [place] [address] documented as of this encounter Procedures Procedure [...] (06/09/2016 4:53 PM EST) Flow Cytometry Report [id number] ?Location: 3K The signing pathologist has (i) [...] by the Clinical Flow Cytometry Laboratory at [facility]. It has not been cleared or approved [...] high complexity clinical laboratory testing. SPECIMEN PROCESSING [id number] Cells for immunophenotypic analysis were derived from [...] MD PATHOLOGY/CYTOLOGY O RDERABLES Performing Organization Address City/[facility]/ZIP Co de Phone Number [facility] [place] [address] * Scan, Peripheral Blood (06/09/2016 4:53 PM EST) Plat estimate Normal [facility] RBC Morphology Normal [facility] Blood specimen (specimen) 06/09/2016 4:53 PM EST 06/09/2016 5:00 PM EST Narrative Resulting Agency Comment Spec In Lab Mario Alberto Ramos Jr., MD HEMATOLOGY ORDERABLE S Performing Organization Address City/[facility]/ZIP Co de Phone Number [facility] [place] [address] * (ABNORMAL) Differential, Automated (06/09/2016 4:53 PM EST) Pathologist [facility] Neutrophil % 27.7 % [facility] [...] Abs 1.0 0.9 - 3.2 x10(3)/ L [facility] Monocyte % 13.3 % [facility] Monocyte Abs 0.2(L) 0.3 - 0.9 x10(3)/[facility] Eos % 0.6 % [facility] Eosinophils Abs 0.0 0.0 - 0.4 x10(3)/[facility] Basophil % 1.2 % [facility] Baso Absolute 0.0 0.0 - 0.1 x10(3)/[facility] Immature Gran % 0.00 % [facility] [...] - 0.04 x10(3)/[facility] Blood specimen (specimen) 06/09/2016 4:53 PM EST 06/09/2016 5:00 PM EST Narrative Resulting Agency Comment Spec In Lab Mario Alberto Ramos Jr., MD HEMATOLOGY ORDERABLE S Performing Organization Address City/State/[facility] Co de Phone Number [facility] [place] [address] * (ABNORMAL) Hemogram (06/09/2016 4:53 PM EST) White Blood Cell 1.7(Criti gabrielle) 4.0 - 9.5 x10(3)/[facility] Red Blood Cell 3.92(L) 4.00 - 5.21 x10(6)/[facility] Hemoglobin 12.4 11.7 - 15.5 gm/dL [facility] Hematocrit 36.7 35.7 - 45.8 % [facility] Mean Cell Volume 93.6 82.6 - 94.4 fL [facility] Mean Cell Hemoglobin 31.6 27.1 - 32.0 pg [facility] Mean Cell Hemoglobin Concentration 33.8 31.7 - 35.0 gm/dL [facility] Platelet 234 145 - 357 x10(3)/mc L [facility] RDW Standard Deviation 39.8 37.0 - 46.0 fL [facility] RDW coefficient of variation 11.8 11.5 - 14.1 % [facility] Mean Platelet Volume 8.6 7.6 - 12.9 fL [facility] NRBC% auto 0.0 % [facility] NRBC Absolute 0.000 0.000 - 0.000 x10(3)/mc L [facility] Blood specimen (specimen) 06/09/2016 4:53 PM EST 06/09/2016 5:00 PM EST Narrative Resulting Agency Comment Spec In Lab Mario Alberto Ramos Jr., MD HEMATOLOGY ORDERABLE S Performing Organization Address City/[facility]/ZIP Co de Phone Number [facility] [place] [address] * Immunophenotyping Flow Cytometry (06/09/2016 4:53 PM EST) Immunophenotyping Flow See Comment [facility] Comment: When completed by the Pathologist, the Flow Cytometry Report ([id number]) will display under the Pathology Results section within [facility]. 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
--- OUTSIDE RECORDS SUMMARY | 2024-05-11 14:43 | XMS_ITS | Encounter Summary ---
Author Organization [facility] Address [facility] [place] [address] Care Team Providers Care Combine Operator Name Role Phone EitanMagnusDanni ANURAG Primary Care Provider Encounter Details Date Type Department Care Team (Latest Contact Info) Description 01/23/2014 7:45 AM EDT - 01/23/2014 5:50 PM EDT Hospital [place] [address] Alan Jacobson MD [facility] [place] [address] Cardiomyopathy; SOB (shortness of breath) Discharge Disposition: [...] by your doctor, do not take any ewag-jif-dygpyfr medicines or herbal preparations without first discussing this with your doctor or pharmacist. There is the possibility of side effect and interactions when these are combined. Follow up Care Who to Call with Questions or Problems If there are any questions or problems that you think might be related to your cardiac cath or angioplasty, contact the profiling machine setup operator metal bonding press operator by calling [facility] at . documented in [...] [facility] [place] [facility] [place] Hematology Oncology [address] [place] [address] 05/12/2024 10:00 AM EDT Office Visit H[place]ology [place] [address] Markel Borjas MD [facility] [address] [place] [address] 03/01/2025 4:15 PM EDT Office Visit Dermatology at [place] [address] [place] [address] Marek Bonilla MD [address], [place] [address] documented as of this encounter Procedures Procedure Name Priority Date/Time Associated Diagnosis Comments ECHOCARDIOGRAM TRANSTHORACIC Routine 01/23/2014 3:17 PM EDT SOB (shortness of breath) documented in this encounter Results * Echocardiogram Transthoracic(Leb) (01/23/2014 3:17 PM EDT) Pathologist [facility] EF 50 HEARTLAB SYSTEM Anatomical Region Laterality Modality Other 01/23/2014 Narrative 01/23/2014 4:35 PM EDT Procedure: ? Transthoracic Echocardiogram Patient: ? ANDREW ONESIMO M ?(Age): 1955(58) Med Rec#: ?[id number] ? Sex: ?F ? Site Loc: ?[facility] ? Ht / Wt: ??158(cm)/93(kg) Pt. Loc: ? Adult Floor ?BSA: ?2.02 Study Date: ?01/23/2014 ? Pt. Type: Inpatient Tape: ? Referring: Lee Kincaid ([id number]) Referring: ANNALISA Purchasing/Receiving: Miguel Beverly Diagnosis:CPT Code(s): ??Echo Full (99940), ??Spectral Doppler (99826), Color Doppler (50339), Indication(s): ??Aortic stenosis Rhythm: Sinus HR ?BP [...] ? Mid-Inferior ?Hypokinetic ? Mid-Inferoseptal ?Hypokinetic ? Gilbert-Septal ? Hypokinetic ? Gilbert-Anterior ? Hypokinetic ? Gilbert-Lateral ?Hypokinetic ? Gilbert-Inferior ? Hypokinetic ? Gilbert-Tip ?Hypokinetic ? Chambers ?Value ?Units (Range) ? [...] 01/23/2014 16:34:37 Images reviewed and interpretation verified [facility] Cardiac Ultrasound Laboratory Procedure Note Lee Kincaid MD - 01/23/2014 Procedure: Transthoracic Echocardiogram Patient: ANDREW Mejias (Age): 1955(58) Med Rec#: [id number] Sex: F Site Loc: [facility] Ht / Wt: 158(cm)/93(kg) Pt. Loc: Adult Floor BSA: 2.02 Study Date: 01/23/2014 Pt. Type: Inpatient Tape: Referring: Lee Kincaid ([id number]) Referring: ANNALISA Purchasing/Receiving: Miguel Beverly Diagnosis:CPT Code(s): Echo Full (46199), Spectral Doppler (87006), Color Doppler (18363), Indication(s): Aortic stenosis Rhythm: Sinus HR BP [...] Hypokinetic Mid-Posterolateral Hypokinetic Mid-Inferior Hypokinetic Mid-Inferoseptal Hypokinetic Gilbert-Septal Hypokinetic Gilbert-Anterior Hypokinetic Gilbert-Lateral Hypokinetic Gilbert-Inferior Hypokinetic Gilbert-Tip Hypokinetic Chambers Value Units (Range) IVSd 2D [...] 01/23/2014 16:34:37 Images reviewed and interpretation verified [facility] Cardiac Ultrasound Laboratory Lee [...] RN) documented in this encounter Care Teams Combine Operator Relationship Specialty Start Date End Date Danni Laird APRN [address] [place] [address] PCP - General 01/23/14 11/11/14 documented as of this encounter
--- OUTSIDE RECORDS SUMMARY | 2024-05-16 15:34 | XMS_ITS | Encounter Summary ---
Author Organization [facility] Address [address] [place] [address] Care Team Providers Care Steam Pipe Fitter Name Role Phone Ashley Chavez Primary Care Provider [phone] Encounter Details Date Type Department Care Team (Late st Contact Info) Description 10/30/2022 Lab Requisition [facility] Pathology & Laboratory Medicine - [address] [address] Outr Resulting Lab, Provider Social History Tobacco [...] <30.0 IU/mL 11/03/2022 13:08 EDT [facility] Comment: ? Negative: ??<30.0 IU/mL ? Borderline Positive: ??30.0 - 75.0 IU/mL ? Positive: ??>75.0 IU/mL Results were obtained with the INOVA QUANTA Lite dsDNA SC DOMO assay on the [employer] DSX. Blood VENOUS BLOOD / Unknown 10/29/2022 14:00 EDT 10/30/2022 19:27 EDT Provider Outr Resulting Lab IMMUNOLOGY A ND SEROLOGY ORDERABLES Performing Organization Address [facility] de Phone Number [facility] [address] [place] [address] * SM (MORENO) ANTIBODY (10/29/2022 14:00 EDT) [facility] SM (Moreno) Antibody 18.5 <20.0 Units 11/03/2022 14:26 EDT [facility] [...] A ND SEROLOGY ORDERABLES Performing Organization Address [facility] de Phone Number [facility] [address] [place] [address] documented in this encounter Visit Diagnoses Not on filedocumented in this encounter Care Teams Steam Pipe Fitter Relationship Specialty Start Date End Date Ashley Chavez ARNP [address] [place] [address] PCP - General 07/11/10 documented as of this encounter
--- OUTSIDE RECORDS SUMMARY | 2024-05-16 15:34 | XMS_ITS | Encounter Summary ---
Author Organization [facility] Address [address] [place] [address] Care Team Providers Care Bow Maker Name Role Phone Ashley Chavez Primary Care Provider [phone] Encounter Details Date Type Department Care Team (Late st Contact Info) Description 03/22/2024 Lab Requisition [facility] Pathology & Laboratory Medicine - [address] [address] Consuelo Guerrero, DO [address] [place], [place] [address] Diaphragmatic hernia without obstruction or gangrene; Anemia, [...] explore management options, if applicable. 03/24/2024 10:36 [facility] Final Diagnosis A. JEJUNUM, [...] - Deeper sections x3 examined. 03/24/2024 10:36 [facility] Attestation There was significant resident/fellow involvement in the diagnostic evaluation of this case. By the signature below, the attending physician certifies that they have personally conducted a gross and/or microscopic examination of the described specimens and rendered or confirmed the above diagnosis. 03/24/2024 10:36 [facility] at 1036 Clinical History Anemia, hiatal hernia, 38 cm aguayo diverticulosis 03/24/2024 10:36 [facility] Gross Description A. Received [...] Luis Torres 03/22/2024 9:36 03/24/2024 10:36 EDT [facility] Resident/Estuardo w: Luis Felipe Bragg DO 03/24/2024 10:36 T [facility] Performing Lab [facility] 10:36 T [facility] Scanned Images 03/24/2024 10:36 T [facility] Tissue POLYP OF COLON / [...] 8:19 EDT Consuelo Guerrero DO PATHOLOGY ORDERABLES [facility] [address] [place] [address] documented in this encounter Visit Diagnoses Diagnosis Diaphragmatic hernia without obstruction or gangrene Diaphragmatic hernia without mention of obstruction or gangrene Anemia, unspecified documented in this encounter Care Teams Bow Maker Relationship Specialty Start Date End Date Ashley Chavez ARNP [address] [place] [address] PCP - General 07/11/10 documented as of this encounter
--- OUTSIDE RECORDS SUMMARY | 2024-05-16 15:34 | XMS_ITS | Encounter Summary ---
Author Organization [facility] Address [address] [place] [address] Care Team Providers Care Vp Digital Marketing Social Media And Crm Name Role Phone Ashley Chavez Primary Care Provider [phone] Encounter Details Date Type Department Care Team (Late st Contact Info) Description 01/07/2023 Lab Requisition [facility] Pathology & Laboratory Medicine - [address] [id number] Outr Resulting Lab, Provider Social History Tobacco [...] 56.2 55.8 - 66.1 % 01/08/2023 11:28 [facility] Albumin g/dL 3.9 3.6 - 5.2 g/dL 01/08/2023 11:28 [facility] Alpha-1 % 5.1(H) 2.9 - 4.9 % 01/08/2023 11:28 [facility] Alpha-1 g/dL 0.40 0.15 - 0.40 g/dL 01/08/2023 11:28 [facility] Alpha-2 % 7.0(L) 7.1 - 11.8 % 01/08/2023 11:28 [facility] Alpha-2 g/dL 0.50 0.50 - 1.00 g/dL 01/08/2023 11:28 [facility] Beta % 12.7 8.4 - 13.1 % 01/08/2023 11:28 [facility] Beta g/dL 0.90 0.60 - 1.20 g/dL 01/08/2023 11:28 [facility] Gamma % 19.0(H) 11.1 - 18.8 % 01/08/2023 11:28 [facility] Gamma g/dL 1.30 0.60 - 1.60 g/dL 01/08/2023 11:28 [facility] SPEP Comment No apparent monoclonal protein seen on serum electrophoresis 01/08/2023 11:28 [facility] Comment:See scanned/suppleme ntary report. Total Protein 6.9 6.3 - 8.2 g/dL 01/08/2023 11:28 [facility] Blood VENOUS BLOOD / Unknown 01/06/2023 14:40 EDT 01/07/2023 17:37 EDT Provider Outr Resulting Lab CHEMISTRY & BLOOD GAS ORDERABLES Performing Organization Address City/State/[facility] Co de Phone Number [facility] [address] [place] [address] * PROTEIN, TOTAL (01/06/2023 14:40 EDT) Blood VENOUS BLOOD / Unknown 01/06/2023 14:40 EDT 01/07/2023 17:37 EDT Provider Outr Resulting Lab CHEMISTRY & BLOOD GAS ORDERABLES Performing Organization Address [facility] Co de Phone Number [facility] [address] [place] [address] * (ABNORMAL) EXTRACTABLE NUCLEAR ANTIGEN PANEL (01/06/2023 14:40 EDT) SSA Antibody 1.3 <20.0 Units 01/08/2023 15:42 EDT [facility] Comment: ? Negative: <20.0 [...] Antibody 1.5 <20.0 Units 01/08/2023 15:42 EDT [facility] Comment: ? Negative: <20.0 [...] Antibody 15.3 <20.0 Units 01/08/2023 15:42 EDT [facility] Comment: ? Negative: <20.0 Units ? Weak Positive: 20.0 - 39.9 Units ? Moderate Positive: 40.0 - 80.0 Units ? Strong Positive: >80.0 Units Results were obtained with the [employer] QUANTA Lite Sm DOMO. ??Sm values obtained with different manufacturers' assay methods may not be used interchangeably. ??The magnitude of the reported IgG levels cannot be correlated to an endpoint titer. SUPERVISOR PAIRING AND INSPECTING Antibody 149.1(H) <20.0 Units 01/08/2023 15:42 EDT [facility] Comment: ? Negative: <20.0 Units ? Weak Positive: 20.0 - 39.9 Units ? Moderate Positive: 40.0 - 80.0 Units ? Strong Positive: >80.0 Units Results were obtained with the [employer] Quanta Lite SUPERVISOR PAIRING AND INSPECTING DOMO. SUPERVISOR PAIRING AND INSPECTING values obtained with different massage coordinator's assay methods may not be used interchangeaby. ??The magnitude of the reported IgG levels cannot be be correlated to an endpoint titer. A positive result in the Quanta Lite SUPERVISOR PAIRING AND INSPECTING DOMO indicates the presence of antibodies reactive with the SUPERVISOR PAIRING AND INSPECTING/Sm complex but cannot distinguish between anti-Sm and anti-SUPERVISOR PAIRING AND INSPECTING activity. Blood VENOUS BLOOD / Unknown 01/06/2023 14:40 EDT 01/07/2023 17:37 EDT Provider Outr Resulting Lab IMMUNOLOGY A ND SEROLOGY ORDERABLES [facility] [address] [place] [address] * (ABNORMAL) ANTI NUCLEAR AB (FRANCISCO), IFA (01/06/2023 14:40 EDT) FRANCISCO Interpretation Positive(A) Negative 01/08/2023 15:22 EDT [facility] Comment: Result is equal to or greater than 1:5120. For titers greater than or equal to 1:160 (except the centromere, nucleolar, and dense fine speckled patterns) it is recommended that specific, follow-up autoantibody testing (such as for dsDNA and Extractable Nuclear Antigens) be performed on all diffuse and/or speckled patterns. FRANCISCO Titer and Pattern 1 1:5120 Speckled 01/08/2023 15:22 EDT [facility] Blood VENOUS BLOOD / Unknown 01/06/2023 14:40 EDT 01/07/2023 17:37 EDT Narrative [facility] - 01/08/2023 15:22 EDT Results were obtained with the INOVA NOVA Lite HEp-2 FRANCISCO Kit by indirect immunofluorescence. Provider Outr Resulting Lab IMMUNOLOGY A ND SEROLOGY ORDERABLES Performing Organization Address City/State/[facility] Co de Phone Number [facility] [address] [place] [address] documented in this encounter Visit Diagnoses Not on filedocumented in this encounter Care Teams Vp Digital Marketing Social Media And Crm Relationship Specialty Start Date End Date Ashley Chavez ARNP [address] [place] [address] PCP - General 07/11/10 documented as of this encounter
--- OUTSIDE RECORDS SUMMARY | 2024-05-16 15:34 | XMS_ITS | Encounter Summary ---
Author Organization [facility] Address [address] [place] [address] Care Team Providers Care Peer Counselor Name Role Phone Ashley Chavez Primary Care Provider [phone] Encounter Details Date Type Department Care Team (Late st Contact Info) Description 05/12/2022 Lab Requisition [facility] Pathology & Laboratory Medicine - [address] [address] Outr Resulting Lab, Provider Social History Tobacco [...] & PHONE RESULT Performing Organization Address [facility]/ZIP Co de Phone Number [facility] [address] [place] [address] * (ABNORMAL) HOMOCYSTEINE (05/12/2022 14:32 EDT) Homocysteine [...] GAS ORDERABLES Performing Organization Address [facility] Co de Phone Number [facility] [address] [place] [address] * HAPTOGLOBIN (05/12/2022 14:32 EDT) Pathologist [facility] Haptoglobin 138 32 - 197 mg/dL 05/13/2022 9:55 EDT [facility] Blood VENOUS BLOOD / Unknown 05/12/2022 14:32 EDT 05/12/2022 21:36 EDT Provider Outr Resulting Lab CHEMISTRY & BLOOD GAS ORDERABLES Performing Organization Address [facility] [[email or web address]] Co de Phone Number [facility] [address] [place] [address] * (ABNORMAL) ANTI NUCLEAR AB (FRANCISCO), IFA [...] ORDERABLES [facility] [address] [place] [address] documented in this encounter Visit Diagnoses Not on filedocumented in this encounter Care Teams Peer Counselor Relationship Specialty Start Date End Date Ashley Chavez ARNP [address] [place] [address] PCP - General 07/11/10 documented as of this encounter
--- OUTSIDE RECORDS SUMMARY | 2024-05-16 15:34 | XMS_ITS | Encounter Summary ---
Author Organization [facility] Address [address] [place] [address] Care Team Providers Care Senior Revenue Accountant Name Role Phone Scott, Ashley WILLIAM Primary Care Provider [phone] Encounter Details Date Type Department Care Team (Late st Contact Info) Description 03/21/2024 Lab Requisition [facility] Pathology & Laboratory Medicine - [address] [address] Consuelo Guerrero, DO [address] [place], [place] [address] Encounter for other general examination Social History [...] 13:00 EDT) LORY Negative 03/21/2024 22:31 EDT [facility] Blood VENOUS BLOOD / Unknown 03/21/2024 13:00 EDT 03/21/2024 21:51 EDT Consuelo Guerrero DO BLOOD BANK TESTS [facility] [address] [place] [address] documented in this encounter Visit Diagnoses Diagnosis Encounter for other general examination documented in this encounter Care Teams Senior Revenue Accountant Relationship Specialty Start Date End Date Ashley Chavez ARNP [address] [place] [address] PCP - General 07/11/10 documented as of this encounter
--- OUTSIDE RECORDS SUMMARY | 2024-05-16 15:34 | XMS_ITS | Clinical Summary ---
Author Organization [facility] Address [address] [place] [address] Care Team Providers Care Media Theorist And Author Of Name Role Phone Ashley Chavez Primary Care Provider [phone] Encounters Date Type Department Care Team Description 03/22/2024 Lab Requisition [facility] Pathology & Laboratory [address] [address] Consuelo Guerrero, DO Diaphragmatic hernia without obstruction or gangrene; Anemia, unspecified 03/21/2024 Lab Requisition [facility] Pathology & Laboratory [address] [address] Consuelo Guerrero, DO Encounter for other general examination 03/21/2024 Lab Requisition [facility] Pathology & Laboratory [address] [address] Outr Resulting Lab, Provider from Last 3 [...] 22:31 EDT [facility] Blood VENOUS BLOOD / Unknown 03/21/2024 13:00 EDT 03/21/2024 21:51 EDT Consuelo Guerrero DO BLOOD BANK TESTS Performing Organization Address [facility] Co de Phone Number [facility] B[facility]ANK [address] [place] [address] * HAPTOGLOBIN (03/21/2024 13:00 EDT) Haptoglobin 183 32 - 197 mg/dL 03/22/2024 10:25 EDT [facility] Blood VENOUS BLOOD / Unknown 03/21/2024 13:00 EDT 03/21/2024 21:50 EDT Provider Outr Resulting Lab CHEMISTRY & BLOOD GAS ORDERABLES Performing Organization Address [facility]/ZIP Co de Phone Number [facility] [address] [place], [place] [address] * SURGICAL PATHOLOGY (03/21/2024 11:35 EDT) Note to Patient The following pathology results have been interpreted by your pathologist and may be available to you before your health provider has had the opportunity to review them. Please allow time for your provider to receive these results and explore management options, if applicable. 03/24/2024 10:36 EDT [facility] Final Diagnosis A. JEJUNUM, PROXIMAL, [...] - Deeper sections x3 examined. 03/24/2024 10:36 [facility] Attestation There was significant resident/fellow involvement in the diagnostic evaluation of this case. By the signature below, the attending physician certifies that they have personally conducted a gross and/or microscopic examination of the described specimens and rendered or confirmed the above diagnosis. 03/24/2024 10:36 [facility] at 1036 Clinical History Anemia, hiatal hernia, 38 cm aguayo diverticulosis 03/24/2024 10:36 [facility] Gross Description A. Received [...] 10:36 EDT [facility] Resident/Estuardo w: Luis Felipe Bragg DO 03/24/2024 10:36 EDT [facility] Performing Lab [facility] 10:36 EDT [facility] Scanned Images 03/24/2024 10:36 EDT [facility] Tissue POLYP OF COLON / [...] 8:19 EDT Consuelo Guerrero DO PATHOLOGY ORDERABLES [facility] [address] [place] [address] from Last 3 Months Care Teams Media Theorist And Author Of Relationship Specialty Start Date End Date Ashley Chavez ARNP [address] [place] [address] PCP - General 07/11/10
--- OUTSIDE RECORDS SUMMARY | 2024-05-16 15:34 | XMS_ITS | Referral Summary ---
Author Organization [facility] Address [address] [place] [address] Care Team Providers Care Veterinary Hospital Attendant Name Role Phone Ashley Chavez Primary Care Provider [phone] Encounters Date Type Department Care Team Description 03/22/2024 Lab Requisition [facility] [address] [address] Consuelo Guerrero, DO Diaphragmatic hernia without obstruction or gangrene; Anemia, unspecified 03/21/2024 Lab Requisition [facility] [address] [address] Consuelo Guerrero DO Encounter for other general examination 03/21/2024 Lab Requisition [facility] [address] [address] Outr Resulting Lab, Provider from Last 3 [...] 13:00 EDT) LORY Negative 03/21/2024 22:31 EDT [facility] Blood VENOUS BLOOD / Unknown 03/21/2024 13:00 EDT 03/21/2024 21:51 EDT Consuelo Guerrero DO BLOOD BANK TESTS Performing Organization Address [facility] Co de Phone Number [facility] [address] [place] [address] * HAPTOGLOBIN (03/21/2024 13:00 EDT) Haptoglobin 183 32 - 197 mg/dL 03/22/2024 10:25 EDT [facility] Blood VENOUS BLOOD / Unknown 03/21/2024 13:00 EDT 03/21/2024 21:50 EDT Provider Outr Resulting Lab CHEMISTRY & BLOOD GAS ORDERABLES Performing Organization Address [facility] Co de Phone Number [facility] [address] [place] [address] * SURGICAL PATHOLOGY (03/21/2024 11:35 EDT) Note to Patient The following pathology results have been interpreted by your pathologist and may be available to you before your health provider has had the opportunity to review them. Please allow time for your provider to receive these results and explore management options, if applicable. 03/24/2024 10:36 EDT [facility] Final Diagnosis A. JEJUNUM, PROXIMAL, [...] - Deeper sections x3 examined. 03/24/2024 10:36 [facility] Attestation There was significant resident/fellow involvement in the diagnostic evaluation of this case. By the signature below, the attending physician certifies that they have personally conducted a gross and/or microscopic examination of the described specimens and rendered or confirmed the above diagnosis. 03/24/2024 10:36 [facility] at [address]36 Clinical History Anemia, hiatal hernia, 38 cm aguayo diverticulosis 03/24/2024 10:36 [facility] Gross Description A. [...] Torres 03/22/2024 9:36 03/24/2024 10:36 EDT [facility] Resident/Estuardo w: Luis Felipe Bragg DO 03/24/2024 10:36 EDT [facility] Performing Lab [facility] 10:36 EDT [facility] Scanned Images 03/24/2024 10:36 EDT [facility] Tissue POLYP OF COLON / [...] EDT Consuelo Guerrero DO PATHOLOGY ORDERABLES [facility] [address] [place] [phone] from Last 3 Months Care Teams Veterinary Hospital Attendant Relationship Specialty Start Date End Date Ashley Chavez ARNP [address] [place] [address] PCP - General 07/11/10
--- OUTSIDE RECORDS SUMMARY | 2024-05-16 15:34 | XMS_ITS | Encounter Summary ---
Author Organization [facility] Address [address] [place] [address] Care Team Providers Care Purchasing Manager Name Role Phone Ashley Chavez Primary Care Provider [phone] Encounter Details Date Type Department Care Team (Late st Contact Info) Description 03/21/2024 Lab Requisition [facility] Pathology & Laboratory Medicine - [address] [address] Outr Resulting Lab, Provider Social History Tobacco [...] Resulting Lab CHEMISTRY & BLOOD GAS ORDERABLES [facility] [address] [place] [address] documented in this encounter Visit Diagnoses Not on filedocumented in this encounter Care Teams Purchasing Manager Relationship Specialty Start Date End Date Ashley Chavez ARNP [address] [place] [address] PCP - General 07/11/10 documented as of this encounter
--- OUTSIDE RECORDS SUMMARY | 2024-05-16 15:34 | XMS_ITS | Encounter Summary ---
Author Organization [facility] Address [address] [place] [address] Care Team Providers Care Cosmetics Counter Manager Name Role Phone Ashley Chavez Primary Care Provider [phone] Encounter Details Date Type Department Care Team (Late st Contact Info) Description 04/29/2022 Lab Requisition [facility] Pathology & Laboratory Medicine - [address] [address] Outr Resulting Lab, Provider Social History Tobacco [...] 1.6 <20.0 Units 04/30/2022 12:[address] [facility] [...] ND SEROLOGY ORDERABLES Performing Organization Address [facility] de Phone Number [facility] [address] [place] [address] * SSA ANTIBODIES BY DOMO (04/29/2022 7:51 EDT) SSA Antibody 1.5 <20.0 Units 04/30/2022 12:[address] [facility] [...] A ND SEROLOGY ORDERABLES Performing Organization Address [facility] de Phone Number [facility] [address] [place] [address] documented in this encounter Visit Diagnoses Not on filedocumented in this encounter Care Teams Cosmetics Counter Manager Relationship Specialty Start Date End Date Ashley Chavez ARNP [address] [place] [address] PCP - General 07/11/10 documented as of this encounter
--- OUTSIDE RECORDS SUMMARY | 2024-05-16 15:35 | XMS_ITS | Encounter Summary ---
Author Organization [facility] Address [facility] [place] [address] Care Team Providers Care Molded Goods Operator Name Role Phone Magdalena Acosta MD Primary Care Provider [phone] Encounter Details Date Type Department Care Team (Late st Contact Info) Description 07/29/2023 11:00 AM EST Office [place] [address] Magdalena Peralta MD [facility] [address] [place] [address] Mixed connective tissue disease Social History Tobacco [...] 1:5120 speckled; VIC negative; Myositis panel with FOSTER PARENT ab 149.1 (positive); Anti U1RNP IgG 119; [...] Viramontes. Magdalena Peralta MD Rheumatology Fellow Pager: [phone] * Kia Viramontes DO - 07/29/2023 11:00 AM EST ATTENDING ADDENDUM The patient's history was reviewed, and I interviewed and examined the patient with Dr. Peralta I agree with her summary, findings, and plan. documented in this encounter Plan of Treatment Upcoming Encounters Date Type Department Care Team (Late st Contact Info) Description 05/29/2024 2:00 PM EDT Hospital Encounter [facility] [place] [address] Markel Borjas MD [facility] [address] HEMATOLOGY [place] [address] 05/29/2024 2:00 PM EDT - 05/29/2024 2:43 PM EDT Surgery [facility] [place] [phone] Markel Borjas MD [facility] HEMATOLOGY [place] [address] (OSC MSURG) BONE MARROW BIOPSY AND ASPIRATION; DIAGNOSTIC (WRVU 1.44) 06/23/2024 2:00 PM EST Office Visit Hematology [place] [phone] Markel Borjas MD [facility] [address] HEMATOLOGY [place] [address] 03/01/2025 4:15 PM EDT Office Visit Dermatology [place] [address] [place] [address] Marek Bonilla MD [address] [place] [address] Scheduled Procedures Name Priority Associated Diagnoses Date/Ti me (OSC MSURG) BONE MARROW BIOPSY AND ASPIRATION; DIAGNOSTIC (WRVU 1.44) Anemia, in pt with longstanding neutropenia 05/29/2024 2:00 PM EDT documented as of this encounter Results * [...] PFT FEV1/FVC Pre-BD Z-Score 0 COMPAS PFT OSD76-52 Actual Pre-BD 2.41 % COMPAS PFT UVI80-10 Predicted 1.8 % COMPAS PFT ZEK82-37 Pre-BD % of Predicted 134 % COMPAS PFT WTT76-38 Pre-BD Z-Score 0.81 COMPAS PFT DLCO Hb [...] IMPRESSION: Normal spirometry. No diffusion impairment. Kia Erika Viramontes DO PFT ORDERABLES COMPAS PFT documented in this encounter Visit Diagnoses Diagnosis Mixed connective tissue disease Other specified diffuse disease of connective tissue Mixed connective tissue disease Other specified diffuse disease of connective tissue documented in this encounter Care Teams Molded Goods Operator Relationship Specialty Start Date End Date Magdalena Acosta MD [address] [place] [address] PCP - General Family Medicine 02/05/23 documented as of this encounter
--- OUTSIDE RECORDS SUMMARY | 2024-05-16 15:35 | XMS_ITS | Encounter Summary ---
[place] [address] Care Team Providers Care Projection Welding Machine Operator Name Role Phone Magdalena Acosta MD Primary Care Provider [phone] Encounter Details Date Type Department Care Team (Latest Contact Info) Description 10/05/2023 10:52 AM EST - 10/05/2023 11:59 PM [facility] Hospital [place] [address] Mixed connective tissue disease Discharge Disposition: Home [...] topically 2 times daily as needed. 10/22/2022 acetaminophen (TYLENOL) 500 mg Tablet Take 2 [...] by mouth once as needed. Before dental ticagrelor (Brilinta) 90 mg tablet Take 90 mg by mouth 2 times daily. (Still taking for another 2-3 weeks 07/29/23) 11/16/2023 diclofenac (Voltaren) 1 % Gel Apply topically 4 times daily as needed. 150 g 3 07/29/2023 02/22/2024 furosemide (Lasix) 20 mg tablet Take 1 tablet by mouth daily. 90 tablet 3 05/23/2023 02/22/2024 metoproloL tartrate (Lopressor) 25 mg tablet Take 1 tablet by mouth 2 times daily. 60 tablet 3 05/22/2023 05/12/2024 cyanocobalamin, Vitamin B-12, (Vitamin B-12) 1,000 mcg tablet Take 500 mcg by mouth daily. 02/22/2024 documented as of this encounter Plan of Treatment Upcoming Encounters Date Type Department Care Team (Late st Contact Info) Description 05/29/2024 2:00 PM EDT Hospital Encounter Outpatient [place] [phone] Markel Borjas MD [facility] [address] [place] [address] 05/29/2024 2:00 PM EDT - 05/29/2024 2:43 PM EDT Surgery [facility] [place] [phone] Markel Borjas MD [facility] [address] [place] [address] (OSC MSURG) BONE MARROW BIOPSY AND ASPIRATION; DIAGNOSTIC (WRVU 1.44) 06/23/2024 2:00 PM EST Office Visit Hematology [place] [phone] Markel Borjas MD [facility] [address] [place] [address] 03/01/2025 4:15 PM EDT Office Visit Dermatology at [address] [place] [phone] Marek Bonilla MD [address], [place] A DERMATOLOGY [place], [place] [id number] Scheduled Procedures Name Priority Associated Diagnoses Date/Ti me (OSC MSURG) BONE MARROW BIOPSY AND ASPIRATION; DIAGNOSTIC (WRVU 1.44) Anemia, in pt with longstanding neutropenia 05/29/2024 2:00 PM EDT documented as of this encounter Procedures Procedure [...] PFT FEV1/FVC Pre-BD Z-Score 0 COMPAS PFT XTQ82-56 Actual Pre-BD 2.41 % COMPAS PFT UWX71-46 Predicted 1.8 % COMPAS PFT XXD30-25 Pre-BD % of Predicted 134 % COMPAS PFT FJZ11-05 Pre-BD Z-Score 0.81 COMPAS PFT DLCO Hb [...] tissue documented in this encounter Care Teams Projection Welding Machine Operator Relationship Specialty Start Date End Date Magdalena Acosta MD [address] [place] [address] PCP - General Family Medicine 02/05/23 documented as of this encounter
--- OUTSIDE RECORDS SUMMARY | 2024-05-16 15:35 | XMS_ITS | Encounter Summary ---
Author Organization [facility] Address [address] [place] [address] Care Team Providers Care Catholic Priest Name Role Phone Scott Ashley WILLIAM Primary Care Provider [phone] Encounter Details Date Type Department Care Team (Late st Contact Info) Description 05/12/2019 Results Only [facility] [phone] Nadira Gregorio MD [address] [place] [phone] Social History Tobacco Use Types Packs/Day [...] ? PURNIMA THACKER ? Accession #: ? [id number] ? : ? 1955 (Age: 63) ??F ? Collect Date: ? 05/12/2019 ? Location: ? [facility] ? Receive Date: ? 05/12/2019 ? Provider: NADIRA GREGORIO MD Copy to: [employer] ? Final Pathologic Diagnosis: COLON, CECUM, POLYP, [...] (ASCP) 05/12/2019 6:08 PM End of Report [facility] 05/12/2019 16:0 3 EDT 05/12/2019 16:03 EDT Nadira Gregorio MD PATHOLOGY ORDERABLES [facility] [address] [place] [address] documented in this encounter Visit Diagnoses Not on filedocumented in this encounter Care Teams Catholic Priest Relationship Specialty Start Date End Date Ashley Chavez ARNP [address] [place] [address] PCP - General 07/11/10 documented as of this encounter
--- OUTSIDE RECORDS SUMMARY | 2024-05-16 15:35 | XMS_ITS | Clinical Summary ---
Author Organization [facility] Address [facility] [place] [address] Care Team Providers Care Practice Consultant Name Role Phone Magdalena Acosta MD Primary Care Provider [phone] Allergies No known active allergies Medications Medication [...] mouth daily. 90 tablet 12 03/18/2023 Active spironolactone (Aldactone) 25 mg tabletIndications:H FrEF [...] Take 500 mcg by mouth daily. Active pantoprazole EC (Protonix) [address] tablet Take 40 mg by mouth daily. Active Active Problems Problem Noted Date Diagnosed Date Cardiogenic shock 05/12/2023 S/P TAVR (transcatheter aortic valve replacement ) 05/12/[address] enosis with low ejection fraction 05/08/2023 Mild coronary artery disease by [facility] 11/09/2022 Heart failure with reduced e [...] Encounters Date Type Department Care Team Description 05/12/2024 10:00 AM EDT Office Visit H[place] [address] Markel Borjas MD Chronic idiopathic neutropenia 05/12/2024 9:00 AM EDT Laboratory Appointment Lab at [facility] Hematology Oncology [address] [place] [address] S/P TAVR (transcatheter aortic valve replacement); Chronic idiopathic neutropenia 05/12/2024 Travel 05/10/2024 Travel 04/11/2024 Transcribe Orders eDH Incoming Referrals [phone] Consuelo Guerrero, DO Anemia, unspecified type 03/01/2024 Telephone Cardiology at [address] [phone] Cynthia Monsalve RN Pre Procedure Call (DAPT hold for EGD and colo?) 02/22/2024 4:15 PM EDT Office Visit Dermatology at [address] [phone] Marek Bonilla MD Seborrheic keratosis; Rosacea; Nevus [...] Sign Reading Time Taken Comments Blood Pressure 127/57 05/12/2024 9:49 AM EDT Pulse 68 05/12/2024 9:49 AM EDT Temperature 36.3 ??C (97.4 ??F) 05/12/2024 9 :49 AM EDT Respiratory Rate 18 05/12/2024 9:49 AM EDT Oxygen Saturation 98% 05/12/2024 9:4 9 AM EDT Inhaled Oxygen Concentration - - Weight 84.1 kg (185 lb 6.5 oz) 05/12/20 9:49 AM EDT with shoes Height 154.9 cm (5' 1) 05/12/2024 9:49 AM EDT Body Mass Index 35.03 05/12/2024 9:49 AM EDT Plan of Treatment Upcoming Encounters Date Type Department Care Team (Late st Contact Info) Description 05/29/2024 2:00 PM EDT Hospital Encounter Outpatient [place] [phone] Markel Borjas MD [facility] [place] [address] 05/29/2024 2:00 PM EDT - 05/29/2024 2:43 PM EDT Surgery Outpatient [place] [phone] Markel Borjas MD [facility] [place] [address] (OSC MSURG) BONE MARROW BIOPSY AND ASPIRATION; DIAGNOSTIC (WRVU 1.44) 06/23/2024 2:00 PM EST Office Visit [place] [phone] Markel Borjas MD [facility] [place] [address] 03/01/2025 4:15 PM EDT Office Visit Dermatology at [place] [address] [place] [address] Marek Bonilla MD [address], [address] DERMATOLOGY [place], [place] [id number] Scheduled Procedures Name Priority Associated Diagnoses Date/Ti me (OSC MSURG) BONE MARROW BIOPSY AND ASPIRATION; DIAGNOSTIC (WRVU 1.44) Anemia, in pt with longstanding neutropenia 05/29/2024 2:00 PM EDT Health Maintenance Due Date Last Done Comments [...] 05/18/2016 Diabetes Screening (HgbA1C o r Glucose) 05/12/2027 05/12/2024, 07/08/2023, 05/22/2023, Additional history exists Bone Density Scan 06/05/2036 06/05/2021 Medical Devices Implanted Type Area Cardiology Clinical Consultant Device Identifier Shelf Expiration Date Model / Serial / Lot Valve,Aor,Pericar d,Magna,25mm ([id number]) - [id number] Implanted:Qty: 1 on 09/21/2016 by Alirio Esparza MD at [facility] IMPLANTS N/A: Heart DO NOT USE [employer] - [id number] 06/02/2020 [id number] / / [id number] Cable,Blnt,Ss,38i n ([id number]) - [id number] Implanted:Qty: 4 on 09/21/2016 by Alirio Esparza MD at [facility] IMPLANTS N/A: Chest [employer] - [id number] 04/29/2021 [id number] / / [id number] Patch,Cav,Pericar d,2x5cm ([id number]) (Autoreq) - [id number] Implanted:Qty: 1 on 09/21/2016 by Alirio Esparza MD at [facility] IMPLANTS N/A: Heart DO NOT USE [employer] - [id number] 04/21/2018 [id number] / / [id number] Tavr-05/12/2023 Implanted:Qty: 1 on 05/12/2023 by Antelmo Sharma MD Other Heart [employer] - JAIME LI [id number] / [id number] / Description:[employer] NCES ABBY 3 ULTRA RESILIA TRANSCATHETER HEART VALVE Procedures Procedure Name Priority Date/Time Associated Diagnosis Comments RETICULOCYTE COUNT STAT 05/12/2024 8: 56 AM EDT Chronic idiopathic neutropenia COMPREHENSIVE METABOLIC PANEL STAT 05/12/2024 8:56 AM EDT Chronic idiopathic neutropenia CBC (WITH DIFF) STAT 05/12/2024 8:56 AM EDT Chronic idiopathic neutropenia LAB SCAN 02/24/2024 12:00 AM EDT DXA CENTRAL SPINE, HIP, AND/OR WHOLE BODY (GENERIC) Routine 06/05/2021 11:58 AM EDT MAMMO SCREENING CAD BILATERAL Routine 06/05/2021 11:42 AM EDT from Last 3 Months or Most Recently Relevant to Health Maintenance Results * Reticulocyte Count (05/12/2024 8:56 AM EDT) Reticulocyte % 1.20 0.70 - 2.50 % 05/12/2024 9:32 AM EDT [facility] Retic Abs # 0.0397 0.0200 - 0.1100 x10(6)/mcL 05/12/2024 9:32 AM EDT [facility] Immature Retic% 8.1 0.5 - 13.8 % 05/12/2024 9:32 AM EDT [facility] Reticulated Hgb 35.2 29.8 - 39.4 pg 05/12/2024 9:32 AM EDT [facility] Blood VENOUS BLOOD SPECIMEN / Unknown Venipuncture / Unknown 05/12/2024 8:56 AM EDT 05/12/2024 8:56 AM EDT Tova Russell CAFETERIA COOK HEMATOLOGY ORDERABL ES [facility] [place] [address] * (ABNORMAL) CBC (with Diff) (05/12/2024 8:56 AM EDT) White Blood Cell 3.47(L) 4.00 - 9.50 x10(3)/mc L 05/12/2024 9:32 AM EDT [facility] Red Blood Cell 3.31(L) 4.00 - 5.21 x10(6)/mc L 05/12/2024 9:32 AM EDT [facility] Hemoglobin 11.1(L) 11.7 - 15.5 g/dL 05/12/2024 9:32 AM EDT [facility] Hematocrit 33.2(L) 35.7 - 45.8 % 05/12/2024 9:32 AM EDT [facility] Mean Cell Volume 100.3(H) 82.6 - 94.4 fL 05/12/2024 9:32 AM EDT [facility] Mean Cell Hemoglobin 33.5(H) 27.1 - 32.0 pg 05/12/2024 9:32 AM EDT [facility] Mean Cell Hemoglobin Concentration 33.4 31.7 - 35.0 g/dL 05/12/2024 9:32 AM EDT [facility] Platelet 142(L) 145 - 357 x10(3)/mc L 05/12/2024 9:32 AM EDT [facility] Mean Platelet Volume 8.7 7.6 - 12.9 fL 05/12/2024 9:32 AM EDT [facility] RDW Standard Deviation 44.4 37.0 - 46.0 fL 05/12/2024 9:32 AM EDT [facility] RDW coefficient of variation 12.0 11.5 - 14.1 % 05/12/2024 9:32 AM EDT [facility] NRBC% auto 0.0 % 05/12/2024 9:32 AM [facility] NRBC Absolute <0.01 <0.01 x10(3)/mc L 05/12/2024 9:32 AM [facility] Neutrophil % 69.7 % 05/12/2024 9:32 AM [facility] Neutrophil Absolute (ANC) - Automated 2.42 1.70 - 6.10 x10(3)/mc L 05/12/2024 9:32 AM [facility] Lymph % 16.7 % 05/12/2024 9:32 AM [facility] Lymph Absolute 0.58(L) 0.90 - 3.20 x10(3)/mc L 05/12/2024 9:32 AM [facility] Monocyte % 12.1 % 05/12/2024 9:32 AM [facility] Monocyte Absolute 0.42 0.30 - 0.90 x10(3)/mc L 05/12/2024 9:32 AM [facility] Eos % 0.6 % 05/12/2024 9:32 AM [facility] Eos Absolute <0.04 0.00 - 0.40 x10(3)/mc L 05/12/2024 9:32 AM [facility] Basophil % 0.6 % 05/12/2024 9:32 AM [facility] Baso Absolute <0.04 0.00 - 0.10 x10(3)/mc L 05/12/2024 9:32 AM [facility] Immature Gran % 0.3 % 9:32 AM [facility] Immature Gran Absolute <0.04 0.00 - 0.04 x10(3)/mc L 05/12/2024 9:32 AM [facility] Blood VENOUS BLOOD SPECIMEN / Unknown Venipuncture / Unknown 05/12/2024 8:56 AM EDT 05/12/2024 8:56 AM EDT Tova Russell CAFETERIA COOK HEMATOLOGY ORDERABL ES [facility] [place] [address] * (ABNORMAL) Comprehensive metabolic panel Non-fasting (05/12/2024 8:56 AM EDT) Glucose 86 65 - 199 mg/dL 05/12/2024 11:36 AM EDT [facility] Comment:Glucose Concentratio n >=200 mg/dL plus symptoms is consistent with Diabetes Mellitus. Blood Urea Nitrogen 20(H) 8 - 18 mg/dL 05/12/2024 11:36 AM [facility] Creatinine 0.88 0.70 - 1.20 mg/dL 05/12/2024 11:36 AM [facility] Sodium 145 135 - 145 mMol/L 05/12[facility]2024 [facility] Potassium 4.6 3.5 - 5.0 mMol/L 05/12/2024 11:36 AM [facility] Chloride 109(H) 98 - 107 mMol/L 05/12/2024 11:36 AM [facility] Carbon Dioxide 21(L) 22 - 31 mMol/L 05/12/2024 11:36 AM [facility] Anion Gap 15 5 - 15 mMol/L 05/12/2024 11:36 AM [facility] Comment:Not Calculated. Calcium 9.9 8.5 - 10.5 mg/dL 05/12/2024 11:[facility] Protein, Total 7.3 6.1 - 8.0 g/dL 05/12/2024 11:36 AM [facility] Albumin 4.5 3.2 - 5.2 g/dL 05/12/2024 11:[facility] Aspartate Aminotransferase 24 <=30 unit/L 05/12/2024 11:36 AM EDT [facility] Alanine Aminotransferase 14 0 - 30 unit/L 05/12/2024 11:36 AM EDT [facility] Alkaline Phosphatase 98 35 - 105 unit/L 05/12/2024 11:36 AM EDT [facility] Bilirubin, Total 0.2 <=1.3 mg/dL 05/12/2024 11:36 AM EDT [facility] Est Glomerular Filtration Rate - Female 72 mL/min/1. 73 m?? 05/12/2024 11:36 AM EDT [facility] Comment: This patient's [...] urine creatinine clearance. Assignment of CKD stage 1 - 5 for patients with an eGFR near the transition point between stages may be based on clinical assessment of muscle mass and symptoms in addition to eGFR. Link: eGFR Calculator [employer] Fasting Status No 05/12/2024 11:36 AM EDT [facility] Blood VENOUS BLOOD SPECIMEN / Unknown Venipuncture / Unknown 05/12/2024 8:56 AM EDT 05/12/2024 8:56 AM EDT Tova Russell CAFETERIA COOK CHEMISTRY ORDERABLE S [facility] [place] [address] * Scan Doc: Lab (02/24/2024 12:00 AM EDT) Narrative 02/24/2024 12:00 AM EDT Ordered by an unspecified provider. Scanning Provider MEDIA MGR SCAN EXT O RDR/RSLT * DXA Central Spine, Hip, and/or Whole Body (Generic) (06/05/2021 11:58 AM EDT) PT CLASS O RAD ADMITDTTM RAD PT RAD INFO [id number]^E VERETT^DEBORAH ^E RAD EXAM DESC XDXAC^DEXA SCAN AXIAL^RIS [facility] Anatomical Region Laterality Modality C-spine, Hip N/A [...] who have questions please contact the health intensive care unit registered nurse that requested your imaging first. ? Electronically signed by: Rocael Villatoro MD, [facility] ([phone]), at 06/05/2021 12:00 PM Narrative 06/05/2021 12:00 [...] patients who have questions please contactthe health intensive care unit registered nurse that requested your imaging first. Electronically signed by: Rocael Villatoro MD, [facility]([phone]), at 06/05/2021 12:00 PM Deborah E Junaid CAFETERIA COOK IMG DEXA ORDERABLES * Mammo Screening Cad Bilateral (06/05/2021 11:42 AM EDT) PT CLASS O RAD ADMITDTTM DH RAD PT RAD INFO [id number]^EV ERETT^DEBORAH^E RAD EXAM DESC MADDSC^SCREEN MAMMO BL [...] who have questions please contact the health intensive care unit registered nurse that requested your imaging first. ? Electronically signed by: Rocael Villatoro MD, [facility] ([phone]), at 06/05/2021 1:27 PM Narrative 06/05/2021 1:27 [...] patients who have questions please contactthe health intensive care unit registered nurse that requested your imaging first. Electronically signed by: Rocael Villatoro MD, [facility]([phone]), at 06/05/2021 1:27 PM Deborah Quiroga APRN [...] capacity to make decision: Yes Care Teams Practice Consultant Relationship Specialty Start Date End Date Magdalena Acosta MD [address] [place] [address] PCP - General Family Medicine 02/05/23
--- OUTSIDE RECORDS SUMMARY | 2024-05-16 15:35 | XMS_ITS | Encounter Summary ---
Author Organization [facility] Address [address] [place] [address] Care Team Providers Care Tire Wrapper Name Role Phone Unavailable Primary Care Provider Unavailabl e Encounter Details Date Type Department Care Team (Late st Contact Info) Description 06/29/2007 Results Only [facility] [address] [place] [address] Sánchez Acevedo MD [address] [place] [address] Social History Tobacco Use Types Packs/Day Years [...] ? PURNIMA THACKER ? Accession #: ? [id number] ? : ? 1955 (Age: 51) ??F [...] covered by a smooth white serosa. ??Three textiles sales representative sections of the gallbladder are submitted in one cassette. ??(Sriram Elias/[facility] End of Report [facility] 06/29/2007 06/29/2007 21: 23 EST Sánchez Acevedo MD PATHOLOGY ORDERABLE S [facility] [address] [place] [address] documented in this encounter Visit Diagnoses Not on filedocumented in this encounter
--- OUTSIDE RECORDS SUMMARY | 2024-05-16 15:35 | XMS_ITS | Encounter Summary ---
Author Organization [facility] [place] [address] Care Team Providers Care Gm Video Name Role Phone Magdalena Acosta MD Primary Care Provider [phone] Encounter Details Date Type Department Care Team [...] PM EDT Hospital Encounter Outpatient [place] [address] Markel Borjas MD [facility] [address] HEMATOLOGY [place] [address] 05/29/2024 2:00 PM EDT - 05/29/2024 2:43 PM EDT Surgery Outpatient [place] [address] Markel Borjas MD [facility] [address] HEMATOLOGY [place] [address] (OSC MSURG) BONE MARROW BIOPSY AND ASPIRATION; DIAGNOSTIC (WRVU 1.44) 06/23/2024 2:00 PM EST Office Visit Hematology [place] [phone] Markel Borjas MD [facility] HEMATOLOGY [place] [address] 03/01/2025 4:15 PM EDT Office Visit Dermatology at [place] [address] [place] [address] Marek Bonilla MD [address], [address] DERMATOLOGY [place], [place] [phone] Scheduled Procedures Name Priority Associated Diagnoses Date/Ti me (OSC MSURG) BONE MARROW BIOPSY AND ASPIRATION; DIAGNOSTIC (WRVU 1.44) Anemia, in pt with longstanding neutropenia 05/29/2024 2:00 PM EDT documented as of this encounter Visit Diagnoses Not on filedocumented in this encounter Care Teams Gm Video Relationship Specialty Start Date End Date Magdalena Acosta MD [address] [place] [address] PCP - General Family Medicine 02/05/23 documented as of this encounter
--- OUTSIDE RECORDS SUMMARY | 2024-05-16 15:35 | XMS_ITS | Encounter Summary ---
Author Organization [facility] Address [address] [place] [address] Care Team Providers Care Motorized Squad Captain Name Role Phone Ashley Chavez Primary Care Provider [phone] Encounter Details Date Type Department Care Team (Latest Contact Info) Description 05/12/2019 13:18 EDT - 05/12/2019 23:59 EDT Hospital Encounter [address] [address] Unknown, Provider, Discharge Disposition: Home or Self [...] on filedocumented in this encounter Care Teams Motorized Squad Captain Relationship Specialty Start Date End Date Ashley Chavez ARNP [address] [place] [address] PCP - General 07/11/10 documented as of this encounter
--- OUTSIDE RECORDS SUMMARY | 2024-05-16 15:35 | XMS_ITS | Encounter Summary ---
Author Organization [facility] Address [address] [place] [address] Care Team Providers Care Operations General Agent Name Role Phone Unavailable Primary Care Provider Unavailabl e Encounter Details Date Type Department Care Team (Late st Contact Info) Description 03/24/2007 Results Only [facility] Non-Invasive Cardiology - [facility] [address] [place], [place] [address] Ashley Chavez ARNP [address] [place] [address] Social History Tobacco Use Types Packs/Day Years [...] ? PURNIMA THACKER ? Accession #: ? [id number] : ? 1955 (Age: 51) ??F ?Collect Date: ? 03/24/2007 Location: ? [facility] ? Receive Date: ? 03/28/2007 Provider: ?ASHLEY THOMAS Copy to: ? Specimen/Source: ?ThinPrep Pap Test, Endocervix, processed on [employer] ThinPrep Imaging System, with manual evaluation Last [...] Ashley THOMAS PATHOLOGY ORDERABLES [facility] [address] [place] [address] documented in this encounter Visit Diagnoses Not on filedocumented in this encounter
--- OUTSIDE RECORDS SUMMARY | 2024-05-16 15:35 | XMS_ITS | Encounter Summary ---
Author Organization [facility] [place] [address] Care Team Providers Care Layout Operator Name Role Phone Magdalena Acosta MD Primary Care Provider [phone] Encounter Details Date Type Department Care Team (Late st Contact Info) Description 12/02/2023 11:15 AM EDT Office [place] [address] Magdalena Peralta MD [facility] [place] [address] Mixed connective tissue disease Social History Tobacco [...] 1:5120 speckled; VIC negative; Myositis panel with SALES REPRESENTATIVE METALS ab 149.1 (positive); Anti U1RNP IgG 119; [...] list of questions that she sent via [facility] ahead of her visit, which we [...] exposure. She has an appointment with her Automotive Production Worker scheduled in January. (Dr Bonilla in [place]) ROS (positives in bold): Gen: no fevers, [...] but I encouraged her to contact her Automotive Production Worker to see if she could have her [...] Dr. Tanisha Peralta MD Rheumatology Fellow Pager: [phone] * Federico Yee MD - 12/02/2023 11:15 [...] PM EDT Hospital Encounter [place] [address] Markel Borjas MD [facility] DR [place] [address] 05/29/2024 2:00 PM EDT - 05/29/2024 2:43 PM EDT Surgery [place] [address] Markel Borjas MD [facility] DR [place] [address] (OSC MSURG) BONE MARROW BIOPSY AND ASPIRATION; DIAGNOSTIC (WRVU 1.44) 06/23/2024 2:00 PM EST Office Visit Hematology [place] [address] Markel Borjas MD [facility] [place] [address] 03/01/2025 4:15 PM EDT Office Visit Dermatology at [address] [phone] Marek Bonilla MD [address], [place] [address] Scheduled Orders Name Type Priority Associated Diagnoses Orde r Schedule EKG 12 Lead ECG Routine Mixed connective tissue disease Expected: 12/02/2023, Expires: 06/03/2024 Scheduled Procedures Name Priority Associated Diagnoses Date/Ti me (OSC MSURG) BONE MARROW BIOPSY AND ASPIRATION; DIAGNOSTIC (WRVU 1.44) Anemia, in pt with longstanding neutropenia 05/29/2024 2:00 PM EDT documented as of this encounter Visit Diagnoses Diagnosis Mixed connective tissue disease Other specified diffuse disease of connective tissue documented in this encounter Care Teams Layout Operator Relationship Specialty Start Date End Date Magdalena Acosta MD [address] [place] [address] PCP - General Family Medicine 02/05/23 documented as of this encounter
--- OUTSIDE RECORDS SUMMARY | 2024-05-16 15:35 | XMS_ITS | Encounter Summary ---
Author Organization [facility] [place] [address] Care Team Providers Care Scanning Clerk Name Role Phone Magdalena Acosta MD Primary Care Provider [phone] Reason for Referral * Diagnostic Test (Routine) - Closed Specialty Diagnoses / Procedures Referred By Contac t Referred To Contact Cardiology Diagnoses S/P TAVR (transcatheter aortic valve replacement) Procedures Echocardiogram Transthoracic Vinod Juárez PA [facility] [place] [address] [facility] [place] [address] Referral ID Status Reason Start Date Expiration Date V isits Requested Visits Authorized [id number] Closed Specialty Service Requested 05/22/2023 05/21/2024 1 1 Reason for Visit * Diagnostic Test (Routine) - Closed Specialty Diagnoses / Procedures Referred By Contac t Referred To Contact Cardiology Diagnoses S/P TAVR (transcatheter aortic valve replacement) Procedures Echocardiogram Transthoracic Vinod Juárez PA [facility] [place] [address] [facility] [place] [address] Referral ID Status Reason Start Date Expiration Date V isits Requested Visits Authorized [id number] Closed Specialty Service Requested 05/22/2023 05/21/2024 1 1 Encounter Details Date Type Department Care Team (Latest Contact Info) Description 07/08/2023 10:19 AM EST - 07/08/2023 11:59 PM EST Hospital Encounter Non-Invasive [place] [address] Alirio Esparza MD S/P TAVR (transcatheter aortic [...] by mouth once as needed. Before dental clopidogreL (Plavix) 75 mg tabletIndications:Aor tic valve [...] PM EDT Hospital Encounter [place]patient [place] [address] Markel Borjas MD [facility] [address] [place] [address] 05/29/2024 2:00 PM EDT - 05/29/2024 2:43 PM EDT Surgery [place]patient [place] [address] Markel Borjas MD [facility] [address] [place] [address] ([facility] MSURG) BONE MARROW BIOPSY AND ASPIRATION; DIAGNOSTIC (WRVU 1.44) 06/23/2024 2:00 PM EST Office Visit Hematology [place] [address] Markel Borjas MD [facility] [place] [address] 03/01/2025 4:15 PM EDT Office Visit Dermatology at [address] [phone] Marek Bonilla MD [address] [place] [address] Scheduled Procedures Name Priority Associated Diagnoses Date/Ti [...] EST Narrative 07/08/2023 12:26 PM EST [address] [place] [address] ? Echocardiogram Report Name: ONESIMO THACKER ?Study Date: 07/08/2023 10:31 AMBP: 118/60 mmHg ? Patient Location: 4A : 1955 ? Height: 155 cm ? Account: [id number] Age: 67 yrs ? Weight: 74 kg Gender: Female ?BSA: 1.7 m2 Ordering Physician: ALIRIO ESPARZA Referring Physician: VINOD JUÁREZ Performed By: Felicia Norris RDCS Reason For Study: S/P TAVR Exam Location: [facility]. Interpretation Summary Left ventricular systolic [...] no significant change (post-procedure). Procedure Limited - 72954. Doppler - 55780. Color Doppler - 88428. Satisfactory quality. This study is limited because [...] Note Lee Kincaid MD - 07/08/2023 [address] [place] [id number] Echocardiogram Report Name: ONESIMO THACKER Study Date: 0:31 AMBP: 118/60 mmHg Patient Location: : 1955 Height: 155 cm Account: [id number] Age: 67 yrs Weight: 74 kg Gender: Female BSA: 1.7 m2 Ordering Physician: ALIRIO ESPARZA Referring Physician: VINOD JUÁREZ Performed By: Felicia Norris RDCS Reason For Study: S/P TAVR Exam Location: [facility]. Interpretation Summary Left ventricular systolic [...] is nosignificant change (post-procedure). Procedure Limited - 67746. Doppler - 29880. Color Doppler - 68295. Satisfactoryquality. This study is limited because of [...] replacement) documented in this encounter Care Teams Scanning Clerk Relationship Specialty Start Date End Date Magdalena Acosta MD [address] [place] [address] PCP - General Family Medicine 02/05/23 documented as of this encounter
--- OUTSIDE RECORDS SUMMARY | 2024-05-16 15:35 | XMS_ITS | Encounter Summary ---
Author Organization [facility] [place] [address] Care Team Providers Care Nuclear Power Reactor Operator Name Role Phone Magdalena Acosta MD Primary Care Provider [phone] Reason for Referral * Diagnostic Test (Routine) - New Request Specialty Diagnoses / Procedures Referred By Contac t Referred To Contact Cardiology Diagnoses S/P TAVR (transcatheter aortic valve replacement) Procedures Echocardiogram Transthoracic Antelmo Sharma MD [facility] [place] [address] [facility] [place] [address] Referral ID Status Reason Start Date Expiration Date Visits Requested Visits Authorized [id number] New Request Specialty Service Requested 12/16/2023 12/15/2024 1 1 Encounter Details Date Type Department Care Team (Late st Contact Info) Description 12/16/2023 Orders Only Cardiology at [address] [address] Antelmo Sharma MD [facility] [address] S/P TAVR (transcatheter aortic valve [...] PM EDT Hospital Encounter [place] [address] Markel Borjas MD [facility] [address] [place] [address] 05/29/2024 2:00 PM EDT - 05/29/2024 2:43 PM EDT Surgery [place] [address] Markel Borjas MD [facility] [address] [place] [address] (OSC MSURG) BONE MARROW BIOPSY AND ASPIRATION; DIAGNOSTIC (WRVU 1.44) 06/23/2024 2:00 PM EST Office Visit Hematology [place] [address] Markel Borjas MD [facility] [place] [address] 03/01/2025 4:15 PM EDT Office Visit Dermatology at [address] [place] [address] Marek Bonilla MD [address] [facility], [place] [address] Scheduled Orders Name Type Priority Associated Diagnoses Order Schedule Echocardiogram Transthoracic Echocardiography Routine S/P TAVR (transcatheter aortic valve replacement) Expected: 12/16/2023 (Approximate), Expires: 06/17/2024 EKG 12 Lead ECG Routine S/P TAVR (transcatheter aortic valve replacement) Expected: 12/16/2023 (Approximate), Expires: 06/17/2024 Scheduled Procedures Name Priority Associated Diagnoses Date/Ti me ([facility] MS[facility]G) BONE MARROW BIOPSY AND ASPIRATION; DIAGNOSTIC (WRVU 1.44) Anemia, in pt with longstanding neutropenia 05/29/2024 2:00 PM EDT documented as of this encounter Visit Diagnoses Diagnosis S/P TAVR (transcatheter aortic valve replacement) documented in this encounter Care Teams Nuclear Power Reactor Operator Relationship Specialty Start Date End Date Magdalena Acosta MD [address] [place] [address] PCP - General Family Medicine 02/05/23 documented as of this encounter
--- OUTSIDE RECORDS SUMMARY | 2024-05-16 15:35 | XMS_ITS | Encounter Summary ---
Author Organization [facility] Address [address] [place] [address] Care Team Providers Care Belt Buckle Maker Name Role Phone Unavailable Primary Care Provider Unavailabl e Encounter Details Date Type Department Care Team (Late st Contact Info) Description 04/20/2005 Results Only [facility] [address] [place] [address] Ziggy Valiente MD [address] [place] [address] [id number] Social History Tobacco Use Types Packs/Day Years [...] ? PURNIMA THACKER ? Accession #: ? [id number] ? : ? 1955 (Age: 49) ??F [...] correlation with endoscopic appearance is recommended. (Dr. Chino)/[facility] Document reviewed and electronically signed [...] is entirely submitted in one cassette. ??(Arabella Santos)/[facility] End of Report PAUL ARELLANO 04/20/2005 04/21/2005 15: 04 EDT Ziggy Valiente MD PATHOLOGY ORDERABLES PAUL ARELLANO [address] [place] [address] documented in this encounter Visit Diagnoses Not on filedocumented in this encounter
--- OUTSIDE RECORDS SUMMARY | 2024-05-16 15:35 | XMS_ITS | Encounter Summary ---
Author Organization [facility] [place] [address] Care Team Providers Care Mini Shifter Name Role Phone Magdalena Acosta MD Primary [...] PM EDT Hospital Encounter Outpatient [place] [address] Markel Borjas MD [facility] [address] [place] [address] 05/29/2024 2:00 PM EDT - 05/29/2024 2:43 PM EDT Surgery Outpatient [place] [address] Markel Borjas MD [facility] [address] [place] [address] (OSC MSURG) BONE MARROW BIOPSY AND ASPIRATION; DIAGNOSTIC (WRVU 1.44) 06/23/2024 2:00 PM EST Office Visit Hematology [place] [address] Markel Borjas MD [facility] [place] [address] 03/01/2025 4:15 PM EDT Office Visit Dermatology at [place] [address] [place] [address] Marek Bonilla MD [address], [address] DERMATOLOGY [place], [place] [address] Scheduled Procedures Name Priority Associated Diagnoses Date/Ti me (OSC MSURG) BONE MARROW BIOPSY AND ASPIRATION; DIAGNOSTIC (WRVU 1.44) Anemia, in pt with longstanding neutropenia 05/29/2024 2:00 PM EDT documented as of this encounter Visit Diagnoses Not on filedocumented in this encounter Care Teams Mini Shifter Relationship Specialty Start Date End Date Magdalena Acosta MD [address] [place] [address] PCP - General Family Medicine 02/05/23 documented as of this encounter
--- OUTSIDE RECORDS SUMMARY | 2024-05-16 15:35 | XMS_ITS | Encounter Summary ---
Author Organization [facility] Address [address] [place] [address] Care Team Providers Care Epitaxial Reactor Operator Name Role Phone Unavailable Primary Care Provider Unavailabl e Encounter Details Date Type Department Care Team (Late st Contact Info) Description 07/08/2010 10:55 EST - 07/08/2010 10:56 EST Hospital Encounter [facility] - Other [address] [place] [address] Ashley Chavez, WILLIAM [address] [place] [address] Discharge Disposition: Home or Self Care Social [...]
--- OUTSIDE RECORDS SUMMARY | 2024-05-16 15:35 | XMS_ITS | Encounter Summary ---
[place] [address] Care Team Providers Care Medical Videographer Name Role Phone Magdalena Acosta MD Primary Care Provider [phone] Reason for Visit * Reason Onset Date Comments Pre Procedure Call 03/01/2024 DAPT hold for EGD and colo? Encounter Details Date Type Department Care Team (Late st Contact Info) Description 03/01/2024 Telephone Cardiology at [address] [phone] Cynthia Monsalve RN Pre Procedure Call (DAPT [...] safe. Jay Message above left with Yenifer (supervisor plastics), who would be leaving this note in patient's chart for providers to schedule patient. No further questions or needs at this time. This nurse stated, note will be placed regarding this call in our chart for patient. Kezia Whitney RN, BSN Ambulatory Cardiology Clinic, [facility] [phone] * Telephone Encounter - Cynthia Monsalve RN - 03/01/2024 2:09 PM EDT Nurse Veronica from [facility] called, requesting a hold on ASA and/or Plavix for the patient's anticipated EGD and colonoscopy. -Cynthia Monsalve RN documented in this encounter Plan of Treatment Upcoming Encounters Date Type Department Care Team (Late st Contact Info) Description 05/29/2024 2:00 PM EDT Hospital Encounter [place]patient [place] [address] Markel Borjas MD [facility] [place] [address] 05/29/2024 2:00 PM EDT - 05/29/2024 2:43 PM EDT Surgery [place]patient [place] [address] Markel Borjas MD [facility] [place] [address] (OSC MSURG) BONE MARROW BIOPSY AND ASPIRATION; DIAGNOSTIC (WRVU 1.44) 06/23/2024 2:00 PM EST Office Visit [place]ology [place] [address] Markel Borjas MD [facility] [address] [place] [address] 03/01/2025 4:15 PM EDT Office Visit Dermatology at [place] [address] [place] [address] Marek Bonilla MD [address], [place] [address] Scheduled Procedures Name Priority Associated Diagnoses Date/Ti me (OSC MSURG) BONE MARROW BIOPSY AND ASPIRATION; DIAGNOSTIC (WRVU 1.44) Anemia, in pt with longstanding neutropenia 05/29/2024 2:00 PM EDT documented as of this encounter Visit Diagnoses Not on filedocumented in this encounter Care Teams Medical Videographer Relationship Specialty Start Date End Date Magdalena Acosta MD [address] [place] [address] PCP - General Family Medicine 02/05/23 documented as of this encounter
--- OUTSIDE RECORDS SUMMARY | 2024-05-16 15:35 | XMS_ITS | Encounter Summary ---
Author Organization [facility] [place] [address] Care Team Providers Care Bar Hostess Name Role Phone Magdalena Acosta MD Primary Care Provider [phone] Encounter Details Date Type Department Care Team [...] PM EDT Hospital Encounter Outpatient [place] [address] Markel Borjas MD [facility] DR HEMATOLOGY [place] [address] 05/29/2024 2:00 PM EDT - 05/29/2024 2:43 PM EDT Surgery Outpatient [place] [address] Markel Borjas MD [facility] DR HEMATOLOGY [place] [address] (OSC MSURG) BONE MARROW BIOPSY AND ASPIRATION; DIAGNOSTIC (WRVU 1.44) 06/23/2024 2:00 PM EST Office Visit [place] [address] Markel Borjas MD [facility] HEMATOLOGY [place] [address] 03/01/2025 4:15 PM EDT Office Visit Dermatology at [place] [address] [place] [address] Marek Bonilla MD [address], [address] DERMATOLOGY [place], [place] [address] Scheduled Procedures Name Priority Associated Diagnoses Date/Ti me (OSC MSURG) BONE MARROW BIOPSY AND ASPIRATION; DIAGNOSTIC (WRVU 1.44) Anemia, in pt with longstanding neutropenia 05/29/2024 2:00 PM EDT documented as of this encounter Visit Diagnoses Not on filedocumented in this encounter Care Teams Bar Hostess Relationship Specialty Start Date End Date Magdalena Acosta MD [address] [place] [address] PCP - General Family Medicine 02/05/23 documented as of this encounter
--- OUTSIDE RECORDS SUMMARY | 2024-05-16 15:35 | XMS_ITS | Encounter Summary ---
Author Organization [facility] [address] Care Team Providers Care Medicare Insurance Specialist Name Role Phone Magdalena Acosta MD Primary Care Provider [phone] Encounter Details Date Type Department Care Team [...] PM EDT Hospital Encounter Outpatient [place] [address] Markel Borjas MD [facility] DR [place] [address] 05/29/2024 2:00 PM EDT - 05/29/2024 2:43 PM EDT Surgery Outpatient [place] [address] Markel Borjas MD [facility] DR [place] [address] (OSC MSURG) BONE MARROW BIOPSY AND ASPIRATION; DIAGNOSTIC (WRVU 1.44) 06/23/2024 2:00 PM EST Office Visit Hematology [place] [address] Markel Borjas MD [facility] [place] [address] 03/01/2025 4:15 PM EDT Office Visit Dermatology at [place] [address] [place] [address] Marek Bonilla MD [address], [address] DERMATOLOGY [place], [place] [phone] Scheduled Procedures Name Priority Associated Diagnoses Date/Ti me (OSC MSURG) BONE MARROW BIOPSY AND ASPIRATION; DIAGNOSTIC (WRVU 1.44) Anemia, in pt with longstanding neutropenia 05/29/2024 2:00 PM EDT documented as of this encounter Visit Diagnoses Not on filedocumented in this encounter Care Teams Medicare Insurance Specialist Relationship Specialty Start Date End Date Magdalena Acosta MD [address] [place] [address] PCP - General Family Medicine 02/05/23 documented as of this encounter
--- OUTSIDE RECORDS SUMMARY | 2024-05-16 15:35 | XMS_ITS | Encounter Summary ---
Author Organization [facility] [place] [address] Care Team Providers Care Industrial Gas Fitter Helper Name Role Phone Magdalena Acosta MD Primary Care Provider [phone] Encounter Details Date Type Department Care Team [...] PM EDT Hospital Encounter Outpatient [place] [address] Markel Borjas MD [facility] [address] [place] [address] 05/29/2024 2:00 PM EDT - 05/29/2024 2:43 PM EDT Surgery Outpatient [place] [address] Markel Borjas MD [facility] [address] [place] [address] (OSC MSURG) BONE MARROW BIOPSY AND ASPIRATION; DIAGNOSTIC (WRVU 1.44) 06/23/2024 2:00 PM EST Office Visit Hematology [place] [address] Markel Borjas MD [facility] [place] [address] 03/01/2025 4:15 PM EDT Office Visit Dermatology at [place] [address] [place] [address] Marek Bonilla MD [address], [address] DERMATOLOGY [place], [place] [address] Scheduled Procedures Name Priority Associated Diagnoses Date/Ti me (OSC MSURG) BONE MARROW BIOPSY AND ASPIRATION; DIAGNOSTIC (WRVU 1.44) Anemia, in pt with longstanding neutropenia 05/29/2024 2:00 PM EDT documented as of this encounter Visit Diagnoses Not on filedocumented in this encounter Care Teams Industrial Gas Fitter Helper Relationship Specialty Start Date End Date Magdalena Acosta MD [address] [place] [address] PCP - General Family Medicine 02/05/23 documented as of this encounter
--- OUTSIDE RECORDS SUMMARY | 2024-05-16 15:35 | XMS_ITS | Encounter Summary ---
Author Organization [facility] [place] [address] Care Team Providers Care Speeder Tender Name Role Phone Magdalena Acosta MD Primary Care Provider [phone] Encounter Details Date Type Department Care Team [...] PM EDT Hospital Encounter [place]patient [place] [address] [facility] DR [place]ATOLOG[place] [address] 05/29/2024 2:00 PM EDT - 05/29/2024 2:43 PM EDT Surgery [place] [address] [facility] [address] [place] [address] (OSC MSURG) BONE MARROW BIOPSY AND ASPIRATION; DIAGNOSTIC (WRVU 1.44) 06/23/2024 2:00 PM EST Office Visit Hematology [place] [address] [facility] [place] [address] 03/01/2025 4:15 PM EDT Office Visit Dermatology at [place] [address] [place] [address] Marek Bonilla MD [address], [address] A DERMATOLOGY [place], [place] [address] Scheduled Procedures Name Priority Associated Diagnoses Date/Ti me (OSC MSURG) BONE MARROW BIOPSY AND ASPIRATION; DIAGNOSTIC (WRVU 1.44) Anemia, in pt with longstanding neutropenia 05/29/2024 2:00 PM EDT documented as of this encounter Visit Diagnoses Not on filedocumented in this encounter Care Teams Speeder Tender Relationship Specialty Start Date End Date Magdalena Acosta MD [address] [place] [address] PCP - General Family Medicine 02/05/23 documented as of this encounter
--- OUTSIDE RECORDS SUMMARY | 2024-05-16 15:35 | XMS_ITS | Encounter Summary ---
Author Organization [facility] Address [address] [place] [address] Care Team Providers Care Supply Person Name Role Phone Unavailable Primary Care Provider Unavailabl e Encounter Details Date Type Department Care Team (Late st Contact Info) Description 03/24/2007 11:06 EDT - 03/24/2007 11:59 EDT Hospital Encounter [facility] - Other [address] [place] [address] Ashley Chavez ARNP [address] [place] [address] Discharge Disposition: Home or Self Care Social [...]
--- OUTSIDE RECORDS SUMMARY | 2024-05-16 15:35 | XMS_ITS | Encounter Summary ---
Author Organization [facility] [place] [address] Care Team Providers Care Land Sales Agent Name Role Phone Magdalena Acosta MD Primary Care Provider [phone] Encounter Details Date Type Department Care Team [...] PM EDT Hospital Encounter [place]patient [place] [address] Markel Borjas MD [facility] [address] [place] [address] 05/29/2024 2:00 PM EDT - 05/29/2024 2:43 PM EDT Surgery [place] [address] Markel Borjas MD [facility] [address] [place] [address] (OSC MSURG) BONE MARROW BIOPSY AND ASPIRATION; DIAGNOSTIC (WRVU 1.44) 06/23/2024 2:00 PM EST Office Visit Hematology [place] [address] Markel Borjas MD [facility] [place] [address] 03/01/2025 4:15 PM EDT Office Visit Dermatology at [place] [address] [place] [address] Marek Bonilla MD [address], [address] DERMATOLOGY [place], [place] [address] Scheduled Procedures Name Priority Associated Diagnoses Date/Ti me (OSC MSURG) BONE MARROW BIOPSY AND ASPIRATION; DIAGNOSTIC (WRVU 1.44) Anemia, in pt with longstanding neutropenia 05/29/2024 2:00 PM EDT documented as of this encounter Visit Diagnoses Not on filedocumented in this encounter Care Teams Land Sales Agent Relationship Specialty Start Date End Date Magdalena Acosta MD [address] [place] [address] PCP - General Family Medicine 02/05/23 documented as of this encounter
--- OUTSIDE RECORDS SUMMARY | 2024-05-16 15:35 | XMS_ITS | Encounter Summary ---
[place] [address] Care Team Providers Care Automotive Service Management Teacher Name Role Phone Magdalena Acosta MD Primary Care Provider Reason for Referral * Consultation (Routine) - Closed Specialty Diagnoses / Procedures Referred By Contac t Referred To Contact Hematology and Oncology Diagnoses Anemia, unspecified type Consuelo Guerrero DO [address] [place] [address] [address] [place] [address] [facility] [address] [place] [address] Referral ID Status Reason Start Date Expiration Date V isits Requested Visits Authorized [id number] Closed Consult, Test & Treat 04/11/2024 04/11/2025 1 1 Encounter Details Date Type Department Care Team (Late st Contact Info) Description 04/11/2024 Transcribe Orders eDH Incoming Referrals [phone] Consuelo Guerrero DO [address] [place] [address] [address] [place] [address] Anemia, unspecified type Social History [...] PM EDT Hospital Encounter [place] [address] Markel Borjas MD [facility] DR [place] [address] 05/29/2024 2:00 PM EDT - 05/29/2024 2:43 PM EDT Surgery [place] [address] Markel Borjas MD [facility] DR [place] [address] (OSC MSURG) BONE MARROW BIOPSY AND ASPIRATION; DIAGNOSTIC (WRVU 1.44) 06/23/2024 2:00 PM EST Office Visit Hematology [place] [address] Markel Borjas MD [facility] DR [place] [address] 03/01/2025 4:15 PM EDT Office Visit Dermatology at [place] [address] [place] [address] Marek Bonilla MD [address] [place] [address] Scheduled Procedures Name Priority Associated Diagnoses Date/Ti me (OSC MSURG) BONE MARROW BIOPSY AND ASPIRATION; DIAGNOSTIC (WRVU 1.44) Anemia, in pt with longstanding neutropenia 05/29/2024 2:00 PM EDT Scheduled Referrals Name Type Priority Associated Diagnoses Orde r Schedule Referral to Hematology and Oncology Outpatient Referral Routine Anemia, unspecified type Ordered: 04/11/2024 documented as of this encounter Visit Diagnoses Diagnosis Anemia, unspecified type documented in this encounter Care Teams Automotive Service Management Teacher Relationship Specialty Start Date End Date Magdalena Acosta MD [address] [place] [address] PCP - General Family Medicine 02/05/23 documented as of this encounter
--- OUTSIDE RECORDS SUMMARY | 2024-05-16 15:35 | XMS_ITS | Encounter Summary ---
Author Organization [facility] [place] [address] Care Team Providers Care Link Trainer Maintenance Worker Name Role Phone Magdalena Acosta MD Primary Care Provider [phone] Encounter Details Date Type Department Care Team (Late st Contact Info) Description 05/27/2023 Refill Cardiology at [address] [phone] Vero Marrero, RN Social History Tobacco Use [...] PM EDT TC to Nurse Sosa at [facility] to relay response from Jay Maza copied below. Nurse Sosa states they will send a new prescription to patient's preferred pharmacy and call the patient with the medication information. No print prescription sent to update med list. May 27, 2023 Jay Maza PA to Ri 05/27/23 2:44 PM OK to change ticagrelor to Clopidogrel. Now, she should be taking ticagrelor 90mg BID. When she switches, she can take ticagrelor, then the next morning, stop ticagrelor, instead take clopidogrel 300mg once, then after that 75mg once daily. Jay Marrero specialty development consultant Clinic at [facility] [phone] * Telephone Encounter - Vero Marrero RN - 05/27/2023 1:46 PM EDT VM received from triage nurse Sosa at [facility] stating patient was seen today by [...] possible. Vero Marrero RN Cardiology Clinic at [facility] [phone] documented in this encounter Plan of Treatment Upcoming Encounters Date Type Department Care Team (Late st Contact Info) Description 05/29/2024 2:00 PM EDT Hospital Encounter [place] [address] Markel Borjas MD [facility] HEMATOLOGY [place] [address] 05/29/2024 2:00 PM EDT - 05/29/2024 2:43 PM EDT Surgery [place] [address] Markel Borjas MD [facility] HEMATOLOGY AND ONCOLOGY [place] [id number] (OSC MSURG) BONE MARROW BIOPSY AND ASPIRATION; DIAGNOSTIC (WRVU 1.44) 06/23/2024 2:00 PM EST Office Visit [place] [address] Markel Borjas MD [facility] DR [place] [address] 03/01/2025 4:15 PM EDT Office Visit Dermatology at [place] [address] [facility] [place] [address] Marek Bonilla MD [address], [place] [address] Scheduled Procedures Name Priority Associated Diagnoses Date/Ti me (OSC MSURG) BONE MARROW BIOPSY AND ASPIRATION; DIAGNOSTIC (WRVU 1.44) Anemia, in pt with longstanding neutropenia 05/29/2024 2:00 PM EDT documented as of this encounter Visit Diagnoses Diagnosis Aortic valve stenosis, etiology of cardiac valve disease unspecified documented in this encounter Care Teams Link Trainer Maintenance Worker Relationship Specialty Start Date End Date Magdalena Acosta MD [address] [place] [address] PCP - General Family Medicine 02/05/23 documented as of this encounter
--- OUTSIDE RECORDS SUMMARY | 2024-05-16 15:35 | XMS_ITS | Encounter Summary ---
[place] [address] Care Team Providers Care Supervisor Volunteer Services Name Role Phone Magdalena Acosta MD Primary Care Provider [phone] Reason for Visit * Reason Comments Annual Exam Encounter Details Date Type Department Care Team (Late st Contact Info) Description 02/22/2024 4:15 PM EDT Office Visit Dermatology at [address] [phone] Marek Bonilla MD [address] [facility] A DERMATOLOGY [place], [place] [phone] Seborrheic keratosis; Rosacea; Nevus Social History Tobacco [...] cutaneous and ocular 3. Previously told by events intern that she had corneal tears from [...] PM EDT Hospital Encounter Outpatient [place] [address] Markel Borjas MD [facility] [address] [place] [address] 05/29/2024 2:00 PM EDT - 05/29/2024 2:43 PM EDT Surgery Outpatient [place] [address] Markel Borjas MD [facility] [address] [place] [address] (OSC MSURG) BONE MARROW BIOPSY AND ASPIRATION; DIAGNOSTIC (WRVU 1.44) 06/23/2024 2:00 PM EST Office Visit Hematology [place] [address] Markel Borjas MD [facility] DR [place] [address] 03/01/2025 4:15 PM EDT Office Visit Dermatology at [place] [address] [place] [phone] Marek Bonilla MD [address] [facility] [address] [place] [address] Scheduled Procedures Name Priority Associated Diagnoses Date/Ti me (OSC MSURG) BONE MARROW BIOPSY AND ASPIRATION; DIAGNOSTIC (WRVU 1.44) Anemia, in pt with longstanding neutropenia 05/29/2024 2:00 PM EDT documented as of this encounter Visit Diagnoses Diagnosis Seborrheic keratosis Other seborrheic keratosis Rosacea Nevus Benign neoplasm of skin, site unspecified documented in this encounter Care Teams Supervisor Volunteer Services Relationship Specialty Start Date End Date Magdalena Acosta MD [address] [place] [id number] PCP - General Family Medicine 02/05/23 documented as of this encounter
--- OUTSIDE RECORDS SUMMARY | 2024-05-16 15:35 | XMS_ITS | Encounter Summary ---
Author Organization Count Includes [facility] [address] Care Team Providers Care Mercury Cracking Tester Name Role Phone Magdalena Acosta MD Primary Care Provider [phone] Reason for Visit * Reason Comments Follow-up * Consultation (Routine) - Closed Specialty Diagnoses / Procedures Referred By Contac t Referred To Contact Hematology and Oncology Diagnoses Anemia, unspecified type Consuelo Guerrero, DO [address] [place] [address] [place] [address] [facility] [address] [place] [address] Referral ID Status Reason Start Date Expiration Date V isits Requested Visits Authorized [id number] Closed Consult, Test & Treat 04/11/2024 04/11/2025 1 1 Encounter Details Date Type Department Care Team (Late st Contact Info) Description 05/12/2024 10:00 AM EDT Office Visit [place] [address] Markel Borjas MD [facility] [address] HEMATOLOGY [place] [address] Chronic idiopathic neutropenia Social History Tobacco Use Types Packs/Day [...] Mass Index 35.03 05/12/2024 9:49 AM EDT documented in this encounter Progress Notes * Markel Borjas MD - 05/12/2024 10:00 AM EDT H[facility]ology [facility] [...] gradual decline from her baseline functional status. She specifically denies any dramatic change from [...] the past 2-3 years, as outlined below Pertinent Medical History Mixed connective tissue disease- 2022- On plaquenil Work Up Labs Mar 2013: WBC 2.27 AMC 1.09 ALC 0.86 08/04/16- ANC= 1.17 (after test dose of neulasta) 09/24/16- ANC= 7.79 (POD 2 after aortic valve repair and 8 days after neulasta) 11/2016- ANC= 0.5 (after stopping ASHLEIGH-I for 3 months) [address] c/a/p (06/2016)- no lymphadenopathy or masses- essentially normal Pathology 2015- DIAGNOSIS BONE MARROW (PERIPHERAL SMEAR, ASPIRATE SMEAR, TOUCH PREP, CLOT SECTION, CORE BIOPSY); [OSR# [id number], COLLECTED 06/23/2016, 19 SLIDES]: 1. Normocellular marrow (30-40% cellularity) with complete multilineage hematopoiesis 2. Few benign lymphoid aggregates are seen, but no abnormal l ymphoproliferation or significant features of dysplasia are appreciated; supported by immunophenotyping studies 3. Iron stores are adequate per iron stains 4. Peripheral blood with leukopenia 5. Per report from the referring institution; Flow cytometry studies on the marrow aspirate did not show imm unophenotypic evidence for involvement by a clonal lymphoproliferative or myeloproliferative disorder (OSR# [id number]) Chromosome analysis on the marrow aspirate revealed a normal female karyotype; 46,XX PB Flow- DIAGNOSIS 1. No increased or abnormal immunophenotype T/NK/LGL or monoclonal B-cell populations identified. 2. No increased blast population present (see Discussion). INTERIM HISTORY Purnima has not been well. Last year she was dx'ed with mixed connective tissue disorder. She also has diffuse aches and pains, which have even restricted her ability to play competitive scrabble. No infections. Low energy. Past Medical/Surgical History: 1. Leukopenia -element of neutropenia, as noted above 2. Aortic Stenosis -severe -AVR surgery 3. Hypercholesterolemia 4. 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 pantoprazole EC (Protonix) [address] tablet Take 40 mg by mouth daily. Yes losartan (Cozaar) 25 mg tablet Take 25 mg by mouth daily. Yes metoprolol succinate XL (Toprol-XL) 50 mg ER 24 hr tablet Take 50 mg by mouth daily. Yes cyanocobalamin, vitamin B-12, (Vitamin B-12) 500 mcg tablet Take 500 mcg by mouth daily. Yes spironolactone (Aldactone) 25 mg tablet Take 0.5 tablets by mouth daily. Yes clopidogreL (Plavix) 75 mg tablet Take 1 tablet by mouth daily. she can take ticagrelor, then the next morning, stop ticagrelor, instead take clopidogrel 300mg once, then after that 75mg once daily. Patient taking differently: Take 75 mg by mouth daily. Yes hydrOXYchloroQUINE (Plaquenil) 200 mg tablet Take 1 tablet by mouth daily. Yes nystatin (MYCOSTATIN) 100,000 unit/gram Powder Apply topically 2 times daily as needed. Yes acetaminophen (TYLENOL) 500 mg Tablet Take 2 tablets by mouth every 6 hours as needed for Pain (Please take up to 1,000 mg every 6 hours when experiencing pain -05/11.). Yes multivitamin (THERAGRAN) Tablet Take 1 tablet by mouth daily. Yes atorvastatin (LIPITOR) 10 mg Tablet Take 10 mg by mouth daily. Yes aspirin 81 mg EC tablet Take 81 mg by mouth daily. Yes OneTouch Verio test strips Strip USE DAILY OneTouch Delica Plus Lancet 33 gauge Misc USE DAILY amoxicillin (AMOXIL) 500 mg Tablet Take 2,000 mg by mouth once as needed. Before dental Allergies: Reviewed in eD-H Review of Systems Besides what is mentioned in HPI, all other systems are negative Physical Exam: Patient Vitals for the past 24 hrs: Temp Pulse Resp BP SpO2 05/12/24 0949 36.3 ??C (97.4 ??F) 68 18 127/57 98 % Gen: Well-appearing woman, conversant and in no acute distress. HEENT: Sclerae anicteric; no oropharyngeal lesions. Neck: Supple; no palpable thyromegaly. Lungs: Clear to auscultation. Cardiovascular: Normal rate and regular rhythm; grade III/ HS murmur. Abd: Benign, without palpable hepatosplenomegaly. Lymphatics: No palpable lymphadenopathy. Skin: No jaundice, rash, ecchymoses or petechiae. Neuro: Grossly intact. Extremities: No edema. Labs: Hgb= 11.7 Czbf=485 ANC= 2.5 Assessment: 60 year-old woman found to have severe neutropenia during preop evaluation. BM in 2015 was relatively unrevealing. She was found to respond to Neulasta for procedure. She did not have anyinfectious complications. However, in 2023, she presents again with anemia and thrombocytopenia (interestingly, her ANC was normal). Of note, she started Plaquenil for Rheum disease in 2022. Purnima's heme history is complicated enough that I think we should pursue BM. Although her anemia could well be explained by her mixed- connective tissue disorder, her past hx of idiopathic neutropenia increases her Heme complexity, and pushes me to investigate any CBC changesfurther. Will follow up after BM. Markel Borjas MD documented in this encounter Plan of Treatment Upcoming Encounters Date Type Department Care Team (Late st Contact Info) Description 05/29/2024 2:00 PM EDT Hospital Encounter [place] [address] Markel Borjas MD [facility] [address] HEMATOLOGY [place] [address] 05/29/2024 2:00 PM EDT - 05/29/2024 2:43 PM EDT Surgery [place] [address] Markel Borjas MD [facility] [address] HEMATOLOGY [place] [address] (OSC MSURG) BONE MARROW BIOPSY AND ASPIRATION; DIAGNOSTIC (WRVU 1.44) 06/23/2024 2:00 PM EST Office Visit [place] [phone] Markel Borjas MD [facility] [address] HEMATOLOGY [place] [address] 03/01/2025 4:15 PM EDT Office Visit Dermatology at [place] [address] [facility] [place] [phone] Marek Bonilla MD [address] [place] [address] Scheduled Orders Name Type Priority Associated Diagnoses Orde r Schedule SURGICAL CASE REQUEST: (OSC MSURG) BONE MARROW BIOPSY AND ASPIRATION; DIAGNOSTIC (WRVU 1.44) Procedures Routine One Time for 1 Occurrences starting 05/12/2024 until 05/12/2024 Scheduled Procedures Name Priority Associated Diagnoses Date/Ti me (OSC MSURG) BONE MARROW BIOPSY AND ASPIRATION; DIAGNOSTIC (WRVU 1.44) Anemia, in pt with longstanding neutropenia 05/29/2024 2:00 PM EDT documented as of this encounter Results * Reticulocyte Count (05/12/2024 8:56 AM [...] 29.8 - 39.4 pg 05/12/2024 9:32 AM T [facility] Blood VENOUS BLOOD SPECIMEN / Unknown Venipuncture / Unknown 05/12/2024 8:56 AM EDT 05/12/2024 8:56 AM EDT Tova Russell ADDRESSOGRAPH OPERATOR HEMATOLOGY ORDERABL ES [facility] [place] [address] * (ABNORMAL) Comprehensive metabolic panel Non-fasting (05/12/2024 8:56 AM EDT) Glucose 86 65 - 199 mg/dL 05/12/2024 11:36 [facility] Comment:Glucose Concentratio n >=200 mg/dL plus symptoms is consistent with Diabetes Mellitus. Blood Urea Nitrogen 20(H) 8 - 18 mg/dL 05/12/2024 11:36 AM [facility] Creatinine 0.88 0.70 - 1.20 mg/dL 05/12/2024 11:36 AM [facility] Sodium 145 135 - 145 mMol/L 05/12/2024 11:36 AM [facility] Potassium 4.6 3.5 - 5.0 mMol/L 05/12/2024 11:36 AM [facility] Chloride 109(H) 98 - 107 mMol/L 05/12/2024 11:36 AM [facility] Carbon Dioxide 21(L) 22 - 31 mMol/L 05/12/2024 11:36 AM [facility] Anion Gap 15 5 - 15 mMol/L 05/12/2024 11:36 AM [facility] Comment:Not Calculated. Calcium 9.9 8.5 - 10.5 mg/dL 05/12/2024 11:36 [facility] Protein, Total 7.3 6.1 - 8.0 g/dL 05/12/2024 11:36 AM [facility] Albumin 4.5 3.2 - 5.2 g/dL 05/12/2024 11:36 AM [facility] Aspartate Aminotransferase 24 <=30 unit/L 05/12/2024 11:36 AM [facility] Alanine Aminotransferase 14 0 - 30 unit/L 05/12/2024 11:36 AM [facility] Alkaline Phosphatase 98 35 - 105 unit/L 05/12/2024 11:36 AM [facility] Bilirubin, Total 0.2 <=1.3 mg/dL 05/12/2024 11:36 AM [facility] Est Glomerular Filtration Rate - Female 72 mL/min/1. 73 m?? 05/12/2024 11:36 AM [facility] Comment: This patient's estimated GFR was [...] EDT 05/12/2024 8:56 AM EDT Tova Russell ADDRESSOGRAPH OPERATOR CHEMISTRY ORDERABLE S [facility] [place] [address] * (ABNORMAL) CBC (with Diff) (05/12/2024 8:56 AM EDT) White Blood Cell 3.47(L) 4.00 - 9.50 x10(3)/mc L 05/12/2024 9:32 AM [facility] Red Blood Cell 3.31(L) 4.00 - 5.21 x10(6)/mc L 05/12/2024 9:32 AM [facility] Hemoglobin 11.1(L) 11.7 - 15.5 g/dL 05/12/2024 9:32 AM [facility] Hematocrit 33.2(L) 35.7 - 45.8 % 05/12/2024 9:32 AM [facility] Mean Cell Volume 100.3(H) 82.6 - 94.4 fL 05/12/2024 9:32 AM [facility] Mean Cell Hemoglobin 33.5(H) 27.1 - 32.0 pg 05/12/2024 9:32 AM [facility] Mean Cell Hemoglobin Concentration 33.4 31.7 - 35.0 g/dL 05/12/2024 9:32 AM [facility] Platelet 142(L) 145 - 357 x10(3)/mc L 05/12/2024 9:32 AM [facility] Mean Platelet Volume 8.7 7.6 - 12.9 fL 05/12/2024 9:32 AM [facility] RDW Standard Deviation 44.4 37.0 - 46.0 fL 05/12/2024 9:32 AM [facility] RDW coefficient of variation 12.0 11.5 - 14.1 % 05/12/2024 9:32 AM [facility] NRBC% auto 0.0 % 05/12/2024 9:32 AM [facility] NRBC Absolute <0.01 <0.01 x10(3)/mc L 05/12/2024 9:32 AM [facility] Neutrophil % 69.7 % 05/12/2024 9:32 AM [facility] Neutrophil Absolute (ANC) - Automated 2.42 1.70 - 6.10 x10(3)/mc L 05/12/2024 9:32 AM EDT [facility] Lymph % 16.7 % 05/12/2024 9:32 AM EDT [facility] Lymph Absolute 0.58(L) 0.90 - 3.20 x10(3)/mc L 05/12/2024 9:32 AM EDT [facility] Monocyte % 12.1 % 05/12/2024 9:32 AM EDT [facility] Monocyte Absolute 0.42 0.30 - 0.90 x10(3)/mc L 05/12/2024 9:32 AM EDT [facility] Eos % 0.6 % 05/12/2024 9:32 AM EDT [facility] Eos Absolute <0.04 0.00 - 0.40 x10(3)/mc L 05/12/2024 9:32 AM EDT [facility] Basophil % 0.6 % 05/12/2024 9:32 AM EDT [facility] Baso Absolute <0.04 0.00 - 0.10 x10(3)/mc L 05/12/2024 9:32 AM EDT [facility] Immature Gran % 0.3 % 9:32 AM EDT [facility] Immature Gran Absolute <0.04 0.00 - 0.04 x10(3)/mc L 05/12/2024 9:32 AM EDT [facility] Blood VENOUS BLOOD SPECIMEN / Unknown Venipuncture / Unknown 05/12/2024 8:56 AM EDT 05/12/2024 8:56 AM EDT Tova Russell ADDRESSOGRAPH OPERATOR HEMATOLOGY ORDERABL ES [facility] [place] [address] documented in this encounter Visit Diagnoses Diagnosis Chronic idiopathic neutropenia Other neutropenia documented in this encounter Care Teams Mercury Cracking Tester Relationship Specialty Start Date End Date Magdalena Acosta MD [address] [place] [address] PCP - General Family Medicine 02/05/23 documented as of this encounter
--- OUTSIDE RECORDS SUMMARY | 2024-05-16 15:35 | XMS_ITS | Encounter Summary ---
Author Organization [facility] Address [address] [place] [address] Care Team Providers Care Company Accountant Name Role Phone Scott, Ashley WILLIAM Primary Care Provider [phone] Encounter Details Date Type Department Care Team (Late st Contact Info) Description 12/23/2016 Results Only [facility] [phone] Deborah Quiroga, CARE MANAGEMENT SPECIALIST [address] [place] [phone] Social History Tobacco Use Types Packs/Day Years [...] ? PURNIMA THACKER ? Accession #: ? [id number] ? : ? 1955 (Age: 61) ??F ?Collect Date: ? 12/23/2016 ? Location: ? [facility] ? Receive Date: ? 12/25/2016 ? Provider: DEBORAH QUIROGA SPEECH AND HEARING CLINIC DIRECTOR Copy to: ? Final Report SPECIMEN ADEQUACY ? Satisfactory for Evaluation - transformation zone component present GENERAL CATEGORIZATION ? Negative for Intraepithelial Lesion or Malignancy ?? Last Menstrual Period: years Specimen/Source: ??Pap Test, Cervix, ThinPrep Imaging System with manual evaluation Document reviewed and electronically signed by: ? Monica Cason [facility](ASCP) ? Report ??Date: 01/06/2017 09:11 HPV with Pap Test ? Date Ordered: ? 01/06/2017 ? Status: ?? Signed Out ?Date Complete: ? 01/07/2017 ? By: ??System Interface ? Date Reported: ? 01/07/2017 ? Interpretation RESULT: Negative for HPV. No E6 or E7 mRNA is detected from HPV types 16,18,31,33,35, 39,45,51,52,56,58, 59,66, and 68 by cement contractor mediated amplification. Comments Document reviewed and electronically signed by: ? System Interface ? Report date: 01/07/2017 By the signature above, the attending physician certifies that he/she has personally conducted a gross and/or microscopic examination of the described specimens and rendered or confirmed the above diagnosis. End of Report [facility] 12/23/2016 12/25/2016 Deborah Quiroga CARE MANAGEMENT SPECIALIST PATHOLOGY ORDERABLES [facility] [address] [place] [address] documented in this encounter Visit Diagnoses Not on filedocumented in this encounter Care Teams Company Accountant Relationship Specialty Start Date End Date Ashley Chavez ARNP [address] [place] [address] PCP - General 07/11/10 documented as of this encounter
--- OUTSIDE RECORDS SUMMARY | 2024-05-16 15:35 | XMS_ITS | Encounter Summary ---
Author Organization [facility] [place] [address] Care Team Providers Care [employer]ance [employer] Officer Name Role Phone Magdalena Acosta MD Primary Care Provider [phone] Reason for Visit * Reason Comments Coronary Artery Disease Hypertension Aortic Stenosis Encounter Details Date Type Department Care Team (Latest Contact Info) Description 07/20/2023 4:40 PM EST TH Visit (TeleHealth) Cardiology at [address] [address] [facility] [place] [address] HFrEF (heart failure with reduced ejection fraction); [...] lieu of an in person office visit. Stretcher And Drier: Antelmo Sharma MD ([facility] Cards) Maria Luz Mejia MD ([facility] cards) Problem List: : prior [...] fraction I35.0 Mild coronary artery disease by [facility] 11/09/2022 I25.10 Heart failure with reduced [...] notable for coronary artery protection given low [id number] distance. There was no obstruction post Valve deployment, but the stent could not be removed safely, so it was deployed. 4.0 mm x 30mm in left main. She was loaded on brilinta aka ticagrelor. Immediately post valve deployment, chest compressions to circulate central epinephrine which was administered given her hypotension, low LVEF, and low cardiac reserve. Next, the patient was transferred to [facility] for pressor and inotropic support. Pressors weaned overnight. Cardiac indices by thermodilution remained greater than 3 with continued Milrinone 0.125 mcg/kg/min. EKG the next day with NSR with stable WI/QRS intervals. Hemoglobin 7.8 today from 8.5, likely [...] arms and wrists. Successful right transfemoral TAVR [id number] with a 23 mm Lai 3 THV. [...] leads Confirmed by MD Harshil, Haris Bell ([id number]) on 05/10/2023 8:11:46 AM Cardiac Cath 11/09/2022 [...] in chart review and direct patient contact. [id number] 0-5min [id number] 6-10min [id number] 11-15min [id number] 16-20min x [id number] 21-30min [id number] 31-40min [id number] 40+ min Jay Maza PA-C Interventional Cardiology [facility] Pager [phone] documented in this encounter Plan of Treatment Upcoming Encounters Date Type Department Care Team (Late st Contact Info) Description 05/29/2024 2:00 PM EDT Hospital Encounter [place] [phone] Markel Borjas MD [facility] [place] [address] 05/29/2024 2:00 PM EDT - 05/29/2024 2:43 PM EDT Surgery [place] [phone] Markel Borjas MD [facility] [place] [address] (OSC MSURG) BONE MARROW BIOPSY AND ASPIRATION; DIAGNOSTIC (WRVU 1.44) 06/23/2024 2:00 PM EST Office Visit Hematology [place] [phone] Markel Borjas MD [facility] [place] [address] 03/01/2025 4:15 PM EDT Office Visit Dermatology at [place] [address] [place] [address] Marek Bonilla MD [address] DERMATOLOG[address] [place], [place] [id number] Scheduled Procedures Name Priority Associated Diagnoses Date/Ti me (OSC MSURG) BONE MARROW BIOPSY AND ASPIRATION; DIAGNOSTIC (WRVU 1.44) Anemia, in pt with longstanding neutropenia 05/29/2024 2:00 PM EDT documented as of this encounter Visit Diagnoses Diagnosis HFrEF (heart failure with reduced ejection fraction) Hypertension, unspecified type Aortic valve stenosis, etiology of cardiac valve disease unspecified documented in this encounter Care Teams [employer]ance [employer] Officer Relationship Specialty Start Date End Date Magdalena Acosta MD [address] [place] [address] PCP - General Family Medicine 02/05/23 documented as of this encounter
--- OUTSIDE RECORDS SUMMARY | 2024-05-16 15:35 | XMS_ITS | Encounter Summary ---
Author Organization [facility] [place] [address] Care Team Providers Care Motor Setter Name Role Phone Magdalena Acosta MD Primary Care Provider [phone] Encounter Details Date Type Department Care Team (Latest Contact Info) Description 05/12/2024 Travel Social History Tobacco Use Types Packs/Day [...] PM EDT Hospital Encounter [place] [address] Markel Borjas MD [facility] DR HEMATOLOGY [place] [address] 05/29/2024 2:00 PM EDT - 05/29/2024 2:43 PM EDT Surgery [place] [address] Markel Borjas MD [facility] DR HEMATOLOGY [place] [address] (OSC MSURG) BONE MARROW BIOPSY AND ASPIRATION; DIAGNOSTIC (WRVU 1.44) 06/23/2024 2:00 PM EST Office Visit Hematology [place] [phone] Markel Borjas MD [facility] HEMATOLOG[place] [address] 03/01/2025 4:15 PM EDT Office Visit Dermatology at [place] [address] [place] [phone] Marek Bonilla MD [address] DERMATOLOG[address] [place], [place] [phone] Scheduled Procedures Name Priority Associated Diagnoses Date/Ti me (OSC MSURG) BONE MARROW BIOPSY AND ASPIRATION; DIAGNOSTIC (WRVU 1.44) Anemia, in pt with longstanding neutropenia 05/29/2024 2:00 PM EDT documented as of this encounter Visit Diagnoses Not on filedocumented in this encounter Care Teams Motor Setter Relationship Specialty Start Date End Date Magdalena Acosta MD [address] [place] [address] PCP - General Family Medicine 02/05/23 documented as of this encounter
--- OUTSIDE RECORDS SUMMARY | 2024-05-16 15:35 | XMS_ITS | Encounter Summary ---
Author Organization [facility] Address [facility] [place] [address] Care Team Providers Care Machine Hose Cutter Name Role Phone Magdalena Acosta MD Primary Care Provider [phone] Encounter Details Date Type Department Care Team (Latest Contact Info) Description 07/08/2023 12:35 PM EST Laboratory Appointment Lab [address] [place] [address] S/P TAVR (transcatheter aortic valve [...] PM EDT Hospital Encounter [place] [phone] Markel Borjas MD [facility] [address] [place] [address] 05/29/2024 2:00 PM EDT - 05/29/2024 2:43 PM EDT Surgery [place] [address] Markel Borjas MD [facility] [address] [place] [address] (OSC MSURG) BONE MARROW BIOPSY AND ASPIRATION; DIAGNOSTIC (WRVU 1.44) 06/23/2024 2:00 PM EST Office Visit Hematology [place] [phone] Markel Borjas MD [facility] [address] [place] [address] 03/01/2025 4:15 PM EDT Office Visit Dermatology at [place] [address] [place] [address] Marek Bonilla MD [address] [place] [address] Scheduled Procedures Name Priority Associated Diagnoses Date/Ti [...] 11:56 AM EST) Neutrophil % 73.2 % [facility] Neutrophil Absolute 3.40 1.70 - 6.10 x10(3)/mc L [facility] Lymph % 16.1 % [facility] Lymphocytes Abs 0.8(L) 0.9 - 3.2 x10(3)/mc L [facility] Monocyte % 9.7 % [facility] Monocyte Abs 0.4 0.3 - 0.9 x10(3)/mc L [facility] Eos % 0.4 % [facility] Eosinophils Abs 0.0 0.0 - 0.4 x10(3)/ L [facility] Basophil % 0.4 % [facility] Baso Absolute 0.0 0.0 - 0.1 x10(3)/ L [facility] Immature Gran % 0.20 % [facility] Comment: Immature granulocytes(IG's)percentage and absolute count will include metamyelocytes, myelocytes, and promyelocytes. Blood smears from CBCs yielding IG's will be scanned manually for concordance. If this scan disagrees with the automated IG or if promyelocytes are noted, a manual differential will be performed. Immature Gran Absolute 0.01 0.00 - 0.04 x10(3)/ L [facility] Blood 07/08/2023 11:5 6 AM EST 07/08/2023 12:02 PM EST Narrative Resulting Agency Comment Spec In Lab Minh TOBAR HEMATOLOGY ORDERABLE S [facility] [place] [address] * (ABNORMAL) Hemogram (07/08/2023 11:56 AM EST) White Blood Cell 4.6 4.0 - 9.5 x10(3)/mc L [facility] Red Blood Cell 3.34(L) 4.00 - 5.21 x10(6)/ L [facility] Hemoglobin 11.0(L) 11.7 - 15.5 g/dL [facility] Hematocrit 33.2(L) 35.7 - 45.8 % [facility] Mean Cell Volume 99.4(H) 82.6 - 94.4 fL [facility] Mean Cell Hemoglobin 32.9(H) 27.1 - 32.0 pg [facility] Mean Cell Hemoglobin Concentration 33.1 31.7 - 35.0 g/dL [facility] Platelet 166 145 - 357 x10(3)/mc L [facility] RDW Standard Deviation 47.1(H) 37.0 - 46.0 fL [facility] RDW coefficient of variation 13.0 11.5 - 14.1 % [facility] Mean Platelet Volume 9.0 7.6 - 12.9 fL [facility] NRBC% auto 0.0 % [facility] NRBC Absolute 0.000 0.000 - 0.000 x10(3)/ L [facility] Blood 07/08/2023 11:5 6 AM EST 07/08/2023 12:02 PM EST Narrative Resulting Agency Comment Spec In Lab Minh TOBAR HEMATOLOGY ORDERABLE S Performing Organization Address City/State/[facility] Co de Phone Number [facility] [place] [address] * (ABNORMAL) Comprehensive metabolic panel (non-fasting) (07/08/2023 11:56 AM EST) Glucose 93 65 - 199 mg/dL [facility] Comment:Diabetes: >=200 mg/d L plus symptoms Blood Urea Nitrogen 19(H) 8 - 18 mg/dL [facility] Creatinine 0.81 0.70 - 1.20 mg/dL [facility] Sodium 142 135 - 145 mmol/L [facility] Potassium 3.8 3.5 - 5.0 mmol/L [facility] Comment: Please note: ??Patients with WBC >100,000 may have falsely elevated Potassium levels. ??For accurate Potassium quantification in these patients send serum separator tube (gold top) for subsequent determinations. ??Contact the Clinical Chemistry Laboratory if there are any questions. Chloride 104 98 - 107 mmol/L [facility] Carbon Dioxide 26 22 - 31 mmol/L [facility] Anion Gap 12 5 - 15 mmol/L [facility] Calcium 10.2 8.5 - 10.5 mg/dL [facility] Protein, Total 7.4 6.1 - 8.0 g/dL [facility] Albumin 4.1 3.2 - 5.2 g/dL [facility] Aspartate Aminotransferase 24 0 - 30 unit/L [facility] Alanine Aminotransferase 12 0 - 30 unit/L [facility] Alkaline Phosphatase 93 35 - 105 unit/L [facility] Bilirubin, Total 0.3 0.2 - 1.3 mg/dL [facility] Est Glomerular Filtration Rate 80 >=60 mL/min/1. 73 m?? [facility] Co de Phone Number [facility] [place] [address] documented in this encounter Visit Diagnoses Diagnosis S/P TAVR (transcatheter aortic valve replacement) Severe aortic stenosis Aortic valve disorders documented in this encounter Care Teams Machine Hose Cutter Relationship Specialty Start Date End Date Magdalena Acosta MD [address] [place] [address] PCP - General Family Medicine 02/05/23 documented as of this encounter
--- OUTSIDE RECORDS SUMMARY | 2024-05-16 15:35 | XMS_ITS | Encounter Summary ---
Author Organization [facility] Address [address] [place] [address] Care Team Providers Care Curriculum Supervisor Name Role Phone Ashley Chavez Primary Care Provider [phone] Encounter Details Date Type Department Care Team (Late st Contact Info) Description 12/17/2021 Lab Requisition [facility] Pathology & Laboratory Medicine - [address] [id number] Outr Resulting Lab, Provider Social History Tobacco [...] Lyme Ab Negative Negative 12/18/2021 10:37 EDT [facility] Blood VENOUS BLOOD / Unknown 12/17/2021 13:30 EDT 12/17/2021 21:32 EDT Provider Outr Resulting Lab IMMUNOLOGY A ND SEROLOGY ORDERABLES Performing Organization Address [facility] Co de Phone Number [facility] [address] [place] [address] * (ABNORMAL) ANTI NUCLEAR AB (FRANCISCO), IFA (12/17/2021 13:30 EDT) FRANCISCO Interpretation Positive(A) Negative 12/18/2021 16:06 EDT [facility] Comment: For titers [...] Pattern 1 1:1280 Speckled 12/18/2021 16:06 EDT [facility] Blood VENOUS BLOOD / Unknown 12/17/2021 13:30 EDT 12/17/2021 21:32 EDT Narrative [facility] - 12/18/2021 16:06 EDT Results were obtained with the INOVA NOVA Lite HEp-2 FRANCISCO Kit by indirect immunofluorescence. Provider Outr Resulting Lab IMMUNOLOGY A ND SEROLOGY ORDERABLES Performing Organization Address [facility] Co de Phone Number [facility] [address] [place] [address] documented in this encounter Visit Diagnoses Not on filedocumented in this encounter Care Teams Curriculum Supervisor Relationship Specialty Start Date End Date Ashley Chavez ARNP [address] [place] [address] PCP - General 07/11/10 documented as of this encounter
--- OUTSIDE RECORDS SUMMARY | 2024-05-16 15:35 | XMS_ITS | Encounter Summary ---
Author Organization [facility] [place] [address] Care Team Providers Care Rivet Driver Name Role Phone Magdalena Acosta MD Primary Care Provider Encounter Details Date Type Department Care Team (Latest Contact Info) Description 05/12/2024 9:00 AM EDT Laboratory Appointment Lab at [facility] Hematology Oncology [address] [place] [address] S/P TAVR (transcatheter aortic valve replacement); Chronic idiopathic neutropenia Social History Tobacco Use [...] PM EDT Hospital Encounter [place] [address] Markel Borjas MD [facility] [address] [place] [address] 05/29/2024 2:00 PM EDT - 05/29/2024 2:43 PM EDT Surgery [place] [address] Markel Borjas MD [facility] [address] [place] [address] (OSC MSURG) BONE MARROW BIOPSY AND ASPIRATION; DIAGNOSTIC (WRVU 1.44) 06/23/2024 2:00 PM EST Office Visit H[place]ology [place] [phone] Markel Borjas MD [facility] [address] [place] [address] 03/01/2025 4:15 PM EDT Office Visit Dermatology at [place] [address] [place] [address] Marek Bonilla MD [address] [place] [address] Scheduled Procedures Name Priority Associated Diagnoses Date/Ti me (OSC MSURG) BONE MARROW BIOPSY AND ASPIRATION; DIAGNOSTIC (WRVU 1.44) Anemia, in pt with longstanding neutropenia 05/29/2024 2:00 PM EDT documented as of this encounter Procedures Procedure Name Priority Date/Time Associated Diagnosis Comments RETICULOCYTE COUNT STAT 05/12/2024 8: 56 AM EDT Chronic idiopathic neutropenia CBC (WITH DIFF) STAT 05/12/2024 8:56 AM EDT Chronic idiopathic neutropenia COMPREHENSIVE METABOLIC PANEL STAT 05/12/2024 8:56 AM EDT Chronic idiopathic neutropenia documented in this encounter Results * Reticulocyte Count (05/12/2024 8:56 AM EDT) Reticulocyte % 1.20 0.70 - 2.50 % 05/12/2024 9:32 AM EDT [facility] Retic Abs # 0.0397 0.0200 - 0.1100 x10(6)/mcL 05/12/2024 9:32 AM EDT [facility] Immature Retic% 8.1 0.5 - 13.8 % 05/12/2024 9:32 AM EDT [facility] Reticulated Hgb 35.2 29.8 - 39.4 pg 05/12/2024 9:32 AM EDT [facility] Blood VENOUS BLOOD SPECIMEN / Unknown Venipuncture / Unknown 05/12/2024 8:56 AM EDT 05/12/2024 8:56 AM EDT Tovahermelindo Russell AUTOMATIC DIE CUTTING MACHINE OPERATOR HEMATOLOGY ORDERABL ES [facility] [place] [address] * (ABNORMAL) Comprehensive metabolic panel Non-fasting (05/12/2024 8:56 AM EDT) Glucose 86 65 - 199 mg/dL 05/12/2024 11:36 AM [facility] Comment:Glucose Concentratio n >=200 mg/dL plus symptoms is consistent with Diabetes Mellitus. Blood Urea Nitrogen 20(H) 8 - 18 mg/dL 05/12/2024 11:36 AM [facility] Creatinine 0.88 0.70 - 1.20 mg/dL 05/12/2024 11:36 AM [facility] Sodium 145 135 - 145 mMol/L 05/12/2024 11:36 AM [facility] Potassium 4.6 3.5 - 5.0 mMol/L 05/12/2024 11:36 AM [facility] Chloride 109(H) 98 - 107 mMol/L 05/12/2024 11:36 AM [facility] Carbon Dioxide 21(L) 22 - 31 mMol/L 05/12/2024 11:36 AM [facility] Anion Gap 15 5 - 15 mMol/L 05/12/2024 11:36 AM [facility] Comment:Not Calculated. Calcium 9.9 8.5 - 10.5 mg/dL 05/12/2024 11:36 AM [facility] Protein, Total 7.3 6.1 - 8.0 g/dL 05/12/2024 11:36 AM [facility] Albumin 4.5 3.2 - 5.2 g/dL 05/12/2024 11:36 AM [facility] Aspartate Aminotransferase 24 <=30 unit/L 05/12/2024 11:36 AM [facility] Alanine Aminotransferase 14 0 - 30 unit/L 05/12/2024 11:36 AM [facility] Alkaline Phosphatase 98 35 - 105 unit/L 05/12/2024 11:36 AM [facility] Bilirubin, Total 0.2 <=1.3 mg/dL 05/12/2024 11:36 AM [facility] Est Glomerular Filtration Rate - Female 72 mL/min/1. 73 m?? 05/12/2024 11:36 AM [facility] Comment: This patient's estimated [...] Foundation Fasting Status No 05/12/2024 11:36 AM [facility] Blood VENOUS BLOOD SPECIMEN / Unknown Venipuncture / Unknown 05/12/2024 8:56 AM EDT 05/12/2024 8:56 AM EDT Tova Russell AUTOMATIC DIE CUTTING MACHINE OPERATOR CHEMISTRY ORDERABLE S [facility] [place] [address] * (ABNORMAL) CBC (with Diff) (05/12/2024 8:56 AM EDT) White Blood Cell 3.47(L) 4.00 - 9.50 x10(3)/mc L 05/12/2024 9:32 AM EDT [facility] Red Blood Cell 3.31(L) 4.00 - 5.21 x10(6)/mc L 05/12/2024 9:32 AM EDT [facility] Hemoglobin 11.1(L) 11.7 - 15.5 g/dL 05/12/2024 9:32 AM EDT [facility] Hematocrit 33.2(L) 35.7 - 45.8 % 05/12/2024 9:32 AM EDT [facility] Mean Cell Volume 100.3(H) 82.6 - 94.4 fL 05/12/2024 9:32 AM EDT [facility] Mean Cell Hemoglobin 33.5(H) 27.1 - 32.0 pg 05/12/2024 9:32 AM EDT [facility] Mean Cell Hemoglobin Concentration 33.4 31.7 - 35.0 g/dL 05/12/2024 9:32 AM EDT [facility] Platelet 142(L) 145 - 357 x10(3)/mc L 05/12/2024 9:32 AM EDT [facility] Mean Platelet Volume 8.7 7.6 - 12.9 fL 05/12/2024 9:32 AM EDT [facility] RDW Standard Deviation 44.4 37.0 - 46.0 fL 05/12/2024 9:32 AM EDT [facility] RDW coefficient of variation 12.0 11.5 - 14.1 % 05/12/2024 9:32 AM [facility] NRBC% auto 0.0 % 05/12/2024 9:32 AM [facility] NRBC Absolute <0.01 <0.01 x10(3)/mc L 05/12/2024 9:32 AM [facility] Neutrophil % 69.7 % 05/12/2024 9:32 AM [facility] Neutrophil Absolute (ANC) - Automated 2.42 1.70 - 6.10 x10(3)/mc L 05/12/2024 9:32 AM [facility] Lymph % 16.7 % 05/12/2024 9:32 AM [facility] Lymph Absolute 0.58(L) 0.90 - 3.20 x10(3)/mc L 05/12/2024 9:32 AM [facility] Monocyte % 12.1 % 05/12/2024 9:32 AM [facility] Monocyte Absolute 0.42 0.30 - 0.90 x10(3)/mc L 05/12/2024 9:32 AM [facility] Eos % 0.6 % 05/12/2024 9:32 AM [facility] Eos Absolute <0.04 0.00 - 0.40 x10(3)/mc L 05/12/2024 9:32 AM [facility] Basophil % 0.6 % 05/12/2024 9:32 AM [facility] Baso Absolute <0.04 0.00 - 0.10 x10(3)/mc L 05/12/2024 9:32 AM [facility] Immature Gran % 0.3 % 9:32 AM [facility] Immature Gran Absolute <0.04 0.00 - 0.04 x10(3)/mc L 05/12/2024 9:32 AM [facility] Blood VENOUS BLOOD SPECIMEN / Unknown Venipuncture / Unknown 05/12/2024 8:56 AM EDT 05/12/2024 8:56 AM EDT Tova Mejias Drew AUTOMATIC DIE CUTTING MACHINE OPERATOR HEMATOLOGY ORDERABL ES Performing Organization Address City/State/[facility] [[email or web address]] Co de Phone Number [facility] [place] [address] documented in this encounter Visit Diagnoses Diagnosis S/P TAVR (transcatheter aortic valve replacement) Chronic idiopathic neutropenia Other neutropenia documented in this encounter Care Teams Rivet Driver Relationship Specialty Start Date End Date Magdalena Acosta MD [address] [place] [address] PCP - General Family Medicine 02/05/23 documented as of this encounter
--- OUTSIDE RECORDS SUMMARY | 2024-05-16 15:35 | XMS_ITS | Encounter Summary ---
Author Organization [place] [address] Care Team Providers Care Management Specialist Name Role Phone Magdalena Acosta MD Primary Care Provider [phone] Reason for Visit * Reason Comments Aortic Stenosis Coronary Artery Disease Hypertension Encounter Details Date Type Department Care Team (Latest Contact Info) Description 11/16/2023 11:40 AM EDT TH Visit (TeleHealth) Cardiology at [address] [address] Jay Maza PA [facility] [place] [address] Aortic valve stenosis, etiology of cardiac valve disease unspecified; Coronary artery disease, unspecified vessel or lesion type, unspecified whether angina present, unspecified whether samish or transplanted heart Social History Tobacco Use [...] the original note were not included. [facility] Interventional Cardiology CARDIOLOGY TELE VISIT NOTE 11/16/23 Patient: Purnima Thacker Prior to the initiation of our discussion, the risks and benefits of tele health visits were discussed, and the patient consented verbally to this being a virtual telehealth visit in lieu of an in person office visit. CARDIOLOGISTS: Antelmo Sharma MD ([facility]) Maria Luz Mejia MD ([facility] - [facility]) Problem List: Aortic [...] Mild coronary artery disease by [facility] 11/09/2022 I25.10 Heart failure with reduced ejection [...] notable for coronary artery protection given low [id number] distance. There was no obstruction post Valve [...] leads Confirmed by MD Harshil, Haris Bell ([id number]) on 05/10/2023 8:11:46 AM Cardiac Cath 11/09/2022 [...] in one year. EKATERINA Thompson Time spent: [id number] 0-5min [id number] 6-10min [id number] 11-15min x [id number] 16-20min [id number] 21-30min [id number] 31-40min [id number] 40+ min Jay Maza PA-C Interventional Cardiology [facility] Pager [phone] documented in this encounter Plan of Treatment Upcoming Encounters Date Type Department Care Team (Late st Contact Info) Description 05/29/2024 2:00 PM EDT Hospital Encounter Outpatient [facility] [place] [address] Markel Borjas MD [facility] [address] [place] [address] 05/29/2024 2:00 PM EDT - 05/29/2024 2:43 PM EDT Surgery [place] [phone] Markel Borjas MD [facility] [address] [place] [address] (OSC MSURG) BONE MARROW BIOPSY AND ASPIRATION; DIAGNOSTIC (WRVU 1.44) 06/23/2024 2:00 PM EST Office Visit Hematology [place] [phone] Markel Borjas MD [facility] DR [place] [address] 03/01/2025 4:15 PM EDT Office Visit Dermatology at [address] [address] Marek Bonilla MD [address] [facility] [place] [address] Scheduled Procedures Name Priority Associated Diagnoses Date/Ti me (OSC MSURG) BONE MARROW BIOPSY AND ASPIRATION; DIAGNOSTIC (WRVU 1.44) Anemia, in pt with longstanding neutropenia 05/29/2024 2:00 PM EDT documented as of this encounter Visit Diagnoses Diagnosis Aortic valve stenosis, etiology of cardiac valve disease unspecified Coronary artery disease, unspecified vessel or lesion type, unspecified whether angina present, unspecified whether samish or transplanted heart documented in this encounter Care Teams Management Specialist Relationship Specialty Start Date End Date Magdalena Acosta MD [address] [place] [id number] PCP - General Family Medicine 02/05/23 documented as of this encounter
--- OUTSIDE RECORDS SUMMARY | 2024-05-16 15:35 | XMS_ITS | Encounter Summary ---
Author Organization [facility] Address [address] [place] [address] Care Team Providers Care Compliance Vice President Name Role Phone Ashley Chavez Primary Care Provider [phone] Encounter Details Date Type Department Care Team (Late st Contact Info) Description 06/23/2016 Results Only [facility] [phone] Matthew Acevedo, DO [address] [facility] TODD HAMIL[place] [address] [place] [address] Social History Tobacco Use Types Packs/Day [...] ? PURNIMA THACKER ? Accession #: ? [id number] : ? 1955 (Age: 60) ??F ?Collect [...] ??400 ?? KARYOTYPE: 46,XX[25] End of Report [facility] 06/23/2016 06/24/2016 Matthew Acevedo DO PATHOLOGY ORDER JODIE [facility] [address] [place] [address] * FLOW CYTOMETRY (06/23/2016 0:00 EST) Pathology Report: FLOW CYTOMETRY REPORT Reports generated via electronic interface contain original data; however they are lacking the format of the original report. Caution should be taken when reading/interpreting unformatted reports. Name: ? PURNIMA THACKER ? Accession #: ? [id number] : ? 1955 (Age: 60) ??F ?Collect Date: ? 06/23/2016 00:00 Location: ? [facility] ? Receive Date: ? 06/24/2016 08:00 Provider: ?MATTHEW ACEVEDO DO Copy to: ?WINTER HANKINS ABAP DEVELOPER MARIO ALBERTO RAMOS MD ? FINAL IMMUNOPHENOTYPIC INTERPRETATION: ? Bone marrow, flow cytometric analysis: -No immunophenotypic evidence of a clonal cell population. ??See comment. ? COMMENT: The results of flow cytometry show no immunophenotypic evidence of involvement by a clonal lymphoproliferative or myeloproliferative disorder. ??Correlation of these findings with morphologic and clinical data is essential. ??Please refer to pathology report number [id number] for morphologic details. ? Document reviewed and [...] the Department of Pathology and Laboratory Medicine, [place], [place] ??It has not been cleared or [...] clinical laboratory testing. End of Report ?? [facility] 06/23/2016 06/24/2016 8:0 0 EST Matthew Acevedo DO PATHOLOGY ORDER JODIE [facility] [address] [place] [address] * BONE MARROW/HEMPATH CONSULT (06/23/2016 0:00 EST) Pathology Report: BONE MARROW REPORT Reports generated via electronic interface contain original data; however they are lacking the format of the original report. Caution should be taken when reading/interpreting unformatted reports. Name: ? PURNIMA THACKER ? Accession #: ? [id number] : ? 1955 (Age: 60) ??F ?Collect Date: ? 06/23/2016 Location: ? [facility] ? Receive Date: ? 06/24/2016 Provider: ? MATTHEW ACEVEDO DO Copy to: ?WINTER HANKINS ABAP DEVELOPER MARIO ALBERTO RAMOS MD ? DIAGNOSIS: Peripheral [...] reviewed and electronically signed by: ? ELDA LMIA MD ? Report Date: ??06/26/2016 12:13 By [...] #1: Aggregate biopsy length: 8 mm with warehouse traffic supervisor trabeculae of lamellar bone, cellular bone marrow, [...] SEE ABOVE DISCUSSION Lambda (polyclonal, Dako) ??(B1): Metter (polyclonal, Dako) ??(B1): Biopsy (decalcified) #2: Aggregate biopsy length: 8 mm with warehouse traffic supervisor trabeculae of lamellar bone, cellular bone marrow, [...] (M115, Leica) ??(B2): Lambda (polyclonal, Dako) ??(B2): Metter (polyclonal, Dako) ??(B2): NOTE: ??One or more [...] ? 1% Blasts ?1% Special Studies Cytogenetics ([id number]): Pending. Flow Cytometry ([id number]): No immunophenotypic evidence of a clonal cell population. ? End of Report [facility] 06/23/2016 06/24/2016 Matthew Acevedo DO PATHOLOGY ORDER JODIE [facility] [address] [place] [address] documented in this encounter Visit Diagnoses Not on filedocumented in this encounter Care Teams Compliance Vice President Relationship Specialty Start Date End Date Ashley Chavez ARNP [address] [place] [address] PCP - General 07/11/10 documented as of this encounter
--- OUTSIDE RECORDS SUMMARY | 2024-05-16 15:35 | XMS_ITS | Encounter Summary ---
Author Organization [facility] Address [address] [place] [address] Care Team Providers Care Shovel Logger Name Role Phone Unavailable Primary Care Provider Unavailabl e Encounter Details Date Type Department Care Team (Late st Contact Info) Description 07/08/2010 Results Only [facility] Non-Invasive Cardiology - [facility] [address] [place] [address] Ashley Chavez, WILLIAM [address] [place] [address] Social History Tobacco Use Types Packs/Day Years [...] ? PURNIMA THACKER ? Accession #: ? [id number] ? : ? 1955 (Age: 54) ??F [...] ??07/15/2010 14:04 ? End of Report ? PALU ARELLANO 07/08/2010 07/10/2010 Ashley THOMAS PATHOLOGY ORDERABLES PAUL ARELLANO [address] [place] [address] documented in this encounter Visit Diagnoses Not on filedocumented in this encounter
--- OUTSIDE RECORDS SUMMARY | 2024-05-16 15:35 | XMS_ITS | Encounter Summary ---
Author Organization [facility] [address] Care Team Providers Care Crossing Flagman Name Role Phone Magdalena Acosta MD Primary Care Provider [phone] Encounter Details Date Type Department Care Team (Late st Contact Info) Description 07/08/2023 10:15 AM EST Office Visit Cardiology at [address] [phone] Severe aortic stenosis Social History Tobacco Use [...] PM EDT Hospital Encounter [facility] [place] [phone] Markel Borjas MD [facility] [address] [place] [address] 05/29/2024 2:00 PM EDT - 05/29/2024 2:43 PM EDT Surgery [facility] [place] [phone] Markel Borjas MD [facility] [address] [place] [address] (OSC MSURG) BONE MARROW BIOPSY AND ASPIRATION; DIAGNOSTIC (WRVU 1.44) 06/23/2024 2:00 PM EST Office Visit [place]ology [place] [phone] Markel Borjas MD [facility] [address] [place] [address] 03/01/2025 4:15 PM EDT Office Visit Dermatology at [place] [address] [place] [phone] Marek Bonilla MD [address], [place] [address] Scheduled Procedures Name Priority Associated Diagnoses Date/Ti [...] (Bezet) 449 ms MUSE SYSTEM Calculated P [place] 66 degrees MUSE SYSTEM Calculated R [place] 60 degrees MUSE SYSTEM Calculated T [place] 53 degrees MUSE SYSTEM INTERPRETATION Normal sinus rhythm Minimal voltage criteria for LVH, may be normal variant ( Sokolow-Orozco ) ST & T wave abnormality, consider lateral ischemia ??vs. repolarization abnormality from LVH Abnormal ECG When compared with ECG of 13-MAY-2023 09:22, Premature ventricular complexes are no longer Present Minimal criteria for Septal infarct are no longer Present Confirmed by Maxx Best ([id number]) on 07/09/2023 10:07:22 AM MUSE SYSTEM 07/08/2023 10:2 7 AM EST 07/09/2023 10:07 AM EST Brody Dale Eusebio OSBORN ECG ORDERABLES MUSE SYSTEM documented in this encounter Visit Diagnoses Diagnosis Severe aortic stenosis Aortic valve disorders documented in this encounter Care Teams Crossing Flagman Relationship Specialty Start Date End Date Magdalena Acosta MD [address] [place] [address] PCP - General Family Medicine 02/05/23 documented as of this encounter
--- OUTSIDE RECORDS SUMMARY | 2024-05-16 15:35 | XMS_ITS | Encounter Summary ---
Author Organization [facility] Address [address] [place] [address] Care Team Providers Care Biomedical Electronics Technician Name Role Phone Scott Ashley WILLIAM Primary Care Provider [phone] Encounter Details Date Type Department Care Team (Late st Contact Info) Description 11/10/2013 Results Only [facility] [phone] Jeni Laird, BROKER IN CHARGE [address] [place], [place] [id number] Social History Tobacco Use Types Packs/Day Years [...] ? PURNIMA THACKER ? Accession #: ? [id number] : ? 1955 (Age: 58) ??F ?Collect Date: ? 11/10/2013 Location: ? [facility] ? Receive Date: ? 11/14/2013 Provider: ?JENI LAIRD BROKER IN CHARGE Copy to: ? Specimen/Source: ?Pap Test, Endocervix, [...] Report PAUL ARELLANO 11/10/2013 11/14/2013 Jeni Laird BROKER IN CHARGE PATHOLOGY ORDERAB LES Performing Organization Address City/State/[facility] Co de Phone Number PAUL ARELLANO [address] [place] [address] documented in this encounter Visit Diagnoses Not on filedocumented in this encounter Care Teams Biomedical Electronics Technician Relationship Specialty Start Date End Date Ashley Chavez ARNP [address] [place] [address] PCP - General 07/11/10 documented as of this encounter
[2024-05-16 15:37] VITALS: BP 122/62; PULSE 81
--- OUTSIDE RECORDS SUMMARY | 2024-05-16 15:37 | XMS_ITS | Encounter Summary ---
Author Organization Formerly [facility], [facility] [place] [address] Care Team Providers Care Audio Video Tech Name Role Phone Magdalena Acosta MD Primary Care Provider [phone] Reason for Referral * Diagnostic Test (Routine) - Closed Specialty Diagnoses / Procedures Referred By Contac t Referred To Contact Cardiology Diagnoses S/P TAVR (transcatheter aortic valve replacement) Procedures Echocardiogram Transthoracic Vinod Juárez PA [facility] [place] [address] [facility] [place] [address] Referral ID Status Reason Start Date Expiration Date V isits Requested Visits Authorized [id number] Closed Specialty Service Requested 05/22/2023 05/21/2024 1 1 * Home Health Care (Routine) - Closed Specialty Diagnoses / Procedures Referred By Contac t Referred To Contact Diagnoses S/P TAVR (transcatheter aortic valve replacement) Alirio Hudson MD [facility] CARDIOTHORACIC SURGERY [address] [facility] & [address] [place] [address] Referral ID Status Reason Start Date Expiration Date V isits Requested Visits Authorized [id number] Closed Consult, Test & Treat 05/22/2023 11/18/2023 999 999 * Consultation (Routine) - Closed Specialty Diagnoses / Procedures Referred By Crispin maxwell Referred To Contact Cardiology Diagnoses S/P TAVR (transcatheter aortic valve replacement) Alirio Hudson MD [facility] [place] [address] Cardiac Rehab, [address] [place] [address] Referral ID Status Reason Start Date Expiration Date V isits Requested Visits Authorized [id number] Closed Consult, Test & Treat 05/22/2023 11/18/2023 36 36 * Diagnostic Test (Routine) - Closed Specialty Diagnoses / Procedures Referred By Crispin maxwell Referred To Contact Cardiology Diagnoses Aortic valve stenosis, etiology of cardiac valve disease unspecified Procedures Echocardiogram Transthoracic Transesophageal Echocardiogram (YUSRA) Radha Hollins MD [facility] [place] [address] [facility] [place] [address] Referral ID Status Reason Start Date Expiration Date V isits Requested Visits Authorized [id number] Closed Specialty Service Requested 05/11/2023 05/10/2024 1 1 Reason for Visit * Auth/Cert (Routine) Specialty Diagnoses / Procedures Referred By Crispin maxwell Referred To Contact Diagnoses Symptomatic severe aortic stenosis with low ejection fraction NSTEMI, CHF Enrique Chua MD [facility] [place] [address] [facility] Referral ID Status Reason Start Date Expiration Date Visits Re quested Visits Authorized [id number] 1 1 Encounter Details Date Type Department Care Team (Latest Contact Info) Description 05/08/2023 9:14 AM EDT - 05/22/2023 10:46 AM EDT Hospital Encounter Heart and Vascular Unit Level 4 [place] [address] Enrique Chua MD [facility] [place] [address] Juan Luis Gonzalez MD [facility] [place] [address] Radha Hollins MD [facility] [place] [address] Alirio Hudson MD S/P TAVR (transcatheter aortic valve replacement) (Primary Dx); Aortic valve stenosis, etiology of cardiac valve disease unspecified; Symptomatic severe aortic stenosis with low ejection fraction; Heart failure with reduced ejection fraction due to heart valve disease; Mild coronary artery disease by [facility] 11/09/2022; Mixed connective tissue disease; Neck pain; [...] Patient Age: 67 y.o. Birthdate: 1955 Language: Serbian Race: White Ethnicity: Not nor Admit Date: 05/08/2023 Discharge Date: 05/22/2023 Attending Physician: Alirio Hudson MD Follow-up Recommendations for Providers: Please continue routine management of cardiovascular risk factors including blood pressure, lipids,glucose, etc. Please note any medication changes. Patient to follow up with PCP, Magdalena Acosta MD, or Primary Employee Communications Intern, Maria Luz Mejia MD, in ~ 7-10 days. Patient to follow up with Ammonia Box Tender, Dr. Antelmo Sharma, in 2 weeks with an EKG, Echo, CBC, and CMP. Patient to follow up with Nephrology, their office to arrange. Cdua-Waynlb-dq interval: After initial 30 day follow-up appointment , all TAVR patients will follow-up again in one year with an echo. 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 Secondary Diagnoses: Active Hospital Problems Diagnosis S/P TAVR (transcatheter aortic valve replacement) Cardiogenic shock Symptomatic severe aortic stenosis with low ejection fraction Mild coronary artery disease by [facility] 11/09/2022 Heart failure with reduced ejection fraction [...] Tube Placement Right 05/18/2023 Laure Ricks PA [facility] INTERVENTIONL RAD PRG CATH PLMT LEFT HEART CATH & ARTS W/INJ & ANGIO IMG S&I N/A 11/09/2022 CORONARY ANGIOGRAPHY; W [facility],POSSIBLE PCI (WRVU 5.6) performed by Mario Alberto Escobedo MD at [facility] CATH LABS PRG COMBINED RIGHT & LEFT HEART CATH W/INJ L VENTRICULOGRAPHY, IMG S&I N/A 05/12/2023 COMBINED RIGHT & LEFT HEART CATH,INC INJ FOR L VENTRICULOGRAPHY (WRVU 5.99) performed by Antelmo Sharma MD at [facility] CATH LABS PRO AORTOPLAS FOR SUPRAVALV STEN N/A 09/21/2016 @AORTOPLASTY FOR SUPRAVALVULAR STENOSIS (WRVU 29.33) performed by Alirio Hudson MD at [facility] MAIN OR PRO REPLACE AORTIC VALVE (TAVR/FEDERICO)PERC FEMORAL ARTERY APPROACH 05/12/2023 @TRANSCATHETER AORTIC VALVE REPLACEMENT (TAVR), PERCUTANEOUS FEMORAL (WRVU 22.47) performed by Alirio Hudson MD at [facility] CATH LABS PRO REPLACEMENT PROSTHETIC AORTIC VALVE OPEN W CARDIOPULMONARY BYPASS HOMOGRF/STENT N/A 09/21/2016 @REPLACE AORTIC VALVE, OPEN, W\CPB, W\PROSTHETIC VALVE (WRVU 41.32) performed by Alirio Hudson MD at [facility] MAIN OR Prior To Admission Medications [...] Major Procedures/Operations: 05/12/23: Successful right transfemoral TAVR Hydcd-gd-Uvbyw with a 23 mm Lai 3 THV. [...] TAVR and she was brought to the dairy lab technician the following morning where Drs. [...] if you have questions. Please call your Ammonia Box Tender's office if you have any discharge or drainage from your procedural sites. Your Ammonia Box Tender, Dr. Antelmo Sharma and/or the Gymnastics Coach may be reached at . Antibiotic prophylaxis: [...] friends, go to a movie, go to methodist, etc. Heavy activities: No hunting, skiing, jogging, [...] pain, warmth or drainage. Please call your enterprise manager's office if you have any discharge or drainage from your procedural sites. If there is a lot of swelling, apply mamta wraps during the day and remove at bedtime. Elevate your legs when you are sitting. Home oxygen therapy: N/A Follow up appointments: Please schedule a follow-up appointment with your PCP, Magdalena Acosta MD, or Primary Employee Communications Intern in ~ 7-10 days. You have a follow-up appointment with your Ammonia Box Tender, Dr. Antelmo Sharma, in 2 weeks with an EKG, Echo, and labs prior to your appointment. You will need follow-up with Nephrology, their office will arrange. Jara-Gtzogb-ev interval: After initial 30 day follow-up appointment [...] 11:00 AM Magdalena Peralta MD Rheumatology at [facility] [place] [facility] Arrive at: It Help Desk Associate Area 5C [phone] 02/11/2024 2:00 PM Marek Bonilla MD Dermatology at [place] Arrive at: [facility] [address] [phone] Future Orders Complete By Expires Type and Screen Future Surgery, [facility] SAME DAY PROGRAM ONLY) [[id number] Custom] 05/11/2023 Process Instructions: This test is intended ONLY for patients with upcoming surgery for testing prior to the day of surgery obtained through the same day program (4V or SDP). For ALL OTHER PATIENTS, order a Type and Screen (PED875) This order includes the physician order for an ABO Recheck if requested by the Blood Bank. Scheduling Instructions: Comments: Questions: Date of surgery: CBC (with Diff) [RSC779 Custom] 06/05/2023 12/05/2023 Process Instructions: INCLUDES: WBC, RBC, Hgb, Hct, Platelets, RBC Indices and Differential Scheduling Instructions: Comments: Questions: Comprehensive metabolic panel (non-fasting) [LAB17 Custom] 06/05/2023 08/20/2023 Process Instructions: INCLUDES: Calcium, T Protein, Albumin, AST, ALT, Alk Phos, T Bili, BUN, Creat, GFR, Glucose, Lytes. Scheduling Instructions: Comments: Questions: Echocardiogram Transthoracic [30585 CPT(R)] 06/05/2023 12/05/2023 Process Instructions: Scheduling Instructions: Questions: Where will study be performed?: [facility] [place] Clinics Does the patient have Congenital Heart Disease?: Does patient require sedation?: GA rationale: EKG 12 Lead [23357 CPT(R)] 06/05/2023 12/05/2023 Process Instructions: Scheduling Instructions: Questions: Which location will this be performed?: [facility] Is a rhythm strip needed?: No [facility] [EQ161 Custom] As directed Process Instructions: Scheduling Instructions: Questions: Device Needed: WALKER (E0143) Patient Height (cm): 154.9 cm (5' 0.98) Patient Weight: 75.4 kg (166 lb 3.2 oz) Diagnosis: Unsteady gait when walking Referral to Cardiac Rehab [[id number] Custom] As directed Process Instructions: If no progress note charted, please enter Clinical details in comments. Scheduling Instructions: Questions: My question or request is: s/p TAVR. Cardiac rehab at [facility]. Referral to Home Health [REF34 Custom] As directed Process Instructions: If no progress note charted, please enter Clinical details in comments. Scheduling Instructions: Comments: DOCUMENTATION FOR VNA SERVICES PATIENT'S LOCATION: Purnima Thacker [address] [place] [phone] (home) Hog Operator's Name: Self and brother Raymond In discussion with the attending physician, it is certified that this patient is under his/her careand that MD, or an ADVERTISING AGENT, OFFICE SPECIALIST, or PA who is working directly with him/her, had a kuqo-ka-nvzh encounter that meets the physician ihfa-yk-wnck encounter requirements with this patient on 05/22/2023. [...] for managing ADLs. HOME HEALTH CARE AGENCY: [facility]. [address] [place] [address] PHONE: [phone] FAX: [phone] Start of care: Ideally 24-48 hours after [...] MD [address] / [facility] [address] All VNA agencies which cover the area [...] Surgery Date: 05/22/2023 CC: Magdalena Acosta MD [place] Alberto MD [address] [place] [address] documented in this encounter Discharge Instructions * Patient Instructions* Vinod Juárez PA - 05/22/2023 9:32 AM EDT TAVR Discharge Instructions: Call your doctor if: You have a fever of greater than 101 degrees, shaking chills, if you develop redness or drainage from your procedure sites, or if you have questions. Please call your Ammonia Box Tender's office if you have any discharge or drainage from your procedural sites. Your Ammonia Box Tender, Dr. Antelmo Sharma and/or the Gymnastics Coach may be reached at . Antibiotic prophylaxis: [...] friends, go to a movie, go to methodist, etc. Heavy activities: No hunting, skiing, jogging, [...] pain, warmth or drainage. Please call your enterprise manager's office if you have any discharge or drainage from your procedural sites. If there is a lot of swelling, apply mamta wraps during the day and remove at bedtime. Elevate your legs when you are sitting. Home oxygen therapy: N/A Follow up appointments: Please schedule a follow-up appointment with your PCP, Magdalena Acosta MD, or Primary Employee Communications Intern in ~ 7-10 days. You have a follow-up appointment with your Ammonia Box Tender, Dr. Antelmo Sharma, in 2 weeks with an EKG, Echo, and labs prior to your appointment. You will need follow-up with Nephrology, their office will arrange. Ouby-Ajdjjz-od interval: After initial 30 day follow-up appointment [...] by mouth once as needed. Before dental furosemide (Lasix) 20 mg tablet Take 1 tablet by mouth daily. 90 tablet 3 05/23/2023 02/22/2024 metoproloL tartrate (Lopressor) 25 mg tablet Take 1 tablet by mouth 2 times daily. 60 tablet 3 05/22/2023 05/12/2024 ticagrelor (Brilinta) 90 mg tablet Take 1 [...] ins ( tef) Haven Ba, PT Pager: [phone] Physical Therapy Inpatient Rehabilitation Department * Nico [...] 0600 and on the weekends please page [phone]. * Jory Paniagua - 05/20/2023 3:52 PM [...] vomiting Last Bowel Movement: 05/20/23 Jory Paniagua Client Service Professional * Mike Tong, OT - 05/20/2023 3:16 PM EDT [...] Tube Placement Right 05/18/2023 Laure Ricks PA [facility] INTERVENTIONL RAD PRG CATH PLMT LEFT HEART CATH & ARTS W/INJ & ANGIO IMG S&I N/A 11/09/2022 CORONARY ANGIOGRAPHY; W [facility],POSSIBLE PCI (WRVU 5.6) performed by Mario Alberto Escobedo MD at [facility] CATH LABS PRG COMBINED RIGHT & LEFT HEART CATH W/INJ L VENTRICULOGRAPHY, IMG S&I N/A 05/12/2023 COMBINED RIGHT & LEFT HEART CATH,INC INJ FOR L VENTRICULOGRAPHY (WRVU 5.99) performed by Antelmo Sharma MD at [facility] CATH LABS PRO AORTOPLAS FOR SUPRAVALV STEN N/A 09/21/2016 @AORTOPLASTY FOR SUPRAVALVULAR STENOSIS (WRVU 29.33) performed by Alirio Hudson MD at [facility] MAIN OR PRO REPLACE AORTIC VALVE (TAVR/FEDERICO)PERC FEMORAL ARTERY APPROACH 05/12/2023 @TRANSCATHETER AORTIC VALVE REPLACEMENT (TAVR), PERCUTANEOUS FEMORAL (WRVU 22.47) performed by Alirio Hudson MD at [facility] CATH LABS PRO REPLACEMENT PROSTHETIC AORTIC VALVE OPEN W CARDIOPULMONARY BYPASS HOMOGRF/STENT N/A 09/21/2016 @REPLACE AORTIC VALVE, OPEN, W\CPB, W\PROSTHETIC VALVE (WRVU 41.32) performed by Alirio Hudson MD at [facility] MAIN OR Social History: Patient lives alone. Home Setup: Pt lives on one level with tub shower and three steps to enter. DME: none used BOG WORKER Baseline ADL/Mobility: Independent with ADLs and [...] awareness: WFL Vision & Perception: corrective lenses timekeeping supervisor Communication: WFL Range of motion, strength, coordination: [...] Discharge planning. Total Minutes, Occupational Therapy: 28 (0438-8559) OT Evaluation Code Rationale: Diagnosis & Pertinent Co-Morbidities affecting Plan of Care: see PMHx Occupational Profile & Client History: Brief Expanded Extensive x Assessment of Occupational Performance: 1-3 performance deficits 3-5 performance deficits x 5 + performance deficits Clinical Decision Making: Low Moderate High x Clinical decision making of moderate complexity using standardized patient assessment instrument and measurable assessment of functional outcome. Pager: [phone] TONG MIKE OT 05/20/2023 Occupational Therapy Rehabilitation [...] 0600 and on the weekends please page [phone]. * Rylie Rodriguez MD - 05/19/2023 3:59 [...] and plan. Cynthia Blackburn MD Nephrology Pager: [phone] * Diana Espino - 05/19/2023 1:49 PM EDT Carpenter And Joiner Encounter Note Patient Name: Purnima Thacker : [id number] MR#: [id number] Admit Date: 05/08/2023 9:14 AM Hospital Day [...] Care: 15 Diana Espino 05/19/2023 * Henrik Navarrete, CANDY - 05/19/2023 1:41 PM EDT Physical Therapy [...] as stated. Total Minutes, Physical Therapy: 38 (8636-5414) Henrik Dale CANDY Navarrete Pager: [phone] Physical Therapy Inpatient Rehabilitation Department * Nico [...] 0600 and on the weekends please page [phone]. * Laure Ricks PA - 05/19/2023 7:56 [...] Ricks PA-C Interventional Radiology IR Team Pager [phone] * Consuelo Espinoza RN - 05/18/2023 4:13 PM EDT ANGIO NURSING DATABASE Name: Purnima Thacker Date of : 1955 AGE: 67 y.o. Address: [address] [place] [phone] (home) Mobile: No relevant phone numbers on [...] [facility] 11/09/2022 I25.10 Heart failure with reduced ejection [...] and plan. Cynthia Blackburn MD Nephrology Pager: [phone] * Magdalena Puri, ANURAG - 05/18/2023 10:51 AM EDT Images from the original note were not included. [facility] [place] [address] STRUCTURAL HEART DISEASE CONSULTATION NOTE PRIMARY CARE [...] stenosis. She is now status post TAVR Mgjnf-rh-Tmhth with a 23 mm Lai 3 THV 05/12/[address] Sharma. Preliminary findings: Successful right transfemoral TAVR Gkomz-oc-Jtatp with a 23 mm Lai 3 THV. [...] perforation. Interval Events: - 05/12 Transferred to [facility] post- TAVR for pressor/inotropic support (Levo, [...] [facility] 11/09/2022 Heart failure with reduced ejection fraction [...] mg 81 mg Oral Daily Mara Serrano DECORATOR STORE 81 mg at 05/18/23 0826 ondansetron (pf) (Zofran) (2 mg/mL) injection 4 mg 4 mg Intravenous Q8H PRN Mara Serrano TOREYN4 mg at 05/12/23 0736 pantoprazole EC (Protonix) tablet 40 mg 40 mg Oral Daily Mara SerranoTOREYN 40 mg at 05/18/23 0826 Or pantoprazole (Protonix) injection 40 mg 40 mg Intravenous Daily Mara Serrano DECORATOR STORE 40 mg at 05/12/23 1004 senna-docusate (Pericolace) 8.6-50 mg per tablet 2 tablet 2 tablet Oral Daily Mara Serrano ANURAG 2 tablet at 05/16/232111 bisacodyL (Dulcolax) suppository 10 mg 10 mg Rectal Daily PRN MaggieMara APRN melatonin tablet 6 mg 6 mg Oral Nightly PRN Mara SerranoANURAG 6 mg at 05/17/232024 influenza vaccine adjuvanted [...] ??F) 93 23 106/67 96 % RA 05/17/232009 37.2 ??C (98.9 ??F) 89 10 [...] pleural effusion Cardiogenic shock, recovered Purnima Magalie Kirstie is a 67 y.o. female with [...] stenosis. She is now status post TAVR Yzwpn-en-Oibdt with a 23 mm Lai 3 THV 05/12/[address] Sharma. Janet TAVR case notable for coronary LAD protective MINNA. Status post TAVR, the patient was transferred to [facility] for pressor and inotropic support. Pressors [...] Magdalena Puri APRN Structural Heart Team Pager [phone] Team Office Please see addendum by Dr. Sharma for final plan and recommendations Associated attestation - Antelmo Sharma MD - 05/19/2023 10:52 PM EDT I have reviewed Magdalena Puri APRN's above history and I agree with the details as written. The assessment and plan were formulated in discussion with me and I agree with them as documented. Antelmo Sharma MD Pager [phone] * Nico Palacios PA - 05/18/2023 8:13 [...] prosthetic . #Severe prosthetic AV stenosis s/p Jante TF [...] 0600 and on the weekends please page [phone]. * Loli Hernandez, PT - 05/17/2023 5:27 PM EDT Physical Therapy Note Treatment Number PT: 2 Patient profile: Purnima Thackre is a 67 y.o. female with cardiogenic [...] plan as stated. Time IN / OUT: 5836-7735 Total Minutes, Physical Therapy: 54 Billing Code: te-sx2, te-f, gait LOLI HERNANDEZ PT Pager: [phone] Physical Therapy Inpatient Rehabilitation Department * Cynthia [...] Well controlled. Cynthia Blackburn MD Nephrology Pager: [phone] * Mara Serrano, DECORATOR STORE - 05/17/2023 8:26 AM EDT Cardiac Surgery [...] 0600 and on the weekends please page [phone]. * Guerda Del Valle - 05/16/2023 10:44 AM EDT Nutrition Services Note - Low Nutrition Acuity Purnima Thacker is a 67 y.o. female Reason for intervention: hospital day 9 Nutrition Plan: Continue diet order Encourage good PO Lasix and Zofran noted Added special serve: open containers Monitor weight Patient scheduled for a hospital day 9 nutrition evaluation. Warehouse Operator met with pt at bedside. Pt reports that her appetite and PO has much improved since admission. Denies nausea/vomiting or trouble chewing/swallowing. Warehouse Operator provided snack list but pt not interested in adding snacks at this time. Her only concern was that she is worried that she will eat too much which will cause too much pressure in her stomach. Warehouse Operator assured pt and suggested eating smaller [...] Last Bowel Movement: 05/10/23 Guerda Del Valle Client Service Professional * Vinod Juárez PA - 05/16/2023 10:19 [...] Tubes/Lines/Drains: Art, ROSAURA Assessment/Plan: 67 y.o. female 4 Days Post-Op [...] 0600 and on the weekends please page [phone]. * Michael Jeffers MD - 05/16/2023 8:11 AM EDT Images from the original note were not included. Hypertension-Nephrology Inpatient Follow-up Purnima Thacker [id number] 1955 ID: 67 y.o. old female seen [...] IRONSAT 12 (L) 05/16/2023 SFOLATE >20.0 07/03/2022 [id number] 07/03/2022 Lab Results Component Value Date [...] Dr. Ayoub. Please contact me at phone: [phone] or pager: [phone] with any questions. Michael Jeffers MD Nephrology [...] -Nephrology consulted, labs and renal US ordered -Clyde removed, ambulated around the unit -bilateral pleural [...] 0600 and on the weekends please page [phone]. * Hortencia Cody MD - 05/15/2023 2:07 [...] not included. Hypertension-Nephrology Inpatient Follow-up Purnima Thacker [id number] 1955 ID: 67 y.o. old female seen [...] HGB 7.8 (L) 05/13/2023 SFOLATE >20.0 07/03/2022 [id number] 07/03/2022 Lab Results Component Value Date [...] Dr. Ayoub. Please contact me at phone: [phone] or pager: [phone] with any questions. Michael Jeffers MD Nephrology [...] lb 6.9 oz) Micro: Recent Labs 05/11/23 192 URINECULTURE [...] outlined inthis evaluation. HAVEN BA, PT Pager: [phone] Physical Therapy Inpatient Rehabilitation Department Time IN / OUT: 0433-0747 Total time: Total Minutes, Physical Therapy: 30 [...] 0600 and on the weekends please page [phone]. * Antelmo Sharma MD - 05/14/2023 7:56 AM EDT Images from the original note were not included. [facility] [place] [id number] STRUCTURAL HEART DISEASE CONSULTATION NOTE PRIMARY CARE PROVIDER: Magdalena Acosta MD REFERRING PROVIDER: Mario Alberto H [place] REASON FOR CONSULTATION: Bioprosthetic aortic valve stenosis [...] stenosis. She is now status post TAVR Farno-du-Zrrxd with a 23 mm Lai 3 THV 05/12/[address] Sharma. Preliminary findings: Successful right transfemoral TAVR Klyzl-tz-Dmlwp with a 23 mm Lai 3 THV. [...] [facility] 11/09/2022 Heart failure with reduced ejection fraction [...] stenosis. She is now status post TAVR Auggi-gd-Wmzui with a 23 mm Lai 3 THV 05/12/[address] Sharma. Janet TAVR case notable for coronary LAD protective MINNA. Status post TAVR, the patient was transferred to [facility] for pressor and inotropic support. Pressors weaned overnight 05/12. Cardiac indices by thermodilution remained >3 with continued Milrinone 0.125 mcg/kg/min prior to PAC removal. EKG todayNSR with stable FL/QRS intervals. Hemoglobin slowly down-trending (8.2-> 7.8-> 7.2). [...] days with echo, CBC, and BMP Brody Suyapa ANURAG Kaplan Structural Heart Team Pager [phone] Team Office Please see addendum by Dr. [...] exposure. Nephrology consultationtoday. Antelmo Sharma MD Pager [phone] * Antelmo Cardenas RN - 05/14/2023 5:18 AM EDT Pt AOx4, complaining of mild/moderate generalized pain (states her Meloxicam is effective at home) currently refusing prn oxycodone. NAEON, hemodynamically stable on Milrinone, Maps >65, ST in [id number]'s down to NSR with frequent multifocal PVC's. [...] original note were not included. [facility] [place] [address] [address] STRUCTURAL HEART DISEASE PROGRESS NOTE PRIMARY CARE [...] stenosis. She is now status post TAVR Eqviy-ef-Hzsuh with a 23 mm Lai 3 THV 05/12/[address] Sharma. Preliminary findings: Successful right transfemoral TAVR Bvaoi-to-Xfffp with a 23 mm Lai 3 THV. [...] or perforation. Interval Events: - Transferred to [facility] post- TAVR for pressor/inotropic support (Levo, [...] [facility] 11/09/2022 Heart failure with reduced ejection fraction [...] stenosis. She is now status post TAVR Zznsx-sj-Pmygj with a 23 mm Lai 3 THV 05/12/[address] Sharma. Janet TAVR case notable for coronary LAD protective MINNA. Status post TAVR, the patient was transferred to [facility] for pressor and inotropic support. Pressors weaned overnight. Cardiac indices by thermodilution remain greater than 3 with continued Milrinone 0.125 mcg/kg/min. EKG today NSR with stable FL/QRS intervals. Hemoglobin 7.8 [...] Brody Kaplan APRN Structural Heart Team Pager [phone] Team Office Please see addendum by Dr. [...] DAPT moving forward. Antelmo Sharma MD Pager [phone] * Bonita Miguel PA - 05/13/2023 8:30 AM EDT Cardiac Surgery Progress Note Purnima Thacker is a 67 y.o. 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 PMH of s/p tissue AVR (2017), mixed connective tissue disease HTN, HLD, NICOLAS, diverticulosis, rosacea, essential tremor, and depression. 24h Events: From dairy lab technician for above procedure Extubated at [...] soft b/l, no evidence of hematoma. Tubes/Lines/Drains: Clyde, RIJ, A-line, Art, PIV Assessment/Plan: 67 y.o. [...] 0600 and on the weekends please page [phone]. * Onelia Schwartz MD - 05/12/2023 1:44 [...] [facility] 11/09/2022 Heart failure with reduced ejection fraction [...] FiO2 weaned to 40%. 1105: ABG 7.34/42/73/22 0978-2224: SBT performed and passed on these settings [...] PCP: Magdalena Acosta MD PCP phone number: [phone] Date of Admission: 05/08/2023 ( Hospital Day [...] 1447 PHART -- 7.34* 7.34* -- -- TYL7UBP -- 30* 30* -- -- PO2ART -- 72* 81* -- -- RVN3LVZ -- 16.0* 15.7* -- -- LACTATEVEN 2.4* 2.7* 2.7* 4.8* 2.9* VBG (Venous Blood Gas) Recent Labs 05/12/23 0700 05/12/23 0318 05/12/2310505/11/23193905/11/23 1447 LACTATEVEN 2.4* 2.7* 2.7* 4.8* 2.9* Mixed Venous Sat Recent Labs 05/12/23 0508 05/12/23 0321 05/12/23 0114 05/12/23 0030 [id number] 30.7 32.7 37.3 25.1 Objective: Vitals Last [...] jugular vein (Active) Venous Infusion Patency/Maintenance infusing 05/12/23 020 CVP/CO Port Patency/Maintenance infusing 05/12/23199 PA Port [...] 1.03 -- 1.02 LFTs Recent Labs 05/12/23 0605/12/2310405/11/2344105/10/238 05/09/23 0400 PROT 6.3 6.6 7.2 6.4 [...] who have questions please contact the health administrator health care facility that requested your imaging first. Electronically signed by: ALIX RUVALCABA MD, [facility] ([phone]), at 05/10/2023 1:[address] Cardiac for [...] who have questions please contact the health administrator health care facility that requested your imaging first. Electronically signed by: Cullen Narayanan MD, [facility] ([phone]), at 05/11/2023 4:[address] Angiogram Abdomen [...] who have questions please contact the health administrator health care facility that requested your imaging first. Electronically signed by: Eileen Gomes MD, [facility] ([phone]), at 05/11/2023 2:42 PM XR Chest One [...] who have questions please contact the health administrator health care facility that requested your imaging first. Electronically signed by: Will Rowe MD, [facility] ([phone]), at 05/11/2023 11:57 PM XR Chest One [...] who have questions please contact the health administrator health care facility that requested your imaging first. Electronically signed by: Will Rowe MD, [facility] ([phone]), at 05/12/2023 3:16 AM Assessment & Plan: [...] and inotrope. She is planned for a csjve-lc-vxmtw TAVR this morning, which should hopefully improve [...] MD, FACP, FACC Section of Cardiovascular Medicine [facility] Analysis Internbrand marketing specialist [facility] of Medicine at [facility] * Noreen Deutsch RN - 05/12/2023 5:21 [...] [facility] 11/09/2022 Heart failure with reduced ejection fraction [...] 05/11/2023 4:11 PM EDT Reported off to VOLUMETRIC WEIGHER and pt transferred over in the bed for higher level of care. * Antelmo Sharma MD - 05/11/2023 9:45 AM EDT Images from the original note were not included. [facility] [place] [id number] STRUCTURAL HEART DISEASE CONSULTATION NOTE PRIMARY CARE [...] who had been referred for possible TAVR gdmwx-cy-buqmq evaluation. Her primary symptoms are of dyspnea [...] [facility]. 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 [...] [facility] 11/09/2022 Heart failure with reduced ejection fraction [...] hour(s)) Lactate, whole blood, send to lab ([facility]) Result Value Ref Range Lactate WB 3.1 (H) 0.5 - 2.2 mmol/L Heparin (unfractionated) Level Result Value Ref Range Heparin UFH Level 0.46 IU/mL Lactate, whole blood, send to lab ([facility]) Result Value Ref [...] leads Confirmed by MD Harshil, Enrique Bell ([id number]) on 05/10/2023 8:11:46 AM Cardiac Cath 11/09/2022 [...] to decompensating HFrEF, she was transferred to [facility] this afternoon for further management. TAVR CT imaging support for adequate ileofemoral access. Given her acute deterioration today, will planfor RTF TAVR on 05/12/2023. Brody KaplanANURAG Structural Heart Disease Pager [phone] Please see addendum by Dr. Sharma for [...] signed and dated. Antelmo Sharma MD Pager [phone] * Harini Lance MD - 05/11/2023 6:06 AM EDT Images from the original note were not included. Cardiology Progress Note Patient info: Name: Purnima Thacker : 1955 PCP: Magdalena Acosta MD PCP phone number: [phone] Date of Admission: 05/08/2023 ( Hospital Day 3 days ) Attending:Juan Luis Goznalez MD ID: Purnima Thacker is a 67 [...] who have questions please contact the health administrator health care facility that requested your imaging first. Electronically signed by: ALIX RUVALCABA MD, [facility] ([phone]), at 05/10/2023 1:25 PM TTE: 05/08 -Left [...] [facility] 11/09/2022 Hyperlipidemia, unspecified NICOLAS (obstructive sleep apnea) [...] PCP: Magdalena Acosta MD PCP phone number: [phone] Date of Admission: 05/08/2023 ( Hospital Day [...] [facility]/09/2022 Hyperlipidemia, unspecified NICOLAS (obstructive sleep apnea) [...] PCP: Magdalena Acosta MD PCP phone number: [phone] Date of Admission: 05/08/2023 ( Hospital Day [...] swelling;no redness 05/08/231999 Labs: Recent Labs 05/09/23 04005/08/23 1138 WBC 6.4 4.1 HGB 10.2* 10.2* [...] Gas) No results found for: PHART, PO2ART, YRE1QRT, CKI6ZPD Microbiology: Microbiology Results (Last 30 days) No [...] PPx: Diet: Daily Healthy Menu Choices/Cardiac diet ([facility]-Diet) Lines: Peripheral IV Line [...] [facility] 11/09/2022 Hyperlipidemia, unspecified NICOLAS (obstructive sleep apnea) [...] [facility] 11/09/2022 I25.10 Heart failure with reduced ejection fraction due to heart valve disease I50.20, I38 Cardiogenic shock R57.0 S/P TAVR (transcatheter aortic valve replacement) Z95.2 Past Medical History: Diagnosis Date Anemia Past Surgical History: Procedure Laterality Date PRG CATH PLMT LEFT HEART CATH & ARTS W/INJ & ANGIO IMG S&I N/A 11/09/2022 CORONARY ANGIOGRAPHY; W [facility],POSSIBLE PCI (WRVU 5.6) performed by Mario Alberto Escobedo MD at [facility] CATH LABS PRO AORTOPLAS FOR SUPRAVALV STEN N/A 09/21/2016 @AORTOPLASTY FOR SUPRAVALVULAR STENOSIS (WRVU 29.33) performed by Alirio Hudson MD at [facility] MAIN OR PRO REPLACEMENT PROSTHETIC AORTIC VALVE OPEN W CARDIOPULMONARY BYPASS HOMOGRF/STENT N/A 09/21/2016 @REPLACE AORTIC VALVE, OPEN, W\CPB, W\PROSTHETIC VALVE (WRVU 41.32) performed by Alirio Hudson MD at [facility] MAIN OR Social History and Habits: [...] hr Take 180 mg by mouth daily. [employer] Verio test strips Strip USE DAILY OneTouch [...] [facility] 11/09/2022 I25.10 Heart failure with reduced ejection fraction due to heart valve disease I50.20, I38 Cardiogenic shock R57.0 S/P TAVR (transcatheter aortic valve replacement) Z95.2 Past Medical History: Diagnosis Date Anemia Past Surgical History: Procedure Laterality Date PRG CATH PLHI LEFT HEART CATH & ARTS W/INJ & ANGIO IMG S&I N/A 11/09/2022 CORONARY ANGIOGRAPHY; W C,POSSIBLE PCI (WRVU 5.6) performed by Mario Alberto Escobedo MD at [facility] CATH LABS PRO AORTOPLAS FOR SUPRAVALV STEN N/A 09/21/2016 @AORTOPLASTY FOR SUPRAVALVULAR STENOSIS (WRVU 29.33) performed by Alirio Hudson MD at [facility] MAIN OR PRO REPLACEMENT PROSTHETIC AORTIC VALVE OPEN W CARDIOPULMONARY BYPASS HOMOGRF/STENT N/A 09/21/2016 @REPLACE AORTIC VALVE, OPEN, W\CPB, W\PROSTHETIC VALVE (WRVU 41.32) performed by Alirio Hudson MD at [facility] MAIN OR Social History and Habits: [...] Hgb 10.5 CMP - Cr 1.1 BNP 96168 HsTrop 1358 Lactate 1.6 D-dimer 1183 Interval [...] Code Status: Attempt Cardiopulmonary Resuscitation - Inpatient Rudolphluiz Reid MD Internal Medicine PGY-1 Pager [phone], M1-S1 Service Associated attestation - Juan Luis Gonzalez MD - 05/08/2023 10:00 PM EDT Cardiology Attending Addendum Active Hospital Problems Diagnosis Symptomatic severe aortic stenosis with low ejection fraction Heart failure with reduced ejection fraction due to heart valve disease Mild coronary artery disease by [facility] 11/09/2022 Hyperlipidemia, unspecified History of aortic valve replacement Resolved Hospital Problems No resolved problems to display. I have interviewed and examined the patient, reviewed the available data, and have discussed my findings, assessment and plan with the patient and the team on admission to S2 service (from [facility] service) today. I agree with Dr. [...] PCP: Magdalena Acosta MD PCP phone number: [phone] Date of Admission: 05/08/2023 ( Hospital Day [...] Hgb 10.5 CMP - Cr 1.1 BNP 52225 HsTrop 1358 Lactate 1.6 D-dimer 1183 Vasoactive [...] #Routine Diet: Daily Healthy Menu Choices/Cardiac diet ([facility]-Diet) DVT Prophylaxis: heparin gtt [...] to the planned procedure. Hand Hygiene: The hvac installer did perform hand hygiene prior to arterial [...] Successful arterial line placement. Crispin Timmons MD Gymnastics Coach Associated attestation - Onelia Schwartz MD - [...] (flow was non-pulsatile) and appearance of blood. Clyde-Marily catheter was placed and locked at 55 [...] information for follow-up [facility] [address] [place] [address] Cardiac Rehab, [address] [place] [address] [facility] [address] [place] [address] Transportation: family or friend will provide *Brother [...] Type: *No Product type* / Secondary Insurance: [employer] [place] Prescription Coverage: Yes This plan was formulated with input from patient, family (please identify family/friend involved ifapplicable) and team. All are in agreement with plan. Aliza Martino MSN-Ed, RN ACM batting machine operator Office of Care Management Pager #[phone] * Plan of Care - Favian Mckeon [...] Chaudhary RN - 05/21/2023 4:46 PM EDTSummary: [facility] referral OFFICE OF CARE MANAGEMENT [...] Type: *No Product type* / Secondary Insurance: [employer] [place] Last Physical Therapy Recommendation: (Home with assist [...] needs. describing our affiliations within the [facility] and educate about their right to choose where referrals are sent. provide a list of Home Health Agencies / Durable Medical Equipment vendors which serve their preferred geographic area. They have requested referrals to: [facility] [address] [place] [id number] [facility] Care [facility]ated [facility] Note routed to a Obiee Architect who will communicate referrals to facilities and provide any required information. Transportation: family or friend will provide *Brother Raymond on Tuesday 05/22 at 1000 Barriers to discharge: Does not have home 22/02 assist available until tomorrow Tuesday 05/22 Plan going forward: Discharge home into the 22/02 home care of brother Raymond with [facility] and [facility] PT/OT services on Tuesday 05/22 [...] Attending: All Staff: Staff Role Juanita Almaguer Agency Sales Development Associate Laure Ricks PA Physician Menhaden Fishing Crew Member Magdalena Rodriguez j2ee application developer Nurse Consuelo Espinoza j2ee application developer Nurse Post-operative diagnosis/Indication: Right pleural effusion [...] Type: *No Product type* / Secondary Insurance: [employer] [facility] [place] Last Physical Therapy Recommendation: assisted facility, [...] to: discuss discharge planning needs. provide the [facility], Office of Care Management letter from the Bankruptcy Processor pertaining to rehab referrals. provide a letter describing our affiliations within the [facility] and educate about their right to choose where referrals are sent. provide the CMS Star Quality Rating handout. review the different levels of rehab including SNF, swing, and acute. provide a list of facilities within their preferred geographic area. request that they provide at least three choices for referral. They have requested referrals to: [facility] [address] [place] [address] [facility] ([facility]) [address] [place] [address] (Accepts pts only after exhausting all other local SNF options) [facility] (Swing) ([facility]) [address] [place] [address] PHONE: [phone] FAX: [phone] [facility] [place] ([facility]) ([facility]) [address] [place] [place] [address] PHONE: [phone] FAX: [phone] Note routed to a Obiee Architect who will communicate referrals to facilities and [...] Crenshaw RN - 05/17/2023 10:25 AM EDT [facility] [...] from the original note were not included. [facility] NEPHROLOGY/HYPERTENSION CONSULT NOTE PATIENT: Purnima [...] in her course. She ultimately underwent a xqjya-ot-lwyrm procedure on and tolerated it well (see [...] 186 Chemistry: Recent Labs 05/14/2310905/13/2311405/12/23 1405 05/12/23 06 NA 132* 132* -- 131* K 4.1 [...] 1423 05/12/23 1105 PHART 7.39 7.37 7.34* LSJ3OYU 33* 36 42 PO2ART 101 102 73* CTS3RKX 19.5* 20.4 22.1 LACTATEVEN 1.5 1.8 2.8* VCP8UMP 40 40 40 PFRATIOART2 252 255 182 VBG (Venous Blood Gas) Recent Labs 05/12/23 1557 05/12/23 1423 05/12/23 1105 LACTATEVEN 1.5 1.8 2.8* Mixed Venous Sat Recent Labs 05/12/23 1425 05/12/23 0508 05/12/23 0321 N1TUTF2 59.9 30.7 32.7 LFT's: Recent Labs 05/14/23 0110 05/13/23 0115 05/12/23 0600 BILITOT 0.4 0.5 0.9 BILIDIR -- 0.3 -- ALBUMIN 3.6 3.0* 3.5 ALKPHOS 86 85 100 ALT 437* 903* 1,174* AST 319* 792* 1,435* No results found for: UPROTCREAT No results found for: TPROTEINPEP, ALBELECT No results found for: MICROALBUR, MJEI39MCO No results found for: HA1C Lab Results Component Value Date CALCIUM 8.5 05/14/2023 PHOS 4.7 (H) 05/08/2023 No results found for: 25OHVITD MICROBIOLOGY: ProcedureComponentValueUnitsDate/TimeUrine culture [[id number]]Collected: 05/11/231921Lab Status: Final resultSpecimen: Clean Catch UrineUpdated: [...] consulted for assessment if this patient needs DATA MANAGEMENT CONSULTANT. Atthis time, we can likely hold off on DATA MANAGEMENT CONSULTANT. Her volume status appears sufficient and her metabolic kanwal angements with mild acidosis is not too profound. Patient does not have significant uremic symptoms. We can hold off for today, but the patient is a high risk candidate for needing DATA MANAGEMENT CONSULTANT in future daysespecially if her Cr curve trends the direction it is for the next several days. S/p Vsvkn-cz-Mplst TF TAVR: Management per cardiology. On milrinone gtt. PLAN: - Please obtain following diagnostics: renal US, urinalysis, urine prot/Cr ratio, urine albumin/Cr ratio, CK, uric acid, serum osmol, daily VBGs - No acute indications for DATA MANAGEMENT CONSULTANT/dialysis. We will keep close eye on Cr trend, volume status, and metabolics to ensure patient still does not need DATA MANAGEMENT CONSULTANT as she ensues intrinsic renal recovery - [...] M.H.A., M.A. PGY-V Nephrology-Hypertension Fellow Page # [phone] [facility] [address] 2nd floor, It Help Desk Associate [address] [place] [address] * Care Management - Mario Alberto Olmos [...] *No Product type* / Secondary Insurance: [facility] Plan for discharge is: Home [...] for a TAVR at 730. Returned to [facility] at 0945. Was intubated in the dairy lab technician due to agitation. Maintained bedrest [...] Operative Note Patient Name: Purnima Thacker : [id number] MR#: [id number] Case Date: 05/12/2023 Surgeon: Surgeon(s) and Role: [...] procedure Note: Patient Name: Purnima Thacker : [id number] MR#: [id number] Case Date: 05/12/2023 Operators Surgeon: Surgeon(s) and [...] main with 4.0 x 30 mm Resolute Craven Drug Eluting Stent Perclose x1 + Angio-seal 8 Fr x1, RFA Manual pressure, LFA Manual pressure, LFV Endotracheal intubation (performed by cardiac anesthesia) Preliminary findings: Successful right transfemoral TAVR Zsqmr-le-Vdeur with a 23 mm Lai 3 THV. [...] MD, M.Sc. Structural Heart Disease Fellow Pager :[phone] Antelmo Sharma MD Pager [phone] * Op Note - Alirio Hudson MD - 05/12/2023 7:37 AM EDT Preop Diagnosis: Severe aortic stenosis, symptomatic. Postop Diagnosis: Same. Procedure: Transfemoral TAVR procedure with 23mm valve. Surgeon: Alirio Hudson M.D. Employee Communications Intern: Danny CULP Procedure: The patient was taken to the dairy lab technician. The patient had monitored anesthesia [...] Brody Kaplan APRN Structural Heart Disease Pager [phone] * Consult Note - Vinod Juárez PA - 05/11/2023 2:16 PM EDT Cardiac Surgery Consultation Note Purnima Thacker is seen at the request of Dr. Hollins for the evaluation of prosthetic . HPI: Purinma Thacker is a 67 y.o. 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 [facility] [place] [id number] STRUCTURAL HEART DISEASE CONSULTATION NOTE PRIMARY CARE [...] who had been referred for possible TAVR dkufl-fc-xylyj evaluation. Her primary symptoms are of dyspnea [...] [facility]. 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 [...] [facility] 11/09/2022 Heart failure with reduced ejection fraction [...] hour(s)) Lactate, whole blood, send to lab ([facility]) Result Value Ref [...] leads Confirmed by MD Harshil, Enrique Bell ([id number]) on 05/10/2023 8:11:46 AM Assessment and Plan: [...] Antelmo Sharma MD Structural Heart Disease Pager [phone] * Plan of Care - Sarahi Nice RN - 05/10/2023 3:55 AM EDTSumcaydeny: VALDO Note and Care Plan Sarahi Nice RN assumed care of pt at time of their arrival to room 362 from [facility]. Pt voices shortness of breath at [...] 180 days) Any patient receiving care in [place] must abide by [place] law. The hierarchy [...] Current DME: none Home Address confirmed as: [address] [place] [id number] Social & Family Supports: All names listed [...] Type: *No Product type* / Secondary Insurance: [employer] [facility] [place] ONLY if patient has Medicare A&B - Does this patient have secondary insurance?: Yes ; Prescription Coverage: Yes Preferred Pharmacy: updated to [facility] Status: Patient is a : No Primary Care Provider confirmed: Magdalena Acosta MD [phone] Patient/Caregiver Goals of Treatment: Potential Needs for [...] of care planning. Alie Bradshaw RN, CM Pager-[phone] * Plan of Care - Emily Lucero [...] PM EDT Hospital Encounter [place] [phone] Markel Borjas MD [facility] [address] H[place] [address] 05/29/2024 2:00 PM EDT - 05/29/2024 2:43 PM EDT Surgery [place] [address] Markel Borjas MD [facility] [place] [address] (OSC MSURG) BONE MARROW BIOPSY AND ASPIRATION; DIAGNOSTIC (WRVU 1.44) 06/23/2024 2:00 PM EST Office Visit Hematology [place] [phone] Markel Borjas MD [facility] [address] HEMATOLOGY [place] [address] 03/01/2025 4:15 PM EDT Office Visit Dermatology at [place] [address] [place] [address] Marek Bonilla MD [address] [place] [address] Scheduled Procedures Name Priority Associated Diagnoses Date/Ti [...] Heart Cath W/Inj L Ventriculography, Img S&I (60362) 05/12/2023 7:37 AM EDT Aortic valve stenosis, [...] AM EST Narrative 07/08/2023 12:26 PM EST [address] [place] [address] ? Echocardiogram Report Name: PURNIMA THACKER ?Study Date: 07/08/2023 10:31 AMBP: 118/60 mmHg ? Patient Location: 4A : 1955 ? Height: 155 cm ? Account: [id number] Age: 67 yrs ? Weight: 74 kg Gender: Female ?BSA: 1.7 m2 Ordering Physician: ALIRIO HUDSON Referring Physician: VINOD JUÁREZ Performed By: Felicia Norris RDCS Reason For Study: S/P TAVR Exam Location: [facility]. Interpretation Summary Left ventricular systolic [...] no significant change (post-procedure). Procedure Limited - 16330. Doppler - 52728. Color Doppler - 71000. Satisfactory quality. This study is limited because [...] Note Lee Kincaid MD - 07/08/2023 [address] [place] [address] Echocardiogram Report Name: PURNIMA THACKER Study Date: 0:31 AMBP: 118/60 mmHg Patient Location: : 1955 Height: 155 cm Account: [id number] Age: 67 yrs Weight: 74 kg Gender: Female BSA: 1.7 m2 Ordering Physician: ALIRIO HUDSON Referring Physician: VINOD JUÁREZ Performed By: Felicia Norris RDCS Reason For Study: S/P TAVR Exam Location: [facility]. Interpretation Summary Left ventricular systolic [...] is nosignificant change (post-procedure). Procedure Limited - 33408. Doppler - 83428. Color Doppler - 08381. Satisfactoryquality. This study is limited because of [...] EST) Glucose 93 65 - 199 mg/dL [facility] Comment:Diabetes: >=200 mg/d L plus symptoms Blood Urea Nitrogen 19(H) 8 - 18 mg/dL [facility] Creatinine 0.81 0.70 - 1.20 mg/dL [facility] Sodium 142 135 - 145 mmol/L [facility] Potassium 3.8 3.5 - 5.0 mmol/L [facility] Comment: Please note: ??Patients with WBC >100,000 may have falsely elevated Potassium levels. ??For accurate Potassium quantification in these patients send serum separator tube (gold top) for subsequent determinations. ??Contact the Clinical Chemistry Laboratory if there are any questions. Chloride 104 98 - 107 mmol/L [facility] Carbon Dioxide 26 22 - 31 mmol/L [facility] Anion Gap 12 5 - 15 mmol/L [facility] Calcium 10.2 8.5 - 10.5 mg/dL [facility] Protein, Total 7.4 6.1 - 8.0 g/dL [facility] Albumin 4.1 3.2 - 5.2 g/dL [facility] Aspartate Aminotransferase 24 0 - 30 unit/L [facility] Alanine Aminotransferase 12 0 - 30 unit/L [facility] Alkaline Phosphatase 93 35 - 105 unit/L [facility] Bilirubin, Total 0.3 0.2 - 1.3 mg/dL [facility] Est Glomerular Filtration Rate 80 >=60 mL/min/1. 73 m?? [facility] Comment: This patient's estimated GFR [...] Lab Alirio Hudson MD CHEMISTRY ORDERABLE S [facility] [place] [place] [address] * (ABNORMAL) Basic Metabolic Panel (non-fasting) (05/22/2023 3:57 AM EDT) Glucose 88 65 - 199 mg/dL [facility] Comment:Diabetes: >=200 mg/d L plus symptoms Blood Urea Nitrogen 21(H) 8 - 18 mg/dL [facility] Creatinine 0.69(L) 0.70 - 1.20 mg/dL [facility] Sodium 136 135 - 145 mmol/L [facility] Potassium 3.6 3.5 - 5.0 mmol/L [facility] Comment: Please note: ??Patients with WBC >100,000 may have falsely elevated Potassium levels. ??For accurate Potassium quantification in these patients send serum separator tube (gold top) for subsequent determinations. ??Contact the Clinical Chemistry Laboratory if there are any questions. Chloride 102 98 - 107 mmol/L [facility] Carbon Dioxide 23 22 - 31 mmol/L [facility] Anion Gap 11 5 - 15 mmol/L [facility] Calcium 8.6 8.5 - 10.5 mg/dL [facility] Est Glomerular Filtration Rate 95 >=60 mL/min/1. 73 m?? [facility] Comment: This patient's estimated GFR [...] Agency Comment Spec In Lab Mara Thomasfield DECORATOR STORE CHEMISTRY ORDERABL ES [facility] [place] [address] * (ABNORMAL) Basic Metabolic Panel (non-fasting) (05/21/2023 5:06 AM EDT) Glucose 87 65 - 199 mg/dL [facility] Comment:Diabetes: >=200 mg/d L plus symptoms Blood Urea Nitrogen 25(H) 8 - 18 mg/dL [facility] Creatinine 0.84 0.70 - 1.20 mg/dL [facility] Sodium 136 135 - 145 mmol/L [facility] Potassium 3.6 3.5 - 5.0 mmol/L [facility] Comment: Please note: ??Patients with WBC >100,000 may have falsely elevated Potassium levels. ??For accurate Potassium quantification in these patients send serum separator tube (gold top) for subsequent determinations. ??Contact the Clinical Chemistry Laboratory if there are any questions. Chloride 102 98 - 107 mmol/L [facility] Carbon Dioxide 26 22 - 31 mmol/L [facility] Anion Gap 8 5 - 15 mmol/L [facility] Calcium 8.9 8.5 - 10.5 mg/dL [facility] Est Glomerular Filtration Rate 76 >=60 mL/min/1. 73 m?? [facility] Comment: This patient's estimated GFR [...] Narrative Resulting Agency Comment Spec In Lab [facility] DECORATOR STORE CHEMISTRY ORDERABL ES Performing Organization Address [facility] Co de Phone Number [facility] [place] [address] * Lavender Tube HOLD (05/20/2023 2:52 AM EDT) Lavender Hold Sample in lab. [facility] Blood Venous Draw / Unknown 05/20/2023 2:52 AM EDT 05/20/2023 3:04 AM EDT [facility] DECORATOR STORE HEMATOLOGY ORDERAB LES Performing Organization Address City/[facility] Co de Phone Number [facility] [place] [address] * (ABNORMAL) Basic Metabolic Panel (non-fasting) (05/20/2023 2:52 AM EDT) Glucose 152 65 - 199 mg/dL [facility] Comment:Diabetes: >=200 mg/d L plus symptoms Blood Urea Nitrogen 33(H) 8 - 18 mg/dL [facility] Creatinine 0.82 0.70 - 1.20 mg/dL [facility] Sodium 137 135 - 145 mmol/L [facility] Potassium 3.7 3.5 - 5.0 mmol/L [facility] Comment: Please note: ??Patients with WBC >100,000 may have falsely elevated Potassium levels. ??For accurate Potassium quantification in these patients send serum separator tube (gold top) for subsequent determinations. ??Contact the Clinical Chemistry Laboratory if there are any questions. Chloride 99 98 - 107 mmol/L [facility] Carbon Dioxide 22 22 - 31 mmol/L [facility] Anion Gap 16(H) 5 - 15 mmol/L [facility] Calcium 9.0 8.5 - 10.5 mg/dL [facility] Est Glomerular Filtration Rate 78 >=60 mL/min/1. 73 m?? [facility] Comment: This patient's estimated GFR [...] Agency Comment Spec In Lab Mara Serrano DECORATOR STORE CHEMISTRY ORDERABL ES [facility] [place] [address] * (ABNORMAL) Potassium (05/20/2023 2:52 AM EDT) Potassium 3.4(L) 3.5 - 5.0 mmol/L [facility] Comment: Please note: ??Patients [...] Lab Mara Serrano APRN CHEMISTRY ORDERABL ES [facility] [place] [address] * XR Chest PA & Lateral (Generic) [...] who have questions please contact the health administrator health care facility that requested your imaging first. ? Narrative [...] patients who have questions please contactthe health administrator health care facility that requested your imaging first. Electronically signed by: Chyna Johnson MD, [facility]([phone]), at 05/19/2023 2:19 PM Alirio Hudson MD IMG DX ORDERABLES * (ABNORMAL) Basic Metabolic Panel (non-fasting) (05/19/2023 5:49 AM EDT) Glucose 93 65 - 199 mg/dL [facility] Comment:Diabetes: >=200 mg/d L plus symptoms Blood Urea Nitrogen 45(H) 8 - 18 mg/dL [facility] Creatinine 1.02 0.70 - 1.20 mg/dL [facility] Sodium 138 135 - 145 mmol/L [facility] Potassium 3.9 3.5 - 5.0 mmol/L [facility] Comment: Please note: ??Patients with WBC >100,000 may have falsely elevated Potassium levels. ??For accurate Potassium quantification in these patients send serum separator tube (gold top) for subsequent determinations. ??Contact the Clinical Chemistry Laboratory if there are any questions. Chloride 102 98 - 107 mmol/L [facility] Carbon Dioxide 26 22 - 31 mmol/L [facility] Anion Gap 10 5 - 15 mmol/L [facility] Calcium 9.7 8.5 - 10.5 mg/dL [facility] Est Glomerular Filtration Rate 60 >=60 mL/min/1. 73 m?? [facility] Comment: This patient's estimated GFR [...] Agency Comment Spec In Lab Mara Maggie DECORATOR STORE CHEMISTRY ORDERABL ES [facility] [place] [address] * IR Chest Tube Placement Right (05/18/2023 [...] Kristopher Salgado MD 05/18/2023 Alirio Hudson MD [facility] IR ORDERABLES * (ABNORMAL) Basic Metabolic Panel (non-fasting) (05/18/2023 2:54 AM EDT) Glucose 95 65 - 199 mg/dL [facility] Comment:Diabetes: >=200 mg/d L plus symptoms Blood Urea Nitrogen 71(H) 8 - 18 mg/dL [facility] Comment:result rechecked-[facility] Creatinine 1.64(H) 0.70 - 1.20 mg/dL [facility] Comment:result rechecked-[facility] Sodium 137 135 - 145 mmol/L [facility] Potassium 3.7 3.5 - 5.0 mmol/L [facility] Comment: Please note: ??Patients with WBC >100,000 may have falsely elevated Potassium levels. ??For accurate Potassium quantification in these patients send serum separator tube (gold top) for subsequent determinations. ??Contact the Clinical Chemistry Laboratory if there are any questions. Chloride 100 98 - 107 mmol/L [facility] Carbon Dioxide 24 22 - 31 mmol/L [facility] Anion Gap 13 5 - 15 mmol/L [facility] Calcium 9.7 8.5 - 10.5 mg/dL [facility] Est Glomerular Filtration Rate 34(L) >=60 mL/min/1. 73 m?? [facility] Comment: This patient's estimated GFR [...] Lab Mara Serrano APRN CHEMISTRY ORDERABL ES [facility] [place] [address] * XR Chest PA & Lateral (Generic) [...] who have questions please contact the health administrator health care facility that requested your imaging first. ? Electronically signed by: Ghassan Reyes MD, [facility] ??([phone]), at 05/17/2023 11:46 AM Narrative 05/17/2023 11:46 [...] patients who have questions please contactthe health administrator health care facility that requested your imaging first. Electronically signed by: Ghassan Reyes MD, [facility]([phone]), at 05/17/2023 11:46 AM Alirio Hudson MD IMG DX ORDERABLES * (ABNORMAL) Comprehensive metabolic panel (non-fasting) (05/17/2023 4:35 AM EDT) Glucose 89 65 - 199 mg/dL [facility] Comment:Diabetes: >=200 mg/d L plus symptoms Blood Urea Nitrogen 97(H) 8 - 18 mg/dL [facility] Creatinine 2.97(H) 0.70 - 1.20 mg/dL [facility] Comment:result rechecked-JSJ Sodium 135 135 - 145 mmol/L [facility] Potassium 4.1 3.5 - 5.0 mmol/L [facility] Comment: Please note: ??Patients with WBC >100,000 may have falsely elevated Potassium levels. ??For accurate Potassium quantification in these patients send serum separator tube (gold top) for subsequent determinations. ??Contact the Clinical Chemistry Laboratory if there are any questions. Chloride 97(L) 98 - 107 mmol/L [facility] Carbon Dioxide 22 22 - 31 mmol/L [facility] Anion Gap 16(H) 5 - 15 mmol/L [facility] Calcium 9.6 8.5 - 10.5 mg/dL [facility] Protein, Total 6.5 6.1 - 8.0 g/dL [facility] Albumin 3.7 3.2 - 5.2 g/dL [facility] Aspartate Aminotransferase 58(H) 0 - 30 unit/L [facility] Alanine Aminotransferase 66(H) 0 - 30 unit/L [facility] Alkaline Phosphatase 86 35 - 105 unit/L [facility] Bilirubin, Total 0.6 0.2 - 1.3 mg/dL [facility] Est Glomerular Filtration Rate 17(L) >=60 mL/min/1. 73 m?? [facility] Comment: This patient's estimated [...] MD CHEMISTRY ORDERABLE S Performing Organization Address [facility] de Phone Number [facility] [place] [address] * Potassium (05/16/2023 11:15 PM EDT) Potassium 3.7 3.5 - 5.0 mmol/L [facility] Comment: Please note: ??Patients with [...] MD CHEMISTRY ORDERABLE S Performing Organization Address [facility] Co de Phone Number [facility] [place] [address] * Magnesium (05/16/2023 5:22 PM EDT) Magnesium 0.96 0.69 - 1.07 mmol/L [facility] Blood 05/16/2023 5:22 PM EDT 05/16/2023 5:27 PM EDT Narrative Resulting Agency Comment Spec In Lab Alirio Hudson MD CHEMISTRY ORDERABLE S [facility] [place] [address] * (ABNORMAL) Basic Metabolic Panel (non-fasting) (05/16/2023 5:22 PM EDT) Glucose 106 65 - 199 mg/dL [facility] Comment:Diabetes: >=200 mg/d L plus symptoms Blood Urea Nitrogen 103(H) 8 - 18 mg/dL [facility] Creatinine 3.91(H) 0.70 - 1.20 mg/dL [facility] Comment:result rechecked-imm Sodium 132(L) 135 - 145 mmol/L [facility] Potassium 3.6 3.5 - 5.0 mmol/L [facility] Comment: Please note: ??Patients with WBC >100,000 may have falsely elevated Potassium levels. ??For accurate Potassium quantification in these patients send serum separator tube (gold top) for subsequent determinations. ??Contact the Clinical Chemistry Laboratory if there are any questions. Chloride 92(L) 98 - 107 mmol/L [facility] Carbon Dioxide 22 22 - 31 mmol/L [facility] Anion Gap 18(H) 5 - 15 mmol/L [facility] Calcium 9.7 8.5 - 10.5 mg/dL [facility] Est Glomerular Filtration Rate 12(L) >=60 mL/min/1. 73 m?? [facility] Comment: This patient's estimated GFR [...] HEALTH CARE SERVICES Co de Phone Number [facility] [place] [address] * (ABNORMAL) Potassium (05/16/2023 11:43 AM EDT) Potassium 3.3(L) 3.5 - 5.0 mmol/L [facility] Comment: Please note: ??Patients with [...] ORDERABLE S Performing Organization Address [facility] Co de Phone Number [facility] [address] * (ABNORMAL) Ferritin (05/16/2023 4:41 AM EDT) [facility] Ferritin 1,813(H) 30 - 400 ng/mL [facility] Comment: Pediatric reference ranges not verified at [facility], interpret with caution. Reference ranges for females greater than 50 years of age approach values for men, i.e., 30-400 ng/mL. Blood 05/16/2023 4:41 AM EDT 05/16/2023 4:54 AM EDT Narrative Resulting Agency Comment Spec In Lab Kristopher Ayoub MD CHEMISTRY ORDERABLES Performing Organization Address [facility] Co de Phone Number [facility] [place] [address] * (ABNORMAL) PTH (05/16/2023 4:41 AM EDT) Pathologist [facility] Parathyroid Hormone 120(H) 15 - 65 pg/mL [facility] Blood 05/16/2023 4:41 AM EDT 05/16/2023 4:54 AM EDT Narrative Resulting Agency Comment Spec In Lab Kristopher Ayoub MD CHEMISTRY ORDERABLES [facility] [place] [address] * Vitamin D, 25-Hydroxy (05/16/2023 4:41 AM EDT) Vitamin D Total 25 OH 33 21 - 100 ng/mL [facility] Vit D Interp Sufficient [facility] Blood 05/16/2023 4:41 AM EDT 05/16/2023 4:54 AM EDT Narrative Resulting Agency Comment Spec In Lab Kristopher Ayoub MD CHEMISTRY ORDERABLES Performing Organization Address [facility] Co de Phone Number [facility] [place] [address] * (ABNORMAL) Blood Gas Venous ([facility]) (05/16/2023 4:22 AM EDT) pH, Venous 7.41 7.32 - 7.42 [facility] PCO2, Venous 32(L) 41 - 51 mmHg [facility] PO2, Venous 73(H) 25 - 40 mmHg [facility] Bicarbonate, Venous 19.6 mmol/L [facility] Base Excess, Venous -5.1 mmol/L [facility] Hgb Blood Gas 9.7(L) 11.7 - 15.5 g/dL [facility] Oxyhemoglobin, Venous 92.8 % [facility] Carboxyhemoglob in, Venous 0.1 % [facility] Comment: Nonsmokers: 0.5-1.5% COHB Smokers: Variable, but usually less than 10% Toxic: 20-30% COHB Lethal: Greater than 60% COHB Methemoglobin, Venous 0.3 <=1.5 % [facility] Na Whole Blood 130(L) 135 - 145 mmol/L [facility] K Whole Blood 3.7 3.5 - 5.0 mmol/L [facility] Comment: Please note: Patients with WBC >100,000 may have falsely elevated Potassium levels. Contact the Clinical Chemistry Laboratory if there are any questions. ICa Whole Blood 1.15 1.15 - 1.33 mmol/L [facility] Comment: Note: ??Total bilirubin higher than 20 mg/dL may lead to falsely low ionized calcium. CL Whole Blood 95(L) 98 - 107 mmol/L [facility] Gluc Whole Bld 82 65 - 199 mg/dL [facility] Comment:Diabetes: >=200 mg/d L plus symptoms Lactate WB 1.1 0.5 - 2.2 mmol/L [facility] Blood Gas Source Venous [facility] Blood Venous Draw / Unknown 05/16/2023 4:22 AM EDT 05/16/2023 4:31 AM EDT Narrative Resulting Agency Comment Spec In Lab Bonita TOBAR CHEMISTRY ORDERABLES Performing Organization Address City/State/[facility] Co de Phone Number [facility] [place] [address] * (ABNORMAL) Differential, Automated (05/16/2023 4:20 AM EDT) Neutrophil % 84.1 % [facility] Neutrophil Absolute 6.22(H) 1.70 - 6.10 x10(3)/mc L [facility] Lymph % 5.8 % [facility] Lymphocytes Abs 0.4(L) 0.9 - 3.2 x10(3)/mc L [facility] Monocyte % 8.8 % [facility] Monocyte Abs 0.6 0.3 - 0.9 x10(3)/mc L [facility] Eos % 0.4 % [facility] Eosinophils Abs 0.0 0.0 - 0.4 x10(3)/mc L [facility] Basophil % 0.0 % [facility] Baso Absolute 0.0 0.0 - 0.1 x10(3)/mc L [facility] Immature Gran % 0.90 % [facility] Comment: Immature granulocytes(IG's)percentage and absolute count will include metamyelocytes, myelocytes, and promyelocytes. Blood smears from CBCs yielding IG's will be scanned manually for concordance. If this scan disagrees with the automated IG or if promyelocytes are noted, a manual differential will be performed. Immature Gran Absolute 0.07(H) 0.00 - 0.04 x10(3)/mc L [facility] Blood 05/16/2023 4:20 AM EDT 05/16/2023 4:29 AM EDT Narrative Resulting Agency Comment Spec In Lab James Agustin MD HEMATOLOGY ORDER JODIE Performing Organization Address City/[facility]/ZIP Co de Phone Number [facility] [place] [address] * (ABNORMAL) Hemogram (05/16/2023 4:20 AM EDT) White Blood Cell 7.4 4.0 - 9.5 x10(3)/ L [facility] Red Blood Cell 2.40(L) 4.00 - 5.21 x10(6)/mc L [facility] Hemoglobin 7.8(L) 11.7 - 15.5 g/dL [facility] Hematocrit 22.5(L) 35.7 - 45.8 % [facility] Mean Cell Volume 93.8 82.6 - 94.4 fL [facility] Mean Cell Hemoglobin 32.5(H) 27.1 - 32.0 pg [facility] Mean Cell Hemoglobin Concentration 34.7 31.7 - 35.0 g/dL [facility] Platelet 120(L) 145 - 357 x10(3)/mc L [facility] RDW Standard Deviation 42.9 37.0 - 46.0 fL [facility] RDW coefficient of variation 12.9 11.5 - 14.1 % [facility] Mean Platelet Volume 11.3 7.6 - 12.9 fL [facility] NRBC% auto 0.7 % [facility] NRBC Absolute 0.050(H) 0.000 - 0.000 x10(3)/mc L [facility] Blood 05/16/2023 4:20 AM EDT 05/16/2023 4:29 AM EDT Narrative Resulting Agency Comment Spec In Lab James Agustin MD HEMATOLOGY ORDER JODIE Performing Organization Address City/[facility]/ZIP Co de Phone Number [facility] [place] [address] * (ABNORMAL) Basic Metabolic Panel (non-fasting) (05/16/2023 4:20 AM EDT) Glucose 89 65 - 199 mg/dL [facility] Comment:Diabetes: >=200 mg/d L plus symptoms Blood Urea Nitrogen 108(H) 8 - 18 mg/dL [facility] Creatinine 4.74(H) 0.70 - 1.20 mg/dL [facility] Comment:result rechecked-OLIVA Sodium 132(L) 135 - 145 mmol/L [facility] Potassium 3.9 3.5 - 5.0 mmol/L [facility] Comment: Please note: ??Patients with WBC >100,000 may have falsely elevated Potassium levels. ??For accurate Potassium quantification in these patients send serum separator tube (gold top) for subsequent determinations. ??Contact the Clinical Chemistry Laboratory if there are any questions. Chloride 95(L) 98 - 107 mmol/L [facility] Carbon Dioxide 18(L) 22 - 31 mmol/L [facility] Anion Gap 19(H) 5 - 15 mmol/L [facility] Calcium 9.2 8.5 - 10.5 mg/dL [facility] Est Glomerular Filtration Rate 10(L) >=60 mL/min/1. 73 m?? [facility] Comment: This patient's estimated GFR [...] Lab Alirio Hudson MD CHEMISTRY ORDERABLE S [facility] [place] [address] * (ABNORMAL) Iron and TIBC (05/16/2023 4:20 AM EDT) Iron 31 30 - 150 mcg/dL [facility] TIBC 259 250 - 450 mcg/dL [facility] Iron Saturation 12(L) 20 - 50 % [facility] Blood 05/16/2023 4:20 AM EDT 05/16/2023 4:29 AM EDT Narrative Resulting Agency Comment Spec In Lab Kristopher Ayoub MD CHEMISTRY ORDERABLES [facility] [place] [address] * (ABNORMAL) Basic Metabolic Panel (non-fasting) (05/15/2023 12:50 AM EDT) Glucose 101 65 - 199 mg/dL [facility] Comment:Diabetes: >=200 mg/d L plus symptoms Blood Urea Nitrogen 109(H) 8 - 18 mg/dL [facility] Creatinine 5.62(H) 0.70 - 1.20 mg/dL [facility] Comment:result rechecked-[place] Sodium 131(L) 135 - 145 mmol/L [facility] Comment:result rechecked-[place] Potassium 3.7 3.5 - 5.0 mmol/L [facility] Comment: result rechecked-KS Please note: ??Patients with WBC >100,000 may have falsely elevated Potassium levels. ??For accurate Potassium quantification in these patients send serum separator tube (gold top) for subsequent determinations. ??Contact the Clinical Chemistry Laboratory if there are any questions. Chloride 92(L) 98 - 107 mmol/L [facility] Comment:result rechecked-[place] Carbon Dioxide 18(L) 22 - 31 mmol/L [facility] Comment:result rechecked-[place] Anion Gap 21(H) 5 - 15 mmol/L [facility] Calcium 8.9 8.5 - 10.5 mg/dL [facility] Est Glomerular Filtration Rate 8(L) >=60 mL/min/1. 73 m?? [facility] Comment: This patient's estimated [...] HEALTH CARE SERVICES Co de Phone Number [facility] [place] [address] * (ABNORMAL) Hemogram (05/15/2023 12:50 AM EDT) White Blood Cell 9.1 4.0 - 9.5 x10(3)/mc L [facility] Red Blood Cell 2.19(L) 4.00 - 5.21 x10(6)/mc L [facility] Hemoglobin 7.2(L) 11.7 - 15.5 g/dL [facility] Hematocrit 20.6(L) 35.7 - 45.8 % [facility] Mean Cell Volume 94.1 82.6 - 94.4 fL [facility] Mean Cell Hemoglobin 32.9(H) 27.1 - 32.0 pg [facility] Mean Cell Hemoglobin Concentration 35.0 31.7 - 35.0 g/dL [facility] Platelet 109(L) 145 - 357 x10(3)/mc L [facility] RDW Standard Deviation 43.6 37.0 - 46.0 fL [facility] RDW coefficient of variation 12.9 11.5 - 14.1 % [facility] Mean Platelet Volume 10.4 7.6 - 12.9 fL [facility] NRBC% auto 2.1 % [facility] NRBC Absolute 0.190(H) 0.000 - 0.000 x10(3)/mc L [facility] Blood 05/15/2023 12:5 0 AM EDT 05/15/2023 12:52 AM EDT Narrative Resulting Agency Comment Spec In Lab Alirio Hudson MD HEMATOLOGY ORDERABL ES [facility] [address] [place] [address] * (ABNORMAL) BLOOD GAS 2 VENOUS (05/15/2023 12:49 AM EDT) pH, Venous 7.33 7.32 - 7.42 [facility] PCO2, Venous 37(L) 41 - 51 mmHg [facility] PO2, Venous 34 25 - 40 mmHg [facility] Bicarbonate, Venous 19.1 mmol/L [facility] Base Excess, Venous -6.8 mmol/L [facility] Hgb Blood Gas 10.8(L) 11.7 - 15.5 g/dL [facility] Oxyhemoglobin, Venous 58.1 % [facility] Carboxyhemoglob in, Venous 0.3 % [facility] Comment: Nonsmokers: 0.5-1.5% COHB Smokers: Variable, but usually less than 10% Toxic: 20-30% COHB Lethal: Greater than 60% COHB Methemoglobin, Venous 0.6 <=1.5 % [facility] Na Whole Blood 136 135 - 145 mmol/L [facility] K Whole Blood 3.7 3.5 - 5.0 mmol/L [facility] Comment: Please note: Patients with WBC >100,000 may have falsely elevated Potassium levels. Contact the Clinical Chemistry Laboratory if there are any questions. ICa Whole Blood 1.12(L) 1.15 - 1.33 mmol/L [facility] Comment: Note: ??Total bilirubin higher than 20 mg/dL may lead to falsely low ionized calcium. CL Whole Blood 95(L) 98 - 107 mmol/L [facility] Gluc Whole Bld 101 65 - 199 mg/dL [facility] Comment:Diabetes: >=200 mg/d L plus symptoms Lactate WB 1.3 0.5 - 2.2 mmol/L [facility] Flow, Mike 1.0 LPM [facility] Blood Gas Source Venous [facility] Blood 05/15/2023 12:4 9 AM EDT 05/15/2023 12:49 AM EDT Alirio Hudson MD POINT OF CARE TEST ORDERABLES Performing Organization Address City/State/[facility] Co de Phone Number [facility] [place] [address] * US Retroperitoneal Complete (05/14/2023 3:53 PM [...] signed by: Hayden Robledo MD, [facility] ([phone]), at 05/14/2023 4:32 PM Thank you for letting us participate in the care of this patient. If you are a health care provider and have any questions regarding this report, please contact the number above. For patients who have questions, please contact the health administrator health care facility that requested your imaging first. ? Hayden Robledo, Staff Physician Electronically Signed Final Report ?? 05/14/2023 04:39 pm Narrative 05/14/2023 4:39 PM EDT Renal ? (Signed Final 05/14/2023 04:39 pm) PATIENT INFO: ID #: ? [id number] ?: ??55 (67 yrs)(F) Name: ? PURNIMA THACKER ?Visit Date: 05/14/2023 03:44 pm PERFORMED BY: Attending: ?Meena CULP, Hayden Stafford Resident: ? Nell CULP, Anand August Performed By: ? Omer JIN, Consuelo Referred By: ?ALIRIO HUDSON Location: ? [facility] SERVICE(S) PROVIDED: URETRO - Retroperitoneal Complete - [id number] ? [id number] INDICATIONS: [facility] COMPARISON: CT: Abdomen/Pelvis 05/11/23 RIGHT [...] 05/14/2023 04:39 pm) PATIENT INFO: ID #: [id number] : 55 (67 yrs)(F) Name: PURNIMA THACKER Visit Date: 05/14/2023 03:44 pm PERFORMED BY: Attending: Hayden Robledo MD Resident: Anand Camejo MD Performed By: Consuelo Tello RDMS Referred By: ALIRIO HUDSON Location: [facility] SERVICE(S) PROVIDED: URETRO - Retroperitoneal Complete - [id number] INDICATIONS: EVANS COMPARISON: CT: Abdomen/Pelvis 05/11/23 RIGHT [...] signed by: Hayden Robledo MD, [facility] ([phone]), at 05/14/2023 4:32 PM Thank you for letting us participate in the care of this patient. If you are a health care provider and have any questions regarding this report, please contact the number above. For patients who have questions, please contact the health administrator health care facility that requested your imaging first. Hayden Robledo, Staff Physician Electronically Signed Final Report 05/14/2023 04:39 pm Alirio Hudson MD IMG US GEN ORDERABL ES * CK (05/14/2023 3:17 PM EDT) Creatine Kinase 123 0 - 160 unit/L [facility] Blood 05/14/2023 3:17 PM EDT 05/14/2023 3:31 PM EDT Narrative Resulting Agency Comment Spec In Lab Alirio Hudson MD CHEMISTRY ORDERABLE S [facility] [place] [address] * (ABNORMAL) Uric acid (05/14/2023 3:17 PM EDT) Uric Acid 14.9(H) 2.5 - 6.5 mg/dL [facility] Blood 05/14/2023 3:17 PM EDT 05/14/2023 3:31 PM EDT Narrative Resulting Agency Comment Spec In Lab Alirio Hudson MD CHEMISTRY ORDERABLE S Performing Organization Address [facility] Co de Phone Number [facility] [place] [address] * (ABNORMAL) Osmolality (05/14/2023 3:17 PM EDT) Pathologist [facility] [place] Osmolality 311(H) 275 - 295 mOsm/kg [facility] Blood 05/14/2023 3:17 PM EDT 05/14/2023 3:31 PM EDT Narrative Resulting Agency Comment Spec In Lab Alirio Hudson MD CHEMISTRY ORDERABLE S Performing Organization Address [facility] de Phone Number [facility] [place] [address] * (ABNORMAL) Differential, Automated (05/14/2023 1:10 AM EDT) Pathologist [facility] [place] Neutrophil % 87.2 % [facility] Neutrophil Absolute 9.74(H) 1.70 - 6.10 x10(3)/mc L [facility] Lymph % 3.9 % [facility] Lymphocytes Abs 0.4(L) 0.9 - 3.2 x10(3)/mc L [facility] Monocyte % 7.9 % [facility] Monocyte Abs 0.9 0.3 - 0.9 x10(3)/mc L [facility] Eos % 0.0 % [facility] Eosinophils Abs 0.0 0.0 - 0.4 x10(3)/mc L [facility] Basophil % 0.1 % [facility] Baso Absolute 0.0 0.0 - 0.1 x10(3)/mc L [facility] Immature Gran % 0.90 % [facility] Comment: Immature granulocytes(IG's)percentage and absolute count will include metamyelocytes, myelocytes, and promyelocytes. Blood smears from CBCs yielding IG's will be scanned manually for concordance. If this scan disagrees with the automated IG or if promyelocytes are noted, a manual differential will be performed. Immature Gran Absolute 0.10(H) 0.00 - 0.04 x10(3)/mc L [facility] Blood 05/14/2023 1:10 AM EDT 05/14/2023 1:24 AM EDT Narrative Resulting Agency Comment Spec In Lab Bonita TOBAR HEMATOLOGY ORDERABLE S [facility] [place] [address] * (ABNORMAL) Hemogram (05/14/2023 1:10 AM EDT) White Blood Cell 11.2(H) 4.0 - 9.5 x10(3)/mc L [facility] Red Blood Cell 2.19(L) 4.00 - 5.21 x10(6)/mc L [facility] Hemoglobin 7.2(L) 11.7 - 15.5 g/dL [facility] Hematocrit 20.3(L) 35.7 - 45.8 % [facility] Mean Cell Volume 92.7 82.6 - 94.4 fL [facility] Mean Cell Hemoglobin 32.9(H) 27.1 - 32.0 pg [facility] Mean Cell Hemoglobin Concentration 35.5(H) 31.7 - 35.0 g/dL [facility] Platelet 112(L) 145 - 357 x10(3)/mc L [facility] RDW Standard Deviation 41.4 37.0 - 46.0 fL [facility] RDW coefficient of variation 12.5 11.5 - 14.1 % [facility] Mean Platelet Volume 10.4 7.6 - 12.9 fL [facility] NRBC% auto 1.5 % [facility] NRBC Absolute 0.170(H) 0.000 - 0.000 x10(3)/mc L [facility] Blood 05/14/2023 1:10 AM EDT 05/14/2023 1:24 AM EDT Narrative Resulting Agency Comment Spec In Lab Bonita TOBAR HEMATOLOGY ORDERABLE S [facility] [place] [address] * (ABNORMAL) Comprehensive metabolic panel (non-fasting) (05/14/2023 1:10 AM EDT) Glucose 120 65 - 199 mg/dL [facility] Comment:Diabetes: >=200 mg/d L plus symptoms Blood Urea Nitrogen 98(H) 8 - 18 mg/dL [facility] Creatinine 4.80(H) 0.70 - 1.20 mg/dL [facility] Comment:result rechecked-ssc Sodium 132(L) 135 - 145 mmol/L [facility] Potassium 4.1 3.5 - 5.0 mmol/L [facility] Comment: Please note: ??Patients with WBC >100,000 may have falsely elevated Potassium levels. ??For accurate Potassium quantification in these patients send serum separator tube (gold top) for subsequent determinations. ??Contact the Clinical Chemistry Laboratory if there are any questions. Chloride 94(L) 98 - 107 mmol/L [facility] Carbon Dioxide 18(L) 22 - 31 mmol/L [facility] Anion Gap 20(H) 5 - 15 mmol/L [facility] Calcium 8.5 8.5 - 10.5 mg/dL [facility] Protein, Total 5.8(L) 6.1 - 8.0 g/dL [facility] Albumin 3.6 3.2 - 5.2 g/dL [facility] Aspartate Aminotransferase 319(H) 0 - 30 unit/L [facility] Alanine Aminotransferase 437(H) 0 - 30 unit/L [facility] Alkaline Phosphatase 86 35 - 105 unit/L [facility] Bilirubin, Total 0.4 0.2 - 1.3 mg/dL [facility] Est Glomerular Filtration Rate 9(L) >=60 mL/min/1. 73 m?? [facility] Comment: This patient's estimated [...] MD CHEMISTRY ORDERABLE S Performing Organization Address [facility] Co de Phone Number [facility] [place] [address] * APTT (05/13/2023 10:15 AM EDT) Partial Thromboplastin Time 27 25 - 37 sec [facility] Comment: The PTT is NOT appropriate for heparin monitoring. Use the Anti-Xa level for heparin monitoring (HEP UFH) or LMWH monitoring (HEP LMW). A PTT less than 37 seconds generally indicates adequate hemostasis. Blood 05/13/2023 10:1 5 AM EDT 05/13/2023 10:46 AM EDT Narrative Resulting Agency Comment Spec In Lab Alirio Hudson MD HEMATOLOGY ORDERABL ES Performing Organization Address [facility] Co de Phone Number [facility] [place] [address] * (ABNORMAL) Prothrombin Time (05/13/2023 10:15 AM EDT) Prothrombin Time 14.6(H) 9.4 - 12.5 sec [facility] International Normalization Ratio 1.3 [facility] Comment: An INR <2.0 indicates [...] Performing Organization Address City/[facility] Co de Phone Number [facility] [place] [address] * EKG 12 Lead (05/13/2023 9:22 AM EDT) Ventricular rate 92 BPM MUSE SYSTEM Atrial Rate 92 BPM MUSE SYSTEM P-R Interval 140 ms MUSE SYSTEM QRS Duration 104 ms MUSE SYSTEM Q-T Interval 384 ms MUSE SYSTEM QTC Calculated (Bezet) 474 ms MUSE SYSTEM Calculated P [place] 33 degrees MUSE SYSTEM Calculated R [place] 41 degrees MUSE SYSTEM Calculated T [place] -35 degrees MUSE SYSTEM INTERPRETATION Sinus rhythm with frequent Premature ventricular complexes Septal infarct , age undetermined ST & T wave abnormality, consider lateral ischemia Abnormal ECG When compared with ECG of 12-MAY-2023 10:10, Premature ventricular complexes are now Present I personally reviewed the tracing and edited the fellows interpretation Confirmed by fellow MD Anitha, Carissa ([id number]) on 05/13/2023 3:25:30 PM Confirmed by Maxx Best ([id number]) on 05/13/2023 8:30:56 PM MUSE SYSTEM 05/13/2023 9:22 AM EDT 05/13/2023 8:30 PM EDT Alirio Hudson MD ECG ORDERABLES Performing Organization Address City/[facility]/ZIP Co de Phone Number MUSE SYSTEM * (ABNORMAL) Differential, Automated (05/13/2023 1:15 AM EDT) Neutrophil % 88.1 % [facility] Neutrophil Absolute 7.62(H) 1.70 - 6.10 x10(3)/mc L [facility] Lymph % 3.1 % [facility] Lymphocytes Abs 0.3(L) 0.9 - 3.2 x10(3)/mc L [facility] Monocyte % 7.9 % [facility] Monocyte Abs 0.7 0.3 - 0.9 x10(3)/mc L [facility] Eos % 0.0 % [facility] Eosinophils Abs 0.0 0.0 - 0.4 x10(3)/mc L [facility] Basophil % 0.1 % [facility] Baso Absolute 0.0 0.0 - 0.1 x10(3)/mc L [facility] Immature Gran % 0.80 % [facility] Comment: Immature granulocytes(IG's)percentage and absolute count will include metamyelocytes, myelocytes, and promyelocytes. Blood smears from CBCs yielding IG's will be scanned manually for concordance. If this scan disagrees with the automated IG or if promyelocytes are noted, a manual differential will be performed. Immature Gran Absolute 0.07(H) 0.00 - 0.04 x10(3)/ L [facility] Blood 05/13/2023 1:15 AM EDT 05/13/2023 1:29 AM EDT Narrative Resulting Agency Comment Spec In Lab Lorri TOBAR HEMATOLOGY ORDERABLE S [facility] [place] [address] * (ABNORMAL) Hemogram (05/13/2023 1:15 AM EDT) White Blood Cell 8.6 4.0 - 9.5 x10(3)/mc L [facility] Red Blood Cell 2.37(L) 4.00 - 5.21 x10(6)/mc L [facility] Hemoglobin 7.8(L) 11.7 - 15.5 g/dL [facility] Hematocrit 22.2(L) 35.7 - 45.8 % [facility] Mean Cell Volume 93.7 82.6 - 94.4 fL [facility] Mean Cell Hemoglobin 32.9(H) 27.1 - 32.0 pg [facility] Mean Cell Hemoglobin Concentration 35.1(H) 31.7 - 35.0 g/dL [facility] Platelet 130(L) 145 - 357 x10(3)/mc L [facility] RDW Standard Deviation 41.7 37.0 - 46.0 fL [facility] RDW coefficient of variation 12.5 11.5 - 14.1 % [facility] Mean Platelet Volume 10.2 7.6 - 12.9 fL [facility] NRBC% auto 0.5 % [facility] NRBC Absolute 0.040(H) 0.000 - 0.000 x10(3)/mc L [facility] Blood 05/13/2023 1:15 AM EDT 05/13/2023 1:29 AM EDT Narrative Resulting Agency Comment Spec In Lab Lorri TOBAR HEMATOLOGY ORDERABLE S [facility] [place] [address] * (ABNORMAL) Hepatic Function Panel (05/13/2023 1:15 AM EDT) Protein, Total 5.5(L) 6.1 - 8.0 g/dL [facility] Albumin 3.0(L) 3.2 - 5.2 g/dL [facility] Aspartate Aminotransferase 792(H) 0 - 30 unit/L [facility] Alanine Aminotransferase 903(H) 0 - 30 unit/L [facility] Alkaline Phosphatase 85 35 - 105 unit/L [facility] Bilirubin, Total 0.5 0.2 - 1.3 mg/dL [facility] Bilirubin, Direct 0.3 0.0 - 0.3 mg/dL [facility] Blood 05/13/2023 1:15 AM EDT 05/13/2023 1:29 AM EDT Narrative Resulting Agency Comment Spec In Lab Alirio Hudson MD CHEMISTRY ORDERABLE S [facility] [place] [address] * (ABNORMAL) Basic Metabolic Panel (non-fasting) (05/13/2023 1:15 AM EDT) Glucose 107 65 - 199 mg/dL [facility] Comment:Diabetes: >=200 mg/d L plus symptoms Blood Urea Nitrogen 82(H) 8 - 18 mg/dL [facility] Creatinine 3.15(H) 0.70 - 1.20 mg/dL [facility] Comment:result rechecked-JSJ Sodium 132(L) 135 - 145 mmol/L [facility] Potassium 3.8 3.5 - 5.0 mmol/L [facility] Comment: Please note: ??Patients with WBC >100,000 may have falsely elevated Potassium levels. ??For accurate Potassium quantification in these patients send serum separator tube (gold top) for subsequent determinations. ??Contact the Clinical Chemistry Laboratory if there are any questions. Chloride 95(L) 98 - 107 mmol/L [facility] Carbon Dioxide 20(L) 22 - 31 mmol/L [facility] Anion Gap 17(H) 5 - 15 mmol/L [facility] Calcium 8.3(L) 8.5 - 10.5 mg/dL [facility] Est Glomerular Filtration Rate 16(L) >=60 mL/min/1. 73 m?? [facility] Comment: This patient's estimated GFR [...] Lab Alirio Hudson MD CHEMISTRY ORDERABLE S [facility] [place] [address] * (ABNORMAL) BLOOD GAS 2 ARTERIAL (05/12/2023 3:57 PM EDT) pH, Arterial 7.39 7.35 - 7.45 [facility] PCO2, Arterial 33(L) 35 - 45 mmHg [facility] PO2, Arterial 101 85 - 104 mmHg [facility] Bicarbonate, Arterial 19.5(L) 20.0 - 26.0 mmol/L [facility] Base Excess, Arterial -5.5(L) -3.0 - 3.0 mmol/L [facility] Hgb Blood Gas 9.8(L) 11.7 - 15.5 g/dL [facility] Oxyhemoglobin, Arterial 95.2 94.0 - 97.0 % [facility] Carboxyhemoglob in, Arterial 0.2 % [facility] Comment: Nonsmokers: 0.5-1.5% COHB Smokers: Variable, but usually less than 10% Toxic: 20-30% COHB Lethal: Greater than 60% COHB Methemoglobin, Arterial 0.8 <=1.5 % [facility] Na Whole Blood 129(L) 135 - 145 mmol/L [facility] K Whole Blood 3.8 3.5 - 5.0 mmol/L [facility] Comment: Please note: Patients with WBC >100,000 may have falsely elevated Potassium levels. Contact the Clinical Chemistry Laboratory if there are any questions. ICa Whole Blood 1.05(L) 1.15 - 1.33 mmol/L [facility] Comment: Note: ??Total bilirubin higher than 20 mg/dL may lead to falsely low ionized calcium. CL Whole Blood 96(L) 98 - 107 mmol/L [facility] Gluc Whole Bld 178 65 - 199 mg/dL [facility] Comment:Diabetes: >=200 mg/d L plus symptoms. Lactate WB 1.5 0.5 - 2.2 mmol/L [facility] FIO2 Art 40 % [facility] PF Ratio Art 252 [facility] Blood 05/12/2023 3:57 PM EDT 05/12/2023 3:57 PM EDT Alirio Hudson MD POINT OF CARE TEST ORDERABLES [facility] [place] [address] * (ABNORMAL) Coox2 (05/12/2023 2:25 PM EDT) pO2, Coox 37 mmHg [facility] Hgb Blood Gas 9.5(L) 11.7 - 15.5 g/dL [facility] Oxyhemoglobin, Coox 59.9 % [facility] Carboxyhemoglo bin, Coox 0.3 % [facility] Comment: Nonsmokers: 0.5-1.5% COHB Smokers: Variable, but usually less than 10% Toxic: 20-30% COHB Lethal: Greater than 60% COHB Methemoglobin, Coox 0.7 <=1.5 % [facility] Source Coox Mixed Venous [facility] Blood 05/12/2023 2:25 PM EDT 05/12/2023 2:25 PM EDT Alirio Hudson MD POINT OF CARE TEST ORDERABLES [facility] [place] [address] * (ABNORMAL) BLOOD GAS 2 ARTERIAL (05/12/2023 2:23 PM EDT) pH, Arterial 7.37 7.35 - 7.45 [facility] PCO2, Arterial 36 35 - 45 mmHg [facility] PO2, Arterial 102 85 - 104 mmHg [facility] Bicarbonate, Arterial 20.4 20.0 - 26.0 mmol/L [facility] Base Excess, Arterial -4.8(L) -3.0 - 3.0 mmol/L [facility] Hgb Blood Gas 12.7 11.7 - 15.5 g/dL [facility] Oxyhemoglobin, Arterial 95.4 94.0 - 97.0 % [facility] Carboxyhemoglob in, Arterial 0.3 % [facility] Comment: Nonsmokers: 0.5-1.5% COHB Smokers: Variable, but usually less than 10% Toxic: 20-30% COHB Lethal: Greater than 60% COHB Methemoglobin, Arterial 0.7 <=1.5 % [facility] Na Whole Blood 129(L) 135 - 145 mmol/L [facility] K Whole Blood 3.7 3.5 - 5.0 mmol/L [facility] Comment: Please note: Patients with WBC >100,000 may have falsely elevated Potassium levels. Contact the Clinical Chemistry Laboratory if there are any questions. ICa Whole Blood 1.05(L) 1.15 - 1.33 mmol/L [facility] Comment: Note: ??Total bilirubin higher than 20 mg/dL may lead to falsely low ionized calcium. CL Whole Blood 95(L) 98 - 107 mmol/L [facility] Gluc Whole Bld 168 65 - 199 mg/dL [facility] Comment:Diabetes: >=200 mg/d L plus symptoms. Lactate WB 1.8 0.5 - 2.2 mmol/L [facility] FIO2 Art 40 % [facility] PF Ratio Art 255 [facility] Blood 05/12/2023 2:23 PM EDT 05/12/2023 2:23 PM EDT Alirio Hudson MD POINT OF CARE TEST ORDERABLES Performing Organization Address City/State/[facility] Co de Phone Number [facility] [place] [address] * (ABNORMAL) Troponin (05/12/2023 2:05 PM EDT) Troponin-T, High Sensitivity 1,022(H) <=14 ng/L [facility] Comment: This patient's troponin T [...] value can be found in the [facility] Laboratory Test Catalog Troponin - [facility] Test Catalog Reference: Fourth [place] Definition of Myocardial Infarction. Journal of the [employer] 2018;72:6211-0747 Blood 05/12/2023 2:05 PM EDT 05/12/2023 2:14 PM EDT Narrative Resulting Agency Comment Spec In Lab Alirio Hudson MD CHEMISTRY ORDERABLE S [facility] [place] [address] * (ABNORMAL) Hemoglobin (05/12/2023 2:05 PM EDT) Hemoglobin 8.5(L) 11.7 - 15.5 g/dL [facility] Blood 05/12/2023 2:05 PM EDT 05/12/2023 2:14 PM EDT Narrative Resulting Agency Comment Spec In Lab Alirio Hudson MD HEMATOLOGY ORDERABL ES Performing Organization Address [facility] Co de Phone Number [facility] [place] [address] * Potassium (05/12/2023 2:05 PM EDT) Potassium 3.9 3.5 - 5.0 mmol/L [facility] Comment: Please note: ??Patients with [...] [facility] [place]/ZIP Co de Phone Number [facility] [place] [address] * (ABNORMAL) BLOOD GAS 2 ARTERIAL (05/12/2023 11:05 AM EDT) pH, Arterial 7.34(L) 7.35 - 7.45 [facility] PCO2, Arterial 42 35 - 45 mmHg [facility] PO2, Arterial 73(L) 85 - 104 mmHg [facility] Bicarbonate, Arterial 22.1 20.0 - 26.0 mmol/L [facility] Base Excess, Arterial -3.6(L) -3.0 - 3.0 mmol/L [facility] Hgb Blood Gas 9.3(L) 11.7 - 15.5 g/dL [facility] Oxyhemoglobin, Arterial 89.3(L) 94.0 - 97.0 % [facility] Carboxyhemoglob in, Arterial 0.2 % [facility] Comment: Nonsmokers: 0.5-1.5% COHB Smokers: Variable, but usually less than 10% Toxic: 20-30% COHB Lethal: Greater than 60% COHB Methemoglobin, Arterial 0.9 <=1.5 % [facility] Na Whole Blood 131(L) 135 - 145 mmol/L [facility] K Whole Blood 3.8 3.5 - 5.0 mmol/L [facility] Comment: Please note: Patients with WBC >100,000 may have falsely elevated Potassium levels. Contact the Clinical Chemistry Laboratory if there are any questions. ICa Whole Blood 1.04(L) 1.15 - 1.33 mmol/L [facility] Comment: Note: ??Total bilirubin higher than 20 mg/dL may lead to falsely low ionized calcium. CL Whole Blood 96(L) 98 - 107 mmol/L [facility] Gluc Whole Bld 152 65 - 199 mg/dL [facility] Comment:Diabetes: >=200 mg/d L plus symptoms. Lactate WB 2.8(H) 0.5 - 2.2 mmol/L [facility] FIO2 Art 40 % [facility] PF Ratio Art 182 [facility] Blood 05/12/2023 11:0 5 AM EDT 05/12/2023 11:05 AM EDT Alirio Hudson MD POINT OF CARE TEST ORDERABLES [facility] [place] [place] [address] * (ABNORMAL) BLOOD GAS 2 ARTERIAL (05/12/2023 10:14 AM EDT) pH, Arterial 7.18(Criti gabrielle) 7.35 - 7.45 [facility] Comment:Noted by instrumentation engineer. PCO2, Arterial 45 35 - 45 mmHg [facility] PO2, Arterial 186(H) 85 - 104 mmHg [facility] Bicarbonate, Arterial 16.2(L) 20.0 - 26.0 mmol/L [facility] Base Excess, Arterial -12.2(L) -3.0 - 3.0 mmol/L [facility] Hgb Blood Gas 10.0(L) 11.7 - 15.5 g/dL [facility] Oxyhemoglobin, Arterial 97.0 94.0 - 97.0 % [facility] Carboxyhemoglob in, Arterial 0.2 % [facility] Comment: Nonsmokers: 0.5-1.5% COHB Smokers: Variable, but usually less than 10% Toxic: 20-30% COHB Lethal: Greater than 60% COHB Methemoglobin, Arterial 0.9 <=1.5 % [facility] Na Whole Blood 129(L) 135 - 145 mmol/L [facility] K Whole Blood 3.6 3.5 - 5.0 mmol/L [facility] Comment: Please note: Patients with WBC >100,000 may have falsely elevated Potassium levels. Contact the Clinical Chemistry Laboratory if there are any questions. ICa Whole Blood 1.10(L) 1.15 - 1.33 mmol/L [facility] Comment: Note: ??Total bilirubin higher than 20 mg/dL may lead to falsely low ionized calcium. CL Whole Blood 97(L) 98 - 107 mmol/L [facility] Gluc Whole Bld 161 65 - 199 mg/dL [facility] Comment:Diabetes: >=200 mg/d L plus symptoms. Lactate WB 3.3(H) 0.5 - 2.2 mmol/L [facility] FIO2 Art 100 % [facility] PF Ratio Art 186 [facility] Blood 05/12/2023 10:1 4 AM EDT 05/12/2023 10:14 AM EDT Alirio Hudson MD POINT OF CARE TEST ORDERABLES Performing Organization Address [facility] [place] [address] * EKG 12 Lead (05/12/2023 10:10 AM EDT) Ventricular rate 116 BPM MUSE SYSTEM Atrial Rate 116 BPM MUSE SYSTEM P-R Interval 158 ms MUSE SYSTEM QRS Duration 114 ms MUSE SYSTEM Q-T Interval 348 ms MUSE SYSTEM QTC Calculated (Bezet) 483 ms MUSE SYSTEM Calculated P [place] 37 degrees MUSE SYSTEM Calculated R [place] 31 degrees MUSE SYSTEM Calculated T [place] -138 degrees MUSE SYSTEM INTERPRETATION Sinus tachycardia [...] interpretation Confirmed by fellow MD Anuja, Jim ([id number]) on 05/12/2023 1:04:20 PM Confirmed by MD Mono, Eleni ([id number]) on 05/12/2023 9:28:34 PM MUSE SYSTEM 05/12/2023 10:1 0 AM EDT 05/12/2023 9:28 PM EDT Alirio Hudson MD ECG ORDERABLES Performing Organization Address [facility]/ZIP Co de Phone Number MUSE SYSTEM * XR Chest One View [...] who have questions please contact the health administrator health care facility that requested your imaging first. ? Electronically signed by: Chyna Johnson MD, [facility] ??([phone]), at 05/12/2023 10:08 AM Narrative 05/12/2023 10:08 AM EDT EXAMINATION: XR CHEST ONE VIEW CLINICAL HISTORY: Post TAVR TECHNIQUE: 1 view of the chest COMPARISON: Chest radiograph from earlier today FINDINGS: Interval placement of endotracheal tube with tip terminating 2 cm above the shira. Interval placement of enteric tube projecting along the expected course of the esophagus and outside the nqetd-ko-jgux. Interval retraction of right IJ approach pulmonary [...] expected course ofthe esophagus and outside the andlp-pu-ljcg. Interval retraction of right IJ approach pulmonary [...] patients who have questions please contactthe health administrator health care facility that requested your imaging first. Electronically signed by: Chyna Johnson MD, [facility]([phone]), at 05/12/2023 10:08 AM Alirio Hudson MD IMG DX ORDERABLES * ECHO LMTD W/O CONTRAST W LMTD SPEC DOPP COLOR DOPP (05/12/2023 9:23 AM EDT) [facility] EF 20 HEARTLAB SYSTEM Anatomical Region Laterality Modality Cardiac Other 05/12/2023 7:33 AM EDT Narrative 05/12/2023 10:18 AM EDT ? Echocardiogram Report Name: PURNIMA THACKER ?Study Date: 05/12/2023 07:33 AMBP: 96/63 mmHg ? Patient Location: [address] : 1955 ? Height: 154 cm ? Account: [id number] Age: 67 yrs ? Weight: 75 kg Gender: Female ?BSA: 1.7 m2 Ordering Physician: RADHA HOLLINS Referring Physician: RADHA HOLLINS Performed By: Dilma Bee RDCS Reason For Study: Guidance for TAVR procedure Exam Location: [facility]. Interpretation Summary PRE TAVR: There [...] mL/m2. POST TAVR: Normal function of the jhsgk-bn-lhsmo prosthesis. See below for hemodynamic parameters. Slight improvement in left and right ventricular systolic function. LVEF now 20-25%. No pericardial effusion. See report for additional findings. Procedure Limited - 18748. Doppler - 48454. Color Doppler - 99173. Left Ventricle Left ventricle is of normal [...] 307:33 AMBP: 96/63 mmHg Patient Location: [address] : 1955 Height: 154 cm Account: [id number] Age: 67 yrs Weight: 75 kg Gender: Female BSA: 1.7 m2 Ordering Physician: RADHA HOLLINS Referring Physician: RADHA HOLLINS Performed By: Dilma Bee RDCS Reason For Study: Guidance for TAVR procedure Exam Location: [facility]. Interpretation Summary PRE TAVR: There [...] 28mL/m2. POST TAVR: Normal function of the kvtgz-th-kqgzf prosthesis. See belowfor hemodynamic parameters. Slight improvement in left and right ventricularsystolic function. LVEF now 20-25%. No pericardial effusion. See report for additional findings. Procedure Limited - 93747. Doppler - 40444. Color Doppler - 94660. Left Ventricle Left ventricle is of normal [...] ? Procedure Date: 05/12/2023 ? A #: [id number] ? Primary Physician: Zachary, Antelmo De La Fuente ? Case #: [id number] ? File Name: [id number] ? Catheterization Order Number: [id number] ? [facility] ? Final Report [place], [place] ? Patient Name: ? Purnima M. Kirstie ? ID#: ?[id number] ? : ?1955 ? Procedure Date: ? [...] Device Deployment ?* Temporary Pacemaker Insertion In [employer] ?* Endotracheal Intubation By Non-Cath Physician ?* Cardiopulmonary Resuscitation ?* Access Site Angiography ?* Anesthesia ?* Arterial Blood Gases ?* Transthoracic Echo During Cath ? History ?Purnima M. Kirstie is a 67 year old woman. She [...] was designated as ASA Class IV. The [facility] clinical ?frailty scale is 4: Vulnerable. [...] ??A premounted 4.00 x 30 mm Nils Craven (MINNA) was ? deployed with a maximum [...] calculated STS risk score was 30.1%. A uopcy-su-jvhyb ?procedure was performed on the pre-existing bioprosthetic stented ?prosthesis. The priority of the sijoy-mk-avjwo procedure was Elective. ?The procedure was performed under Moderate sedation performed by Lynda Ramires ?dAair Mcgowan (see anesthesia report for additional details). Alirio Powell ?Adair Hudson participated in the case (see Cardiac Surgery report for ?additional details). ?The TAVR sheath was a 14 Fr Corona eSheath Introducer and the access ?site was femoral. Rapid ventricular pacing was performed. ?An Corona Lai 3 Ultra RESILIA 23 mm THV (s/h=[id number]) transcatheter ?valve was inserted using standard technique. 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 ?Recommended anti-platelet/anti-thrombotic regimen: ?Continue aspirin 81 mg daily for indefinitely. ?These recommendations are made at the time of the intervention. Patient ?and provider preferences or a changing clinical situation may require ?modification of this regimen. Consult [facility] Interventional Cardiology for ?questions. [...] regimen. ? Comments: ?Successful right transfemoral TAVR Somwi-mz-Epoba with a 23 mm Lai 3 ?THV. 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 Dr. Alirio Hudson M.D. ?performed the left heart catheterization, access site angiography, ?temporary pacemaker in dairy lab technician, vascular closure device, transthoracic ?echo [...] [facility] Cardiac Catheterization/Intervention Report Patient Name: Purnima ThackerKaylie Procedure Date: 05/12/2023 A #: [id number] Primary Physician: Antelmo Sharma Case #: [id number] File Name: [id number] Catheterization Order Number: [id number] [facility] FinalReport [place], [place] Patient Name: Purnima Thacker ID#:[id number] :1955 Procedure Date: May 12, 2023 Case #: [id number] Room: 6 Case Physicians: Antelmo Sharma M.D. Start: 08:03 Alirio Hudson M.D. Admission:05/08/2023 Lynda Mcgowan M.D. Discharge:05/22/2023 Fellow: Rebekah Tejeda M.D. Referring Physician: Mario Alberto Chni M.D. Procedures: * Coronary Angiography * Left Heart Catheterization * Coronary Stent Insertion * Transcatheter Aortic Valve Replacement * Vascular Closure Device Deployment * Temporary Pacemaker Insertion In [employer] * Endotracheal Intubation By Non-Cath Physician * [...] aortic valve replacement with a biological prosthesis. Yulissao has a total of one aortic valve [...] guide. A premounted 4.00 x 30 mm Hemet Craven (MINNA) was deployed with a maximum inflation [...] calculated STS risk score was 30.1%. A lyjkc-qu-cuakl procedure was performed on the pre-existing bioprosthetic stented prosthesis. The priority of the qhhvu-sq-rjurg procedure wasElective. The procedure was performed under Moderate sedation performed byLynda Mcgowan M.D. (see anesthesia report for additional details). Alirio Hudson M.D. participated in the case (see Cardiac Surgery reportfor additional details). The TAVR sheath was a 14 Fr Corona eSheath Introducer and theaccess site was femoral. Rapid ventricular pacing was performed. An Corona Lai 3 Ultra RESILIA 23 mm THV (s/h=[id number])transcatheter valve was inserted using standard technique. The [...] prior to nor was it given inthe dairy lab technician. Recommended anti-platelet/anti-thrombotic regimen: Continue aspirin 81 mg daily for indefinitely. These recommendations are made at the time of the intervention.Patient and provider preferences or a changing clinical situation mayrequire modification of this regimen. Consult [facility] Interventional Cardiologyfor questions. Conclusions: [...] this regimen. Comments: Successful right transfemoral TAVR Ypzdz-gm-Gupgb with a 23 mmSapien 3 THV. We [...] insertion-coronary, access site angiography, temporary pacemaker in dairy lab technician, intubation-non cath physician,vascular closure device, transthoracic echo and TAVR. Dr. Alirio Hudson M.D. performed the left heart catheterization, access site angiography, temporary pacemaker in dairy lab technician, vascular closure device,transthoracic echo , [...] pH, POC 7.20(Crit ical) 7.35 - 7.45 [facility] Comment:Critical value OK, C C Lab. pCO2, POC 42 35 - 45 mmHg [facility] pO2, POC 260(H) 85 - 104 mmHg [facility] Base Excess, POC -11.0(L) -3.0 - 3.0 mmol/L [facility] Bicarbonate, POC 16.7(L) 20.0 - 26.0 mmol/L [facility] Sodium, POC 129(L) 135 - 145 mmol/L [facility] POC Potassium 3.8 3.5 - 5.0 mmol/L [facility] Ionized Calcium, POC 1.12(L) 1.15 - 1.33 mmol/L [facility] POC Hematocrit 23.0(L) 34.0 - 45.0 % [facility] POC Calc Hgb 7.8(L) 11.2 - 15.7 g/dL [facility] Comment:The calculation of h emoglobin from hematocrit assumes a normal MCHC. POC Bgas Loc CC Lab [facility] Blood 05/12/2023 8:50 AM EDT 05/13/2023 12:00 PM EDT Alirio Hudson MD CHEMISTRY ORDERABLE S [facility] [place] [address] * (ABNORMAL) Point of Care Blood Gas Historical (05/12/2023 8:10 AM EDT) pH, POC 7.27(Crit ical) 7.35 - 7.45 [facility] Comment:Critical value OK, C C Lab. pCO2, POC 37 35 - 45 mmHg [facility] pO2, POC 29(Critic al) 85 - 104 mmHg [facility] Comment:Critical value OK, C C Lab. Base Excess, POC -10.0(L) -3.0 - 3.0 mmol/L [facility] Bicarbonate, POC 16.7(L) 20.0 - 26.0 mmol/L [facility] Sodium, POC 123(L) 135 - 145 mmol/L [facility] POC Potassium 4.0 3.5 - 5.0 mmol/L [facility] Ionized Calcium, POC 1.12(L) 1.15 - 1.33 mmol/L [facility] POC Hematocrit 27.0(L) 34.0 - 45.0 % [facility] POC Calc Hgb 9.2(L) 11.2 - 15.7 g/dL [facility] Comment:The calculation of h emoglobin from hematocrit assumes a normal MCHC. POC Bgas Loc CC Lab [facility] Blood 05/12/2023 8:10 AM EDT 05/13/2023 12:00 PM EDT Alirio Hudson MD CHEMISTRY ORDERABLE S [facility] [place] [address] * (ABNORMAL) Lactate, whole blood, send to lab ([facility]) (05/12/2023 7:00 AM EDT) Lactate WB 2.4(H) 0.5 - 2.2 mmol/L [facility] Blood 05/12/2023 7:00 AM EDT 05/12/2023 7:09 AM EDT Narrative Resulting Agency Comment Spec In Lab Radha Hollins MD CHEMISTRY ORDERABL ES [facility] [place] [address] * (ABNORMAL) Comprehensive metabolic panel (non-fasting) (05/12/2023 6:00 AM EDT) Glucose 167 65 - 199 mg/dL [facility] Comment:Diabetes: >=200 mg/d L plus symptoms Blood Urea Nitrogen 67(H) 8 - 18 mg/dL [facility] Creatinine 2.01(H) 0.70 - 1.20 mg/dL [facility] Sodium 131(L) 135 - 145 mmol/L [facility] Potassium 4.3 3.5 - 5.0 mmol/L [facility] Comment: Please note: ??Patients with WBC >100,000 may have falsely elevated Potassium levels. ??For accurate Potassium quantification in these patients send serum separator tube (gold top) for subsequent determinations. ??Contact the Clinical Chemistry Laboratory if there are any questions. Chloride 97(L) 98 - 107 mmol/L [facility] Carbon Dioxide 14(L) 22 - 31 mmol/L [facility] Anion Gap 20(H) 5 - 15 mmol/L [facility] Calcium 8.6 8.5 - 10.5 mg/dL [facility] Protein, Total 6.3 6.1 - 8.0 g/dL [facility] Albumin 3.5 3.2 - 5.2 g/dL [facility] Aspartate Aminotransferase 1,435(H) 0 - 30 unit/L [facility] Alanine Aminotransferase 1,174(H) 0 - 30 unit/L [facility] Alkaline Phosphatase 100 35 - 105 unit/L [facility] Bilirubin, Total 0.9 0.2 - 1.3 mg/dL [facility] Est Glomerular Filtration Rate 27(L) >=60 mL/min/1. 73 m?? [facility] Comment: This patient's estimated GFR [...] MD CHEMISTRY ORDERABL ES Performing Organization Address [facility] Co de Phone Number [facility] [place] [address] * (ABNORMAL) Coox2 (05/12/2023 5:08 AM EDT) pO2, Coox 24 mmHg [facility] Hgb Blood Gas 10.4(L) 11.7 - 15.5 g/dL [facility] Oxyhemoglobin, Coox 30.7 % [facility] Carboxyhemoglo bin, Coox 0.3 % [facility] Comment: Nonsmokers: 0.5-1.5% COHB Smokers: Variable, but usually less than 10% Toxic: 20-30% COHB Lethal: Greater than 60% COHB Methemoglobin, Coox 0.8 <=1.5 % [facility] Source Coox Mixed Venous [facility] Blood 05/12/2023 5:08 AM EDT 05/12/2023 5:08 AM EDT Radha Hollins MD POINT OF CARE TEST ORDERABLES Performing Organization Address [facility] Co de Phone Number [facility] [place] [address] * (ABNORMAL) Coox2 (05/12/2023 3:21 AM EDT) pO2, Coox 25 mmHg [facility] Hgb Blood Gas 10.8(L) 11.7 - 15.5 g/dL [facility] Oxyhemoglobin, Coox 32.7 % [facility] Carboxyhemoglo bin, Coox 0.3 % [facility] Comment: Nonsmokers: 0.5-1.5% COHB Smokers: Variable, but usually less than 10% Toxic: 20-30% COHB Lethal: Greater than 60% COHB Methemoglobin, Coox 0.7 <=1.5 % [facility] Source Coox Mixed Venous [facility] Blood 05/12/2023 3:21 AM EDT 05/12/2023 3:21 AM EDT Radha Hollins MD POINT OF CARE TEST ORDERABLES [facility] [place] [address] * (ABNORMAL) BLOOD GAS 2 ARTERIAL (05/12/2023 3:18 AM EDT) pH, Arterial 7.34(L) 7.35 - 7.45 [facility] PCO2, Arterial 30(L) 35 - 45 mmHg [facility] PO2, Arterial 72(L) 85 - 104 mmHg [facility] Bicarbonate, Arterial 16.0(L) 20.0 - 26.0 mmol/L [facility] Base Excess, Arterial -9.8(L) -3.0 - 3.0 mmol/L [facility] Hgb Blood Gas 11.0(L) 11.7 - 15.5 g/dL [facility] Oxyhemoglobin, Arterial 89.8(L) 94.0 - 97.0 % [facility] Carboxyhemoglob in, Arterial 0.3 % [facility] Comment: Nonsmokers: 0.5-1.5% COHB Smokers: Variable, but usually less than 10% Toxic: 20-30% COHB Lethal: Greater than 60% COHB Methemoglobin, Arterial 0.7 <=1.5 % [facility] Na Whole Blood 131(L) 135 - 145 mmol/L [facility] K Whole Blood 4.2 3.5 - 5.0 mmol/L [facility] Comment: Please note: Patients with WBC >100,000 may have falsely elevated Potassium levels. Contact the Clinical Chemistry Laboratory if there are any questions. ICa Whole Blood 1.12(L) 1.15 - 1.33 mmol/L [facility] Comment: Note: ??Total bilirubin higher than 20 mg/dL may lead to falsely low ionized calcium. CL Whole Blood 100 98 - 107 mmol/L [facility] Gluc Whole Bld 160 65 - 199 mg/dL [facility] Comment:Diabetes: >=200 mg/d L plus symptoms. Lactate WB 2.7(H) 0.5 - 2.2 mmol/L [facility] Flow Art 5.0 LPM [facility] Blood 05/12/2023 3:18 AM EDT 05/12/2023 3:18 AM EDT Radha Hollins MD POINT OF CARE TEST ORDERABLES Performing Organization Address [facility] Co de Phone Number [facility] [place] [address] * (ABNORMAL) Coox2 (05/12/2023 1:14 AM EDT) pO2, Coox 28 mmHg [facility] Hgb Blood Gas 10.9(L) 11.7 - 15.5 g/dL [facility] Oxyhemoglobin, Coox 37.3 % [facility] Carboxyhemoglo bin, Coox 0.3 % [facility] Comment: Nonsmokers: 0.5-1.5% COHB Smokers: Variable, but usually less than 10% Toxic: 20-30% COHB Lethal: Greater than 60% COHB Methemoglobin, Coox 0.5 <=1.5 % [facility] Source Coox Mixed Venous [facility] Blood 05/12/2023 1:14 AM EDT 05/12/2023 1:14 AM EDT Radha Hollins MD POINT OF CARE TEST ORDERABLES Performing Organization Address [facility] Co de Phone Number [facility] [place] [address] * (ABNORMAL) BLOOD GAS 2 ARTERIAL (05/12/2023 1:06 AM EDT) pH, Arterial 7.34(L) 7.35 - 7.45 [facility] PCO2, Arterial 30(L) 35 - 45 mmHg [facility] PO2, Arterial 81(L) 85 - 104 mmHg [facility] Bicarbonate, Arterial 15.7(L) 20.0 - 26.0 mmol/L [facility] Base Excess, Arterial -10.1(L) -3.0 - 3.0 mmol/L [facility] Hgb Blood Gas 11.0(L) 11.7 - 15.5 g/dL [facility] Oxyhemoglobin, Arterial 92.3(L) 94.0 - 97.0 % [facility] Carboxyhemoglob in, Arterial 0.2 % [facility] Comment: Nonsmokers: 0.5-1.5% COHB Smokers: Variable, but usually less than 10% Toxic: 20-30% COHB Lethal: Greater than 60% COHB Methemoglobin, Arterial 0.6 <=1.5 % [facility] Na Whole Blood 131(L) 135 - 145 mmol/L [facility] K Whole Blood 4.2 3.5 - 5.0 mmol/L [facility] Comment: Please note: Patients with WBC >100,000 may have falsely elevated Potassium levels. Contact the Clinical Chemistry Laboratory if there are any questions. ICa Whole Blood 1.13(L) 1.15 - 1.33 mmol/L [facility] Comment: Note: ??Total bilirubin higher than 20 mg/dL may lead to falsely low ionized calcium. CL Whole Blood 99 98 - 107 mmol/L [facility] Gluc Whole Bld 132 65 - 199 mg/dL [facility] Comment:Diabetes: >=200 mg/d L plus symptoms. Lactate WB 2.7(H) 0.5 - 2.2 mmol/L [facility] Flow Art 5.0 LPM [facility] Blood 05/12/2023 1:06 AM EDT 05/12/2023 1:06 AM EDT Radha Hollins MD POINT OF CARE TEST ORDERABLES Performing Organization Address City/State/[facility] Co de Phone Number [facility] [place] [address] * (ABNORMAL) Differential, Automated (05/12/2023 1:05 AM EDT) Neutrophil % 83.3 % [facility] Neutrophil Absolute 7.49(H) 1.70 - 6.10 x10(3)/mc L [facility] Lymph % 7.1 % [facility] Lymphocytes Abs 0.6(L) 0.9 - 3.2 x10(3)/mc L [facility] Monocyte % 8.9 % [facility] Monocyte Abs 0.8 0.3 - 0.9 x10(3)/mc L [facility] Eos % 0.0 % [facility] Eosinophils Abs 0.0 0.0 - 0.4 x10(3)/ L [facility] Basophil % 0.1 % [facility] Baso Absolute 0.0 0.0 - 0.1 x10(3)/ L [facility] Immature Gran % 0.60 % [facility] Comment: Immature granulocytes(IG's)percentage and absolute count will include metamyelocytes, myelocytes, and promyelocytes. Blood smears from CBCs yielding IG's will be scanned manually for concordance. If this scan disagrees with the automated IG or if promyelocytes are noted, a manual differential will be performed. Immature Gran Absolute 0.05(H) 0.00 - 0.04 x10(3)/ L [facility] Blood 05/12/2023 1:05 AM EDT 05/12/2023 1:15 AM EDT Narrative Resulting Agency Comment Spec In Lab Gianni Fletcher MD HEMATOLOGY ORDERABLE S [facility] [place] [place] [address] * (ABNORMAL) Hemogram (05/12/2023 1:05 AM EDT) White Blood Cell 9.0 4.0 - 9.5 x10(3)/ L [facility] Red Blood Cell 3.01(L) 4.00 - 5.21 x10(6)/ L [facility] Hemoglobin 9.8(L) 11.7 - 15.5 g/dL [facility] Hematocrit 28.7(L) 35.7 - 45.8 % [facility] Mean Cell Volume 95.3(H) 82.6 - 94.4 fL [facility] Mean Cell Hemoglobin 32.6(H) 27.1 - 32.0 pg [facility] Mean Cell Hemoglobin Concentration 34.1 31.7 - 35.0 g/dL [facility] Platelet 186 145 - 357 x10(3)/mc L [facility] RDW Standard Deviation 43.7 37.0 - 46.0 fL [facility] RDW coefficient of variation 12.7 11.5 - 14.1 % [facility] Mean Platelet Volume 10.3 7.6 - 12.9 fL [facility] NRBC% auto 0.0 % [facility] NRBC Absolute 0.000 0.000 - 0.000 x10(3)/mc L [facility] Blood 05/12/2023 1:05 AM EDT 05/12/2023 1:15 AM EDT Narrative Resulting Agency Comment Spec In Lab Gianni Fletcher MD HEMATOLOGY ORDERABLE S [facility] [place] [address] * (ABNORMAL) Comprehensive metabolic panel (non-fasting) (05/12/2023 1:05 AM EDT) Glucose 141 65 - 199 mg/dL [facility] Comment:Diabetes: >=200 mg/d L plus symptoms Blood Urea Nitrogen 63(H) 8 - 18 mg/dL [facility] Creatinine 1.86(H) 0.70 - 1.20 mg/dL [facility] Sodium 131(L) 135 - 145 mmol/L [facility] Potassium 4.4 3.5 - 5.0 mmol/L [facility] Comment: Please note: ??Patients with WBC >100,000 may have falsely elevated Potassium levels. ??For accurate Potassium quantification in these patients send serum separator tube (gold top) for subsequent determinations. ??Contact the Clinical Chemistry Laboratory if there are any questions. Chloride 96(L) 98 - 107 mmol/L [facility] Carbon Dioxide 14(L) 22 - 31 mmol/L [facility] Anion Gap 21(H) 5 - 15 mmol/L [facility] Calcium 9.0 8.5 - 10.5 mg/dL [facility] Protein, Total 6.6 6.1 - 8.0 g/dL [facility] Albumin 3.9 3.2 - 5.2 g/dL [facility] Aspartate Aminotransferase 1,227(H) 0 - 30 unit/L [facility] Alanine Aminotransferase 1,097(H) 0 - 30 unit/L [facility] Alkaline Phosphatase 108(H) 35 - 105 unit/L [facility] Bilirubin, Total 1.0 0.2 - 1.3 mg/dL [facility] Est Glomerular Filtration Rate 29(L) >=60 mL/min/1. 73 m?? [facility] Comment: This patient's estimated GFR [...] Lab Radha Hollins MD CHEMISTRY ORDERABL ES [facility] [place] [address] * XR Chest One View (05/12/2023 1:00 [...] who have questions please contact the health administrator health care facility that requested your imaging first. ? Electronically signed by: Will Rowe MD, [facility] ([phone]), at 05/12/2023 3:16 AM Narrative 05/12/2023 3:16 [...] patients who have questions please contactthe health administrator health care facility that requested your imaging first. Radha Hollins MD IMG DX ORDERABLES * (ABNORMAL) Coox2 (05/12/2023 12:30 AM EDT) pO2, Coox 22 mmHg [facility] Hgb Blood Gas 10.9(L) 11.7 - 15.5 g/dL [facility] Oxyhemoglobin, Coox 25.1 % [facility] Carboxyhemoglo bin, Coox 0.3 % [facility] Comment: Nonsmokers: 0.5-1.5% COHB Smokers: Variable, but usually less than 10% Toxic: 20-30% COHB Lethal: Greater than 60% COHB Methemoglobin, Coox 1.4 <=1.5 % [facility] Source Coox Mixed Venous [facility] Blood 05/12/2023 12:3 0 AM EDT 05/12/2023 12:30 AM EDT Radha Hollins MD POINT OF CARE TEST ORDERABLES [facility] [place] [address] * XR Chest One View (05/11/2023 11:45 [...] who have questions please contact the health administrator health care facility that requested your imaging first. ? Electronically signed by: Will Rowe MD, [facility] ([phone]), at 05/11/2023 11:57 PM Narrative 05/11/2023 11:57 [...] patients who have questions please contactthe health administrator health care facility that requested your imaging first. Electronically signed by: Will Rowe MD, [facility]([phone]), at 05/11/2023 11:57 PM Radha Hollins MD IMG DX ORDERABLES * (ABNORMAL) Lactate, whole blood, send to lab ([facility] [place] (05/11/2023 7:40 PM EDT) Lactate WB 4.8(Critic al) 0.5 - 2.2 mmol/L [facility] Comment:Called by: [facility], Read back by: Magdalena Baires, Date/Time:05/11/23 19:54. Blood 05/11/2023 7:40 PM EDT 05/11/2023 7:49 PM EDT Narrative Resulting Agency Comment Spec In Lab Radha Hollins MD CHEMISTRY ORDERABL ES Performing Organization Address City/[facility]/ZIP Co de Phone Number [facility] [place] [address] * Urine culture (05/11/2023 7:22 PM EDT) [facility] Urine Culture 50,000-99,000 cfu/ml Normal mucosal herman Susceptibilit y testing not routinely performed for Coagulase Negative Staphylococcu s species and other Gram Positive organisms from urine. [facility] Clean Catch Urine 05/11/2023 7:22 PM EDT 05/11/2023 8:50 PM EDT Narrative Resulting Agency Comment Spec In Lab Brody Kaplan APRN MICROBIOLOGY - [place] [address] * (ABNORMAL) Urinalysis Microscopic Exam (05/11/2023 7:22 PM EDT) Pathologist [facility] RBC, Urine 2 0 - 4 /HPF [facility] WBC, Urine >100(H) 0 - 5 /HPF [facility] Bacteria, Urine Occasional (A) None /HPF [facility] Squamous Epithelial Cells Raw Data, Urine 5(H) <=4 /HPF [facility] Hyaline Casts, Urine 3(H) 0 - 2 /LPF [facility] Clean Catch Urine 05/11/2023 7:22 PM EDT 05/11/2023 7:31 PM EDT Narrative Resulting Agency Comment Spec In Lab Brody Kaplan APRN URINE ORDERABLES [facility] [place] [address] * (ABNORMAL) Urinalysis with reflex Culture (05/11/2023 7:22 PM EDT) Glucose, Urine Dipstick Negative Negative mg/dL [facility] Protein, Urine Dipstick Trace(A) Negative mg/dL [facility] Bilirubin, Urine Dipstick Negative Negative mg/dL [facility] Comment: Clinical correlation required for positive Urine Bilirubin results as false positive may occur with some drugs and drug related products. If a false positive is suspected a serum total bilirubin should be considered if clinically indicated. Urobilinogen, Urine Dipstick Normal Normal mg/dL [facility] pH, Urn (dipstick) 5.0 5.0 - 8.0 [facility] Blood, Urine Dipstick Trace(A) Negative mg/dL [facility] Ketone, Urine Dipstick Negative Negative mg/dL [facility] Nitrite, Urine Dipstick Negative Negative [facility] Leukocytes, Urine Dipstick Moderate(A) Negative [facility] Appearance, Urine Dipstick Cloudy(A) Clear [facility] Specific [place] Urine Automated >=1.030(A) 1.005 - 1.030 [facility] Color, Urine Dipstick Yellow Yellow [facility] Reflex to Culture Yes [facility] Clean Catch Urine 05/11/2023 7:22 PM EDT 05/11/2023 7:31 PM EDT Narrative Resulting Agency Comment Spec In Lab Brody S Melcer [employer]ATOR [employer] URINE ORDERABLES Performing Organization Address City/[facility]/ZIP Co de Phone Number [facility] [place] [address] * (ABNORMAL) pro-Brain Natriuretic Peptide (05/11/2023 7:11 PM EDT) NT-proBNP >35,000(H) <=124 pg/mL [facility] Blood 05/11/2023 7:11 PM EDT 05/11/2023 7:26 PM EDT Narrative Resulting Agency Comment Spec In Lab Radha Hollins MD CHEMISTRY ORDERABL ES Performing Organization Address City/[facility]/ZIP Co de Phone Number [facility] [place] [address] * (ABNORMAL) Lactate, whole blood, send to lab ([facility] [place]) (05/11/2023 2:47 PM EDT) Lactate WB 2.9(H) 0.5 - 2.2 mmol/L [facility] Blood 05/11/2023 2:47 PM EDT 05/11/2023 2:53 PM EDT Narrative Resulting Agency Comment Spec In Lab Juan Luis Gonzalez MD CHEMISTRY ORDERABLES Performing Organization Address [facility] Co de Phone Number [facility] [place] [address] * (ABNORMAL) CT Angiogram Abdomen & Pelvis [...] who have questions please contact the health administrator health care facility that requested your imaging first. ? Electronically signed by: Eileen Gomes MD, [facility] ([phone]), at 05/11/2023 2:42 PM Narrative 05/11/2023 2:42 [...] who have questions please contact the health administrator health care facility that requested your imaging first. ? Electronically signed by: Cullen Narayanan MD, [facility] ([phone]), at 05/11/2023 4:37 PM Narrative 05/11/2023 4:37 [...] 610 mm2 Circumference: 88 mm Calcification: Mild Mtrtpeg-bm-vabvvwcr height: Left: 6.2 mm Right: 5.8 mm THORACIC AORTA Description: Normal course and caliber. ??Mild diffuse atherosclerotic changes. No acute aortopathy noted. Dental Sales Representative dimensions: Aortic root: 27.6 mm Max ascending aorta: 30.5 mm x 27.7 mm Suggested fluoroscopic angulation based on line extending through the nadirs of the three sinuses of Valsalva, set equidistant: ?? WALLISIAN ??9 degrees; cranial 7 degrees MITRAL: Mitral [...] 610 mm2 Circumference: 88 mm Calcification: Mild Uyqbqli-ab-cskqdfku height: Left: 6.2 mm Right: 5.8 mm THORACIC AORTA Description: Normal course and caliber. Mild diffuse atheroscleroticchanges. No acute aortopathy noted. Dental Sales Representative dimensions: Aortic root: 27.6 mm Max ascending aorta: 30.5 mm x 27.7 mm Suggested fluoroscopic angulation based on line extending through thenadirs of the three sinuses of Valsalva, set equidistant: WALLISIAN 9 degrees; cranial 7 degrees MITRAL: Mitral [...] patients who have questions please contactthe health administrator health care facility that requested your imaging first. Electronically signed by: Cullen Narayanan MD, [facility]([phone]), at 05/11/2023 4:37 PM Antelmo Sharma MD [facility] CT ORDERABLES * (ABNORMAL) Lactate, whole blood, send to lab ([facility] [place]) (05/11/2023 9:29 AM EDT) Pathologist [facility] Lactate WB 3.1(H) 0.5 - 2.2 mmol/L [facility] Blood 05/11/2023 9:29 AM EDT 05/11/2023 9:38 AM EDT Narrative Resulting Agency Comment Spec In Lab Juan Luis Gonzalez MD CHEMISTRY ORDERABLES [facility] [place] [address] * (ABNORMAL) Differential, Automated (05/11/2023 4:42 AM EDT) Pathologist [facility] Neutrophil % 78.1 % [facility] Neutrophil Absolute 5.46 1.70 - 6.10 x10(3)/mc L [facility] Lymph % 10.6 % [facility] Lymphocytes Abs 0.7(L) 0.9 - 3.2 x10(3)/mc L [facility] Monocyte % 9.6 % [facility] Monocyte Abs 0.7 0.3 - 0.9 x10(3)/mc L [facility] Eos % 0.0 % [facility] Eosinophils Abs 0.0 0.0 - 0.4 x10(3)/mc L [facility] Basophil % 0.4 % [facility] Baso Absolute 0.0 0.0 - 0.1 x10(3)/mc L [facility] Immature Gran % 1.30 % [facility] Comment: Immature granulocytes(IG's)percentage and absolute count will include metamyelocytes, myelocytes, and promyelocytes. Blood smears from CBCs yielding IG's will be scanned manually for concordance. If this scan disagrees with the automated IG or if promyelocytes are noted, a manual differential will be performed. Immature Gran Absolute 0.09(H) 0.00 - 0.04 x10(3)/mc L [facility] Blood 05/11/2023 4:42 AM EDT 05/11/2023 4:49 AM EDT Narrative Resulting Agency Comment Spec In Lab Klaudia Reid MD HEMATOLOGY OR DERABLES Performing Organization Address City/State/[facility] Co de Phone Number [facility] [place] [address] * (ABNORMAL) Hemogram (05/11/2023 4:42 AM EDT) White Blood Cell 7.0 4.0 - 9.5 x10(3)/mc L [facility] Red Blood Cell 3.44(L) 4.00 - 5.21 x10(6)/mc L [facility] Hemoglobin 11.1(L) 11.7 - 15.5 g/dL [facility] Hematocrit 32.7(L) 35.7 - 45.8 % [facility] Mean Cell Volume 95.1(H) 82.6 - 94.4 fL [facility] Mean Cell Hemoglobin 32.3(H) 27.1 - 32.0 pg [facility] Mean Cell Hemoglobin Concentration 33.9 31.7 - 35.0 g/dL [facility] Platelet 165 145 - 357 x10(3)/mc L [facility] RDW Standard Deviation 43.1 37.0 - 46.0 fL [facility] RDW coefficient of variation 12.7 11.5 - 14.1 % [facility] Mean Platelet Volume 10.1 7.6 - 12.9 fL [facility] NRBC% auto 0.0 % [facility] NRBC Absolute 0.000 0.000 - 0.000 x10(3)/mc L [facility] Blood 05/11/2023 4:42 AM EDT 05/11/2023 4:49 AM EDT Narrative Resulting Agency Comment Spec In Lab Klaudia Reid MD HEMATOLOGY OR DERABLES Performing Organization Address City/State/[facility] Co de Phone Number [facility] [address] * Heparin (unfractionated) Level (05/11/2023 4:42 AM EDT) UF Heparin 0.46 IU/mL [facility] [...] Lab Radha Hollins MD HEMATOLOGY ORDERAB LES [facility] [place] [address] * (ABNORMAL) Comprehensive metabolic panel (non-fasting) (05/11/2023 4:42 AM EDT) Glucose 143 65 - 199 mg/dL [facility] Comment:Diabetes: >=200 mg/d L plus symptoms Blood Urea Nitrogen 42(H) 8 - 18 mg/dL [facility] Creatinine 1.24(H) 0.70 - 1.20 mg/dL [facility] Sodium 134(L) 135 - 145 mmol/L [facility] Potassium 4.6 3.5 - 5.0 mmol/L [facility] Comment: Please note: ??Patients with WBC >100,000 may have falsely elevated Potassium levels. ??For accurate Potassium quantification in these patients send serum separator tube (gold top) for subsequent determinations. ??Contact the Clinical Chemistry Laboratory if there are any questions. Chloride 99 98 - 107 mmol/L [facility] Carbon Dioxide 14(L) 22 - 31 mmol/L [facility] Anion Gap 21(H) 5 - 15 mmol/L [facility] Calcium 9.6 8.5 - 10.5 mg/dL [facility] Protein, Total 7.2 6.1 - 8.0 g/dL [facility] Albumin 3.7 3.2 - 5.2 g/dL [facility] Aspartate Aminotransferase 144(H) 0 - 30 unit/L [facility] Comment:result rechecked-ssc Alanine Aminotransferase 130(H) 0 - 30 unit/L [facility] Comment:result rechecked-ssc Alkaline Phosphatase 72 35 - 105 unit/L [facility] Bilirubin, Total 0.8 0.2 - 1.3 mg/dL [facility] Est Glomerular Filtration Rate 48(L) >=60 mL/min/1. 73 m?? [facility] Comment: This patient's estimated GFR [...] [facility] [place]/ZIP Co de Phone Number [facility] [place] [phone] * EKG 12 Lead (05/10/2023 1:16 PM EDT) Ventricular rate 118 BPM MUSE SYSTEM Atrial Rate 118 BPM MUSE SYSTEM P-R Interval 152 ms MUSE SYSTEM QRS Duration 104 ms MUSE SYSTEM Q-T Interval 316 ms MUSE SYSTEM QTC Calculated (Bezet) 442 ms MUSE SYSTEM Calculated P [place] 29 degrees MUSE SYSTEM Calculated R [place] 18 degrees MUSE SYSTEM Calculated T [place] -173 degrees MUSE SYSTEM INTERPRETATION Sinus tachycardia [...] Anterior leads Confirmed by MD Villareal Danette ([id number]) on 05/10/2023 8:47:46 PM MUSE SYSTEM 05/10/2023 1:16 PM EDT 05/10/2023 8:47 PM EDT Juan Luis Gonzalez MD ECG ORDERABLES Performing Organization Address City/[facility]/ZIP Co de Phone Number MUSE SYSTEM * Lactate, whole blood, send to lab ([facility] [place]) (05/10/2023 11:52 AM EDT) Pathologist [facility] Lactate WB 1.8 0.5 - 2.2 mmol/L [facility] Blood 05/10/2023 11:5 2 AM EDT 05/10/2023 12:13 PM EDT Narrative Resulting Agency Comment Spec In Lab Juan Luis Gonzalez MD CHEMISTRY ORDERABLES [facility] One [facility] [place] [address] * XR Chest One [place] (05/10/2023 11:16 [...] who have questions please contact the health administrator health care facility that requested your imaging first. ? Electronically signed by: ALIX RUVALCABA MD, [facility] ([phone]), at 05/10/2023 1:25 PM Narrative 05/10/2023 1:25 [...] patients who have questions please contactthe health administrator health care facility that requested your imaging first. Electronically signed by: ALIX RUVALCABA MD, [facility]([phone]), at 05/10/2023 1:25 PM Juan Luis Gonzalez MD IMG DX ORDERABLES * EKG 12 Lead (05/10/2023 7:59 AM EDT) Ventricular rate 115 BPM MUSE SYSTEM Atrial Rate 115 BPM MUSE SYSTEM P-R Interval 142 ms MUSE SYSTEM QRS Duration 102 ms MUSE SYSTEM Q-T Interval 322 ms MUSE SYSTEM QTC Calculated (Bezet) 445 ms MUSE SYSTEM Calculated P [place] 36 degrees MUSE SYSTEM Calculated R [place] 28 degrees MUSE SYSTEM Calculated T [place] -119 degrees MUSE SYSTEM INTERPRETATION Sinus tachycardia with frequent Premature ventricular complexes and Fusion complexes ST & T wave abnormality, consider lateral ischemia Abnormal ECG When compared with ECG of 08-MAY-2023 15:51, No significant change was found I personally reviewed the tracing and edited the fellows interpretation Confirmed by fellow MD Welsh Hanyuan ([id number]) on 05/11/2023 6:19:54 AM Confirmed by MD Ugalde Hannah ([id number]) on 05/11/2023 3:18:56 PM MUSE SYSTEM 05/10/2023 7:59 AM EDT 05/11/2023 3:18 PM EDT Radha Hollins MD ECG ORDERABLES MUSE SYSTEM * (ABNORMAL) Differential, Automated (05/10/2023 2:28 AM EDT) Neutrophil % 77.1 % [facility] Neutrophil Absolute 4.01 1.70 - 6.10 x10(3)/mc L [facility] Lymph % 14.0 % [facility] Lymphocytes Abs 0.7(L) 0.9 - 3.2 x10(3)/mc L [facility] Monocyte % 7.7 % [facility] Monocyte Abs 0.4 0.3 - 0.9 x10(3)/mc L [facility] Eos % 0.4 % [facility] Eosinophils Abs 0.0 0.0 - 0.4 x10(3)/mc L [facility] Basophil % 0.4 % [facility] Baso Absolute 0.0 0.0 - 0.1 x10(3)/ L [facility] Immature Gran % 0.40 % [facility] Comment: Immature granulocytes(IG's)percentage and absolute count will include metamyelocytes, myelocytes, and promyelocytes. Blood smears from CBCs yielding IG's will be scanned manually for concordance. If this scan disagrees with the automated IG or if promyelocytes are noted, a manual differential will be performed. Immature Gran Absolute 0.02 0.00 - 0.04 x10(3)/ L [facility] Blood 05/10/2023 2:28 AM EDT 05/10/2023 2:57 AM EDT Narrative Resulting Agency Comment Spec In Lab Klaudia Reid MD HEMATOLOGY OR DERABLES [facility] [place] [address] * (ABNORMAL) Hemogram (05/10/2023 2:28 AM EDT) White Blood Cell 5.2 4.0 - 9.5 x10(3)/mc L [facility] Red Blood Cell 3.11(L) 4.00 - 5.21 x10(6)/mc L [facility] Hemoglobin 10.2(L) 11.7 - 15.5 g/dL [facility] Hematocrit 30.2(L) 35.7 - 45.8 % [facility] Mean Cell Volume 97.1(H) 82.6 - 94.4 fL [facility] Mean Cell Hemoglobin 32.8(H) 27.1 - 32.0 pg [facility] Mean Cell Hemoglobin Concentration 33.8 31.7 - 35.0 g/dL [facility] Platelet 151 145 - 357 x10(3)/mc L [facility] RDW Standard Deviation 44.9 37.0 - 46.0 fL [facility] RDW coefficient of variation 12.8 11.5 - 14.1 % [facility] Mean Platelet Volume 9.8 7.6 - 12.9 fL [facility] NRBC% auto 0.0 % [facility] NRBC Absolute 0.000 0.000 - 0.000 x10(3)/ L [facility] Blood 05/10/2023 2:28 AM EDT 05/10/2023 2:57 AM EDT Narrative Resulting Agency Comment Spec In Lab Klaudia Reid MD HEMATOLOGY OR DERABLES [facility] [place] [address] * (ABNORMAL) Comprehensive metabolic panel (non-fasting) (05/10/2023 2:28 AM EDT) Glucose 100 65 - 199 mg/dL [facility] Comment:Diabetes: >=200 mg/d L plus symptoms Blood Urea Nitrogen 30(H) 8 - 18 mg/dL [facility] Creatinine 0.90 0.70 - 1.20 mg/dL [facility] Sodium 134(L) 135 - 145 mmol/L [facility] Potassium 4.1 3.5 - 5.0 mmol/L [facility] Comment: Please note: ??Patients with WBC >100,000 may have falsely elevated Potassium levels. ??For accurate Potassium quantification in these patients send serum separator tube (gold top) for subsequent determinations. ??Contact the Clinical Chemistry Laboratory if there are any questions. Chloride 102 98 - 107 mmol/L [facility] Carbon Dioxide 20(L) 22 - 31 mmol/L [facility] Anion Gap 12 5 - 15 mmol/L [facility] Calcium 9.3 8.5 - 10.5 mg/dL [facility] Protein, Total 6.4 6.1 - 8.0 g/dL [facility] Albumin 3.7 3.2 - 5.2 g/dL [facility] Aspartate Aminotransferase 24 0 - 30 unit/L [facility] Alanine Aminotransferase 14 0 - 30 unit/L [facility] Alkaline Phosphatase 70 35 - 105 unit/L [facility] Bilirubin, Total 0.5 0.2 - 1.3 mg/dL [facility] Est Glomerular Filtration Rate 70 >=60 mL/min/1. 73 m?? [facility] Comment: This patient's estimated GFR [...] Lab Radha Hollins MD CHEMISTRY ORDERABL ES [facility] [place] [address] * Heparin (unfractionated) Level (05/10/2023 2:28 AM EDT) UF Heparin 0.37 IU/mL [facility] Comment: Heparin (anti-Xa) [...] Lab Radha Hollins MD HEMATOLOGY ORDERAB LES [facility] [place] [address] * (ABNORMAL) Differential, Automated (05/09/2023 4:00 AM EDT) Neutrophil % 81.7 % [facility] Neutrophil Absolute 5.26 1.70 - 6.10 x10(3)/mc L [facility] Lymph % 10.7 % [facility] Lymphocytes Abs 0.7(L) 0.9 - 3.2 x10(3)/mc L [facility] Monocyte % 6.5 % [facility] Monocyte Abs 0.4 0.3 - 0.9 x10(3)/mc L [facility] Eos % 0.5 % [facility] Eosinophils Abs 0.0 0.0 - 0.4 x10(3)/mc L [facility] Basophil % 0.3 % [facility] Baso Absolute 0.0 0.0 - 0.1 x10(3)/mc L [facility] Immature Gran % 0.30 % [facility] Comment: Immature granulocytes(IG's)percentage and absolute count will include metamyelocytes, myelocytes, and promyelocytes. Blood smears from CBCs yielding IG's will be scanned manually for concordance. If this scan disagrees with the automated IG or if promyelocytes are noted, a manual differential will be performed. Immature Gran Absolute 0.02 0.00 - 0.04 x10(3)/mc L [facility] Blood 05/09/2023 4:00 AM EDT 05/09/2023 4:19 AM EDT Narrative Resulting Agency Comment Spec In Lab Klaudia Reid MD HEMATOLOGY OR DERABLES Performing Organization Address City/[facility]/ZIP Co de Phone Number [facility] [place] [address] * (ABNORMAL) Hemogram (05/09/2023 4:00 AM EDT) White Blood Cell 6.4 4.0 - 9.5 x10(3)/[facility] Red Blood Cell 3.15(L) 4.00 - 5.21 x10(6)/[facility] Hemoglobin 10.2(L) 11.7 - 15.5 g/dL [facility] Hematocrit 30.3(L) 35.7 - 45.8 % [facility] Mean Cell Volume 96.2(H) 82.6 - 94.4 fL [facility] Mean Cell Hemoglobin 32.4(H) 27.1 - 32.0 pg [facility] Mean Cell Hemoglobin Concentration 33.7 31.7 - 35.0 g/dL [facility] Platelet 151 145 - 357 x10(3)/ L [facility] RDW Standard Deviation 44.7 37.0 - 46.0 fL [facility] RDW coefficient of variation 12.8 11.5 - 14.1 % [facility] Mean Platelet Volume 9.4 7.6 - 12.9 fL [facility] NRBC% auto 0.0 % [facility] NRBC Absolute 0.000 0.000 - 0.000 x10(3)/ L [facility] Blood 05/09/2023 4:00 AM EDT 05/09/2023 4:19 AM EDT Narrative Resulting Agency Comment Spec In Lab Klaudia Reid MD HEMATOLOGY OR DERABLES Performing Organization Address City/[facility]/ZIP Co de Phone Number [facility] [place] [address] * Heparin (unfractionated) Level (05/09/2023 4:00 AM EDT) UF Heparin 0.47 IU/mL [facility] Comment: Heparin (anti-Xa) [...] Lab Radha Hollins MD HEMATOLOGY ORDERAB LES [facility] [address] * (ABNORMAL) Comprehensive metabolic panel (non-fasting) (05/09/2023 4:00 AM EDT) Glucose 108 65 - 199 mg/dL [facility] Comment:Diabetes: >=200 mg/d L plus symptoms Blood Urea Nitrogen 31(H) 8 - 18 mg/dL [facility] Creatinine 1.03 0.70 - 1.20 mg/dL [facility] Sodium 137 135 - 145 mmol/L [facility] Potassium 4.4 3.5 - 5.0 mmol/L [facility] Comment: Please note: ??Patients with WBC >100,000 may have falsely elevated Potassium levels. ??For accurate Potassium quantification in these patients send serum separator tube (gold top) for subsequent determinations. ??Contact the Clinical Chemistry Laboratory if there are any questions. Chloride 102 98 - 107 mmol/L [facility] Carbon Dioxide 20(L) 22 - 31 mmol/L [facility] Anion Gap 15 5 - 15 mmol/L [facility] Calcium 9.3 8.5 - 10.5 mg/dL [facility] Protein, Total 6.6 6.1 - 8.0 g/dL [facility] Albumin 3.8 3.2 - 5.2 g/dL [facility] Aspartate Aminotransferase 32(H) 0 - 30 unit/L [facility] Alanine Aminotransferase 18 0 - 30 unit/L [facility] Alkaline Phosphatase 78 35 - 105 unit/L [facility] Bilirubin, Total 0.5 0.2 - 1.3 mg/dL [facility] Est Glomerular Filtration Rate 60 >=60 mL/min/1. 73 m?? [facility] Comment: This patient's estimated GFR [...] [facility] [place] [address] * (ABNORMAL) pro-Brain Natriuretic Peptide (05/08/2023 4:00 PM EDT) NT-proBNP 25,503(H) <=124 pg/mL [facility] Blood Venous Draw / Unknown 05/08/2023 4:00 PM EDT 05/08/2023 4:25 PM EDT Narrative Resulting Agency Comment Spec In Lab Juan Luis Gonzalez MD CHEMISTRY ORDERABLES Performing Organization Address City/[facility]/ZIP Co de Phone Number [facility] [place] [address] * Magnesium (05/08/2023 4:00 PM EDT) Pathologist [facility] Magnesium 0.82 0.69 - 1.07 mmol/L [facility] Blood 05/08/2023 4:00 PM EDT 05/08/2023 4:06 PM EDT Narrative Resulting Agency Comment Spec In Lab Enrique Chua MD CHEMISTRY ORDERABLES Performing Organization Address [facility] de Phone Number [facility] [place] [address] * Potassium (05/08/2023 4:00 PM EDT) [facility] Potassium 3.9 3.5 - 5.0 mmol/L [facility] Comment: Please note: ??Patients with [...] ORDERABL ES Performing Organization Address [facility] de Phone Number [facility] [place] [address] * Heparin (unfractionated) Level (05/08/2023 4:00 PM EDT) Pathologist [facility] UF Heparin 0.43 IU/mL [facility] Comment: Heparin (anti-Xa) [...] Lab Radha Hollins MD HEMATOLOGY ORDERAB LES [facility] [place] [address] * EKG 12 Lead (05/08/2023 3:51 PM EDT) Ventricular rate 98 BPM MUSE SYSTEM Atrial Rate 98 BPM MUSE SYSTEM P-R Interval 150 ms MUSE SYSTEM QRS Duration 102 ms MUSE SYSTEM Q-T Interval 358 ms MUSE SYSTEM QTC Calculated (Bezet) 457 ms MUSE SYSTEM Calculated P [place] 38 degrees MUSE SYSTEM Calculated R [place] 48 degrees MUSE SYSTEM Calculated T [place] -112 degrees MUSE SYSTEM INTERPRETATION Sinus rhythm with frequent and consecutive Premature ventricular and fusion complexes Septal infarct , age undetermined ST & T wave abnormality, consider anterolateral ischemia Abnormal ECG When compared with ECG of 09-NOV-2022 11:17, T wave inversion now evident in Anterolateral leads Confirmed by MD Harshil, Enrique Bell ([id number]) on 05/10/2023 8:11:46 AM MUSE SYSTEM 05/08/2023 3:51 PM EDT 05/10/2023 8:11 AM EDT Radha Hollins MD ECG ORDERABLES Performing Organization Address City/[facility]/ZIP Co de Phone Number MUSE SYSTEM * (ABNORMAL) Differential, Automated (05/08/2023 11:38 AM EDT) Neutrophil % 71.3 % [facility] Neutrophil Absolute 2.91 1.70 - 6.10 x10(3)/mc L [facility] Lymph % 19.1 % [facility] Lymphocytes Abs 0.8(L) 0.9 - 3.2 x10(3)/mc L [facility] Monocyte % 9.0 % [facility] Monocyte Abs 0.4 0.3 - 0.9 x10(3)/mc L [facility] Eos % 0.2 % [facility] Eosinophils Abs 0.0 0.0 - 0.4 x10(3)/mc L [facility] Basophil % 0.2 % [facility] Baso Absolute 0.0 0.0 - 0.1 x10(3)/mc L [facility] Immature Gran % 0.20 % [facility] Comment: Immature granulocytes(IG's)percentage and absolute count will include metamyelocytes, myelocytes, and promyelocytes. Blood smears from CBCs yielding IG's will be scanned manually for concordance. If this scan disagrees with the automated IG or if promyelocytes are noted, a manual differential will be performed. Immature Gran Absolute 0.01 0.00 - 0.04 x10(3)/ L [facility] Blood 05/08/2023 11:3 8 AM EDT 05/08/2023 11:44 AM EDT Narrative Resulting Agency Comment Spec In Lab Lincoln Sal MD HEMATOLOGY ORDERA BLES [facility] [address] * (ABNORMAL) Hemogram (05/08/2023 11:38 AM EDT) White Blood Cell 4.1 4.0 - 9.5 x10(3)/mc L [facility] Red Blood Cell 3.05(L) 4.00 - 5.21 x10(6)/mc L [facility] Hemoglobin 10.2(L) 11.7 - 15.5 g/dL [facility] Hematocrit 29.6(L) 35.7 - 45.8 % [facility] Mean Cell Volume 97.0(H) 82.6 - 94.4 fL [facility] Mean Cell Hemoglobin 33.4(H) 27.1 - 32.0 pg [facility] Mean Cell Hemoglobin Concentration 34.5 31.7 - 35.0 g/dL [facility] Platelet 136(L) 145 - 357 x10(3)/mc L [facility] RDW Standard Deviation 44.3 37.0 - 46.0 fL [facility] RDW coefficient of variation 12.6 11.5 - 14.1 % [facility] Mean Platelet Volume 9.4 7.6 - 12.9 fL [facility] NRBC% auto 0.0 % [facility] NRBC Absolute 0.000 0.000 - 0.000 x10(3)/mc L [facility] Blood 05/08/2023 11:3 8 AM EDT 05/08/2023 11:44 AM EDT Narrative Resulting Agency Comment Spec In Lab Lincoln Sal MD HEMATOLOGY ORDERA BLES Performing Organization Address City/[facility] Co de Phone Number [facility] [place] [address] * TSH (05/08/2023 11:38 AM EDT) Thyroid Stimulating Hormone 1.27 0.27 - 4.20 mcIU/mL [facility] Comment: Reference Interval (mcIU/mL): Females: ??First Trimester: 0.23-3.88 ??Second Trimester: 0.22-3.90 ??Third Trimester: 0.44-4.66 Blood 05/08/2023 11:3 8 AM EDT 05/08/2023 11:44 AM EDT Narrative Resulting Agency Comment Spec In Lab Enrique Chua MD CHEMISTRY ORDERABLES Performing Organization Address [facility] Co de Phone Number [facility] [address] * (ABNORMAL) Phosphorus (05/08/2023 11:38 AM EDT) Phosphorus 4.7(H) 2.5 - 4.5 mg/dL [facility] Blood 05/08/2023 11:3 8 AM EDT 05/08/2023 11:44 AM EDT Narrative Resulting Agency Comment Spec In Lab Enrique Chua MD CHEMISTRY ORDERABLES Performing Organization Address City/[facility] Co de Phone Number [facility] [address] * Magnesium (05/08/2023 11:38 AM EDT) Magnesium 0.76 0.69 - 1.07 mmol/L [facility] Blood 05/08/2023 11:3 8 AM EDT 05/08/2023 11:44 AM EDT Narrative Resulting Agency Comment Spec In Lab Enrique Chua MD CHEMISTRY ORDERABLES [facility] [place] [address] * (ABNORMAL) Basic Metabolic Panel (non-fasting) (05/08/2023 11:38 AM EDT) Glucose 97 65 - 199 mg/dL [facility] Comment:Diabetes: >=200 mg/d L plus symptoms Blood Urea Nitrogen 27(H) 8 - 18 mg/dL [facility] Creatinine 1.02 0.70 - 1.20 mg/dL [facility] Sodium 139 135 - 145 mmol/L [facility] Potassium 4.2 3.5 - 5.0 mmol/L [facility] Comment: Please note: ??Patients with WBC >100,000 may have falsely elevated Potassium levels. ??For accurate Potassium quantification in these patients send serum separator tube (gold top) for subsequent determinations. ??Contact the Clinical Chemistry Laboratory if there are any questions. Chloride 105 98 - 107 mmol/L [facility] Carbon Dioxide 20(L) 22 - 31 mmol/L [facility] Anion Gap 14 5 - 15 mmol/L [facility] Calcium 9.4 8.5 - 10.5 mg/dL [facility] Est Glomerular Filtration Rate 60 >=60 mL/min/1. 73 m?? [facility] Comment: This patient's estimated GFR [...] In Lab Enrique Chua MD CHEMISTRY ORDERABLES [facility] [place] [address] * ECHO COMPLETE (05/08/2023 11:02 AM EDT) EF 25 HEARTCarZumer SYSTEM Anatomical Region Laterality Modality Cardiac Other 05/08/2023 10:0 3 AM EDT Narrative 05/08/2023 11:51 AM EDT ? Echocardiogram Report Name: PURNIMA THACKER ?Study Date: 05/08/2023 10:03 AMBP: 92/64 mmHg ? Patient Location: [facility]^CV29^A : 1955 ? Height: 155 cm ? Account: [id number] Age: 67 yrs ? Weight: 78 kg Gender: Female ?BSA: 1.8 m2 Ordering Physician: ENRIQUE CHUA Referring Physician: MARIO ALBERTO CHIN Performed By: CHUCKIE Canchola Reason For Study: SAVR Stenosis Exam Location: [facility]. Interpretation Summary -Left ventricle is [...] worsening stenosis. Mitral regurgitation is similar. Procedure Complete-[id number]. Satisfactory quality. There is normal sinus rhythm. [...] Study Date: 0:03 AMBP: 92/64 mmHg Patient Location:[facility]^CV29^A : 1955 Height: 155 cm Account: [id number] Age: 67 yrs Weight: 78 kg Gender: Female BSA: 1.8 m2 Ordering Physician: ENRIQUE CHUA Referring Physician: MARIO ALBERTO CHIN Performed By: CHUCKIE Canchola Reason For Study: SAVR Stenosis Exam Location: [facility]. Interpretation Summary -Left ventricle is [...] suggestsworsening stenosis. Mitral regurgitation is similar. Procedure Complete-[id number]. Satisfactory quality. There is normal sinus rhythm. [...] 9:45 AM EDT) UF Heparin 0.54 IU/mL [facility] Comment: Heparin (anti-Xa) [...] Lab Enrique Chua MD HEMATOLOGY ORDERABLE S [facility] [place] [address] documented in this encounter Visit Diagnoses Diagnosis S/P TAVR (transcatheter aortic valve replacement)- Primary Aortic valve stenosis, etiology of cardiac valve disease unspecified Heart failure with reduced ejection fraction due to heart valve disease Mild coronary artery disease by [facility] 11/09/2022 Mixed connective tissue disease Other specified [...] [facility] Stenosis of prosthetic aortic valve (Bovine [...] Oral, EVERY 6 HOURS PRN, Starting on 05/12/23 at 0944, Until Marquita 05/13/23 at 1328, [...] dose on Wed05/12/23 at 1030, Until Discontinued, [place] teeth, Routine Given 05/12/2023 10:04 AM EDT [...] Wed05/12/23 at 1030, Until Wed05/13/23 at 0826, Begin if PHENYLephrine and/or vasopressin [...] at 0831, Side port TKO rate, per [facility] flush protocol Rate/Dose Verify 05/13/2023 6:00 AM EDT 10 mL/hr 10 mL/hr Rate/Dose Verify 05/13/2023 4:00 AM EDT 10 mL/hr 10 mL/h r Rate/Dose Verify 05/13/2023 2:00 AM EDT 10 mL/hr 10 mL/h r sodium chloride 0.9% infusion 10-30 mL/hr, Intravenous, DAILY PRN, Starting on Wed05/12/23 at 0944, Until Wed05/17/23 at 0831, Side port TKO rate, per [facility] flush protocol. Rate/Dose Verify 05/17/2023 8:00 [...] - Comment: duplicate)0844 (Given - Provider: Gabino Calhoun, VALDO)1738 (Given - Provider: Gabino Calhoun, VALDO) 0130 [...] Routine 0827 (Given - Provider: Kia Gallego, RN) ticagrelor (Brilinta) tablet 90 mg 90 [...] aspirin? Yes 835 (Given - Provider: Gabino Calhoun, RN)2053 (Given - Provider: Favian Mckeon, RN) [...] post-op day 1 in the AM Give FL if unable to take PO, Routine Group [...] Routine documented in this encounter Care Teams Audio Video Tech Relationship Specialty Start Date End Date Magdalena Acosta MD [address] [place] [address] PCP - General Family Medicine 02/05/23 documented as of this encounter
--- OUTSIDE RECORDS SUMMARY | 2024-05-16 15:37 | XMS_ITS | Encounter Summary ---
[place] [address] Care Team Providers Care Tax Compliance Representative Name Role Phone Magdalena Acosta MD Primary Care Provider [phone] Reason for Visit * Auth/Cert (Routine) Specialty Diagnoses / Procedures Referred By Contac t Referred To Contact Diagnoses Symptomatic severe aortic stenosis with low ejection fraction NSTEMI, CHF Haris Chua MD [facility] [place] [address] [facility] Referral ID Status Reason Start Date Expiration Date Visits Re quested Visits Authorized [id number] 1 1 Encounter Details Date Type Department Care Team (Late st Contact Info) Description 05/12/2023 7:35 AM EDT Anesthesia Event [employer] [place] [address] Lynda Mcgowan MD [facility] [place] [address] Alie Pakr MD [facility] [place] [address] Anesthesia Record Procedure Summary Procedure Name Responsible [...] cephalic vein (lateral side of arm), left; [id number] catheter system; Anatomical Landmarks; US Not Used; [...] Procedure Summary Date: 05/12/23 Room / Location: [facility]ER [facility]PER / [facility] Anesthesia Start: 734 [...] All Anesthesia Providers: Anesthesiologist: Lynda Mcgowan MD Church Organist: Nico Graham MD Vitals Value Taken Time [...] 05/08/2023 ??? Mild coronary artery disease by [facility] 11/09/2022 05/08/2023 ??? Heart failure with [...] S&I N/A 11/09/2022 CORONARY ANGIOGRAPHY; W [facility],POSSIBLE PCI (WRVU 5.6) performed by Nitesh Escobedo MD at [facility] ??? PRO AORTOPLAS FOR SUPRAVALV STEN N/A 09/21/2016 @AORTOPLASTY FOR SUPRAVALVULAR STENOSIS (WRVU 29.33) performed by Alirio Esparza MD at [facility] MAIN OR ??? PRO REPLACEMENT PROSTHETIC AORTIC VALVE OPEN W CARDIOPULMONARY BYPASS HOMOGRF/STENT N/A 09/21/2016 @REPLACE AORTIC VALVE, OPEN, W\CPB, W\PROSTHETIC VALVE (WRVU 41.32) performed by Alirio Esparza MD at [facility] MAIN OR Social History Tobacco [...] 3 general, with a(n) intravenous induction Add-on [id number] TAVR. In cardiogenic shock. Has arterial line, [...] PM EDT Hospital Encounter [facility] [place] [address] Markel Borjas MD [facility] [address] [place] [address] 05/29/2024 2:00 PM EDT - 05/29/2024 2:43 PM EDT Surgery Outpatient [place] [phone] Markel Borjas MD [facility] DR [place] [address] (OSC MSURG) BONE MARROW BIOPSY AND ASPIRATION; DIAGNOSTIC (WRVU 1.44) 06/23/2024 2:00 PM EST Office Visit [place] [address] Markel Borjas MD [facility] DR [place] [address] 03/01/2025 4:15 PM EDT Office Visit Dermatology at [address] [place] [phone] Marek Bonilla MD [address] [place] [address] Scheduled Procedures Name Priority Associated Diagnoses Date/Ti [...] mL/hr documented in this encounter Care Teams Tax Compliance Representative Relationship Specialty Start Date End Date Magdalena Acosta MD [address] [place] [address] PCP - General Family Medicine 02/05/23 documented as of this encounter
--- OUTSIDE RECORDS SUMMARY | 2024-05-16 15:37 | XMS_ITS | Encounter Summary ---
Author Organization [facility] [place] [address] Care Team Providers Care Director Inbound Sales Name Role Phone Magdalena Acosta MD Primary Care Provider [phone] Encounter Details Date Type Department Care Team [...] PM EDT Hospital Encounter [place] [address] Markel Borjas MD [facility] [address] [place] [address] 05/29/2024 2:00 PM EDT - 05/29/2024 2:43 PM EDT Surgery [place] [address] Markel Borjas MD [facility] DR [place] [address] (OSC MSURG) BONE MARROW BIOPSY AND ASPIRATION; DIAGNOSTIC (WRVU 1.44) 06/23/2024 2:00 PM EST Office Visit Hematology [place] [phone] Markel Borjas MD [facility] [place] [address] 03/01/2025 4:15 PM EDT Office Visit Dermatology at [place] [address] [place] [phone] Marek Bonilla MD [address], [address] DERMATOLOGY [place], [place] [phone] Scheduled Procedures Name Priority Associated Diagnoses Date/Ti me (OSC MSURG) BONE MARROW BIOPSY AND ASPIRATION; DIAGNOSTIC (WRVU 1.44) Anemia, in pt with longstanding neutropenia 05/29/2024 2:00 PM EDT documented as of this encounter Visit Diagnoses Not on filedocumented in this encounter Care Teams Director Inbound Sales Relationship Specialty Start Date End Date Magdalena Acosta MD [address] [place] [address] PCP - General Family Medicine 02/05/23 documented as of this encounter
--- OUTSIDE RECORDS SUMMARY | 2024-05-16 15:38 | XMS_ITS | Encounter Summary ---
Author Organization [facility] Address [facility] [place] [address] Care Team Providers Care Patient Support Specialist Name Role Phone Deborah Quiroga ANURAG Primary Care Provider [phone] Encounter Details Date Type Department Care Team (Late st Contact Info) Description 01/14/2023 Refill Dermatology at [address] [address] Lupe Connor RN Social History [...] She would like the medication called into [facility] in [facility]. Discussed with [...] PM EDT Hospital Encounter [place] [phone] Markel Borjas MD [facility] [address] HEMATOLOGY [place] [address] 05/29/2024 2:00 PM EDT - 05/29/2024 2:43 PM EDT Surgery [place] [phone] Markel Borjas MD [facility] DR HEM[place]OLOG[place] [address] (OSC MSURG) BONE MARROW BIOPSY AND ASPIRATION; DIAGNOSTIC (WRVU 1.44) 06/23/2024 2:00 PM EST Office Visit [place]ology [place] [phone] Markel Borjas MD [facility] [address] HEM[place] [address] 03/01/2025 4:15 PM EDT Office Visit Dermatology at [place] [address] [place] [phone] Marek Bonilla MD [address] [place] [address] Scheduled Procedures Name Priority Associated Diagnoses Date/Ti me (OSC MSURG) BONE MARROW BIOPSY AND ASPIRATION; DIAGNOSTIC (WRVU 1.44) Anemia, in pt with longstanding neutropenia 05/29/2024 2:00 PM EDT documented as of this encounter Visit Diagnoses Not on filedocumented in this encounter Care Teams Patient Support Specialist Relationship Specialty Start Date End Date Deborah Quiroga, MANAGER CREDIT COLLECTIONS PCP - General Family Medicine 03/24/16 02/04/23 documented as of this encounter
--- OUTSIDE RECORDS SUMMARY | 2024-05-16 15:38 | XMS_ITS | Encounter Summary ---
[place] [address] Care Team Providers Care Nursing Center Tutor Name Role Phone Magdalena Acosta MD Primary Care Provider [phone] Reason for Visit * Reason Comments Skin Lesion Encounter Details Date Type Department Care Team (Late st Contact Info) Description 04/20/2023 10:00 AM EDT Office Visit Dermatology at [address] [phone] Marek Bonilla MD [address] [facility], [place] [address] Seborrheic keratosis Social History Tobacco Use Types [...] cutaneous and ocular 3. Previously told by cutter gas that she had corneal tears from her [...] PM EDT Hospital Encounter [place] [address] Markel Borjas MD [facility] [address] [place] [address] 05/29/2024 2:00 PM EDT - 05/29/2024 2:43 PM EDT Surgery [place] [phone] Markel Borjas MD [facility] DR [place] [address] (OSC MSURG) BONE MARROW BIOPSY AND ASPIRATION; DIAGNOSTIC (WRVU 1.44) 06/23/2024 2:00 PM EST Office Visit Hematology [place] [phone] Markel Borjas MD [facility] DR [place] [address] 03/01/2025 4:15 PM EDT Office Visit Dermatology at [address] [address] Marek Bonilla MD [address] [place] [address] RD, [place] [address] Scheduled Procedures Name Priority Associated Diagnoses Date/Ti me (OSC MSURG) BONE MARROW BIOPSY AND ASPIRATION; DIAGNOSTIC (WRVU 1.44) Anemia, in pt with longstanding neutropenia 05/29/2024 2:00 PM EDT documented as of this encounter Visit Diagnoses Diagnosis Seborrheic keratosis Other seborrheic keratosis documented in this encounter Care Teams Nursing Center Tutor Relationship Specialty Start Date End Date Magdalena Acosta MD [address] [place] [address] PCP - General Family Medicine 02/05/23 documented as of this encounter
--- OUTSIDE RECORDS SUMMARY | 2024-05-16 15:38 | XMS_ITS | Encounter Summary ---
Author Organization [facility] [place] [address] Care Team Providers Care Rotary Drill Rig Operator Name Role Phone Magdalena Acosta MD Primary Care Provider [phone] Encounter Details Date Type Department Care Team (Late st Contact Info) Description 03/29/2023 Notes Only Cardiology at [address] [phone] Vahid Plasencia, RN Social History Tobacco Use [...] 82/51; Mild AR; Moderate MR; Trace TR [facility] 11/09/2022: Non obstructive CAD STS 4.1 Plan:Schedule SDM clinic, diagnostics and frailty assessment. documented in this encounter Plan of Treatment Upcoming Encounters Date Type Department Care Team (Late st Contact Info) Description 05/29/2024 2:00 PM EDT Hospital Encounter [place] [phone] Markel Borjas MD [facility] DR [place] [address] 05/29/2024 2:00 PM EDT - 05/29/2024 2:43 PM EDT Surgery [place] [place] [phone] Markel Borjas MD [facility] DR [place] [address] (OSC MSURG) BONE MARROW BIOPSY AND ASPIRATION; DIAGNOSTIC (WRVU 1.44) 06/23/2024 2:00 PM EST Office Visit Hematology [place] [phone] Markel Borjas MD [facility] DR [place] [address] 03/01/2025 4:15 PM EDT Office Visit Dermatology at [place] [address] [place] [phone] Marek Bonilla MD [address], [place] [address] Scheduled Procedures Name Priority Associated Diagnoses Date/Ti me (OSC MSURG) BONE MARROW BIOPSY AND ASPIRATION; DIAGNOSTIC (WRVU 1.44) Anemia, in pt with longstanding neutropenia 05/29/2024 2:00 PM EDT documented as of this encounter Visit Diagnoses Not on filedocumented in this encounter Care Teams Rotary Drill Rig Operator Relationship Specialty Start Date End Date Magdalena Acosta MD [address] [place] [address] PCP - General Family Medicine 02/05/23 documented as of this encounter
--- OUTSIDE RECORDS SUMMARY | 2024-05-16 15:38 | XMS_ITS | Encounter Summary ---
[place] [address] Care Team Providers Care Contact Lens Edge Buffer Name Role Phone Magdalena Acosta MD Primary Care Provider [phone] Reason for Visit * Auth/Cert (Routine) Specialty Diagnoses / Procedures Referred By Contac t Referred To Contact Diagnoses Symptomatic severe aortic stenosis with low ejection fraction NSTEMI, CHF Enrique Chua MD [facility] [place] [address] [facility] Referral ID Status Reason Start Date Expiration Date Visits Re quested Visits Authorized [id number] 1 1 Encounter Details Date Type Department Care Team (Late st Contact Info) Description 05/12/2023 2:50 PM EDT - 05/12/2023 3:50 PM EDT Surgery [place] [address] Antelmo Sharma MD [facility] [place] [address] CARDIAC CATHETERIZATION Social History Tobacco Use Types [...] Patient Age: 67 y.o. Birthdate: 1955 Language: Malay Race: White Ethnicity: Not nor Admit Date: 05/08/2023 Discharge Date: 05/22/2023 Attending Physician: Alirio Hudson MD Follow-up Recommendations for Providers: Please continue routine management of cardiovascular risk factors including blood pressure, lipids,glucose, etc. Please note any medication changes. Patient to follow up with PCP, Magdalena Acosta MD, or Primary Job Honer, Avis Mejia MD, in ~ 7-10 days. Patient to follow up with Systems Integration Engineer, Dr. Antelmo Sharma, in 2 weeks with an EKG, Echo, CBC, and CMP. Patient to follow up with Nephrology, their office to arrange. Vuhc-Bqnoyd-mp interval: After initial 30 day follow-up appointment , all TAVR patients will follow-up again in one year with an echo. 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 Left coronary protection with left main MINNA. Hospital Course: #Severe prosthetic s/p valve in valve TF TAVR #Low coronary heights s/p left main stent for coronary protection #Type 2 NSTEMI, present on arrival, resolved #Acute decompensated HFrEF #Cardiogenic shock #EVANS / Cardiorenal syndrome Purnima Thacker was admitted to [facility] on 05/08/2023 via the Cardiology Service [...] TAVR and she was brought to the corn lab technician the following morning where Drs. [...] if you have questions. Please call your Systems Integration Engineer's office if you have any discharge or drainage from your procedural sites. Your Systems Integration Engineer, Dr. Antelmo Sharma and/or the Eyeglass Inspector may be reached at . Antibiotic prophylaxis: You will need to take antibiotics prior to many invasive tests and treatments, such as dental cleaning, which should be done every 6 months. Your primary care physician or your dentist can prescribe this medication. Please refer to the card with the [employer] Guidelines for more information. You have been provided with a copy of this card. Please refer to the [employer] Guidelines for more information. Good [...] should resume a low fat, low cholesterol, [employer] Diet Driving: No restrictions. Shower/Bath: You may shower daily. No baths, soaking, or swimming for the first week. Wound care: Wash the sites daily with soap and rinse well, pat dry. Assess for any signs of infection such as increased redness, pain, warmth or drainage. Please call your mink slicer's office if you have any discharge or drainage from your procedural sites. If there is a lot of swelling, apply mamta wraps during the day and remove at bedtime. Elevate your legs when you are sitting. Home oxygen therapy: N/A Follow up appointments: Please schedule a follow-up appointment with your PCP, Magdalena Acosta MD, or Primary Job Honer in ~ 7-10 days. You have a follow-up appointment with your Systems Integration Engineer, Dr. Antelmo Sharma, in 2 weeks with an EKG, Echo, and labs prior to your appointment. You will need follow-up with Nephrology, their office will arrange. Hhob-Ntqpkn-fi interval: After initial 30 day follow-up appointment , all TAVR patients will follow-up again in one year with an echo. Cardiac Rehabilitation: Purnima Thacker was seen today regarding participation in the outpatient Phase 2 Cardiac Rehabilitation at [facility]. The patient agrees to a referral to this program. The referral will be sent at discharge and the patient should be contacted by the Program within 1- 2 weeks from discharge. Future Appointments and Orders Future Appointments and Orders Future Appointments Provider Department Dept Phone 07/29/2023 11:00 AM Magdalena Peralta MD Rheumatology at [facility] [place] Arrive at: Dba Manager Area [phone] 02/11/2024 2:00 PM Marek Bonilla MD Dermatology at [place] Arrive at: [facility] [address] [phone] Future Orders Complete By Expires Type and Screen Future Surgery, [facility] SAME DAY PROGRAM ONLY) [[id number] Custom] 05/11/2023 Process Instructions: This test is intended ONLY for patients with upcoming surgery for testing prior to the day of surgery obtained through the same day program (4V or SDP). For ALL OTHER PATIENTS, order a Type and Screen (OIX095) This order includes the physician order for an ABO Recheck if requested by the Blood Bank. Scheduling Instructions: Comments: Questions: Date of surgery: CBC (with Diff) [YCA465 Custom] 06/05/2023 12/05/2023 Process Instructions: INCLUDES: WBC, RBC, Hgb, Hct, Platelets, RBC Indices and Differential Scheduling Instructions: Comments: Questions: Comprehensive metabolic panel (non-fasting) [LAB17 Custom] 06/05/2023 08/20/2023 Process Instructions: INCLUDES: Calcium, T Protein, Albumin, AST, ALT, Alk Phos, T Bili, BUN, Creat, GFR, Glucose, Lytes. Scheduling Instructions: Comments: Questions: Echocardiogram Transthoracic [48419 CPT(R)] 06/05/2023 12/05/2023 Process Instructions: Scheduling Instructions: Questions: Where will study be performed?: [facility] [place] Clinics Does the patient have Congenital Heart Disease?: Does patient require sedation?: GA rationale: EKG 12 Lead [61482 CPT(R)] 06/05/2023 12/05/2023 Process Instructions: Scheduling Instructions: Questions: Which location will this be performed?: [place] Is a rhythm strip needed?: No [employer] [EQ161 Custom] As directed Process Instructions: Scheduling Instructions: Questions: Device Needed: WALKER (E0143) Patient Height (cm): 154.9 cm (5' 0.98) Patient Weight: 75.4 kg (166 lb 3.2 oz) Diagnosis: Unsteady gait when walking Referral to Cardiac Rehab [MWY621 Custom] As directed Process Instructions: If no progress note charted, please enter Clinical details in comments. Scheduling Instructions: Questions: My question or request is: s/p TAVR. Cardiac rehab at [facility]. Referral to Home Health [REF34 Custom] As directed Process Instructions: If no progress note charted, please enter Clinical details in comments. Scheduling Instructions: Comments: DOCUMENTATION FOR VNA SERVICES PATIENT'S LOCATION: Purnima Thacker [address] [place] [address] [phone] (home) Risk Developer's Name: Irineo and brother Raymond In discussion with the attending physician, it is certified that this patient is under his/her careand that MD, or an THIRD COOK, HAND SPINNER, or PA who is working directly with him/her, had a vrcu-ey-qlfz encounter that meets the physician nyzg-wz-vbwt encounter requirements with this patient on 05/22/2023. [...] for managing ADLs. HOME HEALTH CARE AGENCY: [facility]. [address] [facility] [address] PHONE: [phone] FAX: [phone] Start of care: Ideally 24-48 hours after [...] patient's PCP: Magdalena Acosta MD [address] [facility] [phone] All VNA agencies which cover the area of patient's residence have been reviewed, either verbally joao writing, and patient has chosen the home health care agency noted. Questions: Disciplines Requested: Physical Therapy Occupational Therapy Discharge References/Attachments None Arrangements for VNA/home care: As above. (delete if no VNA) Signed: EKATERINA NAVARRETE [facility] Section of Cardiac Surgery Date: 05/22/2023 CC: Magdalena Acosta MD NewryMario Alberto maxwell MD [address] [place] [address] [place] [address] documented in this encounter Discharge Instructions * Patient Instructions* Vinod Juárez PA - 05/22/2023 9:32 AM EDT TAVR Discharge Instructions: Call your doctor if: You have a fever of greater than 101 degrees, shaking chills, if you develop redness or drainage from your procedure sites, or if you have questions. Please call your Systems Integration Engineer's office if you have any discharge or drainage from your procedural sites. Your Systems Integration Engineer, Dr. Antelmo Sharma and/or the Eyeglass Inspector may be reached at . Antibiotic prophylaxis: You will need to take antibiotics prior to many invasive tests and treatments, such as dental cleaning, which should be done every 6 months. Your primary care physician or your dentist can prescribe this medication. Please refer to the card with the [employer] Guidelines for more information. You have been provided with a copy of this card. Please refer to the [employer] Guidelines for more information. Good [...] should resume a low fat, low cholesterol, [employer] Diet Driving: No restrictions. Shower/Bath: You may shower daily. No baths, soaking, or swimming for the first week. Wound care: Wash the sites daily with soap and rinse well, pat dry. Assess for any signs of infection such as increased redness, pain, warmth or drainage. Please call your mink slicer's office if you have any discharge or drainage from your procedural sites. If there is a lot of swelling, apply mamta wraps during the day and remove at bedtime. Elevate your legs when you are sitting. Home oxygen therapy: N/A Follow up appointments: Please schedule a follow-up appointment with your PCP, Magdalena Acosta MD, or Primary Job Honer in ~ 7-10 days. You have a follow-up appointment with your Systems Integration Engineer, Dr. Antelmo Sharma, in 2 weeks with an EKG, Echo, and labs prior to your appointment. You will need follow-up with Nephrology, their office will arrange. Soie-Noofwn-ox interval: After initial 30 day follow-up appointment , all TAVR patients will follow-up again in one year with an echo. Cardiac Rehabilitation: Purnima Gallegol was seen today regarding participation in the outpatient Phase 2 Cardiac Rehabilitation at [facility]. The patient agrees to a [...] Minutes, Physical Therapy: 28 m ins ( te) Haven Ba, PT Pager: [phone] Physical Therapy Inpatient Rehabilitation Department * Nico [...] 0600 and on the weekends please page [phone]. * Jory Paniagua - 05/20/2023 3:52 PM [...] vomiting Last Bowel Movement: 05/20/23 Jory Paniagua Aircraft Air Conditioning Mechanic * Tong Mike, OT - 05/20/2023 3:16 [...] steps to enter. DME: none used [employer] Baseline ADL/Mobility: Independent with ADLs and IADLs. [...] Discharge Disposition (OT): swing bed rehabilitation facility, [facility] facility(vs home with support for IADLs) Other [...] Discharge planning. Total Minutes, Occupational Therapy: 28 (2307-9939) OT Evaluation Code Rationale: Diagnosis & Pertinent Co-Morbidities affecting Plan of Care: see PMHx Occupational Profile & Client History: Brief Expanded Extensive x Assessment of Occupational Performance: 1-3 performance deficits 3-5 performance deficits x 5 + performance deficits Clinical Decision Making: Low Moderate High x Clinical decision making of moderate complexity using standardized patient assessment instrument and measurable assessment of functional outcome. Pager: [phone] TONG MIKE OT 05/20/2023 Occupational Therapy Rehabilitation [...] 0600 and on the weekends please page [phone]. * Rylie Rodriguez MD - 05/19/2023 3:59 [...] and plan. Cynthia Blackburn MD Nephrology Pager: [phone] * Diana Espino - 05/19/2023 1:49 PM EDT Air Bag Builder Encounter Note Patient Name: Purnima Thacker : [id number] MR#: [id number] Admit Date: 05/08/2023 9:14 AM Hospital Day [...] returning home alone. Anticipated Discharge Disposition (PT): [facility] facility, swing bed rehabilitation facility Consult Recommendations: [...] as stated. Total Minutes, Physical Therapy: 38 (8111-7794) Henrik Navarrete [employer] Pager: [phone] Physical Therapy Inpatient Rehabilitation Department * Nico [...] 0600 and on the weekends please page [phone]. * Laure Ricks PA - 05/19/2023 7:56 [...] Ricks PA-C Interventional Radiology IR Team Pager [phone] * Consuelo Espinoza RN - 05/18/2023 4:13 PM EDT ANGIO NURSING DATABASE Name: Prunima Thacker Date of : 1955 AGE: 67 y.o. Address: [address] [place] [phone] (home) Mobile: No relevant phone numbers on [...] I35.0 Mild coronary artery disease by [facility] 11/09/2022 I25.10 Heart failure with [...] and plan. Cynthia Blackburn MD Nephrology Pager: [phone] * Magdalena Puri, RETREADER - 05/18/2023 10:51 AM EDT Images from the original note were not [place] [address] [address] STRUCTURAL HEART DISEASE CONSULTATION NOTE PRIMARY CARE [...] stenosis. She is now status post TAVR Stilt-ut-Radao with a 23 mm Lai 3 THV 05/12/[address] Sharma. Preliminary findings: Successful right transfemoral TAVR Ftuot-as-Ahbnj with a 23 mm Lai 3 THV. [...] fraction Mild coronary artery disease by [facility] 11/09/2022 Heart failure with reduced ejection [...] tablet 90 mg 90 mg Oral BID Corrie SerranoANURAG kay 90 mg at 05/18/23 0825 sodium chloride 0.9 % (flush) (BD PosiFlush Normal Saline 0.9) flush 5 mL 5 mL Intravenous BID Corrie SerranoANURAG kay 5 mL at 05/18/23 0831 sodium chloride 0.9 % (flush) (BD PosiFlush Normal Saline 0.9) flush 5-20 mL 5- 20 mL Intravenous Q1Min PRN MaggieMara ernandez APRN aspirin chewable tablet 81 mg 81 mg Oral Daily MaggieMara APRN 81 mg at 05/18/23 0826 ondansetron (pf) (Zofran) (2 mg/mL) injection 4 mg 4 mg Intravenous Q8H PRN AmggieMara ernandez APRN4 mg at 05/12/23 0736 pantoprazole EC (Protonix) tablet 40 mg 40 mg Oral Daily MaggieMara ernandez APRN 40 mg at 05/18/23 0826 Or pantoprazole (Protonix) injection 40 mg 40 mg Intravenous Daily MaggieMara ernandez APRN 40 mg at 05/12/23 1004 senna-docusate (Pericolace) 8.6-50 mg per tablet 2 tablet 2 tablet Oral Daily AntelopeMara ernandez APRN 2 tablet at 05/16/232 bisacodyL (Dulcolax) suppository 10 mg 10 mg Rectal Daily PRN AntelopeMara ernandez APRN melatonin tablet 6 mg 6 [...] stenosis. She is now status post TAVR Mlpke-wh-Fwvao with a 23 mm Lai 3 THV [...] Magdalena Puri APRN Structural Heart Team Pager [phone] Team Office Please see addendum by Dr. Sharma for final plan and recommendations Associated attestation - Antelmo Sharma MD - 05/19/2023 10:52 PM EDT I have reviewed Magdalena Puri APRN's above history and I agree with the details as written. The assessment and plan were formulated in discussion with me and I agree with them as documented. Antelmo Sharma MD Pager [phone] * Nico Palacios PA - 05/18/2023 8:13 [...] 0600 and on the weekends please page [phone]. * Loli Hernandez, PT - 05/17/2023 5:27 [...] of a short rehab stay. Assessment: Purnima M Kirstie was seen today for physical therapy treatment [...] returning home alone. Anticipated Discharge Disposition (PT): [facility] facility, swing bed rehabilitation facility Consult Recommendations: [...] plan as stated. Time IN / OUT: 2260-7932 Total Minutes, Physical Therapy: 54 Billing Code: te-sx2, te-f, angely LOLI HERNANDEZ PT Pager: [phone] Physical Therapy Inpatient Rehabilitation Department * Cynthia [...] Well controlled. Cynthia Blackburn MD Nephrology Pager: [phone] * Mara Serrano, RETREADER - 05/17/2023 8:26 AM EDT Cardiac Surgery [...] 0600 and on the weekends please page [phone]. * Guerda Del Valle - 05/16/2023 10:44 AM EDT Nutrition Services Note - Low Nutrition Acuity Purnima Thacker is a 67 y.o. female Reason for intervention: hospital day 9 Nutrition Plan: Continue diet order Encourage good PO Lasix and Zofran noted Added special serve: open containers Monitor weight Patient scheduled for a hospital day 9 nutrition evaluation. Patrol Lady met with pt at bedside. Pt reports that her appetite and PO has much improved since admission. Denies nausea/vomiting or trouble chewing/swallowing. Patrol Lady provided snack list but pt not interested in adding snacks at this time. Her only concern was that she is worried that she will eat too much which will cause too much pressure in her stomach. Patrol Lady assured pt and suggested eating smaller but [...] Last Bowel Movement: 05/10/23 Guerda Del Valle Aircraft Air Conditioning Mechanic * Vinod Juárez PA - 05/16/2023 10:19 [...] 0600 and on the weekends please page [phone]. * Michael Jeffers MD - 05/16/2023 8:11 AM EDT Images from the original note were not included. Hypertension-Nephrology Inpatient Follow-up Purnima Thacker [id number] 1955 ID: 67 y.o. old female seen [...] IRONSAT 12 (L) 05/16/2023 SFOLATE >20.0 07/03/2022 [id number] 07/03/2022 Lab Results Component Value Date [...] Dr. Ayoub. Please contact me at phone: [phone] or pager: [phone] with any questions. Michael Jeffers MD Nephrology [...] -Nephrology consulted, labs and renal US ordered -[place] removed, ambulated around the unit -bilateral pleural [...] 0600 and on the weekends please page [phone]. * Hortencia Cody MD - 05/15/2023 2:07 [...] plt Recent Labs 05/15/23 0050 05/14/23 0110 05/13/23114 WBC 9.1 11.2* 8.6 HGB 7.2* 7.2* [...] Last Ca, Mg, Phos Recent Labs 05/15/23 00505/09/23 0400 05/08/23 1600 CALCIUM 8.9 < > [...] 74.5 kg (164 lb 3.9 oz) 05/11/23 034 77.4 kg (170 lb 9.6 oz) 05/10/23399 78.1 kg (172 lb 1.6 oz) 05/09/23 233 78.4 kg (172 lb 14.4 oz) 05/09/23399 [...] not included. Hypertension-Nephrology Inpatient Follow-up Purnima Thacker [id number] 1955 ID: 67 y.o. old female seen [...] HGB 7.8 (L) 05/13/2023 SFOLATE >20.0 07/03/2022 [id number] 07/03/2022 Lab Results Component Value Date [...] Dr. Ayoub. Please contact me at phone: [phone] or pager: [phone] with any questions. Michael Jeffers MD Nephrology [...] last 720 hours. T/L/D Art ETT CVL [place] ASSESSMENT, MANAGEMENT, and DECISION MAKIN y.o. female [...] and weak.?? Objective: Pt seen in the [facility] for initial evaluation. Pt in chair at [...] outlined inthis evaluation. HAVEN BA, PT Pager: [phone] Physical Therapy Inpatient Rehabilitation Department Time IN / OUT: 9652-2754 Total time: Total Minutes, Physical Therapy: 30 [...] Hemodynamics: CVP 8; PAP 42/14; CI 3.1 ips: Mil 0.125 05/13 0701 - 05/14 0700 [...] LUKAS, Rubens, ROSAURA Assessment/Plan: 67 y.o. female 2 [...] 0600 and on the weekends please page [phone]. * Antelmo Sharma MD - 05/14/2023 7:56 AM EDT Images from the original note were not [place] [address] [address] STRUCTURAL HEART DISEASE CONSULTATION NOTE PRIMARY CARE [...] stenosis. She is now status post TAVR Spocv-be-Cdsci with a 23 mm Lai 3 THV 05/12/[address] Sharma. Preliminary findings: Successful right transfemoral TAVR Ejnmk-nc-Zfdon with a 23 mm Lai 3 THV. [...] fraction Mild coronary artery disease by [facility] 11/09/2022 Heart failure with reduced ejection [...] stenosis. She is now status post TAVR Zwece-pn-Rdyyi with a 23 mm Lai 3 THV 05/12/[address] Sharma. Janet TAVR case notable for coronary LAD protective MINNA. Status post TAVR, the patient was transferred to [facility] for pressor and inotropic support. [...] Brody Kaplan APRN Structural Heart Team Pager [phone] Team Office Please see addendum by Dr. [...] exposure. Nephrology consultationtoday. Antelmo Sharma MD Pager [phone] * Antelmo Cardenas RN - 05/14/2023 5:18 AM EDT Pt AOx4, complaining of mild/moderate generalized pain (states her Meloxicam is effective at home) currently refusing prn oxycodone. NAEON, hemodynamically stable on Milrinone, Maps >65, ST in him540's down to NSR with frequent multifocal PVC's. [...] the original note were not [place] [address] [address] STRUCTURAL HEART DISEASE PROGRESS NOTE PRIMARY CARE [...] stenosis. She is now status post TAVR Skdel-kx-Ojpah with a 23 mm Lai 3 THV 05/12/[address] Sharma. Preliminary findings: Successful right transfemoral TAVR Tbhks-xj-Lbnwv with a 23 mm Lai 3 THV. [...] Interval Events: - Transferred to [facility] post- TAVR for pressor/inotropic support [...] fraction Mild coronary artery disease by [facility] 11/09/2022 Heart failure with reduced ejection [...] stenosis. She is now status post TAVR Ofsth-ug-Ogxgx with a 23 mm Lai 3 THV 05/12/[address] Sharma. Janet TAVR case notable for coronary LAD protective MINNA. Status post TAVR, the patient was transferred to [facility] for pressor and inotropic support. [...] Brody Kaplan APRN Structural Heart Team Pager [phone] Team Office Please see addendum by Dr. [...] DAPT moving forward. Antelmo Sharma MD Pager [phone] * Bonita Miguel PA - 05/13/2023 8:30 AM EDT Cardiac Surgery Progress Note Purnima Thacker is a 67 y.o. 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 PMH of s/p tissue AVR (2017), mixed connective tissue disease HTN, HLD, NICOLAS, diverticulosis, rosacea, essential tremor, and depression. 24h Events: From corn lab technician for above procedure Extubated at [...] soft b/l, no evidence of hematoma. Tubes/Lines/Drains: [place], RIJ, A-line, Art, PIV Assessment/Plan: 67 y.o. [...] 0600 and on the weekends please page [phone]. * Onelia Schwartz MD - 05/12/2023 1:44 [...] fraction Mild coronary artery disease by [facility] 11/09/2022 Heart failure with reduced ejection [...] FiO2 weaned to 40%. 1105: ABG 7.34/42/73/22 5312-1780: SBT performed and passed on these settings [...] PCP: Magdalena Acosta MD PCP phone number: [phone] Date of Admission: 05/08/2023 ( Hospital Day [...] 1447 PHART -- 7.34* 7.34* -- -- [id number] -- 30* 30* -- -- PO2ART -- 72* 81* -- -- NKU7KOL -- 16.0* 15.7* -- -- LACTATEVEN 2.4* 2.7* 2.7* 4.8* 2.9* VBG (Venous Blood Gas) Recent Labs 05/12/23 0700 05/12/2331705/12/2310505/11/23193905/11/23 144 LACTATEVEN 2.4* 2.7* 2.7* 4.8* 2.9* Mixed Venous Sat Recent Labs 05/12/23 0508 05/12/23 0321 05/12/23 0114 05/12/23 0030 [id number] 30.7 32.7 37.3 25.1 Objective: Vitals Last [...] redness;no swelling;no warmth 05/11/231999 Labs: Recent Labs 05/12/2310405/11/23 0442 05/10/23 0228 05/09/23 0400 05/08/23 1138 WBC 9.0 7.0 5.2 6.4 4.1 HGB 9.8* 11.1* 10.2* 10.2* 10.2* HCT 28.7* 32.7* 30.2* 30.3* 29.6* PLATELET 186 165 151 151 136* MCV 95.3* 95.1* 97.1* 96.2* 97.0* Recent Labs 05/12/23 0605/12/23 0105 05/11/23 0442 05/10/23 0228 05/09/23 0400 [...] who have questions please contact the health laboratory animal caretaker that requested your imaging first. Electronically signed by: ALIX RUVALCABA MD, [facility] ([phone]), at 05/10/2023 1:[address] Cardiac for [...] who have questions please contact the health laboratory animal caretaker that requested your imaging first. Electronically signed by: Cullen Narayanan MD, [facility] ([phone]), at 05/11/2023 4:[address] Angiogram Abdomen [...] who have questions please contact the health laboratory animal caretaker that requested your imaging first. Electronically signed by: Eileen Gomes MD, [facility] ([phone]), at 05/11/2023 2:42 PM XR Chest One [...] who have questions please contact the health laboratory animal caretaker that requested your imaging first. Electronically signed by: Will Rowe MD, [facility] ([phone]), at 05/11/2023 11:57 PM XR Chest One [...] who have questions please contact the health laboratory animal caretaker that requested your imaging first. Electronically signed by: Will Rowe MD, [facility] ([phone]), at 05/12/2023 3:16 AM Assessment & Plan: [...] and inotrope. 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 * Noreen Deutsch RN - 05/12/2023 [...] fraction Mild coronary artery disease by [facility] 11/09/2022 Heart failure with reduced ejection [...] 05/11/2023 4:11 PM EDT Reported off to ASSET PROTECTION GREETER and pt transferred over in the bed for higher level of care. * Antelmo Sharma MD - 05/11/2023 9:45 AM EDT Images from the original note were not included[place] [address] STRUCTURAL HEART DISEASE CONSULTATION NOTE PRIMARY CARE [...] who had been referred for possible TAVR ktcug-ff-fiwel evaluation. Her primary symptoms are of dyspnea [...] Ms. Thacker is originally from [facility]. 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 She states [...] fraction Mild coronary artery disease by [facility] 11/09/2022 Heart failure with reduced ejection [...] Lactate, whole blood, send to lab ([facility]) Result Value Ref Range Lactate WB 3.1 (H) 0.5 - 2.2 mmol/L Heparin (unfractionated) Level Result Value Ref Range Heparin UFH Level 0.46 IU/mL Lactate, whole blood, send to lab ([facility]) Result Value Ref Range Lactate WB 1.8 [...] leads Confirmed by MD Harshil, Enrique Bell ([id number]) on 05/10/2023 8:11:46 AM Cardiac Cath 11/09/2022 [...] alert Dr. Hudson of her inpatient status, arcadia primary cardiac surgeon. Based on recent clinic [...] HFrEF, she was transferred to [facility] this afternoon for further management. TAVR CT imaging support for adequate ileofemoral access. Given her acute deterioration today, will planfor RTF TAVR on 05/12/2023. Brody Kaplan APRN Structural Heart Disease Pager [phone] Please see addendum by Dr. Sharma for [...] signed and dated. Antelmo Sharma MD Pager [phone] * Harini Lance MD - 05/11/2023 6:06 AM EDT Images from the original note were not included. Cardiology Progress Note Patient info: Name: Purnima Thacker : 1955 PCP: Magdalena Acosta MD PCP phone number: [phone] Date of Admission: 05/08/2023 ( Hospital Day [...] who have questions please contact the health laboratory animal caretaker that requested your imaging first. Electronically signed by: ALIX RUVALCABA MD, [facility] ([phone]), at 05/10/2023 1:25 PM TTE: 05/08 -Left [...] 09/2016) Mild coronary artery disease by [facility] 11/09/2022 Hyperlipidemia, unspecified NICOLAS (obstructive sleep apnea) Resolved Hospital Problems No resolved problems to display. I have interviewed and examined the patient, reviewed the available data, and have discussed my findings, assessment and plan with the patient and the team on rounds today. I agree with Dr. Lance's note as below which reflects our discussion. * Hairni Lance MD - 05/10/2023 6:01 AM EDT Images from the original note were not included. Cardiology Progress Note Patient info: Name: Purnima Thacker : 1955 PCP: Magdalena Acosta MD PCP phone number: [phone] Date of Admission: 05/08/2023 ( Hospital Day [...] 09/2016) Mild coronary artery disease by [facility] 11/09/2022 Hyperlipidemia, unspecified NICOLAS (obstructive sleep [...] PCP: Magdalena Acosta MD PCP phone number: [phone] Date of Admission: 05/08/2023 ( Hospital Day [...] Gas) No results found for: PHART, PO2ART, FUO0CYL, LQP5BEB Microbiology: Microbiology Results (Last 30 days) No [...] Diet: Daily Healthy Menu Choices/Cardiac diet ([facility]iet) Lines: Peripheral IV [...] 09/2016) Mild coronary artery disease by [facility] 11/09/2022 Hyperlipidemia, unspecified NICOLAS (obstructive sleep [...] Interventional Radiology Focused Pre-procedure H&P: PCP: Magdalena Aocsta MD Referring Provider: Mario Alberto Chin Planned [...] I35.0 Mild coronary artery disease by [facility] 11/09/2022 I25.10 Heart failure with reduced ejection fraction due to heart valve disease I50.20, I38 Cardiogenic shock R57.0 S/P TAVR (transcatheter aortic valve replacement) Z95.2 Past Medical History: Diagnosis Date Anemia Past Surgical History: Procedure Laterality Date PRG CATH PLOH LEFT HEART CATH & ARTS W/INJ & ANGIO IMG S&I N/A 11/09/2022 CORONARY ANGIOGRAPHY; W [facility],POSSIBLE PCI (WRVU 5.6) performed by Mario [...] Magdalena Acosta MD Referring Provider: Mario Alberto hCin Planned procedure: Right chest tube placement Procedure [...] I35.0 Mild coronary artery disease by [facility] 11/09/2022 I25.10 Heart failure with reduced ejection fraction due to heart valve disease I50.20, I38 Cardiogenic shock R57.0 S/P TAVR (transcatheter aortic valve replacement) Z95.2 Past Medical History: Diagnosis Date Anemia Past Surgical History: Procedure Laterality Date PRG CATH PLOH LEFT HEART CATH & ARTS W/INJ & ANGIO IMG S&I N/A 11/09/2022 CORONARY ANGIOGRAPHY; W [facility],POSSIBLE PCI (WRVU 5.6) performed by Mario [...] days, which prompted her to present to [facility]. She also endorses some intermittent retrosternal chest pain with exertion.She endorses some dizziness with exertion, but has not gotten faint or passed out. At [facility] she was noted to be afebrile, blood pressure 105/64, HR 120s, satting 95% on 2L NC. Labs from [facility] are below, of note she had [...] 89/59, which prompted the transfer to us. [facility] labs: CBC - Hgb 10.5 CMP - Cr 1.1 BNP 06847 HsTrop 1358 Lactate 1.6 D-dimer 1183 Interval History Patient was admitted to [facility] due to concern on low [...] Klaudia Reid MD Internal Medicine PGY-1 Pager [phone], M1-S1 Service Associated attestation - Juan Luis Gonzalez MD - 05/08/2023 10:00 PM EDT Cardiology Attending Addendum Active Hospital Problems Diagnosis Symptomatic severe aortic stenosis with low ejection fraction Heart failure with reduced ejection fraction due to heart valve disease Mild coronary artery disease by [facility] 11/09/2022 Hyperlipidemia, unspecified History of aortic [...] PCP: Magdalena Acosta MD PCP phone number: [phone] Date of Admission: 05/08/2023 ( Hospital Day 0 days ) Attending:Enrique Chua MD ID: Purnima Thacker is a 67 y.o. female w/ PMH of s/p bioprosthetic AVR in 2016 with recent concern for severe restenosis, HTN, HLD, mixed connective tissue disease, who presents in transfer from [facility] with worsening BONILLA and weight gain [...] four days, which promptedher to present to [facility]. She also endorses some intermittent retrosternal chest pain with exertion. She endorses some dizziness with exertion, but has not gotten faint or passed out. At [facility] she was noted to be afebrile, blood pressure 105/64, HR 120s, satting 95% on 2L NC. Labs from [facility] are below, of note she had [...] 89/59, which prompted the transfer to us. [facility] labs: CBC - Hgb 10.5 CMP - Cr 1.1 BNP 32100 HsTrop 1358 Lactate 1.6 D-dimer 1183 Vasoactive [...] tissue disease, who [facility] B[facility] and weight gain concerning [...] Diet: Daily Healthy Menu Choices/Cardiac diet ([facility]iet) DVT Prophylaxis: heparin [...] to the planned procedure. Hand Hygiene: The warehouse production worker did perform hand hygiene prior to arterial [...] Successful arterial line placement. Crispin Timmons MD Eyeglass Inspector Associated attestation - Onelia Schwartz MD - [...] (flow was non-pulsatile) and appearance of blood. [place] catheter was placed and locked at 55 [...] information for follow-up [facility], [place] [address] [place] [address] Cardiac Rehab, [address] [place] [address] [facility], [place] [address] [place] [address] Transportation: family or friend will provide *Brother [...] Type: *No Product type* / Secondary Insurance: [employer] [place] Prescription Coverage: Yes This plan was formulated with input from patient, family (please identify family/friend involved ifapplicable) and team. All are in agreement with plan. Aliza Martino MSN-Ed, RN ACM natural gas plant supervisor Office of Care Management Pager #[phone] * Plan of Care - Favian Mckeon [...] Lana Chaudhary RN - 05/21/2023 4:46 PM [facility] [place] [facility] referral OFFICE OF CARE MANAGEMENT [...] Type: *No Product type* / Secondary Insurance: [employer] [facility] [place] Last Physical Therapy Recommendation: (Home with assist from Brother; Friend arriving Tues) with walker, front wheeled Last Occupational Therapy Recommendation: swing bed rehabilitation facility, [facility] facility (vs home with support for IADLs) with walker, front wheeled, shower chair Plan for discharge is: Home w/ Services Outpatient Agency/Support Group Needs: Homecare agency Home Health Services: Physical Therapy, Occupational Therapy Agency Referrals: I have met with the patient to: discuss discharge planning needs. describing our affiliations within the [facility] and educate about their right to choose where referrals are sent. provide a list of Home Health Agencies / Durable Medical Equipment vendors which serve their preferred geographic area. They have requested referrals to: [facility] [address] [place] [address] [facility] [place], [place] Note routed to a Storage Facility Housekeeper who will communicate referrals to facilities and provide any required information. Transportation: family or friend will provide *Brother Raymond on Tuesday 05/22 at 1000 Barriers to discharge: Does not have home 22/02 assist available until tomorrow Tuesday 05/22 Plan going forward: Discharge home into the 22/02 home care of brother Raymond with [facility] and [place] [facility] PT/OT services on Tuesday 05/22 [...] Appropriate) * Plan of Care - Naldo Herndaez RN - 05/19/2023 4:08 PM EDT Shift [...] Attending: All Staff: Staff Role Juanita Almaguer Scaleman Laure Ricks PA Physician Job Specification Writer Magdalena Rodriguez RN Radiology Nurse Consuelo Espinoza miner helper Nurse Post-operative diagnosis/Indication: Right pleural effusion Name [...] 05/18 @ 0813,Cardiac Surgery Progress Note Purnima Thcaker is a [...] [facility] [place] Last Physical Therapy Recommendation: m[facility] facility, swing bed rehabilitation facility with to [...] discuss discharge planning needs. provide the [facility], Office of Care Management letter from the Law Firm Partner pertaining to rehab referrals. provide a letter describing our affiliations within the [facility] and educate about their right to choose where referrals are sent. provide the CMS Star Quality Rating handout. review the different levels of rehab including SNF, swing, and acute. provide a list of facilities within their preferred geographic area. request that they provide at least three choices for referral. They have requested referrals to: [facility] [address] [place] [address] [facility] ([facility] [facility]) [address] [place] [address] (Accepts pts only after exhausting all other local SNF options) [facility] (Swing) ([facility]) [address] [place] [address] PHONE: [phone] FAX: [phone] [facility] (Swing) [facility]) [address] [place] [address] PHONE: [phone] FAX: [phone] Note routed to a Storage Facility Housekeeper who will communicate referrals to facilities and [...] RN - 05/17/2023 10:25 AM EDT [facility] CARDIAC REHABILITATION Purnima Thacker was seen today regarding participation in the outpatient Phase 2 Cardiac Rehabilitation at [facility]. The patient agrees to a [...] from the original note were not included. [facility] NEPHROLOGY/HYPERTENSION CONSULT NOTE PATIENT: Purnima Thacker [...] in her course. She ultimately underwent a dhhni-po-iajyh procedure on and tolerated it well (see operative details). [facility] and [facility] on some pressors [...] 112* 130* -- 186 Chemistry: Recent Labs 05/14/2310923 0115 05/12/23 1405 05/12/23 0600 NA 132* [...] 1423 05/12/23 1105 PHART 7.39 7.37 7.34* [id number] 33* 36 42 PO2ART 101 102 73* TBR3SQL 19.5* 20.4 22.1 LACTATEVEN 1.5 1.8 2.8* [id number] 40 40 40 PFRATIOART2 252 255 182 VBG (Venous Blood Gas) Recent Labs 05/12/23 1557 05/12/23 1423 05/12/23 1105 LACTATEVEN 1.5 1.8 2.8* Mixed Venous Sat Recent Labs 05/12/23 1425 05/12/23 0508 05/12/23 0321 Q3FFOA1 59.9 30.7 32.7 LFT's: Recent Labs 05/14/23 0110 05/13/23 0115 05/12/23 0600 BILITOT 0.4 0.5 0.9 BILIDIR -- 0.3 -- ALBUMIN 3.6 3.0* 3.5 ALKPHOS 86 85 100 ALT 437* 903* 1,174* AST 319* 792* 1,435* No results found for: UPROTCREAT No results found for: TPROTEINPEP, ALBELECT No results found for: MICROALBUR, [id number] No results found for: HA1C Lab Results Component Value Date CALCIUM 8.5 05/14/2023 PHOS 4.7 (H) 05/08/2023 No results found for: 25OHVITD MICROBIOLOGY: ProcedureComponentValueUnitsDate/TimeUrine culture [[id number]]Collected: 05/11/23 192Lab Status: Final resultSpecimen: Clean Catch [...] consulted for assessment if this patient needs NURSE FIRST ASSIST. Atthis time, we can likely hold off on NURSE FIRST ASSIST. Her volume status appears sufficient and her metabolic kanwal angements with mild acidosis is not too profound. Patient does not have significant uremic symptoms. We can hold off for today, but the patient is a high risk candidate for needing NURSE FIRST ASSIST in future daysespecially if her Cr curve trends the direction it is for the next several days. S/p Fqduc-zg-Mugmr TF TAVR: Management per cardiology. On milrinone gtt. PLAN: - Please obtain following diagnostics: renal US, urinalysis, urine prot/Cr ratio, urine albumin/Cr ratio, CK, uric acid, serum osmol, daily VBGs - No acute indications for NURSE FIRST ASSIST/dialysis. We will keep close eye on Cr trend, volume status, and metabolics to ensure patient still does not need NURSE FIRST ASSIST as she ensues intrinsic renal recovery - [...] M.H.Katherine., M.A. PGY-V Nephrology-Hypertension Fellow Page # [phone] [facility] [address] 2nd floor, Dba Manager [address] [place] [address] * Care Management - Mario Alberto Olmos [...] Continuous Infusions: [MAR Hold] vasopressin 0.08 Units/min (05/12/23599) [MAR Hold] milrinone 0.375 mcg/kg/min (10/11/23 0600) [MAR [...] Type: *No Product type* / Secondary Insurance: [facility] Plan for discharge is: Home [...] TAVR at 730. Returned to [facility] at 0945. Was intubated in the corn lab technician due to agitation. Maintained bedrest [...] Operative Note Patient Name: Purnima Thacker : [id number] MR#: [id number] Case Date: 05/12/2023 Surgeon: Surgeon(s) and Role: [...] procedure Note: Patient Name: Purnima Thacker : [id number] MR#: [id number] Case Date: 05/12/2023 Operators Surgeon: Surgeon(s) and [...] main with 4.0 x 30 mm Resolute Tyrrell Drug Eluting Stent Perclose x1 + Angio-seal 8 Fr x1, RFA Manual pressure, LFA Manual pressure, LFV Endotracheal intubation (performed by cardiac anesthesia) Preliminary findings: Successful right transfemoral TAVR Xzftd-gz-Ccrtu with a 23 mm Lai 3 THV. [...] MD, M.Sc. Structural Heart Disease Fellow Pager :[phone] Antelmo Sharma MD Pager [phone] * Op Note - Alirio Hudson MD - 05/12/2023 7:37 AM EDT Preop Diagnosis: Severe aortic stenosis, symptomatic. Postop Diagnosis: Same. Procedure: Transfemoral TAVR procedure with 23mm valve. Surgeon: Alirio Hudson M.D. Job Honer: Danny CULP Procedure: The patient was taken to the corn lab technician. 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 [address] [address] STRUCTURAL HEART DISEASE CONSULTATION NOTE PRIMARY CARE [...] who had been referred for possible TAVR lpszw-wb-qacyu evaluation. Her primary symptoms are of dyspnea [...] Ms. Thacker is originally from [facility]. 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 PROBLEM LIST: Patient Active Problem List Diagnosis Symptomatic severe aortic stenosis with low ejection fraction Mild coronary artery disease by [facility] 11/09/2022 Heart failure with reduced ejection [...] Lactate, whole blood, send to lab ([facility]) Result Value Ref Range Lactate WB 1.8 [...] leads Confirmed by MD Harshil, Enrique Bell ([id number]) on 05/10/2023 8:11:46 AM Assessment and Plan: [...] Antelmo Sharma MD Structural Heart Disease Pager [phone] * Plan of Care - Sarahi Nice RN - 05/10/2023 3:55 AM EDTSumavis: RN Note and Care Plan Sarahi Niec RN assumed care of pt at time of their arrival to room 362 from [facility]. Pt voices shortness of breath [...] VTE (Venous Thromboembolism) Risk Flowsheets (Taken 05/09/2023 8676) VTE Prevention/Management: anticoagulant therapy Intervention: Prevent Infection [...] listening utilized Taken 05/08/20231999 by Alivia Kauffman partition assembly machine operator/Support System Care: self-care encouraged support provided Problem: [...] Transfer from another hospital Location: admitted from [facility] Reason for Hospitalization: Critical aortic stenosis, causing symptoms Past medical History: Past Medical History: Diagnosis Date Anemia Hospitalizations Within the Past 30 Days: no previous admission in last 30 days Current Decision-Making Capacity: Self If AD's have not been completed the following surrogate would be surrogate decision maker per [place] surrogate decision making law. (Only good for 180 days) Any patient receiving care in [place] must abide by [place] law. The hierarchy for surrogate decision making [...] The agent with financial power of attorney recruiter or a conservator appointed in accordance with [...] DME: none Home Address confirmed as: [address] [place] [address] Social & Family Supports: All names listed [...] Type: *No Product type* / Secondary Insurance: [facility] ONLY if patient has Medicare A&B - Does this patient have secondary insurance?: Yes ; Prescription Coverage: Yes Preferred Pharmacy: updated to [facility] in [facility] [place] Status: Patient is a : No Primary Care Provider confirmed: Magdalena Acosta MD [phone] Patient/Caregiver Goals of Treatment: Potential Needs for [...] transition of care planning. Alie Bradshaw RN, Pager-[phone] * Plan of Care - Emily Lucero RN - 05/08/2023 2:54 PM EDT OUTCOME EVALUATION NOTE: OUTCOME SUMMARY: Pt arrived from [facility]. A&O, no c/o pain or SOB. [...] PM EDT Hospital Encounter [facility] [place] [id number] Markel Borjas MD [facility] [address] HEMATOLOGY [place] [address] 05/29/2024 2:00 PM EDT - 05/29/2024 2:43 PM EDT Surgery [facility] [place] [address] Markel Borjas MD [facility] [address] HEMATOLOG[place] [address] (OSC MSURG) BONE MARROW BIOPSY AND ASPIRATION; DIAGNOSTIC (WRVU 1.44) 06/23/2024 2:00 PM EST Office Visit Hematology [place] [address] Markel Borjas MD [facility] [address] HEMATOLOGY [place] [address] 03/01/2025 4:15 PM EDT Office Visit Dermatology at [place] [address] [place] [address] Marek Bonilla MD [address] [place] [address] Scheduled Procedures Name Priority Associated Diagnoses Date/Ti [...] 1:15 AM EDT DIFFERENTIAL, AUTOMATED Routine 05/13/20 23 1:15 AM EDT CBC (WITH DIFF) Routine [...] Heart Cath W/Inj L Ventriculography, Img S&I (17811) 05/12/2023 7:37 AM EDT Aortic valve stenosis, [...] DOPP COLOR DOPP (07/08/2023 12:15 PM EST) [facility] [employer] 20 HEARTLAB SYSTEM Anatomical Region Laterality Modality Cardiac Other 07/08/2023 10:3 1 AM EST Narrative 07/08/2023 12:26 PM EST [address] [place] [address] ? Echocardiogram Report Name: PURNIMA THACKER ?Study Date: 07/08/2023 10:31 AMBP: 118/60 mmHg ? Patient Location: : 1955 ? Height: 155 cm ? Account: [id number] Age: 67 yrs ? Weight: 74 kg Gender: Female ?BSA: 1.7 m2 Ordering Physician: ALIRIO HUDSON Referring Physician: VINOD JUÁREZ Performed By: Felicia Norris RDCS Reason For Study: S/P TAVR Exam Location: [facility]. Interpretation Summary Left ventricular systolic [...] no significant change (post-procedure). Procedure Limited - 47397. Doppler - 99354. Color Doppler - 48347. Satisfactory quality. This study is limited because [...] Note Lee Kincaid MD - 07/08/2023 [address] [place] [id number] Echocardiogram Report Name: PURNIMA THACKER Study Date: 0:31 AMBP: 118/60 mmHg Patient Location: : 1955 Height: 155 cm Account: [id number] Age: 67 yrs Weight: 74 kg Gender: Female BSA: 1.7 m2 Ordering Physician: ALIRIO HUDSON Referring Physician: VINOD JUÁREZ Performed By: Felicia Norris RODOLFO Reason For Study: S/P TAVR Exam Location: [facility]. Interpretation Summary Left ventricular systolic [...] is nosignificant change (post-procedure). Procedure Limited - 01349. Doppler - 73055. Color Doppler - 02384. Satisfactoryquality. This study is limited because of [...] EST) Glucose 93 65 - 199 mg/dL [facility] Comment:Diabetes: >=200 mg/d L plus symptoms Blood Urea Nitrogen 19(H) 8 - 18 mg/dL [facility] [facility] Creatinine 0.81 0.70 - 1.20 mg/dL [facility] Sodium 142 135 - 145 mmol/L [facility] Potassium 3.8 3.5 - 5.0 mmol/L [facility] Comment: Please note: ??Patients with WBC >100,000 may have falsely elevated Potassium levels. ??For accurate Potassium quantification in these patients send serum separator tube (gold top) for subsequent determinations. ??Contact the Clinical Chemistry Laboratory if there are any questions. Chloride 104 98 - 107 mmol/L [facility] Carbon Dioxide 26 22 - 31 mmol/L [facility] Anion Gap 12 5 - 15 mmol/L [facility] Calcium 10.2 8.5 - 10.5 mg/dL [facility] Protein, Total 7.4 6.1 - 8.0 g/dL [facility] Albumin 4.1 3.2 - 5.2 g/dL [facility] Aspartate Aminotransferase 24 0 - 30 unit/L [facility] Alanine Aminotransferase 12 0 - 30 unit/L [facility] Alkaline Phosphatase 93 35 - 105 unit/L [facility] Bilirubin, Total 0.3 0.2 - 1.3 mg/dL [facility] Est Glomerular Filtration Rate 80 >=60 mL/min/1. 73 m?? [facility] Comment: This patient's estimated [...] Lab Alirio Hudson MD CHEMISTRY ORDERABLE S [facility] [place] [address] * (ABNORMAL) Basic Metabolic Panel (non-fasting) (05/22/2023 3:57 AM EDT) Glucose 88 65 - 199 mg/dL [facility] Comment:Diabetes: >=200 mg/d L plus symptoms Blood Urea Nitrogen 21(H) 8 - 18 mg/dL [facility] Creatinine 0.69(L) 0.70 - 1.20 mg/dL [facility] Sodium 136 135 - 145 mmol/L [facility] Potassium 3.6 3.5 - 5.0 mmol/L [facility] Comment: Please note: ??Patients with WBC >100,000 may have falsely elevated Potassium levels. ??For accurate Potassium quantification in these patients send serum separator tube (gold top) for subsequent determinations. ??Contact the Clinical Chemistry Laboratory if there are any questions. Chloride 102 98 - 107 mmol/L [facility] Carbon Dioxide 23 22 - 31 mmol/L [facility] Anion Gap 11 5 - 15 mmol/L [facility] Calcium 8.6 8.5 - 10.5 mg/dL [facility] Est Glomerular Filtration Rate 95 >=60 mL/min/1. 73 m?? [facility] Comment: This patient's estimated [...] Agency Comment Spec In Lab Mara Maggie RETREADER CHEMISTRY ORDERABL ES Performing Organization Address City/[facility] Co de Phone Number [facility] [place] [address] * (ABNORMAL) Basic Metabolic Panel (non-fasting) (05/21/2023 5:06 AM EDT) Glucose 87 65 - 199 mg/dL [facility] Comment:Diabetes: >=200 mg/d L plus symptoms Blood Urea Nitrogen 25(H) 8 - 18 mg/dL [facility] Creatinine 0.84 0.70 - 1.20 mg/dL [facility] Sodium 136 135 - 145 mmol/L [facility] Potassium 3.6 3.5 - 5.0 mmol/L [facility] Comment: Please note: ??Patients with WBC >100,000 may have falsely elevated Potassium levels. ??For accurate Potassium quantification in these patients send serum separator tube (gold top) for subsequent determinations. ??Contact the Clinical Chemistry Laboratory if there are any questions. Chloride 102 98 - 107 mmol/L [facility] Carbon Dioxide 26 22 - 31 mmol/L [facility] Anion Gap 8 5 - 15 mmol/L [facility] Calcium 8.9 8.5 - 10.5 mg/dL [facility] Est Glomerular Filtration Rate 76 >=60 mL/min/1. 73 m?? [facility] Comment: This patient's estimated [...] Agency Comment Spec In Lab Mara Serrano RETREADER CHEMISTRY ORDERABL ES Performing Organization Address [facility]/ZIP Co de Phone Number [facility] [place] [address] * Lavender Tube HOLD (05/20/2023 2:52 AM EDT) Lavender Hold Sample in lab. [facility] Blood Venous Draw / Unknown 05/20/2023 2:52 AM EDT 05/20/2023 3:04 AM EDT Mara Serrano RETREADER HEMATOLOGY ORDERAB LES [facility] [place] [address] * (ABNORMAL) Basic Metabolic Panel (non-fasting) (05/20/2023 2:52 AM EDT) Glucose 152 65 - 199 mg/dL [facility] Comment:Diabetes: >=200 mg/d L plus symptoms Blood Urea Nitrogen 33(H) 8 - 18 mg/dL [facility] Creatinine 0.82 0.70 - 1.20 mg/dL [facility] Sodium 137 135 - 145 mmol/L [facility] Potassium 3.7 3.5 - 5.0 mmol/L [facility] Comment: Please note: ??Patients with WBC >100,000 may have falsely elevated Potassium levels. ??For accurate Potassium quantification in these patients send serum separator tube (gold top) for subsequent determinations. ??Contact the Clinical Chemistry Laboratory if there are any questions. Chloride 99 98 - 107 mmol/L [facility] Carbon Dioxide 22 22 - 31 mmol/L [facility] Anion Gap 16(H) 5 - 15 mmol/L [facility] Calcium 9.0 8.5 - 10.5 mg/dL [facility] Est Glomerular Filtration Rate 78 >=60 mL/min/1. 73 m?? [facility] Comment: This patient's estimated [...] Agency Comment Spec In Lab Mara Thomasfield RETREADER CHEMISTRY ORDERABL ES Performing Organization Address [facility] Co de Phone Number [facility] [place] [address] * (ABNORMAL) Potassium (05/20/2023 2:52 AM EDT) [...] Agency Comment Spec In Lab Mara Thomasfield RETREADER CHEMISTRY ORDERABL ES Performing Organization Address [facility] Co de Phone Number [facility] [place] [address] * XR Chest PA & Lateral (Generic) [...] who have questions please contact the health laboratory animal caretaker that requested your imaging first. ? Electronically signed by: Chyna Johnson MD, [facility] ??([phone]), at 05/19/2023 2:19 PM Narrative 05/19/2023 2:19 [...] patients who have questions please contactthe health laboratory animal caretaker that requested your imaging first. Electronically signed by: Chyna Johnson MD, [facility]([phone]), at 05/19/2023 2:19 PM Alirio Hudson MD IMG DX ORDERABLES * (ABNORMAL) Basic Metabolic Panel (non-fasting) (05/19/2023 5:49 AM EDT) Glucose 93 65 - 199 mg/dL [facility] Comment:Diabetes: >=200 mg/d L plus symptoms Blood Urea Nitrogen 45(H) 8 - 18 mg/dL [facility] Creatinine 1.02 0.70 - 1.20 mg/dL [facility] Sodium 138 135 - 145 mmol/L [facility] Potassium 3.9 3.5 - 5.0 mmol/L [facility] Comment: Please note: ??Patients with WBC >100,000 may have falsely elevated Potassium levels. ??For accurate Potassium quantification in these patients send serum separator tube (gold top) for subsequent determinations. ??Contact the Clinical Chemistry Laboratory if there are any questions. Chloride 102 98 - 107 mmol/L [facility] Carbon Dioxide 26 22 - 31 mmol/L [facility] Anion Gap 10 5 - 15 mmol/L [facility] Calcium 9.7 8.5 - 10.5 mg/dL [facility] Est Glomerular Filtration Rate 60 >=60 mL/min/1. 73 m?? [facility] Comment: This patient's estimated [...] Lab Mara Serrano APRN CHEMISTRY ORDERABL ES [facility] [place] [address] * IR Chest Tube Placement Right (05/18/2023 [...] EDT) Glucose 95 65 - 199 mg/dL [facility] Comment:Diabetes: >=200 mg/d L plus symptoms Blood Urea Nitrogen 71(H) 8 - 18 mg/dL [facility] Comment:result rechecked-JSJ Creatinine 1.64(H) 0.70 - 1.20 mg/dL [facility] Comment:result rechecked-JSJ Sodium 137 135 - 145 mmol/L [facility] Potassium 3.7 3.5 - 5.0 mmol/L [facility] Comment: Please note: ??Patients with WBC >100,000 may have falsely elevated Potassium levels. ??For accurate Potassium quantification in these patients send serum separator tube (gold top) for subsequent determinations. ??Contact the Clinical Chemistry Laboratory if there are any questions. Chloride 100 98 - 107 mmol/L [facility] Carbon Dioxide 24 22 - 31 mmol/L [facility] Anion Gap 13 5 - 15 mmol/L [facility] Calcium 9.7 8.5 - 10.5 mg/dL [facility] Est Glomerular Filtration Rate 34(L) >=60 mL/min/1. 73 m?? [facility] Comment: This patient's estimated [...] Agency Comment Spec In Lab Mara Maggie RETREADER CHEMISTRY ORDERABL ES [facility] [place] [address] * XR Chest PA & Lateral (Generic) [...] who have questions please contact the health laboratory animal caretaker that requested your imaging first. ? Electronically signed by: Ghassan Reyes MD, [facility] ??([phone]), at 05/17/2023 11:46 AM Narrative 05/17/2023 11:46 [...] patients who have questions please contactthe health laboratory animal caretaker that requested your imaging first. Electronically signed by: Ghassan Reyes MD, [facility]([phone]), at 05/17/2023 11:46 AM Alirio Hudson MD IMG DX ORDERABLES * (ABNORMAL) Comprehensive metabolic panel (non-fasting) (05/17/2023 4:35 AM EDT) Pathologist [facility] Glucose 89 65 - 199 mg/dL [facility] Comment:Diabetes: >=200 mg/d L plus symptoms Blood Urea Nitrogen 97(H) 8 - 18 mg/dL [facility] Creatinine 2.97(H) 0.70 - 1.20 mg/dL [facility] Comment:result rechecked-JSJ Sodium 135 135 - 145 mmol/L [facility] Potassium 4.1 3.5 - 5.0 mmol/L [facility] Comment: Please note: ??Patients with WBC >100,000 may have falsely elevated Potassium levels. ??For accurate Potassium quantification in these patients send serum separator tube (gold top) for subsequent determinations. ??Contact the Clinical Chemistry Laboratory if there are any questions. Chloride 97(L) 98 - 107 mmol/L [facility] Carbon Dioxide 22 22 - 31 mmol/L [facility] Anion Gap 16(H) 5 - 15 mmol/L [facility] Calcium 9.6 8.5 - 10.5 mg/dL [facility] Protein, Total 6.5 6.1 - 8.0 g/dL [facility] Albumin 3.7 3.2 - 5.2 g/dL [facility] Aspartate Aminotransferase 58(H) 0 - 30 unit/L [facility] Alanine Aminotransferase 66(H) 0 - 30 unit/L [facility] Alkaline Phosphatase 86 35 - 105 unit/L [facility] Bilirubin, Total 0.6 0.2 - 1.3 mg/dL [facility] Est Glomerular Filtration Rate 17(L) >=60 mL/min/1. 73 m?? [facility] Comment: This patient's estimated [...] S Performing Organization Address [facility] Co de Phone Number [facility] [place] [address] * Potassium (05/16/2023 11:15 PM EDT) Potassium 3.7 3.5 - 5.0 mmol/L [facility] Comment: Please note: ??Patients [...] Address City/[facility]/ZIP Co de Phone Number [facility] [place] [address] * Magnesium (05/16/2023 5:22 PM EDT) Magnesium 0.96 0.69 - 1.07 mmol/L [facility] Blood 05/16/2023 5:22 PM EDT 05/16/2023 5:27 PM EDT Narrative Resulting Agency Comment Spec In Lab Alirio Hudson MD CHEMISTRY ORDERABLE S [facility] [place] [address] * (ABNORMAL) Basic Metabolic Panel (non-fasting) (05/16/2023 5:22 PM EDT) Glucose 106 65 - 199 mg/dL [facility] Comment:Diabetes: >=200 mg/d L plus symptoms Blood Urea Nitrogen 103(H) 8 - 18 mg/dL [facility] Creatinine 3.91(H) 0.70 - 1.20 mg/dL [facility] Comment:result rechecked-imm Sodium 132(L) 135 - 145 mmol/L [facility] Potassium 3.6 3.5 - 5.0 mmol/L [facility] Comment: Please note: ??Patients with WBC >100,000 may have falsely elevated Potassium levels. ??For accurate Potassium quantification in these patients send serum separator tube (gold top) for subsequent determinations. ??Contact the Clinical Chemistry Laboratory if there are any questions. Chloride 92(L) 98 - 107 mmol/L [facility] Carbon Dioxide 22 22 - 31 mmol/L [facility] Anion Gap 18(H) 5 - 15 mmol/L [facility] Calcium 9.7 8.5 - 10.5 mg/dL [facility] Est Glomerular Filtration Rate 12(L) >=60 mL/min/1. 73 m?? [facility] Comment: This patient's estimated [...] Lab Alriio Hudson MD CHEMISTRY ORDERABLE S Performing Organization Address [facility] Co de Phone Number [facility] [place] [address] * (ABNORMAL) Potassium (05/16/2023 11:43 AM EDT) [facility] Potassium 3.3(L) 3.5 - 5.0 mmol/L [facility] Comment: Please note: ??Patients [...] S Performing Organization Address [facility] de Phone Number [facility] [place] [address] * (ABNORMAL) Ferritin (05/16/2023 4:41 AM EDT) Ferritin 1,813(H) 30 - 400 ng/mL [facility] Comment: Pediatric reference ranges not verified at [facility], interpret with caution. Reference ranges for females greater than 50 years of age approach values for men, i.e., 30-400 ng/mL. Blood 05/16/2023 4:41 AM EDT 05/16/2023 4:54 AM EDT Narrative Resulting Agency Comment Spec In Lab Kristopher Ayoub MD CHEMISTRY ORDERABLES Performing Organization Address City/[facility]/ZIP Co de Phone Number [facility] [place] [address] * (ABNORMAL) PTH (05/16/2023 4:41 AM EDT) Parathyroid Hormone 120(H) 15 - 65 pg/mL [facility] Blood 05/16/2023 4:41 AM EDT 05/16/2023 4:54 AM EDT Narrative Resulting Agency Comment Spec In Lab Kristopher Ayoub MD CHEMISTRY ORDERABLES Performing Organization Address [facility] Co de Phone Number [facility] [place] [address] * Vitamin D, 25-Hydroxy (05/16/2023 4:41 AM EDT) Pathologist [facility] Vitamin D Total 25 OH 33 21 - 100 ng/mL [facility] Vit D Interp Sufficient [facility] Blood 05/16/2023 4:41 AM EDT 05/16/2023 4:54 AM EDT Narrative Resulting Agency Comment Spec In Lab Kristopher Ayoub MD CHEMISTRY ORDERABLES Performing Organization Address [facility] Co de Phone Number [facility] [place] [address] * (ABNORMAL) Blood Gas Venous ([facility]) (05/16/2023 4:22 AM EDT) pH, Venous 7.41 7.32 - 7.42 [facility] PCO2, Venous 32(L) 41 - 51 mmHg [facility] PO2, Venous 73(H) 25 - 40 mmHg [facility] Bicarbonate, Venous 19.6 mmol/L [facility] Base Excess, Venous -5.1 mmol/L [facility] Hgb Blood Gas 9.7(L) 11.7 - 15.5 g/dL [facility] Oxyhemoglobin, Venous 92.8 % [facility] Carboxyhemoglob in, Venous 0.1 % [facility] Comment: Nonsmokers: 0.5-1.5% COHB Smokers: Variable, but usually less than 10% Toxic: 20-30% COHB Lethal: Greater than 60% COHB Methemoglobin, Venous 0.3 <=1.5 % [facility] Na Whole Blood 130(L) 135 - 145 mmol/L [facility] K Whole Blood 3.7 3.5 - 5.0 mmol/L [facility] Comment: Please note: Patients with WBC >100,000 may have falsely elevated Potassium levels. Contact the Clinical Chemistry Laboratory if there are any questions. ICa Whole Blood 1.15 1.15 - 1.33 mmol/L [facility] Comment: Note: ??Total bilirubin higher than 20 mg/dL may lead to falsely low ionized calcium. CL Whole Blood 95(L) 98 - 107 mmol/L [facility] Gluc Whole Bld 82 65 - 199 mg/dL [facility] Comment:Diabetes: >=200 mg/d L plus symptoms Lactate WB 1.1 0.5 - 2.2 mmol/L [facility] Blood Gas Source Venous [facility] Blood Venous Draw / Unknown 05/16/2023 4:22 AM EDT 05/16/2023 4:31 AM EDT Narrative Resulting Agency Comment Spec In Lab Bonita TOBAR CHEMISTRY ORDERABLES Performing Organization Address City/State/[facility] Co de Phone Number [facility] [place] [address] * (ABNORMAL) Differential, Automated (05/16/2023 4:20 AM EDT) Neutrophil % 84.1 % [facility] Neutrophil Absolute 6.22(H) 1.70 - 6.10 x10(3)/mc L [facility] Lymph % 5.8 % [facility] Lymphocytes Abs 0.4(L) 0.9 - 3.2 x10(3)/mc L [facility] Monocyte % 8.8 % [facility] Monocyte Abs 0.6 0.3 - 0.9 x10(3)/mc L [facility] Eos % 0.4 % [facility] Eosinophils Abs 0.0 0.0 - 0.4 x10(3)/mc L [facility] Basophil % 0.0 % [facility] Baso Absolute 0.0 0.0 - 0.1 x10(3)/mc L [facility] Immature Gran % 0.90 % [facility] Comment: Immature granulocytes(IG's)percentage and absolute count will include metamyelocytes, myelocytes, and promyelocytes. Blood smears from CBCs yielding IG's will be scanned manually for concordance. If this scan disagrees with the automated IG or if promyelocytes are noted, a manual differential will be performed. Immature Gran Absolute 0.07(H) 0.00 - 0.04 x10(3)/ L [facility] Blood 05/16/2023 4:20 AM EDT 05/16/2023 4:29 AM EDT Narrative Resulting Agency Comment Spec In Lab James Agustin MD HEMATOLOGY ORDER JODIE [facility] [place] [address] * (ABNORMAL) Hemogram (05/16/2023 4:20 AM EDT) White Blood Cell 7.4 4.0 - 9.5 x10(3)/mc L [facility] Red Blood Cell 2.40(L) 4.00 - 5.21 x10(6)/ L [facility] Hemoglobin 7.8(L) 11.7 - 15.5 g/dL [facility] Hematocrit 22.5(L) 35.7 - 45.8 % [facility] Mean Cell Volume 93.8 82.6 - 94.4 fL [facility] Mean Cell Hemoglobin 32.5(H) 27.1 - 32.0 pg [facility] Mean Cell Hemoglobin Concentration 34.7 31.7 - 35.0 g/dL [facility] Platelet 120(L) 145 - 357 x10(3)/mc L [facility] RDW Standard Deviation 42.9 37.0 - 46.0 fL [facility] RDW coefficient of variation 12.9 11.5 - 14.1 % [facility] Mean Platelet Volume 11.3 7.6 - 12.9 fL [facility] NRBC% auto 0.7 % [facility] NRBC Absolute 0.050(H) 0.000 - 0.000 x10(3)/mc L [facility] Blood 05/16/2023 4:20 AM EDT 05/16/2023 4:29 AM EDT Narrative Resulting Agency Comment Spec In Lab James Agustin MD HEMATOLOGY ORDER JODIE [facility] [place] [address] * (ABNORMAL) Basic Metabolic Panel (non-fasting) (05/16/2023 4:20 AM EDT) Glucose 89 65 - 199 mg/dL [facility] Comment:Diabetes: >=200 mg/d L plus symptoms Blood Urea Nitrogen 108(H) 8 - 18 mg/dL [facility] Creatinine 4.74(H) 0.70 - 1.20 mg/dL [facility] Comment:result rechecked-OLIVA Sodium 132(L) 135 - 145 mmol/L [facility] Potassium 3.9 3.5 - 5.0 mmol/L [facility] Comment: Please note: ??Patients with WBC >100,000 may have falsely elevated Potassium levels. ??For accurate Potassium quantification in these patients send serum separator tube (gold top) for subsequent determinations. ??Contact the Clinical Chemistry Laboratory if there are any questions. Chloride 95(L) 98 - 107 mmol/L [facility] Carbon Dioxide 18(L) 22 - 31 mmol/L [facility] Anion Gap 19(H) 5 - 15 mmol/L [facility] Calcium 9.2 8.5 - 10.5 mg/dL [facility] Est Glomerular Filtration Rate 10(L) >=60 mL/min/1. 73 m?? [facility] Comment: This patient's estimated [...] Address City/[facility]/ZIP Co de Phone Number [facility] [place] [address] * (ABNORMAL) Iron and TIBC (05/16/2023 4:20 AM EDT) Iron 31 30 - 150 mcg/dL [facility] TIBC 259 250 - 450 mcg/dL [facility] Iron Saturation 12(L) 20 - 50 % [facility] Blood 05/16/2023 4:20 AM EDT 05/16/2023 4:29 AM EDT Narrative Resulting Agency Comment Spec In Lab Kristopher Ayoub MD CHEMISTRY ORDERABLES Performing Organization Address [facility]/ZIP Co de Phone Number [facility] [place] [address] * (ABNORMAL) Basic Metabolic Panel (non-fasting) (05/15/2023 12:50 AM EDT) Glucose 101 65 - 199 mg/dL [facility] Comment:Diabetes: >=200 mg/d L plus symptoms Blood Urea Nitrogen 109(H) 8 - 18 mg/dL [facility] Creatinine 5.62(H) 0.70 - 1.20 mg/dL [facility] Comment:result rechecked-KS Sodium 131(L) 135 - 145 mmol/L [facility] Comment:result rechecked-KS Potassium 3.7 3.5 - 5.0 mmol/L [facility] Comment: result rechecked-KS Please note: ??Patients with WBC >100,000 may have falsely elevated Potassium levels. ??For accurate Potassium quantification in these patients send serum separator tube (gold top) for subsequent determinations. ??Contact the Clinical Chemistry Laboratory if there are any questions. Chloride 92(L) 98 - 107 mmol/L [facility] Comment:result rechecked-KS Carbon Dioxide 18(L) 22 - 31 mmol/L [facility] Comment:result rechecked-KS Anion Gap 21(H) 5 - 15 mmol/L [facility] Calcium 8.9 8.5 - 10.5 mg/dL [facility] Est Glomerular Filtration Rate 8(L) >=60 mL/min/1. 73 m?? [facility] Comment: This patient's estimated [...] City/State/[facility] Co de Phone Number [facility] [place] [address] * (ABNORMAL) Hemogram (05/15/2023 12:50 AM EDT) White Blood Cell 9.1 4.0 - 9.5 x10(3)/mc L [facility] Red Blood Cell 2.19(L) 4.00 - 5.21 x10(6)/mc L [facility] Hemoglobin 7.2(L) 11.7 - 15.5 g/dL [facility] Hematocrit 20.6(L) 35.7 - 45.8 % [facility] Mean Cell Volume 94.1 82.6 - 94.4 fL [facility] Mean Cell Hemoglobin 32.9(H) 27.1 - 32.0 pg [facility] Mean Cell Hemoglobin Concentration 35.0 31.7 - 35.0 g/dL [facility] Platelet 109(L) 145 - 357 x10(3)/mc L [facility] RDW Standard Deviation 43.6 37.0 - 46.0 fL [facility] RDW coefficient of variation 12.9 11.5 - 14.1 % [facility] Mean Platelet Volume 10.4 7.6 - 12.9 fL [facility] NRBC% auto 2.1 % [facility] NRBC Absolute 0.190(H) 0.000 - 0.000 x10(3)/mc L [facility] Blood 05/15/2023 12:5 0 AM EDT 05/15/2023 12:52 AM EDT Narrative Resulting Agency Comment Spec In Lab Alirio Hudson MD HEMATOLOGY ORDERABL ES [facility] [place] [address] * (ABNORMAL) BLOOD GAS 2 VENOUS (05/15/2023 12:49 AM EDT) pH, Venous 7.33 7.32 - 7.42 [facility] PCO2, Venous 37(L) 41 - 51 mmHg [facility] PO2, Venous 34 25 - 40 mmHg [facility] Bicarbonate, Venous 19.1 mmol/L [facility] Base Excess, Venous -6.8 mmol/L [facility] Hgb Blood Gas 10.8(L) 11.7 - 15.5 g/dL [facility] Oxyhemoglobin, Venous 58.1 % [facility] Carboxyhemoglob in, Venous 0.3 % [facility] Comment: Nonsmokers: 0.5-1.5% COHB Smokers: Variable, but usually less than 10% Toxic: 20-30% COHB Lethal: Greater than 60% COHB Methemoglobin, Venous 0.6 <=1.5 % [facility] Na Whole Blood 136 135 - 145 mmol/L [facility] K Whole Blood 3.7 3.5 - 5.0 mmol/L [facility] Comment: Please note: Patients with WBC >100,000 may have falsely elevated Potassium levels. Contact the Clinical Chemistry Laboratory if there are any questions. ICa Whole Blood 1.12(L) 1.15 - 1.33 mmol/L [facility] Comment: Note: ??Total bilirubin higher than 20 mg/dL may lead to falsely low ionized calcium. CL Whole Blood 95(L) 98 - 107 mmol/L [facility] Gluc Whole Bld 101 65 - 199 mg/dL [facility] Comment:Diabetes: >=200 mg/d L plus symptoms Lactate WB 1.3 0.5 - 2.2 mmol/L [facility] Flow, Mike 1.0 LPM [facility] Blood Gas Source Venous [facility] Blood 05/15/2023 12:4 9 AM EDT 05/15/2023 12:49 AM EDT Alirio Hudson MD POINT OF CARE TEST ORDERABLES Performing Organization Address City/State/[facility] Co de Phone Number [facility] [place] [address] * US Retroperitoneal Complete (05/14/2023 3:53 PM [...] who have questions, please contact the health laboratory animal caretaker that requested your imaging first. ? Hayden Robledo, Staff Physician Electronically Signed Final Report ?? 05/14/2023 04:39 pm Narrative 05/14/2023 4:39 PM EDT Renal ? (Signed Final 05/14/2023 04:39 pm) PATIENT INFO: ID #: ? [id number] ?: ??55 (67 yrs)(F) Name: ? PURNIMA THACKER ?Visit Date: 05/14/2023 03:44 pm PERFORMED BY: Attending: ?Meena CULP, Hayden Stafford Resident: ? Nell CULP, Anand August Performed By: ? Consuelo Tello RDMS Referred By: ?ALIRIO Powell BECCA Location: ? [place] SERVICE(S) PROVIDED: URETRO - Retroperitoneal Complete - [id number] ? [id number] INDICATIONS: EVANS COMPARISON: CT: Abdomen/Pelvis 05/11/23 RIGHT [...] 05/14/2023 04:39 pm) PATIENT INFO: ID #: [id number] : 55 (67 yrs)(F) Name: PURNIMA THACKER Visit Date: 05/14/2023 03:44 pm PERFORMED BY: Attending: Hayden Robledo MD Resident: Anand Camejo MD Performed By: Consuelo Tello RDMS Referred By: ALIRIO HUDSON Location: [place] SERVICE(S) PROVIDED: URETRO - Retroperitoneal Complete - [id number] INDICATIONS: EVANS COMPARISON: CT: Abdomen/Pelvis 05/11/23 RIGHT [...] Robledo MD, [facility] ([phone]), at 05/14/2023 4:32 PM Thank you for letting us participate in the care of this patient. If you are a health care provider and have any questions regarding this report, please contact the number above. For patients who have questions, please contact the health laboratory animal caretaker that requested your imaging first. Hayden Robledo, Staff Physician Electronically Signed Final Report 05/14/2023 04:39 pm Alirio Hudson MD IMG US GEN ORDERABL ES * CK (05/14/2023 3:17 PM EDT) Creatine Kinase 123 0 - 160 unit/L [facility] Blood 05/14/2023 3:17 PM EDT 05/14/2023 3:31 PM EDT Narrative Resulting Agency Comment Spec In Lab Alirio Hudson MD CHEMISTRY ORDERABLE S Performing Organization Address City/[facility] Co de Phone Number [facility] [place] [address] * (ABNORMAL) Uric acid (05/14/2023 3:17 PM EDT) Uric Acid 14.9(H) 2.5 - 6.5 mg/dL [facility] Blood 05/14/2023 3:17 PM EDT 05/14/2023 3:31 PM EDT Narrative Resulting Agency Comment Spec In Lab Alirio Hudson MD CHEMISTRY ORDERABLE S Performing Organization Address [facility] Co de Phone Number [facility] [place] [address] * (ABNORMAL) Osmolality (05/14/2023 3:17 PM EDT) Osmolality 311(H) 275 - 295 mOsm/kg [facility] Blood 05/14/2023 3:17 PM EDT 05/14/2023 3:31 PM EDT Narrative Resulting Agency Comment Spec In Lab Alirio Hudson MD CHEMISTRY ORDERABLE S Performing Organization Address [facility] Co de Phone Number [facility] [place] [address] * (ABNORMAL) Differential, Automated (05/14/2023 1:10 AM EDT) Neutrophil % 87.2 % [facility] Neutrophil Absolute 9.74(H) 1.70 - 6.10 x10(3)/mc L [facility] Lymph % 3.9 % [facility] Lymphocytes Abs 0.4(L) 0.9 - 3.2 x10(3)/mc L [facility] Monocyte % 7.9 % [facility] Monocyte Abs 0.9 0.3 - 0.9 x10(3)/mc L [facility] Eos % 0.0 % [facility] Eosinophils Abs 0.0 0.0 - 0.4 x10(3)/mc L [facility] Basophil % 0.1 % [facility] Baso Absolute 0.0 0.0 - 0.1 x10(3)/mc L [facility] Immature Gran % 0.90 % [facility] Comment: Immature granulocytes(IG's)percentage and absolute count will include metamyelocytes, myelocytes, and promyelocytes. Blood smears from CBCs yielding IG's will be scanned manually for concordance. If this scan disagrees with the automated IG or if promyelocytes are noted, a manual differential will be performed. Immature Gran Absolute 0.10(H) 0.00 - 0.04 x10(3)/ L [facility] Blood 05/14/2023 1:10 AM EDT 05/14/2023 1:24 AM EDT Narrative Resulting Agency Comment Spec In Lab Bonita TOBAR HEMATOLOGY ORDERABLE S Performing Organization Address City/State/[facility] Co de Phone Number [facility] [place] [address] * (ABNORMAL) Hemogram (05/14/2023 1:10 AM EDT) White Blood Cell 11.2(H) 4.0 - 9.5 x10(3)/mc L [facility] Red Blood Cell 2.19(L) 4.00 - 5.21 x10(6)/mc L [facility] Hemoglobin 7.2(L) 11.7 - 15.5 g/dL [facility] Hematocrit 20.3(L) 35.7 - 45.8 % [facility] Mean Cell Volume 92.7 82.6 - 94.4 fL [facility] Mean Cell Hemoglobin 32.9(H) 27.1 - 32.0 pg [facility] Mean Cell Hemoglobin Concentration 35.5(H) 31.7 - 35.0 g/dL [facility] Platelet 112(L) 145 - 357 x10(3)/mc L [facility] RDW Standard Deviation 41.4 37.0 - 46.0 fL [facility] RDW coefficient of variation 12.5 11.5 - 14.1 % [facility] Mean Platelet Volume 10.4 7.6 - 12.9 fL [facility] NRBC% auto 1.5 % [facility] NRBC Absolute 0.170(H) 0.000 - 0.000 x10(3)/mc L [facility] Blood 05/14/2023 1:10 AM EDT 05/14/2023 1:24 AM EDT Narrative Resulting Agency Comment Spec In Lab Bonita TOBAR HEMATOLOGY ORDERABLE S [facility] [place] [address] * (ABNORMAL) Comprehensive metabolic panel (non-fasting) (05/14/2023 1:10 AM EDT) Glucose 120 65 - 199 mg/dL [facility] Comment:Diabetes: >=200 mg/d L plus symptoms Blood Urea Nitrogen 98(H) 8 - 18 mg/dL [facility] Creatinine 4.80(H) 0.70 - 1.20 mg/dL [facility] Comment:result rechecked-ssc Sodium 132(L) 135 - 145 mmol/L [facility] Potassium 4.1 3.5 - 5.0 mmol/L [facility] Comment: Please note: ??Patients with WBC >100,000 may have falsely elevated Potassium levels. ??For accurate Potassium quantification in these patients send serum separator tube (gold top) for subsequent determinations. ??Contact the Clinical Chemistry Laboratory if there are any questions. Chloride 94(L) 98 - 107 mmol/L [facility] Carbon Dioxide 18(L) 22 - 31 mmol/L [facility] Anion Gap 20(H) 5 - 15 mmol/L [facility] Calcium 8.5 8.5 - 10.5 mg/dL [facility] Protein, Total 5.8(L) 6.1 - 8.0 g/dL [facility] Albumin 3.6 3.2 - 5.2 g/dL [facility] Aspartate Aminotransferase 319(H) 0 - 30 unit/L [facility] Alanine Aminotransferase 437(H) 0 - 30 unit/L [facility] Alkaline Phosphatase 86 35 - 105 unit/L [facility] Bilirubin, Total 0.4 0.2 - 1.3 mg/dL [facility] Est Glomerular Filtration Rate 9(L) >=60 mL/min/1. 73 m?? [facility] Comment: This patient's estimated [...] Address City/[facility]/[place] [address] * APTT (05/13/2023 10:15 AM EDT) Partial Thromboplastin Time 27 25 - 37 sec [facility] Comment: The PTT is NOT appropriate for heparin monitoring. Use the Anti-Xa level for heparin monitoring (HEP UFH) or LMWH monitoring (HEP LMW). A PTT less than 37 seconds generally indicates adequate hemostasis. Blood 05/13/2023 10:1 5 AM EDT 05/13/2023 10:46 AM EDT Narrative Resulting Agency Comment Spec In Lab Alirio Hudson MD HEMATOLOGY ORDERABL ES Performing Organization Address City/[facility]/ZIP Co de Phone Number [facility] [place] [address] * (ABNORMAL) Prothrombin Time (05/13/2023 10:15 AM EDT) Prothrombin Time 14.6(H) 9.4 - 12.5 sec [facility] International Normalization Ratio 1.3 [facility] Comment: An INR <2.0 [...] MD HEMATOLOGY ORDERABL ES Performing Organization Address City/[facility]/ZIP Co de Phone Number [facility] [place] [address] * EKG 12 Lead (05/13/2023 9:22 AM [...] interpretation Confirmed by fellow MD Anitha, Carissa ([id number]) on 05/13/2023 3:25:30 PM Confirmed by Maxx Best ([id number]) on 05/13/2023 8:30:56 PM M[facility] SYSTEM 05/13/2023 9:22 AM EDT 05/13/2023 8:30 PM EDT Alirio Hudson MD ECG ORDERABLES Performing Organization Address City/[facility]/ZIP Co de Phone Number [facility] * (ABNORMAL) Differential, Automated (05/13/2023 1:15 AM EDT) Neutrophil % 88.1 % [facility] Neutrophil Absolute 7.62(H) 1.70 - 6.10 x10(3)/mc L [facility] Lymph % 3.1 % [facility] Lymphocytes Abs 0.3(L) 0.9 - 3.2 x10(3)/mc L [facility] Monocyte % 7.9 % [facility] Monocyte Abs 0.7 0.3 - 0.9 x10(3)/ L [facility] Eos % 0.0 % [facility] Eosinophils Abs 0.0 0.0 - 0.4 x10(3)/ L [facility] Basophil % 0.1 % [facility] Baso Absolute 0.0 0.0 - 0.1 x10(3)/ L [facility] Immature Gran % 0.80 % [facility] Comment: Immature granulocytes(IG's)percentage and absolute count will include metamyelocytes, myelocytes, and promyelocytes. Blood smears from CBCs yielding IG's will be scanned manually for concordance. If this scan disagrees with the automated IG or if promyelocytes are noted, a manual differential will be performed. Immature Gran Absolute 0.07(H) 0.00 - 0.04 x10(3)/ L [facility] Blood 05/13/2023 1:15 AM EDT 05/13/2023 1:29 AM EDT Narrative Resulting Agency Comment Spec In Lab Lorri TOBAR HEMATOLOGY ORDERABLE S [facility] [place] [address] * (ABNORMAL) Hemogram (05/13/2023 1:15 AM EDT) White Blood Cell 8.6 4.0 - 9.5 x10(3)/mc L [facility] Red Blood Cell 2.37(L) 4.00 - 5.21 x10(6)/ L [facility] Hemoglobin 7.8(L) 11.7 - 15.5 g/dL [facility] Hematocrit 22.2(L) 35.7 - 45.8 % [facility] Mean Cell Volume 93.7 82.6 - 94.4 fL [facility] Mean Cell Hemoglobin 32.9(H) 27.1 - 32.0 pg [facility] Mean Cell Hemoglobin Concentration 35.1(H) 31.7 - 35.0 g/dL [facility] Platelet 130(L) 145 - 357 x10(3)/mc L [facility] RDW Standard Deviation 41.7 37.0 - 46.0 fL [facility] RDW coefficient of variation 12.5 11.5 - 14.1 % [facility] Mean Platelet Volume 10.2 7.6 - 12.9 fL [facility] NRBC% auto 0.5 % [facility] NRBC Absolute 0.040(H) 0.000 - 0.000 x10(3)/mc L [facility] Blood 05/13/2023 1:15 AM EDT 05/13/2023 1:29 AM EDT Narrative Resulting Agency Comment Spec In Lab Lorri TOBAR HEMATOLOGY ORDERABLE S [facility] [place] [address] * (ABNORMAL) Hepatic Function Panel (05/13/2023 1:15 AM EDT) Protein, Total 5.5(L) 6.1 - 8.0 g/dL [facility] Albumin 3.0(L) 3.2 - 5.2 g/dL [facility] Aspartate Aminotransferase 792(H) 0 - 30 unit/L [facility] Alanine Aminotransferase 903(H) 0 - 30 unit/L [facility] Alkaline Phosphatase 85 35 - 105 unit/L [facility] Bilirubin, Total 0.5 0.2 - 1.3 mg/dL [facility] Bilirubin, Direct 0.3 0.0 - 0.3 mg/dL [facility] Blood 05/13/2023 1:15 AM EDT 05/13/2023 1:29 AM EDT Narrative Resulting Agency Comment Spec In Lab Alirio Hudson MD CHEMISTRY ORDERABLE S [facility] [place] [address] * (ABNORMAL) Basic Metabolic Panel (non-fasting) (05/13/2023 1:15 AM EDT) Glucose 107 65 - 199 mg/dL [facility] Comment:Diabetes: >=200 mg/d L plus symptoms Blood Urea Nitrogen 82(H) 8 - 18 mg/dL [facility] Creatinine 3.15(H) 0.70 - 1.20 mg/dL [facility] Comment:result rechecked-JSJ Sodium 132(L) 135 - 145 mmol/L [facility] Potassium 3.8 3.5 - 5.0 mmol/L [facility] Comment: Please note: ??Patients with WBC >100,000 may have falsely elevated Potassium levels. ??For accurate Potassium quantification in these patients send serum separator tube (gold top) for subsequent determinations. ??Contact the Clinical Chemistry Laboratory if there are any questions. Chloride 95(L) 98 - 107 mmol/L [facility] Carbon Dioxide 20(L) 22 - 31 mmol/L [facility] Anion Gap 17(H) 5 - 15 mmol/L [facility] Calcium 8.3(L) 8.5 - 10.5 mg/dL [facility] Est Glomerular Filtration Rate 16(L) >=60 mL/min/1. 73 m?? [facility] Comment: This patient's estimated [...] Lab Alirio Hudson MD CHEMISTRY ORDERABLE S [facility] [place] [address] * (ABNORMAL) BLOOD GAS 2 ARTERIAL (05/12/2023 3:57 PM EDT) pH, Arterial 7.39 7.35 - 7.45 [facility] PCO2, Arterial 33(L) 35 - 45 mmHg [facility] PO2, Arterial 101 85 - 104 mmHg [facility] Bicarbonate, Arterial 19.5(L) 20.0 - 26.0 mmol/L [facility] Base Excess, Arterial -5.5(L) -3.0 - 3.0 mmol/L [facility] Hgb Blood Gas 9.8(L) 11.7 - 15.5 g/dL [facility] Oxyhemoglobin, Arterial 95.2 94.0 - 97.0 % [facility] Carboxyhemoglob in, Arterial 0.2 % [facility] Comment: Nonsmokers: 0.5-1.5% COHB Smokers: Variable, but usually less than 10% Toxic: 20-30% COHB Lethal: Greater than 60% COHB Methemoglobin, Arterial 0.8 <=1.5 % [facility] Na Whole Blood 129(L) 135 - 145 mmol/L [facility] K Whole Blood 3.8 3.5 - 5.0 mmol/L [facility] Comment: Please note: Patients with WBC >100,000 may have falsely elevated Potassium levels. Contact the Clinical Chemistry Laboratory if there are any questions. ICa Whole Blood 1.05(L) 1.15 - 1.33 mmol/L [facility] Comment: Note: ??Total bilirubin higher than 20 mg/dL may lead to falsely low ionized calcium. CL Whole Blood 96(L) 98 - 107 mmol/L [facility] Gluc Whole Bld 178 65 - 199 mg/dL [facility] Comment:Diabetes: >=200 mg/d L plus symptoms. Lactate WB 1.5 0.5 - 2.2 mmol/L [facility] FIO2 Art 40 % [facility] PF Ratio Art 252 [facility] Blood 05/12/2023 3:57 PM EDT 05/12/2023 3:57 PM EDT Alirio Hudson MD POINT OF CARE TEST ORDERABLES Performing Organization Address City/[facility] Co de Phone Number [facility] [place] [address] * (ABNORMAL) Coox2 (05/12/2023 2:25 PM EDT) pO2, Coox 37 mmHg [facility] Hgb Blood Gas 9.5(L) 11.7 - 15.5 g/dL [facility] Oxyhemoglobin, Coox 59.9 % [facility] Carboxyhemoglo bin, Coox 0.3 % [facility] Comment: Nonsmokers: 0.5-1.5% COHB Smokers: Variable, but usually less than 10% Toxic: 20-30% COHB Lethal: Greater than 60% COHB Methemoglobin, Coox 0.7 <=1.5 % [facility] Source Coox Mixed Venous [facility] Blood 05/12/2023 2:25 PM EDT 05/12/2023 2:25 PM EDT Alirio Hudson MD POINT OF CARE TEST ORDERABLES Performing Organization Address [facility] Co de Phone Number [facility] [place] [address] * (ABNORMAL) BLOOD GAS 2 ARTERIAL (05/12/2023 2:23 PM EDT) pH, Arterial 7.37 7.35 - 7.45 [facility] PCO2, Arterial 36 35 - 45 mmHg [facility] PO2, Arterial 102 85 - 104 mmHg [facility] Bicarbonate, Arterial 20.4 20.0 - 26.0 mmol/L [facility] Base Excess, Arterial -4.8(L) -3.0 - 3.0 mmol/L [facility] Hgb Blood Gas 12.7 11.7 - 15.5 g/dL [facility] Oxyhemoglobin, Arterial 95.4 94.0 - 97.0 % [facility] Carboxyhemoglob in, Arterial 0.3 % [facility] Comment: Nonsmokers: 0.5-1.5% COHB Smokers: Variable, but usually less than 10% Toxic: 20-30% COHB Lethal: Greater than 60% COHB Methemoglobin, Arterial 0.7 <=1.5 % [facility] Na Whole Blood 129(L) 135 - 145 mmol/L [facility] K Whole Blood 3.7 3.5 - 5.0 mmol/L [facility] Comment: Please note: Patients with WBC >100,000 may have falsely elevated Potassium levels. Contact the Clinical Chemistry Laboratory if there are any questions. ICa Whole Blood 1.05(L) 1.15 - 1.33 mmol/L [facility] Comment: Note: ??Total bilirubin higher than 20 mg/dL may lead to falsely low ionized calcium. CL Whole Blood 95(L) 98 - 107 mmol/L [facility] Gluc Whole Bld 168 65 - 199 mg/dL [facility] Comment:Diabetes: >=200 mg/d L plus symptoms. Lactate WB 1.8 0.5 - 2.2 mmol/L [facility] FIO2 Art 40 % [facility] PF Ratio Art 255 [facility] Blood 05/12/2023 2:23 PM EDT 05/12/2023 2:23 PM EDT Alirio Hudson MD POINT OF CARE TEST ORDERABLES Performing Organization Address City/State/[facility] Co de Phone Number [facility] [place] [address] * (ABNORMAL) Troponin (05/12/2023 2:05 PM EDT) Troponin-T, High Sensitivity 1,022(H) <=14 ng/L [facility] Comment: This patient's troponin [...] troponin value can be found in the [facility] Test Catalog Troponin - [facility] Test Catalog Reference: Fourth [place] Definition of Myocardial Infarction. Journal of the [place] [employer] 2018;72:2178-9217 Blood 05/12/2023 2:05 PM EDT 05/12/2023 2:14 PM EDT Narrative Resulting Agency Comment Spec In Lab Alirio Hudson MD CHEMISTRY ORDERABLE S Performing Organization Address [facility]/ZIP Co de Phone Number [facility] [place] [address] * (ABNORMAL) Hemoglobin (05/12/2023 2:05 PM EDT) Hemoglobin 8.5(L) 11.7 - 15.5 g/dL [facility] Blood 05/12/2023 2:05 PM EDT 05/12/2023 2:14 PM EDT Narrative Resulting Agency Comment Spec In Lab Alirio Hudson MD HEMATOLOGY ORDERABL ES Performing Organization Address [facility] Co de Phone Number [facility] [place] [address] * Potassium (05/12/2023 2:05 PM EDT) Potassium 3.9 3.5 - 5.0 mmol/L [facility] Comment: Please note: ??Patients [...] Lab Alirio Hudson MD CHEMISTRY ORDERABLE S [facility] [place] [address] * (ABNORMAL) BLOOD GAS 2 ARTERIAL (05/12/2023 11:05 AM EDT) pH, Arterial 7.34(L) 7.35 - 7.45 [facility] PCO2, Arterial 42 35 - 45 mmHg [facility] PO2, Arterial 73(L) 85 - 104 mmHg [facility] Bicarbonate, Arterial 22.1 20.0 - 26.0 mmol/L [facility] Base Excess, Arterial -3.6(L) -3.0 - 3.0 mmol/L [facility] Hgb Blood Gas 9.3(L) 11.7 - 15.5 g/dL [facility] Oxyhemoglobin, Arterial 89.3(L) 94.0 - 97.0 % [facility] Carboxyhemoglob in, Arterial 0.2 % [facility] Comment: Nonsmokers: 0.5-1.5% COHB Smokers: Variable, but usually less than 10% Toxic: 20-30% COHB Lethal: Greater than 60% COHB Methemoglobin, Arterial 0.9 <=1.5 % [facility] LABORATORY Na Whole Blood 131(L) 135 - 145 mmol/L [facility] K Whole Blood 3.8 3.5 - 5.0 mmol/L [facility] Comment: Please note: Patients with WBC >100,000 may have falsely elevated Potassium levels. Contact the Clinical Chemistry Laboratory if there are any questions. ICa Whole Blood 1.04(L) 1.15 - 1.33 mmol/L [facility] Comment: Note: ??Total bilirubin higher than 20 mg/dL may lead to falsely low ionized calcium. CL Whole Blood 96(L) 98 - 107 mmol/L [facility] Gluc Whole Bld 152 65 - 199 mg/dL [facility] Comment:Diabetes: >=200 mg/d L plus symptoms. Lactate WB 2.8(H) 0.5 - 2.2 mmol/L [facility] FIO2 Art 40 % [facility] PF Ratio Art 182 [facility] Blood 05/12/2023 11:0 5 AM EDT 05/12/2023 11:05 AM EDT Alirio Hudson MD POINT OF CARE TEST ORDERABLES [facility] [place] [address] * (ABNORMAL) BLOOD GAS 2 ARTERIAL (05/12/2023 10:14 AM EDT) pH, Arterial 7.18(Criti gabrielle) 7.35 - 7.45 [facility] Comment:Noted by instrument tech. PCO2, Arterial 45 35 - 45 mmHg [facility] PO2, Arterial 186(H) 85 - 104 mmHg [facility] Bicarbonate, Arterial 16.2(L) 20.0 - 26.0 mmol/L [facility] Base Excess, Arterial -12.2(L) -3.0 - 3.0 mmol/L [facility] Hgb Blood Gas 10.0(L) 11.7 - 15.5 g/dL [facility] Oxyhemoglobin, Arterial 97.0 94.0 - 97.0 % [facility] Carboxyhemoglob in, Arterial 0.2 % [facility] Comment: Nonsmokers: 0.5-1.5% COHB Smokers: Variable, but usually less than 10% Toxic: 20-30% COHB Lethal: Greater than 60% COHB Methemoglobin, Arterial 0.9 <=1.5 % [facility] Na Whole Blood 129(L) 135 - 145 mmol/L [facility] K Whole Blood 3.6 3.5 - 5.0 mmol/L [facility] Comment: Please note: Patients with WBC >100,000 may have falsely elevated Potassium levels. Contact the Clinical Chemistry Laboratory if there are any questions. ICa Whole Blood 1.10(L) 1.15 - 1.33 mmol/L [facility] Comment: Note: ??Total bilirubin higher than 20 mg/dL may lead to falsely low ionized calcium. CL Whole Blood 97(L) 98 - 107 mmol/L [facility] Gluc Whole Bld 161 65 - 199 mg/dL [facility] Comment:Diabetes: >=200 mg/d L plus symptoms. Lactate WB 3.3(H) 0.5 - 2.2 mmol/L [facility] FIO2 Art 100 % [facility] PF Ratio Art 186 [facility] Blood 05/12/2023 10:1 4 AM EDT 05/12/2023 10:14 AM EDT Alirio Hudson MD POINT OF CARE TEST ORDERABLES Performing Organization Address City/[facility]/ZIP Co de Phone Number [facility] [place] [address] * EKG 12 Lead (05/12/2023 10:10 AM [...] hypertrophy with repolarization abnormality ( Sokolow-Orozco , [place] product ) ST & T wave abnormality in Inferolateral leads Abnormal ECG When compared with ECG of 10-MAY-2023 13:16, ST & T wave abnormality is more pronounced in inferolateral leads I personally reviewed the tracing and edited the fellows interpretation Confirmed by fellow MD Licea Andrew ([id number]) on 05/12/2023 1:04:20 PM Confirmed by MD Villareal Danette ([id number]) on 05/12/2023 9:28:34 PM MUSE SYSTEM 05/12/2023 10:1 0 AM EDT 05/12/2023 9:28 PM EDT Alirio Hudson MD ECG ORDERABLES Performing Organization Address City[place] [...] who have questions please contact the health laboratory animal caretaker that requested your imaging first. ? Electronically signed by: Chyna Johnson MD, [facility] ??([phone]), at 05/12/2023 10:08 AM Narrative 05/12/2023 10:08 AM EDT EXAMINATION: XR CHEST ONE VIEW CLINICAL HISTORY: Post TAVR TECHNIQUE: 1 view of the chest COMPARISON: Chest radiograph from earlier today FINDINGS: Interval placement of endotracheal tube with tip terminating 2 cm above the shira. Interval placement of enteric tube projecting along the expected course of the esophagus and outside the qlvnc-cg-bira. Interval retraction of right IJ approach pulmonary [...] expected course ofthe esophagus and outside the wtuld-ej-ejod. Interval retraction of right IJ approach pulmonary [...] patients who have questions please contactthe health laboratory animal caretaker that requested your imaging first. Electronically signed by: Chyna Johnson MD, [facility]([phone]), at 05/12/2023 10:08 AM Alirio Hudson MD IMG DX ORDERABLES * ECHO LMTD W/O CONTRAST W LMTD SPEC DOPP COLOR DOPP (05/12/2023 9:23 AM EDT) EF 20 HEARTStopTheHacker SYSTEM Anatomical Region Laterality Modality Cardiac Other 05/12/2023 7:33 AM EDT Narrative 05/12/2023 10:18 AM EDT ? Echocardiogram Report Name: PURNIMA THACKER ?Study Date: 05/12/2023 07:33 AMBP: 96/63 mmHg ? Patient Location: [address] : 1955 ? Height: 154 cm ? Account: [id number] Age: 67 yrs ? Weight: 75 kg Gender: Female ?BSA: 1.7 m2 Ordering Physician: RADHA HOLLINS Referring Physician: RADHA HOLLINS Performed By: Dilma Bee RDCS Reason For Study: Guidance for TAVR procedure Exam Location: [facility]. Interpretation Summary PRE TAVR: There [...] mL/m2. POST TAVR: Normal function of the bjamt-mz-lsvak prosthesis. See below for hemodynamic parameters. Slight improvement in left and right ventricular systolic function. LVEF now 20-25%. No pericardial effusion. See report for additional findings. Procedure Limited - 92387. Doppler - 01131. Color Doppler - 71273. Left Ventricle Left ventricle is of normal [...] Date: 307:33 AMBP: 96/63 mmHg Patient Location: [address] : 1955 Height: 154 cm Account: [id number] Age: 67 yrs Weight: 75 kg Gender: Female BSA: 1.7 m2 Ordering Physician: RADHA HOLLINS Referring Physician: RADHA HOLLINS Performed By: Dilma Bee RDCS Reason For Study: Guidance for TAVR procedure Exam Location: [facility]. Interpretation Summary PRE TAVR: There [...] 28mL/m2. POST TAVR: Normal function of the opaus-vg-lyhfn prosthesis. See belowfor hemodynamic parameters. Slight improvement in left and right ventricularsystolic function. LVEF now 20-25%. No pericardial effusion. See report for additional findings. Procedure Limited - 68022. Doppler - 28118. Color Doppler - 71204. Left Ventricle Left ventricle is of normal [...] Modality Other Narrative 05/12/2023 2:37 PM EDT ?[facility] ? Cardiac Catheterization/Intervention Report ? Patient Name: Purnima Thacker M. ? Procedure Date: 05/12/2023 ? A #: [id number] ? Primary Physician: Zachary, Antelmo N ? Case #: [id number] ? File Name: [id number] ? Catheterization Order Number: [id number] ? [facility] ? Final Report [place], [place] ? Patient Name: ? Purnima M. Kirstie ? ID#: ?[id number] ? : ?1955 ? Procedure Date: ? May 12, 2023 ? Case #: ? [id number] ? Room: ? 6 ? Case Physicians: ?Antelmo Sharma M.D. ?Start: ?08:03 ?Alirio Hudson M.D. ?Admission: ??05/08/2023 ?Lynda Mcgowan M.D. ? Discharge: ??05/22/2023 ?Fellow: ? Rebekah Tejeda M.D. ? Referring Physician: ??Mario Alberto Chin M.D. ? Procedures: ?* Coronary Angiography ?* Left Heart Catheterization ?* Coronary Stent Insertion ?* Transcatheter Aortic Valve Replacement ?* Vascular Closure Device Deployment ?* Temporary Pacemaker Insertion In Paleontological Helper ?* Endotracheal Intubation By Non-Cath Physician [...] guide. ??A premounted 4.00 x 30 mm [place] Tyrrell (MINNA) was ? deployed with a maximum [...] calculated STS risk score was 30.1%. A uxgsd-la-duzio ?procedure was performed on the pre-existing bioprosthetic stented ?prosthesis. The priority of the stldg-dy-cgcjw procedure was Elective. ?The procedure was performed under Moderate sedation performed by Lynda Ramires ?Low, M.D. (see anesthesia report for additional details). Alirio Powell ?Adair Hudson participated in the case (see Cardiac Surgery report for ?additional details). ?The TAVR sheath was a 14 Fr Corona eSheath Introducer and the access ?site was femoral. Rapid ventricular pacing was performed. ?An Corona Lai 3 Ultra RESILIA 23 mm THV (s/k=[id number]) transcatheter ?valve was inserted using standard technique. [...] to nor was it given in the ?corn lab technician. ?Recommended anti-platelet/anti-thrombotic regimen: ?Continue aspirin 81 mg daily for indefinitely. ?These recommendations are made at the time of the intervention. Patient ?and provider preferences or a changing clinical situation may require ?modification of this regimen. Consult [facility] Interventional Cardiology for [...] regimen. ? Comments: ?Successful right transfemoral TAVR Jrpmz-uw-Qmeis with a 23 mm Lai 3 ?THV. [...] insertion-coronary, access site angiography, ?temporary pacemaker in corn lab technician, intubation-non cath physician, vascular ?closure device, transthoracic echo ??and TAVR. Dr. Alirio Hudson M.D. ?performed the left heart catheterization, access site angiography, ?temporary pacemaker in corn lab technician, vascular closure device, transthoracic ?echo , TAVR and CPR during cath. Dr. Lynda Mcgowan M.D. performed the ABG, ?anesthesia and intubation-non cath physician. ? Antelmo Sharma M.D. ? Electronically Signed by: Arabella OgdenD. ? Report Finalized: 05/12/2023 ??14:31 ? Report Last Ammended: 07/01/2023 ??11:30 ? Procedure Note Antelmo Sharma MD - 07/01/2023 [facility] Cardiac Catheterization/Intervention Report Patient Name: Purnima Thacker Procedure Date: 05/12/2023 A #: [id number] Primary Physician: Antelmo Sharma Case #: [id number] File Name: [id number] Catheterization Order Number: [id number] [facility] FinalReport [place], [place] Patient Name: Purnima Thacker ID#:[id number] :1955 Procedure Date: May 12, 2023 Case #: [id number] Room: 6 [facility] Physicians: Antelmo Sharma M.D. Start: 08:03 Alirio Hudson M.D. Admission:05/08/2023 Lynda Mcgowan M.D. Discharge:05/22/2023 Fellow: Rebekah Tejeda M.D. Referring Physician: Mario Alberto Chin M.D. Procedures: * Coronary Angiography * Left Heart Catheterization * Coronary Stent Insertion * Transcatheter Aortic Valve Replacement * Vascular Closure Device Deployment * Temporary Pacemaker Insertion In Paleontological Helper * Endotracheal Intubation By Non-Cath Physician [...] A premounted 4.00 x 30 mm [place] Tyrrell (MINNA) was deployed with a maximum inflation [...] calculated STS risk score was 30.1%. A qwapa-iy-zwect procedure was performed on the pre-existing bioprosthetic stented prosthesis. The priority of the angcd-rw-kvpgz procedure wasElective. The procedure was performed under Moderate sedation performed byLynda Mcgowan M.D. (see anesthesia report for additional details). Alirio Hudson M.D. participated in the case (see Cardiac Surgery reportfor additional details). The TAVR sheath was a 14 Fr Corona eSheath Introducer and theaccess site was femoral. Rapid ventricular pacing was performed. An Corona Lai 3 Ultra RESILIA 23 mm THV (s/t=[id number])transcatheter valve was inserted using standard technique. The [...] prior to nor was it given inthe corn lab technician. Recommended anti-platelet/anti-thrombotic regimen: Continue aspirin 81 mg daily for indefinitely. These recommendations are made at the time of the intervention.Patient and provider preferences or a changing clinical situation mayrequire modification of this regimen. Consult [facility] Interventional Cardiologyfor questions. [...] this regimen. Comments: Successful right transfemoral TAVR Ayakr-yl-Pkavm with a 23 mmSapien 3 THV. We [...] insertion-coronary, access site angiography, temporary pacemaker in corn lab technician, intubation-non cath physician,vascular closure device, transthoracic echo and TAVR. Dr. Alirio Hudson M.D. performed the left heart catheterization, access site angiography, temporary pacemaker in corn lab technician, vascular closure device,transthoracic echo , [...] pH, POC 7.20(Crit ical) 7.35 - 7.45 [facility] Comment:Critical value OK, C C Lab. pCO2, POC 42 35 - 45 mmHg [facility] pO2, POC 260(H) 85 - 104 mmHg [facility] Base Excess, POC -11.0(L) -3.0 - 3.0 mmol/L [facility] Bicarbonate, POC 16.7(L) 20.0 - 26.0 mmol/L [facility] Sodium, POC 129(L) 135 - 145 mmol/L [facility] POC Potassium 3.8 3.5 - 5.0 mmol/L [facility] Ionized Calcium, POC 1.12(L) 1.15 - 1.33 mmol/L [facility] POC Hematocrit 23.0(L) 34.0 - 45.0 % [facility] POC Calc Hgb 7.8(L) 11.2 - 15.7 g/dL [facility] Comment:The calculation of h emoglobin from hematocrit assumes a normal MCHC. POC Bgas Loc CC Lab [facility] Blood 05/12/2023 8:50 AM EDT 05/13/2023 12:00 PM EDT Alirio Hudson MD CHEMISTRY ORDERABLE S [facility] [place] [address] * (ABNORMAL) Point of Care Blood Gas Historical (05/12/2023 8:10 AM EDT) pH, POC 7.27(Crit ical) 7.35 - 7.45 [facility] Comment:Critical value OK, C C Lab. pCO2, POC 37 35 - 45 mmHg [facility] pO2, POC 29(Critic al) 85 - 104 mmHg [facility] Comment:Critical value OK, C C Lab. Base Excess, POC -10.0(L) -3.0 - 3.0 mmol/L [facility] Bicarbonate, POC 16.7(L) 20.0 - 26.0 mmol/L [facility] Sodium, POC 123(L) 135 - 145 mmol/L [facility] POC Potassium 4.0 3.5 - 5.0 mmol/L [facility] Ionized Calcium, POC 1.12(L) 1.15 - 1.33 mmol/L [facility] POC Hematocrit 27.0(L) 34.0 - 45.0 % [facility] POC Calc Hgb 9.2(L) 11.2 - 15.7 g/dL [facility] Comment:The calculation of h emoglobin from hematocrit assumes a normal MCHC. POC Bgas Loc CC Lab [facility] Blood 05/12/2023 8:10 AM EDT 05/13/2023 12:00 PM EDT Alirio Hudson MD CHEMISTRY ORDERABLE S [facility] [place] [address] * (ABNORMAL) Lactate, whole blood, send to lab ([facility]) (05/12/2023 7:00 AM EDT) Lactate WB 2.4(H) 0.5 - 2.2 mmol/L [facility] Blood 05/12/2023 7:00 AM EDT 05/12/2023 7:09 AM EDT Narrative Resulting Agency Comment Spec In Lab Radha Hollins MD CHEMISTRY ORDERABL ES [facility] [place] [address] * (ABNORMAL) Comprehensive metabolic panel (non-fasting) (05/12/2023 6:00 AM EDT) Glucose 167 65 - 199 mg/dL [facility] Comment:Diabetes: >=200 mg/d L plus symptoms Blood Urea Nitrogen 67(H) 8 - 18 mg/dL [facility] Creatinine 2.01(H) 0.70 - 1.20 mg/dL [facility] Sodium 131(L) 135 - 145 mmol/L [facility] Potassium 4.3 3.5 - 5.0 mmol/L [facility] Comment: Please note: ??Patients with WBC >100,000 may have falsely elevated Potassium levels. ??For accurate Potassium quantification in these patients send serum separator tube (gold top) for subsequent determinations. ??Contact the Clinical Chemistry Laboratory if there are any questions. Chloride 97(L) 98 - 107 mmol/L [facility] Carbon Dioxide 14(L) 22 - 31 mmol/L [facility] Anion Gap 20(H) 5 - 15 mmol/L [facility] Calcium 8.6 8.5 - 10.5 mg/dL [facility] Protein, Total 6.3 6.1 - 8.0 g/dL [facility] Albumin 3.5 3.2 - 5.2 g/dL [facility] Aspartate Aminotransferase 1,435(H) 0 - 30 unit/L [facility] Alanine Aminotransferase 1,174(H) 0 - 30 unit/L [facility] Alkaline Phosphatase 100 35 - 105 unit/L [facility] Bilirubin, Total 0.9 0.2 - 1.3 mg/dL [facility] Est Glomerular Filtration Rate 27(L) >=60 mL/min/1. 73 m?? [facility] Comment: This patient's estimated [...] Lab Radha Hollins [place] [address] * (ABNORMAL) Coox2 (05/12/2023 5:08 AM EDT) pO2, Coox 24 mmHg [facility] Hgb Blood Gas 10.4(L) 11.7 - 15.5 g/dL [facility] Oxyhemoglobin, Coox 30.7 % [facility] Carboxyhemoglo bin, Coox 0.3 % [facility] Comment: Nonsmokers: 0.5-1.5% COHB Smokers: Variable, but usually less than 10% Toxic: 20-30% COHB Lethal: Greater than 60% COHB Methemoglobin, Coox 0.8 <=1.5 % [facility] Source Coox Mixed Venous [facility] Blood 05/12/2023 5:08 AM EDT 05/12/2023 5:08 AM EDT Radha Hollins MD POINT [place] [address] * (ABNORMAL) Coox2 (05/12/2023 3:21 AM EDT) pO2, Coox 25 mmHg [facility] Hgb Blood Gas 10.8(L) 11.7 - 15.5 g/dL [facility] Oxyhemoglobin, Coox 32.7 % [facility] Carboxyhemoglo bin, Coox 0.3 % [facility] Comment: Nonsmokers: 0.5-1.5% COHB Smokers: Variable, but usually less than 10% Toxic: 20-30% COHB Lethal: Greater than 60% COHB Methemoglobin, Coox 0.7 <=1.5 % [facility] Source Coox Mixed Venous [facility] Blood 05/12/2023 3:21 AM EDT 05/12/2023 3:21 AM EDT Radha Hollins MD POINT OF CARE TEST ORDERABLES [facility] [place] [address] * (ABNORMAL) BLOOD GAS 2 ARTERIAL (05/12/2023 3:18 AM EDT) pH, Arterial 7.34(L) 7.35 - 7.45 [facility] PCO2, Arterial 30(L) 35 - 45 mmHg [facility] PO2, Arterial 72(L) 85 - 104 mmHg [facility] Bicarbonate, Arterial 16.0(L) 20.0 - 26.0 mmol/L [facility] Base Excess, Arterial -9.8(L) -3.0 - 3.0 mmol/L [facility] Hgb Blood Gas 11.0(L) 11.7 - 15.5 g/dL [facility] Oxyhemoglobin, Arterial 89.8(L) 94.0 - 97.0 % [facility] Carboxyhemoglob in, Arterial 0.3 % [facility] Comment: Nonsmokers: 0.5-1.5% COHB Smokers: Variable, but usually less than 10% Toxic: 20-30% COHB Lethal: Greater than 60% COHB Methemoglobin, Arterial 0.7 <=1.5 % [facility] Na Whole Blood 131(L) 135 - 145 mmol/L [facility] K Whole Blood 4.2 3.5 - 5.0 mmol/L [facility] Comment: Please note: Patients with WBC >100,000 may have falsely elevated Potassium levels. Contact the Clinical Chemistry Laboratory if there are any questions. ICa Whole Blood 1.12(L) 1.15 - 1.33 mmol/L [facility] Comment: Note: ??Total bilirubin higher than 20 mg/dL may lead to falsely low ionized calcium. CL Whole Blood 100 98 - 107 mmol/L [facility] Gluc Whole Bld 160 65 - 199 mg/dL [facility] Comment:Diabetes: >=200 mg/d L plus symptoms. Lactate WB 2.7(H) 0.5 - 2.2 mmol/L [facility] Flow Art 5.0 LPM [facility] Blood 05/12/2023 3:18 AM EDT 05/12/2023 3:18 AM EDT Radha Hollins MD POINT OF CARE TEST ORDERABLES Performing Organization Address City/[facility] Co de Phone Number [facility] [place] [address] * (ABNORMAL) Coox2 (05/12/2023 1:14 AM EDT) pO2, Coox 28 mmHg [facility] Hgb Blood Gas 10.9(L) 11.7 - 15.5 g/dL [facility] Oxyhemoglobin, Coox 37.3 % [facility] Carboxyhemoglo bin, Coox 0.3 % [facility] Comment: Nonsmokers: 0.5-1.5% COHB Smokers: Variable, but usually less than 10% Toxic: 20-30% COHB Lethal: Greater than 60% COHB Methemoglobin, Coox 0.5 <=1.5 % [facility] Source Coox Mixed Venous [facility] Blood 05/12/2023 1:14 AM EDT 05/12/2023 1:14 AM EDT Radha Hollins MD POINT OF CARE TEST ORDERABLES Performing Organization Address City/[facility] Co de Phone Number [facility] [place] [address] * (ABNORMAL) BLOOD GAS 2 ARTERIAL (05/12/2023 1:06 AM EDT) pH, Arterial 7.34(L) 7.35 - 7.45 [facility] PCO2, Arterial 30(L) 35 - 45 mmHg [facility] PO2, Arterial 81(L) 85 - 104 mmHg [facility] Bicarbonate, Arterial 15.7(L) 20.0 - 26.0 mmol/L [facility] Base Excess, Arterial -10.1(L) -3.0 - 3.0 mmol/L [facility] Hgb Blood Gas 11.0(L) 11.7 - 15.5 g/dL [facility] Oxyhemoglobin, Arterial 92.3(L) 94.0 - 97.0 % [facility] Carboxyhemoglob in, Arterial 0.2 % [facility] Comment: Nonsmokers: 0.5-1.5% COHB Smokers: Variable, but usually less than 10% Toxic: 20-30% COHB Lethal: Greater than 60% COHB Methemoglobin, Arterial 0.6 <=1.5 % [facility] Na Whole Blood 131(L) 135 - 145 mmol/L [facility] K Whole Blood 4.2 3.5 - 5.0 mmol/L [facility] Comment: Please note: Patients with WBC >100,000 may have falsely elevated Potassium levels. Contact the Clinical Chemistry Laboratory if there are any questions. ICa Whole Blood 1.13(L) 1.15 - 1.33 mmol/L [facility] Comment: Note: ??Total bilirubin higher than 20 mg/dL may lead to falsely low ionized calcium. CL Whole Blood 99 98 - 107 mmol/L [facility] Gluc Whole Bld 132 65 - 199 mg/dL [facility] Comment:Diabetes: >=200 mg/d L plus symptoms. Lactate WB 2.7(H) 0.5 - 2.2 mmol/L [facility] Flow Art 5.0 LPM [facility] Blood 05/12/2023 1:06 AM EDT 05/12/2023 1:06 AM EDT Radha Hollins MD POINT OF CARE TEST ORDERABLES [facility] [place] [address] * (ABNORMAL) Differential, Automated (05/12/2023 1:05 AM EDT) Pathologist [facility] Neutrophil % 83.3 % [facility] Neutrophil Absolute 7.49(H) 1.70 - 6.10 x10(3)/ L [facility] Lymph % 7.1 % [facility] Lymphocytes Abs 0.6(L) 0.9 - 3.2 x10(3)/ L [facility] Monocyte % 8.9 % [facility] Monocyte Abs 0.8 0.3 - 0.9 x10(3)/mc L [facility] Eos % 0.0 % [facility] Eosinophils Abs 0.0 0.0 - 0.4 x10(3)/[facility] Basophil % 0.1 % [facility] Baso Absolute 0.0 0.0 - 0.1 x10(3)/ L [facility] Immature Gran % 0.60 % [facility] Comment: Immature granulocytes(IG's)percentage and absolute count will include metamyelocytes, myelocytes, and promyelocytes. Blood smears from CBCs yielding IG's will be scanned manually for concordance. If this scan disagrees with the automated IG or if promyelocytes are noted, a manual differential will be performed. Immature Gran Absolute 0.05(H) 0.00 - 0.04 x10(3)/ L [facility] Blood 05/12/2023 1:05 AM EDT 05/12/2023 1:15 AM EDT Narrative Resulting Agency Comment Spec In Lab Gianni Fletcher MD HEMATOLOGY ORDERABLE S [facility] [place] [address] * (ABNORMAL) Hemogram (05/12/2023 1:05 AM EDT) Pathologist [facility] White Blood Cell 9.0 4.0 - 9.5 x10(3)/mc L [facility] Red Blood Cell 3.01(L) 4.00 - 5.21 x10(6)/[facility] LAB[facility]ATORY Hemoglobin 9.8(L) 11.7 - 15.5 g/dL [facility] Hematocrit 28.7(L) 35.7 - 45.8 % [facility] Mean Cell Volume 95.3(H) 82.6 - 94.4 fL [facility] Mean Cell Hemoglobin 32.6(H) 27.1 - 32.0 pg [facility] Mean Cell Hemoglobin Concentration 34.1 31.7 - 35.0 g/dL [facility] Platelet 186 145 - 357 x10(3)/mc L [facility] RDW Standard Deviation 43.7 37.0 - 46.0 fL [facility] RDW coefficient of variation 12.7 11.5 - 14.1 % [facility] Mean Platelet Volume 10.3 7.6 - 12.9 fL [facility] NRBC% auto 0.0 % [facility] NRBC Absolute 0.000 0.000 - 0.000 x10(3)/mc L [facility] Blood 05/12/2023 1:05 AM EDT 05/12/2023 1:15 AM EDT Narrative Resulting Agency Comment Spec In Lab Gianni Fletcher MD HEMATOLOGY ORDERABLE S [facility] [place] [address] * (ABNORMAL) Comprehensive metabolic panel (non-fasting) (05/12/2023 1:05 AM EDT) Glucose 141 65 - 199 mg/dL [facility] Comment:Diabetes: >=200 mg/d L plus symptoms Blood Urea Nitrogen 63(H) 8 - 18 mg/dL [facility] Creatinine 1.86(H) 0.70 - 1.20 mg/dL [facility] Sodium 131(L) 135 - 145 mmol/L [facility] Potassium 4.4 3.5 - 5.0 mmol/L [facility] Comment: Please note: ??Patients with WBC >100,000 may have falsely elevated Potassium levels. ??For accurate Potassium quantification in these patients send serum separator tube (gold top) for subsequent determinations. ??Contact the Clinical Chemistry Laboratory if there are any questions. Chloride 96(L) 98 - 107 mmol/L [facility] Carbon Dioxide 14(L) 22 - 31 mmol/L [facility] Anion Gap 21(H) 5 - 15 mmol/L [facility] Calcium 9.0 8.5 - 10.5 mg/dL [facility] Protein, Total 6.6 6.1 - 8.0 g/dL [facility] Albumin 3.9 3.2 - 5.2 g/dL [facility] Aspartate Aminotransferase 1,227(H) 0 - 30 unit/L [facility] Alanine Aminotransferase 1,097(H) 0 - 30 unit/L [facility] Alkaline Phosphatase 108(H) 35 - 105 unit/L [facility] Bilirubin, Total 1.0 0.2 - 1.3 mg/dL [facility] Est Glomerular Filtration Rate 29(L) >=60 mL/min/1. 73 m?? [facility] Comment: This patient's estimated [...] Lab Radha Hollins MD CHEMISTRY ORDERABL ES [facility] [place] [address] * XR Chest One View (05/12/2023 1:00 [...] who have questions please contact the health laboratory animal caretaker that requested your imaging first. ? Electronically signed by: Will Rowe MD, [facility] ([phone]), at 05/12/2023 3:16 AM Narrative 05/12/2023 3:16 [...] patients who have questions please contactthe health laboratory animal caretaker that requested your imaging first. Radha Hollins MD IMG DX ORDERABLES * (ABNORMAL) Coox2 (05/12/2023 12:30 AM EDT) pO2, Coox 22 mmHg [facility] Hgb Blood Gas 10.9(L) 11.7 - 15.5 g/dL [facility] Oxyhemoglobin, Coox 25.1 % [facility] Carboxyhemoglo bin, Coox 0.3 % [facility] Comment: Nonsmokers: 0.5-1.5% COHB Smokers: Variable, but usually less than 10% Toxic: 20-30% COHB Lethal: Greater than 60% COHB Methemoglobin, Coox 1.4 <=1.5 % [facility] Source Coox Mixed Venous [facility] Blood 05/12/2023 12:3 0 AM EDT 05/12/2023 12:30 AM EDT Radha Hollins MD POINT OF CARE TEST [place] [address] * XR Chest One View (05/11/2023 11:45 [...] who have questions please contact the health laboratory animal caretaker that requested your imaging first. ? Electronically signed by: Will Rowe MD, [facility] ([phone]), at 05/11/2023 11:57 PM Narrative 05/11/2023 11:57 [...] patients who have questions please contactthe health laboratory animal caretaker that requested your imaging first. Electronically signed by: Will Rowe MD, [facility]([phone]), at 05/11/2023 11:57 PM Radha Hollins MD IMG DX ORDERABLES * (ABNORMAL) Lactate, whole blood, send to lab ([facility] [place] (05/11/2023 7:40 PM EDT) Pathologist [facility] Lactate WB 4.8(Critic al) 0.5 - 2.2 mmol/L [facility] Comment:Called by: [facility], Read back by: Magdalena Baires, Date/Time:05/11/23 19:54. Blood 05/11/2023 7:40 PM EDT 05/11/2023 7:49 PM EDT Narrative Resulting Agency Comment Spec In Lab Radha Hollins MD CHEMISTRY ORDERABL ES [facility] [place] [address] * Urine culture (05/11/2023 7:22 PM EDT) Pathologist [facility] Urine Culture 50,000-99,000 cfu/ml Normal mucosal herman Susceptibilit y testing not routinely performed for Coagulase Negative Staphylococcu s species and other Gram Positive organisms from urine. [facility] Clean Catch Urine 05/11/2023 7:22 PM EDT 05/11/2023 8:50 PM EDT Narrative Resulting Agency Comment Spec In Lab Brody Kaplan RETREADER MICROBIOLOGY - GENE RAL ORDERABLES Performing Organization Address [facility]/ZIP Co de Phone Number [facility] [place] [address] * (ABNORMAL) Urinalysis Microscopic Exam (05/11/2023 7:22 PM EDT) RBC, Urine 2 0 - 4 /HPF [facility] WBC, Urine >100(H) 0 - 5 /HPF [facility] Bacteria, Urine Occasional (A) None /HPF [facility] Squamous Epithelial Cells Raw Data, Urine 5(H) <=4 /HPF [facility] Hyaline Casts, Urine 3(H) 0 - 2 /LPF [facility] Clean Catch Urine 05/11/2023 7:22 PM EDT 05/11/2023 7:31 PM EDT Narrative Resulting Agency Comment Spec In Lab Brody Kaplan RETREADER URINE ORDERABLES Performing Organization Address [facility] Co de Phone Number [facility] [place] [address] * (ABNORMAL) Urinalysis with reflex Culture (05/11/2023 7:22 PM EDT) Glucose, Urine Dipstick Negative Negative mg/dL [facility] Protein, Urine Dipstick Trace(A) Negative mg/dL [facility] Bilirubin, Urine Dipstick Negative Negative mg/dL [facility] Comment: Clinical correlation required for positive Urine Bilirubin results as false positive may occur with some drugs and drug related products. If a false positive is suspected a serum total bilirubin should be considered if clinically indicated. Urobilinogen, Urine Dipstick Normal Normal mg/dL [facility] pH, Urn (dipstick) 5.0 5.0 - 8.0 [facility] Blood, Urine Dipstick Trace(A) Negative mg/dL [facility] Ketone, Urine Dipstick Negative Negative mg/dL [facility] Nitrite, Urine Dipstick Negative Negative [facility] Leukocytes, Urine Dipstick Moderate(A) Negative mcL [facility] Appearance, Urine Dipstick Cloudy(A) Clear [facility] Specific [place] Urine Automated >=1.030(A) 1.005 - 1.030 [facility] Color, Urine Dipstick Yellow Yellow [facility] Reflex to Culture Yes [facility] Clean Catch Urine 05/11/2023 7:22 PM EDT 05/11/2023 7:31 PM EDT Narrative Resulting Agency Comment Spec In Lab Brody Suyapa Eusebio OSBORN URINE ORDERABLES Performing Organization Address City/[facility]/ZIP Co de Phone Number [facility] [place] [address] * (ABNORMAL) pro-Brain Natriuretic Peptide (05/11/2023 7:11 PM EDT) NT-proBNP >35,000(H) <=124 pg/mL [facility] Blood 05/11/2023 7:11 PM EDT 05/11/2023 7:26 PM EDT Narrative Resulting Agency Comment Spec In Lab Radha Hollins MD CHEMISTRY ORDERABL ES Performing Organization Address [facility] Co de Phone Number [facility] [place] [address] * (ABNORMAL) Lactate, whole blood, send to lab ([facility] [place] [place] (05/11/2023 2:47 PM EDT) Lactate WB 2.9(H) 0.5 - 2.2 mmol/L [facility] Blood 05/11/2023 2:47 PM EDT 05/11/2023 2:53 PM EDT Narrative Resulting Agency Comment Spec In Lab Juan Luis Gonzalez MD CHEMISTRY ORDERABLES Performing Organization Address [facility] Co de Phone Number [facility] [place] [address] * (ABNORMAL) CT Angiogram Abdomen & Pelvis [...] who have questions please contact the health laboratory animal caretaker that requested your imaging first. ? Electronically signed by: Eileen Gomes MD, [facility] ([phone]), at 05/11/2023 2:42 PM Narrative 05/11/2023 2:42 [...] who have questions please contact the health laboratory animal caretaker that requested your imaging first. ? Electronically signed by: Cullen Narayanan MD, [facility] ([phone]), at 05/11/2023 4:37 PM Narrative 05/11/2023 4:37 [...] 610 mm2 Circumference: 88 mm Calcification: Mild Etiiwux-br-blvjlmpw height: Left: 6.2 mm Right: 5.8 mm THORACIC AORTA Description: Normal course and caliber. ??Mild diffuse atherosclerotic changes. No acute aortopathy noted. Merchandise Manager dimensions: Aortic root: 27.6 mm Max [...] 610 mm2 Circumference: 88 mm Calcification: Mild Lxqvqyl-no-jcdqgmam height: Left: 6.2 mm Right: 5.8 mm THORACIC AORTA Description: Normal course and caliber. Mild diffuse atheroscleroticchanges. No acute aortopathy noted. Merchandise Manager dimensions: Aortic root: 27.6 mm Max [...] patients who have questions please contactthe health laboratory animal caretaker that requested your imaging first. Electronically signed by: Cullen Narayanan MD, [facility]([phone]), at 05/11/2023 4:37 PM Antelmo Sharma MD IMG CT ORDERABLES * (ABNORMAL) Lactate, whole blood, send to lab ([facility] [place] [place] (05/11/2023 9:29 AM EDT) Lactate WB 3.1(H) 0.5 - 2.2 mmol/L [facility] Blood 05/11/2023 9:29 AM EDT 05/11/2023 9:38 AM EDT Narrative Resulting Agency Comment Spec In Lab Juan Luis Gonzalez MD CHEMISTRY ORDERABLES Performing Organization Address City/[facility]/ZIP Co de Phone Number [facility] [place] [address] * (ABNORMAL) Differential, Automated (05/11/2023 4:42 AM EDT) Neutrophil % 78.1 % [facility] Neutrophil Absolute 5.46 1.70 - 6.10 x10(3)/mc L [facility] Lymph % 10.6 % [facility] Lymphocytes Abs 0.7(L) 0.9 - 3.2 x10(3)/mc L [facility] Monocyte % 9.6 % [facility] Monocyte Abs 0.7 0.3 - 0.9 x10(3)/mc L [facility] Eos % 0.0 % [facility] Eosinophils Abs 0.0 0.0 - 0.4 x10(3)/mc L [facility] Basophil % 0.4 % [facility] Baso Absolute 0.0 0.0 - 0.1 x10(3)/mc L [facility] Immature Gran % 1.30 % [facility] Comment: Immature granulocytes(IG's)percentage and absolute count will include metamyelocytes, myelocytes, and promyelocytes. Blood smears from CBCs yielding IG's will be scanned manually for concordance. If this scan disagrees with the automated IG or if promyelocytes are noted, a manual differential will be performed. Immature Gran Absolute 0.09(H) 0.00 - 0.04 x10(3)/mc L [facility] Blood 05/11/2023 4:42 AM EDT 05/11/2023 4:49 AM EDT Narrative Resulting Agency Comment Spec In Lab Klaudia Reid MD HEMATOLOGY OR DERABLES Performing Organization Address City/[facility]/ZIP Co de Phone Number [facility] [place] [address] * (ABNORMAL) Hemogram (05/11/2023 4:42 AM EDT) White Blood Cell 7.0 4.0 - 9.5 x10(3)/mc L [facility] Red Blood Cell 3.44(L) 4.00 - 5.21 x10(6)/mc L [facility] Hemoglobin 11.1(L) 11.7 - 15.5 g/dL [facility] Hematocrit 32.7(L) 35.7 - 45.8 % [facility] Mean Cell Volume 95.1(H) 82.6 - 94.4 fL [facility] Mean Cell Hemoglobin 32.3(H) 27.1 - 32.0 pg [facility] Mean Cell Hemoglobin Concentration 33.9 31.7 - 35.0 g/dL [facility] Platelet 165 145 - 357 x10(3)/mc L [facility] RDW Standard Deviation 43.1 37.0 - 46.0 fL [facility] RDW coefficient of variation 12.7 11.5 - 14.1 % [facility] Mean Platelet Volume 10.1 7.6 - 12.9 fL [facility] NRBC% auto 0.0 % [facility] NRBC Absolute 0.000 0.000 - 0.000 x10(3)/ L [facility] Blood 05/11/2023 4:42 AM EDT 05/11/2023 4:49 AM EDT Narrative Resulting Agency Comment Spec In Lab Klaudia Reid MD HEMATOLOGY OR DERABLES Performing Organization Address City/State/[facility] Co de Phone Number [facility] [place] [address] * Heparin (unfractionated) Level (05/11/2023 4:42 AM EDT) UF Heparin 0.46 IU/mL [facility] Comment: Heparin (anti-Xa) [...] Lab Radha Hollins MD HEMATOLOGY ORDERAB LES [facility] [place] [address] * (ABNORMAL) Comprehensive metabolic panel (non-fasting) (05/11/2023 4:42 AM EDT) Glucose 143 65 - 199 mg/dL [facility] Comment:Diabetes: >=200 mg/d L plus symptoms Blood Urea Nitrogen 42(H) 8 - 18 mg/dL [facility] Creatinine 1.24(H) 0.70 - 1.20 mg/dL [facility] Sodium 134(L) 135 - 145 mmol/L [facility] Potassium 4.6 3.5 - 5.0 mmol/L [facility] Comment: Please note: ??Patients with WBC >100,000 may have falsely elevated Potassium levels. ??For accurate Potassium quantification in these patients send serum separator tube (gold top) for subsequent determinations. ??Contact the Clinical Chemistry Laboratory if there are any questions. Chloride 99 98 - 107 mmol/L [facility] Carbon Dioxide 14(L) 22 - 31 mmol/L [facility] Anion Gap 21(H) 5 - 15 mmol/L [facility] Calcium 9.6 8.5 - 10.5 mg/dL [facility] Protein, Total 7.2 6.1 - 8.0 g/dL [facility] Albumin 3.7 3.2 - 5.2 g/dL [facility] Aspartate Aminotransferase 144(H) 0 - 30 unit/L [facility] Comment:result rechecked-ssc Alanine Aminotransferase 130(H) 0 - 30 unit/L [facility] Comment:result rechecked-ssc Alkaline Phosphatase 72 35 - 105 unit/L [facility] Bilirubin, Total 0.8 0.2 - 1.3 mg/dL [facility] Est Glomerular Filtration Rate 48(L) >=60 mL/min/1. 73 m?? [facility] Comment: This patient's estimated [...] Lab Radha Hollins MD CHEMISTRY ORDERABL ES [facility] [place] [id number] * EKG 12 Lead (05/10/2023 1:16 PM [...] for LVH, may be normal variant ( [place] product ) Septal infarct , age undetermined ST & T wave abnormality, consider lateral ischemia Abnormal ECG When compared with ECG of 10-MAY-2023 07:59, Fusion complexes are no longer Present Premature ventricular complexes are no longer Present ST no longer depressed in Anterior leads Confirmed by MD Villareal Danette ([id number]) on 05/10/2023 8:47:46 PM MUSE SYSTEM 05/10/2023 1:16 PM EDT 05/10/2023 8:47 PM EDT Juan Luis Gonzalez MD ECG ORDERABLES MUSE SYSTEM * Lactate, whole blood, send to lab ([facility] [place]) (05/10/2023 11:52 AM EDT) Lactate WB 1.8 0.5 - 2.2 mmol/L [facility] Blood 05/10/2023 11:5 2 AM EDT 05/10/2023 12:13 PM EDT Narrative Resulting Agency Comment Spec In Lab Juan Luis Gonzalez MD CHEMISTRY ORDERABLES Performing Organization Address City/[facility]/ZIP Co de Phone Number [facility] [place] [address] * XR Chest One View (05/10/2023 11:16 [...] who have questions please contact the health laboratory animal caretaker that requested your imaging first. ? Narrative [...] patients who have questions please contactthe health laboratory animal caretaker that requested your imaging first. Electronically signed by: ALIX RUVALCABA MD, [facility]([phone]), at 05/10/2023 1:25 PM Juan Luis Gonzalez [...] interpretation Confirmed by fellow MD Anitha, Carissa ([id number]) on 05/11/2023 6:19:54 AM Confirmed by MD Tram, Chel ([id number]) on 05/11/2023 3:18:56 PM MUSE SYSTEM 05/10/2023 7:59 AM EDT 05/11/2023 3:18 PM EDT Radha Hollins MD ECG ORDERABLES MUSE SYSTEM * (ABNORMAL) Differential, Automated (05/10/2023 2:28 AM EDT) Neutrophil % 77.1 % [facility] Neutrophil Absolute 4.01 1.70 - 6.10 x10(3)/mc L [facility] Lymph % 14.0 % [facility] Lymphocytes Abs 0.7(L) 0.9 - 3.2 x10(3)/mc L [facility] Monocyte % 7.7 % [facility] Monocyte Abs 0.4 0.3 - 0.9 x10(3)/mc L [facility] Eos % 0.4 % [facility] Eosinophils Abs 0.0 0.0 - 0.4 x10(3)/mc L [facility] Basophil % 0.4 % [facility] Baso Absolute 0.0 0.0 - 0.1 x10(3)/mc L [facility] Immature Gran % 0.40 % [facility] Comment: Immature granulocytes(IG's)percentage and absolute count will include metamyelocytes, myelocytes, and promyelocytes. Blood smears from CBCs yielding IG's will be scanned manually for concordance. If this scan disagrees with the automated IG or if promyelocytes are noted, a manual differential will be performed. Immature Gran Absolute 0.02 0.00 - 0.04 x10(3)/mc L [facility] Blood 05/10/2023 2:28 AM EDT 05/10/2023 2:57 AM EDT Narrative Resulting Agency Comment Spec In Lab Klaudia Reid MD HEMATOLOGY OR DERABLES [facility] [place] [address] * (ABNORMAL) Hemogram (05/10/2023 2:28 AM EDT) White Blood Cell 5.2 4.0 - 9.5 x10(3)/mc L [facility] Red Blood Cell 3.11(L) 4.00 - 5.21 x10(6)/mc L [facility] Hemoglobin 10.2(L) 11.7 - 15.5 g/dL [facility] Hematocrit 30.2(L) 35.7 - 45.8 % [facility] Mean Cell Volume 97.1(H) 82.6 - 94.4 fL [facility] Mean Cell Hemoglobin 32.8(H) 27.1 - 32.0 pg [facility] Mean Cell Hemoglobin Concentration 33.8 31.7 - 35.0 g/dL [facility] Platelet 151 145 - 357 x10(3)/mc L [facility] RDW Standard Deviation 44.9 37.0 - 46.0 fL [facility] RDW coefficient of variation 12.8 11.5 - 14.1 % [facility] Mean Platelet Volume 9.8 7.6 - 12.9 fL [facility] NRBC% auto 0.0 % [facility] NRBC Absolute 0.000 0.000 - 0.000 x10(3)/ L [facility] Blood 05/10/2023 2:28 AM EDT 05/10/2023 2:57 AM EDT Narrative Resulting Agency Comment Spec In Lab Klaudia Reid MD HEMATOLOGY OR DERABLES Performing Organization Address City/[facility]/ZIP Co de Phone Number [facility] [place] [address] * (ABNORMAL) Comprehensive metabolic panel (non-fasting) (05/10/2023 2:28 AM EDT) Glucose 100 65 - 199 mg/dL [facility] Comment:Diabetes: >=200 mg/d L plus symptoms Blood Urea Nitrogen 30(H) 8 - 18 mg/dL [facility] Creatinine 0.90 0.70 - 1.20 mg/dL [facility] Sodium 134(L) 135 - 145 mmol/L [facility] Potassium 4.1 3.5 - 5.0 mmol/L [facility] Comment: Please note: ??Patients with WBC >100,000 may have falsely elevated Potassium levels. ??For accurate Potassium quantification in these patients send serum separator tube (gold top) for subsequent determinations. ??Contact the Clinical Chemistry Laboratory if there are any questions. Chloride 102 98 - 107 mmol/L [facility] Carbon Dioxide 20(L) 22 - 31 mmol/L [facility] Anion Gap 12 5 - 15 mmol/L [facility] Calcium 9.3 8.5 - 10.5 mg/dL [facility] Protein, Total 6.4 6.1 - 8.0 g/dL [facility] Albumin 3.7 3.2 - 5.2 g/dL [facility] Aspartate Aminotransferase 24 0 - 30 unit/L [facility] Alanine Aminotransferase 14 0 - 30 unit/L [facility] Alkaline Phosphatase 70 35 - 105 unit/L [facility] Bilirubin, Total 0.5 0.2 - 1.3 mg/dL [facility] Est Glomerular Filtration Rate 70 >=60 mL/min/1. 73 m?? [facility] Comment: This patient's estimated [...] Lab Radha Hollins [place] [address] * Heparin (unfractionated) Level (05/10/2023 2:28 AM EDT) Pathologist [facility] UF Heparin 0.37 IU/mL [facility] Comment: Heparin (anti-Xa) levels should be [...] MD HEMATOLOGY ORDERAB LES Performing Organization Address [facility]/State/[facility] [place] [address] * (ABNORMAL) Differential, Automated (05/09/2023 4:00 AM EDT) [facility] Neutrophil % 81.7 % [facility] Neutrophil Absolute 5.26 1.70 - 6.10 x10(3)/mc L [facility] Lymph % 10.7 % [facility] Lymphocytes Abs 0.7(L) 0.9 - 3.2 x10(3)/mc L [facility] Monocyte % 6.5 % [facility] Monocyte Abs 0.4 0.3 - 0.9 x10(3)/mc L [facility] Eos % 0.5 % [facility] Eosinophils Abs 0.0 0.0 - 0.4 x10(3)/mc L [facility] Basophil % 0.3 % [facility] Baso Absolute 0.0 0.0 - 0.1 x10(3)/mc L [facility] Immature Gran % 0.30 % [facility] Comment: Immature granulocytes(IG's)percentage and absolute count will include metamyelocytes, myelocytes, and promyelocytes. Blood smears from CBCs yielding IG's will be scanned manually for concordance. If this scan disagrees with the automated IG or if promyelocytes are noted, a manual differential will be performed. Immature Gran Absolute 0.02 0.00 - 0.04 x10(3)/mc L [facility] Blood 05/09/2023 4:00 AM EDT 05/09/2023 4:19 AM EDT Narrative Resulting Agency Comment Spec In Lab Klaudia Reid MD HEMATOLOGY OR DERABLES Performing Organization Address City/State/[facility] Co de Phone Number [facility] [place] [address] * (ABNORMAL) Hemogram (05/09/2023 4:00 AM EDT) White Blood Cell 6.4 4.0 - 9.5 x10(3)/mc L [facility] Red Blood Cell 3.15(L) 4.00 - 5.21 x10(6)/ L [facility] Hemoglobin 10.2(L) 11.7 - 15.5 g/dL [facility] Hematocrit 30.3(L) 35.7 - 45.8 % [facility] Mean Cell Volume 96.2(H) 82.6 - 94.4 fL [facility] Mean Cell Hemoglobin 32.4(H) 27.1 - 32.0 pg [facility] Mean Cell Hemoglobin Concentration 33.7 31.7 - 35.0 g/dL [facility] Platelet 151 145 - 357 x10(3)/mc L [facility] RDW Standard Deviation 44.7 37.0 - 46.0 fL [facility] RDW coefficient of variation 12.8 11.5 - 14.1 % [facility] Mean Platelet Volume 9.4 7.6 - 12.9 fL [facility] NRBC% auto 0.0 % [facility] NRBC Absolute 0.000 0.000 - 0.000 x10(3)/mc L [facility] Blood 05/09/2023 4:00 AM EDT 05/09/2023 4:19 AM EDT Narrative Resulting Agency Comment Spec In Lab Klaudia Reid MD HEMATOLOGY OR DERABLES Performing Organization Address [facility] Co de Phone Number [facility] [place] [address] * Heparin (unfractionated) Level (05/09/2023 4:00 AM EDT) UF Heparin 0.47 IU/mL [facility] Comment: Heparin (anti-Xa) [...] MD HEMATOLOGY ORDERAB LES Performing Organization Address [facility] Co de Phone Number [facility] [place] [address] * (ABNORMAL) Comprehensive metabolic panel (non-fasting) (05/09/2023 4:00 AM EDT) Glucose 108 65 - 199 mg/dL [facility] Comment:Diabetes: >=200 mg/d L plus symptoms Blood Urea Nitrogen 31(H) 8 - 18 mg/dL [facility] Creatinine 1.03 0.70 - 1.20 mg/dL [facility] Sodium 137 135 - 145 mmol/L [facility] Potassium 4.4 3.5 - 5.0 mmol/L [facility] Comment: Please note: ??Patients with WBC >100,000 may have falsely elevated Potassium levels. ??For accurate Potassium quantification in these patients send serum separator tube (gold top) for subsequent determinations. ??Contact the Clinical Chemistry Laboratory if there are any questions. Chloride 102 98 - 107 mmol/L [facility] Carbon Dioxide 20(L) 22 - 31 mmol/L [facility] Anion Gap 15 5 - 15 mmol/L [facility] Calcium 9.3 8.5 - 10.5 mg/dL [facility] Protein, Total 6.6 6.1 - 8.0 g/dL [facility] Albumin 3.8 3.2 - 5.2 g/dL [facility] Aspartate Aminotransferase 32(H) 0 - 30 unit/L [facility] Alanine Aminotransferase 18 0 - 30 unit/L [facility] Alkaline Phosphatase 78 35 - 105 unit/L [facility] Bilirubin, Total 0.5 0.2 - 1.3 mg/dL [facility] Est Glomerular Filtration Rate 60 >=60 mL/min/1. 73 m?? [facility] Comment: This patient's estimated [...] Lab Radha Hollins MD CHEMISTRY ORDERABL ES [facility] [place] [address] * (ABNORMAL) pro-Brain Natriuretic Peptide (05/08/2023 4:00 PM EDT) NT-proBNP 25,503(H) <=124 pg/mL [facility] Blood Venous Draw / Unknown 05/08/2023 4:00 PM EDT 05/08/2023 4:25 PM EDT Narrative Resulting Agency Comment Spec In Lab Juan Luis Gonzalez MD CHEMISTRY ORDERABLES Performing Organization Address [facility] Co de Phone Number [facility] [place] [address] * Magnesium (05/08/2023 4:00 PM EDT) Pathologist [facility] Magnesium 0.82 0.69 - 1.07 mmol/L [facility] Blood 05/08/2023 4:00 PM EDT 05/08/2023 4:06 PM EDT Narrative Resulting Agency Comment Spec In Lab Enrique Chua MD CHEMISTRY ORDERABLES Performing Organization Address [facility] Co de Phone Number [facility] [place] [address] * Potassium (05/08/2023 4:00 PM EDT) Pathologist [facility] Potassium 3.9 3.5 - 5.0 mmol/L [facility] Comment: Please note: ??Patients [...] MD CHEMISTRY ORDERABL ES Performing Organization Address [facility] Co de Phone Number [facility] [place] [address] * Heparin (unfractionated) Level (05/08/2023 4:00 PM EDT) Pathologist [facility] UF Heparin 0.43 IU/mL [facility] Comment: Heparin (anti-Xa) levels should be [...] MD HEMATOLOGY ORDERAB LES Performing Organization Address City/[facility] Co de Phone Number [facility] [place] [address] * EKG 12 Lead (05/08/2023 3:51 PM EDT) [facility] Ventricular rate 98 BPM MUSE SYSTEM Atrial [...] leads Confirmed by MD Harshil, Enrique Bell ([id number]) on 05/10/2023 8:11:46 AM MUSE SYSTEM 05/08/2023 3:51 PM EDT 05/10/2023 8:11 AM EDT Radha Hollins MD ECG ORDERABLES Performing Organization Address City/[facility]/ZIP Co de Phone Number MUSE SYSTEM * (ABNORMAL) Differential, Automated (05/08/2023 11:38 AM EDT) Neutrophil % 71.3 % [facility] Neutrophil Absolute 2.91 1.70 - 6.10 x10(3)/[facility] Lymph % 19.1 % [facility] Lymphocytes Abs 0.8(L) 0.9 - 3.2 x10(3)/[facility] Monocyte % 9.0 % [facility] Monocyte Abs 0.4 0.3 - 0.9 x10(3)/[facility] Eos % 0.2 % [facility] Eosinophils Abs 0.0 0.0 - 0.4 x10(3)/[facility] Basophil % 0.2 % [facility] Baso Absolute 0.0 0.0 - 0.1 x10(3)/[facility] Immature Gran % 0.20 % [facility] Comment: Immature granulocytes(IG's)percentage and absolute count will include metamyelocytes, myelocytes, and promyelocytes. Blood smears from CBCs yielding IG's will be scanned manually for concordance. If this scan disagrees with the automated IG or if promyelocytes are noted, a manual differential will be performed. Immature Gran Absolute 0.01 0.00 - 0.04 x10(3)/[facility] Blood 05/08/2023 11:3 8 AM EDT 05/08/2023 11:44 AM EDT Narrative Resulting Agency Comment Spec In Lab Lincoln Sal MD HEMATOLOGY ORDERA BLES Performing Organization Address City/State/[facility] Co de Phone Number [facility] [place] [address] * (ABNORMAL) Hemogram (05/08/2023 11:38 AM EDT) Pathologist [facility] White Blood Cell 4.1 4.0 - 9.5 x10(3)/[facility] Red Blood Cell 3.05(L) 4.00 - 5.21 x10(6)/[facility] Hemoglobin 10.2(L) 11.7 - 15.5 g/dL [facility] Hematocrit 29.6(L) 35.7 - 45.8 % [facility] Mean Cell Volume 97.0(H) 82.6 - 94.4 fL [facility] Mean Cell Hemoglobin 33.4(H) 27.1 - 32.0 pg [facility] Mean Cell Hemoglobin Concentration 34.5 31.7 - 35.0 g/dL [facility] Platelet 136(L) 145 - 357 x10(3)/mc L [facility] RDW Standard Deviation 44.3 37.0 - 46.0 fL [facility] RDW coefficient of variation 12.6 11.5 - 14.1 % [facility] Mean Platelet Volume 9.4 7.6 - 12.9 fL [facility] NRBC% auto 0.0 % [facility] NRBC Absolute 0.000 0.000 - 0.000 x10(3)/mc L [facility] Blood 05/08/2023 11:3 8 AM EDT 05/08/2023 11:44 AM EDT Narrative Resulting Agency Comment Spec In Lab Lincoln Sal MD HEMATOLOGY ORDERA BLES Performing Organization Address City/[facility] Co de Phone Number [facility] [place] [address] * TSH (05/08/2023 11:38 AM EDT) Pathologist [facility] Thyroid Stimulating Hormone 1.27 0.27 - 4.20 mcIU/mL [facility] Comment: Reference Interval (mcIU/mL): Females: ??First Trimester: 0.23-3.88 ??Second Trimester: 0.22-3.90 ??Third Trimester: 0.44-4.66 Blood 05/08/2023 11:3 8 AM EDT 05/08/2023 11:44 AM EDT Narrative Resulting Agency Comment Spec In Lab Enrique Chua MD CHEMISTRY ORDERABLES Performing Organization Address City/[facility]/ZIP Co de Phone Number [facility] [place] [address] * (ABNORMAL) Phosphorus (05/08/2023 11:38 AM EDT) Phosphorus 4.7(H) 2.5 - 4.5 mg/dL [facility] Blood 05/08/2023 11:3 8 AM EDT 05/08/2023 11:44 AM EDT Narrative Resulting Agency Comment Spec In Lab Enrique Chua MD CHEMISTRY ORDERABLES Performing Organization Address [facility] Co de Phone Number [facility] [place] [address] * Magnesium (05/08/2023 11:38 AM EDT) Magnesium 0.76 0.69 - 1.07 mmol/L [facility] Blood 05/08/2023 11:3 8 AM EDT 05/08/2023 11:44 AM EDT Narrative Resulting Agency Comment Spec In Lab Enrique Chua MD CHEMISTRY ORDERABLES Performing Organization Address [facility] de Phone Number [facility] [place] [address] * (ABNORMAL) Basic Metabolic Panel (non-fasting) (05/08/2023 11:38 AM EDT) Glucose 97 65 - 199 mg/dL [facility] Comment:Diabetes: >=200 mg/d L plus symptoms Blood Urea Nitrogen 27(H) 8 - 18 mg/dL [facility] Creatinine 1.02 0.70 - 1.20 mg/dL [facility] Sodium 139 135 - 145 mmol/L [facility] Potassium 4.2 3.5 - 5.0 mmol/L [facility] Comment: Please note: ??Patients with WBC >100,000 may have falsely elevated Potassium levels. ??For accurate Potassium quantification in these patients send serum separator tube (gold top) for subsequent determinations. ??Contact the Clinical Chemistry Laboratory if there are any questions. Chloride 105 98 - 107 mmol/L [facility] Carbon Dioxide 20(L) 22 - 31 mmol/L [facility] Anion Gap 14 5 - 15 mmol/L [facility] Calcium 9.4 8.5 - 10.5 mg/dL [facility] Est Glomerular Filtration Rate 60 >=60 mL/min/1. 73 m?? [facility] Comment: This patient's estimated [...] In Lab Enrique Chua MD CHEMISTRY ORDERABLES [facility] [place] [address] * ECHO COMPLETE (05/08/2023 11:02 AM EDT) EF 25 [employer] Anatomical Region Laterality Modality Cardiac Other 05/08/2023 10:0 3 AM EDT Narrative 05/08/2023 11:51 AM EDT ? Echocardiogram Report Name: KIRSTIE PURNIMA M ?Study Date: 05/08/2023 10:03 AMBP: 92/64 mmHg ? Patient Location: [facility]^CV29^A : 1955 ? Height: 155 cm ? Account: [id number] Age: 67 yrs ? Weight: 78 kg Gender: Female ?BSA: 1.8 m2 Ordering Physician: ENRIQUE CHUA Referring Physician: MARIO ALBERTO CHIN Performed By: CHUCKIE Canchola Reason For Study: SAVR Stenosis Exam Location: [facility]. Interpretation Summary -Left ventricle is [...] worsening stenosis. Mitral regurgitation is similar. Procedure Complete-[id number]. Satisfactory quality. There is normal sinus rhythm. [...] 0:03 AMBP: 92/64 mmHg Patient Location:[facility]^CV29^A : 1955 Height: 155 cm Account: [id number] Age: 67 yrs Weight: 78 kg Gender: Female BSA: 1.8 m2 Ordering Physician: ENRIQUE CHUA Referring Physician: MARIO ALBERTO CHIN Performed By: CHUCKIE Canchola Reason For Study: SAVR Stenosis Exam Location: [facility]. Interpretation Summary -Left ventricle is [...] suggestsworsening stenosis. Mitral regurgitation is similar. Procedure Complete-01132. Satisfactory quality. There is normal sinus rhythm. 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 Mild coronary artery disease by [facility] 11/09/2022 Mixed connective tissue disease Other [...] fraction Mild coronary artery disease by [facility] 11/09/2022 Stenosis of prosthetic aortic valve [...] Gallego, VALDO) 08 (Given - Provider: Kia Gallego RN) lidocaine [...] Minutes 1758 (New Bag - Provider: Gabino Cahloun RN)1958 (Stopped - Provider: Favian Mckeon RN) [...] VALDO) 0832 (Given - Provider: Kia Gallego, VALDO)2012 [...] Patient/family refused)0930 (Not Given - Provider: Kia Gallego, VALDO - Reason: See comment) spironolactone (Aldactone) tablet 12.5 mg (CANCELED) 12.5 mg, Oral, DAILY, First dose on 05/22/23 at 0900, Until Discontinued, DO NOT SPLIT, CRUSH OR OPEN, Routine 08 (Given - Provider: Kia Gallego, RN) ticagrelor [...] RN)2053 (Given - Provider: Favian Mckeon, VALDO) 831 (Given - Provider: Kia Gallego, VALDO)2012 (Given - Provider: Favian Mckeon RN) 826 (Given - Provider: Kia Gallego, VALDO) PRN Medication Order 05/20/2023 05/21/2023 05/22/2023 acetaminophen [...] Routine 1757 (Given - Provider: Gabino Calhoun RN)234 (Given - Provider: Petros Valiente RN) bisacodyL [...] Routine documented in this encounter Care Teams Contact Lens Edge Buffer Relationship Specialty Start Date End Date Magdalena Acosta MD [address] [place] [address] PCP - General Family Medicine 02/05/23 documented as of this encounter
--- OUTSIDE RECORDS SUMMARY | 2024-05-16 15:38 | XMS_ITS | Encounter Summary ---
Author Organization [facility]ly [facility] [place] [address] Care Team Providers Care Diesel Engine Specialist Name Role Phone Deborah Quiroga APRN Primary Care Provider [phone] Encounter Details Date Type Department Care Team (Late st Contact Info) Description 11/09/2022 11:30 AM EDT - 11/09/2022 12:30 PM EDT [place] [address] Nitesh Escobedo MD [facility] [place] [address] CARDIAC CATHETERIZATION Social History Tobacco Use Types [...] Marek Bonilla MD [facility] New Medications to be Picked Up None For questions regarding this document or issues relating to this hospitalization on the Medical Service, please contact your inpatient physician through the [facility] . Issues afterhours and on weekends will [...] by mouth once as needed. Before dental meloxicam (Mobic) 15 mg tablet Take 15 [...] MD - 11/09/2022 11:20 AM EDT . [facility] Interventional Cardiology Adult Pre-Procedure H&P Update: Cardiac Catheterization Purnima Thacker [id number] 1955 Chief Complaint: BONILLA HPI: Purnima Thacker [...] Marrero MD Interventional Cardiology 11/09/22 11:43 AM [facility] Pager: [phone] documented in this encounter Plan of Treatment Upcoming Encounters Date Type Department Care Team (Late st Contact Info) Description 05/29/2024 2:00 PM EDT Hospital Encounter Outpatient [place] [address] Markel Borjas MD [facility] DR HEMATOLOGY [place] [address] 05/29/2024 2:00 PM EDT - 05/29/2024 2:43 PM EDT Surgery Outpatient [place] [phone] Markel Borjas MD [facility] DR HEMATOLOGY [place] [address] (OSC MSURG) BONE MARROW BIOPSY AND ASPIRATION; DIAGNOSTIC (WRVU 1.44) 06/23/2024 2:00 PM EST Office Visit [place] [phone] Markel Borjas MD [facility] DR HEMATOLOGY [place] [address] 03/01/2025 4:15 PM EDT Office Visit Dermatology at [place] [address] [place] [address] Marek Bonilla MD [address] [place]ERMATOLOGY [place], [place] [id number] Scheduled Procedures Name Priority Associated Diagnoses Date/Ti me (OSC MSURG) BONE MARROW BIOPSY AND ASPIRATION; DIAGNOSTIC (WRVU 1.44) Anemia, in pt with longstanding neutropenia 05/29/2024 2:00 PM EDT documented as of this encounter Procedures Procedure Name Priority Date/Time Associated Diagnosis Comments CARDIAC CATHETERIZATION Routine 11/10/19 1:05 PM EDT Aortic valve stenosis, etiology of cardiac valve disease unspecified Cath [facility] Left Heart Cath & Arts W/Inj & Angio Img S&I ([id number]) 11/09/2022 11:51 AM EDT Aortic valve stenosis, etiology of cardiac valve disease unspecified EKG 12-LEAD Routine 11/09/2022 11:17 AM EDT Aortic valve stenosis, etiology of cardiac valve disease unspecified documented in this encounter Results * CARDIAC CATHETERIZATION (11/09/2022 1:05 PM EDT) Anatomical Region Laterality Modality Other Narrative 11/09/2022 2:01 PM EDT ?[facility] ? Cardiac Catheterization/Intervention Report ? Patient Name: Kirstie, Purnima M. ? Procedure Date: 11/09/2022 ? A #: [id number] ? Primary Physician: Nitesh Escobedo ? Case #: [id number] ? File Name: [id number] ? Catheterization Order Number: [id number] ? [facility] ? Final Report [place], [place] ? Patient Name: ? Purnima M. Kirstie ? ID#: ?[id number] ? : ?1955 ? Procedure Date: ? [...] (Bezet) 457 ms MUSE SYSTEM Calculated P [place] 44 degrees MUSE SYSTEM Calculated R [place] 33 degrees MUSE SYSTEM Calculated T [place] 30 degrees MUSE SYSTEM INTERPRETATION Sinus rhythm Occasional Premature ventricular complexes Otherwise normal ECG When compared with ECG of 21-SEP-2016 12:26, Premature ventricular complexes are now Present NC interval has decreased Nonspecific T wave abnormality has replaced inverted T waves in Inferior leads I personally reviewed the tracing and edited the fellows interpretation Confirmed by fellow MD Anitha, Carissa ([id number]) on 11/09/2022 6:17:28 PM Confirmed by Elsa [...] Until Wed11/09/22 at 1259, Intra-Operative (Intra-Procedure), Routine 121 (Given - Provid er: Mary Baig RN) heparin (porcine) (1,000 units/mL) injection (CANCELED) ONCE PRN, Starting on Wed11/09/22 at 1230, Until Wed11/09/22 at 1259, Intra-Operative (Intra-Procedure), Routine 123 (Given - Provid er: Mary Baig RN) iohexoL (Omnipaque) (350 mg/mL) solution (CANCELED) ONCE PRN, Starting on Wed11/09/22 at 1259, Until Wed11/09/22 at 1259, Intra-Operative (Intra-Procedure), Routine 125 (Given - Provid er: Nitesh Escobedo MD) lidocaine (Xylocaine) 1% (10 mg/mL) injection 3 mg (COMPLETED) 3 mg (0.3 mL), Subcutaneous, ONCE PRN, 1 dose, Starting on Wed11/09/22 at 1110, Until Wed11/09/22 at 1215, with discomfort with PIV insertion, Cath (Day of Procedure), Routine 1214 (Given - Provid er: Nitesh Escobedo MD) lidocaine (Xylocaine) 1% (10 mg/mL) injection (CANCELED) ONCE PRN, Starting on Wed11/09/22 at 1218, Until Wed11/09/22 at 1259, Intra-Operative (Intra-Procedure), Routine 1217 (Given - Provid er: Nitesh Escobedo MD) [...] MD) documented in this encounter Care Teams Diesel Engine Specialist Relationship Specialty Start Date End Date Deborah Quiroga, [employer]ENCH PRECISION ASSEMBLER PCP - General Family Medicine 03/24/16 02/04/23 documented as of this encounter
--- OUTSIDE RECORDS SUMMARY | 2024-05-16 15:38 | XMS_ITS | Encounter Summary ---
[place] [address] Care Team Providers Care Local Government Legislator Name Role Phone Magdalena Acosta MD Primary Care Provider [phone] Encounter Details Date Type Department Care Team [...] PM EDT Hospital Encounter [place]patient [place] [phone] Markel Borjas MD [facility] DR HEMAT[place] [address] 05/29/2024 2:00 PM EDT - 05/29/2024 2:43 PM EDT Surgery [place]patient [place] [phone] Markel Borjas MD [facility] DR [place] [address] (OSC MSURG) BONE MARROW BIOPSY AND ASPIRATION; DIAGNOSTIC (WRVU 1.44) 06/23/2024 2:00 PM EST Office Visit Hematology [place] [address] Markel Borjas MD [facility] DR [place] [address] 03/01/2025 4:15 PM EDT Office Visit Dermatology at [place] [address] [place] [address] Marek Bonilla MD [address], [place] [address] Scheduled Procedures Name Priority Associated Diagnoses Date/Ti me (OSC MSURG) BONE MARROW BIOPSY AND ASPIRATION; DIAGNOSTIC (WRVU 1.44) Anemia, in pt with longstanding neutropenia 05/29/2024 2:00 PM EDT documented as of this encounter Visit Diagnoses Not on filedocumented in this encounter Care Teams Local Government Legislator Relationship Specialty Start Date End Date Magdalena Acosta MD [address] [place] [address] PCP - General Family Medicine 02/05/23 documented as of this encounter
--- OUTSIDE RECORDS SUMMARY | 2024-05-16 15:38 | XMS_ITS | Encounter Summary ---
[place] [address] Care Team Providers Care Plant Controller Name Role Phone Magdalena Acosta MD Primary Care Provider [phone] Encounter Details Date Type Department Care Team [...] PM EDT Hospital Encounter [place] [phone] Markel Borjas MD [facility] [address] HEMATOLOGY [place] [address] 05/29/2024 2:00 PM EDT - 05/29/2024 2:43 PM EDT Surgery [place] [phone] Markel Borjas MD [facility] [address] HEMATOLOGY [place] [address] (OSC MSURG) BONE MARROW BIOPSY AND ASPIRATION; DIAGNOSTIC (WRVU 1.44) 06/23/2024 2:00 PM EST Office Visit [place] [address] Markel Borjas MD [facility] [address] HEMATOLOGY [place] [address] 03/01/2025 4:15 PM EDT Office Visit Dermatology at [place] [address] [place] [address] Marek Bonilla MD [address] [place] [address] Scheduled Procedures Name Priority Associated Diagnoses Date/Ti me (OSC MSURG) BONE MARROW BIOPSY AND ASPIRATION; DIAGNOSTIC (WRVU 1.44) Anemia, in pt with longstanding neutropenia 05/29/2024 2:00 PM EDT documented as of this encounter Visit Diagnoses Not on filedocumented in this encounter Care Teams Plant Controller Relationship Specialty Start Date End Date Magdalena Acosta MD [address] [place] [address] PCP - General Family Medicine 02/05/23 documented as of this encounter
--- OUTSIDE RECORDS SUMMARY | 2024-05-16 15:38 | XMS_ITS | Encounter Summary ---
Author Organization [facility] [place] [address] Care Team Providers Care Wood Turner Name Role Phone Magdalena Acosta MD Primary [...] PM EDT Hospital Encounter Outpatient [place] [phone] Markel Borjas MD [facility] DR HEMATOLOGY [place] [address] 05/29/2024 2:00 PM EDT - 05/29/2024 2:43 PM EDT Surgery Outpatient [place] [phone] Markel Borjas MD [facility] DR HEMATOLOGY [place] [address] (OSC MSURG) BONE MARROW BIOPSY AND ASPIRATION; DIAGNOSTIC (WRVU 1.44) 06/23/2024 2:00 PM EST Office Visit [place]ematology [place] [address] Markel Borjas MD [facility] DR HEMATOLOGY [place] [address] 03/01/2025 4:15 PM EDT Office Visit Dermatology at [place] [address] [place] [address] Marek Bonilla MD [address] [place] [address] Scheduled Procedures Name Priority Associated Diagnoses Date/Ti me (OSC MSURG) BONE MARROW BIOPSY AND ASPIRATION; DIAGNOSTIC (WRVU 1.44) Anemia, in pt with longstanding neutropenia 05/29/2024 2:00 PM EDT documented as of this encounter Visit Diagnoses Not on filedocumented in this encounter Care Teams Wood Turner Relationship Specialty Start Date End Date Magdalena Acosta MD [address] [place] [address] PCP - General Family Medicine 02/05/23 documented as of this encounter
--- OUTSIDE RECORDS SUMMARY | 2024-05-16 15:38 | XMS_ITS | Encounter Summary ---
[place] [address] Care Team Providers Care Continuity Person Name Role Phone Magdalena Acosta MD Primary Care Provider [phone] Reason for Visit * Reason Comments Annual Exam Encounter Details Date Type Department Care Team (Late st Contact Info) Description 02/05/2023 2:30 PM EDT Office Visit Dermatology at [address] [address] Marek Bonilla MD [address] [facility] [place] [address] Rosacea; Ocular rosacea; Nevus Social History Tobacco [...] cutaneous and ocular 2. Previously told by mine inspector that she had corneal tears from [...] PM EDT Hospital Encounter [place] [address] Markel Borjas MD [facility] [address] HEMATOLOGY [place] [address] 05/29/2024 2:00 PM EDT - 05/29/2024 2:43 PM EDT Surgery [place] [address] Markel Borjas MD [facility] DR HEMATOLOGY [place] [address] (OSC MSURG) BONE MARROW BIOPSY AND ASPIRATION; DIAGNOSTIC (WRVU 1.44) 06/23/2024 2:00 PM EST Office Visit [place]ology [place] [address] Markel Borjas MD [facility] [address] HEMATOLOGY [place] [address] 03/01/2025 4:15 PM EDT Office Visit Dermatology at [place] [address] [place] [phone] Marek Bonilla MD [address] [place] [address] Scheduled Procedures Name Priority Associated Diagnoses Date/Ti me (OSC MSURG) BONE MARROW BIOPSY AND ASPIRATION; DIAGNOSTIC (WRVU 1.44) Anemia, in pt with longstanding neutropenia 05/29/2024 2:00 PM EDT documented as of this encounter Visit Diagnoses Diagnosis Rosacea Ocular rosacea Rosacea Nevus Benign neoplasm of skin, site unspecified documented in this encounter Care Teams Continuity Person Relationship Specialty Start Date End Date Magdalena Acosta MD [address] [place] [address] PCP - General Family Medicine 02/05/23 documented as of this encounter
--- OUTSIDE RECORDS SUMMARY | 2024-05-16 15:38 | XMS_ITS | Encounter Summary ---
Author Organization [facility] [place] [address] Care Team Providers Care Tour Bus Driver/Guide Name Role Phone Magdalena Acosta MD Primary Care Provider [phone] Encounter Details Date Type Department Care Team [...] PM EDT Hospital Encounter [place]patient [place] [phone] Markel Borjas MD [facility] DR [place] [address] 05/29/2024 2:00 PM EDT - 05/29/2024 2:43 PM EDT Surgery [place] [phone] Markel Borjas MD [facility] DR [place] [address] (OSC MSURG) BONE MARROW BIOPSY AND ASPIRATION; DIAGNOSTIC (WRVU 1.44) 06/23/2024 2:00 PM EST Office Visit Hematology [place] [address] Markel Borjas MD [facility] DR [place] [address] 03/01/2025 4:15 PM EDT Office Visit Dermatology at [place] [address] [place] [address] Marek Bonilla MD [address] [place] [place] [address] Scheduled Procedures Name Priority Associated Diagnoses Date/Ti me (OSC MSURG) BONE MARROW BIOPSY AND ASPIRATION; DIAGNOSTIC (WRVU 1.44) Anemia, in pt with longstanding neutropenia 05/29/2024 2:00 PM EDT documented as of this encounter Visit Diagnoses Not on filedocumented in this encounter Care Teams Tour Bus Driver/Guide Relationship Specialty Start Date End Date Magdalena Acosta MD [address] [place] [address] PCP - General Family Medicine 02/05/23 documented as of this encounter
--- OUTSIDE RECORDS SUMMARY | 2024-05-16 15:38 | XMS_ITS | Encounter Summary ---
Author Organization [facility] Address [facility] [place] [address] Care Team Providers Care Recreation Program Specialist Name Role Phone Magdalena Acosta MD Primary Care Provider [phone] Reason for Visit * Consultation (Routine) - Closed Specialty Diagnoses / Procedures Referred By Contac t Referred To Contact Rheumatology Diagnoses Weakness Kyra Haas MD [facility] [address] [place] [address] [facility] Rheumatology [address] [place] [phone] Referral ID Status Reason Start Date Expiration Date V isits Requested Visits Authorized [id number] Closed Consult, Test & Treat PCP Updated and/or Approved 02/25/2023 02/25/2024 6 6 Encounter Details Date Type Department Care Team (Late st Contact Info) Description 03/18/2023 1:00 PM EDT Office [place] [address] Kia Viramontes DO [facility] RHEUMATOLOGY [address] Magdalena Peralta MD [facility] RHEUMATOLOGY DEPT [address] Positive FRANCISCO (antinuclear antibody) Social History [...] 1:5120 speckled VIC negative Myositis panel with ELECTRIC METER INSPECTOR ab 149.1 (positive) Anti U1RNP IgG 119 [...] a chair without assistance of upper extremities. 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 Recommendations: #mixed connective tissue disease Start hydroxychloroquine 200 mg qd Labs today: repeat FRANCISCO, dsDNA, complements, CBC, CMP, CK, ESR, CRP Follow up 1 month The patient was seen and discussed with Dr. Wander Peralta MD Rheumatology Fellow Pager: [phone] CC: Kyra Haas * Kia Viramontes DO [...] PM EDT Hospital Encounter [place] [address] Markel Borjas MD [facility] DR HEMATOLOGY AND ONCOLOGY [address] 05/29/2024 2:00 PM EDT - 05/29/2024 2:43 PM EDT Surgery [place] [address] Markel Borjas MD [facility] DR HEMATOLOGY AND ONCOLOGY [address] (OSC MSURG) BONE MARROW BIOPSY AND ASPIRATION; DIAGNOSTIC (WRVU 1.44) 06/23/2024 2:00 PM EST Office Visit Hematology [place] [address] Markel Borjas MD [facility] DR HEMATOLOGY AND ONCOLOGY [address] 03/01/2025 4:15 PM EDT Office Visit Dermatology at [place] [address] [place] [facility] [place] [address] Marek Bonilla MD [address], [place] [address] Scheduled Procedures Name Priority Associated Diagnoses Date/Ti me (OSC MSURG) BONE MARROW BIOPSY AND ASPIRATION; DIAGNOSTIC (WRVU 1.44) Anemia, in pt with longstanding neutropenia 05/29/2024 2:00 PM EDT documented as of this encounter Results * Comprehensive metabolic panel (non-fasting) (03/18/2023 2:14 PM EDT) Glucose 93 65 - 199 mg/dL [facility] Comment:Diabetes: >=200 mg/d L plus symptoms Blood Urea Nitrogen 18 8 - 18 mg/dL [facility] Creatinine 0.99 0.70 - 1.20 mg/dL [facility] Sodium 141 135 - 145 mmol/L [facility] Potassium 4.5 3.5 - 5.0 mmol/L [facility] Comment: Please note: ??Patients with WBC >100,000 may have falsely elevated Potassium levels. ??For accurate Potassium quantification in these patients send serum separator tube (gold top) for subsequent determinations. ??Contact the Clinical Chemistry Laboratory if there are any questions. Chloride 106 98 - 107 mmol/L [facility] Carbon Dioxide 24 22 - 31 mmol/L [facility] Anion Gap 11 5 - 15 mmol/L [facility] Calcium 10.0 8.5 - 10.5 mg/dL [facility] Protein, Total 7.3 6.1 - 8.0 g/dL [facility] Albumin 4.3 3.2 - 5.2 g/dL [facility] Aspartate Aminotransferase 26 0 - 30 unit/L [facility] Alanine Aminotransferase 11 0 - 30 unit/L [facility] Alkaline Phosphatase 91 35 - 105 unit/L [facility] Bilirubin, Total 0.4 0.2 - 1.3 mg/dL [facility] Est Glomerular Filtration Rate 62 >=60 mL/min/1. 73 m?? [facility] Comment: This patient's estimated GFR [...] Kia James Wander DO CHEMISTRY ORDERABL ES [facility] [place] [address] * (ABNORMAL) FRANCISCO Ab by IFA (03/18/2023 2:14 PM EDT) FRANCISCO Ab Screen Test ? Result ?Flag ??Unit ??RefValue Antinuclear Ab, HEp-2 ?Positive 1:2560 ??@ ?<1:80 (Negative) ??Substrate, S ? ADDITIONAL INFORMATION --------- ?Method: Immunofluorescence using HEp-2 cellular substrate. ??FRANCISCO Titer: ? 1:2560 ??FRANCISCO Pattern: ? Speckled ?Test Performed by: ?[facility] ?[address] [place] [address] ?Supervisor Film Processing: Raymond Chaudhry M.D. Ph.D.; CLIA# [id number] ([id number]) [facility] Blood 03/18/2023 2:14 PM EDT 03/18/2023 3:02 PM EDT Narrative Resulting Agency Comment Spec In Lab Kia Viramontes DO CHEMISTRY ORDERABL ES Performing Organization Address [facility] Co de Phone Number [facility] [place] [address] * DNA Antibody (Double-Stranded) (03/18/2023 2:14 PM EDT) dsDNA Ab <0.6 <=15.0 IU/mL [facility] Comment: <10 negative 10-15 equivocal >15 positive This dsDNA antibody result was generated using a fluoroenzyme immunoassay on the Influitive 250 analyzer. This quantitative test is designed to detect IgG antibodies directed against double stranded DNA in human serum. The presence of antibodies that recognize dsDNA is a highly specific marker for systemic lupus erythematosus. Please note that as of 05/26/2022 that this testing is performed by the Special Chemistry Laboratory at [facility]. This change in testing location is associated with a change is testing method and reference intervals. Please review the results of this test in association with the posted reference intervals. Blood 03/18/2023 2:14 PM EDT 03/19/2023 7:19 AM EDT Narrative Resulting Agency Comment Spec In Lab Kia Viramontes DO LAB SEND OUT ORDER JODIE Performing Organization Address [facility] Co de Phone Number [facility] [place] [address] * CK (03/18/2023 2:14 PM EDT) Creatine Kinase 38 0 - 160 unit/L [facility] Blood 03/18/2023 2:14 PM EDT 03/18/2023 2:24 PM EDT Narrative Resulting Agency Comment Spec In Lab Kia Viramontes DO CHEMISTRY ORDERABL ES Performing Organization Address [facility]/ZIP Co de Phone Number [facility] [place] [address] * C4 Complement (03/18/2023 2:14 PM EDT) Complement C4 30 10 - 40 mg/dL [facility] Blood 03/18/2023 2:14 PM EDT 03/18/2023 2:24 PM EDT Narrative Resulting Agency Comment Spec In Lab Kia D Wander DO CHEMISTRY ORDERABL ES Performing Organization Address [facility] Co de Phone Number [facility] [place] [address] * C3 Complement (03/18/2023 2:14 PM EDT) Complement C3 142 90 - 180 mg/dL [facility] Blood 03/18/2023 2:14 PM EDT 03/18/2023 2:24 PM EDT Narrative Resulting Agency Comment Spec In Lab Kiagiacomo Viramontes DO CHEMISTRY ORDERABL ES Performing Organization Address [facility] Co de Phone Number [facility] [place] [address] * CRP, acute inflammation (03/18/2023 2:14 PM EDT) C-Reactive Protein 3.0 <=4.9 mg/L [facility] Blood 03/18/2023 2:14 PM EDT 03/18/2023 2:24 PM EDT Narrative Resulting Agency Comment Spec In Lab Kia D Wander DO CHEMISTRY ORDERABL ES Performing Organization Address [facility] Co de Phone Number [facility] [place] [address] * (ABNORMAL) Sedimentation rate (03/18/2023 2:14 PM EDT) Sedimentation Rate Automated 68(H) 2 - 39 mm/hr [facility] Comment: Effective July 12, 2019 new capillary photometric technology has resulted in a change in reference ranges. It is recommended that each ESR result be reviewed with its own age appropriate reference range. Blood 03/18/2023 2:14 PM EDT 03/18/2023 2:24 PM EDT Narrative Resulting Agency Comment Spec In Lab Kia Viramontes DO HEMATOLOGY ORDERAB LES Performing Organization Address City/State/[facility] Co de Phone Number [facility] [place] [address] documented in this encounter Visit Diagnoses Diagnosis Positive FRANCISCO (antinuclear antibody) Other and unspecified nonspecific immunological findings documented in this encounter Care Teams Recreation Program Specialist Relationship Specialty Start Date End Date Magdalena Acosta MD [address] [place] [address] PCP - General Family Medicine 02/05/23 documented as of this encounter
--- OUTSIDE RECORDS SUMMARY | 2024-05-16 15:38 | XMS_ITS | Encounter Summary ---
[place] [address] Care Team Providers Care Deputy Sheriff Custody Name Role Phone Magdalena Acosta MD Primary Care Provider [phone] Encounter Details Date Type Department Care Team [...] PM EDT Hospital Encounter Outpatient [place] [phone] Markel Borjas MD [facility] [address] [place] [address] 05/29/2024 2:00 PM EDT - 05/29/2024 2:43 PM EDT Surgery Outpatient [place] [address] Markel Borjas MD [facility] [address] [place] [address] (OSC MSURG) BONE MARROW BIOPSY AND ASPIRATION; DIAGNOSTIC (WRVU 1.44) 06/23/2024 2:00 PM EST Office Visit Hematology [place] [address] Markel Borjas MD [facility] [address] [place] [address] 03/01/2025 4:15 PM EDT Office Visit Dermatology at [place] [address] [place] [address] Marek Bonilla MD [address] Katherine [place] [address] Scheduled Procedures Name Priority Associated Diagnoses Date/Ti me (OSC MSURG) BONE MARROW BIOPSY AND ASPIRATION; DIAGNOSTIC (WRVU 1.44) Anemia, in pt with longstanding neutropenia 05/29/2024 2:00 PM EDT documented as of this encounter Visit Diagnoses Not on filedocumented in this encounter Care Teams Deputy Sheriff Custody Relationship Specialty Start Date End Date Magdalena Acosta MD [address] [place] [address] PCP - General Family Medicine 02/05/23 documented as of this encounter
--- OUTSIDE RECORDS SUMMARY | 2024-05-16 15:38 | XMS_ITS | Encounter Summary ---
[place] [address] Care Team Providers Care Aerial Gunner Superintendent Name Role Phone Magdalena Acosta MD Primary Care Provider [phone] Encounter Details Date Type Department Care Team [...] PM EDT Hospital Encounter Outpatient [place] [address] Markel Borjas MD [facility] [place] [address] 05/29/2024 2:00 PM EDT - 05/29/2024 2:43 PM EDT Surgery Outpatient [place] [address] Markel Borjas MD [facility] [place] [address] (OSC MSURG) BONE MARROW BIOPSY AND ASPIRATION; DIAGNOSTIC (WRVU 1.44) 06/23/2024 2:00 PM EST Office Visit Hematology [place] [address] Markel Borjas MD [facility] [place] [address] 03/01/2025 4:15 PM EDT Office Visit Dermatology at [place] [address] [place] [address] Marek Bonilla MD [address] Katherine [place] [address] Scheduled Procedures Name Priority Associated Diagnoses Date/Ti me (OSC MSURG) BONE MARROW BIOPSY AND ASPIRATION; DIAGNOSTIC (WRVU 1.44) Anemia, in pt with longstanding neutropenia 05/29/2024 2:00 PM EDT documented as of this encounter Visit Diagnoses Not on filedocumented in this encounter Care Teams Aerial Gunner Superintendent Relationship Specialty Start Date End Date Magdalena Acosta MD [address] [place] [address] PCP - General Family Medicine 02/05/23 documented as of this encounter
--- OUTSIDE RECORDS SUMMARY | 2024-05-16 15:38 | XMS_ITS | Encounter Summary ---
Author Organization [facility] Address [facility] [place] [address] Care Team Providers Care Government Program Manager Name Role Phone Magdalena Acosta MD Primary Care Provider [phone] Encounter Details Date Type Department Care Team (Late st Contact Info) Description 04/27/2023 3:00 PM EDT Office [place] [address] Magdalena Peralta MD [facility] [place] [address] Mixed connective tissue disease Social History Tobacco [...] 1:5120 speckled; VIC negative; Myositis panel with ACCOUNT LEADER ab 149.1 (positive); Anti U1RNP IgG 119; [...] PM EDT Hospital Encounter Outpatient [place] [address] Markel Borjas MD [facility] DR HEMATOLOGY [place] [address] 05/29/2024 2:00 PM EDT - 05/29/2024 2:43 PM EDT Surgery Outpatient [place] [address] Markel Borjas MD [facility] DR HEMATOLOGY [place] [address] (OSC MSURG) BONE MARROW BIOPSY AND ASPIRATION; DIAGNOSTIC (WRVU 1.44) 06/23/2024 2:00 PM EST Office Visit Hematology [place] [address] Markel Borjas MD [facility] DR [place]AT[place] [address] 03/01/2025 4:15 PM EDT Office Visit Dermatology at [place] [address] [place] [address] Marek Bonilla MD [address] [place] [address] Scheduled Procedures Name Priority Associated Diagnoses Date/Ti me (OSC MSURG) BONE MARROW BIOPSY AND ASPIRATION; DIAGNOSTIC (WRVU 1.44) Anemia, in pt with longstanding neutropenia 05/29/2024 2:00 PM EDT documented as of this encounter Visit Diagnoses Diagnosis Mixed connective tissue disease Other specified diffuse disease of connective tissue documented in this encounter Care Teams Government Program Manager Relationship Specialty Start Date End Date Magdalena Acosta MD [address] [place] [address] PCP - General Family Medicine 02/05/23 documented as of this encounter
--- OUTSIDE RECORDS SUMMARY | 2024-05-16 15:38 | XMS_ITS | Encounter Summary ---
[place] [address] Care Team Providers Care Land Development Project Manager Name Role Phone Magdalena Acosta MD Primary Care Provider [phone] Reason for Visit * Reason Comments Suture / Staple Removal Encounter Details Date Type Department Care Team (Late st Contact Info) Description 02/16/2023 10:00 AM EDT Office Visit Dermatology at [place] [address] [place] [phone] Marek Bonilla MD [address] DERMATOLOGY [place], [place] [address] Visit for suture removal Social History Tobacco [...] PM EDT Hospital Encounter [place]patient [place] [address] Markel Borjas MD [facility] DR HEMATOLOGY [place] [address] 05/29/2024 2:00 PM EDT - 05/29/2024 2:43 PM EDT Surgery [place] [address] Markel Borjas MD [facility] DR HEMATOLOGY [place] [address] (OSC MSURG) BONE MARROW BIOPSY AND ASPIRATION; DIAGNOSTIC (WRVU 1.44) 06/23/2024 2:00 PM EST Office Visit Hematology [place] [address] Markel Borjas MD [facility] DR HEMATOLOGY [place] [address] 03/01/2025 4:15 PM EDT Office Visit Dermatology at [place] [address] [place] [address] Marek Bonilla MD [address] [place] DERMATOLOGY [place], [place] [address] Scheduled Procedures Name Priority Associated Diagnoses Date/Ti me (OSC MSURG) BONE MARROW BIOPSY AND ASPIRATION; DIAGNOSTIC (WRVU 1.44) Anemia, in pt with longstanding neutropenia 05/29/2024 2:00 PM EDT documented as of this encounter Visit Diagnoses Diagnosis Visit for suture removal Encounter for removal of sutures documented in this encounter Care Teams Land Development Project Manager Relationship Specialty Start Date End Date Magdalena Acosta MD [address] [place] [address] PCP - General Family Medicine 02/05/23 documented as of this encounter
--- OUTSIDE RECORDS SUMMARY | 2024-05-16 15:38 | XMS_ITS | Encounter Summary ---
Author Organization [facility] [place] [address] Care Team Providers Care Truss Puller Helper Name Role Phone Magdalena Acosta MD Primary Care Provider [phone] Reason for Referral * Consultation (Routine) - Closed Specialty Diagnoses / Procedures Referred By Contac t Referred To Contact Rheumatology Diagnoses Weakness Kyra Haas MD [facility] [address] [place] [address] [facility] Rheumatology [address] [place] [phone] Referral ID Status Reason Start Date Expiration Date V isits Requested Visits Authorized [id number] Closed Consult, Test & Treat PCP Updated and/or Approved 02/25/2023 02/25/2024 6 6 Encounter Details Date Type Department Care Team (Late st Contact Info) Description 02/25/2023 Transcribe Orders eDH Incoming Referrals [phone] Magdalena Acosta MD [address] [place] [address] Weakness Social History Tobacco Use [...] PM EDT Hospital Encounter [place] [phone] Markel Borjas MD [facility] [address] H[place] [address] 05/29/2024 2:00 PM EDT - 05/29/2024 2:43 PM EDT Surgery [place] [phone] Markel Borjas MD [facility] DR HEMATOLOG[place] [address] (OSC MSURG) BONE MARROW BIOPSY AND ASPIRATION; DIAGNOSTIC (WRVU 1.44) 06/23/2024 2:00 PM EST Office Visit Hematology [place] [phone] Markel Borjas MD [facility] DR HEMATOLOGY [place] [address] 03/01/2025 4:15 PM EDT Office Visit Dermatology at [place] [address] [place] [phone] Marek Bonilla MD [address], [place] [address] Scheduled Procedures Name Priority Associated Diagnoses Date/Ti [...] fatigue documented in this encounter Care Teams Truss Puller Helper Relationship Specialty Start Date End Date Magdalena Acosta MD [address] [place] [address] PCP - General Family Medicine 02/05/23 documented as of this encounter
--- OUTSIDE RECORDS SUMMARY | 2024-05-16 15:38 | XMS_ITS | Encounter Summary ---
Author Organization [facility] [place] [address] Care Team Providers Care Senior Ui Software Engineer Name Role Phone Magdalena Acosta MD Primary Care Provider [phone] Encounter Details Date Type Department Care Team (Latest Contact Info) Description 02/05/2023 9:33 PM EDT - 02/05/2023 11:59 PM EDT Hospital [place] [phone] Discharge Disposition: Home Social History Tobacco Use [...] by mouth once as needed. Before dental cyanocobalamin, Vitamin B-12, (Vitamin B-12) 1,000 mcg [...] PM EDT Hospital Encounter [place] [phone] Markel Borjas MD [facility] DR HEMATOLOGY [place] [address] 05/29/2024 2:00 PM EDT - 05/29/2024 2:43 PM EDT Surgery [place] [phone] Markel Borjas MD [facility] HEMATOLOGY [place] [address] (OSC MSURG) BONE MARROW BIOPSY AND ASPIRATION; DIAGNOSTIC (WRVU 1.44) 06/23/2024 2:00 PM EST Office Visit Hematology [place] [address] Markel Borjas MD [facility] [address] HEMATOLOGY [place] [address] 03/01/2025 4:15 PM EDT Office Visit Dermatology at [place] [address] [place] [phone] Marek Bonilla MD [address], [place] [address] Scheduled Procedures Name Priority Associated [...] Report (02/05/2023 3:00 PM EDT) Final Diagnosis [id number] ? Location: OPW The signing pathologist has (i) examined the relevant preparation(s) for the specimen(s) and (ii) rendered or confirmed the diagnosis(es). . ?Surgical Pathology DIAGNOSIS Left upper back, skin punch biopsy: - ??Compound dysplastic ??melanocytic nevus with moderate atypia, transected at peripheral specimen edges ?? (see discussion) Electronically signed by: ?Vanna CULP, Jesse Shields Verified: ??02/16/2023 8:04 ?? Dermatopathologist Performed at: ??-[facility] Dept. of Pathology, [place] [address] Optical Mechanic Apprentice: Kunal Rubi MD, FCAP, ??CLIA Certificate: [id number] DISCUSSION If there is an obvious clinical [...] labeled A1. ??sns 02/16/2023 8:04 AM EDT [facility] SPECIMEN FROM SKIN / Unknown 02/05/2023 3:00 PM EDT 02/05/2023 3:00 PM EDT Marek Bonilla MD PATHOLOGY/CYTOLOGY [facility] [address] [place] [address] documented in this encounter Visit Diagnoses Not on filedocumented in this encounter Care Teams Senior Ui Software Engineer Relationship Specialty Start Date End Date Magdalena Acosta MD [address] [place] [address] PCP - General Family Medicine 02/05/23 documented as of this encounter
--- OUTSIDE RECORDS SUMMARY | 2024-05-16 15:38 | XMS_ITS | Encounter Summary ---
Author Organization [facility] [address] Care Team Providers Care Experimental Technician Name Role Phone Magdalena Acosta MD Primary Care Provider [phone] Encounter Details Date Type Department Care Team (Late st Contact Info) Description 05/08/2023 [place] [phone] Luis Felipe Ott MD [facility] [place] [address] Social History Tobacco Use Types Packs/Day Years [...] 0426 Referring Provider: Nitesh Baltazar Patient Location: [facility] Presenting Symptoms per OSH: [...] diuresis with IV furosemide 20 x 1 (gaaslifclw50/47 at rheumatology appointment), SpO2 85% on RA -> 95% on 2L NC, HR 120s. Examination significant for decreased breath sounds at the bases. Pertinent Diagnostic Findings: CBC - Hgb 10.5 CMP - Cr 1.1 BNP 66329 HsTrop 1358 Lactate 1.6 D-dimer 1183, CTPE pending CXR demonstrated pulmonary vascular congestion US showed bilateral b lines Bedside echo reportedly similar to prior TTE for LV function OSH Interventions: ASA 324 Heparin gtt Plan: Transfer to [facility] Above recommendations/plans are based on my conversation with the referring provider. I have not personally interviewed or examined this patient. Luis Felipe Ott MD Migratory Game Bird Biologist Received a call from provider emergently at 715am. Mentating well and BP 87/53. HR 108 and diursingwell. They were about to start phenylephrine which I stressed was not a good option given concern for severe and increasing afterload. She is warm on exam, mentating and urinating and we do not need to amrit a BP if those things remain stable. Nico Segura, PGY-6 Migratory Game Bird Biologist [id number] documented in this encounter Plan of Treatment Upcoming Encounters Date Type Department Care Team (Late st Contact Info) Description 05/29/2024 2:00 PM EDT Hospital Encounter Outpatient [place] [address] Markel Borjas MD [facility] [address] [place] [address] 05/29/2024 2:00 PM EDT - 05/29/2024 2:43 PM EDT Surgery Outpatient [facility] [place] [address] Markel Borjas MD [facility] [address] [place] [address] (OSC MSURG) BONE MARROW BIOPSY AND ASPIRATION; DIAGNOSTIC (WRVU 1.44) 06/23/2024 2:00 PM EST Office Visit Hematology [place] [phone] Markel Borjas MD [facility] [address] [place] [address] 03/01/2025 4:15 PM EDT Office Visit Dermatology at [place] [address] [place] [phone] Marek Bonilla MD [address], [place] [address] Scheduled Procedures Name Priority Associated Diagnoses Date/Ti me (OSC MSURG) BONE MARROW BIOPSY AND ASPIRATION; DIAGNOSTIC (WRVU 1.44) Anemia, in pt with longstanding neutropenia 05/29/2024 2:00 PM EDT documented as of this encounter Visit Diagnoses Not on filedocumented in this encounter Care Teams Experimental Technician Relationship Specialty Start Date End Date Magdalena Acosta MD [address] [place] [address] PCP - General Family Medicine 02/05/23 documented as of this encounter
--- OUTSIDE RECORDS SUMMARY | 2024-05-16 15:38 | XMS_ITS | Encounter Summary ---
Author Organization [facility] [place] [address] Care Team Providers Care Analytics Lead Name Role Phone Magdalena Acosta MD Primary Care Provider [phone] Encounter Details Date Type Department Care Team (Late st Contact Info) Description 02/17/2023 2:00 PM EDT Office [place] [phone] Alirio Esparza MD Aortic valve stenosis, etiology [...] PM EDT Hospital Encounter [place]patient [place] [phone] [facility] [address] HEMATOLOGY [place] [address] 05/29/2024 2:00 PM EDT - 05/29/2024 2:43 PM EDT Surgery [place] [address] [facility] [address] HEMATOLOGY [place] [address] (OSC MSURG) BONE MARROW BIOPSY AND ASPIRATION; DIAGNOSTIC (WRVU 1.44) 06/23/2024 2:00 PM EST Office Visit Hematology [place] [phone] [facility] [address] HEMATOLOGY [place] [address] 03/01/2025 4:15 PM EDT Office Visit Dermatology at [place] [address] [place] [address] Marek Bonilla MD [address], [place] [address] Scheduled Procedures Name Priority Associated Diagnoses Date/Ti me (OSC MSURG) BONE MARROW BIOPSY AND ASPIRATION; DIAGNOSTIC (WRVU 1.44) Anemia, in pt with longstanding neutropenia 05/29/2024 2:00 PM EDT documented as of this encounter Visit Diagnoses Diagnosis Aortic valve stenosis, etiology of cardiac valve disease unspecified documented in this encounter Care Teams Analytics Lead Relationship Specialty Start Date End Date Magdalena Acosta MD [address] [place] [address] PCP - General Family Medicine 02/05/23 documented as of this encounter
--- OUTSIDE RECORDS SUMMARY | 2024-05-16 15:38 | XMS_ITS | Encounter Summary ---
[place] [address] Care Team Providers Care Airport Baggage Screener Name Role Phone Magdalena Acosta MD Primary Care Provider [phone] Encounter Details Date Type Department Care Team (Latest Contact Info) Description 03/18/2023 2:30 PM EDT Laboratory Appointment Lab [address] [place] [phone] Positive FRANCISCO (antinuclear antibody) Social History Tobacco [...] PM EDT Hospital Encounter [place]patient [place] [phone] Markel Borjas MD [facility] [address] [place] [address] 05/29/2024 2:00 PM EDT - 05/29/2024 2:43 PM EDT Surgery [place] [phone] Markel Borjas MD [facility] [address] [place] [address] (OSC MSURG) BONE MARROW BIOPSY AND ASPIRATION; DIAGNOSTIC (WRVU 1.44) 06/23/2024 2:00 PM EST Office Visit Hematology and Oncology at [facility] [place] [address] Markel Borjas MD [facility] [address] [place] [address] 03/01/2025 4:15 PM EDT Office Visit Dermatology at [place] [address] [place] [phone] Marek Bonilla MD [address], [place] [address] Scheduled Procedures Name Priority Associated Diagnoses Date/Ti [...] 2:14 PM EDT) Neutrophil % 71.2 % [facility] Neutrophil Absolute 2.26 1.70 - 6.10 x10(3)/mc L [facility] Lymph % 18.2 % [facility] Lymphocytes Abs 0.6(L) 0.9 - 3.2 x10(3)/mc L [facility] Monocyte % 9.7 % [facility] Monocyte Abs 0.3 0.3 - 0.9 x10(3)/mc L [facility] Eos % 0.3 % [facility] Eosinophils Abs 0.0 0.0 - 0.4 x10(3)/mc L [facility] Basophil % 0.6 % [facility] Baso Absolute 0.0 0.0 - 0.1 x10(3)/mc L [facility] Immature Gran % 0.00 % [facility] Comment: Immature granulocytes(IG's)percentage and absolute count will include metamyelocytes, myelocytes, and promyelocytes. Blood smears from CBCs yielding IG's will be scanned manually for concordance. If this scan disagrees with the automated IG or if promyelocytes are noted, a manual differential will be performed. Immature Gran Absolute 0.00 0.00 - 0.04 x10(3)/mc L [facility] Blood 03/18/2023 2:14 PM EDT 03/18/2023 2:24 PM EDT Narrative Resulting Agency Comment Spec In Lab Magdalena Peralta MD HEMATOLOGY ORDERABLE S [facility] [place] [address] * (ABNORMAL) Hemogram (03/18/2023 2:14 PM EDT) White Blood Cell 3.2(L) 4.0 - 9.5 x10(3)/mc L [facility] Red Blood Cell 3.44(L) 4.00 - 5.21 x10(6)/mc L [facility] Hemoglobin 11.1(L) 11.7 - 15.5 g/dL [facility] Hematocrit 32.9(L) 35.7 - 45.8 % [facility] Mean Cell Volume 95.6(H) 82.6 - 94.4 fL [facility] Mean Cell Hemoglobin 32.3(H) 27.1 - 32.0 pg [facility] Mean Cell Hemoglobin Concentration 33.7 31.7 - 35.0 g/dL [facility] Platelet 144(L) 145 - 357 x10(3)/mc L [facility] RDW Standard Deviation 42.6 37.0 - 46.0 fL [facility] RDW coefficient of variation 12.3 11.5 - 14.1 % [facility] Mean Platelet Volume 9.4 7.6 - 12.9 fL [facility] NRBC% auto 0.0 % [facility] NRBC Absolute 0.000 0.000 - 0.000 x10(3)/mc L [facility] Blood 03/18/2023 2:14 PM EDT 03/18/2023 2:24 PM EDT Narrative Resulting Agency Comment Spec In Lab Magdalena Peralta MD HEMATOLOGY ORDERABLE S Performing Organization Address City/[facility]/ZIP Co de Phone Number [facility] [place] [address] * (ABNORMAL) Sedimentation rate (03/18/2023 2:14 PM EDT) Sedimentation Rate Automated 68(H) 2 - 39 mm/hr [facility] Comment: Effective July 12, 2019 new capillary photometric technology has resulted in a change in reference ranges. It is recommended that each ESR result be reviewed with its own age appropriate reference range. Blood 03/18/2023 2:14 PM EDT 03/18/2023 2:24 PM EDT Narrative Resulting Agency Comment Spec In Lab Kia D Wander DO HEMATOLOGY ORDERAB LES Performing Organization Address City/[facility]/ZIP Co de Phone Number [facility] [place] [address] * CRP, acute inflammation (03/18/2023 2:14 PM EDT) C-Reactive Protein 3.0 <=4.9 mg/L [facility] Blood 03/18/2023 2:14 PM EDT 03/18/2023 2:24 PM EDT Narrative Resulting Agency Comment Spec In Lab Kia D Wander DO CHEMISTRY ORDERABL ES Performing Organization Address [facility] Co de Phone Number [facility] [place] [address] * C3 Complement (03/18/2023 2:14 PM EDT) Complement C3 142 90 - 180 mg/dL [facility] Blood 03/18/2023 2:14 PM EDT 03/18/2023 2:24 PM EDT Narrative Resulting Agency Comment Spec In Lab Kia D Wander DO CHEMISTRY ORDERABL ES Performing Organization Address [facility] Co de Phone Number [facility] [place] [address] * C4 Complement (03/18/2023 2:14 PM EDT) Complement C4 30 10 - 40 mg/dL [facility] Blood 03/18/2023 2:14 PM EDT 03/18/2023 2:24 PM EDT Narrative Resulting Agency Comment Spec In Lab Kia Viramontes DO CHEMISTRY ORDERABL ES Performing Organization Address [facility] Co de Phone Number [facility] [place] [address] * CK (03/18/2023 2:14 PM EDT) Creatine Kinase 38 0 - 160 unit/L [facility] Blood 03/18/2023 2:14 PM EDT 03/18/2023 2:24 PM EDT Narrative Resulting Agency Comment Spec In Lab Kia Viramontes DO CHEMISTRY ORDERABL ES Performing Organization Address [facility] de Phone Number [facility] [place] [address] * DNA Antibody (Double-Stranded) (03/18/2023 2:14 PM EDT) Pathologist [facility] dsDNA Ab <0.6 <=15.0 IU/mL [facility] Comment: <10 negative 10-15 equivocal >15 positive This dsDNA antibody result was generated using a fluoroenzyme immunoassay on the [employer] 250 analyzer. This quantitative test is designed to detect IgG antibodies directed against double stranded DNA in human serum. The presence of antibodies that recognize dsDNA is a highly specific marker for systemic lupus erythematosus. Please note that as of 05/26/2022 that this testing is performed by the Special Chemistry Laboratory at [facility]. This change in testing location is associated with a change is testing method and reference intervals. Please review the results of this test in association with the posted reference intervals. Blood 03/18/2023 2:14 PM EDT 03/19/2023 7:19 AM EDT Narrative Resulting Agency Comment Spec In Lab Kia James Wander DO LAB SEND OUT ORDER JODIE Performing Organization Address City/[facility] Co de Phone Number [facility] [place] [address] * (ABNORMAL) FRANCISCO Ab by IFA (03/18/2023 2:14 PM EDT) Pathologist [facility] FRANCISCO Ab Screen Test ? Result ?Flag ??Unit ??RefValue Antinuclear Ab, HEp-2 ?Positive 1:2560 ??@ ?<1:80 (Negative) ??Substrate, S ? ADDITIONAL INFORMATION --------- ?Method: Immunofluorescence using HEp-2 cellular substrate. ??FRANCISCO Titer: ? 1:2560 ??FRANCISCO Pattern: ? Speckled ?Test Performed by: ?[facility] ?[address] [place] [address] ?Drug Abuse Treatment Specialist: Raymond Chaudhry M.D. Ph.D.; CLIA# [id number] ([id number]) [facility] Blood 03/18/2023 2:14 PM EDT 03/18/2023 3:02 PM EDT Narrative Resulting Agency Comment Spec In Lab Kia Viramontes DO CHEMISTRY ORDERABL ES [facility] [address] [place] [address] * Comprehensive metabolic panel (non-fasting) (03/18/2023 2:14 PM EDT) Glucose 93 65 - 199 mg/dL [facility] Comment:Diabetes: >=200 mg/d L plus symptoms Blood Urea Nitrogen 18 8 - 18 mg/dL [facility] Creatinine 0.99 0.70 - 1.20 mg/dL [facility] Sodium 141 135 - 145 mmol/L [facility] Potassium 4.5 3.5 - 5.0 mmol/L [facility] Comment: Please note: ??Patients with WBC >100,000 may have falsely elevated Potassium levels. ??For accurate Potassium quantification in these patients send serum separator tube (gold top) for subsequent determinations. ??Contact the Clinical Chemistry Laboratory if there are any questions. Chloride 106 98 - 107 mmol/L [facility] Carbon Dioxide 24 22 - 31 mmol/L [facility] Anion Gap 11 5 - 15 mmol/L [facility] Calcium 10.0 8.5 - 10.5 mg/dL [facility] Protein, Total 7.3 6.1 - 8.0 g/dL [facility] Albumin 4.3 3.2 - 5.2 g/dL [facility] Aspartate Aminotransferase 26 0 - 30 unit/L [facility] Alanine Aminotransferase 11 0 - 30 unit/L [facility] Alkaline Phosphatase 91 35 - 105 unit/L [facility] Bilirubin, Total 0.4 0.2 - 1.3 mg/dL [facility] Est Glomerular Filtration Rate 62 >=60 mL/min/1. 73 m?? [facility] Comment: This patient's estimated GFR was [...] Lab Kia Viramontes DO CHE[place] [address] documented in this encounter Visit Diagnoses Diagnosis Positive FRANCISCO (antinuclear antibody) Other and unspecified nonspecific immunological findings documented in this encounter Care Teams Airport Baggage Screener Relationship Specialty Start Date End Date Magdalena Acosta MD [address] [place] [address] PCP - General Family Medicine 02/05/23 documented as of this encounter
--- OUTSIDE RECORDS SUMMARY | 2024-05-16 15:38 | XMS_ITS | Encounter Summary ---
Author Organization [facility] Address [facility] [place] [address] Care Team Providers Care Senior Database Programmer Name Role Phone Magdalena Acosta MD Primary Care Provider [phone] Encounter Details Date Type Department Care Team (Late st Contact Info) Description 03/29/2023 Orders Only Cardiology at [address] [phone] Ranjan Delgado MD [facility] [place] [address] Severe aortic stenosis (Primary Dx) Social History [...] PM EDT Hospital Encounter Outpatient [place] [phone] Markel Borjas MD [facility] [place] [address] 05/29/2024 2:00 PM EDT - 05/29/2024 2:43 PM EDT Surgery Outpatient [place] [address] Markel Borjas MD [facility] DR [place] [address] (OSC MSURG) BONE MARROW BIOPSY AND ASPIRATION; DIAGNOSTIC (WRVU 1.44) 06/23/2024 2:00 PM EST Office Visit [place] [address] Markel Borjas MD [facility] DR [place] [address] 03/01/2025 4:15 PM EDT Office Visit Dermatology at [place] [address] [place] [phone] Marek Bonilla MD [address], [place] [address] Scheduled Orders Name Type Priority Associated Diagnoses Orde r Schedule CBC (with Diff) Lab Routine Severe aortic stenosis Expected: 04/01/2023, Expires: 03/28/2024 Comprehensive metabolic panel (non-fasting) Lab Routine Severe aortic stenosis Expected: 04/01/2023, Expires: 03/28/2024 EKG 12 Lead ECG Routine Severe aortic stenosis Expected: 06/29/2023 (Approximate) Scheduled Procedures Name Priority Associated Diagnoses Date/Ti me (OSC MSURG) BONE MARROW BIOPSY AND ASPIRATION; DIAGNOSTIC (WRVU 1.44) Anemia, in pt with longstanding neutropenia 05/29/2024 2:00 PM EDT documented as of this encounter Visit Diagnoses Diagnosis Severe aortic stenosis- Primary Aortic valve disorders documented in this encounter Care Teams Senior Database Programmer Relationship Specialty Start Date End Date Magdalena Acosta MD [address] [place] [address] PCP - General Family Medicine 02/05/23 documented as of this encounter
--- OUTSIDE RECORDS SUMMARY | 2024-05-16 15:39 | XMS_ITS | Encounter Summary ---
Author Organization [facility] [place] [address] Care Team Providers Care Take Out Waiter Name Role Phone Deborah Quiroga ANURAG Primary Care Provider [phone] Encounter Details Date Type Department Care Team (Late st Contact Info) Description 12/04/2016 External Results Hematology [place] [phone] Teresa Dodson RN Social History Tobacco Use [...] PM EDT Hospital Encounter [place] [phone] Markel Borjas MD [facility] HEMATOLOGY [place] [address] 05/29/2024 2:00 PM EDT - 05/29/2024 2:43 PM EDT Surgery [place] [phone] Markel Borjas MD [facility] HEMATOLOGY AND ONCOLOGY [place], [place] [phone] (OSC MSURG) BONE MARROW BIOPSY AND ASPIRATION; DIAGNOSTIC (WRVU 1.44) 06/23/2024 2:00 PM EST Office Visit Hematology [place] [address] Markel Borjas MD [facility] DR HEMATOLOGY [place] [address] 03/01/2025 4:15 PM EDT Office Visit Dermatology at [place] [address] [place] [phone] Marek Bonilla MD [address], [place] [address] Scheduled Procedures Name Priority Associated Diagnoses Date/Ti [...] panel (non-fasting) (12/03/2016 11:35 AM EDT) Glucose 85(Metal Machine Setter al Lab) Blood Urea Nitrogen 11(Metal Machine Setter al Lab) Creatinine 0.93(Exte rnal Lab) Sodium 140(Exter nal Lab) Potassium 4.2(Exter nal Lab) Chloride 104(Exter nal Lab) Calcium 10.0(Exte rnal Lab) Protein, Total 8.1(Exter nal Lab) Albumin 3.5(Exter nal Lab) Bilirubin, Total 0.25(Exte rnal Lab) Alkaline Phosphatase 96(Metal Machine Setter al Lab) Aspartate Aminotransferase 18(Metal Machine Setter al Lab) Alanine Aminotransferase 21(Metal Machine Setter al Lab) Blood specimen (specimen) 12/03/2016 11:35 AM EDT Historical Provider CHEMISTRY ORDERAB LES * (ABNORMAL) CBC (with Diff) (12/03/2016 11:35 AM EDT) White Blood Cell 1.61(EXTER NAL/ABN) 4.4 - 10.8 Hemoglobin 13.0(Exter nal Lab) Hematocrit 39.8(Exter nal Lab) Platelet 248(Metal Machine Setter al Lab) Neutrophil Absolute (ANC) - Automated 0.5(TEST CELL TECHNICIAN AL/ABN) Blood specimen (specimen) 12/03/2016 11:35 AM EDT Historical Provider HEMATOLOGY ORDERA BLES documented in this encounter Visit Diagnoses Not on filedocumented in this encounter Care Teams Take Out Waiter Relationship Specialty Start Date End Date Deborah Quiroga, ELECTRIC MOTOR TESTER PCP - General Family Medicine 03/24/16 02/04/23 documented as of this encounter
--- OUTSIDE RECORDS SUMMARY | 2024-05-16 15:39 | XMS_ITS | Encounter Summary ---
Author Organization [facility] [place] [address] Care Team Providers Care Boat Operator Name Role Phone Junaid Deborah Shields APRN Primary Care Provider [phone] Encounter Details Date Type Department Care Team [...] PM EDT Hospital Encounter Outpatient [place] [phone] Markel Borjas MD [facility] [address] [place] [address] 05/29/2024 2:00 PM EDT - 05/29/2024 2:43 PM EDT Surgery Outpatient [place] [phone] Markel Borjas MD [facility] [address] [place] [address] (OSC MSURG) BONE MARROW BIOPSY AND ASPIRATION; DIAGNOSTIC (WRVU 1.44) 06/23/2024 2:00 PM EST Office Visit Hematology [place] [address] Markel Borjas MD [facility] [address] [place] [address] 03/01/2025 4:15 PM EDT Office Visit Dermatology at [place] [address] [place] [address] Marek Bonilla MD [address] [place] [address] Scheduled Procedures Name Priority Associated Diagnoses Date/Ti me (OSC MSURG) BONE MARROW BIOPSY AND ASPIRATION; DIAGNOSTIC (WRVU 1.44) Anemia, in pt with longstanding neutropenia 05/29/2024 2:00 PM EDT documented as of this encounter Visit Diagnoses Not on filedocumented in this encounter Care Teams Boat Operator Relationship Specialty Start Date End Date Deborah Quiroga, INSPECTOR CASING PCP - General Family Medicine 03/24/16 02/04/23 documented as of this encounter
--- OUTSIDE RECORDS SUMMARY | 2024-05-16 15:39 | XMS_ITS | Encounter Summary ---
Author Organization [facility] Address [facility] [place] [address] Care Team Providers Care Research And Development Technician Name Role Phone Winter Quiroga APRN Primary Care Provider [phone] Encounter Details Date Type Department Care Team (Late st Contact Info) Description 06/05/2021 Interpretation Only [address] [phone] Winter Quiroga APRN [address] [phone] Social History Tobacco Use Types Packs/Day Years [...] PM EDT Hospital Encounter [place] [address] Markel Borjas MD [facility] DR HEMATOLOGY [place] [address] 05/29/2024 2:00 PM EDT - 05/29/2024 2:43 PM EDT Surgery [place] [address] Markel Borjas MD [facility] DR HEMATOLOGY [place] [address] (OSC MSURG) BONE MARROW BIOPSY AND ASPIRATION; DIAGNOSTIC (WRVU 1.44) 06/23/2024 2:00 PM EST Office Visit Hematology [place] [phone] Markel Borjas MD [facility] DR HEMATOLOGY [place] [address] 03/01/2025 4:15 PM EDT Office Visit Dermatology at [place] [address] [place] [phone] Marek Bonilla MD [address], [place] [address] Scheduled Procedures Name Priority Associated [...] O RAD ADMITDTTM RAD PT RAD INFO [id number]^E VERETT^WINTER ^E RAD EXAM DESC XDXAC^DEXA SCAN [...] ? Electronically signed by: Rocael Villatoro MD, [facility] ([phone]), at 06/05/2021 12:00 PM Narrative 06/05/2021 12:00 [...] medicare coordinator that requested your imaging first. Winter Quiroga APRN IMGerman DEXA ORDERABLES documented in this encounter Visit Diagnoses Not on filedocumented in this encounter Care Teams Research And Development Technician Relationship Specialty Start Date End Date Winter Quiroga APRN PCP - General Family Medicine 03/24/16 02/04/23 documented as of this encounter
--- OUTSIDE RECORDS SUMMARY | 2024-05-16 15:39 | XMS_ITS | Encounter Summary ---
[place] [address] Care Team Providers Care Hog Ribber Name Role Phone Junaid Deborah Shields APRN Primary Care Provider [phone] Reason for Visit * Reason Comments Follow-up Encounter Details Date Type Department Care Team (Late st Contact Info) Description 01/10/2021 4:30 PM EDT Office Visit Dermatology at [place] [address] [place] [phone] Marek Bonilla MD [address] DERMATOLOGY [place], [place] [phone] Rosacea Social History Tobacco Use Types Packs/Day [...] cutaneous and ocular 2. Previously told by day light relief operator that she had corneal tears from [...] 3 refills. Will call this in her [facility] pharmacy in [place] 3. Continue metronidazole 0.75% gel applying once [...] PM EDT Hospital Encounter Outpatient [place] [address] Markel Borjas MD [facility] [address] [place] [address] 05/29/2024 2:00 PM EDT - 05/29/2024 2:43 PM EDT Surgery Outpatient [place] [phone] Markel Borjas MD [facility] [address] [place] [address] (OSC MSURG) BONE MARROW BIOPSY AND ASPIRATION; DIAGNOSTIC (WRVU 1.44) 06/23/2024 2:00 PM EST Office Visit [place] [address] Markel Borjas MD [facility] [address] [place] [address] 03/01/2025 4:15 PM EDT Office Visit Dermatology at [place] [address] [place] [address] Marek Bonilla MD [address], [place] [address] Scheduled Procedures Name Priority Associated Diagnoses Date/Ti me (OSC MSURG) BONE MARROW BIOPSY AND ASPIRATION; DIAGNOSTIC (WRVU 1.44) Anemia, in pt with longstanding neutropenia 05/29/2024 2:00 PM EDT documented as of this encounter Visit Diagnoses Diagnosis Rosacea documented in this encounter Care Teams Hog Ribber Relationship Specialty Start Date End Date Deborah Quiroga, SINKER WINDER PCP - General Family Medicine 03/24/16 02/04/23 documented as of this encounter
--- OUTSIDE RECORDS SUMMARY | 2024-05-16 15:39 | XMS_ITS | Encounter Summary ---
Author Organization [facility] Address [facility] [place] [address] Care Team Providers Care Board Liner Operator Name Role Phone Deborah Quiroga APRN Primary Care Provider [phone] Encounter Details Date Type Department Care Team (Latest Contact Info) Description 07/03/2022 12:28 PM EST - 07/03/2022 1:35 PM EST Hospital Encounter Hematology [place] [address] Chronic idiopathic neutropenia Discharge Disposition: Home Social [...] by mouth once as needed. Before dental dilTIAZem CD (Cardizem CD) 180 mg Capsule, [...] PM EDT Hospital Encounter [place] [address] Markel Borjas MD [facility] [address] HEMATOLOGY [place] [address] 05/29/2024 2:00 PM EDT - 05/29/2024 2:43 PM EDT Surgery [place] [address] Markel Borjas MD [facility] DR HEMATOLOGY [place] [address] (OSC MSURG) BONE MARROW BIOPSY AND ASPIRATION; DIAGNOSTIC (WRVU 1.44) 06/23/2024 2:00 PM EST Office Visit [place]ology [place] [address] Markel Borjas MD [facility] DR HEMATOLOGY [place] [address] 03/01/2025 4:15 PM EDT Office Visit Dermatology at [place] [address] [place] [phone] Marek Bonilla MD [address], [place] [address] Scheduled Procedures Name Priority Associated Diagnoses Date/Ti [...] 12:40 PM EST) Neutrophil % 72.9 % [facility] Neutrophil Absolute 2.61 1.70 - 6.10 x10(3)/mc L [facility] Lymph % 18.4 % [facility] Lymphocytes Abs 0.7(L) 0.9 - 3.2 x10(3)/mc L [facility] Monocyte % 8.4 % [facility] Monocyte Abs 0.3 0.3 - 0.9 x10(3)/mc L [facility] Eos % 0.0 % [facility] Eosinophils Abs 0.0 0.0 - 0.4 x10(3)/mc L [facility] Basophil % 0.3 % [facility] Baso Absolute 0.0 0.0 - 0.1 x10(3)/[facility] Immature Gran % 0.00 % [facility] Comment: Immature granulocytes(IG's)percentage and absolute count will include metamyelocytes, myelocytes, and promyelocytes. Blood smears from CBCs yielding IG's will be scanned manually for concordance. If this scan disagrees with the automated IG or if promyelocytes are noted, a manual differential will be performed. Immature Gran Absolute 0.00 0.00 - 0.04 x10(3)/[facility] Blood 07/03/2022 12:4 0 PM EST 07/03/2022 1:03 PM EST Narrative Resulting Agency Comment Spec In Lab Markel Borjas MD HEMATOLOGY ORDERAB LES Performing Organization Address City/State/[facility] Co de Phone Number [facility] [place] [address] * (ABNORMAL) Hemogram (07/03/2022 12:40 PM EST) White Blood Cell 3.6(L) 4.0 - 9.5 x10(3)/[facility] Red Blood Cell 3.61(L) 4.00 - 5.21 x10(6)/[facility] Hemoglobin 11.7 11.7 - 15.5 g/dL [facility] Hematocrit 34.5(L) 35.7 - 45.8 % [facility] Mean Cell Volume 95.6(H) 82.6 - 94.4 fL [facility] Mean Cell Hemoglobin 32.4(H) 27.1 - 32.0 pg [facility] Mean Cell Hemoglobin Concentration 33.9 31.7 - 35.0 g/dL [facility] Platelet 171 145 - 357 x10(3)/[facility] RDW Standard Deviation 40.5 37.0 - 46.0 fL [facility] RDW coefficient of variation 11.5 11.5 - 14.1 % [facility] Mean Platelet Volume 9.2 7.6 - 12.9 fL [facility] NRBC% auto 0.0 % [facility] NRBC Absolute 0.000 0.000 - 0.000 x10(3)/mc L [facility] Blood 07/03/2022 12:4 0 PM EST 07/03/2022 1:03 PM EST Narrative Resulting Agency Comment Spec In Lab Markel Borjas MD HEMATOLOGY ORDERAB LES [facility] [place] [address] * (ABNORMAL) Comprehensive metabolic panel (non-fasting) (07/03/2022 12:40 PM EST) Glucose 92 65 - 199 mg/dL [facility] Comment:Diabetes: >=200 mg/d L plus symptoms Blood Urea Nitrogen 22(H) 8 - 18 mg/dL [facility] [...] mmol/L [facility] Carbon Dioxide 23 22 - 31 mmol/L [facility] Anion Gap 11 5 - 15 mmol/L [facility] Calcium 10.1 8.5 - 10.5 mg/dL [facility] Protein, Total 7.6 6.1 - 8.0 g/dL [facility] Albumin 4.1 3.2 - 5.2 g/dL [facility] Aspartate Aminotransferase 25 0 - 30 unit/L [facility] Alanine Aminotransferase 14 0 - 30 unit/L [facility] Alkaline Phosphatase 80 35 - 105 unit/L [facility] Bilirubin, Total 0.3 0.2 - 1.3 mg/dL [facility] Est Glomerular Filtration Rate 81 >=60 mL/min/1. 73 m?? [facility] [...] CHEMISTRY ORDERABL ES [facility] [place] [address] documented in this encounter Visit Diagnoses Diagnosis Chronic idiopathic neutropenia Other neutropenia documented in this encounter Care Teams Board Liner Operator Relationship Specialty Start Date End Date Deborah Quiroga APRN PCP - General Family Medicine 03/24/16 02/04/23 documented as of this encounter
--- OUTSIDE RECORDS SUMMARY | 2024-05-16 15:39 | XMS_ITS | Encounter Summary ---
Author Organization [facility] Address [facility] [place] [address] Care Team Providers Care Stitch Bonding Machine Drawer In Name Role Phone Deborah Quiroga APRN Primary Care Provider [phone] Encounter Details Date Type Department Care Team (Late st Contact Info) Description 03/01/2020 11:30 AM EDT Office Visit Hematology [place] [phone] Patrick Borjas MD [facility] DR HEMATOLOGY [place] [address] Neutropenia, unspecified type Social History Tobacco Use [...] 03/01/2020 11:30 AM EDT Hematology Outpatient Clinic [facility] Hematology Outpatient Consult Note CC: [...] TOUCH PREP, CLOT SECTION, CORE ??BIOPSY); [OSR# [id number], COLLECTED 06/23/2016, 19 SLIDES]: ?1. 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 Extremities: No edema. Labs: Hgb= 12.4 Fqsd=848 ANC= 2.5 Imaging As above - reviewed [...] PM EDT Hospital Encounter [place] [address] Patrick Borjas MD [facility] DR HEMATOLOGY [place] [address] 05/29/2024 2:00 PM EDT - 05/29/2024 2:43 PM EDT Surgery [place] [address] Patrick Borjas MD [facility] DR [place] [address] (OSC MSURG) BONE MARROW BIOPSY AND ASPIRATION; DIAGNOSTIC (WRVU 1.44) 06/23/2024 2:00 PM EST Office Visit Hematology [place] [address] Patrick Borjas MD [facility] DR HEMAT[place]Y [place] [address] 03/01/2025 4:15 PM EDT Office Visit Dermatology at [place] [address] [place] [address] Marek Bonilla MD [address] [place] [address] Scheduled Procedures Name Priority Associated Diagnoses Date/Ti me ([facility] MSURG) BONE MARROW BIOPSY AND ASPIRATION; DIAGNOSTIC (WRVU 1.44) Anemia, in pt with longstanding neutropenia 05/29/2024 2:00 PM EDT documented as of this encounter Visit Diagnoses Diagnosis Neutropenia, unspecified type documented in this encounter Care Teams Stitch Bonding Machine Drawer In Relationship Specialty Start Date End Date Deborah Quiroga, ANURAG PCP - General Family Medicine 03/24/16 02/04/23 documented as of this encounter
--- OUTSIDE RECORDS SUMMARY | 2024-05-16 15:39 | XMS_ITS | Encounter Summary ---
[place] [address] Care Team Providers Care Material Controller Name Role Phone Ashley Quirogan Cornelius ANURAG Primary Care Provider [phone] Reason for Visit * Reason Onset Date Comments Results 12/03/2016 Encounter Details Date Type Department Care Team (Late st Contact Info) Description 12/03/2016 Telephone Hematology [place] [address] Yudith Valentine RN Results Social [...] EDT RN received call from Maddy at [facility] reporting critical WBC at 1.61, and ANC of 0.5. She will fax the full results to this office for clinical review nurse notified DR Borjas of above results documented in this encounter Plan of Treatment Upcoming Encounters Date Type Department Care Team (Late st Contact Info) Description 05/29/2024 2:00 PM EDT Hospital Encounter [place] [address] Markel Borjas MD [facility] [address] HEMATOLOGY [place] [address] 05/29/2024 2:00 PM EDT - 05/29/2024 2:43 PM EDT Surgery [place] [address] Markel Borjas MD [facility] [address] HEMATOLOGY [place] [address] (OSC MSURG) BONE MARROW BIOPSY AND ASPIRATION; DIAGNOSTIC (WRVU 1.44) 06/23/2024 2:00 PM EST Office Visit Hematology [place] [address] Markel Borjas MD [facility] [address] HEMATOLOGY [place] [address] 03/01/2025 4:15 PM EDT Office Visit Dermatology at [place] [address] [facility] [place] [address] Marek Bonilla MD [address] [place] [address] Scheduled Procedures Name Priority Associated Diagnoses Date/Ti me (OSC MSURG) BONE MARROW BIOPSY AND ASPIRATION; DIAGNOSTIC (WRVU 1.44) Anemia, in pt with longstanding neutropenia 05/29/2024 2:00 PM EDT documented as of this encounter Visit Diagnoses Not on filedocumented in this encounter Care Teams Material Controller Relationship Specialty Start Date End Date Deborah Quiroga APRN PCP - General Family Medicine 03/24/16 02/04/23 documented as of this encounter
--- OUTSIDE RECORDS SUMMARY | 2024-05-16 15:39 | XMS_ITS | Encounter Summary ---
[place] [address] Care Team Providers Care Police Sergeant Precinct Name Role Phone Deborah Quiroga APRN Primary Care Provider [phone] Reason for Referral * Consultation (Routine) - Closed Specialty Diagnoses / Procedures Referred By Contac t Referred To Contact Rheumatology Diagnoses Positive FRANCISCO (antinuclear antibody) Arthralgia, unspecified joint Sandy Wu APRN [address] [place] [address] [facility] Rheumatology [address] [place] [phone] Referral ID Status Reason Start Date Expiration Date V isits Requested Visits Authorized [id number] Closed Consult, Test & Treat PCP Updated and/or Approved 01/01/2022 01/01/2023 6 6 Encounter Details Date Type Department Care Team (Latest Contact Info) Description 01/01/2022 Transcribe Orders eDH Incoming Referrals [phone] Sandy Wu APRN [address] [place], [place] [id number] Positive FRANCISCO (antinuclear antibody); Arthralgia, unspecified joint [...] PM EDT Hospital Encounter Outpatient [place] [address] Markel Borjas MD [facility] [address] [place] [address] 05/29/2024 2:00 PM EDT - 05/29/2024 2:43 PM EDT Surgery Outpatient [place] [address] Markel Borjas MD [facility] [place] [address] (OSC MSURG) BONE MARROW BIOPSY AND ASPIRATION; DIAGNOSTIC (WRVU 1.44) 06/23/2024 2:00 PM EST Office Visit Hematology [place] [phone] Markel Borjas MD [facility] HEMATOLOGY [place] [address] 03/01/2025 4:15 PM EDT Office Visit Dermatology at [employer] [address] [place] [phone] Marek Bonilla MD [address] [place] [address] Scheduled Procedures Name Priority Associated [...] joint documented in this encounter Care Teams Police Sergeant Precinct Relationship Specialty Start Date End Date Deborah Quiroga, VAULT MANAGER PCP - General Family Medicine 03/24/16 02/04/23 documented as of this encounter
--- OUTSIDE RECORDS SUMMARY | 2024-05-16 15:39 | XMS_ITS | Encounter Summary ---
Author Organization [facility] [place] [address] Care Team Providers Care Spray Stainer Name Role Phone Deborah Quiroga APRN Primary Care Provider [phone] Reason for Referral * Consultation (Routine) - Closed Specialty Diagnoses / Procedures Referred By Crispin maxwell Referred To Contact Neurology Diagnoses Polyneuropathy Deborah Quiroga APRN [address] [place] [address] [facility] Neurology [address] [place] [phone] Referral ID Status Reason Start Date Expiration Date V isits Requested Visits Authorized [id number] Closed Consult, Test & Treat 10/29/2022 10/29/2023 1 1 Encounter Details Date Type Department Care Team (Latest Contact Info) Description 10/29/2022 Transcribe Orders eDH Incoming Referrals [phone] Deborah Quiroga APRN [address] [place] [address] Polyneuropathy (Primary Dx) Social History [...] PM EDT Hospital Encounter Outpatient [place] [address] Markel Borjas MD [facility] [address] [place] [address] 05/29/2024 2:00 PM EDT - 05/29/2024 2:43 PM EDT Surgery Outpatient [place] [address] Markel Borjas MD [facility] [address] [place] [address] (OSC MSURG) BONE MARROW BIOPSY AND ASPIRATION; DIAGNOSTIC (WRVU 1.44) 06/23/2024 2:00 PM EST Office Visit Hematology [place] [address] Markel Borjas MD [facility] [address] [place] [address] 03/01/2025 4:15 PM EDT Office Visit Dermatology at [place] [address] [place] [address] Marek Bonilla MD [address], [place] [address] Scheduled Procedures Name Priority Associated Diagnoses Date/Ti [...] neuropathy documented in this encounter Care Teams Spray Stainer Relationship Specialty Start Date End Date Deborah Quiroga APRN PCP - General Family Medicine 03/24/16 02/04/23 documented as of this encounter
--- OUTSIDE RECORDS SUMMARY | 2024-05-16 15:39 | XMS_ITS | Encounter Summary ---
Author Organization [facility] Address [facility] [place] [address] Care Team Providers Care Rabbler Name Role Phone Junaid Deborah Shields APRN Primary Care Provider [phone] Encounter Details Date Type Department Care Team (Latest Contact Info) Description 06/22/2022 10:00 AM EST Office [place] [address] Raymond Loredo MD [facility] [place] [address] Raynaud's phenomenon without gangrene; Positive FRANCISCO (antinuclear [...] locally or here at [facility] that the current time is [...] Dr. Rogers here at [facility]. In addition to painful dysesthesias in her [...] over radiocarpal or ulnocarpal joints. Hands: Normal architect manager and claw. SJC/TJC 0/0. Knees: Decreased [...] PM EDT Hospital Encounter [place] [address] Markel Borjas MD [facility] [place] [address] 05/29/2024 2:00 PM EDT - 05/29/2024 2:43 PM EDT Surgery [place] [address] Markel Borjas MD [facility] [place] [address] (OSC MSURG) BONE MARROW BIOPSY AND ASPIRATION; DIAGNOSTIC (WRVU 1.44) 06/23/2024 2:00 PM EST Office Visit H[place]ology [place] [address] Markel Borjas MD [facility] [place] [address] 03/01/2025 4:15 PM EDT Office Visit Dermatology at [place] [address] [place] [address] Marek Bonilla MD [address] [facility], [place] [address] Scheduled Procedures Name Priority Associated Diagnoses Date/Ti [...] radiculopathy documented in this encounter Care Teams Rabbler Relationship Specialty Start Date End Date Deborah Quiroga, PHP DEVELOPER PCP - General Family Medicine 03/24/16 02/04/23 documented as of this encounter
--- OUTSIDE RECORDS SUMMARY | 2024-05-16 15:39 | XMS_ITS | Encounter Summary ---
Author Organization [facility] [place] [address] Care Team Providers Care Passenger Rate Clerk Name Role Phone Deborah Quiroga ANURAG Primary Care Provider [phone] Encounter Details Date Type Department Care Team (Late st Contact Info) Description 06/18/2017 External Results Hematology [place] [address] Alexandrea Greenwood RN Neutropenia, unspecified type Social [...] PM EDT Hospital Encounter Outpatient [place] [address] Markel Borjas MD [facility] [address] [place] [address] 05/29/2024 2:00 PM EDT - 05/29/2024 2:43 PM EDT Surgery Outpatient [place] [address] Markel Borjas MD [facility] [address] [place] [address] (OSC MSURG) BONE MARROW BIOPSY AND ASPIRATION; DIAGNOSTIC (WRVU 1.44) 06/23/2024 2:00 PM EST Office Visit [place]ology [place] [address] Markel Borjas MD [facility] [place] [address] 03/01/2025 4:15 PM EDT Office Visit Dermatology at [place] [address] [facility] [place] [address] Marek Bonilla MD [address], [place] [address] Scheduled Procedures Name Priority Associated Diagnoses Date/Ti [...] MD HEMATOLOGY ORDERAB LES Performing Organization Address City/[facility] Co de Phone Number EXTERNAL LAB documented in this encounter Visit Diagnoses Diagnosis Neutropenia, unspecified type documented in this encounter Care Teams Passenger Rate Clerk Relationship Specialty Start Date End Date Deborah Quiroga, BANANA HANDLER PCP - General Family Medicine 03/24/16 02/04/23 documented as of this encounter
--- OUTSIDE RECORDS SUMMARY | 2024-05-16 15:39 | XMS_ITS | Encounter Summary ---
Author Organization [facility] Erika ló[place] [address] Care Team Providers Care Vegetable Farming Supervisor Name Role Phone Deborah Quiroga Sylvia OSBORN Primary Care Provider [phone] Encounter Details Date Type Department Care Team (Late st Contact Info) Description 01/13/2021 Refill Dermatology at [address] [address] Taylor Malone, PIPE ORGAN TUNER AND REPAIRER Social History Tobacco Use Types Packs/Day Years [...] PM EDT Hospital Encounter Outpatient [place] [address] Markel Borjas MD [facility] HEMATOLOGY [place] [address] 05/29/2024 2:00 PM EDT - 05/29/2024 2:43 PM EDT Surgery [place]patient [place] [address] Markel Borjas MD [facility] DR HEMATOLOGY [place] [address] (OSC MSURG) BONE MARROW BIOPSY AND ASPIRATION; DIAGNOSTIC (WRVU 1.44) 06/23/2024 2:00 PM EST Office Visit [place]ematology [place] [address] Markel Borjas MD [facility] DR HEMATOLOGY [place] [address] 03/01/2025 4:15 PM EDT Office Visit Dermatology at [place] [address] [place] [address] Marek Bonilla MD [address], [place] [address] Scheduled Procedures Name Priority Associated Diagnoses Date/Ti me (OSC MSURG) BONE MARROW BIOPSY AND ASPIRATION; DIAGNOSTIC (WRVU 1.44) Anemia, in pt with longstanding neutropenia 05/29/2024 2:00 PM EDT documented as of this encounter Visit Diagnoses Not on filedocumented in this encounter Care Teams Vegetable Farming Supervisor Relationship Specialty Start Date End Date Deborah Quiroga APRN PCP - General Family Medicine 03/24/16 02/04/23 documented as of this encounter
--- OUTSIDE RECORDS SUMMARY | 2024-05-16 15:39 | XMS_ITS | Encounter Summary ---
Author Organization [facility] [place] [place] [address] Care Team Providers Care Director Of Student Financial Aid Name Role Phone Ashley Quirogazac Shields APRN Primary Care Provider [phone] Encounter Details Date Type Department Care Team (Late st Contact Info) Description 11/02/2022 Orders [place] [address] Emily Lyons PA [facility] [place] [address] Aortic valve stenosis, etiology of cardiac valve [...] PM EDT Hospital Encounter Outpatient [place] [address] Markel Borjas MD [facility] [place] [address] 05/29/2024 2:00 PM EDT - 05/29/2024 2:43 PM EDT Surgery [place]patient [place] [address] Markel Borjas MD [facility] [address] [place] [address] (OSC MSURG) BONE MARROW BIOPSY AND ASPIRATION; DIAGNOSTIC (WRVU 1.44) 06/23/2024 2:00 PM EST Office Visit [place]ology [place] [address] Markel Borjas MD [facility] [address] [place] [address] 03/01/2025 4:15 PM EDT Office Visit Dermatology at [place] [address] [facility] [place] [address] Marek Bonilla MD [address], [place] A DERMATOLOGY [place], [place] [address] Scheduled Procedures Name Priority Associated Diagnoses Date/Ti me (OSC MSURG) BONE MARROW BIOPSY AND ASPIRATION; DIAGNOSTIC (WRVU 1.44) Anemia, in pt with longstanding neutropenia 05/29/2024 2:00 PM EDT documented as of this encounter Visit Diagnoses Diagnosis Aortic valve stenosis, etiology of cardiac valve disease unspecified documented in this encounter Care Teams Director Of Student Financial Aid Relationship Specialty Start Date End Date Deborah Quiroga APRN PCP - General Family Medicine 03/24/16 02/04/23 documented as of this encounter
--- OUTSIDE RECORDS SUMMARY | 2024-05-16 15:39 | XMS_ITS | Encounter Summary ---
Author Organization [facility] Address [facility] [place] [address] Care Team Providers Care Manager Ambulatory Name Role Phone Ashley Quirogazac Shields APRN Primary Care Provider [phone] Reason for Referral * Consultation (Routine) - Closed Specialty Diagnoses / Procedures Referred By Contac t Referred To Contact Neurology Diagnoses Neck pain Popeye Rogers MD [facility] [address] Kyra Haas MD [facility] [address] [address] Referral ID Status Reason Start Date Expiration Date V isits Requested Visits Authorized [id number] Closed Consult, Test & Treat 06/29/2022 06/29/2023 1 1 Reason for Visit * Reason Comments Neck Pain Weak in both arms, p ain and tingling in arms and hands Encounter Details Date Type Department Care Team (Late st Contact Info) Description 06/29/2022 10:20 AM EST Office Visit [place] [address] Popeye Rogers MD [facility] [place] [address] Neck pain Social History Tobacco Use Types [...] have EMG and nerve conduction studies in [employer] that showed carpal tunnel syndrome. I do not have a copy of that report. documented in this encounter Plan of Treatment Upcoming Encounters Date Type Department Care Team (Late st Contact Info) Description 05/29/2024 2:00 PM EDT Hospital Encounter [place] [address] Markel Borjas MD [facility] DR HEMATOLOGY [place] [address] 05/29/2024 2:00 PM EDT - 05/29/2024 2:43 PM EDT Surgery [place] [address] Markel Borjas MD [facility] DR HEMATOLOGY [place] [address] (OSC MSURG) BONE MARROW BIOPSY AND ASPIRATION; DIAGNOSTIC (WRVU 1.44) 06/23/2024 2:00 PM EST Office Visit Hematology [place] [address] Markel Borjas MD [facility] DR HEMATOLOGY [place] [address] 03/01/2025 4:15 PM EDT Office Visit Dermatology at [address] [place] [address] Marek Bonilla MD [address] [place] [address] RD, [place] [address] Scheduled Procedures Name Priority Associated Diagnoses Date/Ti [...] documented in this encounter Care Teams Manager Ambulatory Relationship Specialty Start Date End Date Deborah Quiroga, RESIDENT ASSISTANT PCP - General Family Medicine 03/24/16 02/04/23 documented as of this encounter
--- OUTSIDE RECORDS SUMMARY | 2024-05-16 15:39 | XMS_ITS | Encounter Summary ---
Author Organization [facility] [place] [address] Care Team Providers Care Contact Lens Cutter Name Role Phone Deborah Quiroga ANURAG Primary Care Provider [phone] Encounter Details Date Type Department Care Team (Late st Contact Info) Description 07/21/2017 Orders Only [place]ematology [place] [address] Alexandrea Greenwood RN Other neutropenia Social History [...] PM EDT Hospital Encounter Outpatient [place] [address] Markel Borjas MD [facility] [place] [address] 05/29/2024 2:00 PM EDT - 05/29/2024 2:43 PM EDT Surgery Outpatient [place] [address] Markel Borjas MD [facility] DR [place] [address] (OSC MSURG) BONE MARROW BIOPSY AND ASPIRATION; DIAGNOSTIC (WRVU 1.44) 06/23/2024 2:00 PM EST Office Visit Hematology and Oncology at [facility] [place] [address] Markel Borjas MD [facility] DR [place] [address] 03/01/2025 4:15 PM EDT Office Visit Dermatology at [place] [address] [place] [address] Marek Bonilla MD [address], [place] [address] Scheduled Procedures Name Priority Associated Diagnoses Date/Ti me (OSC MSURG) BONE MARROW BIOPSY AND ASPIRATION; DIAGNOSTIC (WRVU 1.44) Anemia, in pt with longstanding neutropenia 05/29/2024 2:00 PM EDT documented as of this encounter Visit Diagnoses Diagnosis Other neutropenia documented in this encounter Care Teams Contact Lens Cutter Relationship Specialty Start Date End Date Deborah Quiroga APRN PCP - General Family Medicine 03/24/16 02/04/23 documented as of this encounter
--- OUTSIDE RECORDS SUMMARY | 2024-05-16 15:39 | XMS_ITS | Encounter Summary ---
[place] [address] Care Team Providers Care Armature And Rotor Winder Name Role Phone Deborah Quiroga ANURAG Primary Care Provider [phone] Encounter Details Date Type Department Care Team (Late st Contact Info) Description 02/07/2020 Telephone Hematology [place] [address] Ellen Rios RN Social History Tobacco Use [...] 02/07/2020 12:59 PM EDT Message received from amusement park entertainer: Injection/Infusion Referral Services to be provided for pt are: CBC only at [facility]- Pt will go by 02/27 Orders faxed to [phone]). Spoke with pt. She will call [facility] directly to schedule a time that works for her. documented in this encounter Plan of Treatment Upcoming Encounters Date Type Department Care Team (Late st Contact Info) Description 05/29/2024 2:00 PM EDT Hospital Encounter [place]patient [place] [address] Markel Borjas MD [facility] [address] [place] [address] 05/29/2024 2:00 PM EDT - 05/29/2024 2:43 PM EDT Surgery [place]patient [place] [address] Markel Borjas MD [facility] [address] [place] [address] (OSC MSURG) BONE MARROW BIOPSY AND ASPIRATION; DIAGNOSTIC (WRVU 1.44) 06/23/2024 2:00 PM EST Office Visit Hematology [place] [address] Markel Borjas MD [facility] [address] [place] [address] 03/01/2025 4:15 PM EDT Office Visit Dermatology at [place] [address] [place] [address] Marek Bonilla MD [address], [place] [address] Scheduled Procedures Name Priority Associated Diagnoses Date/Ti me (OSC MSURG) BONE MARROW BIOPSY AND ASPIRATION; DIAGNOSTIC (WRVU 1.44) Anemia, in pt with longstanding neutropenia 05/29/2024 2:00 PM EDT documented as of this encounter Visit Diagnoses Not on filedocumented in this encounter Care Teams Armature And Rotor Winder Relationship Specialty Start Date End Date Deborah Quiroga APRN PCP - General Family Medicine 03/24/16 02/04/23 documented as of this encounter
--- OUTSIDE RECORDS SUMMARY | 2024-05-16 15:39 | XMS_ITS | Encounter Summary ---
Author Organization [facility] Address [facility] [place] [address] Care Team Providers Care Finance Attorney Name Role Phone Winter Quiroga APRN Primary Care Provider [phone] Encounter Details Date Type Department Care Team (Late st Contact Info) Description 06/05/2021 Interpretation Only [address] [address] Winter Quiroga APRN [address] [phone] Social History Tobacco Use Types Packs/Day Years [...] PM EDT Hospital Encounter [place]patient [place] [address] Markel Borjas MD [facility] DR [place] [address] 05/29/2024 2:00 PM EDT - 05/29/2024 2:43 PM EDT Surgery [place] [address] Markel Borjas MD [facility] DR [place] [address] (OSC MSURG) BONE MARROW BIOPSY AND ASPIRATION; DIAGNOSTIC (WRVU 1.44) 06/23/2024 2:00 PM EST Office Visit Hematology [place] [address] Markel Borjas MD [facility] DR [place] [address] 03/01/2025 4:15 PM EDT Office Visit Dermatology at [place] [address] [place] [address] Marek Bonilla MD [address], [place] [address] Scheduled Procedures Name Priority Associated Diagnoses Date/Ti [...] RAD ADMITDTTM DH RAD PT RAD INFO [id number]^EV ERETT^WINTER^E RAD EXAM DESC MADDSC^SCREEN MAMMO BL INCLUDES [...] have questions please contact the health healthcare administrator that requested your imaging first. ? Electronically signed by: Rocael Villatoro MD, [facility] ([phone]), at 06/05/2021 1:27 PM Narrative 06/05/2021 1:27 [...] who have questions please contactthe health healthcare administrator that requested your imaging first. Electronically signed by: Rocael Villatoro MD, [facility]([phone]), at 06/05/2021 1:27 PM Winter Quiroga RETAIL CASHIER ASSOCIATE IMG MAMMO ORDERABLE S documented in this encounter Visit Diagnoses Not on filedocumented in this encounter Care Teams Finance Attorney Relationship Specialty Start Date End Date Winter Quiroga APRN PCP - General Family Medicine 03/24/16 02/04/23 documented as of this encounter
--- OUTSIDE RECORDS SUMMARY | 2024-05-16 15:39 | XMS_ITS | Encounter Summary ---
[place] [address] Care Team Providers Care Field Service Technician Name Role Phone Ashley Quirogan Cornelius ANURAG Primary Care Provider [phone] Reason for Visit * Reason Onset Date Comments Medical Care Coordination 07/27/2017 Encounter Details Date Type Department Care Team (Late st Contact Info) Description 07/27/2017 Telephone Hematology [place] [address] Alexandrea Greenwood RN Medical Care Coordination Social [...] 07/27/2017 12:25 PM EST Message received from psychiatric secretary: Injection/Infusion Referral Call placed to [facility] @ [phone] Spoke w/ ENVIRONMENTAL PROFESSIONAL Services to be provided for pt are: CBC/CMP DONE Q6 MONTHS X2 STARTING NOVEMBER 2017 TECH confirmed they would provide services to pt - I CALLED PT, LM. Pt orders faxed to [phone] documented in this encounter Plan of Treatment Upcoming Encounters Date Type Department Care Team (Late st Contact Info) Description 05/29/2024 2:00 PM EDT Hospital Encounter [place]patient [place] [address] Markel Borjas MD [facility] DR [place] [address] 05/29/2024 2:00 PM EDT - 05/29/2024 2:43 PM EDT Surgery [place] [address] Markel Borjas MD [facility] DR [place] [address] (OSC MSURG) BONE MARROW BIOPSY AND ASPIRATION; DIAGNOSTIC (WRVU 1.44) 06/23/2024 2:00 PM EST Office Visit Hematology [place] [address] Markel Borjas MD [facility] DR [place] [address] 03/01/2025 4:15 PM EDT Office Visit Dermatology at [address] [phone] Marek Bonilla MD [address] [place] [address] RD, [place] [address] Scheduled Procedures Name Priority Associated Diagnoses Date/Ti me (OSC MSURG) BONE MARROW BIOPSY AND ASPIRATION; DIAGNOSTIC (WRVU 1.44) Anemia, in pt with longstanding neutropenia 05/29/2024 2:00 PM EDT documented as of this encounter Visit Diagnoses Not on filedocumented in this encounter Care Teams Field Service Technician Relationship Specialty Start Date End Date Deborah Quiroga APRN PCP - General Family Medicine 03/24/16 02/04/23 documented as of this encounter
--- OUTSIDE RECORDS SUMMARY | 2024-05-16 15:39 | XMS_ITS | Encounter Summary ---
Author Organization [facility] Erika lópez[place] [address] Care Team Providers Care Toaster Operator Name Role Phone Deborah Quiroga Sylvia OSBORN Primary Care Provider [phone] Encounter Details Date Type Department Care Team (Late st Contact Info) Description 11/11/2020 Refill Dermatology at [address] [address] Taylor Malone, SOCIAL SERVICE MANAGER Social History Tobacco Use Types Packs/Day Years [...] PM EDT Hospital Encounter [place] [address] Markel Borjas MD [facility] [place] [address] 05/29/2024 2:00 PM EDT - 05/29/2024 2:43 PM EDT Surgery [place] [address] Markel Borjas MD [facility] DR [place] [address] (OSC MSURG) BONE MARROW BIOPSY AND ASPIRATION; DIAGNOSTIC (WRVU 1.44) 06/23/2024 2:00 PM EST Office Visit Hematology [place] [address] Markel Borjas MD [facility] DR [place] [address] 03/01/2025 4:15 PM EDT Office Visit Dermatology at [place] [address] [place] [address] Marek Bonilla MD [address], [place] [address] Scheduled Procedures Name Priority Associated Diagnoses Date/Ti me (OSC MSURG) BONE MARROW BIOPSY AND ASPIRATION; DIAGNOSTIC (WRVU 1.44) Anemia, in pt with longstanding neutropenia 05/29/2024 2:00 PM EDT documented as of this encounter Visit Diagnoses Not on filedocumented in this encounter Care Teams Toaster Operator Relationship Specialty Start Date End Date Deborah Quiroga APRN PCP - General Family Medicine 03/24/16 02/04/23 documented as of this encounter
--- OUTSIDE RECORDS SUMMARY | 2024-05-16 15:39 | XMS_ITS | Encounter Summary ---
[place] [address] Care Team Providers Care Rn Complex Care Name Role Phone Ashley Quirogan Cornelius ANURAG Primary Care Provider [phone] Reason for Visit * Reason Comments Acrochordon Rosacea Encounter Details Date Type Department Care Team (Late st Contact Info) Description 12/05/2020 3:00 PM EDT Office Visit Dermatology at [address] [address] Marek Bonilla MD [address] [facility], [place] [address] Inflamed acrochordon Social History Tobacco Use Types [...] another month for repeat check. CC: Deborah Junaid DECISION UNIT RN documented in this encounter Plan of Treatment Upcoming Encounters Date Type Department Care Team (Late st Contact Info) Description 05/29/2024 2:00 PM EDT Hospital Encounter Outpatient [place] [address] Markel Borjas MD [facility] DR HEMATOLOGY [place] [address] 05/29/2024 2:00 PM EDT - 05/29/2024 2:43 PM EDT Surgery Outpatient [place] [address] Markel Borjas MD [facility] DR HEMATOLOGY [place] [address] (OSC MSURG) BONE MARROW BIOPSY AND ASPIRATION; DIAGNOSTIC (WRVU 1.44) 06/23/2024 2:00 PM EST Office Visit Hematology [place] [address] Markel Borjas MD [facility] DR HEMATOLOGY [place] [address] 03/01/2025 4:15 PM EDT Office Visit Dermatology at [address] [place] [address] Marek Bonilla MD [address] [facility], [place] [address] Scheduled Procedures Name Priority Associated Diagnoses Date/Ti me (OSC MSURG) BONE MARROW BIOPSY AND ASPIRATION; DIAGNOSTIC (WRVU 1.44) Anemia, in pt with longstanding neutropenia 05/29/2024 2:00 PM EDT documented as of this encounter Visit Diagnoses Diagnosis Inflamed acrochordon Unspecified hypertrophic and atrophic condition of skin documented in this encounter Care Teams Rn Complex Care Relationship Specialty Start Date End Date Deborah Quiroga, DECISION UNIT RN PCP - General Family Medicine 03/24/16 02/04/23 documented as of this encounter
--- OUTSIDE RECORDS SUMMARY | 2024-05-16 15:39 | XMS_ITS | Encounter Summary ---
Author Organization [facility] [place] [address] Care Team Providers Care Shafting Cleaner Name Role Phone Junaid Deborah Shields APRN Primary Care Provider [phone] Encounter Details Date Type Department Care Team (Latest Contact Info) Description 11/09/2022 10:37 AM EDT - 11/09/2022 4:53 PM EDT Hospital [place] [address] Nitesh Escobedo MD [facility] [place] [address] Aortic valve stenosis, etiology of cardiac valve [...] Center 02/05/2023 2:30 PM Marek Bonilla MD [facility] New Medications to be Picked Up None For questions regarding this document or issues relating to this hospitalization on the Medical Service, please contact your inpatient physician through the [facility] Internal Grinding Machine Operator . Issues afterhours and on weekends will be handled by the Hospitalist staff on-call. * Attachments The following attachments cannot be sent through Care Everywhere. * Coronary Angiogram: Post-op (Nigerien) * Right Heart Catheterization: Pulmonary Artery Catheterization: Post-op (Nigerien) documented in this encounter Medications at Time [...] MD - 11/09/2022 11:20 AM EDT . [facility] Interventional Cardiology Adult Pre-Procedure H&P Update: Cardiac Catheterization Purnima Thacker [id number] 1955 Chief Complaint: BONILLA HPI: Purnima Thacker [...] Marrero MD Interventional Cardiology 11/09/22 11:43 AM [facility] Pager: [phone] documented in this encounter Plan of Treatment Upcoming Encounters Date Type Department Care Team (Late st Contact Info) Description 05/29/2024 2:00 PM EDT Hospital Encounter [place] [address] Markel Borjas MD [facility] HEMATOLOGY [place] [address] 05/29/2024 2:00 PM EDT - 05/29/2024 2:43 PM EDT Surgery [place] [address] Markel Borjas MD [facility] DR HEMATOLOGY [place] [address] (OSC MSURG) BONE MARROW BIOPSY AND ASPIRATION; DIAGNOSTIC (WRVU 1.44) 06/23/2024 2:00 PM EST Office Visit Hematology [place] [address] Markel Borjas MD [facility] DR HEMATOLOGY [place] [address] 03/01/2025 4:15 PM EDT Office Visit Dermatology at [place] [address] [facility] [place] [address] Marek Bonilla MD [address], [place] [address] Scheduled Procedures Name Priority Associated Diagnoses Date/Ti [...] & Arts W/Inj & Angio Img S&I (33130) 11/09/2022 11:51 AM EDT Aortic valve stenosis, etiology of cardiac valve disease unspecified EKG 12-LEAD Routine 11/09/2022 11:17 AM EDT Aortic valve stenosis, etiology of cardiac valve disease unspecified documented in this encounter Results * CARDIAC CATHETERIZATION (11/09/2022 1:05 PM EDT) Anatomical Region Laterality Modality Other Narrative 11/09/2022 2:01 PM EDT ?[facility] ? Cardiac Catheterization/Intervention Report ? Patient Name: Kirstie, Purnima M. ? Procedure Date: 11/09/2022 ? A #: [id number] ? Primary Physician: Nitesh Escobedo ? Case #: [id number] ? File Name: [id number] ? Catheterization Order Number: [id number] ? [facility] ? Final Report [place], [place] ? Patient Name: ? Purnima M. Kirstie ? ID#: ?[id number] ? : ?1955 ? Procedure Date: ? [...] (Bezet) 457 ms MUSE SYSTEM Calculated P Davis 44 degrees MUSE SYSTEM Calculated R Davis 33 degrees MUSE SYSTEM Calculated T Davis 30 degrees MUSE SYSTEM INTERPRETATION Sinus rhythm Occasional Premature ventricular complexes Otherwise normal ECG When compared with ECG of 21-SEP-2016 12:26, Premature ventricular complexes are now Present OR interval has decreased Nonspecific T wave abnormality has replaced inverted T waves in Inferior leads I personally reviewed the tracing and edited the fellows interpretation Confirmed by fellow MD Anitha, Carissa ([id number]) on 11/09/2022 6:17:28 PM Confirmed by Elsa [...] (Intra-Procedure), Routine 121 (Given - Provid er: Nitesh [...] MD) documented in this encounter Care Teams Shafting Cleaner Relationship Specialty Start Date End Date Deborah Quiroga, BLOOMING MILL SUPERVISOR PCP - General Family Medicine 03/24/16 02/04/23 documented as of this encounter
--- OUTSIDE RECORDS SUMMARY | 2024-05-16 15:39 | XMS_ITS | Encounter Summary ---
Author Organization [facility] [place] [address] Care Team Providers Care Weblogic Administrator Name Role Phone Junaid Deborah Shields APRN Primary Care Provider [phone] Encounter Details Date Type Department Care Team [...] PM EDT Hospital Encounter [place] [address] Markel Borjas MD [facility] DR [place] [address] 05/29/2024 2:00 PM EDT - 05/29/2024 2:43 PM EDT Surgery [place] [address] Markel Borjas MD [facility] DR [place] [address] (OSC MSURG) BONE MARROW BIOPSY AND ASPIRATION; DIAGNOSTIC (WRVU 1.44) 06/23/2024 2:00 PM EST Office Visit [place]ematology [place] [address] Markel Borjas MD [facility] DR [place] [address] 03/01/2025 4:15 PM EDT Office Visit Dermatology at [place] [address] [place] [address] Marek Bonilla MD [address] [place] [address] Scheduled Procedures Name Priority Associated Diagnoses Date/Ti me (OSC MSURG) BONE MARROW BIOPSY AND ASPIRATION; DIAGNOSTIC (WRVU 1.44) Anemia, in pt with longstanding neutropenia 05/29/2024 2:00 PM EDT documented as of this encounter Visit Diagnoses Not on filedocumented in this encounter Care Teams Weblogic Administrator Relationship Specialty Start Date End Date Deborah Quiroga, SOFTWARE BUSINESS ANALYST PCP - General Family Medicine 03/24/16 02/04/23 documented as of this encounter
--- OUTSIDE RECORDS SUMMARY | 2024-05-16 15:39 | XMS_ITS | Encounter Summary ---
Author Organization [facility] Address [facility] [place] [address] Care Team Providers Care Property Assistant Name Role Phone Junaid Deborah Shields APRN Primary Care Provider [phone] Reason for Visit * Reason Comments Schedule Office Case Pain right leg Encounter Details Date Type Department Care Team (Late st Contact Info) Description 12/11/2016 9:00 AM EDT Office Visit Hematology [place] [address] Markel Borjas MD [facility] DR HEMATOLOGY [place] [address] Neutropenia, unspecified type Social History Tobacco Use [...] AM EDT Hematology Outpatient Clinic [facility] Hematology Outpatient Consult Note CC: 60 year [...] TOUCH PREP, CLOT SECTION, CORE ??BIOPSY); [OSR# [id number], COLLECTED 06/23/2016, 19 SLIDES]: ?1. 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 Extremities: No edema. Labs: Hgb= 13 Qcyk=588 ANC= 0.5 Imaging As above - reviewed [...] PM EDT Hospital Encounter [place]patient [place] [address] Markel Borjas MD [facility] DR HEMATOLOGY [place] [address] 05/29/2024 2:00 PM EDT - 05/29/2024 2:43 PM EDT Surgery [place]patient [place] [address] Markel Borjas MD [facility] DR HEMATOLOGY [place] [address] (OSC MSURG) BONE MARROW BIOPSY AND ASPIRATION; DIAGNOSTIC (WRVU 1.44) 06/23/2024 2:00 PM EST Office Visit Hematology [place] [address] Markel Borjas MD [facility] DR HEMATOLOGY [place] [address] 03/01/2025 4:15 PM EDT Office Visit Dermatology at [place] [address] [place] [address] Marek Bonilla MD [address], [place] [address] Scheduled Procedures Name Priority Associated Diagnoses Date/Ti [...] Blood specimen (specimen) 06/11/2017 1:19 PM EST Makrel Borjas MD HEMATOLOGY ORDERAB LES EXTERNAL LAB [...] type documented in this encounter Care Teams Property Assistant Relationship Specialty Start Date End Date Deborah Quiroga, FIREWOOD CUTTER PCP - General Family Medicine 03/24/16 02/04/23 documented as of this encounter
--- OUTSIDE RECORDS SUMMARY | 2024-05-16 15:39 | XMS_ITS | Encounter Summary ---
Author Organization [facility] [place] [address] Care Team Providers Care Subway Operator Name Role Phone Ashley Quirogazac Shields APRN Primary Care Provider [phone] Encounter Details Date Type Department Care Team (Late st Contact Info) Description 02/06/2020 Orders Only Hematology [place] [address] Markel Borjas MD [facility] DR HEMATOLOGY [place] [address] Neutropenia, unspecified type Social History Tobacco Use [...] PM EDT Hospital Encounter Outpatient [place] [address] Markel Borjas MD [facility] DR HEMATOLOGY [place] [address] 05/29/2024 2:00 PM EDT - 05/29/2024 2:43 PM EDT Surgery Outpatient [place] [address] Markel Borjas MD [facility] DR HEMATOLOGY [place] [address] (OSC MSURG) BONE MARROW BIOPSY AND ASPIRATION; DIAGNOSTIC (WRVU 1.44) 06/23/2024 2:00 PM EST Office Visit [place]ematology [place] [address] Markel Borjas MD [facility] DR HEMATOLOGY [place] [address] 03/01/2025 4:15 PM EDT Office Visit Dermatology at [place] [address] [facility] [place] [address] Marek Bonilla MD [address], [place] [address] Scheduled Procedures Name Priority Associated Diagnoses Date/Ti me (OSC MSURG) BONE MARROW BIOPSY AND ASPIRATION; DIAGNOSTIC (WRVU 1.44) Anemia, in pt with longstanding neutropenia 05/29/2024 2:00 PM EDT documented as of this encounter Visit Diagnoses Diagnosis Neutropenia, unspecified type documented in this encounter Care Teams Subway Operator Relationship Specialty Start Date End Date Deborah Quiroga APRN PCP - General Family Medicine 03/24/16 02/04/23 documented as of this encounter
--- OUTSIDE RECORDS SUMMARY | 2024-05-16 15:39 | XMS_ITS | Encounter Summary ---
Author Organization [facility] Address [facility] [place] [address] Care Team Providers Care Lint Cleaner Name Role Phone Deborah Quiroga APRN Primary Care Provider [phone] Encounter Details Date Type Department Care Team (Latest Contact Info) Description 07/03/2022 1:36 PM EST - 07/03/2022 11:59 PM EST Hospital Encounter Hematology [place] [address] Discharge Disposition: Home Social History Tobacco Use [...] PM EDT Hospital Encounter [place] [address] Markel Borjas MD [facility] DR HEMATOLOGY [place] [address] 05/29/2024 2:00 PM EDT - 05/29/2024 2:43 PM EDT Surgery [place] [address] Markel Borjas MD [facility] HEMATOLOGY [place] [address] (OSC MSURG) BONE MARROW BIOPSY AND ASPIRATION; DIAGNOSTIC (WRVU 1.44) 06/23/2024 2:00 PM EST Office Visit Hematology [place] [address] Markel Borjas MD [facility] [address] HEMATOLOGY [place] [address] 03/01/2025 4:15 PM EDT Office Visit Dermatology at [place] [address] [place] [address] Marek Bonilla MD [address], [place] [address] Scheduled Procedures Name Priority Associated Diagnoses Date/Ti [...] [facility] [place] [address] * Vitamin B12 (07/03/2022 1:59 PM EST) Vitamin B12 449 232 - 1,245 pg/mL [facility] Blood Venous Draw / Unknown 07/03/2022 1:59 PM EST 07/03/2022 2:13 PM EST Narrative Resulting Agency Comment Spec In Lab Markel Borjas MD CHEMISTRY ORDERABL ES [place] [id number] documented in this encounter Visit Diagnoses Not on filedocumented in this encounter Care Teams Lint Cleaner Relationship Specialty Start Date End Date Deborah Quiroga APRN PCP - General Family Medicine 03/24/16 02/04/23 documented as of this encounter
--- OUTSIDE RECORDS SUMMARY | 2024-05-16 15:39 | XMS_ITS | Encounter Summary ---
Author Organization [facility] Address [facility] [place] [address] Care Team Providers Care Advertising Specialist Name Role Phone Junaid, Deborah Shields APRN Primary Care Provider [phone] Encounter Details Date Type Department Care Team (Late st Contact Info) Description 03/04/2020 External Results Hematology [place] [address] TherBhumi villela Social History Tobacco Use Types [...] PM EDT Hospital Encounter Outpatient [place] [address] Markel Borjas MD [facility] [place] [address] 05/29/2024 2:00 PM EDT - 05/29/2024 2:43 PM EDT Surgery Outpatient [place] [address] Markel Borjas MD [facility] [place] [address] (OSC MSURG) BONE MARROW BIOPSY AND ASPIRATION; DIAGNOSTIC (WRVU 1.44) 06/23/2024 2:00 PM EST Office Visit [place]ematology [place] [address] Markel Borjas MD [facility] DR [place] [address] 03/01/2025 4:15 PM EDT Office Visit Dermatology at [place] [address] [place] [address] Marek Bonilla MD [address], [place] [address] Scheduled Procedures Name Priority Associated Diagnoses Date/Ti [...] on filedocumented in this encounter Care Teams Advertising Specialist Relationship Specialty Start Date End Date Deborah Quiroga, ELECTROPHYSIOLOGY TECHNICIAN PCP - General Family Medicine 03/24/16 02/04/23 documented as of this encounter
--- OUTSIDE RECORDS SUMMARY | 2024-05-16 15:39 | XMS_ITS | Encounter Summary ---
Author Organization [facility] Address [facility] Erika [facility] [place] [address] Care Team Providers Care Pleater Hand Name Role Phone Deborah Quiroga APRN Primary Care Provider [phone] Reason for Visit * Consultation (Routine) - Closed Specialty Diagnoses / Procedures Referred By Contkrystle t Referred To Contact Rheumatology Diagnoses Positive FRANCISCO (antinuclear antibody) Arthralgia, unspecified joint Sandy Wu APRN [address] [place] [address] [facility] Rheumatology [address] [place] [address] Referral ID Status Reason Start Date Expiration Date V isits Requested Visits Authorized [id number] Closed Consult, Test & Treat PCP Updated and/or Approved 01/01/2022 01/01/2023 6 6 Encounter Details Date Type Department Care Team (Latest Contact Info) Description 01/20/2022 10:00 AM EDT Office [place] [address] Raymond Loredo MD [facility] [place] [address] Rosacea; Raynaud's phenomenon without gangrene; [...] radiocarpal or ulnocarpal joints. Hands: Normal director adult and claw. SJC/TJC 0/0. Hips: Full motion, [...] done locally or here at [facility] that the current time is not particularly interested it seems Raymond Loredo MD documented in this encounter Plan of Treatment Upcoming Encounters Date Type Department Care Team (Late st Contact Info) Description 05/29/2024 2:00 PM EDT Hospital Encounter [place]patient [place] [address] Markel Borjas MD [facility] DR [place] [address] 05/29/2024 2:00 PM EDT - 05/29/2024 2:43 PM EDT Surgery [place]patient [place] [address] Markel Borjas MD [facility] DR [place] [address] (OSC MSURG) BONE MARROW BIOPSY AND ASPIRATION; DIAGNOSTIC (WRVU 1.44) 06/23/2024 2:00 PM EST Office Visit Hematology [place] [address] Markel Borjas MD [facility] DR HEMATOLOGY [place] [address] 03/01/2025 4:15 PM EDT Office Visit Dermatology at [address] [place] [address] Marek Bonilla MD [address] [place] [address] Scheduled Procedures Name Priority Associated Diagnoses Date/Ti [...] syndrome documented in this encounter Care Teams Pleater Hand Relationship Specialty Start Date End Date Deborah Quiroga APRN PCP - General Family Medicine 03/24/16 02/04/23 documented as of this encounter
--- OUTSIDE RECORDS SUMMARY | 2024-05-16 15:39 | XMS_ITS | Encounter Summary ---
[place] [address] Care Team Providers Care Ammonium Sulfate Operator Name Role Phone Ashley Quirogazac Shields APRN Primary Care Provider [phone] Reason for Visit * Reason Comments Annual Exam Encounter Details Date Type Department Care Team (Late st Contact Info) Description 01/09/2022 3:15 PM EDT Office Visit Dermatology at [address] [address] Marek Bonilla MD [address] [facility] DERMATOLOGY [place], [place] [address] Rosacea Social History Tobacco Use Types Packs/Day [...] cutaneous and ocular 2. Previously told by technology teacher that she had corneal tears from [...] refills. We will call this into her [facility] pharmacy in [place] 3. Continue metronidazole 0.75% gel applying every [...] PM EDT Hospital Encounter [place] [address] Markel Borjas MD [facility] [place] [address] 05/29/2024 2:00 PM EDT - 05/29/2024 2:43 PM EDT Surgery [place] [address] Markel Borjas MD [facility] [place] [address] (OSC MSURG) BONE MARROW BIOPSY AND ASPIRATION; DIAGNOSTIC (WRVU 1.44) 06/23/2024 2:00 PM EST Office Visit Hematology [place] [address] Markel Borjas MD [facility] [place] [address] 03/01/2025 4:15 PM EDT Office Visit Dermatology at [place] [address] [place] [address] Marek Bonilla MD [address] [place] DERMATOLOGY [place], [place] [address] Scheduled Procedures Name Priority Associated Diagnoses Date/Ti me (OSC MSURG) BONE MARROW BIOPSY AND ASPIRATION; DIAGNOSTIC (WRVU 1.44) Anemia, in pt with longstanding neutropenia 05/29/2024 2:00 PM EDT documented as of this encounter Visit Diagnoses Diagnosis Rosacea documented in this encounter Care Teams Ammonium Sulfate Operator Relationship Specialty Start Date End Date Deborah Quiroga APRN PCP - General Family Medicine 03/24/16 02/04/23 documented as of this encounter
--- OUTSIDE RECORDS SUMMARY | 2024-05-16 15:39 | XMS_ITS | Encounter Summary ---
Author Organization [facility] Address [facility] [place] [address] Care Team Providers Care Operator Name Role Phone Winter Quiroga APRN Primary Care Provider [phone] Encounter Details Date Type Department Care Team (Late st Contact Info) Description 06/05/2021 Interpretation Only [address] [address] Winter Quiroga APRN [address] [phone] Social History Tobacco Use Types Packs/Day Years [...] EDT Hospital Encounter Outpatient [place] [address] Markel Borjas MD [facility] [address] [place] [address] 05/29/2024 2:00 PM EDT - 05/29/2024 2:43 PM EDT Surgery Outpatient [place] [address] Markel Borjas MD [facility] [address] [place] [address] (OSC MSURG) BONE MARROW BIOPSY AND ASPIRATION; DIAGNOSTIC (WRVU 1.44) 06/23/2024 2:00 PM EST Office Visit [place] [phone] Markel Borjas MD [facility] [address] [place] [address] 03/01/2025 4:15 PM EDT Office Visit Dermatology at [place] [address] [place] [address] Marek Bonilla MD [address], [place] [address] Scheduled Procedures Name Priority Associated Diagnoses Date/Ti [...] RAD ADMITDTTM DH RAD PT RAD INFO [id number]^EVERET T^WINTER^E DH RAD EXAM DESC MADDSCTO^BREAST SCREEN TOMOSYNTHESIS BI^RIS RAD Anatomical Region Laterality Modality Breast Bilateral [...] questions please contact the health health care marketing specialist that requested your imaging first. ? Electronically signed by: Rocael Villatoro MD, [facility] ([phone]), at 06/05/2021 1:27 PM Narrative 06/05/2021 1:27 [...] have questions please contactthe health health care marketing specialist that requested your imaging first. Electronically signed by: Rocael Villatoro MD, [facility]([phone]), at 06/05/2021 1:27 PM Winter Quiroga APRN IMG MAMMO ORDERABLE S documented in this encounter Visit Diagnoses Not on filedocumented in this encounter Care Teams Operator Relationship Specialty Start Date End Date Winter Quiroga APRN PCP - General Family Medicine 03/24/16 02/04/23 documented as of this encounter
--- OUTSIDE RECORDS SUMMARY | 2024-05-16 15:39 | XMS_ITS | Encounter Summary ---
[place] [address] Care Team Providers Care Senior Materials Scientist Name Role Phone Ashley Quirogan Cornelius ANURAG Primary Care Provider [phone] Reason for Visit * Reason Comments Skin Check Encounter Details Date Type Department Care Team (Late st Contact Info) Description 11/11/2020 10:45 AM EDT Office Visit Dermatology at [address] [place] [address] Marek Bonilla MD [address] [facility] [address], [address] DERMATOLOGY [place], [place] [phone] Rosacea; Acrochordon Social History Tobacco Use Types [...] Discussed the possibility of getting this through [employer] [facility] or from the [facility] pharmacy if necessary. She has not yet [...] EDT Hospital Encounter Outpatient [place] [address] Markel Borjas MD [facility] HEMATOLOG[place] [address] 05/29/2024 2:00 PM EDT - 05/29/2024 2:43 PM EDT Surgery Outpatient [place] [address] Markel Borjas MD [facility] HEMATOLOG[place] [address] (OSC MSURG) BONE MARROW BIOPSY AND ASPIRATION; DIAGNOSTIC (WRVU 1.44) 06/23/2024 2:00 PM EST Office Visit Hematology [place] [address] Markel Borjas MD [facility] DR HEMATOLOGY [place] [address] 03/01/2025 4:15 PM EDT Office Visit Dermatology at [place] [address] [place] [address] Marek Bonilla MD [address], [address] [place] [address] Scheduled Procedures Name Priority Associated Diagnoses Date/Ti me (OSC MSURG) BONE MARROW BIOPSY AND ASPIRATION; DIAGNOSTIC (WRVU 1.44) Anemia, in pt with longstanding neutropenia 05/29/2024 2:00 PM EDT documented as of this encounter Visit Diagnoses Diagnosis Rosacea Acrochordon Unspecified hypertrophic and atrophic condition of skin documented in this encounter Care Teams Senior Materials Scientist Relationship Specialty Start Date End Date Deborah Quiroga APRN PCP - General Family Medicine 03/24/16 02/04/23 documented as of this encounter
--- OUTSIDE RECORDS SUMMARY | 2024-05-16 15:39 | XMS_ITS | Encounter Summary ---
Author Organization [facility] [place] [address] Care Team Providers Care Roof Technician Name Role Phone Deborah Quiroga APRN Primary Care Provider [phone] Encounter Details Date Type Department Care Team (Late st Contact Info) Description 06/08/2022 Ancillary Procedure Radiology Library [place] [facility] [place] [address] Deborah Quiroga APRN [address] [place] [phone] Social History Tobacco Use Types Packs/Day [...] PM EDT Hospital Encounter [place]patient [place] [address] Markel Borjas MD [facility] HEMATOLOGY [place] [address] 05/29/2024 2:00 PM EDT - 05/29/2024 2:43 PM EDT Surgery [place] [address] Markel Borjas MD [facility] [address] HEMATOLOGY [place] [address] (OSC MSURG) BONE MARROW BIOPSY AND ASPIRATION; DIAGNOSTIC (WRVU 1.44) 06/23/2024 2:00 PM EST Office Visit [place]ematology [place] [address] Markel Borjas MD [facility] [address] HEMATOLOGY [place] [address] 03/01/2025 4:15 PM EDT Office Visit Dermatology at [place] [address] [place] [address] Marek Bonilla MD [address], [place] [address] Scheduled Procedures Name Priority Associated Diagnoses Date/Ti [...] Spine (06/08/2022 12:00 AM EST) Narrative [facility] - 06/18/2022 10:57 AM EST This exam is auto-finalizing. It's purpose is for storage only. Deborah LLAMAS FILM LIBRARY OR DERABLES [place], [place] documented in this encounter Visit Diagnoses Not on filedocumented in this encounter Care Teams Roof Technician Relationship Specialty Start Date End Date Deborah Quiroga APRN PCP - General Family Medicine 03/24/16 02/04/23 documented as of this encounter
--- OUTSIDE RECORDS SUMMARY | 2024-05-16 15:39 | XMS_ITS | Encounter Summary ---
Author Organization [facility] [place] [address] Care Team Providers Care Orthopedic Designer Name Role Phone Deborah Quiroga APRN Primary Care Provider [phone]- [phone] Encounter Details Date Type Department Care Team (Late st Contact Info) Description 06/17/2022 Ancillary Procedure Radiology Library at [facility] [place] [address] Deborah Quiroga APRN [address] [place] [phone] Social History Tobacco Use Types Packs/Day [...] PM EDT Hospital Encounter [place] [address] Markel Borjas MD [facility] HEMATOLOGY [place] [address] 05/29/2024 2:00 PM EDT - 05/29/2024 2:43 PM EDT Surgery [place] [address] Markel Borjas MD [facility] DR [place] [address] (OSC MSURG) BONE MARROW BIOPSY AND ASPIRATION; DIAGNOSTIC (WRVU 1.44) 06/23/2024 2:00 PM EST Office Visit [place] [address] Markel Borjas MD [facility] DR [place] [address] 03/01/2025 4:15 PM EDT Office Visit Dermatology at [place] [address] [place] [address] Marek Bonilla MD [address], [place] [address] Scheduled Procedures Name Priority Associated Diagnoses Date/Ti [...] MR Spine (06/17/2022 12:00 AM EST) Narrative [facility] - 06/18/2022 11:00 AM EST This exam is auto-finalizing. It's purpose is for storage only. Deborah LLAMAS FILM LIBRARY OR DERABLES [place], [place] documented in this encounter Visit Diagnoses Not on filedocumented in this encounter Care Teams Orthopedic Designer Relationship Specialty Start Date End Date Deborah Quiroga APRN PCP - General Family Medicine 03/24/16 02/04/23 documented as of this encounter
--- OUTSIDE RECORDS SUMMARY | 2024-05-16 15:39 | XMS_ITS | Encounter Summary ---
Author Organization [facility] [place] [address] Care Team Providers Care Project Superintendent Name Role Phone Junaid Deborah Shields APRN Primary Care Provider [phone] Encounter Details Date Type Department Care Team [...] PM EDT Hospital Encounter Outpatient [place] [address] Markel Borjas MD [facility] [address] HEMATOLOGY [place] [address] 05/29/2024 2:00 PM EDT - 05/29/2024 2:43 PM EDT Surgery Outpatient [place] [phone] Markel Borjas MD [facility] DR HEMATOLOGY [place] [address] (OSC MSURG) BONE MARROW BIOPSY AND ASPIRATION; DIAGNOSTIC (WRVU 1.44) 06/23/2024 2:00 PM EST Office Visit [place]ematology [place] [address] Markel Borjas MD [facility] DR HEMATOLOGY [place] [address] 03/01/2025 4:15 PM EDT Office Visit Dermatology at [place] [address] [place] [address] Marek Bonilla MD [address], [address] K[place]nie [place] [address] Scheduled Procedures Name Priority Associated Diagnoses Date/Ti me (OSC MSURG) BONE MARROW BIOPSY AND ASPIRATION; DIAGNOSTIC (WRVU 1.44) Anemia, in pt with longstanding neutropenia 05/29/2024 2:00 PM EDT documented as of this encounter Visit Diagnoses Not on filedocumented in this encounter Care Teams Project Superintendent Relationship Specialty Start Date End Date Deborah Quiroga, ELEMENTARY ASSISTANT PRINCIPAL PCP - General Family Medicine 03/24/16 02/04/23 documented as of this encounter
--- OUTSIDE RECORDS SUMMARY | 2024-05-16 15:39 | XMS_ITS | Encounter Summary ---
[place] [address] Care Team Providers Care Wellness Manager Name Role Phone Junaid, Deborah Shields APRN Primary Care Provider [phone] Encounter Details Date Type Department Care Team (Late st Contact Info) Description 10/20/2016 11:20 AM EDT Office [place] [phone] Alirio Esparza MD S/P AVR Social History [...] all of her postoperative tests done at [facility]. Her echo shows a well-seated valve. Her EF, for some reason, was read as in the 45% to 50% range. She had a normal EF to start. I think that will need to be repeated at [facility]. She has no perivalve leak. Her [...] should continue to see Dr. Burrell, her fitness center attendant at [facility]. cc: Dr. Burrell documented in this encounter Plan of Treatment Upcoming Encounters Date Type Department Care Team (Late st Contact Info) Description 05/29/2024 2:00 PM EDT Hospital Encounter Outpatient [place] [address] Markel Borjas MD [facility] DR HEMATOLOGY [place] [address] 05/29/2024 2:00 PM EDT - 05/29/2024 2:43 PM EDT Surgery Outpatient [place] [address] Markel Borjas MD [facility] DR HEMATOLOGY [place] [address] (OSC MSURG) BONE MARROW BIOPSY AND ASPIRATION; DIAGNOSTIC (WRVU 1.44) 06/23/2024 2:00 PM EST Office Visit [place] [address] Markel Borjas MD [facility] DR HEMATOLOGY [place] [address] 03/01/2025 4:15 PM EDT Office Visit Dermatology at [place] [address] [place] [address] Marek Bonilla MD [address], [place] [address] Scheduled Procedures Name Priority Associated Diagnoses Date/Ti me (OSC MSURG) BONE MARROW BIOPSY AND ASPIRATION; DIAGNOSTIC (WRVU 1.44) Anemia, in pt with longstanding neutropenia 05/29/2024 2:00 PM EDT documented as of this encounter Visit Diagnoses Diagnosis S/P AVR Heart valve replaced by other means documented in this encounter Care Teams Wellness Manager Relationship Specialty Start Date End Date Deborah Quiroga APRN PCP - General Family Medicine 03/24/16 02/04/23 documented as of this encounter
--- OUTSIDE RECORDS SUMMARY | 2024-05-16 15:39 | XMS_ITS | Encounter Summary ---
Author Organization [facility] Address [facility] [place] [address] Care Team Providers Care Supervisor Fertilizer Processing Name Role Phone Deborah Quiroga APRN Primary Care Provider [phone] Reason for Visit * Reason Comments Follow-up Encounter Details Date Type Department Care Team (Late st Contact Info) Description 07/03/2022 1:30 PM EST Office Visit Hematology [place] [address] Markel Borjas MD [facility] [address] HEMATOLOGY [place] [address] Consuelo Sommer APRN [facility] [address] HEMATOLOGY [place] [address] Chronic idiopathic neutropenia; Dysuria Social History Tobacco [...] 07/03/2022 1:30 PM EST Hematology Outpatient Clinic [facility] Hematology Outpatient Consult Note CC: [...] TOUCH PREP, CLOT SECTION, CORE ??BIOPSY); [OSR# [id number], COLLECTED 06/23/2016, 19 SLIDES]: ?1. 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 in [employer] department Plays competitive scrabble, and goes to [employer] Family History: No known primary marrow disorders [...] intact. Extremities: No edema. Labs: Hgb= 11.7 Jygc=055 ANC= 2.5 Imaging As above - reviewed [...] EDT Hospital Encounter Outpatient [place] [address] Markel Borjas MD [facility] [address] HEMATOLOGY [place] [address] 05/29/2024 2:00 PM EDT - 05/29/2024 2:43 PM EDT Surgery Outpatient [place] [address] Markel Borjas MD [facility] [address] HEMATOLOGY [place] [address] (OSC MSURG) BONE MARROW BIOPSY AND ASPIRATION; DIAGNOSTIC (WRVU 1.44) 06/23/2024 2:00 PM EST Office Visit [place]ology [place] [address] Markel Borjas MD [facility] [address] HEMATOLOGY [place] [address] 03/01/2025 4:15 PM EDT Office Visit Dermatology at [place] [address] [place] [address] Marek Bonilla MD [address], [place] [address] Scheduled Procedures Name Priority Associated Diagnoses Date/Ti [...] Borjas MD MICROBIOLOGY - GEN ERAL ORDERABLES [facility] [place] [address] * (ABNORMAL) Urinalysis Microscopic Exam (07/03/2022 2:00 [...] Borjas MD URINE ORDERABLES [facility] [place] [address] * (ABNORMAL) Urinalysis with reflex Culture (07/03/2022 [...] HOSPITAL LABORATORY Leukocytes, Urine Dipstick Small(A) Negative [facility] LABORATORY Appearance, Urine Dipstick Clear Clear [facility] Specific [place] Urine Automated 1.022 1.005 - 1.030 [facility] Color, Urine Dipstick Yellow Yellow [facility] Reflex to Culture Yes [facility] Clean Catch Urine 07/03/2022 2:00 PM EST 07/03/2022 2:29 PM EST Narrative Resulting Agency Comment Spec In Lab Markel Borjas MD URINE ORDERABLES Performing Organization Address City/State/[facility] Co de Phone Number [facility] [place] [address] * (ABNORMAL) Comprehensive metabolic panel (non-fasting) (07/03/2022 [...] MD CHEMISTRY ORDERABL ES [facility] [place] [address] documented in this encounter Visit Diagnoses Diagnosis Chronic idiopathic neutropenia Other neutropenia Dysuria documented in this encounter Care Teams Supervisor Fertilizer Processing Relationship Specialty Start Date End Date Deborah Quiroga APRN PCP - General Family Medicine 03/24/16 02/04/23 documented as of this encounter
--- OUTSIDE RECORDS SUMMARY | 2024-05-16 15:39 | XMS_ITS | Encounter Summary ---
Author Organization [facility] Erika lópez[place] [address] Care Team Providers Care Lace Roller Operator Name Role Phone Deborah Quiroga ANURAG Primary Care Provider [phone] Encounter Details Date Type Department Care Team (Late st Contact Info) Description 01/09/2022 Refill Dermatology at [address] [address] Lupe Connor RN Social History [...] PM EDT Hospital Encounter [place] [address] Markel Borjas MD [facility] HEMATOLOGY [place] [address] 05/29/2024 2:00 PM EDT - 05/29/2024 2:43 PM EDT Surgery [place] [address] Markel Borjas MD [facility] HEMATOLOGY [place] [address] (OSC MSURG) BONE MARROW BIOPSY AND ASPIRATION; DIAGNOSTIC (WRVU 1.44) 06/23/2024 2:00 PM EST Office Visit Hematology [place] [address] Markel Borjas MD [facility] DR HEMATOLOGY [place] [address] 03/01/2025 4:15 PM EDT Office Visit Dermatology at [place] [address] [place] [address] Marek Bonilla MD [address], [place] [address] Scheduled Procedures Name Priority Associated Diagnoses Date/Ti me (OSC MSURG) BONE MARROW BIOPSY AND ASPIRATION; DIAGNOSTIC (WRVU 1.44) Anemia, in pt with longstanding neutropenia 05/29/2024 2:00 PM EDT documented as of this encounter Visit Diagnoses Not on filedocumented in this encounter Care Teams Lace Roller Operator Relationship Specialty Start Date End Date Deborah Quiroga APRN PCP - General Family Medicine 03/24/16 02/04/23 documented as of this encounter
--- OUTSIDE RECORDS SUMMARY | 2024-05-16 15:39 | XMS_ITS | Encounter Summary ---
Author Organization [facility] Address [facility] [place] [address] Care Team Providers Care Education Adviser Name Role Phone Deborah Quiroga APRN Primary Care Provider [phone] Encounter Details Date Type Department Care Team (Late st Contact Info) Description 06/18/2017 11:00 AM EST Office Visit Hematology [place] [address] Markel Borjas MD [facility] DR HEMATOLOGY [place] [address] Neutropenia, unspecified type Social History Tobacco Use [...] 06/18/2017 11:00 AM EST Hematology Outpatient Clinic [facility] Hematology Outpatient Consult Note [...] TOUCH PREP, CLOT SECTION, CORE ??BIOPSY); [OSR# [id number], COLLECTED 06/23/2016, 19 SLIDES]: ?1. ??Normocellular marrow [...] a clonal lymphoproliferative or myeloproliferative disorder (OSR# [id number]) Chromosome analysis on the marrow aspirate revealed [...] working the same job and participating in [employer] patients. Past Medical/Surgical History: 1. Leukopenia -element of neutropenia, as noted above 2. Aortic Stenosis -severe -AVR surgery 3. Hypercholesterolemia 4. Depression 5. Hypertension 6. 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 Extremities: No edema. Labs: Hgb= 13 Zlkt=007 ANC= 0.6 Imaging As above - reviewed [...] PM EDT Hospital Encounter [place] [address] Markel Borjas MD [facility] DR HEMATOLOGY [place] [address] 05/29/2024 2:00 PM EDT - 05/29/2024 2:43 PM EDT Surgery [place] [address] Markel Borjas MD [facility] DR HEMATOLOGY [place] [address] (OSC MSURG) BONE MARROW BIOPSY AND ASPIRATION; DIAGNOSTIC (WRVU 1.44) 06/23/2024 2:00 PM EST Office Visit Hematology [place] [address] Markel Borjas MD [facility] DR HEMATOLOGY [place] [address] 03/01/2025 4:15 PM EDT Office Visit Dermatology at [place] [address] [place] [address] Marek Bonilla MD [address], QU[address] DERMATOLOGY [place], [place] [address] Scheduled Procedures Name Priority Associated Diagnoses Date/Ti me (OSC MSURG) BONE MARROW BIOPSY AND ASPIRATION; DIAGNOSTIC (WRVU 1.44) Anemia, in pt with longstanding neutropenia 05/29/2024 2:00 PM EDT documented as of this encounter Visit Diagnoses Diagnosis Neutropenia, unspecified type documented in this encounter Care Teams Education Adviser Relationship Specialty Start Date End Date Deborah Quiroga APRN PCP - General Family Medicine 03/24/16 02/04/23 documented as of this encounter
--- OUTSIDE RECORDS SUMMARY | 2024-05-16 15:40 | XMS_ITS | Encounter Summary ---
Author Organization [facility] [place] [address] Care Team Providers Care Acid Plant Helper Name Role Phone Deborah Quiroga ANURAG Primary Care Provider [phone] Encounter Details Date Type Department Care Team (Late st Contact Info) Description 09/17/2016 External Results Hematology [place] [address] Alexandrea Greenwood RN Neutropenia, unspecified type Social [...] PM EDT Hospital Encounter Outpatient [place] [address] Markel Borjas MD [facility] DR [place] [address] 05/29/2024 2:00 PM EDT - 05/29/2024 2:43 PM EDT Surgery Outpatient [place] [address] Markel Borjas MD [facility] DR [place] [address] (OSC MSURG) BONE MARROW BIOPSY AND ASPIRATION; DIAGNOSTIC (WRVU 1.44) 06/23/2024 2:00 PM EST Office Visit Hematology [place] [address] Markel Borjas MD [facility] [place] [address] 03/01/2025 4:15 PM EDT Office Visit Dermatology at [place] [address] [place] [address] Marek Bonilla MD [address], [place] [address] Scheduled Procedures Name Priority Associated Diagnoses Date/Ti [...] type documented in this encounter Care Teams Acid Plant Helper Relationship Specialty Start Date End Date Deborah Quiroga, ANURAG PCP - General Family Medicine 03/24/16 02/04/23 documented as of this encounter
--- OUTSIDE RECORDS SUMMARY | 2024-05-16 15:40 | XMS_ITS | Encounter Summary ---
[place] [address] Care Team Providers Care Aerial Gunner Name Role Phone Junaid, Deborah Shields APRN Primary Care Provider [phone] Reason for Visit * Auth/Cert Specialty Diagnoses / Procedures Referred By Crispin t Referred To Contact Diagnoses Aortic stenosis Procedures PRO REPLACE AORT VALV, PROSTH VALV @REPLACE AORTIC VALVE, OPEN, W\CPB, W\PROSTHETIC VALVE (WRVU 41.32) Referral ID Status Reason Start Date Expiration Date Visits Re quested Visits Authorized [id number] 1 1 Encounter Details Date Type Department Care Team (Late st Contact Info) Description 09/21/2016 7:25 AM EST Anesthesia Event [place] [address] Luis Enrique Quarles MD [facility] [address] [place] [address] Henrik Cooper MD [facility] [address] [place] [address] Anesthesia Record Procedure Summary Procedure Name Responsible [...] 0819 Sternotomy 0844 CV Bypass init 1009 Cat Wagon Operator 1014 An Clamp Remove 1031 CP [...] Tube 09/21/16 (#28 angled chest tube to [place]: left: pericardial); Left; 09/22/16; 1119 09/21/16 0000 by Toshia Alejandre RN 09/22/16 1119 by Vero Bonilla RN Chest Tube 09/21/16 (#28 straig ht chest tube to [place]; right: mediastinal'); Right; mediastinum; 09/22/16; 1118 09/21/16 0000 by Toshia Alejandre RN 09/22/16 1118 by Vero Bonilla RN (RETIRED) Peripheral IV Line - Single Lumen 09/21/16; 0648; metacarpal vein (top of hand), left; [id number] catheter system; 20 gauge; valdo Arteaga; 09/23/16; [...] by Henrik Cooper MD 09/21/16 1655 by Krsity Augustin RCP Arterial Line 09/21/16; 0808; radi [...] MD - 09/21/2016 6:50 PM EST [facility] Department of Anesthesiology Post-procedure Note Patient: Purnima Thacker Procedure Summary Date Anesthesia Start Anesthesia Stop Room / Location 09/21/16 07 1152 [facility] OR 16 / [facility] MAIN OR Procedure Diagnosis Surgeon Responsible Provider @REPLACE AORTIC VALVE, OPEN, W\CPB, W\PROSTHETIC VALVE (WRVU 41.32) (N/A Chest); @AORTOPLASTY FOR SUPRAVALVULAR STENOSIS (WRVU 29.33) (N/A Chest) () Alirio Francisco MD Clark, Jeffrey A, MD All Anesthesia Providers: Anesthesiologist: Luis Enrique Quarles MD Shake Cutter: Henrik Cooper MD Last (1hr) Vitals: BP Temp 36.1 ??C (97 ??F) (09/21/16 1800) Pulse 79 (09/21/16 1800) Resp 11 (09/21/16 1800) SpO2 98 % (09/21/16 1800) Patient Location: [facility] Level of Consciousness: Sedated (Pharmacologic/Intentional) Pain [...] PM EDT Hospital Encounter [place] [address] Markel Borjas MD [facility] [address] HEMATOLOGY [place] [address] 05/29/2024 2:00 PM EDT - 05/29/2024 2:43 PM EDT Surgery [place] [phone] Markel Borjas MD [facility] [address] HEMATOLOGY [place] [address] ([facility] MSURG) BONE MARROW BIOPSY AND ASPIRATION; DIAGNOSTIC (WRVU 1.44) 06/23/2024 2:00 PM EST Office Visit [place]ematology [place] [phone] Markel Borjas MD [facility] [address] HEMATOLOGY [place] [address] 03/01/2025 4:15 PM EDT Office Visit Dermatology at [place] [address] [facility] [place] [address] Marek Bonilla MD [address], [place] A DERMATOLOGY [place], [place] [id number] Scheduled Procedures Name Priority Associated Diagnoses Date/Ti [...] mg documented in this encounter Care Teams Aerial Gunner Relationship Specialty Start Date End Date Deborah Quiroga, HEDGE FUND MANAGER PCP - General Family Medicine 03/24/16 02/04/23 documented as of this encounter
--- OUTSIDE RECORDS SUMMARY | 2024-05-16 15:40 | XMS_ITS | Encounter Summary ---
[place] [address] Care Team Providers Care Cargo Supervisor Name Role Phone Ashley Quirgoan Cornelius ANURAG Primary Care Provider [phone] Reason for Visit * Reason Onset Date Comments Medication Management 09/14/2016 Encounter Details Date Type Department Care Team (Late st Contact Info) Description 09/14/2016 Telephone Hematology [place] [address] Alexandrea Greenwood, payroll director Management Social History Tobacco Use Types [...] PM EDT Hospital Encounter [place] [phone] Markel Borjas MD [facility] [address] HEMATOLOGY [place] [address] 05/29/2024 2:00 PM EDT - 05/29/2024 2:43 PM EDT Surgery [place] [phone] Markel Borjas MD [facility] DR HEMATOLOGY [place] [address] ([facility] MSURG) BONE MARROW BIOPSY AND ASPIRATION; DIAGNOSTIC (WRVU 1.44) 06/23/2024 2:00 PM EST Office Visit Hematology [place] [address] Markel Borjas MD [facility] DR HEMATOLOGY [place] [address] 03/01/2025 4:15 PM EDT Office Visit Dermatology at [place] [address] [place] [address] Marek Bonilla MD [address], [place]MATOLOGY [place], [place] [id number] Scheduled Procedures Name Priority Associated Diagnoses Date/Ti me ([facility] MSURG) BONE MARROW BIOPSY AND ASPIRATION; DIAGNOSTIC (WRVU 1.44) Anemia, in pt with longstanding neutropenia 05/29/2024 2:00 PM EDT documented as of this encounter Visit Diagnoses Not on filedocumented in this encounter Care Teams Cargo Supervisor Relationship Specialty Start Date End Date Deborah Quiroga, ELEMENTARY VOCAL MUSIC TEACHER PCP - General Family Medicine 03/24/16 02/04/23 documented as of this encounter
--- OUTSIDE RECORDS SUMMARY | 2024-05-16 15:40 | XMS_ITS | Encounter Summary ---
Author Organization Formerly [facility] Address [facility] [place] [address] Care Team Providers Care Surgical Scheduler Name Role Phone Deborah Quiroga APRN Primary Care Provider [phone] Encounter Details Date Type Department Care Team (Latest Contact Info) Description 10/14/2016 - 10/14/2016 11:59 PM EDT Hospital Encounter Radiology Library at [facility] [place] [phone] Alirio Esparza MD Pain Discharge Disposition: Home [...] PM EDT Hospital Encounter [place] [address] Markel Borjas MD [facility] [place] [address] 05/29/2024 2:00 PM EDT - 05/29/2024 2:43 PM EDT Surgery [place] [address] Markel Borjas MD [facility] [place] [address] ([facility] MS[facility]G) BONE MARROW BIOPSY AND ASPIRATION; DIAGNOSTIC (WRVU 1.44) 06/23/2024 2:00 PM EST Office Visit Hematology [place] [address] Markel Borjas MD [facility] [place] [address] 03/01/2025 4:15 PM EDT Office Visit Dermatology at [address] [address] Marek Bonilla MD [address], [place] [address] Scheduled Procedures Name Priority Associated Diagnoses Date/Ti [...] DX Chest (10/14/2016 12:00 AM EDT) Narrative [facility] 10/14/2016 5:16 PM EDT This exam is for storage only and is auto-finalizing. Alirio Esparza MD IMG FILM LIBRARY OR DERABLES Performing Organization Address City/State/[facility] Co de Phone Number [place], [place] documented in this encounter Visit Diagnoses Diagnosis Pain Generalized pain documented in this encounter Care Teams Surgical Scheduler Relationship Specialty Start Date End Date Deborah Quiroga, DATA CONTROL CLERK SUPERVISOR PCP - General Family Medicine 03/24/16 02/04/23 documented as of this encounter
--- OUTSIDE RECORDS SUMMARY | 2024-05-16 15:40 | XMS_ITS | Encounter Summary ---
[place] [address] Care Team Providers Care Garnett Machine Operator Name Role Phone JunaidDeborah APRN Primary Care Provider [phone] Reason for Visit * Reason Onset Date Comments Labs Only 09/16/2016 Encounter Details Date Type Department Care Team (Late st Contact Info) Description 09/16/2016 Telephone Hematology [place] [phone] Alexandrea Greenwood, RN Labs Only Social History [...] 09/16/2016 11:09 AM EST Message received from trade union secretary: Purnima is having her Neulasta done today at [facility]. ??She is wondering if we want to do a CBC prior to the injection? [phone] Borjas: CBC is fine RN spoke with Swapna at [facility] who confirms they can draw CBC on pt today, RN faxed CBC w/diff to [facility] lab at [phone] RN relayed to pt that CBC ordered had been faxed to [facility], pt will have CBC drawn today prior to neulasta injection. documented in this encounter Plan of Treatment Upcoming Encounters Date Type Department Care Team (Late st Contact Info) Description 05/29/2024 2:00 PM EDT Hospital Encounter [place] [phone] Markel Borjas MD [facility] [address] HEMATOLOGY [place] [address] 05/29/2024 2:00 PM EDT - 05/29/2024 2:43 PM EDT Surgery [place] [phone] Markel Borjas MD [facility] DR HEMATOLOGY [place] [address] ([facility] MSURG) BONE MARROW BIOPSY AND ASPIRATION; DIAGNOSTIC (WRVU 1.44) 06/23/2024 2:00 PM EST Office Visit Hematology [place] [phone] Markel Borjas MD [facility] DR HEMATOLOGY [place] [address] 03/01/2025 4:15 PM EDT Office Visit Dermatology at [place] [address] [place] [phone] Marek Bonilla MD [address], [place] [address] Scheduled Procedures Name Priority Associated [...] type documented in this encounter Care Teams Garnett Machine Operator Relationship Specialty Start Date End Date Deborah Quiroga, BLOOD BANK ASSISTANT PCP - General Family Medicine 03/24/16 02/04/23 documented as of this encounter
--- OUTSIDE RECORDS SUMMARY | 2024-05-16 15:40 | XMS_ITS | Encounter Summary ---
[place] [address] Care Team Providers Care Medical Laboratory Scientist Name Role Phone Ashley Quirogazac Shields APRN Primary Care Provider [phone] Reason for Visit * Auth/Cert Specialty Diagnoses / Procedures Referred By Crispin t Referred To Contact Diagnoses Aortic stenosis Procedures PRO REPLACE AORT VALV, PROSTH VALV @REPLACE AORTIC VALVE, OPEN, W\CPB, W\PROSTHETIC VALVE (WRVU 41.32) Referral ID Status Reason Start Date Expiration Date Visits Re quested Visits Authorized [id number] 1 1 Encounter Details Date Type Department Care Team (Late st Contact Info) Description 09/21/2016 7:30 AM EST - 09/21/2016 12:04 PM EST Surgery [place] [address] Alirio Esparza MD @REPLACE AORTIC VALVE, OPEN, [...] in 1-2 weeks. Patient to follow-up with Junior Financial Analyst, Dr. Antelmo Burrell, in two weeks. Patient to follow-up with Cardiac Surgery, Dr. Alirio Esparza, to be scheduled for before 10/19/2016, with CXR, EKG, and Echo. Inpatient Provider Contact Information: [facility] Section of Cardiac Surgery [facility] [address] FAX [phone] Discharge Diagnoses (Hospital Problems) Primary Diagnoses: Secondary [...] 41.32) performed by Alirio Esparza MD at [facility] MAIN OR ??? Pro aortoplas for supravalv sten N/A 09/21/2016 @AORTOPLASTY FOR SUPRAVALVULAR STENOSIS (WRVU 29.33) performed by Alirio Esparza MD at [facility] MAIN OR [...] Hospital Course: Purnima Thacker was admitted to [facility] on 09/21/2016 via the Same [...] Alirio Esparza and/or the Cardiac Surgery Physician Senior Business Consultant Team may be reached at . Antibiotic prophylaxis: You will need to take antibiotics prior to many invasive tests and treatments, such as dental cleaning, which should be done every 6 months. Your primary care physician or your dentist can prescribe this medication. Please refer to the card with the [place] Heart Association Guidelines for more information. You have been provided with 3 copies of this card. Keep one for your self. Give one to your primary care physician and one to your dentist. Please refer to the [place] Heart Association Guidelines for more information. Good [...] Dr. Alirio Jones. You may use a Howard Track or treadmill but avoid any pulling [...] should resume a low fat, low cholesterol, [place] Heart Association Diet. Driving: No driving until [...] Phase 2 Cardiac Rehabilitation at [facility]. The patient agrees to a referral to this program. The referral will be sent at discharge and the patient should be contacted by the program within 1- 2 weeks from discharge. Future Appointments and Orders Future Appointments Provider Department Dept Phone 11/20/2016 11:30 AM Markel Borjas MD [facility] [phone] Future Orders Complete By Expires Echocardiogram Transthoracic([facility]) [[id number] Custom] 10/18/2016 (Approximate) 09/18/2017 Process Instructions: If the Echocardiogram is to be PERFORMED in a DH location other than [place]--STOP and order [id number], Echocardiogram South/External. Scheduling Instructions: Questions: Is a Bubble Study requested?: No Does the patient have Congenital Heart Disease?: No Does patient require sedation?: None GA rationale: Should this service be billed to the research sponsor?: EKG 12 Lead [EKG1 Custom] 10/18/2016 (Approximate) 09/25/2017 Process Instructions: Scheduling Instructions: Questions: Which DH location will this be performed?: [place] Is a rhythm strip needed?: No If EKG Reason is Pre-op Evaluation, indicate diagnosis for surgery.: Should this service be billed to the research sponsor?: XR Chest PA & Lateral (Generic) [[id number] Custom] 10/18/2016 (Approximate) 09/25/2017 Process Instructions: Scheduling Instructions: Questions: Where will study be performed?: [facility]- Radiology Portable exam?: No Reason for exam and clinical history: s/p AVReplacement, patch annuloplasty 1 month f/u Other pertinent information: Stat read required?: Date of injury if applicable: Requested Time: Referral to Cardiac Rehab [[id number] Custom] As directed Process Instructions: If no progress note charted, please enter Clinical details in comments. Scheduling Instructions: Questions: My question or request is: s/p AVR. Cardiac rehab at [facility] Referral to Home Health - at DISCHARGE [[id number] CPT(R)] As directed Process Instructions: Scheduling Instructions: Comments: DOCUMENTATION FOR VNA SERVICES (INCLUDING THOSE PATIENTS WITH MEDICARE COVERAGE REQUIRING HOME VNA SERVICES AND/OR HOSPICE SERVICES) PATIENT'S LOCATION: Purnimakary Galleg[address] [address] (home) No relevant phone numbers on file. Supervisor Cigar [employer]'s Name: self In discussion with the attending physician, it is certified that this patient is under their care and that they, or a Nurse Practitioner, or Physician Senior Business Consultant who is working directly with them, hada [...] for services as follows: HOME HEALTH AGENCY: [facility] PHONE: [phone] FAX: [phone] RN orders: Cardiopulmonary assessment, incisional assessment, assess [...] issues please call the Cardiac SurgeryOffice at [phone] FOR MEDICARE ONLY: In discussion with the [...] 09/30/16 Signed: Crispin Aranda PA-C 09/25/2016 [facility] Section of Cardiac Surgery [facility] [address] FAX [phone] Date: 09/25/2016 CC: ANURAG Alford Caryn E, APRN [address] [place] [address] documented in this encounter Discharge Instructions * [...] Alirio Esparza and/or the Cardiac Surgery Physician Senior Business Consultant Team may be reached at . Antibiotic prophylaxis: You will need to take antibiotics prior to many invasive tests and treatments, such as dental cleaning, which should be done every 6 months. Your primary care physician or your dentist can prescribe this medication. Please refer to the card with the [place] Heart Association Guidelines for more information. You have been provided with 3 copies of this card. Keep one for your self. Give one to your primary care physician and one to your dentist. Please refer to the [place] Heart Association Guidelines for more information. Good [...] Dr. Alirio Jones. You may use a [place] Track or treadmill but avoid any pulling [...] should resume a low fat, low cholesterol, [place] Heart Association Diet. Driving: No driving until [...] Phase 2 Cardiac Rehabilitation at [facility]. The patient agrees to a [...] PM EST Cardiac Surgery Progress Note: ID: [id number] S/p AVR, patch aortoplasty POD#2. PMH of [...] Gas) No results found for: PHART, PO2ART, [id number] Assessment/Plan: TPW out this am. (+) BM. [...] Signed: Crispin Aranda PA-C 09/24/2016 Team pager: [phone]; [phone] after 5pm [facility] Section of Cardiac Surgery * Leonor Henson S, MOBILE NURSE - 09/23/2016 10:48 AM EST Cardiac Surgery Progress Note: ID: [id number] s/p AVR, patch aortoplasty POD#2. PMH of [...] Gas) No results found for: PHART, PO2ART, [id number] Assessment/Plan: s/p AVR, patch aortoplasty POD#2. PMH of Neutropenia, HLD, HTN, Depression, obesity, . Transferred from [facility] yesterday and doing well. Pathway. Will [...] Surgeon on rounds. Signed: Leonor Henson APRN [facility] Section of Cardiac Surgery Date: 09/23/2016 * Nico Palacios PA - 09/22/2016 9:56 AM EST Cardiac Surgery Progress Note: ID: [id number] s/p AVR, patch aortoplasty POD#1. PMH of [...] NT, ND, soft. Ext: Moves all extremities. [place], well perfused. Incisions: C/D/I Tubes/Lines/Drains: PIV, leanna, [...] Attending Surgeon on rounds. Signed: EKATERINA KIM [facility] Section of Cardiac Surgery Date: [...] Outcome (s) achieved Date Met: 09/25/16 09/25/16 4983 Coping/Psychosocial Plan Of Care Reviewed With patient [...] services Lalitha Cohen [facility] Pager: [phone] Inpatient Physical Therapy Patient status, treatment interventions, and goals discussed with student. I am in agreement with all details and associated flowsheet rows as documented and was present for all aspects of the patient treatment session. Nery Jaramillo, CANDY Pager [phone] Problem: Acute Rehab Services Goal & Intervention Plan Goal: Bed Mobility Goal Stand Alone Therapy Goal Outcome: Ongoing (Interventions Implemented as Appropriate) 09/22/16 1611 09/25/16 0947 Bed Mobility Goal Bed Mobility Goal, Time to Achieve 4 days -- Bed Mobility Goal, Activity Type scoot/bridge;supine to sit/sit to supine -- Bed Mobility Goal, Metz Level independent -- Bed Mobility Goal, Additional [...] Achieve 4 days -- Gait Training Goal, Metz Level independent -- Gait Training Goal, Distance [...] assist, home with home health [facility]itha Cohen [facility] Pager: [phone] Inpatient Physical Therapy Patient status, treatment interventions, and goals discussed with student. I am in agreement with all details and associated flowsheet rows as documented and was present for all aspects of the patient treatment session. Nery Jaramillo, IT SECURITY MANAGER Pager [phone] Problem: Acute Rehab Services Goal & Intervention Plan Goal: Bed Mobility Goal Stand Alone Therapy Goal Outcome: Ongoing (Interventions Implemented as Appropriate) 09/22/16161009/23/161411 Bed Mobility Goal Bed Mobility Goal, Time to Achieve 4 days -- Bed Mobility Goal, Activity Type scoot/bridge;supine to sit/sit to supine -- Bed Mobility Goal, Metz Level independent -- Bed Mobility Goal, Additional [...] Achieve 4 days -- Gait Training Goal, Metz Level independent -- Gait Training Goal, Distance [...] days -- Transfer Training Goal, Activity Type dtr-fg-vmtig/lkhfi-so-bzn;uiy-vz-qgani/poual-sa-wfu -- Transfer Train Goal, Metz Level independent -- Transfer Training Goal, Additional Goal abides sternal precautions -- Transfer Training Goal, Outcome -- goal met * Consult Note - Jana Crenshaw RN - 09/23/2016 9:41 AM EST [facility] CARDIAC [facility]ILITATION Purnima Thacker was seen today regarding participation in the outpatient Phase 2 Cardiac Rehabilitation at [facility]. The patient agrees to a [...] Another Service: (cardiac rehab) NICOLE HERNANDEZ, PT Pager:[phone] Inpatient Physical Therapy Problem: Acute Rehab Services Goal & Intervention Plan Goal: Bed Mobility Goal Stand Alone Therapy Goal Outcome: Ongoing (Interventions Implemented as Appropriate) 09/22/161610 Bed Mobility Goal Bed Mobility Goal, Time to Achieve 4 days Bed Mobility Goal, Activity Type scoot/bridge;supine to sit/sit to supine Bed Mobility Goal, Metz Level independent Bed Mobility Goal, Additional Goal able to abide sternal precautions during transfers Goal: Gait Training Goal Stand Alone Therapy Goal Outcome: Ongoing (Interventions Implemented as Appropriate) 09/22/161610 Gait Training Goal Gait Training Goal, Date Established 09/22/16 Gait Training Goal, Time to Achieve 4 days Gait Training Goal, Metz Level independent Gait Training Goal, Distance to Achieve ascend and descends 2 steps independently Goal: Goal Transfer Training Stand Alone Therapy Goal Outcome: Ongoing (Interventions Implemented as Appropriate) 09/22/161610 Goal Transfer Training Transfer Training Goal, Time to Achieve 4 days Transfer Training Goal, Activity Type bmz-jl-snlvd/sgnff-su-jsq;chx-iy-adkmi/gbhwv-kq-dby Transfer Train Goal, Metz Level independent Transfer Training Goal, Additional Goal [...] of completing AD's at home, chooses her eptqwc-xb-bjv, Martha Thacker (home) for her DPOAH, 2nd choice in friend, Nitesh Rad, [place], [place] Current Coping/Education/Information Needs: patient sitting up [...] close by, Rashad & Raymond, and her onxfrc-km-wxa Martha Thacker who she has chosen to be her DPOAH. Also has a friend Nitesh Leroy who lives in [place], [place], also her DPOAH choice. Behavioral Health History: none on file in e[facility] Substance Use/Abuse: none on file in [facility] Other Pertinent/Service Specific Information: none Health/Prescription Coverage: Primary Insurance: [employer] Secondary Insurance: none Prescription Coverage: yes, per patient no issues Preferred Pharmacy: ?? Other: none Primary Care Provider: Deborah Quiroga, MOBILE NURSE [phone] Patient/Caregiver Goals of Treatment: per medical team recommendations at discharge for CT surgery Potential Needs for Transition of Care: Rehab/SNF: TBD Home Health: TBD DME: no Dialysis: no Community Resources: non3 Transportation: ride home with a friend Other: none Anticipated Barriers to Discharge/Special Considerations: none anticipated at this time Plan: patient will need VNA services at discharge. The patient/medical detail representative has been provided a list of Home Health Agencies/DME vendors which servetheir preferred geographic area. A letter describing our affiliations was reviewed with them and they were educated about their right to choose where referrals are placed. Patient requests referral to: [facility] [employer]. PHONE: [phone] FAX: [phone] Expected date of discharge: Fri/Sat? CM called VNA to confirm referral, talked with VALDO Bunn/intake who stated she was familiar w/patient & would monitor her progress through curaspan. Referral routed to the Coal Conveyor Operator for matching with agency/vendor and to provide any required information. A member of the Care Management team will continue to monitor progress, follow for continuity of care and assist with transition of care planning. Amanda Moreno RN Pager: [phone] * Op Note - Alirio Esparza MD - 09/21/2016 12:53 PM EST 09/23/2016 Purnima Thacker [id number] Preoperative Diagnosis: Symptomatic aortic stenosis Postoperative Diagnosis: Symptomatic aortic stenosis Procedure: Aortic valve replacement: Bovine Pericardial 25 mm Surgeon: Alirio Esparza M.D. Senior Business Consultant: Philip BALL Anesthesia: General endotracheal anesthesia Drains: [...] applied. The patient was transported to the [facility] on levo. All counts were correct. [...] Operative Note Patient Name: Purnima Thacker : [id number] MR#: [id number] Case Date: 09/21/2016 Surgeon: Surgeon(s) and Role: * Alirio Esparza MD - Primary * Nico Palacios PA - Physician Senior Business Consultant Preoperative diagnosis: Postoperative diagnosis: Procedure(s) (LRB): @REPLACE [...] PM EDT Hospital Encounter [place] [phone] Markel Borjas MD [facility] [address] [place] [address] 05/29/2024 2:00 PM EDT - 05/29/2024 2:43 PM EDT Surgery [place]patient [place] [phone] Markel Borjas MD [facility] [address] [place] [address] (OSC MSURG) BONE MARROW BIOPSY AND ASPIRATION; DIAGNOSTIC (WRVU 1.44) 06/23/2024 2:00 PM EST Office Visit Hematology [place] [phone] Markel Borjas MD [facility] [address] [place] [address] 03/01/2025 4:15 PM EDT Office Visit Dermatology at [place] [address] [place] [id number] Marek Bonilla MD [address], [place] [address] Scheduled Orders Name Type Priority Associated Diagnoses Orde r Schedule EKG 12 Lead ECG Routine S/P AVR Expected: 10/18/2016 (Approximate), Expires: 09/25/2017 Scheduled Procedures Name Priority Associated Diagnoses Date/Ti [...] IMPLANTABLE DEVICES SCAN 09/26/2016 12:00 AM EST PRODUCTION STATISTICAL CLERK SCAN 09/26/2016 12:00 AM EST POTASSIUM [...] SCAN EXT O RDR/RSLT * SCAN DOC: PRODUCTION STATISTICAL CLERK (09/26/2016 12:00 AM EST) Anatomical Region [...] CHEMISTRY ORDERABLE S [facility] [place] [address] * (ABNORMAL) Differential, Automated (09/24/2016 9:56 AM EST) Neutrophil % 76.8 % [facility] Neutrophil Absolute 7.79(H) 1.70 - 6.10 x10(3)/mc L [facility] Lymph % 11.1 % [facility] Lymphocytes Abs 1.1 0.9 - 3.2 x10(3)/ L [facility] Monocyte % 8.5 % [facility] Monocyte Abs 0.9 0.3 - 0.9 x10(3)/ L [facility] Eos % 0.5 % [facility] [...] Immature Gran Absolute 0.29(H) 0.00 - 0.04 x10(3)/ L [facility] Blood specimen (specimen) 09/24/2016 9:56 AM EST 09/24/2016 10:04 AM EST Narrative Resulting Agency Comment Spec In Lab Alirio Esparza MD HEMATOLOGY ORDERABL ES Performing Organization Address City/State/[facility] Co de Phone Number [facility] [place] [address] * (ABNORMAL) Hemogram (09/24/2016 9:56 AM EST) White Blood Cell 10.1(H) 4.0 - 9.5 x10(3)/ L [facility] Red Blood Cell 2.87(L) 4.00 - 5.21 x10(6)/ L [facility] Hemoglobin 9.4(L) [...] HEMATOLOGY ORDERABL ES [facility] [place] [place] [address] * (ABNORMAL) Basic Metabolic Panel (non-fasting) (09/24/2016 [...] supplied above were not validated at [facility]. Results from pediatric patients should be interpreted [...] the following links into your internet browser. [email or web address] Blood specimen (specimen) 09/24/2016 9:56 AM EST 09/24/2016 10:04 AM EST Narrative Resulting Agency Comment Spec In Lab Alirio Esparza MD CHEMISTRY ORDERABLE S Performing Organization Address City/State/[facility] Co de Phone Number [facility] [place] [address] * XR Chest PA & Lateral (Generic) [...] CHEMISTRY ORDERABLE S [facility] [place] [address] * POCT Glucose (09/22/2016 8:17 AM EST) Glucose, POC 131 65 - 199 mg/dL [facility] Comment: Supplemental ranges: <140 mg/dL before meals <180 mg/dL all other times of the day Blood specimen (specimen) 09/22/2016 8:17 AM EST 09/22/2016 8:17 AM EST Alirio Esparza MD POINT OF CARE TEST ORDERABLES Performing Organization Address [facility] Co de Phone Number [facility] [place] [address] * POCT Glucose (09/22/2016 4:01 AM EST) Pathologist [facility] Glucose, POC 135 65 - 199 mg/dL [facility] Comment: Supplemental ranges: <140 mg/dL before meals <180 mg/dL all other times of the day Blood specimen (specimen) 09/22/2016 4:01 AM EST 09/22/2016 4:01 AM EST Alirio Esparza MD POINT OF CARE TEST ORDERABLES Performing Organization Address [facility] de Phone Number [facility] [place] [address] * Scan, Peripheral Blood (09/22/2016 4:00 AM EST) Pathologist [facility] Plat estimate Normal [facility] RBC Morphology Abnormal [facility] Macrocyte 1-5 /HPF [facility] Plat, Giant Less than 1 /HPF [facility] Blood specimen (specimen) 09/22/2016 4:00 AM EST 09/22/2016 4:34 AM EST Narrative Resulting Agency Comment Spec In Lab Alirio Esparza MD HEMATOLOGY ORDERABL ES Performing Organization Address [facility] Co de Phone Number [facility] [place] [address] * Electrolytes panel (09/22/2016 4:00 AM EST) [facility] Sodium 145 135 - 145 mmol/L [facility] [...] CHEMISTRY ORDERABLE S [facility] [place] [address] * (ABNORMAL) Differential, Automated (09/22/2016 4:00 AM EST) Neutrophil % 70.9 % [facility] Neutrophil Absolute 5.33 1.70 - 6.10 x10(3)/mc L [facility] Lymph % 9.1 % [facility] Lymphocytes Abs 0.7(L) 0.9 - 3.2 x10(3)/mc L [facility] Monocyte % 18.0 % [facility] Monocyte Abs 1.4(H) 0.3 - 0.9 x10(3)/mc L [facility] Eos % 0.0 % [facility] Eosinophils Abs 0.0 0.0 - 0.4 x10(3)/mc L [facility] Basophil % 0.1 % [facility] [...] HEMATOLOGY ORDERABL ES [facility] [place] [address] * (ABNORMAL) Hemogram (09/22/2016 4:00 AM EST) White Blood Cell 7.5 4.0 - 9.5 x10(3)/[facility] Red Blood Cell 2.93(L) 4.00 - 5.21 x10(6)/[facility] Hemoglobin 9.2(L) 11.7 - 15.5 [...] CENTER LABORATORY Platelet 161 145 - 357 x10(3)/[facility] RDW Standard Deviation 44.0 37.0 - 46.0 [facility] RDW coefficient of variation 12.6 11.5 - 14.1 % [facility] Mean Platelet Volume 9.3 7.6 - 12.9 fL [facility] NRBC% auto 0.3 % [facility] NRBC Absolute 0.020(H) 0.000 - 0.000 x10(3)/[facility] Blood specimen (specimen) 09/22/2016 4:00 AM EST 09/22/2016 4:34 AM EST Narrative Resulting Agency Comment Spec In Lab Alirio Esparza MD HEMATOLOGY ORDERABL ES Performing Organization Address [facility] Co de Phone Number [facility] [place] [address] * (ABNORMAL) Cardiac Enzymes (09/22/2016 4:00 AM EST) Troponin-T 0.13(H) <=0.03 ng/mL [facility] Comment: 0.03 ng/mL: Represents the 99th percentile upper reference limit for normals. >0.03 ng/mL: Elevated cardiac troponin T level indicative of myocardial damage. Diagnosis of acute, evolving or recent LA requires a typical rise and gradual fall [...] consensus document of the Joint Society of Cardiology/[place] College of Cardiology Committee for the redefinition of myocardial infarction. ??Journal of the [place] College of Cardiology 2000; 36: 959-969] Creatine Kinase 338(H) 0 - 160 unit/L [facility] Blood specimen (specimen) 09/22/2016 4:00 AM EST 09/22/2016 4:34 AM EST Narrative Resulting Agency Comment Spec In Lab Alirio Esparza MD CHEMISTRY ORDERABLE S Performing Organization Address [facility] Co de Phone Number [facility] [place] [address] * (ABNORMAL) Glucose, fasting (09/22/2016 4:00 AM [...] of Diabetes Mellitus, Position Statement from the [place] Diabetes Association. ??Diabetes Care, Volume 33, Supplement 1, Aug 2009 Blood specimen (specimen) 09/22/2016 4:00 AM EST 09/22/2016 4:34 AM EST Narrative Resulting Agency Comment Spec In Lab Alirio Esparza MD CHEMISTRY ORDERABLE S Performing Organization Address City/State/[facility] Co de Phone Number [facility] [place] [address] * (ABNORMAL) Creatinine (09/22/2016 4:00 AM EST) Creatinine 0.69(L) 0.70 - 1.20 mg/dL [facility] Comment: Please note that the pediatric reference intervals supplied above were not validated at [facility]. Results from pediatric patients should be interpreted in conjunction to the patient's age, height and muscle mass. Est Glomerular Filtration Rate >60 >=60 [place] [...] the following links into your internet browser. [email or web address] [email or web address] Blood specimen (specimen) 09/22/2016 4:00 AM EST 09/22/2016 4:34 AM EST Narrative Resulting Agency Comment Spec In Lab Alirio Esparza MD CHEMISTRY ORDERABLE S Performing Organization Address City/[facility]/ZIP Co de Phone Number [facility] [place] [address] * BUN (09/22/2016 4:00 AM EST) Blood Urea Nitrogen 10 8 - 18 mg/dL [facility] Blood specimen (specimen) 09/22/2016 4:00 AM EST 09/22/2016 4:34 AM EST Narrative Resulting Agency Comment Spec In Lab Alirio Esparza MD CHEMISTRY ORDERABLE S Performing Organization Address [facility] Co de Phone Number [facility] [place] [address] * POCT Glucose (09/21/2016 9:59 PM EST) Glucose, POC 146 65 - 199 mg/dL [facility] Comment: Supplemental ranges: <140 mg/dL before meals <180 mg/dL all other times of the day Blood specimen (specimen) 09/21/2016 9:59 PM EST 09/21/2016 9:59 PM EST Alirio Esparza MD POINT OF CARE TEST ORDERABLES Performing Organization Address [facility] Co de Phone Number [facility] [place] [address] * POCT Glucose (09/21/2016 7:26 PM EST) Glucose, POC 152 65 - 199 mg/dL [facility] Comment: Supplemental ranges: <140 mg/dL before meals <180 mg/dL all other times of the day Blood specimen (specimen) 09/21/2016 7:26 PM EST 09/21/2016 7:26 PM EST Alirio Esparza MD POINT OF CARE TEST ORDERABLES Performing Organization Address City/[facility]/ZIP Co de Phone Number [facility] [place] [address] * POCT Glucose (09/21/2016 6:00 PM EST) Pathologist [facility] Glucose, POC 146 65 - 199 mg/dL [facility] Comment: Supplemental ranges: <140 mg/dL before meals <180 mg/dL all other times of the day Blood specimen (specimen) 09/21/2016 6:00 PM EST 09/21/2016 6:00 PM EST Alirio Esparza MD POINT OF CARE TEST ORDERABLES [facility] [place] [address] * (ABNORMAL) BLOOD GAS 2 ARTERIAL (09/21/2016 4:42 PM EST) [facility] pH, Arterial 7.35(L) 7.35 - 7.45 [facility] [...] [facility] FIO2 Art 40 % [facility] PF Ratio Art 270 [facility] Blood specimen (specimen) 09/21/2016 4:42 PM EST 09/21/2016 4:42 PM EST Alirio Esparza MD POINT OF CARE TEST ORDERABLES Performing Organization Address [facility]/ZIP Co de Phone Number [facility] [place] [address] * POCT Glucose (09/21/2016 4:07 PM EST) Glucose, POC 150 65 - 199 mg/dL [facility] Comment: Supplemental ranges: <140 mg/dL before meals <180 mg/dL all other times of the day Blood specimen (specimen) 09/21/2016 4:07 PM EST 09/21/2016 4:07 PM EST Alirio Esparza MD POINT OF CARE TEST ORDERABLES Performing Organization Address City/[facility]/ZIP Co de Phone Number [facility] [place] [address] * (ABNORMAL) Hemoglobin (09/21/2016 4:05 PM EST) Hemoglobin 9.9(L) 11.7 - 15.5 gm/dL [facility] Blood specimen (specimen) 09/21/2016 4:05 PM EST 09/21/2016 4:20 PM EST Narrative Resulting Agency Comment Spec In Lab Alirio Esparza MD HEMATOLOGY ORDERABL ES Performing Organization Address [facility] de Phone Number [facility] [place] [address] * Potassium (09/21/2016 4:05 PM EST) Potassium [...] MD CHEMISTRY ORDERABLE S Performing Organization Address [facility] de Phone Number [facility] [place] [place] [address] * POCT Glucose (09/21/2016 2:52 PM EST) Glucose, POC 117 65 - 199 mg/dL [facility] Comment: Supplemental ranges: <140 mg/dL before meals <180 mg/dL all other times of the day Blood specimen (specimen) 09/21/2016 2:52 PM EST 09/21/2016 2:52 PM EST Alirio Esparza MD POINT OF CARE TEST ORDERABLES Performing Organization Address [facility] Co de Phone Number [facility] [place] [address] * POCT Glucose (09/21/2016 1:51 PM EST) Glucose, POC 108 65 - 199 mg/dL [facility] Comment: Supplemental ranges: <140 mg/dL before meals <180 mg/dL all other times of the day Blood specimen (specimen) 09/21/2016 1:51 PM EST 09/21/2016 1:51 PM EST Alirio Esparza MD POINT OF CARE TEST ORDERABLES Performing Organization Address City/[facility]/ZIP Co de Phone Number [facility] [place] [address] * POCT Glucose (09/21/2016 12:54 PM EST) Glucose, POC 128 65 - 199 mg/dL [facility] Comment: Supplemental ranges: <140 mg/dL before meals <180 mg/dL all other times of the day Blood specimen (specimen) 09/21/2016 12:54 PM EST 09/21/2016 12:54 PM EST Alirio Esparza MD POINT OF CARE TEST ORDERABLES Performing Organization Address [facility] Co de Phone Number [facility] [place] [address] * EKG 12 Lead (09/21/2016 12:26 PM EST) Ventricular rate 87 BPM MUSE SYSTEM Atrial Rate 87 BPM MUSE SYSTEM P-R Interval 256 ms MUSE SYSTEM QRS Duration 90 ms MUSE SYSTEM Q-T Interval 406 ms MUSE SYSTEM QTC Calculated (Bezet) 488 ms MUSE SYSTEM Calculated P Niotaze 24 degrees MUSE SYSTEM Calculated R Niotaze 21 degrees MUSE SYSTEM Calculated T Niotaze -5 degrees MUSE SYSTEM INTERPRETATION Sinus rhythm with 1st degree A-V block Nonspecific T wave abnormality Prolonged QT Abnormal ECG When compared with ECG of 19-MAY-2016 11:43, [place] interval has increased T wave inversion now evident in inferior and midanterior leads Confirmed by MD FRANKLYN, MARLEN ([id number]) on 09/21/2016 1:40:59 PM MUSE SYSTEM 09/21/2016 12:2 6 PM EST 09/21/2016 1:40 PM EST Alirio Esparza MD ECG ORDERABLES Performing Organization Address City/[facility] Co de Phone Number MUSE SYSTEM [...] course of the esophagus and below the [id number]. There is a right IJ PA catheter [...] the course of theesophagus and below the [id number]. There is a right IJ PA catheter [...] [facility]ICAL [facility]ENTER [facility] FIO2 Art 100 % [facility] PF Ratio Art 356 [facility] Blood specimen (specimen) 09/21/2016 12:20 PM EST 09/21/2016 12:20 PM EST Alirio Esparza MD POINT OF CARE TEST ORDERABLES [facility] [place] [place] [address] * (ABNORMAL) BLOOD GAS 2 ARTERIAL (09/21/2016 [...] [facility]ICAL [facility]ENTER [facility] FIO2 Art 95 % [facility] Flow Art 0.7 LPM [facility] PF Ratio Art 313 [facility] Temp Art 36.7 Celsius [facility] Blood specimen (specimen) 09/21/2016 10:54 AM EST 09/21/2016 10:54 AM EST Alirio Esparza MD POINT OF CARE TEST ORDERABLES [facility] [place] [address] * Thrombin time (09/21/2016 10:50 AM EST) [...] HEMATOLOGY ORDERABLE S Performing Organization Address [facility] Co de Phone Number [facility] [place] [address] * Fibrinogen (09/21/2016 10:50 AM EST) Pathologist [facility] Fibrinogen 228 180 - 510 mg/dL [facility] [...] MD HEMATOLOGY ORDERABLE S Performing Organization Address City/[facility]/ZIP Co de Phone Number [facility] [place] [address] * APTT (09/21/2016 10:50 AM EST) Partial Thromboplastin Time 32 25 - 35 sec [facility] Comment: The recommended therapeutic range for full dose, unfractionated heparin at [facility] is 80 ? 114 seconds. The use of the anti-Xa (heparin) level rather than the PTT is recommended for monitoring anticoagulation intensity in critically ill patients receiving unfractionated heparin by continuous IV infusion. Blood specimen (specimen) 09/21/2016 10:50 AM EST 09/21/2016 10:56 AM EST Narrative Resulting Agency Comment Spec In Lab Luis Enrique Quarles MD HEMATOLOGY ORDERABLE S Performing Organization Address City/[facility]/ZIP Co de Phone Number [facility] [place] [address] * (ABNORMAL) Prothrombin Time (09/21/2016 10:50 AM EST) [facility] Prothrombin Time 18.7(H) 12.0 - 15.0 sec [...] HEMATOLOGY ORDERABLE S [facility] [place] [address] * (ABNORMAL) Hemogram (09/21/2016 10:50 AM EST) [...] HEMATOLOGY ORDERABLE S [facility] [place] [address] * Prepare Platelets, Apheresis (09/21/2016 10:30 AM EST) Dispensed? Yes [facility] Blood specimen (specimen) 09/21/2016 10:30 AM EST 09/21/2016 10:28 AM EST Alirio Esparza MD BLOOD BANK PRODUCT ORDERABLES [facility] [place] [place] [address] * (ABNORMAL) BLOOD GAS 2 ARTERIAL (09/21/2016 10:05 AM EST) pH, Arterial 7.33(L) 7.35 - 7.45 [facility] PCO2, Arterial 54(Critic al) 35 - 45 mmHg [facility] Comment:Noted by percussion instrument repairer. PO2, Arterial 218(H) 85 - [...] [facility] Comment: Noted by percussion instrument repairer. Please note: Patients with WBC [...] MEDICAL CENTER LABORATORY Temp Art 37.0 Celsius [facility] Blood specimen (specimen) 09/21/2016 10:05 AM EST 09/21/2016 10:05 AM EST Alirio Esparza MD POINT OF CARE TEST ORDERABLES [facility] [place] [address] * (ABNORMAL) BLOOD GAS 2 ARTERIAL (09/21/2016 9:44 AM EST) pH, Arterial 7.22(Criti gabrielle) 7.35 - 7.45 [facility] Comment:Noted by percussion instrument repairer. PCO2, Arterial 70(Critica l) 35 - 45 mmHg [facility] Comment:Noted by percussion instrument repairer. PO2, Arterial 224(H) 85 - [...] Whole Blood 5.9(H) 3.5 - 5.0 mmol/L [facility] Comment: Please note: Patients [...] CARE TEST ORDERABLES Performing Organization Address [facility] Phone Number [facility] [place] [address] * (ABNORMAL) Hemoglobin (09/21/2016 9:42 AM EST) Hemoglobin 7.2(L) 11.7 - 15.5 gm/dL [facility] Blood specimen (specimen) 09/21/2016 9:42 AM EST 09/21/2016 9:51 AM EST Narrative Resulting Agency Comment Spec In Lab Alirio Esparza MD HEMATOLOGY ORDERABL ES Performing Organization Address [facility] Co de Phone Number [facility] [place] [address] * Platelet count (09/21/2016 9:42 AM EST) Platelet 159 145 - 357 x10(3)/mc L [facility] Immature Plt % 1.6 0.0 - 7.4 % [facility] Comment: Limitation of the Immature Platelet Fraction (IPF)-May be less reliable when the platelet count is less than 52g978/uL due to statistical imprecision. The IPF value [...] in a decreased state of production. References: [employer] The Clinical Value of the Immature Platelet Fraction (IPF) in Cell Recovery Document Number 10-1143 12/2010 [employer] The Role of the Immature Platelet Fraction (IPF) in the Differential Diagnosis of Thrombocytopenia, Document MKT-[id number] V05 Blood specimen (specimen) 09/21/2016 9:42 AM EST 09/21/2016 9:51 AM EST Narrative Resulting Agency Comment Spec In Lab Alirio Esparza MD HEMATOLOGY ORDERABL ES Performing Organization Address City/[facility]/ZIP Co de Phone Number [facility] [place] [address] * (ABNORMAL) Hematocrit (09/21/2016 9:42 AM EST) Pathologist [facility] Hematocrit 21.6(L) 35.7 - 45.8 % [facility]/ZIP Co de Phone Number [facility] [place] [address] * Fibrinogen (09/21/2016 9:42 AM EST) Fibrinogen [...] HEMATOLOGY ORDERABL ES [facility] [place] [address] * (ABNORMAL) BLOOD GAS 2 ARTERIAL (09/21/2016 [...] [facility]ENTER [facility] Temp Art 37.0 Celsius [facility] Blood specimen (specimen) 09/21/2016 9:10 AM EST 09/21/2016 9:10 AM EST Alirio Esparza MD POINT OF CARE TEST ORDERABLES Performing Organization Address City/State/[facility] Co de Phone Number [facility] [place] [address] * Surgical Pathology Report (09/21/2016 9:09 AM EST) Final Diagnosis [id number] ?Location: The signing pathologist has (i) examined [...] Esparza MD PATHOLOGY/CYTOLOGY ORDERABLES Performing Organization Address City/[facility]/ZIP Co de Phone Number [place] [phone] * Specimen to Pathology (surgical or derm) (09/21/2016 9:09 AM EST) AP Specimen 09/21/2016 9:09 AM EST 09/21/2016 9:09 AM EST Narrative [facility] - 09/21/2016 9:09 AM EST Specimen requisition ordered. ??Separate Pathology report to follow Alirio Esparza MD PATHOLOGY/CYTOLOGY ORDERABLES Performing Organization Address City/[facility] [place] [address] * (ABNORMAL) BLOOD GAS 2 ARTERIAL (09/21/2016 [...] OF CARE TEST ORDERABLES Performing Organization Address City/State/[facility] Phone Number [facility] [place] [address] * (ABNORMAL) BLOOD GAS 2 ARTERIAL (09/21/2016 [...] [facility]ICAL CENTER [facility] FIO2 Art 95 % [facility] Flow Art 1.1 LPM [facility] PF Ratio Art 298 [facility] Temp Art 35.6 Celsius [facility] Blood specimen (specimen) 09/21/2016 8:18 AM EST 09/21/2016 8:18 AM EST Alirio Esparza MD POINT OF CARE TEST ORDERABLES [facility] [place] [address] * Prepare RBC (09/21/2016 7:05 AM EST) Dispensed? Yes [facility] Blood specimen (specimen) 09/21/2016 7:05 AM EST 09/21/2016 7:02 AM EST Alirio Esparza MD BLOOD BANK PRODUCT ORDERABLES Performing Organization Address City/[facility]/ZIP Co de Phone Number [facility] [place] [address] * POCT Glucose (09/21/2016 6:42 AM EST) Glucose, POC 104 65 - 199 mg/dL [facility] Comment: Supplemental ranges: <140 mg/dL before meals <180 mg/dL all other times of the day Blood specimen (specimen) 09/21/2016 6:42 AM EST 09/21/2016 6:42 AM EST Alirio Esparza MD POINT OF CARE TEST ORDERABLES Performing Organization Address City/[facility] Co de Phone Number [facility] [place] [address] documented in this encounter Visit Diagnoses Not [...] dose on Wed09/21/16 at 1230, Until Discontinued, [place] teeth, Routine Given 09/25/2016 9:40 AM EST [...] OPEN, Routine 170 (Given - Provider: Federico Apple, RN) 162 (Given - Provider: Chaya Hill, VALDO) chlorhexidine (PERIDEX) 0.12 % oral solution 15 mL 15 mL, Oral, EVERY 12 HOURS SCHEDULED (2 times per day), First dose on Wed09/21/16 at 1230, Until Discontinued, [place] teeth, Routine 0900 (Not Given - Provider: [...] VALDO)1708 (Given - Provider: Federico Apple RN) 08 (Given - Provider: Marek Barnes RN)162 (Given - Provider: Chaya Hill RN) 0941 [...] RN) 09 (Not Given - Provider: Marek Barnes, VALDO [...] 08 (Given - Provider: Elsa Miguel RN) 0829 [...] Routine documented in this encounter Care Teams Medical Laboratory Scientist Relationship Specialty Start Date End Date Deborah Quiroga APRN PCP - General Family Medicine 03/24/16 02/04/23 documented as of this encounter
--- OUTSIDE RECORDS SUMMARY | 2024-05-16 15:40 | XMS_ITS | Encounter Summary ---
[place] [address] Care Team Providers Care [place] Department Worker Name Role Phone Ashley Quirogan Cornelius ANURAG Primary Care Provider [phone] Reason for Visit * Reason Onset Date Comments Medical Care Coordination 09/14/2016 Encounter Details Date Type Department Care Team (Late st Contact Info) Description 09/14/2016 Telephone Hematology [place] [phone] Alexandrea Greenwood RN Medical Care Coordination Social [...] 09/14/2016 9:10 AM EST Message received from bilingual secretary: Injection/Infusion Referral Call placed to [facility] Infusion Room Spoke charis Bragg. Services to be provided for pt are: Miles 09/16/16 Mahsa confirmed they would provide services to pt and would contact with appointment time. Pt aware to expect the phone call ??orders faxed to [phone]). documented in this encounter Plan of Treatment Upcoming Encounters Date Type Department Care Team (Late st Contact Info) Description 05/29/2024 2:00 PM EDT Hospital Encounter [facility] [place] [phone] Markel Borjas MD [facility] [address] [place] [address] 05/29/2024 2:00 PM EDT - 05/29/2024 2:43 PM EDT Surgery [facility] [place] [phone] Markel Borjas MD [facility] [address] [place] [address] (OSC MSURG) BONE MARROW BIOPSY AND ASPIRATION; DIAGNOSTIC (WRVU 1.44) 06/23/2024 2:00 PM EST Office Visit Hematology [place] [phone] Markel Borjas MD [facility] [address] [place] [address] 03/01/2025 4:15 PM EDT Office Visit Dermatology at [address] [place] [phone] Marek Bonilla MD [address], [place] [address] Scheduled Procedures Name Priority Associated Diagnoses Date/Ti me (OSC MSURG) BONE MARROW BIOPSY AND ASPIRATION; DIAGNOSTIC (WRVU 1.44) Anemia, in pt with longstanding neutropenia 05/29/2024 2:00 PM EDT documented as of this encounter Visit Diagnoses Not on filedocumented in this encounter Care Teams [place] Department Worker Relationship Specialty Start Date End Date Deborah Quiroga APRN PCP - General Family Medicine 03/24/16 02/04/23 documented as of this encounter
--- OUTSIDE RECORDS SUMMARY | 2024-05-16 15:40 | XMS_ITS | Encounter Summary ---
Author Organization [facility] [place] [address] Care Team Providers Care Solar Sales Representative Name Role Phone Ashley Quirogan Cornelius ANURAG Primary Care Provider [phone] Reason for Referral * Consultation (Routine) - Specialty Diagnoses / Procedures Referred By Contact Referred To Contact Cardiac Rehabilitation Diagnoses S/P AVR Alirio Esparza MD [facility] [place] [address] Cardiac Rehab, [address] [place] [address] Referral ID Status Reason Start Date Expiration Date V isits Requested Visits Authorized [id number] Consult, Test & Treat 09/25/2016 03/24/2017 36 36 Reason for Visit * Auth/Cert Specialty Diagnoses / Procedures Referred By Contkrystle t Referred To Contact Diagnoses Aortic stenosis Procedures PRO REPLACE AORT VALV, PROSTH VALV @REPLACE AORTIC VALVE, OPEN, W\CPB, W\PROSTHETIC VALVE (WRVU 41.32) Referral ID Status Reason Start Date Expiration Date Visits Re quested Visits Authorized [id number] 1 1 Encounter Details Date Type Department Care Team (Latest Contact Info) Description 09/21/2016 6:08 AM EST - 09/25/2016 4:33 PM EST Hospital Encounter Inter[place] [phone] Alirio Esparza MD Aortic valve stenosis, unspecified [...] Patient Age: 61 y.o. Birthdate: 1955 Language: Frisian Race: White Ethnicity: Not nor Admit Date: 09/21/2016 Discharge Date: 09/25/2016 Attending Physician: Alirio Esparza MD Follow-up Recommendations for Providers: Please continue routine management of cardiovascular risk factors including blood pressure, lipids,glucose, etc. Please note any changes to medications. Patient to follow-up with PCP, Deborah Quiroga APRN, in 1-2 weeks. Patient to follow-up with Title Camera Operator, Dr. Antelmo Burrell, in two weeks. Patient to follow-up with Cardiac Surgery, Dr. Alirio Esparza, to be scheduled for before 10/19/2016, with CXR, EKG, and Echo. Inpatient Provider Contact Information: [facility] [place] [facility] [place] [address] FAX [phone] Discharge Diagnoses (Hospital Problems) Primary Diagnoses: Secondary [...] performed by Alirio Esparza MD at [facility] MA[facility] OR ??? Pro aortoplas for supravalv sten N/A 09/21/2016 @AORTOPLASTY FOR SUPRAVALVULAR STENOSIS (WRVU 29.33) performed by Alirio Esparza MD at [facility] MA[facility] OR Prior To Admission Medications [...] Hospital Course: Purnima Thacker was admitted to [facility] on 09/21/2016 via the Same [...] Alirio Esparza and/or the Cardiac Surgery Physician Detective Youth Bureau Team may be reached at . Antibiotic prophylaxis: You will need to take antibiotics prior to many invasive tests and treatments, such as dental cleaning, which should be done every 6 months. Your primary care physician or your dentist can prescribe this medication. Please refer to the card with the [place] [employer] Guidelines for more information. You have been provided with 3 copies of this card. Keep one for your self. Give one to your primary care physician and one to your dentist. Please refer to the [place] [employer] Guidelines for more information. [...] Dr. Alirio Jones. You may use a Sheldon Track or treadmill but avoid any pulling [...] should resume a low fat, low cholesterol, [place] [employer] Diet. Driving: No driving [...] outpatient Phase 2 Cardiac Rehabilitation at [facility]. The patient agrees to a referral to this program. The referral will be sent at discharge and the patient should be contacted by the program within 1- 2 weeks from discharge. Future Appointments and Orders Future Appointments Provider Department Dept Phone 11/20/2016 11:30 AM Markel Borjas MD [facility] [phone] Future Orders Complete By Expires Echocardiogram Transthoracic([facility]) [YCF907 Custom] 10/18/2016 (Approximate) 09/18/2017 Process Instructions: If the Echocardiogram is to be PERFORMED in a location other than [place]--STOP and order [id number], Echocardiogram South/External. Scheduling Instructions: Questions: Is a Bubble Study requested?: No Does the patient have Congenital Heart Disease?: No Does patient require sedation?: None GA rationale: Should this service be billed to the research sponsor?: EKG 12 Lead [EKG1 Custom] 10/18/2016 (Approximate) 09/25/2017 Process Instructions: Scheduling Instructions: Questions: Which location will this be performed?: [place] Is a rhythm strip needed?: No If EKG Reason is Pre-op Evaluation, indicate diagnosis for surgery.: Should this service be billed to the research sponsor?: XR Chest PA & Lateral (Generic) [31917 [id number] Custom] 10/18/2016 (Approximate) 09/25/2017 Process Instructions: Scheduling Instructions: Questions: Where will study be performed?: [facility]- Radiology Portable exam?: No Reason for exam and clinical history: s/p AVReplacement, patch annuloplasty 1 month f/u Other pertinent information: Stat read required?: Date of injury if applicable: Requested Time: Referral to Cardiac Rehab [UKR005 Custom] As directed Process Instructions: If no progress note charted, please enter Clinical details in comments. Scheduling Instructions: Questions: My question or request is: s/p AVR. Cardiac rehab at [facility] Referral to Home Health - at DISCHARGE [PUW0946 CPT(R)] As directed Process Instructions: Scheduling Instructions: Comments: DOCUMENTATION FOR VNA SERVICES (INCLUDING THOSE PATIENTS WITH MEDICARE COVERAGE REQUIRING HOME VNA SERVICES AND/OR HOSPICE SERVICES) PATIENT'S LOCATION: Purnima Magalie Kirstie [address] [place] [phone] (home) No relevant phone numbers on file. Cryogenic Transport Driver's Name: self In discussion with the attending physician, it is certified that this patient is under their care and that they, or a Nurse Practitioner, or Physician Detective Youth Bureau who is working directly with them, hada [...] for services as follows: HOME HEALTH AGENCY: [facility] PHONE: [phone] FAX: [phone] RN orders: Cardiopulmonary assessment, incisional assessment, assess [...] issues please call the Cardiac SurgeryOffice at [phone] FOR MEDICARE ONLY: In discussion with the [...] AFTER 09/30/16 Signed: Crispin Aranda PA-C 09/25/2016 [facility] [place] of [place]iac [place] [facility] [place] [address] FAX [phone] Date: 09/25/2016 CC: ANURAG Alford Caryn E, APRN [address] [place] [address] documented in this encounter Discharge Instructions * [...] Alirio Esparza and/or the Cardiac Surgery Physician Detective Youth Bureau Team may be reached at . Antibiotic prophylaxis: You will need to take antibiotics prior to many invasive tests and treatments, such as dental cleaning, which should be done every 6 months. Your primary care physician or your dentist can prescribe this medication. Please refer to the card with the [place] [employer] Guidelines for more information. You have been provided with 3 copies of this card. Keep one for your self. Give one to your primary care physician and one to your dentist. Please refer to the [place] [employer] Guidelines for more information. [...] Dr. Alirio Jones. You may use a Sheldon Track or treadmill but avoid any pulling [...] should resume a low fat, low cholesterol, [place] [employer] Diet. Driving: No driving [...] outpatient Phase 2 Cardiac Rehabilitation at [facility]. The patient agrees to a referral [...] PM EST Cardiac Surgery Progress Note: ID: [id number] S/p AVR, patch aortoplasty POD#2. PMH of [...] Gas) No results found for: PHART, PO2ART, ZWP1GUH Assessment/Plan: TPW out this am. (+) BM. [...] Signed: Crispin Aranda PA-C 09/24/2016 Team pager: [phone]; [phone] after 5pm [facility] Section of Cardiac Surgery * Leonor Henson, CALENDER SUPERVISOR - 09/23/2016 10:48 AM EST Cardiac Surgery Progress Note: ID: [id number] s/p AVR, patch aortoplasty POD#2. PMH of [...] Gas) No results found for: PHART, PO2ART, [id number] Assessment/Plan: s/p AVR, patch aortoplasty POD#2. PMH [...] Surgeon on rounds. Signed: Leonor Henson APRN [facility] Section of Cardiac Surgery Date: 09/23/2016 * Nico Palacios PA - 09/22/2016 9:56 AM EST Cardiac Surgery Progress Note: ID: [id number] s/p AVR, patch aortoplasty POD#1. PMH of [...] NT, ND, soft. Ext: Moves all extremities. Wagoner, well perfused. Incisions: C/D/I Tubes/Lines/Drains: PIV, leanna, [...] Attending Surgeon on rounds. Signed: EKATERINA KIM [facility] Section of Cardiac Surgery Date: [...] with outpatient services Lalitha Cohen SPTA Pager: [phone] Inpatient Physical Therapy Patient status, treatment interventions, and goals discussed with student. I am in agreement with all details and associated flowsheet rows as documented and was present for all aspects of the patient treatment session. Nerykatrina Jaramillo, [facility] Pager [phone] Problem: Acute Rehab Services Goal & Intervention Plan Goal: Bed Mobility Goal Stand Alone Therapy Goal Outcome: Ongoing (Interventions Implemented as Appropriate) 09/22/16 16109/25/16 09 Bed Mobility Goal Bed Mobility Goal, Time to Achieve 4 days -- Bed Mobility Goal, Activity Type scoot/bridge;supine to sit/sit to supine -- Bed Mobility Goal, Borden Level independent -- Bed Mobility Goal, Additional [...] Achieve 4 days -- Gait Training Goal, Borden Level independent -- Gait Training Goal, Distance [...] assist, home with home health Lalitha Cohen [facility] Pager: [phone] Inpatient Physical Therapy Patient status, treatment interventions, and goals discussed with student. I am in agreement with all details and associated flowsheet rows as documented and was present for all aspects of the patient treatment session. Nery Jaramillo, [facility] Pager [phone] Problem: Acute Rehab Services Goal & Intervention Plan Goal: Bed Mobility Goal Stand Alone Therapy Goal Outcome: Ongoing (Interventions Implemented as Appropriate) 09/22/16 16109/23/16 1412 Bed Mobility Goal Bed Mobility Goal, Time to Achieve 4 days -- Bed Mobility Goal, Activity Type scoot/bridge;supine to sit/sit to supine -- Bed Mobility Goal, Borden Level independent -- Bed Mobility Goal, Additional [...] Achieve 4 days -- Gait Training Goal, Borden Level independent -- Gait Training Goal, Distance [...] days -- Transfer Training Goal, Activity Type czg-xe-yxehb/mucbd-iw-kti;chc-rg-gqyoi/yctri-gr-lat -- Transfer Train Goal, Borden Level independent -- Transfer Training Goal, Additional Goal abides sternal precautions -- Transfer Training Goal, Outcome -- goal met * Consult Note - Jnaa Crenshaw RN - 09/23/2016 9:41 AM EST [facility] [place] CARDIAC REHABILITATION Purnima Thacker was seen today regarding participation in the outpatient Phase 2 Cardiac Rehabilitation at [facility]. The patient agrees to a referral [...] Another Service: (cardiac rehab) NICOLE HERNANDEZ, PT Pager:[phone] Inpatient Physical Therapy Problem: Acute Rehab Services Goal & Intervention Plan Goal: Bed Mobility Goal Stand Alone Therapy Goal Outcome: Ongoing (Interventions Implemented as Appropriate) 09/22/16 1611 Bed Mobility Goal Bed Mobility Goal, Time to Achieve 4 days Bed Mobility Goal, Activity Type scoot/bridge;supine to sit/sit to supine Bed Mobility Goal, Borden Level independent Bed Mobility Goal, Additional Goal able to abide sternal precautions during transfers Goal: Gait Training Goal Stand Alone Therapy Goal Outcome: Ongoing (Interventions Implemented as Appropriate) 09/22/16 1611 Gait Training Goal Gait Training Goal, Date Established 09/22/16 Gait Training Goal, Time to Achieve 4 days Gait Training Goal, Borden Level independent Gait Training Goal, Distance to Achieve ascend and descends 2 steps independently Goal: Goal Transfer Training Stand Alone Therapy Goal Outcome: Ongoing (Interventions Implemented as Appropriate) 09/22/16 1611 Goal Transfer Training Transfer Training Goal, Time to Achieve 4 days Transfer Training Goal, Activity Type irg-xy-txqcq/ifdiw-qp-rui;kld-kr-gedod/exwpt-pn-oiq Transfer Train Goal, Borden Level independent Transfer Training Goal, Additional Goal [...] of completing AD's at home, chooses her fsuval-yj-hen, Martha Thacker (home) for her [facility], 2nd choice in friend, Nitesh Leroy [place], [place] Current Coping/Education/Information Needs: patient sitting up [...] who live close by, [place], and her celrwt-yh-vyf Martha Thacker who she has chosen to be her DPOAH. Also has a friend Nitesh Leroy who lives in [place], [place], also her DPOAH choice. Behavioral Health History: none on file in [facility] Substance Use/Abuse: none on file in [facility] Other Pertinent/Service Specific Information: none Health/Prescription Coverage: Primary Insurance: [employer] Secondary Insurance: none Prescription Coverage: yes, per patient no issues Preferred Pharmacy: ?? Other: none Primary Care Provider: Deborah Quiroga, CALENDER SUPERVISOR [phone] Patient/Caregiver Goals of Treatment: per medical team recommendations at discharge for CT surgery Potential Needs for Transition of Care: Rehab/SNF: TBD Home Health: TBD DME: no Dialysis: no Community Resources: non3 Transportation: ride home with a friend Other: none Anticipated Barriers to Discharge/Special Considerations: none anticipated at this time Plan: patient will need VNA services at discharge. The patient/policy services representative has been provided a list of Home Health Agencies/DME vendors which servetheir preferred geographic area. A letter describing our affiliations was reviewed with them and they were educated about their right to choose where referrals are placed. Patient requests referral to: [facility]. PHONE: [phone] FAX: [phone] Expected date of discharge: Fri/Sat? CM called VNA to confirm referral, talked with VALDO Bunn/intake who stated she was familiar w/patient & would monitor her progress through curaspan. Referral routed to the Commission Sales Associate for matching with agency/vendor and to provide any required information. A member of the Care Management team will continue to monitor progress, follow for continuity of care and assist with transition of care planning. Amanda Moreno RN Pager: [phone] * Op Note - Alirio Esparza MD - 09/21/2016 12:53 PM EST 09/23/2016 Purnima Thacker 1955 [id number] Preoperative Diagnosis: Symptomatic aortic stenosis Postoperative Diagnosis: Symptomatic aortic stenosis Procedure: Aortic valve replacement: Bovine Pericardial 25 mm Surgeon: Alirio Esparza M.D. Detective Youth Bureau: Philip BALL Anesthesia: General endotracheal anesthesia Drains: [...] MD 09/21/2016 * Brief Op Note - lAirio Esparza MD - 09/21/2016 12:19 PM EST Brief Operative Note Patient Name: Purnima Thacker : [id number] MR#: [id number] Case Date: 09/21/2016 Surgeon: Surgeon(s) and Role: * Alirio Esparza MD - Primary * Nico Palacios PA - Physician Detective Youth Bureau Preoperative diagnosis: Postoperative diagnosis: Procedure(s) (LRB): @REPLACE [...] PM EDT Hospital Encounter [place] [phone] Markel Borjas MD [facility] [place] [address] 05/29/2024 2:00 PM EDT - 05/29/2024 2:43 PM EDT Surgery [place]patient [place] [phone] Markel Borjas MD [facility] [place] [address] (OSC MSURG) BONE MARROW BIOPSY AND ASPIRATION; DIAGNOSTIC (WRVU 1.44) 06/23/2024 2:00 PM EST Office Visit [place] [phone] Markel Borjas MD [facility] [place] [address] 03/01/2025 4:15 PM EDT Office Visit Dermatology at [address] [place] [phone] Marek Bonilla MD [address], [place] [address] Scheduled Orders Name Type Priority Associated Diagnoses [...] DEVICES SCAN 09/26/2016 12:00 AM EST DIE HARDENER SCAN 09/26/2016 12:00 AM EST POTASSIUM Routine [...] EXT O RDR/RSLT * SCAN DOC: DIE HARDENER (09/26/2016 12:00 AM EST) Anatomical Region Laterality Modality Other Narrative 09/26/2016 12:00 AM EST Ordered by an unspecified provider. Scanning Provider MEDIA MGR SCAN EXT O RDR/RSLT * Potassium (09/25/2016 4:32 AM EST) Potassium 4.4 3.5 - 5.0 mmol/L [place] [...] MD CHEMISTRY ORDERABLE S Performing Organization Address City/[facility]/[place]IP [place] [address] * (ABNORMAL) Differential, Automated (09/24/2016 9:56 AM EST) Neutrophil % 76.8 % [facility] Neutrophil Absolute 7.79(H) 1.70 - 6.10 x10(3)/mc L [facility] Lymph % 11.1 % [facility] Lymphocytes Abs 1.1 0.9 - 3.2 x10(3)/ L [facility] Monocyte % 8.5 % [facility] Monocyte Abs 0.9 0.3 - 0.9 x10(3)/[facility] Eos % 0.5 % [facility] Eosinophils Abs 0.0 0.0 - 0.4 x10(3)/[facility] Basophil % 0.2 % [facility] Baso Absolute 0.0 0.0 - 0.1 x10(3)/ L [facility] Immature Gran % 2.90 % [facility] Comment: Immature granulocytes(IG's)percentage and absolute count will include metamyelocytes, myelocytes, and promyelocytes. Blood smears from CBCs yielding IG's will be scanned manually for concordance. If this scan disagrees with the automated IG or if promyelocytes are noted, a manual differential will be performed. Immature Gran Absolute 0.29(H) 0.00 - 0.04 x10(3)/ L [facility] Blood specimen (specimen) 09/24/2016 9:56 AM EST 09/24/2016 10:04 AM EST Narrative Resulting Agency Comment Spec In Lab Alirio Esparza MD HEMATOLOGY ORDERABL ES Performing Organization Address City/[facility]/ZIP Co de Phone Number [facility] [place] [address] * (ABNORMAL) Hemogram (09/24/2016 9:56 AM EST) [facility] White Blood Cell 10.1(H) 4.0 - 9.5 x10(3)/mc L [facility] Red Blood Cell 2.87(L) 4.00 - 5.21 x10(6)/mc L [facility] Hemoglobin 9.4(L) 11.7 - 15.5 [...] RDW Standard Deviation 45.0 37.0 - 46.0 [facility] RDW coefficient of variation 12.6 11.5 - 14.1 % [facility] Mean Platelet Volume 9.4 7.6 - 12.9 fL [facility] NRBC% auto 1.1 % [facility] NRBC Absolute 0.110(H) 0.000 - 0.000 x10(3)/mc L [facility] Blood specimen (specimen) 09/24/2016 9:56 AM EST 09/24/2016 10:04 AM EST Narrative Resulting Agency Comment Spec In Lab Alirio Esparza MD HEMATOLOGY ORDERABL ES [facility] [place] [address] * (ABNORMAL) Basic Metabolic Panel (non-fasting) (09/24/2016 [...] the following links into your internet browser. [email or web address] Blood specimen (specimen) 09/24/2016 9:56 AM EST 09/24/2016 10:04 AM EST Narrative Resulting Agency Comment Spec In Lab Alirio Esparza MD CHEMISTRY ORDERABLE S [facility] [place] [address] * XR Chest PA & Lateral (Generic) [...] CHEMISTRY ORDERABLE S Performing Organization Address [facility] Co de Phone Number [facility] [place] [address] * POCT Glucose (09/22/2016 8:17 AM EST) Glucose, POC 131 65 - 199 mg/dL [facility] Comment: Supplemental ranges: <140 mg/dL before meals <180 mg/dL all other times of the day Blood specimen (specimen) 09/22/2016 8:17 AM EST 09/22/2016 8:17 AM EST Alirio Esparza MD POINT OF CARE TEST ORDERABLES Performing Organization Address [facility] Phone Number [facility] [place] [address] * POCT Glucose (09/22/2016 4:01 AM EST) Glucose, POC 135 65 - 199 mg/dL [facility] Comment: Supplemental ranges: <140 mg/dL before meals <180 mg/dL all other times of the day Blood specimen (specimen) 09/22/2016 4:01 AM EST 09/22/2016 4:01 AM EST Alirio Esparza MD POINT OF CARE TEST ORDERABLES Performing Organization Address [facility] Co de Phone Number [facility] [place] [address] * Scan, Peripheral Blood (09/22/2016 4:00 AM EST) Plat estimate Normal [facility] RBC Morphology Abnormal [facility] Macrocyte 1-5 /HPF [facility] Plat, Giant Less than 1 /HPF [facility] Blood specimen (specimen) 09/22/2016 4:00 AM EST 09/22/2016 4:34 AM EST Narrative Resulting Agency Comment Spec In Lab Alirio Esparza MD HEMATOLOGY ORDERABL ES Performing Organization Address [facility]/ZIP Co de Phone Number [facility] [place] [address] * Electrolytes panel (09/22/2016 4:00 AM EST) [facility] Sodium 145 135 - 145 mmol/L [place] [...] CHEMISTRY ORDERABLE S Performing Organization Address [facility] Co de Phone Number [facility] [place] [address] * (ABNORMAL) Differential, Automated (09/22/2016 4:00 AM EST) [facility] Neutrophil % 70.9 % [facility] Neutrophil Absolute 5.33 1.70 - 6.10 x10(3)/mc L [facility] Lymph % 9.1 % [facility] Lymphocytes Abs 0.7(L) 0.9 - 3.2 x10(3)/mc L [facility] Monocyte % 18.0 % [facility] Monocyte Abs 1.4(H) 0.3 - 0.9 x10(3)/mc L [facility] Eos % 0.0 % [facility] Eosinophils Abs 0.0 0.0 - 0.4 x10(3)/mc L [facility] Basophil % 0.1 % [facility] Baso Absolute 0.0 0.0 - 0.1 x10(3)/[facility] Immature Gran % 1.90 % [facility] Comment: Immature granulocytes(IG's)percentage and absolute count will include metamyelocytes, myelocytes, and promyelocytes. Blood smears from CBCs yielding IG's will be scanned manually for concordance. If this scan disagrees with the automated IG or if promyelocytes are noted, a manual differential will be performed. Immature Gran Absolute 0.14(H) 0.00 - 0.04 x10(3)/[facility] Blood specimen (specimen) 09/22/2016 4:00 AM EST 09/22/2016 4:34 AM EST Narrative Resulting Agency Comment Spec In Lab Alirio Esparza MD HEMATOLOGY ORDERABL ES Performing Organization Address City/State/[facility] Co de Phone Number [facility] [place] [address] * (ABNORMAL) Hemogram (09/22/2016 4:00 AM EST) White Blood Cell 7.5 4.0 - 9.5 x10(3)/[facility] Red Blood Cell 2.93(L) 4.00 - 5.21 x10(6)/[facility] Hemoglobin 9.2(L) 11.7 - [...] HOSPITAL LABORATORY Platelet 161 145 - 357 x10(3)/[facility] RDW Standard Deviation 44.0 37.0 - 46.0 fL [place] [facility] RDW coefficient of variation 12.6 11.5 - 14.1 % [facility] Mean Platelet Volume 9.3 7.6 - 12.9 fL [facility] NRBC% auto 0.3 % [facility] NRBC Absolute 0.020(H) 0.000 - 0.000 x10(3)/mc L [facility] Blood specimen (specimen) 09/22/2016 4:00 AM EST 09/22/2016 4:34 AM EST Narrative Resulting Agency Comment Spec In Lab Alirio Esparza MD HEMATOLOGY ORDERABL ES [facility] [place] [address] * (ABNORMAL) Cardiac Enzymes (09/22/2016 4:00 AM EST) Troponin-T 0.13(H) <=0.03 ng/mL [facility] [...] consensus document of the Joint Society of Cardiology/[place] [employer]iology Committee for the redefinition of myocardial infarction. ??Journal of the [place] College of Cardiology 2000; 36: 959-969] Creatine Kinase 338(H) 0 - 160 unit/L [facility] Blood specimen (specimen) 09/22/2016 4:00 AM EST 09/22/2016 4:34 AM EST Narrative Resulting Agency Comment Spec In Lab Alirio Esparza MD CHEMISTRY ORDERABLE S Performing Organization Address [facility] Co de Phone Number [facility] [place] [address] * (ABNORMAL) Glucose, fasting (09/22/2016 4:00 AM [...] of Diabetes Mellitus, Position Statement from the [place] [employer]. ??Diabetes Care, Volume 33, Supplement 1, Aug 2009 Blood specimen (specimen) 09/22/2016 4:00 AM EST 09/22/2016 4:34 AM EST Narrative Resulting Agency Comment Spec In Lab Alirio Esparza MD CHEMISTRY ORDERABLE S Performing Organization Address [facility] Co de Phone Number [facility] [place] [address] * (ABNORMAL) Creatinine (09/22/2016 4:00 AM EST) Creatinine 0.69(L) 0.70 - 1.20 mg/dL [facility] Comment: Please note that the pediatric reference intervals supplied above were not validated at [facility]. Results from pediatric patients should be interpreted in conjunction to the patient's age, height and muscle mass. Est Glomerular Filtration Rate >60 >=60 [address] [...] the following links into your internet browser. [email or web address] Blood specimen (specimen) 09/22/2016 4:00 AM EST 09/22/2016 4:34 AM EST Narrative Resulting Agency Comment Spec In Lab Alirio Esparza MD CHEMISTRY ORDERABLE S Performing Organization Address [facility] Co de Phone Number [facility] [place] [address] * BUN (09/22/2016 4:00 AM EST) Blood Urea Nitrogen 10 8 - 18 mg/dL [facility] Blood specimen (specimen) 09/22/2016 4:00 AM EST 09/22/2016 4:34 AM EST Narrative Resulting Agency Comment Spec In Lab Alirio Esparza MD CHEMISTRY ORDERABLE S Performing Organization Address [facility] Co de Phone Number [facility] [place] [address] * POCT Glucose (09/21/2016 9:59 PM EST) Glucose, POC 146 65 - 199 mg/dL [facility] Comment: Supplemental ranges: <140 mg/dL before meals <180 mg/dL all other times of the day Blood specimen (specimen) 09/21/2016 9:59 PM EST 09/21/2016 9:59 PM EST Alirio Esparza MD POINT OF CARE TEST ORDERABLES Performing Organization Address [facility] Co de Phone Number [facility] [place] [address] * POCT Glucose (09/21/2016 7:26 PM EST) Glucose, POC 152 65 - 199 mg/dL [facility] Comment: Supplemental ranges: <140 mg/dL before meals <180 mg/dL all other times of the day Blood specimen (specimen) 09/21/2016 7:26 PM EST 09/21/2016 7:26 PM EST Alirio Esparza MD POINT OF CARE TEST ORDERABLES [facility] [place] [address] * POCT Glucose (09/21/2016 6:00 PM EST) [...] [facility] Co de Phone Number [facility] [place] [address] * (ABNORMAL) BLOOD GAS 2 ARTERIAL (09/21/2016 [...] [facility] FIO2 Art 40 % [facility] PF Ratio Art 270 [facility] Blood specimen (specimen) 09/21/2016 4:42 PM EST 09/21/2016 4:42 PM EST Alirio Esparza MD POINT OF CARE TEST ORDERABLES [facility] [place] [address] * POCT Glucose (09/21/2016 4:07 PM EST) Glucose, POC 150 65 - 199 mg/dL [facility] Comment: Supplemental ranges: <140 mg/dL before meals <180 mg/dL all other times of the day Blood specimen (specimen) 09/21/2016 4:07 PM EST 09/21/2016 4:07 PM EST Alirio Esparza MD POINT OF CARE TEST ORDERABLES Performing Organization Address [facility] Phone Number [facility] [place] [address] * (ABNORMAL) Hemoglobin (09/21/2016 4:05 PM EST) Hemoglobin 9.9(L) 11.7 - 15.5 gm/dL [facility] Blood specimen (specimen) 09/21/2016 4:05 PM EST 09/21/2016 4:20 PM EST Narrative Resulting Agency Comment Spec In Lab Alirio Esparza MD HEMATOLOGY ORDERABL ES Performing Organization Address [facility] Phone Number [facility] [place] [address] * Potassium (09/21/2016 4:05 PM EST) [facility] Potassium 4.6 3.5 - 5.0 mmol/L [facility] [...] ORDERABLE S Performing Organization Address [facility] Co de Phone Number [facility] [place] [address] * POCT Glucose (09/21/2016 2:52 PM EST) Glucose, POC 117 65 - 199 mg/dL [facility] Comment: Supplemental ranges: <140 mg/dL before meals <180 mg/dL all other times of the day Blood specimen (specimen) 09/21/2016 2:52 PM EST 09/21/2016 2:52 PM EST Alirio Esparza MD POINT OF CARE TEST ORDERABLES Performing Organization Address [facility] de Phone Number [facility] [place] [address] * POCT Glucose (09/21/2016 1:51 PM EST) Glucose, POC 108 65 - 199 mg/dL [facility] Comment: Supplemental ranges: <140 mg/dL before meals <180 mg/dL all other times of the day Blood specimen (specimen) 09/21/2016 1:51 PM EST 09/21/2016 1:51 PM EST Alirio Esparza MD POINT OF CARE TEST ORDERABLES Performing Organization Address [facility] Phone Number [facility] [place] [address] * POCT Glucose (09/21/2016 12:54 PM EST) Glucose, POC 128 65 - 199 mg/dL [facility] Comment: Supplemental ranges: <140 mg/dL before meals <180 mg/dL all other times of the day Blood specimen (specimen) 09/21/2016 12:54 PM EST 09/21/2016 12:54 PM EST Alirio Esparza MD POINT OF CARE TEST ORDERABLES Performing Organization Address [facility] Phone Number [facility] [place] [address] * EKG 12 Lead (09/21/2016 12:26 PM EST) Ventricular rate 87 BPM MUSE SYSTEM Atrial Rate 87 BPM MUSE SYSTEM P-R Interval 256 ms MUSE SYSTEM QRS Duration 90 ms MUSE SYSTEM Q-T Interval 406 ms MUSE SYSTEM QTC Calculated (Bezet) 488 ms MUSE SYSTEM Calculated P [place] 24 degrees MUSE SYSTEM Calculated R [place] 21 degrees MUSE SYSTEM Calculated T [place] -5 degrees MUSE SYSTEM INTERPRETATION Sinus rhythm with 1st degree A-V block Nonspecific T wave abnormality Prolonged QT Abnormal ECG When compared with ECG of 18-OCT-2016 11:43, MI interval has increased T wave inversion now [...] course of the esophagus and below the [id number]. There is a right IJ PA catheter [...] the course of theesophagus and below the [id number]. There is a right IJ PA catheter [...] [facility] FIO2 Art 100 % [facility] PF Ratio Art 356 [facility] Blood specimen (specimen) 09/21/2016 12:20 PM EST 09/21/2016 12:20 PM EST Alirio Esparza MD POINT OF CARE TEST ORDERABLES [facility] [place] [address] * (ABNORMAL) BLOOD GAS 2 ARTERIAL (09/21/2016 [...] [facility] FIO2 Art 95 % [facility] Flow Art 0.7 LPM [facility] PF Ratio Art 313 [facility] Temp Art 36.7 Celsius [facility] Blood specimen (specimen) 09/21/2016 10:54 AM EST 09/21/2016 10:54 AM EST Alirio Esparza MD POINT OF CARE TEST ORDERABLES Performing Organization Address [facility] [place] [address] * Thrombin time (09/21/2016 10:50 AM EST) [...] HEMATOLOGY ORDERABLE S Performing Organization Address [facility]/ZIP Co de Phone Number [facility] [place] [address] * Fibrinogen (09/21/2016 10:50 AM EST) Fibrinogen 228 180 - 510 mg/dL [facility] Comment: Called by: JONNATHAN, Read back by: MICHELLE ANTAL_, Date/Time:09/21/16 11:11. A fibrinogen level >100 mg/dL is adequate for hemostasis in most patients without underlying bleeding disorders. Blood specimen (specimen) 09/21/2016 10:50 AM EST 09/21/2016 10:56 AM EST Narrative Resulting Agency Comment Spec In Lab Luis Enrique Quarles MD HEMATOLOGY ORDERABLE S Performing Organization Address [facility] Co de Phone Number [facility] [place] [address] * APTT (09/21/2016 10:50 AM EST) Partial Thromboplastin Time 32 25 - 35 sec [facility] Comment: The recommended therapeutic range for full dose, unfractionated heparin at [facility] is 80 ? [...] ORDERABLE S Performing Organization Address [facility] de Phone Number [facility] [place] [address] * (ABNORMAL) Prothrombin Time (09/21/2016 10:50 AM [...] ORDERABLE S [facility] [place] [address] * (ABNORMAL) Hemogram (09/21/2016 10:50 AM EST) [...] [facility] NRBC% auto 0.1 % [facility] NRBC Absolute 0.020(H) 0.000 - 0.000 x10(3)/mc L [facility] Blood specimen (specimen) 09/21/2016 10:50 AM EST 09/21/2016 10:56 AM EST Narrative Resulting Agency Comment Spec In Lab Luis Enrique Quarles MD HEMATOLOGY ORDERABLE S Performing Organization Address City/[facility]/Z[place] [address] * Prepare Platelets, Apheresis (09/21/2016 10:30 AM EST) Dispensed? Yes [facility] Blood specimen (specimen) 09/21/2016 10:30 AM EST 09/21/2016 10:28 AM EST Alirio Esparza MD BLOOD BANK PRODUCT ORDERABLES Performing Organization Address [facility] [place] [address] * (ABNORMAL) BLOOD GAS 2 ARTERIAL (09/21/2016 10:05 AM EST) pH, Arterial 7.33(L) 7.35 - 7.45 [facility] PCO2, Arterial 54(Critic al) 35 - 45 mmHg [facility] Comment:Noted by instrumentation engineering technician. PO2, Arterial 218(H) 85 - 104 [...] [facility] Comment: Noted by instrumentation engineering technician. Please note: Patients with WBC >100,000 [...] [facility] Temp Art 37.0 Celsius [facility] Blood specimen (specimen) 09/21/2016 10:05 AM EST 09/21/2016 10:05 AM EST Alirio Esparza MD POINT OF CARE TEST ORDERABLES [facility] [place] [address] * (ABNORMAL) BLOOD GAS 2 ARTERIAL (09/21/2016 9:44 AM EST) pH, Arterial 7.22(Criti gabrielle) 7.35 - 7.45 [facility] Comment:Noted by instrumentation engineering technician. PCO2, Arterial 70(Critica l) 35 - 45 mmHg [facility] Comment:Noted by instrumentation engineering technician. PO2, Arterial 224(H) 85 - 104 [...] [facility] Co de Phone Number [facility] [place] [address] * (ABNORMAL) Hemoglobin (09/21/2016 9:42 AM EST) Hemoglobin 7.2(L) 11.7 - 15.5 gm/dL [facility] Blood specimen (specimen) 09/21/2016 9:42 AM EST 09/21/2016 9:51 AM EST Narrative Resulting Agency Comment Spec In Lab Alirio Esparza MD HEMATOLOGY ORDERABL ES [facility] [place] [address] * Platelet count (09/21/2016 9:42 AM EST) Platelet 159 145 - 357 x10(3)/mc L [facility] Immature Plt % 1.6 0.0 - 7.4 % [facility] Comment: Limitation of the Immature Platelet Fraction (IPF)-May be less reliable when the platelet count is less than 47s917/uL due to statistical imprecision. The IPF value [...] in a decreased state of production. References: [employer] The Clinical Value of the Immature Platelet Fraction (IPF) in Cell Recovery Document Number 10-1143 12/2010 [employer] The Role of the Immature Platelet Fraction (IPF) in the Differential Diagnosis of Thrombocytopenia, Document MKT-[id number] V012/11/13 P014 Blood specimen (specimen) 09/21/2016 9:42 AM EST 09/21/2016 9:51 AM EST Narrative Resulting Agency Comment Spec In Lab Alirio Esparza MD HEMATOLOGY ORDERABL ES [facility] [place] [address] * (ABNORMAL) Hematocrit (09/21/2016 9:42 AM EST) [...] HEMATOLOGY ORDERABL ES Performing Organization Address [facility] Co de Phone Number [facility] [place] [address] * Fibrinogen (09/21/2016 9:42 AM EST) Fibrinogen [...] HEMATOLOGY ORDERABL ES Performing Organization Address [facility] Co de Phone Number [facility] [place] [address] * (ABNORMAL) BLOOD GAS 2 ARTERIAL (09/21/2016 [...] [facility] Temp Art 37.0 Celsius [facility] Blood specimen (specimen) 09/21/2016 9:10 AM EST 09/21/2016 9:10 AM EST Alirio Esparza MD POINT OF CARE TEST ORDERABLES Performing Organization Address City/State/[facility] Co de Phone Number [facility] [place] [address] * Surgical Pathology Report (09/21/2016 9:09 AM EST) Final Diagnosis [id number] ?Location: 3T The signing pathologist has (i) [...] Esparza MD PATHOLOGY/CYTOLOGY ORDERABLES Performing Organization Address [facility] Co de Phone Number [facility] [place] [phone] * Specimen to Pathology (surgical or derm) (09/21/2016 9:09 AM EST) AP Specimen 09/21/2016 9:09 AM EST 09/21/2016 9:09 AM EST Narrative [facility] - 09/21/2016 9:09 AM EST Specimen requisition ordered. ??Separate Pathology report to follow Alirio Esparza MD PATHOLOGY/CYTOLOGY ORDERABLES Performing Organization Address [facility]/ZIP Co de Phone Number [facility] [place] [phone] * (ABNORMAL) BLOOD GAS 2 ARTERIAL (09/21/2016 [...] TEST ORDERABLES [facility] [place] [address] * (ABNORMAL) BLOOD GAS 2 ARTERIAL (09/21/2016 [...] [facility] FIO2 Art 95 % [facility] Flow Art 1.1 LPM [facility] PF Ratio Art 298 [facility] Temp Art 35.6 Celsius [facility] Blood specimen (specimen) 09/21/2016 8:18 AM EST 09/21/2016 8:18 AM EST Alirio Esparza MD POINT OF CARE TEST ORDERABLES Performing Organization Address [facility] Co de Phone Number [facility] [place] [address] * Prepare RBC (09/21/2016 7:05 AM EST) Dispensed? Yes [facility] Blood specimen (specimen) 09/21/2016 7:05 AM EST 09/21/2016 7:02 AM EST Alirio Esparza MD BLOOD BANK PRODUCT ORDERABLES Performing Organization Address [facility] de Phone Number [facility] [place] [address] * POCT Glucose (09/21/2016 6:42 AM EST) Glucose, POC 104 65 - 199 mg/dL [facility] Comment: Supplemental ranges: <140 mg/dL before meals <180 mg/dL all other times of the day Blood specimen (specimen) 09/21/2016 6:42 AM EST 09/21/2016 6:42 AM EST Alirio Esparza MD POINT OF CARE TEST ORDERABLES Performing Organization Address [facility] de Phone Number [facility] [place] [address] documented in this encounter Visit Diagnoses Diagnosis [...] if phenyleprine and/or vasopressin ineffective.Call pager # [phone] if initiated., Routine Rate/Dose Change 09/21/2016 2:27 [...] L/min/M2. Maximum volume 2 L. Call house repairer for additional fluid orders: pager #[phone]. Rate/Dose Verify 09/22/2016 10:00 AM EST 10 mL/hr 10 mL/hr Rate/Dose Change 09/22/2016 8:12 AM EST 10 mL/hr 10 mL/h r Rate/Dose Verify 09/21/2016 2:00 PM EST 100 mL/hr 100 mL/ hr sodium chloride 0.9% infusion 10-30 mL/hr, Intravenous, DAILY PRN, Starting on Wed09/21/16 at 1206, Until Wed09/22/16 at 1036, Side port TKO rate, per [facility] nursing protocol. Rate/Dose Verify 09/21/2016 5:00 PM EST 30 mL/hr 30 mL/hr Rate/Dose Verify 09/21/2016 4:00 PM EST 30 mL/hr 30 mL/h r Rate/Dose Verify 09/21/2016 3:00 PM EST 30 mL/hr 30 mL/h r sodium chloride 0.9% infusion 10-30 mL/hr, Intravenous, DAILY PRN, Starting on Wed09/21/16 at 1206, Until Wed09/22/16 at 1036, Side port TKO rate, per [facility] nrusing protocol. Rate/Dose Verify 09/22/2016 10:00 AM [...] 0829 (Given - Provider: Marek Barnes, VALDO) 0942 (Given - Provider: Joselyn Caceres, VALDO) aspirin suppository 300 mg(Linked Group 1) 300 mg, Rectal, DAILY, First dose on Wed09/22/16 at 0900, Until Discontinued, Start on post-op day 1 in the AM, Routine 0817 (See Alternative - Provider: Elsa Miguel RN) 08 (See Alternative - Provider: Marek Barnes, VALDO) 0942 (See Alternative - Provider: Joselyn Caceres, VALDO) atorvastatin (LIPITOR) tablet 10 mg 10 mg, Oral, EVERY EVENING, First dose on Wed09/21/16 at 1700, Until Discontinued, Routine 170 (Given - Provider: Federico Apple RN) 162 (Given - Provider: Chaya Hill, VALDO) buPROPion [...] refused)2018 (Given - Provider: Federico Apple RN) 09 (Not Given - Provider: Marek Barnes, VALDO - Reason: Patient/family refused)2099 (Not Given - Provider: Alie Whitfield RN - Reason: Patient/family refused) 09 (Given - Provider: Joselyn Caceres, VALDO) fluconazole (DIFLUCAN) tablet 200 mg 200 mg, Oral, DAILY, 9 doses, First dose (after last modification) on Wed09/23/16 at 0900, Last dose on Wed10/01/16 at 0900, Routine, Indication for (Active or Suspected): Skin/Skin Structure 08 (Given - Provider: Elsa Miguel RN) [...] 08 (Given - Provider: Elsa Miguel RN) 899 [...] Marek Barnes, RN)2042 (Given - Provider: Alie Whitfield RN) [...] VALDO) 0941 (See Alternative - Provider: Joselyn Cacerse, VALDO) pantoprazole (PROTONIX) tablet 40 mg(Linked Group [...] start of shift)1022 (Given - Provider: Elsa Miguel, VALDO)2019 (Given - Provider: Federico Apple, VALDO) 0300 [...] Routine documented in this encounter Care Teams Solar Sales Representative Relationship Specialty Start Date End Date Deborah Quiroga APRN PCP - General Family Medicine 03/24/16 02/04/23 documented as of this encounter
--- OUTSIDE RECORDS SUMMARY | 2024-05-16 15:41 | XMS_ITS | Encounter Summary ---
[place] [address] Care Team Providers Care Hotel Maid Name Role Phone Deborah Quiroga ANURAG Primary Care Provider [phone] Reason for Visit * Reason Onset Date Comments Medical Care Coordination 07/31/2016 Encounter Details Date Type Department Care Team (Late st Contact Info) Description 07/31/2016 Telephone [place]ematology [place] [phone] Alexandrea Greenwood RN Medical Care Coordination Social [...] 08/04/15 RN spoke with Aydee of the [facility] lab who states they can draw pt's cbc on 08/04/15, RN faxed lab req to [phone] at Aydee's request. RN instructed pt on Dr. Borjas's direction above. Pt verbalized understanding. documented in this encounter Plan of Treatment Upcoming Encounters Date Type Department Care Team (Late st Contact Info) Description 05/29/2024 2:00 PM EDT Hospital Encounter [place] [phone] Markel Borjas MD [facility] [address] [place] [address] 05/29/2024 2:00 PM EDT - 05/29/2024 2:43 PM EDT Surgery [place] [phone] Markel Borjas MD [facility] [address] [place] [address] (OSC MSURG) BONE MARROW BIOPSY AND ASPIRATION; DIAGNOSTIC (WRVU 1.44) 06/23/2024 2:00 PM EST Office Visit Hematology [place] [phone] Markel Borjas MD [facility] [address] [place] [address] 03/01/2025 4:15 PM EDT Office Visit Dermatology at [address] [place] [phone] Marek Bonilla MD [address] [place] [address] RD, [facility] A DERMATOLOGY [place], [place] [phone] Scheduled Procedures Name Priority Associated Diagnoses Date/Ti [...]
--- OUTSIDE RECORDS SUMMARY | 2024-05-16 15:41 | XMS_ITS | Encounter Summary ---
Author Organization [facility] Address [facility] [place] [address] Care Team Providers Care Security And Privacy Consultant Name Role Phone Junaid Deborah Shields APRN Primary Care Provider [phone] Encounter Details Date Type Department Care Team (Latest Contact Info) Description 06/19/2016 - 06/19/2016 11:59 PM EST Hospital Encounter Radiology Library [place] [phone] Nitesh Pina Jr., MD [facility] HEMATOLOGY [place] [address] Pain Discharge Disposition: Home Social History Tobacco [...] PM EDT Hospital Encounter Outpatient [place] [phone] Markel Borjas MD [facility] DR HEMATOLOGY [place] [address] 05/29/2024 2:00 PM EDT - 05/29/2024 2:43 PM EDT Surgery Outpatient [place] [address] Markel Borjas MD [facility] DR HEMATOLOGY [place] [address] (OSC MSURG) BONE MARROW BIOPSY AND ASPIRATION; DIAGNOSTIC (WRVU 1.44) 06/23/2024 2:00 PM EST Office Visit [place] [address] Markel Borjas MD [facility] HEMATOLOGY [place] [address] 03/01/2025 4:15 PM EDT Office Visit Dermatology at [place] [address] [place] [address] Marek Bonilla MD [address], [place] [address] Scheduled Procedures Name Priority Associated Diagnoses Date/Ti [...] Jr., MD IMG FILM LIBRARY ORD ERABLES Performing Organization Address City/State/[facility] Co de Phone Number [place], [place] documented in this encounter Visit Diagnoses Diagnosis Pain Generalized pain documented in this encounter Care Teams Security And Privacy Consultant Relationship Specialty Start Date End Date Deborah Quiroga, GLUE BONE DRIER PCP - General Family Medicine 03/24/16 02/04/23 documented as of this encounter
--- OUTSIDE RECORDS SUMMARY | 2024-05-16 15:41 | XMS_ITS | Encounter Summary ---
Author Organization [facility] [place] [address] Care Team Providers Care C Application Developer Name Role Phone Deborah Quiroga ANURAG Primary Care Provider [phone] Encounter Details Date Type Department Care Team (Late st Contact Info) Description 07/31/2016 External Results Hematology [place] [phone] Alexandrea Greenwood RN Neutropenia, unspecified type Social [...] PM EDT Hospital Encounter [place]patient [place] [phone] Markel Borjas MD [facility] DR [place] [address] 05/29/2024 2:00 PM EDT - 05/29/2024 2:43 PM EDT Surgery [place] [phone] Markel Borjas MD [facility] DR [place] [address] (OSC MSURG) BONE MARROW BIOPSY AND ASPIRATION; DIAGNOSTIC (WRVU 1.44) 06/23/2024 2:00 PM EST Office Visit Hematology [place] [address] Markel Borjas MD [facility] [place] [address] 03/01/2025 4:15 PM EDT Office Visit Dermatology at [place] [address] [place] [phone] Marek Bonilla MD [address], [place] [address] Scheduled Procedures Name Priority Associated Diagnoses Date/Ti [...] type documented in this encounter Care Teams C Application Developer Relationship Specialty Start Date End Date Deborah Quiroga, ANURAG PCP - General Family Medicine 03/24/16 02/04/23 documented as of this encounter
--- OUTSIDE RECORDS SUMMARY | 2024-05-16 15:41 | XMS_ITS | Encounter Summary ---
Author Organization [facility] Address [facility] [place] [address] Care Team Providers Care Developmental Specialist Name Role Phone Ashley Quirogan Cornelius ANURAG Primary Care Provider [phone] Encounter Details Date Type Department Care Team (Latest Contact Info) Description 05/19/2016 11:20 AM EDT Laboratory [place] [phone] Nonrheumatic aortic valve stenosis Social History Tobacco [...] PM EDT Hospital Encounter [place]patient [place] [phone] Markel Borjas MD [facility] DR HEMATOLOGY AND [place] [address] 05/29/2024 2:00 PM EDT - 05/29/2024 2:43 PM EDT Surgery [place] [phone] Markel Borjas MD [facility] DR HEMATOLOGY AND [place] [address] (OSC MSURG) BONE MARROW BIOPSY AND ASPIRATION; DIAGNOSTIC (WRVU 1.44) 06/23/2024 2:00 PM EST Office Visit Hematology [place] [address] Markel Borjas MD [facility] DR HEMATOLOGY AND [place] [address] 03/01/2025 4:15 PM EDT Office Visit Dermatology at [place] [address] [place] [phone] Marek Bonilla MD [address], [place] [address] Scheduled Procedures Name Priority Associated Diagnoses Date/Ti [...] stenosis TYPE AND SCREEN, SDP (FUTURE SURGERY, [facility] [place] [facility]) Routine 05/19/2016 11:32 [...] [facility] RBC Morphology Normal [facility] Blood specimen (specimen) 05/19/2016 11:32 AM EDT 05/19/2016 11:41 AM EDT Narrative Resulting Agency Comment Spec In Lab Alirio Esparza MD HEMATOLOGY ORDERABL ES [facility] [place] [address] * (ABNORMAL) Differential, Automated (05/19/2016 11:32 AM EDT) Neutrophil % 25.9 % [facility] Neutrophil Absolute 0.42(Crit ical) 1.70 - 6.10 x10(3)/mc L [facility] Comment: This result has been called to DR ALIRIO ESPARZA by Alivia Ibarra on 05 19 2016 at 1228, and has been read back. Lymph % 59.9 % [facility] Lymphocytes Abs 1.0 0.9 - 3.2 x10(3)/mc L [facility] Monocyte % 13.0 % [facility] Monocyte Abs 0.2(L) 0.3 - 0.9 x10(3)/mc L [facility] Eos % 0.6 % [facility] Eosinophils Abs 0.0 0.0 - 0.4 x10(3)/mc L [facility] Basophil % 0.6 % [facility] Baso Absolute 0.0 0.0 [...] HEMATOLOGY ORDERABL ES [facility] [place] [address] * (ABNORMAL) Hemogram (05/19/2016 11:32 AM EDT) [...] Platelet 227 145 - 357 x10(3)/mc L [facility] RDW Standard Deviation 40.5 37.0 - 46.0 fL [facility] RDW coefficient of variation 11.5 11.5 - 14.1 % [facility] Mean Platelet Volume 8.4 7.6 - 12.9 fL [facility] NRBC% auto 0.0 % [facility] NRBC Absolute 0.000 0.000 - 0.000 x10(3)/mc L [facility] Blood specimen (specimen) 05/19/2016 11:32 AM EDT 05/19/2016 11:41 AM EDT Narrative Resulting Agency Comment Spec In Lab Alirio Esparza MD HEMATOLOGY ORDERABL ES Performing Organization Address [facility] Co de Phone Number [facility] [place] [address] * Antibody screen (05/19/2016 11:32 AM EDT) Ab Screen Interp Negative [facility] Expires at [id number] on: 07/03/2016 [facility] Comment: Corrected from 06/11/16 12:00 [Unknown] on 06/09/16 05:51 by Bethanie Tomlinson I.. Corrected from 07/03/16 12:00 [Unknown] on 05/21/16 06:00 by Shelia Barrera Blood specimen (specimen) 05/19/2016 11:32 AM EDT 05/19/2016 11:35 AM EDT Narrative Resulting Agency Comment Spec In Lab Alirio Esparza MD BLOOD BANK LAB ORDCornelius ALEJO Performing Organization Address [facility]/ZIP Co de Phone Number [facility] [place] [address] * ABO/Rh Typing (05/19/2016 11:32 AM EDT) ABORH Type B Pos [facility] Blood specimen (specimen) 05/19/2016 11:32 AM EDT 05/19/2016 11:35 AM EDT Narrative Resulting Agency Comment Spec In Lab Alirio Esparza MD BLOOD BANK LAB ORDE MELO Performing Organization Address City/[facility]/ZIP Co de Phone Number [facility] [place] [address] * Basic Metabolic Panel (non-fasting) (05/19/2016 11:32 AM EDT) Glucose 86 65 - 199 mg/dL [facility] Comment:Diabetes: >=200 mg/d L plus symptoms Blood Urea Nitrogen 13 8 - 18 mg/dL [facility] Creatinine 0.95 0.70 - 1.20 mg/dL [facility] Comment: Please note that the pediatric reference intervals supplied above were not validated at [facility]. Results from pediatric patients should be interpreted [...] the following links into your internet browser. [email or web address] Blood specimen (specimen) 05/19/2016 11:32 AM EDT 05/19/2016 11:41 AM EDT Narrative Resulting Agency Comment Spec In Lab Alirio Esparza MD CHEMISTRY ORDERABLE S Performing Organization Address City/State/[facility] Co de Phone Number [facility] [place] [address] documented in this encounter Visit Diagnoses Diagnosis Nonrheumatic aortic valve stenosis Aortic valve disorders documented in this encounter Care Teams Developmental Specialist Relationship Specialty Start Date End Date Deborah Quiroga APRN PCP - General Family Medicine 03/24/16 02/04/23 documented as of this encounter
--- OUTSIDE RECORDS SUMMARY | 2024-05-16 15:41 | XMS_ITS | Encounter Summary ---
Author Organization [facility] Address [facility] [place] [address] Care Team Providers Care Research Electrician Name Role Phone Junaid Deborah Shields APRN Primary Care Provider [phone] Encounter Details Date Type Department Care Team (Latest Contact Info) Description 05/19/2016 11:00 AM EDT Clinical [place] [phone] Nonrheumatic aortic valve stenosis Social History Tobacco [...] PM EDT Hospital Encounter [place] [phone] Markel Borjas MD [facility] [address] [place] [address] 05/29/2024 2:00 PM EDT - 05/29/2024 2:43 PM EDT Surgery [place] [phone] Markel Borjas MD [facility] [address] [place] [address] (OSC MSURG) BONE MARROW BIOPSY AND ASPIRATION; DIAGNOSTIC (WRVU 1.44) 06/23/2024 2:00 PM EST Office Visit Hematology [place] [phone] Markel Borjas MD [facility] [address] [place] [address] 03/01/2025 4:15 PM EDT Office Visit Dermatology at [place] [address] [place] [address] Marek Bonilla MD [address], [place] [address] Scheduled Procedures Name Priority Associated [...] (Bezet) 448 ms MUSE SYSTEM Calculated P Anton 37 degrees MUSE SYSTEM Calculated R Anton 31 degrees MUSE SYSTEM Calculated T Anton 25 degrees MUSE SYSTEM INTERPRETATION Normal sinus rhythm Normal ECG No previous ECGs available Confirmed by MD Becca, Deangelo ([id number]) on 05/19/2016 5:23:33 PM MUSE SYSTEM 05/19/2016 11:4 3 AM EDT 05/19/2016 5:23 PM EDT Alirio Esparza MD ECG ORDERABLES MUSE SYSTEM documented in this encounter Visit Diagnoses Diagnosis Nonrheumatic aortic valve stenosis Aortic valve disorders documented in this encounter Care Teams Research Electrician Relationship Specialty Start Date End Date Deborah Quiroga APRN PCP - General Family Medicine 03/24/16 02/04/23 documented as of this encounter
--- OUTSIDE RECORDS SUMMARY | 2024-05-16 15:41 | XMS_ITS | Encounter Summary ---
Author Organization [facility] Address [facility] [place] [address] Care Team Providers Care Automation Design Engineer Name Role Phone Deborah Quiroga APRN Primary Care Provider [phone] Reason for Visit * Reason Comments Schedule Office Case * Consultation (Routine) - Closed Specialty Diagnoses / Procedures Referred By Contac t Referred To Contact Hematology and Oncology Diagnoses Leukopenia Neutropenia LEUKOPENIA W/NEUTROPENIA Procedures TC PEGFILGRASTIM, 6MG, INJECTION LEUKOPENIA W/NEUTROPENIA Alirio Esparza MD [facility] CARDIOTHORACIC [place] [address] Mario Alberto Ramos Jr., MD [facility] DR HEMATOLOGY [place] [address] Referral ID Status Reason Start Date Expiration Date V isits Requested Visits Authorized [id number] Closed Consult, Test & Treat 07/17/2016 07/17/2017 1 1 Encounter Details Date Type Department Care Team (Late st Contact Info) Description 06/09/2016 3:00 PM EST Office Visit [place]ology [place] [address] Mario Alberto Ramos Jr., MD [facility] [place] [address] Cyclical neutropenia Social History Tobacco Use Types [...] PM EST Hematology Outpatient Clinic [facility] Hematology Outpatient Consult Note CC: 60 [...] Unknown See Comment Flow Cytometry Report Unknown [id number] ... HematoPathology: Flow Cytometry DIAGNOSIS 1. No [...] EDT Hospital Encounter Outpatient [place] [address] Markel Borjas MD [facility] DR HEMATOLOGY [place] [address] 05/29/2024 2:00 PM EDT - 05/29/2024 2:43 PM EDT Surgery Outpatient [place] [phone] Markel Borjas MD [facility] [address] HEMATOLOGY [place] [address] (OSC MSURG) BONE MARROW BIOPSY AND ASPIRATION; DIAGNOSTIC (WRVU 1.44) 06/23/2024 2:00 PM EST Office Visit [place] [phone] Markel Borjas MD [facility] DR HEMATOLOGY [place] [address] 03/01/2025 4:15 PM EDT Office Visit Dermatology at [place] [address] [place] [address] Marek Bonilla MD [address], [place] [address] Scheduled Procedures Name Priority Associated Diagnoses Date/Ti [...] (06/09/2016 4:53 PM EST) Flow Cytometry Report [id number] ?Location: The signing pathologist has (i) examined [...] by the Clinical Flow Cytometry Laboratory at [facility]. It has not been cleared [...] high complexity clinical laboratory testing. SPECIMEN PROCESSING [id number] Cells for immunophenotypic analysis were derived from [...] Ramos Jr., MD PATHOLOGY/CYTOLOGY O RDERABLES [facility] [place] [address] * Scan, Peripheral Blood (06/09/2016 4:53 PM EST) Plat estimate Normal [facility] RBC Morphology Normal [facility] Blood specimen (specimen) 06/09/2016 4:53 PM EST 06/09/2016 5:00 PM EST Narrative Resulting Agency Comment Spec In Lab Mario Alberto Ramos Jr., MD HEMATOLOGY ORDERABLE S [facility] [place] [address] * (ABNORMAL) Differential, Automated (06/09/2016 4:53 PM EST) Neutrophil % 27.7 % [facility] [...] 1.0 0.9 - 3.2 x10(3)/mc L [facility] Monocyte % 13.3 % [facility] Monocyte Abs 0.2(L) 0.3 - 0.9 x10(3)/mc L [facility] Eos % 0.6 % [facility] Eosinophils Abs 0.0 0.0 - 0.4 x10(3)/mc L [facility] Basophil % 1.2 % [facility] Baso Absolute 0.0 0.0 - 0.1 x10(3)/mc L [facility] Immature Gran % 0.00 % [...] 0.00 0.00 - 0.04 x10(3)/mc L [facility] Blood specimen (specimen) 06/09/2016 4:53 PM EST 06/09/2016 5:00 PM EST Narrative Resulting Agency Comment Spec In Lab Mario Alberto Ramos Jr., MD HEMATOLOGY ORDERABLE S Performing Organization Address City/[facility]/ZIP Co de Phone Number [facility] [place] [address] * (ABNORMAL) Hemogram (06/09/2016 4:53 PM EST) White Blood Cell 1.7(Criti gabrielle) 4.0 - 9.5 x10(3)/mc L [facility] Red Blood Cell 3.92(L) 4.00 - 5.21 x10(6)/mc L [facility] Hemoglobin 12.4 11.7 - 15.5 [...] [facility] NRBC% auto 0.0 % [facility] NRBC Absolute 0.000 0.000 - 0.000 x10(3)/mc L [facility] Blood specimen (specimen) 06/09/2016 4:53 PM EST 06/09/2016 5:00 PM EST Narrative Resulting Agency Comment Spec In Lab Mario Alberto Ramos Jr., MD HEMATOLOGY ORDERABLE S [facility] [place] [address] * Immunophenotyping Flow Cytometry (06/09/2016 4:53 PM EST) Immunophenotyping Flow See Comment [facility] Comment: When completed by the Pathologist, the Flow Cytometry Report ([id number]) will display under the Pathology Results section within [facility]. Specimen of unknown material (specimen) 06/09/2016 4:53 PM EST 06/09/2016 5:00 PM EST Narrative Resulting Agency Comment Spec In Lab Mario Alberto Ramos Jr., MD HEMATOLOGY ORDERABLE S [facility] [place] [address] documented in this encounter Visit Diagnoses Diagnosis Cyclical neutropenia Cyclic neutropenia documented in this encounter Care Teams Automation Design Engineer Relationship Specialty Start Date End Date Deborah Quiroga APRN PCP - General Family Medicine 03/24/16 02/04/23 documented as of this encounter
--- OUTSIDE RECORDS SUMMARY | 2024-05-16 15:41 | XMS_ITS | Encounter Summary ---
Author Organization [facility] [place] [address] Care Team Providers Care Track Repairer Helper Name Role Phone Deborah Quiroga APRN Primary Care Provider [phone] Encounter Details Date Type Department Care Team (Late st Contact Info) Description 08/18/2016 Orders [place] [phone] Alirio Esparza MD Aortic valve stenosis, unspecified [...] PM EDT Hospital Encounter Outpatient [place] [phone] Markel Borjas MD [facility] [address] [place] [address] 05/29/2024 2:00 PM EDT - 05/29/2024 2:43 PM EDT Surgery [place]patient [place] [phone] Markel Borjas MD [facility] [address] [place] [address] (OSC MSURG) BONE MARROW BIOPSY AND ASPIRATION; DIAGNOSTIC (WRVU 1.44) 06/23/2024 2:00 PM EST Office Visit [place] [address] Markel Borjas MD [facility] [address] [place] [address] 03/01/2025 4:15 PM EDT Office Visit Dermatology at [place] [address] [place] [phone] Marek Bonilla MD [address], [place] [address] Scheduled Procedures Name Priority Associated Diagnoses Date/Ti me (OSC MSURG) BONE MARROW BIOPSY AND ASPIRATION; DIAGNOSTIC (WRVU 1.44) Anemia, in pt with longstanding neutropenia 05/29/2024 2:00 PM EDT documented as of this encounter Results * Basic Metabolic Panel (non-fasting) (08/18/2016 4:50 PM EST) Pathologist [facility] [place] Glucose 82 65 - 199 mg/dL [facility] Comment:Diabetes: >=200 mg/d L plus symptoms Blood Urea Nitrogen 12 8 - 18 mg/dL [facility] [...] the following links into your internet browser. [email or web address] Blood specimen (specimen) 08/18/2016 4:50 PM EST 08/18/2016 5:03 PM EST Narrative Resulting Agency Comment Spec In Lab Alirio Esparza MD CHEMISTRY ORDERABLE S Performing Organization Address City/State/[facility] Co de Phone Number [facility] [address] documented in this encounter Visit Diagnoses Diagnosis Aortic valve stenosis, unspecified etiology documented in this encounter Care Teams Track Repairer Helper Relationship Specialty Start Date End Date Deborah Quiroga APRN PCP - General Family Medicine 03/24/16 02/04/23 documented as of this encounter
--- OUTSIDE RECORDS SUMMARY | 2024-05-16 15:41 | XMS_ITS | Encounter Summary ---
Author Organization [facility] Address [facility] [place] [address] Care Team Providers Care Neurosurgeon Name Role Phone Deborah Quiroga APRN Primary Care Provider Encounter Details Date Type Department Care Team (Late st Contact Info) Description 07/17/2016 9:00 AM EST Office Visit Hematology [place] [address] Markel Borjas MD [facility] [address] HEMATOLOGY [place] [address] Neutropenia, unspecified type Social History Tobacco Use [...] 07/17/2016 9:00 AM EST Hematology Outpatient Clinic [facility] Hematology Outpatient Consult Note CC: 60 [...] TOUCH PREP, CLOT SECTION, CORE ??BIOPSY); [OSR# [id number], COLLECTED 06/23/2016, 19 SLIDES]: ?1. 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 Labs will be drawn at [facility] next week Imaging As above - [...] leukopenia. Will consi kanwal talking to pt's maintenance porter about a switch from ACEI to ARB [...] the original note were not included. [facility] [place] [place] [phone] Date: 07/17/16 Patient Name: Purnima Thacker : 1955 Diagnosis: neutropenia Referral to [site]: [facility] Orders: ? Labs: Fax results to . [x] Draw CBC, copper level, CMV PCR, mononucleosis screen on 07/20 Repeat CBC on 07/30 (to measure response of WBC after Neulasta) ? Growth factor: [x] Neulasta 6mg SQ injection x 1 on 07/20/2016 Signature: Markel Borjas MD beeper # [id number] documented in this encounter Plan of Treatment Upcoming Encounters Date Type Department Care Team (Late st Contact Info) Description 05/29/2024 2:00 PM EDT Hospital Encounter [place] [phone] Markel Borjas MD [facility] [address] HEMATOLOGY [place] [address] 05/29/2024 2:00 PM EDT - 05/29/2024 2:43 PM EDT Surgery [place] [address] Markel Borjas MD [facility] [address] HEMATOLOGY [place] [address] (OSC MSURG) BONE MARROW BIOPSY AND ASPIRATION; DIAGNOSTIC (WRVU 1.44) 06/23/2024 2:00 PM EST Office Visit Hematology [place] [address] Markel Borjas MD [facility] HEMATOLOGY [place] [address] 03/01/2025 4:15 PM EDT Office Visit Dermatology at [place] [address] [place] [phone] Marek Bonilla MD [address], [place] [address] Scheduled Procedures Name Priority Associated Diagnoses Date/Ti me (OSC MSURG) BONE MARROW BIOPSY AND ASPIRATION; DIAGNOSTIC (WRVU 1.44) Anemia, in pt with longstanding neutropenia 05/29/2024 2:00 PM EDT documented as of this encounter Results * (ABNORMAL) CBC (with Diff) (07/31/2016 9:40 AM EST) [facility] White Blood Cell 2.23(EXTER NAL/ABN) 4.4 - 10.8 EXTERNAL LAB Hemoglobin 12.6 12.0 - 16.0 EXTERNAL LAB Hematocrit 37.7 36.0 - 46.0 EXTERNAL LAB Platelet 167 130 - 400 EXTERNAL LAB Neutrophil Absolute (ANC) - Automated 1.17(EXTER NAL/ABN) 1.2 - 6.7 EXTERNAL LAB Blood specimen (specimen) 07/31/2016 9:40 AM EST Markel Borjas MD HEMATOLOGY ORDERAB LES EXTERNAL LAB * Mononucleosis Screen (07/20/2016 10:30 AM EST) [facility] Mononucleosis Screen neg neg - neg EXTERNAL LAB Blood specimen (specimen) 07/20/2016 10:30 AM EST Markel Borjas MD IMMUNOLOGY ORDERAB LES Performing Organization Address [facility] Co de Phone Number EXTERNAL LAB * Copper, serum (07/20/2016 10:30 AM EST) Pathologist [facility] Copper (NOVEMBER) 1.09 0.75 - 1.45 EXTERNAL LAB Blood specimen (specimen) 07/20/2016 10:30 AM EST Markel Borjas MD LAB SEND OUT ORDER JODIE Performing Organization Address [facility] Co de Phone Number EXTERNAL LAB * CMV PCR, Quantitative (07/20/2016 10:30 AM EST) Pathologist [facility] CMV PCR,Quantitati ve undetected EXTERNAL LAB Blood specimen (specimen) 07/20/2016 10:30 AM EST Markel Borjas MD MOLECULAR ORDERABL ES Performing Organization Address [facility] Co de Phone Number EXTERNAL LAB * (ABNORMAL) CBC (with Diff) (07/20/2016 10:30 AM EST) Pathologist [facility] White Blood Cell 1.61(A) 4.4 - 10.8 EXTERNAL LAB Hemoglobin 12.3 12.0 - 16.0 EXTERNAL LAB Hematocrit 37.2 36.0 - 46.0 EXTERNAL LAB Platelet 229 130 - 400 EXTERNAL LAB Blood specimen (specimen) 07/20/2016 10:30 AM EST Mrakel Borjas MD HEMATOLOGY ORDERAB LES Performing Organization Address [facility] Co de Phone Number EXTERNAL LAB documented in this encounter Visit Diagnoses Diagnosis Neutropenia, unspecified type documented in this encounter Care Teams Neurosurgeon Relationship Specialty Start Date End Date Deborah Quiroga APRN PCP - General Family Medicine 03/24/16 02/04/23 documented as of this encounter
--- OUTSIDE RECORDS SUMMARY | 2024-05-16 15:41 | XMS_ITS | Encounter Summary ---
Author Organization [place] [address] Care Team Providers Care Cotton Buyer Name Role Phone Junaid Deborah Cornelius ANURAG Primary Care Provider [phone] Encounter Details Date Type Department Care Team (Late st Contact Info) Description 07/13/2016 External [place] [phone] Provider, Scanning Social History Tobacco Use Types [...] PM EDT Hospital Encounter [place]patient [place] [phone] Markel Borjas MD [facility] [address] [place] [address] 05/29/2024 2:00 PM EDT - 05/29/2024 2:43 PM EDT Surgery [place] [phone] Markel Borjas MD [facility] [address] [place] [address] (OSC MSURG) BONE MARROW BIOPSY AND ASPIRATION; DIAGNOSTIC (WRVU 1.44) 06/23/2024 2:00 PM EST Office Visit [place]ology [place] [address] Markel Borjas MD [facility] [address] [place] [address] 03/01/2025 4:15 PM EDT Office Visit Dermatology at [place] [address] [place] [address] Marek Bonilla MD [address], [place] [address] Scheduled Procedures Name Priority Associated Diagnoses Date/Ti [...] on filedocumented in this encounter Care Teams Cotton Buyer Relationship Specialty Start Date End Date Deborah Quiroga APRN PCP - General Family Medicine 03/24/16 02/04/23 documented as of this encounter
--- OUTSIDE RECORDS SUMMARY | 2024-05-16 15:41 | XMS_ITS | Encounter Summary ---
Author Organization [facility] Address [facility] [place] [address] Care Team Providers Care Recycling Collections Driver Name Role Phone Deborah Quiroga APRN Primary Care Provider [phone] Encounter Details Date Type Department Care Team (Latest Contact Info) Description 05/19/2016 11:52 AM EDT - 05/19/2016 11:59 PM EDT Hospital Encounter XRay at [address] [place] [address] Alirio Esparza MD Nonrheumatic aortic valve stenosis [...] PM EDT Hospital Encounter [place]patient [place] [phone] Markel Borjas MD [facility] DR HEMATOLOGY [place] [address] 05/29/2024 2:00 PM EDT - 05/29/2024 2:43 PM EDT Surgery [place] [address] Markel Borjas MD [facility] [address] HEMATOLOGY [place] [address] (OSC MSURG) BONE MARROW BIOPSY AND ASPIRATION; DIAGNOSTIC (WRVU 1.44) 06/23/2024 2:00 PM EST Office Visit Hematology [place] [address] Markel Borjas MD [facility] DR HEMATOLOGY [place] [address] 03/01/2025 4:15 PM EDT Office Visit Dermatology at [place] [address] [place] [phone] Marek Bonilla MD [address] [place] [address] Scheduled Procedures Name Priority Associated Diagnoses Date/Ti [...] disorders documented in this encounter Care Teams Recycling Collections Driver Relationship Specialty Start Date End Date Deborah Quiroga APRN PCP - General Family Medicine 03/24/16 02/04/23 documented as of this encounter
--- OUTSIDE RECORDS SUMMARY | 2024-05-16 15:41 | XMS_ITS | Encounter Summary ---
[place] [address] Care Team Providers Care Senior Rd Engineer Name Role Phone Deborah Quiroga ANURAG Primary Care Provider [phone] Reason for Visit * Reason Onset Date Comments Medical Care Coordination 07/17/2016 Encounter Details Date Type Department Care Team ([facility] Contact Info) Description 07/17/2016 Telephone Hematology [place] [phone] Alexandrea Greenwood RN Medical Care Coordination Social [...] 07/17/2016 12:07 PM EST Message received from school attendance secretary: Injection/Infusion Referral Call placed to [phone]). Spoke w/ Pasquale. Services to be provided for pt are: Labs @ 10am ([facility]) & Neulasta @ 11am on 07/20/16, CBC only on 07/30/16 Pasquale confirmed they would provide services to pt and I left [facility] for pt to call for appt info. Pt demographics, office note, med list and orders faxed to [facility] & [facility] documented in this encounter Plan of Treatment Upcoming Encounters Date Type Department Care Team (Late st Contact Info) Description 05/29/2024 2:00 PM EDT Hospital Encounter Outpatient [place] [phone] Markel Borjas MD [facility] [address] [place] [address] 05/29/2024 2:00 PM EDT - 05/29/2024 2:43 PM EDT Surgery [place]patient [place] [phone] Markel Borjas MD [facility] [place] [address] (OSC MSURG) BONE MARROW BIOPSY AND ASPIRATION; DIAGNOSTIC (WRVU 1.44) 06/23/2024 2:00 PM EST Office Visit Hematology [place] [phone] Markel Borjas MD [facility] [address] [place] [address] 03/01/2025 4:15 PM EDT Office Visit Dermatology at [place] [address] [place] [address] Marek Bonilla MD [address], TODD A DERMATOLOGY [place], [place] [address] Scheduled Procedures Name Priority Associated Diagnoses Date/Ti me (OSC MSURG) BONE MARROW BIOPSY AND ASPIRATION; DIAGNOSTIC (WRVU 1.44) Anemia, in pt with longstanding neutropenia 05/29/2024 2:00 PM EDT documented as of this encounter Visit Diagnoses Not on filedocumented in this encounter Care Teams Senior Rd Engineer Relationship Specialty Start Date End Date Deborah Quiroga APRN PCP - General Family Medicine 03/24/16 02/04/23 documented as of this encounter
--- OUTSIDE RECORDS SUMMARY | 2024-05-16 15:41 | XMS_ITS | Encounter Summary ---
Author Organization [facility] [place] [address] Care Team Providers Care Civil Design Technician Name Role Phone Deborah Quiroga ANURAG Primary Care Provider [phone] Encounter Details Date Type Department Care Team (Late st Contact Info) Description 08/04/2016 External Results Hematology [place] [phone] Alexandrea Greenwood RN Neutropenia, unspecified type Social [...] PM EDT Hospital Encounter [place] [phone] Markel Borjas MD [facility] DR HEMATOLOGY [place] [address] 05/29/2024 2:00 PM EDT - 05/29/2024 2:43 PM EDT Surgery [place] [phone] Markel Borjas MD [facility] DR HEMATOLOGY [place] [address] (OSC MSURG) BONE MARROW BIOPSY AND ASPIRATION; DIAGNOSTIC (WRVU 1.44) 06/23/2024 2:00 PM EST Office Visit Hematology [place] [address] Markel Borjas MD [facility] HEMATOLOGY [place] [address] 03/01/2025 4:15 PM EDT Office Visit Dermatology at [place] [address] [place] [phone] Marek Bonilla MD [address], [place] [address] Scheduled Procedures Name Priority Associated Diagnoses Date/Ti [...] type documented in this encounter Care Teams Civil Design Technician Relationship Specialty Start Date End Date Deborah Quiroga, ANURAG PCP - General Family Medicine 03/24/16 02/04/23 documented as of this encounter
--- OUTSIDE RECORDS SUMMARY | 2024-05-16 15:41 | XMS_ITS | Encounter Summary ---
Author Organization [place] [place] [address] Care Team Providers Care Education Courses Sales Representative Name Role Phone Ashley Quirogazac Shields APRN Primary Care Provider [phone] Reason for Visit * Consultation (Urgent) - Closed Specialty Diagnoses / Procedures Referred By Contac t Referred To Contact Cardiac Surgery Diagnoses aortic stenosis, consideration for valve replacement Antelmo Burrell MD [address] [place] [address] [place] [address] Alirio Esparza MD [facility] DR [place] [address] Referral ID Status Reason Start Date Expiration Date V isits Requested Visits Authorized [id number] Closed Connection Center 03/04/2016 03/04/2017 1 1 Encounter Details Date Type Department Care Team (Late st Contact Info) Description 03/24/2016 10:40 AM EDT Office [place] [phone] Alirio Esparza MD Aortic valve stenosis, unspecified [...] This is a patient of Antelmo Burrell [facility]. Mrs. Thacker is being sent for [...] 30 minute visit, 20 minutes were spent [id number] with the patient discussing aortic stenosis and valve replacement. documented in this encounter Plan of Treatment Upcoming Encounters Date Type Department Care Team (Late st Contact Info) Description 05/29/2024 2:00 PM EDT Hospital Encounter [place]patient [place] [address] Markel Borjas MD [facility] DR [place] [address] 05/29/2024 2:00 PM EDT - 05/29/2024 2:43 PM EDT Surgery [place]patient [place] [address] Markel Borjas MD [facility] DR [place] [address] (OSC MSURG) BONE MARROW BIOPSY AND ASPIRATION; DIAGNOSTIC (WRVU 1.44) 06/23/2024 2:00 PM EST Office Visit Hematology [place] [address] Markel Borjas MD [facility] DR [place] [address] 03/01/2025 4:15 PM EDT Office Visit Dermatology at [place] [address] [place] [address] Marek Bonilla MD [address], [place] [address] Scheduled Procedures Name Priority Associated Diagnoses Date/Ti me (OSC MSURG) BONE MARROW BIOPSY AND ASPIRATION; DIAGNOSTIC (WRVU 1.44) Anemia, in pt with longstanding neutropenia 05/29/2024 2:00 PM EDT documented as of this encounter Visit Diagnoses Diagnosis Aortic valve stenosis, unspecified etiology documented in this encounter Care Teams Education Courses Sales Representative Relationship Specialty Start Date End Date Deborah Quiroga APRN PCP - General Family Medicine 03/24/16 02/04/23 documented as of this encounter
--- OUTSIDE RECORDS SUMMARY | 2024-05-16 15:41 | XMS_ITS | Encounter Summary ---
Author Organization [facility] [place] [address] Care Team Providers Care Tool Trouble Shooter Name Role Phone Deborah Quiroga ANURAG Primary Care Provider [phone] Encounter Details Date Type Department Care Team (Late st Contact Info) Description 06/09/2016 Orders Only Hematology [place] [phone] Nitesh Pina Jr., MD [facility] DR HEMATOLOGY [place] [address] Cyclical neutropenia Social History Tobacco Use Types [...] PM EDT Hospital Encounter Outpatient [place] [address] Markel Borjas MD [facility] DR HEMATOLOGY [place] [address] 05/29/2024 2:00 PM EDT - 05/29/2024 2:43 PM EDT Surgery Outpatient [place] [address] Markel Borjas MD [facility] DR HEMATOLOGY [place] [address] (OSC MSURG) BONE MARROW BIOPSY AND ASPIRATION; DIAGNOSTIC (WRVU 1.44) 06/23/2024 2:00 PM EST Office Visit Hematology [place] [address] Markel Borjas MD [facility] HEMATOLOGY [place] [address] 03/01/2025 4:15 PM EDT Office Visit Dermatology at [place] [address] [place] [phone] Marek Bonilla MD [address], [place] [address] Scheduled Procedures Name Priority Associated Diagnoses Date/Ti me (OSC MSURG) BONE MARROW BIOPSY AND ASPIRATION; DIAGNOSTIC (WRVU 1.44) Anemia, in pt with longstanding neutropenia 05/29/2024 2:00 PM EDT documented as of this encounter Results * Immunophenotyping Flow Cytometry (06/09/2016 4:53 PM EST) Immunophenotyping Flow See Comment [facility] Comment: When completed by the Pathologist, the Flow Cytometry Report ([id number]) will display under the Pathology Results section within eDH. Specimen of unknown material (specimen) 06/09/2016 4:53 PM EST 06/09/2016 5:00 PM EST Narrative Resulting Agency Comment Spec In Lab Nitesh Pina Jr., MD HEMATOLOGY ORDERABLE S [facility] [place] [address] documented in this encounter Visit Diagnoses Diagnosis Cyclical neutropenia Cyclic neutropenia documented in this encounter Care Teams Tool Trouble Shooter Relationship Specialty Start Date End Date Deboarh Quiroga, INDUSTRIAL REHABILITATION CONSULTANT PCP - General Family Medicine 03/24/16 02/04/23 documented as of this encounter
--- OUTSIDE RECORDS SUMMARY | 2024-05-16 15:41 | XMS_ITS | Encounter Summary ---
Author Organization [facility] [place] [address] Care Team Providers Care Gambreler Name Role Phone Junaid, Deborah Shields APRN Primary Care Provider [phone] Encounter Details Date Type Department Care Team (Late st Contact Info) Description 05/19/2016 10:00 AM EDT Office Visit [place] [phone] Alirio Esparza MD Nonrheumatic aortic valve stenosis [...] EDT Hospital Encounter Outpatient [place] [address] Markel Borjas MD [facility] DR HEMATOLOGY [place] [address] 05/29/2024 2:00 PM EDT - 05/29/2024 2:43 PM EDT Surgery Outpatient [place] [phone] Markel Borjas MD [facility] DR HEMATOLOGY [place] [address] (OSC MSURG) BONE MARROW BIOPSY AND ASPIRATION; DIAGNOSTIC (WRVU 1.44) 06/23/2024 2:00 PM EST Office Visit Hematology [place] [phone] Markel Borjas MD [facility] HEMATOLOGY [place] [address] 03/01/2025 4:15 PM EDT Office Visit Dermatology at [place] [address] [place] [address] Marek Bonilla MD [address], [place] [address] Scheduled Procedures Name Priority Associated Diagnoses Date/Ti [...] (Bezet) 448 ms MUSE SYSTEM Calculated P [place]rapevine 37 degrees MUSE SYSTEM Calculated R [place] 31 degrees MUSE SYSTEM Calculated T Grapevine 25 degrees MUSE SYSTEM INTERPRETATION Normal sinus rhythm Normal ECG No previous ECGs available Confirmed by MD Becca, Deangelo ([id number]) on 05/19/2016 5:23:33 PM MUSE SYSTEM 05/19/2016 11:4 3 AM EDT 05/19/2016 5:23 PM EDT Alirio Esparza MD ECG ORDERABLES MUSE SYSTEM * Basic Metabolic Panel (non-fasting) (05/19/2016 11:32 AM EDT) Glucose 86 65 - 199 mg/dL [facility] Comment:Diabetes: >=200 mg/d L plus symptoms Blood Urea Nitrogen 13 8 - 18 mg/dL [facility] Creatinine 0.95 0.70 - 1.20 mg/dL [facility] Comment: Please note that the pediatric reference intervals supplied above were not validated at [facility]. Results from pediatric patients should be interpreted in conjunction to the patient's age, height and muscle mass. Sodium 140 135 - 145 mmol/L [facility] Potassium 4.3 3.5 - 5.0 mmol/L [facility] Comment: Please note: ??Patients with WBC >100,000 may have falsely elevated Potassium levels. ??For accurate Potassium quantification in these patients send serum separator tube (gold top) for subsequent determinations. ??Contact the Clinical Chemistry Laboratory if there are any questions. Chloride 101 98 - 107 mmol/L [facility] Carbon Dioxide 27 22 - 31 mmol/L [facility] Anion Gap 12 5 - 15 mmol/L [facility] Calcium 10.1 8.5 - 10.5 mg/dL [facility] Est Glomerular Filtration Rate 60 [...] the following links into your internet browser. [email or web address] Blood specimen (specimen) 05/19/2016 11:32 AM EDT 05/19/2016 11:41 AM EDT Narrative Resulting Agency Comment Spec In Lab Alirio Esparza MD CHEMISTRY ORDERABLE S [facility] [place] [address] documented in this encounter Visit Diagnoses Diagnosis Nonrheumatic aortic valve stenosis Aortic valve disorders Nonrheumatic aortic valve stenosis Aortic valve disorders documented in this encounter Care Teams Gambreler Relationship Specialty Start Date End Date Deborah Quiroga APRN PCP - General Family Medicine 03/24/16 02/04/23 documented as of this encounter
--- OUTSIDE RECORDS SUMMARY | 2024-05-16 15:41 | XMS_ITS | Encounter Summary ---
[place] [address] Care Team Providers Care Dust Mixer Name Role Phone Deborah Quiroga APRN Primary Care Provider [phone] Reason for Visit * Reason Onset Date Comments Prior Authorization 09/11/2016 Neulasta Encounter Details Date Type Department Care Team (Late st Contact Info) Description 09/11/2016 Telephone Hematology [place] [phone] Monica Wick Prior Authorization (Neulasta ) Social [...] EST Prior Auth for Neulasta (Approved) [facility] is a covered facility under the members plan. ID# [id number] Call placed to [phone] Rationale: Can you please start a PA for this pt to receive as outpatient at [facility] on 09/16/16? 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 ??Her last ANC was 0.56 (or 560) on 08/04/16. ??This will need to be approved through her medical as out patient. J code for neulasta. ?? [id number]. Spoke w/ Anna Marie Call Reference [id number] Copay: $ Deductible is not met, patient will have out of pocket costs until deductible is met. documented in this encounter Plan of Treatment Upcoming Encounters Date Type Department Care Team (Late st Contact Info) Description 05/29/2024 2:00 PM EDT Hospital Encounter Outpatient [place] [phone] Markel Borjas MD [facility] DR HEMATOLOGY [place] [address] 05/29/2024 2:00 PM EDT - 05/29/2024 2:43 PM EDT Surgery Outpatient [place] [phone] Markel Borjas MD [facility] DR HEMATOLOGY [place] [address] (OSC MSURG) BONE MARROW BIOPSY AND ASPIRATION; DIAGNOSTIC (WRVU 1.44) 06/23/2024 2:00 PM EST Office Visit Hematology [place] [phone] Markel Borjas MD [facility] DR HEMATOLOGY [place] [address] 03/01/2025 4:15 PM EDT Office Visit Dermatology at [place] [address] [place] [address] Marek Bonilla MD [address], [address] [place]MATOLOGY [place], [place] [phone] Scheduled Procedures Name Priority Associated Diagnoses Date/Ti me (OSC MSURG) BONE MARROW BIOPSY AND ASPIRATION; DIAGNOSTIC (WRVU 1.44) Anemia, in pt with longstanding neutropenia 05/29/2024 2:00 PM EDT documented as of this encounter Visit Diagnoses Not on filedocumented in this encounter Care Teams Dust Mixer Relationship Specialty Start Date End Date Deborah Quiroga, RN TRANSPORT PCP - General Family Medicine 03/24/16 02/04/23 documented as of this encounter
--- OUTSIDE RECORDS SUMMARY | 2024-05-16 15:41 | XMS_ITS | Encounter Summary ---
Author Organization [facility] Address [facility] [place] [address] Care Team Providers Care Quality Control Associate Name Role Phone Junaid, Deborah Shields APRN Primary Care Provider [phone] Reason for Visit * Auth/Cert Specialty Diagnoses / Procedures Referred By Crispin t Referred To Contact Diagnoses AVS Procedures CARDIAC CATHETERIZATION Referral ID Status Reason Start Date Expiration Date Visits Re quested Visits Authorized [id number] 1 1 Encounter Details Date Type Department Care Team (Late st Contact Info) Description 06/03/2016 7:30 AM EDT - 06/03/2016 8:30 AM EDT [place] [phone] Mario Alberto Escobedo MD [facility] [place] [address] CARDIAC CATHETERIZATION Social History Tobacco Use Types [...] by your doctor, do not take any [id number] medicinesor herbal preparations without first discussing this with your doctor or pharmacist. There is the possibility of side effects and interactions when these are combined. Follow Up Care Who to call with questions or problems If there are any questions or problems that you think might be related to your cardiac cath or angioplasty, contact the supervisor wood room tile mason by calling [facility] at . * Patient Instructions* Felicia Corrigan - 06/03/2016 9:33 AM EDT Cardiology Instructions Call your doctor if: Chest pain, dyspnea, pain or swelling in legs occurs. If you have non-emergent questions between now and the time of your follow up appointments: -During 8am-5pm Wednesday through Wednesday call [phone] to speak with a nurse in the cardiology clinic -All other times call [phone] and ask to speak to the operator specialist communications tile mason. MEDICATIONS - restart your spironolactone, discontinue prior [...] Appointments: Primary care provider: Cardiology: Deborah Hahn, DESTINATION IMAGINATION COORDINATOR [phone] Follow up as planned or as needed. Dr. Esparza [phone] Other follow-up appointment: Hematology - Dr. Mario [...] PM EDT Hospital Encounter [place] [phone] Markel Borjas MD [facility] [address] [place] [address] 05/29/2024 2:00 PM EDT - 05/29/2024 2:43 PM EDT Surgery [place] [phone] Markel Borjas MD [facility] [address] [place] [address] (OSC MSURG) BONE MARROW BIOPSY AND ASPIRATION; DIAGNOSTIC (WRVU 1.44) 06/23/2024 2:00 PM EST Office Visit Hematology [place] [phone] Markel Borjas MD [facility] [address] [place] [address] 03/01/2025 4:15 PM EDT Office Visit Dermatology at [place] [address] [place] [address] Marek Bonilla MD [address], [place] [address] Scheduled Procedures Name Priority Associated Diagnoses Date/Ti [...] MD CHEMISTRY ORDERABLES [facility] [place] [place] [address] * Methylmalonic acid, serum (06/03/2016 11:45 AM EDT) [facility] Methylmalonic Acid (NOVEMBER) 0.21 <=0.40 nmol/mL [facility] Comment: Test Performed by: [facility] [place] [address] Medical Biller: Raymond Chaudhry II, M.D., Ph.D. Blood specimen (specimen) 06/03/2016 11:45 AM EDT 06/03/2016 1:57 PM EDT Narrative Resulting Agency Comment Spec In Lab Mario Alberto Escobedo MD LAB SEND OUT ORDERAB LES Performing Organization Address [facility] de Phone Number [facility] [place] [address] * Granulocyte Antibody (06/03/2016 11:45 AM EDT) [facility] Granulocyte Ab (NOVEMBER) Negative Not Applicable [facility] Comment: ADDITIONAL INFORMATION Method: Immunofluorescent Assay Performing Laboratory CLIA# [id number] This test was developed and its performance characteristics determined by [facility] in a manner consistent with CLIA requirements. This test has not been cleared or approved by the U.S. Food and Drug Administration. Test Performed by: [facility] [place] [address] Medical Biller: Raymond Chaudhry II, M.D., Ph.D. Blood specimen (specimen) 06/03/2016 11:45 AM EDT 06/03/2016 1:57 PM EDT Narrative Resulting Agency Comment Spec In Lab Mario Alberto Escobedo MD LAB SEND OUT ORDERAB LES Performing Organization Address [facility] Co de Phone Number [facility] [place] [address] * TSH (06/03/2016 11:45 AM EDT) Thyroid Stimulating Hormone 2.18 0.27 - 4.20 mcIU/mL [facility] Blood specimen (specimen) 06/03/2016 11:45 AM EDT 06/03/2016 12:11 PM EDT Narrative Resulting Agency Comment Spec In Lab Mario Alberto Escobedo MD CHEMISTRY ORDERABLES [facility] [place] [address] * Homocysteine Total, Plasma (06/03/2016 11:45 AM EDT) Homocystine 9 <=15 mcmol/L [facility] Blood specimen (specimen) 06/03/2016 11:45 AM EDT 06/03/2016 12:11 PM EDT Narrative Resulting Agency Comment Spec In Lab Mario Alberto Escobedo MD CHEMISTRY ORDERABLES [facility] [place] [address] * Folate, serum (06/03/2016 11:45 AM EDT) Folate >20.0 4.8 - 24.2 ng/mL [facility] Blood specimen (specimen) 06/03/2016 11:45 AM EDT 06/03/2016 12:04 PM EDT Narrative Resulting Agency Comment Spec In Lab Mario Alberto Escobedo MD CHEMISTRY ORDERABLES [facility] [place] [address] * (ABNORMAL) Sedimentation rate (06/03/2016 11:45 AM EDT) Sedimentation Rate Automated 41(H) 0 - 20 mm/hr [facility] Blood specimen (specimen) 06/03/2016 11:45 AM EDT 06/03/2016 12:04 PM EDT Narrative Resulting Agency Comment Spec In Lab Mario Alberto Escobedo MD HEMATOLOGY ORDERABLE S Performing Organization Address City/[facility]/ZIP Co de Phone Number [facility] [place] [address] * Lactate Dehydrogenase (06/03/2016 11:45 AM EDT) Lactate Dehydrogenase 164 110 - 220 unit/L [facility] Blood specimen (specimen) 06/03/2016 11:45 AM EDT 06/03/2016 12:11 PM EDT Narrative Resulting Agency Comment Spec In Lab Mario Alberto Escobedo MD CHEMISTRY ORDERABLES Performing Organization Address [facility] de Phone Number [facility] [place] [address] * Comprehensive metabolic panel (non-fasting) (06/03/2016 11:45 [...] the following links into your internet browser. [email or web address] Blood specimen (specimen) 06/03/2016 11:45 AM EDT 06/03/2016 12:11 PM EDT Narrative Resulting Agency Comment Spec In Lab Mario Alberto Escobedo MD CHEMISTRY ORDERABLES [facility] [place] [place] [address] documented in this encounter Visit Diagnoses Diagnosis [...] Hernandez) documented in this encounter Care Teams Quality Control Associate Relationship Specialty Start Date End Date Deborah Quiroga, DESTINATION IMAGINATION COORDINATOR PCP - General Family Medicine 03/24/16 02/04/23 documented as of this encounter
--- OUTSIDE RECORDS SUMMARY | 2024-05-16 15:41 | XMS_ITS | Encounter Summary ---
Author Organization [facility] Address [facility] [place] [address] Care Team Providers Care Warble Saw Operator Name Role Phone Deborah Quiroga ANURAG Primary Care Provider [phone] Encounter Details Date Type Department Care Team (Late st Contact Info) Description 07/31/2016 Orders Only Hematology [place] [phone] Alexandrea Greenwood RN Neutropenia, unspecified type Social [...] PM EDT Hospital Encounter Outpatient [place] [phone] Markel Borjas MD [facility] [address] [place] [address] 05/29/2024 2:00 PM EDT - 05/29/2024 2:43 PM EDT Surgery Outpatient [place] [phone] Markel Borjas MD [facility] [address] [place] [address] (OSC MSURG) BONE MARROW BIOPSY AND ASPIRATION; DIAGNOSTIC (WRVU 1.44) 06/23/2024 2:00 PM EST Office Visit Hematology [place] [address] Markel Borjas MD [facility] [place] [address] 03/01/2025 4:15 PM EDT Office Visit Dermatology at [place] [address] [place] [phone] Marek Bonilla MD [address], [place] [address] Scheduled Procedures Name Priority Associated Diagnoses Date/Ti [...] type documented in this encounter Care Teams Warble Saw Operator Relationship Specialty Start Date End Date Deborah Quiroga APRN PCP - General Family Medicine 03/24/16 02/04/23 documented as of this encounter
--- OUTSIDE RECORDS SUMMARY | 2024-05-16 15:41 | XMS_ITS | Encounter Summary ---
Author Organization [facility] [place] [address] Care Team Providers Care Civil Drafting Technician Name Role Phone Deborah Quiroga APRN Primary Care Provider Encounter Details Date Type Department Care Team (Latest Contact Info) Description 07/10/2016 2:54 PM EST - 07/10/2016 11:59 PM EST Hospital [place] [phone] Discharge Disposition: Home Social History Tobacco Use [...] PM EDT Hospital Encounter Outpatient [place] [phone] Markel Borjas MD [facility] DR HEMATOLOGY [place] [address] 05/29/2024 2:00 PM EDT - 05/29/2024 2:43 PM EDT Surgery Outpatient [place] [phone] Markel Borjas MD [facility] DR HEMATOLOGY [place] [address] (OSC MSURG) BONE MARROW BIOPSY AND ASPIRATION; DIAGNOSTIC (WRVU 1.44) 06/23/2024 2:00 PM EST Office Visit [place] [phone] Markel Borjas MD [facility] DR HEMATOLOGY [place] [address] 03/01/2025 4:15 PM EDT Office Visit Dermatology at [place] [address] [place] [address] Marek Bonilla MD [address] [place] [address] Scheduled Procedures Name Priority Associated Diagnoses Date/Ti [...] Report (07/10/2016 3:43 PM EST) Final Diagnosis [id number] ?Location: OPW The signing pathologist has (i) examined the relevant preparation(s) for the specimen(s) and (ii) rendered or confirmed the diagnosis(es). . ? Bone Marrow Final DIAGNOSIS BONE MARROW (PERIPHERAL SMEAR, ASPIRATE SMEAR, TOUCH PREP, CLOT SECTION, CORE BIOPSY); [OSR# [id number], COLLECTED 06/23/2016, 19 SLIDES]: ?? 1. ??Normocellular [...] clonal lymphoproliferative or myeloproliferative ? disorder (OSR# [id number]) ?Chromosome analysis on the marrow aspirate revealed a normal female karyotype; ?46,XX[25] ??(OSR# [id number]) Electronically signed by: ??Mindy CULP, Elian Mustafa Verified: ??07/13/2016 ?Hematopathologist DISCUSSION We concur with [...] plasma cells represent 3-4% of the cellularity [place] ? Polytypic plasma cell staining, high background Lambda ?Polytypic plasma cell staining, high background Block: ? B2 (Core biopsy 2) Fixative: ?? Formalin ANTIBODY: ?? RESULT/COMMENT CD3 ? Scattered small lymphocytes and lymphoid aggregates highlighted CD20 ?Few scattered small lymphocytes stain ( ?? <CD3 in aggregates) CD138 ? Scattered plasma cells represent 3-4% of the cellularity [place] ? Polytypic plasma cell staining, high background Lambda ?Polytypic plasma cell staining, high background Note: The immunoperoxidase stains reported above were developed and their performance characteristics determined by [facility] Clinical Laboratories. ??They [...] CONSULTATION CASE A - 19 slides labeled [id number], collection date 06/23/2016. [id number] Report to: [facility] Surgical Pathology Department [facility], [facility], 2nd Floor [address] [place], [place] ??[address] 07/13/2016 11:38 AM EST [facility] Consult Case 07/10/2016 3:43 PM EST 07/10/2016 3:43 PM EST Nitesh Pina Jr., MD PATHOLOGY/CYTOLOGY O RDERABLES Performing Organization Address City/State/[facility] Co de Phone Number [facility] [place] [phone] documented in this encounter Visit Diagnoses Not on filedocumented in this encounter Care Teams Civil Drafting Technician Relationship Specialty Start Date End Date Deborah Quiroga APRN PCP - General Family Medicine 03/24/16 02/04/23 documented as of this encounter
--- OUTSIDE RECORDS SUMMARY | 2024-05-16 15:41 | XMS_ITS | Encounter Summary ---
Author Organization [facility] Address [facility] [place] [address] Care Team Providers Care Packing Machine Can Feeder Name Role Phone Deborah Quiroga ANURAG Primary Care Provider [phone] Encounter Details Date Type Department Care Team (Late st Contact Info) Description 06/16/2016 Orders Only Hematology [place] [phone] Nitesh Pina Jr., MD [facility] DR [place] [address] Cyclical neutropenia Social History Tobacco Use Types [...] PM EDT Hospital Encounter Outpatient [place] [address] Markel Borjas MD [facility] DR [place] [address] 05/29/2024 2:00 PM EDT - 05/29/2024 2:43 PM EDT Surgery [place]patient [place] [address] Markel Borjas MD [facility] DR [place] [address] (OSC MSURG) BONE MARROW BIOPSY AND ASPIRATION; DIAGNOSTIC (WRVU 1.44) 06/23/2024 2:00 PM EST Office Visit Hematology [place] [address] Markel Borjas MD [facility] DR [place] [address] 03/01/2025 4:15 PM EDT Office Visit Dermatology at [place] [address] [place] [phone] Marek Bonilla MD [address] [place] [address] Scheduled Procedures Name Priority Associated Diagnoses Date/Ti me (OSC MSURG) BONE MARROW BIOPSY AND ASPIRATION; DIAGNOSTIC (WRVU 1.44) Anemia, in pt with longstanding neutropenia 05/29/2024 2:00 PM EDT documented as of this encounter Visit Diagnoses Diagnosis Cyclical neutropenia Cyclic neutropenia documented in this encounter Care Teams Packing Machine Can Feeder Relationship Specialty Start Date End Date Deborah Quiroga APRN PCP - General Family Medicine 03/24/16 02/04/23 documented as of this encounter
--- OUTSIDE RECORDS SUMMARY | 2024-05-16 15:41 | XMS_ITS | Encounter Summary ---
Author Organization [facility] Address [facility] [place] [address] Care Team Providers Care Ratchet Setter Name Role Phone JunaidAshley hargrovezac Shields APRN Primary Care Provider [phone] Reason for Visit * Auth/Cert Specialty Diagnoses / Procedures Referred By Crispin t Referred To Contact Diagnoses AVS Procedures CARDIAC CATHETERIZATION Referral ID Status Reason Start Date Expiration Date Visits Re quested Visits Authorized [id number] 1 1 Encounter Details Date Type Department Care Team (Late st Contact Info) Description 06/03/2016 6:32 AM EDT - 06/03/2016 1:10 PM EDT Hospital Encounter [place] [phone] Anjum Oliveros II, MD [facility] [address] Mario Alberto Escobedo MD [facility] [place] [address] Aortic valve stenosis, unspecified etiology; Nonrheumatic aortic [...] by your doctor, do not take any ebfs-txn-[id number] medicinesor herbal preparations without first discussing this with your doctor or pharmacist. There is the possibility of side effects and interactions when these are combined. Follow Up Care Who to call with questions or problems If there are any questions or problems that you think might be related to your cardiac cath or angioplasty, contact the street light cleaner instrumentation and control technician by calling [facility] at . * Patient Instructions* Felicia Corrigan - 06/03/2016 9:33 AM EDT Cardiology Instructions Call your doctor if: Chest pain, dyspnea, pain or swelling in legs occurs. If you have non-emergent questions between now and the time of your follow up appointments: -During 8am-5pm Wednesday through Wednesday call [phone] to speak with a nurse in the cardiology clinic -All other times call [phone] and ask to speak to the warehouse shipping supervisor instrumentation and control technician. MEDICATIONS - restart your spironolactone, discontinue [...] Appointments: Primary care provider: Cardiology: Deborah Hahn, NUTRITION SERVICES ASSOCIATE [phone] Follow up as planned or as needed. Dr. Esparza [phone] Other follow-up appointment: Hematology - Dr. Mario [...] PM EDT Hospital Encounter [place] [address] Markel Borjas MD [facility] [place] [address] 05/29/2024 2:00 PM EDT - 05/29/2024 2:43 PM EDT Surgery [place] [phone] Markel Borjas MD [facility] [place] [address] (OSC MSURG) BONE MARROW BIOPSY AND ASPIRATION; DIAGNOSTIC (WRVU 1.44) 06/23/2024 2:00 PM EST Office Visit Hematology [place] [address] Markel Borjas MD [facility] DR [place] [address] 03/01/2025 4:15 PM EDT Office Visit Dermatology at [place] [address] [place] [phone] Marek Bonilla MD [address] [place] [address] Scheduled Procedures Name Priority Associated Diagnoses Date/Ti [...] 11:45 AM EDT) [facility] Blood specimen (specimen) Venous Draw / Unknown 06/03/2016 11:45 AM EDT 06/03/2016 12:12 PM EDT Mario Alberto Escobedo MD CHEMISTRY ORDERABLES Performing Organization Address [facility] Co de Phone Number [facility] [place] [address] * Methylmalonic acid, serum (06/03/2016 11:45 AM EDT) [facility] Methylmalonic Acid (NOVEMBER) 0.21 <=0.40 nmol/mL [facility] Comment: Test Performed by: [place] [address] Shredding Machine Operator: Raymond Chaudhry II, M.D., Ph.D. Blood specimen (specimen) 06/03/2016 11:45 AM EDT 06/03/2016 1:57 PM EDT Narrative Resulting Agency Comment Spec In Lab Mario Alberto Escobedo MD LAB SEND OUT ORDERAB LES Performing Organization Address City/[facility]/ZIP Co de Phone Number [facility] [place] [address] * Granulocyte Antibody (06/03/2016 11:45 AM EDT) [facility] Granulocyte Ab (NOVEMBER) Negative Not Applicable [facility] Comment: ADDITIONAL INFORMATION Method: Immunofluorescent Assay Performing Laboratory CLIA# [id number] This test was developed and its performance characteristics determined by [facility] in a manner consistent with CLIA requirements. This test has not been cleared or approved by the U.S. Food and Drug Administration. Test Performed by: [address] [address] Shredding Machine Operator: Raymond Chaudhry II, M.D., Ph.D. Blood specimen (specimen) 06/03/2016 11:45 AM EDT 06/03/2016 1:57 PM EDT Narrative Resulting Agency Comment Spec In Lab Mario Alberto Escobedo MD LAB SEND OUT ORDERAB LES Performing Organization Address [facility]/ZIP Co de Phone Number [facility] [place] [address] * TSH (06/03/2016 11:45 AM EDT) Thyroid Stimulating Hormone 2.18 0.27 - 4.20 mcIU/mL [facility] Blood specimen (specimen) 06/03/2016 11:45 AM EDT 06/03/2016 12:11 PM EDT Narrative Resulting Agency Comment Spec In Lab Mario Alberto Escobedo MD CHEMISTRY ORDERABLES Performing Organization Address [facility] Co de Phone Number [facility] [place] [address] * Homocysteine Total, Plasma (06/03/2016 11:45 AM EDT) Homocystine 9 <=15 mcmol/L [facility] Blood specimen (specimen) 06/03/2016 11:45 AM EDT 06/03/2016 12:11 PM EDT Narrative Resulting Agency Comment Spec In Lab Mario Alberto Escobedo MD CHEMISTRY ORDERABLES Performing Organization Address [facility] Co de Phone Number [facility] [place] [address] * Folate, serum (06/03/2016 11:45 AM EDT) Folate >20.0 4.8 - 24.2 ng/mL [facility] Blood specimen (specimen) 06/03/2016 11:45 AM EDT 06/03/2016 12:04 PM EDT Narrative Resulting Agency Comment Spec In Lab Mario Alberto Escobedo MD CHEMISTRY ORDERABLES Performing Organization Address City/[facility]/ZIP Co de Phone Number [facility] [place] [address] * (ABNORMAL) Sedimentation rate (06/03/2016 11:45 AM EDT) Pathologist [facility] Sedimentation Rate Automated 41(H) 0 - 20 mm/hr [facility] Blood specimen (specimen) 06/03/2016 11:45 AM EDT 06/03/2016 12:04 PM EDT Narrative Resulting Agency Comment Spec In Lab Mario Alberto Escobedo MD HEMATOLOGY ORDERABLE S Performing Organization Address City/[facility]/ZIP Co de Phone Number [facility] [place] [address] * Lactate Dehydrogenase (06/03/2016 11:45 AM EDT) [facility] Lactate Dehydrogenase 164 110 - 220 unit/L [facility] Blood specimen (specimen) 06/03/2016 11:45 AM EDT 06/03/2016 12:11 PM EDT Narrative Resulting Agency Comment Spec In Lab Mario Alberto Escobedo MD CHEMISTRY ORDERABLES Performing Organization Address [facility]/ZIP Co de Phone Number [facility] [place] [address] * Comprehensive metabolic panel (non-fasting) (06/03/2016 11:45 AM EDT) [facility] Glucose 90 65 - 199 mg/dL [facility] Comment:Diabetes: >=200 mg/d L plus symptoms Blood Urea Nitrogen 11 8 - 18 mg/dL [facility] [...] mmol/L [facility] Carbon Dioxide 25 22 - 31 mmol/L [facility] Anion Gap 14 5 - 15 mmol/L [facility] Calcium 9.2 8.5 - 10.5 mg/dL [facility] Protein, Total 7.0 6.1 - 8.0 gm/dL [facility] Albumin 4.0 3.2 - 5.2 gm/dL [facility] Aspartate Aminotransferase 17 0 - 30 unit/L [facility] Alanine Aminotransferase 9 0 - 30 unit/L [facility] Alkaline Phosphatase 81 40 - 104 unit/L [facility] Bilirubin, Total 0.4 0.2 - 1.3 mg/dL [facility] Bilirubin, Direct 0.1 0.0 - 0.3 mg/dL [facility] Est Glomerular [...] the following links into your internet browser. [email or web address] Blood specimen (specimen) 06/03/2016 11:45 AM EDT 06/03/2016 12:11 PM EDT Narrative Resulting Agency Comment Spec In Lab Mario Alberto Escobedo MD CHEMISTRY ORDERABLES [facility] [place] [address] documented in this encounter Visit Diagnoses Diagnosis [...] Routine 08 (Given - Provid er: Alirio Heranndez) iohexol (OMNIPAQUE) 350 mg/mL solution (CANCELED) ONCE [...] Hernandez) documented in this encounter Care Teams Ratchet Setter Relationship Specialty Start Date End Date Deborah Quiroga, NUTRITION SERVICES ASSOCIATE PCP - General Family Medicine 03/24/16 02/04/23 documented as of this encounter
--- OUTSIDE RECORDS SUMMARY | 2024-05-16 15:41 | XMS_ITS | Encounter Summary ---
Author Organization [facility] Address [facility] [place] [address] Care Team Providers Care Security Vehicle Patrol Officer Name Role Phone Ashley Quirogan Cornelius ANURAG Primary Care Provider [phone] Encounter Details Date Type Department Care Team (Late st Contact Info) Description 08/11/2016 Telephone Hematology [place] [phone] Markel Borjas MD [facility] DR HEMATOLOGY [place] [address] Social History Tobacco Use Types Packs/Day Years [...] EDT Hospital Encounter Outpatient [place] [phone] Markel Borjas MD [facility] DR HEMATOLOGY [place] [address] 05/29/2024 2:00 PM EDT - 05/29/2024 2:43 PM EDT Surgery Outpatient [place] [phone] Markel Borjas MD [facility] DR HEMATOLOGY [place] [address] (OSC MSURG) BONE MARROW BIOPSY AND ASPIRATION; DIAGNOSTIC (WRVU 1.44) 06/23/2024 2:00 PM EST Office Visit Hematology [place] [phone] Markel Borjas MD [facility] DR HEMATOLOGY [place] [address] 03/01/2025 4:15 PM EDT Office Visit Dermatology at [place] [address] [place] [phone] Marek Bonilla MD [address], [address] DERMATOLOGY [place], [place] [phone] Scheduled Procedures Name Priority Associated Diagnoses Date/Ti me (OSC MSURG) BONE MARROW BIOPSY AND ASPIRATION; DIAGNOSTIC (WRVU 1.44) Anemia, in pt with longstanding neutropenia 05/29/2024 2:00 PM EDT documented as of this encounter Visit Diagnoses Not on filedocumented in this encounter Care Teams Security Vehicle Patrol Officer Relationship Specialty Start Date End Date Deborah Quiroga, COMMERCIAL SOLAR SALES CONSULTANT PCP - General Family Medicine 03/24/16 02/04/23 documented as of this encounter
--- OUTSIDE RECORDS SUMMARY | 2024-05-16 15:41 | XMS_ITS | Encounter Summary ---
Author Organization [facility] [place] [address] Care Team Providers Care World Geography Teacher Name Role Phone Deborah Quiroga APRN Primary Care Provider [phone] Encounter Details Date Type Department Care Team (Late st Contact Info) Description 08/18/2016 4:20 PM EST Clinical [place] [phone] Social History Tobacco Use Types Packs/Day Years [...] PM EDT Hospital Encounter Outpatient [place] [phone] Markel Borjas MD [facility] DR HEMATOLOGY [place] [address] 05/29/2024 2:00 PM EDT - 05/29/2024 2:43 PM EDT Surgery Outpatient [place] [phone] Markel Borjas MD [facility] DR HEMATOLOGY [place] [address] (OSC MSURG) BONE MARROW BIOPSY AND ASPIRATION; DIAGNOSTIC (WRVU 1.44) 06/23/2024 2:00 PM EST Office Visit Hematology [place] [phone] Markel Borjas MD [facility] DR HEMATOLOGY [place] [address] 03/01/2025 4:15 PM EDT Office Visit Dermatology at [place] [address] [place] [address] Marek Bonilla MD [address], [place] [address] Scheduled Procedures Name Priority Associated Diagnoses Date/Ti [...]
--- OUTSIDE RECORDS SUMMARY | 2024-05-16 15:41 | XMS_ITS | Encounter Summary ---
[place] [address] Care Team Providers Care Cylinder Sander Operator Name Role Phone Ashley Quirogazac Shields APRN Primary Care Provider [phone] Encounter Details Date Type Department Care Team (Late st Contact Info) Description 07/03/2016 External Results Hematology [place] [phone] Matthew Cervantes, DO [address] [place] [address] Social History Tobacco Use Types Packs/Day Years [...] PM EDT Hospital Encounter Outpatient [place] [phone] Markel Borjas MD [facility] [place] [address] 05/29/2024 2:00 PM EDT - 05/29/2024 2:43 PM EDT Surgery Outpatient [place] [address] Markel Borjas MD [facility] [address] [place] [address] (OSC MSURG) BONE MARROW BIOPSY AND ASPIRATION; DIAGNOSTIC (WRVU 1.44) 06/23/2024 2:00 PM EST Office Visit Hematology [place] [address] Markel Borjas MD [facility] [place] [address] 03/01/2025 4:15 PM EDT Office Visit Dermatology at [place] [address] [place] [phone] Marek Bonilla MD [address], [place] [address] Scheduled Procedures Name Priority Associated Diagnoses Date/Ti [...] filedocumented in this encounter Care Teams Cylinder Sander Operator Relationship Specialty Start Date End Date Deborah Quiroga APRN PCP - General Family Medicine 03/24/16 02/04/23 documented as of this encounter
--- OUTSIDE RECORDS SUMMARY | 2024-05-16 15:41 | XMS_ITS | Encounter Summary ---
Author Organization [facility] [place] [address] Care Team Providers Care Lining Finisher Name Role Phone Deborah Quiroga ANURAG Primary Care Provider [phone] Reason for Visit * Reason Onset Date Comments Pre Procedure Call 06/18/2016 Encounter Details Date Type Department Care Team (Late st Contact Info) Description 06/18/2016 Telephone Hematology [place] [address] Alexandrea Greenwood RN Pre Procedure [...] PM EDT Hospital Encounter [place]patient [place] [phone] Markel Borjas MD [facility] [address] [place] [address] 05/29/2024 2:00 PM EDT - 05/29/2024 2:43 PM EDT Surgery [place]patient [place] [phone] Markel Borjas MD [facility] [address] [place] [address] (OSC MSURG) BONE MARROW BIOPSY AND ASPIRATION; DIAGNOSTIC (WRVU 1.44) 06/23/2024 2:00 PM EST Office Visit Hematology [place] [address] Markel Borjas MD [facility] [place] [address] 03/01/2025 4:15 PM EDT Office Visit Dermatology at [place] [address] [facility] [phone] Marek Bonilla MD [address] [place] [address] Scheduled Procedures Name Priority Associated Diagnoses Date/Ti me (OSC MSURG) BONE MARROW BIOPSY AND ASPIRATION; DIAGNOSTIC (WRVU 1.44) Anemia, in pt with longstanding neutropenia 05/29/2024 2:00 PM EDT documented as of this encounter Visit Diagnoses Not on filedocumented in this encounter Care Teams Lining Finisher Relationship Specialty Start Date End Date Deborah Quiroga APRN PCP - General Family Medicine 03/24/16 02/04/23 documented as of this encounter
--- OUTSIDE RECORDS SUMMARY | 2024-05-16 15:41 | XMS_ITS | Encounter Summary ---
[place] [address] Care Team Providers Care Meat Molder Name Role Phone Ashley Quirogan Cornelius ANURAG Primary Care Provider [phone] Encounter Details Date Type Department Care Team (Late st Contact Info) Description 03/24/2016 Notes Only [place] [phone] Alfa Lua Social History Tobacco Use Types [...] assessments completed: Wadsworth Score: 6/6 IADL: 7/7 Development System Efficiency Manager Strength Trials: 18.4, 15.0, 16.8 (right hand dominant) 5 meter walk test in seconds x3: 4.98, 4.88, 4.45 KCCQol: 98% Alfa Lua documented in this encounter Plan of Treatment Upcoming Encounters Date Type Department Care Team (Late st Contact Info) Description 05/29/2024 2:00 PM EDT Hospital Encounter [place] [address] Markel Borjas MD [facility] [place] [address] 05/29/2024 2:00 PM EDT - 05/29/2024 2:43 PM EDT Surgery [place] [phone] Markel Borjas MD [facility] [address] [place] [address] (OSC MSURG) BONE MARROW BIOPSY AND ASPIRATION; DIAGNOSTIC (WRVU 1.44) 06/23/2024 2:00 PM EST Office Visit Hematology [place] [phone] Markel Borjas MD [facility] [place] [address] 03/01/2025 4:15 PM EDT Office Visit Dermatology at [address] [phone] Marek Bonilla MD [address], [place] A DERMATOLOGY [place], [place] [address] Scheduled Procedures Name Priority Associated Diagnoses Date/Ti me (OSC MSURG) BONE MARROW BIOPSY AND ASPIRATION; DIAGNOSTIC (WRVU 1.44) Anemia, in pt with longstanding neutropenia 05/29/2024 2:00 PM EDT documented as of this encounter Visit Diagnoses Not on filedocumented in this encounter Care Teams Meat Molder Relationship Specialty Start Date End Date Deborah Quiroga APRN PCP - General Family Medicine 03/24/16 02/04/23 documented as of this encounter
--- OUTSIDE RECORDS SUMMARY | 2024-05-16 15:41 | XMS_ITS | Encounter Summary ---
Author Organization [facility] [place] [place] [address] Care Team Providers Care Loader Operator Name Role Phone Deborah Quiroga ANURAG Primary Care Provider [phone] Encounter Details Date Type Department Care Team (Late st Contact Info) Description 05/22/2016 Orders Only Cardiology at [address] [phone] Chele Randolph PA [facility] [place] [address] Aortic valve stenosis, unspecified etiology Social History [...] PM EDT Hospital Encounter Outpatient [place] [phone] Markel Borjas MD [facility] [place] [address] 05/29/2024 2:00 PM EDT - 05/29/2024 2:43 PM EDT Surgery Outpatient [place] [address] Markel Borjas MD [facility] DR [place] [address] (OSC MSURG) BONE MARROW BIOPSY AND ASPIRATION; DIAGNOSTIC (WRVU 1.44) 06/23/2024 2:00 PM EST Office Visit Hematology [place] [address] Markel Borjas MD [facility] DR [place] [address] 03/01/2025 4:15 PM EDT Office Visit Dermatology at [place] [address] [place] [address] Marek Bonilla MD [address] [place] [address] Scheduled Procedures Name Priority Associated Diagnoses Date/Ti [...] Modality Other Narrative 06/03/2016 10:13 AM EDT ?[facility] ? Cardiac Catheterization/Intervention Report ? Patient Name: Kirstie, Purnima M. ? Procedure Date: 06/03/2016 ? A #: [id number] ? Primary Physician: Nitesh Escobedo ? Case #: [id number] ? File Name: [id number] ? Catheterization Order Number: [id number] ? [facility] ? Final Report [place], [place] ? Patient Name: ? Purnima M. Kirstie ? ID#: ?[id number] ? : ?1955 ? Procedure Date: ? June 03, 2016 ? Case #: ? [id number] ? Room: ? 1 ? Case Physician: ? Nitesh Escobedo M.D. ? Start: ?08:22 ?Fellow: ? Felicia Corrigan M.D. ? Admission: ??06/03/2016 ?Linda Cary M.D. ? Discharge: ??06/03/2016 ? Referring Physician: ??Katyh Padron ? Procedures: ?* Coronary Angiography ?* [...] no symptom, no angina (w/i 14 days). [place] ?Cardiovascular Society angina class was 0. This [...] Procedure Note Nitesh Escobedo MD - 09/21/2016 [facility] Cardiac Catheterization/Intervention Report Patient Name: Purnima Thacker Procedure Date: 06/03/2016 A #: [id number] Primary Physician: Nitesh Escobedo Case #: [id number] File Name: [id number] Catheterization Order Number: [id number] [facility] FinalReport [place], [place] Patient Name: Purnima Thacker ID#:[id number] :1955 Procedure Date: June 03, 2016 Case [...] with: no symptom, no angina (w/i 14 days).[place] [employer] Society angina class was 0. This [...] oximetry. Nitesh Escobedo M.D. Electronically Signed by: Nitseh Escobedo M.D. Report Finalized: 06/03/2016 10:04 Report Last Ammended: 09/21/2016 09:37 Nitesh Escobedo MD CARDIAC CATH ORDERAB LES documented in this encounter Visit Diagnoses Diagnosis Aortic valve stenosis, unspecified etiology Aortic valve stenosis, unspecified etiology documented in this encounter Care Teams Loader Operator Relationship Specialty Start Date End Date Deborah Quiroga, ANURAG PCP - General Family Medicine 03/24/16 02/04/23 documented as of this encounter
--- OUTSIDE RECORDS SUMMARY | 2024-05-16 15:41 | XMS_ITS | Encounter Summary ---
Author Organization [facility] Address [facility] [place] [address] Care Team Providers Care Machine Grainer Name Role Phone Ashley Quirogan Cornelius ANURAG Primary Care Provider [phone] Encounter Details Date Type Department Care Team (Latest Contact Info) Description 08/18/2016 4:40 PM EST [place] [phone] Aortic valve stenosis, unspecified etiology Social History [...] PM EDT Hospital Encounter [place] [address] Markel Borjas MD [facility] DR HEMATOLOGY AND [place] [address] 05/29/2024 2:00 PM EDT - 05/29/2024 2:43 PM EDT Surgery [place] [address] Markel Borjas MD [facility] DR HEMATOLOGY AND ONCOLOGY [place], [place] [phone] (OSC MSURG) BONE MARROW BIOPSY AND ASPIRATION; DIAGNOSTIC (WRVU 1.44) 06/23/2024 2:00 PM EST Office Visit [place] [address] Markel Borjas MD [facility] [address] HEMATOLOGY AND [place] [address] 03/01/2025 4:15 PM EDT Office Visit Dermatology at [place] [address] [place] [address] Marek Bonilla MD [address], [place] [address] Scheduled Procedures Name Priority Associated Diagnoses Date/Ti [...] 4:50 PM EST) ABORH Type Recheck Completed [facility] Blood specimen (specimen) 08/18/2016 4:50 PM EST 08/18/2016 5:27 PM EST Narrative Resulting Agency Comment Spec In Lab Alirio Esparza MD [facility] BETH ALEJO Performing Organization Address [facility] Co de Phone Number [facility] [place] [address] * Antibody screen (08/18/2016 4:50 PM EST) Ab Screen Interp Negative [facility] Expires at [id number] on: 09/24/2016 [facility] Comment: Corrected from 09/17/16 12:00 [Unknown] on 09/09/16 02:32 by Shireen Treviño Blood specimen (specimen) 08/18/2016 4:50 PM EST 08/18/2016 5:11 PM EST Narrative Resulting Agency Comment Spec In Lab Alirio Esparza MD BLOOD BANK LAB BETH ORTEGAROMERO Performing Organization Address [facility] Co de Phone Number [facility] [place] [address] * ABO/Rh Typing (08/18/2016 4:50 PM EST) ABORH Type B Pos [facility] Blood specimen (specimen) 08/18/2016 4:50 PM EST 08/18/2016 5:11 PM EST Narrative Resulting Agency Comment Spec In Lab Alirio Esparza MD BLOOD BANK LAB BETH ALEJO Performing Organization Address [facility]/ZIP Co de Phone Number [facility] [place] [address] * Basic Metabolic Panel (non-fasting) (08/18/2016 4:50 PM EST) [facility] Glucose 82 65 - 199 mg/dL [facility] [...] the following links into your internet browser. [email or web address] [email or web address] Blood specimen (specimen) 08/18/2016 4:50 PM EST 08/18/2016 5:03 PM EST Narrative Resulting Agency Comment Spec In Lab Alirio Esparza MD CHEMISTRY ORDERABLE S [facility] [place] [address] documented in this encounter Visit Diagnoses Diagnosis Aortic valve stenosis, unspecified etiology documented in this encounter Care Teams Machine Grainer Relationship Specialty Start Date End Date Deborah Quiroga APRN PCP - General Family Medicine 03/24/16 02/04/23 documented as of this encounter
--- OUTSIDE RECORDS SUMMARY | 2024-05-16 15:41 | XMS_ITS | Encounter Summary ---
[place] [address] Care Team Providers Care Heavy Truck Mechanic Name Role Phone Deborah Quiroga ANURAG Primary Care Provider [phone] Encounter Details Date Type Department Care Team (Late st Contact Info) Description 09/11/2016 Orders Only [place] [address] Alexandrea Greenwood RN Social History [...] the original note were not included. [facility] HEM ONC [facility] [phone] Date: 09/11/16 Patient Name: Purnima Thacker : 1955 Diagnosis: Neutropenia Referral to [site]: [facility] Orders: ? Growth factor: [x] Neulasta 6mg SQ injection x 1 on 09/16/16 Signature: Markel Borjas MD beeper # [id number] Co-signature [if needed]: documented in this encounter Plan of Treatment Upcoming Encounters Date Type Department Care Team (Late st Contact Info) Description 05/29/2024 2:00 PM EDT Hospital Encounter [place] [phone] Markel Borjas MD [facility] [address] HEMATOLOGY [place] [address] 05/29/2024 2:00 PM EDT - 05/29/2024 2:43 PM EDT Surgery [place] [phone] Markel Borjas MD [facility] DR HEMAT[place] [address] (OSC MSURG) BONE MARROW BIOPSY AND ASPIRATION; DIAGNOSTIC (WRVU 1.44) 06/23/2024 2:00 PM EST Office Visit [place]ematology [place] [address]1000 Markel Borjas MD [facility] DR HEMATOLOGY [place] [address] 03/01/2025 4:15 PM EDT Office Visit Dermatology at [place] [address] [place] [address] Marek Bonilla MD [address], [place] [address] Scheduled Procedures Name Priority Associated Diagnoses Date/Ti [...] M ? (Age): 1955(61y) Med Rec#: ? [id number] ?Sex: ?M ? Site Loc: ? [facility] ?Ht / Wt: ??(cm)/ (kg) ? Pt. Loc: ?OR ? Study Date: ?? 09/21/2016 ?Pt. Type: Tape: ? 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 AVR for severe Rhythm: ? [...] ? Mid-Inferior ?Normal ? Mid-Inferoseptal ?Normal ? [place]-Septal ? Normal ? [place]-Anterior ? Normal ? [place]-Lateral ?Normal ? [place]-Inferior ? Normal ? [place]-Tip ?Normal ? This report has been electronically signed by: Henrik Yarbrough M.D. ? 09/22/2016 08:30:41 Images reviewed and interpretation verified [facility] Cardiac Ultrasound Laboratory Procedure Note Henrik Yarbrough MD - 09/22/2016 Procedure: Transesophageal Echocardiogram Patient: ANDREW Mejias DOB(Age): 1955(61y) [facility] Rec#: [id number] Sex: M Site Loc: [facility] Ht / Wt: (cm)/ (kg) Pt. Loc: OR Study Date: 09/21/2016 Pt. 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 09/22/2016 08:30:41 Images reviewed and interpretation verified [facility] Cardiac Ultrasound Laboratory Unknown ECHO ORDERABLES documented in this encounter Visit Diagnoses Not on filedocumented in this encounter Care Teams Heavy Truck Mechanic Relationship Specialty Start Date End Date Deborah Quiroga APRN PCP - General Family Medicine 03/24/16 02/04/23 documented as of this encounter
--- OUTSIDE RECORDS SUMMARY | 2024-05-16 15:41 | XMS_ITS | Encounter Summary ---
Author Organization [facility] [place] [address] Care Team Providers Care Computer Aide Name Role Phone Deborah Quiroga ANURAG Primary Care Provider [phone] Encounter Details Date Type Department Care Team (Late st Contact Info) Description 07/22/2016 External Results Hematology [place] [address] Alexandrea Greenwood RN Neutropenia, unspecified type Social [...] PM EDT Hospital Encounter [place] [phone] Markel Borjas MD [facility] [address] [place] [address] 05/29/2024 2:00 PM EDT - 05/29/2024 2:43 PM EDT Surgery [place] [phone] Markel Borjas MD [facility] [place] [address] (OSC MSURG) BONE MARROW BIOPSY AND ASPIRATION; DIAGNOSTIC (WRVU 1.44) 06/23/2024 2:00 PM EST Office Visit Hematology [place] [address] Markel Borjas MD [facility] [place] [address] 03/01/2025 4:15 PM EDT Office Visit Dermatology at [place] [address] [place] [phone] Marek Bonilla MD [address], [address] [place] [address] Scheduled Procedures Name Priority Associated Diagnoses Date/Ti [...] (APD/JEANNINE/[facility]) Routine 07/20/2016 10:30 AM EST Neutropenia, unspecified type CBC (WITH DIFF) Routine 07/20/2016 10:30 AM EST Neutropenia, unspecified type documented in this encounter Results * Copper, serum (07/20/2016 10:30 AM EST) Copper (NOVEMBER) 1.09 0.75 - 1.45 EXTERNAL LAB Blood specimen (specimen) 07/20/2016 10:30 AM EST Markel Borjas MD LAB SEND OUT ORDER JODIE Performing Organization Address [facility] de Phone Number EXTERNAL LAB * CMV PCR, Quantitative (07/20/2016 10:30 AM EST) CMV PCR,Quantitati ve undetected EXTERNAL LAB Blood specimen (specimen) 07/20/2016 10:30 AM EST Markel Borjas MD MOLECULAR ORDERABL ES Performing Organization Address [facility] de Phone Number EXTERNAL LAB * Mononucleosis Screen (07/20/2016 10:30 AM EST) Mononucleosis Screen neg neg - neg EXTERNAL LAB Blood specimen (specimen) 07/20/2016 10:30 AM EST Markel Borjas MD IMMUNOLOGY ORDERAB LES Performing Organization Address [facility] de Phone Number EXTERNAL LAB * (ABNORMAL) CBC (with Diff) (07/20/2016 10:30 AM EST) White Blood Cell 1.61(A) 4.4 - 10.8 EXTERNAL LAB Hemoglobin 12.3 12.0 - 16.0 EXTERNAL LAB Hematocrit 37.2 36.0 - 46.0 EXTERNAL LAB Platelet 229 130 - 400 EXTERNAL LAB Blood specimen (specimen) 07/20/2016 10:30 AM EST Markel Borjas MD HEMATOLOGY ORDERAB LES Performing Organization Address [facility] de Phone Number EXTERNAL LAB documented in this encounter Visit Diagnoses Diagnosis Neutropenia, unspecified type documented in this encounter Care Teams Computer Aide Relationship Specialty Start Date End Date Deborah Quiroga APRN PCP - General Family Medicine 03/24/16 02/04/23 documented as of this encounter
--- OUTSIDE RECORDS SUMMARY | 2024-05-16 15:42 | XMS_ITS | Encounter Summary ---
[place] [address] Care Team Providers Care Tax Audit Manager Name Role Phone Jerel Sofia Garcia APRN Primary Care Provider [phone] Encounter Details Date Type Department Care Team (Latest Contact Info) Description 11/12/2014 8:10 AM EDT - 11/12/2014 11:59 PM EDT Hospital [place] [phone] CLINIC, DR ABE Burrell, Antelmo Porter MD [facility] [place] [address] Discharge Disposition: Home Social History Tobacco Use [...] PM EDT Hospital Encounter Outpatient [place] [phone] Markel Borjas MD [facility] DR HEMATOLOGY [place] [address] 05/29/2024 2:00 PM EDT - 05/29/2024 2:43 PM EDT Surgery Outpatient [place] [address] Markel Borjas MD [facility] DR HEMATOLOGY [place] [address] (OSC MSURG) BONE MARROW BIOPSY AND ASPIRATION; DIAGNOSTIC (WRVU 1.44) 06/23/2024 2:00 PM EST Office Visit Hematology [place] [address] Markel Borjas MD [facility] DR HEMATOLOGY [place] [address] 03/01/2025 4:15 PM EDT Office Visit Dermatology at [place] [address] [place] [address] Marek Bonilla MD [address], [address] DERMATOLOGY [place], [place] [address] Scheduled Procedures Name Priority Associated Diagnoses Date/Ti [...] mLs documented in this encounter Care Teams Tax Audit Manager Relationship Specialty Start Date End Date Sofia Beltrán APRN [address] [place] [address] PCP - General 11/12/14 03/23/16 documented as of this encounter
--- OUTSIDE RECORDS SUMMARY | 2024-05-16 15:42 | XMS_ITS | Encounter Summary ---
Author Organization [facility] [place] [address] Care Team Providers Care Document Control Assistant Name Role Phone Mitchell Wilkes MD Primary Care Provider [phone] Encounter Details Date Type Department Care Team (Late st Contact Info) Description 01/19/2014 Orders Only Cardiology at [address] [address] Chele Randolph PA [facility] [place] [address] Cardiomyopathy (Primary Dx) Social History [...] PM EDT Hospital Encounter [place]patient [place] [address] Markel Borjas MD [facility] [address] HEMATOLOGY [place] [address] 05/29/2024 2:00 PM EDT - 05/29/2024 2:43 PM EDT Surgery [place] [address] Markel Borjas MD [facility] [address] HEMATOLOGY [place] [address] (OSC MSURG) BONE MARROW BIOPSY AND ASPIRATION; DIAGNOSTIC (WRVU 1.44) 06/23/2024 2:00 PM EST Office Visit Hematology [place] [address] Markel Borjas MD [facility] [address] HEMATOLOGY [place] [address] 03/01/2025 4:15 PM EDT Office Visit Dermatology at [place] [address] [place] [address] Marek Bonilla MD [address], [place] [address] Scheduled Procedures Name Priority Associated Diagnoses Date/Ti [...] cardiomyopathies documented in this encounter Care Teams Document Control Assistant Relationship Specialty Start Date End Date Mitchell Wilkes MD [facility] PCP - General 06/24/10 01/19/14 documented as of this encounter
--- OUTSIDE RECORDS SUMMARY | 2024-05-16 15:42 | XMS_ITS | Encounter Summary ---
Author Organization [facility] [place] [address] Care Team Providers Care Anesthesiology Physician Assistant Name Role Phone EitanDanni ANURAG Primary Care Provider [phone] Encounter Details Date Type Department Care Team (Late st Contact Info) Description 01/22/2014 Telephone Cardiology at [address] [phone] Cynthia Arrington LPN Social History Tobacco Use [...] LPN - 01/23/2014 2:39 PM EDT This card writer hand did not receive a call back from [...] PM EDT Hospital Encounter [place]patient [place] [address] Markel Borjas MD [facility] DR HEMATOLOGY [place] [address] 05/29/2024 2:00 PM EDT - 05/29/2024 2:43 PM EDT Surgery [place]patient [place] [address] Markel Borjas MD [facility] HEMATOLOGY [place] [address] (OSC MSURG) BONE MARROW BIOPSY AND ASPIRATION; DIAGNOSTIC (WRVU 1.44) 06/23/2024 2:00 PM EST Office Visit [place]ematology [place] [address] Markel Borjas MD [facility] HEMATOLOGY [place] [address] 03/01/2025 4:15 PM EDT Office Visit Dermatology at [address] [place] [address] Marek Bonilla MD [address], TODD A DERMATOLOGY [place], [place] [address] Scheduled Procedures Name Priority Associated Diagnoses Date/Ti me (OSC MSURG) BONE MARROW BIOPSY AND ASPIRATION; DIAGNOSTIC (WRVU 1.44) Anemia, in pt with longstanding neutropenia 05/29/2024 2:00 PM EDT documented as of this encounter Visit Diagnoses Not on filedocumented in this encounter Care Teams Anesthesiology Physician Assistant Relationship Specialty Start Date End Date Danni Laird APRN [address] [place], [place] [address] [address] PCP - General 01/23/14 11/11/14 documented as of this encounter
--- OUTSIDE RECORDS SUMMARY | 2024-05-16 15:42 | XMS_ITS | Encounter Summary ---
[place] [address] Care Team Providers Care It Field Technician Name Role Phone Mitchell Wilkes MD Primary Care Provider [phone] Reason for Visit * Reason Onset Date Comments Other 01/18/2014 Encounter Details Date Type Department Care Team (Late st Contact Info) Description 01/18/2014 Telephone Cardiology at [address] [phone] Jesusita Garces Other Social History Tobacco Use [...] PM EDT Hospital Encounter Outpatient [place] [address] Markel Borjas MD [facility] DR [place] [address] 05/29/2024 2:00 PM EDT - 05/29/2024 2:43 PM EDT Surgery Outpatient [place] [address] Markel Borjas MD [facility] DR [place] [address] (OSC MSURG) BONE MARROW BIOPSY AND ASPIRATION; DIAGNOSTIC (WRVU 1.44) 06/23/2024 2:00 PM EST Office Visit [place] [address] Markel Borjas MD [facility] DR [place] [address] 03/01/2025 4:15 PM EDT Office Visit Dermatology at [place] [address] [place] [address] Marek Bonilla MD [address], [place] [address] Scheduled Procedures Name Priority Associated Diagnoses Date/Ti me (OSC MSURG) BONE MARROW BIOPSY AND ASPIRATION; DIAGNOSTIC (WRVU 1.44) Anemia, in pt with longstanding neutropenia 05/29/2024 2:00 PM EDT documented as of this encounter Visit Diagnoses Not on filedocumented in this encounter Care Teams It Field Technician Relationship Specialty Start Date End Date Mitchell Wilkes MD [facility] PCP - General 06/24/10 01/19/14 documented as of this encounter
--- OUTSIDE RECORDS SUMMARY | 2024-05-16 15:42 | XMS_ITS | Encounter Summary ---
Author Organization [facility] Address [place] [address] Care Team Providers Care Folder Machine Name Role Phone EitanMagnusDanni ANURAG Primary Care Provider Encounter Details Date Type Department Care Team (Latest Contact Info) Description 01/23/2014 7:45 AM EDT - 01/23/2014 5:50 PM EDT Hospital Encounter [place] [address] Alan Jacobson MD [facility] [place] [place] [address] Cardiomyopathy; SOB (shortness of breath) Discharge Disposition: [...] by your doctor, do not take any [id number] medicines or herbal preparations without first discussing this with your doctor or pharmacist. There is the possibility of side effect and interactions when these are combined. Follow up Care Who to Call with Questions or Problems If there are any questions or problems that you think might be related to your cardiac cath or angioplasty, contact the marketing analytics analyst literacy education professor by calling [facility] at . documented in this [...] EDT Hospital Encounter Outpatient [place] [address] Markel Borjas MD [facility] [address] [place] [address] 05/29/2024 2:00 PM EDT - 05/29/2024 2:43 PM EDT Surgery Outpatient [place] [address] Markel Borjas MD [facility] [address] [place] [address] (OSC MSURG) BONE MARROW BIOPSY AND ASPIRATION; DIAGNOSTIC (WRVU 1.44) 06/23/2024 2:00 PM EST Office Visit [place] [address] Markel Borjas MD [facility] [address] [place] [address] 03/01/2025 4:15 PM EDT Office Visit Dermatology at [place] [address] [place] [address] Marek Bonilla MD [address], [address] DERMATOLOGY [place], [place] [address] Scheduled Procedures Name Priority Associated Diagnoses Date/Ti [...] Transthoracic(Leb) (01/23/2014 3:17 PM EDT) EF 50 HEARTVerivue SYSTEM Anatomical Region Laterality Modality Other 01/23/2014 Narrative 01/23/2014 4:35 PM EDT Procedure: ? Transthoracic Echocardiogram Patient: ? ANDREW ECHOLS M ?(Age): 1955(58) Med Rec#: ?[id number] ? Sex: ?F ? Site Loc: ?[facility] ? Ht / Wt: ??158(cm)/93(kg) Pt. Loc: ? Adult Floor ?BSA: ?2.02 Study Date: ?01/23/2014 ? Pt. Type: Inpatient Tape: ? Referring: Lee Kincaid ([id number]) Referring: ANNALISA Slat Basket Maker Helper Machine: Miguel Beverly Diagnosis:CPT Code(s): ??Echo Full (51959), ??Spectral Doppler (12615), Color Doppler (28493), Indication(s): ??Aortic stenosis Rhythm: Sinus HR ?BP [...] ? Mid-Inferior ?Hypokinetic ? Mid-Inferoseptal ?Hypokinetic ? [place]-Septal ? Hypokinetic ? [place]-Anterior ? Hypokinetic ? [place]-Lateral ?Hypokinetic ? [place]-Inferior ? Hypokinetic ? [place]-Tip ?Hypokinetic ? Chambers ?Value ?Units (Range) ? [...] 01/23/2014 16:34:37 Images reviewed and interpretation verified [facility] Cardiac Ultrasound Laboratory Procedure Note Lee Kincaid MD - 01/23/2014 Procedure: Transthoracic Echocardiogram Patient: ANDREW Mejias (Age): 1955(58) Med Rec#: [id number] Sex: F Site Loc: [facility] Ht / Wt: 158(cm)/93(kg) Pt. Loc: Adult Floor BSA: 2.02 Study Date: 01/23/2014 Pt. Type: Inpatient Tape: Referring: Lee Kincaid ([id number]) Referring: ANNALISA Slat Basket Maker Helper Machine: Miguel Beverly Diagnosis:CPT Code(s): Echo Full (75839), Spectral Doppler (36618), Color Doppler (77302), Indication(s): Aortic stenosis Rhythm: Sinus HR BP [...] Hypokinetic Mid-Posterolateral Hypokinetic Mid-Inferior Hypokinetic Mid-Inferoseptal Hypokinetic [place]-Septal Hypokinetic [place]-Anterior Hypokinetic [place]-Lateral Hypokinetic [place]-Inferior Hypokinetic [place]-Tip Hypokinetic Chambers Value Units (Range) IVSd 2D [...] 01/23/2014 16:34:37 Images reviewed and interpretation verified [facility] Cardiac Ultrasound Laboratory Lee Kincaid [...] RN) documented in this encounter Care Teams Folder Machine Relationship Specialty Start Date End Date Danni Laird APRN [address] [place] [address] PCP - General 01/23/14 11/11/14 documented as of this encounter
--- OUTSIDE RECORDS SUMMARY | 2024-05-16 15:42 | XMS_ITS | Encounter Summary ---
Author Organization [facility] Address [facility] [place] [address] Care Team Providers Care Railway Signal Operator Name Role Phone Danni Laird HIGH MAN Primary Care Provider [phone] Encounter Details Date Type Department Care Team (Late st Contact Info) Description 01/23/2014 Orders Only Cardiology at [address] [phone] Lee Kincaid MD [facility] [place] [address] SOB (shortness of breath) (Primary Dx) Social [...] PM EDT Hospital Encounter Outpatient [place] [phone] Markel Borjas MD [facility] [place] [address] 05/29/2024 2:00 PM EDT - 05/29/2024 2:43 PM EDT Surgery Outpatient [place] [address] Markel Borjas MD [facility] DR [place] [address] (OSC MSURG) BONE MARROW BIOPSY AND ASPIRATION; DIAGNOSTIC (WRVU 1.44) 06/23/2024 2:00 PM EST Office Visit [place] [phone] Markel Borjas MD [facility] DR [place] [address] 03/01/2025 4:15 PM EDT Office Visit Dermatology at [place] [address] [facility] [place] [phone] Marek Bonilal MD [address], [place] [address] Scheduled Procedures Name Priority Associated Diagnoses Date/Ti me (OSC MSURG) BONE MARROW BIOPSY AND ASPIRATION; DIAGNOSTIC (WRVU 1.44) Anemia, in pt with longstanding neutropenia 05/29/2024 2:00 PM EDT documented as of this encounter Results * Echocardiogram Transthoracic(Leb) (01/23/2014 3:17 PM EDT) EF 50 HEARTLAB SYSTEM Anatomical Region Laterality Modality Other 01/23/2014 Narrative 01/23/2014 4:35 PM EDT Procedure: ? Transthoracic Echocardiogram Patient: ? KIRSTIE ONESIMO M ?(Age): 1955(58) Med Rec#: ?[id number] ? Sex: ?F ? Site Loc: ?[facility] ? Ht / Wt: ??158(cm)/93(kg) Pt. Loc: ? Adult Floor ?BSA: ?2.02 Study Date: ?01/23/2014 ? Pt. Type: Inpatient Tape: ? Referring: Lee Kincaid ([id number]) Referring: ANNALISA Manager Unit: Miguel Beverly Diagnosis:CPT Code(s): ??Echo Full (53650), ??Spectral Doppler (37797), Color Doppler (45693), Indication(s): ??Aortic stenosis Rhythm: Sinus HR ?BP [...] ? Mid-Inferior ?Hypokinetic ? Mid-Inferoseptal ?Hypokinetic ? [place]-Septal ? Hypokinetic ? [place]-Anterior ? Hypokinetic ? [place]-Lateral ?Hypokinetic ? [place]-Inferior ? Hypokinetic ? [place]-Tip ?Hypokinetic ? Chambers ?Value ?Units (Range) ? [...] 01/23/2014 16:34:37 Images reviewed and interpretation verified [facility] Cardiac Ultrasound Laboratory Procedure Note Lee Kincaid MD - 01/23/2014 Procedure: Transthoracic Echocardiogram Patient: KIRSTIE Mejias (Age): 1955(58) Med Rec#: [id number] Sex: F Site Loc: [facility] Ht / Wt: 158(cm)/93(kg) Pt. Loc: Adult Floor BSA: 2.02 Study Date: 01/23/2014 Pt. Type: Inpatient Tape: Referring: Lee Kincaid ([id number]) Referring: AUSTINELIZABETHGerman Manager Unit: Miguel Beverly Diagnosis:CPT Code(s): Echo Full (92444), Spectral Doppler (28569), Color Doppler (35911), Indication(s): Aortic stenosis Rhythm: Sinus HR BP [...] Hypokinetic Mid-Posterolateral Hypokinetic Mid-Inferior Hypokinetic Mid-Inferoseptal Hypokinetic [place]-Septal Hypokinetic [place]-Anterior Hypokinetic [place]-Lateral Hypokinetic [place]-Inferior Hypokinetic [place]-Tip Hypokinetic Chambers Value Units (Range) IVSd 2D [...] 01/23/2014 16:34:37 Images reviewed and interpretation verified [facility] Cardiac Ultrasound Laboratory Lee Kincaid MD ECHO ORDERABLES documented in this encounter Visit Diagnoses Diagnosis SOB (shortness of breath)- Primary Shortness of breath documented in this encounter Care Teams Railway Signal Operator Relationship Specialty Start Date End Date Danni Laird APRN [address] [place] [address] PCP - General 01/23/14 11/11/14 documented as of this encounter
--- OUTSIDE RECORDS SUMMARY | 2024-05-16 15:42 | XMS_ITS | Encounter Summary ---
Author Organization [facility] [place] [address] Care Team Providers Care Developer Designer Name Role Phone Eitan Danni ANURAG Primary Care Provider Encounter Details Date Type Department Care Team (Late st Contact Info) Description 01/23/2014 9:25 AM EDT - 01/23/2014 10:25 AM EDT [place] [address] Alan Jacobson MD [facility] [place] [address] CARDIAC CATHETERIZATION Social History Tobacco Use Types [...] by your doctor, do not take any kirm-gvj-nyepcgt medicines or herbal preparations without first discussing this with your doctor or pharmacist. There is the possibility of side effect and interactions when these are combined. Follow up Care Who to Call with Questions or Problems If there are any questions or problems that you think might be related to your cardiac cath or angioplasty, contact the crime laboratory analyst production trainer by calling [facility] at . documented in this encounter Medications [...] PM EDT Hospital Encounter Outpatient [place] [address] Markel Borjas MD [facility] DR [place] [address] 05/29/2024 2:00 PM EDT - 05/29/2024 2:43 PM EDT Surgery Outpatient [place] [phone] Markel Borjas MD [facility] DR [place] [address] (OSC MSURG) BONE MARROW BIOPSY AND ASPIRATION; DIAGNOSTIC (WRVU 1.44) 06/23/2024 2:00 PM EST Office Visit Hematology [place] [phone] Markel Borjas MD [facility] DR [place] [address] 03/01/2025 4:15 PM EDT Office Visit Dermatology at [place] [address] [place] [phone] Marek Bonilla MD [address], [address] DERMATOLOGY [place], [place] [phone] Scheduled Procedures Name Priority Associated Diagnoses Date/Ti [...] ? ANDREW Mejias ?(Age): 1955(58) Med Rec#: ?[id number] ? Sex: ?F ? Site Loc: ?[facility] ? Ht / Wt: ??158(cm)/93(kg) Pt. Loc: ? Adult Floor ?BSA: ?2.02 Study Date: ?01/23/2014 ? Pt. Type: Inpatient Tape: ? Referring: Lee Kincaid ([id number]) Referring: ANNALISA Petroleum Laboratory Technician: Miguel Beverly Diagnosis:CPT Code(s): ??Echo Full (29025), ??Spectral Doppler (75644), Color Doppler (32663), Indication(s): ??Aortic stenosis Rhythm: Sinus HR ?BP [...] ? Mid-Inferior ?Hypokinetic ? Mid-Inferoseptal ?Hypokinetic ? [place]-Septal ? Hypokinetic ? [place]-Anterior ? Hypokinetic ? [place]-Lateral ?Hypokinetic ? [place]-Inferior ? Hypokinetic ? [place]-Tip ?Hypokinetic ? Chambers ?Value ?Units (Range) ? [...] 01/23/2014 16:34:37 Images reviewed and interpretation verified [facility] Cardiac Ultrasound Laboratory Procedure Note Lee Kincaid MD - 01/23/2014 Procedure: Transthoracic Echocardiogram Patient: ANDREW Mejias (Age): 1955(58) Med Rec#: [id number] Sex: F Site Loc: [facility] Ht / Wt: 158(cm)/93(kg) Pt. Loc: Adult Floor BSA: 2.02 Study Date: 01/23/2014 Pt. Type: Inpatient Tape: Referring: Lee Kincaid ([id number]) Referring: ANNALISA Pet[employer] Laboratory Technician: Miguel Beverly Diagnosis:CPT Code(s): Echo Full (89059), Spectral Doppler (98696), Color Doppler (35302), Indication(s): Aortic stenosis Rhythm: Sinus HR BP [...] Hypokinetic Mid-Posterolateral Hypokinetic Mid-Inferior Hypokinetic Mid-Inferoseptal Hypokinetic [place]-Septal Hypokinetic [place]-Anterior Hypokinetic [place]-Lateral Hypokinetic [place]-Inferior Hypokinetic [place]-Tip Hypokinetic Chambers Value Units (Range) IVSd 2D 1.1 cm LVIDd 2D 4.4 cm PWd 2D 1.1 cm LVIDs 2D 3.4 cm LVFS 2D 22 % Ao root 2.8 cm (2.1 to 3.6) Asc Ao 2.8 cm (2 to 3.5) Aortic Valve Value Units (Range) AV grad P 25 mmHg AV grad M 15 mmHg GEVOANNA(wero) 1.1 cm2 (2 to 4) DOI 0.35 [...] 01/23/2014 16:34:37 Images reviewed and interpretation verified [facility] Cardiac Ultrasound Laboratory Lee Kincaid MD ECHO [...] RN) documented in this encounter Care Teams Developer Designer Relationship Specialty Start Date End Date Danni Laird APRN [address] [place], [place] [address] [place] [address] PCP - General 01/23/14 11/11/14 documented as of this encounter
--- OUTSIDE RECORDS SUMMARY | 2024-05-18 14:01 | XMS_ITS | Encounter Summary ---
Author Organization [facility] Address [address] [place] [address] Care Team Providers Care Cable Puller Name Role Phone Ashley Chavez Primary Care Provider [phone] Encounter Details Date Type Department Care Team (Late st Contact Info) Description 06/23/2016 Results Only [facility] [phone] Matthew Acevedo, DO [address] [facility] [place] [address] [place] [address] Social History Tobacco Use Types Packs/Day [...] ? PURNIMA THACKER ? Accession #: ? [id number] : ? 1955 (Age: 60) ??F ?Collect [...] ??400 ?? KARYOTYPE: 46,XX[25] End of Report [facility] 06/23/2016 06/24/2016 Matthew Acevedo DO PATHOLOGY ORDER JODIE [facility] [address] [place] [address] * FLOW CYTOMETRY (06/23/2016 0:00 EST) Pathology Report: FLOW CYTOMETRY REPORT Reports generated via electronic interface contain original data; however they are lacking the format of the original report. Caution should be taken when reading/interpreting unformatted reports. Name: ? PURNIMA THACKER ? Accession #: ? [id number] : ? 1955 (Age: 60) ??F ?Collect Date: ? 06/23/2016 00:00 Location: ? [facility] ? Receive Date: ? 06/24/2016 08:00 Provider: ?MATTHEW ACEVEDO DO Copy to: ?WINTER HANKINS INTERNAL AUDIT CONSULTANT MARIO ALBERTO RAMOS MD ? FINAL IMMUNOPHENOTYPIC INTERPRETATION: ? Bone marrow, flow cytometric analysis: -No immunophenotypic evidence of a clonal cell population. ??See comment. ? COMMENT: The results of flow cytometry show no immunophenotypic evidence of involvement by a clonal lymphoproliferative or myeloproliferative disorder. ??Correlation of these findings with morphologic and clinical data is essential. ??Please refer to pathology report number [id number] for morphologic details. ? Document reviewed and [...] the Department of Pathology and Laboratory Medicine, [place], [place] ??It has not been cleared or [...] clinical laboratory testing. End of Report ?? [facility] 06/23/2016 06/24/2016 8:0 0 EST Matthew Acevedo DO PATHOLOGY ORDER JODIE [facility] [address] [place] [address] * BONE MARROW/HEMPATH CONSULT (06/23/2016 0:00 EST) Pathology Report: BONE MARROW REPORT Reports generated via electronic interface contain original data; however they are lacking the format of the original report. Caution should be taken when reading/interpreting unformatted reports. Name: ? PURNIMA THACKER ? Accession #: ? [id number] : ? 1955 (Age: 60) ??F ?Collect Date: ? 06/23/2016 Location: ? [facility] ? Receive Date: ? 06/24/2016 Provider: ? MATTHEW ACEVEDO DO Copy to: ?WINTER HANKINS INTERNAL AUDIT CONSULTANT MARIO ALBERTO RAMOS MD ? DIAGNOSIS: Peripheral [...] #1: Aggregate biopsy length: 8 mm with turn down worker trabeculae of lamellar bone, cellular bone marrow, [...] SEE ABOVE DISCUSSION Lambda (polyclonal, Dako) ??(B1): [place] (polyclonal, Dako) ??(B1): Biopsy (decalcified) #2: Aggregate biopsy length: 8 mm with turn down worker trabeculae of lamellar bone, cellular bone marrow, [...] (M115, Leica) ??(B2): Lambda (polyclonal, Dako) ??(B2): [place] (polyclonal, Dako) ??(B2): NOTE: ??One or more [...] ? 1% Blasts ?1% Special Studies Cytogenetics ([id number]): Pending. Flow Cytometry ([id number]): No immunophenotypic evidence of a clonal cell population. ? End of Report [facility] 06/23/2016 06/24/2016 Matthew Acevedo DO PATHOLOGY ORDER JDOIE [facility] [address] [place] [address] documented in this encounter Visit Diagnoses Not on filedocumented in this encounter Care Teams Cable Puller Relationship Specialty Start Date End Date Ashley Chavez ARNP [address] [place] [address] PCP - General 07/11/10 documented as of this encounter
--- OUTSIDE RECORDS SUMMARY | 2024-05-18 14:01 | XMS_ITS | Encounter Summary ---
Author Organization [facility] Address [address] [place] [address] Care Team Providers Care Sports Complex Attendant Name Role Phone Unavailable Primary Care Provider Unavailabl e Encounter Details Date Type Department Care Team (Late st Contact Info) Description 07/08/2010 10:55 EST - 07/08/2010 10:56 EST Hospital Encounter [facility] - Other [address] [place] [address] Ashley Chavez, WILLIAM [address] [place] [address] Discharge Disposition: Home or Self Care Social [...]
--- OUTSIDE RECORDS SUMMARY | 2024-05-18 14:01 | XMS_ITS | Referral Summary ---
Author Organization [facility] Address [address] [place] [address] Care Team Providers Care Catering Attendant Name Role Phone Ashley Chavez Primary Care Provider [phone] Encounters Date Type Department Care Team Description 03/22/2024 Lab Requisition [facility] Pathology & Laboratory [address] [address] Consuelo Guerrero, DO Diaphragmatic hernia without obstruction or gangrene; Anemia, unspecified 03/21/2024 Lab Requisition [facility] Pathology & Laboratory [address] [address] Consuelo Guerrero DO Encounter for other general examination 03/21/2024 Lab Requisition [facility] Pathology & Laboratory [address] [address] Outr Resulting Lab, Provider from Last 3 [...] 13:00 EDT) LORY Negative 03/21/2024 22:31 EDT [facility] Blood VENOUS BLOOD / Unknown 03/21/2024 13:00 EDT 03/21/2024 21:51 EDT Consuelo Guerrero DO BLOOD BANK TESTS Performing Organization Address [facility] Co de Phone Number [facility] [address] [place] [address] * HAPTOGLOBIN (03/21/2024 13:00 EDT) Haptoglobin 183 32 - 197 mg/dL 03/22/2024 10:25 EDT [facility] Blood VENOUS BLOOD / Unknown 03/21/2024 13:00 EDT 03/21/2024 21:50 EDT Provider Outr Resulting Lab CHEMISTRY & BLOOD GAS ORDERABLES Performing Organization Address [facility] Co de Phone Number [facility] [address] [place] [address] * SURGICAL PATHOLOGY (03/21/2024 11:35 EDT) Note to Patient The following pathology results have been interpreted by your pathologist and may be available to you before your health provider has had the opportunity to review them. Please allow time for your provider to receive these results and explore management options, if applicable. 03/24/2024 10:36 EDT [facility] Final Diagnosis A. [...] Deeper sections x3 examined. 03/24/2024 10:36 [facility] Attestation There was significant resident/fellow involvement in the diagnostic evaluation of this case. By the signature below, the attending physician certifies that they have personally conducted a gross and/or microscopic examination of the described specimens and rendered or confirmed the above diagnosis. 03/24/2024 10:36 [facility] at 1036 Clinical History Anemia, hiatal hernia, 38 cm aguayo diverticulosis 03/24/2024 10:36 [facility] Gross Description A. Received [...] Luis Torres 03/22/2024 9:36 03/24/2024 10:36 EDT [facility] Resident/Estuardo w: Luis Felipe Bragg DO 03/24/2024 10:36 EDT [facility] Performing Lab [facility] 10:36 EDT [facility] Scanned Images 03/24/2024 10:36 EDT [facility] Tissue POLYP OF [...] 8:19 EDT Consuelo Guerrero DO PATHOLOGY ORDERABLES [facility] [address] [place] [address] from Last 3 Months Care Teams Catering Attendant Relationship Specialty Start Date End Date Ashley Chavez ARNP [address] [place] [address] PCP - General 07/11/10
--- OUTSIDE RECORDS SUMMARY | 2024-05-18 14:01 | XMS_ITS | Encounter Summary ---
Author Organization [facility] Address [address] [place] [address] Care Team Providers Care Public Safety Dispatcher Name Role Phone Scott, Ashley WILLIAM Primary Care Provider [phone] Encounter Details Date Type Department Care Team (Late st Contact Info) Description 12/23/2016 Results Only [facility]- [facility] [phone] Deborah Quiroga, TAG STRINGER [address] [place] [phone] Social History Tobacco Use Types Packs/Day Years [...] ? PURNIMA THACKER ? Accession #: ? [id number] ? : ? 1955 (Age: 61) ??F ?Collect Date: ? 12/23/2016 ? Location: ? [facility] ? Receive Date: ? 12/25/2016 ? Provider: DEBORAH QUIROGA MONORAIL CRANE OPERATOR Copy to: ? Final Report SPECIMEN [...] types 16,18,31,33,35, 39,45,51,52,56,58, 59,66, and 68 by scrap materials buyer mediated amplification. Comments Document reviewed and electronically signed by: ? System Interface ? Report date: 01/07/2017 By the signature above, the attending physician certifies that he/she has personally conducted a gross and/or microscopic examination of the described specimens and rendered or confirmed the above diagnosis. End of Report [facility] 12/23/2016 12/25/2016 Deborah Quiroga TAG STRINGER PATHOLOGY ORDERABLES [facility] [address] [place] [address] documented in this encounter Visit Diagnoses Not on filedocumented in this encounter Care Teams Public Safety Dispatcher Relationship Specialty Start Date End Date Ashley Chavez ARNP [address] [place] [address] PCP - General 07/11/10 documented as of this encounter
--- OUTSIDE RECORDS SUMMARY | 2024-05-18 14:01 | XMS_ITS | Encounter Summary ---
Author Organization [facility] Address [address] [place] [address] Care Team Providers Care Pie Baker Name Role Phone Ashley Chavez Primary Care Provider [phone] Encounter Details Date Type Department Care Team (Late st Contact Info) Description 03/21/2024 Lab Requisition [facility] Pathology & Laboratory Medicine - [address] [address] Outr Resulting Lab, Provider Social History Tobacco [...] 197 mg/dL 03/22/2024 10:25 EDT [facility] Blood VENOUS BLOOD / Unknown 03/21/2024 13:00 EDT 03/21/2024 21:50 EDT Provider Outr Resulting Lab CHEMISTRY & BLOOD GAS ORDERABLES [facility] [address] [place] [address] documented in this encounter Visit Diagnoses Not on filedocumented in this encounter Care Teams Pie Baker Relationship Specialty Start Date End Date Ashley Chavez ARNP [address] [place] [address] PCP - General 07/11/10 documented as of this encounter
--- OUTSIDE RECORDS SUMMARY | 2024-05-18 14:01 | XMS_ITS | Encounter Summary ---
Author Organization [facility] Address [address] [place] [address] Care Team Providers Care Fabrication Manager Name Role Phone Ashley Chavez Primary Care Provider [phone] Encounter Details Date Type Department Care Team (Late st Contact Info) Description 12/17/2021 Lab Requisition [facility] Pathology & Laboratory Medicine - [address] [address] Outr Resulting Lab, Provider Social History Tobacco [...] Lyme Ab Negative Negative 12/18/2021 10:37 EDT [facility] Blood VENOUS BLOOD / Unknown 12/17/2021 13:30 EDT 12/17/2021 21:32 EDT Provider Outr Resulting Lab IMMUNOLOGY A ND SEROLOGY ORDERABLES Performing Organization Address [facility] Co de Phone Number [facility] [address] [place] [address] * (ABNORMAL) ANTI NUCLEAR AB (FRANCISCO), IFA (12/17/2021 13:30 EDT) FRANCISCO Interpretation Positive(A) Negative 12/18/2021 16:06 EDT [facility] Comment: For titers greater [...] Pattern 1 1:1280 Speckled 12/18/2021 16:06 EDT [facility] Blood VENOUS BLOOD / Unknown 12/17/2021 13:30 EDT 12/17/2021 21:32 EDT Narrative [facility] - 12/18/2021 16:06 EDT Results were obtained with the INOVA NOVA Lite HEp-2 FRANCISCO Kit by indirect immunofluorescence. Provider Outr Resulting Lab IMMUNOLOGY A ND SEROLOGY ORDERABLES Performing Organization Address [facility] Co de Phone Number [facility] [address] [place] [address] documented in this encounter Visit Diagnoses Not on filedocumented in this encounter Care Teams Fabrication Manager Relationship Specialty Start Date End Date Ashley Chavez ARNP [address] [place] [address] PCP - General 07/11/10 documented as of this encounter
--- OUTSIDE RECORDS SUMMARY | 2024-05-18 14:01 | XMS_ITS | Encounter Summary ---
Author Organization [facility] Address [address] [place] [address] Care Team Providers Care Conveyor System Dispatcher Name Role Phone Ashley Chavez Primary Care Provider [phone] Encounter Details Date Type Department Care Team (Late st Contact Info) Description 05/12/2022 Lab Requisition [facility] Pathology & Laboratory Medicine - [address] [id number] Outr Resulting Lab, Provider Social History Tobacco [...] 14:32 EDT) Hold Hold 05/12/2022 22:46 EDT [facility] Blood VENOUS BLOOD / Unknown 05/12/2022 14:32 EDT 05/12/2022 21:40 EDT Provider Outr Resulting Lab LAB INFO SER VICE AND SUPPORT & PHONE RESULT Performing Organization Address [facility]/ZIP Co de Phone Number [facility] [address] [place] [address] * (ABNORMAL) HOMOCYSTEINE (05/12/2022 14:32 EDT) Homocysteine 14.7(H) 5.0 - 13.9 umol/L 05/13/2022 9:05 EDT [facility] Comment:Results may be false ly elevated if sample is not collected on ice or is not removed from cells within 1 hour of collection. Blood VENOUS BLOOD / Unknown 05/12/2022 14:32 EDT 05/12/2022 21:40 EDT Narrative [facility] - 05/13/2022 9:05 [...] & BLOOD GAS ORDERABLES Performing Organization Address [facility] Co de Phone Number [facility] [address] [place] [address] * HAPTOGLOBIN (05/12/2022 14:32 EDT) Pathologist [facility] Haptoglobin 138 32 - 197 mg/dL 05/13/2022 9:55 EDT [facility] Blood VENOUS BLOOD / Unknown 05/12/2022 14:32 EDT 05/12/2022 21:36 EDT Provider Outr Resulting Lab CHEMISTRY & BLOOD GAS ORDERABLES Performing Organization Address [facility] Co de Phone Number [facility] [address] [place] [address] * (ABNORMAL) ANTI NUCLEAR AB (FRANCISCO), IFA (05/12/2022 14:32 EDT) FRANCISCO Interpretation Positive(A) Negative 05/13/2022 14:44 EDT [facility] Comment: Result is [...] Pattern 1 1:5120 Speckled 05/13/2022 14:44 EDT [facility] Blood VENOUS BLOOD / Unknown 05/12/2022 14:32 EDT 05/12/2022 21:36 EDT Narrative [facility] - 05/13/2022 14:44 EDT Results were obtained with the INOVA NOVA Lite HEp-2 FRANCISCO Kit by indirect immunofluorescence. Provider Outr Resulting Lab IMMUNOLOGY A ND SEROLOGY ORDERABLES [facility] [address] [place] [address] documented in this encounter Visit Diagnoses Not on filedocumented in this encounter Care Teams Conveyor System Dispatcher Relationship Specialty Start Date End Date Ashley Chavez ARNP [address] [place] [address] PCP - General 07/11/10 documented as of this encounter
--- OUTSIDE RECORDS SUMMARY | 2024-05-18 14:01 | XMS_ITS | Encounter Summary ---
Author Organization [facility] Address [address] [place] [address] Care Team Providers Care Cattle Shipper Name Role Phone Ashley Chavez Primary Care Provider [phone] Encounter Details Date Type Department Care Team (Late st Contact Info) Description 03/22/2024 Lab Requisition [facility] Pathology & Laboratory Medicine - [address] [address] Consuelo Guerrero, DO [address] [place], [place] [id number] Diaphragmatic hernia without obstruction or gangrene; Anemia, [...] management options, if applicable. 03/24/2024 10:36 [facility] Final Diagnosis A. JEJUNUM, [...] Deeper sections x3 examined. 03/24/2024 10:36 [facility] Attestation There was significant resident/fellow involvement in the diagnostic evaluation of this case. By the signature below, the attending physician certifies that they have personally conducted a gross and/or microscopic examination of the described specimens and rendered or confirmed the above diagnosis. 03/24/2024 10:36 [facility] at [address] Clinical History Anemia, hiatal hernia, 38 cm aguayo diverticulosis 03/24/2024 10:36 [facility] Gross Description A. Received in [...] Torres 03/22/2024 9:36 03/24/2024 10:36 EDT [facility] Resident/Estuardo w: Luis Felipe Bragg DO 03/24/2024 10:36 T [facility] Performing Lab [facility] 10:36 T [facility] Scanned Images 03/24/2024 10:36 T [facility] Tissue POLYP OF COLON [...] EDT Consuelo Guerrero DO PATHOLOGY ORDERABLES [facility] [address] [place] [address] documented in this encounter Visit Diagnoses Diagnosis Diaphragmatic hernia without obstruction or gangrene Diaphragmatic hernia without mention of obstruction or gangrene Anemia, unspecified documented in this encounter Care Teams Cattle Shipper Relationship Specialty Start Date End Date Ashley Chavez ARNP [address] [place] [address] PCP - General 07/11/10 documented as of this encounter
--- OUTSIDE RECORDS SUMMARY | 2024-05-18 14:01 | XMS_ITS | Clinical Summary ---
Author Organization [facility] Address [address] [place] [address] Care Team Providers Care Park Worker Supervisor Name Role Phone Ashley Chavez Primary Care Provider [phone] Encounters Date Type Department Care Team Description 03/22/2024 Lab Requisition [facility] Pathology & Laboratory [address] [address] Consuelo Guerrero, DO Diaphragmatic hernia without obstruction or gangrene; Anemia, unspecified 03/21/2024 Lab Requisition [facility] Pathology & Laboratory [address] [address] Consuelo Guerrero, DO Encounter for other general examination 03/21/2024 Lab Requisition [facility] Pathology & Laboratory [address] [address] Outr Resulting Lab, Provider from Last 3 [...] BLOOD BANK TESTS Performing Organization Address [facility] Co de Phone Number [facility]ANK [address] [place] [address] * HAPTOGLOBIN (03/21/2024 13:00 EDT) Haptoglobin 183 32 - 197 mg/dL 03/22/2024 10:25 EDT [facility] Blood VENOUS BLOOD / Unknown 03/21/2024 13:00 EDT 03/21/2024 21:50 EDT Provider Outr Resulting Lab CHEMISTRY & BLOOD GAS ORDERABLES Performing Organization Address [facility]/ZIP Co de Phone Number [facility] [address] [place], [place] [address] * SURGICAL PATHOLOGY (03/21/2024 11:35 EDT) Note [...] - Deeper sections x3 examined. 03/24/2024 10:36 [facility] Attestation There was significant resident/fellow involvement in the diagnostic evaluation of this case. By the signature below, the attending physician certifies that they have personally conducted a gross and/or microscopic examination of the described specimens and rendered or confirmed the above diagnosis. 03/24/2024 10:36 [facility] at [address]36 Clinical History Anemia, hiatal hernia, 38 cm aguayo diverticulosis 03/24/2024 10:36 [facility] Gross Description A. [...] [facility] Performing Lab [facility] 10:36 EDT [facility] [...] EDT Consuelo Guerrero DO PATHOLOGY ORDERABLES [facility] [address] [place] [address] from Last 3 Months Care Teams Park Worker Supervisor Relationship Specialty Start Date End Date Ashley Chavez ARNP [address] [place] [address] PCP - General 07/11/10
--- OUTSIDE RECORDS SUMMARY | 2024-05-18 14:01 | XMS_ITS | Encounter Summary ---
Author Organization [facility] Address [address] [place] [address] Care Team Providers Care Staff Radiologist Name Role Phone Ashley Chavez Primary Care Provider [phone] Encounter Details Date Type Department Care Team (Late st Contact Info) Description 10/30/2022 Lab Requisition [facility] Pathology & Laboratory Medicine - [address] [address] Outr Resulting Lab, Provider Social History Tobacco [...] Stranded) <12.3 <30.0 IU/mL 11/03/2022 13:08 EDT [facility] Comment: ? Negative: ??<30.0 IU/mL ? Borderline Positive: ??30.0 - 75.0 IU/mL ? Positive: ??>75.0 IU/mL Results were obtained with the INOVA QUANTA Lite dsDNA SC DOMO assay on the [employer] DSX. Blood VENOUS BLOOD / Unknown 10/29/2022 14:00 EDT 10/30/2022 19:27 EDT Provider Outr Resulting Lab IMMUNOLOGY A ND SEROLOGY ORDERABLES Performing Organization Address [facility] de Phone Number [facility] [address] [place] [address] * SM (MORENO) ANTIBODY (10/29/2022 14:00 EDT) [facility] SM (Moreno) Antibody 18.5 <20.0 Units 11/03/2022 14:26 EDT [facility] Comment: ? Negative: <20.0 Units [...] SEROLOGY ORDERABLES Performing Organization Address [facility] de Phone Number [facility] [address] [place] [address] documented in this encounter Visit Diagnoses Not on filedocumented in this encounter Care Teams Staff Radiologist Relationship Specialty Start Date End Date Ashley Chavez ARNP [address] [place] [address] PCP - General 07/11/10 documented as of this encounter
--- OUTSIDE RECORDS SUMMARY | 2024-05-18 14:01 | XMS_ITS | Encounter Summary ---
Author Organization [facility] Address [address] [place] [address] Care Team Providers Care Drier And Evaporator Operator Name Role Phone Ashley Chavez Primary Care Provider [phone] Encounter Details Date Type Department Care Team (Late st Contact Info) Description 04/29/2022 Lab Requisition [facility] Pathology & Laboratory Medicine - [address] [address] Outr Resulting Lab, Provider Social History Tobacco [...] Antibody 1.6 <20.0 Units 04/30/2022 12:23 EDT [facility] Comment: ? Negative: [...] SEROLOGY ORDERABLES Performing Organization Address [facility] de Phone Number [facility] [address] [place] [address] * SSA ANTIBODIES BY DOMO (04/29/2022 7:51 EDT) SSA Antibody 1.5 <20.0 Units 04/30/2022 12:22 EDT [facility] Comment: ? Negative: [...] A ND SEROLOGY ORDERABLES Performing Organization Address [facility] de Phone Number [facility] [address] [place] [address] documented in this encounter Visit Diagnoses Not on filedocumented in this encounter Care Teams Drier And Evaporator Operator Relationship Specialty Start Date End Date Ashley Chavez ARNP [address] [place] [address] PCP - General 07/11/10 documented as of this encounter
--- OUTSIDE RECORDS SUMMARY | 2024-05-18 14:01 | XMS_ITS | Encounter Summary ---
Author Organization [facility] Address [address] [place] [address] Care Team Providers Care Supervisor Fabrication Name Role Phone Scott Ashley WILLIAM Primary Care Provider [phone] Encounter Details Date Type Department Care Team (Late st Contact Info) Description 05/12/2019 Results Only [facility] [phone] Nadira rGegorio MD [address] [place] [phone] Social History Tobacco Use Types Packs/Day [...] ? PURNIMA THACKER ? Accession #: ? [id number] ? : ? 1955 (Age: 63) ??F ? Collect Date: ? 05/12/2019 ? Location: ? [facility] ? Receive Date: ? 05/12/2019 ? Provider: NADIRA GREGORIO MD Copy to: WINTER HANKINS MUSIC CATALOGUER ? Final Pathologic Diagnosis: COLON, CECUM, POLYP, [...] 05/12/2019 6:08 PM End of Report [facility] 05/12/2019 16:0 3 EDT 05/12/2019 16:03 EDT Nadira Gregorio MD PATHOLOGY ORDERABLES [facility] [address] [place] [address] documented in this encounter Visit Diagnoses Not on filedocumented in this encounter Care Teams Supervisor Fabrication Relationship Specialty Start Date End Date Ashley Chavez ARNP [address] [place] [address] PCP - General 07/11/10 documented as of this encounter
--- OUTSIDE RECORDS SUMMARY | 2024-05-18 14:01 | XMS_ITS | Encounter Summary ---
Author Organization [facility] Address [address] [place] [address] Care Team Providers Care Manager Client Support Name Role Phone Scott, Ashley WILLIAM Primary Care Provider [phone] Encounter Details Date Type Department Care Team (Late st Contact Info) Description 03/21/2024 Lab Requisition [facility] Pathology & Laboratory Medicine - [address] [address] Consuelo Guerrero, DO [address] [place], [place] [address] Encounter for other general examination Social History [...] LORY Negative 03/21/2024 22:31 EDT [facility] Blood VENOUS BLOOD / Unknown 03/21/2024 13:00 EDT 03/21/2024 21:51 EDT Consuelo Guerrero DO BLOOD BANK TESTS [facility] [address] [place] [address] documented in this encounter Visit Diagnoses Diagnosis Encounter for other general examination documented in this encounter Care Teams Manager Client Support Relationship Specialty Start Date End Date Ashley Chavez ARNP [address] [place] [address] PCP - General 07/11/10 documented as of this encounter
--- OUTSIDE RECORDS SUMMARY | 2024-05-18 14:01 | XMS_ITS | Encounter Summary ---
Author Organization [facility] Address [address] [place] [address] Care Team Providers Care Insulation Board Calender Operator Name Role Phone Ashley Chavez Primary Care Provider [phone] Encounter Details Date Type Department Care Team (Latest Contact Info) Description 05/12/2019 13:18 EDT - 05/12/2019 23:59 EDT Hospital Encounter [address] [address] Unknown, Provider, Discharge Disposition: Home or Self [...] filedocumented in this encounter Care Teams Insulation Board Calender Operator Relationship Specialty Start Date End Date Ashley Chavez ARNP [address] [place] [address] PCP - General 07/11/10 documented as of this encounter
--- OUTSIDE RECORDS SUMMARY | 2024-05-18 14:01 | XMS_ITS | Encounter Summary ---
Author Organization [facility] Address [address] [place] [address] Care Team Providers Care Nursing Surgical Services Director Name Role Phone Ashley Chavez Primary Care Provider [phone] Encounter Details Date Type Department Care Team (Late st Contact Info) Description 01/07/2023 Lab Requisition [facility] Pathology & Laboratory Medicine - [address] [address] Outr Resulting Lab, Provider Social History Tobacco [...] 56.2 55.8 - 66.1 % 01/08/2023 11:28 [facility] Albumin g/dL 3.9 3.6 - 5.2 g/dL 01/08/2023 11:28 [facility] Alpha-1 % 5.1(H) 2.9 - 4.9 % 01/08/2023 11:28 [facility] Alpha-1 g/dL 0.40 0.15 - 0.40 g/dL 01/08/2023 11:28 [facility] Alpha-2 % 7.0(L) 7.1 - 11.8 % 01/08/2023 11:28 [facility] Alpha-2 g/dL 0.50 0.50 - 1.00 g/dL 01/08/2023 11:28 [facility] Beta % 12.7 8.4 - 13.1 % 01/08/2023 11:28 [facility] Beta g/dL 0.90 0.60 - 1.20 g/dL 01/08/2023 11:28 [facility] Gamma % 19.0(H) 11.1 - 18.8 % 01/08/2023 11:28 [facility] Gamma g/dL 1.30 0.60 - 1.60 g/dL 01/08/2023 11:28 [facility] SPEP Comment No apparent monoclonal protein seen on serum electrophoresis 01/08/2023 11:28 [facility] Comment:See scanned/suppleme ntary report. Total Protein 6.9 6.3 - 8.2 g/dL 01/08/2023 11:28 [facility] Blood VENOUS BLOOD / Unknown 01/06/2023 14:40 EDT 01/07/2023 17:37 EDT Provider Outr Resulting Lab CHEMISTRY & BLOOD GAS ORDERABLES Performing Organization Address City/State/[place] Co de Phone Number [facility] [address] [place] [address] * PROTEIN, TOTAL (01/06/2023 14:40 EDT) Blood VENOUS BLOOD / Unknown 01/06/2023 14:40 EDT 01/07/2023 17:37 EDT Provider Outr Resulting Lab CHEMISTRY & BLOOD GAS ORDERABLES Performing Organization Address [facility]/[place] Co de Phone Number [facility] [address] [place] [address] * (ABNORMAL) EXTRACTABLE NUCLEAR ANTIGEN PANEL (01/06/2023 14:40 EDT) SSA Antibody 1.3 <20.0 Units 01/08/2023 15:42 EDT [facility] Comment: ? Negative: <20.0 Units [...] Antibody 1.5 <20.0 Units 01/08/2023 15:42 EDT [facility] Comment: ? Negative: <20.0 Units [...] Antibody 15.3 <20.0 Units 01/08/2023 15:42 EDT [facility] Comment: ? Negative: <20.0 Units ? Weak Positive: 20.0 - 39.9 Units ? Moderate Positive: 40.0 - 80.0 Units ? Strong Positive: >80.0 Units Results were obtained with the [employer] QUANTA Lite Sm DOMO. ??Sm values obtained with different manufacturers' assay methods may not be used interchangeably. ??The magnitude of the reported IgG levels cannot be correlated to an endpoint titer. TRAUMA PROGRAM MANAGER Antibody 149.1(H) <20.0 Units 01/08/2023 15:42 EDT [facility] Comment: ? Negative: <20.0 Units ? Weak Positive: 20.0 - 39.9 Units ? Moderate Positive: 40.0 - 80.0 Units ? Strong Positive: >80.0 Units Results were obtained with the [employer] Quanta Lite TRAUMA PROGRAM MANAGER DOMO. TRAUMA PROGRAM MANAGER values obtained with different truck sales manager's assay methods may not be used interchangeaby. ??The magnitude of the reported IgG levels cannot be be correlated to an endpoint titer. A positive result in the Quanta Lite TRAUMA PROGRAM MANAGER DOMO indicates the presence of antibodies reactive with the TRAUMA PROGRAM MANAGER/Sm complex but cannot distinguish between anti-Sm and anti-TRAUMA PROGRAM MANAGER activity. Blood VENOUS BLOOD / Unknown 01/06/2023 14:40 EDT 01/07/2023 17:37 EDT Provider Outr Resulting Lab IMMUNOLOGY A ND SEROLOGY ORDERABLES [facility] [address] [place] [address] * (ABNORMAL) ANTI NUCLEAR AB (FRANCISCO), IFA (01/06/2023 14:40 EDT) FRANCISCO Interpretation Positive(A) Negative 01/08/2023 15:22 EDT [facility] Comment: Result is equal to or greater than 1:5120. For titers greater than or equal to 1:160 (except the centromere, nucleolar, and dense fine speckled patterns) it is recommended that specific, follow-up autoantibody testing (such as for dsDNA and Extractable Nuclear Antigens) be performed on all diffuse and/or speckled patterns. FRANCISCO Titer and Pattern 1 1:5120 Speckled 01/08/2023 15:22 EDT [facility] Blood VENOUS BLOOD / Unknown 01/06/2023 14:40 EDT 01/07/2023 17:37 EDT Narrative [facility] - 01/08/2023 15:22 EDT Results were obtained with the INOVA NOVA Lite HEp-2 FRANCISCO Kit by indirect immunofluorescence. Provider Outr Resulting Lab IMMUNOLOGY A ND SEROLOGY ORDERABLES Performing Organization Address City/State/[place] Co de Phone Number [facility] [address] [place] [address] documented in this encounter Visit Diagnoses Not on filedocumented in this encounter Care Teams Nursing Surgical Services Director Relationship Specialty Start Date End Date Ashley Chavez ARNP [address] [place] [address] PCP - General 07/11/10 documented as of this encounter
--- OUTSIDE RECORDS SUMMARY | 2024-05-18 14:01 | XMS_ITS | Encounter Summary ---
Author Organization [facility] Address [address] [place] [address] Care Team Providers Care Hatchery Worker Name Role Phone Scott Ashley WILLIAM Primary Care Provider [phone] Encounter Details Date Type Department Care Team (Late st Contact Info) Description 11/10/2013 Results Only [facility] [phone] Jeni Laird, DRIVE IN TELLER [address] [place], [place] [id number] Social History Tobacco Use Types Packs/Day Years [...] ? PURNIMA THACKER ? Accession #: ? [id number] : ? 1955 (Age: 58) ??F ?Collect Date: ? 11/10/2013 Location: ? [facility] ? Receive Date: ? 11/14/2013 Provider: ?JENI LAIRD DRIVE IN TELLER Copy to: ? Specimen/Source: ?Pap Test, Endocervix, [...] Report PAUL ARELLANO 11/10/2013 11/14/[address] IN TELLER PATHOLOGY ORDERAB LES Performing Organization Address City/State/[facility] Co de Phone Number PAUL ARELLANO [address] [place] [address] documented in this encounter Visit Diagnoses Not on filedocumented in this encounter Care Teams Hatchery Worker Relationship Specialty Start Date End Date Ashley Chavez ARNP [address] [place] [address] PCP - General 07/11/10 documented as of this encounter
--- OUTSIDE RECORDS SUMMARY | 2024-05-18 14:02 | XMS_ITS | Encounter Summary ---
Author Organization [facility] [place] [address] Care Team Providers Care Branch Director Name Role Phone Magdalena Acosta MD Primary Care Provider [phone] Encounter Details Date Type Department Care Team [...] PM EDT Hospital Encounter [facility] [place] [address] Markel Borjas MD [facility] [address] HEMAT[place]Y [place] [address] 05/29/2024 2:00 PM EDT - 05/29/2024 2:43 PM EDT Surgery [facility] [place] [address] Markel Borjas MD [facility] [address] HEMATOLOGY [place] [address] (OSC MSURG) BONE MARROW BIOPSY AND ASPIRATION; DIAGNOSTIC (WRVU 1.44) 06/23/2024 2:00 PM EST Office Visit [place] [phone] Markel Borjas MD [facility] HEMATOLOG[place] [address] 03/01/2025 4:15 PM EDT Office Visit Dermatology at [place] [address] [place] [phone] Marek Bonilla MD [address], [place] DERMATOLOGY [place], [place] [id number] Scheduled Procedures Name Priority Associated Diagnoses Date/Ti me (OSC MSURG) BONE MARROW BIOPSY AND ASPIRATION; DIAGNOSTIC (WRVU 1.44) Anemia, in pt with longstanding neutropenia 05/29/2024 2:00 PM EDT documented as of this encounter Visit Diagnoses Not on filedocumented in this encounter Care Teams Branch Director Relationship Specialty Start Date End Date Magdalena Acosta MD [address] [place] [address] PCP - General Family Medicine 02/05/23 documented as of this encounter
--- OUTSIDE RECORDS SUMMARY | 2024-05-18 14:02 | XMS_ITS | Encounter Summary ---
[place] [address] Care Team Providers Care Mobile Homes Repairer Name Role Phone Magdalena Acosta MD Primary Care Provider [phone] Reason for Referral * Consultation (Routine) - Closed Specialty Diagnoses / Procedures Referred By Contac t Referred To Contact Hematology and Oncology Diagnoses Anemia, unspecified type Consuelo Guerrero DO [address] [place] [address] [address] [place] [address] [facility] [place], [place] Hem Onc [address] [place] [address] Referral ID Status Reason Start Date Expiration Date V isits Requested Visits Authorized [id number] Closed Consult, Test & Treat 04/11/2024 04/11/2025 1 1 Encounter Details Date Type Department Care Team (Late st Contact Info) Description 04/11/2024 Transcribe Orders eDH Incoming Referrals [phone] Consuelo Guerrero DO [address] [place] [address] [address] [place] [address] Anemia, unspecified type Social History [...] PM EDT Hospital Encounter [place] [address] Markel Borjas MD [facility] DR [place] [address] 05/29/2024 2:00 PM EDT - 05/29/2024 2:43 PM EDT Surgery [place] [address] Markel Borjas MD [facility] DR [place] [address] (OSC MSURG) BONE MARROW BIOPSY AND ASPIRATION; DIAGNOSTIC (WRVU 1.44) 06/23/2024 2:00 PM EST Office Visit [place] [address] Markel Borjas MD [facility] DR HEM[place] [address] 03/01/2025 4:15 PM EDT Office Visit Dermatology at [place] [address] [facility] [place] [phone] Marek Bonilla MD [address] [place] [address] Scheduled Procedures Name Priority Associated Diagnoses Date/Ti [...] documented in this encounter Care Teams Mobile Homes Repairer Relationship Specialty Start Date End Date Magdalena Acosta MD [address] [place] [address] PCP - General Family Medicine 02/05/23 documented as of this encounter
--- OUTSIDE RECORDS SUMMARY | 2024-05-18 14:02 | XMS_ITS | Encounter Summary ---
Author Organization [facility] Address [address] [place] [address] Care Team Providers Care Superintendent Colliery Name Role Phone Unavailable Primary Care Provider Unavailabl e Encounter Details Date Type Department Care Team (Late st Contact Info) Description 03/24/2007 11:06 EDT - 03/24/2007 11:59 EDT Hospital Encounter [facility] - [facility] [address] [place] [address] Ashley Chavez ARNP [address] [place] [address] Discharge Disposition: Home or Self Care Social [...]
--- OUTSIDE RECORDS SUMMARY | 2024-05-18 14:02 | XMS_ITS | Encounter Summary ---
Author Organization [facility] Address [address] [place] [address] Care Team Providers Care Bow Maker Machine Tender Name Role Phone Unavailable Primary Care Provider Unavailabl e Encounter Details Date Type Department Care Team (Late st Contact Info) Description 03/24/2007 Results Only [facility] Non-Invasive Cardiology - [facility] [address] [place], [place] [id number] Ashley Chavez ARNP [address] [place] [address] Social History Tobacco Use Types Packs/Day Years [...] ? PURNIMA THACKER ? Accession #: ? [id number] : ? 1955 (Age: 51) ??F ?Collect Date: ? 03/24/2007 Location: ? [facility] ? Receive Date: ? 03/28/2007 Provider: ?ASHLEY THOMAS Copy to: ? Specimen/Source: ?ThinPrep Pap Test, Endocervix, processed on [employer] ThinPrep Imaging System, with manual evaluation Last [...] Ashley THOMAS PATHOLOGY ORDERABLES PAUL ARELLANO [address] [place] [address] documented in this encounter Visit Diagnoses Not on filedocumented in this encounter
--- OUTSIDE RECORDS SUMMARY | 2024-05-18 14:02 | XMS_ITS | Encounter Summary ---
Author Organization [facility] [place] [address] Care Team Providers Care Hvac R Instructor Name Role Phone Magdalena Acosta MD Primary Care Provider [phone] Encounter Details Date Type Department Care Team (Late st Contact Info) Description 05/18/2024 Interpretation Only [address] [address] Magdalena Acosta MD [address] [place], [place] [id number] Social History Tobacco Use Types Packs/Day Years [...] PM EDT Hospital Encounter [place]patient [place] [phone] Markel Borjas MD [facility] [address] [place] [address] 05/29/2024 2:00 PM EDT - 05/29/2024 2:43 PM EDT Surgery [place]patient [place] [phone] Markel Borjas MD [facility] [address] [place] [address] (OSC MSURG) BONE MARROW BIOPSY AND ASPIRATION; DIAGNOSTIC (WRVU 1.44) 06/23/2024 2:00 PM EST Office Visit Hematology [place] [address] Markel Borjas MD [facility] [place] [address] 03/01/2025 4:15 PM EDT Office Visit Dermatology at [place] [address] [facility] [place] [phone] Marek Bonilla MD [address] [facility], [place] [address] Scheduled Procedures Name Priority Associated Diagnoses Date/Ti me (OSC MSURG) BONE MARROW BIOPSY AND ASPIRATION; DIAGNOSTIC (WRVU 1.44) Anemia, in pt with longstanding neutropenia 05/29/2024 2:00 PM EDT documented as of this encounter Procedures Procedure Name Priority Date/Time Associated Diagnosis Comments DXA CENTRAL SPINE, HIP, AND/OR WHOLE BODY (GENERIC) Routine 05/18/2024 11:21 AM EDT documented in this encounter Results * DXA Central Spine, Hip, and/or Whole Body (Generic) (05/18/2024 11:21 AM EDT) PT CLASS O RAD ADMITDTTM [id number] RAD PT RAD INFO [id number]^Dave ^Magdalena [facility] EXAM DESC XDXAC^BD Bone Density DEXA Axial Skeleton^RIS [facility] WORKSTATION ID RADDRIMAGE [facility] Anatomical Region Laterality Modality C-spine, Hip N/A Radiographic Eunice ging 05/18/2024 11:2 1 AM EDT Impressions 05/18/2024 11:25 AM EDT Osteopenia. Significant interval decrease in bone mineral density. FRAX ten-year fracture risk: Major osteoporotic fracture: 14%. Hip fracture: 1.4%. Thank you for letting us participate in the care of this patient. ??If you are a health care provider and have any questions regarding this report, please contact the number below. ??For patients who have questions please contact the health manager managed care that requested your imaging first. ? Narrative 05/18/2024 11:25 AM EDT EXAMINATION: BD Bone Density DEXA Axial Skeleton CLINICAL HISTORY: Asymptomatic menopausal state TECHNIQUE: Scans were acquired at the lumbar spine, left hip. COMPARISON: June 05, 2021 FINDINGS: Lowest T score at a diagnostic region of interest: T score: -1.2, ALYSA:Femoral neck, WHO diagnosis: Osteopenia Total hip: 5.5% decrease Procedure Note Rocael Villatoro MD - 05/18/2024 EXAMINATION: BD Bone Density DEXA Axial Skeleton CLINICAL HISTORY: Asymptomatic menopausal state TECHNIQUE: Scans were acquired at the lumbar spine, left hip. COMPARISON: June 05, 2021 FINDINGS: Lowest T score at a diagnostic region of interest: T score: -1.2, ALYSA:Femoral neck, WHO diagnosis: Osteopenia Total hip: 5.5% decrease IMPRESSION Osteopenia. Significant interval decrease in bone mineral density. FRAX ten-year fracture risk: Major osteoporotic fracture: 14%. Hip fracture: 1.4%. Thank you for letting us participate in the care of this patient. If youare a health care provider and have any questions regarding this report,please contact the number below. For patients who have questions please contactthe health manager managed care that requested your imaging first. Magdalena Acosta MD IMG DEXA ORDERABLES documented in this encounter Visit Diagnoses Not on filedocumented in this encounter Care Teams Hvac R Instructor Relationship Specialty Start Date End Date Magdalena Acosta MD [address] [place] [address] PCP - General Family Medicine 02/05/23 documented as of this encounter
--- OUTSIDE RECORDS SUMMARY | 2024-05-18 14:02 | XMS_ITS | Encounter Summary ---
Author Organization [facility] [place] [address] Care Team Providers Care Manager Night Name Role Phone Magdalena Acosta MD Primary Care Provider [phone] Encounter Details Date Type Department Care Team [...] PM EDT Hospital Encounter [place] [address] Markel Borjas MD [facility] [address] [place] [address] 05/29/2024 2:00 PM EDT - 05/29/2024 2:43 PM EDT Surgery [place] [address] Markel Borjas MD [facility] [address] [place] [address] (OSC MSURG) BONE MARROW BIOPSY AND ASPIRATION; DIAGNOSTIC (WRVU 1.44) 06/23/2024 2:00 PM EST Office Visit [place]ematology [place] [phone] Markel Borjas MD [facility] [place] [address] 03/01/2025 4:15 PM EDT Office Visit Dermatology at [place] [address] [place] [phone] Marek Bonilla MD [address], [address] DERMATOLOGY [place], [place] [phone] Scheduled Procedures Name Priority Associated Diagnoses Date/Ti me (OSC MSURG) BONE MARROW BIOPSY AND ASPIRATION; DIAGNOSTIC (WRVU 1.44) Anemia, in pt with longstanding neutropenia 05/29/2024 2:00 PM EDT documented as of this encounter Visit Diagnoses Not on filedocumented in this encounter Care Teams Manager Night Relationship Specialty Start Date End Date Magdalena Acosta MD [address] [place] [address] PCP - General Family Medicine 02/05/23 documented as of this encounter
--- OUTSIDE RECORDS SUMMARY | 2024-05-18 14:02 | XMS_ITS | Encounter Summary ---
Author Organization [facility] Address [address] [place] [address] Care Team Providers Care Child Development Director Name Role Phone Unavailable Primary Care Provider Unavailabl e Encounter Details Date Type Department Care Team (Late st Contact Info) Description 06/29/2007 Results Only [facility] [address] [place] [address] Sánchez Acevedo MD [address] [place] [address] Social History Tobacco Use Types Packs/Day Years [...] ? PURNIMA THACKER ? Accession #: ? [id number] ? : ? 1955 (Age: 51) ??F [...] covered by a smooth white serosa. ??Three artist's representative sections of the gallbladder are submitted in one cassette. ??(Sriram Elias/[facility] End of Report [facility] 06/29/2007 06/29/2007 21: 23 EST Sánchez Acevedo MD PATHOLOGY ORDERABLE [facility] [address] [place] [address] documented in this encounter Visit Diagnoses Not on filedocumented in this encounter
--- OUTSIDE RECORDS SUMMARY | 2024-05-18 14:02 | XMS_ITS | Encounter Summary ---
Author Organization [facility] [place] [address] Care Team Providers Care Security Infrastructure Engineer Name Role Phone Magdalena Acosta MD Primary Care Provider [phone] Encounter Details Date Type Department Care Team (Late st Contact Info) Description 05/27/2023 Refill Cardiology at [address] [phone] Vero Marrero, RN Social History Tobacco Use [...] EDT TC to Nurse Sosa at [facility] to relay response from Jay Maza copied below. Nurse Sosa states they will send a new prescription to patient's preferred pharmacy and call the patient with the medication information. No print prescription sent to update med list. May 27, 2023 Jay Maza PA to [place] 05/27/23 2:44 PM OK to change ticagrelor to Clopidogrel. Now, she should be taking ticagrelor 90mg BID. When she switches, she can take ticagrelor, then the next morning, stop ticagrelor, instead take clopidogrel 300mg once, then after that 75mg once daily. Jay Marrero information technology analyst Clinic at [facility] [phone] * Telephone Encounter - Vero Marrero RN - 05/27/2023 1:46 PM EDT VM received from triage nurse Sosa at [facility] stating patient was seen today by [...] possible. Vero Marrero RN Cardiology Clinic at [facility] [phone] documented in this encounter Plan of Treatment Upcoming Encounters Date Type Department Care Team (Late st Contact Info) Description 05/29/2024 2:00 PM EDT Hospital Encounter [place] [phone] [facility] [place] [address] 05/29/2024 2:00 PM EDT - 05/29/2024 2:43 PM EDT Surgery [place] [phone] [facility] HEMATOLOGY AND ONCOLOGY [place] [id number] (OSC MSURG) BONE MARROW BIOPSY AND ASPIRATION; DIAGNOSTIC (WRVU 1.44) 06/23/2024 2:00 PM EST Office Visit Hematology [place] [address] [facility] DR HEMATOLOGY [place] [address] 03/01/2025 4:15 PM EDT Office Visit Dermatology at [place] [address] [place] [facility] [place] [address] Marek Bonilla MD [address], [place] [address] Scheduled Procedures Name Priority Associated Diagnoses Date/Ti me (OSC MSURG) BONE MARROW BIOPSY AND ASPIRATION; DIAGNOSTIC (WRVU 1.44) Anemia, in pt with longstanding neutropenia 05/29/2024 2:00 PM EDT documented as of this encounter Visit Diagnoses Diagnosis Aortic valve stenosis, etiology of cardiac valve disease unspecified documented in this encounter Care Teams Security Infrastructure Engineer Relationship Specialty Start Date End Date Magdalena Acosta MD [address] [place] [address] PCP - General Family Medicine 02/05/23 documented as of this encounter
--- OUTSIDE RECORDS SUMMARY | 2024-05-18 14:02 | XMS_ITS | Encounter Summary ---
Author Organization [facility] [place] [address] Care Team Providers Care Product Safety Expert Name Role Phone Magdalena Acosta MD Primary Care Provider [phone] Reason for Visit * Reason Comments Coronary Artery Disease Hypertension Aortic Stenosis Encounter Details Date Type Department Care Team (Latest Contact Info) Description 07/20/2023 4:40 PM EST TH Visit (TeleHealth) Cardiology at [address] [address] Jay Maza PA [facility] [place] [address] HFrEF (heart failure with reduced ejection fraction); [...] Maza PA - 07/20/2023 4:40 PM EST [facility] Interventional Cardiology CARDIOLOGY [...] lieu of an in person office visit. Commercial Energy Auditor: Antelmo Sharma MD ([facility] Cards) Maria Luz Mejia MD ([facility] / [facility] cards) Problem List: : prior surgical [...] Mild coronary artery disease by [facility] 11/09/2022 I25.10 Heart failure with [...] notable for coronary artery protection given low [id number] distance. There was no obstruction post Valve deployment, but the stent could not be removed safely, so it was deployed. 4.0 mm x 30mm in left main. She was loaded on brilinta aka ticagrelor. Immediately post valve deployment, chest compressions to circulate central epinephrine which was administered given her hypotension, low LVEF, and low cardiac reserve. Next, the patient was transferred to [facility] for pressor and inotropic support. Pressors weaned overnight. Cardiac indices by thermodilution remained greater than 3 with continued Milrinone 0.125 mcg/kg/min. EKG the next day with NSR with stable KS/QRS intervals. Hemoglobin 7.8 [...] arms and wrists. Successful right transfemoral TAVR Lxqlr-ti-Areec with a 23 mm Lai 3 THV. [...] leads Confirmed by MD Harshil, Haris Bell ([id number]) on 05/10/2023 8:11:46 AM Cardiac Cath 11/09/2022 [...] in chart review and direct patient contact. [id number] 0-5min [id number] 6-10min [id number] 11-15min [id number] 16-20min x [id number] 21-30min [id number] 31-40min [id number] 40+ min Jay Maza PA-C Interventional Cardiology [facility] Heart and Vascular [facility] Pager [phone] documented in this encounter Plan of Treatment Upcoming Encounters Date Type Department Care Team (Late st Contact Info) Description 05/29/2024 2:00 PM EDT Hospital Encounter [place]patient [place] [phone] Markel Borjas MD [facility] [address] [place] [address] 05/29/2024 2:00 PM EDT - 05/29/2024 2:43 PM EDT Surgery [place] [phone] Markel Borjas MD [facility] [place] [address] (OSC MSURG) BONE MARROW BIOPSY AND ASPIRATION; DIAGNOSTIC (WRVU 1.44) 06/23/2024 2:00 PM EST Office Visit [place]ology [place] [phone] Markel Borjas MD [facility] [place] [address] 03/01/2025 4:15 PM EDT Office Visit Dermatology at [place] [address] [place] [address] Marek Bonilla MD [address], [address] DERMATOLOGY [place], [place] [address] Scheduled Procedures Name Priority Associated Diagnoses Date/Ti me (OSC MSURG) BONE MARROW BIOPSY AND ASPIRATION; DIAGNOSTIC (WRVU 1.44) Anemia, in pt with longstanding neutropenia 05/29/2024 2:00 PM EDT documented as of this encounter Visit Diagnoses Diagnosis HFrEF (heart failure with reduced ejection fraction) Hypertension, unspecified type Aortic valve stenosis, etiology of cardiac valve disease unspecified documented in this encounter Care Teams Product Safety Expert Relationship Specialty Start Date End Date Magdalena Acosta MD [address] [place] [address] PCP - General Family Medicine 02/05/23 documented as of this encounter
--- OUTSIDE RECORDS SUMMARY | 2024-05-18 14:02 | XMS_ITS | Encounter Summary ---
Author Organization [facility] [place] [address] Care Team Providers Care Industrial Health And Safety Professor Name Role Phone Magdalena Acosta MD Primary Care Provider [phone] Reason for Referral * Diagnostic Test (Routine) - New Request Specialty Diagnoses / Procedures Referred By Contac t Referred To Contact Cardiology Diagnoses S/P TAVR (transcatheter aortic valve replacement) Procedures Echocardiogram Transthoracic Antelmo Sharma MD [facility] [place] [address] [facility] [place] [address] Referral ID Status Reason Start Date Expiration Date Visits Requested Visits Authorized [id number] New Request Specialty Service Requested 12/16/2023 12/15/2024 1 1 Encounter Details Date Type Department Care Team (Late st Contact Info) Description 12/16/2023 Orders Only Cardiology at [address] [address] Antelmo Sharma MD [facility] [place] [address] S/P TAVR (transcatheter aortic valve [...] PM EDT Hospital Encounter [place] [phone] Markel Borjas MD [facility] DR HEMATOLOGY [place] [address] 05/29/2024 2:00 PM EDT - 05/29/2024 2:43 PM EDT Surgery [place] [address] Markel Borjas MD [facility] DR HEMATOLOGY [place] [address] (OSC MSURG) BONE MARROW BIOPSY AND ASPIRATION; DIAGNOSTIC (WRVU 1.44) 06/23/2024 2:00 PM EST Office Visit Hematology [place] [address] Markel Borjas MD [facility] HEMATOLOGY [place] [address] 03/01/2025 4:15 PM EDT Office Visit Dermatology at [address] [place] [phone] Marek Bonilla MD [address] [facility], [place] [address] Scheduled Orders Name Type Priority Associated Diagnoses Order Schedule Echocardiogram Transthoracic Echocardiography Routine S/P TAVR (transcatheter aortic valve replacement) Expected: 12/16/2023 (Approximate), Expires: 06/17/2024 EKG 12 Lead ECG Routine S/P TAVR (transcatheter aortic valve replacement) Expected: 12/16/2023 (Approximate), Expires: 06/17/2024 Scheduled Procedures Name Priority Associated Diagnoses Date/Ti me ([facility] MS[facility]) BONE MARROW BIOPSY AND ASPIRATION; DIAGNOSTIC (WRVU 1.44) Anemia, in pt with longstanding neutropenia 05/29/2024 2:00 PM EDT documented as of this encounter Visit Diagnoses Diagnosis S/P TAVR (transcatheter aortic valve replacement) documented in this encounter Care Teams Industrial Health And Safety Professor Relationship Specialty Start Date End Date Magdalena Acosta MD [address] [place] [address] PCP - General Family Medicine 02/05/23 documented as of this encounter
--- OUTSIDE RECORDS SUMMARY | 2024-05-18 14:02 | XMS_ITS | Encounter Summary ---
Author Organization [facility] [address] Care Team Providers Care Starcher And Tenter Range Feeder Name Role Phone Magdalena Acosta MD Primary Care Provider [phone] Reason for Visit * Reason Comments Aortic Stenosis Coronary Artery Disease Hypertension Encounter Details Date Type Department Care Team (Latest Contact Info) Description 11/16/2023 11:40 AM EDT TH Visit (TeleHealth) Cardiology at [address] [address] Jay Maza PA [facility] [place] [address] Aortic valve stenosis, etiology of cardiac valve disease unspecified; Coronary artery disease, unspecified vessel or lesion type, unspecified whether angina present, unspecified whether [place] or transplanted heart Social History Tobacco Use [...] from the original note were not included. [facility] Interventional Cardiology CARDIOLOGY TELE VISIT NOTE 11/16/23 Patient: Purnima Thacker Prior to the initiation of our discussion, the risks and benefits of tele health visits were discussed, and the patient consented verbally to this being a virtual telehealth visit in lieu of an in person office visit. CARDIOLOGISTS: Antelmo Sharma MD ([facility]) Maria Luz Mejia MD ([facility] - [facility]) Problem List: Aortic valve stenosis: prior [...] notable for coronary artery protection given low [id number] distance. There was no obstruction post Valve [...] had a very reassuring recent echo in [facility], in scanned docs. LVEF 55%. Valve [...] leads Confirmed by MD Harshil, Haris Bell ([id number]) on 05/10/2023 8:11:46 AM Cardiac Cath 11/09/2022 [...] in one year. EKATERINA Thompson Time spent: [id number] 0-5min [id number] 6-10min [id number] 11-15min x [id number] 16-20min [id number] 21-30min [id number] 31-40min [id number] 40+ min Jay Maza PA-C Interventional Cardiology [facility] Pager [phone] documented in this encounter Plan of Treatment Upcoming Encounters Date Type Department Care Team (Late st Contact Info) Description 05/29/2024 2:00 PM EDT Hospital Encounter Outpatient [place] [address] [facility] DR [place] [address] 05/29/2024 2:00 PM EDT - 05/29/2024 2:43 PM EDT Surgery [place]patient [place] [phone] [facility] DR [place] [address] (OSC MSURG) BONE MARROW BIOPSY AND ASPIRATION; DIAGNOSTIC (WRVU 1.44) 06/23/2024 2:00 PM EST Office Visit Hematology [place] [address] [facility] DR [place] [address] 03/01/2025 4:15 PM EDT Office Visit Dermatology at [address] [address] Marek Bonilla MD [address] [facility], [place] [address] Scheduled Procedures Name Priority Associated Diagnoses Date/Ti me (OSC MSURG) BONE MARROW BIOPSY AND ASPIRATION; DIAGNOSTIC (WRVU 1.44) Anemia, in pt with longstanding neutropenia 05/29/2024 2:00 PM EDT documented as of this encounter Visit Diagnoses Diagnosis Aortic valve stenosis, etiology of cardiac valve disease unspecified Coronary artery disease, unspecified vessel or lesion type, unspecified whether angina present, unspecified whether [place] or transplanted heart documented in this encounter Care Teams Starcher And Tenter Range Feeder Relationship Specialty Start Date End Date Magdalena Acosta MD [address] [place] [address] PCP - General Family Medicine 02/05/23 documented as of this encounter
--- OUTSIDE RECORDS SUMMARY | 2024-05-18 14:02 | XMS_ITS | Encounter Summary ---
Author Organization [facility] [place] [address] Care Team Providers Care Ground Worker Name Role Phone Magdalena Acosta MD Primary Care Provider [phone] Encounter Details Date Type Department Care Team [...] PM EDT Hospital Encounter [place]patient [place] [address] Markel Borjas MD [facility] [address] [place] [address] 05/29/2024 2:00 PM EDT - 05/29/2024 2:43 PM EDT Surgery [place]patient [place] [address] Markel Borjas MD [facility] DR [place] [address] (OSC MSURG) BONE MARROW BIOPSY AND ASPIRATION; DIAGNOSTIC (WRVU 1.44) 06/23/2024 2:00 PM EST Office Visit Hematology [place] [address] Markel Borjas MD [facility] [place] [address] 03/01/2025 4:15 PM EDT Office Visit Dermatology at [place] [address] [place] [phone] Marek Bonilla MD [address] [facility] [address], QU[address] A DERMATOLOGY [place], [place] [address] Scheduled Procedures Name Priority Associated Diagnoses Date/Ti me (OSC MSURG) BONE MARROW BIOPSY AND ASPIRATION; DIAGNOSTIC (WRVU 1.44) Anemia, in pt with longstanding neutropenia 05/29/2024 2:00 PM EDT documented as of this encounter Visit Diagnoses Not on filedocumented in this encounter Care Teams Ground Worker Relationship Specialty Start Date End Date Magdalena Acosta MD [address] [place] [address] PCP - General Family Medicine 02/05/23 documented as of this encounter
--- OUTSIDE RECORDS SUMMARY | 2024-05-18 14:02 | XMS_ITS | Encounter Summary ---
Author Organization [facility] [place] [address] Care Team Providers Care Heart Specialist Name Role Phone Magdalena Acosta MD Primary Care Provider [phone] Encounter Details Date Type Department Care Team (Late st Contact Info) Description 05/18/2024 Interpretation Only [address] [address] Magdalena Acosta MD [address] [place], [place] [id number] Social History Tobacco Use Types Packs/Day Years [...] Hospital Encounter Outpatient [place] [phone] Markel Borjas MD [facility] [address] [place] [address] 05/29/2024 2:00 PM EDT - 05/29/2024 2:43 PM EDT Surgery [place]patient [place] [phone] Markel Borjas MD [facility] [place] [address] (OSC MSURG) BONE MARROW BIOPSY AND ASPIRATION; DIAGNOSTIC (WRVU 1.44) 06/23/2024 2:00 PM EST Office Visit Hematology [place] [address] Markel Borjas MD [facility] [place] [address] 03/01/2025 4:15 PM EDT Office Visit Dermatology at [place] [address] [place] [phone] Marek Bonilla MD [address], [place] [address] Pending Results Name Type Priority Associated Diagnoses Date /Time MAMMO SCREENING CAD BILATERAL (CH) Imaging Routine 05/18/2024 11:21 AM EDT Scheduled Procedures Name Priority Associated Diagnoses Date/Ti me (OSC MSURG) BONE MARROW BIOPSY AND ASPIRATION; DIAGNOSTIC (WRVU 1.44) Anemia, in pt with longstanding neutropenia 05/29/2024 2:00 PM EDT documented as of this encounter Visit Diagnoses Not on filedocumented in this encounter Care Teams Heart Specialist Relationship Specialty Start Date End Date Magdalena Acosta MD [address] [place] [address] PCP - General Family Medicine 02/05/23 documented as of this encounter
--- OUTSIDE RECORDS SUMMARY | 2024-05-18 14:02 | XMS_ITS | Encounter Summary ---
Author Organization [facility] [place] [address] Care Team Providers Care Restaurant Cook Name Role Phone Magdalena Acosta MD [...] PM EDT Hospital Encounter [place]patient [place] [address] Markel Borjas MD [facility] [address] HEMATOLOGY [place] [address] 05/29/2024 2:00 PM EDT - 05/29/2024 2:43 PM EDT Surgery [place]patient [place] [address] Markel Borjas MD [facility] DR HEMATOLOGY [place] [address] (OSC MSURG) BONE MARROW BIOPSY AND ASPIRATION; DIAGNOSTIC (WRVU 1.44) 06/23/2024 2:00 PM EST Office Visit Hematology [place] [phone] Markel Borjas MD [facility] HEMATOLOGY [place] [address] 03/01/2025 4:15 PM EDT Office Visit Dermatology at [place] [address] [place] [phone] Marek Bonilla MD [address], [address] DERMATOLOGY [place], [place] [address] Scheduled Procedures Name Priority Associated Diagnoses Date/Ti me (OSC MSURG) BONE MARROW BIOPSY AND ASPIRATION; DIAGNOSTIC (WRVU 1.44) Anemia, in pt with longstanding neutropenia 05/29/2024 2:00 PM EDT documented as of this encounter Visit Diagnoses Not on filedocumented in this encounter Care Teams Restaurant Cook Relationship Specialty Start Date End Date Magdalena Acosta MD [address] [place] [address] PCP - General Family Medicine 02/05/23 documented as of this encounter
--- OUTSIDE RECORDS SUMMARY | 2024-05-18 14:02 | XMS_ITS | Clinical Summary ---
Author Organization [facility] Address [place] [address] Care Team Providers Care Occupational Therapy Supervisor Name Role Phone Magdalena Acosta MD Primary Care Provider [phone] Allergies No known active allergies Medications Medication [...] fraction 05/08/2023 Mild coronary artery disease by [facility] 11/09/2022 Heart failure with [...] Encounters Date Type Department Care Team Description 05/18/2024 Interpretation Only [address] [address] Magdalena Acosta MD 05/18/2024 Interpretation Only [address] [address] Magdalena Acosta MD 05/12/2024 10:00 AM EDT Office Visit Hematology [place] [address] Markel Borjas MD Chronic idiopathic neutropenia 05/12/2024 9:00 AM EDT Laboratory Appointment Lab at [facility] Hematology Oncology [address] [place] [address] S/P TAVR (transcatheter aortic valve replacement); Chronic idiopathic neutropenia 05/12/2024 Travel 05/10/2024 Travel 04/11/2024 Transcribe Orders eDH Incoming Referrals [phone] Consuelo Guerrero, DO Anemia, unspecified type 03/01/2024 Telephone Cardiology at [address] [address] Cynthia Monsalve RN Pre Procedure Call (DAPT hold for EGD and colo?) 02/22/2024 4:15 PM EDT Office Visit Dermatology at [address] [phone] Marek Bonilla MD Seborrheic keratosis; Rosacea; Nevus [...] PM EDT Hospital Encounter [place] [phone] Markel Borjas MD [facility] [address] [place] [address] 05/29/2024 2:00 PM EDT - 05/29/2024 2:43 PM EDT Surgery [place] [phone] Markel Borjas MD [facility] [address] [place] [address] (OSC MSURG) BONE MARROW BIOPSY AND ASPIRATION; DIAGNOSTIC (WRVU 1.44) 06/23/2024 2:00 PM EST Office Visit Hematology [place] [address] Markel Borjas MD [facility] [place] [address] 03/01/2025 4:15 PM EDT Office Visit Dermatology at [place] [address] [facility] [place] [address] Marek Bonilla MD [address] [facility], [place] [address] Scheduled Procedures Name Priority Associated Diagnoses Date/Ti [...] 05/22/2023, Additional history exists Bone Density Scan 05/18/2039 05/18/2024, 06/05/2021 Medical Devices Implanted Type Area Fly Setter Device Identifier Shelf Expiration Date Model / Serial / Lot Valve,Aor,Pericar d,Magna,25mm ([id number]) - [id number] Implanted:Qty: 1 on 09/21/2016 by Alirio Esparza MD at [facility] IMPLANTS N/A: Heart DO NOT USE [employer] - [id number] 06/02/2020 [id number] / / [id number] Cable,Blnt,Ss,38i n ([id number]) - [id number] Implanted:Qty: 4 on 09/21/2016 by Alirio Esparza MD at [facility] IMPLANTS N/A: Chest [employer] - [id number] 04/29/2021 [id number] / / [id number] Patch,Cav,Pericar d,2x5cm ([id number]) ([employer]ore[employer]) - [id number] Implanted:Qty: 1 on 09/21/2016 by Alirio Esparza MD at [facility] IMPLANTS N/A: Heart DO NOT USE [employer] - [id number] 04/21/2018 [id number] / / [id number] Tavr-05/12/2023 Implanted:Qty: 1 on 05/12/2023 by Antelmo Sharma MD Other Heart [employer] [place] [id number] / [id number] / Description:[employer] ABBY 3 ULTRA RESILIA TRANSCATHETER HEART VALVE Procedures Procedure Name Priority Date/Time Associated Diagnosis Comments DXA CENTRAL SPINE, HIP, AND/OR WHOLE BODY (GENERIC) Routine 05/18/2024 11:21 AM EDT RETICULOCYTE COUNT STAT 05/12/2024 8: 56 AM EDT Chronic idiopathic neutropenia COMPREHENSIVE METABOLIC PANEL STAT 05/12/2024 8:56 AM EDT Chronic idiopathic neutropenia CBC (WITH DIFF) STAT 05/12/2024 8:56 AM EDT Chronic idiopathic neutropenia LAB SCAN 02/24/2024 12:00 AM EDT MAMMO SCREENING CAD BILATERAL Routine 06/05/2021 11:42 AM EDT from Last 3 Months or Most Recently Relevant to Health Maintenance Results * DXA Central Spine, Hip, and/or Whole Body (Generic) (05/18/2024 11:21 AM EDT) PT CLASS O RAD ADMITDTTM [id number] RAD PT RAD INFO [id number]^Dave ^Magdalena RAD EXAM DESC XDXAC^BD Bone Density DEXA Axial Skeleton^RIS [facility] WORKSTATION ID RADDRIMAGE RAD Anatomical Region Laterality Modality C-spine, Hip [...] questions please contact the health resident care assistant that requested your imaging first. ? Electronically signed by: Rocael Villatoro MD, [facility] ([phone]), at 05/18/2024 11:25 AM Narrative 05/18/2024 11:25 AM EDT EXAMINATION: BD [...] have questions please contactthe health resident care assistant that requested your imaging first. Electronically signed by: Rocael Villatoro MD, [facility]([phone]), at 05/18/2024 11:25 AM Magdalena Acosta MD IMG DEXA ORDERABLES * Reticulocyte Count (05/12/2024 8:56 AM EDT) Reticulocyte % 1.20 0.70 - 2.50 % 05/12/2024 9:32 AM EDT [facility] Retic Abs # 0.0397 0.0200 - 0.1100 x10(6)/mcL 05/12/2024 9:32 AM EDT [facility] Immature Retic% 8.1 0.5 - 13.8 % 05/12/2024 9:32 AM EDT [facility] Reticulated Hgb 35.2 29.8 - 39.4 pg 05/12/2024 9:32 AM EDT [facility] Blood VENOUS BLOOD SPECIMEN / Unknown Venipuncture / Unknown 05/12/2024 8:56 AM EDT 05/12/2024 8:56 AM EDT Tova Russell DROSSER HEMATOLOGY ORDERABL ES [facility] [place] [address] * (ABNORMAL) CBC (with Diff) (05/12/2024 8:56 AM EDT) White Blood Cell 3.47(L) 4.00 - 9.50 x10(3)/mc L 05/12/2024 9:32 AM EDT [facility] Red Blood Cell 3.31(L) 4.00 - 5.21 x10(6)/mc L 05/12/2024 9:32 AM EDT [facility] Hemoglobin 11.1(L) 11.7 - 15.5 g/dL 05/12/2024 9:32 AM [facility] Hematocrit 33.2(L) 35.7 - 45.8 % 05/12/2024 9:32 AM [facility] Mean Cell Volume 100.3(H) 82.6 - 94.4 fL 05/12/2024 9:32 AM [facility] Mean Cell Hemoglobin 33.5(H) 27.1 - 32.0 pg 05/12/2024 9:32 AM [facility] Mean Cell Hemoglobin Concentration 33.4 31.7 - 35.0 g/dL 05/12/2024 9:32 AM [facility] Platelet 142(L) 145 - 357 x10(3)/mc L 05/12/2024 9:32 AM [facility] Mean Platelet Volume 8.7 7.6 - 12.9 fL 05/12/2024 9:32 AM [facility] RDW Standard Deviation 44.4 37.0 - 46.0 fL 05/12/2024 9:32 AM [facility] RDW coefficient of variation 12.0 11.5 - 14.1 % 05/12/2024 9:32 AM [facility] NRBC% auto 0.0 % 05/12/2024 9:32 AM [facility] NRBC Absolute <0.01 <0.01 x10(3)/mc L 05/12/2024 9:32 AM [facility] Neutrophil % 69.7 % 05/12/2024 9:32 AM [facility] Neutrophil Absolute (ANC) - Automated 2.42 1.70 - 6.10 x10(3)/mc L 05/12/2024 9:32 AM [facility] Lymph % 16.7 % 05/12/2024 9:32 AM [facility] Lymph Absolute 0.58(L) 0.90 - 3.20 x10(3)/mc L 05/12/2024 9:32 AM EDT [facility] Monocyte % 12.1 % 05/12/2024 9:32 AM EDT [facility] Monocyte Absolute 0.42 0.30 - 0.90 x10(3)/mc L 05/12/2024 9:32 AM EDT [facility] Eos % 0.6 % 05/12/2024 9:32 AM EDT [facility] Eos Absolute <0.04 0.00 - 0.40 x10(3)/mc L 05/12/2024 9:32 AM EDT [facility] Basophil % 0.6 % 05/12/2024 9:32 AM EDT [facility] Baso Absolute <0.04 0.00 - 0.10 x10(3)/mc L 05/12/2024 9:32 AM EDT [facility] Immature Gran % 0.3 % 9:32 AM EDT [facility] Immature Gran Absolute <0.04 0.00 - 0.04 x10(3)/mc L 05/12/2024 9:32 AM EDT [facility] Blood VENOUS BLOOD SPECIMEN / Unknown Venipuncture / Unknown 05/12/2024 8:56 AM EDT 05/12/2024 8:56 AM EDT Tova Russell DROSSER HEMATOLOGY ORDERABL ES [facility] [place] [address] * (ABNORMAL) Comprehensive metabolic panel Non-fasting (05/12/2024 8:56 AM EDT) Glucose 86 65 - 199 mg/dL 05/12/2024 11:36 AM EDT [facility] Comment:Glucose Concentratio n >=200 mg/dL plus symptoms is consistent with Diabetes Mellitus. Blood Urea Nitrogen 20(H) 8 - 18 mg/dL 05/12/2024 11:36 AM [facility] Creatinine 0.88 0.70 - 1.20 mg/dL 05/12/2024 11:36 AM [facility] Sodium 145 135 - 145 mMol/L 05/12/2024 11:36 AM [facility] Potassium 4.6 3.5 - 5.0 mMol/L 05/12/2024 11:36 AM [facility] Chloride 109(H) 98 - 107 mMol/L 05/12/2024 11:36 AM [facility] Carbon Dioxide 21(L) 22 - 31 mMol/L 05/12/2024 11:36 AM [facility] Anion Gap 15 5 - 15 mMol/L 05/12/2024 11:36 AM [facility] Comment:Not Calculated. Calcium 9.9 8.5 - 10.5 mg/dL 05/12/2024 11:36 AM [facility] Protein, Total 7.3 6.1 - 8.0 g/dL 05/12/2024 11:36 AM [facility] Albumin 4.5 3.2 - 5.2 g/dL 05/12/2024 11:36 AM [facility] Aspartate Aminotransferase 24 <=30 unit/L 05/12/2024 11:36 AM [facility] Alanine Aminotransferase 14 0 - 30 unit/L 05/12/2024 11:36 AM [facility] Alkaline Phosphatase 98 35 - 105 unit/L 05/12/2024 11:36 AM [facility] Bilirubin, Total 0.2 <=1.3 mg/dL 05/12/2024 11:36 AM [facility] Est Glomerular Filtration Rate - Female 72 mL/min/1. 73 m?? 05/12/2024 11:36 AM [facility] Comment: This patient's estimated GFR was [...] Fasting Status No 05/12/2024 11:36 AM EDT [facility] Blood VENOUS BLOOD SPECIMEN / Unknown Venipuncture / Unknown 05/12/2024 8:56 AM EDT 05/12/2024 8:56 AM EDT Tova Russell DROSSER CHEMISTRY ORDERABLE S [facility] [place] [address] * Scan Doc: Lab (02/24/2024 12:00 AM EDT) Narrative 02/24/2024 12:00 AM EDT Ordered by an unspecified provider. Scanning Provider MEDIA MGR SCAN EXT O RDR/RSLT * Mammo Screening Cad Bilateral (06/05/2021 11:42 AM EDT) PT CLASS O DH RAD ADMITDTTM DH RAD PT DH RAD INFO [id number]^EV ERETT^DEBORAH^E DH RAD EXAM DESC MADDSC^SCREEN MAMMO [...] questions please contact the health resident care assistant that requested your imaging first. ? Electronically signed by: Rocael Villatoro MD, [facility] ([phone]), at 06/05/2021 1:27 PM Narrative 06/05/2021 1:27 [...] have questions please contactthe health resident care assistant that requested your imaging first. Deborah LLAMAS [...] capacity to make decision: Yes Care Teams Occupational Therapy Supervisor Relationship Specialty Start Date End Date Magdalena Acosta MD [address] [place] [address] PCP - General Family Medicine 02/05/23
--- OUTSIDE RECORDS SUMMARY | 2024-05-18 14:02 | XMS_ITS | Encounter Summary ---
Author Organization [facility] [place] [address] Care Team Providers Care Mosaicist Name Role Phone Magdalena Acosta MD Primary [...] PM EDT Hospital Encounter [place] [address] Markel Borjas MD [facility] [address] [place] [address] 05/29/2024 2:00 PM EDT - 05/29/2024 2:43 PM EDT Surgery [place] [address] Markel Borjas MD [facility] [address] [place] [address] (OSC MSURG) BONE MARROW BIOPSY AND ASPIRATION; DIAGNOSTIC (WRVU 1.44) 06/23/2024 2:00 PM EST Office Visit Hematology [place] [address] Markel Borjas MD [facility] [place] [address] 03/01/2025 4:15 PM EDT Office Visit Dermatology at [place] [address] [place] [phone] Marek Bonilla MD [address] DERMATOLOGY [place], [place] [address] Scheduled Procedures Name Priority Associated Diagnoses Date/Ti me (OSC MSURG) BONE MARROW BIOPSY AND ASPIRATION; DIAGNOSTIC (WRVU 1.44) Anemia, in pt with longstanding neutropenia 05/29/2024 2:00 PM EDT documented as of this encounter Visit Diagnoses Not on filedocumented in this encounter Care Teams Mosaicist Relationship Specialty Start Date End Date Magdalena Acosta MD [address] [place] [address] PCP - General Family Medicine 02/05/23 documented as of this encounter
--- OUTSIDE RECORDS SUMMARY | 2024-05-18 14:02 | XMS_ITS | Encounter Summary ---
Author Organization [facility] [place] [address] Care Team Providers Care Engine Watchman Name Role Phone Magdalena Acosta MD Primary Care Provider [phone] Encounter Details Date Type Department Care Team (Late st Contact Info) Description 07/29/2023 11:00 AM EST Office [place] [address] Magdalena Peralta MD [facility] [place] [address] Mixed connective tissue disease Social History Tobacco [...] 1:5120 speckled; VIC negative; Myositis panel with GAS COLLECTION SYSTEM OPERATOR ab 149.1 (positive); Anti U1RNP IgG [...] Viramontes. Magdalena Peralta MD Rheumatology Fellow Pager: [phone] * Kia Viramontes DO - 07/29/2023 11:00 AM EST ATTENDING ADDENDUM The patient's history was reviewed, and I interviewed and examined the patient with Dr. Peralta I agree with her summary, findings, and plan. documented in this encounter Plan of Treatment Upcoming Encounters Date Type Department Care Team (Late st Contact Info) Description 05/29/2024 2:00 PM EDT Hospital Encounter [place]patient [place] [address] Markel Borjas MD [facility] [address] [place] [address] 05/29/2024 2:00 PM EDT - 05/29/2024 2:43 PM EDT Surgery Outpatient [place] [address] Markel Borjas MD [facility] [place] [address] (OSC MSURG) BONE MARROW BIOPSY AND ASPIRATION; DIAGNOSTIC (WRVU 1.44) 06/23/2024 2:00 PM EST Office Visit [place]ematology [place] [phone] Markel Borjas MD [facility] DR [place] [address] 03/01/2025 4:15 PM EDT Office Visit Dermatology at [place] [address] [place] [address] Marek Bonilla MD [address] [address] Scheduled Procedures Name Priority Associated Diagnoses Date/Ti [...] PFT FEV1/FVC Pre-BD Z-Score 0 COMPAS PFT DWO36-47 Actual Pre-BD 2.41 % COMPAS PFT GRU27-93 Predicted 1.8 % COMPAS PFT GLP65-64 Pre-BD % of Predicted 134 % COMPAS PFT DIS46-94 Pre-BD Z-Score 0.81 COMPAS PFT DLCO Hb [...] tissue documented in this encounter Care Teams Engine Watchman Relationship Specialty Start Date End Date Magdalena Acosta MD [address] [place] [address] PCP - General Family Medicine 02/05/23 documented as of this encounter
--- OUTSIDE RECORDS SUMMARY | 2024-05-18 14:02 | XMS_ITS | Encounter Summary ---
Author Organization [facility] [place] [address] Care Team Providers Care Consumer Loan Processor Name Role Phone Magdalena Acosta MD Primary Care Provider [phone] Encounter Details Date Type Department Care Team [...] PM EDT Hospital Encounter [place]patient [place] [address] Markel Borjas MD [facility] [address] [place] [address] 05/29/2024 2:00 PM EDT - 05/29/2024 2:43 PM EDT Surgery [place] [address] Markel Borjas MD [facility] [address] [place] [address] (OSC MSURG) BONE MARROW BIOPSY AND ASPIRATION; DIAGNOSTIC (WRVU 1.44) 06/23/2024 2:00 PM EST Office Visit Hematology [place] [address] Markel Borjas MD [facility] [place] [address] 03/01/2025 4:15 PM EDT Office Visit Dermatology at [place] [address] [place] [phone] Marek Bonilla MD [address], [address] DERMATOLOGY [place], [place] [phone] Scheduled Procedures Name Priority Associated Diagnoses Date/Ti me (OSC MSURG) BONE MARROW BIOPSY AND ASPIRATION; DIAGNOSTIC (WRVU 1.44) Anemia, in pt with longstanding neutropenia 05/29/2024 2:00 PM EDT documented as of this encounter Visit Diagnoses Not on filedocumented in this encounter Care Teams Consumer Loan Processor Relationship Specialty Start Date End Date Magdalena Acosta MD [address] [place] [address] PCP - General Family Medicine 02/05/23 documented as of this encounter
--- OUTSIDE RECORDS SUMMARY | 2024-05-18 14:02 | XMS_ITS | Encounter Summary ---
[place] [address] Care Team Providers Care Boom Stick Worker Name Role Phone Magdalena Acosta MD Primary Care Provider [phone] Reason for Visit * Reason Onset Date Comments Pre Procedure Call 03/01/2024 DAPT hold for EGD and colo? Encounter Details Date Type Department Care Team (Late st Contact Info) Description 03/01/2024 Telephone Cardiology at [address] [phone] Cynthia Monsalve RN Pre Procedure Call (DAPT [...] safe. Jay Message above left with Yenifer (ell tutor), who would be leaving this note in patient's chart for providers to schedule patient. No further questions or needs at this time. This nurse stated, note will be placed regarding this call in our chart for patient. Kezia Whitney RN, BSN Ambulatory Cardiology Clinic, [facility] [phone] * Telephone Encounter - Cynthia Monsalve RN [...] PM EDT Hospital Encounter Outpatient [place] [phone] Markel Borjas MD [facility] [place]ATOLOGY [place] [address] 05/29/2024 2:00 PM EDT - 05/29/2024 2:43 PM EDT Surgery Outpatient [place] [phone] Markel Borjas MD [facility] HEMATOLOGY [place] [address] (OSC MSURG) BONE MARROW BIOPSY AND ASPIRATION; DIAGNOSTIC (WRVU 1.44) 06/23/2024 2:00 PM EST Office Visit Hematology [place] [phone] Markel Borjas MD [facility] DR HEMATOLOGY [place] [address] 03/01/2025 4:15 PM EDT Office Visit Dermatology at [place] [address] [place] [address] Marek Bonilla MD [address], [place] [address] Scheduled Procedures Name Priority Associated Diagnoses Date/Ti me (OSC MSURG) BONE MARROW BIOPSY AND ASPIRATION; DIAGNOSTIC (WRVU 1.44) Anemia, in pt with longstanding neutropenia 05/29/2024 2:00 PM EDT documented as of this encounter Visit Diagnoses Not on filedocumented in this encounter Care Teams Boom Stick Worker Relationship Specialty Start Date End Date Magdalena Acosta MD [address] [place] [address] PCP - General Family Medicine 02/05/23 documented as of this encounter
--- OUTSIDE RECORDS SUMMARY | 2024-05-18 14:02 | XMS_ITS | Encounter Summary ---
Author Organization [facility] [place] [address] Care Team Providers Care Sheet Rock Nailer Name Role Phone Magdalena Acosta MD Primary Care Provider [phone] Encounter Details Date Type Department Care Team [...] PM EDT Hospital Encounter Outpatient [place] [address] [facility] [address] HEMATOLOGY [place] [address] 05/29/2024 2:00 PM EDT - 05/29/2024 2:43 PM EDT Surgery Outpatient [place] [address] [facility] [address] HEMATOLOGY [place] [address] (OSC MSURG) BONE MARROW BIOPSY AND ASPIRATION; DIAGNOSTIC (WRVU 1.44) 06/23/2024 2:00 PM EST Office Visit Hematology [place] [phone] [facility] HEMATOLOGY [place] [address] 03/01/2025 4:15 PM EDT Office Visit Dermatology at [place] [address] [place] [phone] Marek Bonilla MD [address], [address] DERMATOLOGY [place], [place] [phone] Scheduled Procedures Name Priority Associated Diagnoses Date/Ti me (OSC MSURG) BONE MARROW BIOPSY AND ASPIRATION; DIAGNOSTIC (WRVU 1.44) Anemia, in pt with longstanding neutropenia 05/29/2024 2:00 PM EDT documented as of this encounter Visit Diagnoses Not on filedocumented in this encounter Care Teams Sheet Rock Nailer Relationship Specialty Start Date End Date Magdalena Acosta MD [address] [place] [address] PCP - General Family Medicine 02/05/23 documented as of this encounter
--- OUTSIDE RECORDS SUMMARY | 2024-05-18 14:02 | XMS_ITS | Encounter Summary ---
Author Organization [facility] Address [address] [place] [address] Care Team Providers Care Business Planner Name Role Phone Unavailable Primary Care Provider Unavailabl e Encounter Details Date Type Department Care Team (Late st Contact Info) Description 04/20/2005 Results Only [facility] [address] [place] [address] Ziggy Valiente MD [address] [place] [id number] Social History Tobacco Use Types Packs/Day Years [...] ? PURNIMA THACKER ? Accession #: ? [id number] ? : ? 1955 (Age: 49) ??F [...] correlation with endoscopic appearance is recommended. (Dr. Chino)/[facility] Document reviewed and electronically signed by: [...] is entirely submitted in one cassette. ??(Arabella Santos)/[facility] End of Report PAUL ARELLANO 04/20/2005 04/21/2005 15: 04 EDT Ziggy Valiente MD PATHOLOGY ORDERABLES PAUL ARELLANO [address] [place] [address] documented in this encounter Visit Diagnoses Not on filedocumented in this encounter
--- OUTSIDE RECORDS SUMMARY | 2024-05-18 14:02 | XMS_ITS | Encounter Summary ---
Author Organization [facility] [place] [address] Care Team Providers Care Pin Setter Name Role Phone Magdalena Acosta MD Primary Care Provider [phone] Reason for Referral * Diagnostic Test (Routine) - Closed Specialty Diagnoses / Procedures Referred By Contac t Referred To Contact Cardiology Diagnoses S/P TAVR (transcatheter aortic valve replacement) Procedures Echocardiogram Transthoracic Vinod Juárez PA [facility] [place] [address] [facility] [place] [address] Referral ID Status Reason Start Date Expiration Date V isits Requested Visits Authorized [id number] Closed Specialty Service Requested 05/22/2023 05/21/2024 1 1 Reason for Visit * Diagnostic Test (Routine) - Closed Specialty Diagnoses / Procedures Referred By Contac t Referred To Contact Cardiology Diagnoses S/P TAVR (transcatheter aortic valve replacement) Procedures Echocardiogram Transthoracic Vinod Juárez PA [facility] [place] [address] [facility] [place] [address] Referral ID Status Reason Start Date Expiration Date V isits Requested Visits Authorized [id number] Closed Specialty Service Requested 05/22/2023 05/21/2024 1 1 Encounter Details Date Type Department Care Team (Latest Contact Info) Description 07/08/2023 10:19 AM EST - 07/08/2023 11:59 PM EST Hospital Encounter Non-In[place] [address] Alirio Esparza MD S/P TAVR (transcatheter aortic [...] PM EDT Hospital Encounter Outpatient [place] [address] Markel Borjas MD [facility] [address] [place] [address] 05/29/2024 2:00 PM EDT - 05/29/2024 2:43 PM EDT Surgery [place]patient [place] [address] Markel Borjas MD [facility] [address] [place] [address] ([facility] MS[facility]) BONE MARROW BIOPSY AND ASPIRATION; DIAGNOSTIC (WRVU 1.44) 06/23/2024 2:00 PM EST Office Visit Hematology [place] [address] Markel Borjas MD [facility] [place] [address] 03/01/2025 4:15 PM EDT Office Visit Dermatology at [address] [phone] Marek Bonilla MD [address], [place] [address] Scheduled Procedures Name Priority Associated Diagnoses Date/Ti [...] EST Narrative 07/08/2023 12:26 PM EST 1 [place] [address] ? Echocardiogram Report Name: ONESIMO THACKER ?Study Date: 07/08/2023 10:31 AMBP: 118/60 mmHg ? Patient Location: 4A : 1955 ? Height: 155 cm ? Account: [id number] Age: 67 yrs ? Weight: 74 kg Gender: Female ?BSA: 1.7 m2 Ordering Physician: ALIRIO ESPARZA Referring Physician: VINOD JUÁREZ Performed By: Felicia Norris RDCS Reason For Study: S/P TAVR Exam Location: [facility]. Interpretation Summary Left ventricular systolic function is [...] no significant change (post-procedure). Procedure Limited - 19780. Doppler - 00877. Color Doppler - 54821. Satisfactory quality. This study is limited because [...] Note Lee Kincaid MD - 07/08/2023 1 [place] [id number] Echocardiogram Report Name: ONESIMO THACKER Study Date: 0:31 AMBP: 118/60 mmHg Patient Location: : 1955 Height: 155 cm Account: [id number] Age: 67 yrs Weight: 74 kg Gender: Female BSA: 1.7 m2 Ordering Physician: ALIRIO ESPARZA Referring Physician: VINOD JUÁREZ Performed By: Felicia Norris RDCS Reason For Study: S/P TAVR Exam Location: [facility]. Interpretation Summary Left ventricular systolic function is [...] is nosignificant change (post-procedure). Procedure Limited - 22699. Doppler - 46885. Color Doppler - 80344. Satisfactoryquality. This study is limited because of [...] replacement) documented in this encounter Care Teams Pin Setter Relationship Specialty Start Date End Date Magdalena Acosta MD [address] [place] [address] PCP - General Family Medicine 02/05/23 documented as of this encounter
--- OUTSIDE RECORDS SUMMARY | 2024-05-18 14:02 | XMS_ITS | Encounter Summary ---
Author Organization [facility] [place] [address] Care Team Providers Care Inspector Mechanical Name Role Phone Magdalena Acosta MD Primary Care Provider [phone] Encounter Details Date Type Department Care Team (Latest Contact Info) Description 05/12/2024 9:00 AM EDT Laboratory Appointment Lab at [facility] [place]ematology Oncology [address] [place] [address] S/P TAVR (transcatheter aortic valve replacement); Chronic [...] PM EDT Hospital Encounter Outpatient [place] [address] Markel Borjas MD [facility] [address] [place] [address] 05/29/2024 2:00 PM EDT - 05/29/2024 2:43 PM EDT Surgery Outpatient [place] [address] Markel Borjas MD [facility] [address] [place] [address] (OSC MSURG) BONE MARROW BIOPSY AND ASPIRATION; DIAGNOSTIC (WRVU 1.44) 06/23/2024 2:00 PM EST Office Visit Hematology [place] [phone] Markel Borjas MD [facility] [address] [place] [address] 03/01/2025 4:15 PM EDT Office Visit Dermatology at [place] [address] [place] [address] Marek Bonilla MD [address], [place] [address] Scheduled Procedures Name Priority Associated [...] - 2.50 % 05/12/2024 9:[address] [facility] Retic Abs # 0.0397 0.0200 - 0.1100 x10(6)/mcL 05/12/2024 9:[address] [facility] Immature Retic% 8.1 0.5 - 13.8 % 05/12/2024 9:[address] [facility] Reticulated Hgb 35.2 29.8 - 39.4 pg 05/12/2024 9:[address] [facility] Blood VENOUS BLOOD SPECIMEN / Unknown Venipuncture / Unknown 05/12/2024 8:56 AM EDT 05/12/2024 8:56 AM EDT Tovahermelindo Russell SENIOR DIRECTOR MARKETING HEMATOLOGY ORDERABL ES [facility] [place] [address] * (ABNORMAL) Comprehensive metabolic panel Non-fasting (05/12/2024 8:56 AM EDT) Glucose 86 65 - 199 mg/dL 05/12/2024 11:36 AM [facility] Comment:Glucose Concentratio n >=200 mg/dL plus symptoms is consistent with Diabetes Mellitus. Blood Urea Nitrogen 20(H) 8 - 18 mg/dL 05/12/2024 11:36 AM [facility] Creatinine 0.88 0.70 - 1.20 mg/dL 05/12/2024 11:36 AM [facility] Sodium 145 135 - 145 mMol/L 05/12/2024 11:36 AM [facility] Potassium 4.6 3.5 - 5.0 mMol/L 05/12/2024 11:36 AM [facility] Chloride 109(H) 98 - 107 mMol/L 05/12/2024 11:36 AM [facility] Carbon Dioxide 21(L) 22 - 31 mMol/L 05/12/2024 11:36 AM [facility] Anion Gap 15 5 - 15 mMol/L 05/12/2024 11:36 AM [facility] Comment:Not Calculated. Calcium 9.9 8.5 - 10.5 mg/dL 05/12/2024 11:36 AM [facility] Protein, Total 7.3 6.1 - 8.0 g/dL 05/12/2024 11:36 AM [facility] Albumin 4.5 3.2 - 5.2 g/dL 05/12/2024 11:36 AM [facility] Aspartate Aminotransferase 24 <=30 unit/L 05/12/2024 11:36 AM [facility] Alanine Aminotransferase 14 0 - 30 unit/L 05/12/2024 11:36 AM [facility] Alkaline Phosphatase 98 35 - 105 unit/L 05/12/2024 11:36 AM [facility] Bilirubin, Total 0.2 <=1.3 mg/dL 05/12/2024 11:36 AM [facility] Est Glomerular Filtration Rate - Female 72 mL/min/1. 73 m?? 05/12/2024 11:36 AM [facility] Comment: This patient's estimated [...] Foundation Fasting Status No 05/12/2024 11:36 AM [facility] Blood VENOUS BLOOD SPECIMEN / Unknown Venipuncture / Unknown 05/12/2024 8:56 AM EDT 05/12/2024 8:56 AM EDT Tova Russell SENIOR DIRECTOR MARKETING CHEMISTRY ORDERABLE S [facility] [place] [address] * (ABNORMAL) CBC (with Diff) (05/12/2024 8:56 AM EDT) White Blood Cell 3.47(L) 4.00 - 9.50 x10(3)/mc L 05/12/2024 9:[address] [facility] Red Blood Cell 3.31(L) 4.00 - 5.21 x10(6)/mc L 05/12/2024 9:[address] [facility] Hemoglobin 11.1(L) 11.7 - 15.5 g/dL 05/12/2024 9:[address] [facility] Hematocrit 33.2(L) 35.7 - 45.8 % 05/12/2024 9:[address] [facility] Mean Cell Volume 100.3(H) 82.6 - 94.4 fL 05/12/2024 9:[address] [facility] Mean Cell Hemoglobin 33.5(H) 27.1 - 32.0 pg 05/12/2024 9:[address] [facility] Mean Cell Hemoglobin Concentration 33.4 31.7 - 35.0 g/dL 05/12/2024 9:[address] [facility] Platelet 142(L) 145 - 357 x10(3)/mc L 05/12/2024 9:[address] [facility] Mean Platelet Volume 8.7 7.6 - 12.9 fL 05/12/2024 9:[address] [facility] RDW Standard Deviation 44.4 37.0 - 46.0 fL 05/12/2024 9:[address] [facility] RDW coefficient of variation 12.0 11.5 - 14.1 % 05/12/2024 9:32 AM [facility] NRBC% auto 0.0 % 05/12/2024 9:32 AM [facility] NRBC Absolute <0.01 <0.01 x10(3)/mc L 05/12/2024 9:32 AM [facility] Neutrophil % 69.7 % 05/12/2024 9:32 AM [facility] Neutrophil Absolute (ANC) - Automated 2.42 1.70 - 6.10 x10(3)/mc L 05/12/2024 9:32 AM [facility] Lymph % 16.7 % 05/12/2024 9:32 AM [facility] Lymph Absolute 0.58(L) 0.90 - 3.20 x10(3)/mc L 05/12/2024 9:32 AM [facility] Monocyte % 12.1 % 05/12/2024 9:32 AM [facility] Monocyte Absolute 0.42 0.30 - 0.90 x10(3)/mc L 05/12/2024 9:32 AM [facility] Eos % 0.6 % 05/12/2024 9:32 AM [facility] Eos Absolute <0.04 0.00 - 0.40 x10(3)/mc L 05/12/2024 9:32 AM [facility] Basophil % 0.6 % 05/12/2024 9:32 AM [facility] Baso Absolute <0.04 0.00 - 0.10 x10(3)/mc L 05/12/2024 9:32 AM [facility] Immature Gran % 0.3 % 9:32 AM [facility] Immature Gran Absolute <0.04 0.00 - 0.04 x10(3)/mc L 05/12/2024 9:32 AM [facility] Blood VENOUS BLOOD SPECIMEN / Unknown Venipuncture / Unknown 05/12/2024 8:56 AM EDT 05/12/2024 8:56 AM EDT Tova Mejias Drew SENIOR DIRECTOR MARKETING HEMATOLOGY ORDERABL ES Performing Organization Address City/State/[facility] Co de Phone Number [facility] [place] [address] documented in this encounter Visit Diagnoses Diagnosis S/P TAVR (transcatheter aortic valve replacement) Chronic idiopathic neutropenia Other neutropenia documented in this encounter Care Teams Inspector Mechanical Relationship Specialty Start Date End Date Magdalena Acosta MD [address] [place] [address] PCP - General Family Medicine 02/05/23 documented as of this encounter
--- OUTSIDE RECORDS SUMMARY | 2024-05-18 14:02 | XMS_ITS | Encounter Summary ---
Author Organization [facility] [address] Care Team Providers Care Bass Guitar Teacher Name Role Phone Magdalena Acosta MD Primary Care Provider Encounter Details Date Type Department Care Team (Late st Contact Info) Description 12/02/2023 11:15 AM EDT Office [place] [address] Magdalena Peralta MD [facility] [place] [address] Mixed connective tissue disease Social History Tobacco [...] 1:5120 speckled; VIC negative; Myositis panel with ORDER BUILDER ab 149.1 (positive); Anti U1RNP IgG 119; [...] list of questions that she sent via [facility] ahead of her visit, which we [...] exposure. She has an appointment with her Dynamotor Repairer scheduled in January. (Dr Bonilla in [place]) ROS (positives in bold): Gen: no fevers, [...] but I encouraged her to contact her Dynamotor Repairer to see if she could have her [...] Dr. Tanisha Peralta MD Rheumatology Fellow Pager: [phone] * Federico Yee MD - 12/02/2023 11:15 [...] PM EDT Hospital Encounter [place] [address] Markle Borjas MD [facility] [address] [place] [address] 05/29/2024 2:00 PM EDT - 05/29/2024 2:43 PM EDT Surgery [place] [address] Markel Borjas MD [facility] [address] [place] [address] ([facility]C MSURG) BONE MARROW BIOPSY AND ASPIRATION; DIAGNOSTIC (WRVU 1.44) 06/23/2024 2:00 PM EST Office Visit Hematology [place] [address] Markel Borjas MD [facility] [place] [address] 03/01/2025 4:15 PM EDT Office Visit Dermatology at [address] [phone] Marek Bonilla MD [address] [place] [address] Scheduled Orders Name Type Priority Associated Diagnoses [...] tissue documented in this encounter Care Teams Bass Guitar Teacher Relationship Specialty Start Date End Date Magdalena Acosta MD [address] [place] [address] PCP - General Family Medicine 02/05/23 documented as of this encounter
--- OUTSIDE RECORDS SUMMARY | 2024-05-18 14:02 | XMS_ITS | Encounter Summary ---
Author Organization [facility] [place] [address] Care Team Providers Care Stockbroking Dealer Name Role Phone Magdalena Acosta MD Primary Care Provider [phone] Encounter Details Date Type Department Care Team [...] PM EDT Hospital Encounter [place] [address] Markel Borjas MD [facility] DR HEMATOLOGY [place] [address] 05/29/2024 2:00 PM EDT - 05/29/2024 2:43 PM EDT Surgery [place] [address] Markel Borjas MD [facility] DR HEMATOLOGY [place] [address] (OSC MSURG) BONE MARROW BIOPSY AND ASPIRATION; DIAGNOSTIC (WRVU 1.44) 06/23/2024 2:00 PM EST Office Visit Hematology [place] [phone] Markel Borjas MD [facility] HEMATOLOGY [place] [address] 03/01/2025 4:15 PM EDT Office Visit Dermatology at [place] [address] [place] [phone] Marek Bonilla MD [address], [place] [address] DERMATOLOGY [place], [place] [phone] Scheduled Procedures Name Priority Associated Diagnoses Date/Ti me (OSC MSURG) BONE MARROW BIOPSY AND ASPIRATION; DIAGNOSTIC (WRVU 1.44) Anemia, in pt with longstanding neutropenia 05/29/2024 2:00 PM EDT documented as of this encounter Visit Diagnoses Not on filedocumented in this encounter Care Teams Stockbroking Dealer Relationship Specialty Start Date End Date Magdalena Acosta MD [address] [place] [address] PCP - General Family Medicine 02/05/23 documented as of this encounter
--- OUTSIDE RECORDS SUMMARY | 2024-05-18 14:02 | XMS_ITS | Encounter Summary ---
Author Organization [facility] [place] [address] Care Team Providers Care Sales Agent Pest Control Service Name Role Phone Magadlena Acosta MD Primary Care Provider [phone] Encounter Details Date Type Department Care Team (Late st Contact Info) Description 07/08/2023 10:15 AM EST Office Visit Cardiology at [address] [phone] Severe aortic stenosis Social History Tobacco Use [...] PM EDT Hospital Encounter [place] [phone] Markel Borjas MD [facility] DR HEMATOLOGY [place] [address] 05/29/2024 2:00 PM EDT - 05/29/2024 2:43 PM EDT Surgery [place] [address] Markel Borjas MD [facility] DR HEMATOLOGY [place] [address] (OSC MSURG) BONE MARROW BIOPSY AND ASPIRATION; DIAGNOSTIC (WRVU 1.44) 06/23/2024 2:00 PM EST Office Visit Hematology [place] [address] Markel Borjas MD [facility] DR HEMATOLOGY [place] [address] 03/01/2025 4:15 PM EDT Office Visit Dermatology at [place] [address] [place] [phone] Marek Bonilla MD [address], [place] [address] Scheduled Procedures Name Priority Associated Diagnoses Date/Ti [...] (Bezet) 449 ms MUSE SYSTEM Calculated P Kent 66 degrees MUSE SYSTEM Calculated R Kent 60 degrees MUSE SYSTEM Calculated T [place] 53 degrees MUSE SYSTEM INTERPRETATION Normal sinus rhythm Minimal voltage criteria for LVH, may be normal variant ( Sokolow-Orozco ) ST & T wave abnormality, consider lateral ischemia ??vs. repolarization abnormality from LVH Abnormal ECG When compared with ECG of 13-MAY-2023 09:22, Premature ventricular complexes are no longer Present Minimal criteria for Septal infarct are no longer Present Confirmed by Maxx Best ([id number]) on 07/09/2023 10:07:22 AM MUSE SYSTEM 07/08/2023 10:2 7 AM EST 07/09/2023 10:07 AM EST Brody Dale Eusebio OSBORN ECG ORDERABLES MUSE SYSTEM documented in this encounter Visit Diagnoses Diagnosis Severe aortic stenosis Aortic valve disorders documented in this encounter Care Teams Sales Agent Pest Control Service Relationship Specialty Start Date End Date Magdalena Acosta MD [address] [place] [address] PCP - General Family Medicine 02/05/23 documented as of this encounter
--- OUTSIDE RECORDS SUMMARY | 2024-05-18 14:02 | XMS_ITS | Encounter Summary ---
[place] [address] Care Team Providers Care Water Taxi Captain Name Role Phone Magdalena Acosta MD Primary Care Provider [phone] Encounter Details Date Type Department Care Team (Latest Contact Info) Description 10/05/2023 10:52 AM EST - 10/05/2023 11:59 PM [facility] Hospital [place] [address] Mixed connective tissue disease Discharge Disposition: Home Social History Tobacco Use Types Packs/Day Years Used Date Smoking Tobacco: Never Smokeless Tobacco: Never Alcohol Use Standard Drinks/Week Comments No 0 (1 standard drink = 0.6 oz pur e alcohol) none [facility] Inpatient Questions Answer Date Recorded [...] Verio test strips Strip USE DAILY 01/03/2022 SustainationTouch Delica Plus Lancet 33 gauge Misc USE [...] Hospital Encounter [place]patient [place] [phone] Markel Borjas MD [facility] DR [place] [address] 05/29/2024 2:00 PM EDT - 05/29/2024 2:43 PM EDT Surgery [place]patient [place] [phone] Markel Borjas MD [facility] DR [place] [address] (OSC MSURG) BONE MARROW BIOPSY AND ASPIRATION; DIAGNOSTIC (WRVU 1.44) 06/23/2024 2:00 PM EST Office Visit [place]ematology [place] [phone] Markel Borjas MD [facility] DR [place] [address] 03/01/2025 4:15 PM EDT Office Visit Dermatology at [address] [place] [phone] Marek Bonilla MD [address], [place] A DERMATOLOGY [place], [place] [phone] Scheduled Procedures Name Priority Associated Diagnoses Date/Ti [...] PFT FEV1/FVC Pre-BD Z-Score 0 COMPAS PFT DZJ04-61 Actual Pre-BD 2.41 % COMPAS PFT DWZ68-76 Predicted 1.8 % COMPAS PFT JAI48-54 Pre-BD % of Predicted 134 % COMPAS PFT XRC04-86 Pre-BD Z-Score 0.81 COMPAS PFT DLCO Hb [...] tissue documented in this encounter Care Teams Water Taxi Captain Relationship Specialty Start Date End Date Magdalena Acosta MD [address] [place] [address] PCP - General Family Medicine 02/05/23 documented as of this encounter
--- OUTSIDE RECORDS SUMMARY | 2024-05-18 14:02 | XMS_ITS | Encounter Summary ---
Author Organization [facility] [place] [address] Care Team Providers Care Date Pitter Name Role Phone Magdalena Acosta MD Primary Care Provider [phone] Reason for Visit * Reason Comments Follow-up * Consultation (Routine) - Closed Specialty Diagnoses / Procedures Referred By Contac t Referred To Contact Hematology and Oncology Diagnoses Anemia, unspecified type Consuelo Guerrero, DO [address] [place] [address] [place] [address] [facility] Hem Onc [address] [place] [address] Referral ID Status Reason Start Date Expiration Date V isits Requested Visits Authorized [id number] Closed Consult, Test & Treat 04/11/2024 04/11/2025 1 1 Encounter Details Date Type Department Care Team (Late st Contact Info) Description 05/12/2024 10:00 AM EDT Office Visit Hematology [place] [address] Markel Borjas MD [facility] DR HEMATOLOGY [place] [address] Chronic idiopathic neutropenia Social History [...] 05/12/2024 10:00 AM EDT Hematology Outpatient Clinic [facility] Hematology Outpatient Consult Note CC: [id number] [...] TOUCH PREP, CLOT SECTION, CORE BIOPSY); [OSR# [id number], COLLECTED 06/23/2016, 19 SLIDES]: 1. 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 pantoprazole EC (Protonix) 40 [...] intact. Extremities: No edema. Labs: Hgb= 11.7 Nena=308 ANC= 2.5 Assessment: 60 year-old woman found [...] PM EDT Hospital Encounter Outpatient Surgery [place] [address] Markel Borjas MD [facility] DR HEMATOLOGY [place] [address] 05/29/2024 2:00 PM EDT - 05/29/2024 2:43 PM EDT Surgery Outpatient [place] [address] Makrel Borjas MD [facility] DR HEMATOLOGY [place] [address] (OSC MSURG) BONE MARROW BIOPSY AND ASPIRATION; DIAGNOSTIC (WRVU 1.44) 06/23/2024 2:00 PM EST Office Visit Hematology [place] [phone] Markel Borjas MD [facility] DR HEMATOLOGY [place] [address] 03/01/2025 4:15 PM EDT Office Visit Dermatology at [place] [address] [place] [phone] Marek Bonilla MD [address], [place] [address] Scheduled Orders Name Type Priority [...] - 2.50 % 05/12/2024 9:32 AM EDT [facility] Retic Abs # 0.0397 0.0200 - 0.1100 x10(6)/mcL 05/12/2024 9:32 AM EDT [facility] Immature Retic% 8.1 0.5 - 13.8 % 05/12/2024 9:32 AM EDT [facility] Reticulated Hgb 35.2 29.8 - 39.4 pg 05/12/2024 9:32 AM T [facility] Blood VENOUS BLOOD SPECIMEN / Unknown Venipuncture / Unknown 05/12/2024 8:56 AM EDT 05/12/2024 8:56 AM EDT Tova Russell RAW SHELLFISH PREPARER HEMATOLOGY ORDERABL ES [facility] [place] [address] * (ABNORMAL) Comprehensive metabolic panel Non-fasting (05/12/2024 8:56 AM EDT) Glucose 86 65 - 199 mg/dL 05/12/2024 11:36 AM [facility] Comment:Glucose Concentratio n >=200 mg/dL [...] 8.5 - 10.5 mg/dL 05/12/2024 11:36 AM [facility] Protein, Total 7.3 6.1 - [...] Fasting Status No 05/12/2024 11:36 AM EDT [facility] Blood VENOUS BLOOD SPECIMEN / Unknown Venipuncture / Unknown 05/12/2024 8:56 AM EDT 05/12/2024 8:56 AM EDT Tova Russell RAW SHELLFISH PREPARER CHEMISTRY ORDERABLE S [facility] [address] * (ABNORMAL) CBC (with Diff) (05/12/2024 8:56 AM EDT) White Blood Cell 3.47(L) 4.00 - 9.50 x10(3)/mc L 05/12/2024 9:32 AM [facility] Red Blood Cell 3.31(L) 4.00 - 5.21 x10(6)/mc L 05/12/2024 9:32 AM [facility] Hemoglobin 11.1(L) 11.7 - 15.5 g/dL [...] 6.10 x10(3)/mc L 05/12/2024 9:32 AM EDT [facility] Lymph % 16.7 % 05/12/2024 9:32 AM EDT [facility] Lymph Absolute 0.58(L) 0.90 - 3.20 x10(3)/mc L 05/12/2024 9:32 AM EDT [facility] Monocyte % 12.1 % 05/12/2024 9:32 AM EDT [facility] Monocyte Absolute 0.42 0.30 - 0.90 x10(3)/mc L 05/12/2024 9:32 AM EDT [facility] Eos % 0.6 % 05/12/2024 9:32 AM EDT [facility] Eos Absolute <0.04 0.00 - 0.40 x10(3)/mc L 05/12/2024 9:32 AM EDT [facility] Basophil % 0.6 % 05/12/2024 9:32 AM EDT [facility] Baso Absolute <0.04 0.00 - 0.10 x10(3)/mc L 05/12/2024 9:32 AM EDT [facility] Immature Gran % 0.3 % 9:32 AM EDT [facility] Immature Gran Absolute <0.04 0.00 - 0.04 x10(3)/mc L 05/12/2024 9:32 AM EDT [facility] Blood VENOUS BLOOD SPECIMEN / Unknown Venipuncture / Unknown 05/12/2024 8:56 AM EDT 05/12/2024 8:56 AM EDT Tova Russell RAW SHELLFISH PREPARER HEMATOLOGY ORDERABL ES [facility] [place] [address] documented in this encounter Visit Diagnoses Diagnosis Chronic idiopathic neutropenia Other neutropenia documented in this encounter Care Teams Date Pitter Relationship Specialty Start Date End Date Magdalena Acosta MD [address] [place] [address] PCP - General Family Medicine 02/05/23 documented as of this encounter
--- OUTSIDE RECORDS SUMMARY | 2024-05-18 14:02 | XMS_ITS | Encounter Summary ---
Author Organization [facility] Address [address] [place] [address] Care Team Providers Care Carbon Setter Name Role Phone Unavailable Primary Care Provider Unavailabl e Encounter Details Date Type Department Care Team (Late st Contact Info) Description 07/08/2010 Results Only [facility] Non-Invasive Cardiology - [facility] [address] [place] [address] Ashley Chavez, WILLIAM [address] [place] [address] Social History Tobacco Use Types Packs/Day Years [...] ? 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 Accession #: ? [id number] ? : ? 1955 (Age: 54) ??F [...] Ashley THOMAS PATHOLOGY ORDERABLES PAUL ARELLANO [address] [place] [address] documented in this encounter Visit Diagnoses Not on filedocumented in this encounter
--- OUTSIDE RECORDS SUMMARY | 2024-05-18 14:02 | XMS_ITS | Encounter Summary ---
Author Organization [facility] Address [facility] [place] [address] Care Team Providers Care Senior Software Development Engineer Name Role Phone Magdalena Acosta MD Primary Care Provider [phone] Encounter Details Date Type Department Care Team (Latest Contact Info) Description 07/08/2023 12:35 PM EST Laboratory Appointment Lab [address] [place] [address] S/P TAVR (transcatheter aortic valve [...] PM EDT Hospital Encounter [place] [phone] Markel Borjas MD [facility] [place] [address] 05/29/2024 2:00 PM EDT - 05/29/2024 2:43 PM EDT Surgery [place] [address] Markel Borjas MD [facility] [place] [address] (OSC MSURG) BONE MARROW BIOPSY AND ASPIRATION; DIAGNOSTIC (WRVU 1.44) 06/23/2024 2:00 PM EST Office Visit [place]ematology [place] [address] Markel Borjas MD [facility] [place] [address] 03/01/2025 4:15 PM EDT Office Visit Dermatology at [place] [address] [place] [address] Marek Bonilla MD [address] [place] [address] Scheduled Procedures Name Priority Associated Diagnoses Date/Ti [...] 11:56 AM EST) Neutrophil % 73.2 % [facility] Neutrophil Absolute 3.40 1.70 - 6.10 x10(3)/mc L [facility] Lymph % 16.1 % [facility] Lymphocytes Abs 0.8(L) 0.9 - 3.2 x10(3)/mc L [facility] Monocyte % 9.7 % [facility] Monocyte Abs 0.4 0.3 - 0.9 x10(3)/mc L [facility] Eos % 0.4 % [facility] Eosinophils Abs 0.0 0.0 - 0.4 x10(3)/ L [facility] Basophil % 0.4 % [facility] Baso Absolute 0.0 0.0 - 0.1 x10(3)/ L [facility] Immature Gran % 0.20 % [facility] Comment: Immature granulocytes(IG's)percentage and absolute count will include metamyelocytes, myelocytes, and promyelocytes. Blood smears from CBCs yielding IG's will be scanned manually for concordance. If this scan disagrees with the automated IG or if promyelocytes are noted, a manual differential will be performed. Immature Gran Absolute 0.01 0.00 - 0.04 x10(3)/ L [facility] Blood 07/08/2023 11:5 6 AM EST 07/08/2023 12:02 PM EST Narrative Resulting Agency Comment Spec In Lab Minh TOBAR HEMATOLOGY ORDERABLE S [facility] [place] [address] * (ABNORMAL) Hemogram (07/08/2023 11:56 AM EST) White Blood Cell 4.6 4.0 - 9.5 x10(3)/mc L [facility] Red Blood Cell 3.34(L) 4.00 - 5.21 x10(6)/ L [facility] Hemoglobin 11.0(L) 11.7 - 15.5 g/dL [facility] Hematocrit 33.2(L) 35.7 - 45.8 % [facility] Mean Cell Volume 99.4(H) 82.6 - 94.4 fL [facility] Mean Cell Hemoglobin 32.9(H) 27.1 - 32.0 pg [facility] Mean Cell Hemoglobin Concentration 33.1 31.7 - 35.0 g/dL [facility] Platelet 166 145 - 357 x10(3)/mc L [facility] RDW Standard Deviation 47.1(H) 37.0 - 46.0 fL [facility] RDW coefficient of variation 13.0 11.5 - 14.1 % [facility] Mean Platelet Volume 9.0 7.6 - 12.9 fL [facility] NRBC% auto 0.0 % [facility] NRBC Absolute 0.000 0.000 - 0.000 x10(3)/ L [facility] Blood 07/08/2023 11:5 6 AM EST 07/08/2023 12:02 PM EST Narrative Resulting Agency Comment Spec In Lab Minh TOBAR HEMATOLOGY ORDERABLE S Performing Organization Address City/State/[facility] Co de Phone Number [facility] [place] [place] [address] * (ABNORMAL) Comprehensive metabolic panel (non-fasting) (07/08/2023 11:56 AM EST) Glucose 93 65 - 199 mg/dL [facility] Comment:Diabetes: >=200 mg/d L plus symptoms Blood Urea Nitrogen 19(H) 8 - 18 mg/dL [facility] Creatinine 0.81 0.70 - 1.20 mg/dL [facility] Sodium 142 135 - 145 mmol/L [facility] Potassium 3.8 3.5 - 5.0 mmol/L [facility] Comment: Please note: ??Patients with WBC >100,000 may have falsely elevated Potassium levels. ??For accurate Potassium quantification in these patients send serum separator tube (gold top) for subsequent determinations. ??Contact the Clinical Chemistry Laboratory if there are any questions. Chloride 104 98 - 107 mmol/L [facility] Carbon Dioxide 26 22 - 31 mmol/L [facility] Anion Gap 12 5 - 15 mmol/L [facility] Calcium 10.2 8.5 - 10.5 mg/dL [facility] Protein, Total 7.4 6.1 - 8.0 g/dL [facility] Albumin 4.1 3.2 - 5.2 g/dL [facility] Aspartate Aminotransferase 24 0 - 30 unit/L [facility] Alanine Aminotransferase 12 0 - 30 unit/L [facility] Alkaline Phosphatase 93 35 - 105 unit/L [facility] Bilirubin, Total 0.3 0.2 - 1.3 mg/dL [facility] Est Glomerular Filtration Rate 80 >=60 mL/min/1. 73 m?? [facility] Comment: This patient's estimated GFR [...] [place] Co de Phone Number [facility] [place] [address] documented in this encounter Visit Diagnoses Diagnosis S/P TAVR (transcatheter aortic valve replacement) Severe aortic stenosis Aortic valve disorders documented in this encounter Care Teams Senior Software Development Engineer Relationship Specialty Start Date End Date Magdalena Acosta MD [address] [place] [address] PCP - General Family Medicine 02/05/23 documented as of this encounter
--- OUTSIDE RECORDS SUMMARY | 2024-05-18 14:02 | XMS_ITS | Encounter Summary ---
[place] [address] Care Team Providers Care Rug Repairer Name Role Phone Magdalena Acosta MD Primary Care Provider [phone] Reason for Visit * Reason Comments Annual Exam Encounter Details Date Type Department Care Team (Late st Contact Info) Description 02/22/2024 4:15 PM EDT Office Visit Dermatology at [address] [phone] Marek Bonilla MD [address] [facility] [place], [place] [phone] Seborrheic keratosis; Rosacea; Nevus Social History Tobacco [...] cutaneous and ocular 3. Previously told by panel wirer that she had corneal tears from her [...] PM EDT Hospital Encounter Outpatient [place] [address] Markel Borjas MD [facility] [address] [place] [address] 05/29/2024 2:00 PM EDT - 05/29/2024 2:43 PM EDT Surgery Outpatient [place] [address] Markel Borjas MD [facility] [address] [place] [address] (OSC MSURG) BONE MARROW BIOPSY AND ASPIRATION; DIAGNOSTIC (WRVU 1.44) 06/23/2024 2:00 PM EST Office Visit [place]ology [place] [address] Markel Borjas MD [facility] [address] [place] [address] 03/01/2025 4:15 PM EDT Office Visit Dermatology at [place] [address] [place] [phone] Marek Bonilla MD [address] [place] [address] Scheduled Procedures Name Priority Associated Diagnoses Date/Ti [...] Date Magdalena Acosta MD [address] [place] [address] PCP - General Family Medicine 02/05/23 documented as of this encounter
[2024-05-18 14:03] VITALS: BP 135/66; PULSE 80; O2SAT 98
--- OUTSIDE RECORDS SUMMARY | 2024-05-18 14:04 | XMS_ITS | Encounter Summary ---
[place] [address] Care Team Providers Care Asbestos Handler Name Role Phone Magdalena Acosta MD Primary Care Provider [phone] Reason for Visit * Auth/Cert (Routine) Specialty Diagnoses / Procedures Referred By Contac t Referred To Contact Diagnoses Symptomatic severe aortic stenosis with low ejection fraction NSTEMI, CHF Haris Chua MD [facility] [place] [address] [facility] Referral ID Status Reason Start Date Expiration Date Visits Re quested Visits Authorized [id number] 1 1 Encounter Details Date Type Department Care Team (Late st Contact Info) Description 05/12/2023 7:35 AM EDT Anesthesia [place] [address] Lynda Mcgowan MD [facility] [place] [address] Alie Park MD [facility] [place] [address] Anesthesia Record Procedure Summary Procedure Name Responsible [...] cephalic vein (lateral side of arm), left; [id number]-[id number] catheter system; Anatomical Landmarks; US Not Used; [...] RN LDA Cath/EP Sheath 05/12/23; 0733; 14 South African (Fr); Right; Femoral; Arterial 05/12/23 0733 by Guerda Bender, RN 05/12/23 0830 by Guerda Bender RN LDA Cath/EP Sheath 05/12/23; 0734; 6 South African (Fr); Right; Femoral; Venous 05/12/23 0734 by Guerda Bender RN 05/12/23 0817 by Guerda Bender RN LDA Cath/EP Sheath 05/12/23; 0734; 7 South African (Fr); Left; Femoral; Arterial 05/12/23 0734 by Guerda Bender, RN 05/12/23 0837 by Guerda Bender RN LDA Cath/EP Sheath 05/12/23; 0734; 6 South African (Fr); Left; Femoral; Venous 05/12/23 0734 by [...] Procedure Summary Date: 05/12/23 Room / Location: [facility] OF [facility] / [facility] Anesthesia [...] All Anesthesia Providers: Anesthesiologist: Lynda Mcgowan MD Radiator Cleaner: Nico Graham MD Vitals Value Taken Time [...] 3 general, with a(n) intravenous induction Add-on [id number] TAVR. In cardiogenic shock. Has arterial line, [...] PM EDT Hospital Encounter [place] [place] [address] Markel Borjas MD [facility] [address] [place] [address] 05/29/2024 2:00 PM EDT - 05/29/2024 2:43 PM EDT Surgery Outpatient [place] [phone] Markel Borjas MD [facility] DR [place] [address] ([facility] MSURG) BONE MARROW BIOPSY AND ASPIRATION; DIAGNOSTIC (WRVU 1.44) 06/23/2024 2:00 PM EST Office Visit [place] [address] Markel Borjas MD [facility] DR [place] [address] 03/01/2025 4:15 PM EDT Office Visit Dermatology at [place] [address] [place] [phone] Marek Bonilla MD [address] [facility], [place] [address] Scheduled Procedures Name Priority Associated Diagnoses Date/Ti [...] mL/hr documented in this encounter Care Teams Asbestos Handler Relationship Specialty Start Date End Date Magdalena Acosta MD [address] [place] [address] PCP - General Family Medicine 02/05/23 documented as of this encounter
--- OUTSIDE RECORDS SUMMARY | 2024-05-18 14:04 | XMS_ITS | Encounter Summary ---
Author Organization [facility] [place] [address] Care Team Providers Care Family Health Nurse Practitioner Name Role Phone Magdalena Acosta MD Primary Care Provider [phone] Encounter Details Date Type Department Care Team [...] PM EDT Hospital Encounter [place]patient [place] [address] Markel Borjas MD [facility] [address] [place] [address] 05/29/2024 2:00 PM EDT - 05/29/2024 2:43 PM EDT Surgery [place] [phone] Markel Borjas MD [facility] [address] [place] [address] ([facility] MSURG) BONE MARROW BIOPSY AND ASPIRATION; DIAGNOSTIC (WRVU 1.44) 06/23/2024 2:00 PM EST Office Visit Hematology [place] [phone] Markel Borjas MD [facility] [place] [address] 03/01/2025 4:15 PM EDT Office Visit Dermatology at [place] [address] [place] [phone] Marek Bonilla MD [address] [place]MATOLOGY [place], [place] [id number] Scheduled Procedures Name Priority Associated Diagnoses Date/Ti me ([facility]C MSURG) BONE MARROW BIOPSY AND ASPIRATION; DIAGNOSTIC (WRVU 1.44) Anemia, in pt with longstanding neutropenia 05/29/2024 2:00 PM EDT documented as of this encounter Visit Diagnoses Not on filedocumented in this encounter Care Teams Family Health Nurse Practitioner Relationship Specialty Start Date End Date Magdalena Acosta MD [address] [place] [address] PCP - General Family Medicine 02/05/23 documented as of this encounter
--- OUTSIDE RECORDS SUMMARY | 2024-05-18 14:04 | XMS_ITS | Encounter Summary ---
Author Organization [facility] Address [facility] [place] [address] Care Team Providers Care Tool Die Maker Name Role Phone Magdaelna Acosta MD Primary Care Provider [phone] Reason for Referral * Diagnostic Test (Routine) - Closed Specialty Diagnoses / Procedures Referred By Contac t Referred To Contact Cardiology Diagnoses S/P TAVR (transcatheter aortic valve replacement) Procedures Echocardiogram Transthoracic Vinod Juárez PA [facility] [place] [address] [facility] [place] [address] Referral ID Status Reason Start Date Expiration Date V isits Requested Visits Authorized [id number] Closed Specialty Service Requested 05/22/2023 05/21/2024 1 1 * Home Health Care (Routine) - Closed Specialty Diagnoses / Procedures Referred By Contac t Referred To Contact Diagnoses S/P TAVR (transcatheter aortic valve replacement) Alirio Hudson MD [facility] CARDIOTHORACIC SURGERY [address] [facility] & [address] [place] [address] Referral ID Status Reason Start Date Expiration Date V isits Requested Visits Authorized [id number] Closed Consult, Test & Treat 05/22/2023 11/18/2023 999 999 * Consultation (Routine) - Closed Specialty Diagnoses / Procedures Referred By Crispin maxwell Referred To Contact Cardiology Diagnoses S/P TAVR (transcatheter aortic valve replacement) Alirio Hudson MD [facility] CARDIOTHORAC[place] [address] Cardiac Rehab, [address] [place] [address] Referral ID Status Reason Start Date Expiration Date V isits Requested Visits Authorized [id number] Closed Consult, Test & Treat 05/22/2023 11/18/2023 36 36 * Diagnostic Test (Routine) - Closed Specialty Diagnoses / Procedures Referred By Crispin maxwell Referred To Contact Cardiology Diagnoses Aortic valve stenosis, etiology of cardiac valve disease unspecified Procedures Echocardiogram Transthoracic Transesophageal Echocardiogram (YUSRA) Radha Hollins MD [facility] [place] [address] [facility] [place] [address] Referral ID Status Reason Start Date Expiration Date V isits Requested Visits Authorized [id number] Closed Specialty Service Requested 05/11/2023 05/10/2024 1 1 Reason for Visit * Auth/Cert (Routine) Specialty Diagnoses / Procedures Referred By Crispin maxwell Referred To Contact Diagnoses Symptomatic severe aortic stenosis with low ejection fraction NSTEMI, CHF Enrique Chua MD [facility] [place] [address] [facility] Referral ID Status Reason Start Date Expiration Date Visits Re quested Visits Authorized [id number] 1 1 Encounter Details Date Type Department Care Team (Latest Contact Info) Description 05/08/2023 9:14 AM EDT - 05/22/2023 10:46 AM EDT Hospital Encounter Heart and Vascular Unit Level 4 [place] [address] Enrique Chua MD [facility] [place] [address] Juan Luis Gonzalez MD [facility] [place] [address] Radha Hollins MD [facility] [place] [address] Alirio Hudson MD S/P TAVR (transcatheter aortic valve replacement) (Primary Dx); Aortic valve stenosis, etiology of cardiac valve disease unspecified; Symptomatic severe aortic stenosis with low ejection fraction; Heart failure with reduced ejection fraction due to heart valve disease; Mild coronary artery disease by [facility] 11/09/2022; Mixed connective tissue disease; Neck pain; [...] Patient Age: 67 y.o. Birthdate: 1955 Language: Occitan Race: White Ethnicity: Not nor Admit Date: 05/08/2023 Discharge Date: 05/22/2023 Attending Physician: Alirio Hudson MD Follow-up Recommendations for Providers: Please continue routine management of cardiovascular risk factors including blood pressure, lipids,glucose, etc. Please note any medication changes. Patient to follow up with PCP, Magdalena Acosta MD, or Primary Chief Engineering Division, Maria Luz Mejia MD, in ~ 7-10 days. Patient to follow up with Staple Side Laster, Dr. Antelmo Sharma, in 2 weeks with an EKG, Echo, CBC, and CMP. Patient to follow up with Nephrology, their office to arrange. Klse-Lsodmv-sn interval: After initial 30 day follow-up appointment , all TAVR patients will follow-up again in one year with an echo. 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 Secondary Diagnoses: Active Hospital Problems Diagnosis S/P TAVR (transcatheter aortic valve replacement) Cardiogenic shock Symptomatic severe aortic stenosis with low ejection fraction Mild coronary artery disease by [facility] 11/09/2022 Heart failure with reduced ejection fraction [...] Tube Placement Right 05/18/2023 Laure Ricks PA [facility] INTERVENTIONL RAD PRG CATH PLMT LEFT HEART CATH & ARTS W/INJ & ANGIO IMG S&I N/A 11/09/2022 CORONARY ANGIOGRAPHY; W [facility],POSSIBLE PCI (WRVU 5.6) performed by Mario Alberto Escobedo MD at [facility] CATH LABS PRG COMBINED RIGHT & LEFT HEART CATH W/INJ L VENTRICULOGRAPHY, IMG S&I N/A 05/12/2023 COMBINED RIGHT & LEFT HEART CATH,INC INJ FOR L VENTRICULOGRAPHY (WRVU 5.99) performed by Antelmo Sharma MD at [facility] CATH LABS PRO AORTOPLAS FOR SUPRAVALV STEN N/A 09/21/2016 @AORTOPLASTY FOR SUPRAVALVULAR STENOSIS (WRVU 29.33) performed by Alirio Hudson MD at [facility] MAIN OR PRO REPLACE AORTIC VALVE (TAVR/FEDERICO)PERC FEMORAL ARTERY APPROACH 05/12/2023 @TRANSCATHETER AORTIC VALVE REPLACEMENT (TAVR), PERCUTANEOUS FEMORAL (WRVU 22.47) performed by Alirio Hudson MD at [facility] CATH LABS PRO REPLACEMENT PROSTHETIC AORTIC VALVE OPEN W CARDIOPULMONARY BYPASS HOMOGRF/STENT N/A 09/21/2016 @REPLACE AORTIC VALVE, OPEN, W\CPB, W\PROSTHETIC VALVE (WRVU 41.32) performed by Alirio Hudson MD at [facility] MAIN OR Prior To Admission Medications [...] Major Procedures/Operations: 05/12/23: Successful right transfemoral TAVR Rpriq-kd-Aplwk with a 23 mm Lai 3 THV. [...] TAVR and she was brought to the crime lab technician the following morning where Drs. [...] if you have questions. Please call your Staple Side Laster's office if you have any discharge or drainage from your procedural sites. Your Staple Side Laster, Dr. Antelmo Sharma and/or the Centrifugal Chiller Technician may be reached at . Antibiotic prophylaxis: You will need to take antibiotics prior to many invasive tests and treatments, such as dental cleaning, which should be done every 6 months. Your primary care physician or your dentist can prescribe this medication. Please refer to the card with the [place] [employer] Guidelines for more information. You have been provided with a copy of this card. Please refer to the [place] [employer] Guidelines for more information. Good [...] should resume a low fat, low cholesterol, [place] [employer] Diet Driving: No restrictions. Shower/Bath: You may shower daily. No baths, soaking, or swimming for the first week. Wound care: Wash the sites daily with soap and rinse well, pat dry. Assess for any signs of infection such as increased redness, pain, warmth or drainage. Please call your radio news writer's office if you have any discharge or drainage from your procedural sites. If there is a lot of swelling, apply mamta wraps during the day and remove at bedtime. Elevate your legs when you are sitting. Home oxygen therapy: N/A Follow up appointments: Please schedule a follow-up appointment with your PCP, Magdalena Acosta MD, or Primary Chief Engineering Division in ~ 7-10 days. You have a follow-up appointment with your Staple Side Laster, Dr. Antelmo Sharma, in 2 weeks with an EKG, Echo, and labs prior to your appointment. You will need follow-up with Nephrology, their office will arrange. Uqqz-Dgriyz-bd interval: After initial 30 day follow-up appointment , all TAVR patients will follow-up again in one year with an echo. Cardiac Rehabilitation: Purnima Thacker was seen today regarding participation in the outpatient Phase 2 Cardiac Rehabilitation at [facility]. The patient agrees to a referral to this program. The referral will be sent at discharge and the patient should be contacted by the Program within 1- 2 weeks from discharge. Future Appointments and Orders Future Appointments and Orders Future Appointments Provider Department Dept Phone 07/29/2023 11:00 AM Magdalena Peralta MD [place] [facility] [place] at[place] [facility] [phone] 02/11/2024 2:00 PM Marek Bonilla MD Dermatology at [place] Arrive at: [facility] [address] [phone] Future Orders Complete By Expires Type and Screen Future Surgery, [facility] [place]GRAM ONLY) [REM4275 Custom] 05/11/2023 Process Instructions: This test is intended ONLY for patients with upcoming surgery for testing prior to the day of surgery obtained through the same day program (4V or SDP). For ALL OTHER PATIENTS, order a Type and Screen (KOL351) This order includes the physician order for an ABO Recheck if requested by the Blood Bank. Scheduling Instructions: Comments: Questions: Date of surgery: CBC (with Diff) [CNG103 Custom] 06/05/2023 12/05/2023 Process Instructions: INCLUDES: WBC, RBC, Hgb, Hct, Platelets, RBC Indices and Differential Scheduling Instructions: Comments: Questions: Comprehensive metabolic panel (non-fasting) [LAB17 Custom] 06/05/2023 08/20/2023 Process Instructions: INCLUDES: Calcium, T Protein, Albumin, AST, ALT, Alk Phos, T Bili, BUN, Creat, GFR, Glucose, Lytes. Scheduling Instructions: Comments: Questions: Echocardiogram Transthoracic [10325 CPT(R)] 06/05/2023 12/05/2023 Process Instructions: Scheduling Instructions: Questions: Where will study be performed[place] [facility] [place] Does the patient have Congenital Heart Disease?: Does patient require sedation?: GA rationale: EKG 12 Lead [14739 CPT(R)] 06/05/2023 12/05/2023 Process Instructions: Scheduling Instructions: Questions: Which location will this be performed?: [place] Is a rhythm strip needed?: No [facility] [employer] [EQ161 Custom] As directed Process Instructions: Scheduling Instructions: Questions: Device Needed: WALKER (E0143) Patient Height (cm): 154.9 cm (5' 0.98) Patient Weight: 75.4 kg (166 lb 3.2 oz) Diagnosis: Unsteady gait when walking Referral to Cardiac Rehab [AGY060 Custom] As directed Process Instructions: If no progress note charted, please enter Clinical details in comments. Scheduling Instructions: Questions: My question or request is: s/p TAVR. Cardiac rehab at [facility]. Referral to Home Health [REF34 Custom] As directed Process Instructions: If no progress note charted, please enter Clinical details in comments. Scheduling Instructions: Comments: DOCUMENTATION FOR VNA SERVICES PATIENT'S LOCATION: Purnima Thacker [address] [place] [phone] (home) Filter Tank Operator's Name: Self and brother Raymond In discussion with the attending physician, it is certified that this patient is under his/her careand that MD, or an MANAGER RETIREMENT, DIVINITY TEACHER, or PA who is working directly with him/her, had a zhsj-zr-xijg encounter that meets the physician fhfq-ik-cgev encounter requirements with this patient on 05/22/2023. [...] for managing ADLs. HOME HEALTH CARE AGENCY: [facility]. [address] [place] [address] PHONE: [phone] FAX: [phone] Start of care: Ideally 24-48 hours after [...] Magdalena Acosta MD [address] / [facility] [address] All VNA agencies which cover the area of patient's residence have been reviewed, either verbally joao writing, and patient has chosen the home health care agency noted. Questions: Disciplines Requested: Physical Therapy Occupational Therapy Discharge References/Attachments None Arrangements for VNA/home care: As above. (delete if no VNA) Signed: EKATERINA NAVARRETE [facility] Section of Cardiac Surgery Date: 05/22/2023 CC: Magdalena Acosta MD SalyerMario Alberto MD [address] [place] [address] documented in this encounter Discharge Instructions * Patient Instructions* Vinod Juárez PA - 05/22/2023 9:32 AM EDT TAVR Discharge Instructions: Call your doctor if: You have a fever of greater than 101 degrees, shaking chills, if you develop redness or drainage from your procedure sites, or if you have questions. Please call your Staple Side Laster's office if you have any discharge or drainage from your procedural sites. Your Staple Side Laster, Dr. Antelmo Sharma and/or the Centrifugal Chiller Technician may be reached at . Antibiotic prophylaxis: You will need to take antibiotics prior to many invasive tests and treatments, such as dental cleaning, which should be done every 6 months. Your primary care physician or your dentist can prescribe this medication. Please refer to the card with the [place] Heart [employer] Guidelines for more information. You have been provided with a copy of this card. Please refer to the [place] Heart [employer] Guidelines for more information. Good [...] should resume a low fat, low cholesterol, [place] [employer] Diet Driving: No restrictions. Shower/Bath: You may shower daily. No baths, soaking, or swimming for the first week. Wound care: Wash the sites daily with soap and rinse well, pat dry. Assess for any signs of infection such as increased redness, pain, warmth or drainage. Please call your radio news writer's office if you have any discharge or drainage from your procedural sites. If there is a lot of swelling, apply mamta wraps during the day and remove at bedtime. Elevate your legs when you are sitting. Home oxygen therapy: N/A Follow up appointments: Please schedule a follow-up appointment with your PCP, Magdalena Acosta MD, or Primary Chief Engineering Division in ~ 7-10 days. You have a follow-up appointment with your Staple Side Laster, Dr. Antelmo Sharma, in 2 weeks with an EKG, Echo, and labs prior to your appointment. You will need follow-up with Nephrology, their office will arrange. Kljy-Bzkbbf-rd interval: After initial 30 day follow-up appointment , all TAVR patients will follow-up again in one year with an echo. Cardiac Rehabilitation: Purnima Thacker was seen today regarding participation in the outpatient Phase 2 Cardiac Rehabilitation at [facility]. The patient agrees to a [...] ins ( tef) Haven Ba, PT Pager: [phone] Physical Therapy Inpatient Rehabilitation Department * Nico [...] 0600 and on the weekends please page [phone]. * Jory Paniagua - 05/20/2023 3:52 PM [...] vomiting Last Bowel Movement: 05/20/23 Jory Paniagua Insight Director * Mike Tong, OT - 05/20/2023 3:16 [...] Tube Placement Right 05/18/2023 Laure Ricks PA [facility] INTERVENTIONL RAD PRG CATH PLMT LEFT HEART CATH & ARTS W/INJ & ANGIO IMG S&I N/A 11/09/2022 CORONARY ANGIOGRAPHY; W [facility],POSSIBLE PCI (WRVU 5.6) performed by Mario Alberto Escobedo MD at [facility] CATH LABS PRG COMBINED RIGHT & LEFT HEART CATH W/INJ L VENTRICULOGRAPHY, IMG S&I N/A 05/12/2023 COMBINED RIGHT & LEFT HEART CATH,INC INJ FOR L VENTRICULOGRAPHY (WRVU 5.99) performed by Antelmo Sharma MD at [facility] CATH LABS PRO AORTOPLAS FOR SUPRAVALV STEN N/A 09/21/2016 @AORTOPLASTY FOR SUPRAVALVULAR STENOSIS (WRVU 29.33) performed by Alirio Hudson MD at [facility] MAIN OR PRO REPLACE AORTIC VALVE (TAVR/FEDERICO)PERC FEMORAL ARTERY APPROACH 05/12/2023 @TRANSCATHETER AORTIC VALVE REPLACEMENT (TAVR), PERCUTANEOUS FEMORAL (WRVU 22.47) performed by Alirio Hudson MD at [facility] CATH LABS PRO REPLACEMENT PROSTHETIC AORTIC VALVE OPEN W CARDIOPULMONARY BYPASS HOMOGRF/STENT N/A 09/21/2016 @REPLACE AORTIC VALVE, OPEN, W\CPB, W\PROSTHETIC VALVE (WRVU 41.32) performed by Alirio Hudson MD at [facility] MAIN OR Social History: Patient lives alone. Home Setup: Pt lives on one level with tub shower and three steps to enter. DME: none used PAYMENT PROCESSOR Baseline ADL/Mobility: Independent with ADLs and IADLs. [...] Vision & Perception: corrective lenses real time operator Communication: WFL Range of motion, strength, [...] Discharge planning. Total Minutes, Occupational Therapy: 28 ([id number]) OT Evaluation Code Rationale: Diagnosis & Pertinent Co-Morbidities affecting Plan of Care: see PMHx Occupational Profile & Client History: Brief Expanded Extensive x Assessment of Occupational Performance: 1-3 performance deficits 3-5 performance deficits x 5 + performance deficits Clinical Decision Making: Low Moderate High x Clinical decision making of moderate complexity using standardized patient assessment instrument and measurable assessment of functional outcome. Pager: [phone] TONG MIKE OT 05/20/2023 Occupational Therapy Rehabilitation [...] 0600 and on the weekends please page [phone]. * Rylie Rodriguez MD - 05/19/2023 3:59 [...] and plan. Cynthia Blackburn MD Nephrology Pager: [phone] * Diana Espino - 05/19/2023 1:49 PM EDT Electric Motor Repairing Supervisor Encounter Note Patient Name: Purnima Thacker : [id number] MR#: [id number] Admit Date: 05/08/2023 9:14 AM Hospital Day [...] as stated. Total Minutes, Physical Therapy: 38 (3048-1364) Henrik Dale CANDY Navarrete Pager: [phone] Physical Therapy Inpatient Rehabilitation Department * Nico [...] 0600 and on the weekends please page [phone]. * Laure Ricks PA - 05/19/2023 7:56 [...] Ricks PA-C Interventional Radiology IR Team Pager [phone] * Consuelo Espinoza RN - 05/18/2023 4:13 PM EDT ANGIO NURSING DATABASE Name: Purnima Thacker Date of : 1955 AGE: 67 y.o. Address: [address] [place] [phone] (home) Mobile: No relevant phone numbers on [...] and plan. Cynthia Blackburn MD Nephrology Pager: [phone] * Magdalena Puri, ANURAG - 05/18/2023 10:51 AM EDT Images from the original note were not included. [facility] [place] [address] STRUCTURAL HEART DISEASE CONSULTATION NOTE PRIMARY CARE [...] stenosis. She is now status post TAVR Ijvkc-ti-Rpjyj with a 23 mm Lai 3 THV 05/12/[address] Sharma. Preliminary findings: Successful right transfemoral TAVR Ovadj-fx-Bohvo with a 23 mm Lai 3 THV. [...] perforation. Interval Events: - 05/12 Transferred to [facility] post- TAVR for pressor/inotropic support (Levo, vaso, [...] ejection fraction Mild coronary artery disease by [facility] 11/09/2022 Heart failure with reduced ejection fraction [...] mg 81 mg Oral Daily Mara Serrano TELEX OPERATOR 81 mg at 05/18/23 0826 ondansetron (pf) (Zofran) (2 mg/mL) injection 4 mg 4 mg Intravenous Q8H PRN Mara Serrano TOREYN4 mg at 05/12/23 0736 pantoprazole EC (Protonix) tablet 40 mg 40 mg Oral Daily Mara SerranoTOREYN 40 mg at 05/18/23 0826 Or pantoprazole (Protonix) injection 40 mg 40 mg Intravenous Daily Mara Serrano TELEX OPERATOR 40 mg at 05/12/23 1004 senna-docusate (Pericolace) [...] stenosis. She is now status post TAVR Vjdtm-qg-Gcnio with a 23 mm Lai 3 THV 05/12/[address] Sharma. Janet TAVR case notable for coronary LAD protective MINNA. Status post TAVR, the patient was transferred to [facility] for pressor and inotropic support. Pressors weaned [...] Magdalena Puri APRN Structural Heart Team Pager [phone] Team Office Please see addendum by Dr. Sharma for final plan and recommendations Associated attestation - Antelmo Sharma MD - 05/19/2023 10:52 PM EDT I have reviewed Magdalena uPri APRN's above history and I agree with the details as written. The assessment and plan were formulated in discussion with me and I agree with them as documented. Antelmo Shamra MD Pager [phone] * Nico Palacios PA - 05/18/2023 8:13 [...] 0600 and on the weekends please page [phone]. * Loli Hernandez, PT - 05/17/2023 5:27 [...] plan as stated. Time IN / OUT: 3359-2731 Total Minutes, Physical Therapy: 54 Billing Code: te-sx2, te-f, gait LOLI HERNANDEZ PT Pager: [phone] Physical Therapy Inpatient Rehabilitation Department * Cynthia [...] Well controlled. Cynthia Blackburn MD Nephrology Pager: [phone] * Mara Serrano, TELEX OPERATOR - 05/17/2023 8:26 AM EDT Cardiac [...] 0600 and on the weekends please page [phone]. * Guerda Del Valle - 05/16/2023 10:44 AM EDT Nutrition Services Note - Low Nutrition Acuity Purnima Thacker is a 67 y.o. female Reason for intervention: hospital day 9 Nutrition Plan: Continue diet order Encourage good PO Lasix and Zofran noted Added special serve: open containers Monitor weight Patient scheduled for a hospital day 9 nutrition evaluation. Technical Writer And Editor met with pt at bedside. Pt reports that her appetite and PO has much improved since admission. Denies nausea/vomiting or trouble chewing/swallowing. Technical Writer And Editor provided snack list but pt not interested in adding snacks at this time. Her only concern was that she is worried that she will eat too much which will cause too much pressure in her stomach. Technical Writer And Editor assured pt and suggested eating smaller but [...] Last Bowel Movement: 05/10/23 Guerda Del Valle Insight Director * Vinod Juárez PA - 05/16/2023 10:19 [...] 0600 and on the weekends please page [phone]. * Michael Jeffers MD - 05/16/2023 8:11 AM EDT Images from the original note were not included. Hypertension-Nephrology Inpatient Follow-up Purnima Thacker [id number] 1955 ID: 67 y.o. old female seen [...] IRONSAT 12 (L) 05/16/2023 SFOLATE >20.0 07/03/2022 [id number] 07/03/2022 Lab Results Component Value Date [...] Dr. Ayoub. Please contact me at phone: [phone] or pager: [phone] with any questions. Michael Jeffers MD Nephrology [...] -Nephrology consulted, labs and renal US ordered -[place] removed, ambulated around the unit -bilateral pleural [...] on the weekends please page [phone]. * Hortencia Cody MD - 05/15/2023 2:07 [...] not included. Hypertension-Nephrology Inpatient Follow-up Purnima Thacker [id number] 1955 ID: 67 y.o. old female seen [...] HGB 7.8 (L) 05/13/2023 SFOLATE >20.0 07/03/2022 [id number] 07/03/2022 Lab Results Component Value Date [...] Dr. Ayoub. Please contact me at phone: [phone] or pager: [phone] with any questions. Michael Jeffers MD Nephrology & Hypertension Fellow Associated attestation - Kristopher Ayoub MD - 05/15/2023 3:56 PM EDT Renal Staff Addendum Patient seen and examined with Dr. Jeffers. I agree with the above note which represents our joint assessment and plan with the following additions: EVNAS in the setting of TAVR, CHF. Volume [...] outlined inthis evaluation. HAVEN BA, PT Pager: [phone] Physical Therapy Inpatient Rehabilitation Department Time IN / OUT: 1327-8500 Total time: Total Minutes, Physical Therapy: 30 [...] 0600 and on the weekends please page [phone]. * Antlemo Sharma MD - 05/14/2023 7:56 AM EDT Images from the original note were not included. [facility] [place] [id number] STRUCTURAL HEART DISEASE CONSULTATION NOTE PRIMARY CARE PROVIDER: Magdalena Acosta MD REFERRING PROVIDER: Mario Alberto H Salyer REASON FOR CONSULTATION: Bioprosthetic aortic valve stenosis [...] stenosis. She is now status post TAVR Oggva-jb-Koasu with a 23 mm Lai 3 THV 05/12/[address] Sharma. Preliminary findings: Successful right transfemoral TAVR Pctdt-tp-Tfupr with a 23 mm Lai 3 THV. [...] ejection fraction Mild coronary artery disease by [facility] 11/09/2022 Heart failure with reduced ejection fraction [...] stenosis. She is now status post TAVR Pgxki-oc-Eotfh with a 23 mm Lai 3 THV 05/12/[address] Sharma. Janet TAVR case notable for coronary LAD protective MINNA. Status post TAVR, the patient was transferred to CV for pressor and inotropic support. Pressors weaned overnight 05/12. Cardiac indices by thermodilution remained >3 with continued Milrinone 0.125 mcg/kg/min prior to PAC removal. EKG todayNSR with stable HI/QRS intervals. Hemoglobin slowly down-trending (8.2-> 7.8-> 7.2). [...] Suyapa ANURAG Kaplan Structural Heart Team Pager [phone] Team Office Please see addendum by Dr. [...] exposure. Nephrology consultationtoday. Antelmo Sharma MD Pager [phone] * Antelmo Cardenas RN - 05/14/2023 5:18 AM EDT Pt AOx4, complaining of mild/moderate generalized pain (states her Meloxicam is effective at home) currently refusing prn oxycodone. NAEON, hemodynamically stable on Milrinone, Maps >65, ST in bdd940's down to NSR with frequent multifocal PVC's. [...] the original note were not included. [facility] [place] [address] STRUCTURAL HEART DISEASE PROGRESS NOTE PRIMARY CARE [...] stenosis. She is now status post TAVR Uemnj-fx-Ydrzh with a 23 mm Lai 3 THV 05/12/[address] Sharma. Preliminary findings: Successful right transfemoral TAVR Ojehs-fj-Utwax with a 23 mm Lai 3 THV. [...] or perforation. Interval Events: - Transferred to [facility] post- TAVR for pressor/inotropic support (Levo, vaso, [...] ejection fraction Mild coronary artery disease by [facility] 11/09/2022 Heart failure with reduced ejection fraction [...] stenosis. She is now status post TAVR Bdlyz-zh-Sitkz with a 23 mm Lai 3 THV 05/12/[address] Sharma. Janet TAVR case notable for coronary LAD protective MINNA. Status post TAVR, the patient was transferred to [facility] for pressor and inotropic support. Pressors weaned overnight. Cardiac indices by thermodilution remain greater than 3 with continued Milrinone 0.125 mcg/kg/min. EKG today NSR with stable HI/QRS intervals. Hemoglobin 7.8 today from 8.5, likely [...] Brody Kaplan APRN Structural Heart Team Pager [phone] Team Office Please see addendum by Dr. [...] DAPT moving forward. Antelmo Sharma MD Pager [phone] * Bonita Miguel PA - 05/13/2023 8:30 AM EDT Cardiac Surgery Progress Note Purnima Thacker is a 67 y.o. 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 PMH of s/p tissue AVR (2017), mixed connective tissue disease HTN, HLD, NICOLAS, diverticulosis, rosacea, essential tremor, and depression. 24h Events: From crime lab technician for above procedure Extubated at [...] soft b/l, no evidence of hematoma. Tubes/Lines/Drains: [place], RIJ, A-line, Art, PIV Assessment/Plan: 67 y.o. [...] 0600 and on the weekends please page [phone]. * Onelia Schwartz MD - 05/12/2023 1:44 [...] ejection fraction Mild coronary artery disease by [facility] 11/09/2022 Heart failure with reduced ejection fraction [...] FiO2 weaned to 40%. 1105: ABG 7.34/42/73/22 [id number]: SBT performed and passed on these settings [...] PCP: Magdalena Acosta MD PCP phone number: [phone] Date of Admission: 05/08/2023 ( Hospital Day [...] 1447 PHART -- 7.34* 7.34* -- -- SBI4VVZ -- 30* 30* -- -- PO2ART -- 72* 81* -- -- YRM0MZV -- 16.0* 15.7* -- -- LACTATEVEN 2.4* 2.7* 2.7* 4.8* 2.9* VBG (Venous Blood Gas) Recent Labs 05/12/23 0700 05/12/23 0318 05/12/2310505/11/23193905/11/23 1447 LACTATEVEN 2.4* 2.7* 2.7* 4.8* 2.9* Mixed Venous Sat Recent Labs 05/12/23 0508 05/12/23 0321 05/12/23 0114 05/12/23 0030 [id number] 30.7 32.7 37.3 25.1 Objective: Vitals Last [...] please contact the health post acute care registered nurse that requested your imaging first. Electronically signed by: ALIX RUVALCABA MD, [facility] ([phone]), at 05/10/2023 1:[address] Cardiac for [...] please contact the health post acute care registered nurse that requested your imaging first. Electronically signed by: Cullen Narayanan MD, [facility] ([phone]), at 05/11/2023 4:[address] Angiogram Abdomen [...] please contact the health post acute care registered nurse that requested your imaging first. Electronically signed by: Eileen Gomes MD, [facility] ([phone]), at 05/11/2023 2:42 PM XR Chest One [...] please contact the health post acute care registered nurse that requested your imaging first. Chest [...] please contact the health post acute care registered nurse that requested your imaging first. Assessment [...] and inotrope. She is planned for a hzrws-bi-yccqv TAVR this morning, which should hopefully improve [...] MD, FACP, FACC Section of Cardiovascular Medicine [facility] Engraver Set Up Operatorlearning technologist [facility] * Noreen Deutsch RN - 05/12/2023 [...] ejection fraction Mild coronary artery disease by [facility] 11/09/2022 Heart failure with reduced ejection fraction [...] 05/11/2023 4:11 PM EDT Reported off to STITCH BONDING MACHINE TENDER and pt transferred over in the bed for higher level of care. * Antelmo Sharma MD - 05/11/2023 9:45 AM EDT Images from the original note were not included. [place] [id number] STRUCTURAL HEART DISEASE CONSULTATION NOTE PRIMARY CARE [...] who had been referred for possible TAVR rcwxe-cu-pbreo evaluation. Her primary symptoms are of dyspnea [...] from [facility]. 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 She states [...] ejection fraction Mild coronary artery disease by [facility] 11/09/2022 Heart failure with reduced ejection fraction [...] Lactate, whole blood, send to lab [place] [place] Result Value Ref Range Lactate WB 3.1 (H) 0.5 - 2.2 mmol/L Heparin (unfractionated) Level Result Value Ref Range Heparin UFH Level 0.46 IU/mL Lactate, whole blood, send to lab ([facility] [place]) Result Value Ref Range Lactate WB 1.8 [...] leads Confirmed by MD Harshil, Enrique Bell ([id number]) on 05/10/2023 8:11:46 AM Cardiac Cath 11/09/2022 [...] 05/12/2023. Brody KaplanANURAG Structural Heart Disease Pager [phone] Please see addendum by Dr. Sharma for [...] signed and dated. Antelmo Sharma MD Pager [phone] * Harini Lance MD - 05/11/2023 6:06 AM EDT Images from the original note were not included. Cardiology Progress Note Patient info: Name: Purnima Thacker : 1955 PCP: Magdalena Acosta MD PCP phone number: [phone] Date of Admission: 05/08/2023 ( Hospital Day [...] please contact the health post acute care registered nurse that requested your imaging first. Electronically signed by: ALIX RUVALCABA MD, [facility] ([phone]), at 05/10/2023 1:25 PM TTE: 05/08 -Left [...] 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) Mild coronary artery disease by [facility] 11/09/2022 Hyperlipidemia, unspecified NICOLAS (obstructive sleep apnea) [...] PCP: Magdalena Acosta MD PCP phone number: [phone] Date of Admission: 05/08/2023 ( Hospital Day [...] 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) Mild coronary artery disease by [facility] 11/09/2022 Hyperlipidemia, unspecified NICOLAS (obstructive sleep apnea) [...] PCP: Magdalena Acosta MD PCP phone number: [phone] Date of Admission: 05/08/2023 ( Hospital Day [...] Gas) No results found for: PHART, PO2ART, GSS3DSO, ROB2AHI Microbiology: Microbiology Results (Last 30 days) No [...] Diet: Daily Healthy Menu Choices/Cardiac diet ([facility] [place] Lines: Peripheral IV Line [...] 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) Mild coronary artery disease by [facility] 11/09/2022 Hyperlipidemia, unspecified NICOLAS (obstructive sleep apnea) [...] IMG S&I N/A 11/09/2022 CORONARY ANGIOGRAPHY; W [facility],POSSIBLE PCI (WRVU 5.6) performed by Mario Alberto Escobedo MD at [facility] CATH LABS PRO AORTOPLAS FOR SUPRAVALV STEN N/A 09/21/2016 @AORTOPLASTY FOR SUPRAVALVULAR STENOSIS (WRVU 29.33) performed by Alirio Hudson MD at [facility] MAIN OR PRO REPLACEMENT PROSTHETIC AORTIC VALVE OPEN W CARDIOPULMONARY BYPASS HOMOGRF/STENT N/A 09/21/2016 @REPLACE AORTIC VALVE, OPEN, W\CPB, W\PROSTHETIC VALVE (WRVU 41.32) performed by Alirio Hudson MD at [facility] MAIN OR Social History and Habits: [...] hr Take 180 mg by mouth daily. [employer]awi HoldingsTouch Verio test strips Strip USE DAILY OneTouch [...] performed by Mario Alberto Escobedo MD at [facility] CATH LABS PRO AORTOPLAS FOR SUPRAVALV STEN N/A 09/21/2016 @AORTOPLASTY FOR SUPRAVALVULAR STENOSIS (WRVU 29.33) performed by Alirio Hudson MD at [facility] MAIN OR PRO REPLACEMENT PROSTHETIC AORTIC VALVE OPEN W CARDIOPULMONARY BYPASS HOMOGRF/STENT N/A 09/21/2016 @REPLACE AORTIC VALVE, OPEN, W\CPB, W\PROSTHETIC VALVE (WRVU 41.32) performed by Alirio Hudson MD at [facility] MAIN OR Social History and Habits: [...] days, which prompted her to present to [employer]. She also endorses some intermittent retrosternal chest pain with exertion.She endorses some dizziness with exertion, but has not gotten faint or passed out. At [employer] she was noted to be afebrile, blood pressure 105/64, HR 120s, satting 95% on 2L NC. Labs from [employer] [facility] are below, of note she had [...] 89/59, which prompted the transfer to us. [facility] labs: CBC - Hgb 10.5 CMP - Cr 1.1 BNP 47522 HsTrop 1358 Lactate 1.6 D-dimer 1183 Interval [...] Rudolphluiz Reid MD Internal Medicine PGY-1 Pager [phone], M1-S1 Service Associated attestation - Juan Luis Gonzalez MD - 05/08/2023 10:00 PM EDT Cardiology Attending Addendum Active Hospital Problems Diagnosis Symptomatic severe aortic stenosis with low ejection fraction Heart failure with reduced ejection fraction due to heart valve disease Mild coronary artery disease by [facility] 11/09/2022 Hyperlipidemia, unspecified History of aortic valve replacement Resolved Hospital Problems No resolved problems to display. I have interviewed and examined the patient, reviewed the available data, and have discussed my findings, assessment and plan with the patient and the team on admission to S2 service (from [facility] service) today. I agree with Dr. Reid's [...] PCP: Magdalena Acosta MD PCP phone number: [phone] Date of Admission: 05/08/2023 ( Hospital Day 0 days ) Attending:Enrique Chua MD ID: Purnima Thacker is a 67 y.o. female w/ PMH of s/p bioprosthetic AVR in 2016 with recent concern for severe restenosis, HTN, HLD, mixed connective tissue disease, who presents in transfer from [facility] with worsening BONILLA and weight gain [...] four days, which promptedher to present to [employer]. She also endorses some intermittent retrosternal chest pain with exertion. She endorses some dizziness with exertion, but has not gotten faint or passed out. At [facility] [facility] she was noted to be afebrile, blood pressure 105/64, HR 120s, satting 95% on 2L NC. Labs from [facility] are below, of note she had [...] 89/59, which prompted the transfer to us. [facility] labs: CBC - Hgb 10.5 CMP - Cr 1.1 BNP 63743 HsTrop 1358 Lactate 1.6 D-dimer 1183 Vasoactive [...] tissue disease, who [facility] BONILLA and weight gain concerning [...] Diet: Daily Healthy Menu Choices/Cardiac diet [place] [place] DVT Prophylaxis: heparin gtt GI Prophylaxis: none Code Status: Attempt Cardiopulmonary Resuscitation - Inpatient Dispo: Pending clinical course Lincoln Sal MD Internal Medicine, PGY-1 Cardiology [facility] #[id number] 05/08/23 12:06 PM Cardiology Staff Addendum Purnima Thacker is a 67 y.o. female whom I saw today with Dr. aSl. I have personally interviewed and examined the [...] to the planned procedure. Hand Hygiene: The generation mechanic helper did perform hand hygiene prior [...] Successful arterial line placement. Crispin Timmons MD Centrifugal Chiller Technician Associated attestation - Onelia Schwartz MD [...] (flow was non-pulsatile) and appearance of blood. [place]-Marily catheter was placed and locked at 55 [...] [facility], [place] [address] [place] [address] Cardiac Rehab, [address] [place] [address] [facility], [place] [address] [place] [address] Transportation: family or friend will provide *Brother [...] Type: *No Product type* / Secondary Insurance: [employer] [place] Prescription Coverage: Yes This plan was formulated with input from patient, family (please identify family/friend involved ifapplicable) and team. All are in agreement with plan. Aliza Martino MSN-Ed, RN ACM color mixer Office of Care Management Pager #[phone] * Plan of Care - Favian Mckeon [...] Chaudhary RN - 05/21/2023 4:46 PM EDTSummary: [facility] referral OFFICE OF CARE [...] Type: *No Product type* / Secondary Insurance: [employer] [place] Last Physical Therapy Recommendation: (Home with [...] planning needs. describing our affiliations within the [facility] and educate about their right to choose where referrals are sent. provide a list of Home Health Agencies / Durable Medical Equipment vendors which serve their preferred geographic area. They have requested referrals to: [facility] [address] [place] [address] [facility] Care Located @ [facility] Note routed to a Slitter Creaser Slotter Helper who will communicate referrals to facilities and provide any required information. Transportation: family or friend will provide *Brother Raymond on Tuesday 05/22 at 1000 Barriers to discharge: Does not have home 22/02 assist available until tomorrow Tuesday 05/22 Plan going forward: Discharge home into the 22/02 home care of brother Raymond with [facility]WW and [facility] PT/OT services [...] Attending: All Staff: Staff Role Juanita Almaguer Residential Recycle Driver Laure Ricks PA Physician Enforcement Manager Magdalena Rodriguez health lead Nurse Consuelo Espinoza health lead Nurse Post-operative diagnosis/Indication: Right pleural effusion Name [...] Type: *No Product type* / Secondary Insurance: Droplr [facility] [place] Last Physical Therapy Recommendation: retirement facility, swing bed rehabilitation facility with to be determined Last Occupational Therapy Recommendation: with Plan for discharge is: Retirement Facility / Swing Outpatient Agency/Support Group Needs: None Agency Referrals: Based on discussions with the multi-disciplinary healthcare team, the patient would benefit from SNF / Swing level of care at discharge. I have met with the patient to: discuss discharge planning needs. provide the [facility], Office of Care Management letter from the Pst Supervisor pertaining to rehab referrals. provide a letter describing our affiliations within the [facility] and educate about their right to choose where referrals are sent. provide the CMS Star Quality Rating handout. review the different levels of rehab including SNF, swing, and acute. provide a list of facilities within their preferred geographic area. request that they provide at least three choices for referral. They have requested referrals to: [facility] [address] [place] [address] [facility] ([facility]) [address] [place] [address] (Accepts pts only after exhausting all other local SNF options) [facility] (Swing) ([facility]) [address] [place] [address] PHONE: [phone] FAX: [phone] [facility] ([facility]) ([facility]) [address] [place] [address] PHONE: [phone] FAX: [phone] Note routed to a Slitter Creaser Slotter Helper who will communicate referrals to facilities and [...] RN - 05/17/2023 10:25 AM EDT [facility] [place] Purnima Thacker was seen today regarding participation in the outpatient Phase 2 Cardiac Rehabilitation at [facility]. The patient agrees to a [...] of breath. * Consult Note - Malathi uMro MD - 05/14/2023 11:06 AM EDT Images from the original note were not included. [facility] NEPHROLOGY/HYPERTENSION CONSULT NOTE PATIENT: Purnima [...] in her course. She ultimately underwent a chmwp-oh-yrwbl procedure on and tolerated it well (see [...] 1423 05/12/23 1105 PHART 7.39 7.37 7.34* VRZ0KHS 33* 36 42 PO2ART 101 102 73* ESO6BKE 19.5* 20.4 22.1 LACTATEVEN 1.5 1.8 2.8* SYP4YAX 40 40 40 PFRATIOART2 252 255 182 VBG (Venous Blood Gas) Recent Labs 05/12/23 1557 05/12/23 1423 05/12/23 1105 LACTATEVEN 1.5 1.8 2.8* Mixed Venous Sat Recent Labs 05/12/23 1425 05/12/23 0508 05/12/23 0321 Y7KBDQ3 59.9 30.7 32.7 LFT's: Recent Labs 05/14/23 0110 05/13/23 0115 05/12/23 0600 BILITOT 0.4 0.5 0.9 BILIDIR -- 0.3 -- ALBUMIN 3.6 3.0* 3.5 ALKPHOS 86 85 100 ALT 437* 903* 1,174* AST 319* 792* 1,435* No results found for: UPROTCREAT No results found for: TPROTEINPEP, ALBELECT No results found for: MICROALBUR, FBDU31GRJ No results found for: HA1C Lab Results Component Value Date CALCIUM 8.5 05/14/2023 PHOS 4.7 (H) 05/08/2023 No results found for: 25OHVITD MICROBIOLOGY: ProcedureComponentValueUnitsDate/TimeUrine culture [[id number]]Collected: 05/11/231921Lab Status: Final resultSpecimen: Clean Catch UrineUpdated: [...] consulted for assessment if this patient needs CRANE RIGGER. Atthis time, we can likely hold off on CRANE RIGGER. Her volume status appears sufficient and her metabolic kanwal angements with mild acidosis is not too profound. Patient does not have significant uremic symptoms. We can hold off for today, but the patient is a high risk candidate for needing CRANE RIGGER in future daysespecially if her Cr curve trends the direction it is for the next several days. S/p Orucv-bz-Mcygn TF TAVR: Management per cardiology. On milrinone gtt. PLAN: - Please obtain following diagnostics: renal US, urinalysis, urine prot/Cr ratio, urine albumin/Cr ratio, CK, uric acid, serum osmol, daily VBGs - No acute indications for CRANE RIGGER/dialysis. We will keep close eye on Cr trend, volume status, and metabolics to ensure patient still does not need CRANE RIGGER as she ensues intrinsic renal recovery - [...] M.H.A., M.A. PGY-V Nephrology-Hypertension Fellow Page # [phone] [facility] [address] 2nd floor, Demo Specialist [address] [place] [address] * Care Management - Mario Alberto Olmos [...] / Secondary Insurance: [facility] Plan for discharge is: Home [...] for a TAVR at 730. Returned to [facility] at 0945. Was intubated in the crime lab technician due to agitation. Maintained bedrest [...] Operative Note Patient Name: Purnima Thacker : [id number] MR#: [id number] Case Date: 05/12/2023 Surgeon: Surgeon(s) and Role: [...] procedure Note: Patient Name: Purnima Thacker : [id number] MR#: [id number] Case Date: 05/12/2023 Operators Surgeon: Surgeon(s) and [...] main with 4.0 x 30 mm Resolute Rooks Drug Eluting Stent Perclose x1 + Angio-seal 8 Fr x1, RFA Manual pressure, LFA Manual pressure, LFV Endotracheal intubation (performed by cardiac anesthesia) Preliminary findings: Successful right transfemoral TAVR Oupma-ar-Tvdji with a 23 mm Lai 3 THV. [...] MD, M.Sc. Structural Heart Disease Fellow Pager :[phone] Antelmo Sharma MD Pager [phone] * Op Note - Alirio Hudson MD - 05/12/2023 7:37 AM EDT Preop Diagnosis: Severe aortic stenosis, symptomatic. Postop Diagnosis: Same. Procedure: Transfemoral TAVR procedure with 23mm valve. Surgeon: Alirio Hudson M.D. Chief Engineering Division: Danny CULP Procedure: The patient was taken to the crime lab technician. The patient had monitored anesthesia [...] Brody Kaplan APRN Structural Heart Disease Pager [phone] * Consult Note - Vinod Juárez PA - 05/11/2023 2:16 PM EDT Cardiac Surgery Consultation Note Purnmia Thacker is seen at the request of Dr. Hollins for the evaluation of prosthetic . HPI: Purnima Thcaker is a 67 y.o. 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 [facility] [id number] STRUCTURAL HEART DISEASE CONSULTATION NOTE PRIMARY CARE [...] who had been referred for possible TAVR vlklc-nz-ubkxo evaluation. Her primary symptoms are of dyspnea [...] from [facility]. 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 PROBLEM LIST: Patient Active Problem List Diagnosis Symptomatic severe aortic stenosis with low ejection fraction Mild coronary artery disease by [facility] 11/09/2022 Heart failure with reduced ejection fraction [...] Lactate, whole blood, send to lab ([facility] [place] Result Value Ref Range Lactate WB 1.8 [...] leads Confirmed by MD Harshil, Enrique Bell ([id number]) on 05/10/2023 8:11:46 AM Assessment and Plan: [...] Antelmo Sharma MD Structural Heart Disease Pager [phone] * Plan of Care - Sarahi Nice RN - 05/10/2023 3:55 AM EDTSumcaydeny: VALDO Note and Care Plan Sarahi Nice RN assumed care of pt at time of their arrival to room 362 from [facility]. Pt voices shortness of breath at time [...] Transfer from another hospital Location: admitted from [facility] Reason for Hospitalization: Critical aortic stenosis, [...] receiving care in [place] must abide by [place] law. The hierarchy [...] (i) The agent with financial power of technology coordinator or a conservator appointed in accordance with [...] Current DME: none Home Address confirmed as: [address] [place] [id number] Social & Family Supports: All names listed [...] Type: *No Product type* / Secondary Insurance: Droplr [facility] [place] ONLY if patient has Medicare A&B - Does this patient have secondary insurance?: Yes ; Prescription Coverage: Yes Preferred Pharmacy: updated to [facility] Status: Patient is a : No Primary Care Provider confirmed: Magdalena Acosta MD [phone] Patient/Caregiver Goals of Treatment: Potential Needs for [...] of a 2 story home with [address] [facility]. Patient is independent with ADL's [...] of care planning. Alie Bradshaw RN, CM Pager-[phone] * Plan of Care - Emily Lucero RN - 05/08/2023 2:54 PM EDT OUTCOME EVALUATION NOTE: OUTCOME SUMMARY: Pt arrived from [facility]. A&O, no c/o pain or SOB. [...] PM EDT Hospital Encounter [facility] [place] [phone] Markel Borjas MD [facility] [address] HEMATOLOGY [place] [address] 05/29/2024 2:00 PM EDT - 05/29/2024 2:43 PM EDT Surgery [facility] [place] [address] Markel Borjas MD [facility] HEMATOLOGY [place] [address] (OSC MSURG) BONE MARROW BIOPSY AND ASPIRATION; DIAGNOSTIC (WRVU 1.44) 06/23/2024 2:00 PM EST Office Visit Hematology [place] [phone] Markel Borjas MD [facility] DR HEMATOLOGY [place] [address] 03/01/2025 4:15 PM EDT Office Visit Dermatology at [place] [address] [facility] [facility] [place] [address] Marek Bonilla MD [address], [place] [address] Scheduled Procedures Name Priority Associated Diagnoses Date/Ti [...] Heart Cath W/Inj L Ventriculography, Img S&I ([id number]) 05/12/2023 7:37 AM EDT Aortic valve stenosis, [...] AM EST Narrative 07/08/2023 12:26 PM EST [address] [place] [address] ? Echocardiogram Report Name: PURNIMA THACKER ?Study Date: 07/08/2023 10:31 AMBP: 118/60 mmHg ? Patient Location: 4A : 1955 ? Height: 155 cm ? Account: [id number] Age: 67 yrs ? Weight: 74 kg Gender: Female ?BSA: 1.7 m2 Ordering Physician: ALIRIO HUDSON Referring Physician: VINOD JUÁREZ Performed By: Felicia Norris RDCS Reason For Study: S/P TAVR Exam Location: [facility]. Interpretation Summary Left ventricular systolic function [...] no significant change (post-procedure). Procedure Limited - 66735. Doppler - 59143. Color Doppler - 00267. Satisfactory quality. This study is limited because [...] Note Lee Kincaid MD - 07/08/2023 [address] [place] [address] Echocardiogram Report Name: PURNIMA THACKER Study Date: 0:31 AMBP: 118/60 mmHg Patient Location: : 1955 Height: 155 cm Account: [id number] Age: 67 yrs Weight: 74 kg Gender: Female BSA: 1.7 m2 Ordering Physician: ALIRIO HUDSON Referring Physician: VINOD JUÁREZ Performed By: Felicia Norris RDCS Reason For Study: S/P TAVR Exam Location: [facility]. Interpretation Summary Left ventricular systolic function [...] is nosignificant change (post-procedure). Procedure Limited - 82897. Doppler - 69053. Color Doppler - 60036. Satisfactoryquality. This study is limited because of [...] 199 mg/dL [facility] Comment:Diabetes: >=200 mg/d L plus symptoms Blood Urea Nitrogen 19(H) 8 - 18 mg/dL [facility] Creatinine 0.81 0.70 - 1.20 mg/dL [facility] Sodium 142 135 - 145 mmol/L [facility] Potassium 3.8 3.5 - 5.0 mmol/L [facility] Comment: Please note: ??Patients with WBC >100,000 may have falsely elevated Potassium levels. ??For accurate Potassium quantification in these patients send serum separator tube (gold top) for subsequent determinations. ??Contact the Clinical Chemistry Laboratory if there are any questions. Chloride 104 98 - 107 mmol/L [facility] Carbon Dioxide 26 22 - 31 mmol/L [facility] Anion Gap 12 5 - 15 mmol/L [facility] Calcium 10.2 8.5 - 10.5 mg/dL [facility] Protein, Total 7.4 6.1 - 8.0 g/dL [facility] Albumin 4.1 3.2 - 5.2 g/dL [facility] Aspartate Aminotransferase 24 0 - 30 unit/L [facility] Alanine Aminotransferase 12 0 - 30 unit/L [facility] Alkaline Phosphatase 93 35 - 105 unit/L [facility] Bilirubin, Total 0.3 0.2 - 1.3 mg/dL [facility] Est Glomerular Filtration Rate 80 >=60 mL/min/1. 73 m?? [facility] Comment: This patient's estimated GFR was [...] Lab Alirio Hudson MD CHEMISTRY ORDERABLE S [facility] [place] [address] * (ABNORMAL) Basic Metabolic Panel (non-fasting) (05/22/2023 3:57 AM EDT) Glucose 88 65 - 199 mg/dL [facility] Comment:Diabetes: >=200 mg/d L plus symptoms Blood Urea Nitrogen 21(H) 8 - 18 mg/dL [facility] Creatinine 0.69(L) 0.70 - 1.20 mg/dL [facility] Sodium 136 135 - 145 mmol/L [facility] Potassium 3.6 3.5 - 5.0 mmol/L [facility] Comment: Please note: ??Patients with WBC >100,000 may have falsely elevated Potassium levels. ??For accurate Potassium quantification in these patients send serum separator tube (gold top) for subsequent determinations. ??Contact the Clinical Chemistry Laboratory if there are any questions. Chloride 102 98 - 107 mmol/L [facility] Carbon Dioxide 23 22 - 31 mmol/L [facility] Anion Gap 11 5 - 15 mmol/L [facility] Calcium 8.6 8.5 - 10.5 mg/dL [facility] Est Glomerular Filtration Rate 95 >=60 mL/min/1. 73 m?? [facility] Comment: This patient's estimated GFR was [...] Agency Comment Spec In Lab Mara Thomasfield TELEX OPERATOR CHEMISTRY ORDERABL ES [facility] [place] [address] * (ABNORMAL) Basic Metabolic Panel (non-fasting) (05/21/2023 5:06 AM EDT) Glucose 87 65 - 199 mg/dL [facility] Comment:Diabetes: >=200 mg/d L plus symptoms Blood Urea Nitrogen 25(H) 8 - 18 mg/dL [facility] Creatinine 0.84 0.70 - 1.20 mg/dL [facility] Sodium 136 135 - 145 mmol/L [facility] Potassium 3.6 3.5 - 5.0 mmol/L [facility] Comment: Please note: ??Patients with WBC >100,000 may have falsely elevated Potassium levels. ??For accurate Potassium quantification in these patients send serum separator tube (gold top) for subsequent determinations. ??Contact the Clinical Chemistry Laboratory if there are any questions. Chloride 102 98 - 107 mmol/L [facility] Carbon Dioxide 26 22 - 31 mmol/L [facility] Anion Gap 8 5 - 15 mmol/L [facility] Calcium 8.9 8.5 - 10.5 mg/dL [facility] Est Glomerular Filtration Rate 76 >=60 mL/min/1. 73 m?? [facility] Comment: This patient's estimated GFR was [...] Narrative Resulting Agency Comment Spec In Lab [facility] TELEX OPERATOR CHEMISTRY ORDERABL ES Performing Organization Address [facility] Co de Phone Number [facility] [place] [address] * Lavender Tube HOLD (05/20/2023 2:52 AM EDT) Lavender Hold Sample in lab. [facility] Blood Venous Draw / Unknown 05/20/2023 2:52 AM EDT 05/20/2023 3:04 AM EDT [facility] TELEX OPERATOR HEMATOLOGY ORDERAB LES Performing Organization Address City/[facility] Co de Phone Number [facility] [place] [address] * (ABNORMAL) Basic Metabolic Panel (non-fasting) (05/20/2023 2:52 AM EDT) Glucose 152 65 - 199 mg/dL [facility] Comment:Diabetes: >=200 mg/d L plus symptoms Blood Urea Nitrogen 33(H) 8 - 18 mg/dL [facility] Creatinine 0.82 0.70 - 1.20 mg/dL [facility] Sodium 137 135 - 145 mmol/L [facility] Potassium 3.7 3.5 - 5.0 mmol/L [facility] Comment: Please note: ??Patients with WBC >100,000 may have falsely elevated Potassium levels. ??For accurate Potassium quantification in these patients send serum separator tube (gold top) for subsequent determinations. ??Contact the Clinical Chemistry Laboratory if there are any questions. Chloride 99 98 - 107 mmol/L [facility] Carbon Dioxide 22 22 - 31 mmol/L [facility] Anion Gap 16(H) 5 - 15 mmol/L [facility] Calcium 9.0 8.5 - 10.5 mg/dL [facility] Est Glomerular Filtration Rate 78 >=60 mL/min/1. 73 m?? [facility] Comment: This patient's estimated GFR was [...] Agency Comment Spec In Lab Mara Serrano TELEX OPERATOR CHEMISTRY ORDERABL ES [facility] [place] [address] * (ABNORMAL) Potassium (05/20/2023 2:52 AM EDT) Potassium 3.4(L) 3.5 - 5.0 mmol/L [facility] Comment: Please note: ??Patients [...] Lab Mara Serrano APRN CHEMISTRY ORDERABL ES [facility] [address] * XR Chest PA & Lateral (Generic) [...] please contact the health post acute care registered nurse that requested your [...] questions please contactthe health post acute care registered nurse that requested your imaging first. Electronically signed by: Chyna Johnson MD, [facility]([phone]), at 05/19/2023 2:19 PM Alirio Hudson MD IMG DX ORDERABLES * (ABNORMAL) Basic Metabolic Panel (non-fasting) (05/19/2023 5:49 AM EDT) Glucose 93 65 - 199 mg/dL [facility] Comment:Diabetes: >=200 mg/d L plus symptoms Blood Urea Nitrogen 45(H) 8 - 18 mg/dL [facility] Creatinine 1.02 0.70 - 1.20 mg/dL [facility] Sodium 138 135 - 145 mmol/L [facility] Potassium 3.9 3.5 - 5.0 mmol/L [facility] Comment: Please note: ??Patients with WBC >100,000 may have falsely elevated Potassium levels. ??For accurate Potassium quantification in these patients send serum separator tube (gold top) for subsequent determinations. ??Contact the Clinical Chemistry Laboratory if there are any questions. Chloride 102 98 - 107 mmol/L [facility] Carbon Dioxide 26 22 - 31 mmol/L [facility] Anion Gap 10 5 - 15 mmol/L [facility] Calcium 9.7 8.5 - 10.5 mg/dL [facility] Est Glomerular Filtration Rate 60 >=60 mL/min/1. 73 m?? [facility] Comment: This patient's estimated GFR was [...] Agency Comment Spec In Lab Mara Maggie TELEX OPERATOR CHEMISTRY ORDERABL ES [facility] [address] * IR Chest Tube Placement Right (05/18/2023 [...] MD 05/18/2023 Alirio Hudson MD [facility] IR ORDERABLES * (ABNORMAL) Basic Metabolic Panel (non-fasting) (05/18/2023 2:54 AM EDT) Glucose 95 65 - 199 mg/dL [facility] Comment:Diabetes: >=200 mg/d L plus symptoms Blood Urea Nitrogen 71(H) 8 - 18 mg/dL [facility] Comment:result rechecked-[facility] Creatinine 1.64(H) 0.70 - 1.20 mg/dL [facility] Comment:result rechecked-[facility] Sodium 137 135 - 145 mmol/L [facility] Potassium 3.7 3.5 - 5.0 mmol/L [facility] Comment: Please note: ??Patients with WBC >100,000 may have falsely elevated Potassium levels. ??For accurate Potassium quantification in these patients send serum separator tube (gold top) for subsequent determinations. ??Contact the Clinical Chemistry Laboratory if there are any questions. Chloride 100 98 - 107 mmol/L [facility] Carbon Dioxide 24 22 - 31 mmol/L [facility] Anion Gap 13 5 - 15 mmol/L [facility] Calcium 9.7 8.5 - 10.5 mg/dL [facility] Est Glomerular Filtration Rate 34(L) >=60 mL/min/1. 73 m?? [facility] Comment: This patient's estimated GFR was [...] Lab Mara Serrano APRN CHEMISTRY ORDERABL ES [facility] [place] [address] * XR Chest PA & Lateral (Generic) [...] please contact the health post acute care registered nurse that requested your imaging first. ? Electronically signed by: Ghassan Reyes MD, [facility] ??([phone]), at 05/17/2023 11:46 AM Narrative 05/17/2023 11:46 [...] questions please contactthe health post acute care registered nurse that requested your imaging first. Electronically signed by: Ghassan Reyes MD, [facility]([phone]), at 05/17/2023 11:46 AM Alirio Hudson MD IMG DX ORDERABLES * (ABNORMAL) Comprehensive metabolic panel (non-fasting) (05/17/2023 4:35 AM EDT) Glucose 89 65 - 199 mg/dL [facility] Comment:Diabetes: >=200 mg/d L plus symptoms Blood Urea Nitrogen 97(H) 8 - 18 mg/dL [facility] Creatinine 2.97(H) 0.70 - 1.20 mg/dL [facility] Comment:result rechecked-JSJ Sodium 135 135 - 145 mmol/L [facility] Potassium 4.1 3.5 - 5.0 mmol/L [facility] Comment: Please note: ??Patients with WBC >100,000 may have falsely elevated Potassium levels. ??For accurate Potassium quantification in these patients send serum separator tube (gold top) for subsequent determinations. ??Contact the Clinical Chemistry Laboratory if there are any questions. Chloride 97(L) 98 - 107 mmol/L [facility] Carbon Dioxide 22 22 - 31 mmol/L [facility] Anion Gap 16(H) 5 - 15 mmol/L [facility] Calcium 9.6 8.5 - 10.5 mg/dL [facility] Protein, Total 6.5 6.1 - 8.0 g/dL [facility] Albumin 3.7 3.2 - 5.2 g/dL [facility] Aspartate Aminotransferase 58(H) 0 - 30 unit/L [facility] Alanine Aminotransferase 66(H) 0 - 30 unit/L [facility] Alkaline Phosphatase 86 35 - 105 unit/L [facility] Bilirubin, Total 0.6 0.2 - 1.3 mg/dL [facility] Est Glomerular Filtration Rate 17(L) >=60 mL/min/1. 73 m?? [facility] Comment: This patient's estimated [...] ORDERABLE S Performing Organization Address [facility] de Phone Number [facility] [place] [address] * Potassium (05/16/2023 11:15 PM EDT) Potassium 3.7 3.5 - 5.0 mmol/L [facility] Comment: Please note: ??Patients with WBC [...] ORDERABLE S Performing Organization Address [facility] Co de Phone Number [facility] [place] [address] * Magnesium (05/16/2023 5:22 PM EDT) Magnesium 0.96 0.69 - 1.07 mmol/L [facility] Blood 05/16/2023 5:22 PM EDT 05/16/2023 5:27 PM EDT Narrative Resulting Agency Comment Spec In Lab Alirio Hudson MD CHEMISTRY ORDERABLE S [facility] [address] * (ABNORMAL) Basic Metabolic Panel (non-fasting) (05/16/2023 5:22 PM EDT) Glucose 106 65 - 199 mg/dL [facility] Comment:Diabetes: >=200 mg/d L plus symptoms Blood Urea Nitrogen 103(H) 8 - 18 mg/dL [facility] Creatinine 3.91(H) 0.70 - 1.20 mg/dL [facility] Comment:result rechecked-imm Sodium 132(L) 135 - 145 mmol/L [facility] Potassium 3.6 3.5 - 5.0 mmol/L [facility] Comment: Please note: ??Patients with WBC >100,000 may have falsely elevated Potassium levels. ??For accurate Potassium quantification in these patients send serum separator tube (gold top) for subsequent determinations. ??Contact the Clinical Chemistry Laboratory if there are any questions. Chloride 92(L) 98 - 107 mmol/L [facility] Carbon Dioxide 22 22 - 31 mmol/L [facility] Anion Gap 18(H) 5 - 15 mmol/L [facility] Calcium 9.7 8.5 - 10.5 mg/dL [facility] Est Glomerular Filtration Rate 12(L) >=60 mL/min/1. 73 m?? [facility] Comment: This patient's estimated GFR was [...] [facility] Co de Phone Number [facility] [address] * (ABNORMAL) Potassium (05/16/2023 11:43 AM EDT) Potassium 3.3(L) 3.5 - 5.0 mmol/L [facility] Comment: Please note: ??Patients with WBC [...] CHEMISTRY ORDERABLE S Performing Organization Address [facility] Co de Phone Number [facility] [place] [address] * (ABNORMAL) Ferritin (05/16/2023 4:41 AM EDT) [facility] Ferritin 1,813(H) 30 - 400 ng/mL [facility] Comment: Pediatric reference ranges not verified [place] [facility] [place] interpret with caution. Reference ranges for females greater than 50 years of age approach values for men, i.e., 30-400 ng/mL. Blood 05/16/2023 4:41 AM EDT 05/16/2023 4:54 AM EDT Narrative Resulting Agency Comment Spec In Lab Kristopher Ayoub MD CHEMISTRY ORDERABLES Performing Organization Address [facility] Co de Phone Number [facility] [place] [address] * (ABNORMAL) PTH (05/16/2023 4:41 AM EDT) Pathologist [facility] [place] Parathyroid Hormone 120(H) 15 - 65 pg/mL [facility] Blood 05/16/2023 4:41 AM EDT 05/16/2023 4:54 AM EDT Narrative Resulting Agency Comment Spec In Lab Kristopher Ayoub MD CHEMISTRY ORDERABLES [facility] [place] [address] * Vitamin D, 25-Hydroxy (05/16/2023 4:41 AM EDT) Vitamin D Total 25 OH 33 21 - 100 ng/mL [facility] Vit D Interp Sufficient [facility] Blood 05/16/2023 4:41 AM EDT 05/16/2023 4:54 AM EDT Narrative Resulting Agency Comment Spec In Lab Kristopher Ayoub MD CHEMISTRY ORDERABLES Performing Organization Address [facility] Co de Phone Number [facility] [place] [address] * (ABNORMAL) Blood Gas Venous ([facility]) (05/16/2023 4:22 AM EDT) pH, Venous 7.41 7.32 - 7.42 [facility] PCO2, Venous 32(L) 41 - 51 mmHg [facility] PO2, Venous 73(H) 25 - 40 mmHg [facility] Bicarbonate, Venous 19.6 mmol/L [facility] Base Excess, Venous -5.1 mmol/L [facility] Hgb Blood Gas 9.7(L) 11.7 - 15.5 g/dL [facility] Oxyhemoglobin, Venous 92.8 % [facility] Carboxyhemoglob in, Venous 0.1 % [facility] Comment: Nonsmokers: 0.5-1.5% COHB Smokers: Variable, but usually less than 10% Toxic: 20-30% COHB Lethal: Greater than 60% COHB Methemoglobin, Venous 0.3 <=1.5 % [facility] Na Whole Blood 130(L) 135 - 145 mmol/L [facility] K Whole Blood 3.7 3.5 - 5.0 mmol/L [facility] Comment: Please note: Patients with WBC >100,000 may have falsely elevated Potassium levels. Contact the Clinical Chemistry Laboratory if there are any questions. ICa Whole Blood 1.15 1.15 - 1.33 mmol/L [facility] Comment: Note: ??Total bilirubin higher than 20 mg/dL may lead to falsely low ionized calcium. CL Whole Blood 95(L) 98 - 107 mmol/L [facility] Gluc Whole Bld 82 65 - 199 mg/dL [facility] Comment:Diabetes: >=200 mg/d L plus symptoms Lactate WB 1.1 0.5 - 2.2 mmol/L [facility] Blood Gas Source Venous [facility] Blood Venous Draw / Unknown 05/16/2023 4:22 AM EDT 05/16/2023 4:31 AM EDT Narrative Resulting Agency Comment Spec In Lab Bonita TOBAR CHEMISTRY ORDERABLES Performing Organization Address City/State/[facility] Co de Phone Number [facility] [address] * (ABNORMAL) Differential, Automated (05/16/2023 4:20 AM EDT) Neutrophil % 84.1 % [facility] Neutrophil Absolute 6.22(H) 1.70 - 6.10 x10(3)/mc L [facility] Lymph % 5.8 % [facility] Lymphocytes Abs 0.4(L) 0.9 - 3.2 x10(3)/mc L [facility] Monocyte % 8.8 % [facility] Monocyte Abs 0.6 0.3 - 0.9 x10(3)/mc L [facility] Eos % 0.4 % [facility] Eosinophils Abs 0.0 0.0 - 0.4 x10(3)/mc L [facility] Basophil % 0.0 % [facility] Baso Absolute 0.0 0.0 - 0.1 x10(3)/mc L [facility] Immature Gran % 0.90 % [facility] Comment: Immature granulocytes(IG's)percentage and absolute count will include metamyelocytes, myelocytes, and promyelocytes. Blood smears from CBCs yielding IG's will be scanned manually for concordance. If this scan disagrees with the automated IG or if promyelocytes are noted, a manual differential will be performed. Immature Gran Absolute 0.07(H) 0.00 - 0.04 x10(3)/mc L [facility] Blood 05/16/2023 4:20 AM EDT 05/16/2023 4:29 AM EDT Narrative Resulting Agency Comment Spec In Lab James Agustin MD HEMATOLOGY ORDER JODIE Performing Organization Address City/[facility]/ZIP Co de Phone Number [facility] [place] [address] * (ABNORMAL) Hemogram (05/16/2023 4:20 AM EDT) White Blood Cell 7.4 4.0 - 9.5 x10(3)/ L [facility] Red Blood Cell 2.40(L) 4.00 - 5.21 x10(6)/mc L [facility] Hemoglobin 7.8(L) 11.7 - 15.5 g/dL [facility] Hematocrit 22.5(L) 35.7 - 45.8 % [facility] Mean Cell Volume 93.8 82.6 - 94.4 fL [facility] Mean Cell Hemoglobin 32.5(H) 27.1 - 32.0 pg [facility] Mean Cell Hemoglobin Concentration 34.7 31.7 - 35.0 g/dL [facility] Platelet 120(L) 145 - 357 x10(3)/mc L [facility] RDW Standard Deviation 42.9 37.0 - 46.0 fL [facility] RDW coefficient of variation 12.9 11.5 - 14.1 % [facility] Mean Platelet Volume 11.3 7.6 - 12.9 fL [facility] NRBC% auto 0.7 % [facility] NRBC Absolute 0.050(H) 0.000 - 0.000 x10(3)/mc L [facility] Blood 05/16/2023 4:20 AM EDT 05/16/2023 4:29 AM EDT Narrative Resulting Agency Comment Spec In Lab James Agustin MD HEMATOLOGY ORDER JODIE Performing Organization Address City/[facility]/ZIP Co de Phone Number [facility] [place] [address] * (ABNORMAL) Basic Metabolic Panel (non-fasting) (05/16/2023 4:20 AM EDT) Glucose 89 65 - 199 mg/dL [facility] Comment:Diabetes: >=200 mg/d L plus symptoms Blood Urea Nitrogen 108(H) 8 - 18 mg/dL [facility] Creatinine 4.74(H) 0.70 - 1.20 mg/dL [facility] Comment:result rechecked-OLIVA Sodium 132(L) 135 - 145 mmol/L [facility] Potassium 3.9 3.5 - 5.0 mmol/L [facility] Comment: Please note: ??Patients with WBC >100,000 may have falsely elevated Potassium levels. ??For accurate Potassium quantification in these patients send serum separator tube (gold top) for subsequent determinations. ??Contact the Clinical Chemistry Laboratory if there are any questions. Chloride 95(L) 98 - 107 mmol/L [facility] Carbon Dioxide 18(L) 22 - 31 mmol/L [facility] Anion Gap 19(H) 5 - 15 mmol/L [facility] Calcium 9.2 8.5 - 10.5 mg/dL [facility] Est Glomerular Filtration Rate 10(L) >=60 mL/min/1. 73 m?? [facility] Comment: This patient's estimated GFR was [...] Lab Alirio Hudson MD CHEMISTRY ORDERABLE S [facility] [address] * (ABNORMAL) Iron and TIBC (05/16/2023 4:20 AM EDT) Iron 31 30 - 150 mcg/dL [facility] TIBC 259 250 - 450 mcg/dL [facility] Iron Saturation 12(L) 20 - 50 % [facility] Blood 05/16/2023 4:20 AM EDT 05/16/2023 4:29 AM EDT Narrative Resulting Agency Comment Spec In Lab Kristopher Ayoub MD CHEMISTRY ORDERABLES [facility] [place] [address] * (ABNORMAL) Basic Metabolic Panel (non-fasting) (05/15/2023 12:50 AM EDT) Glucose 101 65 - 199 mg/dL [facility] Comment:Diabetes: >=200 mg/d L plus symptoms Blood Urea Nitrogen 109(H) 8 - 18 mg/dL [facility] Creatinine 5.62(H) 0.70 - 1.20 mg/dL [facility] Comment:result rechecked-[place] Sodium 131(L) 135 - 145 mmol/L [facility] Comment:result rechecked-KS Potassium 3.7 3.5 - 5.0 mmol/L [facility] Comment: result rechecked-KS Please note: ??Patients with WBC >100,000 may have falsely elevated Potassium levels. ??For accurate Potassium quantification in these patients send serum separator tube (gold top) for subsequent determinations. ??Contact the Clinical Chemistry Laboratory if there are any questions. Chloride 92(L) 98 - 107 mmol/L [facility] Comment:result rechecked-[place] Carbon Dioxide 18(L) 22 - 31 mmol/L [facility] Comment:result rechecked-[place] Anion Gap 21(H) 5 - 15 mmol/L [facility] Calcium 8.9 8.5 - 10.5 mg/dL [facility] Est Glomerular Filtration Rate 8(L) >=60 mL/min/1. 73 m?? [facility] Comment: This patient's estimated [...] [facility] Co de Phone Number [facility] [place] [address] * (ABNORMAL) Hemogram (05/15/2023 12:50 AM EDT) White Blood Cell 9.1 4.0 - 9.5 x10(3)/mc L [facility] Red Blood Cell 2.19(L) 4.00 - 5.21 x10(6)/mc L [facility] Hemoglobin 7.2(L) 11.7 - 15.5 g/dL [facility] Hematocrit 20.6(L) 35.7 - 45.8 % [facility] Mean Cell Volume 94.1 82.6 - 94.4 fL [facility] Mean Cell Hemoglobin 32.9(H) 27.1 - 32.0 pg [facility] Mean Cell Hemoglobin Concentration 35.0 31.7 - 35.0 g/dL [facility] Platelet 109(L) 145 - 357 x10(3)/mc L [facility] RDW Standard Deviation 43.6 37.0 - 46.0 fL [facility] RDW coefficient of variation 12.9 11.5 - 14.1 % [facility] Mean Platelet Volume 10.4 7.6 - 12.9 fL [facility] NRBC% auto 2.1 % [facility] NRBC Absolute 0.190(H) 0.000 - 0.000 x10(3)/mc L [facility] Blood 05/15/2023 12:5 0 AM EDT 05/15/2023 12:52 AM EDT Narrative Resulting Agency Comment Spec In Lab Alirio Hudson MD HEMATOLOGY ORDERABL ES [facility] [address] [place] [address] * (ABNORMAL) BLOOD GAS 2 VENOUS (05/15/2023 12:49 AM EDT) pH, Venous 7.33 7.32 - 7.42 [facility] PCO2, Venous 37(L) 41 - 51 mmHg [facility] PO2, Venous 34 25 - 40 mmHg [facility] Bicarbonate, Venous 19.1 mmol/L [facility] Base Excess, Venous -6.8 mmol/L [facility] Hgb Blood Gas 10.8(L) 11.7 - 15.5 g/dL [facility] Oxyhemoglobin, Venous 58.1 % [facility] Carboxyhemoglob in, Venous 0.3 % [facility] Comment: Nonsmokers: 0.5-1.5% COHB Smokers: Variable, but usually less than 10% Toxic: 20-30% COHB Lethal: Greater than 60% COHB Methemoglobin, Venous 0.6 <=1.5 % [facility] Na Whole Blood 136 135 - 145 mmol/L [facility] K Whole Blood 3.7 3.5 - 5.0 mmol/L [facility] Comment: Please note: Patients with WBC >100,000 may have falsely elevated Potassium levels. Contact the Clinical Chemistry Laboratory if there are any questions. ICa Whole Blood 1.12(L) 1.15 - 1.33 mmol/L [facility] Comment: Note: ??Total bilirubin higher than 20 mg/dL may lead to falsely low ionized calcium. CL Whole Blood 95(L) 98 - 107 mmol/L [facility] Gluc Whole Bld 101 65 - 199 mg/dL [facility] Comment:Diabetes: >=200 mg/d L plus symptoms Lactate WB 1.3 0.5 - 2.2 mmol/L [facility] Flow, Mike 1.0 LPM [facility] Blood Gas Source Venous [facility] Blood 05/15/2023 12:4 9 AM EDT 05/15/2023 12:49 AM EDT Alirio Hudson MD POINT OF CARE TEST ORDERABLES Performing Organization Address City/State/[facility] Co de Phone Number [facility] [place] [address] * US Retroperitoneal Complete (05/14/2023 3:53 PM [...] by: Hayden Robledo MD, [facility] ([phone]), at 05/14/2023 4:32 PM Thank you for letting us participate in the care of this patient. If you are a health care provider and have any questions regarding this report, please contact the number above. For patients who have questions, please contact the health post acute care registered nurse that requested your imaging first. ? Hayden Robledo, Staff Physician Electronically Signed Final Report ?? 05/14/2023 04:39 pm Narrative 05/14/2023 4:39 PM EDT Renal ? (Signed Final 05/14/2023 04:39 pm) PATIENT INFO: ID #: ? [id number] ?: ??[birth year] (67 yrs)(F) Name: ? PURNIMA THACKER ?Visit Date: 05/14/2023 03:44 pm PERFORMED BY: Attending: ?Meena CULP, Hayden Stafford Resident: ? Nell CULP, Anand August Performed By: ? Omer JIN, Consuelo Referred By: ?ALIRIO HUDSON Location: ? [place] SERVICE(S) PROVIDED: URETRO - Retroperitoneal Complete - [id number] ? [id number] INDICATIONS: [place]ANS COMPARISON: CT: Abdomen/Pelvis 05/11/23 RIGHT [...] 05/14/2023 04:39 pm) PATIENT INFO: ID #: [id number] : [birth year] (67 yrs)(F) Name: PURNIMA THACKER Visit Date: 05/14/2023 03:44 pm PERFORMED BY: Attending: Hayden Robledo MD Resident: Anand Camejo MD Performed By: Consuelo Tello RDMS Referred By: ALIRIO HUDSON Location: [place] SERVICE(S) PROVIDED: URETRO - Retroperitoneal Complete - [id number] INDICATIONS: EVANS COMPARISON: CT: Abdomen/Pelvis 05/11/23 RIGHT [...] by: Hayden Robledo MD, [facility] ([phone]), at 05/14/2023 4:32 PM Thank you for letting us participate in the care of this patient. If you are a health care provider and have any questions regarding this report, please contact the number above. For patients who have questions, please contact the health post acute care registered nurse that requested your imaging first. Hayden Robledo, Staff Physician Electronically Signed Final Report 05/14/2023 04:39 pm Alirio Hudson MD IMG US GEN ORDERABL ES * CK (05/14/2023 3:17 PM EDT) Creatine Kinase 123 0 - 160 unit/L [facility] Blood 05/14/2023 3:17 PM EDT 05/14/2023 3:31 PM EDT Narrative Resulting Agency Comment Spec In Lab Alirio Hudson MD CHEMISTRY ORDERABLE S [facility] [place] [address] * (ABNORMAL) Uric acid (05/14/2023 3:17 PM EDT) Uric Acid 14.9(H) 2.5 - 6.5 mg/dL [facility] Blood 05/14/2023 3:17 PM EDT 05/14/2023 3:31 PM EDT Narrative Resulting Agency Comment Spec In Lab Alirio Hudson MD CHEMISTRY ORDERABLE S Performing Organization Address [facility] Co de Phone Number [facility] [place] [address] * (ABNORMAL) Osmolality (05/14/2023 3:17 PM EDT) Pathologist [facility] [place] Osmolality 311(H) 275 - 295 mOsm/kg [facility] Blood 05/14/2023 3:17 PM EDT 05/14/2023 3:31 PM EDT Narrative Resulting Agency Comment Spec In Lab Alirio Hudson MD CHEMISTRY ORDERABLE S Performing Organization Address [facility] de Phone Number [facility] [place] [address] * (ABNORMAL) Differential, Automated (05/14/2023 1:10 AM EDT) Pathologist [facility] [place] Neutrophil % 87.2 % [facility] Neutrophil Absolute 9.74(H) 1.70 - 6.10 x10(3)/mc L [facility] Lymph % 3.9 % [facility] Lymphocytes Abs 0.4(L) 0.9 - 3.2 x10(3)/mc L [facility] Monocyte % 7.9 % [facility] Monocyte Abs 0.9 0.3 - 0.9 x10(3)/mc L [facility] Eos % 0.0 % [facility] Eosinophils Abs 0.0 0.0 - 0.4 x10(3)/mc L [facility] Basophil % 0.1 % [facility] Baso Absolute 0.0 0.0 - 0.1 x10(3)/mc L [facility] Immature Gran % 0.90 % [facility] Comment: Immature granulocytes(IG's)percentage and absolute count will include metamyelocytes, myelocytes, and promyelocytes. Blood smears from CBCs yielding IG's will be scanned manually for concordance. If this scan disagrees with the automated IG or if promyelocytes are noted, a manual differential will be performed. Immature Gran Absolute 0.10(H) 0.00 - 0.04 x10(3)/mc L [facility] Blood 05/14/2023 1:10 AM EDT 05/14/2023 1:24 AM EDT Narrative Resulting Agency Comment Spec In Lab Bonita TOBAR HEMATOLOGY ORDERABLE S [facility] [place] [address] * (ABNORMAL) Hemogram (05/14/2023 1:10 AM EDT) White Blood Cell 11.2(H) 4.0 - 9.5 x10(3)/mc L [facility] Red Blood Cell 2.19(L) 4.00 - 5.21 x10(6)/mc L [facility] Hemoglobin 7.2(L) 11.7 - 15.5 g/dL [facility] Hematocrit 20.3(L) 35.7 - 45.8 % [facility] Mean Cell Volume 92.7 82.6 - 94.4 fL [facility] Mean Cell Hemoglobin 32.9(H) 27.1 - 32.0 pg [facility] Mean Cell Hemoglobin Concentration 35.5(H) 31.7 - 35.0 g/dL [facility] Platelet 112(L) 145 - 357 x10(3)/mc L [facility] RDW Standard Deviation 41.4 37.0 - 46.0 fL [facility] RDW coefficient of variation 12.5 11.5 - 14.1 % [facility] Mean Platelet Volume 10.4 7.6 - 12.9 fL [facility] NRBC% auto 1.5 % [facility] NRBC Absolute 0.170(H) 0.000 - 0.000 x10(3)/mc L [facility] Blood 05/14/2023 1:10 AM EDT 05/14/2023 1:24 AM EDT Narrative Resulting Agency Comment Spec In Lab Bonita TOBAR HEMATOLOGY ORDERABLE S [facility] [address] [place] [address] * (ABNORMAL) Comprehensive metabolic panel (non-fasting) (05/14/2023 1:10 AM EDT) Glucose 120 65 - 199 mg/dL [facility] Comment:Diabetes: >=200 mg/d L plus symptoms Blood Urea Nitrogen 98(H) 8 - 18 mg/dL [facility] Creatinine 4.80(H) 0.70 - 1.20 mg/dL [facility] Comment:result rechecked-ssc Sodium 132(L) 135 - 145 mmol/L [facility] Potassium 4.1 3.5 - 5.0 mmol/L [facility] Comment: Please note: ??Patients with WBC >100,000 may have falsely elevated Potassium levels. ??For accurate Potassium quantification in these patients send serum separator tube (gold top) for subsequent determinations. ??Contact the Clinical Chemistry Laboratory if there are any questions. Chloride 94(L) 98 - 107 mmol/L [facility] Carbon Dioxide 18(L) 22 - 31 mmol/L [facility] Anion Gap 20(H) 5 - 15 mmol/L [facility] Calcium 8.5 8.5 - 10.5 mg/dL [facility] Protein, Total 5.8(L) 6.1 - 8.0 g/dL [facility] Albumin 3.6 3.2 - 5.2 g/dL [facility] Aspartate Aminotransferase 319(H) 0 - 30 unit/L [facility] Alanine Aminotransferase 437(H) 0 - 30 unit/L [facility] Alkaline Phosphatase 86 35 - 105 unit/L [facility] Bilirubin, Total 0.4 0.2 - 1.3 mg/dL [facility] Est Glomerular Filtration Rate 9(L) >=60 mL/min/1. 73 m?? [facility] Comment: This patient's estimated [...] ORDERABLE S Performing Organization Address [facility] Co de Phone Number [facility] [place] [address] * APTT (05/13/2023 10:15 AM EDT) Partial Thromboplastin Time 27 25 - 37 sec [facility] Comment: The PTT is NOT appropriate for heparin monitoring. Use the Anti-Xa level for heparin monitoring (HEP UFH) or LMWH monitoring (HEP LMW). A PTT less than 37 seconds generally indicates adequate hemostasis. Blood 05/13/2023 10:1 5 AM EDT 05/13/2023 10:46 AM EDT Narrative Resulting Agency Comment Spec In Lab Alirio Hudson MD HEMATOLOGY ORDERABL ES Performing Organization Address [facility] Co de Phone Number [facility] [place] [address] * (ABNORMAL) Prothrombin Time (05/13/2023 10:15 AM EDT) Prothrombin Time 14.6(H) 9.4 - 12.5 sec [facility] International Normalization Ratio 1.3 [facility] Comment: An INR <2.0 indicates adequate [...] MD HEMATOLOGY ORDERABL ES Performing Organization Address City/[facility] Co de Phone Number [facility] [place] [address] * EKG 12 Lead (05/13/2023 9:22 AM EDT) Ventricular rate 92 BPM MUSE SYSTEM Atrial Rate 92 BPM MUSE SYSTEM P-R Interval 140 ms MUSE SYSTEM QRS Duration 104 ms MUSE SYSTEM Q-T Interval 384 ms MUSE SYSTEM QTC Calculated (Bezet) 474 ms MUSE SYSTEM Calculated P [place] 33 degrees MUSE SYSTEM Calculated R [place] 41 degrees MUSE SYSTEM Calculated T [place] -35 degrees MUSE SYSTEM INTERPRETATION Sinus rhythm with frequent Premature ventricular complexes Septal infarct , age undetermined ST & T wave abnormality, consider lateral ischemia Abnormal ECG When compared with ECG of 12-MAY-2023 10:10, Premature ventricular complexes are now Present I personally reviewed the tracing and edited the fellows interpretation Confirmed by fellow MD Anitha, Carissa ([id number]) on 05/13/2023 3:25:30 PM Confirmed by Maxx Best ([id number]) on 05/13/2023 8:30:56 PM MUSE SYSTEM 05/13/2023 9:22 AM EDT 05/13/2023 8:30 PM EDT Alirio Hudson MD ECG ORDERABLES Performing Organization Address City/[facility]/ZIP Co de Phone Number MUSE SYSTEM * (ABNORMAL) Differential, Automated (05/13/2023 1:15 AM EDT) Neutrophil % 88.1 % [facility] Neutrophil Absolute 7.62(H) 1.70 - 6.10 x10(3)/mc L [facility] Lymph % 3.1 % [facility] Lymphocytes Abs 0.3(L) 0.9 - 3.2 x10(3)/mc L [facility] Monocyte % 7.9 % [facility] Monocyte Abs 0.7 0.3 - 0.9 x10(3)/mc L [facility] Eos % 0.0 % [facility] Eosinophils Abs 0.0 0.0 - 0.4 x10(3)/mc L [facility] Basophil % 0.1 % [facility] Baso Absolute 0.0 0.0 - 0.1 x10(3)/mc L [facility] Immature Gran % 0.80 % [facility] Comment: Immature granulocytes(IG's)percentage and absolute count will include metamyelocytes, myelocytes, and promyelocytes. Blood smears from CBCs yielding IG's will be scanned manually for concordance. If this scan disagrees with the automated IG or if promyelocytes are noted, a manual differential will be performed. Immature Gran Absolute 0.07(H) 0.00 - 0.04 x10(3)/ L [facility] Blood 05/13/2023 1:15 AM EDT 05/13/2023 1:29 AM EDT Narrative Resulting Agency Comment Spec In Lab Lorri TOBAR HEMATOLOGY ORDERABLE S [facility] [place] [address] * (ABNORMAL) Hemogram (05/13/2023 1:15 AM EDT) White Blood Cell 8.6 4.0 - 9.5 x10(3)/mc L [facility] Red Blood Cell 2.37(L) 4.00 - 5.21 x10(6)/mc L [facility] Hemoglobin 7.8(L) 11.7 - 15.5 g/dL [facility] Hematocrit 22.2(L) 35.7 - 45.8 % [facility] Mean Cell Volume 93.7 82.6 - 94.4 fL [facility] Mean Cell Hemoglobin 32.9(H) 27.1 - 32.0 pg [facility] Mean Cell Hemoglobin Concentration 35.1(H) 31.7 - 35.0 g/dL [facility] Platelet 130(L) 145 - 357 x10(3)/mc L [facility] RDW Standard Deviation 41.7 37.0 - 46.0 fL [facility] RDW coefficient of variation 12.5 11.5 - 14.1 % [facility] Mean Platelet Volume 10.2 7.6 - 12.9 fL [facility] NRBC% auto 0.5 % [facility] [facility] NRBC Absolute 0.040(H) 0.000 - 0.000 x10(3)/mc L [facility] Blood 05/13/2023 1:15 AM EDT 05/13/2023 1:29 AM EDT Narrative Resulting Agency Comment Spec In Lab Lorri TOBAR HEMATOLOGY ORDERABLE S [facility] [place] [address] * (ABNORMAL) Hepatic Function Panel (05/13/2023 1:15 AM EDT) Protein, Total 5.5(L) 6.1 - 8.0 g/dL [facility] Albumin 3.0(L) 3.2 - 5.2 g/dL [facility] Aspartate Aminotransferase 792(H) 0 - 30 unit/L [facility] Alanine Aminotransferase 903(H) 0 - 30 unit/L [facility] Alkaline Phosphatase 85 35 - 105 unit/L [facility] Bilirubin, Total 0.5 0.2 - 1.3 mg/dL [facility] Bilirubin, Direct 0.3 0.0 - 0.3 mg/dL [facility] Blood 05/13/2023 1:15 AM EDT 05/13/2023 1:29 AM EDT Narrative Resulting Agency Comment Spec In Lab Alirio Hudson MD CHEMISTRY ORDERABLE S [facility] [place] [address] * (ABNORMAL) Basic Metabolic Panel (non-fasting) (05/13/2023 1:15 AM EDT) Glucose 107 65 - 199 mg/dL [facility] Comment:Diabetes: >=200 mg/d L plus symptoms Blood Urea Nitrogen 82(H) 8 - 18 mg/dL [facility] Creatinine 3.15(H) 0.70 - 1.20 mg/dL [facility] Comment:result rechecked-JSJ Sodium 132(L) 135 - 145 mmol/L [facility] Potassium 3.8 3.5 - 5.0 mmol/L [facility] Comment: Please note: ??Patients with WBC >100,000 may have falsely elevated Potassium levels. ??For accurate Potassium quantification in these patients send serum separator tube (gold top) for subsequent determinations. ??Contact the Clinical Chemistry Laboratory if there are any questions. Chloride 95(L) 98 - 107 mmol/L [facility] Carbon Dioxide 20(L) 22 - 31 mmol/L [facility] Anion Gap 17(H) 5 - 15 mmol/L [facility] Calcium 8.3(L) 8.5 - 10.5 mg/dL [facility] Est Glomerular Filtration Rate 16(L) >=60 mL/min/1. 73 m?? [facility] Comment: This patient's estimated GFR was [...] Lab Alirio Hudson MD CHEMISTRY ORDERABLE S [facility] [address] * (ABNORMAL) BLOOD GAS 2 ARTERIAL (05/12/2023 3:57 PM EDT) pH, Arterial 7.39 7.35 - 7.45 [facility] PCO2, Arterial 33(L) 35 - 45 mmHg [facility] PO2, Arterial 101 85 - 104 mmHg [facility] Bicarbonate, Arterial 19.5(L) 20.0 - 26.0 mmol/L [facility] Base Excess, Arterial -5.5(L) -3.0 - 3.0 mmol/L [facility] Hgb Blood Gas 9.8(L) 11.7 - 15.5 g/dL [facility] Oxyhemoglobin, Arterial 95.2 94.0 - 97.0 % [facility] Carboxyhemoglob in, Arterial 0.2 % [facility] Comment: Nonsmokers: 0.5-1.5% COHB Smokers: Variable, but usually less than 10% Toxic: 20-30% COHB Lethal: Greater than 60% COHB Methemoglobin, Arterial 0.8 <=1.5 % [facility] Na Whole Blood 129(L) 135 - 145 mmol/L [facility] K Whole Blood 3.8 3.5 - 5.0 mmol/L [facility] Comment: Please note: Patients with WBC >100,000 may have falsely elevated Potassium levels. Contact the Clinical Chemistry Laboratory if there are any questions. ICa Whole Blood 1.05(L) 1.15 - 1.33 mmol/L [facility] Comment: Note: ??Total bilirubin higher than 20 mg/dL may lead to falsely low ionized calcium. CL Whole Blood 96(L) 98 - 107 mmol/L [facility] Gluc Whole Bld 178 65 - 199 mg/dL [facility] Comment:Diabetes: >=200 mg/d L plus symptoms. Lactate WB 1.5 0.5 - 2.2 mmol/L [facility] FIO2 Art 40 % [facility] PF Ratio Art 252 [facility] Blood 05/12/2023 3:57 PM EDT 05/12/2023 3:57 PM EDT Alirio Hudson MD POINT OF CARE TEST ORDERABLES [facility] [place] [address] * (ABNORMAL) Coox2 (05/12/2023 2:25 PM EDT) pO2, Coox 37 mmHg [facility] Hgb Blood Gas 9.5(L) 11.7 - 15.5 g/dL [facility] Oxyhemoglobin, Coox 59.9 % [facility] Carboxyhemoglo bin, Coox 0.3 % [facility] Comment: Nonsmokers: 0.5-1.5% COHB Smokers: Variable, but usually less than 10% Toxic: 20-30% COHB Lethal: Greater than 60% COHB Methemoglobin, Coox 0.7 <=1.5 % [facility] Source Coox Mixed Venous [facility] Blood 05/12/2023 2:25 PM EDT 05/12/2023 2:25 PM EDT Alirio Hudson MD POINT OF CARE TEST ORDERABLES [facility] [place] [address] * (ABNORMAL) BLOOD GAS 2 ARTERIAL (05/12/2023 2:23 PM EDT) pH, Arterial 7.37 7.35 - 7.45 [facility] PCO2, Arterial 36 35 - 45 mmHg [facility] PO2, Arterial 102 85 - 104 mmHg [facility] Bicarbonate, Arterial 20.4 20.0 - 26.0 mmol/L [facility] Base Excess, Arterial -4.8(L) -3.0 - 3.0 mmol/L [facility] Hgb Blood Gas 12.7 11.7 - 15.5 g/dL [facility] Oxyhemoglobin, Arterial 95.4 94.0 - 97.0 % [facility] Carboxyhemoglob in, Arterial 0.3 % [facility] Comment: Nonsmokers: 0.5-1.5% COHB Smokers: Variable, but usually less than 10% Toxic: 20-30% COHB Lethal: Greater than 60% COHB Methemoglobin, Arterial 0.7 <=1.5 % [facility] Na Whole Blood 129(L) 135 - 145 mmol/L [facility] K Whole Blood 3.7 3.5 - 5.0 mmol/L [facility] Comment: Please note: Patients with WBC >100,000 may have falsely elevated Potassium levels. Contact the Clinical Chemistry Laboratory if there are any questions. ICa Whole Blood 1.05(L) 1.15 - 1.33 mmol/L [facility] Comment: Note: ??Total bilirubin higher than 20 mg/dL may lead to falsely low ionized calcium. CL Whole Blood 95(L) 98 - 107 mmol/L [facility] Gluc Whole Bld 168 65 - 199 mg/dL [facility] Comment:Diabetes: >=200 mg/d L plus symptoms. Lactate WB 1.8 0.5 - 2.2 mmol/L [facility] FIO2 Art 40 % [facility] PF Ratio Art 255 [facility] Blood 05/12/2023 2:23 PM EDT 05/12/2023 2:23 PM EDT Alirio Hudson MD POINT OF CARE TEST ORDERABLES Performing Organization Address City/State/[facility] Co de Phone Number [facility] [place] [address] * (ABNORMAL) Troponin (05/12/2023 2:05 PM EDT) Troponin-T, High Sensitivity 1,022(H) <=14 ng/L [facility] Comment: This patient's troponin T concentration [...] troponin value can be found in the [facility] Laboratory Test Catalog Troponin - [facility] Laboratory Test Catalog Reference: Fourth Chandler Definition of Myocardial Infarction. Journal of the [place] [employer] 2018;72:5546-3215 Blood 05/12/2023 2:05 PM EDT 05/12/2023 2:14 PM EDT Narrative Resulting Agency Comment Spec In Lab Alirio Hudson MD CHEMISTRY ORDERABLE S [facility] [place] [address] * (ABNORMAL) Hemoglobin (05/12/2023 2:05 PM EDT) Hemoglobin 8.5(L) 11.7 - 15.5 g/dL [facility] Blood 05/12/2023 2:05 PM EDT 05/12/2023 2:14 PM EDT Narrative Resulting Agency Comment Spec In Lab Alirio Hudson MD HEMATOLOGY ORDERABL ES Performing Organization Address [facility] Co de Phone Number [facility] [place] [address] * Potassium (05/12/2023 2:05 PM EDT) Potassium 3.9 3.5 - 5.0 mmol/L [facility] Comment: Please note: ??Patients with WBC [...] MD CHEMISTRY ORDERABLE S Performing Organization Address City/[facility]/ZIP Co de Phone Number [facility] [place] [address] * (ABNORMAL) BLOOD GAS 2 ARTERIAL (05/12/2023 11:05 AM EDT) pH, Arterial 7.34(L) 7.35 - 7.45 [facility] PCO2, Arterial 42 35 - 45 mmHg [facility] PO2, Arterial 73(L) 85 - 104 mmHg [facility] Bicarbonate, Arterial 22.1 20.0 - 26.0 mmol/L [facility] Base Excess, Arterial -3.6(L) -3.0 - 3.0 mmol/L [facility] Hgb Blood Gas 9.3(L) 11.7 - 15.5 g/dL [facility] Oxyhemoglobin, Arterial 89.3(L) 94.0 - 97.0 % [facility] Carboxyhemoglob in, Arterial 0.2 % [facility] Comment: Nonsmokers: 0.5-1.5% COHB Smokers: Variable, but usually less than 10% Toxic: 20-30% COHB Lethal: Greater than 60% COHB Methemoglobin, Arterial 0.9 <=1.5 % [facility] Na Whole Blood 131(L) 135 - 145 mmol/L [facility] K Whole Blood 3.8 3.5 - 5.0 mmol/L [facility] Comment: Please note: Patients with WBC >100,000 may have falsely elevated Potassium levels. Contact the Clinical Chemistry Laboratory if there are any questions. ICa Whole Blood 1.04(L) 1.15 - 1.33 mmol/L [facility] Comment: Note: ??Total bilirubin higher than 20 mg/dL may lead to falsely low ionized calcium. CL Whole Blood 96(L) 98 - 107 mmol/L [facility] Gluc Whole Bld 152 65 - 199 mg/dL [facility] Comment:Diabetes: >=200 mg/d L plus symptoms. Lactate WB 2.8(H) 0.5 - 2.2 mmol/L [facility] FIO2 Art 40 % [facility] PF Ratio Art 182 [facility] Blood 05/12/2023 11:0 5 AM EDT 05/12/2023 11:05 AM EDT Alirio Hudson MD POINT OF CARE TEST ORDERABLES [facility] [place] [address] * (ABNORMAL) BLOOD GAS 2 ARTERIAL (05/12/2023 10:14 AM EDT) pH, Arterial 7.18(Criti gabrielle) 7.35 - 7.45 [facility] Comment:Noted by instrument worker. PCO2, Arterial 45 35 - 45 mmHg [facility] PO2, Arterial 186(H) 85 - 104 mmHg [facility] Bicarbonate, Arterial 16.2(L) 20.0 - 26.0 mmol/L [facility] Base Excess, Arterial -12.2(L) -3.0 - 3.0 mmol/L [facility] Hgb Blood Gas 10.0(L) 11.7 - 15.5 g/dL [facility] Oxyhemoglobin, Arterial 97.0 94.0 - 97.0 % [facility] Carboxyhemoglob in, Arterial 0.2 % [facility] Comment: Nonsmokers: 0.5-1.5% COHB Smokers: Variable, but usually less than 10% Toxic: 20-30% COHB Lethal: Greater than 60% COHB Methemoglobin, Arterial 0.9 <=1.5 % [facility] Na Whole Blood 129(L) 135 - 145 mmol/L [facility] K Whole Blood 3.6 3.5 - 5.0 mmol/L [facility] Comment: Please note: Patients with WBC >100,000 may have falsely elevated Potassium levels. Contact the Clinical Chemistry Laboratory if there are any questions. ICa Whole Blood 1.10(L) 1.15 - 1.33 mmol/L [facility] Comment: Note: ??Total bilirubin higher than 20 mg/dL may lead to falsely low ionized calcium. CL Whole Blood 97(L) 98 - 107 mmol/L [facility] Gluc Whole Bld 161 65 - 199 mg/dL [facility] Comment:Diabetes: >=200 mg/d L plus symptoms. Lactate WB 3.3(H) 0.5 - 2.2 mmol/L [facility] FIO2 Art 100 % [facility] PF Ratio Art 186 [facility] Blood 05/12/2023 10:1 4 AM EDT 05/12/2023 10:14 AM EDT Alirio Hudson MD POINT OF CARE TEST ORDERABLES Performing Organization Address [facility] [place] [address] * EKG 12 Lead (05/12/2023 10:10 AM EDT) Ventricular rate 116 BPM MUSE SYSTEM Atrial Rate 116 BPM MUSE SYSTEM P-R Interval 158 ms MUSE SYSTEM QRS Duration 114 ms MUSE SYSTEM Q-T Interval 348 ms MUSE SYSTEM QTC Calculated (Bezet) 483 ms MUSE SYSTEM Calculated P [place] 37 degrees MUSE SYSTEM Calculated R [place] 31 degrees MUSE SYSTEM Calculated T [place] -138 degrees MUSE SYSTEM INTERPRETATION Sinus tachycardia [...] interpretation Confirmed by fellow MD Anuja, Jim ([id number]) on 05/12/2023 1:04:20 PM Confirmed by MD Mono, Eleni ([id number]) on 05/12/2023 9:28:34 PM MUSE SYSTEM 05/12/2023 10:1 0 AM EDT 05/12/2023 9:28 PM EDT Alirio Hudson MD ECG ORDERABLES Performing Organization Address [facility]/ZIP Co de Phone Number MUSE SYSTEM * [...] please contact the health post acute care registered nurse that requested your imaging first. ? Electronically signed by: Chyna Johnson MD, [facility] ??([phone]), at 05/12/2023 10:08 AM Narrative 05/12/2023 10:08 AM EDT EXAMINATION: XR CHEST ONE VIEW CLINICAL HISTORY: Post TAVR TECHNIQUE: 1 view of the chest COMPARISON: Chest radiograph from earlier today FINDINGS: Interval placement of endotracheal tube with tip terminating 2 cm above the shira. Interval placement of enteric tube projecting along the expected course of the esophagus and outside the yyyzz-zj-ctuj. Interval retraction of right IJ approach pulmonary [...] expected course ofthe esophagus and outside the szsos-ms-rlrc. Interval retraction of right IJ approach pulmonary [...] questions please contactthe health post acute care registered nurse that requested your imaging first. Electronically signed by: Chyna Johnson MD, [facility]([phone]), at 05/12/2023 10:08 AM Alirio Hudson MD IMG DX ORDERABLES * ECHO LMTD W/O CONTRAST W LMTD SPEC DOPP COLOR DOPP (05/12/2023 9:23 AM EDT) [facility] EF 20 HEARTLAB SYSTEM Anatomical Region Laterality Modality Cardiac Other 05/12/2023 7:33 AM EDT Narrative 05/12/2023 10:18 AM EDT ? Echocardiogram Report Name: PURNIMA THACKER ?Study Date: 05/12/2023 07:33 AMBP: 96/63 mmHg ? Patient Location: [address] : 1955 ? Height: 154 cm ? Account: [id number] Age: 67 yrs ? Weight: 75 kg Gender: Female ?BSA: 1.7 m2 Ordering Physician: RADHA HOLLINS Referring Physician: RADHA HOLLINS Performed By: Dilma Bee RDCS Reason For Study: Guidance for TAVR procedure Exam Location: [facility]. Interpretation Summary PRE TAVR: There is [...] mL/m2. POST TAVR: Normal function of the hjdsu-fr-estfh prosthesis. See below for hemodynamic parameters. Slight improvement in left and right ventricular systolic function. LVEF now 20-25%. No pericardial effusion. See report for additional findings. Procedure Limited - 62099. Doppler - 42396. Color Doppler - 96453. Left Ventricle Left ventricle is of normal [...] Date: 307:33 AMBP: 96/63 mmHg Patient Location: [address] : 1955 Height: 154 cm Account: [id number] Age: 67 yrs Weight: 75 kg Gender: Female BSA: 1.7 m2 Ordering Physician: RADHA HOLLINS Referring Physician: RADHA HOLLINS Performed By: Dilma Bee RDCS Reason For Study: Guidance for TAVR procedure Exam Location: [facility]. Interpretation Summary PRE TAVR: There is [...] 28mL/m2. POST TAVR: Normal function of the qpxkt-ua-nexfi prosthesis. See belowfor hemodynamic parameters. Slight improvement in left and right ventricularsystolic function. LVEF now 20-25%. No pericardial effusion. See report for additional findings. Procedure Limited - 83605. Doppler - 91317. Color Doppler - 10315. Left Ventricle Left ventricle is of normal [...] ? Procedure Date: 05/12/2023 ? A #: [id number] ? Primary Physician: Zachary, Antelmo De La Fuente ? Case #: [id number] ? File Name: [id number] ? Catheterization Order Number: [id number] ? [facility] ? Final Report [place], [place] ? Patient Name: ? Purnima M. Kirstie ? ID#: ?[id number] ? : ?1955 ? Procedure Date: ? [...] Device Deployment ?* Temporary Pacemaker Insertion In [employer] ?* Endotracheal Intubation By Non-Cath Physician ?* [...] was designated as ASA Class IV. The [facility] clinical ?frailty scale is 4: Vulnerable. ? [...] ??A premounted 4.00 x 30 mm Nils Rooks (MINNA) was ? deployed with a maximum [...] calculated STS risk score was 30.1%. A mjyny-ts-kmxfz ?procedure was performed on the pre-existing bioprosthetic stented ?prosthesis. The priority of the ktrlj-px-vodbo procedure was Elective. ?The procedure was performed [...] Lai 3 Ultra RESILIA 23 mm THV (s/y=[id number]) transcatheter ?valve was inserted using standard technique. [...] to nor was it given in the ?crime lab technician. ?Recommended anti-platelet/anti-thrombotic regimen: ?Continue aspirin 81 mg daily for indefinitely. ?These recommendations are made at the time of the intervention. Patient ?and provider preferences or a changing clinical situation may require ?modification of this regimen. Consult [facility] [place] ?questions. [...] regimen. ? Comments: ?Successful right transfemoral TAVR Pdjkr-qr-Coejc with a 23 mm Lai 3 ?THV. [...] insertion-coronary, access site angiography, ?temporary pacemaker in crime lab technician, intubation-non cath physician, vascular ?closure device, transthoracic echo ??and TAVR. Dr. Alirio Hudson M.D. ?performed the left heart catheterization, access site angiography, ?temporary pacemaker in crime lab technician, vascular closure device, transthoracic ?echo , TAVR and CPR during cath. Dr. Lynda Mcgowan M.D. performed the ABG, ?anesthesia and intubation-non cath physician. ? Antelmo Sharma M.D. ? Electronically Signed by: Antelmo Sharma M.D. ? Report Finalized: 05/12/2023 ??14:31 ? Report Last Ammended: 07/01/2023 ??11:30 ? Procedure Note Antelmo Sharma MD - 07/01/2023 [facility] Cardiac Catheterization/Intervention Report Patient Name: Purnima ThackerKaylie Procedure Date: 05/12/2023 A #: [id number] Primary Physician: Antelmo hSarma Case #: [id number] File Name: [id number] Catheterization Order Number: [id number] [facility] FinalReport [place], [place] Patient Name: Purnima Thacker ID#:[id number] :1955 Procedure Date: May 12, 2023 Case #: [id number] Room: 6 Case Physicians: Antelmo Sharma M.D. Start: 08:03 Alirio Hudson M.D. Admission:05/08/2023 Lynda Mcgowan M.D. Discharge:05/22/2023 Fellow: Rebekah Tejeda M.D. Referring Physician: Mario Alberto Chin M.D. Procedures: * Coronary Angiography * Left Heart Catheterization * Coronary Stent Insertion * Transcatheter Aortic Valve Replacement * Vascular Closure Device Deployment * Temporary Pacemaker Insertion In [employer] * Endotracheal Intubation By Non-Cath Physician * [...] guide. A premounted 4.00 x 30 mm [place] Rooks (MINNA) was deployed with a maximum inflation [...] calculated STS risk score was 30.1%. A rceog-zf-obqfr procedure was performed on the pre-existing bioprosthetic stented prosthesis. The priority of the kjumj-hn-wibnc procedure wasElective. The procedure was performed under Moderate sedation performed byLynda Mcgowan M.D. (see anesthesia report for additional details). Alirio Hudson M.D. participated in the case (see Cardiac Surgery reportfor additional details). The TAVR sheath was a 14 Fr Corona eSheath Introducer and theaccess site was femoral. Rapid ventricular pacing was performed. An Corona Lai 3 Ultra RESILIA 23 mm THV (s/c=[id number])transcatheter valve was inserted using standard technique. The [...] prior to nor was it given inthe crime lab technician. Recommended anti-platelet/anti-thrombotic regimen: Continue aspirin 81 mg daily for indefinitely. These recommendations are made at the time of the intervention.Patient and provider preferences or a changing clinical situation mayrequire modification of this regimen. [place] [facility] [place] questions. Conclusions: [...] this regimen. Comments: Successful right transfemoral TAVR Myhhp-jk-Znwef with a 23 mmSapien 3 THV. We [...] insertion-coronary, access site angiography, temporary pacemaker in crime lab technician, intubation-non cath physician,vascular closure device, transthoracic echo and TAVR. Dr. Alirio Hudson M.D. performed the left heart catheterization, access site angiography, temporary pacemaker in crime lab technician, vascular closure device,transthoracic echo , [...] pH, POC 7.20(Crit ical) 7.35 - 7.45 [facility] Comment:Critical value [place], C C Lab. pCO2, POC 42 35 - 45 mmHg [facility] pO2, POC 260(H) 85 - 104 mmHg [facility] Base Excess, POC -11.0(L) -3.0 - 3.0 mmol/L [facility] Bicarbonate, POC 16.7(L) 20.0 - 26.0 mmol/L [facility] Sodium, POC 129(L) 135 - 145 mmol/L [facility] POC Potassium 3.8 3.5 - 5.0 mmol/L [facility] Ionized Calcium, POC 1.12(L) 1.15 - 1.33 mmol/L [facility] [facility] P[facility] Hematocrit 23.0(L) 34.0 - 45.0 % [facility] POC Calc Hgb 7.8(L) 11.2 - 15.7 g/dL [facility] Comment:The calculation of h emoglobin from hematocrit assumes a normal MCHC. POC Bgas Loc CC Lab [facility] Blood 05/12/2023 8:50 AM EDT 05/13/2023 12:00 PM EDT Alirio Hudson MD CHEMISTRY ORDERABLE S [facility] [place] [address] * (ABNORMAL) Point of Care Blood Gas Historical (05/12/2023 8:10 AM EDT) pH, POC 7.27(Crit ical) 7.35 - 7.45 [facility] Comment:Critical value OK, C C Lab. pCO2, POC 37 35 - 45 mmHg [facility] pO2, POC 29(Critic al) 85 - 104 mmHg [facility] Comment:Critical value OK, C C Lab. Base Excess, POC -10.0(L) -3.0 - 3.0 mmol/L [facility] Bicarbonate, POC 16.7(L) 20.0 - 26.0 mmol/L [facility] Sodium, POC 123(L) 135 - 145 mmol/L [facility] POC Potassium 4.0 3.5 - 5.0 mmol/L [facility] Ionized Calcium, POC 1.12(L) 1.15 - 1.33 mmol/L [facility] POC Hematocrit 27.0(L) 34.0 - 45.0 % [facility] POC Calc Hgb 9.2(L) 11.2 - 15.7 g/dL [facility] Comment:The calculation of h emoglobin from hematocrit assumes a normal MCHC. POC Bgas Loc CC Lab [facility] Blood 05/12/2023 8:10 AM EDT 05/13/2023 12:00 PM EDT Alirio Hudson MD CHEMISTRY ORDERABLE S [facility] [place] [address] * (ABNORMAL) Lactate, whole blood, [place] lab [place] [place] (05/12/2023 7:00 AM EDT) Lactate WB 2.4(H) 0.5 - 2.2 mmol/L [facility] Blood 05/12/2023 7:00 AM EDT 05/12/2023 7:09 AM EDT Narrative Resulting Agency Comment Spec In Lab Radha Hollins MD CHEMISTRY ORDERABL ES [facility] [place] [address] * (ABNORMAL) Comprehensive metabolic panel (non-fasting) (05/12/2023 6:00 AM EDT) Glucose 167 65 - 199 mg/dL [facility] Comment:Diabetes: >=200 mg/d L plus symptoms Blood Urea Nitrogen 67(H) 8 - 18 mg/dL [facility] Creatinine 2.01(H) 0.70 - 1.20 mg/dL [facility] Sodium 131(L) 135 - 145 mmol/L [facility] Potassium 4.3 3.5 - 5.0 mmol/L [facility] Comment: Please note: ??Patients with WBC >100,000 may have falsely elevated Potassium levels. ??For accurate Potassium quantification in these patients send serum separator tube (gold top) for subsequent determinations. ??Contact the Clinical Chemistry Laboratory if there are any questions. Chloride 97(L) 98 - 107 mmol/L [facility] Carbon Dioxide 14(L) 22 - 31 mmol/L [facility] Anion Gap 20(H) 5 - 15 mmol/L [facility] Calcium 8.6 8.5 - 10.5 mg/dL [facility] Protein, Total 6.3 6.1 - 8.0 g/dL [facility] Albumin 3.5 3.2 - 5.2 g/dL [facility] Aspartate Aminotransferase 1,435(H) 0 - 30 unit/L [facility] Alanine Aminotransferase 1,174(H) 0 - 30 unit/L [facility] Alkaline Phosphatase 100 35 - 105 unit/L [facility] Bilirubin, Total 0.9 0.2 - 1.3 mg/dL [facility] Est Glomerular Filtration Rate 27(L) >=60 mL/min/1. 73 m?? [facility] Comment: This patient's estimated GFR was [...] ES Performing Organization Address [facility] Co de Phone Number [facility] [place] [address] * (ABNORMAL) Coox2 (05/12/2023 5:08 AM EDT) pO2, Coox 24 mmHg [facility] Hgb Blood Gas 10.4(L) 11.7 - 15.5 g/dL [facility] Oxyhemoglobin, Coox 30.7 % [facility] Carboxyhemoglo bin, Coox 0.3 % [facility] Comment: Nonsmokers: 0.5-1.5% COHB Smokers: Variable, but usually less than 10% Toxic: 20-30% COHB Lethal: Greater than 60% COHB Methemoglobin, Coox 0.8 <=1.5 % [facility] Source Coox Mixed Venous [facility] Blood 05/12/2023 5:08 AM EDT 05/12/2023 5:08 AM EDT Radha Hollins MD POINT OF CARE TEST ORDERABLES Performing Organization Address [facility] Co de Phone Number [facility] [place] [address] * (ABNORMAL) Coox2 (05/12/2023 3:21 AM EDT) pO2, Coox 25 mmHg [facility] Hgb Blood Gas 10.8(L) 11.7 - 15.5 g/dL [facility] Oxyhemoglobin, Coox 32.7 % [facility] Carboxyhemoglo bin, Coox 0.3 % [facility] Comment: Nonsmokers: 0.5-1.5% COHB Smokers: Variable, but usually less than 10% Toxic: 20-30% COHB Lethal: Greater than 60% COHB Methemoglobin, Coox 0.7 <=1.5 % [facility] Source Coox Mixed Venous [facility] Blood 05/12/2023 3:21 AM EDT 05/12/2023 3:21 AM EDT Radha Hollins MD POINT OF CARE TEST ORDERABLES [facility] [place] [address] * (ABNORMAL) BLOOD GAS 2 ARTERIAL (05/12/2023 3:18 AM EDT) pH, Arterial 7.34(L) 7.35 - 7.45 [facility] PCO2, Arterial 30(L) 35 - 45 mmHg [facility] PO2, Arterial 72(L) 85 - 104 mmHg [facility] Bicarbonate, Arterial 16.0(L) 20.0 - 26.0 mmol/L [facility] Base Excess, Arterial -9.8(L) -3.0 - 3.0 mmol/L [facility] Hgb Blood Gas 11.0(L) 11.7 - 15.5 g/dL [facility] Oxyhemoglobin, Arterial 89.8(L) 94.0 - 97.0 % [facility] Carboxyhemoglob in, Arterial 0.3 % [facility] Comment: Nonsmokers: 0.5-1.5% COHB Smokers: Variable, but usually less than 10% Toxic: 20-30% COHB Lethal: Greater than 60% COHB Methemoglobin, Arterial 0.7 <=1.5 % [facility] Na Whole Blood 131(L) 135 - 145 mmol/L [facility] K Whole Blood 4.2 3.5 - 5.0 mmol/L [facility] Comment: Please note: Patients with WBC >100,000 may have falsely elevated Potassium levels. Contact the Clinical Chemistry Laboratory if there are any questions. ICa Whole Blood 1.12(L) 1.15 - 1.33 mmol/L [facility] Comment: Note: ??Total bilirubin higher than 20 mg/dL may lead to falsely low ionized calcium. CL Whole Blood 100 98 - 107 mmol/L [facility] Gluc Whole Bld 160 65 - 199 mg/dL [facility] Comment:Diabetes: >=200 mg/d L plus symptoms. Lactate WB 2.7(H) 0.5 - 2.2 mmol/L [facility] Flow Art 5.0 LPM [facility] Blood 05/12/2023 3:18 AM EDT 05/12/2023 3:18 AM EDT Radha Hollins MD POINT OF CARE TEST ORDERABLES Performing Organization Address [facility] Co de Phone Number [facility] [place] [address] * (ABNORMAL) Coox2 (05/12/2023 1:14 AM EDT) pO2, Coox 28 mmHg [facility] Hgb Blood Gas 10.9(L) 11.7 - 15.5 g/dL [facility] Oxyhemoglobin, Coox 37.3 % [facility] Carboxyhemoglo bin, Coox 0.3 % [facility] Comment: Nonsmokers: 0.5-1.5% COHB Smokers: Variable, but usually less than 10% Toxic: 20-30% COHB Lethal: Greater than 60% COHB Methemoglobin, Coox 0.5 <=1.5 % [facility] Source Coox Mixed Venous [facility] Blood 05/12/2023 1:14 AM EDT 05/12/2023 1:14 AM EDT Radha Hollins MD POINT OF CARE TEST ORDERABLES Performing Organization Address [facility] Co de Phone Number [facility] [place] [address] * (ABNORMAL) BLOOD GAS 2 ARTERIAL (05/12/2023 1:06 AM EDT) pH, Arterial 7.34(L) 7.35 - 7.45 [facility] PCO2, Arterial 30(L) 35 - 45 mmHg [facility] PO2, Arterial 81(L) 85 - 104 mmHg [facility] Bicarbonate, Arterial 15.7(L) 20.0 - 26.0 mmol/L [facility] Base Excess, Arterial -10.1(L) -3.0 - 3.0 mmol/L [facility] Hgb Blood Gas 11.0(L) 11.7 - 15.5 g/dL [facility] Oxyhemoglobin, Arterial 92.3(L) 94.0 - 97.0 % [facility] Carboxyhemoglob in, Arterial 0.2 % [facility] Comment: Nonsmokers: 0.5-1.5% COHB Smokers: Variable, but usually less than 10% Toxic: 20-30% COHB Lethal: Greater than 60% COHB Methemoglobin, Arterial 0.6 <=1.5 % [facility] Na Whole Blood 131(L) 135 - 145 mmol/L [facility] K Whole Blood 4.2 3.5 - 5.0 mmol/L [facility] Comment: Please note: Patients with WBC >100,000 may have falsely elevated Potassium levels. Contact the Clinical Chemistry Laboratory if there are any questions. ICa Whole Blood 1.13(L) 1.15 - 1.33 mmol/L [facility] Comment: Note: ??Total bilirubin higher than 20 mg/dL may lead to falsely low ionized calcium. CL Whole Blood 99 98 - 107 mmol/L [facility] Gluc Whole Bld 132 65 - 199 mg/dL [facility] Comment:Diabetes: >=200 mg/d L plus symptoms. Lactate WB 2.7(H) 0.5 - 2.2 mmol/L [facility] Flow Art 5.0 LPM [facility] Blood 05/12/2023 1:06 AM EDT 05/12/2023 1:06 AM EDT Radha Hollins MD POINT OF CARE TEST ORDERABLES Performing Organization Address City/State/[facility] Co de Phone Number [facility] [place] [address] * (ABNORMAL) Differential, Automated (05/12/2023 1:05 AM EDT) Neutrophil % 83.3 % [facility] Neutrophil Absolute 7.49(H) 1.70 - 6.10 x10(3)/mc L [facility] Lymph % 7.1 % [facility] Lymphocytes Abs 0.6(L) 0.9 - 3.2 x10(3)/mc L [facility] Monocyte % 8.9 % [facility] Monocyte Abs 0.8 0.3 - 0.9 x10(3)/mc L [facility] Eos % 0.0 % [facility] Eosinophils Abs 0.0 0.0 - 0.4 x10(3)/ L [facility] Basophil % 0.1 % [facility] IT[facility]AT[facility] Baso Absolute 0.0 0.0 - 0.1 x10(3)/ L [facility] Immature Gran % 0.60 % [facility] Comment: Immature granulocytes(IG's)percentage and absolute count will include metamyelocytes, myelocytes, and promyelocytes. Blood smears from CBCs yielding IG's will be scanned manually for concordance. If this scan disagrees with the automated IG or if promyelocytes are noted, a manual differential will be performed. Immature Gran Absolute 0.05(H) 0.00 - 0.04 x10(3)/ L [facility] Blood 05/12/2023 1:05 AM EDT 05/12/2023 1:15 AM EDT Narrative Resulting Agency Comment Spec In Lab Gianni Fletcher MD HEMATOLOGY ORDERABLE S [facility] [place] [address] * (ABNORMAL) Hemogram (05/12/2023 1:05 AM EDT) White Blood Cell 9.0 4.0 - 9.5 x10(3)/ L [facility] Red Blood Cell 3.01(L) 4.00 - 5.21 x10(6)/ L [facility] Hemoglobin 9.8(L) 11.7 - 15.5 g/dL [facility] Hematocrit 28.7(L) 35.7 - 45.8 % [facility] Mean Cell Volume 95.3(H) 82.6 - 94.4 fL [facility] Mean Cell Hemoglobin 32.6(H) 27.1 - 32.0 pg [facility] Mean Cell Hemoglobin Concentration 34.1 31.7 - 35.0 g/dL [facility] Platelet 186 145 - 357 x10(3)/mc L [facility] RDW Standard Deviation 43.7 37.0 - 46.0 fL [facility] RDW coefficient of variation 12.7 11.5 - 14.1 % [facility] Mean Platelet Volume 10.3 7.6 - 12.9 fL [facility] NRBC% auto 0.0 % [facility] ITAL LABORATORY NRBC Absolute 0.000 0.000 - 0.000 x10(3)/mc L [facility] Blood 05/12/2023 1:05 AM EDT 05/12/2023 1:15 AM EDT Narrative Resulting Agency Comment Spec In Lab Gianni Fletcher MD HEMATOLOGY ORDERABLE S [facility] [place] [address] * (ABNORMAL) Comprehensive metabolic panel (non-fasting) (05/12/2023 1:05 AM EDT) Glucose 141 65 - 199 mg/dL [facility] Comment:Diabetes: >=200 mg/d L plus symptoms Blood Urea Nitrogen 63(H) 8 - 18 mg/dL [facility] Creatinine 1.86(H) 0.70 - 1.20 mg/dL [facility] Sodium 131(L) 135 - 145 mmol/L [facility] Potassium 4.4 3.5 - 5.0 mmol/L [facility] Comment: Please note: ??Patients with WBC >100,000 may have falsely elevated Potassium levels. ??For accurate Potassium quantification in these patients send serum separator tube (gold top) for subsequent determinations. ??Contact the Clinical Chemistry Laboratory if there are any questions. Chloride 96(L) 98 - 107 mmol/L [facility] Carbon Dioxide 14(L) 22 - 31 mmol/L [facility] Anion Gap 21(H) 5 - 15 mmol/L [facility] Calcium 9.0 8.5 - 10.5 mg/dL [facility] Protein, Total 6.6 6.1 - 8.0 g/dL [facility] Albumin 3.9 3.2 - 5.2 g/dL [facility] Aspartate Aminotransferase 1,227(H) 0 - 30 unit/L [facility] Alanine Aminotransferase 1,097(H) 0 - 30 unit/L [facility] Alkaline Phosphatase 108(H) 35 - 105 unit/L [facility] Bilirubin, Total 1.0 0.2 - 1.3 mg/dL [facility] Est Glomerular Filtration Rate 29(L) >=60 mL/min/1. 73 m?? [facility] Comment: This patient's estimated GFR was [...] Lab Radha Hollins MD CHEMISTRY ORDERABL ES [facility] [place] [address] * XR Chest One [facility] (05/12/2023 1:00 [...] please contact the health post acute care registered nurse that requested your [...] questions please contactthe health post acute care registered nurse that requested your imaging first. Radha Hollins MD IMG DX ORDERABLES * (ABNORMAL) Coox2 (05/12/2023 12:30 AM EDT) pO2, Coox 22 mmHg [facility] Hgb Blood Gas 10.9(L) 11.7 - 15.5 g/dL [facility] Oxyhemoglobin, Coox 25.1 % [facility] Carboxyhemoglo bin, Coox 0.3 % [facility] Comment: Nonsmokers: 0.5-1.5% COHB Smokers: Variable, but usually less than 10% Toxic: 20-30% COHB Lethal: Greater than 60% COHB Methemoglobin, Coox 1.4 <=1.5 % [facility] Source Coox Mixed Venous [facility] Blood 05/12/2023 12:3 0 AM EDT 05/12/2023 12:30 AM EDT Radha Hollins MD POINT OF CARE TEST ORDERABLES [facility] [place] [address] * XR Chest [facility] (05/11/2023 11:45 [...] please contact the health post acute care registered nurse that requested your [...] questions please contactthe health post acute care registered nurse that requested your imaging first. Radah Hollins MD IMG DX ORDERABLES * (ABNORMAL) Lactate, whole blood, [place] lab [place] [place] (05/11/2023 7:40 PM EDT) Lactate WB 4.8(Critic al) 0.5 - 2.2 mmol/L [facility] Comment:Called by: [facility], Read back by: Magdalena Baires, Date/Time:05/11/23 19:54. Blood 05/11/2023 7:40 PM EDT 05/11/2023 7:49 PM EDT Narrative Resulting Agency Comment Spec In Lab Radha Hollins MD CHEMISTRY ORDERABL ES Performing Organization Address City/[facility]/ZIP Co de Phone Number [facility] [place] [address] * Urine culture (05/11/2023 7:22 PM EDT) [facility] Urine Culture 50,000-99,000 cfu/ml Normal mucosal herman Susceptibilit y testing not routinely performed for Coagulase Negative Staphylococcu s species and other Gram Positive organisms from urine. [facility] Clean Catch Urine 05/11/2023 7:22 PM EDT 05/11/2023 8:50 PM EDT Narrative Resulting Agency Comment Spec In Lab Brody Kaplan APRN MICROBIOLOGY - [place] [address] * (ABNORMAL) Urinalysis Microscopic Exam (05/11/2023 7:22 PM EDT) Pathologist [facility] [place] RBC, Urine 2 0 - 4 /HPF [facility] WBC, Urine >100(H) 0 - 5 /HPF [facility] Bacteria, Urine Occasional (A) None /HPF [facility] Squamous Epithelial Cells Raw Data, Urine 5(H) <=4 /HPF [facility] Hyaline Casts, Urine 3(H) 0 - 2 /LPF [facility] Clean Catch Urine 05/11/2023 7:22 PM EDT 05/11/2023 7:31 PM EDT Narrative Resulting Agency Comment Spec In Lab Brody Kaplan APRN URINE ORDERABLES [facility] [address] * (ABNORMAL) Urinalysis with reflex Culture (05/11/2023 7:22 PM EDT) Glucose, Urine Dipstick Negative Negative mg/dL [facility] Protein, Urine Dipstick Trace(A) Negative mg/dL [facility] Bilirubin, Urine Dipstick Negative Negative mg/dL [facility] Comment: Clinical correlation required for positive Urine Bilirubin results as false positive may occur with some drugs and drug related products. If a false positive is suspected a serum total bilirubin should be considered if clinically indicated. Urobilinogen, Urine Dipstick Normal Normal mg/dL [facility] pH, Urn (dipstick) 5.0 5.0 - 8.0 [facility] Blood, Urine Dipstick Trace(A) Negative mg/dL [facility] Ketone, Urine Dipstick Negative Negative mg/dL [facility] Nitrite, Urine Dipstick Negative Negative [facility] Leukocytes, Urine Dipstick Moderate(A) Negative [facility] Appearance, Urine Dipstick Cloudy(A) Clear [facility] Specific Schneider Urine Automated >=1.030(A) 1.005 - 1.030 [facility] Color, Urine Dipstick Yellow Yellow [facility] Reflex to Culture Yes [facility] Clean Catch Urine 05/11/2023 7:22 PM EDT 05/11/2023 7:31 PM EDT Narrative Resulting Agency Comment Spec In Lab Brody S Melcer TELEX OPERATOR URINE ORDERABLES Performing Organization Address City/[facility]/ZIP Co de Phone Number [facility] [address] * (ABNORMAL) pro-Brain Natriuretic Peptide (05/11/2023 7:11 PM EDT) NT-proBNP >35,000(H) <=124 pg/mL [facility] Blood 05/11/2023 7:11 PM EDT 05/11/2023 7:26 PM EDT Narrative Resulting Agency Comment Spec In Lab Radha Hollins MD CHEMISTRY ORDERABL ES Performing Organization Address City/[facility]/ZIP Co de Phone Number [facility] [address] * (ABNORMAL) Lactate, whole blood, [place] [place] [place] (05/11/2023 2:47 PM EDT) Lactate WB 2.9(H) 0.5 - 2.2 mmol/L [facility] Blood 05/11/2023 2:47 PM EDT 05/11/2023 2:53 PM EDT Narrative Resulting Agency Comment Spec In Lab Juan Luis Gonzalez MD CHEMISTRY ORDERABLES Performing Organization Address [facility] [facility] Co de Phone Number [facility] [place] [address] * (ABNORMAL) CT Angiogram Abdomen & Pelvis [...] please contact the health post acute care registered nurse that requested your imaging first. ? Electronically signed by: Eileen Gomes MD, [facility] ([phone]), at 05/11/2023 2:42 PM Narrative 05/11/2023 2:42 [...] please contact the health post acute care registered nurse that requested your imaging first. ? Electronically signed by: Cullen Narayanan MD, [facility] ([phone]), at 05/11/2023 4:37 PM Narrative 05/11/2023 4:37 [...] 610 mm2 Circumference: 88 mm Calcification: Mild Texwcqx-jn-vsalhyqp height: Left: 6.2 mm Right: 5.8 mm THORACIC AORTA Description: Normal course and caliber. ??Mild diffuse atherosclerotic changes. No acute aortopathy noted. Internal Controls Consultant dimensions: Aortic root: 27.6 mm Max ascending aorta: 30.5 mm x 27.7 mm Suggested fluoroscopic angulation based on line extending through the nadirs of the three sinuses of Valsalva, set equidistant: ?? BARBADIAN ??9 degrees; cranial 7 degrees MITRAL: Mitral [...] 610 mm2 Circumference: 88 mm Calcification: Mild Pjoquwn-rq-skshkpov height: Left: 6.2 mm Right: 5.8 mm THORACIC AORTA Description: Normal course and caliber. Mild diffuse atheroscleroticchanges. No acute aortopathy noted. Internal Controls Consultant dimensions: Aortic root: 27.6 mm Max ascending aorta: 30.5 mm x 27.7 mm Suggested fluoroscopic angulation based on line extending through thenadirs of the three sinuses of Valsalva, set equidistant: BAR[place] 9 degrees; cranial 7 degrees MITRAL: Mitral [...] questions please contactthe health post acute care registered nurse that requested your imaging first. Electronically signed by: Cullen Narayanan MD, [facility]([phone]), at 05/11/2023 4:37 PM Antelmo Sharma MD [facility] ORDERABLES * (ABNORMAL) Lactate, whole blood, [place] to lab [place] [place] (05/11/2023 9:29 AM EDT) Pathologist [facility] [place] Lactate WB 3.1(H) 0.5 - 2.2 mmol/L [facility] Blood 05/11/2023 9:29 AM EDT 05/11/2023 9:38 AM EDT Narrative Resulting Agency Comment Spec In Lab Juan Luis Gonzalez MD CHEMISTRY ORDERABLES [facility] [place] [address] * (ABNORMAL) Differential, Automated (05/11/2023 4:42 AM EDT) Pathologist [facility] [place] Neutrophil % 78.1 % [facility] Neutrophil Absolute 5.46 1.70 - 6.10 x10(3)/mc L [facility] Lymph % 10.6 % [facility] Lymphocytes Abs 0.7(L) 0.9 - 3.2 x10(3)/mc L [facility] Monocyte % 9.6 % [facility] Monocyte Abs 0.7 0.3 - 0.9 x10(3)/mc L [facility] Eos % 0.0 % [facility] Eosinophils Abs 0.0 0.0 - 0.4 x10(3)/mc L [facility] Basophil % 0.4 % [facility] Baso Absolute 0.0 0.0 - 0.1 x10(3)/mc L [facility] Immature Gran % 1.30 % [facility] Comment: Immature granulocytes(IG's)percentage and absolute count will include metamyelocytes, myelocytes, and promyelocytes. Blood smears from CBCs yielding IG's will be scanned manually for concordance. If this scan disagrees with the automated IG or if promyelocytes are noted, a manual differential will be performed. Immature Gran Absolute 0.09(H) 0.00 - 0.04 x10(3)/mc L [facility] Blood 05/11/2023 4:42 AM EDT 05/11/2023 4:49 AM EDT Narrative Resulting Agency Comment Spec In Lab Klaudia Reid MD HEMATOLOGY OR DERABLES Performing Organization Address City/State/[facility] Co de Phone Number [facility] [place] [address] * (ABNORMAL) Hemogram (05/11/2023 4:42 AM EDT) White Blood Cell 7.0 4.0 - 9.5 x10(3)/mc L [facility] Red Blood Cell 3.44(L) 4.00 - 5.21 x10(6)/mc L [facility] Hemoglobin 11.1(L) 11.7 - 15.5 g/dL [facility] Hematocrit 32.7(L) 35.7 - 45.8 % [facility] Mean Cell Volume 95.1(H) 82.6 - 94.4 fL [facility] Mean Cell Hemoglobin 32.3(H) 27.1 - 32.0 pg [facility] Mean Cell Hemoglobin Concentration 33.9 31.7 - 35.0 g/dL [facility] Platelet 165 145 - 357 x10(3)/mc L [facility] RDW Standard Deviation 43.1 37.0 - 46.0 fL [facility] RDW coefficient of variation 12.7 11.5 - 14.1 % [facility] Mean Platelet Volume 10.1 7.6 - 12.9 fL [facility] NRBC% auto 0.0 % [facility] NRBC Absolute 0.000 0.000 - 0.000 x10(3)/mc L [facility] Blood 05/11/2023 4:42 AM EDT 05/11/2023 4:49 AM EDT Narrative Resulting Agency Comment Spec In Lab Klaudia Reid MD HEMATOLOGY OR DERABLES Performing Organization Address City/State/[facility] Co de Phone Number [facility] [address] * Heparin (unfractionated) Level (05/11/2023 4:42 AM EDT) UF Heparin 0.46 IU/mL [facility] Comment: Heparin (anti-Xa) levels should be [...] Lab Radha Hollins MD HEMATOLOGY ORDERAB LES [facility] [address] * (ABNORMAL) Comprehensive metabolic panel (non-fasting) (05/11/2023 4:42 AM EDT) Glucose 143 65 - 199 mg/dL [facility] Comment:Diabetes: >=200 mg/d L plus symptoms Blood Urea Nitrogen 42(H) 8 - 18 mg/dL [facility] Creatinine 1.24(H) 0.70 - 1.20 mg/dL [facility] Sodium 134(L) 135 - 145 mmol/L [facility] Potassium 4.6 3.5 - 5.0 mmol/L [facility] Comment: Please note: ??Patients with WBC >100,000 may have falsely elevated Potassium levels. ??For accurate Potassium quantification in these patients send serum separator tube (gold top) for subsequent determinations. ??Contact the Clinical Chemistry Laboratory if there are any questions. Chloride 99 98 - 107 mmol/L [facility] Carbon Dioxide 14(L) 22 - 31 mmol/L [facility] Anion Gap 21(H) 5 - 15 mmol/L [facility] Calcium 9.6 8.5 - 10.5 mg/dL [facility] Protein, Total 7.2 6.1 - 8.0 g/dL [facility] Albumin 3.7 3.2 - 5.2 g/dL [facility] Aspartate Aminotransferase 144(H) 0 - 30 unit/L [facility] Comment:result rechecked-ssc Alanine Aminotransferase 130(H) 0 - 30 unit/L [facility] Comment:result rechecked-ssc Alkaline Phosphatase 72 35 - 105 unit/L [facility] Bilirubin, Total 0.8 0.2 - 1.3 mg/dL [facility] Est Glomerular Filtration Rate 48(L) >=60 mL/min/1. 73 m?? [facility] Comment: This patient's estimated GFR was [...] MD CHEMISTRY ORDERABL ES Performing Organization Address City/[facility]/ZIP Co de Phone Number [facility] [place] [id number] * EKG 12 Lead (05/10/2023 1:16 PM EDT) Ventricular rate 118 BPM MUSE SYSTEM Atrial Rate 118 BPM MUSE SYSTEM P-R Interval 152 ms MUSE SYSTEM QRS Duration 104 ms MUSE SYSTEM Q-T Interval 316 ms MUSE SYSTEM QTC Calculated (Be[place]) 442 ms MUSE SYSTEM Calculated P [place] 29 degrees MUSE SYSTEM Calculated R [place] 18 degrees MUSE SYSTEM Calculated T [place] -173 degrees MUSE SYSTEM INTERPRETATION Sinus tachycardia [...] Anterior leads Confirmed by MD Villareal Danette ([id number]) on 05/10/2023 8:47:46 PM MUSE SYSTEM 05/10/2023 1:16 PM EDT 05/10/2023 8:47 PM EDT Juan Luis Gonzalez MD ECG ORDERABLES Performing Organization Address City/[facility]/ZIP Co de Phone Number MUSE SYSTEM * Lactate, whole blood, send to lab [place] [place] (05/10/2023 11:52 AM EDT) Pathologist [facility] [place] Lactate WB 1.8 0.5 - 2.2 mmol/L [facility] Blood 05/10/2023 11:5 2 AM EDT 05/10/2023 12:13 PM EDT Narrative Resulting Agency Comment Spec In Lab Juan Luis Gonzalez MD CHEMISTRY ORDERABLES [facility] [place] [address] * XR Chest One View (05/10/2023 11:16 [...] please contact the health post acute care registered nurse that requested your imaging first. ? Electronically signed by: ALIX RUVALCABA MD, [facility] ([phone]), at 05/10/2023 1:25 PM Narrative 05/10/2023 1:25 [...] questions please contactthe health post acute care registered nurse that requested your imaging first. Electronically signed by: ALIX RUVALCABA MD, [facility]([phone]), at 05/10/2023 1:25 PM Juan Luis Gonzalez MD IMG DX ORDERABLES * EKG 12 Lead (05/10/2023 7:59 AM EDT) Ventricular rate 115 BPM MUSE SYSTEM Atrial Rate 115 BPM MUSE SYSTEM P-R Interval 142 ms MUSE SYSTEM QRS Duration 102 ms MUSE SYSTEM Q-T Interval 322 ms MUSE SYSTEM QTC Calculated (Bezet) 445 ms MUSE SYSTEM Calculated P [place] 36 degrees MUSE SYSTEM Calculated R [place] 28 degrees MUSE SYSTEM Calculated T [place] -119 degrees MUSE SYSTEM INTERPRETATION Sinus tachycardia with frequent Premature ventricular complexes and Fusion complexes ST & T wave abnormality, consider lateral ischemia Abnormal ECG When compared with ECG of 08-MAY-2023 15:51, No significant change was found I personally reviewed the tracing and edited the fellows interpretation Confirmed by fellow MD Welsh Hanyuan ([id number]) on 05/11/2023 6:19:54 AM Confirmed by MD Ugalde Hannah ([id number]) on 05/11/2023 3:18:56 PM MUSE SYSTEM 05/10/2023 7:59 AM EDT 05/11/2023 3:18 PM EDT Radha Hollins MD ECG ORDERABLES MUSE SYSTEM * (ABNORMAL) Differential, Automated (05/10/2023 2:28 AM EDT) Neutrophil % 77.1 % [facility] Neutrophil Absolute 4.01 1.70 - 6.10 x10(3)/mc L [facility] Lymph % 14.0 % [facility] Lymphocytes Abs 0.7(L) 0.9 - 3.2 x10(3)/mc L [facility] Monocyte % 7.7 % [facility] Monocyte Abs 0.4 0.3 - 0.9 x10(3)/mc L [facility] Eos % 0.4 % [facility] Eosinophils Abs 0.0 0.0 - 0.4 x10(3)/mc L [facility] Basophil % 0.4 % [facility] Baso Absolute 0.0 0.0 - 0.1 x10(3)/ L [facility] Immature Gran % 0.40 % [facility] Comment: Immature granulocytes(IG's)percentage and absolute count will include metamyelocytes, myelocytes, and promyelocytes. Blood smears from CBCs yielding IG's will be scanned manually for concordance. If this scan disagrees with the automated IG or if promyelocytes are noted, a manual differential will be performed. Immature Gran Absolute 0.02 0.00 - 0.04 x10(3)/ L [facility] Blood 05/10/2023 2:28 AM EDT 05/10/2023 2:57 AM EDT Narrative Resulting Agency Comment Spec In Lab Klaudia Reid MD HEMATOLOGY OR DERABLES [facility] [place] [address] * (ABNORMAL) Hemogram (05/10/2023 2:28 AM EDT) White Blood Cell 5.2 4.0 - 9.5 x10(3)/mc L [facility] Red Blood Cell 3.11(L) 4.00 - 5.21 x10(6)/mc L [facility] Hemoglobin 10.2(L) 11.7 - 15.5 g/dL [facility] Hematocrit 30.2(L) 35.7 - 45.8 % [facility] Mean Cell Volume 97.1(H) 82.6 - 94.4 fL [facility] Mean Cell Hemoglobin 32.8(H) 27.1 - 32.0 pg [facility] Mean Cell Hemoglobin Concentration 33.8 31.7 - 35.0 g/dL [facility] Platelet 151 145 - 357 x10(3)/mc L [facility] RDW Standard Deviation 44.9 37.0 - 46.0 fL [facility] RDW coefficient of variation 12.8 11.5 - 14.1 % [facility] Mean Platelet Volume 9.8 7.6 - 12.9 fL [facility] NRBC% auto 0.0 % [facility] NRBC Absolute 0.000 0.000 - 0.000 x10(3)/ L [facility] Blood 05/10/2023 2:28 AM EDT 05/10/2023 2:57 AM EDT Narrative Resulting Agency Comment Spec In Lab Klaudia Reid MD HEMATOLOGY OR DERABLES [facility] [place] [address] * (ABNORMAL) Comprehensive metabolic panel (non-fasting) (05/10/2023 2:28 AM EDT) Glucose 100 65 - 199 mg/dL [facility] Comment:Diabetes: >=200 mg/d L plus symptoms Blood Urea Nitrogen 30(H) 8 - 18 mg/dL [facility] Creatinine 0.90 0.70 - 1.20 mg/dL [facility] Sodium 134(L) 135 - 145 mmol/L [facility] Potassium 4.1 3.5 - 5.0 mmol/L [facility] Comment: Please note: ??Patients with WBC >100,000 may have falsely elevated Potassium levels. ??For accurate Potassium quantification in these patients send serum separator tube (gold top) for subsequent determinations. ??Contact the Clinical Chemistry Laboratory if there are any questions. Chloride 102 98 - 107 mmol/L [facility] Carbon Dioxide 20(L) 22 - 31 mmol/L [facility] Anion Gap 12 5 - 15 mmol/L [facility] Calcium 9.3 8.5 - 10.5 mg/dL [facility] Protein, Total 6.4 6.1 - 8.0 g/dL [facility] Albumin 3.7 3.2 - 5.2 g/dL [facility] Aspartate Aminotransferase 24 0 - 30 unit/L [facility] Alanine Aminotransferase 14 0 - 30 unit/L [facility] Alkaline Phosphatase 70 35 - 105 unit/L [facility] Bilirubin, Total 0.5 0.2 - 1.3 mg/dL [facility] Est Glomerular Filtration Rate 70 >=60 mL/min/1. 73 m?? [facility] Comment: This patient's estimated GFR was [...] Lab Radha Hollins MD CHEMISTRY ORDERABL ES [facility] [address] * Heparin (unfractionated) Level (05/10/2023 2:28 AM EDT) UF Heparin 0.37 IU/mL [facility] Comment: Heparin (anti-Xa) [...] Lab Radha Hollins MD HEMATOLOGY ORDERAB LES [facility] [address] * (ABNORMAL) Differential, Automated (05/09/2023 4:00 AM EDT) Neutrophil % 81.7 % [facility] Neutrophil Absolute 5.26 1.70 - 6.10 x10(3)/mc L [facility] Lymph % 10.7 % [facility] Lymphocytes Abs 0.7(L) 0.9 - 3.2 x10(3)/mc L [facility] Monocyte % 6.5 % [facility] Monocyte Abs 0.4 0.3 - 0.9 x10(3)/mc L [facility] Eos % 0.5 % [facility] Eosinophils Abs 0.0 0.0 - 0.4 x10(3)/mc L [facility] Basophil % 0.3 % [facility] Baso Absolute 0.0 0.0 - 0.1 x10(3)/mc L [facility] Immature Gran % 0.30 % [facility] Comment: Immature granulocytes(IG's)percentage and absolute count will include metamyelocytes, myelocytes, and promyelocytes. Blood smears from CBCs yielding IG's will be scanned manually for concordance. If this scan disagrees with the automated IG or if promyelocytes are noted, a manual differential will be performed. Immature Gran Absolute 0.02 0.00 - 0.04 x10(3)/mc L [facility] Blood 05/09/2023 4:00 AM EDT 05/09/2023 4:19 AM EDT Narrative Resulting Agency Comment Spec In Lab Klaudia Reid MD HEMATOLOGY OR DERABLES Performing Organization Address City/[facility]/ZIP Co de Phone Number [facility] [place] [address] * (ABNORMAL) Hemogram (05/09/2023 4:00 AM EDT) White Blood Cell 6.4 4.0 - 9.5 x10(3)/[facility] LABORATORY Red Blood Cell 3.15(L) 4.00 - 5.21 x10(6)/[facility] LABORATORY Hemoglobin 10.2(L) 11.7 - 15.5 g/dL [facility] Hematocrit 30.3(L) 35.7 - 45.8 % [facility] Mean Cell Volume 96.2(H) 82.6 - 94.4 fL [facility] Mean Cell Hemoglobin 32.4(H) 27.1 - 32.0 pg [facility] Mean Cell Hemoglobin Concentration 33.7 31.7 - 35.0 g/dL [facility] Platelet 151 145 - 357 x10(3)/ L [facility] RDW Standard Deviation 44.7 37.0 - 46.0 fL [facility] RDW coefficient of variation 12.8 11.5 - 14.1 % [facility] Mean Platelet Volume 9.4 7.6 - 12.9 fL [facility] NRBC% auto 0.0 % [facility] NRBC Absolute 0.000 0.000 - 0.000 x10(3)/ L [facility] Blood 05/09/2023 4:00 AM EDT 05/09/2023 4:19 AM EDT Narrative Resulting Agency Comment Spec In Lab Klaudia Reid MD HEMATOLOGY OR DERABLES Performing Organization Address City/[facility]/ZIP Co de Phone Number [facility] [place] [address] * Heparin (unfractionated) Level (05/09/2023 4:00 AM EDT) UF Heparin 0.47 IU/mL [facility] Comment: Heparin (anti-Xa) [...] Lab Radha Hollins MD HEMATOLOGY ORDERAB LES [facility] [place] [address] * (ABNORMAL) Comprehensive metabolic panel (non-fasting) (05/09/2023 4:00 AM EDT) Glucose 108 65 - 199 mg/dL [facility] Comment:Diabetes: >=200 mg/d L plus symptoms Blood Urea Nitrogen 31(H) 8 - 18 mg/dL [facility] Creatinine 1.03 0.70 - 1.20 mg/dL [facility] Sodium 137 135 - 145 mmol/L [facility] Potassium 4.4 3.5 - 5.0 mmol/L [facility] Comment: Please note: ??Patients with WBC >100,000 may have falsely elevated Potassium levels. ??For accurate Potassium quantification in these patients send serum separator tube (gold top) for subsequent determinations. ??Contact the Clinical Chemistry Laboratory if there are any questions. Chloride 102 98 - 107 mmol/L [facility] Carbon Dioxide 20(L) 22 - 31 mmol/L [facility] Anion Gap 15 5 - 15 mmol/L [facility] Calcium 9.3 8.5 - 10.5 mg/dL [facility] Protein, Total 6.6 6.1 - 8.0 g/dL [facility] Albumin 3.8 3.2 - 5.2 g/dL [facility] Aspartate Aminotransferase 32(H) 0 - 30 unit/L [facility] Alanine Aminotransferase 18 0 - 30 unit/L [facility] Alkaline Phosphatase 78 35 - 105 unit/L [facility] Bilirubin, Total 0.5 0.2 - 1.3 mg/dL [facility] Est Glomerular Filtration Rate 60 >=60 mL/min/1. 73 m?? [facility] Comment: This patient's estimated GFR was [...] MD CHEMISTRY ORDERABL ES Performing Organization Address City/[facility]/[place] [address] * (ABNORMAL) pro-Brain Natriuretic Peptide (05/08/2023 4:00 PM EDT) NT-proBNP 25,503(H) <=124 pg/mL [facility] Blood Venous Draw / Unknown 05/08/2023 4:00 PM EDT 05/08/2023 4:25 PM EDT Narrative Resulting Agency Comment Spec In Lab Juan Luis Gonzalez MD CHEMISTRY ORDERABLES Performing Organization Address City/[facility]/ZIP Co de Phone Number [facility] [place] [address] * Magnesium (05/08/2023 4:00 PM EDT) Pathologist [facility] [place] Magnesium 0.82 0.69 - 1.07 mmol/L [facility] Blood 05/08/2023 4:00 PM EDT 05/08/2023 4:06 PM EDT Narrative Resulting Agency Comment Spec In Lab Enrique Chua MD CHEMISTRY ORDERABLES Performing Organization Address [facility] de Phone Number [facility] [place] [address] * Potassium (05/08/2023 4:00 PM EDT) [facility] Potassium 3.9 3.5 - 5.0 mmol/L [facility] Comment: Please note: ??Patients with WBC [...] ORDERABL ES Performing Organization Address [facility] de Phone Number [facility] [place] [address] * Heparin (unfractionated) Level (05/08/2023 4:00 PM EDT) Pathologist [facility] [place] UF Heparin 0.43 IU/mL [facility] ITAL [facility]OR[facility] Comment: Heparin (anti-Xa) [...] Lab Radha Hollins MD HEMATOLOGY ORDERAB LES [facility] [place] [address] * EKG 12 Lead (05/08/2023 3:51 PM EDT) Ventricular rate 98 BPM MUSE SYSTEM Atrial Rate 98 BPM MUSE SYSTEM P-R Interval 150 ms MUSE SYSTEM QRS Duration 102 ms MUSE SYSTEM Q-T Interval 358 ms MUSE SYSTEM QTC Calculated (Bezet) 457 ms MUSE SYSTEM Calculated P [place] 38 degrees MUSE SYSTEM Calculated R [place] 48 degrees MUSE SYSTEM Calculated T [place] -112 degrees MUSE SYSTEM INTERPRETATION Sinus rhythm with frequent and consecutive Premature ventricular and fusion complexes Septal infarct , age undetermined ST & T wave abnormality, consider anterolateral ischemia Abnormal ECG When compared with ECG of 09-NOV-2022 11:17, T wave inversion now evident in Anterolateral leads Confirmed by MD Harshil, Enrique Bell ([id number]) on 05/10/2023 8:11:46 AM MUSE SYSTEM 05/08/2023 3:51 PM EDT 05/10/2023 8:11 AM EDT Radha Hollins MD ECG ORDERABLES Performing Organization Address City/[facility]/ZIP Co de Phone Number MUSE SYSTEM * (ABNORMAL) Differential, Automated (05/08/2023 11:38 AM EDT) Neutrophil % 71.3 % [facility] HO SPITAL LABORATORY Neutrophil Absolute 2.91 1.70 - 6.10 x10(3)/mc L [facility] Lymph % 19.1 % [facility]AYE LABOR[facility] Lymphocytes Abs 0.8(L) 0.9 - 3.2 x10(3)/mc L [facility]PITAL [facility] Monocyte % 9.0 % [facility] HOSP ITAL LABOR[facility] Monocyte Abs 0.4 0.3 - 0.9 x10(3)/mc L [facility] Eos % 0.2 % [facility] Eosinophils Abs 0.0 0.0 - 0.4 x10(3)/mc L [facility] Basophil % 0.2 % [facility] HOSP ITAL [facility] Baso Absolute 0.0 0.0 - 0.1 x10(3)/mc L [facility] Immature Gran % 0.20 % [facility] Comment: Immature granulocytes(IG's)percentage and absolute count will include metamyelocytes, myelocytes, and promyelocytes. Blood smears from CBCs yielding IG's will be scanned manually for concordance. If this scan disagrees with the automated IG or if promyelocytes are noted, a manual differential will be performed. Immature Gran Absolute 0.01 0.00 - 0.04 x10(3)/ L [facility] Blood 05/08/2023 11:3 8 AM EDT 05/08/2023 11:44 AM EDT Narrative Resulting Agency Comment Spec In Lab Lincoln Sal MD HEMATOLOGY ORDERA BLES [facility] [place] [address] * (ABNORMAL) Hemogram (05/08/2023 11:38 AM EDT) White Blood Cell 4.1 4.0 - 9.5 x10(3)/mc L [facility] Red Blood Cell 3.05(L) 4.00 - 5.21 x10(6)/mc L [facility] Hemoglobin 10.2(L) 11.7 - 15.5 g/dL [facility] Hematocrit 29.6(L) 35.7 - 45.8 % [facility] Mean Cell Volume 97.0(H) 82.6 - 94.4 fL [facility] Mean Cell Hemoglobin 33.4(H) 27.1 - 32.0 pg [facility] Mean Cell Hemoglobin Concentration 34.5 31.7 - 35.0 g/dL [facility] Platelet 136(L) 145 - 357 x10(3)/mc L [facility] RDW Standard Deviation 44.3 37.0 - 46.0 fL [facility] RDW coefficient of variation 12.6 11.5 - 14.1 % [facility] Mean Platelet Volume 9.4 7.6 - 12.9 fL [facility] NRBC% auto 0.0 % [facility] NRBC Absolute 0.000 0.000 - 0.000 x10(3)/mc L [facility] Blood 05/08/2023 11:3 8 AM EDT 05/08/2023 11:44 AM EDT Narrative Resulting Agency Comment Spec In Lab Lincoln Sal MD HEMATOLOGY ORDERA BLES Performing Organization Address City/[facility] Co de Phone Number [facility] [place] [address] * TSH (05/08/2023 11:38 AM EDT) Thyroid Stimulating Hormone 1.27 0.27 - 4.20 mcIU/mL [facility] Comment: Reference Interval (mcIU/mL): Females: ??First Trimester: 0.23-3.88 ??Second Trimester: 0.22-3.90 ??Third Trimester: 0.44-4.66 Blood 05/08/2023 11:3 8 AM EDT 05/08/2023 11:44 AM EDT Narrative Resulting Agency Comment Spec In Lab Enrique Chua MD CHEMISTRY ORDERABLES Performing Organization Address [facility] Co de Phone Number [facility] [place] [address] * (ABNORMAL) Phosphorus (05/08/2023 11:38 AM EDT) Phosphorus 4.7(H) 2.5 - 4.5 mg/dL [facility] Blood 05/08/2023 11:3 8 AM EDT 05/08/2023 11:44 AM EDT Narrative Resulting Agency Comment Spec In Lab Enrique Chua MD CHEMISTRY ORDERABLES Performing Organization Address City/[facility] Co de Phone Number [facility] [place] [address] * Magnesium (05/08/2023 11:38 AM EDT) Magnesium 0.76 0.69 - 1.07 mmol/L [facility] Blood 05/08/2023 11:3 8 AM EDT 05/08/2023 11:44 AM EDT Narrative Resulting Agency Comment Spec In Lab Enrique Chua MD CHEMISTRY ORDERABLES [facility] [place] [address] * (ABNORMAL) Basic Metabolic Panel (non-fasting) (05/08/2023 11:38 AM EDT) Glucose 97 65 - 199 mg/dL [facility] Comment:Diabetes: >=200 mg/d L plus symptoms Blood Urea Nitrogen 27(H) 8 - 18 mg/dL [facility] Creatinine 1.02 0.70 - 1.20 mg/dL [facility] Sodium 139 135 - 145 mmol/L [facility] Potassium 4.2 3.5 - 5.0 mmol/L [facility] Comment: Please note: ??Patients with WBC >100,000 may have falsely elevated Potassium levels. ??For accurate Potassium quantification in these patients send serum separator tube (gold top) for subsequent determinations. ??Contact the Clinical Chemistry Laboratory if there are any questions. Chloride 105 98 - 107 mmol/L [facility] Carbon Dioxide 20(L) 22 - 31 mmol/L [facility] Anion Gap 14 5 - 15 mmol/L [facility] Calcium 9.4 8.5 - 10.5 mg/dL [facility] Est Glomerular Filtration Rate 60 >=60 mL/min/1. 73 m?? [facility] Comment: This patient's estimated GFR was [...] In Lab Enrique Chua MD CHEMISTRY ORDERABLES [facility] [place] [address] * ECHO COMPLETE (05/08/2023 11:02 AM EDT) EF 25 [employer] SYSTEM Anatomical Region Laterality Modality Cardiac Other 05/08/2023 10:0 3 AM EDT Narrative 05/08/2023 11:51 AM EDT ? Echocardiogram Report Name: PURNIMA THACKER ?Study Date: 05/08/2023 10:03 AMBP: 92/64 mmHg ? Patient Location: [facility]^CV29^A : 1955 ? Height: 155 cm ? Account: [id number] Age: 67 yrs ? Weight: 78 kg Gender: Female ?BSA: 1.8 m2 Ordering Physician: ENRIQUE CHUA Referring Physician: MARIO ALBERTO CHIN Performed By: CHUCKIE Canchola Reason For Study: SAVR Stenosis Exam Location: [facility]. Interpretation Summary -Left ventricle is severely [...] worsening stenosis. Mitral regurgitation is similar. Procedure Complete-04366. Satisfactory quality. There is normal sinus rhythm. [...] Study Date: 0:03 AMBP: 92/64 mmHg Patient Location:[facility]^CV29^A : 1955 Height: 155 cm Account: [id number] Age: 67 yrs Weight: 78 kg Gender: Female BSA: 1.8 m2 Ordering Physician: ENRIQUE CHUA Referring Physician: MARIO ALBERTO CHIN Performed By: CHUCKIE Canchola Reason For Study: SAVR Stenosis Exam Location: [facility]. Interpretation Summary -Left ventricle is severely [...] suggestsworsening stenosis. Mitral regurgitation is similar. Procedure Complete-[id number]. Satisfactory quality. There is normal sinus rhythm. 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 Rate/Dose Verify 05/17/2023 8:00 AM [...] post-op day 1 in the AM Give HI if unable to take PO, Routine Group [...] Routine documented in this encounter Care Teams Tool Die Maker Relationship Specialty Start Date End Date Magdalena Acosta MD [address] [place] [address] PCP - General Family Medicine 02/05/23 documented as of this encounter
--- OUTSIDE RECORDS SUMMARY | 2024-05-18 14:05 | XMS_ITS | Encounter Summary ---
[place] [address] Care Team Providers Care Rodding Anode Worker Name Role Phone Magdalena Acosta MD Primary Care Provider [phone] Encounter Details Date Type Department Care Team (Latest Contact Info) Description 03/18/2023 2:30 PM EDT Laboratory Appointment Lab [address] [place] [phone] Positive FRANCISCO (antinuclear antibody) Social History Tobacco [...] PM EDT Hospital Encounter Outpatient [place] [phone] Markel Borjas MD [facility] [address] [place] [address] 05/29/2024 2:00 PM EDT - 05/29/2024 2:43 PM EDT Surgery Outpatient [place] [phone] Markel Borjas MD [facility] [address] [place] [address] (OSC MSURG) BONE MARROW BIOPSY AND ASPIRATION; DIAGNOSTIC (WRVU 1.44) 06/23/2024 2:00 PM EST Office Visit Hematology and Oncology at [facility] [place] [address] Markel Borjas MD [facility] [address] [place] [address] 03/01/2025 4:15 PM EDT Office Visit Dermatology at [place] [address] [place] [phone] Marek Bonilla MD [address], [place] [address] Scheduled Procedures Name Priority Associated Diagnoses Date/Ti [...] % 71.2 % [facility] Neutrophil Absolute 2.26 1.70 - 6.10 x10(3)/mc L [facility] Lymph % 18.2 % [facility] Lymphocytes Abs 0.6(L) 0.9 - 3.2 x10(3)/mc L [facility] Monocyte % 9.7 % [facility] Monocyte Abs 0.3 0.3 - 0.9 x10(3)/mc L [facility] Eos % 0.3 % [facility] Eosinophils Abs 0.0 0.0 - 0.4 x10(3)/mc L [facility] Basophil % 0.6 % [facility] Baso Absolute 0.0 0.0 - 0.1 x10(3)/mc L [facility] Immature Gran % 0.00 % [facility] Comment: Immature granulocytes(IG's)percentage and absolute count will include metamyelocytes, myelocytes, and promyelocytes. Blood smears from CBCs yielding IG's will be scanned manually for concordance. If this scan disagrees with the automated IG or if promyelocytes are noted, a manual differential will be performed. Immature Gran Absolute 0.00 0.00 - 0.04 x10(3)/mc L [facility] Blood 03/18/2023 2:14 PM EDT 03/18/2023 2:24 PM EDT Narrative Resulting Agency Comment Spec In Lab Magdalena Peralta MD HEMATOLOGY ORDERABLE S [facility] [place] [address] * (ABNORMAL) Hemogram (03/18/2023 2:14 PM EDT) White Blood Cell 3.2(L) 4.0 - 9.5 x10(3)/mc L [facility] Red Blood Cell 3.44(L) 4.00 - 5.21 x10(6)/mc L [facility] Hemoglobin 11.1(L) 11.7 - 15.5 g/dL [facility] Hematocrit 32.9(L) 35.7 - 45.8 % [facility] Mean Cell Volume 95.6(H) 82.6 - 94.4 fL [facility] Mean Cell Hemoglobin 32.3(H) 27.1 - 32.0 pg [facility] Mean Cell Hemoglobin Concentration 33.7 31.7 - 35.0 g/dL [facility] Platelet 144(L) 145 - 357 x10(3)/mc L [facility] RDW Standard Deviation 42.6 37.0 - 46.0 fL [facility] RDW coefficient of variation 12.3 11.5 - 14.1 % [facility] Mean Platelet Volume 9.4 7.6 - 12.9 fL [facility] NRBC% auto 0.0 % [facility] ITAL LABORATORY NRBC Absolute 0.000 0.000 - 0.000 x10(3)/mc L [facility] Blood 03/18/2023 2:14 PM EDT 03/18/2023 2:24 PM EDT Narrative Resulting Agency Comment Spec In Lab Magdalena Peralta MD HEMATOLOGY ORDERABLE S Performing Organization Address City/[facility]/ZIP Co de Phone Number [facility] [place] [address] * (ABNORMAL) Sedimentation rate (03/18/2023 2:14 PM [...] DO HEMATOLOGY ORDERAB LES Performing Organization Address City/[facility]/ZIP Co de Phone Number [facility] [place] [address] * CRP, acute inflammation (03/18/2023 2:14 PM EDT) C-Reactive Protein 3.0 <=4.9 mg/L [facility] Blood 03/18/2023 2:14 PM EDT 03/18/2023 2:24 PM EDT Narrative Resulting Agency Comment Spec In Lab Kai D Wander DO CHEMISTRY ORDERABL ES Performing Organization Address [facility] Co de Phone Number [facility] [place] [address] * C3 Complement (03/18/2023 2:14 PM EDT) Complement C3 142 90 - 180 mg/dL [facility] Blood 03/18/2023 2:14 PM EDT 03/18/2023 2:24 PM EDT Narrative Resulting Agency Comment Spec In Lab Kia D Wander DO CHEMISTRY ORDERABL ES Performing Organization Address [facility] Co de Phone Number [facility] [place] [address] * C4 Complement (03/18/2023 2:14 PM EDT) Complement C4 30 10 - 40 mg/dL [facility] Blood 03/18/2023 2:14 PM EDT 03/18/2023 2:24 PM EDT Narrative Resulting Agency Comment Spec In Lab Kia Viramontes DO CHEMISTRY ORDERABL ES Performing Organization Address [facility] Co de Phone Number [facility] [place] [address] * CK (03/18/2023 2:14 PM EDT) Creatine Kinase 38 0 - 160 unit/L [facility] Blood 03/18/2023 2:14 PM EDT 03/18/2023 2:24 PM EDT Narrative Resulting Agency Comment Spec In Lab Kia Viramontes DO CHEMISTRY ORDERABL ES Performing Organization Address [facility] de Phone Number [facility] [place] [address] * DNA Antibody (Double-Stranded) (03/18/2023 2:14 PM EDT) Pathologist [facility] dsDNA Ab <0.6 <=15.0 IU/mL [facility] Comment: <10 negative 10-15 equivocal >15 positive This dsDNA antibody result was generated using a fluoroenzyme immunoassay on the [employer] Platform 250 analyzer. This quantitative test is designed to detect IgG antibodies directed against double stranded DNA in human serum. The presence of antibodies that recognize dsDNA is a highly specific marker for systemic lupus erythematosus. Please note that as of 05/26/2022 that this testing is performed by the Special Chemistry Laboratory at [facility]. This change in testing location is associated with a change is testing method and reference intervals. Please review the results of this test in association with the posted reference intervals. Blood 03/18/2023 2:14 PM EDT 03/19/2023 7:19 AM EDT Narrative Resulting Agency Comment Spec In Lab Kia James Wander DO LAB SEND OUT ORDER JODIE Performing Organization Address City/[facility] Co de Phone Number [facility] [place] [address] * (ABNORMAL) FRANCISCO Ab by IFA (03/18/2023 2:14 PM EDT) Pathologist [facility] FRANCISCO Ab Screen Test ? Result ?Flag ??Unit ??RefValue Antinuclear Ab, HEp-2 ?Positive 1:2560 ??@ ?<1:80 (Negative) ??Substrate, S ? ADDITIONAL INFORMATION --------- ?Method: Immunofluorescence using HEp-2 cellular substrate. ??FRANCISCO Titer: ? 1:2560 ??FRANCISCO Pattern: ? Speckled ?Test Performed by: ?[facility] ?[address] [place] [address] ?Electrician Control Equipment: Raymond Chaudhry M.D. Ph.D.; CLIA# [id number] ([id number]) [facility] Blood 03/18/2023 2:14 PM EDT 03/18/2023 3:02 PM EDT Narrative Resulting Agency Comment Spec In Lab Kia Viramontes DO CHEMISTRY ORDERABL ES [facility] [address] [place] [address] * Comprehensive metabolic panel (non-fasting) (03/18/2023 2:14 PM EDT) Glucose 93 65 - 199 mg/dL [facility] Comment:Diabetes: >=200 mg/d L plus symptoms Blood Urea Nitrogen 18 8 - 18 mg/dL [facility] Creatinine 0.99 0.70 - 1.20 mg/dL [facility] Sodium 141 135 - 145 mmol/L [...] Lab Kia Viramontes DO [place]MI[place] [address] documented in this encounter Visit Diagnoses Diagnosis Positive FRANCISCO (antinuclear antibody) Other and unspecified nonspecific immunological findings documented in this encounter Care Teams Rodding Anode Worker Relationship Specialty Start Date End Date Magdalena Acosta MD [address] [place] [address] PCP - General Family Medicine 02/05/23 documented as of this encounter
--- OUTSIDE RECORDS SUMMARY | 2024-05-18 14:05 | XMS_ITS | Encounter Summary ---
[place] [address] Care Team Providers Care Family Services Coordinator Name Role Phone Magdalena Acosta MD Primary Care Provider [phone] Encounter Details Date Type Department Care Team [...] PM EDT Hospital Encounter Outpatient [place] [phone] Markel Borjas MD [facility] DR [place]AT[place] [address] 05/29/2024 2:00 PM EDT - 05/29/2024 2:43 PM EDT Surgery Outpatient [place] [phone] Markel Borjas MD [facility] DR [place] [address] (OSC MSURG) BONE MARROW BIOPSY AND ASPIRATION; DIAGNOSTIC (WRVU 1.44) 06/23/2024 2:00 PM EST Office Visit Hematology [place] [address] Markel Borjas MD [facility] [address] [place] [address] 03/01/2025 4:15 PM EDT Office Visit Dermatology at [place] [address] [place] [address] Marek Bonilla MD [address] [place] [address] Scheduled Procedures Name Priority Associated Diagnoses Date/Ti me (OSC MSURG) BONE MARROW BIOPSY AND ASPIRATION; DIAGNOSTIC (WRVU 1.44) Anemia, in pt with longstanding neutropenia 05/29/2024 2:00 PM EDT documented as of this encounter Visit Diagnoses Not on filedocumented in this encounter Care Teams Family Services Coordinator Relationship Specialty Start Date End Date Magdalena Acosta MD [address] [place] [address] PCP - General Family Medicine 02/05/23 documented as of this encounter
--- OUTSIDE RECORDS SUMMARY | 2024-05-18 14:05 | XMS_ITS | Encounter Summary ---
Author Organization [facility] [place] [address] Care Team Providers Care Human Resources Advisor Name Role Phone Deborah Quiroga APRN Primary Care Provider [phone] Encounter Details Date Type Department Care Team (Late st Contact Info) Description 11/09/2022 11:30 AM EDT - 11/09/2022 12:30 PM [place] [address] Nitesh Escobedo MD [facility] [place] [address] CARDIAC CATHETERIZATION Social History Tobacco Use Types [...] 02/05/2023 2:30 PM Marek Bonilla MD [facility] New Medications to be Picked Up None For questions regarding this document or issues relating to this hospitalization on the Medical Service, please contact your inpatient physician through the [facility] Bulk Plant Manager . Issues afterhours and on weekends will be handled by the Hospitalist staff on-call. * Attachments The following attachments cannot be sent through Care Everywhere. * Coronary Angiogram: Post-op (Nauruan) * Right Heart Catheterization: Pulmonary Artery Catheterization: Post-op (Nauruan) documented in this encounter Medications at Time of Discharge Medication Sig Dispensed Refills Start Date End Date nystatin (MYCOSTATIN) 100,000 unit/gram Powder Apply topically 2 times daily as needed. 10/22/2022 General CyberneticsTouch Verio test strips Strip USE DAILY 01/03/2022 General [employer] Risk Management Delica Plus Lancet 33 gauge Misc USE [...] MD - 11/09/2022 11:20 AM EDT . [facility] Interventional Cardiology Adult Pre-Procedure H&P Update: Cardiac Catheterization Purnima Thacker [id number] 1955 Chief Complaint: BONILLA HPI: Purnima Thacker [...] Marrero MD Interventional Cardiology 11/09/22 11:43 AM [facility] Pager: [phone] documented in this encounter Plan of Treatment Upcoming Encounters Date Type Department Care Team (Late st Contact Info) Description 05/29/2024 2:00 PM EDT Hospital Encounter [place] [address] Markel Borjas MD [facility] DR [place] [address] 05/29/2024 2:00 PM EDT - 05/29/2024 2:43 PM EDT Surgery [place] [phone] Markel Borjas MD [facility] DR [place] [address] (OSC MSURG) BONE MARROW BIOPSY AND ASPIRATION; DIAGNOSTIC (WRVU 1.44) 06/23/2024 2:00 PM EST Office Visit Hematology [place] [phone] Markel Borjas MD [facility] DR [place]EM[place] [address] 03/01/2025 4:15 PM EDT Office Visit Dermatology at [place] [address] [place] [address] Marek Bonilla MD [address] DERMATOLOG[address] [place], [place] [id number] Scheduled Procedures Name Priority Associated Diagnoses Date/Ti me (OSC MSURG) BONE MARROW BIOPSY AND ASPIRATION; DIAGNOSTIC (WRVU 1.44) Anemia, in pt with longstanding neutropenia 05/29/2024 2:00 PM EDT documented as of this encounter Procedures Procedure Name Priority Date/Time Associated Diagnosis Comments CARDIAC CATHETERIZATION Routine 11/10/19 1:05 PM EDT Aortic valve stenosis, etiology of cardiac valve disease unspecified Cath [facility] Left Heart Cath & Arts W/Inj & Angio Img S&I ([id number]) 11/09/2022 11:51 AM EDT Aortic valve stenosis, etiology of cardiac valve disease unspecified EKG 12-LEAD Routine 11/09/2022 11:17 AM EDT Aortic valve stenosis, etiology of cardiac valve disease unspecified documented in this encounter Results * CARDIAC CATHETERIZATION (11/09/2022 1:05 PM EDT) Anatomical Region Laterality Modality Other Narrative 11/09/2022 2:01 PM EDT ?[facility] ? Cardiac Catheterization/Intervention Report ? Patient Name: Kirstie, Purnima M. ? Procedure Date: 11/09/2022 ? A #: [id number] ? Primary Physician: Nitesh Escobedo ? Case #: [id number] ? File Name: [id number] ? Catheterization Order Number: [id number] ? [facility] ? Final Report [place], [place] ? Patient Name: ? Purnima M. Kirstie ? ID#: ?[id number] ? : ?1955 ? Procedure Date: ? [...] (Bezet) 457 ms MUSE SYSTEM Calculated P Wideman 44 degrees MUSE SYSTEM Calculated R Wideman 33 degrees MUSE SYSTEM Calculated T Wideman 30 degrees MUSE SYSTEM INTERPRETATION Sinus rhythm Occasional Premature ventricular complexes Otherwise normal ECG When compared with ECG of 21-SEP-2016 12:26, Premature ventricular complexes are now Present WA interval has decreased Nonspecific T wave abnormality has replaced inverted T waves in Inferior leads I personally reviewed the tracing and edited the fellows interpretation Confirmed by fellow MD Anitha, Carissa ([id number]) on 11/09/2022 6:17:28 PM Confirmed by Elsa [...] MD) documented in this encounter Care Teams Human Resources Advisor Relationship Specialty Start Date End Date Deborah Quiroga, MANUFACTURING QUALITY INSPECTOR PCP - General Family Medicine 03/24/16 02/04/23 documented as of this encounter
--- OUTSIDE RECORDS SUMMARY | 2024-05-18 14:05 | XMS_ITS | Encounter Summary ---
[place] [address] Care Team Providers Care Livestock Farm Workers Name Role Phone Magdalena Acosta MD Primary Care Provider [phone] Reason for Visit * Reason Comments Suture / Staple Removal Encounter Details Date Type Department Care Team (Late st Contact Info) Description 02/16/2023 10:00 AM EDT Office Visit Dermatology at [place] [address] [place] [phone] Marek Bonilla MD [address] DERMATOLOGY [place], [place] [phone] Visit for suture removal Social History Tobacco [...] PM EDT Hospital Encounter Out[place] [address] Markel Borjas MD [facility] [facility] [address] HEMATOLOGY [place] [address] 05/29/2024 2:00 PM EDT - 05/29/2024 2:43 PM EDT Surgery [place] [phone] Markel Borjas MD [facility] [address] HEMATOLOGY [place] [address] (OSC MSURG) BONE MARROW BIOPSY AND ASPIRATION; DIAGNOSTIC (WRVU 1.44) 06/23/2024 2:00 PM EST Office Visit Hematology [place] [phone] Markel Borjas MD [facility] [address] HEMATOLOGY [place] [address] 03/01/2025 4:15 PM EDT Office Visit Dermatology at [place] [address] [place] [phone] Marek Bonilla MD [address] [address] DERMATOLOGY [place], [place] [phone] Scheduled Procedures Name Priority Associated Diagnoses Date/Ti me (OSC MSURG) BONE MARROW BIOPSY AND ASPIRATION; DIAGNOSTIC (WRVU 1.44) Anemia, in pt with longstanding neutropenia 05/29/2024 2:00 PM EDT documented as of this encounter Visit Diagnoses Diagnosis Visit for suture removal Encounter for removal of sutures documented in this encounter Care Teams Livestock Farm Workers Relationship Specialty Start Date End Date Magdalena Acosta MD [address] [place] [address] PCP - General Family Medicine 02/05/23 documented as of this encounter
--- OUTSIDE RECORDS SUMMARY | 2024-05-18 14:05 | XMS_ITS | Encounter Summary ---
[place] [address] Care Team Providers Care Facility Supervisor Name Role Phone Magdalena Acosta MD Primary Care Provider [phone] Reason for Visit * Auth/Cert (Routine) Specialty Diagnoses / Procedures Referred By Contac t Referred To Contact Diagnoses Symptomatic severe aortic stenosis with low ejection fraction NSTEMI, CHF Enrique Chua MD [facility] [place] [address] [facility] Referral ID Status Reason Start Date Expiration Date Visits Re quested Visits Authorized [id number] 1 1 Encounter Details Date Type Department Care Team (Late st Contact Info) Description 05/12/2023 2:50 PM EDT - 05/12/2023 3:50 PM EDT [place] [address] Antelmo Sharma MD [facility] [place] [address] CARDIAC CATHETERIZATION Social History Tobacco Use Types [...] in this encounter Discharge Summaries * Vinod uJárez PA - 05/22/2023 7:54 AM EDT Inpatient - Discharge Summary Patient Name: Purnima Thacker Patient Age: 67 y.o. Birthdate: 1955 Language: German Race: White Ethnicity: Not nor Admit Date: 05/08/2023 Discharge Date: 05/22/2023 Attending Physician: Alirio Hudson MD Follow-up Recommendations for Providers: Please continue routine management of cardiovascular risk factors including blood pressure, lipids,glucose, etc. Please note any medication changes. Patient to follow up with PCP, Magdalena Acosta MD, or Primary Forest Nursery Supervisor, Avis Mejia MD, in ~ 7-10 days. Patient to follow up with Irb Compliance Coordinator, Dr. Antelmo Sharma, in 2 weeks with an EKG, Echo, CBC, and CMP. Patient to follow up with Nephrology, their office to arrange. Hzod-Jcxbrm-cd interval: After initial 30 day follow-up appointment , all TAVR patients will follow-up again in one year with an echo. 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 Left coronary protection with left main MINNA. Hospital Course: #Severe prosthetic s/p valve in valve TF TAVR #Low coronary heights s/p left main stent for coronary protection #Type 2 NSTEMI, present on arrival, resolved #Acute decompensated HFrEF #Cardiogenic shock #EVANS / Cardiorenal syndrome Purnima Thacker was admitted to [facility] on 05/08/2023 via the Cardiology Service [...] TAVR and she was brought to the biology laboratory assistant the following morning where Drs. [...] if you have questions. Please call your Irb Compliance Coordinator's office if you have any discharge or drainage from your procedural sites. Your Irb Compliance Coordinator, Dr. Antelmo Sharma and/or the Ux Developer may be reached at . Antibiotic prophylaxis: You will need to take antibiotics prior to many invasive tests and treatments, such as dental cleaning, which should be done every 6 months. Your primary care physician or your dentist can prescribe this medication. Please refer to the card with the [place] [employer] Guidelines for more information. You have been provided with a copy of this card. Please refer to the [place] Heart [employer] Guidelines for more information. Good [...] friends, go to a movie, go to baptism, etc. Heavy activities: No hunting, skiing, jogging, [...] should resume a low fat, low cholesterol, [employer] Heart Association Diet Driving: No restrictions. Shower/Bath: You may shower daily. No baths, soaking, or swimming for the first week. Wound care: Wash the sites daily with soap and rinse well, pat dry. Assess for any signs of infection such as increased redness, pain, warmth or drainage. Please call your employment supervisor's office if you have any discharge or drainage from your procedural sites. If there is a lot of swelling, apply mamta wraps during the day and remove at bedtime. Elevate your legs when you are sitting. Home oxygen therapy: N/A Follow up appointments: Please schedule a follow-up appointment with your PCP, Magdalena Acosta MD, or Primary Forest Nursery Supervisor in ~ 7-10 days. You have a follow-up appointment with your Irb Compliance Coordinator, Dr. Antelmo Sharma, in 2 weeks with an EKG, Echo, and labs prior to your appointment. You will need follow-up with Nephrology, their office will arrange. Bqgt-Ryssrp-so interval: After initial 30 day follow-up appointment [...] 11:00 AM Magdalena Peralta MD Rheumatology at [facility] Arrive at: [facility] Professional Area [phone] 02/11/2024 2:00 PM Marek Bonilla MD Dermatology at [place] Arrive at: [facility] [address] [phone] Future Orders Complete By Expires Type and Screen Future Surgery, [facility] SAME DAY PROGRAM ONLY) [UGA1165 Custom] 05/11/2023 Process Instructions: This test is intended ONLY for patients with upcoming surgery for testing prior to the day of surgery obtained through the same day program (4V or SDP). For ALL OTHER PATIENTS, order a Type and Screen (OBZ936) This order includes the physician order for an ABO Recheck if requested by the Blood Bank. Scheduling Instructions: Comments: Questions: Date of surgery: CBC (with Diff) [KMM505 Custom] 06/05/2023 12/05/2023 Process Instructions: INCLUDES: WBC, RBC, Hgb, Hct, Platelets, RBC Indices and Differential Scheduling Instructions: Comments: Questions: Comprehensive metabolic panel (non-fasting) [LAB17 Custom] 06/05/2023 08/20/2023 Process Instructions: INCLUDES: Calcium, T Protein, Albumin, AST, ALT, Alk Phos, T Bili, BUN, Creat, GFR, Glucose, Lytes. Scheduling Instructions: Comments: Questions: Echocardiogram Transthoracic [89487 CPT(R)] 06/05/2023 12/05/2023 Process Instructions: Scheduling Instructions: Questions: Where will study be performed?: [facility] Clinics Does the patient have Congenital Heart Disease?: Does patient require sedation?: GA rationale: EKG 12 Lead [32505 CPT(R)] 06/05/2023 12/05/2023 Process Instructions: Scheduling Instructions: Questions: Which location will this be performed?: [place] Is a rhythm strip needed?: No [facility] Devices [EQ161 Custom] As directed Process Instructions: Scheduling Instructions: Questions: Device Needed: WALKER (E0143) Patient Height (cm): 154.9 cm (5' 0.98) Patient Weight: 75.4 kg (166 lb 3.2 oz) Diagnosis: Unsteady gait when walking Referral to Cardiac Rehab [HNE036 Custom] As directed Process Instructions: If no [...] DOCUMENTATION FOR VNA SERVICES PATIENT'S LOCATION: Purnima Thakcer [address] [place] [phone] (home) Store Shopper's Name: Irineo and brother Raymond In discussion with the attending physician, it is certified that this patient is under his/her careand that MD, or an COLORED LEATHER SETTER, PICKED EDGE SEWING MACHINE OPERATOR, or PA who is working directly with him/her, had a tylt-sx-cgtq encounter that meets the physician awty-yv-ipaf encounter requirements with this patient on 05/22/2023. [...] for managing ADLs. HOME HEALTH CARE AGENCY: [facility]. [address] [facility] [address] PHONE: [phone] FAX: [phone] Start of care: Ideally 24-48 hours after [...] patient's PCP: Magdalena Acosta MD [address] [facility] [phone] All VNA agencies which cover the area of patient's residence have been reviewed, either verbally joao writing, and patient has chosen the home health care agency noted. Questions: Disciplines Requested: Physical Therapy Occupational Therapy Discharge References/Attachments None Arrangements for VNA/home care: As above. (delete if no VNA) Signed: EKATERINA NAVARRETE [facility] Section of Cardiac Surgery Date: 05/22/2023 CC: Magdalena Acosta MD OlaMario Alberto maxwell MD [address] [place] [address] [place] [address] documented in this encounter Discharge Instructions * Patient Instructions* Vinod Juárez PA - 05/22/2023 9:32 AM EDT TAVR Discharge Instructions: Call your doctor if: You have a fever of greater than 101 degrees, shaking chills, if you develop redness or drainage from your procedure sites, or if you have questions. Please call your Irb Compliance Coordinator's office if you have any discharge or drainage from your procedural sites. Your Irb Compliance Coordinator, Dr. Antelmo Sharma and/or the Ux Developer may be reached at . Antibiotic prophylaxis: You will need to take antibiotics prior to many invasive tests and treatments, such as dental cleaning, which should be done every 6 months. Your primary care physician or your dentist can prescribe this medication. Please refer to the card with the [place] Heart [employer] Guidelines for more information. You have been provided with a copy of this card. Please refer to the [place] Heart [employer] Guidelines for more information. Good [...] friends, go to a movie, go to baptism, etc. Heavy activities: No hunting, skiing, jogging, [...] should resume a low fat, low cholesterol, [employer] Heart [employer] Diet Driving: No restrictions. Shower/Bath: You may shower daily. No baths, soaking, or swimming for the first week. Wound care: Wash the sites daily with soap and rinse well, pat dry. Assess for any signs of infection such as increased redness, pain, warmth or drainage. Please call your employment supervisor's office if you have any discharge or drainage from your procedural sites. If there is a lot of swelling, apply mamta wraps during the day and remove at bedtime. Elevate your legs when you are sitting. Home oxygen therapy: N/A Follow up appointments: Please schedule a follow-up appointment with your PCP, Magdalena Acosta MD, or Primary Forest Nursery Supervisor in ~ 7-10 days. You have a follow-up appointment with your Irb Compliance Coordinator, Dr. Antelmo Sharma, in 2 weeks with an EKG, Echo, and labs prior to your appointment. You will need follow-up with Nephrology, their office will arrange. Mtip-Pxbonm-qz interval: After initial 30 day follow-up appointment [...] ins ( te) Haven Ba, PT Pager: [phone] Physical Therapy Inpatient Rehabilitation Department * Nico [...] 0600 and on the weekends please page [phone]. * Jory Paniagua - 05/20/2023 3:52 PM [...] vomiting Last Bowel Movement: 05/20/23 Jory Paniagua Shaper Set Up Operator * Tong Mike, OT - 05/20/2023 [...] three steps to enter. DME: none used MACHINE PACKAGER Baseline ADL/Mobility: Independent with ADLs and IADLs. [...] Discharge planning. Total Minutes, Occupational Therapy: 28 ([phone]) OT Evaluation Code Rationale: Diagnosis & Pertinent Co-Morbidities affecting Plan of Care: see PMHx Occupational Profile & Client History: Brief Expanded Extensive x Assessment of Occupational Performance: 1-3 performance deficits 3-5 performance deficits x 5 + performance deficits Clinical Decision Making: Low Moderate High x Clinical decision making of moderate complexity using standardized patient assessment instrument and measurable assessment of functional outcome. Pager: [phone] TONG MIKE OT 05/20/2023 Occupational Therapy Rehabilitation [...] 0600 and on the weekends please page [phone]. * Rylie Rodriguez MD - 05/19/2023 3:59 [...] and plan. Cynthia Blackburn MD Nephrology Pager: [phone] * Diana Espino - 05/19/2023 1:49 PM EDT Straight Cutter Machine Encounter Note Patient Name: Purnima Thacker : [id number] MR#: [id number] Admit Date: 05/08/2023 9:14 AM Hospital Day [...] as stated. Total Minutes, Physical Therapy: 38 (3434-8861) Henrik Navarrete MACHINE PACKAGER Pager: [phone] Physical Therapy Inpatient Rehabilitation Department * Nico [...] 0600 and on the weekends please page [phone]. * Laure Ricks PA - 05/19/2023 7:56 [...] Ricks PA-C Interventional Radiology IR Team Pager [phone] * Consuelo Espinoza RN - 05/18/2023 4:13 PM EDT ANGIO NURSING DATABASE Name: Purnima Thacker Date of : 1955 AGE: 67 y.o. Address: [address] [place] [phone] (home) Mobile: No relevant phone numbers on [...] Mild coronary artery disease by [facility] 11/09/2022 I25.10 Heart failure with reduced [...] and plan. Cynthia Blackburn MD Nephrology Pager: [phone] * Magdalena Puri, OIL HEATER INSTALLER - 05/18/2023 10:51 AM EDT Images from the original note were not included. [facility] [place] [address] STRUCTURAL HEART DISEASE CONSULTATION NOTE PRIMARY CARE [...] stenosis. She is now status post TAVR Rnmsg-na-Mfqwg with a 23 mm Lai 3 THV 05/12/[address] Sharma. Preliminary findings: Successful right transfemoral TAVR Rdwba-lc-Worbl with a 23 mm Lai 3 THV. [...] Mild coronary artery disease by [facility] 11/09/2022 Heart failure with reduced ejection fraction [...] tablet 2 tablet 2 tablet Oral Daily SchuylerMara ernandez APRN 2 tablet at 05/16/232 bisacodyL (Dulcolax) suppository 10 mg 10 mg Rectal Daily PRN SchuylerMara ernandez APRN melatonin tablet 6 mg 6 [...] stenosis. She is now status post TAVR Vqwxm-ob-Xhuip with a 23 mm Lai 3 THV [...] Magdalena Puri APRN Structural Heart Team Pager [phone] Team Office Please see addendum by Dr. Sharma for final plan and recommendations Associated attestation - Antelmo Sharma MD - 05/19/2023 10:52 PM EDT I have reviewed Magdalena Puri APRN's above history and I agree with the details as written. The assessment and plan were formulated in discussion with me and I agree with them as documented. Antelmo Sharma MD Pager [phone] * Nico Palacios PA - 05/18/2023 8:13 [...] 0600 and on the weekends please page [phone]. * Loli Hernandez, PT - 05/17/2023 5:27 [...] seconds. -(Nerissa et al., 2008) References: Sriram Mackya, Corina Louise et al. (2000). Lower extremity [...] plan as stated. Time IN / OUT: 9687-9976 Total Minutes, Physical Therapy: 54 Billing Code: te-sx2, te-f, angely LOLI HERNANDEZ PT Pager: [phone] Physical Therapy Inpatient Rehabilitation Department * Cynthia [...] Well controlled. Cynthia Blackburn MD Nephrology Pager: [phone] * Mara Serrano, OIL HEATER INSTALLER - 05/17/2023 8:26 AM EDT Cardiac Surgery [...] 0600 and on the weekends please page [phone]. * Guerda Del Valle - 05/16/2023 10:44 AM EDT Nutrition Services Note - Low Nutrition Acuity Purnima Thacker is a 67 y.o. female Reason for intervention: hospital day 9 Nutrition Plan: Continue diet order Encourage good PO Lasix and Zofran noted Added special serve: open containers Monitor weight Patient scheduled for a hospital day 9 nutrition evaluation. Script Worker met with pt at bedside. Pt reports that her appetite and PO has much improved since admission. Denies nausea/vomiting or trouble chewing/swallowing. Script Worker provided snack list but pt not interested in adding snacks at this time. Her only concern was that she is worried that she will eat too much which will cause too much pressure in her stomach. Script Worker assured pt and suggested eating smaller [...] Last Bowel Movement: 05/10/23 Guerda Del Valle Shaper Set Up Operator * Vinod Juárez PA - 05/16/2023 [...] 0600 and on the weekends please page [phone]. * Michael Jeffers MD - 05/16/2023 8:11 AM EDT Images from the original note were not included. Hypertension-Nephrology Inpatient Follow-up Purnima Thacker [id number] 1955 ID: 67 y.o. old female seen [...] IRONSAT 12 (L) 05/16/2023 SFOLATE >20.0 07/03/2022 [id number] 07/03/2022 Lab Results Component Value Date [...] Dr. Ayoub. Please contact me at phone: [phone] or pager: [phone] with any questions. Michael Jeffers MD Nephrology & Hypertension Fellow Associated attestation - rKistopher Ayoub MD - 05/16/2023 2:15 PM EDT [...] -Nephrology consulted, labs and renal US ordered -[employer] removed, ambulated around the unit -bilateral pleural [...] 0600 and on the weekends please page [phone]. * Hortencia Cody MD - 05/15/2023 2:07 [...] not included. Hypertension-Nephrology Inpatient Follow-up Purnima Thacker [id number] 1955 ID: 67 y.o. old female seen [...] HGB 7.8 (L) 05/13/2023 SFOLATE >20.0 07/03/2022 [id number] 07/03/2022 Lab Results Component Value Date [...] Dr. Ayoub. Please contact me at phone: [phone] or pager: [phone] with any questions. Michael Jeffers MD Nephrology [...] last 720 hours. T/L/D Art ETT CVL [place] ASSESSMENT, MANAGEMENT, and DECISION MAKIN y.o. female [...] and weak.?? Objective: Pt seen in the [facility] for initial evaluation. Pt in chair at [...] outlined inthis evaluation. HAVEN BA, PT Pager: [phone] Physical Therapy Inpatient Rehabilitation Department Time IN / OUT: 1496-4225 Total time: Total Minutes, Physical Therapy: 30 [...] on the weekends please page [phone]. * Antelmo Sharma MD - 05/14/2023 7:56 AM EDT Images from the original note were not included. [facility] [place] [address] STRUCTURAL HEART DISEASE CONSULTATION NOTE PRIMARY CARE PROVIDER: Magdalena Acosta MD REFERRING PROVIDER: Mario Alberto Chin REASON FOR CONSULTATION: Bioprosthetic aortic valve stenosis HISTORY OF PRESENT ILLNESS: Patient ID: Purnima Thacker is a 67 y.o. female with a past medical history significant for historyof SAVR 09/2016 (bovine pericardial 25 mm), HFrEF, HTN, DLP, INCOLAS, mixed connective tissues disease, and other chronic medical comorbidities, who has been admitted to the cardiovascular service with acute on chronic decompensated systolic heart failure in the context of bioprosthetic aortic valve stenosis. She is now status post TAVR Lwgca-pq-Axlms with a 23 mm Lai 3 THV 05/12/[address] Sharma. Preliminary findings: Successful right transfemoral TAVR Dhkcd-ly-Pifzs with a 23 mm Lai 3 THV. [...] Mild coronary artery disease by [facility] 11/09/2022 Heart failure with reduced ejection fraction [...] stenosis. She is now status post TAVR Jtevh-gc-Iovuw with a 23 mm Lai 3 THV 05/12/[address] Sharma. Janet TAVR case notable for coronary LAD protective MINNA. Status post TAVR, the patient was transferred to [facility] for pressor and inotropic support. [...] Brody Kaplan APRN Structural Heart Team Pager [phone] Team Office Please see addendum by Dr. [...] exposure. Nephrology consultationtoday. Antelmo Sharma MD Pager [phone] * Antelmo Cardenas RN - 05/14/2023 5:18 AM EDT Pt AOx4, complaining of mild/moderate generalized pain (states her Meloxicam is effective at home) currently refusing prn oxycodone. NAEON, hemodynamically stable on Milrinone, Maps >65, ST in yoc566's down to NSR with frequent multifocal PVC's. [...] original note were not included. [facility] [place] [address] STRUCTURAL HEART DISEASE PROGRESS NOTE PRIMARY CARE [...] stenosis. She is now status post TAVR Owokb-bl-Vwyis with a 23 mm Lai 3 THV 05/12/[address] Sharma. Preliminary findings: Successful right transfemoral TAVR Zftbf-eq-Xlfer with a 23 mm Lai 3 THV. [...] or perforation. Interval Events: - Transferred to [facility] post- TAVR for pressor/inotropic support [...] Mild coronary artery disease by [facility] 11/09/2022 Heart failure with reduced ejection fraction [...] stenosis. She is now status post TAVR Lcclw-en-Wbqpq with a 23 mm Lai 3 THV 05/12/[address] Sharma. Janet TAVR case notable for coronary LAD protective MINNA. Status post TAVR, the patient was transferred to [facility] for pressor and inotropic support. [...] Brody Kaplan APRN Structural Heart Team Pager [phone] Team Office Please see addendum by Dr. [...] DAPT moving forward. Antelmo Sharma MD Pager [phone] * Bonita Mgiuel PA - 05/13/2023 8:30 AM EDT Cardiac Surgery Progress Note Purnima Thacker is a 67 y.o. 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 PMH of s/p tissue AVR (2017), mixed connective tissue disease HTN, HLD, NICOLAS, diverticulosis, rosacea, essential tremor, and depression. 24h Events: From biology laboratory assistant for above procedure Extubated at [...] soft b/l, no evidence of hematoma. Tubes/Lines/Drains: [employer], RIJ, A-line, Art, PIV Assessment/Plan: 67 y.o. [...] 0600 and on the weekends please page [phone]. * Onelia Schwartz MD - 05/12/2023 1:44 [...] Mild coronary artery disease by [facility] 11/09/2022 Heart failure with reduced ejection fraction [...] FiO2 weaned to 40%. 1105: ABG 7.34/42/73/22 3291-5939: SBT performed and passed on these settings [...] PCP: Magdalena Acosta MD PCP phone number: [phone] Date of Admission: 05/08/2023 ( Hospital Day [...] 1447 PHART -- 7.34* 7.34* -- -- JVS2VVU -- 30* 30* -- -- PO2ART -- 72* 81* -- -- ULE5JDF -- 16.0* 15.7* -- -- LACTATEVEN 2.4* 2.7* 2.7* 4.8* 2.9* VBG (Venous Blood Gas) Recent Labs 05/12/23 0700 05/12/2331705/12/2310505/11/23193905/11/23 144 LACTATEVEN 2.4* 2.7* 2.7* 4.8* 2.9* Mixed Venous Sat Recent Labs 05/12/23 0508 05/12/23 0321 05/12/23 0114 05/12/23 0030 O2HCFI0 30.7 32.7 37.3 25.1 Objective: Vitals Last [...] questions please contact the health childcare center director that requested your imaging first. Cardiac [...] questions please contact the health childcare center director that requested your imaging first. Angiogram [...] questions please contact the health childcare center director that requested your imaging first. Chest [...] questions please contact the health childcare center director that requested your imaging first. Chest [...] questions please contact the health childcare center director that requested your imaging first. Assessment [...] and inotrope. She is planned for a zjnkc-ap-kqfqy TAVR this morning, which should hopefully improve [...] of Cardiovascular Medicine [facility] Pin Ball Machine Mechanicframe nailer [facility] * Noreen Deutsch RN - 05/12/2023 [...] Mild coronary artery disease by [facility] 11/09/2022 Heart failure with reduced ejection fraction [...] 05/11/2023 4:11 PM EDT Reported off to CEMETERY KEEPER and pt transferred over in the bed for higher level of care. * Antelmo Sharma MD - 05/11/2023 9:45 AM EDT Images from the original note were not included. [facility] [place] [address] STRUCTURAL HEART DISEASE CONSULTATION NOTE PRIMARY CARE [...] who had been referred for possible TAVR yuyzg-ze-mwflo evaluation. Her primary symptoms are of dyspnea [...] otherwise negative. Ms. Thacker is originally from [facility]. 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 [...] Mild coronary artery disease by [facility] 11/09/2022 Heart failure with reduced ejection fraction [...] hour(s)) Lactate, whole blood, send to lab ([facility]) Result Value Ref Range Lactate WB 3.1 (H) 0.5 - 2.2 mmol/L Heparin (unfractionated) Level Result Value Ref Range Heparin UFH Level 0.46 IU/mL Lactate, whole blood, send to lab ([facility]) Result Value Ref Range Lactate WB 1.8 [...] leads Confirmed by MD Harshil, Enrique Bell ([id number]) on 05/10/2023 8:11:46 AM Cardiac Cath 11/09/2022 [...] alert Dr. Hudson of her inpatient status, [place] primary cardiac surgeon. Based on recent clinic visit, tentative plan had been for TAVR JANET issa ferrera given her chronological age. Cardiac cath 11/09/2022 notable for non-obstructive coronary disease. TAVR CTAs planned for today. Will review her case with cardiac surgery to determine best timing and therapies for her valve intervention. Addendum 05/11/2023 6:48 PM Due to decompensating HFrEF, she was transferred to [facility] this afternoon for further management. TAVR CT imaging support for adequate ileofemoral access. Given her acute deterioration today, will planfor RTF TAVR on 05/12/2023. Brody Kaplan APRN Structural Heart Disease Pager [phone] Please see addendum by Dr. Sharma for [...] signed and dated. Antelmo Sharma MD Pager [phone] * Harini Lance MD - 05/11/2023 6:06 AM EDT Images from the original note were not included. Cardiology Progress Note Patient info: Name: Purnima Thacker : 1955 PCP: Magdalena Acosta MD PCP phone number: [phone] Date of Admission: 05/08/2023 ( Hospital Day [...] questions please contact the health childcare center director that requested your imaging first. : [...] Mild coronary artery disease by [facility] 11/09/2022 Hyperlipidemia, unspecified NICOLAS (obstructive sleep apnea) [...] PCP: Magdalena Acosta MD PCP phone number: [phone] Date of Admission: 05/08/2023 ( Hospital Day [...] Mild coronary artery disease by [facility] 11/09/2022 Hyperlipidemia, unspecified NICOLAS (obstructive sleep apnea) [...] PCP: Magdalena Acosta MD PCP phone number: [phone] Date of Admission: 05/08/2023 ( Hospital Day [...] Gas) No results found for: PHART, PO2ART, RVF9ABO, NPF0CKT Microbiology: Microbiology Results (Last 30 days) No [...] PPx: Diet: Daily Healthy Menu Choices/Cardiac diet ([facility]-Diet) Lines: Peripheral IV Line - Single Lumen [...] Mild coronary artery disease by [facility] 11/09/2022 Hyperlipidemia, unspecified NICOLAS (obstructive sleep apnea) [...] Mild coronary artery disease by [facility] 11/09/2022 I25.10 Heart failure with reduced ejection fraction due to heart valve disease I50.20, I38 Cardiogenic shock R57.0 S/P TAVR (transcatheter aortic valve replacement) Z95.2 Past Medical History: Diagnosis Date Anemia Past Surgical History: Procedure Laterality Date PRG CATH PLTX LEFT HEART CATH & ARTS W/INJ & ANGIO IMG S&I N/A 11/09/2022 CORONARY ANGIOGRAPHY; W [facility],POSSIBLE PCI (WRVU 5.6) performed by Mario Alberto [...] Mild coronary artery disease by [facility] 11/09/2022 I25.10 Heart failure with reduced ejection fraction due to heart valve disease I50.20, I38 Cardiogenic shock R57.0 S/P TAVR (transcatheter aortic valve replacement) Z95.2 Past Medical History: Diagnosis Date Anemia Past Surgical History: Procedure Laterality Date PRG CATH PLTX LEFT HEART CATH & ARTS W/INJ & ANGIO IMG S&I N/A 11/09/2022 CORONARY ANGIOGRAPHY; W [facility],POSSIBLE PCI (WRVU 5.6) performed by Mario Alberto [...] Hgb 10.5 CMP - Cr 1.1 BNP 87895 HsTrop 1358 Lactate 1.6 D-dimer 1183 Interval History Patient was admitted to [facility] due to concern on low [...] Klaudia Reid MD Internal Medicine PGY-1 Pager [phone], M1-S1 Service Associated attestation - Juan Luis Gonzalez MD - 05/08/2023 10:00 PM EDT Cardiology Attending Addendum Active Hospital Problems Diagnosis Symptomatic severe aortic stenosis with low ejection fraction Heart failure with reduced ejection fraction due to heart valve disease Mild coronary artery disease by [facility] 11/09/2022 Hyperlipidemia, unspecified History of aortic valve [...] PCP: Magdalena Acosta MD PCP phone number: [phone] Date of Admission: 05/08/2023 ( Hospital Day [...] Hgb 10.5 CMP - Cr 1.1 BNP 69554 HsTrop 1358 Lactate 1.6 D-dimer 1183 Vasoactive [...] #Routine Diet: Daily Healthy Menu Choices/Cardiac diet ([facility]-Diet) DVT Prophylaxis: heparin gtt GI Prophylaxis: none [...] 10/2022 #Medical comorbidities: Mixed connective tissues disease, NICLOAS on CPAP, HTN, obesity (BMI 32) In [...] to the planned procedure. Hand Hygiene: The machinery dismantler did perform hand hygiene prior to arterial [...] Successful arterial line placement. Crispin Timmons MD Ux Developer Associated attestation - Onelia Schwartz MD [...] (flow was non-pulsatile) and appearance of blood. [employer]-Marily catheter was placed and locked at 55 [...] information for follow-up Home Health & H[facility]ice, [place] [address] [place] [address] Cardiac Rehab, [address] [place] [address] Home Health [facility] H[facility], [place] [address] [place] [address] Transportation: family or friend will provide *Brother [...] Type: *No Product type* / Secondary Insurance: [employer] [place] Prescription Coverage: Yes This plan was formulated with input from patient, family (please identify family/friend involved ifapplicable) and team. All are in agreement with plan. Aliza Martino MSN-Ed, RN ACM trailhead maintenance worker Office of Care Management Pager #[phone] * Plan of Care - Favian Mckeon [...] Lana Chaudhary RN - 05/21/2023 4:46 PM [facility] referral OFFICE OF CARE MANAGEMENT [...] Type: *No Product type* / Secondary Insurance: [employer] [facility] [place] Last Physical Therapy Recommendation: [...] planning needs. describing our affiliations within the [facility] and educate about their right to choose where referrals are sent. provide a list of Home Health Agencies / Durable Medical Equipment vendors which serve their preferred geographic area. They have requested referrals to: [facility] [address] [place] [address] [facility] [place], [place] Note routed to a Missile Pad Mechanic who will communicate referrals to facilities and provide any required information. Transportation: family or friend will provide *Brother Raymond on Tuesday 05/22 at 1000 Barriers to discharge: Does not have home 22/02 assist available until tomorrow Tuesday 05/22 Plan going forward: Discharge home into the 22/02 home care of brother Raymond with [facility] and [facility] PT/OT services on Tuesday 05/22 [...] Attending: All Staff: Staff Role Juanita Almaguer Sales Representative [employer] Laure Ricks PA Physician Behavioral Modification Assistant Magdalena Rodriguez RN Radiology Nurse Consuelo Espinoza sales appointment coordinator Nurse Post-operative diagnosis/Indication: Right pleural effusion [...] Type: *No Product type* / Secondary Insurance: [facility] [place] Last Physical Therapy Recommendation: group home [...] to: discuss discharge planning needs. provide the [facility], Office of Care Management letter from the Kettle Cleaner pertaining to rehab referrals. provide a letter describing our affiliations within the [facility] and educate about their right to choose where referrals are sent. provide the CMS Star Quality Rating handout. review the different levels of rehab including SNF, swing, and acute. provide a list of facilities within their preferred geographic area. request that they provide at least three choices for referral. They have requested referrals to: [facility] [address] [place] [address] [facility]) [address] [place] [address] (Accepts pts only after exhausting all other local SNF options) [facility] (Swing) ([facility]) [address] [place] [address] PHONE: [phone] FAX: [phone] [facility] (Swing) [facility]) [address] [place] [address] PHONE: [phone] FAX: [phone] Note routed to a Missile Pad Mechanic who will communicate referrals to facilities [...] Crenshaw RN - 05/17/2023 10:25 AM EDT [facility] CARDIAC REHABILITATION [...] the original note were not included. [facility] NEPHROLOGY/HYPERTENSION CONSULT NOTE PATIENT: Purnima Thacker : [...] in her course. She ultimately underwent a rczyj-nq-xczhs procedure on and tolerated it well (see operative details). [facility] on some pressors [...] 1423 05/12/23 1105 PHART 7.39 7.37 7.34* [id number] 33* 36 42 PO2ART 101 102 73* WNF8GHU 19.5* 20.4 22.1 LACTATEVEN 1.5 1.8 2.8* KZA9VQF 40 40 40 PFRATIOART2 252 255 182 VBG (Venous Blood Gas) Recent Labs 05/12/23 1557 05/12/23 1423 05/12/23 1105 LACTATEVEN 1.5 1.8 2.8* Mixed Venous Sat Recent Labs 05/12/23 1425 05/12/23 0508 05/12/23 0321 [id number] 59.9 30.7 32.7 LFT's: Recent Labs 05/14/23 0110 05/13/23 0115 05/12/23 0600 BILITOT 0.4 0.5 0.9 BILIDIR -- 0.3 -- ALBUMIN 3.6 3.0* 3.5 ALKPHOS 86 85 100 ALT 437* 903* 1,174* AST 319* 792* 1,435* No results found for: UPROTCREAT No results found for: TPROTEINPEP, ALBELECT No results found for: MICROALBUR, IXZR86GQH No results found for: HA1C Lab Results Component Value Date CALCIUM 8.5 05/14/2023 PHOS 4.7 (H) 05/08/2023 No results found for: 25OHVITD MICROBIOLOGY: ProcedureComponentValueUnitsDate/TimeUrine culture [[id number]]Collected: 05/11/23 192Lab Status: Final resultSpecimen: Clean Catch [...] for assessment if this patient needs SUPERVISOR SOUND TECHNICIAN. Atthis time, we can likely hold off on SUPERVISOR SOUND TECHNICIAN. Her volume status appears sufficient and her metabolic kanwal angements with mild acidosis is not too profound. Patient does not have significant uremic symptoms. We can hold off for today, but the patient is a high risk candidate for needing SUPERVISOR SOUND TECHNICIAN in future daysespecially if her Cr curve trends the direction it is for the next several days. S/p Hmbyh-wg-Czqzd TF TAVR: Management per cardiology. On milrinone gtt. PLAN: - Please obtain following diagnostics: renal US, urinalysis, urine prot/Cr ratio, urine albumin/Cr ratio, CK, uric acid, serum osmol, daily VBGs - No acute indications for SUPERVISOR SOUND TECHNICIAN/dialysis. We will keep close eye on Cr trend, volume status, and metabolics to ensure patient still does not need SUPERVISOR SOUND TECHNICIAN as she ensues intrinsic renal recovery [...] M.H.Katherine., M.A. PGY-V Nephrology-Hypertension Fellow Page # [phone] [facility] [address] 2nd floor, Financial Services Professional [address] [place] [address] * Care Management - Mario Alberto Olmos [...] oliguric, lactate uptrending from 3.1 to 4.8. Kuhshi placed, initial cardiac index of 1.1. Started [...] *No Product type* / Secondary Insurance: [facility] Plan for discharge is: Home [...] for a TAVR at 730. Returned to [facility] at 0945. Was intubated in the biology laboratory assistant due to agitation. Maintained bedrest [...] Operative Note Patient Name: Purnima Thacker : [id number] MR#: [id number] Case Date: 05/12/2023 Surgeon: Surgeon(s) and Role: [...] procedure Note: Patient Name: Purnima Thacker : [id number] MR#: [id number] Case Date: 05/12/2023 Operators Surgeon: Surgeon(s) and [...] main with 4.0 x 30 mm Resolute Leon Drug Eluting Stent Perclose x1 + Angio-seal 8 Fr x1, RFA Manual pressure, LFA Manual pressure, LFV Endotracheal intubation (performed by cardiac anesthesia) Preliminary findings: Successful right transfemoral TAVR Kmrof-tl-Zmoql with a 23 mm Lai 3 THV. [...] MD, M.Sc. Structural Heart Disease Fellow Pager :[phone] Antelmo Sharma MD Pager [phone] * Op Note - Alirio Hudson MD - 05/12/2023 7:37 AM EDT Preop Diagnosis: Severe aortic stenosis, symptomatic. Postop Diagnosis: Same. Procedure: Transfemoral TAVR procedure with 23mm valve. Surgeon: Alirio Hudson M.D. Forest Nursery Supervisor: Danny CULP Procedure: The patient was taken to the biology laboratory assistant. 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 [facility] [place] [address] [address] STRUCTURAL HEART DISEASE CONSULTATION NOTE PRIMARY CARE [...] who had been referred for possible TAVR fjknt-bd-jiewo evaluation. Her primary symptoms are of dyspnea [...] otherwise negative. Ms. Thacker is originally from [facility]. 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 [...] Mild coronary artery disease by [facility] 11/09/2022 Heart failure with reduced ejection fraction [...] hour(s)) Lactate, whole blood, send to lab ([facility]) Result Value Ref Range Lactate WB 1.8 [...] leads Confirmed by MD Harshil, Enrique Bell ([id number]) on 05/10/2023 8:11:46 AM Assessment and Plan: [...] Antelmo Sharma MD Structural Heart Disease Pager [phone] * Plan of Care - Sarahi Nice RN - 05/10/2023 3:55 AM EDTSumavis: RN Note and Care Plan Sarahi Nice RN assumed care of pt at time of their arrival to room 362 from [facility]. Pt voices shortness of breath [...] VTE (Venous Thromboembolism) Risk Flowsheets (Taken 05/09/2023 9166) VTE Prevention/Management: anticoagulant therapy Intervention: Prevent Infection [...] listening utilized Taken 05/08/20231999 by Alivia Kauffman senior mechanical design engineer/Support System Care: self-care encouraged support provided [...] surrogate would be surrogate decision maker per [place] surrogate decision making law. (Only good for 180 days) Any patient receiving care in [place] must abide by [place] law. The hierarchy for surrogate decision making [...] DME: none Home Address confirmed as: [address] [address] Social & Family Supports: All names listed [...] *No Product type* / Secondary Insurance: [facility] ONLY if patient has Medicare A&B - Does this patient have secondary insurance?: Yes ; Prescription Coverage: Yes Preferred Pharmacy[facility] [place] Status: Patient is a : No Primary Care Provider confirmed: Magdalena Acosta MD [phone] Patient/Caregiver Goals of Treatment: Potential Needs for [...] transition of care planning. Alie Bradshaw RN, Pager-[phone] * Plan of Care - Emily Lucero [...] PM EDT Hospital Encounter [place] [phone] Markel Borjas MD [facility] [address] [place] [address] 05/29/2024 2:00 PM EDT - 05/29/2024 2:43 PM EDT Surgery [place] [address] Marekl Borjas MD [facility] [address] [place] [address] (OSC MSURG) BONE MARROW BIOPSY AND ASPIRATION; DIAGNOSTIC (WRVU 1.44) 06/23/2024 2:00 PM EST Office Visit [place]ology [place] [address] Markel Borjas MD [facility] [address] [place] [address] 03/01/2025 4:15 PM EDT Office Visit Dermatology at [place] [address] [address] Marek Bonilla MD [address], [place] [address] Scheduled Procedures Name Priority Associated Diagnoses Date/Ti [...] Heart Cath W/Inj L Ventriculography, Img S&I (36420) 05/12/2023 7:37 AM EDT Aortic valve stenosis, [...] DOPP COLOR DOPP (07/08/2023 12:15 PM EST) [facility] KeyMe 20 HEARTLAB SYSTEM Anatomical Region Laterality Modality Cardiac Other 07/08/2023 10:3 1 AM EST Narrative 07/08/2023 12:26 PM EST 1 [place] [address] ? Echocardiogram Report Name: PURNIMA THACKER ?Study Date: 07/08/2023 10:31 AMBP: 118/60 mmHg ? Patient Location: : 1955 ? Height: 155 cm ? Account: [id number] Age: 67 yrs ? Weight: 74 kg [...] no significant change (post-procedure). Procedure Limited - 35503. Doppler - 41979. Color Doppler - 90957. Satisfactory quality. This study is limited because [...] Note Lee Kincaid MD - 07/08/2023 [address] [place] [id number] Echocardiogram Report Name: PURNIMA THACKER Study Date: 0:31 AMBP: 118/60 mmHg Patient Location: : 1955 Height: 155 cm Account: [id number] Age: 67 yrs Weight: 74 kg Gender: [...] is nosignificant change (post-procedure). Procedure Limited - 81700. Doppler - 83311. Color Doppler - 76754. Satisfactoryquality. This study is limited because of [...] 93 65 - 199 mg/dL [facility] Comment:Diabetes: >=200 mg/d L plus symptoms Blood Urea Nitrogen 19(H) 8 - 18 mg/dL [facility] Creatinine 0.81 0.70 - 1.20 mg/dL [facility] Sodium 142 135 - 145 mmol/L [facility] Potassium 3.8 3.5 - 5.0 mmol/L [facility] Comment: Please note: ??Patients with WBC >100,000 may have falsely elevated Potassium levels. ??For accurate Potassium quantification in these patients send serum separator tube (gold top) for subsequent determinations. ??Contact the Clinical Chemistry Laboratory if there are any questions. Chloride 104 98 - 107 mmol/L [facility] Carbon Dioxide 26 22 - 31 mmol/L [facility] Anion Gap 12 5 - 15 mmol/L [facility] Calcium 10.2 8.5 - 10.5 mg/dL [facility] Protein, Total 7.4 6.1 - 8.0 g/dL [facility] Albumin 4.1 3.2 - 5.2 g/dL [facility] Aspartate Aminotransferase 24 0 - 30 unit/L [facility] Alanine Aminotransferase 12 0 - 30 unit/L [facility] Alkaline Phosphatase 93 35 - 105 unit/L [facility] Bilirubin, Total 0.3 0.2 - 1.3 mg/dL [facility] Est Glomerular Filtration Rate 80 >=60 mL/min/1. 73 m?? [facility] Comment: This patient's estimated GFR [...] Hudson MD CHEMISTRY ORDERABLE S [facility] [place] [address] * (ABNORMAL) Basic Metabolic Panel (non-fasting) (05/22/2023 3:57 AM EDT) Glucose 88 65 - 199 mg/dL [facility] Comment:Diabetes: >=200 mg/d L plus symptoms Blood Urea Nitrogen 21(H) 8 - 18 mg/dL [facility] Creatinine 0.69(L) 0.70 - 1.20 mg/dL [facility] Sodium 136 135 - 145 mmol/L [facility] Potassium 3.6 3.5 - 5.0 mmol/L [facility] Comment: Please note: ??Patients with WBC >100,000 may have falsely elevated Potassium levels. ??For accurate Potassium quantification in these patients send serum separator tube (gold top) for subsequent determinations. ??Contact the Clinical Chemistry Laboratory if there are any questions. Chloride 102 98 - 107 mmol/L [facility] Carbon Dioxide 23 22 - 31 mmol/L [facility] Anion Gap 11 5 - 15 mmol/L [facility] Calcium 8.6 8.5 - 10.5 mg/dL [facility] Est Glomerular Filtration Rate 95 >=60 mL/min/1. 73 m?? [facility] Comment: This patient's estimated GFR [...] Agency Comment Spec In Lab Mara Maggie OIL HEATER INSTALLER CHEMISTRY ORDERABL ES Performing Organization Address City/[facility] Co de Phone Number [facility] [place] [address] * (ABNORMAL) Basic Metabolic Panel (non-fasting) (05/21/2023 5:06 AM EDT) Glucose 87 65 - 199 mg/dL [facility] Comment:Diabetes: >=200 mg/d L plus symptoms Blood Urea Nitrogen 25(H) 8 - 18 mg/dL [facility] Creatinine 0.84 0.70 - 1.20 mg/dL [facility] Sodium 136 135 - 145 mmol/L [facility] Potassium 3.6 3.5 - 5.0 mmol/L [facility] Comment: Please note: ??Patients with WBC >100,000 may have falsely elevated Potassium levels. ??For accurate Potassium quantification in these patients send serum separator tube (gold top) for subsequent determinations. ??Contact the Clinical Chemistry Laboratory if there are any questions. Chloride 102 98 - 107 mmol/L [facility] Carbon Dioxide 26 22 - 31 mmol/L [facility] Anion Gap 8 5 - 15 mmol/L [facility] Calcium 8.9 8.5 - 10.5 mg/dL [facility] Est Glomerular Filtration Rate 76 >=60 mL/min/1. 73 m?? [facility] Comment: This patient's estimated GFR [...] Agency Comment Spec In Lab Mara Serrano OIL HEATER INSTALLER CHEMISTRY ORDERABL ES Performing Organization Address [facility]/ZIP Co de Phone Number [facility] [place] [address] * Lavender Tube HOLD (05/20/2023 2:52 AM EDT) Lavender Hold Sample in lab. [facility] Blood Venous Draw / Unknown 05/20/2023 2:52 AM EDT 05/20/2023 3:04 AM EDT Mara Serrano OIL HEATER INSTALLER HEMATOLOGY ORDERAB LES [facility] [place] [address] * (ABNORMAL) Basic Metabolic Panel (non-fasting) (05/20/2023 2:52 AM EDT) Glucose 152 65 - 199 mg/dL [facility] Comment:Diabetes: >=200 mg/d L plus symptoms Blood Urea Nitrogen 33(H) 8 - 18 mg/dL [facility] Creatinine 0.82 0.70 - 1.20 mg/dL [facility] Sodium 137 135 - 145 mmol/L [facility] Potassium 3.7 3.5 - 5.0 mmol/L [facility] Comment: Please note: ??Patients with WBC >100,000 may have falsely elevated Potassium levels. ??For accurate Potassium quantification in these patients send serum separator tube (gold top) for subsequent determinations. ??Contact the Clinical Chemistry Laboratory if there are any questions. Chloride 99 98 - 107 mmol/L [facility] Carbon Dioxide 22 22 - 31 mmol/L [facility] Anion Gap 16(H) 5 - 15 mmol/L [facility] Calcium 9.0 8.5 - 10.5 mg/dL [facility] Est Glomerular Filtration Rate 78 >=60 mL/min/1. 73 m?? [facility] Comment: This patient's estimated GFR [...] Agency Comment Spec In Lab Mara Thomasfield OIL HEATER INSTALLER CHEMISTRY ORDERABL ES Performing Organization Address [facility] Co de Phone Number [facility] [place] [address] * (ABNORMAL) Potassium (05/20/2023 2:52 AM EDT) Potassium 3.4(L) 3.5 - 5.0 mmol/L [facility] Comment: Please note: ??Patients with WBC >100,000 may have falsely elevated Potassium levels. ??For accurate Potassium quantification in these patients send serum separator tube (gold top) for subsequent determinations. ??Contact the Clinical Chemistry Laboratory if there are any questions. Blood 05/20/2023 2:52 AM EDT 05/20/2023 3:03 AM EDT Narrative Resulting Agency Comment Spec In Lab Mara [place]field OIL HEATER INSTALLER CHEMISTRY ORDERABL ES Performing Organization Address [facility] Co de Phone Number [facility] [place] [address] * XR Chest PA & Lateral (Generic) [...] questions please contact the health childcare center director that requested your imaging first. ? [...] have questions please contactthe health childcare center director that requested your imaging first. Alirio Hudson MD IMG DX ORDERABLES * (ABNORMAL) Basic Metabolic Panel (non-fasting) (05/19/2023 5:49 AM EDT) Glucose 93 65 - 199 mg/dL [facility] Comment:Diabetes: >=200 mg/d L plus symptoms Blood Urea Nitrogen 45(H) 8 - 18 mg/dL [facility] Creatinine 1.02 0.70 - 1.20 mg/dL [facility] Sodium 138 135 - 145 mmol/L [facility] Potassium 3.9 3.5 - 5.0 mmol/L [facility] Comment: Please note: ??Patients with WBC >100,000 may have falsely elevated Potassium levels. ??For accurate Potassium quantification in these patients send serum separator tube (gold top) for subsequent determinations. ??Contact the Clinical Chemistry Laboratory if there are any questions. Chloride 102 98 - 107 mmol/L [facility] Carbon Dioxide 26 22 - 31 mmol/L [facility] Anion Gap 10 5 - 15 mmol/L [facility] Calcium 9.7 8.5 - 10.5 mg/dL [facility] Est Glomerular Filtration Rate 60 >=60 mL/min/1. 73 m?? [facility] Comment: This patient's estimated GFR [...] Lab Mara Serrano APRN CHEMISTRY ORDERABL ES [facility] [place] [address] * IR Chest Tube Placement Right (05/18/2023 [...] 95 65 - 199 mg/dL [facility] Comment:Diabetes: >=200 mg/d L plus symptoms Blood Urea Nitrogen 71(H) 8 - 18 mg/dL [facility] Comment:result rechecked-JSJ Creatinine 1.64(H) 0.70 - 1.20 mg/dL [facility] Comment:result rechecked-JSJ Sodium 137 135 - 145 mmol/L [facility] Potassium 3.7 3.5 - 5.0 mmol/L [facility] Comment: Please note: ??Patients with WBC >100,000 may have falsely elevated Potassium levels. ??For accurate Potassium quantification in these patients send serum separator tube (gold top) for subsequent determinations. ??Contact the Clinical Chemistry Laboratory if there are any questions. Chloride 100 98 - 107 mmol/L [facility] Carbon Dioxide 24 22 - 31 mmol/L [facility] Anion Gap 13 5 - 15 mmol/L [facility] Calcium 9.7 8.5 - 10.5 mg/dL [facility] Est Glomerular Filtration Rate 34(L) >=60 mL/min/1. 73 m?? [facility] Comment: This patient's estimated GFR [...] Agency Comment Spec In Lab Mara Maggie [employer]ER CHEMISTRY ORDERABL ES [facility] [place] [address] * XR Chest PA & Lateral (Generic) [...] questions please contact the health childcare center director that requested your imaging first. ? [...] have questions please contactthe health childcare center director that requested your imaging first. Alirio Hudson MD IMG DX ORDERABLES * (ABNORMAL) Comprehensive metabolic panel (non-fasting) (05/17/2023 4:35 AM EDT) Pathologist [facility] Glucose 89 65 - 199 mg/dL [facility] Comment:Diabetes: >=200 mg/d L plus symptoms Blood Urea Nitrogen 97(H) 8 - 18 mg/dL [facility] Creatinine 2.97(H) 0.70 - 1.20 mg/dL [facility] Comment:result rechecked-JSJ Sodium 135 135 - 145 mmol/L [facility] Potassium 4.1 3.5 - 5.0 mmol/L [facility] Comment: Please note: ??Patients with WBC >100,000 may have falsely elevated Potassium levels. ??For accurate Potassium quantification in these patients send serum separator tube (gold top) for subsequent determinations. ??Contact the Clinical Chemistry Laboratory if there are any questions. Chloride 97(L) 98 - 107 mmol/L [facility] Carbon Dioxide 22 22 - 31 mmol/L [facility] Anion Gap 16(H) 5 - 15 mmol/L [facility] Calcium 9.6 8.5 - 10.5 mg/dL [facility] Protein, Total 6.5 6.1 - 8.0 g/dL [facility] Albumin 3.7 3.2 - 5.2 g/dL [facility] Aspartate Aminotransferase 58(H) 0 - 30 unit/L [facility] Alanine Aminotransferase 66(H) 0 - 30 unit/L [facility] Alkaline Phosphatase 86 35 - 105 unit/L [facility] Bilirubin, Total 0.6 0.2 - 1.3 mg/dL [facility] Est Glomerular Filtration Rate 17(L) >=60 mL/min/1. 73 m?? [facility] Comment: This patient's estimated GFR [...] MD CHEMISTRY ORDERABLE S Performing Organization Address [facility] Co de Phone Number [facility] [place] [address] * Potassium (05/16/2023 11:15 PM EDT) Potassium 3.7 3.5 - 5.0 mmol/L [facility] Comment: Please note: ??Patients with [...] [facility]/ZIP Co de Phone Number [facility] [place] [address] * Magnesium (05/16/2023 5:22 PM EDT) Magnesium 0.96 0.69 - 1.07 mmol/L [facility] Blood 05/16/2023 5:22 PM EDT 05/16/2023 5:27 PM EDT Narrative Resulting Agency Comment Spec In Lab Alirio Hudson MD CHEMISTRY ORDERABLE S [facility] [place] [address] * (ABNORMAL) Basic Metabolic Panel (non-fasting) (05/16/2023 5:22 PM EDT) Glucose 106 65 - 199 mg/dL [facility] Comment:Diabetes: >=200 mg/d L plus symptoms Blood Urea Nitrogen 103(H) 8 - 18 mg/dL [facility] Creatinine 3.91(H) 0.70 - 1.20 mg/dL [facility] Comment:result rechecked-imm Sodium 132(L) 135 - 145 mmol/L [facility] Potassium 3.6 3.5 - 5.0 mmol/L [facility] Comment: Please note: ??Patients with WBC >100,000 may have falsely elevated Potassium levels. ??For accurate Potassium quantification in these patients send serum separator tube (gold top) for subsequent determinations. ??Contact the Clinical Chemistry Laboratory if there are any questions. Chloride 92(L) 98 - 107 mmol/L [facility] Carbon Dioxide 22 22 - 31 mmol/L [facility] Anion Gap 18(H) 5 - 15 mmol/L [facility] Calcium 9.7 8.5 - 10.5 mg/dL [facility] Est Glomerular Filtration Rate 12(L) >=60 mL/min/1. 73 m?? [facility] Comment: This patient's estimated GFR [...] MD CHEMISTRY ORDERABLE S Performing Organization Address [facility] Co de Phone Number [facility] [place] [address] * (ABNORMAL) Potassium (05/16/2023 11:43 AM EDT) [facility] Potassium 3.3(L) 3.5 - 5.0 mmol/L [facility] Comment: Please note: ??Patients with [...] MD CHEMISTRY ORDERABLE S Performing Organization Address [facility] de Phone Number [facility] [place] [address] * (ABNORMAL) Ferritin (05/16/2023 4:41 AM EDT) Ferritin 1,813(H) 30 - 400 ng/mL [facility] Comment: Pediatric reference ranges not verified at [facility], interpret with caution. Reference ranges for females greater than 50 years of age approach values for men, i.e., 30-400 ng/mL. Blood 05/16/2023 4:41 AM EDT 05/16/2023 4:54 AM EDT Narrative Resulting Agency Comment Spec In Lab Kristopher Ayoub MD CHEMISTRY ORDERABLES Performing Organization Address City/[facility]/ZIP Co de Phone Number [facility] [place] [address] * (ABNORMAL) PTH (05/16/2023 4:41 AM EDT) Parathyroid Hormone 120(H) 15 - 65 pg/mL [facility] Blood 05/16/2023 4:41 AM EDT 05/16/2023 4:54 AM EDT Narrative Resulting Agency Comment Spec In Lab Kristopher Ayoub MD CHEMISTRY ORDERABLES Performing Organization Address [facility] Co de Phone Number [facility] [place] [address] * Vitamin D, 25-Hydroxy (05/16/2023 4:41 AM EDT) Pathologist [facility] Vitamin D Total 25 OH 33 21 - 100 ng/mL [facility] Vit D Interp Sufficient [facility] Blood 05/16/2023 4:41 AM EDT 05/16/2023 4:54 AM EDT Narrative Resulting Agency Comment Spec In Lab Kristopher Ayoub MD CHEMISTRY ORDERABLES Performing Organization Address [facility] Co de Phone Number [facility] [place] [address] * (ABNORMAL) Blood Gas Venous ([facility]) (05/16/2023 4:22 AM EDT) pH, Venous 7.41 7.32 - 7.42 [facility] PCO2, Venous 32(L) 41 - 51 mmHg [facility] PO2, Venous 73(H) 25 - 40 mmHg [facility] Bicarbonate, Venous 19.6 mmol/L [facility] Base Excess, Venous -5.1 mmol/L [facility] Hgb Blood Gas 9.7(L) 11.7 - 15.5 g/dL [facility] Oxyhemoglobin, Venous 92.8 % [facility] Carboxyhemoglob in, Venous 0.1 % [facility] Comment: Nonsmokers: 0.5-1.5% COHB Smokers: Variable, but usually less than 10% Toxic: 20-30% COHB Lethal: Greater than 60% COHB Methemoglobin, Venous 0.3 <=1.5 % [facility] Na Whole Blood 130(L) 135 - 145 mmol/L [facility] K Whole Blood 3.7 3.5 - 5.0 mmol/L [facility] Comment: Please note: Patients with WBC >100,000 may have falsely elevated Potassium levels. Contact the Clinical Chemistry Laboratory if there are any questions. ICa Whole Blood 1.15 1.15 - 1.33 mmol/L [facility] Comment: Note: ??Total bilirubin higher than 20 mg/dL may lead to falsely low ionized calcium. CL Whole Blood 95(L) 98 - 107 mmol/L [facility] Gluc Whole Bld 82 65 - 199 mg/dL [facility] Comment:Diabetes: >=200 mg/d L plus symptoms Lactate WB 1.1 0.5 - 2.2 mmol/L [facility] Blood Gas Source Venous [facility] Blood Venous Draw / Unknown 05/16/2023 4:22 AM EDT 05/16/2023 4:31 AM EDT Narrative Resulting Agency Comment Spec In Lab Bonita TOBAR CHEMISTRY ORDERABLES Performing Organization Address City/State/[facility] Co de Phone Number [facility] [place] [address] * (ABNORMAL) Differential, Automated (05/16/2023 4:20 AM EDT) Neutrophil % 84.1 % [facility] Neutrophil Absolute 6.22(H) 1.70 - 6.10 x10(3)/mc L [facility] Lymph % 5.8 % [facility] Lymphocytes Abs 0.4(L) 0.9 - 3.2 x10(3)/mc L [facility] Monocyte % 8.8 % [facility] Monocyte Abs 0.6 0.3 - 0.9 x10(3)/mc L [facility] Eos % 0.4 % [facility] Eosinophils Abs 0.0 0.0 - 0.4 x10(3)/mc L [facility] Basophil % 0.0 % [facility] Baso Absolute 0.0 0.0 - 0.1 x10(3)/mc L [facility] Immature Gran % 0.90 % [facility] Comment: Immature granulocytes(IG's)percentage and absolute count will include metamyelocytes, myelocytes, and promyelocytes. Blood smears from CBCs yielding IG's will be scanned manually for concordance. If this scan disagrees with the automated IG or if promyelocytes are noted, a manual differential will be performed. Immature Gran Absolute 0.07(H) 0.00 - 0.04 x10(3)/ L [facility] Blood 05/16/2023 4:20 AM EDT 05/16/2023 4:29 AM EDT Narrative Resulting Agency Comment Spec In Lab James Agustin MD HEMATOLOGY ORDER JODIE [facility] [place] [address] * (ABNORMAL) Hemogram (05/16/2023 4:20 AM EDT) White Blood Cell 7.4 4.0 - 9.5 x10(3)/mc L [facility] Red Blood Cell 2.40(L) 4.00 - 5.21 x10(6)/ L [facility] Hemoglobin 7.8(L) 11.7 - 15.5 g/dL [facility] Hematocrit 22.5(L) 35.7 - 45.8 % [facility] Mean Cell Volume 93.8 82.6 - 94.4 fL [facility] Mean Cell Hemoglobin 32.5(H) 27.1 - 32.0 pg [facility] Mean Cell Hemoglobin Concentration 34.7 31.7 - 35.0 g/dL [facility] Platelet 120(L) 145 - 357 x10(3)/mc L [facility] RDW Standard Deviation 42.9 37.0 - 46.0 fL [facility] RDW coefficient of variation 12.9 11.5 - 14.1 % [facility] Mean Platelet Volume 11.3 7.6 - 12.9 fL [facility] NRBC% auto 0.7 % [facility] NRBC Absolute 0.050(H) 0.000 - 0.000 x10(3)/mc L [facility] Blood 05/16/2023 4:20 AM EDT 05/16/2023 4:29 AM EDT Narrative Resulting Agency Comment Spec In Lab James Agustin MD HEMATOLOGY ORDER JODIE [facility] [place] [address] * (ABNORMAL) Basic Metabolic Panel (non-fasting) (05/16/2023 4:20 AM EDT) Glucose 89 65 - 199 mg/dL [facility] Comment:Diabetes: >=200 mg/d L plus symptoms Blood Urea Nitrogen 108(H) 8 - 18 mg/dL [facility] Creatinine 4.74(H) 0.70 - 1.20 mg/dL [facility] Comment:result rechecked-OLIVA Sodium 132(L) 135 - 145 mmol/L [facility] Potassium 3.9 3.5 - 5.0 mmol/L [facility] Comment: Please note: ??Patients with WBC >100,000 may have falsely elevated Potassium levels. ??For accurate Potassium quantification in these patients send serum separator tube (gold top) for subsequent determinations. ??Contact the Clinical Chemistry Laboratory if there are any questions. Chloride 95(L) 98 - 107 mmol/L [facility] Carbon Dioxide 18(L) 22 - 31 mmol/L [facility] Anion Gap 19(H) 5 - 15 mmol/L [facility] Calcium 9.2 8.5 - 10.5 mg/dL [facility] Est Glomerular Filtration Rate 10(L) >=60 mL/min/1. 73 m?? [facility] Comment: This patient's estimated GFR [...] [facility]ZIP Co de Phone Number [facility] [place] [address] * (ABNORMAL) Iron and TIBC (05/16/2023 4:20 AM EDT) Iron 31 30 - 150 mcg/dL [facility] TIBC 259 250 - 450 mcg/dL [facility] Iron Saturation 12(L) 20 - 50 % [facility] Blood 05/16/2023 4:20 AM EDT 05/16/2023 4:29 AM EDT Narrative Resulting Agency Comment Spec In Lab Kristopher Ayoub MD CHEMISTRY ORDERABLES Performing Organization Address [facility]/ZIP Co de Phone Number [facility] [place] [address] * (ABNORMAL) Basic Metabolic Panel (non-fasting) (05/15/2023 12:50 AM EDT) Glucose 101 65 - 199 mg/dL [facility] Comment:Diabetes: >=200 mg/d L plus symptoms Blood Urea Nitrogen 109(H) 8 - 18 mg/dL [facility] Creatinine 5.62(H) 0.70 - 1.20 mg/dL [facility] Comment:result rechecked-KS Sodium 131(L) 135 - 145 mmol/L [facility] Comment:result rechecked-KS Potassium 3.7 3.5 - 5.0 mmol/L [facility] Comment: result rechecked-KS Please note: ??Patients with WBC >100,000 may have falsely elevated Potassium levels. ??For accurate Potassium quantification in these patients send serum separator tube (gold top) for subsequent determinations. ??Contact the Clinical Chemistry Laboratory if there are any questions. Chloride 92(L) 98 - 107 mmol/L [facility] Comment:result rechecked-KS Carbon Dioxide 18(L) 22 - 31 mmol/L [facility] Comment:result rechecked-KS Anion Gap 21(H) 5 - 15 mmol/L [facility] Calcium 8.9 8.5 - 10.5 mg/dL [facility] Est Glomerular Filtration Rate 8(L) >=60 mL/min/1. 73 m?? [facility] Comment: This patient's estimated GFR [...] CHEMISTRY ORDERABLE S Performing Organization Address City/State/[facility] Co de Phone Number [facility] [place] [address] * (ABNORMAL) Hemogram (05/15/2023 12:50 AM EDT) White Blood Cell 9.1 4.0 - 9.5 x10(3)/mc L [facility] Red Blood Cell 2.19(L) 4.00 - 5.21 x10(6)/mc L [facility] Hemoglobin 7.2(L) 11.7 - 15.5 g/dL [facility] Hematocrit 20.6(L) 35.7 - 45.8 % [facility] Mean Cell Volume 94.1 82.6 - 94.4 fL [facility] Mean Cell Hemoglobin 32.9(H) 27.1 - 32.0 pg [facility] Mean Cell Hemoglobin Concentration 35.0 31.7 - 35.0 g/dL [facility] Platelet 109(L) 145 - 357 x10(3)/mc L [facility] RDW Standard Deviation 43.6 37.0 - 46.0 fL [facility] RDW coefficient of variation 12.9 11.5 - 14.1 % [facility] Mean Platelet Volume 10.4 7.6 - 12.9 fL [facility] NRBC% auto 2.1 % [facility] NRBC Absolute 0.190(H) 0.000 - 0.000 x10(3)/mc L [facility] Blood 05/15/2023 12:5 0 AM EDT 05/15/2023 12:52 AM EDT Narrative Resulting Agency Comment Spec In Lab Alirio Hudson MD HEMATOLOGY ORDERABL ES [facility] [place] [address] * (ABNORMAL) BLOOD GAS 2 VENOUS (05/15/2023 12:49 AM EDT) pH, Venous 7.33 7.32 - 7.42 [facility] PCO2, Venous 37(L) 41 - 51 mmHg [facility] PO2, Venous 34 25 - 40 mmHg [facility] Bicarbonate, Venous 19.1 mmol/L [facility] Base Excess, Venous -6.8 mmol/L [facility] Hgb Blood Gas 10.8(L) 11.7 - 15.5 g/dL [facility] Oxyhemoglobin, Venous 58.1 % [facility] Carboxyhemoglob in, Venous 0.3 % [facility] Comment: Nonsmokers: 0.5-1.5% COHB Smokers: Variable, but usually less than 10% Toxic: 20-30% COHB Lethal: Greater than 60% COHB Methemoglobin, Venous 0.6 <=1.5 % [facility] Na Whole Blood 136 135 - 145 mmol/L [facility] K Whole Blood 3.7 3.5 - 5.0 mmol/L [facility] Comment: Please note: Patients with WBC >100,000 may have falsely elevated Potassium levels. Contact the Clinical Chemistry Laboratory if there are any questions. ICa Whole Blood 1.12(L) 1.15 - 1.33 mmol/L [facility] Comment: Note: ??Total bilirubin higher than 20 mg/dL may lead to falsely low ionized calcium. CL Whole Blood 95(L) 98 - 107 mmol/L [facility] Gluc Whole Bld 101 65 - 199 mg/dL [facility] Comment:Diabetes: >=200 mg/d L plus symptoms Lactate WB 1.3 0.5 - 2.2 mmol/L [facility] Flow, Mike 1.0 LPM [facility] Blood Gas Source Venous [facility] Blood 05/15/2023 12:4 9 AM EDT 05/15/2023 12:49 AM EDT Alirio Hudson MD POINT OF CARE TEST ORDERABLES Performing Organization Address City/State/[facility] Co de Phone Number [facility] [place] [address] * US Retroperitoneal Complete (05/14/2023 3:53 PM [...] have questions, please contact the health childcare center director that requested your imaging first. ? Hayden Robledo, Staff Physician Electronically Signed Final Report ?? 05/14/2023 04:39 pm Narrative 05/14/2023 4:39 PM EDT Renal ? (Signed Final 05/14/2023 04:39 pm) PATIENT INFO: ID #: ? [id number] ?: ??[birth year] (67 yrs)(F) Name: ? PURNIMA THACKER ?Visit Date: 05/14/2023 03:44 pm PERFORMED BY: Attending: ?Meena CULP, Hayden Stafford Resident: ? Nell CULP, Anand August Performed By: ? Consuelo Tello RDMS Referred By: ?ALIRIO Powell BECCA Location: ? [place] SERVICE(S) PROVIDED: URETRO - Retroperitoneal Complete - [id number] ? [id number] INDICATIONS: [facility] COMPARISON: CT: Abdomen/Pelvis 05/11/23 RIGHT [...] 05/14/2023 04:39 pm) PATIENT INFO: ID #: [id number] : 55 (67 yrs)(F) Name: PURNIMA THACKER Visit Date: 05/14/2023 03:44 pm PERFORMED BY: Attending: Hayden Robledo MD Resident: Anand Camejo MD Performed By: Consuelo Tello RDMS Referred By: ALIRIO HUDSON Location: [place] SERVICE(S) PROVIDED: URETRO - Retroperitoneal Complete - [id number] INDICATIONS: [facility] COMPARISON: CT: Abdomen/Pelvis 05/11/23 RIGHT [...] have questions, please contact the health childcare center director that requested your imaging first. Hayden Robledo, Staff Physician Electronically Signed Final Report 05/14/2023 04:39 pm Alirio Hudson MD IMG US GEN ORDERABL ES * CK (05/14/2023 3:17 PM EDT) Creatine Kinase 123 0 - 160 unit/L [facility] Blood 05/14/2023 3:17 PM EDT 05/14/2023 3:31 PM EDT Narrative Resulting Agency Comment Spec In Lab Alirio Hudson MD CHEMISTRY ORDERABLE S Performing Organization Address City/[facility] Co de Phone Number [facility] [place] [address] * (ABNORMAL) Uric acid (05/14/2023 3:17 PM EDT) Uric Acid 14.9(H) 2.5 - 6.5 mg/dL [facility] Blood 05/14/2023 3:17 PM EDT 05/14/2023 3:31 PM EDT Narrative Resulting Agency Comment Spec In Lab Alirio Hudson MD CHEMISTRY ORDERABLE S Performing Organization Address [facility] Co de Phone Number [facility] [place] [address] * (ABNORMAL) Osmolality (05/14/2023 3:17 PM EDT) Osmolality 311(H) 275 - 295 mOsm/kg [facility] Blood 05/14/2023 3:17 PM EDT 05/14/2023 3:31 PM EDT Narrative Resulting Agency Comment Spec In Lab Alirio Hudson MD CHEMISTRY ORDERABLE S Performing Organization Address [facility] Co de Phone Number [facility] [place] [address] * (ABNORMAL) Differential, Automated (05/14/2023 1:10 AM EDT) Neutrophil % 87.2 % [facility] Neutrophil Absolute 9.74(H) 1.70 - 6.10 x10(3)/mc L [facility] Lymph % 3.9 % [facility] Lymphocytes Abs 0.4(L) 0.9 - 3.2 x10(3)/mc L [facility] Monocyte % 7.9 % [facility] Monocyte Abs 0.9 0.3 - 0.9 x10(3)/mc L [facility] Eos % 0.0 % [facility] Eosinophils Abs 0.0 0.0 - 0.4 x10(3)/mc L [facility] Basophil % 0.1 % [facility] Baso Absolute 0.0 0.0 - 0.1 x10(3)/mc L [facility] Immature Gran % 0.90 % [facility] Comment: Immature granulocytes(IG's)percentage and absolute count will include metamyelocytes, myelocytes, and promyelocytes. Blood smears from CBCs yielding IG's will be scanned manually for concordance. If this scan disagrees with the automated IG or if promyelocytes are noted, a manual differential will be performed. Immature Gran Absolute 0.10(H) 0.00 - 0.04 x10(3)/ L [facility] Blood 05/14/2023 1:10 AM EDT 05/14/2023 1:24 AM EDT Narrative Resulting Agency Comment Spec In Lab Bonita TOBAR HEMATOLOGY ORDERABLE S Performing Organization Address City/State/[facility] Co de Phone Number [facility] [place] [address] * (ABNORMAL) Hemogram (05/14/2023 1:10 AM EDT) White Blood Cell 11.2(H) 4.0 - 9.5 x10(3)/mc L [facility] Red Blood Cell 2.19(L) 4.00 - 5.21 x10(6)/mc L [facility] Hemoglobin 7.2(L) 11.7 - 15.5 g/dL [facility] Hematocrit 20.3(L) 35.7 - 45.8 % [facility] Mean Cell Volume 92.7 82.6 - 94.4 fL [facility] Mean Cell Hemoglobin 32.9(H) 27.1 - 32.0 pg [facility] Mean Cell Hemoglobin Concentration 35.5(H) 31.7 - 35.0 g/dL [facility] Platelet 112(L) 145 - 357 x10(3)/mc L [facility] RDW Standard Deviation 41.4 37.0 - 46.0 fL [facility] RDW coefficient of variation 12.5 11.5 - 14.1 % [facility] Mean Platelet Volume 10.4 7.6 - 12.9 fL [facility] NRBC% auto 1.5 % [facility] NRBC Absolute 0.170(H) 0.000 - 0.000 x10(3)/mc L [facility] Blood 05/14/2023 1:10 AM EDT 05/14/2023 1:24 AM EDT Narrative Resulting Agency Comment Spec In Lab Bonita TOBAR HEMATOLOGY ORDERABLE S [facility] [place] [address] * (ABNORMAL) Comprehensive metabolic panel (non-fasting) (05/14/2023 1:10 AM EDT) Glucose 120 65 - 199 mg/dL [facility] Comment:Diabetes: >=200 mg/d L plus symptoms Blood Urea Nitrogen 98(H) 8 - 18 mg/dL [facility] Creatinine 4.80(H) 0.70 - 1.20 mg/dL [facility] Comment:result rechecked-ssc Sodium 132(L) 135 - 145 mmol/L [facility] Potassium 4.1 3.5 - 5.0 mmol/L [facility] Comment: Please note: ??Patients with WBC >100,000 may have falsely elevated Potassium levels. ??For accurate Potassium quantification in these patients send serum separator tube (gold top) for subsequent determinations. ??Contact the Clinical Chemistry Laboratory if there are any questions. Chloride 94(L) 98 - 107 mmol/L [facility] Carbon Dioxide 18(L) 22 - 31 mmol/L [facility] Anion Gap 20(H) 5 - 15 mmol/L [facility] Calcium 8.5 8.5 - 10.5 mg/dL [facility] Protein, Total 5.8(L) 6.1 - 8.0 g/dL [facility] Albumin 3.6 3.2 - 5.2 g/dL [facility] Aspartate Aminotransferase 319(H) 0 - 30 unit/L [facility] Alanine Aminotransferase 437(H) 0 - 30 unit/L [facility] Alkaline Phosphatase 86 35 - 105 unit/L [facility] Bilirubin, Total 0.4 0.2 - 1.3 mg/dL [facility] Est Glomerular Filtration Rate 9(L) >=60 mL/min/1. 73 m?? [facility] Comment: This patient's estimated GFR [...] [facility] [address] * APTT (05/13/2023 10:15 AM EDT) Partial Thromboplastin Time 27 25 - 37 sec [facility] Comment: The PTT is NOT appropriate [...] [facility]ZIP Co de Phone Number [facility] [place] [address] * (ABNORMAL) Prothrombin Time (05/13/2023 10:15 AM EDT) Prothrombin Time 14.6(H) 9.4 - 12.5 sec [facility] International Normalization Ratio 1.3 [facility] Comment: An INR <2.0 [...] [facility]ZIP Co de Phone Number [facility] [place] [address] * EKG 12 Lead (05/13/2023 9:22 AM EDT) Ventricular rate 92 BPM MUSE SYSTEM Atrial Rate 92 BPM MUSE SYSTEM P-R Interval 140 ms MUSE SYSTEM QRS Duration 104 ms MUSE SYSTEM Q-T Interval 384 ms MUSE SYSTEM QTC Calculated (Bezet) 474 ms MUSE SYSTEM Calculated P Amity 33 degrees MUSE SYSTEM Calculated R Amity 41 degrees MUSE SYSTEM Calculated T Amity -35 degrees MUSE SYSTEM INTERPRETATION Sinus rhythm with frequent Premature ventricular complexes Septal infarct , age undetermined ST & T wave abnormality, consider lateral ischemia Abnormal ECG When compared with ECG of 12-MAY-2023 10:10, Premature ventricular complexes are now Present I personally reviewed the tracing and edited the fellows interpretation Confirmed by fellow MD Anitha, Carissa ([id number]) on 05/13/2023 3:25:30 PM Confirmed by Maxx Best ([id number]) on 05/13/2023 8:30:56 PM MUSE SYSTEM 05/13/2023 9:22 AM EDT 05/13/2023 8:30 PM EDT Alirio Hudson MD ECG ORDERABLES Performing Organization Address City/[facility]/ZIP Co de Phone Number MUSE SYSTEM * (ABNORMAL) Differential, Automated (05/13/2023 1:15 AM EDT) Neutrophil % 88.1 % [facility] Neutrophil Absolute 7.62(H) 1.70 - 6.10 x10(3)/mc L [facility] Lymph % 3.1 % [facility] Lymphocytes Abs 0.3(L) 0.9 - 3.2 x10(3)/mc L [facility] Monocyte % 7.9 % [facility] Monocyte Abs 0.7 0.3 - 0.9 x10(3)/ L [facility] Eos % 0.0 % [facility] Eosinophils Abs 0.0 0.0 - 0.4 x10(3)/ L [facility] Basophil % 0.1 % [facility] Baso Absolute 0.0 0.0 - 0.1 x10(3)/ L [facility] Immature Gran % 0.80 % [facility] Comment: Immature granulocytes(IG's)percentage and absolute count will include metamyelocytes, myelocytes, and promyelocytes. Blood smears from CBCs yielding IG's will be scanned manually for concordance. If this scan disagrees with the automated IG or if promyelocytes are noted, a manual differential will be performed. Immature Gran Absolute 0.07(H) 0.00 - 0.04 x10(3)/ L [facility] Blood 05/13/2023 1:15 AM EDT 05/13/2023 1:29 AM EDT Narrative Resulting Agency Comment Spec In Lab Lorri TOBAR HEMATOLOGY ORDERABLE S [facility] [place] [address] * (ABNORMAL) Hemogram (05/13/2023 1:15 AM EDT) White Blood Cell 8.6 4.0 - 9.5 x10(3)/mc L [facility] Red Blood Cell 2.37(L) 4.00 - 5.21 x10(6)/ L [facility] Hemoglobin 7.8(L) 11.7 - 15.5 g/dL [facility] Hematocrit 22.2(L) 35.7 - 45.8 % [facility] Mean Cell Volume 93.7 82.6 - 94.4 fL [facility] Mean Cell Hemoglobin 32.9(H) 27.1 - 32.0 pg [facility] Mean Cell Hemoglobin Concentration 35.1(H) 31.7 - 35.0 g/dL [facility] Platelet 130(L) 145 - 357 x10(3)/mc L [facility] RDW Standard Deviation 41.7 37.0 - 46.0 fL [facility] RDW coefficient of variation 12.5 11.5 - 14.1 % [facility] Mean Platelet Volume 10.2 7.6 - 12.9 fL [facility] NRBC% auto 0.5 % [facility] NRBC Absolute 0.040(H) 0.000 - 0.000 x10(3)/mc L [facility] Blood 05/13/2023 1:15 AM EDT 05/13/2023 1:29 AM EDT Narrative Resulting Agency Comment Spec In Lab Lorri TOBAR HEMATOLOGY ORDERABLE S [facility] [place] [address] * (ABNORMAL) Hepatic Function Panel (05/13/2023 1:15 AM EDT) Protein, Total 5.5(L) 6.1 - 8.0 g/dL [facility] Albumin 3.0(L) 3.2 - 5.2 g/dL [facility] Aspartate Aminotransferase 792(H) 0 - 30 unit/L [facility] Alanine Aminotransferase 903(H) 0 - 30 unit/L [facility] Alkaline Phosphatase 85 35 - 105 unit/L [facility] Bilirubin, Total 0.5 0.2 - 1.3 mg/dL [facility] Bilirubin, Direct 0.3 0.0 - 0.3 mg/dL [facility] Blood 05/13/2023 1:15 AM EDT 05/13/2023 1:29 AM EDT Narrative Resulting Agency Comment Spec In Lab Alirio Hudson MD CHEMISTRY ORDERABLE S [facility] [place] [address] * (ABNORMAL) Basic Metabolic Panel (non-fasting) (05/13/2023 1:15 AM EDT) Glucose 107 65 - 199 mg/dL [facility] Comment:Diabetes: >=200 mg/d L plus symptoms Blood Urea Nitrogen 82(H) 8 - 18 mg/dL [facility] Creatinine 3.15(H) 0.70 - 1.20 mg/dL [facility] Comment:result rechecked-JSJ Sodium 132(L) 135 - 145 mmol/L [facility] Potassium 3.8 3.5 - 5.0 mmol/L [facility] Comment: Please note: ??Patients with WBC >100,000 may have falsely elevated Potassium levels. ??For accurate Potassium quantification in these patients send serum separator tube (gold top) for subsequent determinations. ??Contact the Clinical Chemistry Laboratory if there are any questions. Chloride 95(L) 98 - 107 mmol/L [facility] Carbon Dioxide 20(L) 22 - 31 mmol/L [facility] Anion Gap 17(H) 5 - 15 mmol/L [facility] Calcium 8.3(L) 8.5 - 10.5 mg/dL [facility] Est Glomerular Filtration Rate 16(L) >=60 mL/min/1. 73 m?? [facility] Comment: This patient's estimated GFR [...] Hudson MD CHEMISTRY ORDERABLE S [facility] [place] [address] * (ABNORMAL) BLOOD GAS 2 ARTERIAL (05/12/2023 3:57 PM EDT) pH, Arterial 7.39 7.35 - 7.45 [facility] PCO2, Arterial 33(L) 35 - 45 mmHg [facility] PO2, Arterial 101 85 - 104 mmHg [facility] Bicarbonate, Arterial 19.5(L) 20.0 - 26.0 mmol/L [facility] Base Excess, Arterial -5.5(L) -3.0 - 3.0 mmol/L [facility] Hgb Blood Gas 9.8(L) 11.7 - 15.5 g/dL [facility] Oxyhemoglobin, Arterial 95.2 94.0 - 97.0 % [facility] Carboxyhemoglob in, Arterial 0.2 % [facility] Comment: Nonsmokers: 0.5-1.5% COHB Smokers: Variable, but usually less than 10% Toxic: 20-30% COHB Lethal: Greater than 60% COHB Methemoglobin, Arterial 0.8 <=1.5 % [facility] Na Whole Blood 129(L) 135 - 145 mmol/L [facility] K Whole Blood 3.8 3.5 - 5.0 mmol/L [facility] Comment: Please note: Patients with WBC >100,000 may have falsely elevated Potassium levels. Contact the Clinical Chemistry Laboratory if there are any questions. ICa Whole Blood 1.05(L) 1.15 - 1.33 mmol/L [facility] Comment: Note: ??Total bilirubin higher than 20 mg/dL may lead to falsely low ionized calcium. CL Whole Blood 96(L) 98 - 107 mmol/L [facility] Gluc Whole Bld 178 65 - 199 mg/dL [facility] Comment:Diabetes: >=200 mg/d L plus symptoms. Lactate WB 1.5 0.5 - 2.2 mmol/L [facility] FIO2 Art 40 % [facility] PF Ratio Art 252 [facility] Blood 05/12/2023 3:57 PM EDT 05/12/2023 3:57 PM EDT Alirio Hudson MD POINT OF CARE TEST ORDERABLES Performing Organization Address City/[facility] Co de Phone Number [facility] [place] [address] * (ABNORMAL) Coox2 (05/12/2023 2:25 PM EDT) pO2, Coox 37 mmHg [facility] Hgb Blood Gas 9.5(L) 11.7 - 15.5 g/dL [facility] Oxyhemoglobin, Coox 59.9 % [facility] Carboxyhemoglo bin, Coox 0.3 % [facility] Comment: Nonsmokers: 0.5-1.5% COHB Smokers: Variable, but usually less than 10% Toxic: 20-30% COHB Lethal: Greater than 60% COHB Methemoglobin, Coox 0.7 <=1.5 % [facility] Source Coox Mixed Venous [facility] Blood 05/12/2023 2:25 PM EDT 05/12/2023 2:25 PM EDT Alirio Hudson MD POINT OF CARE TEST ORDERABLES Performing Organization Address [facility] Co de Phone Number [facility] [place] [address] * (ABNORMAL) BLOOD GAS 2 ARTERIAL (05/12/2023 2:23 PM EDT) pH, Arterial 7.37 7.35 - 7.45 [facility] PCO2, Arterial 36 35 - 45 mmHg [facility] PO2, Arterial 102 85 - 104 mmHg [facility] Bicarbonate, Arterial 20.4 20.0 - 26.0 mmol/L [facility] Base Excess, Arterial -4.8(L) -3.0 - 3.0 mmol/L [facility] Hgb Blood Gas 12.7 11.7 - 15.5 g/dL [facility] Oxyhemoglobin, Arterial 95.4 94.0 - 97.0 % [facility] Carboxyhemoglob in, Arterial 0.3 % [facility] Comment: Nonsmokers: 0.5-1.5% COHB Smokers: Variable, but usually less than 10% Toxic: 20-30% COHB Lethal: Greater than 60% COHB Methemoglobin, Arterial 0.7 <=1.5 % [facility] Na Whole Blood 129(L) 135 - 145 mmol/L [facility] K Whole Blood 3.7 3.5 - 5.0 mmol/L [facility] Comment: Please note: Patients with WBC >100,000 may have falsely elevated Potassium levels. Contact the Clinical Chemistry Laboratory if there are any questions. ICa Whole Blood 1.05(L) 1.15 - 1.33 mmol/L [facility] Comment: Note: ??Total bilirubin higher than 20 mg/dL may lead to falsely low ionized calcium. CL Whole Blood 95(L) 98 - 107 mmol/L [facility] Gluc Whole Bld 168 65 - 199 mg/dL [facility] Comment:Diabetes: >=200 mg/d L plus symptoms. Lactate WB 1.8 0.5 - 2.2 mmol/L [facility] FIO2 Art 40 % [facility] PF Ratio Art 255 [facility] Blood 05/12/2023 2:23 PM EDT 05/12/2023 2:23 PM EDT Alirio Hudson MD POINT OF CARE TEST ORDERABLES Performing Organization Address City/State/[facility] Co de Phone Number [facility] [place] [address] * (ABNORMAL) Troponin (05/12/2023 2:05 PM EDT) Troponin-T, High Sensitivity 1,022(H) <=14 ng/L [facility] Comment: This patient's troponin T [...] troponin value can be found in the [facility] Laboratory Test Catalog Troponin - [facility] Laboratory Test Catalog Reference: Fourth [place] Definition of Myocardial Infarction. Journal of the [place] [employer] 2018;72:0174-2558 Blood 05/12/2023 2:05 PM EDT 05/12/2023 2:14 PM EDT Narrative Resulting Agency Comment Spec In Lab Alirio Hudson MD CHEMISTRY ORDERABLE S Performing Organization Address [facility]/ZIP Co de Phone Number [facility] [place] [address] * (ABNORMAL) Hemoglobin (05/12/2023 2:05 PM EDT) Hemoglobin 8.5(L) 11.7 - 15.5 g/dL [facility] Blood 05/12/2023 2:05 PM EDT 05/12/2023 2:14 PM EDT Narrative Resulting Agency Comment Spec In Lab Alirio Hudson MD HEMATOLOGY ORDERABL ES Performing Organization Address [facility] Co de Phone Number [facility] [place] [address] * Potassium (05/12/2023 2:05 PM EDT) Potassium 3.9 3.5 - 5.0 mmol/L [facility] Comment: Please note: ??Patients with [...] Hudson MD CHEMISTRY ORDERABLE S [facility] [place] [address] * (ABNORMAL) BLOOD GAS 2 ARTERIAL (05/12/2023 11:05 AM EDT) pH, Arterial 7.34(L) 7.35 - 7.45 [facility] PCO2, Arterial 42 35 - 45 mmHg [facility] PO2, Arterial 73(L) 85 - 104 mmHg [facility] Bicarbonate, Arterial 22.1 20.0 - 26.0 mmol/L [facility] Base Excess, Arterial -3.6(L) -3.0 - 3.0 mmol/L [facility] Hgb Blood Gas 9.3(L) 11.7 - 15.5 g/dL [facility] Oxyhemoglobin, Arterial 89.3(L) 94.0 - 97.0 % [facility] Carboxyhemoglob in, Arterial 0.2 % [facility] Comment: Nonsmokers: 0.5-1.5% COHB Smokers: Variable, but usually less than 10% Toxic: 20-30% COHB Lethal: Greater than 60% COHB Methemoglobin, Arterial 0.9 <=1.5 % [facility] Na Whole Blood 131(L) 135 - 145 mmol/L [facility] K Whole Blood 3.8 3.5 - 5.0 mmol/L [facility] Comment: Please note: Patients with WBC >100,000 may have falsely elevated Potassium levels. Contact the Clinical Chemistry Laboratory if there are any questions. ICa Whole Blood 1.04(L) 1.15 - 1.33 mmol/L [facility] Comment: Note: ??Total bilirubin higher than 20 mg/dL may lead to falsely low ionized calcium. CL Whole Blood 96(L) 98 - 107 mmol/L [facility] Gluc Whole Bld 152 65 - 199 mg/dL [facility] Comment:Diabetes: >=200 mg/d L plus symptoms. Lactate WB 2.8(H) 0.5 - 2.2 mmol/L [facility] FIO2 Art 40 % [facility] PF Ratio Art 182 [facility] Blood 05/12/2023 11:0 5 AM EDT 05/12/2023 11:05 AM EDT Alirio Hudson MD POINT OF CARE TEST ORDERABLES [facility] [place] [address] * (ABNORMAL) BLOOD GAS 2 ARTERIAL (05/12/2023 10:14 AM EDT) pH, Arterial 7.18(Criti gabrielle) 7.35 - 7.45 [facility] Comment:Noted by chemical instrumentation officer. PCO2, Arterial 45 35 - 45 mmHg [facility] PO2, Arterial 186(H) 85 - 104 mmHg [facility] Bicarbonate, Arterial 16.2(L) 20.0 - 26.0 mmol/L [facility] Base Excess, Arterial -12.2(L) -3.0 - 3.0 mmol/L [facility] Hgb Blood Gas 10.0(L) 11.7 - 15.5 g/dL [facility] Oxyhemoglobin, Arterial 97.0 94.0 - 97.0 % [facility] Carboxyhemoglob in, Arterial 0.2 % [facility] Comment: Nonsmokers: 0.5-1.5% COHB Smokers: Variable, but usually less than 10% Toxic: 20-30% COHB Lethal: Greater than 60% COHB Methemoglobin, Arterial 0.9 <=1.5 % [facility] Na Whole Blood 129(L) 135 - 145 mmol/L [facility] K Whole Blood 3.6 3.5 - 5.0 mmol/L [facility] Comment: Please note: Patients with WBC >100,000 may have falsely elevated Potassium levels. Contact the Clinical Chemistry Laboratory if there are any questions. ICa Whole Blood 1.10(L) 1.15 - 1.33 mmol/L [facility] Comment: Note: ??Total bilirubin higher than 20 mg/dL may lead to falsely low ionized calcium. CL Whole Blood 97(L) 98 - 107 mmol/L [facility] Gluc Whole Bld 161 65 - 199 mg/dL [facility] Comment:Diabetes: >=200 mg/d L plus symptoms. Lactate WB 3.3(H) 0.5 - 2.2 mmol/L [facility] FIO2 Art 100 % [facility] PF Ratio Art 186 [facility] Blood 05/12/2023 10:1 4 AM EDT 05/12/2023 10:14 AM EDT Alirio Hudson MD POINT OF CARE TEST ORDERABLES Performing Organization Address City/[facility]/ZIP Co de Phone Number [facility] [place] [address] * EKG 12 Lead (05/12/2023 10:10 AM EDT) Ventricular rate 116 BPM MUSE SYSTEM Atrial Rate 116 BPM MUSE SYSTEM P-R Interval 158 ms MUSE SYSTEM QRS Duration 114 ms MUSE SYSTEM Q-T Interval 348 ms MUSE SYSTEM QTC Calculated (Bezet) 483 ms MUSE SYSTEM Calculated P Amity 37 degrees MUSE SYSTEM Calculated R Amity 31 degrees MUSE SYSTEM Calculated T Amity -138 degrees MUSE SYSTEM INTERPRETATION Sinus tachycardia with intermittent aberrant ventricular conduction Possible Left atrial enlargement Incomplete left bundle block Left ventricular hypertrophy with repolarization abnormality ( Sokolow-Orozco , [place] product ) ST & T wave abnormality in Inferolateral leads Abnormal ECG When compared with ECG of 10-MAY-2023 13:16, ST & T wave abnormality is more pronounced in inferolateral leads I personally reviewed the tracing and edited the fellows interpretation Confirmed by fellow MD Licea Andrew ([id number]) on 05/12/2023 1:04:20 PM Confirmed by MD Villareal Danette ([id number]) on 05/12/2023 9:28:34 PM MUSE SYSTEM 05/12/2023 10:1 0 AM EDT 05/12/2023 9:28 PM EDT Alirio Hudson MD ECG ORDERABLES Performing Organization Address City/[facility]/ZIP Co de Phone Number MUSE SYSTEM * [...] questions please contact the health childcare center director that requested your imaging first. ? Narrative 05/12/2023 10:08 AM EDT EXAMINATION: XR CHEST ONE VIEW CLINICAL HISTORY: Post TAVR TECHNIQUE: 1 view of the chest COMPARISON: Chest radiograph from earlier today FINDINGS: Interval placement of endotracheal tube with tip terminating 2 cm above the shira. Interval placement of enteric tube projecting along the expected course of the esophagus and outside the zmydi-zt-pwnh. Interval retraction of right IJ approach pulmonary [...] expected course ofthe esophagus and outside the upydv-iv-asyx. Interval retraction of right IJ approach pulmonary [...] have questions please contactthe health childcare center director that requested your imaging first. Alirio Hudson MD IMG DX ORDERABLES * ECHO LMTD W/O CONTRAST W LMTD SPEC DOPP COLOR DOPP (05/12/2023 9:23 AM EDT) EF 20 [facility] SYSTEM Anatomical Region Laterality Modality Cardiac Other 05/12/2023 7:33 AM EDT Narrative 05/12/2023 10:18 AM EDT ? Echocardiogram Report Name: PURNIMA THACKER ?Study Date: 05/12/2023 07:33 AMBP: 96/63 mmHg ? Patient Location: [address] : 1955 ? Height: 154 cm ? Account: [id number] Age: 67 yrs ? Weight: 75 kg [...] mL/m2. POST TAVR: Normal function of the eblgi-ui-nzzyd prosthesis. See below for hemodynamic parameters. Slight improvement in left and right ventricular systolic function. LVEF now 20-25%. No pericardial effusion. See report for additional findings. Procedure Limited - 09189. Doppler - 97206. Color Doppler - 20091. Left Ventricle Left ventricle is of normal [...] Date: 307:33 AMBP: 96/63 mmHg Patient Location: [address] : 1955 Height: 154 cm Account: [id number] Age: 67 yrs Weight: 75 kg Gender: [...] 28mL/m2. POST TAVR: Normal function of the peqqr-ju-hodcg prosthesis. See belowfor hemodynamic parameters. Slight improvement in left and right ventricularsystolic function. LVEF now 20-25%. No pericardial effusion. See report for additional findings. Procedure Limited - 75672. Doppler - 32183. Color Doppler - 57297. Left Ventricle Left ventricle is of normal [...] Modality Other Narrative 05/12/2023 2:37 PM EDT ?[facility] ? Cardiac Catheterization/Intervention Report ? Patient Name: Purnima Thacker M. ? Procedure Date: 05/12/2023 ? A #: [id number] ? Primary Physician: Zachary, Antelmo N ? Case #: [id number] ? File Name: [id number] ? Catheterization Order Number: [id number] ? [facility] ? Final Report [place], [place] ? Patient Name: ? Purnima M. Kirstie ? ID#: ?[id number] ? : ?1955 ? Procedure Date: ? May 12, 2023 ? Case #: ? [id number] ? Room: ? 6 ? Case Physicians: ?Antelmo Sharma M.D. ?Start: ?08:03 ?Alirio Hudson M.D. ?Admission: ??05/08/2023 ?Lynda Mcgowan M.D. ? Discharge: ??05/22/2023 ?Fellow: ? Rebekah Tejeda M.D. ? Referring Physician: ??Mario Alberto Chin M.D. ? Procedures: ?* Coronary Angiography ?* Left Heart Catheterization ?* Coronary Stent Insertion ?* Transcatheter Aortic Valve Replacement ?* Vascular Closure Device Deployment ?* Temporary Pacemaker Insertion In Staff Development Manager ?* Endotracheal Intubation By Non-Cath Physician [...] guide. ??A premounted 4.00 x 30 mm Doddridge Leon (MINNA) was ? deployed with a maximum [...] calculated STS risk score was 30.1%. A zeuvk-kq-rwwcc ?procedure was performed on the pre-existing bioprosthetic stented ?prosthesis. The priority of the bgjve-ti-icowv procedure was Elective. ?The procedure was performed [...] Lai 3 Ultra RESILIA 23 mm THV (s/l=[id number]) transcatheter ?valve was inserted using standard technique. [...] to nor was it given in the ?biology laboratory assistant. ?Recommended anti-platelet/anti-thrombotic regimen: ?Continue aspirin 81 mg daily for indefinitely. ?These recommendations are made at the time of the intervention. Patient ?and provider preferences or a changing clinical situation may require ?modification of this regimen. Consult [facility] Interventional Cardiology for ?questions. ? Conclusions: ?* [...] regimen. ? Comments: ?Successful right transfemoral TAVR Pnwgw-op-Ryvzu with a 23 mm Lai 3 ?THV. [...] insertion-coronary, access site angiography, ?temporary pacemaker in biology laboratory assistant, intubation-non cath physician, vascular ?closure device, transthoracic echo ??and TAVR. Dr. Alirio Hudson M.D. ?performed the left heart catheterization, access site angiography, ?temporary pacemaker in biology laboratory assistant, vascular closure device, transthoracic ?echo , TAVR and CPR during cath. Dr. Lynda Mcgowan M.D. performed the ABG, ?anesthesia and intubation-non cath physician. ? Antelmo Sharma M.D. ? Electronically Signed by: Arabella OgdenD. ? Report Finalized: 05/12/2023 ??14:31 ? Report Last Ammended: 07/01/2023 ??11:30 ? Procedure Note Antelmo Sharma MD - 07/01/2023 [facility] Cardiac Catheterization/Intervention Report Patient Name: Purnima Thacker Procedure Date: 05/12/2023 A #: [id number] Primary Physician: Antelmo Sharma Case #: [id number] File Name: [id number] Catheterization Order Number: [id number] [facility] FinalReport [place], [place] Patient Name: Purnima Thacker ID#:[id number] :1955 Procedure Date: May 12, 2023 Case #: [id number] Room: 6 [facility] Physicians: Antelmo Sharma M.D. Start: 08:03 Alirio Hudson M.D. Admission:05/08/2023 Lynda Mcgowan M.D. Discharge:05/22/2023 Fellow: Rebekah Tejeda M.D. Referring Physician: Mario Alberto Chin M.D. Procedures: * Coronary Angiography * Left Heart Catheterization * Coronary Stent Insertion * Transcatheter Aortic Valve Replacement * Vascular Closure Device Deployment * Temporary Pacemaker Insertion In Staff Development Manager * Endotracheal Intubation By Non-Cath Physician [...] A premounted 4.00 x 30 mm Nils Leon (MINNA) was deployed with a maximum inflation [...] calculated STS risk score was 30.1%. A jeibf-id-xipkq procedure was performed on the pre-existing bioprosthetic stented prosthesis. The priority of the ofgfs-sb-tpdmo procedure wasElective. The procedure was performed under Moderate sedation performed byLynda Mcgowan M.D. (see anesthesia report for additional details). Alirio Hudson M.D. participated in the case (see Cardiac Surgery reportfor additional details). The TAVR sheath was a 14 Fr Corona eSheath Introducer and theaccess site was femoral. Rapid ventricular pacing was performed. An Corona Lai 3 Ultra RESILIA 23 mm THV (s/c=[id number])transcatheter valve was inserted using standard technique. The [...] prior to nor was it given inthe biology laboratory assistant. Recommended anti-platelet/anti-thrombotic regimen: Continue aspirin 81 mg daily for indefinitely. These recommendations are made at the time of the intervention.Patient and provider preferences or a changing clinical situation mayrequire modification of this regimen. Consult [facility] Interventional Cardiologyfor questions. Conclusions: * Nonobstructive disease [...] this regimen. Comments: Successful right transfemoral TAVR [id number] with a 23 mmSapien 3 THV. We [...] insertion-coronary, access site angiography, temporary pacemaker in biology laboratory assistant, intubation-non cath physician,vascular closure device, transthoracic echo and TAVR. Dr. Alirio Hudson M.D. performed the left heart catheterization, access site angiography, temporary pacemaker in biology laboratory assistant, vascular closure device,transthoracic echo , [...] 7.20(Crit ical) 7.35 - 7.45 [facility] Comment:Critical value OK, C C Lab. pCO2, POC 42 35 - 45 mmHg [facility] pO2, POC 260(H) 85 - 104 mmHg [facility] Base Excess, POC -11.0(L) -3.0 - 3.0 mmol/L [facility] Bicarbonate, POC 16.7(L) 20.0 - 26.0 mmol/L [facility] Sodium, POC 129(L) 135 - 145 mmol/L [facility] POC Potassium 3.8 3.5 - 5.0 mmol/L [facility] Ionized Calcium, POC 1.12(L) 1.15 - 1.33 mmol/L [facility] POC Hematocrit 23.0(L) 34.0 - 45.0 % [facility] POC Calc Hgb 7.8(L) 11.2 - 15.7 g/dL [facility] Comment:The calculation of h emoglobin from hematocrit assumes a normal MCHC. POC Bgas Loc CC Lab [facility] Blood 05/12/2023 8:50 AM EDT 05/13/2023 12:00 PM EDT Alirio Hudson MD CHEMISTRY ORDERABLE S [facility] [place] [address] * (ABNORMAL) Point of Care Blood Gas Historical (05/12/2023 8:10 AM EDT) pH, POC 7.27(Crit ical) 7.35 - 7.45 [facility] Comment:Critical value OK, C C Lab. pCO2, POC 37 35 - 45 mmHg [facility] pO2, POC 29(Critic al) 85 - 104 mmHg [facility] Comment:Critical value OK, C C Lab. Base Excess, POC -10.0(L) -3.0 - 3.0 mmol/L [facility] Bicarbonate, POC 16.7(L) 20.0 - 26.0 mmol/L [facility] Sodium, POC 123(L) 135 - 145 mmol/L [facility] POC Potassium 4.0 3.5 - 5.0 mmol/L [facility] Ionized Calcium, POC 1.12(L) 1.15 - 1.33 mmol/L [facility] POC Hematocrit 27.0(L) 34.0 - 45.0 % [facility] POC Calc Hgb 9.2(L) 11.2 - 15.7 g/dL [facility] Comment:The calculation of h emoglobin from hematocrit assumes a normal MCHC. POC Bgas Loc CC Lab [facility] Blood 05/12/2023 8:10 AM EDT 05/13/2023 12:00 PM EDT Alirio Hudson MD CHEMISTRY ORDERABLE S [facility] [place] [address] * (ABNORMAL) Lactate, whole blood, send to lab ([facility]) (05/12/2023 7:00 AM EDT) Lactate WB 2.4(H) 0.5 - 2.2 mmol/L [facility] Blood 05/12/2023 7:00 AM EDT 05/12/2023 7:09 AM EDT Narrative Resulting Agency Comment Spec In Lab Radha Hollins MD CHEMISTRY ORDERABL ES [facility] [place] [address] * (ABNORMAL) Comprehensive metabolic panel (non-fasting) (05/12/2023 6:00 AM EDT) Glucose 167 65 - 199 mg/dL [facility] Comment:Diabetes: >=200 mg/d L plus symptoms Blood Urea Nitrogen 67(H) 8 - 18 mg/dL [facility] Creatinine 2.01(H) 0.70 - 1.20 mg/dL [facility] Sodium 131(L) 135 - 145 mmol/L [facility] Potassium 4.3 3.5 - 5.0 mmol/L [facility] Comment: Please note: ??Patients with WBC >100,000 may have falsely elevated Potassium levels. ??For accurate Potassium quantification in these patients send serum separator tube (gold top) for subsequent determinations. ??Contact the Clinical Chemistry Laboratory if there are any questions. Chloride 97(L) 98 - 107 mmol/L [facility] Carbon Dioxide 14(L) 22 - 31 mmol/L [facility] Anion Gap 20(H) 5 - 15 mmol/L [facility] Calcium 8.6 8.5 - 10.5 mg/dL [facility] Protein, Total 6.3 6.1 - 8.0 g/dL [facility] Albumin 3.5 3.2 - 5.2 g/dL [facility] Aspartate Aminotransferase 1,435(H) 0 - 30 unit/L [facility] Alanine Aminotransferase 1,174(H) 0 - 30 unit/L [facility] Alkaline Phosphatase 100 35 - 105 unit/L [facility] Bilirubin, Total 0.9 0.2 - 1.3 mg/dL [facility] Est Glomerular Filtration Rate 27(L) >=60 mL/min/1. 73 m?? [facility] Comment: This patient's estimated GFR [...] Lab Radha Hollins [place] [address] * (ABNORMAL) Coox2 (05/12/2023 5:08 AM EDT) pO2, Coox 24 mmHg [facility] Hgb Blood Gas 10.4(L) 11.7 - 15.5 g/dL [facility] Oxyhemoglobin, Coox 30.7 % [facility] Carboxyhemoglo bin, Coox 0.3 % [facility] Comment: Nonsmokers: 0.5-1.5% COHB Smokers: Variable, but usually less than 10% Toxic: 20-30% COHB Lethal: Greater than 60% COHB Methemoglobin, Coox 0.8 <=1.5 % [facility] Source Coox Mixed Venous [facility] Blood 05/12/2023 5:08 AM EDT 05/12/2023 5:08 AM EDT Radha Hollins MD POINT [place] [address] * (ABNORMAL) Coox2 (05/12/2023 3:21 AM EDT) pO2, Coox 25 mmHg [facility] Hgb Blood Gas 10.8(L) 11.7 - 15.5 g/dL [facility] Oxyhemoglobin, Coox 32.7 % [facility] Carboxyhemoglo bin, Coox 0.3 % [facility] Comment: Nonsmokers: 0.5-1.5% COHB Smokers: Variable, but usually less than 10% Toxic: 20-30% COHB Lethal: Greater than 60% COHB Methemoglobin, Coox 0.7 <=1.5 % [facility] Source Coox Mixed Venous [facility] Blood 05/12/2023 3:21 AM EDT 05/12/2023 3:21 AM EDT Radha Hollins MD POINT OF CARE TEST ORDERABLES [facility] [place] [address] * (ABNORMAL) BLOOD GAS 2 ARTERIAL (05/12/2023 3:18 AM EDT) pH, Arterial 7.34(L) 7.35 - 7.45 [facility] PCO2, Arterial 30(L) 35 - 45 mmHg [facility] PO2, Arterial 72(L) 85 - 104 mmHg [facility] Bicarbonate, Arterial 16.0(L) 20.0 - 26.0 mmol/L [facility] Base Excess, Arterial -9.8(L) -3.0 - 3.0 mmol/L [facility] Hgb Blood Gas 11.0(L) 11.7 - 15.5 g/dL [facility] Oxyhemoglobin, Arterial 89.8(L) 94.0 - 97.0 % [facility] Carboxyhemoglob in, Arterial 0.3 % [facility] Comment: Nonsmokers: 0.5-1.5% COHB Smokers: Variable, but usually less than 10% Toxic: 20-30% COHB Lethal: Greater than 60% COHB Methemoglobin, Arterial 0.7 <=1.5 % [facility] Na Whole Blood 131(L) 135 - 145 mmol/L [facility] K Whole Blood 4.2 3.5 - 5.0 mmol/L [facility] Comment: Please note: Patients with WBC >100,000 may have falsely elevated Potassium levels. Contact the Clinical Chemistry Laboratory if there are any questions. ICa Whole Blood 1.12(L) 1.15 - 1.33 mmol/L [facility] Comment: Note: ??Total bilirubin higher than 20 mg/dL may lead to falsely low ionized calcium. CL Whole Blood 100 98 - 107 mmol/L [facility] Gluc Whole Bld 160 65 - 199 mg/dL [facility] Comment:Diabetes: >=200 mg/d L plus symptoms. Lactate WB 2.7(H) 0.5 - 2.2 mmol/L [facility] Flow Art 5.0 LPM [facility] Blood 05/12/2023 3:18 AM EDT 05/12/2023 3:18 AM EDT Radha Hollins MD POINT OF CARE TEST ORDERABLES Performing Organization Address City/[facility] Co de Phone Number [facility] [place] [address] * (ABNORMAL) Coox2 (05/12/2023 1:14 AM EDT) pO2, Coox 28 mmHg [facility] Hgb Blood Gas 10.9(L) 11.7 - 15.5 g/dL [facility] Oxyhemoglobin, Coox 37.3 % [facility] Carboxyhemoglo bin, Coox 0.3 % [facility] Comment: Nonsmokers: 0.5-1.5% COHB Smokers: Variable, but usually less than 10% Toxic: 20-30% COHB Lethal: Greater than 60% COHB Methemoglobin, Coox 0.5 <=1.5 % [facility] Source Coox Mixed Venous [facility] Blood 05/12/2023 1:14 AM EDT 05/12/2023 1:14 AM EDT Radha Hollins MD POINT OF CARE TEST ORDERABLES Performing Organization Address City/[facility] Co de Phone Number [facility] [place] [address] * (ABNORMAL) BLOOD GAS 2 ARTERIAL (05/12/2023 1:06 AM EDT) pH, Arterial 7.34(L) 7.35 - 7.45 [facility] PCO2, Arterial 30(L) 35 - 45 mmHg [facility] PO2, Arterial 81(L) 85 - 104 mmHg [facility] Bicarbonate, Arterial 15.7(L) 20.0 - 26.0 mmol/L [facility] Base Excess, Arterial -10.1(L) -3.0 - 3.0 mmol/L [facility] Hgb Blood Gas 11.0(L) 11.7 - 15.5 g/dL [facility] Oxyhemoglobin, Arterial 92.3(L) 94.0 - 97.0 % [facility] Carboxyhemoglob in, Arterial 0.2 % [facility] Comment: Nonsmokers: 0.5-1.5% COHB Smokers: Variable, but usually less than 10% Toxic: 20-30% COHB Lethal: Greater than 60% COHB Methemoglobin, Arterial 0.6 <=1.5 % [facility] Na Whole Blood 131(L) 135 - 145 mmol/L [facility] K Whole Blood 4.2 3.5 - 5.0 mmol/L [facility] Comment: Please note: Patients with WBC >100,000 may have falsely elevated Potassium levels. Contact the Clinical Chemistry Laboratory if there are any questions. ICa Whole Blood 1.13(L) 1.15 - 1.33 mmol/L [facility] Comment: Note: ??Total bilirubin higher than 20 mg/dL may lead to falsely low ionized calcium. CL Whole Blood 99 98 - 107 mmol/L [facility] Gluc Whole Bld 132 65 - 199 mg/dL [facility] Comment:Diabetes: >=200 mg/d L plus symptoms. Lactate WB 2.7(H) 0.5 - 2.2 mmol/L [facility] Flow Art 5.0 LPM [facility] Blood 05/12/2023 1:06 AM EDT 05/12/2023 1:06 AM EDT Radha Hollins MD POINT OF CARE TEST ORDERABLES [facility] [place] [address] * (ABNORMAL) Differential, Automated (05/12/2023 1:05 AM EDT) Pathologist [facility] Neutrophil % 83.3 % [facility] Neutrophil Absolute 7.49(H) 1.70 - 6.10 x10(3)/ L [facility] Lymph % 7.1 % [facility] Lymphocytes Abs 0.6(L) 0.9 - 3.2 x10(3)/ L [facility] Monocyte % 8.9 % [facility] Monocyte Abs 0.8 0.3 - 0.9 x10(3)/mc L [facility] Eos % 0.0 % [facility] Eosinophils Abs 0.0 0.0 - 0.4 x10(3)/[facility] Basophil % 0.1 % [facility] Baso Absolute 0.0 0.0 - 0.1 x10(3)/ L [facility] Immature Gran % 0.60 % [facility] Comment: Immature granulocytes(IG's)percentage and absolute count will include metamyelocytes, myelocytes, and promyelocytes. Blood smears from CBCs yielding IG's will be scanned manually for concordance. If this scan disagrees with the automated IG or if promyelocytes are noted, a manual differential will be performed. Immature Gran Absolute 0.05(H) 0.00 - 0.04 x10(3)/ L [facility] Blood 05/12/2023 1:05 AM EDT 05/12/2023 1:15 AM EDT Narrative Resulting Agency Comment Spec In Lab Gianni Fletcher MD HEMATOLOGY ORDERABLE S [facility] [place] [address] * (ABNORMAL) Hemogram (05/12/2023 1:05 AM EDT) Pathologist [facility] White Blood Cell 9.0 4.0 - 9.5 x10(3)/mc L [facility] Red Blood Cell 3.01(L) 4.00 - 5.21 x10(6)/[facility] Hemoglobin 9.8(L) 11.7 - 15.5 g/dL [facility] Hematocrit 28.7(L) 35.7 - 45.8 % [facility] Mean Cell Volume 95.3(H) 82.6 - 94.4 fL [facility] Mean Cell Hemoglobin 32.6(H) 27.1 - 32.0 pg [facility] Mean Cell Hemoglobin Concentration 34.1 31.7 - 35.0 g/dL [facility] Platelet 186 145 - 357 x10(3)/mc L [facility] RDW Standard Deviation 43.7 37.0 - 46.0 fL [facility] RDW coefficient of variation 12.7 11.5 - 14.1 % [facility] Mean Platelet Volume 10.3 7.6 - 12.9 fL [facility] NRBC% auto 0.0 % [facility] NRBC Absolute 0.000 0.000 - 0.000 x10(3)/mc L [facility] Blood 05/12/2023 1:05 AM EDT 05/12/2023 1:15 AM EDT Narrative Resulting Agency Comment Spec In Lab Gianni Fletcher MD HEMATOLOGY ORDERABLE S [facility] [place] [address] * (ABNORMAL) Comprehensive metabolic panel (non-fasting) (05/12/2023 1:05 AM EDT) Glucose 141 65 - 199 mg/dL [facility] Comment:Diabetes: >=200 mg/d L plus symptoms Blood Urea Nitrogen 63(H) 8 - 18 mg/dL [facility] Creatinine 1.86(H) 0.70 - 1.20 mg/dL [facility] Sodium 131(L) 135 - 145 mmol/L [facility] Potassium 4.4 3.5 - 5.0 mmol/L [facility] Comment: Please note: ??Patients with WBC >100,000 may have falsely elevated Potassium levels. ??For accurate Potassium quantification in these patients send serum separator tube (gold top) for subsequent determinations. ??Contact the Clinical Chemistry Laboratory if there are any questions. Chloride 96(L) 98 - 107 mmol/L [facility] Carbon Dioxide 14(L) 22 - 31 mmol/L [facility] Anion Gap 21(H) 5 - 15 mmol/L [facility] Calcium 9.0 8.5 - 10.5 mg/dL [facility] Protein, Total 6.6 6.1 - 8.0 g/dL [facility] Albumin 3.9 3.2 - 5.2 g/dL [facility] Aspartate Aminotransferase 1,227(H) 0 - 30 unit/L [facility] Alanine Aminotransferase 1,097(H) 0 - 30 unit/L [facility] Alkaline Phosphatase 108(H) 35 - 105 unit/L [facility] Bilirubin, Total 1.0 0.2 - 1.3 mg/dL [facility] Est Glomerular Filtration Rate 29(L) >=60 mL/min/1. 73 m?? [facility] Comment: This patient's estimated GFR [...] Hollins MD CHEMISTRY ORDERABL ES [facility] [place] [address] * XR Chest One View (05/12/2023 1:00 [...] questions please contact the health childcare center director that requested your imaging first. ? [...] have questions please contactthe health childcare center director that requested your imaging first. Radha Hollins MD IMG DX ORDERABLES * (ABNORMAL) Coox2 (05/12/2023 12:30 AM EDT) pO2, Coox 22 mmHg [facility] Hgb Blood Gas 10.9(L) 11.7 - 15.5 g/dL [facility] Oxyhemoglobin, Coox 25.1 % [facility] Carboxyhemoglo bin, Coox 0.3 % [facility] Comment: Nonsmokers: 0.5-1.5% COHB Smokers: Variable, but usually less than 10% Toxic: 20-30% COHB Lethal: Greater than 60% COHB Methemoglobin, Coox 1.4 <=1.5 % [facility] Source Coox Mixed Venous [facility] Blood 05/12/2023 12:3 0 AM EDT 05/12/2023 12:30 AM EDT Radha Hollins MD POINT OF CARE TEST [place] [address] * XR Chest One View (05/11/2023 11:45 [...] questions please contact the health childcare center director that requested your imaging first. ? [...] have questions please contactthe health childcare center director that requested your imaging first. Radha Hollins MD IMG DX ORDERABLES * (ABNORMAL) Lactate, whole blood, send to lab ([facility]) (05/11/2023 7:40 PM EDT) Pathologist [facility] Lactate WB 4.8(Critic al) 0.5 - 2.2 mmol/L [facility] Comment:Called by: [facility], Read back by: Magdalena Baires, Date/Time:05/11/23 19:54. Blood 05/11/2023 7:40 PM EDT 05/11/2023 7:49 PM EDT Narrative Resulting Agency Comment Spec In Lab Radha Hollins MD CHEMISTRY ORDERABL ES [facility] [place] [address] * Urine culture (05/11/2023 7:22 PM EDT) Pathologist [facility] Urine Culture 50,000-99,000 cfu/ml Normal mucosal herman Susceptibilit y testing not routinely performed for Coagulase Negative Staphylococcu s species and other Gram Positive organisms from urine. [facility] Clean Catch Urine 05/11/2023 7:22 PM EDT 05/11/2023 8:50 PM EDT Narrative Resulting Agency Comment Spec In Lab Brody Kaplan OIL HEATER INSTALLER MICROBIOLOGY - GENE RAL ORDERABLES Performing Organization Address [facility]/ZIP Co de Phone Number [facility] [place] [address] * (ABNORMAL) Urinalysis Microscopic Exam (05/11/2023 7:22 PM EDT) RBC, Urine 2 0 - 4 /HPF [facility] WBC, Urine >100(H) 0 - 5 /HPF [facility] Bacteria, Urine Occasional (A) None /HPF [facility] Squamous Epithelial Cells Raw Data, Urine 5(H) <=4 /HPF [facility] Hyaline Casts, Urine 3(H) 0 - 2 /LPF [facility] Clean Catch Urine 05/11/2023 7:22 PM EDT 05/11/2023 7:31 PM EDT Narrative Resulting Agency Comment Spec In Lab Brody Kaplan OIL HEATER INSTALLER URINE ORDERABLES Performing Organization Address [facility] Co de Phone Number [facility] [place] [address] * (ABNORMAL) Urinalysis with reflex Culture (05/11/2023 7:22 PM EDT) Glucose, Urine Dipstick Negative Negative mg/dL [facility] Protein, Urine Dipstick Trace(A) Negative mg/dL [facility] Bilirubin, Urine Dipstick Negative Negative mg/dL [facility] Comment: Clinical correlation required for positive Urine Bilirubin results as false positive may occur with some drugs and drug related products. If a false positive is suspected a serum total bilirubin should be considered if clinically indicated. Urobilinogen, Urine Dipstick Normal Normal mg/dL [facility] pH, Urn (dipstick) 5.0 5.0 - 8.0 [facility] Blood, Urine Dipstick Trace(A) Negative mg/dL [facility] Ketone, Urine Dipstick Negative Negative mg/dL [facility] Nitrite, Urine Dipstick Negative Negative [facility] Leukocytes, Urine Dipstick Moderate(A) Negative mcL [facility] Appearance, Urine Dipstick Cloudy(A) Clear [facility] Specific [facility] Urine Automated >=1.030(A) 1.005 - 1.030 [facility] Color, Urine Dipstick Yellow Yellow [facility] Reflex to Culture Yes [facility] Clean Catch Urine 05/11/2023 7:22 PM EDT 05/11/2023 7:31 PM EDT Narrative Resulting Agency Comment Spec In Lab Brody Suyapa Eusebio OSBORN URINE ORDERABLES Performing Organization Address City/[facility]/ZIP Co de Phone Number [facility] [place] [address] * (ABNORMAL) pro-Brain Natriuretic Peptide (05/11/2023 7:11 PM EDT) NT-proBNP >35,000(H) <=124 pg/mL [facility] Blood 05/11/2023 7:11 PM EDT 05/11/2023 7:26 PM EDT Narrative Resulting Agency Comment Spec In Lab Radha Hollins MD CHEMISTRY ORDERABL ES Performing Organization Address [facility] Co de Phone Number [facility] [place] [address] * (ABNORMAL) Lactate, whole blood, send to lab ([facility]) (05/11/2023 2:47 PM EDT) Lactate WB 2.9(H) 0.5 - 2.2 mmol/L [facility] Blood 05/11/2023 2:47 PM EDT 05/11/2023 2:53 PM EDT Narrative Resulting Agency Comment Spec In Lab Juan Luis Gonzalez MD CHEMISTRY ORDERABLES Performing Organization Address [facility] Co de Phone Number [facility] [place] [address] * (ABNORMAL) CT Angiogram Abdomen & Pelvis [...] questions please contact the health childcare center director that requested your imaging first. ? [...] questions please contact the health childcare center director that requested your imaging first. ? [...] 610 mm2 Circumference: 88 mm Calcification: Mild [id number] height: Left: 6.2 mm Right: 5.8 mm THORACIC AORTA Description: Normal course and caliber. ??Mild diffuse atherosclerotic changes. No acute aortopathy noted. Combination Saw Operator dimensions: Aortic root: 27.6 mm Max [...] 610 mm2 Circumference: 88 mm Calcification: Mild Vjoqhcy-ej-[id number] height: Left: 6.2 mm Right: 5.8 mm THORACIC AORTA Description: Normal course and caliber. Mild diffuse atheroscleroticchanges. No acute aortopathy noted. Combination Saw Operator dimensions: Aortic root: 27.6 mm Max [...] have questions please contactthe health childcare center director that requested your imaging first. Antelmo Sharma MD IMG CT ORDERABLES * (ABNORMAL) Lactate, whole blood, send to lab ([facility]) (05/11/2023 9:29 AM EDT) Lactate WB 3.1(H) 0.5 - 2.2 mmol/L [facility] Blood 05/11/2023 9:29 AM EDT 05/11/2023 9:38 AM EDT Narrative Resulting Agency Comment Spec In Lab Juan Luis Gonzalez MD CHEMISTRY ORDERABLES Performing Organization Address City/[facility]/ZIP Co de Phone Number [facility] [place] [address] * (ABNORMAL) Differential, Automated (05/11/2023 4:42 AM EDT) Neutrophil % 78.1 % [facility] Neutrophil Absolute 5.46 1.70 - 6.10 x10(3)/mc L [facility] Lymph % 10.6 % [facility] Lymphocytes Abs 0.7(L) 0.9 - 3.2 x10(3)/mc L [facility] Monocyte % 9.6 % [facility] Monocyte Abs 0.7 0.3 - 0.9 x10(3)/mc L [facility] Eos % 0.0 % [facility] Eosinophils Abs 0.0 0.0 - 0.4 x10(3)/mc L [facility] Basophil % 0.4 % [facility] Baso Absolute 0.0 0.0 - 0.1 x10(3)/mc L [facility] Immature Gran % 1.30 % [facility] Comment: Immature granulocytes(IG's)percentage and absolute count will include metamyelocytes, myelocytes, and promyelocytes. Blood smears from CBCs yielding IG's will be scanned manually for concordance. If this scan disagrees with the automated IG or if promyelocytes are noted, a manual differential will be performed. Immature Gran Absolute 0.09(H) 0.00 - 0.04 x10(3)/mc L [facility] Blood 05/11/2023 4:42 AM EDT 05/11/2023 4:49 AM EDT Narrative Resulting Agency Comment Spec In Lab Klaudia Reid MD HEMATOLOGY OR DERABLES Performing Organization Address City/[facility]/ZIP Co de Phone Number [facility] [place] [address] * (ABNORMAL) Hemogram (05/11/2023 4:42 AM EDT) White Blood Cell 7.0 4.0 - 9.5 x10(3)/mc L [facility] Red Blood Cell 3.44(L) 4.00 - 5.21 x10(6)/mc L [facility] Hemoglobin 11.1(L) 11.7 - 15.5 g/dL [facility] Hematocrit 32.7(L) 35.7 - 45.8 % [facility] Mean Cell Volume 95.1(H) 82.6 - 94.4 fL [facility] Mean Cell Hemoglobin 32.3(H) 27.1 - 32.0 pg [facility] Mean Cell Hemoglobin Concentration 33.9 31.7 - 35.0 g/dL [facility] Platelet 165 145 - 357 x10(3)/mc L [facility] RDW Standard Deviation 43.1 37.0 - 46.0 fL [facility] RDW coefficient of variation 12.7 11.5 - 14.1 % [facility] Mean Platelet Volume 10.1 7.6 - 12.9 fL [facility] NRBC% auto 0.0 % [facility] NRBC Absolute 0.000 0.000 - 0.000 x10(3)/ L [facility] Blood 05/11/2023 4:42 AM EDT 05/11/2023 4:49 AM EDT Narrative Resulting Agency Comment Spec In Lab Klaudia Reid MD HEMATOLOGY OR DERABLES Performing Organization Address City/State/[facility] Co de Phone Number [facility] [place] [address] * Heparin (unfractionated) Level (05/11/2023 4:42 AM EDT) UF Heparin 0.46 IU/mL [facility] Comment: [...] Hollins MD HEMATOLOGY ORDERAB LES [facility] [place] [address] * (ABNORMAL) Comprehensive metabolic panel (non-fasting) (05/11/2023 4:42 AM EDT) Glucose 143 65 - 199 mg/dL [facility] Comment:Diabetes: >=200 mg/d L plus symptoms Blood Urea Nitrogen 42(H) 8 - 18 mg/dL [facility] Creatinine 1.24(H) 0.70 - 1.20 mg/dL [facility] Sodium 134(L) 135 - 145 mmol/L [facility] Potassium 4.6 3.5 - 5.0 mmol/L [facility] Comment: Please note: ??Patients with WBC >100,000 may have falsely elevated Potassium levels. ??For accurate Potassium quantification in these patients send serum separator tube (gold top) for subsequent determinations. ??Contact the Clinical Chemistry Laboratory if there are any questions. Chloride 99 98 - 107 mmol/L [facility] Carbon Dioxide 14(L) 22 - 31 mmol/L [facility] Anion Gap 21(H) 5 - 15 mmol/L [facility] Calcium 9.6 8.5 - 10.5 mg/dL [facility] Protein, Total 7.2 6.1 - 8.0 g/dL [facility] Albumin 3.7 3.2 - 5.2 g/dL [facility] Aspartate Aminotransferase 144(H) 0 - 30 unit/L [facility] Comment:result rechecked-ssc Alanine Aminotransferase 130(H) 0 - 30 unit/L [facility] Comment:result rechecked-ssc Alkaline Phosphatase 72 35 - 105 unit/L [facility] Bilirubin, Total 0.8 0.2 - 1.3 mg/dL [facility] Est Glomerular Filtration Rate 48(L) >=60 mL/min/1. 73 m?? [facility] Comment: This patient's estimated GFR [...] Hollins MD CHEMISTRY ORDERABL ES [facility] [place] [id number] * EKG 12 Lead (05/10/2023 1:16 PM EDT) Ventricular rate 118 BPM MUSE SYSTEM Atrial Rate 118 BPM MUSE SYSTEM P-R Interval 152 ms MUSE SYSTEM QRS Duration 104 ms MUSE SYSTEM Q-T Interval 316 ms MUSE SYSTEM QTC Calculated (Bezet) 442 ms MUSE SYSTEM Calculated P Amity 29 degrees MUSE SYSTEM Calculated R Amity 18 degrees MUSE SYSTEM Calculated T Amity -173 degrees MUSE SYSTEM INTERPRETATION Sinus tachycardia Minimal voltage criteria for LVH, may be normal variant ( [place] product ) Septal infarct , age undetermined ST & T wave abnormality, consider lateral ischemia Abnormal ECG When compared with ECG of 10-MAY-2023 07:59, Fusion complexes are no longer Present Premature ventricular complexes are no longer Present ST no longer depressed in Anterior leads Confirmed by MD Villareal Danette ([id number]) on 05/10/2023 8:47:46 PM MUSE SYSTEM 05/10/2023 1:16 PM EDT 05/10/2023 8:47 PM EDT Juan Luis Gonzalez MD ECG ORDERABLES MUSE SYSTEM * Lactate, whole blood, send to lab ([facility]) (05/10/2023 11:52 AM EDT) Lactate WB 1.8 0.5 - 2.2 mmol/L [facility] Blood 05/10/2023 11:5 2 AM EDT 05/10/2023 12:13 PM EDT Narrative Resulting Agency Comment Spec In Lab Juan Luis Gonzalez MD CHEMISTRY ORDERABLES Performing Organization Address City/[facility]/ZIP Co de Phone Number [facility] [place] [address] * XR Chest One View (05/10/2023 11:16 [...] questions please contact the health childcare center director that requested your imaging first. ? [...] have questions please contactthe health childcare center director that requested your imaging first. Juan Luis Gonzalez MD IMG DX ORDERABLES * EKG 12 Lead (05/10/2023 7:59 AM EDT) Ventricular rate 115 BPM MUSE SYSTEM Atrial Rate 115 BPM MUSE SYSTEM P-R Interval 142 ms MUSE SYSTEM QRS Duration 102 ms MUSE SYSTEM Q-T Interval 322 ms MUSE SYSTEM QTC Calculated (Bezet) 445 ms MUSE SYSTEM Calculated P Amity 36 degrees MUSE SYSTEM Calculated R Amity 28 degrees MUSE SYSTEM Calculated T Amity -119 degrees MUSE SYSTEM INTERPRETATION Sinus tachycardia with frequent Premature ventricular complexes and Fusion complexes ST & T wave abnormality, consider lateral ischemia Abnormal ECG When compared with ECG of 08-MAY-2023 15:51, No significant change was found I personally reviewed the tracing and edited the fellows interpretation Confirmed by fellow MD Anitha, Carissa ([id number]) on 05/11/2023 6:19:54 AM Confirmed by MD Tram, Chel ([id number]) on 05/11/2023 3:18:56 PM MUSE SYSTEM 05/10/2023 7:59 AM EDT 05/11/2023 3:18 PM EDT Radha Hollins MD ECG ORDERABLES MUSE SYSTEM * (ABNORMAL) Differential, Automated (05/10/2023 2:28 AM EDT) Neutrophil % 77.1 % [facility] Neutrophil Absolute 4.01 1.70 - 6.10 x10(3)/mc L [facility] Lymph % 14.0 % [facility] Lymphocytes Abs 0.7(L) 0.9 - 3.2 x10(3)/mc L [facility] Monocyte % 7.7 % [facility] Monocyte Abs 0.4 0.3 - 0.9 x10(3)/mc L [facility] Eos % 0.4 % [facility] Eosinophils Abs 0.0 0.0 - 0.4 x10(3)/mc L [facility] Basophil % 0.4 % [facility] Baso Absolute 0.0 0.0 - 0.1 x10(3)/mc L [facility] Immature Gran % 0.40 % [facility] Comment: Immature granulocytes(IG's)percentage and absolute count will include metamyelocytes, myelocytes, and promyelocytes. Blood smears from CBCs yielding IG's will be scanned manually for concordance. If this scan disagrees with the automated IG or if promyelocytes are noted, a manual differential will be performed. Immature Gran Absolute 0.02 0.00 - 0.04 x10(3)/mc L [facility] Blood 05/10/2023 2:28 AM EDT 05/10/2023 2:57 AM EDT Narrative Resulting Agency Comment Spec In Lab Klaudia Reid MD HEMATOLOGY OR DERABLES [facility] [place] [address] * (ABNORMAL) Hemogram (05/10/2023 2:28 AM EDT) White Blood Cell 5.2 4.0 - 9.5 x10(3)/mc L [facility] Red Blood Cell 3.11(L) 4.00 - 5.21 x10(6)/mc L [facility] Hemoglobin 10.2(L) 11.7 - 15.5 g/dL [facility] Hematocrit 30.2(L) 35.7 - 45.8 % [facility] Mean Cell Volume 97.1(H) 82.6 - 94.4 fL [facility] Mean Cell Hemoglobin 32.8(H) 27.1 - 32.0 pg [facility] Mean Cell Hemoglobin Concentration 33.8 31.7 - 35.0 g/dL [facility] Platelet 151 145 - 357 x10(3)/mc L [facility] RDW Standard Deviation 44.9 37.0 - 46.0 fL [facility] RDW coefficient of variation 12.8 11.5 - 14.1 % [facility] Mean Platelet Volume 9.8 7.6 - 12.9 fL [facility] NRBC% auto 0.0 % [facility] NRBC Absolute 0.000 0.000 - 0.000 x10(3)/ L [facility] Blood 05/10/2023 2:28 AM EDT 05/10/2023 2:57 AM EDT Narrative Resulting Agency Comment Spec In Lab Klaudia Reid MD HEMATOLOGY OR DERABLES Performing Organization Address City/[facility]/ZIP Co de Phone Number [facility] [place] [address] * (ABNORMAL) Comprehensive metabolic panel (non-fasting) (05/10/2023 2:28 AM EDT) Glucose 100 65 - 199 mg/dL [facility] Comment:Diabetes: >=200 mg/d L plus symptoms Blood Urea Nitrogen 30(H) 8 - 18 mg/dL [facility] Creatinine 0.90 0.70 - 1.20 mg/dL [facility] Sodium 134(L) 135 - 145 mmol/L [facility] Potassium 4.1 3.5 - 5.0 mmol/L [facility] Comment: Please note: ??Patients with WBC >100,000 may have falsely elevated Potassium levels. ??For accurate Potassium quantification in these patients send serum separator tube (gold top) for subsequent determinations. ??Contact the Clinical Chemistry Laboratory if there are any questions. Chloride 102 98 - 107 mmol/L [facility] Carbon Dioxide 20(L) 22 - 31 mmol/L [facility] Anion Gap 12 5 - 15 mmol/L [facility] Calcium 9.3 8.5 - 10.5 mg/dL [facility] Protein, Total 6.4 6.1 - 8.0 g/dL [facility] Albumin 3.7 3.2 - 5.2 g/dL [facility] Aspartate Aminotransferase 24 0 - 30 unit/L [facility] Alanine Aminotransferase 14 0 - 30 unit/L [facility] Alkaline Phosphatase 70 35 - 105 unit/L [facility] Bilirubin, Total 0.5 0.2 - 1.3 mg/dL [facility] Est Glomerular Filtration Rate 70 >=60 mL/min/1. 73 m?? [facility] Comment: This patient's estimated GFR [...] Lab Radha Hollins [place] [address] * Heparin (unfractionated) Level (05/10/2023 2:28 AM EDT) Pathologist [facility] UF Heparin 0.37 IU/mL [facility] Comment: Heparin (anti-Xa) levels [...] MD HEMATOLOGY ORDERAB LES Performing Organization Address [facility]/State/[facility] [place] [address] * (ABNORMAL) Differential, Automated (05/09/2023 4:00 AM EDT) [facility] Neutrophil % 81.7 % [facility] Neutrophil Absolute 5.26 1.70 - 6.10 x10(3)/mc L [facility] Lymph % 10.7 % [facility] Lymphocytes Abs 0.7(L) 0.9 - 3.2 x10(3)/mc L [facility] Monocyte % 6.5 % [facility] Monocyte Abs 0.4 0.3 - 0.9 x10(3)/mc L [facility] Eos % 0.5 % [facility] Eosinophils Abs 0.0 0.0 - 0.4 x10(3)/mc L [facility] Basophil % 0.3 % [facility] Baso Absolute 0.0 0.0 - 0.1 x10(3)/mc L [facility] Immature Gran % 0.30 % [facility] Comment: Immature granulocytes(IG's)percentage and absolute count will include metamyelocytes, myelocytes, and promyelocytes. Blood smears from CBCs yielding IG's will be scanned manually for concordance. If this scan disagrees with the automated IG or if promyelocytes are noted, a manual differential will be performed. Immature Gran Absolute 0.02 0.00 - 0.04 x10(3)/mc L [facility] Blood 05/09/2023 4:00 AM EDT 05/09/2023 4:19 AM EDT Narrative Resulting Agency Comment Spec In Lab Klaudia Reid MD HEMATOLOGY OR DERABLES Performing Organization Address City/State/[facility] Co de Phone Number [facility] [place] [address] * (ABNORMAL) Hemogram (05/09/2023 4:00 AM EDT) White Blood Cell 6.4 4.0 - 9.5 x10(3)/mc L [facility] Red Blood Cell 3.15(L) 4.00 - 5.21 x10(6)/ L [facility] Hemoglobin 10.2(L) 11.7 - 15.5 g/dL [facility] Hematocrit 30.3(L) 35.7 - 45.8 % [facility] Mean Cell Volume 96.2(H) 82.6 - 94.4 fL [facility] Mean Cell Hemoglobin 32.4(H) 27.1 - 32.0 pg [facility] Mean Cell Hemoglobin Concentration 33.7 31.7 - 35.0 g/dL [facility] Platelet 151 145 - 357 x10(3)/mc L [facility] RDW Standard Deviation 44.7 37.0 - 46.0 fL [facility] RDW coefficient of variation 12.8 11.5 - 14.1 % [facility] Mean Platelet Volume 9.4 7.6 - 12.9 fL [facility] NRBC% auto 0.0 % [facility] NRBC Absolute 0.000 0.000 - 0.000 x10(3)/mc L [facility] Blood 05/09/2023 4:00 AM EDT 05/09/2023 4:19 AM EDT Narrative Resulting Agency Comment Spec In Lab Klaudia Reid MD HEMATOLOGY OR DERABLES Performing Organization Address [facility] Co de Phone Number [facility] [place] [address] * Heparin (unfractionated) Level (05/09/2023 4:00 AM [...] MD HEMATOLOGY ORDERAB LES Performing Organization Address [facility] Co de Phone Number [facility] [place] [address] * (ABNORMAL) Comprehensive metabolic panel (non-fasting) (05/09/2023 4:00 AM EDT) Glucose 108 65 - 199 mg/dL [facility] Comment:Diabetes: >=200 mg/d L plus symptoms Blood Urea Nitrogen 31(H) 8 - 18 mg/dL [facility] Creatinine 1.03 0.70 - 1.20 mg/dL [facility] Sodium 137 135 - 145 mmol/L [facility] Potassium 4.4 3.5 - 5.0 mmol/L [facility] Comment: Please note: ??Patients with WBC >100,000 may have falsely elevated Potassium levels. ??For accurate Potassium quantification in these patients send serum separator tube (gold top) for subsequent determinations. ??Contact the Clinical Chemistry Laboratory if there are any questions. Chloride 102 98 - 107 mmol/L [facility] Carbon Dioxide 20(L) 22 - 31 mmol/L [facility] Anion Gap 15 5 - 15 mmol/L [facility] Calcium 9.3 8.5 - 10.5 mg/dL [facility] Protein, Total 6.6 6.1 - 8.0 g/dL [facility] Albumin 3.8 3.2 - 5.2 g/dL [facility] Aspartate Aminotransferase 32(H) 0 - 30 unit/L [facility] Alanine Aminotransferase 18 0 - 30 unit/L [facility] Alkaline Phosphatase 78 35 - 105 unit/L [facility] Bilirubin, Total 0.5 0.2 - 1.3 mg/dL [facility] Est Glomerular Filtration Rate 60 >=60 mL/min/1. 73 m?? [facility] Comment: This patient's estimated GFR [...] Hollins MD CHEMISTRY ORDERABL ES [facility] [place] [address] * (ABNORMAL) pro-Brain Natriuretic Peptide (05/08/2023 4:00 PM EDT) NT-proBNP 25,503(H) <=124 pg/mL [facility] Blood Venous Draw / Unknown 05/08/2023 4:00 PM EDT 05/08/2023 4:25 PM EDT Narrative Resulting Agency Comment Spec In Lab Juan Luis Gonzalez MD CHEMISTRY ORDERABLES Performing Organization Address [facility] Co de Phone Number [facility] [address] * Magnesium (05/08/2023 4:00 PM EDT) Pathologist [facility] Magnesium 0.82 0.69 - 1.07 mmol/L [facility] Blood 05/08/2023 4:00 PM EDT 05/08/2023 4:06 PM EDT Narrative Resulting Agency Comment Spec In Lab Enrique Chua MD CHEMISTRY ORDERABLES Performing Organization Address [facility] Co de Phone Number [facility] [place] [address] * Potassium (05/08/2023 4:00 PM EDT) Pathologist [facility] Potassium 3.9 3.5 - 5.0 mmol/L [facility] Comment: Please note: ??Patients with [...] MD CHEMISTRY ORDERABL ES Performing Organization Address [facility] Co de Phone Number [facility] [place] [address] * Heparin (unfractionated) Level (05/08/2023 4:00 PM EDT) Pathologist [facility] UF Heparin 0.43 IU/mL [facility] Comment: Heparin (anti-Xa) levels [...] MD HEMATOLOGY ORDERAB LES Performing Organization Address City/[facility] Co de Phone Number [facility] [place] [address] * EKG 12 Lead (05/08/2023 3:51 PM EDT) [facility] Ventricular rate 98 BPM MUSE SYSTEM Atrial Rate 98 BPM MUSE SYSTEM P-R Interval 150 ms MUSE SYSTEM QRS Duration 102 ms MUSE SYSTEM Q-T Interval 358 ms MUSE SYSTEM QTC Calculated (Bezet) 457 ms MUSE SYSTEM Calculated P Amity 38 degrees MUSE SYSTEM Calculated R Amity 48 degrees MUSE SYSTEM Calculated T Amity -112 degrees MUSE SYSTEM INTERPRETATION Sinus rhythm with frequent and consecutive Premature ventricular and fusion complexes Septal infarct , age undetermined ST & T wave abnormality, consider anterolateral ischemia Abnormal ECG When compared with ECG of 09-NOV-2022 11:17, T wave inversion now evident in Anterolateral leads Confirmed by MD Harshil, Enrique Bell ([id number]) on 05/10/2023 8:11:46 AM MUSE SYSTEM 05/08/2023 3:51 PM EDT 05/10/2023 8:11 AM EDT Radha Hollins MD ECG ORDERABLES Performing Organization Address City/[facility]/ZIP Co de Phone Number MUSE SYSTEM * (ABNORMAL) Differential, Automated (05/08/2023 11:38 AM EDT) Neutrophil % 71.3 % [facility] Neutrophil Absolute 2.91 1.70 - 6.10 x10(3)/[facility] Lymph % 19.1 % [facility] Lymphocytes Abs 0.8(L) 0.9 - 3.2 x10(3)/[facility] Monocyte % 9.0 % [facility] Monocyte Abs 0.4 0.3 - 0.9 x10(3)/[facility] Eos % 0.2 % [facility] Eosinophils Abs 0.0 0.0 - 0.4 x10(3)/[facility] Basophil % 0.2 % [facility] Baso Absolute 0.0 0.0 - 0.1 x10(3)/[facility] Immature Gran % 0.20 % [facility] Comment: Immature granulocytes(IG's)percentage and absolute count will include metamyelocytes, myelocytes, and promyelocytes. Blood smears from CBCs yielding IG's will be scanned manually for concordance. If this scan disagrees with the automated IG or if promyelocytes are noted, a manual differential will be performed. Immature Gran Absolute 0.01 0.00 - 0.04 x10(3)/[facility] Blood 05/08/2023 11:3 8 AM EDT 05/08/2023 11:44 AM EDT Narrative Resulting Agency Comment Spec In Lab Lincoln Sal MD HEMATOLOGY ORDERA BLES Performing Organization Address City/State/[facility] Co de Phone Number [facility] [place] [address] * (ABNORMAL) Hemogram (05/08/2023 11:38 AM EDT) Pathologist [facility] White Blood Cell 4.1 4.0 - 9.5 x10(3)/[facility] Red Blood Cell 3.05(L) 4.00 - 5.21 x10(6)/[facility] Hemoglobin 10.2(L) 11.7 - 15.5 g/dL [facility] Hematocrit 29.6(L) 35.7 - 45.8 % [facility] Mean Cell Volume 97.0(H) 82.6 - 94.4 fL [facility] Mean Cell Hemoglobin 33.4(H) 27.1 - 32.0 pg [facility] Mean Cell Hemoglobin Concentration 34.5 31.7 - 35.0 g/dL [facility] Platelet 136(L) 145 - 357 x10(3)/mc L [facility] RDW Standard Deviation 44.3 37.0 - 46.0 fL [facility] RDW coefficient of variation 12.6 11.5 - 14.1 % [facility] Mean Platelet Volume 9.4 7.6 - 12.9 fL [facility] NRBC% auto 0.0 % [facility] NRBC Absolute 0.000 0.000 - 0.000 x10(3)/mc L [facility] Blood 05/08/2023 11:3 8 AM EDT 05/08/2023 11:44 AM EDT Narrative Resulting Agency Comment Spec In Lab Lincoln Sal MD HEMATOLOGY ORDERA BLES Performing Organization Address City/[facility] Co de Phone Number [facility] [place] [address] * TSH (05/08/2023 11:38 AM EDT) Pathologist [facility] Thyroid Stimulating Hormone 1.27 0.27 - 4.20 mcIU/mL [facility] Comment: Reference Interval (mcIU/mL): Females: ??First Trimester: 0.23-3.88 ??Second Trimester: 0.22-3.90 ??Third Trimester: 0.44-4.66 Blood 05/08/2023 11:3 8 AM EDT 05/08/2023 11:44 AM EDT Narrative Resulting Agency Comment Spec In Lab Enrique Chua MD CHEMISTRY ORDERABLES Performing Organization Address City/[facility]/ZIP Co de Phone Number [facility] [place] [address] * (ABNORMAL) Phosphorus (05/08/2023 11:38 AM EDT) Phosphorus 4.7(H) 2.5 - 4.5 mg/dL [facility] Blood 05/08/2023 11:3 8 AM EDT 05/08/2023 11:44 AM EDT Narrative Resulting Agency Comment Spec In Lab Enrique Chua MD CHEMISTRY ORDERABLES Performing Organization Address [facility] Co de Phone Number [facility] [place] [address] * Magnesium (05/08/2023 11:38 AM EDT) Magnesium 0.76 0.69 - 1.07 mmol/L [facility] Blood 05/08/2023 11:3 8 AM EDT 05/08/2023 11:44 AM EDT Narrative Resulting Agency Comment Spec In Lab Enrique Chua MD CHEMISTRY ORDERABLES Performing Organization Address [facility] de Phone Number [facility] [place] [address] * (ABNORMAL) Basic Metabolic Panel (non-fasting) (05/08/2023 11:38 AM EDT) Glucose 97 65 - 199 mg/dL [facility] Comment:Diabetes: >=200 mg/d L plus symptoms Blood Urea Nitrogen 27(H) 8 - 18 mg/dL [facility] Creatinine 1.02 0.70 - 1.20 mg/dL [facility] Sodium 139 135 - 145 mmol/L [facility] Potassium 4.2 3.5 - 5.0 mmol/L [facility] Comment: Please note: ??Patients with WBC >100,000 may have falsely elevated Potassium levels. ??For accurate Potassium quantification in these patients send serum separator tube (gold top) for subsequent determinations. ??Contact the Clinical Chemistry Laboratory if there are any questions. Chloride 105 98 - 107 mmol/L [facility] Carbon Dioxide 20(L) 22 - 31 mmol/L [facility] Anion Gap 14 5 - 15 mmol/L [facility] Calcium 9.4 8.5 - 10.5 mg/dL [facility] Est Glomerular Filtration Rate 60 >=60 mL/min/1. 73 m?? [facility] Comment: This patient's estimated GFR [...] Enrique Chua MD CHEMISTRY ORDERABLES [facility] [place] [address] * ECHO COMPLETE (05/08/2023 11:02 AM EDT) EF 25 [employer] SYSTEM Anatomical Region Laterality Modality Cardiac Other 05/08/2023 10:0 3 AM EDT Narrative 05/08/2023 11:51 AM EDT ? Echocardiogram Report Name: KIRSTIE PURNIMA M ?Study Date: 05/08/2023 10:03 AMBP: 92/64 mmHg ? Patient Location: [facility]^CV29^[id number] : 1955 ? Height: 155 cm ? Account: [id number] Age: 67 yrs ? Weight: 78 kg [...] worsening stenosis. Mitral regurgitation is similar. Procedure Complete-[id number]. Satisfactory quality. There is normal sinus rhythm. [...] Study Date: 0:03 AMBP: 92/64 mmHg Patient Location:[facility]^CV29^A : 1955 Height: 155 cm Account: [id number] Age: 67 yrs Weight: 78 kg Gender: [...] suggestsworsening stenosis. Mitral regurgitation is similar. Procedure Complete-[id number]. Satisfactory quality. There is normal sinus rhythm. [...] 9:45 AM EDT) UF Heparin 0.54 IU/mL [facility] Comment: Heparin (anti-Xa) [...] Enrique Chua MD HEMATOLOGY ORDERABLE S [facility] [place] [address] documented in this encounter Visit Diagnoses Diagnosis S/P TAVR (transcatheter aortic valve replacement)- Primary Aortic valve stenosis, etiology of cardiac valve disease unspecified Heart failure with reduced ejection fraction due to heart valve disease Mild coronary artery disease by [facility] 11/09/2022 Mixed connective tissue disease Other specified [...] Mild coronary artery disease by [facility] 11/09/2022 Stenosis of prosthetic aortic valve (Bovine [...] Provider: Kia Gallego RN)2012 (Given - Provider: Fvaian Mckeon RN) 0828 (Given - Provider: Kia [...] Routine documented in this encounter Care Teams Facility Supervisor Relationship Specialty Start Date End Date Magdalena Acosta MD [address] [place] [address] PCP - General Family Medicine 02/05/23 documented as of this encounter
--- OUTSIDE RECORDS SUMMARY | 2024-05-18 14:05 | XMS_ITS | Encounter Summary ---
Author Organization [facility] Address [facility] [place] [address] Care Team Providers Care Lock Corner Machine Operator Name Role Phone Magdalena Acosta MD Primary Care Provider [phone] Encounter Details Date Type Department Care Team (Late st Contact Info) Description 04/27/2023 3:00 PM EDT Office [place] [address] Magdalena Peralta MD [facility] [place] [address] Mixed connective tissue disease Social History Tobacco [...] 1:5120 speckled; VIC negative; Myositis panel with INVESTIGATIVE WRITER ab 149.1 (positive); Anti U1RNP IgG 119; [...] PM EDT Hospital Encounter [place] [address] Markel Borjas MD [facility] DR [place] [address] 05/29/2024 2:00 PM EDT - 05/29/2024 2:43 PM EDT Surgery [place] [address] Markel Borjas MD [facility] DR [place] [address] (OSC MSURG) BONE MARROW BIOPSY AND ASPIRATION; DIAGNOSTIC (WRVU 1.44) 06/23/2024 2:00 PM EST Office Visit Hematology [place] [address] Markel Borjas MD [facility] DR [place] [address] 03/01/2025 4:15 PM EDT Office Visit Dermatology at [place] [address] [place] [address] Marek Bonilla MD [address], [place] [address] Scheduled Procedures Name Priority Associated Diagnoses Date/Ti me (OSC MSURG) BONE MARROW BIOPSY AND ASPIRATION; DIAGNOSTIC (WRVU 1.44) Anemia, in pt with longstanding neutropenia 05/29/2024 2:00 PM EDT documented as of this encounter Visit Diagnoses Diagnosis Mixed connective tissue disease Other specified diffuse disease of connective tissue documented in this encounter Care Teams Lock Corner Machine Operator Relationship Specialty Start Date End Date Magdalena Acosta MD [address] [place] [address] PCP - General Family Medicine 02/05/23 documented as of this encounter
--- OUTSIDE RECORDS SUMMARY | 2024-05-18 14:05 | XMS_ITS | Encounter Summary ---
Author Organization [facility] [address] Care Team Providers Care Blueprint Tracer Name Role Phone Magdalena Acosta MD Primary Care Provider [phone] Encounter Details Date Type Department Care Team (Late st Contact Info) Description 03/29/2023 Notes Only Cardiology at [address] [phone] Vahid Plasencia, RN Social History Tobacco Use [...] 82/51; Mild AR; Moderate MR; Trace TR [facility] 11/09/2022: Non obstructive CAD STS 4.1 Plan:Schedule SDM clinic, diagnostics and frailty assessment. documented in this encounter Plan of Treatment Upcoming Encounters Date Type Department Care Team (Late st Contact Info) Description 05/29/2024 2:00 PM EDT Hospital Encounter Outpatient [place] [address] Markel Borjas MD [facility] DR [place] [address] 05/29/2024 2:00 PM EDT - 05/29/2024 2:43 PM EDT Surgery Outpatient [place] [address] Markel Borjas MD [facility] DR [place] [address] (OSC MSURG) BONE MARROW BIOPSY AND ASPIRATION; DIAGNOSTIC (WRVU 1.44) 06/23/2024 2:00 PM EST Office Visit Hematology [place] [address] Markel Borjas MD [facility] DR [place] [address] 03/01/2025 4:15 PM EDT Office Visit Dermatology at [place] [address] [place] [phone] Marek Bonilla MD [address], [place] [address] Scheduled Procedures Name Priority Associated Diagnoses Date/Ti me (OSC MSURG) BONE MARROW BIOPSY AND ASPIRATION; DIAGNOSTIC (WRVU 1.44) Anemia, in pt with longstanding neutropenia 05/29/2024 2:00 PM EDT documented as of this encounter Visit Diagnoses Not on filedocumented in this encounter Care Teams Blueprint Tracer Relationship Specialty Start Date End Date Magdalena Acosta MD [address] [place] [address] PCP - General Family Medicine 02/05/23 documented as of this encounter
--- OUTSIDE RECORDS SUMMARY | 2024-05-18 14:05 | XMS_ITS | Encounter Summary ---
Author Organization [facility] [place] [address] Care Team Providers Care Phd Internship Name Role Phone Magdalena Acosta MD Primary Care Provider [phone] Encounter Details Date Type Department Care Team (Latest Contact Info) Description 02/05/2023 9:33 PM EDT - 02/05/2023 11:59 PM EDT [place] [phone] Discharge Disposition: Home Social History Tobacco Use [...] PM EDT Hospital Encounter Outpatient [place] [phone] Markel Borjas MD [facility] DR HEMATOLOGY [place] [address] 05/29/2024 2:00 PM EDT - 05/29/2024 2:43 PM EDT Surgery Outpatient [place] [address] Markel Borjas MD [facility] HEMATOLOGY [place] [address] (OSC MSURG) BONE MARROW BIOPSY AND ASPIRATION; DIAGNOSTIC (WRVU 1.44) 06/23/2024 2:00 PM EST Office Visit Hematology [place] [address] Markel Borjas MD [facility] DR HEMATOLOGY [place] [address] 03/01/2025 4:15 PM EDT Office Visit Dermatology at [place] [address] [place] [address] Marek Bonilla MD [address], [place] [address] Scheduled Procedures Name Priority Associated [...] Report (02/05/2023 3:00 PM EDT) Final Diagnosis [id number] ? Location: OPW The signing pathologist has [...] Performed at: ??-[facility] [place] Dept. of Pathology, [place] [address] Voice Data Communications Engineer: Kunal Rubi MD, FCAP, ??CLIA Certificate: [id number] DISCUSSION If there is an obvious clinical [...] EDT Marek Bonilla MD PATHOLOGY/CYTOLOGY O REMI [facility] [address] [place] [address] documented in this encounter Visit Diagnoses Not on filedocumented in this encounter Care Teams Phd Internship Relationship Specialty Start Date End Date Magdalena Acosta MD [address] [place] [address] PCP - General Family Medicine 02/05/23 documented as of this encounter
--- OUTSIDE RECORDS SUMMARY | 2024-05-18 14:05 | XMS_ITS | Encounter Summary ---
[place] [address] Care Team Providers Care Testing Manager Name Role Phone Magdalena Acosta MD Primary Care Provider [phone] Encounter Details Date Type Department Care Team [...] PM EDT Hospital Encounter Outpatient [place] [phone] Markel Borjas MD [facility] DR HEMATOLOGY [place] [address] 05/29/2024 2:00 PM EDT - 05/29/2024 2:43 PM EDT Surgery Outpatient [place] [phone] Markel Borjas MD [facility] DR HEMATOLOGY [place] [address] (OSC MSURG) BONE MARROW BIOPSY AND ASPIRATION; DIAGNOSTIC (WRVU 1.44) 06/23/2024 2:00 PM EST Office Visit Hematology [place] [address] Markel Borjas MD [facility] DR HEMATOLOGY [place] [address] 03/01/2025 4:15 PM EDT Office Visit Dermatology at [place] [address] [place] [address] Marek Bonilla MD [address] [place] [address] Scheduled Procedures Name Priority Associated Diagnoses Date/Ti me (OSC MSURG) BONE MARROW BIOPSY AND ASPIRATION; DIAGNOSTIC (WRVU 1.44) Anemia, in pt with longstanding neutropenia 05/29/2024 2:00 PM EDT documented as of this encounter Visit Diagnoses Not on filedocumented in this encounter Care Teams Testing Manager Relationship Specialty Start Date End Date Magdalena Acosta MD [address] [place] [address] PCP - General Family Medicine 02/05/23 documented as of this encounter
--- OUTSIDE RECORDS SUMMARY | 2024-05-18 14:05 | XMS_ITS | Encounter Summary ---
[place] [address] Care Team Providers Care Fruit And Vegetable Packer Name Role Phone Magdalena Acosta MD Primary Care Provider [phone] Encounter Details Date Type Department Care Team [...] PM EDT Hospital Encounter [place]patient [place] [phone] Markel Borjas MD [facility] [address] [place] [address] 05/29/2024 2:00 PM EDT - 05/29/2024 2:43 PM EDT Surgery [place]patient [place] [phone] Markel Borjas MD [facility] [address] [place] [address] (OSC MSURG) BONE MARROW BIOPSY AND ASPIRATION; DIAGNOSTIC (WRVU 1.44) 06/23/2024 2:00 PM EST Office Visit [place] [address] Markel Borjsa MD [facility] [address] [place] [address] 03/01/2025 4:15 PM EDT Office Visit Dermatology at [place] [address] [place] [address] Marek Bonilla MD [address] [place] [address] Scheduled Procedures Name Priority Associated Diagnoses Date/Ti me (OSC MSURG) BONE MARROW BIOPSY AND ASPIRATION; DIAGNOSTIC (WRVU 1.44) Anemia, in pt with longstanding neutropenia 05/29/2024 2:00 PM EDT documented as of this encounter Visit Diagnoses Not on filedocumented in this encounter Care Teams Fruit And Vegetable Packer Relationship Specialty Start Date End Date Magdalena Acosta MD [address] [place] [address] PCP - General Family Medicine 02/05/23 documented as of this encounter
--- OUTSIDE RECORDS SUMMARY | 2024-05-18 14:05 | XMS_ITS | Encounter Summary ---
Author Organization [facility] Address [facility] [place] [address] Care Team Providers Care Raw Mill Operator Name Role Phone Magdalena Acosta MD Primary Care Provider [phone] Reason for Visit * Consultation (Routine) - Closed Specialty Diagnoses / Procedures Referred By Contac t Referred To Contact Rheumatology Diagnoses Weakness Kyra Haas MD [facility] [address] [place] [address] [facility] Rheumatology [address] [place] [phone] Referral ID Status Reason Start Date Expiration Date V isits Requested Visits Authorized [id number] Closed Consult, Test & Treat PCP Updated and/or Approved 02/25/2023 02/25/2024 6 6 Encounter Details Date Type Department Care Team (Late st Contact Info) Description 03/18/2023 1:00 PM EDT Office [place] [address] Kia Viramontes DO [facility] [place] [address] Magdalena Peralta MD [facility] [place] [address] Positive FRANCISCO (antinuclear antibody) Social [...] 1:5120 speckled VIC negative Myositis panel with ASSOCIATE PROFESSOR OF CHURCH MUSIC ab 149.1 (positive) Anti U1RNP IgG 119 [...] a chair without assistance of upper extremities. Process Controller strength 3+/5 bilaterally; otherwise large muscle groups [...] due to risk of retinal toxicity with long term care administrator Plaquenil use, which she already does. Recommendations: #mixed connective tissue disease Start hydroxychloroquine 200 mg qd Labs today: repeat FRANCISCO, dsDNA, complements, CBC, CMP, CK, ESR, CRP Follow up 1 month The patient was seen and discussed with Dr. Wander Peralta MD Rheumatology Fellow Pager: [phone] CC: Kyra Haas * Kia Viramontes DO [...] PM EDT Hospital Encounter Outpatient [place] [phone] Markel Borjas MD [facility] DR HEMATOLOGY [place] [address] 05/29/2024 2:00 PM EDT - 05/29/2024 2:43 PM EDT Surgery Outpatient [place] [address] Markel Borjas MD [facility] DR HEMATOLOGY [place] [address] (OSC MSURG) BONE MARROW BIOPSY AND ASPIRATION; DIAGNOSTIC (WRVU 1.44) 06/23/2024 2:00 PM EST Office Visit [place]ematology [place] [address] Markel Borjas MD [facility] DR HEMATOLOGY [place] [address] 03/01/2025 4:15 PM EDT Office Visit Dermatology at [place] [address] [place] [address] Marek Bonilla MD [address], [place] [address] Scheduled Procedures Name Priority Associated Diagnoses Date/Ti [...] Urea Nitrogen 18 8 - 18 mg/dL [facility] Creatinine 0.99 0.70 - 1.20 mg/dL [facility] Sodium 141 135 - 145 mmol/L [facility] Potassium 4.5 3.5 - 5.0 mmol/L [facility] Comment: Please note: ??Patients with WBC >100,000 may have falsely elevated Potassium levels. ??For accurate Potassium quantification in these patients send serum separator tube (gold top) for subsequent determinations. ??Contact the Clinical Chemistry Laboratory if there are any questions. Chloride 106 98 - 107 mmol/L [facility] Carbon Dioxide 24 22 - 31 mmol/L [facility] Anion Gap 11 5 - 15 mmol/L [facility] Calcium 10.0 8.5 - 10.5 mg/dL [facility] Protein, Total 7.3 6.1 - 8.0 g/dL [facility] Albumin 4.3 3.2 - 5.2 g/dL [facility] Aspartate Aminotransferase 26 0 - 30 unit/L [facility] Alanine Aminotransferase 11 0 - 30 unit/L [facility] Alkaline Phosphatase 91 35 - 105 unit/L [facility] Bilirubin, Total 0.4 0.2 - 1.3 mg/dL [facility] Est Glomerular Filtration Rate 62 >=60 mL/min/1. 73 m?? [facility] [...] Kia James Wander DO CHEMISTRY ORDERABL ES [facility] [place] [address] * (ABNORMAL) FRANCISCO Ab by IFA (03/18/2023 2:14 PM EDT) FRANCISCO Ab Screen Test ? Result ?Flag ??Unit ??RefValue Antinuclear Ab, HEp-2 ?Positive 1:2560 ??@ ?<1:80 (Negative) ??Substrate, S ? ADDITIONAL INFORMATION --------- ?Method: Immunofluorescence using HEp-2 cellular substrate. ??FRANCISCO Titer: ? 1:2560 ??FRANCISCO Pattern: ? Speckled ?Test Performed by: ?[facility] ?[address] [place] [address] ?Distributor Publications: Raymond Chaudhry M.D. Ph.D.; CLIA# [id number] (A) [facility] Blood 03/18/2023 2:14 PM EDT 03/18/2023 3:02 PM EDT Narrative Resulting Agency Comment Spec In Lab Kia Viramontes DO CHEMISTRY ORDERABL ES Performing Organization Address [facility] Co de Phone Number [facility] [place] [address] * DNA Antibody (Double-Stranded) (03/18/2023 2:14 PM EDT) dsDNA Ab <0.6 <=15.0 IU/mL [facility] Comment: <10 negative 10-15 equivocal >15 positive This dsDNA antibody result was generated using a fluoroenzyme immunoassay on the Ringly 250 analyzer. This quantitative test is designed to detect IgG antibodies directed against double stranded DNA in human serum. The presence of antibodies that recognize dsDNA is a highly specific marker for systemic lupus erythematosus. Please note that as of 05/26/2022 that this testing is performed by the Special Chemistry Laboratory at [facility]. This change in testing location is associated with a change is testing method and reference intervals. Please review the results of this test in association with the posted reference intervals. Blood 03/18/2023 2:14 PM EDT 03/19/2023 7:19 AM EDT Narrative Resulting Agency Comment Spec In Lab Kia Viramontes DO LAB SEND OUT ORDER JODIE Performing Organization Address [facility] Co de Phone Number [facility] [place] [address] * CK (03/18/2023 2:14 PM EDT) Creatine Kinase 38 0 - 160 unit/L [facility] Blood 03/18/2023 2:14 PM EDT 03/18/2023 2:24 PM EDT Narrative Resulting Agency Comment Spec In Lab Kia Viramontes DO CHEMISTRY ORDERABL ES Performing Organization Address [facility]/ZIP Co de Phone Number [facility] [place] [address] * C4 Complement (03/18/2023 2:14 PM EDT) Complement C4 30 10 - 40 mg/dL [facility] Blood 03/18/2023 2:14 PM EDT 03/18/2023 2:24 PM EDT Narrative Resulting Agency Comment Spec In Lab Kia D Wander DO CHEMISTRY ORDERABL ES Performing Organization Address [facility] Co de Phone Number [facility] [place] [address] * C3 Complement (03/18/2023 2:14 PM EDT) Complement C3 142 90 - 180 mg/dL [facility] Blood 03/18/2023 2:14 PM EDT 03/18/2023 2:24 PM EDT Narrative Resulting Agency Comment Spec In Lab Kiagiacomo Viramontes DO CHEMISTRY ORDERABL ES Performing Organization Address [facility] Co de Phone Number [facility] [place] [address] * CRP, acute inflammation (03/18/2023 2:14 PM EDT) C-Reactive Protein 3.0 <=4.9 mg/L [facility] Blood 03/18/2023 2:14 PM EDT 03/18/2023 2:24 PM EDT Narrative Resulting Agency Comment Spec In Lab Kia D Wander DO CHEMISTRY ORDERABL ES Performing Organization Address [facility] Co de Phone Number [facility] [place] [address] * (ABNORMAL) Sedimentation rate (03/18/2023 2:14 PM EDT) Sedimentation Rate Automated 68(H) 2 - 39 mm/hr [facility] Comment: Effective July 12, 2019 new capillary photometric technology has resulted in a change in reference ranges. It is recommended that each ESR result be reviewed with its own age appropriate reference range. Blood 03/18/2023 2:14 PM EDT 03/18/2023 2:24 PM EDT Narrative Resulting Agency Comment Spec In Lab Kia Viramontes DO HEMATOLOGY ORDERAB LES Performing Organization Address City/State/[facility] Co de Phone Number [facility] [place] [address] documented in this encounter Visit Diagnoses Diagnosis Positive FRANCISCO (antinuclear antibody) Other and unspecified nonspecific immunological findings documented in this encounter Care Teams Raw Mill Operator Relationship Specialty Start Date End Date Magdalena Acosta MD [address] [place] [address] PCP - General Family Medicine 02/05/23 documented as of this encounter
--- OUTSIDE RECORDS SUMMARY | 2024-05-18 14:05 | XMS_ITS | Encounter Summary ---
[place] [address] Care Team Providers Care Specifications Writer Name Role Phone Magdalena Acosta MD Primary Care Provider [phone] Encounter Details Date Type Department Care Team [...] PM EDT Hospital Encounter [place] [phone] Markel Borjas MD [facility] DR [place] [address] 05/29/2024 2:00 PM EDT - 05/29/2024 2:43 PM EDT Surgery [place] [address] Markel Borjas MD [facility] DR [place] [address] (OSC MSURG) BONE MARROW BIOPSY AND ASPIRATION; DIAGNOSTIC (WRVU 1.44) 06/23/2024 2:00 PM EST Office Visit Hematology [place] [address] Markel Borjas MD [facility] DR [place] [address] 03/01/2025 4:15 PM EDT Office Visit Dermatology at [place] [address] [place] [address] Marek Bonilla MD [address] [place] [address] Scheduled Procedures Name Priority Associated Diagnoses Date/Ti me (OSC MSURG) BONE MARROW BIOPSY AND ASPIRATION; DIAGNOSTIC (WRVU 1.44) Anemia, in pt with longstanding neutropenia 05/29/2024 2:00 PM EDT documented as of this encounter Visit Diagnoses Not on filedocumented in this encounter Care Teams Specifications Writer Relationship Specialty Start Date End Date Magdalena Acosta MD [address] [place] [address] PCP - General Family Medicine 02/05/23 documented as of this encounter
--- OUTSIDE RECORDS SUMMARY | 2024-05-18 14:05 | XMS_ITS | Encounter Summary ---
Author Organization [facility] [place] [address] Care Team Providers Care Neurologist Name Role Phone Magdalena Acosta MD Primary Care Provider [phone] Reason for Referral * Consultation (Routine) - Closed Specialty Diagnoses / Procedures Referred By Contac t Referred To Contact Rheumatology Diagnoses Weakness Kyra Haas MD [facility] [address] [place] [address] [facility] Rheumat[facility] [address] [place] [phone] Referral ID Status Reason Start Date Expiration Date V isits Requested Visits Authorized [id number] Closed Consult, Test & Treat PCP Updated and/or Approved 02/25/2023 02/25/2024 6 6 Encounter Details Date Type Department Care Team (Late st Contact Info) Description 02/25/2023 Transcribe Orders eDH Incoming Referrals [phone] Magdalena Acosta MD [address] [place] [address] Weakness Social History Tobacco Use [...] PM EDT Hospital Encounter Outpatient [place] [phone] Markel Borjas MD [facility] DR HEMAT[place]Y [place] [address] 05/29/2024 2:00 PM EDT - 05/29/2024 2:43 PM EDT Surgery Outpatient [place] [address] Markel Borjas MD [facility] DR H[place]AT[place] [address] (OSC MSURG) BONE MARROW BIOPSY AND ASPIRATION; DIAGNOSTIC (WRVU 1.44) 06/23/2024 2:00 PM EST Office Visit [place]ematology [place] [address] Markel Borjas MD [facility] DR HEMAT[place] [address] 03/01/2025 4:15 PM EDT Office Visit Dermatology at [place] [address] [place] [address] Marek Bonilla MD [address] [place] [address] Scheduled Procedures Name Priority Associated Diagnoses Date/Ti [...] fatigue documented in this encounter Care Teams Neurologist Relationship Specialty Start Date End Date Magdalena Acosta MD [address] [place] [address] PCP - General Family Medicine 02/05/23 documented as of this encounter
--- OUTSIDE RECORDS SUMMARY | 2024-05-18 14:05 | XMS_ITS | Encounter Summary ---
Author Organization [facility] [place] [address] Care Team Providers Care Maintenance Advisor Name Role Phone Magdalena Acosta MD Primary Care Provider [phone] Encounter Details Date Type Department Care Team [...] PM EDT Hospital Encounter [place] [address] Markel Borjas MD [facility] DR HEMATOLOGY [place] [address] 05/29/2024 2:00 PM EDT - 05/29/2024 2:43 PM EDT Surgery [place] [address] Markel Borjas MD [facility] DR HEMATOLOGY [place] [address] (OSC MSURG) BONE MARROW BIOPSY AND ASPIRATION; DIAGNOSTIC (WRVU 1.44) 06/23/2024 2:00 PM EST Office Visit Hematology [place] [address] Markel Borjas MD [facility] DR HEMATOLOGY [place] [address] 03/01/2025 4:15 PM EDT Office Visit Dermatology at [place] [address] [place] [address] Marek Bonilla MD [address] [place] [address] Scheduled Procedures Name Priority Associated Diagnoses Date/Ti me (OSC MSURG) BONE MARROW BIOPSY AND ASPIRATION; DIAGNOSTIC (WRVU 1.44) Anemia, in pt with longstanding neutropenia 05/29/2024 2:00 PM EDT documented as of this encounter Visit Diagnoses Not on filedocumented in this encounter Care Teams Maintenance Advisor Relationship Specialty Start Date End Date Magdalena Acosta MD [address] [place] [address] PCP - General Family Medicine 02/05/23 documented as of this encounter
--- OUTSIDE RECORDS SUMMARY | 2024-05-18 14:05 | XMS_ITS | Encounter Summary ---
Author Organization [facility] Address [facility] [place] [address] Care Team Providers Care Marine Painter Name Role Phone Deborah Quiroga ANURAG Primary Care Provider [phone] Encounter Details Date Type Department Care Team (Late st Contact Info) Description 01/14/2023 Refill Dermatology at [address] [address] Lupe Connor RN Social History [...] She would like the medication called into [facility] [employer] in [facility]. Discussed with Dr. Bonilla and he has approved refill of the Doxycycline 50 mg take one capsule by mouth daily in the evenings dispense 30 capsules with 2 refills. Patient notified. documented in this encounter Plan of Treatment Upcoming Encounters Date Type Department Care Team (Late st Contact Info) Description 05/29/2024 2:00 PM EDT Hospital Encounter Outpatient [place] [address] Markel Borjas MD [facility] [address] [place] [address] 05/29/2024 2:00 PM EDT - 05/29/2024 2:43 PM EDT Surgery Outpatient [place] [address] Markel Borjas MD [facility] [address] [place] [address] (OSC MSURG) BONE MARROW BIOPSY AND ASPIRATION; DIAGNOSTIC (WRVU 1.44) 06/23/2024 2:00 PM EST Office Visit Hematology [place] [address] Markel Borjas MD [facility] [address] [place] [address] 03/01/2025 4:15 PM EDT Office Visit Dermatology at [place] [address] [place] [address] Marek Bonilla MD [address], [place] [address] Scheduled Procedures Name Priority Associated Diagnoses Date/Ti me (OSC MSURG) BONE MARROW BIOPSY AND ASPIRATION; DIAGNOSTIC (WRVU 1.44) Anemia, in pt with longstanding neutropenia 05/29/2024 2:00 PM EDT documented as of this encounter Visit Diagnoses Not on filedocumented in this encounter Care Teams Marine Painter Relationship Specialty Start Date End Date Deborah Quiroga, DRINKING WATER TECHNICIAN PCP - General Family Medicine 03/24/16 02/04/23 documented as of this encounter
--- OUTSIDE RECORDS SUMMARY | 2024-05-18 14:05 | XMS_ITS | Encounter Summary ---
Author Organization [place] [address] Care Team Providers Care Orbitread Operator Name Role Phone Magdalena Acosta MD Primary Care Provider [phone] Encounter Details Date Type Department Care Team (Late st Contact Info) Description 02/17/2023 2:00 PM EDT Office Visit [place] [address] Alirio Esparza MD Aortic valve stenosis, etiology [...] PM EDT Hospital Encounter [place]patient [place] [address] Markel Borjas MD [facility] [address] HEMATOLOGY [place] [address] 05/29/2024 2:00 PM EDT - 05/29/2024 2:43 PM EDT Surgery [place] [address] Markel Borjas MD [facility] DR HEMATOLOGY [place] [address] (OSC MSURG) BONE MARROW BIOPSY AND ASPIRATION; DIAGNOSTIC (WRVU 1.44) 06/23/2024 2:00 PM EST Office Visit Hematology [place] [address] Markel Borjas MD [facility] DR HEMATOLOGY [place] [address] 03/01/2025 4:15 PM EDT Office Visit Dermatology at [place] [address] [place] [address] Marek Bonilla MD [address], [place] [address] Scheduled Procedures Name Priority Associated Diagnoses Date/Ti me (OSC MSURG) BONE MARROW BIOPSY AND ASPIRATION; DIAGNOSTIC (WRVU 1.44) Anemia, in pt with longstanding neutropenia 05/29/2024 2:00 PM EDT documented as of this encounter Visit Diagnoses Diagnosis Aortic valve stenosis, etiology of cardiac valve disease unspecified documented in this encounter Care Teams Orbitread Operator Relationship Specialty Start Date End Date Magdalena Acosta MD [address] [place] [address] PCP - General Family Medicine 02/05/23 documented as of this encounter
--- OUTSIDE RECORDS SUMMARY | 2024-05-18 14:05 | XMS_ITS | Encounter Summary ---
Author Organization [facility] Address [facility] [place] [address] Care Team Providers Care Supervisor Rice Milling Name Role Phone Magdalena Acosta MD Primary Care Provider [phone] Encounter Details Date Type Department Care Team (Late st Contact Info) Description 03/29/2023 Orders Only Cardiology at [address] [phone] Ranjan Delgado MD [facility] [place] [address] Severe aortic stenosis (Primary Dx) Social History [...] PM EDT Hospital Encounter [place] [address] Markel Borjas MD [facility] HEMATOLOGY [place] [address] 05/29/2024 2:00 PM EDT - 05/29/2024 2:43 PM EDT Surgery [place] [address] Markel Borjas MD [facility] DR HEMATOLOGY [place] [address] (OSC MSURG) BONE MARROW BIOPSY AND ASPIRATION; DIAGNOSTIC (WRVU 1.44) 06/23/2024 2:00 PM EST Office Visit Hematology [place] [address] Markel Borjas MD [facility] DR HEMATOLOGY [place] [address] 03/01/2025 4:15 PM EDT Office Visit Dermatology at [place] [address] [place] [address] Marek Bonilla MD [address], [place] [address] Scheduled Orders Name Type Priority [...] documented in this encounter Care Teams Supervisor Rice Milling Relationship Specialty Start Date End Date Magdalena Acosta MD [address] [place] [address] PCP - General Family Medicine 02/05/23 documented as of this encounter
--- OUTSIDE RECORDS SUMMARY | 2024-05-18 14:05 | XMS_ITS | Encounter Summary ---
Author Organization [facility] [place] [address] Care Team Providers Care Landscaping And Groundskeeping Laborer Name Role Phone Magdalena Acosta MD Primary Care Provider [phone] Encounter Details Date Type Department Care Team (Late st Contact Info) Description 05/08/2023 [place] [phone] Luis Felipe Ott MD [facility] [address] Social History Tobacco Use Types Packs/Day Years [...] 0426 Referring Provider: Nitesh Baltazar Patient Location: [facility] Presenting Symptoms per OSH: 67 year [...] diuresis with IV furosemide 20 x 1 ([id number] at rheumatology appointment), SpO2 85% on RA -> 95% on 2L NC, HR 120s. Examination significant for decreased breath sounds at the bases. Pertinent Diagnostic Findings: CBC - Hgb 10.5 CMP - Cr 1.1 BNP 17675 HsTrop 1358 Lactate 1.6 D-dimer 1183, CTPE pending CXR demonstrated pulmonary vascular congestion US showed bilateral b lines Bedside echo reportedly similar to prior TTE for LV function OSH Interventions: ASA 324 Heparin gtt Plan: Transfer to [facility] Above recommendations/plans are based on my conversation with the referring provider. I have not personally interviewed or examined this patient. Luis Felipe Ott MD Retort Engineer Received a call from provider emergently [...] those things remain stable. Nico Segura, PGY-6 Retort Engineer [id number] documented in this encounter Plan of Treatment Upcoming Encounters Date Type Department Care Team (Late st Contact Info) Description 05/29/2024 2:00 PM EDT Hospital Encounter Outpatient [place] [address] Markel Borjas MD [facility] DR [place] [address] 05/29/2024 2:00 PM EDT - 05/29/2024 2:43 PM EDT Surgery Outpatient [place] [address] Markel Borjas MD [facility] [address] [place] [address] (OSC MSURG) BONE MARROW BIOPSY AND ASPIRATION; DIAGNOSTIC (WRVU 1.44) 06/23/2024 2:00 PM EST Office Visit [place]ematology [place] [address] Markel Borjas MD [facility] [address] [place] [address] 03/01/2025 4:15 PM EDT Office Visit Dermatology at [place] [address] [place] [address] Marek Bonilla MD [address] [place] [address] Scheduled Procedures Name Priority Associated Diagnoses Date/Ti me (OSC MSURG) BONE MARROW BIOPSY AND ASPIRATION; DIAGNOSTIC (WRVU 1.44) Anemia, in pt with longstanding neutropenia 05/29/2024 2:00 PM EDT documented as of this encounter Visit Diagnoses Not on filedocumented in this encounter Care Teams Landscaping And Groundskeeping Laborer Relationship Specialty Start Date End Date Magdalena Acosta MD [address] [place] [address] PCP - General Family Medicine 02/05/23 documented as of this encounter
--- OUTSIDE RECORDS SUMMARY | 2024-05-18 14:05 | XMS_ITS | Encounter Summary ---
[place] [address] Care Team Providers Care Natural Gas Plant Supervisor Name Role Phone Magdalena Acosta MD Primary Care Provider [phone] Reason for Visit * Reason Comments Annual Exam Encounter Details Date Type Department Care Team (Late st Contact Info) Description 02/05/2023 2:30 PM EDT Office Visit Dermatology at [address] [address] Marek Bonilla MD [address] [facility] [address] [place] [address] Rosacea; Ocular rosacea; Nevus Social History Tobacco [...] cutaneous and ocular 2. Previously told by artificial cherry maker that she had corneal tears from [...] PM EDT Hospital Encounter Outpatient [place] [address] Markel Borjas MD [facility] DR HEMATOLOGY [place] [address] 05/29/2024 2:00 PM EDT - 05/29/2024 2:43 PM EDT Surgery Outpatient [place] [address] Markel Borjas MD [facility] DR HEMATOLOGY [place] [address] (OSC MSURG) BONE MARROW BIOPSY AND ASPIRATION; DIAGNOSTIC (WRVU 1.44) 06/23/2024 2:00 PM EST Office Visit Hematology [place] [address] Markel Borjas MD [facility] DR HEMATOLOGY [place] [address] 03/01/2025 4:15 PM EDT Office Visit Dermatology at [place] [address] [place] [address] Marek Bonilla MD [address], [place] [address] Scheduled Procedures Name Priority Associated Diagnoses Date/Ti me (OSC MSURG) BONE MARROW BIOPSY AND ASPIRATION; DIAGNOSTIC (WRVU 1.44) Anemia, in pt with longstanding neutropenia 05/29/2024 2:00 PM EDT documented as of this encounter Visit Diagnoses Diagnosis Rosacea Ocular rosacea Rosacea Nevus Benign neoplasm of skin, site unspecified documented in this encounter Care Teams Natural Gas Plant Supervisor Relationship Specialty Start Date End Date Magdalena Acosta MD [address] [place] [address] PCP - General Family Medicine 02/05/23 documented as of this encounter
--- OUTSIDE RECORDS SUMMARY | 2024-05-18 14:05 | XMS_ITS | Encounter Summary ---
[place] [address] Care Team Providers Care Employer Relations Representative Name Role Phone Magdalena Acosta MD Primary Care Provider [phone] Encounter Details Date Type Department Care Team [...] EDT Hospital Encounter Outpatient [place] [address] Markel Borjas MD [facility] DR [place] [address] 05/29/2024 2:00 PM EDT - 05/29/2024 2:43 PM EDT Surgery Outpatient [place] [address] Markel Borjas MD [facility] DR [place] [address] (OSC MSURG) BONE MARROW BIOPSY AND ASPIRATION; DIAGNOSTIC (WRVU 1.44) 06/23/2024 2:00 PM EST Office Visit Hematology [place] [address] Markel Borjas MD [facility] DR [place] [address] 03/01/2025 4:15 PM EDT Office Visit Dermatology at [place] [address] [place] [address] Marek Bonilla MD [address], [place] [address] Scheduled Procedures Name Priority Associated Diagnoses Date/Ti me (OSC MSURG) BONE MARROW BIOPSY AND ASPIRATION; DIAGNOSTIC (WRVU 1.44) Anemia, in pt with longstanding neutropenia 05/29/2024 2:00 PM EDT documented as of this encounter Visit Diagnoses Not on filedocumented in this encounter Care Teams Employer Relations Representative Relationship Specialty Start Date End Date Magdalena Acosta MD [address] [place] [address] PCP - General Family Medicine 02/05/23 documented as of this encounter
--- OUTSIDE RECORDS SUMMARY | 2024-05-18 14:05 | XMS_ITS | Encounter Summary ---
[place] [address] Care Team Providers Care Children'S Attendant Name Role Phone Magdalena Acosta MD Primary Care Provider [phone] Reason for Visit * Reason Comments Skin Lesion Encounter Details Date Type Department Care Team (Late st Contact Info) Description 04/20/2023 10:00 AM EDT Office Visit Dermatology at [address] [address] Marek Bonilla MD [address] [facility], [place] [address] Seborrheic keratosis Social History Tobacco Use Types [...] cutaneous and ocular 3. Previously told by personnel security assistant that she had corneal tears from [...] EDT Hospital Encounter Outpatient [place] [address] Markel Borjas MD [facility] [address] [place] [address] 05/29/2024 2:00 PM EDT - 05/29/2024 2:43 PM EDT Surgery Outpatient [place] [address] Markel Borjas MD [facility] [address] [place] [address] (OSC MSURG) BONE MARROW BIOPSY AND ASPIRATION; DIAGNOSTIC (WRVU 1.44) 06/23/2024 2:00 PM EST Office Visit Hematology [place] [address] Markel Borjas MD [facility] DR [place] [address] 03/01/2025 4:15 PM EDT Office Visit Dermatology at [address] [address] Marek Bonilla MD [address] [place] [address] RD, [place] [address] Scheduled Procedures Name Priority Associated Diagnoses Date/Ti me (OSC MSURG) BONE MARROW BIOPSY AND ASPIRATION; DIAGNOSTIC (WRVU 1.44) Anemia, in pt with longstanding neutropenia 05/29/2024 2:00 PM EDT documented as of this encounter Visit Diagnoses Diagnosis Seborrheic keratosis Other seborrheic keratosis documented in this encounter Care Teams Children'S Attendant Relationship Specialty Start Date End Date Magdalena Acosta MD [address] [place] [address] PCP - General Family Medicine 02/05/23 documented as of this encounter
--- OUTSIDE RECORDS SUMMARY | 2024-05-18 14:06 | XMS_ITS | Encounter Summary ---
Author Organization [facility] [place] [address] Care Team Providers Care Conservation Or Heritage Architect Name Role Phone Deborah Quiroga ANURAG Primary Care Provider [phone] Encounter Details Date Type Department Care Team (Late st Contact Info) Description 12/04/2016 External Results [place]ematology [place] [address] Teresa Dodson RN Social History Tobacco Use [...] PM EDT Hospital Encounter Outpatient [place] [address] Markel Borjas MD [facility] [place] [address] 05/29/2024 2:00 PM EDT - 05/29/2024 2:43 PM EDT Surgery Outpatient [place] [address] Markel Borjas MD [facility] HEMATOLOGY AND ONCOLOGY [place], [place] [address] (OSC MSURG) BONE MARROW BIOPSY AND ASPIRATION; DIAGNOSTIC (WRVU 1.44) 06/23/2024 2:00 PM EST Office Visit [place]ology [place] [address] Markel Borjas MD [facility] DR [place] [address] 03/01/2025 4:15 PM EDT Office Visit Dermatology at [place] [address] [place] [address] Marek Bonilla MD [address], [place] [address] Scheduled Procedures Name Priority Associated Diagnoses Date/Ti [...] panel (non-fasting) (12/03/2016 11:35 AM EDT) Glucose 85([facility]house Receiver [facility]) Blood Urea Nitrogen 11([facility]) Creatinine 0.93(Exte rnal Lab) Sodium 140(Exter nal Lab) Potassium 4.2(Exter nal Lab) Chloride 104(Exter nal Lab) Calcium 10.0(Exte rnal Lab) Protein, Total 8.1(Exter nal Lab) Albumin 3.5(Exter nal Lab) Bilirubin, Total 0.25(Exte rnal Lab) Alkaline Phosphatase 96([facility] Receiver [facility]) Aspartate Aminotransferase 18([facility]) Alanine Aminotransferase 21([facility]house Receiver al [facility]) Blood specimen (specimen) 12/03/2016 11:35 AM EDT Historical Provider CHEMISTRY ORDERAB LES * (ABNORMAL) CBC (with Diff) (12/03/2016 11:35 AM EDT) White Blood Cell 1.61(EXTER NAL/ABN) 4.4 - 10.8 Hemoglobin 13.0(Exter nal Lab) Hematocrit 39.8(Exter nal Lab) Platelet 248([facility] Receiver [facility]) Neutrophil Absolute (ANC) - Automated 0.5(DENTURE WAXER AL/ABN) Blood specimen (specimen) 12/03/2016 11:35 AM EDT Historical Provider HEMATOLOGY ORDERA BLES documented in this encounter Visit Diagnoses Not on filedocumented in this encounter Care Teams Conservation Or Heritage Architect Relationship Specialty Start Date End Date Deborah Quiroga, NEONATAL NURSE PCP - General Family Medicine 03/24/16 02/04/23 documented as of this encounter
--- OUTSIDE RECORDS SUMMARY | 2024-05-18 14:06 | XMS_ITS | Encounter Summary ---
Author Organization [facility] [place] [address] Care Team Providers Care Managing Cognitive Engineer Name Role Phone Deborah Quiroga ANURAG Primary Care Provider [phone] Encounter Details Date Type Department Care Team (Late st Contact Info) Description 06/18/2017 External Results Hematology [place] [address] Alexandrea Greenwood RN Neutropenia, unspecified type Social [...] Hospital Encounter [place] [address] Markel Borjas MD [facility] DR [place] [address] 05/29/2024 2:00 PM EDT - 05/29/2024 2:43 PM EDT Surgery [place] [address] Markel Borjas MD [facility] [address] [place] [address] (OSC MSURG) BONE MARROW BIOPSY AND ASPIRATION; DIAGNOSTIC (WRVU 1.44) 06/23/2024 2:00 PM EST Office Visit Hematology [place] [address] Markel Borjas MD [facility] [place] [address] 03/01/2025 4:15 PM EDT Office Visit Dermatology at [place] [address] [facility] [place] [address] Marek Bonilla MD [address], [place] [address] Scheduled Procedures Name Priority Associated Diagnoses Date/Ti [...] HEMATOLOGY ORDERAB LES Performing Organization Address City[facility] Co de Phone Number EXTERNAL LAB documented in this encounter Visit Diagnoses Diagnosis Neutropenia, unspecified type documented in this encounter Care Teams Managing Cognitive Engineer Relationship Specialty Start Date End Date Deborah Quiroga, MARINE FIRER PCP - General Family Medicine 03/24/16 02/04/23 documented as of this encounter
--- OUTSIDE RECORDS SUMMARY | 2024-05-18 14:06 | XMS_ITS | Encounter Summary ---
[place] [address] Care Team Providers Care Metal Mover Name Role Phone Ashley Quirogan Cornelius ANURAG Primary Care Provider [phone] Reason for Visit * Reason Onset Date Comments Results 12/03/2016 Encounter Details Date Type Department Care Team (Late st Contact Info) Description 12/03/2016 Telephone Hematology [place] [address] Yudith Valentine RN Results Social [...] EDT RN received call from Maddy at [facility] reporting critical WBC at 1.61, and ANC of 0.5. She will fax the full results to this office for review appraiser notified DR Borjas of above results documented in this encounter Plan of Treatment Upcoming Encounters Date Type Department Care Team (Late st Contact Info) Description 05/29/2024 2:00 PM EDT Hospital Encounter [place]patient [place] [address] Markel Borjas MD [facility] DR HEMATOLOGY [place] [address] 05/29/2024 2:00 PM EDT - 05/29/2024 2:43 PM EDT Surgery Outpatient [place] [address] Markel Borjas MD [facility] DR HEMATOLOGY [place] [address] (OSC MSURG) BONE MARROW BIOPSY AND ASPIRATION; DIAGNOSTIC (WRVU 1.44) 06/23/2024 2:00 PM EST Office Visit [place]ematology [place] [address] Markel Borjas MD [facility] DR HEMATOLOGY [place] [address] 03/01/2025 4:15 PM EDT Office Visit Dermatology at [place] [address] [facility] [place] [address] Marek Bonilla MD [address], [place] [address] Scheduled Procedures Name Priority Associated Diagnoses Date/Ti me (OSC MSURG) BONE MARROW BIOPSY AND ASPIRATION; DIAGNOSTIC (WRVU 1.44) Anemia, in pt with longstanding neutropenia 05/29/2024 2:00 PM EDT documented as of this encounter Visit Diagnoses Not on filedocumented in this encounter Care Teams Metal Mover Relationship Specialty Start Date End Date Deborah Quiroga APRN PCP - General Family Medicine 03/24/16 02/04/23 documented as of this encounter
--- OUTSIDE RECORDS SUMMARY | 2024-05-18 14:06 | XMS_ITS | Encounter Summary ---
Author Organization [facility] Address [facility] [place] [address] Care Team Providers Care Iuss Acoustic Analyst Name Role Phone Deborah Quiroga APRN Primary Care Provider [phone] Encounter Details Date Type Department Care Team (Late st Contact Info) Description 06/18/2017 11:00 AM EST Office Visit Hematology [place] [address] Markel Borjas MD [facility] [address] [place] [address] Neutropenia, unspecified type Social History Tobacco Use [...] 11:00 AM EST Hematology Outpatient Clinic [facility] Hematology Outpatient Consult Note CC: [...] TOUCH PREP, CLOT SECTION, CORE ??BIOPSY); [OSR# [id number], COLLECTED 06/23/2016, 19 SLIDES]: ?1. ??Normocellular marrow [...] a clonal lymphoproliferative or myeloproliferative disorder (OSR# [id number]) Chromosome analysis on the marrow aspirate revealed [...] working the same job and participating in [employer] patients. Past Medical/Surgical History: 1. Leukopenia -element of neutropenia, as noted above 2. Aortic Stenosis -severe -AVR surgery 3. Hypercholesterolemia 4. Depression 5. Hypertension 6. 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 Extremities: No edema. Labs: Hgb= 13 Ewnr=324 ANC= 0.6 Imaging As above - reviewed [...] PM EDT Hospital Encounter Outpatient [place] [phone] Markel Borjas MD [facility] [address] [place] [address] 05/29/2024 2:00 PM EDT - 05/29/2024 2:43 PM EDT Surgery Outpatient [place] [phone] Markel Borjas MD [facility] [address] [place] [address] (OSC MSURG) BONE MARROW BIOPSY AND ASPIRATION; DIAGNOSTIC (WRVU 1.44) 06/23/2024 2:00 PM EST Office Visit Hematology [place] [address] Markel Borjas MD [facility] [address] [place] [address] 03/01/2025 4:15 PM EDT Office Visit Dermatology at [place] [address] [place] [address] Marek Bonilla MD [address] DERMATOLOGY [place], [place] [id number] Scheduled Procedures Name Priority Associated Diagnoses Date/Ti me (OSC MSURG) BONE MARROW BIOPSY AND ASPIRATION; DIAGNOSTIC (WRVU 1.44) Anemia, in pt with longstanding neutropenia 05/29/2024 2:00 PM EDT documented as of this encounter Visit Diagnoses Diagnosis Neutropenia, unspecified type documented in this encounter Care Teams Iuss Acoustic Analyst Relationship Specialty Start Date End Date Deborah Quiroga APRN PCP - General Family Medicine 03/24/16 02/04/23 documented as of this encounter
--- OUTSIDE RECORDS SUMMARY | 2024-05-18 14:06 | XMS_ITS | Encounter Summary ---
Author Organization [facility] [place] [address] Care Team Providers Care Silo Worker Name Role Phone Junaid, Deborah Shields APRN Primary Care Provider [phone] Encounter Details Date Type Department Care Team [...] PM EDT Hospital Encounter [place]patient [place] [phone] Markel Borjas MD [facility] DR HEMATOLOGY [place] [address] 05/29/2024 2:00 PM EDT - 05/29/2024 2:43 PM EDT Surgery [place]patient [place] [address] Markel Borjas MD [facility] DR HEMATOLOGY [place] [address] (OSC MSURG) BONE MARROW BIOPSY AND ASPIRATION; DIAGNOSTIC (WRVU 1.44) 06/23/2024 2:00 PM EST Office Visit Hematology [place] [address] Markel Borjas MD [facility] DR HEMATOLOGY [place] [address] 03/01/2025 4:15 PM EDT Office Visit Dermatology at [place] [address] [place] [address] Marek Bonilla MD [address] [place] [address] Scheduled Procedures Name Priority Associated Diagnoses Date/Ti me (OSC MSURG) BONE MARROW BIOPSY AND ASPIRATION; DIAGNOSTIC (WRVU 1.44) Anemia, in pt with longstanding neutropenia 05/29/2024 2:00 PM EDT documented as of this encounter Visit Diagnoses Not on filedocumented in this encounter Care Teams Silo Worker Relationship Specialty Start Date End Date Deborah Quiroga, RECORD LABEL INTERN PCP - General Family Medicine 03/24/16 02/04/23 documented as of this encounter
--- OUTSIDE RECORDS SUMMARY | 2024-05-18 14:06 | XMS_ITS | Encounter Summary ---
Author Organization [facility] [place] [address] Care Team Providers Care Company Truck Driver Name Role Phone Deborah Quiroga ANURAG Primary Care Provider [phone] Encounter Details Date Type Department Care Team (Late st Contact Info) Description 07/21/2017 Orders Only Hematology [place] [phone] Alexandrea Greenwood RN Other neutropenia Social History [...] PM EDT Hospital Encounter Outpatient [place] [phone] Markel Borjas MD [facility] HEMATOLOGY [place] [address] 05/29/2024 2:00 PM EDT - 05/29/2024 2:43 PM EDT Surgery Outpatient [place] [phone] Markel Borjas MD [facility] DR HEMATOLOGY [place] [address] (OSC MSURG) BONE MARROW BIOPSY AND ASPIRATION; DIAGNOSTIC (WRVU 1.44) 06/23/2024 2:00 PM EST Office Visit Hematology and Oncology at [facility] [place] [address] Markel Borjas MD [facility] DR HEMATOLOGY [place] [address] 03/01/2025 4:15 PM EDT Office Visit Dermatology at [place] [address] [place] [phone] Marek Bonilla MD [address] [place] [address] Scheduled Procedures Name Priority Associated Diagnoses Date/Ti me (OSC MSURG) BONE MARROW BIOPSY AND ASPIRATION; DIAGNOSTIC (WRVU 1.44) Anemia, in pt with longstanding neutropenia 05/29/2024 2:00 PM EDT documented as of this encounter Visit Diagnoses Diagnosis Other neutropenia documented in this encounter Care Teams Company Truck Driver Relationship Specialty Start Date End Date Deborah Quiroga APRN PCP - General Family Medicine 03/24/16 02/04/23 documented as of this encounter
--- OUTSIDE RECORDS SUMMARY | 2024-05-18 14:06 | XMS_ITS | Encounter Summary ---
Author Organization [facility] Address [facility] [place] [address] Care Team Providers Care Bias Machine Operator Name Role Phone Deborah Quiroga APRN Primary Care Provider [phone] Encounter Details Date Type Department Care Team (Late st Contact Info) Description 03/01/2020 11:30 AM EDT Office Visit H[place]ology [place] [phone] Patrick Borjas MD [facility] [address] [place] [address] Neutropenia, unspecified type Social History Tobacco Use [...] 03/01/2020 11:30 AM EDT Hematology Outpatient Clinic [facility] Hematology Outpatient Consult Note CC: 60 [...] TOUCH PREP, CLOT SECTION, CORE ??BIOPSY); [OSR# [id number], COLLECTED 06/23/2016, 19 SLIDES]: ?1. 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 Extremities: No edema. Labs: Hgb= 12.4 Yjwx=000 ANC= 2.5 Imaging As above - reviewed [...] PM EDT Hospital Encounter [place] [address] Patrick Borjas MD [facility] [address] [place] [address] 05/29/2024 2:00 PM EDT - 05/29/2024 2:43 PM EDT Surgery [place] [address] Patrick Borjas MD [facility] [address] [place] [address] (OSC MSURG) BONE MARROW BIOPSY AND ASPIRATION; DIAGNOSTIC (WRVU 1.44) 06/23/2024 2:00 PM EST Office Visit [place]ematology [place] [address] Patrick Borjas MD [facility] [address] [place] [address] 03/01/2025 4:15 PM EDT Office Visit Dermatology at [place] [address] [place] [address] Marek Bonilla MD [address] [place] [address] Scheduled Procedures Name Priority Associated Diagnoses Date/Ti me ([facility] [place]) BONE MARROW BIOPSY AND ASPIRATION; DIAGNOSTIC (WRVU 1.44) Anemia, in pt with longstanding neutropenia 05/29/2024 2:00 PM EDT documented as of this encounter Visit Diagnoses Diagnosis Neutropenia, unspecified type documented in this encounter Care Teams Bias Machine Operator Relationship Specialty Start Date End Date Deborah Quiroga, ANURAG PCP - General Family Medicine 03/24/16 02/04/23 documented as of this encounter
--- OUTSIDE RECORDS SUMMARY | 2024-05-18 14:06 | XMS_ITS | Encounter Summary ---
Author Organization [facility] Erika lópezsyl[place] [address] Care Team Providers Care Director Peoplesoft Name Role Phone Deborah Quiroga Sylvia OSBORN Primary Care Provider [phone] Encounter Details Date Type Department Care Team (Late st Contact Info) Description 11/11/2020 Refill Dermatology at [address] [address] Taylor Malone, PATTERN GRADER SUPERVISOR Social History Tobacco Use Types Packs/Day [...] PM EDT Hospital Encounter Outpatient [place] [address] Markel Borjas MD [facility] [place] [address] 05/29/2024 2:00 PM EDT - 05/29/2024 2:43 PM EDT Surgery Outpatient [place] [address] Markel Borjas MD [facility] [place] [address] (OSC MSURG) BONE MARROW BIOPSY AND ASPIRATION; DIAGNOSTIC (WRVU 1.44) 06/23/2024 2:00 PM EST Office Visit Hematology [place] [address] Markel Borjas MD [facility] [place] [address] 03/01/2025 4:15 PM EDT Office Visit Dermatology at [place] [address] [place] [address] Marek Bonilla MD [address] [place] [address] Scheduled Procedures Name Priority Associated Diagnoses Date/Ti me (OSC MSURG) BONE MARROW BIOPSY AND ASPIRATION; DIAGNOSTIC (WRVU 1.44) Anemia, in pt with longstanding neutropenia 05/29/2024 2:00 PM EDT documented as of this encounter Visit Diagnoses Not on filedocumented in this encounter Care Teams Director Peoples[employer] Relationship Specialty Start Date End Date Deborah Quiroga APRN PCP - General Family Medicine 03/24/16 02/04/23 documented as of this encounter
--- OUTSIDE RECORDS SUMMARY | 2024-05-18 14:06 | XMS_ITS | Encounter Summary ---
Author Organization [facility] [place] [address] Care Team Providers Care Basketball Player Name Role Phone Junaid Deborah Shields APRN Primary Care Provider [phone] Encounter Details Date Type Department Care Team (Latest Contact Info) Description 11/09/2022 10:37 AM EDT - 11/09/2022 4:53 PM EDT Hospital Encounter [place] [address] Nitesh Escobedo MD [facility] [place] [address] Aortic valve stenosis, etiology of cardiac valve [...] Marek Bonilla MD [facility] New Medications to be Picked Up None For questions regarding this document or issues relating to this hospitalization on the Medical Service, please contact your inpatient physician through the [facility] Social Work Job Titles . Issues afterhours and on weekends will be handled by the Hospitalist staff on-call. * Attachments The following attachments cannot be sent through Care Everywhere. * Coronary Angiogram: Post-op (Sammarinese) * Right Heart Catheterization: Pulmonary Artery Catheterization: Post-op (Sammarinese) documented in this encounter Medications at Time [...] Pre-Procedure H&P Update: Cardiac Catheterization Purnima Thacker [id number] 1955 Chief Complaint: BONILLA HPI: Purnima Thacker [...] [facility] Pager: [phone] documented in this encounter Plan of Treatment Upcoming Encounters Date Type Department Care Team (Late st Contact Info) Description 05/29/2024 2:00 PM EDT Hospital Encounter [place]patient [place] [address] Markel Borjas MD [facility] HEMATOLOGY [place] [address] 05/29/2024 2:00 PM EDT - 05/29/2024 2:43 PM EDT Surgery [place]patient [place] [address] Markel Borjas MD [facility] DR HEMATOLOGY [place] [address] (OSC MSURG) BONE MARROW BIOPSY AND ASPIRATION; DIAGNOSTIC (WRVU 1.44) 06/23/2024 2:00 PM EST Office Visit Hematology [place] [address] Markel Borjas MD [facility] [address] HEMATOLOGY [place] [address] 03/01/2025 4:15 PM EDT Office Visit Dermatology at [place] [address] [facility] [place] [address] Marek Bonilla MD [address], [place] [address] Scheduled Procedures Name Priority Associated Diagnoses Date/Ti [...] & Arts W/Inj & Angio Img S&I ([id number]) 11/09/2022 11:51 AM EDT Aortic valve stenosis, etiology of cardiac valve disease unspecified EKG 12-LEAD Routine 11/09/2022 11:17 AM EDT Aortic valve stenosis, etiology of cardiac valve disease unspecified documented in this encounter Results * CARDIAC CATHETERIZATION (11/09/2022 1:05 PM EDT) Anatomical Region Laterality Modality Other Narrative 11/09/2022 2:01 PM EDT ?[facility] ? Cardiac Catheterization/Intervention Report ? Patient Name: Kirstie, Purnima M. ? Procedure Date: 11/09/2022 ? A #: [id number] ? Primary Physician: Nitesh Escobedo ? Case #: [id number] ? File Name: [id number] ? Catheterization Order Number: [id number] ? [facility] ? Final Report [place], [place] ? Patient Name: ? Purnima M. Kirstie ? ID#: ?[id number] ? : ?1955 ? Procedure Date: ? [...] (Bezet) 457 ms MUSE SYSTEM Calculated P [place] 44 degrees MUSE SYSTEM Calculated R [place] 33 degrees MUSE SYSTEM Calculated T [place] 30 degrees MUSE SYSTEM INTERPRETATION Sinus rhythm Occasional Premature ventricular complexes Otherwise normal ECG When compared with ECG of 21-SEP-2016 12:26, Premature ventricular complexes are now Present [place] interval has decreased Nonspecific T wave abnormality has replaced inverted T waves in Inferior leads I personally reviewed the tracing and edited the fellows interpretation Confirmed by fellow MD Anitha, Carissa ([id number]) on 11/09/2022 6:17:28 PM Confirmed by Elsa [...] MD) documented in this encounter Care Teams Basketball Player Relationship Specialty Start Date End Date Deborah Quiroga, GLOBAL SECURITY ARCHITECT PCP - General Family Medicine 03/24/16 02/04/23 documented as of this encounter
--- OUTSIDE RECORDS SUMMARY | 2024-05-18 14:06 | XMS_ITS | Encounter Summary ---
Author Organization [facility] Erika ló[place] [address] Care Team Providers Care Tank Builder Name Role Phone sAhley Quirogazac Shields APRN Primary Care Provider [phone] Encounter Details Date Type Department Care Team (Late st Contact Info) Description 11/02/2022 Orders [place] [address] Emily Lyons PA [facility] [place] [address] Aortic valve stenosis, etiology of cardiac valve [...] PM EDT Hospital Encounter [place] [address] Markel Borjas MD [facility] [place] [address] 05/29/2024 2:00 PM EDT - 05/29/2024 2:43 PM EDT Surgery [place] [address] Markel Borjas MD [facility] [place] [address] (OSC MSURG) BONE MARROW BIOPSY AND ASPIRATION; DIAGNOSTIC (WRVU 1.44) 06/23/2024 2:00 PM EST Office Visit [place]ology [place] [address] Markel Borjas MD [facility] [place] [address] 03/01/2025 4:15 PM EDT Office Visit Dermatology at [place] [address] [place] [address] Marek Bonilla MD [address], [place] DERMATOLOGY [place], [place] [address] Scheduled Procedures Name Priority Associated Diagnoses Date/Ti me (OSC MSURG) BONE MARROW BIOPSY AND ASPIRATION; DIAGNOSTIC (WRVU 1.44) Anemia, in pt with longstanding neutropenia 05/29/2024 2:00 PM EDT documented as of this encounter Visit Diagnoses Diagnosis Aortic valve stenosis, etiology of cardiac valve disease unspecified documented in this encounter Care Teams Tank Builder Relationship Specialty Start Date End Date Deborah Quiroga APRN PCP - General Family Medicine 03/24/16 02/04/23 documented as of this encounter
--- OUTSIDE RECORDS SUMMARY | 2024-05-18 14:06 | XMS_ITS | Encounter Summary ---
[place] [address] Care Team Providers Care High School Admissions Representative Name Role Phone JunaidDeborah APRN Primary Care Provider [phone] Reason for Visit * Reason Comments Follow-up Encounter Details Date Type Department Care Team (Late st Contact Info) Description 01/10/2021 4:30 PM EDT Office Visit Dermatology at [place] [address] [place] [address] Marek Bonilla MD [address] DERMATOLOGY [place], [place] [address] Rosacea Social History Tobacco Use Types Packs/Day [...] cutaneous and ocular 2. Previously told by white washer piler that she had corneal tears from her [...] 3 refills. Will call this in her [facility] in [place] 3. Continue metronidazole 0.75% gel applying once [...] PM EDT Hospital Encounter [place] [address] Markel Borjas MD [facility] DR HEMATOLOGY [place] [address] 05/29/2024 2:00 PM EDT - 05/29/2024 2:43 PM EDT Surgery [place] [address] Markel Borjas MD [facility] DR HEMATOLOGY [place] [address] (OSC MSURG) BONE MARROW BIOPSY AND ASPIRATION; DIAGNOSTIC (WRVU 1.44) 06/23/2024 2:00 PM EST Office Visit [place] [address] Markel Borjas MD [facility] DR HEMATOLOGY [place] [address] 03/01/2025 4:15 PM EDT Office Visit Dermatology at [place] [address] [place] [address] Marek Bonilla MD [address] [place] [address] Scheduled Procedures Name Priority Associated Diagnoses Date/Ti me (OSC MSURG) BONE MARROW BIOPSY AND ASPIRATION; DIAGNOSTIC (WRVU 1.44) Anemia, in pt with longstanding neutropenia 05/29/2024 2:00 PM EDT documented as of this encounter Visit Diagnoses Diagnosis Rosacea documented in this encounter Care Teams High School Admissions Representative Relationship Specialty Start Date End Date Deborah Quiroga, PIPE LINER PCP - General Family Medicine 03/24/16 02/04/23 documented as of this encounter
--- OUTSIDE RECORDS SUMMARY | 2024-05-18 14:06 | XMS_ITS | Encounter Summary ---
Author Organization [facility] Erika lópezsylvia [place] [address] Care Team Providers Care Show Dog Trainer Name Role Phone Deborah Quiroga ANURAG Primary Care Provider [phone] Encounter Details Date Type Department Care Team (Late st Contact Info) Description 01/09/2022 Refill Dermatology at [address] [address] Lupe Connor RN Social History [...] PM EDT Hospital Encounter [place]patient [place] [address] Markel Borjas MD [facility] [place] [address] 05/29/2024 2:00 PM EDT - 05/29/2024 2:43 PM EDT Surgery [place] [address] Markel Borjas MD [facility] [place] [address] (OSC MSURG) BONE MARROW BIOPSY AND ASPIRATION; DIAGNOSTIC (WRVU 1.44) 06/23/2024 2:00 PM EST Office Visit Hematology [place] [address] Markel Borjas MD [facility] [address] [place] [address] 03/01/2025 4:15 PM EDT Office Visit Dermatology at [place] [address] [place] [address] Marek Bonilla MD [address] [place] [address] Scheduled Procedures Name Priority Associated Diagnoses Date/Ti me (OSC MSURG) BONE MARROW BIOPSY AND ASPIRATION; DIAGNOSTIC (WRVU 1.44) Anemia, in pt with longstanding neutropenia 05/29/2024 2:00 PM EDT documented as of this encounter Visit Diagnoses Not on filedocumented in this encounter Care Teams Show Dog Trainer Relationship Specialty Start Date End Date Deborah Quiroga APRN PCP - General Family Medicine 03/24/16 02/04/23 documented as of this encounter
--- OUTSIDE RECORDS SUMMARY | 2024-05-18 14:06 | XMS_ITS | Encounter Summary ---
Author Organization [facility]ly [facility] Address [facility] [place] [address] Care Team Providers Care Network Systems Operator Name Role Phone Deborah Quiroga APRN Primary Care Provider [phone] Reason for Visit * Reason Comments Follow-up Encounter Details Date Type Department Care Team (Late st Contact Info) Description 07/03/2022 1:30 PM EST Office Visit Hematology [place] [address] Markel Borjas MD [facility] [address] [place] [address] Consuelo Sommer APRN [facility] [address] [place] [address] Chronic idiopathic neutropenia; Dysuria Social History Tobacco [...] 07/03/2022 1:30 PM EST Hematology Outpatient Clinic [facility] Hematology Outpatient Consult Note CC: [...] TOUCH PREP, CLOT SECTION, CORE ??BIOPSY); [OSR# [id number], COLLECTED 06/23/2016, 19 SLIDES]: ?1. ??Normocellular marrow [...] a clonal lymphoproliferative or myeloproliferative disorder (OSR# [id number]) Chromosome analysis on the marrow aspirate revealed [...] at [facility] in Between Digital department Plays competitive scrabble, and goes to [employer] Family History: No known primary marrow disorders [...] intact. Extremities: No edema. Labs: Hgb= 11.7 Miuv=871 ANC= 2.5 Imaging As above - reviewed [...] PM EDT Hospital Encounter Outpatient [place] [address] Markel Borjas MD [facility] [address] [place] [address] 05/29/2024 2:00 PM EDT - 05/29/2024 2:43 PM EDT Surgery Outpatient [place] [address] Markel Borjas MD [facility] [address] [place] [address] (OSC MSURG) BONE MARROW BIOPSY AND ASPIRATION; DIAGNOSTIC (WRVU 1.44) 06/23/2024 2:00 PM EST Office Visit Hematology [place] [address] Markel Borjas MD [facility] [address] [place] [address] 03/01/2025 4:15 PM EDT Office Visit Dermatology at [place] [address] [place] [phone] Marek Bonilla MD [address], [place] [address] Scheduled Procedures Name Priority Associated Diagnoses Date/Ti [...] infection, submit a new specimen. (A) [facility] Clean Catch Urine 07/03/2022 2:00 PM EST 07/03/2022 5:55 PM EST Narrative Resulting Agency Comment Spec In Lab Markel Borjas MD MICROBIOLOGY - GEN ERAL ORDERABLES [facility] [place] [place] [address] * (ABNORMAL) Urinalysis Microscopic Exam (07/03/2022 2:00 PM EST) RBC, Urine 2 0 - 4 /HPF [facility] WBC, Urine 14(H) 0 - 5 /HPF [facility] Bacteria, Urine Occasional (A) None /HPF [facility] Squamous Epithelial Cells Raw Data, Urine 12(H) <=4 /HPF [facility] Hyaline Casts, Urine 2 0 - 2 /LPF [facility] Clean Catch Urine 07/03/2022 2:00 PM EST 07/03/2022 2:29 PM EST Narrative Resulting Agency Comment Spec In Lab Markel Borjas MD URINE ORDERABLES [facility] [place] [address] * (ABNORMAL) Urinalysis with reflex Culture (07/03/2022 2:00 PM EST) Glucose, Urine Dipstick Negative Negative mg/dL [facility] Protein, Urine Dipstick 30(A) Negative mg/dL [facility] Bilirubin, Urine Dipstick Negative Negative mg/dL [facility] Comment: Clinical correlation required for positive Urine Bilirubin results as false positive may occur with some drugs and drug related products. If a false positive is suspected a serum total bilirubin should be considered if clinically indicated. Urobilinogen, Urine Dipstick Normal Normal mg/dL [facility] pH, Urn (dipstick) 5.5 5.0 - 8.0 [facility] Blood, Urine Dipstick Negative Negative mg/dL [facility] Ketone, Urine Dipstick Trace(A) Negative mg/dL [facility] Nitrite, Urine Dipstick Negative Negative [facility] Leukocytes, Urine Dipstick Small(A) Negative [facility] Appearance, Urine Dipstick Clear Clear [facility] Specific [place] Urine Automated 1.022 1.005 - 1.030 [facility] Color, Urine Dipstick Yellow Yellow [facility] Reflex to Culture Yes [facility] Clean Catch Urine 07/03/2022 2:00 PM EST 07/03/2022 2:29 PM EST Narrative Resulting Agency Comment Spec In Lab Markel Borjas MD URINE ORDERABLES Performing Organization Address City/State/[facility] Co de Phone Number [facility] [address] * (ABNORMAL) Comprehensive metabolic panel (non-fasting) (07/03/2022 12:40 PM EST) Glucose 92 65 - 199 mg/dL [facility] Comment:Diabetes: >=200 mg/d L plus symptoms Blood Urea Nitrogen 22(H) 8 - 18 mg/dL [facility] [...] mmol/L [facility] Carbon Dioxide 23 22 - 31 mmol/L [facility] Anion Gap 11 5 - 15 mmol/L [facility] Calcium 10.1 8.5 - 10.5 mg/dL [facility] Protein, Total 7.6 6.1 - 8.0 g/dL [facility] Albumin 4.1 3.2 - 5.2 g/dL [facility] Aspartate Aminotransferase 25 0 - 30 unit/L [facility] Alanine Aminotransferase 14 0 - 30 unit/L [facility] Alkaline Phosphatase 80 35 - 105 unit/L [facility] Bilirubin, Total 0.3 0.2 - 1.3 mg/dL [facility] Est Glomerular Filtration Rate 81 >=60 mL/min/1. 73 m?? [facility] [...] CHEMISTRY ORDERABL ES [facility] [place] [address] documented in this encounter Visit Diagnoses Diagnosis Chronic idiopathic neutropenia Other neutropenia Dysuria documented in this encounter Care Teams Network Systems Operator Relationship Specialty Start Date End Date Deborah Quiroga APRN PCP - General Family Medicine 03/24/16 02/04/23 documented as of this encounter
--- OUTSIDE RECORDS SUMMARY | 2024-05-18 14:06 | XMS_ITS | Encounter Summary ---
Author Organization [facility] Address [facility] [place] [address] Care Team Providers Care Community Resource Officer Name Role Phone Ashlye Quirogazac Shields APRN Primary Care Provider [phone] Reason for Referral * Consultation (Routine) - Closed Specialty Diagnoses / Procedures Referred By Contac t Referred To Contact Neurology Diagnoses Neck pain Popeye Rogers MD [facility] [place] [address] Kyra Haas MD [facility] [address] [address] Referral ID Status Reason Start Date Expiration Date V isits Requested Visits Authorized [id number] Closed Consult, Test & Treat 06/29/2022 06/29/2023 1 1 Reason for Visit * Reason Comments Neck Pain Weak in both arms, p ain and tingling in arms and hands Encounter Details Date Type Department Care Team (Late st Contact Info) Description 06/29/2022 10:20 AM EST Office Visit [place] [address] Popeye Rogers MD [facility] [place] [address] Neck pain Social History Tobacco Use Types [...] have EMG and nerve conduction studies in [place] that showed carpal tunnel syndrome. I do not have a copy of that report. documented in this encounter Plan of Treatment Upcoming Encounters Date Type Department Care Team (Late st Contact Info) Description 05/29/2024 2:00 PM EDT Hospital Encounter [place]patient [place] [address] Markel Borjas MD [facility] [address] [place] [address] 05/29/2024 2:00 PM EDT - 05/29/2024 2:43 PM EDT Surgery [place]patient [place] [address] Markel Borjas MD [facility] [address] [place] [address] (OSC MSURG) BONE MARROW BIOPSY AND ASPIRATION; DIAGNOSTIC (WRVU 1.44) 06/23/2024 2:00 PM EST Office Visit Hematology [place] [address] Markel Borjas MD [facility] [address] [place] [address] 03/01/2025 4:15 PM EDT Office Visit Dermatology at [address] [place] [address] Marek Bonilla MD [address] [place] [address] RD, [place] [address] Scheduled Procedures Name Priority Associated Diagnoses Date/Ti [...] Cervicalgia documented in this encounter Care Teams Community Resource Officer Relationship Specialty Start Date End Date Deborah Quiroga, FORM CARPENTER PCP - General Family Medicine 03/24/16 02/04/23 documented as of this encounter
--- OUTSIDE RECORDS SUMMARY | 2024-05-18 14:06 | XMS_ITS | Encounter Summary ---
Author Organization [facility] [place] [address] Care Team Providers Care Medical Planner Name Role Phone Deborah Quiroga APRN Primary Care Provider [phone] Encounter Details Date Type Department Care Team (Latest Contact Info) Description 07/03/2022 12:28 PM EST - 07/03/2022 1:35 PM EST Hospital Encounter [place] [address] Chronic idiopathic neutropenia Discharge Disposition: Home Social [...] PM EDT Hospital Encounter [place]patient [place] [address] Markel Borjas MD [facility] [address] [place] [address] 05/29/2024 2:00 PM EDT - 05/29/2024 2:43 PM EDT Surgery [place]patient [place] [address] Markel Borjas MD [facility] [place] [address] (OSC MSURG) BONE MARROW BIOPSY AND ASPIRATION; DIAGNOSTIC (WRVU 1.44) 06/23/2024 2:00 PM EST Office Visit [place] [address] Markel Borjas MD [facility] [address] [place] [address] 03/01/2025 4:15 PM EDT Office Visit Dermatology at [place] [address] [place] [address] Marek Bonilla MD [address], [place] [address] Scheduled Procedures Name Priority Associated Diagnoses Date/Ti [...] 12:40 PM EST) Neutrophil % 72.9 % [facility] Neutrophil Absolute 2.61 1.70 - 6.10 x10(3)/mc L [facility] Lymph % 18.4 % [facility] Lymphocytes Abs 0.7(L) 0.9 - 3.2 x10(3)/mc L [facility] Monocyte % 8.4 % [facility] Monocyte Abs 0.3 0.3 - 0.9 x10(3)/mc L [facility] Eos % 0.0 % [facility] Eosinophils Abs 0.0 0.0 - 0.4 x10(3)/mc L [facility] Basophil % 0.3 % [facility] Baso Absolute 0.0 0.0 - 0.1 x10(3)/[facility] Immature Gran % 0.00 % [facility] Comment: Immature granulocytes(IG's)percentage and absolute count will include metamyelocytes, myelocytes, and promyelocytes. Blood smears from CBCs yielding IG's will be scanned manually for concordance. If this scan disagrees with the automated IG or if promyelocytes are noted, a manual differential will be performed. Immature Gran Absolute 0.00 0.00 - 0.04 x10(3)/[facility] [place] [facility] Blood 07/03/2022 12:4 0 PM EST 07/03/2022 1:03 PM EST Narrative Resulting Agency Comment Spec In Lab Markel Borjas MD HEMATOLOGY ORDERAB LES Performing Organization Address City/State/[facility] Co de Phone Number [facility] [place] [place] [address] * (ABNORMAL) Hemogram (07/03/2022 12:40 PM EST) White Blood Cell 3.6(L) 4.0 - 9.5 x10(3)/[facility] Red Blood Cell 3.61(L) 4.00 - 5.21 x10(6)/[facility] Hemoglobin 11.7 11.7 - 15.5 g/dL [facility] Hematocrit 34.5(L) 35.7 - 45.8 % [facility] Mean Cell Volume 95.6(H) 82.6 - 94.4 fL [facility] Mean Cell Hemoglobin 32.4(H) 27.1 - 32.0 pg [facility] Mean Cell Hemoglobin Concentration 33.9 31.7 - 35.0 g/dL [facility] Platelet 171 145 - 357 x10(3)/[facility] RDW Standard Deviation 40.5 37.0 - [...] HEMATOLOGY ORDERAB LES [facility] [place] [address] * (ABNORMAL) Comprehensive metabolic panel (non-fasting) (07/03/2022 [...] CHEMISTRY ORDERABL ES [facility] [place] [address] documented in this encounter Visit Diagnoses Diagnosis Chronic idiopathic neutropenia Other neutropenia documented in this encounter Care Teams Medical Planner Relationship Specialty Start Date End Date Deborah Quiroga APRN PCP - General Family Medicine 03/24/16 02/04/23 documented as of this encounter
--- OUTSIDE RECORDS SUMMARY | 2024-05-18 14:06 | XMS_ITS | Encounter Summary ---
Author Organization [facility] [place] [address] Care Team Providers Care Ibm Websphere Commerce Developer Name Role Phone Winter Quiroga APRN Primary Care Provider [phone] Encounter Details Date Type Department Care Team (Late st Contact Info) Description 06/05/2021 Interpretation Only [address] [address] Winter Quiroga APRN [address] [phone] Social History Tobacco Use Types Packs/Day Years [...] PM EDT Hospital Encounter Outpatient [place] [address] Markel Borjas MD [facility] [address] [place] [address] 05/29/2024 2:00 PM EDT - 05/29/2024 2:43 PM EDT Surgery Outpatient [place] [address] Markel Borjas MD [facility] [address] [place] [address] (OSC MSURG) BONE MARROW BIOPSY AND ASPIRATION; DIAGNOSTIC (WRVU 1.44) 06/23/2024 2:00 PM EST Office Visit [place]ematology [place] [address] Markel Borjas MD [facility] [address] [place] [address] 03/01/2025 4:15 PM EDT Office Visit Dermatology at [place] [address] [place] [address] Marek Bonilla MD [address], [place] [address] Scheduled Procedures Name Priority Associated [...] O RAD ADMITDTTM RAD PT RAD INFO [id number]^E VERETT^WINTER ^E RAD EXAM DESC XDXAC^DEXA SCAN [...] ? Electronically signed by: Rocael Villatoro MD, [facility] ([phone]), at 06/05/2021 12:00 PM Narrative 06/05/2021 12:00 [...] landcare facilitator that requested your imaging first. Winter Quiroga APRN IMGerman DEXA ORDERABLES documented in this encounter Visit Diagnoses Not on filedocumented in this encounter Care Teams Ibm Websphere Commerce Developer Relationship Specialty Start Date End Date Winter Quiroga APRN PCP - General Family Medicine 03/24/16 02/04/23 documented as of this encounter
--- OUTSIDE RECORDS SUMMARY | 2024-05-18 14:06 | XMS_ITS | Encounter Summary ---
Author Organization [facility] [place] [address] Care Team Providers Care Clay Modeler Name Role Phone Junaid Deborah Shields APRN Primary Care Provider [phone] Encounter Details Date Type Department Care Team [...] PM EDT Hospital Encounter [place] [address] Markel Borjas MD [facility] [address] [place] [address] 05/29/2024 2:00 PM EDT - 05/29/2024 2:43 PM EDT Surgery [place] [phone] Markel Borjas MD [facility] [address] [place] [address] (OSC MSURG) BONE MARROW BIOPSY AND ASPIRATION; DIAGNOSTIC (WRVU 1.44) 06/23/2024 2:00 PM EST Office Visit Hematology [place] [address] Markel Borjas MD [facility] [address] [place] [address] 03/01/2025 4:15 PM EDT Office Visit Dermatology at [place] [address] [place] [address] Marek Bonilla MD [address], [address] [place] [address] Scheduled Procedures Name Priority Associated Diagnoses Date/Ti me (OSC MSURG) BONE MARROW BIOPSY AND ASPIRATION; DIAGNOSTIC (WRVU 1.44) Anemia, in pt with longstanding neutropenia 05/29/2024 2:00 PM EDT documented as of this encounter Visit Diagnoses Not on filedocumented in this encounter Care Teams Clay Modeler Relationship Specialty Start Date End Date Deborah Quiroga, BIKE DESIGNER PCP - General Family Medicine 03/24/16 02/04/23 documented as of this encounter
--- OUTSIDE RECORDS SUMMARY | 2024-05-18 14:06 | XMS_ITS | Encounter Summary ---
Author Organization [facility] Address [facility] [place] [address] Care Team Providers Care Bisque Kiln Drawer Name Role Phone Deborah Quiroga APRN Primary Care Provider [phone] Reason for Visit * Consultation (Routine) - Closed Specialty Diagnoses / Procedures Referred By Contkrystle t Referred To Contact Rheumatology Diagnoses Positive FRANCISCO (antinuclear antibody) Arthralgia, unspecified joint Sandy Wu APRN [address] [place] [address] [facility] [address] [place] [address] Referral ID Status Reason Start Date Expiration Date V isits Requested Visits Authorized [id number] Closed Consult, Test & Treat PCP Updated and/or Approved 01/01/2022 01/01/2023 6 6 Encounter Details Date Type Department Care Team (Latest Contact Info) Description 01/20/2022 10:00 AM EDT [place] [address] Raymond Loredo MD [facility] [place] [address] Rosacea; Raynaud's phenomenon without gangrene; [...] over radiocarpal or ulnocarpal joints. 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 SJC/TJC 0/0. Hips: Full motion, [...] be done locally or here at [facility] that the current time is not particularly interested it seems Raymond Loredo MD documented in this encounter Plan of Treatment Upcoming Encounters Date Type Department Care Team (Late st Contact Info) Description 05/29/2024 2:00 PM EDT Hospital Encounter [place] [address] Markel Borjas MD [facility] [place] [address] 05/29/2024 2:00 PM EDT - 05/29/2024 2:43 PM EDT Surgery [place] [address] Markel Borjas MD [facility] [place] [address] (OSC MSURG) BONE MARROW BIOPSY AND ASPIRATION; DIAGNOSTIC (WRVU 1.44) 06/23/2024 2:00 PM EST Office Visit [place] [address] Markel Borjas MD [facility] [address] [place] [address] 03/01/2025 4:15 PM EDT Office Visit Dermatology at [address] [place] [address] Marek Bonilla MD [address] [place] [address] Scheduled Procedures Name Priority Associated Diagnoses Date/Ti [...] syndrome documented in this encounter Care Teams Bisque Kiln Drawer Relationship Specialty Start Date End Date Deborah Quiroga APRN PCP - General Family Medicine 03/24/16 02/04/23 documented as of this encounter
--- OUTSIDE RECORDS SUMMARY | 2024-05-18 14:06 | XMS_ITS | Encounter Summary ---
Author Organization [facility] Address [facility] [place] [address] Care Team Providers Care Rubber Press Operator Name Role Phone Junaid Deborah Shields APRN Primary Care Provider [phone] Reason for Visit * Reason Comments Schedule Office Case Pain right leg Encounter Details Date Type Department Care Team (Late st Contact Info) Description 12/11/2016 9:00 AM EDT Office Visit Hematology [place] [address] Markel Borjas MD [facility] [address] [place] [address] Neutropenia, unspecified type Social History Tobacco Use [...] 9:00 AM EDT Hematology Outpatient Clinic [facility] Hematology Outpatient Consult Note [...] TOUCH PREP, CLOT SECTION, CORE ??BIOPSY); [OSR# [id number], COLLECTED 06/23/2016, 19 SLIDES]: ?1. 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 Extremities: No edema. Labs: Hgb= 13 Hvch=809 ANC= 0.5 Imaging As above - reviewed [...] PM EDT Hospital Encounter Outpatient [place] [address] Markel Borjas MD [facility] [address] [place] [address] 05/29/2024 2:00 PM EDT - 05/29/2024 2:43 PM EDT Surgery [place]patient [place] [address] Markel Borjas MD [facility] [address] [place] [address] (OSC MSURG) BONE MARROW BIOPSY AND ASPIRATION; DIAGNOSTIC (WRVU 1.44) 06/23/2024 2:00 PM EST Office Visit Hematology [place] [address] Markel Borjas MD [facility] [address] [place] [address] 03/01/2025 4:15 PM EDT Office Visit Dermatology at [place] [address] [place] [phone] Marek Bonilla MD [address] [place] [address] Scheduled Procedures Name Priority Associated Diagnoses Date/Ti [...] type documented in this encounter Care Teams Rubber Press Operator Relationship Specialty Start Date End Date Deborah Quiroga, TYPING SECRETARY PCP - General Family Medicine 03/24/16 02/04/23 documented as of this encounter
--- OUTSIDE RECORDS SUMMARY | 2024-05-18 14:06 | XMS_ITS | Encounter Summary ---
[place] [address] Care Team Providers Care Box Icer Name Role Phone Ashley Quirogan Cornelius ANURAG Primary Care Provider [phone] Reason for Visit * Reason Comments Skin Check Encounter Details Date Type Department Care Team (Late st Contact Info) Description 11/11/2020 10:45 AM EDT Office Visit Dermatology at [address] [place] [address] Marek Bonilla MD [address] [facility] [place] [address] DERMATOLOGY [place], [place] [id number] Rosacea; Acrochordon Social History Tobacco Use Types [...] Discussed the possibility of getting this through [facility] or from the [facility] pharmacy if necessary. She has not yet [...] EDT Hospital Encounter [place] [address] Markel Borjas MD [facility] [place] [address] 05/29/2024 2:00 PM EDT - 05/29/2024 2:43 PM EDT Surgery [place]patient [place] [address] Markel Borjas MD [facility] [place] [address] (OSC MSURG) BONE MARROW BIOPSY AND ASPIRATION; DIAGNOSTIC (WRVU 1.44) 06/23/2024 2:00 PM EST Office Visit Hematology [place] [address] Markel Borjas MD [facility] DR [place] [address] 03/01/2025 4:15 PM EDT Office Visit Dermatology at [place] [address] [place] [phone] Marek Bonilla MD [address], [place] [address] Scheduled Procedures Name Priority Associated Diagnoses Date/Ti me (OSC MSURG) BONE MARROW BIOPSY AND ASPIRATION; DIAGNOSTIC (WRVU 1.44) Anemia, in pt with longstanding neutropenia 05/29/2024 2:00 PM EDT documented as of this encounter Visit Diagnoses Diagnosis Rosacea Acrochordon Unspecified hypertrophic and atrophic condition of skin documented in this encounter Care Teams Box Icer Relationship Specialty Start Date End Date Deborah Quiroga APRN PCP - General Family Medicine 03/24/16 02/04/23 documented as of this encounter
--- OUTSIDE RECORDS SUMMARY | 2024-05-18 14:06 | XMS_ITS | Encounter Summary ---
Author Organization [facility] [place] [address] Care Team Providers Care Travelift Operator Name Role Phone Deborah Quiroga APRN Primary Care Provider [phone] Encounter Details Date Type Department Care Team (Late st Contact Info) Description 06/17/2022 Ancillary Procedure Radiology Library at [facility] [place] [address] Deborah Quiroga APRN [address] [place] [phone] Social History Tobacco Use Types Packs/Day [...] PM EDT Hospital Encounter Outpatient [place] [address] Markel Borjas MD [facility] HEMATOLOGY [place] [address] 05/29/2024 2:00 PM EDT - 05/29/2024 2:43 PM EDT Surgery [place]patient [place] [address] Markel Borjas MD [facility] DR [place] [address] (OSC MSURG) BONE MARROW BIOPSY AND ASPIRATION; DIAGNOSTIC (WRVU 1.44) 06/23/2024 2:00 PM EST Office Visit Hematology [place] [address] Markel Borjas MD [facility] DR [place] [address] 03/01/2025 4:15 PM EDT Office Visit Dermatology at [place] [address] [place] [address] Marek Bonilla MD [address], [place] [address] Scheduled Procedures Name Priority Associated Diagnoses Date/Ti [...] MR Spine (06/17/2022 12:00 AM EST) Narrative [facility] - 06/18/2022 11:00 AM EST This exam is auto-finalizing. It's purpose is for storage only. Deborah LLAMAS FILM LIBRARY OR DERABLES [place], [place] documented in this encounter Visit Diagnoses Not on filedocumented in this encounter Care Teams Travelift Operator Relationship Specialty Start Date End Date Deborah Quiroga APRN PCP - General Family Medicine 03/24/16 02/04/23 documented as of this encounter
--- OUTSIDE RECORDS SUMMARY | 2024-05-18 14:06 | XMS_ITS | Encounter Summary ---
Author Organization [facility] [place] [address] Care Team Providers Care Armoured Corps Officer Name Role Phone Winter Quiroga APRN Primary Care Provider [phone] Encounter Details Date Type Department Care Team (Late st Contact Info) Description 06/05/2021 Interpretation Only [address] [address] Winter Quiroga APRN [address] [phone] Social History Tobacco Use Types Packs/Day Years [...] PM EDT Hospital Encounter Outpatient [place] [address] Markel Borjas MD [facility] DR [place] [address] 05/29/2024 2:00 PM EDT - 05/29/2024 2:43 PM EDT Surgery Outpatient [place] [address] Markel Borjas MD [facility] DR [place] [address] (OSC MSURG) BONE MARROW BIOPSY AND ASPIRATION; DIAGNOSTIC (WRVU 1.44) 06/23/2024 2:00 PM EST Office Visit [place]ology [place] [phone] Markel Borjas MD [facility] DR [place] [address] 03/01/2025 4:15 PM EDT Office Visit Dermatology at [place] [address] [place] [address] Marek Bonilla MD [address], [place] [address] Scheduled Procedures Name Priority Associated Diagnoses Date/Ti [...] RAD ADMITDTTM DH RAD PT RAD INFO [id number]^EV ERETT^WINTER^E RAD EXAM DESC MADDSC^SCREEN MAMMO BL [...] occasional caregiver that requested your imaging first. Winter Quiroga STONECUTTER HAND IMG MAMMO ORDERABLE S documented in this encounter Visit Diagnoses Not on filedocumented in this encounter Care Teams Armoured Corps Officer Relationship Specialty Start Date End Date Winter Quiroga APRN PCP - General Family Medicine 03/24/16 02/04/23 documented as of this encounter
--- OUTSIDE RECORDS SUMMARY | 2024-05-18 14:06 | XMS_ITS | Encounter Summary ---
[place] [address] Care Team Providers Care Acquisition Cost Estimator Name Role Phone Deborah Quiroga ANURGA Primary Care Provider [phone] Encounter Details Date Type Department Care Team (Late st Contact Info) Description 02/07/2020 Telephone [place] [phone] Ellen Rios RN Social History Tobacco Use [...] 02/07/2020 12:59 PM EDT Message received from workers compensation legal secretary: Injection/Infusion Referral Services to be provided for pt are: CBC only at [facility]- Pt will go by 02/27 Orders faxed to [phone]). Spoke with pt. She will call [facility] directly to schedule a time that works for her. documented in this encounter Plan of Treatment Upcoming Encounters Date Type Department Care Team (Late st Contact Info) Description 05/29/2024 2:00 PM EDT Hospital Encounter [place]patient [place] [address] Markel Borjas MD [facility] DR HEMATOLOGY [place] [address] 05/29/2024 2:00 PM EDT - 05/29/2024 2:43 PM EDT Surgery [place]patient [place] [address] Markel Borjas MD [facility] DR HEMATOLOGY [place] [address] (OSC MSURG) BONE MARROW BIOPSY AND ASPIRATION; DIAGNOSTIC (WRVU 1.44) 06/23/2024 2:00 PM EST Office Visit [place]ology [place] [address] Markel Borjas MD [facility] DR HEMATOLOGY [place] [address] 03/01/2025 4:15 PM EDT Office Visit Dermatology at [place] [address] [place] [address] Marek Bonilla MD [address], [place] [address] Scheduled Procedures Name Priority Associated Diagnoses Date/Ti me (OSC MSURG) BONE MARROW BIOPSY AND ASPIRATION; DIAGNOSTIC (WRVU 1.44) Anemia, in pt with longstanding neutropenia 05/29/2024 2:00 PM EDT documented as of this encounter Visit Diagnoses Not on filedocumented in this encounter Care Teams Acquisition Cost Estimator Relationship Specialty Start Date End Date Deborah Quiroga APRN PCP - General Family Medicine 03/24/16 02/04/23 documented as of this encounter
--- OUTSIDE RECORDS SUMMARY | 2024-05-18 14:06 | XMS_ITS | Encounter Summary ---
Author Organization [facility] Address [facility] [place] [address] Care Team Providers Care Wine Fermenter Name Role Phone Junaid, Deborah Shields APRN Primary Care Provider [phone] Encounter Details Date Type Department Care Team (Late st Contact Info) Description 03/04/2020 External Results Hematology [place] [phone] TherBhumi villela Social History Tobacco Use Types [...] PM EDT Hospital Encounter [place]patient [place] [address] Markel oBrjas MD [facility] [place] [address] 05/29/2024 2:00 PM EDT - 05/29/2024 2:43 PM EDT Surgery [place] [address] Markel Borjas MD [facility] [place] [address] (OSC MSURG) BONE MARROW BIOPSY AND ASPIRATION; DIAGNOSTIC (WRVU 1.44) 06/23/2024 2:00 PM EST Office Visit Hematology [place] [address] Markel Borjas MD [facility] [address] [place] [address] 03/01/2025 4:15 PM EDT Office Visit Dermatology at [place] [address] [place] [address] Marek Bonilla MD [address], [place] [address] Scheduled Procedures Name Priority Associated Diagnoses Date/Ti [...] on filedocumented in this encounter Care Teams Wine Fermenter Relationship Specialty Start Date End Date Deborah Quiroga, PERSONAL COUNSELOR PCP - General Family Medicine 03/24/16 02/04/23 documented as of this encounter
--- OUTSIDE RECORDS SUMMARY | 2024-05-18 14:06 | XMS_ITS | Encounter Summary ---
Author Organization [facility] Erika lópezsyl[place] [address] Care Team Providers Care Business Writer Name Role Phone Deborah Quiroga Sylvia OSBORN Primary Care Provider [phone] Encounter Details Date Type Department Care Team (Late st Contact Info) Description 01/13/2021 Refill Dermatology at [address] [address] Taylor Malone, PILLAR WORKER Social History Tobacco Use Types Packs/Day Years [...] PM EDT Hospital Encounter Outpatient [place] [address] Markel Borjas MD [facility] [place] [address] 05/29/2024 2:00 PM EDT - 05/29/2024 2:43 PM EDT Surgery [place] [address] Markel Borjas MD [facility] [address] [place] [address] (OSC MSURG) BONE MARROW BIOPSY AND ASPIRATION; DIAGNOSTIC (WRVU 1.44) 06/23/2024 2:00 PM EST Office Visit Hematology [place] [address] Markel Borjas MD [facility] [address] [place] [address] 03/01/2025 4:15 PM EDT Office Visit Dermatology at [place] [address] [place] [address] Marek Bonilla MD [address], [place] [address] Scheduled Procedures Name Priority Associated Diagnoses Date/Ti me (OSC MSURG) BONE MARROW BIOPSY AND ASPIRATION; DIAGNOSTIC (WRVU 1.44) Anemia, in pt with longstanding neutropenia 05/29/2024 2:00 PM EDT documented as of this encounter Visit Diagnoses Not on filedocumented in this encounter Care Teams Business Writer Relationship Specialty Start Date End Date Deborah Quiroga APRN PCP - General Family Medicine 03/24/16 02/04/23 documented as of this encounter
--- OUTSIDE RECORDS SUMMARY | 2024-05-18 14:06 | XMS_ITS | Encounter Summary ---
Author Organization [facility] [place] [address] Care Team Providers Care Apartment Leasing Consultant Name Role Phone Deborah Quiroga APRN Primary Care Provider [phone] Encounter Details Date Type Department Care Team (Late st Contact Info) Description 06/08/2022 Ancillary Procedure Radiology Library at [facility] [address] Deborah Quiroga APRN [address] [place] [phone] Social History Tobacco Use Types Packs/Day [...] PM EDT Hospital Encounter Outpatient [place] [address] Markel Borjas MD [facility] HEMATOLOGY [place] [address] 05/29/2024 2:00 PM EDT - 05/29/2024 2:43 PM EDT Surgery [place]patient [place] [address] Markel Borjas MD [facility] DR [place] [address] (OSC MSURG) BONE MARROW BIOPSY AND ASPIRATION; DIAGNOSTIC (WRVU 1.44) 06/23/2024 2:00 PM EST Office Visit Hematology [place] [address] Markel Borjas MD [facility] DR [place] [address] 03/01/2025 4:15 PM EDT Office Visit Dermatology at [place] [address] [place] [address] Marek Bonilla MD [address], [place] [address] Scheduled Procedures Name Priority Associated Diagnoses Date/Ti [...] DX Spine (06/08/2022 12:00 AM EST) Narrative [facility] - 06/18/2022 10:57 AM EST This exam is auto-finalizing. It's purpose is for storage only. Deborah LLAMAS FILM LIBRARY OR DERABLES [place], [place] documented in this encounter Visit Diagnoses Not on filedocumented in this encounter Care Teams Apartment Leasing Consultant Relationship Specialty Start Date End Date Deborah Quiroga APRN PCP - General Family Medicine 03/24/16 02/04/23 documented as of this encounter
--- OUTSIDE RECORDS SUMMARY | 2024-05-18 14:06 | XMS_ITS | Encounter Summary ---
Author Organization [facility] [place] [address] Care Team Providers Care Supervisor Composing Room Name Role Phone Ashley Quirogazac Shields APRN Primary Care Provider [phone] Encounter Details Date Type Department Care Team (Late st Contact Info) Description 02/06/2020 Orders Only Hematology [place] [address] Markel Borjas MD [facility] DR [place] [address] Neutropenia, unspecified type Social History Tobacco Use [...] PM EDT Hospital Encounter [place]patient [place] [address] Markel Borjas MD [facility] DR [place] [address] 05/29/2024 2:00 PM EDT - 05/29/2024 2:43 PM EDT Surgery Outpatient Surgery Center [facility] [place] [address] Markel Borjas MD [facility] [address] [place] [address] (OSC MSURG) BONE MARROW BIOPSY AND ASPIRATION; DIAGNOSTIC (WRVU 1.44) 06/23/2024 2:00 PM EST Office Visit Hematology [place] [address] Markel Borjas MD [facility] DR [place] [address] 03/01/2025 4:15 PM EDT Office Visit Dermatology at [place] [address] [facility] [address] [place] [address] Marek Bonilla MD [address], [place] [address] Scheduled Procedures Name Priority Associated Diagnoses Date/Ti me (OSC MSURG) BONE MARROW BIOPSY AND ASPIRATION; DIAGNOSTIC (WRVU 1.44) Anemia, in pt with longstanding neutropenia 05/29/2024 2:00 PM EDT documented as of this encounter Visit Diagnoses Diagnosis Neutropenia, unspecified type documented in this encounter Care Teams Supervisor Composing Room Relationship Specialty Start Date End Date Deborah Quiroga APRN PCP - General Family Medicine 03/24/16 02/04/23 documented as of this encounter
--- OUTSIDE RECORDS SUMMARY | 2024-05-18 14:06 | XMS_ITS | Encounter Summary ---
Author Organization [facility] [place] [address] Care Team Providers Care Worm Picker Name Role Phone Winter Quiroga APRN Primary Care Provider [phone] Encounter Details Date Type Department Care Team (Late st Contact Info) Description 06/05/2021 Interpretation Only [address] [address] Winter Quiroga APRN [address] [phone] Social History Tobacco Use Types Packs/Day Years [...] PM EDT Hospital Encounter Outpatient [place] [address] Markel Borjas MD [facility] DR HEMATOLOGY [place] [address] 05/29/2024 2:00 PM EDT - 05/29/2024 2:43 PM EDT Surgery [place] [address] Markel Borjas MD [facility] DR HEMATOLOGY [place] [address] (OSC MSURG) BONE MARROW BIOPSY AND ASPIRATION; DIAGNOSTIC (WRVU 1.44) 06/23/2024 2:00 PM EST Office Visit [place]ematology [place] [address] Markel Borjas MD [facility] DR HEMATOLOGY [place] [address] 03/01/2025 4:15 PM EDT Office Visit Dermatology at [place] [address] [place] [address] Marek Bonilla MD [address], [place] [address] Scheduled Procedures Name Priority Associated Diagnoses Date/Ti [...] RAD ADMITDTTM DH RAD PT RAD INFO [id number]^EVERET T^WINTER^E DH RAD EXAM DESC MADDSCTO^BREAST SCREEN [...] questions please contact the health patient care specialist that requested your imaging first. ? Electronically signed by: Rocael Villatoro MD, [facility] ([phone]), at 06/05/2021 1:27 PM Narrative 06/05/2021 1:27 [...] have questions please contactthe health patient care specialist that requested your imaging first. Electronically signed by: Rocael Villatoro MD, [facility]([phone]), at 06/05/2021 1:27 PM Winter Quiroga APRN IMG MAMMO ORDERABLE S documented in this encounter Visit Diagnoses Not on filedocumented in this encounter Care Teams Worm Picker Relationship Specialty Start Date End Date Winter Quiroga APRN PCP - General Family Medicine 03/24/16 02/04/23 documented as of this encounter
--- OUTSIDE RECORDS SUMMARY | 2024-05-18 14:06 | XMS_ITS | Encounter Summary ---
Author Organization [facility] [place] [address] Care Team Providers Care Anesthesia Tech Name Role Phone Junaid Deborah Shields APRN Primary Care Provider [phone] Encounter Details Date Type Department Care Team [...] PM EDT Hospital Encounter Outpatient [place] [address] Markel Borjas MD [facility] [place] [address] 05/29/2024 2:00 PM EDT - 05/29/2024 2:43 PM EDT Surgery [place]patient [place] [address] Markel Borjas MD [facility] [place] [address] (OSC MSURG) BONE MARROW BIOPSY AND ASPIRATION; DIAGNOSTIC (WRVU 1.44) 06/23/2024 2:00 PM EST Office Visit [place]ology [place] [address] Markel Borjas MD [facility] [place] [address] 03/01/2025 4:15 PM EDT Office Visit Dermatology at [place] [address] [place] [address] Marek Bonilla MD [address], [place] [address] Scheduled Procedures Name Priority Associated Diagnoses Date/Ti me (OSC MSURG) BONE MARROW BIOPSY AND ASPIRATION; DIAGNOSTIC (WRVU 1.44) Anemia, in pt with longstanding neutropenia 05/29/2024 2:00 PM EDT documented as of this encounter Visit Diagnoses Not on filedocumented in this encounter Care Teams Anesthesia Tech Relationship Specialty Start Date End Date Deborah Quiroga, GLASS RIBBON MACHINE OPERATOR PCP - General Family Medicine 03/24/16 02/04/23 documented as of this encounter
--- OUTSIDE RECORDS SUMMARY | 2024-05-18 14:06 | XMS_ITS | Encounter Summary ---
[place] [address] Care Team Providers Care Technical Training Specialist Name Role Phone Ashley Quirogazac Shields APRN Primary Care Provider [phone] Reason for Visit * Reason Comments Annual Exam Encounter Details Date Type Department Care Team (Late st Contact Info) Description 01/09/2022 3:15 PM EDT Office Visit Dermatology at [address] [address] Marek Bonilla MD [address] [facility] A DERMATOLOGY [place], [place] [id number] Rosacea Social History Tobacco Use Types Packs/Day [...] cutaneous and ocular 2. Previously told by rehabilitation services manager that she had corneal tears from [...] refills. We will call this into her [facility] in [place]. Continue metronidazole 0.75% gel applying every [...] PM EDT Hospital Encounter [place] [address] Markel Borjas MD [facility] [place] [address] 05/29/2024 2:00 PM EDT - 05/29/2024 2:43 PM EDT Surgery [place] [address] Markel Borjas MD [facility] [place] [address] (OSC MSURG) BONE MARROW BIOPSY AND ASPIRATION; DIAGNOSTIC (WRVU 1.44) 06/23/2024 2:00 PM EST Office Visit [place]ology [place] [address] Markel Borjas MD [facility] [place] [address] 03/01/2025 4:15 PM EDT Office Visit Dermatology at [place] [address] [place] [address] Marek Bonilla MD [address] [place] Murphy DERMATOLOGY [place], [place] [address] Scheduled Procedures Name Priority Associated Diagnoses Date/Ti me (OSC MSURG) BONE MARROW BIOPSY AND ASPIRATION; DIAGNOSTIC (WRVU 1.44) Anemia, in pt with longstanding neutropenia 05/29/2024 2:00 PM EDT documented as of this encounter Visit Diagnoses Diagnosis Rosacea documented in this encounter Care Teams Technical Training Specialist Relationship Specialty Start Date End Date Deborah Quiroga APRN PCP - General Family Medicine 03/24/16 02/04/23 documented as of this encounter
--- OUTSIDE RECORDS SUMMARY | 2024-05-18 14:06 | XMS_ITS | Encounter Summary ---
Author Organization Formerly [facility], [facility] [place] [address] Care Team Providers Care Application Tester Name Role Phone Deborah Quiroga APRN Primary Care Provider [phone] Encounter Details Date Type Department Care Team (Latest Contact Info) Description 07/03/2022 1:36 PM EST - 07/03/2022 11:59 PM EST Hospital Encounter [place] [address] Discharge Disposition: Home Social History Tobacco Use [...] PM EDT Hospital Encounter [place] [address] Markel Borjas MD [facility] DR HEMATOLOGY [place] [address] 05/29/2024 2:00 PM EDT - 05/29/2024 2:43 PM EDT Surgery [place] [address] Markel Borjas MD [facility] HEMATOLOGY [place] [address] (OSC MSURG) BONE MARROW BIOPSY AND ASPIRATION; DIAGNOSTIC (WRVU 1.44) 06/23/2024 2:00 PM EST Office Visit [place] [address] Markel Borjas MD [facility] DR HEMATOLOGY [place] [address] 03/01/2025 4:15 PM EDT Office Visit Dermatology at [place] [address] [place] [address] Marek Bonilla MD [address], [place] [address] Scheduled Procedures Name Priority Associated Diagnoses Date/Ti [...] Lab Markel Borjas MD CHEMISTRY ORDERABL ES [facility] [place] [address] * Vitamin B12 (07/03/2022 1:59 PM EST) Vitamin B12 449 232 - 1,245 pg/mL [facility] Blood Venous Draw / Unknown 07/03/2022 1:59 PM EST 07/03/2022 2:13 PM EST Narrative Resulting Agency Comment Spec In Lab Markel Borjas MD CHEMISTRY ORDERABL ES [place] [id number] documented in this encounter Visit Diagnoses Not on filedocumented in this encounter Care Teams Application Tester Relationship Specialty Start Date End Date Deborah Quiroga APRN PCP - General Family Medicine 03/24/16 02/04/23 documented as of this encounter
--- OUTSIDE RECORDS SUMMARY | 2024-05-18 14:06 | XMS_ITS | Encounter Summary ---
Author Organization [facility] [place] [address] Care Team Providers Care Flooring Helper Name Role Phone Deborah Quiroga APRN Primary Care Provider [phone] Reason for Referral * Consultation (Routine) - Closed Specialty Diagnoses / Procedures Referred By Crispin maxwell Referred To Contact Neurology Diagnoses Polyneuropathy Deborah Quiroga APRN [address] [place] [address] [facility] Neurology [address] [place] [phone] Referral ID Status Reason Start Date Expiration Date V isits Requested Visits Authorized [id number] Closed Consult, Test & Treat 10/29/2022 10/29/2023 1 1 Encounter Details Date Type Department Care Team (Latest Contact Info) Description 10/29/2022 Transcribe Orders eDH Incoming Referrals [phone] Deborah Quiroga APRN [address] [facility] [address] [place] [address] Polyneuropathy (Primary Dx) Social History [...] PM EDT Hospital Encounter [place] [phone] Markel Borjas MD [facility] [address] [place] [address] 05/29/2024 2:00 PM EDT - 05/29/2024 2:43 PM EDT Surgery [place] [address] Markel Borjas MD [facility] [address] [place] [address] (OSC MSURG) BONE MARROW BIOPSY AND ASPIRATION; DIAGNOSTIC (WRVU 1.44) 06/23/2024 2:00 PM EST Office Visit [place]ematology [place] [address] Markel Borjas MD [facility] [address] [place] [address] 03/01/2025 4:15 PM EDT Office Visit Dermatology at [place] [address] [place] [phone] Marek Bonilla MD [address] [place] [address] Scheduled Procedures Name Priority Associated Diagnoses Date/Ti [...] neuropathy documented in this encounter Care Teams Flooring Helper Relationship Specialty Start Date End Date Deborah Quiroga APRN PCP - General Family Medicine 03/24/16 02/04/23 documented as of this encounter
--- OUTSIDE RECORDS SUMMARY | 2024-05-18 14:06 | XMS_ITS | Encounter Summary ---
[place] [address] Care Team Providers Care Nurses Assistant Name Role Phone Ashley Quirogan Cornelius ANURAG Primary Care Provider [phone] Reason for Visit * Reason Comments Acrochordon Rosacea Encounter Details Date Type Department Care Team (Late st Contact Info) Description 12/05/2020 3:00 PM EDT Office Visit Dermatology at [address] [address] Marek Bonilla MD [address] [facility], [place] [address] Inflamed acrochordon Social History Tobacco Use Types [...] month for repeat check. CC: Deborah Junaid DEBARKER OPERATOR documented in this encounter Plan of Treatment Upcoming Encounters Date Type Department Care Team (Late st Contact Info) Description 05/29/2024 2:00 PM EDT Hospital Encounter [place] [address] Markel Borjas MD [facility] DR [place] [address] 05/29/2024 2:00 PM EDT - 05/29/2024 2:43 PM EDT Surgery [place] [address] Markel Borjas MD [facility] DR [place] [address] (OSC MSURG) BONE MARROW BIOPSY AND ASPIRATION; DIAGNOSTIC (WRVU 1.44) 06/23/2024 2:00 PM EST Office Visit Hematology [place] [address] Markel Borjas MD [facility] DR [place] [address] 03/01/2025 4:15 PM EDT Office Visit Dermatology at [address] [place] [address] Marek Bonilla MD [address] [facility], [place] [address] Scheduled Procedures Name Priority Associated Diagnoses Date/Ti me (OSC MSURG) BONE MARROW BIOPSY AND ASPIRATION; DIAGNOSTIC (WRVU 1.44) Anemia, in pt with longstanding neutropenia 05/29/2024 2:00 PM EDT documented as of this encounter Visit Diagnoses Diagnosis Inflamed acrochordon Unspecified hypertrophic and atrophic condition of skin documented in this encounter Care Teams Nurses Assistant Relationship Specialty Start Date End Date Deborah Quiroga, DEBARKER OPERATOR PCP - General Family Medicine 03/24/16 02/04/23 documented as of this encounter
--- OUTSIDE RECORDS SUMMARY | 2024-05-18 14:06 | XMS_ITS | Encounter Summary ---
[place] [address] Care Team Providers Care Lodge Officer Name Role Phone Deborah Quiroga APRN Primary Care Provider [phone] Reason for Referral * Consultation (Routine) - Closed Specialty Diagnoses / Procedures Referred By Contac t Referred To Contact Rheumatology Diagnoses Positive FRANCISCO (antinuclear antibody) Arthralgia, unspecified joint Sandy Wu APRN [address] [place] [address] [facility] Rheumatology [address] [place] [phone] Referral ID Status Reason Start Date Expiration Date V isits Requested Visits Authorized [id number] Closed Consult, Test & Treat PCP Updated and/or Approved 01/01/2022 01/01/2023 6 6 Encounter Details Date Type Department Care Team (Latest Contact Info) Description 01/01/2022 Transcribe Orders eDH Incoming Referrals [phone] Sandy Wu APRN [address] [place], [place] [id number] Positive FRANCISCO (antinuclear antibody); Arthralgia, unspecified joint [...] PM EDT Hospital Encounter [place] [address] Markel Borjas MD [facility] DR HEMATOLOGY [place] [address] 05/29/2024 2:00 PM EDT - 05/29/2024 2:43 PM EDT Surgery [place] [phone] Markel Borjas MD [facility] DR HEMATOLOGY [place] [address] (OSC MSURG) BONE MARROW BIOPSY AND ASPIRATION; DIAGNOSTIC (WRVU 1.44) 06/23/2024 2:00 PM EST Office Visit Hematology [place] [address] Markel Borjas MD [facility] [place] [address] 03/01/2025 4:15 PM EDT Office Visit Dermatology at [place] [address] [place] [address] Marek Bonilla MD [address], [place] [address] Scheduled Procedures Name Priority Associated [...] joint documented in this encounter Care Teams Lodge Officer Relationship Specialty Start Date End Date Deborah Quiroga, CREMATORIUM OPERATOR PCP - General Family Medicine 03/24/16 02/04/23 documented as of this encounter
--- OUTSIDE RECORDS SUMMARY | 2024-05-18 14:06 | XMS_ITS | Encounter Summary ---
Author Organization [facility] Address [facility] [place] [address] Care Team Providers Care Lab Associate Name Role Phone Junaid Deborah Shields APRN Primary Care Provider [phone] Encounter Details Date Type Department Care Team (Latest Contact Info) Description 06/22/2022 10:00 AM EST Office [place] [phone] Raymond Loredo MD [facility] [place] [address] Raynaud's phenomenon without gangrene; Positive FRANCISCO (antinuclear [...] be done locally or here at [facility] that the current time is not particularly [...] for surgery by Dr. Rogers here at [facility]. In addition to painful dysesthesias in her [...] over radiocarpal or ulnocarpal joints. Hands: Normal smelter operator and claw. SJC/TJC 0/0. Knees: Decreased [...] PM EDT Hospital Encounter Outpatient [place] [address] Markel Borjas MD [facility] [place] [address] 05/29/2024 2:00 PM EDT - 05/29/2024 2:43 PM EDT Surgery Outpatient [place] [address] Markel Borjas MD [facility] [place] [address] (OSC MSURG) BONE MARROW BIOPSY AND ASPIRATION; DIAGNOSTIC (WRVU 1.44) 06/23/2024 2:00 PM EST Office Visit [place]ematology [place] [address] Markel Borjas MD [facility] [place] [address] 03/01/2025 4:15 PM EDT Office Visit Dermatology at [place] [address] [facility] [address] [place] [address] Marek Bonilla MD [address] [facility], [place] [address] Scheduled Procedures Name Priority Associated Diagnoses Date/Ti [...] radiculopathy documented in this encounter Care Teams Lab Associate Relationship Specialty Start Date End Date Deborah Qiuroga, BOX STAPLER PCP - General Family Medicine 03/24/16 02/04/23 documented as of this encounter
--- OUTSIDE RECORDS SUMMARY | 2024-05-18 14:06 | XMS_ITS | Encounter Summary ---
[place] [address] Care Team Providers Care Bushing Press Operator Name Role Phone Ahsley Quirogan Cornelius ANURAG Primary Care Provider [phone] Reason for Visit * Reason Onset Date Comments Medical Care Coordination 07/27/2017 Encounter Details Date Type Department Care Team (Late st Contact Info) Description 07/27/2017 Telephone Hematology [place] [address] Alexandrea Greenwood RN Medical Care Coordination Social [...] 07/27/2017 12:25 PM EST Message received from medical assistant secretary: Injection/Infusion Referral Call placed to [facility] @ [phone] Spoke w/ REAR LOAD TRUCK DRIVER Services to be provided for pt are: CBC/CMP DONE Q6 MONTHS X2 STARTING NOVEMBER 2017 TECH confirmed they would provide services to pt - I CALLED PT, LM. Pt orders faxed to [phone] documented in this encounter Plan of Treatment Upcoming Encounters Date Type Department Care Team (Late st Contact Info) Description 05/29/2024 2:00 PM EDT Hospital Encounter [place] [address] Markel Borjas MD [facility] DR HEMATOLOGY [place] [address] 05/29/2024 2:00 PM EDT - 05/29/2024 2:43 PM EDT Surgery [place] [address] Markel Borjas MD [facility] DR HEMATOLOGY [place] [address] (OSC MSURG) BONE MARROW BIOPSY AND ASPIRATION; DIAGNOSTIC (WRVU 1.44) 06/23/2024 2:00 PM EST Office Visit Hematology [place] [address] Markel Borjas MD [facility] DR HEMATOLOGY [place] [address] 03/01/2025 4:15 PM EDT Office Visit Dermatology at [address] [phone] Marek Bonilla MD [address] [place] [address] RD, [place] [address] Scheduled Procedures Name Priority Associated Diagnoses Date/Ti me (OSC MSURG) BONE MARROW BIOPSY AND ASPIRATION; DIAGNOSTIC (WRVU 1.44) Anemia, in pt with longstanding neutropenia 05/29/2024 2:00 PM EDT documented as of this encounter Visit Diagnoses Not on filedocumented in this encounter Care Teams Bushing Press Operator Relationship Specialty Start Date End Date Deborah Quiroga APRN PCP - General Family Medicine 03/24/16 02/04/23 documented as of this encounter
--- OUTSIDE RECORDS SUMMARY | 2024-05-18 14:07 | XMS_ITS | Encounter Summary ---
[place] [address] Care Team Providers Care Tank Setter Helper Name Role Phone Ashley Quirogan Cornelius ANURAG Primary Care Provider [phone] Reason for Visit * Reason Onset Date Comments Medication Management 09/14/2016 Encounter Details Date Type Department Care Team (Late st Contact Info) Description 09/14/2016 Telephone Hematology [place] [address] Alexandrea Greenwood, slag production worker Management Social History Tobacco Use Types [...] 9:12 AM EST Message received from secretary specialist: Purnima called, asking for clarification on when [...] PM EDT Hospital Encounter [place] [address] Markel Borjas MD [facility] DR HEMATOLOGY [place] [address] 05/29/2024 2:00 PM EDT - 05/29/2024 2:43 PM EDT Surgery [place] [address] Markel Borjas MD [facility] DR HEMATOLOGY [place] [address] (OSC MSURG) BONE MARROW BIOPSY AND ASPIRATION; DIAGNOSTIC (WRVU 1.44) 06/23/2024 2:00 PM EST Office Visit [place]ology [place] [address] Markel Borjas MD [facility] DR HEMATOLOGY [place] [address] 03/01/2025 4:15 PM EDT Office Visit Dermatology at [place] [address] [place] [address] Marek Bonilla MD [address], [address] DERMATOLOGY [place], [place] [address] Scheduled Procedures Name Priority Associated Diagnoses Date/Ti me (OSC MSURG) BONE MARROW BIOPSY AND ASPIRATION; DIAGNOSTIC (WRVU 1.44) Anemia, in pt with longstanding neutropenia 05/29/2024 2:00 PM EDT documented as of this encounter Visit Diagnoses Not on filedocumented in this encounter Care Teams Tank Setter Helper Relationship Specialty Start Date End Date Deborah Quiroga, SOCIAL SERVICE WORKER PCP - General Family Medicine 03/24/16 02/04/23 documented as of this encounter
--- OUTSIDE RECORDS SUMMARY | 2024-05-18 14:07 | XMS_ITS | Encounter Summary ---
[place] [address] Care Team Providers Care Fiction And Nonfiction Writer Prose Name Role Phone Junaid, Deborah Shields APRN Primary Care Provider [phone] Encounter Details Date Type Department Care Team (Late st Contact Info) Description 10/20/2016 11:20 AM EDT Office Visit [place] [address] Alirio Esparza MD S/P AVR Social History [...] all of her postoperative tests done at [facility]. Her echo shows a well-seated valve. Her EF, for some reason, was read as in the 45% to 50% range. She had a normal EF to start. I think that will need to be repeated at [facility]. She has no perivalve leak. Her [...] should continue to see Dr. Burrell, her sports cartoonist at [facility]. cc: Dr. Burrell documented in this encounter Plan of Treatment Upcoming Encounters Date Type Department Care Team (Late st Contact Info) Description 05/29/2024 2:00 PM EDT Hospital Encounter [place] [address] Markel Borjas MD [facility] DR HEMATOLOGY [place] [address] 05/29/2024 2:00 PM EDT - 05/29/2024 2:43 PM EDT Surgery [place] [address] Markel Borjas MD [facility] DR HEMATOLOGY [place] [address] (OSC MSURG) BONE MARROW BIOPSY AND ASPIRATION; DIAGNOSTIC (WRVU 1.44) 06/23/2024 2:00 PM EST Office Visit Hematology [place] [address] Markel Borjas MD [facility] DR HEMATOLOGY [place] [address] 03/01/2025 4:15 PM EDT Office Visit Dermatology at [place] [address] [place] [address] Marek Bonilla MD [address], [place] [address] Scheduled Procedures Name Priority Associated Diagnoses Date/Ti me (OSC MSURG) BONE MARROW BIOPSY AND ASPIRATION; DIAGNOSTIC (WRVU 1.44) Anemia, in pt with longstanding neutropenia 05/29/2024 2:00 PM EDT documented as of this encounter Visit Diagnoses Diagnosis S/P AVR Heart valve replaced by other means documented in this encounter Care Teams Fiction And Nonfiction Writer Prose Relationship Specialty Start Date End Date Deborah Quiroga APRN PCP - General Family Medicine 03/24/16 02/04/23 documented as of this encounter
--- OUTSIDE RECORDS SUMMARY | 2024-05-18 14:07 | XMS_ITS | Encounter Summary ---
[place] [address] Care Team Providers Care Bureau Chief Name Role Phone Ashley Quirogan Cornelius ANURAG Primary Care Provider [phone] Reason for Visit * Reason Onset Date Comments Medical Care Coordination 09/14/2016 Encounter Details Date Type Department Care Team (Late st Contact Info) Description 09/14/2016 Telephone Hematology [place] [address] Alexandrea Greenwood RN Medical Care Coordination Social [...] encounter Miscellaneous Notes * Telephone Encounter - Alxeandrea Greenwood RN - 09/14/2016 9:10 AM EST Message received from engineering secretary: Injection/Infusion Referral Call placed to [facility] Infusion Room Spoke charis Bragg. Services to be provided for pt are: [facility] 09/16/16 [facility] confirmed they would provide services to pt and would contact with appointment time. Pt aware to expect the phone call ??orders faxed to [phone]). documented in this encounter Plan of Treatment Upcoming Encounters Date Type Department Care Team (Late st Contact Info) Description 05/29/2024 2:00 PM EDT Hospital Encounter [place]patient [place] [address] Markel Borjas MD [facility] [place] [address] 05/29/2024 2:00 PM EDT - 05/29/2024 2:43 PM EDT Surgery [place] [address] Markel Borjas MD [facility] [place] [address] (OSC MSURG) BONE MARROW BIOPSY AND ASPIRATION; DIAGNOSTIC (WRVU 1.44) 06/23/2024 2:00 PM EST Office Visit Hematology [place] [address] Markel Borjas MD [facility] [address] [place] [address] 03/01/2025 4:15 PM EDT Office Visit Dermatology at [address] [place] [address] Marek Bonilla MD [address] [place] [address] Scheduled Procedures Name Priority Associated Diagnoses Date/Ti me (OSC MSURG) BONE MARROW BIOPSY AND ASPIRATION; DIAGNOSTIC (WRVU 1.44) Anemia, in pt with longstanding neutropenia 05/29/2024 2:00 PM EDT documented as of this encounter Visit Diagnoses Not on filedocumented in this encounter Care Teams Bureau Chief Relationship Specialty Start Date End Date Deborah Quiroga APRN PCP - General Family Medicine 03/24/16 02/04/23 documented as of this encounter
--- OUTSIDE RECORDS SUMMARY | 2024-05-18 14:07 | XMS_ITS | Encounter Summary ---
[place] [address] Care Team Providers Care Curriculum Consultant Name Role Phone Junaid Deborah Shields APRN Primary Care Provider [phone] Reason for Visit * Auth/Cert Specialty Diagnoses / Procedures Referred By Crispin t Referred To Contact Diagnoses Aortic stenosis Procedures PRO REPLACE AORT VALV, PROSTH VALV @REPLACE AORTIC VALVE, OPEN, W\CPB, W\PROSTHETIC VALVE (WRVU 41.32) Referral ID Status Reason Start Date Expiration Date Visits Re quested Visits Authorized [id number] 1 1 Encounter Details Date Type Department Care Team (Late st Contact Info) Description 09/21/2016 7:25 AM EST Anesthesia Event [place] [address] Luis Enrique Quarles MD [facility] [place] [address] Henrik Cooper MD [facility] [place] [address] Anesthesia Record Procedure Summary Procedure Name Responsible [...] 0819 Sternotomy 0844 CV Bypass init 1009 Hydro Sprayer Operator 1014 An Clamp Remove 1031 CP [...] Tube 09/21/16 (#28 angled chest tube to [place]: left: pericardial); Left; 09/22/16; 1119 09/21/16 0000 by Toshia Alejandre RN 09/22/16 1119 by Vero Bonilla RN Chest Tube 09/21/16 (#28 straig ht chest tube to [place]; right: mediastinal'); Right; mediastinum; 09/22/16; 1118 09/21/16 0000 by Toshia Alejandre RN 09/22/16 1118 by Vero Bonilla RN (RETIRED) Peripheral IV Line - Single Lumen 09/21/16; 0648; metacarpal vein (top of hand), left; [id number] catheter system; 20 gauge; valdo Arteaga; 09/23/16; [...] Stop Room / Location 09/21/16 07 1152 [facility] OR 16 / [facility] MAIN OR Procedure Diagnosis Surgeon Responsible Provider @REPLACE AORTIC VALVE, OPEN, W\CPB, W\PROSTHETIC VALVE (WRVU 41.32) (N/A Chest); @AORTOPLASTY FOR SUPRAVALVULAR STENOSIS (WRVU 29.33) (N/A Chest) () Alirio Francisco MD Clark, Jeffrey A, MD All Anesthesia Providers: Anesthesiologist: Luis Enrique Quarles MD Critical Care Rn: Henrik Cooper MD Last (1hr) Vitals: BP Temp 36.1 ??C (97 ??F) (09/21/16 1800) Pulse 79 (09/21/16 1800) Resp 11 (09/21/16 1800) SpO2 98 % (09/21/16 1800) Patient Location: [facility] Level of Consciousness: Sedated (Pharmacologic/Intentional) [...] PM EDT Hospital Encounter [place] [address] Markel Borjas MD [facility] DR HEMATOLOGY [place] [address] 05/29/2024 2:00 PM EDT - 05/29/2024 2:43 PM EDT Surgery [place] [address] Markel Borjas MD [facility] [address] HEMATOLOGY [place] [address] (OSC MSURG) BONE MARROW BIOPSY AND ASPIRATION; DIAGNOSTIC (WRVU 1.44) 06/23/2024 2:00 PM EST Office Visit [place]ematology [place] [address] Markel Borjas MD [facility] [address] HEMATOLOGY [place] [address] 03/01/2025 4:15 PM EDT Office Visit Dermatology at [place] [address] [facility] [place] [address] Marek Bonilla MD [address], TODD A DERMATOLOGY [place], [place] [address] Scheduled Procedures Name Priority Associated Diagnoses Date/Ti [...] mg documented in this encounter Care Teams Curriculum Consultant Relationship Specialty Start Date End Date Deborah Quiroga, MARKETING SUPPORT ASSISTANT PCP - General Family Medicine 03/24/16 02/04/23 documented as of this encounter
--- OUTSIDE RECORDS SUMMARY | 2024-05-18 14:07 | XMS_ITS | Encounter Summary ---
Author Organization [facility] [place] [address] Care Team Providers Care Machine Shop Instructor Name Role Phone Deborah Quiroga ANURAG Primary Care Provider [phone] Encounter Details Date Type Department Care Team (Late st Contact Info) Description 09/17/2016 External Results Hematology [place] [phone] Alexandrea Greenwood RN Neutropenia, unspecified type Social [...] PM EDT Hospital Encounter [place] [phone] Markel Borjas MD [facility] [address] [place] [address] 05/29/2024 2:00 PM EDT - 05/29/2024 2:43 PM EDT Surgery [place] [phone] Markel Borjas MD [facility] [address] [place] [address] ([facility] MSURG) BONE MARROW BIOPSY AND ASPIRATION; DIAGNOSTIC (WRVU 1.44) 06/23/2024 2:00 PM EST Office Visit Hematology [place] [address] Markel Borjas MD [facility] [place] [address] 03/01/2025 4:15 PM EDT Office Visit Dermatology at [place] [address] [place] [phone] Marek Bonilla MD [address], [place] [address] Scheduled Procedures Name Priority Associated Diagnoses Date/Ti [...] documented in this encounter Care Teams Machine Shop Instructor Relationship Specialty Start Date End Date Deborah Quiroga, ANURAG PCP - General Family Medicine 03/24/16 02/04/23 documented as of this encounter
--- OUTSIDE RECORDS SUMMARY | 2024-05-18 14:07 | XMS_ITS | Encounter Summary ---
Author Organization [facility] Address [facility] [place] [address] Care Team Providers Care Survey Associate Name Role Phone Deborah Quiroga APRN Primary Care Provider [phone] Encounter Details Date Type Department Care Team (Latest Contact Info) Description 10/14/2016 - 10/14/2016 11:59 PM EDT Hospital Encounter Radiology Library at [facility] [place] [phone] Alirio Esparza MD Pain Discharge Disposition: Home [...] PM EDT Hospital Encounter Outpatient [place] [address] Markel Borjas MD [facility] [address] [place] [address] 05/29/2024 2:00 PM EDT - 05/29/2024 2:43 PM EDT Surgery [place] [address] Markel Borjas MD [facility] [address] [place] [address] ([facility] MSURG) BONE MARROW BIOPSY AND ASPIRATION; DIAGNOSTIC (WRVU 1.44) 06/23/2024 2:00 PM EST Office Visit Hematology [place] [address] Markel Borjas MD [facility] [address] [place] [address] 03/01/2025 4:15 PM EDT Office Visit Dermatology at [address] [address] Marek Bonilla MD [address], [place] [address] Scheduled Procedures Name Priority Associated Diagnoses Date/Ti [...] DX Chest (10/14/2016 12:00 AM EDT) Narrative [facility] 10/14/2016 5:16 PM EDT This exam is for storage only and is auto-finalizing. Alirio Esparza MD IMG FILM LIBRARY OR DERABLES Performing Organization Address City/State/[facility] Co de Phone Number [place], [place] documented in this encounter Visit Diagnoses Diagnosis Pain Generalized pain documented in this encounter Care Teams Survey Associate Relationship Specialty Start Date End Date Deborah Quiroga, CONCRETE WORKER PCP - General Family Medicine 03/24/16 02/04/23 documented as of this encounter
--- OUTSIDE RECORDS SUMMARY | 2024-05-18 14:07 | XMS_ITS | Encounter Summary ---
[place] [address] Care Team Providers Care Yarn Bleaching Machine Operator Name Role Phone JunaidDeborah APRN Primary Care Provider [phone] Reason for Visit * Reason Onset Date Comments Labs Only 09/16/2016 Encounter Details Date Type Department Care Team (Late st Contact Info) Description 09/16/2016 Telephone H[place]ology [place] [phone] Alexandrea Greenwood, RN Labs Only Social History [...] 09/16/2016 11:09 AM EST Message received from guidance secretary: Purnima is having her Neulasta done today at [facility]. ??She is wondering if we want to do a CBC prior to the injection? [phone] Borjas: CBC is fine RN spoke with Swapna at [facility] who confirms they can draw CBC on pt today, RN faxed CBC w/diff to [facility] lab at [phone] RN relayed to pt that CBC ordered had been faxed to [facility], pt will have CBC drawn today prior to neulasta injection. documented in this encounter Plan of Treatment Upcoming Encounters Date Type Department Care Team (Late st Contact Info) Description 05/29/2024 2:00 PM EDT Hospital Encounter Outpatient [place] [phone] Markel Borjas MD [facility] [address] [place] [address] 05/29/2024 2:00 PM EDT - 05/29/2024 2:43 PM EDT Surgery [place]patient [place] [phone] Markel Borjas MD [facility] [address] [place] [address] ([facility] MS[facility]) BONE MARROW BIOPSY AND ASPIRATION; DIAGNOSTIC (WRVU 1.44) 06/23/2024 2:00 PM EST Office Visit [place]ology [place] [phone] Markel Borjas MD [facility] [address] [place] [address] 03/01/2025 4:15 PM EDT Office Visit Dermatology at [place] [address] [place] [phone] Marek Bonilla MD [address], [place] [address] Scheduled Procedures Name Priority Associated [...] type documented in this encounter Care Teams Yarn Bleaching Machine Operator Relationship Specialty Start Date End Date Deborah Quiroga, LPN INSTRUCTOR PCP - General Family Medicine 03/24/16 02/04/23 documented as of this encounter
--- OUTSIDE RECORDS SUMMARY | 2024-05-18 14:07 | XMS_ITS | Encounter Summary ---
[place] [address] Care Team Providers Care Shipping Specialist Name Role Phone Ashley Quirogazac Shields APRN Primary Care Provider [phone] Reason for Visit * Auth/Cert Specialty Diagnoses / Procedures Referred By Crispin t Referred To Contact Diagnoses Aortic stenosis Procedures PRO REPLACE AORT VALV, PROSTH VALV @REPLACE AORTIC VALVE, OPEN, W\CPB, W\PROSTHETIC VALVE (WRVU 41.32) Referral ID Status Reason Start Date Expiration Date Visits Re quested Visits Authorized [id number] 1 1 Encounter Details Date Type Department Care Team (Late st Contact Info) Description 09/21/2016 7:30 AM EST - 09/21/2016 12:04 PM EST Surgery [place] [address] Alirio Esparza MD @REPLACE AORTIC VALVE, OPEN, [...] Patient Age: 61 y.o. Birthdate: 1955 Language: Romansh Race: White Ethnicity: Not nor Admit Date: 09/21/2016 Discharge Date: 09/25/2016 Attending Physician: Alirio Esparza MD Follow-up Recommendations for Providers: Please continue routine management of cardiovascular risk factors including blood pressure, lipids,glucose, etc. Please note any changes to medications. Patient to follow-up with PCP, Deborah Quiroga APRN, in 1-2 weeks. Patient to follow-up with Associate Biological Sales, Dr. Antelmo Burrell, in two weeks. Patient to follow-up with Cardiac Surgery, Dr. Alirio Esparza, to be scheduled for before 10/19/2016, with CXR, EKG, and Echo. Inpatient Provider Contact Information: [facility] Section of Cardiac Surgery [facility] [address] FAX [phone] Discharge Diagnoses (Hospital Problems) Primary Diagnoses: Secondary [...] performed by Alirio Esparza MD at [facility] MAIN OR ??? Pro aortoplas for supravalv sten N/A 09/21/2016 @AORTOPLASTY FOR SUPRAVALVULAR STENOSIS (WRVU 29.33) performed by Alirio Esparza MD at [facility] MAIN OR Prior To Admission [...] Hospital Course: Purnima Thacker was admitted to [facility] on 09/21/2016 via the Same Day [...] Alirio Esparza and/or the Cardiac Surgery Physician Pole Tester Team may be reached at . Antibiotic prophylaxis: You will need to take antibiotics prior to many invasive tests and treatments, such as dental cleaning, which should be done every 6 months. Your primary care physician or your dentist can prescribe this medication. Please refer to the card with the [place] Heart Association Guidelines for more information. You have been provided with 3 copies of this card. Keep one for your self. Give one to your primary care physician and one to your dentist. Please refer to the [place] Heart Association Guidelines for more information. Good [...] Dr. Alirio Jones. You may use a [place] Track or treadmill but avoid any pulling [...] friends, go to a movie, go to adventism, etc. Heavy activities: No hunting, skiing, jogging, [...] should resume a low fat, low cholesterol, [place] Heart Association Diet. Driving: No driving until [...] the outpatient Phase 2 Cardiac Rehabilitation at [facility]. The patient agrees to a referral to this program. The referral will be sent at discharge and the patient should be contacted by the program within 1- 2 weeks from discharge. Future Appointments and Orders Future Appointments Provider Department Dept Phone 11/20/2016 11:30 AM Markel Borjas MD [facility] [phone] Future Orders Complete By Expires Echocardiogram Transthoracic([facility]) [TNH417 Custom] 10/18/2016 (Approximate) 09/18/2017 Process Instructions: If the Echocardiogram is to be PERFORMED in a DH location other than [place]--STOP and order [id number], Echocardiogram South/External. Scheduling Instructions: Questions: Is a Bubble Study requested?: No Does the patient have Congenital Heart Disease?: No Does patient require sedation?: None GA rationale: Should this service be billed to the research sponsor?: EKG 12 Lead [EKG1 Custom] 10/18/2016 (Approximate) 09/25/2017 Process Instructions: Scheduling Instructions: Questions: Which DH location will this be performed?: [place] Is a rhythm strip needed?: No If EKG Reason is Pre-op Evaluation, indicate diagnosis for surgery.: Should this service be billed to the research sponsor?: XR Chest PA & Lateral (Generic) [[id number] Custom] 10/18/2016 (Approximate) 09/25/2017 Process Instructions: Scheduling Instructions: Questions: Where will study be performed?: [facility]- Radiology Portable exam?: No Reason for exam and clinical history: s/p AVReplacement, patch annuloplasty 1 month f/u Other pertinent information: Stat read required?: Date of injury if applicable: Requested Time: Referral to Cardiac Rehab [NOL039 Custom] As directed Process Instructions: If no progress note charted, please enter Clinical details in comments. Scheduling Instructions: Questions: My question or request is: s/p AVR. Cardiac rehab at [facility] Referral to Home Health - at DISCHARGE [PFS6358 CPT(R)] As directed Process Instructions: Scheduling Instructions: Comments: DOCUMENTATION FOR VNA SERVICES (INCLUDING THOSE PATIENTS WITH MEDICARE COVERAGE REQUIRING HOME VNA SERVICES AND/OR HOSPICE SERVICES) PATIENT'S LOCATION: Purnimakary Gallego[address] [address] (home) No relevant phone numbers on file. Public Welfare Director's Name: self In discussion with the attending physician, it is certified that this patient is under their care and that they, or a Nurse Practitioner, or Physician Pole Tester who is working directly with them, hada [...] for services as follows: HOME HEALTH AGENCY: [facility] PHONE: [phone] FAX: [phone] RN orders: Cardiopulmonary assessment, incisional assessment, assess [...] issues please call the Cardiac SurgeryOffice at [phone] FOR MEDICARE ONLY: In discussion with the [...] contact information: [facility] V[facility] Patient location post discharge: home What services are requested: Registered Nurse Physical Therapy Occupational Therapy Start date: Responsible MD post discharge contact info: Arrangements for VNA/home care: As above. VN RN OR PCP TO PLEASE REMOVE CHEST TUBE SUTURES ON OR AFTER 09/30/16 Signed: Crispin Aranda PA-C 09/25/2016 [facility] Section of Cardiac Surgery [facility] [address] FAX [phone] Date: 09/25/2016 CC: ANURAG Alford Caryn E, APRN [address] [place] [address] documented in this encounter Discharge Instructions * [...] Alirio Esparza and/or the Cardiac Surgery Physician Pole Tester Team may be reached at . Antibiotic prophylaxis: You will need to take antibiotics prior to many invasive tests and treatments, such as dental cleaning, which should be done every 6 months. Your primary care physician or your dentist can prescribe this medication. Please refer to the card with the [place] Heart Association Guidelines for more information. You have been provided with 3 copies of this card. Keep one for your self. Give one to your primary care physician and one to your dentist. Please refer to the [place] Heart Association Guidelines for more information. Good [...] Dr. Alirio Jones. You may use a [place] Track or treadmill but avoid any pulling [...] friends, go to a movie, go to adventism, etc. Heavy activities: No hunting, skiing, jogging, [...] should resume a low fat, low cholesterol, [place] Heart Association Diet. Driving: No driving until [...] the outpatient Phase 2 Cardiac Rehabilitation at [facility]. The patient agrees to [...] PM EST Cardiac Surgery Progress Note: ID: [id number] S/p AVR, patch aortoplasty POD#2. PMH of [...] Gas) No results found for: PHART, PO2ART, DXD1OOL Assessment/Plan: TPW out this am. (+) BM. [...] Signed: Crispin Aranda PA-C 09/24/2016 Team pager: [phone]; [phone] after 5pm [facility] Section of Cardiac Surgery * Leonor Henson S, SUSTAINABILITY SPECIALIST - 09/23/2016 10:48 AM EST Cardiac Surgery Progress Note: ID: [id number] s/p AVR, patch aortoplasty POD#2. PMH of [...] Gas) No results found for: PHART, PO2ART, DLL9JNE Assessment/Plan: s/p AVR, patch aortoplasty POD#2. PMH of Neutropenia, HLD, HTN, Depression, obesity, . Transferred from [facility] yesterday and doing well. Pathway. Will [...] Surgeon on rounds. Signed: Leonor Henson APRN [facility] Section of Cardiac Surgery Date: 09/23/2016 * Nico Palacios PA - 09/22/2016 9:56 AM EST Cardiac Surgery Progress Note: ID: [id number] s/p AVR, patch aortoplasty POD#1. PMH of [...] NT, ND, soft. Ext: Moves all extremities. O'Brien, well perfused. Incisions: C/D/I Tubes/Lines/Drains: PIV, leanna, [...] Attending Surgeon on rounds. Signed: EKATERINA KIM [facility] Section of Cardiac Surgery Date: 09/22/2016 [...] Outcome (s) achieved Date Met: 09/25/16 09/25/16 9894 Coping/Psychosocial Plan Of Care Reviewed With patient [...] health, home with outpatient services Lalitha Cohen [facility] Pager: [phone] Inpatient Physical Therapy Patient status, treatment interventions, and goals discussed with student. I am in agreement with all details and associated flowsheet rows as documented and was present for all aspects of the patient treatment session. Nery Jaramillo, CANDY Pager [phone] Problem: Acute Rehab Services Goal & Intervention Plan Goal: Bed Mobility Goal Stand Alone Therapy Goal Outcome: Ongoing (Interventions Implemented as Appropriate) 09/22/16 1611 09/25/16 0947 Bed Mobility Goal Bed Mobility Goal, Time to Achieve 4 days -- Bed Mobility Goal, Activity Type scoot/bridge;supine to sit/sit to supine -- Bed Mobility Goal, [place] Level independent -- Bed Mobility Goal, Additional [...] Achieve 4 days -- Gait Training Goal, [place] Level independent -- Gait Training Goal, Distance [...] health Lalitha Cohen [facility] Pager: [phone] Inpatient Physical Therapy Patient status, treatment interventions, and goals discussed with student. I am in agreement with all details and associated flowsheet rows as documented and was present for all aspects of the patient treatment session. Nery Jaramillo, SUPERVISOR FILTRATION Pager [phone] Problem: Acute Rehab Services Goal & Intervention Plan Goal: Bed Mobility Goal Stand Alone Therapy Goal Outcome: Ongoing (Interventions Implemented as Appropriate) 09/22/16161009/23/161411 Bed Mobility Goal Bed Mobility Goal, Time to Achieve 4 days -- Bed Mobility Goal, Activity Type scoot/bridge;supine to sit/sit to supine -- Bed Mobility Goal, [place] Level independent -- Bed Mobility Goal, Additional [...] Achieve 4 days -- Gait Training Goal, [place] Level independent -- Gait Training Goal, Distance [...] days -- Transfer Training Goal, Activity Type qhr-zw-dcqpe/jdedj-ml-isg;goq-sq-hlzdt/zgysq-az-ubf -- Transfer Train Goal, [place] Level independent -- Transfer Training Goal, Additional Goal abides sternal precautions -- Transfer Training Goal, Outcome -- goal met * Consult Note - Jana Crenshaw RN - 09/23/2016 9:41 AM EST [facility] CARDIAC REHABILITATION Purnima Thacker was seen today regarding participation in the outpatient Phase 2 Cardiac Rehabilitation at [facility]. The patient agrees to [...] Another Service: (cardiac rehab) NICOLE HERNANDEZ, PT Pager:[phone] Inpatient Physical Therapy Problem: Acute Rehab Services Goal & Intervention Plan Goal: Bed Mobility Goal Stand Alone Therapy Goal Outcome: Ongoing (Interventions Implemented as Appropriate) 09/22/161610 Bed Mobility Goal Bed Mobility Goal, Time to Achieve 4 days Bed Mobility Goal, Activity Type scoot/bridge;supine to sit/sit to supine Bed Mobility Goal, [place] Level independent Bed Mobility Goal, Additional Goal able to abide sternal precautions during transfers Goal: Gait Training Goal Stand Alone Therapy Goal Outcome: Ongoing (Interventions Implemented as Appropriate) 09/22/161610 Gait Training Goal Gait Training Goal, Date Established 09/22/16 Gait Training Goal, Time to Achieve 4 days Gait Training Goal, [place] Level independent Gait Training Goal, Distance to Achieve ascend and descends 2 steps independently Goal: Goal Transfer Training Stand Alone Therapy Goal Outcome: Ongoing (Interventions Implemented as Appropriate) 09/22/161610 Goal Transfer Training Transfer Training Goal, Time to Achieve 4 days Transfer Training Goal, Activity Type llv-ho-nvzel/dfvzs-ju-qxn;dkn-gk-pajwe/zkfeg-oh-xvs Transfer Train Goal, [place] Level independent Transfer Training Goal, Additional Goal abides sternal precautions * Initial Assessments - Amanda Moreno RN - 09/22/2016 9:56 AM EST Office of Care Management Initial Assessment Amanda Moreon RN reviewed record and discussed patient with [...] of completing AD's at home, chooses her skmprh-pz-iay, Martha Thacker (home) for her DPOAH, 2nd choice in friend, Nitesh Rad, [place], [place] Current Coping/Education/Information Needs: patient sitting up [...] close by, Rashad & Raymond, and her muouxa-lh-fhr Martha Thacker who she has chosen to be her DPOAH. Also has a friend Nitesh Leroy who lives in [place], [place], also her DPOAH choice. Behavioral Health History: none on file in eDH Substance Use/Abuse: none on file in e[facility] Other Pertinent/Service Specific Information: none Health/Prescription Coverage: Primary Insurance: [employer] Secondary Insurance: none Prescription Coverage: yes, per patient no issues Preferred Pharmacy: ?? Other: none Primary Care Provider: Deborah Quiroga, SUSTAINABILITY SPECIALIST [phone] Patient/Caregiver Goals of Treatment: per medical team recommendations at discharge for CT surgery Potential Needs for Transition of Care: Rehab/SNF: TBD Home Health: TBD DME: no Dialysis: no Community Resources: non3 Transportation: ride home with a friend Other: none Anticipated Barriers to Discharge/Special Considerations: none anticipated at this time Plan: patient will need VNA services at discharge. The patient/delivery representative has been provided a list of Home Health Agencies/DME vendors which servetheir preferred geographic area. A letter describing our affiliations was reviewed with them and they were educated about their right to choose where referrals are placed. Patient requests referral to: [facility] PHONE: [phone] FAX: [phone] Expected date of discharge: Fri/Sat? CM called VNA to confirm referral, talked with VALDO Bunn/intake who stated she was familiar w/patient & would monitor her progress through curaspan. Referral routed to the Multimedia Editor for matching with agency/vendor and to provide any required information. A member of the Care Management team will continue to monitor progress, follow for continuity of care and assist with transition of care planning. Amanda Moreno RN Pager: [phone] * Op Note - Alirio Esparza MD - 09/21/2016 12:53 PM EST 09/23/2016 Purnima Thacker 1955 [id number] Preoperative Diagnosis: Symptomatic aortic stenosis Postoperative Diagnosis: Symptomatic aortic stenosis Procedure: Aortic valve replacement: Bovine Pericardial 25 mm Surgeon: Alirio Esparza M.D. Pole Tester: Philip BALL Anesthesia: General endotracheal anesthesia Drains: [...] patient was transported to the [facility] on levo. All counts were correct. [...] Operative Note Patient Name: Purnima Thacker : [id number] MR#: [id number] Case Date: 09/21/2016 Surgeon: Surgeon(s) and Role: * Alirio Esparza MD - Primary * Nico Palacios PA - Physician Pole Tester Preoperative diagnosis: Postoperative diagnosis: Procedure(s) (LRB): @REPLACE [...] PM EDT Hospital Encounter [place] [phone] Markel Borjas MD [facility] [address] HEMATOLOGY [place] [address] 05/29/2024 2:00 PM EDT - 05/29/2024 2:43 PM EDT Surgery Outpatient [place] [phone] Markel Borjas MD [facility] DR HEMATOLOGY [place] [address] (OSC MSURG) BONE MARROW BIOPSY AND ASPIRATION; DIAGNOSTIC (WRVU 1.44) 06/23/2024 2:00 PM EST Office Visit [place]ology [place] [address] Markel Borjas MD [facility] DR HEMATOLOGY [place] [address] 03/01/2025 4:15 PM EDT Office Visit Dermatology at [place] [address] [place] [phone] Marek Bonilla MD [address], [place] [address] Scheduled Orders Name Type Priority [...] IMPLANTABLE DEVICES SCAN 09/26/2016 12:00 AM EST BEE RAISER SCAN 09/26/2016 12:00 AM EST POTASSIUM Routine [...] SCAN EXT O RDR/RSLT * SCAN DOC: BEE RAISER (09/26/2016 12:00 AM EST) Anatomical Region Laterality Modality Other Narrative 09/26/2016 12:00 AM EST Ordered by an unspecified provider. Scanning Provider MEDIA MGR SCAN EXT O RDR/RSLT * Potassium (09/25/2016 4:32 AM EST) Potassium 4.4 3.5 - 5.0 mmol/L [facility] [...] CHEMISTRY ORDERABLE S [facility] [place] [address] * (ABNORMAL) Differential, Automated (09/24/2016 9:56 AM EST) Neutrophil % 76.8 % [facility] Neutrophil Absolute 7.79(H) 1.70 - 6.10 x10(3)/mc L [facility] Lymph % 11.1 % [facility] Lymphocytes Abs 1.1 0.9 - 3.2 x10(3)/ L [facility] Monocyte % 8.5 % [facility] Monocyte Abs 0.9 0.3 - 0.9 x10(3)/ L [facility] Eos % 0.5 % [facility] Eosinophils Abs 0.0 0.0 - 0.4 x10(3)/ L [facility] Basophil % 0.2 % [facility] Baso Absolute 0.0 0.0 - 0.1 x10(3)/ L [facility] Immature Gran % 2.90 % [facility] Comment: Immature granulocytes(IG's)percentage and absolute count will include metamyelocytes, myelocytes, and promyelocytes. Blood smears from CBCs yielding IG's will be scanned manually for concordance. If this scan disagrees with the automated IG or if promyelocytes are noted, a manual differential will be performed. Immature Gran Absolute 0.29(H) 0.00 - 0.04 x10(3)/ L [facility] Blood specimen (specimen) 09/24/2016 9:56 AM EST 09/24/2016 10:04 AM EST Narrative Resulting Agency Comment Spec In Lab Alirio Esparza MD HEMATOLOGY ORDERABL ES Performing Organization Address City/State/[facility] Co de Phone Number [facility] [place] [address] * (ABNORMAL) Hemogram (09/24/2016 9:56 AM EST) White Blood Cell 10.1(H) 4.0 - 9.5 x10(3)/ L [facility] Red Blood Cell 2.87(L) 4.00 - 5.21 x10(6)/ L [facility] Hemoglobin 9.4(L) 11.7 - [...] HEMATOLOGY ORDERABL ES [facility] [place] [address] * (ABNORMAL) Basic Metabolic Panel (non-fasting) (09/24/2016 [...] intervals supplied above were not validated at [facility]. Results from pediatric patients should be interpreted [...] the following links into your internet browser. [email or web address] Blood specimen (specimen) 09/24/2016 9:56 AM EST 09/24/2016 10:04 AM EST Narrative Resulting Agency Comment Spec In Lab Alirio Esparza MD CHEMISTRY ORDERABLE S Performing Organization Address City/State/[facility] Co de Phone Number [facility] [place] [address] * XR Chest PA & Lateral (Generic) [...] CHEMISTRY ORDERABLE S [facility] [place] [address] * POCT Glucose (09/22/2016 8:17 AM EST) Glucose, POC 131 65 - 199 mg/dL [facility] Comment: Supplemental ranges: <140 mg/dL before meals <180 mg/dL all other times of the day Blood specimen (specimen) 09/22/2016 8:17 AM EST 09/22/2016 8:17 AM EST Alirio Esparza MD POINT OF CARE TEST ORDERABLES Performing Organization Address [facility] Co de Phone Number [facility] [place] [address] * POCT Glucose (09/22/2016 4:01 AM EST) Pathologist [facility] Glucose, POC 135 65 - 199 mg/dL [facility] Comment: Supplemental ranges: <140 mg/dL before meals <180 mg/dL all other times of the day Blood specimen (specimen) 09/22/2016 4:01 AM EST 09/22/2016 4:01 AM EST Alirio Esparza MD POINT OF CARE TEST ORDERABLES Performing Organization Address [facility] de Phone Number [facility] [place] [address] * Scan, Peripheral Blood (09/22/2016 4:00 AM EST) Pathologist [facility] Plat estimate Normal [facility] RBC Morphology Abnormal [facility] Macrocyte 1-5 /HPF [facility] Plat, Giant Less than 1 /HPF [facility] Blood specimen (specimen) 09/22/2016 4:00 AM EST 09/22/2016 4:34 AM EST Narrative Resulting Agency Comment Spec In Lab Alirio Esparza MD HEMATOLOGY ORDERABL ES Performing Organization Address [facility] Co de Phone Number [facility] [place] [address] * Electrolytes panel (09/22/2016 4:00 AM EST) [facility] Sodium 145 135 - 145 mmol/L [facility] [...] CHEMISTRY ORDERABLE S [facility] [place] [address] * (ABNORMAL) Differential, Automated (09/22/2016 4:00 AM EST) Neutrophil % 70.9 % [facility] Neutrophil Absolute 5.33 1.70 - 6.10 x10(3)/mc L [facility] Lymph % 9.1 % [facility] Lymphocytes Abs 0.7(L) 0.9 - 3.2 x10(3)/mc L [facility] Monocyte % 18.0 % [facility] Monocyte Abs 1.4(H) 0.3 - 0.9 x10(3)/mc L [facility] Eos % 0.0 % [facility] Eosinophils Abs 0.0 0.0 - 0.4 x10(3)/mc L [facility] Basophil % 0.1 % [facility] [...] HEMATOLOGY ORDERABL ES [facility] [place] [address] * (ABNORMAL) Hemogram (09/22/2016 4:00 AM EST) White Blood Cell 7.5 4.0 - 9.5 x10(3)/[facility] Red Blood Cell 2.93(L) 4.00 - 5.21 x10(6)/[facility] Hemoglobin 9.2(L) 11.7 - 15.5 [...] CENTER LABORATORY Platelet 161 145 - 357 x10(3)/[facility] RDW Standard Deviation 44.0 37.0 - 46.0 [facility] RDW coefficient of variation 12.6 11.5 - 14.1 % [facility] Mean Platelet Volume 9.3 7.6 - 12.9 fL [facility] NRBC% auto 0.3 % [facility] NRBC Absolute 0.020(H) 0.000 - 0.000 x10(3)/[facility] Blood specimen (specimen) 09/22/2016 4:00 AM EST 09/22/2016 4:34 AM EST Narrative Resulting Agency Comment Spec In Lab Alirio Esparza MD HEMATOLOGY ORDERABL ES Performing Organization Address [facility] Co de Phone Number [facility] [place] [address] * (ABNORMAL) Cardiac Enzymes (09/22/2016 4:00 AM EST) Troponin-T 0.13(H) <=0.03 ng/mL [facility] [...] consensus document of the Joint Society of Cardiology/[place] College of Cardiology Committee for the redefinition of myocardial infarction. ??Journal of the [place] College of Cardiology 2000; 36: 959-969] Creatine Kinase 338(H) 0 - 160 unit/L [facility] Blood specimen (specimen) 09/22/2016 4:00 AM EST 09/22/2016 4:34 AM EST Narrative Resulting Agency Comment Spec In Lab Alirio Esparza MD CHEMISTRY ORDERABLE S Performing Organization Address [facility] Co de Phone Number [facility] [place] [address] * (ABNORMAL) Glucose, fasting (09/22/2016 4:00 AM [...] of Diabetes Mellitus, Position Statement from the [place] Diabetes Association. ??Diabetes Care, Volume 33, Supplement 1, Aug 2009 Blood specimen (specimen) 09/22/2016 4:00 AM EST 09/22/2016 4:34 AM EST Narrative Resulting Agency Comment Spec In Lab Alirio Esparza MD CHEMISTRY ORDERABLE S Performing Organization Address City/State/[facility] Co de Phone Number [facility] [place] [address] * (ABNORMAL) Creatinine (09/22/2016 4:00 AM EST) Creatinine 0.69(L) 0.70 - 1.20 mg/dL [facility] Comment: Please note that the pediatric reference intervals supplied above were not validated at [facility]. Results from pediatric patients should be interpreted in conjunction to the patient's age, height and muscle mass. Est Glomerular Filtration Rate >60 >=60 [facility] [...] the following links into your internet browser. [email or web address] Blood specimen (specimen) 09/22/2016 4:00 AM EST 09/22/2016 4:34 AM EST Narrative Resulting Agency Comment Spec In Lab Alirio Esparza MD CHEMISTRY ORDERABLE S Performing Organization Address City/[facility]/ZIP Co de Phone Number [facility] [place] [address] * BUN (09/22/2016 4:00 AM EST) Blood Urea Nitrogen 10 8 - 18 mg/dL [facility] Blood specimen (specimen) 09/22/2016 4:00 AM EST 09/22/2016 4:34 AM EST Narrative Resulting Agency Comment Spec In Lab Alirio Esparza MD CHEMISTRY ORDERABLE S Performing Organization Address [facility] Co de Phone Number [facility] [place] [address] * POCT Glucose (09/21/2016 9:59 PM EST) Glucose, POC 146 65 - 199 mg/dL [facility] Comment: Supplemental ranges: <140 mg/dL before meals <180 mg/dL all other times of the day Blood specimen (specimen) 09/21/2016 9:59 PM EST 09/21/2016 9:59 PM EST Alirio Esparza MD POINT OF CARE TEST ORDERABLES Performing Organization Address [facility] Co de Phone Number [facility] [place] [address] * POCT Glucose (09/21/2016 7:26 PM EST) Glucose, POC 152 65 - 199 mg/dL [facility] Comment: Supplemental ranges: <140 mg/dL before meals <180 mg/dL all other times of the day Blood specimen (specimen) 09/21/2016 7:26 PM EST 09/21/2016 7:26 PM EST Alirio Esparza MD POINT OF CARE TEST ORDERABLES Performing Organization Address City/[facility]/ZIP Co de Phone Number [facility] [place] [address] * POCT Glucose (09/21/2016 6:00 PM EST) Pathologist [facility] Glucose, POC 146 65 - 199 mg/dL [facility] Comment: Supplemental ranges: <140 mg/dL before meals <180 mg/dL all other times of the day Blood specimen (specimen) 09/21/2016 6:00 PM EST 09/21/2016 6:00 PM EST Alirio Esparza MD POINT OF CARE TEST ORDERABLES [facility] [place] [address] * (ABNORMAL) BLOOD GAS 2 ARTERIAL (09/21/2016 4:42 PM EST) [facility] pH, Arterial 7.35(L) 7.35 - 7.45 [facility] [...] TEST ORDERABLES Performing Organization Address [facility]/ZIP Co de Phone Number [facility] [place] [address] * POCT Glucose (09/21/2016 4:07 PM EST) Glucose, POC 150 65 - 199 mg/dL [facility] Comment: Supplemental ranges: <140 mg/dL before meals <180 mg/dL all other times of the day Blood specimen (specimen) 09/21/2016 4:07 PM EST 09/21/2016 4:07 PM EST Alirio Esparza MD POINT OF CARE TEST ORDERABLES Performing Organization Address City/[facility]/ZIP Co de Phone Number [facility] [place] [address] * (ABNORMAL) Hemoglobin (09/21/2016 4:05 PM EST) Hemoglobin 9.9(L) 11.7 - 15.5 gm/dL [facility] Blood specimen (specimen) 09/21/2016 4:05 PM EST 09/21/2016 4:20 PM EST Narrative Resulting Agency Comment Spec In Lab Alirio Esparza MD HEMATOLOGY ORDERABL ES Performing Organization Address [facility] de Phone Number [facility] [place] [address] * Potassium (09/21/2016 4:05 PM EST) Potassium [...] ORDERABLE S Performing Organization Address [facility] de Phone Number [facility] [place] [address] * POCT Glucose (09/21/2016 2:52 PM EST) Glucose, POC 117 65 - 199 mg/dL [facility] Comment: Supplemental ranges: <140 mg/dL before meals <180 mg/dL all other times of the day Blood specimen (specimen) 09/21/2016 2:52 PM EST 09/21/2016 2:52 PM EST Alirio Esparza MD POINT OF CARE TEST ORDERABLES Performing Organization Address [facility] Co de Phone Number [facility] [place] [address] * POCT Glucose (09/21/2016 1:51 PM EST) Glucose, POC 108 65 - 199 mg/dL [facility] Comment: Supplemental ranges: <140 mg/dL before meals <180 mg/dL all other times of the day Blood specimen (specimen) 09/21/2016 1:51 PM EST 09/21/2016 1:51 PM EST Alirio Esparza MD POINT OF CARE TEST ORDERABLES Performing Organization Address City/[facility]/ZIP Co de Phone Number [facility] [place] [address] * POCT Glucose (09/21/2016 12:54 PM EST) Glucose, POC 128 65 - 199 mg/dL [facility] Comment: Supplemental ranges: <140 mg/dL before meals <180 mg/dL all other times of the day Blood specimen (specimen) 09/21/2016 12:54 PM EST 09/21/2016 12:54 PM EST Alirio Esparza MD POINT OF CARE TEST ORDERABLES Performing Organization Address [facility] Co de Phone Number [facility] [place] [address] * EKG 12 Lead (09/21/2016 12:26 PM EST) Ventricular rate 87 BPM MUSE SYSTEM Atrial Rate 87 BPM MUSE SYSTEM P-R Interval 256 ms MUSE SYSTEM QRS Duration 90 ms MUSE SYSTEM Q-T Interval 406 ms MUSE SYSTEM QTC Calculated (Bezet) 488 ms MUSE SYSTEM Calculated P [place] 24 degrees MUSE SYSTEM Calculated R [place] 21 degrees MUSE SYSTEM Calculated T [place] -5 degrees MUSE SYSTEM INTERPRETATION Sinus rhythm [...] Esparza MD ECG ORDERABLES Performing Organization Address City/[facility] Co de Phone Number MUSE SYSTEM [...] course of the esophagus and below the [id number]. There is a right IJ PA catheter [...] the course of theesophagus and below the [id number]. There is a right IJ PA catheter [...] CARE TEST ORDERABLES [facility] [place] [address] * (ABNORMAL) BLOOD GAS 2 ARTERIAL (09/21/2016 [...] [facility] Temp Art 36.7 Celsius [facility] Blood specimen (specimen) 09/21/2016 10:54 AM EST 09/21/2016 10:54 AM EST Alirio Esparza MD POINT OF CARE TEST ORDERABLES [facility] [place] [address] * Thrombin time (09/21/2016 10:50 AM EST) [...] ORDERABLE S Performing Organization Address [facility] Co de Phone Number [facility] [place] [address] * Fibrinogen (09/21/2016 10:50 AM EST) Pathologist [facility] Fibrinogen 228 180 - 510 mg/dL [facility] [...] City/[facility]/ZIP Co de Phone Number [facility] [place] [address] * APTT (09/21/2016 10:50 AM EST) Partial Thromboplastin Time 32 25 - 35 sec [facility] Comment: The recommended therapeutic range for full dose, unfractionated heparin at [facility] is 80 ? 114 seconds. The use [...] City/[facility]/ZIP Co de Phone Number [facility] [place] [address] * (ABNORMAL) Prothrombin Time (09/21/2016 10:50 AM EST) [facility] Prothrombin Time 18.7(H) 12.0 - 15.0 sec [...] HEMATOLOGY ORDERABLE S [facility] [place] [address] * (ABNORMAL) Hemogram (09/21/2016 10:50 AM EST) [...] [facility] NRBC% auto 0.1 % [facility] NRBC Absolute 0.020(H) 0.000 - 0.000 x10(3)/mc L [facility] Blood specimen (specimen) 09/21/2016 10:50 AM EST 09/21/2016 10:56 AM EST Narrative Resulting Agency Comment Spec In Lab Luis Enrique Quarles MD HEMATOLOGY ORDERABLE S [facility] [place] [address] * Prepare Platelets, Apheresis (09/21/2016 10:30 AM EST) Dispensed? Yes [facility] Blood specimen (specimen) 09/21/2016 10:30 AM EST 09/21/2016 10:28 AM EST Alirio Esparza MD BLOOD BANK PRODUCT ORDERABLES [facility] [place] [address] * (ABNORMAL) BLOOD GAS 2 ARTERIAL (09/21/2016 10:05 AM EST) pH, Arterial 7.33(L) 7.35 - 7.45 [facility] PCO2, Arterial 54(Critic al) 35 - 45 mmHg [facility] Comment:Noted by apprentice instrument technician. PO2, Arterial 218(H) 85 - [...] [facility] Comment: Noted by apprentice instrument technician. Please note: Patients with WBC [...] CARE TEST ORDERABLES [facility] [place] [address] * (ABNORMAL) BLOOD GAS 2 ARTERIAL (09/21/2016 9:44 AM EST) pH, Arterial 7.22(Criti gabrielle) 7.35 - 7.45 [facility] Comment:Noted by apprentice instrument technician. PCO2, Arterial 70(Critica l) 35 - 45 mmHg [facility] Comment:Noted by apprentice instrument technician. PO2, Arterial 224(H) 85 - [...] TEST ORDERABLES Performing Organization Address [facility] Phone Number [facility] [place] [address] * (ABNORMAL) Hemoglobin (09/21/2016 9:42 AM EST) Hemoglobin 7.2(L) 11.7 - 15.5 gm/dL [facility] Blood specimen (specimen) 09/21/2016 9:42 AM EST 09/21/2016 9:51 AM EST Narrative Resulting Agency Comment Spec In Lab Alirio Esparza MD HEMATOLOGY ORDERABL ES Performing Organization Address [facility] Co de Phone Number [facility] [place] [address] * Platelet count (09/21/2016 9:42 AM EST) Platelet 159 145 - 357 x10(3)/mc L [facility] Immature Plt % 1.6 0.0 - 7.4 % [facility] Comment: Limitation of the Immature Platelet Fraction (IPF)-May be less reliable when the platelet count is less than [id number]/uL due to statistical imprecision. The IPF value [...] in a decreased state of production. References: [employer] The Clinical Value of the Immature Platelet Fraction (IPF) in Cell Recovery Document Number 10-1143 12/2010 [employer] The Role of the Immature Platelet Fraction (IPF) in the Differential Diagnosis of Thrombocytopenia, Document [id number] V05 Blood specimen (specimen) 09/21/2016 9:42 AM EST 09/21/2016 9:51 AM EST Narrative Resulting Agency Comment Spec In Lab Alirio Esparza MD HEMATOLOGY ORDERABL ES Performing Organization Address City/[facility]/ZIP Co de Phone Number [facility] [place] [address] * (ABNORMAL) Hematocrit (09/21/2016 9:42 AM EST) Pathologist [facility] Hematocrit 21.6(L) 35.7 - 45.8 % [facility] Comment: This result has been called to MICHELLE ALEJANDRE by Serjio Frazier on 09 21 2016 at 0957, and has been read back. Blood specimen (specimen) 09/21/2016 9:42 AM EST 09/21/2016 9:51 AM EST Narrative Resulting Agency Comment Spec In Lab Alirio Esparza MD HEMATOLOGY ORDERABL ES Performing Organization Address City/[facility]/ZIP Co de Phone Number [facility] [place] [address] * Fibrinogen (09/21/2016 9:42 AM EST) Fibrinogen [...] HEMATOLOGY ORDERABL ES [facility] [place] [address] * (ABNORMAL) BLOOD GAS 2 ARTERIAL (09/21/2016 [...] CARE TEST ORDERABLES Performing Organization Address City/State/[facility] Co de Phone Number [facility] [place] [address] * Surgical Pathology Report (09/21/2016 9:09 AM EST) Final Diagnosis [id number] ?Location: The signing pathologist has (i) examined [...] Esparza MD PATHOLOGY/CYTOLOGY ORDERABLES Performing Organization Address City/[facility]/ZIP Co de Phone Number [place] [phone] * Specimen to Pathology (surgical or derm) (09/21/2016 9:09 AM EST) AP Specimen 09/21/2016 9:09 AM EST 09/21/2016 9:09 AM EST Narrative [facility] - 09/21/2016 9:09 AM EST Specimen requisition ordered. ??Separate Pathology report to follow Alirio Esparza MD PATHOLOGY/CYTOLOGY ORDERABLES Performing Organization Address City/[facility] [place] [address] * (ABNORMAL) BLOOD GAS 2 ARTERIAL (09/21/2016 [...] OF CARE TEST ORDERABLES Performing Organization Address City/State/[facility] Phone Number [facility] [place] [address] * (ABNORMAL) BLOOD GAS 2 ARTERIAL (09/21/2016 [...] [facility] Temp Art 35.6 Celsius [facility] Blood specimen (specimen) 09/21/2016 8:18 AM EST 09/21/2016 8:18 AM EST Alirio Esparza MD POINT OF CARE TEST ORDERABLES [facility] [place] [address] * Prepare RBC (09/21/2016 7:05 AM EST) Dispensed? Yes [facility] Blood specimen (specimen) 09/21/2016 7:05 AM EST 09/21/2016 7:02 AM EST Alirio Esparza MD BLOOD BANK PRODUCT ORDERABLES Performing Organization Address City/[facility]/ZIP Co de Phone Number [facility] [place] [address] * POCT Glucose (09/21/2016 6:42 AM EST) Glucose, POC 104 65 - 199 mg/dL [facility] Comment: Supplemental ranges: <140 mg/dL before meals <180 mg/dL all other times of the day Blood specimen (specimen) 09/21/2016 6:42 AM EST 09/21/2016 6:42 AM EST Alirio Esparza MD POINT OF CARE TEST ORDERABLES Performing Organization Address City/[facility] Co de Phone Number [facility] [place] [address] documented in this encounter Visit Diagnoses Not [...] dose on Wed09/21/16 at 1230, Until Discontinued, [place] teeth, Routine Given 09/25/2016 9:40 AM EST [...] at 0600)1600 (Due - Provider: Kendall Martínez [facility]) aspirin chewable tablet 81 mg(Linked Group 1) 81 mg, Oral, DAILY, First dose on Wed09/22/16 at 0900, Until Discontinued, Start on post-op day 1 in the AM., Routine 0817 (Given - Provider: Elsa Miguel RN) 0829 (Given - Provider: Marke Barnes RN) 0942 (Given - Provider: Joselyn [...] dose on Wed09/21/16 at 1230, Until Discontinued, [place] teeth, Routine 0900 (Not Given - Provider: [...] Federico Apple, VALDO)1708 (Given - Provider: Federico Appel RN) 08 (Given - Provider: Marek Barnes [...] Routine documented in this encounter Care Teams Shipping Specialist Relationship Specialty Start Date End Date Deborah Quiroga APRN PCP - General Family Medicine 03/24/16 02/04/23 documented as of this encounter
--- OUTSIDE RECORDS SUMMARY | 2024-05-18 14:07 | XMS_ITS | Encounter Summary ---
Author Organization [facility] [place] [address] Care Team Providers Care Inside Sales Manager Name Role Phone Ashley Quirogan Cornelius ANURAG Primary Care Provider [phone] Reason for Referral * Consultation (Routine) - Specialty Diagnoses / Procedures Referred By Contact Referred To Contact Cardiac Rehabilitation Diagnoses S/P AVR Alirio Esparza MD [facility] [place] [address] Cardiac Rehab, [address] [place] [address] Referral ID Status Reason Start Date Expiration Date V isits Requested Visits Authorized [id number] Consult, Test & Treat 09/25/2016 03/24/2017 36 36 Reason for Visit * Auth/Cert Specialty Diagnoses / Procedures Referred By Contkrystle t Referred To Contact Diagnoses Aortic stenosis Procedures PRO REPLACE AORT VALV, PROSTH VALV @REPLACE AORTIC VALVE, OPEN, W\CPB, W\PROSTHETIC VALVE (WRVU 41.32) Referral ID Status Reason Start Date Expiration Date Visits Re quested Visits Authorized [id number] 1 1 Encounter Details Date Type Department Care Team (Latest Contact Info) Description 09/21/2016 6:08 AM EST - 09/25/2016 4:33 PM EST Hospital Encounter [place] [id number] Alirio Esparza MD Aortic valve stenosis, unspecified [...] Patient Age: 61 y.o. Birthdate: 1955 Language: Uzbek Race: White Ethnicity: Not nor Admit Date: 09/21/2016 Discharge Date: 09/25/2016 Attending Physician: Alirio Esparza MD Follow-up Recommendations for Providers: Please continue routine management of cardiovascular risk factors including blood pressure, lipids,glucose, etc. Please note any changes to medications. Patient to follow-up with PCP, Deborah Quiroga APRN, in 1-2 weeks. Patient to follow-up with Recreational Programs Director, Dr. Antelmo Burrell, in two weeks. Patient to follow-up with Cardiac Surgery, Dr. Alirio Esparza, to be scheduled for before 10/19/2016, with CXR, EKG, and Echo. Inpatient Provider Contact Information: [facility] Section of Cardiac Surgery [facility] [address] FAX [phone] Discharge Diagnoses (Hospital Problems) Primary Diagnoses: Secondary [...] 41.32) performed by Alirio Esparza MD at [facility] MAIN OR ??? Pro aortoplas for supravalv sten N/A 09/21/2016 @AORTOPLASTY FOR SUPRAVALVULAR STENOSIS (WRVU 29.33) performed by Alirio Esparza MD at [facility] MAIN OR Prior To Admission Medications Prescriptions [...] Hospital Course: Purnima Thacker was admitted to [facility] on 09/21/2016 via the Same Day [...] Alirio Esparza and/or the Cardiac Surgery Physician Nursery School Teacher Team may be reached at . [...] Dr. Alirio Jones. You may use a [place] Track or treadmill but avoid any pulling [...] friends, go to a movie, go to christianity, etc. Heavy activities: No hunting, skiing, jogging, [...] the outpatient Phase 2 Cardiac Rehabilitation at [facility]. The patient agrees to a referral to this program. The referral will be sent at discharge and the patient should be contacted by the program within 1- 2 weeks from discharge. Future Appointments and Orders Future Appointments Provider Department Dept Phone 11/20/2016 11:30 AM Markel Borjas MD [facility] [phone] Future Orders Complete By Expires Echocardiogram Transthoracic([facility]) [GUT741 Custom] 10/18/2016 (Approximate) 09/18/2017 Process Instructions: If the Echocardiogram is to be PERFORMED in a location other than [place]--STOP and order [id number], Echocardiogram South/External. Scheduling Instructions: Questions: Is a Bubble Study requested?: No Does the patient have Congenital Heart Disease?: No Does patient require sedation?: None GA rationale: Should this service be billed to the research sponsor?: EKG 12 Lead [EKG1 Custom] 10/18/2016 (Approximate) 09/25/2017 Process Instructions: Scheduling Instructions: Questions: Which location will this be performed?: [place] Is a rhythm strip needed?: No If EKG Reason is Pre-op Evaluation, indicate diagnosis for surgery.: Should this service be billed to the research sponsor?: XR Chest PA & Lateral (Generic) [[id number] Custom] 10/18/2016 (Approximate) 09/25/2017 Process Instructions: Scheduling Instructions: Questions: Where will study be performed?: [facility]- Radiology Portable exam?: No Reason for exam and clinical history: s/p AVReplacement, patch annuloplasty 1 month f/u Other pertinent information: Stat read required?: Date of injury if applicable: Requested Time: Referral to Cardiac Rehab [WUC925 Custom] As directed Process Instructions: If no progress note charted, please enter Clinical details in comments. Scheduling Instructions: Questions: My question or request is: s/p AVR. Cardiac rehab at [facility] Referral to Home Health - at DISCHARGE [MKD0650 CPT(R)] As directed Process Instructions: Scheduling Instructions: Comments: DOCUMENTATION FOR VNA SERVICES (INCLUDING THOSE PATIENTS WITH MEDICARE COVERAGE REQUIRING HOME VNA SERVICES AND/OR HOSPICE SERVICES) PATIENT'S LOCATION: Purnima Magalie Kirstie [address] [place] [phone] (home) No relevant phone numbers on file. Ship'S Pilot's Name: self In discussion with the attending physician, it is certified that this patient is under their care and that they, or a Nurse Practitioner, or Physician Nursery School Teacher who is working directly with them, [...] for services as follows: HOME HEALTH AGENCY: [facility] PHONE: [phone] FAX: [phone] RN orders: Cardiopulmonary assessment, incisional assessment, assess [...] issues please call the Cardiac SurgeryOffice at [phone] FOR MEDICARE ONLY: In discussion with the [...] AFTER 09/30/16 Signed: Crispin Aranda PA-C 09/25/2016 [facility] Section of Cardiac Surgery [facility] [phone] FAX [phone] Date: 09/25/2016 CC: ANURAG Alford Caryn E, APRN [address] [place] [address] documented in this encounter Discharge Instructions * [...] Alirio Esparza and/or the Cardiac Surgery Physician Nursery School Teacher Team may be reached at . [...] Dr. Alirio Jones. You may use a [place] Track or treadmill but avoid any pulling [...] friends, go to a movie, go to christianity, etc. Heavy activities: No hunting, skiing, jogging, [...] the outpatient Phase 2 Cardiac Rehabilitation at [facility]. The patient agrees to a referral to [...] PM EST Cardiac Surgery Progress Note: ID: [id number] S/p AVR, patch aortoplasty POD#2. PMH of [...] Gas) No results found for: PHART, PO2ART, [id number] Assessment/Plan: TPW out this am. (+) BM. [...] Signed: Crispin Aranda PA-C 09/24/2016 Team pager: [phone]; [phone] after 5pm [facility] Section of Cardiac Surgery * Leonor Henson, SUPERVISOR BEATER ROOM - 09/23/2016 10:48 AM EST Cardiac Surgery Progress Note: ID: [id number] s/p AVR, patch aortoplasty POD#2. PMH of [...] Gas) No results found for: PHART, PO2ART, [id number] Assessment/Plan: s/p AVR, patch aortoplasty POD#2. PMH of Neutropenia, HLD, HTN, Depression, obesity, . Transferred from [facility] yesterday and doing well. Pathway. [...] Surgeon on rounds. Signed: Leonor Henson APRN [facility] Section of Cardiac Surgery Date: 09/23/2016 * Nico Palacios PA - 09/22/2016 9:56 AM EST Cardiac Surgery Progress Note: ID: [id number] s/p AVR, patch aortoplasty POD#1. PMH of [...] NT, ND, soft. Ext: Moves all extremities. [place], well perfused. Incisions: C/D/I Tubes/Lines/Drains: PIV, leanna, [...] Attending Surgeon on rounds. Signed: EKATERINA KIM [facility] Section of Cardiac Surgery Date: 09/22/2016 [...] ready for surgery. Source Note - Alirio sEparza MD - 09/21/2016 7:10 AM EST Mrs. [...] with outpatient services Lalitha Cohen SPTA Pager: [phone] Inpatient Physical Therapy Patient status, treatment interventions, and goals discussed with student. I am in agreement with all details and associated flowsheet rows as documented and was present for all aspects of the patient treatment session. Nerykatrina Jaramillo, [facility] Pager [phone] Problem: Acute Rehab Services Goal & Intervention Plan Goal: Bed Mobility Goal Stand Alone Therapy Goal Outcome: Ongoing (Interventions Implemented as Appropriate) 09/22/16 16109/25/16 09 Bed Mobility Goal Bed Mobility Goal, Time to Achieve 4 days -- Bed Mobility Goal, Activity Type scoot/bridge;supine to sit/sit to supine -- Bed Mobility Goal, [place] Level independent -- Bed Mobility Goal, Additional [...] Achieve 4 days -- Gait Training Goal, [place] Level independent -- Gait Training Goal, Distance [...] assist, home with home health [facility] Pager: [phone] Inpatient Physical Therapy Patient status, treatment interventions, and goals discussed with student. I am in agreement with all details and associated flowsheet rows as documented and was present for all aspects of the patient treatment session. Nery Jaramillo, [facility] Pager [phone] Problem: Acute Rehab Services Goal & Intervention Plan Goal: Bed Mobility Goal Stand Alone Therapy Goal Outcome: Ongoing (Interventions Implemented as Appropriate) 09/22/16 16109/23/16 1412 Bed Mobility Goal Bed Mobility Goal, Time to Achieve 4 days -- Bed Mobility Goal, Activity Type scoot/bridge;supine to sit/sit to supine -- Bed Mobility Goal, [place] Level independent -- Bed Mobility Goal, Additional [...] Achieve 4 days -- Gait Training Goal, [place] Level independent -- Gait Training Goal, Distance [...] days -- Transfer Training Goal, Activity Type sun-zh-jdtdq/fvoru-ep-cbz;qnr-pc-srbxj/aftlw-zm-nun -- Transfer Train Goal, [place] Level independent -- Transfer Training Goal, Additional Goal abides sternal precautions -- Transfer Training Goal, Outcome -- goal met * Consult Note - Jana Crenshaw RN - 09/23/2016 9:41 AM EST [facility] CARDIAC REHABILITATION Purnima Thacker was seen today regarding participation in the outpatient Phase 2 Cardiac Rehabilitation at [facility]. The patient agrees to a referral to [...] Another Service: (cardiac rehab) NICOLE HERNANDEZ, PT Pager:[phone] Inpatient Physical Therapy Problem: Acute Rehab Services Goal & Intervention Plan Goal: Bed Mobility Goal Stand Alone Therapy Goal Outcome: Ongoing (Interventions Implemented as Appropriate) 09/22/16 1611 Bed Mobility Goal Bed Mobility Goal, Time to Achieve 4 days Bed Mobility Goal, Activity Type scoot/bridge;supine to sit/sit to supine Bed Mobility Goal, [place] Level independent Bed Mobility Goal, Additional Goal able to abide sternal precautions during transfers Goal: Gait Training Goal Stand Alone Therapy Goal Outcome: Ongoing (Interventions Implemented as Appropriate) 09/22/16 1611 Gait Training Goal Gait Training Goal, Date Established 09/22/16 Gait Training Goal, Time to Achieve 4 days Gait Training Goal, [place] Level independent Gait Training Goal, Distance to Achieve ascend and descends 2 steps independently Goal: Goal Transfer Training Stand Alone Therapy Goal Outcome: Ongoing (Interventions Implemented as Appropriate) 09/22/16 1611 Goal Transfer Training Transfer Training Goal, Time to Achieve 4 days Transfer Training Goal, Activity Type dwk-ov-yffut/tmxqp-ds-dtd;xfi-pj-cevtu/zpddt-rg-qwe Transfer Train Goal, [place] Level independent Transfer Training Goal, Additional Goal [...] of completing AD's at home, chooses her mvjfjq-je-qzv, Martha Thacker (home) for her [facility], 2nd choice in friend, Nitesh Leroy [place], [place] Current Coping/Education/Information Needs: patient sitting up [...] who live close by, [place], and her vfpcjz-mg-inb Martha Thacker who she has chosen to be her DPOAH. Also has a friend Nitesh Leroy who lives in [place], [place], also her DPOAH choice. Behavioral Health History: none on file in [facility] Substance Use/Abuse: none on file in [facility] Other Pertinent/Service Specific Information: none Health/Prescription Coverage: Primary Insurance: [employer] Secondary Insurance: none Prescription Coverage: yes, per patient no issues Preferred Pharmacy: ?? Other: none Primary Care Provider: Deborah Quiroga, SUPERVISOR BEATER ROOM [phone] Patient/Caregiver Goals of Treatment: per medical team recommendations at discharge for CT surgery Potential Needs for Transition of Care: Rehab/SNF: TBD Home Health: TBD DME: no Dialysis: no Community Resources: non3 Transportation: ride home with a friend Other: none Anticipated Barriers to Discharge/Special Considerations: none anticipated at this time Plan: patient will need VNA services at discharge. The patient/sales donor recruitment representative has been provided a list of Home Health Agencies/DME vendors which servetheir preferred geographic area. A letter describing our affiliations was reviewed with them and they were educated about their right to choose where referrals are placed. Patient requests referral to: [facility]. PHONE: [phone] FAX: [phone] Expected date of discharge: Fri/Sat? CM called VNA to confirm referral, talked with VALDO Bunn/intake who stated she was familiar w/patient & would monitor her progress through curaspan. Referral routed to the Linux Developer for matching with agency/vendor and to provide any required information. A member of the Care Management team will continue to monitor progress, follow for continuity of care and assist with transition of care planning. Amanda Moreno RN Pager: [phone] * Op Note - Alirio Esparza MD - 09/21/2016 12:53 PM EST 09/23/2016 Purnima Thacker 1955 [id number] Preoperative Diagnosis: Symptomatic aortic stenosis Postoperative Diagnosis: Symptomatic aortic stenosis Procedure: Aortic valve replacement: Bovine Pericardial 25 mm Surgeon: Alirio Esparza M.D. Nursery School Teacher: Philip BALL Anesthesia: General endotracheal anesthesia [...] Operative Note Patient Name: Purnima Thacker : [id number] MR#: [id number] Case Date: 09/21/2016 Surgeon: Surgeon(s) and Role: * Alirio Esparza MD - Primary * Nico Palacios PA - Physician Nursery School Teacher Preoperative diagnosis: Postoperative diagnosis: Procedure(s) (LRB): [...] PM EDT Hospital Encounter [place] [phone] Markel Borjas MD [facility] [address] [place] [address] 05/29/2024 2:00 PM EDT - 05/29/2024 2:43 PM EDT Surgery [place] [phone] Markel Borjas MD [facility] [address] [place] [address] (OSC MSURG) BONE MARROW BIOPSY AND ASPIRATION; DIAGNOSTIC (WRVU 1.44) 06/23/2024 2:00 PM EST Office Visit [place]ology [place] [phone] Markel Borjas MD [facility] [place] [address] 03/01/2025 4:15 PM EDT Office Visit Dermatology at [address] [place] [phone] Marek Bonilla MD [address], [place] [address] Scheduled Orders Name Type Priority Associated Diagnoses [...] IMPLANTABLE DEVICES SCAN 09/26/2016 12:00 AM EST WOOL HAT HYDRAULICKER SCAN 09/26/2016 12:00 AM EST POTASSIUM Routine [...] SCAN EXT O RDR/RSLT * SCAN DOC: WOOL HAT HYDRAULICKER (09/26/2016 12:00 AM EST) Anatomical Region Laterality Modality Other Narrative 09/26/2016 12:00 AM EST Ordered by an unspecified provider. Scanning Provider MEDIA MGR SCAN EXT O RDR/RSLT * Potassium (09/25/2016 4:32 AM EST) Potassium 4.4 3.5 - 5.0 mmol/L [facility] [...] [facility] [place] [address] * (ABNORMAL) Differential, Automated (09/24/2016 9:56 AM EST) Neutrophil % 76.8 % [facility] Neutrophil Absolute 7.79(H) 1.70 - 6.10 x10(3)/mc L [facility] Lymph % 11.1 % [facility] Lymphocytes Abs 1.1 0.9 - 3.2 x10(3)/ L [facility] Monocyte % 8.5 % [facility] Monocyte Abs 0.9 0.3 - 0.9 x10(3)/[facility] Eos % 0.5 % [facility] Eosinophils Abs 0.0 0.0 - 0.4 x10(3)/[facility] Basophil % 0.2 % [facility] Baso Absolute 0.0 0.0 - 0.1 x10(3)/ L [facility] Immature Gran % 2.90 % [facility] Comment: Immature granulocytes(IG's)percentage and absolute count will include metamyelocytes, myelocytes, and promyelocytes. Blood smears from CBCs yielding IG's will be scanned manually for concordance. If this scan disagrees with the automated IG or if promyelocytes are noted, a manual differential will be performed. Immature Gran Absolute 0.29(H) 0.00 - 0.04 x10(3)/ L [facility] Blood specimen (specimen) 09/24/2016 9:56 AM EST 09/24/2016 10:04 AM EST Narrative Resulting Agency Comment Spec In Lab Alirio Esparza MD HEMATOLOGY ORDERABL ES Performing Organization Address City/[facility]/ZIP Co de Phone Number [facility] [place] [address] * (ABNORMAL) Hemogram (09/24/2016 9:56 AM EST) [facility] White Blood Cell 10.1(H) 4.0 - 9.5 x10(3)/mc L [facility] Red Blood Cell 2.87(L) 4.00 - 5.21 x10(6)/mc L [facility] Hemoglobin 9.4(L) 11.7 - 15.5 gm/dL [facility] Hematocrit 28.3(L) 35.7 - 45.8 % [facility] Mean Cell Volume 98.6(H) 82.6 - 94.4 fL [facility] Mean Cell Hemoglobin 32.8(H) 27.1 - 32.0 pg [facility] Mean Cell Hemoglobin Concentration 33.2 31.7 - 35.0 gm/dL [facility] Platelet 141(L) 145 - 357 x10(3)/mc L [facility] RDW Standard Deviation 45.0 37.0 - 46.0 [facility] RDW coefficient of variation 12.6 11.5 - 14.1 % [facility] Mean Platelet Volume 9.4 7.6 - 12.9 fL [facility] NRBC% auto 1.1 % [facility] NRBC Absolute 0.110(H) 0.000 - 0.000 x10(3)/mc L [facility] Blood specimen (specimen) 09/24/2016 9:56 AM EST 09/24/2016 10:04 AM EST Narrative Resulting Agency Comment Spec In Lab Alirio Esparza MD HEMATOLOGY ORDERABL ES [facility] [place] [address] * (ABNORMAL) Basic Metabolic Panel (non-fasting) (09/24/2016 9:56 AM EST) Glucose 111 65 - 199 mg/dL [facility] Comment:Diabetes: >=200 mg/d L plus symptoms Blood Urea Nitrogen 23(H) 8 - 18 mg/dL [facility] Comment:result rechecked-ART Creatinine 0.89 0.70 - 1.20 mg/dL [facility] Comment: Please note that the pediatric reference intervals supplied above were not validated at [facility]. Results from pediatric patients should be interpreted in conjunction to the patient's age, height and muscle mass. Sodium 138 135 - 145 mmol/L [facility] [...] Chloride 98 98 - 107 mmol/L [facility] Carbon Dioxide 26 22 - 31 mmol/L [facility] Anion Gap 14 5 - 15 mmol/L [facility] Calcium 9.1 8.5 - 10.5 mg/dL [facility] [...] the following links into your internet browser. [email or web address] Blood specimen (specimen) 09/24/2016 9:56 AM EST 09/24/2016 10:04 AM EST Narrative Resulting Agency Comment Spec In Lab Alirio Esparza MD CHEMISTRY ORDERABLE S [facility] [place] [address] * XR Chest PA & Lateral (Generic) [...] Potassium 4.5 3.5 - 5.0 mmol/L [facility] [...] ORDERABLE S Performing Organization Address [facility] Co de Phone Number [facility] [place] [address] * POCT Glucose (09/22/2016 8:17 AM EST) Glucose, POC 131 65 - 199 mg/dL [facility] Comment: Supplemental ranges: <140 mg/dL before meals <180 mg/dL all other times of the day Blood specimen (specimen) 09/22/2016 8:17 AM EST 09/22/2016 8:17 AM EST Alirio Esparza MD POINT OF CARE TEST ORDERABLES Performing Organization Address [facility] Phone Number [facility] [place] [address] * POCT Glucose (09/22/2016 4:01 AM EST) Glucose, POC 135 65 - 199 mg/dL [facility] Comment: Supplemental ranges: <140 mg/dL before meals <180 mg/dL all other times of the day Blood specimen (specimen) 09/22/2016 4:01 AM EST 09/22/2016 4:01 AM EST Alirio Esparza MD POINT OF CARE TEST ORDERABLES Performing Organization Address [facility] Co de Phone Number [facility] [place] [address] * Scan, Peripheral Blood (09/22/2016 4:00 AM EST) Plat estimate Normal [facility] RBC Morphology Abnormal [facility] Macrocyte 1-5 /HPF [facility] Plat, Giant Less than 1 /HPF [facility] Blood specimen (specimen) 09/22/2016 4:00 AM EST 09/22/2016 4:34 AM EST Narrative Resulting Agency Comment Spec In Lab Alirio Esparza MD HEMATOLOGY ORDERABL ES Performing Organization Address [facility]/ZIP Co de Phone Number [facility] [place] [address] * Electrolytes panel (09/22/2016 4:00 AM EST) [facility] Sodium 145 135 - 145 mmol/L [facility] Potassium 4.4 3.5 - 5.0 mmol/L [facility] Comment: Please note: ??Patients with WBC >100,000 may have falsely elevated Potassium levels. ??For accurate Potassium quantification in these patients send serum separator tube (gold top) for subsequent determinations. ??Contact the Clinical Chemistry Laboratory if there are any questions. Chloride 107 98 - 107 mmol/L [facility] Carbon Dioxide 24 22 - 31 mmol/L [facility] Anion Gap 14 5 - 15 mmol/L [facility] Blood specimen (specimen) Venous Draw / Unknown 09/22/2016 4:00 AM EST 09/22/2016 4:34 AM EST Narrative Resulting Agency Comment Spec In Lab Alirio Esparza MD CHEMISTRY ORDERABLE S Performing Organization Address [facility] Co de Phone Number [facility] [place] [address] * (ABNORMAL) Differential, Automated (09/22/2016 4:00 AM EST) [facility] Neutrophil % 70.9 % [facility] Neutrophil Absolute 5.33 1.70 - 6.10 x10(3)/mc L [facility] Lymph % 9.1 % [facility] Lymphocytes Abs 0.7(L) 0.9 - 3.2 x10(3)/mc L [facility] Monocyte % 18.0 % [facility] Monocyte Abs 1.4(H) 0.3 - 0.9 x10(3)/mc L [facility] Eos % 0.0 % [facility] Eosinophils Abs 0.0 0.0 - 0.4 x10(3)/mc L [facility] Basophil % 0.1 % [facility] Baso Absolute 0.0 0.0 - 0.1 x10(3)/[facility] Immature Gran % 1.90 % [facility] Comment: Immature granulocytes(IG's)percentage and absolute count will include metamyelocytes, myelocytes, and promyelocytes. Blood smears from CBCs yielding IG's will be scanned manually for concordance. If this scan disagrees with the automated IG or if promyelocytes are noted, a manual differential will be performed. Immature Gran Absolute 0.14(H) 0.00 - 0.04 x10(3)/[facility] Blood specimen (specimen) 09/22/2016 4:00 AM EST 09/22/2016 4:34 AM EST Narrative Resulting Agency Comment Spec In Lab Alirio Esparza MD HEMATOLOGY ORDERABL ES Performing Organization Address City/State/[facility] Co de Phone Number [facility] [place] [address] * (ABNORMAL) Hemogram (09/22/2016 4:00 AM EST) White Blood Cell 7.5 4.0 - 9.5 x10(3)/[facility] LABORATORY Red Blood Cell 2.93(L) 4.00 - 5.21 x10(6)/[facility] LABORATORY Hemoglobin 9.2(L) 11.7 - 15.5 gm/dL [facility] Hematocrit 28.0(L) 35.7 - 45.8 % [facility] Mean Cell Volume 95.6(H) 82.6 - 94.4 fL [facility] Mean Cell Hemoglobin 31.4 27.1 - 32.0 pg [facility] Mean Cell Hemoglobin Concentration 32.9 31.7 - 35.0 gm/dL [facility] Platelet 161 145 - 357 x10(3)/[facility] LABORATORY RDW Standard Deviation 44.0 37.0 - 46.0 fL [facility] RDW coefficient of variation 12.6 11.5 - 14.1 % [facility] Mean Platelet Volume 9.3 7.6 - 12.9 fL [facility] NRBC% auto 0.3 % [facility] NRBC Absolute 0.020(H) 0.000 - 0.000 x10(3)/mc L [facility] Blood specimen (specimen) 09/22/2016 4:00 AM EST 09/22/2016 4:34 AM EST Narrative Resulting Agency Comment Spec In Lab Alirio Esparza MD HEMATOLOGY ORDERABL ES [facility] [place] [address] * (ABNORMAL) Cardiac Enzymes (09/22/2016 4:00 AM EST) Troponin-T 0.13(H) <=0.03 ng/mL [facility] Comment: 0.03 ng/mL: Represents the 99th percentile upper reference limit for normals. >0.03 ng/mL: Elevated cardiac troponin T level indicative of myocardial damage. Diagnosis of acute, evolving or recent VT requires a typical rise and gradual fall [...] Kinase 338(H) 0 - 160 unit/L [facility] Blood specimen (specimen) 09/22/2016 4:00 AM EST 09/22/2016 4:34 AM EST Narrative Resulting Agency Comment Spec In Lab Alirio Esparza MD CHEMISTRY ORDERABLE S Performing Organization Address [facility] Co de Phone Number [facility] [place] [address] * (ABNORMAL) Glucose, fasting (09/22/2016 4:00 AM EST) Glucose Fasting 137(H) 65 - 99 mg/dL [facility] Comment: ?Fasting* Glucose Interpretive Criteria [...] ORDERABLE S Performing Organization Address [facility] Co de Phone Number [facility] [place] [address] * (ABNORMAL) Creatinine (09/22/2016 4:00 AM EST) Creatinine 0.69(L) 0.70 - 1.20 mg/dL [facility] [...] the following links into your internet browser. [email or web address] Blood specimen (specimen) 09/22/2016 4:00 AM EST 09/22/2016 4:34 AM EST Narrative Resulting Agency Comment Spec In Lab Alirio Esparza MD CHEMISTRY ORDERABLE S Performing Organization Address [facility] Co de Phone Number [facility] [place] [address] * BUN (09/22/2016 4:00 AM EST) Blood Urea Nitrogen 10 8 - 18 mg/dL [facility] Blood specimen (specimen) 09/22/2016 4:00 AM EST 09/22/2016 4:34 AM EST Narrative Resulting Agency Comment Spec In Lab Alirio Esparza MD CHEMISTRY ORDERABLE S Performing Organization Address [facility] Co de Phone Number [facility] [place] [address] * POCT Glucose (09/21/2016 9:59 PM EST) Glucose, POC 146 65 - 199 mg/dL [facility] Comment: Supplemental ranges: <140 mg/dL before meals <180 mg/dL all other times of the day Blood specimen (specimen) 09/21/2016 9:59 PM EST 09/21/2016 9:59 PM EST Alirio Esparza MD POINT OF CARE TEST ORDERABLES Performing Organization Address [facility] Co de Phone Number [facility] [place] [address] * POCT Glucose (09/21/2016 7:26 PM EST) Glucose, POC 152 65 - 199 mg/dL [facility] Comment: Supplemental ranges: <140 mg/dL before meals <180 mg/dL all other times of the day Blood specimen (specimen) 09/21/2016 7:26 PM EST 09/21/2016 7:26 PM EST Alirio Esparza MD POINT OF CARE TEST ORDERABLES [facility] [place] [address] * POCT Glucose (09/21/2016 6:00 PM EST) Glucose, POC 146 65 - 199 mg/dL [facility] Comment: Supplemental ranges: <140 mg/dL before meals <180 mg/dL all other times of the day Blood specimen (specimen) 09/21/2016 6:00 PM EST 09/21/2016 6:00 PM EST Alirio Esparza MD POINT OF CARE TEST ORDERABLES Performing Organization Address City/State/[facility] Co de Phone Number [facility] [place] [address] * (ABNORMAL) BLOOD GAS 2 ARTERIAL (09/21/2016 4:42 PM EST) pH, Arterial 7.35(L) 7.35 - 7.45 [facility] PCO2, Arterial 48(H) 35 - 45 mmHg [facility] PO2, Arterial 108(H) 85 - 104 mmHg [facility] Bicarbonate, Arterial 26.0 20.0 - 26.0 mmol/L [facility] Base Excess, Arterial 0.5 -3.0 - 3.0 mmol/L [facility] Hgb Blood Gas 10.4(L) 11.7 - 15.5 gm/dL [facility] Oxyhemoglobin, Arterial 96.2 94.0 - 97.0 % [facility] Carboxyhemoglob in, Arterial 0.0 % [facility] Comment: Nonsmokers: 0.5-1.5% COHB Smokers: Variable, but usually less than 10% Toxic: 20-30% COHB Lethal: Greater than 60% COHB Methemoglobin, Arterial 0.7 <=1.5 % [facility] Na Whole Blood 139 135 - 145 mmol/L [facility] K Whole Blood 4.2 3.5 - 5.0 mmol/L [facility] Comment: Please note: Patients with WBC >100,000 may have falsely elevated Potassium levels. Contact the Clinical Chemistry Laboratory if there are any questions. ICa Whole Blood 1.13(L) 1.15 - 1.33 mmol/L [facility] Comment: Note: ??Total bilirubin higher than 20 mg/dL may lead to falsely low ionized calcium. CL Whole Blood 106 98 - 107 mmol/L [facility] Gluc Whole Bld 147 65 - 199 mg/dL [facility] Comment:Diabetes: >=200 mg/d L plus symptoms. Lactate WB 1.2 0.5 - 2.2 mmol/L [facility] FIO2 Art 40 % [facility] PF Ratio Art 270 [facility] Blood specimen (specimen) 09/21/2016 4:42 PM EST 09/21/2016 4:42 PM EST Alirio Esparza MD POINT OF CARE TEST ORDERABLES [facility] [place] [address] * POCT Glucose (09/21/2016 4:07 PM EST) Glucose, POC 150 65 - 199 mg/dL [facility] Comment: Supplemental ranges: <140 mg/dL before meals <180 mg/dL all other times of the day Blood specimen (specimen) 09/21/2016 4:07 PM EST 09/21/2016 4:07 PM EST Alirio Esparza MD POINT OF CARE TEST ORDERABLES Performing Organization Address [facility] Phone Number [facility] [place] [address] * (ABNORMAL) Hemoglobin (09/21/2016 4:05 PM EST) Hemoglobin 9.9(L) 11.7 - 15.5 gm/dL [facility] Blood specimen (specimen) 09/21/2016 4:05 PM EST 09/21/2016 4:20 PM EST Narrative Resulting Agency Comment Spec In Lab Alirio Esparza MD HEMATOLOGY ORDERABL ES Performing Organization Address [facility] Phone Number [facility] [place] [address] * Potassium (09/21/2016 4:05 PM EST) [facility] Potassium 4.6 3.5 - 5.0 mmol/L [facility] [...] ORDERABLE S Performing Organization Address [facility] Co de Phone Number [facility] [place] [address] * POCT Glucose (09/21/2016 2:52 PM EST) Glucose, POC 117 65 - 199 mg/dL [facility] Comment: Supplemental ranges: <140 mg/dL before meals <180 mg/dL all other times of the day Blood specimen (specimen) 09/21/2016 2:52 PM EST 09/21/2016 2:52 PM EST Alirio Esparza MD POINT OF CARE TEST ORDERABLES Performing Organization Address [facility] de Phone Number [facility] [place] [address] * POCT Glucose (09/21/2016 1:51 PM EST) Glucose, POC 108 65 - 199 mg/dL [facility] Comment: Supplemental ranges: <140 mg/dL before meals <180 mg/dL all other times of the day Blood specimen (specimen) 09/21/2016 1:51 PM EST 09/21/2016 1:51 PM EST Alirio Esparza MD POINT OF CARE TEST ORDERABLES Performing Organization Address [facility] Phone Number [facility] [place] [address] * POCT Glucose (09/21/2016 12:54 PM EST) Glucose, POC 128 65 - 199 mg/dL [facility] Comment: Supplemental ranges: <140 mg/dL before meals <180 mg/dL all other times of the day Blood specimen (specimen) 09/21/2016 12:54 PM EST 09/21/2016 12:54 PM EST Alirio Esparza MD POINT OF CARE TEST ORDERABLES Performing Organization Address [facility] Phone Number [facility] [place] [address] * EKG 12 Lead (09/21/2016 12:26 PM EST) Ventricular rate 87 BPM MUSE SYSTEM Atrial Rate 87 BPM MUSE SYSTEM P-R Interval 256 ms MUSE SYSTEM QRS Duration 90 ms MUSE SYSTEM Q-T Interval 406 ms MUSE SYSTEM QTC Calculated (Bezet) 488 ms MUSE SYSTEM Calculated P [place] 24 degrees MUSE SYSTEM Calculated R [place] 21 degrees MUSE SYSTEM Calculated T [place] -5 degrees MUSE SYSTEM INTERPRETATION Sinus rhythm with 1st degree A-V block Nonspecific T wave abnormality Prolonged QT Abnormal ECG When compared with ECG of 18-OCT-2016 11:43, [place] interval has increased T wave inversion now [...] course of the esophagus and below the [id number]. There is a right IJ PA catheter [...] the course of theesophagus and below the [id number]. There is a right IJ PA catheter [...] pH, Arterial 7.41 7.35 - 7.45 [facility] PCO2, Arterial 42 35 - 45 mmHg [facility] PO2, Arterial 356(H) 85 - 104 mmHg [facility] Bicarbonate, Arterial 26.2(H) 20.0 - 26.0 mmol/L [facility] Base Excess, Arterial 1.6 -3.0 - 3.0 mmol/L [facility] Hgb Blood Gas 10.7(L) 11.7 - 15.5 gm/dL [facility] Oxyhemoglobin, Arterial 98.1(H) 94.0 - 97.0 % [facility] Carboxyhemoglob in, Arterial 0.3 % [facility] Comment: Nonsmokers: 0.5-1.5% COHB Smokers: Variable, but usually less than 10% Toxic: 20-30% COHB Lethal: Greater than 60% COHB Methemoglobin, Arterial 0.8 <=1.5 % [facility] Na Whole Blood 140 135 - 145 mmol/L [facility] K Whole Blood 3.8 3.5 - 5.0 mmol/L [facility] Comment: Please note: Patients with WBC >100,000 may have falsely elevated Potassium levels. Contact the Clinical Chemistry Laboratory if there are any questions. ICa Whole Blood 1.15(L) 1.15 - 1.33 mmol/L [facility] Comment: Note: ??Total bilirubin higher than 20 mg/dL may lead to falsely low ionized calcium. CL Whole Blood 106 98 - 107 mmol/L [facility] Gluc Whole Bld 135 65 - 199 mg/dL [facility] Comment:Diabetes: >=200 mg/d L plus symptoms. Lactate WB 2.2 0.5 - 2.2 mmol/L [facility] FIO2 Art 100 % [facility] PF Ratio Art 356 [facility] Blood specimen (specimen) 09/21/2016 12:20 PM EST 09/21/2016 12:20 PM EST Alirio Esparza MD POINT OF CARE TEST ORDERABLES [facility] [place] [address] * (ABNORMAL) BLOOD GAS 2 ARTERIAL (09/21/2016 10:54 AM EST) pH, Arterial 7.43 7.35 - 7.45 [facility] PCO2, Arterial 40 35 - 45 mmHg [facility] PO2, Arterial 297(H) 85 - 104 mmHg [facility] Bicarbonate, Arterial 26.0 20.0 - 26.0 mmol/L [facility] Base Excess, Arterial 1.6 -3.0 - 3.0 mmol/L [facility] Hgb Blood Gas 8.6(L) 11.7 - 15.5 gm/dL [facility] Oxyhemoglobin, Arterial 98.6(H) 94.0 - 97.0 % [facility] Carboxyhemoglob in, Arterial 0.5 % [facility] Comment: Nonsmokers: 0.5-1.5% COHB Smokers: Variable, but usually less than 10% Toxic: 20-30% COHB Lethal: Greater than 60% COHB Methemoglobin, Arterial 0.3 <=1.5 % [facility] Na Whole Blood 134(L) 135 - 145 mmol/L [facility] K Whole Blood 4.5 3.5 - 5.0 mmol/L [facility] Comment: Please note: Patients with WBC >100,000 may have falsely elevated Potassium levels. Contact the Clinical Chemistry Laboratory if there are any questions. ICa Whole Blood 1.16 1.15 - 1.33 mmol/L [facility] Comment: Note: ??Total bilirubin higher than 20 mg/dL may lead to falsely low ionized calcium. CL Whole Blood 104 98 - 107 mmol/L [facility] Gluc Whole Bld 240(H) 65 - 199 mg/dL [facility] Comment:Diabetes: >=200 mg/d L plus symptoms. Lactate WB 2.4(H) 0.5 - 2.2 mmol/L [facility] FIO2 Art 95 % [facility] Flow Art 0.7 LPM [facility] PF Ratio Art 313 [facility] Temp Art 36.7 Celsius [facility] Blood specimen (specimen) 09/21/2016 10:54 AM EST 09/21/2016 10:54 AM EST Alirio Esparza MD POINT OF CARE TEST ORDERABLES Performing Organization Address [facility] [place] [place] [address] * Thrombin time (09/21/2016 10:50 AM EST) Thrombin Time 19 15 - 20 sec [facility] Comment: A prolongation in the [...] ORDERABLE S Performing Organization Address [facility]/ZIP Co de Phone Number [facility] [place] [address] * Fibrinogen (09/21/2016 10:50 AM EST) Fibrinogen 228 180 - 510 mg/dL [facility] Comment: Called by: JONNATHAN, Read back by: MICHELLE ANTAL_, Date/Time:09/21/16 11:11. A fibrinogen level >100 mg/dL is adequate for hemostasis in most patients without underlying bleeding disorders. Blood specimen (specimen) 09/21/2016 10:50 AM EST 09/21/2016 10:56 AM EST Narrative Resulting Agency Comment Spec In Lab Luis Enrique Quarles MD HEMATOLOGY ORDERABLE S Performing Organization Address [facility] Co de Phone Number [facility] [place] [address] * APTT (09/21/2016 10:50 AM EST) Partial Thromboplastin Time 32 25 - 35 sec [facility] Comment: The recommended therapeutic range for full dose, unfractionated heparin at [facility] is 80 ? 114 seconds. The use of the anti-Xa (heparin) level rather than the PTT is recommended for monitoring anticoagulation intensity in critically ill patients receiving unfractionated heparin by continuous IV infusion. Blood specimen (specimen) 09/21/2016 10:50 AM EST 09/21/2016 10:56 AM EST Narrative Resulting Agency Comment Spec In Lab Luis Enrique Quarles MD HEMATOLOGY ORDERABLE S Performing Organization Address [facility] de Phone Number [facility] [place] [address] * (ABNORMAL) Prothrombin Time (09/21/2016 10:50 AM EST) Prothrombin Time 18.7(H) 12.0 - 15.0 sec [facility] Comment: An INR [...] Normalization Ratio 1.5(H) 0.9 - 1.1 [facility] Blood specimen (specimen) 09/21/2016 10:50 AM EST 09/21/2016 10:56 AM EST Narrative Resulting Agency Comment Spec In Lab Luis Enrique Quarles MD HEMATOLOGY ORDERABLE S [facility] [place] [address] * (ABNORMAL) Hemogram (09/21/2016 10:50 AM EST) White Blood Cell 14.7(H) 4.0 - 9.5 x10(3)/mc L [facility] Red Blood Cell 2.40(L) 4.00 - 5.21 x10(6)/mc L [facility] Hemoglobin 7.9(L) 11.7 - 15.5 gm/dL [facility] Hematocrit 23.2(L) 35.7 - 45.8 % [facility] Comment: This result has been called to MICHELLE GRIGSBY by ASHU MORENO on 09 21 2016 at 1102, and has been read back. Mean Cell Volume 96.7(H) 82.6 - 94.4 fL [facility] Mean Cell Hemoglobin 32.9(H) 27.1 - 32.0 pg [facility] Mean Cell Hemoglobin Concentration 34.1 31.7 - 35.0 gm/dL [facility] Platelet 117(L) 145 - 357 x10(3)/mc L [facility] RDW Standard Deviation 42.6 37.0 - 46.0 fL [facility] RDW coefficient of variation 12.1 11.5 - 14.1 % [facility] Mean Platelet Volume 9.2 7.6 - 12.9 fL [facility] NRBC% auto 0.1 % [facility] NRBC Absolute 0.020(H) 0.000 - 0.000 x10(3)/mc L [facility] Blood specimen (specimen) 09/21/2016 10:50 AM EST 09/21/2016 10:56 AM EST Narrative Resulting Agency Comment Spec In Lab Luis Enrique Quarles MD HEMATOLOGY ORDERABLE S Performing Organization Address City/[facility]/[place] [address] * Prepare Platelets, Apheresis (09/21/2016 10:30 AM EST) Dispensed? Yes [facility] Blood specimen (specimen) 09/21/2016 10:30 AM EST 09/21/2016 10:28 AM EST Alirio Esparza MD BLOOD BANK PRODUCT ORDERABLES Performing Organization Address [facility] [place] [place] [address] * (ABNORMAL) BLOOD GAS 2 ARTERIAL (09/21/2016 10:05 AM EST) pH, Arterial 7.33(L) 7.35 - 7.45 [facility] PCO2, Arterial 54(Critic al) 35 - 45 mmHg [facility] Comment:Noted by electrical and instrumentation manager. PO2, Arterial 218(H) 85 - 104 mmHg [facility] Bicarbonate, Arterial 27.9(H) 20.0 - 26.0 mmol/L [facility] Base Excess, Arterial 2.0 -3.0 - 3.0 mmol/L [facility] Hgb Blood Gas 8.6(L) 11.7 - 15.5 gm/dL [facility] Oxyhemoglobin, Arterial 98.4(H) 94.0 - 97.0 % [facility] Carboxyhemoglo bin, Arterial 0.5 % [facility] Comment: Nonsmokers: 0.5-1.5% COHB Smokers: Variable, but usually less than 10% Toxic: 20-30% COHB Lethal: Greater than 60% COHB Methemoglobin, Arterial 0.3 <=1.5 % [facility] Na Whole Blood 129(L) 135 - 145 mmol/L [facility] K Whole Blood 6.2(Criti gabrielle) 3.5 - 5.0 mmol/L [facility] Comment: Noted by electrical and instrumentation manager. Please note: Patients with WBC >100,000 may have falsely elevated Potassium levels. Contact the Clinical Chemistry Laboratory if there are any questions. ICa Whole Blood 0.95(L) 1.15 - 1.33 mmol/L [facility] Comment: Note: ??Total bilirubin higher than 20 mg/dL may lead to falsely low ionized calcium. CL Whole Blood 100 98 - 107 mmol/L [facility] Gluc Whole Bld 289(H) 65 - 199 mg/dL [facility] Comment:Diabetes: >=200 mg/d L plus symptoms. Lactate WB 2.2 0.5 - 2.2 mmol/L [facility] Temp Art 37.0 Celsius [facility] Blood specimen (specimen) 09/21/2016 10:05 AM EST 09/21/2016 10:05 AM EST Alirio Esparza MD POINT OF CARE TEST ORDERABLES [facility] [place] [address] * (ABNORMAL) BLOOD GAS 2 ARTERIAL (09/21/2016 9:44 AM EST) pH, Arterial 7.22(Criti gabrielle) 7.35 - 7.45 [facility] Comment:Noted by electrical and instrumentation manager. PCO2, Arterial 70(Critica l) 35 - 45 mmHg [facility] Comment:Noted by electrical and instrumentation manager. PO2, Arterial 224(H) 85 - 104 mmHg [facility] Bicarbonate, Arterial 27.8(H) 20.0 - 26.0 mmol/L [facility] Base Excess, Arterial 0.0 -3.0 - 3.0 mmol/L [facility] Hgb Blood Gas 8.7(L) 11.7 - 15.5 gm/dL [facility] Oxyhemoglobin, Arterial 98.5(H) 94.0 - 97.0 % [facility] Carboxyhemoglob in, Arterial 0.6 % [facility] Comment: Nonsmokers: 0.5-1.5% COHB Smokers: Variable, but usually less than 10% Toxic: 20-30% COHB Lethal: Greater than 60% COHB Methemoglobin, Arterial 0.3 <=1.5 % [facility] Na Whole Blood 131(L) 135 - 145 mmol/L [facility] K Whole Blood 5.9(H) 3.5 - 5.0 mmol/L [facility] Comment: Please note: Patients with WBC >100,000 may have falsely elevated Potassium levels. Contact the Clinical Chemistry Laboratory if there are any questions. ICa Whole Blood 1.00(L) 1.15 - 1.33 mmol/L [facility] Comment: Note: ??Total bilirubin higher than 20 mg/dL may lead to falsely low ionized calcium. CL Whole Blood 101 98 - 107 mmol/L [facility] Gluc Whole Bld 227(H) 65 - 199 mg/dL [facility] Comment:Diabetes: >=200 mg/d L plus symptoms. Lactate WB 2.1 0.5 - 2.2 mmol/L [facility] Blood specimen (specimen) 09/21/2016 9:44 AM EST 09/21/2016 9:44 AM EST Alirio Esparza MD POINT OF CARE TEST ORDERABLES Performing Organization Address City/State/[facility] Co de Phone Number [facility] [place] [address] * (ABNORMAL) Hemoglobin (09/21/2016 9:42 AM EST) Hemoglobin 7.2(L) 11.7 - 15.5 gm/dL [facility] Blood specimen (specimen) 09/21/2016 9:42 AM EST 09/21/2016 9:51 AM EST Narrative Resulting Agency Comment Spec In Lab Alirio Esparza MD HEMATOLOGY ORDERABL ES [facility] [place] [address] * Platelet count (09/21/2016 9:42 AM EST) Platelet 159 145 - 357 x10(3)/mc L [facility] Immature Plt % 1.6 0.0 - 7.4 % [facility] Comment: Limitation of the Immature Platelet Fraction (IPF)-May be less reliable when the platelet count is less than 42m116/uL due to statistical imprecision. The IPF value [...] in a decreased state of production. References: [employer] The Clinical Value of the Immature Platelet Fraction (IPF) in Cell Recovery Document Number [id number] 12/2010 [employer] The Role of the Immature Platelet Fraction (IPF) in the Differential Diagnosis of Thrombocytopenia, Document [id number] V012/11/13 P014 Blood specimen (specimen) 09/21/2016 9:42 AM EST 09/21/2016 9:51 AM EST Narrative Resulting Agency Comment Spec In Lab Alirio Esparza MD HEMATOLOGY ORDERABL ES [facility] [place] [address] * (ABNORMAL) Hematocrit (09/21/2016 9:42 AM EST) Hematocrit 21.6(L) 35.7 - 45.8 % [facility] Comment: This result has been called to MICHELLE ALEJANDRE by Serjio Frazier on 09 21 2016 at 0957, and has been read back. Blood specimen (specimen) 09/21/2016 9:42 AM EST 09/21/2016 9:51 AM EST Narrative Resulting Agency Comment Spec In Lab Alirio Esparza MD HEMATOLOGY ORDERABL ES Performing Organization Address [facility] Co de Phone Number [facility] [place] [address] * Fibrinogen (09/21/2016 9:42 AM EST) Fibrinogen 219 180 - 510 mg/dL [facility] Comment: Called by: JONNATHAN, Read back by: MICHELLE ALEJANDRE_, Date/Time:09/21/16 10:03_. A fibrinogen level >100 mg/dL is adequate for hemostasis in most patients without underlying bleeding disorders. Blood specimen (specimen) 09/21/2016 9:42 AM EST 09/21/2016 9:51 AM EST Narrative Resulting Agency Comment Spec In Lab Alirio Esparza MD HEMATOLOGY ORDERABL ES Performing Organization Address [facility] Co de Phone Number [facility] [place] [address] * (ABNORMAL) BLOOD GAS 2 ARTERIAL (09/21/2016 9:10 AM EST) pH, Arterial 7.36 7.35 - 7.45 [facility] PCO2, Arterial 48(H) 35 - 45 mmHg [facility] PO2, Arterial 295(H) 85 - 104 mmHg [facility] Bicarbonate, Arterial 26.0 20.0 - 26.0 mmol/L [facility] Base Excess, Arterial 0.5 -3.0 - 3.0 mmol/L [facility] Hgb Blood Gas 8.0(L) 11.7 - 15.5 gm/dL [facility] Oxyhemoglobin, Arterial 98.3(H) 94.0 - 97.0 % [facility] Carboxyhemoglob in, Arterial 1.0 % [facility] Comment: Nonsmokers: 0.5-1.5% COHB Smokers: Variable, but usually less than 10% Toxic: 20-30% COHB Lethal: Greater than 60% COHB Methemoglobin, Arterial 0.3 <=1.5 % [facility] Na Whole Blood 135 135 - 145 mmol/L [facility] K Whole Blood 5.4(H) 3.5 - 5.0 mmol/L [facility] Comment: Please note: Patients with WBC >100,000 may have falsely elevated Potassium levels. Contact the Clinical Chemistry Laboratory if there are any questions. ICa Whole Blood 0.93(L) 1.15 - 1.33 mmol/L [facility] Comment: Note: ??Total bilirubin higher than 20 mg/dL may lead to falsely low ionized calcium. CL Whole Blood 102 98 - 107 mmol/L [facility] Gluc Whole Bld 195 65 - 199 mg/dL [facility] Comment:Diabetes: >=200 mg/d L plus symptoms. Lactate WB 1.8 0.5 - 2.2 mmol/L [facility] Temp Art 37.0 Celsius [facility] Blood specimen (specimen) 09/21/2016 9:10 AM EST 09/21/2016 9:10 AM EST Alirio Esparza MD POINT OF CARE TEST ORDERABLES Performing Organization Address City/State/[facility] Co de Phone Number [facility] [place] [address] * Surgical Pathology Report (09/21/2016 9:09 AM EST) Final Diagnosis [id number] ?Location: 3T The signing pathologist has (i) [...] (R1) ??ADELITA 09/24/2016 9:32 AM EST [facility] AORTIC STRUCTURE / Unknown 09/21/2016 9:09 AM EST 09/21/2016 9:09 AM EST Alirio Esparza MD PATHOLOGY/CYTOLOGY ORDERABLES Performing Organization Address [facility] Co de Phone Number [facility] [place] [phone] * Specimen to Pathology (surgical or derm) (09/21/2016 9:09 AM EST) AP Specimen 09/21/2016 9:09 AM EST 09/21/2016 9:09 AM EST Narrative [facility] - 09/21/2016 9:09 AM EST Specimen requisition ordered. ??Separate Pathology report to follow Alirio Esparza MD PATHOLOGY/CYTOLOGY ORDERABLES Performing Organization Address [facility]/ZIP Co de Phone Number [facility] [place] [phone] * (ABNORMAL) BLOOD GAS 2 ARTERIAL (09/21/2016 8:50 AM EST) pH, Arterial 7.41 7.35 - 7.45 [facility] PCO2, Arterial 33(L) 35 - 45 mmHg [facility] PO2, Arterial 348(H) 85 - 104 mmHg [facility] Bicarbonate, Arterial 20.6 20.0 - 26.0 mmol/L [facility] Base Excess, Arterial -4.1(L) -3.0 - 3.0 mmol/L [facility] Hgb Blood Gas 9.5(L) 11.7 - 15.5 gm/dL [facility] Oxyhemoglobin, Arterial 98.8(H) 94.0 - 97.0 % [facility] Carboxyhemoglob in, Arterial 0.3 % [facility] Comment: Nonsmokers: 0.5-1.5% COHB Smokers: Variable, but usually less than 10% Toxic: 20-30% COHB Lethal: Greater than 60% COHB Methemoglobin, Arterial 0.3 <=1.5 % [facility] Na Whole Blood 137 135 - 145 mmol/L [facility] K Whole Blood 4.0 3.5 - 5.0 mmol/L [facility] Comment: Please note: Patients with WBC >100,000 may have falsely elevated Potassium levels. Contact the Clinical Chemistry Laboratory if there are any questions. ICa Whole Blood 1.04(L) 1.15 - 1.33 mmol/L [facility] Comment: Note: ??Total bilirubin higher than 20 mg/dL may lead to falsely low ionized calcium. CL Whole Blood 105 98 - 107 mmol/L [facility] Gluc Whole Bld 93 65 - 199 mg/dL [facility] Comment:Diabetes: >=200 mg/d L plus symptoms. Lactate WB 1.0 0.5 - 2.2 mmol/L [facility] Blood specimen (specimen) 09/21/2016 8:50 AM EST 09/21/2016 8:50 AM EST Alirio Esparza MD POINT OF CARE TEST ORDERABLES [facility] [place] [address] * (ABNORMAL) BLOOD GAS 2 ARTERIAL (09/21/2016 8:18 AM EST) pH, Arterial 7.42 7.35 - 7.45 [facility] PCO2, Arterial 36 35 - 45 mmHg [facility] PO2, Arterial 283(H) 85 - 104 mmHg [facility] Bicarbonate, Arterial 22.8 20.0 - 26.0 mmol/L [facility] Base Excess, Arterial -2.0 -3.0 - 3.0 mmol/L [facility] Hgb Blood Gas 12.6 11.7 - 15.5 gm/dL [facility] Oxyhemoglobin, Arterial 99.0(H) 94.0 - 97.0 % [facility] Carboxyhemoglob in, Arterial 0.6 % [facility] Comment: Nonsmokers: 0.5-1.5% COHB Smokers: Variable, but usually less than 10% Toxic: 20-30% COHB Lethal: Greater than 60% COHB Methemoglobin, Arterial 0.0 <=1.5 % [facility] Na Whole Blood 144 135 - 145 mmol/L [facility] K Whole Blood 4.0 3.5 - 5.0 mmol/L [facility] Comment: Please note: Patients with WBC >100,000 may have falsely elevated Potassium levels. Contact the Clinical Chemistry Laboratory if there are any questions. ICa Whole Blood 1.22 1.15 - 1.33 mmol/L [facility] Comment: Note: ??Total bilirubin higher than 20 mg/dL may lead to falsely low ionized calcium. CL Whole Blood 106 98 - 107 mmol/L [facility] Gluc Whole Bld 102 65 - 199 mg/dL [facility] Comment:Diabetes: >=200 mg/d L plus symptoms. Lactate WB 1.2 0.5 - 2.2 mmol/L [facility] FIO2 Art 95 % [facility] Flow Art 1.1 LPM [facility] PF Ratio Art 298 [facility] Temp Art 35.6 Celsius [facility] Blood specimen (specimen) 09/21/2016 8:18 AM EST 09/21/2016 8:18 AM EST Alirio Esparza MD POINT OF CARE TEST ORDERABLES Performing Organization Address [facility] Co de Phone Number [facility] [place] [address] * Prepare RBC (09/21/2016 7:05 AM EST) Dispensed? Yes [facility] Blood specimen (specimen) 09/21/2016 7:05 AM EST 09/21/2016 7:02 AM EST Alirio Esparza MD BLOOD BANK PRODUCT ORDERABLES Performing Organization Address [facility] de Phone Number [facility] [place] [address] * POCT Glucose (09/21/2016 6:42 AM EST) Glucose, POC 104 65 - 199 mg/dL [facility] Comment: Supplemental ranges: <140 mg/dL before meals <180 mg/dL all other times of the day Blood specimen (specimen) 09/21/2016 6:42 AM EST 09/21/2016 6:42 AM EST Alirio Esparza MD POINT OF CARE TEST ORDERABLES Performing Organization Address [facility] de Phone Number [facility] [place] [address] documented in this encounter Visit Diagnoses Diagnosis [...] dose on Wed09/21/16 at 1230, Until Discontinued, [place] teeth, Routine Given 09/25/2016 9:40 AM EST [...] if phenyleprine and/or vasopressin ineffective.Call pager # [phone] if initiated., Routine Rate/Dose Change 09/21/2016 2:27 [...] L/min/M2. Maximum volume 2 L. Call household appliances salesperson for additional fluid orders: pager #[phone]. Rate/Dose Verify 09/22/2016 10:00 AM EST 10 mL/hr 10 mL/hr Rate/Dose Change 09/22/2016 8:12 AM EST 10 mL/hr 10 mL/h r Rate/Dose Verify 09/21/2016 2:00 PM EST 100 mL/hr 100 mL/ hr sodium chloride 0.9% infusion 10-30 mL/hr, Intravenous, DAILY PRN, Starting on Wed09/21/16 at 1206, Until Wed09/22/16 at 1036, Side port TKO rate, per [facility] nursing protocol. Rate/Dose Verify 09/21/2016 5:00 PM EST 30 mL/hr 30 mL/hr Rate/Dose Verify 09/21/2016 4:00 PM EST 30 mL/hr 30 mL/h r Rate/Dose Verify 09/21/2016 3:00 PM EST 30 mL/hr 30 mL/h r sodium chloride 0.9% infusion 10-30 mL/hr, Intravenous, DAILY PRN, Starting on Wed09/21/16 at 1206, Until Wed09/22/16 at 1036, Side port TKO rate, per [facility] nrusing protocol. Rate/Dose Verify 09/22/2016 10:00 [...] Provider: Federico Apple RN)1708 (Given - Provider: Federcio Apple RN) 0005 (Given - Provider: Alie [...] 0600)1600 (Due - Provider: Kendall Martínez [facility]) aspirin chewable tablet 81 mg(Linked [...] dose on Wed09/21/16 at 1230, Until Discontinued, [place] teeth, Routine 0900 (Not Given - Provider: [...] 0940 (Not Given - Provider: Joselyn Caceres, VLADO - Reason: Patient/family refused) meTOPROLOL (LOPRESSOR) tablet [...] Routine documented in this encounter Care Teams Inside Sales Manager Relationship Specialty Start Date End Date Deborah Quiroga APRN PCP - General Family Medicine 03/24/16 02/04/23 documented as of this encounter
--- OUTSIDE RECORDS SUMMARY | 2024-05-18 14:08 | XMS_ITS | Encounter Summary ---
[place] [address] Care Team Providers Care Leaf Tier Name Role Phone Deborah Quiroga ANURAG Primary Care Provider [phone] Reason for Visit * Reason Onset Date Comments Medical Care Coordination 07/31/2016 Encounter Details Date Type Department Care Team (Late st Contact Info) Description 07/31/2016 Telephone Hematology [place] [phone] Alexandrea Greenwood RN Medical Care Coordination Social [...] 08/04/15 RN spoke with Aydee of the [facility] lab who states they can draw pt's cbc on 08/04/15, RN faxed lab req to [phone] at Aydee's request. RN instructed pt on Dr. Borjas's direction above. Pt verbalized understanding. documented in this encounter Plan of Treatment Upcoming Encounters Date Type Department Care Team (Late st Contact Info) Description 05/29/2024 2:00 PM EDT Hospital Encounter [place] [phone] Markel Borjas MD [facility] DR HEMATOLOGY [place] [address] 05/29/2024 2:00 PM EDT - 05/29/2024 2:43 PM EDT Surgery [place] [phone] Markel Borjas MD [facility] DR HEMATOLOGY [place] [address] (OSC MSURG) BONE MARROW BIOPSY AND ASPIRATION; DIAGNOSTIC (WRVU 1.44) 06/23/2024 2:00 PM EST Office Visit Hematology [place] [phone] Markel Borjas MD [facility] DR HEMATOLOGY [place] [address] 03/01/2025 4:15 PM EDT Office Visit Dermatology at [address] [place] [phone] Marek Bonilla MD [address] [place] [address] RD, [address] DERMATOLOGY [place], [place] [phone] Scheduled Procedures Name Priority Associated Diagnoses Date/Ti me (OSC MSURG) BONE MARROW BIOPSY AND ASPIRATION; DIAGNOSTIC (WRVU 1.44) Anemia, in pt with longstanding neutropenia 05/29/2024 2:00 PM EDT documented as of this encounter Visit Diagnoses Not on filedocumented in this encounter Care Teams Leaf Tier Relationship Specialty Start Date End Date Deborah Quiroga, ANURAG PCP - General Family Medicine 03/24/16 02/04/23 documented as of this encounter
--- OUTSIDE RECORDS SUMMARY | 2024-05-18 14:08 | XMS_ITS | Encounter Summary ---
Author Organization [facility] Address [facility] [place] [address] Care Team Providers Care Liquor Runner Name Role Phone Ashley Quirogan Cornelius ANURAG Primary Care Provider [phone] Encounter Details Date Type Department Care Team (Late st Contact Info) Description 08/11/2016 Telephone Hematology [place] [phone] Markel Borjas MD [facility] [place] [address] Social History Tobacco Use Types Packs/Day Years [...] PM EDT Hospital Encounter Outpatient [place] [phone] Markel Borjas MD [facility] [place] [address] 05/29/2024 2:00 PM EDT - 05/29/2024 2:43 PM EDT Surgery Outpatient [place] [phone] Markel Borjas MD [facility] [place] [address] (OSC MSURG) BONE MARROW BIOPSY AND ASPIRATION; DIAGNOSTIC (WRVU 1.44) 06/23/2024 2:00 PM EST Office Visit Hematology [place] [phone] Markel Borjas MD [facility] [place] [address] 03/01/2025 4:15 PM EDT Office Visit Dermatology at [place] [address] [place] [phone] Marek Bonilla MD [address], QU[place] A DERMATOLOGY [place], [place] [phone] Scheduled Procedures Name Priority Associated Diagnoses Date/Ti me (OSC MSURG) BONE MARROW BIOPSY AND ASPIRATION; DIAGNOSTIC (WRVU 1.44) Anemia, in pt with longstanding neutropenia 05/29/2024 2:00 PM EDT documented as of this encounter Visit Diagnoses Not on filedocumented in this encounter Care Teams Liquor Runner Relationship Specialty Start Date End Date Deborah Quiroga, COLD REDUCTION ROLLER PCP - General Family Medicine 03/24/16 02/04/23 documented as of this encounter
--- OUTSIDE RECORDS SUMMARY | 2024-05-18 14:08 | XMS_ITS | Encounter Summary ---
Author Organization [facility] Address [facility] [place] [address] Care Team Providers Care Glove Tagger Name Role Phone Junaid Deborah Shields APRN Primary Care Provider [phone] Encounter Details Date Type Department Care Team (Latest Contact Info) Description 06/19/2016 - 06/19/2016 11:59 PM EST Hospital Encounter Radiology [place] [phone] Nitesh Pina Jr., MD [facility] [place] [address] Pain Discharge Disposition: Home Social History Tobacco [...] PM EDT Hospital Encounter [place]patient [place] [phone] Markel Borjas MD [facility] DR [place] [address] 05/29/2024 2:00 PM EDT - 05/29/2024 2:43 PM EDT Surgery [place] [address] Markel Borjas MD [facility] DR [place] [address] (OSC MSURG) BONE MARROW BIOPSY AND ASPIRATION; DIAGNOSTIC (WRVU 1.44) 06/23/2024 2:00 PM EST Office Visit Hematology [place] [address] Markel Borjas MD [facility] [place] [address] 03/01/2025 4:15 PM EDT Office Visit Dermatology at [place] [address] [place] [address] Marek Bonilla MD [address], [place] [address] Scheduled Procedures Name Priority Associated Diagnoses Date/Ti [...] FILM LIBRARY ORD ERABLES Performing Organization Address City/State/[facility] Co de Phone Number [place], [place] documented in this encounter Visit Diagnoses Diagnosis Pain Generalized pain documented in this encounter Care Teams Glove Tagger Relationship Specialty Start Date End Date Deborah Quiroga, DURALUMIN METALWORKER PCP - General Family Medicine 03/24/16 02/04/23 documented as of this encounter
--- OUTSIDE RECORDS SUMMARY | 2024-05-18 14:08 | XMS_ITS | Encounter Summary ---
Author Organization [facility] Address [facility] [place] [address] Care Team Providers Care Briquette Machine Operator Helper Name Role Phone Deborah Quiroga APRN Primary Care Provider [phone] Encounter Details Date Type Department Care Team (Latest Contact Info) Description 05/19/2016 11:52 AM EDT - 05/19/2016 11:59 PM EDT Hospital Encounter XRay at [address] [place] [address] Alirio Esparza MD Nonrheumatic aortic valve stenosis [...] PM EDT Hospital Encounter Outpatient [place] [phone] Markel Borjas MD [facility] [address] [place] [address] 05/29/2024 2:00 PM EDT - 05/29/2024 2:43 PM EDT Surgery Outpatient [place] [address] Markel Borjas MD [facility] DR [place] [address] (OSC MSURG) BONE MARROW BIOPSY AND ASPIRATION; DIAGNOSTIC (WRVU 1.44) 06/23/2024 2:00 PM EST Office Visit Hematology [place] [address] Markel Borjas MD [facility] DR [place] [address] 03/01/2025 4:15 PM EDT Office Visit Dermatology at [place] [address] [place] [phone] Marek Bonilla MD [address], [place] [address] Scheduled Procedures Name Priority Associated Diagnoses Date/Ti [...] disorders documented in this encounter Care Teams Briquette Machine Operator Helper Relationship Specialty Start Date End Date Deborah Quiroga APRN PCP - General Family Medicine 03/24/16 02/04/23 documented as of this encounter
--- OUTSIDE RECORDS SUMMARY | 2024-05-18 14:08 | XMS_ITS | Encounter Summary ---
Author Organization [facility] [place] [address] Care Team Providers Care Chief Technology Officer Name Role Phone Junaid, Deborah Shields APRN Primary Care Provider [phone] Encounter Details Date Type Department Care Team (Late st Contact Info) Description 05/19/2016 10:00 AM EDT Office [place] [phone] Alirio Esparza MD Nonrheumatic aortic valve stenosis [...] PM EDT Hospital Encounter [place] [phone] Markel Borjas MD [facility] DR HEMATOLOGY [place] [address] 05/29/2024 2:00 PM EDT - 05/29/2024 2:43 PM EDT Surgery [place] [phone] Markel Borjas MD [facility] DR HEMATOLOGY [place] [address] (OSC MSURG) BONE MARROW BIOPSY AND ASPIRATION; DIAGNOSTIC (WRVU 1.44) 06/23/2024 2:00 PM EST Office Visit [place] [phone] Markel Borjas MD [facility] HEMATOLOGY [place] [address] 03/01/2025 4:15 PM EDT Office Visit Dermatology at [place] [address] [place] [address] Marek Bonilla MD [address], [place] [address] Scheduled Procedures Name Priority Associated Diagnoses Date/Ti [...] (Bezet) 448 ms MUSE SYSTEM Calculated P [place] 37 degrees MUSE SYSTEM Calculated R [place] 31 degrees MUSE SYSTEM Calculated T [place] 25 degrees MUSE SYSTEM INTERPRETATION Normal sinus rhythm Normal ECG No previous ECGs available Confirmed by MD Becca, Deangelo ([id number]) on 05/19/2016 5:23:33 PM MUSE SYSTEM 05/19/2016 11:4 3 AM EDT 05/19/2016 5:23 PM EDT Alirio Esparza MD ECG ORDERABLES MUSE SYSTEM * Basic Metabolic Panel (non-fasting) (05/19/2016 11:32 AM EDT) Glucose 86 65 - 199 mg/dL [facility] [...] the following links into your internet browser. [email or web address] Blood specimen (specimen) 05/19/2016 11:32 AM EDT 05/19/2016 11:41 AM EDT Narrative Resulting Agency Comment Spec In Lab Alirio Esparza MD CHEMISTRY ORDERABLE S [facility] [place] [address] documented in this encounter Visit Diagnoses Diagnosis Nonrheumatic aortic valve stenosis Aortic valve disorders Nonrheumatic aortic valve stenosis Aortic valve disorders documented in this encounter Care Teams Chief Technology Officer Relationship Specialty Start Date End Date Deborah Quiroga APRN PCP - General Family Medicine 03/24/16 02/04/23 documented as of this encounter
--- OUTSIDE RECORDS SUMMARY | 2024-05-18 14:08 | XMS_ITS | Encounter Summary ---
Author Organization Counts Include [facility] Address [facility] [place] [address] Care Team Providers Care Academic Intern Name Role Phone Ashley Quirogan Cornelius ANURAG Primary Care Provider [phone] Encounter Details Date Type Department Care Team (Latest Contact Info) Description 08/18/2016 4:40 PM EST Laboratory [place] [phone] Aortic valve stenosis, unspecified etiology Social History [...] Hospital Encounter Outpatient [place] [phone] Markel Borjas MD [facility] DR HEMATOLOGY [place] [address] 05/29/2024 2:00 PM EDT - 05/29/2024 2:43 PM EDT Surgery Outpatient [place] [phone] Markel Borjas MD [facility] DR HEMATOLOGY AND ONCOLOGY [place], [place] [id number] (OSC MSURG) BONE MARROW BIOPSY AND ASPIRATION; DIAGNOSTIC (WRVU 1.44) 06/23/2024 2:00 PM EST Office Visit Hematology [place] [address] Markel Borjas MD [facility] DR HEMATOLOGY [place] [address] 03/01/2025 4:15 PM EDT Office Visit Dermatology at [place] [address] [place] [phone] Marek Bonilla MD [address] [place] [address] Scheduled Procedures Name Priority Associated Diagnoses Date/Ti me (OSC MSURG) BONE MARROW BIOPSY AND ASPIRATION; DIAGNOSTIC (WRVU 1.44) Anemia, in pt with longstanding neutropenia 05/29/2024 2:00 PM EDT documented as of this encounter Procedures Procedure Name Priority Date/Time Associated Diagnosis Comments ABORH RECHECK STATUS Routine 08/18/2016 4:50 PM EST TYPE AND SCREEN, SDP (FUTURE SURGERY, [facility] SAME DAY PROGRAM ONLY) Routine 08/18/2016 4:50 [...] BETH ALEJO Performing Organization Address [facility] Co de Phone Number [facility] [place] [address] * Antibody screen (08/18/2016 4:50 PM EST) [...] BANK LAB BETH ORTEGAROMERO Performing Organization Address [facility] Co de Phone Number [facility] [place] [address] * ABO/Rh Typing (08/18/2016 4:50 PM EST) ABORH Type B Pos [facility] Blood specimen (specimen) 08/18/2016 4:50 PM EST 08/18/2016 5:11 PM EST Narrative Resulting Agency Comment Spec In Lab Alirio Esparza MD BLOOD BANK LAB BETH ALEJO Performing Organization Address [facility]/ZIP Co de Phone Number [facility] [place] [address] * Basic Metabolic Panel (non-fasting) (08/18/2016 4:50 PM EST) [facility] Glucose 82 65 - 199 mg/dL ST. [...] the following links into your internet browser. [email or web address] Blood specimen (specimen) 08/18/2016 4:50 PM EST 08/18/2016 5:03 PM EST Narrative Resulting Agency Comment Spec In Lab Alirio Esparza MD CHEMISTRY ORDERABLE S [facility] [place] [address] documented in this encounter Visit Diagnoses Diagnosis Aortic valve stenosis, unspecified etiology documented in this encounter Care Teams Academic Intern Relationship Specialty Start Date End Date Deborah Quiroga APRN PCP - General Family Medicine 03/24/16 02/04/23 documented as of this encounter
--- OUTSIDE RECORDS SUMMARY | 2024-05-18 14:08 | XMS_ITS | Encounter Summary ---
Author Organization [facility] Address [facility] [place] [address] Care Team Providers Care Channel Rougher Name Role Phone Deborah Quiroga ANURAG Primary Care Provider [phone] Encounter Details Date Type Department Care Team (Late st Contact Info) Description 06/09/2016 Orders Only [place] [phone] Nitesh Pina Jr., MD [facility] [address] [place] [address] Cyclical neutropenia Social History Tobacco Use Types [...] PM EDT Hospital Encounter [place] [address] Markel Borjas MD [facility] [address] [place] [address] 05/29/2024 2:00 PM EDT - 05/29/2024 2:43 PM EDT Surgery [place] [address] Markel Borjas MD [facility] [address] [place] [address] (OSC MSURG) BONE MARROW BIOPSY AND ASPIRATION; DIAGNOSTIC (WRVU 1.44) 06/23/2024 2:00 PM EST Office Visit [place]ology [place] [phone] Markel Borjas MD [facility] [place] [address] 03/01/2025 4:15 PM EDT Office Visit Dermatology at [place] [address] [place] [phone] Marek Bonilla MD [address], [place] [address] Scheduled Procedures Name Priority Associated Diagnoses Date/Ti me (OSC MSURG) BONE MARROW BIOPSY AND ASPIRATION; DIAGNOSTIC (WRVU 1.44) Anemia, in pt with longstanding neutropenia 05/29/2024 2:00 PM EDT documented as of this encounter Results * Immunophenotyping Flow Cytometry (06/09/2016 4:53 PM EST) Immunophenotyping Flow See Comment [facility] Comment: When completed by the Pathologist, the Flow Cytometry Report ([id number]) will display under the Pathology Results section within eDH. Specimen of unknown material (specimen) 06/09/2016 4:53 PM EST 06/09/2016 5:00 PM EST Narrative Resulting Agency Comment Spec In Lab Nitesh Pina Jr., MD HEMATOLOGY ORDERABLE S [facility] [place] [address] documented in this encounter Visit Diagnoses Diagnosis Cyclical neutropenia Cyclic neutropenia documented in this encounter Care Teams Channel Rougher Relationship Specialty Start Date End Date Deborah Quiroga, SPRING FORMER MACHINE PCP - General Family Medicine 03/24/16 02/04/23 documented as of this encounter
--- OUTSIDE RECORDS SUMMARY | 2024-05-18 14:08 | XMS_ITS | Encounter Summary ---
Author Organization [facility] [place] [address] Care Team Providers Care Finish Patcher Name Role Phone Deborah Quiroga ANURAG Primary Care Provider [phone] Encounter Details Date Type Department Care Team (Late st Contact Info) Description 07/22/2016 External Results Hematology [place] [phone] Alexandrea Greenwood RN Neutropenia, unspecified type Social [...] Hospital Encounter [place]patient [place] [phone] Markel Borjas MD [facility] [address] [place] [address] 05/29/2024 2:00 PM EDT - 05/29/2024 2:43 PM EDT Surgery [place] [phone] Markel Borjas MD [facility] DR [place] [address] (OSC MSURG) BONE MARROW BIOPSY AND ASPIRATION; DIAGNOSTIC (WRVU 1.44) 06/23/2024 2:00 PM EST Office Visit Hematology [place] [address] Markel Borjas MD [facility] [place] [address] 03/01/2025 4:15 PM EDT Office Visit Dermatology at [place] [address] [place] [phone] Marek Bonilla MD [address] [place] [address] Scheduled Procedures Name Priority Associated Diagnoses Date/Ti [...] AM EST Neutropenia, unspecified type MONONUCLEOSIS SCREEN (APD/[facility]) Routine 07/20/2016 10:30 AM EST Neutropenia, unspecified type CBC (WITH DIFF) Routine 07/20/2016 10:30 AM EST Neutropenia, unspecified type documented in this encounter Results * Copper, serum (07/20/2016 10:30 AM EST) Copper (NOVEMBER) 1.09 0.75 - 1.45 EXTERNAL LAB Blood specimen (specimen) 07/20/2016 10:30 AM EST Markel Borjas MD LAB SEND OUT ORDER JODIE Performing Organization Address [facility] de Phone Number EXTERNAL LAB * CMV PCR, Quantitative (07/20/2016 10:30 AM EST) CMV PCR,Quantitati ve undetected EXTERNAL LAB Blood specimen (specimen) 07/20/2016 10:30 AM EST Markel Borjas MD MOLECULAR ORDERABL ES Performing Organization Address [facility] de Phone Number EXTERNAL LAB * Mononucleosis Screen (07/20/2016 10:30 AM EST) Mononucleosis Screen neg neg - neg EXTERNAL LAB Blood specimen (specimen) 07/20/2016 10:30 AM EST Markel Borjas MD IMMUNOLOGY ORDERAB LES Performing Organization Address [facility] de Phone Number EXTERNAL LAB * (ABNORMAL) CBC (with Diff) (07/20/2016 10:30 AM EST) White Blood Cell 1.61(A) 4.4 - 10.8 EXTERNAL LAB Hemoglobin 12.3 12.0 - 16.0 EXTERNAL LAB Hematocrit 37.2 36.0 - 46.0 EXTERNAL LAB Platelet 229 130 - 400 EXTERNAL LAB Blood specimen (specimen) 07/20/2016 10:30 AM EST Markel Borjas MD HEMATOLOGY ORDERAB LES Performing Organization Address [facility] de Phone Number EXTERNAL LAB documented in this encounter Visit Diagnoses Diagnosis Neutropenia, unspecified type documented in this encounter Care Teams Finish Patcher Relationship Specialty Start Date End Date Deborah Quiroga APRN PCP - General Family Medicine 03/24/16 02/04/23 documented as of this encounter
--- OUTSIDE RECORDS SUMMARY | 2024-05-18 14:08 | XMS_ITS | Encounter Summary ---
Author Organization [facility] [place] [address] Care Team Providers Care Roof Bolter Helper Name Role Phone Junaid Deborah Cornelius ANURAG Primary Care Provider [phone] Encounter Details Date Type Department Care Team (Late st Contact Info) Description 07/13/2016 External Results [place] [phone] Provider, Scanning Social History Tobacco Use Types [...] PM EDT Hospital Encounter [place]patient [place] [phone] Markel Borjas MD [facility] [address] HEMATOLOGY [place] [address] 05/29/2024 2:00 PM EDT - 05/29/2024 2:43 PM EDT Surgery [place]patient [place] [phone] Markel Borjas MD [facility] [address] HEMATOLOGY [place] [address] (OSC MSURG) BONE MARROW BIOPSY AND ASPIRATION; DIAGNOSTIC (WRVU 1.44) 06/23/2024 2:00 PM EST Office Visit Hematology [place] [address] Markel Borjas MD [facility] [address] HEMATOLOGY [place] [address] 03/01/2025 4:15 PM EDT Office Visit Dermatology at [place] [address] [place] [address] Marek Bonilla MD [address], [place] [address] Scheduled Procedures Name Priority Associated Diagnoses Date/Ti [...] filedocumented in this encounter Care Teams Roof Bolter Helper Relationship Specialty Start Date End Date Deborah Quiroga APRN PCP - General Family Medicine 03/24/16 02/04/23 documented as of this encounter
--- OUTSIDE RECORDS SUMMARY | 2024-05-18 14:08 | XMS_ITS | Encounter Summary ---
Author Organization [facility] [place] [address] Care Team Providers Care Hoist Worker Name Role Phone Deborah Quiroga APRN Primary Care Provider [phone] Encounter Details Date Type Department Care Team (Late st Contact Info) Description 08/18/2016 Orders [place] [phone] Alirio Esparza MD Aortic valve stenosis, unspecified [...] PM EDT Hospital Encounter Outpatient [place] [phone] Markel Borjas MD [facility] [address] [place] [address] 05/29/2024 2:00 PM EDT - 05/29/2024 2:43 PM EDT Surgery Outpatient [place] [phone] Markel Borjas MD [facility] [address] [place] [address] (OSC MSURG) BONE MARROW BIOPSY AND ASPIRATION; DIAGNOSTIC (WRVU 1.44) 06/23/2024 2:00 PM EST Office Visit [place] [address] Markel Borjas MD [facility] [address] [place] [address] 03/01/2025 4:15 PM EDT Office Visit Dermatology at [place] [address] [place] [address] Marek Bonilla MD [address], [place] [address] Scheduled Procedures Name Priority Associated Diagnoses Date/Ti me (OSC MSURG) BONE MARROW BIOPSY AND ASPIRATION; DIAGNOSTIC (WRVU 1.44) Anemia, in pt with longstanding neutropenia 05/29/2024 2:00 PM EDT documented as of this encounter Results * Basic Metabolic Panel (non-fasting) (08/18/2016 4:50 PM EST) Pathologist [facility] Glucose 82 65 - 199 mg/dL ST. [...] the following links into your internet browser. [email or web address] Blood specimen (specimen) 08/18/2016 4:50 PM EST 08/18/2016 5:03 PM EST Narrative Resulting Agency Comment Spec In Lab Alirio Esparza MD CHEMISTRY ORDERABLE S Performing Organization Address City/State/[facility] Co de Phone Number [facility] [place] [address] documented in this encounter Visit Diagnoses Diagnosis Aortic valve stenosis, unspecified etiology documented in this encounter Care Teams Hoist Worker Relationship Specialty Start Date End Date Deborah Quiroga APRN PCP - General Family Medicine 03/24/16 02/04/23 documented as of this encounter
--- OUTSIDE RECORDS SUMMARY | 2024-05-18 14:08 | XMS_ITS | Encounter Summary ---
Author Organization [facility] Address [facility] [place] [address] Care Team Providers Care Board Handler Name Role Phone Junaid, Deborah Shields APRN Primary Care Provider [phone] Reason for Visit * Auth/Cert Specialty Diagnoses / Procedures Referred By Crispin t Referred To Contact Diagnoses AVS Procedures CARDIAC CATHETERIZATION Referral ID Status Reason Start Date Expiration Date Visits Re quested Visits Authorized [id number] 1 1 Encounter Details Date Type Department Care Team (Late st Contact Info) Description 06/03/2016 7:30 AM EDT - 06/03/2016 8:30 AM EDT Surgery [place] [phone] Mario Alberto Escobedo MD [facility] [place] [address] CARDIAC CATHETERIZATION Social History Tobacco Use Types [...] by your doctor, do not take any ltzp-hpo-[id number] medicinesor herbal preparations without first discussing this with your doctor or pharmacist. There is the possibility of side effects and interactions when these are combined. Follow Up Care Who to call with questions or problems If there are any questions or problems that you think might be related to your cardiac cath or angioplasty, contact the roll cleaner rn care transition by calling [facility] at . * Patient Instructions* Felicia Corrigan - 06/03/2016 9:33 AM EDT Cardiology Instructions Call your doctor if: Chest pain, dyspnea, pain or swelling in legs occurs. If you have non-emergent questions between now and the time of your follow up appointments: -During 8am-5pm Wednesday through Wednesday call [phone] to speak with a nurse in the cardiology clinic -All other times call [phone] and ask to speak to the gas treater rn care transition. MEDICATIONS - restart your spironolactone, discontinue prior [...] Appointments: Primary care provider: Cardiology: Deborah Hahn, VIDEO MACHINES MECHANIC [phone] Follow up as planned or as needed. Dr. Esparza [phone] Other follow-up appointment: Hematology - Dr. Mario [...] PM EDT Hospital Encounter Outpatient [place] [phone] Markel Borjas MD [facility] DR HEMAT[place] [address] 05/29/2024 2:00 PM EDT - 05/29/2024 2:43 PM EDT Surgery Outpatient [place] [phone] Markel Borjas MD [facility] DR HEMATOLOG[place] [address] (OSC MSURG) BONE MARROW BIOPSY AND ASPIRATION; DIAGNOSTIC (WRVU 1.44) 06/23/2024 2:00 PM EST Office Visit Hematology [place] [phone] Markel Borjas MD [facility] DR HEMATOLOG[place] [address] 03/01/2025 4:15 PM EDT Office Visit Dermatology at [place] [address] [place] [address] Marek Bonilla MD [address] [place] [address] Scheduled Procedures Name Priority Associated Diagnoses Date/Ti [...] CHEMISTRY ORDERABLES [facility] [place] [address] * Methylmalonic acid, serum (06/03/2016 11:45 AM EDT) [facility] Methylmalonic Acid (NOVEMBER) 0.21 <=0.40 nmol/mL [facility] Comment: Test Performed by: [facility] [place] [address] University Archivist: Raymond Chaudhry II, M.D., Ph.D. Blood specimen (specimen) 06/03/2016 11:45 AM EDT 06/03/2016 1:57 PM EDT Narrative Resulting Agency Comment Spec In Lab Mario Alberto Escobedo MD LAB SEND OUT ORDERAB LES Performing Organization Address [facility] de Phone Number [facility] [place] [address] * Granulocyte Antibody (06/03/2016 11:45 AM EDT) [facility] Granulocyte Ab (NOVEMBER) Negative Not Applicable [facility] Comment: ADDITIONAL INFORMATION Method: Immunofluorescent Assay Performing Laboratory CLIA# [id number] This test was developed and its performance characteristics determined by [facility] in a manner consistent with CLIA requirements. This test has not been cleared or approved by the U.S. Food and Drug Administration. Test Performed by: [facility] [place] [address] University Archivist: Raymond Chaudhry II, M.D., Ph.D. Blood specimen (specimen) 06/03/2016 11:45 AM EDT 06/03/2016 1:57 PM EDT Narrative Resulting Agency Comment Spec In Lab Mario Alberto Escobedo MD LAB SEND OUT ORDERAB LES Performing Organization Address [facility] Co de Phone Number [facility] [place] [address] * TSH (06/03/2016 11:45 AM EDT) Thyroid Stimulating Hormone 2.18 0.27 - 4.20 mcIU/mL [facility] Blood specimen (specimen) 06/03/2016 11:45 AM EDT 06/03/2016 12:11 PM EDT Narrative Resulting Agency Comment Spec In Lab Mario Alberto Escobedo MD CHEMISTRY ORDERABLES [facility] [place] [address] * Homocysteine Total, Plasma (06/03/2016 11:45 AM EDT) Homocystine 9 <=15 mcmol/L [facility] Blood specimen (specimen) 06/03/2016 11:45 AM EDT 06/03/2016 12:11 PM EDT Narrative Resulting Agency Comment Spec In Lab Mario Alberto Escobedo MD CHEMISTRY ORDERABLES [facility] [place] [address] * Folate, serum (06/03/2016 11:45 AM EDT) Folate >20.0 4.8 - 24.2 ng/mL [facility] Blood specimen (specimen) 06/03/2016 11:45 AM EDT 06/03/2016 12:04 PM EDT Narrative Resulting Agency Comment Spec In Lab Mario Alberto Escobedo MD CHEMISTRY ORDERABLES [facility] [place] [address] * (ABNORMAL) Sedimentation rate (06/03/2016 11:45 AM EDT) Sedimentation Rate Automated 41(H) 0 - 20 mm/hr [facility] Blood specimen (specimen) 06/03/2016 11:45 AM EDT 06/03/2016 12:04 PM EDT Narrative Resulting Agency Comment Spec In Lab Mario Alberto Escobedo MD HEMATOLOGY ORDERABLE S Performing Organization Address City/[facility]/ZIP Co de Phone Number [facility] [place] [address] * Lactate Dehydrogenase (06/03/2016 11:45 AM EDT) Lactate Dehydrogenase 164 110 - 220 unit/L [facility] Blood specimen (specimen) 06/03/2016 11:45 AM EDT 06/03/2016 12:11 PM EDT Narrative Resulting Agency Comment Spec In Lab Mario Alberto Escobedo MD CHEMISTRY ORDERABLES Performing Organization Address [facility] de Phone Number [facility] [place] [address] * Comprehensive metabolic panel (non-fasting) (06/03/2016 11:45 [...] the following links into your internet browser. [email or web address] Blood specimen (specimen) 06/03/2016 11:45 AM EDT 06/03/2016 12:11 PM EDT Narrative Resulting Agency Comment Spec In Lab Mario Alberto Escobedo MD CHEMISTRY ORDERABLES [facility] [place] [address] documented in this encounter Visit Diagnoses Diagnosis [...] (New Bag - Prov ider: Alie Madrid, VLADO) sodium chloride 0.9% infusion 150 mL/hr, Intravenous, [...] Hernandez) documented in this encounter Care Teams Board Handler Relationship Specialty Start Date End Date Deborah Quiroga, VIDEO MACHINES MECHANIC PCP - General Family Medicine 03/24/16 02/04/23 documented as of this encounter
--- OUTSIDE RECORDS SUMMARY | 2024-05-18 14:08 | XMS_ITS | Encounter Summary ---
Author Organization Formerly [facility] Address [facility] [place] [address] Care Team Providers Care Residential Living Assistant Name Role Phone Deborah Quiroga APRN Primary Care Provider Encounter Details Date Type Department Care Team (Late st Contact Info) Description 07/17/2016 9:00 AM EST Office Visit Hematology [place] [address] Markel Borjas MD [facility] [address] [place] [address] Neutropenia, unspecified type Social History Tobacco Use [...] 9:00 AM EST Hematology Outpatient [facility] [...] TOUCH PREP, CLOT SECTION, CORE ??BIOPSY); [OSR# [id number], COLLECTED 06/23/2016, 19 SLIDES]: ?1. 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 Labs will be drawn at [facility] next week Imaging As above [...] leukopenia. 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 N [facility] HEM ONC [facility] [phone] Date: 07/17/16 Patient Name: Purnima Thacker : 1955 Diagnosis: neutropenia Referral to [site]: [facility] Orders: ? Labs: Fax results to . [x] Draw CBC, copper level, CMV PCR, mononucleosis screen on 07/20 Repeat CBC on 07/30 (to measure response of WBC after Neulasta) ? Growth factor: [x] Neulasta 6mg SQ injection x 1 on 07/20/2016 Signature: Markel Borjas MD beeper # [id number] documented in this encounter Plan of Treatment Upcoming Encounters Date Type Department Care Team (Late st Contact Info) Description 05/29/2024 2:00 PM EDT Hospital Encounter [place] [phone] Markel Borjas MD [facility] [address] [place] [address] 05/29/2024 2:00 PM EDT - 05/29/2024 2:43 PM EDT Surgery [place] [address] Markel Borjas MD [facility] [address] [place] [address] (OSC MSURG) BONE MARROW BIOPSY AND ASPIRATION; DIAGNOSTIC (WRVU 1.44) 06/23/2024 2:00 PM EST Office Visit Hematology [place] [address] Markel Borjas MD [facility] [place] [address] 03/01/2025 4:15 PM EDT Office Visit Dermatology at [place] [address] [place] [address] Marek Bonilla MD [address] [place] [address] Scheduled Procedures Name Priority Associated Diagnoses Date/Ti me (OSC MSURG) BONE MARROW BIOPSY AND ASPIRATION; DIAGNOSTIC (WRVU 1.44) Anemia, in pt with longstanding neutropenia 05/29/2024 2:00 PM EDT documented as of this encounter Results * (ABNORMAL) CBC (with Diff) (07/31/2016 9:40 AM EST) [facility] White Blood Cell 2.23(EXTER NAL/ABN) 4.4 - [...] * Mononucleosis Screen (07/20/2016 10:30 AM EST) [facility] Mononucleosis Screen neg neg - neg EXTERNAL LAB Blood specimen (specimen) 07/20/2016 10:30 AM EST Markel Borjas MD IMMUNOLOGY ORDERAB LES Performing Organization Address [facility] Co de Phone Number EXTERNAL LAB * Copper, serum (07/20/2016 10:30 AM EST) Pathologist [facility] Copper (NOVEMBER) 1.09 0.75 - 1.45 EXTERNAL LAB Blood specimen (specimen) 07/20/2016 10:30 AM EST Markel Borjas MD LAB SEND OUT ORDER JODIE Performing Organization Address [facility] Co de Phone Number EXTERNAL LAB * CMV PCR, Quantitative (07/20/2016 10:30 AM EST) Pathologist [facility] CMV PCR,Quantitati ve undetected EXTERNAL LAB Blood specimen (specimen) 07/20/2016 10:30 AM EST Markel Borjas MD MOLECULAR ORDERABL ES Performing Organization Address [facility] Co de Phone Number EXTERNAL LAB * [...] HEMATOLOGY ORDERAB LES Performing Organization Address [facility] Co de Phone Number EXTERNAL LAB documented in this encounter Visit Diagnoses Diagnosis Neutropenia, unspecified type documented in this encounter Care Teams Residential Living Assistant Relationship Specialty Start Date End Date Deborah Quiroga APRN PCP - General Family Medicine 03/24/16 02/04/23 documented as of this encounter
--- OUTSIDE RECORDS SUMMARY | 2024-05-18 14:08 | XMS_ITS | Encounter Summary ---
Author Organization [facility] Address [facility] [place] [address] Care Team Providers Care Lacemaker Name Role Phone Ashley Quirogan Cornelius ANURAG Primary Care Provider [phone] Encounter Details Date Type Department Care Team (Latest Contact Info) Description 05/19/2016 11:20 AM EDT Laboratory [place] [phone] Nonrheumatic aortic valve stenosis Social History Tobacco [...] PM EDT Hospital Encounter Outpatient [place] [phone] Markel Borjas MD [facility] [address] HEMATOLOGY [place] [address] 05/29/2024 2:00 PM EDT - 05/29/2024 2:43 PM EDT Surgery [place]patient [place] [phone] Markel Borjas MD [facility] DR HEMATOLOGY [place] [address] (OSC MSURG) BONE MARROW BIOPSY AND ASPIRATION; DIAGNOSTIC (WRVU 1.44) 06/23/2024 2:00 PM EST Office Visit [place]ology [place] [address] Markel Borjas MD [facility] [address] HEMATOLOGY [place] [address] 03/01/2025 4:15 PM EDT Office Visit Dermatology at [place] [address] [place] [phone] Marek Bonilla MD [address], [place] [address] Scheduled Procedures Name Priority Associated Diagnoses Date/Ti [...] stenosis TYPE AND SCREEN, SDP (FUTURE SURGERY, [facility] SAME DAY PROGRAM ONLY) Routine [...] [facility] RBC Morphology Normal [facility] Blood specimen (specimen) 05/19/2016 11:32 AM EDT 05/19/2016 11:41 AM EDT Narrative Resulting Agency Comment Spec In Lab Alirio Esparza MD HEMATOLOGY ORDERABL ES [facility] [place] [address] * (ABNORMAL) Differential, Automated (05/19/2016 11:32 AM EDT) Neutrophil % 25.9 % [facility] Neutrophil Absolute 0.42(Crit ical) 1.70 - 6.10 x10(3)/mc L [facility] Comment: This result has been called to DR ALIRIO ESPARZA by Alivia Ibarra on 05 19 2016 at 1228, and has been read back. Lymph % 59.9 % [facility] Lymphocytes Abs 1.0 0.9 - 3.2 x10(3)/mc L [facility] Monocyte % 13.0 % [facility] Monocyte Abs 0.2(L) 0.3 - 0.9 x10(3)/mc L [facility] Eos % 0.6 % [facility] Eosinophils Abs 0.0 0.0 - 0.4 x10(3)/mc L [facility] Basophil % 0.6 % [facility] Baso Absolute [...] ORDERABL ES [facility] [place] [address] * (ABNORMAL) Hemogram (05/19/2016 11:32 AM EDT) White Blood Cell 1.6(Criti gabrielle) 4.0 - 9.5 x10(3)/mc L [facility] Comment: This result has been called to DR ALIRIO ESPARZA by Alivia Ibarra on 05 19 2016 at 1228, and has been read back. Red Blood Cell 3.96(L) 4.00 - 5.21 x10(6)/mc L [facility] Hemoglobin 12.5 11.7 - 15.5 gm/dL [facility] Hematocrit 37.9 35.7 - 45.8 % [facility] Mean Cell Volume 95.7(H) 82.6 - 94.4 fL [facility] Mean Cell Hemoglobin 31.6 27.1 - 32.0 pg [facility] Mean Cell Hemoglobin Concentration 33.0 31.7 - 35.0 gm/dL [facility] Platelet 227 145 - 357 x10(3)/mc L [facility] RDW Standard Deviation 40.5 37.0 - 46.0 fL [facility] RDW coefficient of variation 11.5 11.5 - 14.1 % [facility] Mean Platelet Volume 8.4 7.6 - 12.9 fL [facility] NRBC% auto 0.0 % [facility] NRBC Absolute 0.000 0.000 - 0.000 x10(3)/mc L [facility] Blood specimen (specimen) 05/19/2016 11:32 AM EDT 05/19/2016 11:41 AM EDT Narrative Resulting Agency Comment Spec In Lab Alirio Esparza MD HEMATOLOGY ORDERABL ES Performing Organization Address [facility] Co de Phone Number [facility] [place] [address] * Antibody screen (05/19/2016 11:32 AM EDT) Ab Screen Interp Negative [facility] Expires at [id number] on: 07/03/2016 [facility] Comment: Corrected from 06/11/16 12:00 [Unknown] on 06/09/16 05:51 by Bethanie Tomlinson I.. Corrected from 07/03/16 12:00 [Unknown] on 05/21/16 06:00 by Shelia Barrera Blood specimen (specimen) 05/19/2016 11:32 AM EDT 05/19/2016 11:35 AM EDT Narrative Resulting Agency Comment Spec In Lab Alirio Esparza MD BLOOD BANK LAB ORDCornelius ALEJO Performing Organization Address [facility]/ZIP Co de Phone Number [facility] [place] [address] * ABO/Rh Typing (05/19/2016 11:32 AM EDT) ABORH Type B Pos [facility] Blood specimen (specimen) 05/19/2016 11:32 AM EDT 05/19/2016 11:35 AM EDT Narrative Resulting Agency Comment Spec In Lab Alirio Esparza MD BLOOD BANK LAB ORDE MELO Performing Organization Address City/[facility]/ZIP Co de Phone Number [facility] [place] [address] * Basic Metabolic Panel (non-fasting) (05/19/2016 11:32 AM EDT) Glucose 86 65 - 199 mg/dL [facility] Comment:Diabetes: >=200 mg/d L plus symptoms Blood Urea Nitrogen 13 8 - 18 mg/dL [facility] Creatinine 0.95 0.70 - 1.20 mg/dL [facility] Comment: Please note that the pediatric reference intervals supplied above were not validated at [facility]. Results from pediatric patients should be interpreted in conjunction to the patient's age, height and muscle mass. Sodium 140 135 - 145 mmol/L [facility] Potassium 4.3 3.5 - 5.0 mmol/L [facility] Comment: Please note: ??Patients with WBC >100,000 may have falsely elevated Potassium levels. ??For accurate Potassium quantification in these patients send serum separator tube (gold top) for subsequent determinations. ??Contact the Clinical Chemistry Laboratory if there are any questions. Chloride 101 98 - 107 mmol/L [facility] Carbon Dioxide 27 22 - 31 mmol/L [facility] Anion Gap 12 5 - 15 mmol/L [facility] Calcium 10.1 8.5 - 10.5 mg/dL [facility] Est Glomerular Filtration Rate 60 [...] the following links into your internet browser. [email or web address] Blood specimen (specimen) 05/19/2016 11:32 AM EDT 05/19/2016 11:41 AM EDT Narrative Resulting Agency Comment Spec In Lab Alirio Esparza MD CHEMISTRY ORDERABLE S Performing Organization Address City/State/[facility] Co de Phone Number [facility] [place] [address] documented in this encounter Visit Diagnoses Diagnosis Nonrheumatic aortic valve stenosis Aortic valve disorders documented in this encounter Care Teams Lacemaker Relationship Specialty Start Date End Date Deborah Quiroga APRN PCP - General Family Medicine 03/24/16 02/04/23 documented as of this encounter
--- OUTSIDE RECORDS SUMMARY | 2024-05-18 14:08 | XMS_ITS | Encounter Summary ---
Author Organization [facility] [place] [address] Care Team Providers Care Multi Mission Helicopter Aircrewman Name Role Phone Deborah Quiroga APRN Primary Care Provider [phone] Encounter Details Date Type Department Care Team (Late st Contact Info) Description 08/18/2016 4:20 PM EST Clinical [place] [phone] Social History Tobacco Use Types Packs/Day Years [...] Hospital Encounter Outpatient [place] [phone] Markel Borjas MD [facility] [address] [place] [address] 05/29/2024 2:00 PM EDT - 05/29/2024 2:43 PM EDT Surgery [place] [phone] Markel Borjas MD [facility] [address] [place] [address] (OSC MSURG) BONE MARROW BIOPSY AND ASPIRATION; DIAGNOSTIC (WRVU 1.44) 06/23/2024 2:00 PM EST Office Visit Hematology [place] [phone] Markel Borjas MD [facility] [address] [place] [address] 03/01/2025 4:15 PM EDT Office Visit Dermatology at [place] [address] [place] [address] Marek Bonilla MD [address] [place] [address] Scheduled Procedures Name Priority Associated Diagnoses Date/Ti me (OSC MSURG) BONE MARROW BIOPSY AND ASPIRATION; DIAGNOSTIC (WRVU 1.44) Anemia, in pt with longstanding neutropenia 05/29/2024 2:00 PM EDT documented as of this encounter Visit Diagnoses Not on filedocumented in this encounter Care Teams Multi Mission Helicopter Aircrewman Relationship Specialty Start Date End Date Deborah Quiroga APRN PCP - General Family Medicine 03/24/16 02/04/23 documented as of this encounter
--- OUTSIDE RECORDS SUMMARY | 2024-05-18 14:08 | XMS_ITS | Encounter Summary ---
Author Organization [facility] [place] [address] Care Team Providers Care Lead Tank Mechanic Name Role Phone Ashley Quirogazac Shields APRN Primary Care Provider [phone] Reason for Visit * Consultation (Urgent) - Closed Specialty Diagnoses / Procedures Referred By Contac t Referred To Contact Cardiac Surgery Diagnoses aortic stenosis, consideration for valve replacement Antelmo Burrell MD [address] [place] [address] [place] [address] Alirio Esparza MD [facility] [place] [address] Referral ID Status Reason Start Date Expiration Date V isits Requested Visits Authorized [id number] Closed Connection Center 03/04/2016 03/04/2017 1 1 Encounter Details Date Type Department Care Team (Late st Contact Info) Description 03/24/2016 10:40 AM EDT Office [place] [phone] Alirio Esparza MD Aortic valve stenosis, unspecified [...] is a patient of Antelmo Burrell [facility] Cardiology. Mrs. Thacker is being [...] 30 minute visit, 20 minutes were spent [id number] with the patient discussing aortic stenosis and valve replacement. documented in this encounter Plan of Treatment Upcoming Encounters Date Type Department Care Team (Late st Contact Info) Description 05/29/2024 2:00 PM EDT Hospital Encounter Outpatient [place] [address] Markel Borjas MD [facility] [address] [place] [address] 05/29/2024 2:00 PM EDT - 05/29/2024 2:43 PM EDT Surgery Outpatient [place] [address] Markel Borjas MD [facility] [address] [place] [address] (OSC MSURG) BONE MARROW BIOPSY AND ASPIRATION; DIAGNOSTIC (WRVU 1.44) 06/23/2024 2:00 PM EST Office Visit [place]ematology [place] [phone] Markel Borjas MD [facility] [address] [place] [address] 03/01/2025 4:15 PM EDT Office Visit Dermatology at [place] [address] [place] [address] Marek Bonilla MD [address] [place] [address] Scheduled Procedures Name Priority Associated Diagnoses Date/Ti me (OSC MSURG) BONE MARROW BIOPSY AND ASPIRATION; DIAGNOSTIC (WRVU 1.44) Anemia, in pt with longstanding neutropenia 05/29/2024 2:00 PM EDT documented as of this encounter Visit Diagnoses Diagnosis Aortic valve stenosis, unspecified etiology documented in this encounter Care Teams Lead Tank Mechanic Relationship Specialty Start Date End Date Deborah Quiroga APRN PCP - General Family Medicine 03/24/16 02/04/23 documented as of this encounter
--- OUTSIDE RECORDS SUMMARY | 2024-05-18 14:08 | XMS_ITS | Encounter Summary ---
[place] [address] Care Team Providers Care Filling Winder Name Role Phone Ashley Quirogazac Shields APRN Primary Care Provider [phone] Encounter Details Date Type Department Care Team (Late st Contact Info) Description 07/03/2016 External Results Hematology [place] [phone] Matthew Cervantes, DO [address] [place] [address] Social History Tobacco Use Types Packs/Day Years [...] PM EDT Hospital Encounter [place] [phone] Markel Borjas MD [facility] [address] [place] [address] 05/29/2024 2:00 PM EDT - 05/29/2024 2:43 PM EDT Surgery [place] [address] Markel Borjas MD [facility] [address] [place] [address] (OSC MSURG) BONE MARROW BIOPSY AND ASPIRATION; DIAGNOSTIC (WRVU 1.44) 06/23/2024 2:00 PM EST Office Visit Hematology [place] [address] Markel Borjas MD [facility] [place] [address] 03/01/2025 4:15 PM EDT Office Visit Dermatology at [place] [address] [place] [phone] Marek Bonilla MD [address] [place] [address] Scheduled Procedures Name Priority Associated Diagnoses Date/Ti [...] on filedocumented in this encounter Care Teams Filling Winder Relationship Specialty Start Date End Date Deborah Quiroga APRN PCP - General Family Medicine 03/24/16 02/04/23 documented as of this encounter
--- OUTSIDE RECORDS SUMMARY | 2024-05-18 14:08 | XMS_ITS | Encounter Summary ---
Author Organization [facility] [place] [address] Care Team Providers Care Foreign Service Officer Name Role Phone Deborah Quiroga ANURAG Primary Care Provider [phone] Encounter Details Date Type Department Care Team (Late st Contact Info) Description 08/04/2016 External Results Hematology [place] [phone] Alexandrea Greenwood RN Neutropenia, unspecified type Social [...] PM EDT Hospital Encounter Outpatient [place] [phone] Markel Borjas MD [facility] [address] HEMATOLOGY [place] [address] 05/29/2024 2:00 PM EDT - 05/29/2024 2:43 PM EDT Surgery Outpatient [place] [phone] Markel Borjas MD [facility] DR HEMATOLOGY [place] [address] (OSC MSURG) BONE MARROW BIOPSY AND ASPIRATION; DIAGNOSTIC (WRVU 1.44) 06/23/2024 2:00 PM EST Office Visit Hematology [place] [address] Markel Borjas MD [facility] HEMATOLOGY [place] [address] 03/01/2025 4:15 PM EDT Office Visit Dermatology at [place] [address] [place] [address] Marek Bonilla MD [address] [place] [address] Scheduled Procedures Name Priority Associated Diagnoses Date/Ti [...]
--- OUTSIDE RECORDS SUMMARY | 2024-05-18 14:08 | XMS_ITS | Encounter Summary ---
Author Organization [facility] [place] [address] Care Team Providers Care Sccm Administrator Name Role Phone Junaid Deborah Shields APRN Primary Care Provider [phone] Encounter Details Date Type Department Care Team (Latest Contact Info) Description 05/19/2016 11:00 AM EDT Clinical [place] [phone] Nonrheumatic aortic valve stenosis Social History Tobacco [...] PM EDT Hospital Encounter [place] [phone] Markel Borjas MD [facility] [address] [place] [address] 05/29/2024 2:00 PM EDT - 05/29/2024 2:43 PM EDT Surgery [place] [phone] Markel Borajs MD [facility] [address] [place] [address] (OSC MSURG) BONE MARROW BIOPSY AND ASPIRATION; DIAGNOSTIC (WRVU 1.44) 06/23/2024 2:00 PM EST Office Visit Hematology [place] [phone] Markel Borjas MD [facility] [address] [place] [address] 03/01/2025 4:15 PM EDT Office Visit Dermatology at [place] [address] [place] [phone] Marek Bonilla MD [address] [place] [address] Scheduled Procedures Name Priority Associated [...] (Bezet) 448 ms MUSE SYSTEM Calculated P [place] 37 degrees MUSE SYSTEM Calculated R [place] 31 degrees MUSE SYSTEM Calculated T [place] 25 degrees MUSE SYSTEM INTERPRETATION Normal sinus rhythm Normal ECG No previous ECGs available Confirmed by MD Becca, Deangelo ([id number]) on 05/19/2016 5:23:33 PM MUSE SYSTEM 05/19/2016 11:4 3 AM EDT 05/19/2016 5:23 PM EDT Alirio Esparza MD ECG ORDERABLES MUSE SYSTEM documented in this encounter Visit Diagnoses Diagnosis Nonrheumatic aortic valve stenosis Aortic valve disorders documented in this encounter Care Teams Sccm Administrator Relationship Specialty Start Date End Date Deborah Quiroga APRN PCP - General Family Medicine 03/24/16 02/04/23 documented as of this encounter
--- OUTSIDE RECORDS SUMMARY | 2024-05-18 14:08 | XMS_ITS | Encounter Summary ---
[place] [address] Care Team Providers Care Loss Prevention Leader Name Role Phone Deborah Quiroga ANURAG Primary Care Provider [phone] Encounter Details Date Type Department Care Team (Late st Contact Info) Description 09/11/2016 Orders Only Hematology [place] [address] Alexandrea Greenwood RN Social [...] original note were not included. [facility] HEM ONC [facility] [phone] Date: 09/11/16 Patient Name: Purnima Thacker : 1955 Diagnosis: Neutropenia Referral to [site]: [facility] Orders: ? Growth factor: [x] Neulasta 6mg SQ injection x 1 on 09/16/16 Signature: Markel Borjas MD beeper # [id number] Co-signature [if needed]: documented in this encounter Plan of Treatment Upcoming Encounters Date Type Department Care Team (Late st Contact Info) Description 05/29/2024 2:00 PM EDT Hospital Encounter [place] [phone] Markel Borjas MD [facility] [address] [place] [address] 05/29/2024 2:00 PM EDT - 05/29/2024 2:43 PM EDT Surgery [place] [phone] Markel Borjas MD [facility] [address] [place] [address] (OSC MSURG) BONE MARROW BIOPSY AND ASPIRATION; DIAGNOSTIC (WRVU 1.44) 06/23/2024 2:00 PM EST Office Visit Hematology [place] [address] Markel Borjas MD [facility] [address] [place] [address] 03/01/2025 4:15 PM EDT Office Visit Dermatology at [place] [address] [place] [phone] Marek Bonilla MD [address] [place] [address] Scheduled Procedures Name Priority Associated Diagnoses Date/Ti [...] M ? (Age): 1955(61y) Med Rec#: ? [id number] ?Sex: ?M ? Site Loc: ? [facility] ?Ht / Wt: ??(cm)/ (kg) ? Pt. Loc: ?OR ? Study Date: ?? 09/21/2016 ?Pt. Type: Tape: ? Referring: Alirio Francisco Reading: Henrik Yarbrough ([id number]) Mandolin Repairer: Jacobo Patel ([id number]) Interpreting Fellow: Jacobo Patel ([id number]) Diagnosis: *Aortic valve disorders (424.1) CPT Codes: *Echo GAVINO Full (82926) Indication: ?? AVR for severe Rhythm: ? [...] ? Mid-Inferior ?Normal ? Mid-Inferoseptal ?Normal ? Shokan-Septal ? Normal ? Shokan-Anterior ? Normal ? Shokan-Lateral ?Normal ? Shokan-Inferior ? Normal ? Shokan-Tip ?Normal ? This report has been electronically signed by: Henrik Yarbrough M.D. ? 09/22/2016 08:30:41 Images reviewed and interpretation verified [facility] Cardiac Ultrasound Laboratory Procedure Note Henrik Yarbrough MD - 09/22/2016 Procedure: Transesophageal Echocardiogram Patient: ANDREW Mejias DOB(Age): 1955(61y) [facility] Rec#: [id number] Sex: M Site Loc: [facility] Ht / Wt: (cm)/ (kg) Pt. Loc: OR Study Date: 09/21/2016 Pt. Type: Tape: Referring: Alirio Francisco Reading: Henrik Yarbrough ([id number]) Mandolin Repairer: Jacobo Patel ([id number]) Interpreting Fellow: Jacobo Patel ([id number]) Diagnosis: *Aortic valve disorders (424.1) CPT Codes: *Echo GAVINO Full (68198) Indication: AVR for severe Rhythm: Sinus SUMMARY: [...] Normal Mid-Posterolateral Normal Mid-Inferior Normal Mid-Inferoseptal Normal Shokan-Septal Normal Shokan-Anterior Normal Shokan-Lateral Normal Shokan-Inferior Normal Shokan-Tip Normal This report has been electronically signed by: Henrik Yarbrough M.D. 09/22/2016 08:30:41 Images reviewed and interpretation verified [facility] Cardiac Ultrasound Laboratory Unknown ECHO ORDERABLES documented in this encounter Visit Diagnoses Not on filedocumented in this encounter Care Teams Loss Prevention Leader Relationship Specialty Start Date End Date Deborah Quiroga APRN PCP - General Family Medicine 03/24/16 02/04/23 documented as of this encounter
--- OUTSIDE RECORDS SUMMARY | 2024-05-18 14:08 | XMS_ITS | Encounter Summary ---
[place] [address] Care Team Providers Care Ammunition Assembly Laborer Name Role Phone Deborah Quiroga ANURAG Primary Care Provider [phone] Reason for Visit * Reason Onset Date Comments Medical Care Coordination 07/17/2016 Encounter Details Date Type Department Care Team ([facility] Contact Info) Description 07/17/2016 Telephone Hematology [place] [phone] Alexandrea Greenwood RN Medical Care Coordination Social [...] 07/17/2016 12:07 PM EST Message received from systems test technician: Injection/Infusion Referral Call placed to [phone]). Spoke w/ Pasquale. Services to be provided for pt are: Labs @ 10am ([facility]) & Neulasta @ 11am on 07/20/16, CBC only on 07/30/16 Pasquale confirmed they would provide services to pt and I left [facility] for pt to call for appt info. Pt demographics, office note, med list and orders faxed to [facility] & [facility] documented in this encounter Plan of Treatment Upcoming Encounters Date Type Department Care Team (Late st Contact Info) Description 05/29/2024 2:00 PM EDT Hospital Encounter [place] [phone] Markel Borjas MD [facility] DR [place] [address] 05/29/2024 2:00 PM EDT - 05/29/2024 2:43 PM EDT Surgery [place] [phone] Markel Borjas MD [facility] DR [place] [address] (OSC MSURG) BONE MARROW BIOPSY AND ASPIRATION; DIAGNOSTIC (WRVU 1.44) 06/23/2024 2:00 PM EST Office Visit Hematology [place] [phone] Markel Borjas MD [facility] DR [place] [address] 03/01/2025 4:15 PM EDT Office Visit Dermatology at [place] [address] [place] [address] Marek Bonilla MD [address], [address] A DERMATOLOGY [place], [place] [phone] Scheduled Procedures Name Priority Associated Diagnoses Date/Ti me (OSC MSURG) BONE MARROW BIOPSY AND ASPIRATION; DIAGNOSTIC (WRVU 1.44) Anemia, in pt with longstanding neutropenia 05/29/2024 2:00 PM EDT documented as of this encounter Visit Diagnoses Not on filedocumented in this encounter Care Teams Ammunition Assembly Laborer Relationship Specialty Start Date End Date Deborah Quiroga APRN PCP - General Family Medicine 03/24/16 02/04/23 documented as of this encounter
--- OUTSIDE RECORDS SUMMARY | 2024-05-18 14:08 | XMS_ITS | Encounter Summary ---
Author Organization [facility] Address [facility] [place] [address] Care Team Providers Care Manager Procurement Name Role Phone Deborah Quiroga ANURAG Primary Care Provider [phone] Encounter Details Date Type Department Care Team (Late st Contact Info) Description 06/16/2016 Orders Only Hematology [place] [phone] Nitesh Pina Jr., MD [facility] [address] [place] [address] Cyclical neutropenia Social History Tobacco Use Types [...] PM EDT Hospital Encounter Outpatient [place] [address] Markel Borjas MD [facility] [address] [place] [address] 05/29/2024 2:00 PM EDT - 05/29/2024 2:43 PM EDT Surgery [place]patient [place] [address] Markel Borjas MD [facility] [address] [place] [address] (OSC MSURG) BONE MARROW BIOPSY AND ASPIRATION; DIAGNOSTIC (WRVU 1.44) 06/23/2024 2:00 PM EST Office Visit Hematology [place] [address] Markel Borjas MD [facility] [address] [place] [address] 03/01/2025 4:15 PM EDT Office Visit Dermatology at [place] [address] [place] [phone] Marek Bonilla MD [address], [place] [address] Scheduled Procedures Name Priority Associated Diagnoses Date/Ti me (OSC MSURG) BONE MARROW BIOPSY AND ASPIRATION; DIAGNOSTIC (WRVU 1.44) Anemia, in pt with longstanding neutropenia 05/29/2024 2:00 PM EDT documented as of this encounter Visit Diagnoses Diagnosis Cyclical neutropenia Cyclic neutropenia documented in this encounter Care Teams Manager Procurement Relationship Specialty Start Date End Date Deborah Quiroga APRN PCP - General Family Medicine 03/24/16 02/04/23 documented as of this encounter
--- OUTSIDE RECORDS SUMMARY | 2024-05-18 14:08 | XMS_ITS | Encounter Summary ---
Author Organization [place] [address] Care Team Providers Care Irrigation Tax Assessor Collector Name Role Phone Deborah Quiroga APRN Primary Care Provider Encounter Details Date Type Department Care Team (Latest Contact Info) Description 07/10/2016 2:54 PM EST - 07/10/2016 11:59 PM EST [place] [phone] Discharge Disposition: Home Social History Tobacco Use [...] PM EDT Hospital Encounter [place] [phone] Markel Borjas MD [facility] DR [place] [address] 05/29/2024 2:00 PM EDT - 05/29/2024 2:43 PM EDT Surgery [place] [phone] Markel Borjas MD [facility] DR [place] [address] (OSC MSURG) BONE MARROW BIOPSY AND ASPIRATION; DIAGNOSTIC (WRVU 1.44) 06/23/2024 2:00 PM EST Office Visit Hematology [place] [phone] Markel Borjas MD [facility] DR [place] [address] 03/01/2025 4:15 PM EDT Office Visit Dermatology at [place] [address] [place] [address] Marek Bonilla MD [address], [place] [address] Scheduled Procedures Name Priority Associated Diagnoses Date/Ti [...] Report (07/10/2016 3:43 PM EST) Final Diagnosis [id number] ?Location: OPW The signing pathologist has (i) examined the relevant preparation(s) for the specimen(s) and (ii) rendered or confirmed the diagnosis(es). . ? Bone Marrow Final DIAGNOSIS BONE MARROW (PERIPHERAL SMEAR, ASPIRATE SMEAR, TOUCH PREP, CLOT SECTION, CORE BIOPSY); [OSR# [id number], COLLECTED 06/23/2016, 19 SLIDES]: ?? 1. ??Normocellular [...] clonal lymphoproliferative or myeloproliferative ? disorder (OSR# [id number]) ?Chromosome analysis on the marrow aspirate revealed a normal female karyotype; ?46,XX[25] ??(OSR# [id number]) Electronically signed by: ??Mindy CULP, Elian Mustafa [...] 3/uL Band/Seg 0.52 x103/uL; Lymph 0.75 x103/uL; [place] 0.15 x103/uL; Eos 0.01%; Baso 0.01 x10 [...] plasma cells represent 3-4% of the cellularity [facility] ? Polytypic plasma cell staining, high background Lambda ?Polytypic plasma cell staining, high background Block: ? B2 (Core biopsy 2) Fixative: ?? Formalin ANTIBODY: ?? RESULT/COMMENT CD3 ? Scattered small lymphocytes and lymphoid aggregates highlighted CD20 ?Few scattered small lymphocytes stain ( ?? <CD3 in aggregates) CD138 ? Scattered plasma cells represent 3-4% of the cellularity [facility] ? Polytypic plasma cell staining, high [...] CONSULTATION CASE A - 19 slides labeled [id number], collection date 06/23/2016. [id number] Report to: [facility] Surgical Pathology Department [facility], [facility], 2nd Floor [address] [place], [place] ??[address] 07/13/2016 11:38 AM EST [facility] Consult Case 07/10/2016 3:43 PM EST 07/10/2016 3:43 PM EST Nitesh Pina Jr., MD PATHOLOGY/CYTOLOGY O RDERABLES Performing Organization Address City/State/[facility] Co de Phone Number [facility] [place] [phone] documented in this encounter Visit Diagnoses Not on filedocumented in this encounter Care Teams Irrigation Tax Assessor Collector Relationship Specialty Start Date End Date Deborah Quiroga APRN PCP - General Family Medicine 03/24/16 02/04/23 documented as of this encounter
--- OUTSIDE RECORDS SUMMARY | 2024-05-18 14:08 | XMS_ITS | Encounter Summary ---
Author Organization [facility] Address [facility] [place] [address] Care Team Providers Care Hot Strip Mill Supervisor Name Role Phone Deborah Quiroga ANURAG Primary Care Provider [phone] Encounter Details Date Type Department Care Team (Late st Contact Info) Description 07/31/2016 Orders Only Hematology [place] [phone] Alexandrea Greenwood RN Neutropenia, unspecified type Social [...] PM EDT Hospital Encounter [place] [phone] Markel Borjas MD [facility] DR HEMATOLOGY [place] [address] 05/29/2024 2:00 PM EDT - 05/29/2024 2:43 PM EDT Surgery [place] [phone] Markel Borjas MD [facility] DR HEMATOLOGY [place] [address] (OSC MSURG) BONE MARROW BIOPSY AND ASPIRATION; DIAGNOSTIC (WRVU 1.44) 06/23/2024 2:00 PM EST Office Visit Hematology [place] [address] Markel Borjas MD [facility] HEMATOLOGY [place] [address] 03/01/2025 4:15 PM EDT Office Visit Dermatology at [place] [address] [place] [phone] Marek Bonilla MD [address] [place] [address] Scheduled Procedures Name Priority Associated Diagnoses Date/Ti [...] documented in this encounter Care Teams Hot Strip Mill Supervisor Relationship Specialty Start Date End Date Deborah Quiroga APRN PCP - General Family Medicine 03/24/16 02/04/23 documented as of this encounter
--- OUTSIDE RECORDS SUMMARY | 2024-05-18 14:08 | XMS_ITS | Encounter Summary ---
Author Organization [facility] [place] [address] Care Team Providers Care Laborer Demolition Name Role Phone Deborah Quiroga ANURAG Primary Care Provider [phone] Reason for Visit * Reason Onset Date Comments Pre Procedure Call 06/18/2016 Encounter Details Date Type Department Care Team (Late st Contact Info) Description 06/18/2016 Telephone Hematology [place] [address] Alexandrea Greenwood RN Pre Procedure [...] EDT Hospital Encounter Outpatient [place] [phone] Markel Borjas MD [facility] [address] [place] [address] 05/29/2024 2:00 PM EDT - 05/29/2024 2:43 PM EDT Surgery Outpatient [place] [phone] Markel Borjas MD [facility] DR [place] [address] (OSC MSURG) BONE MARROW BIOPSY AND ASPIRATION; DIAGNOSTIC (WRVU 1.44) 06/23/2024 2:00 PM EST Office Visit Hematology [place] [address] Markel Borjas MD [facility] [place] [address] 03/01/2025 4:15 PM EDT Office Visit Dermatology at [place] [address] [facility] [place] [address] Marek Bonilla MD [address] [place] [address] Scheduled Procedures Name Priority Associated Diagnoses Date/Ti me (OSC MSURG) BONE MARROW BIOPSY AND ASPIRATION; DIAGNOSTIC (WRVU 1.44) Anemia, in pt with longstanding neutropenia 05/29/2024 2:00 PM EDT documented as of this encounter Visit Diagnoses Not on filedocumented in this encounter Care Teams Laborer Demolition Relationship Specialty Start Date End Date Deborah Quiroga APRN PCP - General Family Medicine 03/24/16 02/04/23 documented as of this encounter
--- OUTSIDE RECORDS SUMMARY | 2024-05-18 14:08 | XMS_ITS | Encounter Summary ---
[place] [address] Care Team Providers Care Back Roll Lathe Operator Name Role Phone Deborah Quiroga APRN Primary Care Provider [phone] Reason for Visit * Reason Onset Date Comments Prior Authorization 09/11/2016 Neulasta Encounter Details Date Type Department Care Team (Late st Contact Info) Description 09/11/2016 Telephone Hematology [place] [phone] Monica Wick Prior Authorization (Neulasta ) Social [...] covered facility under the members plan. ID# [id number] Call placed to [phone] Rationale: Can you please start a PA [...] [id number]. Spoke w/ Anna Marie Call Reference [id number] Copay: $ Deductible is not met, patient will have out of pocket costs until deductible is met. documented in this encounter Plan of Treatment Upcoming Encounters Date Type Department Care Team (Late st Contact Info) Description 05/29/2024 2:00 PM EDT Hospital Encounter [place] [phone] Markel Borjas MD [facility] [address] [place] [address] 05/29/2024 2:00 PM EDT - 05/29/2024 2:43 PM EDT Surgery [place] [phone] Markel Borjas MD [facility] [address] [place] [address] (OSC MSURG) BONE MARROW BIOPSY AND ASPIRATION; DIAGNOSTIC (WRVU 1.44) 06/23/2024 2:00 PM EST Office Visit Hematology [place] [address] Markel Borjas MD [facility] DR [place] [address] 03/01/2025 4:15 PM EDT Office Visit Dermatology at [place] [address] [place] [address] Marek Bonilla MD [address], [address] DERMATOLOG[address] [place], [place] [phone] Scheduled Procedures Name Priority Associated Diagnoses Date/Ti me (OSC MSURG) BONE MARROW BIOPSY AND ASPIRATION; DIAGNOSTIC (WRVU 1.44) Anemia, in pt with longstanding neutropenia 05/29/2024 2:00 PM EDT documented as of this encounter Visit Diagnoses Not on filedocumented in this encounter Care Teams Back Roll Lathe Operator Relationship Specialty Start Date End Date Deborah Quiroga, SCALE ATTENDANT PCP - General Family Medicine 03/24/16 02/04/23 documented as of this encounter
--- OUTSIDE RECORDS SUMMARY | 2024-05-18 14:08 | XMS_ITS | Encounter Summary ---
[place] [address] Care Team Providers Care Airset Molder Name Role Phone Ashley Quirogan Cornelius ANURAG Primary Care Provider [phone] Encounter Details Date Type Department Care Team (Late st Contact Info) Description 03/24/2016 Notes [place] [phone] Alfa Lua Social History Tobacco Use Types [...] assessments completed: Wadsworth Score: 6/6 IADL: 7/7 Regulatory Affairs Specialist Strength Trials: 18.4, 15.0, 16.8 (right hand dominant) 5 meter walk test in seconds x3: 4.98, 4.88, 4.45 KCCQol: 98% Alfa Lua documented in this encounter Plan of Treatment Upcoming Encounters Date Type Department Care Team (Late st Contact Info) Description 05/29/2024 2:00 PM EDT Hospital Encounter Outpatient [place] [address] Markel Borjas MD [facility] DR HEMATOLOGY [place] [address] 05/29/2024 2:00 PM EDT - 05/29/2024 2:43 PM EDT Surgery Outpatient [place] [address] Markel Borjas MD [facility] DR HEMATOLOGY [place] [address] (OSC MSURG) BONE MARROW BIOPSY AND ASPIRATION; DIAGNOSTIC (WRVU 1.44) 06/23/2024 2:00 PM EST Office Visit [place] [address] Markel Borjas MD [facility] HEMATOLOGY [place] [address] 03/01/2025 4:15 PM EDT Office Visit Dermatology at [address] [phone] Marek Bonilla MD [address], TODD A DERMATOLOGY [place], [place] [address] Scheduled Procedures Name Priority Associated Diagnoses Date/Ti me (OSC MSURG) BONE MARROW BIOPSY AND ASPIRATION; DIAGNOSTIC (WRVU 1.44) Anemia, in pt with longstanding neutropenia 05/29/2024 2:00 PM EDT documented as of this encounter Visit Diagnoses Not on filedocumented in this encounter Care Teams Airset Molder Relationship Specialty Start Date End Date Deborah Quiroga APRN PCP - General Family Medicine 03/24/16 02/04/23 documented as of this encounter
--- OUTSIDE RECORDS SUMMARY | 2024-05-18 14:08 | XMS_ITS | Encounter Summary ---
Author Organization Formerly [facility] Address [facility] [place] [address] Care Team Providers Care Whanau Support Worker Name Role Phone Deborah Quiroga APRN Primary Care Provider [phone] Reason for Visit * Reason Comments Schedule Office Case * Consultation (Routine) - Closed Specialty Diagnoses / Procedures Referred By Contac t Referred To Contact Hematology and Oncology Diagnoses Leukopenia Neutropenia LEUKOPENIA W/NEUTROPENIA Procedures TC PEGFILGRASTIM, 6MG, INJECTION LEUKOPENIA W/NEUTROPENIA Alirio Esparza MD [facility] [place] [address] Mario Alberto Ramos Jr., MD [facility] [address] [place] [address] Referral ID Status Reason Start Date Expiration Date V isits Requested Visits Authorized [id number] Closed Consult, Test & Treat 07/17/2016 07/17/2017 1 1 Encounter Details Date Type Department Care Team (Late st Contact Info) Description 06/09/2016 3:00 PM EST Office Visit Hematology [place] [address] Mario Alberto Ramos Jr., MD [facility] [place] [address] Cyclical neutropenia Social History Tobacco Use Types [...] 06/09/2016 3:00 PM EST Hematology Outpatient Clinic [facility] Hematology Outpatient Consult Note CC: [...] Unknown See Comment Flow Cytometry Report Unknown [id number] ... HematoPathology: Flow Cytometry DIAGNOSIS 1. No [...] of Hematology/Oncology CC: Dr. Hahn (PCP) Dr. Esaprza (CT Surgery) Dr. Escobedo (Cardiology) documented in [...] PM EDT Hospital Encounter [place] [address] Markel Borjas MD [facility] DR [place] [address] 05/29/2024 2:00 PM EDT - 05/29/2024 2:43 PM EDT Surgery [place] [phone] Markel Borjas MD [facility] DR [place] [address] (OSC MSURG) BONE MARROW BIOPSY AND ASPIRATION; DIAGNOSTIC (WRVU 1.44) 06/23/2024 2:00 PM EST Office Visit Hematology [place] [phone] Markel Borjas MD [facility] DR [place] [address] 03/01/2025 4:15 PM EDT Office Visit Dermatology at [place] [address] [place] [phone] Marek Bonilla MD [address] [place] [address] Scheduled Procedures Name Priority Associated Diagnoses Date/Ti [...] (06/09/2016 4:53 PM EST) Flow Cytometry Report [id number] ?Location: The signing pathologist has (i) examined [...] the Clinical Flow Cytometry Laboratory at [facility]. It has not been cleared or [...] high complexity clinical laboratory testing. SPECIMEN PROCESSING [id number] Cells for immunophenotypic analysis were derived from peripheral blood. ??CD45 vs side scatter gating was utilized to identify a lymphoid analysis region that comprises approximately 49-51% of all cells. The following markers were assessed: CD2, CD3, CD4, CD5, CD7, CD8, CD10, CD16, CD19, CD45, CD56, CD57, kappa light chain, and lambda light chain. CLINICAL INFORMATION 60 yo female with neutropenia. LGL panel requested. [facility] 06/09/2016 4:53 PM EST Mario Alberto Ramos Jr., MD PATHOLOGY/CYTOLOGY O RDERABLES [facility] [place] [address] * Scan, Peripheral Blood (06/09/2016 4:53 PM EST) Plat estimate Normal [facility] RBC Morphology Normal [facility] Blood specimen (specimen) 06/09/2016 4:53 PM EST 06/09/2016 5:00 PM EST Narrative Resulting Agency Comment Spec In Lab Mario Alberto Ramos Jr., MD HEMATOLOGY ORDERABLE S [facility] [place] [address] * (ABNORMAL) Differential, Automated (06/09/2016 4:53 PM EST) Neutrophil % 27.7 % [facility] Neutrophil Absolute 0.48(Crit ical) 1.70 - 6.10 x10(3)/mc L [facility] Comment: Matches Previous Results.. This result has been called to NOT CALLED by Jesusita Argueta on 06 09 2016 at 1817, and has not been read back. MATCHES PREVIOUS RESULTS Lymph % 57.2 % [facility] Lymphocytes Abs 1.0 0.9 - 3.2 x10(3)/mc L [facility] Monocyte % 13.3 % [facility] Monocyte Abs 0.2(L) 0.3 - 0.9 x10(3)/mc L [facility] Eos % 0.6 % [facility] Eosinophils Abs 0.0 0.0 - 0.4 x10(3)/mc L [facility] Basophil % 1.2 % [facility] Baso Absolute 0.0 0.0 - 0.1 x10(3)/mc L [facility] Immature Gran % 0.00 % [facility] Comment: Immature granulocytes(IG's)percentage and absolute count will include metamyelocytes, myelocytes, and promyelocytes. Blood smears from CBCs yielding IG's will be scanned manually for concordance. If this scan disagrees with the automated IG or if promyelocytes are noted, a manual differential will be performed. Immature Gran Absolute 0.00 0.00 - 0.04 x10(3)/mc L [facility] Blood specimen (specimen) 06/09/2016 4:53 PM EST 06/09/2016 5:00 PM EST Narrative Resulting Agency Comment Spec In Lab Mario Alberto Ramos Jr., MD HEMATOLOGY ORDERABLE S Performing Organization Address City/[facility]/ZIP Co de Phone Number [facility] [place] [address] * (ABNORMAL) Hemogram (06/09/2016 4:53 PM EST) White Blood Cell 1.7(Criti gabrielle) 4.0 - 9.5 x10(3)/mc L [facility] Red Blood Cell 3.92(L) 4.00 - 5.21 x10(6)/mc L [facility] Hemoglobin 12.4 11.7 - 15.5 gm/dL [facility] Hematocrit 36.7 35.7 - 45.8 % [facility] Mean Cell Volume 93.6 82.6 - 94.4 fL [facility] Mean Cell Hemoglobin 31.6 27.1 - 32.0 pg [facility] Mean Cell Hemoglobin Concentration 33.8 31.7 - 35.0 gm/dL [facility] Platelet 234 145 - 357 x10(3)/mc L [facility] RDW Standard Deviation 39.8 37.0 - 46.0 fL [facility] RDW coefficient of variation 11.8 11.5 - 14.1 % [facility] Mean Platelet Volume 8.6 7.6 - 12.9 fL [facility] NRBC% auto 0.0 % [facility] NRBC Absolute 0.000 0.000 - 0.000 x10(3)/mc L [facility] Blood specimen (specimen) 06/09/2016 4:53 PM EST 06/09/2016 5:00 PM EST Narrative Resulting Agency Comment Spec In Lab Mario Alberto Ramos Jr., MD HEMATOLOGY ORDERABLE S [facility] [place] [address] * Immunophenotyping Flow Cytometry (06/09/2016 4:53 PM EST) Immunophenotyping Flow See Comment [facility] Comment: When completed by the Pathologist, the Flow Cytometry Report ([id number]) will display under the Pathology Results section within [facility]. Specimen of unknown material (specimen) 06/09/2016 4:53 PM EST 06/09/2016 5:00 PM EST Narrative Resulting Agency Comment Spec In Lab Mario Alberto Ramos Jr., MD HEMATOLOGY ORDERABLE S [facility] [place] [address] documented in this encounter Visit Diagnoses Diagnosis Cyclical neutropenia Cyclic neutropenia documented in this encounter Care Teams Whanau Support Worker Relationship Specialty Start Date End Date Deborah Quiroga APRN PCP - General Family Medicine 03/24/16 02/04/23 documented as of this encounter
--- OUTSIDE RECORDS SUMMARY | 2024-05-18 14:08 | XMS_ITS | Encounter Summary ---
Author Organization [facility] Address [facility] [place] [address] Care Team Providers Care Ring Stamper Name Role Phone JunaidAshley hargrovezac Shields APRN Primary Care Provider [phone] Reason for Visit * Auth/Cert Specialty Diagnoses / Procedures Referred By Crispin t Referred To Contact Diagnoses AVS Procedures CARDIAC CATHETERIZATION Referral ID Status Reason Start Date Expiration Date Visits Re quested Visits Authorized [id number] 1 1 Encounter Details Date Type Department Care Team (Late st Contact Info) Description 06/03/2016 6:32 AM EDT - 06/03/2016 1:10 PM EDT Hospital [place] [phone] Anjum Oliveros II, MD [facility] [place] [address] Mario Alberto Escobedo MD [facility] [place] [address] Aortic valve stenosis, unspecified etiology; Nonrheumatic aortic [...] by your doctor, do not take any xtkn-pdu-mmuqcau medicinesor herbal preparations without first discussing this with your doctor or pharmacist. There is the possibility of side effects and interactions when these are combined. Follow Up Care Who to call with questions or problems If there are any questions or problems that you think might be related to your cardiac cath or angioplasty, contact the wig dresser television repair teacher by calling [facility] at . * Patient Instructions* Felicia Corrigan - 06/03/2016 9:33 AM EDT Cardiology Instructions Call your doctor if: Chest pain, dyspnea, pain or swelling in legs occurs. If you have non-emergent questions between now and the time of your follow up appointments: -During 8am-5pm Wednesday through Wednesday call [phone] to speak with a nurse in the cardiology clinic -All other times call [phone] and ask to speak to the canal equipment mechanic television repair teacher. MEDICATIONS - restart your spironolactone, discontinue [...] Appointments: Primary care provider: Cardiology: Deborah Hahn, WINDING LATHE OPERATOR [phone] Follow up as planned or as needed. Dr. Esparza [phone] Other follow-up appointment: Hematology - Dr. Mario [...] PM EDT Hospital Encounter [place] [address] Markel Borjas MD [facility] HEMATOLOGY [place] [address] 05/29/2024 2:00 PM EDT - 05/29/2024 2:43 PM EDT Surgery [place] [phone] Markel Borjas MD [facility] HEMATOLOGY [place] [address] (OSC MSURG) BONE MARROW BIOPSY AND ASPIRATION; DIAGNOSTIC (WRVU 1.44) 06/23/2024 2:00 PM EST Office Visit Hematology [place] [address] Markel Borjas MD [facility] DR HEMATOLOGY [place] [address] 03/01/2025 4:15 PM EDT Office Visit Dermatology at [place] [address] [place] [phone] Marek Bonilla MD [address] [place] [address] Scheduled Procedures Name Priority Associated Diagnoses Date/Ti [...] 11:45 AM EDT) [facility] Blood specimen (specimen) Venous Draw / Unknown 06/03/2016 11:45 AM EDT 06/03/2016 12:12 PM EDT Mario Alberto Escobedo MD CHEMISTRY ORDERABLES Performing Organization Address [facility] Co de Phone Number [facility] [place] [address] * Methylmalonic acid, serum (06/03/2016 11:45 AM EDT) [facility] Methylmalonic Acid (NOVEMBER) 0.21 <=0.40 nmol/mL [facility] Comment: Test Performed by: [place] [address] Manager Of Supply Chain: Raymond Chaudhry II, M.D., Ph.D. Blood specimen (specimen) 06/03/2016 11:45 AM EDT 06/03/2016 1:57 PM EDT Narrative Resulting Agency Comment Spec In Lab Mario Alberto Escobedo MD LAB SEND OUT ORDERAB LES Performing Organization Address City/[facility]/ZIP Co de Phone Number [facility] [place] [address] * Granulocyte Antibody (06/03/2016 11:45 AM EDT) [facility] Granulocyte Ab (NOVEMBER) Negative Not Applicable [facility] Comment: ADDITIONAL INFORMATION Method: Immunofluorescent Assay Performing Laboratory CLIA# [id number] This test was developed and its performance characteristics determined by [facility] in a manner consistent with CLIA requirements. This test has not been cleared or approved by the U.S. Food and Drug Administration. Test Performed by: [address] [address] Manager Of Supply Chain: Raymond Chaudhry II, M.D., Ph.D. Blood specimen (specimen) 06/03/2016 11:45 AM EDT 06/03/2016 1:57 PM EDT Narrative Resulting Agency Comment Spec In Lab Mario Alberto Escobedo MD LAB SEND OUT ORDERAB LES Performing Organization Address [facility]/ZIP Co de Phone Number [facility] [place] [address] * TSH (06/03/2016 11:45 AM EDT) Thyroid Stimulating Hormone 2.18 0.27 - 4.20 mcIU/mL [facility] Blood specimen (specimen) 06/03/2016 11:45 AM EDT 06/03/2016 12:11 PM EDT Narrative Resulting Agency Comment Spec In Lab Mario Alberto Escobedo MD CHEMISTRY ORDERABLES Performing Organization Address [facility] Co de Phone Number [facility] [place] [address] * Homocysteine Total, Plasma (06/03/2016 11:45 AM EDT) Homocystine 9 <=15 mcmol/L [facility] Blood specimen (specimen) 06/03/2016 11:45 AM EDT 06/03/2016 12:11 PM EDT Narrative Resulting Agency Comment Spec In Lab Mario Alberto Escobedo MD CHEMISTRY ORDERABLES Performing Organization Address [facility] Co de Phone Number [facility] [place] [address] * Folate, serum (06/03/2016 11:45 AM EDT) Folate >20.0 4.8 - 24.2 ng/mL [facility] Blood specimen (specimen) 06/03/2016 11:45 AM EDT 06/03/2016 12:04 PM EDT Narrative Resulting Agency Comment Spec In Lab Mario Alberto Escobedo MD CHEMISTRY ORDERABLES Performing Organization Address City/[facility]/ZIP Co de Phone Number [facility] [place] [address] * (ABNORMAL) Sedimentation rate (06/03/2016 11:45 AM EDT) Pathologist [facility] Sedimentation Rate Automated 41(H) 0 - 20 mm/hr [facility] Blood specimen (specimen) 06/03/2016 11:45 AM EDT 06/03/2016 12:04 PM EDT Narrative Resulting Agency Comment Spec In Lab Mario Alberto Escobedo MD HEMATOLOGY ORDERABLE S Performing Organization Address City/[facility]/ZIP Co de Phone Number [facility] [place] [address] * Lactate Dehydrogenase (06/03/2016 11:45 AM EDT) [facility] Lactate Dehydrogenase 164 110 - 220 unit/L [facility] Blood specimen (specimen) 06/03/2016 11:45 AM EDT 06/03/2016 12:11 PM EDT Narrative Resulting Agency Comment Spec In Lab Mario Alberto Escobedo MD CHEMISTRY ORDERABLES Performing Organization Address [facility]/ZIP Co de Phone Number [facility] [place] [address] * Comprehensive metabolic panel (non-fasting) (06/03/2016 11:45 AM EDT) [facility] Glucose 90 65 - 199 mg/dL [facility] Comment:Diabetes: >=200 mg/d L plus symptoms Blood Urea Nitrogen 11 8 - 18 mg/dL [facility] Creatinine 0.83 0.70 - 1.20 mg/dL [facility] Comment: Please note that the pediatric reference intervals supplied above were not validated at [facility]. Results from pediatric patients should be interpreted in conjunction to the patient's age, height and muscle mass. Sodium 143 135 - 145 mmol/L [facility] Potassium 4.0 3.5 - 5.0 mmol/L [facility] Comment: Please note: ??Patients with WBC >100,000 may have falsely elevated Potassium levels. ??For accurate Potassium quantification in these patients send serum separator tube (gold top) for subsequent determinations. ??Contact the Clinical Chemistry Laboratory if there are any questions. Chloride 104 98 - 107 mmol/L [facility] Carbon Dioxide 25 22 - 31 mmol/L [facility] Anion Gap 14 5 - 15 mmol/L [facility] Calcium 9.2 8.5 - 10.5 mg/dL [facility] Protein, Total 7.0 6.1 - 8.0 gm/dL [facility] Albumin 4.0 3.2 - 5.2 gm/dL [facility] Aspartate Aminotransferase 17 0 - 30 unit/L [facility] Alanine Aminotransferase 9 0 - 30 unit/L [facility] Alkaline Phosphatase 81 40 - 104 unit/L [facility] Bilirubin, Total 0.4 0.2 - 1.3 mg/dL [facility] Bilirubin, Direct 0.1 0.0 - 0.3 mg/dL [facility] Est Glomerular [...] the following links into your internet browser. [email or web address] Blood specimen (specimen) 06/03/2016 11:45 AM EDT 06/03/2016 12:11 PM EDT Narrative Resulting Agency Comment Spec In Lab Mario Alberto Escobedo MD CHEMISTRY ORDERABLES [facility] [place] [address] documented in this encounter Visit Diagnoses Diagnosis [...] Hernandez) documented in this encounter Care Teams Ring Stamper Relationship Specialty Start Date End Date Deborah Quiroga, WINDING LATHE OPERATOR PCP - General Family Medicine 03/24/16 02/04/23 documented as of this encounter
--- OUTSIDE RECORDS SUMMARY | 2024-05-18 14:08 | XMS_ITS | Encounter Summary ---
Author Organization [facility] [place] [address] Care Team Providers Care Mixer Operator Helper Hot Metal Name Role Phone Deborah Quiroga ANURAG Primary Care Provider [phone] Encounter Details Date Type Department Care Team (Late st Contact Info) Description 05/22/2016 Orders Only Cardiology at [address] [phone] Chele Randolph PA [facility] [place] [address] Aortic valve stenosis, unspecified etiology Social History [...] PM EDT Hospital Encounter Outpatient [place] [phone] Markel Borjas MD [facility] [place] [address] 05/29/2024 2:00 PM EDT - 05/29/2024 2:43 PM EDT Surgery Outpatient [place] [address] Markel Borjas MD [facility] DR [place] [address] (OSC MSURG) BONE MARROW BIOPSY AND ASPIRATION; DIAGNOSTIC (WRVU 1.44) 06/23/2024 2:00 PM EST Office Visit Hematology [place] [phone] Markel Borjas MD [facility] DR [place] [address] 03/01/2025 4:15 PM EDT Office Visit Dermatology at [place] [address] [place] [address] Marek Bonilla MD [address] [place] [address] Scheduled Procedures Name Priority Associated Diagnoses Date/Ti [...] Modality Other Narrative 06/03/2016 10:13 AM EDT ?[facility] ? Cardiac Catheterization/Intervention Report ? Patient Name: Kirstie, Purnima M. ? Procedure Date: 06/03/2016 ? A #: [id number] ? Primary Physician: Nitesh Escobedo ? Case #: [id number] ? File Name: [id number] ? Catheterization Order Number: [id number] ? [facility] ? Final Report [place], [place] ? Patient Name: ? Purnima M. Kirstie ? ID#: ?[id number] ? : ?1955 ? Procedure Date: ? June 03, 2016 ? Case #: ? [id number] ? Room: ? 1 ? Case Physician: [...] no symptom, no angina (w/i 14 days). [place] ?Cardiovascular Society angina class was 0. This [...] Procedure Note Nitesh Escobedo MD - 09/21/2016 [facility] Cardiac Catheterization/Intervention Report Patient Name: Purnima Thacker Procedure Date: 06/03/2016 A #: [id number] Primary Physician: Nitesh Escobedo Case #: [id number] File Name: [id number] Catheterization Order Number: [id number] [facility] FinalReport [place], [place] Patient Name: Purnima Thacker ID#:[id number] :1955 Procedure Date: June 03, 2016 Case [...] with: no symptom, no angina (w/i 14 days).[place] [employer] Society angina class was 0. This [...] etiology documented in this encounter Care Teams Mixer Operator Helper Hot Metal Relationship Specialty Start Date End Date Deborah Quiroga, ANURAG PCP - General Family Medicine 03/24/16 02/04/23 documented as of this encounter
--- OUTSIDE RECORDS SUMMARY | 2024-05-18 14:08 | XMS_ITS | Encounter Summary ---
Author Organization [facility] [place] [address] Care Team Providers Care Wrapper Hands Sprayer Name Role Phone Deborah Quiroga ANURAG Primary Care Provider [phone] Encounter Details Date Type Department Care Team (Late st Contact Info) Description 07/31/2016 External Results Hematology [place] [phone] Alexandrea Greenwood RN Neutropenia, unspecified type Social [...] PM EDT Hospital Encounter Outpatient [place] [phone] Markel Borjas MD [facility] DR HEMATOLOGY [place] [address] 05/29/2024 2:00 PM EDT - 05/29/2024 2:43 PM EDT Surgery [place]patient [place] [phone] Markel Borjas MD [facility] DR HEMATOLOGY [place] [address] (OSC MSURG) BONE MARROW BIOPSY AND ASPIRATION; DIAGNOSTIC (WRVU 1.44) 06/23/2024 2:00 PM EST Office Visit Hematology [place] [address] Markel Borjas MD [facility] HEMATOLOGY [place] [address] 03/01/2025 4:15 PM EDT Office Visit Dermatology at [place] [address] [place] [phone] Marek Bonilla MD [address] [place] [address] Scheduled Procedures Name Priority Associated Diagnoses Date/Ti [...] type documented in this encounter Care Teams Wrapper Hands Sprayer Relationship Specialty Start Date End Date Deborah Quiroga, ANURAG PCP - General Family Medicine 03/24/16 02/04/23 documented as of this encounter
--- OUTSIDE RECORDS SUMMARY | 2024-05-18 14:09 | XMS_ITS | Encounter Summary ---
Author Organization [facility] [place] [address] Care Team Providers Care Relay Dispatcher Name Role Phone EitanDanni ANURAG Primary Care Provider [phone] [phone] Encounter Details Date Type Department Care Team (Late st Contact Info) Description 01/22/2014 Telephone Cardiology at [address] [phone] Cynthia Arrington LPN Social History Tobacco Use [...] LPN - 01/23/2014 2:39 PM EDT This policy writer typist did not receive a call back from [...] PM EDT Hospital Encounter [place] [phone] Markel Borjas MD [facility] DR HEMATOLOG[place] [address] 05/29/2024 2:00 PM EDT - 05/29/2024 2:43 PM EDT Surgery [place] [phone] Markel Borjas MD [facility] [place]AT[place] [address] (OSC MSURG) BONE MARROW BIOPSY AND ASPIRATION; DIAGNOSTIC (WRVU 1.44) 06/23/2024 2:00 PM EST Office Visit Hematology [place] [phone] Markel Borjas MD [facility] HEMATOLOGY [place] [address] 03/01/2025 4:15 PM EDT Office Visit Dermatology at [address] [place] [address] Marek Bonilla MD [address], TODD A DERMATOLOGY [place], [place] [address] Scheduled Procedures Name Priority Associated Diagnoses Date/Ti me (OSC MSURG) BONE MARROW BIOPSY AND ASPIRATION; DIAGNOSTIC (WRVU 1.44) Anemia, in pt with longstanding neutropenia 05/29/2024 2:00 PM EDT documented as of this encounter Visit Diagnoses Not on filedocumented in this encounter Care Teams Relay Dispatcher Relationship Specialty Start Date End Date Danni Laird APRN [address] [place], [place] [address] [address] PCP - General 01/23/14 11/11/14 documented as of this encounter
--- OUTSIDE RECORDS SUMMARY | 2024-05-18 14:09 | XMS_ITS | Encounter Summary ---
Author Organization [facility] [place] [address] Care Team Providers Care Blower Operator Name Role Phone Eitan Danni ANURAG Primary Care Provider [phone] Encounter Details Date Type Department Care Team (Late st Contact Info) Description 01/23/2014 9:25 AM EDT - 01/23/2014 10:25 AM EDT Surgery [place] [place] [address] Alan Jacobson MD [facility] [place] [address] CARDIAC CATHETERIZATION Social History Tobacco Use Types [...] by your doctor, do not take any qisb-thk-ujmeinf medicines or herbal preparations without first discussing this with your doctor or pharmacist. There is the possibility of side effect and interactions when these are combined. Follow up Care Who to Call with Questions or Problems If there are any questions or problems that you think might be related to your cardiac cath or angioplasty, contact the core shaper special education professor by calling [facility] at . documented in this encounter [...] PM EDT Hospital Encounter [place] [address] Markel Borjas MD [facility] DR HEMATOLOGY [place] [address] 05/29/2024 2:00 PM EDT - 05/29/2024 2:43 PM EDT Surgery [place] [address] Markel Borjas MD [facility] DR HEMATOLOGY [place] [address] (OSC MSURG) BONE MARROW BIOPSY AND ASPIRATION; DIAGNOSTIC (WRVU 1.44) 06/23/2024 2:00 PM EST Office Visit Hematology [place] [address] Markel Borjas MD [facility] DR HEMATOLOGY [place] [address] 03/01/2025 4:15 PM EDT Office Visit Dermatology at [place] [address] [place] [phone] Marek Bonilla MD [address], [address] DERMATOLOGY [place], [place] [phone] Scheduled Procedures Name Priority Associated Diagnoses Date/Ti [...] ? ANDREW Mejias ?(Age): 1955(58) Med Rec#: ?[id number] ? Sex: ?F ? [place] [place] Ht / Wt: ??158(cm)/93(kg) Pt. Loc: ? Adult Floor ?BSA: ?2.02 Study Date: ?01/23/2014 ? Pt. Type: Inpatient Tape: ? Referring: Lee Kincaid ([id number]) Referring: ANNALISA Pick And Shovel Man: Miguel Beverly Diagnosis:CPT Code(s): ??Echo Full (16338), ??Spectral Doppler (79787), Color Doppler (95109), Indication(s): ??Aortic stenosis Rhythm: Sinus HR ?BP [...] ? Mid-Inferior ?Hypokinetic ? Mid-Inferoseptal ?Hypokinetic ? [place]-Septal ? Hypokinetic ? [place]-Anterior ? Hypokinetic ? [place]-Lateral ?Hypokinetic ? [place]-Inferior ? Hypokinetic ? [place]-Tip ?Hypokinetic ? Chambers ?Value ?Units (Range) ? [...] Patient: ANDREW Mejias (Age): 1955(58) Med Rec#: [id number] Sex: F [place] Loc[place] [facility] [place] Ht / Wt: 158(cm)/93(kg) Pt. Loc: Adult Floor BSA: 2.02 Study Date: 01/23/2014 Pt. Type: Inpatient Tape: Referring: Lee Kincaid ([id number]) Referring: ANNALISA Pick And Shovel Man: Miguel Beverly Diagnosis:CPT Code(s): Echo Full (91314), Spectral Doppler (38006), Color Doppler (88419), Indication(s): Aortic stenosis Rhythm: Sinus HR BP [...] Hypokinetic Mid-Posterolateral Hypokinetic Mid-Inferior Hypokinetic Mid-Inferoseptal Hypokinetic [place]-Septal Hypokinetic [place]-Anterior Hypokinetic [place]-Lateral Hypokinetic [place]-Inferior Hypokinetic [place]-Tip Hypokinetic Chambers Value Units (Range) IVSd 2D [...] RN) documented in this encounter Care Teams Blower Operator Relationship Specialty Start Date End Date Danni Laird APRN [address] [place], [place] [address] [address] PCP - General 01/23/14 11/11/14 documented as of this encounter
--- OUTSIDE RECORDS SUMMARY | 2024-05-18 14:09 | XMS_ITS | Encounter Summary ---
Author Organization [facility] [place] [address] Care Team Providers Care Vendor Management Specialist Name Role Phone Mitchell Wilkes MD Primary Care Provider [phone] Encounter Details Date Type Department Care Team (Late st Contact Info) Description 01/19/2014 Orders Only Cardiology at [address] [phone] Chele Randolph PA [facility] [place] [address] Cardiomyopathy (Primary Dx) Social History [...] PM EDT Hospital Encounter [place]patient [place] [address] Markel Borjas MD [facility] [address] [place] [address] 05/29/2024 2:00 PM EDT - 05/29/2024 2:43 PM EDT Surgery [place]patient [place] [address] Markel Borjas MD [facility] [address] [place] [address] (OSC MSURG) BONE MARROW BIOPSY AND ASPIRATION; DIAGNOSTIC (WRVU 1.44) 06/23/2024 2:00 PM EST Office Visit Hematology [place] [address] Markel Borjsa MD [facility] [address] [place] [address] 03/01/2025 4:15 PM EDT Office Visit Dermatology at [place] [address] [place] [phone] Marek Bonilla MD [address], [place] [address] Scheduled Procedures Name Priority Associated Diagnoses Date/Ti [...] cardiomyopathies documented in this encounter Care Teams Vendor Management Specialist Relationship Specialty Start Date End Date Mitchell Wilkes MD [facility] PCP - General 06/24/10 01/19/14 documented as of this encounter
--- OUTSIDE RECORDS SUMMARY | 2024-05-18 14:09 | XMS_ITS | Encounter Summary ---
[place] [address] Care Team Providers Care Agricultural Chemist Name Role Phone Mitchell Wilkes MD Primary Care Provider Reason for Visit * Reason Onset Date Comments Other 01/18/2014 Encounter Details Date Type Department Care Team (Late st Contact Info) Description 01/18/2014 Telephone Cardiology at [address] [phone] Jesusita Garces Other Social History Tobacco Use [...] PM EDT Hospital Encounter [place] [address] Markel Borjas MD [facility] [address] [place] [address] 05/29/2024 2:00 PM EDT - 05/29/2024 2:43 PM EDT Surgery [place] [address] Markel Borjas MD [facility] [address] [place] [address] (OSC MSURG) BONE MARROW BIOPSY AND ASPIRATION; DIAGNOSTIC (WRVU 1.44) 06/23/2024 2:00 PM EST Office Visit Hematology [place] [phone] Markel Borjas MD [facility] [address] [place] [address] 03/01/2025 4:15 PM EDT Office Visit Dermatology at [facility] [address] [place] [address] Marek Bonilla MD [address], [place] [address] Scheduled Procedures Name Priority Associated Diagnoses Date/Ti me (OSC MSURG) BONE MARROW BIOPSY AND ASPIRATION; DIAGNOSTIC (WRVU 1.44) Anemia, in pt with longstanding neutropenia 05/29/2024 2:00 PM EDT documented as of this encounter Visit Diagnoses Not on filedocumented in this encounter Care Teams Agricultural Chemist Relationship Specialty Start Date End Date Mitchell Wilkes MD [facility] PCP - General 06/24/10 01/19/14 documented as of this encounter
--- OUTSIDE RECORDS SUMMARY | 2024-05-18 14:09 | XMS_ITS | Encounter Summary ---
Author Organization [facility] Address [facility] [place] [address] Care Team Providers Care Soapstoner Name Role Phone EitanMagnusDanni ANURAG Primary Care Provider [phone] Encounter Details Date Type Department Care Team (Latest Contact Info) Description 01/23/2014 7:45 AM EDT - 01/23/2014 5:50 PM EDT Hospital Encounter [place] [address] Alan Jacobson MD [facility] [place] [address] Cardiomyopathy; SOB (shortness of breath) Discharge Disposition: [...] by your doctor, do not take any dlmf-iwg-dpokxup medicines or herbal preparations without first discussing this with your doctor or pharmacist. There is the possibility of side effect and interactions when these are combined. Follow up Care Who to Call with Questions or Problems If there are any questions or problems that you think might be related to your cardiac cath or angioplasty, contact the purchasing associate exceptional children teacher assistant by calling [facility] at . documented in this encounter [...] EDT Hospital Encounter Outpatient [place] [address] Markel Borjas MD [facility] DR [place] [address] 05/29/2024 2:00 PM EDT - 05/29/2024 2:43 PM EDT Surgery Outpatient [place] [address] Markel Borjas MD [facility] DR [place] [address] (OSC MSURG) BONE MARROW BIOPSY AND ASPIRATION; DIAGNOSTIC (WRVU 1.44) 06/23/2024 2:00 PM EST Office Visit Hematology [place] [address] Markel Borjas MD [facility] DR [place] [address] 03/01/2025 4:15 PM EDT Office Visit Dermatology at [place] [address] [place] [address] Marek Bonilla MD [address], [address] DERMATOLOGY [place], [place] [address] Scheduled Procedures Name Priority Associated Diagnoses Date/Ti [...] Transthoracic(Leb) (01/23/2014 3:17 PM EDT) EF 50 [employer] Anatomical Region Laterality Modality Other 01/23/2014 Narrative 01/23/2014 4:35 PM EDT Procedure: ? Transthoracic Echocardiogram Patient: ? ANDREW ECHOLS M ?(Age): 1955(58) Med Rec#: ?[id number] ? Sex: ?F ? [place] [place] Ht / Wt: ??158(cm)/93(kg) Pt. Loc: ? Adult Floor ?BSA: ?2.02 Study Date: ?01/23/2014 ? Pt. Type: Inpatient Tape: ? Referring: Lee Kincaid ([id number]) Referring: ANNALISA Fermenting Cellar Dropper: Miguel Beverly Diagnosis:CPT Code(s): ??Echo Full (83080), ??Spectral Doppler (25580), Color Doppler (89274), Indication(s): ??Aortic stenosis Rhythm: Sinus HR ?BP [...] ? Mid-Inferior ?Hypokinetic ? Mid-Inferoseptal ?Hypokinetic ? [place]-Septal ? Hypokinetic ? [place]-Anterior ? Hypokinetic ? [place]-Lateral ?Hypokinetic ? [place]-Inferior ? Hypokinetic ? [place]-Tip ?Hypokinetic ? Chambers ?Value ?Units (Range) ? [...] 01/23/2014 16:34:37 Images reviewed and interpretation verified [facility] Cardiac Ultrasound Laboratory Procedure Note Lee Kincaid MD - 01/23/2014 Procedure: Transthoracic Echocardiogram Patient: ANDREW Mejias (Age): 1955(58) Med Rec#: [id number] Sex: F [place] [facility] [place] Ht / Wt: 158(cm)/93(kg) Pt. Loc: Adult Floor BSA: 2.02 Study Date: 01/23/2014 Pt. Type: Inpatient Tape: Referring: Lee Kincaid ([id number]) Referring: ANNALISA Fermenting Cellar Dropper: Miguel Beverly Diagnosis:CPT Code(s): Echo Full (95063), Spectral Doppler (61585), Color Doppler (35217), Indication(s): Aortic stenosis Rhythm: Sinus HR BP [...] Hypokinetic Mid-Posterolateral Hypokinetic Mid-Inferior Hypokinetic Mid-Inferoseptal Hypokinetic [place]-Septal Hypokinetic [place]-Anterior Hypokinetic [place]-Lateral Hypokinetic [place]-Inferior Hypokinetic [place]-Tip Hypokinetic Chambers Value Units (Range) IVSd 2D [...] 01/23/2014 16:34:37 Images reviewed and interpretation verified [facility] Cardiac Ultrasound Laboratory Lee Kincaid MD [...] RN) documented in this encounter Care Teams Soapstoner Relationship Specialty Start Date End Date Danni Laird APRN [address] [place] [address] PCP - General 01/23/14 11/11/14 documented as of this encounter
--- OUTSIDE RECORDS SUMMARY | 2024-05-18 14:09 | XMS_ITS | Encounter Summary ---
[place] [address] Care Team Providers Care Mold Washer Name Role Phone Jerel Sofia Garcia APRN Primary Care Provider [phone] Encounter Details Date Type Department Care Team (Latest Contact Info) Description 11/12/2014 8:10 AM EDT - 11/12/2014 11:59 PM EDT Hospital [place] [phone] CLINIC, DR ABE Burrell, Antelmo Porter MD [facility] [place] [address] Discharge Disposition: Home Social History Tobacco Use [...] PM EDT Hospital Encounter [place]patient [place] [address] Markel Borjas MD [facility] DR HEMATOLOGY [place] [address] 05/29/2024 2:00 PM EDT - 05/29/2024 2:43 PM EDT Surgery [place] [address] Markel Borjas MD [facility] DR HEMATOLOGY [place] [address] (OSC MSURG) BONE MARROW BIOPSY AND ASPIRATION; DIAGNOSTIC (WRVU 1.44) 06/23/2024 2:00 PM EST Office Visit Hematology [place] [address] Markel Borjas MD [facility] DR HEMATOLOGY [place] [address] 03/01/2025 4:15 PM EDT Office Visit Dermatology at [place] [address] [place] [phone] Marek Bonilla MD [address], [address] DERMATOLOGY [place], [place] [address] Scheduled Procedures Name Priority Associated Diagnoses Date/Ti [...] mLs documented in this encounter Care Teams Mold Washer Relationship Specialty Start Date End Date Sofia Beltrán APRN [address] [place] [address] PCP - General 11/12/14 03/23/16 documented as of this encounter
--- OUTSIDE RECORDS SUMMARY | 2024-05-18 14:09 | XMS_ITS | Encounter Summary ---
Author Organization [facility] Address [facility] Erika [facility] [place] [place] [address] Care Team Providers Care Fur Remodeler Name Role Phone Danni Laird SINGING MESSENGER Primary Care Provider [phone] Encounter Details Date Type Department Care Team (Late st Contact Info) Description 01/23/2014 Orders Only Cardiology at [address] [phone] Lee Kincaid MD [facility] [place] [address] SOB (shortness of breath) (Primary Dx) Social [...] PM EDT Hospital Encounter [place] [address] Markel Borjas MD [facility] HEMATOLOGY [place] [address] 05/29/2024 2:00 PM EDT - 05/29/2024 2:43 PM EDT Surgery [place] [address] Markel Borjas MD [facility] DR HEMATOLOGY [place] [address] (OSC MSURG) BONE MARROW BIOPSY AND ASPIRATION; DIAGNOSTIC (WRVU 1.44) 06/23/2024 2:00 PM EST Office Visit Hematology [place] [address] Markel Borjas MD [facility] DR HEMATOLOGY [place] [address] 03/01/2025 4:15 PM EDT Office Visit Dermatology at [place] [address] [place] [address] Marek Bonilla MD [address], [place] [address] Scheduled Procedures Name Priority Associated Diagnoses Date/Ti [...] KIRSTIE ONESIMO M ?(Age): 1955(58) Med Rec#: ?[id number] ? Sex: ?F ? Site Loc: [facility] [place] ? Ht / Wt: ??158(cm)/93(kg) Pt. Loc: ? Adult Floor ?BSA: ?2.02 Study Date: ?01/23/2014 ? Pt. Type: Inpatient Tape: ? Referring: Lee Kincaid ([id number]) Referring: ANNALISA Bandmill Operator: Miguel Beverly Diagnosis:CPT Code(s): ??Echo Full (15810), ??Spectral Doppler (77438), Color Doppler (00104), Indication(s): ??Aortic stenosis Rhythm: Sinus HR ?BP [...] ? Mid-Inferior ?Hypokinetic ? Mid-Inferoseptal ?Hypokinetic ? [place]-Septal ? Hypokinetic ? [place]-Anterior ? Hypokinetic ? [place]-Lateral ?Hypokinetic ? [place]-Inferior ? Hypokinetic ? [place]-Tip ?Hypokinetic ? Chambers ?Value ?Units (Range) ? [...] 01/23/2014 16:34:37 Images reviewed and interpretation verified [facility] Cardiac Ultrasound Laboratory Procedure Note Lee Kincaid MD - 01/23/2014 Procedure: Transthoracic Echocardiogram Patient: KIRSTIE Mejias (Age): 1955(58) Med Rec#: [id number] Sex: F Site Loc: [facility] [place] Ht / Wt: 158(cm)/93(kg) Pt. Loc: Adult Floor BSA: 2.02 Study Date: 01/23/2014 Pt. Type: Inpatient Tape: Referring: Lee Kincaid ([id number]) Referring: AUSTINELIZABETHGerman Bandmill Operator: Miguel Beverly Diagnosis:CPT Code(s): Echo Full (26129), Spectral Doppler (74002), Color Doppler (59210), Indication(s): Aortic stenosis Rhythm: Sinus HR BP [...] Hypokinetic Mid-Posterolateral Hypokinetic Mid-Inferior Hypokinetic Mid-Inferoseptal Hypokinetic [place]-Septal Hypokinetic [place]-Anterior Hypokinetic [place]-Lateral Hypokinetic [place]-Inferior Hypokinetic [place]-Tip Hypokinetic Chambers Value Units (Range) IVSd 2D [...] 01/23/2014 16:34:37 Images reviewed and interpretation verified [facility] Cardiac Ultrasound Laboratory Lee Kincaid MD ECHO ORDERABLES documented in this encounter Visit Diagnoses Diagnosis SOB (shortness of breath)- Primary Shortness of breath documented in this encounter Care Teams Fur Remodeler Relationship Specialty Start Date End Date Danni Laird APRN [address] [place] [address] PCP - General 01/23/14 11/11/14 documented as of this encounter
--- OUTSIDE RECORDS SUMMARY | 2024-05-23 14:04 | XMS_ITS | Encounter Summary ---
Author Organization [facility] [place] [address] Care Team Providers Care Director Home Name Role Phone Magdalena Acosta MD Primary Care Provider [phone] Encounter Details Date Type Department Care Team (Late st Contact Info) Description 05/18/2024 Interpretation Only [address] [phone] Magdalena Acosta MD [address] [place], [place] [phone] Social History Tobacco Use Types Packs/Day Years [...] Team (Late st Contact Info) Description 06/05/2024 2:00 PM EST Hospital Encounter [place] [phone] Markel Borjas MD [facility] [address] H[place] [address] 06/05/2024 2:00 PM EST - 06/05/2024 3:00 PM EST Surgery [place] [phone] Markel Borjas MD [facility] DR HEMATOLOG[place] [address] (OSC MSURG) BONE MARROW BIOPSY AND ASPIRATION; DIAGNOSTIC (WRVU 1.44) 06/23/2024 2:00 PM EST Office Visit [place] [phone] Markel Borjas MD [facility] H[place] [address] 03/01/2025 4:15 PM EDT Office Visit Dermatology at [place] [address] [facility] [place] [address] Marek Bonilla MD [address], TODD A DERMATOLOGY [place], [place] [id number] Scheduled Procedures Name Priority Associated Diagnoses Date/Ti me (OSC MSURG) BONE MARROW BIOPSY AND ASPIRATION; DIAGNOSTIC (WRVU 1.44) Anemia, in pt with longstanding neutropenia 06/05/2024 2:00 PM EST documented as of this encounter Procedures Procedure Name Priority Date/Time Associated Diagnosis Comments MAMMO SCREENING CAD BILATERAL (CH) Routine 05/18/2024 11:21 AM EDT documented in this encounter Results * MAMMO SCREENING CAD BILATERAL (CH) (05/18/2024 11:21 AM EDT) PT CLASS O RAD ADMITDTTM [id number] RAD PT RAD INFO [id number]^Dave ^Magdalena RAD EXAM DESC MADDSCCH^MG Mammo Digital Screening Bilateral.^RIS RAD WORKSTATION ID RADDRIMAGE RAD Anatomical Region Laterality Modality Other 05/18/2024 11:2 1 AM EDT Impressions 05/18/2024 3:05 PM EDT BI-RADS Category 1: Negative RECOMMENDATION: Routine mammography screening * ??Regular screening mammograms starting at age 40 reduce the risk of from breast cancer. * ??Individuals should discuss the risks and benefits with their provider to determine their preferred breast cancer screening schedule, and at what age screening should stop. * ??Individuals should report any breast changes to a health care provider right away. * ??Some Individuals, because of their family history, a genetic tendency, or other factors, should consider being screened with annual breast MRI as well as with mammograms. * ??Screening mammography may not detect 10-15% of?breast cancers. Thank you for letting us participate in the care of this patient. ??If you are a health care provider and have any questions regarding this report, please contact the number below. ??For patients who have questions please contact the health menagerie caretaker that requested your imaging first. ? Electronically signed by: Rocael Villatoro MD, [facility] ([phone]), at 05/18/2024 3:[address] ??[id number] Narrative 05/18/2024 3:05 PM EDT EXAMINATION: MG Mammo Digital Screening Bilateral. REASON FOR EXAM: Screening Family history of breast cancer: Maternal aunt Reproductive history: Nulliparous No personal history of breast cancer. COMPARISON: Previous mammograms were reviewed. TECHNIQUE: ??CC and MLO views were obtained of BOTH breasts. 2D and 3D tomosynthesis images were obtained. Computer aided detection was used FINDINGS: There are no suspicious microcalcifications, masses, or areas of distortion. No changes compared to prior studies. BREAST DENSITY: The breasts are almost entirely fatty. Procedure Note Rocael Villatoro MD - 05/18/2024 EXAMINATION: MG Mammo Digital Screening Bilateral. REASON FOR EXAM: Screening Family history of breast cancer: Maternal aunt Reproductive history: Nulliparous No personal history of breast cancer. COMPARISON: Previous mammograms were reviewed. TECHNIQUE: CC and MLO views were obtained of BOTH breasts. 2D and 3D tomosynthesis images were obtained. Computer aided detection was used FINDINGS: There are no suspicious microcalcifications, masses, or areasof distortion. No changes compared to prior studies. BREAST DENSITY: The breasts are almost entirely fatty. IMPRESSION BI-RADS Category 1: Negative RECOMMENDATION: Routine mammography screening * Regular screening mammograms starting at age 40 reduce the risk ofdeath from breast cancer. * Individuals should discuss the risks and benefits with their providerto determine their preferred breast cancer screening schedule, and at whatage screening should stop. * Individuals should report any breast changes to a health care providerright away. * Some Individuals, because of their family history, a genetic tendency,or other factors, should consider being screened with annual breast MRI aswell as with mammograms. * Screening mammography may not detect 10-15% of?breast cancers. Thank you for letting us participate in the care of this patient. If youare a health care provider and have any questions regarding this report,please contact the number below. For patients who have questions please contactthe health menagerie caretaker that requested your imaging first. Electronically signed by: Rocael Villatoro MD, [facility]([phone]), at 05/18/2024 3:05 [place] [address] Magdalena Acosta MD PACS IMAGES documented in this encounter Visit Diagnoses Not on filedocumented in this encounter Care Teams Director Home Relationship Specialty Start Date End Date Magdalena Acosta MD [address] [place] [address] PCP - General Family Medicine 02/05/23 documented as of this encounter
--- OUTSIDE RECORDS SUMMARY | 2024-05-23 14:04 | XMS_ITS | Encounter Summary ---
Author Organization [facility] Address [address] [place] [address] Care Team Providers Care Agricultural Real Estate Agent Name Role Phone Scott, Ashley WILLIAM Primary Care Provider [phone] Encounter Details Date Type Department Care Team (Late st Contact Info) Description 03/21/2024 Lab Requisition [facility] Pathology & Laboratory Medicine - [address] [address] Consuelo Guerrero, DO [address] [place], [place] [address] Encounter for other general examination Social History [...] 13:00 EDT) LORY Negative 03/21/2024 22:[address] [facility] Blood VENOUS BLOOD / Unknown 03/21/2024 13:00 EDT 03/21/2024 21:51 EDT Consuelo Guerrero DO BLOOD BANK TESTS [facility] [address] [place] [address] documented in this encounter Visit Diagnoses Diagnosis Encounter for other general examination documented in this encounter Care Teams Agricultural Real Estate Agent Relationship Specialty Start Date End Date Ashley Chavez ARNP [address] [place] [address] PCP - General 07/11/10 documented as of this encounter
--- OUTSIDE RECORDS SUMMARY | 2024-05-23 14:04 | XMS_ITS | Encounter Summary ---
Author Organization [facility] Address [address] [place] [address] Care Team Providers Care Security Alarm Technician Name Role Phone Ashley Chavez Primary Care Provider [phone] Encounter Details Date Type Department Care Team (Late st Contact Info) Description 05/12/2022 Lab Requisition [facility] Pathology & Laboratory Medicine - [address] [address] Outr Resulting Lab, Provider Social History Tobacco [...] 14:32 EDT) Hold Hold 05/12/2022 22:46 EDT [facility] Blood VENOUS BLOOD / Unknown 05/12/2022 14:32 EDT 05/12/2022 21:40 EDT Provider Outr Resulting Lab LAB INFO SER VICE AND SUPPORT & PHONE RESULT Performing Organization Address [facility]/ZIP Co de Phone Number [facility] [address] [place] [address] * (ABNORMAL) HOMOCYSTEINE (05/12/2022 14:32 EDT) Homocysteine 14.7(H) 5.0 - 13.9 umol/L 05/13/2022 9:05 EDT [facility] Comment:Results may be false ly elevated if sample is not collected on ice or is not removed from cells within 1 hour of collection. Blood VENOUS BLOOD / Unknown 05/12/2022 14:32 EDT 05/12/2022 21:40 EDT Narrative [facility] - 05/13/2022 9:05 [...] BLOOD GAS ORDERABLES Performing Organization Address [facility] Co de Phone Number [facility] [address] [place] [address] * HAPTOGLOBIN (05/12/2022 14:32 EDT) Pathologist [facility] Haptoglobin 138 32 - 197 mg/dL 05/13/2022 9:55 EDT [facility] Blood VENOUS BLOOD / Unknown 05/12/2022 14:32 EDT 05/12/2022 21:36 EDT Provider Outr Resulting Lab CHEMISTRY & BLOOD GAS ORDERABLES Performing Organization Address [facility] Co de Phone Number [facility] [address] [place] [address] * (ABNORMAL) ANTI NUCLEAR AB (FRANCISCO), IFA (05/12/2022 14:32 EDT) FRANCISCO Interpretation Positive(A) Negative 05/13/2022 14:44 EDT [facility] Comment: Result is [...] Pattern 1 1:5120 Speckled 05/13/2022 14:44 EDT [facility] Blood VENOUS BLOOD / Unknown 05/12/2022 14:32 EDT 05/12/2022 21:36 EDT Narrative [facility] - 05/13/2022 14:44 EDT Results were obtained with the INOVA NOVA Lite HEp-2 FRANCISCO Kit by indirect immunofluorescence. Provider Outr Resulting Lab IMMUNOLOGY A ND SEROLOGY ORDERABLES [facility] [address] [place] [address] documented in this encounter Visit Diagnoses Not on filedocumented in this encounter Care Teams Security Alarm Technician Relationship Specialty Start Date End Date Ashley Chavez ARNP [address] [place] [address] PCP - General 07/11/10 documented as of this encounter
--- OUTSIDE RECORDS SUMMARY | 2024-05-23 14:04 | XMS_ITS | Encounter Summary ---
Author Organization [facility] Address [address] [place] [address] Care Team Providers Care Swing Grinder Name Role Phone Unavailable Primary Care Provider Unavailabl e Encounter Details Date Type Department Care Team (Late st Contact Info) Description 04/20/2005 Results Only [facility] - Maple conversion [address] [place] [address] Ziggy Valiente MD [address] [place] [id number] Social History Tobacco Use Types Packs/Day Years [...] ? PURNIMA THACKER ? Accession #: ? [id number] ? : ? 1955 (Age: 49) ??F [...] correlation with endoscopic appearance is recommended. (Dr. Chino)/[facility] Document reviewed and electronically signed by: [...] entirely submitted in one cassette. ??(Arabella Santos)/[facility] End of Report [facility] 04/20/2005 04/21/2005 15: 04 EDT Ziggy Vailente MD PATHOLOGY ORDERABLES [facility] [address] [place] [address] documented in this encounter Visit Diagnoses Not on filedocumented in this encounter
--- OUTSIDE RECORDS SUMMARY | 2024-05-23 14:04 | XMS_ITS | Encounter Summary ---
Author Organization [facility] Address [address] [place] [address] Care Team Providers Care Steam Locomotive Firer/Fireman Name Role Phone Unavailable Primary Care Provider Unavailabl e Encounter Details Date Type Department Care Team (Late st Contact Info) Description 07/08/2010 Results Only [facility] Non-Invasive Cardiology - [facility] [address] [place] [address] Ashley Chavez, WILLIAM [address] [place] [address] Social History Tobacco Use Types Packs/Day Years [...] ? PURNIMA THACKER ? Accession #: ? [id number] ? : ? 1955 (Age: 54) ??F [...] Ashley THOMAS PATHOLOGY ORDERABLES [facility] [address] [place] [address] documented in this encounter Visit Diagnoses Not on filedocumented in this encounter
--- OUTSIDE RECORDS SUMMARY | 2024-05-23 14:04 | XMS_ITS | Encounter Summary ---
Author Organization [facility] Address [address] [place] [address] Care Team Providers Care Manager Sharepoint Name Role Phone Ashley Chavez Primary Care Provider [phone] Encounter Details Date Type Department Care Team (Latest Contact Info) Description 05/12/2019 13:18 EDT - 05/12/2019 23:59 EDT Hospital Encounter [address] [address] Unknown, Provider, Discharge Disposition: Home or Self Care Social History Tobacco Use Types Packs/Day Years Used Date Smoking Tobacco: Never Assessed Sex and Gender Information Value Date Recorded Sex Assigned at Not on file Gender Identity Not on file Sexual Orientation Not on file documented as of this encounter Discharge Disposition Disposition Code Departure Means Destination Home or Self Prison documented in this encounter Plan of Treatment Not on file documented as of this encounter Visit Diagnoses Not on filedocumented in this encounter Care Teams Manager Sharepoint Relationship Specialty Start Date End Date Ashley Chavez ARNP [address] [place] [address] PCP - General 07/11/10 documented as of this encounter
--- OUTSIDE RECORDS SUMMARY | 2024-05-23 14:04 | XMS_ITS | Encounter Summary ---
Author Organization [facility] Address [address] [place] [address] Care Team Providers Care Fruit Harvest Worker Name Role Phone Unavailable Primary Care Provider Unavailabl e Encounter Details Date Type Department Care Team (Late st Contact Info) Description 06/29/2007 Results Only [facility] - Maple conversion [address] [place] [address] Sánchez Acevedo MD [address] [place] [address] Social History Tobacco Use Types Packs/Day Years [...] ? PURNIMA THACKER ? Accession #: ? [id number] ? : ? 1955 (Age: 51) ??F [...] covered by a smooth white serosa. ??Three rental representative sections of the gallbladder are submitted in one cassette. ??(Sriram Elias/[facility] End of Report [facility] 06/29/2007 06/29/2007 21: 23 EST Sánchez Acevedo MD PATHOLOGY ORDERABLE [facility] [address] [place] [address] documented in this encounter Visit Diagnoses Not on filedocumented in this encounter
--- OUTSIDE RECORDS SUMMARY | 2024-05-23 14:04 | XMS_ITS | Encounter Summary ---
Author Organization [facility] Address [address] [place] [address] Care Team Providers Care Fabric Normalizer Name Role Phone Unavailable Primary Care Provider Unavailabl e Encounter Details Date Type Department Care Team (Late st Contact Info) Description 07/08/2010 10:55 EST - 07/08/2010 10:56 EST Hospital Encounter [facility] - Other [address] [place] [address] Ashley Chavez, WILLIAM [address] [place] [address] Discharge Disposition: Home or Self Care Social [...]
--- OUTSIDE RECORDS SUMMARY | 2024-05-23 14:04 | XMS_ITS | Encounter Summary ---
Author Organization [facility] Address [address] [place] [address] Care Team Providers Care Gas Systems Worker Name Role Phone Ashley Chavez Primary Care Provider [phone] Encounter Details Date Type Department Care Team (Late st Contact Info) Description 03/22/2024 Lab Requisition [facility] Pathology & Laboratory Medicine - [address] [address] Consuelo Guerrero, DO [address] [place], [place] [address] Diaphragmatic hernia without obstruction or gangrene; Anemia, [...] explore management options, if applicable. 03/24/2024 10:36 [facility] Final Diagnosis A. JEJUNUM, [...] Luis Felipe Bragg DO 03/24/2024 10:36 [facility] Performing Lab [facility] 10:36 T [facility] Scanned Images 03/24/2024 10:36 T [facility] Tissue POLYP OF COLON [...] EDT Consuelo Guerrero DO PATHOLOGY ORDERABLES [facility] [address] [place] [address] documented in this encounter Visit Diagnoses Diagnosis Diaphragmatic hernia without obstruction or gangrene Diaphragmatic hernia without mention of obstruction or gangrene Anemia, unspecified documented in this encounter Care Teams Gas Systems Worker Relationship Specialty Start Date End Date Ashley Chavez ARNP [address] [place] [address] PCP - General 07/11/10 documented as of this encounter
--- OUTSIDE RECORDS SUMMARY | 2024-05-23 14:04 | XMS_ITS | Encounter Summary ---
Author Organization [facility] Address [address] [place] [address] Care Team Providers Care Transit Mix Operator Name Role Phone Scott Ashley WILLIAM Primary Care Provider [phone] Encounter Details Date Type Department Care Team (Late st Contact Info) Description 11/10/[address] [facility] [phone] Jeni Laird, STATION INSPECTOR [address] [place], [place] [phone] Social History Tobacco Use Types Packs/Day Years [...] ? PURNIMA THACKER ? Accession #: ? [id number] : ? 1955 (Age: 58) ??F ?Collect Date: ? 11/10/2013 Location: ? [facility] ? Receive Date: ? 11/14/2013 Provider: ?JENI LAIRD STATION INSPECTOR Copy to: ? Specimen/Source: ?Pap Test, Endocervix, [...] Report [facility] 11/10/2013 11/14/2013 Jeni Laird STATION INSPECTOR PATHOLOGY ORDERAB LES Performing Organization Address City/State/[facility] Co de Phone Number PAUL ARELLANO [address] [place] [address] documented in this encounter Visit Diagnoses Not on filedocumented in this encounter Care Teams Transit Mix Operator Relationship Specialty Start Date End Date Ashley Chavez ARNP [address] [place] [address] PCP - General 07/11/10 documented as of this encounter
--- OUTSIDE RECORDS SUMMARY | 2024-05-23 14:04 | XMS_ITS | Encounter Summary ---
Author Organization [facility] Address [address] [place] [address] Care Team Providers Care Telecommunications Support Name Role Phone Ashley Chavez Primary Care Provider [phone] Encounter Details Date Type Department Care Team (Late st Contact Info) Description 04/29/2022 Lab Requisition [facility] Pathology & Laboratory Medicine - [address] [address] Outr Resulting Lab, Provider Social History Tobacco [...] <20.0 Units 04/30/2022 12:23 EDT [facility] Comment: ? Negative: <20.0 Units [...] ND SEROLOGY ORDERABLES Performing Organization Address [facility] de Phone Number [facility] [address] [place] [address] * SSA ANTIBODIES BY DOMO (04/29/2022 7:51 EDT) SSA Antibody 1.5 <20.0 Units 04/30/2022 12:22 EDT [facility] Comment: ? Negative: <20.0 Units [...] ORDERABLES Performing Organization Address [facility] de Phone Number [facility] [address] [place] [address] documented in this encounter Visit Diagnoses Not on filedocumented in this encounter Care Teams Telecommunications Support Relationship Specialty Start Date End Date Ashley Chavez ARNP [address] [place] [address] PCP - General 07/11/10 documented as of this encounter
--- OUTSIDE RECORDS SUMMARY | 2024-05-23 14:04 | XMS_ITS | Encounter Summary ---
Author Organization [facility] Address [address] [place] [address] Care Team Providers Care Family Support Specialist Name Role Phone Unavailable Primary Care Provider Unavailabl e Encounter Details Date Type Department Care Team (Late st Contact Info) Description 03/24/2007 Results Only [facility] Non-Invasive Cardiology - [facility] [address] [place], [place] [address] Ashley Chavez ARNP [address] [place] [address] Social History Tobacco Use Types Packs/Day Years [...] ? PURNIMA THACKER ? Accession #: ? [id number] : ? 1955 (Age: 51) ??F ?Collect Date: ? 03/24/2007 Location: ? [facility] ? Receive Date: ? 03/28/2007 Provider: ?ASHLEY THOMAS Copy to: ? Specimen/Source: ?ThinPrep Pap Test, Endocervix, processed on [employer] ThinPrep Imaging System, with manual evaluation Last [...] of Report [facility]UL ARELLANO 03/24/2007 03/28/2007 Ashley THOAMS PATHOLOGY ORDERABLES [facility] [address] [place] [address] documented in this encounter Visit Diagnoses Not on filedocumented in this encounter
--- OUTSIDE RECORDS SUMMARY | 2024-05-23 14:04 | XMS_ITS | Encounter Summary ---
Author Organization [facility] Address [address] [place] [address] Care Team Providers Care Post Closing Specialist Name Role Phone Unavailable Primary Care Provider Unavailabl e Encounter Details Date Type Department Care Team (Late st Contact Info) Description 03/24/2007 11:06 EDT - 03/24/2007 11:59 EDT Hospital Encounter [facility] - Other [address] [place] [address] Ashley Chavez ARNP [address] [place] [address] Discharge Disposition: Home or Self Care Social [...]
--- OUTSIDE RECORDS SUMMARY | 2024-05-23 14:04 | XMS_ITS | Encounter Summary ---
Author Organization [facility] [place] [address] Care Team Providers Care Logistics Administrator Name Role Phone Magdalena Acosta MD Primary Care Provider [phone] Encounter Details Date Type Department Care Team (Late st Contact Info) Description 05/18/2024 Interpretation Only [address] [phone] Magdalena Acosta MD [address] [place], [place] [phone] Social History Tobacco Use Types Packs/Day Years [...] PM EST Hospital Encounter [place] [place] [phone] Markel Borjas MD [facility] DR HEMATOLOGY [place] [address] 06/05/2024 2:00 PM EST - 06/05/2024 3:00 PM EST Surgery [facility] [place] [phone] Markel Borjas MD [facility] DR HEMATOLOGY [place] [address] (OSC MSURG) BONE MARROW BIOPSY AND ASPIRATION; DIAGNOSTIC (WRVU 1.44) 06/23/2024 2:00 PM EST Office Visit [place] [phone] Markel Borjas MD [facility] [place]AT[place] [address] 03/01/2025 4:15 PM EDT Office Visit Dermatology at [place] [address] [place] [address] Marek Bonilla MD [address] [place] [address] Scheduled Procedures Name Priority Associated [...] AM EDT) PT CLASS O RAD ADMITDTTM [id number] RAD PT RAD INFO [id number]^Dave ^Magdalena RAD EXAM DESC XDXAC^BD Bone Density DEXA Axial Skeleton^RIS [facility] WORKSTATION ID RADDRIMAGE [facility] Anatomical Region Laterality Modality C-spine, Hip N/A [...] who have questions please contact the health disabilities caregiver that requested your imaging first. ? [...] patients who have questions please contactthe health disabilities caregiver that requested your imaging first. Magdalena Acosta MD IMG DEXA ORDERABLES documented in this encounter Visit Diagnoses Not on filedocumented in this encounter Care Teams Logistics Administrator Relationship Specialty Start Date End Date Magdalena Acosta MD [address] [place] [address] PCP - General Family Medicine 02/05/23 documented as of this encounter
--- OUTSIDE RECORDS SUMMARY | 2024-05-23 14:04 | XMS_ITS | Encounter Summary ---
Author Organization [facility] Address [address] [place] [address] Care Team Providers Care Java Groovy Developer Name Role Phone Ashley Chavez Primary Care Provider [phone] Encounter Details Date Type Department Care Team (Late st Contact Info) Description 12/17/2021 Lab Requisition [facility] Pathology & Laboratory Medicine - [address] [id number] Outr Resulting Lab, Provider Social History Tobacco [...] Lyme Ab Negative Negative 12/18/2021 10:37 EDT [facility] Blood VENOUS BLOOD / Unknown 12/17/2021 13:30 EDT 12/17/2021 21:32 EDT Provider Outr Resulting Lab IMMUNOLOGY A ND SEROLOGY ORDERABLES Performing Organization Address [facility] Co de Phone Number [facility] [address] [place] [address] * (ABNORMAL) ANTI NUCLEAR AB (FRANCISCO), IFA (12/17/2021 13:30 EDT) FRANCISCO Interpretation Positive(A) Negative 12/18/2021 16:06 EDT [facility] Comment: For titers greater [...] Pattern 1 1:1280 Speckled 12/18/2021 16:06 EDT [facility] Blood VENOUS BLOOD / Unknown 12/17/2021 13:30 EDT 12/17/2021 21:32 EDT Narrative [facility] - 12/18/2021 16:06 EDT Results were obtained with the INOVA NOVA Lite HEp-2 FRANCISCO Kit by indirect immunofluorescence. Provider Outr Resulting Lab IMMUNOLOGY A ND SEROLOGY ORDERABLES Performing Organization Address [facility] Co de Phone Number [facility] [address] [place] [address] documented in this encounter Visit Diagnoses Not on filedocumented in this encounter Care Teams Java Groovy Developer Relationship Specialty Start Date End Date Ashley Chavez ARNP [address] [place] [address] PCP - General 07/11/10 documented as of this encounter
--- OUTSIDE RECORDS SUMMARY | 2024-05-23 14:04 | XMS_ITS | Encounter Summary ---
Author Organization [facility] Address [address] [place] [address] Care Team Providers Care Water Gas Operator Name Role Phone Ashley Chavez Primary Care Provider [phone] Encounter Details Date Type Department Care Team (Late st Contact Info) Description 10/30/2022 Lab Requisition [facility] Pathology & Laboratory Medicine - [address] [address] Outr Resulting Lab, Provider Social History Tobacco [...] Stranded) <12.3 <30.0 IU/mL 11/03/2022 13:08 EDT [facility] Comment: ? Negative: ??<30.0 IU/mL ? Borderline Positive: ??30.0 - 75.0 IU/mL ? Positive: ??>75.0 IU/mL Results were obtained with the INOVA QUANTA Lite dsDNA SC DOMO assay on the [employer] DSX. Blood VENOUS BLOOD / Unknown 10/29/2022 14:00 EDT 10/30/2022 19:27 EDT Provider Outr Resulting Lab IMMUNOLOGY A ND SEROLOGY ORDERABLES Performing Organization Address [facility] de Phone Number [facility] [address] [place] [address] * SM (MORENO) ANTIBODY (10/29/2022 14:00 EDT) [facility] SM (Moreno) Antibody 18.5 <20.0 Units 11/03/2022 14:26 EDT [facility] Comment: [...] ND SEROLOGY ORDERABLES Performing Organization Address [facility] de Phone Number [facility] [address] [place] [address] documented in this encounter Visit Diagnoses Not on filedocumented in this encounter Care Teams Water Gas Operator Relationship Specialty Start Date End Date Ashley Chavez ARNP [address] [place] [address] PCP - General 07/11/10 documented as of this encounter
--- OUTSIDE RECORDS SUMMARY | 2024-05-23 14:04 | XMS_ITS | Encounter Summary ---
Author Organization [facility] Address [address] [place] [address] Care Team Providers Care Manager Field Name Role Phone Scott, Ashley WILLIAM Primary Care Provider [phone] Encounter Details Date Type Department Care Team (Late st Contact Info) Description 12/23/2016 Results Only [facility] [phone] Deborah Quiroga, SPOILAGE WORKER [address] [place] [address] [phone] Social History Tobacco Use Types Packs/Day Years [...] ? PURNIMA THACKER ? Accession #: ? [id number] ? : ? 1955 (Age: 61) ??F ?Collect Date: ? 12/23/2016 ? Location: ? [facility] ? Receive Date: ? 12/25/2016 ? Provider: DEBORAH QUIROGA SENIOR SOFTWARE ANALYST Copy to: ? Final Report SPECIMEN ADEQUACY ? Satisfactory for Evaluation - transformation zone component present GENERAL CATEGORIZATION ? Negative for Intraepithelial Lesion or Malignancy ?? Last Menstrual Period: years Specimen/Source: ??Pap Test, Cervix, ThinPrep Imaging System with manual evaluation Document reviewed and electronically signed by: ? Monica Cason [facility](ASCP) ? Report ??Date: 01/06/2017 09:11 HPV with Pap Test ? Date Ordered: ? 01/06/2017 ? Status: ?? Signed Out ?Date Complete: ? 01/07/2017 ? By: ??System Interface ? Date Reported: ? 01/07/2017 ? Interpretation RESULT: Negative for HPV. No E6 or E7 mRNA is detected from HPV types 16,18,31,33,35, 39,45,51,52,56,58, 59,66, and 68 by implementation advisor mediated amplification. Comments Document reviewed and electronically signed by: ? System Interface ? Report date: 01/07/2017 By the signature above, the attending physician certifies that he/she has personally conducted a gross and/or microscopic examination of the described specimens and rendered or confirmed the above diagnosis. End of Report [facility] 12/23/2016 12/25/2016 Deborah Quiroga SPOILAGE WORKER PATHOLOGY ORDERABLES [facility] [address] [place] [address] documented in this encounter Visit Diagnoses Not on filedocumented in this encounter Care Teams Manager Field Relationship Specialty Start Date End Date Ashley Chavez ARNP [address] [place] [address] PCP - General 07/11/10 documented as of this encounter
--- OUTSIDE RECORDS SUMMARY | 2024-05-23 14:04 | XMS_ITS | Encounter Summary ---
Author Organization [facility] [place] [address] Care Team Providers Care Director Software Name Role Phone Magdalena Acosta MD Primary Care Provider [phone] Reason for Visit * Reason Comments Follow-up * Consultation (Routine) - Closed Specialty Diagnoses / Procedures Referred By Contac t Referred To Contact Hematology and Oncology Diagnoses Anemia, unspecified type Consuelo Guerrero, DO [address] [place] [address] [place] [address] [facility] [address] [place] [address] Referral ID Status Reason Start Date Expiration Date V isits Requested Visits Authorized [id number] Closed Consult, Test & Treat 04/11/2024 04/11/2025 1 1 Encounter Details Date Type Department Care Team (Late st Contact Info) Description 05/12/2024 10:00 AM EDT Office Visit [place] [address] Markel Borjas MD [facility] [address] [place] [address] Chronic idiopathic neutropenia Social History [...] 05/12/2024 10:00 AM EDT Hematology Outpatient Clinic [facility] Hematology Outpatient Consult Note CC: 60 year [...] TOUCH PREP, CLOT SECTION, CORE BIOPSY); [OSR# [id number], COLLECTED 06/23/2016, 19 SLIDES]: 1. 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 pantoprazole EC (Protonix) 40 [...] intact. Extremities: No edema. Labs: Hgb= 11.7 Ulzu=891 ANC= 2.5 Assessment: 60 year-old woman found [...] PM EST Hospital Encounter [facility] [place] [address] Markel Borjas MD [facility] [place] [address] 06/05/2024 2:00 PM EST - 06/05/2024 3:00 PM EST Surgery [facility] [place] [address] Markel Borjas MD [facility] [address] [place] [address] (OSC MSURG) BONE MARROW BIOPSY AND ASPIRATION; DIAGNOSTIC (WRVU 1.44) 06/23/2024 2:00 PM EST Office Visit [place]ology [place] [phone] Markel Borjas MD [facility] [address] [place] [address] 03/01/2025 4:15 PM EDT Office Visit Dermatology at [place] [address] [facility] [place] [phone] Marek Bonilla MD [address], [place] [address] Scheduled Orders Name Type Priority Associated Diagnoses [...] PM EST documented as of this encounter Results * Reticulocyte Count (05/12/2024 8:56 AM EDT) Reticulocyte % 1.20 0.70 - 2.50 % 05/12/2024 9:32 AM EDT [facility] Retic Abs # 0.0397 0.0200 - 0.1100 x10(6)/mcL 05/12/2024 9:32 AM EDT [facility] Immature Retic% 8.1 0.5 - 13.8 % 05/12/2024 9:32 AM EDT [facility] Reticulated Hgb 35.2 29.8 - 39.4 pg 05/12/2024 9:32 AM EDT [facility] Blood VENOUS BLOOD SPECIMEN / Unknown Venipuncture / Unknown 05/12/2024 8:56 AM EDT 05/12/2024 8:56 AM EDT Tova Russell JOURNEYMAN PIPEFITTER HEMATOLOGY ORDERABL ES [facility] [place] [address] * (ABNORMAL) Comprehensive metabolic panel Non-fasting (05/12/2024 8:56 AM EDT) Glucose 86 65 - 199 mg/dL 05/12/2024 11:36 AM EDT [facility] Comment:Glucose Concentratio n >=200 [...] 22 - 31 mMol/L [facility] Anion Gap 15 5 - 15 mMol/L 05/12/2024 11:36 AM [facility] Comment:Not Calculated. Calcium 9.9 8.5 - 10.5 mg/dL 05/12/2024 11:36 AM EDT [facility] Protein, Total 7.3 6.1 [...] Fasting Status No 05/12/2024 11:36 AM EDT [facility] Blood VENOUS BLOOD SPECIMEN / Unknown Venipuncture / Unknown 05/12/2024 8:56 AM EDT 05/12/2024 8:56 AM EDT Tova Russell JOURNEYMAN PIPEFITTER CHEMISTRY ORDERABLE S [facility] [place] [place] [address] * (ABNORMAL) CBC (with Diff) (05/12/2024 8:56 AM EDT) White Blood Cell 3.47(L) 4.00 - 9.50 x10(3)/mc L 05/12/2024 9:32 AM [facility] Red Blood Cell 3.31(L) 4.00 - 5.21 x10(6)/mc L 05/12/2024 9:32 AM [facility] Hemoglobin 11.1(L) 11.7 - 15.5 g/dL 05/12/2024 9:32 AM [facility] Hematocrit 33.2(L) 35.7 - 45.8 % 05/12/2024 9:32 AM [facility] Mean Cell Volume 100.3(H) 82.6 - 94.4 fL 05/12/2024 9:32 AM [facility] Mean Cell Hemoglobin 33.5(H) 27.1 - 32.0 pg 05/12/2024 9:32 AM [facility] Mean Cell Hemoglobin Concentration 33.4 31.7 - 35.0 g/dL 05/12/2024 9:32 AM [facility] Platelet 142(L) 145 - 357 x10(3)/mc L 05/12/2024 9:32 AM [facility] Mean Platelet Volume 8.7 7.6 - 12.9 fL 05/12/2024 9:32 AM [facility] RDW Standard Deviation 44.4 37.0 - 46.0 fL 05/12/2024 9:32 AM [facility] RDW coefficient of variation 12.0 11.5 [...] 6.10 x10(3)/mc L 05/12/2024 9:32 AM EDT [facility] Lymph % 16.7 % 05/12/2024 9:32 AM EDT [facility] Lymph Absolute 0.58(L) 0.90 - 3.20 x10(3)/mc L 05/12/2024 9:32 AM EDT [facility] Monocyte % 12.1 % 05/12/2024 9:32 AM EDT [facility] Monocyte Absolute 0.42 0.30 - 0.90 x10(3)/mc L 05/12/2024 9:32 AM EDT [facility] Eos % 0.6 % 05/12/2024 9:32 AM EDT [facility] Eos Absolute <0.04 0.00 - 0.40 x10(3)/mc L 05/12/2024 9:32 AM EDT [facility] Basophil % 0.6 % 05/12/2024 9:32 AM EDT [facility] Baso Absolute <0.04 0.00 - 0.10 x10(3)/mc L 05/12/2024 9:32 AM EDT [facility] Immature Gran % 0.3 % 9:32 AM EDT [facility] Immature Gran Absolute <0.04 0.00 - 0.04 x10(3)/mc L 05/12/2024 9:32 AM EDT [facility] Blood VENOUS BLOOD SPECIMEN / Unknown Venipuncture / Unknown 05/12/2024 8:56 AM EDT 05/12/2024 8:56 AM EDT Tova Russell JOURNEYMAN PIPEFITTER HEMATOLOGY ORDERABL ES [facility] [place] [place] [address] documented in this encounter Visit Diagnoses Diagnosis Chronic idiopathic neutropenia Other neutropenia documented in this encounter Care Teams Director Software Relationship Specialty Start Date End Date Magdalena Acosta MD [address] [place] [address] PCP - General Family Medicine 02/05/23 documented as of this encounter
--- OUTSIDE RECORDS SUMMARY | 2024-05-23 14:04 | XMS_ITS | Continuity of Care Document ---
Author Organization [facility] Address [address] [place] [id number] Care Team Providers Care Leno Sewer Name Role Phone Magdalena Acosta Primary Care Physician Encounter [facility] [id number] Date(s): 05/18/24 - 05/18/[address] [address]- [place] Discharge Disposition: Home or Self Care Attending Physician: Magdalena Acosta Admitting Physician: Magdalena Acosta Referring Physician: Magdalena Acosta Results Radiology Reports * Exam Date Time Procedure Performing Provider Status 05/18/24 11:21 AM BD Bone Density DEXA Axial Skeleton Cynthia Cox; Janell (Verified) Notes: (BD Bone Density DEXA Axial Skeleton) Reason For Exam: Asymptomatic menopausal state BD Bone Density DEXA Axial Skeleton EXAMINATION: BD Bone Density DEXA Axial Skeleton CLINICAL HISTORY: Asymptomatic menopausal state TECHNIQUE: Scans were acquired at the lumbar spine, left hip. COMPARISON: June 05, 2021 FINDINGS: Lowest T score at a diagnostic region of interest: T score: -1.2, ALYSA:Femoral neck, WHO diagnosis: Osteopenia Total hip: 5.5% decrease IMPRESSION: Osteopenia. Significant interval decrease in bone mineral density. FRAX ten-year fracture risk: Major osteoporotic fracture: 14%. Hip fracture: 1.4%. Thank you for letting us participate in the care of this patient. If you are a health care provider and have any questions regarding this report, please contact the number below. For patients who have questions please contact the health intensive care anaesthetist that requested your imaging first. Electronically signed by: Rocael Villatoro MD, [facility] ([phone]), at :25 AM Final Dictated by: Angelito, Generated Dictated DT/TM: 05/18/2024 11:30 am Signed by: Singh Eaton Signed (Electronic Signature): 05/18/2024 11:21 am Transcribed by: LISA * Exam Date Time Procedure Performing Provider Status 05/18/24 11:21 AM MG Mammo Digital Scr eening Bilateral. MagnoliaCynthia alarcon; Auth (Verified) Notes: (MG Mammo Digital Screening Bilateral.) Reason For Exam: Screening mammogram MG Mammo Digital Screening Bilateral. EXAMINATION: MG Mammo Digital Screening Bilateral. REASON [...] DENSITY: The breasts are almost entirely fatty. IMPRESSION: BI-RADS Category 1: Negative RECOMMENDATION: Routine mammography screening * Regular screening mammograms starting at age 40 reduce the risk of from breast cancer. * Individuals should discuss the risks and benefits with their provider to determine their preferred breast cancer screening schedule, and at what age screening should stop. * Individuals should report any breast changes to a health care provider right away. * Some Individuals, because of their family history, a genetic tendency, or other factors, should consider being screened with annual breast MRI as well as with mammograms. * Screening mammography may not detect 10-15% of?breast cancers. Thank you for letting us participate in the care of this patient. If you are a health care provider and have any questions regarding this report, please contact the number below. For patients who have questions please contact the health intensive care anaesthetist that requested your imaging first. Electronically signed by: Rocael Villatoro MD, [facility] [place] ([phone]), at 43:[address] [address] Assessment - Patient level: 1: Negative Management - Patient level: Routine mammography screening Final Signed by: Singh Eaton Signed (Electronic Signature): 05/18/2024 11:21 am Social History Social History Type Response Sex Female Patient Care team information Care Team Personnel Name: Magdalena Acosta Position: No Access Member Role: Primary Care Physician Address: Address: [address] [place] [address]- Care Team Related Persons Name: MICHAEL MORALES
--- OUTSIDE RECORDS SUMMARY | 2024-05-23 14:04 | XMS_ITS | Clinical Summary ---
Author Organization [facility] Address [address] [place] [address] Care Team Providers Care Cooker Sulfite Name Role Phone Ashley Chavez Primary Care Provider [phone] Encounters Date Type Department Care Team Description 03/22/2024 Lab Requisition [facility] Pathology & Laboratory [address] [address] Consuelo Guerrero, DO Diaphragmatic hernia without obstruction or gangrene; Anemia, unspecified 03/21/2024 Lab Requisition [facility] Pathology & Laboratory [address] [address] Consuelo Guerrero, DO Encounter for other general examination 03/21/2024 Lab Requisition [facility] Pathology & Laboratory [address] [address] Outr Resulting Lab, Provider from Last 3 [...] DO BLOOD BANK TESTS Performing Organization Address [facility] Co de Phone Number [facility] [address] [place] [phone] * HAPTOGLOBIN (03/21/2024 13:00 EDT) Haptoglobin 183 32 - 197 mg/dL 03/22/2024 10:25 EDT [facility] Blood VENOUS BLOOD / Unknown 03/21/2024 13:00 EDT 03/21/2024 21:50 EDT Provider Outr Resulting Lab CHEMISTRY & BLOOD GAS ORDERABLES Performing Organization Address [facility]/ZIP Co de Phone Number [facility] [address] [place], [place] [address] * SURGICAL PATHOLOGY (03/21/2024 11:35 EDT) Note to Patient The following pathology results have been interpreted by your pathologist and may be available to you before your health provider has had the opportunity to review them. Please allow time for your provider to receive these results and explore management options, if applicable. 03/24/2024 10:36 EDT [facility] Final Diagnosis A. JEJUNUM, [...] - Deeper sections x3 examined. 03/24/2024 10:36 [facility] Attestation There was significant resident/fellow involvement in the diagnostic evaluation of this case. By the signature below, the attending physician certifies that they have personally conducted a gross and/or microscopic examination of the described specimens and rendered or confirmed the above diagnosis. 03/24/2024 10:36 [facility] at [address] Clinical History Anemia, hiatal hernia, 38 cm aguayo diverticulosis 03/24/2024 10:36 [facility] Gross Description A. Received in [...] Luis Felipe Bragg DO 03/24/2024 10:36 EDT [facility] Performing Lab [facility] 10:36 EDT [facility] Scanned Images 03/24/2024 10:36 EDT [facility] Tissue POLYP [...] 8:19 EDT Consuelo Guerrero DO PATHOLOGY ORDERABLES [facility] [address] [place] [address] from Last 3 Months Care Teams Cooker Sulfite Relationship Specialty Start Date End Date Ashley Chavez ARNP [address] [place] [address] PCP - General 07/11/10
--- OUTSIDE RECORDS SUMMARY | 2024-05-23 14:04 | XMS_ITS | Encounter Summary ---
Author Organization [facility] Address [address] [place] [address] Care Team Providers Care Sharepoint Solutions Developer Name Role Phone Ashley Chavez Primary Care Provider [phone] Encounter Details Date Type Department Care Team (Late st Contact Info) Description 01/07/2023 Lab Requisition [facility] Pathology & Laboratory Medicine - [address] [address] Outr Resulting Lab, Provider Social History Tobacco [...] & BLOOD GAS ORDERABLES Performing Organization Address City/State/[facility] Co de Phone Number [facility] [address] [place] [address] * PROTEIN, TOTAL (01/06/2023 14:40 EDT) Blood VENOUS BLOOD / Unknown 01/06/2023 14:40 EDT 01/07/2023 17:37 EDT Provider Outr Resulting Lab CHEMISTRY & BLOOD GAS ORDERABLES Performing Organization Address [facility] Co de Phone Number [facility] [address] [place] [address] * (ABNORMAL) EXTRACTABLE NUCLEAR ANTIGEN PANEL (01/06/2023 [...] >80.0 Units Results were obtained with the [employer] QUANTA Lite Sm DOMO. ??Sm values obtained with different manufacturers' assay methods may not be used interchangeably. ??The magnitude of the reported IgG levels cannot be correlated to an endpoint titer. ASSISTANT PUBLIC DEFENDER Antibody 149.1(H) <20.0 Units 01/08/2023 15:42 EDT [facility] Comment: ? Negative: <20.0 Units ? Weak Positive: 20.0 - 39.9 Units ? Moderate Positive: 40.0 - 80.0 Units ? Strong Positive: >80.0 Units Results were obtained with the [employer] Quanta Lite ASSISTANT PUBLIC DEFENDER DOMO. ASSISTANT PUBLIC DEFENDER values obtained with different blender machine operator's assay methods may not be used interchangeaby. ??The magnitude of the reported IgG levels cannot be be correlated to an endpoint titer. A positive result in the Quanta Lite ASSISTANT PUBLIC DEFENDER DOMO indicates the presence of antibodies reactive with the ASSISTANT PUBLIC DEFENDER/Sm complex but cannot distinguish between anti-Sm and anti-ASSISTANT PUBLIC DEFENDER activity. Blood VENOUS BLOOD / Unknown 01/06/2023 14:40 EDT 01/07/2023 17:37 EDT Provider Outr Resulting Lab IMMUNOLOGY A ND SEROLOGY ORDERABLES [facility] [address] [place] [address] * (ABNORMAL) ANTI NUCLEAR AB (FRANCISCO), IFA [...] A ND SEROLOGY ORDERABLES Performing Organization Address City/State/[facility] Co de Phone Number [facility] [address] [place] [address] documented in this encounter Visit Diagnoses Not on filedocumented in this encounter Care Teams Sharepoint Solutions Developer Relationship Specialty Start Date End Date Ashley Chavez ARNP [address] [place] [address] PCP - General 07/11/10 documented as of this encounter
--- OUTSIDE RECORDS SUMMARY | 2024-05-23 14:04 | XMS_ITS | Clinical Summary ---
Author Organization [facility] Address [facility] [place] [address] Care Team Providers Care Furnace Filler Name Role Phone Magdalena Acosta MD Primary Care Provider [phone] Allergies No known active allergies Medications Medication [...] Department Care Team Description 05/18/2024 Interpretation Only [address] [phone] Magdalena Acosta MD 05/18/2024 Interpretation Only [address] [address] Magdalena Acosta MD 05/12/2024 10:00 AM EDT Office Visit Hematology [place] [address] Markel Borjas MD Chronic idiopathic neutropenia 05/12/2024 9:00 AM EDT Laboratory Appointment Lab at [facility] Hematology Oncology [address] [place] [address] S/P TAVR (transcatheter aortic valve replacement); Chronic idiopathic neutropenia 05/12/2024 Travel 05/10/2024 Travel 04/11/2024 Transcribe Orders eDH Incoming Referrals [phone] Consuelo Guerrero, DO Anemia, unspecified type 03/01/2024 Telephone Cardiology at [address] [address] Cynthia Monsalve RN Pre Procedure Call (DAPT hold for EGD and colo?) 02/22/2024 4:15 PM EDT Office Visit Dermatology at [address] [phone] Marek Bonilla MD Seborrheic keratosis; Rosacea; Nevus [...] PM EST Hospital Encounter Outpatient [place] [address] Markel Borjas MD [facility] [address] [place] [address] 06/05/2024 2:00 PM EST - 06/05/2024 3:00 PM EST Surgery Outpatient [place] [address] Markel Borjas MD [facility] [address] [place] [address] (OSC MSURG) BONE MARROW BIOPSY AND ASPIRATION; DIAGNOSTIC (WRVU 1.44) 06/23/2024 2:00 PM EST Office Visit Hematology [place] [phone] Markel Borjas MD [facility] [place] [address] 03/01/2025 4:15 PM EDT Office Visit Dermatology at [address] [place] [phone] Marek Bonilla MD [address] [facility] [place] [address] Scheduled Procedures Name Priority Associated Diagnoses Date/Ti me (OSC MSURG) BONE MARROW BIOPSY AND ASPIRATION; DIAGNOSTIC (WRVU 1.44) Anemia, in pt with longstanding neutropenia 06/05/2024 2:00 PM EST Health Maintenance Due Date Last Done Comments [...] - Influenza standard series) 04/02/2024 05/22/2023, 05/18/2016 Breast Cancer screening 05/18/2026 05/18/20 24, 06/05/2021, 06/05/2021 Diabetes Screening (HgbA1C o r Glucose) 05/12/2027 05/12/2024, 07/08/2023, 05/22/2023, Additional history exists Bone Density Scan 05/18/2039 05/18/2024, 06/05/2021 Medical Devices Implanted Type Area Slate Splitter Device Identifier Shelf Expiration Date Model / Serial / Lot Valve,Aor,Pericar d,Magna,25mm ([id number]) - [id number] Implanted:Qty: 1 on 09/21/2016 by Alirio Esparza MD at [facility] IMPLANTS N/A: Heart DO NOT USE [employer] - [id number] 06/02/2020 [id number] / / [id number] Cable,Blnt,Ss,38i n ([id number]) - [id number] Implanted:Qty: 4 on 09/21/2016 by Alirio Esparza MD at [facility] IMPLANTS N/A: Chest [employer] - [id number] 04/29/2021 [id number] / / [id number] Patch,Cav,Pericar d,2x5cm ([id number]) (Autoreq) - [id number] Implanted:Qty: 1 on 09/21/2016 by Alirio Esparza MD at [facility] IMPLANTS N/A: Heart DO NOT USE [employer] - [id number] 04/21/2018 [id number] / / [id number] Tavr-05/12/2023 Implanted:Qty: 1 on 05/12/2023 by Antelmo Sharma MD Other Heart [employer] - JAIME LI [id number] / [id number] / Description:JAIME LIFES[employer] NCES ABBY 3 ULTRA RESILIA TRANSCATHETER HEART VALVE Procedures Procedure Name Priority Date/Time Associated Diagnosis Comments DXA CENTRAL SPINE, HIP, AND/OR WHOLE BODY (GENERIC) Routine 05/18/2024 11:21 AM EDT MAMMO SCREENING CAD BILATERAL (CH) Routine 05/18/2024 11:21 AM EDT RETICULOCYTE COUNT STAT 05/12/2024 8: 56 AM EDT Chronic idiopathic neutropenia COMPREHENSIVE METABOLIC PANEL STAT 05/12/2024 8:56 AM EDT Chronic idiopathic neutropenia CBC (WITH DIFF) STAT 05/12/2024 8:56 AM EDT Chronic idiopathic neutropenia LAB SCAN 02/24/2024 12:00 AM EDT from Last 3 Months Results * DXA Central Spine, Hip, and/or Whole Body (Generic) (05/18/2024 11:21 AM EDT) PT CLASS O RAD ADMITDTTM [id number] RAD PT RAD INFO [id number]^Dave ^Magdalena RAD EXAM DESC XDXAC^BD Bone Density DEXA Axial Skeleton^[facility] WORKST[facility] ID RADDRIMAGE RAD Anatomical Region [...] please contact the health long term care phlebotomist that requested your imaging first. ? Electronically signed by: Rocael Villatoro MD, [facility] ([phone]), at 05/18/2024 11:25 AM Narrative 05/18/2024 11:25 [...] questions please contactthe health long term care phlebotomist that requested your imaging first. Electronically signed by: Rocael Villatoro MD, [facility]([phone]), at 05/18/2024 11:25 AM Magdalena Acosta MD IMG DEXA ORDERABLES * MAMMO SCREENING CAD BILATERAL (CH) (05/18/2024 11:21 AM EDT) PT CLASS O RAD ADMITDTTM [id number] RAD PT RAD INFO [id number]^Dave ^Magdalena RAD EXAM DESC MADDSCCH^MG Mammo Digital [...] please contact the health long term care phlebotomist that requested your imaging first. ? Electronically signed by: Rocael Villatoro MD, [facility] ([phone]), at 05/18/2024 3:[address] [place], [place] ??[address] Narrative 05/18/2024 3:05 PM EDT EXAMINATION: MG [...] questions please contactthe health long term care phlebotomist that requested your imaging first. [place] [phone] Magdalena Acosta MD PACS IMAGES * Reticulocyte Count (05/12/2024 8:56 AM EDT) Pathologist [facility] Reticulocyte % 1.20 0.70 - 2.50 % [...] EDT 05/12/2024 8:56 AM EDT Tova Russell WET ROOM WORKER HEMATOLOGY ORDERABL ES [facility] [place] [address] * (ABNORMAL) CBC (with Diff) (05/12/2024 8:56 AM EDT) White Blood Cell 3.47(L) 4.00 - 9.50 x10(3)/mc L 05/12/2024 9:32 AM EDT [facility] Red Blood Cell 3.31(L) 4.00 - 5.21 x10(6)/mc L 05/12/2024 9:32 AM EDT [facility] Hemoglobin 11.1(L) 11.7 - 15.5 g/dL 05/12/2024 9:32 AM [facility] Hematocrit 33.2(L) 35.7 - 45.8 % 05/12/2024 9:32 AM [facility] Mean Cell Volume 100.3(H) 82.6 - 94.4 fL 05/12/2024 9:32 AM [facility] Mean Cell Hemoglobin 33.5(H) 27.1 - 32.0 pg 05/12/2024 9:32 AM [facility] Mean Cell Hemoglobin Concentration 33.4 31.7 - 35.0 g/dL 05/12/2024 9:32 AM [facility] Platelet 142(L) 145 - 357 x10(3)/mc L 05/12/2024 9:32 AM [facility] Mean Platelet Volume 8.7 7.6 - 12.9 fL 05/12/2024 9:32 AM [facility] RDW Standard Deviation 44.4 37.0 - 46.0 fL 05/12/2024 9:32 AM [facility] RDW coefficient of variation 12.0 11.5 - 14.1 % 05/12/2024 9:32 AM [facility] NRBC% auto 0.0 % 05/12/2024 9:32 AM [facility] NRBC Absolute <0.01 <0.01 x10(3)/mc L 05/12/2024 9:32 AM [facility] Neutrophil % 69.7 % 05/12/2024 9:32 AM [facility] Neutrophil Absolute (ANC) - Automated 2.42 1.70 - 6.10 x10(3)/mc L 05/12/2024 9:32 AM [facility] Lymph % 16.7 % 05/12/2024 9:32 AM [facility] Lymph Absolute 0.58(L) 0.90 - 3.20 x10(3)/mc L 05/12/2024 9:32 AM EDT [facility] Monocyte % 12.1 % 05/12/2024 9:32 AM EDT [facility] Monocyte Absolute 0.42 0.30 - 0.90 x10(3)/mc L 05/12/2024 9:32 AM EDT [facility] Eos % 0.6 % 05/12/2024 9:32 AM EDT [facility] Eos Absolute <0.04 0.00 - 0.40 x10(3)/mc L 05/12/2024 9:32 AM EDT [facility] Basophil % 0.6 % 05/12/2024 9:32 AM EDT [facility] Baso Absolute <0.04 0.00 - 0.10 x10(3)/mc L 05/12/2024 9:32 AM EDT [facility] Immature Gran % 0.3 % 9:32 AM EDT [facility] Immature Gran Absolute <0.04 0.00 - 0.04 x10(3)/mc L 05/12/2024 9:32 AM EDT [facility] Blood VENOUS BLOOD SPECIMEN / Unknown Venipuncture / Unknown 05/12/2024 8:56 AM EDT 05/12/2024 8:56 AM EDT Tova Russell WET ROOM WORKER HEMATOLOGY ORDERABL ES [facility] [place] [address] * (ABNORMAL) Comprehensive metabolic panel Non-fasting (05/12/2024 8:56 AM EDT) Glucose 86 65 - 199 mg/dL 05/12/2024 11:36 AM EDT [facility] Comment:Glucose Concentratio n >=200 mg/dL plus symptoms is consistent with Diabetes Mellitus. Blood Urea Nitrogen 20(H) 8 - 18 mg/dL 05/12/2024 11:36 AM [facility] Creatinine 0.88 0.70 - 1.20 mg/dL 05/12/2024 11:36 AM [facility] Sodium 145 135 - 145 mMol/L 05/12/2024 11:36 AM [facility] Potassium 4.6 3.5 - 5.0 mMol/L 05/12/2024 11:36 AM [facility] Chloride 109(H) 98 - 107 mMol/L 05/12/2024 11:36 AM [facility] Carbon Dioxide 21(L) 22 - 31 mMol/L 05/12/2024 11:36 AM [facility] Anion Gap 15 5 - 15 mMol/L 05/12/2024 11:36 AM [facility] Comment:Not Calculated. Calcium 9.9 8.5 - 10.5 mg/dL 05/12/2024 11:36 AM [facility] Protein, Total 7.3 6.1 - 8.0 g/dL 05/12/2024 11:36 AM [facility] Albumin 4.5 3.2 - 5.2 g/dL 05/12/2024 11:36 AM [facility] Aspartate Aminotransferase 24 <=30 unit/L 05/12/2024 11:36 AM [facility] Alanine Aminotransferase 14 0 - 30 unit/L 05/12/2024 11:36 AM [facility] Alkaline Phosphatase 98 35 - 105 unit/L 05/12/2024 11:36 AM [facility] Bilirubin, Total 0.2 <=1.3 mg/dL 05/12/2024 11:36 AM [facility] Est Glomerular Filtration Rate - Female 72 mL/min/1. 73 m?? 05/12/2024 11:36 AM [facility] Comment: This patient's estimated GFR [...] Fasting Status No 05/12/2024 11:36 AM EDT [facility] Blood VENOUS BLOOD SPECIMEN / Unknown Venipuncture / Unknown 05/12/2024 8:56 AM EDT 05/12/2024 8:56 AM EDT Tova Russell WET ROOM WORKER CHEMISTRY ORDERABLE S [facility] [place] [address] * Scan Doc: Lab (02/24/2024 12:00 AM EDT) Narrative 02/24/2024 12:00 AM EDT Ordered by an unspecified provider. Scanning Provider MEDIA MGR SCAN EXT O RDR/RSLT from Last 3 Months Advance Directives * Attempt Cardiopulmonary Resuscitation - [...] capacity to make decision: Yes Care Teams Furnace Filler Relationship Specialty Start Date End Date Magdalena Acosta MD [address] [place] [address] PCP - General Family Medicine 02/05/23
--- OUTSIDE RECORDS SUMMARY | 2024-05-23 14:04 | XMS_ITS | Referral Summary ---
Author Organization [facility] Address [address] [place] [address] Care Team Providers Care Poultry And Fish Butcher Name Role Phone Ashley Chavez Primary Care Provider [phone] Encounters Date Type Department Care Team Description 03/22/2024 Lab Requisition [facility] Pathology & Laboratory [address] [address] Consuelo Guerrero, DO Diaphragmatic hernia without obstruction or gangrene; Anemia, unspecified 03/21/2024 Lab Requisition [facility] Pathology & Laboratory [address] [address] Consuelo Guerrero DO Encounter for other general examination 03/21/2024 Lab Requisition [facility] Pathology & Laboratory [address] [address] Outr Resulting Lab, Provider from Last 3 [...] LORY Negative 03/21/2024 22:31 EDT [facility] Blood VENOUS BLOOD / Unknown 03/21/2024 13:00 EDT 03/21/2024 21:51 EDT Consuelo Guerrero DO BLOOD BANK TESTS Performing Organization Address [facility] Co de Phone Number [facility] [address] [place] [address] * HAPTOGLOBIN (03/21/2024 13:00 EDT) Haptoglobin 183 32 - 197 mg/dL 03/22/2024 10:25 EDT [facility] Blood VENOUS BLOOD / Unknown 03/21/2024 13:00 EDT 03/21/2024 21:50 EDT Provider Outr Resulting Lab CHEMISTRY & BLOOD GAS ORDERABLES Performing Organization Address [facility] Co de Phone Number [facility] [address] [place] [address] * SURGICAL PATHOLOGY (03/21/2024 11:35 EDT) Note to Patient The following pathology results have been interpreted by your pathologist and may be available to you before your health provider has had the opportunity to review them. Please allow time for your provider to receive these results and explore management options, if applicable. 03/24/2024 10:36 EDT [facility] Final Diagnosis A. JEJUNUM, [...] - Deeper sections x3 examined. 03/24/2024 10:36 [facility] Attestation There was significant resident/fellow involvement in the diagnostic evaluation of this case. By the signature below, the attending physician certifies that they have personally conducted a gross and/or microscopic examination of the described specimens and rendered or confirmed the above diagnosis. 03/24/2024 10:36 [facility] at 1036 Clinical History Anemia, hiatal hernia, 38 cm aguayo diverticulosis 03/24/2024 10:36 [facility] Gross Description [...] Luis Felipe Bragg DO 03/24/2024 10:36 EDT [facility] Performing Lab [facility] 10:36 EDT [facility] Scanned Images 03/24/2024 10:36 EDT [facility] Tissue [...] ORDERABLES [facility] [address] [place] [address] from Last 3 Months Care Teams Poultry And Fish Butcher Relationship Specialty Start Date End Date Ashley Chavez ARNP [address] [place] [address] PCP - General 07/11/10
--- OUTSIDE RECORDS SUMMARY | 2024-05-23 14:04 | XMS_ITS | Encounter Summary ---
Author Organization [facility] [place] [address] Care Team Providers Care Field Property Loss Specialist Name Role Phone Magdalena Acosta MD Primary Care Provider [phone] Encounter Details Date Type Department Care Team [...] PM EST Hospital Encounter [place] [address] Markel Borjas MD [facility] DR HEMATOLOGY [place] [address] 06/05/2024 2:00 PM EST - 06/05/2024 3:00 PM EST Surgery [place] [address] Markel Borjas MD [facility] DR HEMATOLOGY [place] [address] (OSC MSURG) BONE MARROW BIOPSY AND ASPIRATION; DIAGNOSTIC (WRVU 1.44) 06/23/2024 2:00 PM EST Office Visit Hematology [place] [address] Markel Borjas MD [facility] DR HEMATOLOGY [place] [address] 03/01/2025 4:15 PM EDT Office Visit Dermatology at [place] [address] [facility] [place] [phone] Marek Bonilla MD [address] [place] [address] Scheduled Procedures Name Priority Associated Diagnoses Date/Ti me (OSC MSURG) BONE MARROW BIOPSY AND ASPIRATION; DIAGNOSTIC (WRVU 1.44) Anemia, in pt with longstanding neutropenia 06/05/2024 2:00 PM EST documented as of this encounter Visit Diagnoses Not on filedocumented in this encounter Care Teams Field Property Loss Specialist Relationship Specialty Start Date End Date Magdalena Acosta MD [address] [place] [address] PCP - General Family Medicine 02/05/23 documented as of this encounter
--- OUTSIDE RECORDS SUMMARY | 2024-05-23 14:04 | XMS_ITS | Encounter Summary ---
Author Organization [facility] Address [address] [place] [address] Care Team Providers Care Textile Designer Name Role Phone Ashley Chavez Primary Care Provider [phone] Encounter Details Date Type Department Care Team (Late st Contact Info) Description 06/23/2016 Results Only [facility] [phone] Matthew Acevedo, DO [address] [facility] [place] [place] [address] [place] [address] Social History Tobacco Use Types Packs/Day [...] ? PURNIMA THACKER ? Accession #: ? [id number] : ? 1955 (Age: 60) ??F ?Collect [...] ??400 ?? KARYOTYPE: 46,XX[25] End of Report [facility] 06/23/2016 06/24/2016 Matthew Acevedo DO PATHOLOGY ORDER JODIE [facility] [address] [place] [address] * FLOW CYTOMETRY (06/23/2016 0:00 EST) Pathology Report: FLOW CYTOMETRY REPORT Reports generated via electronic interface contain original data; however they are lacking the format of the original report. Caution should be taken when reading/interpreting unformatted reports. Name: ? PURNIMA THACKER ? Accession #: ? [id number] : ? 1955 (Age: 60) ??F ?Collect Date: ? 06/23/2016 00:00 Location: ? [facility] ? Receive Date: ? 06/24/2016 08:00 Provider: ?MATTHEW ACEVEDO DO Copy to: ?WINTER HANKINS SECURITY ASSISTANT MARIO ALBERTO RAMOS MD ? FINAL IMMUNOPHENOTYPIC INTERPRETATION: ? Bone marrow, flow cytometric analysis: -No immunophenotypic evidence of a clonal cell population. ??See comment. ? COMMENT: The results of flow cytometry show no immunophenotypic evidence of involvement by a clonal lymphoproliferative or myeloproliferative disorder. ??Correlation of these findings with morphologic and clinical data is essential. ??Please refer to pathology report number [id number] for morphologic details. ? Document reviewed and [...] the Department of Pathology and Laboratory Medicine, [place] ??It has not been cleared or [...] clinical laboratory testing. End of Report ?? [facility] 06/23/2016 06/24/2016 8:0 0 EST Matthew Acevedo DO PATHOLOGY ORDER JODIE [facility] [address] [place] [address] * BONE MARROW/HEMPATH CONSULT (06/23/2016 0:00 EST) Pathology Report: BONE MARROW REPORT Reports generated via electronic interface contain original data; however they are lacking the format of the original report. Caution should be taken when reading/interpreting unformatted reports. Name: ? PURNIMA THACKER ? Accession #: ? [id number] : ? 1955 (Age: 60) ??F ?Collect Date: ? 06/23/2016 Location: ? [facility] ? Receive Date: ? 06/24/2016 Provider: ? MATTHEW ACEVEDO DO Copy to: ?WINTER HANKINS SECURITY ASSISTANT MARIO ALBERTO RAMOS MD ? DIAGNOSIS: Peripheral [...] #1: Aggregate biopsy length: 8 mm with financial analysis manager trabeculae of lamellar bone, cellular bone [...] SEE ABOVE DISCUSSION Lambda (polyclonal, Dako) ??(B1): Cheviot (polyclonal, Dako) ??(B1): Biopsy (decalcified) #2: Aggregate biopsy length: 8 mm with financial analysis manager trabeculae of lamellar bone, cellular bone [...] (M115, Leica) ??(B2): Lambda (polyclonal, Dako) ??(B2): Cheviot (polyclonal, Dako) ??(B2): NOTE: ??One or more [...] performance characteristics have been determined by [facility]. ??The positive and negative controls worked [...] ? 1% Blasts ?1% Special Studies Cytogenetics ([id number]): Pending. Flow Cytometry ([id number]): No immunophenotypic evidence of a clonal cell population. ? End of Report [facility] 06/23/2016 06/24/2016 Matthew Acevedo DO PATHOLOGY ORDER JODIE [facility] [address] [place] [address] documented in this encounter Visit Diagnoses Not on filedocumented in this encounter Care Teams Textile Designer Relationship Specialty Start Date End Date Ashley Chavez ARNP [address] [place] [address] PCP - General 07/11/10 documented as of this encounter
--- OUTSIDE RECORDS SUMMARY | 2024-05-23 14:04 | XMS_ITS | Encounter Summary ---
Author Organization [facility] Address [address] [place] [address] Care Team Providers Care Service Center Representative Name Role Phone Scott Ashley WILLIAM Primary Care Provider [phone] Encounter Details Date Type Department Care Team (Late st Contact Info) Description 05/12/2019 Results Only [facility] [phone] Nadira Gregorio MD [address] [place] [phone] Social History Tobacco Use Types Packs/Day [...] ? PURNIMA THACKER ? Accession #: ? [id number] ? : ? 1955 (Age: 63) ??F ? Collect Date: ? 05/12/2019 ? Location: ? [facility] ? Receive Date: ? 05/12/2019 ? Provider: NADIRA GREGORIO MD Copy to: WINTER HANKINS CHRISTMAS TREE GRADER ? Final Pathologic Diagnosis: COLON, CECUM, POLYP, [...] 05/12/2019 6:08 PM End of Report [facility] 05/12/2019 16:0 3 EDT 05/12/2019 16:03 EDT Nadira Gregorio MD PATHOLOGY ORDERABLES [facility] [address] [place] [address] documented in this encounter Visit Diagnoses Not on filedocumented in this encounter Care Teams Service Center Representative Relationship Specialty Start Date End Date Ashley Chavez ARNP [address] [place] [address] PCP - General 07/11/10 documented as of this encounter
--- OUTSIDE RECORDS SUMMARY | 2024-05-23 14:04 | XMS_ITS | Encounter Summary ---
Author Organization [facility] Address [address] [place] [address] Care Team Providers Care Tents Assembler Name Role Phone Ashley Chavez Primary Care Provider [phone] Encounter Details Date Type Department Care Team (Late st Contact Info) Description 03/21/2024 Lab Requisition [facility] Pathology & Laboratory Medicine - [address] [id number] Outr Resulting Lab, Provider Social History Tobacco [...] 32 - 197 mg/dL 03/22/2024 10:25 EDT [facility] Blood VENOUS BLOOD / Unknown 03/21/2024 13:00 EDT 03/21/2024 21:50 EDT Provider Outr Resulting Lab CHEMISTRY & BLOOD GAS ORDERABLES [facility] [address] [place] [address] documented in this encounter Visit Diagnoses Not on filedocumented in this encounter Care Teams Tents Assembler Relationship Specialty Start Date End Date Ashley Chavez ARNP [address] [place] [address] PCP - General 07/11/10 documented as of this encounter
--- OUTSIDE RECORDS SUMMARY | 2024-05-23 14:05 | XMS_ITS | Encounter Summary ---
Author Organization [facility] [place] [address] Care Team Providers Care Shellfish Harvester Name Role Phone Magdalena Acosta MD Primary Care Provider [phone] Reason for Referral * Diagnostic Test (Routine) - Closed Specialty Diagnoses / Procedures Referred By Contac t Referred To Contact Cardiology Diagnoses S/P TAVR (transcatheter aortic valve replacement) Procedures Echocardiogram Transthoracic Vinod Juárez PA [facility] [place] [address] [facility] [place] [address] Referral ID Status Reason Start Date Expiration Date V isits Requested Visits Authorized [id number] Closed Specialty Service Requested 05/22/2023 05/21/2024 1 1 Reason for Visit * Diagnostic Test (Routine) - Closed Specialty Diagnoses / Procedures Referred By Contac t Referred To Contact Cardiology Diagnoses S/P TAVR (transcatheter aortic valve replacement) Procedures Echocardiogram Transthoracic Vinod Juárez PA [facility] [place] [address] [facility] [place] [address] Referral ID Status Reason Start Date Expiration Date V isits Requested Visits Authorized [id number] Closed Specialty Service Requested 05/22/2023 05/21/2024 1 1 Encounter Details Date Type Department Care Team (Latest Contact Info) Description 07/08/2023 10:19 AM EST - 07/08/2023 11:59 PM EST Hospital Encounter Non-[place] [address] Alirio Esparza MD S/P TAVR (transcatheter aortic [...] PM EST Hospital Encounter Out[place] [address] Markel Borjas MD [facility] DR HEMATOLOGY [place] [address] 06/05/2024 2:00 PM EST - 06/05/2024 3:00 PM EST Surgery Outpatient [place] [address] Markel Borjas MD [facility] HEMATOLOGY [place] [address] ([facility] MSURG) BONE MARROW BIOPSY AND ASPIRATION; DIAGNOSTIC (WRVU 1.44) 06/23/2024 2:00 PM EST Office Visit Hematology [place] [address] Markel Borjas MD [facility] HEMATOLOGY [place] [address] 03/01/2025 4:15 PM EDT Office Visit Dermatology at [address] [address] Marek Bonilla MD [address] [facility], [place] [address] Scheduled Procedures Name Priority Associated [...] DOPP (07/08/2023 12:15 PM EST) EF 20 HEARTU [employer] - Smartphone RFID SYSTEM Anatomical Region Laterality Modality Cardiac Other 07/08/2023 10:3 1 AM EST Narrative 07/08/2023 12:26 PM EST 1 [place] [address] ? Echocardiogram Report Name: ONESIMO THACKER ?Study Date: 07/08/2023 10:31 AMBP: 118/60 mmHg ? Patient Location: 4A : 1955 ? Height: 155 cm ? Account: [id number] Age: 67 yrs ? Weight: 74 kg Gender: Female ?BSA: 1.7 m2 Ordering Physician: ALIRIO ESPARZA Referring Physician: VINOD JUÁREZ Performed By: Felicia Norris RODOLFO Reason For Study: S/P TAVR Exam Location: [facility]. Interpretation Summary Left ventricular systolic [...] no significant change (post-procedure). Procedure Limited - 01107. Doppler - 92174. Color Doppler - 57625. Satisfactory quality. This study is limited because [...] Note Lee Kincaid MD - 07/08/2023 1 [place] [address] Echocardiogram Report Name: ONESIMO THACKER Study Date: 0:31 AMBP: 118/60 mmHg Patient Location: : 1955 Height: 155 cm Account: [id number] Age: 67 yrs Weight: 74 kg Gender: Female BSA: 1.7 m2 Ordering Physician: ALIRIO ESPARZA Referring Physician: VINOD JUÁREZ Performed By: Felicia Norris RDCS Reason For Study: S/P TAVR Exam Location: [facility]. Interpretation Summary Left ventricular systolic [...] is nosignificant change (post-procedure). Procedure Limited - 11748. Doppler - 99422. Color Doppler - 47076. Satisfactoryquality. This study is limited because of [...] replacement) documented in this encounter Care Teams Shellfish Harvester Relationship Specialty Start Date End Date Magdalena Acosta MD [address] [place] [address] PCP - General Family Medicine 02/05/23 documented as of this encounter
--- OUTSIDE RECORDS SUMMARY | 2024-05-23 14:05 | XMS_ITS | Encounter Summary ---
Author Organization [facility] [place] [address] Care Team Providers Care Manager Wound Care Name Role Phone Magdalena Acosta MD Primary Care Provider [phone] Encounter Details Date Type Department Care Team [...] PM EST Hospital Encounter Outpatient [place] [address] Markel Borjas MD [facility] DR HEMATOLOGY [place] [address] 06/05/2024 2:00 PM EST - 06/05/2024 3:00 PM EST Surgery [place] [address] Markel Borjas MD [facility] DR HEMATOLOGY [place] [address] ([facility] MSURG) BONE MARROW BIOPSY AND ASPIRATION; DIAGNOSTIC (WRVU 1.44) 06/23/2024 2:00 PM EST Office Visit Hematology [place] [address] Markel Borjas MD [facility] DR HEMATOLOGY [place] [address] 03/01/2025 4:15 PM EDT Office Visit Dermatology at [place] [address] [facility] [place] [address] Marek Bonilla MD [address], [place] [address] Scheduled Procedures Name Priority Associated Diagnoses Date/Ti me ([facility] MSURG) BONE MARROW BIOPSY AND ASPIRATION; DIAGNOSTIC (WRVU 1.44) Anemia, in pt with longstanding neutropenia 06/05/2024 2:00 PM EST documented as of this encounter Visit Diagnoses Not on filedocumented in this encounter Care Teams Manager Wound Care Relationship Specialty Start Date End Date Magdalena Acosta MD [address] [place] [address] PCP - General Family Medicine 02/05/23 documented as of this encounter
--- OUTSIDE RECORDS SUMMARY | 2024-05-23 14:05 | XMS_ITS | Encounter Summary ---
[place] [address] Care Team Providers Care It Help Desk Analyst Name Role Phone Magdalena Acosta MD Primary Care Provider [phone] Encounter Details Date Type Department Care Team (Latest Contact Info) Description 10/05/2023 10:52 AM EST - 10/05/2023 11:59 PM [facility] Hospital Encounter [place] [address] Mixed connective tissue disease Discharge Disposition: Home Social History Tobacco Use Types Packs/Day Years Used Date Smoking Tobacco: Never Smokeless Tobacco: Never Alcohol Use Standard Drinks/Week Comments No 0 (1 standard drink = 0.6 oz pur e alcohol) none [facility] Inpatient Questions Answer Date Recorded Does [...] Verio test strips Strip USE DAILY 01/03/2022 140FireTouch Delica Plus Lancet 33 gauge Misc USE [...] PM EST Hospital Encounter Outpatient [place] [address] Markel Borjas MD [facility] [address] [place] [address] 06/05/2024 2:00 PM EST - 06/05/2024 3:00 PM EST Surgery Outpatient [place] [address] Markel Borjas MD [facility] DR [place] [address] ([facility] MSURG) BONE MARROW BIOPSY AND ASPIRATION; DIAGNOSTIC (WRVU 1.44) 06/23/2024 2:00 PM EST Office Visit Hematology [place] [address] Markel Borjas MD [facility] [place] [address] 03/01/2025 4:15 PM EDT Office Visit Dermatology at [address] [place] [address] Marek Bonilla MD [address] [facility], [place] A DERMATOLOGY [place], [place] [phone] Scheduled Procedures Name Priority Associated Diagnoses Date/Ti [...] PFT FEV1/FVC Pre-BD Z-Score 0 COMPAS PFT BKD26-86 Actual Pre-BD 2.41 % COMPAS PFT QIF12-27 Predicted 1.8 % COMPAS PFT UAO80-31 Pre-BD % of Predicted 134 % COMPAS PFT UZJ01-45 Pre-BD Z-Score 0.81 COMPAS PFT DLCO Hb [...] tissue documented in this encounter Care Teams It Help Desk Analyst Relationship Specialty Start Date End Date Magdalena Acosta MD [address] [place] [address] PCP - General Family Medicine 02/05/23 documented as of this encounter
--- OUTSIDE RECORDS SUMMARY | 2024-05-23 14:05 | XMS_ITS | Encounter Summary ---
Author Organization [facility] [place] [address] Care Team Providers Care Can Sealer Name Role Phone Magdalena Acosta MD Primary Care Provider [phone] Encounter Details Date Type Department Care Team [...] PM EST Hospital Encounter Outpatient [place] [address] Markel Borjas MD [facility] DR HEMATOLOGY [place] [address] 06/05/2024 2:00 PM EST - 06/05/2024 3:00 PM EST Surgery Outpatient [place] [address] Markel Borjas MD [facility] DR [place]EMATOLOGY [place] [address] ([facility] MSURG) BONE MARROW BIOPSY AND ASPIRATION; DIAGNOSTIC (WRVU 1.44) 06/23/2024 2:00 PM EST Office Visit Hematology [place] [address] Markel Borjas MD [facility] DR HEMATOLOGY [place] [address] 03/01/2025 4:15 PM EDT Office Visit Dermatology at [place] [address] [facility] [place] [address] Marek Bonilla MD [address], [place] [address] Scheduled Procedures Name Priority Associated Diagnoses Date/Ti me ([facility] MSURG) BONE MARROW BIOPSY AND ASPIRATION; DIAGNOSTIC (WRVU 1.44) Anemia, in pt with longstanding neutropenia 06/05/2024 2:00 PM EST documented as of this encounter Visit Diagnoses Not on filedocumented in this encounter Care Teams Can Sealer Relationship Specialty Start Date End Date Magdalena Acosta MD [address] [place] [address] PCP - General Family Medicine 02/05/23 documented as of this encounter
--- OUTSIDE RECORDS SUMMARY | 2024-05-23 14:05 | XMS_ITS | Encounter Summary ---
Author Organization [facility] [place] [address] Care Team Providers Care Driver Medic Name Role Phone Magdalena Acosta MD Primary Care Provider [phone] Encounter Details Date Type Department Care Team [...] PM EST Hospital Encounter [place] [address] Markel Borjas MD [facility] DR [place] [address] 06/05/2024 2:00 PM EST - 06/05/2024 3:00 PM EST Surgery [place] [address] Markel Borjas MD [facility] [address] [place] [address] ([facility] MSURG) BONE MARROW BIOPSY AND ASPIRATION; DIAGNOSTIC (WRVU 1.44) 06/23/2024 2:00 PM EST Office Visit Hematology [place] [address] Markel Borjas MD [facility] DR [place] [address] 03/01/2025 4:15 PM EDT Office Visit Dermatology at [place] [address] [facility] [place] [address] Marek Bonilla MD [address], [place] [address] Scheduled Procedures Name Priority Associated Diagnoses Date/Ti me ([facility] MSURG) BONE MARROW BIOPSY AND ASPIRATION; DIAGNOSTIC (WRVU 1.44) Anemia, in pt with longstanding neutropenia 06/05/2024 2:00 PM EST documented as of this encounter Visit Diagnoses Not on filedocumented in this encounter Care Teams Driver Medic Relationship Specialty Start Date End Date Magdalena Acosta MD [address] [place] [address] PCP - General Family Medicine 02/05/23 documented as of this encounter
--- OUTSIDE RECORDS SUMMARY | 2024-05-23 14:05 | XMS_ITS | Encounter Summary ---
Author Organization [facility] [place] [address] Care Team Providers Care Director Of Women'S Services Name Role Phone Magdalena Acosta MD Primary Care Provider [phone] Encounter Details Date Type Department Care Team [...] PM EST Hospital Encounter Outpatient [place] [address] Markel Borjas MD [facility] [address] [place] [address] 06/05/2024 2:00 PM EST - 06/05/2024 3:00 PM EST Surgery Outpatient [place] [address] Markel Borjas MD [facility] [address] [place] [address] ([facility] MSURG) BONE MARROW BIOPSY AND ASPIRATION; DIAGNOSTIC (WRVU 1.44) 06/23/2024 2:00 PM EST Office Visit Hematology [place] [address] Markel Borjas MD [facility] [address] [place] [address] 03/01/2025 4:15 PM EDT Office Visit Dermatology at [place] [address] [facility] [place] [address] Marek Bonilla MD [address], [place] [address] Scheduled Procedures Name Priority Associated Diagnoses Date/Ti me ([facility] MSURG) BONE MARROW BIOPSY AND ASPIRATION; DIAGNOSTIC (WRVU 1.44) Anemia, in pt with longstanding neutropenia 06/05/2024 2:00 PM EST documented as of this encounter Visit Diagnoses Not on filedocumented in this encounter Care Teams Director Of Women'S Services Relationship Specialty Start Date End Date Magdalena Acosta MD [address] [place] [address] PCP - General Family Medicine 02/05/23 documented as of this encounter
--- OUTSIDE RECORDS SUMMARY | 2024-05-23 14:05 | XMS_ITS | Encounter Summary ---
Author Organization [place] [address] Care Team Providers Care Medical Representative Name Role Phone Magdalena Acosta MD Primary Care Provider [phone] Encounter Details Date Type Department Care Team (Late st Contact Info) Description 05/27/2023 Refill Cardiology at [address] [phone] Vero Marrero, RN Social History Tobacco Use [...] PM EDT TC to Nurse Sosa at [facility] to relay response from Jay Maza copied below. Nurse Sosa states they will send a new prescription to patient's preferred pharmacy and call the patient with the medication information. No print prescription sent to update med list. May 27, 2023 Jay Maza PA to Ar 05/27/23 2:44 PM OK to change ticagrelor to Clopidogrel. Now, she should be taking ticagrelor 90mg BID. When she switches, she can take ticagrelor, then the next morning, stop ticagrelor, instead take clopidogrel 300mg once, then after that 75mg once daily. Jay Marrero salad chef Clinic at [facility] [address] * Telephone Encounter - Vero Marrero RN - 05/27/2023 1:46 PM EDT VM received from triage nurse Sosa at [facility] stating patient was seen [...] possible. Vero Marrero RN Cardiology Clinic at [facility] [address] documented in this encounter Plan of Treatment Upcoming Encounters Date Type Department Care Team (Late st Contact Info) Description 06/05/2024 2:00 PM EST Hospital Encounter [place] [address] Markel Borjas MD [facility] [place] [address] 06/05/2024 2:00 PM EST - 06/05/2024 3:00 PM EST Surgery [place] [address] Markel Borjas MD [facility] HEMATOLOGY AND ONCOLOGY [place] [id number] ([facility] MSURG) BONE MARROW BIOPSY AND ASPIRATION; DIAGNOSTIC (WRVU 1.44) 06/23/2024 2:00 PM EST Office Visit [place]ology [place] [address] Markel Borjas MD [facility] DR [place] [address] 03/01/2025 4:15 PM EDT Office Visit Dermatology at [place] [address] [facility] [place] [address] Marek Bonilla MD [address], [place] [address] Scheduled Procedures Name Priority Associated Diagnoses Date/Ti me ([facility] MSURG) BONE MARROW BIOPSY AND ASPIRATION; DIAGNOSTIC (WRVU 1.44) Anemia, in pt with longstanding neutropenia 06/05/2024 2:00 PM EST documented as of this encounter Visit Diagnoses Diagnosis Aortic valve stenosis, etiology of cardiac valve disease unspecified documented in this encounter Care Teams Medical Representative Relationship Specialty Start Date End Date Magdalena Acosta MD [address] [place] [address] PCP - General Family Medicine 02/05/23 documented as of this encounter
--- OUTSIDE RECORDS SUMMARY | 2024-05-23 14:05 | XMS_ITS | Encounter Summary ---
Author Organization [facility] [place] [address] Care Team Providers Care Inseam Leveler Name Role Phone Magdalena Acosta MD Primary Care Provider [phone] Encounter Details Date Type Department Care Team (Latest Contact Info) Description 07/08/2023 12:35 PM EST Laboratory Appointment Lab [address] [place] [address] S/P TAVR (transcatheter aortic valve [...] PM EST Hospital Encounter [place]patient [place] [phone] Markel Borjas MD [facility] DR [place] [address] 06/05/2024 2:00 PM EST - 06/05/2024 3:00 PM EST Surgery [place]patient [place] [address] Markel Borjas MD [facility] [address] [place] [address] ([facility] MSURG) BONE MARROW BIOPSY AND ASPIRATION; DIAGNOSTIC (WRVU 1.44) 06/23/2024 2:00 PM EST Office Visit Hematology [place] [address] Markel Borjas MD [facility] [address] [place] [address] 03/01/2025 4:15 PM EDT Office Visit Dermatology at [place] [address] [place] [address] Marek Bonilla MD [address], [place] [address] Scheduled Procedures Name Priority Associated Diagnoses Date/Ti [...] 11:56 AM EST) Neutrophil % 73.2 % [facility] Neutrophil Absolute 3.40 1.70 - 6.10 x10(3)/mc L [facility] Lymph % 16.1 % [facility] Lymphocytes Abs 0.8(L) 0.9 - 3.2 x10(3)/ L [facility] Monocyte % 9.7 % [facility] Monocyte Abs 0.4 0.3 - 0.9 x10(3)/[facility] Eos % 0.4 % [facility] Eosinophils Abs 0.0 0.0 - 0.4 x10(3)/[facility] Basophil % 0.4 % [facility] Baso Absolute 0.0 0.0 - 0.1 x10(3)/[facility] Immature Gran % 0.20 % [facility] Comment: Immature granulocytes(IG's)percentage and absolute count will include metamyelocytes, myelocytes, and promyelocytes. Blood smears from CBCs yielding IG's will be scanned manually for concordance. If this scan disagrees with the automated IG or if promyelocytes are noted, a manual differential will be performed. Immature Gran Absolute 0.01 0.00 - 0.04 x10(3)/ L [facility] Blood 07/08/2023 11:5 6 AM EST 07/08/2023 12:02 PM EST Narrative Resulting Agency Comment Spec In Lab [facility]EMATOLOG[facility] ORDERABLE S [facility] [place] [address] * (ABNORMAL) Hemogram (07/08/2023 11:56 AM EST) White Blood Cell 4.6 4.0 - 9.5 x10(3)/[facility] Red Blood Cell 3.34(L) 4.00 - 5.21 x10(6)/mc L [facility] Hemoglobin 11.0(L) 11.7 - 15.5 g/dL [facility] Hematocrit 33.2(L) 35.7 - 45.8 % [facility] Mean Cell Volume 99.4(H) 82.6 - 94.4 fL [facility] Mean Cell Hemoglobin 32.9(H) 27.1 - 32.0 pg [facility] Mean Cell Hemoglobin Concentration 33.1 31.7 - 35.0 g/dL [facility] Platelet 166 145 - 357 x10(3)/mc L [facility] RDW Standard Deviation 47.1(H) 37.0 - 46.0 fL [facility] RDW coefficient of variation 13.0 11.5 - 14.1 % [facility] Mean Platelet Volume 9.0 7.6 - 12.9 fL [facility] NRBC% auto 0.0 % [facility] NRBC Absolute 0.000 0.000 - 0.000 x10(3)/[facility] Blood 07/08/2023 11:5 6 AM EST 07/08/2023 12:02 PM EST Narrative Resulting Agency Comment Spec In Lab Minh [facility] HEMATOLOGY ORDERABLE S Performing Organization Address City/State/[facility] Co de Phone Number [facility] [place] [address] * (ABNORMAL) Comprehensive metabolic panel (non-fasting) (07/08/2023 11:56 AM EST) Glucose 93 65 - 199 mg/dL [facility] Comment:Diabetes: >=200 mg/d L plus symptoms Blood Urea Nitrogen 19(H) 8 - 18 mg/dL [facility] Creatinine 0.81 0.70 - 1.20 mg/dL [facility] Sodium 142 135 - 145 mmol/L [facility] Potassium 3.8 3.5 - 5.0 mmol/L [facility] Comment: Please note: ??Patients with WBC >100,000 may have falsely elevated Potassium levels. ??For accurate Potassium quantification in these patients send serum separator tube (gold top) for subsequent determinations. ??Contact the Clinical Chemistry Laboratory if there are any questions. Chloride 104 98 - 107 mmol/L [facility] Carbon Dioxide 26 22 - 31 mmol/L [facility] Anion Gap 12 5 - 15 mmol/L [facility] Calcium 10.2 8.5 - 10.5 mg/dL [facility] Protein, Total 7.4 6.1 - 8.0 g/dL [facility] Albumin 4.1 3.2 - 5.2 g/dL [facility] Aspartate Aminotransferase 24 0 - 30 unit/L [facility] Alanine Aminotransferase 12 0 - 30 unit/L [facility] Alkaline Phosphatase 93 35 - 105 unit/L [facility] Bilirubin, Total 0.3 0.2 - 1.3 mg/dL [facility] Est Glomerular Filtration Rate 80 >=60 mL/min/1. 73 m?? [facility] Comment: This patient's estimated GFR [...] Address City/State/[facility] Co de Phone Number [facility] [place] [address] documented in this encounter Visit Diagnoses Diagnosis S/P TAVR (transcatheter aortic valve replacement) Severe aortic stenosis Aortic valve disorders documented in this encounter Care Teams Inseam Leveler Relationship Specialty Start Date End Date Magdalena Acosta MD [address] [place] [address] PCP - General Family Medicine 02/05/23 documented as of this encounter
--- OUTSIDE RECORDS SUMMARY | 2024-05-23 14:05 | XMS_ITS | Encounter Summary ---
Author Organization [facility] Address [facility] [place] [address] Care Team Providers Care Supervisor Cloth Winding Name Role Phone Magdalena Acosta MD Primary Care Provider [phone] Encounter Details Date Type Department Care Team (Latest Contact Info) Description 05/12/2024 9:00 AM EDT Laboratory Appointment Lab at [facility] Hematology Oncology [address] [place] [address] S/P TAVR (transcatheter aortic valve replacement); Chronic idiopathic neutropenia Social History Tobacco Use Types Packs/Day Years Used Date Smoking Tobacco: Never Smokeless Tobacco: Never Alcohol Use Standard Drinks/Week Comments No 0 (1 standard drink = 0.6 oz pur e alcohol) none [facility] Inpatient Questions Answer Date Recorded Does Anyone [...] PM EST Hospital Encounter [place] [phone] Markel Borjas MD [facility] DR HEMATOLOG[place] [address] 06/05/2024 2:00 PM EST - 06/05/2024 3:00 PM EST Surgery [place] [address] Markel Borjas MD [facility] DR HEMATOLOGY [place] [address] (OSC MSURG) BONE MARROW BIOPSY AND ASPIRATION; DIAGNOSTIC (WRVU 1.44) 06/23/2024 2:00 PM EST Office Visit Hematology [place] [address] Markel Borjas MD [facility] DR HEMATOLOG[place] [address] 03/01/2025 4:15 PM EDT Office Visit Dermatology at [place] [address] [place] [address] Marek Bonilla MD [address] DERMATOLOGY [place], [place] [phone] Scheduled Procedures Name Priority Associated Diagnoses Date/Ti [...] 05/12/2024 8:56 AM EDT Tova Mejias Drew [facility]TER HEMATOLOGY ORDERABL ES [facility] [place] [address] * (ABNORMAL) Comprehensive metabolic panel Non-fasting (05/12/2024 8:56 AM EDT) Glucose 86 65 - 199 mg/dL 05/12/2024 11:36 AM [facility] Comment:Glucose Concentratio n >=200 mg/dL plus symptoms is consistent with Diabetes Mellitus. Blood Urea Nitrogen 20(H) 8 - 18 mg/dL 05/12/2024 11:36 AM [facility] Creatinine 0.88 0.70 - 1.20 mg/dL 05/12/2024 11:36 AM EDT [facility] Sodium 145 135 - 145 mMol/L 05/12/2024 11:36 AM [facility] Potassium 4.6 3.5 - 5.0 mMol/L 05/12/2024 11:[facility] Chloride 109(H) 98 - 107 mMol/L 05/12/2024 11:36 [facility] Carbon Dioxide 21(L) 22 - 31 mMol/L 05/12/2024 11:36 AM [facility] Anion Gap 15 5 - 15 mMol/L 05/12/2024 11:36 AM [facility] Comment:Not Calculated. Calcium 9.9 8.5 - 10.5 mg/dL 05/12/2024 11:36 AM [facility] Protein, Total 7.3 6.1 - 8.0 g/dL 05/12/2024 11:36 AM [facility] Albumin 4.5 3.2 - 5.2 g/dL 05/12/2024 11:36 AM [facility] Aspartate Aminotransferase 24 <=30 unit/L 05/12/2024 11:36 AM [facility] Alanine Aminotransferase 14 0 - 30 unit/L 05/12/2024 11:36 AM [facility] Alkaline Phosphatase 98 35 - 105 unit/L 05/12/2024 11:36 AM [facility] Bilirubin, Total 0.2 <=1.3 mg/dL 05/12/2024 11:36 AM [facility] Est Glomerular Filtration Rate - Female 72 mL/min/1. 73 m?? 05/12/2024 11:36 AM [facility] Comment: This patient's estimated GFR was [...] Foundation Fasting Status No 05/12/2024 11:36 AM [facility] Blood VENOUS BLOOD SPECIMEN / Unknown Venipuncture / Unknown 05/12/2024 8:56 AM EDT 05/12/2024 8:56 AM EDT Tova Russell [facility] CHEMISTRY ORDERABLE S [facility] [place] [address] * (ABNORMAL) CBC (with Diff) (05/12/2024 8:56 AM EDT) White Blood Cell 3.47(L) 4.00 - 9.50 x10(3)/mc L 05/12/2024 9:32 AM EDT [facility] Red Blood Cell 3.31(L) 4.00 - 5.21 x10(6)/mc L 05/12/2024 9:32 AM EDT [facility] Hemoglobin 11.1(L) 11.7 - 15.5 g/dL 05/12/2024 9:32 AM EDT [facility] Hematocrit 33.2(L) 35.7 - 45.8 % 05/12/2024 9:32 AM EDT [facility] Mean Cell Volume 100.3(H) 82.6 - 94.4 fL 05/12/2024 9:32 AM EDT [facility] Mean Cell Hemoglobin 33.5(H) 27.1 - 32.0 pg 05/12/2024 9:32 AM EDT [facility] Mean Cell Hemoglobin Concentration 33.4 31.7 - 35.0 g/dL 05/12/2024 9:32 AM EDT [facility] Platelet 142(L) 145 - 357 x10(3)/mc L 05/12/2024 9:32 AM EDT [facility] Mean Platelet Volume 8.7 7.6 - 12.9 fL 05/12/2024 9:32 AM EDT [facility] RDW Standard Deviation 44.4 37.0 - 46.0 fL 05/12/2024 9:32 AM EDT [facility] RDW coefficient of variation 12.0 11.5 - 14.1 % 05/12/2024 9:32 AM EDT [facility] NRBC% auto 0.0 % 05/12/2024 9:32 AM [facility] NRBC Absolute <0.01 <0.01 x10(3)/mc L 05/12/2024 9:32 AM [facility] Neutrophil % 69.7 % 05/12/2024 9:32 AM [facility] Neutrophil Absolute (ANC) - Automated 2.42 1.70 - 6.10 x10(3)/mc L 05/12/2024 9:32 AM [facility] Lymph % 16.7 % 05/12/2024 9:32 AM [facility] Lymph Absolute 0.58(L) 0.90 - 3.20 x10(3)/mc L 05/12/2024 9:32 AM [facility] Monocyte % 12.1 % 05/12/2024 9:32 AM [facility] Monocyte Absolute 0.42 0.30 - 0.90 x10(3)/mc L 05/12/2024 9:32 AM [facility] Eos % 0.6 % 05/12/2024 9:32 AM [facility] Eos Absolute <0.04 0.00 - 0.40 x10(3)/mc L 05/12/2024 9:32 AM [facility] Basophil % 0.6 % 05/12/2024 9:32 AM [facility] Baso Absolute <0.04 0.00 - 0.10 x10(3)/mc L 05/12/2024 9:32 AM [facility] Immature Gran % 0.3 % 9:32 AM [facility] Immature Gran Absolute <0.04 0.00 - 0.04 x10(3)/mc L 05/12/2024 9:32 AM [facility] Blood VENOUS BLOOD SPECIMEN / Unknown Venipuncture / Unknown 05/12/2024 8:56 AM EDT 05/12/2024 8:56 AM EDT Tova Magalie Drew [facility] HEMATOLOGY ORDERABL ES [facility] [place] [address] documented in this encounter Visit Diagnoses Diagnosis S/P TAVR (transcatheter aortic valve replacement) Chronic idiopathic neutropenia Other neutropenia documented in this encounter Care Teams Supervisor Cloth Winding Relationship Specialty Start Date End Date Magdalena Acosta MD [address] [place] [address] PCP - General Family Medicine 02/05/23 documented as of this encounter
--- OUTSIDE RECORDS SUMMARY | 2024-05-23 14:05 | XMS_ITS | Encounter Summary ---
[place] [address] Care Team Providers Care Wink Cutter Operator Name Role Phone Magdalena Acosta MD Primary Care Provider [phone] Reason for Visit * Reason Onset Date Comments Pre Procedure Call 03/01/2024 DAPT hold for EGD and colo? Encounter Details Date Type Department Care Team (Late st Contact Info) Description 03/01/2024 Telephone Cardiology at [address] [phone] Cynthia Monsalve RN Pre Procedure Call (DAPT [...] safe. Jay Message above left with Yenifer (hair clipper power), who would be leaving this note in patient's chart for providers to schedule patient. No further questions or needs at this time. This nurse stated, note will be placed regarding this call in our chart for patient. Kezia Whitney RN, BSN Ambulatory Cardiology Clinic, [facility] [phone] * Telephone Encounter - Cynthia Monsalve RN [...] PM EST Hospital Encounter [place] [phone] Markel Borjas MD [facility] DR HEMATOLOGY [place] [address] 06/05/2024 2:00 PM EST - 06/05/2024 3:00 PM EST Surgery [place]patient [place] [address] Markel Borjas MD [facility] HEMATOLOGY [place] [address] (OSC MSURG) BONE MARROW BIOPSY AND ASPIRATION; DIAGNOSTIC (WRVU 1.44) 06/23/2024 2:00 PM EST Office Visit Hematology [place] [address] Markel Borjas MD [facility] DR HEMATOLOGY [place] [address] 03/01/2025 4:15 PM EDT Office Visit Dermatology at [place] [address] [place] [address] Marek Bonilla MD [address], [place] [address] Scheduled Procedures Name Priority Associated Diagnoses Date/Ti me (OSC MSURG) BONE MARROW BIOPSY AND ASPIRATION; DIAGNOSTIC (WRVU 1.44) Anemia, in pt with longstanding neutropenia 06/05/2024 2:00 PM EST documented as of this encounter Visit Diagnoses Not on filedocumented in this encounter Care Teams Wink Cutter Operator Relationship Specialty Start Date End Date Magdalena Acosta MD [address] [place] [address] PCP - General Family Medicine 02/05/23 documented as of this encounter
--- OUTSIDE RECORDS SUMMARY | 2024-05-23 14:05 | XMS_ITS | Encounter Summary ---
Author Organization [facility] [place] [address] Care Team Providers Care Labor Operator Name Role Phone Magdalena Acosta MD Primary Care Provider [phone] Encounter Details Date Type Department Care Team (Late st Contact Info) Description 12/02/2023 11:15 AM EDT Office [place] [address] [facility] [place] [address] Mixed connective tissue disease Social History Tobacco [...] 1:5120 speckled; VIC negative; Myositis panel with WAITER/WAITRESS ROOM SERVICE ab 149.1 (positive); Anti U1RNP IgG 119; [...] questions that she sent via [facility] ahead of her visit, which we [...] exposure. She has an appointment with her Concrete Floor Installer scheduled in January. (Dr Bonilla in [place]) ROS (positives in bold): Gen: no fevers, [...] but I encouraged her to contact her Concrete Floor Installer to see if she could have her [...] Dr. Tanisha Peralta MD Rheumatology Fellow Pager: [phone] * Federico Yee MD - 12/02/2023 11:15 [...] PM EST Hospital Encounter Outpatient [place] [address] [facility] [place] [address] 06/05/2024 2:00 PM EST - 06/05/2024 3:00 PM EST Surgery Outpatient [place] [address] [facility] [place] [address] (OSC MSURG) BONE MARROW BIOPSY AND ASPIRATION; DIAGNOSTIC (WRVU 1.44) 06/23/2024 2:00 PM EST Office Visit [place] [address] [facility] [address] [place] [address] 03/01/2025 4:15 PM EDT Office Visit Dermatology at [address] [phone] Marek Bonilla MD [address] [place] [address] Scheduled Orders Name Type Priority Associated Diagnoses [...] tissue documented in this encounter Care Teams Labor Operator Relationship Specialty Start Date End Date Magdalena Acosta MD [address] [place] [address] PCP - General Family Medicine 02/05/23 documented as of this encounter
--- OUTSIDE RECORDS SUMMARY | 2024-05-23 14:05 | XMS_ITS | Encounter Summary ---
Author Organization [facility] [place] [address] Care Team Providers Care Bush And Vine Farmer Fruit Crops Name Role Phone Magdalena Acosta MD Primary Care Provider [phone] Encounter Details Date Type Department Care Team [...] PM EST Hospital Encounter [place]patient [place] [address] Markel Borjas MD [facility] DR HEMATOLOGY [place] [address] 06/05/2024 2:00 PM EST - 06/05/2024 3:00 PM EST Surgery [place] [address] Markel Borjas MD [facility] [address] HEMATOLOGY [place] [address] (OSC MSURG) BONE MARROW BIOPSY AND ASPIRATION; DIAGNOSTIC (WRVU 1.44) 06/23/2024 2:00 PM EST Office Visit [place]ematology [place] [address] Markel Borjas MD [facility] DR HEMATOLOGY [place] [address] 03/01/2025 4:15 PM EDT Office Visit Dermatology at [place] [address] [place] [phone] Marek Bonilla MD [address], [place] [address] Scheduled Procedures Name Priority Associated Diagnoses Date/Ti me (OSC MSURG) BONE MARROW BIOPSY AND ASPIRATION; DIAGNOSTIC (WRVU 1.44) Anemia, in pt with longstanding neutropenia 06/05/2024 2:00 PM EST documented as of this encounter Visit Diagnoses Not on filedocumented in this encounter Care Teams Bush And Vine Farmer Fruit Crops Relationship Specialty Start Date End Date Magdalena Acosta MD [address] [place] [address] PCP - General Family Medicine 02/05/23 documented as of this encounter
--- OUTSIDE RECORDS SUMMARY | 2024-05-23 14:05 | XMS_ITS | Encounter Summary ---
[place] [address] Care Team Providers Care Forest And Conservation Worker Name Role Phone Magdalena Acosta MD Primary Care Provider [phone] Reason for Visit * Reason Comments Annual Exam Encounter Details Date Type Department Care Team (Late st Contact Info) Description 02/22/2024 4:15 PM EDT Office Visit Dermatology at [address] [phone] Marek Bonilla MD [address] [facility] DERMATOLOGY [place], [place] [phone] Seborrheic keratosis; Rosacea; Nevus Social History Tobacco [...] and ocular 3. Previously told by corporate events director that she had corneal tears from [...] PM EST Hospital Encounter [place] [address] Markel Borjas MD [facility] DR HEMATOLOGY [place] [address] 06/05/2024 2:00 PM EST - 06/05/2024 3:00 PM EST Surgery [place] [address] Markel Borjas MD [facility] DR HEMATOLOGY [place] [address] (OSC MSURG) BONE MARROW BIOPSY AND ASPIRATION; DIAGNOSTIC (WRVU 1.44) 06/23/2024 2:00 PM EST Office Visit [place] [address] Markel Borjas MD [facility] DR HEMATOLOGY [place] [address] 03/01/2025 4:15 PM EDT Office Visit Dermatology at [place] [address] [place] [phone] Marek Bonilla MD [address], [place] [address] Scheduled Procedures Name Priority Associated Diagnoses Date/Ti me (OSC MSURG) BONE MARROW BIOPSY AND ASPIRATION; DIAGNOSTIC (WRVU 1.44) Anemia, in pt with longstanding neutropenia 06/05/2024 2:00 PM EST documented as of this encounter Visit Diagnoses Diagnosis Seborrheic keratosis Other seborrheic keratosis Rosacea Nevus Benign neoplasm of skin, site unspecified documented in this encounter Care Teams Forest And Conservation Worker Relationship Specialty Start Date End Date Magdalena Acosta MD [address] [place] [address] PCP - General Family Medicine 02/05/23 documented as of this encounter
--- OUTSIDE RECORDS SUMMARY | 2024-05-23 14:05 | XMS_ITS | Encounter Summary ---
Author Organization [facility] [place] [address] Care Team Providers Care Foxpro Developer Name Role Phone Magdalena Acosta MD Primary Care Provider [phone] Reason for Visit * Reason Comments Aortic Stenosis Coronary Artery Disease Hypertension Encounter Details Date Type Department Care Team (Latest Contact Info) Description 11/16/2023 11:40 AM EDT TH Visit (TeleHealth) Cardiology at [address] [address] Jay Maza PA [facility] [place] [address] Aortic valve stenosis, etiology of cardiac valve disease unspecified; Coronary artery disease, unspecified vessel or lesion type, unspecified whether angina present, unspecified whether [place] or transplanted heart Social History Tobacco Use [...] MD ([facility] Cards - [facility]) Problem List: Aortic valve stenosis: prior [...] Mild coronary artery disease by [facility] 11/09/2022 I25.10 Heart failure with [...] notable for coronary artery protection given low [id number] distance. There was no obstruction post Valve [...] had a very reassuring recent echo in [facility], in scanned docs. LVEF 55%. Valve [...] leads Confirmed by MD Harshil, Haris Bell ([id number]) on 05/10/2023 8:11:46 AM Cardiac Cath 11/09/2022 [...] in one year. EKATERINA Thompson Time spent: [id number] 0-5min [id number] 6-10min [id number] 11-15min x [id number] 16-20min [id number] 21-30min [id number] 31-40min [id number] 40+ min Jay Maza PA-C Interventional Cardiology [facility] Heart [facility] V[facility] Pager [phone] documented in this encounter Plan of Treatment Upcoming Encounters Date Type Department Care Team (Late st Contact Info) Description 06/05/2024 2:00 PM EST Hospital Encounter [facility]patient [place] [address] Markel Borjas MD [facility] DR [place] [address] 06/05/2024 2:00 PM EST - 06/05/2024 3:00 PM EST Surgery [place] [address] Markel Borjas MD [facility] DR [place] [address] (OSC MSURG) BONE MARROW BIOPSY AND ASPIRATION; DIAGNOSTIC (WRVU 1.44) 06/23/2024 2:00 PM EST Office Visit Hematology [place] [phone] Markel Borjas MD [facility] DR [place] [address] 03/01/2025 4:15 PM EDT Office Visit Dermatology at [address] [address] Marek Bonilla MD [address] [facility] [place] A DERMATOLOGY [place], [place] [phone] Scheduled Procedures Name Priority Associated Diagnoses Date/Ti me (OSC MSURG) BONE MARROW BIOPSY AND ASPIRATION; DIAGNOSTIC (WRVU 1.44) Anemia, in pt with longstanding neutropenia 06/05/2024 2:00 PM EST documented as of this encounter Visit Diagnoses Diagnosis Aortic valve stenosis, etiology of cardiac valve disease unspecified Coronary artery disease, unspecified vessel or lesion type, unspecified whether angina present, unspecified whether [place] or transplanted heart documented in this encounter Care Teams Foxpro Developer Relationship Specialty Start Date End Date Magdalena Acosta MD [address] [place] [address] PCP - General Family Medicine 02/05/23 documented as of this encounter
--- OUTSIDE RECORDS SUMMARY | 2024-05-23 14:05 | XMS_ITS | Encounter Summary ---
[place] [address] Care Team Providers Care Ordnance Technician Name Role Phone Magdalena Acosta MD Primary Care Provider [phone] Reason for Referral * Consultation (Routine) - Closed Specialty Diagnoses / Procedures Referred By Contac t Referred To Contact Hematology and Oncology Diagnoses Anemia, unspecified type Consuelo Guerrero DO [address] [place] [address] [address] [place] [address] [facility] Onc [address] [place] [address] Referral ID Status Reason Start Date Expiration Date V isits Requested Visits Authorized [id number] Closed Consult, Test & Treat 04/11/2024 04/11/2025 1 1 Encounter Details Date Type Department Care Team (Late st Contact Info) Description 04/11/2024 Transcribe Orders eDH Incoming Referrals [phone] Consuelo Guerrero DO [address] [place] [address] [address] [place] [address] Anemia, unspecified type Social History Tobacco Use Types Packs/Day Years Used Date Smoking Tobacco: Never Smokeless Tobacco: Never Alcohol Use Standard Drinks/Week Comments No 0 (1 standard drink = 0.6 oz pur e alcohol) none [facility] Inpatient Questions Answer Date [...] PM EST Hospital Encounter Outpatient [place] [address] Markel Borjas MD [facility] DR [place] [address] 06/05/2024 2:00 PM EST - 06/05/2024 3:00 PM EST Surgery Outpatient [place] [address] Markel Borjas MD [facility] DR [place] [address] (OSC MSURG) BONE MARROW BIOPSY AND ASPIRATION; DIAGNOSTIC (WRVU 1.44) 06/23/2024 2:00 PM EST Office Visit Hematology [place] [address] Markel Borjas MD [facility] DR [place] [address] 03/01/2025 4:15 PM EDT Office Visit Dermatology at [place] [address] [facility] [place] [phone] Marek Bonilla MD [address] [facility] [place] [address] Scheduled Procedures Name Priority Associated Diagnoses Date/Ti me (OSC MSURG) BONE MARROW BIOPSY AND ASPIRATION; DIAGNOSTIC (WRVU 1.44) Anemia, in pt with longstanding neutropenia 06/05/2024 2:00 PM EST Scheduled Referrals Name Type Priority Associated Diagnoses Orde r Schedule Referral to Hematology and Oncology Outpatient Referral Routine Anemia, unspecified type Ordered: 04/11/2024 documented as of this encounter Visit Diagnoses Diagnosis Anemia, unspecified type documented in this encounter Care Teams Ordnance Technician Relationship Specialty Start Date End Date Magdalena Acosta MD [address] [place] [address] PCP - General Family Medicine 02/05/23 documented as of this encounter
--- OUTSIDE RECORDS SUMMARY | 2024-05-23 14:05 | XMS_ITS | Encounter Summary ---
Author Organization [facility] Address [facility] [place] [address] Care Team Providers Care Clinical Exercise Physiologist Name Role Phone Magdalena Acosta MD Primary Care Provider [phone] Encounter Details Date Type Department Care Team (Late st Contact Info) Description 07/29/2023 11:00 AM EST Office [place] [address] Magdalena Peralta MD [facility] [place] [address] Mixed connective tissue disease Social History Tobacco [...] 1:5120 speckled; VIC negative; Myositis panel with REED FIXER ab 149.1 (positive); Anti U1RNP IgG 119; [...] Viramontes. Magdalena Peralta MD Rheumatology Fellow Pager: [phone] * Kia Viramontes DO - 07/29/2023 11:00 AM EST ATTENDING ADDENDUM The patient's history was reviewed, and I interviewed and examined the patient with Dr. Peralta I agree with her summary, findings, and plan. documented in this encounter Plan of Treatment Upcoming Encounters Date Type Department Care Team (Late st Contact Info) Description 06/05/2024 2:00 PM EST Hospital Encounter [place]patient [place] [address] Markel Borjas MD [facility] DR HEMATOLOGY [place] [address] 06/05/2024 2:00 PM EST - 06/05/2024 3:00 PM EST Surgery Outpatient [place] [address] Markel Borjas MD [facility] DR HEMATOLOGY [place] [address] (OSC MSURG) BONE MARROW BIOPSY AND ASPIRATION; DIAGNOSTIC (WRVU 1.44) 06/23/2024 2:00 PM EST Office Visit Hematology [place] [phone] Markel Borjas MD [facility] DR HEMATOLOGY [place] [address] 03/01/2025 4:15 PM EDT Office Visit Dermatology at [place] [address] [place] [address] Marek Bonilla MD [address], [address] [place] [address] Scheduled Procedures Name Priority Associated Diagnoses Date/Ti [...] PFT FEV1/FVC Pre-BD Z-Score 0 COMPAS PFT EJQ85-57 Actual Pre-BD 2.41 % COMPAS PFT NZC17-57 Predicted 1.8 % COMPAS PFT ZUL54-18 Pre-BD % of Predicted 134 % COMPAS PFT IJX53-33 Pre-BD Z-Score 0.81 COMPAS PFT DLCO Hb [...] tissue documented in this encounter Care Teams Clinical Exercise Physiologist Relationship Specialty Start Date End Date Magdalena Acosta MD [address] [place] [address] PCP - General Family Medicine 02/05/23 documented as of this encounter
--- OUTSIDE RECORDS SUMMARY | 2024-05-23 14:05 | XMS_ITS | Encounter Summary ---
Author Organization [facility] [place] [address] Care Team Providers Care Clerk General Office Name Role Phone Magdalena Acosta MD Primary [...] PM EST Hospital Encounter Outpatient [place] [address] Markel Borjas MD [facility] DR HEMATOLOGY [place] [address] 06/05/2024 2:00 PM EST - 06/05/2024 3:00 PM EST Surgery Outpatient [place] [address] Markel Borjas MD [facility] DR HEMATOLOGY [place] [address] (OSC MSURG) BONE MARROW BIOPSY AND ASPIRATION; DIAGNOSTIC (WRVU 1.44) 06/23/2024 2:00 PM EST Office Visit Hematology [place] [address] Markel Borjas MD [facility] DR HEMATOLOGY [place] [address] 03/01/2025 4:15 PM EDT Office Visit Dermatology at [place] [address] [place] [address] Marek Bonilla MD [address], [place] [address] Scheduled Procedures Name Priority Associated Diagnoses Date/Ti me (OSC MSURG) BONE MARROW BIOPSY AND ASPIRATION; DIAGNOSTIC (WRVU 1.44) Anemia, in pt with longstanding neutropenia 06/05/2024 2:00 PM EST documented as of this encounter Visit Diagnoses Not on filedocumented in this encounter Care Teams Clerk General Office Relationship Specialty Start Date End Date Magdalena Acosta MD [address] [place] [address] PCP - General Family Medicine 02/05/23 documented as of this encounter
--- OUTSIDE RECORDS SUMMARY | 2024-05-23 14:05 | XMS_ITS | Encounter Summary ---
Author Organization [facility] [place] [address] Care Team Providers Care Wire Drawing Machine Operator Name Role Phone Magdalena Acosta MD Primary Care Provider [phone] Encounter Details Date Type Department Care Team [...] PM EST Hospital Encounter [place]patient [place] [address] Markel Borjas MD [facility] DR HEMATOLOGY [place] [address] 06/05/2024 2:00 PM EST - 06/05/2024 3:00 PM EST Surgery [place]patient [place] [address] Markel Borjas MD [facility] DR HEMATOLOGY [place] [address] (OSC MSURG) BONE MARROW BIOPSY AND ASPIRATION; DIAGNOSTIC (WRVU 1.44) 06/23/2024 2:00 PM EST Office Visit Hematology [place] [address] Markel Borjas MD [facility] DR HEMATOLOGY [place] [address] 03/01/2025 4:15 PM EDT Office Visit Dermatology at [place] [address] [place] [phone] Marek Bonilla MD [address], [place] [address] Scheduled Procedures Name Priority Associated Diagnoses Date/Ti me (OSC MSURG) BONE MARROW BIOPSY AND ASPIRATION; DIAGNOSTIC (WRVU 1.44) Anemia, in pt with longstanding neutropenia 06/05/2024 2:00 PM EST documented as of this encounter Visit Diagnoses Not on filedocumented in this encounter Care Teams Wire Drawing Machine Operator Relationship Specialty Start Date End Date Magdalena Acosta MD [address] [place] [address] PCP - General Family Medicine 02/05/23 documented as of this encounter
--- OUTSIDE RECORDS SUMMARY | 2024-05-23 14:05 | XMS_ITS | Encounter Summary ---
Author Organization [facility] [address] Care Team Providers Care Oracle Wms Consultant Name Role Phone Magdalena Acosta MD Primary Care Provider [phone] Encounter Details Date Type Department Care Team (Late st Contact Info) Description 07/08/2023 10:15 AM EST Office Visit Cardiology at [address] [phone] Severe aortic stenosis Social History Tobacco Use Types Packs/Day Years Used Date Smoking Tobacco: Never Smokeless Tobacco: Never Alcohol Use Standard Drinks/Week Comments No 0 (1 standard drink = 0.6 oz pur e alcohol) none [facility] Inpatient Questions Answer Date Recorded Does Anyone [...] PM EST Hospital Encounter Outpatient [place] [address] Markel Borjas MD [facility] [address] [place] [address] 06/05/2024 2:00 PM EST - 06/05/2024 3:00 PM EST Surgery Outpatient [place] [address] Markel Borjas MD [facility] [address] [place] [address] (OSC MSURG) BONE MARROW BIOPSY AND ASPIRATION; DIAGNOSTIC (WRVU 1.44) 06/23/2024 2:00 PM EST Office Visit [place]ology [place] [address] Markel Borjas MD [facility] [address] [place] [address] 03/01/2025 4:15 PM EDT Office Visit Dermatology at [place] [address] [place] [address] Marek Bonilla MD [address], [place] [address] Scheduled Procedures Name Priority Associated Diagnoses Date/Ti [...] (Bezet) 449 ms MUSE SYSTEM Calculated P Bokeelia 66 degrees MUSE SYSTEM Calculated R Bokeelia 60 degrees MUSE SYSTEM Calculated T Bokeelia 53 degrees MUSE SYSTEM INTERPRETATION Normal sinus rhythm Minimal voltage criteria for LVH, may be normal variant ( Sokolow-Orozco ) ST & T wave abnormality, consider lateral ischemia ??vs. repolarization abnormality from LVH Abnormal ECG When compared with ECG of 13-MAY-2023 09:22, Premature ventricular complexes are no longer Present Minimal criteria for Septal infarct are no longer Present Confirmed by Maxx Best ([id number]) on 07/09/2023 10:07:22 AM MUSE SYSTEM 07/08/2023 10:2 7 AM EST 07/09/2023 10:07 AM EST Brody Kaplan APRN ECG ORDERABLES MUSE SYSTEM documented in this encounter Visit Diagnoses Diagnosis Severe aortic stenosis Aortic valve disorders documented in this encounter Care Teams Oracle Wms Consultant Relationship Specialty Start Date End Date Magdalena Acosta MD [address] [place] [address] PCP - General Family Medicine 02/05/23 documented as of this encounter
--- OUTSIDE RECORDS SUMMARY | 2024-05-23 14:05 | XMS_ITS | Encounter Summary ---
Author Organization [facility] [place] [address] Care Team Providers Care Channel Process Plant Operator Name Role Phone Magdalena Acosta MD Primary Care Provider [phone] Reason for Referral * Diagnostic Test (Routine) - New Request Specialty Diagnoses / Procedures Referred By Contac t Referred To Contact Cardiology Diagnoses S/P TAVR (transcatheter aortic valve replacement) Procedures Echocardiogram Transthoracic Antelmo Sharma MD [facility] [place] [address] [facility] [place] [address] Referral ID Status Reason Start Date Expiration Date Visits Requested Visits Authorized [id number] New Request Specialty Service Requested 12/16/2023 12/15/2024 1 1 Encounter Details Date Type Department Care Team (Late st Contact Info) Description 12/16/2023 Orders Only Cardiology at [address] [address] Antelmo Sharma MD [facility] [place] [address] S/P TAVR (transcatheter aortic valve [...] PM EST Hospital Encounter Outpatient [place] [address] Markel Borjas MD [facility] DR HEMATOLOGY [place] [address] 06/05/2024 2:00 PM EST - 06/05/2024 3:00 PM EST Surgery Outpatient [place] [address] Markel Borjas MD [facility] DR HEMATOLOGY [place] [address] (OSC MSURG) BONE MARROW BIOPSY AND ASPIRATION; DIAGNOSTIC (WRVU 1.44) 06/23/2024 2:00 PM EST Office Visit [place]ematology [place] [address] Markel Borjas MD [facility] HEMATOLOGY [place] [address] 03/01/2025 4:15 PM EDT Office Visit Dermatology at [address] [place] [address] Marek Bonilla MD [address], [place] [address] Scheduled Orders Name Type Priority Associated Diagnoses [...] replacement) documented in this encounter Care Teams Channel Process Plant Operator Relationship Specialty Start Date End Date Magdalena Acosta MD [address] [place] [address] PCP - General Family Medicine 02/05/23 documented as of this encounter
--- OUTSIDE RECORDS SUMMARY | 2024-05-23 14:05 | XMS_ITS | Encounter Summary ---
Author Organization [facility] [address] Care Team Providers Care Steel Post Installer Supervisor Name Role Phone Magdalena Acosta MD Primary Care Provider [phone] Reason for Visit * Reason Comments Coronary Artery Disease Hypertension Aortic Stenosis Encounter Details Date Type Department Care Team (Latest Contact Info) Description 07/20/2023 4:40 PM EST TH Visit (TeleHealth) Cardiology at [address] [address] Jay Maza PA [facility] [place] [address] HFrEF (heart failure with reduced ejection fraction); [...] PA - 07/20/2023 4:40 PM EST [facility] Interventional [...] lieu of an in person office visit. Accounting File Clerk: Antelmo Sharma MD ([facility] Cards) Maria Luz Mejia MD ([facility] cards) Problem List: : [...] notable for coronary artery protection given low sxrjx-gh-hiypqaql distance. There was no obstruction post Valve deployment, but the stent could not be removed safely, so it was deployed. 4.0 mm x 30mm in left main. She was loaded on brilinta aka ticagrelor. Immediately post valve deployment, chest compressions to circulate central epinephrine which was administered given her hypotension, low LVEF, and low cardiac reserve. Next, the patient was transferred to [facility] for pressor and inotropic support. Pressors weaned overnight. Cardiac indices by thermodilution remained greater than 3 with continued Milrinone 0.125 mcg/kg/min. EKG the next day with NSR with stable ME/QRS intervals. Hemoglobin 7.8 [...] arms and wrists. Successful right transfemoral TAVR Vzzzo-ty-Iyced with a 23 mm Lai 3 THV. [...] leads Confirmed by MD Harshil, Haris Bell ([id number]) on 05/10/2023 8:11:46 AM Cardiac Cath 11/09/2022 [...] in chart review and direct patient contact. [id number] 0-5min [id number] 6-10min [id number] 11-15min 3423CZO2 16-20min x [id number] 21-30min 9235TGJ1 31-40min 3882THC6 40+ min Jay Maza PA-C Interventional Cardiology [facility] Critical access hospital Pager [phone] documented in this encounter Plan of Treatment Upcoming Encounters Date Type Department Care Team (Late st Contact Info) Description 06/05/2024 2:00 PM EST Hospital Encounter Outpatient [place] [address] Markel Borjas MD [facility] DR HEMATOLOGY [place] [address] 06/05/2024 2:00 PM EST - 06/05/2024 3:00 PM EST Surgery Outpatient [place] [address] Markel Borjas MD [facility] DR HEMATOLOGY [place] [address] (OSC MSURG) BONE MARROW BIOPSY AND ASPIRATION; DIAGNOSTIC (WRVU 1.44) 06/23/2024 2:00 PM EST Office Visit Hematology [place] [address] Markel Borjas MD [facility] DR HEMATOLOGY [place] [address] 03/01/2025 4:15 PM EDT Office Visit Dermatology at [place] [address] [place] [address] Marek Bonilla MD [address] [place] [address] Scheduled Procedures Name Priority Associated Diagnoses Date/Ti [...] this encounter Care Teams Steel Post Installer Supervisor Relationship Specialty Start Date End Date Magdalena Acosta MD [address] [place] [address] PCP - General Family Medicine 02/05/23 documented as of this encounter
--- OUTSIDE RECORDS SUMMARY | 2024-05-23 14:06 | XMS_ITS | Encounter Summary ---
Author Organization [place] [id number] Care Team Providers Care Search Engine Optimization Manager Name Role Phone Magdalena Acosta MD Primary Care Provider [phone] Reason for Visit * Auth/Cert (Routine) Specialty Diagnoses / Procedures Referred By Contac t Referred To Contact Diagnoses Symptomatic severe aortic stenosis with low ejection fraction NSTEMI, CHF Haris Chua MD [facility] [place] [address] [facility] Referral ID Status Reason Start Date Expiration Date Visits Re quested Visits Authorized [id number] 1 1 Encounter Details Date Type Department Care Team (Late st Contact Info) Description 05/12/2023 7:35 AM EDT Anesthesia Event [place] [address] Lynda Mcgowan MD [facility] [place] [address] Alie Park MD [facility] [place] [address] Anesthesia Record Procedure Summary Procedure Name Responsible [...] cephalic vein (lateral side of arm), left; fxxz-riv-rtylce catheter system; Anatomical Landmarks; US Not Used; [...] RN LDA Cath/EP Sheath 05/12/23; 0733; 14 Tajik (Fr); Right; Femoral; Arterial 05/12/23 0733 by Guerda Bender, RN 05/12/23 0830 by Guerda Bender RN LDA Cath/EP Sheath 05/12/23; 0734; 6 Tajik (Fr); Right; Femoral; Venous 05/12/23 0734 by Guerda Bender RN 05/12/23 0817 by Guerda Bender RN LDA Cath/EP Sheath 05/12/23; 0734; 7 Tajik (Fr); Left; Femoral; Arterial 05/12/23 0734 by Guerda Bender, RN 05/12/23 0837 by Guerda Bender RN LDA Cath/EP Sheath 05/12/23; 0734; 6 Tajik (Fr); Left; Femoral; Venous 05/12/23 0734 by [...] Procedure Summary Date: 05/12/23 Room / Location: [facility] / [facility] Anesthesia Start: 734 Anesthesia [...] All Anesthesia Providers: Anesthesiologist: Lynda Mcgowan MD Organizational Psychologist: Nico Graham MD Vitals Value Taken Time [...] ??? Mild coronary artery disease by [facility] 11/09/2022 05/08/2023 ??? Heart failure with [...] [facility],P[facility] (WRVU 5.6) performed by Nitesh Escobedo MD at [facility] ??? PRO AORTOPLAS FOR SUPRAVALV STEN N/A 09/21/2016 @AORTOPLASTY FOR SUPRAVALVULAR STENOSIS (WRVU 29.33) performed by Alirio Esparza MD at [facility] MAIN OR ??? PRO REPLACEMENT PROSTHETIC AORTIC VALVE OPEN W CARDIOPULMONARY BYPASS HOMOGRF/STENT N/A 09/21/2016 @REPLACE AORTIC VALVE, OPEN, W\CPB, W\PROSTHETIC VALVE (WRVU 41.32) performed by Alirio Esparza MD at [facility] MA[facility] Social History Tobacco Use [...] 3 general, with a(n) intravenous induction Add-on qygcu-cp-dkynh TAVR. In cardiogenic shock. Has arterial line, [...] PM EST Hospital Encounter Outpatient [place] [address] Markel Borjas MD [facility] [address] [place] [address] 06/05/2024 2:00 PM EST - 06/05/2024 3:00 PM EST Surgery Outpatient [place] [address] Markel Borjas MD [facility] [address] [place] [address] (OSC MSURG) BONE MARROW BIOPSY AND ASPIRATION; DIAGNOSTIC (WRVU 1.44) 06/23/2024 2:00 PM EST Office Visit Hematology [place] [address] Markel Borjas MD [facility] [address] [place] [address] 03/01/2025 4:15 PM EDT Office Visit Dermatology at [place] [address] [place] [address] Marek Bonilla MD [address] [place] [address] Scheduled Procedures Name Priority Associated Diagnoses Date/Ti [...] mL/hr documented in this encounter Care Teams Search Engine Optimization Manager Relationship Specialty Start Date End Date Magdalena Acosta MD [address] [place] [address] PCP - General Family Medicine 02/05/23 documented as of this encounter
--- OUTSIDE RECORDS SUMMARY | 2024-05-23 14:06 | XMS_ITS | Encounter Summary ---
Author Organization [facility] Address [facility] [place] [address] Care Team Providers Care Veterinary Nurse Name Role Phone Magdalena Acosta MD Primary Care Provider [phone] Reason for Referral * Diagnostic Test (Routine) - Closed Specialty Diagnoses / Procedures Referred By Contac t Referred To Contact Cardiology Diagnoses S/P TAVR (transcatheter aortic valve replacement) Procedures Echocardiogram Transthoracic Vinod Juárez PA [facility] [place] [address] [facility] [place] [address] Referral ID Status Reason Start Date Expiration Date V isits Requested Visits Authorized [id number] Closed Specialty Service Requested 05/22/2023 05/21/2024 1 1 * Home Health Care (Routine) - Closed Specialty Diagnoses / Procedures Referred By Contac t Referred To Contact Diagnoses S/P TAVR (transcatheter aortic valve replacement) Alirio Hudson MD [facility] CARDIOTHORACIC SURGERY [address] [facility] & [address] [place] [address] Referral ID Status Reason Start Date Expiration Date V isits Requested Visits Authorized [id number] Closed Consult, Test & Treat 05/22/2023 11/18/2023 999 999 * Consultation (Routine) - Closed Specialty Diagnoses / Procedures Referred By Crispin maxwell Referred To Contact Cardiology Diagnoses S/P TAVR (transcatheter aortic valve replacement) Alirio Hudson MD [facility] CARD[place] [address] Cardiac Rehab, [address] [place] [address] Referral ID Status Reason Start Date Expiration Date V isits Requested Visits Authorized [id number] Closed Consult, Test & Treat 05/22/2023 11/18/2023 36 36 * Diagnostic Test (Routine) - Closed Specialty Diagnoses / Procedures Referred By Crispin maxwell Referred To Contact Cardiology Diagnoses Aortic valve stenosis, etiology of cardiac valve disease unspecified Procedures Echocardiogram Transthoracic Transesophageal Echocardiogram (YUSRA) Radha Hollins MD [facility] [place] [address] [facility] [place] [address] Referral ID Status Reason Start Date Expiration Date V isits Requested Visits Authorized [id number] Closed Specialty Service Requested 05/11/2023 05/10/2024 1 1 Reason for Visit * Auth/Cert (Routine) Specialty Diagnoses / Procedures Referred By Crispin maxwell Referred To Contact Diagnoses Symptomatic severe aortic stenosis with low ejection fraction NSTEMI, CHF Enrique Chua MD [facility] [place] [address] [facility] Referral ID Status Reason Start Date Expiration Date Visits Re quested Visits Authorized [id number] 1 1 Encounter Details Date Type Department Care Team (Latest Contact Info) Description 05/08/2023 9:14 AM EDT - 05/22/2023 10:46 AM EDT Hospital Encounter Heart and Vascular Unit Level 4 [place] [address] Enrique Chua MD [facility] [place] [address] Juan Luis Gonzalez MD [facility] [place] [address] Radha Hollins MD [facility] [place] [address] Alirio Hudson MD S/P TAVR (transcatheter aortic valve replacement) (Primary Dx); Aortic valve stenosis, etiology of cardiac valve disease unspecified; Symptomatic severe aortic stenosis with low ejection fraction; Heart failure with reduced ejection fraction due to heart valve disease; Mild coronary artery disease by [facility] 11/09/2022; Mixed connective tissue disease; [...] Patient Age: 67 y.o. Birthdate: 1955 Language: Upper Sorbian Race: White Ethnicity: Not nor Admit Date: 05/08/2023 Discharge Date: 05/22/2023 Attending Physician: Alirio Hudson MD Follow-up Recommendations for Providers: Please continue routine management of cardiovascular risk factors including blood pressure, lipids,glucose, etc. Please note any medication changes. Patient to follow up with PCP, Magdalena Acosta MD, or Primary Dairy Supplies Sales Representative, Maria Luz Mejia MD, in ~ 7-10 days. Patient to follow up with Perioperative Manager, Dr. Antelmo Sharma, in 2 weeks with an EKG, Echo, CBC, and CMP. Patient to follow up with Nephrology, their office to arrange. Mfhx-Oahjsa-ep interval: After initial 30 day follow-up appointment , all TAVR patients will follow-up again in one year with an echo. 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 Secondary Diagnoses: Active Hospital Problems Diagnosis S/P TAVR (transcatheter aortic valve replacement) Cardiogenic shock Symptomatic severe aortic stenosis with low ejection fraction Mild coronary artery disease by [facility] 11/09/2022 Heart failure with reduced [...] Tube Placement Right 05/18/2023 Laure Ricks PA [facility] INTERVENTIONL RAD PRG CATH PLMT LEFT HEART CATH & ARTS W/INJ & ANGIO IMG S&I N/A 11/09/2022 CORONARY ANGIOGRAPHY; W [facility],POSSIBLE PCI (WRVU 5.6) performed by Mario Alberto Escobedo MD at [facility] CATH LABS PRG COMBINED RIGHT & LEFT HEART CATH W/INJ L VENTRICULOGRAPHY, IMG S&I N/A 05/12/2023 COMBINED RIGHT & LEFT HEART CATH,INC INJ FOR L VENTRICULOGRAPHY (WRVU 5.99) performed by Antelmo Sharma MD at [facility] CATH [facility] PRO AORTOPLAS FOR SUPRAVALV STEN N/A 09/21/2016 @AORTOPLASTY FOR SUPRAVALVULAR STENOSIS (WRVU 29.33) performed by Alirio Hudson MD at [facility] MAIN OR PRO REPLACE AORTIC VALVE (TAVR/FEDERICO)PERC FEMORAL ARTERY APPROACH 05/12/2023 @TRANSCATHETER AORTIC VALVE REPLACEMENT (TAVR), PERCUTANEOUS FEMORAL (WRVU 22.47) performed by Alirio Hudson MD at [facility] CATH [facility] PRO REPLACEMENT PROSTHETIC AORTIC VALVE OPEN W CARDIOPULMONARY BYPASS HOMOGRF/STENT N/A 09/21/2016 @REPLACE AORTIC VALVE, OPEN, W\CPB, W\PROSTHETIC VALVE (WRVU 41.32) performed by Alirio Hudson MD at [facility] MAIN OR Prior To Admission Medications [...] Major Procedures/Operations: 05/12/23: Successful right transfemoral TAVR Kprxc-il-Alwmw with a 23 mm Lai 3 THV. [...] and she was brought to the lab support tech the following morning where Drs. Alirio Hudson [...] if you have questions. Please call your Perioperative Manager's office if you have any discharge or drainage from your procedural sites. Your Perioperative Manager, Dr. Antelmo Sharma and/or the Full Stack Engineer may be reached at . Antibiotic prophylaxis: You will need to take antibiotics prior to many invasive tests and treatments, such as dental cleaning, which should be done every 6 months. Your primary care physician or your dentist can prescribe this medication. Please refer to the card with the [place] [employer] Guidelines for more information. You have been provided with a copy of this card. Please refer to the [place] [employer] Guidelines for more information. Good [...] friends, go to a movie, go to mosque, etc. Heavy activities: No hunting, skiing, jogging, [...] should resume a low fat, low cholesterol, [place] [employer] Diet Driving: No restrictions. Shower/Bath: You may shower daily. No baths, soaking, or swimming for the first week. Wound care: Wash the sites daily with soap and rinse well, pat dry. Assess for any signs of infection such as increased redness, pain, warmth or drainage. Please call your transit mixer driver's office if you have any discharge or drainage from your procedural sites. If there is a lot of swelling, apply mamta wraps during the day and remove at bedtime. Elevate your legs when you are sitting. Home oxygen therapy: N/A Follow up appointments: Please schedule a follow-up appointment with your PCP, Magdalena Acosta MD, or Primary Dairy Supplies Sales Representative in ~ 7-10 days. You have a follow-up appointment with your Perioperative Manager, Dr. Antelmo Sharma, in 2 weeks with an EKG, Echo, and labs prior to your appointment. You will need follow-up with Nephrology, their office will arrange. Denh-Vfwfcr-gw interval: After initial 30 day follow-up appointment [...] 11:00 AM Magdalena Peralta MD [place]ology at [facility] [place]rive at: [address] [phone] 02/11/2024 2:00 PM Marek Bonilla MD Dermatology at [place] Arrive at: [facility] [address] [phone] Future Orders Complete By Expires Type and Screen Future Surgery, [facility] SAME DAY PROGRAM ONLY) [GDV7871 Custom] 05/11/2023 Process Instructions: This test is intended ONLY for patients with upcoming surgery for testing prior to the day of surgery obtained through the same day program (4V or SDP). For ALL OTHER PATIENTS, order a Type and Screen (FOC061) This order includes the physician order for an ABO Recheck if requested by the Blood Bank. Scheduling Instructions: Comments: Questions: Date of surgery: CBC (with Diff) [OGV014 Custom] 06/05/2023 12/05/2023 Process Instructions: INCLUDES: WBC, RBC, Hgb, Hct, Platelets, RBC Indices and Differential Scheduling Instructions: Comments: Questions: Comprehensive metabolic panel (non-fasting) [LAB17 Custom] 06/05/2023 08/20/2023 Process Instructions: INCLUDES: Calcium, T Protein, Albumin, AST, ALT, Alk Phos, T Bili, BUN, Creat, GFR, Glucose, Lytes. Scheduling Instructions: Comments: Questions: Echocardiogram Transthoracic [09095 CPT(R)] 06/05/2023 12/05/2023 Process Instructions: Scheduling Instructions: Questions: Where will study be performed?: [facility] Does the patient have Congenital Heart Disease?: Does patient require sedation?: GA rationale: EKG 12 Lead [65781 CPT(R)] 06/05/2023 12/05/2023 Process Instructions: Scheduling Instructions: Questions: Which location will this be performed?: [place] Is a rhythm strip needed?: No [facility] Devices [EQ161 Custom] As directed Process Instructions: Scheduling Instructions: Questions: Device Needed: WALKER (E0143) Patient Height (cm): 154.9 cm (5' 0.98) Patient Weight: 75.4 kg (166 lb 3.2 oz) Diagnosis: Unsteady gait when walking Referral to Cardiac Rehab [JUE689 Custom] As directed Process Instructions: If no [...] VNA SERVICES PATIENT'S LOCATION: Purnima Thacker [address] [place] [phone] (home) Eyelet Maker's Name: Self and brother Raymond In discussion with the attending physician, it is certified that this patient is under his/her careand that MD, or an FRICTION WELDING MACHINE OPERATOR, CYLINDER WORKER, or PA who is working directly with him/her, had a qnqp-rc-roey encounter that meets the physician weoj-sv-ggqu encounter requirements with this patient on 05/22/2023. [...] for managing ADLs. HOME HEALTH CARE AGENCY: [facility]. [address] [place] [address] PHONE: [phone] FAX: [phone] Start of care: Ideally 24-48 hours after [...] Magdalena Acosta MD [address] / [facility] [address] All VNA agencies which cover the area of patient's residence have been reviewed, either verbally joao writing, and patient has chosen the home health care agency noted. Questions: Disciplines Requested: Physical Therapy Occupational Therapy Discharge References/Attachments None Arrangements for VNA/home care: As above. (delete if no VNA) Signed: EKATERINA NAVARRETE [facility] Section of Cardiac Surgery Date: 05/22/2023 CC: Magdalena Acosta MD SaludaMario Alberto MD [address] [place] [address] documented in this encounter Discharge Instructions * Patient Instructions* Vinod Juárez PA - 05/22/2023 9:32 AM EDT TAVR Discharge Instructions: Call your doctor if: You have a fever of greater than 101 degrees, shaking chills, if you develop redness or drainage from your procedure sites, or if you have questions. Please call your Perioperative Manager's office if you have any discharge or drainage from your procedural sites. Your Perioperative Manager, Dr. Antelmo Sharma and/or the Full Stack Engineer may be reached at . Antibiotic prophylaxis: You will need to take antibiotics prior to many invasive tests and treatments, such as dental cleaning, which should be done every 6 months. Your primary care physician or your dentist can prescribe this medication. Please refer to the card with the [place] [employer] Guidelines for more information. You have been provided with a copy of this card. Please refer to the [place] Heart [employer] Guidelines for more information. Good [...] friends, go to a movie, go to mosque, etc. Heavy activities: No hunting, skiing, jogging, [...] should resume a low fat, low cholesterol, [place] [employer] Diet Driving: No restrictions. Shower/Bath: You may shower daily. No baths, soaking, or swimming for the first week. Wound care: Wash the sites daily with soap and rinse well, pat dry. Assess for any signs of infection such as increased redness, pain, warmth or drainage. Please call your transit mixer driver's office if you have any discharge or drainage from your procedural sites. If there is a lot of swelling, apply mamta wraps during the day and remove at bedtime. Elevate your legs when you are sitting. Home oxygen therapy: N/A Follow up appointments: Please schedule a follow-up appointment with your PCP, Magdalena Acosta MD, or Primary Dairy Supplies Sales Representative in ~ 7-10 days. You have a follow-up appointment with your Perioperative Manager, Dr. Antelmo Sharma, in 2 weeks with an EKG, Echo, and labs prior to your appointment. You will need follow-up with Nephrology, their office will arrange. Lbqx-Tqmivd-nk interval: After initial 30 day follow-up appointment [...] ins ( tef) Haven Ba, PT Pager: [phone] Physical Therapy Inpatient Rehabilitation Department * Nico [...] 0600 and on the weekends please page [phone]. * Jory Paniagua - 05/20/2023 3:52 PM EDT Nutrition Services Note - Low Nutrition Acuity Prunima Thacker is a 67 y.o. female Reason [...] vomiting Last Bowel Movement: 05/20/23 Jory Paniagua Laundry Equipment Operator * Mike Tong, OT - 05/20/2023 3:16 [...] Tube Placement Right 05/18/2023 Laure Ricks PA [facility] INTERVENTIONL RAD PRG CATH PLMT LEFT HEART CATH & ARTS W/INJ & ANGIO IMG S&I N/A 11/09/2022 CORONARY ANGIOGRAPHY; W [facility],POSSIBLE PCI (WRVU 5.6) performed by Mario Alberto Escobedo MD at [facility] CATH LAB[facility] PRG COMBINED RIGHT & LEFT HEART CATH W/INJ L VENTRICULOGRAPHY, IMG S&I N/A 05/12/2023 COMBINED RIGHT & LEFT HEART CATH,INC INJ FOR L VENTRICULOGRAPHY (WRVU 5.99) performed by Antelmo Sharma MD at [facility] CATH [facility] PRO AORTOPLAS FOR SUPRAVALV STEN N/A 09/21/2016 @AORTOPLASTY FOR SUPRAVALVULAR STENOSIS (WRVU 29.33) performed by Alirio Hudson MD at [facility] MAIN OR PRO REPLACE AORTIC VALVE (TAVR/FEDERICO)PERC FEMORAL ARTERY APPROACH 05/12/2023 @TRANSCATHETER AORTIC VALVE REPLACEMENT (TAVR), PERCUTANEOUS FEMORAL (WRVU 22.47) performed by Alirio Hudson MD at [facility] CATH LABS PRO REPLACEMENT PROSTHETIC AORTIC VALVE OPEN W CARDIOPULMONARY BYPASS HOMOGRF/STENT N/A 09/21/2016 @REPLACE AORTIC VALVE, OPEN, W\CPB, W\PROSTHETIC VALVE (WRVU 41.32) performed by Alirio Hudson MD at [facility] MAIN OR Social History: Patient lives alone. Home Setup: Pt lives on one level with tub shower and three steps to enter. DME: none used CASH ACCOUNTANT Baseline ADL/Mobility: Independent with ADLs and IADLs. [...] awareness: WFL Vision & Perception: corrective lenses road tester Communication: WFL Range of motion, strength, coordination: [...] Discharge planning. Total Minutes, Occupational Therapy: 28 ([id number]) OT Evaluation Code Rationale: Diagnosis & Pertinent Co-Morbidities affecting Plan of Care: see PMHx Occupational Profile & Client History: Brief Expanded Extensive x Assessment of Occupational Performance: 1-3 performance deficits 3-5 performance deficits x 5 + performance deficits Clinical Decision Making: Low Moderate High x Clinical decision making of moderate complexity using standardized patient assessment instrument and measurable assessment of functional outcome. Pager: [phone] TONG MIKE OT 05/20/2023 Occupational Therapy Rehabilitation [...] 0600 and on the weekends please page [phone]. * Rylie Rodriguez MD - 05/19/2023 3:59 [...] and plan. Cynthia Blackburn MD Nephrology Pager: [phone] * Diana Espino - 05/19/2023 1:49 PM EDT Mica Builder Encounter Note Patient Name: Purnima Thacker : [id number] MR#: [id number] Admit Date: 05/08/2023 9:14 AM Hospital Day [...] as stated. Total Minutes, Physical Therapy: 38 ([id number]) Henrik Dale CANDY Navarrete Pager: [phone] Physical Therapy Inpatient Rehabilitation Department * Nico [...] 0600 and on the weekends please page [phone]. * Laure Ricks PA - 05/19/2023 7:56 [...] Ricks PA-C Interventional Radiology IR Team Pager [phone] * Consuelo Espinoza RN - 05/18/2023 4:13 PM EDT ANGIO NURSING DATABASE Name: Purnima Thacker Date of : 1955 AGE: 67 y.o. [address]: [address] [place] [phone] (home) Mobile: No relevant phone numbers on [...] and plan. Cynthia Blackburn MD Nephrology Pager: [phone] * Magdalena Puri, ANURAG - 05/18/2023 10:51 AM EDT Images from the original note were not included. [place] [address] STRUCTURAL HEART DISEASE CONSULTATION NOTE PRIMARY CARE [...] stenosis. She is now status post TAVR Ebeqo-yk-Dfabk with a 23 mm Lai 3 THV 05/12/[address] Sharma. Preliminary findings: Successful right transfemoral TAVR Eplee-gy-Bnsrz with a 23 mm Lai 3 THV. [...] Transferred to [facility] post- TAVR for pressor/inotropic support (Levo, vaso, [...] by [facility] 11/09/2022 Heart failure with reduced [...] mg 81 mg Oral Daily Mara Serrano WAREHOUSE CHECKER 81 mg at 05/18/23 0826 ondansetron (pf) (Zofran) (2 mg/mL) injection 4 mg 4 mg Intravenous Q8H PRN Mara Serrano TOREYN4 mg at 05/12/23 0736 pantoprazole EC (Protonix) tablet 40 mg 40 mg Oral Daily Mara SerranoTOREYN 40 mg at 05/18/23 0826 Or pantoprazole (Protonix) injection 40 mg 40 mg Intravenous Daily Mara Serrano WAREHOUSE CHECKER 40 mg at 05/12/23 1004 senna-docusate (Pericolace) [...] stenosis. She is now status post TAVR Vjvvi-et-Rbizy with a 23 mm Lai 3 THV 05/12/[address] Sharma. Janet TAVR case notable for coronary LAD protective MINNA. Status post TAVR, the patient was transferred to [facility] for pressor and inotropic support. Pressors weaned [...] Magdalena Puri APRN Structural Heart Team Pager [phone] Team Office Please see addendum by Dr. Sharma for final plan and recommendations Associated attestation - Antelmo Sharma MD - 05/19/2023 10:52 PM EDT I have reviewed Magdalena Puri APRN's above history and I agree with the details as written. The assessment and plan were formulated in discussion with me and I agree with them as documented. Antelmo Sharma MD Pager [phone] * Nico Palacios PA - 05/18/2023 8:13 [...] 0600 and on the weekends please page [phone]. * Loli Hernandez, PT - 05/17/2023 5:27 [...] plan as stated. Time IN / OUT: 8374-3846 Total Minutes, Physical Therapy: 54 Billing Code: te-sx2, te-f, gait LOLI HERNANDEZ PT Pager: [phone] Physical Therapy Inpatient Rehabilitation Department * Cynthia Blackburn MD - 05/17/2023 4:47 PM EDT NEPHROLOGY PROGRESS NOTE 67yo woman with EVASN (baseline unknown) in the setting of contrast [...] Well controlled. Cynthia Blackburn MD Nephrology Pager: [phone] * Mara Serrano, WAREHOUSE CHECKER - 05/17/2023 8:26 AM EDT Cardiac Surgery [...] 0600 and on the weekends please page [phone]. * Guerda Del Valle - 05/16/2023 10:44 AM EDT Nutrition Services Note - Low Nutrition Acuity Purnima Thacker is a 67 y.o. female Reason for intervention: hospital day 9 Nutrition Plan: Continue diet order Encourage good PO Lasix and Zofran noted Added special serve: open containers Monitor weight Patient scheduled for a hospital day 9 nutrition evaluation. Cashier And Salesperson met with pt at bedside. Pt reports that her appetite and PO has much improved since admission. Denies nausea/vomiting or trouble chewing/swallowing. Cashier And Salesperson provided snack list but pt not interested in adding snacks at this time. Her only concern was that she is worried that she will eat too much which will cause too much pressure in her stomach. Cashier And Salesperson assured pt and suggested eating smaller but [...] Last Bowel Movement: 05/10/23 Guerda Del Valle Laundry Equipment Operator * Vinod Juárez PA - 05/16/2023 [...] 0600 and on the weekends please page [phone]. * Michael Jefefrs MD - 05/16/2023 8:11 AM EDT Images from the original note were not included. Hypertension-Nephrology Inpatient Follow-up Purnima Thacker [id number] 1955 ID: 67 y.o. old female seen [...] IRONSAT 12 (L) 05/16/2023 SFOLATE >20.0 07/03/2022 [id number] 07/03/2022 Lab Results Component Value Date [...] Dr. Ayoub. Please contact me at phone: [phone] or pager: [phone] with any questions. Michael Jeffers MD Nephrology [...] -Nephrology consulted, labs and renal US ordered -[place] removed, ambulated around the unit -bilateral pleural [...] 0600 and on the weekends please page [phone]. * Hortencia Cody MD - 05/15/2023 2:07 [...] not included. Hypertension-Nephrology Inpatient Follow-up Purnima Thacker [id number] 1955 ID: 67 y.o. old female seen [...] HGB 7.8 (L) 05/13/2023 SFOLATE >20.0 07/03/2022 [id number] 07/03/2022 Lab Results Component Value Date [...] Dr. Ayoub. Please contact me at phone: [phone] or pager: [phone] with any questions. Michael Jeffers MD Nephrology [...] outlined inthis evaluation. HAVEN BA, PT Pager: [phone] Physical Therapy Inpatient Rehabilitation Department Time IN / OUT: 3150-5865 Total time: Total Minutes, Physical Therapy: 30 [...] 0600 and on the weekends please page [phone]. * Antelmo Sharma MD - 05/14/2023 7:56 AM EDT Images from the original note were not included. [place] [id number] STRUCTURAL HEART DISEASE CONSULTATION NOTE PRIMARY CARE PROVIDER: Magdalena Acosta MD REFERRING PROVIDER: Mario Alberto H [place] REASON FOR CONSULTATION: Bioprosthetic aortic valve stenosis [...] stenosis. She is now status post TAVR Qskdg-im-Elyad with a 23 mm Lai 3 THV 05/12/[address] Sharma. Preliminary findings: Successful right transfemoral TAVR Kpucq-lq-Ikffw with a 23 mm Lai 3 THV. [...] by [facility] 11/09/2022 Heart failure with reduced [...] stenosis. She is now status post TAVR Rkxzm-vv-Klxwt with a 23 mm Lai 3 THV [...] Suyapa ANURAG Kaplan Structural Heart Team Pager [phone] Team Office Please see addendum by Dr. [...] exposure. Nephrology consultationtoday. Antelmo Sharma MD Pager [phone] * Antelmo aCrdenas RN - 05/14/2023 5:18 AM EDT Pt AOx4, complaining of mild/moderate generalized pain (states her Meloxicam is effective at home) currently refusing prn oxycodone. NAEON, hemodynamically stable on Milrinone, Maps >65, ST in wzm150's down to NSR with frequent multifocal PVC's. [...] from the original note were not included. [place] [address] STRUCTURAL HEART DISEASE PROGRESS NOTE PRIMARY CARE [...] stenosis. She is now status post TAVR Sxrjt-jt-Nlnjl with a 23 mm Lai 3 THV 05/12/[address] Sharma. Preliminary findings: Successful right transfemoral TAVR Liguw-kv-Lfpht with a 23 mm Lai 3 THV. [...] Interval Events: - Transferred to [facility] post- TAVR for pressor/inotropic support (Levo, vaso, [...] by [facility] 11/09/2022 Heart failure with reduced [...] stenosis. She is now status post TAVR Frrik-nz-Nvdhv with a 23 mm Lai 3 THV [...] Brody Kaplan APRN Structural Heart Team Pager [phone] Team Office Please see addendum by Dr. [...] DAPT moving forward. Antelmo Sharma MD Pager [phone] * Bonita Miguel PA - 05/13/2023 8:30 AM EDT Cardiac Surgery Progress Note Purnima Thacker is a 67 y.o. 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 PMH of s/p tissue AVR (2017), mixed connective tissue disease HTN, HLD, NICOLAS, diverticulosis, rosacea, essential tremor, and depression. 24h Events: From lab support tech for above procedure Extubated at ~1600 to [...] soft b/l, no evidence of hematoma. Tubes/Lines/Drains: Crosslake, RIJ, A-line, Art, PIV Assessment/Plan: 67 y.o. [...] 0600 and on the weekends please page [phone]. * Onelia Schwartz MD - 05/12/2023 1:44 [...] by [facility] 11/09/2022 Heart failure with reduced [...] FiO2 weaned to 40%. 1105: ABG 7.34/42/73/22 [id number]: SBT performed and passed on these settings [...] PCP: Magdalena Acosta MD PCP phone number: [phone] Date of Admission: 05/08/2023 ( Hospital Day [...] 1447 PHART -- 7.34* 7.34* -- -- [id number] -- 30* 30* -- -- PO2ART -- 72* 81* -- -- SLA7NOW -- 16.0* 15.7* -- -- LACTATEVEN 2.4* 2.7* 2.7* 4.8* 2.9* VBG (Venous Blood Gas) Recent Labs 05/12/23 0700 05/12/23 0318 05/12/2310505/11/23193905/11/23 1447 LACTATEVEN 2.4* 2.7* 2.7* 4.8* 2.9* Mixed Venous Sat Recent Labs 05/12/23 0508 05/12/23 0321 05/12/23 0114 05/12/23 0030 [id number] 30.7 32.7 37.3 25.1 Objective: Vitals Last [...] have questions please contact the health pharmacy customer care specialist that requested your imaging first. Cardiac [...] have questions please contact the health pharmacy customer care specialist that requested your imaging first. Angiogram Abdomen [...] have questions please contact the health pharmacy customer care specialist that requested your imaging [...] have questions please contact the health pharmacy customer care specialist that requested your imaging first. Chest One View (Exam End: 05/12/2023 1:00 AM) Impression * Right IJV approach pulmonary arterial catheter terminates in the right interlobar pulmonary artery near its bifurcation. Please retract 5 to 7 cm. * Increased pulmonary vascular congestion, interstitial/alveolar edema, and medium-sized bilateral pleural effusions. IZe, discussed the above findings with Dr. Klaudia Ried on 05/12/2023 at 3:15 AM and verified understanding. Thank you for letting us participate in the care of this patient. If you are a health care provider and have any questions regarding this report, please contact the number below. For patients who have questions please contact the health pharmacy customer care specialist that requested your imaging [...] and inotrope. She is planned for a rmbce-ko-unhqd TAVR this morning, which should hopefully improve [...] Cardiovascular Medicine [facility] Assembler Installer Generalhand carver [facility] * Noreen Deutsch RN - 05/12/2023 [...] by [facility] 11/09/2022 Heart failure with reduced [...] 05/11/2023 4:11 PM EDT Reported off to BOOKSTORE CLERK and pt transferred over in the bed for higher level of care. * Antelmo Sharma MD - 05/11/2023 9:45 AM EDT Images from the original note were not included. [place] [id number] STRUCTURAL HEART DISEASE CONSULTATION NOTE PRIMARY CARE [...] who had been referred for possible TAVR ovrtm-jp-sbxrm evaluation. 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 [...] by [facility] 11/09/2022 Heart failure with reduced [...] hour(s)) Lactate, whole blood, send to lab ([facility]) Result Value Ref Range Lactate WB 3.1 (H) 0.5 - 2.2 mmol/L Heparin (unfractionated) Level Result Value Ref Range Heparin UFH Level 0.46 IU/mL Lactate, whole blood, send to lab ([facility]) Result Value Ref Range Lactate WB 1.8 [...] leads Confirmed by MD Harshil, Enrique Bell ([id number]) on 05/10/2023 8:11:46 AM Cardiac Cath 11/09/2022 [...] 05/12/2023. Brody KaplanANURAG Structural Heart Disease Pager [phone] Please see addendum by Dr. Sharma for [...] signed and dated. Antelmo Sharma MD Pager [phone] * Harini Lance MD - 05/11/2023 6:06 AM EDT Images from the original note were not included. Cardiology Progress Note Patient info: Name: Purnima Thacker : 1955 PCP: Magdalena Acosta MD PCP phone number: [phone] Date of Admission: 05/08/2023 ( Hospital Day [...] have questions please contact the health pharmacy customer care specialist that requested your imaging first. : [...] by [facility] 11/09/2022 Hyperlipidemia, unspecified NICOLAS (obstructive [...] PCP: Magdalena Acosta MD PCP phone number: [phone] Date of Admission: 05/08/2023 ( Hospital Day [...] by [facility] 11/09/2022 Hyperlipidemia, unspecified NICOLAS (obstructive [...] PCP: Magdalena Acosta MD PCP phone number: [phone] Date of Admission: 05/08/2023 ( Hospital Day [...] Gas) No results found for: PHART, PO2ART, QWT9BOC, UBL9QGZ Microbiology: Microbiology Results (Last 30 days) No [...] PPx: Diet: Daily Healthy Menu Choices/Cardiac diet ([facility]) Lines: Peripheral IV Line - [...] by [facility] 11/09/2022 Hyperlipidemia, unspecified NICOLAS (obstructive [...] N/A 11/09/2022 CORONARY ANGIOGRAPHY; W [facility],POSSIBLE PCI (WRVU 5.6) performed by Mario Alberto Escobedo MD at [facility] PRO AORTOPLAS FOR SUPRAVALV STEN N/A 09/21/2016 @AORTOPLASTY FOR SUPRAVALVULAR STENOSIS (WRVU 29.33) performed by Alirio Hudson MD at [facility] MAIN OR PRO REPLACEMENT PROSTHETIC AORTIC VALVE OPEN W CARDIOPULMONARY BYPASS HOMOGRF/STENT N/A 09/21/2016 @REPLACE AORTIC VALVE, OPEN, W\CPB, W\PROSTHETIC VALVE (WRVU 41.32) performed by Alirio Hudson MD at [facility] Social History and Habits: [...] hr Take 180 mg by mouth daily. [employer] Corporation[employer] Verio test strips Strip USE DAILY OneTouch [...] performed by Mario Alberto Escobedo MD at [facility] PRO AORTOPLAS FOR SUPRAVALV STEN N/A 09/21/2016 @AORTOPLASTY FOR SUPRAVALVULAR STENOSIS (WRVU 29.33) performed by Alirio Hudson MD at [facility] MA[facility] OR PRO REPLACEMENT PROSTHETIC AORTIC VALVE OPEN W CARDIOPULMONARY BYPASS HOMOGRF/STENT N/A 09/21/2016 @REPLACE AORTIC VALVE, OPEN, W\CPB, W\PROSTHETIC VALVE (WRVU 41.32) performed by Alirio Hudson MD at [facility] Social History and Habits: [...] Hgb 10.5 CMP - Cr 1.1 BNP 67210 HsTrop 1358 Lactate 1.6 D-dimer 1183 Interval [...] Rudolphluiz Reid MD Internal Medicine PGY-1 Pager [phone], M1-S1 Service Associated attestation - Juan Luis Gonzalez MD - 05/08/2023 10:00 PM EDT Cardiology Attending Addendum Active Hospital Problems Diagnosis Symptomatic severe aortic stenosis with low ejection fraction Heart failure with reduced ejection fraction due to heart valve disease Mild coronary artery disease by [facility] 11/09/2022 Hyperlipidemia, unspecified History of aortic valve replacement Resolved Hospital Problems No resolved problems to display. I have interviewed and examined the patient, reviewed the available data, and have discussed my findings, assessment and plan with the patient and the team on admission to S2 service (from [facility] service) today. I agree with Dr. Reid's [...] PCP: Magdalena Acosta MD PCP phone number: [phone] Date of Admission: 05/08/2023 ( Hospital Day [...] Hgb 10.5 CMP - Cr 1.1 BNP 39550 HsTrop 1358 Lactate 1.6 D-dimer 1183 Vasoactive [...] #Routine Diet: Daily Healthy Menu Choices/Cardiac diet ([facility]) DVT Prophylaxis: heparin gtt GI [...] to the planned procedure. Hand Hygiene: The tin can laborer did perform hand hygiene prior to arterial [...] Successful arterial line placement. Crispin Timmons MD Full Stack Engineer Associated attestation - Onelia Schwartz MD [...] (flow was non-pulsatile) and appearance of blood. Crosslake-Marily catheter was placed and locked at 55 [...] information for follow-up [facility], [place] [address] [place] [address] Cardiac Rehab, [address] [place] [address] [facility], [place] [address] [place] [address] Transportation: family or friend will provide *Brother [...] Type: *No Product type* / Secondary Insurance: [employer] [place] Prescription Coverage: Yes This plan was formulated with input from patient, family (please identify family/friend involved ifapplicable) and team. All are in agreement with plan. Aliza Martino MSN-Ed, RN ACM hand tool lapper Office of Care Management Pager #[phone] * Plan of Care - Favian Mckeon [...] Chaudhary RN - 05/21/2023 4:46 PM EDTSummary: [facility] referral OFFICE OF CARE MANAGEMENT [...] Type: *No Product type* / Secondary Insurance: [employer] [place] Last Physical Therapy Recommendation: (Home with assist [...] geographic area. They have requested referrals to: [facility] [address] [place] [address] [facility] Note routed to a Greens Keeper who will communicate referrals to facilities and provide any required information. Transportation: family or friend will provide *Brother Raymond on Tuesday 05/22 at 1000 Barriers to discharge: Does not have home 22/02 assist available until tomorrow Tuesday 05/22 Plan going forward: Discharge home into the 22/02 home care of brother Raymond with [facility] and [facility] PT/OT services on Tuesday 05/22 [...] All Staff: Staff Role Juanita Almaguer Equipment Associate Laure Ricks PA Physician Test Desk Operator Magdalena Rodriguez sped teacher Nurse Consuelo Espinoza sped teacher Nurse Post-operative diagnosis/Indication: Right pleural effusion [...] Type: *No Product type* / Secondary Insurance: [email or web address] [facility] [place] Last Physical Therapy Recommendation: correction [...] to: discuss discharge planning needs. provide the [facility], Office of Care Management letter from the Membership Sales Advisor pertaining to rehab referrals. provide a letter [...] referrals to: [facility] [address] [place] [address] [facility] ([facility]) [address] [place] [address] (Accepts pts only after exhausting all other local SNF options) [facility] ([facility]) ([facility]) [address] [place] [address] PHONE: [phone] FAX: [phone] [facility] [place] ([facility]) ([facility]) [address] [place] [address] PHONE: [phone] FAX: [phone] Note routed to a Greens Keeper who will communicate referrals to facilities [...] Crenshaw RN - 05/17/2023 10:25 AM EDT [facility] Purnima Thacker was [...] from the original note were not included. [facility] NEPHROLOGY/HYPERTENSION CONSULT NOTE PATIENT: Purnima Thacker [...] in her course. She ultimately underwent a iyauo-ca-pguom procedure on and tolerated it well (see [...] 1423 05/12/23 1105 PHART 7.39 7.37 7.34* BJH1PBE 33* 36 42 PO2ART 101 102 73* USH2FLA 19.5* 20.4 22.1 LACTATEVEN 1.5 1.8 2.8* IRK0GCH 40 40 40 PFRATIOART2 252 255 182 VBG (Venous Blood Gas) Recent Labs 05/12/23 1557 05/12/23 1423 05/12/23 1105 LACTATEVEN 1.5 1.8 2.8* Mixed Venous Sat Recent Labs 05/12/23 1425 05/12/23 0508 05/12/23 0321 [id number] 59.9 30.7 32.7 LFT's: Recent Labs 05/14/23 0110 05/13/23 0115 05/12/23 0600 BILITOT 0.4 0.5 0.9 BILIDIR -- 0.3 -- ALBUMIN 3.6 3.0* 3.5 ALKPHOS 86 85 100 ALT 437* 903* 1,174* AST 319* 792* 1,435* No results found for: UPROTCREAT No results found for: TPROTEINPEP, ALBELECT No results found for: MICROALBUR, EMGE49ZCI No results found for: HA1C Lab Results Component Value Date CALCIUM 8.5 05/14/2023 PHOS 4.7 (H) 05/08/2023 No results found for: 25OHVITD MICROBIOLOGY: ProcedureComponentValueUnitsDate/TimeUrine culture [[id number]]Collected: 05/11/231921Lab Status: Final resultSpecimen: Clean Catch UrineUpdated: [...] consulted for assessment if this patient needs WINDOWS SECURITY ANALYST. Atthis time, we can likely hold off on WINDOWS SECURITY ANALYST. Her volume status appears sufficient and her metabolic kanwal angements with mild acidosis is not too profound. Patient does not have significant uremic symptoms. We can hold off for today, but the patient is a high risk candidate for needing WINDOWS SECURITY ANALYST in future daysespecially if her Cr curve trends the direction it is for the next several days. S/p Eklhz-tb-Ivjtb TF TAVR: Management per cardiology. On milrinone gtt. PLAN: - Please obtain following diagnostics: renal US, urinalysis, urine prot/Cr ratio, urine albumin/Cr ratio, CK, uric acid, serum osmol, daily VBGs - No acute indications for WINDOWS SECURITY ANALYST/dialysis. We will keep close eye on Cr trend, volume status, and metabolics to ensure patient still does not need WINDOWS SECURITY ANALYST as she ensues intrinsic renal recovery [...] M.H.A., M.A. PGY-V Nephrology-Hypertension Fellow Page # [phone] [facility] [address] 2nd floor, Crna [address] [place] [address] * Care Management - Mario Alberto Olmos [...] Returned to [facility] at 0945. Was intubated in the lab support tech due to agitation. Maintained bedrest for 5 [...] Operative Note Patient Name: Purnima Thacker : [id number] MR#: [id number] Case Date: 05/12/2023 Surgeon: Surgeon(s) and Role: [...] procedure Note: Patient Name: Purnima Thacker : [id number] MR#: [id number] Case Date: 05/12/2023 Operators Surgeon: Surgeon(s) and [...] main with 4.0 x 30 mm Resolute Navajo Drug Eluting Stent Perclose x1 + Angio-seal 8 Fr x1, RFA Manual pressure, LFA Manual pressure, LFV Endotracheal intubation (performed by cardiac anesthesia) Preliminary findings: Successful right transfemoral TAVR Ekinv-cu-Cvtfy with a 23 mm Lai 3 THV. [...] MD, M.Sc. Structural Heart Disease Fellow Pager :[phone] Antelmo Sharma MD Pager [phone] * Op Note - Alirio Hudson MD - 05/12/2023 7:37 AM EDT Preop Diagnosis: Severe aortic stenosis, symptomatic. Postop Diagnosis: Same. Procedure: Transfemoral TAVR procedure with 23mm valve. Surgeon: Alirio Hudson M.D. Dairy Supplies Sales Representative: Danny CULP Procedure: The patient was taken to the lab support tech. The patient had monitored anesthesia care. 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 [place] [id number] STRUCTURAL HEART DISEASE CONSULTATION NOTE PRIMARY CARE [...] who had been referred for possible TAVR oksjk-kc-wcvxl evaluation. 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 [...] by [facility] 11/09/2022 Heart failure with reduced [...] hour(s)) Lactate, whole blood, send to lab ([facility]) Result Value Ref Range Lactate WB 1.8 [...] leads Confirmed by MD Harshil, Enrique Bell ([id number]) on 05/10/2023 8:11:46 AM Assessment and Plan: [...] Antelmo Sharma MD Structural Heart Disease Pager [phone] * Plan of Care - Sarahi Nice RN - 05/10/2023 3:55 AM EDTSumcaydeny: VALDO Note and Care Plan Sarahi Nice RN assumed care of pt at time of their arrival to room 362 from [facility]. Pt voices shortness of breath at time [...] receiving care in [place] must abide by [place] law. The hierarchy [...] (i) The agent with financial power of work from home or a conservator appointed in accordance with [...] DME: none Home Address confirmed as: [address] [place] [id number] Social & Family Supports: All names listed [...] Type: *No Product type* / Secondary Insurance: [email or web address] [facility] [place] ONLY if patient has Medicare A&B - Does this patient have secondary insurance?: Yes ; Prescription Coverage: Yes Preferred Pharmacy: updated to [facility] in [facility] Status: Patient is a : No Primary Care Provider confirmed: Magdalena Acosta MD [phone] Patient/Caregiver Goals of Treatment: Potential Needs for [...] of a 2 story home with 2 [facility]. Patient is independent with ADL's [...] of care planning. Alie Bradshaw RN, CM Pager-[phone] * Plan of Care - Emily Lucero [...] PM EST Hospital Encounter [facility] [phone] Markel Borjas MD [facility] [address] HEMATOLOGY [place] [address] 06/05/2024 2:00 PM EST - 06/05/2024 3:00 PM EST Surgery Outpatient [place] [address] Markel Borjas MD [facility] [address] HEMATOLOGY [place] [address] (OSC MSURG) BONE MARROW BIOPSY AND ASPIRATION; DIAGNOSTIC (WRVU 1.44) 06/23/2024 2:00 PM EST Office Visit Hematology [place] [phone] Markel Borjas MD [facility] [address] HEMATOLOGY [place] [address] 03/01/2025 4:15 PM EDT Office Visit Dermatology at [place] [address] [place] [phone] Marek Bonilla MD [address], [place] [address] Scheduled Procedures Name Priority Associated Diagnoses Date/Ti [...] Heart Cath W/Inj L Ventriculography, Img S&I ([id number]) 05/12/2023 7:37 AM EDT Aortic valve stenosis, [...] AM EST Narrative 07/08/2023 12:26 PM EST [address] [place] [address] ? Echocardiogram Report Name: PURNIMA THACKER ?Study Date: 07/08/2023 10:31 AMBP: 118/60 mmHg ? Patient Location: : 1955 ? Height: 155 cm ? Account: [id number] Age: 67 yrs ? Weight: 74 kg [...] no significant change (post-procedure). Procedure Limited - 44238. Doppler - 90931. Color Doppler - 29874. Satisfactory quality. This study is limited because [...] Note Lee Kincaid MD - 07/08/2023 [address] [place] [address] Echocardiogram Report Name: PURNIMA THACKER Study Date: 0:31 AMBP: 118/60 mmHg Patient Location: : 1955 Height: 155 cm Account: [id number] Age: 67 yrs Weight: 74 kg Gender: [...] is nosignificant change (post-procedure). Procedure Limited - 76084. Doppler - 46873. Color Doppler - 13520. Satisfactoryquality. This study is limited because of [...] MD CHEMISTRY ORDERABLE S [facility] [place] [address] * (ABNORMAL) Basic Metabolic Panel (non-fasting) (05/22/2023 3:57 AM EDT) Glucose 88 65 - 199 mg/dL [facility] [...] Carbon Dioxide 23 22 - 31 mmol/L [facility] Anion Gap 11 5 - 15 mmol/L [facility] Calcium 8.6 8.5 - 10.5 mg/dL [facility] Est Glomerular Filtration Rate 95 >=60 mL/min/1. 73 m?? [facility] [...] Resulting Agency Comment Spec In Lab Mara Broadview WAREHOUSE CHECKER CHEMISTRY ORDERABL ES [facility] [place] [address] * (ABNORMAL) Basic Metabolic Panel (non-fasting) (05/21/2023 [...] Agency Comment Spec In Lab Mara Maggie WAREHOUSE CHECKER CHEMISTRY ORDERABL ES Performing Organization Address City/[facility] Co de Phone Number [facility] [place] [address] * Lavender Tube HOLD (05/20/2023 2:52 AM EDT) Lavender Hold Sample in lab. [facility] Blood Venous Draw / Unknown 05/20/2023 2:52 AM EDT 05/20/2023 3:04 AM EDT [facility] WAREHOUSE CHECKER HEMATOLOGY ORDERAB LES Performing Organization Address City/[facility]/ZIP Co de Phone Number [facility] [place] [address] * (ABNORMAL) Basic Metabolic Panel (non-fasting) (05/20/2023 [...] Agency Comment Spec In Lab Mara Maggie WAREHOUSE CHECKER CHEMISTRY ORDERABL ES [facility] [place] [address] * (ABNORMAL) Potassium (05/20/2023 2:52 AM EDT) Potassium 3.4(L) 3.5 - 5.0 mmol/L [facility] [...] Agency Comment Spec In Lab Mara Serrano WAREHOUSE CHECKER CHEMISTRY ORDERABL ES [facility] [place] [address] * XR Chest PA & Lateral (Generic) [...] have questions please contact the health pharmacy customer care specialist that requested your imaging [...] who have questions please contactthe health pharmacy customer care specialist that requested your imaging first. Alirio Hudson MD IMG DX ORDERABLES * (ABNORMAL) Basic Metabolic Panel (non-fasting) (05/19/2023 5:49 AM EDT) Glucose 93 65 - 199 mg/dL [facility] Comment:Diabetes: >=200 mg/d L plus symptoms Blood Urea Nitrogen 45(H) 8 - 18 mg/dL [facility] Creatinine 1.02 0.70 - 1.20 mg/dL [facility] Sodium 138 135 - 145 [...] 31 mmol/L [facility] Anion Gap 10 5 - 15 mmol/L [facility] [...] Lab Mara Serrano APRN CHEMISTRY ORDERABL ES [facility] [place] [address] * IR Chest Tube Placement Right (05/18/2023 [...] Kristopher Salgado MD 05/18/2023 Alirio Hudson MD [facility] IR ORDERABLES * (ABNORMAL) Basic Metabolic Panel (non-fasting) (05/18/2023 2:54 AM EDT) Glucose 95 65 - 199 mg/dL [facility] Comment:Diabetes: >=200 mg/d L plus symptoms Blood Urea Nitrogen 71(H) 8 - 18 mg/dL [facility] Comment:result rechecked-[facility] Creatinine 1.64(H) 0.70 - 1.20 mg/dL [facility] Comment:result rechecked-[facility] Sodium 137 135 - 145 mmol/L [facility] [...] Lab Mara Serrano APRN CHEMISTRY ORDERABL ES [facility] [place] [address] * XR Chest PA & Lateral (Generic) [...] have questions please contact the health pharmacy customer care specialist that requested your imaging [...] who have questions please contactthe health pharmacy customer care specialist that requested your imaging first. Alirio Hudson MD IMG DX ORDERABLES * (ABNORMAL) Comprehensive metabolic panel (non-fasting) (05/17/2023 4:35 AM EDT) Pathologist [facility] Glucose 89 65 - 199 mg/dL [facility] Comment:Diabetes: >=200 mg/d L plus symptoms Blood Urea Nitrogen 97(H) 8 - 18 mg/dL [facility] Creatinine 2.97(H) 0.70 - 1.20 mg/dL [facility] Comment:result rechecked-JS Sodium 135 135 - 145 mmol/L [facility] [...] Aspartate Aminotransferase 58(H) 0 - 30 unit/L [facility] Alanine Aminotransferase 66(H) 0 [...] Address [facility] Co de Phone Number [facility] [place] [address] * Potassium (05/16/2023 11:15 PM EDT) Potassium [...] Address [facility] Co de Phone Number [facility] [place] [address] * Magnesium (05/16/2023 5:22 PM EDT) Magnesium 0.96 0.69 - 1.07 mmol/L [facility] Blood 05/16/2023 5:22 PM EDT 05/16/2023 5:27 PM EDT Narrative Resulting Agency Comment Spec In Lab Alirio Hudson MD CHEMISTRY ORDERABLE S Performing Organization Address City/State/[facility] Co de Phone Number [facility] [place] [address] * (ABNORMAL) Basic Metabolic Panel (non-fasting) (05/16/2023 5:22 PM EDT) Glucose 106 65 - 199 mg/dL [facility] Comment:Diabetes: >=200 mg/d L plus symptoms Blood Urea Nitrogen 103(H) 8 - 18 mg/dL [facility] Creatinine 3.91(H) 0.70 - 1.20 [...] MD CHEMISTRY ORDERABLE S [facility] [place] [address] * (ABNORMAL) Potassium (05/16/2023 11:43 AM EDT) Pathologist [facility] Chronically Ill Potassium 3.3(L) 3.5 - 5.0 mmol/L [facility] [...] Organization Address [facility] Co de Phone Number [facility] [place] [address] * (ABNORMAL) Ferritin (05/16/2023 4:41 AM EDT) [facility] Ferritin 1,813(H) 30 - 400 ng/mL [facility] Comment: Pediatric reference ranges not [place] [facility] interpret with caution. Reference ranges for females greater than 50 years of age approach values for men, i.e., 30-400 ng/mL. Blood 05/16/2023 4:41 AM EDT 05/16/2023 4:54 AM EDT Narrative Resulting Agency Comment Spec In Lab Kristopher Ayoub MD CHEMISTRY ORDERABLES Performing Organization Address [facility] Co de Phone Number [facility] [place] [address] * (ABNORMAL) PTH (05/16/2023 4:41 AM EDT) [facility] Parathyroid Hormone 120(H) 15 - 65 pg/mL [facility] Blood 05/16/2023 4:41 AM EDT 05/16/2023 4:54 AM EDT Narrative Resulting Agency Comment Spec In Lab Kristopher Ayoub MD CHEMISTRY ORDERABLES [facility] [place] [address] * Vitamin D, 25-Hydroxy (05/16/2023 4:41 AM EDT) Vitamin D Total 25 OH 33 21 - 100 ng/mL [facility] Vit D Interp Sufficient [facility] Blood 05/16/2023 4:41 AM EDT 05/16/2023 4:54 AM EDT Narrative Resulting Agency Comment Spec In Lab Kristopher Ayoub MD CHEMISTRY ORDERABLES Performing Organization Address [facility] Co de Phone Number [facility] [place] [address] * (ABNORMAL) Blood Gas Venous ([facility]) (05/16/2023 4:22 AM EDT) pH, Venous 7.41 7.32 - 7.42 [facility] PCO2, Venous 32(L) 41 - 51 mmHg [facility] PO2, Venous 73(H) 25 - 40 mmHg [facility] Bicarbonate, Venous 19.6 mmol/L [facility] Base Excess, Venous -5.1 mmol/L [facility] Hgb Blood Gas 9.7(L) 11.7 - 15.5 g/dL [facility] Oxyhemoglobin, Venous 92.8 % [facility] Carboxyhemoglob in, Venous 0.1 % [facility] Comment: Nonsmokers: 0.5-1.5% COHB Smokers: Variable, but usually less than 10% Toxic: 20-30% COHB Lethal: Greater than 60% COHB Methemoglobin, Venous 0.3 <=1.5 % [facility] Na Whole Blood 130(L) 135 - 145 mmol/L [facility] K Whole Blood 3.7 3.5 - 5.0 mmol/L [facility] Comment: Please note: Patients with WBC >100,000 may have falsely elevated Potassium levels. Contact the Clinical Chemistry Laboratory if there are any questions. ICa Whole Blood 1.15 1.15 - 1.33 mmol/L [facility] Comment: Note: ??Total bilirubin higher than 20 mg/dL may lead to falsely low ionized calcium. CL Whole Blood 95(L) 98 - 107 mmol/L [facility] Gluc Whole Bld 82 65 - 199 mg/dL [facility] Comment:Diabetes: >=200 mg/d L plus symptoms Lactate WB 1.1 0.5 - 2.2 mmol/L [facility] Blood Gas Source Venous [facility] Blood Venous Draw / Unknown 05/16/2023 4:22 AM EDT 05/16/2023 4:31 AM EDT Narrative Resulting Agency Comment Spec In Lab Bonita TOBAR CHEMISTRY ORDERABLES [facility] [place] [address] * (ABNORMAL) Differential, Automated (05/16/2023 4:20 AM EDT) Neutrophil % 84.1 % [facility] Neutrophil Absolute 6.22(H) 1.70 - 6.10 x10(3)/mc L [facility] Lymph % 5.8 % [facility] Lymphocytes Abs 0.4(L) 0.9 - 3.2 x10(3)/mc L [facility] Monocyte % 8.8 % [facility] Monocyte Abs 0.6 0.3 - 0.9 x10(3)/mc L [facility] Eos % 0.4 % [facility] Eosinophils Abs 0.0 0.0 - 0.4 x10(3)/mc L [facility] Basophil % 0.0 % [facility] Baso Absolute 0.0 0.0 - 0.1 [...] MD HEMATOLOGY ORDER JODIE Performing Organization Address City/[facility]/ZIP Co de Phone Number [facility] [place] [address] * (ABNORMAL) Hemogram (05/16/2023 4:20 AM EDT) White Blood Cell 7.4 4.0 - 9.5 x10(3)/ L [facility] Red Blood Cell 2.40(L) 4.00 - 5.21 x10(6)/mc L [facility] Hemoglobin 7.8(L) 11.7 - 15.5 g/dL [facility] Hematocrit 22.5(L) 35.7 - 45.8 % [facility] Mean Cell Volume 93.8 82.6 - 94.4 fL [facility] Mean Cell Hemoglobin 32.5(H) 27.1 [...] Platelet Volume 11.3 7.6 - 12.9 fL [facility] NRBC% auto 0.7 % [facility] NRBC Absolute 0.050(H) 0.000 - 0.000 x10(3)/mc L [facility] Blood 05/16/2023 4:20 AM EDT 05/16/2023 4:29 AM EDT Narrative Resulting Agency Comment Spec In Lab James Agustin MD HEMATOLOGY ORDER JODIE Performing Organization Address City/[facility]/ZIP Co de Phone Number [facility] [place] [address] * (ABNORMAL) Basic Metabolic Panel (non-fasting) (05/16/2023 [...] MD CHEMISTRY ORDERABLE S [facility] [place] [address] * (ABNORMAL) Iron and TIBC (05/16/2023 4:20 AM EDT) Iron 31 30 - 150 mcg/dL [facility] TIBC 259 250 - 450 mcg/dL [facility] Iron Saturation 12(L) 20 - 50 % [facility] Blood 05/16/2023 4:20 AM EDT 05/16/2023 4:29 AM EDT Narrative Resulting Agency Comment Spec In Lab Kristopher Ayoub MD CHEMISTRY ORDERABLES [facility] [address] [facility] [address] [place] [address] * (ABNORMAL) Basic Metabolic Panel (non-fasting) (05/15/2023 12:50 AM EDT) Glucose 101 65 - 199 mg/dL [facility] Comment:Diabetes: >=200 mg/d L plus symptoms Blood Urea Nitrogen 109(H) 8 - 18 mg/dL [facility] Creatinine 5.62(H) 0.70 - 1.20 mg/dL [facility] Comment:result rechecked-KS Sodium 131(L) 135 - 145 mmol/L [facility] Comment:result rechecked-KS Potassium 3.7 3.5 [...] Carbon Dioxide 18(L) 22 - 31 mmol/L [facility] Comment:result rechecked-KS Anion Gap 21(H) 5 - 15 mmol/L [facility] Calcium 8.9 8.5 - 10.5 mg/dL [facility] Est Glomerular Filtration Rate 8(L) >=60 mL/min/1. 73 m?? [facility] Comment: This patient's estimated [...] [facility] Co de Phone Number [facility] [place] [address] * (ABNORMAL) Hemogram (05/15/2023 12:50 AM EDT) White Blood Cell 9.1 4.0 - 9.5 x10(3)/mc L [facility] Red Blood Cell 2.19(L) 4.00 - 5.21 x10(6)/mc L [facility] Hemoglobin 7.2(L) 11.7 - 15.5 g/dL [facility] Hematocrit 20.6(L) 35.7 - 45.8 % [facility] Mean Cell Volume 94.1 82.6 - 94.4 fL [facility] [...] Platelet Volume 10.4 7.6 - 12.9 fL [facility] NRBC% auto 2.1 % [facility] NRBC Absolute 0.190(H) 0.000 - 0.000 x10(3)/mc L [facility] Blood 05/15/2023 12:5 0 AM EDT 05/15/2023 12:52 AM EDT Narrative Resulting Agency Comment Spec In Lab Alirio Hudson MD HEMATOLOGY ORDERABL ES [facility] [place] [place] [address] * (ABNORMAL) BLOOD GAS 2 VENOUS (05/15/2023 [...] [facility] Oxyhemoglobin, Venous 58.1 % [facility] Carboxyhemoglob in, Venous 0.3 % [facility] Comment: Nonsmokers: 0.5-1.5% COHB Smokers: Variable, but usually less than 10% Toxic: 20-30% COHB Lethal: Greater than 60% COHB Methemoglobin, Venous 0.6 <=1.5 % [facility] Na Whole Blood 136 135 - 145 mmol/L [facility] [...] Whole Blood 95(L) 98 - 107 mmol/L [facility] Gluc Whole Bld 101 65 - 199 mg/dL [facility] Comment:Diabetes: >=200 mg/d L plus symptoms Lactate WB 1.3 0.5 - 2.2 mmol/L [facility] Flow, Mike 1.0 LPM [facility] Blood Gas Source Venous [facility] Blood 05/15/2023 12:4 9 AM EDT 05/15/2023 12:49 AM EDT Alirio Hudson MD POINT OF CARE TEST ORDERABLES [facility] [address] * US Retroperitoneal Complete (05/14/2023 3:53 PM [...] who have questions, please contact the health pharmacy customer care specialist that requested your imaging first. ? Hayden Robledo, Staff Physician Electronically Signed Final Report ?? 05/14/2023 04:39 pm Narrative 05/14/2023 4:39 PM EDT Renal ? (Signed Final 05/14/2023 04:39 pm) PATIENT INFO: ID #: ? [id number] ?: ??[birth year] (67 yrs)(F) Name: ? PURNIMA THACKER ?Visit Date: 05/14/2023 03:44 pm PERFORMED BY: Attending: ?Meena CULP, Hayden Stafford Resident: ? Nell CULP, Anand August Performed By: ? Omer RD, Consuelo Referred By: ?ALIRIO Powell BECCA Location: ? [place] SERVICE(S) PROVIDED: URETRO - Retroperitoneal Complete - [id number] ? [id number] INDICATIONS: EVANS COMPARISON: CT: Abdomen/Pelvis 05/11/23 RIGHT [...] 05/14/2023 04:39 pm) PATIENT INFO: ID #: [id number] : 55 (67 yrs)(F) Name: PURNIMA THACKER Visit Date: 05/14/2023 03:44 pm PERFORMED BY: Attending: Hayden Robledo MD Resident: Anand Camejo MD Performed By: Consuelo Tello RDMS Referred By: ALIRIO HUDSON Location: [place] SERVICE(S) PROVIDED: URETRO - Retroperitoneal Complete - [id number] INDICATIONS: EVANS COMPARISON: CT: Abdomen/Pelvis 05/11/23 RIGHT [...] who have questions, please contact the health pharmacy customer care specialist that requested your imaging [...] MD CHEMISTRY ORDERABLE S [facility] [place] [address] * (ABNORMAL) Uric acid (05/14/2023 3:17 PM EDT) Uric Acid 14.9(H) 2.5 - 6.5 mg/dL [facility] Blood 05/14/2023 3:17 PM EDT 05/14/2023 3:31 PM EDT Narrative Resulting Agency Comment Spec In Lab Alirio Hudson MD CHEMISTRY ORDERABLE S Performing Organization Address [facility] Co de Phone Number [facility] [place] [address] * (ABNORMAL) Osmolality (05/14/2023 3:17 PM EDT) Pathologist [facility] Osmolality 311(H) 275 - 295 mOsm/kg [facility] Blood 05/14/2023 3:17 PM EDT 05/14/2023 3:31 PM EDT Narrative Resulting Agency Comment Spec In Lab Alirio Hudson MD CHEMISTRY ORDERABLE S Performing Organization Address [facility] de Phone Number [facility] [place] [address] * (ABNORMAL) Differential, Automated (05/14/2023 1:10 AM EDT) Pathologist [facility] Neutrophil % 87.2 % [facility] Neutrophil Absolute 9.74(H) 1.70 - 6.10 x10(3)/mc L [facility] Lymph % 3.9 % [facility] Lymphocytes Abs 0.4(L) 0.9 - 3.2 x10(3)/mc L [facility] Monocyte % 7.9 % [facility] Monocyte Abs 0.9 0.3 - 0.9 x10(3)/mc L [facility] Eos % 0.0 % [facility] Eosinophils Abs 0.0 0.0 - 0.4 x10(3)/mc L [facility] Basophil % 0.1 % [facility] Baso Absolute 0.0 0.0 - 0.1 [...] Absolute 0.10(H) 0.00 - 0.04 x10(3)/mc L [facility] Blood 05/14/2023 1:10 AM EDT 05/14/2023 1:24 AM EDT Narrative Resulting Agency Comment Spec In Lab Bonita TOBAR HEMATOLOGY ORDERABLE S [facility] [place] [address] * (ABNORMAL) Hemogram (05/14/2023 1:10 AM EDT) [...] Platelet Volume 10.4 7.6 - 12.9 fL [facility] NRBC% auto 1.5 % [facility] NRBC Absolute 0.170(H) 0.000 - 0.000 x10(3)/mc L [facility] Blood 05/14/2023 1:10 AM EDT 05/14/2023 1:24 AM EDT Narrative Resulting Agency Comment Spec In Lab Bonita TOBAR HEMATOLOGY ORDERABLE S [facility] [place] [address] * (ABNORMAL) Comprehensive metabolic panel (non-fasting) (05/14/2023 [...] Address [facility] Co de Phone Number [facility] [place] [address] * APTT (05/13/2023 10:15 AM EDT) Partial [...] Address [facility] Co de Phone Number [facility] [place] [address] * (ABNORMAL) Prothrombin Time (05/13/2023 10:15 AM EDT) Prothrombin Time 14.6(H) 9.4 - 12.5 sec [facility] International Normalization Ratio 1.3 [...] HEMATOLOGY ORDERABL ES Performing Organization Address City/[facility] Co de Phone Number [facility] [place] [address] * EKG 12 Lead (05/13/2023 9:22 AM EDT) Ventricular rate 92 BPM MUSE SYSTEM Atrial Rate 92 BPM MUSE SYSTEM P-R Interval 140 ms MUSE SYSTEM QRS Duration 104 ms MUSE SYSTEM Q-T Interval 384 ms MUSE SYSTEM QTC Calculated (Bezet) 474 ms MUSE SYSTEM Calculated P [place] 33 degrees MUSE SYSTEM Calculated R [place] 41 degrees MUSE SYSTEM Calculated T [place] -35 degrees MUSE SYSTEM INTERPRETATION Sinus rhythm with frequent Premature ventricular complexes Septal infarct , age undetermined ST & T wave abnormality, consider lateral ischemia Abnormal ECG When compared with ECG of 12-MAY-2023 10:10, Premature ventricular complexes are now Present I personally reviewed the tracing and edited the fellows interpretation Confirmed by fellow MD Anitha, Carissa ([id number]) on 05/13/2023 3:25:30 PM Confirmed by Maxx Best ([id number]) on 05/13/2023 8:30:56 PM MUSE SYSTEM 05/13/2023 9:22 AM EDT 05/13/2023 8:30 PM EDT Alirio Hudson MD ECG ORDERABLES Performing Organization Address [facility] Co de Phone Number MUSE SYSTEM * (ABNORMAL) Differential, Automated (05/13/2023 1:15 AM EDT) Neutrophil % 88.1 % [facility] Neutrophil Absolute 7.62(H) 1.70 - 6.10 x10(3)/mc L [facility] Lymph % 3.1 % [facility] Lymphocytes Abs 0.3(L) 0.9 - 3.2 x10(3)/mc L [facility] Monocyte % 7.9 % [facility] Monocyte Abs 0.7 0.3 - 0.9 x10(3)/mc L [facility] Eos % 0.0 % [facility] Eosinophils Abs 0.0 0.0 - 0.4 x10(3)/mc L [facility] Basophil % 0.1 % [facility] Baso Absolute 0.0 0.0 - 0.1 x10(3)/ L [facility] Immature Gran % [...] Absolute 0.07(H) 0.00 - 0.04 x10(3)/ L [facility] Blood 05/13/2023 1:15 AM EDT 05/13/2023 1:29 AM EDT Narrative Resulting Agency Comment Spec In Lab Lorri TOBAR HEMATOLOGY ORDERABLE S [facility] [place] [address] * (ABNORMAL) Hemogram (05/13/2023 1:15 AM EDT) White Blood Cell 8.6 4.0 - 9.5 x10(3)/ L [facility] Red Blood Cell 2.37(L) 4.00 - 5.21 x10(6)/[facility] Hemoglobin 7.8(L) 11.7 - 15.5 g/dL [facility] Hematocrit 22.2(L) 35.7 - 45.8 % [facility] Mean Cell Volume 93.7 82.6 - 94.4 fL [facility] Mean Cell Hemoglobin 32.9(H) 27.1 - 32.0 pg [facility] Mean Cell Hemoglobin Concentration 35.1(H) 31.7 - 35.0 g/dL [facility] Platelet 130(L) 145 - 357 x10(3)/ L [facility] RDW Standard Deviation 41.7 37.0 - 46.0 fL [facility] RDW coefficient of variation 12.5 11.5 - 14.1 % [facility] Mean Platelet Volume 10.2 7.6 - 12.9 fL [facility] NRBC% auto 0.5 % [facility] NRBC Absolute 0.040(H) 0.000 - 0.000 x10(3)/mc L [facility] Blood 05/13/2023 1:15 AM EDT 05/13/2023 1:29 AM EDT Narrative Resulting Agency Comment Spec In Lab Lorri TOBAR HEMATOLOGY ORDERABLE S [facility] [place] [address] * (ABNORMAL) Hepatic Function Panel (05/13/2023 1:15 AM EDT) Protein, Total 5.5(L) 6.1 - 8.0 g/dL [facility] Albumin 3.0(L) 3.2 - 5.2 g/dL [facility] Aspartate Aminotransferase 792(H) 0 - [...] MD CHEMISTRY ORDERABLE S [facility] [place] [address] * (ABNORMAL) Basic Metabolic Panel (non-fasting) (05/13/2023 1:15 AM EDT) Glucose 107 65 - 199 mg/dL [facility] Comment:Diabetes: >=200 mg/d L plus symptoms Blood Urea Nitrogen 82(H) 8 - 18 mg/dL [facility] Creatinine 3.15(H) 0.70 - 1.20 mg/dL [facility] Comment:result rechecked-JSJ Sodium 132(L) 135 - 145 mmol/L [facility] [...] MD CHEMISTRY ORDERABLE S [facility] [place] [address] * (ABNORMAL) BLOOD GAS 2 ARTERIAL (05/12/2023 [...] mmol/L [facility] Gluc Whole Bld 178 65 - 199 mg/dL [facility] Comment:Diabetes: >=200 mg/d L plus symptoms. Lactate WB 1.5 0.5 - 2.2 mmol/L [facility] FIO2 Art 40 % [facility] PF Ratio Art 252 [facility] Blood 05/12/2023 3:57 PM EDT 05/12/2023 3:57 PM EDT Alirio Hudson MD POINT OF CARE TEST ORDERABLES [facility] [place] [address] * (ABNORMAL) Coox2 (05/12/2023 2:25 PM EDT) pO2, Coox 37 mmHg [facility] Hgb Blood Gas 9.5(L) 11.7 - 15.5 g/dL [facility] Oxyhemoglobin, Coox 59.9 % [facility] Carboxyhemoglo bin, Coox 0.3 % [facility] Comment: Nonsmokers: 0.5-1.5% COHB Smokers: Variable, but usually less than 10% Toxic: 20-30% COHB Lethal: Greater than 60% COHB Methemoglobin, Coox 0.7 <=1.5 % [facility] Source Coox Mixed Venous [facility] Blood 05/12/2023 2:25 PM EDT 05/12/2023 2:25 PM EDT Alirio Hudson MD POINT OF CARE TEST ORDERABLES [facility] [place] [address] * (ABNORMAL) BLOOD GAS 2 ARTERIAL (05/12/2023 [...] HOSPITAL [facility] Carboxyhemoglob in, Arterial 0.3 % [facility] Comment: Nonsmokers: 0.5-1.5% COHB Smokers: Variable, but usually less than 10% Toxic: 20-30% COHB Lethal: Greater than 60% COHB Methemoglobin, Arterial 0.7 <=1.5 % [facility] Na Whole Blood 129(L) 135 - 145 mmol/L [facility] K Whole Blood 3.7 3.5 - 5.0 mmol/L [facility] Comment: Please note: Patients [...] [facility] FIO2 Art 40 % [facility] PF Ratio Art 255 [facility] Blood 05/12/2023 2:23 PM EDT 05/12/2023 2:23 PM EDT Alirio Hudson MD POINT OF CARE TEST ORDERABLES Performing Organization Address City/State/[facility] Co de Phone Number [facility] [place] [address] * (ABNORMAL) Troponin (05/12/2023 2:05 PM EDT) [...] troponin value can be found in the [facility] Test Catalog Troponin - [facility] Test Catalog Reference: Fourth [place] Definition of Myocardial Infarction. Journal of the [employer] 2018;72:9147-7547 Blood 05/12/2023 2:05 PM EDT 05/12/2023 2:14 PM EDT Narrative Resulting Agency Comment Spec In Lab Alirio Hudson MD CHEMISTRY ORDERABLE S [facility] [place] [address] * (ABNORMAL) Hemoglobin (05/12/2023 2:05 PM EDT) [facility] Hemoglobin 8.5(L) 11.7 - 15.5 g/dL [facility] Blood 05/12/2023 2:05 PM EDT 05/12/2023 2:14 PM EDT Narrative Resulting Agency Comment Spec In Lab Alirio Hudson MD HEMATOLOGY ORDERABL ES Performing Organization Address [facility] Co de Phone Number [facility] [place] [address] * Potassium (05/12/2023 2:05 PM EDT) [facility] Potassium 3.9 3.5 - 5.0 mmol/L [facility] Comment: Please note: ??Patients [...] CHEMISTRY ORDERABLE S Performing Organization Address City/[facility]/ZIP Co de Phone Number [facility] [place] [address] * (ABNORMAL) BLOOD GAS 2 ARTERIAL (05/12/2023 11:05 AM EDT) pH, Arterial 7.34(L) 7.35 - 7.45 [facility] PCO2, Arterial 42 35 - 45 mmHg [facility] PO2, Arterial 73(L) 85 - 104 mmHg [facility] Bicarbonate, Arterial 22.1 20.0 - 26.0 mmol/L [facility] Base Excess, Arterial -3.6(L) -3.0 - 3.0 mmol/L [facility] Hgb Blood Gas 9.3(L) 11.7 - 15.5 g/dL [facility] Oxyhemoglobin, Arterial 89.3(L) 94.0 - 97.0 % [facility] Carboxyhemoglob in, Arterial 0.2 % [facility] Comment: Nonsmokers: 0.5-1.5% COHB Smokers: Variable, but usually less than 10% Toxic: 20-30% COHB Lethal: Greater than 60% COHB Methemoglobin, Arterial 0.9 <=1.5 % [facility] Na Whole Blood 131(L) 135 - 145 mmol/L [facility] [...] Lactate WB 2.8(H) 0.5 - 2.2 mmol/L [facility] FIO2 Art 40 % [facility] PF Ratio Art 182 [facility] Blood 05/12/2023 11:0 5 AM EDT 05/12/2023 11:05 AM EDT Alirio Hudson MD POINT OF CARE TEST ORDERABLES [facility] [place] [id number] * (ABNORMAL) BLOOD GAS 2 ARTERIAL (05/12/2023 10:14 AM EDT) pH, Arterial 7.18(Criti gabrielle) 7.35 - 7.45 [facility] Comment:Noted by percussion instrument repairer. PCO2, Arterial 45 35 - [...] 60% COHB Methemoglobin, Arterial 0.9 <=1.5 % [facility] Na Whole Blood 129(L) 135 - 145 mmol/L [facility] K Whole Blood 3.6 [...] Whole Blood 97(L) 98 - 107 mmol/L [facility] Gluc Whole Bld 161 65 - 199 mg/dL [facility] Comment:Diabetes: >=200 mg/d L plus symptoms. Lactate WB 3.3(H) 0.5 - 2.2 mmol/L [facility] FIO2 Art 100 % [facility] PF Ratio Art 186 [facility] Blood 05/12/2023 10:1 4 AM EDT 05/12/2023 10:14 AM EDT Alirio Hudson MD POINT OF CARE TEST ORDERABLES Performing Organization Address City/[facility]/[place]IP [place] [address] * EKG 12 Lead (05/12/2023 10:10 AM EDT) Ventricular rate 116 BPM MUSE SYSTEM Atrial Rate 116 BPM MUSE SYSTEM P-R Interval 158 ms MUSE SYSTEM QRS Duration 114 ms MUSE SYSTEM Q-T Interval 348 ms MUSE SYSTEM QTC Calculated (Bezet) 483 ms MUSE SYSTEM Calculated P [place] 37 degrees MUSE SYSTEM Calculated R [place] 31 degrees MUSE SYSTEM Calculated T [place] -138 degrees MUSE SYSTEM INTERPRETATION Sinus tachycardia [...] interpretation Confirmed by fellow MD Anuja, Jim ([id number]) on 05/12/2023 1:04:20 PM Confirmed by MD Mono, Eleni ([id number]) on 05/12/2023 9:28:34 PM MUSE SYSTEM 05/12/2023 10:1 0 AM EDT 05/12/2023 9:28 PM EDT Alirio Hudson MD ECG ORDERABLES Performing Organization Address [place]/[facility]/ZIP Co de Phone Number MUSE SYSTEM * [...] have questions please contact the health pharmacy customer care specialist that requested your imaging [...] course of the esophagus and outside the [id number]. Interval retraction of right IJ approach pulmonary [...] expected course ofthe esophagus and outside the [id number]. Interval retraction of right IJ approach pulmonary [...] who have questions please contactthe health pharmacy customer care specialist that requested your imaging first. Alirio Hudson MD IMG DX ORDERABLES * ECHO LMTD W/O CONTRAST W LMTD SPEC DOPP COLOR DOPP (05/12/2023 9:23 AM EDT) Pathologist [facility] EF 20 HEARTLAB SYSTEM Anatomical Region Laterality Modality Cardiac Other 05/12/2023 7:33 AM EDT Narrative 05/12/2023 10:18 AM EDT ? Echocardiogram Report Name: PURNIMA THACKER ?Study Date: 05/12/2023 07:33 AMBP: 96/63 mmHg ? Patient Location: [address] : 1955 ? Height: 154 cm ? Account: [id number] Age: 67 yrs ? Weight: 75 kg [...] mL/m2. POST TAVR: Normal function of the mdiqw-ns-rxdpk prosthesis. See below for hemodynamic parameters. Slight improvement in left and right ventricular systolic function. LVEF now 20-25%. No pericardial effusion. See report for additional findings. Procedure Limited - 93143. Doppler - 58718. Color Doppler - 47424. Left Ventricle Left ventricle is of normal [...] Date: 307:33 AMBP: 96/63 mmHg Patient Location: [address] : 1955 Height: 154 cm Account: [id number] Age: 67 yrs Weight: 75 kg Gender: [...] 28mL/m2. POST TAVR: Normal function of the gmozh-zw-yhggf prosthesis. See belowfor hemodynamic parameters. Slight improvement in left and right ventricularsystolic function. LVEF now 20-25%. No pericardial effusion. See report for additional findings. Procedure Limited - 33492. Doppler - 88647. Color Doppler - 73801. Left Ventricle Left ventricle is of normal [...] ? Procedure Date: 05/12/2023 ? A #: [id number] ? Primary Physician: Zachary, Antelmo De La Fuente ? Case #: [id number] ? File Name: [id number] ? Catheterization Order Number: [id number] ? [facility] ? Final Report [place], [place] ? Patient Name: ? Purnima M. Kirstie ? ID#: ?[id number] ? : ?1955 ? Procedure Date: ? [...] Device Deployment ?* Temporary Pacemaker Insertion In Profile Shaper Operator ?* Endotracheal Intubation By Non-Cath Physician ?* Cardiopulmonary Resuscitation ?* Access Site Angiography ?* Anesthesia ?* Arterial Blood Gases ?* Transthoracic Echo During Cath ? History ?Purnimakary Thacker is a 67 year old woman. [...] ??A premounted 4.00 x 30 mm Nils Navajo (MINNA) was ? deployed with a maximum [...] calculated STS risk score was 30.1%. A jnubp-jk-xzjcj ?procedure was performed on the pre-existing bioprosthetic stented ?prosthesis. The priority of the bomeo-xd-xjzmh procedure was Elective. ?The procedure was performed [...] Lai 3 Ultra RESILIA 23 mm THV (s/s=[id number]) transcatheter ?valve was inserted using standard technique. [...] nor was it given in the ?lab support tech. ?Recommended anti-platelet/anti-thrombotic regimen: ?Continue aspirin 81 mg daily for indefinitely. ?These recommendations are made at the time of the intervention. Patient ?and provider preferences or a changing clinical situation may require ?modification of this regimen. Consult [facility] Interventional [facility]iology for ?questions. ? [...] regimen. ? Comments: ?Successful right transfemoral TAVR Wqxle-ly-Rtmll with a 23 mm Lai 3 ?THV. [...] access site angiography, ?temporary pacemaker in lab support tech, intubation-non cath physician, vascular ?closure device, transthoracic echo ??and TAVR. Dr. Alirio Hudson M.D. ?performed the left heart catheterization, access site angiography, ?temporary pacemaker in lab support tech, vascular closure device, transthoracic ?echo , TAVR [...] Purnima Thacker Procedure Date: 05/12/2023 A #: [id number] Primary Physician: Antelmo Sharma Case #: [id number] File Name: [id number] Catheterization Order Number: [id number] [facility] FinalReport [place], [place] Patient Name: Purnima Thacker ID#:[id number] :1955 Procedure Date: May 12, 2023 Case #: [id number] Room: 6 [facility] Physicians: Antelmo Sharma M.D. Start: 08:03 Alirio Hudson M.D. Admission:05/08/2023 Lynda Mcgowan M.D. Discharge:05/22/2023 Fellow: Rebekah Tejeda M.D. Referring Physician: Mario Alberto Chin M.D. Procedures: * Coronary Angiography * Left Heart Catheterization * Coronary Stent Insertion * Transcatheter Aortic Valve Replacement * Vascular Closure Device Deployment * Temporary Pacemaker Insertion In Profile Shaper Operator * Endotracheal Intubation By Non-Cath Physician [...] guide. A premounted 4.00 x 30 mm [place] Navajo (MINNA) was deployed with a maximum inflation [...] calculated STS risk score was 30.1%. A czpnd-ws-rojnm procedure was performed on the pre-existing bioprosthetic stented prosthesis. The priority of the rqyjy-ef-cydgm procedure wasElective. The procedure was performed under Moderate sedation performed byLynda Mcgowan M.D. (see anesthesia report for additional details). Alirio Hudson M.D. participated in the case (see Cardiac Surgery reportfor additional details). The TAVR sheath was a 14 Fr Corona eSheath Introducer and theaccess site was femoral. Rapid ventricular pacing was performed. An Corona Lai 3 Ultra RESILIA 23 mm THV (s/r=[id number])transcatheter valve was inserted using standard technique. The [...] to nor was it given inthe lab support tech. Recommended anti-platelet/anti-thrombotic regimen: Continue aspirin 81 mg daily for indefinitely. These recommendations are made at the time of the intervention.Patient and provider preferences or a changing clinical situation mayrequire modification of this regimen. Consult [facility]ventional [facility]iologyfor questions. Conclusions: * [...] this regimen. Comments: Successful right transfemoral TAVR Trswy-xx-Ldogy with a 23 mmSapien 3 THV. We [...] access site angiography, temporary pacemaker in lab support tech, intubation-non cath physician,vascular closure device, transthoracic echo and TAVR. Dr. Alirio Hudson M.D. performed the left heart catheterization, access site angiography, temporary pacemaker in lab support tech, vascular closure device,transthoracic echo , TAVR and [...] pCO2, POC 42 35 - 45 mmHg [facility] pO2, POC 260(H) 85 - 104 mmHg [facility] Base Excess, POC -11.0(L) -3.0 - 3.0 mmol/L [facility] Bicarbonate, POC 16.7(L) 20.0 - 26.0 mmol/L [facility] Sodium, POC 129(L) 135 - 145 mmol/L [facility] POC Potassium 3.8 3.5 - 5.0 mmol/L [facility] Ionized Calcium, POC 1.12(L) 1.15 - 1.33 mmol/L [facility] POC Hematocrit 23.0(L) 34.0 - 45.0 % [facility] POC Calc Hgb 7.8(L) 11.2 - 15.7 g/dL [facility] Comment:The calculation of h emoglobin from hematocrit assumes a normal MCHC. POC Bgas Loc CC Lab [facility] Blood 05/12/2023 8:50 AM EDT 05/13/2023 12:00 PM EDT Alirio Hudson MD CHEMISTRY ORDERABLE S [facility] [place] [address] * (ABNORMAL) Point of Care Blood Gas Historical (05/12/2023 8:10 AM EDT) pH, POC 7.27(Crit ical) 7.35 - 7.45 [facility] Comment:Critical value OK, C C Lab. pCO2, POC 37 35 - 45 mmHg [facility] pO2, POC 29(Critic al) 85 - 104 mmHg [facility] Comment:Critical value OK, C C Lab. Base Excess, POC -10.0(L) -3.0 - 3.0 mmol/L [facility] Bicarbonate, POC 16.7(L) 20.0 - 26.0 mmol/L [facility] Sodium, POC 123(L) 135 - 145 mmol/L [facility] POC Potassium 4.0 3.5 - 5.0 mmol/L [facility] Ionized Calcium, POC 1.12(L) 1.15 - 1.33 mmol/L [facility] POC Hematocrit 27.0(L) 34.0 - 45.0 % [facility] POC Calc Hgb 9.2(L) 11.2 - 15.7 g/dL [facility] Comment:The calculation of h emoglobin from hematocrit assumes a normal MCHC. POC Bgas Loc CC Lab [facility] Blood 05/12/2023 8:10 AM EDT 05/13/2023 12:00 PM EDT Alirio Hudson MD CHEMISTRY ORDERABLE S [facility] [place] [address] * (ABNORMAL) Lactate, whole blood, send to lab ([facility]) (05/12/2023 7:00 AM EDT) Lactate WB 2.4(H) 0.5 - 2.2 mmol/L [facility] Blood 05/12/2023 7:00 AM EDT 05/12/2023 7:09 AM EDT Narrative Resulting Agency Comment Spec In Lab Radha Hollins MD CHEMISTRY ORDERABL ES [facility] [place] [address] * (ABNORMAL) Comprehensive metabolic panel (non-fasting) (05/12/2023 6:00 AM EDT) Glucose 167 65 - 199 mg/dL [facility] Comment:Diabetes: >=200 mg/d L plus symptoms Blood Urea Nitrogen 67(H) 8 - 18 mg/dL [facility] Creatinine 2.01(H) 0.70 - 1.20 mg/dL [facility] [...] 10.5 mg/dL [facility] Protein, Total 6.3 6.1 - 8.0 g/dL [facility] Albumin 3.5 3.2 - 5.2 [...] CHEMISTRY ORDERABL ES Performing Organization Address City/[facility] [place] [address] * (ABNORMAL) Coox2 (05/12/2023 5:08 AM EDT) pO2, Coox 24 mmHg [facility] Hgb Blood Gas 10.4(L) 11.7 - 15.5 g/dL [facility] Oxyhemoglobin, Coox 30.7 % [facility] Carboxyhemoglo bin, Coox 0.3 % [facility] Comment: Nonsmokers: 0.5-1.5% COHB Smokers: Variable, but usually less than 10% Toxic: 20-30% COHB Lethal: Greater than 60% COHB Methemoglobin, Coox 0.8 <=1.5 % [facility] Source Coox Mixed Venous [facility] Blood 05/12/2023 5:08 AM EDT 05/12/2023 5:08 AM EDT Radha Hollnis MD POINT OF CARE TEST ORDERABLES Performing Organization Address [facility] Co de Phone Number [facility] [place] [address] * (ABNORMAL) Coox2 (05/12/2023 3:21 AM EDT) pO2, Coox 25 mmHg [facility] Hgb Blood Gas 10.8(L) 11.7 - 15.5 g/dL [facility] Oxyhemoglobin, Coox 32.7 % [facility] Carboxyhemoglo bin, Coox 0.3 % [facility] Comment: Nonsmokers: 0.5-1.5% COHB Smokers: Variable, but usually less than 10% Toxic: 20-30% COHB Lethal: Greater than 60% COHB Methemoglobin, Coox 0.7 <=1.5 % [facility] Source Coox Mixed Venous [facility] Blood 05/12/2023 3:21 AM EDT 05/12/2023 3:21 AM EDT Radha Hollins MD POINT OF CARE TEST ORDERABLES [facility] [place] [address] * (ABNORMAL) BLOOD GAS 2 ARTERIAL (05/12/2023 [...] % [facility] Na Whole Blood 131(L) 135 - 145 mmol/L [facility] K Whole Blood 4.2 3.5 - 5.0 mmol/L [facility] Comment: Please note: Patients with WBC >100,000 may have falsely elevated Potassium levels. Contact the Clinical Chemistry Laboratory if there are any questions. ICa Whole Blood 1.12(L) 1.15 - 1.33 mmol/L [facility] Comment: Note: ??Total bilirubin higher than 20 mg/dL may lead to falsely low ionized calcium. CL Whole Blood 100 98 - 107 mmol/L [facility] Gluc Whole Bld 160 65 - 199 mg/dL [facility] Comment:Diabetes: >=200 mg/d L plus symptoms. Lactate WB 2.7(H) 0.5 - 2.2 mmol/L [facility] Flow Art 5.0 LPM [facility] Blood 05/12/2023 3:18 AM EDT 05/12/2023 3:18 AM EDT Radha Hollins MD POINT OF CARE TEST ORDERABLES Performing Organization Address [facility] Co de Phone Number [facility] [place] [address] * (ABNORMAL) Coox2 (05/12/2023 1:14 AM EDT) pO2, Coox 28 mmHg [facility] Hgb Blood Gas 10.9(L) 11.7 - 15.5 g/dL [facility] Oxyhemoglobin, Coox 37.3 % [facility] Carboxyhemoglo bin, Coox 0.3 % [facility] Comment: Nonsmokers: 0.5-1.5% COHB Smokers: Variable, but usually less than 10% Toxic: 20-30% COHB Lethal: Greater than 60% COHB Methemoglobin, Coox 0.5 <=1.5 % [facility] Source Coox Mixed Venous [facility] Blood 05/12/2023 1:14 AM EDT 05/12/2023 1:14 AM EDT Radha Hollins MD POINT OF CARE TEST ORDERABLES Performing Organization Address [facility] Co de Phone Number [facility] [place] [address] * (ABNORMAL) BLOOD GAS 2 ARTERIAL (05/12/2023 1:06 AM EDT) pH, Arterial 7.34(L) 7.35 - 7.45 [facility] PCO2, Arterial 30(L) 35 [...] 60% COHB Methemoglobin, Arterial 0.6 <=1.5 % [facility] Na Whole Blood 131(L) 135 - 145 mmol/L [facility] K Whole Blood 4.2 3.5 [...] Whole Blood 99 98 - 107 mmol/L [facility] Gluc Whole Bld 132 65 - 199 mg/dL [facility] Comment:Diabetes: >=200 mg/d L plus symptoms. Lactate WB 2.7(H) 0.5 - 2.2 mmol/L [facility] Flow Art 5.0 LPM [facility] Blood 05/12/2023 1:06 AM EDT 05/12/2023 1:06 AM EDT Radha Hollins MD POINT OF CARE TEST ORDERABLES Performing Organization Address City/State/[facility] Co de Phone Number [facility] [place] [address] * (ABNORMAL) Differential, Automated (05/12/2023 1:05 AM EDT) Neutrophil % 83.3 % [facility] Neutrophil Absolute 7.49(H) 1.70 - 6.10 x10(3)/mc L [facility] Lymph % 7.1 % [facility] Lymphocytes Abs 0.6(L) 0.9 - 3.2 x10(3)/mc L [facility] Monocyte % 8.9 % [facility] Monocyte Abs 0.8 0.3 - 0.9 x10(3)/mc L [facility] Eos % 0.0 % [facility] Eosinophils Abs 0.0 0.0 - 0.4 x10(3)/ L [facility] Basophil % 0.1 % [facility] Baso Absolute 0.0 0.0 - 0.1 x10(3)/ L [facility] Immature Gran % [...] Absolute 0.05(H) 0.00 - 0.04 x10(3)/ L [facility] Blood 05/12/2023 1:05 AM EDT 05/12/2023 1:15 AM EDT Narrative Resulting Agency Comment Spec In Lab Gianni Fletcher MD HEMATOLOGY ORDERABLE S [facility] [place] [address] * (ABNORMAL) Hemogram (05/12/2023 1:05 AM EDT) [...] HOSPITAL [facility] Platelet 186 145 - 357 x10(3)/ L [facility] RDW Standard Deviation 43.7 37.0 - 46.0 fL [facility] RDW coefficient of variation 12.7 11.5 - 14.1 % [facility] Mean Platelet Volume 10.3 7.6 - 12.9 fL [facility] NRBC% auto 0.0 % [facility] NRBC Absolute 0.000 0.000 - 0.000 x10(3)/mc L [facility] Blood 05/12/2023 1:05 AM EDT 05/12/2023 1:15 AM EDT Narrative Resulting Agency Comment Spec In Lab Gianni Fletcher MD HEMATOLOGY ORDERABLE S [facility] [place] [address] * (ABNORMAL) Comprehensive metabolic panel (non-fasting) (05/12/2023 [...] Carbon Dioxide 14(L) 22 - 31 mmol/L [facility] Anion Gap 21(H) 5 - 15 mmol/L [facility] Calcium 9.0 8.5 - 10.5 mg/dL [facility] Protein, Total 6.6 6.1 - 8.0 g/dL [facility] Albumin 3.9 3.2 - 5.2 g/dL [facility] Aspartate Aminotransferase 1,227(H) 0 - 30 unit/L [facility] Alanine Aminotransferase 1,097(H) 0 [...] MD CHEMISTRY ORDERABL ES [facility] [place] [address] * XR Chest One View (05/12/2023 1:00 [...] have questions please contact the health pharmacy customer care specialist that requested your imaging [...] who have questions please contactthe health pharmacy customer care specialist that requested your imaging first. Radha Hollins MD IMG DX ORDERABLES * (ABNORMAL) Coox2 (05/12/2023 12:30 AM EDT) pO2, Coox 22 mmHg [facility] Hgb Blood Gas 10.9(L) 11.7 - 15.5 g/dL [facility] Oxyhemoglobin, Coox 25.1 % [facility] Carboxyhemoglo bin, Coox 0.3 % [facility] Comment: Nonsmokers: 0.5-1.5% COHB Smokers: Variable, but usually less than 10% Toxic: 20-30% COHB Lethal: Greater than 60% COHB Methemoglobin, Coox 1.4 <=1.5 % [facility] Source Coox Mixed Venous [facility] Blood 05/12/2023 12:3 0 AM EDT 05/12/2023 12:30 AM EDT Radha Hollins MD POINT OF CARE TEST ORDERABLES [facility] [place] [address] * XR Chest One View (05/11/2023 11:45 [...] have questions please contact the health pharmacy customer care specialist that requested your imaging [...] who have questions please contactthe health pharmacy customer care specialist that requested your imaging first. Radha Hollins MD IMG DX ORDERABLES * (ABNORMAL) Lactate, whole blood, send to lab ([facility]) (05/11/2023 7:40 PM EDT) Lactate WB 4.8(Critic al) 0.5 - 2.2 mmol/L [facility] Comment:Called by: [facility], Read back by: Magdalena Baires, Date/Time:05/11/23 19:54. Blood 05/11/2023 7:40 PM EDT 05/11/2023 7:49 PM EDT Narrative Resulting Agency Comment Spec In Lab Radha Hollins MD CHEMISTRY ORDERABL ES Performing Organization Address City/[facility]/ZIP Co de Phone Number [facility] [place] [address] * Urine culture (05/11/2023 7:22 PM EDT) [facility] Urine Culture 50,000-99,000 cfu/ml Normal mucosal herman Susceptibilit y testing not routinely performed for Coagulase Negative Staphylococcu s species and other Gram Positive organisms from urine. [facility] Clean Catch Urine 05/11/2023 7:22 PM EDT 05/11/2023 8:50 PM EDT Narrative Resulting Agency Comment Spec In Lab Brody Kaplan APRN MICROBIOLOGY - GENE RAL ORDERABLES Performing Organization Address City/[facility]/ZIP Co de Phone Number [facility] [place] [address] * (ABNORMAL) Urinalysis Microscopic Exam (05/11/2023 7:22 [...] Agency Comment Spec In Lab Brody Kaplan WAREHOUSE CHECKER URINE ORDERABLES Performing Organization Address City/State/[facility] Co de Phone Number [facility] [place] [address] * (ABNORMAL) Urinalysis with reflex Culture (05/11/2023 [...] HOSPITAL [facility] Leukocytes, Urine Dipstick Moderate(A) Negative [facility] Appearance, Urine Dipstick Cloudy(A) Clear [facility] Specific [place] Urine Automated >=1.030(A) 1.005 - 1.030 [facility] Color, Urine Dipstick Yellow Yellow [facility] Reflex to Culture Yes [facility] Clean Catch Urine 05/11/2023 7:22 PM EDT 05/11/2023 7:31 PM EDT Narrative Resulting Agency Comment Spec In Lab Brody Kaplan WAREHOUSE CHECKER URINE ORDERABLES Performing Organization Address City/[facility]/ZIP Co de Phone Number [facility] [place] [address] * (ABNORMAL) pro-Brain Natriuretic Peptide (05/11/2023 7:11 PM EDT) NT-proBNP >35,000(H) <=124 pg/mL [facility] Blood 05/11/2023 7:11 PM EDT 05/11/2023 7:26 PM EDT Narrative Resulting Agency Comment Spec In Lab Radha Hollins MD CHEMISTRY ORDERABL ES Performing Organization Address [facility] Co de Phone Number [facility] [place] [address] * (ABNORMAL) Lactate, whole blood, send to lab ([facility]) (05/11/2023 2:47 PM EDT) Lactate WB 2.9(H) 0.5 - 2.2 mmol/L [facility] Blood 05/11/2023 2:47 PM EDT 05/11/2023 2:53 PM EDT Narrative Resulting Agency Comment Spec In Lab Juan Luis Gonzalez MD CHEMISTRY ORDERABLES Performing Organization Address [facility] Co de Phone Number [facility] [place] [address] * (ABNORMAL) CT Angiogram Abdomen & Pelvis [...] have questions please contact the health pharmacy customer care specialist that requested your imaging [...] have questions please contact the health pharmacy customer care specialist that requested your imaging [...] 610 mm2 Circumference: 88 mm Calcification: Mild Vsinxjf-hh-bydegoyl height: Left: 6.2 mm Right: 5.8 mm THORACIC AORTA Description: Normal course and caliber. ??Mild diffuse atherosclerotic changes. No acute aortopathy noted. Emergency Response Coordinator dimensions: Aortic root: 27.6 mm Max ascending aorta: 30.5 mm x 27.7 mm Suggested fluoroscopic angulation based on line extending through the nadirs of the three sinuses of Valsalva, set equidistant: ?? GUINEAN ??9 degrees; cranial 7 degrees MITRAL: Mitral [...] CTA Abdomen & Pelvis finding. Procedure Note Min, Cullen B, MD - 05/11/2023 EXAMINATION: CT CARDIAC FOR [...] 610 mm2 Circumference: 88 mm Calcification: Mild Vlkglll-ei-bvbnywda height: Left: 6.2 mm Right: 5.8 mm THORACIC AORTA Description: Normal course and caliber. Mild diffuse atheroscleroticchanges. No acute aortopathy noted. Emergency Response Coordinator dimensions: Aortic root: 27.6 mm Max ascending aorta: 30.5 mm x 27.7 mm Suggested fluoroscopic angulation based on line extending through thenadirs of the three sinuses of Valsalva, set equidistant: GUINEAN 9 degrees; cranial 7 degrees MITRAL: Mitral [...] who have questions please contactthe health pharmacy customer care specialist that requested your imaging first. Antelmo Sharma MD IM CT ORDERABLES * (ABNORMAL) Lactate, whole blood, send to lab ([facility]) (05/11/2023 9:29 AM EDT) Pathologist [facility] Lactate WB 3.1(H) 0.5 - 2.2 mmol/L [facility] Blood 05/11/2023 9:29 AM EDT 05/11/2023 9:38 AM EDT Narrative Resulting Agency Comment Spec In Lab Juan Luis Gonzalez MD CHEMISTRY ORDERABLES [facility] [place] [address] * (ABNORMAL) Differential, Automated (05/11/2023 4:42 AM EDT) [facility] Neutrophil % 78.1 % [facility] Neutrophil Absolute 5.46 1.70 - 6.10 x10(3)/mc L [facility] Lymph % 10.6 % [facility] Lymphocytes Abs 0.7(L) 0.9 - 3.2 x10(3)/ L [facility] Monocyte % 9.6 % [facility] Monocyte Abs 0.7 0.3 - 0.9 x10(3)/ L [facility] Eos % 0.0 % [facility] Eosinophils Abs 0.0 0.0 - 0.4 x10(3)/[facility] Basophil % 0.4 % [facility] Baso Absolute 0.0 0.0 - 0.1 x10(3)/[facility] Immature Gran % 1.30 % [facility] Comment: Immature granulocytes(IG's)percentage and absolute count will include metamyelocytes, myelocytes, and promyelocytes. Blood smears from CBCs yielding IG's will be scanned manually for concordance. If this scan disagrees with the automated IG or if promyelocytes are noted, a manual differential will be performed. Immature Gran Absolute 0.09(H) 0.00 - 0.04 x10(3)/ L [facility] Blood 05/11/2023 4:42 AM EDT 05/11/2023 4:49 AM EDT Narrative Resulting Agency Comment Spec In Lab Klaudia Reid MD HEMATOLOGY OR DERABLES Performing Organization Address City/State/[facility] Co de Phone Number [facility] [place] [address] * (ABNORMAL) Hemogram (05/11/2023 4:42 AM EDT) White Blood Cell 7.0 4.0 - 9.5 x10(3)/ L [facility] Red Blood Cell 3.44(L) 4.00 - 5.21 x10(6)/ L [facility] Hemoglobin 11.1(L) 11.7 - 15.5 g/dL [facility] Hematocrit 32.7(L) 35.7 - 45.8 % [facility] Mean Cell Volume 95.1(H) 82.6 - 94.4 fL [facility] Mean Cell Hemoglobin 32.3(H) 27.1 [...] Platelet Volume 10.1 7.6 - 12.9 fL [facility] NRBC% auto 0.0 % [facility] NRBC Absolute 0.000 0.000 - 0.000 x10(3)/mc L [facility] Blood 05/11/2023 4:42 AM EDT 05/11/2023 4:49 AM EDT Narrative Resulting Agency Comment Spec In Lab Klaudia Reid MD HEMATOLOGY OR DERABLES Performing Organization Address City/State/[facility] Co de Phone Number [facility] [place] [address] * Heparin (unfractionated) Level (05/11/2023 4:42 AM EDT) UF Heparin 0.46 IU/mL [facility] Comment: Heparin (anti-Xa) levels should be [...] MD HEMATOLOGY ORDERAB LES [facility] [place] [address] * (ABNORMAL) Comprehensive metabolic panel (non-fasting) (05/11/2023 4:42 AM EDT) Glucose 143 65 - 199 mg/dL [facility] Comment:Diabetes: >=200 mg/d L plus symptoms Blood Urea Nitrogen 42(H) 8 - 18 mg/dL [facility] Creatinine 1.24(H) 0.70 - 1.20 mg/dL [facility] Sodium 134(L) 135 - 145 mmol/L [facility] Potassium 4.6 3.5 - 5.0 [...] 30 unit/L [facility] Comment:result rechecked-ssc Alkaline Phosphatase 72 [...] MD CHEMISTRY ORDERABL ES [facility] [place] [address] * EKG 12 Lead (05/10/2023 1:16 PM EDT) Ventricular rate 118 BPM MUSE SYSTEM Atrial Rate 118 BPM MUSE SYSTEM P-R Interval 152 ms MUSE SYSTEM QRS Duration 104 ms MUSE SYSTEM Q-T Interval 316 ms MUSE SYSTEM QTC Calculated (Bezet) 442 ms MUSE SYSTEM Calculated P Ringgold 29 degrees MUSE SYSTEM Calculated R Ring[place] 18 degrees MUSE SYSTEM Calculated T Ringgold -173 degrees MUSE SYSTEM INTERPRETATION Sinus tachycardia [...] Anterior leads Confirmed by MD Villareal Danette ([id number]) on 05/10/2023 8:47:46 PM MUSE SYSTEM 05/10/2023 1:16 PM EDT 05/10/2023 8:47 PM EDT Juan Luis Gonzalez MD ECG ORDERABLES Performing Organization Address City/[facility]/ZIP Co de Phone Number MUSE SYSTEM * Lactate, whole blood, send to lab ([facility]) (05/10/2023 11:52 AM EDT) Pathologist [facility] Lactate WB 1.8 0.5 - 2.2 mmol/L [facility] Blood 05/10/2023 11:5 2 AM EDT 05/10/2023 12:13 PM EDT Narrative Resulting Agency Comment Spec In Lab Juan Luis Gonzalez MD CHEMISTRY ORDERABLES [facility] [place] [address] * XR Chest One View (05/10/2023 11:16 [...] have questions please contact the health pharmacy customer care specialist that requested your imaging [...] who have questions please contactthe health pharmacy customer care specialist that requested your imaging first. Juan Luis Gonzalez MD IMG DX ORDERABLES * EKG 12 Lead (05/10/2023 7:59 AM EDT) Ventricular rate 115 BPM MUSE SYSTEM Atrial Rate 115 BPM MUSE SYSTEM P-R Interval 142 ms MUSE SYSTEM QRS Duration 102 ms MUSE SYSTEM Q-T Interval 322 ms MUSE SYSTEM QTC Calculated (Bezet) 445 ms MUSE SYSTEM Calculated P Ring[place] 36 degrees MUSE SYSTEM Calculated R [place] 28 degrees MUSE SYSTEM Calculated T Ring[place] -119 degrees MUSE SYSTEM INTERPRETATION Sinus tachycardia with frequent Premature ventricular complexes and Fusion complexes ST & T wave abnormality, consider lateral ischemia Abnormal ECG When compared with ECG of 08-MAY-2023 15:51, No significant change was found I personally reviewed the tracing and edited the fellows interpretation Confirmed by fellow MD Anitha, Carissa ([id number]) on 05/11/2023 6:19:54 AM Confirmed by MD Ugalde Hannah ([id number]) on 05/11/2023 3:18:56 PM MUSE SYSTEM 05/10/2023 7:59 AM EDT 05/11/2023 3:18 PM EDT Radha Hollins MD ECG ORDERABLES MUSE SYSTEM * (ABNORMAL) Differential, Automated (05/10/2023 2:28 AM EDT) Neutrophil % 77.1 % [facility] Neutrophil Absolute 4.01 1.70 - 6.10 x10(3)/mc L [facility] Lymph % 14.0 % [facility] Lymphocytes Abs 0.7(L) 0.9 - 3.2 x10(3)/mc L [facility] Monocyte % 7.7 % [facility] Monocyte Abs 0.4 0.3 - 0.9 x10(3)/mc L [facility] Eos % 0.4 % [facility] Eosinophils Abs 0.0 0.0 - 0.4 x10(3)/mc L [facility] Basophil % 0.4 % [facility] Baso Absolute 0.0 0.0 - 0.1 [...] Absolute 0.02 0.00 - 0.04 x10(3)/mc L [facility] Blood 05/10/2023 2:28 AM EDT 05/10/2023 2:57 AM EDT Narrative Resulting Agency Comment Spec In Lab Klaudia Reid MD HEMATOLOGY OR DERABLES [facility] [place] [address] * (ABNORMAL) Hemogram (05/10/2023 2:28 AM EDT) White Blood Cell 5.2 4.0 - 9.5 x10(3)/mc L [facility] Red Blood Cell 3.11(L) 4.00 - 5.21 x10(6)/mc L [facility] L [facility] RDW Standard Deviation 44.9 37.0 - 46.0 fL [facility] RDW coefficient of variation 12.8 11.5 - 14.1 % [facility] Mean Platelet Volume 9.8 7.6 - 12.9 fL [facility] NRBC% auto 0.0 % [facility] NRBC Absolute 0.000 0.000 - 0.000 x10(3)/ L [facility] Blood 05/10/2023 2:28 AM EDT 05/10/2023 2:57 AM EDT Narrative Resulting Agency Comment Spec In Lab Klaudia Reid MD HEMATOLOGY OR DERABLES [facility] [place] [address] * (ABNORMAL) Comprehensive metabolic panel (non-fasting) (05/10/2023 [...] Lab Radha Hollins MD CHEMISTRY ORDERABL ES [facility] [place] [address] * Heparin (unfractionated) Level (05/10/2023 2:28 AM EDT) UF Heparin 0.37 IU/mL [facility] Comment: Heparin (anti-Xa) [...] MD HEMATOLOGY ORDERAB LES [facility] [place] [address] * (ABNORMAL) Differential, Automated (05/09/2023 4:00 AM EDT) Neutrophil % 81.7 % [facility] Neutrophil Absolute 5.26 1.70 - 6.10 x10(3)/mc L [facility] Lymph % 10.7 % [facility] Lymphocytes Abs 0.7(L) 0.9 - 3.2 x10(3)/mc L [facility] Monocyte % 6.5 % [facility] Monocyte Abs 0.4 0.3 - 0.9 x10(3)/mc L [facility] Eos % 0.5 % [facility] Eosinophils Abs 0.0 0.0 - 0.4 x10(3)/mc L [facility] Basophil % 0.3 % [facility] Baso Absolute 0.0 0.0 - 0.1 x10(3)/mc L [facility] Immature Gran % 0.30 % [facility] Comment: Immature granulocytes(IG's)percentage and absolute count will include metamyelocytes, myelocytes, and promyelocytes. Blood smears from CBCs yielding IG's will be scanned manually for concordance. If this scan disagrees with the automated IG or if promyelocytes are noted, a manual differential will be performed. Immature Gran Absolute 0.02 0.00 - 0.04 x10(3)/mc L [facility] Blood 05/09/2023 4:00 AM EDT 05/09/2023 4:19 AM EDT Narrative Resulting Agency Comment Spec In Lab Klaudia Reid MD HEMATOLOGY OR DERABLES Performing Organization Address City/[facility]/ZIP Co de Phone Number [facility] [place] [address] * (ABNORMAL) Hemogram (05/09/2023 4:00 AM EDT) White Blood Cell 6.4 4.0 - 9.5 x10(3)/[facility] Red Blood Cell 3.15(L) 4.00 - 5.21 x10(6)/[facility] Hemoglobin 10.2(L) 11.7 - 15.5 g/dL [facility] Hematocrit 30.3(L) 35.7 - 45.8 % [facility] Mean Cell Volume 96.2(H) 82.6 - 94.4 fL [facility] Mean Cell Hemoglobin 32.4(H) 27.1 - 32.0 pg [facility] Mean Cell Hemoglobin Concentration 33.7 31.7 - 35.0 g/dL [facility] Platelet 151 145 - 357 x10(3)/[facility] RDW Standard Deviation 44.7 37.0 - 46.0 fL [facility] RDW coefficient of variation 12.8 11.5 - 14.1 % [facility] Mean Platelet Volume 9.4 7.6 - 12.9 fL [facility] NRBC% auto 0.0 % [facility] NRBC Absolute 0.000 0.000 - 0.000 x10(3)/ L [facility] Blood 05/09/2023 4:00 AM EDT 05/09/2023 4:19 AM EDT Narrative Resulting Agency Comment Spec In Lab Klaudia Reid MD HEMATOLOGY OR DERABLES Performing Organization Address City/[facility] Co de Phone Number [facility] [place] [address] * Heparin (unfractionated) Level (05/09/2023 4:00 AM EDT) UF Heparin 0.47 IU/mL [facility] Comment: Heparin (anti-Xa) [...] MD HEMATOLOGY ORDERAB LES [facility] [place] [address] * (ABNORMAL) Comprehensive metabolic panel (non-fasting) (05/09/2023 [...] CHEMISTRY ORDERABL ES Performing Organization Address City/[facility]/[place] [address] * (ABNORMAL) pro-Brain Natriuretic Peptide (05/08/2023 4:00 PM EDT) NT-proBNP 25,503(H) <=124 pg/mL [facility] Blood Venous Draw / Unknown 05/08/2023 4:00 PM EDT 05/08/2023 4:25 PM EDT Narrative Resulting Agency Comment Spec In Lab Juan Luis Gonzalez MD CHEMISTRY ORDERABLES Performing Organization Address City/[facility]/ZIP Co de Phone Number [facility] [place] [address] * Magnesium (05/08/2023 4:00 PM EDT) Pathologist [facility] Magnesium 0.82 0.69 - 1.07 mmol/L [facility] Blood 05/08/2023 4:00 PM EDT 05/08/2023 4:06 PM EDT Narrative Resulting Agency Comment Spec In Lab Enrique Chua MD CHEMISTRY ORDERABLES Performing Organization Address [facility] Co de Phone Number [facility] [place] [address] * Potassium (05/08/2023 4:00 PM EDT) Pathologist [facility] Potassium 3.9 3.5 - 5.0 mmol/L [facility] [...] Organization Address [facility] [place] [address] * Heparin (unfractionated) Level (05/08/2023 4:00 PM EDT) Pathologist [facility] UF Heparin 0.43 IU/mL [facility] Comment: Heparin (anti-Xa) levels should be [...] MD HEMATOLOGY ORDERAB LES Performing Organization Address City/[facility]/ZIP Co de Phone Number [facility] [place] [address] * EKG 12 Lead (05/08/2023 3:51 PM EDT) Ventricular rate 98 BPM MUSE SYSTEM Atrial Rate 98 BPM MUSE SYSTEM P-R Interval 150 ms MUSE SYSTEM QRS Duration 102 ms MUSE SYSTEM Q-T Interval 358 ms MUSE SYSTEM QTC Calculated (Bezet) 457 ms MUSE SYSTEM Calculated P Ringgold 38 degrees MUSE SYSTEM Calculated R [place] 48 degrees MUSE SYSTEM Calculated T Ring[place] -112 degrees MUSE SYSTEM INTERPRETATION Sinus rhythm with frequent and consecutive Premature ventricular and fusion complexes Septal infarct , age undetermined ST & T wave abnormality, consider anterolateral ischemia Abnormal ECG When compared with ECG of 09-NOV-2022 11:17, T wave inversion now evident in Anterolateral leads Confirmed by MD Harshil, Enrique Bell ([id number]) on 05/10/2023 8:11:46 AM MUSE SYSTEM 05/08/2023 3:51 PM EDT 05/10/2023 8:11 AM EDT Radha Hollins MD ECG ORDERABLES Performing Organization Address City/[facility]/ZIP Co de Phone Number MUSE SYSTEM * (ABNORMAL) Differential, Automated (05/08/2023 11:38 AM EDT) Neutrophil % 71.3 % [facility] Neutrophil Absolute 2.91 1.70 - 6.10 x10(3)/mc L [facility] Lymph % 19.1 % [facility] Lymphocytes Abs 0.8(L) 0.9 - 3.2 x10(3)/mc L [facility] Monocyte % 9.0 % [facility] Monocyte Abs 0.4 0.3 - 0.9 x10(3)/mc L [facility] Eos % 0.2 % [facility] Eosinophils Abs 0.0 0.0 - 0.4 x10(3)/[facility] Basophil % 0.2 % [facility] Baso Absolute 0.0 0.0 - 0.1 x10(3)/[facility] Immature Gran % 0.20 % [facility] Comment: Immature granulocytes(IG's)percentage and absolute count will include metamyelocytes, myelocytes, and promyelocytes. Blood smears from CBCs yielding IG's will be scanned manually for concordance. If this scan disagrees with the automated IG or if promyelocytes are noted, a manual differential will be performed. Immature Gran Absolute 0.01 0.00 - 0.04 x10(3)/[facility] Blood 05/08/2023 11:3 8 AM EDT 05/08/2023 11:44 AM EDT Narrative Resulting Agency Comment Spec In Lab Lincoln Sal MD HEMATOLOGY ORDERA BLES [facility] [place] [address] * (ABNORMAL) Hemogram (05/08/2023 11:38 AM EDT) White Blood Cell 4.1 4.0 - 9.5 x10(3)/[facility] Red Blood Cell 3.05(L) 4.00 - 5.21 x10(6)/[facility] Hemoglobin 10.2(L) 11.7 - 15.5 g/dL [facility] Hematocrit 29.6(L) 35.7 - 45.8 % [facility] Mean Cell Volume 97.0(H) 82.6 - 94.4 fL [facility] Mean Cell Hemoglobin 33.4(H) 27.1 - 32.0 pg [facility] Mean Cell Hemoglobin Concentration 34.5 31.7 - 35.0 g/dL [facility] Platelet 136(L) 145 - 357 x10(3)/[facility] RDW Standard Deviation 44.3 37.0 - 46.0 fL [facility] RDW coefficient of variation 12.6 11.5 - 14.1 % [facility] Mean Platelet Volume 9.4 7.6 - 12.9 fL [facility] NRBC% auto 0.0 % [facility] NRBC Absolute 0.000 0.000 - 0.000 x10(3)/mc L [facility] Blood 05/08/2023 11:3 8 AM EDT 05/08/2023 11:44 AM EDT Narrative Resulting Agency Comment Spec In Lab Lincoln Sal MD HEMATOLOGY ORDERA BLES Performing Organization Address City/[facility] Co de Phone Number [facility] [place] [address] * TSH (05/08/2023 11:38 AM EDT) Thyroid Stimulating Hormone 1.27 0.27 - 4.20 mcIU/mL [facility] Comment: Reference Interval (mcIU/mL): Females: ??First Trimester: 0.23-3.88 ??Second Trimester: 0.22-3.90 ??Third Trimester: 0.44-4.66 Blood 05/08/2023 11:3 8 AM EDT 05/08/2023 11:44 AM EDT Narrative Resulting Agency Comment Spec In Lab Enrique Chua MD CHEMISTRY ORDERABLES Performing Organization Address [facility] Co de Phone Number [facility] [place] [address] * (ABNORMAL) Phosphorus (05/08/2023 11:38 AM EDT) Phosphorus 4.7(H) 2.5 - 4.5 mg/dL [facility] Blood 05/08/2023 11:3 8 AM EDT 05/08/2023 11:44 AM EDT Narrative Resulting Agency Comment Spec In Lab Enrique Chua MD CHEMISTRY ORDERABLES Performing Organization Address [facility] Co de Phone Number [facility] [place] [address] * Magnesium (05/08/2023 11:38 AM EDT) Magnesium 0.76 0.69 - 1.07 mmol/L [facility] Blood 05/08/2023 11:3 8 AM EDT 05/08/2023 11:44 AM EDT Narrative Resulting Agency Comment Spec In Lab Enrique Chua MD CHEMISTRY ORDERABLES [facility] [address] [place] [address] * (ABNORMAL) Basic Metabolic Panel (non-fasting) (05/08/2023 [...] In Lab Enrique Chua MD CHEMISTRY ORDERABLES [facility] [place] [address] * ECHO COMPLETE (05/08/2023 11:02 AM EDT) EF 25 HEARTAudiam SYSTEM Anatomical Region Laterality Modality Cardiac Other 05/08/2023 10:0 3 AM EDT Narrative 05/08/2023 11:51 AM EDT ? Echocardiogram Report Name: PURNIMA THACKER ?Study Date: 05/08/2023 10:03 AMBP: 92/64 mmHg ? Patient Location: [facility]^CV29^A : 1955 ? Height: 155 cm ? Account: [id number] Age: 67 yrs ? Weight: 78 kg [...] worsening stenosis. Mitral regurgitation is similar. Procedure Complete-[id number]. Satisfactory quality. There is normal sinus rhythm. [...] mmHg Patient Location:[facility]^CV29^A : 1955 Height: 155 cm Account: [id number] Age: 67 yrs Weight: 78 kg Gender: [...] suggestsworsening stenosis. Mitral regurgitation is similar. Procedure Complete-[id number]. Satisfactory quality. There is normal sinus rhythm. 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 Rate/Dose Verify 05/17/2023 8:00 AM [...] patient on 81 mg of aspirin? Yes 08 (Given - Provider: Gabino Calhoun, VALDO)2053 (Given - Provider: Favian Mckeon, RN) 831 (Given - Provider: Kia Gallego, RN)2012 (Given - Provider: Favian Mckeon, RN) 826 (Given - Provider: Kia Gallego, [...] Routine documented in this encounter Care Teams Veterinary Nurse Relationship Specialty Start Date End Date Magdalena Acosta MD [address] [place] [address] PCP - General Family Medicine 02/05/23 documented as of this encounter
--- OUTSIDE RECORDS SUMMARY | 2024-05-23 14:06 | XMS_ITS | Encounter Summary ---
Author Organization [facility] [place] [address] Care Team Providers Care Sheet Rocker Name Role Phone Magdalena Acosta MD Primary Care Provider [phone] Encounter Details Date Type Department Care Team [...] PM EST Hospital Encounter [facility] [place] [address] Markel Borjas MD [facility] [address] [place] [address] 06/05/2024 2:00 PM EST - 06/05/2024 3:00 PM EST Surgery [facility] [place] [address] Markel Borjas MD [facility] [address] [place] [address] (OSC MSURG) BONE MARROW BIOPSY AND ASPIRATION; DIAGNOSTIC (WRVU 1.44) 06/23/2024 2:00 PM EST Office Visit [place] [address] Markel Borjas MD [facility] [address] [place] [address] 03/01/2025 4:15 PM EDT Office Visit Dermatology at [place] [address] [place] [phone] Marek Bonilla MD [address] [place] [address] Scheduled Procedures Name Priority Associated Diagnoses Date/Ti me (OSC MSURG) BONE MARROW BIOPSY AND ASPIRATION; DIAGNOSTIC (WRVU 1.44) Anemia, in pt with longstanding neutropenia 06/05/2024 2:00 PM EST documented as of this encounter Visit Diagnoses Not on filedocumented in this encounter Care Teams Sheet Rocker Relationship Specialty Start Date End Date Magdalena Acosta MD [address] [place] [address] PCP - General Family Medicine 02/05/23 documented as of this encounter
--- OUTSIDE RECORDS SUMMARY | 2024-05-23 14:07 | XMS_ITS | Encounter Summary ---
Author Organization [place] [address] Care Team Providers Care Cement Handler Name Role Phone Magdalena Acosta MD Primary Care Provider [phone] Encounter Details Date Type Department Care Team (Late st Contact Info) Description 05/08/2023 [place] [phone] Luis Felipe Ott MD [facility] [address] Social History Tobacco Use Types Packs/Day Years [...] 0426 Referring Provider: Nitesh Baltazar Patient Location: [facility] Presenting Symptoms per OSH: 67 year old [...] diuresis with IV furosemide 20 x 1 ([id number] at rheumatology appointment), SpO2 85% on RA -> 95% on 2L NC, HR 120s. Examination significant for decreased breath sounds at the bases. Pertinent Diagnostic Findings: CBC - Hgb 10.5 CMP - Cr 1.1 BNP 50223 HsTrop 1358 Lactate 1.6 D-dimer 1183, CTPE [...] examined this patient. Luis Felipe Ott MD [employer] Received a call from provider emergently at 715am. Mentating well and BP 87/53. HR 108 and diursingwell. They were about to start phenylephrine which I stressed was not a good option given concern for severe and increasing afterload. She is warm on exam, mentating and urinating and we do not need to amrit a BP if those things remain stable. Nico Segura, PGY-6 [employer] [id number] documented in this encounter Plan of Treatment Upcoming Encounters Date Type Department Care Team (Late st Contact Info) Description 06/05/2024 2:00 PM EST Hospital Encounter [place] [address] Markel Borjas MD [facility] [address] [place] [address] 06/05/2024 2:00 PM EST - 06/05/2024 3:00 PM EST Surgery Outpatient Surgery Center [facility] [place] [address] Markel Borjas MD [facility] [address] [place] [address] ([facility]C MSURG) BONE MARROW BIOPSY AND ASPIRATION; DIAGNOSTIC (WRVU 1.44) 06/23/2024 2:00 PM EST Office Visit Hematology [place] [phone] Markel Borjas MD [facility] [address] [place] [address] 03/01/2025 4:15 PM EDT Office Visit Dermatology at [place] [address] [place] [phone] Marek Bonilla MD [address], [place] [address] Scheduled Procedures Name Priority Associated Diagnoses Date/Ti me (OSC MSURG) BONE MARROW BIOPSY AND ASPIRATION; DIAGNOSTIC (WRVU 1.44) Anemia, in pt with longstanding neutropenia 06/05/2024 2:00 PM EST documented as of this encounter Visit Diagnoses Not on filedocumented in this encounter Care Teams Cement Handler Relationship Specialty Start Date End Date Magdalena Acosta MD [address] [place] [address] PCP - General Family Medicine 02/05/23 documented as of this encounter
--- OUTSIDE RECORDS SUMMARY | 2024-05-23 14:07 | XMS_ITS | Encounter Summary ---
[place] [address] Care Team Providers Care Quality Assurance Supervisor Final Name Role Phone Magdalena Acosta MD Primary Care Provider [phone] Reason for Visit * Auth/Cert (Routine) Specialty Diagnoses / Procedures Referred By Contac t Referred To Contact Diagnoses Symptomatic severe aortic stenosis with low ejection fraction NSTEMI, CHF Enrique Chua MD [facility] [place] [address] [facility] Referral ID Status Reason Start Date Expiration Date Visits Re quested Visits Authorized [id number] 1 1 Encounter Details Date Type Department Care Team (Late st Contact Info) Description 05/12/2023 2:50 PM EDT - 05/12/2023 3:50 PM EDT [place] [address] Antelmo Sharma MD [facility] [place] [address] CARDIAC CATHETERIZATION Social History Tobacco Use Types [...] Patient Age: 67 y.o. Birthdate: 1955 Language: Pashto Race: White Ethnicity: Not nor Admit Date: 05/08/2023 Discharge Date: 05/22/2023 Attending Physician: Alirio Hudson MD Follow-up Recommendations for Providers: Please continue routine management of cardiovascular risk factors including blood pressure, lipids,glucose, etc. Please note any medication changes. Patient to follow up with PCP, Magdalena Acosta MD, or Primary Cesspool Cleaner, Avis Mejia MD, in ~ 7-10 days. Patient to follow up with Pet Resort Concierge, Dr. Antelmo Sharma, in 2 weeks with an EKG, Echo, CBC, and CMP. Patient to follow up with Nephrology, their office to arrange. Kqdu-Zvlsmb-pt interval: After initial 30 day follow-up appointment , all TAVR patients will follow-up again in one year with an echo. 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 Secondary Diagnoses: Active Hospital Problems Diagnosis S/P TAVR (transcatheter aortic valve replacement) Cardiogenic shock Symptomatic severe aortic stenosis with low ejection fraction Mild coronary artery disease by [facility] 11/09/2022 Heart failure with reduced [...] Tube Placement Right 05/18/2023 Laure Ricks PA [facility] INTERVENTIONL RAD PRG CATH PLMT LEFT HEART CATH & ARTS W/INJ & ANGIO IMG S&I N/A 11/09/2022 CORONARY ANGIOGRAPHY; W [facility],POSSIBLE PCI (WRVU 5.6) performed by Mario Alberto Escobedo MD at [facility] CATH LABS PRG COMBINED RIGHT & LEFT HEART CATH W/INJ L VENTRICULOGRAPHY, IMG S&I N/A 05/12/2023 COMBINED RIGHT & LEFT HEART CATH,INC INJ FOR L VENTRICULOGRAPHY (WRVU 5.99) performed by Antelmo Sharma MD at [facility] CATH LABS PRO AORTOPLAS FOR SUPRAVALV STEN N/A 09/21/2016 @AORTOPLASTY FOR SUPRAVALVULAR STENOSIS (WRVU 29.33) performed by Alirio Hudson MD at [facility] MAIN OR PRO REPLACE AORTIC VALVE (TAVR/FEDERICO)PERC FEMORAL ARTERY APPROACH 05/12/2023 @TRANSCATHETER AORTIC VALVE REPLACEMENT (TAVR), PERCUTANEOUS FEMORAL (WRVU 22.47) performed by Alirio Hudson MD at [facility] CATH LABS PRO REPLACEMENT PROSTHETIC AORTIC VALVE OPEN W CARDIOPULMONARY BYPASS HOMOGRF/STENT N/A 09/21/2016 @REPLACE AORTIC VALVE, OPEN, W\CPB, W\PROSTHETIC VALVE (WRVU 41.32) performed by Alirio Hudson MD at [facility] MAIN OR Prior To Admission Medications [...] Major Procedures/Operations: 05/12/23: Successful right transfemoral TAVR Bhxlu-bp-Tjwms with a 23 mm Lai 3 THV. [...] TAVR and she was brought to the hoisting laborer the following morning where Drs. Alirio [...] if you have questions. Please call your Pet Resort Concierge's office if you have any discharge or drainage from your procedural sites. Your Pet Resort Concierge, Dr. Antelmo Sharma and/or the Defense Attorney may be reached at . Antibiotic prophylaxis: You will need to take antibiotics prior to many invasive tests and treatments, such as dental cleaning, which should be done every 6 months. Your primary care physician or your dentist can prescribe this medication. Please refer to the card with the [place] [employer] Guidelines for more information. You have been provided with a copy of this card. Please refer to the [place] [employer] Guidelines for more information. Good [...] should resume a low fat, low cholesterol, [place] [employer] Diet Driving: No restrictions. Shower/Bath: You may shower daily. No baths, soaking, or swimming for the first week. Wound care: Wash the sites daily with soap and rinse well, pat dry. Assess for any signs of infection such as increased redness, pain, warmth or drainage. Please call your smoke tester's office if you have any discharge or drainage from your procedural sites. If there is a lot of swelling, apply mamta wraps during the day and remove at bedtime. Elevate your legs when you are sitting. Home oxygen therapy: N/A Follow up appointments: Please schedule a follow-up appointment with your PCP, Magdalena Acosta MD, or Primary Cesspool Cleaner in ~ 7-10 days. You have a follow-up appointment with your Pet Resort Concierge, Dr. Antelmo Sharma, in 2 weeks with an EKG, Echo, and labs prior to your appointment. You will need follow-up with Nephrology, their office will arrange. Caca-Stzeqc-ss interval: After initial 30 day follow-up appointment [...] [facility] [place]rive at: [employer] Processor Area [phone] 02/11/2024 2:00 PM Marek Bonilla MD Dermatology at [place] Arrive at: [facility] [address] [phone] Future Orders Complete By Expires Type and Screen Future Surgery, [facility] SAME DAY PROGRAM ONLY) [[id number] Custom] 05/11/2023 Process Instructions: This test is intended ONLY for patients with upcoming surgery for testing prior to the day of surgery obtained through the same day program (4V or SDP). For ALL OTHER PATIENTS, order a Type and Screen (JEQ317) This order includes the physician order for an ABO Recheck if requested by the Blood Bank. Scheduling Instructions: Comments: Questions: Date of surgery: CBC (with Diff) [VEJ505 Custom] 06/05/2023 12/05/2023 Process Instructions: INCLUDES: WBC, RBC, Hgb, Hct, Platelets, RBC Indices and Differential Scheduling Instructions: Comments: Questions: Comprehensive metabolic panel (non-fasting) [LAB17 Custom] 06/05/2023 08/20/2023 Process Instructions: INCLUDES: Calcium, T Protein, Albumin, AST, ALT, Alk Phos, T Bili, BUN, Creat, GFR, Glucose, Lytes. Scheduling Instructions: Comments: Questions: Echocardiogram Transthoracic [48967 CPT(R)] 06/05/2023 12/05/2023 Process Instructions: Scheduling Instructions: Questions: Where will study be performed?: [facility] Does the patient have Congenital Heart Disease?: Does patient require sedation?: GA rationale: EKG 12 Lead [08931 CPT(R)] 06/05/2023 12/05/2023 Process Instructions: Scheduling Instructions: Questions: Which location will this be performed?: [place] Is a rhythm strip needed?: No [facility] [employer] [EQ161 Custom] As directed Process Instructions: Scheduling Instructions: Questions: Device Needed: WALKER (E0143) Patient Height (cm): 154.9 cm (5' 0.98) Patient Weight: 75.4 kg (166 lb 3.2 oz) Diagnosis: Unsteady gait when walking Referral to Cardiac Rehab [RKQ594 Custom] As directed Process Instructions: If no [...] FOR VNA SERVICES PATIENT'S LOCATION: Purnima Thacker [address] [place] [address] [phone] (home) Knife Setter Grinder Machine's Name: Irineo and brother Raymond In discussion with the attending physician, it is certified that this patient is under his/her careand that MD, or an FLORAL DEPARTMENT SPECIALIST, DIRECTOR MEDICARE SALES, or PA who is working directly with him/her, had a cxio-ec-fnnp encounter that meets the physician pnpt-ef-tobx encounter requirements with this patient on 05/22/2023. [...] for managing ADLs. HOME HEALTH CARE AGENCY: [facility]. [address] [facility] [address] PHONE: [phone] FAX: [phone] Start of care: Ideally 24-48 hours after [...] patient's PCP: Magdalena Acosta MD [address] [facility] [phone] All VNA agencies which cover the area [...] Surgery Date: 05/22/2023 CC: Magdalena Acosta MD Mustang RidgeMario Alberto maxwell MD [address] [place] [address] [place] [address] documented in this encounter Discharge Instructions * Patient Instructions* Vinod Juárez PA - 05/22/2023 9:32 AM EDT TAVR Discharge Instructions: Call your doctor if: You have a fever of greater than 101 degrees, shaking chills, if you develop redness or drainage from your procedure sites, or if you have questions. Please call your Pet Resort Concierge's office if you have any discharge or drainage from your procedural sites. Your Pet Resort Concierge, Dr. Antelmo Sharma and/or the Defense Attorney may be reached at . Antibiotic prophylaxis: You will need to take antibiotics prior to many invasive tests and treatments, such as dental cleaning, which should be done every 6 months. Your primary care physician or your dentist can prescribe this medication. Please refer to the card with the [place] [employer] Guidelines for more information. You have been provided with a copy of this card. Please refer to the [place] [employer] Guidelines for more information. Good [...] should resume a low fat, low cholesterol, [place] [employer] Diet Driving: No restrictions. Shower/Bath: You may shower daily. No baths, soaking, or swimming for the first week. Wound care: Wash the sites daily with soap and rinse well, pat dry. Assess for any signs of infection such as increased redness, pain, warmth or drainage. Please call your smoke tester's office if you have any discharge or drainage from your procedural sites. If there is a lot of swelling, apply mamta wraps during the day and remove at bedtime. Elevate your legs when you are sitting. Home oxygen therapy: N/A Follow up appointments: Please schedule a follow-up appointment with your PCP, Magdalena Acosta MD, or Primary Cesspool Cleaner in ~ 7-10 days. You have a follow-up appointment with your Pet Resort Concierge, Dr. Antelmo Sharma, in 2 weeks with an EKG, Echo, and labs prior to your appointment. You will need follow-up with Nephrology, their office will arrange. Zvtm-Zsfshr-vp interval: After initial 30 day follow-up appointment [...] ins ( te) Haven Ba, PT Pager: [phone] Physical Therapy Inpatient Rehabilitation Department * Nico [...] 0600 and on the weekends please page [phone]. * Jory Paniagua - 05/20/2023 3:52 PM [...] vomiting Last Bowel Movement: 05/20/23 Jory Paniagua Bone Density Technician * Tong Mike, OT - 05/20/2023 3:16 [...] Tube Placement Right 05/18/2023 Laure Ricks PA [facility] INTERVENTIONL RAD PRG CATH PLMT LEFT HEART CATH & ARTS W/INJ & ANGIO IMG S&I N/A 11/09/2022 CORONARY ANGIOGRAPHY; W [facility],POSSIBLE PCI (WRVU 5.6) performed by Mario Alberto Escobedo MD at [facility] CATH LABS PRG COMBINED RIGHT & LEFT HEART CATH W/INJ L VENTRICULOGRAPHY, IMG S&I N/A 05/12/2023 COMBINED RIGHT & LEFT HEART CATH,INC INJ FOR L VENTRICULOGRAPHY (WRVU 5.99) performed by Antelmo Sharma MD at [facility] CATH LABS PRO AORTOPLAS FOR SUPRAVALV STEN N/A 09/21/2016 @AORTOPLASTY FOR SUPRAVALVULAR STENOSIS (WRVU 29.33) performed by Alirio Hudson MD at [facility] MAIN OR PRO REPLACE AORTIC VALVE (TAVR/FEDERICO)PERC FEMORAL ARTERY APPROACH 05/12/2023 @TRANSCATHETER AORTIC VALVE REPLACEMENT (TAVR), PERCUTANEOUS FEMORAL (WRVU 22.47) performed by Alirio Hudson MD at [facility] CATH LABS PRO REPLACEMENT PROSTHETIC AORTIC VALVE OPEN W CARDIOPULMONARY BYPASS HOMOGRF/STENT N/A 09/21/2016 @REPLACE AORTIC VALVE, OPEN, W\CPB, W\PROSTHETIC VALVE (WRVU 41.32) performed by Alirio Hudson MD at [facility] MAIN OR Social History: Patient lives alone. Home Setup: Pt lives on one level with tub shower and three steps to enter. DME: none used MOTOR LODGE CLERK Baseline ADL/Mobility: Independent with ADLs and IADLs. [...] WFL Vision & Perception: corrective lenses multimedia instructional designer Communication: WFL Range of motion, strength, [...] Discharge Disposition (OT): swing bed rehabilitation facility, half-way facility(vs home with support for IADLs) Other [...] Discharge planning. Total Minutes, Occupational Therapy: 28 ([id number]) OT Evaluation Code Rationale: Diagnosis & Pertinent Co-Morbidities affecting Plan of Care: see PMHx Occupational Profile & Client History: Brief Expanded Extensive x Assessment of Occupational Performance: 1-3 performance deficits 3-5 performance deficits x 5 + performance deficits Clinical Decision Making: Low Moderate High x Clinical decision making of moderate complexity using standardized patient assessment instrument and measurable assessment of functional outcome. Pager: [phone] TONG MIKE OT 05/20/2023 Occupational Therapy Rehabilitation [...] 0600 and on the weekends please page [phone]. * Rylie Rodriguez MD - 05/19/2023 3:59 [...] off. Please page if further consultation required. Rlyie Rodriguez MD, MPH Internal Medicine, PGY-1 Nephrology Service Associated attestation - Cynthia Blackburn MD - 05/20/2023 12:51 PM EDT The patient was seen and examined with the resident, Dr. Rodriguez. Please see the resident's note from today for details. I have reviewed the resident's note and agree with the exam, and assessment and plan. Cynthia Blackburn MD Nephrology Pager: [phone] * Diana Espino - 05/19/2023 1:49 PM EDT Dry Goods Clerk Encounter Note Patient Name: Purnima Thacker : [id number] MR#: [id number] Admit Date: 05/08/2023 9:14 AM Hospital Day [...] returning home alone. Anticipated Discharge Disposition (PT): half-way facility, swing bed rehabilitation facility Consult Recommendations: [...] as stated. Total Minutes, Physical Therapy: 38 (2043-1203) Henrik Navarrete MOTOR LODGE CLERK Pager: [phone] Physical Therapy Inpatient Rehabilitation Department * Nico [...] 0600 and on the weekends please page [phone]. * Laure Ricks PA - 05/19/2023 7:56 [...] Ricks PA-C Interventional Radiology IR Team Pager [phone] * Consuelo Espinoza RN - 05/18/2023 4:13 PM EDT ANGIO NURSING DATABASE Name: Purnima Thacker Date of : 1955 AGE: 67 y.o. Address: [address] [place] [phone] (home) Mobile: No relevant phone numbers on [...] and plan. Cynthia Blackburn MD Nephrology Pager: [phone] * Magdalena Puri, SENIOR OUTSIDE SALES REPRESENTATIVE - 05/18/2023 10:51 AM EDT Images from the original note were not included. [facility] [place] [place] [address] [address] STRUCTURAL HEART DISEASE CONSULTATION NOTE PRIMARY CARE [...] stenosis. She is now status post TAVR Jnczm-fa-Sxqtl with a 23 mm Lai 3 THV 05/12/[address] Sharma. Preliminary findings: Successful right transfemoral TAVR Byrcg-zg-Xbaip with a 23 mm Ali 3 THV. [...] by [facility] 11/09/2022 Heart failure with reduced [...] tablet 2 tablet 2 tablet Oral Daily ProspectMara ernandez APRN 2 tablet at 05/16/232 bisacodyL (Dulcolax) suppository 10 mg 10 mg Rectal Daily PRN ProspectMara ernandez APRN melatonin tablet 6 mg 6 [...] stenosis. She is now status post TAVR Ooohp-ix-Xewuy with a 23 mm Ali 3 THV [...] Magdalena Puri APRN Structural Heart Team Pager [phone] Team Office Please see addendum by Dr. Sharma for final plan and recommendations Associated attestation - Antelmo Sharma MD - 05/19/2023 10:52 PM EDT I have reviewed Magdalena Puri APRN's above history and I agree with the details as written. The assessment and plan were formulated in discussion with me and I agree with them as documented. Antelmo Sharma MD Pager [phone] * Nico Palacios PA - 05/18/2023 8:13 [...] 0600 and on the weekends please page [phone]. * Loli Hernandez, PT - 05/17/2023 5:27 [...] returning home alone. Anticipated Discharge Disposition (PT): half-way facility, swing bed rehabilitation facility Consult Recommendations: [...] plan as stated. Time IN / OUT: 6459-3703 Total Minutes, Physical Therapy: 54 Billing Code: te-sx2, te-f, angely LOLI HERNANDEZ PT Pager: [phone] Physical Therapy Inpatient Rehabilitation Department * Cynthia [...] Well controlled. Cynthia Blackburn MD Nephrology Pager: [phone] * Mara Serrano, SENIOR OUTSIDE SALES REPRESENTATIVE - 05/17/2023 8:26 AM EDT Cardiac Surgery [...] 0600 and on the weekends please page [phone]. * Guerda Del Valle - 05/16/2023 10:44 AM EDT Nutrition Services Note - Low Nutrition Acuity Purnima Thacker is a 67 y.o. female Reason for intervention: hospital day 9 Nutrition Plan: Continue diet order Encourage good PO Lasix and Zofran noted Added special serve: open containers Monitor weight Patient scheduled for a hospital day 9 nutrition evaluation. Department Traffic Freight Router met with pt at bedside. Pt reports that her appetite and PO has much improved since admission. Denies nausea/vomiting or trouble chewing/swallowing. Department Traffic Freight Router provided snack list but pt not interested in adding snacks at this time. Her only concern was that she is worried that she will eat too much which will cause too much pressure in her stomach. Department Traffic Freight Router assured pt and suggested eating smaller but [...] Last Bowel Movement: 05/10/23 Guerda Del Valle Bone Density Technician * Vinod Juárez PA - 05/16/2023 [...] 0600 and on the weekends please page [phone]. * Michael Jeffers MD - 05/16/2023 8:11 AM EDT Images from the original note were not included. Hypertension-Nephrology Inpatient Follow-up Purnima Thacker [id number] 1955 ID: 67 y.o. old female seen [...] IRONSAT 12 (L) 05/16/2023 SFOLATE >20.0 07/03/2022 [id number] 07/03/2022 Lab Results Component Value Date [...] Dr. Ayoub. Please contact me at phone: [phone] or pager: [phone] with any questions. Michael Jeffers MD Nephrology [...] -Nephrology consulted, labs and renal US ordered -Southaven removed, ambulated around the unit -bilateral pleural [...] 0600 and on the weekends please page [phone]. * Hortencia Cody MD - 05/15/2023 2:07 [...] not included. Hypertension-Nephrology Inpatient Follow-up Purnima Thacker [id number] 1955 ID: 67 y.o. old female seen [...] HGB 7.8 (L) 05/13/2023 SFOLATE >20.0 07/03/2022 [id number] 07/03/2022 Lab Results Component Value Date [...] Dr. Ayoub. Please contact me at phone: [phone] or pager: [phone] with any questions. Michael Jeffers MD Nephrology [...] last 720 hours. T/L/D Art ETT CVL [place] ASSESSMENT, MANAGEMENT, and DECISION MAKIN y.o. female [...] and weak.?? Objective: Pt seen in the [facility] for initial evaluation. Pt in chair [...] outlined inthis evaluation. HAVEN BA, PT Pager: [phone] Physical Therapy Inpatient Rehabilitation Department Time IN / OUT: 1274-4461 Total time: Total Minutes, Physical Therapy: 30 [...] 0600 and on the weekends please page [phone]. * Antelmo Sharma MD - 05/14/2023 7:56 AM EDT Images from the original note were not included. [facility] [place] [place] [address] [address] STRUCTURAL HEART DISEASE CONSULTATION NOTE PRIMARY CARE [...] stenosis. She is now status post TAVR Ddaqz-hs-Simqg with a 23 mm Lai 3 THV 05/12/[address] Sharma. Preliminary findings: Successful right transfemoral TAVR Zsrep-op-Lxyea with a 23 mm Lai 3 THV. [...] by [facility] 11/09/2022 Heart failure with reduced [...] stenosis. She is now status post TAVR Aukic-sk-Vproq with a 23 mm Lai 3 THV 05/12/[address] Sharma. Janet TAVR case notable for coronary LAD protective MINNA. Status post TAVR, the patient was transferred to [facility] for pressor and inotropic support. Pressors weaned overnight 05/12. Cardiac indices by thermodilution remained >3 with continued Milrinone 0.125 mcg/kg/min prior to PAC removal. EKG todayNSR with stable NE/QRS intervals. Hemoglobin slowly down-trending (8.2-> 7.8-> 7.2). [...] Brody Kaplan APRN Structural Heart Team Pager [phone] Team Office Please see addendum by Dr. [...] heart failure, ATN from cardiogenic shock, and DYLNA with her contrast exposure. Nephrology consultationtoday. Antelmo Shamra MD Pager [phone] * Antelmo Cardenas RN - 05/14/2023 5:18 AM EDT Pt AOx4, complaining of mild/moderate generalized pain (states her Meloxicam is effective at home) currently refusing prn oxycodone. NAEON, hemodynamically stable on Milrinone, Maps >65, ST in snb407's down to NSR with frequent multifocal PVC's. [...] original note were not included. [facility] [place] [place] [address] [address] STRUCTURAL HEART DISEASE PROGRESS NOTE PRIMARY CARE [...] stenosis. She is now status post TAVR Sjhal-fr-Icigc with a 23 mm Lai 3 THV 05/12/[address] Sharma. Preliminary findings: Successful right transfemoral TAVR Fopyi-ro-Llvmm with a 23 mm Lai 3 THV. [...] or perforation. Interval Events: - Transferred to [facility] post- TAVR for pressor/inotropic support (Levo, [...] by [facility] 11/09/2022 Heart failure with reduced [...] stenosis. She is now status post TAVR Zsusb-ge-Edsoh with a 23 mm Lai 3 THV 05/12/[address] Sharma. Janet TAVR case notable for coronary LAD protective MINNA. Status post TAVR, the patient was transferred to [facility] for pressor and inotropic support. Pressors weaned overnight. Cardiac indices by thermodilution remain greater than 3 with continued Milrinone 0.125 mcg/kg/min. EKG today NSR with stable NE/QRS intervals. Hemoglobin 7.8 today from 8.5, likely [...] Brody Kaplan APRN Structural Heart Team Pager [phone] Team Office Please see addendum by Dr. [...] DAPT moving forward. Antelmo Sharma MD Pager [phone] * Bonita Miguel PA - 05/13/2023 8:30 AM EDT Cardiac Surgery Progress Note Purnima Thacker is a 67 y.o. 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 PMH of s/p tissue AVR (2017), mixed connective tissue disease HTN, HLD, NICOLAS, diverticulosis, rosacea, essential tremor, and depression. 24h Events: From hoisting laborer for above procedure Extubated at ~1600 [...] soft b/l, no evidence of hematoma. Tubes/Lines/Drains: Southaven, RIJ, A-line, Art, PIV Assessment/Plan: 67 y.o. [...] 0600 and on the weekends please page [phone]. * Onelia Schwartz MD - 05/12/2023 1:44 [...] by [facility] 11/09/2022 Heart failure with reduced [...] FiO2 weaned to 40%. 1105: ABG 7.34/42/73/22 3957-5442: SBT performed and passed on these settings [...] PCP: Magdalena Acosta MD PCP phone number: [phone] Date of Admission: 05/08/2023 ( Hospital Day [...] 1447 PHART -- 7.34* 7.34* -- -- MGO3TBG -- 30* 30* -- -- PO2ART -- 72* 81* -- -- UYO4TNY -- 16.0* 15.7* -- -- LACTATEVEN 2.4* 2.7* 2.7* 4.8* 2.9* VBG (Venous Blood Gas) Recent Labs 05/12/23 0700 05/12/2331705/12/2310505/11/23193905/11/23 144 LACTATEVEN 2.4* 2.7* 2.7* 4.8* 2.9* Mixed Venous Sat Recent Labs 05/12/23 0508 05/12/23 0321 05/12/23 0114 05/12/23 0030 [id number] 30.7 32.7 37.3 25.1 Objective: Vitals Last [...] who have questions please contact the health lpn care manager that requested your imaging first. Electronically signed by: ALIX RUVALCABA MD, [facility] ([phone]), at 05/10/2023 1:[address] Cardiac for [...] who have questions please contact the health lpn care manager that requested your imaging first. Electronically signed by: Cullen Narayanan MD, [facility] ([phone]), at 05/11/2023 4:[address] Angiogram Abdomen [...] who have questions please contact the health lpn care manager that requested your imaging first. Electronically signed by: Eileen Gomes MD, [facility] ([phone]), at 05/11/2023 2:42 PM XR Chest One [...] who have questions please contact the health lpn care manager that requested your imaging first. [...] who have questions please contact the health lpn care manager that requested your imaging first. [...] and inotrope. She is planned for a vdkta-ck-csath TAVR this morning, which should hopefully improve [...] MD, FACP, FACC Section of Cardiovascular Medicine [facility] Knifer Upchemical technician [facility] * Noreen Deutsch RN - 05/12/2023 5:21 [...] by [facility] 11/09/2022 Heart failure with reduced [...] 05/11/2023 4:11 PM EDT Reported off to RUSSIAN RUBBER and pt transferred over in the bed for higher level of care. * Antelmo Sharma MD - 05/11/2023 9:45 AM EDT Images from the original note were not included. [facility] [place] [place] [address] [address] STRUCTURAL HEART DISEASE CONSULTATION NOTE PRIMARY CARE [...] who had been referred for possible TAVR zurjw-wv-wcloi evaluation. Her primary symptoms are of dyspnea [...] [facility]. 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 Hudson of her inpatient status, [employer] primary cardiac surgeon. Based on recent clinic visit, tentative plan had been for TAVR JANET issa ferrera given her chronological age. Cardiac cath 11/09/2022 notable for non-obstructive coronary disease. TAVR CTAs planned for today. Will review her case with cardiac surgery to determine best timing and therapies for her valve intervention. Addendum 05/11/2023 6:48 PM Due to decompensating HFrEF, she was transferred to [facility] this afternoon for further management. TAVR CT imaging support for adequate ileofemoral access. Given her acute deterioration today, will planfor RTF TAVR on 05/12/2023. Brody Kaplan APRN Structural Heart Disease Pager [phone] Please see addendum by Dr. Sharma for [...] signed and dated. Antelmo Sharma MD Pager [phone] * Harini Lance MD - 05/11/2023 6:06 AM EDT Images from the original note were not included. Cardiology Progress Note Patient info: Name: Purnima Thacker : 1955 PCP: Magdalena Acosta MD PCP phone number: [phone] Date of Admission: 05/08/2023 ( Hospital Day [...] who have questions please contact the health lpn care manager that requested your imaging first. Electronically signed by: ALIX RUVALCABA MD, [facility] ([phone]), at 05/10/2023 1:25 PM TTE: 05/08 -Left [...] by [facility] 11/09/2022 Hyperlipidemia, unspecified NICOLAS (obstructive [...] PCP: Magdalena Acosta MD PCP phone number: [phone] Date of Admission: 05/08/2023 ( Hospital Day [...] by [facility] 11/09/2022 Hyperlipidemia, unspecified NICOLAS (obstructive [...] PCP: Magdalena Acosta MD PCP phone number: [phone] Date of Admission: 05/08/2023 ( Hospital Day [...] Gas) No results found for: PHART, PO2ART, WOK5UFF, ZDG6ISN Microbiology: Microbiology Results (Last 30 days) No [...] by [facility] 11/09/2022 Hyperlipidemia, unspecified NICOLAS (obstructive [...] Surgical History: Procedure Laterality Date PRG CATH PLAL LEFT HEART CATH & ARTS W/INJ & ANGIO IMG S&I N/A 11/09/2022 CORONARY ANGIOGRAPHY; W [facility],POSSIBLE PCI (WRVU 5.6) performed by Mario Alberto Escobedo MD at [facility] CATH LABS PRO AORTOPLAS FOR SUPRAVALV STEN N/A 09/21/2016 @AORTOPLASTY FOR SUPRAVALVULAR STENOSIS (WRVU 29.33) performed by Alirio Hudson MD at [facility] MAIN OR PRO REPLACEMENT PROSTHETIC AORTIC VALVE OPEN W CARDIOPULMONARY BYPASS HOMOGRF/STENT N/A 09/21/2016 @REPLACE AORTIC VALVE, OPEN, W\CPB, W\PROSTHETIC VALVE (WRVU 41.32) performed by Alirio Hudson MD at [facility] MAIN OR Social History and Habits: [...] Surgical History: Procedure Laterality Date PRG CATH PLAL LEFT HEART CATH & ARTS W/INJ & ANGIO IMG S&I N/A 11/09/2022 CORONARY ANGIOGRAPHY; W [facility],POSSIBLE PCI (WRVU 5.6) performed by Mario Alberto Escobedo MD at [facility] CATH LABS PRO AORTOPLAS FOR SUPRAVALV STEN N/A 09/21/2016 @AORTOPLASTY FOR SUPRAVALVULAR STENOSIS (WRVU 29.33) performed by Alirio Hudson MD at [facility] MAIN OR PRO REPLACEMENT PROSTHETIC AORTIC VALVE OPEN W CARDIOPULMONARY BYPASS HOMOGRF/STENT N/A 09/21/2016 @REPLACE AORTIC VALVE, OPEN, W\CPB, W\PROSTHETIC VALVE (WRVU 41.32) performed by Alirio Hudson MD at [facility] MAIN OR Social History and Habits: [...] Hgb 10.5 CMP - Cr 1.1 BNP 05007 HsTrop 1358 Lactate 1.6 D-dimer 1183 Interval History Patient was admitted to [facility] due to concern on low BP [...] Code Status: Attempt Cardiopulmonary Resuscitation - Inpatient lKaudia Reid MD Internal Medicine PGY-1 Pager [phone], M1-S1 Service Associated attestation - Juan Luis Gonzalez MD - 05/08/2023 10:00 PM EDT Cardiology Attending Addendum Active Hospital Problems Diagnosis Symptomatic severe aortic stenosis with low ejection fraction Heart failure with reduced ejection fraction due to heart valve disease Mild coronary artery disease by [facility] 11/09/2022 Hyperlipidemia, unspecified History of [...] PCP: Magdalena Acosta MD PCP phone number: [phone] Date of Admission: 05/08/2023 ( Hospital Day [...] Hgb 10.5 CMP - Cr 1.1 BNP 46314 HsTrop 1358 Lactate 1.6 D-dimer 1183 Vasoactive [...] to the planned procedure. Hand Hygiene: The party director did perform hand hygiene prior to [...] Successful arterial line placement. Crispin Timmons MD Defense Attorney Associated attestation - Onelia Schwartz MD [...] (flow was non-pulsatile) and appearance of blood. [place]-Marily catheter was placed and locked at 55 [...] information for follow-up [facility], [place] [address] [place] [address] Cardiac Rehab, [address] [place] [address] [facility], [place] [address] [place] [address] Transportation: family or friend will provide *Brother [...] Type: *No Product type* / Secondary Insurance: [employer] [place] Prescription Coverage: Yes This plan was formulated with input from patient, family (please identify family/friend involved ifapplicable) and team. All are in agreement with plan. Aliza Martino MSN-Ed, RN ACM hospice superintendent Office of Care Management Pager #[phone] * Plan of Care - Favian Mckeon [...] 05/21/2023 4:46 PM [facility] [place] [facility] referral OFFICE OF CARE MANAGEMENT [...] Type: *No Product type* / Secondary Insurance: [facility] [place] Last Physical Therapy Recommendation: (Home with assist from Brother; Friend arriving Tues) with walker, front wheeled Last Occupational Therapy Recommendation: swing bed rehabilitation facility, half-way facility (vs home with support for IADLs) [...] geographic area. They have requested referrals to: [facility] [address] [place] [address] [facility] @ [place], [place] Note routed to a Web Developer who will communicate referrals to facilities and provide any required information. Transportation: family or friend will provide *Brother Raymond on Tuesday 05/22 at 1000 Barriers to discharge: Does not have home 22/02 assist available until tomorrow Tuesday 05/22 Plan going forward: Discharge home into the 22/02 home care of brother Raymond with [facility] and [facility] PT/OT services on Tuesday 05/22 [...] Attending: All Staff: Staff Role Juanita Almaguer Substitute Nurse Laure Ricks PA Physician Lotteries Agent Magdalena Rodriguez RN Radiology Nurse Consuelo Espinoza pin drafting machine tender Nurse Post-operative diagnosis/Indication: Right pleural [...] [facility] [place] Last Physical Therapy Recommendation: half-way facility, swing bed rehabilitation facility with to [...] Office of Care Management letter from the Table Filler pertaining to rehab referrals. provide a letter describing our affiliations within the [facility] and educate about their right to choose where referrals are sent. provide the CMS Star Quality Rating handout. review the different levels of rehab including SNF, swing, and acute. provide a list of facilities within their preferred geographic area. request that they provide at least three choices for referral. They have requested referrals to: [facility] [address] [place] [address] [facility] ([facility]) [address] [place] [address] (Accepts pts only after exhausting all other local SNF options) [facility] (Swing) ([facility]) [address] [place] [address] PHONE: [phone] FAX: [phone] [facility] (Swing) [facility]) [address] [place] [address] PHONE: [phone] FAX: [phone] Note routed to a Web Developer who will communicate referrals to facilities and [...] from the original note were not included. [facility] NEPHROLOGY/HYPERTENSION CONSULT NOTE PATIENT: Purnima Thacker [...] in her course. She ultimately underwent a sqzjr-pc-pmnep procedure on and tolerated it well (see operative details). [facility] on some [...] 1423 05/12/23 1105 PHART 7.39 7.37 7.34* QNS3VNL 33* 36 42 PO2ART 101 102 73* KGJ8OMC 19.5* 20.4 22.1 LACTATEVEN 1.5 1.8 2.8* JSI0GHJ 40 40 40 PFRATIOART2 252 255 182 VBG (Venous Blood Gas) Recent Labs 05/12/23 1557 05/12/23 1423 05/12/23 1105 LACTATEVEN 1.5 1.8 2.8* Mixed Venous Sat Recent Labs 05/12/23 1425 05/12/23 0508 05/12/23 0321 M1KTTF9 59.9 30.7 32.7 LFT's: Recent Labs 05/14/23 0110 05/13/23 0115 05/12/23 0600 BILITOT 0.4 0.5 0.9 BILIDIR -- 0.3 -- ALBUMIN 3.6 3.0* 3.5 ALKPHOS 86 85 100 ALT 437* 903* 1,174* AST 319* 792* 1,435* No results found for: UPROTCREAT No results found for: TPROTEINPEP, ALBELECT No results found for: MICROALBUR, CKKQ25QLR No results found for: HA1C Lab Results Component Value Date CALCIUM 8.5 05/14/2023 PHOS 4.7 (H) 05/08/2023 No results found for: 25OHVITD MICROBIOLOGY: ProcedureComponentValueUnitsDate/TimeUrine culture [[id number]]Collected: 05/11/23 192Lab Status: Final resultSpecimen: Clean Catch [...] consulted for assessment if this patient needs PALLETISER OPERATOR. Atthis time, we can likely hold off on PALLETISER OPERATOR. Her volume status appears sufficient and her metabolic kanwal angements with mild acidosis is not too profound. Patient does not have significant uremic symptoms. We can hold off for today, but the patient is a high risk candidate for needing PALLETISER OPERATOR in future daysespecially if her Cr curve trends the direction it is for the next several days. S/p Extwh-ot-Txnqm TF TAVR: Management per cardiology. On milrinone gtt. PLAN: - Please obtain following diagnostics: renal US, urinalysis, urine prot/Cr ratio, urine albumin/Cr ratio, CK, uric acid, serum osmol, daily VBGs - No acute indications for PALLETISER OPERATOR/dialysis. We will keep close eye on Cr trend, volume status, and metabolics to ensure patient still does not need PALLETISER OPERATOR as she ensues intrinsic renal recovery [...] M.H.Katherine., M.A. PGY-V Nephrology-Hypertension Fellow Page # [phone] [facility] [address] 2nd floor, Education Finance Processor [address] [place] [address] * Care Management - Mario Alberto Olmos [...] for a TAVR at 730. Returned to [facility] at 0945. Was intubated in the hoisting laborer due to agitation. Maintained bedrest for [...] Operative Note Patient Name: Purnima Thacker : [id number] MR#: [id number] Case Date: 05/12/2023 Surgeon: Surgeon(s) and Role: [...] procedure Note: Patient Name: Purnima Thacker : [id number] MR#: [id number] Case Date: 05/12/2023 Operators Surgeon: Surgeon(s) and [...] main with 4.0 x 30 mm Resolute [facility] Eluting Stent Perclose x1 + Angio-seal 8 Fr x1, RFA Manual pressure, LFA Manual pressure, LFV Endotracheal intubation (performed by cardiac anesthesia) Preliminary findings: Successful right transfemoral TAVR Iriue-hg-Cvewo with a 23 mm Lai 3 THV. [...] MD, M.Sc. Structural Heart Disease Fellow Pager :[phone] Antelmo Sharma MD Pager [phone] * Op Note - Alirio Hudson MD - 05/12/2023 7:37 AM EDT Preop Diagnosis: Severe aortic stenosis, symptomatic. Postop Diagnosis: Same. Procedure: Transfemoral TAVR procedure with 23mm valve. Surgeon: Alirio Hudson M.D. Cesspool Cleaner: Danny CULP Procedure: The patient was taken to the hoisting laborer. The patient had monitored anesthesia care. 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 [facility] [place] [address] [address] STRUCTURAL HEART DISEASE CONSULTATION NOTE PRIMARY CARE [...] who had been referred for possible TAVR cslis-gm-tnvdj evaluation. Her primary symptoms are of dyspnea [...] [facility]. 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 Pt voices shortness of breath at [...] VTE (Venous Thromboembolism) Risk Flowsheets (Taken 05/09/2023 2396) VTE Prevention/Management: anticoagulant therapy Intervention: Prevent Infection [...] listening utilized Taken 05/08/20231999 by Alivia Kauffman multi line claims adjuster/Support System Care: self-care encouraged support provided Problem: [...] surrogate would be surrogate decision maker per [place] surrogate decision making law. (Only good for 180 days) Any patient receiving care in [place] must abide by [place] law. The hierarchy for surrogate decision making [...] Home Address confirmed as: [address] [address] Social & Family Supports: All names listed [...] Prescription Coverage: Yes Preferred Pharmacy: updated to [facility] in [facility] [place] Status: Patient is a : No Primary Care Provider confirmed: Magdalena Acosta MD [phone] Patient/Caregiver Goals of Treatment: Potential Needs for [...] transition of care planning. Alie Bradshaw RN, Pager-[phone] * Plan of Care - Emily Lucero [...] PM EST Hospital Encounter [place] [address] Markel Borjas MD [facility] [address] [place] [address] 06/05/2024 2:00 PM EST - 06/05/2024 3:00 PM EST Surgery [place] [address] Markel Borjas MD [facility] DR [place] [address] (OSC MSURG) BONE MARROW BIOPSY AND ASPIRATION; DIAGNOSTIC (WRVU 1.44) 06/23/2024 2:00 PM EST Office Visit Hematology [place] [address] Markel Borjas MD [facility] [address] [place] [address] 03/01/2025 4:15 PM EDT Office Visit Dermatology at [place] [address] [address] Maerk Bonilla MD [address] [place] [address] Scheduled Procedures Name Priority Associated Diagnoses Date/Ti [...] Heart Cath W/Inj L Ventriculography, Img S&I (66578) 05/12/2023 7:37 AM EDT Aortic valve stenosis, [...] DOPP COLOR DOPP (07/08/2023 12:15 PM EST) [facility] EF 20 HEARTLAB SYSTEM Anatomical Region Laterality Modality Cardiac Other 07/08/2023 10:3 1 AM EST Narrative 07/08/2023 12:26 PM EST [address] [place] [address] ? Echocardiogram Report Name: PURNIMA THACKER ?Study Date: 07/08/2023 10:31 AMBP: 118/60 mmHg ? Patient Location: : 1955 ? Height: 155 cm ? Account: [id number] Age: 67 yrs ? Weight: 74 kg Gender: Female ?BSA: 1.7 m2 Ordering Physician: ALIRIO HUDSON Referring Physician: VINOD JUÁREZ Performed By: Felicia Norris RDCS Reason For Study: S/P TAVR Exam Location: [facility]. Interpretation Summary Left ventricular systolic function [...] no significant change (post-procedure). Procedure Limited - 56955. Doppler - 57793. Color Doppler - 97692. Satisfactory quality. This study is limited because [...] Note Lee Kincaid MD - 07/08/2023 [address] [place] [id number] Echocardiogram Report Name: PURNIMA THACKER Study Date: 0:31 AMBP: 118/60 mmHg Patient Location: : 1955 Height: 155 cm Account: [id number] Age: 67 yrs Weight: 74 kg Gender: Female BSA: 1.7 m2 Ordering Physician: ALIRIO HUDSON Referring Physician: VINOD JUÁREZ Performed By: Felicia Norris RDCS Reason For Study: S/P TAVR Exam Location: [facility]. Interpretation Summary Left ventricular systolic function [...] is nosignificant change (post-procedure). Procedure Limited - 32117. Doppler - 96111. Color Doppler - 51890. Satisfactoryquality. This study is limited because of [...] City/State/[facility] Co de Phone Number [facility] [place] [address] * (ABNORMAL) Basic Metabolic Panel (non-fasting) (05/22/2023 3:57 AM EDT) Glucose 88 65 - 199 mg/dL [facility] Comment:Diabetes: >=200 mg/d L plus symptoms Blood Urea Nitrogen 21(H) 8 - 18 mg/dL [facility] Creatinine 0.69(L) 0.70 - 1.20 mg/dL [facility] Sodium 136 135 - 145 mmol/L [facility] Potassium 3.6 3.5 - 5.0 mmol/L [facility] Comment: Please note: ??Patients with WBC >100,000 may have falsely elevated Potassium levels. ??For accurate Potassium quantification in these patients send serum separator tube (gold top) for subsequent determinations. ??Contact the Clinical Chemistry Laboratory if there are any questions. Chloride 102 98 - 107 mmol/L [facility] Carbon Dioxide 23 22 - 31 mmol/L [facility] Anion Gap 11 5 - 15 mmol/L [facility] Calcium 8.6 8.5 - 10.5 mg/dL [facility] Est Glomerular Filtration Rate 95 >=60 mL/min/1. 73 m?? [facility] [...] Lab Mara Serrano APRN CHEMISTRY ORDERABL ES [facility] [place] [address] * (ABNORMAL) Basic Metabolic Panel (non-fasting) (05/21/2023 5:06 AM EDT) Glucose 87 65 - 199 mg/dL [facility] Comment:Diabetes: >=200 mg/d L plus symptoms Blood Urea Nitrogen 25(H) 8 - 18 mg/dL [facility] Creatinine 0.84 0.70 - 1.20 mg/dL [facility] Sodium 136 135 - 145 mmol/L [facility] Potassium 3.6 3.5 - 5.0 mmol/L [facility] Comment: Please note: ??Patients with WBC >100,000 may have falsely elevated Potassium levels. ??For accurate Potassium quantification in these patients send serum separator tube (gold top) for subsequent determinations. ??Contact the Clinical Chemistry Laboratory if there are any questions. Chloride 102 98 - 107 mmol/L [facility] Carbon Dioxide 26 22 - 31 mmol/L [facility] Anion Gap 8 5 - 15 mmol/L [facility] Calcium 8.9 8.5 - 10.5 mg/dL [facility] Est Glomerular Filtration Rate 76 >=60 mL/min/1. 73 m?? [facility] [...] Agency Comment Spec In Lab Mara Serrano SENIOR OUTSIDE SALES REPRESENTATIVE CHEMISTRY ORDERABL ES Performing Organization Address [facility]/ZIP Co de Phone Number [facility] [place] [address] * Lavender Tube HOLD (05/20/2023 2:52 AM EDT) Lavender Hold Sample in lab. [facility] Blood Venous Draw / Unknown 05/20/2023 2:52 AM EDT 05/20/2023 3:04 AM EDT Mara Serrano SENIOR OUTSIDE SALES REPRESENTATIVE HEMATOLOGY ORDERAB LES [facility] [place] [address] * (ABNORMAL) Basic Metabolic Panel (non-fasting) (05/20/2023 2:52 AM EDT) Glucose 152 65 - 199 mg/dL [facility] Comment:Diabetes: >=200 mg/d L plus symptoms Blood Urea Nitrogen 33(H) 8 - 18 mg/dL [facility] Creatinine 0.82 0.70 - 1.20 mg/dL [facility] Sodium 137 135 - 145 mmol/L [facility] Potassium 3.7 3.5 - 5.0 mmol/L [facility] Comment: Please note: ??Patients with WBC >100,000 may have falsely elevated Potassium levels. ??For accurate Potassium quantification in these patients send serum separator tube (gold top) for subsequent determinations. ??Contact the Clinical Chemistry Laboratory if there are any questions. Chloride 99 98 - 107 mmol/L [facility] Carbon Dioxide 22 22 - 31 mmol/L [facility] Anion Gap 16(H) 5 - 15 mmol/L [facility] Calcium 9.0 8.5 - 10.5 mg/dL [facility] Est Glomerular Filtration Rate 78 >=60 mL/min/1. 73 m?? [facility] [...] Agency Comment Spec In Lab Mara Thomasfield SENIOR OUTSIDE SALES REPRESENTATIVE CHEMISTRY ORDERABL ES Performing Organization Address [facility] Co de Phone Number [facility] [place] [address] * (ABNORMAL) Potassium (05/20/2023 2:52 AM EDT) Potassium 3.4(L) 3.5 - 5.0 mmol/L [facility] Comment: Please note: ??Patients with WBC >100,000 may have falsely elevated Potassium levels. ??For accurate Potassium quantification in these patients send serum separator tube (gold top) for subsequent determinations. ??Contact the Clinical Chemistry Laboratory if there are any questions. Blood 05/20/2023 2:52 AM EDT 05/20/2023 3:03 AM EDT Narrative Resulting Agency Comment Spec In Lab Mara Thomasfield SENIOR OUTSIDE SALES REPRESENTATIVE CHEMISTRY ORDERABL ES Performing Organization Address [facility] Co de Phone Number [facility] [place] [address] * XR Chest PA & Lateral (Generic) [...] who have questions please contact the health lpn care manager that requested your imaging first. ? Electronically signed by: Chyna Johnson MD, [facility] ??([phone]), at 05/19/2023 2:19 PM Narrative 05/19/2023 2:19 [...] patients who have questions please contactthe health lpn care manager that requested your imaging first. Electronically signed by: Chyna Johnson MD, [facility]([phone]), at 05/19/2023 2:19 PM Alirio Hudson MD IMG DX ORDERABLES * (ABNORMAL) Basic Metabolic Panel (non-fasting) (05/19/2023 5:49 AM EDT) Glucose 93 65 - 199 mg/dL [facility] Comment:Diabetes: >=200 mg/d L plus symptoms Blood Urea Nitrogen 45(H) 8 - 18 mg/dL [facility] Creatinine 1.02 0.70 - 1.20 mg/dL [facility] [facility] Sodium 138 135 - 145 mmol/L [facility] Potassium 3.9 3.5 - 5.0 mmol/L [facility] Comment: Please note: ??Patients with WBC >100,000 may have falsely elevated Potassium levels. ??For accurate Potassium quantification in these patients send serum separator tube (gold top) for subsequent determinations. ??Contact the Clinical Chemistry Laboratory if there are any questions. Chloride 102 98 - 107 mmol/L [facility] Carbon Dioxide 26 22 - 31 mmol/L [facility] Anion Gap 10 5 - 15 mmol/L [facility] Calcium 9.7 8.5 - 10.5 mg/dL [facility] Est Glomerular Filtration Rate 60 >=60 mL/min/1. 73 m?? [facility] [...] Agency Comment Spec In Lab Mara Serrano SENIOR OUTSIDE SALES REPRESENTATIVE CHEMISTRY ORDERABL ES [facility] [place] [address] * IR Chest Tube Placement Right (05/18/2023 [...] Kristopher Salgado MD 05/18/2023 Alirio Hudson MD [facility] IR ORDERABLES * (ABNORMAL) Basic Metabolic Panel (non-fasting) (05/18/2023 2:54 AM EDT) Glucose 95 65 - 199 mg/dL [facility] Comment:Diabetes: >=200 mg/d L plus symptoms Blood Urea Nitrogen 71(H) 8 - 18 mg/dL [facility] Comment:result rechecked-JSJ Creatinine 1.64(H) 0.70 - 1.20 mg/dL [facility] Comment:result rechecked-JSJ Sodium 137 135 - 145 mmol/L [facility] Potassium 3.7 3.5 - 5.0 mmol/L [facility] Comment: Please note: ??Patients with WBC >100,000 may have falsely elevated Potassium levels. ??For accurate Potassium quantification in these patients send serum separator tube (gold top) for subsequent determinations. ??Contact the Clinical Chemistry Laboratory if there are any questions. Chloride 100 98 - 107 mmol/L [facility] Carbon Dioxide 24 22 - 31 mmol/L [facility] Anion Gap 13 5 - 15 mmol/L [facility] Calcium 9.7 8.5 - 10.5 mg/dL [facility] Est Glomerular Filtration Rate 34(L) >=60 mL/min/1. 73 m?? [facility] [...] Agency Comment Spec In Lab Mara Serrano SENIOR OUTSIDE SALES REPRESENTATIVE CHEMISTRY ORDERABL ES [facility] [place] [address] * XR Chest PA & Lateral (Generic) [...] who have questions please contact the health lpn care manager that requested your imaging first. ? Electronically signed by: Ghassan Reyes MD, [facility] ??([phone]), at 05/17/2023 11:46 AM Narrative 05/17/2023 11:46 [...] patients who have questions please contactthe health lpn care manager that requested your imaging first. Electronically signed by: Ghassan Reyes MD, [facility]([phone]), at 05/17/2023 11:46 AM Alirio Hudson MD IMG DX ORDERABLES * (ABNORMAL) Comprehensive metabolic panel (non-fasting) (05/17/2023 4:35 AM EDT) Glucose 89 65 - 199 mg/dL [facility] Comment:Diabetes: >=200 mg/d L plus symptoms Blood Urea Nitrogen 97(H) 8 - 18 mg/dL [facility] Creatinine 2.97(H) 0.70 - 1.20 mg/dL [facility] Comment:result rechecked-JSJ Sodium 135 135 - 145 mmol/L [facility] Potassium 4.1 3.5 - 5.0 mmol/L [facility] Comment: Please note: ??Patients with WBC >100,000 may have falsely elevated Potassium levels. ??For accurate Potassium quantification in these patients send serum separator tube (gold top) for subsequent determinations. ??Contact the Clinical Chemistry Laboratory if there are any questions. Chloride 97(L) 98 - 107 mmol/L [facility] Carbon Dioxide 22 22 - 31 mmol/L [facility] Anion Gap 16(H) 5 - 15 mmol/L [facility] Calcium 9.6 8.5 - 10.5 mg/dL [facility] Protein, Total 6.5 6.1 - 8.0 g/dL [facility] Albumin 3.7 3.2 - 5.2 g/dL [facility] Aspartate Aminotransferase 58(H) 0 - 30 unit/L [facility] Alanine Aminotransferase 66(H) 0 - 30 unit/L [facility] Alkaline Phosphatase 86 35 - 105 unit/L [facility] Bilirubin, Total 0.6 0.2 - 1.3 mg/dL [facility] Est Glomerular Filtration Rate 17(L) >=60 mL/min/1. 73 m?? [facility] [...] ORDERABLE S Performing Organization Address [facility] Co de Phone Number [facility] [place] [address] * Potassium (05/16/2023 11:15 PM EDT) [facility] Signature Potassium 3.7 3.5 - 5.0 mmol/L [facility] [...] MD CHEMISTRY ORDERABLE S Performing Organization Address City/[facility] Co de Phone Number [facility] [place] [address] * Magnesium (05/16/2023 5:22 PM EDT) Magnesium 0.96 0.69 - 1.07 mmol/L [facility] Blood 05/16/2023 5:22 PM EDT 05/16/2023 5:27 PM EDT Narrative Resulting Agency Comment Spec In Lab Alirio Hudson MD CHEMISTRY ORDERABLE S [facility] [address] [facility] [address] [place] [address] * (ABNORMAL) Basic Metabolic Panel (non-fasting) (05/16/2023 5:22 PM EDT) Glucose 106 65 - 199 mg/dL [facility] Comment:Diabetes: >=200 mg/d L plus symptoms Blood Urea Nitrogen 103(H) 8 - 18 mg/dL [facility] Creatinine 3.91(H) 0.70 - 1.20 mg/dL [facility] Comment:result rechecked-imm Sodium 132(L) 135 - 145 mmol/L [facility] Potassium 3.6 3.5 - 5.0 mmol/L [facility] Comment: Please note: ??Patients with WBC >100,000 may have falsely elevated Potassium levels. ??For accurate Potassium quantification in these patients send serum separator tube (gold top) for subsequent determinations. ??Contact the Clinical Chemistry Laboratory if there are any questions. Chloride 92(L) 98 - 107 mmol/L [facility] Carbon Dioxide 22 22 - 31 mmol/L [facility] Anion Gap 18(H) 5 - 15 mmol/L [facility] Calcium 9.7 8.5 - 10.5 mg/dL [facility] Est Glomerular Filtration Rate 12(L) >=60 mL/min/1. 73 m?? [facility] [...] MD CHEMISTRY ORDERABLE S Performing Organization Address City/[facility] Co de Phone Number [facility] [place] [address] * (ABNORMAL) Potassium (05/16/2023 11:43 AM EDT) [facility] Potassium 3.3(L) 3.5 - 5.0 mmol/L [facility] [...] ORDERABLE S Performing Organization Address [facility] Co de Phone Number [facility] [place] [address] * (ABNORMAL) Ferritin (05/16/2023 4:41 AM EDT) Pathologist [facility] Ferritin 1,813(H) 30 - 400 ng/mL [facility] Comment: Pediatric reference ranges not verified at [facility] interpret with caution. Reference ranges for females greater than 50 years of age approach values for men, i.e., 30-400 ng/mL. Blood 05/16/2023 4:41 AM EDT 05/16/2023 4:54 AM EDT Narrative Resulting Agency Comment Spec In Lab Kristohper Ayoub MD CHEMISTRY ORDERABLES Performing Organization Address City/[facility]/ZIP Co de Phone Number [facility] [place] [address] * (ABNORMAL) PTH (05/16/2023 4:41 AM EDT) Parathyroid Hormone 120(H) 15 - 65 pg/mL [facility] Blood 05/16/2023 4:41 AM EDT 05/16/2023 4:54 AM EDT Narrative Resulting Agency Comment Spec In Lab Kristopher Ayoub MD CHEMISTRY ORDERABLES [facility] [place] [address] * Vitamin D, 25-Hydroxy (05/16/2023 4:41 AM EDT) Vitamin D Total 25 OH 33 21 - 100 ng/mL [facility] Vit D Interp Sufficient [facility] Blood 05/16/2023 4:41 AM EDT 05/16/2023 4:54 AM EDT Narrative Resulting Agency Comment Spec In Lab Kristopher Ayoub MD CHEMISTRY ORDERABLES Performing Organization Address City/[facility] Co de Phone Number [facility] [place] [address] * (ABNORMAL) Blood Gas Venous ([facility]) (05/16/2023 4:22 AM EDT) pH, Venous 7.41 7.32 - 7.42 [facility] PCO2, Venous 32(L) 41 - 51 mmHg [facility] PO2, Venous 73(H) 25 - 40 mmHg [facility] Bicarbonate, Venous 19.6 mmol/L [facility] Base Excess, Venous -5.1 mmol/L [facility] Hgb Blood Gas 9.7(L) 11.7 - 15.5 g/dL [facility] Oxyhemoglobin, Venous 92.8 % [facility] Carboxyhemoglob in, Venous 0.1 % [facility] Comment: Nonsmokers: 0.5-1.5% COHB Smokers: Variable, but usually less than 10% Toxic: 20-30% COHB Lethal: Greater than 60% COHB Methemoglobin, Venous 0.3 <=1.5 % [facility] Na Whole Blood 130(L) 135 - 145 mmol/L [facility] K Whole Blood 3.7 3.5 - 5.0 mmol/L [facility] Comment: Please note: Patients with WBC >100,000 may have falsely elevated Potassium levels. Contact the Clinical Chemistry Laboratory if there are any questions. ICa Whole Blood 1.15 1.15 - 1.33 mmol/L [facility] Comment: Note: ??Total bilirubin higher than 20 mg/dL may lead to falsely low ionized calcium. CL Whole Blood 95(L) 98 - 107 mmol/L [facility] Gluc Whole Bld 82 65 - 199 mg/dL [facility] Comment:Diabetes: >=200 mg/d L plus symptoms Lactate WB 1.1 0.5 - 2.2 mmol/L [facility] Blood Gas Source Venous [facility] Blood Venous Draw / Unknown 05/16/2023 4:22 AM EDT 05/16/2023 4:31 AM EDT Narrative Resulting Agency Comment Spec In Lab Bonita TOBAR CHEMISTRY ORDERABLES [facility] [place] [address] * (ABNORMAL) Differential, Automated (05/16/2023 4:20 AM EDT) Neutrophil % 84.1 % [facility] Neutrophil Absolute 6.22(H) 1.70 - 6.10 x10(3)/mc L [facility] Lymph % 5.8 % [facility] Lymphocytes Abs 0.4(L) 0.9 - 3.2 x10(3)/mc L [facility] Monocyte % 8.8 % [facility] Monocyte Abs 0.6 0.3 - 0.9 x10(3)/mc L [facility] Eos % 0.4 % [facility] Eosinophils Abs 0.0 0.0 - 0.4 x10(3)/mc L [facility] Basophil % 0.0 % [facility] Baso Absolute 0.0 0.0 - 0.1 x10(3)/mc L [facility] Immature Gran % 0.90 % [facility] Comment: Immature granulocytes(IG's)percentage and absolute count will include metamyelocytes, myelocytes, and promyelocytes. Blood smears from CBCs yielding IG's will be scanned manually for concordance. If this scan disagrees with the automated IG or if promyelocytes are noted, a manual differential will be performed. Immature Gran Absolute 0.07(H) 0.00 - 0.04 x10(3)/mc L [facility] Blood 05/16/2023 4:20 AM EDT 05/16/2023 4:29 AM EDT Narrative Resulting Agency Comment Spec In Lab James Agustin MD HEMATOLOGY ORDER JODIE [facility] [place] [address] * (ABNORMAL) Hemogram (05/16/2023 4:20 AM EDT) White Blood Cell 7.4 4.0 - 9.5 x10(3)/mc L [facility] Red Blood Cell 2.40(L) 4.00 - 5.21 x10(6)/mc L [facility] Hemoglobin 7.8(L) 11.7 - 15.5 g/dL [facility] Hematocrit 22.5(L) 35.7 - 45.8 % [facility] Mean Cell Volume 93.8 82.6 - 94.4 fL [facility] Mean Cell Hemoglobin 32.5(H) 27.1 - 32.0 pg [facility] Mean Cell Hemoglobin Concentration 34.7 31.7 - 35.0 g/dL [facility] Platelet 120(L) 145 - 357 x10(3)/mc L [facility] RDW Standard Deviation 42.9 37.0 - 46.0 fL [facility] RDW coefficient of variation 12.9 11.5 - 14.1 % [facility] Mean Platelet Volume 11.3 7.6 - 12.9 fL [facility] NRBC% auto 0.7 % [facility] NRBC Absolute 0.050(H) 0.000 - 0.000 x10(3)/mc L [facility] Blood 05/16/2023 4:20 AM EDT 05/16/2023 4:29 AM EDT Narrative Resulting Agency Comment Spec In Lab James Agustin MD HEMATOLOGY ORDER JODIE [facility] [place] [address] * (ABNORMAL) Basic Metabolic Panel (non-fasting) (05/16/2023 4:20 AM EDT) Glucose 89 65 - 199 mg/dL [facility] Comment:Diabetes: >=200 mg/d L plus symptoms Blood Urea Nitrogen 108(H) 8 - 18 mg/dL [facility] Creatinine 4.74(H) 0.70 - 1.20 mg/dL [facility] Comment:result rechecked-OLIVA Sodium 132(L) 135 - 145 mmol/L [facility] Potassium 3.9 3.5 - 5.0 mmol/L [facility] Comment: Please note: ??Patients with WBC >100,000 may have falsely elevated Potassium levels. ??For accurate Potassium quantification in these patients send serum separator tube (gold top) for subsequent determinations. ??Contact the Clinical Chemistry Laboratory if there are any questions. Chloride 95(L) 98 - 107 mmol/L [facility] Carbon Dioxide 18(L) 22 - 31 mmol/L [facility] Anion Gap 19(H) 5 - 15 mmol/L [facility] Calcium 9.2 8.5 - 10.5 mg/dL [facility] Est Glomerular Filtration Rate 10(L) >=60 mL/min/1. 73 m?? [facility] [...] MD CHEMISTRY ORDERABLE S Performing Organization Address City/[facility]/ZIP Co de Phone Number [facility] [place] [address] * (ABNORMAL) Iron and TIBC (05/16/2023 4:20 AM EDT) Iron 31 30 - 150 mcg/dL [facility] TIBC 259 250 - 450 mcg/dL [facility] Iron Saturation 12(L) 20 - 50 % [facility] Blood 05/16/2023 4:20 AM EDT 05/16/2023 4:29 AM EDT Narrative Resulting Agency Comment Spec In Lab Kristopher Ayoub MD CHEMISTRY ORDERABLES Performing Organization Address City/[facility]/ZIP Co de Phone Number [facility] [place] [address] * (ABNORMAL) Basic Metabolic Panel (non-fasting) (05/15/2023 12:50 AM EDT) Glucose 101 65 - 199 mg/dL [facility] Comment:Diabetes: >=200 mg/d L plus symptoms Blood Urea Nitrogen 109(H) 8 - 18 mg/dL [facility] Creatinine 5.62(H) 0.70 - 1.20 mg/dL [facility] Comment:result rechecked-KS Sodium 131(L) 135 - 145 mmol/L [facility] Comment:result rechecked-KS Potassium 3.7 3.5 - 5.0 mmol/L [facility] Comment: result rechecked-KS Please note: ??Patients with WBC >100,000 may have falsely elevated Potassium levels. ??For accurate Potassium quantification in these patients send serum separator tube (gold top) for subsequent determinations. ??Contact the Clinical Chemistry Laboratory if there are any questions. Chloride 92(L) 98 - 107 mmol/L [facility] Comment:result rechecked-KS Carbon Dioxide 18(L) 22 - 31 mmol/L [facility] Comment:result rechecked-KS Anion Gap 21(H) 5 - 15 mmol/L [facility] Calcium 8.9 8.5 - 10.5 mg/dL [facility] Est Glomerular Filtration Rate 8(L) >=60 mL/min/1. 73 m?? [facility] [...] City/State/[facility] Co de Phone Number [facility] [place] [address] * (ABNORMAL) Hemogram (05/15/2023 12:50 AM EDT) White Blood Cell 9.1 4.0 - 9.5 x10(3)/mc L [facility] Red Blood Cell 2.19(L) 4.00 - 5.21 x10(6)/mc L [facility] Hemoglobin 7.2(L) 11.7 - 15.5 g/dL [facility] Hematocrit 20.6(L) 35.7 - 45.8 % [facility] Mean Cell Volume 94.1 82.6 - 94.4 fL [facility] Mean Cell Hemoglobin 32.9(H) 27.1 - 32.0 pg [facility] Mean Cell Hemoglobin Concentration 35.0 31.7 - 35.0 g/dL [facility] Platelet 109(L) 145 - 357 x10(3)/mc L [facility] RDW Standard Deviation 43.6 37.0 - 46.0 fL [facility] RDW coefficient of variation 12.9 11.5 - 14.1 % [facility] Mean Platelet Volume 10.4 7.6 - 12.9 fL [facility] NRBC% auto 2.1 % [facility] NRBC Absolute 0.190(H) 0.000 - 0.000 x10(3)/mc L [facility] Blood 05/15/2023 12:5 0 AM EDT 05/15/2023 12:52 AM EDT Narrative Resulting Agency Comment Spec In Lab Alirio Hudson MD HEMATOLOGY ORDERABL ES [facility] [place] [address] * (ABNORMAL) BLOOD GAS 2 VENOUS (05/15/2023 12:49 AM EDT) pH, Venous 7.33 7.32 - 7.42 [facility] PCO2, Venous 37(L) 41 - 51 mmHg [facility] PO2, Venous 34 25 - 40 mmHg [facility] Bicarbonate, Venous 19.1 mmol/L [facility] Base Excess, Venous -6.8 mmol/L [facility] Hgb Blood Gas 10.8(L) 11.7 - 15.5 g/dL [facility] Oxyhemoglobin, Venous 58.1 % [facility] Carboxyhemoglob in, Venous 0.3 % [facility] Comment: Nonsmokers: 0.5-1.5% COHB Smokers: Variable, but usually less than 10% Toxic: 20-30% COHB Lethal: Greater than 60% COHB Methemoglobin, Venous 0.6 <=1.5 % [facility] Na Whole Blood 136 135 - 145 mmol/L [facility] K Whole Blood 3.7 3.5 - 5.0 mmol/L [facility] Comment: Please note: Patients with WBC >100,000 may have falsely elevated Potassium levels. Contact the Clinical Chemistry Laboratory if there are any questions. ICa Whole Blood 1.12(L) 1.15 - 1.33 mmol/L [facility] Comment: Note: ??Total bilirubin higher than 20 mg/dL may lead to falsely low ionized calcium. CL Whole Blood 95(L) 98 - 107 mmol/L [facility] Gluc Whole Bld 101 65 - 199 mg/dL [facility] Comment:Diabetes: >=200 mg/d L plus symptoms Lactate WB 1.3 0.5 - 2.2 mmol/L [facility] Flow, Mike 1.0 LPM [facility] Blood Gas Source Venous [facility] Blood 05/15/2023 12:4 9 AM EDT 05/15/2023 12:49 AM EDT Alirio Hudson MD POINT OF CARE TEST ORDERABLES Performing Organization Address City/State/[facility] Co de Phone Number [facility] [address] * US Retroperitoneal Complete (05/14/2023 3:53 PM [...] PM Electronically signed by: Hayden Robledo MD, [facility] ([phone]), at 05/14/2023 4:32 PM Thank you for letting us participate in the care of this patient. If you are a health care provider and have any questions regarding this report, please contact the number above. For patients who have questions, please contact the health lpn care manager that requested your imaging first. ? Hayden Robledo, Staff Physician Electronically Signed Final Report ?? 05/14/2023 04:39 pm Narrative 05/14/2023 4:39 PM EDT Renal ? (Signed Final 05/14/2023 04:39 pm) PATIENT INFO: ID #: ? [id number] ?: ??[birth year] (67 yrs)(F) Name: ? PURNIMA THACKER ?Visit Date: 05/14/2023 03:44 pm PERFORMED BY: Attending: ?Meena CULP, Hayden Stafford Resident: ? Nell CULP, Anand August Performed By: ? Consuelo Tello RDMS Referred By: ?ALIRIO Powell [facility] Location: ? [place] SERVICE(S) PROVIDED: URETRO - Retroperitoneal Complete - [id number] ? [id number] INDICATIONS: EVANS COMPARISON: CT: Abdomen/Pelvis 05/11/23 RIGHT [...] 05/14/2023 04:39 pm) PATIENT INFO: ID #: [id number] : [birth year] (67 yrs)(F) Name: PURNIMA THACKER Visit Date: 05/14/2023 03:44 pm PERFORMED BY: Attending: Hayden Robledo MD Resident: Anand Camejo MD Performed By: Consuelo Tello RDMS Referred By: ALIRIO HUDSON Location: [place] SERVICE(S) PROVIDED: URETRO - Retroperitoneal Complete - [id number] INDICATIONS: EVANS COMPARISON: CT: Abdomen/Pelvis 05/11/23 RIGHT [...] PM Electronically signed by: Hayden Robledo MD, [facility] ([phone]), at 05/14/2023 4:32 PM Thank you for letting us participate in the care of this patient. If you are a health care provider and have any questions regarding this report, please contact the number above. For patients who have questions, please contact the health lpn care manager that requested your imaging first. Hayden Robledo, Staff Physician Electronically Signed Final Report 05/14/2023 04:39 pm Alirio Hudson MD IMG US GEN ORDERABL ES * CK (05/14/2023 3:17 PM EDT) Creatine Kinase 123 0 - 160 unit/L [facility] Blood 05/14/2023 3:17 PM EDT 05/14/2023 3:31 PM EDT Narrative Resulting Agency Comment Spec In Lab Alirio Hudson MD CHEMISTRY ORDERABLE S Performing Organization Address City/[facility]/ZIP Co de Phone Number [facility] [place] [address] * (ABNORMAL) Uric acid (05/14/2023 3:17 PM EDT) Uric Acid 14.9(H) 2.5 - 6.5 mg/dL [facility] Blood 05/14/2023 3:17 PM EDT 05/14/2023 3:31 PM EDT Narrative Resulting Agency Comment Spec In Lab Alirio Hudson MD CHEMISTRY ORDERABLE S Performing Organization Address [facility] Co de Phone Number [facility] [place] [address] * (ABNORMAL) Osmolality (05/14/2023 3:17 PM EDT) Osmolality 311(H) 275 - 295 mOsm/kg [facility] Blood 05/14/2023 3:17 PM EDT 05/14/2023 3:31 PM EDT Narrative Resulting Agency Comment Spec In Lab Alirio Hudson MD CHEMISTRY ORDERABLE S Performing Organization Address [facility] Co de Phone Number [facility] [place] [address] * (ABNORMAL) Differential, Automated (05/14/2023 1:10 AM EDT) Neutrophil % 87.2 % [facility] Neutrophil Absolute 9.74(H) 1.70 - 6.10 x10(3)/mc L [facility] Lymph % 3.9 % [facility] Lymphocytes Abs 0.4(L) 0.9 - 3.2 x10(3)/mc L [facility] Monocyte % 7.9 % [facility] Monocyte Abs 0.9 0.3 - 0.9 x10(3)/mc L [facility] [facility] Eos % 0.0 % [facility] Eosinophils Abs 0.0 0.0 - 0.4 x10(3)/mc L [facility] Basophil % 0.1 % [facility] Baso Absolute 0.0 0.0 - 0.1 x10(3)/mc L [facility] Immature Gran % 0.90 % [facility] Comment: Immature granulocytes(IG's)percentage and absolute count will include metamyelocytes, myelocytes, and promyelocytes. Blood smears from CBCs yielding IG's will be scanned manually for concordance. If this scan disagrees with the automated IG or if promyelocytes are noted, a manual differential will be performed. Immature Gran Absolute 0.10(H) 0.00 - 0.04 x10(3)/ L [facility] Blood 05/14/2023 1:10 AM EDT 05/14/2023 1:24 AM EDT Narrative Resulting Agency Comment Spec In Lab Bonita TOBAR HEMATOLOGY ORDERABLE S Performing Organization Address City/State/[facility] Co de Phone Number [facility] [place] [address] * (ABNORMAL) Hemogram (05/14/2023 1:10 AM EDT) White Blood Cell 11.2(H) 4.0 - 9.5 x10(3)/mc L [facility] Red Blood Cell 2.19(L) 4.00 - 5.21 x10(6)/mc L [facility] Hemoglobin 7.2(L) 11.7 - 15.5 g/dL [facility] Hematocrit 20.3(L) 35.7 - 45.8 % [facility] Mean Cell Volume 92.7 82.6 - 94.4 fL [facility] Mean Cell Hemoglobin 32.9(H) 27.1 - 32.0 pg [facility] Mean Cell Hemoglobin Concentration 35.5(H) 31.7 - 35.0 g/dL [facility] Platelet 112(L) 145 - 357 x10(3)/mc L [facility] RDW Standard Deviation 41.4 37.0 - 46.0 fL [facility] RDW coefficient of variation 12.5 11.5 - 14.1 % [facility] Mean Platelet Volume 10.4 7.6 - 12.9 fL [facility] NRBC% auto 1.5 % [facility] NRBC Absolute 0.170(H) 0.000 - 0.000 x10(3)/mc L [facility] Blood 05/14/2023 1:10 AM EDT 05/14/2023 1:24 AM EDT Narrative Resulting Agency Comment Spec In Lab Bonita TOBAR HEMATOLOGY ORDERABLE S [facility] [place] [address] * (ABNORMAL) Comprehensive metabolic panel (non-fasting) (05/14/2023 1:10 AM EDT) Glucose 120 65 - 199 mg/dL [facility] Comment:Diabetes: >=200 mg/d L plus symptoms Blood Urea Nitrogen 98(H) 8 - 18 mg/dL [facility] Creatinine 4.80(H) 0.70 - 1.20 mg/dL [facility] Comment:result rechecked-[facility] Sodium 132(L) 135 - 145 mmol/L [facility] Potassium 4.1 3.5 - 5.0 mmol/L [facility] Comment: Please note: ??Patients with WBC >100,000 may have falsely elevated Potassium levels. ??For accurate Potassium quantification in these patients send serum separator tube (gold top) for subsequent determinations. ??Contact the Clinical Chemistry Laboratory if there are any questions. Chloride 94(L) 98 - 107 mmol/L [facility] Carbon Dioxide 18(L) 22 - 31 mmol/L [facility] Anion Gap 20(H) 5 - 15 mmol/L [facility] Calcium 8.5 8.5 - 10.5 mg/dL [facility] Protein, Total 5.8(L) 6.1 - 8.0 g/dL [facility] Albumin 3.6 3.2 - 5.2 g/dL [facility] Aspartate Aminotransferase 319(H) 0 - 30 unit/L [facility] Alanine Aminotransferase 437(H) 0 - 30 unit/L [facility] Alkaline Phosphatase 86 35 - 105 unit/L [facility] Bilirubin, Total 0.4 0.2 - 1.3 mg/dL [facility] Est Glomerular Filtration Rate 9(L) >=60 mL/min/1. 73 m?? [facility] [...] MD CHEMISTRY ORDERABLE S Performing Organization Address City/[facility] Co de Phone Number [facility] [place] [address] * APTT (05/13/2023 10:15 AM EDT) Partial Thromboplastin Time 27 25 - 37 sec [facility] Comment: The PTT is NOT appropriate for heparin monitoring. Use the Anti-Xa level for heparin monitoring (HEP UFH) or LMWH monitoring (HEP LMW). A PTT less than 37 seconds generally indicates adequate hemostasis. Blood 05/13/2023 10:1 5 AM EDT 05/13/2023 10:46 AM EDT Narrative Resulting Agency Comment Spec In Lab Alirio Hudson MD HEMATOLOGY ORDERABL ES Performing Organization Address City/[facility]/ZIP Co de Phone Number [facility] [place] [address] * (ABNORMAL) Prothrombin Time (05/13/2023 10:15 AM EDT) Prothrombin Time 14.6(H) 9.4 - 12.5 sec [facility] International Normalization Ratio 1.3 [facility] Comment: An INR <2.0 [...] MD HEMATOLOGY ORDERABL ES Performing Organization Address City/[facility]/ZIP Co de Phone Number [facility] [place] [address] * EKG 12 Lead (05/13/2023 9:22 AM EDT) Ventricular rate 92 BPM MUSE SYSTEM Atrial Rate 92 BPM MUSE SYSTEM P-R Interval 140 ms MUSE SYSTEM QRS Duration 104 ms MUSE SYSTEM Q-T Interval 384 ms MUSE SYSTEM QTC Calculated (Bezet) 474 ms MUSE SYSTEM Calculated P [place] 33 degrees MUSE SYSTEM Calculated R [place] 41 degrees MUSE SYSTEM Calculated T [place] -35 degrees MUSE SYSTEM INTERPRETATION Sinus rhythm with frequent Premature ventricular complexes Septal infarct , age undetermined ST & T wave abnormality, consider lateral ischemia Abnormal ECG When compared with ECG of 12-MAY-2023 10:10, Premature ventricular complexes are now Present I personally reviewed the tracing and edited the fellows interpretation Confirmed by fellow MD Anitha, Carissa ([id number]) on 05/13/2023 3:25:30 PM Confirmed by Maxx Best ([id number]) on 05/13/2023 8:30:56 PM MUSE SYSTEM 05/13/2023 9:22 AM EDT 05/13/2023 8:30 PM EDT Alirio Hudson MD ECG ORDERABLES Performing Organization Address City/[facility]/ZIP Co de Phone Number MUSE SYSTEM * (ABNORMAL) Differential, Automated (05/13/2023 1:15 AM EDT) Neutrophil % 88.1 % [facility] Neutrophil Absolute 7.62(H) 1.70 - 6.10 x10(3)/mc L [facility] Lymph % 3.1 % [facility] Lymphocytes Abs 0.3(L) 0.9 - 3.2 x10(3)/mc L [facility] Monocyte % 7.9 % [facility] Monocyte Abs 0.7 0.3 - 0.9 x10(3)/ L [facility] Eos % 0.0 % [facility] Eosinophils Abs 0.0 0.0 - 0.4 x10(3)/mc L [facility] Basophil % 0.1 % [facility] Baso Absolute 0.0 0.0 - 0.1 x10(3)/ L [facility] Immature Gran % 0.80 % [facility] Comment: Immature granulocytes(IG's)percentage and absolute count will include metamyelocytes, myelocytes, and promyelocytes. Blood smears from CBCs yielding IG's will be scanned manually for concordance. If this scan disagrees with the automated IG or if promyelocytes are noted, a manual differential will be performed. Immature Gran Absolute 0.07(H) 0.00 - 0.04 x10(3)/ L [facility] Blood 05/13/2023 1:15 AM EDT 05/13/2023 1:29 AM EDT Narrative Resulting Agency Comment Spec In Lab Lorri TOBAR HEMATOLOGY ORDERABLE S [facility] [place] [address] * (ABNORMAL) Hemogram (05/13/2023 1:15 AM EDT) Pathologist [facility] White Blood Cell 8.6 4.0 - 9.5 x10(3)/mc L [facility] Red Blood Cell 2.37(L) 4.00 - 5.21 x10(6)/[facility] Hemoglobin 7.8(L) 11.7 - 15.5 g/dL [facility] Hematocrit 22.2(L) 35.7 - 45.8 % [facility] Mean Cell Volume 93.7 82.6 - 94.4 fL [facility] Mean Cell Hemoglobin 32.9(H) 27.1 - 32.0 pg [facility] Mean Cell Hemoglobin Concentration 35.1(H) 31.7 - 35.0 g/dL [facility] Platelet 130(L) 145 - 357 x10(3)/mc L [facility] RDW Standard Deviation 41.7 37.0 - 46.0 fL [facility] RDW coefficient of variation 12.5 11.5 - 14.1 % [facility] Mean Platelet Volume 10.2 7.6 - 12.9 fL [facility] NRBC% auto 0.5 % [facility] NRBC Absolute 0.040(H) 0.000 - 0.000 x10(3)/mc L [facility] Blood 05/13/2023 1:15 AM EDT 05/13/2023 1:29 AM EDT Narrative Resulting Agency Comment Spec In Lab Lorri TOBAR HEMATOLOGY ORDERABLE S [facility] [place] [address] * (ABNORMAL) Hepatic Function Panel (05/13/2023 1:15 AM EDT) Protein, Total 5.5(L) 6.1 - 8.0 g/dL [facility] Albumin 3.0(L) 3.2 - 5.2 g/dL [facility] Aspartate Aminotransferase 792(H) 0 - 30 unit/L [facility] Alanine Aminotransferase 903(H) 0 - 30 unit/L [facility] Alkaline Phosphatase 85 35 - 105 unit/L [facility] Bilirubin, Total 0.5 0.2 - 1.3 mg/dL [facility] Bilirubin, Direct 0.3 0.0 - 0.3 mg/dL [facility] Blood 05/13/2023 1:15 AM EDT 05/13/2023 1:29 AM EDT Narrative Resulting Agency Comment Spec In Lab Alirio Hudson MD CHEMISTRY ORDERABLE S [facility] [place] [address] * (ABNORMAL) Basic Metabolic Panel (non-fasting) (05/13/2023 1:15 AM EDT) Glucose 107 65 - 199 mg/dL [facility] Comment:Diabetes: >=200 mg/d L plus symptoms Blood Urea Nitrogen 82(H) 8 - 18 mg/dL [facility] Creatinine 3.15(H) 0.70 - 1.20 mg/dL [facility] Comment:result rechecked-[facility] Sodium 132(L) 135 - 145 mmol/L [facility] Potassium 3.8 3.5 - 5.0 mmol/L [facility] Comment: Please note: ??Patients with WBC >100,000 may have falsely elevated Potassium levels. ??For accurate Potassium quantification in these patients send serum separator tube (gold top) for subsequent determinations. ??Contact the Clinical Chemistry Laboratory if there are any questions. Chloride 95(L) 98 - 107 mmol/L [facility] Carbon Dioxide 20(L) 22 - 31 mmol/L [facility] Anion Gap 17(H) 5 - 15 mmol/L [facility] Calcium 8.3(L) 8.5 - 10.5 mg/dL [facility] Est Glomerular Filtration Rate 16(L) >=60 mL/min/1. 73 m?? [facility] [...] Lab Alirio Hudson MD CHEMISTRY ORDERABLE S [facility] [place] [address] * (ABNORMAL) BLOOD GAS 2 ARTERIAL (05/12/2023 3:57 PM EDT) pH, Arterial 7.39 7.35 - 7.45 [facility] PCO2, Arterial 33(L) 35 - 45 mmHg [facility] PO2, Arterial 101 85 - 104 mmHg [facility] Bicarbonate, Arterial 19.5(L) 20.0 - 26.0 mmol/L [facility] Base Excess, Arterial -5.5(L) -3.0 - 3.0 mmol/L [facility] Hgb Blood Gas 9.8(L) 11.7 - 15.5 g/dL [facility] Oxyhemoglobin, Arterial 95.2 94.0 - 97.0 % [facility] Carboxyhemoglob in, Arterial 0.2 % [facility] Comment: Nonsmokers: 0.5-1.5% COHB Smokers: Variable, but usually less than 10% Toxic: 20-30% COHB Lethal: Greater than 60% COHB Methemoglobin, Arterial 0.8 <=1.5 % [facility] Na Whole Blood 129(L) 135 - 145 mmol/L [facility] K Whole Blood 3.8 3.5 - 5.0 mmol/L [facility] Comment: Please note: Patients with WBC >100,000 may have falsely elevated Potassium levels. Contact the Clinical Chemistry Laboratory if there are any questions. ICa Whole Blood 1.05(L) 1.15 - 1.33 mmol/L [facility] Comment: Note: ??Total bilirubin higher than 20 mg/dL may lead to falsely low ionized calcium. CL Whole Blood 96(L) 98 - 107 mmol/L [facility] Gluc Whole Bld 178 65 - 199 mg/dL [facility] Comment:Diabetes: >=200 mg/d L plus symptoms. Lactate WB 1.5 0.5 - 2.2 mmol/L [facility] FIO2 Art 40 % [facility] PF Ratio Art 252 [facility] Blood 05/12/2023 3:57 PM EDT 05/12/2023 3:57 PM EDT Alirio Hudson MD POINT OF CARE TEST ORDERABLES Performing Organization Address [facility] Co de Phone Number [facility] [place] [address] * (ABNORMAL) Coox2 (05/12/2023 2:25 PM EDT) pO2, Coox 37 mmHg [facility] Hgb Blood Gas 9.5(L) 11.7 - 15.5 g/dL [facility] Oxyhemoglobin, Coox 59.9 % [facility] Carboxyhemoglo bin, Coox 0.3 % [facility] Comment: Nonsmokers: 0.5-1.5% COHB Smokers: Variable, but usually less than 10% Toxic: 20-30% COHB Lethal: Greater than 60% COHB Methemoglobin, Coox 0.7 <=1.5 % [facility] Source Coox Mixed Venous [facility] Blood 05/12/2023 2:25 PM EDT 05/12/2023 2:25 PM EDT Alirio Hudson MD POINT OF CARE TEST ORDERABLES Performing Organization Address [facility] de Phone Number [facility] [place] [address] * (ABNORMAL) BLOOD GAS 2 ARTERIAL (05/12/2023 2:23 PM EDT) pH, Arterial 7.37 7.35 - 7.45 [facility] PCO2, Arterial 36 35 - 45 mmHg [facility] PO2, Arterial 102 85 - 104 mmHg [facility] Bicarbonate, Arterial 20.4 20.0 - 26.0 mmol/L [facility] Base Excess, Arterial -4.8(L) -3.0 - 3.0 mmol/L [facility] Hgb Blood Gas 12.7 11.7 - 15.5 g/dL [facility] Oxyhemoglobin, Arterial 95.4 94.0 - 97.0 % [facility] Carboxyhemoglob in, Arterial 0.3 % [facility] Comment: Nonsmokers: 0.5-1.5% COHB Smokers: Variable, but usually less than 10% Toxic: 20-30% COHB Lethal: Greater than 60% COHB Methemoglobin, Arterial 0.7 <=1.5 % [facility] Na Whole Blood 129(L) 135 - 145 mmol/L [facility] K Whole Blood 3.7 3.5 - 5.0 mmol/L [facility] Comment: Please note: Patients with WBC >100,000 may have falsely elevated Potassium levels. Contact the Clinical Chemistry Laboratory if there are any questions. ICa Whole Blood 1.05(L) 1.15 - 1.33 mmol/L [facility] Comment: Note: ??Total bilirubin higher than 20 mg/dL may lead to falsely low ionized calcium. CL Whole Blood 95(L) 98 - 107 mmol/L [facility] Gluc Whole Bld 168 65 - 199 mg/dL [facility] Comment:Diabetes: >=200 mg/d L plus symptoms. Lactate WB 1.8 0.5 - 2.2 mmol/L [facility] FIO2 Art 40 % [facility] PF Ratio Art 255 [facility] Blood 05/12/2023 2:23 PM EDT 05/12/2023 2:23 PM EDT Alirio Hudson MD POINT OF CARE TEST ORDERABLES Performing Organization Address City/State/[facility] Co de Phone Number [facility] [place] [address] * (ABNORMAL) Troponin (05/12/2023 2:05 PM EDT) Troponin-T, High Sensitivity 1,022(H) <=14 ng/L [facility] Comment: This patient's troponin T [...] troponin value can be found in the [facility] Laboratory Test Catalog Troponin - [facility] Laboratory Test Catalog Reference: Fourth Leivasy Definition of Myocardial Infarction. Journal of the [place] [employer] 2018;72:8084-7186 Blood 05/12/2023 2:05 PM EDT 05/12/2023 2:14 PM EDT Narrative Resulting Agency Comment Spec In Lab Alirio Hudson MD CHEMISTRY ORDERABLE S Performing Organization Address [facility] Co de Phone Number [facility] [place] [address] * (ABNORMAL) Hemoglobin (05/12/2023 2:05 PM EDT) Hemoglobin 8.5(L) 11.7 - 15.5 g/dL [facility] Blood 05/12/2023 2:05 PM EDT 05/12/2023 2:14 PM EDT Narrative Resulting Agency Comment Spec In Lab Alirio Hudson MD HEMATOLOGY ORDERABL ES Performing Organization Address [facility] Co de Phone Number [facility] [place] [address] * Potassium (05/12/2023 2:05 PM EDT) Potassium 3.9 3.5 - 5.0 mmol/L [facility] [...] Lab Alirio Hudson MD CHEMISTRY ORDERABLE S [facility] [place] [address] * (ABNORMAL) BLOOD GAS 2 ARTERIAL (05/12/2023 11:05 AM EDT) pH, Arterial 7.34(L) 7.35 - 7.45 [facility] PCO2, Arterial 42 35 - 45 mmHg [facility] PO2, Arterial 73(L) 85 - 104 mmHg [facility] Bicarbonate, Arterial 22.1 20.0 - 26.0 mmol/L [facility] Base Excess, Arterial -3.6(L) -3.0 - 3.0 mmol/L [facility] Hgb Blood Gas 9.3(L) 11.7 - 15.5 g/dL [facility] Oxyhemoglobin, Arterial 89.3(L) 94.0 - 97.0 % [facility] Carboxyhemoglob in, Arterial 0.2 % [facility] Comment: Nonsmokers: 0.5-1.5% COHB Smokers: Variable, but usually less than 10% Toxic: 20-30% COHB Lethal: Greater than 60% COHB Methemoglobin, Arterial 0.9 <=1.5 % [facility] Na Whole Blood 131(L) 135 - 145 mmol/L [facility] K Whole Blood 3.8 3.5 - 5.0 mmol/L [facility] Comment: Please note: Patients with WBC >100,000 may have falsely elevated Potassium levels. Contact the Clinical Chemistry Laboratory if there are any questions. ICa Whole Blood 1.04(L) 1.15 - 1.33 mmol/L [facility] Comment: Note: ??Total bilirubin higher than 20 mg/dL may lead to falsely low ionized calcium. CL Whole Blood 96(L) 98 - 107 mmol/L [facility] Gluc Whole Bld 152 65 - 199 mg/dL [facility] Comment:Diabetes: >=200 mg/d L plus symptoms. Lactate WB 2.8(H) 0.5 - 2.2 mmol/L [facility] FIO2 Art 40 % [facility] PF Ratio Art 182 [facility] Blood 05/12/2023 11:0 5 AM EDT 05/12/2023 11:05 AM EDT Alirio Hudson MD POINT OF CARE TEST ORDERABLES [facility] [place] [address] * (ABNORMAL) BLOOD GAS 2 ARTERIAL (05/12/2023 10:14 AM EDT) pH, Arterial 7.18(Criti gabrielle) 7.35 - 7.45 [facility] Comment:Noted by band instrument maker. PCO2, Arterial 45 35 - 45 mmHg [facility] PO2, Arterial 186(H) 85 - 104 mmHg [facility] Bicarbonate, Arterial 16.2(L) 20.0 - 26.0 mmol/L [facility] Base Excess, Arterial -12.2(L) -3.0 - 3.0 mmol/L [facility] Hgb Blood Gas 10.0(L) 11.7 - 15.5 g/dL [facility] Oxyhemoglobin, Arterial 97.0 94.0 - 97.0 % [facility] Carboxyhemoglob in, Arterial 0.2 % [facility] Comment: Nonsmokers: 0.5-1.5% COHB Smokers: Variable, but usually less than 10% Toxic: 20-30% COHB Lethal: Greater than 60% COHB Methemoglobin, Arterial 0.9 <=1.5 % [facility] Na Whole Blood 129(L) 135 - 145 mmol/L [facility] K Whole Blood 3.6 3.5 - 5.0 mmol/L [facility] Comment: Please note: Patients with WBC >100,000 may have falsely elevated Potassium levels. Contact the Clinical Chemistry Laboratory if there are any questions. ICa Whole Blood 1.10(L) 1.15 - 1.33 mmol/L [facility] Comment: Note: ??Total bilirubin higher than 20 mg/dL may lead to falsely low ionized calcium. CL Whole Blood 97(L) 98 - 107 mmol/L [facility] Gluc Whole Bld 161 65 - 199 mg/dL [facility] Comment:Diabetes: >=200 mg/d L plus symptoms. Lactate WB 3.3(H) 0.5 - 2.2 mmol/L [facility] FIO2 Art 100 % [facility] PF Ratio Art 186 [facility] Blood 05/12/2023 10:1 4 AM EDT 05/12/2023 10:14 AM EDT Alirio Hudson MD POINT OF CARE TEST ORDERABLES Performing Organization Address City/[facility]/ZIP Co de Phone Number [facility] [address] * EKG 12 Lead (05/12/2023 10:10 AM EDT) Ventricular rate 116 BPM MUSE SYSTEM Atrial Rate 116 BPM MUSE SYSTEM P-R Interval 158 ms MUSE SYSTEM QRS Duration 114 ms MUSE SYSTEM Q-T Interval 348 ms MUSE SYSTEM QTC Calculated (Bezet) 483 ms MUSE SYSTEM Calculated P [place] 37 degrees MUSE SYSTEM Calculated R [place] 31 degrees MUSE SYSTEM Calculated T [place] -138 degrees MUSE SYSTEM INTERPRETATION Sinus tachycardia with intermittent aberrant ventricular conduction Possible Left atrial enlargement Incomplete left bundle block Left ventricular hypertrophy with repolarization abnormality ( Sokolow-Orozco , [place] product ) ST & T wave abnormality in Inferolateral leads Abnormal ECG When compared with ECG of 10-MAY-2023 13:16, ST & T wave abnormality is more pronounced in inferolateral leads I personally reviewed the tracing and edited the fellows interpretation Confirmed by fellow MD Licea Andrew ([id number]) on 05/12/2023 1:04:20 PM Confirmed by MD Villareal Danette ([id number]) on 05/12/2023 9:28:34 PM MUSE SYSTEM 05/12/2023 10:1 0 AM EDT 05/12/2023 9:28 PM EDT Alirio Hudson MD ECG ORDERABLES Performing Organization Address City/[facility]/ZIP Co de Phone Number MUSE SYSTEM [...] who have questions please contact the health lpn care manager that requested your imaging first. ? Electronically signed by: Chyna Johnson MD, [facility] ??([phone]), at 05/12/2023 10:08 AM Narrative 05/12/2023 10:08 AM EDT EXAMINATION: XR CHEST ONE VIEW CLINICAL HISTORY: Post TAVR TECHNIQUE: 1 view of the chest COMPARISON: Chest radiograph from earlier today FINDINGS: Interval placement of endotracheal tube with tip terminating 2 cm above the shira. Interval placement of enteric tube projecting along the expected course of the esophagus and outside the [id number]. Interval retraction of right IJ approach pulmonary [...] expected course ofthe esophagus and outside the [id number]-al-hqcf. Interval retraction of right IJ approach pulmonary [...] patients who have questions please contactthe health lpn care manager that requested your imaging first. Electronically signed by: Chyna Johnson MD, [facility]([phone]), at 05/12/2023 10:08 AM Alirio Hudson MD IMG DX ORDERABLES * ECHO LMTD W/O CONTRAST W LMTD SPEC DOPP COLOR DOPP (05/12/2023 9:23 AM EDT) EF 20 [employer] SYSTEM Anatomical Region Laterality Modality Cardiac Other 05/12/2023 7:33 AM EDT Narrative 05/12/2023 10:18 AM EDT ? Echocardiogram Report Name: PURNIMA THACKER ?Study Date: 05/12/2023 07:33 AMBP: 96/63 mmHg ? Patient Location: [address] : 1955 ? Height: 154 cm ? Account: [id number] Age: 67 yrs ? Weight: 75 kg Gender: Female ?BSA: 1.7 m2 Ordering Physician: RADHA HOLLINS Referring Physician: RADHA HOLLINS Performed By: Dilma Bee RDCS Reason For Study: Guidance for TAVR procedure Exam Location: [facility]. Interpretation Summary PRE TAVR: There is [...] mL/m2. POST TAVR: Normal function of the xxgen-fb-finxh prosthesis. See below for hemodynamic parameters. Slight improvement in left and right ventricular systolic function. LVEF now 20-25%. No pericardial effusion. See report for additional findings. Procedure Limited - 78626. Doppler - 76074. Color Doppler - 39907. Left Ventricle Left ventricle is of normal [...] Chua MD - 05/12/2023 Echocardiogram Report Name: KIRSTIEPURNIMA Study Date: 307:33 AMBP: 96/63 mmHg Patient Location: [address] : 1955 Height: 154 cm Account: [id number] Age: 67 yrs Weight: 75 kg Gender: Female BSA: 1.7 m2 Ordering Physician: RADHA HOLLINS Referring Physician: RADHA HOLLINS Performed By: Dilma Bee RDCS Reason For Study: Guidance for TAVR procedure Exam Location: [facility]. Interpretation Summary PRE TAVR: There is [...] 28mL/m2. POST TAVR: Normal function of the bvnuc-yv-mzzml prosthesis. See belowfor hemodynamic parameters. Slight improvement in left and right ventricularsystolic function. LVEF now 20-25%. No pericardial effusion. See report for additional findings. Procedure Limited - 60929. Doppler - 14202. Color Doppler - 36134. Left Ventricle Left ventricle is of normal [...] ? Procedure Date: 05/12/2023 ? A #: [id number] ? Primary Physician: Young, Antelmo N ? Case #: [id number] ? File Name: [id number] ? Catheterization Order Number: [id number] ? [facility] ? Final Report [place], [place] ? Patient Name: ? Purnima M. Kirstie ? ID#: ?[id number] ? : ?1955 ? Procedure Date: ? May 12, 2023 ? Case #: ? [id number] ? Room: ? 6 ? Case Physicians: ?Antelmo Sharma M.D. ?Start: ?08:03 ?Alirio Hudson M.D. ?Admission: ??05/08/2023 ?Lynda Mcgowan M.D. ? Discharge: ??05/22/2023 ?Fellow: ? Rebekah Tejeda M.D. ? Referring Physician: ??Mario Alberto Chin M.D. ? Procedures: ?* Coronary Angiography ?* Left Heart Catheterization ?* Coronary Stent Insertion ?* Transcatheter Aortic Valve Replacement ?* Vascular Closure Device Deployment ?* Temporary Pacemaker Insertion In Utilization Review Rn ?* Endotracheal Intubation By Non-Cath Physician ?* [...] guide. ??A premounted 4.00 x 30 mm [place] ([place]) was ? deployed with a maximum [...] calculated STS risk score was 30.1%. A hmvxf-qo-hyrxf ?procedure was performed on the pre-existing bioprosthetic stented ?prosthesis. The priority of the gykbv-aw-dfawh procedure was Elective. ?The procedure was performed [...] Lai 3 Ultra RESILIA 23 mm THV (s/d=[id number]) transcatheter ?valve was inserted using standard technique. [...] to nor was it given in the ?hoisting laborer. ?Recommended anti-platelet/anti-thrombotic regimen: ?Continue aspirin 81 [...] regimen. ? Comments: ?Successful right transfemoral TAVR Myhrz-ok-Vfikn with a 23 mm Lai 3 ?THV. [...] insertion-coronary, access site angiography, ?temporary pacemaker in hoisting laborer, intubation-non cath physician, vascular ?closure device, transthoracic echo ??and TAVR. Dr. Alirio Hudson M.D. ?performed the left heart catheterization, access site angiography, ?temporary pacemaker in hoisting laborer, vascular closure device, transthoracic ?echo , [...] Purnima Thacker Procedure Date: 05/12/2023 A #: [id number] Primary Physician: Antelmo Sharma Case #: [id number] File Name: [id number] Catheterization Order Number: [id number] [facility] FinalReport [place], [place] Patient Name: Purnima Thacker ID#:[id number] :1955 Procedure Date: May 12, 2023 Case #: [id number] Room: 6 Case Physicians: Antelmo Sharma M.D. Start: 08:03 Alirio Hudson M.D. Admission:05/08/2023 Lynda Mcgowan M.D. Discharge:05/22/2023 Fellow: Rebekah Tejeda M.D. Referring Physician: Mario Alberto Chin M.D. Procedures: * Coronary Angiography * Left Heart Catheterization * Coronary Stent Insertion * Transcatheter Aortic Valve Replacement * Vascular Closure Device Deployment * Temporary Pacemaker Insertion In Utilization Review Rn * Endotracheal Intubation By Non-Cath Physician * [...] A premounted 4.00 x 30 mm [place] ([place]) was deployed with a maximum inflation [...] calculated STS risk score was 30.1%. A oksfo-by-rdhcw procedure was performed on the pre-existing bioprosthetic stented prosthesis. The priority of the htclp-qt-kwufp procedure wasElective. The procedure was performed under Moderate sedation performed byLynda Mcgowan M.D. (see anesthesia report for additional details). Alirio Hudson M.D. participated in the case (see Cardiac Surgery reportfor additional details). The TAVR sheath was a 14 Fr Corona eSheath Introducer and theaccess site was femoral. Rapid ventricular pacing was performed. An [place]ona Lai 3 Ultra RESILIA 23 mm THV (s/s=[id number])transcatheter valve was inserted using standard technique. The [...] prior to nor was it given inthe hoisting laborer. Recommended anti-platelet/anti-thrombotic regimen: Continue aspirin 81 [...] this regimen. Comments: Successful right transfemoral TAVR Nupsz-ts-Unjky with a 23 mmSapien 3 THV. We [...] insertion-coronary, access site angiography, temporary pacemaker in hoisting laborer, intubation-non cath physician,vascular closure device, transthoracic echo and TAVR. Dr. Alirio Hudson M.D. performed the left heart catheterization, access site angiography, temporary pacemaker in hoisting laborer, vascular closure device,transthoracic echo , TAVR and CPR during cath. Dr. Lynda Mcgowan M.D. performed theABG, anesthesia and intubation-non cath physician. Antelmo Sharma M.D. Electronically Signed by: Antelom Sharma M.D. Report Finalized: 05/12/2023 14:31 Report Last Ammended: 07/01/2023 11:30 Antelmo Sharma MD CARDIAC CATH ORDERAB LES * (ABNORMAL) Point of Care Blood Gas Historical (05/12/2023 8:50 AM EDT) pH, POC 7.20(Crit ical) 7.35 - 7.45 [facility] Comment:Critical value OK, C C Lab. pCO2, POC 42 35 - 45 mmHg [facility] pO2, POC 260(H) 85 - 104 mmHg [facility] Base Excess, POC -11.0(L) -3.0 - 3.0 mmol/L [facility] Bicarbonate, POC 16.7(L) 20.0 - 26.0 mmol/L [facility] Sodium, POC 129(L) 135 - 145 mmol/L [facility] POC Potassium 3.8 3.5 - 5.0 mmol/L [facility] Ionized Calcium, POC 1.12(L) 1.15 - 1.33 mmol/L [facility] POC Hematocrit 23.0(L) 34.0 - 45.0 % [facility] POC Calc Hgb 7.8(L) 11.2 - 15.7 g/dL [facility] Comment:The calculation of h emoglobin from hematocrit assumes a normal MCHC. POC Bgas Loc CC Lab [facility] Blood 05/12/2023 8:50 AM EDT 05/13/2023 12:00 PM EDT Alirio Hudson MD CHEMISTRY ORDERABLE S [facility] [place] [address] * (ABNORMAL) Point of Care Blood Gas Historical (05/12/2023 8:10 AM EDT) pH, POC 7.27(Crit ical) 7.35 - 7.45 [facility] Comment:Critical value OK, C C Lab. pCO2, POC 37 35 - 45 mmHg [facility] pO2, POC 29(Critic al) 85 - 104 mmHg [facility] Comment:Critical value OK, C C Lab. Base Excess, POC -10.0(L) -3.0 - 3.0 mmol/L [facility] Bicarbonate, POC 16.7(L) 20.0 - 26.0 mmol/L [facility] Sodium, POC 123(L) 135 - 145 mmol/L [facility] POC Potassium 4.0 3.5 - 5.0 mmol/L [facility] Ionized Calcium, POC 1.12(L) 1.15 - 1.33 mmol/L [facility] POC Hematocrit 27.0(L) 34.0 - 45.0 % [facility] POC Calc Hgb 9.2(L) 11.2 - 15.7 g/dL [facility] Comment:The calculation of h emoglobin from hematocrit assumes a normal MCHC. POC Bgas Loc CC Lab [facility] Blood 05/12/2023 8:10 AM EDT 05/13/2023 12:00 PM EDT Alirio Hudson MD CHEMISTRY ORDERABLE S [facility] [place] [address] * (ABNORMAL) Lactate, whole blood, send to lab [place] (05/12/2023 7:00 AM EDT) Lactate WB 2.4(H) 0.5 - 2.2 mmol/L [facility] Blood 05/12/2023 7:00 AM EDT 05/12/2023 7:09 AM EDT Narrative Resulting Agency Comment Spec In Lab Radha Hollins MD CHEMISTRY ORDERABL ES [facility] [place] [address] * (ABNORMAL) Comprehensive metabolic panel (non-fasting) (05/12/2023 6:00 AM EDT) Glucose 167 65 - 199 mg/dL [facility] Comment:Diabetes: >=200 mg/d L plus symptoms Blood Urea Nitrogen 67(H) 8 - 18 mg/dL [facility] Creatinine 2.01(H) 0.70 - 1.20 mg/dL [facility] Sodium 131(L) 135 - 145 mmol/L [facility] Potassium 4.3 3.5 - 5.0 mmol/L [facility] Comment: Please note: ??Patients with WBC >100,000 may have falsely elevated Potassium levels. ??For accurate Potassium quantification in these patients send serum separator tube (gold top) for subsequent determinations. ??Contact the Clinical Chemistry Laboratory if there are any questions. Chloride 97(L) 98 - 107 mmol/L [facility] Carbon Dioxide 14(L) 22 - 31 mmol/L [facility] Anion Gap 20(H) 5 - 15 mmol/L [facility] Calcium 8.6 8.5 - 10.5 mg/dL [facility] Protein, Total 6.3 6.1 - 8.0 g/dL [facility] Albumin 3.5 3.2 - 5.2 g/dL [facility] Aspartate Aminotransferase 1,435(H) 0 - 30 unit/L [facility] Alanine Aminotransferase 1,174(H) 0 - 30 unit/L [facility] Alkaline Phosphatase 100 35 - 105 unit/L [facility] Bilirubin, Total 0.9 0.2 - 1.3 mg/dL [facility] Est Glomerular Filtration Rate 27(L) >=60 mL/min/1. 73 m?? [facility] [...] Lab Radha Hollins MD CHEMISTRY ORDERABL ES [facility] [place] [address] * (ABNORMAL) Coox2 (05/12/2023 5:08 AM EDT) pO2, Coox 24 mmHg [facility] Hgb Blood Gas 10.4(L) 11.7 - 15.5 g/dL [facility] Oxyhemoglobin, Coox 30.7 % [facility] Carboxyhemoglo bin, Coox 0.3 % [facility] Comment: Nonsmokers: 0.5-1.5% COHB Smokers: Variable, but usually less than 10% Toxic: 20-30% COHB Lethal: Greater than 60% COHB Methemoglobin, Coox 0.8 <=1.5 % [facility] Source Coox Mixed Venous [facility] Blood 05/12/2023 5:08 AM EDT 05/12/2023 5:08 AM EDT Radha Hollins MD POINT OF CARE TEST ORDERABLES [facility] [place] [address] * (ABNORMAL) Coox2 (05/12/2023 3:21 AM EDT) pO2, Coox 25 mmHg [facility] Hgb Blood Gas 10.8(L) 11.7 - 15.5 g/dL [facility] Oxyhemoglobin, Coox 32.7 % [facility] Carboxyhemoglo bin, Coox 0.3 % [facility] Comment: Nonsmokers: 0.5-1.5% COHB Smokers: Variable, but usually less than 10% Toxic: 20-30% COHB Lethal: Greater than 60% COHB Methemoglobin, Coox 0.7 <=1.5 % [facility] Source Coox Mixed Venous [facility] Blood 05/12/2023 3:21 AM EDT 05/12/2023 3:21 AM EDT Radha Hollins MD POINT OF CARE TEST ORDERABLES [facility] [place] [address] * (ABNORMAL) BLOOD GAS 2 ARTERIAL (05/12/2023 3:18 AM EDT) pH, Arterial 7.34(L) 7.35 - 7.45 [facility] PCO2, Arterial 30(L) 35 - 45 mmHg [facility] PO2, Arterial 72(L) 85 - 104 mmHg [facility] Bicarbonate, Arterial 16.0(L) 20.0 - 26.0 mmol/L [facility] Base Excess, Arterial -9.8(L) -3.0 - 3.0 mmol/L [facility] Hgb Blood Gas 11.0(L) 11.7 - 15.5 g/dL [facility] Oxyhemoglobin, Arterial 89.8(L) 94.0 - 97.0 % [facility] Carboxyhemoglob in, Arterial 0.3 % [facility] Comment: Nonsmokers: 0.5-1.5% COHB Smokers: Variable, but usually less than 10% Toxic: 20-30% COHB Lethal: Greater than 60% COHB Methemoglobin, Arterial 0.7 <=1.5 % [facility] Na Whole Blood 131(L) 135 - 145 mmol/L [facility] K Whole Blood 4.2 3.5 - 5.0 mmol/L [facility] Comment: Please note: Patients with WBC >100,000 may have falsely elevated Potassium levels. Contact the Clinical Chemistry Laboratory if there are any questions. ICa Whole Blood 1.12(L) 1.15 - 1.33 mmol/L [facility] Comment: Note: ??Total bilirubin higher than 20 mg/dL may lead to falsely low ionized calcium. CL Whole Blood 100 98 - 107 mmol/L [facility] Gluc Whole Bld 160 65 - 199 mg/dL [facility] Comment:Diabetes: >=200 mg/d L plus symptoms. Lactate WB 2.7(H) 0.5 - 2.2 mmol/L [facility] Flow Art 5.0 LPM [facility] Blood 05/12/2023 3:18 AM EDT 05/12/2023 3:18 AM EDT Radha Hollins MD POINT OF CARE TEST ORDERABLES Performing Organization Address City/[facility] Co de Phone Number [facility] [place] [address] * (ABNORMAL) Coox2 (05/12/2023 1:14 AM EDT) pO2, Coox 28 mmHg [facility] Hgb Blood Gas 10.9(L) 11.7 - 15.5 g/dL [facility] Oxyhemoglobin, Coox 37.3 % [facility] Carboxyhemoglo bin, Coox 0.3 % [facility] Comment: Nonsmokers: 0.5-1.5% COHB Smokers: Variable, but usually less than 10% Toxic: 20-30% COHB Lethal: Greater than 60% COHB Methemoglobin, Coox 0.5 <=1.5 % [facility] Source Coox Mixed Venous [facility] Blood 05/12/2023 1:14 AM EDT 05/12/2023 1:14 AM EDT Radha Hollins MD POINT OF CARE TEST ORDERABLES Performing Organization Address City/[facility] Co de Phone Number [facility] [place] [address] * (ABNORMAL) BLOOD GAS 2 ARTERIAL (05/12/2023 1:06 AM EDT) pH, Arterial 7.34(L) 7.35 - 7.45 [facility] PCO2, Arterial 30(L) 35 - 45 mmHg [facility] PO2, Arterial 81(L) 85 - 104 mmHg [facility] Bicarbonate, Arterial 15.7(L) 20.0 - 26.0 mmol/L [facility] Base Excess, Arterial -10.1(L) -3.0 - 3.0 mmol/L [facility] Hgb Blood Gas 11.0(L) 11.7 - 15.5 g/dL [facility] Oxyhemoglobin, Arterial 92.3(L) 94.0 - 97.0 % [facility] Carboxyhemoglob in, Arterial 0.2 % [facility] Comment: Nonsmokers: 0.5-1.5% COHB Smokers: Variable, but usually less than 10% Toxic: 20-30% COHB Lethal: Greater than 60% COHB Methemoglobin, Arterial 0.6 <=1.5 % [facility] Na Whole Blood 131(L) 135 - 145 mmol/L [facility] K Whole Blood 4.2 3.5 - 5.0 mmol/L [facility] Comment: Please note: Patients with WBC >100,000 may have falsely elevated Potassium levels. Contact the Clinical Chemistry Laboratory if there are any questions. ICa Whole Blood 1.13(L) 1.15 - 1.33 mmol/L [facility] Comment: Note: ??Total bilirubin higher than 20 mg/dL may lead to falsely low ionized calcium. CL Whole Blood 99 98 - 107 mmol/L [facility] Gluc Whole Bld 132 65 - 199 mg/dL [facility] Comment:Diabetes: >=200 mg/d L plus symptoms. Lactate WB 2.7(H) 0.5 - 2.2 mmol/L [facility] Flow Art 5.0 LPM [facility] Blood 05/12/2023 1:06 AM EDT 05/12/2023 1:06 AM EDT Radha Hollins MD POINT OF CARE TEST ORDERABLES [facility] [place] [address] * (ABNORMAL) Differential, Automated (05/12/2023 1:05 AM EDT) Pathologist [facility] Neutrophil % 83.3 % [facility] Neutrophil Absolute 7.49(H) 1.70 - 6.10 x10(3)/mc L [facility] Lymph % 7.1 % [facility] Lymphocytes Abs 0.6(L) 0.9 - 3.2 x10(3)/mc L [facility] Monocyte % 8.9 % [facility] Monocyte Abs 0.8 0.3 - 0.9 x10(3)/mc L [facility] Eos % 0.0 % [facility] Eosinophils Abs 0.0 0.0 - 0.4 x10(3)/mc L [facility] Basophil % 0.1 % [facility] Baso Absolute 0.0 0.0 - 0.1 x10(3)/ L [facility] Immature Gran % 0.60 % [facility] Comment: Immature granulocytes(IG's)percentage and absolute count will include metamyelocytes, myelocytes, and promyelocytes. Blood smears from CBCs yielding IG's will be scanned manually for concordance. If this scan disagrees with the automated IG or if promyelocytes are noted, a manual differential will be performed. Immature Gran Absolute 0.05(H) 0.00 - 0.04 x10(3)/ L [facility] Blood 05/12/2023 1:05 AM EDT 05/12/2023 1:15 AM EDT Narrative Resulting Agency Comment Spec In Lab Gianni Fletcher MD HEMATOLOGY ORDERABLE S [facility] [place] [address] * (ABNORMAL) Hemogram (05/12/2023 1:05 AM EDT) [facility] White Blood Cell 9.0 4.0 - 9.5 x10(3)/mc L [facility] Red Blood Cell 3.01(L) 4.00 - 5.21 x10(6)/[facility] Hemoglobin 9.8(L) 11.7 - 15.5 g/dL [facility] Hematocrit 28.7(L) 35.7 - 45.8 % [facility] Mean Cell Volume 95.3(H) 82.6 - 94.4 fL [facility] Mean Cell Hemoglobin 32.6(H) 27.1 - 32.0 pg [facility] Mean Cell Hemoglobin Concentration 34.1 31.7 - 35.0 g/dL [facility] Platelet 186 145 - 357 x10(3)/mc L [facility] RDW Standard Deviation 43.7 37.0 - 46.0 fL [facility] RDW coefficient of variation 12.7 11.5 - 14.1 % [facility] Mean Platelet Volume 10.3 7.6 - 12.9 fL [facility] NRBC% auto 0.0 % [facility] NRBC Absolute 0.000 0.000 - 0.000 x10(3)/mc L [facility] Blood 05/12/2023 1:05 AM EDT 05/12/2023 1:15 AM EDT Narrative Resulting Agency Comment Spec In Lab Gianni Fletcher MD HEMATOLOGY ORDERABLE S [facility] [place] [address] * (ABNORMAL) Comprehensive metabolic panel (non-fasting) (05/12/2023 1:05 AM EDT) Glucose 141 65 - 199 mg/dL [facility] Comment:Diabetes: >=200 mg/d L plus symptoms Blood Urea Nitrogen 63(H) 8 - 18 mg/dL [facility] Creatinine 1.86(H) 0.70 - 1.20 mg/dL [facility] Sodium 131(L) 135 - 145 mmol/L [facility] Potassium 4.4 3.5 - 5.0 mmol/L [facility] Comment: Please note: ??Patients with WBC >100,000 may have falsely elevated Potassium levels. ??For accurate Potassium quantification in these patients send serum separator tube (gold top) for subsequent determinations. ??Contact the Clinical Chemistry Laboratory if there are any questions. Chloride 96(L) 98 - 107 mmol/L [facility] Carbon Dioxide 14(L) 22 - 31 mmol/L [facility] Anion Gap 21(H) 5 - 15 mmol/L [facility] Calcium 9.0 8.5 - 10.5 mg/dL [facility] Protein, Total 6.6 6.1 - 8.0 g/dL [facility] Albumin 3.9 3.2 - 5.2 g/dL [facility] Aspartate Aminotransferase 1,227(H) 0 - 30 unit/L [facility] Alanine Aminotransferase 1,097(H) 0 - 30 unit/L [facility] Alkaline Phosphatase 108(H) 35 - 105 unit/L [facility] Bilirubin, Total 1.0 0.2 - 1.3 mg/dL [facility] Est Glomerular Filtration Rate 29(L) >=60 mL/min/1. 73 m?? [facility] [...] Lab Radha Hollins MD CHEMISTRY ORDERABL ES [facility] [place] [address] * XR Chest One View (05/12/2023 1:00 [...] who have questions please contact the health lpn care manager that requested your imaging first. [...] patients who have questions please contactthe health lpn care manager that requested your imaging first. Radha Hollins MD IMG DX ORDERABLES * (ABNORMAL) Coox2 (05/12/2023 12:30 AM EDT) pO2, Coox 22 mmHg [facility] Hgb Blood Gas 10.9(L) 11.7 - 15.5 g/dL [facility] Oxyhemoglobin, Coox 25.1 % [facility] Carboxyhemoglo bin, Coox 0.3 % [facility] Comment: Nonsmokers: 0.5-1.5% COHB Smokers: Variable, but usually less than 10% Toxic: 20-30% COHB Lethal: Greater than 60% COHB Methemoglobin, Coox 1.4 <=1.5 % [facility] Source Coox Mixed Venous [facility] Blood 05/12/2023 12:3 0 AM EDT 05/12/2023 12:30 AM EDT Radha Hollins MD POINT OF CARE TEST ORDERABLES [facility] [place] [address] * XR Chest One View (05/11/2023 11:45 [...] who have questions please contact the health lpn care manager that requested your imaging first. [...] patients who have questions please contactthe health lpn care manager that requested your imaging first. Radha Hollins MD IMG DX ORDERABLES * (ABNORMAL) Lactate, whole blood, [place] [place] [place] (05/11/2023 7:40 PM EDT) Pathologist [facility] Lactate WB 4.8(Critic al) 0.5 - 2.2 mmol/L [facility] Comment:Called by: [facility], Read back by: Magdalena Baires, Date/Time:05/11/23 19:54. Blood 05/11/2023 7:40 PM EDT 05/11/2023 7:49 PM EDT Narrative Resulting Agency Comment Spec In Lab Radha Hollins MD CHEMISTRY ORDERABL ES [facility] [place] [address] * Urine culture (05/11/2023 7:22 PM EDT) Urine Culture 50,000-99,000 cfu/ml Normal mucosal herman Susceptibilit y testing not routinely performed for Coagulase Negative Staphylococcu s species and other Gram Positive organisms from urine. [facility] Clean Catch Urine 05/11/2023 7:22 PM EDT 05/11/2023 8:50 PM EDT Narrative Resulting Agency Comment Spec In Lab Brody Kaplan SENIOR OUTSIDE SALES REPRESENTATIVE MICROBIOLOGY - GENE RAL ORDERABLES Performing Organization Address [facility]/ZIP Co de Phone Number [facility] [place] [address] * (ABNORMAL) Urinalysis Microscopic Exam (05/11/2023 7:22 PM EDT) RBC, Urine 2 0 - 4 /HPF [facility] WBC, Urine >100(H) 0 - 5 /HPF [facility] Bacteria, Urine Occasional (A) None /HPF [facility] Squamous Epithelial Cells Raw Data, Urine 5(H) <=4 /HPF [facility] Hyaline Casts, Urine 3(H) 0 - 2 /LPF [facility] Clean Catch Urine 05/11/2023 7:22 PM EDT 05/11/2023 7:31 PM EDT Narrative Resulting Agency Comment Spec In Lab Brody Kaplan APRN URINE ORDERABLES Performing Organization Address [facility] Co de Phone Number [facility] [place] [address] * (ABNORMAL) Urinalysis with reflex Culture (05/11/2023 7:22 PM EDT) Glucose, Urine Dipstick Negative Negative mg/dL [facility] Protein, Urine Dipstick Trace(A) Negative mg/dL [facility] Bilirubin, Urine Dipstick Negative Negative mg/dL [facility] Comment: Clinical correlation required for positive Urine Bilirubin results as false positive may occur with some drugs and drug related products. If a false positive is suspected a serum total bilirubin should be considered if clinically indicated. Urobilinogen, Urine Dipstick Normal Normal mg/dL [facility] pH, Urn (dipstick) 5.0 5.0 - 8.0 [facility] Blood, Urine Dipstick Trace(A) Negative mg/dL [facility] Ketone, Urine Dipstick Negative Negative mg/dL [facility] Nitrite, Urine Dipstick Negative Negative [facility] Leukocytes, Urine Dipstick Moderate(A) Negative mcL [facility] Appearance, Urine Dipstick Cloudy(A) Clear [facility] Specific [place] Urine Automated >=1.030(A) 1.005 - 1.030 [facility] Color, Urine Dipstick Yellow Yellow [facility] Reflex to Culture Yes [facility] Clean Catch Urine 05/11/2023 7:22 PM EDT 05/11/2023 7:31 PM EDT Narrative Resulting Agency Comment Spec In Lab Brody Suyapa Eusebio OSBORN URINE ORDERABLES Performing Organization Address [facility] Co de Phone Number [facility] [place] [address] * (ABNORMAL) pro-Brain Natriuretic Peptide (05/11/2023 7:11 PM EDT) NT-proBNP >35,000(H) <=124 pg/mL [facility] Blood 05/11/2023 7:11 PM EDT 05/11/2023 7:26 PM EDT Narrative Resulting Agency Comment Spec In Lab Radha Hollins MD CHEMISTRY ORDERABL ES Performing Organization Address [facility] Co de Phone Number [facility] [place] [address] * (ABNORMAL) Lactate, whole blood, [place] lab [place] (05/11/2023 2:47 PM EDT) Lactate WB 2.9(H) 0.5 - 2.2 mmol/L [facility] Blood 05/11/2023 2:47 PM EDT 05/11/2023 2:53 PM EDT Narrative Resulting Agency Comment Spec In Lab Juan Luis Gonzalez MD CHEMISTRY ORDERABLES Performing Organization Address [facility] Co de Phone Number [facility] [place] [address] * (ABNORMAL) CT Angiogram Abdomen & Pelvis [...] who have questions please contact the health lpn care manager that requested your imaging first. ? Electronically signed by: Eileen Gomes MD, [facility] ([phone]), at 05/11/2023 2:42 PM Narrative 05/11/2023 2:42 [...] who have questions please contact the health lpn care manager that requested your imaging first. ? Electronically signed by: Cullen Narayanan MD, [facility] ([phone]), at 05/11/2023 4:37 PM Narrative 05/11/2023 4:37 [...] 610 mm2 Circumference: 88 mm Calcification: Mild Ojcouvk-nb-[id number] height: Left: 6.2 mm Right: 5.8 mm THORACIC AORTA Description: Normal course and caliber. ??Mild diffuse atherosclerotic changes. No acute aortopathy noted. Cloth Cutter dimensions: Aortic root: 27.6 mm Max ascending [...] 610 mm2 Circumference: 88 mm Calcification: Mild Ckiqwsc-lp-[id number] height: Left: 6.2 mm Right: 5.8 mm THORACIC AORTA Description: Normal course and caliber. Mild diffuse atheroscleroticchanges. No acute aortopathy noted. Cloth Cutter dimensions: Aortic root: 27.6 mm Max ascending [...] patients who have questions please contactthe health lpn care manager that requested your imaging first. Electronically signed by: Cullen Narayanan MD, [facility]([phone]), at 05/11/2023 4:37 PM Antelmo Sharma MD IM CT ORDERABLES * (ABNORMAL) Lactate, whole blood, send to lab [place] (05/11/2023 9:29 AM EDT) Lactate WB 3.1(H) 0.5 - 2.2 mmol/L [facility] Blood 05/11/2023 9:29 AM EDT 05/11/2023 9:38 AM EDT Narrative Resulting Agency Comment Spec In Lab Juan Luis Gonzalez MD CHEMISTRY ORDERABLES Performing Organization Address City/[facility]/ZIP Co de Phone Number [facility] [place] [address] * (ABNORMAL) Differential, Automated (05/11/2023 4:42 AM EDT) Neutrophil % 78.1 % [facility] Neutrophil Absolute 5.46 1.70 - 6.10 x10(3)/mc L [facility] Lymph % 10.6 % [facility] Lymphocytes Abs 0.7(L) 0.9 - 3.2 x10(3)/mc L [facility] Monocyte % 9.6 % [facility] Monocyte Abs 0.7 0.3 - 0.9 x10(3)/mc L [facility] Eos % 0.0 % [facility] Eosinophils Abs 0.0 0.0 - 0.4 x10(3)/mc L [facility] Basophil % 0.4 % [facility] Baso Absolute 0.0 0.0 - 0.1 x10(3)/mc L [facility] Immature Gran % 1.30 % [facility] Comment: Immature granulocytes(IG's)percentage and absolute count will include metamyelocytes, myelocytes, and promyelocytes. Blood smears from CBCs yielding IG's will be scanned manually for concordance. If this scan disagrees with the automated IG or if promyelocytes are noted, a manual differential will be performed. Immature Gran Absolute 0.09(H) 0.00 - 0.04 x10(3)/mc L [facility] Blood 05/11/2023 4:42 AM EDT 05/11/2023 4:49 AM EDT Narrative Resulting Agency Comment Spec In Lab Klaudia Reid MD HEMATOLOGY OR DERABLES Performing Organization Address City/[facility]/ZIP Co de Phone Number [facility] [place] [address] * (ABNORMAL) Hemogram (05/11/2023 4:42 AM EDT) White Blood Cell 7.0 4.0 - 9.5 x10(3)/mc L [facility] Red Blood Cell 3.44(L) 4.00 - 5.21 x10(6)/mc L [facility] Hemoglobin 11.1(L) 11.7 - 15.5 g/dL [facility] Hematocrit 32.7(L) 35.7 - 45.8 % [facility] Mean Cell Volume 95.1(H) 82.6 - 94.4 fL [facility] Mean Cell Hemoglobin 32.3(H) 27.1 - 32.0 pg [facility] Mean Cell Hemoglobin Concentration 33.9 31.7 - 35.0 g/dL [facility] Platelet 165 145 - 357 x10(3)/mc L [facility] RDW Standard Deviation 43.1 37.0 - 46.0 fL [facility] RDW coefficient of variation 12.7 11.5 - 14.1 % [facility] Mean Platelet Volume 10.1 7.6 - 12.9 fL [facility] NRBC% auto 0.0 % [facility] NRBC Absolute 0.000 0.000 - 0.000 x10(3)/ L [facility] Blood 05/11/2023 4:42 AM EDT 05/11/2023 4:49 AM EDT Narrative Resulting Agency Comment Spec In Lab Klaudia Reid MD HEMATOLOGY OR DERABLES Performing Organization Address [facility]/State/[facility] Co de Phone Number [facility] [place] [address] * Heparin (unfractionated) Level (05/11/2023 4:42 AM EDT) UF Heparin 0.46 IU/mL [facility] Comment: Heparin (anti-Xa) levels [...] Lab Radha Hollins MD HEMATOLOGY ORDERAB LES [facility] [place] [address] * (ABNORMAL) Comprehensive metabolic panel (non-fasting) (05/11/2023 4:42 AM EDT) Glucose 143 65 - 199 mg/dL [facility] Comment:Diabetes: >=200 mg/d L plus symptoms Blood Urea Nitrogen 42(H) 8 - 18 mg/dL [facility] Creatinine 1.24(H) 0.70 - 1.20 mg/dL [facility] Sodium 134(L) 135 - 145 mmol/L [facility] Potassium 4.6 3.5 - 5.0 mmol/L [facility] Comment: Please note: ??Patients with WBC >100,000 may have falsely elevated Potassium levels. ??For accurate Potassium quantification in these patients send serum separator tube (gold top) for subsequent determinations. ??Contact the Clinical Chemistry Laboratory if there are any questions. Chloride 99 98 - 107 mmol/L [facility] Carbon Dioxide 14(L) 22 - 31 mmol/L [facility] Anion Gap 21(H) 5 - 15 mmol/L [facility] Calcium 9.6 8.5 - 10.5 mg/dL [facility] Protein, Total 7.2 6.1 - 8.0 g/dL [facility] Albumin 3.7 3.2 - 5.2 g/dL [facility] Aspartate Aminotransferase 144(H) 0 - 30 unit/L [facility] Comment:result rechecked-ssc Alanine Aminotransferase 130(H) 0 - 30 unit/L [facility] Comment:result rechecked-ssc Alkaline Phosphatase 72 35 - 105 unit/L [facility] Bilirubin, Total 0.8 0.2 - 1.3 mg/dL [facility] Est Glomerular Filtration Rate 48(L) >=60 mL/min/1. 73 m?? [facility] [...] Lab Radha Hollins MD CHEMISTRY ORDERABL ES [facility] [place] [address] * EKG 12 Lead (05/10/2023 1:16 PM EDT) Ventricular rate 118 BPM MUSE SYSTEM Atrial Rate 118 BPM MUSE SYSTEM P-R Interval 152 ms MUSE SYSTEM QRS Duration 104 ms MUSE SYSTEM Q-T Interval 316 ms MUSE SYSTEM QTC Calculated (Bezet) 442 ms MUSE SYSTEM Calculated P [place] 29 degrees MUSE SYSTEM Calculated R [place] 18 degrees MUSE SYSTEM Calculated T [place] -173 degrees MUSE SYSTEM INTERPRETATION Sinus tachycardia Minimal voltage criteria for LVH, may be normal variant ( [place] product ) Septal infarct , age undetermined ST & T wave abnormality, consider lateral ischemia Abnormal ECG When compared with ECG of 10-MAY-2023 07:59, Fusion complexes are no longer Present Premature ventricular complexes are no longer Present ST no longer depressed in Anterior leads Confirmed by MD Villareal Danette ([id number]) on 05/10/2023 8:47:46 PM MUSE SYSTEM 05/10/2023 1:16 PM EDT 05/10/2023 8:47 PM EDT Juan Luis Gonzalez MD ECG ORDERABLES MUSE SYSTEM * Lactate, whole blood, send to lab [place] (05/10/2023 11:52 AM EDT) Lactate WB 1.8 0.5 - 2.2 mmol/L [facility] Blood 05/10/2023 11:5 2 AM EDT 05/10/2023 12:13 PM EDT Narrative Resulting Agency Comment Spec In Lab Juan Luis Gonzalez MD CHEMISTRY ORDERABLES Performing Organization Address City/[facility]/ZIP Co de Phone Number [facility] [place] [address] * XR Chest One View (05/10/2023 11:16 [...] who have questions please contact the health lpn care manager that requested your imaging first. ? Electronically signed by: ALIX RUVALCABA MD, [facility] ([phone]), at 05/10/2023 1:25 PM Narrative 05/10/2023 1:25 [...] patients who have questions please contactthe health lpn care manager that requested your imaging first. Electronically signed by: ALIX RUVALCABA MD, [facility]([phone]), at 05/10/2023 1:25 PM Juan Luis Gonzalez MD IMG DX ORDERABLES * EKG 12 Lead (05/10/2023 7:59 AM EDT) Ventricular rate 115 BPM MUSE SYSTEM Atrial Rate 115 BPM MUSE SYSTEM P-R Interval 142 ms MUSE SYSTEM QRS Duration 102 ms MUSE SYSTEM Q-T Interval 322 ms MUSE SYSTEM QTC Calculated (Bezet) 445 ms MUSE SYSTEM Calculated P [place] 36 degrees MUSE SYSTEM Calculated R [place] 28 degrees MUSE SYSTEM Calculated T [place] -119 degrees MUSE SYSTEM INTERPRETATION Sinus tachycardia with frequent Premature ventricular complexes and Fusion complexes ST & T wave abnormality, consider lateral ischemia Abnormal ECG When compared with ECG of 08-MAY-2023 15:51, No significant change was found I personally reviewed the tracing and edited the fellows interpretation Confirmed by fellow MD Anitha, Carissa ([id number]) on 05/11/2023 6:19:54 AM Confirmed by MD Tram, Chel ([id number]) on 05/11/2023 3:18:56 PM MUSE SYSTEM 05/10/2023 7:59 AM EDT 05/11/2023 3:18 PM EDT Radha Hollins MD ECG ORDERABLES MUSE SYSTEM * (ABNORMAL) Differential, Automated (05/10/2023 2:28 AM EDT) Neutrophil % 77.1 % [facility] Neutrophil Absolute 4.01 1.70 - 6.10 x10(3)/mc L [facility] Lymph % 14.0 % [facility] Lymphocytes Abs 0.7(L) 0.9 - 3.2 x10(3)/mc L [facility] Monocyte % 7.7 % [facility] Monocyte Abs 0.4 0.3 - 0.9 x10(3)/mc L [facility] Eos % 0.4 % [facility] Eosinophils Abs 0.0 0.0 - 0.4 x10(3)/mc L [facility] Basophil % 0.4 % [facility] Baso Absolute 0.0 0.0 - 0.1 x10(3)/mc L [facility] Immature Gran % 0.40 % [facility] Comment: Immature granulocytes(IG's)percentage and absolute count will include metamyelocytes, myelocytes, and promyelocytes. Blood smears from CBCs yielding IG's will be scanned manually for concordance. If this scan disagrees with the automated IG or if promyelocytes are noted, a manual differential will be performed. Immature Gran Absolute 0.02 0.00 - 0.04 x10(3)/mc L [facility] Blood 05/10/2023 2:28 AM EDT 05/10/2023 2:57 AM EDT Narrative Resulting Agency Comment Spec In Lab Klaudia Reid MD HEMATOLOGY OR DERABLES Performing Organization Address City/[facility]/ZIP Co de Phone Number [facility] [place] [address] * (ABNORMAL) Hemogram (05/10/2023 2:28 AM EDT) White Blood Cell 5.2 4.0 - 9.5 x10(3)/mc L [facility] Red Blood Cell 3.11(L) 4.00 - 5.21 x10(6)/mc L [facility] Hemoglobin 10.2(L) 11.7 - 15.5 g/dL [facility] Hematocrit 30.2(L) 35.7 - 45.8 % [facility] Mean Cell Volume 97.1(H) 82.6 - 94.4 fL [facility] Mean Cell Hemoglobin 32.8(H) 27.1 - 32.0 pg [facility] Mean Cell Hemoglobin Concentration 33.8 31.7 - 35.0 g/dL [facility] Platelet 151 145 - 357 x10(3)/mc L [facility] RDW Standard Deviation 44.9 37.0 - 46.0 fL [facility] RDW coefficient of variation 12.8 11.5 - 14.1 % [facility] Mean Platelet Volume 9.8 7.6 - 12.9 fL [facility] NRBC% auto 0.0 % [facility] NRBC Absolute 0.000 0.000 - 0.000 x10(3)/mc L [facility] Blood 05/10/2023 2:28 AM EDT 05/10/2023 2:57 AM EDT Narrative Resulting Agency Comment Spec In Lab Klaudia Reid MD HEMATOLOGY OR DERABLES Performing Organization Address City/[facility]/ZIP Co de Phone Number [facility] [place] [address] * (ABNORMAL) Comprehensive metabolic panel (non-fasting) (05/10/2023 2:28 AM EDT) Glucose 100 65 - 199 mg/dL [facility] Comment:Diabetes: >=200 mg/d L plus symptoms Blood Urea Nitrogen 30(H) 8 - 18 mg/dL [facility] Creatinine 0.90 0.70 - 1.20 mg/dL [facility] Sodium 134(L) 135 - 145 mmol/L [facility] Potassium 4.1 3.5 - 5.0 mmol/L [facility] Comment: Please note: ??Patients with WBC >100,000 may have falsely elevated Potassium levels. ??For accurate Potassium quantification in these patients send serum separator tube (gold top) for subsequent determinations. ??Contact the Clinical Chemistry Laboratory if there are any questions. Chloride 102 98 - 107 mmol/L [facility] Carbon Dioxide 20(L) 22 - 31 mmol/L [facility] Anion Gap 12 5 - 15 mmol/L [facility] Calcium 9.3 8.5 - 10.5 mg/dL [facility] Protein, Total 6.4 6.1 - 8.0 g/dL [facility] Albumin 3.7 3.2 - 5.2 g/dL [facility] Aspartate Aminotransferase 24 0 - 30 unit/L [facility] Alanine Aminotransferase 14 0 - 30 unit/L [facility] Alkaline Phosphatase 70 35 - 105 unit/L [facility] Bilirubin, Total 0.5 0.2 - 1.3 mg/dL [facility] Est Glomerular Filtration Rate 70 >=60 mL/min/1. 73 m?? [facility] [...] Lab Radha Hollins [place] [address] * Heparin (unfractionated) Level (05/10/2023 2:28 AM EDT) [facility] UF Heparin 0.37 IU/mL [facility] Comment: Heparin (anti-Xa) levels should [...] Lab Radha Hollins [place] [address] * (ABNORMAL) Differential, Automated (05/09/2023 4:00 AM EDT) [facility] Neutrophil % 81.7 % [facility] Neutrophil Absolute 5.26 1.70 - 6.10 x10(3)/mc L [facility] Lymph % 10.7 % [facility] Lymphocytes Abs 0.7(L) 0.9 - 3.2 x10(3)/mc L [facility] Monocyte % 6.5 % [facility] Monocyte Abs 0.4 0.3 - 0.9 x10(3)/mc L [facility] Eos % 0.5 % [facility] Eosinophils Abs 0.0 0.0 - 0.4 x10(3)/mc L [facility] Basophil % 0.3 % [facility] Baso Absolute 0.0 0.0 - 0.1 x10(3)/mc L [facility] Immature Gran % 0.30 % [facility] Comment: Immature granulocytes(IG's)percentage and absolute count will include metamyelocytes, myelocytes, and promyelocytes. Blood smears from CBCs yielding IG's will be scanned manually for concordance. If this scan disagrees with the automated IG or if promyelocytes are noted, a manual differential will be performed. Immature Gran Absolute 0.02 0.00 - 0.04 x10(3)/mc L [facility] Blood 05/09/2023 4:00 AM EDT 05/09/2023 4:19 AM EDT Narrative Resulting Agency Comment Spec In Lab Klaudia Reid MD HEMATOLOGY OR DERABLES Performing Organization Address City/State/[facility] Co de Phone Number [facility] [place] [address] * (ABNORMAL) Hemogram (05/09/2023 4:00 AM EDT) White Blood Cell 6.4 4.0 - 9.5 x10(3)/mc L [facility] Red Blood Cell 3.15(L) 4.00 - 5.21 x10(6)/mc L [facility] Hemoglobin 10.2(L) 11.7 - 15.5 g/dL [facility] Hematocrit 30.3(L) 35.7 - 45.8 % [facility] Mean Cell Volume 96.2(H) 82.6 - 94.4 fL [facility] Mean Cell Hemoglobin 32.4(H) 27.1 - 32.0 pg [facility] Mean Cell Hemoglobin Concentration 33.7 31.7 - 35.0 g/dL [facility] Platelet 151 145 - 357 x10(3)/mc L [facility] RDW Standard Deviation 44.7 37.0 - 46.0 fL [facility] RDW coefficient of variation 12.8 11.5 - 14.1 % [facility] Mean Platelet Volume 9.4 7.6 - 12.9 fL [facility] NRBC% auto 0.0 % [facility] NRBC Absolute 0.000 0.000 - 0.000 x10(3)/mc L [facility] Blood 05/09/2023 4:00 AM EDT 05/09/2023 4:19 AM EDT Narrative Resulting Agency Comment Spec In Lab Klaudia Reid MD HEMATOLOGY OR DERABLES Performing Organization Address [facility] de Phone Number [facility] [place] [address] * Heparin (unfractionated) Level (05/09/2023 4:00 AM EDT) UF Heparin 0.47 IU/mL [facility] Comment: Heparin (anti-Xa) levels [...] MD HEMATOLOGY ORDERAB LES Performing Organization Address [facility] Co de Phone Number [facility] [place] [address] * (ABNORMAL) Comprehensive metabolic panel (non-fasting) (05/09/2023 4:00 AM EDT) Glucose 108 65 - 199 mg/dL [facility] Comment:Diabetes: >=200 mg/d L plus symptoms Blood Urea Nitrogen 31(H) 8 - 18 mg/dL [facility] Creatinine 1.03 0.70 - 1.20 mg/dL [facility] Sodium 137 135 - 145 mmol/L [facility] Potassium 4.4 3.5 - 5.0 mmol/L [facility] Comment: Please note: ??Patients with WBC >100,000 may have falsely elevated Potassium levels. ??For accurate Potassium quantification in these patients send serum separator tube (gold top) for subsequent determinations. ??Contact the Clinical Chemistry Laboratory if there are any questions. Chloride 102 98 - 107 mmol/L [facility] Carbon Dioxide 20(L) 22 - 31 mmol/L [facility] Anion Gap 15 5 - 15 mmol/L [facility] Calcium 9.3 8.5 - 10.5 mg/dL [facility] Protein, Total 6.6 6.1 - 8.0 g/dL [facility] Albumin 3.8 3.2 - 5.2 g/dL [facility] Aspartate Aminotransferase 32(H) 0 - 30 unit/L [facility] Alanine Aminotransferase 18 0 - 30 unit/L [facility] Alkaline Phosphatase 78 35 - 105 unit/L [facility] Bilirubin, Total 0.5 0.2 - 1.3 mg/dL [facility] Est Glomerular Filtration Rate 60 >=60 mL/min/1. 73 m?? [facility] [...] Lab Radha Hollins MD CHEMISTRY ORDERABL ES [facility] [place] [address] * (ABNORMAL) pro-Brain Natriuretic Peptide (05/08/2023 4:00 PM EDT) NT-proBNP 25,503(H) <=124 pg/mL [facility] Blood Venous Draw / Unknown 05/08/2023 4:00 PM EDT 05/08/2023 4:25 PM EDT Narrative Resulting Agency Comment Spec In Lab Juan Luis Gonzalez MD CHEMISTRY ORDERABLES Performing Organization Address [facility] Co de Phone Number [facility] [place] [address] * Magnesium (05/08/2023 4:00 PM EDT) Magnesium 0.82 0.69 - 1.07 mmol/L [facility] Blood 05/08/2023 4:00 PM EDT 05/08/2023 4:06 PM EDT Narrative Resulting Agency Comment Spec In Lab Enrique Chua MD CHEMISTRY ORDERABLES Performing Organization Address [facility] de Phone Number [facility] [place] [address] * Potassium (05/08/2023 4:00 PM EDT) Potassium 3.9 3.5 - 5.0 mmol/L [facility] Comment: Please note: ??Patients [...] MD CHEMISTRY ORDERABL ES Performing Organization Address [facility] Co de Phone Number [facility] [place] [address] * Heparin (unfractionated) Level (05/08/2023 4:00 PM EDT) UF Heparin 0.43 IU/mL [facility] Comment: Heparin (anti-Xa) levels should [...] MD HEMATOLOGY ORDERAB LES Performing Organization Address [facility] [place] [address] * EKG 12 Lead (05/08/2023 3:51 PM EDT) [facility] Ventricular rate 98 BPM MUSE SYSTEM Atrial Rate 98 BPM MUSE SYSTEM P-R Interval 150 ms MUSE SYSTEM QRS Duration 102 ms MUSE SYSTEM Q-T Interval 358 ms MUSE SYSTEM QTC Calculated (Bezet) 457 ms MUSE SYSTEM Calculated P [place] 38 degrees MUSE SYSTEM Calculated R [place] 48 degrees MUSE SYSTEM Calculated T [place] -112 degrees MUSE SYSTEM INTERPRETATION Sinus rhythm with frequent and consecutive Premature ventricular and fusion complexes Septal infarct , age undetermined ST & T wave abnormality, consider anterolateral ischemia Abnormal ECG When compared with ECG of 09-NOV-2022 11:17, T wave inversion now evident in Anterolateral leads Confirmed by MD Harsihl, Enrique Bell ([id number]) on 05/10/2023 8:11:46 AM MUSE SYSTEM 05/08/2023 3:51 PM EDT 05/10/2023 8:11 AM EDT Radha Hollins MD ECG ORDERABLES Performing Organization Address City/[facility] Co de Phone Number MUSE SYSTEM * (ABNORMAL) Differential, Automated (05/08/2023 11:38 AM EDT) Neutrophil % 71.3 % [facility] Neutrophil Absolute 2.91 1.70 - 6.10 x10(3)/mc L [facility] Lymph % 19.1 % [facility] Lymphocytes Abs 0.8(L) 0.9 - 3.2 x10(3)/mc L [facility] Monocyte % 9.0 % [facility] Monocyte Abs 0.4 0.3 - 0.9 x10(3)/[facility] Eos % 0.2 % [facility] Eosinophils Abs 0.0 0.0 - 0.4 x10(3)/[facility] Basophil % 0.2 % [facility] Baso Absolute 0.0 0.0 - 0.1 x10(3)/[facility] Immature Gran % 0.20 % [facility] Comment: Immature granulocytes(IG's)percentage and absolute count will include metamyelocytes, myelocytes, and promyelocytes. Blood smears from CBCs yielding IG's will be scanned manually for concordance. If this scan disagrees with the automated IG or if promyelocytes are noted, a manual differential will be performed. Immature Gran Absolute 0.01 0.00 - 0.04 x10(3)/[facility] Blood 05/08/2023 11:3 8 AM EDT 05/08/2023 11:44 AM EDT Narrative Resulting Agency Comment Spec In Lab Lincoln Sal MD HEMATOLOGY ORDERA BLES [facility] [place] [address] * (ABNORMAL) Hemogram (05/08/2023 11:38 AM EDT) White Blood Cell 4.1 4.0 - 9.5 x10(3)/ L [facility] Red Blood Cell 3.05(L) 4.00 - 5.21 x10(6)/[facility] Hemoglobin 10.2(L) 11.7 - 15.5 g/dL [facility] Hematocrit 29.6(L) 35.7 - 45.8 % [facility] Mean Cell Volume 97.0(H) 82.6 - 94.4 fL [facility] Mean Cell Hemoglobin 33.4(H) 27.1 - 32.0 pg [facility] Mean Cell Hemoglobin Concentration 34.5 31.7 - 35.0 g/dL [facility] Platelet 136(L) 145 - 357 x10(3)/mc L [facility] RDW Standard Deviation 44.3 37.0 - 46.0 fL [facility] RDW coefficient of variation 12.6 11.5 - 14.1 % [facility] Mean Platelet Volume 9.4 7.6 - 12.9 fL [facility] NRBC% auto 0.0 % [facility] NRBC Absolute 0.000 0.000 - 0.000 x10(3)/mc L [facility] Blood 05/08/2023 11:3 8 AM EDT 05/08/2023 11:44 AM EDT Narrative Resulting Agency Comment Spec In Lab Lincoln Sal MD HEMATOLOGY ORDERA BLES Performing Organization Address City/[facility] Co de Phone Number [facility] [place] [address] * TSH (05/08/2023 11:38 AM EDT) Thyroid Stimulating Hormone 1.27 0.27 - 4.20 mcIU/mL [facility] Comment: Reference Interval (mcIU/mL): Females: ??First Trimester: 0.23-3.88 ??Second Trimester: 0.22-3.90 ??Third Trimester: 0.44-4.66 Blood 05/08/2023 11:3 8 AM EDT 05/08/2023 11:44 AM EDT Narrative Resulting Agency Comment Spec In Lab Enrique Chua MD CHEMISTRY ORDERABLES Performing Organization Address City/[facility]/ZIP Co de Phone Number [facility] [place] [address] * (ABNORMAL) Phosphorus (05/08/2023 11:38 AM EDT) Phosphorus 4.7(H) 2.5 - 4.5 mg/dL [facility] Blood 05/08/2023 11:3 8 AM EDT 05/08/2023 11:44 AM EDT Narrative Resulting Agency Comment Spec In Lab Enrique Chua MD CHEMISTRY ORDERABLES Performing Organization Address [facility] Co de Phone Number [facility] [place] [address] * Magnesium (05/08/2023 11:38 AM EDT) Magnesium 0.76 0.69 - 1.07 mmol/L [facility] Blood 05/08/2023 11:3 8 AM EDT 05/08/2023 11:44 AM EDT Narrative Resulting Agency Comment Spec In Lab Enrique Chua MD CHEMISTRY ORDERABLES Performing Organization Address [facility] de Phone Number [facility] [place] [address] * (ABNORMAL) Basic Metabolic Panel (non-fasting) (05/08/2023 11:38 AM EDT) Glucose 97 65 - 199 mg/dL [facility] Comment:Diabetes: >=200 mg/d L plus symptoms Blood Urea Nitrogen 27(H) 8 - 18 mg/dL [facility] Creatinine 1.02 0.70 - 1.20 mg/dL [facility] Sodium 139 135 - 145 mmol/L [facility] Potassium 4.2 3.5 - 5.0 mmol/L [facility] Comment: Please note: ??Patients with WBC >100,000 may have falsely elevated Potassium levels. ??For accurate Potassium quantification in these patients send serum separator tube (gold top) for subsequent determinations. ??Contact the Clinical Chemistry Laboratory if there are any questions. Chloride 105 98 - 107 mmol/L [facility] Carbon Dioxide 20(L) 22 - 31 mmol/L [facility] Anion Gap 14 5 - 15 mmol/L [facility] Calcium 9.4 8.5 - 10.5 mg/dL [facility] Est Glomerular Filtration Rate 60 >=60 mL/min/1. 73 m?? [facility] [...] In Lab Enrique Chua MD CHEMISTRY ORDERABLES [facility] [place] [address] * ECHO COMPLETE (05/08/2023 11:02 AM EDT) EF 25 HEARTLAB SYSTEM Anatomical Region Laterality Modality Cardiac Other 05/08/2023 10:0 3 AM EDT Narrative 05/08/2023 11:51 AM EDT ? Echocardiogram Report Name: PURNIMA THACKER ?Study Date: 05/08/2023 10:03 AMBP: 92/64 mmHg ? Patient Location: CC^CV29^A : 1955 ? Height: 155 cm ? Account: [id number] Age: 67 yrs ? Weight: 78 kg Gender: Female ?BSA: 1.8 m2 Ordering Physician: ENRIQUE CHUA Referring Physician: MARIO ALBERTO CHIN Performed By: CHUCKIE Canchola Reason For Study: SAVR Stenosis Exam Location: [facility]. Interpretation Summary -Left ventricle is severely [...] worsening stenosis. Mitral regurgitation is similar. Procedure Complete-[id number]. Satisfactory quality. There is normal sinus rhythm. [...] Study Date: 0:03 AMBP: 92/64 mmHg Patient Location:[facility]^CV29^A : 1955 Height: 155 cm Account: [id number] Age: 67 yrs Weight: 78 kg Gender: Female BSA: 1.8 m2 Ordering Physician: ENRIQUE CHUA Referring Physician: MARIO ALBERTO CHIN Performed By: CHUCKIE Canchola Reason For Study: SAVR Stenosis Exam Location: [facility]. Interpretation Summary -Left ventricle is severely [...] suggestsworsening stenosis. Mitral regurgitation is similar. Procedure Complete-[id number]. Satisfactory quality. There is normal sinus rhythm. 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 Mild coronary artery disease by [facility] 11/09/2022 Mixed connective tissue disease [...] by [facility] 11/09/2022 Stenosis of prosthetic aortic [...] VALDO) 0832 (Given - Provider: Kia Gallego, RN) 08 (Given - Provider: Kia Gallego, VALDO) lidocaine [...] Kia Gallego RN)2012 (Given - Provider: Favian cMkeon RN) 0828 (Given - Provider: Kia Gallego [...] RN)2053 (Given - Provider: Favian Mckeon, VALDO) 08 (Given - Provider: Kia Gallego, VALDO)2012 (Given - Provider: Favian Mckeon RN) 08 (Given - Provider: Kia Gallego, VALDO) PRN [...] Routine 1757 (Given - Provider: Gabino Calhoun RN)2343 (Given - Provider: Petros Valiente RN) bisacodyL [...] post-op day 1 in the AM Give NE if unable to take PO, Routine Group [...] Routine documented in this encounter Care Teams Quality Assurance Supervisor Final Relationship Specialty Start Date End Date Magdalena Acosta MD [address] [place] [address] PCP - General Family Medicine 02/05/23 documented as of this encounter
--- OUTSIDE RECORDS SUMMARY | 2024-05-23 14:08 | XMS_ITS | Encounter Summary ---
Author Organization [facility] Address [facility] [place] [address] Care Team Providers Care Power Shovel Engineer Name Role Phone Ashley Quirogan Sylvia ANURAG Primary Care Provider [phone] Encounter Details Date Type Department Care Team (Late st Contact Info) Description 01/14/2023 Refill Dermatology at [address] [address] Lupe Connor RN Social History [...] She would like the medication called into [email or web address] in [facility]. Discussed with [...] PM EST Hospital Encounter Outpatient [place] [phone] Markel Borjas MD [facility] [address] [place] [address] 06/05/2024 2:00 PM EST - 06/05/2024 3:00 PM EST Surgery Outpatient [place] [phone] Markel Borjas MD [facility] [address] [place] [address] (OSC MSURG) BONE MARROW BIOPSY AND ASPIRATION; DIAGNOSTIC (WRVU 1.44) 06/23/2024 2:00 PM EST Office Visit Hematology [place] [phone] Markel Borjas MD [facility] [address] [place] [address] 03/01/2025 4:15 PM EDT Office Visit Dermatology at [address] [place] [address] Marek Bonilla MD [address], [place] [address] Scheduled Procedures Name Priority Associated Diagnoses Date/Ti me (OSC MSURG) BONE MARROW BIOPSY AND ASPIRATION; DIAGNOSTIC (WRVU 1.44) Anemia, in pt with longstanding neutropenia 06/05/2024 2:00 PM EST documented as of this encounter Visit Diagnoses Not on filedocumented in this encounter Care Teams Power Shovel Engineer Relationship Specialty Start Date End Date Deborah Quiroga APRN PCP - General Family Medicine 03/24/16 02/04/23 documented as of this encounter
--- OUTSIDE RECORDS SUMMARY | 2024-05-23 14:08 | XMS_ITS | Encounter Summary ---
[place] [address] Care Team Providers Care Ux Architect Name Role Phone Magdalena Acosta MD Primary Care Provider [phone] Encounter Details Date Type Department Care Team [...] PM EST Hospital Encounter Outpatient [place] [phone] Markel Borjas MD [facility] [address] HEMATOLOGY [place] [address] 06/05/2024 2:00 PM EST - 06/05/2024 3:00 PM EST Surgery Outpatient [place] [phone] Markel Borjas MD [facility] [address] HEMATOLOGY [place] [address] (OSC MSURG) BONE MARROW BIOPSY AND ASPIRATION; DIAGNOSTIC (WRVU 1.44) 06/23/2024 2:00 PM EST Office Visit Hematology [place] [address] Markel Borjas MD [facility] [address] HEMATOLOGY [place] [address] 03/01/2025 4:15 PM EDT Office Visit Dermatology at [place] [address] [place] [phone] Marek Bonilla MD [address], [place] [address] Scheduled Procedures Name Priority Associated Diagnoses Date/Ti me (OSC MSURG) BONE MARROW BIOPSY AND ASPIRATION; DIAGNOSTIC (WRVU 1.44) Anemia, in pt with longstanding neutropenia 06/05/2024 2:00 PM EST documented as of this encounter Visit Diagnoses Not on filedocumented in this encounter Care Teams Ux Architect Relationship Specialty Start Date End Date Magdalena Acosta MD [address] [place] [address] PCP - General Family Medicine 02/05/23 documented as of this encounter
--- OUTSIDE RECORDS SUMMARY | 2024-05-23 14:08 | XMS_ITS | Encounter Summary ---
Author Organization [facility] [place] [address] Care Team Providers Care Lay Brother Name Role Phone Deborah Quiroga APRN Primary Care Provider Encounter Details Date Type Department Care Team (Latest Contact Info) Description 07/03/2022 12:28 PM EST - 07/03/2022 1:35 PM EST Hospital Encounter Hematology [place] [address] Chronic idiopathic neutropenia Discharge Disposition: Home Social [...] PM EST Hospital Encounter [place] [address] Markel Borjas MD [facility] [address] [place] [address] 06/05/2024 2:00 PM EST - 06/05/2024 3:00 PM EST Surgery [place] [address] Markel Borjas MD [facility] [address] [place] [address] (OSC MSURG) BONE MARROW BIOPSY AND ASPIRATION; DIAGNOSTIC (WRVU 1.44) 06/23/2024 2:00 PM EST Office Visit Hematology [place] [address] Markel Borjas MD [facility] [place] [address] 03/01/2025 4:15 PM EDT Office Visit Dermatology at [place] [address] [place] [phone] Marek Bonilla MD [address], [place] [address] Scheduled Procedures Name Priority Associated Diagnoses Date/Ti [...] 12:40 PM EST) Neutrophil % 72.9 % [facility] Neutrophil Absolute 2.61 1.70 - 6.10 x10(3)/mc L [facility] Lymph % 18.4 % [facility] Lymphocytes Abs 0.7(L) 0.9 - 3.2 x10(3)/mc L [facility] Monocyte % 8.4 % [facility] Monocyte Abs 0.3 0.3 - 0.9 x10(3)/mc L [facility] Eos % 0.0 % [facility] Eosinophils Abs 0.0 0.0 - 0.4 x10(3)/mc L [facility] Basophil % 0.3 % [facility] Baso Absolute 0.0 0.0 - 0.1 x10(3)/[facility] Immature Gran % 0.00 % [facility] Comment: Immature granulocytes(IG's)percentage and absolute count will include metamyelocytes, myelocytes, and promyelocytes. Blood smears from CBCs yielding IG's will be scanned manually for concordance. If this scan disagrees with the automated IG or if promyelocytes are noted, a manual differential will be performed. Immature Gran Absolute 0.00 0.00 - 0.04 x10(3)/[facility] Blood 07/03/2022 12:4 0 PM EST 07/03/2022 1:03 PM EST Narrative Resulting Agency Comment Spec In Lab Markel Borjas MD HEMATOLOGY ORDERAB LES Performing Organization Address City/State/[facility] Co de Phone Number [facility] [place] [address] * (ABNORMAL) Hemogram (07/03/2022 12:40 PM EST) White Blood Cell 3.6(L) 4.0 - 9.5 x10(3)/[facility] Red Blood Cell 3.61(L) 4.00 - 5.21 x10(6)/[facility] Hemoglobin 11.7 11.7 - 15.5 g/dL [facility] Hematocrit 34.5(L) 35.7 - 45.8 % [facility] Mean Cell Volume 95.6(H) 82.6 - 94.4 fL [facility] Mean Cell Hemoglobin 32.4(H) 27.1 - 32.0 pg [facility] Mean Cell Hemoglobin Concentration 33.9 31.7 - 35.0 g/dL [facility] Platelet 171 145 - 357 x10(3)/[facility] RDW Standard Deviation 40.5 37.0 - 46.0 fL [facility] RDW coefficient of variation 11.5 11.5 - 14.1 % [facility] Mean Platelet Volume 9.2 7.6 - 12.9 fL [facility] NRBC% auto 0.0 % [facility] NRBC Absolute 0.000 0.000 - 0.000 x10(3)/mc L [facility] Blood 07/03/2022 12:4 0 PM EST 07/03/2022 1:03 PM EST Narrative Resulting Agency Comment Spec In Lab Markel Borjas MD HEMATOLOGY ORDERAB LES [facility] [place] [address] * (ABNORMAL) Comprehensive metabolic panel (non-fasting) (07/03/2022 12:40 PM EST) Glucose 92 65 - 199 mg/dL [facility] Comment:Diabetes: >=200 mg/d L plus symptoms Blood Urea Nitrogen 22(H) 8 - 18 mg/dL [facility] Creatinine 0.80 0.70 - 1.20 mg/dL [facility] Sodium 139 135 - 145 mmol/L [facility] Potassium 4.2 3.5 - 5.0 mmol/L [facility] Comment: Please note: ??Patients with WBC >100,000 may have falsely elevated Potassium levels. ??For accurate Potassium quantification in these patients send serum separator tube (gold top) for subsequent determinations. ??Contact the Clinical Chemistry Laboratory if there are any questions. Chloride 105 98 - 107 mmol/L [facility] Carbon Dioxide 23 22 - 31 mmol/L [facility] Anion Gap 11 5 - 15 mmol/L [facility] Calcium 10.1 8.5 - 10.5 mg/dL [facility] Protein, Total 7.6 6.1 - 8.0 g/dL [facility] Albumin 4.1 3.2 - 5.2 g/dL [facility] Aspartate Aminotransferase 25 0 - 30 unit/L [facility] Alanine Aminotransferase 14 0 - 30 unit/L [facility] Alkaline Phosphatase 80 35 - 105 unit/L [facility] Bilirubin, Total 0.3 0.2 - 1.3 mg/dL [facility] Est Glomerular Filtration Rate 81 >=60 mL/min/1. 73 m?? [facility] Comment: This patient's estimated GFR [...] Lab Markel Borjas MD CHEMISTRY ORDERABL ES [facility] [place] [address] documented in this encounter Visit Diagnoses Diagnosis Chronic idiopathic neutropenia Other neutropenia documented in this encounter Care Teams Lay Brother Relationship Specialty Start Date End Date Deborah Quiroga APRN PCP - General Family Medicine 03/24/16 02/04/23 documented as of this encounter
--- OUTSIDE RECORDS SUMMARY | 2024-05-23 14:08 | XMS_ITS | Encounter Summary ---
Author Organization [place] [address] Care Team Providers Care Metalsmith Name Role Phone Deborah Quiroga APRN Primary Care Provider [phone] Reason for Referral * Consultation (Routine) - Closed Specialty Diagnoses / Procedures Referred By Crispin maxwell Referred To Contact Neurology Diagnoses Polyneuropathy Deborah Quiroga APRN [address] [place] [address] [facility] [address] [place] [phone] Referral ID Status Reason Start Date Expiration Date V isits Requested Visits Authorized [id number] Closed Consult, Test & Treat 10/29/2022 10/29/2023 1 1 Encounter Details Date Type Department Care Team (Latest Contact Info) Description 10/29/2022 Transcribe Orders eDH Incoming Referrals [phone] Deborah Quiroga APRN [address] [place] [address] Polyneuropathy (Primary Dx) Social History [...] PM EST Hospital Encounter Outpatient [place] [address] Markel Borjas MD [facility] [address] HEMATOLOGY [place] [address] 06/05/2024 2:00 PM EST - 06/05/2024 3:00 PM EST Surgery Outpatient [place] [phone] Markel Borjas MD [facility] [address] HEMATOLOGY [place] [address] (OSC MSURG) BONE MARROW BIOPSY AND ASPIRATION; DIAGNOSTIC (WRVU 1.44) 06/23/2024 2:00 PM EST Office Visit Hematology [place] [phone] Markel Borjas MD [facility] [address] HEMATOLOGY [place] [address] 03/01/2025 4:15 PM EDT Office Visit Dermatology at [place] [address] [place] [phone] Marek Bonilla MD [address] [place] [address] Scheduled Procedures Name Priority Associated Diagnoses Date/Ti [...] neuropathy documented in this encounter Care Teams Metalsmith Relationship Specialty Start Date End Date Deborah Quiroga, EGG PACKER PCP - General Family Medicine 03/24/16 02/04/23 documented as of this encounter
--- OUTSIDE RECORDS SUMMARY | 2024-05-23 14:08 | XMS_ITS | Encounter Summary ---
[place] [address] Care Team Providers Care Events Associate Name Role Phone Magdalena Acosta MD Primary Care Provider [phone] Encounter Details Date Type Department Care Team (Latest Contact Info) Description 03/18/2023 2:30 PM EDT Laboratory Appointment Lab [address] [place] [address] Positive FRANCISCO (antinuclear antibody) Social [...] PM EST Hospital Encounter [place] [phone] Markel Borjas MD [facility] [address] HEMATOLOGY [place] [address] 06/05/2024 2:00 PM EST - 06/05/2024 3:00 PM EST Surgery [place] [phone] Markel Borjas MD [facility] [address] HEMATOLOGY [place] [address] (OSC MSURG) BONE MARROW BIOPSY AND ASPIRATION; DIAGNOSTIC (WRVU 1.44) 06/23/2024 2:00 PM EST Office Visit Hematology [place] [address] Markel Borjas MD [facility] HEMATOLOGY [place] [address] 03/01/2025 4:15 PM EDT Office Visit Dermatology at [place] [address] [place] [phone] Marek Bonilla MD [address] [place] [address] Scheduled Procedures Name Priority Associated Diagnoses Date/Ti [...] 2:14 PM EDT) Neutrophil % 71.2 % [facility] Neutrophil Absolute 2.26 1.70 - 6.10 x10(3)/mc L [facility] Lymph % 18.2 % [facility] Lymphocytes Abs 0.6(L) 0.9 - 3.2 x10(3)/mc L [facility] Monocyte % 9.7 % [facility] Monocyte Abs 0.3 0.3 - 0.9 x10(3)/mc L [facility] Eos % 0.3 % [facility] Eosinophils Abs 0.0 0.0 - 0.4 x10(3)/mc L [facility] Basophil % 0.6 % [facility] Baso Absolute 0.0 0.0 - 0.1 x10(3)/mc L [facility] Immature Gran % 0.00 % [facility] Comment: Immature granulocytes(IG's)percentage and absolute count will include metamyelocytes, myelocytes, and promyelocytes. Blood smears from CBCs yielding IG's will be scanned manually for concordance. If this scan disagrees with the automated IG or if promyelocytes are noted, a manual differential will be performed. Immature Gran Absolute 0.00 0.00 - 0.04 x10(3)/mc L [facility] Blood 03/18/2023 2:14 PM EDT 03/18/2023 2:24 PM EDT Narrative Resulting Agency Comment Spec In Lab Magdalena Peralta MD HEMATOLOGY ORDERABLE S [facility] [place] [address] * (ABNORMAL) Hemogram (03/18/2023 2:14 PM EDT) White Blood Cell 3.2(L) 4.0 - 9.5 x10(3)/mc L [facility] Red Blood Cell 3.44(L) 4.00 - 5.21 x10(6)/mc L [facility] Hemoglobin 11.1(L) 11.7 - 15.5 g/dL [facility] Hematocrit 32.9(L) 35.7 - 45.8 % [facility] Mean Cell Volume 95.6(H) 82.6 - 94.4 fL [facility] Mean Cell Hemoglobin 32.3(H) 27.1 - 32.0 pg [facility] Mean Cell Hemoglobin Concentration 33.7 31.7 - 35.0 g/dL [facility] Platelet 144(L) 145 - 357 x10(3)/mc L [facility] RDW Standard Deviation 42.6 37.0 - 46.0 fL [facility] RDW coefficient of variation 12.3 11.5 - 14.1 % [facility] Mean Platelet Volume 9.4 7.6 - 12.9 fL [facility] NRBC% auto 0.0 % [facility] NRBC Absolute 0.000 0.000 - 0.000 x10(3)/ L [facility] Blood 03/18/2023 2:14 PM EDT 03/18/2023 2:24 PM EDT Narrative Resulting Agency Comment Spec In Lab Magdalena Peralta MD HEMATOLOGY ORDERABLE S Performing Organization Address City/[facility]/ZIP Co de Phone Number [facility] [place] [address] * (ABNORMAL) Sedimentation rate (03/18/2023 2:14 PM EDT) Sedimentation Rate Automated 68(H) 2 - 39 mm/hr [facility] Comment: Effective July 12, 2019 new capillary photometric technology has resulted in a change in reference ranges. It is recommended that each ESR result be reviewed with its own age appropriate reference range. Blood 03/18/2023 2:14 PM EDT 03/18/2023 2:24 PM EDT Narrative Resulting Agency Comment Spec In Lab Kiagiacomo Viramontes DO HEMATOLOGY ORDERAB LES Performing Organization Address City/[facility] Co de Phone Number [facility] [place] [address] * CRP, acute inflammation (03/18/2023 2:14 PM EDT) C-Reactive Protein 3.0 <=4.9 mg/L [facility] Blood 03/18/2023 2:14 PM EDT 03/18/2023 2:24 PM EDT Narrative Resulting Agency Comment Spec In Lab Kiasanta Viramontes DO CHEMISTRY ORDERABL ES Performing Organization Address [facility] Co de Phone Number [facility] [place] [address] * C3 Complement (03/18/2023 2:14 PM EDT) Complement C3 142 90 - 180 mg/dL [facility] Blood 03/18/2023 2:14 PM EDT 03/18/2023 2:24 PM EDT Narrative Resulting Agency Comment Spec In Lab Kia D Wander DO CHEMISTRY ORDERABL ES Performing Organization Address [facility] Co de Phone Number [facility] [place] [address] * C4 Complement (03/18/2023 2:14 PM EDT) Complement C4 30 10 - 40 mg/dL [facility] Blood 03/18/2023 2:14 PM EDT 03/18/2023 2:24 PM EDT Narrative Resulting Agency Comment Spec In Lab Kia Viramontes DO CHEMISTRY ORDERABL ES Performing Organization Address City/[facility]/ZIP Co de Phone Number [facility] [place] [address] * CK (03/18/2023 2:14 PM EDT) Pathologist [facility] Creatine Kinase 38 0 - 160 unit/L [facility] Blood 03/18/2023 2:14 PM EDT 03/18/2023 2:24 PM EDT Narrative Resulting Agency Comment Spec In Lab Kia Viramontes DO CHEMISTRY ORDERABL ES Performing Organization Address [facility] Co de Phone Number [facility] [place] [address] * DNA Antibody (Double-Stranded) (03/18/2023 2:14 PM EDT) Pathologist [facility] dsDNA Ab <0.6 <=15.0 IU/mL [facility] Comment: <10 negative 10-15 equivocal >15 positive This dsDNA antibody result was generated using a fluoroenzyme immunoassay on the [employer] Safety 250 analyzer. This quantitative test is designed to detect IgG antibodies directed against double stranded DNA in human serum. The presence of antibodies that recognize dsDNA is a highly specific marker for systemic lupus erythematosus. Please note that as of 05/26/2022 that this testing is performed by the [facility] at [facility]. This change in testing location is associated with a change is testing method and reference intervals. Please review the results of this test in association with the posted reference intervals. Blood 03/18/2023 2:14 PM EDT 03/19/2023 7:19 AM EDT Narrative Resulting Agency Comment Spec In Lab Kia James Wander DO LAB SEND OUT ORDER JODIE Performing Organization Address [facility] Co de Phone Number [facility] [place] [address] * (ABNORMAL) FRANCISCO Ab by IFA (03/18/2023 2:14 PM EDT) Pathologist [facility] FRANCISCO Ab Screen Test ? Result ?Flag ??Unit ??RefValue Antinuclear Ab, HEp-2 ?Positive 1:2560 ??@ ?<1:80 (Negative) ??Substrate, S ? ADDITIONAL INFORMATION --------- ?Method: Immunofluorescence using HEp-2 cellular substrate. ??FRANCISCO Titer: ? 1:2560 ??FRANCISCO Pattern: ? Speckled ?Test Performed by: ?[facility] ?[address] [id number] ?Trial Lawyer: Raymond Chaudhry M.D. Ph.D.; CLIA# [id number] ([id number]) [facility] Blood 03/18/2023 2:14 PM EDT 03/18/2023 3:02 PM EDT Narrative Resulting Agency Comment Spec In Lab Kia Viramontes DO CHEMISTRY ORDERABL ES [facility] [place] [address] * Comprehensive metabolic panel (non-fasting) (03/18/2023 2:14 PM EDT) Glucose 93 65 - 199 mg/dL [facility] Comment:Diabetes: >=200 mg/d L plus symptoms Blood Urea Nitrogen 18 8 - 18 mg/dL [facility] Creatinine 0.99 0.70 - 1.20 mg/dL [facility] Sodium 141 135 - 145 mmol/L [facility] Potassium 4.5 3.5 - 5.0 mmol/L [...] [facility] Carbon Dioxide 24 22 - 31 mmol/L [facility] Anion Gap 11 5 - 15 mmol/L [facility] Calcium 10.0 8.5 - 10.5 mg/dL [facility] Protein, Total 7.3 6.1 - 8.0 g/dL [facility] Albumin 4.3 3.2 - 5.2 g/dL [facility] Aspartate Aminotransferase 26 0 - 30 unit/L [facility] Alanine Aminotransferase 11 0 - 30 unit/L [facility] Alkaline Phosphatase 91 35 - 105 unit/L [facility] Bilirubin, Total 0.4 0.2 - 1.3 mg/dL [facility] Est Glomerular Filtration Rate 62 >=60 [...] CHEMISTRY ORDERABL ES [facility] [place] [address] documented in this encounter Visit Diagnoses Diagnosis Positive FRANCISCO (antinuclear antibody) Other and unspecified nonspecific immunological findings documented in this encounter Care Teams Events Associate Relationship Specialty Start Date End Date Magdalena Acosta MD [address] [place] [address] PCP - General Family Medicine 02/05/23 documented as of this encounter
--- OUTSIDE RECORDS SUMMARY | 2024-05-23 14:08 | XMS_ITS | Encounter Summary ---
[place] [address] Care Team Providers Care Business Operations Analyst Name Role Phone Magdalena Acosta MD Primary Care Provider [phone] Encounter Details Date Type Department Care Team [...] PM EST Hospital Encounter [place] [phone] Markel Borjas MD [facility] [address] HEMATOLOGY [place] [address] 06/05/2024 2:00 PM EST - 06/05/2024 3:00 PM EST Surgery [place] [phone] Markel Borjas MD [facility] [address] HEMATOLOGY [place] [address] (OSC MSURG) BONE MARROW BIOPSY AND ASPIRATION; DIAGNOSTIC (WRVU 1.44) 06/23/2024 2:00 PM EST Office Visit Hematology [place] [address] Markel Borjas MD [facility] [address] HEMATOLOGY [place] [address] 03/01/2025 4:15 PM EDT Office Visit Dermatology at [place] [address] [place] [phone] Marek Bonilla MD [address] [place] [address] Scheduled Procedures Name Priority Associated Diagnoses Date/Ti me (OSC MSURG) BONE MARROW BIOPSY AND ASPIRATION; DIAGNOSTIC (WRVU 1.44) Anemia, in pt with longstanding neutropenia 06/05/2024 2:00 PM EST documented as of this encounter Visit Diagnoses Not on filedocumented in this encounter Care Teams Business Operations Analyst Relationship Specialty Start Date End Date Magdalena Acosta MD [address] [place] [address] PCP - General Family Medicine 02/05/23 documented as of this encounter
--- OUTSIDE RECORDS SUMMARY | 2024-05-23 14:08 | XMS_ITS | Encounter Summary ---
[place] [address] Care Team Providers Care Window Shade Installer Name Role Phone Magdalena Acosta MD Primary Care Provider [phone] Reason for Visit * Reason Comments Annual Exam Encounter Details Date Type Department Care Team (Late st Contact Info) Description 02/05/2023 2:30 PM EDT Office Visit Dermatology at [address] [address] Maerk Bonilla MD [address] [place] [address] Rosacea; Ocular rosacea; Nevus Social History Tobacco [...] cutaneous and ocular 2. Previously told by stiff neck loader that she had corneal tears from her [...] PM EST Hospital Encounter [place]patient [place] [phone] Markel Borjas MD [facility] DR HEMATOLOGY [place] [address] 06/05/2024 2:00 PM EST - 06/05/2024 3:00 PM EST Surgery [place] [phone] Markel Borjas MD [facility] DR HEMATOLOGY [place] [address] (OSC MSURG) BONE MARROW BIOPSY AND ASPIRATION; DIAGNOSTIC (WRVU 1.44) 06/23/2024 2:00 PM EST Office Visit [place]ology [place] [address] Markel Borjas MD [facility] DR HEMATOLOGY [place] [address] 03/01/2025 4:15 PM EDT Office Visit Dermatology at [place] [address] [place] [phone] Marek Bonilla MD [address] [place] [address] Scheduled Procedures Name Priority Associated Diagnoses Date/Ti me (OSC MSURG) BONE MARROW BIOPSY AND ASPIRATION; DIAGNOSTIC (WRVU 1.44) Anemia, in pt with longstanding neutropenia 06/05/2024 2:00 PM EST documented as of this encounter Visit Diagnoses Diagnosis Rosacea Ocular rosacea Rosacea Nevus Benign neoplasm of skin, site unspecified documented in this encounter Care Teams Window Shade Installer Relationship Specialty Start Date End Date Magdalena Acosta MD [address] [place] [address] PCP - General Family Medicine 02/05/23 documented as of this encounter
--- OUTSIDE RECORDS SUMMARY | 2024-05-23 14:08 | XMS_ITS | Encounter Summary ---
Author Organization [facility] Address [facility] [place] [address] Care Team Providers Care Grocery Team Member Name Role Phone Junaid Deborah Shields APRN Primary Care Provider [phone] Encounter Details Date Type Department Care Team (Latest Contact Info) Description 06/22/2022 10:00 AM EST Office [place] [phone] Raymond Loredo MD [facility] [place] [address] Raynaud's phenomenon without gangrene; Positive FRANCISCO (antinuclear [...] can be done locally or here at [facility] that the current time is not particularly [...] for surgery by Dr. Rogers here at [facility]. In addition to painful dysesthesias in her [...] over radiocarpal or ulnocarpal joints. Hands: Normal furniture maker and claw. SJC/TJC 0/0. Knees: Decreased [...] PM EST Hospital Encounter [place] [address] Markel Borjas MD [facility] DR HEMATOLOGY [place] [address] 06/05/2024 2:00 PM EST - 06/05/2024 3:00 PM EST Surgery [place] [address] Markel Borjas MD [facility] DR HEMATOLOGY [place] [address] (OSC MSURG) BONE MARROW BIOPSY AND ASPIRATION; DIAGNOSTIC (WRVU 1.44) 06/23/2024 2:00 PM EST Office Visit Hematology [place] [address] Markel Borjas MD [facility] [address] HEMATOLOGY [place] [address] 03/01/2025 4:15 PM EDT Office Visit Dermatology at [place] [address] [place] [address] Marek Bonilla MD [address] DERMATOLOGY [place], [place] [address] Scheduled Procedures Name Priority Associated Diagnoses Date/Ti [...] radiculopathy documented in this encounter Care Teams Grocery Team Member Relationship Specialty Start Date End Date Deborah Quiroga APRN PCP - General Family Medicine 03/24/16 02/04/23 documented as of this encounter
--- OUTSIDE RECORDS SUMMARY | 2024-05-23 14:08 | XMS_ITS | Encounter Summary ---
Author Organization [facility] [place] [address] Care Team Providers Care County Home Demonstration Agent Name Role Phone Junaid, Deborah Shields APRN Primary Care Provider [phone] Encounter Details Date Type Department Care Team [...] EST Hospital Encounter Outpatient [place] [phone] Markel Borjas MD [facility] DR HEMATOLOGY [place] [address] 06/05/2024 2:00 PM EST - 06/05/2024 3:00 PM EST Surgery Outpatient [place] [phone] Markel Borjas MD [facility] DR HEMATOLOGY [place] [address] (OSC MSURG) BONE MARROW BIOPSY AND ASPIRATION; DIAGNOSTIC (WRVU 1.44) 06/23/2024 2:00 PM EST Office Visit Hematology [place] [address] Markel Borjas MD [facility] DR HEMATOLOG[place] [address] 03/01/2025 4:15 PM EDT Office Visit Dermatology at [place] [address] [place] [phone] Marek Bonilla MD [address] [place] [address] Scheduled Procedures Name Priority Associated Diagnoses Date/Ti me (OSC MSURG) BONE MARROW BIOPSY AND ASPIRATION; DIAGNOSTIC (WRVU 1.44) Anemia, in pt with longstanding neutropenia 06/05/2024 2:00 PM EST documented as of this encounter Visit Diagnoses Not on filedocumented in this encounter Care Teams County Home Demonstration Agent Relationship Specialty Start Date End Date Deborah Quiroga APRN PCP - General Family Medicine 03/24/16 02/04/23 documented as of this encounter
--- OUTSIDE RECORDS SUMMARY | 2024-05-23 14:08 | XMS_ITS | Encounter Summary ---
Author Organization [facility]ly [facility] Address [facility] [place] [address] Care Team Providers Care Prn Physical Therapist Name Role Phone Deborah Quiroga APRN Primary Care Provider [phone] Reason for Visit * Reason Comments Follow-up Encounter Details Date Type Department Care Team (Late st Contact Info) Description 07/03/2022 1:30 PM EST Office Visit [place] [address] Markel Borjas MD [facility] DR HEMAT[place] [address] Consuelo Sommer APRN [facility] [address] HEMAT[place] [address] Chronic idiopathic neutropenia; Dysuria Social History Tobacco [...] 07/03/2022 1:30 PM EST Hematology Outpatient Clinic [facility] Hematology Outpatient [...] TOUCH PREP, CLOT SECTION, CORE ??BIOPSY); [OSR# [id number], COLLECTED 06/23/2016, 19 SLIDES]: ?1. 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 Extremities: No edema. Labs: Hgb= 11.7 Htqq=048 ANC= 2.5 Imaging As above - reviewed [...] PM EST Hospital Encounter Outpatient [place] [address] Markel Borjas MD [facility] DR HEMAT[place] [address] 06/05/2024 2:00 PM EST - 06/05/2024 3:00 PM EST Surgery Outpatient [place] [address] Markel Borjas MD [facility] DR HEMATOLOG[place] [address] (OSC MSURG) BONE MARROW BIOPSY AND ASPIRATION; DIAGNOSTIC (WRVU 1.44) 06/23/2024 2:00 PM EST Office Visit [place] [address] Markel Borjas MD [facility] DR HEMATOLOG[place] [address] 03/01/2025 4:15 PM EDT Office Visit Dermatology at [place] [address] [place] [address] Marek Bonilla MD [address] [place] [address] Scheduled Procedures Name Priority Associated Diagnoses Date/Ti [...] tract infection, submit a new specimen. (A) [facility] Clean Catch Urine 07/03/2022 2:00 PM EST 07/03/2022 5:55 PM EST Narrative Resulting Agency Comment Spec In Lab Markel Borjas MD MICROBIOLOGY - GEN ERAL ORDERABLES [facility] [place] [address] * (ABNORMAL) Urinalysis Microscopic Exam (07/03/2022 2:00 PM EST) RBC, Urine 2 0 - 4 /HPF [facility] WBC, Urine 14(H) 0 - 5 /HPF [facility] Bacteria, Urine Occasional (A) None /HPF [facility] Squamous Epithelial Cells Raw Data, Urine 12(H) <=4 /HPF [facility] Hyaline Casts, Urine 2 0 - 2 /LPF [facility] Clean Catch Urine 07/03/2022 2:00 PM EST 07/03/2022 2:29 PM EST Narrative Resulting Agency Comment Spec In Lab Markel Borjas MD URINE ORDERABLES [facility] [place] [address] * (ABNORMAL) Urinalysis with reflex Culture (07/03/2022 2:00 PM EST) Glucose, Urine Dipstick Negative Negative mg/dL [facility] Protein, Urine Dipstick 30(A) Negative mg/dL [facility] Bilirubin, Urine Dipstick Negative Negative mg/dL [facility] Comment: Clinical correlation required for positive Urine Bilirubin results as false positive may occur with some drugs and drug related products. If a false positive is suspected a serum total bilirubin should be considered if clinically indicated. Urobilinogen, Urine Dipstick Normal Normal mg/dL [facility] pH, Urn (dipstick) 5.5 5.0 - 8.0 [facility] Blood, Urine Dipstick Negative Negative mg/dL [facility] Ketone, Urine Dipstick Trace(A) Negative mg/dL [facility] Nitrite, Urine Dipstick Negative Negative [facility] Leukocytes, Urine Dipstick Small(A) Negative [facility] Appearance, Urine Dipstick Clear Clear [facility] Specific [place] Urine Automated 1.022 1.005 - 1.030 [facility] Color, Urine Dipstick Yellow Yellow [facility] Reflex to Culture Yes [facility] Clean Catch Urine 07/03/2022 2:00 PM EST 07/03/2022 2:29 PM EST Narrative Resulting Agency Comment Spec In Lab Markel Borjas MD URINE ORDERABLES [facility] [place] [address] * (ABNORMAL) Comprehensive metabolic panel (non-fasting) (07/03/2022 12:40 PM EST) Glucose 92 65 - 199 mg/dL [facility] Comment:Diabetes: >=200 mg/d L plus symptoms Blood Urea Nitrogen 22(H) 8 - 18 mg/dL [facility] Creatinine 0.80 0.70 - 1.20 mg/dL [facility] [...] mmol/L [facility] Carbon Dioxide 23 22 - 31 mmol/L [facility] Anion Gap 11 5 - 15 mmol/L [facility] Calcium 10.1 8.5 - 10.5 mg/dL [facility] Protein, Total 7.6 6.1 - 8.0 g/dL [facility] Albumin 4.1 3.2 - 5.2 g/dL [facility] Aspartate Aminotransferase 25 0 - 30 unit/L [facility] Alanine Aminotransferase 14 0 - 30 unit/L [facility] Alkaline Phosphatase 80 35 - 105 unit/L [facility] Bilirubin, Total 0.3 0.2 - 1.3 mg/dL [facility] Est Glomerular Filtration Rate 81 >=60 mL/min/1. 73 m?? [facility] [...] MD CHEMISTRY ORDERABL ES Performing Organization Address City/State/[facility] Co de Phone Number [facility] [place] [address] documented in this encounter Visit Diagnoses Diagnosis Chronic idiopathic neutropenia Other neutropenia Dysuria documented in this encounter Care Teams Prn Physical Therapist Relationship Specialty Start Date End Date Deborah Quiroga APRN PCP - General Family Medicine 03/24/16 02/04/23 documented as of this encounter
--- OUTSIDE RECORDS SUMMARY | 2024-05-23 14:08 | XMS_ITS | Encounter Summary ---
Author Organization [facility] [place] [address] Care Team Providers Care Director Digital Advertising Name Role Phone Junaid Deborah Shields APRN Primary Care Provider [phone] Encounter Details Date Type Department Care Team [...] PM EST Hospital Encounter [place] [address] Markel Borjas MD [facility] DR H[place]ATOLOGY [place] [address] 06/05/2024 2:00 PM EST - 06/05/2024 3:00 PM EST Surgery [place] [address] Markel Borjas MD [facility] DR HEMATOLOGY [place] [address] (OSC MSURG) BONE MARROW BIOPSY AND ASPIRATION; DIAGNOSTIC (WRVU 1.44) 06/23/2024 2:00 PM EST Office Visit [place]ology [place] [address] Markel Borjas MD [facility] DR [place] [address] 03/01/2025 4:15 PM EDT Office Visit Dermatology at [place] [address] [place] [phone] Marek Bonilla MD [address] [place] [address] Scheduled Procedures Name Priority Associated Diagnoses Date/Ti me (OSC MSURG) BONE MARROW BIOPSY AND ASPIRATION; DIAGNOSTIC (WRVU 1.44) Anemia, in pt with longstanding neutropenia 06/05/2024 2:00 PM EST documented as of this encounter Visit Diagnoses Not on filedocumented in this encounter Care Teams Director Digital Advertising Relationship Specialty Start Date End Date Deborah Quiroga APRN PCP - General Family Medicine 03/24/16 02/04/23 documented as of this encounter
--- OUTSIDE RECORDS SUMMARY | 2024-05-23 14:08 | XMS_ITS | Encounter Summary ---
Author Organization [facility] Address [facility] [place] [address] Care Team Providers Care Bulk Station Operator Name Role Phone Magdalena Acosta MD Primary Care Provider [phone] Reason for Visit * Consultation (Routine) - Closed Specialty Diagnoses / Procedures Referred By Contac t Referred To Contact Rheumatology Diagnoses Weakness Kyra Haas MD [facility] [address] [place] [address] [facility] Rheumatology [address] [place] [phone] Referral ID Status Reason Start Date Expiration Date V isits Requested Visits Authorized [id number] Closed Consult, Test & Treat PCP Updated and/or Approved 02/25/2023 02/25/2024 6 6 Encounter Details Date Type Department Care Team (Late st Contact Info) Description 03/18/2023 1:00 PM EDT Office [place] [address] Kia Viramontes DO [facility] [place] [address] Magdalena Peralta MD [facility] [place] [address] Positive FRANCISCO (antinuclear antibody) Social [...] 1:5120 speckled VIC negative Myositis panel with CORPORATE DIRECTOR ab 149.1 (positive) Anti U1RNP IgG 119 [...] a chair without assistance of upper extremities. Animal Pathology Teacher strength 3+/5 bilaterally; otherwise large muscle [...] Dr. Wander Peralta MD Rheumatology Fellow Pager: [phone] CC: Kyra Haas * Kia Viramontes DO [...] PM EST Hospital Encounter Outpatient [place] [phone] Markel Borjas MD [facility] DR HEMATOLOGY [place] [address] 06/05/2024 2:00 PM EST - 06/05/2024 3:00 PM EST Surgery Outpatient [place] [phone] Markel Borjas MD [facility] DR HEMATOLOGY [place] [address] (OSC MSURG) BONE MARROW BIOPSY AND ASPIRATION; DIAGNOSTIC (WRVU 1.44) 06/23/2024 2:00 PM EST Office Visit [place] [address] Markel Borjas MD [facility] DR HEMATOLOGY [place] [address] 03/01/2025 4:15 PM EDT Office Visit Dermatology at [place] [address] [place] [address] Marek Bonilla MD [address] [place] [address] Scheduled Procedures Name Priority Associated Diagnoses Date/Ti me (OSC MSURG) BONE MARROW BIOPSY AND ASPIRATION; DIAGNOSTIC (WRVU 1.44) Anemia, in pt with longstanding neutropenia 06/05/2024 2:00 PM EST documented as of this encounter Results * Comprehensive metabolic panel (non-fasting) (03/18/2023 2:14 PM EDT) Glucose 93 65 - 199 mg/dL [facility] Comment:Diabetes: >=200 mg/d L plus symptoms Blood Urea Nitrogen 18 8 - 18 mg/dL [facility] Creatinine 0.99 0.70 - 1.20 mg/dL [facility] Sodium 141 135 - 145 mmol/L [facility] Potassium 4.5 3.5 - 5.0 mmol/L [facility] Comment: Please note: ??Patients with WBC >100,000 may have falsely elevated Potassium levels. ??For accurate Potassium quantification in these patients send serum separator tube (gold top) for subsequent determinations. ??Contact the Clinical Chemistry Laboratory if there are any questions. Chloride 106 98 - 107 mmol/L [facility] Carbon Dioxide 24 22 - 31 mmol/L [facility] Anion Gap 11 5 - 15 mmol/L [facility] Calcium 10.0 8.5 - 10.5 mg/dL [facility] Protein, Total 7.3 6.1 - 8.0 g/dL [facility] Albumin 4.3 3.2 - 5.2 g/dL [facility] Aspartate Aminotransferase 26 0 - 30 unit/L [facility] Alanine Aminotransferase 11 0 - 30 unit/L [facility] Alkaline Phosphatase 91 35 - 105 unit/L [facility] Bilirubin, Total 0.4 0.2 - 1.3 mg/dL [facility] Est Glomerular Filtration Rate 62 >=60 mL/min/1. 73 m?? [facility] Comment: This patient's estimated GFR [...] Agency Comment Spec In Lab Kia Erika Viramontes DO CHEMISTRY ORDERABL ES [facility] [place] [address] * (ABNORMAL) FRANCISCO Ab by IFA (03/18/2023 2:14 PM EDT) FRANCISCO Ab Screen Test ? Result ?Flag ??Unit ??RefValue Antinuclear Ab, HEp-2 ?Positive 1:2560 ??@ ?<1:80 (Negative) ??Substrate, S ? ADDITIONAL INFORMATION --------- ?Method: Immunofluorescence using HEp-2 cellular substrate. ??FRANCISCO Titer: ? 1:2560 ??FRANCISCO Pattern: ? Speckled ?Test Performed by: ?[employer] [facility] ?[address] [place] [address] ?Reservoir Caretaker: Raymond Chaudhry M.D. Ph.D.; CLIA# [id number] ([id number]) [facility] Blood 03/18/2023 2:14 PM EDT 03/18/2023 3:02 PM EDT Narrative Resulting Agency Comment Spec In Lab Kia Viramontes DO CHEMISTRY ORDERABL ES Performing Organization Address [facility]/ZIP Co de Phone Number [facility] [place] [address] * DNA Antibody (Double-Stranded) (03/18/2023 2:14 PM EDT) dsDNA Ab <0.6 <=15.0 IU/mL [facility] Comment: <10 negative 10-15 equivocal >15 positive This dsDNA antibody result was generated using a fluoroenzyme immunoassay on the [employer] 250 analyzer. This quantitative test is designed to detect IgG antibodies directed against double stranded DNA in human serum. The presence of antibodies that recognize dsDNA is a highly specific marker for systemic lupus erythematosus. Please note that as of 05/26/2022 that this testing is performed by the Special [facility] Laboratory at [facility]. This change in testing location is associated with a change is testing method and reference intervals. Please review the results of this test in association with the posted reference intervals. Blood 03/18/2023 2:14 PM EDT 03/19/2023 7:19 AM EDT Narrative Resulting Agency Comment Spec In Lab Kia Viramontes DO LAB SEND OUT ORDER JODIE Performing Organization Address [facility] Co de Phone Number [facility] [place] [address] * CK (03/18/2023 2:14 PM EDT) Creatine Kinase 38 0 - 160 unit/L [facility] Blood 03/18/2023 2:14 PM EDT 03/18/2023 2:24 PM EDT Narrative Resulting Agency Comment Spec In Lab Kia Viramontes DO CHEMISTRY ORDERABL ES Performing Organization Address City/[facility]/ZIP Co de Phone Number [facility] [place] [address] * C4 Complement (03/18/2023 2:14 PM EDT) Complement C4 30 10 - 40 mg/dL [facility] Blood 03/18/2023 2:14 PM EDT 03/18/2023 2:24 PM EDT Narrative Resulting Agency Comment Spec In Lab Kia D Wander DO CHEMISTRY ORDERABL ES Performing Organization Address [facility] Co de Phone Number [facility] [place] [address] * C3 Complement (03/18/2023 2:14 PM EDT) Complement C3 142 90 - 180 mg/dL [facility] Blood 03/18/2023 2:14 PM EDT 03/18/2023 2:24 PM EDT Narrative Resulting Agency Comment Spec In Lab Kia D Wander DO CHEMISTRY ORDERABL ES Performing Organization Address [facility] Co de Phone Number [facility] [place] [address] * CRP, acute inflammation (03/18/2023 2:14 PM EDT) C-Reactive Protein 3.0 <=4.9 mg/L [facility] Blood 03/18/2023 2:14 PM EDT 03/18/2023 2:24 PM EDT Narrative Resulting Agency Comment Spec In Lab Kia D Wander DO CHEMISTRY ORDERABL ES Performing Organization Address [facility] de Phone Number [facility] [place] [address] * (ABNORMAL) Sedimentation rate (03/18/2023 2:14 PM EDT) Sedimentation Rate Automated 68(H) 2 - 39 mm/hr [facility] Comment: Effective July 12, 2019 new capillary photometric technology has resulted in a change in reference ranges. It is recommended that each ESR result be reviewed with its own age appropriate reference range. Blood 03/18/2023 2:14 PM EDT 03/18/2023 2:24 PM EDT Narrative Resulting Agency Comment Spec In Lab Kia Viramontes DO HEMATOLOGY ORDERAB LES [facility] [place] [address] documented in this encounter Visit Diagnoses Diagnosis Positive FRANCISCO (antinuclear antibody) Other and unspecified nonspecific immunological findings documented in this encounter Care Teams Bulk Station Operator Relationship Specialty Start Date End Date Magdalena Acosta MD [address] [place] [address] PCP - General Family Medicine 02/05/23 documented as of this encounter
--- OUTSIDE RECORDS SUMMARY | 2024-05-23 14:08 | XMS_ITS | Encounter Summary ---
Author Organization [facility] [place] [address] Care Team Providers Care Fence Installer Foreman Name Role Phone Junaid Deborah Shields APRN Primary Care Provider [phone] Encounter Details Date Type Department Care Team (Latest Contact Info) Description 11/09/2022 10:37 AM EDT - 11/09/2022 4:53 PM EDT Hospital Encounter [place] [address] Nitesh Escobedo MD [facility] [place] [address] Aortic valve stenosis, etiology of cardiac valve [...] Marek Bonilla MD [facility] New Medications to be Picked Up None For questions regarding this document or issues relating to this hospitalization on the Medical Service, please contact your inpatient physician through the [facility] Seed And Fertilizer Specialist . Issues afterhours and on weekends will be handled by the Hospitalist staff on-call. * Attachments The following attachments cannot be sent through Care Everywhere. * Coronary Angiogram: Post-op ([place]) * Right Heart Catheterization: Pulmonary Artery Catheterization: Post-op ([place]) documented in this encounter Medications at [...] MD - 11/09/2022 11:20 AM EDT . [facility] Interventional Cardiology Adult Pre-Procedure H&P Update: Cardiac Catheterization Purnima Thacker [id number] 1955 Chief Complaint: BONILLA HPI: Purnima Thacker [...] Marrero MD Interventional Cardiology 11/09/22 11:43 AM [facility] Pager: [phone] documented in this encounter Plan of Treatment Upcoming Encounters Date Type Department Care Team (Late st Contact Info) Description 06/05/2024 2:00 PM EST Hospital Encounter Outpatient [place] [address] Markel Borjas MD [facility] [address] [place] [address] 06/05/2024 2:00 PM EST - 06/05/2024 3:00 PM EST Surgery Outpatient [place] [address] Markel Borjas MD [facility] [address] [place] [address] (OSC MSURG) BONE MARROW BIOPSY AND ASPIRATION; DIAGNOSTIC (WRVU 1.44) 06/23/2024 2:00 PM EST Office Visit [place] [address] Markel Borjas MD [facility] [address] [place] [address] 03/01/2025 4:15 PM EDT Office Visit Dermatology at [place] [address] [place] [address] Marek Bonilla MD [address] [place] [address] Scheduled Procedures Name Priority Associated Diagnoses Date/Ti [...] & Arts W/Inj & Angio Img S&I ([id number]) 11/09/2022 11:51 AM EDT Aortic valve stenosis, etiology of cardiac valve disease unspecified EKG 12-LEAD Routine 11/09/2022 11:17 AM EDT Aortic valve stenosis, etiology of cardiac valve disease unspecified documented in this encounter Results * CARDIAC CATHETERIZATION (11/09/2022 1:05 PM EDT) Anatomical Region Laterality Modality Other Narrative 11/09/2022 2:01 PM EDT ?[facility] ? Cardiac Catheterization/Intervention Report ? Patient Name: Kirstie, Purnima M. ? Procedure Date: 11/09/2022 ? A #: [id number] ? Primary Physician: Nitesh Escobedo ? Case #: [id number] ? File Name: [id number] ? Catheterization Order Number: [id number] ? [facility] ? Final Report [place], [place] ? Patient Name: ? Purnima M. Kirstie ? ID#: ?[id number] ? : ?1955 ? Procedure Date: ? [...] (Bezet) 457 ms MUSE SYSTEM Calculated P [place] 44 degrees MUSE SYSTEM Calculated R [place] 33 degrees MUSE SYSTEM Calculated T [place] 30 degrees MUSE SYSTEM INTERPRETATION Sinus rhythm Occasional Premature ventricular complexes Otherwise normal ECG When compared with ECG of 21-SEP-2016 12:26, Premature ventricular complexes are now Present IN interval has decreased Nonspecific T wave abnormality has replaced inverted T waves in Inferior leads I personally reviewed the tracing and edited the fellows interpretation Confirmed by fellow MD Anitha, Carissa ([id number]) on 11/09/2022 6:17:28 PM Confirmed by Elsa [...] MD) documented in this encounter Care Teams Fence Installer Foreman Relationship Specialty Start Date End Date Deborah Quiroga, [employer] PIPE SUPERVISOR PCP - General Family Medicine 03/24/16 02/04/23 documented as of this encounter
--- OUTSIDE RECORDS SUMMARY | 2024-05-23 14:08 | XMS_ITS | Encounter Summary ---
Author Organization [facility] [place] [address] Care Team Providers Care Vest Presser Name Role Phone Deborah Quiroga APRN Primary Care Provider Encounter Details Date Type Department Care Team (Late st Contact Info) Description 11/09/2022 11:30 AM EDT - 11/09/2022 12:30 PM EDT [place] [address] Nitesh Escobedo MD [facility] [place] [address] CARDIAC CATHETERIZATION Social History Tobacco Use Types [...] Bonilla MD [facility] New Medications to be Picked Up None For questions regarding this document or issues relating to this hospitalization on the Medical Service, please contact your inpatient physician through the [facility] Accounting Software Specialist . Issues afterhours and on weekends will be handled by the Hospitalist staff on-call. * Attachments The following attachments cannot be sent through Care Everywhere. * Coronary Angiogram: Post-op (Panamanian) * Right Heart Catheterization: Pulmonary Artery Catheterization: Post-op (Panamanian) documented in this encounter Medications at Time of Discharge Medication Sig Dispensed Refills Start Date End Date nystatin (MYCOSTATIN) 100,000 unit/gram Powder Apply topically 2 times daily as needed. 10/22/2022 CoVi TechnologiesTouch Verio test strips Strip USE DAILY 01/03/2022 [employer]ToInCrowd Delica Plus Lancet 33 gauge Misc USE [...] MD - 11/09/2022 11:20 AM EDT . [facility] Interventional Cardiology Adult Pre-Procedure H&P Update: Cardiac Catheterization Purnima Thacker [id number] 1955 Chief Complaint: BONILLA HPI: Purnima Thacker [...] Marrero MD Interventional Cardiology 11/09/22 11:43 AM [facility] Pager: [phone] documented in this encounter Plan of Treatment Upcoming Encounters Date Type Department Care Team (Late st Contact Info) Description 06/05/2024 2:00 PM EST Hospital Encounter [place] [address] Markel Borjas MD [facility] DR HEM[place] [address] 06/05/2024 2:00 PM EST - 06/05/2024 3:00 PM EST Surgery [place] [address] Markel Borjas MD [facility] DR HEM[place] [address] (OSC MSURG) BONE MARROW BIOPSY AND ASPIRATION; DIAGNOSTIC (WRVU 1.44) 06/23/2024 2:00 PM EST Office Visit [place] [address] Markel Borjas MD [facility] DR HEMATOLOG[place] [address] 03/01/2025 4:15 PM EDT Office Visit Dermatology at [place] [address] [place] [address] Marek Bonilla MD [address], [place] [address] Scheduled Procedures Name Priority Associated Diagnoses Date/Ti me (OSC MSURG) BONE MARROW BIOPSY AND ASPIRATION; DIAGNOSTIC (WRVU 1.44) Anemia, in pt with longstanding neutropenia 06/05/2024 2:00 PM EST documented as of this encounter Procedures Procedure Name Priority Date/Time Associated Diagnosis Comments CARDIAC CATHETERIZATION Routine 11/10/19 1:05 PM EDT Aortic valve stenosis, etiology of cardiac valve disease unspecified Cath [facility] Left Heart Cath & Arts W/Inj & Angio Img S&I ([id number]) 11/09/2022 11:51 AM EDT Aortic valve stenosis, etiology of cardiac valve disease unspecified EKG 12-LEAD Routine 11/09/2022 11:17 AM EDT Aortic valve stenosis, etiology of cardiac valve disease unspecified documented in this encounter Results * CARDIAC CATHETERIZATION (11/09/2022 1:05 PM EDT) Anatomical Region Laterality Modality Other Narrative 11/09/2022 2:01 PM EDT ?[facility] ? Cardiac Catheterization/Intervention Report ? Patient Name: Kirstie, Purnima M. ? Procedure Date: 11/09/2022 ? A #: [id number] ? Primary Physician: Nitesh Escobedo ? Case #: [id number] ? File Name: [id number] ? Catheterization Order Number: [id number] ? [facility] ? Final Report [place], [place] ? Patient Name: ? Purnima M. Kirstie ? ID#: ?[id number] ? : ?1955 ? Procedure Date: ? [...] (Bezet) 457 ms MUSE SYSTEM Calculated P Lincoln 44 degrees MUSE SYSTEM Calculated R [place] 33 degrees MUSE SYSTEM Calculated T [place] 30 degrees MUSE SYSTEM INTERPRETATION Sinus rhythm Occasional Premature ventricular complexes Otherwise normal ECG When compared with ECG of 21-SEP-2016 12:26, Premature ventricular complexes are now Present TN interval has decreased Nonspecific T wave abnormality has replaced inverted T waves in Inferior leads I personally reviewed the tracing and edited the fellows interpretation Confirmed by fellow MD Anitha, Carissa ([id number]) on 11/09/2022 6:17:28 PM Confirmed by Elsa [...] MD) documented in this encounter Care Teams Vest Presser Relationship Specialty Start Date End Date Deborah Quiroga, ASSOCIATE PRINCIPAL PCP - General Family Medicine 03/24/16 02/04/23 documented as of this encounter
--- OUTSIDE RECORDS SUMMARY | 2024-05-23 14:08 | XMS_ITS | Encounter Summary ---
Author Organization [facility] [place] [address] Care Team Providers Care Division Supervisor Name Role Phone Magdalena Acosta MD Primary Care Provider [phone] Encounter Details Date Type Department Care Team (Late st Contact Info) Description 03/29/2023 Notes Only Cardiology at [address] [phone] Vahid Plasencia, RN Social History Tobacco Use [...] 82/51; Mild AR; Moderate MR; Trace TR [facility] 11/09/2022: Non obstructive CAD STS 4.1 Plan:Schedule SDM clinic, diagnostics and frailty assessment. documented in this encounter Plan of Treatment Upcoming Encounters Date Type Department Care Team (Late st Contact Info) Description 06/05/2024 2:00 PM EST Hospital Encounter Outpatient [place] [phone] Markel Borjas MD [facility] DR HEM[place] [address] 06/05/2024 2:00 PM EST - 06/05/2024 3:00 PM EST Surgery Outpatient [place] [address] Markel Borjas MD [facility] DR [place] [address] (OSC MSURG) BONE MARROW BIOPSY AND ASPIRATION; DIAGNOSTIC (WRVU 1.44) 06/23/2024 2:00 PM EST Office Visit H[place]ology [place] [address] Markel Borjas MD [facility] DR [place] [address] 03/01/2025 4:15 PM EDT Office Visit Dermatology at [place] [address] [place] [address] Marek Bonilla MD [address], [place] [address] Scheduled Procedures Name Priority Associated Diagnoses Date/Ti me (OSC MSURG) BONE MARROW BIOPSY AND ASPIRATION; DIAGNOSTIC (WRVU 1.44) Anemia, in pt with longstanding neutropenia 06/05/2024 2:00 PM EST documented as of this encounter Visit Diagnoses Not on filedocumented in this encounter Care Teams Division Supervisor Relationship Specialty Start Date End Date Magdalena Acosta MD [address] [place] [address] PCP - General Family Medicine 02/05/23 documented as of this encounter
--- OUTSIDE RECORDS SUMMARY | 2024-05-23 14:08 | XMS_ITS | Encounter Summary ---
[place] [address] Care Team Providers Care Container Shop Welder Name Role Phone Magdalena Acosta MD Primary Care Provider [phone] Reason for Visit * Reason Comments Skin Lesion Encounter Details Date Type Department Care Team (Late st Contact Info) Description 04/20/2023 10:00 AM EDT Office Visit Dermatology at [address] [address] Marek Bonilla MD [address] [facility] [address], [place] [address] Seborrheic keratosis Social History Tobacco Use Types [...] cutaneous and ocular 3. Previously told by project management instructor that she had corneal tears from her [...] PM EST Hospital Encounter Outpatient [place] [address] Markel Borjas MD [facility] [place] [address] 06/05/2024 2:00 PM EST - 06/05/2024 3:00 PM EST Surgery Outpatient [place] [phone] Markel Borjas MD [facility] [place] [address] (OSC MSURG) BONE MARROW BIOPSY AND ASPIRATION; DIAGNOSTIC (WRVU 1.44) 06/23/2024 2:00 PM EST Office Visit Hematology [place] [address] Markel Borjas MD [facility] [place] [address] 03/01/2025 4:15 PM EDT Office Visit Dermatology at [address] [phone] Marek Bonilla MD [address], [place] [address] Scheduled Procedures Name Priority Associated Diagnoses Date/Ti me (OSC MSURG) BONE MARROW BIOPSY AND ASPIRATION; DIAGNOSTIC (WRVU 1.44) Anemia, in pt with longstanding neutropenia 06/05/2024 2:00 PM EST documented as of this encounter Visit Diagnoses Diagnosis Seborrheic keratosis Other seborrheic keratosis documented in this encounter Care Teams Container Shop Welder Relationship Specialty Start Date End Date Magdalena Acosta MD [address] [place] [address] PCP - General Family Medicine 02/05/23 documented as of this encounter
--- OUTSIDE RECORDS SUMMARY | 2024-05-23 14:08 | XMS_ITS | Encounter Summary ---
[place] [address] Care Team Providers Care Vending Manager Name Role Phone Magdalena Acosta MD Primary Care Provider [phone] Encounter Details Date Type Department Care Team [...] EST Hospital Encounter Outpatient [place] [phone] Markel Borjas MD [facility] [address] [place] [address] 06/05/2024 2:00 PM EST - 06/05/2024 3:00 PM EST Surgery Outpatient [place] [phone] Markel Borjas MD [facility] DR [place] [address] (OSC MSURG) BONE MARROW BIOPSY AND ASPIRATION; DIAGNOSTIC (WRVU 1.44) 06/23/2024 2:00 PM EST Office Visit Hematology [place] [address] Markel Borjas MD [facility] [address] [place] [address] 03/01/2025 4:15 PM EDT Office Visit Dermatology at [place] [address] [place] [address] Marek Bonilla MD [address], [place] [address] Scheduled Procedures Name Priority Associated Diagnoses Date/Ti me (OSC MSURG) BONE MARROW BIOPSY AND ASPIRATION; DIAGNOSTIC (WRVU 1.44) Anemia, in pt with longstanding neutropenia 06/05/2024 2:00 PM EST documented as of this encounter Visit Diagnoses Not on filedocumented in this encounter Care Teams Vending Manager Relationship Specialty Start Date End Date Magdalena Acosta MD [address] [place] [address] PCP - General Family Medicine 02/05/23 documented as of this encounter"
--- OUTSIDE RECORDS SUMMARY | 2024-05-23 14:08 | XMS_ITS | Encounter Summary ---
Author Organization [facility] Address [facility] [place] [address] Care Team Providers Care Trim Crew Supervisor Name Role Phone Ashley Quirogazac Shields APRN Primary Care Provider [phone] Reason for Referral * Consultation (Routine) - Closed Specialty Diagnoses / Procedures Referred By Contac t Referred To Contact Neurology Diagnoses Neck pain Popeye Rogers MD [facility] [place] [address] Kyra Haas MD [facility] [address] [address] Referral ID Status Reason Start Date Expiration Date V isits Requested Visits Authorized [id number] Closed Consult, Test & Treat 06/29/2022 06/29/2023 1 1 Reason for Visit * Reason Comments Neck Pain Weak in both arms, p ain and tingling in arms and hands Encounter Details Date Type Department Care Team (Late st Contact Info) Description 06/29/2022 10:20 AM EST Office Visit [place] [address] Popeye Rogers MD [facility] [place] [address] Neck pain Social History Tobacco Use Types [...] is negative bilaterally. She has a positive Raabella sign on the right. She has no [...] have EMG and nerve conduction studies in [place] that showed carpal tunnel syndrome. I do not have a copy of that report. documented in this encounter Plan of Treatment Upcoming Encounters Date Type Department Care Team (Late st Contact Info) Description 06/05/2024 2:00 PM EST Hospital Encounter Outpatient [place] [address] Markel Borjas MD [facility] [place] [address] 06/05/2024 2:00 PM EST - 06/05/2024 3:00 PM EST Surgery Outpatient [place] [address] Markel Borjas MD [facility] [place] [address] (OSC MSURG) BONE MARROW BIOPSY AND ASPIRATION; DIAGNOSTIC (WRVU 1.44) 06/23/2024 2:00 PM EST Office Visit Hematology [place] [address] Markel Borjas MD [facility] [place] [address] 03/01/2025 4:15 PM EDT Office Visit Dermatology at [address] [address] Marek Bonilla MD [address], [place] [address] Scheduled Procedures Name Priority Associated Diagnoses Date/Ti [...] Cervicalgia documented in this encounter Care Teams Trim Crew Supervisor Relationship Specialty Start Date End Date Deborah Quiroga APRN PCP - General Family Medicine 03/24/16 02/04/23 documented as of this encounter
--- OUTSIDE RECORDS SUMMARY | 2024-05-23 14:08 | XMS_ITS | Encounter Summary ---
Author Organization [facility] [place] [address] Care Team Providers Care Charrer Name Role Phone Magdalena Acosta MD Primary Care Provider Reason for Referral * Consultation (Routine) - Closed Specialty Diagnoses / Procedures Referred By Contac t Referred To Contact Rheumatology Diagnoses Weakness Kyra Haas MD [facility] [address] [place] [address] [facility] Rheumatology [address] [place] [phone] Referral ID Status Reason Start Date Expiration Date V isits Requested Visits Authorized [id number] Closed Consult, Test & Treat PCP Updated and/or Approved 02/25/2023 02/25/2024 6 6 Encounter Details Date Type Department Care Team (Late st Contact Info) Description 02/25/2023 Transcribe Orders eDH Incoming Referrals [phone] Magdalena Acosta MD [address] [place] [address] Weakness Social History Tobacco Use [...] PM EST Hospital Encounter [place]patient [place] [phone] Markel Borjas MD [facility] [address] [place] [address] 06/05/2024 2:00 PM EST - 06/05/2024 3:00 PM EST Surgery [place] [phone] Markel Borjas MD [facility] DR [place] [address] (OSC MSURG) BONE MARROW BIOPSY AND ASPIRATION; DIAGNOSTIC (WRVU 1.44) 06/23/2024 2:00 PM EST Office Visit Hematology [place] [address] Markel Borjas MD [facility] DR [place] [address] 03/01/2025 4:15 PM EDT Office Visit Dermatology at [address] [place] [phone] Marek Bonilla MD [address], [place] [address] Scheduled Procedures Name Priority Associated Diagnoses Date/Ti [...] fatigue documented in this encounter Care Teams Charrer Relationship Specialty Start Date End Date Magdalena Acosta MD [address] [place] [address] PCP - General Family Medicine 02/05/23 documented as of this encounter
--- OUTSIDE RECORDS SUMMARY | 2024-05-23 14:08 | XMS_ITS | Encounter Summary ---
[place] [address] Care Team Providers Care Rolled Oats Mill Operator Name Role Phone Magdalena Acosta MD Primary Care Provider [phone] Reason for Visit * Reason Comments Suture / Staple Removal Encounter Details Date Type Department Care Team (Late st Contact Info) Description 02/16/2023 10:00 AM EDT Office Visit Dermatology at [place] [address] [place] [address] Marek Bonilla MD [address] [facility], [address] A DERMATOLOGY [place], [place] [phone] Visit for suture removal Social History Tobacco [...] PM EST Hospital Encounter Outpatient [place] [address] [facility] DR [place] [address] 06/05/2024 2:00 PM EST - 06/05/2024 3:00 PM EST Surgery Outpatient [place] [phone] [facility] DR [place]EMATOLOGY [place] [address] (OSC MSURG) BONE MARROW BIOPSY AND ASPIRATION; DIAGNOSTIC (WRVU 1.44) 06/23/2024 2:00 PM EST Office Visit Hematology [place] [address] [facility] DR [place]EM[place]OLOG[place] [address] 03/01/2025 4:15 PM EDT Office Visit Dermatology at [address] [place] [address] Marek Bonilla MD [address], [place] [address] Scheduled Procedures Name Priority Associated Diagnoses Date/Ti me (OSC MSURG) BONE MARROW BIOPSY AND ASPIRATION; DIAGNOSTIC (WRVU 1.44) Anemia, in pt with longstanding neutropenia 06/05/2024 2:00 PM EST documented as of this encounter Visit Diagnoses Diagnosis Visit for suture removal Encounter for removal of sutures documented in this encounter Care Teams Rolled Oats Mill Operator Relationship Specialty Start Date End Date Magdalena Acosta MD [address] [place] [address] PCP - General Family Medicine 02/05/23 documented as of this encounter
--- OUTSIDE RECORDS SUMMARY | 2024-05-23 14:08 | XMS_ITS | Encounter Summary ---
Author Organization [facility] [place] [address] Care Team Providers Care Fern Gatherer Name Role Phone Deborah Quiroga APRN Primary Care Provider [phone] Encounter Details Date Type Department Care Team (Late st Contact Info) Description 06/17/2022 Ancillary Procedure Radiology Library at [facility] [place] [phone] Deborah Quiroga APRN [address] [place] [phone] Social History Tobacco Use Types Packs/Day [...] PM EST Hospital Encounter [place]patient [place] [phone] Markel Borjas MD [facility] HEMATOLOGY [place] [address] 06/05/2024 2:00 PM EST - 06/05/2024 3:00 PM EST Surgery [place] [address] Markel Borjas MD [facility] DR [place] [address] (OSC MSURG) BONE MARROW BIOPSY AND ASPIRATION; DIAGNOSTIC (WRVU 1.44) 06/23/2024 2:00 PM EST Office Visit Hematology [place] [address] Markel Borjas MD [facility] [address] [place] [address] 03/01/2025 4:15 PM EDT Office Visit Dermatology at [place] [address] [place] [address] Marek Bonilla MD [address], [place] [address] Scheduled Procedures Name Priority Associated Diagnoses Date/Ti [...] Quiroga APRN IMGerman FILM LIBRARY OR DERABLES [place], [place] documented in this encounter Visit Diagnoses Not on filedocumented in this encounter Care Teams Fern Gatherer Relationship Specialty Start Date End Date Deborah Quiroga APRN PCP - General Family Medicine 03/24/16 02/04/23 documented as of this encounter
--- OUTSIDE RECORDS SUMMARY | 2024-05-23 14:08 | XMS_ITS | Encounter Summary ---
Author Organization [facility] [place] [address] Care Team Providers Care Installations Inspector Name Role Phone Deborah Quiroga APRN Primary Care Provider [phone] Encounter Details Date Type Department Care Team (Late st Contact Info) Description 06/08/2022 Ancillary Procedure Radiology Library at [facility] [place] [phone] Deborah Quiroga APRN [address] [place] [phone] Social History Tobacco Use Types Packs/Day [...] PM EST Hospital Encounter Outpatient [place] [phone] Markel Borjas MD [facility] HEMATOLOGY [place] [address] 06/05/2024 2:00 PM EST - 06/05/2024 3:00 PM EST Surgery Outpatient [place] [address] Markel Borjas MD [facility] DR [place] [address] (OSC MSURG) BONE MARROW BIOPSY AND ASPIRATION; DIAGNOSTIC (WRVU 1.44) 06/23/2024 2:00 PM EST Office Visit Hematology [place] [address] Markel Borjas MD [facility] DR [place] [address] 03/01/2025 4:15 PM EDT Office Visit Dermatology at [place] [address] [place] [phone] Marek Bonilla MD [address], [place] [address] Scheduled Procedures Name Priority Associated Diagnoses Date/Ti [...] Quiroga APRN IMGerman FILM LIBRARY OR DERABLES [place], [place] documented in this encounter Visit Diagnoses Not on filedocumented in this encounter Care Teams Installations Inspector Relationship Specialty Start Date End Date Deborah Quiroga APRN PCP - General Family Medicine 03/24/16 02/04/23 documented as of this encounter
--- OUTSIDE RECORDS SUMMARY | 2024-05-23 14:08 | XMS_ITS | Encounter Summary ---
[place] [address] Care Team Providers Care Director Diabetes Name Role Phone Magdalena Acosta MD Primary Care Provider [phone] Encounter Details Date Type Department Care Team [...] PM EST Hospital Encounter [place] [address] Markel Borjas MD [facility] DR [place] [address] 06/05/2024 2:00 PM EST - 06/05/2024 3:00 PM EST Surgery [place] [phone] Markel Borjas MD [facility] DR [place] [address] (OSC MSURG) BONE MARROW BIOPSY AND ASPIRATION; DIAGNOSTIC (WRVU 1.44) 06/23/2024 2:00 PM EST Office Visit Hematology [place] [address] Markel Borjas MD [facility] DR [place] [address] 03/01/2025 4:15 PM EDT Office Visit Dermatology at [place] [address] [place] [address] Marek Bonilla MD [address], [place] [address] Scheduled Procedures Name Priority Associated Diagnoses Date/Ti me (OSC MSURG) BONE MARROW BIOPSY AND ASPIRATION; DIAGNOSTIC (WRVU 1.44) Anemia, in pt with longstanding neutropenia 06/05/2024 2:00 PM EST documented as of this encounter Visit Diagnoses Not on filedocumented in this encounter Care Teams Director Diabetes Relationship Specialty Start Date End Date Magdalena Acosta MD [address] [place] [address] PCP - General Family Medicine 02/05/23 documented as of this encounter
--- OUTSIDE RECORDS SUMMARY | 2024-05-23 14:08 | XMS_ITS | Encounter Summary ---
Author Organization [facility] Address [facility] [place] [address] Care Team Providers Care Document Review Specialist Name Role Phone Deborah Quiroga APRN Primary Care Provider [phone] Reason for Visit * Consultation (Routine) - Closed Specialty Diagnoses / Procedures Referred By Contkrystle t Referred To Contact Rheumatology Diagnoses Positive FRANCISCO (antinuclear antibody) Arthralgia, unspecified joint Sandy Wu APRN [address] [place] [address] [facility] [address] [place] [address] Referral ID Status Reason Start Date Expiration Date V isits Requested Visits Authorized [id number] Closed Consult, Test & Treat PCP Updated and/or Approved 01/01/2022 01/01/2023 6 6 Encounter Details Date Type Department Care Team (Latest Contact Info) Description 01/20/2022 10:00 AM EDT Office [place] [address] Raymond Loredo MD [facility] [place] [address] Rosacea; Raynaud's phenomenon without gangrene; [...] over radiocarpal or ulnocarpal joints. Hands: Normal manager change and claw. SJC/TJC 0/0. Hips: Full motion, [...] PM EST Hospital Encounter [place] [address] Markel Borjas MD [facility] DR [place] [address] 06/05/2024 2:00 PM EST - 06/05/2024 3:00 PM EST Surgery [place]patient [place] [address] Markel Borjas MD [facility] DR [place] [address] (OSC MSURG) BONE MARROW BIOPSY AND ASPIRATION; DIAGNOSTIC (WRVU 1.44) 06/23/2024 2:00 PM EST Office Visit Hematology [place] [address] Markel Borjas MD [facility] DR [place] [address] 03/01/2025 4:15 PM EDT Office Visit Dermatology at [address] [place] [address] Marek Bonilla MD [address], [place] [address] Scheduled Procedures Name Priority Associated Diagnoses Date/Ti [...] syndrome documented in this encounter Care Teams Document Review Specialist Relationship Specialty Start Date End Date Deobrah Quiroga APRN PCP - General Family Medicine 03/24/16 02/04/23 documented as of this encounter
--- OUTSIDE RECORDS SUMMARY | 2024-05-23 14:08 | XMS_ITS | Encounter Summary ---
Author Organization [facility] [place] [address] Care Team Providers Care Wool Mixer Name Role Phone Deborah Quiroga APRN Primary Care Provider [phone] Encounter Details Date Type Department Care Team (Latest Contact Info) Description 07/03/2022 1:36 PM EST - 07/03/2022 11:59 PM EST Hospital Encounter Hematology [place] [address] Discharge Disposition: Home Social History Tobacco Use [...] PM EST Hospital Encounter [place]patient [place] [address] Markel Borjas MD [facility] DR [place] [address] 06/05/2024 2:00 PM EST - 06/05/2024 3:00 PM EST Surgery [place] [address] Markel Borjas MD [facility] DR [place] [address] (OSC MSURG) BONE MARROW BIOPSY AND ASPIRATION; DIAGNOSTIC (WRVU 1.44) 06/23/2024 2:00 PM EST Office Visit Hematology [place] [address] Markel Borjas MD [facility] DR [place] [address] 03/01/2025 4:15 PM EDT Office Visit Dermatology at [place] [address] [place] [address] Marek Bonilla MD [address], [place] [address] Scheduled Procedures Name Priority Associated Diagnoses Date/Ti [...] EST) Folate >20.0 4.8 - 24.2 ng/mL [facility] Blood Venous Draw / Unknown 07/03/2022 1:59 PM EST 07/03/2022 2:13 PM EST Narrative Resulting Agency Comment Spec In Lab Markel Borjas MD CHEMISTRY ORDERABL ES [facility] [place] [address] * Vitamin B12 (07/03/2022 1:59 PM EST) Vitamin B12 449 232 - 1,245 pg/mL [facility] Blood Venous Draw / Unknown 07/03/2022 1:59 PM EST 07/03/2022 2:13 PM EST Narrative Resulting Agency Comment Spec In Lab Markel Borjas MD CHEMISTRY ORDERABL ES [facility] [place] [id number] documented in this encounter Visit Diagnoses Not on filedocumented in this encounter Care Teams Wool Mixer Relationship Specialty Start Date End Date Deborah Quiroga, RENAL NURSE PCP - General Family Medicine 03/24/16 02/04/23 documented as of this encounter
--- OUTSIDE RECORDS SUMMARY | 2024-05-23 14:08 | XMS_ITS | Encounter Summary ---
Author Organization [facility] [place] [address] Care Team Providers Care Renal Medicine Specialist Name Role Phone Magdalena Acosta MD Primary Care Provider [phone] Encounter Details Date Type Department Care Team (Late st Contact Info) Description 02/17/2023 2:00 PM EDT Office [place] [phone] Alirio Esparza MD Aortic valve stenosis, etiology [...] PM EST Hospital Encounter Outpatient [place] [address] Markel Borjas MD [facility] [address] [place] [address] 06/05/2024 2:00 PM EST - 06/05/2024 3:00 PM EST Surgery Outpatient [place] [address] Markel Borjas MD [facility] [address] [place] [address] (OSC MSURG) BONE MARROW BIOPSY AND ASPIRATION; DIAGNOSTIC (WRVU 1.44) 06/23/2024 2:00 PM EST Office Visit Hematology [place] [address] Markel Borjas MD [facility] [address] [place] [address] 03/01/2025 4:15 PM EDT Office Visit Dermatology at [place] [address] [place] [address] Marek Bonilla MD [address], [place] [address] Scheduled Procedures Name Priority Associated Diagnoses Date/Ti me (OSC MSURG) BONE MARROW BIOPSY AND ASPIRATION; DIAGNOSTIC (WRVU 1.44) Anemia, in pt with longstanding neutropenia 06/05/2024 2:00 PM EST documented as of this encounter Visit Diagnoses Diagnosis Aortic valve stenosis, etiology of cardiac valve disease unspecified documented in this encounter Care Teams Renal Medicine Specialist Relationship Specialty Start Date End Date Magdalena Acosta MD [address] [place] [address] PCP - General Family Medicine 02/05/23 documented as of this encounter
--- OUTSIDE RECORDS SUMMARY | 2024-05-23 14:08 | XMS_ITS | Encounter Summary ---
Author Organization [facility] Address [facility] [place] [address] Care Team Providers Care Sales Agent Fire Insurance Name Role Phone Magdalena Acosta MD Primary Care Provider [phone] Encounter Details Date Type Department Care Team (Late st Contact Info) Description 04/27/2023 3:00 PM EDT Office [place] [address] Magdalena Peralta MD [facility] [place] [address] Mixed connective tissue disease Social History Tobacco [...] 1:5120 speckled; VIC negative; Myositis panel with MECHATRONICS TECHNICIAN ab 149.1 (positive); Anti U1RNP IgG [...] PM EST Hospital Encounter Outpatient [place] [address] Markel Borjas MD [facility] DR HEMATOLOGY [place] [address] 06/05/2024 2:00 PM EST - 06/05/2024 3:00 PM EST Surgery Outpatient [place] [address] Markel Borjas MD [facility] DR HEMATOLOGY [place] [address] (OSC MSURG) BONE MARROW BIOPSY AND ASPIRATION; DIAGNOSTIC (WRVU 1.44) 06/23/2024 2:00 PM EST Office Visit Hematology [place] [address] Markel Borjas MD [facility] DR HEMATOLOGY [place] [address] 03/01/2025 4:15 PM EDT Office Visit Dermatology at [place] [address] [place] [address] Marek Bonilla MD [address], [place] [address] Scheduled Procedures Name Priority Associated Diagnoses Date/Ti me (OSC MSURG) BONE MARROW BIOPSY AND ASPIRATION; DIAGNOSTIC (WRVU 1.44) Anemia, in pt with longstanding neutropenia 06/05/2024 2:00 PM EST documented as of this encounter Visit Diagnoses Diagnosis Mixed connective tissue disease Other specified diffuse disease of connective tissue documented in this encounter Care Teams Sales Agent Fire Insurance Relationship Specialty Start Date End Date Magdalena Acosta MD [address] [place] [address] PCP - General Family Medicine 02/05/23 documented as of this encounter
--- OUTSIDE RECORDS SUMMARY | 2024-05-23 14:08 | XMS_ITS | Encounter Summary ---
Author Organization [facility] Erika [place] [address] Care Team Providers Care Outpatient Physical Therapist Assistant Name Role Phone Ashley Quirogazac Shields APRN Primary Care Provider [phone] Encounter Details Date Type Department Care Team (Late st Contact Info) Description 11/02/2022 Orders [place] [address] Emily Lyons PA [facility] [place] [address] Aortic valve stenosis, etiology of cardiac valve [...] PM EST Hospital Encounter Outpatient [place] [address] Markel Borjas MD [facility] HEMATOLOGY [place] [address] 06/05/2024 2:00 PM EST - 06/05/2024 3:00 PM EST Surgery Outpatient [place] [address] Markel Borjas MD [facility] DR HEMATOLOGY [place] [address] (OSC MSURG) BONE MARROW BIOPSY AND ASPIRATION; DIAGNOSTIC (WRVU 1.44) 06/23/2024 2:00 PM EST Office Visit Hematology [place] [address] Markel Borjas MD [facility] DR HEMATOLOGY [place] [address] 03/01/2025 4:15 PM EDT Office Visit Dermatology at [place] [address] [place] [address] Marek Bonilla MD [address], [place] [address] Scheduled Procedures Name Priority Associated Diagnoses Date/Ti me (OSC MSURG) BONE MARROW BIOPSY AND ASPIRATION; DIAGNOSTIC (WRVU 1.44) Anemia, in pt with longstanding neutropenia 06/05/2024 2:00 PM EST documented as of this encounter Visit Diagnoses Diagnosis Aortic valve stenosis, etiology of cardiac valve disease unspecified documented in this encounter Care Teams Outpatient Physical Therapist Assistant Relationship Specialty Start Date End Date Deborah Quiroga APRN PCP - General Family Medicine 03/24/16 02/04/23 documented as of this encounter
--- OUTSIDE RECORDS SUMMARY | 2024-05-23 14:08 | XMS_ITS | Encounter Summary ---
Author Organization [facility] [place] [address] Care Team Providers Care Java Enterprise Architect Name Role Phone Magdalena Acosta MD Primary Care Provider [phone] Encounter Details Date Type Department Care Team (Late st Contact Info) Description 03/29/2023 Orders Only Cardiology at [address] [phone] Ranjan Delgado MD [facility] [place] [address] Severe aortic stenosis (Primary Dx) Social History [...] PM EST Hospital Encounter [place]patient [place] [address] Markel Borjas MD [facility] [place] [address] 06/05/2024 2:00 PM EST - 06/05/2024 3:00 PM EST Surgery [place] [address] Markel Borjas MD [facility] [address] [place] [address] (OSC MSURG) BONE MARROW BIOPSY AND ASPIRATION; DIAGNOSTIC (WRVU 1.44) 06/23/2024 2:00 PM EST Office Visit Hematology [place] [address] Markel Borjas MD [facility] DR [place] [address] 03/01/2025 4:15 PM EDT Office Visit Dermatology at [place] [address] [place] [address] Marek Bonilla MD [address], [place] [address] Scheduled Orders Name Type Priority Associated Diagnoses [...] disorders documented in this encounter Care Teams Java Enterprise Architect Relationship Specialty Start Date End Date Magdalena Acosta MD [address] [place] [address] PCP - General Family Medicine 02/05/23 documented as of this encounter
--- OUTSIDE RECORDS SUMMARY | 2024-05-23 14:08 | XMS_ITS | Encounter Summary ---
[place] [address] Care Team Providers Care Hairspring Vibrator Name Role Phone Magdalena Acosta MD Primary Care Provider [phone] Encounter Details Date Type Department Care Team [...] PM EST Hospital Encounter [place] [address] Markel Borjas MD [facility] DR HEMATOLOGY [place] [address] 06/05/2024 2:00 PM EST - 06/05/2024 3:00 PM EST Surgery [place] [address] Markel Borjas MD [facility] DR HEMATOLOGY [place] [address] (OSC MSURG) BONE MARROW BIOPSY AND ASPIRATION; DIAGNOSTIC (WRVU 1.44) 06/23/2024 2:00 PM EST Office Visit Hematology [place] [address] Markel Borjas MD [facility] DR HEMATOLOGY [place] [address] 03/01/2025 4:15 PM EDT Office Visit Dermatology at [place] [address] [place] [address] Marek Bonilla MD [address], [place] [address] Scheduled Procedures Name Priority Associated Diagnoses Date/Ti me (OSC MSURG) BONE MARROW BIOPSY AND ASPIRATION; DIAGNOSTIC (WRVU 1.44) Anemia, in pt with longstanding neutropenia 06/05/2024 2:00 PM EST documented as of this encounter Visit Diagnoses Not on filedocumented in this encounter Care Teams Hairspring Vibrator Relationship Specialty Start Date End Date Magdalena Acosta MD [address] [place] [address] PCP - General Family Medicine 02/05/23 documented as of this encounter
--- OUTSIDE RECORDS SUMMARY | 2024-05-23 14:08 | XMS_ITS | Encounter Summary ---
Author Organization [facility] [address] Care Team Providers Care Mechanical Fitter Name Role Phone Junaid, Deborah Shields APRN Primary Care Provider [phone] Encounter Details Date Type Department Care Team [...] PM EST Hospital Encounter [place]patient [place] [address] Markel Borjas MD [facility] DR HEMATOLOGY [place] [address] 06/05/2024 2:00 PM EST - 06/05/2024 3:00 PM EST Surgery [place]patient [place] [address] Markel Borjas MD [facility] DR HEMATOLOGY [place] [address] (OSC MSURG) BONE MARROW BIOPSY AND ASPIRATION; DIAGNOSTIC (WRVU 1.44) 06/23/2024 2:00 PM EST Office Visit Hematology [place] [address] Markel Borjas MD [facility] DR HEMATOLOGY [place] [address] 03/01/2025 4:15 PM EDT Office Visit Dermatology at [place] [address] [place] [address] Marek Bonilla MD [address], [address] [place] [address] Scheduled Procedures Name Priority Associated Diagnoses Date/Ti me (OSC MSURG) BONE MARROW BIOPSY AND ASPIRATION; DIAGNOSTIC (WRVU 1.44) Anemia, in pt with longstanding neutropenia 06/05/2024 2:00 PM EST documented as of this encounter Visit Diagnoses Not on filedocumented in this encounter Care Teams Mechanical Fitter Relationship Specialty Start Date End Date Deborah Quiroga APRN PCP - General Family Medicine 03/24/16 02/04/23 documented as of this encounter
--- OUTSIDE RECORDS SUMMARY | 2024-05-23 14:08 | XMS_ITS | Encounter Summary ---
Author Organization [facility] [place] [address] Care Team Providers Care Alterations Sewer Name Role Phone Magdalena Acosta MD Primary Care Provider [phone] Encounter Details Date Type Department Care Team (Latest Contact Info) Description 02/05/2023 9:33 PM EDT - 02/05/2023 11:59 PM EDT Hospital [place] [address] Discharge Disposition: Home Social History Tobacco Use [...] PM EST Hospital Encounter Outpatient [place] [address] Markel Borjas MD [facility] [address] [place] [address] 06/05/2024 2:00 PM EST - 06/05/2024 3:00 PM EST Surgery Outpatient [place] [address] Markel Borjas MD [facility] [place] [address] (OSC MSURG) BONE MARROW BIOPSY AND ASPIRATION; DIAGNOSTIC (WRVU 1.44) 06/23/2024 2:00 PM EST Office Visit Hematology [place] [address] Markel Borjas MD [facility] DR [place] [address] 03/01/2025 4:15 PM EDT Office Visit Dermatology at [place] [address] [place] [address] Marek Bonilla MD [address], [place] [address] Scheduled Procedures Name Priority Associated [...] Report (02/05/2023 3:00 PM EDT) Final Diagnosis [id number] ? Location: OPW The signing pathologist has [...] 8:04 ?? Dermatopathologist Performed at: ??-[facility] [place], [place] [address] Acoustic Intelligence Specialist: Kunal Rubi MD, FCAP, ??CLIA Certificate: [id number] DISCUSSION If there is an obvious clinical [...] A1. ??sns 02/16/2023 8:04 AM EDT [facility] SPECIMEN FROM SKIN / Unknown 02/05/2023 3:00 PM EDT 02/05/2023 3:00 PM EDT Marek Bonilla MD PATHOLOGY/CYTOLOGY O REMI Performing Organization Address City/State/RUST Co de Phone Number [facility] [place] [phone] [facility] [place] [address] documented in this encounter Visit Diagnoses Not on filedocumented in this encounter Care Teams Alterations Sewer Relationship Specialty Start Date End Date Magdalena Acosta MD [address] [place] [address] PCP - General Family Medicine 02/05/23 documented as of this encounter
--- OUTSIDE RECORDS SUMMARY | 2024-05-23 14:08 | XMS_ITS | Encounter Summary ---
[place] [address] Care Team Providers Care Hr Manager Name Role Phone Magdalena Acosta MD Primary Care Provider [phone] Encounter Details Date Type Department Care Team [...] PM EST Hospital Encounter Outpatient [place] [address] Markel Borjas MD [facility] DR HEMATOLOGY [place] [address] 06/05/2024 2:00 PM EST - 06/05/2024 3:00 PM EST Surgery Outpatient [place] [address] Markel Borjas MD [facility] DR HEMATOLOGY [place] [address] (OSC MSURG) BONE MARROW BIOPSY AND ASPIRATION; DIAGNOSTIC (WRVU 1.44) 06/23/2024 2:00 PM EST Office Visit [place] [address] Markel Borjas MD [facility] DR HEMATOLOGY [place] [address] 03/01/2025 4:15 PM EDT Office Visit Dermatology at [place] [address] [place] [address] Marek Bonilla MD [address], [place] [address] Scheduled Procedures Name Priority Associated Diagnoses Date/Ti me (OSC MSURG) BONE MARROW BIOPSY AND ASPIRATION; DIAGNOSTIC (WRVU 1.44) Anemia, in pt with longstanding neutropenia 06/05/2024 2:00 PM EST documented as of this encounter Visit Diagnoses Not on filedocumented in this encounter Care Teams Hr Manager Relationship Specialty Start Date End Date Magdalena Acosta MD [address] [place] [address] PCP - General Family Medicine 02/05/23 documented as of this encounter
--- OUTSIDE RECORDS SUMMARY | 2024-05-23 14:08 | XMS_ITS | Encounter Summary ---
Author Organization [facility] Address [facility] Erika lópez[place] [address] Care Team Providers Care Project Financial Analyst Name Role Phone Deborah Quiroga ANURAG Primary Care Provider [phone] Encounter Details Date Type Department Care Team (Late st Contact Info) Description 01/09/2022 Refill Dermatology at [address] [address] Lupe Connor RN Social History [...] PM EST Hospital Encounter [place] [address] Markel Borjas MD [facility] DR [place] [address] 06/05/2024 2:00 PM EST - 06/05/2024 3:00 PM EST Surgery [place] [address] Markel Borjas MD [facility] DR [place] [address] (OSC MSURG) BONE MARROW BIOPSY AND ASPIRATION; DIAGNOSTIC (WRVU 1.44) 06/23/2024 2:00 PM EST Office Visit Hematology [place] [address] Markel Borjas MD [facility] DR [place] [address] 03/01/2025 4:15 PM EDT Office Visit Dermatology at [place] [address] [place] [address] Marek Bonilla MD [address], [place] [address] Scheduled Procedures Name Priority Associated Diagnoses Date/Ti me (OSC MSURG) BONE MARROW BIOPSY AND ASPIRATION; DIAGNOSTIC (WRVU 1.44) Anemia, in pt with longstanding neutropenia 06/05/2024 2:00 PM EST documented as of this encounter Visit Diagnoses Not on filedocumented in this encounter Care Teams Project Financial Analyst Relationship Specialty Start Date End Date Deborah Quiroga, ANURAG PCP - General Family Medicine 03/24/16 02/04/23 documented as of this encounter
--- OUTSIDE RECORDS SUMMARY | 2024-05-23 14:09 | XMS_ITS | Encounter Summary ---
[place] [address] Care Team Providers Care Machine Silver Stripper Name Role Phone Ashley Quirogan Cornelius ANURAG Primary Care Provider [phone] Reason for Visit * Reason Comments Acrochordon Rosacea Encounter Details Date Type Department Care Team (Late st Contact Info) Description 12/05/2020 3:00 PM EDT Office Visit Dermatology at [address] [address] Marek Bonilla MD [address] [facility], [place] [address] Inflamed acrochordon Social History Tobacco Use Types [...] month for repeat check. CC: Deborah Junaid PROMOTIONS SPECIALIST documented in this encounter Plan of Treatment Upcoming Encounters Date Type Department Care Team (Late st Contact Info) Description 06/05/2024 2:00 PM EST Hospital Encounter Outpatient [place] [address] Markel Borjas MD [facility] [address] [place] [address] 06/05/2024 2:00 PM EST - 06/05/2024 3:00 PM EST Surgery Outpatient [place] [address] Markel Borjas MD [facility] [address] [place] [address] (OSC MSURG) BONE MARROW BIOPSY AND ASPIRATION; DIAGNOSTIC (WRVU 1.44) 06/23/2024 2:00 PM EST Office Visit [place] [address] Markel Borjas MD [facility] [address] [place] [address] 03/01/2025 4:15 PM EDT Office Visit Dermatology at [place] [address] [place] [address] Marek Bonilla MD [address] [facility], [place] [address] Scheduled Procedures Name Priority Associated Diagnoses Date/Ti me (OSC MSURG) BONE MARROW BIOPSY AND ASPIRATION; DIAGNOSTIC (WRVU 1.44) Anemia, in pt with longstanding neutropenia 06/05/2024 2:00 PM EST documented as of this encounter Visit Diagnoses Diagnosis Inflamed acrochordon Unspecified hypertrophic and atrophic condition of skin documented in this encounter Care Teams Machine Silver Stripper Relationship Specialty Start Date End Date Deborah Quiroga, PROMOTIONS SPECIALIST PCP - General Family Medicine 03/24/16 02/04/23 documented as of this encounter
--- OUTSIDE RECORDS SUMMARY | 2024-05-23 14:09 | XMS_ITS | Encounter Summary ---
[place] [address] Care Team Providers Care Polarity Tester Name Role Phone JunaidDeborah APRN Primary Care Provider [phone] Reason for Visit * Reason Comments Follow-up Encounter Details Date Type Department Care Team (Late st Contact Info) Description 01/10/2021 4:30 PM EDT Office Visit Dermatology at [place] [address] [facility] [place] [address] Marek Bonilla MD [address] [facility], [place] [facility] DERMATOLOGY [place], [place] [address] Rosacea Social History Tobacco Use Types Packs/Day [...] cutaneous and ocular 2. Previously told by turntable engineer that she had corneal tears from [...] 3 refills. Will call this in her [facility] in [place] 3. Continue metronidazole 0.75% gel applying once [...] PM EST Hospital Encounter [place] [address] Markel Borjas MD [facility] [address] HEMATOLOGY [place] [address] 06/05/2024 2:00 PM EST - 06/05/2024 3:00 PM EST Surgery [place] [address] Markel Borjas MD [facility] DR HEMATOLOGY [place] [address] (OSC MSURG) BONE MARROW BIOPSY AND ASPIRATION; DIAGNOSTIC (WRVU 1.44) 06/23/2024 2:00 PM EST Office Visit Hematology [place] [address] Markel Borjas MD [facility] DR HEMATOLOGY [place] [address] 03/01/2025 4:15 PM EDT Office Visit Dermatology at [place] [address] [place] [address] Marek Bonilla MD [address], [place] [address] Scheduled Procedures Name Priority Associated Diagnoses Date/Ti me (OSC MSURG) BONE MARROW BIOPSY AND ASPIRATION; DIAGNOSTIC (WRVU 1.44) Anemia, in pt with longstanding neutropenia 06/05/2024 2:00 PM EST documented as of this encounter Visit Diagnoses Diagnosis Rosacea documented in this encounter Care Teams Polarity Tester Relationship Specialty Start Date End Date Deborah Quiroga, CALIBRATION TECHNICIAN PCP - General Family Medicine 03/24/16 02/04/23 documented as of this encounter
--- OUTSIDE RECORDS SUMMARY | 2024-05-23 14:09 | XMS_ITS | Encounter Summary ---
Author Organization [facility] Erika lópez[place] [address] Care Team Providers Care Convertible Sofa Bedspring Tester Name Role Phone Deborah Quiroga Sylvia OSBORN Primary Care Provider [phone] Encounter Details Date Type Department Care Team (Late st Contact Info) Description 11/11/2020 Refill Dermatology at [address] [address] Taylor Malone, CREW CAR DRIVER Social History Tobacco Use Types Packs/Day Years [...] PM EST Hospital Encounter Outpatient [place] [address] Markel Borjas MD [facility] H[place]ATOLOG[place] [address] 06/05/2024 2:00 PM EST - 06/05/2024 3:00 PM EST Surgery [place]patient [place] [address] Markel Borjas MD [facility] DR HEMAT[place] [address] (OSC MSURG) BONE MARROW BIOPSY AND ASPIRATION; DIAGNOSTIC (WRVU 1.44) 06/23/2024 2:00 PM EST Office Visit [place] [address] Markel Borjas MD [facility] DR [place] [address] 03/01/2025 4:15 PM EDT Office Visit Dermatology at [place] [address] [facility] [address] Marek Bonilla MD [address] [facility] [address], [place] [address] Scheduled Procedures Name Priority Associated Diagnoses Date/Ti me (OSC MSURG) BONE MARROW BIOPSY AND ASPIRATION; DIAGNOSTIC (WRVU 1.44) Anemia, in pt with longstanding neutropenia 06/05/2024 2:00 PM EST documented as of this encounter Visit Diagnoses Not on filedocumented in this encounter Care Teams Convertible Sofa Bedspring Tester Relationship Specialty Start Date End Date Deborah Quiroga APRN PCP - General Family Medicine 03/24/16 02/04/23 documented as of this encounter
--- OUTSIDE RECORDS SUMMARY | 2024-05-23 14:09 | XMS_ITS | Encounter Summary ---
Author Organization [facility] [place] [address] Care Team Providers Care Lofter Name Role Phone Deborah Quiroga APRN Primary Care Provider [phone] Encounter Details Date Type Department Care Team (Late st Contact Info) Description 06/05/2021 Interpretation Only [address] [address] Deborah Quiroga APRN [address] [phone] Social History Tobacco Use Types Packs/Day Years [...] PM EST Hospital Encounter Outpatient [place] [address] Markel Borjas MD [facility] [address] [place] [address] 06/05/2024 2:00 PM EST - 06/05/2024 3:00 PM EST Surgery [place]patient [place] [address] Markel Borjas MD [facility] DR [place] [address] (OSC MSURG) BONE MARROW BIOPSY AND ASPIRATION; DIAGNOSTIC (WRVU 1.44) 06/23/2024 2:00 PM EST Office Visit [place] [address] Markel Borjas MD [facility] [address] [place] [address] 03/01/2025 4:15 PM EDT Office Visit Dermatology at [place] [address] [place] [address] Marek Bonilla MD [address], [place] [address] Scheduled Procedures Name Priority Associated Diagnoses Date/Ti [...] O RAD ADMITDTTM RAD PT RAD INFO [id number]^E VERETT^DEBORAH ^E RAD EXAM DESC XDXAC^DEXA SCAN [...] have questions please contact the health career representative that requested your imaging first. ? Electronically signed by: Rocael Villatoro MD, [facility] ([phone]), at 06/05/2021 12:00 PM Narrative 06/05/2021 12:00 [...] who have questions please contactthe health career representative that requested your imaging first. Deborah E Junaid SLOT FLOORPERSON IMGerman DEXA ORDERABLES documented in this encounter Visit Diagnoses Not on filedocumented in this encounter Care Teams Lofter Relationship Specialty Start Date End Date Deborah Quiroga APRN PCP - General Family Medicine 03/24/16 02/04/23 documented as of this encounter
--- OUTSIDE RECORDS SUMMARY | 2024-05-23 14:09 | XMS_ITS | Encounter Summary ---
[place] [address] Care Team Providers Care Cell Tester Name Role Phone Ashley Quirogan Cornelius ANURAG Primary Care Provider [phone] Reason for Visit * Reason Comments Skin Check Encounter Details Date Type Department Care Team (Late st Contact Info) Description 11/11/2020 10:45 AM EDT Office Visit Dermatology at [address] [place] [address] Marek Bonilla MD [address] [facility], [place] A DERMATOLOGY [place], [place] [address] Rosacea; Acrochordon Social History Tobacco Use Types [...] Discussed the possibility of getting this through [facility] or from the [facility] pharmacy if necessary. She has not yet [...] PM EST Hospital Encounter Outpatient [place] [address] Markel Borjas MD [facility] DR [place] [address] 06/05/2024 2:00 PM EST - 06/05/2024 3:00 PM EST Surgery Outpatient [place] [address] Markel Borjas MD [facility] [place]OLOG[place] [address] (OSC MSURG) BONE MARROW BIOPSY AND ASPIRATION; DIAGNOSTIC (WRVU 1.44) 06/23/2024 2:00 PM EST Office Visit [place]ology [place] [address] Markel Borjas MD [facility] DR [place] [address] 03/01/2025 4:15 PM EDT Office Visit Dermatology at [place] [address] [place] [address] Marek Bonilla MD [address], [address] [place] [address] Scheduled Procedures Name Priority Associated Diagnoses Date/Ti me (OSC MSURG) BONE MARROW BIOPSY AND ASPIRATION; DIAGNOSTIC (WRVU 1.44) Anemia, in pt with longstanding neutropenia 06/05/2024 2:00 PM EST documented as of this encounter Visit Diagnoses Diagnosis Rosacea Acrochordon Unspecified hypertrophic and atrophic condition of skin documented in this encounter Care Teams Cell Tester Relationship Specialty Start Date End Date Deborah Quiroga APRN PCP - General Family Medicine 03/24/16 02/04/23 documented as of this encounter
--- OUTSIDE RECORDS SUMMARY | 2024-05-23 14:09 | XMS_ITS | Encounter Summary ---
Author Organization [facility] [place] [address] Care Team Providers Care Licensed Certified Orthotist Name Role Phone Ashley Quirogazac Shields APRN Primary Care Provider [phone] Encounter Details Date Type Department Care Team (Late st Contact Info) Description 02/06/2020 Orders Only Hematology [place] [address] Markel Borjas MD [facility] DR [place]Y [place] [address] Neutropenia, unspecified type Social History Tobacco Use [...] PM EST Hospital Encounter Outpatient [place] [address] Markel Borjas MD [facility] [address] [place] [address] 06/05/2024 2:00 PM EST - 06/05/2024 3:00 PM EST Surgery Outpatient [place] [address] Markel Borjas MD [facility] DR [place] [address] (OSC MSURG) BONE MARROW BIOPSY AND ASPIRATION; DIAGNOSTIC (WRVU 1.44) 06/23/2024 2:00 PM EST Office Visit Hematology [place] [address] Markel Borjas MD [facility] DR [place] [address] 03/01/2025 4:15 PM EDT Office Visit Dermatology at [place] [address] [place] [address] Marek Bonilla MD [address], [place] [address] Scheduled Procedures Name Priority Associated Diagnoses Date/Ti me (OSC MSURG) BONE MARROW BIOPSY AND ASPIRATION; DIAGNOSTIC (WRVU 1.44) Anemia, in pt with longstanding neutropenia 06/05/2024 2:00 PM EST documented as of this encounter Visit Diagnoses Diagnosis Neutropenia, unspecified type documented in this encounter Care Teams Licensed Certified Orthotist Relationship Specialty Start Date End Date Deborah Quiroga APRN PCP - General Family Medicine 03/24/16 02/04/23 documented as of this encounter
--- OUTSIDE RECORDS SUMMARY | 2024-05-23 14:09 | XMS_ITS | Encounter Summary ---
Author Organization [facility] Erika lópezsyl[place] [address] Care Team Providers Care Media Sales Consultant Name Role Phone Deborah Quiroga Sylvia OSBORN Primary Care Provider [phone] Encounter Details Date Type Department Care Team (Late st Contact Info) Description 01/13/2021 Refill Dermatology at [address] [address] Taylor Malone, CARPENTERS SUPERVISOR Social History Tobacco Use Types Packs/Day [...] PM EST Hospital Encounter Outpatient [place] [address] Markel Borjas MD [facility] HEMATOLOGY [place] [address] 06/05/2024 2:00 PM EST - 06/05/2024 3:00 PM EST Surgery Outpatient [place] [address] Markel Borjas MD [facility] DR HEMATOLOGY [place] [address] (OSC MSURG) BONE MARROW BIOPSY AND ASPIRATION; DIAGNOSTIC (WRVU 1.44) 06/23/2024 2:00 PM EST Office Visit Hematology [place] [address] Markel Borjas MD [facility] DR HEMATOLOGY [place] [address] 03/01/2025 4:15 PM EDT Office Visit Dermatology at [place] [address] [facility] [place] [address] Marek Bonilla MD [address], [place] [address] Scheduled Procedures Name Priority Associated Diagnoses Date/Ti me (OSC MSURG) BONE MARROW BIOPSY AND ASPIRATION; DIAGNOSTIC (WRVU 1.44) Anemia, in pt with longstanding neutropenia 06/05/2024 2:00 PM EST documented as of this encounter Visit Diagnoses Not on filedocumented in this encounter Care Teams Media Sales Consultant Relationship Specialty Start Date End Date Deborah Quiroga APRN PCP - General Family Medicine 03/24/16 02/04/23 documented as of this encounter
--- OUTSIDE RECORDS SUMMARY | 2024-05-23 14:09 | XMS_ITS | Encounter Summary ---
[place] [address] Care Team Providers Care Financial Administrator Name Role Phone Ashley Quirogan Cornelius ANURAG Primary Care Provider [phone] Reason for Visit * Reason Onset Date Comments Results 12/03/2016 Encounter Details Date Type Department Care Team (Late st Contact Info) Description 12/03/2016 Telephone Hematology [place] [address] Yudith Valentine RN Results Social [...] full results to this office for clinical nurse reviewer notified DR Borjas of above results documented in this encounter Plan of Treatment Upcoming Encounters Date Type Department Care Team (Late st Contact Info) Description 06/05/2024 2:00 PM [facility] Hospital Encounter [place]patient [place] [address] Markel Borjas MD [facility] [address] HEMATOLOGY [place] [address] 06/05/2024 2:00 PM EST - 06/05/2024 3:00 PM EST Surgery [place]patient [place] [address] Markel Borjas MD [facility] [address] HEMATOLOGY [place] [address] (OSC MSURG) BONE MARROW BIOPSY AND ASPIRATION; DIAGNOSTIC (WRVU 1.44) 06/23/2024 2:00 PM EST Office Visit [place]ematology [place] [address] Markel Borjas MD [facility] [address] HEMATOLOGY [place] [address] 03/01/2025 4:15 PM EDT Office Visit Dermatology at [place] [address] [facility] [place] [address] Marek Bonilla MD [address], [place] [address] Scheduled Procedures Name Priority Associated Diagnoses Date/Ti me (OSC MSURG) BONE MARROW BIOPSY AND ASPIRATION; DIAGNOSTIC (WRVU 1.44) Anemia, in pt with longstanding neutropenia 06/05/2024 2:00 PM EST documented as of this encounter Visit Diagnoses Not on filedocumented in this encounter Care Teams Financial Administrator Relationship Specialty Start Date End Date Deborah Quiroga APRN PCP - General Family Medicine 03/24/16 02/04/23 documented as of this encounter
--- OUTSIDE RECORDS SUMMARY | 2024-05-23 14:09 | XMS_ITS | Encounter Summary ---
Author Organization [facility] [place] [address] Care Team Providers Care Nascar Racer Name Role Phone Deborah Quiroga ANURAG Primary Care Provider [phone] Encounter Details Date Type Department Care Team (Late st Contact Info) Description 06/18/2017 External Results Hematology [place] [address] Alexandrea Greenwood RN Neutropenia, unspecified type Social [...] PM EST Hospital Encounter Outpatient [place] [address] Markel Borjas MD [facility] DR HEMATOLOG[place] [address] 06/05/2024 2:00 PM EST - 06/05/2024 3:00 PM EST Surgery [place]patient [place] [address] Markel Borjas MD [facility] DR HEMATOLOG[place] [address] (OSC MSURG) BONE MARROW BIOPSY AND ASPIRATION; DIAGNOSTIC (WRVU 1.44) 06/23/2024 2:00 PM EST Office Visit Hematology and Oncology at [facility] [place] [address] Markel Borjas MD [facility] DR HEMATOLOG[place] [address] 03/01/2025 4:15 PM EDT Office Visit Dermatology at [place] [address] [place] [address] Marek Bonilla MD [address], [place] [address] Scheduled Procedures Name Priority Associated Diagnoses Date/Ti [...] MD CHEMISTRY ORDERABL ES Performing Organization Address City/[facility]/ZIP Co de Phone Number EXTERNAL [...] HEMATOLOGY ORDERAB LES Performing Organization Address [facility] Co de Phone Number EXTERNAL LAB documented in this encounter Visit Diagnoses Diagnosis Neutropenia, unspecified type documented in this encounter Care Teams Nascar Racer Relationship Specialty Start Date End Date Deborah Quiroga APRN PCP - General Family Medicine 03/24/16 02/04/23 documented as of this encounter
--- OUTSIDE RECORDS SUMMARY | 2024-05-23 14:09 | XMS_ITS | Encounter Summary ---
Author Organization [facility] Address [facility] [place] [address] Care Team Providers Care Barback Name Role Phone Junaid Deborah Shields APRN Primary Care Provider [phone] Reason for Visit * Reason Comments Schedule Office Case Pain right leg Encounter Details Date Type Department Care Team (Late st Contact Info) Description 12/11/2016 9:00 AM EDT Office Visit Hematology [place] [address] Markel Borjas MD [facility] [address] [place] [address] Neutropenia, unspecified type Social History Tobacco Use [...] 12/11/2016 9:00 AM EDT Hematology Outpatient Clinic [facility] Hematology Outpatient Consult Note CC: 60 [...] TOUCH PREP, CLOT SECTION, CORE ??BIOPSY); [OSR# [id number], COLLECTED 06/23/2016, 19 SLIDES]: ?1. 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 Extremities: No edema. Labs: Hgb= 13 Kkdj=579 ANC= 0.5 Imaging As above - reviewed [...] PM EST Hospital Encounter [place] [address] Markel Borjas MD [facility] DR [place] [address] 06/05/2024 2:00 PM EST - 06/05/2024 3:00 PM EST Surgery [place] [address] Markel Borjas MD [facility] DR [place] [address] (OSC MSURG) BONE MARROW BIOPSY AND ASPIRATION; DIAGNOSTIC (WRVU 1.44) 06/23/2024 2:00 PM EST Office Visit Hematology [place] [address] Markel Borjas MD [facility] DR [place] [address] 03/01/2025 4:15 PM EDT Office Visit Dermatology at [place] [address] [facility] [place] [address] Marek Bonilla MD [address], [place] [address] Scheduled Procedures Name Priority Associated Diagnoses Date/Ti [...] type documented in this encounter Care Teams Barback Relationship Specialty Start Date End Date Deborah Quiroga APRN PCP - General Family Medicine 03/24/16 02/04/23 documented as of this encounter
--- OUTSIDE RECORDS SUMMARY | 2024-05-23 14:09 | XMS_ITS | Encounter Summary ---
Author Organization [facility] Address [facility] [place] [address] Care Team Providers Care Hot Billet Shear Operator Name Role Phone Deborah Quiroga APRN Primary Care Provider [phone] Encounter Details Date Type Department Care Team (Late st Contact Info) Description 06/18/2017 11:00 AM EST Office Visit Hematology [place] [address] Markel Borjas MD [facility] [place] [address] Neutropenia, unspecified type Social History Tobacco Use [...] 06/18/2017 11:00 AM EST Hematology Outpatient [facility] Hematology Outpatient Consult Note CC: 60 [...] TOUCH PREP, CLOT SECTION, CORE ??BIOPSY); [OSR# [id number], COLLECTED 06/23/2016, 19 SLIDES]: ?1. ??Normocellular marrow [...] a clonal lymphoproliferative or myeloproliferative disorder (OSR# [id number]) Chromosome analysis on the marrow aspirate revealed [...] working the same job and participating in [employer] patients. Past Medical/Surgical History: 1. Leukopenia -element of neutropenia, as noted above 2. Aortic Stenosis -severe -AVR surgery 3. Hypercholesterolemia 4. Depression 5. Hypertension 6. 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 Extremities: No edema. Labs: Hgb= 13 Dsej=607 ANC= 0.6 Imaging As above - reviewed [...] PM EST Hospital Encounter Outpatient [place] [address] Markel Borjas MD [facility] [place] [address] 06/05/2024 2:00 PM EST - 06/05/2024 3:00 PM EST Surgery [place] [address] Markel Borjas MD [facility] [place] [address] (OSC MSURG) BONE MARROW BIOPSY AND ASPIRATION; DIAGNOSTIC (WRVU 1.44) 06/23/2024 2:00 PM EST Office Visit [place]ematology [place] [address] Markel Borjas MD [facility] [place] [address] 03/01/2025 4:15 PM EDT Office Visit Dermatology at [place] [address] [place] [address] Marek Bonilla MD [address], [place] [address] Scheduled Procedures Name Priority Associated Diagnoses Date/Ti me (OSC MSURG) BONE MARROW BIOPSY AND ASPIRATION; DIAGNOSTIC (WRVU 1.44) Anemia, in pt with longstanding neutropenia 06/05/2024 2:00 PM EST documented as of this encounter Visit Diagnoses Diagnosis Neutropenia, unspecified type documented in this encounter Care Teams Hot Billet Shear Operator Relationship Specialty Start Date End Date Deborah Quiroga, ANURAG PCP - General Family Medicine 03/24/16 02/04/23 documented as of this encounter
--- OUTSIDE RECORDS SUMMARY | 2024-05-23 14:09 | XMS_ITS | Encounter Summary ---
Author Organization [facility] Address [facility] [place] [address] Care Team Providers Care Plant Tender Name Role Phone Deborah Quiroga APRN Primary Care Provider [phone] Encounter Details Date Type Department Care Team (Latest Contact Info) Description 10/14/2016 - 10/14/2016 11:59 PM EDT Hospital Encounter Radiology Library at [facility] [place] [phone] Alirio Esparza MD Pain Discharge Disposition: Home [...] PM EST Hospital Encounter [place] [address] Markel Borjas MD [facility] DR [place] [address] 06/05/2024 2:00 PM EST - 06/05/2024 3:00 PM EST Surgery [place] [address] Markel Borjas MD [facility] DR [place]OLOG[place] [address] (OSC MSURG) BONE MARROW BIOPSY AND ASPIRATION; DIAGNOSTIC (WRVU 1.44) 06/23/2024 2:00 PM EST Office Visit Hematology [place] [address] Markel Borjas MD [facility] [place]OLOG[place] [address] 03/01/2025 4:15 PM EDT Office Visit Dermatology at [address] [address] Marek Bonilla MD [address], [place] [address] Scheduled Procedures Name Priority Associated Diagnoses Date/Ti [...] 12:00 AM EDT) Narrative [facility] - 10/14/2016 5:16 PM EDT This exam is for storage only and is auto-finalizing. Alirio Esparza MD IMG FILM LIBRARY OR DERABLES Performing Organization Address City/State/[facility] Co de Phone Number [place], [place] documented in this encounter Visit Diagnoses Diagnosis Pain Generalized pain documented in this encounter Care Teams Plant Tender Relationship Specialty Start Date End Date Deborah Quiroga APRN PCP - General Family Medicine 03/24/16 02/04/23 documented as of this encounter
--- OUTSIDE RECORDS SUMMARY | 2024-05-23 14:09 | XMS_ITS | Encounter Summary ---
Author Organization [facility] [place] [address] Care Team Providers Care Double Back Operator Name Role Phone Deborah Quiroga APRN Primary Care Provider [phone] Encounter Details Date Type Department Care Team (Late st Contact Info) Description 03/04/2020 External Results [place]ematology [place] [phone] TherBhumi villela Social History Tobacco Use Types [...] PM EST Hospital Encounter [place]patient [place] [address] [facility] [address] HEMATOLOGY [place] [address] 06/05/2024 2:00 PM EST - 06/05/2024 3:00 PM EST Surgery [place] [address] Markel Borjas MD [facility] DR HEMATOLOGY [place] [address] (OSC MSURG) BONE MARROW BIOPSY AND ASPIRATION; DIAGNOSTIC (WRVU 1.44) 06/23/2024 2:00 PM EST Office Visit Hematology and Oncology at [facility] [place] [address] [facility] [address] HEMATOLOGY [place] [address] 03/01/2025 4:15 PM EDT Office Visit Dermatology at [place] [address] [place] [address] Marek Bonilla MD [address], [place] [address] Scheduled Procedures Name Priority Associated Diagnoses Date/Ti [...] on filedocumented in this encounter Care Teams Double Back Operator Relationship Specialty Start Date End Date Deborah Quiroga APRN PCP - General Family Medicine 03/24/16 02/04/23 documented as of this encounter
--- OUTSIDE RECORDS SUMMARY | 2024-05-23 14:09 | XMS_ITS | Encounter Summary ---
Author Organization [facility] [place] [address] Care Team Providers Care Cash Posting Specialist Name Role Phone Ashley Quirogan Sylvia ANURAG Primary Care Provider [phone] Encounter Details Date Type Department Care Team (Late st Contact Info) Description 12/04/2016 External Results Hematology [place] [phone] Teresa Dodson RN Social History Tobacco Use [...] PM EST Hospital Encounter [place]patient [place] [address] Markel Borjas MD [facility] [place] [address] 06/05/2024 2:00 PM EST - 06/05/2024 3:00 PM EST Surgery [place] [address] Markel Borjas MD [facility] DR [place] [address] (OSC MSURG) BONE MARROW BIOPSY AND ASPIRATION; DIAGNOSTIC (WRVU 1.44) 06/23/2024 2:00 PM EST Office Visit Hematology [place] [address] Markel Borjas MD [facility] DR [place] [address] 03/01/2025 4:15 PM EDT Office Visit Dermatology at [place] [address] [place] [address] Marek Bonilla MD [address], [place] [address] Scheduled Procedures Name Priority Associated Diagnoses Date/Ti [...] panel (non-fasting) (12/03/2016 11:35 AM EDT) Glucose 85(Insurance Commissioner al Lab) Blood Urea Nitrogen 11(Insurance Commissioner al Lab) Creatinine 0.93(Exte rnal Lab) Sodium 140(Exter nal Lab) Potassium 4.2(Exter nal Lab) Chloride 104(Exter nal Lab) Calcium 10.0(Exte rnal Lab) Protein, Total 8.1(Exter nal Lab) Albumin 3.5(Exter nal Lab) Bilirubin, Total 0.25(Exte rnal Lab) Alkaline Phosphatase 96(Insurance Commissioner al Lab) Aspartate Aminotransferase 18(Insurance Commissioner al Lab) Alanine Aminotransferase 21(Insurance Commissioner al Lab) Blood specimen (specimen) 12/03/2016 11:35 AM EDT Historical Provider CHEMISTRY ORDERAB LES * (ABNORMAL) CBC (with Diff) (12/03/2016 11:35 AM EDT) White Blood Cell 1.61(EXTER NAL/ABN) 4.4 - 10.8 Hemoglobin 13.0(Exter nal Lab) Hematocrit 39.8(Exter nal Lab) Platelet 248(Insurance Commissioner al Lab) Neutrophil Absolute (ANC) - Automated 0.5(STRINGED INSTRUMENT ASSEMBLER AL/ABN) Blood specimen (specimen) 12/03/2016 11:35 AM EDT Historical Provider HEMATOLOGY ORDERA BLES documented in this encounter Visit Diagnoses Not on filedocumented in this encounter Care Teams Cash Posting Specialist Relationship Specialty Start Date End Date Deborah Quiroga APRN PCP - General Family Medicine 03/24/16 02/04/23 documented as of this encounter
--- OUTSIDE RECORDS SUMMARY | 2024-05-23 14:09 | XMS_ITS | Encounter Summary ---
[place] [address] Care Team Providers Care Ambulatory Nurse Name Role Phone Junaid Deborah Shields APRN Primary Care Provider [phone] Reason for Visit * Reason Comments Annual Exam Encounter Details Date Type Department Care Team (Late st Contact Info) Description 01/09/2022 3:15 PM EDT Office Visit Dermatology at [address] [phone] Marek Bonilla MD [address] DERMATOLOG[place], [place] [phone] Rosacea Social History Tobacco Use Types Packs/Day [...] cutaneous and ocular 2. Previously told by section beamer that she had corneal tears from her [...] refills. We will call this into her [facility] in [place] 3. Continue metronidazole 0.75% gel applying every [...] PM EST Hospital Encounter Outpatient [place] [address] Markel Borjas MD [facility] HEMATOLOGY [place] [address] 06/05/2024 2:00 PM EST - 06/05/2024 3:00 PM EST Surgery Outpatient [place] [address] Markel Borjas MD [facility] HEMATOLOGY [place] [address] (OSC MSURG) BONE MARROW BIOPSY AND ASPIRATION; DIAGNOSTIC (WRVU 1.44) 06/23/2024 2:00 PM EST Office Visit Hematology [place] [address] Markel Borjas MD [facility] DR HEMATOLOGY [place] [address] 03/01/2025 4:15 PM EDT Office Visit Dermatology at [place] [address] [place] [address] Marek Bonilla MD [address], [place] [place] [address] Scheduled Procedures Name Priority Associated Diagnoses Date/Ti me (OSC MSURG) BONE MARROW BIOPSY AND ASPIRATION; DIAGNOSTIC (WRVU 1.44) Anemia, in pt with longstanding neutropenia 06/05/2024 2:00 PM EST documented as of this encounter Visit Diagnoses Diagnosis Rosacea documented in this encounter Care Teams Ambulatory Nurse Relationship Specialty Start Date End Date Deborah Quiroga APRN PCP - General Family Medicine 03/24/16 02/04/23 documented as of this encounter
--- OUTSIDE RECORDS SUMMARY | 2024-05-23 14:09 | XMS_ITS | Encounter Summary ---
Author Organization [facility] [place] [address] Care Team Providers Care Garbage Stoker Name Role Phone Winter Quiroga APRN Primary Care Provider [phone] Encounter Details Date Type Department Care Team (Late st Contact Info) Description 06/05/2021 Interpretation Only [address] [phone] Winter Quiroga APRN [address] [phone] Social History Tobacco Use Types Packs/Day Years [...] PM EST Hospital Encounter [place] [address] Markel Borjas MD [facility] DR [place] [address] 06/05/2024 2:00 PM EST - 06/05/2024 3:00 PM EST Surgery [place] [address] Markel Borjas MD [facility] [address] [place] [address] (OSC MSURG) BONE MARROW BIOPSY AND ASPIRATION; DIAGNOSTIC (WRVU 1.44) 06/23/2024 2:00 PM EST Office Visit Hematology [place] [address] Markel Borjas MD [facility] [address] [place] [address] 03/01/2025 4:15 PM EDT Office Visit Dermatology at [place] [address] [place] [address] Marek Bonilla MD [address], [place] [address] Scheduled Procedures Name Priority Associated Diagnoses Date/Ti [...] RAD ADMITDTTM DH RAD PT RAD INFO [id number]^EVERET T^WINTER^E DH RAD EXAM DESC MADDSCTO^BREAST SCREEN [...] have questions please contact the health healthcare consultant that requested your imaging first. ? Electronically signed by: Rocael Villatoro MD, [facility] ([phone]), at 06/05/2021 1:27 PM Narrative 06/05/2021 1:27 [...] who have questions please contactthe health healthcare consultant that requested your imaging first. Electronically signed by: Rocael Villatoro MD, [facility]([phone]), at 06/05/2021 1:27 PM Winter Quiroga APRN IMG MAMMO ORDERABLE S documented in this encounter Visit Diagnoses Not on filedocumented in this encounter Care Teams Garbage Stoker Relationship Specialty Start Date End Date Winter Quiroga, DINING HOST PCP - General Family Medicine 03/24/16 02/04/23 documented as of this encounter
--- OUTSIDE RECORDS SUMMARY | 2024-05-23 14:09 | XMS_ITS | Encounter Summary ---
Author Organization [facility] Address [facility] [place] [address] Care Team Providers Care Builder'S Labourer Name Role Phone Deborah Quiroga APRN Primary Care Provider [phone] Encounter Details Date Type Department Care Team (Late st Contact Info) Description 03/01/2020 11:30 AM EDT Office Visit Hematology [place] [phone] Patrick Borjas MD [facility] DR HEMATOLOGY [place] [address] Neutropenia, unspecified type Social History Tobacco Use [...] 03/01/2020 11:30 AM EDT Hematology Outpatient Clinic [facility] Hematology Outpatient Consult Note CC: 60 year [...] TOUCH PREP, CLOT SECTION, CORE ??BIOPSY); [OSR# [id number], COLLECTED 06/23/2016, 19 SLIDES]: ?1. 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 Extremities: No edema. Labs: Hgb= 12.4 Waqr=996 ANC= 2.5 Imaging As above - reviewed [...] PM EST Hospital Encounter Outpatient [place] [address] Patrick Borjas MD [facility] DR HEMATOLOGY [place] [address] 06/05/2024 2:00 PM EST - 06/05/2024 3:00 PM EST Surgery Outpatient [place] [address] Patrick Borjas MD [facility] DR HEMATOLOGY [place] [address] (OSC MSURG) BONE MARROW BIOPSY AND ASPIRATION; DIAGNOSTIC (WRVU 1.44) 06/23/2024 2:00 PM EST Office Visit [place]ematology [place] [address] Patrick Borjas MD [facility] DR HEMATOLOGY [place] [address] 03/01/2025 4:15 PM EDT Office Visit Dermatology at [place] [address] [place] [address] Marek Bonilla MD [address], [place] [address] Scheduled Procedures Name Priority Associated Diagnoses Date/Ti me ([facility] MSURG) BONE MARROW BIOPSY AND ASPIRATION; DIAGNOSTIC (WRVU 1.44) Anemia, in pt with longstanding neutropenia 06/05/2024 2:00 PM EST documented as of this encounter Visit Diagnoses Diagnosis Neutropenia, unspecified type documented in this encounter Care Teams Builder'S Labourer Relationship Specialty Start Date End Date Deborah Quiroga, WIRE PREPARATION MACHINE TENDER PCP - General Family Medicine 03/24/16 02/04/23 documented as of this encounter
--- OUTSIDE RECORDS SUMMARY | 2024-05-23 14:09 | XMS_ITS | Encounter Summary ---
Author Organization [facility] [place] [address] Care Team Providers Care Optical Technician Name Role Phone Winter Quiroga APRN Primary Care Provider [phone] Encounter Details Date Type Department Care Team (Late st Contact Info) Description 06/05/2021 Interpretation Only [address] [address] Winter Quiroga APRN [address] [phone] Social History Tobacco Use Types Packs/Day Years [...] PM EST Hospital Encounter Outpatient [place] [address] Markel Borjas MD [facility] DR [place] [address] 06/05/2024 2:00 PM EST - 06/05/2024 3:00 PM EST Surgery Outpatient [place] [address] Markel Borjas MD [facility] [address] [place] [address] (OSC MSURG) BONE MARROW BIOPSY AND ASPIRATION; DIAGNOSTIC (WRVU 1.44) 06/23/2024 2:00 PM EST Office Visit Hematology [place] [address] Markel Borjas MD [facility] [address] [place] [address] 03/01/2025 4:15 PM EDT Office Visit Dermatology at [place] [address] [place] [address] Marek Bonilla MD [address], [place] [address] Scheduled Procedures Name Priority Associated Diagnoses Date/Ti [...] DH RAD ADMITDTTM RAD PT RAD INFO [id number]^EV ERETT^WINTER^E RAD EXAM DESC MADDSC^SCREEN MAMMO BL [...] who have questions please contact the health transitions rn care coordinator that requested your imaging first. ? Electronically signed by: Rocael Villatoro MD, [facility] ([phone]), at 06/05/2021 1:27 PM Narrative 06/05/2021 1:27 [...] patients who have questions please contactthe health transitions rn care coordinator that requested your imaging first. Electronically signed by: Rocael Villatoro MD, [facility]([phone]), at 06/05/2021 1:27 PM Winter Quiroga BACKUP OPERATOR IMG MAMMO ORDERABLE S documented in this encounter Visit Diagnoses Not on filedocumented in this encounter Care Teams Optical Technician Relationship Specialty Start Date End Date Winter Quiroga APRN PCP - General Family Medicine 03/24/16 02/04/23 documented as of this encounter
--- OUTSIDE RECORDS SUMMARY | 2024-05-23 14:09 | XMS_ITS | Encounter Summary ---
Author Organization [facility] [place] [address] Care Team Providers Care Forestry Professor Name Role Phone Ashley Quirogazac Shields APRN Primary Care Provider [phone] Reason for Referral * Consultation (Routine) - Specialty Diagnoses / Procedures Referred By Contact Referred To Contact Cardiac Rehabilitation Diagnoses S/P AVR Alirio Esparza MD [facility] [place] [address] Cardiac Rehab, [address] [place] [address] Referral ID Status Reason Start Date Expiration Date V isits Requested Visits Authorized [id number] Consult, Test & Treat 09/25/2016 03/24/2017 36 36 Reason for Visit * Auth/Cert Specialty Diagnoses / Procedures Referred By Contkrystle t Referred To Contact Diagnoses Aortic stenosis Procedures PRO REPLACE AORT VALV, PROSTH VALV @REPLACE AORTIC VALVE, OPEN, W\CPB, W\PROSTHETIC VALVE (WRVU 41.32) Referral ID Status Reason Start Date Expiration Date Visits Re quested Visits Authorized [id number] 1 1 Encounter Details Date Type Department Care Team (Latest Contact Info) Description 09/21/2016 6:08 AM EST - 09/25/2016 4:33 PM EST Hospital Encounter Intermediate [place] [phone] Alirio Esparza MD Aortic valve stenosis, unspecified [...] Patient Age: 61 y.o. Birthdate: 1955 Language: Amharic Race: White Ethnicity: Not nor Admit Date: 09/21/2016 Discharge Date: 09/25/2016 Attending Physician: Alirio Esparza MD Follow-up Recommendations for Providers: Please continue routine management of cardiovascular risk factors including blood pressure, lipids,glucose, etc. Please note any changes to medications. Patient to follow-up with PCP, Deborah Quiroga APRN, in 1-2 weeks. Patient to follow-up with [facility], Dr. Antelmo Burrell, in two weeks. Patient to follow-up with Cardiac Surgery, Dr. Alirio Esparza, to be scheduled for before 10/19/2016, with CXR, EKG, and Echo. Inpatient Provider Contact Information: [facility] Section of Cardiac Surgery [facility] [address] FAX [phone] Discharge Diagnoses (Hospital Problems) Primary Diagnoses: Secondary [...] performed by Alirio Esparza MD at [facility] MAIN OR ??? Pro aortoplas for supravalv sten N/A 09/21/2016 @AORTOPLASTY FOR SUPRAVALVULAR STENOSIS (WRVU 29.33) performed by Alirio Esparza MD at [facility] MAIN OR Prior To Admission Medications Prescriptions [...] was admitted to [facility] on 09/21/2016 via the Same Day [...] Alirio Esparza and/or the Cardiac Surgery Physician Victim Witness Administrator Team may be reached at . Antibiotic prophylaxis: You will need to take antibiotics prior to many invasive tests and treatments, such as dental cleaning, which should be done every 6 months. Your primary care physician or your dentist can prescribe this medication. Please refer to the card with the [place] [employer] Guidelines for more information. You have been provided with 3 copies of this card. Keep one for your self. Give one to your primary care physician and one to your dentist. Please refer to the [place] [employer] Guidelines for more information. Good [...] Dr. Alirio Jones. You may use a Nixa Track or treadmill but avoid any pulling [...] a low fat, low cholesterol, [place] [employer] Diet. Driving: No driving until [...] Phase 2 Cardiac Rehabilitation at [facility]. The patient agrees to a referral to this program. The referral will be sent at discharge and the patient should be contacted by the program within 1- 2 weeks from discharge. Future Appointments and Orders Future Appointments Provider Department Dept Phone 11/20/2016 11:30 AM Markel Borjas MD [facility] [phone] Future Orders Complete By Expires Echocardiogram Transthoracic([facility]) [QCY808 Custom] 10/18/2016 (Approximate) 09/18/2017 Process Instructions: If the Echocardiogram is to be PERFORMED in a location other than [place]--STOP and order [id number], Echocardiogram South/External. Scheduling Instructions: Questions: Is a Bubble Study requested?: No Does the patient have Congenital Heart Disease?: No Does patient require sedation?: None GA rationale: Should this service be billed to the research sponsor?: EKG 12 Lead [EKG1 Custom] 10/18/2016 (Approximate) 09/25/2017 Process Instructions: Scheduling Instructions: Questions: Which location will this be performed?: [place] Is a rhythm strip needed?: No If EKG Reason is Pre-op Evaluation, indicate diagnosis for surgery.: Should this service be billed to the research sponsor?: XR Chest PA & Lateral (Generic) [[id number] Custom] 10/18/2016 (Approximate) 09/25/2017 Process Instructions: Scheduling Instructions: Questions: Where will study be performed?: [facility]- Radiology Portable exam?: No Reason for exam and clinical history: s/p AVReplacement, patch annuloplasty 1 month f/u Other pertinent information: Stat read required?: Date of injury if applicable: Requested Time: Referral to Cardiac Rehab [ILH983 Custom] As directed Process Instructions: If no progress note charted, please enter Clinical details in comments. Scheduling Instructions: Questions: My question or request is: s/p AVR. Cardiac rehab at [facility] Referral to Home Health - at DISCHARGE [JEX1212 CPT(R)] As directed Process Instructions: Scheduling Instructions: Comments: DOCUMENTATION FOR VNA SERVICES (INCLUDING THOSE PATIENTS WITH MEDICARE COVERAGE REQUIRING HOME VNA SERVICES AND/OR HOSPICE SERVICES) PATIENT'S LOCATION: Purnima Magalie Kirstie [address] [place] [phone] (home) No relevant phone numbers on file. Clerk Entry Level's Name: self In discussion with the attending physician, it is certified that this patient is under their care and that they, or a Nurse Practitioner, or Physician Victim Witness Administrator who is working directly with them, hada [...] for services as follows: HOME HEALTH AGENCY: [facility] PHONE: [phone] FAX: [phone] RN orders: Cardiopulmonary assessment, incisional assessment, assess [...] issues please call the Cardiac SurgeryOffice at [phone] FOR MEDICARE ONLY: In discussion with the [...] AFTER 09/30/16 Signed: Crispin Aranda PA-C 09/25/2016 [facility] Section of Cardiac Surgery [facility] [address] FAX [phone] Date: 09/25/2016 CC: ANURAG Alford Caryn E, APRN [address] [place] [address] documented in this encounter Discharge Instructions * [...] Alirio Esparza and/or the Cardiac Surgery Physician Victim Witness Administrator Team may be reached at . Antibiotic prophylaxis: You will need to take antibiotics prior to many invasive tests and treatments, such as dental cleaning, which should be done every 6 months. Your primary care physician or your dentist can prescribe this medication. Please refer to the card with the [place] Heart [employer] Guidelines for more information. You have been provided with 3 copies of this card. Keep one for your self. Give one to your primary care physician and one to your dentist. Please refer to the [place] [employer] Guidelines for more information. Good [...] Dr. Alirio Jones. You may use a Nixa Track or treadmill but avoid any pulling [...] a low fat, low cholesterol, [place] [employer] Diet. Driving: No driving until [...] Phase 2 Cardiac Rehabilitation at [facility]. The patient agrees to a referral [...] PM EST Cardiac Surgery Progress Note: ID: [id number] S/p AVR, patch aortoplasty POD#2. PMH of [...] Gas) No results found for: PHART, PO2ART, [id number] Assessment/Plan: TPW out this am. (+) BM. [...] Signed: Crispin Aranda PA-C 09/24/2016 Team pager: [phone]; [phone] after 5pm [facility] Section of Cardiac Surgery * Leonor Henson, INSTALL AND REPAIR TECHNICIAN - 09/23/2016 10:48 AM EST Cardiac Surgery Progress Note: ID: [id number] s/p AVR, patch aortoplasty POD#2. PMH of [...] Gas) No results found for: PHART, PO2ART, HIM2COX Assessment/Plan: s/p AVR, patch aortoplasty POD#2. PMH of Neutropenia, HLD, HTN, Depression, obesity, . Transferred from [facility] yesterday and doing well. Pathway. Will [...] Leonor Henson APRN [facility] Section of Cardiac Surgery Date: 09/23/2016 * Nico Palacios PA - 09/22/2016 9:56 AM EST Cardiac Surgery Progress Note: ID: [id number] s/p AVR, patch aortoplasty POD#1. PMH of [...] NT, ND, soft. Ext: Moves all extremities. Pollard, well perfused. Incisions: C/D/I Tubes/Lines/Drains: PIV, leanna, [...] Signed: EKATERINA KIM [facility] Section of Cardiac Surgery Date: 09/22/2016 [...] with outpatient services Lalitha Cohen SPTA Pager: [phone] Inpatient Physical Therapy Patient status, treatment interventions, and goals discussed with student. I am in agreement with all details and associated flowsheet rows as documented and was present for all aspects of the patient treatment session. Nerykatrina Jaramillo, [facility] Pager [phone] Problem: Acute Rehab Services Goal & Intervention Plan Goal: Bed Mobility Goal Stand Alone Therapy Goal Outcome: Ongoing (Interventions Implemented as Appropriate) 09/22/16 16109/25/16 09 Bed Mobility Goal Bed Mobility Goal, Time to Achieve 4 days -- Bed Mobility Goal, Activity Type scoot/bridge;supine to sit/sit to supine -- Bed Mobility Goal, Ashley Level independent -- Bed Mobility Goal, Additional [...] Achieve 4 days -- Gait Training Goal, Ashley Level independent -- Gait Training Goal, Distance [...] assist, home with home health Lalitha Cohen [facility] Pager: [phone] Inpatient Physical Therapy Patient status, treatment interventions, and goals discussed with student. I am in agreement with all details and associated flowsheet rows as documented and was present for all aspects of the patient treatment session. Nery Jaramillo, [facility] Pager [phone] Problem: Acute Rehab Services Goal & Intervention Plan Goal: Bed Mobility Goal Stand Alone Therapy Goal Outcome: Ongoing (Interventions Implemented as Appropriate) 09/22/16 16109/23/16 1412 Bed Mobility Goal Bed Mobility Goal, Time to Achieve 4 days -- Bed Mobility Goal, Activity Type scoot/bridge;supine to sit/sit to supine -- Bed Mobility Goal, Ashley Level independent -- Bed Mobility Goal, Additional [...] Achieve 4 days -- Gait Training Goal, Ashley Level independent -- Gait Training Goal, Distance [...] days -- Transfer Training Goal, Activity Type mbp-xg-sagyh/afmwc-dv-wkw;gty-ft-xntjy/rkfhh-cg-ofq -- Transfer Train Goal, Ashley Level independent -- Transfer Training Goal, Additional Goal abides sternal precautions -- Transfer Training Goal, Outcome -- goal met * Consult Note - Jana Crenshaw RN - 09/23/2016 9:41 AM EST [facility] CARDIAC REH[facility]ILITATION Purnima Thacker was seen today regarding participation in the outpatient Phase 2 Cardiac Rehabilitation at [facility]. The patient agrees to a referral [...] with sediment and patient c/o discomfort with la. Catheter and wally area cleaned thoroughly. Will [...] Another Service: (cardiac rehab) NICOLE HERNANDEZ, PT Pager:[phone] Inpatient Physical Therapy Problem: Acute Rehab Services Goal & Intervention Plan Goal: Bed Mobility Goal Stand Alone Therapy Goal Outcome: Ongoing (Interventions Implemented as Appropriate) 09/22/16 1611 Bed Mobility Goal Bed Mobility Goal, Time to Achieve 4 days Bed Mobility Goal, Activity Type scoot/bridge;supine to sit/sit to supine Bed Mobility Goal, Ashley Level independent Bed Mobility Goal, Additional Goal able to abide sternal precautions during transfers Goal: Gait Training Goal Stand Alone Therapy Goal Outcome: Ongoing (Interventions Implemented as Appropriate) 09/22/16 1611 Gait Training Goal Gait Training Goal, Date Established 09/22/16 Gait Training Goal, Time to Achieve 4 days Gait Training Goal, Ashley Level independent Gait Training Goal, Distance to Achieve ascend and descends 2 steps independently Goal: Goal Transfer Training Stand Alone Therapy Goal Outcome: Ongoing (Interventions Implemented as Appropriate) 09/22/16 1611 Goal Transfer Training Transfer Training Goal, Time to Achieve 4 days Transfer Training Goal, Activity Type ecb-lz-felch/vdtbk-kz-wmu;pmy-cs-niwxz/awbsy-xo-dgn Transfer Train Goal, Ashley Level independent Transfer Training Goal, Additional Goal [...] of completing AD's at home, chooses her jtioys-zo-dmz, Martha Thacker (home) for her [facility], 2nd choice in friend, Nitesh Leroy [place], [place] Current Coping/Education/Information Needs: patient sitting up [...] who live close by, [place], and her wusxsk-li-bnn Martha Thacker who she has chosen to be her DPOAH. Also has a friend Nitesh Leroy who lives in [place], [place], also her DPOAH choice. Behavioral Health History: none on file in [facility] Substance Use/Abuse: none on file in [facility] Other Pertinent/Service Specific Information: none Health/Prescription Coverage: Primary Insurance: [employer] Secondary Insurance: none Prescription Coverage: yes, per patient no issues Preferred Pharmacy: ?? Other: none Primary Care Provider: Deborah Quiroga, INSTALL AND REPAIR TECHNICIAN [phone] Patient/Caregiver Goals of Treatment: per medical team recommendations at discharge for CT surgery Potential Needs for Transition of Care: Rehab/SNF: TBD Home Health: TBD DME: no Dialysis: no Community Resources: non3 Transportation: ride home with a friend Other: none Anticipated Barriers to Discharge/Special Considerations: none anticipated at this time Plan: patient will need VNA services at discharge. The patient/medical service representative has been provided a list of Home Health Agencies/DME vendors which servetheir preferred geographic area. A letter describing our affiliations was reviewed with them and they were educated about their right to choose where referrals are placed. Patient requests referral to: [facility]. PHONE: [phone] FAX: [phone] Expected date of discharge: Fri/Sat? CM called VNA to confirm referral, talked with VALDO Bunn/intake who stated she was familiar w/patient & would monitor her progress through curaspan. Referral routed to the Lockstitch Tunnel Elastic Operator for matching with agency/vendor and to provide any required information. A member of the Care Management team will continue to monitor progress, follow for continuity of care and assist with transition of care planning. Amanda Moreno RN Pager: [phone] * Op Note - Alirio Esparza MD - 09/21/2016 12:53 PM EST 09/23/2016 Purnima Thacker 1955 [id number] Preoperative Diagnosis: Symptomatic aortic stenosis Postoperative Diagnosis: Symptomatic aortic stenosis Procedure: Aortic valve replacement: Bovine Pericardial 25 mm Surgeon: Alirio Esparza M.D. Victim Witness Administrator: Philip BALL Anesthesia: General endotracheal anesthesia Drains: [...] Operative Note Patient Name: Purnima Thacker : [id number] MR#: [id number] Case Date: 09/21/2016 Surgeon: Surgeon(s) and Role: * Alirio Esparza MD - Primary * Nico Palacios PA - Physician Victim Witness Administrator Preoperative diagnosis: Postoperative diagnosis: Procedure(s) (LRB): @REPLACE [...] PM EST Hospital Encounter [place] [phone] Markel Borjas MD [facility] [place] [address] 06/05/2024 2:00 PM EST - 06/05/2024 3:00 PM EST Surgery [place]patient [place] [phone] Markel Borjas MD [facility] [place] [address] (OSC MSURG) BONE MARROW BIOPSY AND ASPIRATION; DIAGNOSTIC (WRVU 1.44) 06/23/2024 2:00 PM EST Office Visit H[place]ology [place] [phone] Markel Borjas MD [facility] [place] [address] 03/01/2025 4:15 PM EDT Office Visit Dermatology at [address] [place] [address] Marek Bonilla MD [address], TODD [place] [address] Scheduled Orders Name Type Priority Associated Diagnoses [...] IMPLANTABLE DEVICES SCAN 09/26/2016 12:00 AM EST ADJUSTMENT EXAMINER SCAN 09/26/2016 12:00 AM EST POTASSIUM Routine [...] SCAN EXT O RDR/RSLT * SCAN DOC: ADJUSTMENT EXAMINER (09/26/2016 12:00 AM EST) Anatomical Region Laterality [...] [facility]/[place] [address] * (ABNORMAL) Differential, Automated (09/24/2016 9:56 AM EST) Neutrophil % 76.8 % [facility] Neutrophil Absolute 7.79(H) 1.70 - 6.10 x10(3)/mc L [facility] Lymph % 11.1 % [facility] Lymphocytes Abs 1.1 0.9 - 3.2 x10(3)/mc L [facility] Monocyte % 8.5 % [facility] Monocyte Abs 0.9 0.3 - 0.9 x10(3)/mc L [facility] Eos % 0.5 % [facility] Eosinophils Abs 0.0 0.0 - 0.4 x10(3)/mc L [facility] Basophil % 0.2 % [facility] Baso [...] Absolute 0.29(H) 0.00 - 0.04 x10(3)/mc L [facility] Blood specimen (specimen) 09/24/2016 9:56 AM EST 09/24/2016 10:04 AM EST Narrative Resulting Agency Comment Spec In Lab Alirio Esparza MD HEMATOLOGY ORDERABL ES Performing Organization Address City/[facility]/ZIP Co de Phone Number [facility] [place] [address] * (ABNORMAL) Hemogram (09/24/2016 9:56 AM EST) [facility] White Blood Cell 10.1(H) 4.0 - 9.5 [...] HOSPITAL LABORATORY Platelet 141(L) 145 - 357 x10(3)/ L [facility] RDW Standard Deviation 45.0 37.0 - 46.0 [facility] RDW coefficient of variation 12.6 11.5 - 14.1 % [facility] Mean Platelet Volume 9.4 7.6 - 12.9 fL [facility] NRBC% auto 1.1 % [facility] NRBC Absolute 0.110(H) 0.000 - 0.000 x10(3)/ L [facility] Blood specimen (specimen) 09/24/2016 9:56 AM EST 09/24/2016 10:04 AM EST Narrative Resulting Agency Comment Spec In Lab Alirio Esparza MD HEMATOLOGY ORDERABL ES [facility] [place] [address] * (ABNORMAL) Basic Metabolic Panel (non-fasting) (09/24/2016 9:56 AM EST) [facility] Glucose 111 65 - 199 mg/dL [facility] Comment:Diabetes: >=200 mg/d L plus symptoms Blood Urea Nitrogen 23(H) 8 - 18 mg/dL [facility] Comment:result rechecked-ART Creatinine 0.89 0.70 - 1.20 mg/dL [facility] Comment: Please note that the pediatric reference intervals supplied above were not validated at [facility]. Results from pediatric patients [...] the following links into your internet browser. [email or web address] Blood specimen (specimen) 09/24/2016 9:56 AM EST 09/24/2016 10:04 AM EST Narrative Resulting Agency Comment Spec In Lab Alirio Esparza MD CHEMISTRY ORDERABLE S [facility] [place] [address] * XR Chest PA & Lateral (Generic) [...] ORDERABLE S Performing Organization Address [facility] Co de Phone Number [facility] [place] [address] * POCT Glucose (09/22/2016 8:17 AM EST) Glucose, POC 131 65 - 199 mg/dL [facility] Comment: Supplemental ranges: <140 mg/dL before meals <180 mg/dL all other times of the day Blood specimen (specimen) 09/22/2016 8:17 AM EST 09/22/2016 8:17 AM EST Alirio Esparza MD POINT OF CARE TEST ORDERABLES Performing Organization Address [facility] Co de Phone Number [facility] [place] [address] * POCT Glucose (09/22/2016 4:01 AM EST) Glucose, POC 135 65 - 199 mg/dL [facility] Comment: Supplemental ranges: <140 mg/dL before meals <180 mg/dL all other times of the day Blood specimen (specimen) 09/22/2016 4:01 AM EST 09/22/2016 4:01 AM EST Alirio Esparza MD POINT OF CARE TEST ORDERABLES Performing Organization Address [facility] Co de Phone Number [facility] [place] [address] * Scan, Peripheral Blood (09/22/2016 4:00 AM EST) Plat estimate Normal [facility] RBC Morphology Abnormal [facility] Macrocyte 1-5 /HPF [facility] Plat, Giant Less than 1 /HPF [facility] Blood specimen (specimen) 09/22/2016 4:00 AM EST 09/22/2016 4:34 AM EST Narrative Resulting Agency Comment Spec In Lab Alirio Esparza MD HEMATOLOGY ORDERABL ES Performing Organization Address [facility]/ZIP Co de Phone Number [facility] [place] [address] * Electrolytes panel (09/22/2016 4:00 AM EST) [facility] Sodium 145 135 - 145 mmol/L [facility] [...] ORDERABLE S Performing Organization Address [facility] Co de Phone Number [facility] [place] [address] * (ABNORMAL) Differential, Automated (09/22/2016 4:00 AM EST) [facility] Neutrophil % 70.9 % [facility] Neutrophil Absolute 5.33 1.70 - 6.10 x10(3)/mc L [facility] Lymph % 9.1 % [facility] Lymphocytes Abs 0.7(L) 0.9 - 3.2 x10(3)/mc L [facility] Monocyte % 18.0 % [facility] Monocyte Abs 1.4(H) 0.3 - 0.9 x10(3)/mc L [facility] Eos % 0.0 % [facility] Eosinophils Abs 0.0 0.0 - 0.4 x10(3)/mc L [facility] Basophil % 0.1 % [facility] Baso [...] MD HEMATOLOGY ORDERABL ES Performing Organization Address City/State/[facility] Co de Phone Number [facility] [place] [address] * (ABNORMAL) Hemogram (09/22/2016 4:00 AM EST) White Blood Cell 7.5 4.0 - 9.5 x10(3)/[facility] Red Blood Cell 2.93(L) 4.00 - 5.21 x10(6)/ L [facility] Hemoglobin [...] HOSPITAL LABORATORY Platelet 161 145 - 357 x10(3)/[facility] RDW Standard Deviation 44.0 37.0 - 46.0 fL [facility] RDW coefficient of variation 12.6 11.5 - 14.1 % [facility] Mean Platelet Volume 9.3 7.6 - 12.9 fL [facility] NRBC% auto 0.3 % [facility] NRBC Absolute 0.020(H) 0.000 - 0.000 x10(3)/mc L [facility] Blood specimen (specimen) 09/22/2016 4:00 AM EST 09/22/2016 4:34 AM EST Narrative Resulting Agency Comment Spec In Lab Alirio Esparza MD HEMATOLOGY ORDERABL ES [facility] [place] [address] * (ABNORMAL) Cardiac Enzymes (09/22/2016 4:00 AM [...] of the Joint Society of Cardiology/[place] [employer] Committee for the redefinition of myocardial infarction. ??Journal of the [place] [employer]iology 2000; 36: 959-969] Creatine Kinase 338(H) 0 - 160 unit/L [facility] Blood specimen (specimen) 09/22/2016 4:00 AM EST 09/22/2016 4:34 AM EST Narrative Resulting Agency Comment Spec In Lab Alirio Esparza MD CHEMISTRY ORDERABLE S Performing Organization Address [facility] Co de Phone Number [facility] [place] [address] * (ABNORMAL) Glucose, fasting (09/22/2016 4:00 AM [...] Mellitus, Position Statement from the [place] Diabetes Association. ??Diabetes Care, Volume 33, Supplement 1, Aug 2009 Blood specimen (specimen) 09/22/2016 4:00 AM EST 09/22/2016 4:34 AM EST Narrative Resulting Agency Comment Spec In Lab Alirio Esparza MD CHEMISTRY ORDERABLE S Performing Organization Address [facility] Co de Phone Number [facility] [place] [address] * (ABNORMAL) Creatinine (09/22/2016 4:00 AM EST) Creatinine 0.69(L) 0.70 - 1.20 mg/dL [facility] Comment: Please note that the pediatric reference intervals supplied above were not validated at [facility]. Results from pediatric patients [...] the following links into your internet browser. [email or web address] Blood specimen (specimen) 09/22/2016 4:00 AM EST 09/22/2016 4:34 AM EST Narrative Resulting Agency Comment Spec In Lab Alirio Esparza MD CHEMISTRY ORDERABLE S Performing Organization Address [facility] Co de Phone Number [facility] [place] [address] * BUN (09/22/2016 4:00 AM EST) Blood Urea Nitrogen 10 8 - 18 mg/dL [facility] Blood specimen (specimen) 09/22/2016 4:00 AM EST 09/22/2016 4:34 AM EST Narrative Resulting Agency Comment Spec In Lab Alirio Esparza MD CHEMISTRY ORDERABLE S Performing Organization Address [facility] Co de Phone Number [facility] [place] [address] * POCT Glucose (09/21/2016 9:59 PM EST) Glucose, POC 146 65 - 199 mg/dL [facility] Comment: Supplemental ranges: <140 mg/dL before meals <180 mg/dL all other times of the day Blood specimen (specimen) 09/21/2016 9:59 PM EST 09/21/2016 9:59 PM EST Alirio Esparza MD POINT OF CARE TEST ORDERABLES Performing Organization Address [facility] Co de Phone Number [facility] [place] [address] * POCT Glucose (09/21/2016 7:26 PM EST) Glucose, POC 152 65 - 199 mg/dL [facility] Comment: Supplemental ranges: <140 mg/dL before meals <180 mg/dL all other times of the day Blood specimen (specimen) 09/21/2016 7:26 PM EST 09/21/2016 7:26 PM EST Alirio Esparza MD POINT OF CARE TEST ORDERABLES [facility] [place] [address] * POCT Glucose (09/21/2016 6:00 PM EST) Glucose, POC 146 65 - 199 mg/dL [facility] Comment: Supplemental ranges: <140 mg/dL before meals <180 mg/dL all other times of the day Blood specimen (specimen) 09/21/2016 6:00 PM EST 09/21/2016 6:00 PM EST Alirio Esparza MD POINT OF CARE TEST ORDERABLES Performing Organization Address City/[facility] Co de Phone Number [facility] [place] [address] * (ABNORMAL) BLOOD GAS 2 ARTERIAL (09/21/2016 [...] [facility] FIO2 Art 40 % [facility] PF Ratio Art 270 [facility] Blood specimen (specimen) 09/21/2016 4:42 PM EST 09/21/2016 4:42 PM EST Alirio Esparza MD POINT OF CARE TEST ORDERABLES [facility] [place] [address] * POCT Glucose (09/21/2016 4:07 PM EST) Glucose, POC 150 65 - 199 mg/dL [facility] Comment: Supplemental ranges: <140 mg/dL before meals <180 mg/dL all other times of the day Blood specimen (specimen) 09/21/2016 4:07 PM EST 09/21/2016 4:07 PM EST Alirio Esparza MD POINT OF CARE TEST ORDERABLES Performing Organization Address [facility] Co de Phone Number [facility] [place] [address] * (ABNORMAL) Hemoglobin (09/21/2016 4:05 PM EST) [facility] Hemoglobin 9.9(L) 11.7 - 15.5 gm/dL [facility] Blood specimen (specimen) 09/21/2016 4:05 PM EST 09/21/2016 4:20 PM EST Narrative Resulting Agency Comment Spec In Lab Alirio Esparza MD HEMATOLOGY ORDERABL ES Performing Organization Address [facility] Co de Phone Number [facility] [place] [address] * Potassium (09/21/2016 4:05 PM EST) [facility] Potassium 4.6 3.5 - 5.0 mmol/L [place] [...] ORDERABLE S Performing Organization Address [facility] Co de Phone Number [facility] [place] [address] * POCT Glucose (09/21/2016 2:52 PM EST) Pathologist [facility] Glucose, POC 117 65 - 199 mg/dL [facility] Comment: Supplemental ranges: <140 mg/dL before meals <180 mg/dL all other times of the day Blood specimen (specimen) 09/21/2016 2:52 PM EST 09/21/2016 2:52 PM EST Alirio Esparza MD POINT OF CARE TEST ORDERABLES Performing Organization Address [facility] de Phone Number [facility] [place] [address] * POCT Glucose (09/21/2016 1:51 PM EST) Glucose, POC 108 65 - 199 mg/dL [facility] Comment: Supplemental ranges: <140 mg/dL before meals <180 mg/dL all other times of the day Blood specimen (specimen) 09/21/2016 1:51 PM EST 09/21/2016 1:51 PM EST Alirio Esparza MD POINT OF CARE TEST ORDERABLES Performing Organization Address [facility] Phone Number [facility] [place] [place] [address] * POCT Glucose (09/21/2016 12:54 PM EST) Glucose, POC 128 65 - 199 mg/dL [facility] Comment: Supplemental ranges: <140 mg/dL before meals <180 mg/dL all other times of the day Blood specimen (specimen) 09/21/2016 12:54 PM EST 09/21/2016 12:54 PM EST Alirio Esparza MD POINT OF CARE TEST ORDERABLES Performing Organization Address [facility] de Phone Number [facility] [place] [address] * EKG 12 Lead (09/21/2016 12:26 PM EST) Ventricular rate 87 BPM MUSE SYSTEM Atrial Rate 87 BPM MUSE SYSTEM P-R Interval 256 ms MUSE SYSTEM QRS Duration 90 ms MUSE SYSTEM Q-T Interval 406 ms MUSE SYSTEM QTC Calculated (Bezet) 488 ms MUSE SYSTEM Calculated P Commerce 24 degrees MUSE SYSTEM Calculated R Commerce 21 degrees MUSE SYSTEM Calculated T Commerce -5 degrees MUSE SYSTEM INTERPRETATION Sinus rhythm [...] course of the esophagus and below the [id number]. There is a right IJ PA catheter [...] the course of theesophagus and below the [id number]-muas. There is a right IJ PA catheter [...] [facility] FIO2 Art 100 % [facility] PF Ratio Art 356 [facility] Blood specimen (specimen) 09/21/2016 12:20 PM EST 09/21/2016 12:20 PM EST Alirio Esparza MD POINT OF CARE TEST ORDERABLES [facility] [place] [address] * (ABNORMAL) BLOOD GAS 2 ARTERIAL (09/21/2016 [...] [facility] FIO2 Art 95 % [facility] Flow Art 0.7 LPM [facility] PF Ratio Art 313 [facility] Temp Art 36.7 Celsius [facility] Blood specimen (specimen) 09/21/2016 10:54 AM EST 09/21/2016 10:54 AM EST Alirio Esparza MD POINT OF CARE TEST ORDERABLES Performing Organization Address [facility] [place] [address] * Thrombin time (09/21/2016 10:50 AM EST) [...] ORDERABLE S Performing Organization Address [facility]/ZIP Co de Phone Number [facility] [place] [address] * Fibrinogen (09/21/2016 10:50 AM EST) Pathologist [facility] Fibrinogen 228 180 - 510 mg/dL [place] [...] ORDERABLE S Performing Organization Address [facility] de Phone Number [facility] [place] [address] * APTT (09/21/2016 10:50 AM EST) Partial Thromboplastin Time 32 25 - 35 sec [facility] Comment: The recommended therapeutic range for full dose, unfractionated heparin at [facility] is 80 ? 114 [...] S Performing Organization Address [facility] de Phone Number [facility] [place] [address] * (ABNORMAL) Prothrombin Time (09/21/2016 10:50 AM [...] ORDERABLE S [facility] [place] [address] * (ABNORMAL) Hemogram (09/21/2016 10:50 AM EST) [...] [facility] NRBC% auto 0.1 % [facility] NRBC Absolute 0.020(H) 0.000 - 0.000 x10(3)/mc L [facility] Blood specimen (specimen) 09/21/2016 10:50 AM EST 09/21/2016 10:56 AM EST Narrative Resulting Agency Comment Spec In Lab Luis Enrique Quarles MD [place]EMATOLOG[place] [address] * Prepare Platelets, Apheresis (09/21/2016 10:30 AM EST) Dispensed? Yes [facility] Blood specimen (specimen) 09/21/2016 10:30 AM EST 09/21/2016 10:28 AM EST Alirio Esparza MD BLOOD BANK PRODUCT ORDERABLES Performing Organization Address [facility]/ZIP [place] [address] * (ABNORMAL) BLOOD GAS 2 ARTERIAL (09/21/2016 10:05 AM EST) pH, Arterial 7.33(L) 7.35 - 7.45 [facility] PCO2, Arterial 54(Critic al) 35 - 45 mmHg [facility] Comment:Noted by electrical & instrumentation supervisor. PO2, Arterial 218(H) 85 - 104 [...] COUNTY [facility] Comment: Noted by electrical & instrumentation supervisor. Please note: Patients with WBC >100,000 [...] [facility] Temp Art 37.0 Celsius [facility] Blood specimen (specimen) 09/21/2016 10:05 AM EST 09/21/2016 10:05 AM EST Alirio Esparza MD POINT OF CARE TEST ORDERABLES [facility] [place] [address] * (ABNORMAL) BLOOD GAS 2 ARTERIAL (09/21/2016 9:44 AM EST) pH, Arterial 7.22(Criti gabrielle) 7.35 - 7.45 [facility] Comment:Noted by electrical & instrumentation supervisor. PCO2, Arterial 70(Critica l) 35 - 45 mmHg [facility] Comment:Noted by electrical & instrumentation supervisor. PO2, Arterial 224(H) 85 - 104 [...] OF CARE TEST ORDERABLES Performing Organization Address City/State/[facility] Co de Phone Number [facility] [place] [address] * (ABNORMAL) Hemoglobin (09/21/2016 9:42 AM EST) Hemoglobin 7.2(L) 11.7 - 15.5 gm/dL [facility] Blood specimen (specimen) 09/21/2016 9:42 AM EST 09/21/2016 9:51 AM EST Narrative Resulting Agency Comment Spec In Lab Alirio Esparza MD HEMATOLOGY ORDERABL ES [facility] [place] [address] * Platelet count (09/21/2016 9:42 AM EST) Platelet 159 145 - 357 x10(3)/mc L [facility] Immature Plt % 1.6 0.0 - 7.4 % [facility] Comment: Limitation of the Immature Platelet Fraction (IPF)-May be less reliable when the platelet count is less than 44w311/uL due to statistical imprecision. The IPF value [...] in a decreased state of production. References: [employer] The Clinical Value of the Immature Platelet Fraction (IPF) in Cell Recovery Document Number 10-1143 12/2010 [employer] The Role of the Immature Platelet Fraction (IPF) in the Differential Diagnosis of Thrombocytopenia, Document [id number] [id number] Blood specimen (specimen) 09/21/2016 9:42 AM EST 09/21/2016 9:51 AM EST Narrative Resulting Agency Comment Spec In Lab Alirio Esparza MD HEMATOLOGY ORDERABL ES [facility] [place] [address] * (ABNORMAL) Hematocrit (09/21/2016 9:42 AM EST) [...] ES Performing Organization Address [facility] Co de Phone Number [facility] [place] [address] * Fibrinogen (09/21/2016 9:42 AM EST) Fibrinogen [...] ES Performing Organization Address [facility] Co de Phone Number [facility] [place] [address] * (ABNORMAL) BLOOD GAS 2 ARTERIAL (09/21/2016 [...] [facility] Temp Art 37.0 Celsius [facility] Blood specimen (specimen) 09/21/2016 9:10 AM EST 09/21/2016 9:10 AM EST Alirio Esparza MD POINT OF CARE TEST ORDERABLES Performing Organization Address City/State/[facility] de Phone Number [facility] [place] [address] * Surgical Pathology Report (09/21/2016 9:09 AM EST) Final Diagnosis [id number] ?Location: 3T The signing pathologist has (i) [...] PATHOLOGY/CYTOLOGY ORDERABLES Performing Organization Address [facility] Co de Phone Number [facility] [place] [phone] * Specimen to Pathology (surgical or derm) (09/21/2016 9:09 AM EST) AP Specimen 09/21/2016 9:09 AM EST 09/21/2016 9:09 AM EST Narrative [facility] - 09/21/2016 9:09 AM EST Specimen requisition ordered. ??Separate Pathology report to follow Alirio Esparza MD PATHOLOGY/CYTOLOGY ORDERABLES Performing Organization Address [facility] Co de Phone Number [facility] [place] [phone] * (ABNORMAL) BLOOD GAS 2 ARTERIAL (09/21/2016 [...] TEST ORDERABLES [facility] [place] [address] * (ABNORMAL) BLOOD GAS 2 ARTERIAL (09/21/2016 [...] [facility] FIO2 Art 95 % [facility] Flow Art 1.1 LPM [facility] PF Ratio Art 298 [facility] Temp Art 35.6 Celsius [facility] Blood specimen (specimen) 09/21/2016 8:18 AM EST 09/21/2016 8:18 AM EST Alirio Esparza MD POINT OF CARE TEST ORDERABLES Performing Organization Address [facility] Co de Phone Number [facility] [place] [address] * Prepare RBC (09/21/2016 7:05 AM EST) Dispensed? Yes [facility] Blood specimen (specimen) 09/21/2016 7:05 AM EST 09/21/2016 7:02 AM EST Alirio Esparza MD BLOOD BANK PRODUCT ORDERABLES Performing Organization Address [facility] Phone Number [facility] [place] [address] * POCT Glucose (09/21/2016 6:42 AM EST) Glucose, POC 104 65 - 199 mg/dL [facility] Comment: Supplemental ranges: <140 mg/dL before meals <180 mg/dL all other times of the day Blood specimen (specimen) 09/21/2016 6:42 AM EST 09/21/2016 6:42 AM EST Alirio Esparza MD POINT OF CARE TEST ORDERABLES Performing Organization Address [facility] Co de Phone Number [facility] [place] [address] documented in this encounter Visit Diagnoses Diagnosis [...] dose on Wed09/21/16 at 1230, Until Discontinued, [place] teeth, Routine Given 09/25/2016 9:40 AM EST [...] if phenyleprine and/or vasopressin ineffective.Call pager # [phone] if initiated., Routine Rate/Dose Change 09/21/2016 2:27 [...] 2.0 L/min/M2. Maximum volume 2 L. Call dry house worker for additional fluid orders: pager #[phone]. Rate/Dose Verify 09/22/2016 10:00 AM EST 10 mL/hr 10 mL/hr Rate/Dose Change 09/22/2016 8:12 AM EST 10 mL/hr 10 mL/h r Rate/Dose Verify 09/21/2016 2:00 PM EST 100 mL/hr 100 mL/ hr sodium chloride 0.9% infusion 10-30 mL/hr, Intravenous, DAILY PRN, Starting on Wed09/21/16 at 1206, Until Wed09/22/16 at 1036, Side port TKO rate, per [facility] nursing protocol. Rate/Dose Verify 09/21/2016 5:00 PM EST 30 mL/hr 30 mL/hr Rate/Dose Verify 09/21/2016 4:00 PM EST 30 mL/hr 30 mL/h r Rate/Dose Verify 09/21/2016 3:00 PM EST 30 mL/hr 30 mL/h r sodium chloride 0.9% infusion 10-30 mL/hr, Intravenous, DAILY PRN, Starting on Wed09/21/16 at 1206, Until Wed09/22/16 at 1036, Side port TKO rate, per [facility] nrusing protocol. Rate/Dose Verify 09/22/2016 10:00 [...] dose on Wed09/21/16 at 1230, Until Discontinued, [place] teeth, Routine 0900 (Not Given - Provider: Elsa Miguel RN - Reason: Patient/family refused)2018 (Given - Provider: Fedreico Apple, VALDO) 09 (Not Given - Provider: Marek Barnes, VALDO - Reason: Patient/family refused)2099 (Not Given - Provider: Alie Whitfield RN - Reason: Patient/family refused) 0940 (Given - Provider: Joselyn Caceres, RN) fluconazole (DIFLUCAN) tablet 200 mg 200 [...] Discontinued 1301 (Given - Provider: Federico Apple, VADLO)1708 (Given - Provider: Federico Apple, RN) 0826 (Given - Provider: Marek Barnes, [...] RN) 08 (Given - Provider: Marek Barnes, RN) 0941 [...] Routine documented in this encounter Care Teams Forestry Professor Relationship Specialty Start Date End Date Deborah Quiroga APRN PCP - General Family Medicine 03/24/16 02/04/23 documented as of this encounter
--- OUTSIDE RECORDS SUMMARY | 2024-05-23 14:09 | XMS_ITS | Encounter Summary ---
[place] [address] Care Team Providers Care Office Systems Technology Instructor Name Role Phone Ashley Quirogan Cornelius ANURAG Primary Care Provider [phone] Reason for Visit * Reason Onset Date Comments Medical Care Coordination 07/27/2017 Encounter Details Date Type Department Care Team (Late st Contact Info) Description 07/27/2017 Telephone [place]ematology [place] [phone] Alexandrea Greenwood RN Medical Care Coordination Social [...] construction secretary: Injection/Infusion Referral Call placed to [facility] @ [phone] Spoke w/ UNIT COORDINATOR Services to be provided for pt are: CBC/CMP DONE Q6 MONTHS X2 STARTING NOVEMBER 2017 TECH confirmed they would provide services to pt - I CALLED PT, LM. Pt orders faxed to [phone] documented in this encounter Plan of Treatment Upcoming Encounters Date Type Department Care Team (Late st Contact Info) Description 06/05/2024 2:00 PM EST Hospital Encounter [place] [phone] Markel Borjas MD [facility] [address] HEMATOLOGY [place] [address] 06/05/2024 2:00 PM EST - 06/05/2024 3:00 PM EST Surgery [place] [phone] Markel Borjas MD [facility] [address] HEMATOLOGY [place] [address] (OSC MSURG) BONE MARROW BIOPSY AND ASPIRATION; DIAGNOSTIC (WRVU 1.44) 06/23/2024 2:00 PM EST Office Visit Hematology [place] [phone] Markel Borjas MD [facility] HEMATOLOGY [place] [address] 03/01/2025 4:15 PM EDT Office Visit Dermatology at [address] [place] [phone] Marek Bonilla MD [address], TODD A DERMATOLOGY [place], [place] [phone] Scheduled Procedures Name Priority Associated Diagnoses Date/Ti me (OSC MSURG) BONE MARROW BIOPSY AND ASPIRATION; DIAGNOSTIC (WRVU 1.44) Anemia, in pt with longstanding neutropenia 06/05/2024 2:00 PM EST documented as of this encounter Visit Diagnoses Not on filedocumented in this encounter Care Teams Office Systems Technology Instructor Relationship Specialty Start Date End Date Deborah Quiroga APRN PCP - General Family Medicine 03/24/16 02/04/23 documented as of this encounter
--- OUTSIDE RECORDS SUMMARY | 2024-05-23 14:09 | XMS_ITS | Encounter Summary ---
Author Organization [facility] [place] [address] Care Team Providers Care Product Development Actuary Name Role Phone Deborah Quiroga ANURAG Primary Care Provider [phone] Encounter Details Date Type Department Care Team (Late st Contact Info) Description 02/07/2020 Telephone Hematology [place] [phone] Ellen Rios RN Social History [...] 02/07/2020 12:59 PM EDT Message received from alumnae secretary: Injection/Infusion Referral Services to be provided for pt are: CBC only at [facility]- Pt will go by 02/27 Orders faxed to [phone]). Spoke with pt. She will call [facility] directly to schedule a time that works for her. documented in this encounter Plan of Treatment Upcoming Encounters Date Type Department Care Team (Late st Contact Info) Description 06/05/2024 2:00 PM [facility] Hospital Encounter [place] [phone] Markel Borjas MD [facility] [address] H[place] [address] 06/05/2024 2:00 PM EST - 06/05/2024 3:00 PM EST Surgery Outpatient Surgery Center [facility] [place] [address] Markel Borjas MD [facility] [address] HEMAT[place] [address] (OSC MSURG) BONE MARROW BIOPSY AND ASPIRATION; DIAGNOSTIC (WRVU 1.44) 06/23/2024 2:00 PM EST Office Visit [place]ematology [place] [address] Markel Borjas MD [facility] [address] [place] [address] 03/01/2025 4:15 PM EDT Office Visit Dermatology at [address] [place] [address] Marek Bonilla MD [address], [place] [address] Scheduled Procedures Name Priority Associated Diagnoses Date/Ti me (OSC MSURG) BONE MARROW BIOPSY AND ASPIRATION; DIAGNOSTIC (WRVU 1.44) Anemia, in pt with longstanding neutropenia 06/05/2024 2:00 PM EST documented as of this encounter Visit Diagnoses Not on filedocumented in this encounter Care Teams Product Development Actuary Relationship Specialty Start Date End Date Deborah Quiroga APRN PCP - General Family Medicine 03/24/16 02/04/23 documented as of this encounter
--- OUTSIDE RECORDS SUMMARY | 2024-05-23 14:09 | XMS_ITS | Encounter Summary ---
[place] [address] Care Team Providers Care Cytotechnologist Supervisor Name Role Phone Deborah Quiroga APRN Primary Care Provider [phone] Reason for Referral * Consultation (Routine) - Closed Specialty Diagnoses / Procedures Referred By Contac t Referred To Contact Rheumatology Diagnoses Positive FRANCISCO (antinuclear antibody) Arthralgia, unspecified joint Sandy Wu APRN [address] [place] [address] [facility] [place], [place] Rheumatology [address] [place] [phone] Referral ID Status Reason Start Date Expiration Date V isits Requested Visits Authorized [id number] Closed Consult, Test & Treat PCP Updated and/or Approved 01/01/2022 01/01/2023 6 6 Encounter Details Date Type Department Care Team (Latest Contact Info) Description 01/01/2022 Transcribe Orders eDH Incoming Referrals [phone] Sandy Wu APRN [address] [place], [place] [id number] Positive FRANCISCO (antinuclear antibody); Arthralgia, unspecified joint [...] PM EST Hospital Encounter [place] [phone] Markel Borjas MD [facility] [place] [address] 06/05/2024 2:00 PM EST - 06/05/2024 3:00 PM EST Surgery [place] [phone] Markel Borjas MD [facility] [address] [place] [address] (OSC MSURG) BONE MARROW BIOPSY AND ASPIRATION; DIAGNOSTIC (WRVU 1.44) 06/23/2024 2:00 PM EST Office Visit Hematology [place] [address] Markel Borjas MD [facility] [place] [address] 03/01/2025 4:15 PM EDT Office Visit Dermatology at [place] [address] [facility] [place] [phone] Marek Bonilla MD [address], TODD A DERMATOLOGY [place], [place] [id number] Scheduled Procedures Name Priority Associated Diagnoses Date/Ti [...] joint documented in this encounter Care Teams Cytotechnologist Supervisor Relationship Specialty Start Date End Date Deborah Quiroga APRN PCP - General Family Medicine 03/24/16 02/04/23 documented as of this encounter
--- OUTSIDE RECORDS SUMMARY | 2024-05-23 14:09 | XMS_ITS | Encounter Summary ---
[place] [address] Care Team Providers Care Machine Tool Builder Name Role Phone Junaid, Deborah Shields APRN Primary Care Provider [phone] Encounter Details Date Type Department Care Team (Late st Contact Info) Description 10/20/2016 11:20 AM EDT Office [place] [phone] Alirio Esparza MD S/P AVR Social History [...] should continue to see Dr. Burrell, her farm rancher at [facility]. cc: Dr. Burrell documented in this encounter Plan of Treatment Upcoming Encounters Date Type Department Care Team (Late st Contact Info) Description 06/05/2024 2:00 PM EST Hospital Encounter Outpatient [place] [address] Markel Borjas MD [facility] DR HEMATOLOGY [place] [address] 06/05/2024 2:00 PM EST - 06/05/2024 3:00 PM EST Surgery [place]patient [place] [address] Markel Borjas MD [facility] DR HEMATOLOGY [place] [address] (OSC MSURG) BONE MARROW BIOPSY AND ASPIRATION; DIAGNOSTIC (WRVU 1.44) 06/23/2024 2:00 PM EST Office Visit Hematology [place] [address] Markel Borjas MD [facility] DR HEMATOLOGY [place] [address] 03/01/2025 4:15 PM EDT Office Visit Dermatology at [place] [address] [place] [address] Marek Bonilla MD [address], [place] [address] Scheduled Procedures Name Priority Associated Diagnoses Date/Ti me (OSC MSURG) BONE MARROW BIOPSY AND ASPIRATION; DIAGNOSTIC (WRVU 1.44) Anemia, in pt with longstanding neutropenia 06/05/2024 2:00 PM EST documented as of this encounter Visit Diagnoses Diagnosis S/P AVR Heart valve replaced by other means documented in this encounter Care Teams Machine Tool Builder Relationship Specialty Start Date End Date Deborah Quiroga APRN PCP - General Family Medicine 03/24/16 02/04/23 documented as of this encounter
--- OUTSIDE RECORDS SUMMARY | 2024-05-23 14:09 | XMS_ITS | Encounter Summary ---
Author Organization [facility] [place] [address] Care Team Providers Care Core Drier Name Role Phone Deborah Quiroga ANURAG Primary Care Provider [phone] Encounter Details Date Type Department Care Team (Late st Contact Info) Description 07/21/2017 Orders Only [place]ology [place] [address] Alexandrea Greenwood RN Other neutropenia Social History [...] PM EST Hospital Encounter Outpatient [place] [phone] Markel oBrjas MD [facility] HEMATOLOGY [place] [address] 06/05/2024 2:00 PM EST - 06/05/2024 3:00 PM EST Surgery Outpatient [place] [phone] Markel Borjas MD [facility] DR [place] [address] (OSC MSURG) BONE MARROW BIOPSY AND ASPIRATION; DIAGNOSTIC (WRVU 1.44) 06/23/2024 2:00 PM EST Office Visit [place] [address] Markel Borjas MD [facility] DR HEMATOLOGY [place] [address] 03/01/2025 4:15 PM EDT Office Visit Dermatology at [place] [address] [place] [address] Marek Bonilla MD [address], [place] [address] Scheduled Procedures Name Priority Associated Diagnoses Date/Ti me (OSC MSURG) BONE MARROW BIOPSY AND ASPIRATION; DIAGNOSTIC (WRVU 1.44) Anemia, in pt with longstanding neutropenia 06/05/2024 2:00 PM EST documented as of this encounter Visit Diagnoses Diagnosis Other neutropenia documented in this encounter Care Teams Core Drier Relationship Specialty Start Date End Date Deborah Quiroga APRN PCP - General Family Medicine 03/24/16 02/04/23 documented as of this encounter
--- OUTSIDE RECORDS SUMMARY | 2024-05-23 14:10 | XMS_ITS | Encounter Summary ---
Author Organization [facility] Address [facility] [place] [address] Care Team Providers Care Vapor Coater Name Role Phone Junaid Deborah Shields APRN Primary Care Provider [phone] Encounter Details Date Type Department Care Team (Latest Contact Info) Description 06/19/2016 - 06/19/2016 11:59 PM EST Hospital Encounter Radiology [place] [phone] Nitesh Pina Jr., MD [facility] HEMATOLOGY [place] [address] Pain Discharge Disposition: Home Social History Tobacco [...] PM EST Hospital Encounter Outpatient [place] [address] Markel Borjas MD [facility] DR HEMATOLOGY [place] [address] 06/05/2024 2:00 PM EST - 06/05/2024 3:00 PM EST Surgery Outpatient [place] [address] Markel Borjas MD [facility] DR HEMATOLOGY [place] [address] (OSC MSURG) BONE MARROW BIOPSY AND ASPIRATION; DIAGNOSTIC (WRVU 1.44) 06/23/2024 2:00 PM EST Office Visit Hematology [place] [address] Markel Borjas MD [facility] DR HEMATOLOGY [place] [address] 03/01/2025 4:15 PM EDT Office Visit Dermatology at [place] [address] [place] [address] Marek Bonilla MD [address], [place] [address] Scheduled Procedures Name Priority Associated Diagnoses Date/Ti [...] Pelvis (06/19/2016 12:00 AM EST) Narrative [facility][NOTE 3] - 06/20/2016 8:53 AM EST This exam is for storage only and is auto-finalizing. Nitesh Pina Jr., MD G FILM LIBRARY ORD ERABLES Performing Organization Address City/State/[facility] Co de Phone Number [place], [place] documented in this encounter Visit Diagnoses Diagnosis Pain Generalized pain documented in this encounter Care Teams Vapor Coater Relationship Specialty Start Date End Date Deborah Quiroga, BALING MACHINE TENDER PCP - General Family Medicine 03/24/16 02/04/23 documented as of this encounter
--- OUTSIDE RECORDS SUMMARY | 2024-05-23 14:10 | XMS_ITS | Encounter Summary ---
Author Organization [facility] [address] Care Team Providers Care Investor Relations Manager Name Role Phone Junaid, Deborah Shields APRN Primary Care Provider [phone] Encounter Details Date Type Department Care Team (Late st Contact Info) Description 07/13/2016 External Results [place] [phone] Provider, Scanning Social History Tobacco Use Types [...] PM EST Hospital Encounter Outpatient [place] [phone] Markel Borjas MD [facility] DR [place] [address] 06/05/2024 2:00 PM EST - 06/05/2024 3:00 PM EST Surgery [place] [phone] Markel Borjas MD [facility] DR [place] [address] (OSC MSURG) BONE MARROW BIOPSY AND ASPIRATION; DIAGNOSTIC (WRVU 1.44) 06/23/2024 2:00 PM EST Office Visit [place]ematology [place] [address] Markel Borjas MD [facility] DR [place] [address] 03/01/2025 4:15 PM EDT Office Visit Dermatology at [place] [address] [place] [address] Marek Bonilla MD [address], [place] [address] Scheduled Procedures Name Priority Associated Diagnoses Date/Ti [...] on filedocumented in this encounter Care Teams Investor Relations Manager Relationship Specialty Start Date End Date Deborah Quiroga APRN PCP - General Family Medicine 03/24/16 02/04/23 documented as of this encounter
--- OUTSIDE RECORDS SUMMARY | 2024-05-23 14:10 | XMS_ITS | Encounter Summary ---
[place] [address] Care Team Providers Care Supervising Deputy Name Role Phone Ashley Quirogan Cornelius ANURAG Primary Care Provider [phone] Reason for Visit * Reason Onset Date Comments Medication Management 09/14/2016 Encounter Details Date Type Department Care Team (Late st Contact Info) Description 09/14/2016 Telephone Hematology [place] [address] Alexandrea Greenwood, certified addiction counselor Management Social History Tobacco Use Types Packs/Day [...] PM EST Hospital Encounter [place]patient [place] [phone] Markel Borjas MD [facility] DR HEMATOLOGY [place] [address] 06/05/2024 2:00 PM EST - 06/05/2024 3:00 PM EST Surgery [place] [phone] Markel Borjas MD [facility] DR HEMATOLOGY [place] [address] (OSC MSURG) BONE MARROW BIOPSY AND ASPIRATION; DIAGNOSTIC (WRVU 1.44) 06/23/2024 2:00 PM EST Office Visit [place]ology [place] [address] Markel Borjas MD [facility] DR HEMATOLOGY [place] [address] 03/01/2025 4:15 PM EDT Office Visit Dermatology at [place] [address] [place] [address] Marek Bonilla MD [address], QUOC A DERMATOLOGY [place], [place] [phone] Scheduled Procedures Name Priority Associated Diagnoses Date/Ti me (OSC MSURG) BONE MARROW BIOPSY AND ASPIRATION; DIAGNOSTIC (WRVU 1.44) Anemia, in pt with longstanding neutropenia 06/05/2024 2:00 PM EST documented as of this encounter Visit Diagnoses Not on filedocumented in this encounter Care Teams Supervising Deputy Relationship Specialty Start Date End Date Deborah Quiroga APRN PCP - General Family Medicine 03/24/16 02/04/23 documented as of this encounter
--- OUTSIDE RECORDS SUMMARY | 2024-05-23 14:10 | XMS_ITS | Encounter Summary ---
Author Organization [facility] [place] [address] Care Team Providers Care Shot Core Drill Operator Helper Name Role Phone Deborah Quiroga ANURAG Primary Care Provider [phone] Encounter Details Date Type Department Care Team (Late st Contact Info) Description 08/04/2016 External Results Hematology [place] [address] Alexandrea Greenwood RN Neutropenia, unspecified type Social [...] PM EST Hospital Encounter [place] [address] Markel Borjas MD [facility] DR HEMATOLOGY [place] [address] 06/05/2024 2:00 PM EST - 06/05/2024 3:00 PM EST Surgery [place] [address] Markel Borjas MD [facility] DR HEMATOLOGY [place] [address] (OSC MSURG) BONE MARROW BIOPSY AND ASPIRATION; DIAGNOSTIC (WRVU 1.44) 06/23/2024 2:00 PM EST Office Visit Hematology and Oncology at [facility] [place] [address] Markel Borjas MD [facility] DR HEMATOLOGY [place] [address] 03/01/2025 4:15 PM EDT Office Visit Dermatology at [place] [address] [place] [address] Marek Bonilla MD [address], [place] [address] Scheduled Procedures Name Priority Associated Diagnoses Date/Ti [...] type documented in this encounter Care Teams Shot Core Drill Operator Helper Relationship Specialty Start Date End Date Deborah Quiroga, LAMP CLEANER STREET LIGHT PCP - General Family Medicine 03/24/16 02/04/23 documented as of this encounter
--- OUTSIDE RECORDS SUMMARY | 2024-05-23 14:10 | XMS_ITS | Encounter Summary ---
[place] [address] Care Team Providers Care Loan Secretary Name Role Phone Junaid Deborah Shields APRN Primary Care Provider [phone] Reason for Visit * Auth/Cert Specialty Diagnoses / Procedures Referred By Crispin t Referred To Contact Diagnoses Aortic stenosis Procedures PRO REPLACE AORT VALV, PROSTH VALV @REPLACE AORTIC VALVE, OPEN, W\CPB, W\PROSTHETIC VALVE (WRVU 41.32) Referral ID Status Reason Start Date Expiration Date Visits Re quested Visits Authorized [id number] 1 1 Encounter Details Date Type Department Care Team (Late st Contact Info) Description 09/21/2016 7:25 AM EST Anesthesia Event [place] [address] Luis Enrique Quarles MD [facility] [address] [place] [address] Henrik Cooper MD [facility] [place] [address] Anesthesia Record Procedure Summary Procedure Name Responsible [...] 0819 Sternotomy 0844 CV Bypass init 1009 Slab Puller 1014 An Clamp Remove 1031 CP Bypass [...] Tube 09/21/16 (#28 angled chest tube to [place]: left: pericardial); Left; 09/22/16; 1119 09/21/16 0000 by Toshia Alejandre RN 09/22/16 1119 by Vero Bonilla RN Chest Tube 09/21/16 (#28 straig ht chest tube to [place]; right: mediastinal'); Right; mediastinum; 09/22/16; 1118 09/21/16 0000 by Toshia Alejandre RN 09/22/16 1118 by Vero Bonilla RN (RETIRED) Peripheral IV Line - Single Lumen 09/21/16; 0648; metacarpal vein (top of hand), left; [id number] catheter system; 20 gauge; valdo Arteaga; 09/23/16; [...] Secured at Teeth: 22 cm; Inserted by: Kneneth; Removal Date: 09/21/16; Removal Time: 16509/21/16 0745 [...] Cooper MD - 09/21/2016 6:50 PM EST [facility] Department of Anesthesiology Post-procedure Note Patient: Purnima Thacker Procedure Summary Date Anesthesia Start Anesthesia Stop Room / Location 09/21/16 07 1152 [facility] OR 16 / [facility] MAIN OR Procedure Diagnosis Surgeon Responsible Provider @REPLACE AORTIC VALVE, OPEN, W\CPB, W\PROSTHETIC VALVE (WRVU 41.32) (N/A Chest); @AORTOPLASTY FOR SUPRAVALVULAR STENOSIS (WRVU 29.33) (N/A Chest) () Alirio Francisco MD Clark, Jeffrey A, MD All Anesthesia Providers: Anesthesiologist: Luis Enrique Quarles MD Fish Hatchery Man: Henrik Cooper MD Last (1hr) Vitals: BP Temp 36.1 ??C (97 ??F) (09/21/16 1800) Pulse 79 (09/21/16 1800) Resp 11 (09/21/16 1800) SpO2 98 % (09/21/16 1800) Patient Location: [facility] Level of Consciousness: Sedated (Pharmacologic/Intentional) Pain [...] PM EST Hospital Encounter [place]patient [place] [address] Markel Borjas MD [facility] HEMATOLOGY [place] [address] 06/05/2024 2:00 PM EST - 06/05/2024 3:00 PM EST Surgery [place] [address] Markel Borjas MD [facility] DR HEMATOLOGY [place] [address] (OSC MSURG) BONE MARROW BIOPSY AND ASPIRATION; DIAGNOSTIC (WRVU 1.44) 06/23/2024 2:00 PM EST Office Visit Hematology [place] [address] Markel Borjas MD [facility] HEMATOLOGY [place] [address] 03/01/2025 4:15 PM EDT Office Visit Dermatology at [place] [address] [place] [phone] Marek Bonilla MD [address], [place] [address] Scheduled Procedures Name Priority Associated Diagnoses Date/Ti [...] mL/hr vancomycin (VANCOCIN) injection PRN, Starting on 2/20/17 at 0800, Until Wed09/21/16 at 1203, Anesthesia Intra-op, Routine Given 09/21/2016 8:00 AM EST 1 g vecuronium (NORCURON) injection PRN, Starting on Wed09/21/16 at 0743, Until Wed09/21/16 at 1203, Anesthesia Intra-op, Routine Given 09/21/2016 9:20 AM EST 5 mg Given 09/21/2016 7:43 AM EST 10 mg documented in this encounter Care Teams Loan Secretary Relationship Specialty Start Date End Date Deborah Quiroga, SAMPLE CARRIER PCP - General Family Medicine 03/24/16 02/04/23 documented as of this encounter
--- OUTSIDE RECORDS SUMMARY | 2024-05-23 14:10 | XMS_ITS | Encounter Summary ---
Author Organization [facility] [place] [address] Care Team Providers Care Will Call Clerk Name Role Phone Ashley Quirogan [place] ANURAG Primary Care Provider [phone] Reason for Visit * Reason Onset Date Comments Pre Procedure Call 06/18/2016 Encounter Details Date Type Department Care Team (Late st Contact Info) Description 06/18/2016 Telephone Hematology [place] [address] Alexandrea Greenwood RN Pre Procedure Call Social [...] PM EST Hospital Encounter Outpatient [place] [address] Markel Borjas MD [facility] [place] [address] 06/05/2024 2:00 PM EST - 06/05/2024 3:00 PM EST Surgery [place]patient [place] [address] Markel Borjas MD [facility] [place] [address] (OSC MSURG) BONE MARROW BIOPSY AND ASPIRATION; DIAGNOSTIC (WRVU 1.44) 06/23/2024 2:00 PM EST Office Visit Hematology [place] [address] Markel Borjas MD [facility] [place] [address] 03/01/2025 4:15 PM EDT Office Visit Dermatology at [place] [address] [place] [address] Marek Bonilla MD [address], [place] [address] Scheduled Procedures Name Priority Associated Diagnoses Date/Ti me (OSC MSURG) BONE MARROW BIOPSY AND ASPIRATION; DIAGNOSTIC (WRVU 1.44) Anemia, in pt with longstanding neutropenia 06/05/2024 2:00 PM EST documented as of this encounter Visit Diagnoses Not on filedocumented in this encounter Care Teams Will Call Clerk Relationship Specialty Start Date End Date Deborah Quiroga APRN PCP - General Family Medicine 03/24/16 02/04/23 documented as of this encounter
--- OUTSIDE RECORDS SUMMARY | 2024-05-23 14:10 | XMS_ITS | Encounter Summary ---
Author [place] [address] Care Team Providers Care Check Processing Clerk Name Role Phone Ashley Quirogazac Shields APRN Primary Care Provider [phone] Encounter Details Date Type Department Care Team (Late st Contact Info) Description 07/03/2016 External Results Hematology [place] [address] Matthew Cervantes, DO [address] [place] [address] Social History Tobacco Use Types Packs/Day Years [...] PM EST Hospital Encounter Outpatient [place] [address] Markel Borjas MD [facility] DR HEMATOLOGY [place] [address] 06/05/2024 2:00 PM EST - 06/05/2024 3:00 PM EST Surgery Outpatient [place] [address] Markel Borjas MD [facility] DR HEMATOLOGY [place] [address] (OSC MSURG) BONE MARROW BIOPSY AND ASPIRATION; DIAGNOSTIC (WRVU 1.44) 06/23/2024 2:00 PM EST Office Visit [place]ology [place] [address] Markel Borjas MD [facility] DR HEMATOLOGY [place] [address] 03/01/2025 4:15 PM EDT Office Visit Dermatology at [place] [address] [place] [address] Marek Bonilla MD [address], [place] [address] Scheduled Procedures Name Priority Associated Diagnoses Date/Ti [...] on filedocumented in this encounter Care Teams Check Processing Clerk Relationship Specialty Start Date End Date Deborah Quiroga APRN PCP - General Family Medicine 03/24/16 02/04/23 documented as of this encounter
--- OUTSIDE RECORDS SUMMARY | 2024-05-23 14:10 | XMS_ITS | Encounter Summary ---
Author Organization [facility] [place] [address] Care Team Providers Care Registered Art Therapist Name Role Phone Deborah Quiroga APRN Primary Care Provider [phone] Encounter Details Date Type Department Care Team (Late st Contact Info) Description 08/18/2016 Orders [place] [phone] Alirio Esparza MD Aortic valve stenosis, unspecified [...] PM EST Hospital Encounter Outpatient [place] [address] Markel Borjas MD [facility] [place] [address] 06/05/2024 2:00 PM EST - 06/05/2024 3:00 PM EST Surgery Outpatient [place] [address] Markel Borjas MD [facility] [address] [place] [address] (OSC MSURG) BONE MARROW BIOPSY AND ASPIRATION; DIAGNOSTIC (WRVU 1.44) 06/23/2024 2:00 PM EST Office Visit Hematology and Oncology at [place] [place] [address] Markel Borjas MD [facility] [address] [place] [address] 03/01/2025 4:15 PM EDT Office Visit Dermatology at [place] [address] [place] [address] Marek Bonilla MD [address], [place] [address] Scheduled Procedures Name Priority Associated Diagnoses Date/Ti me (OSC MSURG) BONE MARROW BIOPSY AND ASPIRATION; DIAGNOSTIC (WRVU 1.44) Anemia, in pt with longstanding neutropenia 06/05/2024 2:00 PM EST documented as of this encounter Results * Basic Metabolic Panel (non-fasting) (08/18/2016 4:50 PM EST) Glucose 82 65 - 199 mg/dL [facility] Comment:Diabetes: >=200 mg/d L plus symptoms Blood Urea Nitrogen 12 8 - 18 mg/dL [facility] Creatinine 0.87 0.70 - 1.20 mg/dL [facility] Comment: Please note that the pediatric reference intervals supplied above were not validated at [facility]. Results from pediatric patients should be interpreted in conjunction to the patient's age, height and muscle mass. Sodium 142 135 - 145 mmol/L [facility] Potassium 3.8 3.5 - 5.0 mmol/L [facility] Comment: Please note: ??Patients with WBC >100,000 may have falsely elevated Potassium levels. ??For accurate Potassium quantification in these patients send serum separator tube (gold top) for subsequent determinations. ??Contact the Clinical Chemistry Laboratory if there are any questions. Chloride 102 98 - 107 mmol/L [facility] Carbon Dioxide 26 22 - 31 mmol/L [facility] Anion Gap 14 5 - 15 mmol/L [facility] Calcium 9.7 8.5 - 10.5 mg/dL [facility] Est Glomerular Filtration Rate >60 [...] the following links into your internet browser. [email or web address] Blood specimen (specimen) 08/18/2016 4:50 PM EST 08/18/2016 5:03 PM EST Narrative Resulting Agency Comment Spec In Lab Alirio Esparza MD CHEMISTRY ORDERABLE S [facility] [place] [address] documented in this encounter Visit Diagnoses Diagnosis Aortic valve stenosis, unspecified etiology documented in this encounter Care Teams Registered Art Therapist Relationship Specialty Start Date End Date Deborah Quiroga APRN PCP - General Family Medicine 03/24/16 02/04/23 documented as of this encounter
--- OUTSIDE RECORDS SUMMARY | 2024-05-23 14:10 | XMS_ITS | Encounter Summary ---
[place] [address] Care Team Providers Care Network Engineering Advisor Name Role Phone Deborah Quiroga ANURAG Primary Care Provider [phone] Reason for Visit * Reason Onset Date Comments Medical Care Coordination 07/17/2016 Encounter Details Date Type Department Care Team ([facility] Contact Info) Description 07/17/2016 Telephone [place] [phone] Alexandrea Greenwood RN Medical Care Coordination Social [...] 07/17/2016 12:07 PM EST Message received from pediatric physician assistant: Injection/Infusion Referral Call placed to [phone]). Spoke w/ Pasquale. Services to be provided for pt are: Labs @ 10am ([facility]) & Neulasta @ 11am on 07/20/16, CBC only on 07/30/16 Pasquale confirmed they would provide services to pt and I left [facility] for pt to call for appt info. Pt demographics, office note, med list and orders faxed to [facility] documented in this encounter Plan of Treatment Upcoming Encounters Date Type Department Care Team (Late st Contact Info) Description 06/05/2024 2:00 PM EST Hospital Encounter [place]patient [place] [phone] Markel Borjas MD [facility] [address] [place] [address] 06/05/2024 2:00 PM EST - 06/05/2024 3:00 PM EST Surgery [place] [phone] Makrel Borjas MD [facility] [address] [place] [address] (OSC MSURG) BONE MARROW BIOPSY AND ASPIRATION; DIAGNOSTIC (WRVU 1.44) 06/23/2024 2:00 PM EST Office Visit [place] [address]1000 Markel Borjas MD [facility] [address] [place] [address] 03/01/2025 4:15 PM EDT Office Visit Dermatology at [place] [address] [place] [address] Marek Bonilla MD [address], [place] [address] Scheduled Procedures Name Priority Associated Diagnoses Date/Ti me (OSC MSURG) BONE MARROW BIOPSY AND ASPIRATION; DIAGNOSTIC (WRVU 1.44) Anemia, in pt with longstanding neutropenia 06/05/2024 2:00 PM EST documented as of this encounter Visit Diagnoses Not on filedocumented in this encounter Care Teams Network Engineering Advisor Relationship Specialty Start Date End Date Deborah Quiroga, NUCLEAR TECHNICIAN PCP - General Family Medicine 03/24/16 02/04/23 documented as of this encounter
--- OUTSIDE RECORDS SUMMARY | 2024-05-23 14:10 | XMS_ITS | Encounter Summary ---
Author Organization [facility] [place] [address] Care Team Providers Care Roll Hand Name Role Phone Deborah Quiroga ANURAG Primary Care Provider [phone] Encounter Details Date Type Department Care Team (Late st Contact Info) Description 07/31/2016 External Results Hematology [place] [phone] Alexandrea Greenwood RN Neutropenia, unspecified type Social [...] PM EST Hospital Encounter [place]patient [place] [phone] Markel Borjas MD [facility] [address] [place] [address] 06/05/2024 2:00 PM EST - 06/05/2024 3:00 PM EST Surgery [place] [phone] Markel Borjas MD [facility] [address] [place] [address] (OSC MSURG) BONE MARROW BIOPSY AND ASPIRATION; DIAGNOSTIC (WRVU 1.44) 06/23/2024 2:00 PM EST Office Visit Hematology and Oncology at [facility] [place] [address] Markel Borjas MD [facility] [address] [place] [address] 03/01/2025 4:15 PM EDT Office Visit Dermatology at [place] [address] [facility] [place] [address] Marek Bonilla MD [address], [place] [address] Scheduled Procedures Name Priority Associated Diagnoses Date/Ti [...] type documented in this encounter Care Teams Roll Hand Relationship Specialty Start Date End Date Deborah Quiroga, TANBARK LABORER PCP - General Family Medicine 03/24/16 02/04/23 documented as of this encounter
--- OUTSIDE RECORDS SUMMARY | 2024-05-23 14:10 | XMS_ITS | Encounter Summary ---
Author Organization [facility] [place] [address] Care Team Providers Care Manager Business Systems Name Role Phone Ashley Quirogan [place] ANURAG Primary Care Provider [phone] Encounter Details Date Type Department Care Team (Late st Contact Info) Description 06/16/2016 Orders Only Hematology [place] [address]1000 Nitesh Pina Jr., MD [facility] [address] HEMATOLOGY [place] [address] Cyclical neutropenia Social History Tobacco Use Types [...] PM EST Hospital Encounter Outpatient [place] [address] Markel Borjas MD [facility] DR HEMATOLOGY [place] [address] 06/05/2024 2:00 PM EST - 06/05/2024 3:00 PM EST Surgery Outpatient [place] [address] Markel Borjas MD [facility] DR HEMATOLOGY [place] [address] (OSC MSURG) BONE MARROW BIOPSY AND ASPIRATION; DIAGNOSTIC (WRVU 1.44) 06/23/2024 2:00 PM EST Office Visit [place] [address] Markel Borjas MD [facility] [address] HEMATOLOGY [place] [address] 03/01/2025 4:15 PM EDT Office Visit Dermatology at [place] [address] [place] [address] Marek Bonilla MD [address], [place] [address] Scheduled Procedures Name Priority Associated Diagnoses Date/Ti me (OSC MSURG) BONE MARROW BIOPSY AND ASPIRATION; DIAGNOSTIC (WRVU 1.44) Anemia, in pt with longstanding neutropenia 06/05/2024 2:00 PM EST documented as of this encounter Visit Diagnoses Diagnosis Cyclical neutropenia Cyclic neutropenia documented in this encounter Care Teams Manager Business Systems Relationship Specialty Start Date End Date Deborah Quiroga APRN PCP - General Family Medicine 03/24/16 02/04/23 documented as of this encounter
--- OUTSIDE RECORDS SUMMARY | 2024-05-23 14:10 | XMS_ITS | Encounter Summary ---
Author Organization [facility] [place] [address] Care Team Providers Care Planning Manager Name Role Phone Deborah Quiroga ANURAG Primary Care Provider [phone] Encounter Details Date Type Department Care Team (Late st Contact Info) Description 07/22/2016 External Results Hematology [place] [phone] Alexandrea Greenwood RN Neutropenia, unspecified type Social [...] PM EST Hospital Encounter Outpatient [place] [address]1000 Markel Borjas MD [facility] [address] [place] [address] 06/05/2024 2:00 PM EST - 06/05/2024 3:00 PM EST Surgery Outpatient [place] [address]1000 Markel Borjas MD [facility] [address] [place] [address] (OSC MSURG) BONE MARROW BIOPSY AND ASPIRATION; DIAGNOSTIC (WRVU 1.44) 06/23/2024 2:00 PM EST Office Visit Hematology and Oncology at [facility] [place] [place] [address] Markel Borjas MD [facility] [place] [address] 03/01/2025 4:15 PM EDT Office Visit Dermatology at [place] [address] [place] [address] Marek Bonilla MD [address], [place] [address] Scheduled Procedures Name Priority Associated Diagnoses Date/Ti [...] AM EST Neutropenia, unspecified type MONONUCLEOSIS SCREEN (APD/JEANNINE/[facility]) Routine 07/20/2016 10:30 AM EST Neutropenia, unspecified type CBC (WITH DIFF) Routine 07/20/2016 10:30 AM EST Neutropenia, unspecified type documented in this encounter Results * Copper, serum (07/20/2016 10:30 AM EST) Copper (NOVEMBER) 1.09 0.75 - 1.45 EXTERNAL LAB Blood specimen (specimen) 07/20/2016 10:30 AM EST Markel Borjas MD LAB SEND OUT ORDER JODIE Performing Organization Address [facility] de Phone Number EXTERNAL LAB * CMV PCR, Quantitative (07/20/2016 10:30 AM EST) CMV PCR,Quantitati ve undetected EXTERNAL LAB Blood specimen (specimen) 07/20/2016 10:30 AM EST Markel Borjas MD MOLECULAR ORDERABL ES Performing Organization Address [facility] de Phone Number EXTERNAL LAB * Mononucleosis Screen (07/20/2016 10:30 AM EST) Mononucleosis Screen neg neg - neg EXTERNAL LAB Blood specimen (specimen) 07/20/2016 10:30 AM EST Markel Borjas MD IMMUNOLOGY ORDERAB LES Performing Organization Address [facility] de Phone Number EXTERNAL LAB * (ABNORMAL) CBC (with Diff) (07/20/2016 10:30 AM EST) White Blood Cell 1.61(A) 4.4 - 10.8 EXTERNAL LAB Hemoglobin 12.3 12.0 - 16.0 EXTERNAL LAB Hematocrit 37.2 36.0 - 46.0 EXTERNAL LAB Platelet 229 130 - 400 EXTERNAL LAB Blood specimen (specimen) 07/20/2016 10:30 AM EST Markel Borjas MD HEMATOLOGY ORDERAB LES Performing Organization Address [facility] de Phone Number EXTERNAL LAB documented in this encounter Visit Diagnoses Diagnosis Neutropenia, unspecified type documented in this encounter Care Teams Planning Manager Relationship Specialty Start Date End Date Deborah Quiroga APRN PCP - General Family Medicine 03/24/16 02/04/23 documented as of this encounter
--- OUTSIDE RECORDS SUMMARY | 2024-05-23 14:10 | XMS_ITS | Encounter Summary ---
[place] [address] Care Team Providers Care Nursing Secretary Name Role Phone Deborah Quiroga ANURAG Primary Care Provider [phone] Encounter Details Date Type Department Care Team [...] [facility] [phone] Date: 09/11/16 Patient Name: Purnima Thacker : 1955 Diagnosis: Neutropenia Referral to [site]: [facility] Orders: ? Growth factor: [x] Neulasta 6mg SQ injection x 1 on 09/16/16 Signature: Markel Borjas MD beeper # [id number] Co-signature [if needed]: documented in this encounter Plan of Treatment Upcoming Encounters Date Type Department Care Team (Late st Contact Info) Description 06/05/2024 2:00 PM EST Hospital Encounter [place] [address] Markel Borjas MD [facility] [place] [address] 06/05/2024 2:00 PM EST - 06/05/2024 3:00 PM EST Surgery [place] [address]1000 Markel Borjas MD [facility] [place] [address] (OSC MSURG) BONE MARROW BIOPSY AND ASPIRATION; DIAGNOSTIC (WRVU 1.44) 06/23/2024 2:00 PM EST Office Visit Hematology [place] [address]-1000 Markel Borjas MD [facility] [address] [place] [address] 03/01/2025 4:15 PM EDT Office Visit Dermatology at [place] [address] [place] [address] Marek Bonilla MD [address], [place] [address] Scheduled Procedures Name Priority Associated Diagnoses Date/Ti [...] M ? (Age): 1955(61y) Med Rec#: ? [id number] ?Sex: ?M ? Site Loc: ? [facility] ?Ht / Wt: ??(cm)/ (kg) ? Pt. Loc: ?OR ? Study Date: ?? 09/21/2016 ?Pt. Type: Tape: ? Referring: Alirio Francisco Reading: Henrik Yarbrough ([id number]) Medical Support Assistant: Jacobo Patel ([id number]) Interpreting Fellow: Jacobo Patel ([id number]) Diagnosis: *Aortic valve disorders (424.1) CPT Codes: *Echo GAVINO Full (14027) Indication: ?? AVR for severe Rhythm: ? [...] ? Mid-Inferior ?Normal ? Mid-Inferoseptal ?Normal ? [place]-Septal ? Normal ? [place]-Anterior ? Normal ? [place]-Lateral ?Normal ? [place]-Inferior ? Normal ? [place]-Tip ?Normal ? This report has been electronically signed by: Henrik Yarbrough M.D. ? 09/22/2016 08:30:41 Images reviewed and interpretation verified [facility] Procedure Note Henrik Yarbrough MD - 09/22/2016 Procedure: Transesophageal Echocardiogram Patient: ANDREW Mejias (Age): 1955(61y) [facility] Rec#: [id number] Sex: M Site Loc: [facility] Ht / Wt: (cm)/ (kg) Pt. Loc: OR Study Date: 09/21/2016 Pt. Type: Tape: Referring: Alirio Francisco Reading: Henrik Yarbrough ([id number]) Medical Support Assistant: Jacobo Patel ([id number]) Interpreting Fellow: Jacobo Patel ([id number]) Diagnosis: *Aortic valve disorders (424.1) CPT Codes: *Echo GAVINO Full (09946) Indication: AVR for severe Rhythm: Sinus SUMMARY: [...] Normal Mid-Posterolateral Normal Mid-Inferior Normal Mid-Inferoseptal Normal [place]-Septal Normal [place]-Anterior Normal [place]-Lateral Normal [place]-Inferior Normal [place]-Tip Normal This report has been electronically signed by: Henrik Yarbrough M.D. 09/22/2016 08:30:41 Images reviewed and interpretation verified [facility] Unknown ECHO ORDERABLES documented in this encounter Visit Diagnoses Not on filedocumented in this encounter Care Teams Nursing Secretary Relationship Specialty Start Date End Date Deborah Quiroga APRN PCP - General Family Medicine 03/24/16 02/04/23 documented as of this encounter
--- OUTSIDE RECORDS SUMMARY | 2024-05-23 14:10 | XMS_ITS | Encounter Summary ---
Author Organization [place] [address] Care Team Providers Care Programmer Business Name Role Phone Deborah Quiroga APRN Primary Care Provider [phone] Encounter Details Date Type Department Care Team (Late st Contact Info) Description 08/18/2016 4:20 PM EST Clinical [place] [address]1000 Social History Tobacco Use Types Packs/Day Years [...] PM EST Hospital Encounter [place]patient [place] [address] Markel Borjas MD [facility] [address] [place] [address] 06/05/2024 2:00 PM EST - 06/05/2024 3:00 PM EST Surgery [place]patient [place] [address] Markel Borjas MD [facility] [address] [place] [address] (OSC MSURG) BONE MARROW BIOPSY AND ASPIRATION; DIAGNOSTIC (WRVU 1.44) 06/23/2024 2:00 PM EST Office Visit Hematology [place] [address] Markel Borjas MD [facility] [address] [place] [address] 03/01/2025 4:15 PM EDT Office Visit Dermatology at [place] [address] [place] [address] Marek Bonilla MD [address], [place] [address] Scheduled Procedures Name Priority Associated Diagnoses Date/Ti me (OSC MSURG) BONE MARROW BIOPSY AND ASPIRATION; DIAGNOSTIC (WRVU 1.44) Anemia, in pt with longstanding neutropenia 06/05/2024 2:00 PM EST documented as of this encounter Visit Diagnoses Not on filedocumented in this encounter Care Teams Programmer Business Relationship Specialty Start Date End Date Deborah Quiroga APRN PCP - General Family Medicine 03/24/16 02/04/23 documented as of this encounter
--- OUTSIDE RECORDS SUMMARY | 2024-05-23 14:10 | XMS_ITS | Encounter Summary ---
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 Services to be provided for pt are: [facility] 09/16/16 Mahsa confirmed they would provide services to pt and would contact with appointment time. Pt aware to expect the phone call ??orders faxed to [phone]). documented in this encounter Plan of Treatment Upcoming Encounters Date Type Department Care Team (Late st Contact Info) Description 06/05/2024 2:00 PM EST Hospital Encounter Outpatient [place] [address] Markel Borjas MD [facility] DR HEMATOLOGY [place] [address] 06/05/2024 2:00 PM EST - 06/05/2024 3:00 PM EST Surgery Outpatient [place] [address]1000 Markel Borjas MD [facility] DR HEMATOLOGY [place] [address] (OSC MSURG) BONE MARROW BIOPSY AND ASPIRATION; DIAGNOSTIC (WRVU 1.44) 06/23/2024 2:00 PM EST Office Visit Hematology [place] [address]1000 Markel Borjas MD [facility] HEMATOLOGY [place] [address] 03/01/2025 4:15 PM EDT Office Visit Dermatology at [address] [place] [address] Marek Bonilla MD [address] DERMATOLOGY [place], [place] [address] Scheduled Procedures Name Priority Associated Diagnoses Date/Ti me (OSC MSURG) BONE MARROW BIOPSY AND ASPIRATION; DIAGNOSTIC (WRVU 1.44) Anemia, in pt with longstanding neutropenia 06/05/2024 2:00 PM EST documented as of this encounter Visit Diagnoses Not on filedocumented in this encounter Care Teams Smasher Relationship Specialty Start Date End Date Deborah Quiroga APRN PCP - General Family Medicine 03/24/16 02/04/23 documented as of this encounter
--- OUTSIDE RECORDS SUMMARY | 2024-05-23 14:10 | XMS_ITS | Encounter Summary ---
[place] [address] Care Team Providers Care Electric Meter Tester Shop Name Role Phone Deborah Quiroga ANURAG Primary Care Provider [phone] Reason for Visit * Reason Onset Date Comments Medical Care Coordination 07/31/2016 Encounter Details Date Type Department Care Team (Late st Contact Info) Description 07/31/2016 Telephone Hematology [place] [address]1000 Alexandrea Greenwood RN Medical Care Coordination Social [...] 08/04/15 RN spoke with Aydee of the [facility] lab who states they can draw pt's cbc on 08/04/15, RN faxed lab req to [phone] at Aydee's request. RN instructed pt on Dr. Borjas's direction above. Pt verbalized understanding. documented in this encounter Plan of Treatment Upcoming Encounters Date Type Department Care Team (Late st Contact Info) Description 06/05/2024 2:00 PM EST Hospital Encounter [place] [address]1000 Markel Borjas MD [facility] [address] [place]EMATOLOGY [place] [address] 06/05/2024 2:00 PM EST - 06/05/2024 3:00 PM EST Surgery [place] [address]1000 Markel Borjas MD [facility] [address] [place]EMAT[place] [address] (OSC MSURG) BONE MARROW BIOPSY AND ASPIRATION; DIAGNOSTIC (WRVU 1.44) 06/23/2024 2:00 PM EST Office Visit Hematology [place] [address]1000 Markel Borjas MD [facility] [address] [place]EMATOLOG[place] [address] 03/01/2025 4:15 PM EDT Office Visit Dermatology at [address] [place] [address] Marek Bonilla MD [address] [place] [address] Scheduled Procedures Name Priority Associated Diagnoses Date/Ti me (OSC MSURG) BONE MARROW BIOPSY AND ASPIRATION; DIAGNOSTIC (WRVU 1.44) Anemia, in pt with longstanding neutropenia 06/05/2024 2:00 PM EST documented as of this encounter Visit Diagnoses Not on filedocumented in this encounter Care Teams Electric Meter Tester Shop Relationship Specialty Start Date End Date Deborah Quiroga APRN PCP - General Family Medicine 03/24/16 02/04/23 documented as of this encounter
--- OUTSIDE RECORDS SUMMARY | 2024-05-23 14:10 | XMS_ITS | Encounter Summary ---
Author Organization [facility] Address [facility] [place] [address] Care Team Providers Care Radio Electronics Officer Name Role Phone Deborah Quiroga APRN Primary Care Provider [phone] Encounter Details Date Type Department Care Team (Late st Contact Info) Description 07/17/2016 9:00 AM EST Office Visit [place] [address] Markel Borjas MD [facility] [address] HEMATOLOGY AND ONCOLOGY [address] Neutropenia, unspecified type Social History Tobacco Use [...] 07/17/2016 9:00 AM EST Hematology Outpatient Clinic [facility] [...] TOUCH PREP, CLOT SECTION, CORE ??BIOPSY); [OSR# [id number], COLLECTED 06/23/2016, 19 SLIDES]: ?1. 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 Labs will be drawn at [facility] next week Imaging As above [...] leukopenia. Will consi kanwal talking to pt's federal law clerk about a switch from ACEI to ARB [...] [facility] [place] [place] [facility] [place] [phone] Date: 07/17/16 Patient Name: Purnima Thacker : 1955 Diagnosis: neutropenia Referral to [site]: [facility] Orders: ? Labs: Fax results to . [x] Draw CBC, copper level, CMV PCR, mononucleosis screen on 07/20 Repeat CBC on 07/30 (to measure response of WBC after Neulasta) ? Growth factor: [x] Neulasta 6mg SQ injection x 1 on 07/20/2016 Signature: Markel Borjas MD beeper # [id number] documented in this encounter Plan of Treatment Upcoming Encounters Date Type Department Care Team (Late st Contact Info) Description 06/05/2024 2:00 PM EST Hospital Encounter Out[place] [phone] Markel Borjas MD [facility] HEMATOLOGY AND ONCOLOGY [address] 06/05/2024 2:00 PM EST - 06/05/2024 3:00 PM EST Surgery [place] [address] Markel Borjas MD [facility] HEMATOLOGY AND ONCOLOGY [address] (OSC MSURG) BONE MARROW BIOPSY AND ASPIRATION; DIAGNOSTIC (WRVU 1.44) 06/23/2024 2:00 PM EST Office Visit [place] [address] Markel Borjas MD [facility] HEMATOLOGY AND ONCOLOGY [address] 03/01/2025 4:15 PM EDT Office Visit Dermatology at [place] [address] [place] [phone] Marek Bonilla MD [address], [place] [address] Scheduled Procedures Name Priority Associated Diagnoses Date/Ti me (OSC MSURG) BONE MARROW BIOPSY AND ASPIRATION; DIAGNOSTIC (WRVU 1.44) Anemia, in pt with longstanding neutropenia 06/05/2024 2:00 PM EST documented as of this encounter Results * (ABNORMAL) CBC (with Diff) (07/31/2016 9:40 AM EST) Pathologist [facility] [place] White Blood Cell 2.23(EXTER NAL/ABN) 4.4 - [...] Screen (07/20/2016 10:30 AM EST) Pathologist [facility] [place] Mononucleosis Screen neg neg - neg EXTERNAL LAB Blood specimen (specimen) 07/20/2016 10:30 AM EST Markel Borjas MD IMMUNOLOGY ORDERAB LES Performing Organization Address [facility] Co de Phone Number EXTERNAL LAB * Copper, serum (07/20/2016 10:30 AM EST) Copper (NOVEMBER) 1.09 0.75 - 1.45 EXTERNAL LAB Blood specimen (specimen) 07/20/2016 10:30 AM EST Markel Borjas MD LAB SEND OUT ORDER JODIE Performing Organization Address [facility] Co de Phone Number EXTERNAL LAB * CMV PCR, Quantitative (07/20/2016 10:30 AM EST) Pathologist [facility] [place] CMV PCR,Quantitati ve undetected EXTERNAL LAB Blood specimen (specimen) 07/20/2016 10:30 AM EST Markel Borjas MD MOLECULAR ORDERABL ES Performing Organization Address [facility] de Phone Number EXTERNAL LAB * (ABNORMAL) CBC (with Diff) (07/20/2016 10:30 AM EST) Pathologist [facility] [place] White Blood Cell 1.61(A) 4.4 - 10.8 EXTERNAL LAB Hemoglobin 12.3 12.0 - 16.0 EXTERNAL LAB Hematocrit 37.2 36.0 - 46.0 EXTERNAL LAB Platelet 229 130 - 400 EXTERNAL LAB Blood specimen (specimen) 07/20/2016 10:30 AM EST Markel Borjas MD HEMATOLOGY ORDERAB LES Performing Organization Address [facility] Co de Phone Number EXTERNAL LAB documented in this encounter Visit Diagnoses Diagnosis Neutropenia, unspecified type documented in this encounter Care Teams Radio Electronics Officer Relationship Specialty Start Date End Date Deborah Quiroga APRN PCP - General Family Medicine 03/24/16 02/04/23 documented as of this encounter
--- OUTSIDE RECORDS SUMMARY | 2024-05-23 14:10 | XMS_ITS | Encounter Summary ---
Author Organization Replaced By [facility] Address [facility] [place] [address] Care Team Providers Care Computer Repair Technician Name Role Phone Ashley Quirogan Cornelius ANURAG Primary Care Provider [phone] Encounter Details Date Type Department Care Team (Late st Contact Info) Description 08/11/2016 Telephone Hematology [place] [phone] Markel Borjas MD [facility] [address] HEMATOLOGY [place] [address] Social History Tobacco Use Types Packs/Day Years [...] PM EST Hospital Encounter [place]patient [place] [phone] Markel Borjas MD [facility] DR HEMATOLOGY [place] [address] 06/05/2024 2:00 PM EST - 06/05/2024 3:00 PM EST Surgery [place] [phone] Markel Borjas MD [facility] DR HEMATOLOGY [place] [address] (OSC MSURG) BONE MARROW BIOPSY AND ASPIRATION; DIAGNOSTIC (WRVU 1.44) 06/23/2024 2:00 PM EST Office Visit [place]ology [place] [phone] Markel Borjas MD [facility] [address] HEMATOLOGY [place] [address] 03/01/2025 4:15 PM EDT Office Visit Dermatology at [place] [address] [place] [address] Marek Bonilla MD [address], [place]MATOLOGY [place], [place] [phone] Scheduled Procedures Name Priority Associated Diagnoses Date/Ti me (OSC MSURG) BONE MARROW BIOPSY AND ASPIRATION; DIAGNOSTIC (WRVU 1.44) Anemia, in pt with longstanding neutropenia 06/05/2024 2:00 PM EST documented as of this encounter Visit Diagnoses Not on filedocumented in this encounter Care Teams Computer Repair Technician Relationship Specialty Start Date End Date Deborah Quiroga APRN PCP - General Family Medicine 03/24/16 02/04/23 documented as of this encounter
--- OUTSIDE RECORDS SUMMARY | 2024-05-23 14:10 | XMS_ITS | Encounter Summary ---
[place] [address] Care Team Providers Care Film Processing Utility Worker Name Role Phone Ashley Quirogazac Shields APRN Primary Care Provider [phone] Reason for Visit * Auth/Cert Specialty Diagnoses / Procedures Referred By Crispin t Referred To Contact Diagnoses Aortic stenosis Procedures PRO REPLACE AORT VALV, PROSTH VALV @REPLACE AORTIC VALVE, OPEN, W\CPB, W\PROSTHETIC VALVE (WRVU 41.32) Referral ID Status Reason Start Date Expiration Date Visits Re quested Visits Authorized [id number] 1 1 Encounter Details Date Type Department Care Team (Late st Contact Info) Description 09/21/2016 7:30 AM EST - 09/21/2016 12:04 PM EST Surgery [place] [address] Alirio Esparza MD @REPLACE AORTIC VALVE, OPEN, [...] Patient Age: 61 y.o. Birthdate: 1955 Language: Mohawk Race: White Ethnicity: Not nor Admit Date: 09/21/2016 Discharge Date: 09/25/2016 Attending Physician: Alirio Esparza MD Follow-up Recommendations for Providers: Please continue routine management of cardiovascular risk factors including blood pressure, lipids,glucose, etc. Please note any changes to medications. Patient to follow-up with PCP, Deborah Quiroga APRN, in 1-2 weeks. Patient to follow-up with Senior International Tax Manager, Dr. Antelmo Burrell, in two weeks. Patient to follow-up with Cardiac Surgery, Dr. Alirio Esparza, to be scheduled for before 10/19/2016, with CXR, EKG, and Echo. Inpatient Provider Contact Information: [facility] [place] [facility] [place] [facility] [place] [address] FAX [phone] Discharge Diagnoses (Hospital Problems) Primary Diagnoses: Secondary [...] 41.32) performed by Alirio Esparza MD at [facility] MAIN OR ??? Pro aortoplas for supravalv sten N/A 09/21/2016 @AORTOPLASTY FOR SUPRAVALVULAR STENOSIS (WRVU 29.33) performed by Alirio Esparza MD at [facility] MAIN OR Prior To Admission [...] Alirio Esparza and/or the Cardiac Surgery Physician Garnett Machine Operator Helper Team may be reached at . Antibiotic prophylaxis: You will need to take antibiotics prior to many invasive tests and treatments, such as dental cleaning, which should be done every 6 months. Your primary care physician or your dentist can prescribe this medication. Please refer to the card with the [place] [employer] Guidelines for more information. You have been provided with 3 copies of this card. Keep one for your self. Give one to your primary care physician and one to your dentist. Please refer to the [place] Heart [employer] Guidelines for more information. Good [...] Dr. Alirio Jones. You may use a Doon Track or treadmill but avoid any pulling [...] should resume a low fat, low cholesterol, [place] Heart Association Diet. Driving: No driving until [...] AM Markel Borjas MD [facility] [phone] Future Orders Complete By Expires Echocardiogram Transthoracic([place]) [HXX915 Custom] 10/18/2016 (Approximate) 09/18/2017 Process Instructions: If the Echocardiogram is to be PERFORMED in a DH location other than [place]--STOP and order [id number], Echocardiogram South/External. Scheduling Instructions: Questions: Is a Bubble Study requested?: No Does the patient have Congenital Heart Disease?: No Does patient require sedation?: None GA rationale: Should this service be billed to the research sponsor?: EKG 12 Lead [EKG1 Custom] 10/18/2016 (Approximate) 09/25/2017 Process Instructions: Scheduling Instructions: Questions: Which DH location will this be performed?: [place] Is a rhythm strip needed?: No If EKG Reason is Pre-op Evaluation, indicate diagnosis for surgery.: Should this service be billed to the research sponsor?: XR Chest PA & Lateral (Generic) [[id number] Custom] 10/18/2016 (Approximate) 09/25/2017 Process Instructions: Scheduling Instructions: Questions: Where will study be performed?: [facility]- Radiology Portable exam?: No Reason for exam and clinical history: s/p AVReplacement, patch annuloplasty 1 month f/u Other pertinent information: Stat read required?: Date of injury if applicable: Requested Time: Referral to Cardiac Rehab [KQF362 Custom] As directed Process Instructions: If no progress note charted, please enter Clinical details in comments. Scheduling Instructions: Questions: My question or request is: s/p AVR. Cardiac rehab at [facility] Referral to Home Health - at DISCHARGE [OCV4228 CPT(R)] As directed Process Instructions: Scheduling Instructions: Comments: DOCUMENTATION FOR VNA SERVICES (INCLUDING THOSE PATIENTS WITH MEDICARE COVERAGE REQUIRING HOME VNA SERVICES AND/OR HOSPICE SERVICES) PATIENT'S LOCATION: Purnimak[place] Gallego[address] [address] (home) No relevant phone numbers on file. Jet Ski Mechanic's Name: self In discussion with the attending physician, it is certified that this patient is under their care and that they, or a Nurse Practitioner, or Physician Garnett Machine Operator Helper who is working directly with them, hada [...] for services as follows: HOME HEALTH AGENCY: [facility] PHONE: [phone] FAX: [phone] RN orders: Cardiopulmonary assessment, incisional assessment, assess [...] issues please call the Cardiac SurgeryOffice at [phone] FOR MEDICARE ONLY: In discussion with the [...] [facility] [place] [facility] [place] [facility] [place] [address] FAX [phone] Date: 09/25/2016 CC: ANURAG Alford Caryn E, APRN [address] [place] [address] documented in this encounter Discharge Instructions * [...] Alirio Esparza and/or the Cardiac Surgery Physician Garnett Machine Operator Helper Team may be reached at . Antibiotic prophylaxis: You will need to take antibiotics prior to many invasive tests and treatments, such as dental cleaning, which should be done every 6 months. Your primary care physician or your dentist can prescribe this medication. Please refer to the card with the [place] Heart [employer] Guidelines for more information. You have been provided with 3 copies of this card. Keep one for your self. Give one to your primary care physician and one to your dentist. Please refer to the [place] Heart Association Guidelines for more information. Good [...] Dr. Alirio Jones. You may use a Doon Track or treadmill but avoid any pulling [...] should resume a low fat, low cholesterol, [place] Heart Association Diet. Driving: No driving until [...] soon as possible. 2. Cardiology, Dr. Antelmo uBrrell, in two weeks. 3. You will return [...] PM EST Cardiac Surgery Progress Note: ID: [id number] S/p AVR, patch aortoplasty POD#2. PMH of [...] Gas) No results found for: PHART, PO2ART, [id number] Assessment/Plan: TPW out this am. (+) BM. [...] Signed: Crispin Aranda PA-C 09/24/2016 Team pager: [phone] after 5pm [facility] Section of Cardiac Surgery * Leonor Henson S, PRODUCT SAFETY TECHNICIAN - 09/23/2016 10:48 AM EST Cardiac Surgery Progress Note: ID: [id number] s/p AVR, patch aortoplasty POD#2. PMH of [...] Gas) No results found for: PHART, PO2ART, [id number] Assessment/Plan: s/p AVR, patch aortoplasty POD#2. PMH of Neutropenia, HLD, HTN, Depression, obesity, . Transferred from [facility] yesterday and doing well. Pathway. Will [...] AM EST Cardiac Surgery Progress Note: ID: [id number] s/p AVR, patch aortoplasty POD#1. PMH of [...] NT, ND, soft. Ext: Moves all extremities. Halma, well perfused. Incisions: C/D/I Tubes/Lines/Drains: PIV, leanna, [...] Outcome (s) achieved Date Met: 09/25/16 09/25/16 0109 Coping/Psychosocial Plan Of Care Reviewed With patient [...] services Lalitha Cohen [facility] Pager: [phone] Inpatient Physical Therapy Patient status, treatment interventions, and goals discussed with student. I am in agreement with all details and associated flowsheet rows as documented and was present for all aspects of the patient treatment session. Nery Jaramillo, CANDY Pager [phone] Problem: Acute Rehab Services Goal & Intervention Plan Goal: Bed Mobility Goal Stand Alone Therapy Goal Outcome: Ongoing (Interventions Implemented as Appropriate) 09/22/16 1611 09/25/16 0947 Bed Mobility Goal Bed Mobility Goal, Time to Achieve 4 days -- Bed Mobility Goal, Activity Type scoot/bridge;supine to sit/sit to supine -- Bed Mobility Goal, [place] Level independent -- Bed Mobility Goal, Additional [...] Achieve 4 days -- Gait Training Goal, [place] Level independent -- Gait Training Goal, Distance [...] assist, home with home health [facility] Pager: [phone] Inpatient Physical Therapy Patient status, treatment interventions, and goals discussed with student. I am in agreement with all details and associated flowsheet rows as documented and was present for all aspects of the patient treatment session. Nery Jaramillo, FOOD SERVICE TEAM MEMBER Pager [phone] Problem: Acute Rehab Services Goal & Intervention Plan Goal: Bed Mobility Goal Stand Alone Therapy Goal Outcome: Ongoing (Interventions Implemented as Appropriate) 09/22/16161009/23/161411 Bed Mobility Goal Bed Mobility Goal, Time to Achieve 4 days -- Bed Mobility Goal, Activity Type scoot/bridge;supine to sit/sit to supine -- Bed Mobility Goal, [place] Level independent -- Bed Mobility Goal, Additional [...] Achieve 4 days -- Gait Training Goal, [place] Level independent -- Gait Training Goal, Distance [...] days -- Transfer Training Goal, Activity Type swy-fm-xannr/shtqh-gp-vqp;fvk-fz-wxguf/trzdt-xc-jvr -- Transfer Train Goal, [place] Level independent -- Transfer Training Goal, Additional [...] Another Service: (cardiac rehab) NICOLE HERNANDEZ, PT Pager:[phone] Inpatient Physical Therapy Problem: Acute Rehab Services Goal & Intervention Plan Goal: Bed Mobility Goal Stand Alone Therapy Goal Outcome: Ongoing (Interventions Implemented as Appropriate) 09/22/161610 Bed Mobility Goal Bed Mobility Goal, Time to Achieve 4 days Bed Mobility Goal, Activity Type scoot/bridge;supine to sit/sit to supine Bed Mobility Goal, [place] Level independent Bed Mobility Goal, Additional Goal able to abide sternal precautions during transfers Goal: Gait Training Goal Stand Alone Therapy Goal Outcome: Ongoing (Interventions Implemented as Appropriate) 09/22/161610 Gait Training Goal Gait Training Goal, Date Established 09/22/16 Gait Training Goal, Time to Achieve 4 days Gait Training Goal, [place] Level independent Gait Training Goal, Distance to Achieve ascend and descends 2 steps independently Goal: Goal Transfer Training Stand Alone Therapy Goal Outcome: Ongoing (Interventions Implemented as Appropriate) 09/22/161610 Goal Transfer Training Transfer Training Goal, Time to Achieve 4 days Transfer Training Goal, Activity Type yts-ib-mhvvz/wejhr-ml-soq;egh-dv-nxyeh/odgkm-hh-alo Transfer Train Goal, [place] Level independent Transfer Training Goal, Additional Goal [...] of completing AD's at home, chooses her qiymir-xr-btp, Martha Thacker (home) for her DPOAH, 2nd choice in friend, Nitesh Rad, [place], [place] Current Coping/Education/Information Needs: patient sitting [...] close by, Rashad & Raymond, and her ejcclp-sw-teo Martha Thacker who she has chosen to be her DPOAH. Also has a friend Nitesh Leroy who lives in [place], [place], also her DPOAH choice. Behavioral Health History: none on file in e[facility] Substance Use/Abuse: none on file in [facility] Other Pertinent/Service Specific Information: none Health/Prescription Coverage: Primary Insurance: [employer] Secondary Insurance: none Prescription Coverage: yes, per patient no issues Preferred Pharmacy: ?? Other: none Primary Care Provider: Deborah Quiroga, PRODUCT SAFETY TECHNICIAN [phone] Patient/Caregiver Goals of Treatment: per medical team recommendations at discharge for CT surgery Potential Needs for Transition of Care: Rehab/SNF: TBD Home Health: TBD DME: no Dialysis: no Community Resources: non3 Transportation: ride home with a friend Other: none Anticipated Barriers to Discharge/Special Considerations: none anticipated at this time Plan: patient will need VNA services at discharge. The patient/data entry representative has been provided a list of Home Health Agencies/DME vendors which servetheir preferred geographic area. A letter describing our affiliations was reviewed with them and they were educated about their right to choose where referrals are placed. Patient requests referral to: [facility]. PHONE: [phone] FAX: [phone] Expected date of discharge: Fri/Sat? CM called VNA to confirm referral, talked with VALDO Bunn/intake who stated she was familiar w/patient & would monitor her progress through curaspan. Referral routed to the Engineering Manager Electronics for matching with agency/vendor and to provide any required information. A member of the Care Management team will continue to monitor progress, follow for continuity of care and assist with transition of care planning. Amanda Moreno RN Pager: [phone] * Op Note - Alirio Esparza MD - 09/21/2016 12:53 PM EST 09/23/2016 Purnima Thacker 1955 [id number] Preoperative Diagnosis: Symptomatic aortic stenosis Postoperative Diagnosis: Symptomatic aortic stenosis Procedure: Aortic valve replacement: Bovine Pericardial 25 mm Surgeon: Alirio Esparza M.D. Garnett Machine Operator Helper: Philip BALL Anesthesia: General endotracheal anesthesia Drains: [...] applied. The patient was transported to the [facility] on levo. All counts were correct. [...] Operative Note Patient Name: Purnima Thacker : [id number] MR#: [id number] Case Date: 09/21/2016 Surgeon: Surgeon(s) and Role: * Alirio Esparza MD - Primary * Nico Palacios PA - Physician Garnett Machine Operator Helper Preoperative diagnosis: Postoperative diagnosis: Procedure(s) (LRB): @REPLACE [...] PM EST Hospital Encounter Outpatient [place] [phone] Markel Borjas MD [address] [facility] [place] [address] 06/05/2024 2:00 PM EST - 06/05/2024 3:00 PM EST Surgery Outpatient [place] [phone] Markel Borjas MD [facility] [facility] [address] [place] [address] (OSC MSURG) BONE MARROW BIOPSY AND ASPIRATION; DIAGNOSTIC (WRVU 1.44) 06/23/2024 2:00 PM EST Office Visit Hematology [place] [phone] Markel Borjas MD [address] [facility] [address] [place] [address] 03/01/2025 4:15 PM EDT Office Visit Dermatology at [place] [address] [place] [id number] Marek Bonilla MD [address], [place] DERMATOLOG[place], [place] [id number] Scheduled Orders Name Type Priority Associated Diagnoses [...] IMPLANTABLE DEVICES SCAN 09/26/2016 12:00 AM EST RUG TOUCH UP PAINTER SCAN 09/26/2016 12:00 AM EST POTASSIUM Routine [...] Routine 09/22/2016 4:00 AM EST CARDIAC ENZYMES ([facility]) Routine 09/22/2016 4:00 AM EST CREATININE Routine [...] SCAN EXT O RDR/RSLT * SCAN DOC: RUG TOUCH UP PAINTER (09/26/2016 12:00 AM EST) Anatomical Region Laterality Modality Other Narrative 09/26/2016 12:00 AM EST Ordered by an unspecified provider. Scanning Provider MEDIA MGR SCAN EXT O RDR/RSLT * Potassium (09/25/2016 4:32 AM EST) Pathologist [facility] Potassium 4.4 3.5 - 5.0 mmol/L [...] CHEMISTRY ORDERABLE S [facility] [place] [address] * (ABNORMAL) Differential, Automated (09/24/2016 9:56 AM EST) Neutrophil % 76.8 % [facility] Neutrophil Absolute 7.79(H) 1.70 - 6.10 x10(3)/mc L [facility] Lymph % 11.1 % [facility] Lymphocytes Abs 1.1 0.9 - 3.2 x10(3)/mc L [facility] Monocyte % 8.5 % [facility] Monocyte Abs 0.9 0.3 - 0.9 x10(3)/ L [facility] Eos % 0.5 % [facility] Eosinophils Abs 0.0 0.0 - 0.4 x10(3)/ L [facility] Basophil % 0.2 % [facility] Baso [...] HEMATOLOGY ORDERABL ES [facility] [place] [address] * (ABNORMAL) Hemogram (09/24/2016 9:56 AM EST) White Blood Cell 10.1(H) 4.0 - 9.5 x10(3)/ L [facility] Red Blood Cell 2.87(L) 4.00 - 5.21 x10(6)/ L [facility] Hemoglobin 9.4(L) [...] Deviation 45.0 37.0 - 46.0 fL [facility] RDW coefficient of variation 12.6 11.5 - 14.1 % [facility] Mean Platelet Volume 9.4 7.6 - 12.9 fL [facility] NRBC% auto 1.1 % [facility] NRBC Absolute 0.110(H) 0.000 - 0.000 x10(3)/mc L [facility] Blood specimen (specimen) 09/24/2016 9:56 AM EST 09/24/2016 10:04 AM EST Narrative Resulting Agency Comment Spec In Lab Alirio Esparza MD HEMATOLOGY ORDERABL ES [facility] [place] [address] * (ABNORMAL) Basic Metabolic Panel (non-fasting) (09/24/2016 [...] the following links into your internet browser. [email or web address] Blood specimen (specimen) 09/24/2016 9:56 AM EST 09/24/2016 10:04 AM EST Narrative Resulting Agency Comment Spec In Lab Alirio Esparza MD CHEMISTRY ORDERABLE S [facility] [place] [address] * XR Chest PA & Lateral (Generic) [...] CHEMISTRY ORDERABLE S [facility] [place] [address] * POCT Glucose (09/22/2016 8:17 AM EST) Glucose, POC 131 65 - 199 mg/dL [facility] Comment: Supplemental ranges: <140 mg/dL before meals <180 mg/dL all other times of the day Blood specimen (specimen) 09/22/2016 8:17 AM EST 09/22/2016 8:17 AM EST Alirio Esparza MD POINT OF CARE TEST ORDERABLES Performing Organization Address [facility] Co de Phone Number [facility] [place] [address] * POCT Glucose (09/22/2016 4:01 AM EST) Pathologist [facility] Glucose, POC 135 65 - 199 mg/dL [facility] Comment: Supplemental ranges: <140 mg/dL before meals <180 mg/dL all other times of the day Blood specimen (specimen) 09/22/2016 4:01 AM EST 09/22/2016 4:01 AM EST Alirio Esparza MD POINT OF CARE TEST ORDERABLES Performing Organization Address [facility] de Phone Number [facility] [place] [address] * Scan, Peripheral Blood (09/22/2016 4:00 AM EST) [facility] Plat estimate Normal [facility] RBC Morphology Abnormal [facility] Macrocyte 1-5 /HPF [facility] Plat, Giant Less than 1 /HPF [facility] Blood specimen (specimen) 09/22/2016 4:00 AM EST 09/22/2016 4:34 AM EST Narrative Resulting Agency Comment Spec In Lab Alirio Esparza MD HEMATOLOGY ORDERABL ES Performing Organization Address [facility] Co de Phone Number [facility] [place] [address] * Electrolytes panel (09/22/2016 4:00 AM EST) [facility] Sodium 145 135 - 145 mmol/L [facility] [...] CHEMISTRY ORDERABLE S [facility] [place] [address] * (ABNORMAL) Differential, Automated (09/22/2016 4:00 AM EST) Neutrophil % 70.9 % [facility] Neutrophil Absolute 5.33 1.70 - 6.10 x10(3)/mc L [facility] Lymph % 9.1 % [facility] Lymphocytes Abs 0.7(L) 0.9 - 3.2 x10(3)/mc L [facility] Monocyte % 18.0 % [facility] Monocyte Abs 1.4(H) 0.3 - 0.9 x10(3)/mc L [facility] Eos % 0.0 % [facility] Eosinophils Abs 0.0 0.0 - 0.4 x10(3)/mc L [facility] Basophil % 0.1 % [facility] Baso Absolute 0.0 0.0 - 0.1 x10(3)/mc L [facility] Immature Gran % 1.90 % [facility] Comment: Immature granulocytes(IG's)percentage and absolute count will include metamyelocytes, myelocytes, and promyelocytes. Blood smears from CBCs yielding IG's will be scanned manually for concordance. If this scan disagrees with the automated IG or if promyelocytes are noted, a manual differential will be performed. Immature Gran Absolute 0.14(H) 0.00 - 0.04 x10(3)/mc L [facility] Blood specimen (specimen) 09/22/2016 4:00 AM EST 09/22/2016 4:34 AM EST Narrative Resulting Agency Comment Spec In Lab Alirio Esparza MD HEMATOLOGY ORDERABL ES [facility] [place] [address] * (ABNORMAL) Hemogram (09/22/2016 4:00 AM EST) White Blood Cell 7.5 4.0 - 9.5 x10(3)/[facility] LAB[facility] Red Blood Cell 2.93(L) 4.00 - 5.21 x10(6)/[facility] Hemoglobin 9.2(L) 11.7 - 15.5 [...] HOSPITAL LABORATORY Platelet 161 145 - 357 x10(3)/[facility] LAB[facility] RDW Standard Deviation 44.0 37.0 - 46.0 [facility] RDW coefficient of variation 12.6 11.5 - 14.1 % [facility] Mean Platelet Volume 9.3 7.6 - 12.9 fL [facility] NRBC% auto 0.3 % [facility] NRBC Absolute 0.020(H) 0.000 - 0.000 x10(3)/[facility] Blood specimen (specimen) 09/22/2016 4:00 AM EST 09/22/2016 4:34 AM EST Narrative Resulting Agency Comment Spec In Lab Alirio Esparza MD HEMATOLOGY ORDERABL ES Performing Organization Address [facility] de Phone Number [facility] [place] [address] * (ABNORMAL) Cardiac Enzymes (09/22/2016 4:00 AM [...] consensus document of the Joint Society of Cardiology/[place] College of Cardiology Committee for the redefinition of myocardial infarction. ??Journal of the [place] College of Cardiology 2000; 36: 959-969] Creatine Kinase 338(H) 0 - 160 unit/L [facility] Blood specimen (specimen) 09/22/2016 4:00 AM EST 09/22/2016 4:34 AM EST Narrative Resulting Agency Comment Spec In Lab Alirio Esparza MD CHEMISTRY ORDERABLE S Performing Organization Address [facility] Co de Phone Number [facility] [place] [address] * (ABNORMAL) Glucose, fasting (09/22/2016 4:00 AM [...] of Diabetes Mellitus, Position Statement from the [place] Diabetes Association. ??Diabetes Care, Volume 33, Supplement 1, Aug 2009 Blood specimen (specimen) 09/22/2016 4:00 AM EST 09/22/2016 4:34 AM EST Narrative Resulting Agency Comment Spec In Lab Alirio Esparza MD CHEMISTRY ORDERABLE S [facility] [place] [address] * (ABNORMAL) Creatinine (09/22/2016 4:00 AM EST) [facility] Signature Creatinine 0.69(L) 0.70 - 1.20 [...] the following links into your internet browser. [email or web address] Blood specimen (specimen) 09/22/2016 4:00 AM EST 09/22/2016 4:34 AM EST Narrative Resulting Agency Comment Spec In Lab Alirio Esparza MD CHEMISTRY ORDERABLE S [facility] [place] [address] * BUN (09/22/2016 4:00 AM EST) Blood Urea Nitrogen 10 8 - 18 mg/dL [facility] Blood specimen (specimen) 09/22/2016 4:00 AM EST 09/22/2016 4:34 AM EST Narrative Resulting Agency Comment Spec In Lab Alirio Esparza MD CHEMISTRY ORDERABLE S Performing Organization Address [facility] Co de Phone Number [facility] [place] [address] * POCT Glucose (09/21/2016 9:59 PM EST) Glucose, POC 146 65 - 199 mg/dL [facility] Comment: Supplemental ranges: <140 mg/dL before meals <180 mg/dL all other times of the day Blood specimen (specimen) 09/21/2016 9:59 PM EST 09/21/2016 9:59 PM EST Alirio Esparza MD POINT OF CARE TEST ORDERABLES Performing Organization Address City/[facility] Co de Phone Number [facility] [place] [address] * POCT Glucose (09/21/2016 7:26 PM EST) Glucose, POC 152 65 - 199 mg/dL [facility] Comment: Supplemental ranges: <140 mg/dL before meals <180 mg/dL all other times of the day Blood specimen (specimen) 09/21/2016 7:26 PM EST 09/21/2016 7:26 PM EST Alirio Esparza MD POINT OF CARE TEST ORDERABLES Performing Organization Address City/[facility]/ZIP Co de Phone Number [facility] [place] [address] * POCT Glucose (09/21/2016 6:00 PM EST) Glucose, POC 146 65 - 199 mg/dL [facility] Comment: Supplemental ranges: <140 mg/dL before meals <180 mg/dL all other times of the day Blood specimen (specimen) 09/21/2016 6:00 PM EST 09/21/2016 6:00 PM EST Alirio Esparza MD POINT OF CARE TEST ORDERABLES [facility] [place] [address] * (ABNORMAL) BLOOD GAS 2 ARTERIAL (09/21/2016 4:42 PM EST) [facility] pH, Arterial 7.35(L) 7.35 - 7.45 [facility] FIO2 Art 40 % [facility] PF Ratio Art 270 [facility] Blood specimen (specimen) 09/21/2016 4:42 PM EST 09/21/2016 4:42 PM EST Alirio Esparza MD POINT OF CARE TEST ORDERABLES Performing Organization Address City/[facility]/ZIP Co de Phone Number [facility] [place] [address] * POCT Glucose (09/21/2016 4:07 PM EST) Glucose, POC 150 65 - 199 mg/dL [facility] Comment: Supplemental ranges: <140 mg/dL before meals <180 mg/dL all other times of the day Blood specimen (specimen) 09/21/2016 4:07 PM EST 09/21/2016 4:07 PM EST Alirio Esparza MD POINT OF CARE TEST ORDERABLES Performing Organization Address City/[facility]/ZIP Co de Phone Number [facility] [place] [address] * (ABNORMAL) Hemoglobin (09/21/2016 4:05 PM EST) Hemoglobin 9.9(L) 11.7 - 15.5 gm/dL [facility] Blood specimen (specimen) 09/21/2016 4:05 PM EST 09/21/2016 4:20 PM EST Narrative Resulting Agency Comment Spec In Lab Alirio Esparza MD HEMATOLOGY ORDERABL ES Performing Organization Address [facility] Phone Number [facility] [place] [address] * Potassium (09/21/2016 4:05 PM EST) Potassium [...] ORDERABLE S Performing Organization Address [facility] de Phone Number [facility] [place] [address] * POCT Glucose (09/21/2016 2:52 PM EST) Glucose, POC 117 65 - 199 mg/dL [facility] Comment: Supplemental ranges: <140 mg/dL before meals <180 mg/dL all other times of the day Blood specimen (specimen) 09/21/2016 2:52 PM EST 09/21/2016 2:52 PM EST Alirio Esparza MD POINT OF CARE TEST ORDERABLES Performing Organization Address [facility] Co de Phone Number [facility] [place] [address] * POCT Glucose (09/21/2016 1:51 PM EST) Glucose, POC 108 65 - 199 mg/dL [facility] Comment: Supplemental ranges: <140 mg/dL before meals <180 mg/dL all other times of the day Blood specimen (specimen) 09/21/2016 1:51 PM EST 09/21/2016 1:51 PM EST Alirio Esparza MD POINT OF CARE TEST ORDERABLES Performing Organization Address City/[facility] Co de Phone Number [facility] [place] [address] * POCT Glucose (09/21/2016 12:54 PM EST) Glucose, POC 128 65 - 199 mg/dL [facility] Comment: Supplemental ranges: <140 mg/dL before meals <180 mg/dL all other times of the day Blood specimen (specimen) 09/21/2016 12:54 PM EST 09/21/2016 12:54 PM EST Alirio Esparza MD POINT OF CARE TEST ORDERABLES Performing Organization Address [facility] Co de Phone Number [facility] [place] [address] * EKG 12 Lead (09/21/2016 12:26 PM EST) Ventricular rate 87 BPM MUSE SYSTEM Atrial Rate 87 BPM MUSE SYSTEM P-R Interval 256 ms MUSE SYSTEM QRS Duration 90 ms MUSE SYSTEM Q-T Interval 406 ms MUSE SYSTEM QTC Calculated (Bezet) 488 ms MUSE SYSTEM Calculated P [place] 24 degrees MUSE SYSTEM Calculated R [place] 21 degrees MUSE SYSTEM Calculated T [place] -5 degrees MUSE SYSTEM INTERPRETATION Sinus rhythm [...] Esparza MD ECG ORDERABLES Performing Organization Address [facility] Co de Phone Number MUSE [...] course of the esophagus and below the [id number]. There is a right IJ PA catheter [...] the course of theesophagus and below the ananr-jw-tjng. There is a right IJ PA catheter [...] Bicarbonate, Arterial 26.2(H) 20.0 - 26.0 mmol/L [facility] Base Excess, Arterial 1.6 [...] [facility] FIO2 Art 100 % [facility] PF Ratio Art 356 [facility] Blood specimen (specimen) 09/21/2016 12:20 PM EST 09/21/2016 12:20 PM EST Alirio Esparza MD POINT OF CARE TEST ORDERABLES [facility] [place] [address] * (ABNORMAL) BLOOD GAS 2 ARTERIAL (09/21/2016 [...] [facility] FIO2 Art 95 % [facility] Flow Art 0.7 LPM [facility] PF Ratio Art 313 [facility] Temp Art 36.7 Celsius [facility] Blood specimen (specimen) 09/21/2016 10:54 AM EST 09/21/2016 10:54 AM EST Alirio Esparza MD POINT OF CARE TEST ORDERABLES Performing Organization Address City/[facility]/ZIP Co de Phone Number [facility] [place] [address] * Thrombin time (09/21/2016 10:50 AM EST) Pathologist [facility] Thrombin Time 19 15 - 20 sec [...] S Performing Organization Address [facility] Co de Phone Number [facility] [place] [address] * Fibrinogen (09/21/2016 10:50 AM EST) [facility] Fibrinogen 228 180 - 510 mg/dL [facility] [...] S Performing Organization Address [facility]/ZIP Co de Phone Number [facility] [place] [address] * APTT (09/21/2016 10:50 AM EST) Partial [...] HEMATOLOGY ORDERABLE S Performing Organization Address City/[facility] Co de Phone Number [facility] [place] [address] * (ABNORMAL) Prothrombin Time (09/21/2016 10:50 AM [...] HEMATOLOGY ORDERABLE S Performing Organization Address City/[facility]/ZIP Co de Phone Number [facility] [place] [address] * (ABNORMAL) Hemogram (09/21/2016 10:50 AM EST) [...] [facility] NRBC% auto 0.1 % [facility] NRBC Absolute 0.020(H) 0.000 - 0.000 x10(3)/mc L [facility] Blood specimen (specimen) 09/21/2016 10:50 AM EST 09/21/2016 10:56 AM EST Narrative Resulting Agency Comment Spec In Lab Luis Enrique Quarles MD HEMATOLOGY ORDERABLE S [facility] [place] [address] * Prepare Platelets, Apheresis (09/21/2016 10:30 AM EST) Dispensed? Yes [facility] Blood specimen (specimen) 09/21/2016 10:30 AM EST 09/21/2016 10:28 AM EST Alirio Esparza MD BLOOD BANK PRODUCT ORDERABLES [facility] [place] [address] * (ABNORMAL) BLOOD GAS 2 ARTERIAL (09/21/2016 10:05 AM EST) pH, Arterial 7.33(L) 7.35 - 7.45 [facility] PCO2, Arterial 54(Critic al) 35 - 45 mmHg [facility] Comment:Noted by optical instrument assembly supervisor. PO2, Arterial 218(H) 85 - 104 [...] [facility] Comment: Noted by optical instrument assembly supervisor. Please note: Patients with WBC >100,000 [...] [facility] Temp Art 37.0 Celsius [facility] Blood specimen (specimen) 09/21/2016 10:05 AM EST 09/21/2016 10:05 AM EST Alirio Esparza MD POINT OF CARE TEST ORDERABLES [facility] [place] [address] * (ABNORMAL) BLOOD GAS 2 ARTERIAL (09/21/2016 9:44 AM EST) pH, Arterial 7.22(Criti gabrielle) 7.35 - 7.45 [facility] Comment:Noted by optical instrument assembly supervisor. PCO2, Arterial 70(Critica l) 35 - 45 mmHg [facility] Comment:Noted by optical instrument assembly supervisor. PO2, Arterial 224(H) 85 - 104 [...] CARE TEST ORDERABLES Performing Organization Address [facility] Co de Phone Number [facility] [place] [address] * (ABNORMAL) Hemoglobin (09/21/2016 9:42 AM EST) Hemoglobin 7.2(L) 11.7 - 15.5 gm/dL [facility] Blood specimen (specimen) 09/21/2016 9:42 AM EST 09/21/2016 9:51 AM EST Narrative Resulting Agency Comment Spec In Lab Alirio Esparza MD HEMATOLOGY ORDERABL ES Performing Organization Address [facility] Co de Phone Number [facility] [place] [address] * Platelet count (09/21/2016 9:42 AM EST) Platelet 159 145 - 357 x10(3)/mc L [facility] Immature Plt % 1.6 0.0 - 7.4 % [facility] Comment: Limitation of the Immature Platelet Fraction (IPF)-May be less reliable when the platelet count is less than 08r807/uL due to statistical imprecision. The IPF value [...] in a decreased state of production. References: [employer] The Clinical Value of the Immature Platelet Fraction (IPF) in Cell Recovery Document Number 10-1143 12/2010 [employer] The Role of the Immature Platelet Fraction (IPF) in the Differential Diagnosis of Thrombocytopenia, Document MKT-10-1209 V05 P012/13 Blood specimen (specimen) 09/21/2016 9:42 AM EST 09/21/2016 9:51 AM EST Narrative Resulting Agency Comment Spec In Lab Alirio Esparza MD HEMATOLOGY ORDERABL ES Performing Organization Address [facility] Co de Phone Number [facility] [place] [address] * (ABNORMAL) Hematocrit (09/21/2016 9:42 AM EST) Pathologist [facility] Hematocrit 21.6(L) 35.7 - 45.8 % [facility] Comment: This result has been called to MICHELLE ALEJANDRE by Serjio Frazier on 09 21 2016 at 0957, and has been read back. Blood specimen (specimen) 09/21/2016 9:42 AM EST 09/21/2016 9:51 AM EST Narrative Resulting Agency Comment Spec In Lab Alirio Esparza MD HEMATOLOGY ORDERABL ES Performing Organization Address City/[facility]/ZIP Co de Phone Number [facility] [place] [address] * Fibrinogen (09/21/2016 9:42 AM EST) Fibrinogen [...] HEMATOLOGY ORDERABL ES [facility] [place] [address] * (ABNORMAL) BLOOD GAS 2 ARTERIAL (09/21/2016 [...] [facility] Temp Art 37.0 Celsius [facility] Blood specimen (specimen) 09/21/2016 9:10 AM EST 09/21/2016 9:10 AM EST Alirio Esparza MD POINT OF CARE TEST ORDERABLES Performing Organization Address City/State/[facility] Co de Phone Number [facility] [place] [address] * Surgical Pathology Report (09/21/2016 9:09 AM EST) Final Diagnosis [id number] ?Location: The signing pathologist has (i) examined [...] Esparza MD PATHOLOGY/CYTOLOGY ORDERABLES Performing Organization Address [facility] [place] [address] * Specimen to Pathology (surgical or derm) (09/21/2016 9:09 AM EST) AP Specimen 09/21/2016 9:09 AM EST 09/21/2016 9:09 AM EST Narrative [facility] - 09/21/2016 9:09 AM EST Specimen requisition ordered. ??Separate Pathology report to follow Alirio Esparza MD PATHOLOGY/CYTOLOGY ORDERABLES Performing Organization Address [facility] [place] [address] * (ABNORMAL) BLOOD GAS 2 ARTERIAL (09/21/2016 8:50 AM EST) pH, Arterial 7.41 7.35 - 7.45 [facility] PCO2, Arterial 33(L) 35 - 45 mmHg [facility] PO2, Arterial 348(H) 85 - 104 mmHg [facility] Bicarbonate, Arterial 20.6 20.0 - 26.0 mmol/L [facility] Base Excess, Arterial -4.1(L) -3.0 - 3.0 mmol/L [facility] Hgb Blood Gas 9.5(L) 11.7 - 15.5 [...] City/State/[facility] Co de Phone Number [facility] [place] [address] * (ABNORMAL) BLOOD GAS 2 ARTERIAL (09/21/2016 [...] [facility] FIO2 Art 95 % [facility] Flow Art 1.1 LPM [facility] PF Ratio Art 298 [facility] Temp Art 35.6 Celsius [facility] Blood specimen (specimen) 09/21/2016 8:18 AM EST 09/21/2016 8:18 AM EST Alirio Esparza MD POINT OF CARE TEST ORDERABLES [facility] [place] [address] * Prepare RBC (09/21/2016 7:05 AM EST) Dispensed? Yes [facility] Blood specimen (specimen) 09/21/2016 7:05 AM EST 09/21/2016 7:02 AM EST Alirio Esparza MD BLOOD BANK PRODUCT ORDERABLES Performing Organization Address [facility] Co de Phone Number [facility] [place] [address] * POCT Glucose (09/21/2016 6:42 AM EST) Glucose, POC 104 65 - 199 mg/dL [facility] Comment: Supplemental ranges: <140 mg/dL before meals <180 mg/dL all other times of the day Blood specimen (specimen) 09/21/2016 6:42 AM EST 09/21/2016 6:42 AM EST Alirio Esparza MD POINT OF CARE TEST ORDERABLES Performing Organization Address City/[facility] Co de Phone Number [facility] [place] [address] documented in this encounter Visit Diagnoses Not [...] dose on Wed09/21/16 at 1230, Until Discontinued, Scott teeth, Routine Given 09/25/2016 9:40 AM EST [...] Patient/family refused)0600 (Not Given - Provider: Breanna Olivas, VLADO - Reason: Patient/family refused)0942 (Given - Provider: Joselyn Caceres RN - Comment: not given at 0600)1600 (Due - Provider: Kendall Martínez [facility]) aspirin chewable tablet 81 mg(Linked Group 1) 81 mg, Oral, DAILY, First dose on Wed09/22/16 at 0900, Until Discontinued, Start on post-op day 1 in the AM., Routine 0817 (Given - Provider: Elsa Miguel RN) 0829 (Given - Provider: Marek Barnes RN) 0942 (Given - Provider: Joselny Caceres RN) aspirin suppository 300 mg(Linked Group [...] dose on Wed09/21/16 at 1230, Until Discontinued, Scott teeth, Routine 0900 (Not Given - Provider: [...] Marek Barnes RN)162 (Given - Provider: Chaya Hill, VALDO) 0941 (Given - Provider: Joselyn Caceres [...] 08 (Given - Provider: Elsa Miguel RN) 0900 (Not Given - Provider: Marek Barnes, RN - Reason: Patient/family refused) 0940 (Not [...] in shift)1100 (Not Given - Provider: Joselyn Cacerse, VALDO - Reason: See comment - Comment: [...] Routine documented in this encounter Care Teams Film Processing Utility Worker Relationship Specialty Start Date End Date Deborah Quiroga APRN PCP - General Family Medicine 03/24/16 02/04/23 documented as of this encounter
--- OUTSIDE RECORDS SUMMARY | 2024-05-23 14:10 | XMS_ITS | Encounter Summary ---
[place] [address] Care Team Providers Care Metal Numerical Tool Programmer Name Role Phone Deborah Quiroga APRN Primary Care Provider [phone] Reason for Visit * Reason Onset Date Comments Prior Authorization 09/11/2016 [facility] Encounter Details Date Type Department Care Team (Late st Contact Info) Description 09/11/2016 Telephone Hematology [place] [phone] Monica Wick Prior Authorization ([employer] ) Social [...] covered facility under the members plan. ID# [id number] Call placed to [phone] Rationale: Can you please start a PA [...] [id number]. Spoke w/ Anna Marie Call Reference [id number] Copay: $ Deductible is not met, patient will have out of pocket costs until deductible is met. documented in this encounter Plan of Treatment Upcoming Encounters Date Type Department Care Team (Late st Contact Info) Description 06/05/2024 2:00 PM EST Hospital Encounter [place] [phone] Markel Borjas MD [facility] [address] [place] [address] 06/05/2024 2:00 PM EST - 06/05/2024 3:00 PM EST Surgery [place] [phone] Markel Borjas MD [facility] [address] [place] [address] (OSC MSURG) BONE MARROW BIOPSY AND ASPIRATION; DIAGNOSTIC (WRVU 1.44) 06/23/2024 2:00 PM EST Office Visit Hematology [place] [phone] Markel Borjas MD [facility] [address] [place] [address] 03/01/2025 4:15 PM EDT Office Visit Dermatology at [place] [address] [place] [address] Marek Bonilla MD [address], [place] [address] DERMATOLOGY [place], [place] [id number] Scheduled Procedures Name Priority Associated Diagnoses Date/Ti me (OSC MSURG) BONE MARROW BIOPSY AND ASPIRATION; DIAGNOSTIC (WRVU 1.44) Anemia, in pt with longstanding neutropenia 06/05/2024 2:00 PM EST documented as of this encounter Visit Diagnoses Not on filedocumented in this encounter Care Teams Metal Numerical Tool Programmer Relationship Specialty Start Date End Date Deborah Quiroga APRN PCP - General Family Medicine 03/24/16 02/04/23 documented as of this encounter
--- OUTSIDE RECORDS SUMMARY | 2024-05-23 14:10 | XMS_ITS | Encounter Summary ---
Author Organization [facility] [place] [address] Care Team Providers Care Ecosystem Ecology Professor Name Role Phone Deborah Quiroga ANURAG Primary Care Provider [phone] Encounter Details Date Type Department Care Team (Late st Contact Info) Description 07/31/2016 Orders Only Hematology [place] [phone] Alexandrea Greenwood RN Neutropenia, unspecified type Social [...] PM EST Hospital Encounter [facility]patient [place] [phone] Markel Borjas MD [facility] [address] H[place] [address] 06/05/2024 2:00 PM EST - 06/05/2024 3:00 PM EST Surgery [place] [place] [phone] Markel Borjas MD [facility] [address] [place] [address] (OSC MSURG) BONE MARROW BIOPSY AND ASPIRATION; DIAGNOSTIC (WRVU 1.44) 06/23/2024 2:00 PM EST Office Visit [place]ology [place] [address] Markel Borjas MD [facility] [address] [place] [address] 03/01/2025 4:15 PM EDT Office Visit Dermatology at [place] [address] [place] [phone] Marek Bonilla MD [address], [place] [address] Scheduled Procedures Name Priority Associated Diagnoses Date/Ti [...] type documented in this encounter Care Teams Ecosystem Ecology Professor Relationship Specialty Start Date End Date Deborah Quiroga APRN PCP - General Family Medicine 03/24/16 02/04/23 documented as of this encounter
--- OUTSIDE RECORDS SUMMARY | 2024-05-23 14:10 | XMS_ITS | Encounter Summary ---
Author Organization [facility] [place] [address] Care Team Providers Care Sat Act Instructor Name Role Phone Deborah Quiroga ANURAG Primary Care Provider [phone] Encounter Details Date Type Department Care Team (Late st Contact Info) Description 09/17/2016 External Results Hematology [place] [phone] Alexandrea Greenwood RN Neutropenia, unspecified type Social [...] PM EST Hospital Encounter [place] [phone] Markel Borjas MD [facility] [address] [place] [address] 06/05/2024 2:00 PM EST - 06/05/2024 3:00 PM EST Surgery [place] [phone] Markel Borjas MD [facility] [address] [place] [address] (OSC MSURG) BONE MARROW BIOPSY AND ASPIRATION; DIAGNOSTIC (WRVU 1.44) 06/23/2024 2:00 PM EST Office Visit Hematology and Oncology at [facility] [place] [address] Markel Borjas MD [facility] [address] [place] [address] 03/01/2025 4:15 PM EDT Office Visit Dermatology at [place] [address] [facility] [place] [phone] Marek Bonilla MD [address], [place] [address] Scheduled Procedures Name Priority Associated Diagnoses Date/Ti [...] type documented in this encounter Care Teams Sat Act Instructor Relationship Specialty Start Date End Date Deborah Quiroga, DELICATESSEN CLERK PCP - General Family Medicine 03/24/16 02/04/23 documented as of this encounter
--- OUTSIDE RECORDS SUMMARY | 2024-05-23 14:10 | XMS_ITS | Encounter Summary ---
Author Organization [facility] [place] [address] Care Team Providers Care Rn Hemodialysis Name Role Phone Deborah Quiroga APRN Primary Care Provider Encounter Details Date Type Department Care Team (Latest Contact Info) Description 07/10/2016 2:54 PM EST - 07/10/2016 11:59 PM EST [place] [phone] Discharge Disposition: Home Social History Tobacco Use [...] PM EST Hospital Encounter [place] [address] [facility] [address] HEM[place] [address] 06/05/2024 2:00 PM EST - 06/05/2024 3:00 PM EST Surgery [place] [address] [facility] [address] HEMAT[place] [address] (OSC MSURG) BONE MARROW BIOPSY AND ASPIRATION; DIAGNOSTIC (WRVU 1.44) 06/23/2024 2:00 PM EST Office Visit Hematology [place] [address] [facility] [address] HEMATOLOGY [place] [address] 03/01/2025 4:15 PM EDT Office Visit Dermatology at [place] [address] [place] [address] Marek Bonilla MD [address], [place] [address] Scheduled Procedures Name Priority Associated Diagnoses Date/Ti [...] Report (07/10/2016 3:43 PM EST) Final Diagnosis [id number] ?Location: OPW The signing pathologist has (i) examined the relevant preparation(s) for the specimen(s) and (ii) rendered or confirmed the diagnosis(es). . ? Bone Marrow Final DIAGNOSIS BONE MARROW (PERIPHERAL SMEAR, ASPIRATE SMEAR, TOUCH PREP, CLOT SECTION, CORE BIOPSY); [OSR# [id number], COLLECTED 06/23/2016, 19 SLIDES]: ?? 1. ??Normocellular [...] clonal lymphoproliferative or myeloproliferative ? disorder (OSR# [id number]) ?Chromosome analysis on the marrow aspirate revealed a normal female karyotype; ?46,XX[25] ??(OSR# [id number]) Electronically signed by: ??Elian Guillen MD Verified: [...] 3/uL Band/Seg 0.52 x103/uL; Lymph 0.75 x103/uL; Anderson 0.15 x103/uL; Eos 0.01%; Baso 0.01 x10 [...] plasma cells represent 3-4% of the cellularity Larned ? Polytypic plasma cell staining, high background Lambda ?Polytypic plasma cell staining, high background Block: ? B2 (Core biopsy 2) Fixative: ?? Formalin ANTIBODY: ?? RESULT/COMMENT CD3 ? Scattered small lymphocytes and lymphoid aggregates highlighted CD20 ?Few scattered small lymphocytes stain ( ?? <CD3 in aggregates) CD138 ? Scattered plasma cells represent 3-4% of the cellularity Larned ? Polytypic plasma cell staining, high background [...] CONSULTATION CASE A - 19 slides labeled [id number], collection date 06/23/2016. [id number] Report to: [facility] Surgical Pathology Department [facility], [place], [address]nd Floor [address], [place] ??[address] 07/13/2016 11:38 AM EST [facility] Consult Case 07/10/2016 3:43 PM EST 07/10/2016 3:43 PM EST Nitesh Pina Jr., MD PATHOLOGY/CYTOLOGY O RDERABLES Performing Organization Address City/State/[facility] Co de Phone Number [facility] [place] [phone] documented in this encounter Visit Diagnoses Not on filedocumented in this encounter Care Teams Rn Hemodialysis Relationship Specialty Start Date End Date Deborah Quiroga APRN PCP - General Family Medicine 03/24/16 02/04/23 documented as of this encounter
--- OUTSIDE RECORDS SUMMARY | 2024-05-23 14:10 | XMS_ITS | Encounter Summary ---
Author Organization [facility] Address [facility] [place] [address] Care Team Providers Care Automotive Manufacturer Name Role Phone Ashley Quirogazac Shields APRN Primary Care Provider [phone] Encounter Details Date Type Department Care Team (Latest Contact Info) Description 08/18/2016 4:40 PM EST [place] [phone] Aortic valve stenosis, unspecified etiology Social History [...] PM EST Hospital Encounter Outpatient [place] [address] Markel Borjas MD [facility] [address] [place] [address] 06/05/2024 2:00 PM EST - 06/05/2024 3:00 PM EST Surgery [place] [address] Markel Borjas MD [facility] [address] [place] [address] (OSC MSURG) BONE MARROW BIOPSY AND ASPIRATION; DIAGNOSTIC (WRVU 1.44) 06/23/2024 2:00 PM EST Office Visit Hematology and Oncology at [facility] [place] [address] Markel Borjas MD [facility] [address] [place] [address] 03/01/2025 4:15 PM EDT Office Visit Dermatology at [place] [address] [place] [address] Marek Bonilla MD [address], [place] [address] Scheduled Procedures Name Priority Associated Diagnoses Date/Ti me (OSC MSURG) BONE MARROW BIOPSY AND ASPIRATION; DIAGNOSTIC (WRVU 1.44) Anemia, in pt with longstanding neutropenia 06/05/2024 2:00 PM EST documented as of this encounter Procedures Procedure Name Priority Date/Time Associated Diagnosis Comments ABORH RECHECK STATUS Routine 08/18/2016 4:50 PM EST TYPE AND SCREEN, SDP (FUTURE SURGERY, [facility] SAME DAY PROGRAM ONLY) Routine 08/18/2016 4:50 [...] (08/18/2016 4:50 PM EST) ABORH Type Recheck [facility] Blood specimen (specimen) 08/18/2016 4:50 PM EST 08/18/2016 5:27 PM EST Narrative Resulting Agency Comment Spec In Lab Alirio Esparza MD BLOOD BANK LAB BETH ALEJO Performing Organization Address [facility] Co de Phone Number [facility] [place] [address] * Antibody screen (08/18/2016 4:50 PM EST) [...] BANK LAB BETH ORTEGAROMERO Performing Organization Address [facility] Co de Phone Number [facility] [place] [address] * ABO/Rh Typing (08/18/2016 4:50 PM EST) ABORH Type B Pos [facility] Blood specimen (specimen) 08/18/2016 4:50 PM EST 08/18/2016 5:11 PM EST Narrative Resulting Agency Comment Spec In Lab Alirio Esparza MD BLOOD BANK LAB BETH ALEJO Performing Organization Address [facility] Co de Phone Number [facility] [place] [address] * Basic Metabolic Panel (non-fasting) (08/18/2016 4:50 PM EST) [facility] Glucose 82 65 - 199 mg/dL [facility] Comment:Diabetes: >=200 mg/d L plus symptoms Blood Urea Nitrogen 12 8 - 18 mg/dL [facility] Creatinine 0.87 0.70 - 1.20 mg/dL [facility] Comment: Please note that the pediatric reference intervals supplied above were not validated at [facility]. Results from pediatric patients should be interpreted [...] the following links into your internet browser. [email or web address] Blood specimen (specimen) 08/18/2016 4:50 PM EST 08/18/2016 5:03 PM EST Narrative Resulting Agency Comment Spec In Lab Alirio Esparza MD CHEMISTRY ORDERABLE S [facility] [place] [address] documented in this encounter Visit Diagnoses Diagnosis Aortic valve stenosis, unspecified etiology documented in this encounter Care Teams Automotive Manufacturer Relationship Specialty Start Date End Date Deborah Quiroga APRN PCP - General Family Medicine 03/24/16 02/04/23 documented as of this encounter
--- OUTSIDE RECORDS SUMMARY | 2024-05-23 14:10 | XMS_ITS | Encounter Summary ---
[place] [address] Care Team Providers Care Barrel Bung Remover And Dumper Name Role Phone JunaidDeborah APRN Primary Care Provider [phone] Reason for Visit * Reason Onset Date Comments Labs Only 09/16/2016 Encounter Details Date Type Department Care Team (Late st Contact Info) Description 09/16/2016 Telephone Hematology [place] [address] Alexandrea Greenwood, RN Labs Only Social History [...] 09/16/2016 11:09 AM EST Message received from accredited legal secretary: Purnima is having her Neulasta done today at [facility]. ??She is wondering if we want to do a CBC prior to the injection? [phone] Borjas: CBC is fine RN spoke with Swapna at [facility] who confirms they can draw CBC on pt today, RN faxed CBC w/diff to [facility] lab at [phone] RN relayed to pt that CBC ordered had been faxed to [facility], pt will have CBC drawn today prior to neulasta injection. documented in this encounter Plan of Treatment Upcoming Encounters Date Type Department Care Team (Late st Contact Info) Description 06/05/2024 2:00 PM EST Hospital Encounter Outpatient [place] [phone] Markel Borjas MD [facility] DR [place] [address] 06/05/2024 2:00 PM EST - 06/05/2024 3:00 PM EST Surgery Outpatient [place] [address] Markel Borjas MD [facility] DR [place] [address] (OSC MSURG) BONE MARROW BIOPSY AND ASPIRATION; DIAGNOSTIC (WRVU 1.44) 06/23/2024 2:00 PM EST Office Visit Hematology [place] [address] Markel Borjas MD [facility] DR [place] [address] 03/01/2025 4:15 PM EDT Office Visit Dermatology at [place] [address] [place] [address] Marek Bonilla MD [address], [address] DERMATOLOGY [place], [place] [address] Scheduled Procedures Name Priority Associated Diagnoses Date/Ti [...] type documented in this encounter Care Teams Barrel Bung Remover And Dumper Relationship Specialty Start Date End Date Deborah Quiroga, MANAGED SECURITY SALES CONSULTANT PCP - General Family Medicine 03/24/16 02/04/23 documented as of this encounter
--- OUTSIDE RECORDS SUMMARY | 2024-05-23 14:11 | XMS_ITS | Encounter Summary ---
Author Organization [facility] Address [facility] [address] Care Team Providers Care Oil Process Stillman Name Role Phone Deborah Quiroga APRN Primary Care Provider [phone] Encounter Details Date Type Department Care Team (Latest Contact Info) Description 05/19/2016 11:52 AM EDT - 05/19/2016 11:59 PM EDT Hospital Encounter XRay at [address] [place] [address] Alirio Esparza MD Nonrheumatic aortic valve stenosis [...] PM EST Hospital Encounter [place] [address] Markel Borjas MD [facility] DR HEMATOLOGY [place] [address] 06/05/2024 2:00 PM EST - 06/05/2024 3:00 PM EST Surgery [place] [address] Markel Borjas MD [facility] DR HEMATOLOGY [place] [address] (OSC MSURG) BONE MARROW BIOPSY AND ASPIRATION; DIAGNOSTIC (WRVU 1.44) 06/23/2024 2:00 PM EST Office Visit [place] [address] Markel Borjas MD [facility] DR HEMATOLOGY [place] [address] 03/01/2025 4:15 PM EDT Office Visit Dermatology at [place] [address] [place] [address] Marek Bonilla MD [address] [place] [address] Scheduled Procedures Name Priority Associated Diagnoses Date/Ti [...] documented in this encounter Care Teams Oil Process Stillman Relationship Specialty Start Date End Date Deborah Quiroga APRN PCP - General Family Medicine 03/24/16 02/04/23 documented as of this encounter
--- OUTSIDE RECORDS SUMMARY | 2024-05-23 14:11 | XMS_ITS | Encounter Summary ---
Author Organization [facility] [place] [address] Care Team Providers Care Cnc Wood Lathe Operator Name Role Phone Mitchell Wilkes MD Primary Care Provider [phone] Encounter Details Date Type Department Care Team (Late st Contact Info) Description 01/19/2014 Orders Only Cardiology at [address] [address] Chele Randolph PA [facility] [place] [address] Cardiomyopathy (Primary Dx) Social History Tobacco Use Types Packs/Day Years Used Date Smoking Tobacco: Never Assessed Sex and Gender Information Value Date Recorded Sex Assigned at Not on file Gender Identity Not on file Sexual Orientation Not on file documented as of this encounter Procedure Notes * Provider, Scanning - 01/23/2014 1:00 PM EDTAssociated Order(s): CARDIAC CATHETERIZATION documented in this encounter Plan of Treatment Upcoming Encounters Date Type Department Care Team (Late st Contact Info) Description 06/05/2024 2:00 PM [facility] Hospital Encounter [place]patient [place] [address] Markel Borjas MD [facility] DR HEMATOLOGY AND ONCOLOGY [place], [place] [address] 06/05/2024 2:00 PM EST - 06/05/2024 3:00 PM EST Surgery [place]patient [place] [address] Markel Borjas MD [facility] [address] [place] [address] (OSC MSURG) BONE MARROW BIOPSY AND ASPIRATION; DIAGNOSTIC (WRVU 1.44) 06/23/2024 2:00 PM EST Office Visit Hematology [place] [address] Markel Borjas MD [facility] DR [place] [address] 03/01/2025 4:15 PM EDT Office Visit Dermatology at [place] [address] [place] [address] Marek Bonilla MD [address], [place] [address] Scheduled Procedures Name Priority Associated Diagnoses Date/Ti [...] cardiomyopathies documented in this encounter Care Teams Cnc Wood Lathe Operator Relationship Specialty Start Date End Date Mitchell Wilkes MD [facility] PCP - General 06/24/10 01/19/14 documented as of this encounter
--- OUTSIDE RECORDS SUMMARY | 2024-05-23 14:11 | XMS_ITS | Encounter Summary ---
Author Organization [facility] [place] [address] Care Team Providers Care Ammonia Technician Name Role Phone Danni Laird APRN Primary Care Provider [phone] Encounter Details Date Type Department Care Team (Late st Contact Info) Description 01/23/2014 Orders Only Cardiology at [address] [phone] Lee Kincaid MD [facility] CARDIOLOGY [place], [place] [id number] SOB (shortness of breath) (Primary Dx) Social [...] PM EST Hospital Encounter Outpatient [place] [address] Markel Borjas MD [facility] HEMATOLOGY AND ONCOLOGY [place], [place] [address] 06/05/2024 2:00 PM EST - 06/05/2024 3:00 PM EST Surgery Outpatient [place] [address] Markel Borjas MD [facility] DR HEMATOLOGY [place] [address] (OSC MSURG) BONE MARROW BIOPSY AND ASPIRATION; DIAGNOSTIC (WRVU 1.44) 06/23/2024 2:00 PM EST Office Visit Hematology [place] [address] Markel Borjas MD [facility] DR HEMATOLOGY [place] [address] 03/01/2025 4:15 PM EDT Office Visit Dermatology at [place] [address] [place] [address] Marek Bonilla MD [address], [place] [address] Scheduled Procedures Name Priority Associated Diagnoses Date/Ti [...] KIRSTIE ONESIMO M ?(Age): 1955(58) Med Rec#: ?[id number] ? Sex: ?F ? Site Loc: ?[facility] ? Ht / Wt: ??158(cm)/93(kg) Pt. Loc: ? Adult Floor ?BSA: ?2.02 Study Date: ?01/23/2014 ? Pt. Type: Inpatient Tape: ? Referring: Lee Kincaid ([id number]) Referring: ANNALISA Back Line Cook: Miguel Beverly Diagnosis:CPT Code(s): ??Echo Full (28345), ??Spectral Doppler (46632), Color Doppler (03489), Indication(s): ??Aortic stenosis Rhythm: Sinus HR ?BP [...] ? Mid-Inferior ?Hypokinetic ? Mid-Inferoseptal ?Hypokinetic ? [place]-Septal ? Hypokinetic ? [place]-Anterior ? Hypokinetic ? [place]-Lateral ?Hypokinetic ? [place]-Inferior ? Hypokinetic ? [place]-Tip ?Hypokinetic ? Chambers ?Value ?Units (Range) ? [...] Patient: KIRSTIE Mejias (Age): 1955(58) Med Rec#: [id number] Sex: F Site Loc: [facility] Ht / Wt: 158(cm)/93(kg) Pt. Loc: Adult Floor BSA: 2.02 Study Date: 01/23/2014 Pt. Type: Inpatient Tape: Referring: Lee Kincaid ([id number]) Referring: ANNALISA Back Line Cook: Miguel Beverly Diagnosis:CPT Code(s): Echo Full (95395), Spectral Doppler (16027), Color Doppler (62318), Indication(s): Aortic stenosis Rhythm: Sinus HR BP [...] Hypokinetic Mid-Posterolateral Hypokinetic Mid-Inferior Hypokinetic Mid-Inferoseptal Hypokinetic [place]-Septal Hypokinetic [place]-Anterior Hypokinetic S[place]-Lateral Hypokinetic Sage-Inferior Hypokinetic Sage-Tip Hypokinetic Chambers Value Units (Range) IVSd 2D [...] breath documented in this encounter Care Teams Ammonia Technician Relationship Specialty Start Date End Date Danni Laird APRN [address] [place] [address] PCP - General 01/23/14 11/11/14 documented as of this encounter
--- OUTSIDE RECORDS SUMMARY | 2024-05-23 14:11 | XMS_ITS | Encounter Summary ---
[place] [address] Care Team Providers Care Kaiawhina Kura Kaupapa Maori Name Role Phone Ashley Quirogan Cornelius ANURAG Primary Care Provider [phone] Encounter Details Date Type Department Care Team (Late st Contact Info) Description 03/24/2016 Notes [place] [address] Alfa Lua Social History Tobacco Use Types [...] assessments completed: Wadsworth Score: 6/6 IADL: 7/7 District Sales Coordinator Strength Trials: 18.4, 15.0, 16.8 (right hand dominant) 5 meter walk test in seconds x3: 4.98, 4.88, 4.45 KCCQol: 98% Alfa Lua documented in this encounter Plan of Treatment Upcoming Encounters Date Type Department Care Team (Late st Contact Info) Description 06/05/2024 2:00 PM EST Hospital Encounter [place]patient [place] [address] Markel Borjas MD [facility] DR HEMATOLOGY [place] [address] 06/05/2024 2:00 PM EST - 06/05/2024 3:00 PM EST Surgery [place] [address] Markel Borjas MD [facility] DR HEMATOLOGY [place] [address] (OSC MSURG) BONE MARROW BIOPSY AND ASPIRATION; DIAGNOSTIC (WRVU 1.44) 06/23/2024 2:00 PM EST Office Visit Hematology [place] [address] Markel Borjas MD [facility] DR HEMATOLOGY [place] [address] 03/01/2025 4:15 PM EDT Office Visit Dermatology at [address] [phone] Marek Bonilla MD [address] DERMATOLOGY [place], [place] [address] Scheduled Procedures Name Priority Associated Diagnoses Date/Ti me (OSC MSURG) BONE MARROW BIOPSY AND ASPIRATION; DIAGNOSTIC (WRVU 1.44) Anemia, in pt with longstanding neutropenia 06/05/2024 2:00 PM EST documented as of this encounter Visit Diagnoses Not on filedocumented in this encounter Care Teams Kaiawhina Kura [place]up[place] Maori Relationship Specialty Start Date End Date Deborah Quiroga APRN PCP - General Family Medicine 03/24/16 02/04/23 documented as of this encounter
--- OUTSIDE RECORDS SUMMARY | 2024-05-23 14:11 | XMS_ITS | Encounter Summary ---
Author Organization [facility] Address [facility] [place] [address] Care Team Providers Care Utility Aide Name Role Phone EitanMagnusDanni ANURAG Primary Care Provider [phone] Encounter Details Date Type Department Care Team (Latest Contact Info) Description 01/23/2014 7:45 AM EDT - 01/23/2014 5:50 PM EDT Hospital Encounter [place] [address] Alan Jacobson MD [facility] [place] [address] Cardiomyopathy; SOB (shortness of breath) Discharge Disposition: [...] by your doctor, do not take any kfvt-cqu-czuufhx medicines or herbal preparations without first discussing this with your doctor or pharmacist. There is the possibility of side effect and interactions when these are combined. Follow up Care Who to Call with Questions or Problems If there are any questions or problems that you think might be related to your cardiac cath or angioplasty, contact the software engineer web applications contact lens fitter by calling [facility] at . documented in this encounter Medications [...] PM EST Hospital Encounter Outpatient [place] [address] Markel Borjas MD [facility] DR HEMATOLOGY [place] [address] 06/05/2024 2:00 PM EST - 06/05/2024 3:00 PM EST Surgery Outpatient [place] [address] Markel Borjas MD [facility] DR HEMATOLOGY [place] [address] (OSC MSURG) BONE MARROW BIOPSY AND ASPIRATION; DIAGNOSTIC (WRVU 1.44) 06/23/2024 2:00 PM EST Office Visit Hematology [place] [address] Markel Borjas MD [facility] DR HEMATOLOGY [place] [address] 03/01/2025 4:15 PM EDT Office Visit Dermatology at [place] [address] [place] [address] Marek Bonilla MD [address] DERMATOLOGY [place], [place] [address] Scheduled Procedures Name Priority Associated Diagnoses Date/Ti [...] ANDREW ECHOLS M ?(Age): 1955(58) Med Rec#: ?[id number] ? Sex: ?F ? Site Loc: [facility] ? Ht / Wt: ??158(cm)/93(kg) Pt. Loc: ? Adult Floor ?BSA: ?2.02 Study Date: ?01/23/2014 ? Pt. Type: Inpatient Tape: ? Referring: Lee Kincaid ([id number]) Referring: ANNALISA Culinary Artist: Miguel Beverly Diagnosis:CPT Code(s): ??Echo Full (57186), ??Spectral Doppler (71434), Color Doppler (39462), Indication(s): ??Aortic stenosis Rhythm: Sinus HR ?BP [...] ? Mid-Inferior ?Hypokinetic ? Mid-Inferoseptal ?Hypokinetic ? [place]-Septal ? Hypokinetic ? [place]-Anterior ? Hypokinetic ? [place]-Lateral ?Hypokinetic ? [place]-Inferior ? Hypokinetic ? [place]-Tip ?Hypokinetic ? Chambers ?Value ?Units (Range) ? [...] 16:34:37 Images reviewed and interpretation verified [facility] Procedure Note Lee Kincaid MD - 01/23/2014 Procedure: Transthoracic Echocardiogram Patient: ANDREW Mejias (Age): 1955(58) Med Rec#: [id number] Sex: F Site Loc: [facility] Ht / Wt: 158(cm)/93(kg) Pt. Loc: Adult Floor BSA: 2.02 Study Date: 01/23/2014 Pt. Type: Inpatient Tape: Referring: Lee Kincaid ([id number]) Referring: ANNALISA Culinary Artist: Miguel Beverly Diagnosis:CPT Code(s): Echo Full (98981), Spectral Doppler (20750), Color Doppler (71635), Indication(s): Aortic stenosis Rhythm: Sinus HR BP [...] Hypokinetic Mid-Posterolateral Hypokinetic Mid-Inferior Hypokinetic Mid-Inferoseptal Hypokinetic [place]-Septal Hypokinetic [place]-Anterior Hypokinetic [place]-Lateral Hypokinetic [place]-Inferior Hypokinetic [place]-Tip Hypokinetic Chambers Value Units (Range) IVSd 2D [...] 16:34:37 Images reviewed and interpretation verified [facility] Lee Kincaid MD ECHO [...] Nitesh Stern RN)[id number] (Given - Provider: Nitesh Stern, RN) fentaNYL 50mcg/mL injection (CANCELED) ONCE PRN, [...] RN) documented in this encounter Care Teams Utility Aide Relationship Specialty Start Date End Date Danni Laird APRN [address] [place] [address] PCP - General 01/23/14 11/11/14 documented as of this encounter
--- OUTSIDE RECORDS SUMMARY | 2024-05-23 14:11 | XMS_ITS | Encounter Summary ---
Author Organization [facility] [place] [address] Care Team Providers Care Dental Amalgam Processor Name Role Phone Junaid Deborah Shileds APRN Primary Care Provider [phone] Encounter Details Date Type Department Care Team (Latest Contact Info) Description 05/19/2016 11:00 AM EDT Clinical [place] [phone] Nonrheumatic aortic valve stenosis Social History Tobacco [...] PM EST Hospital Encounter [place] [address] [facility] DR HEMATOLOGY [place] [address] 06/05/2024 2:00 PM EST - 06/05/2024 3:00 PM EST Surgery [place] [phone] [facility] DR HEMATOLOGY [place] [address] (OSC MSURG) BONE MARROW BIOPSY AND ASPIRATION; DIAGNOSTIC (WRVU 1.44) 06/23/2024 2:00 PM EST Office Visit Hematology [place] [phone] [facility] DR HEMATOLOGY [place] [address] 03/01/2025 4:15 PM EDT Office Visit Dermatology at [address] [place] [address] Marek Bonilla MD [address], [place] [address] Scheduled Procedures Name Priority Associated Diagnoses Date/Ti [...] (Bezet) 448 ms MUSE SYSTEM Calculated P [place] 37 degrees MUSE SYSTEM Calculated R [place] 31 degrees MUSE SYSTEM Calculated T [place] 25 degrees MUSE SYSTEM INTERPRETATION Normal sinus rhythm Normal ECG No previous ECGs available Confirmed by MD Becca, Deangelo ([id number]) on 05/19/2016 5:23:33 PM MUSE SYSTEM 05/19/2016 11:4 3 AM EDT 05/19/2016 5:23 PM EDT Alirio Esparza MD ECG ORDERABLES MUSE SYSTEM documented in this encounter Visit Diagnoses Diagnosis Nonrheumatic aortic valve stenosis Aortic valve disorders documented in this encounter Care Teams Dental Amalgam Processor Relationship Specialty Start Date End Date Deborah Quiroga APRN PCP - General Family Medicine 03/24/16 02/04/23 documented as of this encounter
--- OUTSIDE RECORDS SUMMARY | 2024-05-23 14:11 | XMS_ITS | Encounter Summary ---
Author Organization [facility] [place] [address] Care Team Providers Care Insurance Claim Approver Name Role Phone Ashley Quirogazac Shields APRN Primary Care Provider [phone] Reason for Visit * Consultation (Urgent) - Closed Specialty Diagnoses / Procedures Referred By Contac t Referred To Contact Cardiac Surgery Diagnoses aortic stenosis, consideration for valve replacement Antelmo Burrell MD [address] [place] [address] [place] [address] Alirio Esparza MD [facility] [place] [address] Referral ID Status Reason Start Date Expiration Date V isits Requested Visits Authorized [id number] Closed Connection Center 03/04/2016 03/04/2017 1 1 Encounter Details Date Type Department Care Team (Late st Contact Info) Description 03/24/2016 10:40 AM EDT Office [place] [phone] Alirio Esparza MD Aortic valve stenosis, unspecified [...] is a patient of Antelmo Burrell [facility] Cardiology. Mrs. Thacker is being sent [...] 30 minute visit, 20 minutes were spent [id number] with the patient discussing aortic stenosis and valve replacement. documented in this encounter Plan of Treatment Upcoming Encounters Date Type Department Care Team (Late st Contact Info) Description 06/05/2024 2:00 PM [facility] Hospital Encounter Outpatient [place] [address] Markel Borjas MD [facility] [place] [address] 06/05/2024 2:00 PM EST - 06/05/2024 3:00 PM EST Surgery Outpatient [place] [address] Markel Borjas MD [facility] DR [place] [address] (OSC MSURG) BONE MARROW BIOPSY AND ASPIRATION; DIAGNOSTIC (WRVU 1.44) 06/23/2024 2:00 PM EST Office Visit Hematology [place] [phone] Markel Borjas MD [facility] DR [place] [address] 03/01/2025 4:15 PM EDT Office Visit Dermatology at [place] [address] [place] [phone] Marek [place] MD [address], [place] [address] Scheduled Procedures Name Priority Associated Diagnoses Date/Ti me (OSC MSURG) BONE MARROW BIOPSY AND ASPIRATION; DIAGNOSTIC (WRVU 1.44) Anemia, in pt with longstanding neutropenia 06/05/2024 2:00 PM EST documented as of this encounter Visit Diagnoses Diagnosis Aortic valve stenosis, unspecified etiology documented in this encounter Care Teams Insurance Claim Approver Relationship Specialty Start Date End Date Deborah Quiroga APRN PCP - General Family Medicine 03/24/16 02/04/23 documented as of this encounter
--- OUTSIDE RECORDS SUMMARY | 2024-05-23 14:11 | XMS_ITS | Encounter Summary ---
Author Organization [facility] Address [facility] [address] Care Team Providers Care Software Installer Name Role Phone Junaid, Deborah Shields APRN Primary Care Provider [phone] Reason for Visit * Auth/Cert Specialty Diagnoses / Procedures Referred By Crispin t Referred To Contact Diagnoses AVS Procedures CARDIAC CATHETERIZATION Referral ID Status Reason Start Date Expiration Date Visits Re quested Visits Authorized [id number] 1 1 Encounter Details Date Type Department Care Team (Late st Contact Info) Description 06/03/2016 7:30 AM EDT - 06/03/2016 8:30 AM EDT Surgery [place] [phone] Mario Alberto Escobedo MD [facility] [place] [address] CARDIAC CATHETERIZATION Social History Tobacco Use Types [...] by your doctor, do not take any foea-[id number] medicinesor herbal preparations without first discussing this with your doctor or pharmacist. There is the possibility of side effects and interactions when these are combined. Follow Up Care Who to call with questions or problems If there are any questions or problems that you think might be related to your cardiac cath or angioplasty, contact the oven equipment repairer graphics production specialist by calling [facility] at . * Patient Instructions* Felicia Corrigan - 06/03/2016 9:33 AM EDT Cardiology Instructions Call your doctor if: Chest pain, dyspnea, pain or swelling in legs occurs. If you have non-emergent questions between now and the time of your follow up appointments: -During 8am-5pm Wednesday through Wednesday call [phone] to speak with a nurse in the cardiology clinic -All other times call [phone] and ask to speak to the analytical engineer graphics production specialist. MEDICATIONS - restart your spironolactone, discontinue [...] Appointments: Primary care provider: Cardiology: Deborah Hahn, COMMUNICATION SPEC [phone] Follow up as planned or as needed. Dr. Esparza [phone] Other follow-up appointment: Hematology - Dr. Mario [...] PM EST Hospital Encounter Outpatient [place] [address] Markel Borjas MD [facility] [place] [address] 06/05/2024 2:00 PM EST - 06/05/2024 3:00 PM EST Surgery Outpatient [place] [address] Markel Borjas MD [facility] [place] [address] (OSC MSURG) BONE MARROW BIOPSY AND ASPIRATION; DIAGNOSTIC (WRVU 1.44) 06/23/2024 2:00 PM EST Office Visit [place]ology [place] [phone] Markel Borjas MD [facility] [place] [address] 03/01/2025 4:15 PM EDT Office Visit Dermatology at [place] [address] [place] [phone] Marek [place] MD [address], [place] [address] Scheduled Procedures Name Priority Associated Diagnoses Date/Ti [...] EDT Mario Alberto Escobedo MD CHEMISTRY ORDERABLES [facility] [place] [address] * Methylmalonic acid, serum (06/03/2016 11:45 AM EDT) [facility] Methylmalonic Acid (NOVEMBER) 0.21 <=0.40 nmol/mL [facility] Comment: Test Performed by: [facility] [place] [address] Skein Mercerizing Machine Operator: Raymond Chaudhry II, M.D., Ph.D. Blood specimen (specimen) 06/03/2016 11:45 AM EDT 06/03/2016 1:57 PM EDT Narrative Resulting Agency Comment Spec In Lab Mario Alberto Escobedo MD LAB SEND OUT ORDERAB LES Performing Organization Address [facility] Co de Phone Number [facility] [place] [address] * Granulocyte Antibody (06/03/2016 11:45 AM EDT) [facility] Granulocyte Ab (NOVEMBER) Negative Not Applicable [facility] Comment: ADDITIONAL INFORMATION Method: Immunofluorescent Assay Performing Laboratory CLIA# [id number] This test was developed and its performance characteristics determined by [facility] in a manner consistent with CLIA requirements. This test has not been cleared or approved by the U.S. Food and Drug Administration. Test Performed by: [facility] [place] [address] Skein Mercerizing Machine Operator: Raymond Chaudhry II, M.D., Ph.D. Blood specimen (specimen) 06/03/2016 11:45 AM EDT 06/03/2016 1:57 PM EDT Narrative Resulting Agency Comment Spec In Lab Mario Alberto Escobedo MD LAB SEND OUT ORDERAB LES Performing Organization Address [facility] Co de Phone Number [facility] [place] [address] * TSH (06/03/2016 11:45 AM EDT) Thyroid Stimulating Hormone 2.18 0.27 - 4.20 mcIU/mL [facility] Blood specimen (specimen) 06/03/2016 11:45 AM EDT 06/03/2016 12:11 PM EDT Narrative Resulting Agency Comment Spec In Lab Mario Alberto Escobedo MD CHEMISTRY ORDERABLES [facility] [place] [address] * Homocysteine Total, Plasma (06/03/2016 11:45 AM EDT) Homocystine 9 <=15 mcmol/L [facility] Blood specimen (specimen) 06/03/2016 11:45 AM EDT 06/03/2016 12:11 PM EDT Narrative Resulting Agency Comment Spec In Lab Mario Alberto Escobedo MD CHEMISTRY ORDERABLES Performing Organization Address City/[facility]/ZIP Co de Phone Number [facility] [place] [address] * Folate, serum (06/03/2016 11:45 AM EDT) Folate >20.0 4.8 - 24.2 ng/mL [facility] Blood specimen (specimen) 06/03/2016 11:45 AM EDT 06/03/2016 12:04 PM EDT Narrative Resulting Agency Comment Spec In Lab Mario Alberto Escobedo MD CHEMISTRY ORDERABLES [facility] [place] [address] * (ABNORMAL) Sedimentation rate (06/03/2016 11:45 AM EDT) Sedimentation Rate Automated 41(H) 0 - 20 mm/hr [facility] Blood specimen (specimen) 06/03/2016 11:45 AM EDT 06/03/2016 12:04 PM EDT Narrative Resulting Agency Comment Spec In Lab Mario Alberto Escobedo MD HEMATOLOGY ORDERABLE S Performing Organization Address City/[facility] Co de Phone Number [facility] [place] [address] * Lactate Dehydrogenase (06/03/2016 11:45 AM EDT) Lactate Dehydrogenase 164 110 - 220 unit/L [facility] Blood specimen (specimen) 06/03/2016 11:45 AM EDT 06/03/2016 12:11 PM EDT Narrative Resulting Agency Comment Spec In Lab Mario Alberto Escobedo MD CHEMISTRY ORDERABLES Performing Organization Address [facility] de Phone Number [facility] [place] [address] * Comprehensive metabolic panel (non-fasting) (06/03/2016 11:45 [...] the following links into your internet browser. [email or web address] Blood specimen (specimen) 06/03/2016 11:45 AM EDT 06/03/2016 12:11 PM EDT Narrative Resulting Agency Comment Spec In Lab Mario Alberto Escobedo MD CHEMISTRY ORDERABLES [facility] [place] [address] documented in this encounter Visit Diagnoses Diagnosis [...] on Wed06/03/16 at 0856, Until Wed06/03/16 at 09, Cath (Intra-Procedure), Routine Given 06/03/2016 8:56 AM EDT 5,000 Units iohexol (OMNIPAQUE) 350 mg/mL solution ONCE PRN, Starting on Wed06/03/16 at 0916, Until Wed06/03/16 at 09, Cath (Intra-Procedure), Routine Given 06/03/2016 9:16 AM [...] Hernandez) documented in this encounter Care Teams Software Installer Relationship Specialty Start Date End Date Deborah Quiroga, COMMUNICATION SPEC PCP - General Family Medicine 03/24/16 02/04/23 documented as of this encounter
--- OUTSIDE RECORDS SUMMARY | 2024-05-23 14:11 | XMS_ITS | Encounter Summary ---
Author Organization [place] [address] Care Team Providers Care Periodontal Assistant Name Role Phone EitanDanni ANURAG Primary Care Provider [phone] Encounter Details Date Type Department Care Team (Late st Contact Info) Description 01/22/2014 Telephone Cardiology at [address] [phone] Cynthia Arrington LPN Social History Tobacco Use [...] - 01/23/2014 2:39 PM EDT This typewriter tester did not receive a call back from [...] PM EST Hospital Encounter [place] [phone] Markel Borjas MD [facility] HEMATOLOGY [place] [address] 06/05/2024 2:00 PM EST - 06/05/2024 3:00 PM EST Surgery [place] [phone] Markel Borjas MD [facility] HEMATOLOGY [place] [address] (OSC MSURG) BONE MARROW BIOPSY AND ASPIRATION; DIAGNOSTIC (WRVU 1.44) 06/23/2024 2:00 PM EST Office Visit Hematology [place] [phone] Markel Borjas MD [facility] HEMATOLOGY [place] [address] 03/01/2025 4:15 PM EDT Office Visit Dermatology at [address] [place] [address] Marek [place] MD [address], [place] A DERMATOLOGY [place], [place] [phone] Scheduled Procedures Name Priority Associated Diagnoses Date/Ti me (OSC MSURG) BONE MARROW BIOPSY AND ASPIRATION; DIAGNOSTIC (WRVU 1.44) Anemia, in pt with longstanding neutropenia 06/05/2024 2:00 PM EST documented as of this encounter Visit Diagnoses Not on filedocumented in this encounter Care Teams Periodontal Assistant Relationship Specialty Start Date End Date Danni Laird APRN [address] [place] [address] PCP - General 01/23/14 11/11/14 documented as of this encounter
--- OUTSIDE RECORDS SUMMARY | 2024-05-23 14:11 | XMS_ITS | Encounter Summary ---
Author Organization [facility] Address [facility] [place] [address] Care Team Providers Care Red Hat Open Stack Administrator Name Role Phone JunaidAshley hargrovezac Shields APRN Primary Care Provider [phone] Reason for Visit * Auth/Cert Specialty Diagnoses / Procedures Referred By Crispin t Referred To Contact Diagnoses AVS Procedures CARDIAC CATHETERIZATION Referral ID Status Reason Start Date Expiration Date Visits Re quested Visits Authorized [id number] 1 1 Encounter Details Date Type Department Care Team (Late st Contact Info) Description 06/03/2016 6:32 AM EDT - 06/03/2016 1:10 PM EDT Hospital Encounter [place] [phone] Anjum Oliveros II, MD [facility] [place] [address] Mario Alberto Escobedo MD [facility] [place] [address] Aortic valve stenosis, unspecified etiology; Nonrheumatic aortic [...] by your doctor, do not take any ctzh-pfj-mlrfvty medicinesor herbal preparations without first discussing this with your doctor or pharmacist. There is the possibility of side effects and interactions when these are combined. Follow Up Care Who to call with questions or problems If there are any questions or problems that you think might be related to your cardiac cath or angioplasty, contact the revenue integrity analyst security incident response specialist by calling [facility] at . * Patient Instructions* Felicia Corrigan - 06/03/2016 9:33 AM EDT Cardiology Instructions Call your doctor if: Chest pain, dyspnea, pain or swelling in legs occurs. If you have non-emergent questions between now and the time of your follow up appointments: -During 8am-5pm Wednesday through Wednesday call [phone] to speak with a nurse in the cardiology clinic -All other times call [phone] and ask to speak to the machine tool builder security incident response specialist. MEDICATIONS - restart your spironolactone, discontinue [...] Appointments: Primary care provider: Cardiology: Deborah Hahn, PLATE GLASS INSTALLER HELPER [phone] Follow up as planned or as needed. Dr. Esparza [phone] Other follow-up appointment: Hematology - Dr. Mario [...] PM EST Hospital Encounter Outpatient [place] [address] Markel Borjas MD [facility] DR HEMATOLOGY [place] [address] 06/05/2024 2:00 PM EST - 06/05/2024 3:00 PM EST Surgery Outpatient [place] [address] Markel Borjas MD [facility] DR HEMATOLOGY [place] [address] (OSC MSURG) BONE MARROW BIOPSY AND ASPIRATION; DIAGNOSTIC (WRVU 1.44) 06/23/2024 2:00 PM EST Office Visit H[place] [address] Markel Borjas MD [facility] DR HEMATOLOGY [place] [address] 03/01/2025 4:15 PM EDT Office Visit Dermatology at [place] [address] [place] [phone] Marek [place] MD [address], [place] [address] Scheduled Procedures Name Priority Associated Diagnoses Date/Ti [...] 11:45 AM EDT) [facility] Blood specimen (specimen) Venous Draw / Unknown 06/03/2016 11:45 AM EDT 06/03/2016 12:12 PM EDT Mario Alberto Escobedo MD CHEMISTRY ORDERABLES Performing Organization Address [facility] Co de Phone Number [facility] [place] [address] * Methylmalonic acid, serum (06/03/2016 11:45 AM EDT) [facility] Methylmalonic Acid (NOVEMBER) 0.21 <=0.40 nmol/mL [facility] Comment: Test Performed by: [place] [address] Proctologist: Raymond Chaudhry II, M.D., Ph.D. Blood specimen (specimen) 06/03/2016 11:45 AM EDT 06/03/2016 1:57 PM EDT Narrative Resulting Agency Comment Spec In Lab Mario Alberto Escobedo MD LAB SEND OUT ORDERAB LES Performing Organization Address City/[facility] Co de Phone Number [facility] [place] [address] * Granulocyte Antibody (06/03/2016 11:45 AM EDT) [facility] Granulocyte Ab (NOVEMBER) Negative Not Applicable [facility] Comment: ADDITIONAL INFORMATION Method: Immunofluorescent Assay Performing Laboratory CLIA# [id number] This test was developed and its performance characteristics determined by [facility] in a manner consistent with CLIA requirements. This test has not been cleared or approved by the U.S. Food and Drug Administration. Test Performed by: [address] [address] Proctologist: Raymond Chaudhry II, M.D., Ph.D. Blood specimen (specimen) 06/03/2016 11:45 AM EDT 06/03/2016 1:57 PM EDT Narrative Resulting Agency Comment Spec In Lab Mario Alberto Escobedo MD LAB SEND OUT ORDERAB LES Performing Organization Address City/[facility]/ZIP Co de Phone Number [facility] [place] [address] * TSH (06/03/2016 11:45 AM EDT) Thyroid Stimulating Hormone 2.18 0.27 - 4.20 mcIU/mL [facility] Blood specimen (specimen) 06/03/2016 11:45 AM EDT 06/03/2016 12:11 PM EDT Narrative Resulting Agency Comment Spec In Lab Mario Alberto Escobedo MD CHEMISTRY ORDERABLES Performing Organization Address [facility] Co de Phone Number [facility] [place] [address] * Homocysteine Total, Plasma (06/03/2016 11:45 AM EDT) Homocystine 9 <=15 mcmol/L [facility] Blood specimen (specimen) 06/03/2016 11:45 AM EDT 06/03/2016 12:11 PM EDT Narrative Resulting Agency Comment Spec In Lab Mario Alberto Escobedo MD CHEMISTRY ORDERABLES Performing Organization Address [facility]/ZIP Co de Phone Number [facility] [place] [address] * Folate, serum (06/03/2016 11:45 AM EDT) Folate >20.0 4.8 - 24.2 ng/mL [facility] Blood specimen (specimen) 06/03/2016 11:45 AM EDT 06/03/2016 12:04 PM EDT Narrative Resulting Agency Comment Spec In Lab Mario Alberto Escobedo MD CHEMISTRY ORDERABLES Performing Organization Address City/[facility]/ZIP Co de Phone Number [facility] [place] [address] * (ABNORMAL) Sedimentation rate (06/03/2016 11:45 AM EDT) Sedimentation Rate Automated 41(H) 0 - 20 mm/hr [facility] Blood specimen (specimen) 06/03/2016 11:45 AM EDT 06/03/2016 12:04 PM EDT Narrative Resulting Agency Comment Spec In Lab Mario Alberto Escobedo MD HEMATOLOGY ORDERABLE S Performing Organization Address [facility]/ZIP Co de Phone Number [facility] [place] [address] * Lactate Dehydrogenase (06/03/2016 11:45 AM EDT) [facility] Lactate Dehydrogenase 164 110 - 220 unit/L [facility] Blood specimen (specimen) 06/03/2016 11:45 AM EDT 06/03/2016 12:11 PM EDT Narrative Resulting Agency Comment Spec In Lab Mario Alberto Escobedo MD CHEMISTRY ORDERABLES Performing Organization Address [facility] Co de Phone Number [facility] [place] [address] * Comprehensive metabolic panel (non-fasting) (06/03/2016 11:45 AM EDT) [facility] Glucose 90 65 - 199 mg/dL [facility] [...] the following links into your internet browser. [email or web address] Blood specimen (specimen) 06/03/2016 11:45 AM EDT 06/03/2016 12:11 PM EDT Narrative Resulting Agency Comment Spec In Lab Mario Alberto Escobedo MD CHEMISTRY ORDERABLES [facility] [place] [address] documented in this encounter Visit Diagnoses Diagnosis [...] Hernandez) documented in this encounter Care Teams Red Hat Open Stack Administrator Relationship Specialty Start Date End Date Deborah Quiroga, PLATE GLASS INSTALLER HELPER PCP - General Family Medicine 03/24/16 02/04/23 documented as of this encounter
--- OUTSIDE RECORDS SUMMARY | 2024-05-23 14:11 | XMS_ITS | Encounter Summary ---
Author Organization [facility] [place] [address] Care Team Providers Care Rubber And Plastics Worker Name Role Phone Ashley Quirogazac Shields APRN Primary Care Provider [phone] Encounter Details Date Type Department Care Team (Latest Contact Info) Description 05/19/2016 11:20 AM EDT Laboratory [place] [phone] Nonrheumatic aortic valve stenosis Social History Tobacco [...] PM EST Hospital Encounter [place] [phone] Markel Borjas MD [facility] [place] [address] 06/05/2024 2:00 PM EST - 06/05/2024 3:00 PM EST Surgery [place] [address] Markel Borjas MD [facility] [place] [address] (OSC MSURG) BONE MARROW BIOPSY AND ASPIRATION; DIAGNOSTIC (WRVU 1.44) 06/23/2024 2:00 PM EST Office Visit Hematology [place] [address] Markel Borjas MD [facility] [place] [address] 03/01/2025 4:15 PM EDT Office Visit Dermatology at [place] [address] [place] [address] Marek Bonilla MD [address] [place] [address] Scheduled Procedures Name Priority Associated Diagnoses Date/Ti [...] (05/19/2016 11:32 AM EDT) Plat estimate Normal [facility] RBC Morphology Normal [facility] Blood specimen (specimen) 05/19/2016 11:32 AM EDT 05/19/2016 11:41 AM EDT Narrative Resulting Agency Comment Spec In Lab Alirio Esparza MD HEMATOLOGY ORDERABL ES [facility] [place] [address] * (ABNORMAL) Differential, Automated (05/19/2016 11:32 AM EDT) Neutrophil % 25.9 % [facility] Neutrophil Absolute 0.42(Crit ical) 1.70 - 6.10 x10(3)/mc L [facility] Comment: This result has been called to DR ALIRIO ESPARZA by Alivia Ibarra on 05 19 2016 at 1228, and has been read back. Lymph % 59.9 % [facility] Lymphocytes Abs 1.0 0.9 - 3.2 x10(3)/mc L [facility] Monocyte % 13.0 % [facility] Monocyte Abs 0.2(L) 0.3 - 0.9 x10(3)/mc L [facility] Eos % 0.6 % [facility] Eosinophils Abs 0.0 0.0 - 0.4 x10(3)/mc L [facility] Basophil % 0.6 % [facility] [place] [address] * (ABNORMAL) Hemogram (05/19/2016 11:32 AM EDT) [...] Platelet 227 145 - 357 x10(3)/mc L [facility] RDW Standard Deviation 40.5 37.0 - 46.0 fL [facility] RDW coefficient of variation 11.5 11.5 - 14.1 % [facility] Mean Platelet Volume 8.4 7.6 - 12.9 fL [facility] NRBC% auto 0.0 % [facility] NRBC Absolute 0.000 0.000 - 0.000 x10(3)/mc L [facility] Blood specimen (specimen) 05/19/2016 11:32 AM EDT 05/19/2016 11:41 AM EDT Narrative Resulting Agency Comment Spec In Lab Alirio Esparza MD HEMATOLOGY ORDERABL ES Performing Organization Address [facility] Co de Phone Number [facility] [place] [address] * Antibody screen (05/19/2016 11:32 AM EDT) Ab Screen Interp Negative [facility] Expires at [id number] on: 07/03/2016 [facility] Comment: Corrected from 06/11/16 12:00 [Unknown] on 06/09/16 05:51 by Bethanie Tomlinson I.. Corrected from 07/03/16 12:00 [Unknown] on 05/21/16 06:00 by Shelia Barrera Blood specimen (specimen) 05/19/2016 11:32 AM EDT 05/19/2016 11:35 AM EDT Narrative Resulting Agency Comment Spec In Lab Alirio Esparza MD BLOOD BANK LAB ORDE MELO Performing Organization Address City/[facility]/ZIP Co de Phone Number [facility] [place] [address] * ABO/Rh Typing (05/19/2016 11:32 AM EDT) ABORH Type B Pos [facility] Blood specimen (specimen) 05/19/2016 11:32 AM EDT 05/19/2016 11:35 AM EDT Narrative Resulting Agency Comment Spec In Lab Alirio Esparza MD BLOOD BANK LAB ORDE MELO Performing Organization Address City/[facility]/ZIP Co de Phone Number [facility] [place] [address] * Basic Metabolic Panel (non-fasting) (05/19/2016 11:32 AM EDT) Glucose 86 65 - 199 mg/dL WHITE [...] the following links into your internet browser. [email or web address] Blood specimen (specimen) 05/19/2016 11:32 AM EDT 05/19/2016 11:41 AM EDT Narrative Resulting Agency Comment Spec In Lab Alirio Esparza MD CHEMISTRY ORDERABLE S [facility] [place] [address] documented in this encounter Visit Diagnoses Diagnosis Nonrheumatic aortic valve stenosis Aortic valve disorders documented in this encounter Care Teams Rubber And Plastics Worker Relationship Specialty Start Date End Date Deborah Quiroga APRN PCP - General Family Medicine 03/24/16 02/04/23 documented as of this encounter
--- OUTSIDE RECORDS SUMMARY | 2024-05-23 14:11 | XMS_ITS | Encounter Summary ---
[place] [address] Care Team Providers Care Social Media Project Manager Name Role Phone Jerel Sofia Garcia APRN Primary Care Provider [phone] Encounter Details Date Type Department Care Team (Latest Contact Info) Description 11/12/2014 8:10 AM EDT - 11/12/2014 11:59 PM EDT Hospital [place] [phone] CLINIC, DR ABE Burrell, Antelmo Porter MD [facility] [address] [place] [address] Discharge Disposition: Home Social History Tobacco Use [...] PM EST Hospital Encounter [place]patient [place] [phone] Markel Borjas MD [facility] DR HEMATOLOGY [place] [address] 06/05/2024 2:00 PM EST - 06/05/2024 3:00 PM EST Surgery [place] [phone] Markel Borjas MD [facility] DR HEMATOLOGY [place] [address] (OSC MSURG) BONE MARROW BIOPSY AND ASPIRATION; DIAGNOSTIC (WRVU 1.44) 06/23/2024 2:00 PM EST Office Visit Hematology [place] [phone] Markel Borjas MD [facility] DR HEMATOLOGY [place] [address] 03/01/2025 4:15 PM EDT Office Visit Dermatology at [place] [address] [place] [phone] Marek Bonilla MD [address], [place] [address] Scheduled Procedures Name Priority Associated [...] mLs documented in this encounter Care Teams Social Media Project Manager Relationship Specialty Start Date End Date Sofia Beltrán, ANURAG [address] [place] [address] PCP - General 11/12/14 03/23/16 documented as of this encounter
--- OUTSIDE RECORDS SUMMARY | 2024-05-23 14:11 | XMS_ITS | Encounter Summary ---
Author Organization [facility] Address [facility] [address] Care Team Providers Care Plaster Die Maker Name Role Phone Deborah Quiroga APRN Primary Care Provider [phone] Reason for Visit * Reason Comments Schedule Office Case * Consultation (Routine) - Closed Specialty Diagnoses / Procedures Referred By Contac t Referred To Contact Hematology and Oncology Diagnoses Leukopenia Neutropenia LEUKOPENIA W/NEUTROPENIA Procedures TC PEGFILGRASTIM, 6MG, INJECTION LEUKOPENIA W/NEUTROPENIA Alirio Esparza MD [facility] [place] [address] Mario Alberto Ramos Jr., MD [facility] [address] [place] [address] Referral ID Status Reason Start Date Expiration Date V isits Requested Visits Authorized [id number] Closed Consult, Test & Treat 07/17/2016 07/17/2017 1 1 Encounter Details Date Type Department Care Team (Late st Contact Info) Description 06/09/2016 3:00 PM EST Office Visit Hematology [place] [address] Mario Alberto Ramos Jr., MD [facility] [place] [address] Cyclical neutropenia Social History Tobacco Use Types [...] 3:00 PM EST [facility] Unknown See Comment Flow Cytometry Report Unknown [id number] ... HematoPathology: Flow Cytometry DIAGNOSIS 1. No [...] PM EST Hospital Encounter Outpatient [place] [phone] Markel Borjas MD [facility] [address] [place] [address] 06/05/2024 2:00 PM EST - 06/05/2024 3:00 PM EST Surgery Outpatient [place] [address] Markel Borjas MD [facility] [address] [place] [address] (OSC MSURG) BONE MARROW BIOPSY AND ASPIRATION; DIAGNOSTIC (WRVU 1.44) 06/23/2024 2:00 PM EST Office Visit Hematology [place] [phone] Markel Borjas MD [facility] [place] [address] 03/01/2025 4:15 PM EDT Office Visit Dermatology at [place] [address] [place] [phone] Marek Bonilla MD [address], [place] [address] Scheduled Procedures Name Priority Associated Diagnoses Date/Ti [...] (06/09/2016 4:53 PM EST) Flow Cytometry Report [id number] ?Location: 3K The signing pathologist has (i) [...] by the Clinical Flow Cytometry Laboratory at [facility]. It has not been [...] high complexity clinical laboratory testing. SPECIMEN PROCESSING [id number] Cells for immunophenotypic analysis were derived from [...] PATHOLOGY/CYTOLOGY O RDERABLES [facility] [place] [address] * Scan, Peripheral Blood (06/09/2016 4:53 PM EST) Plat estimate Normal [facility] RBC Morphology Normal [facility] Blood specimen (specimen) 06/09/2016 4:53 PM EST 06/09/2016 5:00 PM EST Narrative Resulting Agency Comment Spec In Lab Mario Alberto Ramos Jr., MD HEMATOLOGY ORDERABLE S [facility] [place] [address] * (ABNORMAL) Differential, Automated (06/09/2016 4:53 PM EST) Neutrophil % 27.7 % [facility] Monocyte % 13.3 % [facility] Monocyte Abs 0.2(L) 0.3 - 0.9 x10(3)/mc L [facility] Eos % 0.6 % [facility] Eosinophils Abs 0.0 0.0 - 0.4 x10(3)/mc L [facility] Basophil % 1.2 % [facility] Baso Absolute [...] Alberto Ramos Jr., MD HEMATOLOGY ORDERABLE S [facility] [place] [address] * (ABNORMAL) Hemogram (06/09/2016 4:53 PM EST) [...] RDW Standard Deviation 39.8 37.0 - 46.0 [facility] RDW coefficient of variation 11.8 11.5 - 14.1 % [facility] Mean Platelet Volume 8.6 7.6 - 12.9 [facility] NRBC% auto 0.0 % [facility] NRBC Absolute 0.000 0.000 - 0.000 x10(3)/mc L [facility] Blood specimen (specimen) 06/09/2016 4:53 PM EST 06/09/2016 5:00 PM EST Narrative Resulting Agency Comment Spec In Lab Mario Alberto Ramos Jr., MD HEMATOLOGY ORDERABLE S [facility] [place] [address] * Immunophenotyping Flow Cytometry (06/09/2016 4:53 PM EST) Immunophenotyping Flow See Comment [facility] Comment: When completed by the Pathologist, the Flow Cytometry Report ([id number]) will display under the Pathology Results section within [facility]. Specimen of unknown material (specimen) 06/09/2016 4:53 PM EST 06/09/2016 5:00 PM EST Narrative Resulting Agency Comment Spec In Lab Mario Alberto Ramos Jr., MD HEMATOLOGY ORDERABLE S [facility] [place] [address] documented in this encounter Visit Diagnoses Diagnosis Cyclical neutropenia Cyclic neutropenia documented in this encounter Care Teams Plaster Die Maker Relationship Specialty Start Date End Date Deborah Quiroga, ANURAG PCP - General Family Medicine 03/24/16 02/04/23 documented as of this encounter
--- OUTSIDE RECORDS SUMMARY | 2024-05-23 14:11 | XMS_ITS | Encounter Summary ---
Author Organization [facility] [place] [address] Care Team Providers Care Die Grinder Name Role Phone Junaid, Deborah Shields APRN Primary Care Provider [phone] Encounter Details Date Type Department Care Team (Late st Contact Info) Description 05/19/2016 10:00 AM EDT Office [place] [phone] Alirio Esparza MD Nonrheumatic aortic valve stenosis [...] EST Hospital Encounter Outpatient [place] [address] Markel Borjas MD [facility] [address] [place] [address] 06/05/2024 2:00 PM EST - 06/05/2024 3:00 PM EST Surgery Outpatient [place] [address] Markel Borjas MD [facility] [address] [place] [address] (OSC MSURG) BONE MARROW BIOPSY AND ASPIRATION; DIAGNOSTIC (WRVU 1.44) 06/23/2024 2:00 PM EST Office Visit [place]ematology [place] [address] Markel Borjas MD [facility] [place] [address] 03/01/2025 4:15 PM EDT Office Visit Dermatology at [place] [address] [place] [phone] Marek Bonilla MD [address], [place] [address] Scheduled Procedures Name Priority Associated Diagnoses Date/Ti [...] (Bezet) 448 ms MUSE SYSTEM Calculated P Hannacroix 37 degrees MUSE SYSTEM Calculated R Hannacroix 31 degrees MUSE SYSTEM Calculated T Hannacroix 25 degrees MUSE SYSTEM INTERPRETATION Normal sinus [...] the following links into your internet browser. [email or web address] Blood specimen (specimen) 05/19/2016 11:32 AM EDT 05/19/2016 11:41 AM EDT Narrative Resulting Agency Comment Spec In Lab Alirio Esparza MD CHEMISTRY ORDERABLE S [facility] [place] [address] documented in this encounter Visit Diagnoses Diagnosis Nonrheumatic aortic valve stenosis Aortic valve disorders Nonrheumatic aortic valve stenosis Aortic valve disorders documented in this encounter Care Teams Die Grinder Relationship Specialty Start Date End Date Deborah Quiroga APRN PCP - General Family Medicine 03/24/16 02/04/23 documented as of this encounter
--- OUTSIDE RECORDS SUMMARY | 2024-05-23 14:11 | XMS_ITS | Encounter Summary ---
Author Organization [facility] [place] [address] Care Team Providers Care Automotive Product Engineer Name Role Phone Eitan Danni ANURAG Primary Care Provider [phone] Encounter Details Date Type Department Care Team (Late st Contact Info) Description 01/23/2014 9:25 AM EDT - 01/23/2014 10:25 AM EDT [place] [address] Alan Jacobson MD [facility] [place] [address] CARDIAC CATHETERIZATION Social History Tobacco Use Types [...] by your doctor, do not take any dxxd-vtd-stehlpu medicines or herbal preparations without first discussing this with your doctor or pharmacist. There is the possibility of side effect and interactions when these are combined. Follow up Care Who to Call with Questions or Problems If there are any questions or problems that you think might be related to your cardiac cath or angioplasty, contact the pressure dispatcher sandstone inspector repairer by calling [facility] at . documented in this encounter [...] PM EST Hospital Encounter [place]patient [place] [address] Markel Borjas MD [facility] [address] [place] [address] 06/05/2024 2:00 PM EST - 06/05/2024 3:00 PM EST Surgery [place] [phone] Markel Borjas MD [facility] [address] [place] [address] (OSC MSURG) BONE MARROW BIOPSY AND ASPIRATION; DIAGNOSTIC (WRVU 1.44) 06/23/2024 2:00 PM EST Office Visit [place] [phone] Markel Borjas MD [facility] [address] [place] [address] 03/01/2025 4:15 PM EDT Office Visit Dermatology at [place] [address] [place] [address] Marek Bonilla MD [address] DERMATOLOGY [place], [place] [address] Scheduled Procedures Name Priority Associated Diagnoses Date/Ti [...] ? ANDREW Mejias ?(Age): 1955(58) Med Rec#: ?[id number] ? Sex: ?F ? Site Loc: [facility] ? Ht / Wt: ??158(cm)/93(kg) Pt. Loc: ? Adult Floor ?BSA: ?2.02 Study Date: ?01/23/2014 ? Pt. Type: Inpatient Tape: ? Referring: Lee Kincaid ([id number]) Referring: ANNALISA Electric Range Servicer: Miguel Beverly Diagnosis:CPT Code(s): ??Echo Full (04297), ??Spectral Doppler (71716), Color Doppler (80492), Indication(s): ??Aortic stenosis Rhythm: Sinus HR ?BP [...] ? Mid-Inferior ?Hypokinetic ? Mid-Inferoseptal ?Hypokinetic ? [place]-Septal ? Hypokinetic ? [place]-Anterior ? Hypokinetic ? [place]-Lateral ?Hypokinetic ? [place]-Inferior ? Hypokinetic ? [place]-Tip ?Hypokinetic ? Chambers ?Value ?Units (Range) ? [...] 01/23/2014 16:34:37 Images reviewed and interpretation verified [facility] Cardiac Ultrasound Laboratory Procedure Note Lee Kincaid MD - 01/23/2014 Procedure: Transthoracic Echocardiogram Patient: ANDREW Mejias (Age): 1955(58) Med Rec#: [id number] Sex: F Site Loc: [facility] Ht / Wt: 158(cm)/93(kg) Pt. Loc: Adult Floor BSA: 2.02 Study Date: 01/23/2014 Pt. Type: Inpatient Tape: Referring: Lee Kincaid ([id number]) Referring: ANNALISA Electric Range Servicer: Miguel Beverly Diagnosis:CPT Code(s): Echo Full (73809), Spectral Doppler (20846), Color Doppler (12313), Indication(s): Aortic stenosis Rhythm: Sinus HR BP [...] Hypokinetic Mid-Posterolateral Hypokinetic Mid-Inferior Hypokinetic Mid-Inferoseptal Hypokinetic [place]-Septal Hypokinetic [place]-Anterior Hypokinetic [place]-Lateral Hypokinetic [place]-Inferior Hypokinetic [place]-Tip Hypokinetic Chambers Value Units (Range) IVSd 2D [...] 01/23/2014 16:34:37 Images reviewed and interpretation verified [facility] Cardiac Ultrasound Laboratory Lee Kincaid MD [...] Stern RN)[id number] (Given - Provider: Nitesh Stern, VALDO) fentaNYL 50mcg/mL injection (CANCELED) ONCE PRN, Starting [...] RN) documented in this encounter Care Teams Automotive Product Engineer Relationship Specialty Start Date End Date Danni Laird APRN [address] [place] [id number] PCP - General 01/23/14 11/11/14 documented as of this encounter
--- OUTSIDE RECORDS SUMMARY | 2024-05-23 14:11 | XMS_ITS | Encounter Summary ---
Author Organization [facility] [place] [address] Care Team Providers Care Deputy Sheriff Civil Division Name Role Phone Deborah Quiroga ANURAG Primary Care Provider [phone] Encounter Details Date Type Department Care Team (Late st Contact Info) Description 05/22/2016 Orders Only Cardiology at [address] [phone] Chele Randolph PA [facility] [place] [address] Aortic valve stenosis, unspecified etiology Social History [...] PM EST Hospital Encounter Outpatient [place] [phone] Markel Borjas MD [facility] [address] [place] [address] 06/05/2024 2:00 PM EST - 06/05/2024 3:00 PM EST Surgery [facility] [place] [address] Markel Borjas MD [facility] [address] [place] [address] (OSC MSURG) BONE MARROW BIOPSY AND ASPIRATION; DIAGNOSTIC (WRVU 1.44) 06/23/2024 2:00 PM EST Office Visit [place]ematology [place] [phone] Markel Borjas MD [facility] [address] [place] [address] 03/01/2025 4:15 PM EDT Office Visit Dermatology at [place] [address] [place] [address] Marek Bonilla MD [address] [place] [address] Scheduled Procedures Name Priority Associated Diagnoses Date/Ti [...] Modality Other Narrative 06/03/2016 10:13 AM EDT ?[facility] ? Cardiac Catheterization/Intervention Report ? Patient Name: Kirstie, Purnima M. ? Procedure Date: 06/03/2016 ? A #: [id number] ? Primary Physician: Fanny, Nitesh Shields ? Case #: [id number] ? File Name: [id number] ? Catheterization Order Number: [id number] ? [facility] ? Final Report [place], [place] ? Patient Name: ? Purnima M. Kirstie ? ID#: ?[id number] ? : ?1955 ? Procedure Date: ? June 03, 2016 ? Case #: ? [id number] ? Room: ? 1 ? Case Physician: [...] no symptom, no angina (w/i 14 days). Polish ?Cardiovascular Society angina class was 0. This [...] Procedure Note Nitesh Escobedo MD - 09/21/2016 [facility] Cardiac Catheterization/Intervention Report Patient Name: Purnima Thacker Procedure Date: 06/03/2016 A #: [id number] Primary Physician: Nitesh Escobedo Case #: [id number] File Name: [id number] Catheterization Order Number: [id number] [facility] FinalReport [place], [place] Patient Name: Purnima Thacker ID#:[id number] :1955 Procedure Date: June 03, 2016 Case [...] with: no symptom, no angina (w/i 14 days).[place] Cardiovascular Society angina class was 0. This [...] etiology documented in this encounter Care Teams Deputy Sheriff Civil Division Relationship Specialty Start Date End Date Deborah Quiroga, VICE PRESIDENT RESIDENTIAL [employer] SALES PCP - General Family Medicine 03/24/16 02/04/23 documented as of this encounter
--- OUTSIDE RECORDS SUMMARY | 2024-05-23 14:11 | XMS_ITS | Encounter Summary ---
[place] [address] Care Team Providers Care Tumbler Dyeing Machine Operator Name Role Phone Mitchell Wilkes MD Primary Care Provider [phone] Reason for Visit * Reason Onset Date Comments Other 01/18/2014 Encounter Details Date Type Department Care Team (Late st Contact Info) Description 01/18/2014 Telephone Cardiology at [address] [phone] Jesusiat Garces Other Social History Tobacco Use Types [...] PM EST Hospital Encounter [place] [address] Markel Borjas MD [facility] DR [place] [address] 06/05/2024 2:00 PM EST - 06/05/2024 3:00 PM EST Surgery [place] [address] Markel Borjas MD [facility] DR [place] [address] (OSC MSURG) BONE MARROW BIOPSY AND ASPIRATION; DIAGNOSTIC (WRVU 1.44) 06/23/2024 2:00 PM EST Office Visit [place]ology [place] [address] Markel Borjas MD [facility] DR [place] [address] 03/01/2025 4:15 PM EDT Office Visit Dermatology at [place] [address] [facility] [place] [address] Marek Bonilla MD [address], [place] [address] Scheduled Procedures Name Priority Associated Diagnoses Date/Ti me (OSC MSURG) BONE MARROW BIOPSY AND ASPIRATION; DIAGNOSTIC (WRVU 1.44) Anemia, in pt with longstanding neutropenia 06/05/2024 2:00 PM EST documented as of this encounter Visit Diagnoses Not on filedocumented in this encounter Care Teams Tumbler Dyeing Machine Operator Relationship Specialty Start Date End Date Mitchell Wilkes MD [facility] PCP - General 06/24/10 01/19/14 documented as of this encounter
--- OUTSIDE RECORDS SUMMARY | 2024-05-23 14:11 | XMS_ITS | Encounter Summary ---
Author Organization [facility] [place] [address] Care Team Providers Care Prop Worker Name Role Phone Ashley Quirogan Sylvia ANURAG Primary Care Provider [phone] Encounter Details Date Type Department Care Team (Late st Contact Info) Description 06/09/2016 Orders Only [place]ematology [place] [phone] Nitesh Pina Jr., MD [facility] DR HEMATOLOGY [place] [address] Cyclical neutropenia Social History Tobacco Use Types [...] PM EST Hospital Encounter [place] [place] [address] Markel Borjas MD [facility] DR HEMATOLOGY [place] [address] 06/05/2024 2:00 PM EST - 06/05/2024 3:00 PM EST Surgery [place] [address] Markel Borjas MD [facility] DR HEMATOLOGY [place] [address] (OSC MSURG) BONE MARROW BIOPSY AND ASPIRATION; DIAGNOSTIC (WRVU 1.44) 06/23/2024 2:00 PM EST Office Visit [place]ology [place] [address] Markel Borjas MD [facility] DR HEMATOLOGY [place] [address] 03/01/2025 4:15 PM EDT Office Visit Dermatology at [place] [address] [place] [address] Marek Bonilla MD [address], [place] [address] Scheduled Procedures Name Priority Associated Diagnoses Date/Ti me (OSC MSURG) BONE MARROW BIOPSY AND ASPIRATION; DIAGNOSTIC (WRVU 1.44) Anemia, in pt with longstanding neutropenia 06/05/2024 2:00 PM EST documented as of this encounter Results * Immunophenotyping Flow Cytometry (06/09/2016 4:53 PM EST) Immunophenotyping Flow See Comment [facility] Comment: When completed by the Pathologist, the Flow Cytometry Report ([id number]) will display under the Pathology Results section within eDH. Specimen of unknown material (specimen) 06/09/2016 4:53 PM EST 06/09/2016 5:00 PM EST Narrative Resulting Agency Comment Spec In Lab Nitesh Pina Jr., MD HEMATOLOGY ORDERABLE S [facility] [place] [address] documented in this encounter Visit Diagnoses Diagnosis Cyclical neutropenia Cyclic neutropenia documented in this encounter Care Teams Prop Worker Relationship Specialty Start Date End Date Deborah Quiroga APRN PCP - General Family Medicine 03/24/16 02/04/23 documented as of this encounter
[2024-05-23 14:25] VITALS: BP 113/58; PULSE 88
--- OUTSIDE RECORDS SUMMARY | 2024-05-25 14:07 | XMS_ITS | Encounter Summary ---
Author Organization [facility] Address [address] [place] [address] Care Team Providers Care Drug Discovery Informatics Specialist Name Role Phone Ashley Chavez Primary Care Provider [phone] Encounter Details Date Type Department Care Team (Late st Contact Info) Description 04/29/[address] [facility] Pathology & Laboratory Medicine - [address] [address] Outr Resulting Lab, Provider Social History Tobacco [...] Antibody 1.6 <20.0 Units 04/30/2022 12:23 EDT [facility] Comment: ? Negative: <20.0 [...] SEROLOGY ORDERABLES Performing Organization Address [facility] de Phone Number [facility] [address] [place] [address] * SSA ANTIBODIES BY DOMO (04/29/2022 7:51 EDT) SSA Antibody 1.5 <20.0 Units 04/30/2022 12:22 EDT [facility] Comment: ? Negative: <20.0 [...] SEROLOGY ORDERABLES Performing Organization Address [facility] de Phone Number [facility] [address] [place] [address] documented in this encounter Visit Diagnoses Not on filedocumented in this encounter Care Teams Drug Discovery Informatics Specialist Relationship Specialty Start Date End Date Ashley Chavez ARNP [address] [place] [address] PCP - General 07/11/10 documented as of this encounter
--- OUTSIDE RECORDS SUMMARY | 2024-05-25 14:07 | XMS_ITS | Encounter Summary ---
Author Organization [facility] Address [address] [place] [address] Care Team Providers Care Chair Name Role Phone Scott, Ashley WILLIAM Primary Care Provider [phone] Encounter Details Date Type Department Care Team (Late st Contact Info) Description 03/21/2024 Lab Requisition [facility] Pathology & Laboratory Medicine - [address] [address] Consuelo Guerrero, DO [address] [place], [place] [address] Encounter for other general examination Social History [...] 13:00 EDT) LORY Negative 03/21/2024 22:31 EDT [facility] B[facility]OD [facility] Blood VENOUS BLOOD / Unknown 03/21/2024 13:00 EDT 03/21/2024 21:51 EDT Consuelo Guerrero DO BLOOD BANK TESTS [facility] [address] [place] [address] documented in this encounter Visit Diagnoses Diagnosis Encounter for other general examination documented in this encounter Care Teams Chair Relationship Specialty Start Date End Date Ashley Chavez ARNP [address] [place] [address] PCP - General 07/11/10 documented as of this encounter
--- OUTSIDE RECORDS SUMMARY | 2024-05-25 14:07 | XMS_ITS | Encounter Summary ---
Author Organization [facility] Address [address] [place] [address] Care Team Providers Care Program Checker Name Role Phone Scott Ashley WILLIAM Primary Care Provider [phone] Encounter Details Date Type Department Care Team (Late st Contact Info) Description 05/12/2019 Results Only [facility] [phone] Nadira Gregorio MD [address] [place] [phone] Social History Tobacco Use Types Packs/Day [...] ? PURNIMA THACKER ? Accession #: ? [id number] ? : ? 1955 (Age: 63) ??F ? Collect Date: ? 05/12/2019 ? Location: ? [facility] ? Receive Date: ? 05/12/2019 ? Provider: NADIRA GREGORIO MD Copy to: WINTER HANKINS RIDING SILKS CUSTODIAN ? Final Pathologic Diagnosis: COLON, CECUM, POLYP, [...] (ASCP) 05/12/2019 6:08 PM End of Report [facility] 05/12/2019 16:0 3 EDT 05/12/2019 16:03 EDT Nadira Gregorio MD PATHOLOGY ORDERABLES [facility] [address] [place] [address] documented in this encounter Visit Diagnoses Not on filedocumented in this encounter Care Teams Program Checker Relationship Specialty Start Date End Date Ashley Chavez ARNP [address] [place] [address] PCP - General 07/11/10 documented as of this encounter
--- OUTSIDE RECORDS SUMMARY | 2024-05-25 14:07 | XMS_ITS | Encounter Summary ---
Author Organization [facility] Address [address] [place] [address] Care Team Providers Care Patient Support Representative Name Role Phone Unavailable Primary Care Provider Unavailabl e Encounter Details Date Type Department Care Team (Late st Contact Info) Description 07/08/2010 10:55 EST - 07/08/2010 10:56 EST Hospital Encounter [facility] - Other [address] [place] [address] Ashley Chavez, WILLIAM [address] [place] [address] Discharge Disposition: Home or Self Care Social [...]
--- OUTSIDE RECORDS SUMMARY | 2024-05-25 14:07 | XMS_ITS | Encounter Summary ---
Author Organization [facility] Address [address] [place] [address] Care Team Providers Care Table Machine Operator Name Role Phone Unavailable Primary Care Provider Unavailabl e Encounter Details Date Type Department Care Team (Late st Contact Info) Description 07/08/2010 Results Only [facility] Non-Invasive Cardiology - [facility] [address] [place] [address] Ashley Chavez, WILLIAM [address] [place] [address] Social History Tobacco Use Types Packs/Day Years [...] ? PURNIMA THACKER ? Accession #: ? [id number] ? : ? 1955 (Age: 54) ??F [...] Ashley THOMAS PATHOLOGY ORDERABLES [facility] ARELL[facility] [address] [place] [address] documented in this encounter Visit Diagnoses Not on filedocumented in this encounter
--- OUTSIDE RECORDS SUMMARY | 2024-05-25 14:07 | XMS_ITS | Clinical Summary ---
Author Organization [facility] Address [address] [place] [address] Care Team Providers Care Lay Out Inspector Name Role Phone Ashley Chavez Primary Care Provider [phone] Encounters Date Type Department Care Team Description 03/22/2024 Lab Requisition [facility] Pathology & Laboratory [address] [address] Consuelo Guerrero, DO Diaphragmatic hernia without obstruction or gangrene; Anemia, unspecified 03/21/2024 Lab Requisition [facility] Pathology & Laboratory [address] [address] Consuelo Guerrero, DO Encounter for other general examination 03/21/2024 Lab Requisition [facility] Pathology & Laboratory [address] [address] Outr Resulting Lab, Provider from Last 3 [...] 13:00 EDT) LORY Negative 03/21/2024 22:31 EDT [facility] BLOOD BANK Blood VENOUS BLOOD / Unknown 03/21/2024 13:00 EDT 03/21/2024 21:51 EDT Consuelo Guerrero DO BLOOD BANK TESTS Performing Organization Address [facility] Co de Phone Number [facility] BLOOD BANK [address] [place] [address] * HAPTOGLOBIN (03/21/2024 13:00 EDT) Haptoglobin 183 32 - 197 mg/dL 03/22/2024 10:25 EDT [facility] Blood VENOUS BLOOD / Unknown 03/21/2024 13:00 EDT 03/21/2024 21:50 EDT Provider Outr Resulting Lab CHEMISTRY & BLOOD GAS ORDERABLES Performing Organization Address [facility]/ZIP Co de Phone Number [facility] [address] [place], [place] [address] * SURGICAL PATHOLOGY (03/21/2024 11:35 EDT) Note to Patient The following pathology results have been interpreted by your pathologist and may be available to you before your health provider has had the opportunity to review them. Please allow time for your provider to receive these results and explore management options, if applicable. 03/24/2024 10:36 EDT [facility] Final Diagnosis A. JEJUNUM, PROXIMAL, [...] - Deeper sections x3 examined. 03/24/2024 10:36 [facility] Attestation There was significant resident/fellow involvement in the diagnostic evaluation of this case. By the signature below, the attending physician certifies that they have personally conducted a gross and/or microscopic examination of the described specimens and rendered or confirmed the above diagnosis. 03/24/2024 10:36 [facility] at [address] Clinical History Anemia, hiatal hernia, 38 cm aguayo diverticulosis 03/24/2024 10:36 [facility] Gross [...] Luis Torres 03/22/2024 9:36 03/24/2024 10:36 EDT [facility] Resident/Estuardo w: Luis Felipe Bragg DO 03/24/2024 10:36 EDT [facility] Performing Lab [facility] 10:36 EDT [facility] Scanned Images 03/24/2024 10:36 EDT [facility] Tissue POLYP OF COLON / [...] ORDERABLES [facility] [address] [place] [address] from Last 3 Months Care Teams Lay Out Inspector Relationship Specialty Start Date End Date Ashley Chavez ARNP [address] [place] [address] PCP - General 07/11/10
--- OUTSIDE RECORDS SUMMARY | 2024-05-25 14:07 | XMS_ITS | Encounter Summary ---
Author Organization [facility] Address [address] [place] [address] Care Team Providers Care Billboard Erector Helper Name Role Phone Ashley Chavez Primary Care Provider [phone] Encounter Details Date Type Department Care Team (Latest Contact Info) Description 05/12/2019 13:18 EDT - 05/12/2019 23:59 EDT Hospital Encounter [address] [address] Unknown, Provider, Discharge Disposition: Home or Self [...] on filedocumented in this encounter Care Teams Billboard Erector Helper Relationship Specialty Start Date End Date Ashley Chavez ARNP [address] [place] [address] PCP - General 07/11/10 documented as of this encounter
--- OUTSIDE RECORDS SUMMARY | 2024-05-25 14:07 | XMS_ITS | Encounter Summary ---
Author Organization [facility] Address [address] [place] [address] Care Team Providers Care Arson And Bomb Investigator Name Role Phone Ashley Chavez Primary Care Provider [phone] Encounter Details Date Type Department Care Team (Late st Contact Info) Description 03/21/2024 Lab Requisition [facility] Pathology & Laboratory Medicine - [address] [address] Outr Resulting Lab, Provider Social History Tobacco [...] 32 - 197 mg/dL 03/22/2024 10:25 EDT [facility] Blood VENOUS BLOOD / Unknown 03/21/2024 13:00 EDT 03/21/2024 21:50 EDT Provider Outr Resulting Lab CHEMISTRY & BLOOD GAS ORDERABLES [facility] [address] [place] [address] documented in this encounter Visit Diagnoses Not on filedocumented in this encounter Care Teams Arson And Bomb Investigator Relationship Specialty Start Date End Date Ashley Chavez ARNP [address] [place] [address] PCP - General 07/11/10 documented as of this encounter
--- OUTSIDE RECORDS SUMMARY | 2024-05-25 14:07 | XMS_ITS | Referral Summary ---
Author Organization [facility] Address [address] [place] [address] Care Team Providers Care Shore Working Supervisor Name Role Phone Ashley Chavez Primary Care Provider [phone] Encounters Date Type Department Care Team Description 03/22/2024 Lab Requisition [facility] Pathology & Laboratory [address] [address] Consuelo Guerrero, DO Diaphragmatic hernia without obstruction or gangrene; Anemia, unspecified 03/21/2024 Lab Requisition [facility] Pathology & Laboratory [address] [address] Consuelo Guerrero DO Encounter for other general examination 03/21/2024 Lab Requisition [facility] Pathology & Laboratory [address] [address] Outr Resulting Lab, Provider from Last 3 [...] BANK TESTS Performing Organization Address [facility] Co de Phone Number [facility] B[facility]OD BANK [address] [place] [address] * HAPTOGLOBIN (03/21/2024 13:00 EDT) Haptoglobin 183 32 - 197 mg/dL 03/22/2024 10:25 EDT [facility] Blood VENOUS BLOOD / Unknown 03/21/2024 13:00 EDT 03/21/2024 21:50 EDT Provider Outr Resulting Lab CHEMISTRY & BLOOD GAS ORDERABLES Performing Organization Address [facility] Co de Phone Number [facility] [address] [place] [address] * SURGICAL PATHOLOGY (03/21/2024 11:35 EDT) Note [...] - Deeper sections x3 examined. 03/24/2024 10:36 [facility] Attestation There was significant resident/fellow involvement in the diagnostic evaluation of this case. By the signature below, the attending physician certifies that they have personally conducted a gross and/or microscopic examination of the described specimens and rendered or confirmed the above diagnosis. 03/24/2024 10:36 [facility] at [address] Clinical History Anemia, hiatal hernia, 38 cm aguayo diverticulosis 03/24/2024 10:36 [facility] Gross Description [...] [facility] Performing Lab [facility] 10:36 EDT [facility] [...] ORDERABLES [facility] [address] [place] [address] from Last 3 Months Care Teams Shore Working Supervisor Relationship Specialty Start Date End Date Ashley Chavez ARNP [address] [place] [address] PCP - General 07/11/10
--- OUTSIDE RECORDS SUMMARY | 2024-05-25 14:07 | XMS_ITS | Encounter Summary ---
Author Organization [facility] Address [address] [place] [address] Care Team Providers Care Oracle Distribution Consultant Name Role Phone Scott Ashley WILLIAM Primary Care Provider [phone] Encounter Details Date Type Department Care Team (Late st Contact Info) Description 11/10/2013 Results Only [facility] [phone] Jeni Laird, GENERAL CLAIMS AGENT [address] [place], [place] [phone] Social History Tobacco Use Types Packs/Day Years [...] ? PURNIMA THACKER ? Accession #: ? [id number] : ? 1955 (Age: 58) ??F ?Collect Date: ? 11/10/2013 Location: ? [facility] ? Receive Date: ? 11/14/2013 Provider: ?JENI LAIRD GENERAL CLAIMS AGENT Copy to: ? Specimen/Source: ?Pap Test, Endocervix, [...] Report [facility] 11/10/2013 11/14/2013 Jeni Laird GENERAL CLAIMS AGENT PATHOLOGY ORDERAB LES Performing Organization Address City/State/[facility] Co de Phone Number PAUL ARELLANO [address] [place] [address] documented in this encounter Visit Diagnoses Not on filedocumented in this encounter Care Teams Oracle Distribution Consultant Relationship Specialty Start Date End Date Ashley Chavez ARNP [address] [place] [address] PCP - General 07/11/10 documented as of this encounter
--- OUTSIDE RECORDS SUMMARY | 2024-05-25 14:07 | XMS_ITS | Encounter Summary ---
Author Organization [facility] Address [address] [place] [address] Care Team Providers Care Saw Edge Fuser Circular Name Role Phone Unavailable Primary Care Provider Unavailabl e Encounter Details Date Type Department Care Team (Late st Contact Info) Description 03/24/2007 Results Only [facility] Non-Invasive Cardiology - [facility] [address] [place], [place] [address] Ashley Chavez ARNP [address] [place] [address] Social History Tobacco Use Types Packs/Day Years [...] ? PURNIMA THACKER ? Accession #: ? [id number] : ? 1955 (Age: 51) ??F ?Collect Date: ? 03/24/2007 Location: ? [facility] ? Receive Date: ? 03/28/2007 Provider: ?ASHLEY THOMAS Copy to: ? Specimen/Source: ?ThinPrep Pap Test, Endocervix, processed on [employer] ThinPrep Imaging System, with manual evaluation Last [...] Ashley THOMAS PATHOLOGY ORDERABLES [facility] ARELLANO [address] [place] [address] documented in this encounter Visit Diagnoses Not on filedocumented in this encounter
--- OUTSIDE RECORDS SUMMARY | 2024-05-25 14:07 | XMS_ITS | Encounter Summary ---
Author Organization [facility] Address [address] [place] [address] Care Team Providers Care Asparagus Cutter Name Role Phone Unavailable Primary Care Provider Unavailabl e Encounter Details Date Type Department Care Team (Late st Contact Info) Description 03/24/2007 11:06 EDT - 03/24/2007 11:59 EDT Hospital Encounter [facility] - Other [address] [place] [address] Ashley Chavez ARNP [address] [place] [address] Discharge Disposition: Home or Self Care Social [...]
--- OUTSIDE RECORDS SUMMARY | 2024-05-25 14:07 | XMS_ITS | Encounter Summary ---
Author Organization [facility] Address [address] [place] [address] Care Team Providers Care Cherry Pitter Name Role Phone Unavailable Primary Care Provider Unavailabl e Encounter Details Date Type Department Care Team (Late st Contact Info) Description 04/20/2005 Results Only [facility] [address] [place] [address] Ziggy Valiente MD [address] [place] [id number] Social History Tobacco Use Types Packs/Day Years [...] ? PURNIMA THACKER ? Accession #: ? [id number] ? : ? 1955 (Age: 49) ??F [...] correlation with endoscopic appearance is recommended. (Dr. Chino)/[facility] Document reviewed and electronically signed by: [...] is entirely submitted in one cassette. ??(Arabella Santos)/[facility] End of Report PAUL ARELLANO 04/20/2005 04/21/2005 15: 04 EDT Ziggy Valiente MD PATHOLOGY ORDERABLES [facility] ARELL[facility] [address] [place] [address] documented in this encounter Visit Diagnoses Not on filedocumented in this encounter
--- OUTSIDE RECORDS SUMMARY | 2024-05-25 14:07 | XMS_ITS | Encounter Summary ---
Author Organization [facility] Address [address] [place] [address] Care Team Providers Care Precast Molder Name Role Phone Ashley Chavez Primary Care Provider [phone] Encounter Details Date Type Department Care Team (Late st Contact Info) Description 12/17/[address] [facility] Pathology & Laboratory Medicine - [address] [id number] Outr Resulting Lab, Provider Social History Tobacco [...] Lyme Ab Negative Negative 12/18/2021 10:37 EDT [facility] Blood VENOUS BLOOD / Unknown 12/17/2021 13:30 EDT 12/17/2021 21:32 EDT Provider Outr Resulting Lab IMMUNOLOGY A ND SEROLOGY ORDERABLES Performing Organization Address [facility] Co de Phone Number [facility] [address] [place] [address] * (ABNORMAL) ANTI NUCLEAR AB (FRANCISCO), IFA (12/17/2021 13:30 EDT) FRANCISCO Interpretation Positive(A) Negative 12/18/2021 16:06 EDT [facility] Comment: For titers [...] Pattern 1 1:1280 Speckled 12/18/2021 16:06 EDT [facility] Blood VENOUS BLOOD / Unknown 12/17/2021 13:30 EDT 12/17/2021 21:32 EDT Narrative [facility] - 12/18/2021 16:06 EDT Results were obtained with the INOVA NOVA Lite HEp-2 FRANCISCO Kit by indirect immunofluorescence. Provider Outr Resulting Lab IMMUNOLOGY A ND SEROLOGY ORDERABLES Performing Organization Address [facility] Co de Phone Number [facility] [address] [place] [address] documented in this encounter Visit Diagnoses Not on filedocumented in this encounter Care Teams Precast Molder Relationship Specialty Start Date End Date Ashley Chavez ARNP [address] [place] [address] PCP - General 07/11/10 documented as of this encounter
--- OUTSIDE RECORDS SUMMARY | 2024-05-25 14:07 | XMS_ITS | Encounter Summary ---
Author Organization [facility] Address [address] [place] [address] Care Team Providers Care Machine Feeder Raw Stock Name Role Phone Ashley Chavez Primary Care Provider [phone] Encounter Details Date Type Department Care Team (Late st Contact Info) Description 03/22/2024 Lab Requisition [facility] Pathology & Laboratory Medicine - [address] [address] Consuelo Guerrero, DO [address] [place], [place] [id number] Diaphragmatic hernia without obstruction or gangrene; Anemia, [...] explore management options, if applicable. 03/24/2024 10:36 [facility] Final Diagnosis A. JEJUNUM, [...] - Deeper sections x3 examined. 03/24/2024 10:36 [facility] Attestation There was significant resident/fellow involvement in the diagnostic evaluation of this case. By the signature below, the attending physician certifies that they have personally conducted a gross and/or microscopic examination of the described specimens and rendered or confirmed the above diagnosis. 03/24/2024 10:36 [facility] at 1036 Clinical History Anemia, hiatal hernia, 38 cm aguayo diverticulosis 03/24/2024 10:36 [facility] Gross Description A. Received [...] Luis Torres 03/22/2024 9:36 03/24/2024 10:36 EDT [facility] Resident/Estuardo w: Luis Felipe Bragg DO 03/24/2024 10:36 T [facility] Performing Lab [facility] 10:36 T [facility] Scanned Images 03/24/2024 10:36 T [facility] Tissue POLYP OF COLON / [...] 8:19 EDT Consuelo Guerrero DO PATHOLOGY ORDERABLES [facility] [address] [place] [address] documented in this encounter Visit Diagnoses Diagnosis Diaphragmatic hernia without obstruction or gangrene Diaphragmatic hernia without mention of obstruction or gangrene Anemia, unspecified documented in this encounter Care Teams Machine Feeder Raw Stock Relationship Specialty Start Date End Date Ashley Chavez ARNP [address] [place] [address] PCP - General 07/11/10 documented as of this encounter
--- OUTSIDE RECORDS SUMMARY | 2024-05-25 14:07 | XMS_ITS | Encounter Summary ---
Author Organization Health system Address [address] [place] [address] Care Team Providers Care Bonbon Cream Warmer Name Role Phone Ashley Chavez Primary Care Provider [phone] Encounter Details Date Type Department Care Team (Late st Contact Info) Description 01/07/2023 Lab Requisition [facility] Pathology & Laboratory Medicine - [address] [address] Outr Resulting Lab, Provider Social History Tobacco [...] 56.2 55.8 - 66.1 % 01/08/2023 11:28 [facility] Albumin g/dL 3.9 3.6 - 5.2 g/dL 01/08/2023 11:28 [facility] Alpha-1 % 5.1(H) 2.9 - 4.9 % 01/08/2023 11:28 [facility] Alpha-1 g/dL 0.40 0.15 - 0.40 g/dL 01/08/2023 11:28 [facility] Alpha-2 % 7.0(L) 7.1 - 11.8 % 01/08/2023 11:28 [facility] Alpha-2 g/dL 0.50 0.50 - 1.00 g/dL 01/08/2023 11:28 [facility] Beta % 12.7 8.4 - 13.1 % 01/08/2023 11:28 [facility] Beta g/dL 0.90 0.60 - 1.20 g/dL 01/08/2023 11:28 [facility] Gamma % 19.0(H) 11.1 - 18.8 % 01/08/2023 11:28 [facility] Gamma g/dL 1.30 0.60 - 1.60 g/dL 01/08/2023 11:28 [facility] SPEP Comment No apparent monoclonal protein seen on serum electrophoresis 01/08/2023 11:28 [facility] Comment:See scanned/suppleme ntary report. Total Protein 6.9 6.3 - 8.2 g/dL 01/08/2023 11:28 [facility] Blood VENOUS BLOOD / Unknown 01/06/2023 14:40 EDT 01/07/2023 17:37 EDT Provider Outr Resulting Lab CHEMISTRY & BLOOD GAS ORDERABLES Performing Organization Address City/State/[facility] Co de Phone Number [facility] [address] [place] [address] * PROTEIN, TOTAL (01/06/2023 14:40 EDT) Blood VENOUS BLOOD / Unknown 01/06/2023 14:40 EDT 01/07/2023 17:37 EDT Provider Outr Resulting Lab CHEMISTRY & BLOOD GAS ORDERABLES Performing Organization Address [facility] Co de Phone Number [facility] [address] [place] [address] * (ABNORMAL) EXTRACTABLE NUCLEAR ANTIGEN PANEL (01/06/2023 14:40 EDT) SSA Antibody 1.3 <20.0 Units 01/08/2023 15:42 EDT [facility] Comment: ? Negative: <20.0 [...] <20.0 Units 01/08/2023 15:42 EDT [facility] Comment: ? Negative: <20.0 [...] <20.0 Units 01/08/2023 15:42 EDT [facility] Comment: ? Negative: <20.0 Units ? Weak Positive: 20.0 - 39.9 Units ? Moderate Positive: 40.0 - 80.0 Units ? Strong Positive: >80.0 Units Results were obtained with the HihoCoderVA QUANTA Lite Sm DOMO. ??Sm values obtained with different manufacturers' assay methods may not be used interchangeably. ??The magnitude of the reported IgG levels cannot be correlated to an endpoint titer. MICROARRAY ANALYST Antibody 149.1(H) <20.0 Units 01/08/2023 15:42 EDT [facility] Comment: ? Negative: <20.0 Units ? Weak Positive: 20.0 - 39.9 Units ? Moderate Positive: 40.0 - 80.0 Units ? Strong Positive: >80.0 Units Results were obtained with the ZAOZAOva Quanta Lite MICROARRAY ANALYST DOMO. MICROARRAY ANALYST values obtained with different wood pole treater's assay methods may not be used interchangeaby. ??The magnitude of the reported IgG levels cannot be be correlated to an endpoint titer. A positive result in the Quanta Lite MICROARRAY ANALYST DOMO indicates the presence of antibodies reactive with the MICROARRAY ANALYST/Sm complex but cannot distinguish between anti-Sm and anti-MICROARRAY ANALYST activity. Blood VENOUS BLOOD / Unknown 01/06/2023 14:40 EDT 01/07/2023 17:37 EDT Provider Outr Resulting Lab IMMUNOLOGY A ND SEROLOGY ORDERABLES [facility] [address] [place] [address] * (ABNORMAL) ANTI NUCLEAR AB (FRANCISCO), IFA (01/06/2023 14:40 EDT) FRANCISCO Interpretation Positive(A) Negative 01/08/2023 15:22 EDT [facility] Comment: Result is equal [...] 1:5120 Speckled 01/08/2023 15:22 EDT [facility] Blood VENOUS BLOOD / Unknown 01/06/2023 14:40 EDT 01/07/2023 17:37 EDT Narrative [facility] - 01/08/2023 15:22 EDT Results were obtained with the INOVA NOVA Lite HEp-2 FRANCISCO Kit by indirect immunofluorescence. Provider Outr Resulting Lab IMMUNOLOGY A ND SEROLOGY ORDERABLES Performing Organization Address City/State/[facility] Co de Phone Number [facility] [address] [place] [address] documented in this encounter Visit Diagnoses Not on filedocumented in this encounter Care Teams Bonbon Cream Warmer Relationship Specialty Start Date End Date Ashley Chavez ARNP [address] [place] [address] PCP - General 07/11/10 documented as of this encounter
--- OUTSIDE RECORDS SUMMARY | 2024-05-25 14:07 | XMS_ITS | Encounter Summary ---
Author Organization [facility] Address [address] [place] [address] Care Team Providers Care Nephrology Nurse Name Role Phone Ashley Chavez Primary Care Provider [phone] Encounter Details Date Type Department Care Team (Late st Contact Info) Description 10/30/2022 Lab Requisition [facility] Pathology & Laboratory Medicine - [address] [address] Outr Resulting Lab, Provider Social History Tobacco [...] Stranded) <12.3 <30.0 IU/mL 11/03/2022 13:08 EDT [facility] Comment: ? Negative: ??<30.0 IU/mL ? Borderline Positive: ??30.0 - 75.0 IU/mL ? Positive: ??>75.0 IU/mL Results were obtained with the INOVA QUANTA Lite dsDNA SC DOMO assay on the Yummy77 DSX. Blood VENOUS BLOOD / Unknown 10/29/2022 14:00 EDT 10/30/2022 19:27 EDT Provider Outr Resulting Lab IMMUNOLOGY A ND SEROLOGY ORDERABLES Performing Organization Address [facility] de Phone Number [facility] [address] [place] [address] * SM (MORENO) ANTIBODY (10/29/2022 14:00 EDT) [facility] SM (Moreno) Antibody 18.5 <20.0 Units 11/03/2022 14:26 EDT [facility] Comment: ? Negative: <20.0 [...] SEROLOGY ORDERABLES Performing Organization Address [facility] de Phone Number [facility] [address] [place] [address] documented in this encounter Visit Diagnoses Not on filedocumented in this encounter Care Teams Nephrology Nurse Relationship Specialty Start Date End Date Ashley Chavez ARNP [address] [place] [address] PCP - General 07/11/10 documented as of this encounter
--- OUTSIDE RECORDS SUMMARY | 2024-05-25 14:07 | XMS_ITS | Encounter Summary ---
Author Organization [facility] Address [address] [place] [address] Care Team Providers Care Renal Medicine Specialist Name Role Phone Scott, Ashley WILLIAM Primary Care Provider [phone] Encounter Details Date Type Department Care Team (Late st Contact Info) Description 12/23/2016 Results Only [facility] [phone] Deborah Quiroga, NUCLEAR PHYSICS PROFESSOR [address] [place] [phone] Social History Tobacco Use Types Packs/Day Years [...] ? PURNIMA THACKER ? Accession #: ? [id number] ? : ? 1955 (Age: 61) ??F ?Collect Date: ? 12/23/2016 ? Location: ? [facility] ? Receive Date: ? 12/25/2016 ? Provider: DEBORAH QUIROGA [employer] Copy to: ? Final Report SPECIMEN ADEQUACY [...] types 16,18,31,33,35, 39,45,51,52,56,58, 59,66, and 68 by container finisher mediated amplification. Comments Document reviewed and electronically signed by: ? System Interface ? Report date: 01/07/2017 By the signature above, the attending physician certifies that he/she has personally conducted a gross and/or microscopic examination of the described specimens and rendered or confirmed the above diagnosis. End of Report [facility] 12/23/2016 12/25/2016 Deborah Quiroga NUCLEAR PHYSICS PROFESSOR PATHOLOGY ORDERABLES [facility] [address] [place] [address] documented in this encounter Visit Diagnoses Not on filedocumented in this encounter Care Teams Renal Medicine Specialist Relationship Specialty Start Date End Date Ashley Chavez ARNP [address] [place] [address] PCP - General 07/11/10 documented as of this encounter
--- OUTSIDE RECORDS SUMMARY | 2024-05-25 14:07 | XMS_ITS | Encounter Summary ---
Author Organization [facility] Address [address] [place] [address] Care Team Providers Care Sports Writer Name Role Phone Unavailable Primary Care Provider Unavailabl e Encounter Details Date Type Department Care Team (Late st Contact Info) Description 06/29/2007 Results Only [facility] [address] [place] [address] Sánchez Acevedo MD [address] [place] [id number] Social History Tobacco Use Types Packs/Day Years [...] ? PURNIMA THACKER ? Accession #: ? [id number] ? : ? 1955 (Age: 51) ??F [...] covered by a smooth white serosa. ??Three payable representative sections of the gallbladder are submitted in one cassette. ??(Sriram Elias/[facility] End of Report [facility] 06/29/2007 06/29/2007 21: 23 EST Sánchez Acevedo MD PATHOLOGY ORDERABLE [facility] [address] [place] [address] documented in this encounter Visit Diagnoses Not on filedocumented in this encounter
--- OUTSIDE RECORDS SUMMARY | 2024-05-25 14:07 | XMS_ITS | Encounter Summary ---
Author Organization [facility] Address [address] [place] [address] Care Team Providers Care Model Artists' Name Role Phone Ashley Chavez Primary Care Provider [phone] Encounter Details Date Type Department Care Team (Late st Contact Info) Description 06/23/2016 Results Only [facility] [phone] Matthew Acevedo, DO [address] [facility] [place] [address] [place] [address] Social History Tobacco Use Types Packs/Day [...] ? PURNIMA THACKER ? Accession #: ? [id number] : ? 1955 (Age: 60) ??F ?Collect [...] ?? KARYOTYPE: 46,XX[25] End of Report [facility] 06/23/2016 06/24/2016 Matthew Acevedo DO PATHOLOGY ORDER JODIE [facility] [address] [place] [address] * FLOW CYTOMETRY (06/23/2016 0:00 EST) Pathology Report: FLOW CYTOMETRY REPORT Reports generated via electronic interface contain original data; however they are lacking the format of the original report. Caution should be taken when reading/interpreting unformatted reports. Name: ? PURNIMA THACKER ? Accession #: ? [id number] : ? 1955 (Age: 60) ??F ?Collect Date: ? 06/23/2016 00:00 Location: ? [facility] ? Receive Date: ? 06/24/2016 08:00 Provider: ?MATTHEW ACEVEDO DO Copy to: ?[place] [employer]ANKINS MANAGER VEHICLE MARIO ALBERTO RAMOS MD ? FINAL IMMUNOPHENOTYPIC INTERPRETATION: ? Bone marrow, flow cytometric analysis: -No immunophenotypic evidence of a clonal cell population. ??See comment. ? COMMENT: The results of flow cytometry show no immunophenotypic evidence of involvement by a clonal lymphoproliferative or myeloproliferative disorder. ??Correlation of these findings with morphologic and clinical data is essential. ??Please refer to pathology report number [id number] for morphologic details. ? Document reviewed and [...] the Department of Pathology and Laboratory Medicine, [place], [place] ??It has not been cleared or [...] laboratory testing. End of Report ?? [facility] 06/23/2016 06/24/2016 8:0 0 EST Matthew Acevedo DO PATHOLOGY ORDER JODIE [facility] [address] [place] [address] * BONE MARROW/HEMPATH CONSULT (06/23/2016 0:00 EST) Pathology Report: BONE MARROW REPORT Reports generated via electronic interface contain original data; however they are lacking the format of the original report. Caution should be taken when reading/interpreting unformatted reports. Name: ? PURNIMA THACKER ? Accession #: ? [id number] : ? 1955 (Age: 60) ??F ?Collect Date: ? 06/23/2016 Location: ? [facility] ? Receive Date: ? 06/24/2016 Provider: ? MATTHEW ACEVEDO DO Copy to: ?[place] HANKINS MANAGER VEHICLE MARIO ALBERTO RAMOS MD ? DIAGNOSIS: Peripheral [...] #1: Aggregate biopsy length: 8 mm with headliner installer trabeculae of lamellar bone, cellular bone marrow, [...] SEE ABOVE DISCUSSION Lambda (polyclonal, Dako) ??(B1): [place] (polyclonal, Dako) ??(B1): Biopsy (decalcified) #2: Aggregate biopsy length: 8 mm with headliner installer trabeculae of lamellar bone, cellular bone marrow, [...] (M115, Leica) ??(B2): Lambda (polyclonal, Dako) ??(B2): [place] (polyclonal, Dako) ??(B2): NOTE: ??One or more [...] performance characteristics have been determined by [facility]. ??The positive and negative controls worked [...] ? 1% Blasts ?1% Special Studies Cytogenetics ([id number]): Pending. Flow Cytometry ([id number]): No immunophenotypic evidence of a clonal cell population. ? End of Report [facility] 06/23/2016 06/24/2016 Mtathew Acevedo DO PATHOLOGY ORDER JODIE [facility] [address] [place] [address] documented in this encounter Visit Diagnoses Not on filedocumented in this encounter Care Teams Model Artists' Relationship Specialty Start Date End Date Ashley Chavez ARNP [address] [place] [address] PCP - General 07/11/10 documented as of this encounter
--- OUTSIDE RECORDS SUMMARY | 2024-05-25 14:07 | XMS_ITS | Clinical Summary ---
Author Organization [facility] Address [facility] [place] [address] Care Team Providers Care Hadoop Analyst Name Role Phone Magdalena Acosta MD Primary Care Provider [phone] Allergies No known active allergies Medications Medication [...] 2 times daily as needed. 10/22/2022 Active spironolactone (Aldactone) 25 mg tabletIndications:H FrEF [...] Take 40 mg by mouth daily. Active hydrOXYchloroQUINE (Plaquenil) 200 mg tablet Take 1 tablet by mouth daily. 90 tablet 1 05/24/2024 Active Active Problems Problem Noted Date Diagnosed Date Cardiogenic shock 05/12/2023 S/P TAVR (transcatheter aortic valve replacement ) 05/12/[address] enosis with low ejection fraction 05/08/2023 Mild coronary artery disease by [facility] 11/09/2022 Heart failure with reduced [...] Encounters Date Type Department Care Team Description 05/24/2024 [place] [phone] Magdalena Peralta MD 05/18/2024 Interpretation Only [address] [address] Magdalena Acosta MD 05/18/2024 Interpretation Only [address] [address] Magdalena Acosta MD 05/12/2024 10:00 AM EDT Office Visit [place] [phone] Markel Borjas MD Chronic idiopathic neutropenia 05/12/2024 9:00 AM EDT Laboratory App[place]ment [place] [facility] [address] [place], [place] [id number] S/P TAVR (transcatheter aortic valve replacement); Chronic idiopathic neutropenia 05/12/2024 Travel 05/10/2024 Travel 04/11/2024 Transcribe Orders eDH Incoming Referrals [phone] Consuelo Guerrero, DO Anemia, unspecified type 03/01/2024 Telephone Cardiology at [address] [address] Cynthia Monsalve RN Pre Procedure Call (DAPT hold for EGD and colo?) from Last 3 Months Immunizations Name Administration [...] Care Team (Late st Contact Info) Description 06/01/2024 10:00 AM EDT [place] [phone] Magdalena Peralta MD [facility] [place] [address] 06/05/2024 2:00 PM EST Hospital Encounter Outpatient [place] [phone] Markel Borjas MD [facility] DR HEMATOLOGY [place] [address] 06/05/2024 2:00 PM EST - 06/05/2024 3:00 PM EST Surgery Outpatient [place] [phone] Markel Borjas MD [facility] HEMATOLOGY [place] [address] (OSC MSURG) BONE MARROW BIOPSY AND ASPIRATION; DIAGNOSTIC (WRVU 1.44) 06/23/2024 2:00 PM EST Office Visit [place] [address] Markel Borjas MD [facility] HEMATOLOGY [place] [address] 03/01/2025 4:15 PM EDT Office Visit Dermatology at [address] [phone] Marek Bonilla MD [address], [place] [address] Scheduled Procedures Name Priority Associated Diagnoses Date/Ti [...] 05/18/2024, 06/05/2021 Medical Devices Implanted Type Area Jigger Crown Pouncing Machine Operator Device Identifier Shelf Expiration Date Model / Serial / Lot Valve,Aor,Pericar d,Magna,25mm ([id number]) - [id number] Implanted:Qty: 1 on 09/21/2016 by Alirio Esparza MD at [facility] IMPLANTS N/A: Heart DO NOT USE [employer] - [id number] 06/02/2020 [id number] / / [id number] Cable,Blnt,Ss,38i n ([id number]) - [id number] Implanted:Qty: 4 on 09/21/2016 by Alirio Esparza MD at [facility] IMPLANTS N/A: Chest [employer] - [id number] 04/29/2021 [id number] / / [id number] Patch,Cav,Pericar d,2x5cm ([id number]) (Autoreq) - [id number] Implanted:Qty: 1 on 09/21/2016 by Alirio Esparza MD at [facility] IMPLANTS N/A: Heart DO NOT USE [employer] - [id number] 04/21/2018 [id number] / / [id number] Tavr-05/12/2023 Implanted:Qty: 1 on 05/12/2023 by Antelmo Sharma MD Other Heart JAIME [employer] - JAIME LI [id number] / [id number] / Description:JAIME LIFESCIE NCES ABBY 3 ULTRA [...] AM EDT) PT CLASS O RAD ADMITDTTM [id number] RAD PT RAD INFO [id number]^Dave ^Magdalena DH RAD EXAM DESC XDXAC^BD Bone Density DEXA Axial Skeleton^RIS [facility] WORKSTATION ID RADDRIMAGE [facility] Anatomical Region Laterality Modality C-spine, Hip [...] who have questions please contact the health inpatient care manager rn that requested your imaging [...] patients who have questions please contactthe health inpatient care manager rn that requested your imaging first. Magdalena Acosta MD IMG DEXA ORDERABLES * MAMMO SCREENING CAD BILATERAL (CH) (05/18/2024 11:21 AM EDT) PT CLASS O RAD ADMITDTTM [id number] RAD PT RAD INFO [id number]^Dave ^Magdalena RAD EXAM DESC MADDSCCH^MG Mammo Digital [...] who have questions please contact the health inpatient care manager rn that requested your imaging first. ? [address] ??[address] Narrative 05/18/2024 3:05 PM EDT EXAMINATION: MG [...] patients who have questions please contactthe health inpatient care manager rn that requested your imaging first. [address] [address] Magdalena Acosta MD PACS IMAGES * Reticulocyte Count (05/12/2024 8:56 AM EDT) Reticulocyte % 1.20 0.70 - 2.50 % 05/12/2024 9:32 AM EDT [facility] Retic Abs # 0.0397 0.0200 - 0.1100 x10(6)/mcL 05/12/2024 9:32 AM EDT [facility] Immature Retic% 8.1 0.5 - 13.8 % 05/12/2024 9:32 AM EDT [facility] Reticulated Hgb 35.2 29.8 - 39.4 pg 05/12/2024 9:32 AM EDT [facility] Blood VENOUS BLOOD SPECIMEN / Unknown Venipuncture / Unknown 05/12/2024 8:56 AM EDT 05/12/2024 8:56 AM EDT Tova Russell BASEBALL INSPECTOR AND REPAIRER HEMATOLOGY ORDERABL ES [facility] [place] [address] * (ABNORMAL) CBC (with Diff) (05/12/2024 8:56 [...] 6.10 x10(3)/mc L 05/12/2024 9:32 AM EDT [facility] Lymph % 16.7 % 05/12/2024 9:32 AM EDT [facility] Lymph Absolute 0.58(L) 0.90 - 3.20 x10(3)/mc L 05/12/2024 9:32 AM EDT [facility] Monocyte % 12.1 % 05/12/2024 9:32 AM EDT [facility] Monocyte Absolute 0.42 0.30 - 0.90 x10(3)/mc L 05/12/2024 9:32 AM EDT [facility] Eos % 0.6 % 05/12/2024 9:32 AM EDT [facility] Eos Absolute <0.04 0.00 - 0.40 x10(3)/mc L 05/12/2024 9:32 AM EDT [facility] Basophil % 0.6 % 05/12/2024 9:32 AM EDT [facility] Baso Absolute <0.04 0.00 - 0.10 x10(3)/mc L 05/12/2024 9:32 AM EDT [facility] Immature Gran % 0.3 % 9:32 AM EDT [facility] Immature Gran Absolute <0.04 0.00 - 0.04 x10(3)/mc L 05/12/2024 9:32 AM EDT [facility] Blood VENOUS BLOOD SPECIMEN / Unknown Venipuncture / Unknown 05/12/2024 8:56 AM EDT 05/12/2024 8:56 AM EDT Tova Russell BASEBALL INSPECTOR AND REPAIRER HEMATOLOGY ORDERABL ES [facility] [place] [address] * (ABNORMAL) Comprehensive metabolic panel Non-fasting (05/12/2024 8:56 AM EDT) Pathologist [facility] Glucose 86 65 - 199 mg/dL 05/12/2024 [...] mL/min/1. 73 m?? 05/12/2024 11:36 AM EDT [facility] Comment: This [...] Fasting Status No 05/12/2024 11:36 AM EDT [facility] Blood VENOUS BLOOD SPECIMEN / Unknown Venipuncture / Unknown 05/12/2024 8:56 AM EDT 05/12/2024 8:56 AM EDT Tova Russell BASEBALL INSPECTOR AND REPAIRER CHEMISTRY ORDERABLE S [facility] [place] [address] * Scan Doc: Lab (02/24/2024 12:00 AM [...] capacity to make decision: Yes Care Teams Hadoop Analyst Relationship Specialty Start Date End Date Magdalena Acosta MD [address] [place] [address] PCP - General Family Medicine 02/05/23
--- OUTSIDE RECORDS SUMMARY | 2024-05-25 14:07 | XMS_ITS | Encounter Summary ---
Author Organization [facility] Address [address] [place] [address] Care Team Providers Care Brusher Name Role Phone Ashley Chavez Primary Care Provider [phone] Encounter Details Date Type Department Care Team (Late st Contact Info) Description 05/12/2022 Lab Requisition [facility] Pathology & Laboratory Medicine - [address] [phone] Outr Resulting Lab, Provider Social History Tobacco [...] SUPPORT & PHONE RESULT Performing Organization Address [facility]/ZIP Co de Phone Number [facility] [address] [place] [address] * (ABNORMAL) HOMOCYSTEINE (05/12/2022 14:32 EDT) Homocysteine [...] GAS ORDERABLES Performing Organization Address [facility] Co de Phone Number [facility] [address] [place] [address] * HAPTOGLOBIN (05/12/2022 14:32 EDT) Pathologist [facility] Haptoglobin 138 32 - 197 mg/dL 05/13/2022 9:55 EDT [facility] Blood VENOUS BLOOD / Unknown 05/12/2022 14:32 EDT 05/12/2022 21:36 EDT Provider Outr Resulting Lab CHEMISTRY & BLOOD GAS ORDERABLES Performing Organization Address [facility] Co de Phone Number [facility] [address] [place] [address] * (ABNORMAL) ANTI NUCLEAR AB (FRANCISCO), IFA [...] ORDERABLES [facility] [address] [place] [address] documented in this encounter Visit Diagnoses Not on filedocumented in this encounter Care Teams Brusher Relationship Specialty Start Date End Date Ashley Chavez ARNP [address] [place] [address] PCP - General 07/11/10 documented as of this encounter
[2024-05-25 14:08] VITALS: BP 128/65; PULSE 73; O2SAT 97
--- OUTSIDE RECORDS SUMMARY | 2024-05-25 14:08 | XMS_ITS | Encounter Summary ---
[place] [address] Care Team Providers Care Farm Butcher Name Role Phone Magdalena Acosta MD Primary Care Provider [phone] Encounter Details Date Type Department Care Team [...] 10:00 AM EDT Office [place] [phone] Magdalena Peralta MD [facility] [place] [address] 06/05/2024 2:00 PM EST Hospital Encounter [place] [phone] Markel Borjas MD [facility] DR [place]EMATOLOGY [place] [address] 06/05/2024 2:00 PM EST - 06/05/2024 3:00 PM EST Surgery [place] [address] Markel Borjas MD [facility] DR [place]ATOLOGY [place] [address] (OSC MSURG) BONE MARROW BIOPSY AND ASPIRATION; DIAGNOSTIC (WRVU 1.44) 06/23/2024 2:00 PM EST Office Visit Hematology [place] [phone] Markel Borjas MD [facility] DR [place] [address] 03/01/2025 4:15 PM EDT Office Visit Dermatology at [place] [address] [place] [phone] Marek Bonilla MD [address], [place] [address] Scheduled Procedures Name Priority Associated Diagnoses Date/Ti me (OSC MSURG) BONE MARROW BIOPSY AND ASPIRATION; DIAGNOSTIC (WRVU 1.44) Anemia, in pt with longstanding neutropenia 06/05/2024 2:00 PM EST documented as of this encounter Visit Diagnoses Not on filedocumented in this encounter Care Teams Farm Butcher Relationship Specialty Start Date End Date Magdalena Acosta MD [address] [place] [address] PCP - General Family Medicine 02/05/23 documented as of this encounter
--- OUTSIDE RECORDS SUMMARY | 2024-05-25 14:08 | XMS_ITS | Encounter Summary ---
Author Organization [facility] Address [facility] [place] [address] Care Team Providers Care Medical Office Technology Instructor Name Role Phone Magdalena Acosta MD Primary Care Provider [phone] Encounter Details Date Type Department Care Team (Latest Contact Info) Description 07/08/2023 12:35 PM EST Laboratory Appointment Lab [address] [place] [address] S/P TAVR (transcatheter aortic valve [...] 10:00 AM EDT Office [place] [address] Magdalena Peralta MD [facility] [place] [address] 06/05/2024 2:00 PM EST Hospital Encounter [place] [phone] Markel Borjas MD [facility] DR [place] [address] 06/05/2024 2:00 PM EST - 06/05/2024 3:00 PM EST Surgery [place] [phone] Markel Borjas MD [facility] DR [place] [address] (OSC MSURG) BONE MARROW BIOPSY AND ASPIRATION; DIAGNOSTIC (WRVU 1.44) 06/23/2024 2:00 PM EST Office Visit Hematology [place] [phone] Markel Borjas MD [facility] DR [place] [address] 03/01/2025 4:15 PM EDT Office Visit Dermatology at [address] [place] [phone] Marek Bonilla MD [address], [place] [address] DERMATOLOGY [place], [place] [phone] Scheduled Procedures Name Priority Associated Diagnoses Date/Ti [...] 11:56 AM EST) Neutrophil % 73.2 % [facility] Neutrophil Absolute 3.40 1.70 - 6.10 x10(3)/mc L [facility] Lymph % 16.1 % [facility] Lymphocytes Abs 0.8(L) 0.9 - 3.2 x10(3)/mc L [facility] Monocyte % 9.7 % [facility] Monocyte Abs 0.4 0.3 - 0.9 x10(3)/mc L [facility] Eos % 0.4 % [facility] Eosinophils Abs 0.0 0.0 - 0.4 x10(3)/mc L [facility] Basophil % 0.4 % [facility] Baso Absolute 0.0 0.0 - 0.1 x10(3)/mc L [facility] Immature Gran % 0.20 % [facility] Comment: Immature granulocytes(IG's)percentage and absolute count will include metamyelocytes, myelocytes, and promyelocytes. Blood smears from CBCs yielding IG's will be scanned manually for concordance. If this scan disagrees with the automated IG or if promyelocytes are noted, a manual differential will be performed. Immature Gran Absolute 0.01 0.00 - 0.04 x10(3)/mc L [facility] Blood 07/08/2023 11:5 6 AM EST 07/08/2023 12:02 PM EST Narrative Resulting Agency Comment Spec In Lab Minh TOBAR HEMATOLOGY ORDERABLE S [facility] [place] [address] * (ABNORMAL) Hemogram (07/08/2023 11:56 AM EST) White Blood Cell 4.6 4.0 - 9.5 x10(3)/mc L [facility] Red Blood Cell 3.34(L) 4.00 - 5.21 x10(6)/mc L [facility] Hemoglobin 11.0(L) 11.7 - 15.5 g/dL [facility] Hematocrit 33.2(L) 35.7 - 45.8 % [facility] Mean Cell Volume 99.4(H) 82.6 - 94.4 fL [facility] Mean Cell Hemoglobin 32.9(H) 27.1 - 32.0 pg [facility] Mean Cell Hemoglobin Concentration 33.1 31.7 - 35.0 g/dL [facility] Platelet 166 145 - 357 x10(3)/mc L [facility] RDW Standard Deviation 47.1(H) 37.0 - 46.0 fL [facility] RDW coefficient of variation 13.0 11.5 - 14.1 % [facility] Mean Platelet Volume 9.0 7.6 - 12.9 fL [facility] NRBC% auto 0.0 % [facility] NRBC Absolute 0.000 0.000 - 0.000 x10(3)/ L [facility] Blood 07/08/2023 11:5 6 AM EST 07/08/2023 12:02 PM EST Narrative Resulting Agency Comment Spec In Lab Minh TOBAR HEMATOLOGY ORDERABLE S Performing Organization Address City/State/[facility] Co de Phone Number [facility] [place] [address] * (ABNORMAL) Comprehensive metabolic panel (non-fasting) (07/08/2023 11:56 AM EST) Glucose 93 65 - 199 mg/dL [facility] Comment:Diabetes: >=200 mg/d L plus symptoms Blood Urea Nitrogen 19(H) 8 - 18 mg/dL [facility] Creatinine 0.81 0.70 - 1.20 mg/dL [facility] Sodium 142 135 - 145 mmol/L [facility] Potassium 3.8 3.5 - 5.0 mmol/L [facility] Comment: Please note: ??Patients with WBC >100,000 may have falsely elevated Potassium levels. ??For accurate Potassium quantification in these patients send serum separator tube (gold top) for subsequent determinations. ??Contact the Clinical Chemistry Laboratory if there are any questions. Chloride 104 98 - 107 mmol/L [facility] Carbon Dioxide 26 22 - 31 mmol/L [facility] Anion Gap 12 5 - 15 mmol/L [facility] Calcium 10.2 8.5 - 10.5 mg/dL [facility] Protein, Total 7.4 6.1 - 8.0 g/dL [facility] Albumin 4.1 3.2 - 5.2 g/dL [facility] Aspartate Aminotransferase 24 0 - 30 unit/L [facility] Alanine Aminotransferase 12 0 - 30 unit/L [facility] Alkaline Phosphatase 93 35 - 105 unit/L [facility] Bilirubin, Total 0.3 0.2 - 1.3 mg/dL [facility] Est Glomerular Filtration Rate 80 >=60 mL/min/1. 73 m?? [facility] [...] Lab Alirio Esparza MD CHEMISTRY ORDERABLE S [facility] [place] [address] documented in this encounter Visit Diagnoses Diagnosis S/P TAVR (transcatheter aortic valve replacement) Severe aortic stenosis Aortic valve disorders documented in this encounter Care Teams Medical Office Technology Instructor Relationship Specialty Start Date End Date Magdalena Acosta MD [address] [place] [address] PCP - General Family Medicine 02/05/23 documented as of this encounter
--- OUTSIDE RECORDS SUMMARY | 2024-05-25 14:08 | XMS_ITS | Encounter Summary ---
[place] [address] Care Team Providers Care Producer Assistant Name Role Phone Magdalena Acosta MD Primary Care Provider [phone] Encounter Details Date Type Department Care Team (Late st Contact Info) Description 05/18/2024 Interpretation Only [address] [phone] aMgdalena Acosta MD [address] [place], [place] [phone] Social History Tobacco Use Types Packs/Day Years [...] 10:00 AM EDT Office [place] [address] Magdalena Peralta MD [facility] [place] [address] 06/05/2024 2:00 PM EST Hospital Encounter [facility] [place] [phone] Markel Borjas MD [facility] DR [place] [address] 06/05/2024 2:00 PM EST - 06/05/2024 3:00 PM EST Surgery [place] [phone] Markel Borjas MD [facility] [address] [place] [address] (OSC MSURG) BONE MARROW BIOPSY AND ASPIRATION; DIAGNOSTIC (WRVU 1.44) 06/23/2024 2:00 PM EST Office Visit Hematology [place] [phone] Markel Borjas MD [facility] [address] [place] [address] 03/01/2025 4:15 PM EDT Office Visit Dermatology at [address] [place] [address] Marek Bonilla MD [address], [place] [address] Scheduled Procedures Name Priority Associated Diagnoses Date/Ti [...] AM EDT) PT CLASS O RAD ADMITDTTM [id number] RAD PT RAD INFO [id number]^Dave ^Magdalena RAD EXAM DESC MADDSCCH^MG Mammo Digital [...] have questions please contact the health healthcare risk control consultant that requested your imaging first. ? [address] ??[address] Narrative 05/18/2024 3:05 PM EDT EXAMINATION: MG [...] who have questions please contactthe health healthcare risk control consultant that requested your imaging first. Electronically signed by: Rocael Villatoro MD, [facility]([phone]), at 05/18/2024 3:05 [place] [address] Magdalena Acosta MD PACS IMAGES documented in this encounter Visit Diagnoses Not on filedocumented in this encounter Care Teams Producer Assistant Relationship Specialty Start Date End Date Magdalena Acosta MD [address] [place] [address] PCP - General Family Medicine 02/05/23 documented as of this encounter
--- OUTSIDE RECORDS SUMMARY | 2024-05-25 14:08 | XMS_ITS | Encounter Summary ---
Author Organization [facility] [place] [address] Care Team Providers Care Supervisor Graphite Name Role Phone Magdalena Acosta MD Primary Care Provider [phone] Reason for Visit * Reason Onset Date Comments Medication Refill 05/24/2024 Encounter Details Date Type Department Care Team (Late st Contact Info) Description 05/24/2024 Refill [place] [address] Magdalena Peralta MD [facility] [place] [address] Social History Tobacco Use Types Packs/Day Years [...] encounter Miscellaneous Notes * Telephone Encounter - Vega Mcknight - 05/24/2024 9:05 AM EDT MEDICATION REFILL hydrOXYchloroQUINE (Plaquenil) 200 mg tablet [facility] - [facility], [place] - [address] [facility] [place] [address] documented in this encounter Plan of Treatment Upcoming Encounters Date Type Department Care Team (Late st Contact Info) Description 06/01/2024 10:00 AM EDT Office [place] [phone] Magdalena Peralta MD [facility] [place] [address] 06/05/2024 2:00 PM EST Hospital Encounter Outpatient [place] [address] Markel Borjas MD [facility] DR [place] [address] 06/05/2024 2:00 PM EST - 06/05/2024 3:00 PM EST Surgery Outpatient [place] [phone] Markel Borjas MD [facility] DR [place] [address] (OSC MSURG) BONE MARROW BIOPSY AND ASPIRATION; DIAGNOSTIC (WRVU 1.44) 06/23/2024 2:00 PM EST Office Visit Hematology [place] [address] Markel Borjas MD [facility] [place] [address] 03/01/2025 4:15 PM EDT Office Visit Dermatology at [address] [place] [phone] Marek Bonilla MD [address], [place] [address] Scheduled Procedures Name Priority Associated Diagnoses Date/Ti me (OSC MSURG) BONE MARROW BIOPSY AND ASPIRATION; DIAGNOSTIC (WRVU 1.44) Anemia, in pt with longstanding neutropenia 06/05/2024 2:00 PM EST documented as of this encounter Visit Diagnoses Not on filedocumented in this encounter Care Teams Supervisor Graphite Relationship Specialty Start Date End Date Magdalena Acosta MD [address] [place] [address] PCP - General Family Medicine 02/05/23 documented as of this encounter
--- OUTSIDE RECORDS SUMMARY | 2024-05-25 14:08 | XMS_ITS | Encounter Summary ---
Author Organization [facility] [place] [address] Care Team Providers Care Photo Retoucher Name Role Phone Magdalena Acosta MD Primary Care Provider [phone] Encounter Details Date Type Department Care Team (Late st Contact Info) Description 07/08/2023 10:15 AM EST Office Visit Cardiology at [address] [phone] Severe aortic stenosis Social History Tobacco Use [...] 10:00 AM EDT Office [place] [address] Magdalena Peralta MD [facility] [place] [address] 06/05/2024 2:00 PM EST Hospital Encounter [place] [phone] Markel Borjas MD [facility] DR [place] [address] 06/05/2024 2:00 PM EST - 06/05/2024 3:00 PM EST Surgery [place] [phone] Markel Borjas MD [facility] DR [place] [address] (OSC MSURG) BONE MARROW BIOPSY AND ASPIRATION; DIAGNOSTIC (WRVU 1.44) 06/23/2024 2:00 PM EST Office Visit [place]ematology [place] [phone] Markel Borjas MD [facility] DR [place] [address] 03/01/2025 4:15 PM EDT Office Visit Dermatology at [place] [address] [facility] [place] [phone] Marek Bonilla MD [address], [place] [address] Scheduled Procedures Name Priority Associated Diagnoses Date/Ti [...] (Bezet) 449 ms MUSE SYSTEM Calculated P [place] 66 degrees MUSE SYSTEM Calculated R [place] 60 degrees MUSE SYSTEM Calculated T [place] 53 degrees MUSE SYSTEM INTERPRETATION Normal sinus rhythm Minimal voltage criteria for LVH, may be normal variant ( Sokolow-Orozco ) ST & T wave abnormality, consider lateral ischemia ??vs. repolarization abnormality from LVH Abnormal ECG When compared with ECG of 13-MAY-2023 09:22, Premature ventricular complexes are no longer Present Minimal criteria for Septal infarct are no longer Present Confirmed by Maxx Best ([id number]) on 07/09/2023 10:07:22 AM MUSE SYSTEM 07/08/2023 10:2 7 AM EST 07/09/2023 10:07 AM EST Brody Suyapa Eusebio OSBORN ECG ORDERABLES MUSE SYSTEM documented in this encounter Visit Diagnoses Diagnosis Severe aortic stenosis Aortic valve disorders documented in this encounter Care Teams Photo Retoucher Relationship Specialty Start Date End Date Magdalena Acosta MD [address] [place] [address] PCP - General Family Medicine 02/05/23 documented as of this encounter
--- OUTSIDE RECORDS SUMMARY | 2024-05-25 14:08 | XMS_ITS | Encounter Summary ---
Author Organization [facility] Address [facility] [place] [address] Care Team Providers Care Cmm Inspector Name Role Phone Magdalena Acosta MD Primary Care Provider [phone] Encounter Details Date Type Department Care Team (Latest Contact Info) Description 05/12/2024 9:00 AM EDT Laboratory Appointment Lab at [facility] Hematology Oncology [address] [place] [address] S/P TAVR (transcatheter aortic valve replacement); Chronic idiopathic neutropenia Social History Tobacco Use Types Packs/Day Years Used Date Smoking Tobacco: Never Smokeless Tobacco: Never Alcohol Use Standard Drinks/Week Comments No 0 (1 standard drink = 0.6 oz pur e alcohol) none [facility] Inpatient Questions Answer Date Recorded Does [...] 10:00 AM EDT Office [place] [address] Magdalena Peralta MD [facility] [place] [address] 06/05/2024 2:00 PM EST Hospital Encounter [place]patient [place] [phone] Markel Borjas MD [facility] DR HEM[place]OLOGY [place] [address] 06/05/2024 2:00 PM EST - 06/05/2024 3:00 PM EST Surgery [place] [phone] Markel Borjas MD [facility] DR [place]EM[place] [address] (OSC MSURG) BONE MARROW BIOPSY AND ASPIRATION; DIAGNOSTIC (WRVU 1.44) 06/23/2024 2:00 PM EST Office Visit [place]ology [place] [phone] Markel Borjas MD [facility] [place]EMATOLOGY [place] [address] 03/01/2025 4:15 PM EDT Office Visit Dermatology at [address] [facility] [phone] Marek Bonilla MD [address], [place] [address] Scheduled Procedures Name Priority Associated Diagnoses Date/Ti [...] Reticulocyte Count (05/12/2024 8:56 AM EDT) Pathologist [facility] Reticulocyte % 1.20 0.70 - 2.50 % 05/12/2024 9:32 AM EDT [facility] Retic Abs # 0.0397 0.0200 - 0.1100 x10(6)/mcL 05/12/2024 9:32 AM EDT [facility] Immature Retic% 8.1 0.5 - 13.8 % 05/12/2024 9:32 AM EDT [facility] Reticulated Hgb 35.2 29.8 - 39.4 pg 05/12/2024 9:32 AM EDT [facility] Blood VENOUS BLOOD SPECIMEN / Unknown Venipuncture / Unknown 05/12/2024 8:56 AM EDT 05/12/2024 8:56 AM EDT Tova Russell TOWER ERECTOR HELPER HEMATOLOGY ORDERABL ES [facility] [place] [address] * (ABNORMAL) Comprehensive metabolic panel Non-fasting (05/12/2024 8:56 AM EDT) Pathologist [facility] Glucose 86 65 - 199 mg/dL 05/12/2024 11:36 AM EDT [facility] Comment:Glucose Concentratio n >=200 mg/dL plus symptoms is consistent with Diabetes Mellitus. Blood Urea Nitrogen 20(H) 8 - 18 mg/dL 05/12/2024 11:36 AM EDT [facility] Creatinine 0.88 0.70 - 1.20 mg/dL 05/12/2024 11:36 AM EDT [facility] Sodium 145 135 - 145 mMol/L 05/12/2024 11:36 AM EDT [facility] Potassium 4.6 3.5 - 5.0 mMol/L 05/12/2024 11:36 AM [facility] Chloride 109(H) 98 - 107 mMol/L 05/12/2024 11:36 AM [facility] Carbon Dioxide 21(L) 22 - 31 mMol/L 05/12/2024 11:36 AM [facility] Anion Gap 15 5 - 15 mMol/L 05/12/2024 11:36 AM [facility] Comment:Not Calculated. Calcium 9.9 8.5 - 10.5 mg/dL 05/12/2024 11:36 AM [facility] Protein, Total 7.3 6.1 - 8.0 g/dL 05/12/2024 11:36 AM [facility] Albumin 4.5 3.2 - 5.2 g/dL 05/12/2024 11:36 AM [facility] Aspartate Aminotransferase 24 <=30 unit/L 05/12/2024 11:36 AM [facility] Alanine Aminotransferase 14 0 - 30 unit/L 05/12/2024 11:36 AM [facility] Alkaline Phosphatase 98 35 - 105 unit/L 05/12/2024 11:36 AM [facility] Bilirubin, Total 0.2 <=1.3 mg/dL 05/12/2024 11:36 AM [facility] Est Glomerular Filtration Rate - Female 72 mL/min/1. 73 m?? 05/12/2024 11:36 AM [facility] Comment: This [...] Fasting Status No 05/12/2024 11:36 AM EDT [facility] Blood VENOUS BLOOD SPECIMEN / Unknown Venipuncture / Unknown 05/12/2024 8:56 AM EDT 05/12/2024 8:56 AM EDT Tova Mejias Drew TOWER ERECTOR HELPER CHEMISTRY ORDERABLE S [facility] [place] [address] * (ABNORMAL) CBC (with Diff) (05/12/2024 8:56 AM EDT) White Blood Cell 3.47(L) 4.00 - 9.50 x10(3)/mc L 05/12/2024 9:32 AM EDT [facility] Red Blood Cell 3.31(L) 4.00 - 5.21 x10(6)/mc L 05/12/2024 9:32 AM EDT [facility] Hemoglobin 11.1(L) 11.7 - 15.5 g/dL 05/12/2024 9:32 AM EDT [facility] Hematocrit 33.2(L) 35.7 - 45.8 % 05/12/2024 9:32 AM EDT [facility] Mean Cell Volume 100.3(H) 82.6 - 94.4 fL 05/12/2024 9:32 AM EDT [facility] Mean Cell Hemoglobin 33.5(H) 27.1 - 32.0 pg 05/12/2024 9:32 AM EDT [facility] Mean Cell Hemoglobin Concentration 33.4 31.7 - 35.0 g/dL 05/12/2024 9:32 AM EDT [facility] Platelet 142(L) 145 - 357 x10(3)/mc L 05/12/2024 9:32 AM EDT [facility] Mean Platelet Volume 8.7 7.6 - 12.9 fL 05/12/2024 9:32 AM [facility] RDW Standard Deviation 44.4 37.0 - 46.0 fL 05/12/2024 9:32 AM [facility] RDW coefficient of variation 12.0 11.5 - 14.1 % 05/12/2024 9:32 AM [facility] NRBC% auto 0.0 % 05/12/2024 9:32 AM [facility] NRBC Absolute <0.01 <0.01 x10(3)/mc L 05/12/2024 9:32 AM [facility] Neutrophil % 69.7 % 05/12/2024 9:32 AM [facility] Neutrophil Absolute (ANC) - Automated 2.42 1.70 - 6.10 x10(3)/mc L 05/12/2024 9:32 AM [facility] Lymph % 16.7 % 05/12/2024 9:32 AM [facility] Lymph Absolute 0.58(L) 0.90 - 3.20 x10(3)/mc L 05/12/2024 9:32 AM [facility] Monocyte % 12.1 % 05/12/2024 9:32 AM [facility] Monocyte Absolute 0.42 0.30 - 0.90 x10(3)/mc L 05/12/2024 9:32 AM [facility] Eos % 0.6 % 05/12/2024 9:32 AM [facility] Eos Absolute <0.04 0.00 - 0.40 x10(3)/mc L 05/12/2024 9:32 AM [facility] Basophil % 0.6 % 05/12/2024 9:32 AM [facility] Baso Absolute <0.04 0.00 - 0.10 x10(3)/mc L 05/12/2024 9:32 AM [facility] Immature Gran % 0.3 % 9:32 AM EDT [facility] Immature Gran Absolute <0.04 0.00 - 0.04 x10(3)/mc L 05/12/2024 9:32 AM EDT [facility] Blood VENOUS BLOOD SPECIMEN / Unknown Venipuncture / Unknown 05/12/2024 8:56 AM EDT 05/12/2024 8:56 AM EDT Tova Russell TOWER ERECTOR HELPER HEMATOLOGY ORDERABL ES [facility] [place] [address] documented in this encounter Visit Diagnoses Diagnosis S/P TAVR (transcatheter aortic valve replacement) Chronic idiopathic neutropenia Other neutropenia documented in this encounter Care Teams Cmm Inspector Relationship Specialty Start Date End Date Magdalena Acosta MD [address] [place] [address] PCP - General Family Medicine 02/05/23 documented as of this encounter
--- OUTSIDE RECORDS SUMMARY | 2024-05-25 14:08 | XMS_ITS | Encounter Summary ---
[place] [address] Care Team Providers Care Rail Express Clerk Name Role Phone Magdalena Acosta MD Primary Care Provider [phone] Reason for Visit * Reason Comments Annual Exam Encounter Details Date Type Department Care Team (Late st Contact Info) Description 02/22/2024 4:15 PM EDT Office Visit Dermatology at [address] [phone] Marek Bonilla MD [address] [facility] A DERMATOLOGY [place], [place] [phone] Seborrheic keratosis; Rosacea; Nevus Social History Tobacco [...] cutaneous and ocular 3. Previously told by electric melt operator that she had corneal tears from [...] 10:00 AM EDT Office [place] [address] Magdalena Peralta MD [facility] [place] [address] 06/05/2024 2:00 PM EST Hospital Encounter [place]patient [place] [address] Markel Borjas MD [facility] [place] [address] 06/05/2024 2:00 PM EST - 06/05/2024 3:00 PM EST Surgery [place]patient [place] [phone] Markel Borjas MD [facility] [address] [place] [address] (OSC MSURG) BONE MARROW BIOPSY AND ASPIRATION; DIAGNOSTIC (WRVU 1.44) 06/23/2024 2:00 PM EST Office Visit Hematology [place] [address] Markel Borjas MD [facility] [place] [address] 03/01/2025 4:15 PM EDT Office Visit Dermatology at [place] [address] [place] [address] Marek Bonilla MD [address], [place] [address] Scheduled Procedures Name Priority Associated Diagnoses Date/Ti me (OSC MSURG) BONE MARROW BIOPSY AND ASPIRATION; DIAGNOSTIC (WRVU 1.44) Anemia, in pt with longstanding neutropenia 06/05/2024 2:00 PM EST documented as of this encounter Visit Diagnoses Diagnosis Seborrheic keratosis Other seborrheic keratosis Rosacea Nevus Benign neoplasm of skin, site unspecified documented in this encounter Care Teams Rail Express Clerk Relationship Specialty Start Date End Date Magdalena Acosta MD [address] [place] [address] PCP - General Family Medicine 02/05/23 documented as of this encounter
--- OUTSIDE RECORDS SUMMARY | 2024-05-25 14:08 | XMS_ITS | Encounter Summary ---
[place] [address] Care Team Providers Care Brine Room Laborer Name Role Phone Magdalena Acosta MD Primary Care Provider [phone] Encounter Details Date Type Department Care Team [...] AM EDT Office [place] [phone] Magdalena Peralta MD [facility] [place] [address] 06/05/2024 2:00 PM EST Hospital Encounter [place]patient [place] [phone] Markel Borjas MD [facility] [address] [place] [address] 06/05/2024 2:00 PM EST - 06/05/2024 3:00 PM EST Surgery [place] [address] aMrkel Borjas MD [facility] [address] [place] [address] (OSC MSURG) BONE MARROW BIOPSY AND ASPIRATION; DIAGNOSTIC (WRVU 1.44) 06/23/2024 2:00 PM EST Office Visit Hematology [place] [phone] Markel Borjas MD [facility] [address] [place] [address] 03/01/2025 4:15 PM EDT Office Visit Dermatology at [place] [address] [place] [phone] Marek Bonilla MD [address], [place] [address] Scheduled Procedures Name Priority Associated Diagnoses Date/Ti me (OSC MSURG) BONE MARROW BIOPSY AND ASPIRATION; DIAGNOSTIC (WRVU 1.44) Anemia, in pt with longstanding neutropenia 06/05/2024 2:00 PM EST documented as of this encounter Visit Diagnoses Not on filedocumented in this encounter Care Teams Brine Room Laborer Relationship Specialty Start Date End Date Magdalena Acosta MD [address] [place] [address] PCP - General Family Medicine 02/05/23 documented as of this encounter
--- OUTSIDE RECORDS SUMMARY | 2024-05-25 14:08 | XMS_ITS | Encounter Summary ---
Author [place] [address] Care Team Providers Care Director Of Premium Seat Sales Name Role Phone Magdalena Acosta MD Primary Care Provider [phone] Encounter Details Date Type Department Care Team [...] 10:00 AM EDT Office [place] [phone] Magdalena Peralta MD [facility] [place] [address] 06/05/2024 2:00 PM EST Hospital Encounter Outpatient [place] [phone] Markel Borjas MD [facility] DR HEMATOLOGY [place] [address] 06/05/2024 2:00 PM EST - 06/05/2024 3:00 PM EST Surgery Outpatient [place] [address] Markel Borjas MD [facility] DR HEMATOLOGY [place] [address] (OSC MSURG) BONE MARROW BIOPSY AND ASPIRATION; DIAGNOSTIC (WRVU 1.44) 06/23/2024 2:00 PM EST Office Visit Hematology [place] [phone] Markel Borjas MD [facility] DR HEMATOLOGY [place] [address] 03/01/2025 4:15 PM EDT Office Visit Dermatology at [place] [address] [place] [phone] Marek Bonilla MD [address], [place] [address] Scheduled Procedures Name Priority Associated Diagnoses Date/Ti me (OSC MSURG) BONE MARROW BIOPSY AND ASPIRATION; DIAGNOSTIC (WRVU 1.44) Anemia, in pt with longstanding neutropenia 06/05/2024 2:00 PM EST documented as of this encounter Visit Diagnoses Not on filedocumented in this encounter Care Teams Director Of Premium Seat Sales Relationship Specialty Start Date End Date Magdalena Acosta MD [address] [place] [address] PCP - General Family Medicine 02/05/23 documented as of this encounter
--- OUTSIDE RECORDS SUMMARY | 2024-05-25 14:08 | XMS_ITS | Encounter Summary ---
Author Organization [facility] [place] [address] Care Team Providers Care Energy Efficiency Engineer Name Role Phone Magdalena Acosta MD Primary Care Provider [phone] Reason for Visit * Reason Comments Coronary Artery Disease Hypertension Aortic Stenosis Encounter Details Date Type Department Care Team (Latest Contact Info) Description 07/20/2023 4:40 PM EST TH Visit (TeleHealth) Cardiology at [address] [address] Jay Maza PA [facility] [place] [address] HFrEF (heart failure with reduced ejection fraction); [...] Maza PA - 07/20/2023 4:40 PM EST [facility] Interventional [...] lieu of an in person office visit. Barrel Dedenting Machine Operator: Antelmo Sharma MD ([facility] Cards) Maria Luz Mejia MD ([facility] cards) [...] Mild coronary artery disease by [facility] 11/09/2022 I25.10 Heart failure with reduced [...] notable for coronary artery protection given low [id number] distance. There was no obstruction post Valve deployment, but the stent could not be removed safely, so it was deployed. 4.0 mm x 30mm in left main. She was loaded on brilinta aka ticagrelor. Immediately post valve deployment, chest compressions to circulate central epinephrine which was administered given her hypotension, low LVEF, and low cardiac reserve. Next, the patient was transferred to [facility] for pressor and inotropic support. Pressors [...] arms and wrists. Successful right transfemoral TAVR [id number] with a 23 mm Lai 3 THV. [...] leads Confirmed by MD Harshil, Haris Bell ([id number]) on 05/10/2023 8:11:46 AM Cardiac Cath 11/09/2022 [...] in chart review and direct patient contact. [id number] 0-5min [id number] 6-10min [id number] 11-15min [id number] 16-20min x [id number] 21-30min [id number] 31-40min [id number] 40+ min Jay Maza PA-C Interventional Cardiology [facility] Pager [phone] documented in this encounter Plan of Treatment Upcoming Encounters Date Type Department Care Team (Late st Contact Info) Description 06/01/2024 10:00 AM EDT Office [place] [phone] Magdalena Peralta MD [facility] [place] [address] 06/05/2024 2:00 PM EST Hospital Encounter Outpatient [place] [phone] Markel Borjas MD [facility] DR [place] [address] 06/05/2024 2:00 PM EST - 06/05/2024 3:00 PM EST Surgery Outpatient [place] [phone] Markel Borjas MD [facility] DR [place] [address] (OSC MSURG) BONE MARROW BIOPSY AND ASPIRATION; DIAGNOSTIC (WRVU 1.44) 06/23/2024 2:00 PM EST Office Visit [place] [phone] Markel Borjas MD [facility] DR [place] [address] 03/01/2025 4:15 PM EDT Office Visit Dermatology at [place] [address] [place] [phone] Marek Bonilla MD [address], [place] [address] Scheduled Procedures Name Priority Associated Diagnoses Date/Ti me (OSC MSURG) BONE MARROW BIOPSY AND ASPIRATION; DIAGNOSTIC (WRVU 1.44) Anemia, in pt with longstanding neutropenia 06/05/2024 2:00 PM EST documented as of this encounter Visit Diagnoses Diagnosis HFrEF (heart failure with reduced ejection fraction) Hypertension, unspecified type Aortic valve stenosis, etiology of cardiac valve disease unspecified documented in this encounter Care Teams Energy Efficiency Engineer Relationship Specialty Start Date End Date Magdalena Acosta MD [address] [place] [address] PCP - General Family Medicine 02/05/23 documented as of this encounter
--- OUTSIDE RECORDS SUMMARY | 2024-05-25 14:08 | XMS_ITS | Encounter Summary ---
[place] [address] Care Team Providers Care Wirer Name Role Phone Magdalena Acosta MD Primary Care Provider [phone] Encounter Details Date Type Department Care Team [...] 10:00 AM EDT Office [place] [phone] Magdalena Peralta MD [facility] [place] [address] 06/05/2024 2:00 PM EST Hospital Encounter [place]patient [place] [address] Markel Borjas MD [facility] [place] [address] 06/05/2024 2:00 PM EST - 06/05/2024 3:00 PM EST Surgery [place] [address] Markel Borjas MD [facility] [address] [place] [address] (OSC MSURG) BONE MARROW BIOPSY AND ASPIRATION; DIAGNOSTIC (WRVU 1.44) 06/23/2024 2:00 PM EST Office Visit [place] [phone] Markel Borjas MD [facility] [address] [place] [address] 03/01/2025 4:15 PM EDT Office Visit Dermatology at [place] [address] [place] [phone] Marek Bonilla MD [address], [place] [address] Scheduled Procedures Name Priority Associated Diagnoses Date/Ti me (OSC MSURG) BONE MARROW BIOPSY AND ASPIRATION; DIAGNOSTIC (WRVU 1.44) Anemia, in pt with longstanding neutropenia 06/05/2024 2:00 PM EST documented as of this encounter Visit Diagnoses Not on filedocumented in this encounter Care Teams Wirer Relationship Specialty Start Date End Date Magdalena Acosta MD [address] [place] [address] PCP - General Family Medicine 02/05/23 documented as of this encounter
--- OUTSIDE RECORDS SUMMARY | 2024-05-25 14:08 | XMS_ITS | Encounter Summary ---
[place] [address] Care Team Providers Care Deblocker Name Role Phone Magdalena Acosta MD Primary [...] 10:00 AM EDT Office [place] [phone] Magdalena Peralta MD [facility] DR [place] [address] 06/05/2024 2:00 PM EST Hospital Encounter Outpatient [place] [phone] Markel Borjas MD [facility] DR HEMATOLOGY [place] [address] 06/05/2024 2:00 PM EST - 06/05/2024 3:00 PM EST Surgery Outpatient [place] [address] Markel Borjas MD [facility] DR HEMATOLOGY [place] [address] (OSC MSURG) BONE MARROW BIOPSY AND ASPIRATION; DIAGNOSTIC (WRVU 1.44) 06/23/2024 2:00 PM EST Office Visit Hematology [place] [phone] Markel Borjas MD [facility] DR HEMATOLOGY [place] [address] 03/01/2025 4:15 PM EDT Office Visit Dermatology at [place] [address] [place] [phone] Marek Bonilla MD [address], [place] [address] Scheduled Procedures Name Priority Associated Diagnoses Date/Ti me (OSC MSURG) BONE MARROW BIOPSY AND ASPIRATION; DIAGNOSTIC (WRVU 1.44) Anemia, in pt with longstanding neutropenia 06/05/2024 2:00 PM EST documented as of this encounter Visit Diagnoses Not on filedocumented in this encounter Care Teams Deblocker Relationship Specialty Start Date End Date Magdalena Acosta MD [address] [place] [address] PCP - General Family Medicine 02/05/23 documented as of this encounter
--- OUTSIDE RECORDS SUMMARY | 2024-05-25 14:08 | XMS_ITS | Encounter Summary ---
[place] [address] Care Team Providers Care Branch Store Manager Name Role Phone Magdalena Acosta MD Primary Care Provider [phone] Encounter Details Date Type Department Care Team [...] 10:00 AM EDT Office [place] [phone] Magdalena Peralta MD [facility] [place] [address] 06/05/2024 2:00 PM EST Hospital Encounter Outpatient [place] [phone] Markel Borjas MD [facility] [place] [address] 06/05/2024 2:00 PM EST - 06/05/2024 3:00 PM EST Surgery [place]patient [place] [address] Markel Borjas MD [facility] [address] [place] [address] (OSC MSURG) BONE MARROW BIOPSY AND ASPIRATION; DIAGNOSTIC (WRVU 1.44) 06/23/2024 2:00 PM EST Office Visit [place] [phone] Markel Borjas MD [facility] [address] [place] [address] 03/01/2025 4:15 PM EDT Office Visit Dermatology at [place] [address] [place] [phone] Marek Bonilla MD [address], [place] [address] Scheduled Procedures Name Priority Associated Diagnoses Date/Ti me (OSC MSURG) BONE MARROW BIOPSY AND ASPIRATION; DIAGNOSTIC (WRVU 1.44) Anemia, in pt with longstanding neutropenia 06/05/2024 2:00 PM EST documented as of this encounter Visit Diagnoses Not on filedocumented in this encounter Care Teams Branch Store Manager Relationship Specialty Start Date End Date Magdalena Acosta MD [address] [place] [address] PCP - General Family Medicine 02/05/23 documented as of this encounter
--- OUTSIDE RECORDS SUMMARY | 2024-05-25 14:08 | XMS_ITS | Encounter Summary ---
[place] [address] Care Team Providers Care Director Of Manufacturing Operations Name Role Phone Magdalena Acosta MD Primary Care Provider [phone] Encounter Details Date Type Department Care Team (Latest Contact Info) Description 10/05/2023 10:52 AM EST - 10/05/2023 11:59 PM [facility] Hospital Encounter [place] [address] Mixed connective tissue disease Discharge Disposition: Home Social History Tobacco Use Types Packs/Day Years Used Date Smoking Tobacco: Never Smokeless Tobacco: Never Alcohol Use Standard Drinks/Week Comments No 0 (1 standard drink = 0.6 oz pur e alcohol) none [facility] Inpatient Questions Answer Date Recorded Does [...] 75mg once daily. 90 tablet 3 07/20/2023 nystatin (MYCOSTATIN) 100,000 unit/gram Powder Apply topically 2 times daily as needed. 10/22/2022 [employer] InteractionTouch Verio test strips Strip USE DAILY 01/03/2022 [employer] Interaction[employer] Delica Plus Lancet 33 gauge Misc USE [...] times daily. 60 tablet 3 05/22/2023 05/12/2024 hydrOXYchloroQUINE (Plaquenil) 200 mg tablet Take 1 tablet by mouth daily. 90 tablet 12 03/18/2023 05/24/2024 cyanocobalamin, Vitamin B-12, (Vitamin B-12) 1,000 mcg tablet Take 500 mcg by mouth daily. 02/22/2024 documented as of this encounter Plan of Treatment Upcoming Encounters Date Type Department Care Team (Late st Contact Info) Description 06/01/2024 10:00 AM EDT Office [place] [address] Magdalena Peralta MD [facility] [place] [address] 06/05/2024 2:00 PM EST Hospital Encounter Outpatient Surgery Center [place] [phone] Markel Borjas MD [facility] [address] [place] [address] 06/05/2024 2:00 PM EST - 06/05/2024 3:00 PM EST Surgery Out[facility] [place] [phone] Markel Borjas MD [facility] [address] [place] [address] (OSC MSURG) BONE MARROW BIOPSY AND ASPIRATION; DIAGNOSTIC (WRVU 1.44) 06/23/2024 2:00 PM EST Office Visit Hematology [place] [address] Markel Borjas MD [facility] [address] [place] [address] 03/01/2025 4:15 PM EDT Office Visit Dermatology at [place] [address] [place] [facility] [place] [address] Marek Bonilla MD [address], [place] [address] Scheduled Procedures Name Priority Associated [...] PFT FEV1/FVC Pre-BD Z-Score 0 COMPAS PFT OFF83-67 Actual Pre-BD 2.41 % COMPAS PFT RWR41-70 Predicted 1.8 % COMPAS PFT QFY27-70 Pre-BD % of Predicted 134 % COMPAS PFT JJS31-72 Pre-BD Z-Score 0.81 COMPAS PFT DLCO Hb [...] in this encounter Care Teams Director Of Manufacturing Operations Relationship Specialty Start Date End Date Magdalena Acosta MD [address] [place] [address] PCP - General Family Medicine 02/05/23 documented as of this encounter
--- OUTSIDE RECORDS SUMMARY | 2024-05-25 14:08 | XMS_ITS | Encounter Summary ---
Author Organization [facility] Address [facility] [place] [address] Care Team Providers Care Compressor Station Chief Engineer Name Role Phone Magdalena Acosta MD Primary Care Provider [phone] Encounter Details Date Type Department Care Team (Late st Contact Info) Description 07/29/2023 11:00 AM EST Office [place] [address] Magdalena Peralta MD [facility] [place] [address] Mixed connective tissue disease Social History Tobacco [...] 1:5120 speckled; VIC negative; Myositis panel with HAND MEAT SALTER ab 149.1 (positive); Anti U1RNP IgG 119; [...] Viramontes. Magdalena Peralta MD Rheumatology Fellow Pager: [phone] * Kia Viramontes DO - 07/29/2023 11:00 AM EST ATTENDING ADDENDUM The patient's history was reviewed, and I interviewed and examined the patient with Dr. Peralta I agree with her summary, findings, and plan. documented in this encounter Plan of Treatment Upcoming Encounters Date Type Department Care Team (Late st Contact Info) Description 06/01/2024 10:00 AM EDT Office [place] [address] Magdalena Peralta MD [facility] [place] [address] 06/05/2024 2:00 PM EST Hospital Encounter Outpatient [place] [address] Markel Borjas MD [facility] [place] [address] 06/05/2024 2:00 PM EST - 06/05/2024 3:00 PM EST Surgery Outpatient [place] [address] Markel Borjas MD [facility] [place] [address] (OSC MSURG) BONE MARROW BIOPSY AND ASPIRATION; DIAGNOSTIC (WRVU 1.44) 06/23/2024 2:00 PM EST Office Visit Hematology [place] [address] Markel Borjas MD [facility] [place] [address] 03/01/2025 4:15 PM EDT Office Visit Dermatology at [place] [address] [place] [address] Marek Bonilla MD [address], [place] [address] Scheduled Procedures Name Priority Associated Diagnoses Date/Ti [...] PFT FEV1/FVC Pre-BD Z-Score 0 COMPAS PFT POV01-96 Actual Pre-BD 2.41 % COMPAS PFT HVV68-39 Predicted 1.8 % COMPAS PFT XZM49-62 Pre-BD % of Predicted 134 % COMPAS PFT HER60-15 Pre-BD Z-Score 0.81 COMPAS PFT DLCO Hb [...] tissue documented in this encounter Care Teams Compressor Station Chief Engineer Relationship Specialty Start Date End Date Magdalena Acosta MD [address] [place] [address] PCP - General Family Medicine 02/05/23 documented as of this encounter
--- OUTSIDE RECORDS SUMMARY | 2024-05-25 14:08 | XMS_ITS | Encounter Summary ---
Author Organization [facility] [place] [address] Care Team Providers Care Draw Fire Operator Name Role Phone Magdalena Acosta MD Primary Care Provider [phone] Reason for Referral * Diagnostic Test (Routine) - Closed Specialty Diagnoses / Procedures Referred By Contac t Referred To Contact Cardiology Diagnoses S/P TAVR (transcatheter aortic valve replacement) Procedures Echocardiogram Transthoracic Vinod Juárez PA [facility] [place] [address] [facility] [place] [address] Referral ID Status Reason Start Date Expiration Date V isits Requested Visits Authorized [id number] Closed Specialty Service Requested 05/22/2023 05/21/2024 1 1 Reason for Visit * Diagnostic Test (Routine) - Closed Specialty Diagnoses / Procedures Referred By Contac t Referred To Contact Cardiology Diagnoses S/P TAVR (transcatheter aortic valve replacement) Procedures Echocardiogram Transthoracic Vinod Juárez PA [facility] [place] [address] [facility] [place] [address] Referral ID Status Reason Start Date Expiration Date V isits Requested Visits Authorized [id number] Closed Specialty Service Requested 05/22/2023 05/21/2024 1 1 Encounter Details Date Type Department Care Team (Latest Contact Info) Description 07/08/2023 10:19 AM EST - 07/08/2023 11:59 PM EST Hospital Encounter [place] [address] Alirio Esparza MD S/P TAVR (transcatheter aortic [...] 10:00 AM EDT [place] [address] Magdalena Peralta MD [facility] [place] [address] 06/05/2024 2:00 PM EST Hospital Encounter [place] [address] Markel Borjas MD [facility] DR HEMATOLOGY [place] [address] 06/05/2024 2:00 PM EST - 06/05/2024 3:00 PM EST Surgery [place] [address] Markel Borjas MD [facility] DR HEMATOLOGY [place] [address] (OSC MSURG) BONE MARROW BIOPSY AND ASPIRATION; DIAGNOSTIC (WRVU 1.44) 06/23/2024 2:00 PM EST Office Visit [place]ematology [place] [address] Markel Borjas MD [facility] HEMATOLOGY [place] [address] 03/01/2025 4:15 PM EDT Office Visit Dermatology at [place] [address] [place] [phone] Marek Bonilla MD [address], [place] [address] Scheduled Procedures Name Priority Associated [...] EST Narrative 07/08/2023 12:26 PM EST 1 [place] [address] ? Echocardiogram Report Name: ONESIMO THACKER ?Study Date: 07/08/2023 10:31 AMBP: 118/60 mmHg ? Patient Location: : 1955 ? Height: 155 cm ? Account: [id number] Age: 67 yrs ? Weight: 74 kg Gender: Female ?BSA: 1.7 m2 Ordering Physician: ALIRIO ESPARZA Referring Physician: VINOD JUÁREZ Performed By: Felicia Norris RDCS Reason For Study: S/P TAVR Exam [place] [facility] Interpretation Summary Left ventricular systolic function is [...] no significant change (post-procedure). Procedure Limited - 25285. Doppler - 63583. Color Doppler - 17873. Satisfactory quality. This study is limited because [...] Note Lee Kincaid MD - 07/08/2023 1 [place] [address] Echocardiogram Report Name: ONESIMO THACKER Study Date: 0:31 AMBP: 118/60 mmHg Patient Location: : 1955 Height: 155 cm Account: [id number] Age: 67 yrs Weight: 74 kg Gender: Female BSA: 1.7 m2 Ordering Physician: ALIRIO ESPARZA Referring Physician: VINOD JUÁREZ Performed By: Felicia Norris RDCS Reason For Study: S/P TAVR Exam Location: [facility] [place]. Interpretation Summary Left ventricular systolic function is [...] is nosignificant change (post-procedure). Procedure Limited - 57632. Doppler - 25971. Color Doppler - 57369. Satisfactoryquality. This study is limited because of [...] replacement) documented in this encounter Care Teams Draw Fire Operator Relationship Specialty Start Date End Date Magdalena Acosta MD [address] [place] [address] PCP - General Family Medicine 02/05/23 documented as of this encounter
--- OUTSIDE RECORDS SUMMARY | 2024-05-25 14:08 | XMS_ITS | Encounter Summary ---
Author Organization [facility] [place] [place] [address] Care Team Providers Care Black Oxide Operator Name Role Phone Magdalena Acosta MD Primary Care Provider [phone] Reason for Visit * Reason Comments Aortic Stenosis Coronary Artery Disease Hypertension Encounter Details Date Type Department Care Team (Latest Contact Info) Description 11/16/2023 11:40 AM EDT TH Visit (TeleHealth) Cardiology at [address] [address] Jay Maza PA [facility] [place] [address] Aortic valve stenosis, etiology of cardiac valve disease unspecified; Coronary artery disease, unspecified vessel or lesion type, unspecified whether angina present, unspecified whether kotlik or transplanted heart Social History Tobacco Use Types Packs/Day Years Used Date Smoking Tobacco: Never Smokeless Tobacco: Never Alcohol Use Standard Drinks/Week Comments No 0 (1 standard drink = 0.6 oz pur e alcohol) none [facility] Inpatient Questions Answer Date Recorded Does [...] from the original note were not included. [facility] Interventional Cardiology CARDIOLOGY TELE VISIT NOTE 11/16/23 Patient: Purnima Thacker Prior to the initiation of our discussion, the risks and benefits of tele health visits were discussed, and the patient consented verbally to this being a virtual telehealth visit in lieu of an in person office visit. CARDIOLOGISTS: Antelmo Sharma MD ([facility] Cards) Maria Luz Mejia MD ([facility] Cards - [facility]) Problem List: [...] fraction I35.0 Mild coronary artery disease by [facility] 11/09/2022 I25.10 Heart failure with [...] notable for coronary artery protection given low ezedn-np-sdtlczar distance. There was no obstruction post Valve [...] leads Confirmed by MD Harshil, Haris Bell ([id number]) on 05/10/2023 8:11:46 AM Cardiac Cath 11/09/2022 [...] in one year. EKATERINA Thompson Time spent: [id number] 0-5min [id number] 6-10min 2909WES4 11-15min x [id number] 16-20min 6957SCE2 21-30min 8246GHY7 31-40min 8421CRN9 40+ min Jay Maza PA-C Interventional Cardiology [facility] Heart [facility] Vascular Center [facility] Pager [phone] documented in this encounter Plan of Treatment Upcoming Encounters Date Type Department Care Team (Late st Contact Info) Description 06/01/2024 10:00 AM EDT Office Visit Rheumatology at [place] [phone] Magdalena Peralta MD [facility] [place] [address] 06/05/2024 2:00 PM EST Hospital Encounter Outpatient Surgery Center [place] [phone] Markel Borjas MD [facility] DR [place]AT[place] [address] 06/05/2024 2:00 PM EST - 06/05/2024 3:00 PM EST Surgery [facility] [place] [phone] Markel Borjas MD [facility] DR [place] [address] (OSC MSURG) BONE MARROW BIOPSY AND ASPIRATION; DIAGNOSTIC (WRVU 1.44) 06/23/2024 2:00 PM EST Office Visit Hematology and Oncology at [place] [phone] Markel Borjas MD [facility] [place] [address] 03/01/2025 4:15 PM EDT Office Visit Dermatology at [place] [address] [place] [phone] Marek Bonilla MD [address], [place] [address] Scheduled Procedures Name Priority Associated Diagnoses Date/Ti me (OSC MSURG) BONE MARROW BIOPSY AND ASPIRATION; DIAGNOSTIC (WRVU 1.44) Anemia, in pt with longstanding neutropenia 06/05/2024 2:00 PM EST documented as of this encounter Visit Diagnoses Diagnosis Aortic valve stenosis, etiology of cardiac valve disease unspecified Coronary artery disease, unspecified vessel or lesion type, unspecified whether angina present, unspecified whether kotlik or transplanted heart documented in this encounter Care Teams Black Oxide Operator Relationship Specialty Start Date End Date Magdalena Acosta MD [address] [place] [address] PCP - General Family Medicine 02/05/23 documented as of this encounter
--- OUTSIDE RECORDS SUMMARY | 2024-05-25 14:08 | XMS_ITS | Encounter Summary ---
[place] [address] Care Team Providers Care Space Studies Faculty Member Name Role Phone Magdalena Acosta MD Primary Care Provider [phone] Reason for Referral * Consultation (Routine) - Closed Specialty Diagnoses / Procedures Referred By Contac t Referred To Contact Hematology and Oncology Diagnoses Anemia, unspecified type Consuelo Guerrero DO [address] [place] [address] [address] [place] [address] [facility] [address] [place] [address] Referral ID Status Reason Start Date Expiration Date V isits Requested Visits Authorized [id number] Closed Consult, Test & Treat 04/11/2024 04/11/2025 1 1 Encounter Details Date Type Department Care Team (Late st Contact Info) Description 04/11/2024 Transcribe Orders eDH Incoming Referrals [phone] Consuelo Guerrero DO [address] [place] [address] [address] [place] [address] Anemia, unspecified type Social History Tobacco Use Types Packs/Day Years Used Date Smoking Tobacco: Never Smokeless Tobacco: Never Alcohol Use Standard Drinks/Week Comments No 0 (1 standard drink = 0.6 oz pur e alcohol) none [facility] Inpatient Questions Answer Date Recorded Does [...] 10:00 AM EDT Office [place] [address] Magdalena Peralta MD [facility] [place] [address] 06/05/2024 2:00 PM EST Hospital Encounter [place] [address] Markel Borjas MD [facility] DR HEMATOLOGY [place] [address] 06/05/2024 2:00 PM EST - 06/05/2024 3:00 PM EST Surgery [place] [phone] Markel Borjas MD [facility] DR HEMATOLOGY [place] [address] (OSC MSURG) BONE MARROW BIOPSY AND ASPIRATION; DIAGNOSTIC (WRVU 1.44) 06/23/2024 2:00 PM EST Office Visit [place]ology [place] [address] Markel Borjas MD [facility] DR HEMATOLOGY [place] [address] 03/01/2025 4:15 PM EDT Office Visit Dermatology at [address] [place] [address] Marek Bonilla MD [address], [place] [address] Scheduled Procedures Name Priority Associated Diagnoses Date/Ti [...] type documented in this encounter Care Teams Space Studies Faculty Member Relationship Specialty Start Date End Date Magdalena Acosta MD [address] [place] [address] PCP - General Family Medicine 02/05/23 documented as of this encounter
--- OUTSIDE RECORDS SUMMARY | 2024-05-25 14:08 | XMS_ITS | Encounter Summary ---
Author Organization Formerly [facility], [facility] [place] [address] Care Team Providers Care Liner Checker Name Role Phone Magdalena Acosta MD Primary Care Provider [phone] Encounter Details Date Type Department Care Team (Late st Contact Info) Description 12/02/2023 11:15 AM EDT Office [place] [address] Magdalena Peralta MD [facility] [place] [address] Mixed connective tissue disease Social History Tobacco [...] 1:5120 speckled; VIC negative; Myositis panel with EXHIBITION CARVER ab 149.1 (positive); Anti U1RNP IgG 119; [...] list of questions that she sent via [facility] ahead of her visit, which [...] exposure. She has an appointment with her Route Rider Supervisor scheduled in January. (Dr Bonilla in [place]) ROS (positives in bold): Gen: no fevers, [...] but I encouraged her to contact her Route Rider Supervisor to see if she could have [...] Dr. Tanisha Peralta MD Rheumatology Fellow Pager: [phone] * Federico Yee MD - 12/02/2023 11:15 [...] 10:00 AM EDT Office Visit Rheumatology at [place] [phone] Magdalena Peralta MD [facility] [place] [address] 06/05/2024 2:00 PM EST Hospital Encounter Outpatient Surgery Center [place] [phone] Markel Borjas MD [facility] DR HEMATOLOGY [place] [address] 06/05/2024 2:00 PM EST - 06/05/2024 3:00 PM EST Surgery Outpatient [place] [address] Markel Borjas MD [facility] [address] [place] [address] (OSC MSURG) BONE MARROW BIOPSY AND ASPIRATION; DIAGNOSTIC (WRVU 1.44) 06/23/2024 2:00 PM EST Office Visit Hematology [place] [address] Markel Borjas MD [facility] [address] [place] [address] 03/01/2025 4:15 PM EDT Office Visit Dermatology at [place] [address] [place] [address] Marek Bonilla MD [address], [place] [address] Scheduled Orders Name Type Priority Associated Diagnoses [...] tissue documented in this encounter Care Teams Liner Checker Relationship Specialty Start Date End Date Magdalena Acosta MD [address] [place] [address] PCP - General Family Medicine 02/05/23 documented as of this encounter
--- OUTSIDE RECORDS SUMMARY | 2024-05-25 14:08 | XMS_ITS | Encounter Summary ---
[place] [address] Care Team Providers Care Battalion Chief Name Role Phone Magdalena Acosta MD Primary Care Provider [phone] Encounter Details Date Type Department Care Team [...] 10:00 AM EDT Office [place] [phone] Magdalena Peralta MD [facility] [place] [address] 06/05/2024 2:00 PM EST Hospital Encounter [place] [phone] Markel Borjas MD [facility] DR [place] [address] 06/05/2024 2:00 PM EST - 06/05/2024 3:00 PM EST Surgery [place] [address] Markel Borjas MD [facility] DR HEMAT[place] [address] (OSC MSURG) BONE MARROW BIOPSY AND ASPIRATION; DIAGNOSTIC (WRVU 1.44) 06/23/2024 2:00 PM EST Office Visit [place]ematology [place] [phone] Markel Borjas MD [facility] DR HEMATOLOGY [place] [address] 03/01/2025 4:15 PM EDT Office Visit Dermatology at [place] [address] [place] [phone] Marek Bonilla MD [address], [place] [address] Scheduled Procedures Name Priority Associated Diagnoses Date/Ti me (OSC MSURG) BONE MARROW BIOPSY AND ASPIRATION; DIAGNOSTIC (WRVU 1.44) Anemia, in pt with longstanding neutropenia 06/05/2024 2:00 PM EST documented as of this encounter Visit Diagnoses Not on filedocumented in this encounter Care Teams Battalion Chief Relationship Specialty Start Date End Date Magdalena Acosta MD [address] [place] [address] PCP - General Family Medicine 02/05/23 documented as of this encounter
--- OUTSIDE RECORDS SUMMARY | 2024-05-25 14:08 | XMS_ITS | Encounter Summary ---
[place] [address] Care Team Providers Care Child Care Education Coordinator Name Role Phone Magdalena Acosta MD [...] 10:00 AM EDT Office Visit Rheumatology [place] [phone] Magdalena Peralta MD [facility] [place] [address] 06/05/2024 2:00 PM EST Hospital Encounter [place]patient [place] [phone] Markel Borjas MD [facility] DR HEMATOLOGY [place] [address] 06/05/2024 2:00 PM EST - 06/05/2024 3:00 PM EST Surgery [place] [address] Markel Borjas MD [facility] DR HEMATOLOGY [place] [address] (OSC MSURG) BONE MARROW BIOPSY AND ASPIRATION; DIAGNOSTIC (WRVU 1.44) 06/23/2024 2:00 PM EST Office Visit Hematology [place] [phone] Markel Borjas MD [facility] DR HEMATOLOGY [place] [address] 03/01/2025 4:15 PM EDT Office Visit Dermatology at [place] [address] [place] [phone] Marek Bonilla MD [address], [place] [address] Scheduled Procedures Name Priority Associated Diagnoses Date/Ti me (OSC MSURG) BONE MARROW BIOPSY AND ASPIRATION; DIAGNOSTIC (WRVU 1.44) Anemia, in pt with longstanding neutropenia 06/05/2024 2:00 PM EST documented as of this encounter Visit Diagnoses Not on filedocumented in this encounter Care Teams Child Care Education Coordinator Relationship Specialty Start Date End Date Magdalena Acosta MD [address] [place] [address] PCP - General Family Medicine 02/05/23 documented as of this encounter
--- OUTSIDE RECORDS SUMMARY | 2024-05-25 14:08 | XMS_ITS | Encounter Summary ---
[place] [address] Care Team Providers Care Parking Inspector Name Role Phone Magdalena Acosta MD Primary Care Provider [phone] Encounter Details Date Type Department Care Team (Late st Contact Info) Description 05/18/2024 Interpretation Only [address] [phone] Magdalena Acosta MD [address] [place], [place] [id number] Social History Tobacco Use Types Packs/Day Years [...] 10:00 AM EDT Office [place] [address] Magdalena Peralta MD [facility] [place] [address] 06/05/2024 2:00 PM EST Hospital Encounter Outpatient Surgery Center [place] [phone] Markel Borjas MD [facility] DR [place] [address] 06/05/2024 2:00 PM EST - 06/05/2024 3:00 PM EST Surgery [place] [phone] Markel Borjas MD [facility] DR [place] [address] (OSC MSURG) BONE MARROW BIOPSY AND ASPIRATION; DIAGNOSTIC (WRVU 1.44) 06/23/2024 2:00 PM EST Office Visit Hematology [place] [phone] Markel Borjas MD [facility] DR [place] [address] 03/01/2025 4:15 PM EDT Office Visit Dermatology at [address] [place] [address] Marek Bonilla MD [address], [place] [address] Scheduled Procedures Name Priority Associated Diagnoses Date/Ti [...] AM EDT) PT CLASS O RAD ADMITDTTM [id number] [facility] PT RAD INFO [id number]^Dave ^Magdalena RAD EXAM DESC XDXAC^BD Bone Density DEXA Axial Skeleton^RIS [facility] WORKSTATION ID RADDRIMAGE [facility] Anatomical Region Laterality Modality C-spine, [...] questions please contact the health primary care physician that requested your imaging first. ? Narrative [...] have questions please contactthe health primary care physician that requested your imaging first. Electronically signed by: Rocael Villatoro MD, [facility]([phone]), at 05/18/2024 11:25 AM Magdalena Acosta MD IMG DEXA ORDERABLES documented in this encounter Visit Diagnoses Not on filedocumented in this encounter Care Teams Parking Inspector Relationship Specialty Start Date End Date Magdalena Acosta MD [address] [place] [address] PCP - General Family Medicine 02/05/23 documented as of this encounter
--- OUTSIDE RECORDS SUMMARY | 2024-05-25 14:08 | XMS_ITS | Encounter Summary ---
Author Organization [facility] [place] [address] Care Team Providers Care Furnishings Conservator Name Role Phone Magdalena Acosta MD Primary Care Provider [phone] Reason for Visit * Reason Comments Follow-up * Consultation (Routine) - Closed Specialty Diagnoses / Procedures Referred By Contac t Referred To Contact Hematology and Oncology Diagnoses Anemia, unspecified type Consuelo Guerrero, DO [address] [place] [address] [place] [address] [facility] Hem Onc [address] [place] [address] Referral ID Status Reason Start Date Expiration Date V isits Requested Visits Authorized [id number] Closed Consult, Test & Treat 04/11/2024 04/11/2025 1 1 Encounter Details Date Type Department Care Team (Late st Contact Info) Description 05/12/2024 10:00 AM EDT Office Visit Hematology [place] [address] Markel Borjas MD [facility] [place] [address] Chronic idiopathic neutropenia Social History Tobacco Use Types Packs/Day Years Used Date Smoking Tobacco: Never Smokeless Tobacco: Never Alcohol Use Standard Drinks/Week Comments No 0 (1 standard drink = 0.6 oz pur e alcohol) none [facility] Inpatient Questions Answer Date Recorded Does Anyone [...] 05/12/2024 10:00 AM EDT Hematology Outpatient Clinic [facility] Hematology Outpatient Consult Note CC: 60 [...] TOUCH PREP, CLOT SECTION, CORE BIOPSY); [OSR# [id number], COLLECTED 06/23/2016, 19 SLIDES]: 1. 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 pantoprazole EC (Protonix) 40 [...] intact. Extremities: No edema. Labs: Hgb= 11.7 Jctf=815 ANC= 2.5 Assessment: 60 year-old woman found [...] 10:00 AM EDT Office [place] [address] Magdalena Peralta MD [facility] [address] 06/05/2024 2:00 PM EST Hospital Encounter Outpatient [place] [address] Markel Borjas MD [facility] [place] [address] 06/05/2024 2:00 PM EST - 06/05/2024 3:00 PM EST Surgery Outpatient [place] [phone] Markel Borjas MD [facility] [place] [address] (OSC MSURG) BONE MARROW BIOPSY AND ASPIRATION; DIAGNOSTIC (WRVU 1.44) 06/23/2024 2:00 PM EST Office Visit Hematology [place] [address] Markel Borjas MD [facility] [place] [address] 03/01/2025 4:15 PM EDT Office Visit Dermatology at [place] [address] [place] [phone] Marek Bonilla MD [address] [facility] [facility] [place] [address] Scheduled Orders Name Type Priority [...] EDT 05/12/2024 8:56 AM EDT Tova Russell BIODIESEL DIVISION MANAGER HEMATOLOGY ORDERABL ES [facility] [place] [address] * (ABNORMAL) Comprehensive metabolic panel Non-fasting (05/12/2024 8:56 AM EDT) Glucose 86 65 - 199 mg/dL 05/12/2024 11:36 AM [facility] Comment:Glucose Concentratio n >=200 mg/dL plus symptoms is consistent with Diabetes Mellitus. Blood Urea Nitrogen 20(H) 8 - 18 mg/dL 05/12/2024 11:36 AM [facility] Creatinine 0.88 0.70 - 1.20 mg/dL 05/12/2024 11:36 AM [facility] Sodium 145 135 - 145 mMol/L 05/12/2024 11:36 AM [facility] Potassium 4.6 3.5 - 5.0 mMol/L 05/12/2024 11:36 AM [facility] Chloride 109(H) 98 - 107 mMol/L 05/12/2024 11:36 AM [facility] Carbon Dioxide 21(L) 22 - 31 mMol/L 05/12/2024 11:36 AM [facility] Anion Gap 15 5 - 15 mMol/L 05/12/2024 11:36 AM [facility] Comment:Not Calculated. Calcium 9.9 8.5 - 10.5 mg/dL 05/12/2024 11:36 AM [facility] Protein, Total 7.3 6.1 - 8.0 g/dL 05/12/2024 11:36 AM [facility] Albumin 4.5 3.2 - 5.2 g/dL 05/12/2024 11:36 AM [facility] Aspartate Aminotransferase 24 <=30 unit/L 05/12/2024 11:36 AM [facility] Alanine Aminotransferase 14 0 - 30 unit/L 05/12/2024 11:36 AM [facility] Alkaline Phosphatase 98 35 - 105 unit/L 05/12/2024 11:36 AM [facility] Bilirubin, Total 0.2 <=1.3 mg/dL 05/12/2024 11:36 AM [facility] Est Glomerular Filtration Rate - Female 72 mL/min/1. 73 m?? 05/12/2024 11:36 AM [facility] Comment: This patient's [...] Foundation Fasting Status No 05/12/2024 11:36 AM [facility] Blood VENOUS BLOOD SPECIMEN / Unknown Venipuncture / Unknown 05/12/2024 8:56 AM EDT 05/12/2024 8:56 AM EDT Tova Russell BIODIESEL DIVISION MANAGER CHEMISTRY ORDERABLE S [facility] [place] [address] * (ABNORMAL) CBC (with Diff) (05/12/2024 8:56 [...] - 14.1 % 05/12/2024 9:[address] [facility] NRBC% auto 0.0 % 05/12/2024 9:32 AM [facility] NRBC Absolute <0.01 <0.01 x10(3)/mc L 05/12/2024 9:32 AM [facility] Neutrophil % 69.7 % 05/12/2024 9:32 AM [facility] Neutrophil Absolute (ANC) - Automated 2.42 1.70 - 6.10 x10(3)/mc L 05/12/2024 9:32 AM [facility] Lymph % 16.7 % 05/12/2024 9:32 AM [facility] Lymph Absolute 0.58(L) 0.90 - 3.20 x10(3)/mc L 05/12/2024 9:32 AM [facility] Monocyte % 12.1 % 05/12/2024 9:32 AM [facility] Monocyte Absolute 0.42 0.30 - 0.90 x10(3)/mc L 05/12/2024 9:32 AM [facility] Eos % 0.6 % 05/12/2024 9:32 AM [facility] Eos Absolute <0.04 0.00 - 0.40 x10(3)/mc L 05/12/2024 9:32 AM [facility] Basophil % 0.6 % 05/12/2024 9:32 AM [facility] Baso Absolute <0.04 0.00 - 0.10 x10(3)/mc L 05/12/2024 9:32 AM [facility] Immature Gran % 0.3 % 9:32 AM [facility] Immature Gran Absolute <0.04 0.00 - 0.04 x10(3)/mc L 05/12/2024 9:32 AM [facility] Blood VENOUS BLOOD SPECIMEN / Unknown Venipuncture / Unknown 05/12/2024 8:56 AM EDT 05/12/2024 8:56 AM EDT Tova Russell BIODIESEL DIVISION MANAGER HEMATOLOGY ORDERABL ES [facility] [place] [address] documented in this encounter Visit Diagnoses Diagnosis Chronic idiopathic neutropenia Other neutropenia documented in this encounter Care Teams Furnishings Conservator Relationship Specialty Start Date End Date Magdalena Acosta MD [address] [place] [address] PCP - General Family Medicine 02/05/23 documented as of this encounter
--- OUTSIDE RECORDS SUMMARY | 2024-05-25 14:08 | XMS_ITS | Encounter Summary ---
[place] [address] Care Team Providers Care Legal Writing Professor Name Role Phone Magdalena Acosta MD Primary Care Provider [phone] Reason for Visit * Reason Onset Date Comments Pre Procedure Call 03/01/2024 DAPT hold for EGD and colo? Encounter Details Date Type Department Care Team (Late st Contact Info) Description 03/01/2024 Telephone Cardiology at [address] [phone] Cynthia Monsalve RN Pre Procedure Call (DAPT hold for EGD and colo?) Social History Tobacco Use Types Packs/Day Years Used Date Smoking Tobacco: Never Smokeless Tobacco: Never Alcohol Use Standard Drinks/Week Comments No 0 (1 standard drink = 0.6 oz pur e alcohol) none [facility] Inpatient Questions Answer Date Recorded Does [...] safe. Jay Message above left with Yenifer (computer repair instructor), who would be leaving this note in patient's chart for providers to schedule patient. No further questions or needs at this time. This nurse stated, note will be placed regarding this call in our chart for patient. Kezia Whitney RN, BSN Ambulatory Cardiology Clinic, [facility] [phone] * Telephone Encounter - Cynthia Monsalve RN [...] 10:00 AM EDT Office [place] [address] Magdalena Peralta MD [facility] [place] [address] 06/05/2024 2:00 PM EST Hospital Encounter [place] [address] Markel Borjas MD [facility] [place] [address] 06/05/2024 2:00 PM EST - 06/05/2024 3:00 PM EST Surgery [place] [phone] Markel Borjas MD [facility] DR [place] [address] (OSC MSURG) BONE MARROW BIOPSY AND ASPIRATION; DIAGNOSTIC (WRVU 1.44) 06/23/2024 2:00 PM EST Office Visit Hematology [place] [address] Markel Borjas MD [facility] DR [place] [address] 03/01/2025 4:15 PM EDT Office Visit Dermatology at [place] [address] [facility] [place] [address] Marek Bonilla MD [address], [place] [address] Scheduled Procedures Name Priority Associated Diagnoses Date/Ti me (OSC MSURG) BONE MARROW BIOPSY AND ASPIRATION; DIAGNOSTIC (WRVU 1.44) Anemia, in pt with longstanding neutropenia 06/05/2024 2:00 PM EST documented as of this encounter Visit Diagnoses Not on filedocumented in this encounter Care Teams Legal Writing Professor Relationship Specialty Start Date End Date Magdalena Acosta MD [address] [place] [address] PCP - General Family Medicine 02/05/23 documented as of this encounter
--- OUTSIDE RECORDS SUMMARY | 2024-05-25 14:08 | XMS_ITS | Encounter Summary ---
Author Organization Count Includes [facility] [place] [address] Care Team Providers Care Car Repairer Helper Name Role Phone Magdalena Acosta MD Primary Care Provider [phone] Reason for Referral * Diagnostic Test (Routine) - New Request Specialty Diagnoses / Procedures Referred By Contac t Referred To Contact Cardiology Diagnoses S/P TAVR (transcatheter aortic valve replacement) Procedures Echocardiogram Transthoracic Antelmo Sharma MD [facility] [place] [address] [facility] [place] [address] Referral ID Status Reason Start Date Expiration Date Visits Requested Visits Authorized [id number] New Request Specialty Service Requested 12/16/2023 12/15/2024 1 1 Encounter Details Date Type Department Care Team (Late st Contact Info) Description 12/16/2023 Orders Only Cardiology at [address] [address] Antelmo Sharma MD [facility] [place] [address] S/P TAVR (transcatheter aortic valve [...] 10:00 AM EDT Office Visit Rheumatology at [place] [phone] Magdalena Peralta MD [facility] [place] [address] 06/05/2024 2:00 PM EST Hospital Encounter Outpatient Surgery Center [place] [phone] Markel Borjas MD [facility] DR HEMATOLOGY [place] [address] 06/05/2024 2:00 PM EST - 06/05/2024 3:00 PM EST Surgery Outpatient Surgery Center [place] [phone] Markel Borjas MD [facility] DR [place] [address] (OSC MSURG) BONE MARROW BIOPSY AND ASPIRATION; DIAGNOSTIC (WRVU 1.44) 06/23/2024 2:00 PM EST Office Visit Hematology [place] [phone] Markel Borjas MD [facility] DR [place] [address] 03/01/2025 4:15 PM EDT Office Visit Dermatology at [place] [address] [place] [address] Marek [place]illa MD [address], [place] [address] Scheduled Orders Name Type Priority Associated Diagnoses [...] replacement) documented in this encounter Care Teams Car Repairer Helper Relationship Specialty Start Date End Date Magdalena Acosta MD [address] [place] [address] PCP - General Family Medicine 02/05/23 documented as of this encounter
--- OUTSIDE RECORDS SUMMARY | 2024-05-25 14:08 | XMS_ITS | Encounter Summary ---
Author Organization [place] [place] [address] Care Team Providers Care Manager Cargo Name Role Phone Magdalena Acosta MD Primary Care Provider [phone] Encounter Details Date Type Department Care Team (Late st Contact Info) Description 05/27/2023 Refill Cardiology at [address] [phone] Vero Marrero, RN Social History Tobacco Use Types Packs/Day Years Used Date Smoking Tobacco: Never Smokeless Tobacco: Never Alcohol Use Standard Drinks/Week Comments No 0 (1 standard drink = 0.6 oz pur e alcohol) none [facility] Inpatient Questions Answer Date Recorded Does [...] EDT TC to Nurse Sosa at [facility] to relay response from Jay Maza copied below. Nurse Sosa states they will send a new prescription to patient's preferred pharmacy and call the patient with the medication information. No print prescription sent to update med list. May 27, 2023 Jay Maza PA to Id 05/27/23 2:44 PM OK to change ticagrelor to Clopidogrel. Now, she should be taking ticagrelor 90mg BID. When she switches, she can take ticagrelor, then the next morning, stop ticagrelor, instead take clopidogrel 300mg once, then after that 75mg once daily. Jay Marre[facility] [phone] * Telephone Encounter - Vero Marrero RN - 05/27/2023 1:46 PM EDT VM received from triage nurse Sosa at [facility] stating patient was seen today by [...] more affordable option, if possible. Vero Marrero [facility] [phone] documented in this encounter Plan of Treatment Upcoming Encounters Date Type Department Care Team (Late st Contact Info) Description 06/01/2024 10:00 AM EDT Office [place] [address] Magdalena Peralta MD [facility] [place] [address] 06/05/2024 2:00 PM EST Hospital Encounter Outpatient Surgery [facility] [place] [phone] Markel Borjas MD [facility] [place] [address] 06/05/2024 2:00 PM EST - 06/05/2024 3:00 PM EST Surgery [place]patient [place] [address] Markel Borjas MD [facility] [address] [place] [address] (OSC MSURG) BONE MARROW BIOPSY AND ASPIRATION; DIAGNOSTIC (WRVU 1.44) 06/23/2024 2:00 PM EST Office Visit Hematology [place] [phone] Markel Borjas MD [facility] DR [place] [address] 03/01/2025 4:15 PM EDT Office Visit Dermatology at [place] [address] [place] [address] Marek Bonilla MD [address], [place] [address] Scheduled Procedures Name Priority Associated Diagnoses Date/Ti me (OSC MSURG) BONE MARROW BIOPSY AND ASPIRATION; DIAGNOSTIC (WRVU 1.44) Anemia, in pt with longstanding neutropenia 06/05/2024 2:00 PM EST documented as of this encounter Visit Diagnoses Diagnosis Aortic valve stenosis, etiology of cardiac valve disease unspecified documented in this encounter Care Teams Manager Cargo Relationship Specialty Start Date End Date Magdalena Acosta MD [address] [place] [address] PCP - General Family Medicine 02/05/23 documented as of this encounter
--- OUTSIDE RECORDS SUMMARY | 2024-05-25 14:09 | XMS_ITS | Encounter Summary ---
[place] [address] Care Team Providers Care Oxygen Plant Operator Name Role Phone Magdalena Acosta MD Primary Care Provider [phone] Reason for Visit * Auth/Cert (Routine) Specialty Diagnoses / Procedures Referred By Contac t Referred To Contact Diagnoses Symptomatic severe aortic stenosis with low ejection fraction NSTEMI, CHF Haris Chua MD [facility] [place] [address] [facility] Referral ID Status Reason Start Date Expiration Date Visits Re quested Visits Authorized [id number] 1 1 Encounter Details Date Type Department Care Team (Late st Contact Info) Description 05/12/2023 7:35 AM EDT Anesthesia Event [place] [address] Lynda Mcgowan MD [facility] DR [place] [address] Alie Park MD [facility] [place] [address] Anesthesia Record Procedure Summary Procedure Name Responsible [...] cephalic vein (lateral side of arm), left; [id number] catheter system; Anatomical Landmarks; US Not Used; [...] RN LDA Cath/EP Sheath 05/12/23; 0733; 14 Danish (Fr); Right; Femoral; Arterial 05/12/23 0733 by Guerda Bender, RN 05/12/23 0830 by Guerda Bender RN LDA Cath/EP Sheath 05/12/23; 0734; 6 Danish (Fr); Right; Femoral; Venous 05/12/23 0734 by Guerda Bender RN 05/12/23 0817 by Guerda Bender RN LDA Cath/EP Sheath 05/12/23; 0734; 7 Danish (Fr); Left; Femoral; Arterial 05/12/23 0734 by Guerda Bender, RN 05/12/23 0837 by Guerda Bender RN LDA Cath/EP Sheath 05/12/23; 0734; 6 Danish (Fr); Left; Femoral; Venous 05/12/23 0734 by [...] by Lynda Mcgowan MD 05/12/23 1608 by aRymond Thapa RT Arterial Line 05/12/23; 0957; 05/13/23; [...] Procedure Summary Date: 05/12/23 Room / Location: [facility] / [facility] Anesthesia Start: 734 Anesthesia [...] All Anesthesia Providers: Anesthesiologist: Lynda Mcgowan MD [employer] Hatcher[employer] Manager: Nico Graham MD Vitals Value Taken [...] 05/08/2023 ??? Mild coronary artery disease by [facility] 11/09/2022 05/08/2023 ??? Heart failure [...] IMG S&I N/A 11/09/2022 CORONARY ANGIOGRAPHY; W [facility],POSSIBLE PCI (WRVU 5.6) performed by Nitesh Escobedo MD at [facility] ??? PRO AORTOPLAS FOR SUPRAVALV STEN N/A 09/21/2016 @AORTOPLASTY FOR SUPRAVALVULAR STENOSIS (WRVU 29.33) performed by Alirio Esparza MD at [facility] MAIN OR ??? PRO REPLACEMENT PROSTHETIC AORTIC VALVE OPEN W CARDIOPULMONARY BYPASS HOMOGRF/STENT N/A 09/21/2016 @REPLACE AORTIC VALVE, OPEN, W\CPB, W\PROSTHETIC VALVE (WRVU 41.32) performed by Alirio Esparza MD at [facility] MAIN OR Social History Tobacco Use [...] 3 general, with a(n) intravenous induction Add-on [id number] TAVR. In cardiogenic shock. Has arterial line, [...] 10:00 AM EDT Office [place] [phone] Magdalena Peralta MD [facility] [place] [address] 06/05/2024 2:00 PM EST Hospital Encounter Outpatient [place] [phone] Markel Borjas MD [facility] DR HEMATOLOGY [place] [address] 06/05/2024 2:00 PM EST - 06/05/2024 3:00 PM EST Surgery Outpatient [place] [phone] Markel Borjas MD [facility] DR HEMATOLOGY [place] [address] (OSC MSURG) BONE MARROW BIOPSY AND ASPIRATION; DIAGNOSTIC (WRVU 1.44) 06/23/2024 2:00 PM EST Office Visit Hematology [place] [phone] Markel Borjas MD [facility] DR HEMATOLOGY [place] [address] 03/01/2025 4:15 PM EDT Office Visit Dermatology at [address] [phone] Marek Bonilla MD [address] [facility] [address], [place] [address] Scheduled Procedures Name Priority Associated [...] mL/hr documented in this encounter Care Teams Oxygen Plant Operator Relationship Specialty Start Date End Date Magdalena Acosta MD [address] [place] [address] PCP - General Family Medicine 02/05/23 documented as of this encounter
--- OUTSIDE RECORDS SUMMARY | 2024-05-25 14:09 | XMS_ITS | Encounter Summary ---
Author Organization [facility] Address [facility] [place] [address] Care Team Providers Care Vp Software Name Role Phone Magdalena Acosta MD Primary Care Provider [phone] Reason for Referral * Diagnostic Test (Routine) - Closed Specialty Diagnoses / Procedures Referred By Contac t Referred To Contact Cardiology Diagnoses S/P TAVR (transcatheter aortic valve replacement) Procedures Echocardiogram Transthoracic Vinod Juárez PA [facility] [place] [address] [facility] [place] [address] Referral ID Status Reason Start Date Expiration Date V isits Requested Visits Authorized [id number] Closed Specialty Service Requested 05/22/2023 05/21/2024 1 1 * Home Health Care (Routine) - Closed Specialty Diagnoses / Procedures Referred By Contac t Referred To Contact Diagnoses S/P TAVR (transcatheter aortic valve replacement) Alirio Hudson MD [facility] CARDIOTHORACIC SURGERY [address] [facility] & [address] [place] [address] Referral ID Status Reason Start Date Expiration Date V isits Requested Visits Authorized [id number] Closed Consult, Test & Treat 05/22/2023 11/18/2023 999 999 * Consultation (Routine) - Closed Specialty Diagnoses / Procedures Referred By Crispin maxwell Referred To Contact Cardiology Diagnoses S/P TAVR (transcatheter aortic valve replacement) Alirio Hudson MD [facility] [place] [address] Cardiac Rehab, [address] [place] [address] Referral ID Status Reason Start Date Expiration Date V isits Requested Visits Authorized [id number] Closed Consult, Test & Treat 05/22/2023 11/18/2023 36 36 * Diagnostic Test (Routine) - Closed Specialty Diagnoses / Procedures Referred By Crispin maxwell Referred To Contact Cardiology Diagnoses Aortic valve stenosis, etiology of cardiac valve disease unspecified Procedures Echocardiogram Transthoracic Transesophageal Echocardiogram (YUSRA) Radha Hollins MD [facility] [place] [address] [facility] [place] [address] Referral ID Status Reason Start Date Expiration Date V isits Requested Visits Authorized [id number] Closed Specialty Service Requested 05/11/2023 05/10/2024 1 1 Reason for Visit * Auth/Cert (Routine) Specialty Diagnoses / Procedures Referred By Crispin maxwell Referred To Contact Diagnoses Symptomatic severe aortic stenosis with low ejection fraction NSTEMI, CHF Enrique Chua MD [facility] [place] [address] [facility] Referral ID Status Reason Start Date Expiration Date Visits Re quested Visits Authorized [id number] 1 1 Encounter Details Date Type Department Care Team (Latest Contact Info) Description 05/08/2023 9:14 AM EDT - 05/22/2023 10:46 AM EDT Hospital Encounter Heart and Vascular Unit Level 4 [place] [address] Enrique Chua MD [facility] [place] [address] Juan Luis Gonzalez MD [facility] [place] [address] Radha Hollins MD [facility] [address] Alirio Hudson MD S/P TAVR (transcatheter aortic valve replacement) (Primary Dx); Aortic valve stenosis, etiology of cardiac valve disease unspecified; Symptomatic severe aortic stenosis with low ejection fraction; Heart failure with reduced ejection fraction due to heart valve disease; Mild coronary artery disease by [facility] 11/09/2022; Mixed connective tissue disease; Neck [...] with PCP, Magdalena Acosta MD, or Primary Bench Boring Machine Operator, Maria Luz Mejia MD, in ~ 7-10 days. Patient to follow up with Industrial Pharmacist, Dr. Antelmo Sharma, in 2 weeks with an EKG, Echo, CBC, and CMP. Patient to follow up with Nephrology, their office to arrange. Tfqo-Punnzi-pi interval: After initial 30 day follow-up appointment , all TAVR patients will follow-up again in one year with an echo. 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 Secondary Diagnoses: Active Hospital Problems Diagnosis S/P TAVR (transcatheter aortic valve replacement) Cardiogenic shock Symptomatic severe aortic stenosis with low ejection fraction Mild coronary artery disease by [facility] 11/09/2022 Heart failure with reduced ejection [...] Tube Placement Right 05/18/2023 Laure Ricks PA [facility] INTERVENTIONL RAD PRG CATH PLMT LEFT HEART CATH & ARTS W/INJ & ANGIO IMG S&I N/A 11/09/2022 CORONARY ANGIOGRAPHY; W [facility],POSSIBLE PCI (WRVU 5.6) performed by Mario Alberto Escobedo MD at [facility] CATH LABS PRG COMBINED RIGHT & LEFT HEART CATH W/INJ L VENTRICULOGRAPHY, IMG S&I N/A 05/12/2023 COMBINED RIGHT & LEFT HEART CATH,INC INJ FOR L VENTRICULOGRAPHY (WRVU 5.99) performed by Antelmo Sharma MD at [facility] CATH LABS PRO AORTOPLAS FOR SUPRAVALV STEN N/A 09/21/2016 @AORTOPLASTY FOR SUPRAVALVULAR STENOSIS (WRVU 29.33) performed by Alirio Hudson MD at [facility] MAIN OR PRO REPLACE AORTIC VALVE (TAVR/FEDERICO)PERC FEMORAL ARTERY APPROACH 05/12/2023 @TRANSCATHETER AORTIC VALVE REPLACEMENT (TAVR), PERCUTANEOUS FEMORAL (WRVU 22.47) performed by Alirio Hudson MD at [facility] CATH LABS PRO REPLACEMENT PROSTHETIC AORTIC VALVE OPEN W CARDIOPULMONARY BYPASS HOMOGRF/STENT N/A 09/21/2016 @REPLACE AORTIC VALVE, OPEN, W\CPB, W\PROSTHETIC VALVE (WRVU 41.32) performed by Alirio Hudson MD at [facility] MAIN OR [...] Major Procedures/Operations: 05/12/23: Successful right transfemoral TAVR Arzvx-tu-Egbjb with a 23 mm Lai 3 THV. Left coronary protection with left main MINNA. Hospital Course: #Severe prosthetic s/p valve in valve TF TAVR #Low coronary heights s/p left main stent for coronary protection #Type 2 NSTEMI, present on arrival, resolved #Acute decompensated HFrEF #Cardiogenic shock #EVANS / Cardiorenal syndrome Purnima Thacker was admitted to [facility] on 05/08/2023 via the Cardiology [...] and she was brought to the laborer mine the following morning where Drs. Alirio Hudson [...] if you have questions. Please call your Industrial Pharmacist's office if you have any discharge or drainage from your procedural sites. Your Industrial Pharmacist, Dr. Antelmo Sharma and/or the Men'S Leather Dress Belt Maker may be reached at . Antibiotic prophylaxis: You will need to take antibiotics prior to many invasive tests and treatments, such as dental cleaning, which should be done every 6 months. Your primary care physician or your dentist can prescribe this medication. Please refer to the card with the [place] [employer] Guidelines for more information. You have been provided with a copy of this card. Please refer to the [place] [employer] Guidelines for more information. Good [...] should resume a low fat, low cholesterol, [place] [employer] Diet Driving: No restrictions. Shower/Bath: You may shower daily. No baths, soaking, or swimming for the first week. Wound care: Wash the sites daily with soap and rinse well, pat dry. Assess for any signs of infection such as increased redness, pain, warmth or drainage. Please call your wood planer's office if you have any discharge or drainage from your procedural sites. If there is a lot of swelling, apply mamta wraps during the day and remove at bedtime. Elevate your legs when you are sitting. Home oxygen therapy: N/A Follow up appointments: Please schedule a follow-up appointment with your PCP, Magdalena Acosta MD, or Primary Bench Boring Machine Operator in ~ 7-10 days. You have a follow-up appointment with your Industrial Pharmacist, Dr. Antelmo Sharma, in 2 weeks with an EKG, Echo, and labs prior to your appointment. You will need follow-up with Nephrology, their office will arrange. Qlkg-Uyrozr-wk interval: After initial 30 day follow-up appointment [...] 11:00 AM Magdalena Peralta MD [place] at [facility] Arrive at: Chiropractor Assistant Area 5C [phone] 02/11/2024 2:00 PM Marek Bonilla MD Dermatology at [place] Arrive at: [facility] [address] [phone] Future Orders Complete By Expires Type and Screen Future Surgery, [facility] SAME DAY PROGRAM ONLY) [[id number] Custom] 05/11/2023 Process Instructions: This test is intended ONLY for patients with upcoming surgery for testing prior to the day of surgery obtained through the same day program (4V or SDP). For ALL OTHER PATIENTS, order a Type and Screen (CPO857) This order includes the physician order for an ABO Recheck if requested by the Blood Bank. Scheduling Instructions: Comments: Questions: Date of surgery: CBC (with Diff) [[id number] Custom] 06/05/2023 12/05/2023 Process Instructions: INCLUDES: WBC, RBC, Hgb, Hct, Platelets, RBC Indices and Differential Scheduling Instructions: Comments: Questions: Comprehensive metabolic panel (non-fasting) [LAB17 Custom] 06/05/2023 08/20/2023 Process Instructions: INCLUDES: Calcium, T Protein, Albumin, AST, ALT, Alk Phos, T Bili, BUN, Creat, GFR, Glucose, Lytes. Scheduling Instructions: Comments: Questions: Echocardiogram Transthoracic [22535 CPT(R)] 06/05/2023 12/05/2023 Process Instructions: Scheduling Instructions: Questions: Where will study be performed?: [facility] Does the patient have Congenital Heart Disease?: Does patient require sedation?: GA rationale: EKG 12 Lead [88620 CPT(R)] 06/05/2023 12/05/2023 Process Instructions: Scheduling Instructions: Questions: Which location will this be performed?: [place] Is a rhythm strip needed?: No [facility] Devices [EQ161 Custom] As directed Process Instructions: Scheduling Instructions: Questions: Device Needed: WALKER (E0143) Patient Height (cm): 154.9 cm (5' 0.98) Patient Weight: 75.4 kg (166 lb 3.2 oz) Diagnosis: Unsteady gait when walking Referral to Cardiac Rehab [EXH906 Custom] As directed Process Instructions: If no [...] FOR VNA SERVICES PATIENT'S LOCATION: Purnima Thacker [address] [place] [phone] (home) [employer] Machines Setter's Name: Self and brother Raymond In discussion with the attending physician, it is certified that this patient is under his/her careand that MD, or an TABLE RUNNER, AUDIOLOGY ASSISTANT, or PA who is working directly with him/her, had a ogtf-we-zrxg encounter that meets the physician vgol-ft-bpyl encounter requirements with this patient on 05/22/2023. [...] for managing ADLs. HOME HEALTH CARE AGENCY: [facility]. [address] [place] [address] PHONE: [phone] FAX: [phone] Start of care: Ideally 24-48 hours after [...] [address] / [facility] [address] All VNA agencies which cover the area of patient's residence have been reviewed, either verbally joao writing, and patient has chosen the home health care agency noted. Questions: Disciplines Requested: Physical Therapy Occupational Therapy Discharge References/Attachments None Arrangements for VNA/home care: As above. (delete if no VNA) Signed: EKATERINA NAVARRETE [facility] Section of Cardiac Surgery Date: 05/22/2023 CC: Magdalena Acosta MD SangerMario Alberto MD [address] [place] [address] documented in this encounter Discharge Instructions * Patient Instructions* Vinod Juárez PA - 05/22/2023 9:32 AM EDT TAVR Discharge Instructions: Call your doctor if: You have a fever of greater than 101 degrees, shaking chills, if you develop redness or drainage from your procedure sites, or if you have questions. Please call your Industrial Pharmacist's office if you have any discharge or drainage from your procedural sites. Your Industrial Pharmacist, Dr. Antelmo Sharma and/or the Men'S Leather Dress Belt Maker may be reached at . Antibiotic prophylaxis: You will need to take antibiotics prior to many invasive tests and treatments, such as dental cleaning, which should be done every 6 months. Your primary care physician or your dentist can prescribe this medication. Please refer to the card with the [place] [employer] Guidelines for more information. You have been provided with a copy of this card. Please refer to the [place] [employer] Guidelines for more information. Good [...] should resume a low fat, low cholesterol, [place] [employer] Diet Driving: No restrictions. Shower/Bath: You may shower daily. No baths, soaking, or swimming for the first week. Wound care: Wash the sites daily with soap and rinse well, pat dry. Assess for any signs of infection such as increased redness, pain, warmth or drainage. Please call your wood planer's office if you have any discharge or drainage from your procedural sites. If there is a lot of swelling, apply mamta wraps during the day and remove at bedtime. Elevate your legs when you are sitting. Home oxygen therapy: N/A Follow up appointments: Please schedule a follow-up appointment with your PCP, Magdalena Acosta MD, or Primary Bench Boring Machine Operator in ~ 7-10 days. You have a follow-up appointment with your Industrial Pharmacist, Dr. Antelmo Sharma, in 2 weeks with an EKG, Echo, and labs prior to your appointment. You will need follow-up with Nephrology, their office will arrange. Gazq-Vpyoak-if interval: After initial 30 day follow-up appointment [...] 360 days. 180 tablet 3 05/22/2023 05/27/2023 hydrOXYchloroQUINE (Plaquenil) 200 mg tablet Take 1 [...] ins ( tef) Haven Ba, PT Pager: [phone] Physical Therapy Inpatient Rehabilitation Department * Nico [...] 0600 and on the weekends please page [phone]. * Jory Paniagua - 05/20/2023 3:52 PM [...] vomiting Last Bowel Movement: 05/20/23 Jory Paniagua Volunteer Recruitment Coordinator * Tong Mike, OT - 05/20/2023 [...] Tube Placement Right 05/18/2023 Laure Ricks PA [facility] INTERVENTIONL RAD PRG CATH PLMT LEFT HEART CATH & ARTS W/INJ & ANGIO IMG S&I N/A 11/09/2022 CORONARY ANGIOGRAPHY; W [facility],POSSIBLE PCI (WRVU 5.6) performed by Mario Alberto Escobedo MD at [facility] CATH LABS PRG COMBINED RIGHT & LEFT HEART CATH W/INJ L VENTRICULOGRAPHY, IMG S&I N/A 05/12/2023 COMBINED RIGHT & LEFT HEART CATH,INC INJ FOR L VENTRICULOGRAPHY (WRVU 5.99) performed by Antelmo Sharma MD at [facility] CATH LABS PRO AORTOPLAS FOR SUPRAVALV STEN N/A 09/21/2016 @AORTOPLASTY FOR SUPRAVALVULAR STENOSIS (WRVU 29.33) performed by Alirio Hudson MD at [facility] MAIN OR PRO REPLACE AORTIC VALVE (TAVR/FEDERICO)PERC FEMORAL ARTERY APPROACH 05/12/2023 @TRANSCATHETER AORTIC VALVE REPLACEMENT (TAVR), PERCUTANEOUS FEMORAL (WRVU 22.47) performed by Alirio Hudson MD at [facility] CATH LABS PRO REPLACEMENT PROSTHETIC AORTIC VALVE OPEN W CARDIOPULMONARY BYPASS HOMOGRF/STENT N/A 09/21/2016 @REPLACE AORTIC VALVE, OPEN, W\CPB, W\PROSTHETIC VALVE (WRVU 41.32) performed by Alirio Hudson MD at [facility] MAIN OR Social History: Patient lives alone. Home Setup: Pt lives on one level with tub shower and three steps to enter. DME: none used PSYCHOTHERAPIST COUNSELOR Baseline ADL/Mobility: Independent with ADLs and IADLs. [...] WFL Vision & Perception: corrective lenses time signal wirer Communication: WFL Range of motion, strength, coordination: [...] Disposition (OT): swing bed rehabilitation facility, senior living facility(vs home with support for IADLs) Other [...] Discharge planning. Total Minutes, Occupational Therapy: 28 ([id number]) OT Evaluation Code Rationale: Diagnosis & Pertinent Co-Morbidities affecting Plan of Care: see PMHx Occupational Profile & Client History: Brief Expanded Extensive x Assessment of Occupational Performance: 1-3 performance deficits 3-5 performance deficits x 5 + performance deficits Clinical Decision Making: Low Moderate High x Clinical decision making of moderate complexity using standardized patient assessment instrument and measurable assessment of functional outcome. Pager: [phone] TONG MIKE OT 05/20/2023 Occupational Therapy Rehabilitation [...] 0600 and on the weekends please page [phone]. * Rylie Rodriguez MD - 05/19/2023 3:59 [...] and plan. Cynthia Blackburn MD Nephrology Pager: [phone] * Diana Espino - 05/19/2023 1:49 PM EDT Vmware Consultant Encounter Note Patient Name: Purnima Thacker : [id number] MR#: [id number] Admit Date: 05/08/2023 9:14 AM Hospital Day [...] home alone. Anticipated Discharge Disposition (PT): senior living facility, swing bed rehabilitation facility Consult Recommendations: [...] as stated. Total Minutes, Physical Therapy: 38 ([phone]) Henrik Navarrete, PSYCHOTHERAPIST COUNSELOR Pager: [phone] Physical Therapy Inpatient Rehabilitation Department * Nico [...] 0600 and on the weekends please page [phone]. * Laure Ricks PA - 05/19/2023 7:56 [...] Ricks PA-C Interventional Radiology IR Team Pager [phone] * Consuelo Espinoza RN - 05/18/2023 4:13 PM EDT ANGIO NURSING DATABASE Name: Purnima Thacker Date of : 1955 AGE: 67 y.o. Address: [address] [place] [phone] (home) Mobile: No relevant phone numbers on [...] fraction I35.0 Mild coronary artery disease by [facility] 11/09/2022 I25.10 Heart failure with reduced [...] Latest Reference Range & Units 05/17/23 04:35 10/17/23 02:54 Sodium 135 - 145 mmol/L 135 [...] and plan. Cynthia Blackburn MD Nephrology Pager: [phone] * Magdalena Puri, NIPPLE MACHINE OPERATOR - 05/18/2023 10:51 AM EDT Images from the original note were not included. Formerly [facility] [place] [address] STRUCTURAL HEART DISEASE CONSULTATION NOTE PRIMARY CARE [...] stenosis. She is now status post TAVR Gpgxm-wj-Svjtd with a 23 mm Lai 3 THV 05/12/[address] Sharma. Preliminary findings: Successful right transfemoral TAVR Gwvph-kc-Atccr with a 23 mm Lai 3 THV. [...] ejection fraction Mild coronary artery disease by [facility] 11/09/2022 Heart failure with reduced ejection [...] Oral Daily Mara SerranoANURAG 2 tablet at 05/16/232111 bisacodyL (Dulcolax) suppository 10 mg 10 mg Rectal Daily PRN WilsonMara ernandez APRN melatonin tablet 6 mg 6 [...] stenosis. She is now status post TAVR Wlkrk-ir-Uakfq with a 23 mm Lai 3 THV 05/12/[address] Sharma. Janet TAVR case notable for coronary LAD protective MINNA. Status post TAVR, the patient was transferred to [facility] for pressor and inotropic support. Pressors weaned [...] Magdalena Puri APRN Structural Heart Team Pager [phone] Team Office Please see addendum by Dr. Sharma for final plan and recommendations Associated attestation - Antelmo Sharma MD - 05/19/2023 10:52 PM EDT I have reviewed Magdalena Puri APRN's above history and I agree with the details as written. The assessment and plan were formulated in discussion with me and I agree with them as documented. Antelmo Sharma MD Pager [phone] * Nico Palacios PA - 05/18/2023 8:13 [...] 0600 and on the weekends please page [phone]. * Loli Hernandez, PT - 05/17/2023 5:27 [...] et al., 2008) References: Sriram Mackay L. Ferrucci, et al. (2000). Lower extremity function and [...] home alone. Anticipated Discharge Disposition (PT): senior living facility, swing bed rehabilitation facility Consult Recommendations: [...] plan as stated. Time IN / OUT: 1211-7967 Total Minutes, Physical Therapy: 54 Billing Code: te-sx2, te-f, gait LOLI HERNANDEZ PT Pager: [phone] Physical Therapy Inpatient Rehabilitation Department * Cynthia [...] Well controlled. Cynthia Blackburn MD Nephrology Pager: [phone] * Maggie Mara, NIPPLE MACHINE OPERATOR - 05/17/2023 8:26 AM EDT Cardiac [...] 0600 and on the weekends please page [phone]. * Guerda Del Valle - 05/16/2023 10:44 AM EDT Nutrition Services Note - Low Nutrition Acuity Purnima Thacker is a 67 y.o. female Reason for intervention: hospital day 9 Nutrition Plan: Continue diet order Encourage good PO Lasix and Zofran noted Added special serve: open containers Monitor weight Patient scheduled for a hospital day 9 nutrition evaluation. Certified Ophthalmic Technologist met with pt at bedside. Pt reports that her appetite and PO has much improved since admission. Denies nausea/vomiting or trouble chewing/swallowing. Certified Ophthalmic Technologist provided snack list but pt not interested in adding snacks at this time. Her only concern was that she is worried that she will eat too much which will cause too much pressure in her stomach. Certified Ophthalmic Technologist assured pt and suggested eating smaller but [...] Last Bowel Movement: 05/10/23 Guerda Del Valle Volunteer Recruitment Coordinator * Vinod Juárez PA - 05/16/2023 [...] attending surgeon on rounds this morning. EKATERINA NAVARRTEE 05/16/2023 Between the hours of 1800 - 0600 and on the weekends please page [phone]. * Michael Jeffers MD - 05/16/2023 8:11 AM EDT Images from the original note were not included. Hypertension-Nephrology Inpatient Follow-up Purnima Thacker [id number] 1955 ID: 67 y.o. old female seen [...] IRONSAT 12 (L) 05/16/2023 SFOLATE >20.0 07/03/2022 [id number] 07/03/2022 Lab Results Component Value Date [...] Dr. Ayoub. Please contact me at phone: [phone] or pager: [phone] with any questions. Michael Jeffers MD Nephrology [...] -Nephrology consulted, labs and renal US ordered -[place] removed, ambulated around the unit -bilateral pleural [...] b/l, no evidence of hematoma. Tubes/Lines/Drains: Rubens GAYTAN, ROSAURA Assessment/Plan: 67 y.o. female 3 Days Post-Op s/p Jaent TF TAVR. Preoperative presentation in cardiogenic shock. [...] 0600 and on the weekends please page [phone]. * Hortencia Cody MD - 05/15/2023 2:07 [...] not included. Hypertension-Nephrology Inpatient Follow-up Purnima Thacker [id number] 1955 ID: 67 y.o. old female seen [...] HGB 7.8 (L) 05/13/2023 SFOLATE >20.0 07/03/2022 [id number] 07/03/2022 Lab Results Component Value Date ALBUMIN 3.6 05/14/2023 ALBUMIN 3.0 (L) 05/13/2023 ALBUMIN 3.5 05/12/2023 Assessment & Plan: Purnima M Kirstie is a 67 y.o. female admitted in [...] Dr. Ayoub. Please contact me at phone: [phone] or pager: [phone] with any questions. Michael Jeffers MD Nephrology [...] outlined inthis evaluation. HAVEN BA, PT Pager: [phone] Physical Therapy Inpatient Rehabilitation Department Time IN / OUT: 0624-2091 Total time: Total Minutes, Physical Therapy: 30 [...] on the weekends please page [phone]. * Antelmo Sharma MD - 05/14/2023 7:56 AM EDT Images from the original note were not included. [place] [place] [id number] STRUCTURAL HEART DISEASE CONSULTATION NOTE PRIMARY CARE [...] stenosis. She is now status post TAVR Pvdwh-zv-Mlkdt with a 23 mm Lai 3 THV 05/12/[address] Sharma. Preliminary findings: Successful right transfemoral TAVR Kxosp-at-Lhshs with a 23 mm Lai 3 THV. [...] ejection fraction Mild coronary artery disease by [facility] 11/09/2022 Heart failure with reduced ejection [...] Oral Daily Lorri Chinchilla PA 2tablet at 05/13/234 [START ON 05/15/2023] bisacodyL (Dulcolax) suppository 10 [...] stenosis. She is now status post TAVR Avhog-dv-Xwskk with a 23 mm Lai 3 THV 05/12/[address] Sharma. Janet TAVR case notable for coronary LAD protective MINNA. Status post TAVR, the patient was transferred to [facility] for pressor and inotropic support. Pressors weaned [...] Brody Kaplan APRN Structural Heart Team Pager [phone] Team Office Please see addendum by Dr. [...] DYLAN with her contrast exposure. Nephrology consultationtoday. Anetlmo Sharma MD Pager [phone] * Antelmo Cardenas RN - 05/14/2023 5:18 AM EDT Pt AOx4, complaining of mild/moderate generalized pain (states her Meloxicam is effective at home) currently refusing prn oxycodone. NAEON, hemodynamically stable on Milrinone, Maps >65, ST in [id number]'s down to NSR with frequent multifocal PVC's. [...] the original note were not included. Formerly [facility] [place] [address] STRUCTURAL HEART DISEASE PROGRESS NOTE PRIMARY CARE [...] stenosis. She is now status post TAVR Ywucd-xr-Mwfyc with a 23 mm Lai 3 THV 05/12/[address] Sharma. Preliminary findings: Successful right transfemoral TAVR Vqrhd-mb-Bypwv with a 23 mm Lai 3 THV. [...] Interval Events: - Transferred to [facility] post- TAVR for pressor/inotropic support (Levo, vaso, [...] ejection fraction Mild coronary artery disease by [facility] 11/09/2022 Heart failure with reduced ejection [...] stenosis. She is now status post TAVR Odqfs-av-Jbdtv with a 23 mm Lai 3 THV [...] Brody Kaplan APRN Structural Heart Team Pager [phone] Team Office Please see addendum by Dr. [...] DAPT moving forward. Antelmo Sharma MD Pager [phone] * Bonita Miguel PA - 05/13/2023 8:30 AM EDT Cardiac Surgery Progress Note Purnima Thacker is a 67 y.o. 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 PMH of s/p tissue AVR (2017), mixed connective tissue disease HTN, HLD, NICOLAS, diverticulosis, rosacea, essential tremor, and depression. 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 Tubes/Lines/Drains: Greencreek, RIJ, A-line, Art, PIV Assessment/Plan: 67 y.o. [...] 0600 and on the weekends please page [phone]. * Onelia Schwartz MD - 05/12/2023 1:44 [...] ejection fraction Mild coronary artery disease by [facility] 11/09/2022 Heart failure with reduced ejection [...] FiO2 weaned to 40%. 1105: ABG 7.34/42/73/22 [id number]: SBT performed and passed on these settings [...] PCP: Magdalena Acosta MD PCP phone number: [phone] Date of Admission: 05/08/2023 ( Hospital Day [...] 1447 PHART -- 7.34* 7.34* -- -- GGB3PRM -- 30* 30* -- -- PO2ART -- 72* 81* -- -- AVX3TKE -- 16.0* 15.7* -- -- LACTATEVEN 2.4* 2.7* 2.7* 4.8* 2.9* VBG (Venous Blood Gas) Recent Labs 05/12/23 0700 05/12/23 0318 05/12/2310505/11/23193905/11/23 1447 LACTATEVEN 2.4* 2.7* 2.7* 4.8* 2.9* Mixed Venous Sat Recent Labs 05/12/23 0508 05/12/23 0321 05/12/23 0114 05/12/23 0030 T7RDSP1 30.7 32.7 37.3 25.1 Objective: Vitals Last [...] Pulmonary Artery Catheter - Single Lumen 05/12/23 0030 Right internal jugular vein (Active) Venous Infusion [...] swelling;no warmth 05/11/231999 Interventions other (see comments) 10/10/23 1500 Peripheral IV Line - Single Lumen 05/11/231999 22 gauge (Active) Indication/Daily Review of Necessity medication therapy intermittent 05/11/231999 Site Preparation/Maintenance dressing: dry and intact 05/11/231999 Securement catheter stabilization device, secured with 05/11/231999 Patency/Maintenance flushed without difficulty;blood return, able to obtain 05/11/231999 Phlebitis 0-->no symptoms 05/12/23599 Infiltration 0-->no symptoms 05/12/23599 Site Signs/Symptoms no redness;no swelling;no warmth 05/11/231999 Labs: Recent Labs 05/12/2310405/11/2344105/10/238 05/09/23 0400 05/08/23 1138 WBC 9.0 7.0 [...] who have questions please contact the health emergency care tech that requested your imaging first. Cardiac for [...] who have questions please contact the health emergency care tech that requested your imaging first. Angiogram Abdomen [...] who have questions please contact the health emergency care tech that requested your imaging first. Chest One [...] who have questions please contact the health emergency care tech that requested your imaging first. Chest One View (Exam End: 05/12/2023 1:00 AM) Impression * Right IJV approach pulmonary arterial catheter terminates in the right interlobar pulmonary artery near its bifurcation. Please retract 5 to 7 cm. * Increased pulmonary vascular congestion, interstitial/alveolar edema, and medium-sized bilateral pleural effusions. Ze Umaña, discussed the above findings with Dr. Klaudia Reid on 05/12/2023 at 3:15 AM and verified understanding. Thank you for letting us participate in the care of this patient. If you are a health care provider and have any questions regarding this report, please contact the number below. For patients who have questions please contact the health emergency care tech that requested your imaging first. Assessment & [...] and inotrope. She is planned for a huxgt-dl-fgwpq TAVR this morning, which should hopefully improve [...] MD, FACP, FACC Section of Cardiovascular Medicine [facility] Brush Stainerdie maker bench stamping [facility] at [facility] * [...] with pulmonary edema. Patient seen and examined. Prunima Thacker is a 67 y.o. female has issues that include: Active Hospital Problems Diagnosis Cardiogenic shock Symptomatic severe aortic stenosis with low ejection fraction Mild coronary artery disease by [facility] 11/09/2022 Heart failure with reduced ejection [...] 05/11/2023 4:11 PM EDT Reported off to CAKE BATTER MIXER and pt transferred over in the bed for higher level of care. * Antelmo Sharma MD - 05/11/2023 9:45 AM EDT Images from the original note were not included. [place] [place] [id number] STRUCTURAL HEART DISEASE CONSULTATION NOTE PRIMARY CARE [...] who had been referred for possible TAVR yxnyk-yt-aozoi evaluation. Her primary symptoms are of dyspnea [...] [facility]. 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 [...] ejection fraction Mild coronary artery disease by [facility] 11/09/2022 Heart failure with reduced ejection [...] hour(s)) Lactate, whole blood, send to lab ([facility]) Result Value Ref Range Lactate WB 3.1 (H) 0.5 - 2.2 mmol/L Heparin (unfractionated) Level Result Value Ref Range Heparin UFH Level 0.46 IU/mL Lactate, whole blood, send to lab ([facility]) Result Value Ref [...] leads Confirmed by MD Harshil, Enrique Bell ([id number]) on 05/10/2023 8:11:46 AM Cardiac Cath 11/09/2022 [...] alert Dr. Hudson of her inpatient status, [place] primary cardiac surgeon. Based on recent clinic [...] HFrEF, she was transferred to [facility] this afternoon for further management. TAVR CT imaging support for adequate ileofemoral access. Given her acute deterioration today, will planfor RTF TAVR on 05/12/2023. Brody KaplanANURAG Structural Heart Disease Pager [phone] Please see addendum by Dr. Sharma for [...] signed and dated. Antelmo Sharma MD Pager [phone] * Harini Lance MD - 05/11/2023 6:06 AM EDT Images from the original note were not included. Cardiology Progress Note Patient info: Name: Purnima Thacker : 1955 PCP: Magdalena Acosta MD PCP phone number: [phone] Date of Admission: 05/08/2023 ( Hospital Day [...] who have questions please contact the health emergency care tech that requested your imaging first. : 05/08 [...] 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) Mild coronary artery disease by [facility] 11/09/2022 Hyperlipidemia, unspecified NICOLAS (obstructive sleep [...] PCP: Magdalena Acosta MD PCP phone number: [phone] Date of Admission: 05/08/2023 ( Hospital Day [...] 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) Mild coronary artery disease by [facility] 11/09/2022 Hyperlipidemia, unspecified NICOLAS (obstructive sleep [...] PCP: Magdalena Acosta MD PCP phone number: [phone] Date of Admission: 05/08/2023 ( Hospital Day [...] Gas) No results found for: PHART, PO2ART, HNQ2DLW, QNC2YZL Microbiology: Microbiology Results (Last 30 days) No [...] PPx: Diet: Daily Healthy Menu Choices/Cardiac diet ([facility]) Lines: Peripheral IV Line - [...] 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) Mild coronary artery disease by [facility] 11/09/2022 Hyperlipidemia, unspecified NICOLAS (obstructive sleep [...] fraction I35.0 Mild coronary artery disease by [facility] 11/09/2022 I25.10 Heart failure with reduced ejection fraction due to heart valve disease I50.20, I38 Cardiogenic shock R57.0 S/P TAVR (transcatheter aortic valve replacement) Z95.2 Past Medical History: Diagnosis Date Anemia Past Surgical History: Procedure Laterality Date PRG CATH PLMT LEFT HEART CATH & ARTS W/INJ & ANGIO IMG S&I N/A 11/09/2022 CORONARY ANGIOGRAPHY; W [facility],POSSIBLE PCI (WRVU 5.6) performed by Mario Alberto Escobedo MD at [facility] CATH LABS PRO AORTOPLAS FOR SUPRAVALV STEN N/A 09/21/2016 @AORTOPLASTY FOR SUPRAVALVULAR STENOSIS (WRVU 29.33) performed by Alirio Hudson MD at [facility] MAIN OR PRO REPLACEMENT PROSTHETIC AORTIC VALVE OPEN W CARDIOPULMONARY BYPASS HOMOGRF/STENT N/A 09/21/2016 @REPLACE AORTIC VALVE, OPEN, W\CPB, W\PROSTHETIC VALVE (WRVU 41.32) performed by Alirio Hudson MD at [facility] MAIN OR Social History and [...] when experiencing pain .). 30 tablet 5 spironolactone (ALDACTONE) 25 mg [...] fraction I35.0 Mild coronary artery disease by [facility] 11/09/2022 I25.10 Heart failure with reduced ejection fraction due to heart valve disease I50.20, I38 Cardiogenic shock R57.0 S/P TAVR (transcatheter aortic valve replacement) Z95.2 Past Medical History: Diagnosis Date Anemia Past Surgical History: Procedure Laterality Date PRG CATH PLOH LEFT HEART CATH & ARTS W/INJ & ANGIO IMG S&I N/A 11/09/2022 CORONARY ANGIOGRAPHY; W [facility],POSSIBLE PCI (WRVU 5.6) performed by Mario Alberto Escobedo MD at [facility] CATH LABS PRO AORTOPLAS FOR SUPRAVALV STEN N/A 09/21/2016 @AORTOPLASTY FOR SUPRAVALVULAR STENOSIS (WRVU 29.33) performed by Alirio Hudson MD at [facility] MAIN OR PRO REPLACEMENT PROSTHETIC AORTIC VALVE OPEN W CARDIOPULMONARY BYPASS HOMOGRF/STENT N/A 09/21/2016 @REPLACE AORTIC VALVE, OPEN, W\CPB, W\PROSTHETIC VALVE (WRVU 41.32) performed by Alirio Hudson MD at [facility] MAIN OR Social History and [...] Hgb 10.5 CMP - Cr 1.1 BNP 76427 HsTrop 1358 Lactate 1.6 D-dimer 1183 Interval History Patient was admitted to [facility] due to concern on low BP iso [...] Klaudia Reid MD Internal Medicine PGY-1 Pager [phone], M1-S1 Service Associated attestation - Juan Luis Gonzalez MD - 05/08/2023 10:00 PM EDT Cardiology Attending Addendum Active Hospital Problems Diagnosis Symptomatic severe aortic stenosis with low ejection fraction Heart failure with reduced ejection fraction due to heart valve disease Mild coronary artery disease by [facility] 11/09/2022 Hyperlipidemia, unspecified History of aortic valve replacement Resolved Hospital Problems No resolved problems to display. I have interviewed and examined the patient, reviewed the available data, and have discussed my findings, assessment and plan with the patient and the team on admission to S2 service (from [facility] service) today. I agree with Dr. Reid's [...] PCP: Magdalena Acosta MD PCP phone number: [phone] Date of Admission: 05/08/2023 ( Hospital Day [...] Hgb 10.5 CMP - Cr 1.1 BNP 68323 HsTrop 1358 Lactate 1.6 D-dimer 1183 Vasoactive [...] #Routine Diet: Daily Healthy Menu Choices/Cardiac diet ([facility]) DVT Prophylaxis: heparin gtt GI Prophylaxis: none Code Status: Attempt Cardiopulmonary Resuscitation - Inpatient Dispo: Pending clinical course Lincoln Sal MD Internal Medicine, PGY-1 Cardiology [facility] #[id number] 05/08/23 12:06 PM Cardiology Staff Addendum [...] to the planned procedure. Hand Hygiene: The roller turner did perform hand hygiene prior to arterial [...] Successful arterial line placement. Crispin Timmons MD Men'S Leather Dress Belt Maker Associated attestation - Onelia Schwartz MD - [...] (flow was non-pulsatile) and appearance of blood. Greencreek-Marily catheter was placed and locked at 55 [...] information for follow-up [facility], [place] [address] [place] [address] Cardiac Rehab, [facility] [address] [place] [address] [place] [address] [facility], [place] [address] [place] [address] Transportation: family or friend will provide *Brother [...] Type: *No Product type* / Secondary Insurance: [employer] [place] Prescription Coverage: Yes This plan was formulated with input from patient, family (please identify family/friend involved ifapplicable) and team. All are in agreement with plan. Aliza Martion MSN-Ed, RN ACM seat pack inspector Office of Care Management Pager #[phone] * Plan of Care - Favian Mckeon [...] Chaudhary RN - 05/21/2023 4:46 PM EDTSummary: [place] [facility] referral OFFICE OF CARE [...] Type: *No Product type* / Secondary Insurance: [employer] [facility] Last Physical Therapy Recommendation: (Home with assist from Brother; Friend arriving Tues) with walker, front wheeled Last Occupational Therapy Recommendation: swing bed rehabilitation facility, senior living facility (vs home with support for IADLs) with walker, front wheeled, shower chair Plan for discharge is: Home w/ Services Outpatient Agency/Support Group Needs: Homecare agency Home Health Services: Physical Therapy, Occupational Therapy Agency Referrals: I have met with the patient to: discuss discharge planning needs. describing our affiliations within the [facility] and educate about their right to choose where referrals are sent. provide a list of Home Health Agencies / Durable Medical Equipment vendors which serve their preferred geographic area. They have requested referrals to: [facility] [address] [place] [id number] [facility] [place] Note routed to a Franchise Sales Director who will communicate referrals to facilities and provide any required information. Transportation: family or friend will provide *Brother Raymond on Tuesday 05/22 at 1000 Barriers to discharge: Does not have home 22/02 assist available until tomorrow Tuesday 05/22 Plan going forward: Discharge home into the 22/02 home care of brother Raymond with [facility] and [place] [facility] PT/OT services on Tuesday [...] Attending: All Staff: Staff Role Juanita Almaguer Sap Payroll Consultant Laure Ricks PA Physician Tumbler Plater Magdalena Rodriguez cultural historian Nurse Consueol Espinoza RN Radiology Nurse Post-operative diagnosis/Indication: Right [...] Type: *No Product type* / Secondary Insurance: [employer] [place] Last Physical Therapy Recommendation: senior living facility, swing bed rehabilitation facility with to be determined Last Occupational Therapy Recommendation: with Plan for discharge is: Long-Term Facility / Swing Outpatient Agency/Support Group Needs: None Agency Referrals: Based on discussions with the multi-disciplinary healthcare team, the patient would benefit from SNF / Swing level of care at discharge. I have met with the patient to: discuss discharge planning needs. provide the [facility], Office of Care Management letter from the Hospital Manager pertaining to rehab referrals. provide a letter describing our affiliations within the [facility] and educate about their right to choose where referrals are sent. provide the CMS Star Quality Rating handout. review the different levels of rehab including SNF, swing, and acute. provide a list of facilities within their preferred geographic area. request that they provide at least three choices for referral. They have requested referrals to: [facility] [address] [place] [address] [facility] ([facility]) [address] [place] [address] (Accepts pts only after exhausting all other local SNF options) [facility] ([facility]) ([facility]) [address] [place] [address] PHONE: [phone] FAX: [phone] [facility] [place] ([facility]) [facility]) [address] [place] [address] PHONE: [phone] FAX: [phone] Note routed to a Franchise Sales Director who will communicate referrals to facilities and [...] Crenshaw RN - 05/17/2023 10:25 AM EDT [facility] Purnima Thacker was [...] from the original note were not included. [facility] NEPHROLOGY/HYPERTENSION CONSULT NOTE PATIENT: Purnima Thacker [...] in her course. She ultimately underwent a bepjo-wc-ayzge procedure on and tolerated it well (see operative details). [facility] and sedated on some pressors support.. [...] Oral Daily Vasoactive/Sedating Meds: milrinone 0.125 mcg/kg/min (05/14/230) niCARdipine VITALS: Last value Range last 24 [...] GLUCOSE 120 107 -- 167 Recent Labs 05/14/2310905/13/2311423 0600 05/09/23 0400 05/08/23 1600 05/08/23 1138 CALCIUM 8.5 8.3* 8.6 < > -- 9.4 MAGNESIUM -- -- -- -- 0.82 0.76 PHOS -- -- -- -- -- 4.7* < > = values in this interval not displayed. ABG (Arterial Blood Gas) Recent Labs 05/12/23 1557 05/12/23 1423 05/12/23 1105 PHART 7.39 7.37 7.34* QCP3TLT 33* 36 42 PO2ART 101 102 73* UYO0HUR 19.5* 20.4 22.1 LACTATEVEN 1.5 1.8 2.8* MBV6QOJ 40 40 40 PFRATIOART2 252 255 182 VBG (Venous Blood Gas) Recent Labs 05/12/23 1557 05/12/23 1423 05/12/23 1105 LACTATEVEN 1.5 1.8 2.8* Mixed Venous Sat Recent Labs 05/12/23 1425 05/12/23 0508 05/12/23 0321 U8HPBW1 59.9 30.7 32.7 LFT's: Recent Labs 05/14/23 0110 05/13/23 0115 05/12/23 0600 BILITOT 0.4 0.5 0.9 BILIDIR -- 0.3 -- ALBUMIN 3.6 3.0* 3.5 ALKPHOS 86 85 100 ALT 437* 903* 1,174* AST 319* 792* 1,435* No results found for: UPROTCREAT No results found for: TPROTEINPEP, ALBELECT No results found for: MICROALBUR, PSSM52RFA No results found for: HA1C Lab Results Component Value Date CALCIUM 8.5 05/14/2023 PHOS 4.7 (H) 05/08/2023 No results found for: 25OHVITD MICROBIOLOGY: ProcedureComponentValueUnitsDate/TimeUrine culture [[id number]]Collected: 05/11/231921Lab Status: Final resultSpecimen: Clean Catch UrineUpdated: [...] consulted for assessment if this patient needs JAVA GRAILS DEVELOPER. Atthis time, we can likely hold off on JAVA GRAILS DEVELOPER. Her volume status appears sufficient and her metabolic kanwal angements with mild acidosis is not too profound. Patient does not have significant uremic symptoms. We can hold off for today, but the patient is a high risk candidate for needing JAVA GRAILS DEVELOPER in future daysespecially if her Cr curve trends the direction it is for the next several days. S/p Afmkn-sr-Rxpwp TF TAVR: Management per cardiology. On milrinone gtt. PLAN: - Please obtain following diagnostics: renal US, urinalysis, urine prot/Cr ratio, urine albumin/Cr ratio, CK, uric acid, serum osmol, daily VBGs - No acute indications for JAVA GRAILS DEVELOPER/dialysis. We will keep close eye on Cr trend, volume status, and metabolics to ensure patient still does not need JAVA GRAILS DEVELOPER as she ensues intrinsic renal recovery - [...] M.H.A., M.A. PGY-V Nephrology-Hypertension Fellow Page # [phone] [facility] [address] 2nd floor, Chiropractor Assistant [address] [place] [address] * Care Management - Mario Alberto Olmos [...] Type: *No Product type* / Secondary Insurance: [facility] [place] Plan for discharge is: Home w/o Services [...] for a TAVR at 730. Returned to [facility] at 0945. Was intubated in the laborer mine due to agitation. Maintained bedrest for 5 [...] Operative Note Patient Name: Purnima Thacker : [id number] MR#: [id number] Case Date: 05/12/2023 Surgeon: Surgeon(s) and Role: [...] procedure Note: Patient Name: Purnima Thacker : [id number] MR#: [id number] Case Date: 05/12/2023 Operators Surgeon: Surgeon(s) and [...] main with 4.0 x 30 mm Resolute [place] [facility] Eluting Stent Perclose x1 + Angio-seal 8 Fr x1, RFA Manual pressure, LFA Manual pressure, LFV Endotracheal intubation (performed by cardiac anesthesia) Preliminary findings: Successful right transfemoral TAVR Ungfy-ww-Iczrs with a 23 mm Lai 3 THV. [...] MD, M.Sc. Structural Heart Disease Fellow Pager :[phone] Antelmo Sharma MD Pager [phone] * Op Note - Alirio Hudson MD - 05/12/2023 7:37 AM EDT Preop Diagnosis: Severe aortic stenosis, symptomatic. Postop Diagnosis: Same. Procedure: Transfemoral TAVR procedure with 23mm valve. Surgeon: Alirio Hudson M.D. Bench Boring Machine Operator: Danny CULP Procedure: The patient was taken to the laborer mine. The patient had monitored anesthesia care. 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 [facility] [place] [address] STRUCTURAL HEART DISEASE CONSULTATION NOTE PRIMARY CARE [...] who had been referred for possible TAVR kfitm-wo-yllab evaluation. Her primary symptoms are of dyspnea [...] [facility]. 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 [...] ejection fraction Mild coronary artery disease by [facility] 11/09/2022 Heart failure with reduced ejection [...] hour(s)) Lactate, whole blood, send to lab ([facility] Result Value Ref [...] leads Confirmed by MD Harshil, Enrique Bell ([id number]) on 05/10/2023 8:11:46 AM Assessment and Plan: [...] Antelmo Sharma MD Structural Heart Disease Pager [phone] * Plan of Care - Sarahi Nice RN - 05/10/2023 3:55 AM EDTSumcaydeny: RN Note and Care Plan Sarahi Nice RN assumed care of pt at time of their arrival to room 362 from [facility]. Pt voices shortness of breath at time [...] care in [place] must abide by [place] law. The hierarchy [...] Current DME: none Home Address confirmed as: [address] [place] [id number] Social & Family Supports: All names listed [...] Type: *No Product type* / Secondary Insurance: [employer] [facility] [place] ONLY if patient has Medicare A&B - Does this patient have secondary insurance?: Yes ; Prescription Coverage: Yes Preferred Pharmacy: updated to appiris in [facility] Status: Patient is a : No Primary Care Provider confirmed: Magdalena Acosta MD [phone] Patient/Caregiver Goals of Treatment: Potential Needs for [...] of care planning. Alie Bradshaw RN, CM [phone] * Plan of Care - Emily Lucero [...] 10:00 AM EDT Office [place] [address] Magdalena Peralta MD [facility] [place] [address] 06/05/2024 2:00 PM EST Hospital Encounter [facility] [place] [address] Markel Borjas MD [facility] [place] [address] 06/05/2024 2:00 PM EST - 06/05/2024 3:00 PM EST Surgery [facility]patient [place] [address] Markel Borjas MD [facility] DR [place] [address] (OSC MSURG) BONE MARROW BIOPSY AND ASPIRATION; DIAGNOSTIC (WRVU 1.44) 06/23/2024 2:00 PM EST Office Visit Hematology and Oncology at [facility] [place] [address] Markel Borjas MD [facility] DR [place] [address] 03/01/2025 4:15 PM EDT Office Visit Dermatology at [place] [address] [place] [id number] Marek Bonilla MD [address], [place] [address] Scheduled Procedures Name Priority Associated Diagnoses Date/Ti [...] Heart Cath W/Inj L Ventriculography, Img S&I ([id number]) 05/12/2023 7:37 AM EDT Aortic valve stenosis, [...] 4:00 AM EDT DIFFERENTIAL, AUTOMATED Routine 05/09/20 23 4:00 AM EDT CBC (WITH DIFF) Routine [...] EST Narrative 07/08/2023 12:26 PM EST [address] [place] [address] ? Echocardiogram Report Name: KIRSTIE PURNIMA M ?Study Date: 07/08/2023 10:31 AMBP: 118/60 mmHg ? Patient Location: : 1955 ? Height: 155 cm ? Account: [id number] Age: 67 yrs ? Weight: 74 kg Gender: Female ?BSA: 1.7 m2 Ordering Physician: ALIRIO HUDSON Referring Physician: VINOD JUÁREZ Performed By: Felicia Norris RODOLFO Reason For Study: S/P TAVR Exam Location: [facility]. Interpretation Summary Left ventricular [...] no significant change (post-procedure). Procedure Limited - 66922. Doppler - 73800. Color Doppler - 05698. Satisfactory quality. This study is limited because [...] Note Lee Kincaid MD - 07/08/2023 [address] [place] [id number] Echocardiogram Report Name: PURNIMA THACKER Study Date: 0:31 AMBP: 118/60 mmHg Patient Location: : 1955 Height: 155 cm Account: [id number] Age: 67 yrs Weight: 74 kg Gender: Female BSA: 1.7 m2 Ordering Physician: ALIRIO HUDSON Referring Physician: VINOD JUÁREZ Performed By: Felicia Norris RDCS Reason For Study: S/P TAVR Exam Location: [facility]. Interpretation Summary Left ventricular [...] is nosignificant change (post-procedure). Procedure Limited - 65029. Doppler - 28884. Color Doppler - 50315. Satisfactoryquality. This study is limited because of [...] EST) Glucose 93 65 - 199 mg/dL [facility] Comment:Diabetes: >=200 mg/d L plus symptoms Blood Urea Nitrogen 19(H) 8 - 18 mg/dL [facility] Creatinine 0.81 0.70 - 1.20 mg/dL [facility] Sodium 142 135 - 145 mmol/L [facility] Potassium 3.8 3.5 - 5.0 mmol/L [facility] Comment: Please note: ??Patients with WBC >100,000 may have falsely elevated Potassium levels. ??For accurate Potassium quantification in these patients send serum separator tube (gold top) for subsequent determinations. ??Contact the Clinical Chemistry Laboratory if there are any questions. Chloride 104 98 - 107 mmol/L [facility] Carbon Dioxide 26 22 - 31 mmol/L [facility] Anion Gap 12 5 - 15 mmol/L [facility] Calcium 10.2 8.5 - 10.5 mg/dL [facility] Protein, Total 7.4 6.1 - 8.0 g/dL [facility] Albumin 4.1 3.2 - 5.2 g/dL [facility] Aspartate Aminotransferase 24 0 - 30 unit/L [facility] Alanine Aminotransferase 12 0 - 30 unit/L [facility] Alkaline Phosphatase 93 35 - 105 unit/L [facility] Bilirubin, Total 0.3 0.2 - 1.3 mg/dL [facility] Est Glomerular Filtration Rate 80 >=60 mL/min/1. 73 m?? [facility] Comment: This patient's estimated GFR [...] Lab Alirio Hudson MD CHEMISTRY ORDERABLE S [facility] [place] [address] * (ABNORMAL) Basic Metabolic Panel (non-fasting) (05/22/2023 3:57 AM EDT) Glucose 88 65 - 199 mg/dL [facility] Comment:Diabetes: >=200 mg/d L plus symptoms Blood Urea Nitrogen 21(H) 8 - 18 mg/dL [facility] Creatinine 0.69(L) 0.70 - 1.20 mg/dL [facility] Sodium 136 135 - 145 mmol/L [facility] Potassium 3.6 3.5 - 5.0 mmol/L [facility] Comment: Please note: ??Patients with WBC >100,000 may have falsely elevated Potassium levels. ??For accurate Potassium quantification in these patients send serum separator tube (gold top) for subsequent determinations. ??Contact the Clinical Chemistry Laboratory if there are any questions. Chloride 102 98 - 107 mmol/L [facility] Carbon Dioxide 23 22 - 31 mmol/L [facility] Anion Gap 11 5 - 15 mmol/L [facility] Calcium 8.6 8.5 - 10.5 mg/dL [facility] Est Glomerular Filtration Rate 95 >=60 mL/min/1. 73 m?? [facility] Comment: This patient's estimated GFR [...] Agency Comment Spec In Lab Mara Serrano NIPPLE MACHINE OPERATOR CHEMISTRY ORDERABL ES [facility] [place] [address] * (ABNORMAL) Basic Metabolic Panel (non-fasting) (05/21/2023 5:06 AM EDT) Glucose 87 65 - 199 mg/dL [facility] Comment:Diabetes: >=200 mg/d L plus symptoms Blood Urea Nitrogen 25(H) 8 - 18 mg/dL [facility] Creatinine 0.84 0.70 - 1.20 mg/dL [facility] Sodium 136 135 - 145 mmol/L [facility] Potassium 3.6 3.5 - 5.0 mmol/L [facility] Comment: Please note: ??Patients with WBC >100,000 may have falsely elevated Potassium levels. ??For accurate Potassium quantification in these patients send serum separator tube (gold top) for subsequent determinations. ??Contact the Clinical Chemistry Laboratory if there are any questions. Chloride 102 98 - 107 mmol/L [facility] Carbon Dioxide 26 22 - 31 mmol/L [facility] Anion Gap 8 5 - 15 mmol/L [facility] Calcium 8.9 8.5 - 10.5 mg/dL [facility] Est Glomerular Filtration Rate 76 >=60 mL/min/1. 73 m?? [facility] Comment: This patient's estimated GFR [...] Lab Mara Maggie LEMAN CHEMISTRY ORDERABL ES [facility] [place] [address] * Lavender Tube HOLD (05/20/2023 2:52 AM EDT) Lavender Hold Sample in lab. [facility] Blood Venous Draw / Unknown 05/20/2023 2:52 AM EDT 05/20/2023 3:04 AM EDT Mara Serrano APRN HEMATOLOGY ORDERAB LES [facility] [address] [place] [address] * (ABNORMAL) Basic Metabolic Panel (non-fasting) (05/20/2023 2:52 AM EDT) [facility] Glucose 152 65 - 199 mg/dL [facility] Comment:Diabetes: >=200 mg/d L plus symptoms Blood Urea Nitrogen 33(H) 8 - 18 mg/dL [facility] Creatinine 0.82 0.70 - 1.20 mg/dL [facility] Sodium 137 135 - 145 mmol/L [facility] Potassium 3.7 3.5 - 5.0 mmol/L [facility] Comment: Please note: ??Patients with WBC >100,000 may have falsely elevated Potassium levels. ??For accurate Potassium quantification in these patients send serum separator tube (gold top) for subsequent determinations. ??Contact the Clinical Chemistry Laboratory if there are any questions. Chloride 99 98 - 107 mmol/L [facility] Carbon Dioxide 22 22 - 31 mmol/L [facility] Anion Gap 16(H) 5 - 15 mmol/L [facility] Calcium 9.0 8.5 - 10.5 mg/dL [facility] Est Glomerular Filtration Rate 78 >=60 mL/min/1. 73 m?? [facility] Comment: This patient's estimated GFR [...] Agency Comment Spec In Lab Mara Thomasfield NIPPLE MACHINE OPERATOR CHEMISTRY ORDERABL ES Performing Organization Address [facility] de Phone Number [facility] [place] [address] * (ABNORMAL) Potassium (05/20/2023 2:52 AM EDT) Potassium 3.4(L) 3.5 - 5.0 mmol/L [facility] Comment: Please note: ??Patients with [...] APRN CHEMISTRY ORDERABL ES Performing Organization Address [facility] de Phone Number [facility] [place] [address] * XR Chest PA & Lateral (Generic) [...] who have questions please contact the health emergency care tech that requested your imaging first. ? Narrative [...] cardiomediastinal silhouette. Unchanged cholecystectomy clips. Procedure Note Chnya Johnson MD - 05/19/2023 EXAMINATION: XR CHEST [...] patients who have questions please contactthe health emergency care tech that requested your imaging first. Alirio Hudson MD IMG DX ORDERABLES * (ABNORMAL) Basic Metabolic Panel (non-fasting) (05/19/2023 5:49 AM EDT) Glucose 93 65 - 199 mg/dL [facility] Comment:Diabetes: >=200 mg/d L plus symptoms Blood Urea Nitrogen 45(H) 8 - 18 mg/dL [facility] Creatinine 1.02 0.70 - 1.20 mg/dL [facility] Sodium 138 135 - 145 mmol/L [facility] Potassium 3.9 3.5 - 5.0 mmol/L [facility] Comment: Please note: ??Patients with WBC >100,000 may have falsely elevated Potassium levels. ??For accurate Potassium quantification in these patients send serum separator tube (gold top) for subsequent determinations. ??Contact the Clinical Chemistry Laboratory if there are any questions. Chloride 102 98 - 107 mmol/L [facility] Carbon Dioxide 26 22 - 31 mmol/L [facility] Anion Gap 10 5 - 15 mmol/L [facility] Calcium 9.7 8.5 - 10.5 mg/dL [facility] Est Glomerular Filtration Rate 60 >=60 mL/min/1. 73 m?? [facility] Comment: This patient's estimated GFR [...] Agency Comment Spec In Lab Mara Serrano NIPPLE MACHINE OPERATOR CHEMISTRY ORDERABL ES [facility] [address] [place] [address] * IR Chest Tube Placement Right (05/18/2023 [...] EDT) Glucose 95 65 - 199 mg/dL [facility] Comment:Diabetes: >=200 mg/d L plus symptoms Blood Urea Nitrogen 71(H) 8 - 18 mg/dL [facility] Comment:result rechecked-JSJ Creatinine 1.64(H) 0.70 - 1.20 mg/dL [facility] Comment:result rechecked-JSJ Sodium 137 135 - 145 mmol/L [facility] Potassium 3.7 3.5 - 5.0 mmol/L [facility] Comment: Please note: ??Patients with WBC >100,000 may have falsely elevated Potassium levels. ??For accurate Potassium quantification in these patients send serum separator tube (gold top) for subsequent determinations. ??Contact the Clinical Chemistry Laboratory if there are any questions. Chloride 100 98 - 107 mmol/L [facility] Carbon Dioxide 24 22 - 31 mmol/L [facility] Anion Gap 13 5 - 15 mmol/L [facility] Calcium 9.7 8.5 - 10.5 mg/dL [facility] Est Glomerular Filtration Rate 34(L) >=60 mL/min/1. 73 m?? [facility] Comment: This patient's estimated GFR [...] Agency Comment Spec In Lab Mara Serrano NIPPLE MACHINE OPERATOR CHEMISTRY ORDERABL ES [facility] [address] * XR Chest PA & Lateral (Generic) [...] who have questions please contact the health emergency care tech that requested your imaging first. ? Narrative [...] patients who have questions please contactthe health emergency care tech that requested your imaging first. Alirio Hudson MD IMG DX ORDERABLES * (ABNORMAL) Comprehensive metabolic panel (non-fasting) (05/17/2023 4:35 AM EDT) Glucose 89 65 - 199 mg/dL [facility] Comment:Diabetes: >=200 mg/d L plus symptoms Blood Urea Nitrogen 97(H) 8 - 18 mg/dL [facility] Creatinine 2.97(H) 0.70 - 1.20 mg/dL [facility] Comment:result rechecked-JS Sodium 135 135 - 145 mmol/L [facility] Potassium 4.1 3.5 - 5.0 mmol/L [facility] Comment: Please note: ??Patients with WBC >100,000 may have falsely elevated Potassium levels. ??For accurate Potassium quantification in these patients send serum separator tube (gold top) for subsequent determinations. ??Contact the Clinical Chemistry Laboratory if there are any questions. Chloride 97(L) 98 - 107 mmol/L [facility] Carbon Dioxide 22 22 - 31 mmol/L [facility] Anion Gap 16(H) 5 - 15 mmol/L [facility] Calcium 9.6 8.5 - 10.5 mg/dL [facility] Protein, Total 6.5 6.1 - 8.0 g/dL [facility] Albumin 3.7 3.2 - 5.2 g/dL [facility] Aspartate Aminotransferase 58(H) 0 - 30 unit/L [facility] Alanine Aminotransferase 66(H) 0 - 30 unit/L [facility] Alkaline Phosphatase 86 35 - 105 unit/L [facility] Bilirubin, Total 0.6 0.2 - 1.3 mg/dL [facility] Est Glomerular Filtration Rate 17(L) >=60 mL/min/1. 73 m?? [facility] Comment: This patient's estimated GFR [...] S Performing Organization Address [facility] Co de Phone Number [facility] [place] [address] * Potassium (05/16/2023 11:15 PM EDT) Potassium 3.7 3.5 - 5.0 mmol/L [facility] Comment: Please note: ??Patients with [...] CHEMISTRY ORDERABLE S Performing Organization Address City/[facility]/ZIP Co de Phone Number [facility] [place] [address] * Magnesium (05/16/2023 5:22 PM EDT) Magnesium 0.96 0.69 - 1.07 mmol/L [facility] Blood 05/16/2023 5:22 PM EDT 05/16/2023 5:27 PM EDT Narrative Resulting Agency Comment Spec In Lab Alirio Hudson MD CHEMISTRY ORDERABLE S [facility] [place] [address] * (ABNORMAL) Basic Metabolic Panel (non-fasting) (05/16/2023 5:22 PM EDT) Glucose 106 65 - 199 mg/dL [facility] Comment:Diabetes: >=200 mg/d L plus symptoms Blood Urea Nitrogen 103(H) 8 - 18 mg/dL [facility] Creatinine 3.91(H) 0.70 - 1.20 mg/dL [facility] Comment:result rechecked-imm Sodium 132(L) 135 - 145 mmol/L [facility] Potassium 3.6 3.5 - 5.0 mmol/L [facility] Comment: Please note: ??Patients with WBC >100,000 may have falsely elevated Potassium levels. ??For accurate Potassium quantification in these patients send serum separator tube (gold top) for subsequent determinations. ??Contact the Clinical Chemistry Laboratory if there are any questions. Chloride 92(L) 98 - 107 mmol/L [facility] Carbon Dioxide 22 22 - 31 mmol/L [facility] Anion Gap 18(H) 5 - 15 mmol/L [facility] Calcium 9.7 8.5 - 10.5 mg/dL [facility] Est Glomerular Filtration Rate 12(L) >=60 mL/min/1. 73 m?? [facility] Comment: This patient's estimated GFR [...] Lab Alirio Hudson MD CHEMISTRY ORDERABLE S [facility] [place] [address] * (ABNORMAL) Potassium (05/16/2023 11:43 AM EDT) Potassium 3.3(L) 3.5 - 5.0 mmol/L [facility] Comment: Please note: ??Patients with [...] S Performing Organization Address [facility]/ZIP Co de Phone Number [facility] [place] [address] * (ABNORMAL) Ferritin (05/16/2023 4:41 AM EDT) Ferritin 1,813(H) 30 - 400 ng/mL [facility] Comment: Pediatric reference ranges not [place] [facility] [place] interpret with caution. Reference ranges for females greater than 50 years of age approach values for men, i.e., 30-400 ng/mL. Blood 05/16/2023 4:41 AM EDT 05/16/2023 4:54 AM EDT Narrative Resulting Agency Comment Spec In Lab Kristopher Ayoub MD CHEMISTRY ORDERABLES [facility] [place] [address] * (ABNORMAL) PTH (05/16/2023 4:41 AM EDT) Parathyroid Hormone 120(H) 15 - 65 pg/mL [facility] Blood 05/16/2023 4:41 AM EDT 05/16/2023 4:54 AM EDT Narrative Resulting Agency Comment Spec In Lab Kristopher Ayoub MD CHEMISTRY ORDERABLES [facility] [place] [address] * Vitamin D, 25-Hydroxy (05/16/2023 4:41 AM EDT) Vitamin D Total 25 OH 33 21 - 100 ng/mL [facility] Vit D Interp Sufficient [facility] Blood 05/16/2023 4:41 AM EDT 05/16/2023 4:54 AM EDT Narrative Resulting Agency Comment Spec In Lab Kristopher Ayoub MD CHEMISTRY ORDERABLES Performing Organization Address City/[facility]/ZIP Co de Phone Number [facility] [place] [address] * (ABNORMAL) Blood Gas Venous ([facility]) (05/16/2023 4:22 AM EDT) pH, Venous 7.41 7.32 - 7.42 [facility] PCO2, Venous 32(L) 41 - 51 mmHg [facility] PO2, Venous 73(H) 25 - 40 mmHg [facility] Bicarbonate, Venous 19.6 mmol/L [facility] Base Excess, Venous -5.1 mmol/L [facility] Hgb Blood Gas 9.7(L) 11.7 - 15.5 g/dL [facility] Oxyhemoglobin, Venous 92.8 % [facility] Carboxyhemoglob in, Venous 0.1 % [facility] Comment: Nonsmokers: 0.5-1.5% COHB Smokers: Variable, but usually less than 10% Toxic: 20-30% COHB Lethal: Greater than 60% COHB Methemoglobin, Venous 0.3 <=1.5 % [facility] Na Whole Blood 130(L) 135 - 145 mmol/L [facility] K Whole Blood 3.7 3.5 - 5.0 mmol/L [facility] Comment: Please note: Patients with WBC >100,000 may have falsely elevated Potassium levels. Contact the Clinical Chemistry Laboratory if there are any questions. ICa Whole Blood 1.15 1.15 - 1.33 mmol/L [facility] Comment: Note: ??Total bilirubin higher than 20 mg/dL may lead to falsely low ionized calcium. CL Whole Blood 95(L) 98 - 107 mmol/L [facility] Gluc Whole Bld 82 65 - 199 mg/dL [facility] Comment:Diabetes: >=200 mg/d L plus symptoms Lactate WB 1.1 0.5 - 2.2 mmol/L [facility] Blood Gas Source Venous [facility] Blood Venous Draw / Unknown 05/16/2023 4:22 AM EDT 05/16/2023 4:31 AM EDT Narrative Resulting Agency Comment Spec In Lab Bonita TOBAR CHEMISTRY ORDERABLES Performing Organization Address City/State/[facility] Co de Phone Number [facility] [place] [address] * (ABNORMAL) Differential, Automated (05/16/2023 4:20 AM EDT) Neutrophil % 84.1 % [facility] Neutrophil Absolute 6.22(H) 1.70 - 6.10 x10(3)/mc L [facility] Lymph % 5.8 % [facility] Lymphocytes Abs 0.4(L) 0.9 - 3.2 x10(3)/mc L [facility] Monocyte % 8.8 % [facility] Monocyte Abs 0.6 0.3 - 0.9 x10(3)/mc L [facility] Eos % 0.4 % [facility] Eosinophils Abs 0.0 0.0 - 0.4 x10(3)/mc L [facility] Basophil % 0.0 % [facility] Baso Absolute 0.0 0.0 - 0.1 x10(3)/mc L [facility] Immature Gran % 0.90 % [facility] Comment: Immature granulocytes(IG's)percentage and absolute count will include metamyelocytes, myelocytes, and promyelocytes. Blood smears from CBCs yielding IG's will be scanned manually for concordance. If this scan disagrees with the automated IG or if promyelocytes are noted, a manual differential will be performed. Immature Gran Absolute 0.07(H) 0.00 - 0.04 x10(3)/mc L [facility] Blood 05/16/2023 4:20 AM EDT 05/16/2023 4:29 AM EDT Narrative Resulting Agency Comment Spec In Lab James Agustin MD HEMATOLOGY ORDER JODIE [facility] [place] [address] * (ABNORMAL) Hemogram (05/16/2023 4:20 AM EDT) White Blood Cell 7.4 4.0 - 9.5 x10(3)/mc L [facility] Red Blood Cell 2.40(L) 4.00 - 5.21 x10(6)/mc L [facility] Hemoglobin 7.8(L) 11.7 - 15.5 g/dL [facility] Hematocrit 22.5(L) 35.7 - 45.8 % [facility] Mean Cell Volume 93.8 82.6 - 94.4 fL [facility] Mean Cell Hemoglobin 32.5(H) 27.1 - 32.0 pg [facility] Mean Cell Hemoglobin Concentration 34.7 31.7 - 35.0 g/dL [facility] Platelet 120(L) 145 - 357 x10(3)/mc L [facility] RDW Standard Deviation 42.9 37.0 - 46.0 fL [facility] RDW coefficient of variation 12.9 11.5 - 14.1 % [facility] Mean Platelet Volume 11.3 7.6 - 12.9 fL [facility] NRBC% auto 0.7 % [facility] NRBC Absolute 0.050(H) 0.000 - 0.000 x10(3)/mc L [facility] Blood 05/16/2023 4:20 AM EDT 05/16/2023 4:29 AM EDT Narrative Resulting Agency Comment Spec In Lab James Agustin MD HEMATOLOGY ORDER JODIE [facility] [place] [address] * (ABNORMAL) Basic Metabolic Panel (non-fasting) (05/16/2023 4:20 AM EDT) Glucose 89 65 - 199 mg/dL [facility] Comment:Diabetes: >=200 mg/d L plus symptoms Blood Urea Nitrogen 108(H) 8 - 18 mg/dL [facility] Creatinine 4.74(H) 0.70 - 1.20 mg/dL [facility] Comment:result rechecked-OLIVA Sodium 132(L) 135 - 145 mmol/L [facility] Potassium 3.9 3.5 - 5.0 mmol/L [facility] Comment: Please note: ??Patients with WBC >100,000 may have falsely elevated Potassium levels. ??For accurate Potassium quantification in these patients send serum separator tube (gold top) for subsequent determinations. ??Contact the Clinical Chemistry Laboratory if there are any questions. Chloride 95(L) 98 - 107 mmol/L [facility] Carbon Dioxide 18(L) 22 - 31 mmol/L [facility] Anion Gap 19(H) 5 - 15 mmol/L [facility] Calcium 9.2 8.5 - 10.5 mg/dL [facility] Est Glomerular Filtration Rate 10(L) >=60 mL/min/1. 73 m?? [facility] Comment: This patient's estimated GFR [...] Lab Alirio Hudson MD CHEMISTRY ORDERABLE S [facility] [place] [address] * (ABNORMAL) Iron and TIBC (05/16/2023 4:20 AM EDT) Iron 31 30 - 150 mcg/dL [facility] TIBC 259 250 - 450 mcg/dL [facility] Iron Saturation 12(L) 20 - 50 % [facility] Blood 05/16/2023 4:20 AM EDT 05/16/2023 4:29 AM EDT Narrative Resulting Agency Comment Spec In Lab Kristopher Ayoub MD CHEMISTRY ORDERABLES Performing Organization Address City/[facility]/ZIP Co de Phone Number [facility] [place] [address] * (ABNORMAL) Basic Metabolic Panel (non-fasting) (05/15/2023 12:50 AM EDT) Glucose 101 65 - 199 mg/dL [facility] Comment:Diabetes: >=200 mg/d L plus symptoms Blood Urea Nitrogen 109(H) 8 - 18 mg/dL [facility] Creatinine 5.62(H) 0.70 - 1.20 mg/dL [facility] Comment:result rechecked-KS Sodium 131(L) 135 - 145 mmol/L [facility] Comment:result rechecked-KS Potassium 3.7 3.5 - 5.0 mmol/L [facility] Comment: result rechecked-KS Please note: ??Patients with WBC >100,000 may have falsely elevated Potassium levels. ??For accurate Potassium quantification in these patients send serum separator tube (gold top) for subsequent determinations. ??Contact the Clinical Chemistry Laboratory if there are any questions. Chloride 92(L) 98 - 107 mmol/L [facility] Comment:result rechecked-KS Carbon Dioxide 18(L) 22 - 31 mmol/L [facility] Comment:result rechecked-KS Anion Gap 21(H) 5 - 15 mmol/L [facility] Calcium 8.9 8.5 - 10.5 mg/dL [facility] Est Glomerular Filtration Rate 8(L) >=60 mL/min/1. 73 m?? [facility] Comment: This patient's estimated GFR [...] Lab Alirio Hudson MD CHEMISTRY ORDERABLE S [facility] [place] [address] * (ABNORMAL) Hemogram (05/15/2023 12:50 AM EDT) White Blood Cell 9.1 4.0 - 9.5 x10(3)/mc L [facility] Red Blood Cell 2.19(L) 4.00 - 5.21 x10(6)/mc L [facility] Hemoglobin 7.2(L) 11.7 - 15.5 g/dL [facility] Hematocrit 20.6(L) 35.7 - 45.8 % [facility] Mean Cell Volume 94.1 82.6 - 94.4 fL [facility] Mean Cell Hemoglobin 32.9(H) 27.1 - 32.0 pg [facility] Mean Cell Hemoglobin Concentration 35.0 31.7 - 35.0 g/dL [facility] Platelet 109(L) 145 - 357 x10(3)/mc L [facility] RDW Standard Deviation 43.6 37.0 - 46.0 fL [facility] RDW coefficient of variation 12.9 11.5 - 14.1 % [facility] Mean Platelet Volume 10.4 7.6 - 12.9 fL [facility] NRBC% auto 2.1 % [facility] NRBC Absolute 0.190(H) 0.000 - 0.000 x10(3)/mc L [facility] Blood 05/15/2023 12:5 0 AM EDT 05/15/2023 12:52 AM EDT Narrative Resulting Agency Comment Spec In Lab Alirio Hudson MD HEMATOLOGY ORDERABL ES [facility] [place] [address] * (ABNORMAL) BLOOD GAS 2 VENOUS (05/15/2023 12:49 AM EDT) pH, Venous 7.33 7.32 - 7.42 [facility] PCO2, Venous 37(L) 41 - 51 mmHg [facility] PO2, Venous 34 25 - 40 mmHg [facility] Bicarbonate, Venous 19.1 mmol/L [facility] Base Excess, Venous -6.8 mmol/L [facility] Hgb Blood Gas 10.8(L) 11.7 - 15.5 g/dL [facility] Oxyhemoglobin, Venous 58.1 % [facility] Carboxyhemoglob in, Venous 0.3 % [facility] Comment: Nonsmokers: 0.5-1.5% COHB Smokers: Variable, but usually less than 10% Toxic: 20-30% COHB Lethal: Greater than 60% COHB Methemoglobin, Venous 0.6 <=1.5 % [facility] Na Whole Blood 136 135 - 145 mmol/L [facility] K Whole Blood 3.7 3.5 - 5.0 mmol/L [facility] Comment: Please note: Patients with WBC >100,000 may have falsely elevated Potassium levels. Contact the Clinical Chemistry Laboratory if there are any questions. ICa Whole Blood 1.12(L) 1.15 - 1.33 mmol/L [facility] Comment: Note: ??Total bilirubin higher than 20 mg/dL may lead to falsely low ionized calcium. CL Whole Blood 95(L) 98 - 107 mmol/L [facility] Gluc Whole Bld 101 65 - 199 mg/dL [facility] Comment:Diabetes: >=200 mg/d L plus symptoms Lactate WB 1.3 0.5 - 2.2 mmol/L [facility] Flow, Mike 1.0 LPM [facility] Blood Gas Source Venous [facility] Blood 05/15/2023 12:4 9 AM EDT 05/15/2023 12:49 AM EDT Alirio Hudson MD POINT OF CARE TEST ORDERABLES [facility] [place] [address] * US Retroperitoneal Complete (05/14/2023 3:53 PM [...] who have questions, please contact the health emergency care tech that requested your imaging first. ? Hayden Robledo, Staff Physician Electronically Signed Final Report ?? 05/14/2023 04:39 pm Narrative 05/14/2023 4:39 PM EDT Renal ? (Signed Final 05/14/2023 04:39 pm) PATIENT INFO: ID #: ? [id number] ?: ??55 (67 yrs)(F) Name: ? PURNIMA THACKER ?Visit Date: 05/14/2023 03:44 pm PERFORMED BY: Attending: ?Meena CULP, Hayden Stafford Resident: ? Nell CULP, Anand August Performed By: ? Consuelo Tello RDMS Referred By: ?ALIRIO HUDSON Location: ? [place] SERVICE(S) PROVIDED: URETRO - Retroperitoneal Complete - [id number] ? [id number] INDICATIONS: [facility] COMPARISON: CT: Abdomen/Pelvis 05/11/23 RIGHT [...] 05/14/2023 04:39 pm) PATIENT INFO: ID #: [id number] : 55 (67 yrs)(F) Name: PURNIMA THACKER Visit Date: 05/14/2023 03:44 pm PERFORMED BY: Attending: Hayden Robledo MD Resident: Anand Camejo MD Performed By: Consuelo Tello RDMS Referred By: ALIRIO HUDSON Location: [place] SERVICE(S) PROVIDED: URETRO - Retroperitoneal Complete - [id number] INDICATIONS: [facility] COMPARISON: CT: Abdomen/Pelvis 05/11/23 RIGHT [...] who have questions, please contact the health emergency care tech that requested your imaging first. Hayden Robledo, Staff Physician Electronically Signed Final Report 05/14/2023 04:39 pm Alirio Hudson MD IMG US GEN ORDERABL ES * CK (05/14/2023 3:17 PM EDT) Creatine Kinase 123 0 - 160 unit/L [facility] Blood 05/14/2023 3:17 PM EDT 05/14/2023 3:31 PM EDT Narrative Resulting Agency Comment Spec In Lab Alirio Hudson MD CHEMISTRY ORDERABLE S Performing Organization Address City/[facility]/ZIP Co de Phone Number [facility] [place] [address] * (ABNORMAL) Uric acid (05/14/2023 3:17 PM EDT) Uric Acid 14.9(H) 2.5 - 6.5 mg/dL [facility] Blood 05/14/2023 3:17 PM EDT 05/14/2023 3:31 PM EDT Narrative Resulting Agency Comment Spec In Lab Alirio Hudson MD CHEMISTRY ORDERABLE S Performing Organization Address [facility] Co de Phone Number [facility] [place] [address] * (ABNORMAL) Osmolality (05/14/2023 3:17 PM EDT) Pathologist [facility] [place] Osmolality 311(H) 275 - 295 mOsm/kg [facility] Blood 05/14/2023 3:17 PM EDT 05/14/2023 3:31 PM EDT Narrative Resulting Agency Comment Spec In Lab Alirio Hudson MD CHEMISTRY ORDERABLE S Performing Organization Address [facility] Co de Phone Number [facility] [place] [address] * (ABNORMAL) Differential, Automated (05/14/2023 1:10 AM EDT) Neutrophil % 87.2 % [facility] Neutrophil Absolute 9.74(H) 1.70 - 6.10 x10(3)/mc L [facility] Lymph % 3.9 % [facility] Lymphocytes Abs 0.4(L) 0.9 - 3.2 x10(3)/mc L [facility] Monocyte % 7.9 % [facility] Monocyte Abs 0.9 0.3 - 0.9 x10(3)/mc L [facility] Eos % 0.0 % [facility] Eosinophils Abs 0.0 0.0 - 0.4 x10(3)/mc L [facility] Basophil % 0.1 % [facility] Baso Absolute 0.0 0.0 - 0.1 x10(3)/mc L [facility] Immature Gran % 0.90 % [facility] Comment: Immature granulocytes(IG's)percentage and absolute count will include metamyelocytes, myelocytes, and promyelocytes. Blood smears from CBCs yielding IG's will be scanned manually for concordance. If this scan disagrees with the automated IG or if promyelocytes are noted, a manual differential will be performed. Immature Gran Absolute 0.10(H) 0.00 - 0.04 x10(3)/ L [facility] Blood 05/14/2023 1:10 AM EDT 05/14/2023 1:24 AM EDT Narrative Resulting Agency Comment Spec In Lab Bonita TOBAR HEMATOLOGY ORDERABLE S [facility] [place] [address] * (ABNORMAL) Hemogram (05/14/2023 1:10 AM EDT) White Blood Cell 11.2(H) 4.0 - 9.5 x10(3)/mc L [facility] Red Blood Cell 2.19(L) 4.00 - 5.21 x10(6)/mc L [facility] Hemoglobin 7.2(L) 11.7 - 15.5 g/dL [facility] Hematocrit 20.3(L) 35.7 - 45.8 % [facility] Mean Cell Volume 92.7 82.6 - 94.4 fL [facility] Mean Cell Hemoglobin 32.9(H) 27.1 - 32.0 pg [facility] Mean Cell Hemoglobin Concentration 35.5(H) 31.7 - 35.0 g/dL [facility] Platelet 112(L) 145 - 357 x10(3)/mc L [facility] RDW Standard Deviation 41.4 37.0 - 46.0 fL [facility] RDW coefficient of variation 12.5 11.5 - 14.1 % [facility] Mean Platelet Volume 10.4 7.6 - 12.9 fL [facility] NRBC% auto 1.5 % [facility] NRBC Absolute 0.170(H) 0.000 - 0.000 x10(3)/mc L [facility] Blood 05/14/2023 1:10 AM EDT 05/14/2023 1:24 AM EDT Narrative Resulting Agency Comment Spec In Lab Bonita TOBAR HEMATOLOGY ORDERABLE S [facility] [place] [address] * (ABNORMAL) Comprehensive metabolic panel (non-fasting) (05/14/2023 1:10 AM EDT) Glucose 120 65 - 199 mg/dL [facility] Comment:Diabetes: >=200 mg/d L plus symptoms Blood Urea Nitrogen 98(H) 8 - 18 mg/dL [facility] Creatinine 4.80(H) 0.70 - 1.20 mg/dL [facility] Comment:result rechecked-ssc Sodium 132(L) 135 - 145 mmol/L [facility] Potassium 4.1 3.5 - 5.0 mmol/L [facility] Comment: Please note: ??Patients with WBC >100,000 may have falsely elevated Potassium levels. ??For accurate Potassium quantification in these patients send serum separator tube (gold top) for subsequent determinations. ??Contact the Clinical Chemistry Laboratory if there are any questions. Chloride 94(L) 98 - 107 mmol/L [facility] Carbon Dioxide 18(L) 22 - 31 mmol/L [facility] Anion Gap 20(H) 5 - 15 mmol/L [facility] Calcium 8.5 8.5 - 10.5 mg/dL [facility] Protein, Total 5.8(L) 6.1 - 8.0 g/dL [facility] Albumin 3.6 3.2 - 5.2 g/dL [facility] Aspartate Aminotransferase 319(H) 0 - 30 unit/L [facility] Alanine Aminotransferase 437(H) 0 - 30 unit/L [facility] Alkaline Phosphatase 86 35 - 105 unit/L [facility] Bilirubin, Total 0.4 0.2 - 1.3 mg/dL [facility] Est Glomerular Filtration Rate 9(L) >=60 mL/min/1. 73 m?? [facility] Comment: This patient's estimated GFR [...] S Performing Organization Address [facility] Co de Phone Number [facility] [place] [address] * APTT (05/13/2023 10:15 AM EDT) Partial Thromboplastin Time 27 25 - 37 sec [facility] Comment: The PTT is NOT [...] ES Performing Organization Address [facility] Co de Phone Number [facility] [place] [address] * (ABNORMAL) Prothrombin Time (05/13/2023 10:15 AM EDT) Prothrombin Time 14.6(H) 9.4 - 12.5 sec [facility] International Normalization Ratio 1.3 [facility] Comment: An INR <2.0 indicates [...] HEMATOLOGY ORDERABL ES Performing Organization Address City/[facility]/ZIP Co de Phone Number [facility] [place] [address] * EKG 12 Lead (05/13/2023 9:22 AM EDT) Ventricular rate 92 BPM MUSE SYSTEM Atrial Rate 92 BPM MUSE SYSTEM P-R Interval 140 ms MUSE SYSTEM QRS Duration 104 ms MUSE SYSTEM Q-T Interval 384 ms MUSE SYSTEM QTC Calculated (Bezet) 474 ms MUSE SYSTEM Calculated P Watkins 33 degrees MUSE SYSTEM Calculated R Watkins 41 degrees MUSE SYSTEM Calculated T Watkins -35 degrees MUSE SYSTEM INTERPRETATION Sinus rhythm with frequent Premature ventricular complexes Septal infarct , age undetermined ST & T wave abnormality, consider lateral ischemia Abnormal ECG When compared with ECG of 12-MAY-2023 10:10, Premature ventricular complexes are now Present I personally reviewed the tracing and edited the fellows interpretation Confirmed by fellow MD Welsh Hanyuan ([id number]) on 05/13/2023 3:25:30 PM Confirmed by Maxx Best ([id number]) on 05/13/2023 8:30:56 PM MUSE SYSTEM 05/13/2023 9:22 AM EDT 05/13/2023 8:30 PM EDT Alirio Hudson MD ECG ORDERABLES M[facility] SYSTEM * (ABNORMAL) Differential, Automated (05/13/2023 1:15 AM EDT) Neutrophil % 88.1 % [facility] Neutrophil Absolute 7.62(H) 1.70 - 6.10 x10(3)/mc L [facility] Lymph % 3.1 % [facility] Lymphocytes Abs 0.3(L) 0.9 - 3.2 x10(3)/mc L [facility] Monocyte % 7.9 % [facility] Monocyte Abs 0.7 0.3 - 0.9 x10(3)/ L [facility] Eos % 0.0 % [facility] Eosinophils Abs 0.0 0.0 - 0.4 x10(3)/ L [facility] Basophil % 0.1 % [facility] Baso Absolute 0.0 0.0 - 0.1 x10(3)/ L [facility] Immature Gran % 0.80 % [facility] Comment: Immature granulocytes(IG's)percentage and absolute count will include metamyelocytes, myelocytes, and promyelocytes. Blood smears from CBCs yielding IG's will be scanned manually for concordance. If this scan disagrees with the automated IG or if promyelocytes are noted, a manual differential will be performed. Immature Gran Absolute 0.07(H) 0.00 - 0.04 x10(3)/ L [facility] Blood 05/13/2023 1:15 AM EDT 05/13/2023 1:29 AM EDT Narrative Resulting Agency Comment Spec In Lab Lorri TOBAR HEMATOLOGY ORDERABLE S [facility] [place] [address] * (ABNORMAL) Hemogram (05/13/2023 1:15 AM EDT) White Blood Cell 8.6 4.0 - 9.5 x10(3)/ L [facility] Red Blood Cell 2.37(L) 4.00 - 5.21 x10(6)/ L [facility] Hemoglobin 7.8(L) 11.7 - 15.5 g/dL [facility] Hematocrit 22.2(L) 35.7 - 45.8 % [facility] Mean Cell Volume 93.7 82.6 - 94.4 fL [facility] Mean Cell Hemoglobin 32.9(H) 27.1 - 32.0 pg [facility] Mean Cell Hemoglobin Concentration 35.1(H) 31.7 - 35.0 g/dL [facility] Platelet 130(L) 145 - 357 x10(3)/mc L [facility] RDW Standard Deviation 41.7 37.0 - 46.0 fL [facility] RDW coefficient of variation 12.5 11.5 - 14.1 % [facility] Mean Platelet Volume 10.2 7.6 - 12.9 fL [facility] NRBC% auto 0.5 % [facility] NRBC Absolute 0.040(H) 0.000 - 0.000 x10(3)/mc L [facility] Blood 05/13/2023 1:15 AM EDT 05/13/2023 1:29 AM EDT Narrative Resulting Agency Comment Spec In Lab Lorri TOBAR HEMATOLOGY ORDERABLE S Performing Organization Address [facility] Co de Phone Number [facility] [place] [address] * (ABNORMAL) Hepatic Function Panel (05/13/2023 1:15 AM EDT) Protein, Total 5.5(L) 6.1 - 8.0 g/dL [facility] Albumin 3.0(L) 3.2 - 5.2 g/dL [facility] Aspartate Aminotransferase 792(H) 0 - 30 unit/L [facility] Alanine Aminotransferase 903(H) 0 - 30 unit/L [facility] Alkaline Phosphatase 85 35 - 105 unit/L [facility] Bilirubin, Total 0.5 0.2 - 1.3 mg/dL [facility] Bilirubin, Direct 0.3 0.0 - 0.3 mg/dL [facility] Blood 05/13/2023 1:15 AM EDT 05/13/2023 1:29 AM EDT Narrative Resulting Agency Comment Spec In Lab Alirio Hudson MD CHEMISTRY ORDERABLE S Performing Organization Address City/[facility]/ZIP Co de Phone Number [facility] [place] [address] * (ABNORMAL) Basic Metabolic Panel (non-fasting) (05/13/2023 1:15 AM EDT) Glucose 107 65 - 199 mg/dL [facility] Comment:Diabetes: >=200 mg/d L plus symptoms Blood Urea Nitrogen 82(H) 8 - 18 mg/dL [facility] Creatinine 3.15(H) 0.70 - 1.20 mg/dL [facility] Comment:result rechecked-JSJ Sodium 132(L) 135 - 145 mmol/L [facility] Potassium 3.8 3.5 - 5.0 mmol/L [facility] Comment: Please note: ??Patients with WBC >100,000 may have falsely elevated Potassium levels. ??For accurate Potassium quantification in these patients send serum separator tube (gold top) for subsequent determinations. ??Contact the Clinical Chemistry Laboratory if there are any questions. Chloride 95(L) 98 - 107 mmol/L [facility] Carbon Dioxide 20(L) 22 - 31 mmol/L [facility] Anion Gap 17(H) 5 - 15 mmol/L [facility] Calcium 8.3(L) 8.5 - 10.5 mg/dL [facility] Est Glomerular Filtration Rate 16(L) >=60 mL/min/1. 73 m?? [facility] Comment: This patient's estimated GFR [...] Lab Alirio Hudson MD CHEMISTRY ORDERABLE S [facility] [place] [address] * (ABNORMAL) BLOOD GAS 2 ARTERIAL (05/12/2023 3:57 PM EDT) pH, Arterial 7.39 7.35 - 7.45 [facility] PCO2, Arterial 33(L) 35 - 45 mmHg [facility] PO2, Arterial 101 85 - 104 mmHg [facility] Bicarbonate, Arterial 19.5(L) 20.0 - 26.0 mmol/L [facility] Base Excess, Arterial -5.5(L) -3.0 - 3.0 mmol/L [facility] Hgb Blood Gas 9.8(L) 11.7 - 15.5 g/dL [facility] Oxyhemoglobin, Arterial 95.2 94.0 - 97.0 % [facility] Carboxyhemoglob in, Arterial 0.2 % [facility] Comment: Nonsmokers: 0.5-1.5% COHB Smokers: Variable, but usually less than 10% Toxic: 20-30% COHB Lethal: Greater than 60% COHB Methemoglobin, Arterial 0.8 <=1.5 % [facility] Na Whole Blood 129(L) 135 - 145 mmol/L [facility] K Whole Blood 3.8 3.5 - 5.0 mmol/L [facility] Comment: Please note: Patients with WBC >100,000 may have falsely elevated Potassium levels. Contact the Clinical Chemistry Laboratory if there are any questions. ICa Whole Blood 1.05(L) 1.15 - 1.33 mmol/L [facility] Comment: Note: ??Total bilirubin higher than 20 mg/dL may lead to falsely low ionized calcium. CL Whole Blood 96(L) 98 - 107 mmol/L [facility] Gluc Whole Bld 178 65 - 199 mg/dL [facility] Comment:Diabetes: >=200 mg/d L plus symptoms. Lactate WB 1.5 0.5 - 2.2 mmol/L [facility] FIO2 Art 40 % [facility] PF Ratio Art 252 [facility] Blood 05/12/2023 3:57 PM EDT 05/12/2023 3:57 PM EDT Alirio Hudson MD POINT OF CARE TEST ORDERABLES [facility] [place] [address] * (ABNORMAL) Coox2 (05/12/2023 2:25 PM EDT) pO2, Coox 37 mmHg [facility] Hgb Blood Gas 9.5(L) 11.7 - 15.5 g/dL [facility] Oxyhemoglobin, Coox 59.9 % [facility] Carboxyhemoglo bin, Coox 0.3 % [facility] Comment: Nonsmokers: 0.5-1.5% COHB Smokers: Variable, but usually less than 10% Toxic: 20-30% COHB Lethal: Greater than 60% COHB Methemoglobin, Coox 0.7 <=1.5 % [facility] Source Coox Mixed Venous [facility] Blood 05/12/2023 2:25 PM EDT 05/12/2023 2:25 PM EDT Alirio Hudson MD POINT OF CARE TEST ORDERABLES Performing Organization Address City/[facility] Co de Phone Number [facility] [place] [address] * (ABNORMAL) BLOOD GAS 2 ARTERIAL (05/12/2023 2:23 PM EDT) pH, Arterial 7.37 7.35 - 7.45 [facility] PCO2, Arterial 36 35 - 45 mmHg [facility] PO2, Arterial 102 85 - 104 mmHg [facility] Bicarbonate, Arterial 20.4 20.0 - 26.0 mmol/L [facility] Base Excess, Arterial -4.8(L) -3.0 - 3.0 mmol/L [facility] Hgb Blood Gas 12.7 11.7 - 15.5 g/dL [facility] Oxyhemoglobin, Arterial 95.4 94.0 - 97.0 % [facility] Carboxyhemoglob in, Arterial 0.3 % [facility] Comment: Nonsmokers: 0.5-1.5% COHB Smokers: Variable, but usually less than 10% Toxic: 20-30% COHB Lethal: Greater than 60% COHB Methemoglobin, Arterial 0.7 <=1.5 % [facility] Na Whole Blood 129(L) 135 - 145 mmol/L [facility] K Whole Blood 3.7 3.5 - 5.0 mmol/L [facility] Comment: Please note: Patients with WBC >100,000 may have falsely elevated Potassium levels. Contact the Clinical Chemistry Laboratory if there are any questions. ICa Whole Blood 1.05(L) 1.15 - 1.33 mmol/L [facility] Comment: Note: ??Total bilirubin higher than 20 mg/dL may lead to falsely low ionized calcium. CL Whole Blood 95(L) 98 - 107 mmol/L [facility] Gluc Whole Bld 168 65 - 199 mg/dL [facility] Comment:Diabetes: >=200 mg/d L plus symptoms. Lactate WB 1.8 0.5 - 2.2 mmol/L [facility] FIO2 Art 40 % [facility] PF Ratio Art 255 [facility] Blood 05/12/2023 2:23 PM EDT 05/12/2023 2:23 PM EDT Alirio Hudson MD POINT OF CARE TEST ORDERABLES Performing Organization Address City/State/[facility] Co de Phone Number [facility] [place] [address] * (ABNORMAL) Troponin (05/12/2023 2:05 PM EDT) Troponin-T, High Sensitivity 1,022(H) <=14 ng/L [facility] Comment: This patient's troponin T [...] in the [facility] Laboratory Test Catalog Troponin - [facility] Laboratory Test Catalog Reference: Fourth [place] Definition of Myocardial Infarction. Journal of the [place] [employer] 2018;72:5202-3127 Blood 05/12/2023 2:05 PM EDT 05/12/2023 2:14 PM EDT Narrative Resulting Agency Comment Spec In Lab Alirio Hudson MD CHEMISTRY ORDERABLE S Performing Organization Address [facility] Co de Phone Number [facility] [place] [address] * (ABNORMAL) Hemoglobin (05/12/2023 2:05 PM EDT) Hemoglobin 8.5(L) 11.7 - 15.5 g/dL [facility] Blood 05/12/2023 2:05 PM EDT 05/12/2023 2:14 PM EDT Narrative Resulting Agency Comment Spec In Lab Alirio Hudson MD HEMATOLOGY ORDERABL ES Performing Organization Address [facility] Co de Phone Number [facility] [place] [address] * Potassium (05/12/2023 2:05 PM EDT) Potassium 3.9 3.5 - 5.0 mmol/L [facility] Comment: Please note: ??Patients with WBC >100,000 may have falsely elevated Potassium levels. ??For accurate Potassium quantification in these patients send serum separator tube (gold top) for subsequent determinations. ??Contact the Clinical Chemistry Laboratory if there are any questions. Blood 05/12/2023 2:05 PM EDT 05/12/2023 2:14 PM EDT Narrative Resulting Agency Comment Spec In Lab Alirio Hudson MD CHEMISTRY ORDERABLE S [facility] [place] [address] * (ABNORMAL) BLOOD GAS 2 ARTERIAL (05/12/2023 11:05 AM EDT) pH, Arterial 7.34(L) 7.35 - 7.45 [facility] PCO2, Arterial 42 35 - 45 mmHg [facility] PO2, Arterial 73(L) 85 - 104 mmHg [facility] Bicarbonate, Arterial 22.1 20.0 - 26.0 mmol/L [facility] Base Excess, Arterial -3.6(L) -3.0 - 3.0 mmol/L [facility] Hgb Blood Gas 9.3(L) 11.7 - 15.5 g/dL [facility] Oxyhemoglobin, Arterial 89.3(L) 94.0 - 97.0 % [facility] Carboxyhemoglob in, Arterial 0.2 % [facility] Comment: Nonsmokers: 0.5-1.5% COHB Smokers: Variable, but usually less than 10% Toxic: 20-30% COHB Lethal: Greater than 60% COHB Methemoglobin, Arterial 0.9 <=1.5 % [facility] Na Whole Blood 131(L) 135 - 145 mmol/L [facility] K Whole Blood 3.8 3.5 - 5.0 mmol/L [facility] Comment: Please note: Patients with WBC >100,000 may have falsely elevated Potassium levels. Contact the Clinical Chemistry Laboratory if there are any questions. ICa Whole Blood 1.04(L) 1.15 - 1.33 mmol/L [facility] Comment: Note: ??Total bilirubin higher than 20 mg/dL may lead to falsely low ionized calcium. CL Whole Blood 96(L) 98 - 107 mmol/L [facility] Gluc Whole Bld 152 65 - 199 mg/dL [facility] Comment:Diabetes: >=200 mg/d L plus symptoms. Lactate WB 2.8(H) 0.5 - 2.2 mmol/L [facility] FIO2 Art 40 % [facility] PF Ratio Art 182 [facility] Blood 05/12/2023 11:0 5 AM EDT 05/12/2023 11:05 AM EDT Alirio Hudson MD POINT OF CARE TEST ORDERABLES [facility] [place] [address] * (ABNORMAL) BLOOD GAS 2 ARTERIAL (05/12/2023 10:14 AM EDT) pH, Arterial 7.18(Criti gabrielle) 7.35 - 7.45 [facility] Comment:Noted by stringed instrument repairer. PCO2, Arterial 45 35 - 45 mmHg [facility] PO2, Arterial 186(H) 85 - 104 mmHg [facility] Bicarbonate, Arterial 16.2(L) 20.0 - 26.0 mmol/L [facility] Base Excess, Arterial -12.2(L) -3.0 - 3.0 mmol/L [facility] Hgb Blood Gas 10.0(L) 11.7 - 15.5 g/dL [facility] Oxyhemoglobin, Arterial 97.0 94.0 - 97.0 % [facility] Carboxyhemoglob in, Arterial 0.2 % [facility] Comment: Nonsmokers: 0.5-1.5% COHB Smokers: Variable, but usually less than 10% Toxic: 20-30% COHB Lethal: Greater than 60% COHB Methemoglobin, Arterial 0.9 <=1.5 % [facility] Na Whole Blood 129(L) 135 - 145 mmol/L [facility] K Whole Blood 3.6 3.5 - 5.0 mmol/L [facility] Comment: Please note: Patients with WBC >100,000 may have falsely elevated Potassium levels. Contact the Clinical Chemistry Laboratory if there are any questions. ICa Whole Blood 1.10(L) 1.15 - 1.33 mmol/L [facility] Comment: Note: ??Total bilirubin higher than 20 mg/dL may lead to falsely low ionized calcium. CL Whole Blood 97(L) 98 - 107 mmol/L [facility] Gluc Whole Bld 161 65 - 199 mg/dL [facility] Comment:Diabetes: >=200 mg/d L plus symptoms. Lactate WB 3.3(H) 0.5 - 2.2 mmol/L [facility] FIO2 Art 100 % [facility] PF Ratio Art 186 [facility] Blood 05/12/2023 10:1 4 AM EDT 05/12/2023 10:14 AM EDT Alirio Hudson MD POINT OF CARE TEST ORDERABLES Performing Organization Address City/[facility]/ZIP Co de Phone Number [facility] [place] [address] * EKG 12 Lead (05/12/2023 10:10 AM EDT) Ventricular rate 116 BPM MUSE SYSTEM Atrial Rate 116 BPM MUSE SYSTEM P-R Interval 158 ms MUSE SYSTEM QRS Duration 114 ms MUSE SYSTEM Q-T Interval 348 ms MUSE SYSTEM QTC Calculated (Bezet) 483 ms MUSE SYSTEM Calculated P Watkins 37 degrees MUSE SYSTEM Calculated R Watkins 31 degrees MUSE SYSTEM Calculated T Watkins -138 degrees MUSE SYSTEM INTERPRETATION Sinus tachycardia with intermittent aberrant ventricular conduction Possible Left atrial enlargement Incomplete left bundle block Left ventricular hypertrophy with repolarization abnormality ( Sokolow-Orozco , [place] product ) ST & T wave abnormality in Inferolateral leads Abnormal ECG When compared with ECG of 10-MAY-2023 13:16, ST & T wave abnormality is more pronounced in inferolateral leads I personally reviewed the tracing and edited the fellows interpretation Confirmed by fellow MD Anuja, Jim ([id number]) on 05/12/2023 1:04:20 PM Confirmed by MD Villareal Danette ([id number]) on 05/12/2023 9:28:34 PM MUSE SYSTEM 05/12/2023 [...] who have questions please contact the health emergency care tech that requested your imaging first. ? Narrative 05/12/2023 10:08 AM EDT EXAMINATION: XR CHEST ONE VIEW CLINICAL HISTORY: Post TAVR TECHNIQUE: 1 view of the chest COMPARISON: Chest radiograph from earlier today FINDINGS: Interval placement of endotracheal tube with tip terminating 2 cm above the shira. Interval placement of enteric tube projecting along the expected course of the esophagus and outside the jvhog-pv-ljyh. Interval retraction of right IJ approach pulmonary [...] expected course ofthe esophagus and outside the daiky-ic-fwps. Interval retraction of right IJ approach pulmonary [...] patients who have questions please contactthe health emergency care tech that requested your imaging first. Alirio Hudson MD IMG DX ORDERABLES * ECHO LMTD W/O CONTRAST W LMTD SPEC DOPP COLOR DOPP (05/12/2023 9:23 AM EDT) EF 20 HEARTLAB SYSTEM Anatomical Region Laterality Modality Cardiac Other 05/12/2023 7:33 AM EDT Narrative 05/12/2023 10:18 AM EDT ? Echocardiogram Report Name: PURNIMA THACKER ?Study Date: 05/12/2023 07:33 AMBP: 96/63 mmHg ? Patient Location: [address] : 1955 ? Height: 154 cm ? Account: [id number] Age: 67 yrs ? Weight: 75 kg Gender: Female ?BSA: 1.7 m2 Ordering Physician: RADHA HOLLINS Referring Physician: RADHA HOLLINS Performed By: Dilma Bee RDCS Reason For Study: Guidance for TAVR procedure Exam Location: [facility]. Interpretation Summary PRE TAVR: [...] mL/m2. POST TAVR: Normal function of the cnarm-ur-cbkuh prosthesis. See below for hemodynamic parameters. Slight improvement in left and right ventricular systolic function. LVEF now 20-25%. No pericardial effusion. See report for additional findings. Procedure Limited - 37238. Doppler - 49154. Color Doppler - 98390. Left Ventricle Left ventricle is of normal [...] 307:33 AMBP: 96/63 mmHg Patient Location: [address] : 1955 Height: 154 cm Account: [id number] Age: 67 yrs Weight: 75 kg Gender: Female BSA: 1.7 m2 Ordering Physician: RADHA HOLLINS Referring Physician: RADHA HOLLINS Performed By: Dilma Bee RDCS Reason For Study: Guidance for TAVR procedure Exam Location: [facility]. Interpretation Summary PRE TAVR: [...] 28mL/m2. POST TAVR: Normal function of the szcrr-es-vmwoa prosthesis. See belowfor hemodynamic parameters. Slight improvement in left and right ventricularsystolic function. LVEF now 20-25%. No pericardial effusion. See report for additional findings. Procedure Limited - 51981. Doppler - 71965. Color Doppler - 81100. Left Ventricle Left ventricle is of normal [...] Modality Other Narrative 05/12/2023 2:37 PM EDT ?[facility] ? Cardiac Catheterization/Intervention Report ? Patient Name: Kirstie, Purnima M. ? Procedure Date: 05/12/2023 ? A #: [id number] ? Primary Physician: Zachary, Antelmo N ? Case #: [id number] ? File Name: [id number] ? Catheterization Order Number: [id number] ? [facility] ? Final Report [place], [place] ? Patient Name: ? Purnima M. Kirstie ? ID#: ?[id number] ? : ?1955 ? Procedure Date: ? May 12, 2023 ? Case #: ? [id number] ? Room: ? 6 ? Case Physicians: ?Antelmo Sharma M.D. ?Start: ?08:03 ?Alirio Hudson M.D. ?Admission: ??05/08/2023 ?Lynda Mcgowan M.D. ? Discharge: ??05/22/2023 ?Fellow: ? Rebekah Tejeda M.D. ? Referring Physician: ??Mario Alberto Chin M.D. ? Procedures: ?* Coronary Angiography ?* Left Heart Catheterization ?* Coronary Stent Insertion ?* Transcatheter Aortic Valve Replacement ?* Vascular Closure Device Deployment ?* Temporary Pacemaker Insertion In Logging Tractor Operator ?* Endotracheal Intubation By Non-Cath Physician [...] guide. ??A premounted 4.00 x 30 mm [place] (MINNA) was ? deployed with a maximum [...] calculated STS risk score was 30.1%. A tmtkz-nl-bgogc ?procedure was performed on the pre-existing bioprosthetic stented ?prosthesis. The priority of the aryte-ot-fzpkk procedure was Elective. ?The procedure was performed under Moderate sedation performed by Lynda Ramires ?Adair Mcgowan (see anesthesia report for additional details). Alirio Powell ?Vilma, M.D. participated in the case (see Cardiac Surgery report for ?additional details). ?The TAVR sheath was a 14 Fr Corona eSheath Introducer and the access ?site was femoral. Rapid ventricular pacing was performed. ?An Corona Lai 3 Ultra RESILIA 23 mm THV (s/w=[id number]) transcatheter ?valve was inserted using standard technique. [...] nor was it given in the ?laborer mine. ?Recommended anti-platelet/anti-thrombotic regimen: ?Continue aspirin 81 mg daily for indefinitely. ?These recommendations are made at the time of the intervention. Patient ?and provider preferences or a changing clinical situation may require ?modification of this regimen. Consult [facility] [place] for ?questions. ? [...] regimen. ? Comments: ?Successful right transfemoral TAVR Dgktj-pq-Vbxoq with a 23 mm Lai 3 ?THV. [...] access site angiography, ?temporary pacemaker in laborer mine, intubation-non cath physician, vascular ?closure device, transthoracic echo ??and TAVR. Dr. Alirio Hudson M.D. ?performed the left heart catheterization, access site angiography, ?temporary pacemaker in laborer mine, vascular closure device, transthoracic ?echo , TAVR and CPR during cath. Dr. Lynda Mcgowan M.D. performed the ABG, ?anesthesia and intubation-non cath physician. ? Antelmo Sharma M.D. ? Electronically Signed by: Antelmo Sharma M.D. ? Report Finalized: 05/12/2023 ??14:31 ? Report Last Ammended: 07/01/2023 ??11:30 ? Procedure Note Antelmo Sharma MD - 07/01/2023 [facility] Cardiac Catheterization/Intervention Report Patient Name: Purnima Thacker Procedure Date: 05/12/2023 A #: [id number] Primary Physician: Antelmo Sharma Case #: [id number] File Name: [id number] Catheterization Order Number: [id number] [facility] FinalReport Patient Name: Purnima Thacker ID#:[id number] :1955 Procedure Date: May 12, 2023 Case #: [id number] Room: 6 Case Physicians: Antelmo Sharma M.D. Start: 08:03 Alirio Hudson M.D. Admission:05/08/2023 Lynda Mcgowan M.D. Discharge:05/22/2023 Fellow: Rebekah Tejeda M.D. Referring Physician: Mario Alberto Chin M.D. Procedures: * Coronary Angiography * Left Heart Catheterization * Coronary Stent Insertion * Transcatheter Aortic Valve Replacement * Vascular Closure Device Deployment * Temporary Pacemaker Insertion In Logging Tractor Operator * Endotracheal Intubation By Non-Cath Physician [...] guide. A premounted 4.00 x 30 mm [place] (MINNA) was deployed with a maximum inflation [...] calculated STS risk score was 30.1%. A kcaty-fb-ojxki procedure was performed on the pre-existing bioprosthetic stented prosthesis. The priority of the mfldx-cf-ykvja procedure wasElective. The procedure was performed under Moderate sedation performed byLynda Mcgowan M.D. (see anesthesia report for additional details). Alirio Hudson M.D. participated in the case (see Cardiac Surgery reportfor additional details). The TAVR sheath was a 14 Fr Corona eSheath Introducer and theaccess site was femoral. Rapid ventricular pacing was performed. An [place] Lai 3 Ultra RESILIA 23 mm THV (s/z=[id number])transcatheter valve was inserted using standard technique. The [...] to nor was it given inthe laborer mine. Recommended anti-platelet/anti-thrombotic regimen: Continue aspirin 81 mg daily for indefinitely. These recommendations are made at the time of the intervention.Patient and provider preferences or a changing clinical situation mayrequire modification of this regimen. Consult [facility] [place] questions. Conclusions: * [...] this regimen. Comments: Successful right transfemoral TAVR Xrafi-it-Nkuna with a 23 mmSapien 3 THV. We [...] access site angiography, temporary pacemaker in laborer mine, intubation-non cath physician,vascular closure device, transthoracic echo and TAVR. Dr. Alirio Hudson M.D. performed the left heart catheterization, access site angiography, temporary pacemaker in laborer mine, vascular closure device,transthoracic echo , TAVR and [...] pH, POC 7.20(Crit ical) 7.35 - 7.45 [facility] Comment:Critical value OK, C C Lab. pCO2, POC 42 35 - 45 mmHg [facility] pO2, POC 260(H) 85 - 104 mmHg [facility] Base Excess, POC -11.0(L) -3.0 - 3.0 mmol/L [facility] Bicarbonate, POC 16.7(L) 20.0 - 26.0 mmol/L [facility] Sodium, POC 129(L) 135 - 145 mmol/L [facility] POC Potassium 3.8 3.5 - 5.0 mmol/L [facility] Ionized Calcium, POC 1.12(L) 1.15 - 1.33 mmol/L [facility] POC Hematocrit 23.0(L) 34.0 - 45.0 % [facility] POC Calc Hgb 7.8(L) 11.2 - 15.7 g/dL [facility] Comment:The calculation of h emoglobin from hematocrit assumes a normal MCHC. POC Bgas Loc CC Lab [facility] Blood 05/12/2023 8:50 AM EDT 05/13/2023 12:00 PM EDT Alirio Hudson MD CHEMISTRY ORDERABLE S [facility] [place] [address] * (ABNORMAL) Point of Care Blood Gas Historical (05/12/2023 8:10 AM EDT) pH, POC 7.27(Crit ical) 7.35 - 7.45 [facility] Comment:Critical value OK, C C Lab. pCO2, POC 37 35 - 45 mmHg [facility] pO2, POC 29(Critic al) 85 - 104 mmHg [facility] Comment:Critical value OK, C C Lab. Base Excess, POC -10.0(L) -3.0 - 3.0 mmol/L [facility] Bicarbonate, POC 16.7(L) 20.0 - 26.0 mmol/L [facility] Sodium, POC 123(L) 135 - 145 mmol/L [facility] POC Potassium 4.0 3.5 - 5.0 mmol/L [facility] Ionized Calcium, POC 1.12(L) 1.15 - 1.33 mmol/L [facility] POC Hematocrit 27.0(L) 34.0 - 45.0 % [facility] POC Calc Hgb 9.2(L) 11.2 - 15.7 g/dL [facility] Comment:The calculation of h emoglobin from hematocrit assumes a normal MCHC. POC Bgas Loc CC Lab [facility] Blood 05/12/2023 8:10 AM EDT 05/13/2023 12:00 PM EDT Alirio Hudson MD CHEMISTRY ORDERABLE S [facility] [place] [address] * (ABNORMAL) Lactate, whole blood, send to lab ([facility]) (05/12/2023 7:00 AM EDT) Lactate WB 2.4(H) 0.5 - 2.2 mmol/L [facility] Blood 05/12/2023 7:00 AM EDT 05/12/2023 7:09 AM EDT Narrative Resulting Agency Comment Spec In Lab Radha Hollins MD CHEMISTRY ORDERABL ES [facility] [place] [address] * (ABNORMAL) Comprehensive metabolic panel (non-fasting) (05/12/2023 6:00 AM EDT) Glucose 167 65 - 199 mg/dL [facility] Comment:Diabetes: >=200 mg/d L plus symptoms Blood Urea Nitrogen 67(H) 8 - 18 mg/dL [facility] Creatinine 2.01(H) 0.70 - 1.20 mg/dL [facility] Sodium 131(L) 135 - 145 mmol/L [facility] Potassium 4.3 3.5 - 5.0 mmol/L [facility] Comment: Please note: ??Patients with WBC >100,000 may have falsely elevated Potassium levels. ??For accurate Potassium quantification in these patients send serum separator tube (gold top) for subsequent determinations. ??Contact the Clinical Chemistry Laboratory if there are any questions. Chloride 97(L) 98 - 107 mmol/L [facility] Carbon Dioxide 14(L) 22 - 31 mmol/L [facility] Anion Gap 20(H) 5 - 15 mmol/L [facility] Calcium 8.6 8.5 - 10.5 mg/dL [facility] Protein, Total 6.3 6.1 - 8.0 g/dL [facility] Albumin 3.5 3.2 - 5.2 g/dL [facility] Aspartate Aminotransferase 1,435(H) 0 - 30 unit/L [facility] Alanine Aminotransferase 1,174(H) 0 - 30 unit/L [facility] Alkaline Phosphatase 100 35 - 105 unit/L [facility] Bilirubin, Total 0.9 0.2 - 1.3 mg/dL [facility] Est Glomerular Filtration Rate 27(L) >=60 mL/min/1. 73 m?? [facility] Comment: This patient's estimated GFR [...] ES Performing Organization Address [facility] Co de Phone Number [facility] [place] [address] * (ABNORMAL) Coox2 (05/12/2023 5:08 AM EDT) pO2, Coox 24 mmHg [facility] Hgb Blood Gas 10.4(L) 11.7 - 15.5 g/dL [facility] Oxyhemoglobin, Coox 30.7 % [facility] Carboxyhemoglo bin, Coox 0.3 % [facility] Comment: Nonsmokers: 0.5-1.5% COHB Smokers: Variable, but usually less than 10% Toxic: 20-30% COHB Lethal: Greater than 60% COHB Methemoglobin, Coox 0.8 <=1.5 % [facility] Source Coox Mixed Venous [facility] Blood 05/12/2023 5:08 AM EDT 05/12/2023 5:08 AM EDT Radha Hollins MD POINT OF CARE TEST ORDERABLES Performing Organization Address [facility] Co de Phone Number [facility] [place] [address] * (ABNORMAL) Coox2 (05/12/2023 3:21 AM EDT) pO2, Coox 25 mmHg [facility] Hgb Blood Gas 10.8(L) 11.7 - 15.5 g/dL [facility] Oxyhemoglobin, Coox 32.7 % [facility] Carboxyhemoglo bin, Coox 0.3 % [facility] Comment: Nonsmokers: 0.5-1.5% COHB Smokers: Variable, but usually less than 10% Toxic: 20-30% COHB Lethal: Greater than 60% COHB Methemoglobin, Coox 0.7 <=1.5 % [facility] Source Coox Mixed Venous [facility] Blood 05/12/2023 3:21 AM EDT 05/12/2023 3:21 AM EDT Radha Hollins MD POINT OF CARE TEST ORDERABLES [facility] [place] [address] * (ABNORMAL) BLOOD GAS 2 ARTERIAL (05/12/2023 3:18 AM EDT) pH, Arterial 7.34(L) 7.35 - 7.45 [facility] PCO2, Arterial 30(L) 35 - 45 mmHg [facility] PO2, Arterial 72(L) 85 - 104 mmHg [facility] Bicarbonate, Arterial 16.0(L) 20.0 - 26.0 mmol/L [facility] Base Excess, Arterial -9.8(L) -3.0 - 3.0 mmol/L [facility] Hgb Blood Gas 11.0(L) 11.7 - 15.5 g/dL [facility] Oxyhemoglobin, Arterial 89.8(L) 94.0 - 97.0 % [facility] Carboxyhemoglob in, Arterial 0.3 % [facility] Comment: Nonsmokers: 0.5-1.5% COHB Smokers: Variable, but usually less than 10% Toxic: 20-30% COHB Lethal: Greater than 60% COHB Methemoglobin, Arterial 0.7 <=1.5 % [facility] Na Whole Blood 131(L) 135 - 145 mmol/L [facility] K Whole Blood 4.2 3.5 - 5.0 mmol/L [facility] Comment: Please note: Patients with WBC >100,000 may have falsely elevated Potassium levels. Contact the Clinical Chemistry Laboratory if there are any questions. ICa Whole Blood 1.12(L) 1.15 - 1.33 mmol/L [facility] Comment: Note: ??Total bilirubin higher than 20 mg/dL may lead to falsely low ionized calcium. CL Whole Blood 100 98 - 107 mmol/L [facility] Gluc Whole Bld 160 65 - 199 mg/dL [facility] Comment:Diabetes: >=200 mg/d L plus symptoms. Lactate WB 2.7(H) 0.5 - 2.2 mmol/L [facility] Flow Art 5.0 LPM [facility] Blood 05/12/2023 3:18 AM EDT 05/12/2023 3:18 AM EDT Radha Hollins MD POINT OF CARE TEST ORDERABLES [facility] [place] [address] * (ABNORMAL) Coox2 (05/12/2023 1:14 AM EDT) pO2, Coox 28 mmHg [facility] Hgb Blood Gas 10.9(L) 11.7 - 15.5 g/dL [facility] Oxyhemoglobin, Coox 37.3 % [facility] Carboxyhemoglo bin, Coox 0.3 % [facility] Comment: Nonsmokers: 0.5-1.5% COHB Smokers: Variable, but usually less than 10% Toxic: 20-30% COHB Lethal: Greater than 60% COHB Methemoglobin, Coox 0.5 <=1.5 % [facility] Source Coox Mixed Venous [facility] Blood 05/12/2023 1:14 AM EDT 05/12/2023 1:14 AM EDT Radha Hollins MD POINT OF CARE TEST ORDERABLES [facility] [place] [address] * (ABNORMAL) BLOOD GAS 2 ARTERIAL (05/12/2023 1:06 AM EDT) pH, Arterial 7.34(L) 7.35 - 7.45 [facility] PCO2, Arterial 30(L) 35 - 45 mmHg [facility] PO2, Arterial 81(L) 85 - 104 mmHg [facility] Bicarbonate, Arterial 15.7(L) 20.0 - 26.0 mmol/L [facility] Base Excess, Arterial -10.1(L) -3.0 - 3.0 mmol/L [facility] Hgb Blood Gas 11.0(L) 11.7 - 15.5 g/dL [facility] Oxyhemoglobin, Arterial 92.3(L) 94.0 - 97.0 % [facility] Carboxyhemoglob in, Arterial 0.2 % [facility] Comment: Nonsmokers: 0.5-1.5% COHB Smokers: Variable, but usually less than 10% Toxic: 20-30% COHB Lethal: Greater than 60% COHB Methemoglobin, Arterial 0.6 <=1.5 % [facility] Na Whole Blood 131(L) 135 - 145 mmol/L [facility] K Whole Blood 4.2 3.5 - 5.0 mmol/L [facility] Comment: Please note: Patients with WBC >100,000 may have falsely elevated Potassium levels. Contact the Clinical Chemistry Laboratory if there are any questions. ICa Whole Blood 1.13(L) 1.15 - 1.33 mmol/L [facility] Comment: Note: ??Total bilirubin higher than 20 mg/dL may lead to falsely low ionized calcium. CL Whole Blood 99 98 - 107 mmol/L [facility] Gluc Whole Bld 132 65 - 199 mg/dL [facility] Comment:Diabetes: >=200 mg/d L plus symptoms. Lactate WB 2.7(H) 0.5 - 2.2 mmol/L [facility] Flow Art 5.0 LPM [facility] Blood 05/12/2023 1:06 AM EDT 05/12/2023 1:06 AM EDT Radha Hollins MD POINT OF CARE TEST ORDERABLES [facility] [place] [address] * (ABNORMAL) Differential, Automated (05/12/2023 1:05 AM EDT) Neutrophil % 83.3 % [facility] Neutrophil Absolute 7.49(H) 1.70 - 6.10 x10(3)/mc L [facility] Lymph % 7.1 % [facility] Lymphocytes Abs 0.6(L) 0.9 - 3.2 x10(3)/mc L [facility] Monocyte % 8.9 % [facility] Monocyte Abs 0.8 0.3 - 0.9 x10(3)/mc L [facility] Eos % 0.0 % [facility] Eosinophils Abs 0.0 0.0 - 0.4 x10(3)/mc L [facility] Basophil % 0.1 % [facility] Baso Absolute 0.0 0.0 - 0.1 x10(3)/mc L [facility] Immature Gran % 0.60 % [facility] Comment: Immature granulocytes(IG's)percentage and absolute count will include metamyelocytes, myelocytes, and promyelocytes. Blood smears from CBCs yielding IG's will be scanned manually for concordance. If this scan disagrees with the automated IG or if promyelocytes are noted, a manual differential will be performed. Immature Gran Absolute 0.05(H) 0.00 - 0.04 x10(3)/ L [facility] Blood 05/12/2023 1:05 AM EDT 05/12/2023 1:15 AM EDT Narrative Resulting Agency Comment Spec In Lab [facility] Fletcher MD HEMATOLOGY ORDERABLE S [facility] [place] [address] * (ABNORMAL) Hemogram (05/12/2023 1:05 AM EDT) White Blood Cell 9.0 4.0 - 9.5 x10(3)/mc L [facility] Red Blood Cell 3.01(L) 4.00 - 5.21 x10(6)/mc L [facility] Hemoglobin 9.8(L) 11.7 - 15.5 g/dL [facility] Hematocrit 28.7(L) 35.7 - 45.8 % [facility] Mean Cell Volume 95.3(H) 82.6 - 94.4 fL [facility] Mean Cell Hemoglobin 32.6(H) 27.1 - 32.0 pg [facility] Mean Cell Hemoglobin Concentration 34.1 31.7 - 35.0 g/dL [facility] Platelet 186 145 - 357 x10(3)/mc L [facility] RDW Standard Deviation 43.7 37.0 - 46.0 fL [facility] RDW coefficient of variation 12.7 11.5 - 14.1 % [facility] Mean Platelet Volume 10.3 7.6 - 12.9 fL [facility] NRBC% auto 0.0 % [facility] NRBC Absolute 0.000 0.000 - 0.000 x10(3)/mc L [facility] Blood 05/12/2023 1:05 AM EDT 05/12/2023 1:15 AM EDT Narrative Resulting Agency Comment Spec In Lab Gianni Fletcher MD HEMATOLOGY ORDERABLE S [facility] [place] [address] * (ABNORMAL) Comprehensive metabolic panel (non-fasting) (05/12/2023 1:05 AM EDT) Glucose 141 65 - 199 mg/dL [facility] Comment:Diabetes: >=200 mg/d L plus symptoms Blood Urea Nitrogen 63(H) 8 - 18 mg/dL [facility] Creatinine 1.86(H) 0.70 - 1.20 mg/dL [facility] Sodium 131(L) 135 - 145 mmol/L [facility] Potassium 4.4 3.5 - 5.0 mmol/L [facility] Comment: Please note: ??Patients with WBC >100,000 may have falsely elevated Potassium levels. ??For accurate Potassium quantification in these patients send serum separator tube (gold top) for subsequent determinations. ??Contact the Clinical Chemistry Laboratory if there are any questions. Chloride 96(L) 98 - 107 mmol/L [facility] Carbon Dioxide 14(L) 22 - 31 mmol/L [facility] Anion Gap 21(H) 5 - 15 mmol/L [facility] Calcium 9.0 8.5 - 10.5 mg/dL [facility] Protein, Total 6.6 6.1 - 8.0 g/dL [facility] Albumin 3.9 3.2 - 5.2 g/dL [facility] Aspartate Aminotransferase 1,227(H) 0 - 30 unit/L [facility] Alanine Aminotransferase 1,097(H) 0 - 30 unit/L [facility] Alkaline Phosphatase 108(H) 35 - 105 unit/L [facility] Bilirubin, Total 1.0 0.2 - 1.3 mg/dL [facility] Est Glomerular Filtration Rate 29(L) >=60 mL/min/1. 73 m?? [facility] Comment: This patient's estimated GFR [...] Lab Radha Hollins MD CHEMISTRY ORDERABL ES [facility] [place] [address] * XR Chest One View (05/12/2023 1:00 [...] who have questions please contact the health emergency care tech that requested your imaging first. ? Narrative [...] patients who have questions please contactthe health emergency care tech that requested your imaging first. Radha Hollins MD IMG DX ORDERABLES * (ABNORMAL) Coox2 (05/12/2023 12:30 AM EDT) pO2, Coox 22 mmHg [facility] Hgb Blood Gas 10.9(L) 11.7 - 15.5 g/dL [facility] Oxyhemoglobin, Coox 25.1 % [facility] Carboxyhemoglo bin, Coox 0.3 % [facility] Comment: Nonsmokers: 0.5-1.5% COHB Smokers: Variable, but usually less than 10% Toxic: 20-30% COHB Lethal: Greater than 60% COHB Methemoglobin, Coox 1.4 <=1.5 % [facility] Source Coox Mixed Venous [facility] Blood 05/12/2023 12:3 0 AM EDT 05/12/2023 12:30 AM EDT Radha Hollins MD POINT OF CARE TEST ORDERABLES [facility] [place] [address] * XR Chest One View (05/11/2023 11:45 [...] who have questions please contact the health emergency care tech that requested your imaging first. ? Narrative [...] patients who have questions please contactthe health emergency care tech that requested your imaging first. Radha Hollins MD IMG DX ORDERABLES * (ABNORMAL) Lactate, whole blood, [place] [place] [place] (05/11/2023 7:40 PM EDT) Lactate WB 4.8(Critic al) 0.5 - 2.2 mmol/L [facility] Comment:Called by: [facility], Read back by: Magdalena Baires, Date/Time:05/11/23 19:54. Blood 05/11/2023 7:40 PM EDT 05/11/2023 7:49 PM EDT Narrative Resulting Agency Comment Spec In Lab Radha Hollins MD CHEMISTRY ORDERABL ES Performing Organization Address City/[facility] Co de Phone Number [facility] [place] [address] * Urine culture (05/11/2023 7:22 PM EDT) Urine Culture 50,000-99,000 cfu/ml Normal mucosal herman Susceptibilit y testing not routinely performed for Coagulase Negative Staphylococcu s species and other Gram Positive organisms from urine. [facility] Clean Catch Urine 05/11/2023 7:22 PM EDT 05/11/2023 8:50 PM EDT Narrative Resulting Agency Comment Spec In Lab Brody Kaplan APRN MICROBIOLOGY - GENE RAL ORDERABLES [facility] [place] [address] * (ABNORMAL) Urinalysis Microscopic Exam (05/11/2023 7:22 PM EDT) RBC, Urine 2 0 - 4 /HPF [facility] WBC, Urine >100(H) 0 - 5 /HPF [facility] Bacteria, Urine Occasional (A) None /HPF [facility] Squamous Epithelial Cells Raw Data, Urine 5(H) <=4 /HPF [facility] Hyaline Casts, Urine 3(H) 0 - 2 /LPF [facility] Clean Catch Urine 05/11/2023 7:22 PM EDT 05/11/2023 7:31 PM EDT Narrative Resulting Agency Comment Spec In Lab Brody Kaplan NIPPLE MACHINE OPERATOR URINE ORDERABLES Performing Organization Address [facility] Co de Phone Number [facility] [place] [address] * (ABNORMAL) Urinalysis with reflex Culture (05/11/2023 7:22 PM EDT) Glucose, Urine Dipstick Negative Negative mg/dL [facility] Protein, Urine Dipstick Trace(A) Negative mg/dL [facility] Bilirubin, Urine Dipstick Negative Negative mg/dL [facility] Comment: Clinical correlation required for positive Urine Bilirubin results as false positive may occur with some drugs and drug related products. If a false positive is suspected a serum total bilirubin should be considered if clinically indicated. Urobilinogen, Urine Dipstick Normal Normal mg/dL [facility] pH, Urn (dipstick) 5.0 5.0 - 8.0 [facility] Blood, Urine Dipstick Trace(A) Negative mg/dL [facility] Ketone, Urine Dipstick Negative Negative mg/dL [facility] Nitrite, Urine Dipstick Negative Negative [facility] Leukocytes, Urine Dipstick Moderate(A) Negative mcL [facility] Appearance, Urine Dipstick Cloudy(A) Clear [facility] Specific [place] Urine Automated >=1.030(A) 1.005 - 1.030 [facility] Color, Urine Dipstick Yellow Yellow [facility] Reflex to Culture Yes [facility] Clean Catch Urine 05/11/2023 7:22 PM EDT 05/11/2023 7:31 PM EDT Narrative Resulting Agency Comment Spec In Lab Brody Kaplan NIPPLE MACHINE OPERATOR URINE ORDERABLES Performing Organization Address [facility]/ZIP Co de Phone Number [facility] [place] [address] * (ABNORMAL) pro-Brain Natriuretic Peptide (05/11/2023 7:11 PM EDT) NT-proBNP >35,000(H) <=124 pg/mL [facility] Blood 05/11/2023 7:11 PM EDT 05/11/2023 7:26 PM EDT Narrative Resulting Agency Comment Spec In Lab Radha Hollins MD CHEMISTRY ORDERABL ES Performing Organization Address [facility]/ZIP Co de Phone Number [facility] [place] [address] * (ABNORMAL) Lactate, whole blood, [place] lab [place] [place] [place] (05/11/2023 2:47 PM EDT) Lactate WB 2.9(H) 0.5 - 2.2 mmol/L [facility] Blood 05/11/2023 2:47 PM EDT 05/11/2023 2:53 PM EDT Narrative Resulting Agency Comment Spec In Lab Juan Luis Gonzalez MD CHEMISTRY ORDERABLES Performing Organization Address [facility] Co de Phone Number [facility] [place] [address] * (ABNORMAL) CT Angiogram Abdomen & Pelvis [...] who have questions please contact the health emergency care tech that requested your imaging first. ? Narrative [...] who have questions please contact the health emergency care tech that requested your imaging first. ? Narrative [...] 610 mm2 Circumference: 88 mm Calcification: Mild Jxlrjrd-jk-srykxmvm height: Left: 6.2 mm Right: 5.8 mm THORACIC AORTA Description: Normal course and caliber. ??Mild diffuse atherosclerotic changes. No acute aortopathy noted. Kitchen Food Server dimensions: Aortic root: 27.6 mm Max ascending aorta: 30.5 mm x 27.7 mm Suggested fluoroscopic angulation based on line extending through the nadirs of the three sinuses of Valsalva, set equidistant: ?? FAROESE ??9 degrees; cranial 7 degrees MITRAL: Mitral [...] 610 mm2 Circumference: 88 mm Calcification: Mild Lxjuelp-xi-ydrejine height: Left: 6.2 mm Right: 5.8 mm THORACIC AORTA Description: Normal course and caliber. Mild diffuse atheroscleroticchanges. No acute aortopathy noted. Kitchen Food Server dimensions: Aortic root: 27.6 mm Max ascending aorta: 30.5 mm x 27.7 mm Suggested fluoroscopic angulation based on line extending through thenadirs of the three sinuses of Valsalva, set equidistant: FAROESE 9 degrees; cranial 7 degrees MITRAL: Mitral [...] patients who have questions please contactthe health emergency care tech that requested your imaging first. Antelmo Sharma MD IMG CT ORDERABLES * (ABNORMAL) Lactate, whole blood, send to lab [place] [place] [place] (05/11/2023 9:29 AM EDT) Lactate WB 3.1(H) 0.5 - 2.2 mmol/L [facility] Blood 05/11/2023 9:29 AM EDT 05/11/2023 9:38 AM EDT Narrative Resulting Agency Comment Spec In Lab Juan Luis Gonzalez MD CHEMISTRY ORDERABLES Performing Organization Address City/[facility]/ZIP Co de Phone Number [facility] [place] [address] * (ABNORMAL) Differential, Automated (05/11/2023 4:42 AM EDT) Neutrophil % 78.1 % [facility] Neutrophil Absolute 5.46 1.70 - 6.10 x10(3)/mc L [facility] Lymph % 10.6 % [facility] Lymphocytes Abs 0.7(L) 0.9 - 3.2 x10(3)/mc L [facility] Monocyte % 9.6 % [facility] Monocyte Abs 0.7 0.3 - 0.9 x10(3)/mc L [facility] Eos % 0.0 % [facility] Eosinophils Abs 0.0 0.0 - 0.4 x10(3)/mc L [facility] Basophil % 0.4 % [facility] Baso Absolute 0.0 0.0 - 0.1 x10(3)/mc L [facility] Immature Gran % 1.30 % [facility] Comment: Immature granulocytes(IG's)percentage and absolute count will include metamyelocytes, myelocytes, and promyelocytes. Blood smears from CBCs yielding IG's will be scanned manually for concordance. If this scan disagrees with the automated IG or if promyelocytes are noted, a manual differential will be performed. Immature Gran Absolute 0.09(H) 0.00 - 0.04 x10(3)/mc L [facility] Blood 05/11/2023 4:42 AM EDT 05/11/2023 4:49 AM EDT Narrative Resulting Agency Comment Spec In Lab Klaudia Reid MD HEMATOLOGY OR DERABLES [facility] [place] [address] * (ABNORMAL) Hemogram (05/11/2023 4:42 AM EDT) Pathologist [facility] [place] White Blood Cell 7.0 4.0 - 9.5 x10(3)/mc L [facility] Red Blood Cell 3.44(L) 4.00 - 5.21 x10(6)/mc L [facility] Hemoglobin 11.1(L) 11.7 - 15.5 g/dL [facility] Hematocrit 32.7(L) 35.7 - 45.8 % [facility] Mean Cell Volume 95.1(H) 82.6 - 94.4 fL [facility] Mean Cell Hemoglobin 32.3(H) 27.1 - 32.0 pg [facility] Mean Cell Hemoglobin Concentration 33.9 31.7 - 35.0 g/dL [facility] Platelet 165 145 - 357 x10(3)/mc L [facility] RDW Standard Deviation 43.1 37.0 - 46.0 fL [facility] RDW coefficient of variation 12.7 11.5 - 14.1 % [facility] Mean Platelet Volume 10.1 7.6 - 12.9 fL [facility] NRBC% auto 0.0 % [facility] NRBC Absolute 0.000 0.000 - 0.000 x10(3)/ L [facility] Blood 05/11/2023 4:42 AM EDT 05/11/2023 4:49 AM EDT Narrative Resulting Agency Comment Spec In Lab Klaudia Reid MD HEMATOLOGY OR DERABLES Performing Organization Address City/State/[facility] Co de Phone Number [facility] [place] [address] * Heparin (unfractionated) Level (05/11/2023 4:42 AM EDT) UF Heparin 0.46 IU/mL [facility] Comment: Heparin (anti-Xa) levels [...] Lab Radha Hollins MD HEMATOLOGY ORDERAB LES [facility] [place] [address] * (ABNORMAL) Comprehensive metabolic panel (non-fasting) (05/11/2023 4:42 AM EDT) Glucose 143 65 - 199 mg/dL [facility] Comment:Diabetes: >=200 mg/d L plus symptoms Blood Urea Nitrogen 42(H) 8 - 18 mg/dL [facility] Creatinine 1.24(H) 0.70 - 1.20 mg/dL [facility] Sodium 134(L) 135 - 145 mmol/L [facility] Potassium 4.6 3.5 - 5.0 mmol/L [facility] Comment: Please note: ??Patients with WBC >100,000 may have falsely elevated Potassium levels. ??For accurate Potassium quantification in these patients send serum separator tube (gold top) for subsequent determinations. ??Contact the Clinical Chemistry Laboratory if there are any questions. Chloride 99 98 - 107 mmol/L [facility] Carbon Dioxide 14(L) 22 - 31 mmol/L [facility] Anion Gap 21(H) 5 - 15 mmol/L [facility] Calcium 9.6 8.5 - 10.5 mg/dL [facility] Protein, Total 7.2 6.1 - 8.0 g/dL [facility] Albumin 3.7 3.2 - 5.2 g/dL [facility] Aspartate Aminotransferase 144(H) 0 - 30 unit/L [facility] Comment:result rechecked-ssc Alanine Aminotransferase 130(H) 0 - 30 unit/L [facility] Comment:result rechecked-ssc Alkaline Phosphatase 72 35 - 105 unit/L [facility] Bilirubin, Total 0.8 0.2 - 1.3 mg/dL [facility] Est Glomerular Filtration Rate 48(L) >=60 mL/min/1. 73 m?? [facility] Comment: This patient's estimated GFR [...] CHEMISTRY ORDERABL ES Performing Organization Address City/[facility]/ZIP Co de Phone Number [facility] [place] [address] * EKG 12 Lead (05/10/2023 1:16 PM EDT) Ventricular rate 118 BPM MUSE SYSTEM Atrial Rate 118 BPM MUSE SYSTEM P-R Interval 152 ms MUSE SYSTEM QRS Duration 104 ms MUSE SYSTEM Q-T Interval 316 ms MUSE SYSTEM QTC Calculated (Bezet) 442 ms MUSE SYSTEM Calculated P Watkins 29 degrees MUSE SYSTEM Calculated R Watkins 18 degrees MUSE SYSTEM Calculated T Watkins -173 degrees MUSE SYSTEM INTERPRETATION Sinus tachycardia Minimal voltage criteria for LVH, may be normal variant ( [place] product ) Septal infarct , age undetermined ST & T wave abnormality, consider lateral ischemia Abnormal ECG When compared with ECG of 10-MAY-2023 07:59, Fusion complexes are no longer Present Premature ventricular complexes are no longer Present ST no longer depressed in Anterior leads Confirmed by MD Villareal Danette ([id number]) on 05/10/2023 8:47:46 PM MUSE SYSTEM 05/10/2023 1:16 PM EDT 05/10/2023 8:47 PM EDT Juan Luis Gonzalez MD ECG ORDERABLES Performing Organization Address City/[facility]/ZIP Co de Phone Number MUSE SYSTEM * Lactate, whole blood, [place] lab [place] [place] [place] (05/10/2023 11:52 AM EDT) Lactate WB 1.8 0.5 - 2.2 mmol/L [facility] Blood 05/10/2023 11:5 2 AM EDT 05/10/2023 12:13 PM EDT Narrative Resulting Agency Comment Spec In Lab Juan Luis Gonzalez MD CHEMISTRY ORDERABLES [facility] [place] [address] * XR Chest One View (05/10/2023 11:16 [...] who have questions please contact the health emergency care tech that requested your imaging first. ? Narrative [...] patients who have questions please contactthe health emergency care tech that requested your imaging first. Juan Luis Gonzalez MD IMG DX ORDERABLES * EKG 12 Lead (05/10/2023 7:59 AM EDT) Ventricular rate 115 BPM MUSE SYSTEM Atrial Rate 115 BPM MUSE SYSTEM P-R Interval 142 ms MUSE SYSTEM QRS Duration 102 ms MUSE SYSTEM Q-T Interval 322 ms MUSE SYSTEM QTC Calculated (Bezet) 445 ms MUSE SYSTEM Calculated P Watkins 36 degrees MUSE SYSTEM Calculated R Watkins 28 degrees MUSE SYSTEM Calculated T Watkins -119 degrees MUSE SYSTEM INTERPRETATION Sinus tachycardia with frequent Premature ventricular complexes and Fusion complexes ST & T wave abnormality, consider lateral ischemia Abnormal ECG When compared with ECG of 08-MAY-2023 15:51, No significant change was found I personally reviewed the tracing and edited the fellows interpretation Confirmed by fellow MD Anitha, [facility] ([id number]) on 05/11/2023 6:19:54 AM Confirmed by MD Tram, [place] ([id number]) on 05/11/2023 3:18:56 PM MUSE SYSTEM 05/10/2023 7:59 AM EDT 05/11/2023 3:18 PM EDT Radha Hollins MD ECG ORDERABLES MUSE SYSTEM * (ABNORMAL) Differential, Automated (05/10/2023 2:28 AM EDT) Neutrophil % 77.1 % [facility] Neutrophil Absolute 4.01 1.70 - 6.10 x10(3)/mc L [facility] Lymph % 14.0 % [facility] Lymphocytes Abs 0.7(L) 0.9 - 3.2 x10(3)/mc L [facility] Monocyte % 7.7 % [facility] Monocyte Abs 0.4 0.3 - 0.9 x10(3)/mc L [facility] Eos % 0.4 % [facility] Eosinophils Abs 0.0 0.0 - 0.4 x10(3)/mc L [facility] Basophil % 0.4 % [facility] Baso Absolute 0.0 0.0 - 0.1 x10(3)/mc L [facility] Immature Gran % 0.40 % [facility] Comment: Immature granulocytes(IG's)percentage and absolute count will include metamyelocytes, myelocytes, and promyelocytes. Blood smears from CBCs yielding IG's will be scanned manually for concordance. If this scan disagrees with the automated IG or if promyelocytes are noted, a manual differential will be performed. Immature Gran Absolute 0.02 0.00 - 0.04 x10(3)/mc L [facility] Blood 05/10/2023 2:28 AM EDT 05/10/2023 2:57 AM EDT Narrative Resulting Agency Comment Spec In Lab Klaudia Reid MD HEMATOLOGY OR DERABLES [facility] [place] [address] * (ABNORMAL) Hemogram (05/10/2023 2:28 AM EDT) White Blood Cell 5.2 4.0 - 9.5 x10(3)/mc L [facility] Red Blood Cell 3.11(L) 4.00 - 5.21 x10(6)/mc L [facility] Hemoglobin 10.2(L) 11.7 - 15.5 g/dL [facility] Hematocrit 30.2(L) 35.7 - 45.8 % [facility] Mean Cell Volume 97.1(H) 82.6 - 94.4 fL [facility] Mean Cell Hemoglobin 32.8(H) 27.1 - 32.0 pg [facility] Mean Cell Hemoglobin Concentration 33.8 31.7 - 35.0 g/dL [facility] Platelet 151 145 - 357 x10(3)/mc L [facility] RDW Standard Deviation 44.9 37.0 - 46.0 fL [facility] RDW coefficient of variation 12.8 11.5 - 14.1 % [facility] Mean Platelet Volume 9.8 7.6 - 12.9 fL [facility] NRBC% auto 0.0 % [facility] NRBC Absolute 0.000 0.000 - 0.000 x10(3)/ L [facility] Blood 05/10/2023 2:28 AM EDT 05/10/2023 2:57 AM EDT Narrative Resulting Agency Comment Spec In Lab Klaudia Reid MD HEMATOLOGY OR DERABLES [facility] [place] [address] * (ABNORMAL) Comprehensive metabolic panel (non-fasting) (05/10/2023 2:28 AM EDT) Glucose 100 65 - 199 mg/dL [facility] Comment:Diabetes: >=200 mg/d L plus symptoms Blood Urea Nitrogen 30(H) 8 - 18 mg/dL [facility] Creatinine 0.90 0.70 - 1.20 mg/dL [facility] Sodium 134(L) 135 - 145 mmol/L [facility] Potassium 4.1 3.5 - 5.0 mmol/L [facility] Comment: Please note: ??Patients with WBC >100,000 may have falsely elevated Potassium levels. ??For accurate Potassium quantification in these patients send serum separator tube (gold top) for subsequent determinations. ??Contact the Clinical Chemistry Laboratory if there are any questions. Chloride 102 98 - 107 mmol/L [facility] Carbon Dioxide 20(L) 22 - 31 mmol/L [facility] Anion Gap 12 5 - 15 mmol/L [facility] Calcium 9.3 8.5 - 10.5 mg/dL [facility] Protein, Total 6.4 6.1 - 8.0 g/dL [facility] Albumin 3.7 3.2 - 5.2 g/dL [facility] Aspartate Aminotransferase 24 0 - 30 unit/L [facility] Alanine Aminotransferase 14 0 - 30 unit/L [facility] Alkaline Phosphatase 70 35 - 105 unit/L [facility] Bilirubin, Total 0.5 0.2 - 1.3 mg/dL [facility] Est Glomerular Filtration Rate 70 >=60 mL/min/1. 73 m?? [facility] Comment: This patient's estimated GFR [...] Lab Radha Hollins MD CHEMISTRY ORDERABL ES [facility] [place] [address] * Heparin (unfractionated) Level (05/10/2023 2:28 AM EDT) [facility] UF Heparin 0.37 IU/mL [facility] Comment: Heparin (anti-Xa) levels [...] Lab Radha Hollins MD HEMATOLOGY ORDERAB LES [facility] [place] [address] * (ABNORMAL) Differential, Automated (05/09/2023 4:00 AM EDT) [facility] Neutrophil % 81.7 % [facility] Neutrophil Absolute 5.26 1.70 - 6.10 x10(3)/mc L [facility] Lymph % 10.7 % [facility] Lymphocytes Abs 0.7(L) 0.9 - 3.2 x10(3)/mc L [facility] Monocyte % 6.5 % [facility] Monocyte Abs 0.4 0.3 - 0.9 x10(3)/mc L [facility] Eos % 0.5 % [facility] Eosinophils Abs 0.0 0.0 - 0.4 x10(3)/mc L [facility] Basophil % 0.3 % [facility] Baso Absolute 0.0 0.0 - 0.1 x10(3)/mc L [facility] Immature Gran % 0.30 % [facility] Comment: Immature granulocytes(IG's)percentage and absolute count will include metamyelocytes, myelocytes, and promyelocytes. Blood smears from CBCs yielding IG's will be scanned manually for concordance. If this scan disagrees with the automated IG or if promyelocytes are noted, a manual differential will be performed. Immature Gran Absolute 0.02 0.00 - 0.04 x10(3)/mc L [facility] Blood 05/09/2023 4:00 AM EDT 05/09/2023 4:19 AM EDT Narrative Resulting Agency Comment Spec In Lab Klaudia Reid MD HEMATOLOGY OR DERABLES [facility] [place] [address] * (ABNORMAL) Hemogram (05/09/2023 4:00 AM EDT) White Blood Cell 6.4 4.0 - 9.5 x10(3)/ L [facility] Red Blood Cell 3.15(L) 4.00 - 5.21 x10(6)/mc L [facility] Hemoglobin 10.2(L) 11.7 - 15.5 g/dL [facility] Hematocrit 30.3(L) 35.7 - 45.8 % [facility] Mean Cell Volume 96.2(H) 82.6 - 94.4 fL [facility] Mean Cell Hemoglobin 32.4(H) 27.1 - 32.0 pg [facility] Mean Cell Hemoglobin Concentration 33.7 31.7 - 35.0 g/dL [facility] Platelet 151 145 - 357 x10(3)/mc L [facility] RDW Standard Deviation 44.7 37.0 - 46.0 fL [facility] RDW coefficient of variation 12.8 11.5 - 14.1 % [facility] Mean Platelet Volume 9.4 7.6 - 12.9 fL [facility] NRBC% auto 0.0 % [facility] NRBC Absolute 0.000 0.000 - 0.000 x10(3)/ L [facility] Blood 05/09/2023 4:00 AM EDT 05/09/2023 4:19 AM EDT Narrative Resulting Agency Comment Spec In Lab Klaudia Reid MD HEMATOLOGY OR DERABLES Performing Organization Address [facility] Co de Phone Number [facility] [place] [address] * Heparin (unfractionated) Level (05/09/2023 4:00 AM EDT) UF Heparin 0.47 IU/mL [facility] Comment: Heparin (anti-Xa) levels [...] LES Performing Organization Address [facility] Co de Phone Number [facility] [place] [address] * (ABNORMAL) Comprehensive metabolic panel (non-fasting) (05/09/2023 4:00 AM EDT) Glucose 108 65 - 199 mg/dL [facility] Comment:Diabetes: >=200 mg/d L plus symptoms Blood Urea Nitrogen 31(H) 8 - 18 mg/dL [facility] Creatinine 1.03 0.70 - 1.20 mg/dL [facility] Sodium 137 135 - 145 mmol/L [facility] Potassium 4.4 3.5 - 5.0 mmol/L [facility] Comment: Please note: ??Patients with WBC >100,000 may have falsely elevated Potassium levels. ??For accurate Potassium quantification in these patients send serum separator tube (gold top) for subsequent determinations. ??Contact the Clinical Chemistry Laboratory if there are any questions. Chloride 102 98 - 107 mmol/L [facility] Carbon Dioxide 20(L) 22 - 31 mmol/L [facility] Anion Gap 15 5 - 15 mmol/L [facility] Calcium 9.3 8.5 - 10.5 mg/dL [facility] Protein, Total 6.6 6.1 - 8.0 g/dL [facility] Albumin 3.8 3.2 - 5.2 g/dL [facility] Aspartate Aminotransferase 32(H) 0 - 30 unit/L [facility] Alanine Aminotransferase 18 0 - 30 unit/L [facility] Alkaline Phosphatase 78 35 - 105 unit/L [facility] Bilirubin, Total 0.5 0.2 - 1.3 mg/dL [facility] Est Glomerular Filtration Rate 60 >=60 mL/min/1. 73 m?? [facility] Comment: This patient's estimated GFR [...] Lab Radha Hollins MD CHEMISTRY ORDERABL ES [facility] [place] [address] * (ABNORMAL) pro-Brain Natriuretic Peptide (05/08/2023 4:00 PM EDT) NT-proBNP 25,503(H) <=124 pg/mL [facility] Blood Venous Draw / Unknown 05/08/2023 4:00 PM EDT 05/08/2023 4:25 PM EDT Narrative Resulting Agency Comment Spec In Lab Juan Luis Gonzalez MD CHEMISTRY ORDERABLES Performing Organization Address [facility] Co de Phone Number [facility] [place] [address] * Magnesium (05/08/2023 4:00 PM EDT) Pathologist [facility] Magnesium 0.82 0.69 - 1.07 mmol/L [facility] Blood 05/08/2023 4:00 PM EDT 05/08/2023 4:06 PM EDT Narrative Resulting Agency Comment Spec In Lab Enrique Chua MD CHEMISTRY ORDERABLES Performing Organization Address [facility] de Phone Number [facility] [place] [address] * Potassium (05/08/2023 4:00 PM EDT) Pathologist [facility] Potassium 3.9 3.5 - 5.0 mmol/L [facility] Comment: Please note: [...] ES Performing Organization Address [facility] Co de Phone Number [facility] [place] [address] * Heparin (unfractionated) Level (05/08/2023 4:00 PM EDT) UF Heparin 0.43 IU/mL [facility] Comment: Heparin (anti-Xa) levels [...] MD HEMATOLOGY ORDERAB LES Performing Organization Address City/[facility]/ZIP Co de Phone Number [facility] [place] [address] * EKG 12 Lead (05/08/2023 3:51 PM EDT) Ventricular rate 98 BPM MUSE SYSTEM Atrial Rate 98 BPM MUSE SYSTEM P-R Interval 150 ms MUSE SYSTEM QRS Duration 102 ms MUSE SYSTEM Q-T Interval 358 ms MUSE SYSTEM QTC Calculated (Bezet) 457 ms MUSE SYSTEM Calculated P Watkins 38 degrees MUSE SYSTEM Calculated R Watkins 48 degrees MUSE SYSTEM Calculated T Watkins -112 degrees MUSE SYSTEM INTERPRETATION Sinus rhythm with frequent and consecutive Premature ventricular and fusion complexes Septal infarct , age undetermined ST & T wave abnormality, consider anterolateral ischemia Abnormal ECG When compared with ECG of 09-NOV-2022 11:17, T wave inversion now evident in Anterolateral leads Confirmed by MD Harshil, Enrique Bell ([id number]) on 05/10/2023 8:11:46 AM MUSE SYSTEM 05/08/2023 3:51 PM EDT 05/10/2023 8:11 AM EDT Radha Hollins MD ECG ORDERABLES Performing Organization Address [facility] Co de Phone Number MUSE SYSTEM * (ABNORMAL) Differential, Automated (05/08/2023 11:38 AM EDT) Neutrophil % 71.3 % [facility] Neutrophil Absolute 2.91 1.70 - 6.10 x10(3)/mc L [facility] Lymph % 19.1 % [facility] Lymphocytes Abs 0.8(L) 0.9 - 3.2 x10(3)/ L [facility] Monocyte % 9.0 % [facility] Monocyte Abs 0.4 0.3 - 0.9 x10(3)/ L [facility] Eos % 0.2 % [facility] Eosinophils Abs 0.0 0.0 - 0.4 x10(3)/[facility] Basophil % 0.2 % [facility] Baso Absolute 0.0 0.0 - 0.1 x10(3)/ L [facility] Immature Gran % 0.20 % [facility] Comment: Immature granulocytes(IG's)percentage and absolute count will include metamyelocytes, myelocytes, and promyelocytes. Blood smears from CBCs yielding IG's will be scanned manually for concordance. If this scan disagrees with the automated IG or if promyelocytes are noted, a manual differential will be performed. Immature Gran Absolute 0.01 0.00 - 0.04 x10(3)/ L [facility] Blood 05/08/2023 11:3 8 AM EDT 05/08/2023 11:44 AM EDT Narrative Resulting Agency Comment Spec In Lab Lincoln Sal MD HEMATOLOGY ORDERA BLES [facility] [place] [address] * (ABNORMAL) Hemogram (05/08/2023 11:38 AM EDT) White Blood Cell 4.1 4.0 - 9.5 x10(3)/[facility] Red Blood Cell 3.05(L) 4.00 - 5.21 x10(6)/[facility] Hemoglobin 10.2(L) 11.7 - 15.5 g/dL [facility] Hematocrit 29.6(L) 35.7 - 45.8 % [facility] Mean Cell Volume 97.0(H) 82.6 - 94.4 fL [facility] Mean Cell Hemoglobin 33.4(H) 27.1 - 32.0 pg [facility] Mean Cell Hemoglobin Concentration 34.5 31.7 - 35.0 g/dL [facility] Platelet 136(L) 145 - 357 x10(3)/mc L [facility] RDW Standard Deviation 44.3 37.0 - 46.0 fL [facility] RDW coefficient of variation 12.6 11.5 - 14.1 % [facility] Mean Platelet Volume 9.4 7.6 - 12.9 fL [facility] NRBC% auto 0.0 % [facility] NRBC Absolute 0.000 0.000 - 0.000 x10(3)/mc L [facility] Blood 05/08/2023 11:3 8 AM EDT 05/08/2023 11:44 AM EDT Narrative Resulting Agency Comment Spec In Lab Lincoln Sal MD HEMATOLOGY ORDERA BLES Performing Organization Address City/[facility]/ZIP Co de Phone Number [facility] [place] [address] * TSH (05/08/2023 11:38 AM EDT) Thyroid Stimulating Hormone 1.27 0.27 - 4.20 mcIU/mL [facility] Comment: Reference Interval (mcIU/mL): Females: ??First Trimester: 0.23-3.88 ??Second Trimester: 0.22-3.90 ??Third Trimester: 0.44-4.66 Blood 05/08/2023 11:3 8 AM EDT 05/08/2023 11:44 AM EDT Narrative Resulting Agency Comment Spec In Lab Enrique Chua MD CHEMISTRY ORDERABLES Performing Organization Address City/[facility]/ZIP Co de Phone Number [facility] [place] [address] * (ABNORMAL) Phosphorus (05/08/2023 11:38 AM EDT) Phosphorus 4.7(H) 2.5 - 4.5 mg/dL [facility] Blood 05/08/2023 11:3 8 AM EDT 05/08/2023 11:44 AM EDT Narrative Resulting Agency Comment Spec In Lab Enrique Chua MD CHEMISTRY ORDERABLES [facility] [place] [address] * Magnesium (05/08/2023 11:38 AM EDT) Magnesium 0.76 0.69 - 1.07 mmol/L [facility] Blood 05/08/2023 11:3 8 AM EDT 05/08/2023 11:44 AM EDT Narrative Resulting Agency Comment Spec In Lab Enrique Chua MD CHEMISTRY ORDERABLES Performing Organization Address [facility] Co de Phone Number [facility] [place] [address] * (ABNORMAL) Basic Metabolic Panel (non-fasting) (05/08/2023 11:38 AM EDT) Glucose 97 65 - 199 mg/dL [facility] Comment:Diabetes: >=200 mg/d L plus symptoms Blood Urea Nitrogen 27(H) 8 - 18 mg/dL [facility] Creatinine 1.02 0.70 - 1.20 mg/dL [facility] Sodium 139 135 - 145 mmol/L [facility] Potassium 4.2 3.5 - 5.0 mmol/L [facility] Comment: Please note: ??Patients with WBC >100,000 may have falsely elevated Potassium levels. ??For accurate Potassium quantification in these patients send serum separator tube (gold top) for subsequent determinations. ??Contact the Clinical Chemistry Laboratory if there are any questions. Chloride 105 98 - 107 mmol/L [facility] Carbon Dioxide 20(L) 22 - 31 mmol/L [facility] Anion Gap 14 5 - 15 mmol/L [facility] Calcium 9.4 8.5 - 10.5 mg/dL [facility] Est Glomerular Filtration Rate 60 >=60 mL/min/1. 73 m?? [facility] Comment: This patient's [...] In Lab Enrique Chua MD CHEMISTRY ORDERABLES [facility] [place] [address] * ECHO COMPLETE (05/08/2023 11:02 AM EDT) Pathologist [facility] EF 25 HEARTLAB SYSTEM Anatomical Region Laterality Modality Cardiac Other 05/08/2023 10:0 3 AM EDT Narrative 05/08/2023 11:51 AM EDT ? Echocardiogram Report Name: PURNIMA THACKER ?Study Date: 05/08/2023 10:03 AMBP: 92/64 mmHg ? Patient Location: [facility]^CV29^A : 1955 ? Height: 155 cm ? Account: [id number] Age: 67 yrs ? Weight: 78 kg Gender: Female ?BSA: 1.8 m2 Ordering Physician: ENRIQUE CHUA Referring Physician: MARIO ALBERTO CHIN Performed By: CHUCKIE Canchola Reason For Study: SAVR Stenosis Exam Location: [facility]. Interpretation Summary -Left ventricle [...] worsening stenosis. Mitral regurgitation is similar. Procedure Complete-08078. Satisfactory quality. There is normal sinus rhythm. [...] 0:03 AMBP: 92/64 mmHg Patient Location:[facility]^CV29^A : 1955 Height: 155 cm Account: [id number] Age: 67 yrs Weight: 78 kg Gender: Female BSA: 1.8 m2 Ordering Physician: ENRIQUE CHUA Referring Physician: MARIO ALBERTO CHIN Performed By: CHUCKIE Canchola Reason For Study: SAVR Stenosis Exam Location: [facility]. Interpretation Summary -Left ventricle [...] suggestsworsening stenosis. Mitral regurgitation is similar. Procedure Complete-[id number]. Satisfactory quality. There is normal sinus rhythm. 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 Mild coronary artery disease by [facility] 11/09/2022 Mixed connective tissue disease Other [...] ejection fraction Mild coronary artery disease by [facility] 11/09/2022 Stenosis of prosthetic aortic valve [...] 10 mg, Rectal, ONCE, 1 dose, On 05/17/23 at 0845, Routine Given 05/17/2023 8:20 AM [...] dose on Wed05/12/23 at 1030, Until Discontinued, [place] teeth, Routine Given 05/12/2023 10:04 AM EDT 15 mLs fentaNYL (50 mcg/mL) bolus from infusion 25 mcg 25 mcg, Intravenous, EVERY 10 MIN PRN, Starting on Wed05/12/23 at 0944, Until Wed05/13/23 at 0826, Pain, For breakthrough pain (pain [...] 1030, Until Wed05/13/23 at 0826, Titrate to patient comfort, pain [...] 0923, Until 05/08/23 at 1103, Alisha Norris: ellyinet override heparin (porcine) 50 units/mL in dextrose [...] at 0052, Until Wed05/12/23 at 0118, Nery Zeepda: rigot override NORepinephrine (Levophed) (16 mcg/mL) in [...] to 0-22.4 mL/hr), Intravenous, CONTINUOUS, Starting on 05/12/23 at 1030, Until Marquita 05/13/23 at 0826, [...] Side port TKO rate, per CC flush protocol. Rate/Dose Verify 05/17/2023 8:00 AM [...] 0051, Until Wed05/12/23 at 0119, Nery Zepeda: rigot override vasopressin (Vasostrict) (0.2 units/mL) 100 mL [...] Until Discontinued, Routine 0835 (Given - Provider: Gaibno Calhoun RN) 0900 (Not Given - Provider: [...] Kia Gallego, VALDO)2012 (Given - Provider: Favian Mckoen, VALDO) 826 (Given - Provider: Kia Gallego, VALDO) [...] indicated., Routine 1757 (Given - Provider: Gabino Calhoun, VALDO)234 (Given - Provider: Petros Valiente RN) bisacodyL (Dulcolax) suppository 10 mg 10 mg, Rectal, DAILY PRN, Starting on 05/15/23 at 0000, Until 05/22/23 at 1246, Constipation, Starting post-op day 3., Routine HYDROmorphone (Dilaudid) (0.5 mg/0.5 mL) injection syringe 0.2 mg 0.2 mg, Intravenous, EVERY 4 HOURS PRN, Starting on Tue 23 at 1939, Until 05/22/23 at 1246, Pain, [...] 40 mg, Intravenous, DAILY, First dose on 10/11/23 at 1030, Until Discontinued, Reconstitute with 10 mL of normal saline to a concentration of 4 mg/mL and inject slowly over 2 minutes. Reconstitute with 10 mL of normal saline to a concentration of 4 mg/mL and inject slowly over 2 minutes., Routine documented in this encounter Care Teams [employer] Relationship Specialty Start Date End Date Magdalena Acosta MD [address] [place] [address] PCP - General Family Medicine 02/05/23 documented as of this encounter
--- OUTSIDE RECORDS SUMMARY | 2024-05-25 14:09 | XMS_ITS | Encounter Summary ---
[place] [address] Care Team Providers Care Passport Support Associate Name Role Phone Magdalena Acosta MD [...] 10:00 AM EDT Office [place] [phone] Magdalena Peralta MD [facility] [place] [address] 06/05/2024 2:00 PM EST Hospital Encounter [facility] [place] [phone] Markel Borjas MD [facility] [address] [place]Y [place] [address] 06/05/2024 2:00 PM EST - 06/05/2024 3:00 PM EST Surgery [facility] [place] [phone] Markel Borjas MD [facility] DR [place] [address] (OSC MSURG) BONE MARROW BIOPSY AND ASPIRATION; DIAGNOSTIC (WRVU 1.44) 06/23/2024 2:00 PM EST Office Visit Hematology [place] [phone] Markel Borjas MD [facility] DR [place]EM[place]OLOGY [place] [address] 03/01/2025 4:15 PM EDT Office Visit Dermatology at [place] [address] [place] [phone] Marek Bonilla MD [address], [place] [address] Scheduled Procedures Name Priority Associated Diagnoses Date/Ti me (OSC MSURG) BONE MARROW BIOPSY AND ASPIRATION; DIAGNOSTIC (WRVU 1.44) Anemia, in pt with longstanding neutropenia 06/05/2024 2:00 PM EST documented as of this encounter Visit Diagnoses Not on filedocumented in this encounter Care Teams Passport Support Associate Relationship Specialty Start Date End Date Magdalena Acosta MD [address] [place] [address] PCP - General Family Medicine 02/05/23 documented as of this encounter
--- OUTSIDE RECORDS SUMMARY | 2024-05-25 14:10 | XMS_ITS | Encounter Summary ---
[place] [address] Care Team Providers Care Waste Disposal Leakage Tester Name Role Phone Magdalena Acosta MD Primary Care Provider [phone] Reason for Visit * Auth/Cert (Routine) Specialty Diagnoses / Procedures Referred By Contac t Referred To Contact Diagnoses Symptomatic severe aortic stenosis with low ejection fraction NSTEMI, CHF Enrique Chua MD [facility] [place] [address] [facility] Referral ID Status Reason Start Date Expiration Date Visits Re quested Visits Authorized [id number] 1 1 Encounter Details Date Type Department Care Team (Late st Contact Info) Description 05/12/2023 2:50 PM EDT - 05/12/2023 3:50 PM EDT Surgery [place] [address] Antelmo Sharma MD [facility] [place] [address] CARDIAC CATHETERIZATION Social History Tobacco Use Types [...] with PCP, Magdalena Acosta MD, or Primary Drier Operator Helper, Avis Mejia MD, in ~ 7-10 days. Patient to follow up with [facility], Dr. Antelmo Sharma, in 2 weeks with an EKG, Echo, CBC, and CMP. Patient to follow up with Nephrology, their office to arrange. Nkng-Ffgosz-qi interval: After initial 30 day follow-up appointment , all TAVR patients will follow-up again in one year with an echo. Inpatient Provider Contact Information: [facility] Section of Cardiac Surgery [facility] [address] FAX [phone] Discharge Diagnoses (Hospital Problems) Primary Diagnoses: Prosthetic [...] Major Procedures/Operations: 05/12/23: Successful right transfemoral TAVR Vaevg-lc-Pwaxy with a 23 mm Lai 3 THV. [...] TAVR and she was brought to the union laborer the following morning where Drs. Alirio [...] if you have questions. Please call your [facility] office if you have any discharge or drainage from your procedural sites. Your [facility], Dr. Antelmo Sharma and/or the Moisture Machine Tender may be reached at . Antibiotic prophylaxis: You will need to take antibiotics prior to many invasive tests and treatments, such as dental cleaning, which should be done every 6 months. Your primary care physician or your dentist can prescribe this medication. Please refer to the card with the [employer] Guidelines for more information. You have been provided with a copy of this card. Please refer to the [employer] Guidelines for more information. Good [...] friends, go to a movie, go to synagogue, etc. Heavy activities: No hunting, skiing, jogging, [...] should resume a low fat, low cholesterol, [employer] Diet Driving: No restrictions. Shower/Bath: You may shower daily. No baths, soaking, or swimming for the first week. Wound care: Wash the sites daily with soap and rinse well, pat dry. Assess for any signs of infection such as increased redness, pain, warmth or drainage. Please call your residential real estate assistant's office if you have any discharge or drainage from your procedural sites. If there is a lot of swelling, apply mamta wraps during the day and remove at bedtime. Elevate your legs when you are sitting. Home oxygen therapy: N/A Follow up appointments: Please schedule a follow-up appointment with your PCP, Magdalena Acosta MD, or Primary Drier Operator Helper in ~ 7-10 days. You have a follow-up appointment with your [facility], Dr. Antelmo Sharma, in 2 weeks with an EKG, Echo, and labs prior to your appointment. You will need follow-up with Nephrology, their office will arrange. Tqna-Cuwnkx-ut interval: After initial 30 day follow-up appointment [...] 11:00 AM Magdalena Peralta MD Rheumatology at [facility] Arrive at: [facility] [phone] 02/11/2024 2:00 PM Marek Bonilla MD Dermatology at [place] Arrive at: [facility] [address] [phone] Future Orders Complete By Expires Type and Screen Future Surgery, [facility] SAME DAY PROGRAM ONLY) [[id number] Custom] 05/11/2023 Process Instructions: This test is intended ONLY for patients with upcoming surgery for testing prior to the day of surgery obtained through the same day program (4V or SDP). For ALL OTHER PATIENTS, order a Type and Screen (AOB314) This order includes the physician order for an ABO Recheck if requested by the Blood Bank. Scheduling Instructions: Comments: Questions: Date of surgery: CBC (with Diff) [VVO463 Custom] 06/05/2023 12/05/2023 Process Instructions: INCLUDES: WBC, RBC, Hgb, Hct, Platelets, RBC Indices and Differential Scheduling Instructions: Comments: Questions: Comprehensive metabolic panel (non-fasting) [LAB17 Custom] 06/05/2023 08/20/2023 Process Instructions: INCLUDES: Calcium, T Protein, Albumin, AST, ALT, Alk Phos, T Bili, BUN, Creat, GFR, Glucose, Lytes. Scheduling Instructions: Comments: Questions: Echocardiogram Transthoracic [01075 CPT(R)] 06/05/2023 12/05/2023 Process Instructions: Scheduling Instructions: Questions: Where will study be performed?: [facility] Clinics Does the patient have Congenital Heart Disease?: Does patient require sedation?: GA rationale: EKG 12 Lead [28093 CPT(R)] 06/05/2023 12/05/2023 Process Instructions: Scheduling Instructions: Questions: Which location will this be performed?: [facility] Is a rhythm strip needed?: No [facility] Devices [EQ161 Custom] As directed Process Instructions: Scheduling Instructions: Questions: Device Needed: WALKER (E0143) Patient Height (cm): 154.9 cm (5' 0.98) Patient Weight: 75.4 kg (166 lb 3.2 oz) Diagnosis: Unsteady gait when walking Referral to Cardiac Rehab [NEQ060 Custom] As directed Process Instructions: If no [...] FOR VNA SERVICES PATIENT'S LOCATION: Purnima Thacker [address] [place] [phone] (home) Revenue Settlements Administrator's Name: Irineo and brother Raymond In discussion with the attending physician, it is certified that this patient is under his/her careand that MD, or an PURCHASING ASSOCIATE, TEMPERING OVEN OPERATOR, or PA who is working directly with him/her, had a rrvw-tq-aabi encounter that meets the physician gqsb-vv-lxsw encounter requirements with this patient on 05/22/2023. [...] for managing ADLs. HOME HEALTH CARE AGENCY: [facility]. [address] [facility] [address] PHONE: [phone] FAX: [phone] Start of care: Ideally 24-48 hours after [...] patient's PCP: Magdalena Acosta MD [address] [facility] [phone] All VNA agencies which cover the area of patient's residence have been reviewed, either verbally joao writing, and patient has chosen the home health care agency noted. Questions: Disciplines Requested: Physical Therapy Occupational Therapy Discharge References/Attachments None Arrangements for VNA/home care: As above. (delete if no VNA) Signed: EKATERINA NAVARRETE [facility] Section of Cardiac Surgery Date: 05/22/2023 CC: Magdalena Acosta MD TryonMario Alberto maxwell MD [address] [place] [address] [place] [address] documented in this encounter Discharge Instructions * Patient Instructions* Vinod Juárez PA - 05/22/2023 9:32 AM EDT TAVR Discharge Instructions: Call your doctor if: You have a fever of greater than 101 degrees, shaking chills, if you develop redness or drainage from your procedure sites, or if you have questions. Please call your [facility] office if you have any discharge or drainage from your procedural sites. Your [facility], Dr. Antelmo Sharma and/or the Moisture Machine Tender may be reached at . Antibiotic prophylaxis: You will need to take antibiotics prior to many invasive tests and treatments, such as dental cleaning, which should be done every 6 months. Your primary care physician or your dentist can prescribe this medication. Please refer to the card with the [employer] Guidelines for more information. You have been provided with a copy of this card. Please refer to the [employer] Guidelines for more information. Good [...] friends, go to a movie, go to synagogue, etc. Heavy activities: No hunting, skiing, jogging, [...] should resume a low fat, low cholesterol, [employer] Diet Driving: No restrictions. Shower/Bath: You may shower daily. No baths, soaking, or swimming for the first week. Wound care: Wash the sites daily with soap and rinse well, pat dry. Assess for any signs of infection such as increased redness, pain, warmth or drainage. Please call your residential real estate assistant's office if you have any discharge or drainage from your procedural sites. If there is a lot of swelling, apply mamta wraps during the day and remove at bedtime. Elevate your legs when you are sitting. Home oxygen therapy: N/A Follow up appointments: Please schedule a follow-up appointment with your PCP, Magdalena Acosta MD, or Primary Drier Operator Helper in ~ 7-10 days. You have a follow-up appointment with your [facility], Dr. Antelmo Sharma, in 2 weeks with an EKG, Echo, and labs prior to your appointment. You will need follow-up with Nephrology, their office will arrange. Qlgh-Njnrot-yo interval: After initial 30 day follow-up appointment , all TAVR patients will follow-up again in one year with an echo. Cardiac Rehabilitation: Purnima M Kirstie was seen today regarding participation in the [...] ins ( tef) Haven Ba, PT Pager: [phone] Physical Therapy Inpatient Rehabilitation Department * Nico [...] 0600 and on the weekends please page [phone]. * Jory Paniagua - 05/20/2023 3:52 PM [...] Last Bowel Movement: 05/20/23 Jory Paniagua Manager Of Training And Development * Tong Mike, OT - 05/20/2023 3:16 [...] three steps to enter. DME: none used [employer] Baseline ADL/Mobility: Independent with ADLs and IADLs. [...] awareness: WFL Vision & Perception: corrective lenses team leader/research psychologist Communication: WFL Range of motion, strength, coordination: [...] has been seen for occupational therapy evaluation. Purnimamariza Thacker presents with the following performance skill [...] Discharge planning. Total Minutes, Occupational Therapy: 28 (1939-5044) OT Evaluation Code Rationale: Diagnosis & Pertinent Co-Morbidities affecting Plan of Care: see PMHx Occupational Profile & Client History: Brief Expanded Extensive x Assessment of Occupational Performance: 1-3 performance deficits 3-5 performance deficits x 5 + performance deficits Clinical Decision Making: Low Moderate High x Clinical decision making of moderate complexity using standardized patient assessment instrument and measurable assessment of functional outcome. Pager: [phone] TONG MIKE OT 05/20/2023 Occupational Therapy Rehabilitation [...] 0600 and on the weekends please page [phone]. * Rylie Rodriguez MD - 05/19/2023 3:59 [...] and plan. Cynthia Blackburn MD Nephrology Pager: [phone] * Diana Espino - 05/19/2023 1:49 PM EDT Narcotics Agent Encounter Note Patient Name: Purnima Thacker : [id number] MR#: [id number] Admit Date: 05/08/2023 9:14 AM Hospital Day [...] as stated. Total Minutes, Physical Therapy: 38 ([phone]) Henrik Navarrete PTA Pager: [phone] Physical Therapy Inpatient Rehabilitation Department * Nico [...] 0600 and on the weekends please page [phone]. * Laure Ricks PA - 05/19/2023 7:56 [...] Ricks PA-C Interventional Radiology IR Team Pager [phone] * Consuelo Espinoza RN - 05/18/2023 4:13 PM EDT ANGIO NURSING DATABASE Name: Purnima Thacker Date of : 1955 AGE: 67 y.o. Address: [address] [place] [phone] (home) Mobile: No relevant phone numbers on [...] TAVR (with hx of tissue AVR in 2016) and HTN who is being followed by [...] and plan. Cynthia Blackburn MD Nephrology Pager: [phone] * Magdalena Puri, VESSEL SPECIALIST - 05/18/2023 10:51 AM EDT Images from the original note were not included. [facility] [place] [address] [address] STRUCTURAL HEART DISEASE CONSULTATION NOTE PRIMARY CARE [...] stenosis. She is now status post TAVR Qpbpk-jm-Spbfo with a 23 mm Lai 3 THV 05/12/[address] Sharma. Preliminary findings: Successful right transfemoral TAVR Oqmlx-bx-Btbxa with a 23 mm Lai 3 THV. [...] mg 90 mg Oral BID Mara Serrano ANURAG 90 mg at 05/18/23 0825 sodium chloride 0.9 % (flush) (BD PosiFlush Normal Saline 0.9) flush 5 mL 5 mL Intravenous BID Mara Serrano ANURAG 5 mL at 05/18/23 0831 sodium chloride 0.9 % (flush) (BD PosiFlush Normal Saline 0.9) flush 5-20 mL 5- 20 mL Intravenous Q1Min PRN MaggieMara APRN aspirin chewable tablet 81 mg 81 mg Oral Daily Mara SerranoANURAG 81 mg at 05/18/23 0826 ondansetron (pf) (Zofran) (2 mg/mL) injection 4 mg 4 mg Intravenous Q8H PRN Mara SerranoTOREYN4 mg at 05/12/23 0736 pantoprazole EC (Protonix) tablet 40 mg 40 mg Oral Daily Maggie MaraANURAG kay 40 mg at 05/18/23 0826 Or pantoprazole (Protonix) injection 40 mg 40 mg Intravenous Daily Mara SerranoANURAG 40 mg at 05/12/23 1004 senna-docusate (Pericolace) 8.6-50 mg per tablet 2 tablet 2 tablet Oral Daily Mara SerranoANURAG 2 tablet at 05/16/232111 bisacodyL (Dulcolax) suppository 10 mg 10 mg Rectal Daily PRN MaggieMara APRN melatonin tablet 6 mg 6 mg Oral Nightly PRN Corrie SerranoANURAG kay 6 mg at 05/17/232024 influenza vaccine [...] stenosis. She is now status post TAVR Pwwuc-ft-Qzdlt with a 23 mm Lai 3 THV 05/12/[address] Sharma. Janet TAVR case notable for coronary LAD protective MINNA. Status post TAVR, the patient was transferred to [facility] for pressor and inotropic support. Pressors weaned [...] Magdalena Puri APRN Structural Heart Team Pager [phone] Team Office Please see addendum by Dr. Sharma for final plan and recommendations Associated attestation - Antelmo Sharma MD - 05/19/2023 10:52 PM EDT I have reviewed Magdalena Puri APRN's above history and I agree with the details as written. The assessment and plan were formulated in discussion with me and I agree with them as documented. Antelmo Sharma MD Pager [phone] * Nico Palacios PA - 05/18/2023 8:13 [...] 0600 and on the weekends please page [phone]. * Loli Hernandez, PT - 05/17/2023 5:27 [...] plan as stated. Time IN / OUT: 1942-5193 Total Minutes, Physical Therapy: 54 Billing Code: te-sx2, te-f, angely HERNANDEZ PT Pager: [phone] Physical Therapy Inpatient Rehabilitation Department * Cynthia [...] Well controlled. Cynthia Blackburn MD Nephrology Pager: [phone] * Maggie, Mara, ANURAG - 05/17/2023 8:26 AM EDT Cardiac [...] 0600 and on the weekends please page [phone]. * CurtistierneymeccaGuerda C - 05/16/2023 10:44 AM EDT Nutrition Services Note - Low Nutrition Acuity Purnima Thacker is a 67 y.o. female Reason for intervention: hospital day 9 Nutrition Plan: Continue diet order Encourage good PO Lasix and Zofran noted Added special serve: open containers Monitor weight Patient scheduled for a hospital day 9 nutrition evaluation. Boiler House Supervisor met with pt at bedside. Pt reports that her appetite and PO has much improved since admission. Denies nausea/vomiting or trouble chewing/swallowing. Boiler House Supervisor provided snack list but pt not interested in adding snacks at this time. Her only concern was that she is worried that she will eat too much which will cause too much pressure in her stomach. Boiler House Supervisor assured pt and suggested eating smaller [...] Bowel Movement: 05/10/23 Guerda Del Valle Manager Of Training And Development * Vinod Juárez PA - 05/16/2023 10:19 [...] 0600 and on the weekends please page [phone]. * Michael Jeffers MD - 05/16/2023 8:11 AM EDT Images from the original note were not included. Hypertension-Nephrology Inpatient Follow-up Purnima Thacker [id number] 1955 ID: 67 y.o. old female seen [...] IRONSAT 12 (L) 05/16/2023 SFOLATE >20.0 07/03/2022 [id number] 07/03/2022 Lab Results Component Value Date [...] Dr. Ayoub. Please contact me at phone: [phone] or pager: [phone] with any questions. Michael Jeffers MD Nephrology [...] -Nephrology consulted, labs and renal US ordered -Oglesby removed, ambulated around the unit -bilateral pleural [...] 0600 and on the weekends please page [phone]. * Hortencia Cody MD - 05/15/2023 2:07 [...] -- Last Ca, Mg, Phos Recent Labs 05/15/230 05/09/23 0400 05/08/23 1600 CALCIUM 8.9 < [...] 05/10/23399 78.1 kg (172 lb 1.6 oz) 05/09/236 78.4 kg (172 lb 14.4 oz) 05/09/23399 [...] not included. Hypertension-Nephrology Inpatient Follow-up Purnima Thacker [id number] 1955 ID: 67 y.o. old female seen [...] HGB 7.8 (L) 05/13/2023 SFOLATE >20.0 07/03/2022 [id number] 07/03/2022 Lab Results Component Value Date [...] Dr. Ayoub. Please contact me at phone: [phone] or pager: [phone] with any questions. Michael Jeffers MD Nephrology [...] last 720 hours. T/L/D Art ETT CVL Duarte ASSESSMENT, MANAGEMENT, and DECISION MAKIN y.o. female [...] and weak.?? Objective: Pt seen in the CV for initial evaluation. Pt in chair at [...] outlined inthis evaluation. HAVEN BA, PT Pager: [phone] Physical Therapy Inpatient Rehabilitation Department Time IN / OUT: 1008-3942 Total time: Total Minutes, Physical Therapy: 30 [...] b/l, no evidence of hematoma. Tubes/Lines/Drains: RIJc, Art, PIV Assessment/Plan: 67 y.o. female 2 [...] 0600 and on the weekends please page [phone]. * Antelmo Sharma MD - 05/14/2023 7:56 AM EDT Images from the original note were not included. [facility] [address] [place], [place] [address] STRUCTURAL HEART DISEASE CONSULTATION NOTE PRIMARY CARE [...] stenosis. She is now status post TAVR Asugt-sp-Zrotr with a 23 mm Lai 3 THV 05/12/[address] Sharma. Preliminary findings: Successful right transfemoral TAVR Cyexw-hd-Nvhev with a 23 mm Lai 3 THV. [...] stenosis. She is now status post TAVR Avcay-cf-Vbnwx with a 23 mm Lai 3 THV 05/12/[address] Sharma. Janet TAVR case notable for coronary LAD protective MINNA. Status post TAVR, the patient was transferred to [facility] for pressor and inotropic support. Pressors weaned [...] Brody Kaplan APRN Structural Heart Team Pager [phone] Team Office Please see addendum by Dr. [...] exposure. Nephrology consultationtoday. Antelmo Sharma MD Pager [phone] * Antelmo Cardenas RN - 05/14/2023 5:18 AM EDT Pt AOx4, complaining of mild/moderate generalized pain (states her Meloxicam is effective at home) currently refusing prn oxycodone. NAEON, hemodynamically stable on Milrinone, Maps >65, ST in ufb228's down to NSR with frequent multifocal PVC's. [...] included. [facility] [place] [address] [address] STRUCTURAL HEART DISEASE PROGRESS NOTE PRIMARY CARE [...] stenosis. She is now status post TAVR Hovia-ov-Sidhe with a 23 mm Lai 3 THV 05/12/[address] Sharma. Preliminary findings: Successful right transfemoral TAVR Zlqjh-wp-Mbzdq with a 23 mm Lai 3 THV. [...] or perforation. Interval Events: - Transferred to [facility] post- TAVR [...] stenosis. She is now status post TAVR Vfiak-ha-Conrs with a 23 mm Lai 3 THV 05/12/[address] Sharma. Janet TAVR case notable for coronary LAD protective MINNA. Status post TAVR, the patient was transferred to [facility] for pressor and inotropic support. Pressors weaned [...] Brody Kaplan APRN Structural Heart Team Pager [phone] Team Office Please see addendum by Dr. [...] DAPT moving forward. Antelmo Sharma MD Pager [phone] * KaBonita stewart PA - 05/13/2023 8:30 AM EDT Cardiac Surgery Progress Note Purnima Thacker is a 67 y.o. 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 PMH of s/p tissue AVR (2017), mixed connective tissue disease HTN, HLD, NICOLAS, diverticulosis, rosacea, essential tremor, and depression. 24h Events: From union laborer for above procedure Extubated at ~1600 [...] soft b/l, no evidence of hematoma. Tubes/Lines/Drains: Oglesby, RIJ, A-line, Art, PIV Assessment/Plan: 67 y.o. [...] 0600 and on the weekends please page [phone]. * Onelia Schwartz MD - 05/12/2023 1:44 [...] FiO2 weaned to 40%. 1105: ABG 7.34/42/73/22 4434-5015: SBT performed and passed on these settings [...] PCP: Magdalena Acosta MD PCP phone number: [phone] Date of Admission: 05/08/2023 ( Hospital Day [...] (05/12/23 0120) [SEP Hold] NORepinephrine 6 mcg/min (05/12/23641) Ventilator Settings: Mode: , SET RR: TV: PEEP: FiO2: VARIABLES PATIENT RR: PIP: Pplateau: SpO2: OUTPUT Resp: (!) 31 SpO2: 94 % ABG (Arterial Blood Gas) Recent Labs 05/12/23 0705/12/2331705/12/2310505/11/23193905/11/231446 PHART -- 7.34* 7.34* -- -- RCS6SXY -- 30* 30* -- -- PO2ART -- 72* 81* -- -- BJT8IJV -- 16.0* 15.7* -- -- LACTATEVEN 2.4* 2.7* 2.7* 4.8* 2.9* VBG (Venous Blood Gas) Recent Labs 05/12/23 0700 05/12/2331705/12/2310505/11/23193905/11/231446 LACTATEVEN 2.4* 2.7* 2.7* 4.8* 2.9* Mixed Venous Sat Recent Labs 05/12/23 0508 05/12/23 0321 05/12/23 0114 05/12/23 0030 C2DWTL8 30.7 32.7 37.3 25.1 Objective: Vitals Last [...] 05/11/231999 Patency/Maintenance infusing 05/11/231999 Phlebitis 0-->no symptoms 05/12/23 06 Infiltration 0-->no symptoms 05/12/23599 Site Signs/Symptoms no [...] have questions please contact the health rn transitional care that requested your imaging first. Electronically signed by: ALIX RUVALCABA MD, [facility] ([phone]), at 05/10/2023 1:[address] Cardiac for [...] have questions please contact the health rn transitional care that requested your imaging first. Electronically signed by: Cullen Narayanan MD, [facility] ([phone]), at 05/11/2023 4:[address] Angiogram Abdomen [...] have questions please contact the health rn transitional care that requested your imaging first. Electronically signed by: Eileen Gomes MD, [facility] ([phone]), at 05/11/2023 2:42 PM XR Chest One [...] have questions please contact the health rn transitional care that requested your imaging first. Chest [...] have questions please contact the health rn transitional care that requested your imaging first. Assessment [...] and inotrope. She is planned for a hcezx-bv-luujg TAVR this morning, which should hopefully improve [...] Section of Cardiovascular Medicine [facility] Dough Puncherpulley worker [facility] at [facility] * Noreen Deutsch RN - 05/12/2023 [...] physicians or advanced practice providers. * Shari Ramos, RN - 05/11/2023 4:11 PM EDT Reported off to SYSTEMS MECHANIC and pt transferred over in the bed for higher level of care. * Antelmo Sharma MD - 05/11/2023 9:45 AM EDT Images from the original note were not included. [place] [facility] [place] [phone] STRUCTURAL HEART DISEASE CONSULTATION NOTE PRIMARY CARE [...] who had been referred for possible TAVR tmyle-gi-qtktr evaluation. Her primary symptoms are of dyspnea [...] [facility]. 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 [...] 81 mg 81 mg Oral Daily Klaudia eRid MD 81 mg at 05/11/23 0834 atorvastatin [...] hour(s)) Lactate, whole blood, send to lab ([facility]) Result Value Ref Range Lactate WB 3.1 (H) 0.5 - 2.2 mmol/L Heparin (unfractionated) Level Result Value Ref Range Heparin UFH Level 0.46 IU/mL Lactate, whole blood, send to lab ([facility]) Result Value Ref [...] leads Confirmed by MD Harshil, Enrique Bell ([id number]) on 05/10/2023 8:11:46 AM Cardiac Cath 11/09/2022 [...] Brody Kaplan APRN Structural Heart Disease Pager [phone] Please see addendum by Dr. Sharma for [...] signed and dated. Antelmo Sharma MD Pager [phone] * Harini Lance MD - 05/11/2023 6:06 AM EDT Images from the original note were not included. Cardiology Progress Note Patient info: Name: Purnima Thacker : 1955 PCP: Magdalena Acosta MD PCP phone number: [phone] Date of Admission: 05/08/2023 ( Hospital Day [...] have questions please contact the health rn transitional care that requested your imaging first. Electronically signed by: ALIX RUVALCABA MD, [facility] ([phone]), at 05/10/2023 1:25 PM TTE: 05/08 -Left [...] PCP: Magdalena Acosta MD PCP phone number: [phone] Date of Admission: 05/08/2023 ( Hospital Day [...] as below which reflects our discussion. * aHrini Lance MD - 05/09/2023 7:46 AM EDT Images from the original note were not included. Cardiology Progress Note Patient info: Name: Purnima Thacker : 1955 PCP: Magdalena Acosta MD PCP phone number: [phone] Date of Admission: 05/08/2023 ( Hospital Day [...] Gas) No results found for: PHART, PO2ART, XBH3CAW, WVV9DXQ Microbiology: Microbiology Results (Last 30 days) No [...] PPx: Diet: Daily Healthy Menu Choices/Cardiac diet ([facility]-Diet) Lines: Peripheral IV Line [...] Surgical History: Procedure Laterality Date PRG CATH [facility] LEFT HEART CATH & ARTS W/INJ [...] Hgb 10.5 CMP - Cr 1.1 BNP 94129 HsTrop 1358 Lactate 1.6 D-dimer 1183 Interval History Patient was admitted to CV due to concern on low BP iso [...] Klaudia Reid MD Internal Medicine PGY-1 Pager [phone], M1-S1 Service Associated attestation - Juan Luis [...] PCP: Magdalena Acosta MD PCP phone number: [phone] Date of Admission: 05/08/2023 ( Hospital Day [...] Hgb 10.5 CMP - Cr 1.1 BNP 61685 HsTrop 1358 Lactate 1.6 D-dimer 1183 Vasoactive [...] #Routine Diet: Daily Healthy Menu Choices/Cardiac diet ([facility]-Diet) DVT Prophylaxis: heparin gtt [...] to the planned procedure. Hand Hygiene: The vice president of operations did perform hand hygiene prior to arterial [...] Successful arterial line placement. Crispin Timmons MD Moisture Machine Tender Associated attestation - Onelia Schwartz MD - [...] (flow was non-pulsatile) and appearance of blood. Oglesby-Marily catheter was placed and locked at 55 [...] information for follow-up [facility], [place] [address] [place] [address] Cardiac Rehab, [address] [place] [address] [facility], [place] [address] [place] [address] Transportation: family or friend will provide *Brother [...] Type: *No Product type* / Secondary Insurance: [facility] [place] Prescription Coverage: Yes This plan was formulated with input from patient, family (please identify family/friend involved ifapplicable) and team. All are in agreement with plan. Aliza Martino MSN-Ed, RN ACM cloud systems architect Office of Care Management Pager #[phone] * Plan of Care - Favian Mckeon [...] Chaudhary RN - 05/21/2023 4:46 PM EDTSummary: [facility] referral OFFICE OF CARE MANAGEMENT [...] Type: *No Product type* / Secondary Insurance: [employer] [place] Last Physical Therapy Recommendation: (Home with [...] geographic area. They have requested referrals to: [facility] [address] [place] [address] Ortho Care Located @ [place], [place] Note routed to a Water/Wastewater Engineer who will communicate referrals to facilities and provide any required information. Transportation: family or friend will provide *Brother Raymond on Tuesday 05/22 at 1000 Barriers to discharge: Does not have home 22/02 assist available until tomorrow Tuesday 05/22 Plan going forward: Discharge home into the 22/02 home care of [facility]OT services on Tuesday 05/22 [...] Attending: All Staff: Staff Role Juanita Almaguer Parking Attendant Laure Ricks PA Physician Deaf Interpreter Magdalena Rodriguez registration representative Nurse Consuelo Espinoza registration representative Nurse Post-operative diagnosis/Indication: Right pleural effusion Name [...] Product type* / Secondary Insurance: [facility] [place] Last Physical Therapy Recommendation: fdc facility, [...] to: discuss discharge planning needs. provide the [facility], Office of Care Management letter from the Wire Stockkeeper pertaining to rehab referrals. provide a letter describing our affiliations within the [facility] and educate about their right to choose where referrals are sent. provide the CMS Star Quality Rating handout. review the different levels of rehab including SNF, swing, and acute. provide a list of facilities within their preferred geographic area. request that they provide at least three choices for referral. They have requested referrals to: [facility] [address] [place] [address] [facility] ([facility]) [address] [place] [address] (Accepts pts only after exhausting all other local SNF options) [facility] (Swing) ([facility]) [address] [place] [address] PHONE: [phone] FAX: [phone] [facility] (Swing) [facility]) [address] [place] [address] PHONE: [phone] FAX: [phone] Note routed to a Water/Wastewater Engineer who will communicate referrals to facilities [...] Crenshaw RN - 05/17/2023 10:25 AM EDT [facility] CARDIAC REHABILITATION Purnima Thacekr was seen today regarding participation in the [...] in her course. She ultimately underwent a ejmuk-ck-fmxzp procedure on and tolerated it well (see operative details). [facility] int[facility]ated and sedated on some pressors support.. [...] LABS: CBC: Recent Labs 05/14/23 0110 05/13/23 0115 05/12/23 1405 05/12/23 0105 WBC 11.2* 8.6 -- [...] 1423 05/12/23 1105 PHART 7.39 7.37 7.34* [id number] 33* 36 42 PO2ART 101 102 73* IBP5NGL 19.5* 20.4 22.1 LACTATEVEN 1.5 1.8 2.8* HXZ6JYC 40 40 40 PFRATIOART2 252 255 182 VBG (Venous Blood Gas) Recent Labs 05/12/23 1557 05/12/23 1423 05/12/23 1105 LACTATEVEN 1.5 1.8 2.8* Mixed Venous Sat Recent Labs 05/12/23 1425 05/12/23 0508 05/12/23 0321 R2TLCR4 59.9 30.7 32.7 LFT's: Recent Labs 05/14/23 0110 05/13/23 0115 05/12/23 0600 BILITOT 0.4 0.5 0.9 BILIDIR -- 0.3 -- ALBUMIN 3.6 3.0* 3.5 ALKPHOS 86 85 100 ALT 437* 903* 1,174* AST 319* 792* 1,435* No results found for: UPROTCREAT No results found for: TPROTEINPEP, ALBELECT No results found for: MICROALBUR, MHFG39VNV No results found for: HA1C Lab Results Component Value Date CALCIUM 8.5 05/14/2023 PHOS 4.7 (H) 05/08/2023 No results found for: 25OHVITD MICROBIOLOGY: ProcedureComponentValueUnitsDate/TimeUrine culture [[id number]]Collected: 05/11/231921Lab Status: Final resultSpecimen: Clean Catch UrineUpdated: [...] consulted for assessment if this patient needs CUFF CUTTER. Atthis time, we can likely hold off on CUFF CUTTER. Her volume status appears sufficient and her metabolic kanwal angements with mild acidosis is not too profound. Patient does not have significant uremic symptoms. We can hold off for today, but the patient is a high risk candidate for needing CUFF CUTTER in future daysespecially if her Cr curve trends the direction it is for the next several days. S/p Vikrj-nb-Korfq TF TAVR: Management per cardiology. On milrinone gtt. PLAN: - Please obtain following diagnostics: renal US, urinalysis, urine prot/Cr ratio, urine albumin/Cr ratio, CK, uric acid, serum osmol, daily VBGs - No acute indications for CUFF CUTTER/dialysis. We will keep close eye on Cr trend, volume status, and metabolics to ensure patient still does not need CUFF CUTTER as she ensues intrinsic renal recovery - [...] M.H.Katherine., M.A. PGY-V Nephrology-Hypertension Fellow Page # [phone] [facility] [address] 2nd floor, Tare Weigher [address] [place] [address] * Care Management - Mario Alberto Olmos [...] [MAR Hold] vasopressin 0.08 Units/min (05/12/23 0600) [MAR Hold] milrinone 0.375 mcg/kg/min (05/12/23 0600) [MAR Hold] DOBUTamine Stopped (05/12/23 0120) [...] for a TAVR at 730. Returned to [facility] at 0945. Was intubated in the union laborer due to agitation. Maintained bedrest for [...] Operative Note Patient Name: Purnima Thacker : [id number] MR#: [id number] Case Date: 05/12/2023 Surgeon: Surgeon(s) and Role: [...] procedure Note: Patient Name: Purnima Thacker : [id number] MR#: [id number] Case Date: 05/12/2023 Operators Surgeon: Surgeon(s) and [...] main with 4.0 x 30 mm Resolute Starr Drug Eluting Stent Perclose x1 + Angio-seal 8 Fr x1, RFA Manual pressure, LFA Manual pressure, LFV Endotracheal intubation (performed by cardiac anesthesia) Preliminary findings: Successful right transfemoral TAVR Cvrra-zs-Jsgls with a 23 mm Lai 3 THV. [...] MD, M.Sc. Structural Heart Disease Fellow Pager :[phone] Antelmo Sharma MD Pager [phone] * Op Note - Alirio Hudson MD - 05/12/2023 7:37 AM EDT Preop Diagnosis: Severe aortic stenosis, symptomatic. Postop Diagnosis: Same. Procedure: Transfemoral TAVR procedure with 23mm valve. Surgeon: Alirio Hudson M.D. Drier Operator Helper: Danny CULP Procedure: The patient was taken to the union laborer. The patient had monitored anesthesia care. 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 [facility] [place] [address] STRUCTURAL HEART DISEASE CONSULTATION NOTE PRIMARY CARE [...] who had been referred for possible TAVR ectiz-dw-aniti evaluation. Her primary symptoms are of dyspnea [...] [facility]. 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 Hudson of her inpatient status, [place] primary cardiac surgeon. Based on recent clinic [...] Antelmo Sharma MD Structural Heart Disease Pager [phone] * Plan of Care - Sarahi Nice [...] VTE (Venous Thromboembolism) Risk Flowsheets (Taken 05/09/2023 7606) VTE Prevention/Management: anticoagulant therapy Intervention: Prevent Infection [...] listening utilized Taken 05/08/20231999 by Alivia Kauffman, international trade teacher/Support System Care: self-care encouraged support provided Problem: [...] Appropriate) Intervention: Optimize Functional Ability Flowsheets (Taken 05/10/2023199) Activity Management: activity encouraged Self-Care Promotion: BADL [...] receiving care in [place] must abide by [place] law. The hierarchy [...] confirmed as: [address] [facility] [address] Social & Family Supports: All names listed [...] Product type* / Secondary Insurance: [facility] [place] ONLY if patient has Medicare A&B - Does this patient have secondary insurance?: Yes ; Prescription Coverage: Yes Preferred Pharmacy: updated to [facility] Status: Patient is a : No Primary Care Provider confirmed: Magdalena Acosta MD [phone] Patient/Caregiver Goals of Treatment: Potential Needs for [...] transition of care planning. Alie Bradshaw RN, Pager-[phone] * Plan of Care - Emily Lucero [...] 10:00 AM EDT Office [place] [address] Magdalena Peralta MD [facility] [place] [address] 06/05/2024 2:00 PM EST Hospital Encounter [facility] [place] [address] Markel Borjas MD [facility] [address] HEMATOLOGY [place] [address] 06/05/2024 2:00 PM EST - 06/05/2024 3:00 PM EST Surgery [facility] [place] [address] Markel Borjas MD [facility] DR HEMATOLOGY [place] [address] (OSC MSURG) BONE MARROW BIOPSY AND ASPIRATION; DIAGNOSTIC (WRVU 1.44) 06/23/2024 2:00 PM EST Office Visit Hematology [place] [phone] Markel Borjas MD [facility] [address] HEMATOLOGY [place] [address] 03/01/2025 4:15 PM EDT Office Visit Dermatology at [place] [address] [facility] [address] [facility] [place] [phone] Marek Bonilla MD [address], [place] [address] Scheduled Procedures Name Priority Associated Diagnoses Date/Ti [...] Heart Cath W/Inj L Ventriculography, Img S&I ([id number]) 05/12/2023 7:37 AM EDT Aortic valve stenosis, [...] (07/08/2023 12:15 PM EST) [facility] EF 20 HEARTLAB SYSTEM Anatomical Region Laterality Modality Cardiac Other 07/08/2023 10:3 1 AM EST Narrative 07/08/2023 12:26 PM EST [address] [place] [address] ? Echocardiogram Report Name: PURNIMA THACKER ?Study Date: 07/08/2023 10:31 AMBP: 118/60 mmHg ? [facility] 1955 ? Height: 155 cm ? Account: [id number] Age: 67 yrs ? Weight: 74 kg [...] no significant change (post-procedure). Procedure Limited - 77050. Doppler - 95758. Color Doppler - 43675. Satisfactory quality. This study is limited because [...] Note Lee Kincaid MD - 07/08/2023 [address] [place] [id number] Echocardiogram Report Name: PURNIMA THACKER Study Date: 310:31 AMBP: 118/60 mmHg Patient Location: : 1955 Height: 155 cm Account: [id number] Age: 67 yrs Weight: 74 kg Gender: [...] is nosignificant change (post-procedure). Procedure Limited - 70646. Doppler - 71093. Color Doppler - 04186. Satisfactoryquality. This study is limited because of [...] 93 65 - 199 mg/dL [facility] Comment:Diabetes: >=200 mg/d L plus symptoms Blood Urea Nitrogen 19(H) 8 - 18 mg/dL [facility] Creatinine 0.81 0.70 - 1.20 mg/dL [facility] Sodium 142 135 - 145 mmol/L [facility] Potassium 3.8 3.5 - 5.0 mmol/L [facility] Comment: Please note: ??Patients with WBC >100,000 may have falsely elevated Potassium levels. ??For accurate Potassium quantification in these patients send serum separator tube (gold top) for subsequent determinations. ??Contact the Clinical Chemistry Laboratory if there are any questions. Chloride 104 98 - 107 mmol/L [facility] Carbon Dioxide 26 22 - 31 mmol/L [facility] Anion Gap 12 5 - 15 mmol/L [facility] Calcium 10.2 8.5 - 10.5 mg/dL [facility] Protein, Total 7.4 6.1 - 8.0 g/dL [facility] Albumin 4.1 3.2 - 5.2 g/dL [facility] Aspartate Aminotransferase 24 0 - 30 unit/L [facility] Alanine Aminotransferase 12 0 - 30 unit/L [facility] Alkaline Phosphatase 93 35 - 105 unit/L [facility] Bilirubin, Total 0.3 0.2 - 1.3 mg/dL [facility] Est Glomerular Filtration Rate 80 >=60 mL/min/1. 73 m?? [facility] Comment: This patient's estimated [...] City/State/[facility] Co de Phone Number [facility] [address] * (ABNORMAL) Basic Metabolic Panel (non-fasting) (05/22/2023 3:57 AM EDT) Glucose 88 65 - 199 mg/dL [facility] Comment:Diabetes: >=200 mg/d L plus symptoms Blood Urea Nitrogen 21(H) 8 - 18 mg/dL [facility] Creatinine 0.69(L) 0.70 - 1.20 mg/dL [facility] Sodium 136 135 - 145 mmol/L [facility] Potassium 3.6 3.5 - 5.0 mmol/L [facility] Comment: Please note: ??Patients with WBC >100,000 may have falsely elevated Potassium levels. ??For accurate Potassium quantification in these patients send serum separator tube (gold top) for subsequent determinations. ??Contact the Clinical Chemistry Laboratory if there are any questions. Chloride 102 98 - 107 mmol/L [facility] Carbon Dioxide 23 22 - 31 mmol/L [facility] Anion Gap 11 5 - 15 mmol/L [facility] Calcium 8.6 8.5 - 10.5 mg/dL [facility] Est Glomerular Filtration Rate 95 >=60 mL/min/1. 73 m?? [facility] Comment: This patient's estimated [...] Agency Comment Spec In Lab Mara Serrano VESSEL SPECIALIST CHEMISTRY ORDERABL ES [facility] [address] * (ABNORMAL) Basic Metabolic Panel (non-fasting) (05/21/2023 5:06 AM EDT) Glucose 87 65 - 199 mg/dL [facility] Comment:Diabetes: >=200 mg/d L plus symptoms Blood Urea Nitrogen 25(H) 8 - 18 mg/dL [facility] Creatinine 0.84 0.70 - 1.20 mg/dL [facility] Sodium 136 135 - 145 mmol/L [facility] Potassium 3.6 3.5 - 5.0 mmol/L [facility] Comment: Please note: ??Patients with WBC >100,000 may have falsely elevated Potassium levels. ??For accurate Potassium quantification in these patients send serum separator tube (gold top) for subsequent determinations. ??Contact the Clinical Chemistry Laboratory if there are any questions. Chloride 102 98 - 107 mmol/L [facility] Carbon Dioxide 26 22 - 31 mmol/L [facility] Anion Gap 8 5 - 15 mmol/L [facility] Calcium 8.9 8.5 - 10.5 mg/dL [facility] Est Glomerular Filtration Rate 76 >=60 mL/min/1. 73 m?? [facility] Comment: This patient's estimated [...] ANURAG CHEMISTRY ORDERABL ES Performing Organization Address [facility] Co de Phone Number [facility] [address] * Lavender Tube HOLD (05/20/2023 2:52 AM EDT) Lavender Hold Sample in lab. [facility] Blood Venous Draw / Unknown 05/20/2023 2:52 AM EDT 05/20/2023 3:04 AM EDT Mara Thomasfield VESSEL SPECIALIST HEMATOLOGY ORDERAB LES Performing Organization Address [facility] Co de Phone Number [facility] [address] * (ABNORMAL) Basic Metabolic Panel (non-fasting) (05/20/2023 2:52 AM EDT) Glucose 152 65 - 199 mg/dL [facility] Comment:Diabetes: >=200 mg/d L plus symptoms Blood Urea Nitrogen 33(H) 8 - 18 mg/dL [facility] Creatinine 0.82 0.70 - 1.20 mg/dL [facility] Sodium 137 135 - 145 mmol/L [facility] Potassium 3.7 3.5 - 5.0 mmol/L [facility] Comment: Please note: ??Patients with WBC >100,000 may have falsely elevated Potassium levels. ??For accurate Potassium quantification in these patients send serum separator tube (gold top) for subsequent determinations. ??Contact the Clinical Chemistry Laboratory if there are any questions. Chloride 99 98 - 107 mmol/L [facility] Carbon Dioxide 22 22 - 31 mmol/L [facility] Anion Gap 16(H) 5 - 15 mmol/L [facility] Calcium 9.0 8.5 - 10.5 mg/dL [facility] Est Glomerular Filtration Rate 78 >=60 mL/min/1. 73 m?? [facility] [...] Agency Comment Spec In Lab Mara Thomasfield VESSEL SPECIALIST CHEMISTRY ORDERABL ES Performing Organization Address [facility] de Phone Number [facility] [address] * (ABNORMAL) Potassium (05/20/2023 2:52 AM EDT) [facility] Signature Potassium 3.4(L) 3.5 - 5.0 mmol/L [facility] [...] Agency Comment Spec In Lab Mara Thomasfield VESSEL SPECIALIST CHEMISTRY ORDERABL ES Performing Organization Address [facility] Co de Phone Number [facility] [address] * XR Chest PA & Lateral (Generic) [...] have questions please contact the health rn transitional care that requested your imaging first. ? Electronically signed by: Chyna Johnson MD, [facility] ??([phone]), at 05/19/2023 2:19 PM Narrative 05/19/2023 2:19 [...] who have questions please contactthe health rn transitional care that requested your imaging first. Electronically signed by: Chyna Johnson MD, [facility]([phone]), at 05/19/2023 2:19 PM Alirio Hudson MD IMG DX ORDERABLES * (ABNORMAL) Basic Metabolic Panel (non-fasting) (05/19/2023 5:49 AM EDT) Glucose 93 65 - 199 mg/dL [facility] Comment:Diabetes: >=200 mg/d L plus symptoms Blood Urea Nitrogen 45(H) 8 - 18 mg/dL [facility] Creatinine 1.02 0.70 - 1.20 mg/dL [facility] Sodium 138 135 - 145 mmol/L [facility] Potassium 3.9 3.5 - 5.0 mmol/L [facility] Comment: Please note: ??Patients with WBC >100,000 may have falsely elevated Potassium levels. ??For accurate Potassium quantification in these patients send serum separator tube (gold top) for subsequent determinations. ??Contact the Clinical Chemistry Laboratory if there are any questions. Chloride 102 98 - 107 mmol/L [facility] Carbon Dioxide 26 22 - 31 mmol/L [facility] Anion Gap 10 5 - 15 mmol/L [facility] Calcium 9.7 8.5 - 10.5 mg/dL [facility] Est Glomerular Filtration Rate 60 >=60 mL/min/1. 73 m?? [facility] Comment: This patient's estimated [...] Agency Comment Spec In Lab Mara Serrano VESSEL SPECIALIST CHEMISTRY ORDERABL ES [facility] [address] * IR Chest Tube Placement Right (05/18/2023 [...] Kristopher Salgado MD 05/18/2023 Alirio Hudson MD [facility] IR ORDERABLES * (ABNORMAL) Basic Metabolic Panel (non-fasting) (05/18/2023 2:54 AM EDT) Glucose 95 65 - 199 mg/dL [facility] Comment:Diabetes: >=200 mg/d L plus symptoms Blood Urea Nitrogen 71(H) 8 - 18 mg/dL [facility] Comment:result rechecked-JSJ Creatinine 1.64(H) 0.70 - 1.20 mg/dL [facility] Comment:result rechecked-JSJ Sodium 137 135 - 145 mmol/L [facility] Potassium 3.7 3.5 - 5.0 mmol/L [facility] Comment: Please note: ??Patients with WBC >100,000 may have falsely elevated Potassium levels. ??For accurate Potassium quantification in these patients send serum separator tube (gold top) for subsequent determinations. ??Contact the Clinical Chemistry Laboratory if there are any questions. Chloride 100 98 - 107 mmol/L [facility] Carbon Dioxide 24 22 - 31 mmol/L [facility] Anion Gap 13 5 - 15 mmol/L [facility] Calcium 9.7 8.5 - 10.5 mg/dL [facility] Est Glomerular Filtration Rate 34(L) >=60 mL/min/1. 73 m?? [facility] Comment: This patient's estimated [...] Lab Mara Serrano APRN CHEMISTRY ORDERABL ES [facility] [address] * XR Chest PA & Lateral (Generic) [...] have questions please contact the health rn transitional care that requested your imaging first. ? Electronically signed by: Ghassan Reyes MD, [facility] ??([phone]), at 05/17/2023 11:46 AM Narrative 05/17/2023 11:46 [...] who have questions please contactthe health rn transitional care that requested your imaging first. Electronically signed by: Ghassan Reyes MD, [facility]([phone]), at 05/17/2023 11:46 AM Alirio Hudson MD IMG DX ORDERABLES * (ABNORMAL) Comprehensive metabolic panel (non-fasting) (05/17/2023 4:35 AM EDT) Glucose 89 65 - 199 mg/dL [facility] Comment:Diabetes: >=200 mg/d L plus symptoms Blood Urea Nitrogen 97(H) 8 - 18 mg/dL [facility] Creatinine 2.97(H) 0.70 - 1.20 mg/dL [facility] Comment:result rechecked-JSJ Sodium 135 135 - 145 mmol/L [facility] Potassium 4.1 3.5 - 5.0 mmol/L [facility] Comment: Please note: ??Patients with WBC >100,000 may have falsely elevated Potassium levels. ??For accurate Potassium quantification in these patients send serum separator tube (gold top) for subsequent determinations. ??Contact the Clinical Chemistry Laboratory if there are any questions. Chloride 97(L) 98 - 107 mmol/L [facility] Carbon Dioxide 22 22 - 31 mmol/L [facility] Anion Gap 16(H) 5 - 15 mmol/L [facility] Calcium 9.6 8.5 - 10.5 mg/dL [facility] Protein, Total 6.5 6.1 - 8.0 g/dL [facility] Albumin 3.7 3.2 - 5.2 g/dL [facility] Aspartate Aminotransferase 58(H) 0 - 30 unit/L [facility] Alanine Aminotransferase 66(H) 0 - 30 unit/L [facility] Alkaline Phosphatase 86 35 - 105 unit/L [facility] Bilirubin, Total 0.6 0.2 - 1.3 mg/dL [facility] Est Glomerular Filtration Rate 17(L) >=60 mL/min/1. 73 m?? [facility] Comment: This patient's estimated [...] Hudson MD CHEMISTRY ORDERABLE S [facility] [address] * Potassium (05/16/2023 11:15 PM EDT) Potassium 3.7 3.5 - 5.0 mmol/L [facility] Comment: Please note: ??Patients [...] MD CHEMISTRY ORDERABLE S Performing Organization Address City/[facility]/ZIP Co de Phone Number [facility] [address] * Magnesium (05/16/2023 5:22 PM EDT) Magnesium 0.96 0.69 - 1.07 mmol/L [facility] Blood 05/16/2023 5:22 PM EDT 05/16/2023 5:27 PM EDT Narrative Resulting Agency Comment Spec In Lab Alirio Hudson MD CHEMISTRY ORDERABLE S Performing Organization Address [facility] Co de Phone Number [facility] [place] [address] * (ABNORMAL) Basic Metabolic Panel (non-fasting) (05/16/2023 5:22 PM EDT) Glucose 106 65 - 199 mg/dL [facility] Comment:Diabetes: >=200 mg/d L plus symptoms Blood Urea Nitrogen 103(H) 8 - 18 mg/dL [facility] Creatinine 3.91(H) 0.70 - 1.20 mg/dL [facility] Comment:result rechecked-imm Sodium 132(L) 135 - 145 mmol/L [facility] Potassium 3.6 3.5 - 5.0 mmol/L [facility] Comment: Please note: ??Patients with WBC >100,000 may have falsely elevated Potassium levels. ??For accurate Potassium quantification in these patients send serum separator tube (gold top) for subsequent determinations. ??Contact the Clinical Chemistry Laboratory if there are any questions. Chloride 92(L) 98 - 107 mmol/L [facility] Carbon Dioxide 22 22 - 31 mmol/L [facility] Anion Gap 18(H) 5 - 15 mmol/L [facility] Calcium 9.7 8.5 - 10.5 mg/dL [facility] Est Glomerular Filtration Rate 12(L) >=60 mL/min/1. 73 m?? [facility] [...] MD CHEMISTRY ORDERABLE S Performing Organization Address [facility] Co de Phone Number [facility] [address] * (ABNORMAL) Potassium (05/16/2023 11:43 AM EDT) Potassium 3.3(L) 3.5 - 5.0 mmol/L [facility] Comment: Please note: ??Patients [...] MD CHEMISTRY ORDERABLE S Performing Organization Address [facility] Co de Phone Number [facility] [address] * (ABNORMAL) Ferritin (05/16/2023 4:41 AM EDT) Ferritin 1,813(H) 30 - 400 ng/mL [facility] Comment: Pediatric reference ranges not verified at [facility], interpret with caution. Reference ranges for females greater than 50 years of age approach values for men, i.e., 30-400 ng/mL. Blood 05/16/2023 4:41 AM EDT 05/16/2023 4:54 AM EDT Narrative Resulting Agency Comment Spec In Lab Kristopher Ayoub MD CHEMISTRY ORDERABLES Performing Organization Address City/[facility] Co de Phone Number [facility] [address] * (ABNORMAL) PTH (05/16/2023 4:41 AM EDT) Parathyroid Hormone 120(H) 15 - 65 pg/mL [facility] Blood 05/16/2023 4:41 AM EDT 05/16/2023 4:54 AM EDT Narrative Resulting Agency Comment Spec In Lab Kristopher Ayoub MD CHEMISTRY ORDERABLES Performing Organization Address [facility] Co de Phone Number [facility] [address] * Vitamin D, 25-Hydroxy (05/16/2023 4:41 AM EDT) Vitamin D Total 25 OH 33 21 - 100 ng/mL [facility] Vit D Interp Sufficient [facility] Blood 05/16/2023 4:41 AM EDT 05/16/2023 4:54 AM EDT Narrative Resulting Agency Comment Spec In Lab Kristopher Ayoub MD CHEMISTRY ORDERABLES Performing Organization Address City/[facility] Co de Phone Number [facility] [address] * (ABNORMAL) Blood Gas Venous ([facility]) (05/16/2023 4:22 AM EDT) pH, Venous 7.41 7.32 - 7.42 [facility] PCO2, Venous 32(L) 41 - 51 mmHg [facility] PO2, Venous 73(H) 25 - 40 mmHg [facility] Bicarbonate, Venous 19.6 mmol/L [facility] Base Excess, Venous -5.1 mmol/L [facility] Hgb Blood Gas 9.7(L) 11.7 - 15.5 g/dL [facility] Oxyhemoglobin, Venous 92.8 % [facility] Carboxyhemoglob in, Venous 0.1 % [facility] Comment: Nonsmokers: 0.5-1.5% COHB Smokers: Variable, but usually less than 10% Toxic: 20-30% COHB Lethal: Greater than 60% COHB Methemoglobin, Venous 0.3 <=1.5 % [facility] Na Whole Blood 130(L) 135 - 145 mmol/L [facility] K Whole Blood 3.7 3.5 - 5.0 mmol/L [facility] Comment: Please note: Patients with WBC >100,000 may have falsely elevated Potassium levels. Contact the Clinical Chemistry Laboratory if there are any questions. ICa Whole Blood 1.15 1.15 - 1.33 mmol/L [facility] Comment: Note: ??Total bilirubin higher than 20 mg/dL may lead to falsely low ionized calcium. CL Whole Blood 95(L) 98 - 107 mmol/L [facility] Gluc Whole Bld 82 65 - 199 mg/dL [facility] Comment:Diabetes: >=200 mg/d L plus symptoms Lactate WB 1.1 0.5 - 2.2 mmol/L [facility] Blood Gas Source Venous [facility] Blood Venous Draw / Unknown 05/16/2023 4:22 AM EDT 05/16/2023 4:31 AM EDT Narrative Resulting Agency Comment Spec In Lab Bonita TOBAR CHEMISTRY ORDERABLES Performing Organization Address City/State/[facility] Co de Phone Number [facility] [address] * (ABNORMAL) Differential, Automated (05/16/2023 4:20 AM EDT) Neutrophil % 84.1 % [facility] Neutrophil Absolute 6.22(H) 1.70 - 6.10 x10(3)/mc L [facility] Lymph % 5.8 % [facility] Lymphocytes Abs 0.4(L) 0.9 - 3.2 x10(3)/mc L [facility] Monocyte % 8.8 % [facility] Monocyte Abs 0.6 0.3 - 0.9 x10(3)/mc L [facility] Eos % 0.4 % [facility] Eosinophils Abs 0.0 0.0 - 0.4 x10(3)/ L [facility] Basophil % 0.0 % [facility] Baso Absolute 0.0 0.0 - 0.1 x10(3)/ L [facility] Immature Gran % 0.90 % [facility] Comment: Immature granulocytes(IG's)percentage and absolute count will include metamyelocytes, myelocytes, and promyelocytes. Blood smears from CBCs yielding IG's will be scanned manually for concordance. If this scan disagrees with the automated IG or if promyelocytes are noted, a manual differential will be performed. Immature Gran Absolute 0.07(H) 0.00 - 0.04 x10(3)/ L [facility] Blood 05/16/2023 4:20 AM EDT 05/16/2023 4:29 AM EDT Narrative Resulting Agency Comment Spec In Lab James Agustin MD HEMATOLOGY ORDER JODIE [facility] [address] * (ABNORMAL) Hemogram (05/16/2023 4:20 AM EDT) White Blood Cell 7.4 4.0 - 9.5 x10(3)/mc L [facility] Red Blood Cell 2.40(L) 4.00 - 5.21 x10(6)/mc L [facility] Hemoglobin 7.8(L) 11.7 - 15.5 g/dL [facility] Hematocrit 22.5(L) 35.7 - 45.8 % [facility] Mean Cell Volume 93.8 82.6 - 94.4 fL [facility] Mean Cell Hemoglobin 32.5(H) 27.1 - 32.0 pg [facility] Mean Cell Hemoglobin Concentration 34.7 31.7 - 35.0 g/dL [facility] Platelet 120(L) 145 - 357 x10(3)/ L [facility] RDW Standard Deviation 42.9 37.0 - 46.0 fL [facility] RDW coefficient of variation 12.9 11.5 - 14.1 % [facility] Mean Platelet Volume 11.3 7.6 - 12.[address] [facility] NRBC% auto 0.7 % [facility] NRBC Absolute 0.050(H) 0.000 - 0.000 x10(3)/mc L [facility] Blood 05/16/2023 4:20 AM EDT 05/16/2023 4:29 AM EDT Narrative Resulting Agency Comment Spec In Lab James Agustin MD HEMATOLOGY ORDER JODIE [facility] [place] [address] * (ABNORMAL) Basic Metabolic Panel (non-fasting) (05/16/2023 4:20 AM EDT) Glucose 89 65 - 199 mg/dL [facility] Comment:Diabetes: >=200 mg/d L plus symptoms Blood Urea Nitrogen 108(H) 8 - 18 mg/dL [facility] Creatinine 4.74(H) 0.70 - 1.20 mg/dL [facility] Comment:result rechecked-OLIVA Sodium 132(L) 135 - 145 mmol/L [facility] Potassium 3.9 3.5 - 5.0 mmol/L [facility] Comment: Please note: ??Patients with WBC >100,000 may have falsely elevated Potassium levels. ??For accurate Potassium quantification in these patients send serum separator tube (gold top) for subsequent determinations. ??Contact the Clinical Chemistry Laboratory if there are any questions. Chloride 95(L) 98 - 107 mmol/L [facility] Carbon Dioxide 18(L) 22 - 31 mmol/L [facility] Anion Gap 19(H) 5 - 15 mmol/L [facility] Calcium 9.2 8.5 - 10.5 mg/dL [facility] Est Glomerular Filtration Rate 10(L) >=60 mL/min/1. 73 m?? [facility] [...] MD CHEMISTRY ORDERABLE S Performing Organization Address City/[facility]/ZIP Co de Phone Number [facility] [address] * (ABNORMAL) Iron and TIBC (05/16/2023 4:20 AM EDT) Iron 31 30 - 150 mcg/dL [facility] TIBC 259 250 - 450 mcg/dL [facility] Iron Saturation 12(L) 20 - 50 % [facility] Blood 05/16/2023 4:20 AM EDT 05/16/2023 4:29 AM EDT Narrative Resulting Agency Comment Spec In Lab Kristopher Ayoub MD CHEMISTRY ORDERABLES Performing Organization Address City/[facility]/ZIP Co de Phone Number [facility] [address] * (ABNORMAL) Basic Metabolic Panel (non-fasting) (05/15/2023 12:50 AM EDT) Glucose 101 65 - 199 mg/dL [facility] Comment:Diabetes: >=200 mg/d L plus symptoms Blood Urea Nitrogen 109(H) 8 - 18 mg/dL [facility] Creatinine 5.62(H) 0.70 - 1.20 mg/dL [facility] Comment:result rechecked-KS Sodium 131(L) 135 - 145 mmol/L [facility] Comment:result rechecked-KS Potassium 3.7 3.5 - 5.0 mmol/L [facility] Comment: result rechecked-KS Please note: ??Patients with WBC >100,000 may have falsely elevated Potassium levels. ??For accurate Potassium quantification in these patients send serum separator tube (gold top) for subsequent determinations. ??Contact the Clinical Chemistry Laboratory if there are any questions. Chloride 92(L) 98 - 107 mmol/L [facility] Comment:result rechecked-KS Carbon Dioxide 18(L) 22 - 31 mmol/L [facility] Comment:result rechecked-KS Anion Gap 21(H) 5 - 15 mmol/L [facility] Calcium 8.9 8.5 - 10.5 mg/dL [facility] Est Glomerular Filtration Rate 8(L) >=60 mL/min/1. 73 m?? [facility] Comment: This patient's estimated [...] Hudson MD CHEMISTRY ORDERABLE S [facility] [address] * (ABNORMAL) Hemogram (05/15/2023 12:50 AM EDT) White Blood Cell 9.1 4.0 - 9.5 x10(3)/mc L [facility] Red Blood Cell 2.19(L) 4.00 - 5.21 x10(6)/mc L [facility] Hemoglobin 7.2(L) 11.7 - 15.5 g/dL [facility] Hematocrit 20.6(L) 35.7 - 45.8 % [facility] Mean Cell Volume 94.1 82.6 - 94.4 fL [facility] Mean Cell Hemoglobin 32.9(H) 27.1 - 32.0 pg [facility] Mean Cell Hemoglobin Concentration 35.0 31.7 - 35.0 g/dL [facility] Platelet 109(L) 145 - 357 x10(3)/mc L [facility] RDW Standard Deviation 43.6 37.0 - 46.0 fL [facility] RDW coefficient of variation 12.9 11.5 - 14.1 % [facility] Mean Platelet Volume 10.4 7.6 - 12.[address] [facility] NRBC% auto 2.1 % [facility] NRBC Absolute 0.190(H) 0.000 - 0.000 x10(3)/mc L [facility] Blood 05/15/2023 12:5 0 AM EDT 05/15/2023 12:52 AM EDT Narrative Resulting Agency Comment Spec In Lab Alirio Hudson MD HEMATOLOGY ORDERABL ES [facility] [address] * (ABNORMAL) BLOOD GAS 2 VENOUS (05/15/2023 12:49 AM EDT) pH, Venous 7.33 7.32 - 7.42 [facility] PCO2, Venous 37(L) 41 - 51 mmHg [facility] PO2, Venous 34 25 - 40 mmHg [facility] Bicarbonate, Venous 19.1 mmol/L [facility] Base Excess, Venous -6.8 mmol/L [facility] Hgb Blood Gas 10.8(L) 11.7 - 15.5 g/dL [facility] Oxyhemoglobin, Venous 58.1 % [facility] Carboxyhemoglob in, Venous 0.3 % [facility] Comment: Nonsmokers: 0.5-1.5% COHB Smokers: Variable, but usually less than 10% Toxic: 20-30% COHB Lethal: Greater than 60% COHB Methemoglobin, Venous 0.6 <=1.5 % [facility] Na Whole Blood 136 135 [...] 1.12(L) 1.15 - 1.33 mmol/L [facility] Comment: Note: ??Total bilirubin higher than [...] [facility] Blood Gas Source Venous [facility] Blood 05/15/2023 12:4 9 AM EDT 05/15/2023 12:49 AM EDT Alirio Hudson MD POINT OF CARE TEST ORDERABLES Performing Organization Address City/State/[facility] Co de Phone Number [facility] [address] * US Retroperitoneal Complete (05/14/2023 3:53 PM [...] signed by: Hayden Robledo MD, [facility] ([phone]), at 05/14/2023 4:32 PM Thank you for letting us participate in the care of this patient. If you are a health care provider and have any questions regarding this report, please contact the number above. For patients who have questions, please contact the health rn transitional care that requested your imaging first. ? Hayden Robledo, Staff Physician Electronically Signed Final Report ?? 05/14/2023 04:39 pm Narrative 05/14/2023 4:39 PM EDT Renal ? (Signed Final 05/14/2023 04:39 pm) PATIENT INFO: ID #: ? [id number] ?: ??[birth year] (67 yrs)(F) Name: ? PURNIMAMARIZA THACKER ?Visit Date: 05/14/2023 03:44 pm PERFORMED BY: Attending: ?Meena CULP, Hayden Stafford Resident: ? Nell CULP, Anand August Performed By: ? Consuelo Tello RDMS Referred By: ?ALIRIO HUDSON Location: ? [facility] SERVICE(S) PROVIDED: URETRO - Retroperitoneal Complete - [id number] ? [id number] INDICATIONS: [facility] COMPARISON: CT: Abdomen/Pelvis 05/11/23 RIGHT [...] 05/14/2023 04:39 pm) PATIENT INFO: ID #: [id number] : 55 (67 yrs)(F) Name: PURNIMA THACKER Visit Date: 05/14/2023 03:44 pm PERFORMED BY: Attending: Hayden Robledo MD Resident: Anand Camejo MD Performed By: Consuelo Tello RDMS Referred By: ALIRIO HUDSON Location: [facility] SERVICE(S) PROVIDED: URETRO - Retroperitoneal Complete - [id number] INDICATIONS: [facility] COMPARISON: CT: Abdomen/Pelvis 05/11/23 RIGHT [...] signed by: Hayden Robledo MD, [facility] ([phone]), at 05/14/2023 4:32 PM Thank you for letting us participate in the care of this patient. If you are a health care provider and have any questions regarding this report, please contact the number above. For patients who have questions, please contact the health rn transitional care that requested your imaging first. Hayden Robledo, Staff Physician Electronically Signed Final Report 05/14/2023 04:39 pm Alirio Hudson MD IMG US GEN ORDERABL ES * CK (05/14/2023 3:17 PM EDT) Creatine Kinase 123 0 - 160 unit/L [facility] Blood 05/14/2023 3:17 PM EDT 05/14/2023 3:31 PM EDT Narrative Resulting Agency Comment Spec In Lab Alirio Hudson MD CHEMISTRY ORDERABLE S [facility] [address] * (ABNORMAL) Uric acid (05/14/2023 3:17 PM EDT) Pathologist [facility] Uric Acid 14.9(H) 2.5 - 6.5 mg/dL [facility] Blood 05/14/2023 3:17 PM EDT 05/14/2023 3:31 PM EDT Narrative Resulting Agency Comment Spec In Lab Alirio Hudson MD CHEMISTRY ORDERABLE S [facility] [address] * (ABNORMAL) Osmolality (05/14/2023 3:17 PM EDT) Osmolality 311(H) 275 - 295 mOsm/kg [facility] Blood 05/14/2023 3:17 PM EDT 05/14/2023 3:31 PM EDT Narrative Resulting Agency Comment Spec In Lab Alirio Hudson MD CHEMISTRY ORDERABLE S [facility] [address] * (ABNORMAL) Differential, Automated (05/14/2023 1:10 AM EDT) Neutrophil % 87.2 % [facility] Neutrophil Absolute 9.74(H) 1.70 - 6.10 x10(3)/mc L [facility] Lymph % 3.9 % [facility] Lymphocytes Abs 0.4(L) 0.9 - 3.2 x10(3)/mc L [facility] Monocyte % 7.9 % [facility] Monocyte Abs 0.9 0.3 - 0.9 x10(3)/mc L [facility] Eos % 0.0 % [facility] Eosinophils Abs 0.0 0.0 - 0.4 x10(3)/mc L [facility] Basophil % 0.1 % [facility] Baso Absolute 0.0 0.0 - 0.1 x10(3)/ L [facility] Immature Gran % 0.90 % [facility] Comment: Immature granulocytes(IG's)percentage and absolute count will include metamyelocytes, myelocytes, and promyelocytes. Blood smears from CBCs yielding IG's will be scanned manually for concordance. If this scan disagrees with the automated IG or if promyelocytes are noted, a manual differential will be performed. Immature Gran Absolute 0.10(H) 0.00 - 0.04 x10(3)/ L [facility] Blood 05/14/2023 1:10 AM EDT 05/14/2023 1:24 AM EDT Narrative Resulting Agency Comment Spec In Lab [facility] ORDERABLE S Performing Organization Address City/State/[facility] Co de Phone Number [facility] [place] [address] * (ABNORMAL) Hemogram (05/14/2023 1:10 AM EDT) White Blood Cell 11.2(H) 4.0 - 9.5 x10(3)/mc L [facility] Red Blood Cell 2.19(L) 4.00 - 5.21 x10(6)/mc L [facility] Hemoglobin 7.2(L) 11.7 - 15.5 g/dL [facility] Hematocrit 20.3(L) 35.7 - 45.8 % [facility] Mean Cell Volume 92.7 82.6 - 94.4 fL [facility] Mean Cell Hemoglobin 32.9(H) 27.1 - 32.0 pg [facility] Mean Cell Hemoglobin Concentration 35.5(H) 31.7 - 35.0 g/dL [facility] Platelet 112(L) 145 - 357 x10(3)/mc L [facility] RDW Standard Deviation 41.4 37.0 - 46.0 fL [facility] RDW coefficient of variation 12.5 11.5 - 14.1 % [facility] Mean Platelet Volume 10.4 7.6 - 12.9 fL [facility] NRBC% auto 1[facility]5 % [facility] [facility] NRBC Absolute 0.170(H) 0.000 - 0.000 x10(3)/mc L [facility] Blood 05/14/2023 1:10 AM EDT 05/14/2023 1:24 AM EDT Narrative Resulting Agency Comment Spec In Lab Bonita TOBAR HEMATOLOGY ORDERABLE S [facility] [address] * (ABNORMAL) Comprehensive metabolic panel (non-fasting) (05/14/2023 1:10 AM EDT) Glucose 120 65 - 199 mg/dL [facility] Comment:Diabetes: >=200 mg/d L plus symptoms Blood Urea Nitrogen 98(H) 8 - 18 mg/dL [facility] Creatinine 4.80(H) 0.70 - 1.20 mg/dL [facility] Comment:result rechecked-ssc Sodium 132(L) 135 - 145 mmol/L [facility] Potassium 4.1 3.5 - 5.0 mmol/L [facility] Comment: Please note: ??Patients with WBC >100,000 may have falsely elevated Potassium levels. ??For accurate Potassium quantification in these patients send serum separator tube (gold top) for subsequent determinations. ??Contact the Clinical Chemistry Laboratory if there are any questions. Chloride 94(L) 98 - 107 mmol/L [facility] Carbon Dioxide 18(L) 22 - 31 mmol/L [facility] Anion Gap 20(H) 5 - 15 mmol/L [facility] Calcium 8.5 8.5 - 10.5 mg/dL [facility] Protein, Total 5.8(L) 6.1 - 8.0 g/dL [facility] Albumin 3.6 3.2 - 5.2 g/dL [facility] Aspartate Aminotransferase 319(H) 0 - 30 unit/L [facility] Alanine Aminotransferase 437(H) 0 - 30 unit/L [facility] Alkaline Phosphatase 86 35 - 105 unit/L [facility] Bilirubin, Total 0.4 0.2 - 1.3 mg/dL [facility] Est Glomerular Filtration Rate 9(L) >=60 mL/min/1. 73 m?? [facility] Comment: This patient's estimated [...] City/State/[facility] Co de Phone Number [facility] [address] * APTT (05/13/2023 10:15 AM EDT) Partial Thromboplastin Time 27 25 - 37 sec [facility] Comment: The PTT is NOT appropriate for heparin monitoring. Use the Anti-Xa level for heparin monitoring (HEP UFH) or LMWH monitoring (HEP LMW). A PTT less than 37 seconds generally indicates adequate hemostasis. Blood 05/13/2023 10:1 5 AM EDT 05/13/2023 10:46 AM EDT Narrative Resulting Agency Comment Spec In Lab Alirio Hudson MD HEMATOLOGY ORDERABL ES Performing Organization Address [facility] Co de Phone Number [facility] [address] * (ABNORMAL) Prothrombin Time (05/13/2023 10:15 AM EDT) Prothrombin Time 14.6(H) 9.4 - 12.[address] [facility] International Normalization Ratio 1.3 [facility] Comment: An INR <2.0 indicates adequate [...] Organization Address [facility] Co de Phone Number [facility] [address] * EKG 12 Lead (05/13/2023 9:22 AM EDT) Ventricular rate 92 BPM MUSE SYSTEM Atrial Rate 92 BPM MUSE SYSTEM P-R Interval 140 ms MUSE SYSTEM QRS Duration 104 ms MUSE SYSTEM Q-T Interval 384 ms MUSE SYSTEM QTC Calculated (Bezet) 474 ms MUSE SYSTEM Calculated P Brandon 33 degrees MUSE SYSTEM Calculated R Brandon 41 degrees MUSE SYSTEM Calculated T Brandon -35 degrees MUSE SYSTEM INTERPRETATION Sinus rhythm with frequent Premature ventricular complexes Septal infarct , age undetermined ST & T wave abnormality, consider lateral ischemia Abnormal ECG When compared with ECG of 12-MAY-2023 10:10, Premature ventricular complexes are now Present I personally reviewed the tracing and edited the fellows interpretation Confirmed by fellow MD Anitha, Carissa ([id number]) on 05/13/2023 3:25:30 PM Confirmed by Maxx Best ([id number]) on 05/13/2023 8:30:56 PM MUSE SYSTEM 05/13/2023 9:22 AM EDT 05/13/2023 8:30 PM EDT Alirio Hudson MD ECG ORDERABLES MUSE SYSTEM * (ABNORMAL) Differential, Automated (05/13/2023 1:15 AM EDT) Neutrophil % 88.1 % [facility] Neutrophil Absolute 7.62(H) 1.70 - 6.10 x10(3)/mc L [facility] Lymph % 3.1 % [facility] Lymphocytes Abs 0.3(L) 0.9 - 3.2 x10(3)/mc L [facility] Monocyte % 7.9 % [facility] Monocyte Abs 0.7 0.3 - 0.9 x10(3)/mc L [facility] Eos % 0.0 % [facility] Eosinophils Abs 0.0 0.0 - 0.4 x10(3)/mc L [facility] Basophil % 0.1 % [facility] Baso Absolute 0.0 0.0 - 0.1 x10(3)/mc L [facility] Immature Gran % 0.80 % [facility] Comment: Immature granulocytes(IG's)percentage and absolute count will include metamyelocytes, myelocytes, and promyelocytes. Blood smears from CBCs yielding IG's will be scanned manually for concordance. If this scan disagrees with the automated IG or if promyelocytes are noted, a manual differential will be performed. Immature Gran Absolute 0.07(H) 0.00 - 0.04 x10(3)/mc L [facility] Blood 05/13/2023 1:15 AM EDT 05/13/2023 1:29 AM EDT Narrative Resulting Agency Comment Spec In Lab Lorri TOBAR HEMATOLOGY ORDERABLE S [facility] [place] [address] * (ABNORMAL) Hemogram (05/13/2023 1:15 AM EDT) White Blood Cell 8.6 4.0 - 9.5 x10(3)/mc L [facility] Red Blood Cell 2.37(L) 4.00 - 5.21 x10(6)/mc L [facility] Hemoglobin 7.8(L) 11.7 - 15.5 g/dL [facility] Hematocrit 22.2(L) 35.7 - 45.8 % [facility] Mean Cell Volume 93.7 82.6 - 94.4 fL [facility] Mean Cell Hemoglobin 32.9(H) 27.1 - 32.0 pg [facility] Mean Cell Hemoglobin Concentration 35.1(H) 31.7 - 35.0 g/dL [facility] Platelet 130(L) 145 - 357 x10(3)/mc L [facility] RDW Standard Deviation 41.7 37.0 - 46.0 fL [facility] RDW coefficient of variation 12.5 11.5 - 14.1 % [facility] Mean Platelet Volume 10.2 7.6 - 12.9 fL [facility] NRBC% auto 0.5 % [facility] NRBC Absolute 0.040(H) 0.000 - 0.000 x10(3)/ L [facility] Blood 05/13/2023 1:15 AM EDT 05/13/2023 1:29 AM EDT Narrative Resulting Agency Comment Spec In Lab Lorri TOBAR HEMATOLOGY ORDERABLE S Performing Organization Address City/State/[facility] Co de Phone Number [facility] [address] * (ABNORMAL) Hepatic Function Panel (05/13/2023 1:15 AM EDT) Pathologist [facility] Protein, Total 5.5(L) 6.1 - 8.0 g/dL [facility] Albumin 3.0(L) 3.2 - 5.2 g/dL [facility] Aspartate Aminotransferase 792(H) 0 - 30 unit/L [facility] Alanine Aminotransferase 903(H) 0 - 30 unit/L [facility] Alkaline Phosphatase 85 35 - 105 unit/L [facility] Bilirubin, Total 0.5 0.2 - 1.3 mg/dL [facility] Bilirubin, Direct 0.3 0.0 - 0.3 mg/dL [facility] Blood 05/13/2023 1:15 AM EDT 05/13/2023 1:29 AM EDT Narrative Resulting Agency Comment Spec In Lab Alirio Hudson MD CHEMISTRY ORDERABLE S Performing Organization Address City/State/[facility] Co de Phone Number [facility] [address] * (ABNORMAL) Basic Metabolic Panel (non-fasting) (05/13/2023 1:15 AM EDT) Glucose 107 65 - 199 mg/dL [facility] Comment:Diabetes: >=200 mg/d L plus symptoms Blood Urea Nitrogen 82(H) 8 - 18 mg/dL [facility] Creatinine 3.15(H) 0.70 - 1.20 mg/dL [facility] Comment:result rechecked-OG Sodium 132(L) 135 - 145 mmol/L [facility] Potassium 3.8 3.5 - 5.0 mmol/L [facility] Comment: Please note: ??Patients with WBC >100,000 may have falsely elevated Potassium levels. ??For accurate Potassium quantification in these patients send serum separator tube (gold top) for subsequent determinations. ??Contact the Clinical Chemistry Laboratory if there are any questions. Chloride 95(L) 98 - 107 mmol/L [facility] Carbon Dioxide 20(L) 22 - 31 mmol/L [facility] Anion Gap 17(H) 5 - 15 mmol/L [facility] Calcium 8.3(L) 8.5 - 10.5 mg/dL [facility] Est Glomerular Filtration Rate 16(L) >=60 mL/min/1. 73 m?? [facility] Comment: This patient's estimated [...] City/State/[facility] Co de Phone Number [facility] [address] * (ABNORMAL) BLOOD GAS 2 ARTERIAL (05/12/2023 3:57 PM EDT) pH, Arterial 7.39 7.35 - 7.45 [facility] PCO2, Arterial 33(L) 35 - 45 mmHg [facility] PO2, Arterial 101 85 - 104 mmHg [facility] Bicarbonate, Arterial 19.5(L) 20.0 - 26.0 mmol/L [facility] Base Excess, Arterial -5.5(L) -3.0 - 3.0 mmol/L [facility] Hgb Blood Gas 9.8(L) 11.7 - 15.5 g/dL [facility] Oxyhemoglobin, Arterial 95.2 94.0 - 97.0 % [facility] Carboxyhemoglob in, Arterial 0.2 % [facility] Comment: Nonsmokers: 0.5-1.5% COHB Smokers: Variable, but usually less than 10% Toxic: 20-30% COHB Lethal: Greater than 60% COHB Methemoglobin, Arterial 0.8 <=1.5 % [facility] Na Whole Blood 129(L) 135 - 145 mmol/L [facility] K Whole Blood 3.8 3.5 - 5.0 mmol/L [facility] Comment: Please note: Patients with WBC >100,000 may have falsely elevated Potassium levels. Contact the Clinical Chemistry Laboratory if there are any questions. ICa Whole Blood 1.05(L) 1.15 - 1.33 mmol/L [facility] Comment: Note: ??Total bilirubin higher than 20 mg/dL may lead to falsely low ionized calcium. CL Whole Blood 96(L) 98 - 107 mmol/L [facility] Gluc Whole Bld 178 65 - 199 mg/dL [facility] Comment:Diabetes: >=200 mg/d L plus symptoms. Lactate WB 1.5 0.5 - 2.2 mmol/L [facility] FIO2 Art 40 % [facility] PF Ratio Art 252 [facility] Blood 05/12/2023 3:57 PM EDT 05/12/2023 3:57 PM EDT Alirio Hudson MD POINT OF CARE TEST ORDERABLES [facility] [address] * (ABNORMAL) Coox2 (05/12/2023 2:25 PM EDT) pO2, Coox 37 mmHg [facility] Hgb Blood Gas 9.5(L) 11.7 - 15.5 g/dL [facility] Oxyhemoglobin, Coox 59.9 % [facility] Carboxyhemoglo bin, Coox 0.3 % [facility] Comment: Nonsmokers: 0.5-1.5% COHB Smokers: Variable, but usually less than 10% Toxic: 20-30% COHB Lethal: Greater than 60% COHB Methemoglobin, Coox 0.7 <=1.5 % [facility] Source Coox Mixed Venous [facility] Blood 05/12/2023 2:25 PM EDT 05/12/2023 2:25 PM EDT Ailrio Hudson MD POINT OF CARE TEST ORDERABLES [facility] [address] * (ABNORMAL) BLOOD GAS 2 ARTERIAL (05/12/2023 2:23 PM EDT) pH, Arterial 7.37 7.35 - 7.45 [facility] PCO2, Arterial 36 35 - 45 mmHg [facility] PO2, Arterial 102 85 - 104 mmHg [facility] Bicarbonate, Arterial 20.4 20.0 - 26.0 mmol/L [facility] Base Excess, Arterial -4.8(L) -3.0 - 3.0 mmol/L [facility] Hgb Blood Gas 12.7 11.7 - 15.5 g/dL [facility] Oxyhemoglobin, Arterial 95.4 94.0 - 97.0 % [facility] Carboxyhemoglob in, Arterial 0.3 % [facility] [...] 3.7 3.5 - 5.0 mmol/L [facility] Comment: Please note: Patients with WBC >100,000 may have falsely elevated Potassium levels. Contact the Clinical Chemistry Laboratory if there are any questions. ICa Whole Blood 1.05(L) 1.15 - 1.33 mmol/L [facility] Comment: Note: ??Total bilirubin higher than 20 mg/dL may lead to falsely low ionized calcium. CL Whole Blood 95(L) 98 - 107 mmol/L [facility] Gluc Whole Bld 168 65 - 199 mg/dL [facility] Comment:Diabetes: >=200 mg/d L plus symptoms. Lactate WB 1.8 0.5 - 2.2 mmol/L [facility] FIO2 Art 40 % [facility] PF Ratio Art 255 [facility] Blood 05/12/2023 2:23 PM EDT 05/12/2023 2:23 PM EDT Alirio Hudson MD POINT OF CARE TEST ORDERABLES [facility] [address] * (ABNORMAL) Troponin (05/12/2023 2:05 PM EDT) Troponin-T, High Sensitivity 1,022(H) <=14 ng/L [facility] Comment: This patient's troponin T concentration [...] can be found in the [facility] Test Catalog Troponin - [facility] Test Catalog Reference: Fourth Franklin Definition of Myocardial Infarction. Journal of the [employer] 2018;72:2711-4769 Blood 05/12/2023 2:05 PM EDT 05/12/2023 2:14 PM EDT Narrative Resulting Agency Comment Spec In Lab Alirio Hudson MD CHEMISTRY ORDERABLE S Performing Organization Address [facility] Co de Phone Number [facility] [address] * (ABNORMAL) Hemoglobin (05/12/2023 2:05 PM EDT) Pathologist [facility] Hemoglobin 8.5(L) 11.7 - 15.5 g/dL [facility] Blood 05/12/2023 2:05 PM EDT 05/12/2023 2:14 PM EDT Narrative Resulting Agency Comment Spec In Lab Alirio Hudson MD HEMATOLOGY ORDERABL ES Performing Organization Address [facility] Co de Phone Number [facility] [address] * Potassium (05/12/2023 2:05 PM EDT) Potassium 3.9 3.5 - 5.0 mmol/L [facility] Comment: Please note: ??Patients [...] Hudson MD CHEMISTRY ORDERABLE S [facility] [address] * (ABNORMAL) BLOOD GAS 2 ARTERIAL (05/12/2023 11:05 AM EDT) pH, Arterial 7.34(L) 7.35 - 7.45 [facility] PCO2, Arterial 42 35 - 45 mmHg [facility] PO2, Arterial 73(L) 85 - 104 mmHg [facility] Bicarbonate, Arterial 22.1 20.0 - 26.0 mmol/L [facility] Base Excess, Arterial -3.6(L) -3.0 - 3.0 mmol/L [facility] Hgb Blood Gas 9.3(L) 11.7 - 15.5 g/dL [facility] Oxyhemoglobin, Arterial 89.3(L) 94.0 - 97.0 % [facility] Carboxyhemoglob in, Arterial 0.2 % [facility] Comment: Nonsmokers: 0.5-1.5% COHB Smokers: Variable, but usually less than 10% Toxic: 20-30% COHB Lethal: Greater than 60% COHB Methemoglobin, Arterial 0.9 <=1.5 % [facility] Na Whole Blood 131(L) 135 - 145 mmol/L [facility] K Whole Blood 3.8 3.5 - 5.0 mmol/L [facility] Comment: Please note: Patients with WBC >100,000 may have falsely elevated Potassium levels. Contact the Clinical Chemistry Laboratory if there are any questions. ICa Whole Blood 1.04(L) 1.15 - 1.33 mmol/L [facility] Comment: Note: ??Total bilirubin higher than 20 mg/dL may lead to falsely low ionized calcium. CL Whole Blood 96(L) 98 - 107 mmol/L [facility] Gluc Whole Bld 152 65 - 199 mg/dL [facility] Comment:Diabetes: >=200 mg/d L plus symptoms. Lactate WB 2.8(H) 0.5 - 2.2 mmol/L [facility] FIO2 Art 40 % [facility] PF Ratio Art 182 [facility] Blood 05/12/2023 11:0 5 AM EDT 05/12/2023 11:05 AM EDT Alirio Hudson MD POINT OF CARE TEST ORDERABLES Performing Organization Address City/State/[facility] Co de Phone Number [facility] [address] * (ABNORMAL) BLOOD GAS 2 ARTERIAL (05/12/2023 10:14 AM EDT) pH, Arterial 7.18(Criti gabrielle) 7.35 - 7.45 [facility] Comment:Noted by musical instrument maker or repairer. PCO2, Arterial 45 35 - 45 mmHg [facility] PO2, Arterial 186(H) 85 - 104 mmHg [facility] Bicarbonate, Arterial 16.2(L) 20.0 - 26.0 mmol/L [facility] Base Excess, Arterial -12.2(L) -3.0 - 3.0 mmol/L [facility] Hgb Blood Gas 10.0(L) 11.7 - 15.5 g/dL [facility] Oxyhemoglobin, Arterial 97.0 94.0 - 97.0 % [facility] Carboxyhemoglob in, Arterial 0.2 % [facility] Comment: Nonsmokers: 0.5-1.5% COHB Smokers: Variable, but usually less than 10% Toxic: 20-30% COHB Lethal: Greater than 60% COHB Methemoglobin, Arterial 0.9 <=1.5 % [facility] Na Whole Blood 129(L) 135 - 145 mmol/L [facility] K Whole Blood 3.6 3.5 - 5.0 mmol/L [facility] Comment: Please note: Patients with WBC >100,000 may have falsely elevated Potassium levels. Contact the Clinical Chemistry Laboratory if there are any questions. ICa Whole Blood 1.10(L) 1.15 - 1.33 mmol/L [facility] Comment: Note: ??Total bilirubin higher than [...] City/State/[facility] Co de Phone Number [facility] [address] * EKG 12 Lead (05/12/2023 10:10 AM EDT) Ventricular rate 116 BPM MUSE SYSTEM Atrial Rate 116 BPM MUSE SYSTEM P-R Interval 158 ms MUSE SYSTEM QRS Duration 114 ms MUSE SYSTEM Q-T Interval 348 ms MUSE SYSTEM QTC Calculated (Bezet) 483 ms MUSE SYSTEM Calculated P Brandon 37 degrees MUSE SYSTEM Calculated R Brandon 31 degrees MUSE SYSTEM Calculated T Brandon -138 degrees MUSE SYSTEM INTERPRETATION Sinus tachycardia [...] interpretation Confirmed by fellow MD Anuja, Jim ([id number]) on 05/12/2023 1:04:20 PM Confirmed by MD Villareal Danette ([id number]) on 05/12/2023 9:28:34 PM MUSE SYSTEM 05/12/2023 [...] have questions please contact the health rn transitional care that requested your imaging first. ? Narrative 05/12/2023 10:08 AM EDT EXAMINATION: XR CHEST ONE VIEW CLINICAL HISTORY: Post TAVR TECHNIQUE: 1 view of the chest COMPARISON: Chest radiograph from earlier today FINDINGS: Interval placement of endotracheal tube with tip terminating 2 cm above the shira. Interval placement of enteric tube projecting along the expected course of the esophagus and outside the [id number]-[id number]. Interval retraction of right IJ approach pulmonary [...] expected course ofthe esophagus and outside the elwtj-rh-psbs. Interval retraction of right IJ approach pulmonary [...] who have questions please contactthe health rn transitional care that requested your imaging first. Electronically signed by: Chyna Johnson MD, [facility]([phone]), at 05/12/2023 10:08 AM Alirio Hudson MD [...] 1955 ? Height: 154 cm ? Account: [id number] Age: 67 yrs ? Weight: 75 kg [...] mL/m2. POST TAVR: Normal function of the [id number]-hh-zpxaq prosthesis. See below for hemodynamic parameters. Slight improvement in left and right ventricular systolic function. LVEF now 20-25%. No pericardial effusion. See report for additional findings. Procedure Limited - 68255. Doppler - 45883. Color Doppler - 48197. Left Ventricle Left ventricle is of normal [...] Chua MD - 05/12/2023 Echocardiogram Report Name: KIRSTIE PURNIMA Mejias Study Date: 307:33 AMBP: 96/63 mmHg Patient Location: [address] : 1955 Height: 154 cm Account: [id number] Age: 67 yrs Weight: 75 kg Gender: [...] 28mL/m2. POST TAVR: Normal function of the wjbda-xu-xabvj prosthesis. See belowfor hemodynamic parameters. Slight improvement in left and right ventricularsystolic function. LVEF now 20-25%. No pericardial effusion. See report for additional findings. Procedure Limited - 71466. Doppler - 81235. Color Doppler - 56556. Left Ventricle Left ventricle is of normal [...] ? Procedure Date: 05/12/2023 ? A #: [id number] ? Primary Physician: Young, Antelmo N ? Case #: [id number] ? File Name: [id number] ? Catheterization Order Number: [id number] ? [facility] ? Final Report [place], [place] ? Patient Name: ? Purnima M. Kirstie ? ID#: ?[id number] ? : ?1955 ? Procedure Date: ? [...] Device Deployment ?* Temporary Pacemaker Insertion In Pressing Machine Tender ?* Endotracheal Intubation By Non-Cath Physician ?* [...] was designated as ASA Class IV. The [facility] clinical ?frailty scale is 4: [...] guide. ??A premounted 4.00 x 30 mm [place] Starr (MINNA) was ? deployed with a maximum [...] calculated STS risk score was 30.1%. A knlnn-iy-siewi ?procedure was performed on the pre-existing bioprosthetic stented ?prosthesis. The priority of the umezx-re-ljefa procedure was Elective. ?The procedure was performed [...] Lai 3 Ultra RESILIA 23 mm THV (s/b=[id number]) transcatheter ?valve was inserted using standard technique. [...] to nor was it given in the ?union laborer. ?Recommended anti-platelet/anti-thrombotic regimen: ?Continue aspirin 81 mg daily for indefinitely. ?These recommendations are made at the time of the intervention. Patient ?and provider preferences or a changing clinical situation may require ?modification of this regimen. Consult [facility] Interventional Cardiology for ?questions. [...] regimen. ? Comments: ?Successful right transfemoral TAVR [id number] with a 23 mm Lai 3 ?THV. [...] insertion-coronary, access site angiography, ?temporary pacemaker in union laborer, intubation-non cath physician, vascular ?closure device, transthoracic echo ??and TAVR. Dr. Alirio Hudson M.D. ?performed the left heart catheterization, access site angiography, ?temporary pacemaker in union laborer, vascular closure device, transthoracic ?echo , TAVR and CPR during cath. Dr. Lynda Mcgowan M.D. performed the ABG, ?anesthesia and intubation-non cath physician. ? Arabella OgdenD. ? Electronically Signed by: Antelmo Sharma MKaylieD. ? Report Finalized: 05/12/2023 ??14:31 ? Report Last Ammended: 07/01/2023 ??11:30 ? Procedure Note Antelmo Sharma MD - 07/01/2023 [facility] Cardiac Catheterization/Intervention Report Patient Name: Purnima Thacker Procedure Date: 05/12/2023 A #: [id number] Primary Physician: Antelmo Sharma Case #: [id number] File Name: [id number] Catheterization Order Number: [id number] [facility] FinalReport [place], [place] Patient Name: Purnima Thacker ID#:[id number] :[id number] Procedure Date: May 12, 2023 Case #: [id number] Room: 6 Case Physicians: Antelmo Sharma M.D. Start: 08:03 Alirio Hudson M.D. Admission:05/08/2023 Lynda Mcgowan M.D. Discharge:05/22/2023 Fellow: Rebekah Tejeda M.D. Referring Physician: Mario Alberto Chin M.D. Procedures: * Coronary Angiography * Left Heart Catheterization * Coronary Stent Insertion * Transcatheter Aortic Valve Replacement * Vascular Closure Device Deployment * Temporary Pacemaker Insertion In Pressing Machine Tender * Endotracheal Intubation By Non-Cath Physician * [...] guide. A premounted 4.00 x 30 mm [place] Starr (MINNA) was deployed with a maximum inflation [...] calculated STS risk score was 30.1%. A oskow-ox-qgyxz procedure was performed on the pre-existing bioprosthetic stented prosthesis. The priority of the ddzyr-rq-ueras procedure wasElective. The procedure was performed under Moderate sedation performed byLynda Mcgowan M.D. (see anesthesia report for additional details). Alirio Hudson M.D. participated in the case (see Cardiac Surgery reportfor additional details). The TAVR sheath was a 14 Fr Corona eSheath Introducer and theaccess site was femoral. Rapid ventricular pacing was performed. An Corona Lai 3 Ultra RESILIA 23 mm THV (s/e=[id number])transcatheter valve was inserted using standard technique. The [...] prior to nor was it given inthe union laborer. Recommended anti-platelet/anti-thrombotic regimen: Continue aspirin 81 mg daily for indefinitely. These recommendations are made at the time of the intervention.Patient and provider preferences or a changing clinical situation mayrequire modification of this regimen. Consult [facility] Interventional Cardiologyfor questions. Conclusions: [...] this regimen. Comments: Successful right transfemoral TAVR Wpzwd-sm-Reygw with a 23 mmSapien 3 THV. We [...] insertion-coronary, access site angiography, temporary pacemaker in union laborer, intubation-non cath physician,vascular closure device, transthoracic echo and TAVR. Dr. Alirio Hudson M.D. performed the left heart catheterization, access site angiography, temporary pacemaker in union laborer, vascular closure device,transthoracic echo , TAVR [...] 7.20(Crit ical) 7.35 - 7.45 [facility] Comment:Critical value OK, C C Lab. pCO2, POC 42 35 - [address] [facility] pO2, POC 260(H) 85 - [address] [facility] Base Excess, POC -11.0(L) -3.0 - 3.0 mmol/L [facility] Bicarbonate, POC 16.7(L) 20.0 - 26.0 mmol/L [facility] Sodium, POC 129(L) 135 - 145 mmol/L [facility] POC Potassium 3.8 3.5 - 5.0 mmol/L [facility] Ionized Calcium, POC 1.12(L) 1.15 - 1.33 mmol/L [facility] POC Hematocrit 23.0(L) 34.0 - 45.0 % [facility] POC Calc Hgb 7.8(L) 11.2 - 15.7 g/dL [facility] Comment:The calculation of h emoglobin from hematocrit assumes a normal MCHC. POC Bgas Loc CC Lab [facility] Blood 05/12/2023 8:50 AM EDT 05/13/2023 12:00 PM EDT Alirio Hudson MD CHEMISTRY ORDERABLE S Performing Organization Address [facility] Co de Phone Number [facility] [address] * (ABNORMAL) Point of Care Blood Gas Historical (05/12/2023 8:10 AM EDT) pH, POC 7.27(Crit ical) 7.35 - 7.45 [facility] Comment:Critical value OK, C C Lab. pCO2, POC 37 35 - [address] [facility] pO2, POC 29(Critic al) 85 - [address] [facility] Comment:Critical value OK, C C Lab. Base Excess, POC -10.0(L) -3.0 - 3.0 mmol/L [facility] Bicarbonate, POC 16.7(L) 20.0 - 26.0 mmol/L [facility] Sodium, POC 123(L) 135 - 145 mmol/L [facility] POC Potassium 4.0 3.5 - 5.0 mmol/L [facility] Ionized Calcium, POC 1.12(L) 1.15 - 1.33 mmol/L [facility] POC Hematocrit 27.0(L) 34.0 - 45.0 % [facility] POC Calc Hgb 9.2(L) 11.2 - 15.7 g/dL [facility] Comment:The calculation of h emoglobin from hematocrit assumes a normal MCHC. POC Bgas Loc CC Lab [facility] Blood 05/12/2023 8:10 AM EDT 05/13/2023 12:00 PM EDT Alirio Hudson MD CHEMISTRY ORDERABLE S Performing Organization Address City/[facility]/ZIP Co de Phone Number [facility] [address] * (ABNORMAL) Lactate, whole blood, send to lab ([facility]) (05/12/2023 7:00 AM EDT) Lactate WB 2.4(H) 0.5 - 2.2 mmol/L [facility] Blood 05/12/2023 7:00 AM EDT 05/12/2023 7:09 AM EDT Narrative Resulting Agency Comment Spec In Lab Radha Hollins MD CHEMISTRY ORDERABL ES [facility] [address] [place] [address] * (ABNORMAL) Comprehensive metabolic panel (non-fasting) (05/12/2023 6:00 AM EDT) Glucose 167 65 - 199 mg/dL [facility] Comment:Diabetes: >=200 mg/d L plus symptoms Blood Urea Nitrogen 67(H) 8 - 18 mg/dL [facility] Creatinine 2.01(H) 0.70 - 1.20 mg/dL [facility] Sodium 131(L) 135 - 145 mmol/L [facility] Potassium 4.3 3.5 - 5.0 mmol/L [facility] Comment: Please note: ??Patients with WBC >100,000 may have falsely elevated Potassium levels. ??For accurate Potassium quantification in these patients send serum separator tube (gold top) for subsequent determinations. ??Contact the Clinical Chemistry Laboratory if there are any questions. Chloride 97(L) 98 - 107 mmol/L [facility] Carbon Dioxide 14(L) 22 - 31 mmol/L [facility] Anion Gap 20(H) 5 - 15 mmol/L [facility] Calcium 8.6 8.5 - 10.5 mg/dL [facility] Protein, Total 6.3 6.1 - 8.0 g/dL [facility] Albumin 3.5 3.2 - 5.2 g/dL [facility] Aspartate Aminotransferase 1,435(H) 0 - 30 unit/L [facility] Alanine Aminotransferase 1,174(H) 0 - 30 unit/L [facility] Alkaline Phosphatase 100 35 - 105 unit/L [facility] Bilirubin, Total 0.9 0.2 - 1.3 mg/dL [facility] Est Glomerular Filtration Rate 27(L) >=60 mL/min/1. 73 m?? [facility] [...] MD CHEMISTRY ORDERABL ES Performing Organization Address City/[facility] Co de Phone Number [facility] [address] * (ABNORMAL) Coox2 (05/12/2023 5:08 AM EDT) pO2, Coox [address] [facility] Hgb Blood Gas 10.4(L) 11.7 - 15.5 g/dL [facility] Oxyhemoglobin, Coox 30.7 % [facility] Carboxyhemoglo bin, Coox 0.3 % [facility] Comment: Nonsmokers: 0.5-1.5% COHB Smokers: Variable, but usually less than 10% Toxic: 20-30% COHB Lethal: Greater than 60% COHB Methemoglobin, Coox 0.8 <=1.5 % [facility] Source Coox Mixed Venous [facility] Blood 05/12/2023 5:08 AM EDT 05/12/2023 5:08 AM EDT Radha Hollins MD POINT OF CARE TEST ORDERABLES Performing Organization Address City/[facility] Co de Phone Number [facility] [address] * (ABNORMAL) Coox2 (05/12/2023 3:21 AM EDT) pO2, Coox [address] [facility] Hgb Blood Gas 10.8(L) 11.7 - 15.5 g/dL [facility] Oxyhemoglobin, Coox 32.7 % [facility] Carboxyhemoglo bin, Coox 0.3 % [facility] Comment: Nonsmokers: 0.5-1.5% COHB Smokers: Variable, but usually less than 10% Toxic: 20-30% COHB Lethal: Greater than 60% COHB Methemoglobin, Coox 0.7 <=1.5 % [facility] Source Coox Mixed Venous [facility] Blood 05/12/2023 3:21 AM EDT 05/12/2023 3:21 AM EDT Radha Hollins MD POINT OF CARE TEST ORDERABLES [facility] [address] * (ABNORMAL) BLOOD GAS 2 ARTERIAL (05/12/2023 3:18 AM EDT) pH, Arterial 7.34(L) 7.35 - 7.45 [facility] PCO2, Arterial 30(L) 35 - 45 mmHg [facility] PO2, Arterial 72(L) 85 - [address] [facility] Bicarbonate, Arterial 16.0(L) 20.0 - 26.0 mmol/L [facility] Base Excess, Arterial -9.8(L) -3.0 - 3.0 mmol/L [facility] Hgb Blood Gas 11.0(L) 11.7 - 15.5 g/dL [facility] Oxyhemoglobin, Arterial 89.8(L) 94.0 - 97.0 % [facility] Carboxyhemoglob in, Arterial 0.3 % [facility] [...] 4.2 3.5 - 5.0 mmol/L [facility] Comment: Please note: Patients with WBC >100,000 may have falsely elevated Potassium levels. Contact the Clinical Chemistry Laboratory if there are any questions. ICa Whole Blood 1.12(L) 1.15 - 1.33 mmol/L [facility] Comment: Note: ??Total bilirubin higher than 20 mg/dL may lead to falsely low ionized calcium. CL Whole Blood 100 98 - 107 mmol/L [facility] Gluc Whole Bld 160 65 - 199 mg/dL [facility] Comment:Diabetes: >=200 mg/d L plus symptoms. Lactate WB 2.7(H) 0.5 - 2.2 mmol/L [facility] Flow Art 5.0 LPM [facility] Blood 05/12/2023 3:18 AM EDT 05/12/2023 3:18 AM EDT Radha Hollins MD POINT OF CARE TEST ORDERABLES [facility] [address] * (ABNORMAL) Coox2 (05/12/2023 1:14 AM EDT) pO2, Coox 28 mmHg [facility] Hgb Blood Gas 10.9(L) 11.7 - 15.5 g/dL [facility] Oxyhemoglobin, Coox 37.3 % [facility] Carboxyhemoglo bin, Coox 0.3 % [facility] Comment: Nonsmokers: 0.5-1.5% COHB Smokers: Variable, but usually less than 10% Toxic: 20-30% COHB Lethal: Greater than 60% COHB Methemoglobin, Coox 0.5 <=1.5 % [facility] Source Coox Mixed Venous [facility] Blood 05/12/2023 1:14 AM EDT 05/12/2023 1:14 AM EDT Radha Hollins MD POINT OF CARE TEST ORDERABLES [facility] [place] [address] * (ABNORMAL) BLOOD GAS 2 ARTERIAL (05/12/2023 1:06 AM EDT) pH, Arterial 7.34(L) 7.35 - 7.45 [facility] PCO2, Arterial 30(L) 35 - 45 mmHg [facility] PO2, Arterial 81(L) 85 - 104 mmHg [facility] Bicarbonate, Arterial 15.7(L) 20.0 - 26.0 mmol/L [facility] Base Excess, Arterial -10.1(L) -3.0 - 3.0 mmol/L [facility] Hgb Blood Gas 11.0(L) 11.7 - 15.5 g/dL [facility] Oxyhemoglobin, Arterial 92.3(L) 94.0 - 97.0 % [facility] Carboxyhemoglob in, Arterial 0.2 % [facility] Comment: Nonsmokers: 0.5-1.5% COHB Smokers: Variable, but usually less than 10% Toxic: 20-30% COHB Lethal: Greater than 60% COHB Methemoglobin, Arterial 0.6 <=1.5 % [facility] Na Whole Blood 131(L) 135 - 145 mmol/L [facility] K Whole Blood 4.2 3.5 - 5.0 mmol/L [facility] Comment: Please note: Patients with WBC >100,000 may have falsely elevated Potassium levels. Contact the Clinical Chemistry Laboratory if there are any questions. ICa Whole Blood 1.13(L) 1.15 - 1.33 mmol/L [facility] Comment: Note: ??Total bilirubin higher than 20 mg/dL may lead to falsely low ionized calcium. CL Whole Blood 99 98 - 107 mmol/L [facility] Gluc Whole Bld 132 65 - 199 mg/dL [facility] Comment:Diabetes: >=200 mg/d L plus symptoms. Lactate WB 2.7(H) 0.5 - 2.2 mmol/L [facility] Flow Art 5.[address] [facility] Blood 05/12/2023 1:06 AM EDT 05/12/2023 1:06 AM EDT Radha Hollins MD POINT [place] [address] * (ABNORMAL) Differential, Automated (05/12/2023 1:05 AM EDT) Neutrophil % 83.3 % [facility] Neutrophil Absolute 7.49(H) 1.70 - 6.10 x10(3)/mc L [facility] Lymph % 7.1 % [facility] Lymphocytes Abs 0.6(L) 0.9 - 3.2 x10(3)/mc L [facility] Monocyte % 8.9 % [facility] Monocyte Abs 0.8 0.3 - 0.9 x10(3)/mc L [facility] Eos % 0.0 % [facility] Eosinophils Abs 0.0 0.0 - 0.4 x10(3)/mc L [facility] Basophil % 0.1 % [facility] Baso Absolute 0.0 0.0 - 0.1 x10(3)/mc L [facility] Immature Gran % 0.60 % [facility] Comment: Immature granulocytes(IG's)percentage and absolute count will include metamyelocytes, myelocytes, and promyelocytes. Blood smears from CBCs yielding IG's will be scanned manually for concordance. If this scan disagrees with the automated IG or if promyelocytes are noted, a manual differential will be performed. Immature Gran Absolute 0.05(H) 0.00 - 0.04 x10(3)/mc L [facility] Blood 05/12/2023 1:05 AM EDT 05/12/2023 1:15 AM EDT Narrative Resulting Agency Comment Spec In Lab Gianni Fletcher MD [place] [address] * (ABNORMAL) Hemogram (05/12/2023 1:05 AM EDT) White Blood Cell 9.0 4.0 - 9.5 x10(3)/mc L [facility] Red Blood Cell 3.01(L) 4.00 - 5.21 x10(6)/mc L [facility] Hemoglobin 9.8(L) 11.7 - 15.5 g/dL [facility] Hematocrit 28.7(L) 35.7 - 45.8 % [facility] Mean Cell Volume 95.3(H) 82.6 - 94.4 fL [facility] Mean Cell Hemoglobin 32.6(H) 27.1 - 32.0 pg [facility] Mean Cell Hemoglobin Concentration 34.1 31.7 - 35.0 g/dL [facility] Platelet 186 145 - 357 x10(3)/mc L [facility] RDW Standard Deviation 43.7 37.0 - 46.0 fL [facility] RDW coefficient of variation 12.7 11.5 - 14.1 % [facility] Mean Platelet Volume 10.3 7.6 - 12.9 fL [facility] NRBC% auto 0.0 % [facility] NRBC Absolute 0.000 0.000 - 0.000 x10(3)/mc L [facility] Blood 05/12/2023 1:05 AM EDT 05/12/2023 1:15 AM EDT Narrative Resulting Agency Comment Spec In Lab Gianni Fletcher MD HEMATOLOGY ORDERABLE S [facility] [address] * (ABNORMAL) Comprehensive metabolic panel (non-fasting) (05/12/2023 1:05 AM EDT) Glucose 141 65 - 199 mg/dL [facility] Comment:Diabetes: >=200 mg/d L plus symptoms Blood Urea Nitrogen 63(H) 8 - 18 mg/dL [facility] Creatinine 1.86(H) 0.70 - 1.20 mg/dL [facility] Sodium 131(L) 135 - 145 mmol/L [facility] Potassium 4.4 3.5 - 5.0 mmol/L [facility] Comment: Please note: ??Patients with WBC >100,000 may have falsely elevated Potassium levels. ??For accurate Potassium quantification in these patients send serum separator tube (gold top) for subsequent determinations. ??Contact the Clinical Chemistry Laboratory if there are any questions. Chloride 96(L) 98 - 107 mmol/L [facility] Carbon Dioxide 14(L) 22 - 31 mmol/L [facility] Anion Gap 21(H) 5 - 15 mmol/L [facility] Calcium 9.0 8.5 - 10.5 mg/dL [facility] Protein, Total 6.6 6.1 - 8.0 g/dL [facility] Albumin 3.9 3.2 - 5.2 g/dL [facility] Aspartate Aminotransferase 1,227(H) 0 - 30 unit/L [facility] Alanine Aminotransferase 1,097(H) 0 - 30 unit/L [facility] Alkaline Phosphatase 108(H) 35 - 105 unit/L [facility] Bilirubin, Total 1.0 0.2 - 1.3 mg/dL [facility] Est Glomerular Filtration Rate 29(L) >=60 mL/min/1. 73 m?? [facility] Comment: This patient's estimated [...] Hollins MD CHEMISTRY ORDERABL ES [facility] [address] * XR Chest One View (05/12/2023 1:00 [...] have questions please contact the health rn transitional care that requested your imaging first. ? [...] who have questions please contactthe health rn transitional care that requested your imaging first. Radha Hollins MD IMG DX ORDERABLES * (ABNORMAL) Coox2 (05/12/2023 12:30 AM EDT) pO2, Coox [address] [facility] Hgb Blood Gas 10.9(L) 11.7 - 15.5 g/dL [facility] Oxyhemoglobin, Coox 25.1 % [facility] Carboxyhemoglo bin, Coox 0.3 % [facility] Comment: Nonsmokers: 0.5-1.5% COHB Smokers: Variable, but usually less than 10% Toxic: 20-30% COHB Lethal: Greater than 60% COHB Methemoglobin, Coox 1.4 <=1.5 % [facility] Source Coox Mixed Venous [facility] Blood 05/12/2023 12:3 0 AM EDT 05/12/2023 12:30 AM EDT Radha Hollins MD POINT OF CARE TEST ORDERABLES [facility] [place] [address] * XR Chest One View (05/11/2023 11:45 [...] have questions please contact the health rn transitional care that requested your imaging first. ? [...] who have questions please contactthe health rn transitional care that requested your imaging first. Radha Hollins MD IMG DX ORDERABLES * (ABNORMAL) Lactate, whole blood, send to lab ([facility]) (05/11/2023 7:40 PM EDT) [facility] Lactate WB 4.8(Critic al) 0.5 - 2.2 mmol/L [facility] Comment:Called by: [facility], Read back by: Magdalena Baires, Date/Time:05/11/23 19:54. Blood 05/11/2023 7:40 PM EDT 05/11/2023 7:49 PM EDT Narrative Resulting Agency Comment Spec In Lab Radha Hollins MD CHEMISTRY ORDERABL ES [facility] [address] * Urine culture (05/11/2023 7:22 PM EDT) Urine Culture 50,000-99,000 cfu/ml Normal mucosal herman Susceptibilit y testing not routinely performed for Coagulase Negative Staphylococcu s species and other Gram Positive organisms from urine. [facility] Clean Catch Urine 05/11/2023 7:22 PM EDT 05/11/2023 8:50 PM EDT Narrative Resulting Agency Comment Spec In Lab Brody Kaplan APRN MICROBIOLOGY - GENE RAL ORDERABLES Performing Organization Address [facility] Co de Phone Number [facility] [address] * (ABNORMAL) Urinalysis Microscopic Exam (05/11/2023 7:22 PM EDT) Pathologist [facility] RBC, Urine 2 0 - 4 /HPF [facility] WBC, Urine >100(H) 0 - 5 /HPF [facility] Bacteria, Urine Occasional (A) None /HPF [facility] Squamous Epithelial Cells Raw Data, Urine 5(H) <=4 /HPF [facility] Hyaline Casts, Urine 3(H) 0 - 2 /LPF [facility] Clean Catch Urine 05/11/2023 7:22 PM EDT 05/11/2023 7:31 PM EDT Narrative Resulting Agency Comment Spec In Lab Brody Kaplan APRN URINE ORDERABLES Performing Organization Address [facility] de Phone Number [facility] [place] [address] * (ABNORMAL) Urinalysis with reflex Culture (05/11/2023 7:22 PM EDT) Pathologist [facility] Glucose, Urine Dipstick Negative Negative mg/dL [facility] Protein, Urine Dipstick Trace(A) Negative mg/dL [facility] Bilirubin, Urine Dipstick Negative Negative mg/dL [facility] Comment: Clinical correlation required for positive Urine Bilirubin results as false positive may occur with some drugs and drug related products. If a false positive is suspected a serum total bilirubin should be considered if clinically indicated. Urobilinogen, Urine Dipstick Normal Normal mg/dL [facility] pH, Urn (dipstick) 5.0 5.0 - 8.0 [facility] Blood, Urine Dipstick Trace(A) Negative mg/dL [facility] Ketone, Urine Dipstick Negative Negative mg/dL [facility] Nitrite, Urine Dipstick Negative Negative [facility] Leukocytes, Urine Dipstick Moderate(A) Negative mcL [facility] Appearance, Urine Dipstick Cloudy(A) Clear [facility] Specific [place] Urine Automated >=1.030(A) 1.005 - 1.030 [facility] Color, Urine Dipstick Yellow Yellow [facility] Reflex to Culture Yes [facility] Clean Catch Urine 05/11/2023 7:22 PM EDT 05/11/2023 7:31 PM EDT Narrative Resulting Agency Comment Spec In Lab Brody Kaplan APRN URINE ORDERABLES Performing Organization Address [facility]/ZIP Co de Phone Number [facility] [place] [address] * (ABNORMAL) pro-Brain Natriuretic Peptide (05/11/2023 7:11 PM EDT) NT-proBNP >35,000(H) <=124 pg/mL [facility] Blood 05/11/2023 7:11 PM EDT 05/11/2023 7:26 PM EDT Narrative Resulting Agency Comment Spec In Lab Radha Hollins MD CHEMISTRY ORDERABL ES Performing Organization Address [facility]/ZIP Co de Phone Number [facility] [place] [address] * (ABNORMAL) Lactate, whole blood, send to lab ([facility]) (05/11/2023 2:47 PM EDT) Lactate WB 2.9(H) 0.5 - 2.2 mmol/L [facility] Blood 05/11/2023 2:47 PM EDT 05/11/2023 2:53 PM EDT Narrative Resulting Agency Comment Spec In Lab Juan Luis Gonzalez MD CHEMISTRY ORDERABLES [facility] [place] [address] * (ABNORMAL) CT Angiogram Abdomen & Pelvis [...] have questions please contact the health rn transitional care that requested your imaging first. ? Electronically signed by: Eileen Gomes MD, [facility] ([phone]), at 05/11/2023 2:42 PM Narrative 05/11/2023 2:42 [...] have questions please contact the health rn transitional care that requested your imaging first. ? Electronically signed by: Cullen Narayanan MD, [facility] ([phone]), at 05/11/2023 4:37 PM Narrative 05/11/2023 4:37 [...] 610 mm2 Circumference: 88 mm Calcification: Mild Yblqumt-cu-dwrckcjg height: Left: 6.2 mm Right: 5.8 mm THORACIC AORTA Description: Normal course and caliber. ??Mild diffuse atherosclerotic changes. No acute aortopathy noted. Human Resources Specialist dimensions: Aortic root: 27.6 mm Max ascending aorta: 30.5 mm x 27.7 mm Suggested fluoroscopic angulation based on line extending through the nadirs of the three sinuses of Valsalva, set equidistant: ?? ERITREAN ??9 degrees; cranial 7 degrees MITRAL: Mitral [...] 610 mm2 Circumference: 88 mm Calcification: Mild Hyucogk-rs-erymmneg height: Left: 6.2 mm Right: 5.8 mm THORACIC AORTA Description: Normal course and caliber. Mild diffuse atheroscleroticchanges. No acute aortopathy noted. Human Resources Specialist dimensions: Aortic root: 27.6 mm Max ascending aorta: 30.5 mm x 27.7 mm Suggested fluoroscopic angulation based on line extending through thenadirs of the three sinuses of Valsalva, set equidistant: ERITREAN 9 degrees; cranial 7 degrees MITRAL: Mitral [...] who have questions please contactthe health rn transitional care that requested your imaging first. Electronically signed by: Cullen Narayanan MD, [facility]([phone]), at 05/11/2023 4:37 PM Antelmo Sharma MD IMG CT ORDERABLES * (ABNORMAL) Lactate, whole blood, send to lab ([facility]) (05/11/2023 9:29 AM EDT) Pathologist [facility] Lactate WB 3.1(H) 0.5 - 2.2 mmol/L [facility] Blood 05/11/2023 9:29 AM EDT 05/11/2023 9:38 AM EDT Narrative Resulting Agency Comment Spec In Lab Juan Luis Gonzalez MD CHEMISTRY ORDERABLES [facility] [place] [address] * (ABNORMAL) Differential, Automated (05/11/2023 4:42 AM EDT) [facility] Neutrophil % 78.1 % [facility] Neutrophil Absolute 5.46 1.70 - 6.10 x10(3)/mc L [facility] Lymph % 10.6 % [facility] Lymphocytes Abs 0.7(L) 0.9 - 3.2 x10(3)/mc L [facility] Monocyte % 9.6 % [facility] Monocyte Abs 0.7 0.3 - 0.9 x10(3)/mc L [facility] Eos % 0.0 % [facility] Eosinophils Abs 0.0 0.0 - 0.4 x10(3)/mc L [facility] Basophil % 0.4 % [facility] Baso Absolute 0.0 0.0 - 0.1 x10(3)/mc L [facility] Immature Gran % 1.30 % [facility] Comment: Immature granulocytes(IG's)percentage and absolute count will include metamyelocytes, myelocytes, and promyelocytes. Blood smears from CBCs yielding IG's will be scanned manually for concordance. If this scan disagrees with the automated IG or if promyelocytes are noted, a manual differential will be performed. Immature Gran Absolute 0.09(H) 0.00 - 0.04 x10(3)/mc L [facility] Blood 05/11/2023 4:42 AM EDT 05/11/2023 4:49 AM EDT Narrative Resulting Agency Comment Spec In Lab Klaudia Reid MD HEMATOLOGY OR DERABLES [facility] [address] * (ABNORMAL) Hemogram (05/11/2023 4:42 AM EDT) White Blood Cell 7.0 4.0 - 9.5 x10(3)/mc L [facility] Red Blood Cell 3.44(L) 4.00 - 5.21 x10(6)/mc L [facility] Hemoglobin 11.1(L) 11.7 - 15.5 g/dL [facility] Hematocrit 32.7(L) 35.7 - 45.8 % [facility] Mean Cell Volume 95.1(H) 82.6 - 94.4 fL [facility] Mean Cell Hemoglobin 32.3(H) 27.1 - 32.0 pg [facility] Mean Cell Hemoglobin Concentration 33.9 31.7 - 35.0 g/dL [facility] Platelet 165 145 - 357 x10(3)/mc L [facility] RDW Standard Deviation 43.1 37.0 - 46.0 fL [facility] RDW coefficient of variation 12.7 11.5 - 14.1 % [facility] Mean Platelet Volume 10.1 7.6 - 12.9 fL [facility] NRBC% auto 0.0 % [facility] NRBC Absolute 0.000 0.000 - 0.000 x10(3)/mc L [facility] Blood 05/11/2023 4:42 AM EDT 05/11/2023 4:49 AM EDT Narrative Resulting Agency Comment Spec In Lab Klaudia Reid MD HEMATOLOGY OR DERABLES Performing Organization Address City/[facility]/ZIP Co de Phone Number [facility] [address] * Heparin (unfractionated) Level (05/11/2023 4:42 AM EDT) UF Heparin 0.46 IU/mL [facility] [...] MD HEMATOLOGY ORDERAB LES Performing Organization Address City/State/[facility] Co de Phone Number [facility] [address] * (ABNORMAL) Comprehensive metabolic panel (non-fasting) (05/11/2023 4:42 AM EDT) Glucose 143 65 - 199 mg/dL [facility] Comment:Diabetes: >=200 mg/d L plus symptoms Blood Urea Nitrogen 42(H) 8 - 18 mg/dL [facility] Creatinine 1.24(H) 0.70 - 1.20 mg/dL [facility] Sodium 134(L) 135 - 145 mmol/L [facility] Potassium 4.6 3.5 - 5.0 mmol/L [facility] Comment: Please note: ??Patients with WBC >100,000 may have falsely elevated Potassium levels. ??For accurate Potassium quantification in these patients send serum separator tube (gold top) for subsequent determinations. ??Contact the Clinical Chemistry Laboratory if there are any questions. Chloride 99 98 - 107 mmol/L [facility] Carbon Dioxide 14(L) 22 - 31 mmol/L [facility] Anion Gap 21(H) 5 - 15 mmol/L [facility] Calcium 9.6 8.5 - 10.5 mg/dL [facility] Protein, Total 7.2 6.1 - 8.0 g/dL [facility] Albumin 3.7 3.2 - 5.2 g/dL [facility] Aspartate Aminotransferase 144(H) 0 - 30 unit/L [facility] Comment:result rechecked-ssc Alanine Aminotransferase 130(H) 0 - 30 unit/L [facility] Comment:result rechecked-ssc Alkaline Phosphatase 72 35 - 105 unit/L [facility] Bilirubin, Total 0.8 0.2 - 1.3 mg/dL [facility] Est Glomerular Filtration Rate 48(L) >=60 mL/min/1. 73 m?? [facility] Comment: This patient's estimated [...] Hollins MD CHEMISTRY ORDERABL ES [facility] [address] * EKG 12 Lead (05/10/2023 1:16 PM EDT) Ventricular rate 118 BPM MUSE SYSTEM Atrial Rate 118 BPM MUSE SYSTEM P-R Interval 152 ms MUSE SYSTEM QRS Duration 104 ms MUSE SYSTEM Q-T Interval 316 ms MUSE SYSTEM QTC Calculated (Bezet) 442 ms MUSE SYSTEM Calculated P Brandon 29 degrees MUSE SYSTEM Calculated R Brandon 18 degrees MUSE SYSTEM Calculated T Brandon -173 degrees MUSE SYSTEM INTERPRETATION Sinus tachycardia [...] Anterior leads Confirmed by MD Villareal Danette ([id number]) on 05/10/2023 8:47:46 PM MUSE SYSTEM 05/10/2023 1:16 PM EDT 05/10/2023 8:47 PM EDT Juan Luis Gonzalez MD ECG ORDERABLES MUSE SYSTEM * Lactate, whole blood, send to lab ([facility]) (05/10/2023 11:52 AM EDT) Lactate WB 1.8 0.5 - 2.2 mmol/L [facility] Blood 05/10/2023 11:5 2 AM EDT 05/10/2023 12:13 PM EDT Narrative Resulting Agency Comment Spec In Lab Juan Luis Gonzalez MD CHEMISTRY ORDERABLES Performing Organization Address [facility] Co de Phone Number [facility] [address] * XR Chest One View (05/10/2023 11:16 [...] have questions please contact the health rn transitional care that requested your imaging first. ? Electronically signed by: ALIX RUVALCABA MD, [facility] ([phone]), at 05/10/2023 1:25 PM Narrative 05/10/2023 1:25 [...] who have questions please contactthe health rn transitional care that requested your imaging first. Electronically signed by: ALIX RUVALCABA MD, [facility]([phone]), at 05/10/2023 1:25 PM Juan Luis Gonzalez MD IMG DX ORDERABLES * EKG 12 Lead (05/10/2023 7:59 AM EDT) Ventricular rate 115 BPM MUSE SYSTEM Atrial Rate 115 BPM MUSE SYSTEM P-R Interval 142 ms MUSE SYSTEM QRS Duration 102 ms MUSE SYSTEM Q-T Interval 322 ms MUSE SYSTEM QTC Calculated (Bezet) 445 ms MUSE SYSTEM Calculated P Brandon 36 degrees MUSE SYSTEM Calculated R Brandon 28 degrees MUSE SYSTEM Calculated T Brandon -119 degrees MUSE SYSTEM INTERPRETATION Sinus tachycardia with frequent Premature ventricular complexes and Fusion complexes ST & T wave abnormality, consider lateral ischemia Abnormal ECG When compared with ECG of 08-MAY-2023 15:51, No significant change was found I personally reviewed the tracing and edited the fellows interpretation Confirmed by fellow MD Anitha, Carissa ([id number]) on 05/11/2023 6:19:54 AM Confirmed by MD Tram, Chel ([id number]) on 05/11/2023 3:18:56 PM MUSE SYSTEM 05/10/2023 7:59 AM EDT 05/11/2023 3:18 PM EDT Radha Hollins MD ECG ORDERABLES MUSE SYSTEM * (ABNORMAL) Differential, Automated (05/10/2023 2:28 AM EDT) Neutrophil % 77.1 % [facility] Neutrophil Absolute 4.01 1.70 - 6.10 x10(3)/mc L [facility] Lymph % 14.0 % [facility] Lymphocytes Abs 0.7(L) 0.9 - 3.2 x10(3)/mc L [facility] Monocyte % 7.7 % [facility] Monocyte Abs 0.4 0.3 - 0.9 x10(3)/mc L [facility] Eos % 0.4 % [facility] Eosinophils Abs 0.0 0.0 - 0.4 x10(3)/mc L [facility] Basophil % 0.4 % [facility] Baso Absolute 0.0 0.0 - 0.1 x10(3)/mc L [facility] Immature Gran % 0.40 % [facility] Comment: Immature granulocytes(IG's)percentage and absolute count will include metamyelocytes, myelocytes, and promyelocytes. Blood smears from CBCs yielding IG's will be scanned manually for concordance. If this scan disagrees with the automated IG or if promyelocytes are noted, a manual differential will be performed. Immature Gran Absolute 0.02 0.00 - 0.04 x10(3)/mc L [facility] Blood 05/10/2023 2:28 AM EDT 05/10/2023 2:57 AM EDT Narrative Resulting Agency Comment Spec In Lab Klaudia Reid MD HEMATOLOGY OR DERABLES Performing Organization Address [facility] Co de Phone Number [facility] [address] * (ABNORMAL) Hemogram (05/10/2023 2:28 AM EDT) White Blood Cell 5.2 4.0 - 9.5 x10(3)/mc L [facility] Red Blood Cell 3.11(L) 4.00 - 5.21 x10(6)/[facility] Hemoglobin 10.2(L) 11.7 - 15.5 g/dL [facility] Hematocrit 30.2(L) 35.7 - 45.8 % [facility] Mean Cell Volume 97.1(H) 82.6 - 94.4 fL [facility] Mean Cell Hemoglobin 32.8(H) 27.1 - 32.0 pg [facility] Mean Cell Hemoglobin Concentration 33.8 31.7 - 35.0 g/dL [facility] Platelet 151 145 - 357 x10(3)/mc L [facility] RDW Standard Deviation 44.9 37.0 - 46.0 fL [facility] RDW coefficient of variation 12.8 11.5 - 14.1 % [facility] Mean Platelet Volume 9.8 7.6 - 12.[address] [facility] NRBC% auto 0.0 % [facility] NRBC Absolute 0.000 0.000 - 0.000 x10(3)/mc L [facility] Blood 05/10/2023 2:28 AM EDT 05/10/2023 2:57 AM EDT Narrative Resulting Agency Comment Spec In Lab Klaudia Reid MD HEMATOLOGY OR DERABLES [facility] [address] * (ABNORMAL) Comprehensive metabolic panel (non-fasting) (05/10/2023 2:28 AM EDT) Glucose 100 65 - 199 mg/dL [facility] Comment:Diabetes: >=200 mg/d L plus symptoms Blood Urea Nitrogen 30(H) 8 - 18 mg/dL [facility] Creatinine 0.90 0.70 - 1.20 mg/dL [facility] Sodium 134(L) 135 - 145 mmol/L [facility] Potassium 4.1 3.5 - 5.0 mmol/L [facility] Comment: Please note: ??Patients with WBC >100,000 may have falsely elevated Potassium levels. ??For accurate Potassium quantification in these patients send serum separator tube (gold top) for subsequent determinations. ??Contact the Clinical Chemistry Laboratory if there are any questions. Chloride 102 98 - 107 mmol/L [facility] Carbon Dioxide 20(L) 22 - 31 mmol/L [facility] Anion Gap 12 5 - 15 mmol/L [facility] Calcium 9.3 8.5 - 10.5 mg/dL [facility] Protein, Total 6.4 6.1 - 8.0 g/dL [facility] Albumin 3.7 3.2 - 5.2 g/dL [facility] Aspartate Aminotransferase 24 0 - 30 unit/L [facility] Alanine Aminotransferase 14 0 - 30 unit/L [facility] Alkaline Phosphatase 70 35 - 105 unit/L [facility] Bilirubin, Total 0.5 0.2 - 1.3 mg/dL [facility] Est Glomerular Filtration Rate 70 >=60 mL/min/1. 73 m?? [facility] Comment: This patient's estimated [...] ORDERABL ES Performing Organization Address [facility] de Phone Number [facility] [place] [address] * Heparin (unfractionated) Level (05/10/2023 2:28 AM EDT) Pathologist [facility] UF Heparin 0.37 IU/mL [facility] Comment: Heparin (anti-Xa) levels [...] Organization Address [facility] de Phone Number [facility] [address] * (ABNORMAL) Differential, Automated (05/09/2023 4:00 AM EDT) Neutrophil % 81.7 % [facility] Neutrophil Absolute 5.26 1.70 - 6.10 x10(3)/mc L [facility] Lymph % 10.7 % [facility] Lymphocytes Abs 0.7(L) 0.9 - 3.2 x10(3)/mc L [facility] Monocyte % 6.5 % [facility] Monocyte Abs 0.4 0.3 - 0.9 x10(3)/mc L [facility] Eos % 0.5 % [facility] Eosinophils Abs 0.0 0.0 - 0.4 x10(3)/ L [facility] Basophil % 0.3 % [facility] Baso Absolute 0.0 0.0 - 0.1 x10(3)/ L [facility] Immature Gran % 0.30 % [facility] Comment: Immature granulocytes(IG's)percentage and absolute count will include metamyelocytes, myelocytes, and promyelocytes. Blood smears from CBCs yielding IG's will be scanned manually for concordance. If this scan disagrees with the automated IG or if promyelocytes are noted, a manual differential will be performed. Immature Gran Absolute 0.02 0.00 - 0.04 x10(3)/ L [facility] Blood 05/09/2023 4:00 AM EDT 05/09/2023 4:19 AM EDT Narrative Resulting Agency Comment Spec In Lab Klaudia Reid MD HEMATOLOGY OR DERABLES [facility] [address] * (ABNORMAL) Hemogram (05/09/2023 4:00 AM EDT) White Blood Cell 6.4 4.0 - 9.5 x10(3)/mc L [facility] Red Blood Cell 3.15(L) 4.00 - 5.21 x10(6)/ L [facility] Hemoglobin 10.2(L) 11.7 - 15.5 g/dL [facility] Hematocrit 30.3(L) 35.7 - 45.8 % [facility] Mean Cell Volume 96.2(H) 82.6 - 94.4 fL [facility] Mean Cell Hemoglobin 32.4(H) 27.1 - 32.0 pg [facility] Mean Cell Hemoglobin Concentration 33.7 31.7 - 35.0 g/dL [facility] Platelet 151 145 - 357 x10(3)/mc L [facility] RDW Standard Deviation 44.7 37.0 - 46.[address] [facility] RDW coefficient of variation 12.8 11.5 - 14.1 % [facility] Mean Platelet Volume 9.4 7.6 - 12.[address] [facility] NRBC% auto 0.0 % [facility] NRBC Absolute 0.000 0.000 - 0.000 x10(3)/mc L [facility] Blood 05/09/2023 4:00 AM EDT 05/09/2023 4:19 AM EDT Narrative Resulting Agency Comment Spec In Lab Klaudia Reid MD HEMATOLOGY OR DERABLES Performing Organization Address City/[facility]/[place] [address] * Heparin (unfractionated) Level (05/09/2023 4:00 AM EDT) UF Heparin 0.47 IU/mL [facility] Comment: Heparin (anti-Xa) levels should be [...] MD HEMATOLOGY ORDERAB LES Performing Organization Address City/[facility]/ZIP Co de Phone Number [facility] [address] * (ABNORMAL) Comprehensive metabolic panel (non-fasting) (05/09/2023 4:00 AM EDT) Glucose 108 65 - 199 mg/dL [facility] Comment:Diabetes: >=200 mg/d L plus symptoms Blood Urea Nitrogen 31(H) 8 - 18 mg/dL [facility] Creatinine 1.03 0.70 - 1.20 mg/dL [facility] Sodium 137 135 - 145 mmol/L [facility] Potassium 4.4 3.5 - 5.0 mmol/L [facility] Comment: Please note: ??Patients with WBC >100,000 may have falsely elevated Potassium levels. ??For accurate Potassium quantification in these patients send serum separator tube (gold top) for subsequent determinations. ??Contact the Clinical Chemistry Laboratory if there are any questions. Chloride 102 98 - 107 mmol/L [facility] Carbon Dioxide 20(L) 22 - 31 mmol/L [facility] Anion Gap 15 5 - 15 mmol/L [facility] Calcium 9.3 8.5 - 10.5 mg/dL [facility] Protein, Total 6.6 6.1 - 8.0 g/dL [facility] Albumin 3.8 3.2 - 5.2 g/dL [facility] Aspartate Aminotransferase 32(H) 0 - 30 unit/L [facility] Alanine Aminotransferase 18 0 - 30 unit/L [facility] Alkaline Phosphatase 78 35 - 105 unit/L [facility] Bilirubin, Total 0.5 0.2 - 1.3 mg/dL [facility] Est Glomerular Filtration Rate 60 >=60 mL/min/1. 73 m?? [facility] Comment: This patient's estimated [...] MD CHEMISTRY ORDERABL ES Performing Organization Address [facility] Co de Phone Number [facility] [place] [address] * (ABNORMAL) pro-Brain Natriuretic Peptide (05/08/2023 4:00 PM EDT) NT-proBNP 25,503(H) <=124 pg/mL [facility] Blood Venous Draw / Unknown 05/08/2023 4:00 PM EDT 05/08/2023 4:25 PM EDT Narrative Resulting Agency Comment Spec In Lab Juan Luis Gonzalez MD CHEMISTRY ORDERABLES Performing Organization Address [facility] Co de Phone Number [facility] [place] [address] * Magnesium (05/08/2023 4:00 PM EDT) Magnesium 0.82 0.69 - 1.07 mmol/L [facility] Blood 05/08/2023 4:00 PM EDT 05/08/2023 4:06 PM EDT Narrative Resulting Agency Comment Spec In Lab Enrique Chua MD CHEMISTRY ORDERABLES Performing Organization Address [facility] Co de Phone Number [facility] [address] * Potassium (05/08/2023 4:00 PM EDT) Potassium [...] Narrative Resulting Agency Comment Spec In Lab Radah Hollins MD CHEMISTRY ORDERABL ES Performing Organization Address City/[facility] Co de Phone Number [facility] [place] [address] * Heparin (unfractionated) Level (05/08/2023 4:00 PM EDT) Pathologist [facility] UF Heparin 0.43 IU/mL [facility] [...] Organization Address [facility] [place] [address] * EKG 12 Lead (05/08/2023 3:51 PM EDT) Pathologist [facility] Ventricular rate 98 BPM MUSE SYSTEM Atrial Rate 98 BPM MUSE SYSTEM P-R Interval 150 ms MUSE SYSTEM QRS Duration 102 ms MUSE SYSTEM Q-T Interval 358 ms MUSE SYSTEM QTC Calculated (Bezet) 457 ms MUSE SYSTEM Calculated P Brandon 38 degrees MUSE SYSTEM Calculated R Brandon 48 degrees MUSE SYSTEM Calculated T Brandon -112 degrees MUSE SYSTEM INTERPRETATION Sinus rhythm with frequent and consecutive Premature ventricular and fusion complexes Septal infarct , age undetermined ST & T wave abnormality, consider anterolateral ischemia Abnormal ECG When compared with ECG of 09-NOV-2022 11:17, T wave inversion now evident in Anterolateral leads Confirmed by MD Harshil, Enrique Bell ([id number]) on 05/10/2023 8:11:46 AM MUSE SYSTEM 05/08/2023 3:51 PM EDT 05/10/2023 8:11 AM EDT Radha Hollins MD ECG ORDERABLES MUSE SYSTEM * (ABNORMAL) Differential, Automated (05/08/2023 11:38 AM EDT) Neutrophil % 71.3 % [facility] Neutrophil Absolute 2.91 1.70 - 6.10 x10(3)/mc L [facility] Lymph % 19.1 % [facility] Lymphocytes Abs 0.8(L) 0.9 - 3.2 x10(3)/mc L [facility] Monocyte % 9.0 % [facility] Monocyte Abs 0.4 0.3 - 0.9 x10(3)/mc L [facility] Eos % 0.2 % [facility] Eosinophils Abs 0.0 0.0 - 0.4 x10(3)/mc L [facility] Basophil % 0.2 % [facility] Baso Absolute 0.0 0.0 - 0.1 x10(3)/mc L [facility] Immature Gran % 0.20 % [facility] Comment: Immature granulocytes(IG's)percentage and absolute count will include metamyelocytes, myelocytes, and promyelocytes. Blood smears from CBCs yielding IG's will be scanned manually for concordance. If this scan disagrees with the automated IG or if promyelocytes are noted, a manual differential will be performed. Immature Gran Absolute 0.01 0.00 - 0.04 x10(3)/mc L [facility] Blood 05/08/2023 11:3 8 AM EDT 05/08/2023 11:44 AM EDT Narrative Resulting Agency Comment Spec In Lab Lincoln Sal MD HEMATOLOGY ORDERA BLES [facility] [address] * (ABNORMAL) Hemogram (05/08/2023 11:38 AM EDT) White Blood Cell 4.1 4.0 - 9.5 x10(3)/mc L [facility] Red Blood Cell 3.05(L) 4.00 - 5.21 x10(6)/mc L [facility] Hemoglobin 10.2(L) 11.7 - 15.5 g/dL [facility] Hematocrit 29.6(L) 35.7 - 45.8 % [facility] Mean Cell Volume 97.0(H) 82.6 - 94.4 fL [facility] Mean Cell Hemoglobin 33.4(H) 27.1 - 32.0 pg [facility] Mean Cell Hemoglobin Concentration 34.5 31.7 - 35.0 g/dL [facility] Platelet 136(L) 145 - 357 x10(3)/mc L [facility] RDW Standard Deviation 44.3 37.0 - 46.0 fL [facility] RDW coefficient of variation 12.6 11.5 - 14.1 % [facility] Mean Platelet Volume 9.4 7.6 - 12.[address] [facility] NRBC% auto 0.0 % [facility] NRBC Absolute 0.000 0.000 - 0.000 x10(3)/ L [facility] Blood 05/08/2023 11:3 8 AM EDT 05/08/2023 11:44 AM EDT Narrative Resulting Agency Comment Spec In Lab Lincoln Sal MD HEMATOLOGY ORDERA BLES Performing Organization Address City/State/[facility] Co de Phone Number [facility] [address] * TSH (05/08/2023 11:38 AM EDT) Thyroid Stimulating Hormone 1.27 0.27 - 4.20 mcIU/mL [facility] Comment: Reference Interval (mcIU/mL): Females: ??First Trimester: 0.23-3.88 ??Second Trimester: 0.22-3.90 ??Third Trimester: 0.44-4.66 Blood 05/08/2023 11:3 8 AM EDT 05/08/2023 11:44 AM EDT Narrative Resulting Agency Comment Spec In Lab Enrique Chua MD CHEMISTRY ORDERABLES Performing Organization Address City/[facility]/ZIP Co de Phone Number [facility] [address] * (ABNORMAL) Phosphorus (05/08/2023 11:38 AM EDT) Phosphorus 4.7(H) 2.5 - 4.5 mg/dL [facility] Blood 05/08/2023 11:3 8 AM EDT 05/08/2023 11:44 AM EDT Narrative Resulting Agency Comment Spec In Lab Enrique Chua MD CHEMISTRY ORDERABLES Performing Organization Address [facility] Co de Phone Number [facility] [address] * Magnesium (05/08/2023 11:38 AM EDT) Magnesium 0.76 0.69 - 1.07 mmol/L [facility] Blood 05/08/2023 11:3 8 AM EDT 05/08/2023 11:44 AM EDT Narrative Resulting Agency Comment Spec In Lab Enrique Chua MD CHEMISTRY ORDERABLES Performing Organization Address [facility] Co de Phone Number [facility] [address] * (ABNORMAL) Basic Metabolic Panel (non-fasting) (05/08/2023 11:38 AM EDT) Glucose 97 65 - 199 mg/dL [facility] Comment:Diabetes: >=200 mg/d L plus symptoms Blood Urea Nitrogen 27(H) 8 - 18 mg/dL [facility] Creatinine 1.02 0.70 - 1.20 mg/dL [facility] Sodium 139 135 - 145 mmol/L [facility] Potassium 4.2 3.5 - 5.0 mmol/L [facility] Comment: Please note: ??Patients with WBC >100,000 may have falsely elevated Potassium levels. ??For accurate Potassium quantification in these patients send serum separator tube (gold top) for subsequent determinations. ??Contact the Clinical Chemistry Laboratory if there are any questions. Chloride 105 98 - 107 mmol/L [facility] Carbon Dioxide 20(L) 22 - 31 mmol/L [facility] Anion Gap 14 5 - 15 mmol/L [facility] Calcium 9.4 8.5 - 10.5 mg/dL [facility] Est Glomerular Filtration Rate 60 >=60 mL/min/1. 73 m?? [facility] Comment: This patient's estimated [...] Chua MD CHEMISTRY ORDERABLES Performing Organization Address City/State/[facility] Co de Phone Number [facility] [address] * ECHO COMPLETE (05/08/2023 11:02 AM EDT) EF 25 HEARTLAB SYSTEM Anatomical Region Laterality Modality Cardiac Other 05/08/2023 10:0 3 AM EDT Narrative 05/08/2023 11:51 AM EDT ? Echocardiogram Report Name: PURNIMA THACKER ?Study Date: 05/08/2023 10:03 AMBP: 92/64 mmHg ? Patient Location: [facility]^CV29^A : 1955 ? Height: 155 cm ? Account: [id number] Age: 67 yrs ? Weight: 78 kg [...] worsening stenosis. Mitral regurgitation is similar. Procedure Complete-86326. Satisfactory quality. There is normal sinus rhythm. [...] SYSTEM^CV29^A : 1955 Height: 155 cm Account: [id number] Age: 67 yrs Weight: 78 kg Gender: [...] suggestsworsening stenosis. Mitral regurgitation is similar. Procedure Complete-88381. Satisfactory quality. There is normal sinus rhythm. [...] City/State/[facility] Co de Phone Number [facility] [address] documented in this encounter Visit Diagnoses Diagnosis [...] EVERY 6 HOURS PRN, Starting on Marquita 23 at 1740, Until 05/22/23 at 1246, Pain, [...] on Wed05/13/23 at 0900, Until Discontinued, Routine Given 05/22/2023 [...] on 05/17/23 at 0930, Until Discontinued, Routine Given 05/21/2023 [...] 0827 (Given - Provider: Kia Gallego RN) atorvastatin (Lipitor) tablet 10 mg 10 [...] Routine 0836 (Given - Provider: Gabino Calhoun RN)205 (Given - Provider: Favian Mckeon RN) 0832 [...] Routine documented in this encounter Care Teams Waste Disposal Leakage Tester Relationship Specialty Start Date End Date Magdalena Acosta MD [address] [place] [address] PCP - General Family Medicine 02/05/23 documented as of this encounter
--- OUTSIDE RECORDS SUMMARY | 2024-05-25 14:11 | XMS_ITS | Encounter Summary ---
Author Organization Formerly [facility], 1928–[address] [place] [address] Care Team Providers Care Accounts Payable Analyst Name Role Phone Magdalena Acosta MD Primary Care Provider [phone] Encounter Details Date Type Department Care Team (Late st Contact Info) Description 05/08/2023 [place] [phone] Luis Felipe Ott MD [facility] [place] [address] Social History Tobacco Use Types Packs/Day Years [...] Referring Provider: Nitesh Baltazar Patient Location: [facility] Presenting Symptoms per OSH: 67 year [...] diuresis with IV furosemide 20 x 1 ([id number] at rheumatology appointment), SpO2 85% on RA -> 95% on 2L NC, HR 120s. Examination significant for decreased breath sounds at the bases. Pertinent Diagnostic Findings: CBC - Hgb 10.5 CMP - Cr 1.1 BNP 25316 HsTrop 1358 Lactate 1.6 D-dimer 1183, CTPE [...] examined this patient. Luis Felipe Ott MD Recruiting Internship Received a call from provider emergently at 715am. Mentating well and BP 87/53. HR 108 and diursingwell. They were about to start phenylephrine which I stressed was not a good option given concern for severe and increasing afterload. She is warm on exam, mentating and urinating and we do not need to amrit a BP if those things remain stable. Nico Segura, PGY-6 [employer]iting Internship [id number] documented in this encounter Plan of Treatment Upcoming Encounters Date Type Department Care Team (Late st Contact Info) Description 06/01/2024 10:00 AM EDT Office [place] [phone] Magdalena Peralta MD [facility] [place] [address] 06/05/2024 2:00 PM EST Hospital Encounter Outpatient [place] [address] Markel Borjas MD [facility] DR HEMATOLOGY [place] [address] 06/05/2024 2:00 PM EST - 06/05/2024 3:00 PM EST Surgery Outpatient [place] [address] Markel Borjas MD [facility] DR HEMATOLOGY [place] [address] (OSC MSURG) BONE MARROW BIOPSY AND ASPIRATION; DIAGNOSTIC (WRVU 1.44) 06/23/2024 2:00 PM EST Office Visit Hematology [place] [address] Markel Borjas MD [facility] DR HEMATOLOGY [place] [address] 03/01/2025 4:15 PM EDT Office Visit Dermatology at [place] [address] [facility] [place] [address] Marek Bonilla MD [address], [place] [address] Scheduled Procedures Name Priority Associated Diagnoses Date/Ti me (OSC MSURG) BONE MARROW BIOPSY AND ASPIRATION; DIAGNOSTIC (WRVU 1.44) Anemia, in pt with longstanding neutropenia 06/05/2024 2:00 PM EST documented as of this encounter Visit Diagnoses Not on filedocumented in this encounter Care Teams Accounts Payable Analyst Relationship Specialty Start Date End Date Magdalena Acosta MD [address] [place] [address] PCP - General Family Medicine 02/05/23 documented as of this encounter
--- OUTSIDE RECORDS SUMMARY | 2024-05-25 14:11 | XMS_ITS | Encounter Summary ---
Author Organization [facility] [place] [address] Care Team Providers Care Facility Engineer Name Role Phone Ashley Quirogazac Shields APRN Primary Care Provider [phone] Encounter Details Date Type Department Care Team [...] 10:00 AM EDT Office [place] [address] Magdalena Peralta MD [facility] [place] [address] 06/05/2024 2:00 PM EST Hospital Encounter Outpatient [place] [phone] Markel Borjas MD [facility] [place] [address] 06/05/2024 2:00 PM EST - 06/05/2024 3:00 PM EST Surgery Outpatient [facility] [place] [address] Markel Borjas MD [facility] [place] [address] (OSC MSURG) BONE MARROW BIOPSY AND ASPIRATION; DIAGNOSTIC (WRVU 1.44) 06/23/2024 2:00 PM EST Office Visit Hematology [place] [address] Markel Borjas MD [facility] [place] [address] 03/01/2025 4:15 PM EDT Office Visit Dermatology at [place] [address] [facility] [place] [address] Marek Bonilla MD [address], [place] [address] Scheduled Procedures Name Priority Associated Diagnoses Date/Ti me (OSC MSURG) BONE MARROW BIOPSY AND ASPIRATION; DIAGNOSTIC (WRVU 1.44) Anemia, in pt with longstanding neutropenia 06/05/2024 2:00 PM EST documented as of this encounter Visit Diagnoses Not on filedocumented in this encounter Care Teams Facility Engineer Relationship Specialty Start Date End Date Deborah Quiroga APRN PCP - General Family Medicine 03/24/16 02/04/23 documented as of this encounter
--- OUTSIDE RECORDS SUMMARY | 2024-05-25 14:11 | XMS_ITS | Encounter Summary ---
[place] [address] Care Team Providers Care Procurement Specialist Name Role Phone Magdalena Acosta MD Primary Care Provider [phone] Encounter Details Date Type Department Care Team [...] 10:00 AM EDT Office [place] [address] Magdalena Peralta MD [facility] [address] 06/05/2024 2:00 PM EST Hospital Encounter Outpatient [place] [phone] Markel Borjas MD [facility] [place] [address] 06/05/2024 2:00 PM EST - 06/05/2024 3:00 PM EST Surgery [facility] [place] [address] Markel Borjas MD [facility] [address] [place] [address] (OSC MSURG) BONE MARROW BIOPSY AND ASPIRATION; DIAGNOSTIC (WRVU 1.44) 06/23/2024 2:00 PM EST Office Visit [place]ology [place] [phone] Markel Borjas MD [facility] [address] [place] [address] 03/01/2025 4:15 PM EDT Office Visit Dermatology at [place] [address] [facility] [place] [phone] Marek Bonilla MD [address], [place] [address] Scheduled Procedures Name Priority Associated Diagnoses Date/Ti me (OSC MSURG) BONE MARROW BIOPSY AND ASPIRATION; DIAGNOSTIC (WRVU 1.44) Anemia, in pt with longstanding neutropenia 06/05/2024 2:00 PM EST documented as of this encounter Visit Diagnoses Not on filedocumented in this encounter Care Teams Procurement Specialist Relationship Specialty Start Date End Date Magdalena Acosta MD [address] [place] [address] PCP - General Family Medicine 02/05/23 documented as of this encounter
--- OUTSIDE RECORDS SUMMARY | 2024-05-25 14:11 | XMS_ITS | Encounter Summary ---
[place] [address] Care Team Providers Care Edge Runner Name Role Phone Magdalena Acosta MD Primary Care Provider [phone] Reason for Visit * Reason Comments Annual Exam Encounter Details Date Type Department Care Team (Late st Contact Info) Description 02/05/2023 2:30 PM EDT Office Visit Dermatology at [address] [address] Marek Bonilla MD [address] [place] [address] Rosacea; Ocular rosacea; Nevus Social History Tobacco [...] cutaneous and ocular 2. Previously told by parcel contractor that she had corneal tears from her [...] 10:00 AM EDT Office [place] [phone] Magdalena Peralta MD [facility] [place] [address] 06/05/2024 2:00 PM EST Hospital Encounter [place]patient [place] [phone] Markel Borjas MD [facility] [place] [address] 06/05/2024 2:00 PM EST - 06/05/2024 3:00 PM EST Surgery [place] [phone] Markel Borjas MD [facility] [address] [place] [address] (OSC MSURG) BONE MARROW BIOPSY AND ASPIRATION; DIAGNOSTIC (WRVU 1.44) 06/23/2024 2:00 PM EST Office Visit Hematology [place] [address] Markel Borjas MD [facility] [address] [place] [address] 03/01/2025 4:15 PM EDT Office Visit Dermatology at [place] [address] [place] [address] Marek Bonilla MD [address], [place] [address] Scheduled Procedures Name Priority Associated Diagnoses Date/Ti me (OSC MSURG) BONE MARROW BIOPSY AND ASPIRATION; DIAGNOSTIC (WRVU 1.44) Anemia, in pt with longstanding neutropenia 06/05/2024 2:00 PM EST documented as of this encounter Visit Diagnoses Diagnosis Rosacea Ocular rosacea Rosacea Nevus Benign neoplasm of skin, site unspecified documented in this encounter Care Teams Edge Runner Relationship Specialty Start Date End Date Magdalena Acosta MD [address] [place] [address] PCP - General Family Medicine 02/05/23 documented as of this encounter
--- OUTSIDE RECORDS SUMMARY | 2024-05-25 14:11 | XMS_ITS | Encounter Summary ---
Author Organization [facility] [place] [address] Care Team Providers Care Applied Researcher Name Role Phone Deborah Quiroga APRN Primary Care Provider [phone] Reason for Referral * Consultation (Routine) - Closed Specialty Diagnoses / Procedures Referred By Crispin maxwell Referred To Contact Neurology Diagnoses Polyneuropathy Deborah Quiroga APRN [address] [place] [address] [facility] [address] [place] [phone] Referral ID Status Reason Start Date Expiration Date V isits Requested Visits Authorized [id number] Closed Consult, Test & Treat 10/29/2022 10/29/2023 1 1 Encounter Details Date Type Department Care Team (Latest Contact Info) Description 10/29/2022 Transcribe Orders eDH Incoming Referrals [phone] Deborah Quiroga APRN [address] [place] [address] Polyneuropathy (Primary Dx) Social History [...] 10:00 AM EDT Office Visit Rheumatology at [place] [phone] Magdalena Peralta MD [facility] [place] [address] 06/05/2024 2:00 PM EST Hospital Encounter Outpatient [place] [phone] Markel Borjas MD [facility] DR HEMATOLOGY [place] [address] 06/05/2024 2:00 PM EST - 06/05/2024 3:00 PM EST Surgery Outpatient [place] [phone] Markel Borjas MD [facility] DR HEMATOLOGY [place] [address] (OSC MSURG) BONE MARROW BIOPSY AND ASPIRATION; DIAGNOSTIC (WRVU 1.44) 06/23/2024 2:00 PM EST Office Visit Hematology [place] [address] Markel Borjas MD [facility] DR HEMATOLOGY [place] [address] 03/01/2025 4:15 PM EDT Office Visit Dermatology at [place] [address] [facility] [place] [address] Marek Bonilla MD [address] [place] [address] Scheduled Procedures Name Priority Associated Diagnoses Date/Ti [...] neuropathy documented in this encounter Care Teams Applied Researcher Relationship Specialty Start Date End Date Deborah Quiroga, CROSS COUNTRY COACH PCP - General Family Medicine 03/24/16 02/04/23 documented as of this encounter
--- OUTSIDE RECORDS SUMMARY | 2024-05-25 14:11 | XMS_ITS | Encounter Summary ---
Author Organization [facility] Erika l[address] [address] Care Team Providers Care Rail Project Engineer Name Role Phone Ashley Quirogan Sylvia ANURAG Primary Care Provider [phone] Encounter Details Date Type Department Care Team (Late st Contact Info) Description 11/02/2022 Orders [place] [address] Emily Lyons PA [facility] [place] [address] Aortic valve stenosis, etiology of cardiac valve [...] 10:00 AM EDT Office [place] [address] Magdalena Peralta MD [facility] RHEUMATOLOGY DEPT [place], [place] [address] 06/05/2024 2:00 PM EST Hospital Encounter Outpatient [place] [address] Markel Borjas MD [facility] DR HEMATOLOGY [place] [address] 06/05/2024 2:00 PM EST - 06/05/2024 3:00 PM EST Surgery Outpatient [place] [address] Markel Borjas MD [facility] DR HEMATOLOGY [place] [address] (OSC MSURG) BONE MARROW BIOPSY AND ASPIRATION; DIAGNOSTIC (WRVU 1.44) 06/23/2024 2:00 PM EST Office Visit Hematology [place] [address] Markel Borjas MD [facility] DR HEMATOLOGY [place] [address] 03/01/2025 4:15 PM EDT Office Visit Dermatology at [place] [address] [place] [phone] Marek Bonilla MD [address], [place] [address] Scheduled Procedures Name Priority Associated Diagnoses Date/Ti me (OSC MSURG) BONE MARROW BIOPSY AND ASPIRATION; DIAGNOSTIC (WRVU 1.44) Anemia, in pt with longstanding neutropenia 06/05/2024 2:00 PM EST documented as of this encounter Visit Diagnoses Diagnosis Aortic valve stenosis, etiology of cardiac valve disease unspecified documented in this encounter Care Teams Rail Project Engineer Relationship Specialty Start Date End Date Deborah Quiroga APRN PCP - General Family Medicine 03/24/16 02/04/23 documented as of this encounter
--- OUTSIDE RECORDS SUMMARY | 2024-05-25 14:11 | XMS_ITS | Encounter Summary ---
Author Organization [facility] [place] [address] Care Team Providers Care Manager Part Name Role Phone Ashley Quirogazac Shields APRN Primary Care Provider [phone] Encounter Details Date Type Department Care Team [...] 10:00 AM EDT Office [place] [address] Magdalena Peralta MD [facility] [place] [address] 06/05/2024 2:00 PM EST Hospital Encounter Outpatient [place] [address] Markel Borjas MD [facility] [place] [address] 06/05/2024 2:00 PM EST - 06/05/2024 3:00 PM EST Surgery Outpatient [facility] [place] [address] Markel Borjas MD [facility] DR [place] [address] (OSC MSURG) BONE MARROW BIOPSY AND ASPIRATION; DIAGNOSTIC (WRVU 1.44) 06/23/2024 2:00 PM EST Office Visit Hematology [place] [address] Markel Borjas MD [facility] DR [place] [address] 03/01/2025 4:15 PM EDT Office Visit Dermatology at [place] [address] [facility] [place] [address] Marek Bonilla MD [address], [place] [address] Scheduled Procedures Name Priority Associated Diagnoses Date/Ti me (OSC MSURG) BONE MARROW BIOPSY AND ASPIRATION; DIAGNOSTIC (WRVU 1.44) Anemia, in pt with longstanding neutropenia 06/05/2024 2:00 PM EST documented as of this encounter Visit Diagnoses Not on filedocumented in this encounter Care Teams Manager Part Relationship Specialty Start Date End Date Deborah Quiroga APRN PCP - General Family Medicine 03/24/16 02/04/23 documented as of this encounter
--- OUTSIDE RECORDS SUMMARY | 2024-05-25 14:11 | XMS_ITS | Encounter Summary ---
Author Organization [facility] [place] [address] Care Team Providers Care Sap Business Intelligence Consultant Name Role Phone Magdalena Acosta MD Primary Care Provider [phone] Encounter Details Date Type Department Care Team (Late st Contact Info) Description 02/17/2023 2:00 PM EDT Office Visit [place] [address] Alirio Esparza MD Aortic valve stenosis, etiology [...] 10:00 AM EDT Office Visit [place] [address] Magdalena Peralta MD [facility] [place] [address] 06/05/2024 2:00 PM EST Hospital Encounter Outpatient [place] [address] Markel Borjas MD [facility] [place] [address] 06/05/2024 2:00 PM EST - 06/05/2024 3:00 PM EST Surgery Outpatient [place] [address] Markel Borjas MD [facility] [place] [address] (OSC MSURG) BONE MARROW BIOPSY AND ASPIRATION; DIAGNOSTIC (WRVU 1.44) 06/23/2024 2:00 PM EST Office Visit Hematology [place] [address] Markel Borjas MD [facility] [place] [address] 03/01/2025 4:15 PM EDT Office Visit Dermatology at [address] [phone] Marek Bonilla MD [address], [place] [address] Scheduled Procedures Name Priority Associated Diagnoses Date/Ti me (OSC MSURG) BONE MARROW BIOPSY AND ASPIRATION; DIAGNOSTIC (WRVU 1.44) Anemia, in pt with longstanding neutropenia 06/05/2024 2:00 PM EST documented as of this encounter Visit Diagnoses Diagnosis Aortic valve stenosis, etiology of cardiac valve disease unspecified documented in this encounter Care Teams Sap Business Intelligence Consultant Relationship Specialty Start Date End Date Magdalena Acosta MD [address] [place] [address] PCP - General Family Medicine 02/05/23 documented as of this encounter
--- OUTSIDE RECORDS SUMMARY | 2024-05-25 14:11 | XMS_ITS | Encounter Summary ---
Author Organization [facility] Address [facility] [place] [address] Care Team Providers Care Staff Development Manager Name Role Phone Deborah Quiroga ANURAG Primary Care Provider [phone] Encounter Details Date Type Department Care Team (Late st Contact Info) Description 01/14/2023 Refill Dermatology at [address] [address] Lupe Connor RN Social History [...] She would like the medication called into [facility] in [facility]. Discussed [...] 10:00 AM EDT [place] [address] Magdalena Peralta MD [facility] [place] [address] 06/05/2024 2:00 PM EST Hospital Encounter Outpatient Surgery Center [place] [phone] Markel Borjas MD [facility] DR HEMATOLOGY [place] [address] 06/05/2024 2:00 PM EST - 06/05/2024 3:00 PM EST Surgery Outpatient [facility] [place] [phone] Markel Borjas MD [facility] DR HEMATOLOGY [place] [address] (OSC MSURG) BONE MARROW BIOPSY AND ASPIRATION; DIAGNOSTIC (WRVU 1.44) 06/23/2024 2:00 PM EST Office Visit Hematology and Oncology at [place] [phone] Markel Borjas MD [facility] DR [place] [address] 03/01/2025 4:15 PM EDT Office Visit Dermatology at [place] [address] [place] [address] Marek Bonilla MD [address], [place] [address] Scheduled Procedures Name Priority Associated Diagnoses Date/Ti me (OSC MSURG) BONE MARROW BIOPSY AND ASPIRATION; DIAGNOSTIC (WRVU 1.44) Anemia, in pt with longstanding neutropenia 06/05/2024 2:00 PM EST documented as of this encounter Visit Diagnoses Not on filedocumented in this encounter Care Teams Staff Development Manager Relationship Specialty Start Date End Date Deborah Quiroga, BOARD HANDLER PCP - General Family Medicine 03/24/16 02/04/23 documented as of this encounter
--- OUTSIDE RECORDS SUMMARY | 2024-05-25 14:11 | XMS_ITS | Encounter Summary ---
[place] [address] Care Team Providers Care Civil Laboratory Technician Name Role Phone Magdalena Acosta MD Primary Care Provider [phone] Encounter Details Date Type Department Care Team [...] 10:00 AM EDT Office [place] [address] Magdalena Peralta MD [facility] [place] [address] 06/05/2024 2:00 PM EST Hospital Encounter [place]patient [place] [phone] Markel Borjas MD [facility] HEMATOLOGY [place] [address] 06/05/2024 2:00 PM EST - 06/05/2024 3:00 PM EST Surgery Outpatient [place] [address] Markel Borjas MD [facility] DR HEMATOLOGY [place] [address] (OSC MSURG) BONE MARROW BIOPSY AND ASPIRATION; DIAGNOSTIC (WRVU 1.44) 06/23/2024 2:00 PM EST Office Visit [place] [phone] Markel Borjas MD [facility] DR HEMATOLOGY [place] [address] 03/01/2025 4:15 PM EDT Office Visit Dermatology at [place] [address] [facility] [place] [phone] Marek Bonilla MD [address], [place] [address] Scheduled Procedures Name Priority Associated Diagnoses Date/Ti me (OSC MSURG) BONE MARROW BIOPSY AND ASPIRATION; DIAGNOSTIC (WRVU 1.44) Anemia, in pt with longstanding neutropenia 06/05/2024 2:00 PM EST documented as of this encounter Visit Diagnoses Not on filedocumented in this encounter Care Teams Civil Laboratory Technician Relationship Specialty Start Date End Date Magdalena Acosta MD [address] [place] [address] PCP - General Family Medicine 02/05/23 documented as of this encounter
--- OUTSIDE RECORDS SUMMARY | 2024-05-25 14:11 | XMS_ITS | Encounter Summary ---
[place] [address] Care Team Providers Care Shipping Assistant Name Role Phone Magdalena Acosta MD Primary Care Provider [phone] Encounter Details Date Type Department Care Team [...] 10:00 AM EDT Office [place] [address] Magdalena Peralta MD [facility] [place] [address] 06/05/2024 2:00 PM EST Hospital Encounter [place]patient [place] [phone] Markel Borjas MD [facility] HEMATOLOGY [place] [address] 06/05/2024 2:00 PM EST - 06/05/2024 3:00 PM EST Surgery Out[facility] [place] [address] Markel Borjas MD [facility] DR HEMATOLOGY [place] [address] (OSC MSURG) BONE MARROW BIOPSY AND ASPIRATION; DIAGNOSTIC (WRVU 1.44) 06/23/2024 2:00 PM EST Office Visit Hematology [place] [phone] Markel Borjas MD [facility] DR HEMATOLOGY [place] [address] 03/01/2025 4:15 PM EDT Office Visit Dermatology at [place] [address] [facility] [place] [phone] Marek Bonilla MD [address], [place] [address] Scheduled Procedures Name Priority Associated Diagnoses Date/Ti me (OSC MSURG) BONE MARROW BIOPSY AND ASPIRATION; DIAGNOSTIC (WRVU 1.44) Anemia, in pt with longstanding neutropenia 06/05/2024 2:00 PM EST documented as of this encounter Visit Diagnoses Not on filedocumented in this encounter Care Teams Shipping Assistant Relationship Specialty Start Date End Date Magdalena Acosta MD [address] [place] [address] PCP - General Family Medicine 02/05/23 documented as of this encounter
--- OUTSIDE RECORDS SUMMARY | 2024-05-25 14:11 | XMS_ITS | Encounter Summary ---
Author Organization [facility] Address [facility] [place] [address] Care Team Providers Care Steel Fabricator Name Role Phone Ashley Quirogazac Shields APRN Primary Care Provider [phone] Reason for Referral * Consultation (Routine) - Closed Specialty Diagnoses / Procedures Referred By Contac t Referred To Contact Neurology Diagnoses Neck pain Popeye Rogers MD [facility] [place] [address] Kyra Haas MD [facility] [address] [address] Referral ID Status Reason Start Date Expiration Date V isits Requested Visits Authorized [id number] Closed Consult, Test & Treat 06/29/2022 06/29/2023 1 1 Reason for Visit * Reason Comments Neck Pain Weak in both arms, p ain and tingling in arms and hands Encounter Details Date Type Department Care Team (Late st Contact Info) Description 06/29/2022 10:20 AM EST Office Visit [facility] [place] [address] Popeye Rogers MD [facility] [place] [address] Neck pain Social History Tobacco Use Types [...] have EMG and nerve conduction studies in [place] that showed carpal tunnel syndrome. I do not have a copy of that report. documented in this encounter Plan of Treatment Upcoming Encounters Date Type Department Care Team (Late st Contact Info) Description 06/01/2024 10:00 AM EDT Office [place] [address] Magdalena Peralta MD [facility] [place] [address] 06/05/2024 2:00 PM EST Hospital Encounter Outpatient [place] [address] Markel Borjas MD [facility] [place]EMATOLOGY [place] [address] 06/05/2024 2:00 PM EST - 06/05/2024 3:00 PM EST Surgery Outpatient [place] [address] Markel Borjas MD [facility] HEM[place]OLOGY [place] [address] (OSC MSURG) BONE MARROW BIOPSY AND ASPIRATION; DIAGNOSTIC (WRVU 1.44) 06/23/2024 2:00 PM EST Office Visit Hematology [place] [address] Markel Borjas MD [facility] HEMATOLOGY [place] [address] 03/01/2025 4:15 PM EDT Office Visit Dermatology at [place] [address] [place] [address] Marek Bonilla MD [address], [place] [address] Scheduled Procedures Name Priority Associated Diagnoses Date/Ti [...] Cervicalgia documented in this encounter Care Teams Steel Fabricator Relationship Specialty Start Date End Date Deborah Quiroga APRN PCP - General Family Medicine 03/24/16 02/04/23 documented as of this encounter
--- OUTSIDE RECORDS SUMMARY | 2024-05-25 14:11 | XMS_ITS | Encounter Summary ---
Author Organization [facility] [place] [address] Care Team Providers Care Cloth Examiner Machine Name Role Phone Deborah Quiroga APRN Primary Care Provider [phone] Encounter Details Date Type Department Care Team (Latest Contact Info) Description 07/03/2022 1:36 PM EST - 07/03/2022 11:59 PM EST Hospital Encounter Hematology [place] [address] Discharge Disposition: Home Social History Tobacco Use [...] 10:00 AM EDT Office [place] [address] Magdalena Peralta MD [facility] [place] [address] 06/05/2024 2:00 PM EST Hospital Encounter Outpatient [place] [address] Markel Borjas MD [facility] HEMATOLOGY [place] [address] 06/05/2024 2:00 PM EST - 06/05/2024 3:00 PM EST Surgery Outpatient [place] [address] Markel Borjas MD [facility] HEMATOLOGY [place] [address] (OSC MSURG) BONE MARROW BIOPSY AND ASPIRATION; DIAGNOSTIC (WRVU 1.44) 06/23/2024 2:00 PM EST Office Visit Hematology [place] [address] Markel Borjas MD [facility] DR HEMATOLOGY [place] [address] 03/01/2025 4:15 PM EDT Office Visit Dermatology at [place] [address] [place] [address] Marek Bonilla MD [address], [place] [address] Scheduled Procedures Name Priority Associated Diagnoses Date/Ti [...] * Folate, serum (07/03/2022 1:59 PM EST) [facility] Folate >20.0 4.8 - 24.2 ng/mL [facility] Blood Venous Draw / Unknown 07/03/2022 1:59 PM EST 07/03/2022 2:13 PM EST Narrative Resulting Agency Comment Spec In Lab Markel Borjas MD CHEMISTRY ORDERABL ES [facility] [place] [address] * Vitamin B12 (07/03/2022 1:59 PM EST) Pathologist [facility] Vitamin B12 449 232 - 1,629 pg/mL [facility] Blood Venous Draw / Unknown 07/03/2022 1:59 PM EST 07/03/2022 2:13 PM EST Narrative Resulting Agency Comment Spec In Lab Markel Borjas MD CHEMISTRY ORDERABL ES Performing Organization Address City/State/[facility] Co de Phone Number [facility] [place] [place] [address] documented in this encounter Visit Diagnoses Not on filedocumented in this encounter Care Teams Cloth Examiner Machine Relationship Specialty Start Date End Date Deborah Quiroga APRN PCP - General Family Medicine 03/24/16 02/04/23 documented as of this encounter
--- OUTSIDE RECORDS SUMMARY | 2024-05-25 14:11 | XMS_ITS | Encounter Summary ---
[place] [address] Care Team Providers Care Manager Wind Name Role Phone Magdalena Acosta MD Primary Care Provider [phone] Encounter Details Date Type Department Care Team [...] 10:00 AM EDT Office [place] [address] Magdalena Peralta MD [facility] [place] [address] 06/05/2024 2:00 PM EST Hospital Encounter Outpatient [place] [address] Markel Borjas MD [facility] HEMATOLOGY [place] [address] 06/05/2024 2:00 PM EST - 06/05/2024 3:00 PM EST Surgery Outpatient Surgery Center [facility] [place] [address] Markel Borjas MD [facility] DR HEMATOLOGY [place] [address] (OSC MSURG) BONE MARROW BIOPSY AND ASPIRATION; DIAGNOSTIC (WRVU 1.44) 06/23/2024 2:00 PM EST Office Visit Hematology [place] [address] Markel Borjas MD [facility] DR HEMATOLOGY [place] [address] 03/01/2025 4:15 PM EDT Office Visit Dermatology at [place] [address] [facility] [place] [address] Marek Bonilla MD [address], [place] [address] Scheduled Procedures Name Priority Associated Diagnoses Date/Ti me (OSC MSURG) BONE MARROW BIOPSY AND ASPIRATION; DIAGNOSTIC (WRVU 1.44) Anemia, in pt with longstanding neutropenia 06/05/2024 2:00 PM EST documented as of this encounter Visit Diagnoses Not on filedocumented in this encounter Care Teams Manager Wind Relationship Specialty Start Date End Date Magdalena Acosta MD [address] [place] [address] PCP - General Family Medicine 02/05/23 documented as of this encounter
--- OUTSIDE RECORDS SUMMARY | 2024-05-25 14:11 | XMS_ITS | Encounter Summary ---
Author Organization [facility] [place] [address] Care Team Providers Care Raker Buffing Wheel Name Role Phone Magdalena Acosta MD Primary Care Provider [phone] Reason for Referral * Consultation (Routine) - Closed Specialty Diagnoses / Procedures Referred By Contac t Referred To Contact Rheumatology Diagnoses Weakness Kyra Haas MD [facility] [address] [place] [address] [facility] Rheumatology [address] [place] [phone] Referral ID Status Reason Start Date Expiration Date V isits Requested Visits Authorized [id number] Closed Consult, Test & Treat PCP Updated and/or Approved 02/25/2023 02/25/2024 6 6 Encounter Details Date Type Department Care Team (Late st Contact Info) Description 02/25/2023 Transcribe Orders eDH Incoming Referrals [phone] Magdalena Acosta MD [address] [place] [address] Weakness Social History Tobacco Use [...] 10:00 AM EDT Office Visit Rheumatology at [place] [phone] Magdalena Peralta MD [facility] [place] [address] 06/05/2024 2:00 PM EST Hospital Encounter Outpatient Surgery Center [place] [phone] Markel Borjas MD [facility] DR HEMATOLOGY [place] [address] 06/05/2024 2:00 PM EST - 06/05/2024 3:00 PM EST Surgery Outpatient [facility] [place] [phone] Markel Borjas MD [facility] DR HEMATOLOGY [place] [address] (OSC MSURG) BONE MARROW BIOPSY AND ASPIRATION; DIAGNOSTIC (WRVU 1.44) 06/23/2024 2:00 PM EST Office Visit [place]ology [place] [address] Markel Borjas MD [facility] DR [place] [address] 03/01/2025 4:15 PM EDT Office Visit Dermatology at [place] [address] [place] [address] Marek Bonilla MD [address], [place] [address] Scheduled Procedures Name Priority Associated Diagnoses Date/Ti [...] fatigue documented in this encounter Care Teams Raker Buffing Wheel Relationship Specialty Start Date End Date Magdalena Acosta MD [address] [place] [address] PCP - General Family Medicine 02/05/23 documented as of this encounter
--- OUTSIDE RECORDS SUMMARY | 2024-05-25 14:11 | XMS_ITS | Encounter Summary ---
[place] [address] Care Team Providers Care Diesel Mechanic Name Role Phone Magdalena Acosta MD Primary Care Provider [phone] Reason for Visit * Reason Comments Skin Lesion Encounter Details Date Type Department Care Team (Late st Contact Info) Description 04/20/2023 10:00 AM EDT Office Visit Dermatology at [address] [address] Marek Bonilla MD [address] [facility], [place] [address] Seborrheic keratosis Social History Tobacco Use Types [...] cutaneous and ocular 3. Previously told by binder selector that she had corneal tears from her [...] 10:00 AM EDT Office Visit [place] [address] Magdalena Peralta MD [facility] [place] [address] 06/05/2024 2:00 PM EST Hospital Encounter [place] [phone] Markel Borjas MD [facility] DR HEMATOLOGY [place] [address] 06/05/2024 2:00 PM EST - 06/05/2024 3:00 PM EST Surgery [place] [address] Markel Borjas MD [facility] DR HEMATOLOGY [place] [address] (OSC MSURG) BONE MARROW BIOPSY AND ASPIRATION; DIAGNOSTIC (WRVU 1.44) 06/23/2024 2:00 PM EST Office Visit Hematology [place] [address] Markel Borjas MD [facility] DR HEMATOLOGY [place] [address] 03/01/2025 4:15 PM EDT Office Visit Dermatology at [place] [address] [place] [address] Marek Bonilla MD [address], [place] [address] Scheduled Procedures Name Priority Associated Diagnoses Date/Ti me (OSC MSURG) BONE MARROW BIOPSY AND ASPIRATION; DIAGNOSTIC (WRVU 1.44) Anemia, in pt with longstanding neutropenia 06/05/2024 2:00 PM EST documented as of this encounter Visit Diagnoses Diagnosis Seborrheic keratosis Other seborrheic keratosis documented in this encounter Care Teams Diesel Mechanic Relationship Specialty Start Date End Date Magdalena Acosta MD [address] [place] [address] PCP - General Family Medicine 02/05/23 documented as of this encounter
--- OUTSIDE RECORDS SUMMARY | 2024-05-25 14:11 | XMS_ITS | Encounter Summary ---
Author Organization [facility] [place] [address] Care Team Providers Care Environmental Inspector Name Role Phone Magdalena Acosta MD Primary Care Provider [phone] Encounter Details Date Type Department Care Team (Latest Contact Info) Description 02/05/2023 9:33 PM EDT - 02/05/2023 11:59 PM EDT Hospital [place] [phone] Discharge Disposition: Home Social History Tobacco Use [...] 10:00 AM EDT Office [place] [address] Magdalena Peralta MD [facility] [place] [address] 06/05/2024 2:00 PM EST Hospital Encounter [place]patient [place] [address] Markel Borjas MD [facility] [place] [address] 06/05/2024 2:00 PM EST - 06/05/2024 3:00 PM EST Surgery [place] [address] Markel Borjas MD [facility] [place] [address] (OSC MSURG) BONE MARROW BIOPSY AND ASPIRATION; DIAGNOSTIC (WRVU 1.44) 06/23/2024 2:00 PM EST Office Visit Hematology [place] [address] Markel Borjas MD [facility] [place] [address] 03/01/2025 4:15 PM EDT Office Visit Dermatology at [place] [address] [place] [phone] Marek Bonilla MD [address] [place] [address] Scheduled Procedures Name Priority Associated Diagnoses Date/Ti [...] Report (02/05/2023 3:00 PM EDT) Final Diagnosis [id number] ? Location: OPW The signing pathologist has (i) examined the relevant preparation(s) for the specimen(s) and (ii) rendered or confirmed the diagnosis(es). . ?Surgical Pathology DIAGNOSIS Left upper back, skin punch biopsy: - ??Compound dysplastic ??melanocytic nevus with moderate atypia, transected at peripheral specimen edges ?? (see discussion) Electronically signed by: ?Vanna CULP, Jesse Shields Verified: ??02/16/2023 8:04 ?? Dermatopathologist Performed at: ??-[facility] Dept. of Pathology, [place] [address] Environmental Studies Department Chair: Kunal Rubi MD, FCAP, ??CLIA Certificate: [id number] DISCUSSION If there is an obvious clinical [...] EDT Marek Bonilla MD PATHOLOGY/CYTOLOGY O [facility] [address] [place] [address] documented in this encounter Visit Diagnoses Not on filedocumented in this encounter Care Teams Environmental Inspector Relationship Specialty Start Date End Date Magdalena Acosta MD [address] [place] [address] PCP - General Family Medicine 02/05/23 documented as of this encounter
--- OUTSIDE RECORDS SUMMARY | 2024-05-25 14:11 | XMS_ITS | Encounter Summary ---
Author Organization [facility] [place] [address] Care Team Providers Care Tube Repairer Name Role Phone Deborah Quiroga APRN Primary Care Provider [phone] Reason for Visit * Reason Comments Follow-up Encounter Details Date Type Department Care Team (Late st Contact Info) Description 07/03/2022 1:30 PM EST Office Visit Hematology [place] [address] Markel Borjas MD [facility] [address] HEMATOLOGY [place] [address] Consuelo Sommer APRN [facility] [address] [place]EMATOLOGY [place] [address] Chronic idiopathic neutropenia; Dysuria Social History Tobacco [...] 1:30 PM EST Hematology Outpatient Clinic [facility] Hematology Outpatient Consult Note CC: [...] TOUCH PREP, CLOT SECTION, CORE ??BIOPSY); [OSR# [id number], COLLECTED 06/23/2016, 19 SLIDES]: ?1. 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 Extremities: No edema. Labs: Hgb= 11.7 Rmwx=629 ANC= 2.5 Imaging As above - reviewed [...] 10:00 AM EDT Office [place] [phone] Magdalena Peralta MD [facility] [place] [address] 06/05/2024 2:00 PM EST Hospital Encounter Outpatient [place] [address] Markel Borjas MD [facility] HEMATOLOGY [place] [address] 06/05/2024 2:00 PM EST - 06/05/2024 3:00 PM EST Surgery Outpatient [place] [phone] Markel Borjas MD [facility] DR HEMATOLOGY [place] [address] (OSC MSURG) BONE MARROW BIOPSY AND ASPIRATION; DIAGNOSTIC (WRVU 1.44) 06/23/2024 2:00 PM EST Office Visit Hematology [place] [address] Markel Borjas MD [facility] HEMATOLOGY [place] [address] 03/01/2025 4:15 PM EDT Office Visit Dermatology at [place] [address] [place] [phone] Marek Bonilla MD [address], [place] [address] Scheduled Procedures Name Priority Associated Diagnoses Date/Ti [...] - GEN ERAL ORDERABLES Performing Organization Address [facility]/ZIP Co de Phone Number [facility] [place] [address] * (ABNORMAL) Urinalysis Microscopic Exam (07/03/2022 2:00 [...] Borjas MD URINE ORDERABLES Performing Organization Address [facility] Co de Phone Number [facility] [place] [address] * (ABNORMAL) Urinalysis with reflex Culture (07/03/2022 [...] LABORATORY Leukocytes, Urine Dipstick Small(A) Negative [facility] LABORATORY Appearance, Urine Dipstick Clear Clear [facility] Specific [place] Urine Automated 1.022 1.005 - 1.030 [facility] Color, Urine Dipstick Yellow Yellow [facility] Reflex to Culture Yes [facility] Clean Catch Urine 07/03/2022 2:00 PM EST 07/03/2022 2:29 PM EST Narrative Resulting Agency Comment Spec In Lab Markel Borjas MD URINE ORDERABLES [facility] [place] [address] * (ABNORMAL) Comprehensive metabolic panel (non-fasting) (07/03/2022 [...] CHEMISTRY ORDERABL ES [facility] [place] [address] documented in this encounter Visit Diagnoses Diagnosis Chronic idiopathic neutropenia Other neutropenia Dysuria documented in this encounter Care Teams Tube Repairer Relationship Specialty Start Date End Date Deborah Quiroga APRN PCP - General Family Medicine 03/24/16 02/04/23 documented as of this encounter
--- OUTSIDE RECORDS SUMMARY | 2024-05-25 14:11 | XMS_ITS | Encounter Summary ---
Author Organization [place] [address] Care Team Providers Care Store Administrative Assistant Name Role Phone Deborah Quiroga APRN Primary Care Provider [phone] Encounter Details Date Type Department Care Team (Latest Contact Info) Description 07/03/2022 12:28 PM EST - 07/03/2022 1:35 PM EST Hospital Encounter [place] [address] Chronic idiopathic neutropenia Discharge Disposition: Home Social [...] 10:00 AM EDT [place] [address] Magdalena Peralta MD [facility] [place] [address] 06/05/2024 2:00 PM EST Hospital Encounter [place]patient [place] [address] Markel Borjas MD [facility] HEMATOLOGY [place] [address] 06/05/2024 2:00 PM EST - 06/05/2024 3:00 PM EST Surgery [place] [address] Markel Borjas MD [facility] HEMATOLOGY [place] [address] (OSC MSURG) BONE MARROW BIOPSY AND ASPIRATION; DIAGNOSTIC (WRVU 1.44) 06/23/2024 2:00 PM EST Office Visit [place] [address] Markel Borjas MD [facility] [address] HEMATOLOGY [place] [address] 03/01/2025 4:15 PM EDT Office Visit Dermatology at [place] [address] [place] [phone] Marek Bonilla MD [address] [place] [address] Scheduled Procedures Name Priority Associated Diagnoses Date/Ti [...] 12:40 PM EST) Neutrophil % 72.9 % [facility] Neutrophil Absolute 2.61 1.70 - 6.10 x10(3)/mc L [facility] Lymph % 18.4 % [facility] Lymphocytes Abs 0.7(L) 0.9 - 3.2 x10(3)/mc L [facility] Monocyte % 8.4 % [facility] Monocyte Abs 0.3 0.3 - 0.9 x10(3)/[facility] LABORATORY Eos % 0.0 % [facility] Eosinophils Abs 0.0 0.0 - 0.4 x10(3)/[facility] LABORATORY Basophil % 0.3 % [facility] Baso Absolute 0.0 0.0 - 0.1 x10(3)/[facility] LABORATORY Immature Gran % [...] Gran Absolute 0.00 0.00 - 0.04 x10(3)/[facility] LAB[facility]AT[facility] Blood 07/03/2022 12:4 0 PM EST 07/03/2022 1:03 PM EST Narrative Resulting Agency Comment Spec In Lab Markel Borjas MD HEMATOLOGY ORDERAB LES Performing Organization Address City/State/[facility] [[email or web address]] Co de Phone Number [facility] [place] [address] * (ABNORMAL) Hemogram (07/03/2022 12:40 PM EST) White Blood Cell 3.6(L) 4.0 - 9.5 x10(3)/[facility] LAB[facility] Red Blood Cell 3.61(L) 4.00 - 5.21 x10(6)/[facility] LAB[facility] Hemoglobin 11.7 11.7 - [...] Platelet 171 145 - 357 x10(3)/mc L [facility] RDW Standard Deviation 40.5 37.0 - 46.0 fL [facility] RDW coefficient of variation 11.5 11.5 - 14.1 % [facility] Mean Platelet Volume 9.2 7.6 - 12.9 fL [facility] NRBC% auto 0.0 % [facility] NRBC Absolute 0.000 0.000 - 0.000 x10(3)/mc L [facility] Blood 07/03/2022 12:4 0 PM EST 07/03/2022 1:03 PM EST Narrative Resulting Agency Comment Spec In Lab Markel Borjas MD HEMATOLOGY ORDERAB LES [facility] [place] [address] * (ABNORMAL) Comprehensive metabolic panel (non-fasting) (07/03/2022 [...] CHEMISTRY ORDERABL ES [facility] [place] [address] documented in this encounter Visit Diagnoses Diagnosis Chronic idiopathic neutropenia Other neutropenia documented in this encounter Care Teams Store Administrative Assistant Relationship Specialty Start Date End Date Deborah Quiroga APRN PCP - General Family Medicine 03/24/16 02/04/23 documented as of this encounter
--- OUTSIDE RECORDS SUMMARY | 2024-05-25 14:11 | XMS_ITS | Encounter Summary ---
[place] [address] Care Team Providers Care Program Review Director Name Role Phone Magdalena Acosta MD Primary Care Provider [phone] Encounter Details Date Type Department Care Team [...] 10:00 AM EDT Office [place] [address] Magdalena Peralta MD [facility] [place] [address] 06/05/2024 2:00 PM EST Hospital Encounter Outpatient [place] [address] Markel Borjas MD [facility] HEMATOLOGY [place] [address] 06/05/2024 2:00 PM EST - 06/05/2024 3:00 PM EST [facility] [address] Markel Borjas MD [facility] DR HEMATOLOGY [place] [address] (OSC MSURG) BONE MARROW BIOPSY AND ASPIRATION; DIAGNOSTIC (WRVU 1.44) 06/23/2024 2:00 PM EST Office Visit Hematology [place] [address] Markel Borjas MD [facility] DR HEMATOLOGY [place] [address] 03/01/2025 4:15 PM EDT Office Visit Dermatology at [place] [address] [place] [address] Marek Bonilla MD [address], [place] [address] Scheduled Procedures Name Priority Associated Diagnoses Date/Ti me (OSC MSURG) BONE MARROW BIOPSY AND ASPIRATION; DIAGNOSTIC (WRVU 1.44) Anemia, in pt with longstanding neutropenia 06/05/2024 2:00 PM EST documented as of this encounter Visit Diagnoses Not on filedocumented in this encounter Care Teams Program Review Director Relationship Specialty Start Date End Date Magdalena Acosta MD [address] [place] [address] PCP - General Family Medicine 02/05/23 documented as of this encounter
--- OUTSIDE RECORDS SUMMARY | 2024-05-25 14:11 | XMS_ITS | Encounter Summary ---
Author Organization [facility] [place] [address] Care Team Providers Care Surgical Aide Name Role Phone Junaid Deborah Shields APRN Primary Care Provider [phone] Encounter Details Date Type Department Care Team (Latest Contact Info) Description 11/09/2022 10:37 AM EDT - 11/09/2022 4:53 PM EDT Hospital Encounter [place] [address] Nitesh Escobedo MD [facility] [place] [address] Aortic valve stenosis, etiology of cardiac valve [...] 2:30 PM Marek Bonilla MD [facility] [place] [place] New Medications to be Picked Up None For questions regarding this document or issues relating to this hospitalization on the Medical Service, please contact your inpatient physician through the [facility] Line Assembly Utility Worker . Issues afterhours and on weekends will be handled by the Hospitalist staff on-call. * Attachments The following attachments cannot be sent through Care Everywhere. * Coronary Angiogram: Post-op (Faroese) * Right Heart Catheterization: Pulmonary Artery Catheterization: Post-op (Faroese) documented in this encounter Medications at Time [...] MD - 11/09/2022 11:20 AM EDT . [facility] Interventional Cardiology Adult Pre-Procedure H&P Update: Cardiac Catheterization Purnima Thacker [id number] Chief Complaint: BONILLA HPI: Purnima Thacker [...] Marrero MD Interventional Cardiology 11/09/22 11:43 AM [facility] Pager: [phone] documented in this encounter Plan of Treatment Upcoming Encounters Date Type Department Care Team (Late st Contact Info) Description 06/01/2024 10:00 AM EDT Office [place] [address] Magdalena Peralta MD [facility] DR [place] [address] 06/05/2024 2:00 PM EST Hospital Encounter [place]patient [place] [address] Markel Borjas MD [facility] DR HEMATOLOGY [place] [address] 06/05/2024 2:00 PM EST - 06/05/2024 3:00 PM EST Surgery [place] [address] Markel Borjas MD [facility] DR HEMATOLOGY [place] [address] (OSC MSURG) BONE MARROW BIOPSY AND ASPIRATION; DIAGNOSTIC (WRVU 1.44) 06/23/2024 2:00 PM EST Office Visit Hematology [place] [address] Markel Borjas MD [facility] DR HEMATOLOGY [place] [address] 03/01/2025 4:15 PM EDT Office Visit Dermatology at [address] [place] [address] Marek Bonilla MD [address], [place] [address] Scheduled Procedures Name Priority Associated Diagnoses Date/Ti [...] & Arts W/Inj & Angio Img S&I ([id number]) 11/09/2022 11:51 AM EDT Aortic valve stenosis, etiology of cardiac valve disease unspecified EKG 12-LEAD Routine 11/09/2022 11:17 AM EDT Aortic valve stenosis, etiology of cardiac valve disease unspecified documented in this encounter Results * CARDIAC CATHETERIZATION (11/09/2022 1:05 PM EDT) Anatomical Region Laterality Modality Other Narrative 11/09/2022 2:01 PM EDT ?[facility] ? Cardiac Catheterization/Intervention Report ? Patient Name: Purnima Thacker. ? Procedure Date: 11/09/2022 ? A #: [id number] ? Primary Physician: Fanny, Nitesh Shields ? Case #: [id number] ? File Name: [id number] ? Catheterization Order Number: [id number] ? [facility] ? Final Report [place], [place] ? Patient Name: ? Purnimacaro Gallegol ? ID#: ?[id number] ? : ?1955 ? Procedure Date: ? [...] (Bezet) 457 ms MUSE SYSTEM Calculated P Holladay 44 degrees MUSE SYSTEM Calculated R Holladay 33 degrees MUSE SYSTEM Calculated T Holladay 30 degrees MUSE SYSTEM INTERPRETATION Sinus rhythm Occasional Premature ventricular complexes Otherwise normal ECG When compared with ECG of 21-SEP-2016 12:26, Premature ventricular complexes are now Present CA interval has decreased Nonspecific T wave abnormality has replaced inverted T waves in Inferior leads I personally reviewed the tracing and edited the fellows interpretation Confirmed by fellow MD Anitha, Carissa ([id number]) on 11/09/2022 6:17:28 PM Confirmed by Elsa [...] MD) documented in this encounter Care Teams Surgical Aide Relationship Specialty Start Date End Date Deborah Quiroga, ELEVATOR INSTALLER APPRENTICE PCP - General Family Medicine 03/24/16 02/04/23 documented as of this encounter
--- OUTSIDE RECORDS SUMMARY | 2024-05-25 14:11 | XMS_ITS | Encounter Summary ---
Author Organization [facility] Address [facility] [place] [address] Care Team Providers Care Project Management Consultant Name Role Phone Magdalena Acosta MD Primary Care Provider [phone] Encounter Details Date Type Department Care Team (Late st Contact Info) Description 04/27/2023 3:00 PM EDT Office [place] [address] Magdalena Peralta MD [facility] [place] [address] Mixed connective tissue disease Social History Tobacco [...] 1:5120 speckled; VIC negative; Myositis panel with STOVE BOTTOM WORKER ab 149.1 (positive); Anti U1RNP IgG 119; [...] 10:00 AM EDT Office [place] [address] Magdalena Peralta MD [facility] [place] [address] 06/05/2024 2:00 PM [facility] Hospital Encounter Outpatient [place] [address] Markel Borjas MD [facility] DR HEMATOLOGY [place] [address] 06/05/2024 2:00 PM EST - 06/05/2024 3:00 PM EST Surgery Outpatient [place] [address] Markel Borjas MD [facility] [address] HEMATOLOG[place] [address] (OSC MSURG) BONE MARROW BIOPSY AND ASPIRATION; DIAGNOSTIC (WRVU 1.44) 06/23/2024 2:00 PM EST Office Visit Hematology [place] [address] Markel Borjas MD [facility] [address] HEMATOLOGY [place] [address] 03/01/2025 4:15 PM EDT Office Visit Dermatology at [address] [address] Marek Bonilla MD [address] [facility], [place] [address] Scheduled Procedures Name Priority Associated Diagnoses Date/Ti me (OSC MSURG) BONE MARROW BIOPSY AND ASPIRATION; DIAGNOSTIC (WRVU 1.44) Anemia, in pt with longstanding neutropenia 06/05/2024 2:00 PM EST documented as of this encounter Visit Diagnoses Diagnosis Mixed connective tissue disease Other specified diffuse disease of connective tissue documented in this encounter Care Teams Project Management Consultant Relationship Specialty Start Date End Date Magdalena Acosta MD [address] [place] [address] PCP - General Family Medicine 02/05/23 documented as of this encounter
--- OUTSIDE RECORDS SUMMARY | 2024-05-25 14:11 | XMS_ITS | Encounter Summary ---
Author Organization [facility] [place] [address] Care Team Providers Care Javascript Ui Developer Name Role Phone Ashley Quirogazac Shields APRN Primary Care Provider [phone] Encounter Details Date Type Department Care Team [...] EDT Office [place] [address] Magdalena Peralta MD [facility] [address] 06/05/2024 2:00 PM EST Hospital Encounter [place]patient [place] [address] Markel Borjas MD [facility] [place] [address] 06/05/2024 2:00 PM EST - 06/05/2024 3:00 PM EST Surgery [facility] [place] [address] Markel Borjas MD [facility] [place] [address] (OSC MSURG) BONE MARROW BIOPSY AND ASPIRATION; DIAGNOSTIC (WRVU 1.44) 06/23/2024 2:00 PM EST Office Visit [place] [address] Markel Borjas MD [facility] [place] [address] 03/01/2025 4:15 PM EDT Office Visit Dermatology at [place] [address] [place] [address] Marek Bonilla MD [address] [place] [address] Scheduled Procedures Name Priority Associated Diagnoses Date/Ti me (OSC MSURG) BONE MARROW BIOPSY AND ASPIRATION; DIAGNOSTIC (WRVU 1.44) Anemia, in pt with longstanding neutropenia 06/05/2024 2:00 PM EST documented as of this encounter Visit Diagnoses Not on filedocumented in this encounter Care Teams Javascript Ui Developer Relationship Specialty Start Date End Date Deborah Quiroga APRN PCP - General Family Medicine 03/24/16 02/04/23 documented as of this encounter
--- OUTSIDE RECORDS SUMMARY | 2024-05-25 14:11 | XMS_ITS | Encounter Summary ---
Author Organization [facility] [place] [address] Care Team Providers Care Housing Quality Standard Inspector Name Role Phone Deborah Quiroga APRN Primary Care Provider [phone] Encounter Details Date Type Department Care Team (Late st Contact Info) Description 11/09/2022 11:30 AM EDT - 11/09/2022 12:30 PM EDT Surgery [place] [address] Nitesh Escobedo MD [facility] [place] [address] CARDIAC CATHETERIZATION Social History Tobacco Use Types [...] Center 02/05/2023 2:30 PM Marek Bonilla MD [facility] New Medications to be Picked Up None For questions regarding this document or issues relating to this hospitalization on the Medical Service, please contact your inpatient physician through the [facility] Proofer . Issues afterhours and on weekends will [...] topically 2 times daily as needed. 10/22/2022 Q[employer]ia SolutionsTouch Verio test strips Strip USE DAILY 01/03/2022 [employer] SolutionsToFamilyApp Delica Plus Lancet 33 gauge Misc USE [...] - 11/09/2022 11:20 AM EDT . [facility] Interventional Cardiology Adult Pre-Procedure H&P Update: Cardiac Catheterization Purnima Thacker [id number] 1955 Chief Complaint: BONILLA HPI: Purnima Thacker [...] MD Interventional Cardiology 11/09/22 11:43 AM [facility] Pager: [phone] documented in this encounter Plan of Treatment Upcoming Encounters Date Type Department Care Team (Late st Contact Info) Description 06/01/2024 10:00 AM EDT Office Visit [place] [address] Magdalena Peralta MD [facility] [place] [address] 06/05/2024 2:00 PM EST Hospital Encounter Outpatient [place] [phone] Markel Borjas MD [facility] DR [place] [address] 06/05/2024 2:00 PM EST - 06/05/2024 3:00 PM EST Surgery Outpatient [place] [phone] Markel Borjas MD [facility] DR [place] [address] (OSC MSURG) BONE MARROW BIOPSY AND ASPIRATION; DIAGNOSTIC (WRVU 1.44) 06/23/2024 2:00 PM EST Office Visit Hematology [place] [phone] Markel Borjas MD [facility] DR [place]EMAT[place] [address] 03/01/2025 4:15 PM EDT Office Visit Dermatology at [address] [place] [phone] Marek Bonilla MD [address], [place] [address] Scheduled Procedures Name Priority Associated Diagnoses Date/Ti [...] & Arts W/Inj & Angio Img S&I (10213) 11/09/2022 11:51 AM EDT Aortic valve stenosis, etiology of cardiac valve disease unspecified EKG 12-LEAD Routine 11/09/2022 11:17 AM EDT Aortic valve stenosis, etiology of cardiac valve disease unspecified documented in this encounter Results * CARDIAC CATHETERIZATION (11/09/2022 1:05 PM EDT) Anatomical Region Laterality Modality Other Narrative 11/09/2022 2:01 PM EDT ?[facility] ? Cardiac Catheterization/Intervention Report ? Patient Name: Purnima Thacker. ? Procedure Date: 11/09/2022 ? A #: [id number] ? Primary Physician: Nitesh Escobedo ? Case #: [id number] ? File Name: [id number] ? Catheterization Order Number: [id number] ? [facility] ? Final Report [place], [place] ? Patient Name: ? Purnima M. Kirstie ? ID#: ?[id number] ? : ?1955 ? Procedure Date: ? [...] (Bezet) 457 ms MUSE SYSTEM Calculated P [place] 44 degrees MUSE SYSTEM Calculated R [place] 33 degrees MUSE SYSTEM Calculated T [place] 30 degrees MUSE SYSTEM INTERPRETATION Sinus rhythm Occasional Premature ventricular complexes Otherwise normal ECG When compared with ECG of 21-SEP-2016 12:26, Premature ventricular complexes are now Present DE interval has decreased Nonspecific T wave abnormality has replaced inverted T waves in Inferior leads I personally reviewed the tracing and edited the fellows interpretation Confirmed by fellow MD Anitha, Carissa ([id number]) on 11/09/2022 6:17:28 PM Confirmed by Elsa [...] MD) documented in this encounter Care Teams Housing Quality Standard Inspector Relationship Specialty Start Date End Date Deborah Quiroga, ANURAG PCP - General Family Medicine 03/24/16 02/04/23 documented as of this encounter
--- OUTSIDE RECORDS SUMMARY | 2024-05-25 14:11 | XMS_ITS | Encounter Summary ---
Author Organization [facility] Address [facility] [place] [address] Care Team Providers Care Earth Sciences Professor Name Role Phone Magdalena Acosta MD Primary Care Provider [phone] Encounter Details Date Type Department Care Team (Late st Contact Info) Description 03/29/2023 Orders Only Cardiology at [address] [address] Ranjan Delgado MD [facility] [place] [address] Severe aortic stenosis (Primary Dx) Social History [...] 10:00 AM EDT Office [place] [address] Magdalena Peralta MD [facility] [place] [address] 06/05/2024 2:00 PM EST Hospital Encounter [place]patient [place] [address] Markel Borjas MD [facility] H[place]AT[place] [address] 06/05/2024 2:00 PM EST - 06/05/2024 3:00 PM EST Surgery [place] [address] Markel Borjas MD [facility] DR HEMATOLOGY [place] [address] (OSC MSURG) BONE MARROW BIOPSY AND ASPIRATION; DIAGNOSTIC (WRVU 1.44) 06/23/2024 2:00 PM EST Office Visit Hematology [place] [phone] Markel Borjas MD [facility] DR HEM[place] [address] 03/01/2025 4:15 PM EDT Office Visit Dermatology at [place] [address] [place] [phone] Marek Bonilla MD [address] [facility] [place] [address] Scheduled Orders Name Type Priority Associated Diagnoses [...] disorders documented in this encounter Care Teams Earth Sciences Professor Relationship Specialty Start Date End Date Magdalena Acosta MD [address] [place] [address] PCP - General Family Medicine 02/05/23 documented as of this encounter
--- OUTSIDE RECORDS SUMMARY | 2024-05-25 14:11 | XMS_ITS | Encounter Summary ---
Author Organization [facility] [place] [place] [address] Care Team Providers Care Steelscope Operator Name Role Phone Magdalena Acosta MD Primary Care Provider [phone] Encounter Details Date Type Department Care Team (Latest Contact Info) Description 03/18/2023 2:30 PM EDT Laboratory Appointment Lab [address] [place] [address] Positive FRANCISCO (antinuclear antibody) Social [...] 10:00 AM EDT Office Visit Rheumatology at [place] [phone] Magdalena Peralta MD [facility] [place] [address] 06/05/2024 2:00 PM EST Hospital Encounter Outpatient Surgery Center [place] [phone] Markel Borjas MD [facility] [place] [address] 06/05/2024 2:00 PM EST - 06/05/2024 3:00 PM EST Surgery Outpatient [place] [address] Markel Borjas MD [facility] DR HEMATOLOGY [place] [address] (OSC MSURG) BONE MARROW BIOPSY AND ASPIRATION; DIAGNOSTIC (WRVU 1.44) 06/23/2024 2:00 PM EST Office Visit H[place]ology [place] [phone] Markel Borjas MD [facility] DR HEMATOLOGY [place] [address] 03/01/2025 4:15 PM EDT Office Visit Dermatology at [place] [address] [place] [address] Marek Bonilla MD [address], [address] DERMATOLOGY [place], [place] [phone] Scheduled Procedures Name Priority Associated Diagnoses Date/Ti [...] 2:14 PM EDT) Neutrophil % 71.2 % [facility] Neutrophil Absolute 2.26 1.70 - 6.10 x10(3)/mc L [facility] Lymph % 18.2 % [facility] Lymphocytes Abs 0.6(L) 0.9 - 3.2 x10(3)/mc L [facility] Monocyte % 9.7 % [facility] Monocyte Abs 0.3 0.3 - 0.9 x10(3)/mc L [facility] Eos % 0.3 % [facility] Eosinophils Abs 0.0 0.0 - 0.4 x10(3)/mc L [facility] Basophil % 0.6 % [facility] Baso Absolute 0.0 0.0 - 0.1 x10(3)/mc L [facility] Immature Gran % 0.00 % [facility] Comment: Immature granulocytes(IG's)percentage and absolute count will include metamyelocytes, myelocytes, and promyelocytes. Blood smears from CBCs yielding IG's will be scanned manually for concordance. If this scan disagrees with the automated IG or if promyelocytes are noted, a manual differential will be performed. Immature Gran Absolute 0.00 0.00 - 0.04 x10(3)/mc L [facility] Blood 03/18/2023 2:14 PM EDT 03/18/2023 2:24 PM EDT Narrative Resulting Agency Comment Spec In Lab Magdalena Peralta MD HEMATOLOGY ORDERABLE S [facility] [place] [address] * (ABNORMAL) Hemogram (03/18/2023 2:14 PM EDT) White Blood Cell 3.2(L) 4.0 - 9.5 x10(3)/mc L [facility] Red Blood Cell 3.44(L) 4.00 - 5.21 x10(6)/mc L [facility] Hemoglobin 11.1(L) 11.7 - 15.5 g/dL [facility] Hematocrit 32.9(L) 35.7 - 45.8 % [facility] Mean Cell Volume 95.6(H) 82.6 - 94.4 fL [facility] Mean Cell Hemoglobin 32.3(H) 27.1 - 32.0 pg [facility] Mean Cell Hemoglobin Concentration 33.7 31.7 - 35.0 g/dL [facility] Platelet 144(L) 145 - 357 x10(3)/mc L [facility] RDW Standard Deviation 42.6 37.0 - 46.0 fL [facility] RDW coefficient of variation 12.3 11.5 - 14.1 % [facility] Mean Platelet Volume 9.4 7.6 - 12.9 fL [facility] NRBC% auto 0.0 % [facility] NRBC Absolute 0.000 0.000 - 0.000 x10(3)/mc L [facility] Blood 03/18/2023 2:14 PM EDT 03/18/2023 2:24 PM EDT Narrative Resulting Agency Comment Spec In Lab Magdalena Peralta MD HEMATOLOGY ORDERABLE S Performing Organization Address [facility] Co de Phone Number [facility] [place] [address] * (ABNORMAL) Sedimentation rate (03/18/2023 2:14 PM EDT) Sedimentation Rate Automated 68(H) 2 - 39 mm/hr [facility] Comment: Effective July 12, 2019 new capillary photometric technology has resulted in a change in reference ranges. It is recommended that each ESR result be reviewed with its own age appropriate reference range. Blood 03/18/2023 2:14 PM EDT 03/18/2023 2:24 PM EDT Narrative Resulting Agency Comment Spec In Lab Kia Viramontes DO HEMATOLOGY ORDERAB LES Performing Organization Address [facility] Co de Phone Number [facility] [place] [address] * CRP, acute inflammation (03/18/2023 2:14 PM EDT) C-Reactive Protein 3.0 <=4.9 mg/L [facility] Blood 03/18/2023 2:14 PM EDT 03/18/2023 2:24 PM EDT Narrative Resulting Agency Comment Spec In Lab Kia Viramontes DO CHEMISTRY ORDERABL ES Performing Organization Address [facility] Co de Phone Number [facility] [place] [address] * C3 Complement (03/18/2023 2:14 PM EDT) Complement C3 142 90 - 180 mg/dL [facility] Blood 03/18/2023 2:14 PM EDT 03/18/2023 2:24 PM EDT Narrative Resulting Agency Comment Spec In Lab Kia Viramontes DO CHEMISTRY ORDERABL ES Performing Organization Address [facility] Co de Phone Number [facility] [place] [address] * C4 Complement (03/18/2023 2:14 PM EDT) Complement C4 30 10 - 40 mg/dL [facility] Blood 03/18/2023 2:14 PM EDT 03/18/2023 2:24 PM EDT Narrative Resulting Agency Comment Spec In Lab Kia Viramontes DO CHEMISTRY ORDERABL ES Performing Organization Address [facility] de Phone Number [facility] [place] [address] * CK (03/18/2023 2:14 PM EDT) Pathologist [facility] Creatine Kinase 38 0 - 160 unit/L [facility] Blood 03/18/2023 2:14 PM EDT 03/18/2023 2:24 PM EDT Narrative Resulting Agency Comment Spec In Lab Kia Viramontes DO CHEMISTRY ORDERABL ES Performing Organization Address [facility] de Phone Number [facility] [place] [address] * DNA Antibody (Double-Stranded) (03/18/2023 2:14 PM EDT) Pathologist [facility] dsDNA Ab <0.6 <=15.0 IU/mL [facility] Comment: <10 negative 10-15 equivocal >15 positive This dsDNA antibody result was generated using a fluoroenzyme immunoassay on the farmbuy 250 analyzer. This quantitative test is designed [...] Spec In Lab Kia D Wander DO LAB SEND OUT ORDER JODIE Performing Organization Address [facility]/ZIP Co de Phone Number [facility] [address] [place] [address] * (ABNORMAL) FRANCISCO Ab by IFA (03/18/2023 2:14 PM EDT) FRANCISCO Ab Screen Test ? Result ?Flag ??Unit ??RefValue Antinuclear Ab, HEp-2 ?Positive 1:2560 ??@ ?<1:80 (Negative) ??Substrate, S ? ADDITIONAL INFORMATION --------- ?Method: Immunofluorescence using HEp-2 cellular substrate. ??FRANCISCO Titer: ? 1:2560 ??FRANCISCO Pattern: ? Speckled ?Test Performed by: ?[facility] ?[address] [place] [address] ?Bridge Inspector: Raymond Chaudhry M.D. Ph.D.; CLIA# [id number] ([id number]) [facility] Blood 03/18/2023 2:14 PM EDT 03/18/2023 3:02 PM EDT Narrative Resulting Agency Comment Spec In Lab Kia Viramontes DO CHEMISTRY ORDERABL ES [facility] [address] * Comprehensive metabolic panel (non-fasting) (03/18/2023 2:14 PM EDT) Glucose 93 65 - 199 mg/dL [facility] Comment:Diabetes: >=200 mg/d L plus symptoms Blood Urea Nitrogen 18 8 - 18 mg/dL [facility] Creatinine 0.99 0.70 - 1.20 mg/dL [facility] Sodium 141 135 - 145 mmol/L [facility] Potassium 4.5 3.5 - 5.0 mmol/L [facility] Comment: Please note: ??Patients with WBC >100,000 may have falsely elevated Potassium levels. ??For accurate Potassium quantification in these patients send serum separator tube (gold top) for subsequent determinations. ??Contact the Clinical Chemistry Laboratory if there are any questions. Chloride 106 98 - 107 mmol/L [facility] Carbon Dioxide 24 22 - 31 mmol/L [facility] Anion Gap 11 5 - 15 mmol/L [facility] Calcium 10.0 8.5 - 10.5 mg/dL [facility] Protein, Total 7.3 6.1 - 8.0 g/dL [facility] Albumin 4.3 3.2 - 5.2 g/dL [facility] Aspartate Aminotransferase 26 0 - 30 unit/L [facility] Alanine Aminotransferase 11 0 - 30 unit/L [facility] Alkaline Phosphatase 91 35 - 105 unit/L [facility] Bilirubin, Total 0.4 0.2 - 1.3 mg/dL [facility] Est Glomerular Filtration Rate 62 >=60 mL/min/1. 73 m?? [facility] [...] DO CHEMISTRY ORDERABL ES Performing Organization Address City/State/[facility] Co de Phone Number [facility] [place] [address] documented in this encounter Visit Diagnoses Diagnosis Positive FRANCISCO (antinuclear antibody) Other and unspecified nonspecific immunological findings documented in this encounter Care Teams Steelscope Operator Relationship Specialty Start Date End Date Magdalena Acosta MD [address] [place] [address] PCP - General Family Medicine 02/05/23 documented as of this encounter
--- OUTSIDE RECORDS SUMMARY | 2024-05-25 14:11 | XMS_ITS | Encounter Summary ---
[place] [address] Care Team Providers Care Crop Insurance Claims Adjuster Name Role Phone Magdalena Acosta MD Primary Care Provider [phone] Reason for Visit * Reason Comments Suture / Staple Removal Encounter Details Date Type Department Care Team (Late st Contact Info) Description 02/16/2023 10:00 AM EDT Office Visit Dermatology at [place] [address] [place] [phone] Marek Bonilla MD [address] [facility], [address] DERMATOLOGY [place], [place] [phone] Visit for suture removal Social History Tobacco [...] 10:00 AM EDT Office Visit Rheumatology at [place] [phone] Magdalena Peralta MD [facility] DR [place] [address] 06/05/2024 2:00 PM EST Hospital Encounter Outpatient Surgery Center [place] [phone] Markel Borjas MD [facility] DR HEMATOLOGY [place] [address] 06/05/2024 2:00 PM EST - 06/05/2024 3:00 PM EST Surgery [place] [phone] Markel Borjas MD [facility] DR HEMATOLOGY [place] [address] (OSC MSURG) BONE MARROW BIOPSY AND ASPIRATION; DIAGNOSTIC (WRVU 1.44) 06/23/2024 2:00 PM EST Office Visit Hematology [place] [phone] Markel Borjas MD [facility] DR HEMATOLOGY [place] [address] 03/01/2025 4:15 PM EDT Office Visit Dermatology at [address] [place] [phone] Marek Bonilla MD [address] [place] [address] Scheduled Procedures Name Priority Associated Diagnoses Date/Ti me (OSC MSURG) BONE MARROW BIOPSY AND ASPIRATION; DIAGNOSTIC (WRVU 1.44) Anemia, in pt with longstanding neutropenia 06/05/2024 2:00 PM EST documented as of this encounter Visit Diagnoses Diagnosis Visit for suture removal Encounter for removal of sutures documented in this encounter Care Teams Crop Insurance Claims Adjuster Relationship Specialty Start Date End Date Magdalena Acosta MD [address] [place] [address] PCP - General Family Medicine 02/05/23 documented as of this encounter
--- OUTSIDE RECORDS SUMMARY | 2024-05-25 14:11 | XMS_ITS | Encounter Summary ---
[place] [address] Care Team Providers Care Manager Pet Name Role Phone Magdalena Acosta MD Primary Care Provider [phone] Encounter Details Date Type Department Care Team [...] 10:00 AM EDT Office [place] [address] Magdalena Peralta MD [facility] [place] [address] 06/05/2024 2:00 PM EST Hospital Encounter Outpatient [place] [phone] Markel Borjas MD [facility] [place] [address] 06/05/2024 2:00 PM EST - 06/05/2024 3:00 PM EST Surgery Outpatient [facility] [place] [address] Markel Borjas MD [facility] DR [place] [address] (OSC MSURG) BONE MARROW BIOPSY AND ASPIRATION; DIAGNOSTIC (WRVU 1.44) 06/23/2024 2:00 PM EST Office Visit [place]ematology [place] [phone] Markel Borjas MD [facility] DR [place] [address] 03/01/2025 4:15 PM EDT Office Visit Dermatology at [place] [address] [facility] [place] [phone] Marek Bonilla MD [address] [place] [address] Scheduled Procedures Name Priority Associated Diagnoses Date/Ti me (OSC MSURG) BONE MARROW BIOPSY AND ASPIRATION; DIAGNOSTIC (WRVU 1.44) Anemia, in pt with longstanding neutropenia 06/05/2024 2:00 PM EST documented as of this encounter Visit Diagnoses Not on filedocumented in this encounter Care Teams Manager Pet Relationship Specialty Start Date End Date Magdalena Acosta MD [address] [place] [address] PCP - General Family Medicine 02/05/23 documented as of this encounter
--- OUTSIDE RECORDS SUMMARY | 2024-05-25 14:11 | XMS_ITS | Encounter Summary ---
Author Organization [facility]ly [facility] Address [facility] [place] [address] Care Team Providers Care Lead Trainer Name Role Phone Magdalena Acosta MD Primary Care Provider [phone] Reason for Visit * Consultation (Routine) - Closed Specialty Diagnoses / Procedures Referred By Contac t Referred To Contact Rheumatology Diagnoses Weakness Kyra Haas MD [facility] [address] [place] [address] [facility] Rheumatology [address] [place] [phone] Referral ID Status Reason Start Date Expiration Date V isits Requested Visits Authorized [id number] Closed Consult, Test & Treat PCP Updated and/or Approved 02/25/2023 02/25/2024 6 6 Encounter Details Date Type Department Care Team (Late st Contact Info) Description 03/18/2023 1:00 PM EDT Office [place] [address] Kia Viramontes DO [facility] [place] [address] Magdalena Peralta MD [facility] [place] [address] Positive FRANCISCO (antinuclear antibody) Social [...] 1:5120 speckled VIC negative Myositis panel with CHILD AND FAMILY THERAPIST ab 149.1 (positive) Anti U1RNP IgG 119 [...] a chair without assistance of upper extremities. Hazardous Material Technician strength 3+/5 bilaterally; otherwise large muscle groups [...] due to risk of retinal toxicity with manager long term care Plaquenil use, which she already does. Recommendations: #mixed connective tissue disease Start hydroxychloroquine 200 mg qd Labs today: repeat FRANCISCO, dsDNA, complements, CBC, CMP, CK, ESR, CRP Follow up 1 month The patient was seen and discussed with Dr. Wander Peralta MD Rheumatology Fellow Pager: [phone] CC: Kyra Haas * Kia Viramontes DO - 03/18/2023 1:00 PM EDT ATTENDING ADDENDUM The patient's history was reviewed, and I interviewed and examined the patient with Dr. Peralta. Catalina with her summary, findings, and plan. documented in this encounter Plan of Treatment Upcoming Encounters Date Type Department Care Team (Late st Contact Info) Description 06/01/2024 10:00 AM EDT Office [place] [phone] Magdalena Peralta MD [facility] [place] [address] 06/05/2024 2:00 PM EST Hospital Encounter Outpatient [place] [address] Markel Borjas MD [facility] DR HEMAT[place] [address] 06/05/2024 2:00 PM EST - 06/05/2024 3:00 PM EST Surgery Outpatient [place] [address] Markel Borjas MD [facility] DR [place]AT[place] [address] (OSC MSURG) BONE MARROW BIOPSY AND ASPIRATION; DIAGNOSTIC (WRVU 1.44) 06/23/2024 2:00 PM EST Office Visit Hematology [place] [address] Markel Borjas MD [facility] DR HEMAT[place] [address] 03/01/2025 4:15 PM EDT Office Visit Dermatology at [address] [phone] Marek Bonilla MD [address] [place], [place] [id number] Scheduled Procedures Name Priority Associated Diagnoses Date/Ti me (OSC MSURG) BONE MARROW BIOPSY AND ASPIRATION; DIAGNOSTIC (WRVU 1.44) Anemia, in pt with longstanding neutropenia 06/05/2024 2:00 PM EST documented as of this encounter Results * Comprehensive metabolic panel (non-fasting) (03/18/2023 2:14 PM EDT) Glucose 93 65 - 199 mg/dL [facility] Comment:Diabetes: >=200 mg/d L plus symptoms Blood Urea Nitrogen 18 8 - 18 mg/dL [facility] Creatinine 0.99 0.70 - 1.20 mg/dL [facility] Sodium 141 135 - 145 mmol/L [facility] Potassium 4.5 3.5 - 5.0 mmol/L [facility] Comment: Please note: ??Patients with WBC >100,000 may have falsely elevated Potassium levels. ??For accurate Potassium quantification in these patients send serum separator tube (gold top) for subsequent determinations. ??Contact the Clinical Chemistry Laboratory if there are any questions. Chloride 106 98 - 107 mmol/L [facility] Carbon Dioxide 24 22 - 31 mmol/L [facility] Anion Gap 11 5 - 15 mmol/L [facility] Calcium 10.0 8.5 - 10.5 mg/dL [facility] Protein, Total 7.3 6.1 - 8.0 g/dL [facility] Albumin 4.3 3.2 - 5.2 g/dL [facility] Aspartate Aminotransferase 26 0 - 30 unit/L [facility] Alanine Aminotransferase 11 0 - 30 unit/L [facility] Alkaline Phosphatase 91 35 - 105 unit/L [facility] Bilirubin, Total 0.4 0.2 - 1.3 mg/dL [facility] Est Glomerular Filtration Rate 62 >=60 mL/min/1. 73 m?? [facility] Comment: This patient's estimated GFR [...] Resulting Agency Comment Spec In Lab Kia Vriamontes DO CHEMISTRY ORDERABL ES [facility] [place] [address] * (ABNORMAL) FRANCISCO Ab by IFA (03/18/2023 2:14 PM EDT) FRANCISCO Ab Screen Test ? Result ?Flag ??Unit ??RefValue Antinuclear Ab, HEp-2 ?Positive 1:2560 ??@ ?<1:80 (Negative) ??Substrate, S ? ADDITIONAL INFORMATION --------- ?Method: Immunofluorescence using HEp-2 cellular substrate. ??FRANCISCO Titer: ? 1:2560 ??FRANCISCO Pattern: ? Speckled ?Test Performed by: ?[facility] ?[address] [place] [address] ?Press Offbearer: Raymond Chaudhry M.D. Ph.D.; CLIA# [id number] ([id number]) [facility] Blood 03/18/2023 2:14 PM EDT 03/18/2023 3:02 PM EDT Narrative Resulting Agency Comment Spec In Lab Kia Viramontes DO CHEMISTRY ORDERABL ES Performing Organization Address [facility] Co de Phone Number [facility] [place] [address] * DNA Antibody (Double-Stranded) (03/18/2023 2:14 PM EDT) dsDNA Ab <0.6 <=15.0 IU/mL [facility] Comment: <10 negative 10-15 equivocal >15 positive This dsDNA antibody result was generated using a fluoroenzyme immunoassay on the [employer] 250 analyzer. This quantitative test is designed to detect IgG antibodies directed against double stranded DNA in human serum. The presence of antibodies that recognize dsDNA is a highly specific marker for systemic lupus erythematosus. Please note that as of 05/26/2022 that this testing is performed by the Special Chemistry Laboratory at [facility]. This change in testing location is associated with a change is testing method and reference intervals. Please review the results of this test in association with the posted reference intervals. Blood 03/18/2023 2:14 PM EDT 03/19/2023 7:19 AM EDT Narrative Resulting Agency Comment Spec In Lab Kia Viramontes DO LAB SEND OUT ORDER JODIE Performing Organization Address [facility] Co de Phone Number [facility] [place] [address] * CK (03/18/2023 2:14 PM EDT) Pathologist [facility] Creatine Kinase 38 0 - 160 unit/L [facility] Blood 03/18/2023 2:14 PM EDT 03/18/2023 2:24 PM EDT Narrative Resulting Agency Comment Spec In Lab Kia D Wander DO CHEMISTRY ORDERABL ES Performing Organization Address [facility] Co de Phone Number [facility] [place] [address] * C4 Complement (03/18/2023 2:14 PM EDT) Complement C4 30 10 - 40 mg/dL [facility] Blood 03/18/2023 2:14 PM EDT 03/18/2023 2:24 PM EDT Narrative Resulting Agency Comment Spec In Lab Kia D Wander DO CHEMISTRY ORDERABL ES Performing Organization Address [facility] de Phone Number [facility] [place] [address] * C3 Complement (03/18/2023 2:14 PM EDT) Complement C3 142 90 - 180 mg/dL [facility] Blood 03/18/2023 2:14 PM EDT 03/18/2023 2:24 PM EDT Narrative Resulting Agency Comment Spec In Lab Kia D Wander DO CHEMISTRY ORDERABL ES Performing Organization Address [facility] de Phone Number [facility] [place] [address] * CRP, acute inflammation (03/18/2023 2:14 PM EDT) C-Reactive Protein 3.0 <=4.9 mg/L [facility] Blood 03/18/2023 2:14 PM EDT 03/18/2023 2:24 PM EDT Narrative Resulting Agency Comment Spec In Lab Kia D Wander DO CHEMISTRY ORDERABL ES Performing Organization Address [facility] de Phone Number [facility] [place] [address] * (ABNORMAL) Sedimentation rate (03/18/2023 2:14 PM EDT) Sedimentation Rate Automated 68(H) 2 - 39 mm/hr [facility] Comment: Effective July 12, 2019 new capillary photometric technology has resulted in a change in reference ranges. It is recommended that each ESR result be reviewed with its own age appropriate reference range. Blood 03/18/2023 2:14 PM EDT 03/18/2023 2:24 PM EDT Narrative Resulting Agency Comment Spec In Lab Kia Viramontes DO HEMATOLOGY ORDERAB LES [facility] [place] [address] documented in this encounter Visit Diagnoses Diagnosis Positive FRANCISCO (antinuclear antibody) Other and unspecified nonspecific immunological findings documented in this encounter Care Teams Lead Trainer Relationship Specialty Start Date End Date Magdalena Acosta MD [address] [place] [address] PCP - General Family Medicine 02/05/23 documented as of this encounter
--- OUTSIDE RECORDS SUMMARY | 2024-05-25 14:11 | XMS_ITS | Encounter Summary ---
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 documented in this encounter Plan of Treatment Upcoming Encounters Date Type Department Care Team (Late st Contact Info) Description 06/01/2024 10:00 AM EDT Office [place] [phone] Magdalena Peralta MD [facility] [place] [address] 06/05/2024 2:00 PM EST Hospital Encounter Outpatient [facility] [place] [phone] Markel Borjas MD [facility] [place] [address] 06/05/2024 2:00 PM EST - 06/05/2024 3:00 PM EST Surgery Outpatient [place] [address] Markel Borjas MD [facility] [address] [place] [address] (OSC MSURG) BONE MARROW BIOPSY AND ASPIRATION; DIAGNOSTIC (WRVU 1.44) 06/23/2024 2:00 PM EST Office Visit Hematology [place] [phone] Markel Borjas MD [facility] [place] [address] 03/01/2025 4:15 PM EDT Office Visit Dermatology at [place] [address] [place] [address] Marek Bonilla MD [address], [place] [address] Scheduled Procedures Name Priority Associated Diagnoses Date/Ti me (OSC MSURG) BONE MARROW BIOPSY AND ASPIRATION; DIAGNOSTIC (WRVU 1.44) Anemia, in pt with longstanding neutropenia 06/05/2024 2:00 PM EST documented as of this encounter Visit Diagnoses Not on filedocumented in this encounter Care Teams Hoop Maker Machine Relationship Specialty Start Date End Date Magdalena Acosta MD [address] [place] [address] PCP - General Family Medicine 02/05/23 documented as of this encounter
--- OUTSIDE RECORDS SUMMARY | 2024-05-25 14:12 | XMS_ITS | Encounter Summary ---
Author Organization [facility] Address [facility] [place] [address] Care Team Providers Care Greeting Card Maker Name Role Phone Deborah Quiroga APRN Primary Care Provider [phone] Encounter Details Date Type Department Care Team (Late st Contact Info) Description 02/06/2020 Orders Only Hematology [place] [address] Markel Borjas MD [facility] [place] [address] Neutropenia, unspecified type Social History Tobacco Use [...] 10:00 AM EDT Office [place] [address] Magdalena Peralta MD [facility] RHEUMATOLOGY DEPT [place], [place] [phone] 06/05/2024 2:00 PM EST Hospital Encounter [place] [address] Markel Borjas MD [facility] [place] [address] 06/05/2024 2:00 PM EST - 06/05/2024 3:00 PM EST Surgery [place] [address] Markel Borjas MD [facility] [place] [address] (OSC MSURG) BONE MARROW BIOPSY AND ASPIRATION; DIAGNOSTIC (WRVU 1.44) 06/23/2024 2:00 PM EST Office Visit Hematology [place] [phone] Markel Borjas MD [facility] [place] [address] 03/01/2025 4:15 PM EDT Office Visit Dermatology at [place] [address] [facility] [place] [address] Marek Bonilla MD [address], [place] [address] Scheduled Procedures Name Priority Associated Diagnoses Date/Ti me (OSC MSURG) BONE MARROW BIOPSY AND ASPIRATION; DIAGNOSTIC (WRVU 1.44) Anemia, in pt with longstanding neutropenia 06/05/2024 2:00 PM EST documented as of this encounter Visit Diagnoses Diagnosis Neutropenia, unspecified type documented in this encounter Care Teams Greeting Card Maker Relationship Specialty Start Date End Date Deborah Quiroga APRN PCP - General Family Medicine 03/24/16 02/04/23 documented as of this encounter
--- OUTSIDE RECORDS SUMMARY | 2024-05-25 14:12 | XMS_ITS | Encounter Summary ---
Author Organization [facility] Address [facility] [place] [address] Care Team Providers Care Sergeant Of Officers Name Role Phone Junaid Deborah Shields APRN Primary Care Provider [phone] Encounter Details Date Type Department Care Team (Latest Contact Info) Description 06/22/2022 10:00 AM EST Office [place] [phone] Raymond Loredo MD [facility] [place] [address] Raynaud's phenomenon without gangrene; Positive FRANCISCO (antinuclear [...] by Dr. Rogers here at [facility]. In addition to painful dysesthesias in her [...] radiocarpal or ulnocarpal joints. Hands: Normal manager ui and claw. SJC/TJC 0/0. Knees: Decreased flexion [...] 10:00 AM EDT Office [place] [phone] Magdalena Peralta MD [facility] [place] [address] 06/05/2024 2:00 PM EST Hospital Encounter [place]patient [place] [phone] Markel Borjas MD [facility] DR HEMATOLOGY [place] [address] 06/05/2024 2:00 PM EST - 06/05/2024 3:00 PM EST Surgery [place] [phone] Markel Borjas MD [facility] DR HEMATOLOGY [place] [address] (OSC MSURG) BONE MARROW BIOPSY AND ASPIRATION; DIAGNOSTIC (WRVU 1.44) 06/23/2024 2:00 PM EST Office Visit Hematology [place] [address] Markel Borjas MD [facility] DR HEMATOLOGY [place] [address] 03/01/2025 4:15 PM EDT Office Visit Dermatology at [address] [place] [address] Marek Bonilla MD [address], [place] [address] Scheduled Procedures Name Priority Associated Diagnoses Date/Ti [...] radiculopathy documented in this encounter Care Teams Sergeant Of Officers Relationship Specialty Start Date End Date Deborah Quiroga APRN PCP - General Family Medicine 03/24/16 02/04/23 documented as of this encounter
--- OUTSIDE RECORDS SUMMARY | 2024-05-25 14:12 | XMS_ITS | Encounter Summary ---
Author Organization [facility] Address [facility] Erika [place] [address] Care Team Providers Care Handkerchief Cutter Name Role Phone Deborah Quiroga APRN Primary Care Provider [phone] Reason for Visit * Consultation (Routine) - Closed Specialty Diagnoses / Procedures Referred By Contkrystle t Referred To Contact Rheumatology Diagnoses Positive FRANCISCO (antinuclear antibody) Arthralgia, unspecified joint Sandy Wu APRN [address] [place] [address] [facility] [address] [place] [address] Referral ID Status Reason Start Date Expiration Date V isits Requested Visits Authorized [id number] Closed Consult, Test & Treat PCP Updated and/or Approved 01/01/2022 01/01/2023 6 6 Encounter Details Date Type Department Care Team (Latest Contact Info) Description 01/20/2022 10:00 AM EDT Office [place] [address] Raymond Loredo MD [facility] [place] [place] [address] Rosacea; Raynaud's phenomenon without gangrene; [...] over radiocarpal or ulnocarpal joints. Hands: Normal hand fretted instrument maker and claw. SJC/TJC 0/0. Hips: Full motion, [...] can be done locally or here at [facility] that the current time is not particularly interested it seems Raymond Loredo MD documented in this encounter Plan of Treatment Upcoming Encounters Date Type Department Care Team (Late st Contact Info) Description 06/01/2024 10:00 AM EDT Office [place] [address] Magdalena Peralta MD [facility] [place] [address] 06/05/2024 2:00 PM EST Hospital Encounter Outpatient [place] [phone] Markel Borjas MD [facility] DR HEMATOLOGY [place] [address] 06/05/2024 2:00 PM EST - 06/05/2024 3:00 PM EST Surgery Outpatient [place] [phone] Markel Borjas MD [facility] DR HEMATOLOGY [place] [address] (OSC MSURG) BONE MARROW BIOPSY AND ASPIRATION; DIAGNOSTIC (WRVU 1.44) 06/23/2024 2:00 PM EST Office Visit [place]ematology [place] [address] Markel Borjas MD [facility] DR HEMATOLOGY [place] [address] 03/01/2025 4:15 PM EDT Office Visit Dermatology at [place] [address] [place] [address] Marek Bonilla MD [address], [place] [address] Scheduled Procedures Name Priority Associated Diagnoses Date/Ti [...] syndrome documented in this encounter Care Teams Handkerchief Cutter Relationship Specialty Start Date End Date Deborah Quiroga APRN PCP - General Family Medicine 03/24/16 02/04/23 documented as of this encounter
--- OUTSIDE RECORDS SUMMARY | 2024-05-25 14:12 | XMS_ITS | Encounter Summary ---
Author [facility] [place] [address] Care Team Providers Care Warehouse Shipping Receiving Clerk Name Role Phone Deborah Quiroga APRN Primary Care Provider [phone] Encounter Details Date Type Department Care Team (Late st Contact Info) Description 06/05/2021 Interpretation Only [address] [place] [address] [phone] Deborah Quiroga APRN [address] [phone] Social History Tobacco Use Types Packs/Day Years [...] 10:00 AM EDT Office [place] [phone] Magdalena Peralta MD [facility] [place] [address] 06/05/2024 2:00 PM EST Hospital Encounter Outpatient [place] [phone] Markel Borjas MD [facility] [place] [address] 06/05/2024 2:00 PM EST - 06/05/2024 3:00 PM EST Surgery Outpatient [place] [address] Markel Borjas MD [facility] [address] [place] [address] (OSC MSURG) BONE MARROW BIOPSY AND ASPIRATION; DIAGNOSTIC (WRVU 1.44) 06/23/2024 2:00 PM EST Office Visit Hematology [place] [phone] Markel Borjas MD [facility] DR [place] [address] 03/01/2025 4:15 PM EDT Office Visit Dermatology at [place] [address] [place] [address] Marek Bonilla MD [address], [place] [address] Scheduled Procedures Name Priority Associated Diagnoses Date/Ti [...] RAD ADMITDTTM DH RAD PT RAD INFO [id number]^EV ERETT^DEBORAH^E RAD EXAM DESC MADDSC^SCREEN MAMMO BL [...] Electronically signed by: Rocael Villatoro MD, [facility] ([phone]), at 06/05/2021 1:27 PM Narrative 06/05/2021 1:27 [...] attendant that requested your imaging first. Deborah LLAMAS MAMMO ORDERABLE S documented in this encounter Visit Diagnoses Not on filedocumented in this encounter Care Teams Warehouse Shipping Receiving Clerk Relationship Specialty Start Date End Date Deborah Quiroga APRN PCP - General Family Medicine 03/24/16 02/04/23 documented as of this encounter
--- OUTSIDE RECORDS SUMMARY | 2024-05-25 14:12 | XMS_ITS | Encounter Summary ---
Author Organization [facility] [place] [address] Care Team Providers Care Buckle Assembler Name Role Phone Deborah Quiroga APRN Primary Care Provider [phone] Encounter Details Date Type Department Care Team (Late st Contact Info) Description 06/17/2022 Ancillary Procedure Radiology Library at [facility] [place] [phone] Deborah Quiroga APRN [address] [place] [phone] Social History Tobacco Use Types Packs/Day [...] 10:00 AM EDT Office [place] [phone] Magdalena Peralta MD [facility] [place] [address] 06/05/2024 2:00 PM EST Hospital Encounter Outpatient [place] [phone] Markel Borjas MD [facility] HEMATOLOGY [place] [address] 06/05/2024 2:00 PM EST - 06/05/2024 3:00 PM EST Surgery Outpatient [place] [address] Markel Borjas MD [facility] DR HEMATOLOGY [place] [address] (OSC MSURG) BONE MARROW BIOPSY AND ASPIRATION; DIAGNOSTIC (WRVU 1.44) 06/23/2024 2:00 PM EST Office Visit Hematology [place] [phone] Markel Borjas MD [facility] DR HEMATOLOGY [place] [address] 03/01/2025 4:15 PM EDT Office Visit Dermatology at [place] [address] [place] [phone] Marek Bonilla MD [address], [place] [address] Scheduled Procedures Name Priority Associated Diagnoses Date/Ti [...] MR Spine (06/17/2022 12:00 AM EST) Narrative [facility] - 06/18/2022 11:00 AM EST This exam is auto-finalizing. It's purpose is for storage only. Deborah Quiroga APRN IMG FILM LIBRARY OR DERABLES [place], [place] documented in this encounter Visit Diagnoses Not on filedocumented in this encounter Care Teams Buckle Assembler Relationship Specialty Start Date End Date Deborah Quiroga APRN PCP - General Family Medicine 03/24/16 02/04/23 documented as of this encounter
--- OUTSIDE RECORDS SUMMARY | 2024-05-25 14:12 | XMS_ITS | Encounter Summary ---
Author Organization [facility] Address [facility] [place] [address] Care Team Providers Care Chemical Engraver Name Role Phone Junaid Deborah Shields APRN Primary Care Provider [phone] Reason for Visit * Reason Comments Schedule Office Case Pain right leg Encounter Details Date Type Department Care Team (Late st Contact Info) Description 12/11/2016 9:00 AM EDT Office Visit Hematology [place] [address] Markel Borjas MD [facility] [address] [place] [address] Neutropenia, unspecified type Social History Tobacco Use [...] AM EDT Hematology Outpatient Clinic [facility] [...] TOUCH PREP, CLOT SECTION, CORE ??BIOPSY); [OSR# [id number], COLLECTED 06/23/2016, 19 SLIDES]: ?1. 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 Extremities: No edema. Labs: Hgb= 13 Bsql=848 ANC= 0.5 Imaging As above - reviewed [...] 10:00 AM EDT Office [place] [address] Magdalena Peralta MD [facility] [place] [address] 06/05/2024 2:00 PM EST Hospital Encounter [place] [address] Markel Borjas MD [facility] [address] [place] [address] 06/05/2024 2:00 PM EST - 06/05/2024 3:00 PM EST Surgery [place] [address] Markel Borjas MD [facility] [address] [place] [address] (OSC MSURG) BONE MARROW BIOPSY AND ASPIRATION; DIAGNOSTIC (WRVU 1.44) 06/23/2024 2:00 PM EST Office Visit Hematology [place] [address] Markel Borjas MD [facility] [address] [place] [address] 03/01/2025 4:15 PM EDT Office Visit Dermatology at [address] [place] [address] Marek Bonilla MD [address], [address] Murphy DERMATOLOGY [place], [place] [address] Scheduled Procedures Name Priority Associated Diagnoses Date/Ti [...] type documented in this encounter Care Teams Chemical Engraver Relationship Specialty Start Date End Date Deborah Quiroga APRN PCP - General Family Medicine 03/24/16 02/04/23 documented as of this encounter
--- OUTSIDE RECORDS SUMMARY | 2024-05-25 14:12 | XMS_ITS | Encounter Summary ---
[place] [address] Care Team Providers Care Medical Assistant Internal Medicine Name Role Phone Ashley Quirogan Cornelius ANURAG Primary Care Provider [phone] Reason for Visit * Reason Onset Date Comments Medical Care Coordination 07/27/2017 Encounter Details Date Type Department Care Team (Late st Contact Info) Description 07/27/2017 Telephone Hematology [place] [address] Alexandrea Greenwood RN Medical Care Coordination Social [...] 07/27/2017 12:25 PM EST Message received from attendance secretary: Injection/Infusion Referral Call placed to [facility] @ [phone] Spoke w/ CADASTRAL ENGINEER Services to be provided for pt are: CBC/CMP DONE Q6 MONTHS X2 STARTING NOVEMBER 2017 TECH confirmed they would provide services to pt - I CALLED PT, LM. Pt orders faxed to [phone] documented in this encounter Plan of Treatment Upcoming Encounters Date Type Department Care Team (Late st Contact Info) Description 06/01/2024 10:00 AM EDT Office Visit Rheumatology at [place] [phone] Magdalena Peralta MD [facility] [place] [address] 06/05/2024 2:00 PM EST Hospital Encounter Outpatient Surgery Center [place] [phone] Markel Borjas MD [facility] [address] HEMATOLOG[place] [address] 06/05/2024 2:00 PM EST - 06/05/2024 3:00 PM EST Surgery Outpatient [facility] [place] [phone] Markel Borjas MD [facility] DR HEMATOLOG[place] [address] (OSC MSURG) BONE MARROW BIOPSY AND ASPIRATION; DIAGNOSTIC (WRVU 1.44) 06/23/2024 2:00 PM EST Office Visit Hematology and Oncology at [place] [phone] Markel Borjas MD [facility] [address] [place] [address] 03/01/2025 4:15 PM EDT Office Visit Dermatology at [place] [address] [place] [address] Marek Bonilla MD [address], [place] [address] Scheduled Procedures Name Priority Associated Diagnoses Date/Ti me (OSC MSURG) BONE MARROW BIOPSY AND ASPIRATION; DIAGNOSTIC (WRVU 1.44) Anemia, in pt with longstanding neutropenia 06/05/2024 2:00 PM EST documented as of this encounter Visit Diagnoses Not on filedocumented in this encounter Care Teams Medical Assistant Internal Medicine Relationship Specialty Start Date End Date Deborah Quiroga APRN PCP - General Family Medicine 03/24/16 02/04/23 documented as of this encounter
--- OUTSIDE RECORDS SUMMARY | 2024-05-25 14:12 | XMS_ITS | Encounter Summary ---
[place] [address] Care Team Providers Care Hotel Front Office Manager Name Role Phone Deborah Quiroga ANURAG Primary Care Provider [phone] Encounter Details Date Type Department Care Team (Late st Contact Info) Description 02/07/2020 Telephone Hematology [place] [address] Ellen Rios RN Social History [...] 02/07/2020 12:59 PM EDT Message received from associate professor of education: Injection/Infusion Referral Services to be provided for pt are: CBC only at [facility]- Pt will go by 02/27 Orders faxed to [phone]). Spoke with pt. She will call [facility] directly to schedule a time that works for her. documented in this encounter Plan of Treatment Upcoming Encounters Date Type Department Care Team (Late Contact Info) Description 06/01/2024 10:00 AM EDT Office [place] [address] Magdalena Peralta MD [facility] [place] [address] 06/05/2024 2:00 PM EST Hospital Encounter Outpatient Surgery Center [place] [phone] Markel Borjas MD [facility] [place] [address] 06/05/2024 2:00 PM EST - 06/05/2024 3:00 PM EST Surgery Outpatient [facility] [place] [phone] Markel Borjas MD [facility] [place] [address] (OSC MSURG) BONE MARROW BIOPSY AND ASPIRATION; DIAGNOSTIC (WRVU 1.44) 06/23/2024 2:00 PM EST Office Visit Hematology and Oncology at [place] [phone] Markel Borjas MD [facility] [place] [address] 03/01/2025 4:15 PM EDT Office Visit Dermatology at [place] [address] [place] [address] Marek Bonilla MD [address], [place] [address] Scheduled Procedures Name Priority Associated Diagnoses Date/Ti me (OSC MSURG) BONE MARROW BIOPSY AND ASPIRATION; DIAGNOSTIC (WRVU 1.44) Anemia, in pt with longstanding neutropenia 06/05/2024 2:00 PM EST documented as of this encounter Visit Diagnoses Not on filedocumented in this encounter Care Teams Hotel Front Office Manager Relationship Specialty Start Date End Date Deborah Quiroga, CALL CENTER RECEPTIONIST PCP - General Family Medicine 03/24/16 02/04/23 documented as of this encounter
--- OUTSIDE RECORDS SUMMARY | 2024-05-25 14:12 | XMS_ITS | Encounter Summary ---
Author Organization [facility] Address [facility] [place] [address] Care Team Providers Care Interventional Technologist Name Role Phone Deborah Quiroga APRN Primary Care Provider [phone] Encounter Details Date Type Department Care Team (Late st Contact Info) Description 06/18/2017 11:00 AM EST Office Visit Hematology [place] [address] Markel Borjas MD [facility] DR HEMATOLOGY [place] [address] Neutropenia, unspecified type Social History Tobacco Use [...] AM EST Hematology Outpatient Clinic [facility] Hematology Outpatient Consult Note CC: 60 year [...] TOUCH PREP, CLOT SECTION, CORE ??BIOPSY); [OSR# [id number], COLLECTED 06/23/2016, 19 SLIDES]: ?1. ??Normocellular marrow [...] a clonal lymphoproliferative or myeloproliferative disorder (OSR# [id number]) Chromosome analysis on the marrow aspirate revealed [...] working the same job and participating in [employer]. Past Medical/Surgical History: 1. Leukopenia -element of neutropenia, as noted above 2. Aortic Stenosis -severe -AVR surgery 3. Hypercholesterolemia 4. Depression 5. Hypertension 6. 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 Extremities: No edema. Labs: Hgb= 13 Gnmz=263 ANC= 0.6 Imaging As above - reviewed [...] EDT Office Visit Rheumatology at [place] [phone] Magdalena Peralta MD [facility] [place] [address] 06/05/2024 2:00 PM EST Hospital Encounter Outpatient [place] [address] Markel Borjas MD [facility] DR HEMATOLOGY [place] [address] 06/05/2024 2:00 PM EST - 06/05/2024 3:00 PM EST Surgery Outpatient [place] [address]-1000 Markel Borjas MD [facility] DR HEMATOLOGY [place] [address] (OSC MSURG) BONE MARROW BIOPSY AND ASPIRATION; DIAGNOSTIC (WRVU 1.44) 06/23/2024 2:00 PM EST Office Visit Hematology [place] [address] Markel Borjas MD [facility] DR HEMATOLOGY [place] [address] 03/01/2025 4:15 PM EDT Office Visit Dermatology at [address] [phone] Marek Bonilla MD [address], [place] [address] Scheduled Procedures Name Priority Associated Diagnoses Date/Ti me (OSC MSURG) BONE MARROW BIOPSY AND ASPIRATION; DIAGNOSTIC (WRVU 1.44) Anemia, in pt with longstanding neutropenia 06/05/2024 2:00 PM EST documented as of this encounter Visit Diagnoses Diagnosis Neutropenia, unspecified type documented in this encounter Care Teams Interventional Technologist Relationship Specialty Start Date End Date Deborah Quiroga, ORACLE FUSION MIDDLEWARE DEVELOPER PCP - General Family Medicine 03/24/16 02/04/23 documented as of this encounter
--- OUTSIDE RECORDS SUMMARY | 2024-05-25 14:12 | XMS_ITS | Encounter Summary ---
Author Organization [facility] [place] [address] Care Team Providers Care Welt Edge Rounder Name Role Phone Deborah Quiroga Sylvia OSBORN Primary Care Provider [phone] Encounter Details Date Type Department Care Team (Late st Contact Info) Description 11/11/2020 Refill Dermatology at [address] [address] Taylor Malone, PIPING DRAFTER Social History Tobacco Use Types Packs/Day Years [...] 10:00 AM EDT Office [place] [phone] Magdalena Peralta MD [facility] [address] 06/05/2024 2:00 PM EST Hospital Encounter [place]patient [place] [address]-1000 Markel Borjas MD [facility] [address] [place] [address] 06/05/2024 2:00 PM EST - 06/05/2024 3:00 PM EST Surgery [place] [address] Markel Borjas MD [facility] [address] [place] [address] (OSC MSURG) BONE MARROW BIOPSY AND ASPIRATION; DIAGNOSTIC (WRVU 1.44) 06/23/2024 2:00 PM EST Office Visit Hematology [place] [address] Markel Borjas MD [facility] [address] [place] [address] 03/01/2025 4:15 PM EDT Office Visit Dermatology at [place] [address] [place] [address] Marek Bonilla MD [address], [place] [address] Scheduled Procedures Name Priority Associated Diagnoses Date/Ti me (OSC MSURG) BONE MARROW BIOPSY AND ASPIRATION; DIAGNOSTIC (WRVU 1.44) Anemia, in pt with longstanding neutropenia 06/05/2024 2:00 PM EST documented as of this encounter Visit Diagnoses Not on filedocumented in this encounter Care Teams Welt Edge Rounder Relationship Specialty Start Date End Date Deborah Quiroga APRN PCP - General Family Medicine 03/24/16 02/04/23 documented as of this encounter
--- OUTSIDE RECORDS SUMMARY | 2024-05-25 14:12 | XMS_ITS | Encounter Summary ---
[place] [address] Care Team Providers Care Radiologic Technology Instructor Name Role Phone Deborah Quiroga APRN Primary Care Provider [phone] Reason for Referral * Consultation (Routine) - Closed Specialty Diagnoses / Procedures Referred By Contac t Referred To Contact Rheumatology Diagnoses Positive FRANCISCO (antinuclear antibody) Arthralgia, unspecified joint Sandy Wu APRN [address] [place] [address] [facility] [address] [place] [phone] Referral ID Status Reason Start Date Expiration Date V isits Requested Visits Authorized [id number] Closed Consult, Test & Treat PCP Updated and/or Approved 01/01/2022 01/01/2023 6 6 Encounter Details Date Type Department Care Team (Latest Contact Info) Description 01/01/2022 Transcribe Orders eDH Incoming Referrals [phone] Sandy Wu APRN [address] [place], [place] [id number] Positive FRANCISCO (antinuclear antibody); Arthralgia, unspecified joint [...] 10:00 AM EDT Office Visit [place] [phone] Magdalena Peralta MD [facility] [place] [address] 06/05/2024 2:00 PM EST Hospital Encounter Outpatient Surgery Center [place] [phone] Markel Borjas MD [facility] [place] [address] 06/05/2024 2:00 PM EST - 06/05/2024 3:00 PM EST Surgery [place] [address] Markel Borjas MD [facility] [place] [address] (OSC MSURG) BONE MARROW BIOPSY AND ASPIRATION; DIAGNOSTIC (WRVU 1.44) 06/23/2024 2:00 PM EST Office Visit Hematology [place] [address] Markel Borjas MD [facility] [place] [address] 03/01/2025 4:15 PM EDT Office Visit Dermatology at [place] [address] [address] Marek Bonilla MD [address], [address] [address] DERMATOLOGY [place], [place] [address] Scheduled Procedures Name Priority Associated Diagnoses Date/Ti [...] joint documented in this encounter Care Teams Radiologic Technology Instructor Relationship Specialty Start Date End Date Deborah Quiroga APRN PCP - General Family Medicine 03/24/16 02/04/23 documented as of this encounter
--- OUTSIDE RECORDS SUMMARY | 2024-05-25 14:12 | XMS_ITS | Encounter Summary ---
Author Organization [facility] Address [facility] Erika [facility] [place] [address] Care Team Providers Care Screen Vent Binder Name Role Phone Deborah Quiroga ANURAG Primary Care Provider [phone] Encounter Details Date Type Department Care Team (Late st Contact Info) Description 07/21/2017 Orders Only Hematology and Oncology at [place] [phone] Alexandrea Greenwood RN Other neutropenia Social History [...] 10:00 AM EDT Office Visit Rheumatology at [place] [phone] Magdalena Peralta MD [facility] [place] [address] 06/05/2024 2:00 PM EST Hospital Encounter [place]patient [place] [address] Markel Borjas MD [facility] DR [place] [address] 06/05/2024 2:00 PM EST - 06/05/2024 3:00 PM EST Surgery [place]patient [place] [address] Markel Borjas MD [facility] DR [place] [address] (OSC MSURG) BONE MARROW BIOPSY AND ASPIRATION; DIAGNOSTIC (WRVU 1.44) 06/23/2024 2:00 PM EST Office Visit [place]ematology [place] [address] Markel Borjas MD [facility] DR [place] [address] 03/01/2025 4:15 PM EDT Office Visit Dermatology at [place] [address] [place] [address] Marek Bonilla MD [address], [place] [address] Scheduled Procedures Name Priority Associated Diagnoses Date/Ti me (OSC MSURG) BONE MARROW BIOPSY AND ASPIRATION; DIAGNOSTIC (WRVU 1.44) Anemia, in pt with longstanding neutropenia 06/05/2024 2:00 PM EST documented as of this encounter Visit Diagnoses Diagnosis Other neutropenia documented in this encounter Care Teams Screen Vent Binder Relationship Specialty Start Date End Date Deborah Quiroga APRN PCP - General Family Medicine 03/24/16 02/04/23 documented as of this encounter
--- OUTSIDE RECORDS SUMMARY | 2024-05-25 14:12 | XMS_ITS | Encounter Summary ---
[place] [address] Care Team Providers Care Rn Perinatal Name Role Phone JunaidDeborah APRN Primary Care Provider [phone] Reason for Visit * Reason Comments Follow-up Encounter Details Date Type Department Care Team (Late st Contact Info) Description 01/10/2021 4:30 PM EDT Office Visit Dermatology at [place] [address] [place] [address] Marek Bonilla MD [address], [address] DERMATOLOGY [place], [place] [phone] Rosacea Social History Tobacco Use Types Packs/Day [...] cutaneous and ocular 2. Previously told by dock operator that she had corneal tears from [...] 3 refills. Will call this in her [facility] pharmacy in [place] 3. Continue metronidazole 0.75% gel applying once daily after washing in the mornings. She was given already 45 g with 5 refills which will last her until next year likely does not need a refill today. 4. Return to clinic in 1 year for repeat check. CC: Deborah Qurioga APRN documented in this encounter Plan of Treatment Upcoming Encounters Date Type Department Care Team (Late st Contact Info) Description 06/01/2024 10:00 AM EDT Office [place] [address] Magdalena Peralta MD [facility] [place] [address] 06/05/2024 2:00 PM EST Hospital Encounter [place]patient [place] [address] Markel Borjas MD [facility] [place] [address] 06/05/2024 2:00 PM EST - 06/05/2024 3:00 PM EST Surgery [place] [address] Markel Borjas MD [facility] [address] [place] [address] (OSC MSURG) BONE MARROW BIOPSY AND ASPIRATION; DIAGNOSTIC (WRVU 1.44) 06/23/2024 2:00 PM EST Office Visit Hematology [place] [address] Markel Borjas MD [facility] DR [place] [address] 03/01/2025 4:15 PM EDT Office Visit Dermatology at [place] [address] [place] [address] Marek Bonilla MD [address], [place] [address] Scheduled Procedures Name Priority Associated Diagnoses Date/Ti me (OSC MSURG) BONE MARROW BIOPSY AND ASPIRATION; DIAGNOSTIC (WRVU 1.44) Anemia, in pt with longstanding neutropenia 06/05/2024 2:00 PM EST documented as of this encounter Visit Diagnoses Diagnosis Rosacea documented in this encounter Care Teams Rn Perinatal Relationship Specialty Start Date End Date Deborah Quiroga APRN PCP - General Family Medicine 03/24/16 02/04/23 documented as of this encounter
--- OUTSIDE RECORDS SUMMARY | 2024-05-25 14:12 | XMS_ITS | Encounter Summary ---
[place] [address] Care Team Providers Care Warpman Name Role Phone Ashley Quirogazac Shields APRN Primary Care Provider [phone] Reason for Visit * Reason Comments Annual Exam Encounter Details Date Type Department Care Team (Late st Contact Info) Description 01/09/2022 3:15 PM EDT Office Visit Dermatology at [address] [address] Marek Bonilla MD [address] [facility] [address], [address] DERMATOLOGY [place], [place] [phone] Rosacea Social History Tobacco Use Types Packs/Day [...] cutaneous and ocular 2. Previously told by spiral tube winder helper that she had corneal tears from her [...] refills. We will call this into her [facility] pharmacy in [place] 3. Continue metronidazole 0.75% gel applying every other day after washing as needed. We will give her 45 g with 5 refills. 4. Return to clinic in a year for repeat check CC: Deborah Quiroga APRN documented in this encounter Plan of Treatment Upcoming Encounters Date Type Department Care Team (Late st Contact Info) Description 06/01/2024 10:00 AM EDT Office Visit [place] [address] Magdalena Peralta MD [facility] [place] [address] 06/05/2024 2:00 PM EST Hospital Encounter Outpatient [place] [address] Markel Borjas MD [facility] DR HEMATOLOGY [place] [address] 06/05/2024 2:00 PM EST - 06/05/2024 3:00 PM EST Surgery Outpatient [place] [address] Markel Borjas MD [facility] DR HEMATOLOGY [place] [address] (OSC MSURG) BONE MARROW BIOPSY AND ASPIRATION; DIAGNOSTIC (WRVU 1.44) 06/23/2024 2:00 PM EST Office Visit Hematology [place] [address] Markel Borjas MD [facility] DR HEMATOLOGY [place] [address] 03/01/2025 4:15 PM EDT Office Visit Dermatology at [place] [address] [place] [address] Marek Bonilla MD [address] [place] [address] Scheduled Procedures Name Priority Associated Diagnoses Date/Ti me (OSC MSURG) BONE MARROW BIOPSY AND ASPIRATION; DIAGNOSTIC (WRVU 1.44) Anemia, in pt with longstanding neutropenia 06/05/2024 2:00 PM EST documented as of this encounter Visit Diagnoses Diagnosis Rosacea documented in this encounter Care Teams Warpman Relationship Specialty Start Date End Date Deborah Quiroga APRN PCP - General Family Medicine 03/24/16 02/04/23 documented as of this encounter
--- OUTSIDE RECORDS SUMMARY | 2024-05-25 14:12 | XMS_ITS | Encounter Summary ---
Author Organization [facility] Address [facility] [place] [address] Care Team Providers Care Psychology Associate Name Role Phone Deborah Quiroga APRN Primary Care Provider [phone] Encounter Details Date Type Department Care Team (Late st Contact Info) Description 03/01/2020 11:30 AM EDT Office Visit [place] [phone] Patrick Borjas MD [facility] [place] [address] Neutropenia, unspecified type Social History Tobacco Use [...] 03/01/2020 11:30 AM EDT [facility] [...] TOUCH PREP, CLOT SECTION, CORE ??BIOPSY); [OSR# [id number], COLLECTED 06/23/2016, 19 SLIDES]: ?1. 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 Extremities: No edema. Labs: Hgb= 12.4 Xnpb=589 ANC= 2.5 Imaging As above - reviewed [...] 10:00 AM EDT [place] [address] Magdalena Peralta MD [facility] [place] [address] 06/05/2024 2:00 PM EST Hospital Encounter [place] [address] Patrick Borjas MD [facility] [place] [address] 06/05/2024 2:00 PM EST - 06/05/2024 3:00 PM EST Surgery [place]patient [place] [address] Patrick Borjas MD [facility] [place] [address] (OSC MSURG) BONE MARROW BIOPSY AND ASPIRATION; DIAGNOSTIC (WRVU 1.44) 06/23/2024 2:00 PM EST Office Visit [place] [address] Patrick Borjas MD [facility] [place] [address] 03/01/2025 4:15 PM EDT Office Visit Dermatology at [place] [address] [place] [address] Marek Bonilla MD [address], [place] [address] Scheduled Procedures Name Priority Associated Diagnoses Date/Ti me (OSC MSURG) BONE MARROW BIOPSY AND ASPIRATION; DIAGNOSTIC (WRVU 1.44) Anemia, in pt with longstanding neutropenia 06/05/2024 2:00 PM EST documented as of this encounter Visit Diagnoses Diagnosis Neutropenia, unspecified type documented in this encounter Care Teams Psychology Associate Relationship Specialty Start Date End Date Deborah Quiroga APRN PCP - General Family Medicine 03/24/16 02/04/23 documented as of this encounter
--- OUTSIDE RECORDS SUMMARY | 2024-05-25 14:12 | XMS_ITS | Encounter Summary ---
Author Organization [facility] Address [facility] [place] [address] Care Team Providers Care Scaffold Worker Name Role Phone Junaid, Deborah Shields APRN Primary Care Provider [phone] Encounter Details Date Type Department Care Team (Late st Contact Info) Description 03/04/2020 External Results Hematology and Oncology at [place] [phone] [place] Social History Tobacco Use Types [...] 10:00 AM EDT Office Visit Rheumatology at [place] [phone] Magdalena Peralta MD [facility] [place] [address] 06/05/2024 2:00 PM EST Hospital Encounter Outpatient [place] [phone] Markel Borjas MD [facility] DR HEMATOLOGY [place] [address] 06/05/2024 2:00 PM EST - 06/05/2024 3:00 PM EST Surgery Outpatient [place] [address] Markel Borjas MD [facility] DR HEMATOLOGY [place] [address] (OSC MSURG) BONE MARROW BIOPSY AND ASPIRATION; DIAGNOSTIC (WRVU 1.44) 06/23/2024 2:00 PM EST Office Visit Hematology [place] [address] Markel Borjas MD [facility] DR HEMATOLOGY [place] [address] 03/01/2025 4:15 PM EDT Office Visit Dermatology at [place] [address] [place] [address] Marek Bonilla MD [address], [place] [address] Scheduled Procedures Name Priority Associated Diagnoses Date/Ti [...] on filedocumented in this encounter Care Teams Scaffold Worker Relationship Specialty Start Date End Date Deborah Quiroga, INTERPRETER PCP - General Family Medicine 03/24/16 02/04/23 documented as of this encounter
--- OUTSIDE RECORDS SUMMARY | 2024-05-25 14:12 | XMS_ITS | Encounter Summary ---
Author Organization [facility] [place] [address] Care Team Providers Care Ginseng Farmer Name Role Phone Deborah Quiroga APRN Primary Care Provider [phone] Encounter Details Date Type Department Care Team (Late st Contact Info) Description 06/05/2021 Interpretation Only [address] [address] Deborah Quiroga APRN [address] [phone] Social History Tobacco Use Types Packs/Day Years [...] 10:00 AM EDT Office [place] [phone] Magdalena Peralta MD [facility] [place] [address] 06/05/2024 2:00 PM EST Hospital Encounter Outpatient [place] [phone] Markel Borjas MD [facility] [place] [address] 06/05/2024 2:00 PM EST - 06/05/2024 3:00 PM EST Surgery Outpatient [place] [address] Markel Borjas MD [facility] [address] [place] [address] (OSC MSURG) BONE MARROW BIOPSY AND ASPIRATION; DIAGNOSTIC (WRVU 1.44) 06/23/2024 2:00 PM EST Office Visit Hematology [place] [address] Markel Borjas MD [facility] [place] [address] 03/01/2025 4:15 PM EDT Office Visit Dermatology at [place] [address] [place] [address] Marek Bonilla MD [address], [place] [address] Scheduled Procedures Name Priority Associated Diagnoses Date/Ti [...] RAD ADMITDTTM RAD PT SYLVIA CULP INFO [id number]^E VERETT^DEBORAH ^E RAD EXAM DESC XDXAC^DEXA SCAN AXIAL^RIS RAD Anatomical Region Laterality Modality C-spine, Hip N/A Radiographic Enuice ging Impressions 06/05/2021 12:00 PM EDT Normal. FRAX ten-year fracture risk: Major osteoporotic fracture: 6.3%. Hip fracture: 0.3%. Thank you for letting us participate in the care of this patient. ??If you are a health care provider and have any questions regarding this report, please contact the number below. ??For patients who have questions please contact the health healthcare recruiter that requested your imaging first. ? Electronically signed by: Rocael Villatoro MD, [facility] ([phone]), at 06/05/2021 12:00 PM Narrative 06/05/2021 12:00 PM EDT EXAMINATION: DEXA SCAN AXIAL CLINICAL HISTORY: Screening for osteoporosis postmenopausal. TECHNIQUE: Scans were acquired at the lumbar spine, left hip. COMPARISON: None. FINDINGS: Lowest T score at a diagnostic region of interest: T score: -0.6, ALYSA:Femoral neck, WHO diagnosis: Normal Procedure Note oRcael Villatoro MD - 06/05/2021 EXAMINATION: DEXA SCAN [...] who have questions please contactthe health healthcare recruiter that requested your imaging first. Electronically signed by: Rocael Villatoro MD, [facility]([phone]), at 06/05/2021 12:00 PM Deborah Quiroga APRN IMGerman DEXA ORDERABLES documented in this encounter Visit Diagnoses Not on filedocumented in this encounter Care Teams Ginseng Farmer Relationship Specialty Start Date End Date Deborah Quiroga APRN PCP - General Family Medicine 03/24/16 02/04/23 documented as of this encounter
--- OUTSIDE RECORDS SUMMARY | 2024-05-25 14:12 | XMS_ITS | Encounter Summary ---
Author Organization [facility] [place] [address] Care Team Providers Care Overlock Sleeve Setter Name Role Phone Deborah Quiroga Sylvia OSBORN Primary Care Provider [phone] Encounter Details Date Type Department Care Team (Late st Contact Info) Description 01/13/2021 Refill Dermatology at [address] [address] Taylor Malone, TELEVISION PRODUCTION TECHNICIAN Social History Tobacco Use Types Packs/Day [...] 10:00 AM EDT Office [place] [address] Magdalena Peralta MD [facility] [place] [address] 06/05/2024 2:00 PM EST Hospital Encounter Outpatient [place] [address] Markel Borjas MD [facility] [place] [address] 06/05/2024 2:00 PM EST - 06/05/2024 3:00 PM EST Surgery Outpatient [place] [address] Markel oBrjas MD [facility] [place] [address] (OSC MSURG) BONE MARROW BIOPSY AND ASPIRATION; DIAGNOSTIC (WRVU 1.44) 06/23/2024 2:00 PM EST Office Visit Hematology [place] [address] Markel Borjas MD [facility] [place] [address] 03/01/2025 4:15 PM EDT Office Visit Dermatology at [place] [address] [place] [phone] Marek Bonilla MD [address], [place] [address] Scheduled Procedures Name Priority Associated Diagnoses Date/Ti me (OSC MSURG) BONE MARROW BIOPSY AND ASPIRATION; DIAGNOSTIC (WRVU 1.44) Anemia, in pt with longstanding neutropenia 06/05/2024 2:00 PM EST documented as of this encounter Visit Diagnoses Not on filedocumented in this encounter Care Teams Overlock Sleeve Setter Relationship Specialty Start Date End Date Deborah Quiroga APRN PCP - General Family Medicine 03/24/16 02/04/23 documented as of this encounter
--- OUTSIDE RECORDS SUMMARY | 2024-05-25 14:12 | XMS_ITS | Encounter Summary ---
Author Organization [facility] Address [facility] [place] [address] Care Team Providers Care Practical Ministries Professor Name Role Phone Deborah Quiroga APRN Primary Care Provider [phone] Encounter Details Date Type Department Care Team (Latest Contact Info) Description 10/14/2016 - 10/14/2016 11:59 PM EDT Hospital Encounter Radiology Library at [facility] [place] [address] Alirio Esparza MD Pain Discharge Disposition: Home [...] 10:00 AM EDT Office [place] [address] Magdalena Peralta MD [facility] [place] [address] 06/05/2024 2:00 PM EST Hospital Encounter [place] [address] Markel Borjas MD [facility] DR [place] [address] 06/05/2024 2:00 PM EST - 06/05/2024 3:00 PM EST Surgery [place] [address] Markel Borjas MD [facility] DR [place] [address] (OSC MSURG) BONE MARROW BIOPSY AND ASPIRATION; DIAGNOSTIC (WRVU 1.44) 06/23/2024 2:00 PM EST Office Visit [place]ematology [place] [address] Markel Borjas MD [facility] DR [place] [address] 03/01/2025 4:15 PM EDT Office Visit Dermatology at [place] [address] [place] [address] Marek Bonilla MD [address], [address] DERMATOLOGY [place], [place] [address] Scheduled Procedures Name Priority Associated Diagnoses Date/Ti [...] Chest (10/14/2016 12:00 AM EDT) Narrative [facility] - 10/14/2016 5:16 PM EDT This exam is for storage only and is auto-finalizing. Alirio Esparza MD IMG FILM LIBRARY OR DERABLES [place], [place] documented in this encounter Visit Diagnoses Diagnosis Pain Generalized pain documented in this encounter Care Teams Practical Ministries Professor Relationship Specialty Start Date End Date Deborah Quiroga APRN PCP - General Family Medicine 03/24/16 02/04/23 documented as of this encounter
--- OUTSIDE RECORDS SUMMARY | 2024-05-25 14:12 | XMS_ITS | Encounter Summary ---
[place] [address] Care Team Providers Care Pharmaceutical Assistant Name Role Phone Ashley Quirogan Cornelius ANURAG Primary Care Provider [phone] Reason for Visit * Reason Comments Skin Check Encounter Details Date Type Department Care Team (Late st Contact Info) Description 11/11/2020 10:45 AM EDT Office Visit Dermatology at [address] [place] [address] Marek Bonilla MD [address] [facility], [address] DERMATOLOGY [place], [place] [phone] Rosacea; Acrochordon Social History Tobacco Use Types [...] Discussed the possibility of getting this through [facility] or from the [facility] pharmacy if necessary. She has not yet [...] 10:00 AM EDT [place] [address] Magdalena Peralta MD [facility] [place] [address] 06/05/2024 2:00 PM EST Hospital Encounter Outpatient [place] [address] Markel Borjas MD [facility] DR [place] [address] 06/05/2024 2:00 PM EST - 06/05/2024 3:00 PM EST Surgery Outpatient [place] [address] Markel Borjas MD [facility] DR [place] [address] (OSC MSURG) BONE MARROW BIOPSY AND ASPIRATION; DIAGNOSTIC (WRVU 1.44) 06/23/2024 2:00 PM EST Office Visit [place] [address] Markel Borjas MD [facility] DR [place] [address] 03/01/2025 4:15 PM EDT Office Visit Dermatology at [place] [address] [place] [address] Marek Bonilla MD [address], [place] [address] Scheduled Procedures Name Priority Associated Diagnoses Date/Ti me (OSC MSURG) BONE MARROW BIOPSY AND ASPIRATION; DIAGNOSTIC (WRVU 1.44) Anemia, in pt with longstanding neutropenia 06/05/2024 2:00 PM EST documented as of this encounter Visit Diagnoses Diagnosis Rosacea Acrochordon Unspecified hypertrophic and atrophic condition of skin documented in this encounter Care Teams Pharmaceutical Assistant Relationship Specialty Start Date End Date Deborah Quiroga APRN PCP - General Family Medicine 03/24/16 02/04/23 documented as of this encounter
--- OUTSIDE RECORDS SUMMARY | 2024-05-25 14:12 | XMS_ITS | Encounter Summary ---
Author Organization [facility] [place] [address] Care Team Providers Care Hair Spring Winder Name Role Phone Deborah Quiroga ANURAG Primary Care Provider [phone] Encounter Details Date Type Department Care Team (Late st Contact Info) Description 12/04/2016 External Results Hematology and Oncology at [place] [phone] Teresa Dodson RN Social History Tobacco Use [...] 10:00 AM EDT Office Visit Rheumatology at [place] [phone] Magdalena Peralta MD [facility] [place] [address] 06/05/2024 2:00 PM EST Hospital Encounter [place]patient [place] [address] Markel Borjas MD [facility] DR HEMATOLOGY [place] [address] 06/05/2024 2:00 PM EST - 06/05/2024 3:00 PM EST Surgery [place] [address] Markel Borjas MD [facility] DR HEMATOLOGY [place] [address] (OSC MSURG) BONE MARROW BIOPSY AND ASPIRATION; DIAGNOSTIC (WRVU 1.44) 06/23/2024 2:00 PM EST Office Visit Hematology [place] [address] Markel Bojras MD [facility] DR HEMATOLOGY [place] [address] 03/01/2025 4:15 PM EDT Office Visit Dermatology at [place] [address] [place] [address] Marek Bonilla MD [address], [place] [address] Scheduled Procedures Name Priority Associated Diagnoses Date/Ti [...] panel (non-fasting) (12/03/2016 11:35 AM EDT) Glucose 85([facility]) Blood Urea Nitrogen 11([facility]) Creatinine 0.93(Exte rnal Lab) Sodium 140(Exter nal Lab) Potassium 4.2(Exter nal Lab) Chloride 104(Exter nal Lab) Calcium 10.0(Exte rnal Lab) Protein, Total 8.1(Exter nal Lab) Albumin 3.5(Exter nal Lab) Bilirubin, Total 0.25(Exte rnal Lab) Alkaline Phosphatase 96([facility]) Aspartate Aminotransferase 18([facility]) Alanine Aminotransferase 21([facility]) Blood specimen (specimen) 12/03/2016 11:35 AM EDT Historical Provider CHEMISTRY ORDERAB LES * (ABNORMAL) CBC (with Diff) (12/03/2016 11:35 AM EDT) White Blood Cell 1.61(EXTER NAL/ABN) 4.4 - 10.8 Hemoglobin 13.0(Exter nal Lab) Hematocrit 39.8(Exter nal Lab) Platelet 248([facility]) Neutrophil Absolute (ANC) - Automated 0.5(CONTRACT PROGRAMMER AL/ABN) Blood specimen (specimen) 12/03/2016 11:35 AM EDT Historical Provider HEMATOLOGY ORDERA BLES documented in this encounter Visit Diagnoses Not on filedocumented in this encounter Care Teams Hair Spring Winder Relationship Specialty Start Date End Date Deborah Quiroga APRN PCP - General Family Medicine 03/24/16 02/04/23 documented as of this encounter
--- OUTSIDE RECORDS SUMMARY | 2024-05-25 14:12 | XMS_ITS | Encounter Summary ---
Author Organization [facility] [place] [address] Care Team Providers Care Manager Of Project Management Name Role Phone Deborah Quiroga APRN Primary Care Provider [phone] Encounter Details Date Type Department Care Team (Late st Contact Info) Description 06/08/2022 Ancillary Procedure Radiology Library [place] [facility] [place] [phone] Deborah Quiroga APRN [address] [place] [phone] Social History Tobacco Use Types Packs/Day [...] 10:00 AM EDT Office [place] [address] Magdalena Peralta MD [facility] [place] [address] 06/05/2024 2:00 PM EST Hospital Encounter [place]patient [place] [address] Markel Borjas MD [facility] [place] [address] 06/05/2024 2:00 PM EST - 06/05/2024 3:00 PM EST Surgery [place] [address] Markel Borjas MD [facility] [place] [address] (OSC MSURG) BONE MARROW BIOPSY AND ASPIRATION; DIAGNOSTIC (WRVU 1.44) 06/23/2024 2:00 PM EST Office Visit Hematology [place] [address] Markel Borjas MD [facility] DR [place] [address] 03/01/2025 4:15 PM EDT Office Visit Dermatology at [place] [address] [place] [address] Marek Bonilla MD [address], [place] [address] Scheduled Procedures Name Priority Associated Diagnoses Date/Ti [...] DX Spine (06/08/2022 12:00 AM EST) Narrative [facility] - 06/18/2022 10:57 AM EST This exam is auto-finalizing. It's purpose is for storage only. Deborah Quiroga APRN IMG FILM LIBRARY OR DERABLES [place], [place] documented in this encounter Visit Diagnoses Not on filedocumented in this encounter Care Teams Manager Of Project Management Relationship Specialty Start Date End Date Deborah Quiroga APRN PCP - General Family Medicine 03/24/16 02/04/23 documented as of this encounter
--- OUTSIDE RECORDS SUMMARY | 2024-05-25 14:12 | XMS_ITS | Encounter Summary ---
[place] [address] Care Team Providers Care Seo Expert Name Role Phone Ashley Quirogan Cornelius ANURAG Primary Care Provider [phone] Reason for Visit * Reason Comments Acrochordon Rosacea Encounter Details Date Type Department Care Team (Late st Contact Info) Description 12/05/2020 3:00 PM EDT Office Visit Dermatology at [address] [address] Marek Bonilla MD [address] [facility], [place] [address] Inflamed acrochordon Social History Tobacco Use Types [...] month for repeat check. CC: Deborah Quiroga BOAT JOINER HELPER documented in this encounter Plan of Treatment Upcoming Encounters Date Type Department Care Team (Late st Contact Info) Description 06/01/2024 10:00 AM EDT [place] [address] Magdalena Peralta MD [facility] [place] [address] 06/05/2024 2:00 PM EST Hospital Encounter Outpatient [place] [address] Markel Borjas MD [facility] [place] [address] 06/05/2024 2:00 PM EST - 06/05/2024 3:00 PM EST Surgery Outpatient [place] [address] Markel Borjas MD [facility] [place] [address] [facility] BONE MARROW BIOPSY AND ASPIRATION; DIAGNOSTIC (WRVU 1.44) 06/23/2024 2:00 PM EST Office Visit [place] [address] Markel Borjas MD [facility] [place] [address] 03/01/2025 4:15 PM EDT Office Visit Dermatology at [address] [place] [address] Marek Bonilla MD [address], TODD [place] [address] Scheduled Procedures Name Priority Associated Diagnoses Date/Ti me (OSC MSURG) BONE MARROW BIOPSY AND ASPIRATION; DIAGNOSTIC (WRVU 1.44) Anemia, in pt with longstanding neutropenia 06/05/2024 2:00 PM EST documented as of this encounter Visit Diagnoses Diagnosis Inflamed acrochordon Unspecified hypertrophic and atrophic condition of skin documented in this encounter Care Teams Seo Expert Relationship Specialty Start Date End Date Deborah Quiroga APRN PCP - General Family Medicine 03/24/16 02/04/23 documented as of this encounter
--- OUTSIDE RECORDS SUMMARY | 2024-05-25 14:12 | XMS_ITS | Encounter Summary ---
Author Organization [facility] [place] [address] Care Team Providers Care Animal Trapper Name Role Phone Deborah Quiroga APRN Primary Care Provider [phone] Encounter Details Date Type Department Care Team (Late st Contact Info) Description 06/05/2021 Interpretation Only [address] [phone] Deborah Quiroga APRN [address] [phone] Social History Tobacco Use Types Packs/Day Years [...] 10:00 AM EDT Office [place] [phone] Magdalena Peralta MD [facility] [place] [address] 06/05/2024 2:00 PM EST Hospital Encounter [place] [phone] Markel Borjas MD [facility] [place] [address] 06/05/2024 2:00 PM EST - 06/05/2024 3:00 PM EST Surgery [place] [address] Markel Borjas MD [facility] DR [place] [address] (OSC MSURG) BONE MARROW BIOPSY AND ASPIRATION; DIAGNOSTIC (WRVU 1.44) 06/23/2024 2:00 PM EST Office Visit [place] [phone] Markel Bojras MD [facility] DR [place] [address] 03/01/2025 4:15 PM EDT Office Visit Dermatology at [place] [address] [place] [phone] Marek Bonilla MD [address], [place] [address] Scheduled Procedures Name Priority Associated Diagnoses Date/Ti [...] DH RAD ADMITDTTM RAD PT RAD INFO [id number]^EVERET T^DEBORAH^E RAD EXAM DESC MADDSCTO^BREAST SCREEN TOMOSYNTHESIS BI^RIS [...] questions please contact the health acute care clinical nurse specialist that requested your imaging first. ? Electronically signed by: Rocael Villatoro MD, [facility] ([phone]), at 06/05/2021 1:27 PM Narrative 06/05/2021 1:27 [...] have questions please contactthe health acute care clinical nurse specialist that requested your imaging first. Deborah Quiroga APRN IMGerman MAMMO ORDERABLE S documented in this encounter Visit Diagnoses Not on filedocumented in this encounter Care Teams Animal Trapper Relationship Specialty Start Date End Date Deborah Quiroga APRN PCP - General Family Medicine 03/24/16 02/04/23 documented as of this encounter
--- OUTSIDE RECORDS SUMMARY | 2024-05-25 14:12 | XMS_ITS | Encounter Summary ---
[place] [address] Care Team Providers Care Mold Capper Name Role Phone Ashley Quirogan Cornelius ANURAG Primary Care Provider [phone] Reason for Visit * Reason Onset Date Comments Results 12/03/2016 Encounter Details Date Type Department Care Team (Late Contact Info) Description 12/03/2016 Telephone Hematology [place] [address] Yudith Valentine RN Results Social [...] EDT RN received call from Maddy at [facility] reporting critical WBC at 1.61, and ANC of 0.5. She will fax the full results to this office for compliance review specialist notified DR Borjas of above results documented in this encounter Plan of Treatment Upcoming Encounters Date Type Department Care Team (Late st Contact Info) Description 06/01/2024 10:00 AM EDT Office [place] [address] Magdalena Peralta MD [facility] [address] 06/05/2024 2:00 PM EST Hospital Encounter Outpatient Surgery Center [place] [phone] Markel Borjas MD [facility] [place] [address] 06/05/2024 2:00 PM EST - 06/05/2024 3:00 PM EST Surgery [place] [address] Markel Borjas MD [facility] [place] [address] (OSC MSURG) BONE MARROW BIOPSY AND ASPIRATION; DIAGNOSTIC (WRVU 1.44) 06/23/2024 2:00 PM EST Office Visit [place]ematology [place] [address] Markel Borjas MD [facility] [place] [address] 03/01/2025 4:15 PM EDT Office Visit Dermatology at [place] [address] [facility] [place] [address] Marek Bonilla MD [address], TODD A DERMATOLOGY [place], [place] [phone] Scheduled Procedures Name Priority Associated Diagnoses Date/Ti me (OSC MSURG) BONE MARROW BIOPSY AND ASPIRATION; DIAGNOSTIC (WRVU 1.44) Anemia, in pt with longstanding neutropenia 06/05/2024 2:00 PM EST documented as of this encounter Visit Diagnoses Not on filedocumented in this encounter Care Teams Mold Capper Relationship Specialty Start Date End Date Deborah Quiroga, RESEARCH ASSOCIATE PCP - General Family Medicine 03/24/16 02/04/23 documented as of this encounter
--- OUTSIDE RECORDS SUMMARY | 2024-05-25 14:12 | XMS_ITS | Encounter Summary ---
[place] [address] Care Team Providers Care Roll Press Operator Name Role Phone Junaid, Deborah Shields APRN Primary Care Provider [phone] Encounter Details Date Type Department Care Team (Late st Contact Info) Description 10/20/2016 11:20 AM EDT Office [place] [phone] Alirio Esparza MD S/P AVR Social History [...] postoperative tests done at [facility]. Her echo shows a well-seated valve. Her EF, for some reason, was read as in the 45% to 50% range. She had a normal EF to start. I think that will need to be repeated at [facility]. She has no perivalve leak. [...] should continue to see Dr. Burrell, her social worker psychiatric at [facility]. cc: Dr. Burrell documented in this encounter Plan of Treatment Upcoming Encounters Date Type Department Care Team (Late st Contact Info) Description 06/01/2024 10:00 AM EDT Office [place] [address] Magdalena Peralta MD [facility] [place] [address] 06/05/2024 2:00 PM EST Hospital Encounter [place]patient [place] [address] Markel Borjas MD [facility] [place] [address] 06/05/2024 2:00 PM EST - 06/05/2024 3:00 PM EST Surgery [place]patient [place] [address] Markel Borjas MD [facility] [place] [address] (OSC MSURG) BONE MARROW BIOPSY AND ASPIRATION; DIAGNOSTIC (WRVU 1.44) 06/23/2024 2:00 PM EST Office Visit Hematology [place] [address] Markel Borjas MD [facility] [place] [address] 03/01/2025 4:15 PM EDT Office Visit Dermatology at [place] [address] [place] [phone] Marek Bonilla MD [address], [place] [address] Scheduled Procedures Name Priority Associated Diagnoses Date/Ti me (OSC MSURG) BONE MARROW BIOPSY AND ASPIRATION; DIAGNOSTIC (WRVU 1.44) Anemia, in pt with longstanding neutropenia 06/05/2024 2:00 PM EST documented as of this encounter Visit Diagnoses Diagnosis S/P AVR Heart valve replaced by other means documented in this encounter Care Teams Roll Press Operator Relationship Specialty Start Date End Date Deborah Quiroga APRN PCP - General Family Medicine 03/24/16 02/04/23 documented as of this encounter
--- OUTSIDE RECORDS SUMMARY | 2024-05-25 14:12 | XMS_ITS | Encounter Summary ---
Author Organization [facility] Address [facility] [place] [address] Care Team Providers Care Medical Technical Writer Name Role Phone Deborah Quiroga APRN Primary Care Provider [phone] Encounter Details Date Type Department Care Team (Late st Contact Info) Description 06/18/2017 External Results Hematology and Oncology at [place] [phone] Alexandrea Greenwood RN Neutropenia, unspecified type Social [...] 10:00 AM EDT Office Visit Rheumatology at [place] [phone] Magdalena Peralta MD [facility] [place] [address] 06/05/2024 2:00 PM EST Hospital Encounter Outpatient Surgery Center [place] [phone] Markel Borjas MD [facility] DR HEMATOLOGY [place] [address] 06/05/2024 2:00 PM EST - 06/05/2024 3:00 PM EST Surgery [place] [address] Markel Borjas MD [facility] DR [place] [address] (OSC MSURG) BONE MARROW BIOPSY AND ASPIRATION; DIAGNOSTIC (WRVU 1.44) 06/23/2024 2:00 PM EST Office Visit [place]ematology [place] [address] Markel Borjas MD [facility] DR [place] [address] 03/01/2025 4:15 PM EDT Office Visit Dermatology at [place] [address] [place] [address] Marek Bonilla MD [address], [place] [address] Scheduled Procedures Name Priority Associated [...] documented in this encounter Care Teams Medical Technical Writer Relationship Specialty Start Date End Date Deborah Quiroga APRN PCP - General Family Medicine 03/24/16 02/04/23 documented as of this encounter
--- OUTSIDE RECORDS SUMMARY | 2024-05-25 14:12 | XMS_ITS | Encounter Summary ---
Author Organization [facility] [place] [address] Care Team Providers Care Coil Cutter Name Role Phone Deborah Quiroga ANURAG Primary Care Provider [phone] Encounter Details Date Type Department Care Team (Late st Contact Info) Description 01/09/2022 Refill Dermatology at [address] [address] Lupe Connor RN Social [...] 10:00 AM EDT Office [place] [phone] Magdalena Peralta MD [facility] [place] [address] 06/05/2024 2:00 PM EST Hospital Encounter Outpatient [place] [phone] Markel Borjas MD [facility] DR HEMATOLOGY [place] [address] 06/05/2024 2:00 PM EST - 06/05/2024 3:00 PM EST Surgery Outpatient [place] [address] Markel Borjas MD [facility] DR HEMATOLOGY [place] [address] (OSC MSURG) BONE MARROW BIOPSY AND ASPIRATION; DIAGNOSTIC (WRVU 1.44) 06/23/2024 2:00 PM EST Office Visit Hematology [place] [address] Markel Borjas MD [facility] DR HEMATOLOGY [place] [address] 03/01/2025 4:15 PM EDT Office Visit Dermatology at [place] [address] [place] [phone] Marek Bonilla MD [address], [place] [address] Scheduled Procedures Name Priority Associated Diagnoses Date/Ti me (OSC MSURG) BONE MARROW BIOPSY AND ASPIRATION; DIAGNOSTIC (WRVU 1.44) Anemia, in pt with longstanding neutropenia 06/05/2024 2:00 PM EST documented as of this encounter Visit Diagnoses Not on filedocumented in this encounter Care Teams Coil Cutter Relationship Specialty Start Date End Date Deborah Quiroga APRN PCP - General Family Medicine 03/24/16 02/04/23 documented as of this encounter
--- OUTSIDE RECORDS SUMMARY | 2024-05-25 14:13 | XMS_ITS | Encounter Summary ---
[place] [address] Care Team Providers Care Machine Heel Builder Name Role Phone Deborah Quiroga APRN Primary Care Provider [phone] Reason for Visit * Reason Onset Date Comments Prior Authorization 09/11/2016 Neulasta Encounter Details Date Type Department Care Team (Late st Contact Info) Description 09/11/2016 Telephone Hematology [place] [phone] Monica Wick Prior Authorization (Neulasta ) Social [...] AM EST Prior Auth for Neulasta (Approved) [facility] is a covered facility under the members plan. ID# [id number] Call placed to [phone] Rationale: Can you please start a PA for this pt to receive as outpatient at [facility] on 09/16/16? 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 ??Her last ANC was 0.56 (or 560) on 08/04/16. ??This will need to be approved through her medical as out patient. J code for neulasta. ?? [id number]. Spoke w/ Anna Marie Call Reference [id number] Copay: $ Deductible is not met, patient will have out of pocket costs until deductible is met. documented in this encounter Plan of Treatment Upcoming Encounters Date Type Department Care Team (Late st Contact Info) Description 06/01/2024 10:00 AM EDT Office Visit Rheumatology at [place] [phone] Magdalena Peralta MD [facility] [place] [address] 06/05/2024 2:00 PM EST Hospital Encounter Outpatient Surgery Center [place] [phone] Markel Borjas MD [facility] DR [place] [address] 06/05/2024 2:00 PM EST - 06/05/2024 3:00 PM EST Surgery Outpatient [place] [phone] Markel Borjas MD [facility] DR [place] [address] (OSC MSURG) BONE MARROW BIOPSY AND ASPIRATION; DIAGNOSTIC (WRVU 1.44) 06/23/2024 2:00 PM EST Office Visit Hematology [place] [address] Markel Borjas MD [facility] DR [place] [address] 03/01/2025 4:15 PM EDT Office Visit Dermatology at [address] [place] [address] Marek Bonilla MD [address] [place] [address] RD, [place] [address] Scheduled Procedures Name Priority Associated Diagnoses Date/Ti me (OSC MSURG) BONE MARROW BIOPSY AND ASPIRATION; DIAGNOSTIC (WRVU 1.44) Anemia, in pt with longstanding neutropenia 06/05/2024 2:00 PM EST documented as of this encounter Visit Diagnoses Not on filedocumented in this encounter Care Teams Machine Heel Builder Relationship Specialty Start Date End Date Deborah Quiroga APRN PCP - General Family Medicine 03/24/16 02/04/23 documented as of this encounter
--- OUTSIDE RECORDS SUMMARY | 2024-05-25 14:13 | XMS_ITS | Encounter Summary ---
Author Organization [facility] Address [facility] [place] [address] Care Team Providers Care Oyster Washer Name Role Phone Deborah Quiroga APRN Primary Care Provider [phone] Encounter Details Date Type Department Care Team (Late st Contact Info) Description 07/31/2016 External Results Hematology and Oncology at [place] [phone] Alexandrea Greenwood RN Neutropenia, unspecified type Social [...] 10:00 AM EDT Office Visit Rheumatology at [place] [phone] Magdalena Peralta MD [facility] [address] 06/05/2024 2:00 PM EST Hospital Encounter Outpatient Surgery Center [place] [phone] Markel Borjas MD [facility] [place] [address] 06/05/2024 2:00 PM EST - 06/05/2024 3:00 PM EST Surgery [place] [address] Markel Borjas MD [facility] DR HEMATOLOGY [place] [address] (OSC MSURG) BONE MARROW BIOPSY AND ASPIRATION; DIAGNOSTIC (WRVU 1.44) 06/23/2024 2:00 PM EST Office Visit Hematology [place] [address] Markel Borjas MD [facility] DR HEMATOLOGY [place] [address] 03/01/2025 4:15 PM EDT Office Visit Dermatology at [place] [address] [place] [address] Marek Bonilla MD [address], [place] A DERMATOLOGY [place], [place] [address] Scheduled Procedures Name Priority Associated Diagnoses Date/Ti [...] type documented in this encounter Care Teams Oyster Washer Relationship Specialty Start Date End Date Deborah Quiroga, RV SERVICE TECHNICIAN PCP - General Family Medicine 03/24/16 02/04/23 documented as of this encounter
--- OUTSIDE RECORDS SUMMARY | 2024-05-25 14:13 | XMS_ITS | Encounter Summary ---
[place] [address] Care Team Providers Care Upholstery Repairer Name Role Phone Deborah Quiroga ANURAG Primary Care Provider [phone] Encounter Details Date Type Department Care Team (Late st Contact Info) Description 09/11/2016 Orders Only Hematology [place] [address] Alexandrea Greenwood RN Social History [...] [facility] [place] [place] [phone] Date: 09/11/16 Patient Name: Purnima Thacker : 1955 Diagnosis: Neutropenia Referral to [site]: [facility] Orders: ? Growth factor: [x] Neulasta 6mg SQ injection x 1 on 09/16/16 Signature: Markel Borjas MD beeper # [id number] Co-signature [if needed]: documented in this encounter Plan of Treatment Upcoming Encounters Date Type Department Care Team (Late st Contact Info) Description 06/01/2024 10:00 AM EDT Office Visit Rheumatology at [place] [phone] Magdalena Peralta MD [facility] [place] [address] 06/05/2024 2:00 PM EST Hospital Encounter Outpatient Surgery Center [place] [phone] Markel Borjas MD [facility] [address] [place] [address] 06/05/2024 2:00 PM EST - 06/05/2024 3:00 PM EST Surgery Outpatient [place] [address] Markel Borjas MD [facility] [address] [place] [address] (OSC MSURG) BONE MARROW BIOPSY AND ASPIRATION; DIAGNOSTIC (WRVU 1.44) 06/23/2024 2:00 PM EST Office Visit Hematology [place] [address] Markel Borjas MD [facility] DR [place] [address] 03/01/2025 4:15 PM EDT Office Visit Dermatology at [place] [address] [place] [address] Marek Bonilla MD [address], [place] [address] Scheduled Procedures Name Priority Associated Diagnoses Date/Ti [...] M ? (Age): 1955(61y) Med Rec#: ? [id number] ?Sex: ?M ? Site Loc: ? [facility] ?Ht / Wt: ??(cm)/ (kg) ? Pt. Loc: ?OR ? Study Date: ?? 09/21/2016 ?Pt. Type: Tape: ? 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 AVR for severe Rhythm: ? [...] ? Mid-Inferior ?Normal ? Mid-Inferoseptal ?Normal ? [place]-Septal ? Normal ? [place]-Anterior ? Normal ? [place]-Lateral ?Normal ? [place]-Inferior ? Normal ? [place]-Tip ?Normal ? This report has been electronically signed by: Henrik Yarbrough M.D. ? 09/22/2016 08:30:41 Images reviewed and interpretation verified [facility] Cardiac Ultrasound Laboratory Procedure Note Henrik Yarbrough MD - 09/22/2016 Procedure: Transesophageal Echocardiogram Patient: ANDRWE Mejias (Age): 1955(61y) Med Rec#: [id number] Sex: M Site Loc: [facility] Ht / Wt: (cm)/ (kg) Pt. Loc: OR Study Date: 09/21/2016 Pt. 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 09/22/2016 08:30:41 Images reviewed and interpretation verified [facility] Cardiac Ultrasound Laboratory Unknown ECHO ORDERABLES documented in this encounter Visit Diagnoses Not on filedocumented in this encounter Care Teams Upholstery Repairer Relationship Specialty Start Date End Date Deborah Quiroga APRN PCP - General Family Medicine 03/24/16 02/04/23 documented as of this encounter
--- OUTSIDE RECORDS SUMMARY | 2024-05-25 14:13 | XMS_ITS | Encounter Summary ---
[place] [address] Care Team Providers Care Stretcher Leveler Operator Helper Name Role Phone Junaid, Deborah Shields APRN Primary Care Provider [phone] Reason for Visit * Auth/Cert Specialty Diagnoses / Procedures Referred By Crispin t Referred To Contact Diagnoses Aortic stenosis Procedures PRO REPLACE AORT VALV, PROSTH VALV @REPLACE AORTIC VALVE, OPEN, W\CPB, W\PROSTHETIC VALVE (WRVU 41.32) Referral ID Status Reason Start Date Expiration Date Visits Re quested Visits Authorized [id number] 1 1 Encounter Details Date Type Department Care Team (Late st Contact Info) Description 09/21/2016 7:25 AM EST Anesthesia Event [place] [address] Luis Enrique Quarles MD [facility] DR [place] [address] Henrik Cooper MD [facility] [place] [address] Anesthesia Record Procedure Summary Procedure Name Responsible [...] 0819 Sternotomy 0844 CV Bypass init 1009 Recycling Specialist 1014 An Clamp Remove 1031 CP [...] Tube 09/21/16 (#28 angled chest tube to [place]: left: pericardial); Left; 09/22/16; 1119 09/21/16 0000 by Toshia Alejandre RN 09/22/16 1119 by Vero Bonilla RN Chest Tube 09/21/16 (#28 straig ht chest tube to [place]; right: mediastinal'); Right; mediastinum; 09/22/16; 1118 09/21/16 0000 by Toshia Alejandre RN 09/22/16 1118 by Vero Bonilla RN (RETIRED) Peripheral IV Line - Single Lumen 09/21/16; 0648; metacarpal vein (top of hand), left; vdyh-sov-jznnrn catheter system; 20 gauge; valdo Arteaga; 09/23/16; [...] Cooper MD - 09/21/2016 6:50 PM EST [facility] Department of Anesthesiology Post-procedure Note Patient: Purnima Thacker Procedure Summary Date Anesthesia Start Anesthesia Stop Room / Location 09/21/16 07 1152 [facility] OR 16 / [facility] MAIN OR Procedure Diagnosis Surgeon Responsible Provider @REPLACE AORTIC VALVE, OPEN, W\CPB, W\PROSTHETIC VALVE (WRVU 41.32) (N/A Chest); @AORTOPLASTY FOR SUPRAVALVULAR STENOSIS (WRVU 29.33) (N/A Chest) () Alirio Francisco MD Clark, Jeffrey A, MD All Anesthesia Providers: Anesthesiologist: Luis Enrique Quarles MD Transcription Specialist: Henrik Cooper MD Last (1hr) Vitals: BP Temp 36.1 ??C (97 ??F) (09/21/16 1800) Pulse 79 (09/21/16 1800) Resp 11 (09/21/16 1800) SpO2 98 % (09/21/16 1800) Patient Location: [facility] Level of Consciousness: Sedated (Pharmacologic/Intentional) [...] 10:00 AM EDT Office [place] [phone] Magdalena Peralta MD [facility] [place] [address] 06/05/2024 2:00 PM EST Hospital Encounter Outpatient [place] [address] Markel Borjas MD [facility] DR HEMATOLOGY [place] [address] 06/05/2024 2:00 PM EST - 06/05/2024 3:00 PM EST Surgery Outpatient [place] [address] Markel Borjas MD [facility] DR HEMATOLOGY [place] [address] (OSC MSURG) BONE MARROW BIOPSY AND ASPIRATION; DIAGNOSTIC (WRVU 1.44) 06/23/2024 2:00 PM EST Office Visit [place] [address] Markel Borjas MD [facility] DR HEMATOLOGY [place] [address] 03/01/2025 4:15 PM EDT Office Visit Dermatology at [place] [address] [place] [address] Marek Bonilla MD [address], [place] [address] Scheduled Procedures Name Priority Associated Diagnoses Date/Ti [...] mg documented in this encounter Care Teams Stretcher Leveler Operator Helper Relationship Specialty Start Date End Date Deborah Quiroga, BABY STROLLER RENTAL CLERK PCP - General Family Medicine 03/24/16 02/04/23 documented as of this encounter
--- OUTSIDE RECORDS SUMMARY | 2024-05-25 14:13 | XMS_ITS | Encounter Summary ---
[facility] [address] Care Team Providers Care Aeroplane Pilot Name Role Phone Deborah Quiroga APRN Primary Care Provider [phone] Encounter Details Date Type Department Care Team (Late st Contact Info) Description 08/18/2016 4:20 PM EST [place] [phone] Social History Tobacco Use Types Packs/Day Years [...] 10:00 AM EDT [place] [phone] Magdalena Peralta MD [facility] [place] [address] 06/05/2024 2:00 PM EST Hospital Encounter [place] [phone] Markel Borjas MD [facility] [address] HEMATOLOGY [place] [address] 06/05/2024 2:00 PM EST - 06/05/2024 3:00 PM EST Surgery [place] [phone] Markel Borjas MD [facility] [address] HEMATOLOGY [place] [address] (OSC MSURG) BONE MARROW BIOPSY AND ASPIRATION; DIAGNOSTIC (WRVU 1.44) 06/23/2024 2:00 PM EST Office Visit [place] [phone] Markel Borjas MD [facility] [address] HEMATOLOGY [place] [address] 03/01/2025 4:15 PM EDT Office Visit Dermatology at [address] [phone] Marek Bonilla MD [address], [place] [address] Scheduled Procedures Name Priority Associated Diagnoses Date/Ti me (OSC MSURG) BONE MARROW BIOPSY AND ASPIRATION; DIAGNOSTIC (WRVU 1.44) Anemia, in pt with longstanding neutropenia 06/05/2024 2:00 PM EST documented as of this encounter Visit Diagnoses Not on filedocumented in this encounter Care Teams Aeroplane Pilot Relationship Specialty Start Date End Date Deborah Quiroga APRN PCP - General Family Medicine 03/24/16 02/04/23 documented as of this encounter
--- OUTSIDE RECORDS SUMMARY | 2024-05-25 14:13 | XMS_ITS | Encounter Summary ---
[place] [address] Care Team Providers Care Shallot Cleaner Name Role Phone Ashley Quirogazac Shields APRN Primary Care Provider [phone] Reason for Visit * Auth/Cert Specialty Diagnoses / Procedures Referred By Crispin t Referred To Contact Diagnoses Aortic stenosis Procedures PRO REPLACE AORT VALV, PROSTH VALV @REPLACE AORTIC VALVE, OPEN, W\CPB, W\PROSTHETIC VALVE (WRVU 41.32) Referral ID Status Reason Start Date Expiration Date Visits Re quested Visits Authorized [id number] 1 1 Encounter Details Date Type Department Care Team (Late st Contact Info) Description 09/21/2016 7:30 AM EST - 09/21/2016 12:04 PM EST Surgery [place] [address] Alirio Esparza MD @REPLACE AORTIC VALVE, OPEN, [...] Patient Age: 61 y.o. Birthdate: 1955 Language: Nepali Race: White Ethnicity: Not nor Admit Date: 09/21/2016 Discharge Date: 09/25/2016 Attending Physician: Alirio Esparza MD Follow-up Recommendations for Providers: Please continue routine management of cardiovascular risk factors including blood pressure, lipids,glucose, etc. Please note any changes to medications. Patient to follow-up with PCP, Deborah Quiroga APRN, in 1-2 weeks. Patient to follow-up with Van Driver Helper, Dr. Antelmo Burrell, in two weeks. Patient to follow-up with Cardiac Surgery, Dr. Alirio Esparza, to be scheduled for before 10/19/2016, with CXR, EKG, and Echo. Inpatient Provider Contact Information: [facility] Section of Cardiac Surgery [facility] [place] [address] FAX [phone] Discharge Diagnoses (Hospital Problems) Primary Diagnoses: Secondary [...] 41.32) performed by Alirio Esparza MD at [facility] MAIN OR ??? Pro aortoplas for supravalv sten N/A 09/21/2016 @AORTOPLASTY FOR SUPRAVALVULAR STENOSIS (WRVU 29.33) performed by Alirio Esparza MD at [facility] MAIN OR Prior To Admission [...] Hospital Course: Purnima Thacker was admitted to [facility] on 09/21/2016 via the Same Day [...] Alirio Esparza and/or the Cardiac Surgery Physician Remote Encoding Center Manager Team may be reached at . Antibiotic prophylaxis: You will need to take antibiotics prior to many invasive tests and treatments, such as dental cleaning, which should be done every 6 months. Your primary care physician or your dentist can prescribe this medication. Please refer to the card with the [place] [employer] Guidelines for more information. You have been provided with 3 copies of this card. Keep one for your self. Give one to your primary care physician and one to your dentist. Please refer to the [place] [employer] Guidelines for more information. Good [...] Dr. Alirio Jones. You may use a Kief Track or treadmill but avoid any pulling [...] friends, go to a movie, go to scientologist, etc. Heavy activities: No hunting, skiing, jogging, [...] should resume a low fat, low cholesterol, [place] [employer] Diet. Driving: No driving until [...] the outpatient Phase 2 Cardiac Rehabilitation at [facility]. The patient agrees to a referral to this program. The referral will be sent at discharge and the patient should be contacted by the program within 1- 2 weeks from discharge. Future Appointments and Orders Future Appointments Provider Department Dept Phone 11/20/2016 11:30 AM Markel Borjas MD [facility] [phone] Future Orders Complete By Expires Echocardiogram Transthoracic([place]) [DNM634 Custom] 10/18/2016 (Approximate) 09/18/2017 Process Instructions: If the Echocardiogram is to be PERFORMED in a DH location other than [place]--STOP and order XHC940, Echocardiogram South/External. Scheduling Instructions: Questions: Is a Bubble Study requested?: No Does the patient have Congenital Heart Disease?: No Does patient require sedation?: None GA rationale: Should this service be billed to the research sponsor?: EKG 12 Lead [EKG1 Custom] 10/18/2016 (Approximate) 09/25/2017 Process Instructions: Scheduling Instructions: Questions: Which DH location will this be performed?: [place] Is a rhythm strip needed?: No If EKG Reason is Pre-op Evaluation, indicate diagnosis for surgery.: Should this service be billed to the research sponsor?: XR Chest PA & Lateral (Generic) [[id number] Custom] 10/18/2016 (Approximate) 09/25/2017 Process Instructions: Scheduling Instructions: Questions: Where will study be performed?: [facility]- Radiology Portable exam?: No Reason for exam and clinical history: s/p AVReplacement, patch annuloplasty 1 month f/u Other pertinent information: Stat read required?: Date of injury if applicable: Requested Time: Referral to Cardiac Rehab [CKA899 Custom] As directed Process Instructions: If no progress note charted, please enter Clinical details in comments. Scheduling Instructions: Questions: My question or request is: s/p AVR. Cardiac rehab at [facility] Referral to Home Health - at DISCHARGE [FHN5121 CPT(R)] As directed Process Instructions: Scheduling Instructions: Comments: DOCUMENTATION FOR VNA SERVICES (INCLUDING THOSE PATIENTS WITH MEDICARE COVERAGE REQUIRING HOME VNA SERVICES AND/OR HOSPICE SERVICES) PATIENT'S LOCATION: Purnimakary Gallego[address] [address] (home) No relevant phone numbers on file. Bilingual Speech Therapist's Name: self In discussion with the attending physician, it is certified that this patient is under their care and that they, or a Nurse Practitioner, or Physician Remote Encoding Center Manager who is working directly with them, [...] for services as follows: HOME HEALTH AGENCY: [facility] PHONE: [phone] FAX: [phone] RN orders: Cardiopulmonary assessment, incisional assessment, assess [...] issues please call the Cardiac SurgeryOffice at [phone] FOR MEDICARE ONLY: In discussion with the [...] AFTER 09/30/16 Signed: Crispin Aranda PA-C 09/25/2016 [facility] Section of Cardiac Surgery [facility] [place] [address] FAX [phone] Date: 09/25/2016 CC: ANURAG Alford Caryn E, APRN [address] [place] [address] documented in this encounter Discharge Instructions * [...] Alirio Esparza and/or the Cardiac Surgery Physician Remote Encoding Center Manager Team may be reached at . Antibiotic prophylaxis: You will need to take antibiotics prior to many invasive tests and treatments, such as dental cleaning, which should be done every 6 months. Your primary care physician or your dentist can prescribe this medication. Please refer to the card with the [place] [employer] Guidelines for more information. You have been provided with 3 copies of this card. Keep one for your self. Give one to your primary care physician and one to your dentist. Please refer to the [place] [employer] Guidelines for more information. Good [...] Dr. Alirio Jones. You may use a Kief Track or treadmill but avoid any pulling [...] friends, go to a movie, go to scientologist, etc. Heavy activities: No hunting, skiing, jogging, [...] should resume a low fat, low cholesterol, [place] [employer] Diet. Driving: No driving until [...] the outpatient Phase 2 Cardiac Rehabilitation at [facility]. The patient agrees to a [...] PM EST Cardiac Surgery Progress Note: ID: [id number] S/p AVR, patch aortoplasty POD#2. PMH of [...] Gas) No results found for: PHART, PO2ART, SPF0XYT Assessment/Plan: TPW out this am. (+) BM. [...] Signed: Crispin Aranda PA-C 09/24/2016 Team pager: [phone]; [phone] after 5pm [facility] Section of Cardiac Surgery * Leonor Henson S, INSTRUMENT REPAIRER HELPER - 09/23/2016 10:48 AM EST Cardiac Surgery Progress Note: ID: [id number] s/p AVR, patch aortoplasty POD#2. PMH of [...] Gas) No results found for: PHART, PO2ART, FSF8WTK Assessment/Plan: s/p AVR, patch aortoplasty POD#2. PMH of Neutropenia, HLD, HTN, Depression, obesity, . Transferred from [facility] yesterday and doing well. Pathway. [...] Surgeon on rounds. Signed: Leonor Henson APRN [facility] Section of Cardiac Surgery Date: 09/23/2016 * Nico Palacios PA - 09/22/2016 9:56 AM EST Cardiac Surgery Progress Note: ID: [id number] s/p AVR, patch aortoplasty POD#1. PMH of [...] NT, ND, soft. Ext: Moves all extremities. [place], well perfused. Incisions: C/D/I Tubes/Lines/Drains: PIV, leanna, [...] Attending Surgeon on rounds. Signed: EKATERINA KIM [facility] Section of Cardiac Surgery Date: 09/22/2016 [...] Outcome (s) achieved Date Met: 09/25/16 09/25/16 2015 Coping/Psychosocial Plan Of Care Reviewed With patient [...] health, home with outpatient services Lalitha Cohen [facility] Pager: [phone] Inpatient Physical Therapy Patient status, treatment interventions, and goals discussed with student. I am in agreement with all details and associated flowsheet rows as documented and was present for all aspects of the patient treatment session. Nery Jaramillo, CANDY Pager [phone] Problem: Acute Rehab Services Goal & Intervention Plan Goal: Bed Mobility Goal Stand Alone Therapy Goal Outcome: Ongoing (Interventions Implemented as Appropriate) 09/22/16 1611 09/25/16 0947 Bed Mobility Goal Bed Mobility Goal, Time to Achieve 4 days -- Bed Mobility Goal, Activity Type scoot/bridge;supine to sit/sit to supine -- Bed Mobility Goal, Gay Level independent -- Bed Mobility Goal, Additional [...] Achieve 4 days -- Gait Training Goal, Gay Level independent -- Gait Training Goal, Distance [...] assist, home with home health [facility] Pager: [phone] Inpatient Physical Therapy Patient status, treatment interventions, and goals discussed with student. I am in agreement with all details and associated flowsheet rows as documented and was present for all aspects of the patient treatment session. Nery Jaramillo, SOCIAL MEDIA CAMPAIGN MANAGER Pager [phone] Problem: Acute Rehab Services Goal & Intervention Plan Goal: Bed Mobility Goal Stand Alone Therapy Goal Outcome: Ongoing (Interventions Implemented as Appropriate) 09/22/16161009/23/161411 Bed Mobility Goal Bed Mobility Goal, Time to Achieve 4 days -- Bed Mobility Goal, Activity Type scoot/bridge;supine to sit/sit to supine -- Bed Mobility Goal, Gay Level independent -- Bed Mobility Goal, Additional [...] Achieve 4 days -- Gait Training Goal, Gay Level independent -- Gait Training Goal, Distance [...] days -- Transfer Training Goal, Activity Type rmy-gv-vkuos/edbyf-cv-hbr;srt-zj-ddfhs/iyamu-uf-xrk -- Transfer Train Goal, Gay Level independent -- Transfer Training Goal, Additional Goal abides sternal precautions -- Transfer Training Goal, Outcome -- goal met * Consult Note - Jana Crenshaw RN - 09/23/2016 9:41 AM EST [facility] CARDIAC REHABILITATION Purnima Thacker was seen today regarding participation in the outpatient Phase 2 Cardiac Rehabilitation at [facility]. The patient agrees to a [...] Another Service: (cardiac rehab) NICOLE HERNANDEZ, PT Pager:[phone] Inpatient Physical Therapy Problem: Acute Rehab Services Goal & Intervention Plan Goal: Bed Mobility Goal Stand Alone Therapy Goal Outcome: Ongoing (Interventions Implemented as Appropriate) 09/22/161610 Bed Mobility Goal Bed Mobility Goal, Time to Achieve 4 days Bed Mobility Goal, Activity Type scoot/bridge;supine to sit/sit to supine Bed Mobility Goal, Gay Level independent Bed Mobility Goal, Additional Goal able to abide sternal precautions during transfers Goal: Gait Training Goal Stand Alone Therapy Goal Outcome: Ongoing (Interventions Implemented as Appropriate) 09/22/161610 Gait Training Goal Gait Training Goal, Date Established 09/22/16 Gait Training Goal, Time to Achieve 4 days Gait Training Goal, Gay Level independent Gait Training Goal, Distance to Achieve ascend and descends 2 steps independently Goal: Goal Transfer Training Stand Alone Therapy Goal Outcome: Ongoing (Interventions Implemented as Appropriate) 09/22/161610 Goal Transfer Training Transfer Training Goal, Time to Achieve 4 days Transfer Training Goal, Activity Type bjv-dq-bytal/rmjot-pe-gjg;nmj-er-zqttx/lvpka-ob-pej Transfer Train Goal, Gay Level independent Transfer Training Goal, Additional Goal [...] of completing AD's at home, chooses her fmcktj-il-wxu, Martha Thacker (home) for her DPOAH, 2nd choice in friend, Nitesh Rad, [place], [place] Current Coping/Education/Information Needs: patient sitting up [...] close by, Rashad & Raymond, and her opqlwy-qc-osl Martha Thacker who she has chosen to be her DPOAH. Also has a friend Nitesh Leroy who lives in [place], [place], also her DPOAH choice. Behavioral Health History: none on file in [facility] Substance Use/Abuse: none on file in [facility] Other Pertinent/Service Specific Information: none Health/Prescription Coverage: Primary Insurance: [employer] Secondary Insurance: none Prescription Coverage: yes, per patient no issues Preferred Pharmacy: ?? Other: none Primary Care Provider: Deborah Quiroga, INSTRUMENT REPAIRER HELPER [phone] Patient/Caregiver Goals of Treatment: per medical team recommendations at discharge for CT surgery Potential Needs for Transition of Care: Rehab/SNF: TBD Home Health: TBD DME: no Dialysis: no Community Resources: non3 Transportation: ride home with a friend Other: none Anticipated Barriers to Discharge/Special Considerations: none anticipated at this time Plan: patient will need VNA services at discharge. The patient/civil rights representative has been provided a list of Home Health Agencies/DME vendors which servetheir preferred geographic area. A letter describing our affiliations was reviewed with them and they were educated about their right to choose where referrals are placed. Patient requests referral to: [facility] [employer]. PHONE: [phone] FAX: [phone] Expected date of discharge: Fri/Sat? CM called VNA to confirm referral, talked with VALDO Bunn/intake who stated she was familiar w/patient & would monitor her progress through curaspan. Referral routed to the Survey Coordinator for matching with agency/vendor and to provide any required information. A member of the Care Management team will continue to monitor progress, follow for continuity of care and assist with transition of care planning. Amanda Moreno RN Pager: [phone] * Op Note - Alirio Esparza MD - 09/21/2016 12:53 PM EST 09/23/2016 Purnima Thacker 1955 [id number] Preoperative Diagnosis: Symptomatic aortic stenosis Postoperative Diagnosis: Symptomatic aortic stenosis Procedure: Aortic valve replacement: Bovine Pericardial 25 mm Surgeon: Alirio Esparza M.D. Remote Encoding Center Manager: Philip BALL Anesthesia: General endotracheal anesthesia [...] The patient was transported to the [facility] on levo. All counts were [...] Operative Note Patient Name: Purnima Thacker : [id number] MR#: [id number] Case Date: 09/21/2016 Surgeon: Surgeon(s) and Role: * Alirio Esparza MD - Primary * Nico Palacios PA - Physician Remote Encoding Center Manager Preoperative diagnosis: Postoperative diagnosis: Procedure(s) (LRB): [...] 10:00 AM EDT Office Visit Rheumatology at [place] [phone] Magdalena Peralta MD [facility] [place] [address] 06/05/2024 2:00 PM EST Hospital Encounter Outpatient Surgery Center [place] [phone] Markel Borjas MD [facility] [address] [place] [address] 06/05/2024 2:00 PM EST - 06/05/2024 3:00 PM EST Surgery [place]patient [place] [address] Markel Borjas MD [facility] [address] [place] [address] (OSC MSURG) BONE MARROW BIOPSY AND ASPIRATION; DIAGNOSTIC (WRVU 1.44) 06/23/2024 2:00 PM EST Office Visit Hematology [place] [address] Markel Borjas MD [facility] [place] [address] 03/01/2025 4:15 PM EDT Office Visit Dermatology at [place] [address] [facility] [place] [phone] Marek Bonilla MD [address], [place] [address] Scheduled Orders Name Type Priority Associated Diagnoses [...] IMPLANTABLE DEVICES SCAN 09/26/2016 12:00 AM EST FAMILY SERVICES MANAGER SCAN 09/26/2016 12:00 AM EST POTASSIUM [...] PM EST BLOOD GAS ARTERIAL POC Routine 02/20/201 7 12:20 PM EST BLOOD GAS ARTERIAL [...] SCAN EXT O RDR/RSLT * SCAN DOC: FAMILY SERVICES MANAGER (09/26/2016 12:00 AM EST) Anatomical Region Laterality Modality Other Narrative 09/26/2016 12:00 AM EST Ordered by an unspecified provider. Scanning Provider MEDIA MGR SCAN EXT O RDR/RSLT * Potassium (09/25/2016 4:32 AM EST) Potassium 4.4 3.5 - 5.0 mmol/L [facility] [...] CHEMISTRY ORDERABLE S [facility] [place] [address] * (ABNORMAL) Differential, Automated (09/24/2016 9:56 AM EST) Neutrophil % 76.8 % [facility] Neutrophil Absolute 7.79(H) 1.70 - 6.10 x10(3)/[facility] LABOR[facility] Lymph % 11.1 % [facility] Lymphocytes Abs 1.1 0.9 - 3.2 x10(3)/[facility] LABORATORY Monocyte % 8.5 % [facility] Monocyte Abs 0.9 0.3 - 0.9 x10(3)/[facility] LABORATORY Eos % 0.5 % [facility] Eosinophils Abs 0.0 0.0 - 0.4 x10(3)/[facility] LABOR[facility]ORY Basophil % 0.2 % [facility] Baso Absolute 0.0 0.0 - 0.1 x10(3)/[facility] LABORATORY Immature Gran % 2.90 % [facility] Comment: Immature granulocytes(IG's)percentage and absolute count will include metamyelocytes, myelocytes, and promyelocytes. Blood smears from CBCs yielding IG's will be scanned manually for concordance. If this scan disagrees with the automated IG or if promyelocytes are noted, a manual differential will be performed. Immature Gran Absolute 0.29(H) 0.00 - 0.04 x10(3)/[facility] LABORATORY Blood specimen (specimen) 09/24/2016 9:56 AM EST 09/24/2016 10:04 AM EST Narrative Resulting Agency Comment Spec In Lab Alirio Esparza MD HEMATOLOGY ORDERABL ES [facility] [place] [address] * (ABNORMAL) Hemogram (09/24/2016 9:56 AM EST) White Blood Cell 10.1(H) 4.0 - 9.5 x10(3)/[facility] LABOR[facility] Red Blood Cell 2.87(L) 4.00 - 5.21 x10(6)/[facility] LAB[facility] Hemoglobin 9.4(L) 11.7 - 15.5 gm/dL [facility] Hematocrit 28.3(L) 35.7 - 45.8 % [facility] Mean Cell Volume 98.6(H) 82.6 - 94.4 fL [facility] Mean Cell Hemoglobin 32.8(H) 27.1 - 32.0 pg [facility] Mean Cell Hemoglobin Concentration 33.2 31.7 - 35.0 gm/dL [facility] Platelet 141(L) 145 - 357 x10(3)/[facility] LABORATORY RDW Standard Deviation 45.0 37.0 - 46.0 [facility] LABORATORY RDW coefficient of variation 12.6 11.5 - 14.1 % [facility] Mean Platelet Volume 9.4 7.6 - 12.9 [facility] LAB[facility]ORY NRBC% auto 1.1 % [facility] NRBC Absolute 0.110(H) 0.000 - 0.000 x10(3)/[facility] LAB[facility] Blood specimen (specimen) 09/24/2016 9:56 AM EST 09/24/2016 10:04 AM EST Narrative Resulting Agency Comment Spec In Lab Alirio Esparza MD HEMATOLOGY ORDERABL ES [facility] [place] [address] * (ABNORMAL) Basic Metabolic Panel (non-fasting) (09/24/2016 9:56 AM EST) Glucose 111 65 - 199 mg/dL [facility] Comment:Diabetes: >=200 mg/d L plus symptoms Blood Urea Nitrogen 23(H) 8 - 18 mg/dL [facility] Comment:result rechecked-ART Creatinine 0.89 0.70 - 1.20 mg/dL [facility] Comment: Please note that the pediatric reference intervals supplied above were not validated at [facility]. Results from pediatric patients should be interpreted in conjunction to the patient's age, height and muscle mass. Sodium 138 135 - 145 mmol/L [facility] [...] questions. Chloride 98 98 - 107 mmol/L [facility] Carbon Dioxide 26 22 - 31 mmol/L [facility] Anion Gap 14 5 - 15 mmol/L [facility] Calcium 9.1 8.5 - 10.5 mg/dL [facility] [...] the following links into your internet browser. [email or web address] Blood specimen (specimen) 09/24/2016 9:56 AM EST 09/24/2016 10:04 AM EST Narrative Resulting Agency Comment Spec In Lab Alirio Esparza MD CHEMISTRY ORDERABLE S [facility] [place] [address] * XR Chest PA & Lateral (Generic) [...] ORDERABLES * Potassium (09/23/2016 3:31 AM EST) [facility] Potassium 4.5 3.5 - 5.0 mmol/L [facility] [...] CHEMISTRY ORDERABLE S [facility] [place] [address] * POCT Glucose (09/22/2016 8:17 AM EST) [facility] Glucose, POC 131 65 - 199 mg/dL [facility] Comment: Supplemental ranges: <140 mg/dL before meals <180 mg/dL all other times of the day Blood specimen (specimen) 09/22/2016 8:17 AM EST 09/22/2016 8:17 AM EST Alirio Esparza MD POINT OF CARE TEST ORDERABLES Performing Organization Address [facility]/ZIP Co de Phone Number [facility] [place] [address] * POCT Glucose (09/22/2016 4:01 AM EST) Glucose, POC 135 65 - 199 mg/dL [facility] Comment: Supplemental ranges: <140 mg/dL before meals <180 mg/dL all other times of the day Blood specimen (specimen) 09/22/2016 4:01 AM EST 09/22/2016 4:01 AM EST Alirio Esparza MD POINT OF CARE TEST ORDERABLES Performing Organization Address [facility] Co de Phone Number [facility] [place] [address] * Scan, Peripheral Blood (09/22/2016 4:00 AM EST) Plat estimate Normal [facility] RBC Morphology Abnormal [facility] Macrocyte 1-5 /HPF [facility] Plat, Giant Less than 1 /HPF [facility] Blood specimen (specimen) 09/22/2016 4:00 AM EST 09/22/2016 4:34 AM EST Narrative Resulting Agency Comment Spec In Lab Alirio Esparza MD HEMATOLOGY ORDERABL ES Performing Organization Address [facility] Co de Phone Number [facility] [place] [address] * Electrolytes panel (09/22/2016 4:00 AM EST) Pathologist [facility] Sodium 145 135 - 145 mmol/L [facility] Potassium 4.4 3.5 - 5.0 mmol/L [facility] Comment: Please note: ??Patients with WBC >100,000 may have falsely elevated Potassium levels. ??For accurate Potassium quantification in these patients send serum separator tube (gold top) for subsequent determinations. ??Contact the Clinical Chemistry Laboratory if there are any questions. Chloride 107 98 - 107 mmol/L [facility] Carbon Dioxide 24 22 - 31 mmol/L [facility] Anion Gap 14 5 - 15 mmol/L [facility] Blood specimen (specimen) Venous Draw / Unknown 09/22/2016 4:00 AM EST 09/22/2016 4:34 AM EST Narrative Resulting Agency Comment Spec In Lab Alirio Esparza MD CHEMISTRY ORDERABLE S Performing Organization Address City/State/[facility] Co de Phone Number [facility] [place] [address] * (ABNORMAL) Differential, Automated (09/22/2016 4:00 AM EST) Neutrophil % 70.9 % [facility] Neutrophil Absolute 5.33 1.70 - 6.10 x10(3)/mc L [facility] Lymph % 9.1 % [facility] Lymphocytes Abs 0.7(L) 0.9 - 3.2 x10(3)/mc L [facility] Monocyte % 18.0 % [facility] Monocyte Abs 1.4(H) 0.3 - 0.9 x10(3)/mc L [facility] Eos % 0.0 % [facility] Eosinophils Abs 0.0 0.0 - 0.4 x10(3)/mc L [facility] Basophil % 0.1 % [facility] Baso Absolute 0.0 0.0 - 0.1 x10(3)/mc L [facility] Immature Gran % 1.90 % [facility] Comment: Immature granulocytes(IG's)percentage and absolute count will include metamyelocytes, myelocytes, and promyelocytes. Blood smears from CBCs yielding IG's will be scanned manually for concordance. If this scan disagrees with the automated IG or if promyelocytes are noted, a manual differential will be performed. Immature Gran Absolute 0.14(H) 0.00 - 0.04 x10(3)/mc L [facility] Blood specimen (specimen) 09/22/2016 4:00 AM EST 09/22/2016 4:34 AM EST Narrative Resulting Agency Comment Spec In Lab Alirio Esparza MD HEMATOLOGY ORDERABL ES [facility] [place] [address] * (ABNORMAL) Hemogram (09/22/2016 4:00 AM EST) White Blood Cell 7.5 4.0 - 9.5 x10(3)/mc L [facility] Red Blood Cell 2.93(L) 4.00 - 5.21 x10(6)/mc L [facility] Hemoglobin 9.2(L) 11.7 - 15.5 gm/dL [facility] Hematocrit 28.0(L) 35.7 - 45.8 % [facility] Mean Cell Volume 95.6(H) 82.6 - 94.4 fL [facility] Mean Cell Hemoglobin 31.4 27.1 - 32.0 pg [facility] Mean Cell Hemoglobin Concentration 32.9 31.7 - 35.0 gm/dL [facility] Platelet 161 145 - 357 x10(3)/mc L [facility] RDW Standard Deviation 44.0 37.0 - 46.0 [facility] RDW coefficient of variation 12.6 11.5 - 14.1 % [facility] Mean Platelet Volume 9.3 7.6 - 12.9 fL [facility] NRBC% auto 0.3 % [facility] NRBC Absolute 0.020(H) 0.000 - 0.000 x10(3)/mc L [facility] Blood specimen (specimen) 09/22/2016 4:00 AM EST 09/22/2016 4:34 AM EST Narrative Resulting Agency Comment Spec In Lab Alirio Esparza MD HEMATOLOGY ORDERABL ES Performing Organization Address City/[facility]/ZIP Co de Phone Number [facility] [place] [address] * (ABNORMAL) Cardiac Enzymes (09/22/2016 4:00 AM EST) Troponin-T 0.13(H) <=0.03 ng/mL [facility] Comment: 0.03 ng/mL: Represents [...] consensus document of the Joint Society of Cardiology/[place] College [employer] Cardiology Committee for the redefinition of myocardial infarction. ??Journal of the [place] College of Cardiology 2000; 36: 959-969] Creatine Kinase 338(H) 0 - 160 unit/L [facility] Blood specimen (specimen) 09/22/2016 4:00 AM EST 09/22/2016 4:34 AM EST Narrative Resulting Agency Comment Spec In Lab Alirio Esparza MD CHEMISTRY ORDERABLE S Performing Organization Address City/[facility]/ZIP Co de Phone Number [facility] [place] [address] * (ABNORMAL) Glucose, fasting (09/22/2016 4:00 AM EST) Glucose Fasting 137(H) 65 - 99 mg/dL [facility] Comment: ?Fasting* Glucose Interpretive [...] of Diabetes Mellitus, Position Statement from the [place] [employer] Association. ??Diabetes Care, Volume 33, Supplement 1, Aug 2009 Blood specimen (specimen) 09/22/2016 4:00 AM EST 09/22/2016 4:34 AM EST Narrative Resulting Agency Comment Spec In Lab Alirio Esparza MD CHEMISTRY ORDERABLE S [facility] [place] [address] * (ABNORMAL) Creatinine (09/22/2016 4:00 AM EST) [facility] Creatinine 0.69(L) 0.70 - 1.20 mg/dL [facility] Comment: Please note that the pediatric reference intervals supplied above were not validated at [facility]. Results from [...] the following links into your internet browser. [email or web address] Blood specimen (specimen) 09/22/2016 4:00 AM EST 09/22/2016 4:34 AM EST Narrative Resulting Agency Comment Spec In Lab Alirio Esparza MD CHEMISTRY ORDERABLE S Performing Organization Address [facility] Co de Phone Number [facility] [place] [address] * BUN (09/22/2016 4:00 AM EST) Blood Urea Nitrogen 10 8 - 18 mg/dL [facility] Blood specimen (specimen) 09/22/2016 4:00 AM EST 09/22/2016 4:34 AM EST Narrative Resulting Agency Comment Spec In Lab Alirio Esparza MD CHEMISTRY ORDERABLE S Performing Organization Address [facility] de Phone Number [facility] [place] [address] * POCT Glucose (09/21/2016 9:59 PM EST) Glucose, POC 146 65 - 199 mg/dL [facility] Comment: Supplemental ranges: <140 mg/dL before meals <180 mg/dL all other times of the day Blood specimen (specimen) 09/21/2016 9:59 PM EST 09/21/2016 9:59 PM EST Alirio Esparza MD POINT OF CARE TEST ORDERABLES Performing Organization Address [facility] Co de Phone Number [facility] [place] [address] * POCT Glucose (09/21/2016 7:26 PM EST) Glucose, POC 152 65 - 199 mg/dL [facility] Comment: Supplemental ranges: <140 mg/dL before meals <180 mg/dL all other times of the day Blood specimen (specimen) 09/21/2016 7:26 PM EST 09/21/2016 7:26 PM EST Alirio Esparza MD POINT OF CARE TEST ORDERABLES Performing Organization Address City/[facility]/ZIP Co de Phone Number [facility] [place] [address] * POCT Glucose (09/21/2016 6:00 PM EST) Glucose, POC 146 65 - 199 mg/dL [facility] Comment: Supplemental ranges: <140 mg/dL before meals <180 mg/dL all other times of the day Blood specimen (specimen) 09/21/2016 6:00 PM EST 09/21/2016 6:00 PM EST Alirio Esparza MD POINT OF CARE TEST ORDERABLES Performing Organization Address [facility] Co de Phone Number [facility] [place] [address] * (ABNORMAL) BLOOD GAS 2 ARTERIAL (09/21/2016 4:42 PM EST) [facility] Signature pH, Arterial 7.35(L) 7.35 - 7.45 [facility] PCO2, Arterial 48(H) 35 - 45 mmHg [facility] PO2, Arterial 108(H) 85 - 104 mmHg [facility] Bicarbonate, Arterial 26.0 20.0 - 26.0 mmol/L [facility] Base Excess, Arterial 0.5 -3.0 - 3.0 mmol/L [facility] Hgb Blood Gas 10.4(L) 11.7 - 15.5 gm/dL [facility] Oxyhemoglobin, Arterial 96.2 94.0 - 97.0 % [facility] Carboxyhemoglob in, Arterial 0.0 % [facility] Comment: Nonsmokers: 0.5-1.5% COHB Smokers: Variable, but usually less than 10% Toxic: 20-30% COHB Lethal: Greater than 60% COHB Methemoglobin, Arterial 0.7 <=1.5 % [facility] Na Whole Blood 139 135 - 145 mmol/L [facility] Whole Blood 106 98 - 107 mmol/L [facility] Gluc Whole Bld 147 65 - 199 mg/dL [facility] Comment:Diabetes: >=200 mg/d L plus symptoms. Lactate WB 1.2 0.5 - 2.2 mmol/L [facility] FIO2 Art 40 % [facility] PF Ratio Art 270 [facility] Blood specimen (specimen) 09/21/2016 4:42 PM EST 09/21/2016 4:42 PM EST Alirio Esparza MD POINT OF CARE TEST ORDERABLES [facility] [place] [address] * POCT Glucose (09/21/2016 4:07 PM EST) Glucose, POC 150 65 - 199 mg/dL [facility] Comment: Supplemental ranges: <140 mg/dL before meals <180 mg/dL all other times of the day Blood specimen (specimen) 09/21/2016 4:07 PM EST 09/21/2016 4:07 PM EST Alirio Esparza MD POINT OF CARE TEST ORDERABLES [facility] [place] [address] * (ABNORMAL) Hemoglobin (09/21/2016 4:05 PM EST) [facility] Hemoglobin 9.9(L) 11.7 - 15.5 gm/dL [facility] Blood specimen (specimen) 09/21/2016 4:05 PM EST 09/21/2016 4:20 PM EST Narrative Resulting Agency Comment Spec In Lab Alirio Esparza MD HEMATOLOGY ORDERABL ES Performing Organization Address [facility] Co de Phone Number [facility] [place] [address] * Potassium (09/21/2016 4:05 PM EST) [facility] Potassium 4.6 3.5 - 5.0 mmol/L [facility] [...] CHEMISTRY ORDERABLE S Performing Organization Address [facility] Co de Phone Number [facility] [place] [address] * POCT Glucose (09/21/2016 2:52 PM EST) [facility] Glucose, POC 117 65 - 199 mg/dL [facility] Comment: Supplemental ranges: <140 mg/dL before meals <180 mg/dL all other times of the day Blood specimen (specimen) 09/21/2016 2:52 PM EST 09/21/2016 2:52 PM EST Alirio Esparza MD POINT OF CARE TEST ORDERABLES Performing Organization Address [facility] Co de Phone Number [facility] [place] [address] * POCT Glucose (09/21/2016 1:51 PM EST) Glucose, POC 108 65 - 199 mg/dL [facility] Comment: Supplemental ranges: <140 mg/dL before meals <180 mg/dL all other times of the day Blood specimen (specimen) 09/21/2016 1:51 PM EST 09/21/2016 1:51 PM EST Alirio Esparza MD POINT OF CARE TEST ORDERABLES [facility] [place] [address] * POCT Glucose (09/21/2016 12:54 PM EST) Glucose, POC 128 65 - 199 mg/dL [facility] Comment: Supplemental ranges: <140 mg/dL before meals <180 mg/dL all other times of the day Blood specimen (specimen) 09/21/2016 12:54 PM EST 09/21/2016 12:54 PM EST Alirio Esparza MD POINT OF CARE TEST ORDERABLES Performing Organization Address City/[facility]/ZIP Co de Phone Number [facility] [place] [address] * EKG 12 Lead (09/21/2016 12:26 PM EST) Pathologist [facility] Ventricular rate 87 BPM MUSE SYSTEM Atrial Rate 87 BPM MUSE SYSTEM P-R Interval 256 ms MUSE SYSTEM QRS Duration 90 ms MUSE SYSTEM Q-T Interval 406 ms MUSE SYSTEM QTC Calculated (Bezet) 488 ms MUSE SYSTEM Calculated P [place] 24 degrees MUSE SYSTEM Calculated R [place] 21 degrees MUSE SYSTEM Calculated T [place] -5 degrees MUSE SYSTEM INTERPRETATION Sinus rhythm [...] course of the esophagus and below the [id number]. There is a right IJ PA catheter [...] the course of theesophagus and below the [id number]. There is a right IJ PA catheter [...] EST) pH, Arterial 7.41 7.35 - 7.45 [facility] PCO2, Arterial 42 35 - 45 mmHg [facility] PO2, Arterial 356(H) 85 - 104 mmHg [facility] Bicarbonate, Arterial 26.2(H) 20.0 - 26.0 mmol/L [facility] Base Excess, Arterial 1.6 -3.0 - 3.0 mmol/L [facility] Hgb Blood Gas 10.7(L) 11.7 - 15.5 gm/dL [facility] Oxyhemoglobin, Arterial 98.1(H) 94.0 - 97.0 % [facility] Carboxyhemoglob in, Arterial 0.3 % [facility] Comment: Nonsmokers: 0.5-1.5% COHB Smokers: Variable, but usually less than 10% Toxic: 20-30% COHB Lethal: Greater than 60% COHB Methemoglobin, Arterial 0.8 <=1.5 % [facility] Na Whole Blood 140 135 - 145 mmol/L [facility] K Whole Blood 3.8 3.5 - 5.0 mmol/L [facility] Comment: Please note: Patients with WBC >100,000 may have falsely elevated Potassium levels. Contact the Clinical Chemistry Laboratory if there are any questions. ICa Whole Blood 1.15(L) 1.15 - 1.33 mmol/L [facility] Comment: Note: ??Total bilirubin higher than 20 mg/dL may lead to falsely low ionized calcium. CL Whole Blood 106 98 - 107 mmol/L [facility] Gluc Whole Bld 135 65 - 199 mg/dL [facility] Comment:Diabetes: >=200 mg/d L plus symptoms. Lactate WB 2.2 0.5 - 2.2 mmol/L [facility] FIO2 Art 100 % [facility] PF Ratio Art 356 [facility] Blood specimen (specimen) 09/21/2016 12:20 PM EST 09/21/2016 12:20 PM EST Alirio Esparza MD POINT OF CARE TEST ORDERABLES [facility] [place] [address] * (ABNORMAL) BLOOD GAS 2 ARTERIAL (09/21/2016 10:54 AM EST) pH, Arterial 7.43 7.35 - 7.45 [facility] PCO2, Arterial 40 35 - 45 mmHg [facility] PO2, Arterial 297(H) 85 - 104 mmHg [facility] Bicarbonate, Arterial 26.0 20.0 - 26.0 mmol/L [facility] Base Excess, Arterial 1.6 -3.0 - 3.0 mmol/L [facility] Hgb Blood Gas 8.6(L) 11.7 - 15.5 gm/dL [facility] Oxyhemoglobin, Arterial 98.6(H) 94.0 - 97.0 % [facility] Carboxyhemoglob in, Arterial 0.5 % [facility] Comment: Nonsmokers: 0.5-1.5% COHB Smokers: Variable, but usually less than 10% Toxic: 20-30% COHB Lethal: Greater than 60% COHB Methemoglobin, Arterial 0.3 <=1.5 % [facility] Na Whole Blood 134(L) 135 - 145 mmol/L [facility] K Whole Blood 4.5 3.5 - 5.0 mmol/L [facility] Comment: Please note: Patients with WBC >100,000 may have falsely elevated Potassium levels. Contact the Clinical Chemistry Laboratory if there are any questions. ICa Whole Blood 1.16 1.15 - 1.33 mmol/L [facility] Comment: Note: ??Total bilirubin higher than 20 mg/dL may lead to falsely low ionized calcium. CL Whole Blood 104 98 - 107 mmol/L [facility] Gluc Whole Bld 240(H) 65 - 199 mg/dL [facility] Comment:Diabetes: >=200 mg/d L plus symptoms. Lactate WB 2.4(H) 0.5 - 2.2 mmol/L [facility] FIO2 Art 95 % [facility] Flow Art 0.7 LPM [facility] PF Ratio Art 313 [facility] Temp Art 36.7 Celsius [facility] Blood specimen (specimen) 09/21/2016 10:54 AM EST 09/21/2016 10:54 AM EST Alirio Esparza MD POINT OF CARE TEST ORDERABLES Performing Organization Address [facility] Co de Phone Number [facility] [place] [address] * Thrombin time (09/21/2016 10:50 AM EST) Thrombin Time 19 15 - 20 sec [facility] Comment: A prolongation in [...] S Performing Organization Address [facility] Co de Phone Number [facility] [place] [address] * Fibrinogen (09/21/2016 10:50 AM EST) Fibrinogen 228 180 - 510 mg/dL [facility] Comment: Called by: JONNATHAN, Read back by: MICHELLE ALEJANDRE_, Date/Time:09/21/16 11:11. A fibrinogen level >100 mg/dL is adequate for hemostasis in most patients without underlying bleeding disorders. Blood specimen (specimen) 09/21/2016 10:50 AM EST 09/21/2016 10:56 AM EST Narrative Resulting Agency Comment Spec In Lab Luis Enrique Quarles MD HEMATOLOGY ORDERABLE S Performing Organization Address [facility] Co de Phone Number [facility] [place] [address] * APTT (09/21/2016 10:50 AM EST) Partial Thromboplastin Time 32 25 - 35 sec [facility] Comment: The recommended therapeutic range for full dose, unfractionated heparin at [facility] is 80 [...] MD HEMATOLOGY ORDERABLE S Performing Organization Address [facility] de Phone Number [facility] [place] [address] * (ABNORMAL) Prothrombin Time (09/21/2016 10:50 AM EST) Prothrombin Time 18.7(H) 12.0 - 15.0 sec [facility] Comment: An INR <2.0 [...] International Normalization Ratio 1.5(H) 0.9 - 1.1 [facility] Blood specimen (specimen) 09/21/2016 10:50 AM EST 09/21/2016 10:56 AM EST Narrative Resulting Agency Comment Spec In Lab Luis Enrique Quarles MD HEMATOLOGY ORDERABLE S Performing Organization Address [facility] Co de Phone Number [facility] [place] [address] * (ABNORMAL) Hemogram (09/21/2016 10:50 AM EST) White Blood Cell 14.7(H) 4.0 - 9.5 x10(3)/mc L [facility] Red Blood Cell 2.40(L) 4.00 - 5.21 x10(6)/mc L [facility] Hemoglobin 7.9(L) 11.7 - 15.5 gm/dL [facility] Hematocrit 23.2(L) 35.7 - 45.8 % [facility] Comment: This result has been called to MICHELLE GRIGSBY by ASHU MORENO on 09 21 2016 at 1102, and has been read back. Mean Cell Volume 96.7(H) 82.6 - 94.4 fL [facility] Mean Cell Hemoglobin 32.9(H) 27.1 - 32.0 pg [facility] Mean Cell Hemoglobin Concentration 34.1 31.7 - 35.0 gm/dL [facility] Platelet 117(L) 145 - 357 x10(3)/mc L [facility] RDW Standard Deviation 42.6 37.0 - 46.0 fL [facility] RDW coefficient of variation 12.1 11.5 - 14.1 % [facility] Mean Platelet Volume 9.2 7.6 - 12.9 fL [facility] NRBC% auto 0.1 % [facility] NRBC Absolute 0.020(H) 0.000 - 0.000 x10(3)/mc L [facility] Blood specimen (specimen) 09/21/2016 10:50 AM EST 09/21/2016 10:56 AM EST Narrative Resulting Agency Comment Spec In Lab Luis Enrique Quarles MD HEMATOLOGY ORDERABLE S [facility] [place] [address] * Prepare Platelets, Apheresis (09/21/2016 10:30 AM EST) Dispensed? Yes [facility] Blood specimen (specimen) 09/21/2016 10:30 AM EST 09/21/2016 10:28 AM EST Alirio Esparza MD BLOOD BANK PRODUCT ORDERABLES [facility] [place] [address] * (ABNORMAL) BLOOD GAS 2 ARTERIAL (09/21/2016 10:05 AM EST) pH, Arterial 7.33(L) 7.35 - 7.45 [facility] PCO2, Arterial 54(Critic al) 35 - 45 mmHg [facility] Comment:Noted by instrumentation designer. PO2, Arterial 218(H) 85 - 104 mmHg [facility] Bicarbonate, Arterial 27.9(H) 20.0 - 26.0 mmol/L [facility] Base Excess, Arterial 2.0 -3.0 - 3.0 mmol/L [facility] Hgb Blood Gas 8.6(L) 11.7 - 15.5 gm/dL [facility] Oxyhemoglobin, Arterial 98.4(H) 94.0 - 97.0 % [facility] Carboxyhemoglo bin, Arterial 0.5 % [facility] Comment: Nonsmokers: 0.5-1.5% COHB Smokers: Variable, but usually less than 10% Toxic: 20-30% COHB Lethal: Greater than 60% COHB Methemoglobin, Arterial 0.3 <=1.5 % [facility] Na Whole Blood 129(L) 135 - 145 mmol/L [facility] K Whole Blood 6.2(Criti gabrielle) 3.5 - 5.0 mmol/L [facility] Comment: Noted by instrumentation designer. Please note: Patients with WBC >100,000 may have falsely elevated Potassium levels. Contact the Clinical Chemistry Laboratory if there are any questions. ICa Whole Blood 0.95(L) 1.15 - 1.33 mmol/L [facility] Comment: Note: ??Total bilirubin higher than 20 mg/dL may lead to falsely low ionized calcium. CL Whole Blood 100 98 - 107 mmol/L [facility] Gluc Whole Bld 289(H) 65 - 199 mg/dL [facility] Comment:Diabetes: >=200 mg/d L plus symptoms. Lactate WB 2.2 0.5 - 2.2 mmol/L [facility] Temp Art 37.0 Celsius [facility] Blood specimen (specimen) 09/21/2016 10:05 AM EST 09/21/2016 10:05 AM EST Alirio Esparza MD POINT OF CARE TEST ORDERABLES [facility] [place] [address] * (ABNORMAL) BLOOD GAS 2 ARTERIAL (09/21/2016 9:44 AM EST) pH, Arterial 7.22(Criti gabrielle) 7.35 - 7.45 [facility] Comment:Noted by instrumentation designer. PCO2, Arterial 70(Critica l) 35 - 45 mmHg [facility] Comment:Noted by instrumentation designer. PO2, Arterial 224(H) 85 - 104 mmHg [facility] Bicarbonate, Arterial 27.8(H) 20.0 - 26.0 mmol/L [facility] Base Excess, Arterial 0.0 -3.0 - 3.0 mmol/L [facility] Hgb Blood Gas 8.7(L) 11.7 - 15.5 gm/dL [facility] Oxyhemoglobin, Arterial 98.5(H) 94.0 - 97.0 % [facility] Carboxyhemoglob in, Arterial 0.6 % [facility] Comment: Nonsmokers: 0.5-1.5% COHB Smokers: Variable, but usually less than 10% Toxic: 20-30% COHB Lethal: Greater than 60% COHB Methemoglobin, Arterial 0.3 <=1.5 % [facility] Na Whole Blood 131(L) 135 - 145 mmol/L [facility] K Whole Blood 5.9(H) 3.5 - 5.0 mmol/L [facility] Comment: Please note: Patients with WBC >100,000 may have falsely elevated Potassium levels. Contact the Clinical Chemistry Laboratory if there are any questions. ICa Whole Blood 1.00(L) 1.15 - 1.33 mmol/L [facility] Comment: Note: ??Total bilirubin higher than 20 mg/dL may lead to falsely low ionized calcium. CL Whole Blood 101 98 - 107 mmol/L [facility] Gluc Whole Bld 227(H) 65 - 199 mg/dL [facility] Comment:Diabetes: >=200 mg/d L plus symptoms. Lactate WB 2.1 0.5 - 2.2 mmol/L [facility] Blood specimen (specimen) 09/21/2016 9:44 AM EST 09/21/2016 9:44 AM EST Alirio Esparza MD POINT OF CARE TEST ORDERABLES Performing Organization Address [facility] Co de Phone Number [facility] [place] [address] * (ABNORMAL) Hemoglobin (09/21/2016 9:42 AM EST) Hemoglobin 7.2(L) 11.7 - 15.5 gm/dL [facility] Blood specimen (specimen) 09/21/2016 9:42 AM EST 09/21/2016 9:51 AM EST Narrative Resulting Agency Comment Spec In Lab Alirio Esparza MD HEMATOLOGY ORDERABL ES Performing Organization Address [facility] Co de Phone Number [facility] [place] [address] * Platelet count (09/21/2016 9:42 AM EST) Platelet 159 145 - 357 x10(3)/mc L [facility] LABORATORY Immature Plt % 1.6 0.0 - 7.4 % [facility] Comment: Limitation of the Immature Platelet Fraction (IPF)-May be less reliable when the platelet count is less than 32g243/uL due to statistical imprecision. The IPF value [...] in a decreased state of production. References: [employer] The Clinical Value of the Immature Platelet Fraction (IPF) in Cell Recovery Document Number [id number] 12/2010 [employer] The Role of the Immature Platelet Fraction (IPF) in the Differential Diagnosis of Thrombocytopenia, Document MKT-[id number] V05/07/15 P0514 Blood specimen (specimen) 09/21/2016 9:42 AM EST 09/21/2016 9:51 AM EST Narrative Resulting Agency Comment Spec In Lab Alirio Esparza MD HEMATOLOGY ORDERABL ES [facility] [place] [address] * (ABNORMAL) Hematocrit (09/21/2016 9:42 AM EST) Hematocrit 21.6(L) 35.7 - 45.8 % [facility] Comment: This result has been called to MICHELLE ALEJANDRE by Serjio Frazier on 09 21 2016 at 0957, and has been read back. Blood specimen (specimen) 09/21/2016 9:42 AM EST 09/21/2016 9:51 AM EST Narrative Resulting Agency Comment Spec In Lab Alirio Esparza MD HEMATOLOGY ORDERABL ES Performing Organization Address [facility] Co de Phone Number [facility] [place] [address] * Fibrinogen (09/21/2016 9:42 AM EST) Fibrinogen 219 180 - 510 mg/dL [facility] Comment: Called by: JONNATHAN, Read back by: MICHELLE ALEJANDRE_, Date/Time:09/21/16 10:03_. A fibrinogen level >100 mg/dL is adequate for hemostasis in most patients without underlying bleeding disorders. Blood specimen (specimen) 09/21/2016 9:42 AM EST 09/21/2016 9:51 AM EST Narrative Resulting Agency Comment Spec In Lab Alirio Esparza MD HEMATOLOGY ORDERABL ES Performing Organization Address [facility] Co de Phone Number [facility] [place] [address] * (ABNORMAL) BLOOD GAS 2 ARTERIAL (09/21/2016 9:10 AM EST) pH, Arterial 7.36 7.35 - 7.45 [facility] PCO2, Arterial 48(H) 35 - 45 mmHg [facility] PO2, Arterial 295(H) 85 - 104 mmHg [facility] Bicarbonate, Arterial 26.0 20.0 - 26.0 mmol/L [facility] Base Excess, Arterial 0.5 -3.0 - 3.0 mmol/L [facility] Hgb Blood Gas 8.0(L) 11.7 - 15.5 gm/dL [facility] Oxyhemoglobin, Arterial 98.3(H) 94.0 - 97.0 % [facility] Carboxyhemoglob in, Arterial 1.0 % [facility] Comment: Nonsmokers: 0.5-1.5% COHB Smokers: Variable, but usually less than 10% Toxic: 20-30% COHB Lethal: Greater than 60% COHB Methemoglobin, Arterial 0.3 <=1.5 % [facility] Na Whole Blood 135 135 - 145 mmol/L [facility] K Whole Blood 5.4(H) 3.5 - 5.0 mmol/L [facility] Comment: Please note: Patients with WBC >100,000 may have falsely elevated Potassium levels. Contact the Clinical Chemistry Laboratory if there are any questions. ICa Whole Blood 0.93(L) 1.15 - 1.33 mmol/L [facility] Comment: Note: ??Total bilirubin higher than 20 mg/dL may lead to falsely low ionized calcium. CL Whole Blood 102 98 - 107 mmol/L [facility] Gluc Whole Bld 195 65 - 199 mg/dL [facility] Comment:Diabetes: >=200 mg/d L plus symptoms. Lactate WB 1.8 0.5 - 2.2 mmol/L [facility] Temp Art 37.0 Celsius [facility] Blood specimen (specimen) 09/21/2016 9:10 AM EST 09/21/2016 9:10 AM EST Alirio Esparza MD POINT OF CARE TEST ORDERABLES Performing Organization Address City/State/[facility] Co de Phone Number [facility] [place] [address] * Surgical Pathology Report (09/21/2016 9:09 AM EST) Final Diagnosis [id number] ?Location: 3T The signing pathologist has (i) [...] ?. (R1) ??ADELITA 09/24/2016 9:32 AM EST [facility] AORTIC STRUCTURE / Unknown 09/21/2016 9:09 AM EST 09/21/2016 9:09 AM EST Alirio Esparza MD PATHOLOGY/CYTOLOGY ORDERABLES Performing Organization Address [facility] Co de Phone Number [facility] [place] [address] * Specimen to Pathology (surgical or derm) (09/21/2016 9:09 AM EST) AP Specimen 09/21/2016 9:09 AM EST 09/21/2016 9:09 AM EST Narrative [facility] - 09/21/2016 9:09 AM EST Specimen requisition ordered. ??Separate Pathology report to follow Alirio Esparza MD PATHOLOGY/CYTOLOGY ORDERABLES Performing Organization Address [facility] Co de Phone Number [facility] [place] [address] * (ABNORMAL) BLOOD GAS 2 ARTERIAL (09/21/2016 8:50 AM EST) pH, Arterial 7.41 7.35 - 7.45 [facility] PCO2, Arterial 33(L) 35 - 45 mmHg [facility] PO2, Arterial 348(H) 85 - 104 mmHg [facility] Bicarbonate, Arterial 20.6 20.0 - 26.0 mmol/L [facility] Base Excess, Arterial -4.1(L) -3.0 - 3.0 mmol/L [facility] Hgb Blood Gas 9.5(L) 11.7 - 15.5 gm/dL [facility] Oxyhemoglobin, Arterial 98.8(H) 94.0 - 97.0 % [facility] Carboxyhemoglob in, Arterial 0.3 % [facility] Comment: Nonsmokers: 0.5-1.5% COHB Smokers: Variable, but usually less than 10% Toxic: 20-30% COHB Lethal: Greater than 60% COHB Methemoglobin, Arterial 0.3 <=1.5 % [facility] Na Whole Blood 137 135 - 145 mmol/L [facility] K Whole Blood 4.0 3.5 - 5.0 mmol/L [facility] Whole Blood 105 98 - 107 mmol/L [facility] Gluc Whole Bld 93 65 - 199 mg/dL [facility] Comment:Diabetes: >=200 mg/d L plus symptoms. Lactate WB 1.0 0.5 - 2.2 mmol/L [facility] Blood specimen (specimen) 09/21/2016 8:50 AM EST 09/21/2016 8:50 AM EST Alirio Esparza MD POINT OF CARE TEST ORDERABLES [facility] [place] [address] * (ABNORMAL) BLOOD GAS 2 ARTERIAL (09/21/2016 8:18 AM EST) pH, Arterial 7.42 7.35 - 7.45 [facility] PCO2, Arterial 36 35 - 45 mmHg [facility] PO2, Arterial 283(H) 85 - 104 mmHg [facility] Bicarbonate, Arterial 22.8 20.0 - 26.0 mmol/L [facility] Base Excess, Arterial -2.0 -3.0 - 3.0 mmol/L [facility] Hgb Blood Gas 12.6 11.7 - 15.5 gm/dL [facility] Oxyhemoglobin, Arterial 99.0(H) 94.0 - 97.0 % [facility] Carboxyhemoglob in, Arterial 0.6 % [facility] Comment: Nonsmokers: 0.5-1.5% COHB Smokers: Variable, but usually less than 10% Toxic: 20-30% COHB Lethal: Greater than 60% COHB Methemoglobin, Arterial 0.0 <=1.5 % [facility] Na Whole Blood 144 135 - 145 mmol/L [facility] K Whole Blood 4.0 3.5 - 5.0 mmol/L [facility] Comment: Please note: Patients with WBC >100,000 may have falsely elevated Potassium levels. Contact the Clinical Chemistry Laboratory if there are any questions. ICa Whole Blood 1.22 1.15 - 1.33 mmol/L [facility] Comment: Note: ??Total bilirubin higher than 20 mg/dL may lead to falsely low ionized calcium. CL Whole Blood 106 98 - 107 mmol/L [facility] Gluc Whole Bld 102 65 - 199 mg/dL [facility] Comment:Diabetes: >=200 mg/d L plus symptoms. Lactate WB 1.2 0.5 - 2.2 mmol/L [facility] FIO2 Art 95 % [facility] Flow Art 1.1 LPM [facility] PF Ratio Art 298 [facility] Temp Art 35.6 Celsius [facility] Blood specimen (specimen) 09/21/2016 8:18 AM EST 09/21/2016 8:18 AM EST Alirio Esparza MD POINT OF CARE TEST ORDERABLES [facility] [place] [address] * Prepare RBC (09/21/2016 7:05 AM EST) Dispensed? Yes [facility] Blood specimen (specimen) 09/21/2016 7:05 AM EST 09/21/2016 7:02 AM EST Alirio Esparza MD BLOOD BANK PRODUCT ORDERABLES Performing Organization Address City/[facility]/ZIP Co de Phone Number [facility] [place] [address] * POCT Glucose (09/21/2016 6:42 AM EST) Glucose, POC 104 65 - 199 mg/dL [facility] Comment: Supplemental ranges: <140 mg/dL before meals <180 mg/dL all other times of the day Blood specimen (specimen) 09/21/2016 6:42 AM EST 09/21/2016 6:42 AM EST Alirio Esparza MD POINT OF CARE TEST ORDERABLES Performing Organization Address City/[facility] Co de Phone Number [facility] [place] [address] documented in this encounter Visit Diagnoses Not [...] dose on Wed09/21/16 at 1230, Until Discontinued, [place] teeth, Routine Given 09/25/2016 9:40 AM EST [...] OPEN, Routine 1708 (Given - Provider: Federico Apple, VALDO) 1622 (Given - Provider: Chaya Hill RN) chlorhexidine (PERIDEX) 0.12 % oral solution 15 mL 15 mL, Oral, EVERY 12 HOURS SCHEDULED (2 times per day), First dose on Wed09/21/16 at 1230, Until Discontinued, [place] teeth, Routine 0900 (Not Given - Provider: [...] VALDO)1708 (Given - Provider: Federico Apple RN) 0826 (Given - Provider: Marek Barnes VALDO)162 (Given - Provider: Chaya Hill RN) [...] 0829 (Given - Provider: Marek Barnes RN) 0941 [...] Routine documented in this encounter Care Teams Shallot Cleaner Relationship Specialty Start Date End Date Deborah Quiroga, INSTRUMENT REPAIRER HELPER PCP - General Family Medicine 03/24/16 02/04/23 documented as of this encounter
--- OUTSIDE RECORDS SUMMARY | 2024-05-25 14:13 | XMS_ITS | Encounter Summary ---
Author Organization [facility] Address [facility] [place] [address] Care Team Providers Care Commercial Attache Name Role Phone Ashley Quirogan Sylvia ANURAG Primary Care Provider [phone] Encounter Details Date Type Department Care Team (Latest Contact Info) Description 08/18/2016 4:40 PM EST [place] [phone] Aortic valve stenosis, unspecified etiology [...] 10:00 AM EDT Office Visit Rheumatology at [place] [phone] Magdalena Peralta MD [facility] [address] 06/05/2024 2:00 PM EST Hospital Encounter [place] [phone] Markel Borjas MD [facility] [place] [address] 06/05/2024 2:00 PM EST - 06/05/2024 3:00 PM EST Surgery [place] [address] Markel Borjas MD [facility] [address] [place] [address] (OSC MSURG) BONE MARROW BIOPSY AND ASPIRATION; DIAGNOSTIC (WRVU 1.44) 06/23/2024 2:00 PM EST Office Visit [place]ology [place] [phone] Markel Borjas MD [facility] [address] [place] [address] 03/01/2025 4:15 PM EDT Office Visit Dermatology at [place] [address] [place] [phone] Marek Bonilla MD [address], [place] [address] Scheduled Procedures Name Priority Associated Diagnoses Date/Ti me (OSC MSURG) BONE MARROW BIOPSY AND ASPIRATION; DIAGNOSTIC (WRVU 1.44) Anemia, in pt with longstanding neutropenia 06/05/2024 2:00 PM EST documented as of this encounter Procedures Procedure Name Priority Date/Time Associated Diagnosis Comments ABORH RECHECK STATUS Routine 08/18/2016 4:50 PM EST TYPE AND SCREEN, SDP (FUTURE SURGERY, [facility] SAME DAY PROGRAM ONLY) Routine 08/18/2016 4:50 [...] 4:50 PM EST) ABORH Type Recheck Completed [facility] Blood specimen (specimen) 08/18/2016 4:50 PM EST 08/18/2016 5:27 PM EST Narrative Resulting Agency Comment Spec In Lab Alirio Esparza MD BLOOD BANK LAB ORDSylvia ORTEGAROMERO Performing Organization Address City/[facility]/ZIP Co de Phone Number [facility] [place] [address] * Antibody screen (08/18/2016 4:50 PM EST) Ab Screen Interp Negative [facility] Expires at [id number] on: 09/24/2016 [facility] Comment: Corrected from 09/17/16 12:00 [Unknown] on 09/09/16 02:32 by Shireen Treviño Blood specimen (specimen) 08/18/2016 4:50 PM EST 08/18/2016 5:11 PM EST Narrative Resulting Agency Comment Spec In Lab Alirio Esparza MD BLOOD BANK LAB ORDSylvia ORTEGAROMERO Performing Organization Address City/[facility]/ZIP Co de Phone Number [facility] [place] [address] * ABO/Rh Typing (08/18/2016 4:50 PM EST) ABORH Type B Pos [facility] Blood specimen (specimen) 08/18/2016 4:50 PM EST 08/18/2016 5:11 PM EST Narrative Resulting Agency Comment Spec In Lab Alirio Esparza MD BLOOD BANK LAB ORDSylvia ORTEGAROMERO Performing Organization Address City/[facility]/ZIP Co de Phone Number [facility] [place] [address] * Basic Metabolic Panel (non-fasting) (08/18/2016 4:50 PM EST) Glucose 82 65 - 199 mg/dL [facility] Comment:Diabetes: >=200 mg/d L plus symptoms Blood Urea Nitrogen 12 8 - 18 mg/dL [facility] Creatinine 0.87 0.70 - 1.20 mg/dL [facility] Comment: Please note that the pediatric reference intervals supplied above were not validated at [facility]. Results from pediatric patients should be interpreted in conjunction to the patient's age, height and muscle mass. Sodium 142 135 - 145 mmol/L [facility] [...] questions. Chloride 102 98 - 107 mmol/L [facility] Carbon Dioxide 26 22 - 31 mmol/L [facility] Anion Gap 14 5 - 15 mmol/L [facility] Calcium 9.7 8.5 - 10.5 mg/dL [facility] [...] the following links into your internet browser. [email or web address] Blood specimen (specimen) 08/18/2016 4:50 PM EST 08/18/2016 5:03 PM EST Narrative Resulting Agency Comment Spec In Lab Alirio Esparza [place] [address] documented in this encounter Visit Diagnoses Diagnosis Aortic valve stenosis, unspecified etiology documented in this encounter Care Teams Commercial Attache Relationship Specialty Start Date End Date Deborah Quiroga, PAD EXTRACTION TENDER PCP - General Family Medicine 03/24/16 02/04/23 documented as of this encounter
--- OUTSIDE RECORDS SUMMARY | 2024-05-25 14:13 | XMS_ITS | Encounter Summary ---
Author Organization [facility] Address [facility] [place] [address] Care Team Providers Care Laundry Bag Punch Operator Name Role Phone Deborah Quiroga APRN Primary Care Provider [phone] Encounter Details Date Type Department Care Team (Late st Contact Info) Description 09/17/2016 External Results Hematology and Oncology at [place] [phone] Alexandrea [place]wood RN Neutropenia, unspecified type Social [...] 10:00 AM EDT Office Visit Rheumatology at [place] [phone] Magdalena Peralta MD [facility] [place] [address] 06/05/2024 2:00 PM EST Hospital Encounter Outpatient Surgery Center [place] [phone] Markel Borjas MD [facility] DR [place] [address] 06/05/2024 2:00 PM EST - 06/05/2024 3:00 PM EST Surgery [place]patient [place] [phone] Markel Borjas MD [facility] DR HEMATOLOGY [place] [address] (OSC MSURG) BONE MARROW BIOPSY AND ASPIRATION; DIAGNOSTIC (WRVU 1.44) 06/23/2024 2:00 PM EST Office Visit [place]ematology [place] [phone] Markel Borjas MD [facility] DR HEMATOLOGY [place] [address] 03/01/2025 4:15 PM EDT Office Visit Dermatology at [place] [address] [place] [phone] Marek Bonilla MD [address], [place] [address] Scheduled Procedures Name Priority Associated [...] type documented in this encounter Care Teams Laundry Bag Punch Operator Relationship Specialty Start Date End Date Deborah Quiroga, LANDING SCALER PCP - General Family Medicine 03/24/16 02/04/23 documented as of this encounter
--- OUTSIDE RECORDS SUMMARY | 2024-05-25 14:13 | XMS_ITS | Encounter Summary ---
Author Organization [facility] Address [facility] [place] [address] Care Team Providers Care Mental Health Unit Lead Psychologist Name Role Phone Deborah Quiroga APRN Primary Care Provider [phone] Encounter Details Date Type Department Care Team (Late st Contact Info) Description 07/22/2016 External Results Hematology and Oncology at [place] [phone] Alexandrea [place] RN Neutropenia, unspecified type Social [...] 10:00 AM EDT Office Visit Rheumatology at [place] [phone] Magdalena Peralta MD [facility] [place] [address] 06/05/2024 2:00 PM EST Hospital Encounter Outpatient Surgery Center [place] [phone] Markel Borjas MD [facility] [place] [address] 06/05/2024 2:00 PM EST - 06/05/2024 3:00 PM EST Surgery [place] [address] Markel Borjas MD [facility] DR HEMATOLOGY [place] [address] (OSC MSURG) BONE MARROW BIOPSY AND ASPIRATION; DIAGNOSTIC (WRVU 1.44) 06/23/2024 2:00 PM EST Office Visit Hematology [place] [phone] Markel Borjas MD [facility] DR HEMATOLOGY [place] [address] 03/01/2025 4:15 PM EDT Office Visit Dermatology at [place] [address] [place] [phone] Marek Bonilla MD [address], [place] [address] Scheduled Procedures Name Priority Associated [...] AM EST Neutropenia, unspecified type MONONUCLEOSIS SCREEN (APD/JEANN[facility]) Routine 07/20/2016 10:30 AM EST Neutropenia, unspecified type CBC (WITH DIFF) Routine 07/20/2016 10:30 AM EST Neutropenia, unspecified type documented in this encounter Results * Copper, serum (07/20/2016 10:30 AM EST) Copper (NOVEMBER) 1.09 0.75 - 1.45 EXTERNAL LAB Blood specimen (specimen) 07/20/2016 10:30 AM EST Markel Borjas MD LAB SEND OUT ORDER JODIE Performing Organization Address [facility] de Phone Number EXTERNAL LAB * CMV PCR, Quantitative (07/20/2016 10:30 AM EST) CMV PCR,Quantitati ve undetected EXTERNAL LAB Blood specimen (specimen) 07/20/2016 10:30 AM EST Markel Borjas MD MOLECULAR ORDERABL ES Performing Organization Address [facility] Phone Number EXTERNAL LAB * Mononucleosis Screen (07/20/2016 10:30 AM EST) Mononucleosis Screen neg neg - neg EXTERNAL LAB Blood specimen (specimen) 07/20/2016 10:30 AM EST Markel Borjas MD IMMUNOLOGY ORDERAB LES Performing Organization Address [facility] de Phone Number EXTERNAL LAB * (ABNORMAL) CBC (with Diff) (07/20/2016 10:30 AM EST) White Blood Cell 1.61(A) 4.4 - 10.8 EXTERNAL LAB Hemoglobin 12.3 12.0 - 16.0 EXTERNAL LAB Hematocrit 37.2 36.0 - 46.0 EXTERNAL LAB Platelet 229 130 - 400 EXTERNAL LAB Blood specimen (specimen) 07/20/2016 10:30 AM EST Markel Borjas MD HEMATOLOGY ORDERAB LES Performing Organization Address [facility] de Phone Number EXTERNAL LAB documented in this encounter Visit Diagnoses Diagnosis Neutropenia, unspecified type documented in this encounter Care Teams Mental Health Unit Lead Psychologist Relationship Specialty Start Date End Date Deborah Quiroga, RETAIL SUPPORT SPECIALIST PCP - General Family Medicine 03/24/16 02/04/23 documented as of this encounter
--- OUTSIDE RECORDS SUMMARY | 2024-05-25 14:13 | XMS_ITS | Encounter Summary ---
Author Organization [facility] Address [facility] [place] [address] Care Team Providers Care Fish Agent Name Role Phone Deborah Quiroga APRN Primary Care Provider [phone] Encounter Details Date Type Department Care Team (Late st Contact Info) Description 08/04/2016 External Results Hematology and Oncology at [place] [phone] Alexandrea Greenwood RN Neutropenia, unspecified type Social [...] AM EDT Office Visit Rheumatology at [place] [phone] Magdalena Peralta MD [facility] [place] [address] 06/05/2024 2:00 PM EST Hospital Encounter Outpatient Surgery Center [place] [phone] Markel Borjas MD [facility] [address] [place] [address] 06/05/2024 2:00 PM EST - 06/05/2024 3:00 PM EST Surgery Outpatient [place] [phone] Markel Borjas MD [facility] DR [place] [address] (OSC MSURG) BONE MARROW BIOPSY AND ASPIRATION; DIAGNOSTIC (WRVU 1.44) 06/23/2024 2:00 PM EST Office Visit [place]ematology [place] [phone] Markel Borjas MD [facility] DR [place] [address] 03/01/2025 4:15 PM EDT Office Visit Dermatology at [place] [address] [place] [phone] Marek Bonilla MD [address] [place] [address] Scheduled Procedures Name Priority Associated [...] type documented in this encounter Care Teams Fish Agent Relationship Specialty Start Date End Date Deborah Quiroga, LINE HAUL TRUCK DRIVER PCP - General Family Medicine 03/24/16 02/04/23 documented as of this encounter
--- OUTSIDE RECORDS SUMMARY | 2024-05-25 14:13 | XMS_ITS | Encounter Summary ---
[place] [address] Care Team Providers Care Pipe Smoking Machine Operator Name Role Phone Ashley Quirogan Cornelius ANURAG Primary Care Provider [phone] Reason for Visit * Reason Onset Date Comments Medication Management 09/14/2016 Encounter Details Date Type Department Care Team (Late st Contact Info) Description 09/14/2016 Telephone Hematology [place] [phone] Alexandrea Greenwood, hardboard grinder Management Social History Tobacco Use Types Packs/Day [...] 09/14/2016 9:12 AM EST Message received from loan secretary: Purnima called, asking for clarification on [...] 10:00 AM EDT Office Visit Rheumatology at [place] [phone] Magdalena Peralta MD [facility] [place] [address] 06/05/2024 2:00 PM EST Hospital Encounter Outpatient [place] [phone] Markel Borjas MD [facility] DR [place] [address] 06/05/2024 2:00 PM EST - 06/05/2024 3:00 PM EST Surgery Outpatient [place] [phone] Markel Borjas MD [facility] [address] [place] [address] (OSC MSURG) BONE MARROW BIOPSY AND ASPIRATION; DIAGNOSTIC (WRVU 1.44) 06/23/2024 2:00 PM EST Office Visit Hematology [place] [phone] Markel Borjas MD [facility] DR [place] [address] 03/01/2025 4:15 PM EDT Office Visit Dermatology at [place] [address] [place] [phone] Marek Bonilla MD [address] [place] [address] Scheduled Procedures Name Priority Associated Diagnoses Date/Ti me (OSC MSURG) BONE MARROW BIOPSY AND ASPIRATION; DIAGNOSTIC (WRVU 1.44) Anemia, in pt with longstanding neutropenia 06/05/2024 2:00 PM EST documented as of this encounter Visit Diagnoses Not on filedocumented in this encounter Care Teams Pipe Smoking Machine Operator Relationship Specialty Start Date End Date Deborah Quiroga, SUPERVISOR BEAM DEPARTMENT PCP - General Family Medicine 03/24/16 02/04/23 documented as of this encounter
--- OUTSIDE RECORDS SUMMARY | 2024-05-25 14:13 | XMS_ITS | Encounter Summary ---
[place] [address] Care Team Providers Care Traffic Signal Technician Name Role Phone Ashley Quirogan Cornelius ANURAG Primary Care Provider [phone] Reason for Visit * Reason Onset Date Comments Medical Care Coordination 09/14/2016 Encounter Details Date Type Department Care Team (Late st Contact Info) Description 09/14/2016 Telephone Hematology [place] [phone] Alexandrea Greenwood RN Medical Care Coordination Social [...] alumnae secretary: Injection/Infusion Referral Call placed to [facility] Infusion Room Spoke charis Bragg. Services to be provided for pt are: Miles 09/16/16 Mahsa confirmed they would provide services to pt and would contact with appointment time. Pt aware to expect the phone call ??orders faxed to [phone]). documented in this encounter Plan of Treatment Upcoming Encounters Date Type Department Care Team (Late st Contact Info) Description 06/01/2024 10:00 AM EDT Office Visit Rheumatology at [place] [phone] Magdalena Peralta MD [facility] [place] [address] 06/05/2024 2:00 PM EST Hospital Encounter Outpatient Surgery Center [place] [phone] Markel Borjas MD [facility] DR HEMAT[place] [address] 06/05/2024 2:00 PM EST - 06/05/2024 3:00 PM EST Surgery Outpatient [facility] [place] [phone] Markel Borjas MD [facility] DR [place] [address] (OSC MSURG) BONE MARROW BIOPSY AND ASPIRATION; DIAGNOSTIC (WRVU 1.44) 06/23/2024 2:00 PM EST Office Visit Hematology and Oncology at [place] [phone] Markel Borjas MD [facility] DR HEMATOLOGY [place] [address] 03/01/2025 4:15 PM EDT Office Visit Dermatology at [place] [address] [place] [address] Marek Bonilla MD [address], [place] [address] Scheduled Procedures Name Priority Associated Diagnoses Date/Ti me (OSC MSURG) BONE MARROW BIOPSY AND ASPIRATION; DIAGNOSTIC (WRVU 1.44) Anemia, in pt with longstanding neutropenia 06/05/2024 2:00 PM EST documented as of this encounter Visit Diagnoses Not on filedocumented in this encounter Care Teams Traffic Signal Technician Relationship Specialty Start Date End Date Deborah Quiroga APRN PCP - General Family Medicine 03/24/16 02/04/23 documented as of this encounter
--- OUTSIDE RECORDS SUMMARY | 2024-05-25 14:13 | XMS_ITS | Encounter Summary ---
[place] [address] Care Team Providers Care Stunt Man Name Role Phone JunaidDeborah APRN Primary Care Provider [phone] Reason for Visit * Reason Onset Date Comments Labs Only 09/16/2016 Encounter Details Date Type Department Care Team (Late st Contact Info) Description 09/16/2016 Telephone Hematology [place] [phone] Alexandrea Greenwood, RN Labs Only Social History [...] having her Neulasta done today at [facility]. ??She is wondering if we want to do a CBC prior to the injection? [phone] Borjas: CBC is fine RN spoke with Swapna at [facility] who confirms they can draw CBC on pt today, RN faxed CBC w/diff to [facility] lab at [phone] RN relayed to pt that CBC ordered had been faxed to [facility], pt will have CBC drawn today prior to neulasta injection. documented in this encounter Plan of Treatment Upcoming Encounters Date Type Department Care Team (Late st Contact Info) Description 06/01/2024 10:00 AM EDT Office Visit Rheumatology at [place] [phone] Magdalena Peralta MD [facility] [place] [address] 06/05/2024 2:00 PM EST Hospital Encounter Outpatient [place] [phone] Markel Borjas MD [facility] DR HEMATOLOGY [place] [address] 06/05/2024 2:00 PM EST - 06/05/2024 3:00 PM EST Surgery Outpatient [place] [phone] Markel Borjsa MD [facility] DR HEMATOLOGY [place] [address] (OSC MSURG) BONE MARROW BIOPSY AND ASPIRATION; DIAGNOSTIC (WRVU 1.44) 06/23/2024 2:00 PM EST Office Visit Hematology [place] [address] Markel Borjas MD [facility] HEMATOLOGY [place] [address] 03/01/2025 4:15 PM EDT Office Visit Dermatology at [address] [place] [phone] Marek Bonilla MD [address], [place] [address] Scheduled Procedures Name Priority Associated Diagnoses Date/Ti [...] type documented in this encounter Care Teams Stunt Man Relationship Specialty Start Date End Date Deborah Quiroga APRN PCP - General Family Medicine 03/24/16 02/04/23 documented as of this encounter
--- OUTSIDE RECORDS SUMMARY | 2024-05-25 14:13 | XMS_ITS | Encounter Summary ---
Author Organization [facility] Address [facility] [place] [address] Care Team Providers Care Stone Setter Metal Optical Frames Name Role Phone Deborah Quiroga APRN Primary Care Provider [phone] Encounter Details Date Type Department Care Team (Late st Contact Info) Description 07/31/2016 Orders Only Hematology and Oncology at [place] [phone] Alexandrea Greenwood RN Neutropenia, unspecified type Social [...] 10:00 AM EDT Office Visit Rheumatology at [place] [phone] Magdalena Peralta MD [facility] [address] 06/05/2024 2:00 PM EST Hospital Encounter Outpatient Surgery Center [place] [phone] Markel Borjas MD [facility] DR [place] [address] 06/05/2024 2:00 PM EST - 06/05/2024 3:00 PM EST Surgery Outpatient [place] [phone] Markel Borjas MD [facility] DR [place] [address] (OSC MSURG) BONE MARROW BIOPSY AND ASPIRATION; DIAGNOSTIC (WRVU 1.44) 06/23/2024 2:00 PM EST Office Visit Hematology [place] [phone] Markel Borjas MD [facility] DR [place] [address] 03/01/2025 4:15 PM EDT Office Visit Dermatology at [place] [address] [place] [phone] Marek Bonilla MD [address], [place] [address] Scheduled Procedures Name Priority Associated [...] type documented in this encounter Care Teams Stone Setter Metal Optical Frames Relationship Specialty Start Date End Date Deborah Quiroga, ANURAG PCP - General Family Medicine 03/24/16 02/04/23 documented as of this encounter
--- OUTSIDE RECORDS SUMMARY | 2024-05-25 14:13 | XMS_ITS | Encounter Summary ---
[place] [address] Care Team Providers Care Senior Data Scientist Name Role Phone Deborah Quiroga ANURAG Primary Care Provider [phone] Reason for Visit * Reason Onset Date Comments Medical Care Coordination 07/17/2016 Encounter Details Date Type Department Care Team ([facility] Contact Info) Description 07/17/2016 Telephone Hematology [place] [phone] Alexandrea Greenwood RN Medical Care Coordination Social [...] 07/17/2016 12:07 PM EST Message received from automobile glass technician: Injection/Infusion Referral Call placed to [phone]). Spoke w/ Pasquale. Services to be provided for pt are: Labs @ 10am ([facility]) & Neulasta @ 11am on 07/20/16, CBC only on 07/30/16 Pasquale confirmed they would provide services to pt and I left [facility] for pt to call for appt info. Pt demographics, office note, med list and orders faxed to [facility] & [facility] documented in this encounter Plan of Treatment Upcoming Encounters Date Type Department Care Team (Late st Contact Info) Description 06/01/2024 10:00 AM EDT Office Visit Rheumatology at [place] [phone] Magdalena Peralta MD [facility] DR [place] [address] 06/05/2024 2:00 PM EST Hospital Encounter Outpatient Surgery Center [place] [phone] Markel Borjas MD [facility] DR HEMATOLOGY [place] [address] 06/05/2024 2:00 PM EST - 06/05/2024 3:00 PM EST Surgery [place] [phone] Markel Borjas MD [facility] DR [place] [address] (OSC MSURG) BONE MARROW BIOPSY AND ASPIRATION; DIAGNOSTIC (WRVU 1.44) 06/23/2024 2:00 PM EST Office Visit Hematology [place] [phone] Markel Borjas MD [facility] DR [place] [address] 03/01/2025 4:15 PM EDT Office Visit Dermatology at [place] [address] [place] [phone] Marek Bonilla MD [address] [place] [address] Scheduled Procedures Name Priority Associated Diagnoses Date/Ti me (OSC MSURG) BONE MARROW BIOPSY AND ASPIRATION; DIAGNOSTIC (WRVU 1.44) Anemia, in pt with longstanding neutropenia 06/05/2024 2:00 PM EST documented as of this encounter Visit Diagnoses Not on filedocumented in this encounter Care Teams Senior Data Scientist Relationship Specialty Start Date End Date Deborah Quiroga, COMPTOMETER OPERATOR PCP - General Family Medicine 03/24/16 02/04/23 documented as of this encounter
--- OUTSIDE RECORDS SUMMARY | 2024-05-25 14:13 | XMS_ITS | Encounter Summary ---
[place] [address] Care Team Providers Care Surgical Consultant Name Role Phone Deborah Quiroga ANURAG Primary Care Provider [phone] Reason for Visit * Reason Onset Date Comments Medical Care Coordination 07/31/2016 Encounter Details Date Type Department Care Team (Late st Contact Info) Description 07/31/2016 Telephone Hematology [place] [phone] Alexandrea Greenwood RN Medical Care Coordination Social [...] 08/04/15 RN spoke with Aydee of the [facility] lab who states they can draw pt's cbc on 08/04/15, RN faxed lab req to [phone] at Aydee's request. RN instructed pt on Dr. Borjas's direction above. Pt verbalized understanding. documented in this encounter Plan of Treatment Upcoming Encounters Date Type Department Care Team (Late st Contact Info) Description 06/01/2024 10:00 AM EDT Office Visit Rheumatology at [place] [phone] [facility] [place] [address] 06/05/2024 2:00 PM EST Hospital Encounter Outpatient Surgery Center [place] [phone] [facility] [place] [address] 06/05/2024 2:00 PM EST - 06/05/2024 3:00 PM EST Surgery Outpatient [facility] [place] [phone] [facility] [address] [place] [address] (OSC MSURG) BONE MARROW BIOPSY AND ASPIRATION; DIAGNOSTIC (WRVU 1.44) 06/23/2024 2:00 PM EST Office Visit [place]ematology [place] [phone] [facility] [address] [place] [address] 03/01/2025 4:15 PM EDT Office Visit Dermatology at [place] [address] [facility] [place] [address] Marek Bonilla MD [address], [place] A DERMATOLOGY [place], [place] [address] Scheduled Procedures Name Priority Associated Diagnoses Date/Ti me (OSC MSURG) BONE MARROW BIOPSY AND ASPIRATION; DIAGNOSTIC (WRVU 1.44) Anemia, in pt with longstanding neutropenia 06/05/2024 2:00 PM EST documented as of this encounter Visit Diagnoses Not on filedocumented in this encounter Care Teams Surgical Consultant Relationship Specialty Start Date End Date Deborah Quiroga, ANURAG PCP - General Family Medicine 03/24/16 02/04/23 documented as of this encounter
--- OUTSIDE RECORDS SUMMARY | 2024-05-25 14:13 | XMS_ITS | Encounter Summary ---
Author Organization Formerly [facility] [place] [address] Care Team Providers Care Book Salesman Name Role Phone Ashley Quirogan Cornelius ANURAG Primary Care Provider [phone] Reason for Referral * Consultation (Routine) - Specialty Diagnoses / Procedures Referred By Contact Referred To Contact Cardiac Rehabilitation Diagnoses S/P AVR Alirio Esparza MD [facility] [place] [address] Cardiac Rehab, [address] [place] [address] Referral ID Status Reason Start Date Expiration Date V isits Requested Visits Authorized [id number] Consult, Test & Treat 09/25/2016 03/24/2017 36 36 Reason for Visit * Auth/Cert Specialty Diagnoses / Procedures Referred By Contkrystle t Referred To Contact Diagnoses Aortic stenosis Procedures PRO REPLACE AORT VALV, PROSTH VALV @REPLACE AORTIC VALVE, OPEN, W\CPB, W\PROSTHETIC VALVE (WRVU 41.32) Referral ID Status Reason Start Date Expiration Date Visits Re quested Visits Authorized [id number] 1 1 Encounter Details Date Type Department Care Team (Latest Contact Info) Description 09/21/2016 6:08 AM EST - 09/25/2016 4:33 PM EST Hospital Encounter Intermediate [place] [id number] Alirio Esparza MD Aortic valve stenosis, unspecified [...] Patient Age: 61 y.o. Birthdate: 1955 Language: Telugu Race: White Ethnicity: Not nor Admit Date: 09/21/2016 Discharge Date: 09/25/2016 Attending Physician: Alirio Esparza MD Follow-up Recommendations for Providers: Please continue routine management of cardiovascular risk factors including blood pressure, lipids,glucose, etc. Please note any changes to medications. Patient to follow-up with PCP, Deborah Quiroga APRN, in 1-2 weeks. Patient to follow-up with Dormitory Supervisor, Dr. Antelmo Burrell, in two weeks. Patient to follow-up with Cardiac Surgery, Dr. Alirio Esparza, to be scheduled for before 10/19/2016, with CXR, EKG, and Echo. Inpatient Provider Contact Information: [facility] Section of Cardiac Surgery [facility] [address] FAX [phone] Discharge Diagnoses (Hospital Problems) Primary Diagnoses: Secondary [...] 41.32) performed by Alirio Esparza MD at [facility] ??? Pro aortoplas for supravalv sten N/A 09/21/2016 @AORTOPLASTY FOR SUPRAVALVULAR STENOSIS (WRVU 29.33) performed by Alirio Esparza MD at [facility] Prior To Admission Medications [...] Alirio Esparza and/or the Cardiac Surgery Physician Personnel Generalist Manager Team may be reached at . Antibiotic prophylaxis: You will need to take antibiotics prior to many invasive tests and treatments, such as dental cleaning, which should be done every 6 months. Your primary care physician or your dentist can prescribe this medication. Please refer to the card with the [place] Heart Association Guidelines for more information. You have been provided with 3 copies of this card. Keep one for your self. Give one to your primary care physician and one to your dentist. Please refer to the [place] Heart Association Guidelines for more information. Good [...] Dr. Alirio Jones. You may use a [place] Track or treadmill but avoid any pulling [...] a low fat, low cholesterol, [place] Heart Association Diet. Driving: No driving until [...] AM Markel Borjas MD [facility] [phone] Future Orders Complete By Expires Echocardiogram Transthoracic([place]) [GSZ511 Custom] 10/18/2016 (Approximate) 09/18/2017 Process Instructions: If the Echocardiogram is to be PERFORMED in a location other than [place]--STOP and order GFF135, Echocardiogram South/External. Scheduling Instructions: Questions: Is a Bubble Study requested?: No Does the patient have Congenital Heart Disease?: No Does patient require sedation?: None GA rationale: Should this service be billed to the research sponsor?: EKG 12 Lead [EKG1 Custom] 10/18/2016 (Approximate) 09/25/2017 Process Instructions: Scheduling Instructions: Questions: Which location will this be performed?: [place] Is a rhythm strip needed?: No If EKG Reason is Pre-op Evaluation, indicate diagnosis for surgery.: Should this service be billed to the research sponsor?: XR Chest PA & Lateral (Generic) [[id number] Custom] 10/18/2016 (Approximate) 09/25/2017 Process Instructions: Scheduling Instructions: Questions: Where will study be performed?: [facility]- Radiology Portable exam?: No Reason for exam and clinical history: s/p AVReplacement, patch annuloplasty 1 month f/u Other pertinent information: Stat read required?: Date of injury if applicable: Requested Time: Referral to Cardiac Rehab [XXL000 Custom] As directed Process Instructions: If no progress note charted, please enter Clinical details in comments. Scheduling Instructions: Questions: My question or request is: s/p AVR. Cardiac rehab at [facility] Referral to Home Health - at DISCHARGE [EQH3414 CPT(R)] As directed Process Instructions: Scheduling Instructions: Comments: DOCUMENTATION FOR VNA SERVICES (INCLUDING THOSE PATIENTS WITH MEDICARE COVERAGE REQUIRING HOME VNA SERVICES AND/OR HOSPICE SERVICES) PATIENT'S LOCATION: Purnima Magalie Kirstie [address] [place] [phone] (home) No relevant phone numbers on file. Mask Layout Designer's Name: self In discussion with the attending physician, it is certified that this patient is under their care and that they, or a Nurse Practitioner, or Physician Personnel Generalist Manager who is working directly with them, [...] [facility] PHONE: [phone] FAX: [phone] RN orders: Cardiopulmonary assessment, incisional assessment, assess [...] issues please call the Cardiac SurgeryOffice at [phone] FOR MEDICARE ONLY: In discussion with the [...] AFTER 09/30/16 Signed: Crispin Aranda PA-C 09/25/2016 [facility] Section of Cardiac Surgery [facility] [address] FAX [phone] Date: 09/25/2016 CC: ANURAG Alford Caryn E, APRN [address] [place] [address] documented in this encounter Discharge Instructions * [...] Alirio Esparza and/or the Cardiac Surgery Physician Personnel Generalist Manager Team may be reached at . Antibiotic prophylaxis: You will need to take antibiotics prior to many invasive tests and treatments, such as dental cleaning, which should be done every 6 months. Your primary care physician or your dentist can prescribe this medication. Please refer to the card with the [place] Heart Association Guidelines for more information. You have been provided with 3 copies of this card. Keep one for your self. Give one to your primary care physician and one to your dentist. Please refer to the [place] Heart Association Guidelines for more information. Good [...] Dr. Alirio Jones. You may use a [place] Track or treadmill but avoid any pulling [...] a low fat, low cholesterol, [place] Heart Association Diet. Driving: No driving until [...] PM EST Cardiac Surgery Progress Note: ID: [id number] S/p AVR, patch aortoplasty POD#2. PMH of [...] Gas) No results found for: PHART, PO2ART, [id number] Assessment/Plan: TPW out this am. (+) BM. [...] Signed: Crispin Aranda PA-C 09/24/2016 Team pager: [phone]; [phone] [facility] Section of Cardiac Surgery * Leonor Henson, SPORTS EQUIPMENT REPAIRER - 09/23/2016 10:48 AM EST Cardiac Surgery Progress Note: ID: [id number] s/p AVR, patch aortoplasty POD#2. PMH of [...] Gas) No results found for: PHART, PO2ART, [id number] Assessment/Plan: s/p AVR, patch aortoplasty POD#2. PMH of Neutropenia, HLD, HTN, Depression, obesity, . Transferred from [facility] yesterday and doing well. Pathway. Will [...] AM EST Cardiac Surgery Progress Note: ID: [id number] s/p AVR, patch aortoplasty POD#1. PMH of [...] NT, ND, soft. Ext: Moves all extremities. Laureles, well perfused. Incisions: C/D/I Tubes/Lines/Drains: PIV, leanna, [...] with outpatient services Lalitha Cohen SPTA Pager: [phone] Inpatient Physical Therapy Patient status, treatment interventions, and goals discussed with student. I am in agreement with all details and associated flowsheet rows as documented and was present for all aspects of the patient treatment session. Nerykatrina Jaramillo, [facility] Pager [phone] Problem: Acute Rehab Services Goal & Intervention Plan Goal: Bed Mobility Goal Stand Alone Therapy Goal Outcome: Ongoing (Interventions Implemented as Appropriate) 09/22/16 16109/25/16 09 Bed Mobility Goal Bed Mobility Goal, Time to Achieve 4 days -- Bed Mobility Goal, Activity Type scoot/bridge;supine to sit/sit to supine -- Bed Mobility Goal, Burke Level independent -- Bed Mobility Goal, Additional [...] Achieve 4 days -- Gait Training Goal, Burke Level independent -- Gait Training Goal, Distance [...] home with home health Lalitha Cohen [facility] Pager: [phone] Inpatient Physical Therapy Patient status, treatment interventions, and goals discussed with student. I am in agreement with all details and associated flowsheet rows as documented and was present for all aspects of the patient treatment session. Nery Jaramillo, [facility] Pager [phone] Problem: Acute Rehab Services Goal & Intervention Plan Goal: Bed Mobility Goal Stand Alone Therapy Goal Outcome: Ongoing (Interventions Implemented as Appropriate) 09/22/16 16109/23/16 1412 Bed Mobility Goal Bed Mobility Goal, Time to Achieve 4 days -- Bed Mobility Goal, Activity Type scoot/bridge;supine to sit/sit to supine -- Bed Mobility Goal, Burke Level independent -- Bed Mobility Goal, Additional [...] Achieve 4 days -- Gait Training Goal, [place] Level independent -- Gait Training Goal, Distance [...] days -- Transfer Training Goal, Activity Type ewp-gm-tznhe/jrrlt-yl-eir;wdk-tg-rldwt/lxckx-mn-yzr -- Transfer Train Goal, Burke Level independent -- Transfer Training Goal, Additional [...] Another Service: (cardiac rehab) NICOLE HERNANDEZ, PT Pager:[phone] Inpatient Physical Therapy Problem: Acute Rehab Services Goal & Intervention Plan Goal: Bed Mobility Goal Stand Alone Therapy Goal Outcome: Ongoing (Interventions Implemented as Appropriate) 09/22/16 1611 Bed Mobility Goal Bed Mobility Goal, Time to Achieve 4 days Bed Mobility Goal, Activity Type scoot/bridge;supine to sit/sit to supine Bed Mobility Goal, Burke Level independent Bed Mobility Goal, Additional Goal able to abide sternal precautions during transfers Goal: Gait Training Goal Stand Alone Therapy Goal Outcome: Ongoing (Interventions Implemented as Appropriate) 09/22/16 1611 Gait Training Goal Gait Training Goal, Date Established 09/22/16 Gait Training Goal, Time to Achieve 4 days Gait Training Goal, Burke Level independent Gait Training Goal, Distance to Achieve ascend and descends 2 steps independently Goal: Goal Transfer Training Stand Alone Therapy Goal Outcome: Ongoing (Interventions Implemented as Appropriate) 09/22/16 1611 Goal Transfer Training Transfer Training Goal, Time to Achieve 4 days Transfer Training Goal, Activity Type kvh-ca-awfwt/jszgs-eh-kbu;ahw-oa-xyeja/byoib-gr-gaa Transfer Train Goal, Burke Level independent Transfer Training Goal, Additional Goal [...] of completing AD's at home, chooses her orpifq-gf-olt, Martha Thacker (home) [facility], 2nd choice in friend, Nitesh Leroy [place], [place] Current Coping/Education/Information Needs: patient sitting [...] who live close by, [place], and her ljfamu-bh-dfw Martha Thacker who she has chosen to be her DPOAH. Also has a friend Nitesh Leroy who lives in [place], [place], also her DPOAH choice. Behavioral Health History: none on file in e[facility] Substance Use/Abuse: none on file in [facility] Other Pertinent/Service Specific Information: none Health/Prescription Coverage: Primary Insurance: [employer] Secondary Insurance: none Prescription Coverage: yes, per patient no issues Preferred Pharmacy: ?? Other: none Primary Care Provider: Deborah Quiroga, SPORTS EQUIPMENT REPAIRER [phone] Patient/Caregiver Goals of Treatment: per medical team recommendations at discharge for CT surgery Potential Needs for Transition of Care: Rehab/SNF: TBD Home Health: TBD DME: no Dialysis: no Community Resources: non3 Transportation: ride home with a friend Other: none Anticipated Barriers to Discharge/Special Considerations: none anticipated at this time Plan: patient will need VNA services at discharge. The patient/videotape sales representative has been provided a list of Home Health Agencies/DME vendors which servetheir preferred geographic area. A letter describing our affiliations was reviewed with them and they were educated about their right to choose where referrals are placed. Patient requests referral to: [facility] PHONE: [phone] FAX: [phone] Expected date of discharge: Fri/Sat? CM called VNA to confirm referral, talked with VALDO Bunn/intake who stated she was familiar w/patient & would monitor her progress through curaspan. Referral routed to the Ice Cream Man for matching with agency/vendor and to provide any required information. A member of the Care Management team will continue to monitor progress, follow for continuity of care and assist with transition of care planning. Amanda Moreno RN Pager: [phone] * Op Note - Alirio Esparza MD - 09/21/2016 12:53 PM EST 09/23/2016 Purnima Thacker 1955 [id number] Preoperative Diagnosis: Symptomatic aortic stenosis Postoperative Diagnosis: Symptomatic aortic stenosis Procedure: Aortic valve replacement: Bovine Pericardial 25 mm Surgeon: Alirio Esparza M.D. Personnel Generalist Manager: Philip BALL Anesthesia: General endotracheal anesthesia [...] Operative Note Patient Name: Purnima Thacker : [id number] MR#: [id number] Case Date: 09/21/2016 Surgeon: Surgeon(s) and Role: * Alirio Esparza MD - Primary * Nico Palacios PA - Physician Personnel Generalist Manager Preoperative diagnosis: Postoperative diagnosis: Procedure(s) (LRB): [...] 10:00 AM EDT Office [place] [address] Magdalena Peralta MD [facility] [place] [address] 06/05/2024 2:00 PM EST Hospital Encounter [place]patient [place] [phone] Markel Borjas MD [facility] [address] [place] [address] 06/05/2024 2:00 PM EST - 06/05/2024 3:00 PM EST Surgery [place] [phone] Markel Borjas MD [facility] [address] [place] [address] (OSC MSURG) BONE MARROW BIOPSY AND ASPIRATION; DIAGNOSTIC (WRVU 1.44) 06/23/2024 2:00 PM EST Office Visit Hematology [place] [address] Markel Borjas MD [facility] [address] [place] [address] 03/01/2025 4:15 PM EDT Office Visit Dermatology at [place] [address] [place] [phone] Marek Bonilla MD [address], [place] [address] Scheduled Orders Name Type Priority Associated Diagnoses [...] IMPLANTABLE DEVICES SCAN 09/26/2016 12:00 AM EST LONGWALL MACHINE OPERATOR HELPER SCAN 09/26/2016 12:00 AM EST [...] Routine 09/22/2016 4:00 AM EST CARDIAC ENZYMES ([facility]/CG[facility]) Routine 09/22/2016 4:00 AM [...] SCAN EXT O RDR/RSLT * SCAN DOC: LONGWALL MACHINE OPERATOR HELPER (09/26/2016 12:00 AM EST) Anatomical [...] CHEMISTRY ORDERABLE S [facility] [place] [address] * (ABNORMAL) Differential, Automated (09/24/2016 9:56 AM EST) Neutrophil % 76.8 % [facility] Neutrophil Absolute 7.79(H) 1.70 - 6.10 x10(3)/mc L [facility] Lymph % 11.1 % [facility] Lymphocytes Abs 1.1 0.9 - 3.2 x10(3)/mc L [facility] Monocyte % 8.5 % [facility] Monocyte Abs 0.9 0.3 - 0.9 x10(3)/mc L [facility] Eos % 0.5 % [facility] Eosinophils Abs 0.0 0.0 - 0.4 x10(3)/mc L [facility] Basophil % 0.2 % [facility] [...] Absolute 0.29(H) 0.00 - 0.04 x10(3)/mc L [facility] Blood specimen (specimen) 09/24/2016 9:56 AM EST 09/24/2016 10:04 AM EST Narrative Resulting Agency Comment Spec In Lab Alirio Esparza MD HEMATOLOGY ORDERABL ES [facility] [place] [address] * (ABNORMAL) Hemogram (09/24/2016 9:56 AM EST) White Blood Cell 10.1(H) 4.0 - 9.5 x10(3)/mc L [facility] Red Blood Cell 2.87(L) 4.00 - 5.21 x10(6)/mc L [facility] Hemoglobin 9.4(L) 11.7 - 15.5 gm/dL [facility] Hematocrit 28.3(L) 35.7 - 45.8 % [facility] Mean Cell Volume 98.6(H) 82.6 - 94.4 fL [facility] Mean Cell Hemoglobin 32.8(H) 27.1 - 32.0 pg [facility] Mean Cell Hemoglobin Concentration 33.2 31.7 - 35.0 gm/dL [facility] Platelet 141(L) 145 - 357 x10(3)/mc L [facility] RDW Standard Deviation 45.0 37.0 - 46.0 fL [facility] RDW coefficient of variation 12.6 11.5 - 14.1 % [facility] Mean Platelet Volume 9.4 7.6 - 12.9 fL [facility] NRBC% auto 1.1 % [facility] NRBC Absolute 0.110(H) 0.000 - 0.000 x10(3)/mc L [facility] Blood specimen (specimen) 09/24/2016 9:56 AM EST 09/24/2016 10:04 AM EST Narrative Resulting Agency Comment Spec In Lab Alirio Esparza MD HEMATOLOGY ORDERABL ES [facility] [place] [address] * (ABNORMAL) Basic Metabolic Panel (non-fasting) (09/24/2016 9:56 AM EST) Glucose 111 65 - 199 mg/dL [facility] Comment:Diabetes: >=200 mg/d L plus symptoms Blood Urea Nitrogen 23(H) 8 - 18 mg/dL [facility] [...] the following links into your internet browser. [email or web address] Blood specimen (specimen) 09/24/2016 9:56 AM EST 09/24/2016 10:04 AM EST Narrative Resulting Agency Comment Spec In Lab Alirio Esparza MD CHEMISTRY ORDERABLE S [facility] [place] [address] * XR Chest PA & Lateral (Generic) [...] MD CHEMISTRY ORDERABLE S Performing Organization Address [facility]/ZIP Co de Phone Number [facility] [place] [address] * POCT Glucose (09/22/2016 8:17 AM EST) Glucose, POC 131 65 - 199 mg/dL [facility] Comment: Supplemental ranges: <140 mg/dL before meals <180 mg/dL all other times of the day Blood specimen (specimen) 09/22/2016 8:17 AM EST 09/22/2016 8:17 AM EST Alirio Esparza MD POINT OF CARE TEST ORDERABLES Performing Organization Address [facility] Co de Phone Number [facility] [place] [address] * POCT Glucose (09/22/2016 4:01 AM EST) Glucose, POC 135 65 - 199 mg/dL [facility] Comment: Supplemental ranges: <140 mg/dL before meals <180 mg/dL all other times of the day Blood specimen (specimen) 09/22/2016 4:01 AM EST 09/22/2016 4:01 AM EST Alirio Esparza MD POINT OF CARE TEST ORDERABLES Performing Organization Address [facility] Co de Phone Number [facility] [place] [address] * Scan, Peripheral Blood (09/22/2016 4:00 AM EST) Plat estimate Normal [facility] RBC Morphology Abnormal [facility] Macrocyte 1-5 /HPF [facility] Plat, Giant Less than 1 /HPF [facility] Blood specimen (specimen) 09/22/2016 4:00 AM EST 09/22/2016 4:34 AM EST Narrative Resulting Agency Comment Spec In Lab Alirio Esparza MD HEMATOLOGY ORDERABL ES Performing Organization Address [facility] [place] [address] * Electrolytes panel (09/22/2016 4:00 AM EST) Pathologist [facility] Sodium 145 135 - 145 mmol/L [facility] [...] mmol/L [facility] Carbon Dioxide 24 22 - 31 mmol/L [facility] Anion Gap 14 5 - 15 mmol/L [facility] Blood specimen (specimen) Venous Draw / Unknown 09/22/2016 4:00 AM EST 09/22/2016 4:34 AM EST Narrative Resulting Agency Comment Spec In Lab Alirio Esparza MD CHEMISTRY ORDERABLE S Performing Organization Address [facility] Co de Phone Number [facility] [place] [address] * (ABNORMAL) Differential, Automated (09/22/2016 4:00 AM EST) Neutrophil % 70.9 % [facility] Neutrophil Absolute 5.33 1.70 - 6.10 x10(3)/mc L [facility] Lymph % 9.1 % [facility] Lymphocytes Abs 0.7(L) 0.9 - 3.2 x10(3)/mc L [facility] Monocyte % 18.0 % [facility] Monocyte Abs 1.4(H) 0.3 - 0.9 x10(3)/[facility] Eos % 0.0 % [facility] Eosinophils Abs 0.0 0.0 - 0.4 x10(3)/[facility] Basophil % 0.1 % [facility] Baso Absolute 0.0 0.0 - 0.1 x10(3)/[facility] Immature Gran % 1.90 % [...] HEMATOLOGY ORDERABL ES [facility] [place] [address] * (ABNORMAL) Hemogram (09/22/2016 4:00 AM EST) White Blood Cell 7.5 4.0 - 9.5 x10(3)/[facility] Red Blood Cell 2.93(L) 4.00 - 5.21 x10(6)/[facility] Hemoglobin 9.2(L) 11.7 - 15.5 gm/dL [facility] Hematocrit 28.0(L) 35.7 - 45.8 % [facility] Mean Cell Volume 95.6(H) 82.6 - 94.4 fL [facility] Mean Cell Hemoglobin 31.4 27.1 - 32.0 pg [facility] Mean Cell Hemoglobin Concentration 32.9 31.7 - 35.0 gm/dL [facility] Platelet 161 145 - 357 x10(3)/mc L [facility] RDW Standard Deviation 44.0 37.0 - 46.0 fL [facility] RDW coefficient of variation 12.6 11.5 - 14.1 % [facility] Mean Platelet Volume 9.3 7.6 - 12.9 fL [facility] NRBC% auto 0.3 % [facility] NRBC Absolute 0.020(H) 0.000 - 0.000 x10(3)/mc L [facility] Blood specimen (specimen) 09/22/2016 4:00 AM EST 09/22/2016 4:34 AM EST Narrative Resulting Agency Comment Spec In Lab Alirio Esparza MD HEMATOLOGY ORDERABL ES [facility] [place] [id number] * (ABNORMAL) Cardiac Enzymes (09/22/2016 4:00 AM [...] of the Joint Society of Cardiology/[place] College of Cardiology Committee for the redefinition of myocardial infarction. ??Journal of the [place] College of Cardiology 2000; 36: 959-969] Creatine Kinase 338(H) 0 - 160 unit/L [facility] Blood specimen (specimen) 09/22/2016 4:00 AM EST 09/22/2016 4:34 AM EST Narrative Resulting Agency Comment Spec In Lab Alirio Esparza MD CHEMISTRY ORDERABLE S Performing Organization Address City/[facility] Co de Phone Number [facility] [place] [address] * (ABNORMAL) Glucose, fasting (09/22/2016 4:00 AM [...] Mellitus, Position Statement from the [place] Diabetes Association. ??Diabetes Care, Volume 33, Supplement 1, Aug 2009 Blood specimen (specimen) 09/22/2016 4:00 AM EST 09/22/2016 4:34 AM EST Narrative Resulting Agency Comment Spec In Lab Alirio Esparza MD CHEMISTRY ORDERABLE S Performing Organization Address City/[facility]/ZIP Co de Phone Number [facility] [place] [address] * (ABNORMAL) Creatinine (09/22/2016 4:00 AM EST) [...] the following links into your internet browser. [email or web address] [email or web address] Blood specimen (specimen) 09/22/2016 4:00 AM EST 09/22/2016 4:34 AM EST Narrative Resulting Agency Comment Spec In Lab Alirio Esparza MD CHEMISTRY ORDERABLE S Performing Organization Address [facility] Co de Phone Number [facility] [place] [address] * BUN (09/22/2016 4:00 AM EST) [facility] Blood Urea Nitrogen 10 8 - 18 mg/dL [facility] Blood specimen (specimen) 09/22/2016 4:00 AM EST 09/22/2016 4:34 AM EST Narrative Resulting Agency Comment Spec In Lab Alirio Esparza MD CHEMISTRY ORDERABLE S Performing Organization Address [facility] Co de Phone Number [facility] [place] [address] * POCT Glucose (09/21/2016 9:59 PM EST) [facility] Glucose, POC 146 65 - 199 mg/dL [facility] Comment: Supplemental ranges: <140 mg/dL before meals <180 mg/dL all other times of the day Blood specimen (specimen) 09/21/2016 9:59 PM EST 09/21/2016 9:59 PM EST Alirio Esparza MD POINT OF CARE TEST ORDERABLES Performing Organization Address [facility] de Phone Number [facility] [place] [address] * POCT Glucose (09/21/2016 7:26 PM EST) Glucose, POC 152 65 - 199 mg/dL [facility] Comment: Supplemental ranges: <140 mg/dL before meals <180 mg/dL all other times of the day Blood specimen (specimen) 09/21/2016 7:26 PM EST 09/21/2016 7:26 PM EST Alirio Esparza MD POINT OF CARE TEST ORDERABLES Performing Organization Address [facility] Phone Number [facility] [place] [address] * POCT Glucose (09/21/2016 6:00 PM EST) Glucose, POC 146 65 - 199 mg/dL [facility] Comment: Supplemental ranges: <140 mg/dL before meals <180 mg/dL all other times of the day Blood specimen (specimen) 09/21/2016 6:00 PM EST 09/21/2016 6:00 PM EST Alirio Esparza MD POINT OF CARE TEST ORDERABLES Performing Organization Address [facility] de Phone Number [facility] [place] [address] * (ABNORMAL) BLOOD GAS 2 ARTERIAL (09/21/2016 4:42 PM EST) pH, Arterial 7.35(L) 7.35 - 7.45 [facility] PCO2, Arterial 48(H) 35 - 45 mmHg [facility] PO2, Arterial 108(H) 85 - 104 mmHg [facility] Bicarbonate, Arterial 26.0 20.0 - 26.0 mmol/L [facility] Base Excess, Arterial 0.5 -3.0 - 3.0 mmol/L [facility] Hgb Blood Gas 10.4(L) 11.7 - 15.5 gm/dL [facility] Oxyhemoglobin, Arterial 96.2 94.0 - 97.0 % [facility] Carboxyhemoglob in, Arterial 0.0 % [facility] Comment: Nonsmokers: 0.5-1.5% COHB Smokers: Variable, but usually less than 10% Toxic: 20-30% COHB Lethal: Greater than 60% COHB Methemoglobin, Arterial 0.7 <=1.5 % [facility] Na Whole Blood 139 [...] [facility] FIO2 Art 40 % [facility] PF Ratio Art 270 [facility] Blood specimen (specimen) 09/21/2016 4:42 PM EST 09/21/2016 4:42 PM EST Alriio Esparza MD POINT OF CARE TEST ORDERABLES [facility] [place] [address] * POCT Glucose (09/21/2016 4:07 PM EST) Pathologist [facility] Glucose, POC 150 65 - 199 mg/dL [facility] Comment: Supplemental ranges: <140 mg/dL before meals <180 mg/dL all other times of the day Blood specimen (specimen) 09/21/2016 4:07 PM EST 09/21/2016 4:07 PM EST Alirio Esparza MD POINT OF CARE TEST ORDERABLES Performing Organization Address [facility] Co de Phone Number [facility] [place] [address] * (ABNORMAL) Hemoglobin (09/21/2016 4:05 PM EST) [facility] Hemoglobin 9.9(L) 11.7 - 15.5 gm/dL [facility] Blood specimen (specimen) 09/21/2016 4:05 PM EST 09/21/2016 4:20 PM EST Narrative Resulting Agency Comment Spec In Lab Alirio Esparza MD HEMATOLOGY ORDERABL ES Performing Organization Address [facility] Phone Number [facility] [place] [address] * Potassium (09/21/2016 4:05 PM EST) [facility] Potassium 4.6 3.5 - 5.0 mmol/L [facility] [...] MD CHEMISTRY ORDERABLE S Performing Organization Address [facility] Co de Phone Number [facility] [place] [address] * POCT Glucose (09/21/2016 2:52 PM EST) Glucose, POC 117 65 - 199 mg/dL [facility] Comment: Supplemental ranges: <140 mg/dL before meals <180 mg/dL all other times of the day Blood specimen (specimen) 09/21/2016 2:52 PM EST 09/21/2016 2:52 PM EST Alirio Esparza MD POINT OF CARE TEST ORDERABLES Performing Organization Address City/[facility]/ZIP Co de Phone Number [facility] [place] [address] * POCT Glucose (09/21/2016 1:51 PM EST) Glucose, POC 108 65 - 199 mg/dL [facility] Comment: Supplemental ranges: <140 mg/dL before meals <180 mg/dL all other times of the day Blood specimen (specimen) 09/21/2016 1:51 PM EST 09/21/2016 1:51 PM EST Alirio Esparza MD POINT OF CARE TEST ORDERABLES Performing Organization Address [facility] Co de Phone Number [facility] [place] [address] * POCT Glucose (09/21/2016 12:54 PM EST) Glucose, POC 128 65 - 199 mg/dL [facility] Comment: Supplemental ranges: <140 mg/dL before meals <180 mg/dL all other times of the day Blood specimen (specimen) 09/21/2016 12:54 PM EST 09/21/2016 12:54 PM EST Alirio Esparza MD POINT OF CARE TEST ORDERABLES Performing Organization Address City/[facility] Co de Phone Number [facility] [place] [address] * EKG 12 Lead (09/21/2016 12:26 PM EST) Ventricular rate 87 BPM MUSE SYSTEM Atrial Rate 87 BPM MUSE SYSTEM P-R Interval 256 ms MUSE SYSTEM QRS Duration 90 ms MUSE SYSTEM Q-T Interval 406 ms MUSE SYSTEM QTC Calculated (Bezet) 488 ms MUSE SYSTEM Calculated P Aurora 24 degrees MUSE SYSTEM Calculated R Aurora 21 degrees MUSE SYSTEM Calculated T Aurora -5 degrees MUSE SYSTEM INTERPRETATION Sinus rhythm [...] course of the esophagus and below the [id number]. There is a right IJ PA catheter [...] the course of theesophagus and below the [id number]. There is a right IJ PA catheter [...] EST) pH, Arterial 7.41 7.35 - 7.45 [facility] PCO2, Arterial 42 35 - 45 mmHg [facility] PO2, Arterial 356(H) 85 - 104 mmHg [facility] Bicarbonate, Arterial 26.2(H) 20.0 - 26.0 mmol/L [facility] Base Excess, Arterial 1.6 -3.0 - 3.0 mmol/L [facility] Hgb Blood Gas 10.7(L) 11.7 - 15.5 gm/dL [facility] Oxyhemoglobin, Arterial 98.1(H) 94.0 - 97.0 % [facility] Carboxyhemoglob in, Arterial 0.3 % [facility] Comment: Nonsmokers: 0.5-1.5% COHB Smokers: Variable, but usually less than 10% Toxic: 20-30% COHB Lethal: Greater than 60% COHB Methemoglobin, Arterial 0.8 <=1.5 % [facility] Na Whole Blood 140 [...] [facility] FIO2 Art 100 % [facility] PF Ratio Art 356 [facility] Blood specimen (specimen) 09/21/2016 12:20 PM EST 09/21/2016 12:20 PM EST Alirio Esparza MD POINT OF CARE TEST ORDERABLES Performing Organization Address City/State/[facility] Co de Phone Number [facility] [place] [address] * (ABNORMAL) BLOOD GAS 2 ARTERIAL (09/21/2016 10:54 AM EST) pH, Arterial 7.43 7.35 - 7.45 [facility] PCO2, Arterial 40 35 - 45 mmHg [facility] PO2, Arterial 297(H) 85 - 104 mmHg [facility] Bicarbonate, Arterial 26.0 20.0 - 26.0 mmol/L [facility] Base Excess, Arterial 1.6 -3.0 - 3.0 mmol/L [facility] Hgb Blood Gas 8.6(L) 11.7 - 15.5 gm/dL [facility] Oxyhemoglobin, Arterial 98.6(H) 94.0 - 97.0 % [facility] Carboxyhemoglob in, Arterial 0.5 % [facility] Comment: Nonsmokers: 0.5-1.5% COHB Smokers: Variable, but usually less than 10% Toxic: 20-30% COHB Lethal: Greater than 60% COHB Methemoglobin, Arterial 0.3 <=1.5 % [facility] Na Whole Blood 134(L) [...] [facility] FIO2 Art 95 % [facility] Flow Art 0.7 LPM [facility] PF Ratio Art 313 [facility] Temp Art 36.7 Celsius [facility] Blood specimen (specimen) 09/21/2016 10:54 AM EST 09/21/2016 10:54 AM EST Alirio Esparza MD POINT OF CARE TEST ORDERABLES Performing Organization Address City/[facility] Co de Phone Number [facility] [place] [address] * Thrombin time (09/21/2016 10:50 AM EST) [...] HEMATOLOGY ORDERABLE S Performing Organization Address City/[facility]/ZIP Co de Phone Number [facility] [place] [address] * Fibrinogen (09/21/2016 10:50 AM EST) Fibrinogen [...] ORDERABLE S Performing Organization Address [facility] Co de Phone Number [facility] [place] [address] * APTT (09/21/2016 10:50 AM EST) Partial Thromboplastin Time 32 25 - 35 sec [facility] ORDERABLE S Performing Organization Address [facility] Co de Phone Number [facility] [place] [address] * (ABNORMAL) Prothrombin Time (09/21/2016 10:50 AM EST) Prothrombin Time 18.7(H) 12.0 - 15.0 sec [facility] International Normalization Ratio 1.5(H) 0.9 - 1.1 [facility] Blood specimen (specimen) 09/21/2016 10:50 AM EST 09/21/2016 10:56 AM EST Narrative Resulting Agency Comment Spec In Lab Luis Enrique Quarles MD HEMATOLOGY ORDERABLE S [facility] [place] [address] * (ABNORMAL) Hemogram (09/21/2016 10:50 AM EST) White Blood Cell 14.7(H) 4.0 - 9.5 x10(3)/mc L [facility] Red Blood Cell 2.40(L) 4.00 - 5.21 x10(6)/mc L [facility] Hemoglobin 7.9(L) 11.7 - 15.5 gm/dL [facility] Hematocrit 23.2(L) 35.7 - 45.8 % [facility] Comment: This result has been called to MICHELLE GRIGSBY by ASHU MORENO on 09 21 2016 at 1102, and has been read back. Mean Cell Volume 96.7(H) 82.6 - 94.4 fL [facility] Mean Cell Hemoglobin 32.9(H) 27.1 - 32.0 pg [facility] Mean Cell Hemoglobin Concentration 34.1 31.7 - 35.0 gm/dL [facility] Platelet 117(L) 145 - 357 x10(3)/mc L [facility] RDW Standard Deviation 42.6 37.0 - 46.0 fL [facility] RDW coefficient of variation 12.1 11.5 - 14.1 % [facility] Mean Platelet Volume 9.2 7.6 - 12.9 fL [facility] NRBC% auto 0.1 % [facility] NRBC Absolute 0.020(H) 0.000 - 0.000 x10(3)/mc L [facility] Blood specimen (specimen) 09/21/2016 10:50 AM EST 09/21/2016 10:56 AM EST Narrative Resulting Agency Comment Spec In Lab Luis Enrique Quarles MD HEMATOLOGY ORDERABLE S Performing Organization Address [facility] [place] [address] * Prepare Platelets, Apheresis (09/21/2016 10:30 AM EST) Pathologist [facility] Dispensed? Yes [facility] Blood specimen (specimen) 09/21/2016 10:30 AM EST 09/21/2016 10:28 AM EST Alirio Esparza MD BLOOD BANK PRODUCT ORDERABLES Performing Organization Address [facility] de Phone Number [facility] [place] [address] * (ABNORMAL) BLOOD GAS 2 ARTERIAL (09/21/2016 10:05 AM EST) pH, Arterial 7.33(L) 7.35 - 7.45 [facility] PCO2, Arterial 54(Critic al) 35 - 45 mmHg [facility] Comment:Noted by nautical instrument mechanic. PO2, Arterial 218(H) 85 - 104 mmHg [facility] Bicarbonate, Arterial 27.9(H) 20.0 - 26.0 mmol/L [facility] Base Excess, Arterial 2.0 -3.0 - 3.0 mmol/L [facility] Hgb Blood Gas 8.6(L) 11.7 - 15.5 gm/dL [facility] Oxyhemoglobin, Arterial 98.4(H) 94.0 - 97.0 % [facility] Carboxyhemoglo bin, Arterial 0.5 % [facility] Comment: Nonsmokers: 0.5-1.5% COHB Smokers: Variable, but usually less than 10% Toxic: 20-30% COHB Lethal: Greater than 60% COHB Methemoglobin, Arterial 0.3 <=1.5 % [facility] Na Whole Blood 129(L) 135 - 145 mmol/L [facility] K Whole Blood 6.2(Criti gabrielle) 3.5 - 5.0 mmol/L [facility] Comment: Noted by nautical instrument mechanic. Please note: Patients with WBC >100,000 may [...] [facility] Temp Art 37.0 Celsius [facility] Blood specimen (specimen) 09/21/2016 10:05 AM EST 09/21/2016 10:05 AM EST Alirio Esparza MD POINT OF CARE TEST ORDERABLES [facility] [place] [address] * (ABNORMAL) BLOOD GAS 2 ARTERIAL (09/21/2016 9:44 AM EST) pH, Arterial 7.22(Criti gabrielle) 7.35 - 7.45 [facility] Comment:Noted by nautical instrument mechanic. PCO2, Arterial 70(Critica l) 35 - 45 mmHg [facility] Comment:Noted by nautical instrument mechanic. PO2, Arterial 224(H) 85 - 104 mmHg [facility] Bicarbonate, Arterial 27.8(H) 20.0 - 26.0 mmol/L [facility] Base Excess, Arterial 0.0 -3.0 - 3.0 mmol/L [facility] Hgb Blood Gas 8.7(L) 11.7 - 15.5 gm/dL [facility] Oxyhemoglobin, Arterial 98.5(H) 94.0 - 97.0 % [facility] Carboxyhemoglob in, Arterial 0.6 % [facility] Comment: Nonsmokers: 0.5-1.5% COHB Smokers: Variable, but usually less than 10% Toxic: 20-30% COHB Lethal: Greater than 60% COHB Methemoglobin, Arterial 0.3 <=1.5 % [facility] Na Whole Blood 131(L) [...] Esparza MD POINT OF CARE TEST ORDERABLES [facility] [place] [address] * (ABNORMAL) Hemoglobin (09/21/2016 9:42 AM EST) Hemoglobin 7.2(L) 11.7 - 15.5 gm/dL [facility] Blood specimen (specimen) 09/21/2016 9:42 AM EST 09/21/2016 9:51 AM EST Narrative Resulting Agency Comment Spec In Lab Alirio Esparza MD HEMATOLOGY ORDERABL ES Performing Organization Address City/[facility] Co de Phone Number [facility] [place] [address] * Platelet count (09/21/2016 9:42 AM EST) Platelet 159 145 - 357 x10(3)/mc L [facility] Immature Plt % 1.6 0.0 - 7.4 % [facility] Comment: Limitation of the Immature Platelet Fraction (IPF)-May be less reliable when the platelet count is less than 63u253/uL due to statistical imprecision. The IPF value [...] in a decreased state of production. References: [employer] The Clinical Value of the Immature Platelet Fraction (IPF) in Cell Recovery Document Number [id number] 12/2010 [employer] The Role of the Immature Platelet Fraction (IPF) in the Differential Diagnosis of Thrombocytopenia, Document [id number] V05/07/15 P05/14 Blood specimen (specimen) 09/21/2016 9:42 AM EST 09/21/2016 9:51 AM EST Narrative Resulting Agency Comment Spec In Lab Alirio Esparza MD HEMATOLOGY ORDERABL ES Performing Organization Address [facility] Co de Phone Number [facility] [place] [address] * (ABNORMAL) Hematocrit (09/21/2016 9:42 AM EST) [...] MD HEMATOLOGY ORDERABL ES Performing Organization Address City/[facility] Co de Phone Number [facility] [place] [address] * Fibrinogen (09/21/2016 9:42 AM EST) Pathologist [facility] Fibrinogen 219 180 - 510 mg/dL [facility] [...] MD HEMATOLOGY ORDERABL ES Performing Organization Address City/[facility] Co de Phone Number [facility] [place] [address] * (ABNORMAL) BLOOD GAS 2 ARTERIAL (09/21/2016 9:10 AM EST) pH, Arterial 7.36 7.35 - 7.45 [facility] PCO2, Arterial 48(H) 35 - 45 mmHg [facility] PO2, Arterial 295(H) 85 - 104 mmHg [facility] Bicarbonate, Arterial 26.0 20.0 - 26.0 mmol/L [facility] Base Excess, Arterial 0.5 -3.0 - 3.0 mmol/L [facility] Hgb Blood Gas 8.0(L) 11.7 - 15.5 gm/dL [facility] Oxyhemoglobin, Arterial 98.3(H) 94.0 - 97.0 % [facility] Carboxyhemoglob in, Arterial 1.0 % [facility] Comment: Nonsmokers: 0.5-1.5% COHB Smokers: Variable, but usually less than 10% Toxic: 20-30% COHB Lethal: Greater than 60% COHB Methemoglobin, Arterial 0.3 <=1.5 % [facility] Na Whole Blood 135 [...] [facility] Temp Art 37.0 Celsius [facility] Blood specimen (specimen) 09/21/2016 9:10 AM EST 09/21/2016 9:10 AM EST Alirio Esparza MD POINT OF CARE TEST ORDERABLES [facility] [place] [address] * Surgical Pathology Report (09/21/2016 9:09 AM EST) Final Diagnosis [id number] ?Location: 3T The signing pathologist has (i) [...] 9:32 AM EST [facility] AORTIC STRUCTURE / Unknown 09/21/2016 9:09 AM EST 09/21/2016 9:09 AM EST Alirio Esparza MD PATHOLOGY/CYTOLOGY ORDERABLES Performing Organization Address City/State/[facility] Co de Phone Number [facility] [place] [address] * Specimen to Pathology (surgical or derm) (09/21/2016 9:09 AM EST) AP Specimen 09/21/2016 9:09 AM EST 09/21/2016 9:09 AM EST Narrative [facility] - 09/21/2016 9:09 AM EST Specimen requisition ordered. ??Separate Pathology report to follow Alirio Esparza MD PATHOLOGY/CYTOLOGY ORDERABLES [facility] [place] [address] * (ABNORMAL) BLOOD GAS 2 ARTERIAL (09/21/2016 8:50 AM EST) pH, Arterial 7.41 7.35 - 7.45 [facility] PCO2, Arterial 33(L) 35 - 45 mmHg [facility] PO2, Arterial 348(H) 85 - 104 mmHg [facility] Bicarbonate, Arterial 20.6 20.0 - 26.0 mmol/L [facility] Base Excess, Arterial -4.1(L) -3.0 - 3.0 mmol/L [facility] Hgb Blood Gas 9.5(L) 11.7 - 15.5 gm/dL [facility] Oxyhemoglobin, Arterial 98.8(H) 94.0 - 97.0 % [facility] Carboxyhemoglob in, Arterial 0.3 % [facility] Comment: Nonsmokers: 0.5-1.5% COHB Smokers: Variable, but usually less than 10% Toxic: 20-30% COHB Lethal: Greater than 60% COHB Methemoglobin, Arterial 0.3 <=1.5 % [facility] Na Whole Blood 137 [...] Esparza MD POINT OF CARE TEST ORDERABLES [facility] [place] [address] * (ABNORMAL) BLOOD GAS 2 ARTERIAL (09/21/2016 8:18 AM EST) pH, Arterial 7.42 7.35 - 7.45 [facility] PCO2, Arterial 36 35 - 45 mmHg [facility] PO2, Arterial 283(H) 85 - 104 mmHg [facility] Bicarbonate, Arterial 22.8 20.0 - 26.0 mmol/L [facility] Base Excess, Arterial -2.0 -3.0 - 3.0 mmol/L [facility] Hgb Blood Gas 12.6 11.7 - 15.5 gm/dL [facility] Oxyhemoglobin, Arterial 99.0(H) 94.0 - 97.0 % [facility] Carboxyhemoglob in, Arterial 0.6 % [facility] Comment: Nonsmokers: 0.5-1.5% COHB Smokers: Variable, but usually less than 10% Toxic: 20-30% COHB Lethal: Greater than 60% COHB Methemoglobin, Arterial 0.0 <=1.5 % [facility] Na Whole Blood 144 [...] [facility] FIO2 Art 95 % [facility] Flow Art 1.1 LPM [facility] PF Ratio Art 298 [facility] Temp Art 35.6 Celsius [facility] Blood specimen (specimen) 09/21/2016 8:18 AM EST 09/21/2016 8:18 AM EST Alirio Esparza MD POINT OF CARE TEST ORDERABLES Performing Organization Address [facility]/ZIP Co de Phone Number [facility] [place] [address] * Prepare RBC (09/21/2016 7:05 AM EST) Pathologist [facility] Dispensed? Yes [facility] Blood specimen (specimen) 09/21/2016 7:05 AM EST 09/21/2016 7:02 AM EST Alirio Esparza MD BLOOD BANK PRODUCT ORDERABLES Performing Organization Address [facility] Co de Phone Number [facility] [place] [address] * POCT Glucose (09/21/2016 6:42 AM EST) Pathologist [facility] Glucose, POC [phone] - 199 mg/dL [facility] Comment: Supplemental ranges: <140 mg/dL before meals <180 mg/dL all other times of the day Blood specimen (specimen) 09/21/2016 6:42 AM EST 09/21/2016 6:42 AM EST Alirio Esparza MD POINT OF CARE TEST ORDERABLES Performing Organization Address City/[facility] Co de Phone Number [facility] [place] [address] documented in this encounter Visit Diagnoses Diagnosis [...] dose on Wed09/21/16 at 1230, Until Discontinued, [place] teeth, Routine Given 09/25/2016 9:40 AM EST [...] if phenyleprine and/or vasopressin ineffective.Call pager # [phone] if initiated., Routine Rate/Dose Change 09/21/2016 2:27 [...] 2.0 L/min/M2. Maximum volume 2 L. Call fun house attendant for additional fluid orders: pager #[phone]. Rate/Dose Verify 09/22/2016 10:00 AM EST 10 [...] (Due - Provider: Kendall Martínez [facility]) aspirin chewable tablet 81 mg(Linked [...] dose on Wed09/21/16 at 1230, Until Discontinued, [place] teeth, Routine 0900 (Not Given - Provider: [...] Routine documented in this encounter Care Teams Book Salesman Relationship Specialty Start Date End Date Deborah Quiroga APRN PCP - General Family Medicine 03/24/16 02/04/23 documented as of this encounter
--- OUTSIDE RECORDS SUMMARY | 2024-05-25 14:13 | XMS_ITS | Encounter Summary ---
Author Organization [facility] Address [facility] [place] [address] Care Team Providers Care Staff Development Coordinator Name Role Phone Ashley Quirogan Cornelius ANURAG Primary Care Provider [phone] Encounter Details Date Type Department Care Team (Late st Contact Info) Description 08/11/2016 Telephone Hematology [place] [phone] Markel Borjas MD [facility] DR HEMATOLOGY [place] [address] Social History Tobacco Use Types Packs/Day Years [...] 10:00 AM EDT Office Visit Rheumatology at [place] [phone] Magdalena Peralta MD [facility] [place] [address] 06/05/2024 2:00 PM EST Hospital Encounter Outpatient Surgery Center [place] [phone] Markel Borjas MD [facility] DR HEMATOLOGY [place] [address] 06/05/2024 2:00 PM EST - 06/05/2024 3:00 PM EST Surgery Outpatient [place] [phone] Markel Borjas MD [facility] DR HEMATOLOGY [place] [address] (OSC MSURG) BONE MARROW BIOPSY AND ASPIRATION; DIAGNOSTIC (WRVU 1.44) 06/23/2024 2:00 PM EST Office Visit Hematology [place] [phone] Markel Borjas MD [facility] DR HEMATOLOGY [place] [address] 03/01/2025 4:15 PM EDT Office Visit Dermatology at [address] [place] [phone] Marek Bonilla MD [address], [place] [address] Scheduled Procedures Name Priority Associated Diagnoses Date/Ti me (OSC MSURG) BONE MARROW BIOPSY AND ASPIRATION; DIAGNOSTIC (WRVU 1.44) Anemia, in pt with longstanding neutropenia 06/05/2024 2:00 PM EST documented as of this encounter Visit Diagnoses Not on filedocumented in this encounter Care Teams Staff Development Coordinator Relationship Specialty Start Date End Date Deborah Quiroga, COMMUNICATIONS EQUIPMENT SUPERVISOR PCP - General Family Medicine 03/24/16 02/04/23 documented as of this encounter
--- OUTSIDE RECORDS SUMMARY | 2024-05-25 14:13 | XMS_ITS | Encounter Summary ---
Author Organization Formerly [facility], [facility] Address [facility] [place] [address] Care Team Providers Care Supervisor Sanding Name Role Phone Deborah Quiroga APRN Primary Care Provider [phone] Encounter Details Date Type Department Care Team (Late st Contact Info) Description 08/18/2016 Orders Only Cardiac Surgery at [place] [phone] Alirio Esparza MD Aortic valve stenosis, unspecified [...] 10:00 AM EDT Office Visit Rheumatology at [place] [phone] Magdalena Peralta MD [facility] [place] [address] 06/05/2024 2:00 PM EST Hospital Encounter Outpatient Surgery Center [place] [phone] Markel Borjas MD [facility] HEMATOLOGY [place] [address] 06/05/2024 2:00 PM EST - 06/05/2024 3:00 PM EST Surgery Outpatient [place] [phone] Markel Borjas MD [facility] DR HEMATOLOGY [place] [address] (OSC MSURG) BONE MARROW BIOPSY AND ASPIRATION; DIAGNOSTIC (WRVU 1.44) 06/23/2024 2:00 PM EST Office Visit Hematology [place] [phone] Markel Borjas MD [facility] DR HEMATOLOGY [place] [address] 03/01/2025 4:15 PM EDT Office Visit Dermatology at [place] [address] [place] [phone] Marek Bonilla MD [address], [place] A DERMATOLOGY [place], [place] [phone] Scheduled Procedures Name Priority Associated Diagnoses Date/Ti me (OSC MSURG) BONE MARROW BIOPSY AND ASPIRATION; DIAGNOSTIC (WRVU 1.44) Anemia, in pt with longstanding neutropenia 06/05/2024 2:00 PM EST documented as of this encounter Results * Basic Metabolic Panel (non-fasting) (08/18/2016 4:50 PM EST) Pathologist [facility] Glucose 82 65 - 199 mg/dL [facility] [...] the following links into your internet browser. [email or web address] Blood specimen (specimen) 08/18/2016 4:50 PM EST 08/18/2016 5:03 PM EST Narrative Resulting Agency Comment Spec In Lab Alirio Esparza MD CHEMISTRY ORDERABLE S [facility] [place] [address] documented in this encounter Visit Diagnoses Diagnosis Aortic valve stenosis, unspecified etiology documented in this encounter Care Teams Supervisor Sanding Relationship Specialty Start Date End Date Deborah Quiroga APRN PCP - General Family Medicine 03/24/16 02/04/23 documented as of this encounter
--- OUTSIDE RECORDS SUMMARY | 2024-05-25 14:14 | XMS_ITS | Encounter Summary ---
Author Organization [facility] [place] [address] Care Team Providers Care Assembler Trim Name Role Phone Deborah Quiroga ANURAG Primary Care Provider [phone] Encounter Details Date Type Department Care Team (Late st Contact Info) Description 07/03/2016 External Results Hematology [place] [phone] Matthew Cervantes, DO [address] [place] [phone] Social History Tobacco Use Types Packs/Day Years [...] 10:00 AM EDT Office [place] [phone] Magdalena Peralta MD [facility] [place] [address] 06/05/2024 2:00 PM EST Hospital Encounter Outpatient [place] [address] Markel Borjas MD [facility] [place]Y [place] [address] 06/05/2024 2:00 PM EST - 06/05/2024 3:00 PM EST Surgery Outpatient [place] [address] Markel Borjas MD [facility] DR HEMAT[place]Y [place] [address] (OSC MSURG) BONE MARROW BIOPSY AND ASPIRATION; DIAGNOSTIC (WRVU 1.44) 06/23/2024 2:00 PM EST Office Visit [place]ematology [place] [phone] Markel Borjas MD [facility] [place]EMATOLOGY [place] [address] 03/01/2025 4:15 PM EDT Office Visit Dermatology at [place] [address] [place] [address] Marek Bonilla MD [address], [place] [address] Scheduled Procedures Name Priority Associated Diagnoses Date/Ti [...] filedocumented in this encounter Care Teams Assembler Trim Relationship Specialty Start Date End Date Deborah Quiroga, DISPATCH LEAD PCP - General Family Medicine 03/24/16 02/04/23 documented as of this encounter
--- OUTSIDE RECORDS SUMMARY | 2024-05-25 14:14 | XMS_ITS | Encounter Summary ---
Author Organization [facility] Address [facility] [place] [address] Care Team Providers Care Utility Clerk Name Role Phone Deborah Quiroga APRN Primary Care Provider [phone] Encounter Details Date Type Department Care Team (Late st Contact Info) Description 06/16/2016 Orders Only Hematology [place] [phone] Nitesh Pina Jr., MD [facility] DR [place] [address] Cyclical neutropenia Social History Tobacco Use Types [...] 10:00 AM EDT Office [place] [phone] Magdalena Peralta MD [facility] [place] [address] 06/05/2024 2:00 PM EST Hospital Encounter Outpatient [place] [address] Markel Borjas MD [facility] [place] [address] 06/05/2024 2:00 PM EST - 06/05/2024 3:00 PM EST Surgery [place]patient [place] [address] Markel Borjas MD [facility] DR [place] [address] (OSC MSURG) BONE MARROW BIOPSY AND ASPIRATION; DIAGNOSTIC (WRVU 1.44) 06/23/2024 2:00 PM EST Office Visit [place] [phone] Markel Borjas MD [facility] DR [place] [address] 03/01/2025 4:15 PM EDT Office Visit Dermatology at [place] [address] [place] [phone] Marek Bonilla MD [address], [place] [address] Scheduled Procedures Name Priority Associated Diagnoses Date/Ti me (OSC MSURG) BONE MARROW BIOPSY AND ASPIRATION; DIAGNOSTIC (WRVU 1.44) Anemia, in pt with longstanding neutropenia 06/05/2024 2:00 PM EST documented as of this encounter Visit Diagnoses Diagnosis Cyclical neutropenia Cyclic neutropenia documented in this encounter Care Teams Utility Clerk Relationship Specialty Start Date End Date Deborah Quiroga APRN PCP - General Family Medicine 03/24/16 02/04/23 documented as of this encounter
--- OUTSIDE RECORDS SUMMARY | 2024-05-25 14:14 | XMS_ITS | Encounter Summary ---
Author Organization [facility] Address [facility] [place] [address] Care Team Providers Care Assistant Media Buyer Name Role Phone Junaid, Deborah Shields APRN Primary Care Provider [phone] Reason for Visit * Auth/Cert Specialty Diagnoses / Procedures Referred By Crispin t Referred To Contact Diagnoses AVS Procedures CARDIAC CATHETERIZATION Referral ID Status Reason Start Date Expiration Date Visits Re quested Visits Authorized [id number] 1 1 Encounter Details Date Type Department Care Team (Late st Contact Info) Description 06/03/2016 7:30 AM EDT - 06/03/2016 8:30 AM [place] [phone] Mario Alberto Escobedo MD [facility] [place] [address] CARDIAC CATHETERIZATION Social History Tobacco Use Types [...] by your doctor, do not take any qdnt-per-zhvoqdn medicinesor herbal preparations without first discussing this with your doctor or pharmacist. There is the possibility of side effects and interactions when these are combined. Follow Up Care Who to call with questions or problems If there are any questions or problems that you think might be related to your cardiac cath or angioplasty, contact the gullet slitter admissions supervisor by calling [facility] at . * Patient Instructions* Felicia Corrigan - 06/03/2016 9:33 AM EDT Cardiology Instructions Call your doctor if: Chest pain, dyspnea, pain or swelling in legs occurs. If you have non-emergent questions between now and the time of your follow up appointments: -During 8am-5pm Wednesday through Wednesday call [phone] to speak with a nurse in the cardiology clinic -All other times call [phone] and ask to speak to the board certified music therapist admissions supervisor. MEDICATIONS - restart your spironolactone, discontinue [...] Appointments: Primary care provider: Cardiology: Deborah Hahn, NARCOTICS AND VICE DETECTIVE [phone] Follow up as planned or as needed. Dr. Esparza [phone] Other follow-up appointment: Hematology - Dr. Mario [...] 10:00 AM EDT Office Visit Rheumatology at [place] [phone] Magdalena Peralta MD [facility] [place] [address] 06/05/2024 2:00 PM EST Hospital Encounter [place]patient [place] [address] Markel Borjas MD [facility] DR HEMATOLOGY [place] [address] 06/05/2024 2:00 PM EST - 06/05/2024 3:00 PM EST Surgery [place] [phone] Markel Borjas MD [facility] DR HEMATOLOGY [place] [address] (OSC MSURG) BONE MARROW BIOPSY AND ASPIRATION; DIAGNOSTIC (WRVU 1.44) 06/23/2024 2:00 PM EST Office Visit Hematology [place] [address] Markel Borjas MD [facility] DR HEMATOLOGY [place] [address] 03/01/2025 4:15 PM EDT Office Visit Dermatology at [place] [address] [place] [address] Marek Bonilla MD [address], [place] [address] Scheduled Procedures Name Priority Associated Diagnoses Date/Ti [...] CHEMISTRY ORDERABLES Performing Organization Address [facility] Co de Phone Number [facility] [place] [address] * Methylmalonic acid, serum (06/03/2016 11:45 AM EDT) [facility] Methylmalonic Acid (NOVEMBER) 0.21 <=0.40 nmol/mL [facility] Comment: Test Performed by: [place] [address] Customer Advisor: Raymond Chaudhry II, M.D., Ph.D. Blood specimen (specimen) 06/03/2016 11:45 AM EDT 06/03/2016 1:57 PM EDT Narrative Resulting Agency Comment Spec In Lab Mario Alberto Escobedo MD LAB SEND OUT ORDERAB LES Performing Organization Address [facility] Co de Phone Number [facility] [place] [address] * Granulocyte Antibody (06/03/2016 11:45 AM EDT) [facility] Granulocyte Ab (NOVEMBER) Negative Not Applicable [facility] Comment: ADDITIONAL INFORMATION Method: Immunofluorescent Assay Performing Laboratory CLIA# [id number] This test was developed and its performance characteristics determined by [facility] in a manner consistent with CLIA requirements. This test has not been cleared or approved by the U.S. Food and Drug Administration. Test Performed by: [address] [address] Customer Advisor: Raymond Chaudhry II, M.D., Ph.D. Blood specimen (specimen) 06/03/2016 11:45 AM EDT 06/03/2016 1:57 PM EDT Narrative Resulting Agency Comment Spec In Lab Mario Alberto Escobedo MD LAB SEND OUT ORDERAB LES Performing Organization Address [facility] Co de Phone Number [facility] [place] [address] * TSH (06/03/2016 11:45 AM EDT) Thyroid Stimulating Hormone 2.18 0.27 - 4.20 mcIU/mL [facility] Blood specimen (specimen) 06/03/2016 11:45 AM EDT 06/03/2016 12:11 PM EDT Narrative Resulting Agency Comment Spec In Lab Mario Alberto Escobedo MD CHEMISTRY ORDERABLES Performing Organization Address [facility] de Phone Number [facility] [place] [address] * Homocysteine Total, Plasma (06/03/2016 11:45 AM EDT) Homocystine 9 <=15 mcmol/L [facility] Blood specimen (specimen) 06/03/2016 11:45 AM EDT 06/03/2016 12:11 PM EDT Narrative Resulting Agency Comment Spec In Lab Mario Alberto Escobedo MD CHEMISTRY ORDERABLES Performing Organization Address [facility] Co de Phone Number [facility] [place] [address] * Folate, serum (06/03/2016 11:45 AM EDT) Folate >20.0 4.8 - 24.2 ng/mL [facility] Blood specimen (specimen) 06/03/2016 11:45 AM EDT 06/03/2016 12:04 PM EDT Narrative Resulting Agency Comment Spec In Lab Mario Alberto Escobedo MD CHEMISTRY ORDERABLES Performing Organization Address City/[facility]/ZIP Co de Phone Number [facility] [place] [address] * (ABNORMAL) Sedimentation rate (06/03/2016 11:45 AM EDT) Sedimentation Rate Automated 41(H) 0 - 20 mm/hr [facility] Blood specimen (specimen) 06/03/2016 11:45 AM EDT 06/03/2016 12:04 PM EDT Narrative Resulting Agency Comment Spec In Lab Mario Alberto Escobedo MD HEMATOLOGY ORDERABLE S Performing Organization Address [facility]/ZIP Co de Phone Number [facility] [place] [address] * Lactate Dehydrogenase (06/03/2016 11:45 AM EDT) [facility] Lactate Dehydrogenase 164 110 - 220 unit/L [facility] Blood specimen (specimen) 06/03/2016 11:45 AM EDT 06/03/2016 12:11 PM EDT Narrative Resulting Agency Comment Spec In Lab Mario Alberto Escobedo MD CHEMISTRY ORDERABLES Performing Organization Address [facility]/ZIP Co de Phone Number [facility] [place] [address] * Comprehensive metabolic panel (non-fasting) (06/03/2016 11:45 [...] the following links into your internet browser. [email or web address] Blood specimen (specimen) 06/03/2016 11:45 AM EDT 06/03/2016 12:11 PM EDT Narrative Resulting Agency Comment Spec In Lab Mario Alberto Escobedo MD CHEMISTRY ORDERABLES Performing Organization Address City/State/[facility] Co de Phone Number [facility] [place] [address] documented in this encounter Visit Diagnoses Diagnosis [...] Routine 06 (Given - Provid er: Alie Madrid RN) midazolam (PF) (VERSED) 1 mg/mL multi-dose injection (CANCELED) ONCE PRN, Starting on Wed06/03/16 at 0853, Until Wed06/03/16 at 0917, Cath (Intra-Procedure), Routine 08 (Given - Provid er: Alirio Hernandez) verapamil (ISOPTIN) injection (CANCELED) ONCE PRN, Starting on Wed06/03/16 at 0853, Until Wed06/03/16 at 0917, Administer over 2 Minutes, Cath (Intra-Procedure) 0853 (Given - Provid er: Alirio Heranndez) documented in this encounter Care Teams Assistant Media Buyer Relationship Specialty Start Date End Date Deborah Quiroga, NARCOTICS AND VICE DETECTIVE PCP - General Family Medicine 03/24/16 02/04/23 documented as of this encounter
--- OUTSIDE RECORDS SUMMARY | 2024-05-25 14:14 | XMS_ITS | Encounter Summary ---
Author Organization [facility] Address [facility] [place] [address] Care Team Providers Care Radiation Control Worker Name Role Phone Deborah Quiroga APRN Primary Care Provider [phone] Encounter Details Date Type Department Care Team (Late st Contact Info) Description 05/22/2016 Orders Only Cardiology at [address] [address] Chele [facility] PA [facility] [place] [address] Aortic valve stenosis, unspecified etiology Social History [...] 10:00 AM EDT Office [place] [address] Magdalena Peralta MD [facility] [place] [address] 06/05/2024 2:00 PM EST Hospital Encounter [place]patient [place] [address] Markel Borjas MD [facility] DR HEMATOLOGY [place] [address] 06/05/2024 2:00 PM EST - 06/05/2024 3:00 PM EST Surgery Outpatient [place] [phone] Markel Borjas MD [facility] DR HEMATOLOGY [place] [address] (OSC MSURG) BONE MARROW BIOPSY AND ASPIRATION; DIAGNOSTIC (WRVU 1.44) 06/23/2024 2:00 PM EST Office Visit Hematology [place] [address] Markel Borjas MD [facility] DR HEMATOLOGY [place] [address] 03/01/2025 4:15 PM EDT Office Visit Dermatology at [place] [address] [place] [address] Marek Bonilla MD [address], [place] [address] Scheduled Procedures Name Priority Associated Diagnoses Date/Ti [...] Modality Other Narrative 06/03/2016 10:13 AM EDT ?[facility] ? Cardiac Catheterization/Intervention Report ? Patient Name: Kirstie, Purnima M. ? Procedure Date: 06/03/2016 ? A #: [id number] ? Primary Physician: Nitesh Escobedo ? Case #: [id number] ? File Name: [id number] ? Catheterization Order Number: [id number] ? [facility] ? Final Report [place], [place] ? Patient Name: ? Purnima M. Kirstie ? ID#: ?[id number] ? : ?1955 ? Procedure Date: ? June 03, 2016 ? Case #: ? [id number] ? Room: ? 1 ? Case Physician: [...] no angina (w/i 14 days). Citizen Of [place] ?Cardiovascular Society angina class was 0. This [...] Procedure Note Nitesh Escobedo MD - 09/21/2016 [facility] Cardiac Catheterization/Intervention Report Patient Name: KirstiePurnima Procedure Date: 06/03/2016 A #: [id number] Primary Physician: Nitesh Escobedo Case #: [id number] File Name: [id number] Catheterization Order Number: [id number] [facility] FinalReport [place], [place] Patient Name: Purnima Thacker ID#:[id number] :1955 Procedure Date: June 03, 2016 Case [...] symptom, no angina (w/i 14 days).Citizen Of [place] Cardiovascular Society angina class was 0. This [...] etiology documented in this encounter Care Teams Radiation Control Worker Relationship Specialty Start Date End Date Deborah Quiroga, DIRECTOR WOMEN PCP - General Family Medicine 03/24/16 02/04/23 documented as of this encounter
--- OUTSIDE RECORDS SUMMARY | 2024-05-25 14:14 | XMS_ITS | Encounter Summary ---
Author Organization [facility] Address [facility] [place] [address] Care Team Providers Care Car Repossessor Name Role Phone Deborah Quiroga APRN Primary Care Provider [phone] Encounter Details Date Type Department Care Team (Late st Contact Info) Description 06/09/2016 Orders Only Hematology [place] [phone] Nitesh Pina Jr., MD [facility] [address] [place] [address] Cyclical neutropenia Social History Tobacco Use Types [...] 10:00 AM EDT Office [place] [address] Magdalena Peralta MD [facility] [place] [address] 06/05/2024 2:00 PM EST Hospital Encounter Outpatient [place] [address] Markel Borjas MD [facility] [place] [address] 06/05/2024 2:00 PM EST - 06/05/2024 3:00 PM EST Surgery Outpatient [place] [address] Markel Borjas MD [facility] [place] [address] (OSC MSURG) BONE MARROW BIOPSY AND ASPIRATION; DIAGNOSTIC (WRVU 1.44) 06/23/2024 2:00 PM EST Office Visit Hematology [place] [phone] Markel Borjas MD [facility] [address] [place] [address] 03/01/2025 4:15 PM EDT Office Visit Dermatology at [place] [address] [place] [address] Marek Bonilla MD [address] [facility] [place] [address] Scheduled Procedures Name Priority Associated Diagnoses Date/Ti me (OSC MSURG) BONE MARROW BIOPSY AND ASPIRATION; DIAGNOSTIC (WRVU 1.44) Anemia, in pt with longstanding neutropenia 06/05/2024 2:00 PM EST documented as of this encounter Results * Immunophenotyping Flow Cytometry (06/09/2016 4:53 PM EST) Immunophenotyping Flow See Comment [facility] Comment: When completed by the Pathologist, the Flow Cytometry Report ([id number]) will display under the Pathology Results section within eD. Specimen of unknown material (specimen) 06/09/2016 4:53 PM EST 06/09/2016 5:00 PM EST Narrative Resulting Agency Comment Spec In Lab Nitesh Pina Jr., MD HEMATOLOGY ORDERABLE S [facility] [place] [address] documented in this encounter Visit Diagnoses Diagnosis Cyclical neutropenia Cyclic neutropenia documented in this encounter Care Teams Car Repossessor Relationship Specialty Start Date End Date Deborah Quiroga, DELIVERY DEPARTMENT SUPERVISOR PCP - General Family Medicine 03/24/16 02/04/23 documented as of this encounter
--- OUTSIDE RECORDS SUMMARY | 2024-05-25 14:14 | XMS_ITS | Encounter Summary ---
[place] [address] Care Team Providers Care Home Health Lvn Name Role Phone Mitchell Wilkes MD Primary Care Provider [phone] Reason for Visit * Reason Onset Date Comments Other 01/18/2014 Encounter Details Date Type Department Care Team (Late st Contact Info) Description 01/18/2014 Telephone Cardiology at [address] [phone] Jesusita Garces Other Social History [...] 10:00 AM EDT [place] [address] Magdalena Peralta MD [facility] [place] [address] 06/05/2024 2:00 PM EST Hospital Encounter Outpatient [facility] [place] [phone] Markel Borjas MD [facility] [address] [place] [address] 06/05/2024 2:00 PM EST - 06/05/2024 3:00 PM EST Surgery Outpatient [facility] [place] [phone] Markel Borjas MD [facility] [address] [place] [address] (OSC MSURG) BONE MARROW BIOPSY AND ASPIRATION; DIAGNOSTIC (WRVU 1.44) 06/23/2024 2:00 PM EST Office Visit Hematology and Oncology at [address] Markel Borjas MD [facility] DR HEMATOLOG[place] [address] 03/01/2025 4:15 PM EDT Office Visit Dermatology at [place] [address] [place] [phone] Marek Bonilla MD [address], [place] [address] Scheduled Procedures Name Priority Associated Diagnoses Date/Ti me (OSC MSURG) BONE MARROW BIOPSY AND ASPIRATION; DIAGNOSTIC (WRVU 1.44) Anemia, in pt with longstanding neutropenia 06/05/2024 2:00 PM EST documented as of this encounter Visit Diagnoses Not on filedocumented in this encounter Care Teams Home Health Lvn Relationship Specialty Start Date End Date Mitchell Wilkes MD [facility] PCP - General 06/24/10 01/19/14 documented as of this encounter
--- OUTSIDE RECORDS SUMMARY | 2024-05-25 14:14 | XMS_ITS | Encounter Summary ---
Author Organization [facility] [place] [address] Care Team Providers Care Credit Reporting Clerk Name Role Phone Junaid Deborah Shields APRN Primary Care Provider [phone] Encounter Details Date Type Department Care Team (Latest Contact Info) Description 05/19/2016 11:00 AM EDT Clinical [place] [phone] Nonrheumatic aortic valve stenosis Social History Tobacco [...] 10:00 AM EDT Office Visit Rheumatology at [place] [phone] Magdalena Peralta MD [facility] [place] [address] 06/05/2024 2:00 PM EST Hospital Encounter Outpatient Surgery [facility] [place] [phone] Markel Borjas MD [facility] DR HEMATOLOGY [place] [address] 06/05/2024 2:00 PM EST - 06/05/2024 3:00 PM EST Surgery Outpatient [place] [phone] Markel Borjas MD [facility] DR HEMATOLOGY [place] [address] (OSC MSURG) BONE MARROW BIOPSY AND ASPIRATION; DIAGNOSTIC (WRVU 1.44) 06/23/2024 2:00 PM EST Office Visit Hematology [place] [phone] Markel Borjas MD [facility] [place]EMATOLOG[place] [address] 03/01/2025 4:15 PM EDT Office Visit Dermatology at [place] [address] [place] [address] Marek Bonilla MD [address], [place] [address] Scheduled Procedures Name Priority Associated Diagnoses Date/Ti [...] (Bezet) 448 ms MUSE SYSTEM Calculated P [place] 37 degrees MUSE SYSTEM Calculated R [place] 31 degrees MUSE SYSTEM Calculated T [place] 25 degrees MUSE SYSTEM INTERPRETATION Normal sinus rhythm Normal ECG No previous ECGs available Confirmed by MD Becca, Deangelo ([id number]) on 05/19/2016 5:23:33 PM MUSE SYSTEM 05/19/2016 11:4 3 AM EDT 05/19/2016 5:23 PM EDT Alirio Esparza MD ECG ORDERABLES MUSE SYSTEM documented in this encounter Visit Diagnoses Diagnosis Nonrheumatic aortic valve stenosis Aortic valve disorders documented in this encounter Care Teams Credit Reporting Clerk Relationship Specialty Start Date End Date Deborah Quiroga APRN PCP - General Family Medicine 03/24/16 02/04/23 documented as of this encounter
--- OUTSIDE RECORDS SUMMARY | 2024-05-25 14:14 | XMS_ITS | Encounter Summary ---
Author Organization [facility] Address [facility] [place] [address] Care Team Providers Care Paramedic Name Role Phone JunaidAshley hargrovezac Shields APRN Primary Care Provider [phone] Reason for Visit * Auth/Cert Specialty Diagnoses / Procedures Referred By Crispin t Referred To Contact Diagnoses AVS Procedures CARDIAC CATHETERIZATION Referral ID Status Reason Start Date Expiration Date Visits Re quested Visits Authorized [id number] 1 1 Encounter Details Date Type Department Care Team (Late st Contact Info) Description 06/03/2016 6:32 AM EDT - 06/03/2016 1:10 PM EDT Hospital Encounter [place] [phone] Anjum Oliveros II, MD [facility] [place] [address] Mario Alberto Escobedo MD [facility] [place] [address] Aortic valve stenosis, unspecified etiology; Nonrheumatic aortic [...] by your doctor, do not take any [id number] medicinesor herbal preparations without first discussing this with your doctor or pharmacist. There is the possibility of side effects and interactions when these are combined. Follow Up Care Who to call with questions or problems If there are any questions or problems that you think might be related to your cardiac cath or angioplasty, contact the haircutter formulation chemist by calling [facility] at . * Patient Instructions* Felicia Corrigan - 06/03/2016 9:33 AM EDT Cardiology Instructions Call your doctor if: Chest pain, dyspnea, pain or swelling in legs occurs. If you have non-emergent questions between now and the time of your follow up appointments: -During 8am-5pm Wednesday through Wednesday call [phone] to speak with a nurse in the cardiology clinic -All other times call [phone] and ask to speak to the plastic duplicator formulation chemist. MEDICATIONS - restart your spironolactone, discontinue prior [...] Appointments: Primary care provider: Cardiology: Deborah Hahn, SURGICAL DENTAL ASSISTANT [phone] Follow up as planned or as needed. Dr. Esparza [phone] Other follow-up appointment: Hematology - Dr. Mario [...] EDT Office Visit Rheumatology at [place] [phone] Magdalena Peralta MD [facility] [place] [address] 06/05/2024 2:00 PM EST Hospital Encounter [place]patient [place] [address] Markel Borjas MD [facility] [place] [address] 06/05/2024 2:00 PM EST - 06/05/2024 3:00 PM EST Surgery [place] [phone] Markel Borjas MD [facility] [place] [address] (OSC MSURG) BONE MARROW BIOPSY AND ASPIRATION; DIAGNOSTIC (WRVU 1.44) 06/23/2024 2:00 PM EST Office Visit Hematology [place] [address] Markel Borjas MD [facility] [place] [address] 03/01/2025 4:15 PM EDT Office Visit Dermatology at [place] [address] [place] [phone] Marek Bonilla MD [address], [place] [address] Scheduled Procedures Name Priority Associated Diagnoses Date/Ti [...] [facility] Hold Sample in lab. [facility] Blood specimen (specimen) Venous Draw / Unknown 06/03/2016 11:45 AM EDT 06/03/2016 12:12 PM EDT Mario Alberto Escobedo MD CHEMISTRY ORDERABLES Performing Organization Address [facility] de Phone Number [facility] [place] [address] * Methylmalonic acid, serum (06/03/2016 11:45 AM EDT) [facility] Methylmalonic Acid (NOVEMBER) 0.21 <=0.40 nmol/mL [facility] Comment: Test Performed by: [place] [address] Welt Beater: Raymond Chaudhry II, M.D., Ph.D. Blood specimen (specimen) 06/03/2016 11:45 AM EDT 06/03/2016 1:57 PM EDT Narrative Resulting Agency Comment Spec In Lab Mario Alberto Escobedo MD LAB SEND OUT ORDERAB LES Performing Organization Address [facility] Co de Phone Number [facility] [place] [address] * Granulocyte Antibody (06/03/2016 11:45 AM EDT) [facility] Granulocyte Ab (NOVEMBER) Negative Not Applicable [facility] Comment: ADDITIONAL INFORMATION Method: Immunofluorescent Assay Performing Laboratory CLIA# [id number] This test was developed and its performance characteristics determined by [facility] in a manner consistent with CLIA requirements. This test has not been cleared or approved by the U.S. Food and Drug Administration. Test Performed by: [facility] - [address] [address] Welt Beater: Raymond Chaudhry II, M.D., Ph.D. Blood specimen (specimen) 06/03/2016 11:45 AM EDT 06/03/2016 1:57 PM EDT Narrative Resulting Agency Comment Spec In Lab Mario Alberto Escobedo MD LAB SEND OUT ORDERAB LES Performing Organization Address City/[facility]/ZIP Co de Phone Number [facility] [place] [address] * TSH (06/03/2016 11:45 AM EDT) Thyroid Stimulating Hormone 2.18 0.27 - 4.20 mcIU/mL [facility] Blood specimen (specimen) 06/03/2016 11:45 AM EDT 06/03/2016 12:11 PM EDT Narrative Resulting Agency Comment Spec In Lab Mario Alberto Escobedo MD CHEMISTRY ORDERABLES Performing Organization Address [facility] Co de Phone Number [facility] [place] [address] * Homocysteine Total, Plasma (06/03/2016 11:45 AM EDT) Homocystine 9 <=15 mcmol/L [facility] Blood specimen (specimen) 06/03/2016 11:45 AM EDT 06/03/2016 12:11 PM EDT Narrative Resulting Agency Comment Spec In Lab Mario Alberto Escobedo MD CHEMISTRY ORDERABLES Performing Organization Address [facility]/ZIP Co de Phone Number [facility] [place] [address] * Folate, serum (06/03/2016 11:45 AM EDT) Folate >20.0 4.8 - 24.2 ng/mL [facility] Blood specimen (specimen) 06/03/2016 11:45 AM EDT 06/03/2016 12:04 PM EDT Narrative Resulting Agency Comment Spec In Lab Mario Alberto Escobedo MD CHEMISTRY ORDERABLES Performing Organization Address [facility] Co de Phone Number [facility] [place] [address] * (ABNORMAL) Sedimentation rate (06/03/2016 11:45 AM EDT) Sedimentation Rate Automated 41(H) 0 - 20 mm/hr [facility] Blood specimen (specimen) 06/03/2016 11:45 AM EDT 06/03/2016 12:04 PM EDT Narrative Resulting Agency Comment Spec In Lab Mario Alberto Escobedo MD HEMATOLOGY ORDERABLE S Performing Organization Address [facility] Co de Phone Number [facility] [place] [address] * Lactate Dehydrogenase (06/03/2016 11:45 AM EDT) Lactate Dehydrogenase 164 110 - 220 unit/L [facility] Blood specimen (specimen) 06/03/2016 11:45 AM EDT 06/03/2016 12:11 PM EDT Narrative Resulting Agency Comment Spec In Lab Mario Alberto Escobedo MD CHEMISTRY ORDERABLES Performing Organization Address [facility] Co de Phone Number [facility] [place] [address] * Comprehensive metabolic panel (non-fasting) (06/03/2016 11:45 AM EDT) Glucose 90 65 - 199 mg/dL [facility] Comment:Diabetes: >=200 mg/d L plus symptoms Blood Urea Nitrogen 11 8 - 18 mg/dL [facility] Creatinine 0.83 0.70 - 1.20 mg/dL [facility] Comment: Please note that the pediatric reference intervals supplied above were not validated at [facility]. Results from pediatric [...] the following links into your internet browser. [email or web address] Blood specimen (specimen) 06/03/2016 11:45 AM EDT 06/03/2016 12:11 PM EDT Narrative Resulting Agency Comment Spec In Lab Mario Alberto Escobedo MD CHEMISTRY ORDERABLES [facility] [place] [address] documented in this encounter Visit Diagnoses Diagnosis [...] Hernandez) documented in this encounter Care Teams Paramedic Relationship Specialty Start Date End Date Deborah Quiroga, SURGICAL DENTAL ASSISTANT PCP - General Family Medicine 03/24/16 02/04/23 documented as of this encounter
--- OUTSIDE RECORDS SUMMARY | 2024-05-25 14:14 | XMS_ITS | Encounter Summary ---
Author Organization [facility] [place] [address] Care Team Providers Care Tailoring Teacher Name Role Phone Junaid, Deborah Shields APRN Primary Care Provider [phone] Encounter Details Date Type Department Care Team (Late st Contact Info) Description 05/19/2016 10:00 AM EDT Office Visit [place] [phone] Alirio Esparza MD Nonrheumatic aortic valve stenosis [...] EDT Office Visit Rheumatology at [place] [phone] Magdalena Peralta MD [facility] [place] [address] 06/05/2024 2:00 PM EST Hospital Encounter Outpatient [place] [address] Markel Borjas MD [facility] DR [place] [address] 06/05/2024 2:00 PM EST - 06/05/2024 3:00 PM EST Surgery Outpatient [place] [phone] Markel Borjas MD [facility] [address] [place] [address] (OSC MSURG) BONE MARROW BIOPSY AND ASPIRATION; DIAGNOSTIC (WRVU 1.44) 06/23/2024 2:00 PM EST Office Visit Hematology [place] [address] Markel Borjas MD [facility] DR [place] [address] 03/01/2025 4:15 PM EDT Office Visit Dermatology at [place] [address] [place] [address] Marek Bonilla MD [address], [place] [address] Scheduled Procedures Name Priority Associated Diagnoses Date/Ti [...] (Bezet) 448 ms MUSE SYSTEM Calculated P [place] 37 degrees MUSE SYSTEM Calculated R [place] 31 degrees MUSE SYSTEM Calculated T [place] 25 degrees MUSE SYSTEM INTERPRETATION Normal sinus rhythm Normal ECG No previous ECGs available Confirmed by MD Becca, Deangelo ([id number]) on 05/19/2016 5:23:33 PM MUSE SYSTEM 05/19/2016 11:4 3 AM EDT 05/19/2016 5:23 PM EDT Alirio Esparza MD ECG ORDERABLES MUSE SYSTEM * Basic Metabolic Panel (non-fasting) (05/19/2016 11:32 AM EDT) Pathologist [facility] Glucose 86 65 - 199 mg/dL [facility] Comment:Diabetes: >=200 mg/d L plus symptoms Blood Urea Nitrogen 13 8 - 18 mg/dL [facility] Creatinine 0.95 0.70 - 1.20 mg/dL [facility] Comment: Please note that the pediatric reference intervals supplied above were not validated at [facility]. Results from pediatric patients should be interpreted in conjunction to the patient's age, height and muscle mass. Sodium 140 135 - 145 mmol/L [facility] Potassium 4.3 3.5 - 5.0 mmol/L [facility] Comment: Please note: ??Patients with WBC >100,000 may have falsely elevated Potassium levels. ??For accurate Potassium quantification in these patients send serum separator tube (gold top) for subsequent determinations. ??Contact the Clinical Chemistry Laboratory if there are any questions. Chloride 101 98 - 107 mmol/L [facility] Carbon Dioxide 27 22 - 31 mmol/L [facility] Anion Gap 12 5 - 15 mmol/L [facility] Calcium 10.1 8.5 - 10.5 mg/dL [facility] Est Glomerular Filtration Rate [...] the following links into your internet browser. [email or web address] Blood specimen (specimen) 05/19/2016 11:32 AM EDT 05/19/2016 11:41 AM EDT Narrative Resulting Agency Comment Spec In Lab Alirio Esparza MD CHEMISTRY ORDERABLE S Performing Organization Address City/State/[facility] Co de Phone Number [facility] [place] [address] documented in this encounter Visit Diagnoses Diagnosis Nonrheumatic aortic valve stenosis Aortic valve disorders Nonrheumatic aortic valve stenosis Aortic valve disorders documented in this encounter Care Teams Tailoring Teacher Relationship Specialty Start Date End Date Deborah Quiroga APRN PCP - General Family Medicine 03/24/16 02/04/23 documented as of this encounter
--- OUTSIDE RECORDS SUMMARY | 2024-05-25 14:14 | XMS_ITS | Encounter Summary ---
Author Organization [facility] Address [facility] [place] [address] Care Team Providers Care Motorcycle Police Officer Name Role Phone Deborah Quiroga ANURAG Primary Care Provider [phone] Reason for Visit * Reason Onset Date Comments Pre Procedure Call 06/18/2016 Encounter Details Date Type Department Care Team (Late st Contact Info) Description 06/18/2016 Telephone Hematology [place] [address] Alexandrea Greenwood RN Pre Procedure [...] 10:00 AM EDT Office [place] [address] Magdalena Peralta MD [facility] [place] [address] 06/05/2024 2:00 PM EST Hospital Encounter Outpatient Surgery Center [place] [phone] Markel Borjas MD [facility] HEMATOLOGY [place] [address] 06/05/2024 2:00 PM EST - 06/05/2024 3:00 PM EST Surgery [place] [phone] Markel Borjas MD [facility] DR [place] [address] (OSC MSURG) BONE MARROW BIOPSY AND ASPIRATION; DIAGNOSTIC (WRVU 1.44) 06/23/2024 2:00 PM EST Office Visit Hematology [place] [phone] Markel Borjas MD [facility] DR HEMATOLOGY [place] [address] 03/01/2025 4:15 PM EDT Office Visit Dermatology at [address] [place] [address] Marek Bonilla MD [address] [place] [address] Scheduled Procedures Name Priority Associated Diagnoses Date/Ti me (OSC MSURG) BONE MARROW BIOPSY AND ASPIRATION; DIAGNOSTIC (WRVU 1.44) Anemia, in pt with longstanding neutropenia 06/05/2024 2:00 PM EST documented as of this encounter Visit Diagnoses Not on filedocumented in this encounter Care Teams Motorcycle Police Officer Relationship Specialty Start Date End Date Deborah Quiroga APRN PCP - General Family Medicine 03/24/16 02/04/23 documented as of this encounter
--- OUTSIDE RECORDS SUMMARY | 2024-05-25 14:14 | XMS_ITS | Encounter Summary ---
[place] [address] Care Team Providers Care Finishing Area Operator Name Role Phone Jerel Sofia Garcia APRN Primary Care Provider [phone] Encounter Details Date Type Department Care Team (Latest Contact Info) Description 11/12/2014 8:10 AM EDT - 11/12/2014 11:59 PM EDT Hospital [place] [phone] CLINIC, DR ABE Burrell, Antelmo Porter MD [facility] [place] [address] Discharge Disposition: Home Social History Tobacco Use [...] 10:00 AM EDT Office [place] [phone] Magdalena Peralta MD [facility] [place] [address] 06/05/2024 2:00 PM EST Hospital Encounter Outpatient Surgery Center [place] [phone] Markel Borjas MD [facility] DR HEMATOLOGY [place] [address] 06/05/2024 2:00 PM EST - 06/05/2024 3:00 PM EST Surgery [place] [phone] Markel Borjas MD [facility] DR HEMATOLOGY [place] [address] (OSC MSURG) BONE MARROW BIOPSY AND ASPIRATION; DIAGNOSTIC (WRVU 1.44) 06/23/2024 2:00 PM EST Office Visit Hematology [place] [phone] Markel Borjas MD [facility] HEMATOLOGY [place] [address] 03/01/2025 4:15 PM EDT Office Visit Dermatology at [place] [address] [place] [address] Marek Bonilla MD [address], [place] [address] Scheduled Procedures Name Priority Associated Diagnoses Date/Ti [...] mLs documented in this encounter Care Teams Finishing Area Operator Relationship Specialty Start Date End Date Sofia Beltrán APRN [address] [place] [address] PCP - General 11/12/14 03/23/16 documented as of this encounter
--- OUTSIDE RECORDS SUMMARY | 2024-05-25 14:14 | XMS_ITS | Encounter Summary ---
Author Organization Replaced By [facility] Address [facility] [place] [address] Care Team Providers Care Child Protective Services Social Worker Name Role Phone Danni Laird APRN Primary Care Provider [phone] Encounter Details Date Type Department Care Team (Late st Contact Info) Description 01/23/2014 Orders Only Cardiology at [address] [address] Lee Kincaid MD [facility] CARDIOLOGY [place], [place] [phone] SOB (shortness of breath) (Primary Dx) Social [...] 10:00 AM EDT Office [place] [address] Magdalena Peralta MD [facility] [place] [address] 06/05/2024 2:00 PM EST Hospital Encounter Outpatient [place] [address] Markel Borjas MD [facility] HEMATOLOGY [place] [address] 06/05/2024 2:00 PM EST - 06/05/2024 3:00 PM EST Surgery [place]patient [place] [address] Markel Borjas MD [facility] DR HEMATOLOGY [place] [address] (OSC MSURG) BONE MARROW BIOPSY AND ASPIRATION; DIAGNOSTIC (WRVU 1.44) 06/23/2024 2:00 PM EST Office Visit Hematology [place] [phone] Markel Borjas MD [facility] HEMATOLOGY [place] [address] 03/01/2025 4:15 PM EDT Office Visit Dermatology at [place] [address] [place] [phone] Marek Bonilla MD [address], TODD A DERMATOLOGY [place], [place] [phone] Scheduled Procedures Name Priority Associated Diagnoses Date/Ti me (OSC MSURG) BONE MARROW BIOPSY AND ASPIRATION; DIAGNOSTIC (WRVU 1.44) Anemia, in pt with longstanding neutropenia 06/05/2024 2:00 PM EST documented as of this encounter Results * Echocardiogram Transthoracic(Leb) (01/23/2014 3:17 PM EDT) EF 50 [facility] SYSTEM Anatomical Region Laterality Modality Other 01/23/2014 Narrative 01/23/2014 4:35 PM EDT Procedure: ? Transthoracic Echocardiogram Patient: ? ANDREW ONESIMO M ?(Age): 1955(58) Med Rec#: ?[id number] ? Sex: ?F ? [place] [facility] [place] Ht / Wt: ??158(cm)/93(kg) Pt. Loc: ? Adult Floor ?BSA: ?2.02 Study Date: ?01/23/2014 ? Pt. Type: Inpatient Tape: ? Referring: Lee Kincaid ([id number]) Referring: ANNALISA Toolroom Helper: Miguel Beverly Diagnosis:CPT Code(s): ??Echo Full (18778), ??Spectral Doppler (05120), Color Doppler (41954), Indication(s): ??Aortic stenosis Rhythm: Sinus HR ?BP [...] ? Mid-Inferior ?Hypokinetic ? Mid-Inferoseptal ?Hypokinetic ? [place]-Septal ? Hypokinetic ? [place]-Anterior ? Hypokinetic ? [place]-Lateral ?Hypokinetic ? [place]-Inferior ? Hypokinetic ? [place]-Tip ?Hypokinetic ? Chambers ?Value ?Units (Range) ? [...] Patient: ANDREW Mejias (Age): 1955(58) Med Rec#: [id number] Sex: F [place] [facility] [facility] Ht / Wt: 158(cm)/93(kg) Pt. Loc: Adult Floor BSA: 2.02 Study Date: 01/23/2014 Pt. Type: Inpatient Tape: Referring: Lee Kincaid ([id number]) Referring: ANNALISA Toolroom Helper: Miguel Beverly Diagnosis:CPT Code(s): Echo Full (72926), Spectral Doppler (07522), Color Doppler (36826), Indication(s): Aortic stenosis Rhythm: Sinus HR BP [...] Hypokinetic Mid-Posterolateral Hypokinetic Mid-Inferior Hypokinetic Mid-Inferoseptal Hypokinetic [place]-Septal Hypokinetic [place]-Anterior Hypokinetic [place]-Lateral Hypokinetic [place]-Inferior Hypokinetic [place]-Tip Hypokinetic Chambers Value Units (Range) IVSd 2D [...] breath documented in this encounter Care Teams Child Protective Services Social Worker Relationship Specialty Start Date End Date Danni Laird APRN [address] [place] [address] PCP - General 01/23/14 11/11/14 documented as of this encounter
--- OUTSIDE RECORDS SUMMARY | 2024-05-25 14:14 | XMS_ITS | Encounter Summary ---
Author Organization [facility] Address [facility] [place] [address] Care Team Providers Care Language Teacher Name Role Phone Deborah Quiroga APRN Primary Care Provider [phone] Encounter Details Date Type Department Care Team (Latest Contact Info) Description 05/19/2016 11:52 AM EDT - 05/19/2016 11:59 PM EDT Hospital Encounter XRay at [address] [place] [address] Alirio Esparza MD Nonrheumatic aortic valve stenosis [...] 10:00 AM EDT Office [place] [address] Magdalena Peralta MD [facility] DR [place] [address] 06/05/2024 2:00 PM EST Hospital Encounter Outpatient [place] [phone] Markel Borjas MD [facility] DR HEMATOLOGY [place] [address] 06/05/2024 2:00 PM EST - 06/05/2024 3:00 PM EST Surgery Outpatient [place] [address] Markel Borjas MD [facility] DR HEMATOLOGY [place] [address] (OSC MSURG) BONE MARROW BIOPSY AND ASPIRATION; DIAGNOSTIC (WRVU 1.44) 06/23/2024 2:00 PM EST Office Visit Hematology [place] [phone] Markel Borjas MD [facility] DR HEMATOLOGY [place] [address] 03/01/2025 4:15 PM EDT Office Visit Dermatology at [address] [place] [phone] Marek Bonilla MD [address], [place] [address] Scheduled Procedures Name Priority Associated Diagnoses Date/Ti [...] disorders documented in this encounter Care Teams Language Teacher Relationship Specialty Start Date End Date Deborah Quiroga APRN PCP - General Family Medicine 03/24/16 02/04/23 documented as of this encounter
--- OUTSIDE RECORDS SUMMARY | 2024-05-25 14:14 | XMS_ITS | Encounter Summary ---
[place] [address] Care Team Providers Care Bell Captain Name Role Phone Ashley Quirogan Cornelius ANURAG Primary Care Provider [phone] Encounter Details Date Type Department Care Team (Late st Contact Info) Description 03/24/2016 Notes Only [place] [phone] Alfa Lua Social History Tobacco Use Types [...] assessments completed: Wadsworth Score: 6/6 IADL: 7/7 Process Improvement Manager Strength Trials: 18.4, 15.0, 16.8 (right hand dominant) 5 meter walk test in seconds x3: 4.98, 4.88, 4.45 KCCQol: 98% Alfa Lua documented in this encounter Plan of Treatment Upcoming Encounters Date Type Department Care Team (Late st Contact Info) Description 06/01/2024 10:00 AM EDT Office Visit Rheumatology at [place] [phone] Magdalena Peralta MD [facility] [place] [address] 06/05/2024 2:00 PM EST Hospital Encounter Outpatient Surgery Center [place] [phone] Markel Borjas MD [facility] [place] [address] 06/05/2024 2:00 PM EST - 06/05/2024 3:00 PM EST Surgery Outpatient [place] [address] Markel Borjas MD [facility] [place] [address] (OSC MSURG) BONE MARROW BIOPSY AND ASPIRATION; DIAGNOSTIC (WRVU 1.44) 06/23/2024 2:00 PM EST Office Visit Hematology [place] [phone] Markel Borjas MD [facility] [place] [address] 03/01/2025 4:15 PM EDT Office Visit Dermatology at [place] [address] [facility] [place] [phone] Marek Bonilla MD [address], [place] [address] Scheduled Procedures Name Priority Associated Diagnoses Date/Ti me (OSC MSURG) BONE MARROW BIOPSY AND ASPIRATION; DIAGNOSTIC (WRVU 1.44) Anemia, in pt with longstanding neutropenia 06/05/2024 2:00 PM EST documented as of this encounter Visit Diagnoses Not on filedocumented in this encounter Care Teams Bell Captain Relationship Specialty Start Date End Date Deborah Quiroga APRN PCP - General Family Medicine 03/24/16 02/04/23 documented as of this encounter
--- OUTSIDE RECORDS SUMMARY | 2024-05-25 14:14 | XMS_ITS | Encounter Summary ---
Author Organization [facility] Address [facility] [place] [address] Care Team Providers Care Manager Change Name Role Phone Deborah Quiroga APRN Primary Care Provider [phone] Reason for Visit * Reason Comments Schedule Office Case * Consultation (Routine) - Closed Specialty Diagnoses / Procedures Referred By Contac t Referred To Contact Hematology and Oncology Diagnoses Leukopenia Neutropenia LEUKOPENIA W/NEUTROPENIA Procedures TC PEGFILGRASTIM, 6MG, INJECTION LEUKOPENIA W/NEUTROPENIA Alirio Esparza MD [facility] CARDIOTHORACIC [place] [address] Mario Alberto Ramos Jr., MD [facility] DR HEMATOLOGY [place] [address] Referral ID Status Reason Start Date Expiration Date V isits Requested Visits Authorized [id number] Closed Consult, Test & Treat 07/17/2016 07/17/2017 1 1 Encounter Details Date Type Department Care Team (Late st Contact Info) Description 06/09/2016 3:00 PM EST Office Visit Hematology [place] [address] Mario Alberto Ramos Jr., MD [facility] [place] [address] Cyclical neutropenia Social History Tobacco Use Types [...] 06/09/2016 3:00 PM EST Hematology Outpatient Clinic [facility] Hematology Outpatient Consult Note CC: [...] Unknown See Comment Flow Cytometry Report Unknown [id number] ... HematoPathology: Flow Cytometry DIAGNOSIS 1. No [...] 10:00 AM EDT Office [place] [address] Magdalena Peralta MD [facility] [place] [address] 06/05/2024 2:00 PM EST Hospital Encounter Outpatient [place] [phone] Markel Borjas MD [facility] DR HEMATOLOGY [place] [address] 06/05/2024 2:00 PM EST - 06/05/2024 3:00 PM EST Surgery Outpatient [place] [phone] Markel Borjas MD [facility] DR HEMATOLOGY [place] [address] (OSC MSURG) BONE MARROW BIOPSY AND ASPIRATION; DIAGNOSTIC (WRVU 1.44) 06/23/2024 2:00 PM EST Office Visit Hematology [place] [phone] Markel Borjas MD [facility] DR HEMATOLOGY [place] [address] 03/01/2025 4:15 PM EDT Office Visit Dermatology at [address] [place] [phone] Marek Bonilla MD [address], [place] [address] Scheduled Procedures Name Priority Associated Diagnoses Date/Ti [...] Flow Cytometry Report (06/09/2016 4:53 PM EST) Pathologist [facility] Flow Cytometry Report [id number] ?Location: The signing pathologist has (i) examined the relevant preparation(s) for the specimen(s) and (ii) rendered or confirmed the diagnosis(es). . ?Flow Cytometry DIAGNOSIS 1. ??No increased or abnormal immunophenotype T/NK/LGL or monoclonal B-cell ?? populations identified. 2. No increased blast population present (see Discussion). Electronically signed by: ??Tod CULP, nAdreina Arriaga Verified: ??06/10/2016 ?Hematopathologist DISCUSSION The majority [...] by the Clinical Flow Cytometry Laboratory at [facility]. It has not been cleared [...] high complexity clinical laboratory testing. SPECIMEN PROCESSING [id number] Cells for immunophenotypic analysis were derived from peripheral blood. ??CD45 vs side scatter gating was utilized to identify a lymphoid analysis region that comprises approximately 49-51% of all cells. The following markers were assessed: CD2, CD3, CD4, CD5, CD7, CD8, CD10, CD16, CD19, CD45, CD56, CD57, kappa light chain, and lambda light chain. CLINICAL INFORMATION 60 yo female with neutropenia. LGL panel requested. [facility] 06/09/2016 4:53 PM EST Mario Alberto Ramos Jr., MD PATHOLOGY/CYTOLOGY O RDERABLES [facility] [place] [phone] * Scan, Peripheral Blood (06/09/2016 4:53 PM EST) Plat estimate Normal [facility] RBC Morphology Normal [facility] Blood specimen (specimen) 06/09/2016 4:53 PM EST 06/09/2016 5:00 PM EST Narrative Resulting Agency Comment Spec In Lab Mario Alberto Ramos Jr., MD HEMATOLOGY ORDERABLE S [facility] [place] [address] * (ABNORMAL) Differential, Automated (06/09/2016 4:53 PM EST) Pathologist [facility] Neutrophil % 27.7 % [facility] Neutrophil Absolute 0.48(Crit ical) 1.70 - 6.10 x10(3)/mc L [facility] Comment: Matches Previous Results.. This result has been called to NOT CALLED by Jesusita Argueta on 06 09 2016 at 1817, and has not been read back. MATCHES PREVIOUS RESULTS Lymph % 57.2 % [facility] Lymphocytes Abs 1.0 0.9 - 3.2 x10(3)/mc L [facility] Monocyte % 13.3 % [facility] Monocyte Abs 0.2(L) 0.3 - 0.9 x10(3)/mc L [facility] Eos % 0.6 % [facility] Eosinophils Abs 0.0 0.0 - 0.4 x10(3)/mc L [facility] Basophil % 1.2 % [facility] Baso Absolute 0.0 0.0 - 0.1 x10(3)/mc L [facility] Immature Gran % 0.00 % [facility] Comment: Immature granulocytes(IG's)percentage and absolute count will include metamyelocytes, myelocytes, and promyelocytes. Blood smears from CBCs yielding IG's will be scanned manually for concordance. If this scan disagrees with the automated IG or if promyelocytes are noted, a manual differential will be performed. Immature Gran Absolute 0.00 0.00 - 0.04 x10(3)/mc L [facility] Blood specimen (specimen) 06/09/2016 4:53 PM EST 06/09/2016 5:00 PM EST Narrative Resulting Agency Comment Spec In Lab Mario Alberto Ramos Jr., MD HEMATOLOGY ORDERABLE S [facility] [place] [address] * (ABNORMAL) Hemogram (06/09/2016 4:53 PM EST) White Blood Cell 1.7(Criti gabrielle) 4.0 - 9.5 x10(3)/mc L [facility] Red Blood Cell 3.92(L) 4.00 - 5.21 x10(6)/ L [facility] Hemoglobin 12.4 11.7 - 15.5 gm/dL [facility] Hematocrit 36.7 35.7 - 45.8 % [facility] Mean Cell Volume 93.6 82.6 - 94.[address] [facility] Mean Cell Hemoglobin 31.6 27.1 - 32.[address] [facility] Mean Cell Hemoglobin Concentration 33.8 31.7 - 35.0 gm/dL [facility] Platelet 234 145 - 357 x10(3)/mc L [facility] RDW Standard Deviation 39.8 37.0 - 46.0 [facility] RDW coefficient of variation 11.8 11.5 - 14.1 % [facility] Mean Platelet Volume 8.6 7.6 - 12.[address] [facility] NRBC% auto 0.0 % [facility] NRBC Absolute 0.000 0.000 - 0.000 x10(3)/mc L [facility] Blood specimen (specimen) 06/09/2016 4:53 PM EST 06/09/2016 5:00 PM EST Narrative Resulting Agency Comment Spec In Lab Mario Alberto Ramos Jr., MD HEMATOLOGY ORDERABLE S Performing Organization Address [facility] Co de Phone Number [facility] [place] [address] * Immunophenotyping Flow Cytometry (06/09/2016 4:53 PM EST) Immunophenotyping Flow See Comment [facility] Comment: When completed by the Pathologist, the Flow Cytometry Report ([id number]) will display under the Pathology Results section within [facility]. Specimen of unknown material (specimen) 06/09/2016 4:53 PM EST 06/09/2016 5:00 PM EST Narrative Resulting Agency Comment Spec In Lab Mario Alberto Ramos Jr., MD HEMATOLOGY ORDERABLE S Performing Organization Address [facility] Co de Phone Number [facility] [place] [address] documented in this encounter Visit Diagnoses Diagnosis Cyclical neutropenia Cyclic neutropenia documented in this encounter Care Teams Manager Change Relationship Specialty Start Date End Date Deborah Quiroga, BUTTON RIVETER PCP - General Family Medicine 03/24/16 02/04/23 documented as of this encounter
--- OUTSIDE RECORDS SUMMARY | 2024-05-25 14:14 | XMS_ITS | Encounter Summary ---
Author Organization [facility] [place] [address] Care Team Providers Care Clerk General Name Role Phone Ashley Quirogazac Shields APRN Primary Care Provider [phone] Reason for Visit * Consultation (Urgent) - Closed Specialty Diagnoses / Procedures Referred By Contac t Referred To Contact Cardiac Surgery Diagnoses aortic stenosis, consideration for valve replacement Antelmo Burrell MD [address] [place] [address] [place] [address] Alirio Esparza MD [facility] DR CARDIOTHORACIC [place] [address] Referral ID Status Reason Start Date Expiration Date V isits Requested Visits Authorized [id number] Closed Connection Center 03/04/2016 03/04/2017 1 1 Encounter Details Date Type Department Care Team (Late st Contact Info) Description 03/24/2016 10:40 AM EDT Office [place] [phone] Alirio Esparza MD Aortic valve stenosis, unspecified [...] This is a patient of Antelmo Burrell [facility] Cardiology. Mrs. Thacker is being sent [...] 30 minute visit, 20 minutes were spent [id number] with the patient discussing aortic stenosis and valve replacement. documented in this encounter Plan of Treatment Upcoming Encounters Date Type Department Care Team (Late st Contact Info) Description 06/01/2024 10:00 AM EDT Office [place] [address] Magdalena Peralta MD [facility] [place] [address] 06/05/2024 2:00 PM EST Hospital Encounter Outpatient Surgery Center [place] [phone] Markel Borjas MD [facility] DR HEMATOLOGY [place] [address] 06/05/2024 2:00 PM EST - 06/05/2024 3:00 PM EST Surgery Outpatient [place] [phone] Markel Borjas MD [facility] DR HEMATOLOGY [place] [address] (OSC MSURG) BONE MARROW BIOPSY AND ASPIRATION; DIAGNOSTIC (WRVU 1.44) 06/23/2024 2:00 PM EST Office Visit Hematology [place] [phone] Markel Borjas MD [facility] DR HEMATOLOGY [place] [address] 03/01/2025 4:15 PM EDT Office Visit Dermatology at [place] [address] [place] [address] Marek Bonilla MD [address], [place] [address] Scheduled Procedures Name Priority Associated Diagnoses Date/Ti me (OSC MSURG) BONE MARROW BIOPSY AND ASPIRATION; DIAGNOSTIC (WRVU 1.44) Anemia, in pt with longstanding neutropenia 06/05/2024 2:00 PM EST documented as of this encounter Visit Diagnoses Diagnosis Aortic valve stenosis, unspecified etiology documented in this encounter Care Teams Clerk General Relationship Specialty Start Date End Date eDborah Quiroga APRN PCP - General Family Medicine 03/24/16 02/04/23 documented as of this encounter
--- OUTSIDE RECORDS SUMMARY | 2024-05-25 14:14 | XMS_ITS | Encounter Summary ---
Author Organization [facility] [place] [address] Care Team Providers Care Miner Name Role Phone Deborah Quiroga APRN Primary Care Provider Encounter Details Date Type Department Care Team (Latest Contact Info) Description 07/10/2016 2:54 PM EST - 07/10/2016 11:59 PM EST Hospital [place] [phone] Discharge Disposition: Home Social History Tobacco Use [...] 10:00 AM EDT Office [place] [phone] Magdalena Peralta MD [facility] [place] [address] 06/05/2024 2:00 PM EST Hospital Encounter [place]patient [place] [phone] Markel Borjas MD [facility] DR HEMATOLOGY [place] [address] 06/05/2024 2:00 PM EST - 06/05/2024 3:00 PM EST Surgery [place] [phone] Markel Borjas MD [facility] DR HEMATOLOGY [place] [address] (OSC MSURG) BONE MARROW BIOPSY AND ASPIRATION; DIAGNOSTIC (WRVU 1.44) 06/23/2024 2:00 PM EST Office Visit Hematology [place] [phone] Markel Borjas MD [facility] HEMATOLOGY [place] [address] 03/01/2025 4:15 PM EDT Office Visit Dermatology at [address] [address] Marek Bonilla MD [address], [place] [address] Scheduled Procedures Name Priority Associated Diagnoses Date/Ti [...] Report (07/10/2016 3:43 PM EST) Final Diagnosis [id number] ?Location: OPW The signing pathologist has (i) examined the relevant preparation(s) for the specimen(s) and (ii) rendered or confirmed the diagnosis(es). . ? Bone Marrow Final DIAGNOSIS BONE MARROW (PERIPHERAL SMEAR, ASPIRATE SMEAR, TOUCH PREP, CLOT SECTION, CORE BIOPSY); [OSR# [id number], COLLECTED 06/23/2016, 19 SLIDES]: ?? 1. 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 Polytypic plasma cell staining, high background Lambda ?Polytypic plasma cell staining, high background Block: ? B2 (Core biopsy 2) Fixative: ?? Formalin ANTIBODY: ?? RESULT/COMMENT CD3 ? Scattered small lymphocytes and lymphoid aggregates highlighted CD20 ?Few scattered small lymphocytes stain ( ?? <CD3 in aggregates) CD138 ? Scattered plasma cells represent 3-4% of the cellularity [place] ? Polytypic plasma cell staining, high background Lambda ?Polytypic plasma cell staining, high background Note: The immunoperoxidase stains reported above were developed and their performance characteristics determined by [facility]. ??They have not been cleared [...] CONSULTATION CASE A - 19 slides labeled [id number], collection date 06/23/2016. [id number] Report to: [facility] Surgical Pathology Department [facility], [facility], [address]nd Floor [address] [place] [address] ??[id number] 07/13/2016 11:38 AM EST [facility] Consult Case 07/10/2016 3:43 PM EST 07/10/2016 3:43 PM EST Nitesh Pina Jr., MD PATHOLOGY/CYTOLOGY O RDERABLES Performing Organization Address City/State/[facility] Co de Phone Number [facility] [place] [address] documented in this encounter Visit Diagnoses Not on filedocumented in this encounter Care Teams Miner Relationship Specialty Start Date End Date Deborah Quiroga APRN PCP - General Family Medicine 03/24/16 02/04/23 documented as of this encounter
--- OUTSIDE RECORDS SUMMARY | 2024-05-25 14:14 | XMS_ITS | Encounter Summary ---
Author Organization Formerly [facility] Address [facility] [place] [address] Care Team Providers Care Church Supervisor Name Role Phone Deborah Quiroga APRN Primary Care Provider Encounter Details Date Type Department Care Team (Late st Contact Info) Description 07/17/2016 9:00 AM EST Office Visit [place] [address] Markel Borjas MD [facility] DR H[place] [address] Neutropenia, unspecified type Social History Tobacco Use [...] 9:00 AM EST Hematology Outpatient Clinic [facility] [...] TOUCH PREP, CLOT SECTION, CORE ??BIOPSY); [OSR# [id number], COLLECTED 06/23/2016, 19 SLIDES]: ?1. 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 Labs will be drawn at [facility] next week Imaging As above - [...] leukopenia. 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 [facility] HEM ONC [facility] [place] [phone] Date: 07/17/16 Patient Name: Purnima Thacker : [...] 07/20/2016 Signature: Markel Borjas MD beeper # [id number] documented in this encounter Plan of Treatment Upcoming Encounters Date Type Department Care Team (Late st Contact Info) Description 06/01/2024 10:00 AM EDT Office [place] [address] Magdalena Peralta MD [facility] [place] [address] 06/05/2024 2:00 PM EST Hospital Encounter [place] [address] Markel Bojras MD [facility] DR H[place] [address] 06/05/2024 2:00 PM EST - 06/05/2024 3:00 PM EST Surgery [place] [address] Markel Borjas MD [facility] DR [place] [address] (OSC MSURG) BONE MARROW BIOPSY AND ASPIRATION; DIAGNOSTIC (WRVU 1.44) 06/23/2024 2:00 PM EST Office Visit [place] [phone] Markel Borjas MD [facility] DR HEMAT[place] [address] 03/01/2025 4:15 PM EDT Office Visit Dermatology at [place] [address] [place] [address] Marek Bonilla MD [address] [place] [address] Scheduled Procedures Name Priority Associated [...] ORDERAB LES Performing Organization Address [facility] de Phone Number EXTERNAL LAB * Mononucleosis Screen (07/20/2016 10:30 AM EST) Mononucleosis Screen neg neg - neg EXTERNAL LAB Blood specimen (specimen) 07/20/2016 10:30 AM EST Markel Borjas MD IMMUNOLOGY ORDERAB LES Performing Organization Address [facility] de Phone Number EXTERNAL LAB * Copper, serum (07/20/2016 10:30 AM EST) Pathologist [facility] Copper (NOVEMBER) 1.09 0.75 - 1.45 EXTERNAL LAB Blood specimen (specimen) 07/20/2016 10:30 AM EST Markel Borjas MD LAB SEND OUT ORDER JODIE Performing Organization Address [facility] de Phone Number EXTERNAL LAB * CMV PCR, Quantitative (07/20/2016 10:30 AM EST) Pathologist [facility] CMV PCR,Quantitati ve undetected EXTERNAL LAB Blood specimen (specimen) 07/20/2016 10:30 AM EST Markel Borjas MD MOLECULAR ORDERABL ES Performing Organization Address [facility] de Phone Number EXTERNAL LAB [...] ORDERAB LES Performing Organization Address [facility] de Phone Number EXTERNAL LAB documented in this encounter Visit Diagnoses Diagnosis Neutropenia, unspecified type documented in this encounter Care Teams Church Supervisor Relationship Specialty Start Date End Date Deborah Quiroga APRN PCP - General Family Medicine 03/24/16 02/04/23 documented as of this encounter
--- OUTSIDE RECORDS SUMMARY | 2024-05-25 14:14 | XMS_ITS | Encounter Summary ---
Author Organization [facility] Address [facility] [place] [address] Care Team Providers Care Special Inspector Name Role Phone Junaid Deborah Sylvia ANURAG Primary Care Provider [phone] Encounter Details Date Type Department Care Team (Late st Contact Info) Description 07/13/2016 External [place] [phone] Provider, Scanning Social History Tobacco Use Types [...] 10:00 AM EDT Office [place] [address] Magdalena Peralta MD [facility] [place] [address] 06/05/2024 2:00 PM EST Hospital Encounter [place]patient [place] [phone] Markel Borjas MD [facility] [place]Y [place] [address] 06/05/2024 2:00 PM EST - 06/05/2024 3:00 PM EST Surgery [place]patient [place] [address] Markel Borjas MD [facility] DR [place] [address] (OSC MSURG) BONE MARROW BIOPSY AND ASPIRATION; DIAGNOSTIC (WRVU 1.44) 06/23/2024 2:00 PM EST Office Visit Hematology [place] [address] Markel Borjas MD [facility] DR [place] [address] 03/01/2025 4:15 PM EDT Office Visit Dermatology at [place] [address] [place] [address] Marek Bonilla MD [address], [place] [address] Scheduled Procedures Name Priority Associated Diagnoses Date/Ti [...] filedocumented in this encounter Care Teams Special Inspector Relationship Specialty Start Date End Date Deborah Quiroga, HAND LENS POLISHER PCP - General Family Medicine 03/24/16 02/04/23 documented as of this encounter
--- OUTSIDE RECORDS SUMMARY | 2024-05-25 14:14 | XMS_ITS | Encounter Summary ---
Author Organization [facility] Address [facility] [place] [address] Care Team Providers Care Project Drilling Engineer Name Role Phone EitanMagnusDanni ANURAG Primary Care Provider Encounter Details Date Type Department Care Team (Latest Contact Info) Description 01/23/2014 7:45 AM EDT - 01/23/2014 5:50 PM EDT Hospital Encounter [place] [address] Alan Jacobson MD [facility] [place] [address] Cardiomyopathy; SOB (shortness of breath) Discharge Disposition: [...] by your doctor, do not take any wolw-zei-cuwbbjz medicines or herbal preparations without first discussing this with your doctor or pharmacist. There is the possibility of side effect and interactions when these are combined. Follow up Care Who to Call with Questions or Problems If there are any questions or problems that you think might be related to your cardiac cath or angioplasty, contact the brine plant operator space control agent by calling [facility] at . documented in this encounter [...] 10:00 AM EDT Office Visit Rheumatology at [place] [phone] Magdalena Peralta MD [facility] [address] 06/05/2024 2:00 PM EST Hospital Encounter Outpatient Surgery Center [place] [phone] Markel Borjas MD [facility] [place] [address] 06/05/2024 2:00 PM EST - 06/05/2024 3:00 PM EST Surgery Outpatient [place] [address] Markel Borjas MD [facility] DR [place] [address] (OSC MSURG) BONE MARROW BIOPSY AND ASPIRATION; DIAGNOSTIC (WRVU 1.44) 06/23/2024 2:00 PM EST Office Visit Hematology [place] [address] Markel Borjas MD [facility] [place] [address] 03/01/2025 4:15 PM EDT Office Visit Dermatology at [place] [address] [place] [address] Marek Bonilla MD [address], [place] [address] Scheduled Procedures Name Priority Associated Diagnoses Date/Ti [...] Transthoracic(Leb) (01/23/2014 3:17 PM EDT) EF 50 HEARTTidal SYSTEM Anatomical Region Laterality Modality Other 01/23/2014 Narrative 01/23/2014 4:35 PM EDT Procedure: ? Transthoracic Echocardiogram Patient: ? ANDREW ECHOLS M ?(Age): 1955(58) Med Rec#: ?[id number] ? Sex: ?F ? Site Loc: ?[facility] [facility] ? Ht / Wt: ??158(cm)/93(kg) Pt. Loc: ? Adult Floor ?BSA: ?2.02 Study Date: ?01/23/2014 ? Pt. Type: Inpatient Tape: ? Referring: Lee Kincaid ([id number]) Referring: ANNALISA Roll Tension Tester: Beverly, Miguel Diagnosis:CPT Code(s): ??Echo Full (90892), ??Spectral Doppler (02176), Color Doppler (64422), Indication(s): ??Aortic stenosis Rhythm: Sinus HR ?BP [...] ? Mid-Inferior ?Hypokinetic ? Mid-Inferoseptal ?Hypokinetic ? [place]-Septal ? Hypokinetic ? [place]-Anterior ? Hypokinetic ? [place]-Lateral ?Hypokinetic ? [place]-Inferior ? Hypokinetic ? [place]-Tip ?Hypokinetic ? Chambers ?Value ?Units (Range) ? [...] 01/23/2014 16:34:37 Images reviewed and interpretation verified [facility] Cardiac Ultrasound Laboratory Procedure Note Lee Kincaid MD - 01/23/2014 Procedure: Transthoracic Echocardiogram Patient: ANDREW Mejias (Age): 1955(58) Med Rec#: [id number] Sex: F Site Loc: [facility] Ht / Wt: 158(cm)/93(kg) Pt. Loc: Adult Floor BSA: 2.02 Study Date: 01/23/2014 Pt. Type: Inpatient Tape: Referring: Lee Kincaid ([id number]) Referring: ANNALISA Roll Tension Tester: Miguel Beverly Diagnosis:CPT Code(s): Echo Full (45768), Spectral Doppler (55772), Color Doppler (39836), Indication(s): Aortic stenosis Rhythm: Sinus HR BP [...] Hypokinetic Mid-Posterolateral Hypokinetic Mid-Inferior Hypokinetic Mid-Inferoseptal Hypokinetic [place]-Septal Hypokinetic [place]-Anterior Hypokinetic [place]-Lateral Hypokinetic [place]-Inferior Hypokinetic [place]-Tip Hypokinetic Chambers Value Units (Range) IVSd 2D [...] 01/23/2014 16:34:37 Images reviewed and interpretation verified [facility] Cardiac Ultrasound Laboratory Lee Kincaid [...] Routine 0845 (Due)1218 (Give n - Provider: iNtesh Stern RN) Continuous Medication Order 01/21/2014 01/22/2014 [...] RN) documented in this encounter Care Teams Project Drilling Engineer Relationship Specialty Start Date End Date Danin Laird APRN [address] [place] [address] PCP - General 01/23/14 11/11/14 documented as of this encounter
--- OUTSIDE RECORDS SUMMARY | 2024-05-25 14:14 | XMS_ITS | Encounter Summary ---
Author Organization [place] [address] Care Team Providers Care Lan Engineer Name Role Phone Eitan Danni ANURAG Primary Care Provider Encounter Details Date Type Department Care Team (Late st Contact Info) Description 01/23/2014 9:25 AM EDT - 01/23/2014 10:25 AM EDT Surgery Clinical [place] [address] Alan Jacobson MD [facility] [place] [address] CARDIAC CATHETERIZATION Social History Tobacco Use Types [...] by your doctor, do not take any cjsd-sjt-zuesgtg medicines or herbal preparations without first discussing this with your doctor or pharmacist. There is the possibility of side effect and interactions when these are combined. Follow up Care Who to Call with Questions or Problems If there are any questions or problems that you think might be related to your cardiac cath or angioplasty, contact the scheduler conveyor social economist by calling [facility] at [...] 10:00 AM EDT Office Visit Rheumatology at [place] [phone] Magdalena Peralta MD [facility] [place] [address] 06/05/2024 2:00 PM EST Hospital Encounter Outpatient [place] [address] Markel Borjas MD [facility] [place] [address] 06/05/2024 2:00 PM EST - 06/05/2024 3:00 PM EST Surgery Outpatient [place] [address] Markel Borjas MD [facility] [address] [place] [address] (OSC MSURG) BONE MARROW BIOPSY AND ASPIRATION; DIAGNOSTIC (WRVU 1.44) 06/23/2024 2:00 PM EST Office Visit Hematology [place] [address] Markel Borjas MD [facility] [address] [place] [address] 03/01/2025 4:15 PM EDT Office Visit Dermatology at [place] [address] [place] [address] Marek Bonilla MD [address], [place] [address] Scheduled Procedures Name Priority Associated Diagnoses Date/Ti [...] Transthoracic(Leb) (01/23/2014 3:17 PM EDT) EF 50 [facility] Anatomical Region Laterality Modality Other 01/23/2014 Narrative 01/23/2014 4:35 PM EDT Procedure: ? Transthoracic Echocardiogram Patient: ? ANDREW ONESIMO M ?(Age): 1955(58) Med Rec#: ?[id number] ? Sex: ?F ? Site Loc: [place] [place] ? Ht / Wt: ??158(cm)/93(kg) Pt. Loc: ? Adult Floor ?BSA: ?2.02 Study Date: ?01/23/2014 ? Pt. Type: Inpatient Tape: ? Referring: Lee Kincaid ([id number]) Referring: ANNALISA Construction Safety Consultant: Miguel Beverly Diagnosis:CPT Code(s): ??Echo Full (57108), ??Spectral Doppler (32833), Color Doppler (30146), Indication(s): ??Aortic stenosis Rhythm: Sinus HR ?BP [...] ? Mid-Inferior ?Hypokinetic ? Mid-Inferoseptal ?Hypokinetic ? [place]-Septal ? Hypokinetic ? [place]-Anterior ? Hypokinetic ? [place]-Lateral ?Hypokinetic ? [place]-Inferior ? Hypokinetic ? [place]-Tip ?Hypokinetic ? Chambers ?Value ?Units (Range) ? [...] Patient: ANDREW Mejias (Age): 1955(58) Med Rec#: [id number] Sex: F [place] Loc[place] [facility] [place] Ht / Wt: 158(cm)/93(kg) Pt. Loc: Adult Floor BSA: 2.02 Study Date: 01/23/2014 Pt. Type: Inpatient Tape: Referring: Lee Kincaid ([id number]) Referring: ANNALISA Construction Safety Consultant: Miguel Beverly Diagnosis:CPT Code(s): Echo Full (12547), Spectral Doppler (45927), Color Doppler (04514), Indication(s): Aortic stenosis Rhythm: Sinus HR BP [...] Hypokinetic Mid-Posterolateral Hypokinetic Mid-Inferior Hypokinetic Mid-Inferoseptal Hypokinetic [place]-Septal Hypokinetic [place]-Anterior Hypokinetic [place]-Lateral Hypokinetic [place]-Inferior Hypokinetic [place]-Tip Hypokinetic Chambers Value Units (Range) IVSd 2D [...] RN) documented in this encounter Care Teams Lan Engineer Relationship Specialty Start Date End Date Danni Laird APRN [address] [place] [address] PCP - General 01/23/14 11/11/14 documented as of this encounter
--- OUTSIDE RECORDS SUMMARY | 2024-05-25 14:14 | XMS_ITS | Encounter Summary ---
Author Organization [facility] Address [facility] [place] [address] Care Team Providers Care Coffee Sampler Name Role Phone Mitchell Wilkes MD Primary Care Provider [phone] Encounter Details Date Type Department Care Team (Late st Contact Info) Description 01/19/2014 Orders Only Cardiology at [address] [address] Chele Randolph PA [facility] [place] [address] Cardiomyopathy (Primary Dx) Social History [...] 10:00 AM EDT Office [place] [address] Magdalena Peralta MD [facility] DR RHEUMATOLOGY DEPT [place], [place] [address] 06/05/2024 2:00 PM EST Hospital Encounter [place]patient [place] [address] Markel Borjas MD [facility] DR HEMATOLOGY [place] [address] 06/05/2024 2:00 PM EST - 06/05/2024 3:00 PM EST Surgery [place] [address] Markel Borjas MD [facility] DR HEMATOLOGY [place] [address] (OSC MSURG) BONE MARROW BIOPSY AND ASPIRATION; DIAGNOSTIC (WRVU 1.44) 06/23/2024 2:00 PM EST Office Visit Hematology [place] [address] Markel Borjas MD [facility] DR HEMATOLOGY [place] [address] 03/01/2025 4:15 PM EDT Office Visit Dermatology at [place] [address] [place] [address] Marek Bonilla MD [address], [address] DERMATOLOGY [place], [place] [address] Scheduled Procedures Name Priority Associated Diagnoses Date/Ti [...] cardiomyopathies documented in this encounter Care Teams Coffee Sampler Relationship Specialty Start Date End Date Mitchell Wilkes MD [facility] PCP - General 06/24/10 01/19/14 documented as of this encounter
--- OUTSIDE RECORDS SUMMARY | 2024-05-25 14:14 | XMS_ITS | Encounter Summary ---
Author Organization [facility] [place] [address] Care Team Providers Care Leasing Representative Name Role Phone EitanDanni ANURAG Primary Care Provider [phone] Encounter Details Date Type Department Care Team (Late st Contact Info) Description 01/22/2014 Telephone Cardiology at [address] [phone] Cynthia Arrington LPN Social History Tobacco Use [...] LPN - 01/23/2014 2:39 PM EDT This check writer salesperson did not receive a call back from [...] 10:00 AM EDT Office Visit Rheumatology at [place] [phone] Magdalena Peralta MD [facility] [place] [address] 06/05/2024 2:00 PM EST Hospital Encounter Outpatient Surgery Center [place] [phone] Markel Borjas MD [facility] [place] [address] 06/05/2024 2:00 PM EST - 06/05/2024 3:00 PM EST Surgery [place]patient [place] [address] Markel Borjas MD [facility] [place] [address] (OSC MSURG) BONE MARROW BIOPSY AND ASPIRATION; DIAGNOSTIC (WRVU 1.44) 06/23/2024 2:00 PM EST Office Visit [place]ematology [place] [address] Markel Borjas MD [facility] [place] [address] 03/01/2025 4:15 PM EDT Office Visit Dermatology at [place] [address] [place] [address] Marek Bonilla MD [address] [place] [address] Scheduled Procedures Name Priority Associated Diagnoses Date/Ti me (OSC MSURG) BONE MARROW BIOPSY AND ASPIRATION; DIAGNOSTIC (WRVU 1.44) Anemia, in pt with longstanding neutropenia 06/05/2024 2:00 PM EST documented as of this encounter Visit Diagnoses Not on filedocumented in this encounter Care Teams Leasing Representative Relationship Specialty Start Date End Date Danni Laird APRN [address] [place] [address] PCP - General 01/23/14 11/11/14 documented as of this encounter
--- OUTSIDE RECORDS SUMMARY | 2024-05-25 14:14 | XMS_ITS | Encounter Summary ---
Author Organization [facility] Address [facility] [place] [address] Care Team Providers Care Metal Sheet Roller Operator Name Role Phone Junaid Deborah Shields APRN Primary Care Provider [phone] Encounter Details Date Type Department Care Team (Latest Contact Info) Description 06/19/2016 - 06/19/2016 11:59 PM EST Hospital Encounter Radiology Library at [facility] [phone] Nitesh Pina Jr., MD [facility] [place]OLOGY [place] [address] Pain Discharge Disposition: Home Social History Tobacco [...] 10:00 AM EDT Office Visit [place] [phone] Magdalena Peralta MD [facility] [place] [address] 06/05/2024 2:00 PM EST Hospital Encounter Outpatient [place] [phone] Markel Borjas MD [facility] DR HEM[place]Y [place] [address] 06/05/2024 2:00 PM EST - 06/05/2024 3:00 PM EST Surgery Outpatient [place] [phone] Markel Borjas MD [facility] DR [place]EM[place] [address] (OSC MSURG) BONE MARROW BIOPSY AND ASPIRATION; DIAGNOSTIC (WRVU 1.44) 06/23/2024 2:00 PM EST Office Visit Hematology [place] [address] Markel Borjas MD [facility] DR [place] [address] 03/01/2025 4:15 PM EDT Office Visit Dermatology at [place] [address] [place] [address] Marek Bonilla MD [address] [place] [address] Scheduled Procedures Name Priority Associated Diagnoses Date/Ti [...] Abdomen Pelvis (06/19/2016 12:00 AM EST) Narrative [facility] - 06/20/2016 8:53 AM EST This exam is for storage only and is auto-finalizing. Nitesh Pina Jr., MD IMG FILM LIBRARY ORD ERABLES Performing Organization Address City/State/[facility] Co de Phone Number [place], [place] documented in this encounter Visit Diagnoses Diagnosis Pain Generalized pain documented in this encounter Care Teams Metal Sheet Roller Operator Relationship Specialty Start Date End Date Deborah Quiroga APRN PCP - General Family Medicine 03/24/16 02/04/23 documented as of this encounter
--- OUTSIDE RECORDS SUMMARY | 2024-05-25 14:14 | XMS_ITS | Encounter Summary ---
[facility] [place] [address] Care Team Providers Care Shingle Shearing Machine Operator Name Role Phone Ashley Quirogan Sylvia ANURAG Primary Care Provider [phone] Encounter Details Date Type Department Care Team (Latest Contact Info) Description 05/19/2016 11:20 AM EDT Laboratory [place]ointment [place] [phone] Nonrheumatic aortic valve stenosis Social History Tobacco [...] 10:00 AM EDT Office Visit Rheumatology at [place] [phone] Magdalena Peralta MD [facility] [place] [address] 06/05/2024 2:00 PM EST Hospital Encounter [place] [address] Markel Borjas MD [facility] [address] [place] [address] 06/05/2024 2:00 PM EST - 06/05/2024 3:00 PM EST Surgery [place] [address] Markel Borjas MD [facility] [address] [place] [address] (OSC MSURG) BONE MARROW BIOPSY AND ASPIRATION; DIAGNOSTIC (WRVU 1.44) 06/23/2024 2:00 PM EST Office Visit Hematology [place] [phone] Markel Borjas MD [facility] [address] [place] [address] 03/01/2025 4:15 PM EDT Office Visit Dermatology at [place] [address] [place] [phone] Marek Bonilla MD [address] [place] [address] Scheduled Procedures Name Priority Associated Diagnoses Date/Ti [...] (05/19/2016 11:32 AM EDT) Plat estimate Normal [facility] RBC Morphology Normal [facility] Blood specimen (specimen) 05/19/2016 11:32 AM EDT 05/19/2016 11:41 AM EDT Narrative Resulting Agency Comment Spec In Lab Alirio Esparza MD HEMATOLOGY ORDERABL ES Performing Organization Address City/State/[facility] Co de Phone Number [facility] [place] [address] * (ABNORMAL) Differential, Automated (05/19/2016 11:32 AM EDT) Pathologist [facility] Neutrophil % 25.9 % [facility] Neutrophil Absolute 0.42(Crit ical) 1.70 - 6.10 x10(3)/mc L [facility] Comment: This result has been called to DR ALIRIO ESPARZA by Alivia Ibarra on 05 19 2016 at 1228, and has been read back. Lymph % 59.9 % [facility] Lymphocytes Abs 1.0 0.9 - 3.2 x10(3)/mc L [facility] Monocyte % 13.0 % [facility] Monocyte Abs 0.2(L) 0.3 - 0.9 x10(3)/mc L [facility] Eos % 0.6 % [facility] Eosinophils Abs 0.0 0.0 - 0.4 x10(3)/mc L [facility] Basophil % 0.6 % [facility] Baso Absolute 0.0 0.0 - 0.1 x10(3)/ L [facility] Immature Gran % 0.00 % [facility] Comment: Immature granulocytes(IG's)percentage and absolute count will include metamyelocytes, myelocytes, and promyelocytes. Blood smears from CBCs yielding IG's will be scanned manually for concordance. If this scan disagrees with the automated IG or if promyelocytes are noted, a manual differential will be performed. Immature Gran Absolute 0.00 0.00 - 0.04 x10(3)/ L [facility] Blood specimen (specimen) 05/19/2016 11:32 AM EDT 05/19/2016 11:41 AM EDT Narrative Resulting Agency Comment Spec In Lab Alirio Esparza MD HEMATOLOGY ORDERABL ES Performing Organization Address City/State/[facility] Co de Phone Number [facility] [place] [phone] * (ABNORMAL) Hemogram (05/19/2016 11:32 AM EDT) White Blood Cell 1.6(Criti gabrielle) 4.0 - 9.5 x10(3)/ L [facility] Comment: This result has been called to DR ALIRIO ESPARZA by Alivia Ibarra on 05 19 2016 at 1228, and has been read back. Red Blood Cell 3.96(L) 4.00 - 5.21 x10(6)/mc L [facility] Hemoglobin 12.5 11.7 - 15.5 gm/dL [facility] Hematocrit 37.9 35.7 - 45.8 % [facility] Mean Cell Volume 95.7(H) 82.6 - 94.4 fL [facility] Mean Cell Hemoglobin 31.6 27.1 - 32.0 pg [facility] Mean Cell Hemoglobin Concentration 33.0 31.7 - 35.0 gm/dL [facility] Platelet 227 145 - 357 x10(3)/mc L [facility] RDW Standard Deviation 40.5 37.0 - 46.0 fL [facility] RDW coefficient of variation 11.5 11.5 - 14.1 % [facility] Mean Platelet Volume 8.4 7.6 - 12.9 fL [facility] NRBC% auto 0.0 % [facility] NRBC Absolute 0.000 0.000 - 0.000 x10(3)/mc L [facility] Blood specimen (specimen) 05/19/2016 11:32 AM EDT 05/19/2016 11:41 AM EDT Narrative Resulting Agency Comment Spec In Lab Alirio Esparza MD HEMATOLOGY ORDERABL ES Performing Organization Address [facility] Co de Phone Number [facility] [place] [address] * Antibody screen (05/19/2016 11:32 AM EDT) Ab Screen Interp Negative [facility] Expires at 2359 on: 07/03/2016 [facility] Comment: Corrected from 06/11/16 12:00 [Unknown] on 06/09/16 05:51 by Bethanie Tomlinson I.. Corrected from 07/03/16 12:00 [Unknown] on 05/21/16 06:00 by Shelia Barrera Blood specimen (specimen) 05/19/2016 11:32 AM EDT 05/19/2016 11:35 AM EDT Narrative Resulting Agency Comment Spec In Lab Alirio Esparza MD BLOOD BANK LAB ORDE RABLES Performing Organization Address City/[facility]/ZIP Co de Phone Number [facility] [place] [address] * ABO/Rh Typing (05/19/2016 11:32 AM EDT) ABORH Type B Pos [facility] Blood specimen (specimen) 05/19/2016 11:32 AM EDT 05/19/2016 11:35 AM EDT Narrative Resulting Agency Comment Spec In Lab Alirio Esparza MD BLOOD BANK LAB BETH SHANNONROMERO [facility] [place] [place] [address] * Basic Metabolic Panel (non-fasting) (05/19/2016 11:32 AM EDT) Glucose 86 65 - 199 mg/dL [facility] Est Glomerular Filtration Rate 60 [...] the following links into your internet browser. [email or web address] [email or web address] Blood specimen (specimen) 05/19/2016 11:32 AM EDT 05/19/2016 11:41 AM EDT Narrative Resulting Agency Comment Spec In Lab Alirio Esparza MD CHEMISTRY ORDERABLE S Performing Organization Address City/State/[facility] Co de Phone Number [facility] [place] [phone] documented in this encounter Visit Diagnoses Diagnosis Nonrheumatic aortic valve stenosis Aortic valve disorders documented in this encounter Care Teams Shingle Shearing Machine Operator Relationship Specialty Start Date End Date Deborah Quiroga APRN PCP - General Family Medicine 03/24/16 02/04/23 documented as of this encounter
[2024-05-30 14:40] VITALS: BP 152/70; PULSE 76
--- OUTSIDE RECORDS SUMMARY | 2024-06-01 14:12 | XMS_ITS | Encounter Summary ---
Author Organization [facility] Address [facility] [place] [address] Care Team Providers Care Information Assurance Analyst Name Role Phone Magdalena Acosta MD Primary Care Provider [phone] Encounter Details Date Type Department Care Team (Late st Contact Info) Description 06/01/2024 10:00 AM EDT Office [place] [address] Magdalena Peralta MD [facility] [place] [address] Mixed connective tissue disease Social History Tobacco [...] Sign Reading Time Taken Comments Blood Pressure 122/56 06/01/2024 9:47 AM EDT Pulse 68 06/01/2024 9:47 AM EDT Temperature 36.3 ??C (97.3 ??F) 06/01/2024 9:47 AM ED T Respiratory Rate 16 06/01/2024 9:47 AM EDT Oxygen Saturation 100% 06/01/2024 9:47 AM EDT Inhaled Oxygen Concentration - - Weight 85.2 kg (187 lb 14.4 oz) 06/01/2024 9:47 AM EDT Height 154.9 cm (5' 0.98) 06/01/2024 9:47 AM ED T Body Mass Index 35.52 06/01/2024 9:47 AM EDT documented in this encounter Patient Instructions * Attachments The following attachments cannot be sent through Care Everywhere. 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 She also notices that for the first few days after the steroid injection all of the pain in her body feels better and she feels almost giddy. Her orthopedist mentioned that she might be a candidate for chronic low dose Prednisone and she wonders about this. She denies worsening sicca, oral ulcers, skin rashes, new respiratory symptoms, and inflammatory joint complaints. Raynauds is stable and not too bothersome. She is gaining weight and would like to be able to move and exercise better ROS (positives in bold): Gen: no fevers, no chills, no night sweats Pulm: no SOB CV: no CP Abd: no abd pain, no nausea, no vomiting, no diarrhea MSK: see HPI Meds and Allergies: Reviewed in eDH Physical exam: BP 122/56 Pulse 68 Temp 36.3 ??C (97.3 ??F) (Temporal) Resp 16 Ht 154.9 cm (5' 0.98) Wt 85.2 kg (187 lb 14.4 oz) SpO2 100% BMI 35.52 kg/m?? Gen: well appearing, alert and oriented x 3, nad HEENT: NCAT, EOMI, moist mucous membranes, no oral ulcers, normal sclerae Lymph: no cervical LAD Heart: regular rate, no murmurs, rubs or gallops Lungs: clear to auscultation b/l Abd: soft, +bs, NT/ND Skin: warm and dry, no rheumatologic rashes Nails: no nail pitting Joints: Shoulders: FROM, non-tender to palpation Elbows: FROM, no swelling, non-tender Wrists: FROM, no swelling, non-tender Hands: No synovitis, no MCP compression tenderness, full claw and fist Knees: FROM, no effusion, no tenderness Ankles: FROM, non-tender, no effusion Labs/Studies: Reviewed. Current Immunizations Name Date Influenza [...] affecting her fingers and not her toes. No new or worrisome features on history or exam today. She has a bone marrow biopsy planned with hematology next week. She had leukopenia recently but also had cytopenias predating exposure to HCQ. C an consider discontinuing this therapy if indicated based on biopsy results. We reviewed that osteoporosis is not an indication for fci systemic steroid therapy as it is not an autoimmune/inflammatory condition and the risks and potential consequences of steroids (osteoporosis, glaucoma, hyperglycemia, hypertension, increased cardiovascular risk) far outweigh the potential benefit conferred for OA treatment. Additionally, I would not want to start oral steroid therapy today in advance of her bone marrow biopsy in case it affected the yield. #MCTD - continue HCQ 200 mg qd #osteoarthritis - continue conservative treatment strategies (compression gloves, voltaren gel) - found nerve ablation for her right knee helpful, is going to consider ablation on the left - recommended discussing synvisc injections with ortho - reviewed low impact exercise strategies and recommended incorporating quadriceps strengthening (printed exercises provided w/ AVS) Follow up 6 months Patient was discussed with Dr. Roma Peralta MD Rheumatology Fellow Pager: [phone] documented in this encounter Plan of Treatment Upcoming Encounters Date Type Department Care Team (Late st Contact Info) Description 06/05/2024 2:00 PM EST Hospital Encounter Outpatient [place] [address] Markel Borjas MD [facility] DR [place] [address] 06/05/2024 2:00 PM EST - 06/05/2024 3:00 PM EST Surgery Outpatient [place] [address] Markel Borjas MD [facility] DR [place] [address] (OSC MSURG) BONE MARROW BIOPSY AND ASPIRATION; DIAGNOSTIC (WRVU 1.44) 06/23/2024 2:00 PM EST Office Visit Hematology [place] [address] Markel Borjas MD [facility] [address] [place] [address] 11/02/2024 12:00 PM EDT Appointment [place] [address] 11/02/2024 1:00 PM EDT Office [place] [address] Magdalena Peralta MD [facility] [place] [address] 03/01/2025 4:15 PM EDT Office Visit Dermatology at [place] [address] [place] [address] Marek Bonilla MD [address] [place] [address] Scheduled Orders Name Type Priority Associated Diagnoses Orde r Schedule Common Pulmonary Function Test PFT Routine Mixed connective tissue disease Expected: 10/31/2024, Expires: 06/01/2025 Scheduled Procedures Name Priority Associated Diagnoses Date/Ti me (OSC MSURG) BONE MARROW BIOPSY AND ASPIRATION; DIAGNOSTIC (WRVU 1.44) Anemia, in pt with longstanding neutropenia 06/05/2024 2:00 PM EST documented as of this encounter Visit Diagnoses Diagnosis Mixed connective tissue disease Other specified diffuse disease of connective tissue documented in this encounter Care Teams Information Assurance Analyst Relationship Specialty Start Date End Date Magdalena Acosta MD [address] [place] [address] PCP - General Family Medicine 02/05/23 documented as of this encounter
--- OUTSIDE RECORDS SUMMARY | 2024-06-01 14:12 | XMS_ITS | Encounter Summary ---
Author Organization [facility] Address [address] [place] [address] Care Team Providers Care Driver License Technician Name Role Phone Ashley Chavez Primary Care Provider [phone] Encounter Details Date Type Department Care Team (Late st Contact Info) Description 01/07/2023 Lab Requisition [facility] Pathology & Laboratory Medicine - [address] [phone] Outr Resulting Lab, Provider Social History Tobacco [...] 56.2 55.8 - 66.1 % 01/08/2023 11:28 [facility] Albumin g/dL 3.9 3.6 - 5.2 g/dL 01/08/2023 11:28 [facility] Alpha-1 % 5.1(H) 2.9 - 4.9 % 01/08/2023 11:28 [facility] Alpha-1 g/dL 0.40 0.15 - 0.40 g/dL 01/08/2023 11:28 [facility] Alpha-2 % 7.0(L) 7.1 - 11.8 % 01/08/2023 11:28 [facility] Alpha-2 g/dL 0.50 0.50 - 1.00 g/dL 01/08/2023 11:28 [facility] Beta % 12.7 8.4 - 13.1 % 01/08/2023 11:28 [facility] Beta g/dL 0.90 0.60 - 1.20 g/dL 01/08/2023 11:28 [facility] Gamma % 19.0(H) 11.1 - 18.8 % 01/08/2023 11:28 [facility] Gamma g/dL 1.30 0.60 - 1.60 g/dL 01/08/2023 11:28 [facility] SPEP Comment No apparent monoclonal protein seen on serum electrophoresis 01/08/2023 11:28 [facility] Comment:See scanned/suppleme ntary report. Total Protein 6.9 6.3 - 8.2 g/dL 01/08/2023 11:28 [facility] Blood VENOUS BLOOD / Unknown 01/06/2023 14:40 EDT 01/07/2023 17:37 EDT Provider Outr Resulting Lab CHEMISTRY & BLOOD GAS ORDERABLES Performing Organization Address City/State/[facility] Co de Phone Number [facility] [address] [place] [address] * PROTEIN, TOTAL (01/06/2023 14:40 EDT) Blood VENOUS BLOOD / Unknown 01/06/2023 14:40 EDT 01/07/2023 17:37 EDT Provider Outr Resulting Lab CHEMISTRY & BLOOD GAS ORDERABLES Performing Organization Address [facility] Co de Phone Number [facility] [address] [place] [address] * (ABNORMAL) EXTRACTABLE NUCLEAR ANTIGEN PANEL (01/06/2023 14:40 EDT) SSA Antibody 1.3 <20.0 Units 01/08/2023 15:42 EDT [facility] Comment: ? Negative: <20.0 [...] 1.5 <20.0 Units 01/08/2023 15:42 EDT [facility] Comment: ? Negative: <20.0 [...] 15.3 <20.0 Units 01/08/2023 15:42 EDT [facility] Comment: ? Negative: <20.0 Units ? Weak Positive: 20.0 - 39.9 Units ? Moderate Positive: 40.0 - 80.0 Units ? Strong Positive: >80.0 Units Results were obtained with the [employer] QUANTA Lite Sm DOMO. ??Sm values obtained with different manufacturers' assay methods may not be used interchangeably. ??The magnitude of the reported IgG levels cannot be correlated to an endpoint titer. FORKLIFT TRUCK OPERATOR Antibody 149.1(H) <20.0 Units 01/08/2023 15:42 EDT [facility] Comment: ? Negative: <20.0 Units ? Weak Positive: 20.0 - 39.9 Units ? Moderate Positive: 40.0 - 80.0 Units ? Strong Positive: >80.0 Units Results were obtained with the [employer]va Quanta Lite FORKLIFT TRUCK OPERATOR DOMO. FORKLIFT TRUCK OPERATOR values obtained with different flatwork catcher's assay methods may not be used interchangeaby. ??The magnitude of the reported IgG levels cannot be be correlated to an endpoint titer. A positive result in the Quanta Lite FORKLIFT TRUCK OPERATOR DOMO indicates the presence of antibodies reactive with the FORKLIFT TRUCK OPERATOR/Sm complex but cannot distinguish between anti-Sm and anti-FORKLIFT TRUCK OPERATOR activity. Blood VENOUS BLOOD / Unknown 01/06/2023 14:40 EDT 01/07/2023 17:37 EDT Provider Outr Resulting Lab IMMUNOLOGY A ND SEROLOGY ORDERABLES [facility] [address] [place] [address] * (ABNORMAL) ANTI NUCLEAR AB (FRANCISCO), IFA (01/06/2023 14:40 EDT) FRANCISCO Interpretation Positive(A) Negative 01/08/2023 15:22 EDT [facility] Comment: Result is equal [...] 1 1:5120 Speckled 01/08/2023 15:22 EDT [facility] Blood VENOUS BLOOD / Unknown 01/06/2023 14:40 EDT 01/07/2023 17:37 EDT Narrative [facility] - 01/08/2023 15:22 EDT Results were obtained with the [employer] NOVA Lite HEp-2 FRANCISCO Kit by indirect immunofluorescence. Provider Outr Resulting Lab IMMUNOLOGY A ND SEROLOGY ORDERABLES Performing Organization Address City/State/[facility] Co de Phone Number [facility] [address] [place] [address] documented in this encounter Visit Diagnoses Not on filedocumented in this encounter Care Teams Driver License Technician Relationship Specialty Start Date End Date Ashley Chavez ARNP [address] [place] [address] PCP - General 07/11/10 documented as of this encounter
--- OUTSIDE RECORDS SUMMARY | 2024-06-01 14:12 | XMS_ITS | Encounter Summary ---
Author Organization [facility] Address [address] [place] [address] Care Team Providers Care Longwall Headgate Operator Name Role Phone Ashley Chavez Primary Care Provider [phone] Encounter Details Date Type Department Care Team (Late st Contact Info) Description 03/21/2024 Lab Requisition [facility] Pathology & Laboratory Medicine - [address] [address] Outr Resulting Lab, Provider Social History Tobacco [...] - 197 mg/dL 03/22/2024 10:25 EDT [facility] Blood VENOUS BLOOD / Unknown 03/21/2024 13:00 EDT 03/21/2024 21:50 EDT Provider Outr Resulting Lab CHEMISTRY & BLOOD GAS ORDERABLES [facility] [address] [place] [address] documented in this encounter Visit Diagnoses Not on filedocumented in this encounter Care Teams Longwall Headgate Operator Relationship Specialty Start Date End Date Ashley Chavez ARNP [address] [place] [address] PCP - General 07/11/10 documented as of this encounter
--- OUTSIDE RECORDS SUMMARY | 2024-06-01 14:12 | XMS_ITS | Encounter Summary ---
Author Organization [facility] Address [address] [place] [address] Care Team Providers Care Donor Technician Name Role Phone Ashley Chavez Primary Care Provider [phone] Encounter Details Date Type Department Care Team (Late st Contact Info) Description 04/29/2022 Lab Requisition [facility] Pathology & Laboratory Medicine - [address] [address] Outr Resulting Lab, Provider Social History Tobacco [...] Units 04/30/2022 12:[address] [facility] Comment: ? Negative: <20.0 [...] A ND SEROLOGY ORDERABLES Performing Organization Address [facility] de Phone Number [facility] [address] [place] [address] * SSA ANTIBODIES BY DOMO (04/29/2022 7:51 EDT) SSA Antibody 1.5 <20.0 Units 04/30/2022 12:[address] [facility] Comment: ? Negative: <20.0 [...] ND SEROLOGY ORDERABLES Performing Organization Address [facility] de Phone Number [facility] [address] [place] [address] documented in this encounter Visit Diagnoses Not on filedocumented in this encounter Care Teams Donor Technician Relationship Specialty Start Date End Date Ashley Chavez ARNP [address] [place] [address] PCP - General 07/11/10 documented as of this encounter
--- OUTSIDE RECORDS SUMMARY | 2024-06-01 14:12 | XMS_ITS | Encounter Summary ---
Author Organization [facility] [place] [address] Care Team Providers Care Lens And Frames Prescription Clerk Name Role Phone Magdalena Acosta MD Primary Care Provider [phone] Encounter Details Date Type Department Care Team [...] PM EST Hospital Encounter Outpatient [place] [address] Markel Borjas MD [facility] [address] [place] [address] 06/05/2024 2:00 PM EST - 06/05/2024 3:00 PM EST Surgery Outpatient [place] [address] Markel Borjas MD [facility] [address] [place] [address] (OSC MSURG) BONE MARROW BIOPSY AND ASPIRATION; DIAGNOSTIC (WRVU 1.44) 06/23/2024 2:00 PM EST Office Visit Hematology and Oncology at [place] [phone] Markel Borjas MD [facility] DR [place] [address] 11/02/2024 12:00 PM EDT Appointment Pulmonology at [address] 11/02/2024 1:00 PM EDT Office Visit Rheumatology at [address] Magdalena Peralta MD [facility] [place] [address] 03/01/2025 4:15 PM EDT Office Visit Dermatology at [address] [place] [phone] Marek Bonilla MD [address] [facility] [place] [address] Scheduled Procedures Name Priority Associated Diagnoses Date/Ti me (OSC MSURG) BONE MARROW BIOPSY AND ASPIRATION; DIAGNOSTIC (WRVU 1.44) Anemia, in pt with longstanding neutropenia 06/05/2024 2:00 PM EST documented as of this encounter Visit Diagnoses Not on filedocumented in this encounter Care Teams Lens And Frames Prescription Clerk Relationship Specialty Start Date End Date Magdalena Acosta MD [address] [place] [address] PCP - General Family Medicine 02/05/23 documented as of this encounter
--- OUTSIDE RECORDS SUMMARY | 2024-06-01 14:12 | XMS_ITS | Encounter Summary ---
Author Organization [facility] Address [address] [place] [address] Care Team Providers Care Chemical Engineering Intern Name Role Phone Unavailable Primary Care Provider Unavailabl e Encounter Details Date Type Department Care Team (Late st Contact Info) Description 07/08/2010 Results Only [facility] Non-Invasive Cardiology - [facility] [address] [place] [address] Ashley Chavez, WILLIAM [address] [place] [address] Social History Tobacco Use Types Packs/Day Years [...] ? 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 Accession #: ? [id number] ? : ? 1955 (Age: 54) ??F [...] Ashley THOMAS PATHOLOGY ORDERABLES PAUL ARELLANO [address] [place] [address] documented in this encounter Visit Diagnoses Not on filedocumented in this encounter
--- OUTSIDE RECORDS SUMMARY | 2024-06-01 14:12 | XMS_ITS | Encounter Summary ---
Author Organization [facility] [place] [address] Care Team Providers Care Swimming Pool Installer And Servicer Name Role Phone Magdalena Acosta MD Primary Care Provider [phone] Encounter Details Date Type Department Care Team [...] PM EST Hospital Encounter [place] [address] Markel Borjas MD [facility] [place] [address] 06/05/2024 2:00 PM EST - 06/05/2024 3:00 PM EST Surgery [place] [address] Markel Borjas MD [facility] [place] [address] (OSC MSURG) BONE MARROW BIOPSY AND ASPIRATION; DIAGNOSTIC (WRVU 1.44) 06/23/2024 2:00 PM EST Office Visit Hematology and Oncology at [place] [phone] Markel Borjas MD [facility] [place] [address] 11/02/2024 12:00 PM EDT Appointment Pulmonology at [address] 11/02/2024 1:00 PM EDT Office Visit Rheumatology at [address] Magdalena Peralta MD [facility] [place] [address] 03/01/2025 4:15 PM EDT Office Visit Dermatology at [address] [place] [phone] Marek Bonilla MD [address] [facility], [place] [address] Scheduled Procedures Name Priority Associated Diagnoses Date/Ti me (OSC MSURG) BONE MARROW BIOPSY AND ASPIRATION; DIAGNOSTIC (WRVU 1.44) Anemia, in pt with longstanding neutropenia 06/05/2024 2:00 PM EST documented as of this encounter Visit Diagnoses Not on filedocumented in this encounter Care Teams Swimming Pool Installer And Servicer Relationship Specialty Start Date End Date Magdalena Acosta MD [address] [place] [address] PCP - General Family Medicine 02/05/23 documented as of this encounter
--- OUTSIDE RECORDS SUMMARY | 2024-06-01 14:12 | XMS_ITS | Encounter Summary ---
Author Organization [facility] [place] [address] Care Team Providers Care Hand Painter Name Role Phone Magdalena Acosta MD Primary Care Provider [phone] Encounter Details Date Type Department Care Team (Late st Contact Info) Description 05/18/2024 Interpretation Only [address] [phone] Magdalena Acosta MD [address] [place], [place] [phone] Social History Tobacco Use Types Packs/Day Years [...] PM EST Hospital Encounter [place] [phone] Markel Borjas MD [facility] DR [place] [address] 06/05/2024 2:00 PM EST - 06/05/2024 3:00 PM EST Surgery Outpatient [place] [address] Markel Borjas MD [facility] DR [place] [address] (OSC MSURG) BONE MARROW BIOPSY AND ASPIRATION; DIAGNOSTIC (WRVU 1.44) 06/23/2024 2:00 PM EST Office Visit Hematology and Oncology at [address] Markel Borjas MD [facility] [place] [address] 11/02/2024 12:00 PM EDT Appointment Pulmonology at [place] [address] 11/02/2024 1:00 PM EDT Office Visit Rheumatology at [place] [address] Magdalena Peralta MD [facility] [place] [address] 03/01/2025 4:15 PM EDT Office Visit Dermatology at [address] [place] [phone] Marek Bonilla MD [address] [facility] [address], [place] [address] Scheduled Procedures Name Priority Associated [...] AM EDT) PT CLASS O RAD ADMITDTTM [id number] [facility] PT RAD INFO [id number]^Dave ^Magdalena RAD EXAM DESC XDXAC^BD Bone Density DEXA Axial Skeleton^RIS [facility] WORKSTATION ID RADDRIMAGE [facility] Anatomical Region Laterality Modality C-spine, Hip N/A [...] have questions please contact the health care mgr that requested your imaging first. ? Narrative [...] who have questions please contactthe health care mgr that requested your imaging first. Magdalena Acosta MD IMG DEXA ORDERABLES documented in this encounter Visit Diagnoses Not on filedocumented in this encounter Care Teams Hand Painter Relationship Specialty Start Date End Date Magdalena Acosta MD [address] [place] [address] PCP - General Family Medicine 02/05/23 documented as of this encounter
--- OUTSIDE RECORDS SUMMARY | 2024-06-01 14:12 | XMS_ITS | Encounter Summary ---
[place] [address] Care Team Providers Care Welding Equipment Repairer Supervisor Name Role Phone Magdalena Acosta MD Primary Care Provider [phone] Reason for Referral * Consultation (Routine) - Closed Specialty Diagnoses / Procedures Referred By Contac t Referred To Contact Hematology and Oncology Diagnoses Anemia, unspecified type Consuelo Guerrero DO [address] [place] [address] [address] [place] [address] [facility] [address] [place] [address] Referral ID Status Reason Start Date Expiration Date V isits Requested Visits Authorized [id number] Closed Consult, Test & Treat 04/11/2024 04/11/2025 1 1 Encounter Details Date Type Department Care Team (Late st Contact Info) Description 04/11/2024 Transcribe Orders eDH Incoming Referrals [phone] Consuelo Guerrero DO [address] [place] [address] [address] [place] [address] Anemia, unspecified type Social History Tobacco Use Types Packs/Day Years Used Date Smoking Tobacco: Never Smokeless Tobacco: Never Alcohol Use Standard Drinks/Week Comments No 0 (1 standard drink = 0.6 oz pur e alcohol) none [facility] Inpatient Questions Answer Date Recorded [...] Encounter Outpatient [place] [phone] Markel Borjas MD [facility] DR HEMATOLOGY [place] [address] 06/05/2024 2:00 PM EST - 06/05/2024 3:00 PM EST Surgery Outpatient [facility] [place] [phone] Markel Borjas MD [facility] DR HEMATOLOGY [place] [address] (OSC MSURG) BONE MARROW BIOPSY AND ASPIRATION; DIAGNOSTIC (WRVU 1.44) 06/23/2024 2:00 PM EST Office Visit Hematology and Oncology at [place] [phone] Markel Borjas MD [facility] DR [place] [address] 11/02/2024 12:00 PM EDT Appointment Pulmonology at [place] [phone] 11/02/2024 1:00 PM EDT Office Visit Rheumatology at [place] [phone] Magdalena Peralta MD [facility] [address] 03/01/2025 4:15 PM EDT Office Visit Dermatology at [place] [address] [facility] [place] [phone] Marek Bonilla MD [address] [facility] [address], [place] [address] Scheduled Procedures Name Priority Associated Diagnoses Date/Ti [...] type documented in this encounter Care Teams Welding Equipment Repairer Supervisor Relationship Specialty Start Date End Date Magdalena Acosta MD [address] [place] [address] PCP - General Family Medicine 02/05/23 documented as of this encounter
--- OUTSIDE RECORDS SUMMARY | 2024-06-01 14:12 | XMS_ITS | Encounter Summary ---
Author Organization [place] [address] Care Team Providers Care Ladle Liner Name Role Phone Magdalena Acosta MD Primary Care Provider [phone] Reason for Visit * Reason Comments Follow-up * Consultation (Routine) - Closed Specialty Diagnoses / Procedures Referred By Contac t Referred To Contact Hematology and Oncology Diagnoses Anemia, unspecified type Consuelo Guerrero, DO [address] [facility] [address] [place] [address] [facility] [address] [place] [address] Referral ID Status Reason Start Date Expiration Date V isits Requested Visits Authorized [id number] Closed Consult, Test & Treat 04/11/2024 04/11/2025 1 1 Encounter Details Date Type Department Care Team (Late st Contact Info) Description 05/12/2024 10:00 AM EDT Office Visit Hematology [place] [address] Markel Borjas MD [facility] DR [place] [address] Chronic idiopathic neutropenia Social History [...] 05/12/2024 10:00 AM EDT Hematology Outpatient Clinic [facility] Hematology Outpatient Consult Note CC: 60 year [...] TOUCH PREP, CLOT SECTION, CORE BIOPSY); [OSR# [id number], COLLECTED 06/23/2016, 19 SLIDES]: 1. 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 pantoprazole EC (Protonix) 40 [...] intact. Extremities: No edema. Labs: Hgb= 11.7 Zyhw=047 ANC= 2.5 Assessment: 60 year-old woman found [...] PM EST Hospital Encounter [place] [address] Markel Borjas MD [facility] [place] [address] 06/05/2024 2:00 PM EST - 06/05/2024 3:00 PM EST Surgery [place] [address] Markel Borjas MD [facility] DR [place] [address] (OSC MSURG) BONE MARROW BIOPSY AND ASPIRATION; DIAGNOSTIC (WRVU 1.44) 06/23/2024 2:00 PM EST Office Visit Hematology [place] [phone] Markel Borjas MD [facility] DR [place] [address] 11/02/2024 12:00 PM EDT Appointment Pulmonology at [place] [phone] 11/02/2024 1:00 PM EDT Office Visit Rheumatology at [place] [phone] Magdalena Peralta MD [facility] [place] [address] 03/01/2025 4:15 PM EDT Office Visit Dermatology at [address] [place] [phone] Marek Bonilla MD [address] [facility], [place] [address] Scheduled Orders Name Type Priority [...] - 2.50 % 05/12/2024 9:32 AM EDT [facility] Retic Abs # 0.0397 0.0200 - 0.1100 x10(6)/mcL 05/12/2024 9:32 AM EDT [facility] Immature Retic% 8.1 0.5 - 13.8 % 05/12/2024 9:32 AM EDT [facility] Reticulated Hgb 35.2 29.8 - 39.4 pg 05/12/2024 9:32 AM EDT [facility] Blood VENOUS BLOOD SPECIMEN / Unknown Venipuncture / Unknown 05/12/2024 8:56 AM EDT 05/12/2024 8:56 AM EDT Tova Russell HORTICULTURAL FARMWORKER HEMATOLOGY ORDERABL ES [facility] [place] [address] * (ABNORMAL) Comprehensive metabolic panel Non-fasting (05/12/2024 8:56 AM EDT) Pathologist [facility] Glucose 86 65 - 199 mg/dL 05/12/2024 11:36 AM [facility] Comment:Glucose Concentratio n >=200 mg/dL plus symptoms is consistent with Diabetes Mellitus. Blood Urea Nitrogen 20(H) 8 - 18 mg/dL 05/12/2024 11:36 AM EDT [facility] Creatinine 0.88 0.70 - 1.20 mg/dL 05/12/2024 11:36 AM EDT [facility] Sodium 145 135 - 145 mMol/L 05/12/2024 11:36 AM EDT [facility] Potassium 4.6 3.5 - 5.0 mMol/L 05/12/2024 11:36 AM EDT [facility] Chloride 109(H) 98 - 107 mMol/L 05/12/2024 11:36 AM EDT [facility] Carbon Dioxide 21(L) 22 - 31 mMol/L 05/12/2024 11:36 AM [facility] Anion Gap 15 5 - 15 mMol/L 05/12/2024 11:36 AM [facility] Comment:Not Calculated. Calcium 9.9 8.5 - 10.5 mg/dL 05/12/2024 11:36 AM [facility] Protein, Total 7.3 6.1 - 8.0 g/dL 05/12/2024 11:36 AM [facility] Albumin 4.5 3.2 - 5.2 g/dL 05/12/2024 11:36 AM [facility] Aspartate Aminotransferase 24 <=30 unit/L 05/12/2024 11:36 AM [facility] Alanine Aminotransferase 14 0 - 30 unit/L 05/12/2024 11:36 AM [facility] Alkaline Phosphatase 98 35 - 105 unit/L 05/12/2024 11:36 AM [facility] Bilirubin, Total 0.2 <=1.3 mg/dL 05/12/2024 11:36 AM [facility] Est Glomerular Filtration Rate - Female 72 mL/min/1. 73 m?? 05/12/2024 11:36 AM [facility] Comment: This patient's estimated GFR [...] Foundation Fasting Status No 05/12/2024 11:36 AM [facility] Blood VENOUS BLOOD SPECIMEN / Unknown Venipuncture / Unknown 05/12/2024 8:56 AM EDT 05/12/2024 8:56 AM EDT Tova Russell HORTICULTURAL FARMWORKER CHEMISTRY ORDERABLE S [facility] [place] [address] * (ABNORMAL) CBC (with Diff) (05/12/2024 8:56 AM EDT) White Blood Cell 3.47(L) 4.00 - 9.50 x10(3)/mc L 05/12/2024 9:32 AM EDT [facility] Red Blood Cell 3.31(L) 4.00 - 5.21 x10(6)/mc L 05/12/2024 9:32 AM EDT [facility] Hemoglobin 11.1(L) 11.7 - 15.5 g/dL 05/12/2024 9:32 AM EDT [facility] Hematocrit 33.2(L) 35.7 - 45.8 % 05/12/2024 9:32 AM EDT [facility] Mean Cell Volume 100.3(H) 82.6 - 94.4 fL 05/12/2024 9:32 AM EDT [facility] Mean Cell Hemoglobin 33.5(H) 27.1 - 32.0 pg 05/12/2024 9:32 AM EDT [facility] Mean Cell Hemoglobin Concentration 33.4 31.7 - 35.0 g/dL 05/12/2024 9:32 AM EDT [facility] Platelet 142(L) 145 - 357 x10(3)/mc L 05/12/2024 9:32 AM EDT [facility] Mean Platelet Volume 8.7 7.6 - 12.9 fL 05/12/2024 9:32 AM EDT [facility] RDW Standard Deviation 44.4 37.0 - 46.0 fL 05/12/2024 9:32 AM EDT [facility] RDW coefficient of variation 12.0 11.5 - 14.1 % 05/12/2024 9:32 AM [facility] NRBC% auto 0.0 % 05/12/2024 9:32 AM [facility] NRBC Absolute <0.01 <0.01 x10(3)/mc L 05/12/2024 9:32 AM [facility] Neutrophil % 69.7 % 05/12/2024 9:32 AM [facility] Neutrophil Absolute (ANC) - Automated 2.42 1.70 - 6.10 x10(3)/mc L 05/12/2024 9:32 AM [facility] Lymph % 16.7 % 05/12/2024 9:32 AM [facility] Lymph Absolute 0.58(L) 0.90 - 3.20 x10(3)/mc L 05/12/2024 9:32 AM [facility] Monocyte % 12.1 % 05/12/2024 9:32 AM [facility] Monocyte Absolute 0.42 0.30 - 0.90 x10(3)/mc L 05/12/2024 9:32 AM [facility] Eos % 0.6 % 05/12/2024 9:32 AM [facility] Eos Absolute <0.04 0.00 - 0.40 x10(3)/mc L 05/12/2024 9:32 AM [facility] Basophil % 0.6 % 05/12/2024 9:32 AM [facility] Baso Absolute <0.04 0.00 - 0.10 x10(3)/mc L 05/12/2024 9:32 AM [facility] Immature Gran % 0.3 % 9:32 AM [facility] Immature Gran Absolute <0.04 0.00 - 0.04 x10(3)/mc L 05/12/2024 9:32 AM [facility] Blood VENOUS BLOOD SPECIMEN / Unknown Venipuncture / Unknown 05/12/2024 8:56 AM EDT 05/12/2024 8:56 AM EDT Tova Russell HORTICULTURAL FARMWORKER HEMATOLOGY ORDERABL ES [facility] [place] [address] documented in this encounter Visit Diagnoses Diagnosis Chronic idiopathic neutropenia Other neutropenia documented in this encounter Care Teams Ladle Liner Relationship Specialty Start Date End Date Magdalena Acosta MD [address] [place] [address] PCP - General Family Medicine 02/05/23 documented as of this encounter
--- OUTSIDE RECORDS SUMMARY | 2024-06-01 14:12 | XMS_ITS | Encounter Summary ---
Author Organization [facility] Address [address] [place] [address] Care Team Providers Care Habilitation Assistant Name Role Phone Scott, Ashley WILLIAM Primary Care Provider [phone] Encounter Details Date Type Department Care Team (Late st Contact Info) Description 12/23/2016 Results Only [facility] [phone] Deborah Quiroga, DRYING TUNNEL OPERATOR [address] [place] [phone] Social History Tobacco Use Types Packs/Day Years [...] ? PURNIMA THACKER ? Accession #: ? [id number] ? : ? 1955 (Age: 61) ??F ?Collect Date: ? 12/23/2016 ? Location: ? [facility] ? Receive Date: ? 12/25/2016 ? Provider: DEBORAH QUIROGA CONSTRUCTION SITE MANAGER Copy to: ? Final Report SPECIMEN ADEQUACY ? Satisfactory for Evaluation - transformation zone component present GENERAL CATEGORIZATION ? Negative for Intraepithelial Lesion or Malignancy ?? Last Menstrual Period: years Specimen/Source: ??Pap Test, Cervix, ThinPrep Imaging System with manual evaluation Document reviewed and electronically signed by: ? Monica Cason [facility](ASCP) ? Report ??Date: 01/06/2017 09:11 HPV with Pap Test ? Date Ordered: ? 01/06/2017 ? Status: ?? Signed Out ?Date Complete: ? 01/07/2017 ? By: ??System Interface ? Date Reported: ? 01/07/2017 ? Interpretation RESULT: Negative for HPV. No E6 or E7 mRNA is detected from HPV types 16,18,31,33,35, 39,45,51,52,56,58, 59,66, and 68 by billing representative mediated amplification. Comments Document reviewed and electronically signed by: ? System Interface ? Report date: 01/07/2017 By the signature above, the attending physician certifies that he/she has personally conducted a gross and/or microscopic examination of the described specimens and rendered or confirmed the above diagnosis. End of Report [facility] 12/23/2016 12/25/2016 Deborah Quiroga DRYING TUNNEL OPERATOR PATHOLOGY ORDERABLES [facility] [address] [place] [address] documented in this encounter Visit Diagnoses Not on filedocumented in this encounter Care Teams Habilitation Assistant Relationship Specialty Start Date End Date Ashley Chavez ARNP [address] [place] [address] PCP - General 07/11/10 documented as of this encounter
--- OUTSIDE RECORDS SUMMARY | 2024-06-01 14:12 | XMS_ITS | Encounter Summary ---
Author Organization [facility] Address [address] [place] [address] Care Team Providers Care Law Firm Receptionist Name Role Phone Ashley Chavez Primary Care Provider [phone] Encounter Details Date Type Department Care Team (Late st Contact Info) Description 03/22/2024 Lab Requisition [facility] Pathology & Laboratory Medicine - [address] [address] Consuelo Guerrero, DO [address] [facility] [address] [place], [place] [address] Diaphragmatic hernia without obstruction or gangrene; Anemia, [...] explore management options, if applicable. 03/24/2024 10:36 [facility] Final Diagnosis A. [...] - Deeper sections x3 examined. 03/24/2024 10:36 [facility] Attestation There was significant resident/fellow involvement in the diagnostic evaluation of this case. By the signature below, the attending physician certifies that they have personally conducted a gross and/or microscopic examination of the described specimens and rendered or confirmed the above diagnosis. 03/24/2024 10:36 [facility] at 1036 Clinical History Anemia, hiatal hernia, 38 cm aguayo diverticulosis 03/24/2024 10:36 [facility] Gross Description A. Received [...] Luis Torres 03/22/2024 9:36 03/24/2024 10:36 EDT [facility] Resident/Estuardo w: Luis Felipe Bragg DO 03/24/2024 10:36 T [facility] Performing Lab [facility] 10:36 T [facility] Scanned Images 03/24/2024 10:36 T [facility] Tissue POLYP OF [...] 8:19 EDT Consuelo Guerrero DO PATHOLOGY ORDERABLES [facility] [address] [place] [address] documented in this encounter Visit Diagnoses Diagnosis Diaphragmatic hernia without obstruction or gangrene Diaphragmatic hernia without mention of obstruction or gangrene Anemia, unspecified documented in this encounter Care Teams Law Firm Receptionist Relationship Specialty Start Date End Date Ashley Chavez ARNP [address] [place] [address] PCP - General 07/11/10 documented as of this encounter
--- OUTSIDE RECORDS SUMMARY | 2024-06-01 14:12 | XMS_ITS | Referral Summary ---
Author Organization [facility] Address [address] [place] [address] Care Team Providers Care Ct Technologist Name Role Phone Ashley Chavez Primary Care Provider [phone] Encounters Date Type Department Care Team Description 03/22/2024 Lab Requisition [facility] Pathology & Laboratory [address] [address] Consuelo Guerrero, DO Diaphragmatic hernia without obstruction or gangrene; Anemia, unspecified 03/21/2024 Lab Requisition [facility] Pathology & Laboratory [address] [address] Consuelo Guerrero DO Encounter for other general examination 03/21/2024 Lab Requisition [facility] Pathology & Laboratory [address] [address] Outr Resulting Lab, Provider from Last 3 [...] 22:31 EDT [facility] BLOOD BANK Blood VENOUS BLOOD / Unknown 03/21/2024 13:00 EDT 03/21/2024 21:51 EDT Consuelo Guerrero DO BLOOD BANK TESTS Performing Organization Address [facility] Co de Phone Number [facility] BLOOD BANK [address] [place] [address] * HAPTOGLOBIN (03/21/2024 13:00 EDT) Haptoglobin 183 32 - 197 mg/dL 03/22/2024 10:25 EDT [facility] LABORATORY SERVICES Blood VENOUS BLOOD / Unknown 03/21/2024 13:00 EDT 03/21/2024 21:50 EDT Provider Outr Resulting Lab CHEMISTRY & BLOOD GAS ORDERABLES Performing Organization Address [facility] Co de Phone Number [facility] LABORATORY SERVICES [address] [place] [address] * SURGICAL PATHOLOGY (03/21/2024 11:35 EDT) Note to Patient The following pathology results have been interpreted by your pathologist and may be available to you before your health provider has had the opportunity to review them. Please allow time for your provider to receive these results and explore management options, if applicable. 03/24/2024 10:36 EDT [facility] Final Diagnosis A. JEJUNUM, PROXIMAL, [...] - Deeper sections x3 examined. 03/24/2024 10:36 [facility] Attestation There was significant resident/fellow involvement in the diagnostic evaluation of this case. By the signature below, the attending physician certifies that they have personally conducted a gross and/or microscopic examination of the described specimens and rendered or confirmed the above diagnosis. 03/24/2024 10:36 [facility] at [address]36 Clinical History Anemia, hiatal hernia, 38 cm aguayo diverticulosis 03/24/2024 10:36 [facility] Gross Description A. Received in [...] 10:36 EDT [facility]ORY [facility] Resident/Estuardo w: Luis Felipe Bragg DO 03/24/2024 10:36 EDT [facility]ORY [facility] Performing Lab [facility] 10:36 EDT [facility] Scanned Images 03/24/2024 10:36 EDT [facility] Tissue POLYP OF COLON / [...] PATHOLOGY ORDERABLES [facility] [address] [place] [address] from Last [address] Technologist Relationship Specialty Start Date End Date Ashley Chavez ARNP [address] [place] [address] PCP - General 07/11/10
--- OUTSIDE RECORDS SUMMARY | 2024-06-01 14:12 | XMS_ITS | Encounter Summary ---
Author Organization [facility] Address [address] [place] [address] Care Team Providers Care Fact Checker Name Role Phone Unavailable Primary Care Provider Unavailabl e Encounter Details Date Type Department Care Team (Late st Contact Info) Description 03/24/2007 11:06 EDT - 03/24/2007 11:59 EDT Hospital Encounter [facility] - Other [address] [place] [address] Ashley Chavez ARNP [address] [place] [address] Discharge Disposition: Home or Self Care Social [...]
--- OUTSIDE RECORDS SUMMARY | 2024-06-01 14:12 | XMS_ITS | Encounter Summary ---
Author Organization [facility] Address [address] [place] [address] Care Team Providers Care Toppiece Chopper Name Role Phone Ashley Chavez Primary Care Provider [phone] Encounter Details Date Type Department Care Team (Latest Contact Info) Description 05/12/2019 13:18 EDT - 05/12/2019 23:59 EDT Hospital Encounter [address] [address] Unknown, Provider, MD Discharge Disposition: Home or Self Care Social [...] on filedocumented in this encounter Care Teams Toppiece Chopper Relationship Specialty Start Date End Date Ashley Chavez ARNP [address] [place] [address] PCP - General 07/11/10 documented as of this encounter
--- OUTSIDE RECORDS SUMMARY | 2024-06-01 14:12 | XMS_ITS | Encounter Summary ---
Author Organization [facility] Address [address] [place] [address] Care Team Providers Care Mill Tender Warm Up Name Role Phone Ashley Chavez Primary Care Provider [phone] Encounter Details Date Type Department Care Team (Late st Contact Info) Description 10/30/2022 Lab Requisition [facility] Pathology & Laboratory Medicine - [address] [address] Outr Resulting Lab, Provider Social History Tobacco [...] <12.3 <30.0 IU/mL 11/03/2022 13:08 EDT [facility] Comment: ? Negative: ??<30.0 IU/mL ? Borderline Positive: ??30.0 - 75.0 IU/mL ? Positive: ??>75.0 IU/mL Results were obtained with the INOVA QUANTA Lite dsDNA SC DOMO assay on the Definition 6 DSX. Blood VENOUS BLOOD / Unknown 10/29/2022 14:00 EDT 10/30/2022 19:27 EDT Provider Outr Resulting Lab IMMUNOLOGY A ND SEROLOGY ORDERABLES Performing Organization Address [facility] [[email or web address]] de Phone Number [facility] [address] [place] [address] * SM (MORENO) ANTIBODY (10/29/2022 14:00 EDT) [facility] SM (Moreno) Antibody 18.5 <20.0 Units 11/03/2022 14:26 EDT [facility] Comment: ? Negative: <20.0 Units [...] A ND SEROLOGY ORDERABLES Performing Organization Address [facility] [[email or web address]] de Phone Number [facility] [address] [place] [address] documented in this encounter Visit Diagnoses Not on filedocumented in this encounter Care Teams Mill Tender Warm Up Relationship Specialty Start Date End Date Ashley Chavez ARNP [address] [place] [address] PCP - General 07/11/10 documented as of this encounter
--- OUTSIDE RECORDS SUMMARY | 2024-06-01 14:12 | XMS_ITS | Encounter Summary ---
Author Organization [facility] Address [facility] [place] [address] Care Team Providers Care Media Services Director Name Role Phone Magdalena Acosta MD Primary Care Provider Reason for Visit * Reason Onset Date Comments Medication Refill 05/24/2024 Encounter Details Date Type Department Care Team (Late st Contact Info) Description 05/24/2024 [place] [address] Magdalena Peralta MD [facility] [place] [address] Social History Tobacco Use Types Packs/Day Years [...] 200 mg tablet [facility] - [facility], [place] - [address] [facility] [address] [place] [address] documented in this encounter Plan of Treatment Upcoming Encounters Date Type Department Care Team (Late st Contact Info) Description 06/05/2024 2:00 PM EST Hospital Encounter [facility] [place] [phone] Markel Borjas MD [facility] DR HEMATOLOGY [place] [address] 06/05/2024 2:00 PM EST - 06/05/2024 3:00 PM EST Surgery [facility]patient [place] [address] Markel Borjas MD [facility] DR HEMATOLOGY [place] [address] (OSC MSURG) BONE MARROW BIOPSY AND ASPIRATION; DIAGNOSTIC (WRVU 1.44) 06/23/2024 2:00 PM EST Office Visit Hematology [place] [phone] Markel Borjas MD [facility] DR HEMATOLOGY [place] [address] 11/02/2024 12:00 PM EDT [place]oint[place] [address] 11/02/2024 1:00 PM EDT Office Visit Rheumatology at [place] [phone] Magdalena Peralta MD [facility] [place] [address] 03/01/2025 4:15 PM EDT Office Visit Dermatology at [place] [address] [place] [address] Marek Bonilla MD [address], [place] [address] Scheduled Procedures Name Priority Associated Diagnoses Date/Ti me (OSC MSURG) BONE MARROW BIOPSY AND ASPIRATION; DIAGNOSTIC (WRVU 1.44) Anemia, in pt with longstanding neutropenia 06/05/2024 2:00 PM EST documented as of this encounter Visit Diagnoses Not on filedocumented in this encounter Care Teams Media Services Director Relationship Specialty Start Date End Date Magdalena Acosta MD [address] [place] [address] PCP - General Family Medicine 02/05/23 documented as of this encounter
--- OUTSIDE RECORDS SUMMARY | 2024-06-01 14:12 | XMS_ITS | Encounter Summary ---
Author Organization [facility] Address [address] [place] [address] Care Team Providers Care Regrader Name Role Phone Scott Ashley WILLIAM Primary Care Provider [phone] Encounter Details Date Type Department Care Team (Late st Contact Info) Description 11/10/2013 Results Only [facility] [phone] Jeni Laird, FAMILY RESOURCE MANAGEMENT SPECIALIST [address] [place], [place] [phone] Social History Tobacco Use Types Packs/Day Years [...] ? PURNIMA THACKER ? Accession #: ? [id number] : ? 1955 (Age: 58) ??F ?Collect Date: ? 11/10/2013 Location: ? [facility] ? Receive Date: ? 11/14/2013 Provider: ?JENI LAIRD FAMILY RESOURCE MANAGEMENT SPECIALIST Copy to: ? Specimen/Source: ?Pap Test, [...] Report PAUL ARELLANO 11/10/2013 11/14/2013 Jeni Laird FAMILY RESOURCE MANAGEMENT SPECIALIST PATHOLOGY ORDERAB LES Performing Organization Address City/State/[facility] Co de Phone Number PAUL ARELLANO [address] [place] [address] documented in this encounter Visit Diagnoses Not on filedocumented in this encounter Care Teams Regrader Relationship Specialty Start Date End Date Ashley Chavez ARNP [address] [place] [address] PCP - General 07/11/10 documented as of this encounter
--- OUTSIDE RECORDS SUMMARY | 2024-06-01 14:12 | XMS_ITS | Encounter Summary ---
Author Organization [facility] Address [address] [place] [address] Care Team Providers Care Ticket Puller Name Role Phone Unavailable Primary Care Provider Unavailabl e Encounter Details Date Type Department Care Team (Late st Contact Info) Description 04/20/2005 Results Only [facility] [address] [place] [address] Ziggy Valiente MD [address] [place] [phone] Social History Tobacco Use Types Packs/Day Years [...] ? PURNIMA THACKER ? Accession #: ? [id number] ? : ? 1955 (Age: 49) ??F [...] correlation with endoscopic appearance is recommended. (Dr. Chino)/[facility] Document reviewed and electronically signed [...] entirely submitted in one cassette. ??(Arabella Santos)/[facility] End of Report PAUL ARELLANO 04/20/2005 04/21/2005 15: 04 EDT Ziggy Valiente MD PATHOLOGY ORDERABLES PAUL ARELLANO [address] [place] [address] documented in this encounter Visit Diagnoses Not on filedocumented in this encounter
--- OUTSIDE RECORDS SUMMARY | 2024-06-01 14:12 | XMS_ITS | Encounter Summary ---
Author Organization [facility] Address [address] [place] [address] Care Team Providers Care Captain Cannery Tender Name Role Phone Scott, Ashley WILLIAM Primary Care Provider [phone] Encounter Details Date Type Department Care Team (Late st Contact Info) Description 03/21/2024 Lab Requisition [place] Pathology & Laboratory Medicine - [address] [address] Consuelo Guerrero, DO [address] [place], [place] [address] Encounter for other general examination Social History [...] 13:00 EDT) LORY Negative 03/21/2024 22:31 EDT [facility] BLOOD BANK Blood VENOUS BLOOD / Unknown 03/21/2024 13:00 EDT 03/21/2024 21:51 EDT Consuelo Guerrero DO BLOOD BANK TESTS [facility]LOOD [facility] [address] [place] [address] documented in this encounter Visit Diagnoses Diagnosis Encounter for other general examination documented in this encounter Care Teams Captain Cannery Tender Relationship Specialty Start Date End Date Ashley Chavez ARNP [address] [place] [address] PCP - General 07/11/10 documented as of this encounter
--- OUTSIDE RECORDS SUMMARY | 2024-06-01 14:12 | XMS_ITS | Encounter Summary ---
Author Organization [facility] Address [address] [place] [address] Care Team Providers Care Director Of Automation Name Role Phone Ashley Chavez Primary Care Provider [phone] Encounter Details Date Type Department Care Team (Late st Contact Info) Description 05/12/2022 Lab Requisition [facility] Pathology & Laboratory Medicine - [address] [address] Outr Resulting Lab, Provider Social History Tobacco [...] 14:32 EDT) Hold Hold 05/12/2022 22:46 EDT [facility] Blood VENOUS BLOOD / Unknown 05/12/2022 14:32 EDT 05/12/2022 21:40 EDT Provider Outr Resulting Lab LAB INFO SER VICE AND SUPPORT & PHONE RESULT Performing Organization Address [facility]/ZIP Co de Phone Number [facility] [address] [place] [address] * (ABNORMAL) HOMOCYSTEINE (05/12/2022 14:32 EDT) Homocysteine 14.7(H) 5.0 - 13.9 umol/L 05/13/2022 9:05 EDT [facility] Comment:Results may be false ly elevated if sample is not collected on ice or is not removed from cells within 1 hour of collection. Blood VENOUS BLOOD / Unknown 05/12/2022 14:32 EDT 05/12/2022 21:40 EDT Narrative [facility] - 05/13/2022 9:05 [...] GAS ORDERABLES Performing Organization Address [facility] Co de Phone Number [facility] [address] [place] [address] * HAPTOGLOBIN (05/12/2022 14:32 EDT) Pathologist [facility] Haptoglobin 138 32 - 197 mg/dL 05/13/2022 9:55 EDT [facility] Blood VENOUS BLOOD / Unknown 05/12/2022 14:32 EDT 05/12/2022 21:36 EDT Provider Outr Resulting Lab CHEMISTRY & BLOOD GAS ORDERABLES Performing Organization Address [facility] Co de Phone Number [facility] [address] [place] [address] * (ABNORMAL) ANTI NUCLEAR AB (FRANCISCO), IFA (05/12/2022 14:32 EDT) FRANCISCO Interpretation Positive(A) Negative 05/13/2022 14:44 EDT [facility] Comment: Result is [...] Pattern 1 1:5120 Speckled 05/13/2022 14:44 EDT [facility] Blood VENOUS BLOOD / Unknown 05/12/2022 14:32 EDT 05/12/2022 21:36 EDT Narrative [facility] - 05/13/2022 14:44 EDT Results were obtained with the INOVA NOVA Lite HEp-2 FRANCISCO Kit by indirect immunofluorescence. Provider Outr Resulting Lab IMMUNOLOGY A ND SEROLOGY ORDERABLES [facility] [address] [place] [address] documented in this encounter Visit Diagnoses Not on filedocumented in this encounter Care Teams Director Of Automation Relationship Specialty Start Date End Date Ashley Chavez ARNP [address] [place] [address] PCP - General 07/11/10 documented as of this encounter
--- OUTSIDE RECORDS SUMMARY | 2024-06-01 14:12 | XMS_ITS | Clinical Summary ---
Author Organization [facility] Address [address] [place] [address] Care Team Providers Care Core Shaper Sides Name Role Phone Ashley Chavez Primary Care Provider [phone] Encounters Date Type Department Care Team Description 03/22/2024 Lab Requisition [facility] Pathology & Laboratory [address] [address] Consuelo Guerrero, DO Diaphragmatic hernia without obstruction or gangrene; Anemia, unspecified 03/21/2024 Lab Requisition [facility] Pathology & Laboratory [address] [address] Consuelo Guerrero, DO Encounter for other general examination 03/21/2024 Lab Requisition [facility] Pathology & Laboratory [address] [address] Outr Resulting Lab, Provider from Last 3 [...] 13:00 EDT) LORY Negative 03/21/2024 22:31 EDT [facility] BLOOD BANK Blood VENOUS BLOOD / Unknown 03/21/2024 13:00 EDT 03/21/2024 21:51 EDT Consuelo Guerrero DO BLOOD BANK TESTS Performing Organization Address [facility] Co de Phone Number [facility] [address] [place] [address] * HAPTOGLOBIN (03/21/2024 13:00 EDT) Haptoglobin 183 32 - 197 mg/dL 03/22/2024 10:25 EDT [facility] Blood VENOUS BLOOD / Unknown 03/21/2024 13:00 EDT 03/21/2024 21:50 EDT Provider Outr Resulting Lab CHEMISTRY & BLOOD GAS ORDERABLES Performing Organization Address [facility]/ZIP Co de Phone Number [facility] [address] [place], [place] [address] * SURGICAL PATHOLOGY (03/21/2024 11:35 EDT) Note to Patient The following pathology results have been interpreted by your pathologist and may be available to you before your health provider has had the opportunity to review them. Please allow time for your provider to receive these results and explore management options, if applicable. 03/24/2024 10:36 EDT [facility] Final Diagnosis A. JEJUNUM, [...] - Deeper sections x3 examined. 03/24/2024 10:36 [facility] Attestation There was significant resident/fellow involvement in the diagnostic evaluation of this case. By the signature below, the attending physician certifies that they have personally conducted a gross and/or microscopic examination of the described specimens and rendered or confirmed the above diagnosis. 03/24/2024 10:36 [facility] at [address] Clinical History Anemia, hiatal hernia, 38 cm aguayo diverticulosis 03/24/2024 10:36 [facility] Gross Description A. Received [...] Luis Torres 03/22/2024 9:36 03/24/2024 10:36 EDT [facility] Resident/Estuardo w: Luis Felipe Bragg DO 03/24/2024 10:36 EDT [facility] Performing Lab [facility] 10:36 EDT [facility] Scanned Images 03/24/2024 10:36 EDT [facility] Tissue POLYP OF COLON [...] 8:19 EDT Consuelo Guerrero DO PATHOLOGY ORDERABLES [facility] [address] [place] [address] from Last 3 Months Care Teams Core Shaper Sides Relationship Specialty Start Date End Date Ashley Chavez ARNP [address] [place] [address] PCP - General 07/11/10
--- OUTSIDE RECORDS SUMMARY | 2024-06-01 14:12 | XMS_ITS | Encounter Summary ---
Author Organization [facility] Address [address] [place] [address] Care Team Providers Care Finisher Cold Rolling Name Role Phone Unavailable Primary Care Provider Unavailabl e Encounter Details Date Type Department Care Team (Late st Contact Info) Description 03/24/2007 Results Only [facility] Non-Invasive Cardiology - [facility] [address] [place], [place] [address] Ashley Chavez ARNP [address] [place] [address] Social History Tobacco Use Types Packs/Day Years [...] ? PURNIMA THACKER ? Accession #: ? [id number] : ? 1955 (Age: 51) ??F ?Collect Date: ? 03/24/2007 Location: ? [facility] ? Receive Date: ? 03/28/2007 Provider: ?ASHLEY THOMAS Copy to: ? Specimen/Source: ?ThinPrep Pap Test, Endocervix, processed on [email or web address] ThinPrep Imaging System, with manual evaluation Last [...] Ashley THOMAS PATHOLOGY ORDERABLES PAUL ARELLANO [address] [place] [address] documented in this encounter Visit Diagnoses Not on filedocumented in this encounter
--- OUTSIDE RECORDS SUMMARY | 2024-06-01 14:12 | XMS_ITS | Encounter Summary ---
Author Organization [facility] [place] [address] Care Team Providers Care Tour Manager Name Role Phone Magdalena Acosta MD Primary Care Provider [phone] Encounter Details Date Type Department Care Team (Late st Contact Info) Description 05/18/2024 Interpretation Only [address] [phone] Magdalena Acosta MD [address] [place], [place] [id number] Social History Tobacco Use Types Packs/Day Years [...] PM EST Hospital Encounter Outpatient [place] [phone] Markel Borjas MD [facility] DR HEMATOLOGY [place] [address] 06/05/2024 2:00 PM EST - 06/05/2024 3:00 PM EST Surgery Outpatient [place] [address] Markel Borjas MD [facility] DR HEMATOLOGY [place] [address] (OSC MSURG) BONE MARROW BIOPSY AND ASPIRATION; DIAGNOSTIC (WRVU 1.44) 06/23/2024 2:00 PM EST Office Visit Hematology and Oncology at [address] Markel Borjas MD [facility] HEMATOLOGY [place] [address] 11/02/2024 12:00 PM EDT Appointment Pulmonology at [place] [address] 11/02/2024 1:00 PM EDT Office Visit Rheumatology at [place] [address] Magdalena Peralta MD [facility] [place] [address] 03/01/2025 4:15 PM EDT Office Visit Dermatology at [address] [place] [address] Marek Bonilla MD [address] [place] [address] Scheduled Procedures Name Priority Associated [...] AM EDT) PT CLASS O RAD ADMITDTTM [id number] RAD PT RAD INFO [id number]^Dave ^Magdalena RAD EXAM DESC MADDSCCH^MG Mammo Digital [...] who have questions please contact the health vp care management that requested your imaging first. ? Electronically signed by: Rocael Villatoro MD, [facility] ([phone]), at 05/18/2024 3:[address] [place], [place] ??[address] Narrative 05/18/2024 3:05 PM EDT EXAMINATION: MG [...] patients who have questions please contactthe health vp care management that requested your imaging first. Electronically signed by: Rocael Villatoro MD, [facility]([phone]), at 05/18/2024 3:[address] [place] [address] Magdalena Acosta MD [facility] documented in this encounter Visit Diagnoses Not on filedocumented in this encounter Care Teams Tour Manager Relationship Specialty Start Date End Date Magdalena Acosta MD [address] [place] [address] PCP - General Family Medicine 02/05/23 documented as of this encounter
--- OUTSIDE RECORDS SUMMARY | 2024-06-01 14:12 | XMS_ITS | Encounter Summary ---
Author Organization [facility] Address [facility] [place] [address] Care Team Providers Care Willow Specialists Name Role Phone Magdalena Acosta MD Primary Care Provider [phone] Encounter Details Date Type Department Care Team (Latest Contact Info) Description 05/12/2024 9:00 AM EDT Laboratory Appointment Lab at [facility] Hematology Oncology [address] [place] [address] S/P TAVR (transcatheter aortic valve replacement); Chronic idiopathic neutropenia Social History Tobacco Use Types Packs/Day Years Used Date Smoking Tobacco: Never Smokeless Tobacco: Never Alcohol Use Standard Drinks/Week Comments No 0 (1 standard drink = 0.6 oz pur e alcohol) none [facility] Inpatient Questions Answer Date Recorded Does [...] PM EST Hospital Encounter [place] [phone] Markel Borjas MD [facility] [address] [place] [address] 06/05/2024 2:00 PM EST - 06/05/2024 3:00 PM EST Surgery [place] [phone] [facility] [address] [place] [address] (OSC MSURG) BONE MARROW BIOPSY AND ASPIRATION; DIAGNOSTIC (WRVU 1.44) 06/23/2024 2:00 PM EST Office Visit Hematology and Oncology at [place] [phone] [facility] [address] [place] [address] 11/02/2024 12:00 PM EDT Appointment [place] [address] 11/02/2024 1:00 PM EDT Office Visit Rheumatology at [address] [facility] [place] [address] 03/01/2025 4:15 PM EDT Office Visit Dermatology at [place] [address] [place] [phone] Marek Bonilla MD [address] [place] [address] Scheduled Procedures Name Priority Associated Diagnoses Date/Ti [...] - 2.50 % 05/12/2024 9:32 AM EDT [facility] Retic Abs # 0.0397 0.0200 - 0.1100 x10(6)/mcL 05/12/2024 9:32 AM EDT [facility] Immature Retic% 8.1 0.5 - 13.8 % 05/12/2024 9:32 AM EDT [facility] Reticulated Hgb 35.2 29.8 - 39.4 pg 05/12/2024 9:32 AM EDT [facility] Blood VENOUS BLOOD SPECIMEN / Unknown Venipuncture / Unknown 05/12/2024 8:56 AM EDT 05/12/2024 8:56 AM EDT Tova Russell COMPLIANCE COUNSEL HEMATOLOGY ORDERABL ES [facility] [place] [address] * (ABNORMAL) Comprehensive metabolic panel Non-fasting (05/12/2024 8:56 AM EDT) Glucose 86 65 - 199 mg/dL 05/12/2024 11:36 AM EDT [facility] Comment:Glucose Concentratio n >=200 mg/dL plus symptoms is consistent with Diabetes Mellitus. Blood Urea Nitrogen 20(H) 8 - 18 mg/dL 05/12/2024 11:36 AM EDT [facility] Creatinine 0.88 0.70 - 1.20 mg/dL 05/12/2024 11:36 AM EDT [facility] Sodium 145 135 - 145 mMol/L 05/12/2024 11:36 AM [facility] Potassium 4.6 3.5 - 5.0 mMol/L 05/12/2024 11:36 AM [facility] Chloride 109(H) 98 - 107 mMol/L 05/12/2024 11:36 AM [facility] Carbon Dioxide 21(L) 22 - 31 mMol/L 05/12/2024 11:36 AM [facility] Anion Gap 15 5 - 15 mMol/L 05/12/2024 11:36 AM [facility] Comment:Not Calculated. Calcium 9.9 8.5 - 10.5 mg/dL 05/12/2024 11:36 AM [facility] Protein, Total 7.3 6.1 - 8.0 g/dL 05/12/2024 11:36 AM [facility] Albumin 4.5 3.2 - 5.2 g/dL 05/12/2024 11:36 AM [facility] Aspartate Aminotransferase 24 <=30 unit/L 05/12/2024 11:36 AM [facility] Alanine Aminotransferase 14 0 - 30 unit/L 05/12/2024 11:36 AM [facility] Alkaline Phosphatase 98 35 - 105 unit/L 05/12/2024 11:36 AM [facility] Bilirubin, Total 0.2 <=1.3 mg/dL 05/12/2024 11:36 AM [facility] Est Glomerular Filtration Rate - Female 72 mL/min/1. 73 m?? 05/12/2024 11:36 AM [facility] Comment: This patient's estimated GFR [...] Fasting Status No 05/12/2024 11:36 AM EDT [facility] Blood VENOUS BLOOD SPECIMEN / Unknown Venipuncture / Unknown 05/12/2024 8:56 AM EDT 05/12/2024 8:56 AM EDT Tova Russell COMPLIANCE COUNSEL CHEMISTRY ORDERABLE S [facility] [place] [address] * (ABNORMAL) CBC (with Diff) (05/12/2024 8:56 AM EDT) White Blood Cell 3.47(L) 4.00 - 9.50 x10(3)/mc L 05/12/2024 9:32 AM EDT [facility] Red Blood Cell 3.31(L) 4.00 - 5.21 x10(6)/mc L 05/12/2024 9:32 AM T [facility] Hemoglobin 11.1(L) 11.7 - 15.5 g/dL 05/12/2024 9:32 AM [facility] Hematocrit 33.2(L) 35.7 - 45.8 % 05/12/2024 9:32 AM [facility] Mean Cell Volume 100.3(H) 82.6 - 94.4 fL 05/12/2024 9:32 AM [facility] Mean Cell Hemoglobin 33.5(H) 27.1 - 32.0 pg 05/12/2024 9:32 AM [facility] Mean Cell Hemoglobin Concentration 33.4 31.7 - 35.0 g/dL 05/12/2024 9:32 AM [facility] Platelet 142(L) 145 - 357 x10(3)/mc L 05/12/2024 9:32 AM [facility] Mean Platelet Volume 8.7 7.6 - 12.9 fL 05/12/2024 9:32 AM [facility] RDW Standard Deviation 44.4 37.0 - 46.0 fL 05/12/2024 9:32 AM [facility] RDW coefficient of variation 12.0 11.5 - 14.1 % 05/12/2024 9:32 AM [facility] NRBC% auto 0.0 % 05/12/2024 9:32 AM [facility] NRBC Absolute <0.01 <0.01 x10(3)/mc L 05/12/2024 9:32 AM [facility] Neutrophil % 69.7 % 05/12/2024 9:32 AM [facility] Neutrophil Absolute (ANC) - Automated 2.42 1.70 - 6.10 x10(3)/mc L 05/12/2024 9:32 AM [facility] Lymph % 16.7 % 05/12/2024 9:32 AM [facility] Lymph Absolute 0.58(L) 0.90 - 3.20 x10(3)/mc L 05/12/2024 9:32 AM [facility] Monocyte % 12.1 % 05/12/2024 9:32 AM [facility] Monocyte Absolute 0.42 0.30 - 0.90 x10(3)/mc L 05/12/2024 9:32 AM [facility] Eos % 0.6 % 05/12/2024 9:32 AM [facility] Eos Absolute <0.04 0.00 - 0.40 x10(3)/mc L 05/12/2024 9:32 AM [facility] Basophil % 0.6 % 05/12/2024 9:32 AM [facility] Baso Absolute <0.04 0.00 - 0.10 x10(3)/mc L 05/12/2024 9:32 AM EDT [facility] Immature Gran % 0.3 % 9:32 AM EDT [facility] Immature Gran Absolute <0.04 0.00 - 0.04 x10(3)/mc L 05/12/2024 9:32 AM EDT [facility] Blood VENOUS BLOOD SPECIMEN / Unknown Venipuncture / Unknown 05/12/2024 8:56 AM EDT 05/12/2024 8:56 AM EDT Tova Russell COMPLIANCE COUNSEL HEMATOLOGY ORDERABL ES [facility] [place] [address] documented in this encounter Visit Diagnoses Diagnosis S/P TAVR (transcatheter aortic valve replacement) Chronic idiopathic neutropenia Other neutropenia documented in this encounter Care Teams Willow Specialists Relationship Specialty Start Date End Date Magdalena Acosta MD [address] [place] [address] PCP - General Family Medicine 02/05/23 documented as of this encounter
--- OUTSIDE RECORDS SUMMARY | 2024-06-01 14:12 | XMS_ITS | Encounter Summary ---
Author Organization [facility] Address [address] [place] [address] Care Team Providers Care Parent Trainer Name Role Phone Unavailable Primary Care Provider Unavailabl e Encounter Details Date Type Department Care Team (Late st Contact Info) Description 07/08/2010 10:55 EST - 07/08/2010 10:56 EST Hospital Encounter [facility] - Other [address] [place] [address] Ashley Chavez, WILLIAM [address] [place] [address] Discharge Disposition: Home or Self Care Social [...]
--- OUTSIDE RECORDS SUMMARY | 2024-06-01 14:12 | XMS_ITS | Encounter Summary ---
Author Organization [facility] Address [address] [place] [address] Care Team Providers Care Geotechnical Intern Name Role Phone Scott Ashley WILLIAM Primary Care Provider [phone] Encounter Details Date Type Department Care Team (Late st Contact Info) Description 05/12/2019 Results Only [facility] [phone] Nadira Gregorio MD [address] [place] [phone] Social History Tobacco Use Types Packs/Day [...] ? PURNIMA THACKER ? Accession #: ? [id number] ? : ? 1955 (Age: 63) ??F ? Collect Date: ? 05/12/2019 ? Location: ? [facility] ? Receive Date: ? 05/12/2019 ? Provider: NADIRA GREGORIO MD Copy to: WINTER HANKINS HEAD TRACK COACH ? Final Pathologic Diagnosis: COLON, CECUM, POLYP, [...] (ASCP) 05/12/2019 6:[address] [facility] 05/12/2019 16:0 3 EDT 05/12/2019 16:03 EDT Nadira Gregorio MD PATHOLOGY ORDERABLES [facility] [address] [place] [address] documented in this encounter Visit Diagnoses Not on filedocumented in this encounter Care Teams Geotechnical Intern Relationship Specialty Start Date End Date Ashley Chavez ARNP [address] [place] [address] PCP - General 07/11/10 documented as of this encounter
--- OUTSIDE RECORDS SUMMARY | 2024-06-01 14:12 | XMS_ITS | Encounter Summary ---
Author Organization [facility] Address [address] [place] [address] Care Team Providers Care Inspector Fuel Hose Name Role Phone Ashley Chavez Primary Care Provider [phone] Encounter Details Date Type Department Care Team (Late st Contact Info) Description 12/17/2021 Lab Requisition [facility] - [address] [address] Outr Resulting Lab, Provider Social History Tobacco [...] Lyme Ab Negative Negative 12/18/2021 10:[address] [facility] Blood VENOUS BLOOD / Unknown 12/17/2021 13:30 EDT 12/17/2021 21:32 EDT Provider Outr Resulting Lab IMMUNOLOGY A ND SEROLOGY ORDERABLES Performing Organization Address [facility] Co de Phone Number [facility] [address] [place] [address] * (ABNORMAL) ANTI NUCLEAR AB (FRANCISCO), IFA (12/17/2021 13:30 EDT) FRANCISCO Interpretation Positive(A) Negative 12/18/2021 16:[address] [facility] Comment: For titers greater [...] Pattern 1 1:1280 Speckled 12/18/2021 16:[address] [facility] Blood VENOUS BLOOD / Unknown 12/17/2021 13:30 EDT 12/17/2021 21:[address] [facility] - 12/18/2021 16:06 EDT Results were obtained with the INOVA NOVA Lite HEp-2 FRANCISCO Kit by indirect immunofluorescence. Provider Outr Resulting Lab IMMUNOLOGY A ND SEROLOGY ORDERABLES Performing Organization Address [facility] Co de Phone Number [facility] [address] [place] [address] documented in this encounter Visit Diagnoses Not on filedocumented in this encounter Care Teams Inspector Fuel Hose Relationship Specialty Start Date End Date Ashley Chavez ARNP [address] [place] [address] PCP - General 07/11/10 documented as of this encounter
--- OUTSIDE RECORDS SUMMARY | 2024-06-01 14:12 | XMS_ITS | Encounter Summary ---
Author Organization [facility] Address [address] [place] [address] Care Team Providers Care Parts Counterperson Name Role Phone Unavailable Primary Care Provider Unavailabl e Encounter Details Date Type Department Care Team (Late st Contact Info) Description 06/29/2007 Results Only [facility] - Maple conversion [address] [place] [address] Sánchez Acevdeo MD [address] [place] [address] Social History Tobacco Use Types Packs/Day Years [...] reading/interpreti ng unformatted reports. Name: ? PURNIMA THACEKR ? Accession #: ? [id number] ? : ? 1955 (Age: 51) ??F [...] covered by a smooth white serosa. ??Three credit representative sections of the gallbladder are submitted in one cassette. ??(Sriram Elias/[facility] End of Report [facility] 06/29/2007 06/29/2007 21: 23 EST Sánchez Acevedo MD PATHOLOGY ORDERABLE S [facility] [address] [place] [address] documented in this encounter Visit Diagnoses Not on filedocumented in this encounter
--- OUTSIDE RECORDS SUMMARY | 2024-06-01 14:12 | XMS_ITS | Clinical Summary ---
Author Organization [facility] Address [facility] [place] [address] Care Team Providers Care Hand Wrapper Operator Name Role Phone Magdalena Acosta MD Primary Care Provider [phone] Allergies No known active allergies Medications Medication [...] pain -05/11.). 30 tablet 5 09/25/2016 Active Additional Information Patient not taking.Reported on 06/01/2024 amoxicillin (AMOXIL) 500 mg Tablet Take 2,000 [...] fraction 05/08/2023 Mild coronary artery disease by [facility] 11/09/2022 Heart failure with reduced [...] Encounters Date Type Department Care Team Description 06/01/2024 10:00 AM EDT Office [place] [address] Magdalena Peralta MD Mixed connective tissue disease 05/31/2024 Travel 05/24/2024 Refill [place] [address] Magdalena Peralta MD 05/18/2024 Interpretation Only [address] [address] Magdalena Acosta MD 05/18/2024 Interpretation Only [address] [address] Magdalena Acosta MD 05/12/2024 10:00 AM EDT Office Visit Hematology [place] [phone] Markel Borjas MD Chronic idiopathic neutropenia 05/12/2024 9:00 AM EDT Laboratory Appointment Lab at [facility] Hematology Oncology [address] [place] [address] S/P TAVR (transcatheter aortic valve replacement); Chronic idiopathic neutropenia 05/12/2024 Travel 05/10/2024 Travel 04/11/2024 Transcribe Orders eDH Incoming Referrals [phone] Consuelo Guerrero, DO Anemia, unspecified type 03/01/2024 Telephone Cardiology at [address] [phone] Cynthia Monsalve RN Pre Procedure Call (DAPT [...] Mass Index 35.52 06/01/2024 9:47 AM EDT Plan of Treatment Upcoming Encounters Date Type Department Care Team (Late st Contact Info) Description 06/05/2024 2:00 PM EST Hospital Encounter [place] [address] Markel Borjas MD [facility] DR HEMATOLOGY [place] [address] 06/05/2024 2:00 PM EST - 06/05/2024 3:00 PM EST Surgery [place] [phone] Markel Borjas MD [facility] DR HEMATOLOGY [place] [address] (OSC MSURG) BONE MARROW BIOPSY AND ASPIRATION; DIAGNOSTIC (WRVU 1.44) 06/23/2024 2:00 PM EST Office Visit Hematology [place] [address] Markel Borjas MD [facility] HEMATOLOGY [place] [address] 11/02/2024 12:00 PM EDT Appointment [place] [phone] 11/02/2024 1:00 PM EDT Office Visit [place] [address] Magdalena Peralta MD [facility] [place] [address] 03/01/2025 4:15 PM EDT Office Visit Dermatology at [place] [address] [place] [phone] Marek Bonilla MD [address] [place] [address] Scheduled Procedures Name Priority Associated Diagnoses Date/Ti [...] 05/18/2024, 06/05/2021 Medical Devices Implanted Type Area Asphalt Spreader Operator Device Identifier Shelf Expiration Date Model / Serial / Lot Valve,Aor,Pericar d,Magna,25mm ([id number]) - [id number] Implanted:Qty: 1 on 09/21/2016 by Alirio Esparza MD at [facility] IMPLANTS N/A: Heart DO NOT USE [employer] - [id number] 06/02/2020 [id number] / / [id number] Cable,Blnt,Ss,38i n ([id number]) - [id number] Implanted:Qty: 4 on 09/21/2016 by Alirio Esparza MD at [facility] IMPLANTS N/A: Chest [employer] - [id number] 04/29/2021 [id number] / / [id number] Patch,Cav,Pericar d,2x5cm ([id number]) ([employer]ore[employer]) - [id number] Implanted:Qty: 1 on 09/21/2016 by Alirio Esparza MD at [facility] IMPLANTS N/A: Heart DO NOT USE [employer] - [id number] 04/21/2018 [id number] / / [id number] Tavr-05/12/2023 Implanted:Qty: 1 on 05/12/2023 by Antelmo Sharma MD Other Heart [employer] - [place] [id number] / [id number] / Description:JAIME [employer] NCES ABBY 3 ULTRA [...] 05/12/2024 8:56 AM EDT Chronic idiopathic neutropenia from Last 3 Months Results * DXA Central Spine, Hip, and/or Whole Body (Generic) (05/18/2024 11:21 AM EDT) PT CLASS O RAD ADMITDTTM [id number] [facility] PT [facility] INFO [id number]^Dave ^Magdalena RAD EXAM DESC XDXAC^BD Bone Density DEXA Axial Skeleton^RIS [facility] WORKSTATION ID RADDRIMAGE [facility] Anatomical Region Laterality Modality C-spine, Hip [...] have questions please contact the health healthcare prof that requested your imaging first. ? Narrative [...] who have questions please contactthe health healthcare prof that requested your imaging first. Electronically signed by: Rocael Villatoro MD, [facility]([phone]), at 05/18/2024 11:25 AM Magdalena Acosta MD IMG DEXA ORDERABLES * MAMMO SCREENING CAD BILATERAL (CH) (05/18/2024 11:21 AM EDT) PT CLASS O RAD ADMITDTTM [id number] RAD PT [facility] INFO [id number]^Dave ^Magdalena RAD EXAM DESC MADDSCC^MG Mammo Digital Screening Bilateral.^RIS RAD WORKSTATION ID [...] have questions please contact the health healthcare prof that requested your imaging first. ? Electronically signed by: Rocael Villatoro MD, [facility] ([phone]), at 05/18/2024 3:[address] ??[address] Narrative 05/18/2024 3:05 PM EDT EXAMINATION: MG [...] who have questions please contactthe health healthcare prof that requested your imaging first. Electronically signed by: Rocael Villatoro MD, [facility]([phone]), at 05/18/2024 3:05 [place] [address] Madgalena Acosta MD PACS IMAGES * Reticulocyte Count [...] EDT 05/12/2024 8:56 AM EDT Tova Russell GAS WELDER APPRENTICE HEMATOLOGY ORDERABL ES [facility] [place] [address] * (ABNORMAL) CBC (with Diff) (05/12/2024 8:56 AM EDT) White Blood Cell 3.47(L) 4.00 - 9.50 x10(3)/mc L 05/12/2024 9:32 AM EDT [facility] Red Blood Cell 3.31(L) 4.00 - 5.21 x10(6)/mc L 05/12/2024 9:32 AM T [facility] Hemoglobin 11.1(L) 11.7 - 15.5 g/dL 05/12/2024 9:32 AM [facility] Hematocrit 33.2(L) 35.7 - 45.8 % 05/12/2024 9:32 AM [facility] Mean Cell Volume 100.3(H) 82.6 - 94.4 fL 05/12/2024 9:32 AM [facility] Mean Cell Hemoglobin 33.5(H) 27.1 - 32.0 pg 05/12/2024 9:32 AM [facility] Mean Cell Hemoglobin Concentration 33.4 31.7 - 35.0 g/dL 05/12/2024 9:32 AM [facility] Platelet 142(L) 145 - 357 x10(3)/mc L 05/12/2024 9:32 AM [facility] Mean Platelet Volume 8.7 7.6 - 12.9 fL 05/12/2024 9:32 AM [facility] RDW Standard Deviation 44.4 37.0 - 46.0 fL 05/12/2024 9:32 AM [facility] RDW coefficient of variation 12.0 11.5 - 14.1 % 05/12/2024 9:32 AM [facility] NRBC% auto 0.0 % 05/12/2024 9:32 AM [facility] NRBC Absolute <0.01 <0.01 x10(3)/mc L 05/12/2024 9:32 AM EDT [facility] Neutrophil % 69.7 % 05/12/2024 9:32 AM EDT [facility] Neutrophil Absolute (ANC) - Automated 2.42 1.70 - 6.10 x10(3)/mc L 05/12/2024 9:32 AM EDT [facility] Lymph % 16.7 % 05/12/2024 9:32 AM EDT [facility] Lymph Absolute 0.58(L) 0.90 - 3.20 x10(3)/mc L 05/12/2024 9:32 AM EDT [facility] Monocyte % 12.1 % 05/12/2024 9:32 AM [facility] Monocyte Absolute 0.42 0.30 - 0.90 x10(3)/mc L 05/12/2024 9[facility] Eos % 0.6 % [...] x10(3)/mc L 05/12/2024 9:32 AM [facility] Blood VENOUS BLOOD SPECIMEN / Unknown Venipuncture / Unknown 05/12/2024 8:56 AM EDT 05/12/2024 8:56 AM EDT Tova Russell GAS WELDER APPRENTICE HEMATOLOGY ORDERABL ES [facility] [place] [address] * (ABNORMAL) Comprehensive metabolic panel Non-fasting (05/12/2024 8:56 AM EDT) Glucose 86 65 - 199 mg/dL 05/12/2024 11:36 [facility] Comment:Glucose Concentratio n >=200 mg/dL plus symptoms is consistent with Diabetes Mellitus. Blood Urea Nitrogen 20(H) 8 - 18 mg/dL 05/12/2024 11:36 AM [facility] Creatinine 0.88 0.70 - 1.20 mg/dL 05/12/2024 11:36 AM [facility] Sodium 145 135 - 145 mMol/L 05/12/2024 11:36 AM [facility] Potassium 4.6 3.5 - 5.0 mMol/L 05/12/2024 11:36 AM [facility] Chloride 109(H) 98 - 107 mMol/L 05/12/2024 11:36 AM [facility] Carbon Dioxide 21(L) 22 - 31 mMol/L 05/12/2024 11:36 AM [facility] Anion Gap 15 5 - 15 mMol/L 05/12/2024 11:36 AM [facility] Comment:Not Calculated. Calcium 9.9 8.5 - 10.5 mg/dL 05/12/2024 11:36 AM [facility] Protein, Total 7.3 6.1 - 8.0 g/dL 05/12/2024 11:36 AM [facility] Albumin 4.5 3.2 - 5.2 g/dL 05/12/2024 11:36 AM [facility] Aspartate Aminotransferase 24 <=30 unit/L 05/12/2024 11:36 AM [facility] Alanine Aminotransferase 14 0 - [...] Foundation Fasting Status No 05/12/2024 11:36 AM T [facility] Blood VENOUS BLOOD SPECIMEN / Unknown Venipuncture / Unknown 05/12/2024 8:56 AM EDT 05/12/2024 8:56 AM EDT Tova Russell GAS WELDER APPRENTICE CHEMISTRY ORDERABLE S [facility] [place] [address] from Last 3 Months Advance Directives * [...] capacity to make decision: Yes Care Teams Hand Wrapper Operator Relationship Specialty Start Date End Date Magdalena Acosta MD [address] [place] [address] PCP - General Family Medicine 02/05/23
--- OUTSIDE RECORDS SUMMARY | 2024-06-01 14:12 | XMS_ITS | Encounter Summary ---
Author Organization [facility] [place] [address] Care Team Providers Care Graphic Specialist Name Role Phone Magdalena Acosta MD Primary Care Provider [phone] Encounter Details Date Type Department Care Team (Latest Contact Info) Description 05/31/2024 Travel Social History Tobacco Use Types Packs/Day [...] PM EST Hospital Encounter [place] [address] Markel Borjas MD [facility] [address] [place] [address] 06/05/2024 2:00 PM EST - 06/05/2024 3:00 PM EST Surgery [place]patient [place] [address] Markel Borjas MD [facility] [address] [place] [address] (OSC MSURG) BONE MARROW BIOPSY AND ASPIRATION; DIAGNOSTIC (WRVU 1.44) 06/23/2024 2:00 PM EST Office Visit Hematology and Oncology at [place] [phone] Markel Borjas MD [facility] [address] [place] [address] 11/02/2024 12:00 PM EDT Appointment Pulmonology at [address] 11/02/2024 1:00 PM EDT Office Visit Rheumatology at [address] Magdalena Peralta MD [facility] [place] [address] 03/01/2025 4:15 PM EDT Office Visit Dermatology at [address] [place] [address] Marek Bonilla MD [address] [facility], [place] [address] Scheduled Procedures Name Priority Associated Diagnoses Date/Ti me (OSC MSURG) BONE MARROW BIOPSY AND ASPIRATION; DIAGNOSTIC (WRVU 1.44) Anemia, in pt with longstanding neutropenia 06/05/2024 2:00 PM EST documented as of this encounter Visit Diagnoses Not on filedocumented in this encounter Care Teams Graphic Specialist Relationship Specialty Start Date End Date Magdalena Acosta MD [address] [place] [address] PCP - General Family Medicine 02/05/23 documented as of this encounter
--- OUTSIDE RECORDS SUMMARY | 2024-06-01 14:12 | XMS_ITS | Encounter Summary ---
Author Organization [facility] Address [address] [place] [address] Care Team Providers Care Writer Name Role Phone Ashley Chavez Primary Care Provider [phone] Encounter Details Date Type Department Care Team (Late st Contact Info) Description 06/23/2016 Results Only [facility] [phone] Matthwe Acevedo, DO [address] [facility] [place] [address] [place] [address] Social History Tobacco Use Types Packs/Day [...] ? PURNIMA THACKER ? Accession #: ? [id number] : ? 1955 (Age: 60) ??F ?Collect [...] ?? KARYOTYPE: 46,XX[25] End of Report [facility] 06/23/2016 06/24/2016 Matthew Acevedo DO PATHOLOGY ORDER JODIE [facility] [address] [place] [address] * FLOW CYTOMETRY (06/23/2016 0:00 EST) Pathology Report: FLOW CYTOMETRY REPORT Reports generated via electronic interface contain original data; however they are lacking the format of the original report. Caution should be taken when reading/interpreting unformatted reports. Name: ? PURNIMA THACKER ? Accession #: ? [id number] : ? 1955 (Age: 60) ??F ?Collect Date: ? 06/23/2016 00:00 Location: ? [facility] ? Receive Date: ? 06/24/2016 08:00 Provider: ?MATTHEW ACEVEDO DO Copy to: ?[employer] SERVICE MANAGER MARIO ALBERTO RAMOS MD ? FINAL IMMUNOPHENOTYPIC INTERPRETATION: ? Bone marrow, flow cytometric analysis: -No immunophenotypic evidence of a clonal cell population. ??See comment. ? COMMENT: The results of flow cytometry show no immunophenotypic evidence of involvement by a clonal lymphoproliferative or myeloproliferative disorder. ??Correlation of these findings with morphologic and clinical data is essential. ??Please refer to pathology report number [id number] for morphologic details. ? Document reviewed and [...] the Department of Pathology and Laboratory Medicine, [place], [place] ??It has not been cleared or [...] laboratory testing. End of Report ?? [facility] 06/23/2016 06/24/2016 8:0 0 EST Matthew Acevedo DO PATHOLOGY ORDER JODIE [facility] [address] [place] [address] * BONE MARROW/HEMPATH CONSULT (06/23/2016 0:00 EST) Pathology Report: BONE MARROW REPORT Reports generated via electronic interface contain original data; however they are lacking the format of the original report. Caution should be taken when reading/interpreting unformatted reports. Name: ? PURNIMA THACKER ? Accession #: ? [id number] : ? 1955 (Age: 60) ??F ?Collect Date: ? 06/23/2016 Location: ? [facility] ? Receive Date: ? 06/24/2016 Provider: ? MATTHEW ACEVEDO DO Copy to: ?[employer]ICE MANAGER MARIO ALBERTO RAMOS MD ? DIAGNOSIS: [...] #1: Aggregate biopsy length: 8 mm with upward bound director trabeculae of lamellar bone, cellular bone marrow, [...] SEE ABOVE DISCUSSION Lambda (polyclonal, Dako) ??(B1): [place] (polyclonal, Dako) ??(B1): Biopsy (decalcified) #2: Aggregate biopsy length: 8 mm with upward bound director trabeculae of lamellar bone, cellular bone marrow, [...] (M115, Leica) ??(B2): Lambda (polyclonal, Dako) ??(B2): [place] (polyclonal, Dako) ??(B2): NOTE: ??One or more [...] ? 1% Blasts ?1% Special Studies Cytogenetics ([id number]): Pending. Flow Cytometry ([id number]): No immunophenotypic evidence of a clonal cell population. ? End of Report [facility] 06/23/2016 06/24/2016 Matthew Acevedo DO PATHOLOGY ORDER JODIE [facility] [address] [place] [address] documented in this encounter Visit Diagnoses Not on filedocumented in this encounter Care Teams Writer Relationship Specialty Start Date End Date Ashley Chavez ARNP [address] [place] [address] PCP - General 07/11/10 documented as of this encounter
--- OUTSIDE RECORDS SUMMARY | 2024-06-01 14:13 | XMS_ITS | Encounter Summary ---
[place] [address] Care Team Providers Care Prospecting Driller Helper Name Role Phone Magdalena Acosta MD Primary Care Provider [phone] Reason for Visit * Reason Onset Date Comments Pre Procedure Call 03/01/2024 DAPT hold for EGD and colo? Encounter Details Date Type Department Care Team (Late st Contact Info) Description 03/01/2024 Telephone Cardiology at [address] [phone] Cynthia Monsalve RN Pre Procedure Call (DAPT [...] safe. Jay Message above left with Yenifer (management supervisor), who would be leaving this note in patient's chart for providers to schedule patient. No further questions or needs at this time. This nurse stated, note will be placed regarding this call in our chart for patient. Kezia Whitney RN, BSN Ambulatory Cardiology Clinic, [facility] [phone] * Telephone Encounter - Cynthia Monsalve RN [...] PM EST Hospital Encounter [place]patient [place] [phone] Markel Borjas MD [facility] [address] [place] [address] 06/05/2024 2:00 PM EST - 06/05/2024 3:00 PM EST Surgery [place] [address] Markel Borjas MD [facility] [place] [address] (OSC MSURG) BONE MARROW BIOPSY AND ASPIRATION; DIAGNOSTIC (WRVU 1.44) 06/23/2024 2:00 PM EST Office Visit Hematology [place] [address] Markel Borjas MD [facility] DR [place] [address] 11/02/2024 12:00 PM EDT Appointment Pulmonology at [place] [phone] 11/02/2024 1:00 PM EDT Office [place] [phone] Magdalena Peralta MD [facility] [place] [address] 03/01/2025 4:15 PM EDT Office Visit Dermatology at [place] [address] [place] [address] Marek Bonilla MD [address] [place] [address] Scheduled Procedures Name Priority Associated Diagnoses Date/Ti me (OSC MSURG) BONE MARROW BIOPSY AND ASPIRATION; DIAGNOSTIC (WRVU 1.44) Anemia, in pt with longstanding neutropenia 06/05/2024 2:00 PM EST documented as of this encounter Visit Diagnoses Not on filedocumented in this encounter Care Teams Prospecting Driller Helper Relationship Specialty Start Date End Date Magdalena Acosta MD [address] [place] [address] PCP - General Family Medicine 02/05/23 documented as of this encounter
--- OUTSIDE RECORDS SUMMARY | 2024-06-01 14:13 | XMS_ITS | Encounter Summary ---
Author Organization [facility] [place] [address] Care Team Providers Care Professor Of German Name Role Phone Magdalena Acosta MD Primary Care Provider [phone] Reason for Visit * Reason Comments Coronary Artery Disease Hypertension Aortic Stenosis Encounter Details Date Type Department Care Team (Latest Contact Info) Description 07/20/2023 4:40 PM EST TH Visit (TeleHealth) Cardiology at [address] [address] Jay Maza PA [facility] [place] [address] HFrEF (heart failure with reduced ejection fraction); [...] Maza PA - 07/20/2023 4:40 PM EST [facility] Heart [...] lieu of an in person office visit. Medical Accountant: Antelmo Sharma MD ([facility] Cards) Maria Luz eMjia MD ([facility] cards) Problem List: : [...] Mild coronary artery disease by [facility] 11/09/2022 I25.10 Heart failure with reduced [...] notable for coronary artery protection given low bdmoe-lx-xuvjqygp distance. There was no obstruction post Valve deployment, but the stent could not be removed safely, so it was deployed. 4.0 mm x 30mm in left main. She was loaded on brilinta aka ticagrelor. Immediately post valve deployment, chest compressions to circulate central epinephrine which was administered given her hypotension, low LVEF, and low cardiac reserve. Next, the patient was transferred to [facility] for pressor and inotropic support. Pressors weaned overnight. Cardiac indices by thermodilution remained greater than 3 with continued Milrinone 0.125 mcg/kg/min. EKG the next day with NSR with stable HI/QRS intervals. Hemoglobin 7.8 [...] arms and wrists. Successful right transfemoral TAVR Gzmyw-eq-Havem with a 23 mm Lai 3 THV. [...] leads Confirmed by MD Harshil, Haris Bell ([id number]) on 05/10/2023 8:11:46 AM Cardiac Cath 11/09/2022 [...] in chart review and direct patient contact. [id number] 0-5min [id number] 6-10min [id number] 11-15min 8833JZR8 16-20min x [id number] 21-30min 6355OWL3 31-40min [id number] 40+ min Jay Maza PA-C Interventional Cardiology [facility] Heart and Vascular [facility] Pager [phone] documented in this encounter Plan of Treatment Upcoming Encounters Date Type Department Care Team (Late st Contact Info) Description 06/05/2024 2:00 PM EST Hospital Encounter Outpatient [place] [phone] Markel Borjas MD [facility] DR [place] [address] 06/05/2024 2:00 PM EST - 06/05/2024 3:00 PM EST Surgery Outpatient [place] [phone] Markel Borjas MD [facility] [address] [place] [address] (OSC MSURG) BONE MARROW BIOPSY AND ASPIRATION; DIAGNOSTIC (WRVU 1.44) 06/23/2024 2:00 PM EST Office Visit Hematology [place] [address] Markel Borjas MD [facility] [address] [place] [address] 11/02/2024 12:00 PM EDT Appointment [place] [phone] 11/02/2024 1:00 PM EDT Office [place] [address] Magdalena Peralta MD [facility] [place] [address] 03/01/2025 4:15 PM EDT Office Visit Dermatology at [place] [address] [place] [address] Marek Bonilla MD [address], [place] [address] Scheduled Procedures Name Priority Associated Diagnoses Date/Ti me (OSC MSURG) BONE MARROW BIOPSY AND ASPIRATION; DIAGNOSTIC (WRVU 1.44) Anemia, in pt with longstanding neutropenia 06/05/2024 2:00 PM EST documented as of this encounter Visit Diagnoses Diagnosis HFrEF (heart failure with reduced ejection fraction) Hypertension, unspecified type Aortic valve stenosis, etiology of cardiac valve disease unspecified documented in this encounter Care Teams Professor Of German Relationship Specialty Start Date End Date Magdalena Acosta MD [address] [place] [address] PCP - General Family Medicine 02/05/23 documented as of this encounter
--- OUTSIDE RECORDS SUMMARY | 2024-06-01 14:13 | XMS_ITS | Encounter Summary ---
[place] [address] Care Team Providers Care Unloader Operator Name Role Phone Magdalena Acosta MD Primary Care Provider [phone] Reason for Visit * Reason Comments Annual Exam Encounter Details Date Type Department Care Team (Late st Contact Info) Description 02/22/2024 4:15 PM EDT Office Visit Dermatology at [address] [place] [address] [phone] Marek Bonilla MD [address] [facility] A DERMATOLOGY [place], [place] [address] Seborrheic keratosis; Rosacea; Nevus Social History Tobacco [...] cutaneous and ocular 3. Previously told by switch inspector that she had corneal tears from [...] PM EST Hospital Encounter [place] [address] Markel Borjas MD [facility] [address] HEMATOLOGY [place] [address] 06/05/2024 2:00 PM EST - 06/05/2024 3:00 PM EST Surgery [place] [address] Markel Borjas MD [facility] DR HEMATOLOGY [place] [address] (OSC MSURG) BONE MARROW BIOPSY AND ASPIRATION; DIAGNOSTIC (WRVU 1.44) 06/23/2024 2:00 PM EST Office Visit Hematology [place] [address] Markel Borjsa MD [facility] [address] [place] [address] 11/02/2024 12:00 PM EDT Appointment Pulmonology at [place] [address] 11/02/2024 1:00 PM EDT Office Visit Rheumatology at [place] [address] Magdalena Peralta MD [facility] [place] [address] 03/01/2025 4:15 PM EDT Office Visit Dermatology at [place] [address] [facility] [place] [address] Marek Bonilla MD [address] [address] [facility] [address], [place] [address] Scheduled Procedures Name Priority Associated Diagnoses Date/Ti me (OSC MSURG) BONE MARROW BIOPSY AND ASPIRATION; DIAGNOSTIC (WRVU 1.44) Anemia, in pt with longstanding neutropenia 06/05/2024 2:00 PM EST documented as of this encounter Visit Diagnoses Diagnosis Seborrheic keratosis Other seborrheic keratosis Rosacea Nevus Benign neoplasm of skin, site unspecified documented in this encounter Care Teams Unloader Operator Relationship Specialty Start Date End Date Magdalena Acosta MD [address] [place] [address] PCP - General Family Medicine 02/05/23 documented as of this encounter
--- OUTSIDE RECORDS SUMMARY | 2024-06-01 14:13 | XMS_ITS | Encounter Summary ---
Author Organization [facility] [place] [address] Care Team Providers Care Mat Making Machine Tender Name Role Phone Magdalena Acosta MD Primary Care Provider [phone] Encounter Details Date Type Department Care Team [...] PM EST Hospital Encounter Outpatient [place] [address] Markel Borjas MD [facility] DR [place] [address] 06/05/2024 2:00 PM EST - 06/05/2024 3:00 PM EST Surgery [place] [address] Markel Borjas MD [facility] DR [place] [address] (OSC MSURG) BONE MARROW BIOPSY AND ASPIRATION; DIAGNOSTIC (WRVU 1.44) 06/23/2024 2:00 PM EST Office Visit Hematology and Oncology at [place] [phone] Markel Borjas MD [facility] DR [place] [address] 11/02/2024 12:00 PM EDT Appointment Pulmonology at [address] 11/02/2024 1:00 PM EDT Office Visit Rheumatology at [address]1000 Magdalena Peralta MD [facility] [place] [address] 03/01/2025 4:15 PM EDT Office Visit Dermatology at [address] [place] [address] Marek Bonilla MD [address] [facility], [place] [address] Scheduled Procedures Name Priority Associated Diagnoses Date/Ti me (OSC MSURG) BONE MARROW BIOPSY AND ASPIRATION; DIAGNOSTIC (WRVU 1.44) Anemia, in pt with longstanding neutropenia 06/05/2024 2:00 PM EST documented as of this encounter Visit Diagnoses Not on filedocumented in this encounter Care Teams Mat Making Machine Tender Relationship Specialty Start Date End Date Magdalena Acosta MD [address] [place] [address] PCP - General Family Medicine 02/05/23 documented as of this encounter
--- OUTSIDE RECORDS SUMMARY | 2024-06-01 14:13 | XMS_ITS | Encounter Summary ---
Author Organization [facility] [place] [address] Care Team Providers Care Straightening Machine Operator Name Role Phone Magdalena Acosta MD Primary Care Provider [phone] Encounter Details Date Type Department Care Team [...] PM EST Hospital Encounter Outpatient [place] [address] Markel Borjas MD [facility] DR [place] [address] 06/05/2024 2:00 PM EST - 06/05/2024 3:00 PM EST Surgery [place]patient [place] [address] Markel Borjas MD [facility] DR [place] [address] (OSC MSURG) BONE MARROW BIOPSY AND ASPIRATION; DIAGNOSTIC (WRVU 1.44) 06/23/2024 2:00 PM EST Office Visit Hematology and Oncology at [place] [phone] Markel Borjas MD [facility] DR [place] [address] 11/02/2024 12:00 PM EDT Appointment Pulmonology at [address] 11/02/2024 1:00 PM EDT Office Visit Rheumatology at [address]1000 Magdalena Peralta MD [facility] [place] [address] 03/01/2025 4:15 PM EDT Office Visit Dermatology at [address] [place] [phone] Marek Bonilla MD [address] [facility] [place] [address] Scheduled Procedures Name Priority Associated Diagnoses Date/Ti me (OSC MSURG) BONE MARROW BIOPSY AND ASPIRATION; DIAGNOSTIC (WRVU 1.44) Anemia, in pt with longstanding neutropenia 06/05/2024 2:00 PM EST documented as of this encounter Visit Diagnoses Not on filedocumented in this encounter Care Teams Straightening Machine Operator Relationship Specialty Start Date End Date Magdalena Acosta MD [address] [place] [address] PCP - General Family Medicine 02/05/23 documented as of this encounter
--- OUTSIDE RECORDS SUMMARY | 2024-06-01 14:13 | XMS_ITS | Encounter Summary ---
Author Organization [facility] [place] [address] Care Team Providers Care Back Facer Name Role Phone Magdalena Acosta MD Primary Care Provider [phone] Encounter Details Date Type Department Care Team (Latest Contact Info) Description 07/08/2023 12:35 PM EST Laboratory Appointment Lab 3L [place] [address] S/P TAVR (transcatheter aortic valve [...] PM EST Hospital Encounter Outpatient [place] [phone] Markel Borjas MD [facility] DR [place]AT[place] [address] 06/05/2024 2:00 PM EST - 06/05/2024 3:00 PM EST Surgery Outpatient [place] [address] Markel Borjas MD [facility] DR HEMATOLOGY [place] [address] (OSC MSURG) BONE MARROW BIOPSY AND ASPIRATION; DIAGNOSTIC (WRVU 1.44) 06/23/2024 2:00 PM EST Office Visit Hematology and Oncology at [place] [phone] Markel Borjas MD [facility] DR HEMATOLOGY [place] [address] 11/02/2024 12:00 PM EDT Appointment Pulmonology at [address] 11/02/2024 1:00 PM EDT Office Visit Rheumatology at [place] [address] Magdalena Peralta MD [facility] [place] [address] 03/01/2025 4:15 PM EDT Office Visit Dermatology at [place] [address] [place] [phone] Marek Bonilla MD [address], [place] [address] Scheduled Procedures Name Priority Associated Diagnoses Date/Ti [...] 11:56 AM EST) Neutrophil % 73.2 % [facility] Neutrophil Absolute 3.40 1.70 - 6.10 x10(3)/mc L [facility] Lymph % 16.1 % [facility] Lymphocytes Abs 0.8(L) 0.9 - 3.2 x10(3)/mc L [facility] Monocyte % 9.7 % [facility] Monocyte Abs 0.4 0.3 - 0.9 x10(3)/mc L [facility] Eos % 0.4 % [facility] Eosinophils Abs 0.0 0.0 - 0.4 x10(3)/mc L [facility] Basophil % 0.4 % [facility] Baso Absolute 0.0 0.0 - 0.1 x10(3)/mc L [facility] Immature Gran % 0.20 % [facility] Comment: Immature granulocytes(IG's)percentage and absolute count will include metamyelocytes, myelocytes, and promyelocytes. Blood smears from CBCs yielding IG's will be scanned manually for concordance. If this scan disagrees with the automated IG or if promyelocytes are noted, a manual differential will be performed. Immature Gran Absolute 0.01 0.00 - 0.04 x10(3)/mc L [facility] Blood 07/08/2023 11:5 6 AM EST 07/08/2023 12:02 PM EST Narrative Resulting Agency Comment Spec In Lab Minh TOBAR HEMATOLOGY ORDERABLE S [facility] [place] [address] * (ABNORMAL) Hemogram (07/08/2023 11:56 AM EST) White Blood Cell 4.6 4.0 - 9.5 x10(3)/mc L [facility] Red Blood Cell 3.34(L) 4.00 - 5.21 x10(6)/mc L [facility] Hemoglobin 11.0(L) 11.7 - 15.5 g/dL [facility] Hematocrit 33.2(L) 35.7 - 45.8 % [facility] Mean Cell Volume 99.4(H) 82.6 - 94.4 fL [facility] Mean Cell Hemoglobin 32.9(H) 27.1 - 32.0 pg [facility] Mean Cell Hemoglobin Concentration 33.1 31.7 - 35.0 g/dL [facility] Platelet 166 145 - 357 x10(3)/mc L [facility] RDW Standard Deviation 47.1(H) 37.0 - 46.0 fL [facility] RDW coefficient of variation 13.0 11.5 - 14.1 % [facility] Mean Platelet Volume 9.0 7.6 - 12.9 fL [facility] NRBC% auto 0.0 % [facility] NRBC Absolute 0.000 0.000 - 0.000 x10(3)/ L [facility] Blood 07/08/2023 11:5 6 AM EST 07/08/2023 12:02 PM EST Narrative Resulting Agency Comment Spec In Lab Minh TOBAR HEMATOLOGY ORDERABLE S [facility] [place] [address] * (ABNORMAL) Comprehensive metabolic panel (non-fasting) (07/08/2023 11:56 AM EST) Glucose 93 65 - 199 mg/dL [facility] Comment:Diabetes: >=200 mg/d L plus symptoms Blood Urea Nitrogen 19(H) 8 - 18 mg/dL [facility] Creatinine 0.81 0.70 - 1.20 mg/dL [facility] Sodium 142 135 - 145 mmol/L [facility] Potassium 3.8 3.5 - 5.0 mmol/L [facility] Comment: Please note: ??Patients with WBC >100,000 may have falsely elevated Potassium levels. ??For accurate Potassium quantification in these patients send serum separator tube (gold top) for subsequent determinations. ??Contact the Clinical Chemistry Laboratory if there are any questions. Chloride 104 98 - 107 mmol/L [facility] Carbon Dioxide 26 22 - 31 mmol/L [facility] Anion Gap 12 5 - 15 mmol/L [facility] Calcium 10.2 8.5 - 10.5 mg/dL [facility] Protein, Total 7.4 6.1 - 8.0 g/dL [facility] Albumin 4.1 3.2 - 5.2 g/dL [facility] Aspartate Aminotransferase 24 0 - 30 unit/L [facility] Alanine Aminotransferase 12 0 - 30 unit/L [facility] Alkaline Phosphatase 93 35 - 105 unit/L [facility] Bilirubin, Total 0.3 0.2 - 1.3 mg/dL [facility] Est Glomerular Filtration Rate 80 >=60 mL/min/1. 73 m?? [facility] Comment: This patient's estimated GFR was [...] Esparza MD CHEMISTRY ORDERABLE S [facility] [place] [address] documented in this encounter Visit Diagnoses Diagnosis S/P TAVR (transcatheter aortic valve replacement) Severe aortic stenosis Aortic valve disorders documented in this encounter Care Teams Back Facer Relationship Specialty Start Date End Date Magdalena Acosta MD [address] [place] [address] PCP - General Family Medicine 02/05/23 documented as of this encounter
--- OUTSIDE RECORDS SUMMARY | 2024-06-01 14:13 | XMS_ITS | Encounter Summary ---
Author Organization [facility] [address] Care Team Providers Care Route Contractor Name Role Phone Magdalena Acosta MD Primary Care Provider [phone] Reason for Referral * Diagnostic Test (Routine) - New Request Specialty Diagnoses / Procedures Referred By Contac t Referred To Contact Cardiology Diagnoses S/P TAVR (transcatheter aortic valve replacement) Procedures Echocardiogram Transthoracic Antelmo Sharma MD [facility] [place] [address] [facility] [place] [address] Referral ID Status Reason Start Date Expiration Date Visits Requested Visits Authorized [id number] New Request Specialty Service Requested 12/16/2023 12/15/2024 1 1 Encounter Details Date Type Department Care Team (Late st Contact Info) Description 12/16/2023 Orders Only Cardiology at [address] [address] Antelmo Sharma MD [facility] [place] [address] S/P TAVR (transcatheter aortic valve [...] PM EST Hospital Encounter Outpatient Surgery Center [place] [phone] Markel Borjas MD [facility] [place] [address] 06/05/2024 2:00 PM EST - 06/05/2024 3:00 PM EST Surgery Outpatient Surgery [facility] [place] [phone] Markel Borjas MD [facility] [place] [address] (OSC MSURG) BONE MARROW BIOPSY AND ASPIRATION; DIAGNOSTIC (WRVU 1.44) 06/23/2024 2:00 PM EST Office Visit Hematology and Oncology at [place] [phone] Markel Borjas MD [facility] [place] [address] 11/02/2024 12:00 PM EDT Appointment Pulmonology at [place] [phone] 11/02/2024 1:00 PM EDT Office Visit Rheumatology at [address] Magdalena Peralta MD [facility] [place] [address] 03/01/2025 4:15 PM EDT Office Visit Dermatology at [place] [address] [place] [phone] Marek Bonilla MD [address] [place] [address] Scheduled Orders Name Type Priority Associated Diagnoses [...] replacement) documented in this encounter Care Teams Route Contractor Relationship Specialty Start Date End Date Magdalena Acosta MD [address] [place] [address] PCP - General Family Medicine 02/05/23 documented as of this encounter
--- OUTSIDE RECORDS SUMMARY | 2024-06-01 14:13 | XMS_ITS | Encounter Summary ---
[place] [address] Care Team Providers Care Ground Mixer Name Role Phone Magdalena Acosta MD Primary Care Provider [phone] Encounter Details Date Type Department Care Team (Latest Contact Info) Description 10/05/2023 10:52 AM EST - 10/05/2023 11:[address] [facility] Hospital [place] [address] Mixed connective tissue disease Discharge Disposition: Home [...] 75mg once daily. 90 tablet 3 07/20/2023 multivitamin (THERAGRAN) Tablet Take 1 tablet by [...] PM EST Hospital Encounter Outpatient Surgery Center [place] [phone] Markel Borjas MD [facility] DR [place] [address] 06/05/2024 2:00 PM EST - 06/05/2024 3:00 PM EST Surgery Outpatient [facility] [place] [phone] Markel Borjas MD [facility] DR [place] [address] (OSC MSURG) BONE MARROW BIOPSY AND ASPIRATION; DIAGNOSTIC (WRVU 1.44) 06/23/2024 2:00 PM EST Office Visit Hematology [place] [address] Markel Borjas MD [facility] DR [place] [address] 11/02/2024 12:00 PM EDT Appointment Pulmonology at [place] [address] 11/02/2024 1:00 PM EDT Office Visit Rheumatology at [place] [address] Magdalena Peralta MD [facility] [address] 03/01/2025 4:15 PM EDT Office Visit Dermatology at [address] [place] [phone] Marek Bonilla MD [address], [place] [address] Scheduled Procedures Name Priority Associated Diagnoses Date/Ti [...] PFT FEV1/FVC Pre-BD Z-Score 0 COMPAS PFT HOZ29-14 Actual Pre-BD 2.41 % COMPAS PFT YPD68-74 Predicted 1.8 % COMPAS PFT TTX71-92 Pre-BD % of Predicted 134 % COMPAS PFT RHL55-53 Pre-BD Z-Score 0.81 COMPAS PFT DLCO Hb [...] tissue documented in this encounter Care Teams Ground Mixer Relationship Specialty Start Date End Date Magdalena Acosta MD [address] [place] [address] PCP - General Family Medicine 02/05/23 documented as of this encounter
--- OUTSIDE RECORDS SUMMARY | 2024-06-01 14:13 | XMS_ITS | Encounter Summary ---
Author Organization [facility] [place] [address] Care Team Providers Care Rouge Sifter Name Role Phone Magdalena Acosta MD Primary Care Provider [phone] Encounter Details Date Type Department Care Team (Late st Contact Info) Description 05/27/2023 Refill Cardiology at [address] [phone] Vero Marrero, RN Social History Tobacco Use [...] May 27, 2023 Jay Maza PA to [place] 05/27/23 2:44 PM OK to change ticagrelor to Clopidogrel. Now, she should be taking ticagrelor 90mg BID. When she switches, she can take ticagrelor, then the next morning, stop ticagrelor, instead take clopidogrel 300mg once, then after that 75mg once daily. Jay Marrero electrical assembly technician Clinic at [facility] [address] * Telephone Encounter - Vero Marrero RN [...] possible. Vero Marrero RN Cardiology Clinic at [facility] [address] documented in this encounter Plan of Treatment Upcoming Encounters Date Type Department Care Team (Late st Contact Info) Description 06/05/2024 2:00 PM EST Hospital Encounter Outpatient [place] [phone] Markel Borjas MD [facility] [place] [address] 06/05/2024 2:00 PM EST - 06/05/2024 3:00 PM EST Surgery Outpatient [place] [phone] Markel Borjas MD [facility] HEMATOLOGY AND ONCOLOGY [place] [phone] (OSC MSURG) BONE MARROW BIOPSY AND ASPIRATION; DIAGNOSTIC (WRVU 1.44) 06/23/2024 2:00 PM EST Office Visit Hematology and Oncology at [place] [phone] Markel Borjas MD [facility] [address] [place] [address] 11/02/2024 12:00 PM EDT Appointment [place] [address] 11/02/2024 1:00 PM EDT Office Visit Rheumatology at [place] [phone] Magdalena Peralta MD [facility] [place] [address] 03/01/2025 4:15 PM EDT Office Visit Dermatology at [place] [address] [facility] [place] [address] Marek Bonilla MD [address] [facility] [facility], [place] [address] Scheduled Procedures Name Priority Associated Diagnoses Date/Ti me (OSC MSURG) BONE MARROW BIOPSY AND ASPIRATION; DIAGNOSTIC (WRVU 1.44) Anemia, in pt with longstanding neutropenia 06/05/2024 2:00 PM EST documented as of this encounter Visit Diagnoses Diagnosis Aortic valve stenosis, etiology of cardiac valve disease unspecified documented in this encounter Care Teams Rouge Sifter Relationship Specialty Start Date End Date Magdalena Acosta MD [address] [place] [address] PCP - General Family Medicine 02/05/23 documented as of this encounter
--- OUTSIDE RECORDS SUMMARY | 2024-06-01 14:13 | XMS_ITS | Encounter Summary ---
Author Organization [facility] Address [facility] [place] [address] Care Team Providers Care Buffet Manager Name Role Phone Magdalena Acosta MD Primary Care Provider [phone] Encounter Details Date Type Department Care Team (Late st Contact Info) Description 07/29/2023 11:00 AM EST Office [place] [address] Magdalena Peralta MD [facility] [place] [address] Mixed connective tissue disease Social History Tobacco [...] this encounter Patient Instructions * Patient Instructions* Madgalena Peralta MD - 07/29/2023 11:00 AM EST [...] speckled; VIC negative; Myositis panel with MANAGER BUDGET ab 149.1 (positive); Anti U1RNP IgG 119; [...] Viramontes. Magdalena Peralta MD Rheumatology Fellow Pager: [phone] * Kia Viramontes DO - 07/29/2023 11:00 AM EST ATTENDING ADDENDUM The patient's history was reviewed, and I interviewed and examined the patient with Dr. Peralta I agree with her summary, findings, and plan. documented in this encounter Plan of Treatment Upcoming Encounters Date Type Department Care Team (Late st Contact Info) Description 06/05/2024 2:00 PM EST Hospital Encounter [place]patient [place] [address] Markel Borjas MD [facility] [address] [place] [address] 06/05/2024 2:00 PM EST - 06/05/2024 3:00 PM EST Surgery [place] [address] Markel Borjas MD [facility] [address] [place] [address] (OSC MSURG) BONE MARROW BIOPSY AND ASPIRATION; DIAGNOSTIC (WRVU 1.44) 06/23/2024 2:00 PM EST Office Visit Hematology [place] [phone] Markel Borjas MD [facility] DR [place] [address] 11/02/2024 12:00 PM EDT Appointment [place] [address] 11/02/2024 1:00 PM EDT Office [place] [address] Magdalena Peralta MD [facility] [place] [address] 03/01/2025 4:15 PM EDT Office Visit Dermatology at [place] [address] [place] [address] Marek Bonilla MD [address], [address] [address] Scheduled Procedures Name Priority Associated Diagnoses Date/Ti [...] PFT FEV1/FVC Pre-BD Z-Score 0 COMPAS PFT HBV31-24 Actual Pre-BD 2.41 % COMPAS PFT WSH90-18 Predicted 1.8 % COMPAS PFT ZZW34-45 Pre-BD % of Predicted 134 % COMPAS PFT NWA70-96 Pre-BD Z-Score 0.81 COMPAS PFT DLCO Hb [...] tissue documented in this encounter Care Teams Buffet Manager Relationship Specialty Start Date End Date Magdalena Acosta MD [address] [place] [address] PCP - General Family Medicine 02/05/23 documented as of this encounter
--- OUTSIDE RECORDS SUMMARY | 2024-06-01 14:13 | XMS_ITS | Encounter Summary ---
Author Organization [facility] [place] [address] Care Team Providers Care Process Control Manager Name Role Phone Magdalena Acosta MD Primary Care Provider [phone] Reason for Referral * Diagnostic Test (Routine) - Closed Specialty Diagnoses / Procedures Referred By Contac t Referred To Contact Cardiology Diagnoses S/P TAVR (transcatheter aortic valve replacement) Procedures Echocardiogram Transthoracic Vinod Juárez PA [facility] [place] [address] [facility] [place] [address] Referral ID Status Reason Start Date Expiration Date V isits Requested Visits Authorized [id number] Closed Specialty Service Requested 05/22/2023 05/21/2024 1 1 Reason for Visit * Diagnostic Test (Routine) - Closed Specialty Diagnoses / Procedures Referred By Contac t Referred To Contact Cardiology Diagnoses S/P TAVR (transcatheter aortic valve replacement) Procedures Echocardiogram Transthoracic Vinod Juárez PA [facility] [place] [address] [facility] [place] [address] Referral ID Status Reason Start Date Expiration Date V isits Requested Visits Authorized [id number] Closed Specialty Service Requested 05/22/2023 05/21/2024 1 1 Encounter Details Date Type Department Care Team (Latest Contact Info) Description 07/08/2023 10:19 AM EST - 07/08/2023 11:59 PM EST Hospital Encounter Non-[place] [address] Alirio Esparza MD S/P TAVR (transcatheter aortic [...] Hospital Encounter [place] [address] Markel Borjas MD [facility] [place] [address] 06/05/2024 2:00 PM EST - 06/05/2024 3:00 PM EST Surgery [place] [address] Markel Borjas MD [facility] [place] [address] (OSC MSURG) BONE MARROW BIOPSY AND ASPIRATION; DIAGNOSTIC (WRVU 1.44) 06/23/2024 2:00 PM EST Office Visit [place]ematology [place] [phone] Markel Borjas MD [facility] [place] [address] 11/02/2024 12:00 PM EDT Appointment [place] [address] 11/02/2024 1:00 PM EDT Office [place] [address] Magdalena Peralta MD [facility] [place] [address] 03/01/2025 4:15 PM EDT Office Visit Dermatology at [place] [address] [place] [address] Marek Bonilla MD [address] [place] [address] Scheduled Procedures Name Priority Associated [...] EST Narrative 07/08/2023 12:26 PM EST 1 [place] [address] ? Echocardiogram Report Name: ONESIMO THACKER ?Study Date: 07/08/2023 10:31 AMBP: 118/60 mmHg ? Patient Location: : 1955 ? Height: 155 cm ? Account: [id number] Age: 67 yrs ? Weight: 74 kg Gender: Female ?BSA: 1.7 m2 Ordering Physician: ALIRIO ESPARZA Referring Physician: VINOD JUÁREZ Performed By: Felicia Norris RDCS Reason For Study: S/P TAVR Exam Location: [facility]. Interpretation Summary Left ventricular systolic function [...] no significant change (post-procedure). Procedure Limited - 79296. Doppler - 68419. Color Doppler - 44170. Satisfactory quality. This study is limited because [...] Note Lee Kincaid MD - 07/08/2023 1 [place] [address] Echocardiogram Report Name: ONESIMO THACKER Study Date: 0:31 AMBP: 118/60 mmHg Patient Location: : 1955 Height: 155 cm Account: [id number] Age: 67 yrs Weight: 74 kg Gender: Female BSA: 1.7 m2 Ordering Physician: ALIRIO ESPARZA Referring Physician: VINOD JUÁREZ Performed By: Felicia Norris RDCS Reason For Study: S/P TAVR Exam Location: [facility]. Interpretation Summary Left ventricular systolic function [...] is nosignificant change (post-procedure). Procedure Limited - 72891. Doppler - 21856. Color Doppler - 08095. Satisfactoryquality. This study is limited because of [...] replacement) documented in this encounter Care Teams Process Control Manager Relationship Specialty Start Date End Date Magdalena Acosta MD [address] [place] [address] PCP - General Family Medicine 02/05/23 documented as of this encounter
--- OUTSIDE RECORDS SUMMARY | 2024-06-01 14:13 | XMS_ITS | Encounter Summary ---
Author Organization [facility] [place] [address] Care Team Providers Care Dental Equipment Mechanic Name Role Phone Magdalena Acosta MD Primary Care Provider [phone] Reason for Visit * Reason Comments Aortic Stenosis Coronary Artery Disease Hypertension Encounter Details Date Type Department Care Team (Latest Contact Info) Description 11/16/2023 11:40 AM EDT TH Visit (TeleHealth) Cardiology at [address] [address] Jay Maza PA [facility] [place] [address] Aortic valve stenosis, etiology of cardiac valve disease unspecified; Coronary artery disease, unspecified vessel or lesion type, unspecified whether angina present, unspecified whether [place] or transplanted heart Social History Tobacco Use Types Packs/Day Years Used Date Smoking Tobacco: Never Smokeless Tobacco: Never Alcohol Use Standard Drinks/Week Comments No 0 (1 standard drink = 0.6 oz pur e alcohol) none [facility] Inpatient Questions Answer Date Recorded Does [...] from the original note were not included. [facility] – [...] person office visit. CARDIOLOGISTS: Antelmo Sharma MD ([facility] [place] Cards) Maria Luz Mejia MD ([facility] [place] Cards - [facility]) Problem List: [...] I35.0 Mild coronary artery disease by [facility] 11/09/2022 I25.10 Heart failure with [...] notable for coronary artery protection given low dgibw-ts-ibxvnsvk distance. There was no obstruction post Valve [...] leads Confirmed by MD Harshil, Haris Bell ([id number]) on 05/10/2023 8:11:46 AM Cardiac Cath 11/09/2022 [...] in one year. EKATERINA Thompson Time spent: [id number] 0-5min 4156FZA8 6-10min 0908YXO7 11-15min x 3116DWN0 16-20min 7499YAZ9 21-30min 6321EYG1 31-40min 8786TUR1 40+ min Jay Maza PA-C Interventional Cardiology [facility] [place] Pager [phone] documented in this encounter Plan of Treatment Upcoming Encounters Date Type Department Care Team (Late st Contact Info) Description 06/05/2024 2:00 PM EST Hospital Encounter Outpatient Surgery [facility] [place] [phone] Markel Borjas MD [facility] [address] [place] [address] 06/05/2024 2:00 PM EST - 06/05/2024 3:00 PM EST Surgery Outpatient Surgery [facility] [place] [phone] Markel Borjas MD [facility] DR [place] [address] (OSC MSURG) BONE MARROW BIOPSY AND ASPIRATION; DIAGNOSTIC (WRVU 1.44) 06/23/2024 2:00 PM EST Office Visit Hematology and Oncology at [place] [address] Markel Borjas MD [facility] [address] [place] [address] 11/02/2024 12:00 PM EDT Appointment Pulmonology at [place] [address] 11/02/2024 1:00 PM EDT Office Visit Rheumatology at [place] [address] Magdalena Peralta MD [facility] [place] [address] 03/01/2025 4:15 PM EDT Office Visit Dermatology at [place] [address] [place] [address] Marek Bonilla MD [address], [place] [address] Scheduled Procedures Name Priority Associated Diagnoses Date/Ti me (OSC MSURG) BONE MARROW BIOPSY AND ASPIRATION; DIAGNOSTIC (WRVU 1.44) Anemia, in pt with longstanding neutropenia 06/05/2024 2:00 PM EST documented as of this encounter Visit Diagnoses Diagnosis Aortic valve stenosis, etiology of cardiac valve disease unspecified Coronary artery disease, unspecified vessel or lesion type, unspecified whether angina present, unspecified whether [place] or transplanted heart documented in this encounter Care Teams Dental Equipment Mechanic Relationship Specialty Start Date End Date Magdalena Acosta MD [address] [place] [address] PCP - General Family Medicine 02/05/23 documented as of this encounter
--- OUTSIDE RECORDS SUMMARY | 2024-06-01 14:13 | XMS_ITS | Encounter Summary ---
Author Organization [facility] [place] [address] Care Team Providers Care Metal Cutter Name Role Phone Magdalena Acosta MD Primary Care Provider [phone] Encounter Details Date Type Department Care Team [...] PM EST Hospital Encounter [place] [address] Markel Borjas MD [facility] DR HEMATOLOGY [place] [address] 06/05/2024 2:00 PM EST - 06/05/2024 3:00 PM EST Surgery [place] [address] Markel Borjas MD [facility] DR HEMATOLOGY [place] [address] (OSC MSURG) BONE MARROW BIOPSY AND ASPIRATION; DIAGNOSTIC (WRVU 1.44) 06/23/2024 2:00 PM EST Office Visit Hematology and Oncology at [place] [phone] Markel Borjas MD [facility] DR HEMATOLOGY [place] [address] 11/02/2024 12:00 PM EDT Appointment Pulmonology at [address] 11/02/2024 1:00 PM EDT Office Visit Rheumatology at [address]1000 Magdalena Peralta MD [facility] [place] [address] 03/01/2025 4:15 PM EDT Office Visit Dermatology at [address] [place] [address] Marek Bonilla MD [address] [facility] [place] [address] Scheduled Procedures Name Priority Associated Diagnoses Date/Ti me (OSC MSURG) BONE MARROW BIOPSY AND ASPIRATION; DIAGNOSTIC (WRVU 1.44) Anemia, in pt with longstanding neutropenia 06/05/2024 2:00 PM EST documented as of this encounter Visit Diagnoses Not on filedocumented in this encounter Care Teams Metal Cutter Relationship Specialty Start Date End Date Magdalena Acosta MD [address] [place] [address] PCP - General Family Medicine 02/05/23 documented as of this encounter
--- OUTSIDE RECORDS SUMMARY | 2024-06-01 14:13 | XMS_ITS | Encounter Summary ---
Author Organization [facility] [place] [address] Care Team Providers Care Roving Department Supervisor Name Role Phone Magdalena Acosta MD Primary Care Provider [phone] Encounter Details Date Type Department Care Team (Late st Contact Info) Description 12/02/2023 11:15 AM EDT Office [place] [address] Magdalena Peralta MD [facility] DR RHEUMATOLOGY [place] [address] Mixed connective tissue disease Social History Tobacco [...] up initiated by Neurology: FRANCISCO 1:5120 speckled; IVC negative; Myositis panel with TREATING PLANT 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 She has an appointment with her Home Visitor scheduled in January. (Dr Bonilla in [place]) ROS (positives in bold): Gen: no fevers, [...] but I encouraged her to contact her Home Visitor to see if she could have her [...] Dr. Tanisha Peralta MD Rheumatology Fellow Pager: [phone] * Federico Yee MD - 12/02/2023 11:15 [...] PM EST Hospital Encounter Outpatient [place] [address] Markel Borjas MD [facility] DR HEMATOLOGY [place] [address] 06/05/2024 2:00 PM EST - 06/05/2024 3:00 PM EST Surgery Outpatient [place] [address] Markel Borjas MD [facility] DR HEMATOLOGY [place] [address] (OSC MSURG) BONE MARROW BIOPSY AND ASPIRATION; DIAGNOSTIC (WRVU 1.44) 06/23/2024 2:00 PM EST Office Visit [place]ology [place] [address] Markel Borjas MD [facility] DR HEMATOLOGY [place] [address] 11/02/2024 12:00 PM EDT [place] [address] 11/02/2024 1:00 PM EDT Office [place] [address] Magdalena Peralta MD [facility] DR RHEUMATOLOGY [place] [address] 03/01/2025 4:15 PM EDT Office Visit Dermatology at [place] [address] [place] [address] Marek Bonilla MD [address], [address] [place] [address] Scheduled Orders Name Type Priority Associated Diagnoses [...] tissue documented in this encounter Care Teams Roving Department Supervisor Relationship Specialty Start Date End Date Magdalena Acosta MD [address] [place] [address] PCP - General Family Medicine 02/05/23 documented as of this encounter
--- OUTSIDE RECORDS SUMMARY | 2024-06-01 14:13 | XMS_ITS | Encounter Summary ---
Author Organization [facility] [place] [place] [address] Care Team Providers Care Java Lead Engineer Name Role Phone Magdalena Acosta MD Primary Care Provider [phone] Encounter Details Date Type Department Care Team [...] EST Hospital Encounter Outpatient [place] [address] Markel Borjas MD [facility] DR [place] [address] 06/05/2024 2:00 PM EST - 06/05/2024 3:00 PM EST Surgery Outpatient [place] [address] Markel Borjas MD [facility] DR [place] [address] (OSC MSURG) BONE MARROW BIOPSY AND ASPIRATION; DIAGNOSTIC (WRVU 1.44) 06/23/2024 2:00 PM EST Office Visit Hematology and Oncology at [place] [phone] Markel Borjas MD [facility] DR [place] [address] 11/02/2024 12:00 PM EDT Appointment Pulmonology at [address]1000 11/02/2024 1:00 PM EDT Office Visit Rheumatology at [address]1000 Magdalena Peralta MD [facility] [place] [address] 03/01/2025 4:15 PM EDT Office Visit Dermatology at [address] [place] [address] Marek Bonilla MD [address] [facility], [place] [address] Scheduled Procedures Name Priority Associated Diagnoses Date/Ti me (OSC MSURG) BONE MARROW BIOPSY AND ASPIRATION; DIAGNOSTIC (WRVU 1.44) Anemia, in pt with longstanding neutropenia 06/05/2024 2:00 PM EST documented as of this encounter Visit Diagnoses Not on filedocumented in this encounter Care Teams Java Lead Engineer Relationship Specialty Start Date End Date Magdalena Acosta MD [address] [place] [address] PCP - General Family Medicine 02/05/23 documented as of this encounter
--- OUTSIDE RECORDS SUMMARY | 2024-06-01 14:13 | XMS_ITS | Encounter Summary ---
Author Organization [facility] [place] [address] Care Team Providers Care Medical Records Supervisor Name Role Phone Magdalena Acosta MD Primary Care Provider [phone] Encounter Details Date Type Department Care Team [...] PM EST Hospital Encounter Outpatient [place] [address] Markel Borjas MD [facility] DR HEMATOLOGY [place] [address] 06/05/2024 2:00 PM EST - 06/05/2024 3:00 PM EST Surgery Outpatient [place] [address] Markel Borjas MD [facility] DR HEMATOLOGY [place] [address] (OSC MSURG) BONE MARROW BIOPSY AND ASPIRATION; DIAGNOSTIC (WRVU 1.44) 06/23/2024 2:00 PM EST Office Visit Hematology and Oncology at [place] [phone] Markel Borjas MD [facility] DR HEMATOLOGY [place] [address] 11/02/2024 12:00 PM EDT Appointment Pulmonology at [address]1000 11/02/2024 1:00 PM EDT Office Visit Rheumatology at [address]1000 Magdalena Peralta MD [facility] [place] [address] 03/01/2025 4:15 PM EDT Office Visit Dermatology at [address] [place] [phone] Marek Bonilla MD [address] [facility] [place] [address] Scheduled Procedures Name Priority Associated Diagnoses Date/Ti me (OSC MSURG) BONE MARROW BIOPSY AND ASPIRATION; DIAGNOSTIC (WRVU 1.44) Anemia, in pt with longstanding neutropenia 06/05/2024 2:00 PM EST documented as of this encounter Visit Diagnoses Not on filedocumented in this encounter Care Teams Medical Records Supervisor Relationship Specialty Start Date End Date Magdalena Acosta MD [address] [place] [address] PCP - General Family Medicine 02/05/23 documented as of this encounter
--- OUTSIDE RECORDS SUMMARY | 2024-06-01 14:13 | XMS_ITS | Encounter Summary ---
Author Organization [facility] [place] [address] Care Team Providers Care Cordwood Cutter Name Role Phone Magdalena Acosta MD Primary Care Provider [phone] Encounter Details Date Type Department Care Team [...] PM EST Hospital Encounter [place]patient [place] [address] Markel Borjas MD [facility] DR [place] [address] 06/05/2024 2:00 PM EST - 06/05/2024 3:00 PM EST Surgery [place] [address] Markel Borjas MD [facility] DR [place] [address] (OSC MSURG) BONE MARROW BIOPSY AND ASPIRATION; DIAGNOSTIC (WRVU 1.44) 06/23/2024 2:00 PM EST Office Visit Hematology and Oncology at [place] [phone] Markel Borjas MD [facility] DR [place] [address] 11/02/2024 12:00 PM EDT Appointment Pulmonology at [address]1000 11/02/2024 1:00 PM EDT Office Visit Rheumatology at [address]1000 Magdalena Peralta MD [facility] [place] [address] 03/01/2025 4:15 PM EDT Office Visit Dermatology at [address] [place] [phone] Marek Bonilla MD [address] [facility] [place] [address] Scheduled Procedures Name Priority Associated Diagnoses Date/Ti me (OSC MSURG) BONE MARROW BIOPSY AND ASPIRATION; DIAGNOSTIC (WRVU 1.44) Anemia, in pt with longstanding neutropenia 06/05/2024 2:00 PM EST documented as of this encounter Visit Diagnoses Not on filedocumented in this encounter Care Teams Cordwood Cutter Relationship Specialty Start Date End Date Magdalena Acosta MD [address] [place] [address] PCP - General Family Medicine 02/05/23 documented as of this encounter
--- OUTSIDE RECORDS SUMMARY | 2024-06-01 14:13 | XMS_ITS | Encounter Summary ---
Author Organization [facility] [place] [address] Care Team Providers Care Decorator Inspector Name Role Phone Magdalena Acosta MD Primary Care Provider [phone] Encounter Details Date Type Department Care Team (Late st Contact Info) Description 07/08/2023 10:15 AM EST Office Visit Cardiology at [address] [phone] Severe aortic stenosis Social History Tobacco Use [...] PM EST Hospital Encounter Outpatient [place] [phone] Markel Borjas MD [facility] DR HEMATOLOGY [place] [address] 06/05/2024 2:00 PM EST - 06/05/2024 3:00 PM EST Surgery [place]patient [place] [address] Markel Borjas MD [facility] DR HEMATOLOGY [place] [address] (OSC MSURG) BONE MARROW BIOPSY AND ASPIRATION; DIAGNOSTIC (WRVU 1.44) 06/23/2024 2:00 PM EST Office Visit [place]ology [place] [address] Markel Borjas MD [facility] DR HEMATOLOGY [place] [address] 11/02/2024 12:00 PM EDT Appoint[place] [phone] 11/02/2024 1:00 PM EDT Office [place] [address] Magdalena Peralta MD [facility] [place] [address] 03/01/2025 4:15 PM EDT Office Visit Dermatology at [place] [address] [place] [address] Marek Bonilla MD [address], [place] [address] Scheduled Procedures Name Priority Associated Diagnoses Date/Ti [...] (Bezet) 449 ms MUSE SYSTEM Calculated P [place] 66 degrees MUSE SYSTEM Calculated R [place] 60 degrees MUSE SYSTEM Calculated T [place] 53 degrees MUSE SYSTEM INTERPRETATION Normal sinus rhythm Minimal voltage criteria for LVH, may be normal variant ( Sokolow-Orozco ) ST & T wave abnormality, consider lateral ischemia ??vs. repolarization abnormality from LVH Abnormal ECG When compared with ECG of 13-MAY-2023 09:22, Premature ventricular complexes are no longer Present Minimal criteria for Septal infarct are no longer Present Confirmed by Maxx Best ([id number]) on 07/09/2023 10:07:22 AM MUSE SYSTEM 07/08/2023 10:2 7 AM EST 07/09/2023 10:07 AM EST Brody Kaplan APRN ECG ORDERABLES MUSE SYSTEM documented in this encounter Visit Diagnoses Diagnosis Severe aortic stenosis Aortic valve disorders documented in this encounter Care Teams Decorator Inspector Relationship Specialty Start Date End Date Magdalena Acosta MD [address] [place] [address] PCP - General Family Medicine 02/05/23 documented as of this encounter
--- OUTSIDE RECORDS SUMMARY | 2024-06-01 14:14 | XMS_ITS | Encounter Summary ---
[place] [address] Care Team Providers Care Casino Investigator Name Role Phone Magdalena Acosta MD Primary Care Provider [phone] Reason for Visit * Auth/Cert (Routine) Specialty Diagnoses / Procedures Referred By Contac t Referred To Contact Diagnoses Symptomatic severe aortic stenosis with low ejection fraction NSTEMI, CHF Haris Chua MD [facility] [place] [address] [facility] Referral ID Status Reason Start Date Expiration Date Visits Re quested Visits Authorized [id number] 1 1 Encounter Details Date Type Department Care Team (Late st Contact Info) Description 05/12/2023 7:35 AM EDT Anesthesia Event [place] [address] Lynda Mcgowan MD [facility] [place] [address] Alie Park MD [facility] [place] [address] Anesthesia Record Procedure Summary Procedure Name Responsible [...] cephalic vein (lateral side of arm), left; czrm-qlm-pcnefa catheter system; Anatomical Landmarks; US Not Used; [...] RN LDA Cath/EP Sheath 05/12/23; 0733; 14 Palestinian (Fr); Right; Femoral; Arterial 05/12/23 0733 by Guerda Bender, RN 05/12/23 0830 by Guerda Bender RN LDA Cath/EP Sheath 05/12/23; 0734; 6 Palestinian (Fr); Right; Femoral; Venous 05/12/23 0734 by Guerda Bender RN 05/12/23 0817 by Guerda Bender RN LDA Cath/EP Sheath 05/12/23; 0734; 7 Palestinian (Fr); Left; Femoral; Arterial 05/12/23 0734 by Guerda Bender, RN 05/12/23 0837 by Guerda Bender RN LDA Cath/EP Sheath 05/12/23; 0734; 6 Palestinian (Fr); Left; Femoral; Venous 05/12/23 0734 by [...] Procedure Summary Date: 05/12/23 Room / Location: [facility] / [facility] CATH LABS Anesthesia Start: 734 [...] All Anesthesia Providers: Anesthesiologist: Lynda Mcgowan MD Psychologists: Nico Graham MD Vitals Value Taken Time [...] 05/08/2023 ??? Mild coronary artery disease by [facility] 11/09/2022 05/08/2023 ??? Heart failure with reduced [...] ANGIOGRAPHY; W [facility],POSSIBLE PCI (WRVU 5.6) performed by Nitesh Escobedo MD at [facility] CATH LABS ??? PRO AORTOPLAS FOR SUPRAVALV STEN N/A 09/21/2016 @AORTOPLASTY FOR SUPRAVALVULAR STENOSIS (WRVU 29.33) performed by Alirio Esparza MD at [facility] MAIN OR ??? PRO REPLACEMENT PROSTHETIC AORTIC VALVE OPEN W CARDIOPULMONARY BYPASS HOMOGRF/STENT N/A 09/21/2016 @REPLACE AORTIC VALVE, OPEN, W\CPB, W\PROSTHETIC VALVE (WRVU 41.32) performed by Alirio Esparza MD at [facility] MAIN OR Social History Tobacco [...] 3 general, with a(n) intravenous induction Add-on rwjaz-vx-iwptx TAVR. In cardiogenic shock. Has arterial line, [...] PM EST Hospital Encounter Outpatient Surgery Center [place] [phone] Markel Borjas MD [facility] DR [place] [address] 06/05/2024 2:00 PM EST - 06/05/2024 3:00 PM EST Surgery Outpatient Surgery Center [place] [phone] Markel Borjas MD [facility] DR [place] [address] (OSC MSURG) BONE MARROW BIOPSY AND ASPIRATION; DIAGNOSTIC (WRVU 1.44) 06/23/2024 2:00 PM EST Office Visit Hematology and Oncology at [place] [phone] Markel Borjas MD [facility] DR HEMATOLOGY [place] [address] 11/02/2024 12:00 PM EDT Appointment Pulmonology at [place] [phone] 11/02/2024 1:00 PM EDT Office Visit Rheumatology at [place] [phone] Magdalena Peralta MD [facility] [place] [address] 03/01/2025 4:15 PM EDT Office Visit Dermatology at [place] [address] [place] [address] Marek Bonilla MD [address], [address] [place] [address] Scheduled Procedures Name Priority Associated Diagnoses Date/Ti [...] mL/hr documented in this encounter Care Teams Casino Investigator Relationship Specialty Start Date End Date Magdalena Acosta MD [address] [place] [address] PCP - General Family Medicine 02/05/23 documented as of this encounter
--- OUTSIDE RECORDS SUMMARY | 2024-06-01 14:14 | XMS_ITS | Encounter Summary ---
Author Organization [facility] [place] [address] Care Team Providers Care Music Orchestrator Name Role Phone Magdalena Acosta MD Primary Care Provider [phone] Encounter Details Date Type Department Care Team [...] PM EST Hospital Encounter Outpatient [place] [address] Markel Borjas MD [facility] DR [place] [address] 06/05/2024 2:00 PM EST - 06/05/2024 3:00 PM EST Surgery Outpatient [place] [address] Markel Borjas MD [facility] DR [place] [address] (OSC MSURG) BONE MARROW BIOPSY AND ASPIRATION; DIAGNOSTIC (WRVU 1.44) 06/23/2024 2:00 PM EST Office Visit Hematology and Oncology at [place] [phone] Markel Borjas MD [facility] DR [place] [address] 11/02/2024 12:00 PM EDT Appointment Pulmonology at [address]1000 11/02/2024 1:00 PM EDT Office Visit Rheumatology at [address]1000 Magdalena Peralta MD [facility] [place] [address] 03/01/2025 4:15 PM EDT Office Visit Dermatology at [address] [place] [address] Marek Bonilla MD [address] [facility] [address] Scheduled Procedures Name Priority Associated Diagnoses Date/Ti me (OSC MSURG) BONE MARROW BIOPSY AND ASPIRATION; DIAGNOSTIC (WRVU 1.44) Anemia, in pt with longstanding neutropenia 06/05/2024 2:00 PM EST documented as of this encounter Visit Diagnoses Not on filedocumented in this encounter Care Teams Music Orchestrator Relationship Specialty Start Date End Date Magdalena Acosta MD [address] [place] [address] PCP - General Family Medicine 02/05/23 documented as of this encounter
--- OUTSIDE RECORDS SUMMARY | 2024-06-01 14:14 | XMS_ITS | Encounter Summary ---
Author Organization Formerly [facility], [facility] [place] [address] Care Team Providers Care 4 H Youth Development Specialist Name Role Phone Magdalena Acosta MD Primary Care Provider [phone] Reason for Referral * Diagnostic Test (Routine) - Closed Specialty Diagnoses / Procedures Referred By Contac t Referred To Contact Cardiology Diagnoses S/P TAVR (transcatheter aortic valve replacement) Procedures Echocardiogram Transthoracic Vinod Juárez PA [facility] [place] [address] [facility] [place] [address] Referral ID Status Reason Start Date Expiration Date V isits Requested Visits Authorized [id number] Closed Specialty Service Requested 05/22/2023 05/21/2024 1 1 * Home Health Care (Routine) - Closed Specialty Diagnoses / Procedures Referred By Contac t Referred To Contact Diagnoses S/P TAVR (transcatheter aortic valve replacement) Alirio Hudson MD [facility] CARDIOTHORACIC SURGERY [address] [facility] & [address] [place] [address] Referral ID Status Reason Start Date Expiration Date V isits Requested Visits Authorized [id number] Closed Consult, Test & Treat 05/22/2023 11/18/2023 999 999 * Consultation (Routine) - Closed Specialty Diagnoses / Procedures Referred By Crispin maxwell Referred To Contact Cardiology Diagnoses S/P TAVR (transcatheter aortic valve replacement) Alirio Hudson MD [facility] [place] [address] Cardiac Rehab, [address] [place] [address] Referral ID Status Reason Start Date Expiration Date V isits Requested Visits Authorized [id number] Closed Consult, Test & Treat 05/22/2023 11/18/2023 36 36 * Diagnostic Test (Routine) - Closed Specialty Diagnoses / Procedures Referred By Crispin maxwell Referred To Contact Cardiology Diagnoses Aortic valve stenosis, etiology of cardiac valve disease unspecified Procedures Echocardiogram Transthoracic Transesophageal Echocardiogram (YUSRA) Radha Hollins MD [facility] [place] [address] [facility] [place] [address] Referral ID Status Reason Start Date Expiration Date V isits Requested Visits Authorized [id number] Closed Specialty Service Requested 05/11/2023 05/10/2024 1 1 Reason for Visit * Auth/Cert (Routine) Specialty Diagnoses / Procedures Referred By Crispin maxwell Referred To Contact Diagnoses Symptomatic severe aortic stenosis with low ejection fraction NSTEMI, CHF Enrique Chua MD [facility] [place] [address] [facility] Referral ID Status Reason Start Date Expiration Date Visits Re quested Visits Authorized [id number] 1 1 Encounter Details Date Type Department Care Team (Latest Contact Info) Description 05/08/2023 9:14 AM EDT - 05/22/2023 10:46 AM EDT Hospital Encounter Heart and Vascular Unit Level 4 [place] [address] Enrique Chua MD [facility] [place] [address] Juan Luis Gonzalez MD [facility] [place] [address] Radha Hollins MD [facility] [place] [address] Alirio Hudson MD S/P TAVR (transcatheter aortic valve replacement) (Primary Dx); Aortic valve stenosis, etiology of cardiac valve disease unspecified; Symptomatic severe aortic stenosis with low ejection fraction; Heart failure with reduced ejection fraction due to heart valve disease; Mild coronary artery disease by [facility] 11/09/2022; Mixed connective tissue disease; [...] Patient Age: 67 y.o. Birthdate: 1955 Language: Sinhala Race: White Ethnicity: Not nor Admit Date: 05/08/2023 Discharge Date: 05/22/2023 Attending Physician: Alirio Hudson MD Follow-up Recommendations for Providers: Please continue routine management of cardiovascular risk factors including blood pressure, lipids,glucose, etc. Please note any medication changes. Patient to follow up with PCP, Magdalena Acosta MD, or Primary Recruiter Specialist, Maria Luz Mejia MD, in ~ 7-10 days. Patient to follow up with Manufacturing Supervisor 2Nd Shift, Dr. Antelmo Sharma, in 2 weeks with an EKG, Echo, CBC, and CMP. Patient to follow up with Nephrology, their office to arrange. Kycg-Bvxejn-bb interval: After initial 30 day follow-up appointment , all TAVR patients will follow-up again in one year with an echo. 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 Left coronary protection with left main MINNA. Hospital Course: #Severe prosthetic s/p valve in valve TF TAVR #Low coronary heights s/p left main stent for coronary protection #Type 2 NSTEMI, present on arrival, resolved #Acute decompensated HFrEF #Cardiogenic shock #EVANS / Cardiorenal syndrome Purnima Thacker was admitted to [facility] on 05/08/2023 via the Cardiology [...] she was brought to the clinical lab assistant the following morning where Drs. Alirio [...] if you have questions. Please call your Manufacturing Supervisor 2Nd Shift's office if you have any discharge or drainage from your procedural sites. Your Manufacturing Supervisor 2Nd Shift, Dr. Antelmo Sharma and/or the Art History Instructor may be reached at . Antibiotic prophylaxis: [...] of this card. Please refer to the [employer] [...] low fat, low cholesterol, [employer] Diet Driving: No restrictions. Shower/Bath: You may shower daily. No baths, soaking, or swimming for the first week. Wound care: Wash the sites daily with soap and rinse well, pat dry. Assess for any signs of infection such as increased redness, pain, warmth or drainage. Please call your monument setter's office if you have any discharge or drainage from your procedural sites. If there is a lot of swelling, apply mamta wraps during the day and remove at bedtime. Elevate your legs when you are sitting. Home oxygen therapy: N/A Follow up appointments: Please schedule a follow-up appointment with your PCP, Magdalena Acosta MD, or Primary Recruiter Specialist in ~ 7-10 days. You have a follow-up appointment with your Manufacturing Supervisor 2Nd Shift, Dr. Antelmo Sharma, in 2 weeks with an EKG, Echo, and labs prior to your appointment. You will need follow-up with Nephrology, their office will arrange. Piyq-Zvfsnn-zj interval: After initial 30 day follow-up appointment [...] [facility] Arrive at: Group Art Supervisor Area 5C [phone] 02/11/2024 2:00 PM Marek Bonilla MD Dermatology at [facility] Arrive at: [facility] [address] [phone] Future Orders Complete By Expires Type and Screen Future Surgery, [facility] SAME DAY PROGRAM ONLY) [UEA2334 Custom] 05/11/2023 Process Instructions: This test is intended ONLY for patients with upcoming surgery for testing prior to the day of surgery obtained through the same day program (4V or SDP). For ALL OTHER PATIENTS, order a Type and Screen (XLH006) This order includes the physician order for an ABO Recheck if requested by the Blood Bank. Scheduling Instructions: Comments: Questions: Date of surgery: CBC (with Diff) [[id number] Custom] 06/05/2023 12/05/2023 Process Instructions: INCLUDES: WBC, RBC, Hgb, Hct, Platelets, RBC Indices and Differential Scheduling Instructions: Comments: Questions: Comprehensive metabolic panel (non-fasting) [LAB17 Custom] 06/05/2023 08/20/2023 Process Instructions: INCLUDES: Calcium, T Protein, Albumin, AST, ALT, Alk Phos, T Bili, BUN, Creat, GFR, Glucose, Lytes. Scheduling Instructions: Comments: Questions: Echocardiogram Transthoracic [35144 CPT(R)] 06/05/2023 12/05/2023 Process Instructions: Scheduling Instructions: Questions: Where will study be performed?: [facility] Clinics Does the patient have Congenital Heart Disease?: Does patient require sedation?: GA rationale: EKG 12 Lead [09319 CPT(R)] 06/05/2023 12/05/2023 Process Instructions: Scheduling Instructions: Questions: Which location will this be performed?: [place] Is a rhythm strip needed?: No [facility] [EQ161 Custom] As directed Process Instructions: Scheduling Instructions: Questions: Device Needed: WALKER (E0143) Patient Height (cm): 154.9 cm (5' 0.98) Patient Weight: 75.4 kg (166 lb 3.2 oz) Diagnosis: Unsteady gait when walking Referral to Cardiac Rehab [AWM428 Custom] As directed Process Instructions: If no progress note charted, please enter Clinical details in comments. Scheduling Instructions: Questions: My question or request is: s/p TAVR. Cardiac rehab at [facility]. Referral to Home Health [REF34 Custom] As directed Process Instructions: If no progress note charted, please enter Clinical details in comments. Scheduling Instructions: Comments: DOCUMENTATION FOR VNA SERVICES PATIENT'S LOCATION: Purnima Thacker [address] [place] [phone] (home) Building Appraiser's Name: Self and brother Raymond In discussion with the attending physician, it is certified that this patient is under his/her careand that MD, or an DISC PAD GRINDING MACHINE FEEDER, NEUROLOGIST, or PA who is working directly with him/her, had a cdnf-ji-xund encounter that meets the physician qxgl-sh-fsoi encounter requirements with this patient on 05/22/2023. [...] for managing ADLs. HOME HEALTH CARE AGENCY: [facility]. [address] [address] PHONE: [phone] FAX: [phone] Start of care: Ideally 24-48 hours after [...] Acosta MD [address] / [facility] [address] All VNA agencies which cover the area of patient's residence have been reviewed, either verbally joao writing, and patient has chosen the home health care agency noted. Questions: Disciplines Requested: Physical Therapy Occupational Therapy Discharge References/Attachments None Arrangements for VNA/home care: As above. (delete if no VNA) Signed: EKATERINA NAVARRETE [facility] Section of Cardiac Surgery Date: 05/22/2023 CC: Magdalena Acosta MD Robin Glen-IndiantownMario Alberto MD [address] [place] [address] documented in this encounter Discharge Instructions * Patient Instructions* Vinod Juárez PA - 05/22/2023 9:32 AM EDT TAVR Discharge Instructions: Call your doctor if: You have a fever of greater than 101 degrees, shaking chills, if you develop redness or drainage from your procedure sites, or if you have questions. Please call your Manufacturing Supervisor 2Nd Shift's office if you have any discharge or drainage from your procedural sites. Your Manufacturing Supervisor 2Nd Shift, Dr. Antelmo Sharma and/or the Art History Instructor may be reached at . Antibiotic prophylaxis: [...] of this card. Please refer to the [employer] [...] low fat, low cholesterol, [employer] Diet Driving: No restrictions. Shower/Bath: You may shower daily. No baths, soaking, or swimming for the first week. Wound care: Wash the sites daily with soap and rinse well, pat dry. Assess for any signs of infection such as increased redness, pain, warmth or drainage. Please call your monument setter's office if you have any discharge or drainage from your procedural sites. If there is a lot of swelling, apply mamta wraps during the day and remove at bedtime. Elevate your legs when you are sitting. Home oxygen therapy: N/A Follow up appointments: Please schedule a follow-up appointment with your PCP, Magdalena Acosta MD, or Primary Recruiter Specialist in ~ 7-10 days. You have a follow-up appointment with your Manufacturing Supervisor 2Nd Shift, Dr. Antelmo Sharma, in 2 weeks with an EKG, Echo, and labs prior to your appointment. You will need follow-up with Nephrology, their office will arrange. Cfvf-Jedavr-cr interval: After initial 30 day follow-up appointment [...] ins ( tef) Haven Ba, PT Pager: [phone] Physical Therapy Inpatient Rehabilitation Department * Nico [...] 0600 and on the weekends please page [phone]. * Jory Paniagua - 05/20/2023 3:52 PM [...] vomiting Last Bowel Movement: 05/20/23 Jory Paniagua Posting Specialist * Tong Mike, OT - 05/20/2023 [...] S&I N/A 11/09/2022 CORONARY ANGIOGRAPHY; W [facility],POSSIBLE PCI (WRVU 5.6) performed by [...] W\PROSTHETIC VALVE (WRVU 41.32) performed by Alirio Hudosn MD at [facility] MAIN OR Social History: Patient lives alone. Home Setup: Pt lives on one level with tub shower and three steps to enter. DME: none used BLOCK CAPTAIN Baseline ADL/Mobility: Independent with ADLs and IADLs. [...] Discharge planning. Total Minutes, Occupational Therapy: 28 (6302-9297) OT Evaluation Code Rationale: Diagnosis & Pertinent Co-Morbidities affecting Plan of Care: see PMHx Occupational Profile & Client History: Brief Expanded Extensive x Assessment of Occupational Performance: 1-3 performance deficits 3-5 performance deficits x 5 + performance deficits Clinical Decision Making: Low Moderate High x Clinical decision making of moderate complexity using standardized patient assessment instrument and measurable assessment of functional outcome. Pager: [phone] TONG MIKE OT 05/20/2023 Occupational Therapy Rehabilitation [...] 0600 and on the weekends please page [phone]. * Rylie Rodriguez MD - 05/19/2023 3:59 [...] and plan. Cynthia Blackburn MD Nephrology Pager: [phone] * Diana Espino - 05/19/2023 1:49 PM EDT Retail Sales Associate Bilingual Encounter Note Patient Name: Purnima Thacker : [id number] MR#: [id number] Admit Date: 05/08/2023 9:14 AM Hospital Day [...] as stated. Total Minutes, Physical Therapy: 38 ([phone]) Henrik Navarrete, BLOCK CAPTAIN Pager: [phone] Physical Therapy Inpatient Rehabilitation Department * Nico [...] 0600 and on the weekends please page [phone]. * Laure Ricks PA - 05/19/2023 7:56 [...] Ricks PA-C Interventional Radiology IR Team Pager [phone] * Consuelo Espinoza RN - 05/18/2023 4:13 PM EDT ANGIO NURSING DATABASE Name: Purnima Thacker Date of : 1955 AGE: 67 y.o. Address: [address] [place] [phone] (home) Mobile: No relevant phone numbers on [...] I35.0 Mild coronary artery disease by [facility] 11/09/2022 I25.10 Heart failure with [...] and plan. Cynthia Blackburn MD Nephrology Pager: [phone] * Magdalena Puri, DANDY OPERATOR - 05/18/2023 10:51 AM EDT Images from the original note were not included. [facility] [place] [address] STRUCTURAL HEART DISEASE CONSULTATION NOTE PRIMARY CARE [...] stenosis. She is now status post TAVR Tbiiy-ox-Etgqp with a 23 mm Lai 3 THV 05/12/[address] Sharma. Preliminary findings: Successful right transfemoral TAVR Sdyqa-gk-Auzga with a 23 mm Ali 3 THV. [...] fraction Mild coronary artery disease by [facility] 11/09/2022 Heart failure with reduced [...] 10 mg 10 mg Rectal Daily PRN Manns ChoiceMara ernandez APRN melatonin tablet 6 mg 6 [...] stenosis. She is now status post TAVR Jyybu-as-Mjnxu with a 23 mm Lai 3 THV 05/12/[address] Sharma. Janet TAVR case notable for coronary LAD protective MINNA. Status post TAVR, the patient was transferred to [facility] for pressor and inotropic support. [...] Magdalena Puri APRN Structural Heart Team Pager [phone] Team Office Please see addendum by Dr. Sharma for final plan and recommendations Associated attestation - Antelmo Sharma MD - 05/19/2023 10:52 PM EDT I have reviewed Magdalena Puri APRN's above history and I agree with the details as written. The assessment and plan were formulated in discussion with me and I agree with them as documented. Antelmo Sharma MD Pager [phone] * Nico Palacios PA - 05/18/2023 8:13 [...] 0600 and on the weekends please page [phone]. * Loli Hernandez, PT - 05/17/2023 5:27 [...] plan as stated. Time IN / OUT: 7539-8012 Total Minutes, Physical Therapy: 54 Billing Code: te-sx2, te-f, gait LOLI HERNANDEZ PT Pager: [phone] Physical Therapy Inpatient Rehabilitation Department * Cynthia [...] Well controlled. Cynthia Blackburn MD Nephrology Pager: [phone] * Maggie Mara, DANDY OPERATOR - 05/17/2023 8:26 AM EDT Cardiac [...] 0600 and on the weekends please page [phone]. * Guerda Del Valle - 05/16/2023 10:44 AM EDT Nutrition Services Note - Low Nutrition Acuity Purnima Thacker is a 67 y.o. female Reason for intervention: hospital day 9 Nutrition Plan: Continue diet order Encourage good PO Lasix and Zofran noted Added special serve: open containers Monitor weight Patient scheduled for a hospital day 9 nutrition evaluation. Marketing Communications Assistant met with pt at bedside. Pt reports that her appetite and PO has much improved since admission. Denies nausea/vomiting or trouble chewing/swallowing. Marketing Communications Assistant provided snack list but pt not interested in adding snacks at this time. Her only concern was that she is worried that she will eat too much which will cause too much pressure in her stomach. Marketing Communications Assistant assured pt and suggested eating smaller but [...] Last Bowel Movement: 05/10/23 Guerda Del Valle Posting Specialist * Vinod Juárez PA - 05/16/2023 [...] 0600 and on the weekends please page [phone]. * Michael Jeffers MD - 05/16/2023 8:11 AM EDT Images from the original note were not included. Hypertension-Nephrology Inpatient Follow-up Purnima Thacker [id number] 1955 ID: 67 y.o. old female seen [...] IRONSAT 12 (L) 05/16/2023 SFOLATE >20.0 07/03/2022 [id number] 07/03/2022 Lab Results Component Value Date [...] Dr. Ayoub. Please contact me at phone: [phone] or pager: [phone] with any questions. Michael Jeffers MD Nephrology [...] -Nephrology consulted, labs and renal US ordered -Holloway removed, ambulated around the unit -bilateral pleural [...] 0600 and on the weekends please page [phone]. * Hortencia Cody MD - 05/15/2023 2:07 [...] not included. Hypertension-Nephrology Inpatient Follow-up Purnima Thacker [id number] 1955 ID: 67 y.o. old female seen [...] HGB 7.8 (L) 05/13/2023 SFOLATE >20.0 07/03/2022 [id number] 07/03/2022 Lab Results Component Value Date [...] Dr. Ayoub. Please contact me at phone: [phone] or pager: [phone] with any questions. Michael Jeffers MD Nephrology [...] outlined inthis evaluation. HAVEN BA, PT Pager: [phone] Physical Therapy Inpatient Rehabilitation Department Time IN / OUT: 2701-1257 Total time: Total Minutes, Physical Therapy: 30 [...] on the weekends please page [phone]. * Antelmo Sharma MD - 05/14/2023 7:56 AM EDT Images from the original note were not included. [facility] [place] [id number] STRUCTURAL HEART DISEASE CONSULTATION NOTE PRIMARY CARE [...] stenosis. She is now status post TAVR Oydwq-se-Qimoq with a 23 mm Lai 3 THV 05/12/[address] Sharma. Preliminary findings: Successful right transfemoral TAVR Ayiyb-ui-Adzcn with a 23 mm Lai 3 THV. [...] fraction Mild coronary artery disease by [facility] 11/09/2022 Heart failure with reduced [...] stenosis. She is now status post TAVR Jfibv-dv-Tkuqx with a 23 mm Lai 3 THV 05/12/[address] Sharma. Janet TAVR case notable for coronary LAD protective MINNA. Status post TAVR, the patient was transferred to [facility] for pressor and inotropic support. [...] Brody Kaplan APRN Structural Heart Team Pager [phone] Team Office Please see addendum by Dr. [...] exposure. Nephrology consultationtoday. Antelmo Sharma MD Pager [phone] * Antelmo Cardenas RN - 05/14/2023 5:18 AM EDT Pt AOx4, complaining of mild/moderate generalized pain (states her Meloxicam is effective at home) currently refusing prn oxycodone. NAEON, hemodynamically stable on Milrinone, Maps >65, ST in cgp204's down to NSR with frequent multifocal PVC's. [...] from the original note were not included. [facility] [place] [address] STRUCTURAL HEART DISEASE PROGRESS NOTE PRIMARY CARE [...] stenosis. She is now status post TAVR Nteqb-qq-Htiau with a 23 mm Lai 3 THV 05/12/[address] Sharma. Preliminary findings: Successful right transfemoral TAVR Vehxj-fu-Kecut with a 23 mm Lai 3 THV. [...] fraction Mild coronary artery disease by [facility] 11/09/2022 Heart failure with reduced [...] stenosis. She is now status post TAVR Fsddo-aq-Pchgi with a 23 mm Lai 3 THV [...] Brody Kaplan APRN Structural Heart Team Pager [phone] Team Office Please see addendum by Dr. [...] DAPT moving forward. Antelmo Sharma MD Pager [phone] * Bonita Miguel PA - 05/13/2023 8:30 AM EDT Cardiac Surgery Progress Note Purnima Thacker is a 67 y.o. 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 PMH of s/p tissue AVR (2017), mixed connective tissue disease HTN, HLD, NICOLAS, diverticulosis, rosacea, essential tremor, and depression. 24h Events: From clinical lab assistant for above procedure Extubated at ~1600 [...] soft b/l, no evidence of hematoma. Tubes/Lines/Drains: Holloway, RIJ, A-line, Art, PIV Assessment/Plan: 67 y.o. [...] 0600 and on the weekends please page [phone]. * Onelia Schwartz MD - 05/12/2023 1:44 [...] fraction Mild coronary artery disease by [facility] 11/09/2022 Heart failure with reduced [...] FiO2 weaned to 40%. 1105: ABG 7.34/42/73/22 8189-7250: SBT performed and passed on these settings [...] PCP: Magdalena Acosta MD PCP phone number: [phone] Date of Admission: 05/08/2023 ( Hospital Day [...] 1447 PHART -- 7.34* 7.34* -- -- ZQI8OMM -- 30* 30* -- -- PO2ART -- 72* 81* -- -- EEL6OXL -- 16.0* 15.7* -- -- LACTATEVEN 2.4* 2.7* 2.7* 4.8* 2.9* VBG (Venous Blood Gas) Recent Labs 05/12/23 0700 05/12/23 0318 05/12/2310505/11/23193905/11/23 1447 LACTATEVEN 2.4* 2.7* 2.7* 4.8* 2.9* Mixed Venous Sat Recent Labs 05/12/23 0508 05/12/23 0321 05/12/23 0114 05/12/23 0030 [id number] 30.7 32.7 37.3 25.1 Objective: Vitals Last [...] who have questions please contact the health careers adviser that requested your imaging first. Cardiac for [...] who have questions please contact the health careers adviser that requested your imaging first. Angiogram Abdomen [...] who have questions please contact the health careers adviser that requested your imaging first. Chest One [...] who have questions please contact the health careers adviser that requested your imaging first. Chest One [...] who have questions please contact the health careers adviser that requested your imaging first. Assessment & [...] and inotrope. She is planned for a soaps-vg-vxnsy TAVR this morning, which should hopefully improve [...] MD, FACP, FACC Section of Cardiovascular Medicine [facility] Diabetes Education Coordinatorpress washer [facility] of [facility] at [facility] * Noreen Deutsch RN - 05/12/2023 [...] fraction Mild coronary artery disease by [facility] 11/09/2022 Heart failure with reduced [...] 05/11/2023 4:11 PM EDT Reported off to TRASH MAN and pt transferred over in the bed for higher level of care. * Antelmo Sharma MD - 05/11/2023 9:45 AM EDT Images from the original note were not included. [facility] [place] [id number] STRUCTURAL HEART DISEASE CONSULTATION NOTE PRIMARY CARE [...] stenosis. She is a patient of Dr. uBi, who had been referred for possible TAVR dapwb-xr-cjntl evaluation. Her primary symptoms are of dyspnea [...] [facility]. 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 She states that, [...] fraction Mild coronary artery disease by [facility] 11/09/2022 Heart failure with reduced [...] Units 0-8,000 Units Intravenous BOLUS HEPARIN PP Kluadia Reid MD aspirin EC tablet 81 mg [...] lab ([facility]) Result Value Ref Range Lactate WB 3.1 (H) 0.5 - 2.2 mmol/L Heparin (unfractionated) Level Result Value Ref Range Heparin UFH Level 0.46 IU/mL Lactate, whole blood, send to lab ([facility]) Result Value [...] leads Confirmed by MD Harshil, Enrique Bell ([id number]) on 05/10/2023 8:11:46 AM Cardiac Cath 11/09/2022 [...] alert Dr. Hudson of her inpatient status, [place] primary cardiac surgeon. Based on recent clinic [...] 05/12/2023. Brody KaplanANURAG Structural Heart Disease Pager [phone] Please see addendum by Dr. Sharma for [...] signed and dated. Antelmo Sharma MD Pager [phone] * Harini Lance MD - 05/11/2023 6:06 AM EDT Images from the original note were not included. Cardiology Progress Note Patient info: Name: Purnima Thacker : 1955 PCP: Magdalena Acosta MD PCP phone number: [phone] Date of Admission: 05/08/2023 ( Hospital Day [...] who have questions please contact the health careers adviser that requested your imaging first. : 05/08 [...] 09/2016) Mild coronary artery disease by [facility] 11/09/2022 Hyperlipidemia, unspecified NICOLAS (obstructive [...] PCP: Magdalena Acosta MD PCP phone number: [phone] Date of Admission: 05/08/2023 ( Hospital Day [...] 09/2016) Mild coronary artery disease by [facility] 11/09/2022 Hyperlipidemia, unspecified NICOLAS (obstructive [...] PCP: Magdalena Acosta MD PCP phone number: [phone] Date of Admission: 05/08/2023 ( Hospital Day [...] Gas) No results found for: PHART, PO2ART, YOA0KKA, ZSJ1WZG Microbiology: Microbiology Results (Last 30 days) No [...] 09/2016) Mild coronary artery disease by [facility] 11/09/2022 Hyperlipidemia, unspecified NICOLAS (obstructive [...] I35.0 Mild coronary artery disease by [facility] 11/09/2022 I25.10 Heart failure with reduced ejection fraction due to heart valve disease I50.20, I38 Cardiogenic shock R57.0 S/P TAVR (transcatheter aortic valve replacement) Z95.2 Past Medical History: Diagnosis Date Anemia Past Surgical History: Procedure Laterality Date PRG CATH PLMT LEFT HEART CATH & ARTS W/INJ & ANGIO IMG S&I N/A 11/09/2022 CORONARY ANGIOGRAPHY; W [facility],POSSIBLE PCI (WRVU 5.6) performed by [...] I35.0 Mild coronary artery disease by [facility] 11/09/2022 I25.10 Heart failure with reduced ejection fraction due to heart valve disease I50.20, I38 Cardiogenic shock R57.0 S/P TAVR (transcatheter aortic valve replacement) Z95.2 Past Medical History: Diagnosis Date Anemia Past Surgical History: Procedure Laterality Date PRG CATH PLMD LEFT HEART CATH & ARTS W/INJ & ANGIO IMG S&I N/A 11/09/2022 CORONARY ANGIOGRAPHY; W [facility],POSSIBLE PCI (WRVU 5.6) performed by [...] days, which prompted her to present to [employer]. She also endorses some intermittent retrosternal chest pain with exertion.She endorses some dizziness with exertion, but has not gotten faint or passed out. At [employer] she was noted to be afebrile, blood pressure 105/64, HR 120s, satting 95% on 2L NC. Labs from [employer] are below, of note she had elevated [...] 89/59, which prompted the transfer to us. [employer] labs: CBC - Hgb 10.5 CMP - Cr 1.1 BNP 73542 HsTrop 1358 Lactate 1.6 D-dimer 1183 Interval History Patient was admitted to [facility] due to concern on low [...] Klaudia Reid MD Internal Medicine PGY-1 Pager [phone], M1-S1 Service Associated attestation - Juan Luis Gonzalez MD - 05/08/2023 10:00 PM EDT Cardiology Attending Addendum Active Hospital Problems Diagnosis Symptomatic severe aortic stenosis with low ejection fraction Heart failure with reduced ejection fraction due to heart valve disease Mild coronary artery disease by [facility] 11/09/2022 Hyperlipidemia, unspecified History of aortic valve replacement Resolved Hospital Problems No resolved problems to display. I have interviewed and examined the patient, reviewed the available data, and have discussed my findings, assessment and plan with the patient and the team on admission to S2 service (from [facility] service) today. I agree with [...] PCP: Magdalena Acosta MD PCP phone number: [phone] Date of Admission: 05/08/2023 ( Hospital Day 0 days ) Attending:Enrique Chua MD ID: Purnima Thacker is a 67 y.o. female w/ PMH of s/p bioprosthetic AVR in 2016 with recent concern for severe restenosis, HTN, HLD, mixed connective tissue disease, who presents in transfer from [employer] with worsening BONILLA and weight gain concerning [...] four days, which promptedher to present to [employer]. She also endorses some intermittent retrosternal chest pain with exertion. She endorses some dizziness with exertion, but has not gotten faint or passed out. At [employer] she was noted to be afebrile, blood pressure 105/64, HR 120s, satting 95% on 2L NC. Labs from [employer] are below, of note she had elevated [...] 89/59, which prompted the transfer to us. [employer] labs: CBC - Hgb 10.5 CMP - Cr 1.1 BNP 16494 HsTrop 1358 Lactate 1.6 D-dimer 1183 Vasoactive [...] tissue disease, who presents in [facility] [employer] [facility] worsening BONILLA and weight gain concerning for [...] Lincoln Sal MD Internal Medicine, PGY-1 Cardiology [facility] #[id number] 05/08/23 12:06 PM Cardiology Staff Addendum [...] to the planned procedure. Hand Hygiene: The computer game designer did perform hand hygiene prior to arterial [...] Successful arterial line placement. Crispin Timmons MD Art History Instructor Associated attestation - Onelia Schwartz MD - [...] (flow was non-pulsatile) and appearance of blood. Holloway-Marily catheter was placed and locked at 55 [...] information for follow-up [facility], [place] [address] [place] [address] Cardiac Rehab, [facility] [address] [place] [address] [place] [address] [facility], [place] [address] [place] [address] Transportation: family or friend will provide *Brother [...] Type: *No Product type* / Secondary Insurance: [employer] [place] Prescription Coverage: Yes This plan was formulated with input from patient, family (please identify family/friend involved ifapplicable) and team. All are in agreement with plan. Aliza Martino MSN-Ed, RN ACM rheostat assembler Office of Care Management Pager #[phone] * Plan of Care - Favian Mckeon [...] Chaudhary RN - 05/21/2023 4:46 PM EDTSummary: [place] [facility] referral OFFICE OF CARE MANAGEMENT [...] Type: *No Product type* / Secondary Insurance: Retrieve [facility] Last Physical Therapy Recommendation: (Home with assist [...] describing our affiliations within the [facility] and educate about their right to choose where referrals are sent. provide a list of Home Health Agencies / Durable Medical Equipment vendors which serve their preferred geographic area. They have requested referrals to: [facility] [address] [place] [id number] [facility] @ [facility] [place] Note routed to a Manager Of Engineering who will communicate referrals to facilities and provide any required information. Transportation: family or friend will provide *Brother Raymond on Tuesday 05/22 at 1000 Barriers to discharge: Does not have home 22/02 assist available until tomorrow Tuesday 05/22 Plan going forward: Discharge home into the 22/02 home care of brother Raymond with [facility] and [place] [facility] PT/OT services on Tuesday 05/22 [...] Attending: All Staff: Staff Role Juanita Almaguer Bsw Laure Ricks PA Physician Granite Cutter Magdalena Rodriguez advertising dispatch clerk Nurse Consuelo Espinoza RN Radiology Nurse Post-operative [...] Type: *No Product type* / Secondary Insurance: [employer] [place] Last Physical Therapy Recommendation: residential facility, [...] Office of Care Management letter from the Field Contact Person pertaining to rehab referrals. provide a letter describing our affiliations within the [facility] and educate about their right to choose where referrals are sent. provide the CMS Star Quality Rating handout. review the different levels of rehab including SNF, swing, and acute. provide a list of facilities within their preferred geographic area. request that they provide at least three choices for referral. They have requested referrals to: [facility] [address] [place] [address] [facility] ([facility]) [address] [place] [address] (Accepts pts only after exhausting all other local SNF options) [facility] ([facility]) ([facility]) [address] [place] [address] PHONE: [phone] FAX: [phone] [facility] Ben[facility] [place] ([facility]) [facility]) [address] [place] [place] [address] PHONE: [phone] FAX: [phone] Note routed to a Manager Of Engineering who will communicate referrals to facilities and [...] [facility] Purnima Thacker [...] from the original note were not included. [place] [facility]PHROLOGY/HYPERTENSION CONSULT NOTE PATIENT: Purnima Thacker : [...] in her course. She ultimately underwent a xmcpv-sz-atqbi procedure on and tolerated it well (see operative details). [facility] and sedated on some pressors support.. [...] 1423 05/12/23 1105 PHART 7.39 7.37 7.34* CXT5TCQ 33* 36 42 PO2ART 101 102 73* OSK8BOM 19.5* 20.4 22.1 LACTATEVEN 1.5 1.8 2.8* BOQ8LXH 40 40 40 PFRATIOART2 252 255 182 VBG (Venous Blood Gas) Recent Labs 05/12/23 1557 05/12/23 1423 05/12/23 1105 LACTATEVEN 1.5 1.8 2.8* Mixed Venous Sat Recent Labs 05/12/23 1425 05/12/23 0508 05/12/23 0321 B5CLYW7 59.9 30.7 32.7 LFT's: Recent Labs 05/14/23 0110 05/13/23 0115 05/12/23 0600 BILITOT 0.4 0.5 0.9 BILIDIR -- 0.3 -- ALBUMIN 3.6 3.0* 3.5 ALKPHOS 86 85 100 ALT 437* 903* 1,174* AST 319* 792* 1,435* No results found for: UPROTCREAT No results found for: TPROTEINPEP, ALBELECT No results found for: MICROALBUR, OMEQ55CUL No results found for: HA1C Lab Results Component Value Date CALCIUM 8.5 05/14/2023 PHOS 4.7 (H) 05/08/2023 No results found for: 25OHVITD MICROBIOLOGY: ProcedureComponentValueUnitsDate/TimeUrine culture [[id number]]Collected: 05/11/231921Lab Status: Final resultSpecimen: Clean Catch UrineUpdated: [...] consulted for assessment if this patient needs CYTOLOGY TEACHER. Atthis time, we can likely hold off on CYTOLOGY TEACHER. Her volume status appears sufficient and her metabolic kanwal angements with mild acidosis is not too profound. Patient does not have significant uremic symptoms. We can hold off for today, but the patient is a high risk candidate for needing CYTOLOGY TEACHER in future daysespecially if her Cr curve trends the direction it is for the next several days. S/p Nkmrg-tg-Dpudq TF TAVR: Management per cardiology. On milrinone gtt. PLAN: - Please obtain following diagnostics: renal US, urinalysis, urine prot/Cr ratio, urine albumin/Cr ratio, CK, uric acid, serum osmol, daily VBGs - No acute indications for CYTOLOGY TEACHER/dialysis. We will keep close eye on Cr trend, volume status, and metabolics to ensure patient still does not need CYTOLOGY TEACHER as she ensues intrinsic renal recovery [...] M.H.A., M.A. PGY-V Nephrology-Hypertension Fellow Page # [phone] [facility] [address] 2nd floor, Group Art Supervisor [address] [place] [address] * Care Management - Mario Alberto Olmos [...] Type: *No Product type* / Secondary Insurance: [facility] [place] Plan for discharge is: Home w/o [...] CV at 0945. Was intubated in the clinical lab assistant due to agitation. Maintained bedrest for [...] GOAL OUTCOME EVALUATION: * OR Attestation - Aliroi Hudson MD - 05/12/2023 2:09 PM EDT Attestation: Case Date: 05/12/2023 I performed this procedure without the involvement of a resident. Alirio Hudson MD 05/16/2023 * Brief Op Note - Alirio Hudson MD - 05/12/2023 2:07 PM EDT Brief Operative Note Patient Name: Purnima Thacker : [id number] MR#: [id number] Case Date: 05/12/2023 Surgeon: Surgeon(s) and Role: [...] procedure Note: Patient Name: Purnima Thacker : [id number] MR#: [id number] Case Date: 05/12/2023 Operators Surgeon: Surgeon(s) and [...] main with 4.0 x 30 mm Resolute [place] Drug Eluting Stent Perclose x1 + Angio-seal 8 Fr x1, RFA Manual pressure, LFA Manual pressure, LFV Endotracheal intubation (performed by cardiac anesthesia) Preliminary findings: Successful right transfemoral TAVR Dciwa-xt-Dwvuq with a 23 mm Lai 3 THV. [...] MD, M.Sc. Structural Heart Disease Fellow Pager :[phone] Antelmo Sharma MD Pager [phone] * Op Note - Alirio Hudson MD - 05/12/2023 7:37 AM EDT Preop Diagnosis: Severe aortic stenosis, symptomatic. Postop Diagnosis: Same. Procedure: Transfemoral TAVR procedure with 23mm valve. Surgeon: Alirio Hudson M.D. Recruiter Specialist: Danny CULP Procedure: The patient was taken to the clinical lab assistant. The patient had monitored anesthesia care. 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 [facility] [place] [address] STRUCTURAL HEART DISEASE CONSULTATION NOTE PRIMARY CARE [...] who had been referred for possible TAVR ismtm-vk-zyyvq evaluation. Her primary symptoms are of dyspnea [...] [facility]. 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 PROBLEM LIST: Patient Active Problem List Diagnosis Symptomatic severe aortic stenosis with low ejection fraction Mild coronary artery disease by [facility] 11/09/2022 Heart failure with reduced [...] lab ([facility]) Result Value [...] leads Confirmed by MD Harshil, Enrique Bell ([id number]) on 05/10/2023 8:11:46 AM Assessment and Plan: [...] Antelmo Sharma MD Structural Heart Disease Pager [phone] * Plan of Care - Sarahi Nice [...] Transfer from another hospital Location: admitted from [employer] [employer] Reason for Hospitalization: Critical aortic stenosis, causing symptoms Past medical History: Past Medical History: Diagnosis Date Anemia Hospitalizations Within the Past 30 Days: no previous admission in last 30 days Current Decision-Making Capacity: Self If AD's have not been completed the following surrogate would be surrogate decision maker per [place] surrogate decision making law. (Only good for 180 days) Any patient receiving care in [place] must abide by [place] law. The hierarchy for surrogate decision making [...] Current DME: none Home Address confirmed as: [address] [place] [id number] Social & Family Supports: All names listed [...] Type: *No Product type* / Secondary Insurance: Retrieve [facility] [place] ONLY if patient has Medicare A&B - Does this patient have secondary insurance?: Yes ; Prescription Coverage: Yes Preferred Pharmacy: updated to [facility] Status: Patient is a : No Primary Care Provider confirmed: Magdalena Acosta MD [phone] Patient/Caregiver Goals of Treatment: Potential Needs for [...] a 2 story home with [facility]. Patient is independent with ADL's at [...] of care planning. Alie Bradshaw RN, CM Pager-[phone] * Plan of Care - Emily Lucero RN - 05/08/2023 2:54 PM EDT OUTCOME EVALUATION NOTE: OUTCOME SUMMARY: Pt arrived from [facility] [facility] [employer]. A&O, no c/o pain or SOB. Heparin [...] PM EST Hospital Encounter [place] [phone] Markel Borjas MD [facility] [place] [address] 06/05/2024 2:00 PM EST - 06/05/2024 3:00 PM EST Surgery [facility] [phone] Markel Borjas MD [facility] [place] [address] (OSC MSURG) BONE MARROW BIOPSY AND ASPIRATION; DIAGNOSTIC (WRVU 1.44) 06/23/2024 2:00 PM EST Office Visit Hematology [place] [phone] Markel Borjas MD [facility] DR HEM[place]Y [place] [address] 11/02/2024 12:00 PM EDT Appointment [place] [address] 11/02/2024 1:00 PM EDT Office [place] [phone] Magdalena Peralta MD [facility] [place] [address] 03/01/2025 4:15 PM EDT Office Visit Dermatology at [facility] [address] [facility] [place] [phone] Marek Bonilla MD [address], [place] [address] Scheduled Procedures Name Priority Associated Diagnoses Date/Ti [...] Heart Cath W/Inj L Ventriculography, Img S&I (99906) 05/12/2023 7:37 AM EDT Aortic valve stenosis, [...] DOPP COLOR DOPP (07/08/2023 12:15 PM EST) [facility] EF 20 HEARTLAB SYSTEM Anatomical Region Laterality Modality Cardiac Other 07/08/2023 10:3 1 AM EST Narrative 07/08/2023 12:26 PM EST [address] [place] [address] ? Echocardiogram Report Name: KIRSTIE, PURNIMA M ?Study Date: 07/08/2023 10:31 AMBP: 118/60 mmHg ? Patient Location: : 1955 ? Height: 155 cm ? Account: [id number] Age: 67 yrs ? Weight: 74 kg Gender: Female ?BSA: 1.7 m2 Ordering Physician: ALIRIO HUDSON Referring Physician: VINOD JUÁREZ Performed By: Felicia Norris RDCS Reason For Study: S/P TAVR Exam Location: [facility]. Interpretation Summary Left ventricular systolic function is [...] no significant change (post-procedure). Procedure Limited - 23660. Doppler - 29940. Color Doppler - 25688. Satisfactory quality. This study is limited because [...] Note Lee Kincaid MD - 07/08/2023 [address] [place] [id number] Echocardiogram Report Name: PURNIMA THACKER Study Date: 0:31 AMBP: 118/60 mmHg Patient Location: : 1955 Height: 155 cm Account: [id number] Age: 67 yrs Weight: 74 kg Gender: Female BSA: 1.7 m2 Ordering Physician: ALIRIO HUDSON Referring Physician: VINOD JUÁREZ Performed By: Felicia Norris RDCS Reason For Study: S/P TAVR Exam Location: [facility]. Interpretation Summary Left ventricular systolic function is [...] is nosignificant change (post-procedure). Procedure Limited - 24303. Doppler - 31995. Color Doppler - 23656. Satisfactoryquality. This study is limited because of [...] Lab Alirio Hudson MD CHEMISTRY ORDERABLE S [facility] [place] [address] * (ABNORMAL) Basic Metabolic Panel (non-fasting) (05/22/2023 3:57 AM EDT) Glucose 88 65 - 199 mg/dL [facility] Comment:Diabetes: >=200 mg/d L plus symptoms Blood Urea Nitrogen 21(H) 8 - 18 mg/dL [facility] Creatinine 0.69(L) 0.70 - 1.20 mg/dL [facility] Sodium 136 135 - 145 mmol/L [facility] Potassium 3.6 3.5 - 5.0 mmol/L [facility] Comment: Please note: ??Patients with WBC >100,000 may have falsely elevated Potassium levels. ??For accurate Potassium quantification in these patients send serum separator tube (gold top) for subsequent determinations. ??Contact the Clinical Chemistry Laboratory if there are any questions. Chloride 102 98 - 107 mmol/L [facility] Carbon Dioxide 23 22 - 31 mmol/L [facility] Anion Gap 11 5 - 15 mmol/L [facility] Calcium 8.6 8.5 - 10.5 mg/dL [facility] Est Glomerular Filtration Rate 95 >=60 mL/min/1. 73 m?? [facility] [...] Agency Comment Spec In Lab Mara Maggie DANDY OPERATOR CHEMISTRY ORDERABL ES Performing Organization Address [facility] Co de Phone Number [facility] [place] [address] * (ABNORMAL) Basic Metabolic Panel (non-fasting) (05/21/2023 5:06 AM EDT) Glucose 87 65 - 199 mg/dL [facility] Comment:Diabetes: >=200 mg/d L plus symptoms Blood Urea Nitrogen 25(H) 8 - 18 mg/dL [facility] Creatinine 0.84 0.70 - 1.20 mg/dL [facility] Sodium 136 135 - 145 mmol/L [facility] Potassium 3.6 3.5 - 5.0 mmol/L [facility] Comment: Please note: ??Patients with WBC >100,000 may have falsely elevated Potassium levels. ??For accurate Potassium quantification in these patients send serum separator tube (gold top) for subsequent determinations. ??Contact the Clinical Chemistry Laboratory if there are any questions. Chloride 102 98 - 107 mmol/L [facility] Carbon Dioxide 26 22 - 31 mmol/L [facility] Anion Gap 8 5 - 15 mmol/L [facility] Calcium 8.9 8.5 - 10.5 mg/dL [facility] Est Glomerular Filtration Rate 76 >=60 mL/min/1. 73 m?? [facility] [...] Narrative Resulting Agency Comment Spec In [facility] DANDY OPERATOR CHEMISTRY ORDERABL ES Performing Organization Address [facility]/ZIP Co de Phone Number [facility] [place] [place] [address] * Lavender Tube HOLD (05/20/2023 2:52 AM EDT) Lavender Hold Sample in lab. [facility] Blood Venous Draw / Unknown 05/20/2023 2:52 AM EDT 05/20/2023 3:04 AM EDT Mara Serrano DANDY OPERATOR HEMATOLOGY ORDERAB LES [facility] [place] [address] * (ABNORMAL) Basic Metabolic Panel (non-fasting) (05/20/2023 2:52 AM EDT) Glucose 152 65 - 199 mg/dL [facility] Comment:Diabetes: >=200 mg/d L plus symptoms Blood Urea Nitrogen 33(H) 8 - 18 mg/dL [facility] Creatinine 0.82 0.70 - 1.20 mg/dL [facility] Sodium 137 135 - 145 mmol/L [facility] Potassium 3.7 3.5 - 5.0 mmol/L [facility] Comment: Please note: ??Patients with WBC >100,000 may have falsely elevated Potassium levels. ??For accurate Potassium quantification in these patients send serum separator tube (gold top) for subsequent determinations. ??Contact the Clinical Chemistry Laboratory if there are any questions. Chloride 99 98 - 107 mmol/L [facility] Carbon Dioxide 22 22 - 31 mmol/L [facility] Anion Gap 16(H) 5 - 15 mmol/L [facility] Calcium 9.0 8.5 - 10.5 mg/dL [facility] Est Glomerular Filtration Rate 78 >=60 mL/min/1. 73 m?? [facility] [...] Agency Comment Spec In Lab Mara [place] DANDY OPERATOR CHEMISTRY ORDERABL ES Performing Organization Address [facility] Co de Phone Number [facility] [place] [address] * (ABNORMAL) Potassium (05/20/2023 2:52 AM EDT) [facility] Signature Potassium 3.4(L) 3.5 - 5.0 mmol/L [facility] [...] Agency Comment Spec In Lab Mara [place] DANDY OPERATOR CHEMISTRY ORDERABL ES Performing Organization Address [facility] de Phone Number [facility] [place] [address] * XR Chest PA & Lateral (Generic) [...] who have questions please contact the health careers adviser that requested your imaging first. ? Narrative [...] patients who have questions please contactthe health careers adviser that requested your imaging first. Alirio Hudson MD IMG DX ORDERABLES * (ABNORMAL) Basic Metabolic Panel (non-fasting) (05/19/2023 5:49 AM EDT) Glucose 93 65 - 199 mg/dL [facility] Comment:Diabetes: >=200 mg/d L plus symptoms Blood Urea Nitrogen 45(H) 8 - 18 mg/dL [facility] Creatinine 1.02 0.70 - 1.20 mg/dL [facility] Sodium 138 135 - 145 mmol/L [facility] Potassium 3.9 3.5 - 5.0 mmol/L [facility] Comment: Please note: ??Patients with WBC >100,000 may have falsely elevated Potassium levels. ??For accurate Potassium quantification in these patients send serum separator tube (gold top) for subsequent determinations. ??Contact the Clinical Chemistry Laboratory if there are any questions. Chloride 102 98 - 107 mmol/L [facility] Carbon Dioxide 26 22 - 31 mmol/L [facility] Anion Gap 10 5 - 15 mmol/L [facility] Calcium 9.7 8.5 - 10.5 mg/dL [facility] Est Glomerular Filtration Rate 60 >=60 mL/min/1. 73 m?? [facility] [...] Lab Mara Serrano APRN CHEMISTRY ORDERABL ES [facility] [place] [address] * IR Chest Tube Placement Right (05/18/2023 [...] EDT) Glucose 95 65 - 199 mg/dL [facility] Comment:Diabetes: >=200 mg/d L plus symptoms Blood Urea Nitrogen 71(H) 8 - 18 mg/dL [facility] Comment:result rechecked-JSJ Creatinine 1.64(H) 0.70 - 1.20 mg/dL [facility] Comment:result rechecked-JSJ Sodium 137 135 - 145 mmol/L [facility] Potassium 3.7 3.5 - 5.0 mmol/L [facility] Comment: Please note: ??Patients with WBC >100,000 may have falsely elevated Potassium levels. ??For accurate Potassium quantification in these patients send serum separator tube (gold top) for subsequent determinations. ??Contact the Clinical Chemistry Laboratory if there are any questions. Chloride 100 98 - 107 mmol/L [facility] Carbon Dioxide 24 22 - 31 mmol/L [facility] Anion Gap 13 5 - 15 mmol/L [facility] Calcium 9.7 8.5 - 10.5 mg/dL [facility] Est Glomerular Filtration Rate 34(L) >=60 mL/min/1. 73 m?? [facility] [...] Agency Comment Spec In Lab Mara Serrano DANDY OPERATOR CHEMISTRY ORDERABL ES [facility] [place] [place] [address] * XR Chest PA & Lateral (Generic) [...] who have questions please contact the health careers adviser that requested your imaging first. ? Narrative [...] patients who have questions please contactthe health careers adviser that requested your imaging first. Alirio Hudson MD IMG DX ORDERABLES * (ABNORMAL) Comprehensive metabolic panel (non-fasting) (05/17/2023 4:35 AM EDT) Glucose 89 65 - 199 mg/dL [facility] Comment:Diabetes: >=200 mg/d L plus symptoms Blood Urea Nitrogen 97(H) 8 - 18 mg/dL [facility] Creatinine 2.97(H) 0.70 - 1.20 mg/dL [facility] Comment:result rechecked-JS Sodium 135 135 - 145 mmol/L [facility] Potassium 4.1 3.5 - 5.0 mmol/L [facility] Comment: Please note: ??Patients with WBC >100,000 may have falsely elevated Potassium levels. ??For accurate Potassium quantification in these patients send serum separator tube (gold top) for subsequent determinations. ??Contact the Clinical Chemistry Laboratory if there are any questions. Chloride 97(L) 98 - 107 mmol/L [facility] Carbon Dioxide 22 22 - 31 mmol/L [facility] Anion Gap 16(H) 5 - 15 mmol/L [facility] Calcium 9.6 8.5 - 10.5 mg/dL [facility] Protein, Total 6.5 6.1 - 8.0 g/dL [facility] Albumin 3.7 3.2 - 5.2 g/dL [facility] Aspartate Aminotransferase 58(H) 0 - 30 unit/L [facility] Alanine Aminotransferase 66(H) 0 - 30 unit/L [facility] Alkaline Phosphatase 86 35 - 105 unit/L [facility] Bilirubin, Total 0.6 0.2 - 1.3 mg/dL [facility] Est Glomerular Filtration Rate 17(L) >=60 mL/min/1. 73 m?? [facility] [...] MD CHEMISTRY ORDERABLE S Performing Organization Address [facility] Co de Phone Number [facility] [place] [address] * Potassium (05/16/2023 11:15 PM EDT) Potassium 3.7 3.5 - 5.0 mmol/L [facility] [...] Lab Alirio Hudson MD CHEMISTRY ORDERABLE S [facility] [place] [address] * Magnesium (05/16/2023 5:22 PM EDT) Magnesium 0.96 0.69 - 1.07 mmol/L [facility] Blood 05/16/2023 5:22 PM EDT 05/16/2023 5:27 PM EDT Narrative Resulting Agency Comment Spec In Lab Alirio Hudson MD CHEMISTRY ORDERABLE S [facility] [place] [address] * (ABNORMAL) Basic Metabolic Panel (non-fasting) (05/16/2023 5:22 PM EDT) Glucose 106 65 - 199 mg/dL [facility] Comment:Diabetes: >=200 mg/d L plus symptoms Blood Urea Nitrogen 103(H) 8 - 18 mg/dL [facility] Creatinine 3.91(H) 0.70 - 1.20 mg/dL [facility] Comment:result rechecked-imm Sodium 132(L) 135 - 145 mmol/L [facility] Potassium 3.6 3.5 - 5.0 mmol/L [facility] Comment: Please note: ??Patients with WBC >100,000 may have falsely elevated Potassium levels. ??For accurate Potassium quantification in these patients send serum separator tube (gold top) for subsequent determinations. ??Contact the Clinical Chemistry Laboratory if there are any questions. Chloride 92(L) 98 - 107 mmol/L [facility] Carbon Dioxide 22 22 - 31 mmol/L [facility] Anion Gap 18(H) 5 - 15 mmol/L [facility] Calcium 9.7 8.5 - 10.5 mg/dL [facility] Est Glomerular Filtration Rate 12(L) >=60 mL/min/1. 73 m?? [facility] [...] CHEMISTRY ORDERABLE S Performing Organization Address City/[facility] Co de Phone Number [facility] [place] [place] [address] * (ABNORMAL) Potassium (05/16/2023 11:43 AM EDT) Potassium 3.3(L) 3.5 - 5.0 mmol/L [facility] [...] MD CHEMISTRY ORDERABLE S Performing Organization Address [facility] Co de Phone Number [facility] [place] [address] * (ABNORMAL) Ferritin (05/16/2023 4:41 AM EDT) Ferritin 1,813(H) 30 - 400 ng/mL [facility] Comment: Pediatric reference ranges not verified at [facility], interpret with caution. Reference ranges for females greater than 50 years of age approach values for men, i.e., 30-400 ng/mL. Blood 05/16/2023 4:41 AM EDT 05/16/2023 4:54 AM EDT Narrative Resulting Agency Comment Spec In Lab Kristopher Ayoub MD CHEMISTRY ORDERABLES Performing Organization Address City/[facility]/ZIP Co de Phone Number [facility] [place] [place] [address] * (ABNORMAL) PTH (05/16/2023 4:41 AM EDT) Parathyroid Hormone 120(H) 15 - 65 pg/mL [facility] Blood 05/16/2023 4:41 AM EDT 05/16/2023 4:54 AM EDT Narrative Resulting Agency Comment Spec In Lab Kristopher Ayoub MD CHEMISTRY ORDERABLES Performing Organization Address [facility] Co de Phone Number [facility] [place] [address] * Vitamin D, 25-Hydroxy (05/16/2023 4:41 AM EDT) Vitamin D Total 25 OH 33 21 - 100 ng/mL [facility] Vit D Interp Sufficient [facility] Blood 05/16/2023 4:41 AM EDT 05/16/2023 4:54 AM EDT Narrative Resulting Agency Comment Spec In Lab Kirstopher Ayoub MD CHEMISTRY ORDERABLES Performing Organization Address [facility] Co de Phone Number [facility] [place] [address] * (ABNORMAL) Blood Gas Venous ([facility]) (05/16/2023 4:22 AM EDT) pH, Venous 7.41 7.32 - 7.42 [facility] PCO2, Venous 32(L) 41 - 51 mmHg [facility] PO2, Venous 73(H) 25 - 40 mmHg [facility] Bicarbonate, Venous 19.6 mmol/L [facility] Base Excess, Venous -5.1 mmol/L [facility] Hgb Blood Gas 9.7(L) 11.7 - 15.5 g/dL [facility] Oxyhemoglobin, Venous 92.8 % [facility] Carboxyhemoglob in, Venous 0.1 % [facility] Comment: Nonsmokers: 0.5-1.5% COHB Smokers: Variable, but usually less than 10% Toxic: 20-30% COHB Lethal: Greater than 60% COHB Methemoglobin, Venous 0.3 <=1.5 % [facility] Na Whole Blood 130(L) 135 - 145 mmol/L [facility] K Whole Blood 3.7 3.5 - 5.0 mmol/L [facility] Comment: Please note: Patients with WBC >100,000 may have falsely elevated Potassium levels. Contact the Clinical Chemistry Laboratory if there are any questions. ICa Whole Blood 1.15 1.15 - 1.33 mmol/L [facility] Comment: Note: ??Total bilirubin higher than 20 mg/dL may lead to falsely low ionized calcium. CL Whole Blood 95(L) 98 - 107 mmol/L [facility] Gluc Whole Bld 82 65 - 199 mg/dL [facility] Comment:Diabetes: >=200 mg/d L plus symptoms Lactate WB 1.1 0.5 - 2.2 mmol/L [facility] Blood Gas Source Venous [facility] Blood Venous Draw / Unknown 05/16/2023 4:22 AM EDT 05/16/2023 4:31 AM EDT Narrative Resulting Agency Comment Spec In Lab Bonita TOBAR CHEMISTRY ORDERABLES Performing Organization Address City/State/[facility] Co de Phone Number [facility] [place] [address] * (ABNORMAL) Differential, Automated (05/16/2023 4:20 AM EDT) Neutrophil % 84.1 % [facility] Neutrophil Absolute 6.22(H) 1.70 - 6.10 x10(3)/mc L [facility] Lymph % 5.8 % [facility] Lymphocytes Abs 0.4(L) 0.9 - 3.2 x10(3)/mc L [facility] Monocyte % 8.8 % [facility] Monocyte Abs 0.6 0.3 - 0.9 x10(3)/mc L [facility] Eos % 0.4 % [facility] Eosinophils Abs 0.0 0.0 - 0.4 x10(3)/mc L [facility] Basophil % 0.0 % [facility] Baso Absolute 0.0 0.0 - 0.1 x10(3)/mc L [facility] Immature Gran % 0.90 % [facility] Comment: Immature granulocytes(IG's)percentage and absolute count will include metamyelocytes, myelocytes, and promyelocytes. Blood smears from CBCs yielding IG's will be scanned manually for concordance. If this scan disagrees with the automated IG or if promyelocytes are noted, a manual differential will be performed. Immature Gran Absolute 0.07(H) 0.00 - 0.04 x10(3)/mc L [facility] Blood 05/16/2023 4:20 AM EDT 05/16/2023 4:29 AM EDT Narrative Resulting Agency Comment Spec In Lab James Agustin MD HEMATOLOGY ORDER JODIE [facility] [place] [address] * (ABNORMAL) Hemogram (05/16/2023 4:20 AM EDT) White Blood Cell 7.4 4.0 - 9.5 x10(3)/mc L [facility] Red Blood Cell 2.40(L) 4.00 - 5.21 x10(6)/ L [facility] Hemoglobin 7.8(L) 11.7 - 15.5 g/dL [facility] Hematocrit 22.5(L) 35.7 - 45.8 % [facility] Mean Cell Volume 93.8 82.6 - 94.4 fL [facility] Mean Cell Hemoglobin 32.5(H) 27.1 - 32.0 pg [facility] Mean Cell Hemoglobin Concentration 34.7 31.7 - 35.0 g/dL [facility] Platelet 120(L) 145 - 357 x10(3)/mc L [facility] RDW Standard Deviation 42.9 37.0 - 46.0 fL [facility] RDW coefficient of variation 12.9 11.5 - 14.1 % [facility] Mean Platelet Volume 11.3 7.6 - 12.9 fL [facility] NRBC% auto 0.7 % [facility] NRBC Absolute 0.050(H) 0.000 - 0.000 x10(3)/mc L [facility] Blood 05/16/2023 4:20 AM EDT 05/16/2023 4:29 AM EDT Narrative Resulting Agency Comment Spec In Lab James Agustin MD HEMATOLOGY ORDER JODIE Performing Organization Address City/State/[facility] Co de Phone Number [facility] [place] [place] [address] * (ABNORMAL) Basic Metabolic Panel (non-fasting) (05/16/2023 4:20 AM EDT) Glucose 89 65 - 199 mg/dL [facility] Comment:Diabetes: >=200 mg/d L plus symptoms Blood Urea Nitrogen 108(H) 8 - 18 mg/dL [facility] Creatinine 4.74(H) 0.70 - 1.20 mg/dL [facility] Comment:result rechecked-OLIVA Sodium 132(L) 135 - 145 mmol/L [facility] Potassium 3.9 3.5 - 5.0 mmol/L [facility] Comment: Please note: ??Patients with WBC >100,000 may have falsely elevated Potassium levels. ??For accurate Potassium quantification in these patients send serum separator tube (gold top) for subsequent determinations. ??Contact the Clinical Chemistry Laboratory if there are any questions. Chloride 95(L) 98 - 107 mmol/L [facility] Carbon Dioxide 18(L) 22 - 31 mmol/L [facility] Anion Gap 19(H) 5 - 15 mmol/L [facility] Calcium 9.2 8.5 - 10.5 mg/dL [facility] Est Glomerular Filtration Rate 10(L) >=60 mL/min/1. 73 m?? [facility] [...] CHEMISTRY ORDERABLE S Performing Organization Address City/[facility]/ZIP Co de Phone Number [facility] [place] [place] [address] * (ABNORMAL) Iron and TIBC (05/16/2023 4:20 AM EDT) Iron 31 30 - 150 mcg/dL [facility] TIBC 259 250 - 450 mcg/dL [facility] Iron Saturation 12(L) 20 - 50 % [facility] Blood 05/16/2023 4:20 AM EDT 05/16/2023 4:29 AM EDT Narrative Resulting Agency Comment Spec In Lab Kristopher Ayoub MD CHEMISTRY ORDERABLES Performing Organization Address [facility] Co de Phone Number [facility] [place] [address] * (ABNORMAL) Basic Metabolic Panel (non-fasting) (05/15/2023 12:50 AM EDT) Glucose 101 65 - 199 mg/dL [facility] Comment:Diabetes: >=200 mg/d L plus symptoms Blood Urea Nitrogen 109(H) 8 - 18 mg/dL [facility] Creatinine 5.62(H) 0.70 - 1.20 mg/dL [facility] Comment:result rechecked-KS Sodium 131(L) 135 - 145 mmol/L [facility] Comment:result rechecked-KS Potassium 3.7 3.5 - 5.0 mmol/L [facility] Comment: result rechecked-KS Please note: ??Patients with WBC >100,000 may have falsely elevated Potassium levels. ??For accurate Potassium quantification in these patients send serum separator tube (gold top) for subsequent determinations. ??Contact the Clinical Chemistry Laboratory if there are any questions. Chloride 92(L) 98 - 107 mmol/L [facility] Comment:result rechecked-KS Carbon Dioxide 18(L) 22 - 31 mmol/L [facility] Comment:result rechecked-KS Anion Gap 21(H) 5 - 15 mmol/L [facility] Calcium 8.9 8.5 - 10.5 mg/dL [facility] Est Glomerular Filtration Rate 8(L) >=60 mL/min/1. 73 m?? [facility] Co de Phone Number [facility] [place] [address] * (ABNORMAL) Hemogram (05/15/2023 12:50 AM EDT) White Blood Cell 9.1 4.0 - 9.5 x10(3)/mc L [facility] Red Blood Cell 2.19(L) 4.00 - 5.21 x10(6)/mc L [facility] Hemoglobin 7.2(L) 11.7 - 15.5 g/dL [facility] Hematocrit 20.6(L) 35.7 - 45.8 % [facility] Mean Cell Volume 94.1 82.6 - 94.4 fL [facility] Mean Cell Hemoglobin 32.9(H) 27.1 - 32.0 pg [facility] Mean Cell Hemoglobin Concentration 35.0 31.7 - 35.0 g/dL [facility] Platelet 109(L) 145 - 357 x10(3)/mc L [facility] RDW Standard Deviation 43.6 37.0 - 46.0 fL [facility] RDW coefficient of variation 12.9 11.5 - 14.1 % [facility] Mean Platelet Volume 10.4 7.6 - 12.9 fL [facility] NRBC% auto 2.1 % [facility] NRBC Absolute 0.190(H) 0.000 - 0.000 x10(3)/mc L [facility] Blood 05/15/2023 12:5 0 AM EDT 05/15/2023 12:52 AM EDT Narrative Resulting Agency Comment Spec In Lab Alirio Hudson MD HEMATOLOGY ORDERABL ES Performing Organization Address City/State/[facility] Co de Phone Number [facility] [place] [address] * (ABNORMAL) BLOOD GAS 2 VENOUS (05/15/2023 12:49 AM EDT) pH, Venous 7.33 7.32 - 7.42 [facility] PCO2, Venous 37(L) 41 - 51 mmHg [facility] PO2, Venous 34 25 - 40 mmHg [facility] Bicarbonate, Venous 19.1 mmol/L [facility] Base Excess, Venous -6.8 mmol/L [facility] Hgb Blood Gas 10.8(L) 11.7 - 15.5 g/dL [facility] Oxyhemoglobin, Venous 58.1 % [facility] Carboxyhemoglob in, Venous 0.3 % [facility] Comment: Nonsmokers: 0.5-1.5% COHB Smokers: Variable, but usually less than 10% Toxic: 20-30% COHB Lethal: Greater than 60% COHB Methemoglobin, Venous 0.6 <=1.5 % [facility] Na Whole Blood 136 135 - 145 mmol/L [facility] K Whole Blood 3.7 3.5 - 5.0 mmol/L [facility] Comment: Please note: Patients with WBC >100,000 may have falsely elevated Potassium levels. Contact the Clinical Chemistry Laboratory if there are any questions. ICa Whole Blood 1.12(L) 1.15 - 1.33 mmol/L [facility] Comment: Note: ??Total bilirubin higher than 20 mg/dL may lead to falsely low ionized calcium. CL Whole Blood 95(L) 98 - 107 mmol/L [facility] Gluc Whole Bld 101 65 - 199 mg/dL [facility] Comment:Diabetes: >=200 mg/d L plus symptoms Lactate WB 1.3 0.5 - 2.2 mmol/L [facility] Flow, Mike 1.0 LPM [facility] Blood Gas Source Venous [facility] Blood 05/15/2023 12:4 9 AM EDT 05/15/2023 12:49 AM EDT Alirio Hudson MD POINT OF CARE TEST ORDERABLES Performing Organization Address City/State/[facility] Co de Phone Number [facility] [place] [address] * US Retroperitoneal Complete (05/14/2023 3:53 PM [...] who have questions, please contact the health careers adviser that requested your imaging first. ? Hayden Robledo, Staff Physician Electronically Signed Final Report ?? 05/14/2023 04:39 pm Narrative 05/14/2023 4:39 PM EDT Renal ? (Signed Final 05/14/2023 04:39 pm) PATIENT INFO: ID #: ? [id number] ?: ??[birth year] (67 yrs)(F) Name: ? PURNIMA THACKER ?Visit Date: 05/14/2023 03:44 pm PERFORMED BY: Attending: ?Meena CULP, Hayden Stafford Resident: ? Nell CULP, Anand August Performed By: ? Consuelo Tello RDMS Referred By: ?ALIRIO HUDSON Location: ? [place] SERVICE(S) PROVIDED: URETRO - Retroperitoneal Complete - [id number] ? [id number] INDICATIONS: [facility] COMPARISON: CT: Abdomen/Pelvis 05/11/23 RIGHT [...] 05/14/2023 04:39 pm) PATIENT INFO: ID #: [id number] : [birth year] (67 yrs)(F) Name: PURNIMA THACKER Visit Date: 05/14/2023 03:44 pm PERFORMED BY: Attending: Hayden Robledo MD Resident: Anand Camejo MD Performed By: Consuelo Tello RDMS Referred By: ALIRIO HUDSON Location: [place] SERVICE(S) PROVIDED: URETRO - Retroperitoneal Complete - [id number] INDICATIONS: [facility]ANS COMPARISON: CT: Abdomen/Pelvis 05/11/23 RIGHT [...] who have questions, please contact the health careers adviser that requested your imaging first. Hayden Robledo, Staff Physician Electronically Signed Final Report 05/14/2023 04:39 pm Alirio Hudson MD IMG US GEN ORDERABL ES * CK (05/14/2023 3:17 PM EDT) Creatine Kinase 123 0 - 160 unit/L [facility] Blood 05/14/2023 3:17 PM EDT 05/14/2023 3:31 PM EDT Narrative Resulting Agency Comment Spec In Lab Alirio Hudson MD CHEMISTRY ORDERABLE S Performing Organization Address [facility] Co de Phone Number [facility] [place] [place] [address] * (ABNORMAL) Uric acid (05/14/2023 3:17 PM EDT) Pathologist [facility] Uric Acid 14.9(H) 2.5 - 6.5 mg/dL [facility] Blood 05/14/2023 3:17 PM EDT 05/14/2023 3:31 PM EDT Narrative Resulting Agency Comment Spec In Lab Alirio Hudson MD CHEMISTRY ORDERABLE S Performing Organization Address [facility] de Phone Number [facility] [place] [place] [address] * (ABNORMAL) Osmolality (05/14/2023 3:17 PM EDT) Pathologist [facility] Osmolality 311(H) 275 - 295 mOsm/kg [facility] Blood 05/14/2023 3:17 PM EDT 05/14/2023 3:31 PM EDT Narrative Resulting Agency Comment Spec In Lab Alirio Hudson MD CHEMISTRY ORDERABLE S Performing Organization Address [facility] de Phone Number [facility] [place] [place] [address] * (ABNORMAL) Differential, Automated (05/14/2023 1:10 AM EDT) Pathologist [facility] Neutrophil % 87.2 % [facility] Neutrophil Absolute 9.74(H) 1.70 - 6.10 x10(3)/mc L [facility] Lymph % 3.9 % [facility] Lymphocytes Abs 0.4(L) 0.9 - 3.2 x10(3)/mc L [facility] Monocyte % 7.9 % [facility] Monocyte Abs 0.9 0.3 - 0.9 x10(3)/mc L [facility] Eos % 0.0 % [facility] Eosinophils Abs 0.0 0.0 - 0.4 x10(3)/mc L [facility] Basophil % 0.1 % [facility] Baso Absolute 0.0 0.0 - 0.1 x10(3)/mc L [facility] Immature Gran % 0.90 % [facility] Comment: Immature granulocytes(IG's)percentage and absolute count will include metamyelocytes, myelocytes, and promyelocytes. Blood smears from CBCs yielding IG's will be scanned manually for concordance. If this scan disagrees with the automated IG or if promyelocytes are noted, a manual differential will be performed. Immature Gran Absolute 0.10(H) 0.00 - 0.04 x10(3)/ L [facility] Blood 05/14/2023 1:10 AM EDT 05/14/2023 1:24 AM EDT Narrative Resulting Agency Comment Spec In Lab Bonita TOBAR HEMATOLOGY ORDERABLE S [facility] [place] [address] * (ABNORMAL) Hemogram (05/14/2023 1:10 AM EDT) White Blood Cell 11.2(H) 4.0 - 9.5 x10(3)/mc L [facility] Red Blood Cell 2.19(L) 4.00 - 5.21 x10(6)/mc L [facility] Hemoglobin 7.2(L) 11.7 - 15.5 g/dL [facility] Hematocrit 20.3(L) 35.7 - 45.8 % [facility] Mean Cell Volume 92.7 82.6 - 94.4 fL [facility] Mean Cell Hemoglobin 32.9(H) 27.1 - 32.0 pg [facility] Mean Cell Hemoglobin Concentration 35.5(H) 31.7 - 35.0 g/dL [facility] Platelet 112(L) 145 - 357 x10(3)/mc L [facility] RDW Standard Deviation 41.4 37.0 - 46.0 fL [facility] RDW coefficient of variation 12.5 11.5 - 14.1 % [facility] Mean Platelet Volume 10.4 7.6 - 12.9 fL [facility] NRBC% auto 1.5 % [facility] NRBC Absolute 0.170(H) 0.000 - 0.000 x10(3)/mc L [facility] Blood 05/14/2023 1:10 AM EDT 05/14/2023 1:24 AM EDT Narrative Resulting Agency Comment Spec In Lab Bonita TOBAR HEMATOLOGY ORDERABLE S [facility] [place] [address] * (ABNORMAL) Comprehensive metabolic panel (non-fasting) (05/14/2023 1:10 AM EDT) Glucose 120 65 - 199 mg/dL [facility] Comment:Diabetes: >=200 mg/d L plus symptoms Blood Urea Nitrogen 98(H) 8 - 18 mg/dL [facility] Creatinine 4.80(H) 0.70 - 1.20 mg/dL [facility] Comment:result rechecked-[facility] [place] Sodium 132(L) 135 - 145 mmol/L [facility] Potassium 4.1 3.5 - 5.0 mmol/L [facility] Comment: Please note: ??Patients with WBC >100,000 may have falsely elevated Potassium levels. ??For accurate Potassium quantification in these patients send serum separator tube (gold top) for subsequent determinations. ??Contact the Clinical Chemistry Laboratory if there are any questions. Chloride 94(L) 98 - 107 mmol/L [facility] Carbon Dioxide 18(L) 22 - 31 mmol/L [facility] Anion Gap 20(H) 5 - 15 mmol/L [facility] Calcium 8.5 8.5 - 10.5 mg/dL [facility] Protein, Total 5.8(L) 6.1 - 8.0 g/dL [facility] Albumin 3.6 3.2 - 5.2 g/dL [facility] Aspartate Aminotransferase 319(H) 0 - 30 unit/L [facility] Alanine Aminotransferase 437(H) 0 - 30 unit/L [facility] Alkaline Phosphatase 86 35 - 105 unit/L [facility] Bilirubin, Total 0.4 0.2 - 1.3 mg/dL [facility] Est Glomerular Filtration Rate 9(L) >=60 mL/min/1. 73 m?? [facility] [...] MD CHEMISTRY ORDERABLE S Performing Organization Address [facility] de Phone Number [facility] [place] [place] [address] * APTT (05/13/2023 10:15 AM EDT) Partial Thromboplastin Time 27 25 - 37 sec [facility] Comment: The PTT is NOT appropriate for heparin monitoring. Use the Anti-Xa level for heparin monitoring (HEP UFH) or LMWH monitoring (HEP LMW). A PTT less than 37 seconds generally indicates adequate hemostasis. Blood 05/13/2023 10:1 5 AM EDT 05/13/2023 10:46 AM EDT Narrative Resulting Agency Comment Spec In Lab Alirio Hudson MD HEMATOLOGY ORDERABL ES Performing Organization Address [facility] Co de Phone Number [facility] [place] [place] [address] * (ABNORMAL) Prothrombin Time (05/13/2023 10:15 AM EDT) Prothrombin Time 14.6(H) 9.4 - 12.5 sec [facility] International Normalization Ratio 1.3 [facility] Comment: An INR <2.0 indicates [...] HEMATOLOGY ORDERABL ES Performing Organization Address City/[facility]/ZIP Co de Phone Number [facility] [place] [address] * EKG 12 Lead (05/13/2023 9:22 AM EDT) Ventricular rate 92 BPM MUSE SYSTEM Atrial Rate 92 BPM MUSE SYSTEM P-R Interval 140 ms MUSE SYSTEM QRS Duration 104 ms MUSE SYSTEM Q-T Interval 384 ms MUSE SYSTEM QTC Calculated (Bezet) 474 ms MUSE SYSTEM Calculated P [place] 33 degrees MUSE SYSTEM Calculated R [place] 41 degrees MUSE SYSTEM Calculated T [place] -35 degrees MUSE SYSTEM INTERPRETATION Sinus rhythm with frequent Premature ventricular complexes Septal infarct , age undetermined ST & T wave abnormality, consider lateral ischemia Abnormal ECG When compared with ECG of 12-MAY-2023 10:10, Premature ventricular complexes are now Present I personally reviewed the tracing and edited the fellows interpretation Confirmed by fellow MD Anitha, Carissa ([id number]) on 05/13/2023 3:25:30 PM Confirmed by Maxx Best ([id number]) on 05/13/2023 8:30:56 PM MUSE SYSTEM 05/13/2023 9:22 AM EDT 05/13/2023 8:30 PM EDT Alirio Hudson MD ECG ORDERABLES Performing Organization Address City/[facility]/ZIP Co de Phone Number MUSE SYSTEM * (ABNORMAL) Differential, Automated (05/13/2023 1:15 AM EDT) Pathologist [facility] Neutrophil % 88.1 % [facility] Neutrophil Absolute 7.62(H) 1.70 - 6.10 x10(3)/mc L [facility] Lymph % 3.1 % [facility] Lymphocytes Abs 0.3(L) 0.9 - 3.2 x10(3)/mc L [facility] Monocyte % 7.9 % [facility] Monocyte Abs 0.7 0.3 - 0.9 x10(3)/mc L [facility] Eos % 0.0 % [facility] Eosinophils Abs 0.0 0.0 - 0.4 x10(3)/ L [facility] Basophil % 0.1 % [facility] Baso Absolute 0.0 0.0 - 0.1 x10(3)/[facility] Immature Gran % 0.80 % [facility] Comment: Immature granulocytes(IG's)percentage and absolute count will include metamyelocytes, myelocytes, and promyelocytes. Blood smears from CBCs yielding IG's will be scanned manually for concordance. If this scan disagrees with the automated IG or if promyelocytes are noted, a manual differential will be performed. Immature Gran Absolute 0.07(H) 0.00 - 0.04 x10(3)/ L [facility] Blood 05/13/2023 1:15 AM EDT 05/13/2023 1:29 AM EDT Narrative Resulting Agency Comment Spec In Lab Lorri TOBAR HEMATOLOGY ORDERABLE S [facility] [place] [address] * (ABNORMAL) Hemogram (05/13/2023 1:15 AM EDT) [facility] White Blood Cell 8.6 4.0 - 9.5 x10(3)/mc L [facility] Red Blood Cell 2.37(L) 4.00 - 5.21 x10(6)/[facility] Hemoglobin 7.8(L) 11.7 - 15.5 g/dL [facility] Hematocrit 22.2(L) 35.7 - 45.8 % [facility] Mean Cell Volume 93.7 82.6 - 94.4 fL [facility] Mean Cell Hemoglobin 32.9(H) 27.1 - 32.0 pg [facility] Mean Cell Hemoglobin Concentration 35.1(H) 31.7 - 35.0 g/dL [facility] Platelet 130(L) 145 - 357 x10(3)/mc L [facility] RDW Standard Deviation 41.7 37.0 - 46.0 fL [facility] RDW coefficient of variation 12.5 11.5 - 14.1 % [facility] Mean Platelet Volume 10.2 7.6 - 12.9 fL [facility] NRBC% auto 0.5 % [facility] NRBC Absolute 0.040(H) 0.000 - 0.000 x10(3)/mc L [facility] Blood 05/13/2023 1:15 AM EDT 05/13/2023 1:29 AM EDT Narrative Resulting Agency Comment Spec In Lab Lorri TOBAR HEMATOLOGY ORDERABLE S [facility] [place] [address] * (ABNORMAL) Hepatic Function Panel (05/13/2023 1:15 AM EDT) Protein, Total 5.5(L) 6.1 - 8.0 g/dL [facility] Albumin 3.0(L) 3.2 - 5.2 g/dL [facility] Aspartate Aminotransferase 792(H) 0 - 30 unit/L [facility] Alanine Aminotransferase 903(H) 0 - 30 unit/L [facility] Alkaline Phosphatase 85 35 - 105 unit/L [facility] Bilirubin, Total 0.5 0.2 - 1.3 mg/dL [facility] Bilirubin, Direct 0.3 0.0 - 0.3 mg/dL [facility] Blood 05/13/2023 1:15 AM EDT 05/13/2023 1:29 AM EDT Narrative Resulting Agency Comment Spec In Lab Alirio Hudson MD CHEMISTRY ORDERABLE S [facility] [place] [address] * (ABNORMAL) Basic Metabolic Panel (non-fasting) (05/13/2023 1:15 AM EDT) Glucose 107 65 - 199 mg/dL [facility] Comment:Diabetes: >=200 mg/d L plus symptoms Blood Urea Nitrogen 82(H) 8 - 18 mg/dL [facility] Creatinine 3.15(H) 0.70 - 1.20 mg/dL [facility] Comment:result rechecked-OG Sodium 132(L) 135 - 145 mmol/L [facility] Potassium 3.8 3.5 - 5.0 mmol/L [facility] Comment: Please note: ??Patients with WBC >100,000 may have falsely elevated Potassium levels. ??For accurate Potassium quantification in these patients send serum separator tube (gold top) for subsequent determinations. ??Contact the Clinical Chemistry Laboratory if there are any questions. Chloride 95(L) 98 - 107 mmol/L [facility] Carbon Dioxide 20(L) 22 - 31 mmol/L [facility] Anion Gap 17(H) 5 - 15 mmol/L [facility] Calcium 8.3(L) 8.5 - 10.5 mg/dL [facility] Est Glomerular Filtration Rate 16(L) >=60 mL/min/1. 73 m?? [facility] [...] Lab Alirio Hudson MD CHEMISTRY ORDERABLE S [facility] [place] [address] * (ABNORMAL) BLOOD GAS 2 ARTERIAL (05/12/2023 3:57 PM EDT) pH, Arterial 7.39 7.35 - 7.45 [facility] PCO2, Arterial 33(L) 35 - 45 mmHg [facility] PO2, Arterial 101 85 - 104 mmHg [facility] Bicarbonate, Arterial 19.5(L) 20.0 - 26.0 mmol/L [facility] Base Excess, Arterial -5.5(L) -3.0 - 3.0 mmol/L [facility] Hgb Blood Gas 9.8(L) 11.7 - 15.5 g/dL [facility] Oxyhemoglobin, Arterial 95.2 94.0 - 97.0 % [facility] Carboxyhemoglob in, Arterial 0.2 % [facility] Comment: Nonsmokers: 0.5-1.5% COHB Smokers: Variable, but usually less than 10% Toxic: 20-30% COHB Lethal: Greater than 60% COHB Methemoglobin, Arterial 0.8 <=1.5 % [facility] Na Whole Blood 129(L) 135 - 145 mmol/L [facility] K Whole Blood 3.8 3.5 - 5.0 mmol/L [facility] Comment: Please note: Patients with WBC >100,000 may have falsely elevated Potassium levels. Contact the Clinical Chemistry Laboratory if there are any questions. ICa Whole Blood 1.05(L) 1.15 - 1.33 mmol/L [facility] Comment: Note: ??Total bilirubin higher than 20 mg/dL may lead to falsely low ionized calcium. CL Whole Blood 96(L) 98 - 107 mmol/L [facility] Gluc Whole Bld 178 65 - 199 mg/dL [facility] Comment:Diabetes: >=200 mg/d L plus symptoms. Lactate WB 1.5 0.5 - 2.2 mmol/L [facility] FIO2 Art 40 % [facility] PF Ratio Art 252 [facility] Blood 05/12/2023 3:57 PM EDT 05/12/2023 3:57 PM EDT Alirio Hudson MD POINT OF CARE TEST ORDERABLES Performing Organization Address [facility] Co de Phone Number [facility] [place] [address] * (ABNORMAL) Coox2 (05/12/2023 2:25 PM EDT) pO2, Coox 37 mmHg [facility] Hgb Blood Gas 9.5(L) 11.7 - 15.5 g/dL [facility] Oxyhemoglobin, Coox 59.9 % [facility] Carboxyhemoglo bin, Coox 0.3 % [facility] Comment: Nonsmokers: 0.5-1.5% COHB Smokers: Variable, but usually less than 10% Toxic: 20-30% COHB Lethal: Greater than 60% COHB Methemoglobin, Coox 0.7 <=1.5 % [facility] Source Coox Mixed Venous [facility] Blood 05/12/2023 2:25 PM EDT 05/12/2023 2:25 PM EDT Alirio Hudson MD POINT OF CARE TEST ORDERABLES Performing Organization Address [facility] Co de Phone Number [facility] [place] [address] * (ABNORMAL) BLOOD GAS 2 ARTERIAL (05/12/2023 2:23 PM EDT) pH, Arterial 7.37 7.35 - 7.45 [facility] PCO2, Arterial 36 35 - 45 mmHg [facility] PO2, Arterial 102 85 - 104 mmHg [facility] Bicarbonate, Arterial 20.4 20.0 - 26.0 mmol/L [facility] Base Excess, Arterial -4.8(L) -3.0 - 3.0 mmol/L [facility] Hgb Blood Gas 12.7 11.7 - 15.5 g/dL [facility] Oxyhemoglobin, Arterial 95.4 94.0 - 97.0 % [facility] Carboxyhemoglob in, Arterial 0.3 % [facility] Comment: Nonsmokers: 0.5-1.5% COHB Smokers: Variable, but usually less than 10% Toxic: 20-30% COHB Lethal: Greater than 60% COHB Methemoglobin, Arterial 0.7 <=1.5 % [facility] Na Whole Blood 129(L) 135 - 145 mmol/L [facility] K Whole Blood 3.7 3.5 - 5.0 mmol/L [facility] Comment: Please note: Patients with WBC >100,000 may have falsely elevated Potassium levels. Contact the Clinical Chemistry Laboratory if there are any questions. ICa Whole Blood 1.05(L) 1.15 - 1.33 mmol/L [facility] Comment: Note: ??Total bilirubin higher than 20 mg/dL may lead to falsely low ionized calcium. CL Whole Blood 95(L) 98 - 107 mmol/L [facility] Gluc Whole Bld 168 65 - 199 mg/dL [facility] Comment:Diabetes: >=200 mg/d L plus symptoms. Lactate WB 1.8 0.5 - 2.2 mmol/L [facility] FIO2 Art 40 % [facility] PF Ratio Art 255 [facility] Blood 05/12/2023 2:23 PM EDT 05/12/2023 2:23 PM EDT Alirio Hudson MD POINT OF CARE TEST ORDERABLES Performing Organization Address City/State/[facility] Co de Phone Number [facility] [place] [place] [address] * (ABNORMAL) Troponin (05/12/2023 2:05 PM EDT) Troponin-T, High Sensitivity 1,022(H) <=14 ng/L [facility] Comment: This patient's troponin [...] [facility] Test Catalog Reference: Fourth [place] Definition of Myocardial Infarction. Journal of the [employer] 2018;72:9743-4908 Blood 05/12/2023 2:05 PM EDT 05/12/2023 2:14 PM EDT Narrative Resulting Agency Comment Spec In Lab Alirio Hudson MD CHEMISTRY ORDERABLE S Performing Organization Address [facility] Co de Phone Number [facility] [place] [address] * (ABNORMAL) Hemoglobin (05/12/2023 2:05 PM EDT) Hemoglobin 8.5(L) 11.7 - 15.5 g/dL [facility] Blood 05/12/2023 2:05 PM EDT 05/12/2023 2:14 PM EDT Narrative Resulting Agency Comment Spec In Lab Alirio Hudson MD HEMATOLOGY ORDERABL ES Performing Organization Address [facility] Co de Phone Number [facility] [place] [place] [address] * Potassium (05/12/2023 2:05 PM EDT) Potassium 3.9 3.5 - 5.0 mmol/L [facility] [...] Lab Alirio Hudson MD CHEMISTRY ORDERABLE S [facility] [address] [facility] [address] [place] [address] * (ABNORMAL) BLOOD GAS 2 ARTERIAL (05/12/2023 11:05 AM EDT) pH, Arterial 7.34(L) 7.35 - 7.45 [facility] PCO2, Arterial 42 35 - 45 mmHg [facility] PO2, Arterial 73(L) 85 - 104 mmHg [facility] Bicarbonate, Arterial 22.1 20.0 - 26.0 mmol/L [facility] Base Excess, Arterial -3.6(L) -3.0 - 3.0 mmol/L [facility] Hgb Blood Gas 9.3(L) 11.7 - 15.5 g/dL [facility] Oxyhemoglobin, Arterial 89.3(L) 94.0 - 97.0 % [facility] Carboxyhemoglob in, Arterial 0.2 % [facility] Comment: Nonsmokers: 0.5-1.5% COHB Smokers: Variable, but usually less than 10% Toxic: 20-30% COHB Lethal: Greater than 60% COHB Methemoglobin, Arterial 0.9 <=1.5 % [facility] Na Whole Blood 131(L) 135 - 145 mmol/L [facility] K Whole Blood 3.8 3.5 - 5.0 mmol/L [facility] Comment: Please note: Patients with WBC >100,000 may have falsely elevated Potassium levels. Contact the Clinical Chemistry Laboratory if there are any questions. ICa Whole Blood 1.04(L) 1.15 - 1.33 mmol/L [facility] Comment: Note: ??Total bilirubin higher than 20 mg/dL may lead to falsely low ionized calcium. CL Whole Blood 96(L) 98 - 107 mmol/L [facility] Gluc Whole Bld 152 65 - 199 mg/dL [facility] Comment:Diabetes: >=200 mg/d L plus symptoms. Lactate WB 2.8(H) 0.5 - 2.2 mmol/L [facility] FIO2 Art 40 % [facility] PF Ratio Art 182 [facility] Blood 05/12/2023 11:0 5 AM EDT 05/12/2023 11:05 AM EDT Alirio Hudson MD POINT OF CARE TEST ORDERABLES Performing Organization Address City/State/[facility] Co de Phone Number [facility] [place] [address] * (ABNORMAL) BLOOD GAS 2 ARTERIAL (05/12/2023 10:14 AM EDT) pH, Arterial 7.18(Criti gabrielle) 7.35 - 7.45 [facility] Comment:Noted by supervisor instrument maintenance. PCO2, Arterial 45 35 - 45 mmHg [facility] PO2, Arterial 186(H) 85 - 104 mmHg [facility] Bicarbonate, Arterial 16.2(L) 20.0 - 26.0 mmol/L [facility] Base Excess, Arterial -12.2(L) -3.0 - 3.0 mmol/L [facility] Hgb Blood Gas 10.0(L) 11.7 - 15.5 g/dL [facility] Oxyhemoglobin, Arterial 97.0 94.0 - 97.0 % [facility] Carboxyhemoglob in, Arterial 0.2 % [facility] [...] Whole Blood 3.6 3.5 - 5.0 mmol/L [facility] Comment: Please note: Patients with WBC >100,000 may have falsely elevated Potassium levels. Contact the Clinical Chemistry Laboratory if there are any questions. ICa Whole Blood 1.10(L) 1.15 - 1.33 mmol/L [facility] Comment: Note: ??Total bilirubin higher than 20 mg/dL may lead to falsely low ionized calcium. CL Whole Blood 97(L) 98 - 107 mmol/L [facility] Gluc Whole Bld 161 65 - 199 mg/dL [facility] Comment:Diabetes: >=200 mg/d L plus symptoms. Lactate WB 3.3(H) 0.5 - 2.2 mmol/L [facility] FIO2 Art 100 % [facility] PF Ratio Art 186 [facility] Blood 05/12/2023 10:1 4 AM EDT 05/12/2023 10:14 AM EDT Alirio Hudson MD POINT OF CARE TEST ORDERABLES Performing Organization Address City/[facility]/ZIP Co de Phone Number [facility] [place] [address] * EKG 12 Lead (05/12/2023 10:10 AM EDT) Ventricular rate 116 BPM MUSE SYSTEM Atrial Rate 116 BPM MUSE SYSTEM P-R Interval 158 ms MUSE SYSTEM QRS Duration 114 ms MUSE SYSTEM Q-T Interval 348 ms MUSE SYSTEM QTC Calculated (Bezet) 483 ms MUSE SYSTEM Calculated P [place] 37 degrees MUSE SYSTEM Calculated R [place] 31 degrees MUSE SYSTEM Calculated T [place] -138 degrees MUSE SYSTEM INTERPRETATION Sinus tachycardia [...] interpretation Confirmed by fellow MD Licea Andrew ([id number]) on 05/12/2023 1:04:20 PM Confirmed by MD Villareal Danette ([id number]) on 05/12/2023 9:28:34 PM MUSE SYSTEM 05/12/2023 [...] who have questions please contact the health careers adviser that requested your imaging first. ? Narrative 05/12/2023 10:08 AM EDT EXAMINATION: XR CHEST ONE VIEW CLINICAL HISTORY: Post TAVR TECHNIQUE: 1 view of the chest COMPARISON: Chest radiograph from earlier today FINDINGS: Interval placement of endotracheal tube with tip terminating 2 cm above the shira. Interval placement of enteric tube projecting along the expected course of the esophagus and outside the [id number]. Interval retraction of right IJ approach pulmonary [...] expected course ofthe esophagus and outside the [id number]. Interval retraction of right IJ approach pulmonary [...] patients who have questions please contactthe health careers adviser that requested your imaging first. Alirio Hudson MD IMG DX ORDERABLES * ECHO LMTD W/O CONTRAST W LMTD SPEC DOPP COLOR DOPP (05/12/2023 9:23 AM EDT) Pathologist [facility] EF 20 [employer] SYSTEM Anatomical Region Laterality Modality Cardiac Other 05/12/2023 7:33 AM EDT Narrative 05/12/2023 10:18 AM EDT ? Echocardiogram Report Name: PURNIMA THACKER ?Study Date: 05/12/2023 07:33 AMBP: 96/63 mmHg ? Patient Location: [place] [id number] A : 1955 ? Height: 154 cm ? Account: [id number] Age: 67 yrs ? Weight: 75 kg Gender: Female ?BSA: 1.7 m2 Ordering Physician: RADHA HOLLINS Referring Physician: RADHA HOLLINS Performed By: Dilma Bee RDCS Reason For Study: Guidance for TAVR procedure Exam Location: [facility]. Interpretation Summary PRE TAVR: There is severe [...] mL/m2. POST TAVR: Normal function of the jurbc-gm-nidxh prosthesis. See below for hemodynamic parameters. Slight improvement in left and right ventricular systolic function. LVEF now 20-25%. No pericardial effusion. See report for additional findings. Procedure Limited - 35621. Doppler - 48983. Color Doppler - 58666. Left Ventricle Left ventricle is of normal [...] Date: 307:33 AMBP: 96/63 mmHg Patient Location: [address] : 1955 Height: 154 cm Account: [id number] Age: 67 yrs Weight: 75 kg Gender: Female BSA: 1.7 m2 Ordering Physician: RADHA HOLLINS Referring Physician: RADHA HOLLINS Performed By: Dilma Bee RDCS Reason For Study: Guidance for TAVR procedure Exam Location: [facility]. Interpretation Summary PRE TAVR: There is severe [...] 28mL/m2. POST TAVR: Normal function of the vnevs-gn-wqlmr prosthesis. See belowfor hemodynamic parameters. Slight improvement in left and right ventricularsystolic function. LVEF now 20-25%. No pericardial effusion. See report for additional findings. Procedure Limited - 79121. Doppler - 45871. Color Doppler - 16127. Left Ventricle Left ventricle is of normal [...] Modality Other Narrative 05/12/2023 2:37 PM EDT ?[facility] ? Cardiac Catheterization/Intervention Report ? Patient Name: Purnima Thacker. ? Procedure Date: 05/12/2023 ? A #: [id number] ? Primary Physician: Young, Antelmo N ? Case #: [id number] ? File Name: [id number] ? Catheterization Order Number: [id number] ? [facility] ? Final Report [place], [place] ? Patient Name: ? Purnima M. Kirstie ? ID#: ?[id number] ? : ?1955 ? Procedure Date: ? May 12, 2023 ? Case #: ? [id number] ? Room: ? 6 ? Case Physicians: ?Antelmo Sharma M.D. ?Start: ?08:03 ?Alirio Hudson M.D. ?Admission: ??05/08/2023 ?Lynda Mcgowan M.D. ? Discharge: ??05/22/2023 ?Fellow: ? Rebekah Tejeda M.D. ? Referring Physician: ??Mario Alberto Chin M.D. ? Procedures: ?* Coronary Angiography ?* Left Heart Catheterization ?* Coronary Stent Insertion ?* Transcatheter Aortic Valve Replacement ?* Vascular Closure Device Deployment ?* Temporary Pacemaker Insertion In [employer] Compliance Representative ?* Endotracheal Intubation By Non-Cath Physician ?* [...] guide. ??A premounted 4.00 x 30 mm [place] Sal[place] (MINNA) was ? deployed with a maximum [...] calculated STS risk score was 30.1%. A nrcxf-we-fqyvq ?procedure was performed on the pre-existing bioprosthetic stented ?prosthesis. The priority of the kjuhp-tv-vfhhh procedure was Elective. ?The procedure was performed [...] Lai 3 Ultra RESILIA 23 mm THV (s/l=[id number]) transcatheter ?valve was inserted using standard technique. [...] was it given in the ?clinical lab assistant. ?Recommended anti-platelet/anti-thrombotic regimen: ?Continue aspirin 81 [...] regimen. ? Comments: ?Successful right transfemoral TAVR Zqsyf-ry-Btzfg with a 23 mm Lai 3 ?THV. [...] site angiography, ?temporary pacemaker in clinical lab assistant, intubation-non cath physician, vascular ?closure device, transthoracic echo ??and TAVR. Dr. Alirio Hudson M.D. ?performed the left heart catheterization, access site angiography, ?temporary pacemaker in clinical lab assistant, vascular closure device, transthoracic ?echo , TAVR and CPR during cath. Dr. Lynda Mcgowan M.D. performed the ABG, ?anesthesia and intubation-non cath physician. ? Antelmo Sharma M.D. ? Electronically Signed by: Antelmo Sharma M.D. ? Report Finalized: 05/12/2023 ??14:31 ? Report Last Ammended: 07/01/2023 ??11:30 ? Procedure Note Antelmo Sharma MD - 07/01/2023 [facility] Cardiac Catheterization/Intervention Report Patient Name: Purnima Thacker Procedure Date: 05/12/2023 A #: [id number] Primary Physician: Antelmo Sharma Case #: [id number] File Name: [id number] Catheterization Order Number: [id number] [facility] FinalReport [place], [place] Patient Name: Purnima Thacker ID#:[id number] :1955 Procedure Date: May 12, 2023 Case #: [id number] Room: 6 Case Physicians: Antelmo Sharma M.D. Start: 08:03 Alirio Hudson M.D. Admission:05/08/2023 Lynda Mcgowan M.D. Discharge:05/22/2023 Fellow: Rebekah Tejeda M.D. Referring Physician: Mario Alberto Chin M.D. Procedures: * Coronary Angiography * Left Heart Catheterization * Coronary Stent Insertion * Transcatheter Aortic Valve Replacement * Vascular Closure Device Deployment * Temporary Pacemaker Insertion In Dealer Compliance Representative * Endotracheal Intubation By Non-Cath Physician * [...] A premounted 4.00 x 30 mm Nils Salinas (MINNA) was deployed with a maximum inflation [...] calculated STS risk score was 30.1%. A qkuvm-tu-hjcuq procedure was performed on the pre-existing bioprosthetic stented prosthesis. The priority of the cawvh-xn-yhsoe procedure wasElective. The procedure was performed under Moderate sedation performed byLynda Mcgowan M.D. (see anesthesia report for additional details). Alirio Hudson M.D. participated in the case (see Cardiac Surgery reportfor additional details). The TAVR sheath was a 14 Fr Corona eSheath Introducer and theaccess site was femoral. Rapid ventricular pacing was performed. An Corona Lai 3 Ultra RESILIA 23 mm THV (s/m=[id number])transcatheter valve was inserted using standard technique. The [...] nor was it given inthe clinical lab assistant. Recommended anti-platelet/anti-thrombotic regimen: Continue aspirin 81 [...] this regimen. Comments: Successful right transfemoral TAVR Gygkr-tw-Xtcva with a 23 mmSapien 3 THV. We [...] site angiography, temporary pacemaker in clinical lab assistant, intubation-non cath physician,vascular closure device, transthoracic echo and TAVR. Dr. Alirio Hudson M.D. performed the left heart catheterization, access site angiography, temporary pacemaker in clinical lab assistant, vascular closure device,transthoracic echo , TAVR [...] pH, POC 7.20(Crit ical) 7.35 - 7.45 [facility] Comment:Critical value OK, C C Lab. pCO2, POC 42 35 - 45 mmHg [facility] pO2, POC 260(H) 85 - 104 mmHg [facility] Base Excess, POC -11.0(L) -3.0 - 3.0 mmol/L [facility] Bicarbonate, POC 16.7(L) 20.0 - 26.0 mmol/L [facility] Sodium, POC 129(L) 135 - 145 mmol/L [facility] POC Potassium 3.8 3.5 - 5.0 mmol/L [facility] Ionized Calcium, POC 1.12(L) 1.15 - 1.33 mmol/L [facility] POC Hematocrit 23.0(L) 34.0 - 45.0 % [facility] POC Calc Hgb 7.8(L) 11.2 - 15.7 g/dL [facility] Comment:The calculation of h emoglobin from hematocrit assumes a normal MCHC. POC Bgas Loc CC Lab [facility] Blood 05/12/2023 8:50 AM EDT 05/13/2023 12:00 PM EDT Alirio Hudson MD CHEMISTRY ORDERABLE S [facility] [place] [place] [address] * (ABNORMAL) Point of Care Blood Gas Historical (05/12/2023 8:10 AM EDT) pH, POC 7.27(Crit ical) 7.35 - 7.45 [facility] Comment:Critical value OK, C C Lab. pCO2, POC 37 35 - 45 mmHg [facility] pO2, POC 29(Critic al) 85 - 104 mmHg [facility] Comment:Critical value OK, C C Lab. Base Excess, POC -10.0(L) -3.0 - 3.0 mmol/L [facility] Bicarbonate, POC 16.7(L) 20.0 - 26.0 mmol/L [facility] Sodium, POC 123(L) 135 - 145 mmol/L [facility] POC Potassium 4.0 3.5 - 5.0 mmol/L [facility] Ionized Calcium, POC 1.12(L) 1.15 - 1.33 mmol/L [facility] POC Hematocrit 27.0(L) 34.0 - 45.0 % [facility] POC Calc Hgb 9.2(L) 11.2 - 15.7 g/dL [facility] Comment:The calculation of h emoglobin from hematocrit assumes a normal MCHC. POC Bgas Loc CC Lab [facility] Blood 05/12/2023 8:10 AM EDT 05/13/2023 12:00 PM EDT Alirio Hudson MD CHEMISTRY ORDERABLE S [facility] [place] [address] * (ABNORMAL) Lactate, whole blood, send to lab ([facility]) (05/12/2023 7:00 AM EDT) Lactate WB 2.4(H) 0.5 - 2.2 mmol/L [facility] Blood 05/12/2023 7:00 AM EDT 05/12/2023 7:09 AM EDT Narrative Resulting Agency Comment Spec In Lab Radha Hollins MD CHEMISTRY ORDERABL ES [facility] [place] [address] * (ABNORMAL) Comprehensive metabolic panel (non-fasting) (05/12/2023 6:00 AM EDT) Glucose 167 65 - 199 mg/dL [facility] Comment:Diabetes: >=200 mg/d L plus symptoms Blood Urea Nitrogen 67(H) 8 - 18 mg/dL [facility] Creatinine 2.01(H) 0.70 - 1.20 mg/dL [facility] Sodium 131(L) 135 - 145 mmol/L [facility] Potassium 4.3 3.5 - 5.0 mmol/L [facility] Comment: Please note: ??Patients with WBC >100,000 may have falsely elevated Potassium levels. ??For accurate Potassium quantification in these patients send serum separator tube (gold top) for subsequent determinations. ??Contact the Clinical Chemistry Laboratory if there are any questions. Chloride 97(L) 98 - 107 mmol/L [facility] Carbon Dioxide 14(L) 22 - 31 mmol/L [facility] Anion Gap 20(H) 5 - 15 mmol/L [facility] Calcium 8.6 8.5 - 10.5 mg/dL [facility] Protein, Total 6.3 6.1 - 8.0 g/dL [facility] Albumin 3.5 3.2 - 5.2 g/dL [facility] Aspartate Aminotransferase 1,435(H) 0 - 30 unit/L [facility] Alanine Aminotransferase 1,174(H) 0 - 30 unit/L [facility] Alkaline Phosphatase 100 35 - 105 unit/L [facility] Bilirubin, Total 0.9 0.2 - 1.3 mg/dL [facility] Est Glomerular Filtration Rate 27(L) >=60 mL/min/1. 73 m?? [facility] [...] CHEMISTRY ORDERABL ES Performing Organization Address City/[facility]/[place] [address] * (ABNORMAL) Coox2 (05/12/2023 5:08 AM EDT) pO2, Coox 24 mmHg [facility] Hgb Blood Gas 10.4(L) 11.7 - 15.5 g/dL [facility] Oxyhemoglobin, Coox 30.7 % [facility] Carboxyhemoglo bin, Coox 0.3 % [facility] Comment: Nonsmokers: 0.5-1.5% COHB Smokers: Variable, but usually less than 10% Toxic: 20-30% COHB Lethal: Greater than 60% COHB Methemoglobin, Coox 0.8 <=1.5 % [facility] Source Coox Mixed Venous [facility] Blood 05/12/2023 5:08 AM EDT 05/12/2023 5:08 AM EDT Radha Hollins MD POINT [place] [address] * (ABNORMAL) Coox2 (05/12/2023 3:21 AM EDT) pO2, Coox 25 mmHg [facility] Hgb Blood Gas 10.8(L) 11.7 - 15.5 g/dL [facility] Oxyhemoglobin, Coox 32.7 % [facility] Carboxyhemoglo bin, Coox 0.3 % [facility] Comment: Nonsmokers: 0.5-1.5% COHB Smokers: Variable, but usually less than 10% Toxic: 20-30% COHB Lethal: Greater than 60% COHB Methemoglobin, Coox 0.7 <=1.5 % [facility] Source Coox Mixed Venous [facility] Blood 05/12/2023 3:21 AM EDT 05/12/2023 3:21 AM EDT Radha Hollins MD POINT OF CARE TEST ORDERABLES Performing Organization Address City/State/[facility] Co de Phone Number [facility] [place] [place] [address] * (ABNORMAL) BLOOD GAS 2 ARTERIAL (05/12/2023 3:18 AM EDT) pH, Arterial 7.34(L) 7.35 - 7.45 [facility] PCO2, Arterial 30(L) 35 - 45 mmHg [facility] PO2, Arterial 72(L) 85 - 104 mmHg [facility] Bicarbonate, Arterial 16.0(L) 20.0 - 26.0 mmol/L [facility] Base Excess, Arterial -9.8(L) -3.0 - 3.0 mmol/L [facility] Hgb Blood Gas 11.0(L) 11.7 - 15.5 g/dL [facility] Oxyhemoglobin, Arterial 89.8(L) 94.0 - 97.0 % [facility] Carboxyhemoglob in, Arterial 0.3 % [facility] Comment: Nonsmokers: 0.5-1.5% COHB Smokers: Variable, but usually less than 10% Toxic: 20-30% COHB Lethal: Greater than 60% COHB Methemoglobin, Arterial 0.7 <=1.5 % [facility] Na Whole Blood 131(L) 135 - 145 mmol/L [facility] K Whole Blood 4.2 3.5 - 5.0 mmol/L [facility] Comment: Please note: Patients with WBC >100,000 may have falsely elevated Potassium levels. Contact the Clinical Chemistry Laboratory if there are any questions. ICa Whole Blood 1.12(L) 1.15 - 1.33 mmol/L [facility] Comment: Note: ??Total bilirubin higher than 20 mg/dL may lead to falsely low ionized calcium. CL Whole Blood 100 98 - 107 mmol/L [facility] Gluc Whole Bld 160 65 - 199 mg/dL [facility] Comment:Diabetes: >=200 mg/d L plus symptoms. Lactate WB 2.7(H) 0.5 - 2.2 mmol/L [facility] Flow Art 5.0 LPM [facility] Blood 05/12/2023 3:18 AM EDT 05/12/2023 3:18 AM EDT Radha Hollins MD POINT OF CARE TEST ORDERABLES Performing Organization Address [facility] Co de Phone Number [facility] [place] [address] * (ABNORMAL) Coox2 (05/12/2023 1:14 AM EDT) pO2, Coox 28 mmHg [facility] Hgb Blood Gas 10.9(L) 11.7 - 15.5 g/dL [facility] Oxyhemoglobin, Coox 37.3 % [facility] Carboxyhemoglo bin, Coox 0.3 % [facility] Comment: Nonsmokers: 0.5-1.5% COHB Smokers: Variable, but usually less than 10% Toxic: 20-30% COHB Lethal: Greater than 60% COHB Methemoglobin, Coox 0.5 <=1.5 % [facility] Source Coox Mixed Venous [facility] Blood 05/12/2023 1:14 AM EDT 05/12/2023 1:14 AM EDT Radha Hollins MD POINT OF CARE TEST ORDERABLES Performing Organization Address [facility] Co de Phone Number [facility] [place] [address] * (ABNORMAL) BLOOD GAS 2 ARTERIAL (05/12/2023 1:06 AM EDT) pH, Arterial 7.34(L) 7.35 - 7.45 [facility] PCO2, Arterial 30(L) 35 - 45 mmHg [facility] PO2, Arterial 81(L) 85 - 104 mmHg [facility] Bicarbonate, Arterial 15.7(L) 20.0 - 26.0 mmol/L [facility] Base Excess, Arterial -10.1(L) -3.0 - 3.0 mmol/L [facility] Hgb Blood Gas 11.0(L) 11.7 - 15.5 g/dL [facility] Oxyhemoglobin, Arterial 92.3(L) 94.0 - 97.0 % [facility] Carboxyhemoglob in, Arterial 0.2 % [facility] Comment: Nonsmokers: 0.5-1.5% COHB Smokers: Variable, but usually less than 10% Toxic: 20-30% COHB Lethal: Greater than 60% COHB Methemoglobin, Arterial 0.6 <=1.5 % [facility] Na Whole Blood 131(L) 135 - 145 mmol/L [facility] K Whole Blood 4.2 3.5 - 5.0 mmol/L [facility] Comment: Please note: Patients with WBC >100,000 may have falsely elevated Potassium levels. Contact the Clinical Chemistry Laboratory if there are any questions. ICa Whole Blood 1.13(L) 1.15 - 1.33 mmol/L [facility] Comment: Note: ??Total bilirubin higher than 20 mg/dL may lead to falsely low ionized calcium. CL Whole Blood 99 98 - 107 mmol/L [facility] Gluc Whole Bld 132 65 - 199 mg/dL [facility] Comment:Diabetes: >=200 mg/d L plus symptoms. Lactate WB 2.7(H) 0.5 - 2.2 mmol/L [facility] Flow Art 5.0 LPM [facility] Blood 05/12/2023 1:06 AM EDT 05/12/2023 1:06 AM EDT Radha Hollins MD POINT OF CARE TEST ORDERABLES [facility] [place] [address] * (ABNORMAL) Differential, Automated (05/12/2023 1:05 AM EDT) Neutrophil % 83.3 % [facility] Neutrophil Absolute 7.49(H) 1.70 - 6.10 x10(3)/mc L [facility] Lymph % 7.1 % [facility] Lymphocytes Abs 0.6(L) 0.9 - 3.2 x10(3)/mc L [facility] Monocyte % 8.9 % [facility] Monocyte Abs 0.8 0.3 - 0.9 x10(3)/mc L [facility] Eos % 0.0 % [facility] Eosinophils Abs 0.0 0.0 - 0.4 x10(3)/ L [facility] Basophil % 0.1 % [facility] Baso Absolute 0.0 0.0 - 0.1 x10(3)/ L [facility] Immature Gran % 0.60 % [facility] Comment: Immature granulocytes(IG's)percentage and absolute count will include metamyelocytes, myelocytes, and promyelocytes. Blood smears from CBCs yielding IG's will be scanned manually for concordance. If this scan disagrees with the automated IG or if promyelocytes are noted, a manual differential will be performed. Immature Gran Absolute 0.05(H) 0.00 - 0.04 x10(3)/mc L [facility] Blood 05/12/2023 1:05 AM EDT 05/12/2023 1:15 AM EDT Narrative Resulting Agency Comment Spec In Lab Gianni Fletcher MD HEMATOLOGY ORDERABLE S [facility] [place] [address] * (ABNORMAL) Hemogram (05/12/2023 1:05 AM EDT) White Blood Cell 9.0 4.0 - 9.5 x10(3)/mc L [facility] Red Blood Cell 3.01(L) 4.00 - 5.21 x10(6)/ L [facility] Hemoglobin 9.8(L) 11.7 - 15.5 g/dL [facility] Hematocrit 28.7(L) 35.7 - 45.8 % [facility] Mean Cell Volume 95.3(H) 82.6 - 94.4 fL [facility] Mean Cell Hemoglobin 32.6(H) 27.1 - 32.0 pg [facility] Mean Cell Hemoglobin Concentration 34.1 31.7 - 35.0 g/dL [facility] Platelet 186 145 - 357 x10(3)/mc L [facility] RDW Standard Deviation 43.7 37.0 - 46.0 fL [facility] RDW coefficient of variation 12.7 11.5 - 14.1 % [facility] Mean Platelet Volume 10.3 7.6 - 12.9 fL [facility] NRBC% auto 0.0 % [facility] NRBC Absolute 0.000 0.000 - 0.000 x10(3)/ L [facility] Blood 05/12/2023 1:05 AM EDT 05/12/2023 1:15 AM EDT Narrative Resulting Agency Comment Spec In Lab Gianni Fletcher MD HEMATOLOGY ORDERABLE S Performing Organization Address City/State/[facility] Co de Phone Number [facility] [place] [address] * (ABNORMAL) Comprehensive metabolic panel (non-fasting) (05/12/2023 1:05 AM EDT) Glucose 141 65 - 199 mg/dL [facility] Comment:Diabetes: >=200 mg/d L plus symptoms Blood Urea Nitrogen 63(H) 8 - 18 mg/dL [facility] Creatinine 1.86(H) 0.70 - 1.20 mg/dL [facility] Sodium 131(L) 135 - 145 mmol/L [facility] Potassium 4.4 3.5 - 5.0 mmol/L [facility] Comment: Please note: ??Patients with WBC >100,000 may have falsely elevated Potassium levels. ??For accurate Potassium quantification in these patients send serum separator tube (gold top) for subsequent determinations. ??Contact the Clinical Chemistry Laboratory if there are any questions. Chloride 96(L) 98 - 107 mmol/L [facility] Carbon Dioxide 14(L) 22 - 31 mmol/L [facility] Anion Gap 21(H) 5 - 15 mmol/L [facility] Calcium 9.0 8.5 - 10.5 mg/dL [facility] Protein, Total 6.6 6.1 - 8.0 g/dL [facility] Albumin 3.9 3.2 - 5.2 g/dL [facility] Aspartate Aminotransferase 1,227(H) 0 - 30 unit/L [facility] Alanine Aminotransferase 1,097(H) 0 - 30 unit/L [facility] Alkaline Phosphatase 108(H) 35 - 105 unit/L [facility] Bilirubin, Total 1.0 0.2 - 1.3 mg/dL [facility] Est Glomerular Filtration Rate 29(L) >=60 mL/min/1. 73 m?? [facility] [...] Lab Radha Hollins MD CHEMISTRY ORDERABL ES [facility] [place] [address] * XR Chest One View (05/12/2023 1:00 [...] who have questions please contact the health careers adviser that requested your imaging first. ? Narrative [...] patients who have questions please contactthe health careers adviser that requested your imaging first. Radha Hollins MD IMG DX ORDERABLES * (ABNORMAL) Coox2 (05/12/2023 12:30 AM EDT) pO2, Coox 22 mmHg [facility] Hgb Blood Gas 10.9(L) 11.7 - 15.5 g/dL [facility] Oxyhemoglobin, Coox 25.1 % [facility] Carboxyhemoglo bin, Coox 0.3 % [facility] Comment: Nonsmokers: 0.5-1.5% COHB Smokers: Variable, but usually less than 10% Toxic: 20-30% COHB Lethal: Greater than 60% COHB Methemoglobin, Coox 1.4 <=1.5 % [facility] Source Coox Mixed Venous [facility] Blood 05/12/2023 12:3 0 AM EDT 05/12/2023 12:30 AM EDT Radha Hollins MD POINT [place] [address] * XR Chest One View (05/11/2023 11:45 [...] who have questions please contact the health careers adviser that requested your imaging first. ? Narrative [...] patients who have questions please contactthe health careers adviser that requested your imaging first. Radha Hollins MD IMG DX ORDERABLES * (ABNORMAL) Lactate, whole blood, send to lab ([facility]) (05/11/2023 7:40 PM EDT) [facility] Lactate WB 4.8(Critic al) 0.5 - 2.2 mmol/L [facility] Comment:Called by: NIKI, Read back by: Magdalena Baires, Date/Time:05/11/23 19:54. Blood 05/11/2023 7:40 PM EDT 05/11/2023 7:49 PM EDT Narrative Resulting Agency Comment Spec In Lab Radha Hollins MD CHEMISTRY ORDERABL ES [facility] [place] [address] * Urine culture (05/11/2023 7:22 PM EDT) Pathologist [facility] Urine Culture 50,000-99,000 cfu/ml Normal mucosal herman Susceptibilit y testing not routinely performed for Coagulase Negative Staphylococcu s species and other Gram Positive organisms from urine. [facility] Clean Catch Urine 05/11/2023 7:22 PM EDT 05/11/2023 8:50 PM EDT Narrative Resulting Agency Comment Spec In Lab Brody Kaplan DANDY OPERATOR MICROBIOLOGY - GENE RAL ORDERABLES Performing Organization Address City/[facility]/ZIP Co de Phone Number [facility] [place] [address] * (ABNORMAL) Urinalysis Microscopic Exam (05/11/2023 7:22 PM EDT) RBC, Urine 2 0 - 4 /HPF [facility] WBC, Urine >100(H) 0 - 5 /HPF [facility] Bacteria, Urine Occasional (A) None /HPF [facility] Squamous Epithelial Cells Raw Data, Urine 5(H) <=4 /HPF [facility] Hyaline Casts, Urine 3(H) 0 - 2 /LPF [facility] Clean Catch Urine 05/11/2023 7:22 PM EDT 05/11/2023 7:31 PM EDT Narrative Resulting Agency Comment Spec In Lab Brody Kaplan DANDY OPERATOR URINE ORDERABLES Performing Organization Address [facility] Co de Phone Number [facility] [place] [place] [address] * (ABNORMAL) Urinalysis with reflex Culture (05/11/2023 7:22 PM EDT) Glucose, Urine Dipstick Negative Negative mg/dL [facility] Protein, Urine Dipstick Trace(A) Negative mg/dL [facility] Bilirubin, Urine Dipstick Negative Negative mg/dL [facility] Comment: Clinical correlation required for positive Urine Bilirubin results as false positive may occur with some drugs and drug related products. If a false positive is suspected a serum total bilirubin should be considered if clinically indicated. Urobilinogen, Urine Dipstick Normal Normal mg/dL [facility] pH, Urn (dipstick) 5.0 5.0 - 8.0 [facility] Blood, Urine Dipstick Trace(A) Negative mg/dL [facility] Ketone, Urine Dipstick Negative Negative mg/dL [facility] Nitrite, Urine Dipstick Negative Negative [facility] Leukocytes, Urine Dipstick Moderate(A) Negative [facility] Appearance, Urine Dipstick Cloudy(A) Clear [facility] Specific [place] Urine Automated >=1.030(A) 1.005 - 1.030 [facility] Color, Urine Dipstick Yellow Yellow [facility] Reflex to Culture Yes [facility] Clean Catch Urine 05/11/2023 7:22 PM EDT 05/11/2023 7:31 PM EDT Narrative Resulting Agency Comment Spec In Lab Brody Kaplan APRN URINE ORDERABLES [facility] [place] [place] [address] * (ABNORMAL) pro-Brain Natriuretic Peptide (05/11/2023 7:11 PM EDT) NT-proBNP >35,000(H) <=124 pg/mL [facility] Blood 05/11/2023 7:11 PM EDT 05/11/2023 7:26 PM EDT Narrative Resulting Agency Comment Spec In Lab Radha Hollins MD CHEMISTRY ORDERABL ES Performing Organization Address [facility] Co de Phone Number [facility] [place] [place] [address] * (ABNORMAL) Lactate, whole blood, send to lab ([facility]) (05/11/2023 2:47 PM EDT) Lactate WB 2.9(H) 0.5 - 2.2 mmol/L [facility] Blood 05/11/2023 2:47 PM EDT 05/11/2023 2:53 PM EDT Narrative Resulting Agency Comment Spec In Lab Juan Luis Gonzalez MD CHEMISTRY ORDERABLES Performing Organization Address [facility] Co de Phone Number [facility] [place] [address] * (ABNORMAL) CT Angiogram Abdomen & Pelvis [...] who have questions please contact the health careers adviser that requested your imaging first. ? Narrative [...] who have questions please contact the health careers adviser that requested your imaging first. ? Narrative [...] 610 mm2 Circumference: 88 mm Calcification: Mild Gzqiuzp-cd-qjiwbcud height: Left: 6.2 mm Right: 5.8 mm THORACIC AORTA Description: Normal course and caliber. ??Mild diffuse atherosclerotic changes. No acute aortopathy noted. Cutter Aluminum Sheet dimensions: Aortic root: 27.6 mm Max ascending aorta: 30.5 mm x 27.7 mm Suggested fluoroscopic angulation based on line extending through the nadirs of the three sinuses of Valsalva, set equidistant: ?? [place] ??9 degrees; cranial 7 degrees MITRAL: Mitral [...] 610 mm2 Circumference: 88 mm Calcification: Mild Focswjk-gm-dehlvcda height: Left: 6.2 mm Right: 5.8 mm THORACIC AORTA Description: Normal course and caliber. Mild diffuse atheroscleroticchanges. No acute aortopathy noted. Cutter Aluminum Sheet dimensions: Aortic root: 27.6 mm Max ascending aorta: 30.5 mm x 27.7 mm Suggested fluoroscopic angulation based on line extending through thenadirs of the three sinuses of Valsalva, set equidistant: [place] 9 degrees; cranial 7 degrees MITRAL: Mitral [...] patients who have questions please contactthe health careers adviser that requested your imaging first. Antelmo Sharma MD IM CT ORDERABLES * (ABNORMAL) Lactate, whole blood, send to lab ([facility]) (05/11/2023 9:29 AM EDT) Lactate WB 3.1(H) 0.5 - 2.2 mmol/L [facility] Blood 05/11/2023 9:29 AM EDT 05/11/2023 9:38 AM EDT Narrative Resulting Agency Comment Spec In Lab Juan Luis Gonzalez MD [place] [address] * (ABNORMAL) Differential, Automated (05/11/2023 4:42 AM EDT) Neutrophil % 78.1 % [facility] Neutrophil Absolute 5.46 1.70 - 6.10 x10(3)/mc L [facility] Lymph % 10.6 % [facility] Lymphocytes Abs 0.7(L) 0.9 - 3.2 x10(3)/mc L [facility] Monocyte % 9.6 % [facility] Monocyte Abs 0.7 0.3 - 0.9 x10(3)/mc L [facility] Eos % 0.0 % [facility] Eosinophils Abs 0.0 0.0 - 0.4 x10(3)/mc L [facility] Basophil % 0.4 % [facility] Baso Absolute 0.0 0.0 - 0.1 x10(3)/mc L [facility] Immature Gran % 1.30 % [facility] Comment: Immature granulocytes(IG's)percentage and absolute count will include metamyelocytes, myelocytes, and promyelocytes. Blood smears from CBCs yielding IG's will be scanned manually for concordance. If this scan disagrees with the automated IG or if promyelocytes are noted, a manual differential will be performed. Immature Gran Absolute 0.09(H) 0.00 - 0.04 x10(3)/mc L [facility] Blood 05/11/2023 4:42 AM EDT 05/11/2023 4:49 AM EDT Narrative Resulting Agency Comment Spec In Lab Klaudia Reid MD HEMATOLOGY OR DERABLES Performing Organization Address City/[facility]/ZIP Co de Phone Number [facility] [place] [place] [address] * (ABNORMAL) Hemogram (05/11/2023 4:42 AM EDT) White Blood Cell 7.0 4.0 - 9.5 x10(3)/mc L [facility] Red Blood Cell 3.44(L) 4.00 - 5.21 x10(6)/mc L [facility] Hemoglobin 11.1(L) 11.7 - 15.5 g/dL [facility] Hematocrit 32.7(L) 35.7 - 45.8 % [facility] Mean Cell Volume 95.1(H) 82.6 - 94.4 fL [facility] Mean Cell Hemoglobin 32.3(H) 27.1 - 32.0 pg [facility] Mean Cell Hemoglobin Concentration 33.9 31.7 - 35.0 g/dL [facility] Platelet 165 145 - 357 x10(3)/mc L [facility] RDW Standard Deviation 43.1 37.0 - 46.0 fL [facility] RDW coefficient of variation 12.7 11.5 - 14.1 % [facility] Mean Platelet Volume 10.1 7.6 - 12.9 fL [facility] NRBC% auto 0.0 % [facility] NRBC Absolute 0.000 0.000 - 0.000 x10(3)/mc L [facility] Blood 05/11/2023 4:42 AM EDT 05/11/2023 4:49 AM EDT Narrative Resulting Agency Comment Spec In Lab Klaudia Reid MD HEMATOLOGY OR DERABLES Performing Organization Address City/State/[facility] Co de Phone Number [facility] [place] [address] * Heparin (unfractionated) Level (05/11/2023 4:42 AM EDT) UF Heparin 0.46 IU/mL [facility] Comment: Heparin (anti-Xa) levels should [...] Lab Radha Hollins MD HEMATOLOGY ORDERAB LES [facility] [place] [address] * (ABNORMAL) Comprehensive metabolic panel (non-fasting) (05/11/2023 4:42 AM EDT) Glucose 143 65 - 199 mg/dL [facility] Comment:Diabetes: >=200 mg/d L plus symptoms Blood Urea Nitrogen 42(H) 8 - 18 mg/dL [facility] Creatinine 1.24(H) 0.70 - 1.20 mg/dL [facility] Sodium 134(L) 135 - 145 mmol/L [facility] Potassium 4.6 3.5 - 5.0 mmol/L [facility] Comment: Please note: ??Patients with WBC >100,000 may have falsely elevated Potassium levels. ??For accurate Potassium quantification in these patients send serum separator tube (gold top) for subsequent determinations. ??Contact the Clinical Chemistry Laboratory if there are any questions. Chloride 99 98 - 107 mmol/L [facility] Carbon Dioxide 14(L) 22 - 31 mmol/L [facility] Anion Gap 21(H) 5 - 15 mmol/L [facility] Calcium 9.6 8.5 - 10.5 mg/dL [facility] Protein, Total 7.2 6.1 - 8.0 g/dL [facility] Albumin 3.7 3.2 - 5.2 g/dL [facility] Aspartate Aminotransferase 144(H) 0 - 30 unit/L [facility] Comment:result rechecked-ssc Alanine Aminotransferase 130(H) 0 - 30 unit/L [facility] Comment:result rechecked-ssc Alkaline Phosphatase 72 35 - 105 unit/L [facility] Bilirubin, Total 0.8 0.2 - 1.3 mg/dL [facility] Est Glomerular Filtration Rate 48(L) >=60 mL/min/1. 73 m?? [facility] [...] Lab Radha Hollins MD CHEMISTRY ORDERABL ES [facility] [place] [id number] * EKG 12 Lead (05/10/2023 1:16 PM EDT) Ventricular rate 118 BPM MUSE SYSTEM Atrial Rate 118 BPM MUSE SYSTEM P-R Interval 152 ms MUSE SYSTEM QRS Duration 104 ms MUSE SYSTEM Q-T Interval 316 ms MUSE SYSTEM QTC Calculated (Bezet) 442 ms MUSE SYSTEM Calculated P [place] 29 degrees MUSE SYSTEM Calculated R [place] 18 degrees MUSE SYSTEM Calculated T [place] -173 degrees MUSE SYSTEM INTERPRETATION Sinus tachycardia [...] Anterior leads Confirmed by MD Villareal Danette ([id number]) on 05/10/2023 8:47:46 PM MUSE SYSTEM 05/10/2023 1:16 PM EDT 05/10/2023 8:47 PM EDT Juan Luis Gonzalez MD ECG ORDERABLES MUSE SYSTEM * Lactate, whole blood, send to lab ([facility]) (05/10/2023 11:52 AM EDT) Lactate WB 1.8 0.5 - 2.2 mmol/L [facility] Blood 05/10/2023 11:5 2 AM EDT 05/10/2023 12:13 PM EDT Narrative Resulting Agency Comment Spec In Lab Juan Luis Gonzalez MD CHEMISTRY ORDERABLES Performing Organization Address City/[facility]/ZIP Co de Phone Number [facility] [place] [place] [address] * XR Chest One View (05/10/2023 11:16 [...] who have questions please contact the health careers adviser that requested your imaging first. ? Narrative [...] patients who have questions please contactthe health careers adviser that requested your imaging first. Juan Luis Gonzalez MD IMG DX ORDERABLES * EKG 12 Lead (05/10/2023 7:59 AM EDT) Ventricular rate 115 BPM MUSE SYSTEM Atrial Rate 115 BPM MUSE SYSTEM P-R Interval 142 ms MUSE SYSTEM QRS Duration 102 ms MUSE SYSTEM Q-T Interval 322 ms MUSE SYSTEM QTC Calculated (Bezet) 445 ms MUSE SYSTEM Calculated P [place] 36 degrees MUSE SYSTEM Calculated R [place] 28 degrees MUSE SYSTEM Calculated T [place] -119 degrees MUSE SYSTEM INTERPRETATION Sinus tachycardia with frequent Premature ventricular complexes and Fusion complexes ST & T wave abnormality, consider lateral ischemia Abnormal ECG When compared with ECG of 08-MAY-2023 15:51, No significant change was found I personally reviewed the tracing and edited the fellows interpretation Confirmed by fellow MD Anitha, Carissa ([id number]) on 05/11/2023 6:19:54 AM Confirmed by MD Tram, Chel ([id number]) on 05/11/2023 3:18:56 PM MUSE SYSTEM 05/10/2023 7:59 AM EDT 05/11/2023 3:18 PM EDT Radha Hollins MD ECG ORDERABLES MUSE SYSTEM * (ABNORMAL) Differential, Automated (05/10/2023 2:28 AM EDT) Neutrophil % 77.1 % [facility] Neutrophil Absolute 4.01 1.70 - 6.10 x10(3)/mc L [facility] Lymph % 14.0 % [facility] Lymphocytes Abs 0.7(L) 0.9 - 3.2 x10(3)/mc L [facility] Monocyte % 7.7 % [facility] Monocyte Abs 0.4 0.3 - 0.9 x10(3)/mc L [facility] Eos % 0.4 % [facility] Eosinophils Abs 0.0 0.0 - 0.4 x10(3)/mc L [facility] Basophil % 0.4 % [facility] Baso Absolute 0.0 0.0 - 0.1 x10(3)/mc L [facility] Immature Gran % 0.40 % [facility] Comment: Immature granulocytes(IG's)percentage and absolute count will include metamyelocytes, myelocytes, and promyelocytes. Blood smears from CBCs yielding IG's will be scanned manually for concordance. If this scan disagrees with the automated IG or if promyelocytes are noted, a manual differential will be performed. Immature Gran Absolute 0.02 0.00 - 0.04 x10(3)/mc L [facility] Blood 05/10/2023 2:28 AM EDT 05/10/2023 2:57 AM EDT Narrative Resulting Agency Comment Spec In Lab Klaudia Reid MD HEMATOLOGY OR DERABLES [facility] [place] [address] * (ABNORMAL) Hemogram (05/10/2023 2:28 AM EDT) White Blood Cell 5.2 4.0 - 9.5 x10(3)/mc L [facility] Red Blood Cell 3.11(L) 4.00 - 5.21 x10(6)/mc L [facility] Hemoglobin 10.2(L) 11.7 - 15.5 g/dL [facility] Hematocrit 30.2(L) 35.7 - 45.8 % [facility] Mean Cell Volume 97.1(H) 82.6 - 94.4 fL [facility] Mean Cell Hemoglobin 32.8(H) 27.1 - 32.0 pg [facility] Mean Cell Hemoglobin Concentration 33.8 31.7 - 35.0 g/dL [facility] Platelet 151 145 - 357 x10(3)/mc L [facility] RDW Standard Deviation 44.9 37.0 - 46.0 fL [facility] RDW coefficient of variation 12.8 11.5 - 14.1 % [facility] Mean Platelet Volume 9.8 7.6 - 12.9 fL [facility] NRBC% auto 0.0 % [facility] NRBC Absolute 0.000 0.000 - 0.000 x10(3)/mc L [facility] Blood 05/10/2023 2:28 AM EDT 05/10/2023 2:57 AM EDT Narrative Resulting Agency Comment Spec In Lab Klaudia Reid MD HEMATOLOGY OR DERABLES Performing Organization Address City/[facility]/ZIP Co de Phone Number [facility] [place] [place] [address] * (ABNORMAL) Comprehensive metabolic panel (non-fasting) (05/10/2023 2:28 AM EDT) Glucose 100 65 - 199 mg/dL [facility] Comment:Diabetes: >=200 mg/d L plus symptoms Blood Urea Nitrogen 30(H) 8 - 18 mg/dL [facility] Creatinine 0.90 0.70 - 1.20 mg/dL [facility] Sodium 134(L) 135 - 145 mmol/L [facility] Potassium 4.1 3.5 - 5.0 mmol/L [facility] Comment: Please note: ??Patients with WBC >100,000 may have falsely elevated Potassium levels. ??For accurate Potassium quantification in these patients send serum separator tube (gold top) for subsequent determinations. ??Contact the Clinical Chemistry Laboratory if there are any questions. Chloride 102 98 - 107 mmol/L [facility] Carbon Dioxide 20(L) 22 - 31 mmol/L [facility] Anion Gap 12 5 - 15 mmol/L [facility] Calcium 9.3 8.5 - 10.5 mg/dL [facility] Protein, Total 6.4 6.1 - 8.0 g/dL [facility] Albumin 3.7 3.2 - 5.2 g/dL [facility] Aspartate Aminotransferase 24 0 - 30 unit/L [facility] Alanine Aminotransferase 14 0 - 30 unit/L [facility] Alkaline Phosphatase 70 35 - 105 unit/L [facility] Bilirubin, Total 0.5 0.2 - 1.3 mg/dL [facility] Est Glomerular Filtration Rate 70 >=60 mL/min/1. 73 m?? [facility] [...] CHEMISTRY ORDERABL ES Performing Organization Address City/[facility] [place] [address] * Heparin (unfractionated) Level (05/10/2023 2:28 AM EDT) [facility] UF Heparin 0.37 IU/mL [facility] Comment: Heparin (anti-Xa) levels should be [...] MD HEMATOLOGY ORDERAB LES Performing Organization Address [facility] [place] [address] * (ABNORMAL) Differential, Automated (05/09/2023 4:00 AM EDT) [facility] Neutrophil % 81.7 % [facility] Neutrophil Absolute 5.26 1.70 - 6.10 x10(3)/mc L [facility] Lymph % 10.7 % [facility] Lymphocytes Abs 0.7(L) 0.9 - 3.2 x10(3)/mc L [facility] Monocyte % 6.5 % [facility] Monocyte Abs 0.4 0.3 - 0.9 x10(3)/mc L [facility] Eos % 0.5 % [facility] Eosinophils Abs 0.0 0.0 - 0.4 x10(3)/mc L [facility] Basophil % 0.3 % [facility] Baso Absolute 0.0 0.0 - 0.1 x10(3)/mc L [facility] Immature Gran % 0.30 % [facility] Comment: Immature granulocytes(IG's)percentage and absolute count will include metamyelocytes, myelocytes, and promyelocytes. Blood smears from CBCs yielding IG's will be scanned manually for concordance. If this scan disagrees with the automated IG or if promyelocytes are noted, a manual differential will be performed. Immature Gran Absolute 0.02 0.00 - 0.04 x10(3)/mc L [facility] Blood 05/09/2023 4:00 AM EDT 05/09/2023 4:19 AM EDT Narrative Resulting Agency Comment Spec In Lab Klaudia Reid MD HEMATOLOGY OR DERABLES Performing Organization Address City/State/[facility] Co de Phone Number [facility] [place] [address] * (ABNORMAL) Hemogram (05/09/2023 4:00 AM EDT) White Blood Cell 6.4 4.0 - 9.5 x10(3)/mc L [facility] Red Blood Cell 3.15(L) 4.00 - 5.21 x10(6)/mc L [facility] Hemoglobin 10.2(L) 11.7 - 15.5 g/dL [facility] Hematocrit 30.3(L) 35.7 - 45.8 % [facility] Mean Cell Volume 96.2(H) 82.6 - 94.4 fL [facility] Mean Cell Hemoglobin 32.4(H) 27.1 - 32.0 pg [facility] Mean Cell Hemoglobin Concentration 33.7 31.7 - 35.0 g/dL [facility] Platelet 151 145 - 357 x10(3)/mc L [facility] RDW Standard Deviation 44.7 37.0 - 46.0 fL [facility] RDW coefficient of variation 12.8 11.5 - 14.1 % [facility] Mean Platelet Volume 9.4 7.6 - 12.9 fL [facility] NRBC% auto 0.0 % [facility] NRBC Absolute 0.000 0.000 - 0.000 x10(3)/mc L [facility] Blood 05/09/2023 4:00 AM EDT 05/09/2023 4:19 AM EDT Narrative Resulting Agency Comment Spec In Lab Klaudia Reid MD HEMATOLOGY OR DERABLES Performing Organization Address [facility] Co de Phone Number [facility] [place] [address] * Heparin (unfractionated) Level (05/09/2023 4:00 AM EDT) UF Heparin 0.47 IU/mL [facility] Comment: Heparin (anti-Xa) levels should [...] MD HEMATOLOGY ORDERAB LES Performing Organization Address [facility] Co de Phone Number [facility] [place] [address] * (ABNORMAL) Comprehensive metabolic panel (non-fasting) (05/09/2023 4:00 AM EDT) Glucose 108 65 - 199 mg/dL [facility] Comment:Diabetes: >=200 mg/d L plus symptoms Blood Urea Nitrogen 31(H) 8 - 18 mg/dL [facility] Creatinine 1.03 0.70 - 1.20 mg/dL [facility] Sodium 137 135 - 145 mmol/L [facility] Potassium 4.4 3.5 - 5.0 mmol/L [facility] Comment: Please note: ??Patients with WBC >100,000 may have falsely elevated Potassium levels. ??For accurate Potassium quantification in these patients send serum separator tube (gold top) for subsequent determinations. ??Contact the Clinical Chemistry Laboratory if there are any questions. Chloride 102 98 - 107 mmol/L [facility] Carbon Dioxide 20(L) 22 - 31 mmol/L [facility] Anion Gap 15 5 - 15 mmol/L [facility] Calcium 9.3 8.5 - 10.5 mg/dL [facility] Protein, Total 6.6 6.1 - 8.0 g/dL [facility] Albumin 3.8 3.2 - 5.2 g/dL [facility] Aspartate Aminotransferase 32(H) 0 - 30 unit/L [facility] Alanine Aminotransferase 18 0 - 30 unit/L [facility] Alkaline Phosphatase 78 35 - 105 unit/L [facility] Bilirubin, Total 0.5 0.2 - 1.3 mg/dL [facility] Est Glomerular Filtration Rate 60 >=60 mL/min/1. 73 m?? [facility] [...] Lab Radha Hollins MD CHEMISTRY ORDERABL ES [facility] [place] [place] [address] * (ABNORMAL) pro-Brain Natriuretic Peptide (05/08/2023 4:00 PM EDT) NT-proBNP 25,503(H) <=124 pg/mL [facility] Blood Venous Draw / Unknown 05/08/2023 4:00 PM EDT 05/08/2023 4:25 PM EDT Narrative Resulting Agency Comment Spec In Lab Juan Luis Gonzalez MD CHEMISTRY ORDERABLES Performing Organization Address [facility] Co de Phone Number [facility] [place] [address] * Magnesium (05/08/2023 4:00 PM EDT) Pathologist [facility] Magnesium 0.82 0.69 - 1.07 mmol/L [facility] Blood 05/08/2023 4:00 PM EDT 05/08/2023 4:06 PM EDT Narrative Resulting Agency Comment Spec In Lab Enrique Chua MD CHEMISTRY ORDERABLES Performing Organization Address [facility] Co de Phone Number [facility] [place] [place] [address] * Potassium (05/08/2023 4:00 PM EDT) [facility] Potassium 3.9 3.5 - 5.0 mmol/L [facility] [...] MD CHEMISTRY ORDERABL ES Performing Organization Address [facility] Co de Phone Number [facility] [place] [address] * Heparin (unfractionated) Level (05/08/2023 4:00 PM EDT) Pathologist [facility] UF Heparin 0.43 IU/mL [facility] Comment: Heparin (anti-Xa) levels [...] MD HEMATOLOGY ORDERAB LES Performing Organization Address City/[facility]/ZIP Co de Phone Number [facility] [place] [place] [address] * EKG 12 Lead (05/08/2023 3:51 PM EDT) Pathologist [facility] Ventricular rate 98 BPM MUSE SYSTEM Atrial Rate 98 BPM MUSE SYSTEM P-R Interval 150 ms MUSE SYSTEM QRS Duration 102 ms MUSE SYSTEM Q-T Interval 358 ms MUSE SYSTEM QTC Calculated (Bezet) 457 ms MUSE SYSTEM Calculated P [place] 38 degrees MUSE SYSTEM Calculated R [place] 48 degrees MUSE SYSTEM Calculated T [place] -112 degrees MUSE SYSTEM INTERPRETATION Sinus rhythm with frequent and consecutive Premature ventricular and fusion complexes Septal infarct , age undetermined ST & T wave abnormality, consider anterolateral ischemia Abnormal ECG When compared with ECG of 09-NOV-2022 11:17, T wave inversion now evident in Anterolateral leads Confirmed by MD Harshil, Enrique Bell ([id number]) on 05/10/2023 8:11:46 AM MUSE SYSTEM 05/08/2023 3:51 PM EDT 05/10/2023 8:11 AM EDT Radha Hollins MD ECG ORDERABLES Performing Organization Address City/[facility]/ZIP Co de Phone Number MUSE SYSTEM * (ABNORMAL) Differential, Automated (05/08/2023 11:38 AM EDT) Neutrophil % 71.3 % [facility] Neutrophil Absolute 2.91 1.70 - 6.10 x10(3)/mc L [facility] Lymph % 19.1 % [facility] Lymphocytes Abs 0.8(L) 0.9 - 3.2 x10(3)/mc L [facility] Monocyte % 9.0 % [facility] Monocyte Abs 0.4 0.3 - 0.9 x10(3)/mc L [facility] Eos % 0.2 % [facility] Eosinophils Abs 0.0 0.0 - 0.4 x10(3)/mc L [facility] Basophil % 0.2 % [facility] Baso Absolute 0.0 0.0 - 0.1 x10(3)/mc L [facility] Immature Gran % 0.20 % [facility] Comment: Immature granulocytes(IG's)percentage and absolute count will include metamyelocytes, myelocytes, and promyelocytes. Blood smears from CBCs yielding IG's will be scanned manually for concordance. If this scan disagrees with the automated IG or if promyelocytes are noted, a manual differential will be performed. Immature Gran Absolute 0.01 0.00 - 0.04 x10(3)/ L [facility] Blood 05/08/2023 11:3 8 AM EDT 05/08/2023 11:44 AM EDT Narrative Resulting Agency Comment Spec In Lab Lincoln Sal MD HEMATOLOGY ORDERA BLES [facility] [place] [place] [address] * (ABNORMAL) Hemogram (05/08/2023 11:38 AM EDT) White Blood Cell 4.1 4.0 - 9.5 x10(3)/mc L [facility] Red Blood Cell 3.05(L) 4.00 - 5.21 x10(6)/ L [facility] Hemoglobin 10.2(L) 11.7 - 15.5 g/dL [facility] Hematocrit 29.6(L) 35.7 - 45.8 % [facility] Mean Cell Volume 97.0(H) 82.6 - 94.4 fL [facility] Mean Cell Hemoglobin 33.4(H) 27.1 - 32.0 pg [facility] Mean Cell Hemoglobin Concentration 34.5 31.7 - 35.0 g/dL [facility] Platelet 136(L) 145 - 357 x10(3)/mc L [facility] RDW Standard Deviation 44.3 37.0 - 46.0 fL [facility] RDW coefficient of variation 12.6 11.5 - 14.1 % [facility] Mean Platelet Volume 9.4 7.6 - 12.9 fL [facility] NRBC% auto 0.0 % [facility] NRBC Absolute 0.000 0.000 - 0.000 x10(3)/mc L [facility] Blood 05/08/2023 11:3 8 AM EDT 05/08/2023 11:44 AM EDT Narrative Resulting Agency Comment Spec In Lab Lincoln Sal MD HEMATOLOGY ORDERA BLES Performing Organization Address City/[facility] Co de Phone Number [facility] [place] [place] [address] * TSH (05/08/2023 11:38 AM EDT) Thyroid Stimulating Hormone 1.27 0.27 - 4.20 mcIU/mL [facility] Comment: Reference Interval (mcIU/mL): Females: ??First Trimester: 0.23-3.88 ??Second Trimester: 0.22-3.90 ??Third Trimester: 0.44-4.66 Blood 05/08/2023 11:3 8 AM EDT 05/08/2023 11:44 AM EDT Narrative Resulting Agency Comment Spec In Lab Enrique Chua MD CHEMISTRY ORDERABLES Performing Organization Address City/[facility]/ZIP Co de Phone Number [facility] [place] [place] [address] * (ABNORMAL) Phosphorus (05/08/2023 11:38 AM EDT) Phosphorus 4.7(H) 2.5 - 4.5 mg/dL [facility] Blood 05/08/2023 11:3 8 AM EDT 05/08/2023 11:44 AM EDT Narrative Resulting Agency Comment Spec In Lab Enrique Chua MD CHEMISTRY ORDERABLES Performing Organization Address [facility] Co de Phone Number [facility] [place] [address] * Magnesium (05/08/2023 11:38 AM EDT) Magnesium 0.76 0.69 - 1.07 mmol/L [facility] Blood 05/08/2023 11:3 8 AM EDT 05/08/2023 11:44 AM EDT Narrative Resulting Agency Comment Spec In Lab Enrique Chua MD CHEMISTRY ORDERABLES Performing Organization Address [facility] de Phone Number [facility] [place] [address] * (ABNORMAL) Basic Metabolic Panel (non-fasting) (05/08/2023 11:38 AM EDT) Glucose 97 65 - 199 mg/dL [facility] Comment:Diabetes: >=200 mg/d L plus symptoms Blood Urea Nitrogen 27(H) 8 - 18 mg/dL [facility] Creatinine 1.02 0.70 - 1.20 mg/dL [facility] Sodium 139 135 - 145 mmol/L [facility] Potassium 4.2 3.5 - 5.0 mmol/L [facility] Comment: Please note: ??Patients with WBC >100,000 may have falsely elevated Potassium levels. ??For accurate Potassium quantification in these patients send serum separator tube (gold top) for subsequent determinations. ??Contact the Clinical Chemistry Laboratory if there are any questions. Chloride 105 98 - 107 mmol/L [facility] Carbon Dioxide 20(L) 22 - 31 mmol/L [facility] Anion Gap 14 5 - 15 mmol/L [facility] Calcium 9.4 8.5 - 10.5 mg/dL [facility] Est Glomerular Filtration Rate 60 >=60 mL/min/1. 73 m?? [facility] [...] Chua MD CHEMISTRY ORDERABLES Performing Organization Address City/State/[facility] Co de Phone Number [facility] [place] [place] [address] * ECHO COMPLETE (05/08/2023 11:02 AM EDT) EF 25 [employer] SYSTEM Anatomical Region Laterality Modality Cardiac Other 05/08/2023 10:0 3 AM EDT Narrative 05/08/2023 11:51 AM EDT ? Echocardiogram Report Name: LASHELL THACKEROUMARIZA Mejias ?Study Date: 05/08/2023 10:03 AMBP: 92/64 mmHg ? Patient Location: [facility]^CV29^A : 1955 ? Height: 155 cm ? Account: [id number] Age: 67 yrs ? Weight: 78 kg Gender: Female ?BSA: 1.8 m2 Ordering Physician: ENRIQUE CHUA Referring Physician: MARIO ALBERTO CHIN Performed By: CHUCKIE Canchola Reason For Study: SAVR Stenosis Exam Location: [facility]. Interpretation Summary -Left ventricle is severely dilated [...] worsening stenosis. Mitral regurgitation is similar. Procedure Complete-[id number]. Satisfactory quality. There is normal sinus rhythm. [...] Study Date: 0:03 AMBP: 92/64 mmHg Patient Location:[facility]^CV29^A : 1955 Height: 155 cm Account: [id number] Age: 67 yrs Weight: 78 kg Gender: Female BSA: 1.8 m2 Ordering Physician: ENRIQUE CHUA Referring Physician: MARIO ALBERTO CHIN Performed By: CHUCKIE Canchola Reason For Study: SAVR Stenosis Exam Location: [facility]. Interpretation Summary -Left ventricle is severely dilated [...] suggestsworsening stenosis. Mitral regurgitation is similar. Procedure Complete-[id number]. Satisfactory quality. There is normal sinus rhythm. 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 Mild coronary artery disease by [facility] 11/09/2022 Mixed connective tissue disease [...] fraction Mild coronary artery disease by [facility] 11/09/2022 Stenosis of prosthetic aortic [...] dose on Wed05/12/23 at 1030, Until Discontinued, [place] teeth, Routine Given 05/12/2023 10:04 AM EDT [...] 0052, Until Wed05/12/23 at 0118, Nery Zepeda: mahnaz override NORepinephrine (Levophed) (16 mcg/mL) in dextrose [...] RN) 1619 (Given - Provider: Kia Gallego, RN) [...] 40 mEq, Oral, ONCE, 1 dose, On [facility] 05/22/23 at 0630, 20 mEq tablet may [...] Provider: Favian Mckeon RN - Reason: Patient/family refused)09 (Not Given - Provider: Kia Gallego RN [...] aspirin? Yes 08 (Given - Provider: Gabino Calhoun RN)2053 (Given [...] Routine documented in this encounter Care Teams 4 H Youth Development Specialist Relationship Specialty Start Date End Date Magdalena Acosta MD [address] [place] [address] PCP - General Family Medicine 02/05/23 documented as of this encounter
--- OUTSIDE RECORDS SUMMARY | 2024-06-01 14:15 | XMS_ITS | Encounter Summary ---
Author Organization [facility] Address [facility] [place] [address] Care Team Providers Care Insurance And Benefits Clerk Name Role Phone Magdalena Acosta MD Primary Care Provider [phone] Encounter Details Date Type Department Care Team (Late st Contact Info) Description 04/27/2023 3:00 PM EDT Office [place] [address] Magdalena Peralta MD [facility] [place] [address] Mixed connective tissue disease Social History Tobacco [...] 1:5120 speckled; VIC negative; Myositis panel with [employer] ab 149.1 (positive); Anti U1RNP IgG 119; [...] PM EST Hospital Encounter [place] [address] Markel Borjas MD [facility] [address] [place] [address] 06/05/2024 2:00 PM EST - 06/05/2024 3:00 PM EST Surgery [place] [phone] Markel Borjas MD [facility] [address] [place] [address] (OSC MSURG) BONE MARROW BIOPSY AND ASPIRATION; DIAGNOSTIC (WRVU 1.44) 06/23/2024 2:00 PM EST Office Visit Hematology and Oncology at [place] [phone] Markel Borjas MD [facility] [address] [place] [address] 11/02/2024 12:00 PM EDT Appointment Pulmonology at [address] 11/02/2024 1:00 PM EDT Office Visit Rheumatology at [address] Magdalena Peralta MD [facility] [place] [address] 03/01/2025 4:15 PM EDT Office Visit Dermatology at [address] [place] [address] Marek Bonilla MD [address], [place] [address] Scheduled Procedures Name Priority Associated Diagnoses Date/Ti me (OSC MSURG) BONE MARROW BIOPSY AND ASPIRATION; DIAGNOSTIC (WRVU 1.44) Anemia, in pt with longstanding neutropenia 06/05/2024 2:00 PM EST documented as of this encounter Visit Diagnoses Diagnosis Mixed connective tissue disease Other specified diffuse disease of connective tissue documented in this encounter Care Teams Insurance And Benefits Clerk Relationship Specialty Start Date End Date Magdalena Acosta MD [address] [place] [address] PCP - General Family Medicine 02/05/23 documented as of this encounter
--- OUTSIDE RECORDS SUMMARY | 2024-06-01 14:15 | XMS_ITS | Encounter Summary ---
[place] [address] Care Team Providers Care Final Assembler Name Role Phone Magdalena Acosta MD Primary Care Provider [phone] Encounter Details Date Type Department Care Team [...] PM EST Hospital Encounter [place] [phone] Markel Borjas MD [facility] [address] HEMATOLOGY [place] [address] 06/05/2024 2:00 PM EST - 06/05/2024 3:00 PM EST Surgery [place] [phone] Markel Borjas MD [facility] DR HEMATOLOGY [place] [address] (OSC MSURG) BONE MARROW BIOPSY AND ASPIRATION; DIAGNOSTIC (WRVU 1.44) 06/23/2024 2:00 PM EST Office Visit Hematology and Oncology at [place] [phone] Markel Borjas MD [facility] [address] [place] [address] 11/02/2024 12:00 PM EDT Appointment Pulmonology at [place] [address] 11/02/2024 1:00 PM EDT Office Visit Rheumatology at [place] [address] Magdalena Peralta MD [facility] [place] [address] 03/01/2025 4:15 PM EDT Office Visit Dermatology at [place] [address] [place] [phone] Marek Bonilla MD [address], [address] DERMATOLOGY [place], [place] [phone] Scheduled Procedures Name Priority Associated Diagnoses Date/Ti me (OSC MSURG) BONE MARROW BIOPSY AND ASPIRATION; DIAGNOSTIC (WRVU 1.44) Anemia, in pt with longstanding neutropenia 06/05/2024 2:00 PM EST documented as of this encounter Visit Diagnoses Not on filedocumented in this encounter Care Teams Final Assembler Relationship Specialty Start Date End Date Magdalena Acosta MD [address] [place] [address] PCP - General Family Medicine 02/05/23 documented as of this encounter
--- OUTSIDE RECORDS SUMMARY | 2024-06-01 14:15 | XMS_ITS | Encounter Summary ---
[place] [address] Care Team Providers Care Colorist Name Role Phone Magdalena Acosta MD Primary Care Provider [phone] Encounter Details Date Type Department Care Team [...] PM EST Hospital Encounter [place] [phone] Markel Borjas MD [facility] [address] HEMATOLOGY [place] [address] 06/05/2024 2:00 PM EST - 06/05/2024 3:00 PM EST Surgery [place] [phone] Markel Borjas MD [facility] [address] HEMATOLOGY [place] [address] (OSC MSURG) BONE MARROW BIOPSY AND ASPIRATION; DIAGNOSTIC (WRVU 1.44) 06/23/2024 2:00 PM EST Office Visit Hematology and Oncology at [place] [phone] Markel Borjas MD [facility] [address] [place] [address] 11/02/2024 12:00 PM EDT Appointment Pulmonology at [place] [address] 11/02/2024 1:00 PM EDT Office Visit Rheumatology at [place] [address] Magdalena Peralta MD [facility] [place] [address] 03/01/2025 4:15 PM EDT Office Visit Dermatology at [place] [address] [place] [phone] Marek Bonilla MD [address], [address] DERMATOLOGY [place], [place] [phone] Scheduled Procedures Name Priority Associated Diagnoses Date/Ti me (OSC MSURG) BONE MARROW BIOPSY AND ASPIRATION; DIAGNOSTIC (WRVU 1.44) Anemia, in pt with longstanding neutropenia 06/05/2024 2:00 PM EST documented as of this encounter Visit Diagnoses Not on filedocumented in this encounter Care Teams Colorist Relationship Specialty Start Date End Date Magdalena Acosta MD [address] [place] [address] PCP - General Family Medicine 02/05/23 documented as of this encounter
--- OUTSIDE RECORDS SUMMARY | 2024-06-01 14:15 | XMS_ITS | Encounter Summary ---
[place] [address] Care Team Providers Care Workday Senior Associate Name Role Phone Magdalena Acosta MD Primary Care Provider [phone] Reason for Visit * Auth/Cert (Routine) Specialty Diagnoses / Procedures Referred By Contac t Referred To Contact Diagnoses Symptomatic severe aortic stenosis with low ejection fraction NSTEMI, CHF Enrique Chua MD [facility] [place] [address] [facility] Referral ID Status Reason Start Date Expiration Date Visits Re quested Visits Authorized [id number] 1 1 Encounter Details Date Type Department Care Team (Late st Contact Info) Description 05/12/2023 2:50 PM EDT - 05/12/2023 3:50 PM [place] [address] Antelmo Sharma MD [facility] [address] CARDIAC CATHETERIZATION Social History Tobacco Use Types [...] Patient Age: 67 y.o. Birthdate: 1955 Language: Belarusian Race: White Ethnicity: Not nor Admit Date: 05/08/2023 Discharge Date: 05/22/2023 Attending Physician: Alirio Hudson MD Follow-up Recommendations for Providers: Please continue routine management of cardiovascular risk factors including blood pressure, lipids,glucose, etc. Please note any medication changes. Patient to follow up with PCP, Magdalena Acosta MD, or Primary Industrial Gas Fitter, Avis Mejia MD, in ~ 7-10 days. Patient to follow up with Buyer Tobacco Head, Dr. Antelmo Sharma, in 2 weeks with an EKG, Echo, CBC, and CMP. Patient to follow up with Nephrology, their office to arrange. Wokq-Ncmbkh-jm interval: After initial 30 day follow-up appointment , all TAVR patients will follow-up again in one year with an echo. Inpatient Provider Contact Information: 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 Secondary Diagnoses: Active Hospital Problems Diagnosis S/P TAVR (transcatheter aortic valve replacement) Cardiogenic shock Symptomatic severe aortic stenosis with low ejection fraction Mild coronary artery disease by [facility] 11/09/2022 Heart failure with reduced ejection fraction [...] Tube Placement Right 05/18/2023 Laure Ricks PA [facility] INTERVENTIONL RAD PRG CATH PLMT LEFT HEART CATH & ARTS W/INJ & ANGIO IMG S&I N/A 11/09/2022 CORONARY ANGIOGRAPHY; W [facility],POSSIBLE PCI (WRVU 5.6) performed by Mario Alberto Escobedo MD at [facility] CATH LABS PRG COMBINED RIGHT & LEFT HEART CATH W/INJ L VENTRICULOGRAPHY, IMG S&I N/A 05/12/2023 COMBINED RIGHT & LEFT HEART CATH,INC INJ FOR L VENTRICULOGRAPHY (WRVU 5.99) performed by Antelmo Sharma MD at [facility] CATH LABS PRO AORTOPLAS FOR SUPRAVALV STEN N/A 09/21/2016 @AORTOPLASTY FOR SUPRAVALVULAR STENOSIS (WRVU 29.33) performed by Alirio Hudson MD at [facility] MAIN OR PRO REPLACE AORTIC VALVE (TAVR/FEDERICO)PERC FEMORAL ARTERY APPROACH 05/12/2023 @TRANSCATHETER AORTIC VALVE REPLACEMENT (TAVR), PERCUTANEOUS FEMORAL (WRVU 22.47) performed by Alirio Hudson MD at [facility] CATH LABS PRO REPLACEMENT PROSTHETIC AORTIC VALVE OPEN W CARDIOPULMONARY BYPASS HOMOGRF/STENT N/A 09/21/2016 @REPLACE AORTIC VALVE, OPEN, W\CPB, W\PROSTHETIC VALVE (WRVU 41.32) performed by Alirio Hudson MD at [facility] MAIN OR Prior To Admission [...] Major Procedures/Operations: 05/12/23: Successful right transfemoral TAVR Wpssn-ko-Dddpv with a 23 mm Lai 3 THV. 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 Alirio Hudson [...] if you have questions. Please call your Buyer Tobacco Head's office if you have any discharge or drainage from your procedural sites. Your Buyer Tobacco Head, Dr. Antelmo Sharma and/or the Electron Beam Welder Setter may be reached at . Antibiotic prophylaxis: You will need to take antibiotics prior to many invasive tests and treatments, such as dental cleaning, which should be done every 6 months. Your primary care physician or your dentist can prescribe this medication. Please refer to the card with the [place] [employer] Guidelines for more information. You have been provided with a copy of this card. Please refer to the [place] [employer] Guidelines for more information. Good [...] friends, go to a movie, go to spiritism, etc. Heavy activities: No hunting, skiing, jogging, [...] should resume a low fat, low cholesterol, [place] [employer] Diet Driving: No restrictions. Shower/Bath: You may shower daily. No baths, soaking, or swimming for the first week. Wound care: Wash the sites daily with soap and rinse well, pat dry. Assess for any signs of infection such as increased redness, pain, warmth or drainage. Please call your trust and estates paralegal's office if you have any discharge or drainage from your procedural sites. If there is a lot of swelling, apply mamta wraps during the day and remove at bedtime. Elevate your legs when you are sitting. Home oxygen therapy: N/A Follow up appointments: Please schedule a follow-up appointment with your PCP, Magdalena Acosta MD, or Primary Industrial Gas Fitter in ~ 7-10 days. You have a follow-up appointment with your Buyer Tobacco Head, Dr. Antelmo Sharma, in 2 weeks with an EKG, Echo, and labs prior to your appointment. You will need follow-up with Nephrology, their office will arrange. Qajt-Bdoqrf-yp interval: After initial 30 day follow-up appointment [...] Peralta MD Rheumatology at [facility] Arrive at: [employer] Block Floor Installer Area [phone] 02/11/2024 2:00 PM Marek Bonilla MD Dermatology at [place] Arrive at: [facility] [address] [phone] Future Orders Complete By Expires Type and Screen Future Surgery, [facility] SAME DAY PROGRAM ONLY) [[id number] Custom] 05/11/2023 Process Instructions: This test is intended ONLY for patients with upcoming surgery for testing prior to the day of surgery obtained through the same day program (4V or SDP). For ALL OTHER PATIENTS, order a Type and Screen ([id number]) This order includes the physician order for an ABO Recheck if requested by the Blood Bank. Scheduling Instructions: Comments: Questions: Date of surgery: CBC (with Diff) [[id number] Custom] 06/05/2023 12/05/2023 Process Instructions: INCLUDES: WBC, RBC, Hgb, Hct, Platelets, RBC Indices and Differential Scheduling Instructions: Comments: Questions: Comprehensive metabolic panel (non-fasting) [LAB17 Custom] 06/05/2023 08/20/2023 Process Instructions: INCLUDES: Calcium, T Protein, Albumin, AST, ALT, Alk Phos, T Bili, BUN, Creat, GFR, Glucose, Lytes. Scheduling Instructions: Comments: Questions: Echocardiogram Transthoracic [16591 CPT(R)] 06/05/2023 12/05/2023 Process Instructions: Scheduling Instructions: Questions: Where will study be performed?: [facility] Clinics Does the patient have Congenital Heart Disease?: Does patient require sedation?: GA rationale: EKG 12 Lead [05014 CPT(R)] 06/05/2023 12/05/2023 Process Instructions: Scheduling Instructions: Questions: Which location will this be performed?: [facility] Is a rhythm strip needed?: No [facility] [employer] [EQ161 Custom] As directed Process Instructions: Scheduling Instructions: Questions: Device Needed: WALKER (E0143) Patient Height (cm): 154.9 cm (5' 0.98) Patient Weight: 75.4 kg (166 lb 3.2 oz) Diagnosis: Unsteady gait when walking Referral to Cardiac Rehab [LXF725 Custom] As directed Process Instructions: If no progress note charted, please enter Clinical details in comments. Scheduling Instructions: Questions: My question or request is: s/p TAVR. Cardiac rehab at [facility]. Referral to Home Health [REF34 Custom] As directed Process Instructions: If no progress note charted, please enter Clinical details in comments. Scheduling Instructions: Comments: DOCUMENTATION FOR VNA SERVICES PATIENT'S LOCATION: Purnima Thacker [address] [place] [address] [phone] (home) Senior Materials Scientist's Name: Irineo and brother Raymond In discussion with the attending physician, it is certified that this patient is under his/her careand that MD, or an MASTER ELECTRICIAN, SOLUTIONS ENGINEER, or PA who is working directly with him/her, had a intc-zq-jegq encounter that meets the physician ajby-wy-gegd encounter requirements with this patient on 05/22/2023. [...] for managing ADLs. HOME HEALTH CARE AGENCY: [facility]. [address] [facility] [address] PHONE: [phone] FAX: [phone] Start of care: Ideally 24-48 hours after [...] patient's PCP: Magdalena Acosta MD [address] [facility] [phone] All VNA agencies which cover the area [...] Surgery Date: 05/22/2023 CC: Magdalena Acosta MD Thorne BayMario Alberto maxwell MD [address] [place] [address] [place] [id number] documented in this encounter Discharge Instructions * Patient Instructions* Vinod Juárez PA - 05/22/2023 9:32 AM EDT TAVR Discharge Instructions: Call your doctor if: You have a fever of greater than 101 degrees, shaking chills, if you develop redness or drainage from your procedure sites, or if you have questions. Please call your Buyer Tobacco Head's office if you have any discharge or drainage from your procedural sites. Your Buyer Tobacco Head, Dr. Antelmo Sharma and/or the Electron Beam Welder Setter may be reached at . Antibiotic prophylaxis: You will need to take antibiotics prior to many invasive tests and treatments, such as dental cleaning, which should be done every 6 months. Your primary care physician or your dentist can prescribe this medication. Please refer to the card with the [place] [employer] Guidelines for more information. You have been provided with a copy of this card. Please refer to the [place] Heart [employer] Guidelines for more information. Good [...] friends, go to a movie, go to spiritism, etc. Heavy activities: No hunting, skiing, jogging, [...] should resume a low fat, low cholesterol, [place] [employer] Diet Driving: No restrictions. Shower/Bath: You may shower daily. No baths, soaking, or swimming for the first week. Wound care: Wash the sites daily with soap and rinse well, pat dry. Assess for any signs of infection such as increased redness, pain, warmth or drainage. Please call your trust and estates paralegal's office if you have any discharge or drainage from your procedural sites. If there is a lot of swelling, apply mamta wraps during the day and remove at bedtime. Elevate your legs when you are sitting. Home oxygen therapy: N/A Follow up appointments: Please schedule a follow-up appointment with your PCP, Magdalena Acosta MD, or Primary Industrial Gas Fitter in ~ 7-10 days. You have a follow-up appointment with your Buyer Tobacco Head, Dr. Antelmo Sharma, in 2 weeks with an EKG, Echo, and labs prior to your appointment. You will need follow-up with Nephrology, their office will arrange. Drde-Axiqmu-tu interval: After initial 30 day follow-up appointment [...] ins ( tef) Haven Ba, PT Pager: [phone] Physical Therapy Inpatient Rehabilitation Department * Nico [...] 0600 and on the weekends please page [phone]. * Jory Paniagua - 05/20/2023 3:52 PM [...] vomiting Last Bowel Movement: 05/20/23 Jory Paniagua Bottom Crane Operator * Tong Mike, OT - 05/20/2023 [...] Tube Placement Right 05/18/2023 Laure Ricks PA [facility] INTERVENTIONL RAD PRG CATH PLMT LEFT HEART CATH & ARTS W/INJ & ANGIO IMG S&I N/A 11/09/2022 CORONARY ANGIOGRAPHY; W [facility],POSSIBLE PCI (WRVU 5.6) performed by Mario Alberto Escobedo MD at [facility] CATH LABS PRG COMBINED RIGHT & LEFT HEART CATH W/INJ L VENTRICULOGRAPHY, IMG S&I N/A 05/12/2023 COMBINED RIGHT & LEFT HEART CATH,INC INJ FOR L VENTRICULOGRAPHY (WRVU 5.99) performed by Antelmo Sharma MD at [facility] CATH LABS PRO AORTOPLAS FOR SUPRAVALV STEN N/A 09/21/2016 @AORTOPLASTY FOR SUPRAVALVULAR STENOSIS (WRVU 29.33) performed by Alirio Hudson MD at [facility] MAIN OR PRO REPLACE AORTIC VALVE (TAVR/FEDERICO)PERC FEMORAL ARTERY APPROACH 05/12/2023 @TRANSCATHETER AORTIC VALVE REPLACEMENT (TAVR), PERCUTANEOUS FEMORAL (WRVU 22.47) performed by Alirio Hudson MD at [facility] CATH LABS PRO REPLACEMENT PROSTHETIC AORTIC VALVE OPEN W CARDIOPULMONARY BYPASS HOMOGRF/STENT N/A 09/21/2016 @REPLACE AORTIC VALVE, OPEN, W\CPB, W\PROSTHETIC VALVE (WRVU 41.32) performed by Alirio Hudson MD at [facility] MAIN OR Social History: Patient lives alone. Home Setup: Pt lives on one level with tub shower and three steps to enter. DME: none used TECHNOLOGY SPECIALIST Baseline ADL/Mobility: Independent with ADLs and [...] awareness: WFL Vision & Perception: corrective lenses isobutylene operator chief Communication: WFL Range of motion, strength, coordination: [...] Discharge planning. Total Minutes, Occupational Therapy: 28 (5949-1847) OT Evaluation Code Rationale: Diagnosis & Pertinent Co-Morbidities affecting Plan of Care: see PMHx Occupational Profile & Client History: Brief Expanded Extensive x Assessment of Occupational Performance: 1-3 performance deficits 3-5 performance deficits x 5 + performance deficits Clinical Decision Making: Low Moderate High x Clinical decision making of moderate complexity using standardized patient assessment instrument and measurable assessment of functional outcome. Pager: [phone] TONG MIKE OT 05/20/2023 Occupational Therapy Rehabilitation [...] 0600 and on the weekends please page [phone]. * Rylie Rodriguez MD - 05/19/2023 3:59 [...] and plan. Cynthia Blackburn MD Nephrology Pager: [phone] * Diana Espino - 05/19/2023 1:49 PM EDT Manager Site Encounter Note Patient Name: Purnima Thacker : [id number] MR#: [id number] Admit Date: 05/08/2023 9:14 AM Hospital Day [...] as stated. Total Minutes, Physical Therapy: 38 (8920-4077) Henrik Navarrete PTA Pager: [phone] Physical Therapy Inpatient Rehabilitation Department * Nico [...] 0600 and on the weekends please page [phone]. * Laure Ricks PA - 05/19/2023 7:56 [...] Ricks PA-C Interventional Radiology IR Team Pager [phone] * Consuelo Espinoza RN - 05/18/2023 4:13 PM EDT ANGIO NURSING DATABASE Name: Purnima Thacker Date of : 1955 AGE: 67 y.o. Address: [address] [place] [phone] (home) Mobile: No relevant phone numbers on [...] by [facility] 11/09/2022 I25.10 Heart failure with reduced ejection [...] and plan. Cynthia Blackburn MD Nephrology Pager: [phone] * Magdalena Puri, BEADING INSTALLER - 05/18/2023 10:51 AM EDT Images from the original note were not included. [facility] [place] [address] [address] STRUCTURAL HEART DISEASE CONSULTATION NOTE PRIMARY CARE [...] stenosis. She is now status post TAVR Uhqqg-zz-Cwqeu with a 23 mm Lai 3 THV 05/12/[address] Sharma. Preliminary findings: Successful right transfemoral TAVR Yexcz-iu-Hrrls with a 23 mm Lai 3 THV. [...] by [facility] 11/09/2022 Heart failure with reduced ejection fraction [...] stenosis. She is now status post TAVR Cylaa-ir-Qbyvw with a 23 mm Lai 3 THV 05/12/[address] Sharma. Janet TAVR case notable for coronary LAD protective MINNA. Status post TAVR, the patient was transferred to [facility] for pressor and inotropic [...] Magdalena Puri APRN Structural Heart Team Pager [phone] Team Office Please see addendum by Dr. Sharma for final plan and recommendations Associated attestation - Antelmo Sharma MD - 05/19/2023 10:52 PM EDT I have reviewed Magdalena Puri APRN's above history and I agree with the details as written. The assessment and plan were formulated in discussion with me and I agree with them as documented. Antelmo Sharma MD Pager [phone] * Nico Palacios PA - 05/18/2023 8:13 AM EDT Cardiac Surgery Progress Note Purnmia Thacker is a 67 y.o. female [...] 0600 and on the weekends please page [phone]. * Loli Hernandez, PT - 05/17/2023 5:27 [...] plan as stated. Time IN / OUT: 3470-8248 Total Minutes, Physical Therapy: 54 Billing Code: te-sx2, te-f, angely HERNANDEZ PT Pager: [phone] Physical Therapy Inpatient Rehabilitation Department * Cynthia [...] Well controlled. Cynthia Blackburn MD Nephrology Pager: [phone] * Maggie, Mara, ANURAG - 05/17/2023 8:26 [...] 0600 and on the weekends please page [phone]. * CurtistierneymeccaGuerda C - 05/16/2023 10:44 AM EDT Nutrition Services Note - Low Nutrition Acuity Purnima Thacker is a 67 y.o. female Reason for intervention: hospital day 9 Nutrition Plan: Continue diet order Encourage good PO Lasix and Zofran noted Added special serve: open containers Monitor weight Patient scheduled for a hospital day 9 nutrition evaluation. Bobbin Washer met with pt at bedside. Pt reports that her appetite and PO has much improved since admission. Denies nausea/vomiting or trouble chewing/swallowing. Bobbin Washer provided snack list but pt not interested in adding snacks at this time. Her only concern was that she is worried that she will eat too much which will cause too much pressure in her stomach. Bobbin Washer assured pt and suggested eating smaller but [...] Last Bowel Movement: 05/10/23 Guerda Del Valle Bottom Crane Operator * Vinod Juárez PA - 05/16/2023 [...] 0600 and on the weekends please page [phone]. * Michael Jeffers MD - 05/16/2023 8:11 AM EDT Images from the original note were not included. Hypertension-Nephrology Inpatient Follow-up Purnima Thacker [id number] 1955 ID: 67 y.o. old female seen [...] IRONSAT 12 (L) 05/16/2023 SFOLATE >20.0 07/03/2022 [id number] 07/03/2022 Lab Results Component Value Date [...] Dr. Ayoub. Please contact me at phone: [phone] or pager: [phone] with any questions. Michael Jeffers MD Nephrology [...] -Nephrology consulted, labs and renal US ordered -Verndale removed, ambulated around the unit -bilateral pleural [...] 0600 and on the weekends please page [phone]. * Hortencia Cody MD - 05/15/2023 2:07 [...] not included. Hypertension-Nephrology Inpatient Follow-up Purnima Thacker [id number] 1955 ID: 67 y.o. old female seen [...] HGB 7.8 (L) 05/13/2023 SFOLATE >20.0 07/03/2022 [id number] 07/03/2022 Lab Results Component Value Date [...] Dr. Ayoub. Please contact me at phone: [phone] or pager: [phone] with any questions. Michael Jeffers MD Nephrology [...] last 720 hours. T/L/D Art ETT CVL [place] ASSESSMENT, MANAGEMENT, and DECISION MAKIN y.o. female [...] outlined inthis evaluation. HAVEN BA, PT Pager: [phone] Physical Therapy Inpatient Rehabilitation Department Time IN / OUT: 5305-1183 Total time: Total Minutes, Physical Therapy: 30 [...] 0600 and on the weekends please page [phone]. * Antelmo Sharma MD - 05/14/2023 7:56 AM EDT Images from the original note were not included. [facility] [address] [place], [place] [phone] STRUCTURAL HEART DISEASE CONSULTATION NOTE PRIMARY CARE PROVIDER: Magdalena Acosta MD REFERRING PROVIDER: Mario Alberto Chin REASON FOR CONSULTATION: Bioprosthetic aortic valve stenosis HISTORY OF PRESENT ILLNESS: Patient ID: Purnima hTacker is a 67 [...] stenosis. She is now status post TAVR Xgcfl-wo-Ngvlr with a 23 mm Lai 3 THV 05/12/[address] Sharma. Preliminary findings: Successful right transfemoral TAVR Pwznv-pj-Kmpar with a 23 mm Lai 3 THV. [...] by [facility] 11/09/2022 Heart failure with reduced ejection fraction [...] stenosis. She is now status post TAVR Rocaa-wk-Jttqo with a 23 mm Lai 3 THV 05/12/[address] Sharma. Janet TAVR case notable for coronary LAD protective MINNA. Status post TAVR, the patient was transferred to [facility] for pressor and inotropic [...] Brody Kaplan APRN Structural Heart Team Pager [phone] Team Office Please see addendum by Dr. [...] stable on Milrinone, Maps >65, ST in rgc141's down to NSR with frequent multifocal PVC's. [...] original note were not included. [facility] [place] [address] [place] [address] STRUCTURAL HEART DISEASE PROGRESS NOTE PRIMARY CARE [...] stenosis. She is now status post TAVR Pkxav-av-Qczgu with a 23 mm Lai 3 THV 05/12/[address] Shamra. Preliminary findings: Successful right transfemoral TAVR Soojx-xo-Nvbpw with a 23 mm Lai 3 THV. [...] or perforation. Interval Events: - Transferred to [facility] post- TAVR for pressor/inotropic [...] by [facility] 11/09/2022 Heart failure with reduced ejection fraction [...] stenosis. She is now status post TAVR Pehcp-sz-Uqcku with a 23 mm Lai 3 THV 05/12/[address] Sharma. Janet TAVR case notable for coronary LAD protective MINNA. Status post TAVR, the patient was transferred to [facility] for pressor and inotropic [...] Brody Kaplan APRN Structural Heart Team Pager [phone] Team Office Please see addendum by Dr. [...] DAPT moving forward. Antelmo Sharma MD Pager [phone] * KaBonita stewart PA - 05/13/2023 8:30 AM EDT Cardiac Surgery Progress Note Purnima Thacker is a 67 y.o. 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 PMH of s/p tissue AVR (2017), mixed connective tissue disease HTN, HLD, NICOLAS, diverticulosis, rosacea, essential tremor, and depression. 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 Tubes/Lines/Drains: Verndale, RIJ, A-line, Art, PIV Assessment/Plan: 67 y.o. [...] 0600 and on the weekends please page [phone]. * Onelia Schwartz MD - 05/12/2023 1:44 [...] by [facility] 11/09/2022 Heart failure with reduced ejection fraction [...] FiO2 weaned to 40%. 1105: ABG 7.34/42/73/22 2860-3472: SBT performed and passed on these settings [...] PCP: Magdalena Acosta MD PCP phone number: [phone] Date of Admission: 05/08/2023 ( Hospital Day [...] 0705/12/2331705/12/2310505/11/23193905/11/231446 PHART -- 7.34* 7.34* -- -- QYF7GKH -- 30* 30* -- -- PO2ART -- 72* 81* -- -- NYR3ODN -- 16.0* 15.7* -- -- LACTATEVEN 2.4* 2.7* 2.7* 4.8* 2.9* VBG (Venous Blood Gas) Recent Labs 05/12/23 0700 05/12/2331705/12/2310505/11/23193905/11/231446 LACTATEVEN 2.4* 2.7* 2.7* 4.8* 2.9* Mixed Venous Sat Recent Labs 05/12/23 0508 05/12/23 0321 05/12/23 0114 05/12/23 0030 [id number] 30.7 32.7 37.3 25.1 Objective: Vitals Last [...] have questions please contact the health medicare contact specialist that requested your imaging first. Electronically signed by: ALIX RUVALCABA MD, [facility] ([phone]), at 05/10/2023 1:[address] Cardiac for [...] have questions please contact the health medicare contact specialist that requested your imaging first. Electronically signed by: Cullen Narayanan MD, [facility] ([phone]), at 05/11/2023 4:[address] Angiogram Abdomen [...] have questions please contact the health medicare contact specialist that requested your imaging first. Electronically signed by: Eileen Gomes MD, [facility] ([phone]), at 05/11/2023 2:42 PM XR Chest One [...] have questions please contact the health medicare contact specialist that requested your imaging first. Electronically signed by: Will Rowe MD, [facility] ([phone]), at 05/11/2023 11:57 PM XR Chest One [...] have questions please contact the health medicare contact specialist that requested your imaging first. Electronically signed by: Will Rowe MD, [facility] ([phone]), at 05/12/2023 3:16 AM Assessment & Plan: [...] and inotrope. She is planned for a mrwfl-dx-pjwuk TAVR this morning, which should hopefully improve [...] MD, FACP, FACC Section of Cardiovascular Medicine [facility] Explosive Ordnance Managerbanquet manager [facility] Medicine at [facility] * Noreen Deutsch RN - 05/12/2023 5:21 [...] by [facility] 11/09/2022 Heart failure with reduced ejection fraction [...] 05/11/2023 4:11 PM EDT Reported off to VARNISHER PLASTICOATER and pt transferred over in the bed for higher level of care. * Antelmo Sharma MD - 05/11/2023 9:45 AM EDT Images from the original note were not included. [facility] [place] [id number] STRUCTURAL HEART DISEASE CONSULTATION NOTE PRIMARY CARE [...] who had been referred for possible TAVR jsfgk-am-fyrit evaluation. Her primary symptoms are of dyspnea [...] [facility]. 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 She states that, [...] by [facility] 11/09/2022 Heart failure with reduced ejection fraction [...] blood, send to lab ([facility]) Result Value Ref Range Lactate WB 3.1 (H) 0.5 - 2.2 mmol/L Heparin (unfractionated) Level Result Value Ref Range Heparin UFH Level 0.46 IU/mL Lactate, whole blood, send to lab ([facility]) Result Value Ref Range Lactate WB 1.8 [...] leads Confirmed by MD Harshil, Enrique Bell ([id number]) on 05/10/2023 8:11:46 AM Cardiac Cath 11/09/2022 [...] to decompensating HFrEF, she was transferred to [facility] this afternoon for further management. TAVR CT imaging support for adequate ileofemoral access. Given her acute deterioration today, will planfor RTF TAVR on 05/12/2023. Brody Kaplan APRN Structural Heart Disease Pager [phone] Please see addendum by Dr. Sharma for [...] signed and dated. Antelmo Sharma MD Pager [phone] * Harini Lance MD - 05/11/2023 6:06 AM EDT Images from the original note were not included. Cardiology Progress Note Patient info: Name: Purnima Thacker : 1955 PCP: Magdalena Acosta MD PCP phone number: [phone] Date of Admission: 05/08/2023 ( Hospital Day [...] have questions please contact the health medicare contact specialist that requested your imaging first. Electronically signed by: ALIX RUVALCABA MD, [facility] ([phone]), at 05/10/2023 1:25 PM TTE: 05/08 -Left [...] by [facility] 11/09/2022 Hyperlipidemia, unspecified NICOLAS (obstructive sleep apnea) [...] PCP: Magdalena Acosta MD PCP phone number: [phone] Date of Admission: 05/08/2023 ( Hospital Day [...] 12.5 mg, Oral, DAILY Assessment & Plan: Purniam Thacker is a 67 y.o. female [...] by [facility] 11/09/2022 Hyperlipidemia, unspecified NICOLAS (obstructive sleep apnea) [...] PCP: Magdalena Acosta MD PCP phone number: [phone] Date of Admission: 05/08/2023 ( Hospital Day [...] Gas) No results found for: PHART, PO2ART, BXH1RIT, XPR9YJA Microbiology: Microbiology Results (Last 30 days) No [...] Healthy Menu Choices/Cardiac diet ([facility]-Diet) Lines: Peripheral IV Line - [...] by [facility] 11/09/2022 Hyperlipidemia, unspecified NICOLAS (obstructive sleep apnea) [...] by [facility] 11/09/2022 I25.10 Heart failure with reduced ejection fraction due to heart valve disease I50.20, I38 Cardiogenic shock R57.0 S/P TAVR (transcatheter aortic valve replacement) Z95.2 Past Medical History: Diagnosis Date Anemia Past Surgical History: Procedure Laterality Date PRG CATH PLNE LEFT HEART CATH & ARTS W/INJ & ANGIO IMG S&I N/A 11/09/2022 CORONARY ANGIOGRAPHY; W [facility],POSSIBLE PCI (WRVU 5.6) performed by Mario Alberto Escobedo MD at [facility] CATH LABS PRO AORTOPLAS FOR SUPRAVALV STEN N/A 09/21/2016 @AORTOPLASTY FOR SUPRAVALVULAR STENOSIS (WRVU 29.33) performed by Alirio Hudson MD at [facility] MAIN OR PRO REPLACEMENT PROSTHETIC AORTIC VALVE OPEN W CARDIOPULMONARY BYPASS HOMOGRF/STENT N/A 09/21/2016 @REPLACE AORTIC VALVE, OPEN, W\CPB, W\PROSTHETIC VALVE (WRVU 41.32) performed by Alirio Hudson MD at [facility] MAIN OR Social History and [...] by [facility] 11/09/2022 I25.10 Heart failure with reduced ejection fraction due to heart valve disease I50.20, I38 Cardiogenic shock R57.0 S/P TAVR (transcatheter aortic valve replacement) Z95.2 Past Medical History: Diagnosis Date Anemia Past Surgical History: Procedure Laterality Date PRG CATH [facility] LEFT HEART CATH & ARTS W/INJ & ANGIO IMG S&I N/A 11/09/2022 CORONARY ANGIOGRAPHY; W [facility],POSSIBLE PCI (WRVU 5.6) performed by Mario Alberto Escobedo MD at [facility] CATH LABS PRO AORTOPLAS FOR SUPRAVALV STEN N/A 09/21/2016 @AORTOPLASTY FOR SUPRAVALVULAR STENOSIS (WRVU 29.33) performed by Alirio Hudson MD at [facility] MAIN OR PRO REPLACEMENT PROSTHETIC AORTIC VALVE OPEN W CARDIOPULMONARY BYPASS HOMOGRF/STENT N/A 09/21/2016 @REPLACE AORTIC VALVE, OPEN, W\CPB, W\PROSTHETIC VALVE (WRVU 41.32) performed by Alirio Hudson MD at [facility] MAIN OR Social History and [...] her to present to [facility]. She also endorses some intermittent retrosternal chest pain with exertion.She endorses some dizziness with exertion, but has not gotten faint or passed out. At [facility] she was noted to be afebrile, blood pressure 105/64, HR 120s, satting 95% on 2L NC. Labs from [facility] are below, of note she had elevated [...] the transfer to us. [facility] labs: CBC - Hgb 10.5 CMP - Cr 1.1 BNP 93090 HsTrop 1358 Lactate 1.6 D-dimer 1183 Interval [...] Klaudia Reid MD Internal Medicine PGY-1 Pager [phone], M1-S1 Service Associated attestation - Juan Luis Gonzalez MD - 05/08/2023 10:00 PM EDT Cardiology Attending Addendum Active Hospital Problems Diagnosis Symptomatic severe aortic stenosis with low ejection fraction Heart failure with reduced ejection fraction due to heart valve disease Mild coronary artery disease by [facility] 11/09/2022 Hyperlipidemia, unspecified History of aortic valve [...] PCP: Magdalena Acosta MD PCP phone number: [phone] Date of Admission: 05/08/2023 ( Hospital Day 0 days ) Attending:Enrique Chua MD ID: Purnima Thacker is a 67 y.o. female w/ PMH of s/p bioprosthetic AVR in 2016 with recent concern for severe restenosis, HTN, HLD, mixed connective tissue disease, who presents in transfer from [facility] with worsening BONILLA and weight gain concerning [...] promptedher to present to [facility]. She also endorses some intermittent retrosternal chest pain with exertion. She endorses some dizziness with exertion, but has not gotten faint or passed out. At [facility] she was noted to be afebrile, blood pressure 105/64, HR 120s, satting 95% on 2L NC. Labs from [facility] are below, of note she had elevated [...] the transfer to us. [facility] labs: CBC - Hgb 10.5 CMP - Cr 1.1 BNP 64147 HsTrop 1358 Lactate 1.6 D-dimer 1183 Vasoactive [...] [facility] BONILLA and weight gain concerning for [...] Healthy Menu Choices/Cardiac diet ([facility]-Diet) DVT Prophylaxis: heparin gtt GI [...] to the planned procedure. Hand Hygiene: The advertising inserter did perform hand hygiene prior to [...] Successful arterial line placement. Crispin Timmons MD Electron Beam Welder Setter Associated attestation - Onelia Schwartz MD - [...] (flow was non-pulsatile) and appearance of blood. [place]-Marily catheter was placed and locked at 55 [...] [facility] [place] [address] [place] [address] Cardiac Rehab, [address] [place] [address] [facility] [place] [address] [place] [address] Transportation: family or friend will provide *Brother [...] Type: *No Product type* / Secondary Insurance: [employer] Prescription Coverage: Yes This plan was formulated with input from patient, family (please identify family/friend involved ifapplicable) and team. All are in agreement with plan. Aliza Martino MSN-Ed, RN ACM high lift mule operator Office of Care Management Pager #[phone] * Plan of Care - Favian Mckeon [...] Chaudhary RN - 05/21/2023 4:46 PM EDTSummary: [facility] referral OFFICE OF CARE [...] planning needs. describing our affiliations within the [facility] and educate about their right to choose where referrals are sent. provide a list of Home Health Agencies / Durable Medical Equipment vendors which serve their preferred geographic area. They have requested referrals to: [facility] [address] [place] [address] Ortho Care Located @ [place], [place] Note routed to a Senior Financial Reporting Accountant who will communicate referrals to facilities and provide any required information. Transportation: family or friend will provide *Brother Raymond on Tuesday 05/22 at 1000 Barriers to discharge: Does not have home 22/02 assist available until tomorrow Tuesday 05/22 Plan going forward: Discharge home into the 22/02 home care of brother [facility] and [facility] PT/OT services [...] Attending: All Staff: Staff Role Juanita Almaguer Digital Color Press Operator Laure Ricks PA Physician Window Glass Installer Magdalena Rodriguez mother's helper Nurse Consuelo Espinoza mother's helper Nurse Post-operative diagnosis/Indication: Right pleural effusion [...] Type: *No Product type* / Secondary Insurance: [facility] [place] Last Physical Therapy Recommendation: [...] planning needs. provide the [facility], Office of Care Management letter from the Pmp Certified Project Manager pertaining to rehab referrals. provide a letter describing our affiliations within the [facility] and educate about their right to choose where referrals are sent. provide the CMS Star Quality Rating handout. review the different levels of rehab including SNF, swing, and acute. provide a list of facilities within their preferred geographic area. request that they provide at least three choices for referral. They have requested referrals to: [facility] [address] [place] [address] [facility] ([facility]) [address] [place] [address] (Accepts pts only after exhausting all other local SNF options) [facility] (Swing) ([facility]) [address] [place] [address] PHONE: [phone] FAX: [phone] [facility] (Swing) [facility]) [address] [place] [address] PHONE: [phone] FAX: [phone] Note routed to a Senior Financial Reporting Accountant who will communicate referrals to facilities and [...] 05/17/2023 10:25 AM EDT [facility] CARDIAC REHABILITATION Purnima Thacker was [...] from the original note were not included. [facility] NEPHROLOGY/HYPERTENSION CONSULT NOTE PATIENT: Purnima Thacker [...] in her course. She ultimately underwent a bngtc-bx-oeybp procedure on and tolerated it well (see operative details). [facility] on some pressors [...] 1423 05/12/23 1105 PHART 7.39 7.37 7.34* VOH2IQT 33* 36 42 PO2ART 101 102 73* ZLU4WFP 19.5* 20.4 22.1 LACTATEVEN 1.5 1.8 2.8* [id number] 40 40 40 PFRATIOART2 252 255 182 VBG (Venous Blood Gas) Recent Labs 05/12/23 1557 05/12/23 1423 05/12/23 1105 LACTATEVEN 1.5 1.8 2.8* Mixed Venous Sat Recent Labs 05/12/23 1425 05/12/23 0508 05/12/23 0321 F8QZIJ7 59.9 30.7 32.7 LFT's: Recent Labs 05/14/23 0110 05/13/23 0115 05/12/23 0600 BILITOT 0.4 0.5 0.9 BILIDIR -- 0.3 -- ALBUMIN 3.6 3.0* 3.5 ALKPHOS 86 85 100 ALT 437* 903* 1,174* AST 319* 792* 1,435* No results found for: UPROTCREAT No results found for: TPROTEINPEP, ALBELECT No results found for: MICROALBUR, [id number] No results found for: HA1C Lab Results Component Value Date CALCIUM 8.5 05/14/2023 PHOS 4.7 (H) 05/08/2023 No results found for: 25OHVITD MICROBIOLOGY: ProcedureComponentValueUnitsDate/TimeUrine culture [[id number]]Collected: 05/11/231921Lab Status: Final resultSpecimen: Clean Catch UrineUpdated: [...] consulted for assessment if this patient needs CLINICAL DATA ANALYST. Atthis time, we can likely hold off on CLINICAL DATA ANALYST. Her volume status appears sufficient and her metabolic kanwal angements with mild acidosis is not too profound. Patient does not have significant uremic symptoms. We can hold off for today, but the patient is a high risk candidate for needing CLINICAL DATA ANALYST in future daysespecially if her Cr curve trends the direction it is for the next several days. S/p Jspcr-fa-Yzlgz TF TAVR: Management per cardiology. On milrinone gtt. PLAN: - Please obtain following diagnostics: renal US, urinalysis, urine prot/Cr ratio, urine albumin/Cr ratio, CK, uric acid, serum osmol, daily VBGs - No acute indications for CLINICAL DATA ANALYST/dialysis. We will keep close eye on Cr trend, volume status, and metabolics to ensure patient still does not need CLINICAL DATA ANALYST as she ensues intrinsic renal recovery [...] M.H.Katherine., M.A. PGY-V Nephrology-Hypertension Fellow Page # [phone] [facility] [address] 2nd floor, Wood Strip Block Floor Installer [address] [place] [address] * Care Management - Mario Alberto Olmos [...] for a TAVR at 730. Returned to [facility] at 0945. Was intubated in the wharf labourer due to agitation. Maintained bedrest for 5 [...] Operative Note Patient Name: Purnima Thacker : [id number] MR#: [id number] Case Date: 05/12/2023 Surgeon: Surgeon(s) and Role: [...] procedure Note: Patient Name: Purnima Thacker : [id number] MR#: [id number] Case Date: 05/12/2023 Operators Surgeon: Surgeon(s) and [...] main with 4.0 x [address] [facility] Eluting Stent Perclose x1 + Angio-seal 8 Fr x1, RFA Manual pressure, LFA Manual pressure, LFV Endotracheal intubation (performed by cardiac anesthesia) Preliminary findings: Successful right transfemoral TAVR Duaec-kt-Aprea with a 23 mm Lai 3 THV. [...] MD, M.Sc. Structural Heart Disease Fellow Pager :[phone] Antelmo Sharma MD Pager [phone] * Op Note - Alirio Hudson MD - 05/12/2023 7:37 AM EDT Preop Diagnosis: Severe aortic stenosis, symptomatic. Postop Diagnosis: Same. Procedure: Transfemoral TAVR procedure with 23mm valve. Surgeon: Alirio Hudson M.D. Industrial Gas Fitter: Danny CULP Procedure: The patient was taken to the wharf labourer. The patient had monitored anesthesia care. 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 [facility] [place] [address] STRUCTURAL HEART DISEASE CONSULTATION NOTE PRIMARY CARE [...] who had been referred for possible TAVR vuwud-qq-cyqvo evaluation. Her primary symptoms are of dyspnea [...] [facility]. 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 She states that, [...] by [facility] 11/09/2022 Heart failure with reduced ejection fraction [...] blood, send to lab ([facility]) Result Value Ref Range Lactate WB 1.8 [...] leads Confirmed by MD Harshil, Enrique Bell ([id number]) on 05/10/2023 8:11:46 AM Assessment and Plan: [...] alert Dr. Hudson of her inpatient status, [place] primary cardiac surgeon. Based on recent clinic [...] Antelmo Sharma MD Structural Heart Disease Pager [phone] * Plan of Care - Sarahi Nice RN - 05/10/2023 3:55 AM EDTSumavis: RN Note and Care Plan Sarahi Nice RN assumed care of pt at time of their arrival to room 362 from [facility]. Pt voices shortness of [...] VTE (Venous Thromboembolism) Risk Flowsheets (Taken 05/09/2023 2536) VTE Prevention/Management: anticoagulant therapy Intervention: Prevent Infection [...] listening utilized Taken 05/08/20231999 by Alivia Kauffman, manager environmental health/Support System Care: self-care encouraged support provided Problem: [...] hospital Location: admitted from [facility] Reason for Hospitalization: Critical aortic stenosis, causing [...] receiving care in [place] must abide by [place] law. The hierarchy [...] none Home Address confirmed as: [address] [place] [address] Social & Family Supports: All names listed [...] Type: *No Product type* / Secondary Insurance: [facility] [place] ONLY if patient has Medicare A&B - Does this patient have secondary insurance?: Yes ; Prescription Coverage: Yes Preferred Pharmacy: updated to [facility] Status: Patient is a : No Primary Care Provider confirmed: Magdalena Acosta MD [phone] Patient/Caregiver Goals of Treatment: Potential Needs for [...] assist with transition of care planning. Alie Brdashaw RN, Pager-[phone] * Plan of Care - Emily Lucero RN - 05/08/2023 2:54 PM EDT OUTCOME EVALUATION NOTE: OUTCOME SUMMARY: Pt arrived from [facility]. A&O, no c/o pain or SOB. Heparin [...] PM EST Hospital Encounter [place] [address] Markel Borjas MD [facility] [address] HEMAT[place]Y [place] [address] 06/05/2024 2:00 PM EST - 06/05/2024 3:00 PM EST Surgery [place] [address] Markel Borjas MD [facility] [address] HEMATOLOGY [place] [address] (OSC MSURG) BONE MARROW BIOPSY AND ASPIRATION; DIAGNOSTIC (WRVU 1.44) 06/23/2024 2:00 PM EST Office Visit Hematology [place] [phone] Markel Borjas MD [facility] [address] HEMATOLOGY [place] [address] 11/02/2024 12:00 PM EDT Appointment Pulmonology at [place] [phone] 11/02/2024 1:00 PM EDT Office Visit Rheumatology at [place] [phone] Magdalena Peralta MD [facility] [place] [address] 03/01/2025 4:15 PM EDT Office Visit Dermatology at [address] [place] [id number] Marek Bonilla MD [address] [place] [address], TODD A DERMATOLOGY [place], [place] [id number] Scheduled Procedures Name Priority Associated Diagnoses Date/Ti [...] Heart Cath W/Inj L Ventriculography, Img S&I (22673) 05/12/2023 7:37 AM EDT Aortic valve stenosis, [...] Pathologist [facility] EF 20 HEARTInsideView SYSTEM Anatomical Region Laterality Modality Cardiac Other 07/08/2023 10:3 1 AM EST Narrative 07/08/2023 12:26 PM EST 1 [place] [address] ? Echocardiogram Report Name: PURNIMA THACKER ?Study Date: 07/08/2023 10:31 AMBP: 118/60 mmHg ? Patient Location: : 1955 ? Height: 155 cm ? Account: [id number] Age: 67 yrs ? Weight: 74 kg Gender: Female ?BSA: 1.7 m2 Ordering Physician: ALIRIO HUDSON Referring Physician: VINOD JUÁREZ Performed By: Felicia Norris RDCS Reason For Study: S/P TAVR Exam Location: [facility]. Interpretation Summary Left ventricular systolic [...] no significant change (post-procedure). Procedure Limited - 86375. Doppler - 35662. Color Doppler - 03082. Satisfactory quality. This study is limited because [...] Note Lee Kincaid MD - 07/08/2023 1 [place] [address] Echocardiogram Report Name: PURNIMA THACKER Study Date: 0:31 AMBP: 118/60 mmHg Patient Location: : 1955 Height: 155 cm Account: [id number] Age: 67 yrs Weight: 74 kg Gender: Female BSA: 1.7 m2 Ordering Physician: ALIRIO HUDSON Referring Physician: VINOD JUÁREZ Performed By: Felicia Norris RDCS Reason For Study: S/P TAVR Exam Location: [facility]. Interpretation Summary Left ventricular systolic [...] is nosignificant change (post-procedure). Procedure Limited - 56857. Doppler - 99592. Color Doppler - 08983. Satisfactoryquality. This study is limited because of [...] Lab Alirio Hudson MD CHEMISTRY ORDERABLE S [facility] [place] [address] * (ABNORMAL) Basic Metabolic Panel (non-fasting) (05/22/2023 3:57 AM EDT) Glucose 88 65 - 199 mg/dL [facility] Comment:Diabetes: >=200 mg/d L plus symptoms Blood Urea Nitrogen 21(H) 8 - 18 mg/dL [facility] Creatinine 0.69(L) 0.70 - 1.20 mg/dL [facility] Sodium 136 135 - 145 mmol/L [facility] Potassium 3.6 3.5 - 5.0 mmol/L [facility] Comment: Please note: ??Patients with WBC >100,000 may have falsely elevated Potassium levels. ??For accurate Potassium quantification in these patients send serum separator tube (gold top) for subsequent determinations. ??Contact the Clinical Chemistry Laboratory if there are any questions. Chloride 102 98 - 107 mmol/L [facility] Carbon Dioxide 23 22 - 31 mmol/L [facility] Anion Gap 11 5 - 15 mmol/L [facility] Calcium 8.6 8.5 - 10.5 mg/dL [facility] Est Glomerular Filtration Rate 95 >=60 mL/min/1. 73 m?? [facility] [...] Agency Comment Spec In Lab Mara Serrano BEADING INSTALLER CHEMISTRY ORDERABL ES [facility] [place] [address] * (ABNORMAL) Basic Metabolic Panel (non-fasting) (05/21/2023 5:06 AM EDT) Glucose 87 65 - 199 mg/dL [facility] Comment:Diabetes: >=200 mg/d L plus symptoms Blood Urea Nitrogen 25(H) 8 - 18 mg/dL [facility] Creatinine 0.84 0.70 - 1.20 mg/dL [facility] Sodium 136 135 - 145 mmol/L [facility] Potassium 3.6 3.5 - 5.0 mmol/L [facility] Comment: Please note: ??Patients with WBC >100,000 may have falsely elevated Potassium levels. ??For accurate Potassium quantification in these patients send serum separator tube (gold top) for subsequent determinations. ??Contact the Clinical Chemistry Laboratory if there are any questions. Chloride 102 98 - 107 mmol/L [facility] Carbon Dioxide 26 22 - 31 mmol/L [facility] Anion Gap 8 5 - 15 mmol/L [facility] Calcium 8.9 8.5 - 10.5 mg/dL [facility] Est Glomerular Filtration Rate 76 >=60 mL/min/1. 73 m?? [facility] [...] Agency Comment Spec In Lab Mara Thomasfield BEADING INSTALLER CHEMISTRY ORDERABL ES Performing Organization Address [facility] Co de Phone Number [facility] [place] [address] * Lavender Tube HOLD (05/20/2023 2:52 AM EDT) Lavender Hold Sample in lab. [facility] Blood Venous Draw / Unknown 05/20/2023 2:52 AM EDT 05/20/2023 3:04 AM EDT Mara Thomasfield BEADING INSTALLER HEMATOLOGY ORDERAB LES Performing Organization Address [facility] Co de Phone Number [facility] [place] [address] * (ABNORMAL) Basic Metabolic Panel (non-fasting) (05/20/2023 2:52 AM EDT) Glucose 152 65 - 199 mg/dL [facility] [facility] Comment:Diabetes: >=200 mg/d L plus symptoms Blood Urea Nitrogen 33(H) 8 - 18 mg/dL [facility] Creatinine 0.82 0.70 - 1.20 mg/dL [facility] Sodium 137 135 - 145 mmol/L [facility] Potassium 3.7 3.5 - 5.0 mmol/L [facility] Comment: Please note: ??Patients with WBC >100,000 may have falsely elevated Potassium levels. ??For accurate Potassium quantification in these patients send serum separator tube (gold top) for subsequent determinations. ??Contact the Clinical Chemistry Laboratory if there are any questions. Chloride 99 98 - 107 mmol/L [facility] Carbon Dioxide 22 22 - 31 mmol/L [facility] Anion Gap 16(H) 5 - 15 mmol/L [facility] Calcium 9.0 8.5 - 10.5 mg/dL [facility] Est Glomerular Filtration Rate 78 >=60 mL/min/1. 73 m?? [facility] [...] Agency Comment Spec In Lab Mara Thomasfield BEADING INSTALLER CHEMISTRY ORDERABL ES Performing Organization Address [facility] Co de Phone Number [facility] [place] [address] * (ABNORMAL) Potassium (05/20/2023 2:52 AM EDT) [facility] Signature Potassium 3.4(L) 3.5 - 5.0 mmol/L [facility] [...] Resulting Agency Comment Spec In Lab Mara Klawock BEADING INSTALLER CHEMISTRY ORDERABL ES Performing Organization Address [facility] Co de Phone Number [facility] [place] [address] * XR Chest PA & Lateral (Generic) [...] have questions please contact the health medicare contact specialist that requested your imaging first. ? Electronically signed by: Chyna Johnson MD, [facility] ??([phone]), at 05/19/2023 2:19 PM Narrative 05/19/2023 2:19 [...] who have questions please contactthe health medicare contact specialist that requested your imaging first. Electronically signed by: Chyna Johnson MD, [facility]([phone]), at 05/19/2023 2:19 PM Alirio Hudson MD IMG DX ORDERABLES * (ABNORMAL) Basic Metabolic Panel (non-fasting) (05/19/2023 5:49 AM EDT) Glucose 93 65 - 199 mg/dL [facility] Comment:Diabetes: >=200 mg/d L plus symptoms Blood Urea Nitrogen 45(H) 8 - 18 mg/dL [facility] Creatinine 1.02 0.70 - 1.20 mg/dL [facility] Sodium 138 135 - 145 mmol/L [facility] Potassium 3.9 3.5 - 5.0 mmol/L [facility] Comment: Please note: ??Patients with WBC >100,000 may have falsely elevated Potassium levels. ??For accurate Potassium quantification in these patients send serum separator tube (gold top) for subsequent determinations. ??Contact the Clinical Chemistry Laboratory if there are any questions. Chloride 102 98 - 107 mmol/L [facility] Carbon Dioxide 26 22 - 31 mmol/L [facility] Anion Gap 10 5 - 15 mmol/L [facility] Calcium 9.7 8.5 - 10.5 mg/dL [facility] Est Glomerular Filtration Rate 60 >=60 mL/min/1. 73 m?? [facility] Comment: This patient's [...] Agency Comment Spec In Lab Mara Serrano BEADING INSTALLER CHEMISTRY ORDERABL ES [facility] [place] [address] * IR Chest Tube Placement Right (05/18/2023 [...] Kristopher Salgado MD 05/18/2023 Alirio Hudson MD [facility] ORDERABLES * (ABNORMAL) Basic Metabolic Panel (non-fasting) (05/18/2023 2:54 AM EDT) Glucose 95 65 - 199 mg/dL [facility] Comment:Diabetes: >=200 mg/d L plus symptoms Blood Urea Nitrogen 71(H) 8 - 18 mg/dL [facility] Comment:result rechecked-[facility] Creatinine 1.64(H) 0.70 - 1.20 mg/dL [facility] Comment:result rechecked-J Sodium 137 135 - 145 mmol/L [facility] Potassium 3.7 3.5 - 5.0 mmol/L [facility] Comment: Please note: ??Patients with WBC >100,000 may have falsely elevated Potassium levels. ??For accurate Potassium quantification in these patients send serum separator tube (gold top) for subsequent determinations. ??Contact the Clinical Chemistry Laboratory if there are any questions. Chloride 100 98 - 107 mmol/L [facility] Carbon Dioxide 24 22 - 31 mmol/L [facility] Anion Gap 13 5 - 15 mmol/L [facility] Calcium 9.7 8.5 - 10.5 mg/dL [facility] Est Glomerular Filtration Rate 34(L) >=60 mL/min/1. 73 m?? [facility] [...] Agency Comment Spec In Lab Mara Serrano BEADING INSTALLER CHEMISTRY ORDERABL ES [facility] [place] [address] * XR Chest PA & Lateral (Generic) [...] have questions please contact the health medicare contact specialist that requested your imaging first. ? Electronically signed by: Ghassan Reyes MD, [facility] ??([phone]), at 05/17/2023 11:46 AM Narrative 05/17/2023 11:46 [...] who have questions please contactthe health medicare contact specialist that requested your imaging first. Electronically signed by: Ghassan Reyes MD, [facility]([phone]), at 05/17/2023 11:46 AM Alirio Hudson MD IMG DX ORDERABLES * (ABNORMAL) Comprehensive metabolic panel (non-fasting) (05/17/2023 4:35 AM EDT) Glucose 89 65 - 199 mg/dL [facility] Comment:Diabetes: >=200 mg/d L plus symptoms Blood Urea Nitrogen 97(H) 8 - 18 mg/dL [facility] Creatinine 2.97(H) 0.70 - 1.20 mg/dL [facility] Comment:result rechecked-JSJ Sodium 135 135 - 145 mmol/L [facility] Potassium 4.1 3.5 - 5.0 mmol/L [facility] Comment: Please note: ??Patients with WBC >100,000 may have falsely elevated Potassium levels. ??For accurate Potassium quantification in these patients send serum separator tube (gold top) for subsequent determinations. ??Contact the Clinical Chemistry Laboratory if there are any questions. Chloride 97(L) 98 - 107 mmol/L [facility] Carbon Dioxide 22 22 - 31 mmol/L [facility] Anion Gap 16(H) 5 - 15 mmol/L [facility] Calcium 9.6 8.5 - 10.5 mg/dL [facility] Protein, Total 6.5 6.1 - 8.0 g/dL [facility] Albumin 3.7 3.2 - 5.2 g/dL [facility] Aspartate Aminotransferase 58(H) 0 - 30 unit/L [facility] Alanine Aminotransferase 66(H) 0 - 30 unit/L [facility] Alkaline Phosphatase 86 35 - 105 unit/L [facility] Bilirubin, Total 0.6 0.2 - 1.3 mg/dL [facility] Est Glomerular Filtration Rate 17(L) >=60 mL/min/1. 73 m?? [facility] [...] Lab Alirio Hudson MD CHEMISTRY ORDERABLE S [facility] [place] [address] * Potassium (05/16/2023 11:15 PM EDT) Potassium 3.7 3.5 - 5.0 mmol/L [facility] [...] MD CHEMISTRY ORDERABLE S Performing Organization Address [facility] Co de Phone Number [facility] [place] [address] * Magnesium (05/16/2023 5:22 PM EDT) Magnesium 0.96 0.69 - 1.07 mmol/L [facility] Blood 05/16/2023 5:22 PM EDT 05/16/2023 5:27 PM EDT Narrative Resulting Agency Comment Spec In Lab Alirio Hudson MD CHEMISTRY ORDERABLE S Performing Organization Address [facility] de Phone Number [facility] [place] [address] * (ABNORMAL) Basic Metabolic Panel (non-fasting) (05/16/2023 5:22 PM EDT) Glucose 106 65 - 199 mg/dL [facility] Comment:Diabetes: >=200 mg/d L plus symptoms Blood Urea Nitrogen 103(H) 8 - 18 mg/dL [facility] Creatinine 3.91(H) 0.70 - 1.20 mg/dL [facility] Comment:result rechecked-imm Sodium 132(L) 135 - 145 mmol/L [facility] Potassium 3.6 3.5 - 5.0 mmol/L [facility] Comment: Please note: ??Patients with WBC >100,000 may have falsely elevated Potassium levels. ??For accurate Potassium quantification in these patients send serum separator tube (gold top) for subsequent determinations. ??Contact the Clinical Chemistry Laboratory if there are any questions. Chloride 92(L) 98 - 107 mmol/L [facility] Carbon Dioxide 22 22 - 31 mmol/L [facility] Anion Gap 18(H) 5 - 15 mmol/L [facility] Calcium 9.7 8.5 - 10.5 mg/dL [facility] Est Glomerular Filtration Rate 12(L) >=60 mL/min/1. 73 m?? [facility] [...] MD CHEMISTRY ORDERABLE S Performing Organization Address [facility] Co de Phone Number [facility] [place] [address] * (ABNORMAL) Potassium (05/16/2023 11:43 AM EDT) Potassium 3.3(L) 3.5 - 5.0 mmol/L [facility] [...] MD CHEMISTRY ORDERABLE S Performing Organization Address [facility] Co de Phone Number [facility] [place] [address] * (ABNORMAL) Ferritin (05/16/2023 4:41 AM EDT) Ferritin 1,813(H) 30 - 400 ng/mL [facility] Comment: Pediatric reference ranges not verified at [facility], interpret with caution. Reference ranges for females greater than 50 years of age approach values for men, i.e., 30-400 ng/mL. Blood 05/16/2023 4:41 AM EDT 05/16/2023 4:54 AM EDT Narrative Resulting Agency Comment Spec In Lab Kristopher Ayoub MD CHEMISTRY ORDERABLES Performing Organization Address City/[facility]/ZIP Co de Phone Number [facility] [place] [address] * (ABNORMAL) PTH (05/16/2023 4:41 AM EDT) Parathyroid Hormone 120(H) 15 - 65 pg/mL [facility] Blood 05/16/2023 4:41 AM EDT 05/16/2023 4:54 AM EDT Narrative Resulting Agency Comment Spec In Lab Kristopher Ayoub MD CHEMISTRY ORDERABLES Performing Organization Address City/[facility] Co de Phone Number [facility] [place] [address] * Vitamin D, 25-Hydroxy (05/16/2023 4:41 AM EDT) Vitamin D Total 25 OH 33 21 - 100 ng/mL [facility] Vit D Interp Sufficient [facility] Blood 05/16/2023 4:41 AM EDT 05/16/2023 4:54 AM EDT Narrative Resulting Agency Comment Spec In Lab Kristopher Ayoub MD CHEMISTRY ORDERABLES Performing Organization Address City/[facility] Co de Phone Number [facility] [place] [address] * (ABNORMAL) Blood Gas Venous ([facility]) (05/16/2023 4:22 AM EDT) pH, Venous 7.41 7.32 - 7.42 [facility] PCO2, Venous 32(L) 41 - 51 mmHg [facility] PO2, Venous 73(H) 25 - 40 mmHg [facility] Bicarbonate, Venous 19.6 mmol/L [facility] Base Excess, Venous -5.1 mmol/L [facility] Hgb Blood Gas 9.7(L) 11.7 - 15.5 g/dL [facility] Oxyhemoglobin, Venous 92.8 % [facility] Carboxyhemoglob in, Venous 0.1 % [facility] Comment: Nonsmokers: 0.5-1.5% COHB Smokers: Variable, but usually less than 10% Toxic: 20-30% COHB Lethal: Greater than 60% COHB Methemoglobin, Venous 0.3 <=1.5 % [facility] Na Whole Blood 130(L) 135 - 145 mmol/L [facility] K Whole Blood 3.7 3.5 - 5.0 mmol/L [facility] Comment: Please note: Patients with WBC >100,000 may have falsely elevated Potassium levels. Contact the Clinical Chemistry Laboratory if there are any questions. ICa Whole Blood 1.15 1.15 - 1.33 mmol/L [facility] Comment: Note: ??Total bilirubin higher than 20 mg/dL may lead to falsely low ionized calcium. CL Whole Blood 95(L) 98 - 107 mmol/L [facility] Gluc Whole Bld 82 65 - 199 mg/dL [facility] Comment:Diabetes: >=200 mg/d L plus symptoms Lactate WB 1.1 0.5 - 2.2 mmol/L [facility] Blood Gas Source Venous [facility] Blood Venous Draw / Unknown 05/16/2023 4:22 AM EDT 05/16/2023 4:31 AM EDT Narrative Resulting Agency Comment Spec In Lab Bonita TOBAR CHEMISTRY ORDERABLES [facility] [place] [address] * (ABNORMAL) Differential, Automated (05/16/2023 4:20 AM EDT) Neutrophil % 84.1 % [facility] Neutrophil Absolute 6.22(H) 1.70 - 6.10 x10(3)/mc L [facility] Lymph % 5.8 % [facility] Lymphocytes Abs 0.4(L) 0.9 - 3.2 x10(3)/mc L [facility] Monocyte % 8.8 % [facility] Monocyte Abs 0.6 0.3 - 0.9 x10(3)/mc L [facility] Eos % 0.4 % [facility] Eosinophils Abs 0.0 0.0 - 0.4 x10(3)/ L [facility] Basophil % 0.0 % [facility] Baso Absolute 0.0 0.0 - 0.1 x10(3)/mc L [facility] Immature Gran % 0.90 % [facility] Comment: Immature granulocytes(IG's)percentage and absolute count will include metamyelocytes, myelocytes, and promyelocytes. Blood smears from CBCs yielding IG's will be scanned manually for concordance. If this scan disagrees with the automated IG or if promyelocytes are noted, a manual differential will be performed. Immature Gran Absolute 0.07(H) 0.00 - 0.04 x10(3)/ L [facility] Blood 05/16/2023 4:20 AM EDT 05/16/2023 4:29 AM EDT Narrative Resulting Agency Comment Spec In Lab James Agustin MD HEMATOLOGY ORDER JODIE [facility] [place] [address] * (ABNORMAL) Hemogram (05/16/2023 4:20 AM EDT) White Blood Cell 7.4 4.0 - 9.5 x10(3)/mc L [facility] Red Blood Cell 2.40(L) 4.00 - 5.21 x10(6)/mc L [facility] Hemoglobin 7.8(L) 11.7 - 15.5 g/dL [facility] Hematocrit 22.5(L) 35.7 - 45.8 % [facility] Mean Cell Volume 93.8 82.6 - 94.4 fL [facility] Mean Cell Hemoglobin 32.5(H) 27.1 - 32.0 pg [facility] Mean Cell Hemoglobin Concentration 34.7 31.7 - 35.0 g/dL [facility] Platelet 120(L) 145 - 357 x10(3)/mc L [facility] RDW Standard Deviation 42.9 37.0 - 46.0 fL [facility] RDW coefficient of variation 12.9 11.5 - 14.1 % [facility] Mean Platelet Volume 11.3 7.6 - 12.9 fL [facility] NRBC% auto 0.7 % [facility] NRBC Absolute 0.050(H) 0.000 - 0.000 x10(3)/mc L [facility] Blood 05/16/2023 4:20 AM EDT 05/16/2023 4:29 AM EDT Narrative Resulting Agency Comment Spec In Lab James Agustin MD HEMATOLOGY ORDER JODIE [facility] [place] [address] * (ABNORMAL) Basic Metabolic Panel (non-fasting) (05/16/2023 4:20 AM EDT) Glucose 89 65 - 199 mg/dL [facility] Comment:Diabetes: >=200 mg/d L plus symptoms Blood Urea Nitrogen 108(H) 8 - 18 mg/dL [facility] Creatinine 4.74(H) 0.70 - 1.20 mg/dL [facility] Comment:result rechecked-OLIVA Sodium 132(L) 135 - 145 mmol/L [facility] Potassium 3.9 3.5 - 5.0 mmol/L [facility] Comment: Please note: ??Patients with WBC >100,000 may have falsely elevated Potassium levels. ??For accurate Potassium quantification in these patients send serum separator tube (gold top) for subsequent determinations. ??Contact the Clinical Chemistry Laboratory if there are any questions. Chloride 95(L) 98 - 107 mmol/L [facility] Carbon Dioxide 18(L) 22 - 31 mmol/L [facility] Anion Gap 19(H) 5 - 15 mmol/L [facility] Calcium 9.2 8.5 - 10.5 mg/dL [facility] Est Glomerular Filtration Rate 10(L) >=60 mL/min/1. 73 m?? [facility] [...] MD CHEMISTRY ORDERABLE S Performing Organization Address [facility] Co de Phone Number [facility] [place] [address] * (ABNORMAL) Iron and TIBC (05/16/2023 4:20 AM EDT) Iron 31 30 - 150 mcg/dL [facility] TIBC 259 250 - 450 mcg/dL [facility] Iron Saturation 12(L) 20 - 50 % [facility] Blood 05/16/2023 4:20 AM EDT 05/16/2023 4:29 AM EDT Narrative Resulting Agency Comment Spec In Lab Kristopher Ayoub MD CHEMISTRY ORDERABLES [facility] [place] [address] * (ABNORMAL) Basic Metabolic Panel (non-fasting) (05/15/2023 12:50 AM EDT) Glucose 101 65 - 199 mg/dL [facility] Comment:Diabetes: >=200 mg/d L plus symptoms Blood Urea Nitrogen 109(H) 8 - 18 mg/dL [facility] Creatinine 5.62(H) 0.70 - 1.20 mg/dL [facility] Comment:result rechecked-KS Sodium 131(L) 135 - 145 mmol/L [facility] Comment:result rechecked-KS Potassium 3.7 3.5 - 5.0 mmol/L [facility] Comment: result rechecked-KS Please note: ??Patients with WBC >100,000 may have falsely elevated Potassium levels. ??For accurate Potassium quantification in these patients send serum separator tube (gold top) for subsequent determinations. ??Contact the Clinical Chemistry Laboratory if there are any questions. Chloride 92(L) 98 - 107 mmol/L [facility] Comment:result rechecked-[place] Carbon Dioxide 18(L) 22 - 31 mmol/L [facility] Comment:result rechecked-[place] Anion Gap 21(H) 5 - 15 mmol/L [facility] Calcium 8.9 8.5 - 10.5 mg/dL [facility] Est Glomerular Filtration Rate 8(L) >=60 mL/min/1. 73 m?? [facility] [...] Lab Alirio Hudson MD CHEMISTRY ORDERABLE S [facility] [place] [address] * (ABNORMAL) Hemogram (05/15/2023 12:50 AM EDT) White Blood Cell 9.1 4.0 - 9.5 x10(3)/mc L [facility] Red Blood Cell 2.19(L) 4.00 - 5.21 x10(6)/mc L [facility] Hemoglobin 7.2(L) 11.7 - 15.5 g/dL [facility] Hematocrit 20.6(L) 35.7 - 45.8 % [facility] Mean Cell Volume 94.1 82.6 - 94.4 fL [facility] Mean Cell Hemoglobin 32.9(H) 27.1 - 32.0 pg [facility] Mean Cell Hemoglobin Concentration 35.0 31.7 - 35.0 g/dL [facility] Platelet 109(L) 145 - 357 x10(3)/mc L [facility] RDW Standard Deviation 43.6 37.0 - 46.0 fL [facility] RDW coefficient of variation 12.9 11.5 - 14.1 % [facility] Mean Platelet Volume 10.4 7.6 - 12.9 fL [facility] NRBC% auto 2.1 % [facility] NRBC Absolute 0.190(H) 0.000 - 0.000 x10(3)/mc L [facility] Blood 05/15/2023 12:5 0 AM EDT 05/15/2023 12:52 AM EDT Narrative Resulting Agency Comment Spec In Lab Alirio Hudson MD HEMATOLOGY ORDERABL ES [facility] [place] [address] * (ABNORMAL) BLOOD GAS 2 VENOUS (05/15/2023 12:49 AM EDT) pH, Venous 7.33 7.32 - 7.42 [facility] PCO2, Venous 37(L) 41 - 51 mmHg [facility] PO2, Venous 34 25 - 40 mmHg [facility] Bicarbonate, Venous 19.1 mmol/L [facility] Base Excess, Venous -6.8 mmol/L [facility] Hgb Blood Gas 10.8(L) 11.7 - 15.5 g/dL [facility] Oxyhemoglobin, Venous 58.1 % [facility] Carboxyhemoglob in, Venous 0.3 % [facility] Comment: Nonsmokers: 0.5-1.5% COHB Smokers: Variable, but usually less than 10% Toxic: 20-30% COHB Lethal: Greater than 60% COHB Methemoglobin, Venous 0.6 <=1.5 % [facility] Na Whole Blood 136 135 - 145 mmol/L [facility] K Whole Blood 3.7 3.5 - 5.0 mmol/L [facility] Comment: Please note: Patients with WBC >100,000 may have falsely elevated Potassium levels. Contact the Clinical Chemistry Laboratory if there are any questions. ICa Whole Blood 1.12(L) 1.15 - 1.33 mmol/L [facility] Comment: Note: ??Total bilirubin higher than 20 mg/dL may lead to falsely low ionized calcium. CL Whole Blood 95(L) 98 - 107 mmol/L [facility] Gluc Whole Bld 101 65 - 199 mg/dL [facility] Comment:Diabetes: >=200 mg/d L plus symptoms Lactate WB 1.3 0.5 - 2.2 mmol/L [facility] Flow, Mike 1.0 LPM [facility] Blood Gas Source Venous [facility] Blood 05/15/2023 12:4 9 AM EDT 05/15/2023 12:49 AM EDT Alirio Hudson MD POINT OF CARE TEST ORDERABLES Performing Organization Address City/State/[facility] Co de Phone Number [facility] [place] [address] * US Retroperitoneal Complete (05/14/2023 3:53 PM [...] Robledo MD, [facility] ([phone]), at 05/14/2023 4:32 PM Thank you for letting us participate in the care of this patient. If you are a health care provider and have any questions regarding this report, please contact the number above. For patients who have questions, please contact the health medicare contact specialist that requested your imaging first. ? Hayden Robledo, Staff Physician Electronically Signed Final Report ?? 05/14/2023 04:39 pm Narrative 05/14/2023 4:39 PM EDT Renal ? (Signed Final 05/14/2023 04:39 pm) PATIENT INFO: ID #: ? [id number] ?: ??[birth year] (67 yrs)(F) Name: ? PURNIMA THACKER ?Visit Date: 05/14/2023 03:44 pm PERFORMED BY: Attending: ?Meena CULP, Hayden Stafford Resident: ? Anand Camejo MD Performed By: ? Consuelo Tello RDMS Referred By: ?ALIRIO Powell BECCA Location: ? [place] SERVICE(S) PROVIDED: URETRO - Retroperitoneal Complete - [id number] ? [id number] INDICATIONS: EVANS COMPARISON: CT: Abdomen/Pelvis 05/11/23 RIGHT [...] 05/14/2023 04:39 pm) PATIENT INFO: ID #: [id number] : 55 (67 yrs)(F) Name: PURNIMA THACKER Visit Date: 05/14/2023 03:44 pm PERFORMED BY: Attending: Hayden Robledo MD Resident: Anand Camejo MD Performed By: Consuelo Tello RDMS Referred By: ALIRIO HUDSON Location: [place] SERVICE(S) PROVIDED: URETRO - Retroperitoneal Complete - [id number] INDICATIONS: EVANS COMPARISON: CT: Abdomen/Pelvis 05/11/23 RIGHT [...] have questions, please contact the health medicare contact specialist that requested your imaging first. Hayden Robledo, Staff Physician Electronically Signed Final Report 05/14/2023 04:39 pm Alirio Hudson MD IMG US GEN ORDERABL ES * CK (05/14/2023 3:17 PM EDT) Creatine Kinase 123 0 - 160 unit/L [facility] Blood 05/14/2023 3:17 PM EDT 05/14/2023 3:31 PM EDT Narrative Resulting Agency Comment Spec In Lab Alirio Hudson MD CHEMISTRY ORDERABLE S [facility] [place] [address] * (ABNORMAL) Uric acid (05/14/2023 3:17 PM EDT) Uric Acid 14.9(H) 2.5 - 6.5 mg/dL [facility] Blood 05/14/2023 3:17 PM EDT 05/14/2023 3:31 PM EDT Narrative Resulting Agency Comment Spec In Lab Alirio Hudson MD CHEMISTRY ORDERABLE S [facility] [place] [address] * (ABNORMAL) Osmolality (05/14/2023 3:17 PM EDT) Osmolality 311(H) 275 - 295 mOsm/kg [facility] Blood 05/14/2023 3:17 PM EDT 05/14/2023 3:31 PM EDT Narrative Resulting Agency Comment Spec In Lab Alirio Hudson MD CHEMISTRY ORDERABLE S [facility] [place] [address] * (ABNORMAL) Differential, Automated (05/14/2023 1:10 AM EDT) Pathologist [facility] Neutrophil % 87.2 % [facility] Neutrophil Absolute 9.74(H) 1.70 - 6.10 x10(3)/ L [facility] Lymph % 3.9 % [facility] Lymphocytes Abs 0.4(L) 0.9 - 3.2 x10(3)/ L [facility] Monocyte % 7.9 % [facility] Monocyte Abs 0.9 0.3 - 0.9 x10(3)/mc L [facility] Eos % 0.0 % [facility] Eosinophils Abs 0.0 0.0 - 0.4 x10(3)/[facility] Basophil % 0.1 % [facility] Baso Absolute 0.0 0.0 - 0.1 x10(3)/[facility] Immature Gran % 0.90 % [facility] Comment: Immature granulocytes(IG's)percentage and absolute count will include metamyelocytes, myelocytes, and promyelocytes. Blood smears from CBCs yielding IG's will be scanned manually for concordance. If this scan disagrees with the automated IG or if promyelocytes are noted, a manual differential will be performed. Immature Gran Absolute 0.10(H) 0.00 - 0.04 x10(3)/ L [facility] Blood 05/14/2023 1:10 AM EDT 05/14/2023 1:24 AM EDT Narrative Resulting Agency Comment Spec In Lab Bonita TOBAR HEMATOLOGY ORDERABLE S [facility] [place] [address] * (ABNORMAL) Hemogram (05/14/2023 1:10 AM EDT) White Blood Cell 11.2(H) 4.0 - 9.5 x10(3)/ L [facility] Red Blood Cell 2.19(L) 4.00 - 5.21 x10(6)/mc L [facility] Hemoglobin 7.2(L) 11.7 - 15.5 g/dL [facility] Hematocrit 20.3(L) 35.7 - 45.8 % [facility] Mean Cell Volume 92.7 82.6 - 94.4 fL [facility] Mean Cell Hemoglobin 32.9(H) 27.1 - 32.0 pg [facility] Mean Cell Hemoglobin Concentration 35.5(H) 31.7 - 35.0 g/dL [facility] Platelet 112(L) 145 - 357 x10(3)/mc L [facility] RDW Standard Deviation 41.4 37.0 - 46.0 fL [facility] RDW coefficient of variation 12.5 11.5 - 14.1 % [facility] Mean Platelet Volume 10.4 7.6 - 12.9 fL [facility] NRBC% auto 1.5 % [facility] NRBC Absolute 0.170(H) 0.000 - 0.000 x10(3)/mc L [facility] Blood 05/14/2023 1:10 AM EDT 05/14/2023 1:24 AM EDT Narrative Resulting Agency Comment Spec In Lab Bonita TOBAR HEMATOLOGY ORDERABLE S Performing Organization Address City/State/[facility] Co de Phone Number [facility] [place] [address] * (ABNORMAL) Comprehensive metabolic panel (non-fasting) (05/14/2023 1:10 AM EDT) Glucose 120 65 - 199 mg/dL [facility] Comment:Diabetes: >=200 mg/d L plus symptoms Blood Urea Nitrogen 98(H) 8 - 18 mg/dL [facility] Creatinine 4.80(H) 0.70 - 1.20 mg/dL [facility] Comment:result [place]he[place]ed[place] Sodium 132(L) 135 - 145 mmol/L [facility] Potassium 4.1 3.5 - 5.0 mmol/L [facility] Comment: Please note: ??Patients with WBC >100,000 may have falsely elevated Potassium levels. ??For accurate Potassium quantification in these patients send serum separator tube (gold top) for subsequent determinations. ??Contact the Clinical Chemistry Laboratory if there are any questions. Chloride 94(L) 98 - 107 mmol/L [facility] Carbon Dioxide 18(L) 22 - 31 mmol/L [facility] Anion Gap 20(H) 5 - 15 mmol/L [facility] Calcium 8.5 8.5 - 10.5 mg/dL [facility] Protein, Total 5.8(L) 6.1 - 8.0 g/dL [facility] Albumin 3.6 3.2 - 5.2 g/dL [facility] Aspartate Aminotransferase 319(H) 0 - 30 unit/L [facility] Alanine Aminotransferase 437(H) 0 - 30 unit/L [facility] Alkaline Phosphatase 86 35 - 105 unit/L [facility] Bilirubin, Total 0.4 0.2 - 1.3 mg/dL [facility] Est Glomerular Filtration Rate 9(L) >=60 mL/min/1. 73 m?? [facility] [...] Lab Alirio Hudson MD CHEMISTRY ORDERABLE S [facility] [place] [address] * APTT (05/13/2023 10:15 AM EDT) Partial Thromboplastin Time 27 25 - 37 sec [facility] Comment: The PTT is NOT appropriate for heparin monitoring. Use the Anti-Xa level for heparin monitoring (HEP UFH) or LMWH monitoring (HEP LMW). A PTT less than 37 seconds generally indicates adequate hemostasis. Blood 05/13/2023 10:1 5 AM EDT 05/13/2023 10:46 AM EDT Narrative Resulting Agency Comment Spec In Lab Alirio Hudson MD HEMATOLOGY ORDERABL ES Performing Organization Address [facility] de Phone Number [facility] [place] [address] * (ABNORMAL) Prothrombin Time (05/13/2023 10:15 AM EDT) Prothrombin Time 14.6(H) 9.4 - 12.5 sec [facility] International Normalization Ratio 1.3 [facility] Comment: An INR <2.0 indicates adequate [...] ORDERABL ES Performing Organization Address [facility] de Phone Number [facility] [place] [address] * EKG 12 Lead (05/13/2023 9:22 AM EDT) Ventricular rate 92 BPM MUSE SYSTEM Atrial Rate 92 BPM MUSE SYSTEM P-R Interval 140 ms MUSE SYSTEM QRS Duration 104 ms MUSE SYSTEM Q-T Interval 384 ms MUSE SYSTEM QTC Calculated (Bezet) 474 ms MUSE SYSTEM Calculated P Dugger 33 degrees MUSE SYSTEM Calculated R Dugger 41 degrees MUSE SYSTEM Calculated T Dugger -35 degrees MUSE SYSTEM INTERPRETATION Sinus rhythm with frequent Premature ventricular complexes Septal infarct , age undetermined ST & T wave abnormality, consider lateral ischemia Abnormal ECG When compared with ECG of 12-MAY-2023 10:10, Premature ventricular complexes are now Present I personally reviewed the tracing and edited the fellows interpretation Confirmed by fellow MD Anitha, Carissa ([id number]) on 05/13/2023 3:25:30 PM Confirmed by Maxx Best ([id number]) on 05/13/2023 8:30:56 PM MUSE SYSTEM 05/13/2023 9:22 AM EDT 05/13/2023 8:30 PM EDT Alirio Hudson MD ECG ORDERABLES MUSE SYSTEM * (ABNORMAL) Differential, Automated (05/13/2023 1:15 AM EDT) Neutrophil % 88.1 % [facility] Neutrophil Absolute 7.62(H) 1.70 - 6.10 x10(3)/mc L [facility] Lymph % 3.1 % [facility] Lymphocytes Abs 0.3(L) 0.9 - 3.2 x10(3)/mc L [facility] Monocyte % 7.9 % [facility] Monocyte Abs 0.7 0.3 - 0.9 x10(3)/mc L [facility] Eos % 0.0 % [facility] Eosinophils Abs 0.0 0.0 - 0.4 x10(3)/mc L [facility] Basophil % 0.1 % [facility] Baso Absolute 0.0 0.0 - 0.1 x10(3)/mc L [facility] Immature Gran % 0.80 % [facility] Comment: Immature granulocytes(IG's)percentage and absolute count will include metamyelocytes, myelocytes, and promyelocytes. Blood smears from CBCs yielding IG's will be scanned manually for concordance. If this scan disagrees with the automated IG or if promyelocytes are noted, a manual differential will be performed. Immature Gran Absolute 0.07(H) 0.00 - 0.04 x10(3)/mc L [facility] Blood 05/13/2023 1:15 AM EDT 05/13/2023 1:29 AM EDT Narrative Resulting Agency Comment Spec In Lab Lorri TOBAR HEMATOLOGY ORDERABLE S [facility] [place] [address] * (ABNORMAL) Hemogram (05/13/2023 1:15 AM EDT) White Blood Cell 8.6 4.0 - 9.5 x10(3)/mc L [facility] Red Blood Cell 2.37(L) 4.00 - 5.21 x10(6)/mc L [facility] Hemoglobin 7.8(L) 11.7 - 15.5 g/dL [facility] Hematocrit 22.2(L) 35.7 - 45.8 % [facility] Mean Cell Volume 93.7 82.6 - 94.4 fL [facility] Mean Cell Hemoglobin 32.9(H) 27.1 - 32.0 pg [facility] Mean Cell Hemoglobin Concentration 35.1(H) 31.7 - 35.0 g/dL [facility] Platelet 130(L) 145 - 357 x10(3)/mc L [facility] RDW Standard Deviation 41.7 37.0 - 46.0 fL [facility] RDW coefficient of variation 12.5 11.5 - 14.1 % [facility] Mean Platelet Volume 10.2 7.6 - 12.9 fL [facility] NRBC% auto 0.5 % [facility] NRBC Absolute 0.040(H) 0.000 - 0.000 x10(3)/mc L [facility] Blood 05/13/2023 1:15 AM EDT 05/13/2023 1:29 AM EDT Narrative Resulting Agency Comment Spec In Lab Lorri TOBAR HEMATOLOGY ORDERABLE S [facility] [place] [address] * (ABNORMAL) Hepatic Function Panel (05/13/2023 1:15 AM EDT) Pathologist [facility] Protein, Total 5.5(L) 6.1 - 8.0 g/dL [facility] Albumin 3.0(L) 3.2 - 5.2 g/dL [facility] Aspartate Aminotransferase 792(H) 0 - 30 unit/L [facility] Alanine Aminotransferase 903(H) 0 - 30 unit/L [facility] Alkaline Phosphatase 85 35 - 105 unit/L [facility] Bilirubin, Total 0.5 0.2 - 1.3 mg/dL [facility] Bilirubin, Direct 0.3 0.0 - 0.3 mg/dL [facility] Blood 05/13/2023 1:15 AM EDT 05/13/2023 1:29 AM EDT Narrative Resulting Agency Comment Spec In Lab Alirio Hudson MD CHEMISTRY ORDERABLE S [facility] [place] [address] * (ABNORMAL) Basic Metabolic Panel (non-fasting) (05/13/2023 1:15 AM EDT) Glucose 107 65 - 199 mg/dL [facility] Comment:Diabetes: >=200 mg/d L plus symptoms Blood Urea Nitrogen 82(H) 8 - 18 mg/dL [facility] Creatinine 3.15(H) 0.70 - 1.20 mg/dL [facility] Comment:result rechecked-[facility] Sodium 132(L) 135 - 145 mmol/L [facility] [...] questions. Chloride 95(L) 98 - 107 mmol/L [facility] Carbon Dioxide 20(L) 22 - 31 mmol/L [facility] Anion Gap 17(H) 5 - 15 mmol/L [facility] Calcium 8.3(L) 8.5 - 10.5 mg/dL [facility] Est Glomerular Filtration Rate 16(L) >=60 mL/min/1. 73 m?? [facility] [...] Lab Alirio Hudson MD CHEMISTRY ORDERABLE S [facility] [place] [address] * (ABNORMAL) BLOOD GAS 2 ARTERIAL (05/12/2023 3:57 PM EDT) pH, Arterial 7.39 7.35 - 7.45 [facility] PCO2, Arterial 33(L) 35 - 45 mmHg [facility] PO2, Arterial 101 85 - 104 mmHg [facility] Bicarbonate, Arterial 19.5(L) 20.0 - 26.0 mmol/L [facility] Base Excess, Arterial -5.5(L) -3.0 - 3.0 mmol/L [facility] Hgb Blood Gas 9.8(L) 11.7 - 15.5 g/dL [facility] Oxyhemoglobin, Arterial 95.2 94.0 - 97.0 % [facility] Carboxyhemoglob in, Arterial 0.2 % [facility] Comment: Nonsmokers: 0.5-1.5% COHB Smokers: Variable, but usually less than 10% Toxic: 20-30% COHB Lethal: Greater than 60% COHB Methemoglobin, Arterial 0.8 <=1.5 % [facility] Na Whole Blood 129(L) 135 - 145 mmol/L [facility] K Whole Blood 3.8 3.5 - 5.0 mmol/L [facility] Comment: Please note: Patients with WBC >100,000 may have falsely elevated Potassium levels. Contact the Clinical Chemistry Laboratory if there are any questions. ICa Whole Blood 1.05(L) 1.15 - 1.33 mmol/L [facility] Comment: Note: ??Total bilirubin higher than 20 mg/dL may lead to falsely low ionized calcium. CL Whole Blood 96(L) 98 - 107 mmol/L [facility] Gluc Whole Bld 178 65 - 199 mg/dL [facility] Comment:Diabetes: >=200 mg/d L plus symptoms. Lactate WB 1.5 0.5 - 2.2 mmol/L [facility] FIO2 Art 40 % [facility] PF Ratio Art 252 [facility] Blood 05/12/2023 3:57 PM EDT 05/12/2023 3:57 PM EDT Alirio Hudson MD POINT OF CARE TEST ORDERABLES Performing Organization Address [facility] Co de Phone Number [facility] [place] [address] * (ABNORMAL) Coox2 (05/12/2023 2:25 PM EDT) pO2, Coox [address] [facility] Hgb Blood Gas 9.5(L) 11.7 - 15.5 g/dL [facility] Oxyhemoglobin, Coox 59.9 % [facility] Carboxyhemoglo bin, Coox 0.3 % [facility] Comment: Nonsmokers: 0.5-1.5% COHB Smokers: Variable, but usually less than 10% Toxic: 20-30% COHB Lethal: Greater than 60% COHB Methemoglobin, Coox 0.7 <=1.5 % [facility] Source Coox Mixed Venous [facility] Blood 05/12/2023 2:25 PM EDT 05/12/2023 2:25 PM EDT Alirio Hudson MD POINT OF CARE TEST ORDERABLES Performing Organization Address [facility] Co de Phone Number [facility] [place] [address] * (ABNORMAL) BLOOD GAS 2 ARTERIAL (05/12/2023 2:23 PM EDT) pH, Arterial 7.37 7.35 - 7.45 [facility] PCO2, Arterial 36 35 - 45 mmHg [facility] PO2, Arterial 102 85 - 104 mmHg [facility] Bicarbonate, Arterial 20.4 20.0 - 26.0 mmol/L [facility] Base Excess, Arterial -4.8(L) -3.0 - 3.0 mmol/L [facility] Hgb Blood Gas 12.7 11.7 - 15.5 g/dL [facility] Oxyhemoglobin, Arterial 95.4 94.0 - 97.0 % [facility] Carboxyhemoglob in, Arterial 0.3 % [facility] Comment: Nonsmokers: 0.5-1.5% COHB Smokers: Variable, but usually less than 10% Toxic: 20-30% COHB Lethal: Greater than 60% COHB Methemoglobin, Arterial 0.7 <=1.5 % [facility] Na Whole Blood 129(L) 135 - 145 mmol/L [facility] K Whole Blood 3.7 3.5 - 5.0 mmol/L [facility] Comment: Please note: Patients with WBC >100,000 may have falsely elevated Potassium levels. Contact the Clinical Chemistry Laboratory if there are any questions. ICa Whole Blood 1.05(L) 1.15 - 1.33 mmol/L [facility] Comment: Note: ??Total bilirubin higher than 20 mg/dL may lead to falsely low ionized calcium. CL Whole Blood 95(L) 98 - 107 mmol/L [facility] Gluc Whole Bld 168 65 - 199 mg/dL [facility] Comment:Diabetes: >=200 mg/d L plus symptoms. Lactate WB 1.8 0.5 - 2.2 mmol/L [facility] FIO2 Art 40 % [facility] PF Ratio Art 255 [facility] Blood 05/12/2023 2:23 PM EDT 05/12/2023 2:23 PM EDT Alirio Hudson MD POINT OF CARE TEST ORDERABLES [facility] [place] [address] * (ABNORMAL) Troponin (05/12/2023 2:05 PM EDT) Troponin-T, High Sensitivity 1,022(H) <=14 ng/L [facility] Comment: This patient's troponin T concentration [...] can be found in the [facility] Laboratory Test Catalog Troponin - [facility] Laboratory Test Catalog Reference: Fourth [place] Definition of Myocardial Infarction. Journal of the [place] [employer] 2018;72:1508-9591 Blood 05/12/2023 2:05 PM EDT 05/12/2023 2:14 PM EDT Narrative Resulting Agency Comment Spec In Lab Alirio Hudson MD CHEMISTRY ORDERABLE S Performing Organization Address City/[facility] Co de Phone Number [facility] [place] [address] * (ABNORMAL) Hemoglobin (05/12/2023 2:05 PM EDT) Hemoglobin 8.5(L) 11.7 - 15.5 g/dL [facility] Blood 05/12/2023 2:05 PM EDT 05/12/2023 2:14 PM EDT Narrative Resulting Agency Comment Spec In Lab Alirio Hudson MD HEMATOLOGY ORDERABL ES Performing Organization Address [facility]/ZIP Co de Phone Number [facility] [place] [address] * Potassium (05/12/2023 2:05 PM EDT) Potassium 3.9 3.5 - 5.0 mmol/L [facility] [...] Lab Alirio Hudson MD CHEMISTRY ORDERABLE S [facility] [place] [address] * (ABNORMAL) BLOOD GAS 2 ARTERIAL (05/12/2023 11:05 AM EDT) pH, Arterial 7.34(L) 7.35 - 7.45 [facility] PCO2, Arterial 42 35 - 45 mmHg [facility] PO2, Arterial 73(L) 85 - 104 mmHg [facility] Bicarbonate, Arterial 22.1 20.0 - 26.0 mmol/L [facility] Base Excess, Arterial -3.6(L) -3.0 - 3.0 mmol/L [facility] Hgb Blood Gas 9.3(L) 11.7 - 15.5 g/dL [facility] Oxyhemoglobin, Arterial 89.3(L) 94.0 - 97.0 % [facility] Carboxyhemoglob in, Arterial 0.2 % [facility] Comment: Nonsmokers: 0.5-1.5% COHB Smokers: Variable, but usually less than 10% Toxic: 20-30% COHB Lethal: Greater than 60% COHB Methemoglobin, Arterial 0.9 <=1.5 % [facility] Na Whole Blood 131(L) 135 - 145 mmol/L [facility] K Whole Blood 3.8 3.5 - 5.0 mmol/L [facility] Comment: Please note: Patients with WBC >100,000 may have falsely elevated Potassium levels. Contact the Clinical Chemistry Laboratory if there are any questions. ICa Whole Blood 1.04(L) 1.15 - 1.33 mmol/L [facility] Comment: Note: ??Total bilirubin higher than 20 mg/dL may lead to falsely low ionized calcium. CL Whole Blood 96(L) 98 - 107 mmol/L [facility] Gluc Whole Bld 152 65 - 199 mg/dL [facility] Comment:Diabetes: >=200 mg/d L plus symptoms. Lactate WB 2.8(H) 0.5 - 2.2 mmol/L [facility] FIO2 Art 40 % [facility] PF Ratio Art 182 [facility] Blood 05/12/2023 11:0 5 AM EDT 05/12/2023 11:05 AM EDT Alirio Hudson MD POINT OF CARE TEST ORDERABLES Performing Organization Address City/State/[facility] Co de Phone Number [facility] [place] [address] * (ABNORMAL) BLOOD GAS 2 ARTERIAL (05/12/2023 10:14 AM EDT) pH, Arterial 7.18(Criti gabrielle) 7.35 - 7.45 [facility] Comment:Noted by instrument person. PCO2, Arterial 45 35 - 45 mmHg [facility] PO2, Arterial 186(H) 85 - 104 mmHg [facility] Bicarbonate, Arterial 16.2(L) 20.0 - 26.0 mmol/L [facility] Base Excess, Arterial -12.2(L) -3.0 - 3.0 mmol/L [facility] Hgb Blood Gas 10.0(L) 11.7 - 15.5 g/dL [facility] Oxyhemoglobin, Arterial 97.0 94.0 - 97.0 % [facility] Carboxyhemoglob in, Arterial 0.2 % [facility] Comment: Nonsmokers: 0.5-1.5% COHB Smokers: Variable, but usually less than 10% Toxic: 20-30% COHB Lethal: Greater than 60% COHB Methemoglobin, Arterial 0.9 <=1.5 % [facility] Na Whole Blood 129(L) 135 - 145 mmol/L [facility] K Whole Blood 3.6 3.5 - 5.0 mmol/L [facility] Comment: Please note: Patients with WBC >100,000 may have falsely elevated Potassium levels. Contact the Clinical Chemistry Laboratory if there are any questions. ICa Whole Blood 1.10(L) 1.15 - 1.33 mmol/L [facility] Comment: Note: ??Total bilirubin higher than 20 mg/dL may lead to falsely low ionized calcium. CL Whole Blood 97(L) 98 - 107 mmol/L [facility] [facility] Gluc Whole Bld 161 65 - 199 mg/dL [facility] Comment:Diabetes: >=200 mg/d L plus symptoms. Lactate WB 3.3(H) 0.5 - 2.2 mmol/L [facility] FIO2 Art 100 % [facility] PF Ratio Art 186 [facility] Blood 05/12/2023 10:1 4 AM EDT 05/12/2023 10:14 AM EDT Alirio Hudson MD POINT OF CARE TEST ORDERABLES Performing Organization Address City/State/[facility] Co de Phone Number [facility] [place] [address] * EKG 12 Lead (05/12/2023 10:10 AM EDT) Ventricular rate 116 BPM MUSE SYSTEM Atrial Rate 116 BPM MUSE SYSTEM P-R Interval 158 ms MUSE SYSTEM QRS Duration 114 ms MUSE SYSTEM Q-T Interval 348 ms MUSE SYSTEM QTC Calculated (Bezet) 483 ms MUSE SYSTEM Calculated P Dugger 37 degrees MUSE SYSTEM Calculated R Dugger 31 degrees MUSE SYSTEM Calculated T Dugger -138 degrees MUSE SYSTEM INTERPRETATION Sinus tachycardia [...] interpretation Confirmed by fellow MD Licea Andrew ([id number]) on 05/12/2023 1:04:20 PM Confirmed by MD Villareal Danette ([id number]) on 05/12/2023 9:28:34 PM MUSE SYSTEM 05/12/2023 [...] have questions please contact the health medicare contact specialist that requested your imaging first. ? Narrative 05/12/2023 10:08 AM EDT EXAMINATION: XR CHEST ONE VIEW CLINICAL HISTORY: Post TAVR TECHNIQUE: 1 view of the chest COMPARISON: Chest radiograph from earlier today FINDINGS: Interval placement of endotracheal tube with tip terminating 2 cm above the shira. Interval placement of enteric tube projecting along the expected course of the esophagus and outside the qoarv-sx-jzap. Interval retraction of right IJ approach pulmonary [...] expected course ofthe esophagus and outside the djlrd-hd-qxlh. Interval retraction of right IJ approach pulmonary [...] who have questions please contactthe health medicare contact specialist that requested your imaging first. Electronically signed by: Chyna Johnson MD, [facility]([phone]), at 05/12/2023 10:08 AM Alirio Hudson MD IMG DX ORDERABLES * ECHO LMTD W/O CONTRAST W LMTD SPEC DOPP COLOR DOPP (05/12/2023 9:23 AM EDT) EF 20 [facility] SYSTEM Anatomical Region Laterality Modality Cardiac Other 05/12/2023 7:33 AM EDT Narrative 05/12/2023 10:18 AM EDT ? Echocardiogram Report Name: LASHELL THACKEROUMARIZA Mejias ?Study Date: 05/12/2023 07:33 AMBP: 96/63 mmHg ? Patient Location: [place] CA06 A : 1955 ? Height: 154 cm ? Account: [id number] Age: 67 yrs ? Weight: 75 kg Gender: Female ?BSA: 1.7 m2 Ordering Physician: RADHA HOLLINS Referring Physician: RADHA HOLLINS Performed By: Dilma Bee RDCS Reason For Study: Guidance for TAVR procedure Exam Location: [facility]. Interpretation Summary PRE TAVR: There [...] mL/m2. POST TAVR: Normal function of the keaqd-cl-itwxh prosthesis. See below for hemodynamic parameters. Slight improvement in left and right ventricular systolic function. LVEF now 20-25%. No pericardial effusion. See report for additional findings. Procedure Limited - 85304. Doppler - 15848. Color Doppler - 60093. Left Ventricle Left ventricle is of normal [...] 307:33 AMBP: 96/63 mmHg Patient Location: [address] : 1955 Height: 154 cm Account: [id number] Age: 67 yrs Weight: 75 kg Gender: Female BSA: 1.7 m2 Ordering Physician: RADHA HOLLINS Referring Physician: RADHA HOLLINS Performed By: Dilma Bee RDCS Reason For Study: Guidance for TAVR procedure Exam Location: [facility]. Interpretation Summary PRE TAVR: There [...] 28mL/m2. POST TAVR: Normal function of the yyoef-vs-rolcm prosthesis. See belowfor hemodynamic parameters. Slight improvement in left and right ventricularsystolic function. LVEF now 20-25%. No pericardial effusion. See report for additional findings. Procedure Limited - 85229. Doppler - 16936. Color Doppler - 38761. Left Ventricle Left ventricle is of normal [...] ? Procedure Date: 05/12/2023 ? A #: [id number] ? Primary Physician: Young, Antelmo N ? Case #: [id number] ? File Name: [id number] ? Catheterization Order Number: [id number] ? [facility] ? Final Report [place], [place] ? Patient Name: ? Purnimamariza Thacker ? ID#: ?[id number] ? : ?1955 ? Procedure Date: ? May 12, 2023 ? Case #: ? [id number] ? Room: ? 6 ? Case Physicians: ?Antelmo Sharma M.D. ?Start: ?08:03 ?Alirio Hudson M.D. ?Admission: ??05/08/2023 ?Lynda Mcgowan M.D. ? Discharge: ??05/22/2023 ?Fellow: ? Rebekah Tejeda M.D. ? Referring Physician: ??Mario Alberto Chin M.D. ? Procedures: ?* Coronary Angiography ?* Left Heart Catheterization ?* Coronary Stent Insertion ?* Transcatheter Aortic Valve Replacement ?* Vascular Closure Device Deployment ?* Temporary Pacemaker Insertion In Investment Accountant ?* Endotracheal Intubation By Non-Cath Physician ?* [...] guide. ??A premounted 4.00 x [address] [place] [address] Clair (MINNA) was ? deployed with a maximum [...] calculated STS risk score was 30.1%. A zpzsu-yc-fgiwu ?procedure was performed on the pre-existing bioprosthetic stented ?prosthesis. The priority of the uyizh-qk-nsvax procedure was Elective. ?The procedure was performed [...] Lai 3 Ultra RESILIA 23 mm THV (s/h=[id number]) transcatheter ?valve was inserted using standard technique. [...] to nor was it given in the ?wharf labourer. ?Recommended anti-platelet/anti-thrombotic regimen: ?Continue aspirin 81 mg daily for indefinitely. ?These recommendations are made at the time of the intervention. Patient ?and provider preferences or a changing clinical situation may require ?modification of this regimen. Consult [facility] Interventional Cardiology for ?questions. ? [...] regimen. ? Comments: ?Successful right transfemoral TAVR Vdcun-jm-Vlnyn with a 23 mm Lai 3 ?THV. [...] insertion-coronary, access site angiography, ?temporary pacemaker in wharf labourer, intubation-non cath physician, vascular ?closure device, transthoracic echo ??and TAVR. Dr. Alirio Hudson M.D. ?performed the left heart catheterization, access site angiography, ?temporary pacemaker in wharf labourer, vascular closure device, transthoracic ?echo , TAVR and CPR during cath. Dr. Lynda Mcgowan M.D. performed the ABG, ?anesthesia and intubation-non cath physician. ? Antelmo Sharma, M.D. ? Electronically Signed by: Antelmo Sharma, M.D. ? Report Finalized: 05/12/2023 ??14:31 ? Report Last Ammended: 07/01/2023 ??11:30 ? Procedure Note Antelmo Sharma MD - 07/01/[address] [facility] Cardiac Catheterization/Intervention Report Patient Name: Purnima Thacker Procedure Date: 05/12/2023 A #: [id number] Primary Physician: Antelmo Sharma Case #: [id number] File Name: [id number] Catheterization Order Number: [id number] [facility] FinalReport [place], [place] Patient Name: Purnima Thacker ID#:[id number] :1955 Procedure Date: May 12, 2023 Case #: [id number] Room: 6 [facility] Physicians: Antelmo Sharma M.D. Start: 08:03 Alirio Hudson M.D. Admission:05/08/2023 Lynda Mcgowan M.D. Discharge:05/22/2023 Fellow: Rebekah Tejeda M.D. Referring Physician: Mario Alberto Chin M.D. Procedures: * Coronary Angiography * Left Heart Catheterization * Coronary Stent Insertion * Transcatheter Aortic Valve Replacement * Vascular Closure Device Deployment * Temporary Pacemaker Insertion In Investment Accountant * Endotracheal Intubation By Non-Cath Physician * [...] A premounted 4.[address] x [address] [address] [place] (MINNA) was deployed with a maximum inflation [...] calculated STS risk score was 30.1%. A poyue-gm-hsfxd procedure was performed on the pre-existing bioprosthetic stented prosthesis. The priority of the twvym-it-ohrpl procedure wasElective. The procedure was performed under Moderate sedation performed byLynda Mcgowan M.D. (see anesthesia report for additional details). Alirio Hudson M.D. participated in the case (see Cardiac Surgery reportfor additional details). The TAVR sheath was a 14 Fr Corona eSheath Introducer and theaccess site was femoral. Rapid ventricular pacing was performed. An Corona Lai 3 Ultra RESILIA 23 mm THV (s/s=[id number])transcatheter valve was inserted using standard technique. The [...] prior to nor was it given inthe wharf labourer. Recommended anti-platelet/anti-thrombotic regimen: Continue aspirin 81 mg daily for indefinitely. These recommendations are made at the time of the intervention.Patient and provider preferences or a changing clinical situation mayrequire modification of this regimen. Consult [facility] Interventional Cardiologyfor questions. Conclusions: * [...] this regimen. Comments: Successful right transfemoral TAVR Mydne-im-Eqmox with a 23 mmSapien 3 THV. We [...] insertion-coronary, access site angiography, temporary pacemaker in wharf labourer, intubation-non cath physician,vascular closure device, transthoracic echo and TAVR. Dr. Alirio Hudson M.D. performed the left heart catheterization, access site angiography, temporary pacemaker in wharf labourer, vascular closure device,transthoracic echo , TAVR and [...] pH, POC 7.20(Crit ical) 7.35 - 7.45 [facility] Comment:Critical value OK, C C Lab. pCO2, POC 42 35 - 45 mmHg [facility] pO2, POC 260(H) 85 - 104 mmHg [facility] Base Excess, POC -11.0(L) -3.0 - 3.0 mmol/L [facility] Bicarbonate, POC 16.7(L) 20.0 - 26.0 mmol/L [facility] Sodium, POC 129(L) 135 - 145 mmol/L [facility] POC Potassium 3.8 3.5 - 5.0 mmol/L [facility] Ionized Calcium, POC 1.12(L) 1.15 - 1.33 mmol/L [facility] POC Hematocrit 23.0(L) 34.0 - 45.0 % [facility] POC Calc Hgb 7.8(L) 11.2 - 15.7 g/dL [facility] Comment:The calculation of h emoglobin from hematocrit assumes a normal MCHC. POC Bgas Loc CC Lab [facility] Blood 05/12/2023 8:50 AM EDT 05/13/2023 12:00 PM EDT Alirio Hudson MD CHEMISTRY ORDERABLE S [facility] [place] [address] * (ABNORMAL) Point of Care Blood Gas Historical (05/12/2023 8:10 AM EDT) pH, POC 7.27(Crit ical) 7.35 - 7.45 [facility] Comment:Critical value OK, C C Lab. pCO2, POC 37 35 - 45 mmHg [facility] pO2, POC 29(Critic al) 85 - 104 mmHg [facility] Comment:Critical value OK, C C Lab. Base Excess, POC -10.0(L) -3.0 - 3.0 mmol/L [facility] Bicarbonate, POC 16.7(L) 20.0 - 26.0 mmol/L [facility] Sodium, POC 123(L) 135 - 145 mmol/L [facility] POC Potassium 4.0 3.5 - 5.0 mmol/L [facility] Ionized Calcium, POC 1.12(L) 1.15 - 1.33 mmol/L [facility] POC Hematocrit 27.0(L) 34.0 - 45.0 % [facility] POC Calc Hgb 9.2(L) 11.2 - 15.7 g/dL [facility] Comment:The calculation of h emoglobin from hematocrit assumes a normal MCHC. POC Bgas Loc CC Lab [facility] Blood 05/12/2023 8:10 AM EDT 05/13/2023 12:00 PM EDT Alirio Hudson MD CHEMISTRY ORDERABLE S [facility] [place] [address] * (ABNORMAL) Lactate, whole blood, send to lab ([facility]) (05/12/2023 7:00 AM EDT) Lactate WB 2.4(H) 0.5 - 2.2 mmol/L [facility] Blood 05/12/2023 7:00 AM EDT 05/12/2023 7:09 AM EDT Narrative Resulting Agency Comment Spec In Lab Radha Hollins MD CHEMISTRY ORDERABL ES Performing Organization Address City/[facility]/ZIP Co de Phone Number [facility] [place] [address] * (ABNORMAL) Comprehensive metabolic panel (non-fasting) (05/12/2023 6:00 AM EDT) Glucose 167 65 - 199 mg/dL [facility] Comment:Diabetes: >=200 mg/d L plus symptoms Blood Urea Nitrogen 67(H) 8 - 18 mg/dL [facility] Creatinine 2.01(H) 0.70 - 1.20 mg/dL [facility] Sodium 131(L) 135 - 145 mmol/L [facility] Potassium 4.3 3.5 - 5.0 mmol/L [facility] Comment: Please note: ??Patients with WBC >100,000 may have falsely elevated Potassium levels. ??For accurate Potassium quantification in these patients send serum separator tube (gold top) for subsequent determinations. ??Contact the Clinical Chemistry Laboratory if there are any questions. Chloride 97(L) 98 - 107 mmol/L [facility] Carbon Dioxide 14(L) 22 - 31 mmol/L [facility] Anion Gap 20(H) 5 - 15 mmol/L [facility] Calcium 8.6 8.5 - 10.5 mg/dL [facility] Protein, Total 6.3 6.1 - 8.0 g/dL [facility] Albumin 3.5 3.2 - 5.2 g/dL [facility] Aspartate Aminotransferase 1,435(H) 0 - 30 unit/L [facility] Alanine Aminotransferase 1,174(H) 0 - 30 unit/L [facility] Alkaline Phosphatase 100 35 - 105 unit/L [facility] Bilirubin, Total 0.9 0.2 - 1.3 mg/dL [facility] Est Glomerular Filtration Rate 27(L) >=60 mL/min/1. 73 m?? [facility] [...] Lab Radha Hollins MD CHEMISTRY ORDERABL ES [facility] [address] * (ABNORMAL) Coox2 (05/12/2023 5:08 AM EDT) pO2, Coox 24 mmHg [facility] Hgb Blood Gas 10.4(L) 11.7 - 15.5 g/dL [facility] Oxyhemoglobin, Coox 30.7 % [facility] Carboxyhemoglo bin, Coox 0.3 % [facility] Comment: Nonsmokers: 0.5-1.5% COHB Smokers: Variable, but usually less than 10% Toxic: 20-30% COHB Lethal: Greater than 60% COHB Methemoglobin, Coox 0.8 <=1.5 % [facility] Source Coox Mixed Venous [facility] Blood 05/12/2023 5:08 AM EDT 05/12/2023 5:08 AM EDT Radha Hollins MD POINT OF CARE TEST ORDERABLES Performing Organization Address City/[facility] Co de Phone Number [facility] [place] [address] * (ABNORMAL) Coox2 (05/12/2023 3:21 AM EDT) pO2, Coox 25 mmHg [facility] Hgb Blood Gas 10.8(L) 11.7 - 15.5 g/dL [facility] Oxyhemoglobin, Coox 32.7 % [facility] Carboxyhemoglo bin, Coox 0.3 % [facility] Comment: Nonsmokers: 0.5-1.5% COHB Smokers: Variable, but usually less than 10% Toxic: 20-30% COHB Lethal: Greater than 60% COHB Methemoglobin, Coox 0.7 <=1.5 % [facility] Source Coox Mixed Venous [facility] Blood 05/12/2023 3:21 AM EDT 05/12/2023 3:21 AM EDT Radha Hollins MD POINT OF CARE TEST ORDERABLES Performing Organization Address [facility] Co de Phone Number [facility] [place] [address] * (ABNORMAL) BLOOD GAS 2 ARTERIAL (05/12/2023 3:18 AM EDT) pH, Arterial 7.34(L) 7.35 - 7.45 [facility] PCO2, Arterial 30(L) 35 - 45 mmHg [facility] PO2, Arterial 72(L) 85 - 104 mmHg [facility] Bicarbonate, Arterial 16.0(L) 20.0 - 26.0 mmol/L [facility] Base Excess, Arterial -9.8(L) -3.0 - 3.0 mmol/L [facility] Hgb Blood Gas 11.0(L) 11.7 - 15.5 g/dL [facility] Oxyhemoglobin, Arterial 89.8(L) 94.0 - 97.0 % [facility] Carboxyhemoglob in, Arterial 0.3 % [facility] Comment: Nonsmokers: 0.5-1.5% COHB Smokers: Variable, but usually less than 10% Toxic: 20-30% COHB Lethal: Greater than 60% COHB Methemoglobin, Arterial 0.7 <=1.5 % [facility] Na Whole Blood 131(L) 135 - 145 mmol/L [facility] K Whole Blood 4.2 3.5 - 5.0 mmol/L [facility] Comment: Please note: Patients with WBC >100,000 may have falsely elevated Potassium levels. Contact the Clinical Chemistry Laboratory if there are any questions. ICa Whole Blood 1.12(L) 1.15 - 1.33 mmol/L [facility] Comment: Note: ??Total bilirubin higher than 20 mg/dL may lead to falsely low ionized calcium. CL Whole Blood 100 98 - 107 mmol/L [facility] Gluc Whole Bld 160 65 - 199 mg/dL [facility] Comment:Diabetes: >=200 mg/d L plus symptoms. Lactate WB 2.7(H) 0.5 - 2.2 mmol/L [facility] Flow Art 5.[address] [facility] Blood 05/12/2023 3:18 AM EDT 05/12/2023 3:18 AM EDT Radha Hollins MD POINT OF CARE TEST ORDERABLES [facility] [place] [address] * (ABNORMAL) Coox2 (05/12/2023 1:14 AM EDT) pO2, Coox [address] [facility] Hgb Blood Gas 10.9(L) 11.7 - 15.5 g/dL [facility] Oxyhemoglobin, Coox 37.3 % [facility] Carboxyhemoglo bin, Coox 0.3 % [facility] Comment: Nonsmokers: 0.5-1.5% COHB Smokers: Variable, but usually less than 10% Toxic: 20-30% COHB Lethal: Greater than 60% COHB Methemoglobin, Coox 0.5 <=1.5 % [facility] Source Coox Mixed Venous [facility] Blood 05/12/2023 1:14 AM EDT 05/12/2023 1:14 AM EDT Radha Hollins MD POINT OF CARE TEST ORDERABLES [facility] [place] [address] * (ABNORMAL) BLOOD GAS 2 ARTERIAL (05/12/2023 1:06 AM EDT) pH, Arterial 7.34(L) 7.35 - 7.45 [facility] PCO2, Arterial 30(L) 35 - 45 mmHg [facility] PO2, Arterial 81(L) 85 - 104 mmHg [facility] Bicarbonate, Arterial 15.7(L) 20.0 - 26.0 mmol/L [facility] Base Excess, Arterial -10.1(L) -3.0 - 3.0 mmol/L [facility] Hgb Blood Gas 11.0(L) 11.7 - 15.5 g/dL [facility] Oxyhemoglobin, Arterial 92.3(L) 94.0 - 97.0 % [facility] Carboxyhemoglob in, Arterial 0.2 % [facility] Comment: Nonsmokers: 0.5-1.5% COHB Smokers: Variable, but usually less than 10% Toxic: 20-30% COHB Lethal: Greater than 60% COHB Methemoglobin, Arterial 0.6 <=1.5 % [facility] Na Whole Blood 131(L) 135 - 145 mmol/L [facility] K Whole Blood 4.2 3.5 - 5.0 mmol/L [facility] Comment: Please note: Patients with WBC >100,000 may have falsely elevated Potassium levels. Contact the Clinical Chemistry Laboratory if there are any questions. ICa Whole Blood 1.13(L) 1.15 - 1.33 mmol/L [facility] Comment: Note: ??Total bilirubin higher than 20 mg/dL may lead to falsely low ionized calcium. CL Whole Blood 99 98 - 107 mmol/L [facility] Gluc Whole Bld 132 65 - 199 mg/dL [facility] Comment:Diabetes: >=200 mg/d L plus symptoms. Lactate WB 2.7(H) 0.5 - 2.2 mmol/L [facility] Flow Art 5.[address] [facility] Blood 05/12/2023 1:06 AM EDT 05/12/2023 1:06 AM EDT Radha Hollins MD POINT OF CARE TEST ORDERABLES [facility] [place] [address] * (ABNORMAL) Differential, Automated (05/12/2023 1:05 AM EDT) Neutrophil % 83.3 % [facility] Neutrophil Absolute 7.49(H) 1.70 - 6.10 x10(3)/mc L [facility] Lymph % 7.1 % [facility] Lymphocytes Abs 0.6(L) 0.9 - 3.2 x10(3)/mc L [facility] Monocyte % 8.9 % [facility] Monocyte Abs 0.8 0.3 - 0.9 x10(3)/mc L [facility] Eos % 0.0 % [facility] Eosinophils Abs 0.0 0.0 - 0.4 x10(3)/mc L [facility] Basophil % 0.1 % [facility] Baso Absolute 0.0 0.0 - 0.1 x10(3)/mc L [facility] Immature Gran % 0.60 % [facility] Comment: Immature granulocytes(IG's)percentage and absolute count will include metamyelocytes, myelocytes, and promyelocytes. Blood smears from CBCs yielding IG's will be scanned manually for concordance. If this scan disagrees with the automated IG or if promyelocytes are noted, a manual differential will be performed. Immature Gran Absolute 0.05(H) 0.00 - 0.04 x10(3)/mc L [facility] Blood 05/12/2023 1:05 AM EDT 05/12/2023 1:15 AM EDT Narrative Resulting Agency Comment Spec In Lab Gianni Fletcher MD HEMATOLOGY ORDERABLE S [facility] [place] [address] * (ABNORMAL) Hemogram (05/12/2023 1:05 AM EDT) White Blood Cell 9.0 4.0 - 9.5 x10(3)/mc L [facility] Red Blood Cell 3.01(L) 4.00 - 5.21 x10(6)/mc L [facility] Hemoglobin 9.8(L) 11.7 - 15.5 g/dL [facility] Hematocrit 28.7(L) 35.7 - 45.8 % [facility] Mean Cell Volume 95.3(H) 82.6 - 94.4 fL [facility] Mean Cell Hemoglobin 32.6(H) 27.1 - 32.0 pg [facility] Mean Cell Hemoglobin Concentration 34.1 31.7 - 35.0 g/dL [facility] Platelet 186 145 - 357 x10(3)/mc L [facility] RDW Standard Deviation 43.7 37.0 - 46.0 fL [facility] RDW coefficient of variation 12.7 11.5 - 14.1 % [facility] Mean Platelet Volume 10.3 7.6 - 12.9 fL [facility] NRBC% auto 0.0 % [facility] NRBC Absolute 0.000 0.000 - 0.000 x10(3)/ L [facility] Blood 05/12/2023 1:05 AM EDT 05/12/2023 1:15 AM EDT Narrative Resulting Agency Comment Spec In Lab Gianni Fletcher MD HEMATOLOGY ORDERABLE S [facility] [place] [address] * (ABNORMAL) Comprehensive metabolic panel (non-fasting) (05/12/2023 1:05 AM EDT) Glucose 141 65 - 199 mg/dL [facility] Comment:Diabetes: >=200 mg/d L plus symptoms Blood Urea Nitrogen 63(H) 8 - 18 mg/dL [facility] Creatinine 1.86(H) 0.70 - 1.20 mg/dL [facility] Sodium 131(L) 135 - 145 mmol/L [facility] Potassium 4.4 3.5 - 5.0 mmol/L [facility] Comment: Please note: ??Patients with WBC >100,000 may have falsely elevated Potassium levels. ??For accurate Potassium quantification in these patients send serum separator tube (gold top) for subsequent determinations. ??Contact the Clinical Chemistry Laboratory if there are any questions. Chloride 96(L) 98 - 107 mmol/L [facility] Carbon Dioxide 14(L) 22 - 31 mmol/L [facility] Anion Gap 21(H) 5 - 15 mmol/L [facility] Calcium 9.0 8.5 - 10.5 mg/dL [facility] Protein, Total 6.6 6.1 - 8.0 g/dL [facility] Albumin 3.9 3.2 - 5.2 g/dL [facility] Aspartate Aminotransferase 1,227(H) 0 - 30 unit/L [facility] Alanine Aminotransferase 1,097(H) 0 - 30 unit/L [facility] Alkaline Phosphatase 108(H) 35 - 105 unit/L [facility] Bilirubin, Total 1.0 0.2 - 1.3 mg/dL [facility] Est Glomerular Filtration Rate 29(L) >=60 mL/min/1. 73 m?? [facility] [...] Lab Radha Hollins [place] [address] * XR Chest One View (05/12/2023 1:00 [...] have questions please contact the health medicare contact specialist that requested your imaging first. ? Electronically signed by: Will Rowe MD, [facility] ([phone]), at 05/12/2023 3:16 AM Narrative 05/12/2023 3:16 [...] who have questions please contactthe health medicare contact specialist that requested your imaging first. Electronically signed by: Will Rowe MD, [facility]([phone]), at 05/12/2023 3:16 AM Radha Hollins MD IMG DX ORDERABLES * (ABNORMAL) Coox2 (05/12/2023 12:30 AM EDT) pO2, Coox 22 mmHg [facility] Hgb Blood Gas 10.9(L) 11.7 - 15.5 g/dL [facility] Oxyhemoglobin, Coox 25.1 % [facility] Carboxyhemoglo bin, Coox 0.3 % [facility] Comment: Nonsmokers: 0.5-1.5% COHB Smokers: Variable, but usually less than 10% Toxic: 20-30% COHB Lethal: Greater than 60% COHB Methemoglobin, Coox 1.4 <=1.5 % [facility] Source Coox Mixed Venous [facility] Blood 05/12/2023 12:3 0 AM EDT 05/12/2023 12:30 AM EDT Radha Hollins MD POINT OF CARE TEST ORDERABLES [facility] [place] [address] * XR Chest One View (05/11/2023 11:45 [...] have questions please contact the health medicare contact specialist that requested your imaging first. ? [...] who have questions please contactthe health medicare contact specialist that requested your imaging first. Electronically signed by: Will Rowe MD, [facility]([phone]), at 05/11/2023 11:57 PM Radha Hollins MD IMG DX ORDERABLES * (ABNORMAL) Lactate, whole blood, send to lab ([facility]) (05/11/2023 7:40 PM EDT) Lactate WB 4.8(Critic al) 0.5 - 2.2 mmol/L [facility] Comment:Called by: [facility], Read back by: Magdalena Baires, Date/Time:05/11/23 19:54. Blood 05/11/2023 7:40 PM EDT 05/11/2023 7:49 PM EDT Narrative Resulting Agency Comment Spec In Lab Radha Hollins MD CHEMISTRY ORDERABL ES [facility] [place] [address] * Urine culture (05/11/2023 7:22 PM EDT) Urine Culture 50,000-99,000 cfu/ml Normal mucosal herman Susceptibilit y testing not routinely performed for Coagulase Negative Staphylococcu s species and other Gram Positive organisms from urine. [facility] Clean Catch Urine 05/11/2023 7:22 PM EDT 05/11/2023 8:50 PM EDT Narrative Resulting Agency Comment Spec In Lab Brody Kaplan BEADING INSTALLER MICROBIOLOGY - GENE RAL ORDERABLES Performing Organization Address [facility]/ZIP Co de Phone Number [facility] [place] [address] * (ABNORMAL) Urinalysis Microscopic Exam (05/11/2023 7:22 PM EDT) RBC, Urine 2 0 - 4 /HPF [facility] WBC, Urine >100(H) 0 - 5 /HPF [facility] Bacteria, Urine Occasional (A) None /HPF [facility] Squamous Epithelial Cells Raw Data, Urine 5(H) <=4 /HPF [facility] Hyaline Casts, Urine 3(H) 0 - 2 /LPF [facility] Clean Catch Urine 05/11/2023 7:22 PM EDT 05/11/2023 7:31 PM EDT Narrative Resulting Agency Comment Spec In Lab Brody Kaplan BEADING INSTALLER URINE ORDERABLES Performing Organization Address [facility]/ZIP Co de Phone Number [facility] [place] [address] * (ABNORMAL) Urinalysis with reflex Culture (05/11/2023 7:22 PM EDT) Glucose, Urine Dipstick Negative Negative mg/dL [facility] Protein, Urine Dipstick Trace(A) Negative mg/dL [facility] Bilirubin, Urine Dipstick Negative Negative mg/dL [facility] Comment: Clinical correlation required for positive Urine Bilirubin results as false positive may occur with some drugs and drug related products. If a false positive is suspected a serum total bilirubin should be considered if clinically indicated. Urobilinogen, Urine Dipstick Normal Normal mg/dL [facility] pH, Urn (dipstick) 5.0 5.0 - 8.0 [facility] Blood, Urine Dipstick Trace(A) Negative mg/dL [facility] Ketone, Urine Dipstick Negative Negative mg/dL [facility] Nitrite, Urine Dipstick Negative Negative [facility] Leukocytes, Urine Dipstick Moderate(A) Negative mcL [facility] Appearance, Urine Dipstick Cloudy(A) Clear [facility] Specific Alden Urine Automated >=1.030(A) 1.005 - 1.030 [facility] Color, Urine Dipstick Yellow Yellow [facility] Reflex to Culture Yes [facility] Clean Catch Urine 05/11/2023 7:22 PM EDT 05/11/2023 7:31 PM EDT Narrative Resulting Agency Comment Spec In Lab Brody Kaplan APRN URINE ORDERABLES Performing Organization Address [facility] Co de Phone Number [facility] [place] [address] * (ABNORMAL) pro-Brain Natriuretic Peptide (05/11/2023 7:11 PM EDT) NT-proBNP >35,000(H) <=124 pg/mL [facility] Blood 05/11/2023 7:11 PM EDT 05/11/2023 7:26 PM EDT Narrative Resulting Agency Comment Spec In Lab Radha Hollins MD CHEMISTRY ORDERABL ES Performing Organization Address [facility]/ZIP Co de Phone Number [facility] [place] [address] * (ABNORMAL) Lactate, whole blood, send to lab ([facility]) (05/11/2023 2:47 PM EDT) Lactate WB 2.9(H) 0.5 - 2.2 mmol/L [facility] Blood 05/11/2023 2:47 PM EDT 05/11/2023 2:53 PM EDT Narrative Resulting Agency Comment Spec In Lab Juan Luis Gonzalez MD CHEMISTRY ORDERABLES [facility] [place] [address] * (ABNORMAL) CT Angiogram Abdomen & Pelvis [...] have questions please contact the health medicare contact specialist that requested your imaging first. ? [...] have questions please contact the health medicare contact specialist that requested your imaging first. ? Electronically signed by: Cullen Narayanan MD, [facility] ([phone]), at 05/11/2023 4:37 PM Narrative 05/11/2023 4:37 [...] 610 mm2 Circumference: 88 mm Calcification: Mild Iulkxzk-tx-nsmrowjj height: Left: 6.2 mm Right: 5.8 mm THORACIC AORTA Description: Normal course and caliber. ??Mild diffuse atherosclerotic changes. No acute aortopathy noted. [facility] Teacher dimensions: Aortic root: 27.6 mm Max ascending aorta: 30.5 mm x 27.7 mm Suggested fluoroscopic angulation based on line extending through the nadirs of the three sinuses of Valsalva, set equidistant: ?? POLISH ??9 degrees; cranial 7 degrees MITRAL: Mitral [...] 610 mm2 Circumference: 88 mm Calcification: Mild Tskucuy-lc-mabxwusz height: Left: 6.2 mm Right: 5.8 mm THORACIC AORTA Description: Normal course and caliber. Mild diffuse atheroscleroticchanges. No acute aortopathy noted. [facility] Teacher dimensions: Aortic root: 27.6 mm Max ascending aorta: 30.5 mm x 27.7 mm Suggested fluoroscopic angulation based on line extending through thenadirs of the three sinuses of Valsalva, set equidistant: POLISH 9 degrees; cranial 7 degrees MITRAL: Mitral [...] who have questions please contactthe health medicare contact specialist that requested your imaging first. Electronically signed by: Cullen Narayanan MD, [facility]([phone]), at 05/11/2023 4:37 PM Antelmo Sharma MD IMG CT ORDERABLES * (ABNORMAL) Lactate, whole blood, send to lab ([facility]) (05/11/2023 9:29 AM EDT) Pathologist [facility] Lactate WB 3.1(H) 0.5 - 2.2 mmol/L [facility] Blood 05/11/2023 9:29 AM EDT 05/11/2023 9:38 AM EDT Narrative Resulting Agency Comment Spec In Lab Juan Luis Gonzalez MD CHEMISTRY ORDERABLES [facility] [place] [address] * (ABNORMAL) Differential, Automated (05/11/2023 4:42 AM EDT) Pathologist [facility] Neutrophil % 78.1 % [facility] Neutrophil Absolute 5.46 1.70 - 6.10 x10(3)/mc L [facility] Lymph % 10.6 % [facility] Lymphocytes Abs 0.7(L) 0.9 - 3.2 x10(3)/mc L [facility] Monocyte % 9.6 % [facility] Monocyte Abs 0.7 0.3 - 0.9 x10(3)/mc L [facility] Eos % 0.0 % [facility] Eosinophils Abs 0.0 0.0 - 0.4 x10(3)/mc L [facility] Basophil % 0.4 % [facility] Baso Absolute 0.0 0.0 - 0.1 x10(3)/mc L [facility] Immature Gran % 1.30 % [facility] Comment: Immature granulocytes(IG's)percentage and absolute count will include metamyelocytes, myelocytes, and promyelocytes. Blood smears from CBCs yielding IG's will be scanned manually for concordance. If this scan disagrees with the automated IG or if promyelocytes are noted, a manual differential will be performed. Immature Gran Absolute 0.09(H) 0.00 - 0.04 x10(3)/mc L [facility] Blood 05/11/2023 4:42 AM EDT 05/11/2023 4:49 AM EDT Narrative Resulting Agency Comment Spec In Lab Klaudia Reid MD HEMATOLOGY OR DERABLES Performing Organization Address City/[facility]/ZIP Co de Phone Number [facility] [place] [address] * (ABNORMAL) Hemogram (05/11/2023 4:42 AM EDT) White Blood Cell 7.0 4.0 - 9.5 x10(3)/ L [facility] Red Blood Cell 3.44(L) 4.00 - 5.21 x10(6)/ L [facility] Hemoglobin 11.1(L) 11.7 - 15.5 g/dL [facility] Hematocrit 32.7(L) 35.7 - 45.8 % [facility] Mean Cell Volume 95.1(H) 82.6 - 94.4 fL [facility] Mean Cell Hemoglobin 32.3(H) 27.1 - 32.0 pg [facility] Mean Cell Hemoglobin Concentration 33.9 31.7 - 35.0 g/dL [facility] Platelet 165 145 - 357 x10(3)/mc L [facility] RDW Standard Deviation 43.1 37.0 - 46.0 fL [facility] RDW coefficient of variation 12.7 11.5 - 14.1 % [facility] Mean Platelet Volume 10.1 7.6 - 12.9 fL [facility] NRBC% auto 0.0 % [facility] NRBC Absolute 0.000 0.000 - 0.000 x10(3)/mc L [facility] Blood 05/11/2023 4:42 AM EDT 05/11/2023 4:49 AM EDT Narrative Resulting Agency Comment Spec In Lab Klaudia Reid MD HEMATOLOGY OR DERABLES Performing Organization Address City/[facility]/ZIP Co de Phone Number [facility] [place] [address] * Heparin (unfractionated) Level (05/11/2023 4:42 AM EDT) UF Heparin 0.46 IU/mL [facility] Comment: Heparin [...] Lab Radha Hollins MD HEMATOLOGY ORDERAB LES [facility] [place] [address] * (ABNORMAL) Comprehensive metabolic panel (non-fasting) (05/11/2023 4:42 AM EDT) Glucose 143 65 - 199 mg/dL [facility] Comment:Diabetes: >=200 mg/d L plus symptoms Blood Urea Nitrogen 42(H) 8 - 18 mg/dL [facility] Creatinine 1.24(H) 0.70 - 1.20 mg/dL [facility] Sodium 134(L) 135 - 145 mmol/L [facility] Potassium 4.6 3.5 - 5.0 mmol/L [facility] Comment: Please note: ??Patients with WBC >100,000 may have falsely elevated Potassium levels. ??For accurate Potassium quantification in these patients send serum separator tube (gold top) for subsequent determinations. ??Contact the Clinical Chemistry Laboratory if there are any questions. Chloride 99 98 - 107 mmol/L [facility] Carbon Dioxide 14(L) 22 - 31 mmol/L [facility] Anion Gap 21(H) 5 - 15 mmol/L [facility] Calcium 9.6 8.5 - 10.5 mg/dL [facility] Protein, Total 7.2 6.1 - 8.0 g/dL [facility] Albumin 3.7 3.2 - 5.2 g/dL [facility] Aspartate Aminotransferase 144(H) 0 - 30 unit/L [facility] Comment:result rechecked-ssc Alanine Aminotransferase 130(H) 0 - 30 unit/L [facility] Comment:result rechecked-ssc Alkaline Phosphatase 72 35 - 105 unit/L [facility] Bilirubin, Total 0.8 0.2 - 1.3 mg/dL [facility] Est Glomerular Filtration Rate 48(L) >=60 mL/min/1. 73 m?? [facility] [...] Lab Radha Hollins MD CHEMISTRY ORDERABL ES [facility] [place] [address] * EKG 12 Lead (05/10/2023 1:16 PM EDT) Ventricular rate 118 BPM MUSE SYSTEM Atrial Rate 118 BPM MUSE SYSTEM P-R Interval 152 ms MUSE SYSTEM QRS Duration 104 ms MUSE SYSTEM Q-T Interval 316 ms MUSE SYSTEM QTC Calculated (Bezet) 442 ms MUSE SYSTEM Calculated P Dugger 29 degrees MUSE SYSTEM Calculated R Dugger 18 degrees MUSE SYSTEM Calculated T Dugger -173 degrees MUSE SYSTEM INTERPRETATION Sinus tachycardia [...] Anterior leads Confirmed by MD Villareal Danette ([id number]) on 05/10/2023 8:47:46 PM MUSE SYSTEM 05/10/2023 1:16 PM EDT 05/10/2023 8:47 PM EDT Juan Luis Gonzalez MD ECG ORDERABLES MUSE SYSTEM * Lactate, whole blood, send to lab ([facility]) (05/10/2023 11:52 AM EDT) Lactate WB 1.8 0.5 - 2.2 mmol/L [facility] Blood 05/10/2023 11:5 2 AM EDT 05/10/2023 12:13 PM EDT Narrative Resulting Agency Comment Spec In Lab Juan Luis Gonzalez MD CHEMISTRY ORDERABLES Performing Organization Address [facility] Co de Phone Number [facility] [place] [address] * XR Chest One View (05/10/2023 11:16 [...] have questions please contact the health medicare contact specialist that requested your imaging first. ? Electronically signed by: ALIX RUVALCABA MD, [facility] ([phone]), at 05/10/2023 1:25 PM Narrative 05/10/2023 1:25 [...] who have questions please contactthe health medicare contact specialist that requested your imaging first. Electronically signed by: ALIX RUVALCABA MD, [facility]([phone]), at 05/10/2023 1:25 PM Juan Luis Gonzalez MD IMG DX ORDERABLES * EKG 12 Lead (05/10/2023 7:59 AM EDT) Ventricular rate 115 BPM MUSE SYSTEM Atrial Rate 115 BPM MUSE SYSTEM P-R Interval 142 ms MUSE SYSTEM QRS Duration 102 ms MUSE SYSTEM Q-T Interval 322 ms MUSE SYSTEM QTC Calculated (Bezet) 445 ms MUSE SYSTEM Calculated P Dugger 36 degrees MUSE SYSTEM Calculated R Dugger 28 degrees MUSE SYSTEM Calculated T Dugger -119 degrees MUSE SYSTEM INTERPRETATION Sinus tachycardia with frequent Premature ventricular complexes and Fusion complexes ST & T wave abnormality, consider lateral ischemia Abnormal ECG When compared with ECG of 08-MAY-2023 15:51, No significant change was found I personally reviewed the tracing and edited the fellows interpretation Confirmed by fellow MD Anitha, Carissa ([id number]) on 05/11/2023 6:19:54 AM Confirmed by MD Tram, Chel ([id number]) on 05/11/2023 3:18:56 PM MUSE SYSTEM 05/10/2023 7:59 AM EDT 05/11/2023 3:18 PM EDT Radha Hollins MD ECG ORDERABLES MUSE SYSTEM * (ABNORMAL) Differential, Automated (05/10/2023 2:28 AM EDT) [facility] Neutrophil % 77.1 % [facility] Neutrophil Absolute 4.01 1.70 - 6.10 x10(3)/mc L [facility] Lymph % 14.0 % [facility] Lymphocytes Abs 0.7(L) 0.9 - 3.2 x10(3)/mc L [facility] Monocyte % 7.7 % [facility] Monocyte Abs 0.4 0.3 - 0.9 x10(3)/mc L [facility] Eos % 0.4 % [facility] Eosinophils Abs 0.0 0.0 - 0.4 x10(3)/mc L [facility] Basophil % 0.4 % [facility] Baso Absolute 0.0 0.0 - 0.1 x10(3)/mc L [facility] Immature Gran % 0.40 % [facility] Comment: Immature granulocytes(IG's)percentage and absolute count will include metamyelocytes, myelocytes, and promyelocytes. Blood smears from CBCs yielding IG's will be scanned manually for concordance. If this scan disagrees with the automated IG or if promyelocytes are noted, a manual differential will be performed. Immature Gran Absolute 0.02 0.00 - 0.04 x10(3)/mc L [facility] Blood 05/10/2023 2:28 AM EDT 05/10/2023 2:57 AM EDT Narrative Resulting Agency Comment Spec In Lab Klaudia Reid MD HEMATOLOGY OR DERABLES [facility] [place] [address] * (ABNORMAL) Hemogram (05/10/2023 2:28 AM EDT) White Blood Cell 5.2 4.0 - 9.5 x10(3)/ L [facility] Red Blood Cell 3.11(L) 4.00 - 5.21 x10(6)/ L [facility] Hemoglobin 10.2(L) 11.7 - 15.5 g/dL [facility] Hematocrit 30.2(L) 35.7 - 45.8 % [facility] Mean Cell Volume 97.1(H) 82.6 - 94.4 fL [facility] Mean Cell Hemoglobin 32.8(H) 27.1 - 32.0 pg [facility] Mean Cell Hemoglobin Concentration 33.8 31.7 - 35.0 g/dL [facility] Platelet 151 145 - 357 x10(3)/mc L [facility] RDW Standard Deviation 44.9 37.0 - 46.0 fL [facility] RDW coefficient of variation 12.8 11.5 - 14.1 % [facility] Mean Platelet Volume 9.8 7.6 - 12.9 fL [facility] NRBC% auto 0.0 % [facility] NRBC Absolute 0.000 0.000 - 0.000 x10(3)/ L [facility] Blood 05/10/2023 2:28 AM EDT 05/10/2023 2:57 AM EDT Narrative Resulting Agency Comment Spec In Lab Klaudia Reid MD HEMATOLOGY OR DERABLES [facility] [place] [address] * (ABNORMAL) Comprehensive metabolic panel (non-fasting) (05/10/2023 2:28 AM EDT) Glucose 100 65 - 199 mg/dL [facility] Comment:Diabetes: >=200 mg/d L plus symptoms Blood Urea Nitrogen 30(H) 8 - 18 mg/dL [facility] Creatinine 0.90 0.70 - 1.20 mg/dL [facility] Sodium 134(L) 135 - 145 mmol/L [facility] Potassium 4.1 3.5 - 5.0 mmol/L [facility] Comment: Please note: ??Patients with WBC >100,000 may have falsely elevated Potassium levels. ??For accurate Potassium quantification in these patients send serum separator tube (gold top) for subsequent determinations. ??Contact the Clinical Chemistry Laboratory if there are any questions. Chloride 102 98 - 107 mmol/L [facility] Carbon Dioxide 20(L) 22 - 31 mmol/L [facility] Anion Gap 12 5 - 15 mmol/L [facility] Calcium 9.3 8.5 - 10.5 mg/dL [facility] Protein, Total 6.4 6.1 - 8.0 g/dL [facility] Albumin 3.7 3.2 - 5.2 g/dL [facility] Aspartate Aminotransferase 24 0 - 30 unit/L [facility] Alanine Aminotransferase 14 0 - 30 unit/L [facility] Alkaline Phosphatase 70 35 - 105 unit/L [facility] Bilirubin, Total 0.5 0.2 - 1.3 mg/dL [facility] Est Glomerular Filtration Rate 70 >=60 mL/min/1. 73 m?? [facility] [...] MD CHEMISTRY ORDERABL ES Performing Organization Address [facility] Co de Phone Number [facility] [place] [address] * Heparin (unfractionated) Level (05/10/2023 2:28 AM EDT) Pathologist [facility] UF Heparin 0.37 IU/mL [facility] Comment: Heparin (anti-Xa) [...] MD HEMATOLOGY ORDERAB LES Performing Organization Address [facility] Co de Phone Number [facility] [place] [address] * (ABNORMAL) Differential, Automated (05/09/2023 4:00 AM EDT) Neutrophil % 81.7 % [facility] Neutrophil Absolute 5.26 1.70 - 6.10 x10(3)/mc L [facility] Lymph % 10.7 % [facility] Lymphocytes Abs 0.7(L) 0.9 - 3.2 x10(3)/mc L [facility] Monocyte % 6.5 % [facility] Monocyte Abs 0.4 0.3 - 0.9 x10(3)/ L [facility] Eos % 0.5 % [facility] Eosinophils Abs 0.0 0.0 - 0.4 x10(3)/mc L [facility] Basophil % 0.3 % [facility] Baso Absolute 0.0 0.0 - 0.1 x10(3)/mc L [facility] Immature Gran % 0.30 % [facility] Comment: Immature granulocytes(IG's)percentage and absolute count will include metamyelocytes, myelocytes, and promyelocytes. Blood smears from CBCs yielding IG's will be scanned manually for concordance. If this scan disagrees with the automated IG or if promyelocytes are noted, a manual differential will be performed. Immature Gran Absolute 0.02 0.00 - 0.04 x10(3)/ L [facility] Blood 05/09/2023 4:00 AM EDT 05/09/2023 4:19 AM EDT Narrative Resulting Agency Comment Spec In Lab Klaudia Reid MD HEMATOLOGY OR DERABLES Performing Organization Address City/State/[facility] Co de Phone Number [facility] [place] [address] * (ABNORMAL) Hemogram (05/09/2023 4:00 AM EDT) White Blood Cell 6.4 4.0 - 9.5 x10(3)/mc L [facility] Red Blood Cell 3.15(L) 4.00 - 5.21 x10(6)/mc L [facility] Hemoglobin 10.2(L) 11.7 - 15.5 g/dL [facility] Hematocrit 30.3(L) 35.7 - 45.8 % [facility] Mean Cell Volume 96.2(H) 82.6 - 94.4 fL [facility] Mean Cell Hemoglobin 32.4(H) 27.1 - 32.0 pg [facility] Mean Cell Hemoglobin Concentration 33.7 31.7 - 35.0 g/dL [facility] Platelet 151 145 - 357 x10(3)/mc L [facility] RDW Standard Deviation 44.7 37.0 - 46.0 fL [facility] RDW coefficient of variation 12.8 11.5 - 14.1 % [facility] Mean Platelet Volume 9.4 7.6 - 12.9 fL [facility] NRBC% auto 0.0 % [facility] NRBC Absolute 0.000 0.000 - 0.000 x10(3)/mc L [facility] Blood 05/09/2023 4:00 AM EDT 05/09/2023 4:19 AM EDT Narrative Resulting Agency Comment Spec In Lab Klaudia Reid MD HEMATOLOGY OR DERABLES Performing Organization Address [facility] [place] [address] * Heparin (unfractionated) Level (05/09/2023 4:00 AM EDT) UF Heparin 0.47 IU/mL [facility] Comment: Heparin (anti-Xa) levels should be [...] MD HEMATOLOGY ORDERAB LES Performing Organization Address [facility] Co de Phone Number [facility] [place] [address] * (ABNORMAL) Comprehensive metabolic panel (non-fasting) (05/09/2023 4:00 AM EDT) Glucose 108 65 - 199 mg/dL [facility] Comment:Diabetes: >=200 mg/d L plus symptoms Blood Urea Nitrogen 31(H) 8 - 18 mg/dL [facility] Creatinine 1.03 0.70 - 1.20 mg/dL [facility] Sodium 137 135 - 145 mmol/L [facility] Potassium 4.4 3.5 - 5.0 mmol/L [facility] Comment: Please note: ??Patients with WBC >100,000 may have falsely elevated Potassium levels. ??For accurate Potassium quantification in these patients send serum separator tube (gold top) for subsequent determinations. ??Contact the Clinical Chemistry Laboratory if there are any questions. Chloride 102 98 - 107 mmol/L [facility] Carbon Dioxide 20(L) 22 - 31 mmol/L [facility] Anion Gap 15 5 - 15 mmol/L [facility] Calcium 9.3 8.5 - 10.5 mg/dL [facility] Protein, Total 6.6 6.1 - 8.0 g/dL [facility] Albumin 3.8 3.2 - 5.2 g/dL [facility] Aspartate Aminotransferase 32(H) 0 - 30 unit/L [facility] Alanine Aminotransferase 18 0 - 30 unit/L [facility] Alkaline Phosphatase 78 35 - 105 unit/L [facility] Bilirubin, Total 0.5 0.2 - 1.3 mg/dL [facility] Est Glomerular Filtration Rate 60 >=60 mL/min/1. 73 m?? [facility] [...] MD CHEMISTRY ORDERABL ES Performing Organization Address City/[facility] Co de Phone Number [facility] [place] [address] * (ABNORMAL) pro-Brain Natriuretic Peptide (05/08/2023 4:00 PM EDT) NT-proBNP 25,503(H) <=124 pg/mL [facility] Blood Venous Draw / Unknown 05/08/2023 4:00 PM EDT 05/08/2023 4:25 PM EDT Narrative Resulting Agency Comment Spec In Lab Juan Luis Gonzalez MD CHEMISTRY ORDERABLES Performing Organization Address [facility] Co de Phone Number [facility] [place] [address] * Magnesium (05/08/2023 4:00 PM EDT) Magnesium 0.82 0.69 - 1.07 mmol/L [facility] Blood 05/08/2023 4:00 PM EDT 05/08/2023 4:06 PM EDT Narrative Resulting Agency Comment Spec In Lab Enrique Chua MD CHEMISTRY ORDERABLES Performing Organization Address [facility] Co de Phone Number [facility] [place] [address] * Potassium (05/08/2023 4:00 PM EDT) Potassium 3.9 3.5 - 5.0 mmol/L [facility] [...] MD CHEMISTRY ORDERABL ES Performing Organization Address [facility] [place] [address] * Heparin (unfractionated) Level (05/08/2023 4:00 PM EDT) Pathologist [facility] UF Heparin 0.43 IU/mL [facility] Comment: Heparin (anti-Xa) levels should be [...] MD HEMATOLOGY ORDERAB LES Performing Organization Address [facility] [place] [address] * EKG 12 Lead (05/08/2023 3:51 PM EDT) Pathologist [facility] Ventricular rate 98 BPM MUSE SYSTEM Atrial Rate 98 BPM MUSE SYSTEM P-R Interval 150 ms MUSE SYSTEM QRS Duration 102 ms MUSE SYSTEM Q-T Interval 358 ms MUSE SYSTEM QTC Calculated (Bezet) 457 ms MUSE SYSTEM Calculated P Dugger 38 degrees MUSE SYSTEM Calculated R Dugger 48 degrees MUSE SYSTEM Calculated T Dugger -112 degrees MUSE SYSTEM INTERPRETATION Sinus rhythm with frequent and consecutive Premature ventricular and fusion complexes Septal infarct , age undetermined ST & T wave abnormality, consider anterolateral ischemia Abnormal ECG When compared with ECG of 09-NOV-2022 11:17, T wave inversion now evident in Anterolateral leads Confirmed by MD Harshil, Enrique Bell ([id number]) on 05/10/2023 8:11:46 AM MUSE SYSTEM 05/08/2023 3:51 PM EDT 05/10/2023 8:11 AM EDT Radha Hollins MD ECG ORDERABLES MUSE SYSTEM * (ABNORMAL) Differential, Automated (05/08/2023 11:38 AM EDT) Neutrophil % 71.3 % [facility] Neutrophil Absolute 2.91 1.70 - 6.10 x10(3)/mc L [facility] Lymph % 19.1 % [facility] Lymphocytes Abs 0.8(L) 0.9 - 3.2 x10(3)/mc L [facility] Monocyte % 9.0 % [facility] Monocyte Abs 0.4 0.3 - 0.9 x10(3)/mc L [facility] Eos % 0.2 % [facility] Eosinophils Abs 0.0 0.0 - 0.4 x10(3)/mc L [facility] Basophil % 0.2 % [facility] Baso Absolute 0.0 0.0 - 0.1 x10(3)/mc L [facility] [...] Absolute 0.01 0.00 - 0.04 x10(3)/mc L [facility] Blood 05/08/2023 11:3 8 AM EDT 05/08/2023 11:44 AM EDT Narrative Resulting Agency Comment Spec In Lab Lincoln Sal MD HEMATOLOGY ORDERA BLES [facility] [place] [address] * (ABNORMAL) Hemogram (05/08/2023 11:38 AM EDT) White Blood Cell 4.1 4.0 - 9.5 x10(3)/mc L [facility] Red Blood Cell 3.05(L) 4.00 - 5.21 x10(6)/mc L [facility] Hemoglobin 10.2(L) 11.7 - 15.5 g/dL [facility] Hematocrit 29.6(L) 35.7 - 45.8 % [facility] Mean Cell Volume 97.0(H) 82.6 - 94.4 fL [facility] Mean Cell Hemoglobin 33.4(H) 27.1 - 32.0 pg [facility] Mean Cell Hemoglobin Concentration 34.5 31.7 - 35.0 g/dL [facility] Platelet 136(L) 145 - 357 x10(3)/mc L [facility] RDW Standard Deviation 44.3 37.0 - 46.0 fL [facility] RDW coefficient of variation 12.6 11.5 - 14.1 % [facility] Mean Platelet Volume 9.4 7.6 - 12.9 fL [facility] NRBC% auto 0.0 % [facility] NRBC Absolute 0.000 0.000 - 0.000 x10(3)/ L [facility] Blood 05/08/2023 11:3 8 AM EDT 05/08/2023 11:44 AM EDT Narrative Resulting Agency Comment Spec In Lab Lincoln Sal MD HEMATOLOGY ORDERA BLES [facility] [place] [address] * TSH (05/08/2023 11:38 AM EDT) Thyroid Stimulating Hormone 1.27 0.27 - 4.20 mcIU/mL [facility] Comment: Reference Interval (mcIU/mL): Females: ??First Trimester: 0.23-3.88 ??Second Trimester: 0.22-3.90 ??Third Trimester: 0.44-4.66 Blood 05/08/2023 11:3 8 AM EDT 05/08/2023 11:44 AM EDT Narrative Resulting Agency Comment Spec In Lab Enrique Chua MD CHEMISTRY ORDERABLES Performing Organization Address City/[facility] Co de Phone Number [facility] [place] [address] * (ABNORMAL) Phosphorus (05/08/2023 11:38 AM EDT) Phosphorus 4.7(H) 2.5 - 4.5 mg/dL [facility] Blood 05/08/2023 11:3 8 AM EDT 05/08/2023 11:44 AM EDT Narrative Resulting Agency Comment Spec In Lab Enrique Chua MD CHEMISTRY ORDERABLES Performing Organization Address [facility] Co de Phone Number [facility] [place] [address] * Magnesium (05/08/2023 11:38 AM EDT) Magnesium 0.76 0.69 - 1.07 mmol/L [facility] Blood 05/08/2023 11:3 8 AM EDT 05/08/2023 11:44 AM EDT Narrative Resulting Agency Comment Spec In Lab Enrique Chua MD CHEMISTRY ORDERABLES Performing Organization Address [facility] Co de Phone Number [facility] [place] [address] * (ABNORMAL) Basic Metabolic Panel (non-fasting) (05/08/2023 11:38 AM EDT) Glucose 97 65 - 199 mg/dL [facility] Comment:Diabetes: >=200 mg/d L plus symptoms Blood Urea Nitrogen 27(H) 8 - 18 mg/dL [facility] Creatinine 1.02 0.70 - 1.20 mg/dL [facility] Sodium 139 135 - 145 mmol/L [facility] Potassium 4.2 3.5 - 5.0 mmol/L [facility] Comment: Please note: ??Patients with WBC >100,000 may have falsely elevated Potassium levels. ??For accurate Potassium quantification in these patients send serum separator tube (gold top) for subsequent determinations. ??Contact the Clinical Chemistry Laboratory if there are any questions. Chloride 105 98 - 107 mmol/L [facility] Carbon Dioxide 20(L) 22 - 31 mmol/L [facility] Anion Gap 14 5 - 15 mmol/L [facility] Calcium 9.4 8.5 - 10.5 mg/dL [facility] Est Glomerular Filtration Rate 60 >=60 mL/min/1. 73 m?? [facility] [...] MD CHEMISTRY ORDERABLES Performing Organization Address City/State/[facility] Co de Phone Number [facility] [place] [address] * ECHO COMPLETE (05/08/2023 11:02 AM EDT) EF 25 [employer] SYSTEM Anatomical Region Laterality Modality Cardiac Other 05/08/2023 10:0 3 AM EDT Narrative 05/08/2023 11:51 AM EDT ? Echocardiogram Report Name: PURNIMA THACKER ?Study Date: 05/08/2023 10:03 AMBP: 92/64 mmHg ? Patient Location: [facility]^CV29^A : 1955 ? Height: 155 cm ? Account: [id number] Age: 67 yrs ? Weight: 78 kg Gender: Female ?BSA: 1.8 m2 Ordering Physician: ENRIQUE CHUA Referring Physician: MARIO ALBERTO CHIN Performed By: CHUCKIE Canchola Reason For Study: SAVR Stenosis Exam Location: [facility]. Interpretation Summary -Left ventricle is [...] worsening stenosis. Mitral regurgitation is similar. Procedure Complete-[id number]. Satisfactory quality. There is normal sinus rhythm. [...] Study Date: 0:03 AMBP: 92/64 mmHg Patient Location:[facility]^CV29^A : 1955 Height: 155 cm Account: [id number] Age: 67 yrs Weight: 78 kg Gender: Female BSA: 1.8 m2 Ordering Physician: ENRIQUE CHUA Referring Physician: MARIO ALBERTO CHIN Performed By: CHUCKIE Canchola Reason For Study: SAVR Stenosis Exam Location: [facility]. Interpretation Summary -Left ventricle is [...] suggestsworsening stenosis. Mitral regurgitation is similar. Procedure Complete-[id number]. Satisfactory quality. There is normal sinus rhythm. 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 Mild coronary artery disease by [facility] 11/09/2022 Mixed connective tissue disease Other specified [...] by [facility] 11/09/2022 Stenosis of prosthetic aortic valve (Bovine [...] Routine 0836 (See Alternative - Provider: Gabino Clahoun RN) 0832 (See Alternative - Provider: Kia [...] Kia Gallego, VALDO - Reason: Patient/family refused) potassium chloride ER [...] Mckeon RN) 0828 (Given - Provider: Kia Gallego, VALDO) sodium [...] OR OPEN, Routine 0827 (Given - Provider: iKa Gallego, VALDO) ticagrelor (Brilinta) tablet 90 mg [...] Provider: Kia Gallego, VALDO)2012 (Given - Provider: Faivan Mckeon RN) 0827 (Given - Provider: Kia [...] Routine documented in this encounter Care Teams Workday Senior Associate Relationship Specialty Start Date End Date Magdalena Acosta MD [address] [place] [address] PCP - General Family Medicine 02/05/23 documented as of this encounter
--- OUTSIDE RECORDS SUMMARY | 2024-06-01 14:15 | XMS_ITS | Encounter Summary ---
Author Organization [facility] [place] [address] Care Team Providers Care Egg Sorter Name Role Phone Magdalena Acosta MD Primary Care Provider [phone] Encounter Details Date Type Department Care Team (Late st Contact Info) Description 05/08/2023 [place] [phone] Luis Felipe Ott MD [facility] [place] [address] Social History Tobacco Use Types Packs/Day Years [...] 0426 Referring Provider: Nitesh Baltazar Patient Location: [facility] Presenting Symptoms per OSH: 67 year [...] diuresis with IV furosemide 20 x 1 ([id number] at rheumatology appointment), SpO2 85% on RA -> 95% on 2L NC, HR 120s. Examination significant for decreased breath sounds at the bases. Pertinent Diagnostic Findings: CBC - Hgb 10.5 CMP - Cr 1.1 BNP 88428 HsTrop 1358 Lactate 1.6 D-dimer 1183, CTPE pending CXR demonstrated pulmonary vascular congestion US showed bilateral b lines Bedside echo reportedly similar to prior TTE for LV function OSH Interventions: ASA 324 Heparin gtt Plan: Transfer to [facility] Above recommendations/plans are based on my conversation with the referring provider. I have not personally interviewed or examined this patient. Luis Felipe Ott MD Automotive Electrical Fitter Received a call from provider emergently at 715am. Mentating well and BP 87/53. HR 108 and diursingwell. They were about to start phenylephrine which I stressed was not a good option given concern for severe and increasing afterload. She is warm on exam, mentating and urinating and we do not need to amrit a BP if those things remain stable. Nico Segura, PGY-6 Automotive Electrical Fitter [id number] documented in this encounter Plan of Treatment Upcoming Encounters Date Type Department Care Team (Late st Contact Info) Description 06/05/2024 2:00 PM EST Hospital Encounter [facility] [place] [address] Makrel Borjas MD [facility] [place] [address] 06/05/2024 2:00 PM EST - 06/05/2024 3:00 PM EST Surgery Outpatient Surgery Center [facility] [place] [address] Markel Borjas MD [facility] DR [place] [address] (OSC MSURG) BONE MARROW BIOPSY AND ASPIRATION; DIAGNOSTIC (WRVU 1.44) 06/23/2024 2:00 PM EST Office Visit [place] [address] Markel Borjas MD [facility] DR [place] [address] 11/02/2024 12:00 PM EDT Appointment Pulmonology at [address] 11/02/2024 1:00 PM EDT Office Visit Rheumatology at [address] Magdalena Peralta MD [facility] [place] [address] 03/01/2025 4:15 PM EDT Office Visit Dermatology at [address] [place] [phone] Marek Bonilla MD [address], [place] [address] Scheduled Procedures Name Priority Associated Diagnoses Date/Ti me (OSC MSURG) BONE MARROW BIOPSY AND ASPIRATION; DIAGNOSTIC (WRVU 1.44) Anemia, in pt with longstanding neutropenia 06/05/2024 2:00 PM EST documented as of this encounter Visit Diagnoses Not on filedocumented in this encounter Care Teams Egg Sorter Relationship Specialty Start Date End Date Magdalena Acosta MD [address] [place] [address] PCP - General Family Medicine 02/05/23 documented as of this encounter
--- OUTSIDE RECORDS SUMMARY | 2024-06-01 14:16 | XMS_ITS | Encounter Summary ---
[place] [address] Care Team Providers Care Head School Custodian Name Role Phone Magdalena Acosta MD Primary Care Provider [phone] Reason for Visit * Reason Comments Suture / Staple Removal Encounter Details Date Type Department Care Team (Late st Contact Info) Description 02/16/2023 10:00 AM EDT Office Visit Dermatology at [place] [address] [place] [phone] Marek Bonilla MD [address] [facility], [address] DERMATOLOGY [place], [place] [phone] Visit for suture removal Social History Tobacco [...] PM EST Hospital Encounter [facility] [place] [address] Markel Borjas MD [facility] DR [place] [address] 06/05/2024 2:00 PM EST - 06/05/2024 3:00 PM EST Surgery [place]patient [place] [phone] Markel Borjas MD [facility] DR [place] [address] (OSC MSURG) BONE MARROW BIOPSY AND ASPIRATION; DIAGNOSTIC (WRVU 1.44) 06/23/2024 2:00 PM EST Office Visit [place] [phone] Markel Borjas MD [facility] DR [place] [address] 11/02/2024 12:00 PM EDT [place] [phone] 11/02/2024 1:00 PM EDT [place] [address] Magdalena Peralta MD [facility] [place] [address] 03/01/2025 4:15 PM EDT Office Visit Dermatology at [address] [phone] Marek Bonilla MD [address], [place] [address] Scheduled Procedures Name Priority Associated Diagnoses Date/Ti me (OSC MSURG) BONE MARROW BIOPSY AND ASPIRATION; DIAGNOSTIC (WRVU 1.44) Anemia, in pt with longstanding neutropenia 06/05/2024 2:00 PM EST documented as of this encounter Visit Diagnoses Diagnosis Visit for suture removal Encounter for removal of sutures documented in this encounter Care Teams Head School Custodian Relationship Specialty Start Date End Date Magdalena Acosta MD [address] [place] [address] PCP - General Family Medicine 02/05/23 documented as of this encounter
--- OUTSIDE RECORDS SUMMARY | 2024-06-01 14:16 | XMS_ITS | Encounter Summary ---
Author Organization [facility] [place] [address] Care Team Providers Care Radio Survey Worker Name Role Phone Junaid, Deborah Shields APRN Primary Care Provider [phone] Encounter Details Date Type Department Care Team [...] PM EST Hospital Encounter Outpatient [place] [phone] Markel Borjas MD [facility] [address] [place] [address] 06/05/2024 2:00 PM EST - 06/05/2024 3:00 PM EST Surgery Outpatient [place] [phone] Markel Borjas MD [facility] [place] [address] (OSC MSURG) BONE MARROW BIOPSY AND ASPIRATION; DIAGNOSTIC (WRVU 1.44) 06/23/2024 2:00 PM EST Office Visit Hematology and Oncology at [place] [phone] Markel Borjas MD [facility] DR HEMATOLOGY [place] [address] 11/02/2024 12:00 PM EDT [place] [address] 11/02/2024 1:00 PM EDT Office Visit Rheumatology at [place] [address] Magdalena Peralta MD [facility] [place] [address] 03/01/2025 4:15 PM EDT Office Visit Dermatology at [place] [address] [place] [phone] Marek Bonilla MD [address], QU[address] A DERMATOLOGY [place], [place] [phone] Scheduled Procedures Name Priority Associated Diagnoses Date/Ti me (OSC MSURG) BONE MARROW BIOPSY AND ASPIRATION; DIAGNOSTIC (WRVU 1.44) Anemia, in pt with longstanding neutropenia 06/05/2024 2:00 PM EST documented as of this encounter Visit Diagnoses Not on filedocumented in this encounter Care Teams Radio Survey Worker Relationship Specialty Start Date End Date Deborah Quiroga, RN ACCESS PCP - General Family Medicine 03/24/16 02/04/23 documented as of this encounter
--- OUTSIDE RECORDS SUMMARY | 2024-06-01 14:16 | XMS_ITS | Encounter Summary ---
Author Organization [facility] [place] [address] Care Team Providers Care Claim Analyst Name Role Phone Deborah Quiroga APRN Primary Care Provider [phone] Reason for Referral * Consultation (Routine) - Closed Specialty Diagnoses / Procedures Referred By Crispin maxwell Referred To Contact Neurology Diagnoses Polyneuropathy Deborah Quiroga APRN [address] [place] [address] [facility] Neurology [address] [place] [phone] Referral ID Status Reason Start Date Expiration Date V isits Requested Visits Authorized [id number] Closed Consult, Test & Treat 10/29/2022 10/29/2023 1 1 Encounter Details Date Type Department Care Team (Latest Contact Info) Description 10/29/2022 Transcribe Orders eDH Incoming Referrals [phone] Deborah Quiroga APRN [address] [place] [address] Polyneuropathy (Primary Dx) Social History [...] PM EST Hospital Encounter [place] [phone] Markel Borjas MD [facility] DR HEMATOLOGY [place] [address] 06/05/2024 2:00 PM EST - 06/05/2024 3:00 PM EST Surgery [place] [phone] Markel Borjas MD [facility] DR HEMATOLOGY [place] [address] (OSC MSURG) BONE MARROW BIOPSY AND ASPIRATION; DIAGNOSTIC (WRVU 1.44) 06/23/2024 2:00 PM EST Office Visit Hematology [place] [address] Markel Borjas MD [facility] DR HEMATOLOGY [place] [address] 11/02/2024 12:00 PM EDT Appointment [place] [address] 11/02/2024 1:00 PM EDT Office [place] [phone] Magdalena Peralta MD [facility] [place] [address] 03/01/2025 4:15 PM EDT Office Visit Dermatology at [place] [address] [place] [address] Marek Bonilla MD [address] [place] [address] Scheduled Procedures Name Priority Associated Diagnoses Date/Ti [...] neuropathy documented in this encounter Care Teams Claim Analyst Relationship Specialty Start Date End Date Deborah Quiroga APRN PCP - General Family Medicine 03/24/16 02/04/23 documented as of this encounter
--- OUTSIDE RECORDS SUMMARY | 2024-06-01 14:16 | XMS_ITS | Encounter Summary ---
Author Organization [facility] [place] [address] Care Team Providers Care Qa Architect Name Role Phone Magdalena Acosta MD Primary Care Provider [phone] Encounter Details Date Type Department Care Team [...] PM EST Hospital Encounter [place]patient [place] [phone] Markel Borjas MD [facility] DR HEMATOLOGY [place] [address] 06/05/2024 2:00 PM EST - 06/05/2024 3:00 PM EST Surgery [place] [phone] Markel Borjas MD [facility] DR HEMATOLOGY [place] [address] (OSC MSURG) BONE MARROW BIOPSY AND ASPIRATION; DIAGNOSTIC (WRVU 1.44) 06/23/2024 2:00 PM EST Office Visit Hematology and Oncology at [place] [phone] Markel Borjas MD [facility] [place] [address] 11/02/2024 12:00 PM EDT Appointment Pulmonology at [place] [address] 11/02/2024 1:00 PM EDT Office Visit Rheumatology at [place] [address] Magdalena Peralta MD [facility] [place] [address] 03/01/2025 4:15 PM EDT Office Visit Dermatology at [place] [address] [place] [address] Marek Bonilla MD [address], [address] DERMATOLOGY [place], [place] [address] Scheduled Procedures Name Priority Associated Diagnoses Date/Ti me (OSC MSURG) BONE MARROW BIOPSY AND ASPIRATION; DIAGNOSTIC (WRVU 1.44) Anemia, in pt with longstanding neutropenia 06/05/2024 2:00 PM EST documented as of this encounter Visit Diagnoses Not on filedocumented in this encounter Care Teams Qa Architect Relationship Specialty Start Date End Date Magdalena Acosta MD [address] [place] [address] PCP - General Family Medicine 02/05/23 documented as of this encounter
--- OUTSIDE RECORDS SUMMARY | 2024-06-01 14:16 | XMS_ITS | Encounter Summary ---
Author Organization [place] [address] Care Team Providers Care Milk Pasteurizer Name Role Phone Magdalena Acosta MD Primary Care Provider [phone] Reason for Referral * Consultation (Routine) - Closed Specialty Diagnoses / Procedures Referred By Contac t Referred To Contact Rheumatology Diagnoses Weakness Kyra Haas MD [facility] [address] [place] [address] [facility] Rheumatology [address] [place] [phone] Referral ID Status Reason Start Date Expiration Date V isits Requested Visits Authorized [id number] Closed Consult, Test & Treat PCP Updated and/or Approved 02/25/2023 02/25/2024 6 6 Encounter Details Date Type Department Care Team (Late st Contact Info) Description 02/25/2023 Transcribe Orders eDH Incoming Referrals [phone] Magdalena Acosta MD [address] [place] [address] Weakness Social History Tobacco Use [...] PM EST Hospital Encounter [place]patient [place] [phone] Markel Borjas MD [facility] DR HEMATOLOGY [place] [address] 06/05/2024 2:00 PM EST - 06/05/2024 3:00 PM EST Surgery [place] [phone] Markel Borjas MD [facility] DR HEMAT[place] [address] (OSC MSURG) BONE MARROW BIOPSY AND ASPIRATION; DIAGNOSTIC (WRVU 1.44) 06/23/2024 2:00 PM EST Office Visit Hematology [place] [phone] Markel Borjas MD [facility] DR HEMAT[place]Y [place] [address] 11/02/2024 12:00 PM EDT Appointment Pulmonology at [place] [phone] 11/02/2024 1:00 PM EDT Office [place] [address] Magdalena Peralta MD [facility] [place] [address] 03/01/2025 4:15 PM EDT Office Visit Dermatology at [place] [address] [place] [phone] Marek Bonilla MD [address], [place] [address] Scheduled Procedures Name Priority Associated Diagnoses Date/Ti [...] fatigue documented in this encounter Care Teams Milk Pasteurizer Relationship Specialty Start Date End Date Magdalena Acosta MD [address] [place] [address] PCP - General Family Medicine 02/05/23 documented as of this encounter
--- OUTSIDE RECORDS SUMMARY | 2024-06-01 14:16 | XMS_ITS | Encounter Summary ---
Author Organization [facility] Address [facility] [place] [address] Care Team Providers Care Perinatal Nurse Name Role Phone Magdalena Acosta MD Primary Care Provider [phone] Reason for Visit * Consultation (Routine) - Closed Specialty Diagnoses / Procedures Referred By Contac t Referred To Contact Rheumatology Diagnoses Weakness Kyra Haas MD [facility] [address] [place] [address] [facility] Rheumatology [address] [place] [phone] Referral ID Status Reason Start Date Expiration Date V isits Requested Visits Authorized [id number] Closed Consult, Test & Treat PCP Updated and/or Approved 02/25/2023 02/25/2024 6 6 Encounter Details Date Type Department Care Team (Late st Contact Info) Description 03/18/2023 1:00 PM EDT Office [place] [address] Kia Viramontes DO [facility] [place] [address] Magdalena Peralta MD [facility] [place] [address] Positive FRANCISCO (antinuclear antibody) Social [...] 1:5120 speckled VIC negative Myositis panel with LUNCHROOM ATTENDANT ab 149.1 (positive) Anti U1RNP IgG 119 [...] a chair without assistance of upper extremities. Director Career strength 3+/5 bilaterally; otherwise large muscle groups [...] to risk of retinal toxicity with exterminator Plaquenil use, which she already does. Recommendations: #mixed connective tissue disease Start hydroxychloroquine 200 mg qd Labs today: repeat FRANCISCO, dsDNA, complements, CBC, CMP, CK, ESR, CRP Follow up 1 month The patient was seen and discussed with Dr. Wander Peralta MD Rheumatology Fellow Pager: [phone] CC: Kyra Haas * Kia Viramontes DO [...] PM EST Hospital Encounter Outpatient Surgery Center [place] [phone] Markel Borjas MD [facility] HEMATOLOGY [place] [address] 06/05/2024 2:00 PM EST - 06/05/2024 3:00 PM EST Surgery [place] [address] Markel Borjas MD [facility] DR HEMATOLOGY [place] [address] (OSC MSURG) BONE MARROW BIOPSY AND ASPIRATION; DIAGNOSTIC (WRVU 1.44) 06/23/2024 2:00 PM EST Office Visit [place] [phone] Markel Borjas MD [facility] HEMATOLOGY [place] [address] 11/02/2024 12:00 PM EDT Appointment Pulmonology at [place] [phone] 11/02/2024 1:00 PM EDT Office Visit Rheumatology at [place] [phone] Magdalena Peralta MD [facility] [place] [address] 03/01/2025 4:15 PM EDT Office Visit Dermatology at [place] [address] [place] [address] Marek Bonilla MD [address] [place] DERMATOLOGY [place], [place] [address] Scheduled Procedures Name Priority Associated Diagnoses Date/Ti [...] [facility] Creatinine 0.99 0.70 - 1.20 mg/dL [facility] Sodium 141 135 - 145 mmol/L [facility] Potassium 4.5 3.5 - 5.0 mmol/L [...] [facility] Carbon Dioxide 24 22 - 31 mmol/L [facility] Anion Gap 11 5 - 15 mmol/L [facility] Calcium 10.0 8.5 - 10.5 mg/dL [facility] Protein, Total 7.3 6.1 - 8.0 g/dL [facility] Albumin 4.3 3.2 - 5.2 g/dL [facility] Aspartate Aminotransferase 26 0 - 30 unit/L [facility] Alanine Aminotransferase 11 0 - 30 unit/L [facility] Alkaline Phosphatase 91 35 - 105 unit/L [facility] Bilirubin, Total 0.4 0.2 - 1.3 mg/dL [facility] Est Glomerular Filtration Rate 62 >=60 [...] CHEMISTRY ORDERABL ES Performing Organization Address City/State/[facility] Co de Phone Number [facility] [place] [address] * (ABNORMAL) FRANCISCO Ab by IFA (03/18/2023 2:14 PM EDT) FRANCISCO Ab Screen Test ? Result ?Flag ??Unit ??RefValue Antinuclear Ab, HEp-2 ?Positive 1:2560 ??@ ?<1:80 (Negative) ??Substrate, S ? ADDITIONAL INFORMATION --------- ?Method: Immunofluorescence using HEp-2 cellular substrate. ??FRANCISCO Titer: ? 1:2560 ??FRANCISCO Pattern: ? Speckled ?Test Performed by: ?[facility] ?[address] [place] [address] ?Blue Line Trimmer: Raymond Chaudhry M.D. Ph.D.; IA# [id number] (A) [facility] Blood 03/18/2023 2:14 PM EDT 03/18/2023 3:02 PM EDT Narrative Resulting Agency Comment Spec In Lab Kia Viramontes DO CHEMISTRY ORDERABL ES Performing Organization Address [facility] Co de Phone Number [facility] [place] [address] * DNA Antibody (Double-Stranded) (03/18/2023 2:14 PM EDT) Pathologist [facility] dsDNA Ab <0.6 <=15.0 IU/mL [facility] Comment: <10 negative 10-15 equivocal >15 positive This dsDNA antibody result was generated using a fluoroenzyme immunoassay on the Plenummediaa 250 analyzer. This quantitative test is designed [...] ORDER JODIE Performing Organization Address [facility] Co de Phone Number [facility] [place] [address] * CK (03/18/2023 2:14 PM EDT) Creatine Kinase 38 0 - 160 unit/L [facility] Blood 03/18/2023 2:14 PM EDT 03/18/2023 2:24 PM EDT Narrative Resulting Agency Comment Spec In Lab Kia D Wander DO CHEMISTRY ORDERABL ES Performing Organization Address [facility] de Phone Number [facility] [place] [address] * C4 Complement (03/18/2023 2:14 PM EDT) Complement C4 30 10 - 40 mg/dL [facility] Blood 03/18/2023 2:14 PM EDT 03/18/2023 2:24 PM EDT Narrative Resulting Agency Comment Spec In Lab Kia D Wander DO CHEMISTRY ORDERABL ES Performing Organization Address [facility] de Phone Number [facility] [place] [address] * C3 Complement (03/18/2023 2:14 PM EDT) Complement C3 142 90 - 180 mg/dL [facility] Blood 03/18/2023 2:14 PM EDT 03/18/2023 2:24 PM EDT Narrative Resulting Agency Comment Spec In Lab Kia D Wander DO CHEMISTRY ORDERABL ES Performing Organization Address [facility] de Phone Number [facility] [place] [address] * CRP, acute inflammation (03/18/2023 2:14 PM EDT) C-Reactive Protein 3.0 <=4.9 mg/L [facility] Blood 03/18/2023 2:14 PM EDT 03/18/2023 2:24 PM EDT Narrative Resulting Agency Comment Spec In Lab Kia D Wander DO CHEMISTRY ORDERABL ES [facility] [place] [address] * (ABNORMAL) Sedimentation rate (03/18/2023 2:14 PM EDT) Sedimentation Rate Automated 68(H) 2 - 39 mm/hr [facility] Comment: Effective July 12, 2019 new capillary photometric technology has resulted in a change in reference ranges. It is recommended that each ESR result be reviewed with its own age appropriate reference range. Blood 03/18/2023 2:14 PM EDT 03/18/2023 2:24 PM EDT Narrative Resulting Agency Comment Spec In Lab Kia Viramontes DO HEMATOLOGY ORDERAB LES [facility] [place] [address] documented in this encounter Visit Diagnoses Diagnosis Positive FRANCISCO (antinuclear antibody) Other and unspecified nonspecific immunological findings documented in this encounter Care Teams Perinatal Nurse Relationship Specialty Start Date End Date Magdalena Acosta MD [address] [place] [address] PCP - General Family Medicine 02/05/23 documented as of this encounter
--- OUTSIDE RECORDS SUMMARY | 2024-06-01 14:16 | XMS_ITS | Encounter Summary ---
Author Organization [facility] [address] Care Team Providers Care Kitchen Supervisor Name Role Phone Junaid, Deborah Shields APRN Primary Care Provider [phone] Encounter Details Date Type Department Care Team [...] PM EST Hospital Encounter [place] [phone] Markel Borjas MD [facility] [address] [place] [address] 06/05/2024 2:00 PM EST - 06/05/2024 3:00 PM EST Surgery [place] [phone] Markel Borjas MD [facility] [address] [place] [address] (OSC MSURG) BONE MARROW BIOPSY AND ASPIRATION; DIAGNOSTIC (WRVU 1.44) 06/23/2024 2:00 PM EST Office Visit Hematology and Oncology at [place] [phone] Markel Borjas MD [facility] [address] [place] [address] 11/02/2024 12:00 PM EDT Appointment [place] [address] 11/02/2024 1:00 PM EDT Office Visit Rheumatology at [place] [address] Magdalena Peralta MD [facility] [place] [address] 03/01/2025 4:15 PM EDT Office Visit Dermatology at [place] [address] [place] [phone] Marek Bonilla MD [address] DERMATOLOGY [place], [place] [address] Scheduled Procedures Name Priority Associated Diagnoses Date/Ti me (OSC MSURG) BONE MARROW BIOPSY AND ASPIRATION; DIAGNOSTIC (WRVU 1.44) Anemia, in pt with longstanding neutropenia 06/05/2024 2:00 PM EST documented as of this encounter Visit Diagnoses Not on filedocumented in this encounter Care Teams Kitchen Supervisor Relationship Specialty Start Date End Date Deborah Quiroga, REFERRAL AGENT PCP - General Family Medicine 03/24/16 02/04/23 documented as of this encounter
--- OUTSIDE RECORDS SUMMARY | 2024-06-01 14:16 | XMS_ITS | Encounter Summary ---
Author Organization [facility] Address [facility] [place] [address] Care Team Providers Care Beehive Kiln Charcoal Burner Name Role Phone Deborah Quiroga APRN Primary Care Provider [phone] Encounter Details Date Type Department Care Team (Latest Contact Info) Description 07/03/2022 1:36 PM EST - 07/03/2022 11:59 PM EST Hospital Encounter Hematology [place] [address] Discharge Disposition: Home Social History Tobacco Use [...] experiencing pain -05/11.). 30 tablet 5 09/25/2016 dilTIAZem CD (Cardizem CD) 180 mg Capsule, [...] PM EST Hospital Encounter [place] [address] Markel Borjas MD [facility] DR HEMATOLOGY [place] [address] 06/05/2024 2:00 PM EST - 06/05/2024 3:00 PM EST Surgery [place] [address] Markel Borjas MD [facility] DR HEMATOLOGY [place] [address] (OSC MSURG) BONE MARROW BIOPSY AND ASPIRATION; DIAGNOSTIC (WRVU 1.44) 06/23/2024 2:00 PM EST Office Visit Hematology [place] [address] Markel Borjas MD [facility] DR HEMATOLOGY [place] [address] 11/02/2024 12:00 PM EDT Appointment [place] [phone] 11/02/2024 1:00 PM EDT Office [place] [address] Magdalena Peralta MD [facility] DR [place] [address] 03/01/2025 4:15 PM EDT Office Visit Dermatology at [place] [address] [address] Marek Bonilla MD [address], [place] [address] Scheduled Procedures Name Priority Associated [...] ES [facility] [place] [address] * Vitamin B12 (07/03/2022 1:59 PM EST) Vitamin B12 449 232 - 1,245 pg/mL [facility] Blood Venous Draw / Unknown 07/03/2022 1:59 PM EST 07/03/2022 2:13 PM EST Narrative Resulting Agency Comment Spec In Lab Markel Borjas MD CHEMISTRY ORDERABL ES [facility] [place] [address] documented in this encounter Visit Diagnoses Not on filedocumented in this encounter Care Teams Beehive Kiln Charcoal Burner Relationship Specialty Start Date End Date Deborah Quiroga APRN PCP - General Family Medicine 03/24/16 02/04/23 documented as of this encounter
--- OUTSIDE RECORDS SUMMARY | 2024-06-01 14:16 | XMS_ITS | Encounter Summary ---
Author Organization [facility] Address [facility] [place] [address] Care Team Providers Care Veneer Cutter Name Role Phone Ashley Quirogan [place] ANURAG Primary Care Provider [phone] Encounter Details Date Type Department Care Team (Late st Contact Info) Description 01/14/2023 Refill Dermatology at [address] [address] Lupe Connor RN Social History [...] She would like the medication called into [facility] in [facility]. Discussed with Dr. Bonilla and he has approved refill of the Doxycycline 50 mg take one capsule by mouth daily in the evenings dispense 30 capsules with 2 refills. Patient notified. documented in this encounter Plan of Treatment Upcoming Encounters Date Type Department Care Team (Late st Contact Info) Description 06/05/2024 2:00 PM EST Hospital Encounter [place]patient [place] [address] Markel Borjas MD [facility] HEMATOLOGY [place] [address] 06/05/2024 2:00 PM EST - 06/05/2024 3:00 PM EST Surgery [place] [address] Markel Borjas MD [facility] DR HEMATOLOGY [place] [address] (OSC MSURG) BONE MARROW BIOPSY AND ASPIRATION; DIAGNOSTIC (WRVU 1.44) 06/23/2024 2:00 PM EST Office Visit Hematology [place] [address] Markel Borjas MD [facility] DR HEMATOLOGY [place] [address] 11/02/2024 12:00 PM EDT Appointment [place] [address] 11/02/2024 1:00 PM EDT Office Visit [place] [phone] Magdalena Peralta MD [facility] [place] [address] 03/01/2025 4:15 PM EDT Office Visit Dermatology at [place] [address] [place] [address] Marek Bonilla MD [address] [place] [address] Scheduled Procedures Name Priority Associated Diagnoses Date/Ti me (OSC MSURG) BONE MARROW BIOPSY AND ASPIRATION; DIAGNOSTIC (WRVU 1.44) Anemia, in pt with longstanding neutropenia 06/05/2024 2:00 PM EST documented as of this encounter Visit Diagnoses Not on filedocumented in this encounter Care Teams Veneer Cutter Relationship Specialty Start Date End Date Deborah Quiroga, CORPORATE TECHNICAL RECRUITER PCP - General Family Medicine 03/24/16 02/04/23 documented as of this encounter
--- OUTSIDE RECORDS SUMMARY | 2024-06-01 14:16 | XMS_ITS | Encounter Summary ---
Author Organization Formerly [facility] Erika lópez[place]yl[place] [address] Care Team Providers Care Geriatric Case Manager Name Role Phone Ashley Quirogazac Shields APRN Primary Care Provider [phone] Encounter Details Date Type Department Care Team (Late st Contact Info) Description 11/02/2022 [place] [phone] Emily Lyons PA [facility] [place] [address] Aortic valve stenosis, etiology of cardiac valve [...] PM EST Hospital Encounter Outpatient [place] [phone] Markel Borjas MD [facility] [place] [address] 06/05/2024 2:00 PM EST - 06/05/2024 3:00 PM EST Surgery Outpatient [place] [address] Markel Borjas MD [facility] DR HEMATOLOGY [place] [address] (OSC MSURG) BONE MARROW BIOPSY AND ASPIRATION; DIAGNOSTIC (WRVU 1.44) 06/23/2024 2:00 PM EST Office Visit Hematology and Oncology at [address] Markel Borjas MD [facility] DR HEMATOLOGY [place] [address] 11/02/2024 12:00 PM EDT Appointment Pulmonology at [place] [address] 11/02/2024 1:00 PM EDT Office Visit Rheumatology at [place] [address] Magdalena Peralta MD [facility] [place] [address] 03/01/2025 4:15 PM EDT Office Visit Dermatology at [address] [place] [address] Marek Bonilla MD [address] [place] [address] Scheduled Procedures Name Priority Associated Diagnoses Date/Ti me (OSC MSURG) BONE MARROW BIOPSY AND ASPIRATION; DIAGNOSTIC (WRVU 1.44) Anemia, in pt with longstanding neutropenia 06/05/2024 2:00 PM EST documented as of this encounter Visit Diagnoses Diagnosis Aortic valve stenosis, etiology of cardiac valve disease unspecified documented in this encounter Care Teams Geriatric Case Manager Relationship Specialty Start Date End Date Deborah Quiroga APRN PCP - General Family Medicine 03/24/16 02/04/23 documented as of this encounter
--- OUTSIDE RECORDS SUMMARY | 2024-06-01 14:16 | XMS_ITS | Encounter Summary ---
[place] [address] Care Team Providers Care Communications Electrician Supervisor Name Role Phone Junaid Deborah Shields APRN Primary Care Provider [phone] Reason for Visit * Reason Comments Annual Exam Encounter Details Date Type Department Care Team (Late st Contact Info) Description 01/09/2022 3:15 PM EDT Office Visit Dermatology at [address] [phone] Marek Bonilla MD [address] [facility] [place] DERMATOLOGY [place], [place] [id number] Rosacea Social History Tobacco Use Types Packs/Day [...] cutaneous and ocular 2. Previously told by suction plate carrier cleaner that she had corneal tears from her [...] refills. We will call this into her [facility] pharmacy in [place] 3. Continue metronidazole 0.75% gel applying every [...] PM EST Hospital Encounter [place]patient [place] [address] Markel Borjas MD [facility] [place] [address] 06/05/2024 2:00 PM EST - 06/05/2024 3:00 PM EST Surgery [place]patient [place] [address] Markel Borjas MD [facility] [place] [address] (OSC MSURG) BONE MARROW BIOPSY AND ASPIRATION; DIAGNOSTIC (WRVU 1.44) 06/23/2024 2:00 PM EST Office Visit Hematology [place] [address] Markel Borjas MD [facility] [place] [address] 11/02/2024 12:00 PM EDT Appointment Pulmonology at [place] [phone] 11/02/2024 1:00 PM EDT Office [place] [address] Magdalena Peralta MD [facility] DR RHEUMATOLOGY DEPT [place], [place] [phone] 03/01/2025 4:15 PM EDT Office Visit Dermatology at [place] [address] [place] [phone] Marek Bonilla MD [address], [place] [address] Scheduled Procedures Name Priority Associated Diagnoses Date/Ti me (OSC MSURG) BONE MARROW BIOPSY AND ASPIRATION; DIAGNOSTIC (WRVU 1.44) Anemia, in pt with longstanding neutropenia 06/05/2024 2:00 PM EST documented as of this encounter Visit Diagnoses Diagnosis Rosacea documented in this encounter Care Teams Communications Electrician Supervisor Relationship Specialty Start Date End Date Deborah Quiroga APRN PCP - General Family Medicine 03/24/16 02/04/23 documented as of this encounter
--- OUTSIDE RECORDS SUMMARY | 2024-06-01 14:16 | XMS_ITS | Encounter Summary ---
Author Organization [facility] [place] [address] Care Team Providers Care Electronic Gluer Name Role Phone Deborah Quiroga APRN Primary Care Provider [phone] Encounter Details Date Type Department Care Team (Late st Contact Info) Description 11/09/2022 11:30 AM EDT - 11/09/2022 12:30 PM EDT [place] [address] Nitesh Escobedo MD [facility] [place] [address] CARDIAC CATHETERIZATION Social History Tobacco Use Types [...] Center 02/05/2023 2:30 PM Marek Bonilla MD [facility] New Medications to be Picked Up None For questions regarding this document or issues relating to this hospitalization on the Medical Service, please contact your inpatient physician through the [facility] In Store Marketing Associate . Issues afterhours and on weekends will be handled by the Hospitalist staff on-call. * Attachments The following attachments cannot be sent through Care Everywhere. * Coronary Angiogram: Post-op (Taiwanese) * Right Heart Catheterization: Pulmonary Artery Catheterization: Post-op (Taiwanese) documented in this encounter Medications at Time [...] experiencing pain -05/11.). 30 tablet 5 09/25/2016 meloxicam (Mobic) 15 mg tablet Take 15 [...] MD - 11/09/2022 11:20 AM EDT . [facility] Interventional Cardiology Adult Pre-Procedure H&P Update: Cardiac Catheterization Purnima Thacker [id number] Chief Complaint: BONILLA HPI: Purnima Thacker [...] Marrero MD Interventional Cardiology 11/09/22 11:43 AM [facility] Pager: [phone] documented in this encounter Plan of Treatment Upcoming Encounters Date Type Department Care Team (Late st Contact Info) Description 06/05/2024 2:00 PM EST Hospital Encounter [place]patient [place] [address] Markel Borjas MD [facility] DR HEMATOLOGY [place] [address] 06/05/2024 2:00 PM EST - 06/05/2024 3:00 PM EST Surgery Outpatient Surgery Center [place] [phone] Markel Borjas MD [facility] DR HEMATOLOGY [place] [address] (OSC MSURG) BONE MARROW BIOPSY AND ASPIRATION; DIAGNOSTIC (WRVU 1.44) 06/23/2024 2:00 PM EST Office Visit Hematology and Oncology at [address] Markel Borjas MD [facility] DR HEMATOLOGY [place] [address] 11/02/2024 12:00 PM EDT Appointment Pulmonology at [place] [address] 11/02/2024 1:00 PM EDT Office Visit Rheumatology at [place] [address] Magdalena Peralta MD [facility] [place] [address] 03/01/2025 4:15 PM EDT Office Visit Dermatology at [address] [place] [phone] Marek Bonilla MD [address], [place] [address] Scheduled Procedures Name Priority Associated Diagnoses Date/Ti me (OSC MSURG) BONE MARROW BIOPSY AND ASPIRATION; DIAGNOSTIC (WRVU 1.44) Anemia, in pt with longstanding neutropenia 06/05/2024 2:00 PM EST documented as of this encounter Procedures Procedure Name Priority Date/Time Associated Diagnosis Comments CARDIAC CATHETERIZATION Routine 04/10/20 23 1:05 PM EDT Aortic valve stenosis, etiology of cardiac valve disease unspecified Cath Plmt Left Heart Cath & Arts W/Inj & Angio Img S&I ([id number]) 11/09/2022 11:51 AM EDT Aortic valve stenosis, etiology of cardiac valve disease unspecified EKG 12-LEAD Routine 11/09/2022 11:17 AM EDT Aortic valve stenosis, etiology of cardiac valve disease unspecified documented in this encounter Results * CARDIAC CATHETERIZATION (11/09/2022 1:05 PM EDT) Anatomical Region Laterality Modality Other Narrative 11/09/2022 2:01 PM EDT ?[facility] ? Cardiac Catheterization/Intervention Report ? Patient Name: Purnima Thacker. ? Procedure Date: 11/09/2022 ? A #: [id number] ? Primary Physician: Nitesh Escobedo ? Case #: [id number] ? File Name: [id number] ? Catheterization Order Number: [id number] ? [facility] ? Final Report [place], [place] ? Patient Name: ? Purnima M. Kirstie ? ID#: ?[id number] ? : ?1955 ? Procedure Date: ? [...] angiography, right heart ?catheterization and oximetry. ? Arabella BeaversD. ? Electronically Signed by: Nitesh Escobedo M.D. [...] (Bezet) 457 ms MUSE SYSTEM Calculated P Loving 44 degrees MUSE SYSTEM Calculated R Loving 33 degrees MUSE SYSTEM Calculated T Loving 30 degrees MUSE SYSTEM INTERPRETATION Sinus rhythm Occasional Premature ventricular complexes Otherwise normal ECG When compared with ECG of 21-SEP-2016 12:26, Premature ventricular complexes are now Present ME interval has decreased Nonspecific T wave abnormality has replaced inverted T waves in Inferior leads I personally reviewed the tracing and edited the fellows interpretation Confirmed by fellow MD Anitha, Carissa ([id number]) on 11/09/2022 6:17:28 PM Confirmed by Elsa [...] MD) documented in this encounter Care Teams Electronic Gluer Relationship Specialty Start Date End Date Deborah Quiroga, TOWER OPERATOR PCP - General Family Medicine 03/24/16 02/04/23 documented as of this encounter
--- OUTSIDE RECORDS SUMMARY | 2024-06-01 14:16 | XMS_ITS | Encounter Summary ---
[place] [address] Care Team Providers Care Ship Construction Teacher Name Role Phone Magdalena Acosta MD Primary Care Provider [phone] Encounter Details Date Type Department Care Team (Latest Contact Info) Description 03/18/2023 2:30 PM EDT Laboratory Appointment Lab [address] [place] [address] Positive FRANCISCO (antinuclear antibody) Social [...] PM EST Hospital Encounter Out[place] [phone] Markel Borjas MD [facility] [address] [place] [address] 06/05/2024 2:00 PM EST - 06/05/2024 3:00 PM EST Surgery [place] [phone] Markel Borjas MD [facility] [place] [address] (OSC MSURG) BONE MARROW BIOPSY AND ASPIRATION; DIAGNOSTIC (WRVU 1.44) 06/23/2024 2:00 PM EST Office Visit Hematology and Oncology at [place] [phone] Markel Borjas MD [facility] DR HEMATOLOGY [place] [address] 11/02/2024 12:00 PM EDT Appointment Pulmonology at [place] [phone] 11/02/2024 1:00 PM EDT Office Visit Rheumatology at [place] [phone] Magdalena Peralta MD [facility] [place] [address] 03/01/2025 4:15 PM EDT Office Visit Dermatology at [place] [address] [place] [place] [address] Marek Bonilla MD [address], [place] [address] Scheduled Procedures Name Priority Associated Diagnoses Date/Ti [...] 2:14 PM EDT) Neutrophil % 71.2 % [facility] Neutrophil Absolute 2.26 1.70 - 6.10 x10(3)/mc L [facility] Lymph % 18.2 % [facility] Lymphocytes Abs 0.6(L) 0.9 - 3.2 x10(3)/mc L [facility] Monocyte % 9.7 % [facility] Monocyte Abs 0.3 0.3 - 0.9 x10(3)/mc L [facility] Eos % 0.3 % [facility] Eosinophils Abs 0.0 0.0 - 0.4 x10(3)/mc L [facility] Basophil % 0.6 % [facility] Baso Absolute 0.0 0.0 - 0.1 x10(3)/mc L [facility] Immature Gran % 0.00 % [facility] Comment: Immature granulocytes(IG's)percentage and absolute count will include metamyelocytes, myelocytes, and promyelocytes. Blood smears from CBCs yielding IG's will be scanned manually for concordance. If this scan disagrees with the automated IG or if promyelocytes are noted, a manual differential will be performed. Immature Gran Absolute 0.00 0.00 - 0.04 x10(3)/mc L [facility] Blood 03/18/2023 2:14 PM EDT 03/18/2023 2:24 PM EDT Narrative Resulting Agency Comment Spec In Lab Magdalena Peralta MD HEMATOLOGY ORDERABLE S [facility] [place] [address] * (ABNORMAL) Hemogram (03/18/2023 2:14 PM EDT) White Blood Cell 3.2(L) 4.0 - 9.5 x10(3)/mc L [facility] Red Blood Cell 3.44(L) 4.00 - 5.21 x10(6)/mc L [facility] Hemoglobin 11.1(L) 11.7 - 15.5 g/dL [facility] Hematocrit 32.9(L) 35.7 - 45.8 % [facility] Mean Cell Volume 95.6(H) 82.6 - 94.4 fL [facility] Mean Cell Hemoglobin 32.3(H) 27.1 - 32.0 pg [facility] Mean Cell Hemoglobin Concentration 33.7 31.7 - 35.0 g/dL [facility] Platelet 144(L) 145 - 357 x10(3)/mc L [facility] RDW Standard Deviation 42.6 37.0 - 46.0 fL [facility] RDW coefficient of variation 12.3 11.5 - 14.1 % [facility] Mean Platelet Volume 9.4 7.6 - 12.9 fL [facility] NRBC% auto 0.0 % [facility] NRBC Absolute 0.000 0.000 - 0.000 x10(3)/mc L [facility] Blood 03/18/2023 2:14 PM EDT 03/18/2023 2:24 PM EDT Narrative Resulting Agency Comment Spec In Lab Magdalena Peralta MD HEMATOLOGY ORDERABLE S Performing Organization Address [facility] Co de Phone Number [facility] [place] [address] * (ABNORMAL) Sedimentation rate (03/18/2023 2:14 PM EDT) Sedimentation Rate Automated 68(H) 2 - 39 mm/hr [facility] Comment: Effective July 12, 2019 new capillary photometric technology has resulted in a change in reference ranges. It is recommended that each ESR result be reviewed with its own age appropriate reference range. Blood 03/18/2023 2:14 PM EDT 03/18/2023 2:24 PM EDT Narrative Resulting Agency Comment Spec In Lab Kia Viramontes DO HEMATOLOGY ORDERAB LES Performing Organization Address [facility] Co de Phone Number [facility] [place] [address] * CRP, acute inflammation (03/18/2023 2:14 PM EDT) C-Reactive Protein 3.0 <=4.9 mg/L [facility] Blood 03/18/2023 2:14 PM EDT 03/18/2023 2:24 PM EDT Narrative Resulting Agency Comment Spec In Lab Kia Viramontes DO CHEMISTRY ORDERABL ES Performing Organization Address [facility] Co de Phone Number [facility] [place] [address] * C3 Complement (03/18/2023 2:14 PM EDT) Complement C3 142 90 - 180 mg/dL [facility] Blood 03/18/2023 2:14 PM EDT 03/18/2023 2:24 PM EDT Narrative Resulting Agency Comment Spec In Lab Kia D Wander DO CHEMISTRY ORDERABL ES Performing Organization Address [facility] Co de Phone Number [facility] [place] [address] * C4 Complement (03/18/2023 2:14 PM EDT) Complement C4 30 10 - 40 mg/dL [facility] Blood 03/18/2023 2:14 PM EDT 03/18/2023 2:24 PM EDT Narrative Resulting Agency Comment Spec In Lab Kia Viramontes DO CHEMISTRY ORDERABL ES Performing Organization Address [facility] Co de Phone Number [facility] [place] [address] * CK (03/18/2023 2:14 PM EDT) Creatine Kinase 38 0 - 160 unit/L [facility] Blood 03/18/2023 2:14 PM EDT 03/18/2023 2:24 PM EDT Narrative Resulting Agency Comment Spec In Lab Kia Viramontes DO CHEMISTRY ORDERABL ES Performing Organization Address [facility] de Phone Number [facility] [place] [address] * DNA Antibody (Double-Stranded) (03/18/2023 2:14 PM EDT) dsDNA Ab <0.6 <=15.0 IU/mL [facility] Comment: <10 negative 10-15 equivocal >15 positive This dsDNA antibody result was generated using a fluoroenzyme immunoassay on the Luqit 250 analyzer. This quantitative test is designed to detect IgG antibodies directed against double stranded DNA in human serum. The presence of antibodies that recognize dsDNA is a highly specific marker for systemic lupus erythematosus. Please note that as of 05/26/2022 that this testing is performed by the Special Chemistry Laboratory at [facility]. This change in testing location is associated with a change is testing method and reference intervals. Please review the results of this test in association with the posted reference intervals. Blood 03/18/2023 2:14 PM EDT 03/19/2023 7:19 AM EDT Narrative Resulting Agency Comment Spec In Lab Kia Erika Mossew DO LAB SEND OUT ORDER JODIE [facility] [address] [place] [address] * (ABNORMAL) FRANCISCO Ab by IFA (03/18/2023 2:14 PM EDT) FRANCISCO Ab Screen Test ? Result ?Flag ??Unit ??RefValue Antinuclear Ab, HEp-2 ?Positive 1:2560 ??@ ?<1:80 (Negative) ??Substrate, S ? ADDITIONAL INFORMATION --------- ?Method: Immunofluorescence using HEp-2 cellular substrate. ??FRANCISCO Titer: ? 1:2560 ??FRANCISCO Pattern: ? Speckled ?Test Performed by: ?[facility] ?[address] [place] [address] ?Marketing Associate: Raymond Chaudhry M.D. Ph.D.; CLIA# [id number] ([id number]) [facility] Blood 03/18/2023 2:14 PM EDT 03/18/2023 3:02 PM EDT Narrative Resulting Agency Comment Spec In Lab Kia James Wander DO CHEMISTRY ORDERABL ES [facility] [place] [address] * Comprehensive metabolic panel (non-fasting) (03/18/2023 2:14 PM EDT) Glucose 93 65 - 199 mg/dL [facility] Comment:Diabetes: >=200 mg/d L plus symptoms Blood Urea Nitrogen 18 8 - 18 mg/dL [facility] Creatinine 0.99 0.70 - 1.20 mg/dL [facility] Sodium 141 135 - 145 mmol/L [facility] Potassium 4.5 3.5 - 5.0 mmol/L [facility] Comment: Please note: ??Patients with WBC >100,000 may have falsely elevated Potassium levels. ??For accurate Potassium quantification in these patients send serum separator tube (gold top) for subsequent determinations. ??Contact the Clinical Chemistry Laboratory if there are any questions. Chloride 106 98 - 107 mmol/L [facility] Carbon Dioxide 24 22 - 31 mmol/L [facility] Anion Gap 11 5 - 15 mmol/L [facility] Calcium 10.0 8.5 - 10.5 mg/dL [facility] Protein, Total 7.3 6.1 - 8.0 g/dL [facility] Albumin 4.3 3.2 - 5.2 g/dL [facility] Aspartate Aminotransferase 26 0 - 30 unit/L [facility] Alanine Aminotransferase 11 0 - 30 unit/L [facility] Alkaline Phosphatase 91 35 - 105 unit/L [facility] Bilirubin, Total 0.4 0.2 - 1.3 mg/dL [facility] Est Glomerular Filtration Rate 62 >=60 mL/min/1. 73 m?? [facility] Comment: This patient's estimated GFR [...] CHEMISTRY ORDERABL ES Performing Organization Address City/State/[facility] Co de Phone Number [facility] [place] [address] documented in this encounter Visit Diagnoses Diagnosis Positive FRANCISCO (antinuclear antibody) Other and unspecified nonspecific immunological findings documented in this encounter Care Teams Ship Construction Teacher Relationship Specialty Start Date End Date Magdalena Acosta MD [address] [place] [address] PCP - General Family Medicine 02/05/23 documented as of this encounter
--- OUTSIDE RECORDS SUMMARY | 2024-06-01 14:16 | XMS_ITS | Encounter Summary ---
Author Organization [facility] [place] [address] Care Team Providers Care Financial Reporting Manager Name Role Phone Magdalena Acosta MD Primary Care Provider [phone] Encounter Details Date Type Department Care Team (Latest Contact Info) Description 02/05/2023 9:33 PM EDT - 02/05/2023 11:59 PM EDT [place] [phone] Discharge Disposition: Home Social History Tobacco Use [...] PM EST Hospital Encounter Outpatient [place] [address] Markel Borjas MD [facility] [address] [place] [address] 06/05/2024 2:00 PM EST - 06/05/2024 3:00 PM EST Surgery Outpatient [place] [phone] Markel Borjas MD [facility] [address] [place] [address] (OSC MSURG) BONE MARROW BIOPSY AND ASPIRATION; DIAGNOSTIC (WRVU 1.44) 06/23/2024 2:00 PM EST Office Visit Hematology [place] [phone] Markel Borjas MD [facility] DR [place] [address] 11/02/2024 12:00 PM EDT [place]oint[place] [address] 11/02/2024 1:00 PM EDT Office [place] [address] Magdalena Peralta MD [facility] [place] [address] 03/01/2025 4:15 PM EDT Office Visit Dermatology at [place] [address] [facility] [place] [phone] Marek Bonilla MD [address] [facility] [place] [address] Scheduled Procedures Name Priority Associated [...] Report (02/05/2023 3:00 PM EDT) Final Diagnosis [id number] ? Location: OPW The signing pathologist has (i) examined the relevant preparation(s) for the specimen(s) and (ii) rendered or confirmed the diagnosis(es). . ?Surgical Pathology DIAGNOSIS Left upper back, skin punch biopsy: - ??Compound dysplastic ??melanocytic nevus with moderate atypia, transected at peripheral specimen edges ?? (see discussion) Electronically signed by: ?Vanna CULP, Jesse Shields Verified: ??02/16/2023 8:04 ?? Dermatopathologist Performed at: ??-[facility] Dept. of Pathology, [place] [address] Hvac Engineering Technician: Kunal Rubi MD, FCAP, ??CLIA Certificate: [id number] DISCUSSION If there is an obvious clinical [...] labeled A1. ??sns 02/16/2023 8:04 AM EDT [facility] SPECIMEN FROM SKIN / Unknown 02/05/2023 3:00 PM EDT 02/05/2023 3:00 PM EDT Marek Bonilla MD PATHOLOGY/CYTOLOGY O REMI Performing Organization Address City/State/[facility] Co de Phone Number [facility] [address] [place] [address] documented in this encounter Visit Diagnoses Not on filedocumented in this encounter Care Teams Financial Reporting Manager Relationship Specialty Start Date End Date Magdalena Acosta MD [address] [place] [address] PCP - General Family Medicine 02/05/23 documented as of this encounter
--- OUTSIDE RECORDS SUMMARY | 2024-06-01 14:16 | XMS_ITS | Encounter Summary ---
Author Organization [facility] [place] [address] Care Team Providers Care Latex Spooler Name Role Phone Junaid Deborah Shields APRN Primary Care Provider [phone] Encounter Details Date Type Department Care Team [...] PM EST Hospital Encounter [place] [phone] Markel Borjas MD [facility] DR [place] [address] 06/05/2024 2:00 PM EST - 06/05/2024 3:00 PM EST Surgery [place]patient [place] [phone] Markel Borjas MD [facility] DR [place] [address] (OSC MSURG) BONE MARROW BIOPSY AND ASPIRATION; DIAGNOSTIC (WRVU 1.44) 06/23/2024 2:00 PM EST Office Visit Hematology and Oncology at [place] [phone] Markel Borjas MD [facility] DR HEMATOLOGY [place] [address] 11/02/2024 12:00 PM EDT [place] [address] 11/02/2024 1:00 PM EDT Office Visit Rheumatology at [place] [address] Magdalena Peralta MD [facility] DR [place] [address] 03/01/2025 4:15 PM EDT Office Visit Dermatology at [place] [address] [place] [phone] Marek Bonilla MD [address], [place] [address] DERMATOLOGY [place], [place] [phone] Scheduled Procedures Name Priority Associated Diagnoses Date/Ti me (OSC MSURG) BONE MARROW BIOPSY AND ASPIRATION; DIAGNOSTIC (WRVU 1.44) Anemia, in pt with longstanding neutropenia 06/05/2024 2:00 PM EST documented as of this encounter Visit Diagnoses Not on filedocumented in this encounter Care Teams Latex Spooler Relationship Specialty Start Date End Date Deborah Quiroga, RIPRAP MAN PCP - General Family Medicine 03/24/16 02/04/23 documented as of this encounter
--- OUTSIDE RECORDS SUMMARY | 2024-06-01 14:16 | XMS_ITS | Encounter Summary ---
Author Organization [facility] [place] [address] Care Team Providers Care Cuff Slitter Name Role Phone Magdalena Acosta MD Primary Care Provider [phone] Encounter Details Date Type Department Care Team (Late st Contact Info) Description 02/17/2023 2:00 PM EDT Office [place] [phone] Alirio Esparza MD Aortic valve stenosis, etiology [...] PM EST Hospital Encounter Outpatient Surgery Center [place] [phone] Markel Borjas MD [facility] DR [place] [address] 06/05/2024 2:00 PM EST - 06/05/2024 3:00 PM EST Surgery Outpatient Surgery Center [place] [phone] Markel Borjas MD [facility] DR [place] [address] (OSC MSURG) BONE MARROW BIOPSY AND ASPIRATION; DIAGNOSTIC (WRVU 1.44) 06/23/2024 2:00 PM EST Office Visit Hematology and Oncology at [place] [phone] Markel Borjas MD [facility] DR [place] [address] 11/02/2024 12:00 PM EDT Appointment Pulmonology at [address] 11/02/2024 1:00 PM EDT Office Visit Rheumatology at [place] [phone] Magdalena Peralta MD [facility] [place] [address] 03/01/2025 4:15 PM EDT Office Visit Dermatology at [place] [address] [place] [address] Marek Bonilla MD [address], [address] [address] Scheduled Procedures Name Priority Associated Diagnoses Date/Ti me ([facility]) BONE MARROW BIOPSY AND ASPIRATION; DIAGNOSTIC (WRVU 1.44) Anemia, in pt with longstanding neutropenia 06/05/2024 2:00 PM EST documented as of this encounter Visit Diagnoses Diagnosis Aortic valve stenosis, etiology of cardiac valve disease unspecified documented in this encounter Care Teams Cuff Slitter Relationship Specialty Start Date End Date Magdalena Acosta MD [address] [place] [address] PCP - General Family Medicine 02/05/23 documented as of this encounter
--- OUTSIDE RECORDS SUMMARY | 2024-06-01 14:16 | XMS_ITS | Encounter Summary ---
Author Organization [facility] Address [facility] [place] [address] Care Team Providers Care Brush Operator Name Role Phone Junaid Deborah Shields APRN Primary Care Provider [phone] Encounter Details Date Type Department Care Team (Latest Contact Info) Description 06/22/2022 10:00 AM EST Office [place] [phone] Raymond Loredo MD [facility] [place] [address] Raynaud's phenomenon without gangrene; Positive FRANCISCO (antinuclear [...] can be done locally or here at [facility] that the current time is not particularly [...] for surgery by Dr. Rogers here at [facility]. In addition to painful dysesthesias in her [...] over radiocarpal or ulnocarpal joints. Hands: Normal infrastructure consultant and claw. SJC/TJC 0/0. Knees: Decreased flexion [...] PM EST Hospital Encounter Outpatient [place] [phone] Markel Borjas MD [facility] DR [place] [address] 06/05/2024 2:00 PM EST - 06/05/2024 3:00 PM EST Surgery Outpatient [place] [phone] Markel Borjsa MD [facility] DR [place] [address] (OSC MSURG) BONE MARROW BIOPSY AND ASPIRATION; DIAGNOSTIC (WRVU 1.44) 06/23/2024 2:00 PM EST Office Visit Hematology [place] [phone] Markel Borjas MD [facility] DR HEMATOLOGY [place] [address] 11/02/2024 12:00 PM EDT Appointment Pulmonology at [place] [phone] 11/02/2024 1:00 PM EDT Office Visit Rheumatology at [place] [phone] Magdalena Peralta MD [facility] [place] [address] 03/01/2025 4:15 PM EDT Office Visit Dermatology at [place] [address] [place] [address] Marek Bonilla MD [address], [place] [address] Scheduled Procedures Name Priority Associated Diagnoses Date/Ti me ([facility]) BONE MARROW BIOPSY AND ASPIRATION; DIAGNOSTIC (WRVU 1.44) Anemia, in pt with longstanding neutropenia 06/05/2024 2:00 PM EST documented as of this encounter Visit Diagnoses Diagnosis Raynaud's phenomenon without gangrene Positive FRANCISCO (antinuclear antibody) Other and unspecified nonspecific immunological findings Primary osteoarthritis involving multiple joints Cervical disc disorder at C6-C7 level with radiculopathy documented in this encounter Care Teams Brush Operator Relationship Specialty Start Date End Date Deborah Quiroga APRN PCP - General Family Medicine 03/24/16 02/04/23 documented as of this encounter
--- OUTSIDE RECORDS SUMMARY | 2024-06-01 14:16 | XMS_ITS | Encounter Summary ---
Author Organization [facility] [place] [address] Care Team Providers Care Brush Holder Inspector Name Role Phone Magdalena Acosta MD Primary Care Provider [phone] Encounter Details Date Type Department Care Team [...] PM EST Hospital Encounter Outpatient [place] [phone] Markel Borjas MD [facility] DR HEMATOLOG[place] [address] 06/05/2024 2:00 PM EST - 06/05/2024 3:00 PM EST Surgery Outpatient [place] [phone] Markel Borjas MD [facility] DR HEMAT[place] [address] (OSC MSURG) BONE MARROW BIOPSY AND ASPIRATION; DIAGNOSTIC (WRVU 1.44) 06/23/2024 2:00 PM EST Office Visit Hematology and Oncology at [place] [phone] Markel Borjas MD [facility] DR HEMATOLOGY [place] [address] 11/02/2024 12:00 PM EDT Appointment Pulmonology at [place] [address] 11/02/2024 1:00 PM EDT Office Visit Rheumatology at [place] [address] Magdalena Peralta MD [facility] DR [place] [address] 03/01/2025 4:15 PM EDT Office Visit Dermatology at [place] [address] [place] [phone] Marek Bonilla MD [address], [place] DERMATOLOGY [place], [place] [phone] Scheduled Procedures Name Priority Associated Diagnoses Date/Ti me (OSC MSURG) BONE MARROW BIOPSY AND ASPIRATION; DIAGNOSTIC (WRVU 1.44) Anemia, in pt with longstanding neutropenia 06/05/2024 2:00 PM EST documented as of this encounter Visit Diagnoses Not on filedocumented in this encounter Care Teams Brush Holder Inspector Relationship Specialty Start Date End Date Magdalena Acosta MD [address] [place] [address] PCP - General Family Medicine 02/05/23 documented as of this encounter
--- OUTSIDE RECORDS SUMMARY | 2024-06-01 14:16 | XMS_ITS | Encounter Summary ---
Author Organization [facility] [place] [address] Care Team Providers Care Bench Examiner Name Role Phone Deborah Quiroga APRN Primary Care Provider [phone] Encounter Details Date Type Department Care Team (Late st Contact Info) Description 06/08/2022 Ancillary Procedure Radiology Library at [facility], [place] [phone] Deborah Quiroga APRN [address] [place] [phone] Social History Tobacco Use Types Packs/Day [...] PM EST Hospital Encounter [place]patient [place] [phone] Markel Borjas MD [facility] HEMATOLOGY [place] [address] 06/05/2024 2:00 PM EST - 06/05/2024 3:00 PM EST Surgery [place] [address] Markel Borjas MD [facility] DR [place] [address] (OSC MSURG) BONE MARROW BIOPSY AND ASPIRATION; DIAGNOSTIC (WRVU 1.44) 06/23/2024 2:00 PM EST Office Visit [place] [address] Markel Borjas MD [facility] DR [place] [address] 11/02/2024 12:00 PM EDT [place] [phone] 11/02/2024 1:00 PM EDT Office [place] [phone] Magdalena Peralta MD [facility] [place] [address] 03/01/2025 4:15 PM EDT Office Visit Dermatology at [address] [place] [phone] Marek Bonilla MD [address] [place] [address], QU[address] A DERMATOLOGY [place], [place] [phone] Scheduled Procedures Name Priority Associated Diagnoses Date/Ti [...] 12:00 AM EST) Narrative [facility] - 06/18/2022 10:57 AM EST This exam is auto-finalizing. It's purpose is for storage only. Deborah Quiroga APRN IMGerman FILM LIBRARY OR DERABLES [place], [place] documented in this encounter Visit Diagnoses Not on filedocumented in this encounter Care Teams Bench Examiner Relationship Specialty Start Date End Date Deborah Quiroga APRN PCP - General Family Medicine 03/24/16 02/04/23 documented as of this encounter
--- OUTSIDE RECORDS SUMMARY | 2024-06-01 14:16 | XMS_ITS | Encounter Summary ---
Author Organization [facility] Address [facility] [place] [address] Care Team Providers Care Emissions Engineer Name Role Phone Deborah Quiroga APRN Primary Care Provider [phone] Reason for Visit * Reason Comments Follow-up Encounter Details Date Type Department Care Team (Late st Contact Info) Description 07/03/2022 1:30 PM EST Office Visit Hematology [place] [address] Markel Borjas MD [facility] DR HEMATOLOGY [place] [address] Consuelo Sommer APRN [facility] DR HEMATOLOGY [place] [address] Chronic idiopathic neutropenia; Dysuria Social History Tobacco [...] 07/03/2022 1:30 PM EST Hematology Outpatient Clinic [facility] Hematology Outpatient Consult Note CC: [...] TOUCH PREP, CLOT SECTION, CORE ??BIOPSY); [OSR# [id number], COLLECTED 06/23/2016, 19 SLIDES]: ?1. 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 Extremities: No edema. Labs: Hgb= 11.7 Qduc=098 ANC= 2.5 Imaging As above - reviewed [...] PM EST Hospital Encounter [place] [address] Markel Borjas MD [facility] DR HEMATOLOGY [place] [address] 06/05/2024 2:00 PM EST - 06/05/2024 3:00 PM EST Surgery [place] [address] Markel Borjas MD [facility] DR HEMATOLOGY [place] [address] (OSC MSURG) BONE MARROW BIOPSY AND ASPIRATION; DIAGNOSTIC (WRVU 1.44) 06/23/2024 2:00 PM EST Office Visit Hematology [place] [address] Markel Borjas MD [facility] DR HEMATOLOGY [place] [address] 11/02/2024 12:00 PM EDT Appointment [place] [address] 11/02/2024 1:00 PM EDT Office [place] [address] Magdalena Peralta MD [facility] [place] [address] 03/01/2025 4:15 PM EDT Office Visit Dermatology at [place] [address] [place] [address] Mraek Bonilla MD [address], [place] [address] Scheduled Procedures Name Priority Associated Diagnoses Date/Ti [...] - GEN ERAL ORDERABLES Performing Organization Address [facility] Co de Phone Number [facility] [place] [address] * (ABNORMAL) Urinalysis Microscopic Exam (07/03/2022 2:00 [...] Borjas MD URINE ORDERABLES Performing Organization Address [facility] Phone Number [facility] [place] [address] * (ABNORMAL) Urinalysis with reflex Culture (07/03/2022 [...] HOSPITAL LABORATORY Leukocytes, Urine Dipstick Small(A) Negative [facility] LABORATORY Appearance, Urine Dipstick Clear Clear [facility] Specific [place] Urine Automated 1.022 1.005 - 1.030 [facility] Color, Urine Dipstick Yellow Yellow [facility] Reflex to Culture Yes [facility] Clean Catch Urine 07/03/2022 2:00 PM EST 07/03/2022 2:29 PM EST Narrative Resulting Agency Comment Spec In Lab Markel Borjas MD URINE ORDERABLES Performing Organization Address City/[facility] Co de Phone Number [facility] [place] [address] * (ABNORMAL) Comprehensive metabolic panel (non-fasting) (07/03/2022 [...] CHEMISTRY ORDERABL ES [facility] [place] [address] documented in this encounter Visit Diagnoses Diagnosis Chronic idiopathic neutropenia Other neutropenia Dysuria documented in this encounter Care Teams Emissions Engineer Relationship Specialty Start Date End Date Deborah Quiroga APRN PCP - General Family Medicine 03/24/16 02/04/23 documented as of this encounter
--- OUTSIDE RECORDS SUMMARY | 2024-06-01 14:16 | XMS_ITS | Encounter Summary ---
Author Organization [facility] Address [facility] [place] [address] Care Team Providers Care Boat Outfitting Supervisor Name Role Phone Ashley Quirogazac Shields APRN Primary Care Provider [phone] Reason for Referral * Consultation (Routine) - Closed Specialty Diagnoses / Procedures Referred By Contac t Referred To Contact Neurology Diagnoses Neck pain Popeye Rogers MD [facility] [place] [address] Kyra Haas MD [facility] [address] [address] Referral ID Status Reason Start Date Expiration Date V isits Requested Visits Authorized [id number] Closed Consult, Test & Treat 06/29/2022 06/29/2023 1 1 Reason for Visit * Reason Comments Neck Pain Weak in both arms, p ain and tingling in arms and hands Encounter Details Date Type Department Care Team (Late st Contact Info) Description 06/29/2022 10:20 AM EST Office Visit [place] [address] Popeye Rogers MD [facility] [place] [address] Neck pain Social History Tobacco Use Types [...] have EMG and nerve conduction studies in [place] that showed carpal tunnel syndrome. I do not have a copy of that report. documented in this encounter Plan of Treatment Upcoming Encounters Date Type Department Care Team (Late st Contact Info) Description 06/05/2024 2:00 PM EST Hospital Encounter [place] [address] Markel Borjas MD [facility] HEMATOLOGY [place] [address] 06/05/2024 2:00 PM EST - 06/05/2024 3:00 PM EST Surgery [place] [phone] Markel Borjas MD [facility] HEMATOLOGY [place] [address] (OSC MSURG) BONE MARROW BIOPSY AND ASPIRATION; DIAGNOSTIC (WRVU 1.44) 06/23/2024 2:00 PM EST Office Visit Hematology [place] [address] Markel oBrjas MD [facility] HEMATOLOGY [place] [address] 11/02/2024 12:00 PM EDT [place]oint[place] [address] 11/02/2024 1:00 PM EDT Office [place] [address] Magdalena Peralta MD [facility] [place] [address] 03/01/2025 4:15 PM EDT Office Visit Dermatology at [place] [address] [place] [address] Marek Bonilla MD [address], [place] [address] Scheduled Procedures Name Priority Associated Diagnoses Date/Ti [...] Cervicalgia documented in this encounter Care Teams Boat Outfitting Supervisor Relationship Specialty Start Date End Date Deborah Quiroga APRN PCP - General Family Medicine 03/24/16 02/04/23 documented as of this encounter
--- OUTSIDE RECORDS SUMMARY | 2024-06-01 14:16 | XMS_ITS | Encounter Summary ---
Author Organization [facility] Address [facility] [place] [address] Care Team Providers Care Social Science Research Assistant Name Role Phone Deborah Quiroga APRN Primary Care Provider [phone] Encounter Details Date Type Department Care Team (Latest Contact Info) Description 07/03/2022 12:28 PM EST - 07/03/2022 1:35 PM EST Hospital Encounter Hematology [place] [address] Chronic idiopathic neutropenia Discharge Disposition: Home Social [...] PM EST Hospital Encounter Outpatient [place] [address] Markel Borjas MD [facility] [address] [place] [address] 06/05/2024 2:00 PM EST - 06/05/2024 3:00 PM EST Surgery Outpatient [place] [address] Markel Borjas MD [facility] [address] [place] [address] (OSC MSURG) BONE MARROW BIOPSY AND ASPIRATION; DIAGNOSTIC (WRVU 1.44) 06/23/2024 2:00 PM EST Office Visit [place]ematology [place] [address] Markel Borjas MD [facility] [address] [place] [address] 11/02/2024 12:00 PM EDT [place]oint[place] [address] 11/02/2024 1:00 PM EDT Office [place] [address] Magdalena Peralta MD [facility] DR RHEUMATOLOGY DEPT [place], [place] [address] 03/01/2025 4:15 PM EDT Office Visit Dermatology at [place] [address] [place] [phone] Marek Bonilla MD [address], [place] [address] Scheduled Procedures Name Priority Associated [...] [facility] Lymph % 18.4 % [facility] Lymphocytes Abs 0.7(L) 0.9 - 3.2 x10(3)/ L [facility] Monocyte % 8.4 % [facility] Monocyte Abs 0.3 0.3 - 0.9 x10(3)/ L [facility] Eos % 0.0 % [facility] Eosinophils Abs 0.0 0.0 - 0.4 x10(3)/[facility] Basophil % 0.3 % [facility] Baso Absolute 0.0 0.0 - 0.1 x10(3)/[facility] Immature Gran % 0.00 % [facility] Comment: Immature granulocytes(IG's)percentage and absolute count will include metamyelocytes, myelocytes, and promyelocytes. Blood smears from CBCs yielding IG's will be scanned manually for concordance. If this scan disagrees with the automated IG or if promyelocytes are noted, a manual differential will be performed. Immature Gran Absolute 0.00 0.00 - 0.04 x10(3)/[facility] Blood 07/03/2022 12:4 0 PM EST 07/03/2022 1:03 PM EST Narrative Resulting Agency Comment Spec In Lab Markel Borjas MD HEMATOLOGY ORDERAB LES Performing Organization Address City/State/[facility] Co de Phone Number [facility] [place] [address] * (ABNORMAL) Hemogram (07/03/2022 12:40 PM EST) White Blood Cell 3.6(L) 4.0 - 9.5 x10(3)/[facility] Red Blood Cell 3.61(L) 4.00 - 5.21 x10(6)/[facility] Hemoglobin 11.7 11.7 - 15.5 g/dL [facility] Hematocrit 34.5(L) 35.7 - 45.8 % [facility] Mean Cell Volume 95.6(H) 82.6 - 94.4 fL [facility] Mean Cell Hemoglobin 32.4(H) 27.1 - 32.0 pg [facility] Mean Cell Hemoglobin Concentration 33.9 31.7 - 35.0 g/dL [facility] Platelet 171 145 - 357 x10(3)/mc L [facility] RDW Standard Deviation 40.5 37.0 - 46.0 fL [facility] RDW coefficient of variation 11.5 11.5 - 14.1 % [facility] Mean Platelet Volume 9.2 7.6 - 12.9 fL [facility] NRBC% auto 0.0 % [facility] NRBC Absolute 0.000 0.000 - 0.000 x10(3)/mc L [facility] Blood 07/03/2022 12:4 0 PM EST 07/03/2022 1:03 PM EST Narrative Resulting Agency Comment Spec In Lab Markel Borjas MD HEMATOLOGY ORDERAB LES Performing Organization Address City/State/[facility] Co de Phone Number [facility] [place] [address] * (ABNORMAL) Comprehensive metabolic panel (non-fasting) (07/03/2022 [...] MD CHEMISTRY ORDERABL ES [facility] [place] [address] documented in this encounter Visit Diagnoses Diagnosis Chronic idiopathic neutropenia Other neutropenia documented in this encounter Care Teams Social Science Research Assistant Relationship Specialty Start Date End Date Deborah Quiroga APRN PCP - General Family Medicine 03/24/16 02/04/23 documented as of this encounter
--- OUTSIDE RECORDS SUMMARY | 2024-06-01 14:16 | XMS_ITS | Encounter Summary ---
Author Organization Formerly [facility] [place] [address] Care Team Providers Care Rn Acute Dialysis Name Role Phone Deborah Quiroga APRN Primary Care Provider [phone] Encounter Details Date Type Department Care Team (Late st Contact Info) Description 06/17/2022 Ancillary Procedure Radiology Library at [facility] [place] [phone] Deborah Quiroga APRN [address] [place] [phone] Social History Tobacco Use Types Packs/Day [...] PM EST Hospital Encounter Outpatient [place] [address] Markel Borjas MD [facility] HEMATOLOGY [place] [address] 06/05/2024 2:00 PM EST - 06/05/2024 3:00 PM EST Surgery Outpatient [place] [address] Markel Borjas MD [facility] [address] [place] [address] (OSC MSURG) BONE MARROW BIOPSY AND ASPIRATION; DIAGNOSTIC (WRVU 1.44) 06/23/2024 2:00 PM EST Office Visit Hematology [place] [address] Markel Borjas MD [facility] [address] [place] [address] 11/02/2024 12:00 PM EDT Appointment [place] [address] 11/02/2024 1:00 PM EDT Office [place] [address] Magdalena Peralta MD [facility] [place] [address] 03/01/2025 4:15 PM EDT Office Visit Dermatology at [address] [place] [phone] Marek Bonilla MD [address] [place] [address], [place] A DERMATOLOGY [place], [place] [phone] Scheduled Procedures Name Priority Associated Diagnoses Date/Ti [...] Spine (06/17/2022 12:00 AM EST) Narrative [facility] - 06/18/2022 11:00 AM EST This exam is auto-finalizing. It's purpose is for storage only. Deborah Quiroga APRN IMGerman FILM LIBRARY OR DERABLES [place] documented in this encounter Visit Diagnoses Not on filedocumented in this encounter Care Teams Rn Acute Dialysis Relationship Specialty Start Date End Date Deborah Quiroga APRN PCP - General Family Medicine 03/24/16 02/04/23 documented as of this encounter
--- OUTSIDE RECORDS SUMMARY | 2024-06-01 14:16 | XMS_ITS | Encounter Summary ---
Author [place] [address] Care Team Providers Care Raw Stock Machine Feeder Name Role Phone Magdalena Acosta MD Primary Care Provider [phone] Encounter Details Date Type Department Care Team [...] PM EST Hospital Encounter [place]patient [place] [phone] Markel Borjas MD [facility] DR [place] [address] 06/05/2024 2:00 PM EST - 06/05/2024 3:00 PM EST Surgery [place]patient [place] [address] Markel Borjas MD [facility] [address] [place] [address] (OSC MSURG) BONE MARROW BIOPSY AND ASPIRATION; DIAGNOSTIC (WRVU 1.44) 06/23/2024 2:00 PM EST Office Visit Hematology and Oncology at [place] [phone] Markel Borjas MD [facility] DR [place] [address] 11/02/2024 12:00 PM EDT Appointment Pulmonology at [place] [address] 11/02/2024 1:00 PM EDT Office Visit Rheumatology at [place] [address] Magdalena Peralta MD [facility] [place] [address] 03/01/2025 4:15 PM EDT Office Visit Dermatology at [place] [address] [place] [phone] Marek Bonilla MD [address], QUOC A DERMATOLOGY [place], [place] [phone] Scheduled Procedures Name Priority Associated Diagnoses Date/Ti me (OSC MSURG) BONE MARROW BIOPSY AND ASPIRATION; DIAGNOSTIC (WRVU 1.44) Anemia, in pt with longstanding neutropenia 06/05/2024 2:00 PM EST documented as of this encounter Visit Diagnoses Not on filedocumented in this encounter Care Teams Raw Stock Machine Feeder Relationship Specialty Start Date End Date Magdalena Acosta MD [address] [place] [address] PCP - General Family Medicine 02/05/23 documented as of this encounter
--- OUTSIDE RECORDS SUMMARY | 2024-06-01 14:16 | XMS_ITS | Encounter Summary ---
Author Organization [facility] Address [facility] [place] [address] Care Team Providers Care Instrument And Control Service Person Name Role Phone Magdalena Acosta MD Primary Care Provider [phone] Encounter Details Date Type Department Care Team (Late st Contact Info) Description 03/29/2023 Orders Only Cardiology at [address] [phone] Ranjan Delgado MD [facility] [place] [address] Severe aortic stenosis (Primary Dx) Social History [...] PM EST Hospital Encounter [place] [address] Markel Borjas MD [facility] [place] [address] 06/05/2024 2:00 PM EST - 06/05/2024 3:00 PM EST Surgery [place] [address] Markel Borjas MD [facility] DR [place] [address] (OSC MSURG) BONE MARROW BIOPSY AND ASPIRATION; DIAGNOSTIC (WRVU 1.44) 06/23/2024 2:00 PM EST Office Visit Hematology and Oncology at [place] [phone] Markel Borjas MD [facility] DR HEMATOLOGY [place] [address] 11/02/2024 12:00 PM EDT Appointment [place] [address] 11/02/2024 1:00 PM EDT Office Visit Rheumatology at [address] Magdalena Peralta MD [facility] [place] [address] 03/01/2025 4:15 PM EDT Office Visit Dermatology at [address] [place] [phone] Marek Bonilla MD [address] [place] [address], [place] [address] Scheduled Orders Name Type Priority [...] disorders documented in this encounter Care Teams Instrument And Control Service Person Relationship Specialty Start Date End Date Magdalena Acosta MD [address] [place] [address] PCP - General Family Medicine 02/05/23 documented as of this encounter
--- OUTSIDE RECORDS SUMMARY | 2024-06-01 14:16 | XMS_ITS | Encounter Summary ---
Author Organization [facility] [place] [address] Care Team Providers Care Filling Hauler Weaving Name Role Phone Junaid Deborah Shields APRN Primary Care Provider [phone] Encounter Details Date Type Department Care Team (Latest Contact Info) Description 11/09/2022 10:37 AM EDT - 11/09/2022 4:53 PM EDT Hospital Encounter [place] [address] Nitesh Escobedo MD [facility] [place] [address] Aortic valve stenosis, etiology of cardiac valve [...] Center 02/05/2023 2:30 PM Marek Bonilla MD [facility] New Medications to be Picked Up None For questions regarding this document or issues relating to this hospitalization on the Medical Service, please contact your inpatient physician through the [facility] Director Of Operations For Therapy . Issues afterhours and on weekends will be handled by the Hospitalist staff on-call. * Attachments The following attachments cannot be sent through Care Everywhere. * Coronary Angiogram: Post-op (Luxembourger) * Right Heart Catheterization: Pulmonary Artery Catheterization: Post-op (Luxembourger) documented in this encounter Medications at Time [...] MD - 11/09/2022 11:20 AM EDT . [facility] Interventional Cardiology Adult Pre-Procedure H&P Update: Cardiac Catheterization Purnima Thacker [id number] Chief Complaint: BONILLA HPI: Purnima Thacker [...] Marrero MD Interventional Cardiology 11/09/22 11:43 AM [facility] Pager: [phone] documented in this encounter Plan of Treatment Upcoming Encounters Date Type Department Care Team (Late st Contact Info) Description 06/05/2024 2:00 PM EST Hospital Encounter [place]patient [place] [address] Markel Brojas MD [facility] [address] [place] [address] 06/05/2024 2:00 PM EST - 06/05/2024 3:00 PM EST Surgery Outpatient Surgery Center [place] [phone] Markel Borjas MD [facility] DR [place] [address] (OSC MSURG) BONE MARROW BIOPSY AND ASPIRATION; DIAGNOSTIC (WRVU 1.44) 06/23/2024 2:00 PM EST Office Visit Hematology [place] [address] Markel Borjas MD [facility] DR [place] [address] 11/02/2024 12:00 PM EDT Appointment Pulmonology at [place] [address] 11/02/2024 1:00 PM EDT Office Visit Rheumatology at [address] Magdalena Peralta MD [facility] [place] [address] 03/01/2025 4:15 PM EDT Office Visit Dermatology at [place] [address] [place] [address] Marek Bonilla MD [address], [place] [address] Scheduled Procedures Name Priority Associated [...] & Arts W/Inj & Angio Img S&I ([id number]) 11/09/2022 11:51 AM EDT Aortic valve stenosis, etiology of cardiac valve disease unspecified EKG 12-LEAD Routine 11/09/2022 11:17 AM EDT Aortic valve stenosis, etiology of cardiac valve disease unspecified documented in this encounter Results * CARDIAC CATHETERIZATION (11/09/2022 1:05 PM EDT) Anatomical Region Laterality Modality Other Narrative 11/09/2022 2:01 PM EDT ?[facility] ? Cardiac Catheterization/Intervention Report ? Patient Name: Purnima Thacker. ? Procedure Date: 11/09/2022 ? A #: [id number] ? Primary Physician: Nitesh Escobedo ? Case #: [id number] ? File Name: [id number] ? Catheterization Order Number: [id number] ? [facility] ? Final Report [place], [place] ? Patient Name: ? Purnima M. Kirstie ? ID#: ?[id number] ? : ?1955 ? Procedure Date: ? [...] Escobedo M.D. ? Electronically Signed by: Nitesh Escobedo, [...] (Bezet) 457 ms MUSE SYSTEM Calculated P [place] 44 degrees MUSE SYSTEM Calculated R [place] 33 degrees MUSE SYSTEM Calculated T [place] 30 degrees MUSE SYSTEM INTERPRETATION Sinus rhythm Occasional Premature ventricular complexes Otherwise normal ECG When compared with ECG of 21-SEP-2016 12:26, Premature ventricular complexes are now Present HI interval has decreased Nonspecific T wave abnormality has replaced inverted T waves in Inferior leads I personally reviewed the tracing and edited the fellows interpretation Confirmed by fellow MD Anitha, Carissa ([id number]) on 11/09/2022 6:17:28 PM Confirmed by Elsa [...] MD) documented in this encounter Care Teams Filling Hauler Weaving Relationship Specialty Start Date End Date Deborah Quiroga, ANURAG PCP - General Family Medicine 03/24/16 02/04/23 documented as of this encounter
--- OUTSIDE RECORDS SUMMARY | 2024-06-01 14:16 | XMS_ITS | Encounter Summary ---
Author Organization [facility] [place] [address] Care Team Providers Care Glove Printer Name Role Phone Magdalena Acosta MD Primary Care Provider [phone] Encounter Details Date Type Department Care Team (Late st Contact Info) Description 03/29/2023 Notes Only Cardiology at [address] [phone] Vahid Plasencia, RN Social History Tobacco Use [...] 82/51; Mild AR; Moderate MR; Trace TR 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 documented in this encounter Plan of Treatment Upcoming Encounters Date Type Department Care Team (Late st Contact Info) Description 06/05/2024 2:00 PM EST Hospital Encounter Outpatient [place] [address] Markel Borjas MD [facility] DR [place] [address] 06/05/2024 2:00 PM EST - 06/05/2024 3:00 PM EST Surgery Outpatient [place] [address] Markel Borjas MD [facility] DR [place] [address] (OSC MSURG) BONE MARROW BIOPSY AND ASPIRATION; DIAGNOSTIC (WRVU 1.44) 06/23/2024 2:00 PM EST Office Visit Hematology [place] [address] Markel Borjas MD [facility] DR [place] [address] 11/02/2024 12:00 PM EDT Appointment [place] [address] 11/02/2024 1:00 PM EDT Office [place] [address] Magdalena Peralta MD [facility] [address] 03/01/2025 4:15 PM EDT Office Visit Dermatology at [address] [phone] Marek Bonilla MD [address], [place] [address] Scheduled Procedures Name Priority Associated Diagnoses Date/Ti me (OSC MSURG) BONE MARROW BIOPSY AND ASPIRATION; DIAGNOSTIC (WRVU 1.44) Anemia, in pt with longstanding neutropenia 06/05/2024 2:00 PM EST documented as of this encounter Visit Diagnoses Not on filedocumented in this encounter Care Teams Glove Printer Relationship Specialty Start Date End Date Magdalena Acosta MD [address] [place] [address] PCP - General Family Medicine 02/05/23 documented as of this encounter
--- OUTSIDE RECORDS SUMMARY | 2024-06-01 14:16 | XMS_ITS | Encounter Summary ---
Author Organization [facility] Address [facility] Erika lópez[place]yl[place] [address] Care Team Providers Care Vehicle Refinisher Name Role Phone Deborah Quiroga ANURAG Primary Care Provider [phone] Encounter Details Date Type Department Care Team (Late st Contact Info) Description 01/09/2022 Refill Dermatology at [address] [address] Lupe Connor RN Social History [...] PM EST Hospital Encounter [place]patient [place] [address] Markel Borjas MD [facility] [address] [place] [address] 06/05/2024 2:00 PM EST - 06/05/2024 3:00 PM EST Surgery [place] [address] Markel Borjas MD [facility] [address] [place] [address] (OSC MSURG) BONE MARROW BIOPSY AND ASPIRATION; DIAGNOSTIC (WRVU 1.44) 06/23/2024 2:00 PM EST Office Visit [place]ematology [place] [address] Markel Borjas MD [facility] DR HEMATOLOGY [place] [address] 11/02/2024 12:00 PM EDT Appointment [place] [address] 11/02/2024 1:00 PM EDT Office Visit Rheumatology at [place] [phone] Magdalena Peralta MD [facility] DR [place] [address] 03/01/2025 4:15 PM EDT Office Visit Dermatology at [place] [address] [facility] [place] [address] Marek Bonilla MD [address], TODD A DERMATOLOGY [place], [place] [address] Scheduled Procedures Name Priority Associated Diagnoses Date/Ti me (OSC MSURG) BONE MARROW BIOPSY AND ASPIRATION; DIAGNOSTIC (WRVU 1.44) Anemia, in pt with longstanding neutropenia 06/05/2024 2:00 PM EST documented as of this encounter Visit Diagnoses Not on filedocumented in this encounter Care Teams Vehicle Refinisher Relationship Specialty Start Date End Date Deborah Quiroga APRN PCP - General Family Medicine 03/24/16 02/04/23 documented as of this encounter
--- OUTSIDE RECORDS SUMMARY | 2024-06-01 14:16 | XMS_ITS | Encounter Summary ---
Author Organization [facility] [place] [address] Care Team Providers Care Irrigator Gravity Flow Name Role Phone Magdalena Acosta MD Primary Care Provider [phone] Encounter Details Date Type Department Care Team [...] PM EST Hospital Encounter Outpatient [place] [phone] Markel Borjas MD [facility] DR [place] [address] 06/05/2024 2:00 PM EST - 06/05/2024 3:00 PM EST Surgery Outpatient [place] [address] Markel Borjas MD [facility] [address] [place] [address] (OSC MSURG) BONE MARROW BIOPSY AND ASPIRATION; DIAGNOSTIC (WRVU 1.44) 06/23/2024 2:00 PM EST Office Visit Hematology and Oncology at [place] [phone] Markel Borjas MD [facility] DR [place] [address] 11/02/2024 12:00 PM EDT Appointment Pulmonology at [place] [address] 11/02/2024 1:00 PM EDT Office Visit Rheumatology at [place] [address] Magdalena Peralta MD [facility] [place] [address] 03/01/2025 4:15 PM EDT Office Visit Dermatology at [place] [address] [place] [address] Marek Bonilla MD [address], [place] A DERMATOLOGY [place], [place] [phone] Scheduled Procedures Name Priority Associated Diagnoses Date/Ti me (OSC MSURG) BONE MARROW BIOPSY AND ASPIRATION; DIAGNOSTIC (WRVU 1.44) Anemia, in pt with longstanding neutropenia 06/05/2024 2:00 PM EST documented as of this encounter Visit Diagnoses Not on filedocumented in this encounter Care Teams Irrigator Gravity Flow Relationship Specialty Start Date End Date Magdalena Acosta MD [address] [place] [address] PCP - General Family Medicine 02/05/23 documented as of this encounter
--- OUTSIDE RECORDS SUMMARY | 2024-06-01 14:16 | XMS_ITS | Encounter Summary ---
[place] [address] Care Team Providers Care Supervisor Cap And Hat Production Name Role Phone Magdaelna Acosta MD Primary Care Provider [phone] Reason for Visit * Reason Comments Skin Lesion Encounter Details Date Type Department Care Team (Late st Contact Info) Description 04/20/2023 10:00 AM EDT Office Visit Dermatology at [address] [address] Marek Bonilla MD [address] [facility], [place] [address] Seborrheic keratosis Social History Tobacco Use Types [...] cutaneous and ocular 3. Previously told by addresser that she had corneal tears from her [...] PM EST Hospital Encounter Outpatient [place] [address] Markel Borjas MD [facility] DR HEMATOLOGY [place] [address] 06/05/2024 2:00 PM EST - 06/05/2024 3:00 PM EST Surgery Outpatient [place] [address] Markel Borjas MD [facility] DR HEMATOLOGY [place] [address] (OSC MSURG) BONE MARROW BIOPSY AND ASPIRATION; DIAGNOSTIC (WRVU 1.44) 06/23/2024 2:00 PM EST Office Visit Hematology [place] [address] Markel Borjas MD [facility] HEMATOLOGY [place] [address] 11/02/2024 12:00 PM EDT Appointment [place] [address] 11/02/2024 1:00 PM EDT Office [place] [address] Magdalena Peralta MD [facility] [place] [address] 03/01/2025 4:15 PM EDT Office Visit Dermatology at [place] [address] [place] [phone] Marek Bonilla MD [address], [place] [address] Scheduled Procedures Name Priority Associated Diagnoses Date/Ti me (OSC MSURG) BONE MARROW BIOPSY AND ASPIRATION; DIAGNOSTIC (WRVU 1.44) Anemia, in pt with longstanding neutropenia 06/05/2024 2:00 PM EST documented as of this encounter Visit Diagnoses Diagnosis Seborrheic keratosis Other seborrheic keratosis documented in this encounter Care Teams Supervisor Cap And Hat Production Relationship Specialty Start Date End Date Magdalena Acosta MD [address] [place] [address] PCP - General Family Medicine 02/05/23 documented as of this encounter
--- OUTSIDE RECORDS SUMMARY | 2024-06-01 14:16 | XMS_ITS | Encounter Summary ---
[place] [address] Care Team Providers Care Sliver Lap Tender Name Role Phone Magdalena Acosta MD Primary Care Provider [phone] Reason for Visit * Reason Comments Annual Exam Encounter Details Date Type Department Care Team (Late st Contact Info) Description 02/05/2023 2:30 PM EDT Office Visit Dermatology at [address] [address] Marek Bonilla MD [address] [facility], [place] [address] Rosacea; Ocular rosacea; Nevus Social History Tobacco [...] cutaneous and ocular 2. Previously told by gasket maker that she had corneal tears from [...] PM EST Hospital Encounter Outpatient [place] [phone] Markel Borjas MD [facility] DR HEMATOLOGY [place] [address] 06/05/2024 2:00 PM EST - 06/05/2024 3:00 PM EST Surgery Outpatient [place] [phone] Markel Borjas MD [facility] DR HEMATOLOGY [place] [address] (OSC MSURG) BONE MARROW BIOPSY AND ASPIRATION; DIAGNOSTIC (WRVU 1.44) 06/23/2024 2:00 PM EST Office Visit [place] [address] Markel Borjas MD [facility] DR HEMATOLOGY [place] [address] 11/02/2024 12:00 PM EDT Appointment Pulmonology at [place] [address] 11/02/2024 1:00 PM EDT Office [place] [address] Magdalena Peralta MD [facility] [place] [address] 03/01/2025 4:15 PM EDT Office Visit Dermatology at [place] [address] [facility] [place] [address] Marek Bonilla MD [address], [place] [address] Scheduled Procedures Name Priority Associated Diagnoses Date/Ti me (OSC MSURG) BONE MARROW BIOPSY AND ASPIRATION; DIAGNOSTIC (WRVU 1.44) Anemia, in pt with longstanding neutropenia 06/05/2024 2:00 PM EST documented as of this encounter Visit Diagnoses Diagnosis Rosacea Ocular rosacea Rosacea Nevus Benign neoplasm of skin, site unspecified documented in this encounter Care Teams Sliver Lap Tender Relationship Specialty Start Date End Date Magdalena Acosta MD [address] [place] [address] PCP - General Family Medicine 02/05/23 documented as of this encounter
--- OUTSIDE RECORDS SUMMARY | 2024-06-01 14:16 | XMS_ITS | Encounter Summary ---
Author Organization [facility] Address [facility] [place] [address] Care Team Providers Care Piecer Name Role Phone Deborah Quiroga APRN Primary Care Provider [phone] Reason for Visit * Consultation (Routine) - Closed Specialty Diagnoses / Procedures Referred By Contkrystle t Referred To Contact Rheumatology Diagnoses Positive FRANCISCO (antinuclear antibody) Arthralgia, unspecified joint Sandy Wu APRN [address] [place] [address] [facility] [address] [place] [address] Referral ID Status Reason Start Date Expiration Date V isits Requested Visits Authorized [id number] Closed Consult, Test & Treat PCP Updated and/or Approved 01/01/2022 01/01/2023 6 6 Encounter Details Date Type Department Care Team (Latest Contact Info) Description 01/20/2022 10:00 AM EDT Office Visit [place] [address] Raymond Loredo MD [facility] [place] [address] Rosacea; Raynaud's phenomenon without gangrene; [...] over radiocarpal or ulnocarpal joints. Hands: Normal blueprint trimmer and claw. SJC/TJC 0/0. Hips: Full motion, [...] can be done locally or here at [facility] that the current time is not particularly interested it seems Raymond Loredo MD documented in this encounter Plan of Treatment Upcoming Encounters Date Type Department Care Team (Late st Contact Info) Description 06/05/2024 2:00 PM EST Hospital Encounter Outpatient [place] [phone] Markel Borjas MD [facility] DR HEMATOLOGY [place] [address] 06/05/2024 2:00 PM EST - 06/05/2024 3:00 PM EST Surgery Outpatient [place] [phone] Markel Borjas MD [facility] DR HEMATOLOGY [place] [address] (OSC MSURG) BONE MARROW BIOPSY AND ASPIRATION; DIAGNOSTIC (WRVU 1.44) 06/23/2024 2:00 PM EST Office Visit Hematology [place] [address] Markel Brojas MD [facility] HEMATOLOGY [place] [address] 11/02/2024 12:00 PM EDT Appointment [place] [address] 11/02/2024 1:00 PM EDT Office Visit [place] [address] Magdalena Peralta MD [facility] DR [place] [address] 03/01/2025 4:15 PM EDT Office Visit Dermatology at [place] [address] [place] [address] Marek Bonilla MD [address], [place] [address] Scheduled Procedures Name Priority Associated Diagnoses Date/Ti [...] syndrome documented in this encounter Care Teams Piecer Relationship Specialty Start Date End Date Deborah Quiroga APRN PCP - General Family Medicine 03/24/16 02/04/23 documented as of this encounter
[2024-06-01 14:17] VITALS: BP 115/53; PULSE 83
--- OUTSIDE RECORDS SUMMARY | 2024-06-01 14:17 | XMS_ITS | Encounter Summary ---
Author Organization [facility] Address [facility] [place] [address] Care Team Providers Care Biometrics Technician Name Role Phone Deborah Quiroga APRN Primary Care Provider [phone] Encounter Details Date Type Department Care Team (Late st Contact Info) Description 03/01/2020 11:30 AM EDT Office Visit Hematology [place] [phone] Patrick Borjas MD [facility] DR [place] [address] Neutropenia, unspecified type Social History Tobacco Use [...] 03/01/2020 11:30 AM EDT Hematology Outpatient Clinic [facility] Hematology Outpatient Consult Note CC: [...] TOUCH PREP, CLOT SECTION, CORE ??BIOPSY); [OSR# [id number], COLLECTED 06/23/2016, 19 SLIDES]: ?1. 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 Extremities: No edema. Labs: Hgb= 12.4 Jfwu=997 ANC= 2.5 Imaging As above - reviewed [...] PM EST Hospital Encounter [place] [address] Patrick Borjas MD [facility] DR [place] [address] 06/05/2024 2:00 PM EST - 06/05/2024 3:00 PM EST Surgery [place] [address] Patrick Borjas MD [facility] DR [place] [address] (OSC MSURG) BONE MARROW BIOPSY AND ASPIRATION; DIAGNOSTIC (WRVU 1.44) 06/23/2024 2:00 PM EST Office Visit Hematology [place] [address] Patrick Borjas MD [facility] DR [place] [address] 11/02/2024 12:00 PM EDT Appointment [place] [address] 11/02/2024 1:00 PM EDT Office Visit [place] [address] Magdalena Peralta MD [facility] [place] [address] 03/01/2025 4:15 PM EDT Office Visit Dermatology at [place] [address] [place] [address] Marek Bonilla MD [address] [place] [address] Scheduled Procedures Name Priority Associated Diagnoses Date/Ti me ([facility] MSURG) BONE MARROW BIOPSY AND ASPIRATION; DIAGNOSTIC (WRVU 1.44) Anemia, in pt with longstanding neutropenia 06/05/2024 2:00 PM EST documented as of this encounter Visit Diagnoses Diagnosis Neutropenia, unspecified type documented in this encounter Care Teams Biometrics Technician Relationship Specialty Start Date End Date Deborah Quiroga APRN PCP - General Family Medicine 03/24/16 02/04/23 documented as of this encounter
--- OUTSIDE RECORDS SUMMARY | 2024-06-01 14:17 | XMS_ITS | Encounter Summary ---
[place] [address] Care Team Providers Care Litigation Attorney Associate Name Role Phone Deborah Quiroga APRN Primary Care Provider [phone] Reason for Referral * Consultation (Routine) - Closed Specialty Diagnoses / Procedures Referred By Contac t Referred To Contact Rheumatology Diagnoses Positive FRANCISCO (antinuclear antibody) Arthralgia, unspecified joint Sandy Wu APRN [address] [place] [address] [facility] [address] [place] [phone] Referral ID Status Reason Start Date Expiration Date V isits Requested Visits Authorized [id number] Closed Consult, Test & Treat PCP Updated and/or Approved 01/01/2022 01/01/2023 6 6 Encounter Details Date Type Department Care Team (Latest Contact Info) Description 01/01/2022 Transcribe Orders eDH Incoming Referrals [phone] Sandy Wu APRN [address] [place], [place] [id number] Positive FRANCISCO (antinuclear antibody); Arthralgia, unspecified joint [...] EST Hospital Encounter Outpatient [place] [address] Markel Borjas MD [facility] DR HEMATOLOGY [place] [address] 06/05/2024 2:00 PM EST - 06/05/2024 3:00 PM EST Surgery Outpatient Surgery Center [place] [phone] Markel Borjas MD [facility] DR HEMATOLOGY [place] [address] ([facility] BONE MARROW BIOPSY AND ASPIRATION; DIAGNOSTIC (WRVU 1.44) 06/23/2024 2:00 PM EST Office Visit Hematology and Oncology at [place] [phone] Markel Borjas MD [facility] HEMATOLOGY [place] [address] 11/02/2024 12:00 PM EDT Appointment [place] [address] 11/02/2024 1:00 PM EDT Office Visit Rheumatology at [place] [phone] Magdalena Peralta MD [facility] [place] [address] 03/01/2025 4:15 PM EDT Office Visit Dermatology at [address] [address] Marek Bonilla MD [address] [place] [address] Scheduled Procedures Name Priority Associated Diagnoses Date/Ti [...] joint documented in this encounter Care Teams Litigation Attorney Associate Relationship Specialty Start Date End Date Deborah Quiroga, DELIVERY ASSISTANT PCP - General Family Medicine 03/24/16 02/04/23 documented as of this encounter
--- OUTSIDE RECORDS SUMMARY | 2024-06-01 14:17 | XMS_ITS | Encounter Summary ---
[place] [address] Care Team Providers Care Hair Spinning Machine Operator Name Role Phone Junaid, Deborah Shields APRN Primary Care Provider [phone] Encounter Details Date Type Department Care Team (Late st Contact Info) Description 10/20/2016 11:20 AM EDT Office Visit [place] [phone] Alirio Esparza MD S/P AVR Social History [...] should continue to see Dr. Burrell, her sales merchandise associate at [facility]. cc: Dr. Burrell documented in this encounter Plan of Treatment Upcoming Encounters Date Type Department Care Team (Late st Contact Info) Description 06/05/2024 2:00 PM EST Hospital Encounter [place]patient [place] [address] Markel Borjas MD [facility] DR [place] [address] 06/05/2024 2:00 PM EST - 06/05/2024 3:00 PM EST Surgery [place] [address] Markel Borjas MD [facility] DR HEMATOLOGY [place] [address] (OSC MSURG) BONE MARROW BIOPSY AND ASPIRATION; DIAGNOSTIC (WRVU 1.44) 06/23/2024 2:00 PM EST Office Visit Hematology and Oncology at [place] [phone] Markel Borjas MD [facility] DR HEMATOLOG[place] [address] 11/02/2024 12:00 PM EDT Appointment Pulmonology at [place] [address] 11/02/2024 1:00 PM EDT Office Visit Rheumatology at [place] [address] Magdalena Peralta MD [facility] [place] [address] 03/01/2025 4:15 PM EDT Office Visit Dermatology at [address] [place] [phone] Marek Bonilla MD [address] [facility] [address], [address] A DERMATOLOGY [place], [place] [phone] Scheduled Procedures Name Priority Associated Diagnoses Date/Ti me (OSC MSURG) BONE MARROW BIOPSY AND ASPIRATION; DIAGNOSTIC (WRVU 1.44) Anemia, in pt with longstanding neutropenia 06/05/2024 2:00 PM EST documented as of this encounter Visit Diagnoses Diagnosis S/P AVR Heart valve replaced by other means documented in this encounter Care Teams Hair Spinning Machine Operator Relationship Specialty Start Date End Date Deborah Quiroga EAR MOLD LABORATORY TECHNICIAN PCP - General Family Medicine 03/24/16 02/04/23 documented as of this encounter
--- OUTSIDE RECORDS SUMMARY | 2024-06-01 14:17 | XMS_ITS | Encounter Summary ---
Author Organization [facility] Address [facility] [place] [address] Care Team Providers Care Reception Centre Manager Name Role Phone Deborah Quiroga APRN Primary Care Provider [phone] Encounter Details Date Type Department Care Team (Latest Contact Info) Description 10/14/2016 - 10/14/2016 11:59 PM EDT Hospital Encounter Radiology Library at [facility] [place] [address] Alirio Esparza MD Pain Discharge Disposition: Home [...] experiencing pain 1-10.). 30 tablet 5 09/25/2016 oxyCODONE (ROXICODONE) 5 mg Tablet Take 1 [...] PM EST Hospital Encounter [place]patient [place] [address] Markel Borjas MD [facility] [address] [place] [address] 06/05/2024 2:00 PM EST - 06/05/2024 3:00 PM EST Surgery [place] [address] Markel Borjas MD [facility] [place] [address] (OSC MSURG) BONE MARROW BIOPSY AND ASPIRATION; DIAGNOSTIC (WRVU 1.44) 06/23/2024 2:00 PM EST Office Visit Hematology [place] [address] Markel Borjas MD [facility] [place] [address] 11/02/2024 12:00 PM EDT Appointment [place] [address] 11/02/2024 1:00 PM EDT Office Visit [place] [address] Magdalena Peralta MD [facility] [place] [address] 03/01/2025 4:15 PM EDT Office Visit Dermatology at [place] [address] [place] [address] Marek Bonilla MD [address], [place] [address] Scheduled Procedures Name Priority Associated Diagnoses Date/Ti [...] Chest (10/14/2016 12:00 AM EDT) Narrative [facility] - 10/14/2016 5:16 PM EDT This exam is for storage only and is auto-finalizing. Alirio Esparza MD IMG FILM LIBRARY OR DERABLES [place], [place] documented in this encounter Visit Diagnoses Diagnosis Pain Generalized pain documented in this encounter Care Teams Reception Centre Manager Relationship Specialty Start Date End Date Deborah Quiroga APRN PCP - General Family Medicine 03/24/16 02/04/23 documented as of this encounter
--- OUTSIDE RECORDS SUMMARY | 2024-06-01 14:17 | XMS_ITS | Encounter Summary ---
[place] [address] Care Team Providers Care Cupola Operator Insulation Name Role Phone Ashley Quirogan Cornelius ANURAG Primary Care Provider [phone] Reason for Visit * Reason Comments Acrochordon Rosacea Encounter Details Date Type Department Care Team (Late st Contact Info) Description 12/05/2020 3:00 PM EDT Office Visit Dermatology at [address] [address] Marek Bonilla MD [address], [place] [address] Inflamed acrochordon Social History Tobacco Use Types [...] month for repeat check. CC: Deborah Quiroga DENTAL MOLD MAKER documented in this encounter Plan of Treatment Upcoming Encounters Date Type Department Care Team (Late st Contact Info) Description 06/05/2024 2:00 PM EST Hospital Encounter [place]patient [place] [phone] Markel Borjas MD [facility] DR HEMATOLOGY [place] [address] 06/05/2024 2:00 PM EST - 06/05/2024 3:00 PM EST Surgery [place] [address] Markel Borjas MD [facility] DR HEMATOLOGY [place] [address] (OSC MSURG) BONE MARROW BIOPSY AND ASPIRATION; DIAGNOSTIC (WRVU 1.44) 06/23/2024 2:00 PM EST Office Visit Hematology and Oncology at [place] [phone] Markel Borjas MD [facility] DR HEMATOLOGY [place] [address] 11/02/2024 12:00 PM EDT Appointment Pulmonology at [place] [phone] 11/02/2024 1:00 PM EDT Office Visit Rheumatology at [place] [phone] Magdalena Peralta MD [facility] [place] [address] 03/01/2025 4:15 PM EDT Office Visit Dermatology at [place] [address] [place] [address] Marek Bonilla MD [address] [place] [address] Scheduled Procedures Name Priority Associated Diagnoses Date/Ti me ([facility]) BONE MARROW BIOPSY AND ASPIRATION; DIAGNOSTIC (WRVU 1.44) Anemia, in pt with longstanding neutropenia 06/05/2024 2:00 PM EST documented as of this encounter Visit Diagnoses Diagnosis Inflamed acrochordon Unspecified hypertrophic and atrophic condition of skin documented in this encounter Care Teams Cupola Operator Insulation Relationship Specialty Start Date End Date Deborah Quiroga APRN PCP - General Family Medicine 03/24/16 02/04/23 documented as of this encounter
--- OUTSIDE RECORDS SUMMARY | 2024-06-01 14:17 | XMS_ITS | Encounter Summary ---
Author Organization [facility] [place] [address] Care Team Providers Care Ballpoint Pens Assembler Name Role Phone Ashley Quirogan Sylvia ANURAG Primary Care Provider [phone] Encounter Details Date Type Department Care Team (Late st Contact Info) Description 12/04/2016 External Results Hematology [place] [phone] Teresa Dodson RN Social History Tobacco Use [...] PM EST Hospital Encounter [place] [address] Markel Borjas MD [facility] [place] [address] 06/05/2024 2:00 PM EST - 06/05/2024 3:00 PM EST Surgery [place] [address] Markel Borjas MD [facility] [place] [address] (OSC MSURG) BONE MARROW BIOPSY AND ASPIRATION; DIAGNOSTIC (WRVU 1.44) 06/23/2024 2:00 PM EST Office Visit [place]ematology [place] [address] Markel Borjas MD [facility] [place] [address] 11/02/2024 12:00 PM EDT Appointment [place] [address] 11/02/2024 1:00 PM EDT Office [place] [address] Magdalena Peralta MD [facility] [place] [address] 03/01/2025 4:15 PM EDT Office Visit Dermatology at [place] [address] [place] [address] Marek Bonilla MD [address], TODD A DERMATOLOGY [place], [place] [address] Scheduled Procedures Name Priority Associated Diagnoses Date/Ti [...] panel (non-fasting) (12/03/2016 11:35 AM EDT) Glucose 85(Loan Funder al Lab) Blood Urea Nitrogen 11(Loan Funder al Lab) Creatinine 0.93(Exte rnal Lab) Sodium 140(Exter nal Lab) Potassium 4.2(Exter nal Lab) Chloride 104(Exter nal Lab) Calcium 10.0(Exte rnal Lab) Protein, Total 8.1(Exter nal Lab) Albumin 3.5(Exter nal Lab) Bilirubin, Total 0.25(Exte rnal Lab) Alkaline Phosphatase 96(Loan Funder al Lab) Aspartate Aminotransferase 18(Loan Funder al Lab) Alanine Aminotransferase 21(Loan Funder al Lab) Blood specimen (specimen) 12/03/2016 11:35 AM EDT Historical Provider CHEMISTRY ORDERAB LES * (ABNORMAL) CBC (with Diff) (12/03/2016 11:35 AM EDT) White Blood Cell 1.61(EXTER NAL/ABN) 4.4 - 10.8 Hemoglobin 13.0(Exter nal Lab) Hematocrit 39.8(Exter nal Lab) Platelet 248(Loan Funder al Lab) Neutrophil Absolute (ANC) - Automated 0.5(BLOCKER AUTOMATIC AL/ABN) Blood specimen (specimen) 12/03/2016 11:35 AM EDT Historical Provider HEMATOLOGY ORDERA BLES documented in this encounter Visit Diagnoses Not on filedocumented in this encounter Care Teams Ballpoint Pens Assembler Relationship Specialty Start Date End Date Deborah Quiroga, GAUGER CHIEF DELIVERY PCP - General Family Medicine 03/24/16 02/04/23 documented as of this encounter
--- OUTSIDE RECORDS SUMMARY | 2024-06-01 14:17 | XMS_ITS | Encounter Summary ---
Author Organization [facility] Erika lópez[place] [address] Care Team Providers Care Mold Cutting Machine Operator Name Role Phone Deborah Quiroga Sylvia OSBORN Primary Care Provider [phone] Encounter Details Date Type Department Care Team (Late st Contact Info) Description 01/13/2021 Refill Dermatology at [address] [address] Taylor Malone, AIR GUN OPERATOR Social History Tobacco Use Types Packs/Day [...] PM EST Hospital Encounter Outpatient [place] [address] Markel Borjas MD [facility] [place] [address] 06/05/2024 2:00 PM EST - 06/05/2024 3:00 PM EST Surgery [place] [address] Markel Borjas MD [facility] DR [place] [address] (OSC MSURG) BONE MARROW BIOPSY AND ASPIRATION; DIAGNOSTIC (WRVU 1.44) 06/23/2024 2:00 PM EST Office Visit Hematology [place] [address] Markel Borjas MD [facility] DR [place] [address] 11/02/2024 12:00 PM EDT Appointment [place] [address] 11/02/2024 1:00 PM EDT Office Visit Rheumatology at [place] [phone] Magdalena Peralta MD [facility] [place] [address] 03/01/2025 4:15 PM EDT Office Visit Dermatology at [place] [address] [place] [address] Marek Bonilla MD [address], TODD A DERMATOLOGY [place], [place] [address] Scheduled Procedures Name Priority Associated Diagnoses Date/Ti me ([facility]C MSURG) BONE MARROW BIOPSY AND ASPIRATION; DIAGNOSTIC (WRVU 1.44) Anemia, in pt with longstanding neutropenia 06/05/2024 2:00 PM EST documented as of this encounter Visit Diagnoses Not on filedocumented in this encounter Care Teams Mold Cutting Machine Operator Relationship Specialty Start Date End Date Deborah Quiroga APRN PCP - General Family Medicine 03/24/16 02/04/23 documented as of this encounter
--- OUTSIDE RECORDS SUMMARY | 2024-06-01 14:17 | XMS_ITS | Encounter Summary ---
Author Organization [facility] Address [facility] [place] [address] Care Team Providers Care Camera Repairer Name Role Phone Junaid Deborah Shields APRN Primary Care Provider [phone] Reason for Visit * Reason Comments Schedule Office Case Pain right leg Encounter Details Date Type Department Care Team (Late st Contact Info) Description 12/11/2016 9:00 AM EDT Office Visit Hematology [place] [address] Markel Borjas MD [facility] DR HEMATOLOG[place] [address] Neutropenia, unspecified type Social History Tobacco Use [...] 12/11/2016 9:00 AM EDT Hematology Outpatient Clinic [facility] Hematology Outpatient Consult Note CC: 60 year [...] TOUCH PREP, CLOT SECTION, CORE ??BIOPSY); [OSR# [id number], COLLECTED 06/23/2016, 19 SLIDES]: ?1. 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 Extremities: No edema. Labs: Hgb= 13 Fslh=317 ANC= 0.5 Imaging As above - reviewed [...] PM EST Hospital Encounter Outpatient [place] [address] Markel Borjas MD [facility] DR HEMATOLOG[place] [address] 06/05/2024 2:00 PM EST - 06/05/2024 3:00 PM EST Surgery Outpatient [place] [address] Markel Borjas MD [facility] DR HEMAT[place] [address] (OSC MSURG) BONE MARROW BIOPSY AND ASPIRATION; DIAGNOSTIC (WRVU 1.44) 06/23/2024 2:00 PM EST Office Visit Hematology [place] [address] Markel Borjas MD [facility] DR [place]EMAT[place] [address] 11/02/2024 12:00 PM EDT Appointment [place] [address] 11/02/2024 1:00 PM EDT Office Visit Rheumatology at [place] [phone] Magdalena Peralta MD [facility] [place] [address] 03/01/2025 4:15 PM EDT Office Visit Dermatology at [place] [address] [place] [address] Marek oBnilla MD [address] Katherine DERMATOLOGY [place], [place] [address] Scheduled Procedures Name Priority Associated Diagnoses Date/Ti [...] type documented in this encounter Care Teams Camera Repairer Relationship Specialty Start Date End Date Deborah Quiroga APRN PCP - General Family Medicine 03/24/16 02/04/23 documented as of this encounter
--- OUTSIDE RECORDS SUMMARY | 2024-06-01 14:17 | XMS_ITS | Encounter Summary ---
[place] [address] Care Team Providers Care Dock Operations Supervisor Name Role Phone JunaidDeborah APRN Primary Care Provider [phone] Reason for Visit * Reason Comments Follow-up Encounter Details Date Type Department Care Team (Late st Contact Info) Description 01/10/2021 4:30 PM EDT Office Visit Dermatology at [place] [address] [facility] [place] [phone] Marek Bonilla MD [address] [facility] DERMATOLOGY [place], [place] [id number] Rosacea Social History Tobacco Use Types Packs/Day [...] cutaneous and ocular 2. Previously told by global position system technician that she had corneal tears from [...] 3 refills. Will call this in her [facility] in [place] 3. Continue metronidazole 0.75% gel applying once [...] PM EST Hospital Encounter [facility] [place] [address] Markel Borjas MD [facility] DR HEMATOLOGY AND [place] [address] 06/05/2024 2:00 PM EST - 06/05/2024 3:00 PM EST Surgery [facility] [place] [phone] Markel Borjas MD [facility] DR HEMATOLOGY AND [place] [address] (OSC MSURG) BONE MARROW BIOPSY AND ASPIRATION; DIAGNOSTIC (WRVU 1.44) 06/23/2024 2:00 PM EST Office Visit Hematology [place] [address] Markel Borjas MD [facility] DR HEMATOLOGY [place] [address] 11/02/2024 12:00 PM EDT Appointment [place] [address] 11/02/2024 1:00 PM EDT Office [place] [address] Magdalena Peralta MD [facility] [place] [address] 03/01/2025 4:15 PM EDT Office Visit Dermatology at [place] [address] [facility] [place] [phone] Marek Bonilla MD [address] [place] [address] Scheduled Procedures Name Priority Associated Diagnoses Date/Ti me (OSC MSURG) BONE MARROW BIOPSY AND ASPIRATION; DIAGNOSTIC (WRVU 1.44) Anemia, in pt with longstanding neutropenia 06/05/2024 2:00 PM EST documented as of this encounter Visit Diagnoses Diagnosis Rosacea documented in this encounter Care Teams Dock Operations Supervisor Relationship Specialty Start Date End Date Deborah Quiroga APRN PCP - General Family Medicine 03/24/16 02/04/23 documented as of this encounter
--- OUTSIDE RECORDS SUMMARY | 2024-06-01 14:17 | XMS_ITS | Encounter Summary ---
Author Organization [facility] [place] [address] Care Team Providers Care Warp Changer Name Role Phone Ashley Quirogazac Shields APRN Primary Care Provider [phone] Reason for Referral * Consultation (Routine) - Specialty Diagnoses / Procedures Referred By Contact Referred To Contact Cardiac Rehabilitation Diagnoses S/P AVR Alirio Esparza MD [facility] [place] [address] Cardiac Rehab, [address] [place] [address] Referral ID Status Reason Start Date Expiration Date V isits Requested Visits Authorized [id number] Consult, Test & Treat 09/25/2016 03/24/2017 36 36 Reason for Visit * Auth/Cert Specialty Diagnoses / Procedures Referred By Contkrystle t Referred To Contact Diagnoses Aortic stenosis Procedures PRO REPLACE AORT VALV, PROSTH VALV @REPLACE AORTIC VALVE, OPEN, W\CPB, W\PROSTHETIC VALVE (WRVU 41.32) Referral ID Status Reason Start Date Expiration Date Visits Re quested Visits Authorized [id number] 1 1 Encounter Details Date Type Department Care Team (Latest Contact Info) Description 09/21/2016 6:08 AM EST - 09/25/2016 4:33 PM EST Hospital Encounter Intermediate [place] [id number] Alirio Esparza MD Aortic valve stenosis, unspecified [...] Patient Age: 61 y.o. Birthdate: 1955 Language: Maori Race: White Ethnicity: Not nor Admit Date: 09/21/2016 Discharge Date: 09/25/2016 Attending Physician: Alirio Esparza MD Follow-up Recommendations for Providers: Please continue routine management of cardiovascular risk factors including blood pressure, lipids,glucose, etc. Please note any changes to medications. Patient to follow-up with PCP, Deborah Quiroga APRN, in 1-2 weeks. Patient to follow-up with [facility], Dr. Antelmo Burrell, in two weeks. Patient to follow-up with Cardiac Surgery, Dr. Alirio Esparza, to be scheduled for before 10/19/2016, with CXR, EKG, and Echo. Inpatient Provider Contact Information: [facility] Section of Cardiac Surgery [facility] [address] FAX [phone] Discharge Diagnoses (Hospital Problems) Primary Diagnoses: Secondary [...] Hospital Course: Purnima Thacker was admitted to [facility] on 09/21/2016 via the Same Day Program. [...] from your chest incision. Your surgeon, Dr. Aliiro Esparza and/or the Cardiac Surgery Physician Nursing Techn Team may be reached at . Antibiotic [...] Dr. Alirio Jones. You may use a [place] Track or treadmill but avoid any pulling [...] friends, go to a movie, go to temple, etc. Heavy activities: No hunting, skiing, jogging, [...] the outpatient Phase 2 Cardiac Rehabilitation at [facility]. The patient agrees to a referral to this program. The referral will be sent at discharge and the patient should be contacted by the program within 1- 2 weeks from discharge. Future Appointments and Orders Future Appointments Provider Department Dept Phone 11/20/2016 11:30 AM Markel Borjas MD [facility] [phone] Future Orders Complete By Expires Echocardiogram Transthoracic([place]) [[id number] Custom] 10/18/2016 (Approximate) 09/18/2017 Process Instructions: If the Echocardiogram is to be PERFORMED in a location other than [place]--STOP and order [id number], Echocardiogram South/External. Scheduling Instructions: Questions: Is a Bubble Study requested?: No Does the patient have Congenital Heart Disease?: No Does patient require sedation?: None GA rationale: Should this service be billed to the research sponsor?: EKG 12 Lead [EKG1 Custom] 10/18/2016 (Approximate) 09/25/2017 Process Instructions: Scheduling Instructions: Questions: Which location will this be performed?: [place] Is a rhythm strip needed?: No If EKG Reason is Pre-op Evaluation, indicate diagnosis for surgery.: Should this service be billed to the research sponsor?: XR Chest PA & Lateral (Generic) [[id number] Custom] 10/18/2016 (Approximate) 09/25/2017 Process Instructions: Scheduling Instructions: Questions: Where will study be performed?: [facility]- Radiology Portable exam?: No Reason for exam and clinical history: s/p AVReplacement, patch annuloplasty 1 month f/u Other pertinent information: Stat read required?: Date of injury if applicable: Requested Time: Referral to Cardiac Rehab [[id number] Custom] As directed Process Instructions: If no progress note charted, please enter Clinical details in comments. Scheduling Instructions: Questions: My question or request is: s/p AVR. Cardiac rehab at [facility] Referral to Home Health - at DISCHARGE [[id number] CPT(R)] As directed Process Instructions: Scheduling Instructions: Comments: DOCUMENTATION FOR VNA SERVICES (INCLUDING THOSE PATIENTS WITH MEDICARE COVERAGE REQUIRING HOME VNA SERVICES AND/OR HOSPICE SERVICES) PATIENT'S LOCATION: Purnima Magalie Kirstie [address] [place] [phone] (home) No relevant phone numbers on file. Manager Hospice's Name: self In discussion with the attending physician, it is certified that this patient is under their care and that they, or a Nurse Practitioner, or Physician Nursing Techn who is working directly with them, hada [...] for services as follows: HOME HEALTH AGENCY: [facility] PHONE: [phone] FAX: [phone] RN orders: Cardiopulmonary assessment, incisional assessment, assess [...] issues please call the Cardiac SurgeryOffice at [phone] FOR MEDICARE ONLY: In discussion with the [...] contact information: [facility] VNA Patient location post discharge: home What services are requested: Registered Nurse Physical Therapy Occupational Therapy Start date: Responsible MD post discharge contact info: Arrangements for VNA/home care: As above. VN RN OR PCP TO PLEASE REMOVE CHEST TUBE SUTURES ON OR AFTER 09/30/16 Signed: Crispin Aranda PA-C 09/25/2016 [facility] Section of Cardiac Surgery [facility] [address] FAX [phone] Date: 09/25/2016 CC: ANURAG Alford Caryn E, APRN [address] [place] [address] documented in this encounter Discharge Instructions * [...] Alirio Esparza and/or the Cardiac Surgery Physician Nursing Techn Team may be reached at . Antibiotic [...] Dr. Alirio Jones. You may use a [place] Track or treadmill but avoid any pulling [...] friends, go to a movie, go to temple, etc. Heavy activities: No hunting, skiing, jogging, [...] the outpatient Phase 2 Cardiac Rehabilitation at [facility]. The patient agrees to a referral [...] experiencing pain 1-05/11.). 30 tablet 5 09/25/2016 furosemide (LASIX) 20 mg Tablet Take 1 [...] PM EST Cardiac Surgery Progress Note: ID: [id number] S/p AVR, patch aortoplasty POD#2. PMH of [...] Gas) No results found for: PHART, PO2ART, AAU5OJZ Assessment/Plan: TPW out this am. (+) BM. [...] Signed: Crispin Aranda PA-C 09/24/2016 Team pager: [phone] after 5pm [facility] Section of Cardiac Surgery * Leonor Henson, JUDICIAL CLERK - 09/23/2016 10:48 AM EST Cardiac Surgery Progress Note: ID: [id number] s/p AVR, patch aortoplasty POD#2. PMH of [...] Gas) No results found for: PHART, PO2ART, PWM4JPA Assessment/Plan: s/p AVR, patch aortoplasty POD#2. PMH of Neutropenia, HLD, HTN, Depression, obesity, . [facility] and doing well. Pathway. Will dc al today. To maintain SBP<120 Neuro: frequent neuro checks, scheduled APAP, Oxycodone prn, Wellbutrin 150' CV: continue telemetry, Lopressor 12.5'' increased to 25mg BID, Hydralazine prn (maintain SBP <120) Resp: hourly IS, therapep, pulse oximetry GI: advance diet as tolerated, daily Protonix, RBO's : La dc'd, (+) void post removal, strict I+O Renal: replete K+ prn, startedLasix 20mgIV BID ID: Fluconazole 200 PO daily. Heme: daily ASA 81', Endo: No needs identified Dispo: ICCU DW Attending Surgeon on rounds. Signed: Leonor Henson APRN [facility] Section of Cardiac Surgery Date: 09/23/2016 * Nico Palacios PA - 09/22/2016 9:56 AM EST Cardiac Surgery Progress Note: ID: [id number] s/p AVR, patch aortoplasty POD#1. PMH of [...] NT, ND, soft. Ext: Moves all extremities. Twodot, well perfused. Incisions: C/D/I Tubes/Lines/Drains: PIV, leanna, [...] Attending Surgeon on rounds. Signed: EKATERINA KIM [facility] Section of Cardiac Surgery Date: 09/22/2016 * [...] with outpatient services Lalitha Cohen SPTA Pager: [phone] Inpatient Physical Therapy Patient status, treatment interventions, and goals discussed with student. I am in agreement with all details and associated flowsheet rows as documented and was present for all aspects of the patient treatment session. Nerykatrina Jaramillo, [facility] Pager [phone] Problem: Acute Rehab Services Goal & Intervention Plan Goal: Bed Mobility Goal Stand Alone Therapy Goal Outcome: Ongoing (Interventions Implemented as Appropriate) 09/22/16 16109/25/16 09 Bed Mobility Goal Bed Mobility Goal, Time to Achieve 4 days -- Bed Mobility Goal, Activity Type scoot/bridge;supine to sit/sit to supine -- Bed Mobility Goal, Metcalfe Level independent -- Bed Mobility Goal, Additional [...] Achieve 4 days -- Gait Training Goal, Metcalfe Level independent -- Gait Training Goal, Distance [...] assist, home with home health Lalitha Cohen [facility] Pager: [phone] Inpatient Physical Therapy Patient status, treatment interventions, and goals discussed with student. I am in agreement with all details and associated flowsheet rows as documented and was present for all aspects of the patient treatment session. Nery Jaramillo, [facility] Pager [phone] Problem: Acute Rehab Services Goal & Intervention Plan Goal: Bed Mobility Goal Stand Alone Therapy Goal Outcome: Ongoing (Interventions Implemented as Appropriate) 09/22/16 16109/23/16 1412 Bed Mobility Goal Bed Mobility Goal, Time to Achieve 4 days -- Bed Mobility Goal, Activity Type scoot/bridge;supine to sit/sit to supine -- Bed Mobility Goal, Metcal[place] Level independent -- Bed Mobility Goal, Additional [...] Achieve 4 days -- Gait Training Goal, Met[place] Level independent -- Gait Training Goal, Distance [...] days -- Transfer Training Goal, Activity Type fzj-es-iftzd/jpvrv-ut-lyq;yrh-pe-oinmi/gfrag-te-yzh -- Transfer Train Goal, Metcalfe Level independent -- Transfer Training Goal, Additional Goal abides sternal precautions -- Transfer Training Goal, Outcome -- goal met * Consult Note - Jana Crenshaw RN - 09/23/2016 9:41 AM EST [facility] Purnima Thacker was seen today regarding participation in the outpatient Phase 2 Cardiac Rehabilitation at [facility]. The patient agrees to a referral [...] Another Service: (cardiac rehab) NICOLE HERNANDEZ, PT Pager:[phone] Inpatient Physical Therapy Problem: Acute Rehab Services Goal & Intervention Plan Goal: Bed Mobility Goal Stand Alone Therapy Goal Outcome: Ongoing (Interventions Implemented as Appropriate) 09/22/16 1611 Bed Mobility Goal Bed Mobility Goal, Time to Achieve 4 days Bed Mobility Goal, Activity Type scoot/bridge;supine to sit/sit to supine Bed Mobility Goal, Metcalfe Level independent Bed Mobility Goal, Additional Goal able to abide sternal precautions during transfers Goal: Gait Training Goal Stand Alone Therapy Goal Outcome: Ongoing (Interventions Implemented as Appropriate) 09/22/16 1611 Gait Training Goal Gait Training Goal, Date Established 09/22/16 Gait Training Goal, Time to Achieve 4 days Gait Training Goal, Metcalfe Level independent Gait Training Goal, Distance to Achieve ascend and descends 2 steps independently Goal: Goal Transfer Training Stand Alone Therapy Goal Outcome: Ongoing (Interventions Implemented as Appropriate) 09/22/16 1611 Goal Transfer Training Transfer Training Goal, Time to Achieve 4 days Transfer Training Goal, Activity Type udb-bx-aqgdi/gsjje-bj-kgj;wdb-ps-tenbk/jqrod-tc-lms Transfer Train Goal, Metcalfe Level independent Transfer Training Goal, Additional Goal [...] of completing AD's at home, chooses her bxbcmt-wu-yjg, Martha Thacker (home) for her [facility], 2nd choice in friend, Nitesh Leroy [place], [place] Current Coping/Education/Information Needs: patient sitting up [...] who live close by, [place], and her hkllbu-xo-cmc Martha Thacker who she has chosen to be her DPOAH. Also has a friend Nitesh Leroy who lives in [place], [place], also her DPOAH choice. Behavioral Health History: none on file in e[facility] Substance Use/Abuse: none on file in [facility] Other Pertinent/Service Specific Information: none Health/Prescription Coverage: Primary Insurance: [employer] Secondary Insurance: none Prescription Coverage: yes, per patient no issues Preferred Pharmacy: ?? Other: none Primary Care Provider: Deborah Quiroga, JUDICIAL CLERK [phone] Patient/Caregiver Goals of Treatment: per medical team recommendations at discharge for CT surgery Potential Needs for Transition of Care: Rehab/SNF: TBD Home Health: TBD DME: no Dialysis: no Community Resources: non3 Transportation: ride home with a friend Other: none Anticipated Barriers to Discharge/Special Considerations: none anticipated at this time Plan: patient will need VNA services at discharge. The patient/premium representative has been provided a list of Home Health Agencies/DME vendors which servetheir preferred geographic area. A letter describing our affiliations was reviewed with them and they were educated about their right to choose where referrals are placed. Patient requests referral to: [facility]. PHONE: [phone] FAX: [phone] Expected date of discharge: Fri/Sat? CM called VNA to confirm referral, talked with VALDO Bunn/intake who stated she was familiar w/patient & would monitor her progress through curaspan. Referral routed to the Medical Practice Manager for matching with agency/vendor and to provide any required information. A member of the Care Management team will continue to monitor progress, follow for continuity of care and assist with transition of care planning. Amanda Moreno RN Pager: [phone] * Op Note - Alirio Esparza MD - 09/21/2016 12:53 PM EST 09/23/2016 Purnima Thacker 1955 [id number] Preoperative Diagnosis: Symptomatic aortic stenosis Postoperative Diagnosis: Symptomatic aortic stenosis Procedure: Aortic valve replacement: Bovine Pericardial 25 mm Surgeon: Alirio Esparza M.D. Nursing Techn: Philip BALL Anesthesia: General endotracheal anesthesia Drains: [...] Operative Note Patient Name: Purnima Thacker : [id number] MR#: [id number] Case Date: 09/21/2016 Surgeon: Surgeon(s) and Role: * Alirio Esparza MD - Primary * Nico Palacios PA - Physician Nursing Techn Preoperative diagnosis: Postoperative diagnosis: Procedure(s) (LRB): @REPLACE [...] PM EST Hospital Encounter [place] [address] Markel Borjas MD [facility] [address] [place] [address] 06/05/2024 2:00 PM EST - 06/05/2024 3:00 PM EST Surgery [place]patient [place] [phone] Markel Borjas MD [facility] [address] [place] [address] (OSC MSURG) BONE MARROW BIOPSY AND ASPIRATION; DIAGNOSTIC (WRVU 1.44) 06/23/2024 2:00 PM EST Office Visit [place] [phone] Markel Borjas MD [facility] [place] [address] 11/02/2024 12:00 PM EDT Appointment [place] [address] 11/02/2024 1:00 PM EDT Office [place] [address] Magdalena Peralta MD [facility] [place] [address] 03/01/2025 4:15 PM EDT Office Visit Dermatology at [place] [address] [place] [address] Marek Bonilla MD [address], [place] [address] Scheduled Orders Name Type Priority Associated Diagnoses [...] IMPLANTABLE DEVICES SCAN 09/26/2016 12:00 AM EST ANAESTHETIC TECHNICIAN SCAN 09/26/2016 12:00 AM EST POTASSIUM Routine [...] 09/22/2016 4:00 AM EST CARDIAC ENZYMES ([facility]) Routine 09/22/2016 4:00 AM EST CREATININE Routine [...] SCAN EXT O RDR/RSLT * SCAN DOC: ANAESTHETIC TECHNICIAN (09/26/2016 12:00 AM EST) Anatomical Region Laterality [...] MD CHEMISTRY ORDERABLE S [facility] [place] [address] * (ABNORMAL) Differential, Automated (09/24/2016 9:56 AM EST) [facility] Neutrophil % 76.8 % [facility] Neutrophil Absolute 7.79(H) 1.70 - 6.10 x10(3)/mc L [facility] Lymph % 11.1 % [facility] Lymphocytes Abs 1.1 0.9 - 3.2 x10(3)/mc L [facility] Monocyte % 8.5 % [facility] Monocyte Abs 0.9 0.3 - 0.9 x10(3)/mc L [facility] Eos % 0.5 % [facility] Eosinophils Abs 0.0 0.0 - 0.4 x10(3)/mc L [facility] Basophil % 0.2 % [facility] Baso [...] [facility] Co de Phone Number [facility] [place] [address] * (ABNORMAL) Hemogram (09/24/2016 9:56 AM EST) White Blood Cell 10.1(H) 4.0 - 9.5 x10(3)/ L [facility] Red Blood Cell 2.87(L) 4.00 - 5.21 x10(6)/[facility] LABORATORY Hemoglobin 9.4(L) 11.7 - 15.5 gm/dL [facility] Hematocrit 28.3(L) 35.7 - 45.8 % [facility] Mean Cell Volume 98.6(H) 82.6 - 94.4 fL [facility] Mean Cell Hemoglobin 32.8(H) 27.1 - 32.0 pg [facility] Mean Cell Hemoglobin Concentration 33.2 31.7 - 35.0 gm/dL [facility] Platelet 141(L) 145 - 357 x10(3)/[facility] LABORATORY RDW Standard Deviation 45.0 37.0 - 46.0 fL [facility] RDW coefficient of variation 12.6 11.5 - 14.1 % [facility] Mean Platelet Volume 9.4 7.6 - 12.9 fL [facility] NRBC% auto 1.1 % [facility] NRBC Absolute 0.110(H) 0.000 - 0.000 x10(3)/ L [facility] Blood specimen (specimen) 09/24/2016 9:56 AM EST 09/24/2016 10:04 AM EST Narrative Resulting Agency Comment Spec In Lab Alirio Esparza MD HEMATOLOGY ORDERABL ES [facility] [place] [address] * (ABNORMAL) Basic Metabolic Panel (non-fasting) (09/24/2016 [...] the following links into your internet browser. [email or web address] Blood specimen (specimen) 09/24/2016 9:56 AM EST 09/24/2016 10:04 AM EST Narrative Resulting Agency Comment Spec In Lab Alirio Esparza MD CHEMISTRY ORDERABLE S [facility] [place] [address] * XR Chest PA & Lateral (Generic) [...] MD CHEMISTRY ORDERABLE S [facility] [place] [address] * POCT Glucose (09/22/2016 8:17 AM EST) [facility] Glucose, POC 131 65 - 199 mg/dL [facility] Comment: Supplemental ranges: <140 mg/dL before meals <180 mg/dL all other times of the day Blood specimen (specimen) 09/22/2016 8:17 AM EST 09/22/2016 8:17 AM EST Alirio Esparza MD POINT OF CARE TEST ORDERABLES Performing Organization Address [facility]/ZIP Co de Phone Number [facility] [place] [address] * POCT Glucose (09/22/2016 4:01 AM EST) [facility] Glucose, POC 135 65 - 199 mg/dL [facility] Comment: Supplemental ranges: <140 mg/dL before meals <180 mg/dL all other times of the day Blood specimen (specimen) 09/22/2016 4:01 AM EST 09/22/2016 4:01 AM EST Alirio Esparza MD POINT OF CARE TEST ORDERABLES Performing Organization Address City/[facility]/ZIP Co de Phone Number [facility] [place] [address] * Scan, Peripheral Blood (09/22/2016 4:00 AM EST) [facility] Plat estimate Normal [facility] RBC Morphology Abnormal [facility] Macrocyte 1-5 /HPF [facility] Plat, Giant Less than 1 /HPF [facility] Blood specimen (specimen) 09/22/2016 4:00 AM EST 09/22/2016 4:34 AM EST Narrative Resulting Agency Comment Spec In Lab Alirio Esparza MD HEMATOLOGY ORDERABL ES Performing Organization Address City/[facility]/ZIP Co de Phone Number [facility] [place] [address] * Electrolytes panel (09/22/2016 4:00 AM EST) [facility] Sodium 145 135 - 145 mmol/L [facility] [...] CHEMISTRY ORDERABLE S Performing Organization Address City/[facility]/ZIP Co de Phone Number [facility] [place] [address] * (ABNORMAL) Differential, Automated (09/22/2016 4:00 AM EST) [facility] Neutrophil % 70.9 % [facility] Neutrophil Absolute 5.33 1.70 - 6.10 x10(3)/mc L [facility] Lymph % 9.1 % [facility] Lymphocytes Abs 0.7(L) 0.9 - 3.2 x10(3)/ L [facility] Monocyte % 18.0 % [facility] Monocyte Abs 1.4(H) 0.3 - 0.9 x10(3)/ L [facility] Eos % 0.0 % [facility] Eosinophils Abs 0.0 0.0 - 0.4 x10(3)/[facility] LABORATORY Basophil % 0.1 % [facility] Baso Absolute 0.0 0.0 - 0.1 x10(3)/[facility] LABORATORY Immature Gran % 1.90 % [facility] [...] [facility] Co de Phone Number [facility] [place] [address] * (ABNORMAL) Hemogram (09/22/2016 4:00 AM EST) White Blood Cell 7.5 4.0 - 9.5 x10(3)/[facility] LABORATORY Red Blood Cell 2.93(L) 4.00 - 5.21 x10(6)/mc L [facility] Hemoglobin 9.2(L) 11.7 - 15.5 gm/dL [facility] Hematocrit 28.0(L) 35.7 - 45.8 % [facility] Mean Cell Volume 95.6(H) 82.6 - 94.4 fL [facility] Mean Cell Hemoglobin 31.4 27.1 - 32.0 pg [facility] Mean Cell Hemoglobin Concentration 32.9 31.7 - 35.0 gm/dL [facility] Platelet 161 145 - 357 x10(3)/mc L [facility] RDW Standard Deviation 44.0 37.0 - 46.0 fL [facility] RDW coefficient of variation 12.6 11.5 - 14.1 % [facility] Mean Platelet Volume 9.3 7.6 - 12.9 fL [facility] NRBC% auto 0.3 % [facility] NRBC Absolute 0.020(H) 0.000 - 0.000 x10(3)/mc L [facility] Blood specimen (specimen) 09/22/2016 4:00 AM EST 09/22/2016 4:34 AM EST Narrative Resulting Agency Comment Spec In Lab Alirio Esparza MD HEMATOLOGY ORDERABL ES Performing Organization Address City/State/[facility] Co de Phone Number [facility] [place] [address] * (ABNORMAL) Cardiac Enzymes (09/22/2016 4:00 AM EST) Troponin-T 0.13(H) <=0.03 ng/mL [facility] Comment: 0.03 ng/mL: Represents the 99th percentile upper reference limit for normals. >0.03 ng/mL: Elevated cardiac troponin T level indicative of myocardial damage. Diagnosis of acute, evolving or recent [place] requires a typical rise and gradual fall [...] MD CHEMISTRY ORDERABLE S Performing Organization Address [facility] Co de Phone Number [facility] [place] [address] * (ABNORMAL) Glucose, fasting (09/22/2016 4:00 AM [...] MD CHEMISTRY ORDERABLE S Performing Organization Address [facility] Co de Phone Number [facility] [place] [address] * (ABNORMAL) Creatinine (09/22/2016 4:00 AM EST) [...] the following links into your internet browser. [email or web address] Blood specimen (specimen) 09/22/2016 4:00 AM EST 09/22/2016 4:34 AM EST Narrative Resulting Agency Comment Spec In Lab Alirio Esparza MD CHEMISTRY ORDERABLE S Performing Organization Address [facility] Co de Phone Number [facility] [place] [address] * BUN (09/22/2016 4:00 AM EST) Pathologist [facility] Blood Urea Nitrogen 10 8 - 18 mg/dL [facility] Blood specimen (specimen) 09/22/2016 4:00 AM EST 09/22/2016 4:34 AM EST Narrative Resulting Agency Comment Spec In Lab Alirio Esparza MD CHEMISTRY ORDERABLE S Performing Organization Address [facility] Co de Phone Number [facility] [place] [address] * POCT Glucose (09/21/2016 9:59 PM EST) Glucose, POC 146 65 - 199 mg/dL [facility] Comment: Supplemental ranges: <140 mg/dL before meals <180 mg/dL all other times of the day Blood specimen (specimen) 09/21/2016 9:59 PM EST 09/21/2016 9:59 PM EST Alirio Esparza MD POINT OF CARE TEST ORDERABLES Performing Organization Address City/[facility]/ZIP Co de Phone Number [facility] [place] [address] * POCT Glucose (09/21/2016 7:26 PM EST) Glucose, POC 152 65 - 199 mg/dL [facility] Comment: Supplemental ranges: <140 mg/dL before meals <180 mg/dL all other times of the day Blood specimen (specimen) 09/21/2016 7:26 PM EST 09/21/2016 7:26 PM EST Alirio Esparza MD POINT OF CARE TEST ORDERABLES Performing Organization Address [facility] Co de Phone Number [facility] [place] [address] * POCT Glucose (09/21/2016 6:00 PM EST) Glucose, POC 146 65 - 199 mg/dL [facility] Comment: Supplemental ranges: <140 mg/dL before meals <180 mg/dL all other times of the day Blood specimen (specimen) 09/21/2016 6:00 PM EST 09/21/2016 6:00 PM EST Alirio Esparza MD POINT OF CARE TEST ORDERABLES Performing Organization Address City/[facility] Co de Phone Number [facility] [place] [address] * (ABNORMAL) BLOOD GAS 2 ARTERIAL (09/21/2016 4:42 PM EST) pH, Arterial 7.35(L) 7.35 - 7.45 [facility] [...] [facility] FIO2 Art 40 % [facility] PF Ratio Art 270 [facility] Blood specimen (specimen) 09/21/2016 4:42 PM EST 09/21/2016 4:42 PM EST Alirio Esparza MD POINT OF CARE TEST ORDERABLES [facility] [place] [address] * POCT Glucose (09/21/2016 4:07 PM EST) Glucose, POC 150 65 - 199 mg/dL [facility] Comment: Supplemental ranges: <140 mg/dL before meals <180 mg/dL all other times of the day Blood specimen (specimen) 09/21/2016 4:07 PM EST 09/21/2016 4:07 PM EST Alirio Esparza MD POINT OF CARE TEST ORDERABLES Performing Organization Address [facility] Co me Phone Number [facility] [place] [address] * (ABNORMAL) Hemoglobin (09/21/2016 4:05 PM EST) [facility] Hemoglobin 9.9(L) 11.7 - 15.5 gm/dL [facility] Blood specimen (specimen) 09/21/2016 4:05 PM EST 09/21/2016 4:20 PM EST Narrative Resulting Agency Comment Spec In Lab Alirio Esparza MD HEMATOLOGY ORDERABL ES Performing Organization Address [facility] Phone Number [facility] [place] [address] * Potassium (09/21/2016 4:05 PM EST) [facility] Potassium 4.6 3.5 - 5.0 mmol/L [facility] [...] MD CHEMISTRY ORDERABLE S Performing Organization Address [facility]/State/ZIP Co de Phone Number [facility] [place] [address] * POCT Glucose (09/21/2016 2:52 PM EST) Glucose, POC 117 65 - 199 mg/dL [facility] Comment: Supplemental ranges: <140 mg/dL before meals <180 mg/dL all other times of the day Blood specimen (specimen) 09/21/2016 2:52 PM EST 09/21/2016 2:52 PM EST Alirio Esparza MD POINT OF CARE TEST ORDERABLES Performing Organization Address City/[facility]/ZIP Co de Phone Number [facility] [place] [address] * POCT Glucose (09/21/2016 1:51 PM EST) Glucose, POC 108 65 - 199 mg/dL [facility] Comment: Supplemental ranges: <140 mg/dL before meals <180 mg/dL all other times of the day Blood specimen (specimen) 09/21/2016 1:51 PM EST 09/21/2016 1:51 PM EST Alirio Esparza MD POINT OF CARE TEST ORDERABLES [facility] [place] [address] * POCT Glucose (09/21/2016 12:54 PM EST) Glucose, POC 128 65 - 199 mg/dL [facility] Comment: Supplemental ranges: <140 mg/dL before meals <180 mg/dL all other times of the day Blood specimen (specimen) 09/21/2016 12:54 PM EST 09/21/2016 12:54 PM EST Alirio Esparza MD POINT OF CARE TEST ORDERABLES [facility] [place] [address] * EKG 12 Lead (09/21/2016 12:26 PM EST) Ventricular rate 87 BPM MUSE SYSTEM Atrial Rate 87 BPM MUSE SYSTEM P-R Interval 256 ms MUSE SYSTEM QRS Duration 90 ms MUSE SYSTEM Q-T Interval 406 ms MUSE SYSTEM QTC Calculated (Bezet) 488 ms MUSE SYSTEM Calculated P Dunlevy 24 degrees MUSE SYSTEM Calculated R Dunlevy 21 degrees MUSE SYSTEM Calculated T Dunlevy -5 degrees MUSE SYSTEM INTERPRETATION Sinus rhythm [...] course of the esophagus and below the [id number]. There is a right IJ PA catheter [...] the course of theesophagus and below the [id number]-[id number]. There is a right IJ PA catheter [...] [facility] FIO2 Art 100 % [facility] PF Ratio Art 356 [facility] Blood specimen (specimen) 09/21/2016 12:20 PM EST 09/21/2016 12:20 PM EST Alirio Esparza MD POINT OF CARE TEST ORDERABLES Performing Organization Address City/State/[facility] Co de Phone Number [facility] [place] [address] * (ABNORMAL) BLOOD GAS 2 ARTERIAL (09/21/2016 [...] [facility] FIO2 Art 95 % [facility] Flow Art 0.7 LPM [facility] PF Ratio Art 313 [facility] Temp Art 36.7 Celsius [facility] Blood specimen (specimen) 09/21/2016 10:54 AM EST 09/21/2016 10:54 AM EST Alirio Esparza MD POINT OF CARE TEST ORDERABLES Performing Organization Address City/State/[facility] Co de Phone Number [facility] [place] [address] * Thrombin time (09/21/2016 10:50 AM EST) [...] HEMATOLOGY ORDERABLE S Performing Organization Address City/[facility]/ZIP Co de Phone Number [facility] [place] [address] * Fibrinogen (09/21/2016 10:50 AM EST) Fibrinogen [...] MD HEMATOLOGY ORDERABLE S Performing Organization Address [facility] Co de Phone Number [facility] [place] [address] * APTT (09/21/2016 10:50 AM EST) Partial [...] HEMATOLOGY ORDERABLE S Performing Organization Address City/[facility] Co de Phone Number [facility] [place] [address] * (ABNORMAL) Prothrombin Time (09/21/2016 10:50 AM [...] MD HEMATOLOGY ORDERABLE S [facility] [place] [address] * (ABNORMAL) Hemogram (09/21/2016 10:50 AM EST) [...] [facility] NRBC% auto 0.1 % [facility] NRBC Absolute 0.020(H) 0.000 - 0.000 x10(3)/mc L [facility] Blood specimen (specimen) 09/21/2016 10:50 AM EST 09/21/2016 10:56 AM EST Narrative Resulting Agency Comment Spec In Lab Luis Enrique Quarles MD HEMATOLOGY ORDERABLE S Performing Organization Address [facility] [place] [address] * Prepare Platelets, Apheresis (09/21/2016 10:30 AM EST) Dispensed? Yes [facility] Blood specimen (specimen) 09/21/2016 10:30 AM EST 09/21/2016 10:28 AM EST Alirio Esparza MD BLOOD BANK PRODUCT ORDERABLES Performing Organization Address [facility] [place] [address] * (ABNORMAL) BLOOD GAS 2 ARTERIAL (09/21/2016 10:05 AM EST) pH, Arterial 7.33(L) 7.35 - 7.45 [facility] PCO2, Arterial 54(Critic al) 35 - 45 mmHg [facility] Comment:Noted by sterile instrument technician. PO2, Arterial 218(H) 85 - [...] mmol/L [facility] Comment: Noted by sterile instrument technician. Please note: Patients with WBC [...] [facility] Temp Art 37.0 Celsius [facility] Blood specimen (specimen) 09/21/2016 10:05 AM EST 09/21/2016 10:05 AM EST Alirio Esparza MD POINT OF CARE TEST ORDERABLES [facility] [place] [address] * (ABNORMAL) BLOOD GAS 2 ARTERIAL (09/21/2016 9:44 AM EST) pH, Arterial 7.22(Criti gabrielle) 7.35 - 7.45 [facility] Comment:Noted by sterile instrument technician. PCO2, Arterial 70(Critica l) 35 - 45 mmHg [facility] Comment:Noted by sterile instrument technician. PO2, Arterial 224(H) 85 - [...] OF CARE TEST ORDERABLES [facility] [place] [address] * (ABNORMAL) Hemoglobin (09/21/2016 9:42 AM EST) Hemoglobin 7.2(L) 11.7 - 15.5 gm/dL [facility] Blood specimen (specimen) 09/21/2016 9:42 AM EST 09/21/2016 9:51 AM EST Narrative Resulting Agency Comment Spec In Lab Alirio Esparza MD HEMATOLOGY ORDERABL ES [facility] [place] [address] * Platelet count (09/21/2016 9:42 AM EST) Platelet 159 145 - 357 x10(3)/mc L [facility] Immature Plt % 1.6 0.0 - 7.4 % [facility] Comment: Limitation of the Immature Platelet Fraction (IPF)-May be less reliable when the platelet count is less than 10x185/uL due to statistical imprecision. The IPF value [...] in a decreased state of production. References: [employer] The Clinical Value of the Immature Platelet Fraction (IPF) in Cell Recovery Document Number 10-1143 12/2010 [employer] The Role of the Immature Platelet Fraction (IPF) in the Differential Diagnosis of Thrombocytopenia, Document MKT-10-1209 V012/11/13 P0514 Blood specimen (specimen) 09/21/2016 9:42 AM EST 09/21/2016 9:51 AM EST Narrative Resulting Agency Comment Spec In Lab Alirio Esparza MD HEMATOLOGY ORDERABL ES Performing Organization Address [facility] de Phone Number [facility] [place] [address] * (ABNORMAL) Hematocrit (09/21/2016 9:42 AM EST) [...] MD HEMATOLOGY ORDERABL ES Performing Organization Address [facility] de Phone Number [facility] [place] [address] * Fibrinogen (09/21/2016 9:42 AM EST) Pathologist [facility] Fibrinogen 219 180 - 510 mg/dL [facility] [...] ORDERABL ES Performing Organization Address [facility] Co de Phone Number [facility] [place] [address] * (ABNORMAL) BLOOD GAS 2 ARTERIAL (09/21/2016 [...] [facility] Temp Art 37.0 Celsius [facility] Blood specimen (specimen) 09/21/2016 9:10 AM EST 09/21/2016 9:10 AM EST Alirio Esparza MD POINT OF CARE TEST ORDERABLES [facility] [place] [address] * Surgical Pathology Report (09/21/2016 9:09 AM EST) Final Diagnosis [id number] ?Location: 3T The signing pathologist has (i) [...] AM EST Alirio Esparza MD PATHOLOGY/CYTOLOGY ORDERABLES [facility] [place] [address] * Specimen to Pathology (surgical or derm) (09/21/2016 9:09 AM EST) AP Specimen 09/21/2016 9:09 AM EST 09/21/2016 9:09 AM EST Narrative [facility] - 09/21/2016 9:09 AM EST Specimen requisition ordered. ??Separate Pathology report to follow Alirio Esparza MD PATHOLOGY/CYTOLOGY ORDERABLES [facility] [place] [address] * (ABNORMAL) BLOOD GAS 2 ARTERIAL (09/21/2016 [...] [facility] Co de Phone Number [facility] [place] [address] * (ABNORMAL) BLOOD GAS 2 ARTERIAL (09/21/2016 [...] [facility] FIO2 Art 95 % [facility] Flow Art 1.1 LPM [facility] PF Ratio Art 298 [facility] Temp Art 35.6 Celsius [facility] Blood specimen (specimen) 09/21/2016 8:18 AM EST 09/21/2016 8:18 AM EST Alirio Esparza MD POINT OF CARE TEST ORDERABLES Performing Organization Address [facility] Co de Phone Number [facility] [place] [address] * Prepare RBC (09/21/2016 7:05 AM EST) Dispensed? Yes [facility] Blood specimen (specimen) 09/21/2016 7:05 AM EST 09/21/2016 7:02 AM EST Alirio Esparza MD BLOOD BANK PRODUCT ORDERABLES Performing Organization Address [facility] Co de Phone Number [facility] [place] [address] * POCT Glucose (09/21/2016 6:42 AM EST) Glucose, POC 104 65 - 199 mg/dL [facility] Comment: Supplemental ranges: <140 mg/dL before meals <180 mg/dL all other times of the day Blood specimen (specimen) 09/21/2016 6:42 AM EST 09/21/2016 6:42 AM EST Alirio Esparza MD POINT OF CARE TEST ORDERABLES [facility] [place] [address] documented in this encounter Visit Diagnoses Diagnosis [...] dose on Wed09/21/16 at 1230, Until Discontinued, Tranquillity teeth, Routine Given 09/25/2016 9:40 AM EST [...] if phenyleprine and/or vasopressin ineffective.Call pager # [phone] if initiated., Routine Rate/Dose Change 09/21/2016 2:27 [...] L/min/M2. Maximum volume 2 L. Call warehouse specialist for additional fluid orders: pager #[phone]. Rate/Dose Verify 09/22/2016 10:00 AM EST 10 [...] Marek Barnes, VALDO)1852 (Given - Provider: Chaya Hill, VALDO) 0000 (Not Given - Provider: Alie Whitfield RN - Reason: Patient/family refused)0600 (Not Given - Provider: Breanna Olivas RN - Reason: Patient/family refused)0942 (Given - Provider: Joselyn Caceres RN - Comment: not given at 0600)1600 (Due - Provider: Kendall Martínez [facility]) aspirin chewable tablet 81 mg(Linked [...] dose on Wed09/21/16 at 1230, Until Discontinued, Tranquillity teeth, Routine 0900 (Not Given - Provider: [...] Apple, VALDO)1708 (Given - Provider: Federico Apple, RN) 0826 (Given - Provider: Marek Barnes, VALDO)1622 (Given - Provider: Chaya Hill, VALDO) 0941 [...] 816 (Given - Provider: Elsa Miguel RN) 0900 [...] Federico Apple RN) 08 (Given - Provider: Maerk Barnes, VALDO)2042 (Given - Provider: Alie Whitfield [...] Routine documented in this encounter Care Teams Warp Changer Relationship Specialty Start Date End Date Deborah Quiroga, JUDICIAL CLERK PCP - General Family Medicine 03/24/16 02/04/23 documented as of this encounter
--- OUTSIDE RECORDS SUMMARY | 2024-06-01 14:17 | XMS_ITS | Encounter Summary ---
[place] [address] Care Team Providers Care Director Global Intelligence Name Role Phone Ashley Quirogan Cornelius ANURAG Primary Care Provider [phone] Reason for Visit * Reason Onset Date Comments Medical Care Coordination 07/27/2017 Encounter Details Date Type Department Care Team (Late st Contact Info) Description 07/27/2017 Telephone Hematology [place] [phone] Alexandrea Greenwood RN Medical Care Coordination Social [...] 07/27/2017 12:25 PM EST Message received from sales secretary: Injection/Infusion Referral Call placed to [facility] @ [phone] Spoke w/ [employer] Services to be provided for pt are: CBC/CMP DONE Q6 MONTHS X2 STARTING NOVEMBER 2017 TECH confirmed they would provide services to pt - I CALLED PT, LM. Pt orders faxed to [phone] documented in this encounter Plan of Treatment Upcoming Encounters Date Type Department Care Team (Late st Contact Info) Description 06/05/2024 2:00 PM EST Hospital Encounter Outpatient [facility] [place] [phone] Markel Borjas MD [facility] DR HEMATOLOGY [place] [address] 06/05/2024 2:00 PM EST - 06/05/2024 3:00 PM EST Surgery [facility] [place] [phone] Markel Borjas MD [facility] DR HEMATOLOGY [place] [address] (OSC MSURG) BONE MARROW BIOPSY AND ASPIRATION; DIAGNOSTIC (WRVU 1.44) 06/23/2024 2:00 PM EST Office Visit Hematology [place] [address] Markel Borjas MD [facility] DR HEMATOLOGY [place] [address] 11/02/2024 12:00 PM EDT Appointment Pulmonology at [address] 11/02/2024 1:00 PM EDT Office Visit Rheumatology at [place] [address] Magdalena Peralta MD [facility] R[place]UMAT[place] [address] 03/01/2025 4:15 PM EDT Office Visit Dermatology at [address] [place] [phone] Marek Bonilla MD [address], [place] [address] Scheduled Procedures Name Priority Associated Diagnoses Date/Ti me (OSC MSURG) BONE MARROW BIOPSY AND ASPIRATION; DIAGNOSTIC (WRVU 1.44) Anemia, in pt with longstanding neutropenia 06/05/2024 2:00 PM EST documented as of this encounter Visit Diagnoses Not on filedocumented in this encounter Care Teams Director Global Intelligence Relationship Specialty Start Date End Date Deborah Quiroga, RACKET STRINGER PCP - General Family Medicine 03/24/16 02/04/23 documented as of this encounter
--- OUTSIDE RECORDS SUMMARY | 2024-06-01 14:17 | XMS_ITS | Encounter Summary ---
Author Organization [facility] [place] [address] Care Team Providers Care Dirt Shoveler Name Role Phone Ashley Quirogazac Shields APRN Primary Care Provider [phone] Encounter Details Date Type Department Care Team (Late st Contact Info) Description 02/06/2020 Orders Only Hematology [place] [phone] Markel Borjas MD [facility] [address] [place] [address] Neutropenia, unspecified type Social History Tobacco Use [...] PM EST Hospital Encounter [facility] [place] [address] Markel Borjas MD [facility] [address] [place] [address] 06/05/2024 2:00 PM EST - 06/05/2024 3:00 PM EST Surgery [facility] [place] [address] Markel Borjas MD [facility] DR [place] [address] (OSC MSURG) BONE MARROW BIOPSY AND ASPIRATION; DIAGNOSTIC (WRVU 1.44) 06/23/2024 2:00 PM EST Office Visit Hematology and Oncology at [address] Markel Borjas MD [facility] [place] [address] 11/02/2024 12:00 PM EDT Appointment Pulmonology at [place] [address] 11/02/2024 1:00 PM EDT Office Visit Rheumatology at [place] [address] Magdalena Peralta MD [facility] [place] [address] 03/01/2025 4:15 PM EDT Office Visit Dermatology at [address] [place] [phone] Marek Bonilla MD [address] [place] [address], [place] [address] Scheduled Procedures Name Priority Associated Diagnoses Date/Ti me (OSC MSURG) BONE MARROW BIOPSY AND ASPIRATION; DIAGNOSTIC (WRVU 1.44) Anemia, in pt with longstanding neutropenia 06/05/2024 2:00 PM EST documented as of this encounter Visit Diagnoses Diagnosis Neutropenia, unspecified type documented in this encounter Care Teams Dirt Shoveler Relationship Specialty Start Date End Date Deborah Quiroga APRN PCP - General Family Medicine 03/24/16 02/04/23 documented as of this encounter
--- OUTSIDE RECORDS SUMMARY | 2024-06-01 14:17 | XMS_ITS | Encounter Summary ---
[place] [address] Care Team Providers Care Truck Cleaner Name Role Phone Ashley Quirogan Cornelius ANURAG Primary Care Provider [phone] Reason for Visit * Reason Onset Date Comments Results 12/03/2016 Encounter Details Date Type Department Care Team (Late st Contact Info) Description 12/03/2016 Telephone Hematology [place] [address] Yudith Valentine RN Results Social [...] received call from Maddy at [facility] reporting critical WBC at 1.61, and ANC of 0.5. She will fax the full results to this office for review analyst notified DR Borjas of above results documented in this encounter Plan of Treatment Upcoming Encounters Date Type Department Care Team (Late st Contact Info) Description 06/05/2024 2:00 PM [facility] Hospital Encounter [place]patient [place] [address] Markel Borjas MD [facility] DR [place] [address] 06/05/2024 2:00 PM EST - 06/05/2024 3:00 PM EST Surgery [facility] [address] Markel Borjas MD [facility] DR [place] [address] (OSC MSURG) BONE MARROW BIOPSY AND ASPIRATION; DIAGNOSTIC (WRVU 1.44) 06/23/2024 2:00 PM EST Office Visit Hematology and Oncology at [address] Markel Borjas MD [facility] DR [place] [address] 11/02/2024 12:00 PM EDT Appointment Pulmonology at [place] [address] 11/02/2024 1:00 PM EDT Office Visit Rheumatology at [place] [address] Magdalena Peralta MD [facility] [place] [address] 03/01/2025 4:15 PM EDT Office Visit Dermatology at [place] [address] [place] [address] Marek Bonilla MD [address], [place] [address] Scheduled Procedures Name Priority Associated Diagnoses Date/Ti me (OSC MSURG) BONE MARROW BIOPSY AND ASPIRATION; DIAGNOSTIC (WRVU 1.44) Anemia, in pt with longstanding neutropenia 06/05/2024 2:00 PM EST documented as of this encounter Visit Diagnoses Not on filedocumented in this encounter Care Teams Truck Cleaner Relationship Specialty Start Date End Date Deborah Quiroga APRN PCP - General Family Medicine 03/24/16 02/04/23 documented as of this encounter
--- OUTSIDE RECORDS SUMMARY | 2024-06-01 14:17 | XMS_ITS | Encounter Summary ---
[place] [address] Care Team Providers Care Waste Transportation Technician Name Role Phone Ashley Quirogan Cornelius ANURAG Primary Care Provider [phone] Reason for Visit * Reason Comments Skin Check Encounter Details Date Type Department Care Team (Late st Contact Info) Description 11/11/2020 10:45 AM EDT Office Visit Dermatology at [address] [place] [address] Marek Bonilla MD [address] [facility], [place] A DERMATOLOGY [place], [place] [id number] Rosacea; Acrochordon Social History Tobacco Use Types [...] Discussed the possibility of getting this through [facility] [employer] [facility] [employer] [facility] or from the [facility] pharmacy if necessary. She has not yet [...] PM EST Hospital Encounter [place] [address] Markel Borjas MD [facility] [address] [place] [address] 06/05/2024 2:00 PM EST - 06/05/2024 3:00 PM EST Surgery [place] [address] Markel Borjas MD [facility] [place] [address] (OSC MSURG) BONE MARROW BIOPSY AND ASPIRATION; DIAGNOSTIC (WRVU 1.44) 06/23/2024 2:00 PM EST Office Visit [place] [address] Markel Borjas MD [facility] [address] [place] [address] 11/02/2024 12:00 PM EDT Appointment Pulmonology at [place] [phone] 11/02/2024 1:00 PM EDT Office [place] [address] Magdalena Peralta MD [facility] DR RHEUMATOLOGY DEPT [place], [place] [phone] 03/01/2025 4:15 PM EDT Office Visit Dermatology at [place] [address] [place] [address] Marek Bonilla MD [address] [facility], [place] [address] Scheduled Procedures Name Priority Associated Diagnoses Date/Ti me (OSC MSURG) BONE MARROW BIOPSY AND ASPIRATION; DIAGNOSTIC (WRVU 1.44) Anemia, in pt with longstanding neutropenia 06/05/2024 2:00 PM EST documented as of this encounter Visit Diagnoses Diagnosis Rosacea Acrochordon Unspecified hypertrophic and atrophic condition of skin documented in this encounter Care Teams Waste Transportation Technician Relationship Specialty Start Date End Date Deborah Quiroga APRN PCP - General Family Medicine 03/24/16 02/04/23 documented as of this encounter
--- OUTSIDE RECORDS SUMMARY | 2024-06-01 14:17 | XMS_ITS | Encounter Summary ---
Author Organization [facility] Erika lópez[place]ylvia [place] [address] Care Team Providers Care Donkey Doctor Name Role Phone Deborah Quiroga Sylvia OSBORN Primary Care Provider [phone] Encounter Details Date Type Department Care Team (Late st Contact Info) Description 11/11/2020 Refill Dermatology at [address] [address] Taylor Malone, MEDICAL TECHNICIAN ASSISTANT Social History Tobacco Use Types Packs/Day Years [...] PM EST Hospital Encounter [place] [address] Markel Borjas MD [facility] [place] [address] 06/05/2024 2:00 PM EST - 06/05/2024 3:00 PM EST Surgery [place] [address] Markel Borjas MD [facility] DR [place] [address] (OSC MSURG) BONE MARROW BIOPSY AND ASPIRATION; DIAGNOSTIC (WRVU 1.44) 06/23/2024 2:00 PM EST Office Visit Hematology [place] [address] Markel Borjas MD [facility] DR HEMAT[place] [address] 11/02/2024 12:00 PM EDT Appointment [place] [address] 11/02/2024 1:00 PM EDT Office Visit Rheumatology at [place] [phone] Magdalena Peralta MD [facility] [place] [address] 03/01/2025 4:15 PM EDT Office Visit Dermatology at [place] [address] [facility] [place] [address] Marek Bonilla MD [address], [place] A DERMATOLOGY [place], [place] [address] Scheduled Procedures Name Priority Associated Diagnoses Date/Ti me (OSC MSURG) BONE MARROW BIOPSY AND ASPIRATION; DIAGNOSTIC (WRVU 1.44) Anemia, in pt with longstanding neutropenia 06/05/2024 2:00 PM EST documented as of this encounter Visit Diagnoses Not on filedocumented in this encounter Care Teams Donkey Doctor Relationship Specialty Start Date End Date Deborah Quiroga APRN PCP - General Family Medicine 03/24/16 02/04/23 documented as of this encounter
--- OUTSIDE RECORDS SUMMARY | 2024-06-01 14:17 | XMS_ITS | Encounter Summary ---
Author Organization [facility] [place] [address] Care Team Providers Care Medical Office Supervisor Name Role Phone Deborah Quiroga ANURAG Primary Care Provider [phone] Encounter Details Date Type Department Care Team (Late st Contact Info) Description 02/07/2020 Telephone H[place] [address] Ellen Rios RN Social History [...] 02/07/2020 12:59 PM EDT Message received from traveling secretary: Injection/Infusion Referral Services to be provided for pt are: CBC only at [facility]- Pt will go by 02/27 Orders faxed to [phone]). Spoke with pt. She will call [facility] directly to schedule a time that works for her. documented in this encounter Plan of Treatment Upcoming Encounters Date Type Department Care Team (Late st Contact Info) Description 06/05/2024 2:00 PM [facility] Hospital Encounter Outpatient [place] [address] Markel Borjas MD [facility] DR HEMATOLOGY [place] [address] 06/05/2024 2:00 PM EST - 06/05/2024 3:00 PM EST Surgery Outpatient Surgery [facility] [place] [phone] Markel Borjas MD [facility] DR HEMATOLOGY [place] [address] (OSC MSURG) BONE MARROW BIOPSY AND ASPIRATION; DIAGNOSTIC (WRVU 1.44) 06/23/2024 2:00 PM EST Office Visit Hematology and Oncology at [place] [address] Markel Borjas MD [facility] DR HEMATOLOGY [place] [address] 11/02/2024 12:00 PM EDT Appointment Pulmonology at [place] [address] 11/02/2024 1:00 PM EDT Office Visit Rheumatology at [place] [address] Magdalena Peralta MD [facility] [place] [address] 03/01/2025 4:15 PM EDT Office Visit Dermatology at [address] [place] [address] Marek Bonilla MD [address], [place] A DERMATOLOGY [place], [place] [address] Scheduled Procedures Name Priority Associated Diagnoses Date/Ti me (OSC MSURG) BONE MARROW BIOPSY AND ASPIRATION; DIAGNOSTIC (WRVU 1.44) Anemia, in pt with longstanding neutropenia 06/05/2024 2:00 PM EST documented as of this encounter Visit Diagnoses Not on filedocumented in this encounter Care Teams Medical Office Supervisor Relationship Specialty Start Date End Date Deborah Quiroga, ANURAG PCP - General Family Medicine 03/24/16 02/04/23 documented as of this encounter
--- OUTSIDE RECORDS SUMMARY | 2024-06-01 14:17 | XMS_ITS | Encounter Summary ---
Author Organization [facility] Address [facility] [place] [address] Care Team Providers Care Weight Caller Name Role Phone Deborah Quiroga APRN Primary Care Provider [phone] Encounter Details Date Type Department Care Team (Late st Contact Info) Description 06/18/2017 11:00 AM EST Office Visit Hematology [place] [address] Markel Borjas MD [facility] DR [place] [address] Neutropenia, unspecified type Social History Tobacco Use [...] 06/18/2017 11:00 AM EST Hematology [facility] [...] TOUCH PREP, CLOT SECTION, CORE ??BIOPSY); [OSR# [id number], COLLECTED 06/23/2016, 19 SLIDES]: ?1. ??Normocellular marrow [...] a clonal lymphoproliferative or myeloproliferative disorder (OSR# [id number]) Chromosome analysis on the marrow aspirate revealed [...] working the same job and participating in [employer] patients. Past Medical/Surgical History: 1. Leukopenia -element of neutropenia, as noted above 2. Aortic Stenosis -severe -AVR surgery 3. Hypercholesterolemia 4. Depression 5. Hypertension 6. 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 Extremities: No edema. Labs: Hgb= 13 Rndn=881 ANC= 0.6 Imaging As above - reviewed [...] PM EST Hospital Encounter [place]patient [place] [address] Markel Borjas MD [facility] DR [place] [address] 06/05/2024 2:00 PM EST - 06/05/2024 3:00 PM EST Surgery [place] [address] Markel Borjas MD [facility] DR [place] [address] (OSC MSURG) BONE MARROW BIOPSY AND ASPIRATION; DIAGNOSTIC (WRVU 1.44) 06/23/2024 2:00 PM EST Office Visit Hematology [place] [address] Markel Borjas MD [facility] DR [place] [address] 11/02/2024 12:00 PM EDT Appointment [place] [address] 11/02/2024 1:00 PM EDT Office Visit Rheumatology at [place] [phone] Magdalena Peralta MD [facility] [place] [address] 03/01/2025 4:15 PM EDT Office Visit Dermatology at [place] [address] [facility] [address] [place] [address] Marek Bonilla MD [address] [facility] [facility] [address], [place] [address] Scheduled Procedures Name Priority Associated Diagnoses Date/Ti me (OSC MSURG) BONE MARROW BIOPSY AND ASPIRATION; DIAGNOSTIC (WRVU 1.44) Anemia, in pt with longstanding neutropenia 06/05/2024 2:00 PM EST documented as of this encounter Visit Diagnoses Diagnosis Neutropenia, unspecified type documented in this encounter Care Teams Weight Caller Relationship Specialty Start Date End Date Deborah Quiroga, DOOR TO DOOR FUNDRAISING COLLECTOR PCP - General Family Medicine 03/24/16 02/04/23 documented as of this encounter
--- OUTSIDE RECORDS SUMMARY | 2024-06-01 14:17 | XMS_ITS | Encounter Summary ---
Author Organization [facility] [place] [address] Care Team Providers Care Solar Thermal Installer Name Role Phone Deborah Quiroga APRN Primary Care Provider [phone] Encounter Details Date Type Department Care Team (Late st Contact Info) Description 06/05/2021 Interpretation Only [address] [address] Deborah Quiroga APRN [address] [phone] Social History Tobacco Use Types Packs/Day Years [...] PM EST Hospital Encounter [place] [address] Markel Borjas MD [facility] DR [place] [address] 06/05/2024 2:00 PM EST - 06/05/2024 3:00 PM EST Surgery [place] [address] Markel Borjas MD [facility] [address] [place] [address] (OSC MSURG) BONE MARROW BIOPSY AND ASPIRATION; DIAGNOSTIC (WRVU 1.44) 06/23/2024 2:00 PM EST Office Visit Hematology [place] [address] Markel Borjas MD [facility] DR [place] [address] 11/02/2024 12:00 PM EDT Appointment Pulmonology at [place] [phone] 11/02/2024 1:00 PM EDT Office Visit Rheumatology at [place] [phone] Magdalena Peralta MD [facility] [place] [address] 03/01/2025 4:15 PM EDT Office Visit Dermatology at [address] [place] [address] Marek Bonilla MD [address] [facility], QU[place] A DERMATOLOGY [place], [place] [address] Scheduled Procedures Name Priority Associated Diagnoses Date/Ti [...] O RAD ADMITDTTM RAD PT RAD INFO [id number]^EV ERETT^DEBORAH^E RAD EXAM DESC MADDSC^SCREEN MAMMO BL [...] questions please contact the health managed care liaison that requested your imaging first. ? Electronically signed by: Rocael Villatoro MD, [facility] [place] ([phone]), at 06/05/2021 1:27 PM Narrative 06/05/2021 1:27 [...] have questions please contactthe health managed care liaison that requested your imaging first. Electronically signed by: Rocael Villatoro MD, [facility]([phone]), at 06/05/2021 1:27 PM Deborah Quiroga APRN IMG MAMMO ORDERABLE S documented in this encounter Visit Diagnoses Not on filedocumented in this encounter Care Teams Solar Thermal Installer Relationship Specialty Start Date End Date Deborah Quiroga APRN PCP - General Family Medicine 03/24/16 02/04/23 documented as of this encounter
--- OUTSIDE RECORDS SUMMARY | 2024-06-01 14:17 | XMS_ITS | Encounter Summary ---
Author Organization [facility] [address] Care Team Providers Care Ear Mold Laboratory Technician Name Role Phone Deborah Quiroga ANURAG Primary Care Provider [phone] Encounter Details Date Type Department Care Team (Late st Contact Info) Description 07/21/2017 Orders Only Hematology [place] [address] Alexandrea [place] RN Other neutropenia Social History [...] PM EST Hospital Encounter [place] [address] [facility] [place] [address] 06/05/2024 2:00 PM EST - 06/05/2024 3:00 PM EST Surgery [place] [address] [facility] DR [place] [address] (OSC MSURG) BONE MARROW BIOPSY AND ASPIRATION; DIAGNOSTIC (WRVU 1.44) 06/23/2024 2:00 PM EST Office Visit Hematology and Oncology at [place] [phone] [facility] DR [place] [address] 11/02/2024 12:00 PM EDT Appointment [place] [address] 11/02/2024 1:00 PM EDT Office Visit Rheumatology at [place] [phone] [facility] [place] [address] 03/01/2025 4:15 PM EDT Office Visit Dermatology at [place] [address] [facility] [place] [address] Marek Bonilla MD [address], [place] [address] Scheduled Procedures Name Priority Associated Diagnoses Date/Ti me (OSC MSURG) BONE MARROW BIOPSY AND ASPIRATION; DIAGNOSTIC (WRVU 1.44) Anemia, in pt with longstanding neutropenia 06/05/2024 2:00 PM EST documented as of this encounter Visit Diagnoses Diagnosis Other neutropenia documented in this encounter Care Teams Ear Mold Laboratory Technician Relationship Specialty Start Date End Date Deborah Quiroga APRN PCP - General Family Medicine 03/24/16 02/04/23 documented as of this encounter
--- OUTSIDE RECORDS SUMMARY | 2024-06-01 14:17 | XMS_ITS | Encounter Summary ---
Author Organization [facility] [place] [address] Care Team Providers Care Cripple Worker Name Role Phone Deborah Quiroga ANURAG Primary Care Provider [phone] Encounter Details Date Type Department Care Team (Late st Contact Info) Description 06/18/2017 External Results Hematology [place] [address] Alexandrea [place] RN Neutropenia, unspecified type Social [...] PM EST Hospital Encounter [place] [address] Markel Borjas MD [facility] DR HEMATOLOGY [place] [address] 06/05/2024 2:00 PM EST - 06/05/2024 3:00 PM EST Surgery [place] [address] Markel Borjas MD [facility] DR [place] [address] (OSC MSURG) BONE MARROW BIOPSY AND ASPIRATION; DIAGNOSTIC (WRVU 1.44) 06/23/2024 2:00 PM EST Office Visit Hematology and Oncology at [place] [phone] Markel Borjas MD [facility] DR [place] [address] 11/02/2024 12:00 PM EDT [place]oint[place] [address] 11/02/2024 1:00 PM EDT Office Visit Rheumatology at [place] [phone] Magdalena Peralta MD [facility] [place] [address] 03/01/2025 4:15 PM EDT Office Visit Dermatology at [place] [address] [place] [address] Marek Bonilla MD [address], [place] [address] Scheduled Procedures Name Priority Associated Diagnoses Date/Ti [...] MD CHEMISTRY ORDERABL ES Performing Organization Address City/[facility]/ZIP Co de Phone Number EXTERNAL LAB * (ABNORMAL) CBC (with Diff) (06/11/2017 1:19 PM EST) [facility] White Blood Cell 2.28(EXTER NAL/ABN) 4.4 - 10.8 EXTERNAL LAB Hemoglobin 13.9 12.0 - 15.5 EXTERNAL LAB Hematocrit 43.2 36.0 - 46.0 EXTERNAL LAB Platelet 269 130 - 400 EXTERNAL LAB Neutrophil Absolute (ANC) - Automated 0.63(EXTER NAL/ABN) 1.2 - 6.7 EXTERNAL LAB Blood specimen (specimen) 06/11/2017 1:19 PM EST Markel Borjas MD HEMATOLOGY ORDERAB LES Performing Organization Address City/[facility]/ZIP Co de Phone Number EXTERNAL LAB documented in this encounter Visit Diagnoses Diagnosis Neutropenia, unspecified type documented in this encounter Care Teams Cripple Worker Relationship Specialty Start Date End Date Deborah Quiroga APRN PCP - General Family Medicine 03/24/16 02/04/23 documented as of this encounter
--- OUTSIDE RECORDS SUMMARY | 2024-06-01 14:17 | XMS_ITS | Encounter Summary ---
Author Organization [place] [address] Care Team Providers Care Laboratory Equipment Cleaner Name Role Phone Deborah Quiroga APRN Primary Care Provider [phone] Encounter Details Date Type Department Care Team (Late st Contact Info) Description 03/04/2020 External Results Hematology [place] [address] [employer] [place] Social History Tobacco Use Types [...] PM EST Hospital Encounter [place]patient [place] [address] Markel Borjas MD [facility] DR [place] [address] 06/05/2024 2:00 PM EST - 06/05/2024 3:00 PM EST Surgery [place] [address] Markel Borjas MD [facility] DR [place] [address] (OSC MSURG) BONE MARROW BIOPSY AND ASPIRATION; DIAGNOSTIC (WRVU 1.44) 06/23/2024 2:00 PM EST Office Visit Hematology and Oncology at [place] [phone] Markel Borjas MD [facility] DR [place] [address] 11/02/2024 12:00 PM EDT Appointment [place] [address] 11/02/2024 1:00 PM EDT Office [place] [address] Magdalena Peralta MD [facility] [place] [address] 03/01/2025 4:15 PM EDT Office Visit Dermatology at [place] [address] [place] [address] Marek Bonilla MD [address], [place] A DERMATOLOGY [place], [place] [address] Scheduled Procedures Name Priority Associated Diagnoses Date/Ti [...] Provider CHEMISTRY ORDERAB LES Performing Organization Address City/[facility]/ZIP Co de Phone Number EXTERNAL LAB * [...] filedocumented in this encounter Care Teams Laboratory Equipment Cleaner Relationship Specialty Start Date End Date Deborah Quiroga, VEGETABLE COOK PCP - General Family Medicine 03/24/16 02/04/23 documented as of this encounter
--- OUTSIDE RECORDS SUMMARY | 2024-06-01 14:17 | XMS_ITS | Encounter Summary ---
Author Organization [facility] [place] [address] Care Team Providers Care Hot Dip Galvanizer Name Role Phone Deborah Quiroga APRN Primary Care Provider [phone] Encounter Details Date Type Department Care Team (Late st Contact Info) Description 06/05/2021 Interpretation Only [address] [address] Deborah Quiroga APRN [address] [phone] Social History Tobacco Use Types Packs/Day Years [...] PM EST Hospital Encounter [place] [address] Markel Borjas MD [facility] DR HEMATOLOGY [place] [address] 06/05/2024 2:00 PM EST - 06/05/2024 3:00 PM EST Surgery [place] [address] Markel Borjas MD [facility] DR HEMATOLOGY [place] [address] (OSC MSURG) BONE MARROW BIOPSY AND ASPIRATION; DIAGNOSTIC (WRVU 1.44) 06/23/2024 2:00 PM EST Office Visit Hematology [place] [address] Markel Borjas MD [facility] DR HEMATOLOGY [place] [address] 11/02/2024 12:00 PM EDT Appointment Pulmonology at [place] [phone] 11/02/2024 1:00 PM EDT Office Visit Rheumatology at [place] [phone] Magdalena Peralta MD [facility] [place] [address] 03/01/2025 4:15 PM EDT Office Visit Dermatology at [address] [place] [address] Marek Bonilla MD [address], [place] [address] Scheduled Procedures Name Priority Associated [...] O RAD ADMITDTTM RAD PT RAD INFO [id number]^E VERETT^DEBORAH ^E RAD EXAM DESC XDXAC^DEXA SCAN AXIAL^RIS [facility] Anatomical Region Laterality Modality C-spine, Hip [...] questions please contact the health child care counselor that requested your imaging first. ? Electronically signed by: Rocael Villatoro MD, [facility] ([phone]), at 06/05/2021 12:00 PM Narrative 06/05/2021 12:00 [...] have questions please contactthe health child care counselor that requested your imaging first. Deborah Quiroga APRN IMGerman DEXA ORDERABLES documented in this encounter Visit Diagnoses Not on filedocumented in this encounter Care Teams Hot Dip Galvanizer Relationship Specialty Start Date End Date Deborah Quiroga APRN PCP - General Family Medicine 03/24/16 02/04/23 documented as of this encounter
--- OUTSIDE RECORDS SUMMARY | 2024-06-01 14:17 | XMS_ITS | Encounter Summary ---
Author Organization [facility] [place] [address] Care Team Providers Care Billboard Erector Helper Name Role Phone Deborah Quiroga APRN Primary Care Provider [phone] Encounter Details Date Type Department Care Team (Late st Contact Info) Description 06/05/2021 Interpretation Only [address] [phone] Deborah Quiroga APRN [address] [phone] Social History Tobacco Use Types Packs/Day Years [...] PM EST Hospital Encounter [place] [phone] Markel Borjas MD [facility] DR HEMATOLOGY [place] [address] 06/05/2024 2:00 PM EST - 06/05/2024 3:00 PM EST Surgery [place] [address] Markel Borjas MD [facility] DR HEMATOLOGY [place] [address] (OSC MSURG) BONE MARROW BIOPSY AND ASPIRATION; DIAGNOSTIC (WRVU 1.44) 06/23/2024 2:00 PM EST Office Visit Hematology [place] [phone] Markel Borjas MD [facility] DR HEMATOLOGY [place] [address] 11/02/2024 12:00 PM EDT Appointment [place] [phone] 11/02/2024 1:00 PM EDT Office Visit Rheumatology at [place] [phone] Magdalena Peralta MD [facility] [place] [address] 03/01/2025 4:15 PM EDT Office Visit Dermatology at [address] [place] [phone] Marek Bonilla MD [address] [facility], [place] DERMATOLOGY [place], [place] [phone] Scheduled Procedures Name Priority Associated Diagnoses Date/Ti [...] DH RAD ADMITDTTM RAD PT RAD INFO [id number]^EVERET T^DEBORAH^E RAD EXAM DESC MADDSCTO^BREAST SCREEN TOMOSYNTHESIS [...] who have questions please contact the health day care assistant that requested your imaging first. [...] patients who have questions please contactthe health day care assistant that requested your imaging first. Electronically signed by: Rocael Villatoro MD, [facility]([phone]), at 06/05/2021 1:27 PM Deborah Quiroga APRN IMG MAMMO ORDERABLE S documented in this encounter Visit Diagnoses Not on filedocumented in this encounter Care Teams Billboard Erector Helper Relationship Specialty Start Date End Date Deborah Quiroga APRN PCP - General Family Medicine 03/24/16 02/04/23 documented as of this encounter
--- OUTSIDE RECORDS SUMMARY | 2024-06-01 14:18 | XMS_ITS | Encounter Summary ---
[place] [address] Care Team Providers Care Domestic Maid Name Role Phone Ashley Quirogan Cornelius ANURAG Primary Care Provider [phone] Reason for Visit * Reason Onset Date Comments Medical Care Coordination 09/14/2016 Encounter Details Date Type Department Care Team (Late st Contact Info) Description 09/14/2016 Telephone Hematology [place] [phone] Alexandrea Greenwood RN Medical Care Coordination Social [...] 09/14/2016 9:10 AM EST Message received from statistical secretary: Injection/Infusion Referral Call placed to [facility] Infusion Room Spoke charis Bragg. Services to be provided for pt are: Miles 09/16/16 Mahsa confirmed they would provide services to pt and would contact with appointment time. Pt aware to expect the phone call ??orders faxed to [phone]). documented in this encounter Plan of Treatment Upcoming Encounters Date Type Department Care Team (Late st Contact Info) Description 06/05/2024 2:00 PM EST Hospital Encounter Outpatient Surgery Center [place] [phone] Markel Borjas MD [facility] [place] [address] 06/05/2024 2:00 PM EST - 06/05/2024 3:00 PM EST Surgery Outpatient [facility] [place] [phone] Markel Borjas MD [facility] [place] [address] (OSC MSURG) BONE MARROW BIOPSY AND ASPIRATION; DIAGNOSTIC (WRVU 1.44) 06/23/2024 2:00 PM EST Office Visit Hematology [place] [address] Markel Borjas MD [facility] [place] [address] 11/02/2024 12:00 PM EDT Appointment [place] [address] 11/02/2024 1:00 PM EDT Office Visit Rheumatology at [place] [address] Magdalena Peralta MD [facility] [place] [address] 03/01/2025 4:15 PM EDT Office Visit Dermatology at [place] [address] [address] Marek Bonilla MD [address], [place] [address] Scheduled Procedures Name Priority Associated Diagnoses Date/Ti me (OSC MSURG) BONE MARROW BIOPSY AND ASPIRATION; DIAGNOSTIC (WRVU 1.44) Anemia, in pt with longstanding neutropenia 06/05/2024 2:00 PM EST documented as of this encounter Visit Diagnoses Not on filedocumented in this encounter Care Teams Domestic Maid Relationship Specialty Start Date End Date Deborah Quiroga, HAMMER HEATER PCP - General Family Medicine 03/24/16 02/04/23 documented as of this encounter
--- OUTSIDE RECORDS SUMMARY | 2024-06-01 14:18 | XMS_ITS | Encounter Summary ---
Author Organization [facility] [place] [address] Care Team Providers Care King Maker Name Role Phone Deborah Quiroga ANURAG Primary Care Provider [phone] Encounter Details Date Type Department Care Team (Late st Contact Info) Description 07/31/2016 External Results Hematology [place] [phone] Alexandrea Greenwood RN Neutropenia, unspecified type Social [...] PM EST Hospital Encounter Outpatient [place] [phone] Markel Borjas MD [facility] DR [place] [address] 06/05/2024 2:00 PM EST - 06/05/2024 3:00 PM EST Surgery [place] [phone] Markel Borjas MD [facility] DR [place] [address] (OSC MSURG) BONE MARROW BIOPSY AND ASPIRATION; DIAGNOSTIC (WRVU 1.44) 06/23/2024 2:00 PM EST Office Visit Hematology and Oncology at [place] [phone] Markel Borjas MD [facility] DR [place] [address] 11/02/2024 12:00 PM EDT Appointment [place] [phone] 11/02/2024 1:00 PM EDT Office Visit Rheumatology at [place] [phone] Magdalena Peralta MD [facility] [place] [address] 03/01/2025 4:15 PM EDT Office Visit Dermatology at [address] [facility] [place] [address] Marek Bnoilla MD [address] [facility] [address], [place] [address] Scheduled Procedures Name Priority Associated Diagnoses Date/Ti [...] type documented in this encounter Care Teams King Maker Relationship Specialty Start Date End Date Deborah Quiroga, OPERATIONS LIEUTENANT PCP - General Family Medicine 03/24/16 02/04/23 documented as of this encounter
--- OUTSIDE RECORDS SUMMARY | 2024-06-01 14:18 | XMS_ITS | Encounter Summary ---
Author Organization [facility] Address [facility] [place] [address] Care Team Providers Care Boiler Fitter Name Role Phone Ashley Quirogan Cornelius ANURAG Primary Care Provider [phone] Encounter Details Date Type Department Care Team (Late st Contact Info) Description 08/11/2016 Telephone Hematology [place] [phone] Markel Borjas MD [facility] DR HEMATOLOGY [place] [address] Social History Tobacco Use Types Packs/Day Years [...] PM EST Hospital Encounter Outpatient Surgery Center [place] [phone] Markel Borjas MD [facility] DR [place] [address] 06/05/2024 2:00 PM EST - 06/05/2024 3:00 PM EST Surgery Outpatient [place] [address] Markel Borjas MD [facility] [address] [place] [address] (OSC MSURG) BONE MARROW BIOPSY AND ASPIRATION; DIAGNOSTIC (WRVU 1.44) 06/23/2024 2:00 PM EST Office Visit Hematology [place] [address] Markel Borjas MD [facility] DR HEMATOLOGY [place] [address] 11/02/2024 12:00 PM EDT Appointment [place] [address] 11/02/2024 1:00 PM EDT Office Visit Rheumatology at [place] [phone] Magdalena Peralta MD [facility] [address] 03/01/2025 4:15 PM EDT Office Visit Dermatology at [place] [address] [place] [phone] Marek Bonilla MD [address] [facility] [address], [place] [address] Scheduled Procedures Name Priority Associated Diagnoses Date/Ti me (OSC MSURG) BONE MARROW BIOPSY AND ASPIRATION; DIAGNOSTIC (WRVU 1.44) Anemia, in pt with longstanding neutropenia 06/05/2024 2:00 PM EST documented as of this encounter Visit Diagnoses Not on filedocumented in this encounter Care Teams Boiler Fitter Relationship Specialty Start Date End Date Deborah Quiroga, PAPER STRIPPER PCP - General Family Medicine 03/24/16 02/04/23 documented as of this encounter
--- OUTSIDE RECORDS SUMMARY | 2024-06-01 14:18 | XMS_ITS | Encounter Summary ---
[facility] [place] [address] Care Team Providers Care Road Maker Name Role Phone Deborah Quiroga APRN Primary Care Provider [phone] Encounter Details Date Type Department Care Team (Late st Contact Info) Description 08/18/2016 4:20 PM EST Clinical [place] [phone] Social History Tobacco Use Types Packs/Day Years [...] Hospital Encounter Outpatient [place] [phone] Markel Borjas MD [facility] DR [place] [address] 06/05/2024 2:00 PM EST - 06/05/2024 3:00 PM EST Surgery [place] [address] Markel Borjas MD [facility] DR [place] [address] (OSC MSURG) BONE MARROW BIOPSY AND ASPIRATION; DIAGNOSTIC (WRVU 1.44) 06/23/2024 2:00 PM EST Office Visit [place]ology [place] [phone] Markel Borjas MD [facility] DR [place] [address] 11/02/2024 12:00 PM EDT Appointment Pulmonology at [place] [phone] 11/02/2024 1:00 PM EDT Office Visit Rheumatology at [place] [phone] Magdalena Peralta MD [facility] [place] [address] 03/01/2025 4:15 PM EDT Office Visit Dermatology at [place] [address] [place] [address] Marek Bonilla MD [address], [place] [address] Scheduled Procedures Name Priority Associated Diagnoses Date/Ti me (OSC MSURG) BONE MARROW BIOPSY AND ASPIRATION; DIAGNOSTIC (WRVU 1.44) Anemia, in pt with longstanding neutropenia 06/05/2024 2:00 PM EST documented as of this encounter Visit Diagnoses Not on filedocumented in this encounter Care Teams Road Maker Relationship Specialty Start Date End Date Deborah Quiroga APRN PCP - General Family Medicine 03/24/16 02/04/23 documented as of this encounter
--- OUTSIDE RECORDS SUMMARY | 2024-06-01 14:18 | XMS_ITS | Encounter Summary ---
Author Organization [facility] Address [facility] [place] [address] Care Team Providers Care Golf Cart Mechanic Name Role Phone Junaid Deborah Shields APRN Primary Care Provider [phone] Encounter Details Date Type Department Care Team (Latest Contact Info) Description 06/19/2016 - 06/19/2016 11:59 PM EST Hospital Encounter Radiology Library at [facility] [place] [phone] Nitesh Pina Jr., MD [facility] HEMATOLOGY [place] [address] Pain Discharge Disposition: Home Social History Tobacco [...] PM EST Hospital Encounter Outpatient [place] [phone] Markel Borjas MD [facility] DR HEMATOLOGY [place] [address] 06/05/2024 2:00 PM EST - 06/05/2024 3:00 PM EST Surgery [place] [phone] Markel Borjas MD [facility] DR HEMATOLOGY [place] [address] (OSC MSURG) BONE MARROW BIOPSY AND ASPIRATION; DIAGNOSTIC (WRVU 1.44) 06/23/2024 2:00 PM EST Office Visit Hematology [place] [phone] Markel Borjas MD [facility] HEMATOLOGY [place] [address] 11/02/2024 12:00 PM EDT Appointment [place] [phone] 11/02/2024 1:00 PM EDT Office Visit [place] [phone] Magdalena Peralta MD [facility] [place] [address] 03/01/2025 4:15 PM EDT Office Visit Dermatology at [place] [address] [place] [address] Marek Bonilla MD [address], [place] [address] Scheduled Procedures Name Priority Associated [...] [place]vis (06/19/2016 12:00 AM EST) Narrative [facility] - 06/20/2016 8:53 AM EST This exam is for storage only and is auto-finalizing. Nitesh Pina Jr., MD [employer] ORD ERABLES [place], [place] documented in this encounter Visit Diagnoses Diagnosis Pain Generalized pain documented in this encounter Care Teams Golf Cart Mechanic Relationship Specialty Start Date End Date Deborah Quiroga APRN PCP - General Family Medicine 03/24/16 02/04/23 documented as of this encounter
--- OUTSIDE RECORDS SUMMARY | 2024-06-01 14:18 | XMS_ITS | Encounter Summary ---
[place] [address] Care Team Providers Care Churn Drill Operator Name Role Phone Ashley Quirogazac Shields APRN Primary Care Provider [phone] Reason for Visit * Auth/Cert Specialty Diagnoses / Procedures Referred By Crispin t Referred To Contact Diagnoses Aortic stenosis Procedures PRO REPLACE AORT VALV, PROSTH VALV @REPLACE AORTIC VALVE, OPEN, W\CPB, W\PROSTHETIC VALVE (WRVU 41.32) Referral ID Status Reason Start Date Expiration Date Visits Re quested Visits Authorized [id number] 1 1 Encounter Details Date Type Department Care Team (Late st Contact Info) Description 09/21/2016 7:30 AM EST - 09/21/2016 12:04 PM EST Surgery [place] [address] Alirio Esparza MD @REPLACE AORTIC VALVE, OPEN, [...] Patient Age: 61 y.o. Birthdate: 1955 Language: Pashto Race: White Ethnicity: Not nor Admit Date: 09/21/2016 Discharge Date: 09/25/2016 Attending Physician: Alirio Esparza MD Follow-up Recommendations for Providers: Please continue routine management of cardiovascular risk factors including blood pressure, lipids,glucose, etc. Please note any changes to medications. Patient to follow-up with PCP, Deborah Quiroga APRN, in 1-2 weeks. Patient to follow-up with Surgeon'S Assistant, Dr. Antelmo Burrell, in two weeks. Patient to follow-up with Cardiac Surgery, Dr. Alirio Esparza, to be scheduled for before 10/19/2016, with CXR, EKG, and Echo. Inpatient Provider Contact Information: [facility] Section of Cardiac Surgery [facility] [place] [address] FAX [phone] Discharge Diagnoses (Hospital Problems) Primary Diagnoses: Secondary [...] 41.32) performed by Alirio Esparza MD at [facility] ??? Pro aortoplas for supravalv sten N/A 09/21/2016 @AORTOPLASTY FOR SUPRAVALVULAR STENOSIS (WRVU 29.33) performed by Alirio Esparza MD at [facility] Prior To Admission Medications [...] Hospital Course: Purnima Thacker was admitted to [facility] on 09/21/2016 via the Same [...] Alirio Esparza and/or the Cardiac Surgery Physician Hollow Ware Maker Team may be reached at . Antibiotic [...] Dr. Alirio Jones. You may use a [place] Track or treadmill but avoid any pulling [...] AM Markel Borjas MD [facility] Hem Onc [phone] Future Orders Complete By Expires Echocardiogram Transthoracic([place]) [VNP739 Custom] 10/18/2016 (Approximate) 09/18/2017 Process Instructions: If the Echocardiogram is to be PERFORMED in a DH location other than [place]--STOP and order NQL682, Echocardiogram South/External. Scheduling Instructions: Questions: Is a Bubble Study requested?: No Does the patient have Congenital Heart Disease?: No Does patient require sedation?: None GA rationale: Should this service be billed to the research sponsor?: EKG 12 Lead [EKG1 Custom] 10/18/2016 (Approximate) 09/25/2017 Process Instructions: Scheduling Instructions: Questions: Which DH location will this be performed?: [place] Is a rhythm strip needed?: No If EKG Reason is Pre-op Evaluation, indicate diagnosis for surgery.: Should this service be billed to the research sponsor?: XR Chest PA & Lateral (Generic) [[id number] Custom] 10/18/2016 (Approximate) 09/25/2017 Process Instructions: Scheduling Instructions: Questions: Where will study be performed?: [facility]- Radiology Portable exam?: No Reason for exam and clinical history: s/p AVReplacement, patch annuloplasty 1 month f/u Other pertinent information: Stat read required?: Date of injury if applicable: Requested Time: Referral to Cardiac Rehab [IZG637 Custom] As directed Process Instructions: If no progress note charted, please enter Clinical details in comments. Scheduling Instructions: Questions: My question or request is: s/p AVR. Cardiac rehab at [facility] Referral to Home Health - at DISCHARGE [RLO1621 CPT(R)] As directed Process Instructions: Scheduling Instructions: Comments: DOCUMENTATION FOR VNA SERVICES (INCLUDING THOSE PATIENTS WITH MEDICARE COVERAGE REQUIRING HOME VNA SERVICES AND/OR HOSPICE SERVICES) PATIENT'S LOCATION: Purnimakary Gallego[address] [address] (home) No relevant phone numbers on file. Events Director's Name: self In discussion with the attending physician, it is certified that this patient is under their care and that they, or a Nurse Practitioner, or Physician Hollow Ware Maker who is working directly with them, hada [...] for services as follows: HOME HEALTH AGENCY: [facility] PHONE: [phone] FAX: [phone] RN orders: Cardiopulmonary assessment, incisional assessment, assess [...] issues please call the Cardiac SurgeryOffice at [phone] FOR MEDICARE ONLY: In discussion with the [...] AFTER 09/30/16 Signed: Crispin Aranda PA-C 09/25/2016 [facility] Section of Cardiac Surgery [facility] [place] [address] FAX [phone] Date: 09/25/2016 CC: ANURAG Alford Caryn E, APRN [address] [place] [address] documented in this encounter Discharge Instructions * [...] Alirio Esparza and/or the Cardiac Surgery Physician Hollow Ware Maker Team may be reached at . Antibiotic [...] Dr. Alirio Jones. You may use a [place] Track or treadmill but avoid any pulling [...] pain -05/11.). 30 tablet 5 09/25/2016 furosemide (LASIX) 20 [...] PM EST Cardiac Surgery Progress Note: ID: [id number] S/p AVR, patch aortoplasty POD#2. PMH of [...] Gas) No results found for: PHART, PO2ART, OAP9TUA Assessment/Plan: TPW out this am. (+) BM. [...] Signed: Crispin Aranda PA-C 09/24/2016 Team pager: [phone]; [phone] after 5pm [facility] Section of Cardiac Surgery * Leonor Henson S, BOOKKEEPING TEACHER - 09/23/2016 10:48 AM EST Cardiac Surgery Progress Note: ID: [id number] s/p AVR, patch aortoplasty POD#2. PMH of [...] Gas) No results found for: PHART, PO2ART, RRX4QDD Assessment/Plan: s/p AVR, patch aortoplasty POD#2. PMH of Neutropenia, HLD, HTN, Depression, obesity, . Transferred from [facility] yesterday and doing well. Pathway. Will [...] Surgeon on rounds. Signed: Leonor Henson APRN [facility] Section of Cardiac Surgery Date: 09/23/2016 * Nico Palacios PA - 09/22/2016 9:56 AM EST Cardiac Surgery Progress Note: ID: [id number] s/p AVR, patch aortoplasty POD#1. PMH of [...] NT, ND, soft. Ext: Moves all extremities. Mcgrew, well perfused. Incisions: C/D/I Tubes/Lines/Drains: PIV, leanna, [...] Attending Surgeon on rounds. Signed: EKATERINA KIM [facility] Section of Cardiac Surgery Date: [...] Outcome (s) achieved Date Met: 09/25/16 09/25/16 6616 Coping/Psychosocial Plan Of Care Reviewed With patient [...] services Lalitha Cohen [facility] Pager: [phone] Inpatient Physical Therapy Patient status, treatment interventions, and goals discussed with student. I am in agreement with all details and associated flowsheet rows as documented and was present for all aspects of the patient treatment session. Nery Jaramillo, CANDY Pager [phone] Problem: Acute Rehab Services Goal & Intervention Plan Goal: Bed Mobility Goal Stand Alone Therapy Goal Outcome: Ongoing (Interventions Implemented as Appropriate) 09/22/16 1611 09/25/16 0947 Bed Mobility Goal Bed Mobility Goal, Time to Achieve 4 days -- Bed Mobility Goal, Activity Type scoot/bridge;supine to sit/sit to supine -- Bed Mobility Goal, [place] Level independent -- Bed Mobility Goal, Additional [...] Achieve 4 days -- Gait Training Goal, [place] Level independent -- Gait Training Goal, Distance [...] health [facility]ith[facility] Pager: [phone] Inpatient Physical Therapy Patient status, treatment interventions, and goals discussed with student. I am in agreement with all details and associated flowsheet rows as documented and was present for all aspects of the patient treatment session. Nrey Jaramillo, STOCK PITCHER Pager [phone] Problem: Acute Rehab Services Goal & Intervention Plan Goal: Bed Mobility Goal Stand Alone Therapy Goal Outcome: Ongoing (Interventions Implemented as Appropriate) 09/22/16161009/23/161411 Bed Mobility Goal Bed Mobility Goal, Time to Achieve 4 days -- Bed Mobility Goal, Activity Type scoot/bridge;supine to sit/sit to supine -- Bed Mobility Goal, Greenbelt Level independent -- Bed Mobility Goal, Additional [...] Achieve 4 days -- Gait Training Goal, [place] Level independent -- Gait Training Goal, Distance [...] days -- Transfer Training Goal, Activity Type gtc-ay-dglaw/fdupy-hj-fkl;uim-xw-uyrbz/vxkgt-pf-suw -- Transfer Train Goal, Greenbelt Level independent -- Transfer Training Goal, Additional Goal abides sternal precautions -- Transfer Training Goal, Outcome -- goal met * Consult Note - Jana Crenshaw RN - 09/23/2016 9:41 AM EST [facility] CARDIAC REHABILITATION Purnima Thacker was seen today [...] Another Service: (cardiac rehab) NICOLE HERNANDEZ, PT Pager:[phone] Inpatient Physical Therapy Problem: Acute Rehab Services Goal & Intervention Plan Goal: Bed Mobility Goal Stand Alone Therapy Goal Outcome: Ongoing (Interventions Implemented as Appropriate) 09/22/161610 Bed Mobility Goal Bed Mobility Goal, Time to Achieve 4 days Bed Mobility Goal, Activity Type scoot/bridge;supine to sit/sit to supine Bed Mobility Goal, Greenbelt Level independent Bed Mobility Goal, Additional Goal able to abide sternal precautions during transfers Goal: Gait Training Goal Stand Alone Therapy Goal Outcome: Ongoing (Interventions Implemented as Appropriate) 09/22/161610 Gait Training Goal Gait Training Goal, Date Established 09/22/16 Gait Training Goal, Time to Achieve 4 days Gait Training Goal, Greenbelt Level independent Gait Training Goal, Distance to Achieve ascend and descends 2 steps independently Goal: Goal Transfer Training Stand Alone Therapy Goal Outcome: Ongoing (Interventions Implemented as Appropriate) 09/22/161610 Goal Transfer Training Transfer Training Goal, Time to Achieve 4 days Transfer Training Goal, Activity Type gdh-hu-wpsxm/hrbca-zq-ctl;byj-jl-udjbd/qsfyw-jr-uxf Transfer Train Goal, Greenbelt Level independent Transfer Training Goal, Additional Goal [...] of completing AD's at home, chooses her gpbiuc-jl-csh, Martha Thacker (home) for her DPOAH, 2nd choice in friend, Nitesh Rad, [place], [place] Current Coping/Education/Information Needs: patient sitting up [...] close by, Rashad & Raymond, and her mexdoo-wu-las Martha Thacker who she has chosen to be her DPOAH. Also has a friend Nitesh Leroy who lives in [place], [place], also her DPOAH choice. Behavioral Health History: none on file in e[facility] Substance Use/Abuse: none on file in [facility] Other Pertinent/Service Specific Information: none Health/Prescription Coverage: Primary Insurance: [employer] Secondary Insurance: none Prescription Coverage: yes, per patient no issues Preferred Pharmacy: ?? Other: none Primary Care Provider: Deborah Quiroga, BOOKKEEPING TEACHER [phone] Patient/Caregiver Goals of Treatment: per medical team recommendations at discharge for CT surgery Potential Needs for Transition of Care: Rehab/SNF: TBD Home Health: TBD DME: no Dialysis: no Community Resources: non3 Transportation: ride home with a friend Other: none Anticipated Barriers to Discharge/Special Considerations: none anticipated at this time Plan: patient will need VNA services at discharge. The patient/apprenticeship training representative has been provided a list of Home Health Agencies/DME vendors which servetheir preferred geographic area. A letter describing our affiliations was reviewed with them and they were educated about their right to choose where referrals are placed. Patient requests referral to: [facility] [place] [facility]. PHONE: [phone] FAX: [phone] Expected date of discharge: Fri/Sat? CM called VNA to confirm referral, talked with VALDO Bunn/intake who stated she was familiar w/patient & would monitor her progress through curaspan. Referral routed to the Senior Electrical Controls Engineer for matching with agency/vendor and to provide any required information. A member of the Care Management team will continue to monitor progress, follow for continuity of care and assist with transition of care planning. Amanda Moreno RN Pager: [phone] * Op Note - Alirio Esparza MD - 09/21/2016 12:53 PM EST 09/23/2016 Purnima Thacker 1955 [id number] Preoperative Diagnosis: Symptomatic aortic stenosis Postoperative Diagnosis: Symptomatic aortic stenosis Procedure: Aortic valve replacement: Bovine Pericardial 25 mm Surgeon: Alirio Esparza M.D. Hollow Ware Maker: Philip BALL Anesthesia: General endotracheal anesthesia Drains: [...] applied. The patient was transported to the [facility] on levo. All counts were correct. [...] Operative Note Patient Name: Purnima Thacker : [id number] MR#: [id number] Case Date: 09/21/2016 Surgeon: Surgeon(s) and Role: * Alirio Esparza MD - Primary * Nico Palacios PA - Physician Hollow Ware Maker Preoperative diagnosis: Postoperative diagnosis: Procedure(s) (LRB): @REPLACE [...] PM EST Hospital Encounter Outpatient [place] [phone] Markel Borjas MD [facility] DR [place] [address] 06/05/2024 2:00 PM EST - 06/05/2024 3:00 PM EST Surgery Outpatient Surgery Center [place] [phone] Markel Borjas MD [facility] DR HEMATOLOGY [place] [address] (OSC MSURG) BONE MARROW BIOPSY AND ASPIRATION; DIAGNOSTIC (WRVU 1.44) 06/23/2024 2:00 PM EST Office Visit Hematology [place] [address] Markel Borjas MD [facility] DR HEMATOLOGY [place] [address] 11/02/2024 12:00 PM EDT Appointment [place] [address] 11/02/2024 1:00 PM EDT Office Visit Rheumatology at [place] [phone] Magdalena Peralta MD [facility] [place] [address] 03/01/2025 4:15 PM EDT Office Visit Dermatology at [address] [phone] Marek Bonilla MD [address], [place] [address] Scheduled Orders Name Type Priority Associated Diagnoses [...] IMPLANTABLE DEVICES SCAN 09/26/2016 12:00 AM EST BLENDER SNUFF SCAN 09/26/2016 12:00 AM EST POTASSIUM Routine [...] Routine 09/22/2016 4:00 AM EST CARDIAC ENZYMES ([facility]/CGP) Routine 09/22/2016 4:00 AM EST CREATININE Routine [...] SCAN EXT O RDR/RSLT * SCAN DOC: BLENDER SNUFF (09/26/2016 12:00 AM EST) Anatomical Region Laterality [...] ORDERABLE S Performing Organization Address [facility]/ZIP Co de Phone Number [facility] [place] [address] * (ABNORMAL) Differential, Automated (09/24/2016 9:56 AM EST) Neutrophil % 76.8 % [facility] Neutrophil Absolute 7.79(H) 1.70 - 6.10 x10(3)/mc L [facility] Lymph % 11.1 % [facility] Lymphocytes Abs 1.1 0.9 - 3.2 x10(3)/mc L [facility] Monocyte % 8.5 % [facility] Monocyte Abs 0.9 0.3 - 0.9 x10(3)/mc L [facility] Eos % 0.5 % [facility] Eosinophils Abs 0.0 0.0 - 0.4 x10(3)/ L [facility] Basophil % 0.2 % [facility] [...] Absolute 0.29(H) 0.00 - 0.04 x10(3)/mc L [facility] Blood specimen (specimen) 09/24/2016 9:56 AM EST 09/24/2016 10:04 AM EST Narrative Resulting Agency Comment Spec In Lab Alirio Esparza MD HEMATOLOGY ORDERABL ES Performing Organization Address [facility]/ZIP Co de Phone Number [facility] [place] [address] * (ABNORMAL) Hemogram (09/24/2016 9:56 AM EST) [...] HOSPITAL LABORATORY Platelet 141(L) 145 - 357 x10(3)/[facility] LABORATORY RDW Standard Deviation 45.0 37.0 - 46.0 [facility] LABORATORY RDW coefficient of variation 12.6 11.5 - 14.1 % [facility] Mean Platelet Volume 9.4 7.6 - 12.9 [facility] LABORATORY NRBC% auto 1.1 % [facility] NRBC Absolute 0.110(H) 0.000 - 0.000 x10(3)/[facility] LABORATORY Blood specimen (specimen) 09/24/2016 9:56 AM EST 09/24/2016 10:04 AM EST Narrative Resulting Agency Comment Spec In Lab Alirio Esparza MD HEMATOLOGY ORDERABL ES [facility] [place] [address] * (ABNORMAL) Basic Metabolic Panel (non-fasting) (09/24/2016 [...] intervals supplied above were not validated at [facility]. Results from pediatric patients should [...] the following links into your internet browser. [email or web address] Blood specimen (specimen) 09/24/2016 9:56 AM EST 09/24/2016 10:04 AM EST Narrative Resulting Agency Comment Spec In Lab Alirio Esparza MD CHEMISTRY ORDERABLE S [facility] [place] [address] * XR Chest PA & Lateral (Generic) [...] CHEMISTRY ORDERABLE S [facility] [place] [address] * POCT Glucose (09/22/2016 8:17 AM EST) Glucose, POC 131 65 - 199 mg/dL [facility] Comment: Supplemental ranges: <140 mg/dL before meals <180 mg/dL all other times of the day Blood specimen (specimen) 09/22/2016 8:17 AM EST 09/22/2016 8:17 AM EST Alirio Esparza MD POINT OF CARE TEST ORDERABLES Performing Organization Address City/[facility]/ZIP Co de Phone Number [facility] [place] [address] * POCT Glucose (09/22/2016 4:01 AM EST) Glucose, POC 135 65 - 199 mg/dL [facility] Comment: Supplemental ranges: <140 mg/dL before meals <180 mg/dL all other times of the day Blood specimen (specimen) 09/22/2016 4:01 AM EST 09/22/2016 4:01 AM EST Alirio Esparza MD POINT OF CARE TEST ORDERABLES Performing Organization Address [facility]/ZIP Co de Phone Number [facility] [place] [address] * Scan, Peripheral Blood (09/22/2016 4:00 AM EST) [facility] Plat estimate Normal [facility] RBC Morphology Abnormal [facility] Macrocyte 1-5 /HPF [facility] Plat, Giant Less than 1 /HPF [facility] Blood specimen (specimen) 09/22/2016 4:00 AM EST 09/22/2016 4:34 AM EST Narrative Resulting Agency Comment Spec In Lab Alirio Esparza MD HEMATOLOGY ORDERABL ES Performing Organization Address City/[facility]/ZIP Co de Phone Number [facility] [place] [address] * Electrolytes panel (09/22/2016 4:00 AM EST) Pathologist [facility] Sodium 145 135 - 145 mmol/L [facility] [...] CHEMISTRY ORDERABLE S [facility] [place] [phone] * (ABNORMAL) Differential, Automated (09/22/2016 4:00 AM EST) [facility] Neutrophil % 70.9 % [facility] Neutrophil Absolute 5.33 1.70 - 6.10 x10(3)/mc L [facility] Lymph % 9.1 % [facility] Lymphocytes Abs 0.7(L) 0.9 - 3.2 x10(3)/mc L [facility] Monocyte % 18.0 % [facility] Monocyte Abs 1.4(H) 0.3 - 0.9 x10(3)/mc L [facility] Eos % 0.0 % [facility] Eosinophils Abs 0.0 0.0 - 0.4 x10(3)/mc L [facility] Basophil % 0.1 % [facility] [...] 0.14(H) 0.00 - 0.04 x10(3)/ L [facility] Blood specimen (specimen) 09/22/2016 4:00 AM EST 09/22/2016 4:34 AM EST Narrative Resulting Agency Comment Spec In Lab Alirio Esparza MD HEMATOLOGY ORDERABL ES Performing Organization Address City/State/[facility] Co de Phone Number [facility] [place] [address] * (ABNORMAL) Hemogram (09/22/2016 4:00 AM EST) White Blood Cell 7.5 4.0 - 9.5 x10(3)/ L [facility] Red Blood Cell 2.93(L) 4.00 - 5.21 x10(6)/mc L [facility] Hemoglobin 9.2(L) 11.7 - 15.5 [...] Platelet 161 145 - 357 x10(3)/ L [facility] RDW Standard Deviation 44.0 37.0 - 46.0 fL [facility] RDW coefficient of variation 12.6 11.5 - 14.1 % [facility] Mean Platelet Volume 9.3 7.6 - 12.9 fL [facility] NRBC% auto 0.3 % [facility] NRBC Absolute 0.020(H) 0.000 - 0.000 x10(3)/mc L [facility] Blood specimen (specimen) 09/22/2016 4:00 AM EST 09/22/2016 4:34 AM EST Narrative Resulting Agency Comment Spec In Lab Alirio Esparza MD HEMATOLOGY ORDERABL ES Performing Organization Address City/State/[facility] Co de Phone Number [facility] [place] [address] * (ABNORMAL) Cardiac Enzymes (09/22/2016 4:00 AM [...] [employer] 2000; 36: [phone]] Creatine Kinase 338(H) 0 - 160 unit/L [facility] Blood specimen (specimen) 09/22/2016 4:00 AM EST 09/22/2016 4:34 AM EST Narrative Resulting Agency Comment Spec In Lab Alirio Esparza MD CHEMISTRY ORDERABLE S Performing Organization Address City/[facility] Co de Phone Number [facility] [place] [address] * (ABNORMAL) Glucose, fasting (09/22/2016 4:00 AM [...] ORDERABLE S Performing Organization Address [facility] Co de Phone Number [facility] [place] [address] * (ABNORMAL) Creatinine (09/22/2016 4:00 AM EST) Creatinine 0.69(L) 0.70 - 1.20 mg/dL [facility] Comment: Please note that the pediatric reference intervals supplied above were not validated at [facility]. Results from pediatric patients should [...] the following links into your internet browser. [email or web address] Blood specimen (specimen) 09/22/2016 4:00 AM EST 09/22/2016 4:34 AM EST Narrative Resulting Agency Comment Spec In Lab Alirio Esparza MD CHEMISTRY ORDERABLE S Performing Organization Address [facility] Co de Phone Number [facility] [place] [address] * BUN (09/22/2016 4:00 AM EST) Blood Urea Nitrogen 10 8 - 18 mg/dL [facility] Blood specimen (specimen) 09/22/2016 4:00 AM EST 09/22/2016 4:34 AM EST Narrative Resulting Agency Comment Spec In Lab Alirio Esparza MD CHEMISTRY ORDERABLE S Performing Organization Address [facility] Co de Phone Number [facility] [place] [address] * POCT Glucose (09/21/2016 9:59 PM EST) Glucose, POC 146 65 - 199 mg/dL [facility] Comment: Supplemental ranges: <140 mg/dL before meals <180 mg/dL all other times of the day Blood specimen (specimen) 09/21/2016 9:59 PM EST 09/21/2016 9:59 PM EST Alirio Esparza MD POINT OF CARE TEST ORDERABLES Performing Organization Address [facility] Co de Phone Number [facility] [place] [address] * POCT Glucose (09/21/2016 7:26 PM EST) Glucose, POC 152 65 - 199 mg/dL [facility] Comment: Supplemental ranges: <140 mg/dL before meals <180 mg/dL all other times of the day Blood specimen (specimen) 09/21/2016 7:26 PM EST 09/21/2016 7:26 PM EST Alirio Esparza MD POINT OF CARE TEST ORDERABLES [facility] [place] [address] * POCT Glucose (09/21/2016 6:00 PM EST) Glucose, POC 146 65 - 199 mg/dL [facility] Comment: Supplemental ranges: <140 mg/dL before meals <180 mg/dL all other times of the day Blood specimen (specimen) 09/21/2016 6:00 PM EST 09/21/2016 6:00 PM EST Alirio Esparza MD POINT OF CARE TEST ORDERABLES Performing Organization Address City/[facility] Co de Phone Number [facility] [place] [address] * (ABNORMAL) BLOOD GAS 2 ARTERIAL (09/21/2016 [...] [facility] FIO2 Art 40 % [facility] PF Ratio Art 270 [facility] Blood specimen (specimen) 09/21/2016 4:42 PM EST 09/21/2016 4:42 PM EST Alirio Esparza MD POINT OF CARE TEST ORDERABLES Performing Organization Address City/[facility] Phone Number [facility] [place] [address] * POCT Glucose (09/21/2016 4:07 PM EST) [...] [place] Co de Phone Number [facility] [place] [address] * (ABNORMAL) Hemoglobin (09/21/2016 4:05 PM EST) Hemoglobin 9.9(L) 11.7 - 15.5 gm/dL [facility] Blood specimen (specimen) 09/21/2016 4:05 PM EST 09/21/2016 4:20 PM EST Narrative Resulting Agency Comment Spec In Lab Alirio Esparza MD HEMATOLOGY ORDERABL ES Performing Organization Address [facility] Co de Phone Number [facility] [place] [address] * Potassium (09/21/2016 4:05 PM EST) [facility] Potassium 4.6 3.5 - 5.0 mmol/L [facility] [...] ORDERABLE S Performing Organization Address [facility] Co de Phone Number [facility] [place] [address] * POCT Glucose (09/21/2016 2:52 PM EST) Glucose, POC 117 65 - 199 mg/dL [facility] Comment: Supplemental ranges: <140 mg/dL before meals <180 mg/dL all other times of the day Blood specimen (specimen) 09/21/2016 2:52 PM EST 09/21/2016 2:52 PM EST Alirio Esparza MD POINT OF CARE TEST ORDERABLES Performing Organization Address [facility] Co de Phone Number [facility] [place] [address] * POCT Glucose (09/21/2016 1:51 PM EST) Glucose, POC 108 65 - 199 mg/dL [facility] Comment: Supplemental ranges: <140 mg/dL before meals <180 mg/dL all other times of the day Blood specimen (specimen) 09/21/2016 1:51 PM EST 09/21/2016 1:51 PM EST Alirio Esparza MD POINT OF CARE TEST ORDERABLES Performing Organization Address [facility] Co de Phone Number [facility] [place] [address] * POCT Glucose (09/21/2016 12:54 PM EST) Pathologist [facility] Glucose, POC 128 65 - 199 mg/dL [facility] Comment: Supplemental ranges: <140 mg/dL before meals <180 mg/dL all other times of the day Blood specimen (specimen) 09/21/2016 12:54 PM EST 09/21/2016 12:54 PM EST Alirio Esparza MD POINT OF CARE TEST ORDERABLES Performing Organization Address [facility] Co de Phone Number [facility] [place] [address] * EKG 12 Lead (09/21/2016 12:26 PM EST) Pathologist [facility] Ventricular rate 87 BPM MUSE SYSTEM Atrial Rate 87 BPM MUSE SYSTEM P-R Interval 256 ms MUSE SYSTEM QRS Duration 90 ms MUSE SYSTEM Q-T Interval 406 ms MUSE SYSTEM QTC Calculated (Bezet) 488 ms MUSE SYSTEM Calculated P [place] 24 degrees MUSE SYSTEM Calculated R [place] 21 degrees MUSE SYSTEM Calculated T [place] -5 degrees MUSE SYSTEM INTERPRETATION Sinus rhythm with 1st degree A-V block Nonspecific T wave abnormality Prolonged QT Abnormal ECG When compared with ECG of 19-MAY-2016 11:43, LA interval has increased T wave inversion now evident in inferior and midanterior leads Confirmed by MD ESTES EDWARD ([id number]) on 09/21/2016 1:40:59 PM MUSE SYSTEM 09/21/2016 12:2 6 PM EST 09/21/2016 1:40 PM EST Narrative Authorizing Provider Result Slade Esparza MD ECG ORDERABLES MUSE SYSTEM * [...] course of the esophagus and below the [id number]. There is a right IJ PA catheter [...] the course of theesophagus and below the [id number]. There is a right IJ PA catheter projectingover the right pulmonary artery. 2 mediastinal drainage tubes are in place. Intactmedian sternotomy wires. There has been aortic valve repair. There is a small left pleural effusion. No focal pulmonary opacity. IMPRESSION Status post aortic valve repair with lines and tubes as above. Small left pleural effusion. Authorizing Provider Result Slade Esparza MD IMG DX ORDERABLES * (ABNORMAL) [...] [facility] FIO2 Art 100 % [facility] PF Ratio Art 356 [facility] Blood specimen (specimen) 09/21/2016 12:20 PM EST 09/21/2016 12:20 PM EST Alirio Esparza MD POINT OF CARE TEST ORDERABLES [facility] [place] [address] * (ABNORMAL) BLOOD GAS 2 ARTERIAL (09/21/2016 [...] [facility] FIO2 Art 95 % [facility] Flow Art 0.7 LPM [facility] PF Ratio Art 313 [facility] Temp Art 36.7 Celsius [facility] Blood specimen (specimen) 09/21/2016 10:54 AM EST 09/21/2016 10:54 AM EST Alirio Esparza MD POINT OF CARE TEST ORDERABLES Performing Organization Address [facility] Co de Phone Number [facility] [place] [address] * Thrombin time (09/21/2016 10:50 AM EST) [...] MD HEMATOLOGY ORDERABLE S Performing Organization Address [facility] Co de Phone Number [facility] [place] [address] * Fibrinogen (09/21/2016 10:50 AM EST) Fibrinogen [...] MD HEMATOLOGY ORDERABLE S Performing Organization Address [facility] Co de Phone Number [facility] [place] [address] * APTT (09/21/2016 10:50 AM EST) Partial Thromboplastin Time 32 25 - 35 sec [facility] Comment: The recommended therapeutic range for full dose, unfractionated heparin at [facility] is 80 ? 114 seconds. The use of the anti-Xa (heparin) level rather than the PTT is recommended for monitoring anticoagulation intensity in critically ill patients receiving unfractionated heparin by continuous IV infusion. Blood specimen (specimen) 09/21/2016 10:50 AM EST 09/21/2016 10:56 AM EST Narrative Resulting Agency Comment Spec In Lab Luis Enrique Quarles MD HEMATOLOGY ORDERABLE S Performing Organization Address [facility] de Phone Number [facility] [place] [address] * (ABNORMAL) Prothrombin Time (09/21/2016 10:50 AM [...] Address City/[facility]/ZIP Co de Phone Number [facility] [place] [address] * (ABNORMAL) Hemogram (09/21/2016 10:50 AM EST) [...] RDW Standard Deviation 42.6 37.0 - 46.0 [facility] RDW coefficient of variation 12.1 11.5 - 14.1 % [facility] Mean Platelet Volume 9.2 7.6 - 12.9 [facility] NRBC% auto 0.1 % [facility] NRBC Absolute 0.020(H) 0.000 - 0.000 x10(3)/ L [facility] Blood specimen (specimen) 09/21/2016 10:50 AM EST 09/21/2016 10:56 AM EST Narrative Resulting Agency Comment Spec In Lab Luis Enrique Quarles MD [place] [address] * Prepare Platelets, Apheresis (09/21/2016 10:30 AM EST) Pathologist [facility] Dispensed? Yes [facility] Blood specimen (specimen) 09/21/2016 10:30 AM EST 09/21/2016 10:28 AM EST Alirio Esparza MD BLOOD BANK PRODUCT ORDERABLES [facility] [place] [address] * (ABNORMAL) BLOOD GAS 2 ARTERIAL (09/21/2016 10:05 AM EST) pH, Arterial 7.33(L) 7.35 - 7.45 [facility] PCO2, Arterial 54(Critic al) 35 - 45 mmHg [facility] Comment:Noted by instrument setter. PO2, Arterial 218(H) 85 - 104 mmHg [...] [facility] Comment: Noted by instrument setter. Please note: Patients with WBC >100,000 may [...] [facility] Temp Art 37.0 Celsius [facility] Blood specimen (specimen) 09/21/2016 10:05 AM EST 09/21/2016 10:05 AM EST Alirio Esparza MD POINT OF CARE TEST ORDERABLES Performing Organization Address City/State/[facility] Co de Phone Number [facility] [place] [address] * (ABNORMAL) BLOOD GAS 2 ARTERIAL (09/21/2016 9:44 AM EST) pH, Arterial 7.22(Criti gabrielle) 7.35 - 7.45 [facility] Comment:Noted by instrument setter. PCO2, Arterial 70(Critica l) 35 - 45 mmHg [facility] Comment:Noted by instrument setter. PO2, Arterial 224(H) 85 - 104 mmHg [...] TEST ORDERABLES Performing Organization Address [facility] Co de Phone Number [facility] [place] [address] * (ABNORMAL) Hemoglobin (09/21/2016 9:42 AM EST) Hemoglobin 7.2(L) 11.7 - 15.5 gm/dL [facility] Blood specimen (specimen) 09/21/2016 9:42 AM EST 09/21/2016 9:51 AM EST Narrative Resulting Agency Comment Spec In Lab Alirio Esparza MD HEMATOLOGY ORDERABL ES Performing Organization Address City/[facility] Co de Phone Number [facility] [place] [address] * Platelet count (09/21/2016 9:42 AM EST) Platelet 159 145 - 357 x10(3)/mc L [facility] Immature Plt % 1.6 0.0 - 7.4 % [facility] Comment: Limitation of the Immature Platelet Fraction (IPF)-May be less reliable when the platelet count is less than 29x416/uL due to statistical imprecision. The IPF value [...] in a decreased state of production. References: [employer] The Clinical Value of the Immature Platelet Fraction (IPF) in Cell Recovery Document Number 10-1143 12/2010 [employer] The Role of the Immature Platelet Fraction (IPF) in the Differential Diagnosis of Thrombocytopenia, Document MKT-10-1209 V05 P012/13 Blood specimen (specimen) 09/21/2016 9:42 AM EST 09/21/2016 9:51 AM EST Narrative Resulting Agency Comment Spec In Lab Alirio Esparza MD HEMATOLOGY ORDERABL ES [facility] [place] [address] * (ABNORMAL) Hematocrit (09/21/2016 9:42 AM EST) [...] ORDERABL ES Performing Organization Address [facility] de Phone Number [facility] [place] [address] * Fibrinogen (09/21/2016 9:42 AM EST) Pathologist [facility] Fibrinogen 219 180 - 510 mg/dL [facility] [...] ORDERABL ES Performing Organization Address [facility] de Phone Number [facility] [place] [address] * (ABNORMAL) BLOOD GAS 2 ARTERIAL (09/21/2016 [...] [facility] Temp Art 37.0 Celsius [facility] Blood specimen (specimen) 09/21/2016 9:10 AM EST 09/21/2016 9:10 AM EST Alirio Esparza MD POINT OF CARE TEST ORDERABLES [facility] [place] [address] * Surgical Pathology Report (09/21/2016 9:09 AM EST) Final Diagnosis [id number] ?Location: The signing pathologist has (i) examined [...] Esparza MD PATHOLOGY/CYTOLOGY ORDERABLES Performing Organization Address City/[facility]/ZIP Co de Phone Number [facility] [place] [address] * Specimen to Pathology (surgical or derm) (09/21/2016 9:09 AM EST) AP Specimen 09/21/2016 9:09 AM EST 09/21/2016 9:09 AM EST Narrative [facility] - 09/21/2016 9:09 AM EST Specimen requisition ordered. ??Separate Pathology report to follow Alirio Esparza MD PATHOLOGY/CYTOLOGY ORDERABLES Performing Organization Address City/[facility]/ZIP Co de Phone Number [facility] [place] [address] * (ABNORMAL) BLOOD GAS 2 ARTERIAL (09/21/2016 [...] CARE TEST ORDERABLES [facility] [place] [address] * (ABNORMAL) BLOOD GAS 2 ARTERIAL (09/21/2016 [...] [facility] FIO2 Art 95 % [facility] Flow Art 1.1 LPM [facility] PF Ratio Art 298 [facility] Temp Art 35.6 Celsius [facility] Blood specimen (specimen) 09/21/2016 8:18 AM EST 09/21/2016 8:18 AM EST Alirio Esparza MD POINT OF CARE TEST ORDERABLES Performing Organization Address [facility] de Phone Number [facility] [place] [address] * Prepare RBC (09/21/2016 7:05 AM EST) Dispensed? Yes [facility] Blood specimen (specimen) 09/21/2016 7:05 AM EST 09/21/2016 7:02 AM EST Alirio Esparza MD BLOOD BANK PRODUCT ORDERABLES Performing Organization Address [facility] Phone Number [facility] [place] [address] * POCT Glucose (09/21/2016 6:42 AM EST) Glucose, POC 104 65 - 199 mg/dL [facility] Comment: Supplemental ranges: <140 mg/dL before meals <180 mg/dL all other times of the day Blood specimen (specimen) 09/21/2016 6:42 AM EST 09/21/2016 6:42 AM EST Alirio Esparza MD POINT OF CARE TEST ORDERABLES Performing Organization Address [facility] Phone Number [facility] [place] [address] documented in this encounter Visit Diagnoses Not [...] dose on Wed09/21/16 at 1230, Until Discontinued, [place] teeth, Routine Given 09/25/2016 9:40 AM EST [...] Kendall Martínez [facility]) aspirin chewable tablet 81 mg(Linked Group 1) 81 mg, Oral, DAILY, First dose on Wed09/22/16 at 0900, Until Discontinued, Start on post-op day 1 in the AM., Routine 0817 (Given - Provider: Elsa Miguel RN) 0829 (Given - Provider: Marek Barnes, VALDO) 0942 (Given - Provider: Joselyn Caceres RN) [...] dose on Wed09/21/16 at 1230, Until Discontinued, [place] teeth, Routine 0900 (Not Given - Provider: [...] Apple, RN)1708 (Given - Provider: Federico Apple, RN) 08 (Given - Provider: Marek Barnes, VALDO)1622 (Given - Provider: Chaya Hill, RN) 0941 (Given - Provider: Joselyn Caceres, [...] SP<90, Routine 08 (Given - Provider: Elsa Miguel, VALDO) meTOPROLOL tartrate (LOPRESSOR) tablet 25 mg 25 [...] 08 (See Alternative - Provider: Marek Barnes, RN) 0941 (See Alternative - Provider: Joselyn Caceres, VALDO) pantoprazole (PROTONIX) tablet 40 mg(Linked Group 2) 40 mg, Oral, DAILY, First dose on Wed09/21/16 at 1230, Until Discontinued, DO NOT CRUSH OR OPEN If unable to take PO, may give IV 0817 (Given - Provider: Elsa Miguel, RN) 08 (Given - Provider: Marek Barnes, [...] Routine documented in this encounter Care Teams Churn Drill Operator Relationship Specialty Start Date End Date Deborah Quiroga, ANURAG PCP - General Family Medicine 03/24/16 02/04/23 documented as of this encounter
--- OUTSIDE RECORDS SUMMARY | 2024-06-01 14:18 | XMS_ITS | Encounter Summary ---
Author Organization [facility] Address [facility] [place] [address] Care Team Providers Care Concrete Pump Operator Helper Name Role Phone Ashley Quirogazac Shields APRN Primary Care Provider [phone] Encounter Details Date Type Department Care Team (Latest Contact Info) Description 08/18/2016 4:40 PM EST Laboratory [place] [phone] Aortic valve stenosis, unspecified etiology Social History [...] PM EST Hospital Encounter [place] [phone] Markel Borjas MD [facility] [address] HEMATOLOGY [place] [address] 06/05/2024 2:00 PM EST - 06/05/2024 3:00 PM EST Surgery [place] [phone] Markel Borjas MD [facility] DR HEMATOLOGY [place] [address] (OSC MSURG) BONE MARROW BIOPSY AND ASPIRATION; DIAGNOSTIC (WRVU 1.44) 06/23/2024 2:00 PM EST Office Visit Hematology [place] [phone] Markel Borjas MD [facility] DR HEMATOLOGY [place] [address] 11/02/2024 12:00 PM EDT Appointment [place] [phone] 11/02/2024 1:00 PM EDT Office [place] [phone] Magdalena Peralta MD [facility] [place] [address] 03/01/2025 4:15 PM EDT Office Visit Dermatology at [place] [address] [facility] [place] [phone] Marek Bonilla MD [address], [place] [address] Scheduled Procedures Name Priority Associated Diagnoses Date/Ti me (OSC MSURG) BONE MARROW BIOPSY AND ASPIRATION; DIAGNOSTIC (WRVU 1.44) Anemia, in pt with longstanding neutropenia 06/05/2024 2:00 PM EST documented as of this encounter Procedures Procedure Name Priority Date/Time Associated Diagnosis Comments ABORH RECHECK STATUS Routine 08/18/2016 4:50 PM EST TYPE AND SCREEN, SDP (FUTURE SURGERY, [facility] SAME DAY PROGRAM ONLY) Routine [...] LAB BETH ALEJO Performing Organization Address [facility] Co de Phone Number [facility] [place] [address] * Antibody screen (08/18/2016 4:50 PM EST) Ab Screen Interp Negative [facility] Expires at [id number] on: 09/24/2016 [facility] Comment: Corrected from 09/17/16 12:00 [Unknown] on 09/09/16 02:32 by Shireen Treviño Blood specimen (specimen) 08/18/2016 4:50 PM EST 08/18/2016 5:11 PM EST Narrative Resulting Agency Comment Spec In Lab Alirio Esparza MD BLOOD BANK LAB JERADSylvia MELO Performing Organization Address City/[facility]/ZIP Co de Phone Number [facility] [place] [address] * ABO/Rh Typing (08/18/2016 4:50 PM EST) ABORH Type B Pos [facility] Blood specimen (specimen) 08/18/2016 4:50 PM EST 08/18/2016 5:11 PM EST Narrative Resulting Agency Comment Spec In Lab Alirio Esparza MD BLOOD BANK LAB JERADSylvia MELO [facility] [place] [address] * Basic Metabolic Panel (non-fasting) (08/18/2016 4:50 [...] the following links into your internet browser. [email or web address] Blood specimen (specimen) 08/18/2016 4:50 PM EST 08/18/2016 5:03 PM EST Narrative Resulting Agency Comment Spec In Lab Alirio Esparza MD CHEMISTRY ORDERABLE S Performing Organization Address City/State/[facility] Co de Phone Number [facility] [place] [address] documented in this encounter Visit Diagnoses Diagnosis Aortic valve stenosis, unspecified etiology documented in this encounter Care Teams Concrete Pump Operator Helper Relationship Specialty Start Date End Date Deborah Quiroga, APPRENTICE/LINEMAN PCP - General Family Medicine 03/24/16 02/04/23 documented as of this encounter
--- OUTSIDE RECORDS SUMMARY | 2024-06-01 14:18 | XMS_ITS | Encounter Summary ---
[place] [address] Care Team Providers Care Title Abstractor Name Role Phone Deborah Quiroga APRN Primary Care Provider [phone] Reason for Visit * Reason Onset Date Comments Prior Authorization 09/11/2016 Neulasta Encounter Details Date Type Department Care Team (Late st Contact Info) Description 09/11/2016 Telephone [place]ematology [place] [phone] Monica Wick Prior Authorization (Neulasta ) Social [...] AM EST Prior Auth for Neulasta (Approved) [facility] is a covered facility under the members plan. ID# [id number] Call placed to [phone] Rationale: Can you please start a PA for this pt to receive as outpatient at [facility] on 09/16/16? 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 ??Her last ANC was 0.56 (or 560) on 08/04/16. ??This will need to be approved through her medical as out patient. J code for neulasta. ?? [id number]. Spoke w/ Anna Marie Call Reference [id number] Copay: $ Deductible is not met, patient will have out of pocket costs until deductible is met. documented in this encounter Plan of Treatment Upcoming Encounters Date Type Department Care Team (Late st Contact Info) Description 06/05/2024 2:00 PM EST Hospital Encounter [facility] [place] [phone] Markel Borjas MD [facility] DR HEMATOLOGY [place] [address] 06/05/2024 2:00 PM EST - 06/05/2024 3:00 PM EST Surgery [facility] [place] [phone] Markel Borjas MD [facility] DR HEMATOLOGY [place] [address] (OSC MSURG) BONE MARROW BIOPSY AND ASPIRATION; DIAGNOSTIC (WRVU 1.44) 06/23/2024 2:00 PM EST Office Visit Hematology and Oncology at [place] [phone] Markel oBrjas MD [facility] DR HEMATOLOGY [place] [address] 11/02/2024 12:00 PM EDT Appointment Pulmonology at [place] [phone] 11/02/2024 1:00 PM EDT Office Visit Rheumatology at [place] [phone] Magdalena Peralta MD [facility] [place] [address] 03/01/2025 4:15 PM EDT Office Visit Dermatology at [place] [address] [place] [phone] Marek Bonilla MD [address], [place] [address] Scheduled Procedures Name Priority Associated Diagnoses Date/Ti me (OSC MSURG) BONE MARROW BIOPSY AND ASPIRATION; DIAGNOSTIC (WRVU 1.44) Anemia, in pt with longstanding neutropenia 06/05/2024 2:00 PM EST documented as of this encounter Visit Diagnoses Not on filedocumented in this encounter Care Teams Title Abstractor Relationship Specialty Start Date End Date Deborah Quiroga APRN PCP - General Family Medicine 03/24/16 02/04/23 documented as of this encounter
--- OUTSIDE RECORDS SUMMARY | 2024-06-01 14:18 | XMS_ITS | Encounter Summary ---
Author Organization [facility] [place] [address] Care Team Providers Care Manager Talent Management Name Role Phone Deborah Quiroga ANURAG Primary Care Provider +1 [phone] Encounter Details Date Type Department Care Team (Late st Contact Info) Description 09/17/2016 External Results [place] [phone] Alexandrea Greenwood RN Neutropenia, unspecified type Social [...] PM EST Hospital Encounter [place] [phone] Markel Borjas MD [facility] [address] [place] [address] 06/05/2024 2:00 PM EST - 06/05/2024 3:00 PM EST Surgery [place] [phone] Markel Borjas MD [facility] DR [place] [address] (OSC MSURG) BONE MARROW BIOPSY AND ASPIRATION; DIAGNOSTIC (WRVU 1.44) 06/23/2024 2:00 PM EST Office Visit Hematology and Oncology at [place] [phone] Markel Borjas MD [facility] [address] [place] [address] 11/02/2024 12:00 PM EDT [place] [address] 11/02/2024 1:00 PM EDT Office Visit Rheumatology at [place] [phone] Magdalena Peralta MD [facility] [place] [address] 03/01/2025 4:15 PM EDT Office Visit Dermatology at [place] [address] [facility] [place] [address] Marek Bonilla MD [address], [place] [address] Scheduled Procedures Name Priority Associated Diagnoses Date/Ti [...] documented in this encounter Care Teams Manager Talent Management Relationship Specialty Start Date End Date Deborah Quiroga, ADZING AND BORING MACHINE FEEDER PCP - General Family Medicine 03/24/16 02/04/23 documented as of this encounter
--- OUTSIDE RECORDS SUMMARY | 2024-06-01 14:18 | XMS_ITS | Encounter Summary ---
[place] [address] Care Team Providers Care Security Professional Name Role Phone Ashley Quirogazac Shields APRN Primary Care Provider [phone] Encounter Details Date Type Department Care Team (Late st Contact Info) Description 07/03/2016 External Results Hematology [place] [phone] Matthew Cervantes, DO [address] [place] [phone] Social History Tobacco Use Types Packs/Day Years [...] PM EST Hospital Encounter [place]patient [place] [phone] Markel Borjas MD [facility] DR [place] [address] 06/05/2024 2:00 PM EST - 06/05/2024 3:00 PM EST Surgery [place]patient [place] [address] Markel Borjas MD [facility] DR [place] [address] (OSC MSURG) BONE MARROW BIOPSY AND ASPIRATION; DIAGNOSTIC (WRVU 1.44) 06/23/2024 2:00 PM EST Office Visit Hematology [place] [phone] Markel Borjas MD [facility] DR [place] [address] 11/02/2024 12:00 PM EDT Appointment Pulmonology at [place] [phone] 11/02/2024 1:00 PM EDT Office Visit Rheumatology at [place] [phone] Magdalena Peralta MD [facility] [place] [address] 03/01/2025 4:15 PM EDT Office Visit Dermatology at [address] [place] [address] Marek Bonilla MD [address] [facility], [place] [address] Scheduled Procedures Name Priority Associated [...] filedocumented in this encounter Care Teams Security Professional Relationship Specialty Start Date End Date Deborah Quiroga, ASSEMBLY RIVETER PCP - General Family Medicine 03/24/16 02/04/23 documented as of this encounter
--- OUTSIDE RECORDS SUMMARY | 2024-06-01 14:18 | XMS_ITS | Encounter Summary ---
Author Organization [facility] [place] [address] Care Team Providers Care Director Of Workforce Development Name Role Phone Deborah Quiroga ANURAG Primary Care Provider [phone] Encounter Details Date Type Department Care Team (Late st Contact Info) Description 07/22/2016 External Results Hematology [place] [phone] Alexandrea Greenwood RN Neutropenia, unspecified type Social [...] PM EST Hospital Encounter [place]patient [place] [phone] Markel Borjas MD [facility] DR [place] [address] 06/05/2024 2:00 PM EST - 06/05/2024 3:00 PM EST Surgery [place] [phone] Markel Borjas MD [facility] DR [place] [address] (OSC MSURG) BONE MARROW BIOPSY AND ASPIRATION; DIAGNOSTIC (WRVU 1.44) 06/23/2024 2:00 PM EST Office Visit Hematology and Oncology at [place] [phone] Markel Borjas MD [facility] DR HEMATOLOGY [place] [address] 11/02/2024 12:00 PM EDT Appointment [place] [address] 11/02/2024 1:00 PM EDT Office Visit Rheumatology at [place] [phone] Magdalena Peralta MD [facility] [place] [address] 03/01/2025 4:15 PM EDT Office Visit Dermatology at [place] [address] [place] [address] Marek Bonilla MD [address], [place] [address] Scheduled Procedures Name Priority Associated Diagnoses Date/Ti [...] AM EST Neutropenia, unspecified type MONONUCLEOSIS SCREEN (APD/JEANNINE/[facility]/[place]) Routine 07/20/2016 10:30 AM EST Neutropenia, unspecified type CBC (WITH DIFF) Routine 07/20/2016 10:30 AM EST Neutropenia, unspecified type documented in this encounter Results * Copper, serum (07/20/2016 10:30 AM EST) Copper (NOVEMBER) 1.09 0.75 - 1.45 EXTERNAL LAB Blood specimen (specimen) 07/20/2016 10:30 AM EST Markel Borjas MD LAB SEND OUT ORDER JODIE Performing Organization Address [facility] de Phone Number EXTERNAL LAB * CMV PCR, Quantitative (07/20/2016 10:30 AM EST) Pathologist [facility] CMV PCR,Quantitati ve undetected EXTERNAL LAB Blood specimen (specimen) 07/20/2016 10:30 AM EST Markel Borjas MD MOLECULAR ORDERABL ES Performing Organization Address [facility] de Phone Number EXTERNAL LAB * Mononucleosis Screen (07/20/2016 10:30 AM EST) Pathologist [facility] Mononucleosis Screen neg neg - neg EXTERNAL LAB Blood specimen (specimen) 07/20/2016 10:30 AM EST Markel Borjas MD IMMUNOLOGY ORDERAB LES Performing Organization Address [facility] de Phone Number EXTERNAL LAB * (ABNORMAL) CBC (with Diff) (07/20/2016 10:30 AM EST) Pathologist [facility] White Blood Cell 1.61(A) 4.4 - 10.8 EXTERNAL LAB Hemoglobin 12.3 12.0 - 16.0 EXTERNAL LAB Hematocrit 37.2 36.0 - 46.0 EXTERNAL LAB Platelet 229 130 - 400 EXTERNAL LAB Blood specimen (specimen) 07/20/2016 10:30 AM EST Markel Borjas MD HEMATOLOGY ORDERAB LES Performing Organization Address [facility] de Phone Number EXTERNAL LAB documented in this encounter Visit Diagnoses Diagnosis Neutropenia, unspecified type documented in this encounter Care Teams Director Of Workforce Development Relationship Specialty Start Date End Date Deborah Quiroga, CONTINUOUS MINER PCP - General Family Medicine 03/24/16 02/04/23 documented as of this encounter
--- OUTSIDE RECORDS SUMMARY | 2024-06-01 14:18 | XMS_ITS | Encounter Summary ---
Author Organization [facility] [place] [address] Care Team Providers Care Newscast Director Name Role Phone Deborah Quiroga APRN Primary Care Provider [phone] Encounter Details Date Type Department Care Team (Late st Contact Info) Description 08/18/2016 Orders [place] [phone] Alirio Esparza MD Aortic valve stenosis, unspecified [...] PM EST Hospital Encounter Outpatient [place] [phone] Markel Borjas MD [facility] [address] [place] [address] 06/05/2024 2:00 PM EST - 06/05/2024 3:00 PM EST Surgery Outpatient [place] [phone] Markel Borjas MD [facility] [address] [place] [address] (OSC MSURG) BONE MARROW BIOPSY AND ASPIRATION; DIAGNOSTIC (WRVU 1.44) 06/23/2024 2:00 PM EST Office Visit [place]ematology [place] [address] Markel Borjas MD [facility] [address] [place] [address] 11/02/2024 12:00 PM EDT Appoint[place] [address] 11/02/2024 1:00 PM EDT Office [place] [address] Magdalena Peralta MD [facility] [place] [address] 03/01/2025 4:15 PM EDT Office Visit Dermatology at [address] [facility] [place] [address] Marek Bonilla MD [address], TODD A DERMATOLOGY [place], [place] [address] Scheduled Procedures Name Priority Associated Diagnoses Date/Ti [...] the following links into your internet browser. [email or web address] Blood specimen (specimen) 08/18/2016 4:50 PM EST 08/18/2016 5:03 PM EST Narrative Resulting Agency Comment Spec In Lab Alirio Esparza MD CHEMISTRY ORDERABLE S [facility] [place] [address] documented in this encounter Visit Diagnoses Diagnosis Aortic valve stenosis, unspecified etiology documented in this encounter Care Teams Newscast Director Relationship Specialty Start Date End Date Deborah Quiroga APRN PCP - General Family Medicine 03/24/16 02/04/23 documented as of this encounter
--- OUTSIDE RECORDS SUMMARY | 2024-06-01 14:18 | XMS_ITS | Encounter Summary ---
[place] [address] Care Team Providers Care Management Retail Intern Name Role Phone Ashley Quirogan Cornelius ANURAG Primary Care Provider [phone] Reason for Visit * Reason Onset Date Comments Medication Management 09/14/2016 Encounter Details Date Type Department Care Team (Late st Contact Info) Description 09/14/2016 Telephone Hematology [place] [phone] Alexandrea Greenwood, gas fitter apprentice Management Social History Tobacco Use Types Packs/Day [...] 09/14/2016 9:12 AM EST Message received from psychiatric secretary: Purnima called, asking for clarification on [...] PM EST Hospital Encounter Outpatient Surgery Center [place] [phone] Markel Borjas MD [facility] DR HEMATOLOGY [place] [address] 06/05/2024 2:00 PM EST - 06/05/2024 3:00 PM EST Surgery Outpatient [place] [phone] Markel Borjas MD [facility] DR HEMATOLOGY [place] [address] (OSC MSURG) BONE MARROW BIOPSY AND ASPIRATION; DIAGNOSTIC (WRVU 1.44) 06/23/2024 2:00 PM EST Office Visit [place]ematology [place] [phone] Markel Borjas MD [facility] DR HEMATOLOGY [place] [address] 11/02/2024 12:00 PM EDT Appointment Pulmonology at [place] [phone] 11/02/2024 1:00 PM EDT Office Visit Rheumatology at [place] [phone] Magdalena Peralta MD [facility] [place] [address] 03/01/2025 4:15 PM EDT Office Visit Dermatology at [place] [address] [place] [phone] Marek Bonilla MD [address], [place] [address] Scheduled Procedures Name Priority Associated Diagnoses Date/Ti me (OSC MSURG) BONE MARROW BIOPSY AND ASPIRATION; DIAGNOSTIC (WRVU 1.44) Anemia, in pt with longstanding neutropenia 06/05/2024 2:00 PM EST documented as of this encounter Visit Diagnoses Not on filedocumented in this encounter Care Teams Management Retail Intern Relationship Specialty Start Date End Date Deborah Quiroga, RAIL CAR WELDER PCP - General Family Medicine 03/24/16 02/04/23 documented as of this encounter
--- OUTSIDE RECORDS SUMMARY | 2024-06-01 14:18 | XMS_ITS | Encounter Summary ---
[place] [address] Care Team Providers Care Swim Instructor Name Role Phone Deborah Quiroga ANURAG Primary Care Provider [phone] Reason for Visit * Reason Onset Date Comments Medical Care Coordination 07/31/2016 Encounter Details Date Type Department Care Team (Late st Contact Info) Description 07/31/2016 Telephone Hematology [place] [phone] Alexandrea Greenwood RN Medical Care Coordination Social [...] 08/04/15 RN spoke with Aydee of the [facility] lab who states they can draw pt's cbc on 08/04/15, RN faxed lab req to [phone] at Aydee's request. RN instructed pt on Dr. Borjas's direction above. Pt verbalized understanding. documented in this encounter Plan of Treatment Upcoming Encounters Date Type Department Care Team (Late st Contact Info) Description 06/05/2024 2:00 PM EST Hospital Encounter Outpatient Surgery Center [place] [phone] Markel Borjas MD [facility] DR [place] [address] 06/05/2024 2:00 PM EST - 06/05/2024 3:00 PM EST Surgery Outpatient Surgery [facility] [place] [phone] Markel Borjas MD [facility] DR [place] [address] (OSC MSURG) BONE MARROW BIOPSY AND ASPIRATION; DIAGNOSTIC (WRVU 1.44) 06/23/2024 2:00 PM EST Office Visit Hematology and Oncology at [place] [phone] Markel Borjas MD [facility] DR [place] [address] 11/02/2024 12:00 PM EDT Appointment Pulmonology at [place] [address] 11/02/2024 1:00 PM EDT Office Visit Rheumatology at [place] [phone] Magdalena Peralta MD [facility] [address] 03/01/2025 4:15 PM EDT Office Visit Dermatology at [place] [address] [place] [address] Marek Bonilla MD [address] [facility], [place] [address] Scheduled Procedures Name Priority Associated Diagnoses Date/Ti me (OSC MSURG) BONE MARROW BIOPSY AND ASPIRATION; DIAGNOSTIC (WRVU 1.44) Anemia, in pt with longstanding neutropenia 06/05/2024 2:00 PM EST documented as of this encounter Visit Diagnoses Not on filedocumented in this encounter Care Teams Swim Instructor Relationship Specialty Start Date End Date Deborah Quiroga APRN PCP - General Family Medicine 03/24/16 02/04/23 documented as of this encounter
--- OUTSIDE RECORDS SUMMARY | 2024-06-01 14:18 | XMS_ITS | Encounter Summary ---
Author Organization [facility] [place] [address] Care Team Providers Care Sleeve Setter Safety Stitch Name Role Phone Deborah Quiroga ANURAG Primary Care Provider [phone] Encounter Details Date Type Department Care Team (Late st Contact Info) Description 07/31/2016 Orders Only Hematology [place] [phone] Alexandrea Greenwood RN Neutropenia, unspecified type Social [...] PM EST Hospital Encounter Outpatient [place] [phone] Markel Borjas MD [facility] DR HEMATOLOGY [place] [address] 06/05/2024 2:00 PM EST - 06/05/2024 3:00 PM EST Surgery Outpatient [place] [phone] Markel Borjas MD [facility] DR HEMATOLOGY [place] [address] ([facility] MSURG) BONE MARROW BIOPSY AND ASPIRATION; DIAGNOSTIC (WRVU 1.44) 06/23/2024 2:00 PM EST Office Visit Hematology and Oncology at [place] [phone] Markel Borjas MD [facility] DR [place] [address] 11/02/2024 12:00 PM EDT Appointment [place] [address] 11/02/2024 1:00 PM EDT Office Visit [place] [address] Magdalena Peralta MD [facility] [place] [address] 03/01/2025 4:15 PM EDT Office Visit Dermatology at [address] [place] [address] Marek Bonilla MD [address], TODD A DERMATOLOGY [place], [place] [phone] Scheduled Procedures Name Priority Associated Diagnoses Date/Ti [...] type documented in this encounter Care Teams Sleeve Setter Safety Stitch Relationship Specialty Start Date End Date Deborah Quiroga, CAR WORKER PCP - General Family Medicine 03/24/16 02/04/23 documented as of this encounter
--- OUTSIDE RECORDS SUMMARY | 2024-06-01 14:18 | XMS_ITS | Encounter Summary ---
Author Organization [facility] Address [facility] [place] [address] Care Team Providers Care Dowel Pin Man Name Role Phone Deborah Quiroga APRN Primary Care Provider Encounter Details Date Type Department Care Team (Late st Contact Info) Description 07/17/2016 9:00 AM EST Office Visit Hematology [place] [address] Markel Borjas MD [facility] DR [place] [address] Neutropenia, unspecified type Social History Tobacco Use [...] 9:00 AM EST Hematology Outpatient [facility] [...] TOUCH PREP, CLOT SECTION, CORE ??BIOPSY); [OSR# [id number], COLLECTED 06/23/2016, 19 SLIDES]: ?1. ??Normocellular marrow [...] a clonal lymphoproliferative or myeloproliferative disorder (OSR# [id number]) Chromosome analysis on the marrow aspirate revealed [...] 24 hour(s)). Labs will be drawn at [facility] next week Imaging As above - reviewed [...] leukopenia. Will consi kanwal talking to pt's parking analyst about a switch from [facility] to [...] the original note were not included. N [facility] LE[facility] HEM ONC [facility] [phone] Date: 07/17/16 Patient Name: Purnima Thacker : 1955 Diagnosis: neutropenia Referral to [site]: [facility] Orders: ? Labs: Fax results to . [x] Draw CBC, copper level, CMV PCR, mononucleosis screen on 07/20 Repeat CBC on 07/30 (to measure response of WBC after Neulasta) ? Growth factor: [x] Neulasta 6mg SQ injection x 1 on 07/20/2016 Signature: Markel Borjas MD beeper # [id number] documented in this encounter Plan of Treatment Upcoming Encounters Date Type Department Care Team (Late st Contact Info) Description 06/05/2024 2:00 PM EST Hospital Encounter [place]patient [place] [phone] Markel Borjas MD [facility] [place] [address] 06/05/2024 2:00 PM EST - 06/05/2024 3:00 PM EST Surgery [place] [address] Markel Borjas MD [facility] DR [place] [address] ([facility] MSURG) BONE MARROW BIOPSY AND ASPIRATION; DIAGNOSTIC (WRVU 1.44) 06/23/2024 2:00 PM EST Office Visit Hematology [place] [phone] Markel Borjas MD [facility] DR [place] [address] 11/02/2024 12:00 PM EDT Appointment [place] [address] 11/02/2024 1:00 PM EDT Office [place] [address] Magdalena Peralta MD [facility] [place] [address] 03/01/2025 4:15 PM EDT Office Visit Dermatology at [address] [place] [address] Marek Bonilla MD [address] [place] [address], [place] [address] Scheduled Procedures Name Priority Associated Diagnoses Date/Ti [...] MD HEMATOLOGY ORDERAB LES Performing Organization Address [facility] de Phone Number EXTERNAL LAB * Mononucleosis Screen (07/20/2016 10:30 AM EST) Mononucleosis Screen neg neg - neg EXTERNAL LAB Blood specimen (specimen) 07/20/2016 10:30 AM EST Markel Borjas MD IMMUNOLOGY ORDERAB LES Performing Organization Address [facility] de Phone Number EXTERNAL LAB * Copper, serum (07/20/2016 10:30 AM EST) Copper (NOVEMBER) 1.09 0.75 - 1.45 EXTERNAL LAB Blood specimen (specimen) 07/20/2016 10:30 AM EST Markel Borjas MD LAB SEND OUT ORDER JODIE Performing Organization Address [facility] Co de Phone Number EXTERNAL LAB * CMV PCR, Quantitative (07/20/2016 10:30 AM EST) Pathologist [facility] CMV PCR,Quantitati ve undetected EXTERNAL LAB Blood specimen (specimen) 07/20/2016 10:30 AM EST Markel Borjas MD MOLECULAR ORDERABL ES Performing Organization Address [facility] de Phone Number EXTERNAL [...] type documented in this encounter Care Teams Dowel Pin Man Relationship Specialty Start Date End Date Deborah Quiroga, CHILD CARE DIRECTOR PCP - General Family Medicine 03/24/16 02/04/23 documented as of this encounter
--- OUTSIDE RECORDS SUMMARY | 2024-06-01 14:18 | XMS_ITS | Encounter Summary ---
[place] [address] Care Team Providers Care Plugman Name Role Phone Deborah Quiroga ANURAG Primary Care Provider [phone] Reason for Visit * Reason Onset Date Comments Medical Care Coordination 07/17/2016 Encounter Details Date Type Department Care Team ([facility] Contact Info) Description 07/17/2016 Telephone Hematology [place] [phone] Alexandrea Greenwood RN Medical Care Coordination Social [...] 07/17/2016 12:07 PM EST Message received from notch grinder: Injection/Infusion Referral Call placed to [phone]). Spoke w/ Pasquale. Services to be provided for pt are: Labs @ 10am ([facility]) & Neulasta @ 11am on 07/20/16, CBC only on 07/30/16 Pasquale confirmed they would provide services to pt and I left [facility] pt to call for appt info. Pt demographics, office note, med list and orders faxed to [facility] & [facility] documented in this encounter Plan of Treatment Upcoming Encounters Date Type Department Care Team (Late st Contact Info) Description 06/05/2024 2:00 PM EST Hospital Encounter Outpatient [place] [phone] Markel Borjsa MD [facility] DR [place] [address] 06/05/2024 2:00 PM EST - 06/05/2024 3:00 PM EST Surgery [place] [phone] Markel Borjas MD [facility] DR [place] [address] (OSC MSURG) BONE MARROW BIOPSY AND ASPIRATION; DIAGNOSTIC (WRVU 1.44) 06/23/2024 2:00 PM EST Office Visit Hematology [place] [address]-1000 Markel Borjas MD [facility] DR [place] [address] 11/02/2024 12:00 PM EDT Appointment [place] [address] 11/02/2024 1:00 PM EDT Office Visit [place] [phone] Magdalena Peralta MD [facility] [address] 03/01/2025 4:15 PM EDT Office Visit Dermatology at [place] [address] [place] [address] Marek Bonilla MD [address] [place] [address] Scheduled Procedures Name Priority Associated Diagnoses Date/Ti me (OSC MSURG) BONE MARROW BIOPSY AND ASPIRATION; DIAGNOSTIC (WRVU 1.44) Anemia, in pt with longstanding neutropenia 06/05/2024 2:00 PM EST documented as of this encounter Visit Diagnoses Not on filedocumented in this encounter Care Teams Plugman Relationship Specialty Start Date End Date Deborah Quiroga, STRIKER OUT PCP - General Family Medicine 03/24/16 02/04/23 documented as of this encounter
--- OUTSIDE RECORDS SUMMARY | 2024-06-01 14:18 | XMS_ITS | Encounter Summary ---
[facility] [place] [address] Care Team Providers Care Welder Metal Fab Name Role Phone Deborah Quiroga ANURAG Primary Care Provider [phone] Encounter Details Date Type Department Care Team (Late st Contact Info) Description 08/04/2016 External Results Hematology [place] [phone] Aelxandrea Greenwood RN Neutropenia, unspecified type Social History [...] PM EST Hospital Encounter [place] [phone] Markel Borjas MD [facility] DR [place] [address] 06/05/2024 2:00 PM EST - 06/05/2024 3:00 PM EST Surgery [place] [phone] Markel Borjas MD [facility] DR [place] [address] (OSC MSURG) BONE MARROW BIOPSY AND ASPIRATION; DIAGNOSTIC (WRVU 1.44) 06/23/2024 2:00 PM EST Office Visit Hematology and Oncology at [place] [phone] Markel Borjas MD [facility] DR HEMATOLOGY [place] [address] 11/02/2024 12:00 PM EDT Appointment [place] [address] 11/02/2024 1:00 PM EDT Office Visit Rheumatology at [place] [phone] Magdalena Peralta MD [facility] DR [place] [address] 03/01/2025 4:15 PM EDT Office Visit Dermatology at [place] [address] [place] [facility] [address] Marek Bonilla MD [address], [place] [address] Scheduled Procedures Name Priority Associated Diagnoses Date/Ti [...] type documented in this encounter Care Teams Welder Metal Fab Relationship Specialty Start Date End Date Deborah Quiroga, HEAT TREAT TECHNICIAN PCP - General Family Medicine 03/24/16 02/04/23 documented as of this encounter
--- OUTSIDE RECORDS SUMMARY | 2024-06-01 14:18 | XMS_ITS | Encounter Summary ---
[place] [address] Care Team Providers Care Assistant Accounting Manager Name Role Phone JunaidDeborah APRN Primary Care Provider [phone] Reason for Visit * Reason Onset Date Comments Labs Only 09/16/2016 Encounter Details Date Type Department Care Team (Late st Contact Info) Description 09/16/2016 Telephone Hematology [place] [phone] Alexandrea Greenwood, RN Labs Only Social History [...] 11:09 AM EST Message received from medical secretary receptionist: Purnima is having her Neulasta done today at [facility]. ??She is wondering if we want to do a CBC prior to the injection? [phone] Borjas: CBC is fine RN spoke with Swapna at [facility] who confirms they can draw CBC on pt today, RN faxed CBC w/diff to [facility] lab at [phone] RN relayed to pt that CBC ordered had been faxed to [facility], pt will have CBC drawn today prior to neulasta injection. documented in this encounter Plan of Treatment Upcoming Encounters Date Type Department Care Team (Late st Contact Info) Description 06/05/2024 2:00 PM EST Hospital Encounter Outpatient [place] [phone] Markel Borjas MD [facility] DR [place] [address] 06/05/2024 2:00 PM EST - 06/05/2024 3:00 PM EST Surgery Outpatient [place] [phone] Markel Borjas MD [facility] DR [place] [address] (OSC MSURG) BONE MARROW BIOPSY AND ASPIRATION; DIAGNOSTIC (WRVU 1.44) 06/23/2024 2:00 PM EST Office Visit [place]ology [place] [address] Markel Borjas MD [facility] DR [place] [address] 11/02/2024 12:00 PM EDT Appoint[place] [address] 11/02/2024 1:00 PM EDT Office [place] [address] Magdalena Peralta MD [facility] [place] [address] 03/01/2025 4:15 PM EDT Office Visit Dermatology at [address] [place] [phone] Marek Bonilla MD [address], [place] [address] Scheduled Procedures Name Priority Associated Diagnoses Date/Ti [...] type documented in this encounter Care Teams Assistant Accounting Manager Relationship Specialty Start Date End Date Deborah Quiroga APRN PCP - General Family Medicine 03/24/16 02/04/23 documented as of this encounter
--- OUTSIDE RECORDS SUMMARY | 2024-06-01 14:18 | XMS_ITS | Encounter Summary ---
Author Organization [facility] [place] [address] Care Team Providers Care Strategic Consultant Name Role Phone Deborah Quiroga APRN Primary Care Provider Encounter Details Date Type Department Care Team (Latest Contact Info) Description 07/10/2016 2:54 PM EST - 07/10/2016 11:59 PM EST Hospital [place] [phone] Discharge Disposition: Home Social History Tobacco Use [...] PM EST Hospital Encounter Outpatient [place] [phone] Markel Borjas MD [facility] DR HEMATOLOGY [place] [address] 06/05/2024 2:00 PM EST - 06/05/2024 3:00 PM EST Surgery Outpatient [place] [phone] Markel Borjas MD [facility] DR HEMATOLOGY [place] [address] (OSC MSURG) BONE MARROW BIOPSY AND ASPIRATION; DIAGNOSTIC (WRVU 1.44) 06/23/2024 2:00 PM EST Office Visit Hematology [place] [phone] Markel Borjas MD [facility] DR HEMATOLOGY [place] [address] 11/02/2024 12:00 PM EDT Appointment [place] [address] 11/02/2024 1:00 PM EDT Office Visit Rheumatology at [place] [phone] Magdalena Peralta MD [facility] [place] [address] 03/01/2025 4:15 PM EDT Office Visit Dermatology at [place] [address] [place] [address] Marek Bonilla MD [address], [place] [address] Scheduled Procedures Name Priority Associated Diagnoses Date/Ti [...] Report (07/10/2016 3:43 PM EST) Final Diagnosis [id number] ?Location: OPW The signing pathologist has (i) examined the relevant preparation(s) for the specimen(s) and (ii) rendered or confirmed the diagnosis(es). . ? Bone Marrow Final DIAGNOSIS BONE MARROW (PERIPHERAL SMEAR, ASPIRATE SMEAR, TOUCH PREP, CLOT SECTION, CORE BIOPSY); [OSR# [id number], COLLECTED 06/23/2016, 19 SLIDES]: ?? 1. ??Normocellular [...] clonal lymphoproliferative or myeloproliferative ? disorder (OSR# [id number]) ?Chromosome analysis on the marrow aspirate revealed a normal female karyotype; ?46,XX[25] ??(OSR# [id number]) Electronically signed by: ??Elian Guillen MD Verified: [...] 3/uL Band/Seg 0.52 x103/uL; Lymph 0.75 x103/uL; Glenn 0.15 x103/uL; Eos 0.01%; Baso 0.01 x10 [...] plasma cells represent 3-4% of the cellularity [place] ? Polytypic plasma cell staining, high background Lambda ?Polytypic plasma cell staining, high background Block: ? B2 (Core biopsy 2) Fixative: ?? Formalin ANTIBODY: ?? RESULT/COMMENT CD3 ? Scattered small lymphocytes and lymphoid aggregates highlighted CD20 ?Few scattered small lymphocytes stain ( ?? <CD3 in aggregates) CD138 ? Scattered plasma cells represent 3-4% of the cellularity [place] ? Polytypic plasma cell staining, high background Lambda ?Polytypic plasma cell staining, high background Note: The immunoperoxidase stains reported above were developed and their performance characteristics determined by [facility]. ??They have not been cleared [...] CONSULTATION CASE A - 19 slides labeled [id number], collection date 06/23/2016. [id number] Report to: [facility] Surgical Pathology Department [facility], [facility], [address]nd Floor [address] [place] [address] ??[id number] 07/13/2016 11:[address] [facility] Consult Case 07/10/2016 3:43 PM EST 07/10/2016 3:43 PM EST Nitesh Pina Jr., MD PATHOLOGY/CYTOLOGY O RDERABLES Performing Organization Address City/State/[facility] Co de Phone Number [facility] [place] [address] documented in this encounter Visit Diagnoses Not on filedocumented in this encounter Care Teams Strategic Consultant Relationship Specialty Start Date End Date Deborah Quiroga APRN PCP - General Family Medicine 03/24/16 02/04/23 documented as of this encounter
--- OUTSIDE RECORDS SUMMARY | 2024-06-01 14:18 | XMS_ITS | Encounter Summary ---
[place] [address] Care Team Providers Care Forest Resources Professor Name Role Phone Deborah Quiroga NAURAG Primary Care Provider [phone] Encounter Details Date Type Department Care Team (Late st Contact Info) Description 09/11/2016 Orders Only Hematology [place] [address] Alexandrea Greenwood RN Social History [...] [facility] [phone] Date: 09/11/16 Patient Name: Onesimo Thacker : 1955 Diagnosis: Neutropenia Referral to [site]: [facility] Orders: ? Growth factor: [x] Neulasta 6mg SQ injection x 1 on 09/16/16 Signature: Markel Borjas MD beeper # [id number] Co-signature [if needed]: documented in this encounter Plan of Treatment Upcoming Encounters Date Type Department Care Team (Late st Contact Info) Description 06/05/2024 2:00 PM EST Hospital Encounter Outpatient [place] [phone] Markel Borjas MD [facility] [address] [place] [address] 06/05/2024 2:00 PM EST - 06/05/2024 3:00 PM EST Surgery Outpatient [place] [phone] Markel Borjas MD [facility] [address] [place] [address] (OSC MSURG) BONE MARROW BIOPSY AND ASPIRATION; DIAGNOSTIC (WRVU 1.44) 06/23/2024 2:00 PM EST Office Visit Hematology [place] [phone] Markel Borjas MD [facility] [address] [place] [address] 11/02/2024 12:00 PM EDT Appointment [place] [address] 11/02/2024 1:00 PM EDT Office [place] [address] Magdalena Peralta MD [facility] [place] [address] 03/01/2025 4:15 PM EDT Office Visit Dermatology at [place] [address] [place] [phone] Marek Bonilla MD [address], [place] [address] Scheduled Procedures Name Priority Associated Diagnoses Date/Ti [...] M ? (Age): 1955(61y) Med Rec#: ? [id number] ?Sex: ?M ? Site Loc: ? [facility] ?Ht / Wt: ??(cm)/ (kg) ? Pt. Loc: ?OR ? Study Date: ?? 09/21/2016 ?Pt. Type: Tape: ? 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 AVR for severe Rhythm: ? [...] ? Mid-Inferior ?Normal ? Mid-Inferoseptal ?Normal ? Clyde-Septal ? Normal ? Clyde-Anterior ? Normal ? [place]de-Lateral ?Normal ? [place]-Inferior ? Normal ? [place]de-Tip ?Normal ? This report has been electronically signed by: Henrik Yarbrough M.D. ? 09/22/2016 08:30:41 Images reviewed and interpretation verified [facility] Cardiac Ultrasound [facility] Procedure Note Henrik Yarbrough MD - 09/22/2016 Procedure: Transesophageal Echocardiogram Patient: ANDREW Mejias (Age): 1955(61y) Med Rec#: [id number] Sex: M Site Loc: [facility] Ht / Wt: (cm)/ (kg) Pt. Loc: OR Study Date: 09/21/2016 Pt. 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 09/22/2016 08:30:41 Images reviewed and interpretation verified [facility] Cardiac [facility]tras[facility] Unknown ECHO ORDERABLES documented in this encounter Visit Diagnoses Not on filedocumented in this encounter Care Teams Forest Resources Professor Relationship Specialty Start Date End Date Deborah Quiroga, GRAIN [employer] YEAST PLANTS SUPERVISOR PCP - General Family Medicine 03/24/16 02/04/23 documented as of this encounter
--- OUTSIDE RECORDS SUMMARY | 2024-06-01 14:18 | XMS_ITS | Encounter Summary ---
[place] [address] Care Team Providers Care Supervisor Laboratory Name Role Phone Junaid Deborah Shields APRN Primary Care Provider [phone] Reason for Visit * Auth/Cert Specialty Diagnoses / Procedures Referred By Crispin t Referred To Contact Diagnoses Aortic stenosis Procedures PRO REPLACE AORT VALV, PROSTH VALV @REPLACE AORTIC VALVE, OPEN, W\CPB, W\PROSTHETIC VALVE (WRVU 41.32) Referral ID Status Reason Start Date Expiration Date Visits Re quested Visits Authorized [id number] 1 1 Encounter Details Date Type Department Care Team (Late st Contact Info) Description 09/21/2016 7:25 AM EST Anesthesia Event [place] [address] Luis Enrique Quarles MD [facility] [place] [address] Henrik Cooper MD [facility] [place] [address] Anesthesia Record Procedure Summary Procedure Name Responsible [...] 0819 Sternotomy 0844 CV Bypass init 1009 Staff Trainer 1014 An Clamp Remove 1031 CP Bypass [...] 10; none; 09/23/16; 0700 09/21/16 0000 by Tosiha Alejandre RN 09/23/16 0700 by Marcie Frazier RN Incision 09/21/16; chest; 03/30/22 (LDA cleanup utility RA#[id number]); 1715 (LDA cleanup utility RA#[id number]) 09/21/16 0000 by Toshia Alejandre RN 03/30/22 1715 by Fredy Wing Chest Tube 09/21/16 (#28 angled chest tube to [place]: left: pericardial); Left; 09/22/16; 1119 09/21/16 0000 by Toshia Alejandre RN 09/22/16 1119 by Vero Bonilla RN Chest Tube 09/21/16 (#28 straig ht chest tube to [place]; right: mediastinal'); Right; mediastinum; 09/22/16; 1118 09/21/16 0000 by Toshia Alejandre RN 09/22/16 1118 by Vero Bonilla RN (RETIRED) Peripheral IV Line - Single Lumen 09/21/16; 0648; metacarpal vein (top of hand), left; aukt-wah-icxvhl catheter system; 20 gauge; valdo Arteaga; 09/23/16; [...] Stop Room / Location 09/21/16 07 1152 [facility] OR 16 / [facility] MAIN OR Procedure Diagnosis Surgeon Responsible Provider @REPLACE AORTIC VALVE, OPEN, W\CPB, W\PROSTHETIC VALVE (WRVU 41.32) (N/A Chest); @AORTOPLASTY FOR SUPRAVALVULAR STENOSIS (WRVU 29.33) (N/A Chest) () Alirio Francisco MD Clark, Jeffrey A, MD All Anesthesia Providers: Anesthesiologist: Luis Enrique Quarles MD Reading Recovery Teacher: Henrik Cooper MD Last (1hr) Vitals: BP Temp 36.1 ??C (97 ??F) (09/21/16 1800) Pulse 79 (09/21/16 1800) Resp 11 (09/21/16 1800) SpO2 98 % (09/21/16 1800) Patient Location: [facility] Level of Consciousness: Sedated (Pharmacologic/Intentional) Pain [...] EST Hospital Encounter Outpatient [place] [address] Markel Borjas MD [facility] HEMATOLOGY [place] [address] 06/05/2024 2:00 PM EST - 06/05/2024 3:00 PM EST Surgery Out[facility] [place] [phone] Markel Borjas MD [facility] DR [place] [address] (OSC MSURG) BONE MARROW BIOPSY AND ASPIRATION; DIAGNOSTIC (WRVU 1.44) 06/23/2024 2:00 PM EST Office Visit Hematology and Oncology at [address] Markel Borjas MD [facility] DR [place] [address] 11/02/2024 12:00 PM EDT Appointment Pulmonology at [place] [address] 11/02/2024 1:00 PM EDT Office Visit Rheumatology at [address] Magdalena Peralta MD [facility] [place] [address] 03/01/2025 4:15 PM EDT Office Visit Dermatology at [place] [address] [place] [address] Marek Bonilla MD [address] [place] [address] Scheduled Procedures Name Priority Associated [...] documented in this encounter Care Teams Supervisor Laboratory Relationship Specialty Start Date End Date Deborah Quiroga, HAT LINING PASTER PCP - General Family Medicine 03/24/16 02/04/23 documented as of this encounter
--- OUTSIDE RECORDS SUMMARY | 2024-06-01 14:18 | XMS_ITS | Encounter Summary ---
Author Organization [facility] [place] [address] Care Team Providers Care Assistant County Engineer Name Role Phone Junaid, Deborah Shields APRN Primary Care Provider [phone] Encounter Details Date Type Department Care Team (Late st Contact Info) Description 07/13/2016 External [place] [phone] Provider, Scanning Social History Tobacco Use Types [...] PM EST Hospital Encounter Outpatient [place] [phone] Markel Borjas MD [facility] DR HEMATOLOGY [place] [address] 06/05/2024 2:00 PM EST - 06/05/2024 3:00 PM EST Surgery [facility] [phone] Markel Borjas MD [facility] DR HEMATOLOGY [place] [address] (OSC MSURG) BONE MARROW BIOPSY AND ASPIRATION; DIAGNOSTIC (WRVU 1.44) 06/23/2024 2:00 PM EST Office Visit Hematology and Oncology at [place] [phone] Markel Borjas MD [facility] DR HEMATOLOGY [place] [address] 11/02/2024 12:00 PM EDT Appointment Pulmonology at [place] [phone] 11/02/2024 1:00 PM EDT Office Visit Rheumatology at [place] [phone] Magdalena Peralta MD [facility] [place] [address] 03/01/2025 4:15 PM EDT Office Visit Dermatology at [place] [address] [place] [address] Marek Bonilla MD [address] [facility], [place] [address] Scheduled Procedures [...] filedocumented in this encounter Care Teams Assistant County Engineer Relationship Specialty Start Date End Date Dbeorah Quiroga, PRESSURE WELDER PCP - General Family Medicine 03/24/16 02/04/23 documented as of this encounter
--- OUTSIDE RECORDS SUMMARY | 2024-06-01 14:19 | XMS_ITS | Encounter Summary ---
Author Organization Formerly [facility] Address [facility] [place] [address] Care Team Providers Care Biodiesel Division Manager Name Role Phone JunaidAshley hargrovezac Shields APRN Primary Care Provider [phone] Reason for Visit * Auth/Cert Specialty Diagnoses / Procedures Referred By Crispin t Referred To Contact Diagnoses AVS Procedures CARDIAC CATHETERIZATION Referral ID Status Reason Start Date Expiration Date Visits Re quested Visits Authorized [id number] 1 1 Encounter Details Date Type Department Care Team (Late st Contact Info) Description 06/03/2016 6:32 AM EDT - 06/03/2016 1:10 PM EDT Hospital Encounter [place] [phone] Anjum Oliveros II, MD [facility] [place] [address] Mario Alberto Escobedo MD [facility] [place] [address] Aortic valve stenosis, unspecified etiology; Nonrheumatic aortic [...] by your doctor, do not take any uhcc-rpp-vszdyfy medicinesor herbal preparations without first discussing this with your doctor or pharmacist. There is the possibility of side effects and interactions when these are combined. Follow Up Care Who to call with questions or problems If there are any questions or problems that you think might be related to your cardiac cath or angioplasty, contact the veterinary laboratory diagnostician quality control lab tech by calling [facility] at . * Patient Instructions* Felicia Corrigan - 06/03/2016 9:33 AM EDT Cardiology Instructions Call your doctor if: Chest pain, dyspnea, pain or swelling in legs occurs. If you have non-emergent questions between now and the time of your follow up appointments: -During 8am-5pm Wednesday through Wednesday call [phone] to speak with a nurse in the cardiology clinic -All other times call [phone] and ask to speak to the family dentist quality control lab tech. MEDICATIONS - restart your spironolactone, discontinue prior [...] Appointments: Primary care provider: Cardiology: Deborah Hahn, DENTAL TECHNICIAN METAL [phone] Follow up as planned or as needed. Dr. Esparza [phone] Other follow-up appointment: Hematology - Dr. Mario [...] PM EST Hospital Encounter [place] [address] Markel Borjas MD [facility] DR [place] [address] 06/05/2024 2:00 PM EST - 06/05/2024 3:00 PM EST Surgery [place]patient [place] [address] Markel Borjas MD [facility] DR [place] [address] (OSC MSURG) BONE MARROW BIOPSY AND ASPIRATION; DIAGNOSTIC (WRVU 1.44) 06/23/2024 2:00 PM EST Office Visit [place] [address] Markel Borjas MD [facility] DR [place] [address] 11/02/2024 12:00 PM EDT Appoint[place] [address] 11/02/2024 1:00 PM EDT Office [place] [address] Magdalena Peralta MD [facility] [place] [address] 03/01/2025 4:15 PM EDT Office Visit Dermatology at [place] [address] [place] [phone] Marek Bonilla MD [address], [address] DERMATOLOGY [place], [place] [phone] Scheduled Procedures Name Priority Associated Diagnoses Date/Ti [...] Green Tube HOLD (06/03/2016 11:45 AM EDT) [facility] [address] Green Hold Sample in lab. [facility] Blood specimen (specimen) Venous Draw / Unknown 06/03/2016 11:45 AM EDT 06/03/2016 12:12 PM EDT Mario Alberto Escobedo MD CHEMISTRY ORDERABLES Performing Organization Address [facility] Co de Phone Number [facility] [place] [address] * Methylmalonic acid, serum (06/03/2016 11:45 AM EDT) [facility] [address] Methylmalonic Acid (NOVEMBER) 0.21 <=0.40 nmol/mL [facility] Comment: Test Performed by: [place] [address] Labor Operator: Raymond Chaudhry II, M.D., Ph.D. Blood specimen (specimen) 06/03/2016 11:45 AM EDT 06/03/2016 1:57 PM EDT Narrative Resulting Agency Comment Spec In Lab Mario Alberto Escobedo MD LAB SEND OUT ORDERAB LES Performing Organization Address [facility] Co de Phone Number [facility] [place] [address] * Granulocyte Antibody (06/03/2016 11:45 AM EDT) [facility] [address] Granulocyte Ab (NOVEMBER) Negative Not Applicable [facility] Comment: ADDITIONAL INFORMATION Method: Immunofluorescent Assay Performing Laboratory CLIA# [id number] This test was developed and its performance characteristics determined by [facility] in a manner consistent with CLIA requirements. This test has not been cleared or approved by the U.S. Food and Drug Administration. Test Performed by: [facility] - [address] [address] Labor Operator: Raymond Chaudhry II, M.D., Ph.D. Blood specimen (specimen) 06/03/2016 11:45 AM EDT 06/03/2016 1:57 PM EDT Narrative Resulting Agency Comment Spec In Lab Mario Alberto Escobedo MD LAB SEND OUT ORDERAB LES Performing Organization Address [facility]/ZIP Co de Phone Number [facility] [place] [address] * TSH (06/03/2016 11:45 AM EDT) [facility] [address] Thyroid Stimulating Hormone 2.18 0.27 - 4.20 mcIU/mL [facility] Blood specimen (specimen) 06/03/2016 11:45 AM EDT 06/03/2016 12:11 PM EDT Narrative Resulting Agency Comment Spec In Lab Mario Alberto Escobedo MD CHEMISTRY ORDERABLES Performing Organization Address [facility] Co de Phone Number [facility] [place] [address] * Homocysteine Total, Plasma (06/03/2016 11:45 AM EDT) [facility] [address] Homocystine 9 <=15 mcmol/L [facility] Blood specimen (specimen) 06/03/2016 11:45 AM EDT 06/03/2016 12:11 PM EDT Narrative Resulting Agency Comment Spec In Lab Mario Alberto Escobedo MD CHEMISTRY ORDERABLES Performing Organization Address [facility]/ZIP Co de Phone Number [facility] [place] [address] * Folate, serum (06/03/2016 11:45 AM EDT) Folate >20.0 4.8 - 24.2 ng/mL [facility] Blood specimen (specimen) 06/03/2016 11:45 AM EDT 06/03/2016 12:04 PM EDT Narrative Resulting Agency Comment Spec In Lab Mario Alberto Escobedo MD CHEMISTRY ORDERABLES Performing Organization Address City/[facility]/ZIP Co de Phone Number [facility] [place] [address] * (ABNORMAL) Sedimentation rate (06/03/2016 11:45 AM EDT) [facility] [address] Sedimentation Rate Automated 41(H) 0 - 20 mm/hr [facility] Blood specimen (specimen) 06/03/2016 11:45 AM EDT 06/03/2016 12:04 PM EDT Narrative Resulting Agency Comment Spec In Lab Mario Alberto Escobedo MD HEMATOLOGY ORDERABLE S Performing Organization Address [facility] Co de Phone Number [facility] [place] [address] * Lactate Dehydrogenase (06/03/2016 11:45 AM EDT) [facility] [address] Lactate Dehydrogenase 164 110 - 220 unit/L [facility] Blood specimen (specimen) 06/03/2016 11:45 AM EDT 06/03/2016 12:11 PM EDT Narrative Resulting Agency Comment Spec In Lab Mario Alberto Escobedo MD CHEMISTRY ORDERABLES Performing Organization Address [facility]/ZIP Co de Phone Number [facility] [place] [address] * Comprehensive metabolic panel (non-fasting) (06/03/2016 11:45 [...] the following links into your internet browser. [email or web address] [email or web address] Blood specimen (specimen) 06/03/2016 11:45 AM EDT 06/03/2016 12:11 PM EDT Narrative Resulting Agency Comment Spec In Lab Mario Alberto Escobedo MD CHEMISTRY ORDERABLES [facility] [place] [address] documented in this encounter Visit Diagnoses Diagnosis [...] Routine 0654 (Given - Provid er: Alie Madrid, VALDO) [...] Hernandez) documented in this encounter Care Teams Biodiesel Division Manager Relationship Specialty Start Date End Date Deborah Quiroga, DENTAL TECHNICIAN METAL PCP - General Family Medicine 03/24/16 02/04/23 documented as of this encounter
--- OUTSIDE RECORDS SUMMARY | 2024-06-01 14:19 | XMS_ITS | Encounter Summary ---
Author Organization [facility] [place] [address] Care Team Providers Care Credit Risk Modeler Name Role Phone Ashley Quirogan Sylvia ANURAG Primary Care Provider [phone] Encounter Details Date Type Department Care Team (Late st Contact Info) Description 06/16/2016 Orders Only Hematology [place] [phone] Nitesh Pina Jr., MD [facility] [address] [place] [address] Cyclical neutropenia Social History Tobacco Use Types [...] PM EST Hospital Encounter [place] [address] Markel Borjas MD [facility] [address] [place] [address] 06/05/2024 2:00 PM EST - 06/05/2024 3:00 PM EST Surgery [place] [address] Markel Borjas MD [facility] [address] [place] [address] (OSC MSURG) BONE MARROW BIOPSY AND ASPIRATION; DIAGNOSTIC (WRVU 1.44) 06/23/2024 2:00 PM EST Office Visit Hematology and Oncology at [place] [phone] Markel Borjas MD [facility] [address] [place] [address] 11/02/2024 12:00 PM EDT Appointment Pulmonology at [address] 11/02/2024 1:00 PM EDT Office Visit Rheumatology at [place] [address] Magdalena Peralta MD [facility] [place] [address] 03/01/2025 4:15 PM EDT Office Visit Dermatology at [address] [place] [phone] Marek Bonilla MD [address] [facility] [address] A DERMATOLOGY [place], [place] [phone] Scheduled Procedures Name Priority Associated Diagnoses Date/Ti me (OSC MSURG) BONE MARROW BIOPSY AND ASPIRATION; DIAGNOSTIC (WRVU 1.44) Anemia, in pt with longstanding neutropenia 06/05/2024 2:00 PM EST documented as of this encounter Visit Diagnoses Diagnosis Cyclical neutropenia Cyclic neutropenia documented in this encounter Care Teams Credit Risk Modeler Relationship Specialty Start Date End Date Deborah Quiroga APRN PCP - General Family Medicine 03/24/16 02/04/23 documented as of this encounter
--- OUTSIDE RECORDS SUMMARY | 2024-06-01 14:19 | XMS_ITS | Encounter Summary ---
Author Organization [facility] [place] [address] Care Team Providers Care Scratch Finisher Name Role Phone Ashley Quirogazac Shields APRN Primary Care Provider [phone] Encounter Details Date Type Department Care Team (Latest Contact Info) Description 05/19/2016 11:20 AM EDT Laboratory [place] [phone] Nonrheumatic aortic valve stenosis Social History Tobacco [...] EST Hospital Encounter Outpatient [place] [phone] Markel Borjas MD [facility] [address] [place] [address] 06/05/2024 2:00 PM EST - 06/05/2024 3:00 PM EST Surgery Outpatient [place] [phone] Markel Borjas MD [facility] [address] [place] [address] (OSC MSURG) BONE MARROW BIOPSY AND ASPIRATION; DIAGNOSTIC (WRVU 1.44) 06/23/2024 2:00 PM EST Office Visit [place]ology [place] [phone] Markel Borjas MD [facility] [address] [place] [address] 11/02/2024 12:00 PM EDT Appointment [place] [address] 11/02/2024 1:00 PM EDT Office [place] [address] Magdalena Peralta MD [facility] [place] [address] 03/01/2025 4:15 PM EDT Office Visit Dermatology at [place] [address] [place] [address] Marek Bonilla MD [address] [place] [address] Scheduled Procedures Name Priority Associated Diagnoses Date/Ti [...] – [place] SAME DAY PROGRAM ONLY) Routine 05/19/2016 11:32 [...] (05/19/2016 11:32 AM EDT) Plat estimate Normal [facility] RBC Morphology Normal [facility] Blood specimen (specimen) 05/19/2016 11:32 AM EDT 05/19/2016 11:41 AM EDT Narrative Resulting Agency Comment Spec In Lab Alirio Esparza MD HEMATOLOGY ORDERABL ES [facility] [place] [address] * (ABNORMAL) Differential, Automated (05/19/2016 11:32 AM EDT) Pathologist [facility] Neutrophil % 25.9 % [facility] Neutrophil Absolute 0.42(Crit ical) 1.70 - 6.10 x10(3)/mc L [facility] Comment: This result has been called to DR ALIRIO ESPARZA by Alivia Ibarra on 05 19 2016 at 1228, and has been read back. Lymph % 59.9 % [facility] Lymphocytes Abs 1.0 0.9 - 3.2 x10(3)/mc L [facility] Monocyte % 13.0 % [facility] Monocyte Abs 0.2(L) 0.3 - 0.9 x10(3)/mc L [facility] Eos % 0.6 % [facility] Eosinophils Abs 0.0 0.0 - 0.4 x10(3)/mc L [facility] Basophil % 0.6 % [facility] Baso Absolute [...] Absolute 0.00 0.00 - 0.04 x10(3)/ L [facility] Blood specimen (specimen) 05/19/2016 11:32 AM EDT 05/19/2016 11:41 AM EDT Narrative Resulting Agency Comment Spec In Lab Alirio Esparza MD HEMATOLOGY ORDERABL ES [facility] [place] [address] * (ABNORMAL) Hemogram (05/19/2016 11:32 AM EDT) White Blood Cell 1.6(Criti gabrielle) 4.0 - 9.5 x10(3)/ L [facility] Comment: This [...] Platelet 227 145 - 357 x10(3)/mc L [facility] RDW Standard Deviation 40.5 37.0 - 46.0 fL [facility] RDW coefficient of variation 11.5 11.5 - 14.1 % [facility] Mean Platelet Volume 8.4 7.6 - 12.9 fL [facility] NRBC% auto 0.0 % [facility] NRBC Absolute 0.000 0.000 - 0.000 x10(3)/mc L [facility] Blood specimen (specimen) 05/19/2016 11:32 AM EDT 05/19/2016 11:41 AM EDT Narrative Resulting Agency Comment Spec In Lab Alirio Esparza MD HEMATOLOGY ORDERABL ES Performing Organization Address [facility] Co de Phone Number [facility] [address] * Antibody screen (05/19/2016 11:32 AM EDT) Ab Screen Interp Negative [facility] Expires at [id number] on: 07/03/2016 [facility] Comment: Corrected from 06/11/16 12:00 [Unknown] on 06/09/16 05:51 by Bethanie Tomlinson I.. Corrected from 07/03/16 12:00 [Unknown] on 05/21/16 06:00 by Shelia Barrera Blood specimen (specimen) 05/19/2016 11:32 AM EDT 05/19/2016 11:35 AM EDT Narrative Resulting Agency Comment Spec In Lab Alirio Esparza MD BLOOD BANK LAB ORDE RABLES Performing Organization Address City/[facility]/ZIP Co de Phone Number [facility] [address] * ABO/Rh Typing (05/19/2016 11:32 AM EDT) ABORH Type B Pos [facility] Blood specimen (specimen) 05/19/2016 11:32 AM EDT 05/19/2016 11:35 AM EDT Narrative Resulting Agency Comment Spec In Lab Alirio Esparza MD BLOOD BANK LAB [place] [facility] [place] [address] * Basic Metabolic Panel (non-fasting) (05/19/2016 11:32 [...] the following links into your internet browser. [email or web address] Blood specimen (specimen) 05/19/2016 11:32 AM EDT 05/19/2016 11:41 AM EDT Narrative Resulting Agency Comment Spec In Lab Alirio Esparza MD CHEMISTRY ORDERABLE S [place] [id number] documented in this encounter Visit Diagnoses Diagnosis Nonrheumatic aortic valve stenosis Aortic valve disorders documented in this encounter Care Teams Scratch Finisher Relationship Specialty Start Date End Date Deborah Quiroga APRN PCP - General Family Medicine 03/24/16 02/04/23 documented as of this encounter
--- OUTSIDE RECORDS SUMMARY | 2024-06-01 14:19 | XMS_ITS | Encounter Summary ---
Author Organization [facility] Address [facility] [place] [address] Care Team Providers Care Lamination Inspector Name Role Phone Junaid, Deborah Shields APRN Primary Care Provider [phone] Reason for Visit * Auth/Cert Specialty Diagnoses / Procedures Referred By Crispin t Referred To Contact Diagnoses AVS Procedures CARDIAC CATHETERIZATION Referral ID Status Reason Start Date Expiration Date Visits Re quested Visits Authorized [id number] 1 1 Encounter Details Date Type Department Care Team (Late st Contact Info) Description 06/03/2016 7:30 AM EDT - 06/03/2016 8:30 AM EDT [place] [phone] Mario Alberto Escobedo MD [facility] [place] [address] CARDIAC CATHETERIZATION Social History Tobacco Use Types [...] by your doctor, do not take any [id number]-[id number] medicinesor herbal preparations without first discussing this with your doctor or pharmacist. There is the possibility of side effects and interactions when these are combined. Follow Up Care Who to call with questions or problems If there are any questions or problems that you think might be related to your cardiac cath or angioplasty, contact the can inspector recreation therapy aide by calling [facility] at . * Patient Instructions* Felicia Corrigan - 06/03/2016 9:33 AM EDT Cardiology Instructions Call your doctor if: Chest pain, dyspnea, pain or swelling in legs occurs. If you have non-emergent questions between now and the time of your follow up appointments: -During 8am-5pm Wednesday through Wednesday call [phone] to speak with a nurse in the cardiology clinic -All other times call [phone] and ask to speak to the can vacuum tester recreation therapy aide. MEDICATIONS - restart your spironolactone, discontinue prior [...] Appointments: Primary care provider: Cardiology: Deborah Hahn, NEWSPAPER MANAGER [phone] Follow up as planned or as needed. Dr. Espraza [phone] Other follow-up appointment: Hematology - Dr. Mario [...] PM EST Hospital Encounter [place] [address] Markel Borjas MD [facility] [place] [address] 06/05/2024 2:00 PM EST - 06/05/2024 3:00 PM EST Surgery [place] [address] Markel Borjas MD [facility] [place] [address] (OSC MSURG) BONE MARROW BIOPSY AND ASPIRATION; DIAGNOSTIC (WRVU 1.44) 06/23/2024 2:00 PM EST Office Visit Hematology [place] [phone] Markel Borjas MD [facility] [place] [address] 11/02/2024 12:00 PM EDT Appointment [place] [address] 11/02/2024 1:00 PM EDT Office [place] [address] Magdalena Peralta MD [facility] [place] [address] 03/01/2025 4:15 PM EDT Office Visit Dermatology at [place] [address] [place] [phone] Marek Bonilla MD [address], [place] [address] Scheduled Procedures Name Priority Associated [...] Green Tube HOLD (06/03/2016 11:45 AM EDT) [facility] Green Hold Sample in lab. [facility] Blood specimen (specimen) Venous Draw / Unknown 06/03/2016 11:45 AM EDT 06/03/2016 12:12 PM EDT Mario Alberto Escobedo MD CHEMISTRY ORDERABLES Performing Organization Address [facility] de Phone Number [facility] [place] [address] * Methylmalonic acid, serum (06/03/2016 11:45 AM EDT) [facility] Methylmalonic Acid (NOVEMBER) 0.21 <=0.40 nmol/mL [facility] Comment: Test Performed by: [place] [address] Engineering Programmer: Raymond Chaudhry II, M.D., Ph.D. Blood specimen (specimen) 06/03/2016 11:45 AM EDT 06/03/2016 1:57 PM EDT Narrative Resulting Agency Comment Spec In Lab Mario Alberto Escobedo MD LAB SEND OUT ORDERAB LES Performing Organization Address [facility] de Phone Number [facility] [place] [address] * Granulocyte Antibody (06/03/2016 11:45 AM EDT) [facility] Granulocyte Ab (NOVEMBER) Negative Not Applicable [facility] Comment: ADDITIONAL INFORMATION Method: Immunofluorescent Assay Performing Laboratory CLIA# [id number] This test was developed and its performance characteristics determined by [facility] in a manner consistent with CLIA requirements. This test has not been cleared or approved by the U.S. Food and Drug Administration. Test Performed by: [place] [address] Engineering Programmer: Raymond Chaudhry II, M.D., Ph.D. Blood specimen (specimen) 06/03/2016 11:45 AM EDT 06/03/2016 1:57 PM EDT Narrative Resulting Agency Comment Spec In Lab Mario Alberto Escobedo MD LAB SEND OUT ORDERAB LES Performing Organization Address [facility] Co de Phone Number [facility] [place] [address] * TSH (06/03/2016 11:45 AM EDT) Thyroid Stimulating Hormone 2.18 0.27 - 4.20 mcIU/mL [facility] Blood specimen (specimen) 06/03/2016 11:45 AM EDT 06/03/2016 12:11 PM EDT Narrative Resulting Agency Comment Spec In Lab Mario Alberto Escobedo MD CHEMISTRY ORDERABLES Performing Organization Address [facility] Co de Phone Number [facility] [place] [address] * Homocysteine Total, Plasma (06/03/2016 11:45 AM EDT) Homocystine 9 <=15 mcmol/L [facility] Blood specimen (specimen) 06/03/2016 11:45 AM EDT 06/03/2016 12:11 PM EDT Narrative Resulting Agency Comment Spec In Lab Mario Alberto Escobedo MD CHEMISTRY ORDERABLES Performing Organization Address [facility] Co de Phone Number [facility] [place] [address] * Folate, serum (06/03/2016 11:45 AM EDT) Folate >20.0 4.8 - 24.2 ng/mL [facility] Blood specimen (specimen) 06/03/2016 11:45 AM EDT 06/03/2016 12:04 PM EDT Narrative Resulting Agency Comment Spec In Lab Mario Alberto Escobedo MD CHEMISTRY ORDERABLES Performing Organization Address City/[facility]/ZIP Co de Phone Number [facility] [place] [address] * (ABNORMAL) Sedimentation rate (06/03/2016 11:45 AM EDT) Sedimentation Rate Automated 41(H) 0 - 20 mm/hr [facility] Blood specimen (specimen) 06/03/2016 11:45 AM EDT 06/03/2016 12:04 PM EDT Narrative Resulting Agency Comment Spec In Lab Mario Alberto Escobedo MD HEMATOLOGY ORDERABLE S Performing Organization Address [facility]/ZIP Co de Phone Number [facility] [place] [address] * Lactate Dehydrogenase (06/03/2016 11:45 AM EDT) [facility] Lactate Dehydrogenase 164 110 - 220 unit/L [facility] Blood specimen (specimen) 06/03/2016 11:45 AM EDT 06/03/2016 12:11 PM EDT Narrative Resulting Agency Comment Spec In Lab Mario Alberto Escobedo MD CHEMISTRY ORDERABLES Performing Organization Address [facility] Co de Phone Number [facility] [place] [address] * Comprehensive metabolic panel (non-fasting) (06/03/2016 11:45 AM EDT) Glucose 90 65 - 199 mg/dL [facility] Comment:Diabetes: >=200 mg/d L plus symptoms Blood Urea Nitrogen 11 8 - 18 mg/dL [facility] Carbon Dioxide 25 22 - 31 mmol/L [facility] Anion Gap 14 5 - 15 mmol/L [facility] Calcium 9.2 8.5 - 10.5 mg/dL [facility] Protein, Total 7.0 6.1 - 8.0 gm/dL [facility] Albumin 4.0 3.2 - 5.2 gm/dL [facility] Aspartate Aminotransferase 17 0 - 30 unit/L [facility] Alanine Aminotransferase 9 0 - 30 unit/L [facility] Alkaline Phosphatase 81 40 - 104 unit/L [facility] Bilirubin, Total 0.4 0.2 - 1.3 mg/dL [facility] Bilirubin, Direct 0.1 0.0 - 0.3 mg/dL [facility] Est [...] the following links into your internet browser. [email or web address] Blood specimen (specimen) 06/03/2016 11:45 AM EDT 06/03/2016 12:11 PM EDT Narrative Resulting Agency Comment Spec In Lab Mario Alberto Escobedo MD CHEMISTRY ORDERABLES [facility] [place] [address] documented in this encounter Visit Diagnoses Diagnosis [...] Tillman, [id number] (Rate/Dose Verify - Provider: Joy Tillman RN) [...] Hernandez) documented in this encounter Care Teams Lamination Inspector Relationship Specialty Start Date End Date Deborah Quiroga APRN PCP - General Family Medicine 03/24/16 02/04/23 documented as of this encounter
--- OUTSIDE RECORDS SUMMARY | 2024-06-01 14:19 | XMS_ITS | Encounter Summary ---
Author Organization [facility] [place] [address] Care Team Providers Care Epidemiologist Name Role Phone Ashley Quirogan Sylvia ANURAG Primary Care Provider [phone] Encounter Details Date Type Department Care Team (Late st Contact Info) Description 06/09/2016 Orders Only Hematology [place] [phone] Nitesh Pina Jr., MD [facility] DR HEMATOLOGY [place] [address] Cyclical neutropenia Social History Tobacco Use Types [...] EST Hospital Encounter Outpatient [place] [address] Markel Borjas MD [facility] DR HEMATOLOGY [place] [address] 06/05/2024 2:00 PM EST - 06/05/2024 3:00 PM EST Surgery Outpatient [place] [address] Markel Borjas MD [facility] DR HEMATOLOGY [place] [address] (OSC MSURG) BONE MARROW BIOPSY AND ASPIRATION; DIAGNOSTIC (WRVU 1.44) 06/23/2024 2:00 PM EST Office Visit Hematology [place] [address] Markel Borjas MD [facility] DR HEMATOLOGY [place] [address] 11/02/2024 12:00 PM EDT Appointment [place] [phone] 11/02/2024 1:00 PM EDT Office Visit Rheumatology at [place] [phone] Magdalena Peralta MD [facility] DR [place] [address] 03/01/2025 4:15 PM EDT Office Visit Dermatology at [address] [place] [address] Marek Bonilla MD [address] [place] [address], [place] [address] Scheduled Procedures Name Priority Associated Diagnoses Date/Ti me (OSC MSURG) BONE MARROW BIOPSY AND ASPIRATION; DIAGNOSTIC (WRVU 1.44) Anemia, in pt with longstanding neutropenia 06/05/2024 2:00 PM EST documented as of this encounter Results * Immunophenotyping Flow Cytometry (06/09/2016 4:53 PM EST) Immunophenotyping Flow See Comment [facility] Comment: When completed by the Pathologist, the Flow Cytometry Report ([id number]) will display under the Pathology Results section within eD. Specimen of unknown material (specimen) 06/09/2016 4:53 PM EST 06/09/2016 5:00 PM EST Narrative Resulting Agency Comment Spec In Lab Nitesh Pina Jr., MD HEMATOLOGY ORDERABLE S [facility] [place] [address] documented in this encounter Visit Diagnoses Diagnosis Cyclical neutropenia Cyclic neutropenia documented in this encounter Care Teams Epidemiologist Relationship Specialty Start Date End Date Deborah Quiroga, ANURAG PCP - General Family Medicine 03/24/16 02/04/23 documented as of this encounter
--- OUTSIDE RECORDS SUMMARY | 2024-06-01 14:19 | XMS_ITS | Encounter Summary ---
Author Organization [facility] [place] [address] Care Team Providers Care User Interface Artist Name Role Phone Ashley Quirogan Sylvia ANURAG Primary Care Provider [phone] Reason for Visit * Reason Onset Date Comments Pre Procedure Call 06/18/2016 Encounter Details Date Type Department Care Team (Late st Contact Info) Description 06/18/2016 Telephone Hematology [place] [phone] Alexandrea Greenwood RN Pre Procedure Call Social [...] PM EST Hospital Encounter [place] [phone] Markel Borjas MD [facility] DR [place] [address] 06/05/2024 2:00 PM EST - 06/05/2024 3:00 PM EST Surgery Outpatient Surgery Center [place] [phone] Markel Borjas MD [facility] DR [place] [address] (OSC MSURG) BONE MARROW BIOPSY AND ASPIRATION; DIAGNOSTIC (WRVU 1.44) 06/23/2024 2:00 PM EST Office Visit [place] [address] Markel Borjas MD [facility] DR [place] [address] 11/02/2024 12:00 PM EDT Appointment Pulmonology at [place] [address] 11/02/2024 1:00 PM EDT Office Visit Rheumatology at [address] Magdalena Peralta MD [facility] [place] [address] 03/01/2025 4:15 PM EDT Office Visit Dermatology at [place] [address] [place] [address] Marek Bonilla MD [address], [place] [address] Scheduled Procedures Name Priority Associated Diagnoses Date/Ti me (OSC MSURG) BONE MARROW BIOPSY AND ASPIRATION; DIAGNOSTIC (WRVU 1.44) Anemia, in pt with longstanding neutropenia 06/05/2024 2:00 PM EST documented as of this encounter Visit Diagnoses Not on filedocumented in this encounter Care Teams User Interface Artist Relationship Specialty Start Date End Date Deborah Quiroga, GROUNDMAN PCP - General Family Medicine 03/24/16 02/04/23 documented as of this encounter
--- OUTSIDE RECORDS SUMMARY | 2024-06-01 14:19 | XMS_ITS | Encounter Summary ---
Author Organization [facility] [place] [address] Care Team Providers Care Weaver Wire Loom Name Role Phone Junaid Deborah Shields APRN Primary Care Provider [phone] Encounter Details Date Type Department Care Team (Latest Contact Info) Description 05/19/2016 11:00 AM EDT Clinical [place] [phone] Nonrheumatic aortic valve stenosis Social History Tobacco [...] PM EST Hospital Encounter [place]patient [place] [phone] Markel Borjas MD [facility] DR HEM[place] [address] 06/05/2024 2:00 PM EST - 06/05/2024 3:00 PM EST Surgery [place] [phone] Markel Borjas MD [facility] DR [place] [address] (OSC MSURG) BONE MARROW BIOPSY AND ASPIRATION; DIAGNOSTIC (WRVU 1.44) 06/23/2024 2:00 PM EST Office Visit Hematology [place] [address] Markel Borjas MD [facility] DR [place] [address] 11/02/2024 12:00 PM EDT Appointment [place] [address] 11/02/2024 1:00 PM EDT Office [place] [address] Magdalena Peralta MD [facility] [place] [address] 03/01/2025 4:15 PM EDT Office Visit Dermatology at [address] [phone] Marek Bonilla MD [address], [place] [address] Scheduled Procedures Name Priority Associated Diagnoses Date/Ti [...] (Bezet) 448 ms MUSE SYSTEM Calculated P [place] 37 degrees MUSE SYSTEM Calculated R [place] 31 degrees MUSE SYSTEM Calculated T [place] 25 degrees MUSE SYSTEM INTERPRETATION Normal sinus rhythm Normal ECG No previous ECGs available Confirmed by MD Becca, Deangelo ([id number]) on 05/19/2016 5:23:33 PM MUSE SYSTEM 05/19/2016 11:4 3 AM EDT 05/19/2016 5:23 PM EDT Alirio Esparza MD ECG ORDERABLES MUSE SYSTEM documented in this encounter Visit Diagnoses Diagnosis Nonrheumatic aortic valve stenosis Aortic valve disorders documented in this encounter Care Teams Weaver Wire Loom Relationship Specialty Start Date End Date Deborah Quiroga APRN PCP - General Family Medicine 03/24/16 02/04/23 documented as of this encounter
--- OUTSIDE RECORDS SUMMARY | 2024-06-01 14:19 | XMS_ITS | Encounter Summary ---
[place] [address] Care Team Providers Care Medicine Tech Name Role Phone Ashley Quirogan Cornelius ANURAG Primary Care Provider [phone] Encounter Details Date Type Department Care Team (Late st Contact Info) Description 03/24/2016 Notes Only [place] [phone] Alfa Lua Social History Tobacco Use Types [...] assessments completed: Wadsworth Score: 6/6 IADL: 7/7 Garment Presser Strength Trials: 18.4, 15.0, 16.8 (right hand dominant) 5 meter walk test in seconds x3: 4.98, 4.88, 4.45 KCCQol: 98% Alfa Lua documented in this encounter Plan of Treatment Upcoming Encounters Date Type Department Care Team (Late st Contact Info) Description 06/05/2024 2:00 PM EST Hospital Encounter Outpatient [place] [phone] Markel Borjas MD [facility] DR [place] [address] 06/05/2024 2:00 PM EST - 06/05/2024 3:00 PM EST Surgery Outpatient [place] [phone] Markel Borjas MD [facility] DR [place] [address] (OSC MSURG) BONE MARROW BIOPSY AND ASPIRATION; DIAGNOSTIC (WRVU 1.44) 06/23/2024 2:00 PM EST Office Visit Hematology and Oncology at [place] [phone] Markel Borjas MD [facility] DR [place] [address] 11/02/2024 12:00 PM EDT Appointment [place] [address] 11/02/2024 1:00 PM EDT Office Visit Rheumatology at [place] [address] Magdalena Peralta MD [facility] [place] [address] 03/01/2025 4:15 PM EDT Office Visit Dermatology at [place] [address] [place] [address] Marek Bonilla MD [address], [place] [address] Scheduled Procedures Name Priority Associated Diagnoses Date/Ti me (OSC MSURG) BONE MARROW BIOPSY AND ASPIRATION; DIAGNOSTIC (WRVU 1.44) Anemia, in pt with longstanding neutropenia 06/05/2024 2:00 PM EST documented as of this encounter Visit Diagnoses Not on filedocumented in this encounter Care Teams Medicine Tech Relationship Specialty Start Date End Date Deborah Quiroga, PHOTOVOLTAIC PANEL INSTALLER PCP - General Family Medicine 03/24/16 02/04/23 documented as of this encounter
--- OUTSIDE RECORDS SUMMARY | 2024-06-01 14:19 | XMS_ITS | Encounter Summary ---
Author Organization [facility] [place] [address] Care Team Providers Care Digital Program Manager Name Role Phone Ashley Quirogazac Shields APRN Primary Care Provider [phone] Reason for Visit * Consultation (Urgent) - Closed Specialty Diagnoses / Procedures Referred By Contac t Referred To Contact Cardiac Surgery Diagnoses aortic stenosis, consideration for valve replacement Antelmo Burrell MD [address] [place] [address] [place] [address] Alirio Esparza MD [facility] DR [place] [address] Referral ID Status Reason Start Date Expiration Date V isits Requested Visits Authorized [id number] Closed Connection Center 03/04/2016 03/04/2017 1 1 Encounter Details Date Type Department Care Team (Late st Contact Info) Description 03/24/2016 10:40 AM EDT Office [place] [phone] Alirio Esparza MD Aortic valve stenosis, unspecified [...] This is a patient of Antelmo Burrell [facility] Cardiology. Mrs. Thacker is being [...] 30 minute visit, 20 minutes were spent [id number] with the patient discussing aortic stenosis and valve replacement. documented in this encounter Plan of Treatment Upcoming Encounters Date Type Department Care Team (Late st Contact Info) Description 06/05/2024 2:00 PM [facility] Hospital Encounter [place] [address] Markel Borjas MD [facility] [place] [address] 06/05/2024 2:00 PM EST - 06/05/2024 3:00 PM EST Surgery Outpatient Surgery Center [place] [phone] Markel Borjas MD [facility] DR [place] [address] (OSC MSURG) BONE MARROW BIOPSY AND ASPIRATION; DIAGNOSTIC (WRVU 1.44) 06/23/2024 2:00 PM EST Office Visit Hematology and Oncology at [address] Markel Borjas MD [facility] DR [place] [address] 11/02/2024 12:00 PM EDT Appointment Pulmonology at [place] [address] 11/02/2024 1:00 PM EDT Office Visit Rheumatology at [address] Magdalena Peralta MD [facility] [place] [address] 03/01/2025 4:15 PM EDT Office Visit Dermatology at [place] [address] [facility] [place] [phone] Marek Bonilla MD [address], [place] [address] Scheduled Procedures Name Priority Associated Diagnoses Date/Ti me (OSC MSURG) BONE MARROW BIOPSY AND ASPIRATION; DIAGNOSTIC (WRVU 1.44) Anemia, in pt with longstanding neutropenia 06/05/2024 2:00 PM EST documented as of this encounter Visit Diagnoses Diagnosis Aortic valve stenosis, unspecified etiology documented in this encounter Care Teams Digital Program Manager Relationship Specialty Start Date End Date Deborah Quiroga APRN PCP - General Family Medicine 03/24/16 02/04/23 documented as of this encounter
--- OUTSIDE RECORDS SUMMARY | 2024-06-01 14:19 | XMS_ITS | Encounter Summary ---
[place] [address] Care Team Providers Care Excelsior Machine Feeder Name Role Phone Jerel Sofia Garcia APRN Primary Care Provider [phone] Encounter Details Date Type Department Care Team (Latest Contact Info) Description 11/12/2014 8:10 AM EDT - 11/12/2014 11:59 PM EDT Hospital [place] [phone] CLINIC, DR ABE Burrell, Antelmo Porter MD [facility] [place] [address] Discharge Disposition: Home Social History Tobacco Use [...] PM EST Hospital Encounter [place] [phone] Markel Borjas MD [facility] DR [place] [address] 06/05/2024 2:00 PM EST - 06/05/2024 3:00 PM EST Surgery [place] [address] Markel Borjas MD [facility] DR [place] [address] ([facility] BONE MARROW BIOPSY AND ASPIRATION; DIAGNOSTIC (WRVU 1.44) 06/23/2024 2:00 PM EST Office Visit Hematology [place] [phone] Markel Borjas MD [facility] DR [place] [address] 11/02/2024 12:00 PM EDT Appointment [place] [address] 11/02/2024 1:00 PM EDT Office [place] [address] Magdalena Peralta MD [facility] [place] [address] 03/01/2025 4:15 PM EDT Office Visit Dermatology at [address] [address] Marek Bonilla MD [address], [place] [address] Scheduled Procedures Name Priority Associated Diagnoses Date/Ti [...] mLs documented in this encounter Care Teams Excelsior Machine Feeder Relationship Specialty Start Date End Date Sofia Beltrán APRN [address] [place] [address] PCP - General 11/12/14 03/23/16 documented as of this encounter
--- OUTSIDE RECORDS SUMMARY | 2024-06-01 14:19 | XMS_ITS | Encounter Summary ---
Author Organization [facility] [place] [address] Care Team Providers Care Customs House Broker Name Role Phone Junaid, Deborah Shields APRN Primary Care Provider [phone] Encounter Details Date Type Department Care Team (Late st Contact Info) Description 05/19/2016 10:00 AM EDT Office [place] [phone] Alirio Esparza MD Nonrheumatic aortic valve stenosis [...] PM EST Hospital Encounter Outpatient [place] [address] Markel Borjas MD [facility] DR HEMATOLOGY [place] [address] 06/05/2024 2:00 PM EST - 06/05/2024 3:00 PM EST Surgery [place] [address] Markel Borjas MD [facility] DR HEMATOLOGY [place] [address] (OSC [facility]) BONE MARROW BIOPSY AND ASPIRATION; DIAGNOSTIC (WRVU 1.44) 06/23/2024 2:00 PM EST Office Visit [place]ology [place] [address] Markel Borjas MD [facility] HEMATOLOGY [place] [address] 11/02/2024 12:00 PM EDT [place]oint[place] [address] 11/02/2024 1:00 PM EDT Office [place] [phone] Magdalena Peralta MD [facility] [place] [address] 03/01/2025 4:15 PM EDT Office Visit Dermatology at [place] [address] [place] [phone] Marek Bonilla MD [address], [place] [address] Scheduled Procedures Name Priority Associated Diagnoses Date/Ti [...] (Bezet) 448 ms MUSE SYSTEM Calculated P Paterson 37 degrees MUSE SYSTEM Calculated R Paterson 31 degrees MUSE SYSTEM Calculated T [place] 25 degrees MUSE SYSTEM INTERPRETATION Normal sinus rhythm Normal ECG No previous ECGs available Confirmed by MD Becca, Deangelo ([id number]) on 05/19/2016 5:23:33 PM MUSE SYSTEM 05/19/2016 11:4 3 AM EDT 05/19/2016 5:23 PM EDT Alirio Esparza MD ECG ORDERABLES MUSE SYSTEM * Basic Metabolic Panel (non-fasting) (05/19/2016 11:32 AM EDT) Pathologist [facility] Glucose 86 65 - 199 mg/dL [facility] Comment:Diabetes: >=200 mg/d L plus symptoms Blood Urea Nitrogen 13 8 - 18 mg/dL [facility] Creatinine 0.95 0.70 - 1.20 mg/dL [facility] Comment: Please note that the pediatric reference intervals supplied above were not validated at [facility]. Results from pediatric patients should be interpreted [...] Carbon Dioxide 27 22 - 31 mmol/L [facility] Anion Gap 12 5 [...] the following links into your internet browser. [email or web address] Blood specimen (specimen) 05/19/2016 11:32 AM EDT 05/19/2016 11:41 AM EDT Narrative Resulting Agency Comment Spec In Lab Alirio Esparza MD CHEMISTRY ORDERABLE S Performing Organization Address City/State/[facility] Co de Phone Number [facility] [place] [address] documented in this encounter Visit Diagnoses Diagnosis Nonrheumatic aortic valve stenosis Aortic valve disorders Nonrheumatic aortic valve stenosis Aortic valve disorders documented in this encounter Care Teams Customs House Broker Relationship Specialty Start Date End Date Deborah Quiroga APRN PCP - General Family Medicine 03/24/16 02/04/23 documented as of this encounter
--- OUTSIDE RECORDS SUMMARY | 2024-06-01 14:19 | XMS_ITS | Encounter Summary ---
Author Organization [facility] [place] [address] Care Team Providers Care Learning Support Assistant Name Role Phone Deborah Quiroga ANURAG Primary Care Provider [phone] Encounter Details Date Type Department Care Team (Late st Contact Info) Description 05/22/2016 Orders Only Cardiology at [address] [phone] Chele Randolph PA [facility] [place] [address] Aortic valve stenosis, unspecified etiology Social History [...] EST Hospital Encounter Outpatient [place] [phone] Markel Borjas MD [facility] DR HEMATOLOGY [place] [address] 06/05/2024 2:00 PM EST - 06/05/2024 3:00 PM EST Surgery Outpatient Surgery Center [facility] [place] [address] Markel Borjas MD [facility] DR [place] [address] ([facility]C [facility]) BONE MARROW BIOPSY AND ASPIRATION; DIAGNOSTIC (WRVU 1.44) 06/23/2024 2:00 PM EST Office Visit Hematology and Oncology at [place] [phone] Markel Borjas MD [facility] DR [place]EM[place] [address] 11/02/2024 12:00 PM EDT Appointment [place] [address] 11/02/2024 1:00 PM EDT Office Visit Rheumatology at [place] [phone] Magdalena Peralta MD [facility] [place] [address] 03/01/2025 4:15 PM EDT Office Visit Dermatology at [address] [place] [phone] Marek Bonilla MD [address], [place] [address] Scheduled Procedures Name Priority Associated [...] Modality Other Narrative 06/03/2016 10:13 AM EDT ?[facility] ? Cardiac Catheterization/Intervention Report ? Patient Name: Kirstie, Purnima M. ? Procedure Date: 06/03/2016 ? A #: [id number] ? Primary Physician: Nitesh Escobedo ? Case #: [id number] ? File Name: [id number] ? Catheterization Order Number: [id number] ? [facility] ? Final Report [place], [place] ? Patient Name: ? Purnima MagalieKaylie Thacker ? ID#: ?[id number] ? : ?1955 ? Procedure Date: ? June 03, 2016 ? Case #: ? [id number] ? Room: ? 1 ? Case Physician: [...] no symptom, no angina (w/i 14 days). Gregory ?Cardiovascular Society angina class was 0. This [...] Procedure Note Nitesh Escobedo MD - 09/21/2016 [facility] Cardiac Catheterization/Intervention Report Patient Name: Pasquale Thackerouise MagalieKaylie Procedure Date: 06/03/2016 A #: [id number] Primary Physician: iNtesh Escobedo Case #: [id number] File Name: [id number] Catheterization Order Number: [id number] [facility] FinalReport [place], [place] Patient Name: Purnima Bell Kirstie ID#:[id number] :1955 Procedure Date: June 03, 2016 Case [...] with: no symptom, no angina (w/i 14 days).Gregory Cardiovascular Society angina class was 0. This [...] etiology documented in this encounter Care Teams Learning Support Assistant Relationship Specialty Start Date End Date Deborah Quiroga, KELLY MACHINE OPERATOR PCP - General Family Medicine 03/24/16 02/04/23 documented as of this encounter
--- OUTSIDE RECORDS SUMMARY | 2024-06-01 14:19 | XMS_ITS | Encounter Summary ---
Author Organization [facility] [place] [address] Care Team Providers Care Small Equipment Operator Name Role Phone Mitchell Wilkes MD Primary Care Provider [phone] Encounter Details Date Type Department Care Team (Late st Contact Info) Description 01/19/2014 Orders Only Cardiology at [address] [address] Chele Randolph PA [facility] [place] [address] Cardiomyopathy (Primary Dx) Social History [...] st Contact Info) Description 06/05/2024 2:00 PM [facility] Hospital Encounter Outpatient [place] [address] Markel Borjas MD [facility] DR HEMATOLOGY AND ONCOLOGY [place], [place] [address] 06/05/2024 2:00 PM EST - 06/05/2024 3:00 PM EST Surgery Outpatient [place] [address] Markel Borjas MD [facility] DR [place] [address] ([facility]C [facility]) BONE MARROW BIOPSY AND ASPIRATION; DIAGNOSTIC (WRVU 1.44) 06/23/2024 2:00 PM EST Office Visit Hematology [place] [address] Markel Borjas MD [facility] DR [place] [address] 11/02/2024 12:00 PM EDT Appointment Pulmonology at [address] 11/02/2024 1:00 PM EDT Office Visit Rheumatology at [place] [phone] Magdalena Peralta MD [facility] [place] [address] 03/01/2025 4:15 PM EDT Office Visit Dermatology at [address] [place] [phone] Marek Bonilla MD [address], [place] [address] Scheduled Procedures Name Priority Associated Diagnoses Date/Ti [...] cardiomyopathies documented in this encounter Care Teams Small Equipment Operator Relationship Specialty Start Date End Date Mitchell Wilkes MD [facility] PCP - General 06/24/10 01/19/14 documented as of this encounter
--- OUTSIDE RECORDS SUMMARY | 2024-06-01 14:19 | XMS_ITS | Encounter Summary ---
Author Organization [facility] Address [facility] [place] [address] Care Team Providers Care Wood Gouger Name Role Phone EitanMagnusDanni ANURAG Primary Care Provider Encounter Details Date Type Department Care Team (Latest Contact Info) Description 01/23/2014 7:45 AM EDT - 01/23/2014 5:50 PM EDT Hospital Encounter [place] [address] Alan Jacobson MD [facility] [place] [address] Cardiomyopathy; SOB (shortness of breath) Discharge Disposition: [...] by your doctor, do not take any bbdq-vpr-yeupwzj medicines or herbal preparations without first discussing this with your doctor or pharmacist. There is the possibility of side effect and interactions when these are combined. Follow up Care Who to Call with Questions or Problems If there are any questions or problems that you think might be related to your cardiac cath or angioplasty, contact the high lift driver performance solutions specialist by calling [facility] at . documented in this [...] PM EST Hospital Encounter Outpatient [place] [address] Markel Borjas MD [facility] DR HEMATOLOGY [place] [address] 06/05/2024 2:00 PM EST - 06/05/2024 3:00 PM EST Surgery Outpatient [place] [phone] Markel Borjas MD [facility] DR HEMATOLOGY [place] [address] ([facility]C [facility]) BONE MARROW BIOPSY AND ASPIRATION; DIAGNOSTIC (WRVU 1.44) 06/23/2024 2:00 PM EST Office Visit [place] [address] Markel Borjas MD [facility] DR HEMATOLOGY [place] [address] 11/02/2024 12:00 PM EDT Appointment [place] [address] 11/02/2024 1:00 PM EDT Office [place] [address] Magdalena Peralta MD [facility] [place] [address] 03/01/2025 4:15 PM EDT Office Visit Dermatology at [address] [phone] Marek Bonilla MD [address], TODD Katherine DERMATOLOGY [place], [place] [address] Scheduled Procedures Name Priority Associated Diagnoses Date/Ti [...] ANDREW ECHOLS M ?(Age): 1955(58) Med Rec#: ?[id number] ? Sex: ?F ? Site Loc: ?[facility] ? Ht / Wt: ??158(cm)/93(kg) Pt. Loc: ? Adult Floor ?BSA: ?2.02 Study Date: ?01/23/2014 ? Pt. Type: Inpatient Tape: ? Referring: Lee Kincaid ([id number]) Referring: ANNALISA [place] Instructor: Miguel Beverly Diagnosis:CPT Code(s): ??Echo Full (00076), ??Spectral Doppler (94091), Color Doppler (72300), Indication(s): ??Aortic stenosis Rhythm: Sinus HR ?BP [...] ? Mid-Inferior ?Hypokinetic ? Mid-Inferoseptal ?Hypokinetic ? [place]-Septal ? Hypokinetic ? [place]-Anterior ? Hypokinetic ? [place]-Lateral ?Hypokinetic ? [place]-Inferior ? Hypokinetic ? [place]-Tip ?Hypokinetic ? Chambers ?Value ?Units (Range) ? [...] Hospital Cardiac Ultrasound Laboratory Procedure Note Lee Kincadi MD - 01/23/2014 Procedure: Transthoracic Echocardiogram Patient: ANDREW Mejias (Age): 1955(58) Med Rec#: [id number] Sex: F Site Loc: [facility] Ht / Wt: 158(cm)/93(kg) Pt. Loc: Adult Floor BSA: 2.02 Study Date: 01/23/2014 Pt. Type: Inpatient Tape: Referring: Lee Kincaid ([id number]) Referring: ANNALISA [place] Instructor: Miguel Beverly Diagnosis:CPT Code(s): Echo Full (07681), Spectral Doppler (47488), Color Doppler (36082), Indication(s): Aortic stenosis Rhythm: Sinus HR BP [...] Hypokinetic Mid-Posterolateral Hypokinetic Mid-Inferior Hypokinetic Mid-Inferoseptal Hypokinetic [place]-Septal Hypokinetic [place]-Anterior Hypokinetic [place]-Lateral Hypokinetic [place]-Inferior Hypokinetic [place]-Tip Hypokinetic Chambers Value Units (Range) IVSd 2D [...] Intravenous, EVERY 12 HOURS, First dose on e 01/23/14 at 0845, Until Discontinued, Cath (Day of Procedure), Routine 0845 (Due)1218 (Give n - Provider: Nitesh Stern RN) Continuous Medication Order 01/21/2014 01/22/2014 01/23/2014 sodium chloride 0.9% infusion (CANCELED) 200 mL/hr, Intravenous, CONTINUOUS, Starting on Wed01/23/14 at 0845, Until Wed01/23/14 at 1324, Cath (Day of Procedure) 0859 (New Bag - Prov ider: Katelynn Parr, RN) sodium chloride 0.9% infusion (CANCELED) 100 [...] Routine 1158 (Given - Provid er: Nitesh Stern, RN)1224 (Given - Provider: Nitesh Stern RN) documented in this encounter Care Teams Wood Gouger Relationship Specialty Start Date End Date Danni Laird APRN [address] [place] [address] PCP - General 01/23/14 11/11/14 documented as of this encounter
--- OUTSIDE RECORDS SUMMARY | 2024-06-01 14:19 | XMS_ITS | Encounter Summary ---
Author Organization [facility] [place] [address] Care Team Providers Care Registered Route Associate Name Role Phone Danni Laird APRN Primary Care Provider [phone] Encounter Details Date Type Department Care Team (Late st Contact Info) Description 01/23/2014 Orders Only Cardiology at [address] [phone] Lee Kincaid MD [facility] CARDIOLOGY [place], [place] [address] SOB (shortness of breath) (Primary Dx) Social [...] PM EST Hospital Encounter [place] [address] Markel Borjas MD [facility] HEMATOLOGY AND ONCOLOGY [place], [place] [address] 06/05/2024 2:00 PM EST - 06/05/2024 3:00 PM EST Surgery [place] [address] Markel Borjas MD [facility] DR HEMATOLOGY [place] [address] ([facility]C [facility]) BONE MARROW BIOPSY AND ASPIRATION; DIAGNOSTIC (WRVU 1.44) 06/23/2024 2:00 PM EST Office Visit Hematology [place] [address] Markel Borjas MD [facility] DR HEMATOLOGY [place] [address] 11/02/2024 12:00 PM EDT Appointment [place] [address] 11/02/2024 1:00 PM EDT Office [place] [phone] Magdalena Peralta MD [facility] [place] [address] 03/01/2025 4:15 PM EDT Office Visit Dermatology at [address] [place] [address] Marek Bonilla MD [address] [facility], [place] [address] Scheduled Procedures Name Priority Associated Diagnoses Date/Ti me (OSC MS[facility]) BONE MARROW BIOPSY AND ASPIRATION; DIAGNOSTIC (WRVU 1.44) Anemia, in pt with longstanding neutropenia 06/05/2024 2:00 PM EST documented as of this encounter Results * Echocardiogram Transthoracic(Leb) (01/23/2014 3:17 PM EDT) EF 50 [facility] [employer] SYSTEM Anatomical Region Laterality Modality Other 01/23/2014 Narrative 01/23/2014 4:35 PM EDT Procedure: ? Transthoracic Echocardiogram Patient: ? ANDREW Mejias ?(Age): 1955(58) Med Rec#: ?[id number] ? Sex: ?F ? Site Loc: ?[facility] ? Ht / Wt: ??158(cm)/93(kg) Pt. Loc: ? Adult Floor ?BSA: ?2.02 Study Date: ?01/23/2014 ? Pt. Type: Inpatient Tape: ? Referring: Lee Kincaid ([id number]) Referring: ANNALISA Clinical Counselor: Miguel Beverly Diagnosis:CPT Code(s): ??Echo Full (01543), ??Spectral Doppler (97392), Color Doppler (72493), Indication(s): ??Aortic stenosis Rhythm: Sinus HR ?BP [...] ? Mid-Inferior ?Hypokinetic ? Mid-Inferoseptal ?Hypokinetic ? [place]-Septal ? Hypokinetic ? [place]-Anterior ? Hypokinetic ? [place]-Lateral ?Hypokinetic ? [place]-Inferior ? Hypokinetic ? [place]-Tip ?Hypokinetic ? Chambers ?Value ?Units (Range) ? [...] grad M ? 15 ? mmHg ? GEVOANNA(wero) ?1.1 ?cm2 (2 to 4) ? DOI [...] report has been electronically signed by: Lee P. Kincaid, MD ? 01/23/2014 16:34:37 Images reviewed and interpretation verified [facility] Cardiac Ultrasound Laboratory Procedure Note Lee Kincaid MD - 01/23/2014 Procedure: Transthoracic Echocardiogram Patient: ANDREW Mejias (Age): 1955(58) Med Rec#: [id number] Sex: F Site Loc: [facility] Ht / Wt: 158(cm)/93(kg) Pt. Loc: Adult Floor BSA: 2.02 Study Date: 01/23/2014 Pt. Type: Inpatient Tape: Referring: Lee Kincaid ([id number]) Referring: ANNALISA Clinical Counselor: Miguel Beverly Diagnosis:CPT Code(s): Echo Full (18466), Spectral Doppler (86452), Color Doppler (55305), Indication(s): Aortic stenosis Rhythm: Sinus HR BP [...] Hypokinetic Mid-Posterolateral Hypokinetic Mid-Inferior Hypokinetic Mid-Inferoseptal Hypokinetic [place]-Septal Hypokinetic [place]-Anterior Hypokinetic [place]-Lateral Hypokinetic [place]-Inferior Hypokinetic [place]-Tip Hypokinetic Chambers Value Units (Range) IVSd 2D [...] breath documented in this encounter Care Teams Registered Route Associate Relationship Specialty Start Date End Date Danni Laird APRN [address] [place] [address] PCP - General 01/23/14 11/11/14 documented as of this encounter
--- OUTSIDE RECORDS SUMMARY | 2024-06-01 14:19 | XMS_ITS | Encounter Summary ---
Author Organization [facility] [place] [address] Care Team Providers Care Roofer Applicator Name Role Phone Eitan Danni ANURAG Primary Care Provider [phone] Encounter Details Date Type Department Care Team (Late st Contact Info) Description 01/23/2014 9:25 AM EDT - 01/23/2014 10:25 AM EDT Surgery [place] [address] Alan Jacobson MD [facility] [place] [address] CARDIAC CATHETERIZATION Social History Tobacco Use Types [...] by your doctor, do not take any drxp-qxi-yzpmepx medicines or herbal preparations without first discussing this with your doctor or pharmacist. There is the possibility of side effect and interactions when these are combined. Follow up Care Who to Call with Questions or Problems If there are any questions or problems that you think might be related to your cardiac cath or angioplasty, contact the curb setter helper palaeontologist by calling [facility] at . documented in this encounter [...] PM EST Hospital Encounter [place]patient [place] [address] Markel Borjas MD [facility] DR HEMATOLOGY [place] [address] 06/05/2024 2:00 PM EST - 06/05/2024 3:00 PM EST Surgery [place] [phone] Markel Borjas MD [facility] DR HEMATOLOGY [place] [address] ([facility]C MSURG) BONE MARROW BIOPSY AND ASPIRATION; DIAGNOSTIC (WRVU 1.44) 06/23/2024 2:00 PM EST Office Visit [place]ology [place] [address] Markel Borjas MD [facility] DR HEMATOLOGY [place] [address] 11/02/2024 12:00 PM EDT [place]oint[place] [address] 11/02/2024 1:00 PM EDT Office [place] [address] Magdalena Peralta MD [facility] [place] [address] 03/01/2025 4:15 PM EDT Office Visit Dermatology at [address] [phone] Marek Bonilla MD [address], [place] [address] Scheduled Procedures Name Priority Associated Diagnoses Date/Ti [...] ANDREW ECHOLS M ?(Age): 1955(58) Med Rec#: ?[id number] ? Sex: ?F ? Site Loc: ?[facility] ? Ht / Wt: ??158(cm)/93(kg) Pt. Loc: ? Adult Floor ?BSA: ?2.02 Study Date: ?01/23/2014 ? Pt. Type: Inpatient Tape: ? Referring: Lee Kincaid ([id number]) Referring: ANNALISA Condenser Tester: Miguel Beverly Diagnosis:CPT Code(s): ??Echo Full (88368), ??Spectral Doppler (61423), Color Doppler (71724), Indication(s): ??Aortic stenosis Rhythm: Sinus HR ?BP [...] ? Mid-Inferior ?Hypokinetic ? Mid-Inferoseptal ?Hypokinetic ? [place]-Septal ? Hypokinetic ? [place]-Anterior ? Hypokinetic ? [place]-Lateral ?Hypokinetic ? [place]-Inferior ? Hypokinetic ? [place]-Tip ?Hypokinetic ? Chambers ?Value ?Units (Range) ? [...] grad M ? 15 ? mmHg ? GEOVANNA(ewro) ?1.1 ?cm2 (2 to 4) ? DOI [...] 16:34:37 Images reviewed and interpretation verified [facility] Cardiac Ultrasound Laboratory Procedure Note Lee Kincaid MD - 01/23/2014 Procedure: Transthoracic Echocardiogram Patient: ANDREW Mejias (Age): 1955(58) Med Rec#: [id number] Sex: F Site Loc: [facility] Ht / Wt: 158(cm)/93(kg) Pt. Loc: Adult Floor BSA: 2.02 Study Date: 01/23/2014 Pt. Type: Inpatient Tape: Referring: Lee Kincaid ([id number]) Referring: ANNALISA Condenser Tester: Miguel Beverly Diagnosis:CPT Code(s): Echo Full (15493), Spectral Doppler (51657), Color Doppler (09181), Indication(s): Aortic stenosis Rhythm: Sinus HR BP [...] Hypokinetic Mid-Posterolateral Hypokinetic Mid-Inferior Hypokinetic Mid-Inferoseptal Hypokinetic [place]-Septal Hypokinetic [place]-Anterior Hypokinetic [place]-Lateral Hypokinetic [place]-Inferior Hypokinetic [place]-Tip Hypokinetic Chambers Value Units (Range) IVSd 2D [...] 16:34:37 Images reviewed and interpretation verified [facility] Cardiac Ultrasound Laboratory Lee Kincaid MD [...] RN) documented in this encounter Care Teams Roofer Applicator Relationship Specialty Start Date End Date Danni Laird APRN [address] [place] [address] PCP - General 01/23/14 11/11/14 documented as of this encounter
--- OUTSIDE RECORDS SUMMARY | 2024-06-01 14:19 | XMS_ITS | Encounter Summary ---
[place] [address] Care Team Providers Care Mechanical Engineering Intern Name Role Phone Mitchell Wilkes MD Primary Care Provider [phone] Reason for Visit * Reason Onset Date Comments Other 01/18/2014 Encounter Details Date Type Department Care Team (Late st Contact Info) Description 01/18/2014 Telephone Cardiology at [address] [phone] Jesusita Garces Other Social History Tobacco Use [...] PM EST Hospital Encounter [facility] [place] [address] Markel Borjas MD [facility] DR [place] [address] 06/05/2024 2:00 PM EST - 06/05/2024 3:00 PM EST Surgery Outpatient [facility] [place] [phone] Markel Borjas MD [facility] DR [place] [address] (OSC MSURG) BONE MARROW BIOPSY AND ASPIRATION; DIAGNOSTIC (WRVU 1.44) 06/23/2024 2:00 PM EST Office Visit Hematology and Oncology at [address] Markel Borjas MD [facility] DR [place] [address] 11/02/2024 12:00 PM EDT Appointment Pulmonology at [place] [address] 11/02/2024 1:00 PM EDT Office Visit Rheumatology at [place] [address] Magdalena Peralta MD [facility] [place] [address] 03/01/2025 4:15 PM EDT Office Visit Dermatology at [address] [place] [address] Marek Bonilla MD [address], [place] [address] Scheduled Procedures Name Priority Associated Diagnoses Date/Ti me (OSC MSURG) BONE MARROW BIOPSY AND ASPIRATION; DIAGNOSTIC (WRVU 1.44) Anemia, in pt with longstanding neutropenia 06/05/2024 2:00 PM EST documented as of this encounter Visit Diagnoses Not on filedocumented in this encounter Care Teams Mechanical Engineering Intern Relationship Specialty Start Date End Date Mitchell Wilkes MD [facility] PCP - General 06/24/10 01/19/14 documented as of this encounter
--- OUTSIDE RECORDS SUMMARY | 2024-06-01 14:19 | XMS_ITS | Encounter Summary ---
Author Organization [facility] Address [facility] [place] [address] Care Team Providers Care Character Artist Name Role Phone Deborah Quiroga APRN Primary Care Provider [phone] Encounter Details Date Type Department Care Team (Latest Contact Info) Description 05/19/2016 11:52 AM EDT - 05/19/2016 11:59 PM EDT Hospital Encounter XRay at [address] [place] [address] Alirio Esparza MD Nonrheumatic aortic valve stenosis [...] PM EST Hospital Encounter Outpatient [place] [phone] Markel Borjas MD [facility] DR HEMATOLOGY [place] [address] 06/05/2024 2:00 PM EST - 06/05/2024 3:00 PM EST Surgery Outpatient [place] [phone] Markel Borjas MD [facility] DR HEMATOLOGY [place] [address] (OSC MSURG) BONE MARROW BIOPSY AND ASPIRATION; DIAGNOSTIC (WRVU 1.44) 06/23/2024 2:00 PM EST Office Visit [place]ematology [place] [phone] Markel Borjas MD [facility] DR HEMATOLOGY [place] [address] 11/02/2024 12:00 PM EDT [place]oint[place] [phone] 11/02/2024 1:00 PM EDT Office Visit Rheumatology at [place] [phone] Magdalena Peralta MD [facility] [place] [address] 03/01/2025 4:15 PM EDT Office Visit Dermatology at [place] [address] [place] [phone] Marek Bonilla MD [address], [place] [address] Scheduled Procedures Name Priority Associated Diagnoses Date/Ti [...] seen. IMPRESSION No active cardiopulmonary pathology identified. Ailrio Esparza MD IMG DX ORDERABLES documented in this encounter Visit Diagnoses Diagnosis Nonrheumatic aortic valve stenosis Aortic valve disorders documented in this encounter Care Teams Character Artist Relationship Specialty Start Date End Date Deborah Quiroga, ARCHITECT MARINE PCP - General Family Medicine 03/24/16 02/04/23 documented as of this encounter
--- OUTSIDE RECORDS SUMMARY | 2024-06-01 14:19 | XMS_ITS | Encounter Summary ---
Author Organization [facility] Address [facility] [place] [address] Care Team Providers Care Agricultural Chemist Name Role Phone Deborah Quiroga APRN Primary Care Provider [phone] Reason for Visit * Reason Comments Schedule Office Case * Consultation (Routine) - Closed Specialty Diagnoses / Procedures Referred By Contac t Referred To Contact Hematology and Oncology Diagnoses Leukopenia Neutropenia LEUKOPENIA W/NEUTROPENIA Procedures TC PEGFILGRASTIM, 6MG, INJECTION LEUKOPENIA W/NEUTROPENIA Alirio Esparza MD [facility] [place] [address] Mario Alberto Ramos Jr., MD [facility] DR [place] [address] Referral ID Status Reason Start Date Expiration Date V isits Requested Visits Authorized [id number] Closed Consult, Test & Treat 07/17/2016 07/17/2017 1 1 Encounter Details Date Type Department Care Team (Late st Contact Info) Description 06/09/2016 3:00 PM EST Office Visit [place]ematology [place] [address] Mario Alberto Ramos Jr., MD [facility] [place] [address] Cyclical neutropenia Social History Tobacco Use Types [...] 06/09/2016 3:00 PM EST [facility] [...] Unknown See Comment Flow Cytometry Report Unknown [id number] ... HematoPathology: Flow Cytometry DIAGNOSIS 1. No [...] PM EST Hospital Encounter [place]patient [place] [phone] Markel Borjas MD [facility] DR [place] [address] 06/05/2024 2:00 PM EST - 06/05/2024 3:00 PM EST Surgery Outpatient Surgery [facility] [place] [phone] Markel Borjas MD [facility] DR [place] [address] (OSC MSURG) BONE MARROW BIOPSY AND ASPIRATION; DIAGNOSTIC (WRVU 1.44) 06/23/2024 2:00 PM EST Office Visit [place] [address] Markel Borjas MD [facility] DR [place] [address] 11/02/2024 12:00 PM EDT Appointment Pulmonology at [place] [address] 11/02/2024 1:00 PM EDT Office Visit Rheumatology at [address] Magdalena Peralta MD [facility] [place] [address] 03/01/2025 4:15 PM EDT Office Visit Dermatology at [place] [address] [place] [address] Marek Bonilla MD [address], [place] [address] Scheduled Procedures Name Priority Associated [...] (06/09/2016 4:53 PM EST) Flow Cytometry Report [id number] ?Location: 3K The signing pathologist has (i) examined the relevant preparation(s) for the specimen(s) and (ii) rendered or confirmed the diagnosis(es). . ?Flow Cytometry DIAGNOSIS 1. ??No increased or abnormal immunophenotype T/NK/LGL or monoclonal B-cell ?? populations identified. 2. No increased blast population present (see Discussion). Electronically signed by: ??Andreina Baron MD Verified: ??06/10/2016 ?Hematopathologist DISCUSSION The majority of [...] by the Clinical Flow Cytometry Laboratory at [facility]. It has not been cleared [...] high complexity clinical laboratory testing. SPECIMEN PROCESSING [id number] Cells for immunophenotypic analysis were derived from [...] PATHOLOGY/CYTOLOGY O RDERABLES [facility] [place] [address] * Scan, Peripheral Blood (06/09/2016 4:53 PM EST) Pathologist [facility] Plat estimate Normal [facility] RBC Morphology Normal [facility] Blood specimen (specimen) 06/09/2016 4:53 PM EST 06/09/2016 5:00 PM EST Narrative Resulting Agency Comment Spec In Lab Mario Alberto Ramos Jr., MD HEMATOLOGY ORDERABLE S Performing Organization Address [facility] [place] [address] * (ABNORMAL) Differential, Automated (06/09/2016 4:53 PM EST) [facility] Neutrophil % 27.7 % [facility] Neutrophil Absolute 0.48(Crit ical) 1.70 - 6.10 x10(3)/mc L [facility] Comment: Matches Previous Results.. This result has been called to NOT CALLED by Jesusita Argueta on 06 09 2016 at 1817, and has not been read back. MATCHES PREVIOUS RESULTS Lymph % 57.2 % [facility] Lymphocytes Abs 1.0 0.9 - 3.2 x10(3)/mc L [facility] Monocyte % 13.3 % [facility] Monocyte Abs 0.2(L) 0.3 - 0.9 x10(3)/mc L [facility] Eos % 0.6 % [facility] Eosinophils Abs 0.0 0.0 - 0.4 x10(3)/mc L [facility] Basophil % 1.2 % [facility] Alberto Ramos Jr., MD HEMATOLOGY ORDERABLE S [facility] [place] [address] * (ABNORMAL) Hemogram (06/09/2016 4:53 PM EST) [...] [facility] NRBC% auto 0.0 % [facility] NRBC Absolute 0.000 0.000 - 0.000 x10(3)/mc L [facility] Blood specimen (specimen) 06/09/2016 4:53 PM EST 06/09/2016 5:00 PM EST Narrative Resulting Agency Comment Spec In Lab Mario Alberto Ramos Jr., MD HEMATOLOGY ORDERABLE S Performing Organization Address City/[facility]/ZIP Co de Phone Number [facility] [place] [address] * Immunophenotyping Flow Cytometry (06/09/2016 4:53 PM EST) Immunophenotyping Flow See Comment [facility] Comment: When completed by the Pathologist, the Flow Cytometry Report ([id number]) will display under the Pathology Results section within [facility]. Specimen of unknown material (specimen) 06/09/2016 4:53 PM EST 06/09/2016 5:00 PM EST Narrative Resulting Agency Comment Spec In Lab Mario Alberto Ramos Jr., MD HEMATOLOGY ORDERABLE S Performing Organization Address City/[facility]/ZIP Co de Phone Number [facility] [place] [address] documented in this encounter Visit Diagnoses Diagnosis Cyclical neutropenia Cyclic neutropenia documented in this encounter Care Teams Agricultural Chemist Relationship Specialty Start Date End Date Deborah Quiroga APRN PCP - General Family Medicine 03/24/16 02/04/23 documented as of this encounter
--- OUTSIDE RECORDS SUMMARY | 2024-06-01 14:19 | XMS_ITS | Encounter Summary ---
Author Organization [facility] [place] [address] Care Team Providers Care Stress Analyst Name Role Phone EitanDanni ANURAG Primary Care Provider [phone] Encounter Details Date Type Department Care Team (Late st Contact Info) Description 01/22/2014 Telephone Cardiology at [address] [phone] Cynthia Arrington LPN Social History Tobacco Use [...] LPN - 01/23/2014 2:39 PM EDT This grant writer did not receive a call back [...] PM EST Hospital Encounter [place] [phone] Markel Borjas MD [facility] DR [place] [address] 06/05/2024 2:00 PM EST - 06/05/2024 3:00 PM EST Surgery [place] [phone] Markel Borjas MD [facility] [place] [address] (OSC MSURG) BONE MARROW BIOPSY AND ASPIRATION; DIAGNOSTIC (WRVU 1.44) 06/23/2024 2:00 PM EST Office Visit Hematology and Oncology at [place] [phone] Markel Borjas MD [facility] [address] [place] [address] 11/02/2024 12:00 PM EDT Appointment Pulmonology at [place] [phone] 11/02/2024 1:00 PM EDT Office Visit Rheumatology at [place] [phone] Magdalena Peralta MD [facility] [place] [address] 03/01/2025 4:15 PM EDT Office Visit Dermatology at [place] [address] [place] [phone] Marek Bonilla MD [address], [place] [address] Scheduled Procedures Name Priority Associated Diagnoses Date/Ti me (OSC MSURG) BONE MARROW BIOPSY AND ASPIRATION; DIAGNOSTIC (WRVU 1.44) Anemia, in pt with longstanding neutropenia 06/05/2024 2:00 PM EST documented as of this encounter Visit Diagnoses Not on filedocumented in this encounter Care Teams Stress Analyst Relationship Specialty Start Date End Date Danni Laird [place] [address] PCP - General 01/23/14 11/11/14 documented as of this encounter
== END 2024-06-01 23:59 | disposition home or self-care (01) ==
LOC: CR 14:09
PROVIDERS: PCP Family Medicine; Visit Provider Internal Medicine Cardiovascular Disease
DX: R69 Illness, unspecified (principal)

== ENCOUNTER 2024-06-27 15:14 | Outpatient (RCR) | payer SELFPAY ==
[2024-06-02 00:16] VITALS: BP 115/53; PULSE 83
--- OUTSIDE RECORDS SUMMARY | 2024-06-06 13:58 | XMS_ITS | Encounter Summary ---
Author Organization [facility] Address [address] [place] [address] Care Team Providers Care Medical Nurse Name Role Phone Ashley Chavez Primary Care Provider [phone] Encounter Details Date Type Department Care Team (Late st Contact Info) Description 03/22/2024 Lab Requisition [facility] Pathology & Laboratory Medicine - [address] [address] Consuelo Guerrero, DO [address] [place], [place] [address] Diaphragmatic hernia without obstruction or gangrene; Anemia, [...] explore management options, if applicable. 03/24/2024 10:36 [facility] Final Diagnosis A. JEJUNUM, [...] - Deeper sections x3 examined. 03/24/2024 10:36 [facility] Attestation There was significant resident/fellow involvement in the diagnostic evaluation of this case. By the signature below, the attending physician certifies that they have personally conducted a gross and/or microscopic examination of the described specimens and rendered or confirmed the above diagnosis. 03/24/2024 10:36 [facility] at 1036 Clinical History Anemia, hiatal hernia, 38 cm aguayo diverticulosis 03/24/2024 10:36 [facility] Gross Description A. Received [...] Luis Torres 03/22/2024 9:36 03/24/2024 10:36 EDT [facility] Resident/Estuardo w: Luis Felipe Bragg DO 03/24/2024 10:36 T [facility] Performing Lab [facility] 10:36 T [facility] Scanned Images 03/24/2024 10:36 T [facility] Tissue POLYP OF [...] 8:19 EDT Consuelo Guerrero DO PATHOLOGY ORDERABLES [facility] [address] [place] [address] documented in this encounter Visit Diagnoses Diagnosis Diaphragmatic hernia without obstruction or gangrene Diaphragmatic hernia without mention of obstruction or gangrene Anemia, unspecified documented in this encounter Care Teams Medical Nurse Relationship Specialty Start Date End Date Ashley Chavez ARNP [address] [place] [address] PCP - General 07/11/10 documented as of this encounter
--- OUTSIDE RECORDS SUMMARY | 2024-06-06 13:58 | XMS_ITS | Encounter Summary ---
Author Organization [facility] Address [address] [place] [address] Care Team Providers Care Solar Installation Manager Name Role Phone ScottNicolei WILLIAM Primary Care Provider [phone] Encounter Details Date Type Department Care Team (Late st Contact Info) Description 03/21/2024 Lab Requisition [facility] Pathology & Laboratory Medicine - [address] [address] Consuelo Guerrero, DO [address] [place], [place] [address] Encounter for other general examination Social History [...] EDT) LORY Negative 03/21/2024 22:31 EDT [facility] Blood VENOUS BLOOD / Unknown 03/21/2024 13:00 EDT 03/21/2024 21:51 EDT Consuelo Guerrero DO BLOOD BANK TESTS [facility] [address] [place] [address] documented in this encounter Visit Diagnoses Diagnosis Encounter for other general examination documented in this encounter Care Teams Solar Installation Manager Relationship Specialty Start Date End Date Ashley Chavez ARNP [address] [place] [address] PCP - General 07/11/10 documented as of this encounter
--- OUTSIDE RECORDS SUMMARY | 2024-06-06 13:58 | XMS_ITS | Encounter Summary ---
Author Organization [facility] Address [address] [place] [address] Care Team Providers Care Margin Clerk Name Role Phone Ashley Chavez Primary Care Provider Encounter Details Date Type Department Care Team (Late st Contact Info) Description 12/17/2021 Lab Requisition [facility] Pathology & Laboratory Medicine - [address] [address] Outr Resulting Lab, Provider Social History Tobacco [...] Negative Negative 12/18/2021 10:37 EDT [facility] Blood VENOUS BLOOD / Unknown 12/17/2021 13:30 EDT 12/17/2021 21:32 EDT Provider Outr Resulting Lab IMMUNOLOGY A ND SEROLOGY ORDERABLES Performing Organization Address [facility] Co de Phone Number [facility] [address] [place] [address] * (ABNORMAL) ANTI NUCLEAR AB (FRANCISCO), IFA (12/17/2021 13:30 EDT) FRANCISCO Interpretation Positive(A) Negative 12/18/2021 16:06 EDT [facility] Comment: For titers greater than [...] 1:1280 Speckled 12/18/2021 16:06 EDT [facility] Blood VENOUS BLOOD / Unknown 12/17/2021 13:30 EDT 12/17/2021 21:32 EDT Narrative [facility] - 12/18/2021 16:06 EDT Results were obtained with the INOVA NOVA Lite HEp-2 FRANCISCO Kit by indirect immunofluorescence. Provider Outr Resulting Lab IMMUNOLOGY A ND SEROLOGY ORDERABLES Performing Organization Address [facility] Co de Phone Number [facility] [address] [place] [address] documented in this encounter Visit Diagnoses Not on filedocumented in this encounter Care Teams Margin Clerk Relationship Specialty Start Date End Date Ashley Chavez ARNP [address] [place] [address] PCP - General 07/11/10 documented as of this encounter
--- OUTSIDE RECORDS SUMMARY | 2024-06-06 13:58 | XMS_ITS | Encounter Summary ---
Author Organization [facility] Address [address] [place] [address] Care Team Providers Care Roster Clerk Name Role Phone Unavailable Primary Care Provider Unavailabl e Encounter Details Date Type Department Care Team (Late st Contact Info) Description 06/29/2007 Results Only [facility] [address] [place] [address] Sánchez Acevedo MD [address] [place] [address] Social History Tobacco Use Types Packs/Day Years [...] ? 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 Accession #: ? [id number] ? : ? 1955 (Age: 51) ??F [...] covered by a smooth white serosa. ??Three metals sales representative sections of the gallbladder are submitted in one cassette. ??(Sriram Elias/[facility] End of Report [facility] 06/29/2007 06/29/2007 21: 23 EST Sánchez Acevedo MD PATHOLOGY ORDERABLE S [facility] [address] [place] [address] documented in this encounter Visit Diagnoses Not on filedocumented in this encounter
--- OUTSIDE RECORDS SUMMARY | 2024-06-06 13:58 | XMS_ITS | Encounter Summary ---
Author Organization [facility] Address [address] [place] [address] Care Team Providers Care Eligibility Supervisor Name Role Phone Ashley Chavez Primary Care Provider [phone] Encounter Details Date Type Department Care Team (Late st Contact Info) Description 10/30/2022 Lab Requisition [facility] Pathology & Laboratory Medicine - [address] [address] Outr Resulting Lab, Provider Social History Tobacco [...] Stranded) <12.3 <30.0 IU/mL 11/03/2022 13:08 EDT [facility] Comment: ? Negative: ??<30.0 IU/mL ? Borderline Positive: ??30.0 - 75.0 IU/mL ? Positive: ??>75.0 IU/mL Results were obtained with the INOVA QUANTA Lite dsDNA SC DOMO assay on the [employer] DSX. Blood VENOUS BLOOD / Unknown 10/29/2022 14:00 EDT 10/30/2022 19:27 EDT Provider Outr Resulting Lab IMMUNOLOGY A ND SEROLOGY ORDERABLES Performing Organization Address [facility] de Phone Number [facility] [address] [place] [address] * SM (MORENO) ANTIBODY (10/29/2022 14:00 EDT) [facility] SM (Moreno) Antibody 18.5 <20.0 Units 11/03/2022 14:26 EDT [facility] Comment: ? Negative: <20.0 [...] SEROLOGY ORDERABLES Performing Organization Address [facility] de Phone Number [facility] [address] [place] [address] documented in this encounter Visit Diagnoses Not on filedocumented in this encounter Care Teams Eligibility Supervisor Relationship Specialty Start Date End Date Ashley Chavez ARNP [address] [place] [address] PCP - General 07/11/10 documented as of this encounter
--- OUTSIDE RECORDS SUMMARY | 2024-06-06 13:58 | XMS_ITS | Encounter Summary ---
Author Organization [facility] [place] [address] Care Team Providers Care Completion Supervisor Name Role Phone Magdalena Acosta MD Primary Care Provider [phone] Encounter Details Date Type Department Care Team (Late st Contact Info) Description 06/05/2024 2:00 PM EST - 06/05/2024 3:00 PM EST Surgery [facility] [place] [address] Markel Borjas MD [facility] [place] [address] ([facility] MS[facility]G) BONE MARROW BIOPSY AND ASPIRATION; DIAGNOSTIC (WRVU 1.44) Social History Tobacco Use Types Packs/Day Years Used Date Smoking Tobacco: Never Smokeless Tobacco: Never Alcohol Use Standard Drinks/Week Comments No 0 (1 standard drink = 0.6 oz pur e alcohol) none DH IPV Inpatient Questions Answer Date Recorded Does Anyone Try to Keep You From Having Contact with Others or Doing Things Outside Your Home? no 06/05/2024 Feels Threatened by Someone no 11/2023 Feels Unsafe at Home or Work/School no 06/05/2024 Physical Signs of Abuse Present no 06/05/2024 Sex and Gender Information Value Date Recorded Sex Assigned at Not on file Gender Identity Not on file Sexual Orientation Not on file documented as of this encounter Last Filed Vital Signs Vital Sign Reading Time Taken Comments Blood Pressure 132/60 06/05/2024 2:45 PM EST Pulse 71 06/05/2024 3:00 PM EST Temperature 36.6 ??C (97.9 ??F) 06/05/2024 1:23 PM ES T Respiratory Rate 16 06/05/2024 3:00 PM EST Oxygen Saturation 98% 06/05/2024 3:00 PM EST Inhaled Oxygen Concentration - - Weight 84.8 kg (187 lb) 06/05/2024 1:23 PM EST Height 152.4 cm (5') 06/05/2024 1:23 PM EST Body Mass Index 36.52 06/05/2024 1:23 PM EST documented in this encounter Discharge Instructions * Discharge Instructions* Hien Tapia RN - 06/05/2024 1:08 PM EST OUTPATIENT SURGERY POST-OPERATIVE INSTRUCTIONS BONE MARROW BIOPSY SITE You have had a bone marrow aspiration and or/biopsy, which is like having an operation with a tiny,deep incision. Do Not do any strenuous work today, like housework, yard work, sports of any kind or lifting more than 5 pounds as it may cause your bone marrow site to bleed. To avoid infection, leave the clear plastic dressing on the site for three days. You may shower, bathe, or swim as you wish, provided the clear dressing remains intact, and all sides of the dressing are firmly adhered to the skin. In the unlikely event that a portion or the entire dressing should come off, you may replace it with a conventional cloth band aid. However, you will no longer be able to get the site wet until three days have passed, as a conventional band aid is not waterproof and the site is no longer a sterile area. It is not unusual for the site to leak a scant amount of blood, so do not be alarmed to see a smallcollection, or ???puddle?? of blood under the dressing. Wound healing will still occur. If you are uncertain if there is an increase in any leaking from your bone marrow site, roll up a towel, lie down on a firm surface, place the towel directly over the puncture site to apply pressure,and rest there for one half hour. Direct, FIRM thumb pressure applied to the site for 10 minutes works well as an alternative method. Leave the dressing on. Most people do not experience much discomfort after this procedure, but if you do, you should ask your physician what to take. AVOID ASPIRIN PRODUCTS as these interfere with clotting. After three days, remove your dressing and leave it off, so the air can get to the site to finish the healing process. NOTIFY YOUR DOCTOR FOR: Redness Heat Fever Swelling Drainage Increased pain Foul odor (which may not be apparent through the dressing) If you are having problems or have any additional concerns or questions: Between 8am and 5pm - Call the Hematology Clinic at . After 5pm or on a weekend: Call the [facility] squeegee operator at and ask for the physician donation specialist covering for your doctor. Instructions following sedation You may have received medication before and/or during your procedure, which affects judgement and reaction time. Use caution with stairs. Do not drive, operate machinery, drink alcoholic beverages, or make any legal decisions for 24 hours. You may eat a regular diet as tolerated. Do not smoke if you are alone. IV site -- slight redness, or tenderness is normal, you can use a warm compress. If tenderness and redness increases or foul drainage occurs, please [place] [address] [email or web address] documented in this encounter Medications at Time of Discharge Medication Sig Dispensed Refills Start Date End Date hydrOXYchloroQUINE (Plaquenil) 200 mg tablet Take 1 tablet by mouth daily. 90 tablet 1 05/24/2024 pantoprazole EC (Protonix) [address] tablet Take 40 mg by mouth daily. losartan (Cozaar) 25 mg tablet Take 25 mg by mouth daily. 09/07/2023 metoprolol succinate XL (Toprol-XL) 50 mg ER 24 hr tablet Take 50 mg by mouth daily. 09/07/2023 cyanocobalamin, vitamin B-12, (Vitamin B-12) 500 mcg tablet Take 500 mcg by mouth daily. spironolactone (Aldactone) 25 mg tabletIndications:HFrE F (heart failure with reduced ejection fraction),Hypertension , unspecified type Take 0.5 tablets by mouth daily. 07/20/2023 clopidogreL (Plavix) 75 mg tabletIndications:Aort ic valve stenosis, etiology of cardiac valve disease unspecified Take 1 tablet by mouth daily. she can take ticagrelor, then the next morning, stop ticagrelor, instead take clopidogrel 300mg once, then after that 75mg once daily. 90 tablet 3 07/20/2023 nystatin (MYCOSTATIN) 100,000 unit/gram Powder Apply topically 2 times daily as needed. 10/22/2022 [email or web address] Verio test strips Strip USE DAILY 01/03/2022 [email or web address] Delica Plus Lancet 33 gauge Misc USE [...] tablet Take 81 mg by mouth daily. documented as of this encounter Progress Notes * Hien Tapia RN - 06/05/2024 1:48 PM EST Date/Procedure: Meds Given Comments Bone Marrow Biopsy Midazolam: 1 mg IVP, 0.5 mg IVP Fentanyl: 25 mcg IVP Shen well Discharge instructions and medications reviewed with patient. All questions answered and written copy sent home with patient. Patient ambulated to car for discharge accompanied by [facility] staff member. documented in this encounter H&P Notes * Amanda Erickson APRN - 06/04/2024 8:15 PM EST Pre-Sedation Assessment: Planned procedure: bone marrow biopsy and aspirate Indications: abnormal counts Diagnosis: low white count, anemia Assessment: Cardiovascular: Rhythm: Regular Rate: Normal Pulmonary: Breath sounds clear to auscultation ASA: 2: Patient with mild systemic disease Mallampati: II: tonsillar pillars are blocked by the tongue H&P reviewed: Yes Relevant diagnostic studies: cbc Confirm NPO status: Yes, Date and Time of last intake: dinner last night History of anesthetic complications: No Current medications reviewed: Yes Allergies reviewed: Yes Alcohol use: denies use, Date and Time of last drink: n/a Drug use: denies use Sedation Plan: moderate (conscious sedation) The sedation plan, its benefits and risks, and alternatives were discussed with the patient. The planned procedure, its benefits and risks, and alternatives were discussed with the patient. The patient consented to the procedure. Discharge to: home w/ family Amanda Erickson APRN documented in this encounter Procedure Notes * Amanda Erickson APRN - 06/04/2024 8:17 PM ESTProcedure(s): ([facility] MSURG) BONE MARROW BIOPSY AND ASPIRATION; DIAGNOSTIC Pre-Procedure Diagnose(s): Other neutropenia Post-Procedure Diagnose(s): Other neutropenia BONE MARROW BIOPSY AND ASPIRATION PROCEDURE NOTE Bone marrow biopsy with sedation Consent: Signed and on chart DIAGNOSIS: low white count, anemia IV ACCESS: peripheral Pre-Procedure: (x) Pt and family educated about bone marrow biopsy and aspiration. (x) Consent signed (scanned into pt's chart) (x) CBC drawn within 2 days. (x) Medications/Allergies/Problem List reviewed Prior to start of procedure the following is verified in a Time Out: (x) Patient identity (x) Planned procedure (x) Safety concerns PAIN INTERVENTION: Conscious sedation w/ Fentanyl and Versed. See conscious sedation RN notes Sterile Condition: Chlorohexidine was used to cleanse the biopsy site Sterile drapes were used to create a sterile field. Local Anesthesia: 1 % Lidocaine: total dose = 30 cc / 300 mg PROCEDURE: A bone marrow biopsy and aspiration was performed on the left posterior iliac crest. Tegaderm dressing placed and pressure applied to site for 30 minutes following the procedure. Estimated Blood Loss: minimal Complications: none Testing: Per bone marrow requisition Follow-up: Written/Verbal instructions for site care reviewed and given to the patient. Encouraged to call with any concerns. Follow-up with Physician as instructed. Amanda Erickson APRN documented in this encounter Plan of Treatment Upcoming Encounters Date Type Department Care Team (Late st Contact Info) Description 06/23/2024 2:00 PM EST Office Visit Hematology [place] [address] Markel Borjas MD [facility] [address] [place] [address] 11/02/2024 12:00 PM EDT Appointment [place] [phone] 11/02/2024 1:00 PM EDT Office Visit [place] [phone] Magdalena Peralta MD [facility] [place] [address] 03/01/2025 4:15 PM EDT Office Visit Dermatology at [address] [place] [phone] Marek Bonilla MD [address] [facility] [place] [address] Pending Results Name Type Priority Associated Diagnoses Date/Time Bone Marrow Pathology/Cyt ology Routine 06/05/2024 2:22 PM EST Bone Marrow Pathology/Cyt ology Routine 06/05/2024 2:22 PM EST Immunophenotyping Flow Cytometry Lab Routine 06/05/2024 2:22 PM EST DH HemeSeq (Bone Marrow) Lab Routine 06/05/2024 2:22 PM EST Chromosome Analysis, Acquired ([facility]) Lab Routine 06/05/2024 2: 22 PM EST Myelodysplastic Syndrome (MDS) FISH Panel Lab Routine 06/05/2024 2:22 PM EST Scheduled Orders Name Type Priority Associated Diagnoses Order Schedule Bone Marrow Pathology/Cyt ology Routine One Time for 1 Occurrences starting 06/05/2024 until 06/05/2024 Bone Marrow Pathology/Cyt ology Routine Once for 1 Occurrences starting 06/05/2024 until 06/05/2024, 1 completed Immunophenotyping Flow Cytometry Lab Routine One Time for 1 Occurrences starting 06/05/2024 until 06/05/2024, 1 completed [facility] HemeSeq (Bone Marrow) Lab Routine One Time for 1 Occurrences starting 06/05/2024 until 06/05/2024 Chromosome Analysis, Acquired ([facility]) Lab Routine One Time for 1 Occurrences starting 06/05/2024 until 06/05/2024 Myelodysplastic Syndrome (MDS) FISH Panel Lab Routine One Time for 1 Occurrences starting 06/05/2024 until 06/05/2024, 1 completed documented as of this encounter Procedures Procedure Name Priority Date/Time Associated Diagnosis Comments BM HOLD CG/FISH Routine 06/05/2024 2:22 PM EST BM HOLD FLOW/MOLECULAR Routine 06/05/2024 2:22 PM EST Diagnostic Bone Marrow Biopsies & Aspirations (154[address]) 06/05/2024 2:03 PM EST Anemia, in pt with longstanding neutropenia CBC (WITH DIFF) Routine 06/05/2024 1:45 PM EST ([facility] MSURG) BONE MARROW BIOPSY AND ASPIRATION; DIAGNOSTIC Routine 06/05/2024 1:07 PM EST documented in this encounter Results * BM HOLD CYTOGENETICS/FISH (06/05/2024 2:22 PM EST) Bone Marrow Non Blood Collection / Unknown 06/05/2024 2:22 PM EST 06/05/2024 3:07 PM EST Narrative [facility] - 06/06/2024 10:47 AM EST ~3ml Markel Borjas MD PATHOLOGY/CYTOLOGY ORDERABLES [facility] [place] [address] * BM HOLD FLOW/MOLECULAR (06/05/2024 2:22 PM EST) Bone Marrow Non Blood Collection / Unknown 06/05/2024 2:22 PM EST 06/05/2024 3:07 PM EST Markel Borjas MD PATHOLOGY/CYTOLOGY ORDERABLES [facility] [place] [address] * (ABNORMAL) CBC (with Diff) (06/05/2024 1:45 PM EST) White Blood Cell 3.06(L) 4.00 - 9.50 x10(3)/mc L 06/05/2024 2:38 PM [facility] Red Blood Cell 3.35(L) 4.00 - 5.21 x10(6)/mc L 06/05/2024 2:38 PM [facility] Hemoglobin 11.0(L) 11.7 - 15.5 g/dL 06/05/2024 2:38 PM [facility] Hematocrit 33.4(L) 35.7 - 45.8 % 06/05/2024 2:38 PM [facility] Mean Cell Volume 99.7(H) 82.6 - 94.4 fL 06/05/2024 2:38 PM [facility] Mean Cell Hemoglobin 32.8(H) 27.1 - 32.0 pg 06/05/2024 2:38 PM [facility] Mean Cell Hemoglobin Concentration 32.9 31.7 - 35.0 g/dL 06/05/2024 2:38 PM [facility] Platelet 151 145 - 357 x10(3)/mc L 06/05/2024 2:38 PM [facility] Mean Platelet Volume 8.9 7.6 - 12.9 fL 06/05/2024 2:38 PM [facility] RDW Standard Deviation 44.3 37.0 - 46.0 fL 06/05/2024 2:38 PM [facility] RDW coefficient of variation 12.0 11.5 - 14.1 % 06/05/2024 2:38 PM [facility] NRBC% auto 0.0 % 06/05/2024 2:38 PM [facility] NRBC Absolute <0.01 <0.01 x10(3)/mc L 06/05/2024 2:38 PM [facility] Neutrophil % 62.8 % 06/05/2024 2:38 PM [facility] Neutrophil Absolute (ANC) - Automated 1.92 1.70 - 6.10 x10(3)/mc L 06/05/2024 2:38 PM [facility] Lymph % 20.9 % 06/05/2024 2:38 PM [facility] Lymph Absolute 0.64(L) 0.90 - 3.20 x10(3)/mc L 06/05/2024 2:38 PM [facility] Monocyte % 15.0 % 06/05/2024 2:38 PM [facility] Monocyte Absolute 0.46 0.30 - 0.90 x10(3)/mc L 06/05/2024 2:38 PM [facility] Eos % 0.3 % 06/05/2024 2:38 PM [facility] Eos Absolute <0.04 0.00 - 0.40 x10(3)/mc L 06/05/2024 2:38 PM [facility] Basophil % 0.7 % 06/05/2024 2:38 PM [facility] Baso Absolute <0.04 0.00 - 0.10 x10(3)/mc L 06/05/2024 2:38 PM [facility] Immature Gran % 0.3 % 2:38 PM [facility] Immature Gran Absolute <0.04 0.00 - 0.04 x10(3)/mc L 06/05/2024 2:38 PM [facility] Blood VENOUS BLOOD SPECIMEN / Unknown Venipuncture / Unknown 06/05/2024 1:45 PM EST 06/05/2024 1:59 PM EST Markel Borjas [place] [address] documented in this encounter Visit Diagnoses Not on filedocumented in this encounter Administered Medications Inactive Administered Medications - up to 3 most recent administrations Medication Order MAR Action Action Date Dose Rate Site fentaNYL (pf) (50 mcg/mL) multi-dose injection 25 mcg 25 mcg, Intravenous, EVERY 5 MIN PRN, Starting on Wed06/05/24 at 1307, Until Wed06/05/24 at 1521, Sedation, Administer every 5 min to achieve pain scale 1-3. Hold for respiratory rate less than 8 breaths per minute. Dose not to exceed 200 mcg., Intra-Operative (Intra-Procedure), Routine Given 06/05/2024 2:07 PM EST 25 mcg midazolam (pf) (Versed) (1 mg/mL) multi-dose injection 0.25-1 mg 0.25-1 mg, Intravenous, EVERY 5 MIN PRN, Starting on Wed06/05/24 at 1307, Until Wed06/05/24 at 1521, Sedation, Administer every 5 minutes to achieve RASS (-)1. Hold for delirium/agitation. Dose not to exceed 4 mg., Intra-Operative (Intra-Procedure), Routine Given 06/05/2024 2:12 PM EST 0.5 mg Given 06/05/2024 2:07 PM EST 1 mg documented in this encounter Active and Recently Administered Medications Due to Daylight Saving Time, this section may contain times in both EDT and EST. PRN Medication Order 06/03/2024 06/04/2024 06/05/2024 fentaNYL (pf) (50 mcg/mL) multi-dose injection 25 mcg (CANCELED) 25 mcg, Intravenous, EVERY 5 MIN PRN, Starting on Wed06/05/24 at 1307, Until Wed06/05/24 at 1521, Sedation, Administer every 5 min to achieve pain scale 1-3. Hold for respiratory rate less than 8 breaths per minute. Dose not to exceed 200 mcg., Intra-Operative (Intra-Procedure), Routine 1407 (Given - Provid er: Hien Mckinnon RN) midazolam (pf) (Versed) (1 mg/mL) multi-dose injection 0.25-1 mg (CANCELED) 0.25-1 mg, Intravenous, EVERY 5 MIN PRN, Starting on Wed06/05/24 at 1307, Until Wed06/05/24 at 1521, Sedation, Administer every 5 minutes to achieve RASS (-)1. Hold for delirium/agitation. Dose not to exceed 4 mg., Intra-Operative (Intra-Procedure), Routine 1407 (Given - Provid er: Hien Mckinnon RN)1412 (Given - Provider: Hien Mckinnon RN) documented in this encounter Care Teams Completion Supervisor Relationship Specialty Start Date End Date Magdalena Acosta MD [address] [place] [address] PCP - General Family Medicine 02/05/23 documented as of this encounter
--- OUTSIDE RECORDS SUMMARY | 2024-06-06 13:58 | XMS_ITS | Clinical Summary ---
Author Organization [facility] Address [facility] [place] [address] Care Team Providers Care Gas Utility Worker Name Role Phone Magdalena Acosta MD Primary Care Provider [phone] Allergies No known active allergies Medications Medication [...] [facility] 11/09/2022 Heart failure with reduced e [...] Encounters Date Type Department Care Team Description 06/05/2024 2:00 PM EST - 06/05/2024 3:00 PM [facility] Surgery [place] [address] Markel Borjas MD [facility] BONE MARROW BIOPSY AND ASPIRATION; DIAGNOSTIC (WRVU 1.44) 06/05/2024 1:04 PM EST - 06/05/2024 3:08 PM EST Hospital Encounter [place] [address] Markel Borjas MD Discharge Disposition: Home 06/01/2024 10:00 AM EDT Office Visit Rheumatology at [place] [phone] Magdalena Peralta MD Mixed connective tissue disease 05/31/2024 Travel 05/24/2024 Refill Internal Medicine at [place] [phone] Magdalena Peralta MD 05/18/2024 Interpretation Only [address] [address] Magdalena Acosta MD 05/18/2024 Interpretation Only [address] [phone] Magdalena Acosta MD 05/12/2024 10:00 AM EDT Office Visit Hematology [place] [phone] Markel Borjas MD Chronic idiopathic neutropenia 05/12/2024 9:00 AM EDT Laboratory Appointment Lab at [facility] Hematology Oncology [address] [place], [place] [id number] S/P TAVR (transcatheter aortic valve replacement); Chronic idiopathic neutropenia 05/12/2024 Travel 05/10/2024 Travel 04/11/2024 Transcribe Orders eDH Incoming Referrals [phone] Consuelo Guerrero DO Anemia, unspecified type from Last 3 Months Immunizations Name Administration [...] Mass Index 36.52 06/05/2024 1:23 PM EST Plan of Treatment Upcoming Encounters Date Type Department Care Team (Late st Contact Info) Description 06/23/2024 2:00 PM EST Office Visit Hematology [place] [phone] Markel Borjas MD [facility] [address] [place] [address] 11/02/2024 12:00 PM EDT Appointment [place] [phone] 11/02/2024 1:00 PM EDT Office Visit [place] [address] Magdalena Peralta MD [facility] [place] [address] 03/01/2025 4:15 PM EDT Office Visit Dermatology at [place] [address] [facility] [address] [place] [phone] Marek Bonilla MD [address], [place] [address] Health Maintenance Due Date Last Done Comments [...] Advance Directive 2010 Covid-19 Vaccine (1 - 2023-2 5 season) 2024 Influenza (Flu) vaccine (1 o f 1 - Influenza standard series) 04/02/2024 05/22/2023, 05/18/2016 Breast Cancer screening 05/18/2026 05/18/20 24, 06/05/2021, 06/05/2021 Diabetes Screening (HgbA1C o r Glucose) 05/12/2027 05/12/2024, 07/08/2023, 05/22/2023, Additional history exists Bone Density Scan 05/18/2039 05/18/2024, 06/05/2021 Medical Devices Implanted Type Area Block Sorter Device Identifier Shelf Expiration Date Model / Serial / Lot Valve,Aor,Pericar d,Magna,25mm ([id number]) - [id number] Implanted:Qty: 1 on 09/21/2016 by Alirio Esparza MD at [facility] IMPLANTS N/A: Heart DO NOT USE [employer] - [id number] 06/02/2020 [id number] / / [id number] Cable,Blnt,Ss,38i n ([id number]) - [id number] Implanted:Qty: 4 on 09/21/2016 by Alirio Esparza MD at [facility] IMPLANTS N/A: Chest [employer] - [id number] 04/29/2021 [id number] / / [id number] Patch,Cav,Pericar d,2x5cm ([id number]) (Autoreq) - [id number] Implanted:Qty: 1 on 09/21/2016 by Alirio Esparza MD at [facility] IMPLANTS N/A: Heart DO NOT USE [employer] - [id number] 04/21/2018 [id number] / / [id number] Tavr-05/12/2023 Implanted:Qty: 1 on 05/12/2023 by Antelmo Sharma MD Other Heart [employer] - [place] [id number] / [id number] / Description:[employer] NCES ABBY 3 ULTRA RESILIA TRANSCATHETER HEART VALVE Procedures Procedure Name Priority Date/Time Associated Diagnosis Comments BM HOLD CG/FISH Routine 06/05/2024 2:22 PM EST BM HOLD FLOW/MOLECULAR Routine 06/05/2024 2:22 PM EST Diagnostic Bone Marrow Biopsies & Aspirations (17666) 06/05/2024 2:03 PM EST Anemia, in pt with longstanding neutropenia CBC (WITH DIFF) Routine 06/05/2024 1:45 PM EST ([facility]) BONE MARROW BIOPSY AND ASPIRATION; DIAGNOSTIC Routine 06/05/2024 1:07 PM EST DXA CENTRAL SPINE, HIP, AND/OR WHOLE BODY (GENERIC) Routine 05/18/2024 11:21 AM EDT MAMMO SCREENING CAD BILATERAL (CH) Routine 05/18/2024 11:21 AM EDT RETICULOCYTE COUNT STAT 05/12/2024 8: 56 AM EDT Chronic idiopathic neutropenia COMPREHENSIVE METABOLIC PANEL STAT 05/12/2024 8:56 AM EDT Chronic idiopathic neutropenia CBC (WITH DIFF) STAT 05/12/2024 8:56 AM EDT Chronic idiopathic neutropenia from Last 3 Months Results * BM HOLD CYTOGENETICS/FISH (06/05/2024 2:22 PM EST) Bone Marrow Non Blood Collection / Unknown 06/05/2024 2:22 PM EST 06/05/2024 3:07 PM EST Narrative [facility] - 06/06/2024 10:47 AM EST ~3ml Markel Borjas MD PATHOLOGY/CYTOLOGY ORDERABLES Performing Organization Address City/[facility]/ZIP Co de Phone Number [facility] [place] [address] * BM HOLD FLOW/MOLECULAR (06/05/2024 2:22 PM EST) Bone Marrow Non Blood Collection / Unknown 06/05/2024 2:22 PM EST 06/05/2024 3:07 PM EST Markel Borjas MD PATHOLOGY/CYTOLOGY ORDERABLES Performing Organization Address City/[facility]/ZIP Co de Phone Number [facility] [place] [address] * (ABNORMAL) CBC (with Diff) (06/05/2024 1:45 PM EST) Only the most recent of2 resultswithin the time period is included. White Blood Cell 3.06(L) 4.00 - 9.50 x10(3)/mc L 06/05/2024 2:38 PM EST [facility] Red Blood Cell 3.35(L) 4.00 - 5.21 x10(6)/mc L 06/05/2024 2:38 PM EST [facility] Hemoglobin 11.0(L) 11.7 - 15.5 g/dL 06/05/2024 2:38 PM EST [facility] Hematocrit 33.4(L) 35.7 - 45.8 % 06/05/2024 2:38 PM EST [facility] Mean Cell Volume 99.7(H) 82.6 - 94.4 fL 06/05/2024 2:38 PM EST [facility] Mean Cell Hemoglobin 32.8(H) 27.1 - 32.0 pg 06/05/2024 2:38 PM [facility] Mean Cell Hemoglobin Concentration 32.9 31.7 - 35.0 g/dL 06/05/2024 2:38 PM [facility] Platelet 151 145 - 357 x10(3)/mc L 06/05/2024 2:38 PM [facility] Mean Platelet Volume 8.9 7.6 - 12.9 fL 06/05/2024 2:38 PM [facility] RDW Standard Deviation 44.3 37.0 - 46.0 fL 06/05/2024 2:38 PM [facility] RDW coefficient of variation 12.0 11.5 - 14.1 % 06/05/2024 2:38 PM [facility] NRBC% auto 0.0 % 06/05/2024 2:38 PM [facility] NRBC Absolute <0.01 <0.01 x10(3)/mc L 06/05/2024 2:38 PM [facility] Neutrophil % 62.8 % 06/05/2024 2:38 PM [facility] Neutrophil Absolute (ANC) - Automated 1.92 1.70 - 6.10 x10(3)/mc L 06/05/2024 2:38 PM [facility] Lymph % 20.9 % 06/05/2024 2:38 PM [facility] Lymph Absolute 0.64(L) 0.90 - 3.20 x10(3)/mc L 06/05/2024 2:38 PM [facility] Monocyte % 15.0 % 06/05/2024 2:38 PM [facility] Monocyte Absolute 0.46 0.30 - 0.90 x10(3)/mc L 06/05/2024 2:38 PM [facility] Eos % 0.3 % 06/05/2024 2:38 PM [facility] Eos Absolute <0.04 0.00 - 0.40 x10(3)/mc L 06/05/2024 2:38 PM [facility] Basophil % 0.7 % 06/05/2024 2:38 PM [facility] Baso Absolute <0.04 0.00 - 0.10 x10(3)/mc L 06/05/2024 2:38 PM EST [facility] Immature Gran % 0.3 % 2:38 PM EST [facility] Immature Gran Absolute <0.04 0.00 - 0.04 x10(3)/mc L 06/05/2024 2:38 PM EST [facility] Blood VENOUS BLOOD SPECIMEN / Unknown Venipuncture / Unknown 06/05/2024 1:45 PM EST 06/05/2024 1:59 PM EST Markel Borjas MD HEMATOLOGY ORDERAB LES [facility] [place] [address] * DXA Central Spine, Hip, and/or Whole Body (Generic) (05/18/2024 11:21 AM EDT) PT CLASS O RAD ADMITDTTM [id number] RAD PT RAD MD INFO [id number]^Dave ^Magdalena RAD EXAM DESC XDXAC^BD Bone Density DEXA Axial Skeleton^RIS [facility] WORKSTATION ID RADDRIMAGE [facility] Anatomical Region Laterality Modality C-spine, Hip [...] have questions please contact the health career center director that requested your imaging first. [...] who have questions please contactthe health career center director that requested your imaging first. Magdalena Acosta MD IMG DEXA ORDERABLES * MAMMO SCREENING CAD BILATERAL (CH) (05/18/2024 11:21 AM EDT) PT CLASS O RAD ADMITDTTM [id number] RAD PT RAD INFO [id number]^Dave ^Magdalena RAD EXAM DESC MADDSCCH^MG Mammo Digital Screening Bilateral.^RIS RAD WORKSTATION ID RADDRIMAGE [facility] Anatomical Region Laterality Modality Other 05/18/2024 11:2 [...] have questions please contact the health career center director that requested your imaging first. ? [address] ??[address] Narrative 05/18/2024 3:05 PM EDT EXAMINATION: MG [...] who have questions please contactthe health career center director that [place] [address] Magdalena Acosta MD PACS IMAGES * Reticulocyte [...] EDT 05/12/2024 8:56 AM EDT Tova Russell WIRE DRAWER HEMATOLOGY ORDERABL ES [facility] [place] [address] * (ABNORMAL) Comprehensive metabolic panel Non-fasting (05/12/2024 [...] 3.5 - 5.0 mMol/L 05/12/2024 11:36 [facility] Chloride 109(H) 98 - 107 mMol/L 05/12/2024 11:36 AM [facility] Carbon Dioxide 21(L) 22 - 31 mMol/L 05/12/2024 11:36 AM EDT [facility] Anion Gap 15 5 [...] EDT 05/12/2024 8:56 AM EDT Tova Russell WIRE DRAWER CHEMISTRY ORDERABLE S [facility] [address] [place] [address] from Last 3 Months Advance Directives * [...] capacity to make decision: Yes Care Teams Gas Utility Worker Relationship Specialty Start Date End Date Magdalena Acosta MD [address] [place] [address] PCP - General Family Medicine 02/05/23
--- OUTSIDE RECORDS SUMMARY | 2024-06-06 13:58 | XMS_ITS | Encounter Summary ---
Author Organization [facility] Address [address] [place] [address] Care Team Providers Care Head Batcher Name Role Phone Ashley Chavez Primary Care Provider [phone] Encounter Details Date Type Department Care Team (Late st Contact Info) Description 06/23/2016 Results Only [facility] [phone] Matthew Acevedo, DO [address] [facility] [place] [address] [place] [address] Social History Tobacco Use Types Packs/Day [...] ? PURNIMA THACKER ? Accession #: ? [id number] : ? 1955 (Age: 60) ??F ?Collect [...] ??400 ?? KARYOTYPE: 46,XX[25] End of Report [facility] 06/23/2016 06/24/2016 Matthew Acevedo DO PATHOLOGY ORDER JODIE [facility] [address] [place] [address] * FLOW CYTOMETRY (06/23/2016 0:00 EST) Pathology Report: FLOW CYTOMETRY REPORT Reports generated via electronic interface contain original data; however they are lacking the format of the original report. Caution should be taken when reading/interpreting unformatted reports. Name: ? PURNIMA THACKER ? Accession #: ? [id number] : ? 1955 (Age: 60) ??F ?Collect Date: ? 06/23/2016 00:00 Location: ? [facility] ? Receive Date: ? 06/24/2016 08:00 Provider: ?MATTHEW ACEVEDO DO Copy to: ?WINTER HANKINS INK JET OPERATOR MRAIO ALBERTO RAMOS MD ? FINAL IMMUNOPHENOTYPIC INTERPRETATION: ? Bone marrow, flow cytometric analysis: -No immunophenotypic evidence of a clonal cell population. ??See comment. ? COMMENT: The results of flow cytometry show no immunophenotypic evidence of involvement by a clonal lymphoproliferative or myeloproliferative disorder. ??Correlation of these findings with morphologic and clinical data is essential. ??Please refer to pathology report number [id number] for morphologic details. ? Document reviewed and [...] the Department of Pathology and Laboratory Medicine, [place] ??It has not been cleared or [...] clinical laboratory testing. End of Report ?? [facility] 06/23/2016 06/24/2016 8:0 0 EST Matthew Acevedo DO PATHOLOGY ORDER JODIE [facility] [address] [place] [address] * BONE MARROW/HEMPATH CONSULT (06/23/2016 0:00 EST) Pathology Report: BONE MARROW REPORT Reports generated via electronic interface contain original data; however they are lacking the format of the original report. Caution should be taken when reading/interpreting unformatted reports. Name: ? PURNIMA THACKER ? Accession #: ? [id number] : ? 1955 (Age: 60) ??F ?Collect Date: ? 06/23/2016 Location: ? [facility] ? Receive Date: ? 06/24/2016 Provider: ? MATTHEW ACEVEDO DO Copy to: ?WINTER HANKINS INK JET OPERATOR MARIO ALBERTO RAMOS MD ? DIAGNOSIS: [...] #1: Aggregate biopsy length: 8 mm with material chaser trabeculae of lamellar bone, cellular bone marrow, [...] SEE ABOVE DISCUSSION Lambda (polyclonal, Dako) ??(B1): [place] (polyclonal, Dako) ??(B1): Biopsy (decalcified) #2: Aggregate biopsy length: 8 mm with material chaser trabeculae of lamellar bone, cellular bone marrow, [...] (M115, Leica) ??(B2): Lambda (polyclonal, Dako) ??(B2): [place] (polyclonal, Dako) ??(B2): NOTE: ??One or more [...] performance characteristics have been determined by [facility]. ??The positive and negative controls worked [...] ? 1% Blasts ?1% Special Studies Cytogenetics ([id number]): Pending. Flow Cytometry ([id number]): No immunophenotypic evidence of a clonal cell population. ? End of Report [facility] 06/23/2016 06/24/2016 Matthew Acevedo DO PATHOLOGY ORDER JODIE [facility] [address] [place] [address] documented in this encounter Visit Diagnoses Not on filedocumented in this encounter Care Teams Head Batcher Relationship Specialty Start Date End Date Ashley Chavez ARNP [address] [place] [address] PCP - General 07/11/10 documented as of this encounter
--- OUTSIDE RECORDS SUMMARY | 2024-06-06 13:58 | XMS_ITS | Referral Summary ---
Author Organization [facility] Address [address] [place] [address] Care Team Providers Care Baking Factory Worker Name Role Phone Ashley Chavez Primary Care Provider [phone] Encounters Date Type Department Care Team Description 03/22/2024 Lab Requisition [facility] Pathology & Laboratory [address] [address] Consuelo Guerrero, DO Diaphragmatic hernia without obstruction or gangrene; Anemia, unspecified 03/21/2024 Lab Requisition [facility] Pathology & Laboratory [address] [address] Consuelo Guerrero DO Encounter for other general examination 03/21/2024 Lab Requisition [facility] Pathology & Laboratory [address] [address] Outr Resulting Lab, Provider from Last 3 [...] TESTS Performing Organization Address [facility] Co de Phone Number [facility] [address] [place] [address] * HAPTOGLOBIN (03/21/2024 13:00 EDT) Haptoglobin 183 32 - 197 mg/dL 03/22/2024 10:25 EDT [facility] Blood VENOUS BLOOD / Unknown 03/21/2024 13:00 EDT 03/21/2024 21:50 EDT Provider Outr Resulting Lab CHEMISTRY & BLOOD GAS ORDERABLES Performing Organization Address [facility] Co de Phone Number [facility] [address] [place] [address] * SURGICAL PATHOLOGY (03/21/2024 11:35 EDT) Note [...] - Deeper sections x3 examined. 03/24/2024 10:36 [facility] Attestation There was significant resident/fellow involvement in the diagnostic evaluation of this case. By the signature below, the attending physician certifies that they have personally conducted a gross and/or microscopic examination of the described specimens and rendered or confirmed the above diagnosis. 03/24/2024 10:36 [facility] at 1036 Clinical History Anemia, hiatal hernia, 38 cm aguayo diverticulosis 03/24/2024 10:36 [facility] Gross Description A. Received in [...] [facility] Performing Lab [facility] 10:36 EDT [facility] [...] PATHOLOGY ORDERABLES [facility] [address] [place] [address] from Last 3 Months Care Teams Baking Factory Worker Relationship Specialty Start Date End Date Ashley Chavez ARNP [address] [place] [address] PCP - General 07/11/10
--- OUTSIDE RECORDS SUMMARY | 2024-06-06 13:58 | XMS_ITS | Encounter Summary ---
Author Organization [facility] Address [address] [place] [address] Care Team Providers Care Courseware Developer Name Role Phone Ashley Chavez Primary Care Provider [phone] Encounter Details Date Type Department Care Team (Late st Contact Info) Description 05/12/2022 Lab Requisition [facility] Pathology & Laboratory Medicine - [address] [address] Outr Resulting Lab, Provider Social History Tobacco [...] EDT) Hold Hold 05/12/2022 22:46 EDT [facility] Blood VENOUS BLOOD / Unknown 05/12/2022 14:32 EDT 05/12/2022 21:40 EDT Provider Outr Resulting Lab LAB INFO SER VICE AND SUPPORT & PHONE RESULT Performing Organization Address [facility]/ZIP Co de Phone Number [facility] [address] [place] [address] * (ABNORMAL) HOMOCYSTEINE (05/12/2022 14:32 EDT) Homocysteine 14.7(H) 5.0 - 13.9 umol/L 05/13/2022 9:05 EDT [facility] Comment:Results may be false ly elevated if sample is not collected on ice or is not removed from cells within 1 hour of collection. Blood VENOUS BLOOD / Unknown 05/12/2022 14:32 EDT 05/12/2022 21:40 EDT Narrative [facility] - 05/13/2022 9:05 EDT [...] GAS ORDERABLES Performing Organization Address [facility] Co de Phone Number [facility] [address] [place] [address] * HAPTOGLOBIN (05/12/2022 14:32 EDT) Pathologist [facility] Haptoglobin 138 32 - 197 mg/dL 05/13/2022 9:55 EDT [facility] Blood VENOUS BLOOD / Unknown 05/12/2022 14:32 EDT 05/12/2022 21:36 EDT Provider Outr Resulting Lab CHEMISTRY & BLOOD GAS ORDERABLES Performing Organization Address [facility] Co de Phone Number [facility] [address] [place] [address] * (ABNORMAL) ANTI NUCLEAR AB (FRANCISCO), IFA (05/12/2022 14:32 EDT) FRANCISCO Interpretation Positive(A) Negative 05/13/2022 14:44 EDT [facility] Comment: Result is equal [...] 1 1:5120 Speckled 05/13/2022 14:44 EDT [facility] Blood VENOUS BLOOD / Unknown 05/12/2022 14:32 EDT 05/12/2022 21:36 EDT Narrative [facility] - 05/13/2022 14:44 EDT Results were obtained with the INOVA NOVA Lite HEp-2 FRANCISCO Kit by indirect immunofluorescence. Provider Outr Resulting Lab IMMUNOLOGY A ND SEROLOGY ORDERABLES [facility] [address] [place] [address] documented in this encounter Visit Diagnoses Not on filedocumented in this encounter Care Teams Courseware Developer Relationship Specialty Start Date End Date Ashley Chavez ARNP [address] [place] [address] PCP - General 07/11/10 documented as of this encounter
--- OUTSIDE RECORDS SUMMARY | 2024-06-06 13:58 | XMS_ITS | Clinical Summary ---
Author Organization [facility] Address [address] [place] [address] Care Team Providers Care Shore Worker Name Role Phone Ashley Chavez Primary Care Provider [phone] Encounters Date Type Department Care Team Description 03/22/2024 Lab Requisition [facility] Pathology & Laboratory [address] [address] Consuelo Guerrero, DO Diaphragmatic hernia without obstruction or gangrene; Anemia, unspecified 03/21/2024 Lab Requisition [facility] Pathology & Laboratory [address] [address] Consuelo Guerrero, DO Encounter for other general examination 03/21/2024 Lab Requisition [facility] Pathology & Laboratory [address] [address] Outr Resulting Lab, Provider from Last 3 [...] Negative 03/21/2024 22:31 EDT [facility] Blood VENOUS BLOOD / Unknown 03/21/2024 13:00 EDT 03/21/2024 21:51 EDT Consuelo Guerrero DO BLOOD BANK TESTS Performing Organization Address [facility] Co de Phone Number [facility] [address] [place] [address] * HAPTOGLOBIN (03/21/2024 13:00 EDT) Haptoglobin 183 32 - 197 mg/dL 03/22/2024 10:25 EDT [facility] Blood VENOUS BLOOD / Unknown 03/21/2024 13:00 EDT 03/21/2024 21:50 EDT Provider Outr Resulting Lab CHEMISTRY & BLOOD GAS ORDERABLES Performing Organization Address [facility]/ZIP Co de Phone Number [facility] [address] [place], [place] [address] * SURGICAL PATHOLOGY (03/21/2024 11:35 EDT) Note to Patient The following pathology results have been interpreted by your pathologist and may be available to you before your health provider has had the opportunity to review them. Please allow time for your provider to receive these results and explore management options, if applicable. 03/24/2024 10:36 EDT [facility] Final Diagnosis A. [...] 9:36 03/24/2024 10:36 EDT [facility] Resident/Estuardo w: Luis Felipe Bragg DO 03/24/2024 10:36 EDT [facility] Performing Lab [facility] 10:36 EDT [facility] Scanned Images 03/24/2024 10:36 EDT [facility] Tissue POLYP OF [...] EDT Consuelo Guerrero DO PATHOLOGY ORDERABLES [facility] [address] [place] [address] from Last 3 Months Care Teams Shore Worker Relationship Specialty Start Date End Date Ashley Chavez ARNP [address] [place] [address] PCP - General 07/11/10
--- OUTSIDE RECORDS SUMMARY | 2024-06-06 13:58 | XMS_ITS | Encounter Summary ---
Author Organization [facility] Address [address] [place] [address] Care Team Providers Care Snaker Name Role Phone Unavailable Primary Care Provider Unavailabl e Encounter Details Date Type Department Care Team (Late st Contact Info) Description 07/08/2010 Results Only [facility] Non-Invasive Cardiology - [facility] [address] [place] [address] Ashley Chavez, WILLIAM [address] [place] [address] Social History Tobacco Use Types Packs/Day Years [...] ? PURNIMA THACKER ? Accession #: ? [id number] ? : ? 1955 (Age: 54) ??F [...] Ashley THOMAS PATHOLOGY ORDERABLES PAUL ARELLANO [address] [place] [address] documented in this encounter Visit Diagnoses Not on filedocumented in this encounter
--- OUTSIDE RECORDS SUMMARY | 2024-06-06 13:58 | XMS_ITS | Encounter Summary ---
Author Organization [facility] Address [address] [place] [address] Care Team Providers Care Lockstitch Binder Name Role Phone Scott Ashley WILLIAM Primary Care Provider [phone] Encounter Details Date Type Department Care Team (Late st Contact Info) Description 11/10/2013 Results Only [facility] [phone] Jeni Laird, ETL MANAGER [address] [place], [place] [phone] Social History Tobacco Use Types Packs/Day Years [...] ? PURNIMA THACKER ? Accession #: ? [id number] : ? 1955 (Age: 58) ??F ?Collect Date: ? 11/10/2013 Location: ? [facility] ? Receive Date: ? 11/14/2013 Provider: ?JENI LAIRD ETL MANAGER Copy to: ? Specimen/Source: ?Pap Test, Endocervix, [...] Report PAUL ARELLANO 11/10/2013 11/14/2013 Jeni Laird ETL MANAGER PATHOLOGY ORDERAB LES Performing Organization Address City/State/[facility] Co de Phone Number PAUL ARELLANO [address] [place] [address] documented in this encounter Visit Diagnoses Not on filedocumented in this encounter Care Teams Lockstitch Binder Relationship Specialty Start Date End Date Ashley Chavez ARNP [address] [place] [address] PCP - General 07/11/10 documented as of this encounter
--- OUTSIDE RECORDS SUMMARY | 2024-06-06 13:58 | XMS_ITS | Encounter Summary ---
Author Organization [facility] Address [address] [place] [address] Care Team Providers Care Multilith Operator Name Role Phone Unavailable Primary Care Provider Unavailabl e Encounter Details Date Type Department Care Team (Late st Contact Info) Description 07/08/2010 10:55 EST - 07/08/2010 10:56 EST Hospital Encounter [facility] - Other [address] [place] [address] Ashley Chavez, WILLIAM [address] [place] [address] Discharge Disposition: Home or Self Care Social [...]
--- OUTSIDE RECORDS SUMMARY | 2024-06-06 13:58 | XMS_ITS | Encounter Summary ---
Author Organization [facility] Address [address] [place] [address] Care Team Providers Care Boiler Plant Worker Name Role Phone Ashley Chavez Primary Care Provider [phone] Encounter Details Date Type Department Care Team (Late st Contact Info) Description 03/21/2024 Lab Requisition [facility] Pathology & Laboratory Medicine - [address] [address] Outr Resulting Lab, Provider Social History Tobacco [...] 32 - 197 mg/dL 03/22/2024 10:25 EDT [facility] Blood VENOUS BLOOD / Unknown 03/21/2024 13:00 EDT 03/21/2024 21:50 EDT Provider Outr Resulting Lab CHEMISTRY & BLOOD GAS ORDERABLES [facility] [address] [place] [address] documented in this encounter Visit Diagnoses Not on filedocumented in this encounter Care Teams Boiler Plant Worker Relationship Specialty Start Date End Date Ashley Chavez ARNP [address] [place] [address] PCP - General 07/11/10 documented as of this encounter
--- OUTSIDE RECORDS SUMMARY | 2024-06-06 13:58 | XMS_ITS | Encounter Summary ---
Author Organization [facility] Address [address] [place] [address] Care Team Providers Care Chlorine Plant Operator Name Role Phone Unavailable Primary Care Provider Unavailabl e Encounter Details Date Type Department Care Team (Late st Contact Info) Description 04/20/2005 Results Only [facility] - Maple conversion [address] [place] [address] Ziggy Valiente MD [address] [place] [id number] Social History Tobacco Use Types Packs/Day Years [...] ? PURNIMA THACKER ? Accession #: ? [id number] ? : ? 1955 (Age: 49) ??F [...] with endoscopic appearance is recommended. (Dr. Chino)/[facility] Document reviewed and electronically signed by: [...] is entirely submitted in one cassette. ??(Arabella Santos)/[facility] End of Report PAUL ARELLANO 04/20/2005 04/21/2005 15: 04 EDT Ziggy Valiente MD PATHOLOGY ORDERABLES PAUL ARELLANO [address] [place] [address] documented in this encounter Visit Diagnoses Not on filedocumented in this encounter
--- OUTSIDE RECORDS SUMMARY | 2024-06-06 13:58 | XMS_ITS | Encounter Summary ---
Author Organization [facility] Address [address] [place] [address] Care Team Providers Care Asbestos Wire Finisher Name Role Phone Scott Ashley WILLIAM Primary Care Provider [phone] Encounter Details Date Type Department Care Team (Late st Contact Info) Description 05/12/2019 Results Only [facility] [phone] Nadira Gregorio MD [address] [place] [phone] Social History Tobacco Use Types Packs/Day [...] ? PURNIMA THACKER ? Accession #: ? [id number] ? : ? 1955 (Age: 63) ??F ? Collect Date: ? 05/12/2019 ? Location: ? [facility] ? Receive Date: ? 05/12/2019 ? Provider: NADIRA GREGORIO MD Copy to: [employer]ELOP[employer] ? Final Pathologic Diagnosis: COLON, CECUM, POLYP, [...] (ASCP) 05/12/2019 6:08 PM End of Report [facility] 05/12/2019 16:0 3 EDT 05/12/2019 16:03 EDT Nadira Gregorio MD PATHOLOGY ORDERABLES [facility] [address] [place] [address] documented in this encounter Visit Diagnoses Not on filedocumented in this encounter Care Teams Asbestos Wire Finisher Relationship Specialty Start Date End Date Ashley Chavez ARNP [address] [place] [address] PCP - General 07/11/10 documented as of this encounter
--- OUTSIDE RECORDS SUMMARY | 2024-06-06 13:58 | XMS_ITS | Encounter Summary ---
Author Organization [facility] Address [address] [place] [address] Care Team Providers Care Agency Sales Management Assistant Name Role Phone Scott, Ashley WILLIAM Primary Care Provider [phone] Encounter Details Date Type Department Care Team (Late st Contact Info) Description 12/23/2016 Results Only [facility] [phone] Deborah Quiroga, FORK OPERATOR [address] [place] [phone] Social History Tobacco Use Types Packs/Day Years [...] ? PURNIMA THACKER ? Accession #: ? [id number] ? : ? 1955 (Age: 61) ??F ?Collect Date: ? 12/23/2016 ? Location: ? [facility] ? Receive Date: ? 12/25/2016 ? Provider: DEBORAH QUIROGA AUTOMATIC DRILLER AND REAMER Copy to: ? Final Report SPECIMEN ADEQUACY ? Satisfactory for Evaluation - transformation zone component present GENERAL CATEGORIZATION ? Negative for Intraepithelial Lesion or Malignancy ?? Last Menstrual Period: years Specimen/Source: ??Pap Test, Cervix, ThinPrep Imaging System with manual evaluation Document reviewed and electronically signed by: ? Monica Cason [facility](ASCP) ? Report ??Date: 01/06/2017 09:11 HPV with Pap Test ? Date Ordered: ? 01/06/2017 ? Status: ?? Signed Out ?Date Complete: ? 01/07/2017 ? By: ??System Interface ? Date Reported: ? 01/07/2017 ? Interpretation RESULT: Negative for HPV. No E6 or E7 mRNA is detected from HPV types 16,18,31,33,35, 39,45,51,52,56,58, 59,66, and 68 by supervisor cold rolling mediated amplification. Comments Document reviewed and electronically signed by: ? System Interface ? Report date: 01/07/2017 By the signature above, the attending physician certifies that he/she has personally conducted a gross and/or microscopic examination of the described specimens and rendered or confirmed the above diagnosis. End of Report [facility] 12/23/2016 12/25/2016 Deborah Quiroga FORK OPERATOR PATHOLOGY ORDERABLES [facility] [address] [place] [address] documented in this encounter Visit Diagnoses Not on filedocumented in this encounter Care Teams Agency Sales Management Assistant Relationship Specialty Start Date End Date Ashley Chavez ARNP [address] [place] [address] PCP - General 07/11/10 documented as of this encounter
--- OUTSIDE RECORDS SUMMARY | 2024-06-06 13:58 | XMS_ITS | Encounter Summary ---
Author Organization [facility] Address [address] [place] [address] Care Team Providers Care Business Strategy Manager Name Role Phone Ashley Chavez Primary Care Provider [phone] Encounter Details Date Type Department Care Team (Latest Contact Info) Description 05/12/2019 13:18 EDT - 05/12/2019 23:59 EDT Hospital Encounter [address] [address] Unknown, Provider, MD Discharge Disposition: Home or Self Care Social History Tobacco Use Types Packs/Day Years Used Date Smoking Tobacco: Never Assessed Sex and Gender Information Value Date Recorded Sex Assigned at Not on file Gender Identity Not on file Sexual Orientation Not on file documented as of this encounter Discharge Disposition Disposition Code Departure Means Destination Home or Self Assisted documented in this encounter Plan of Treatment Not on file documented as of this encounter Visit Diagnoses Not on filedocumented in this encounter Care Teams Business Strategy Manager Relationship Specialty Start Date End Date Ashley Chavez ARNP [address] [place] [address] PCP - General 07/11/10 documented as of this encounter
--- OUTSIDE RECORDS SUMMARY | 2024-06-06 13:58 | XMS_ITS | Encounter Summary ---
Author Organization [facility] Address [address] [place] [address] Care Team Providers Care Programmer Numerical Control Name Role Phone Ashley Chavez Primary Care Provider [phone] Encounter Details Date Type Department Care Team (Late st Contact Info) Description 04/29/2022 Lab Requisition [facility] Pathology & Laboratory Medicine - [address] [address] Outr Resulting Lab, Provider Social History Tobacco [...] 1.6 <20.0 Units 04/30/2022 12:23 EDT [facility] [...] ORDERABLES Performing Organization Address [facility] de Phone Number [facility] [address] [place] [address] * SSA ANTIBODIES BY DOMO (04/29/2022 7:51 EDT) SSA Antibody 1.5 <20.0 Units 04/30/2022 12:22 EDT [facility] [...] SEROLOGY ORDERABLES Performing Organization Address [facility] de Phone Number [facility] [address] [place] [address] documented in this encounter Visit Diagnoses Not on filedocumented in this encounter Care Teams Programmer Numerical Control Relationship Specialty Start Date End Date Ashley Chavez ARNP [address] [place] [address] PCP - General 07/11/10 documented as of this encounter
--- OUTSIDE RECORDS SUMMARY | 2024-06-06 13:58 | XMS_ITS | Encounter Summary ---
Author Organization [facility] Address [address] [place] [address] Care Team Providers Care Business Intelligence Reporting Analyst Name Role Phone Unavailable Primary Care Provider Unavailabl e Encounter Details Date Type Department Care Team (Late st Contact Info) Description 03/24/2007 Results Only [facility] Non-Invasive Cardiology - [facility] [address] [place], [place] [address] Ashley Chavez ARNP [address] [place] [address] Social History Tobacco Use Types Packs/Day Years [...] ? PURNIMA THACKER ? Accession #: ? [id number] : ? 1955 (Age: 51) ??F ?Collect Date: ? 03/24/2007 Location: ? [facility] ? Receive Date: ? 03/28/2007 Provider: ?ASHLEY THOMAS Copy to: ? Specimen/Source: ?ThinPrep Pap Test, Endocervix, processed on [employer] Wireless ThinPrep Imaging System, with manual evaluation Last [...] Ashley THOMAS PATHOLOGY ORDERABLES PAUL ARELLANO [address] [place] [address] documented in this encounter Visit Diagnoses Not on filedocumented in this encounter
--- OUTSIDE RECORDS SUMMARY | 2024-06-06 13:58 | XMS_ITS | Encounter Summary ---
Author Organization [facility] Address [address] [place] [address] Care Team Providers Care Grill Chef Name Role Phone Unavailable Primary Care Provider Unavailabl e Encounter Details Date Type Department Care Team (Late st Contact Info) Description 03/24/2007 11:06 EDT - 03/24/2007 11:59 EDT Hospital Encounter [facility] - Other [address] [place] [address] Ashley Chavez ARNP [address] [place] [address] Discharge Disposition: Home or Self Care Social [...]
--- OUTSIDE RECORDS SUMMARY | 2024-06-06 13:58 | XMS_ITS | Encounter Summary ---
Author Organization [facility] Address [address] [place] [address] Care Team Providers Care Documentation Billing Clerk Name Role Phone Ashley Chavez Primary Care Provider [phone] Encounter Details Date Type Department Care Team (Late st Contact Info) Description 01/07/2023 Lab Requisition [facility] Pathology & Laboratory Medicine - [address] [address] Outr Resulting Lab, Provider Social History Tobacco [...] 56.2 55.8 - 66.1 % 01/08/2023 11:28 [facility] Albumin g/dL 3.9 3.6 - 5.2 g/dL 01/08/2023 11:28 [facility] Alpha-1 % 5.1(H) 2.9 - 4.9 % 01/08/2023 11:28 [facility] Alpha-1 g/dL 0.40 0.15 - 0.40 g/dL 01/08/2023 11:28 [facility] Alpha-2 % 7.0(L) 7.1 - 11.8 % 01/08/2023 11:28 [facility] Alpha-2 g/dL 0.50 0.50 - 1.00 g/dL 01/08/2023 11:28 [facility] Beta % 12.7 8.4 - 13.1 % 01/08/2023 11:28 [facility] Beta g/dL 0.90 0.60 - 1.20 g/dL 01/08/2023 11:28 [facility] Gamma % 19.0(H) 11.1 - 18.8 % 01/08/2023 11:28 [facility] Gamma g/dL 1.30 0.60 - 1.60 g/dL 01/08/2023 11:28 [facility] SPEP Comment No apparent monoclonal protein seen on serum electrophoresis 01/08/2023 11:28 [facility] Comment:See scanned/suppleme ntary report. Total Protein 6.9 6.3 - 8.2 g/dL 01/08/2023 11:28 [facility] Blood VENOUS BLOOD / Unknown 01/06/2023 14:40 EDT 01/07/2023 17:37 EDT Provider Outr Resulting Lab CHEMISTRY & BLOOD GAS ORDERABLES Performing Organization Address City/State/[facility] Co de Phone Number [facility] [address] [place] [address] * PROTEIN, TOTAL (01/06/2023 14:40 EDT) Blood VENOUS BLOOD / Unknown 01/06/2023 14:40 EDT 01/07/2023 17:37 EDT Provider Outr Resulting Lab CHEMISTRY & BLOOD GAS ORDERABLES Performing Organization Address [facility] Co de Phone Number [facility] [address] [place] [address] * (ABNORMAL) EXTRACTABLE NUCLEAR ANTIGEN PANEL (01/06/2023 14:40 EDT) SSA Antibody 1.3 <20.0 Units 01/08/2023 15:42 EDT [facility] Comment: ? Negative: <20.0 [...] Antibody 1.5 <20.0 Units 01/08/2023 15:42 EDT [facility] Comment: ? Negative: <20.0 [...] Antibody 15.3 <20.0 Units 01/08/2023 15:42 EDT [facility] Comment: ? Negative: <20.0 Units ? Weak Positive: 20.0 - 39.9 Units ? Moderate Positive: 40.0 - 80.0 Units ? Strong Positive: >80.0 Units Results were obtained with the goOutMapVA QUANTA Lite Sm DOMO. ??Sm values obtained with different manufacturers' assay methods may not be used interchangeably. ??The magnitude of the reported IgG levels cannot be correlated to an endpoint titer. DIGITAL TRAFFIC COORDINATOR Antibody 149.1(H) <20.0 Units 01/08/2023 15:42 EDT [facility] Comment: ? Negative: <20.0 Units ? Weak Positive: 20.0 - 39.9 Units ? Moderate Positive: 40.0 - 80.0 Units ? Strong Positive: >80.0 Units Results were obtained with the Therapeutic Proteinsva Quanta Lite DIGITAL TRAFFIC COORDINATOR DOMO. DIGITAL TRAFFIC COORDINATOR values obtained with different adjunct professor of voice's assay methods may not be used interchangeaby. ??The magnitude of the reported IgG levels cannot be be correlated to an endpoint titer. A positive result in the Quanta Lite DIGITAL TRAFFIC COORDINATOR DOMO indicates the presence of antibodies reactive with the DIGITAL TRAFFIC COORDINATOR/Sm complex but cannot distinguish between anti-Sm and anti-DIGITAL TRAFFIC COORDINATOR activity. Blood VENOUS BLOOD / Unknown 01/06/2023 14:40 EDT 01/07/2023 17:37 EDT Provider Outr Resulting Lab IMMUNOLOGY A ND SEROLOGY ORDERABLES [facility] [address] [place] [address] * (ABNORMAL) ANTI NUCLEAR AB (FRANCISCO), IFA (01/06/2023 14:40 EDT) FRANCISCO Interpretation Positive(A) Negative 01/08/2023 15:22 EDT [facility] Comment: Result is equal to or greater than 1:5120. For titers greater than or equal to 1:160 (except the centromere, nucleolar, and dense fine speckled patterns) it is recommended that specific, follow-up autoantibody testing (such as for dsDNA and Extractable Nuclear Antigens) be performed on all diffuse and/or speckled patterns. FRANCISCO Titer and Pattern 1 1:5120 Speckled 01/08/2023 15:22 EDT [facility] Blood VENOUS BLOOD / Unknown 01/06/2023 14:40 EDT 01/07/2023 17:37 EDT Narrative [facility] - 01/08/2023 15:22 EDT Results were obtained with the INOVA NOVA Lite HEp-2 FRANCISCO Kit by indirect immunofluorescence. Provider Outr Resulting Lab IMMUNOLOGY A ND SEROLOGY ORDERABLES Performing Organization Address City/State/[facility] Co de Phone Number [facility] [address] [place] [address] documented in this encounter Visit Diagnoses Not on filedocumented in this encounter Care Teams Documentation Billing Clerk Relationship Specialty Start Date End Date Ashley Chavez ARNP [address] [place] [address] PCP - General 07/11/10 documented as of this encounter
--- OUTSIDE RECORDS SUMMARY | 2024-06-06 13:59 | XMS_ITS | Encounter Summary ---
[place] [address] Care Team Providers Care Sales Donor Recruitment Representative Name Role Phone Magdalena Acosta MD Primary Care Provider [phone] Reason for Visit * Reason Onset Date Comments Pre Procedure Call 03/01/2024 DAPT hold for EGD and colo? Encounter Details Date Type Department Care Team (Late st Contact Info) Description 03/01/2024 Telephone Cardiology at [address] [phone] Cynthia Monsalve RN Pre Procedure Call (DAPT hold for EGD and colo?) Social History Tobacco Use Types Packs/Day Years Used Date Smoking Tobacco: Never Smokeless Tobacco: Never Alcohol Use Standard Drinks/Week Comments No 0 (1 standard drink = 0.6 oz pur e alcohol) none [facility] Inpatient Questions Answer Date [...] safe. Jay Message above left with Yenifer (emergency veterinarian), who would be leaving this note in patient's chart for providers to schedule patient. No further questions or needs at this time. This nurse stated, note will be placed regarding this call in our chart for patient. Kezia Whitney RN, BSN Ambulatory Cardiology Clinic, [facility] [phone] * Telephone Encounter - Cynthia Monsalve RN - 03/01/2024 2:09 PM EDT Nurse Veronica from [facility] called, requesting a hold on ASA and/or Plavix for the patient's anticipated EGD and colonoscopy. -Cynthia Monsalve RN documented in this encounter Plan of Treatment Upcoming Encounters Date Type Department Care Team (Late st Contact Info) Description 06/23/2024 2:00 PM EST Office Visit Hematology [place] [phone] Markel Borjas MD [facility] [address] HEMATOLOGY [place] [address] 11/02/2024 12:00 PM EDT Appointment [place] [phone] 11/02/2024 1:00 PM EDT Office [place] [phone] Magdalena Peralta MD [facility] [place] [address] 03/01/2025 4:15 PM EDT Office Visit Dermatology at [address] [place] [address] Marek Bonilla MD [address], [place] [address] documented as of this encounter Visit Diagnoses Not on filedocumented in this encounter Care Teams Sales Donor Recruitment Representative Relationship Specialty Start Date End Date Magdalena Acosta MD [address] [place] [address] PCP - General Family Medicine 02/05/23 documented as of this encounter
--- OUTSIDE RECORDS SUMMARY | 2024-06-06 13:59 | XMS_ITS | Encounter Summary ---
[place] [address] Care Team Providers Care Ocular Care Technician Name Role Phone Magdalena Acosta MD Primary Care Provider [phone] Reason for Referral * Consultation (Routine) - Closed Specialty Diagnoses / Procedures Referred By Contac t Referred To Contact Hematology and Oncology Diagnoses Anemia, unspecified type Consuelo Guerrero DO [address] [place] [address] [address] [place] [address] [facility] [address] [place] [address] Referral ID Status Reason Start Date Expiration Date V isits Requested Visits Authorized [id number] Closed Consult, Test & Treat 04/11/2024 04/11/2025 1 1 Encounter Details Date Type Department Care Team (Late st Contact Info) Description 04/11/2024 Transcribe Orders eDH Incoming Referrals [phone] Consuelo Guerrero DO [address] [place] [address] [address] [place] [address] Anemia, unspecified type Social History [...] EST Office Visit Hematology [place] [address] Markel Borjas MD [facility] [address] [place] [address] 11/02/2024 12:00 PM EDT Appointment Pulmonology at [place] [address] 11/02/2024 1:00 PM EDT Office Visit Rheumatology at [place] [address] Magdalena Peralta MD [facility] [place] [address] 03/01/2025 4:15 PM EDT Office Visit Dermatology at [address] [place] [address] Marek Bonilla MD [address], [place] [address] Scheduled Referrals Name Type Priority Associated Diagnoses Orde r Schedule Referral to Hematology and Oncology Outpatient Referral Routine Anemia, unspecified type Ordered: 04/11/2024 documented as of this encounter Visit Diagnoses Diagnosis Anemia, unspecified type documented in this encounter Care Teams Ocular Care Technician Relationship Specialty Start Date End Date Magdalena Acosta MD [address] [place] [address] PCP - General Family Medicine 02/05/23 documented as of this encounter
--- OUTSIDE RECORDS SUMMARY | 2024-06-06 13:59 | XMS_ITS | Encounter Summary ---
Author Organization [facility] Address [facility] [place] [address] Care Team Providers Care Forepart Reducer Name Role Phone Magdalena Acosta MD Primary Care Provider [phone] Encounter Details Date Type Department Care Team [...] EST Office Visit Hematology [place] [address] Markel Borjas MD [facility] [address] [place] [address] 11/02/2024 12:00 PM EDT Appointment [place] [phone] 11/02/2024 1:00 PM EDT Office [place] [address] Magdalena Peralta MD [facility] [place] [address] 03/01/2025 4:15 PM EDT Office Visit Dermatology at [place] [address] [facility] [place] [phone] Marek Bonilla MD [address], [place] [address] documented as of this encounter Visit Diagnoses Not on filedocumented in this encounter Care Teams Forepart Reducer Relationship Specialty Start Date End Date Magdalena Acosta MD [address] [place] [address] PCP - General Family Medicine 02/05/23 documented as of this encounter
--- OUTSIDE RECORDS SUMMARY | 2024-06-06 13:59 | XMS_ITS | Encounter Summary ---
Author Organization [facility] Address [facility] [place] [address] Care Team Providers Care Shoe Reconditioner Name Role Phone Magdalena Acosta MD Primary Care Provider [phone] Encounter Details Date Type Department Care Team [...] EST Office Visit [place] [address] Markel Borjas MD [facility] [address] HEMAT[place] [address] 11/02/2024 12:00 PM EDT [place] [address] 11/02/2024 1:00 PM EDT Office [place] [address] Magdalena Peralta MD [facility] [place] [address] 03/01/2025 4:15 PM EDT Office Visit Dermatology at [place] [address] [facility] [address] Marek Bonilla MD [address] [place] [address] documented as of this encounter Visit Diagnoses Not on filedocumented in this encounter Care Teams Shoe Reconditioner Relationship Specialty Start Date End Date Magdalena Acosta MD [address] [place] [address] PCP - General Family Medicine 02/05/23 documented as of this encounter
--- OUTSIDE RECORDS SUMMARY | 2024-06-06 13:59 | XMS_ITS | Encounter Summary ---
[place] [address] Care Team Providers Care Castings Trimmer Name Role Phone Magdalena Acosta MD Primary Care Provider [phone] Reason for Visit * Reason Comments Annual Exam Encounter Details Date Type Department Care Team (Late st Contact Info) Description 02/22/2024 4:15 PM EDT Office Visit Dermatology at [address] [phone] Marek Bonilla MD [address] [facility] A DERMATOLOGY [place], [place] [phone] Seborrheic keratosis; Rosacea; Nevus Social History Tobacco [...] cutaneous and ocular 3. Previously told by link and link knitting machine operator that she had corneal tears [...] EST Office Visit [place] [address] Markel Borjas MD [facility] [address] [place] [address] 11/02/2024 12:00 PM EDT [place]oint[place] [address] 11/02/2024 1:00 PM EDT Office [place] [address] Magdalena Peralta MD [facility] [place] [address] 03/01/2025 4:15 PM EDT Office Visit Dermatology at [address] [place] [address] Marek Bonilla MD [address], [place] [place] [address] documented as of this encounter Visit Diagnoses Diagnosis Seborrheic keratosis Other seborrheic keratosis Rosacea Nevus Benign neoplasm of skin, site unspecified documented in this encounter Care Teams Castings Trimmer Relationship Specialty Start Date End Date Magdalena Acosta MD [address] [place] [address] PCP - General Family Medicine 02/05/23 documented as of this encounter
--- OUTSIDE RECORDS SUMMARY | 2024-06-06 13:59 | XMS_ITS | Encounter Summary ---
Author Organization [facility] Address [facility] [place] [address] Care Team Providers Care Bus Company Manager Name Role Phone Magdalena Acosta MD Primary Care Provider [phone] Encounter Details Date Type Department Care Team (Late st Contact Info) Description 06/01/2024 10:00 AM EDT Office [place] [address] Magdalena Peralta MD [facility] [address] [place] [address] Mixed connective tissue disease Social History Tobacco Use Types Packs/Day Years Used Date Smoking Tobacco: Never Smokeless Tobacco: Never Alcohol Use Standard Drinks/Week Comments No 0 (1 standard drink = 0.6 oz pur e alcohol) none [facility] Inpatient Questions Answer Date Recorded Does [...] through Care Everywhere. * Knee Arthritis: Exercises (Somali) documented in this encounter Progress Notes * [...] 1:5120 speckled; VIC negative; Myositis panel with SKIMMER SCOOP OPERATOR ab 149.1 (positive); Anti U1RNP IgG [...] that osteoporosis is not an indication for superintendent marine oil terminal systemic steroid therapy as it is not [...] Dr. Roma Peralta MD Rheumatology Fellow Pager: [phone] * Kuldeep Brandon MD - 06/01/2024 10:00 AM EDT The patient's history was reviewed, and I interviewed and examined the patient with Dr. Peralta, the rheumatology fellow. History of present illness and diagnosis discussed. Chief complaint and review of systems reviewed. Physical exam findings, serologic testing, and diagnostic imaging reviewed. I agree with her summary, findings, diagnostic and therapeutic plans. Kuldeep Brandon MD Staff Tag Clerk documented in this encounter Plan of Treatment Upcoming Encounters Date Type Department Care Team (Late st Contact Info) Description 06/23/2024 2:00 PM EST Office Visit [place]ematology [place] [address] Markel Borjas MD [facility] [address] HEMATOLOGY [place] [address] 11/02/2024 12:00 PM EDT [place]oint[place] [address] 11/02/2024 1:00 PM EDT Office [place] [address] Magdalena Peralta MD [facility] [place] [address] 03/01/2025 4:15 PM EDT Office Visit Dermatology at [place] [address] [place] [address] Marek Bonilla MD [address], [place] [address] Scheduled Orders Name Type Priority Associated Diagnoses Orde r Schedule Common Pulmonary Function Test PFT Routine Mixed connective tissue disease Expected: 10/31/2024, Expires: 06/01/2025 documented as of this encounter Visit Diagnoses Diagnosis Mixed connective tissue disease Other specified diffuse disease of connective tissue documented in this encounter Care Teams Bus Company Manager Relationship Specialty Start Date End Date Magdalena Acosta MD [address] [place] [address] PCP - General Family Medicine 02/05/23 documented as of this encounter
--- OUTSIDE RECORDS SUMMARY | 2024-06-06 13:59 | XMS_ITS | Encounter Summary ---
Author Organization [facility] Address [facility] [place] [address] Care Team Providers Care Sponge Buffer Name Role Phone Magdalena Acosta MD Primary Care Provider [phone] Encounter Details Date Type Department Care Team [...] EST Office Visit Hematology [place] [address] Markel Borjas MD [facility] [address] [place] [address] 11/02/2024 12:00 PM EDT Appoint[place] [address] 11/02/2024 1:00 PM EDT Office [place] [address] Magdalena Peralta MD [facility] [place] [address] 03/01/2025 4:15 PM EDT Office Visit Dermatology at [place] [address] [facility] [place] [address] Marek Bonilla MD [address], [place] [address] documented as of this encounter Visit Diagnoses Not on filedocumented in this encounter Care Teams Sponge Buffer Relationship Specialty Start Date End Date Magdalena Acosta MD [address] [place] [address] PCP - General Family Medicine 02/05/23 documented as of this encounter
--- OUTSIDE RECORDS SUMMARY | 2024-06-06 13:59 | XMS_ITS | Encounter Summary ---
Author Organization [facility] [place] [address] Care Team Providers Care Loading Unit Operator Powder Charging Name Role Phone Magdalena Acosta MD Primary Care Provider [phone] Encounter Details Date Type Department Care Team (Late st Contact Info) Description 07/08/2023 10:15 AM EST Office Visit Cardiology at [address] [phone] Severe aortic stenosis Social History Tobacco Use Types Packs/Day Years Used Date Smoking Tobacco: Never Smokeless Tobacco: Never Alcohol Use Standard Drinks/Week Comments No 0 (1 standard drink = 0.6 oz pur e alcohol) none [facility] Inpatient Questions Answer Date Recorded Does [...] EST Office Visit Hematology [place] [address] Markel Borjas MD [facility] [address] [place] [address] 11/02/2024 12:00 PM EDT Appointment [place] [address] 11/02/2024 1:00 PM EDT Office [place] [address] Magdalena Peralta MD [facility] DR RHEUMATOLOGY DEPT [place], [place] [address] 03/01/2025 4:15 PM EDT Office Visit Dermatology at [place] [address] [facility] [address] Marek Bonilla MD [address] [facility] [place] [address] documented as of this encounter Procedures Procedure [...] (Bezet) 449 ms MUSE SYSTEM Calculated P [place] 66 degrees MUSE SYSTEM Calculated R [place] 60 degrees MUSE SYSTEM Calculated T [place] 53 degrees MUSE SYSTEM INTERPRETATION Normal sinus rhythm Minimal voltage criteria for LVH, may be normal variant ( Sokolow-Orozco ) ST & T wave abnormality, consider lateral ischemia ??vs. repolarization abnormality from LVH Abnormal ECG When compared with ECG of 13-MAY-2023 09:22, Premature ventricular complexes are no longer Present Minimal criteria for Septal infarct are no longer Present Confirmed by Maxx Best ([id number]) on 07/09/2023 10:07:22 AM MUSE SYSTEM 07/08/2023 10:2 7 AM EST 07/09/2023 10:07 AM EST Brody Kaplan APRN ECG ORDERABLES MUSE SYSTEM documented in this encounter Visit Diagnoses Diagnosis Severe aortic stenosis Aortic valve disorders documented in this encounter Care Teams Loading Unit Operator Powder Charging Relationship Specialty Start Date End Date Magdalena Acosta MD [address] [place] [address] PCP - General Family Medicine 02/05/23 documented as of this encounter
--- OUTSIDE RECORDS SUMMARY | 2024-06-06 13:59 | XMS_ITS | Encounter Summary ---
Author Organization [facility] Address [facility] [place] [address] Care Team Providers Care Utilization Management Rn Name Role Phone Magdalena Acosta MD Primary Care Provider [phone] Encounter Details Date Type Department Care Team [...] EST Office Visit [place] [address] Markel Borjas MD [facility] [address] HEMATOLOGY [place] [address] 11/02/2024 12:00 PM EDT [place] [address] 11/02/2024 1:00 PM EDT [place] [address] Magdalena Peralta MD [facility] [address] [place] [address] 03/01/2025 4:15 PM EDT Office Visit Dermatology at [place] [address] [facility] [place] [address] Marek Bonilla MD [address], [place] Katherine [place] [address] documented as of this encounter Visit Diagnoses Not on filedocumented in this encounter Care Teams Utilization Management Rn Relationship Specialty Start Date End Date Magdalena Acosta MD [address] [place] [address] PCP - General Family Medicine 02/05/23 documented as of this encounter
--- OUTSIDE RECORDS SUMMARY | 2024-06-06 13:59 | XMS_ITS | Encounter Summary ---
Author Organization [facility] Address [facility] [place] [address] Care Team Providers Care Centura Technical Lead Senior Developer Name Role Phone Magdalena Acosta MD Primary Care Provider [phone] Encounter Details Date Type Department Care Team [...] EST Office Visit Hematology [place] [address] Markel Borjas MD [facility] [address] [place] [address] 11/02/2024 12:00 PM EDT Appointment [place] [address] 11/02/2024 1:00 PM EDT Office [place] [address] Magdalena Peralta MD [facility] [place] [address] 03/01/2025 4:15 PM EDT Office Visit Dermatology at [place] [address] [facility] [place] [address] Marek Bonilla MD [address], [place] [address] documented as of this encounter Visit Diagnoses Not on filedocumented in this encounter Care Teams Centura Technical Lead Senior Developer Relationship Specialty Start Date End Date Magdalena Acosta MD [address] [place] [address] PCP - General Family Medicine 02/05/23 documented as of this encounter
--- OUTSIDE RECORDS SUMMARY | 2024-06-06 13:59 | XMS_ITS | Encounter Summary ---
Author Organization [facility] Address [facility] [place] [address] Care Team Providers Care Senior Analytic Consultant Name Role Phone Magdalena Acosta MD Primary Care Provider [phone] Encounter Details Date Type Department Care Team [...] EST Office Visit [place] [address] Markel Borjas MD [facility] [address] HEMATOLOGY [place] [address] 11/02/2024 12:00 PM EDT [place] [address] 11/02/2024 1:00 PM EDT Office [place] [address] Magdalena Peralta MD [facility] [place] [address] 03/01/2025 4:15 PM EDT Office Visit Dermatology at [place] [address] [facility] [place] [address] Marek Bonilla MD [address], [address] [place] [address] documented as of this encounter Visit Diagnoses Not on filedocumented in this encounter Care Teams Senior Analytic Consultant Relationship Specialty Start Date End Date Magdalena Acosta MD [address] [place] [address] PCP - General Family Medicine 02/05/23 documented as of this encounter
--- OUTSIDE RECORDS SUMMARY | 2024-06-06 13:59 | XMS_ITS | Encounter Summary ---
Author Organization [facility] Address [facility] [place] [address] Care Team Providers Care Respiratory Care Faculty Name Role Phone Magdalena Acosta MD Primary Care Provider [phone] Encounter Details Date Type Department Care Team [...] EST Office Visit [place] [address] Markel Borjas MD [facility] [address] [place] [address] 11/02/2024 12:00 PM EDT Appoint[place] [address] 11/02/2024 1:00 PM EDT Office [place] [address] Magdalena Peralta MD [facility] [place] [address] 03/01/2025 4:15 PM EDT Office Visit Dermatology at [place] [address] [facility] [place] [address] Marek Bonilla MD [address], [place] [place] [address] documented as of this encounter Visit Diagnoses Not on filedocumented in this encounter Care Teams Respiratory Care Faculty Relationship Specialty Start Date End Date Magdalena Acosta MD [address] [place] [address] PCP - General Family Medicine 02/05/23 documented as of this encounter
--- OUTSIDE RECORDS SUMMARY | 2024-06-06 13:59 | XMS_ITS | Encounter Summary ---
Author Organization [facility] [place] [address] Care Team Providers Care Pressure Vessel Inspector Name Role Phone Magdalena Acosta MD Primary Care Provider [phone] Encounter Details Date Type Department Care Team (Late st Contact Info) Description 12/02/2023 11:15 AM EDT Office [place] [address] Magdalena Peralta MD [facility] [place] [address] Mixed connective tissue disease Social History Tobacco [...] 1:5120 speckled; VIC negative; Myositis panel with GLUING MACHINE OFFBEARER ab 149.1 (positive); Anti U1RNP IgG 119; [...] questions that she sent via [facility] ahead of her visit, which we [...] exposure. She has an appointment with her High School Guidance Counselor scheduled in January. (Dr Bonilla in [place]) ROS (positives in bold): Gen: no fevers, [...] but I encouraged her to contact her High School Guidance Counselor to see if she could have her [...] Dr. Tanisha Peralta MD Rheumatology Fellow Pager: [phone] * Federico Yee MD - 12/02/2023 11:15 [...] EST Office Visit Hematology and Oncology at [place] [phone] Markel Borjas MD [facility] [address] [place] [address] 11/02/2024 12:00 PM EDT Appointment Pulmonology at [place] [address] 11/02/2024 1:00 PM EDT Office Visit Rheumatology at [place] [address] Magdalena Peralta MD [facility] [place] [address] 03/01/2025 4:15 PM EDT Office Visit Dermatology at [place] [address] [facility] [place] [address] Marek Bonilla MD [address] [facility] [place] [address] Scheduled Orders Name Type Priority Associated Diagnoses Orde r Schedule EKG 12 Lead ECG Routine Mixed connective tissue disease Expected: 12/02/2023, Expires: 06/03/2024 documented as of this encounter Visit Diagnoses Diagnosis Mixed connective tissue disease Other specified diffuse disease of connective tissue documented in this encounter Care Teams Pressure Vessel Inspector Relationship Specialty Start Date End Date Magdalena Acosta MD [address] [place] [address] PCP - General Family Medicine 02/05/23 documented as of this encounter
--- OUTSIDE RECORDS SUMMARY | 2024-06-06 13:59 | XMS_ITS | Encounter Summary ---
Author Organization Count Includes [facility] Address [facility] Erika [facility] [place] [address] Care Team Providers Care Mid Level Net Developer Name Role Phone Magdalena Acosta MD Primary Care Provider [phone] Encounter Details Date Type Department Care Team (Latest Contact Info) Description 07/08/2023 12:35 PM EST Laboratory Appointment Lab 3L [place] [address] S/P TAVR (transcatheter aortic valve [...] Office Visit Hematology [place] [address] Markel Borjas MD [facility] [address] HEMATOLOGY [place] [address] 11/02/2024 12:00 PM EDT Appointment [place] [address] 11/02/2024 1:00 PM EDT Office [place] [address] Magdalena Peralta MD [facility] [place] [address] 03/01/2025 4:15 PM EDT Office Visit Dermatology at [place] [address] [place] [address] Marek Bonilla MD [address], [address] [place] [address] documented as of this encounter Procedures Procedure [...] 11:56 AM EST) Neutrophil % 73.2 % [facility] Neutrophil Absolute 3.40 1.70 - 6.10 x10(3)/mc L [facility] Lymph % 16.1 % [facility] Lymphocytes Abs 0.8(L) 0.9 - 3.2 x10(3)/mc L [facility] Monocyte % 9.7 % [facility] Monocyte Abs 0.4 0.3 - 0.9 x10(3)/mc L [facility] Eos % 0.4 % [facility] Eosinophils Abs 0.0 0.0 - 0.4 x10(3)/mc L [facility] Basophil % 0.4 % [facility] Baso Absolute 0.0 0.0 - 0.1 x10(3)/mc L [facility] [...] [facility] HEMATOLOGY ORDERABLE S Performing Organization Address City/State/[facility] Co de Phone Number [facility] [place] [address] * (ABNORMAL) Hemogram (07/08/2023 11:56 AM EST) White Blood Cell 4.6 4.0 - 9.5 x10(3)/ L [facility] Red Blood Cell 3.34(L) 4.00 - 5.21 x10(6)/mc L [facility] Hemoglobin 11.0(L) 11.7 - 15.5 g/dL [...] [facility] [facility] Platelet 166 145 - 357 x10(3)/mc L [facility] RDW Standard Deviation 47.1(H) 37.0 - 46.0 fL [facility] RDW coefficient of variation 13.0 11.5 - 14.1 % [facility] Mean Platelet Volume 9.0 7.6 - 12.9 fL [facility] NRBC% auto 0.0 % [facility] NRBC Absolute 0.000 0.000 - 0.000 x10(3)/mc L [facility] Blood 07/08/2023 11:5 6 AM EST 07/08/2023 12:02 PM EST Narrative Resulting Agency Comment Spec In Lab Minh [facility] HEMATOLOGY ORDERABLE S [facility] [place] [address] * (ABNORMAL) Comprehensive metabolic panel (non-fasting) (07/08/2023 11:56 AM EST) Glucose 93 65 - 199 mg/dL [facility] Comment:Diabetes: >=200 mg/d L plus symptoms Blood Urea Nitrogen 19(H) 8 - 18 mg/dL [facility] Creatinine 0.81 0.70 - 1.20 mg/dL [facility] Sodium 142 135 - [...] LABORATORY Calcium 10.2 8.5 - 10.5 mg/dL [facility] Protein, Total 7.4 6.1 - 8.0 g/dL [facility] Albumin 4.1 3.2 - 5.2 g/dL [facility] Aspartate Aminotransferase 24 0 - 30 unit/L [facility] Alanine Aminotransferase 12 0 - 30 unit/L [facility] Alkaline Phosphatase 93 35 - [...] City/State/[facility] Co de Phone Number [facility] [place] [address] documented in this encounter Visit Diagnoses Diagnosis S/P TAVR (transcatheter aortic valve replacement) Severe aortic stenosis Aortic valve disorders documented in this encounter Care Teams Mid Level Net Developer Relationship Specialty Start Date End Date Magdalena Acosta MD [address] [place] [address] PCP - General Family Medicine 02/05/23 documented as of this encounter
--- OUTSIDE RECORDS SUMMARY | 2024-06-06 13:59 | XMS_ITS | Encounter Summary ---
Author Organization [facility] [place] [address] Care Team Providers Care Billet Bed Operator Name Role Phone Magdalena Acosta MD Primary Care Provider [phone] Reason for Referral * Diagnostic Test (Routine) - New Request Specialty Diagnoses / Procedures Referred By Contac t Referred To Contact Cardiology Diagnoses S/P TAVR (transcatheter aortic valve replacement) Procedures Echocardiogram Transthoracic Antelmo Sharma MD [facility] [place] [address] [facility] [place] [address] Referral ID Status Reason Start Date Expiration Date Visits Requested Visits Authorized [id number] New Request Specialty Service Requested 12/16/2023 12/15/2024 1 1 Encounter Details Date Type Department Care Team (Late st Contact Info) Description 12/16/2023 Orders Only Cardiology at [address] [address] Antelmo Sharma MD [facility] [place] [address] S/P TAVR (transcatheter aortic valve [...] Visit Hematology and Oncology at [place] [phone] Markel Borjas MD [facility] DR HEMATOLOGY [place] [address] 11/02/2024 12:00 PM EDT Appointment Pulmonology at [place] [address] 11/02/2024 1:00 PM EDT Office Visit Rheumatology at [place] [address] Magdalena Peralta MD [facility] [place] [address] 03/01/2025 4:15 PM EDT Office Visit Dermatology at [place] [address] [facility] [place] [address] Marek Bonilla MD [address] [facility], [place] [address] Scheduled Orders Name Type Priority Associated Diagnoses Order Schedule Echocardiogram Transthoracic Echocardiography Routine S/P TAVR (transcatheter aortic valve replacement) Expected: 12/16/2023 (Approximate), Expires: 06/17/2024 EKG 12 Lead ECG Routine S/P TAVR (transcatheter aortic valve replacement) Expected: 12/16/2023 (Approximate), Expires: 06/17/2024 documented as of this encounter Visit Diagnoses Diagnosis S/P TAVR (transcatheter aortic valve replacement) documented in this encounter Care Teams Billet Bed Operator Relationship Specialty Start Date End Date Magdalena Acosta MD [address] [place] [address] PCP - General Family Medicine 02/05/23 documented as of this encounter
--- OUTSIDE RECORDS SUMMARY | 2024-06-06 13:59 | XMS_ITS | Encounter Summary ---
Author Organization [facility] [address] Care Team Providers Care Bath Solution Maker Name Role Phone Magdalena Acosta MD Primary Care Provider [phone] Reason for Visit * Reason Comments Aortic Stenosis Coronary Artery Disease Hypertension Encounter Details Date Type Department Care Team (Latest Contact Info) Description 11/16/2023 11:40 AM EDT TH Visit (TeleHealth) Cardiology at [address] [address] Jay Maza PA [facility] [place] [address] Aortic valve stenosis, etiology of cardiac valve disease unspecified; Coronary artery disease, unspecified vessel or lesion type, unspecified whether angina present, unspecified whether [place] or transplanted heart Social History Tobacco Use [...] from the original note were not included. [facility] Interventional Cardiology CARDIOLOGY TELE VISIT NOTE 11/16/23 Patient: Purnima Thacker Prior to the initiation of our discussion, the risks and benefits of tele health visits were discussed, and the patient consented verbally to this being a virtual telehealth visit in lieu of an in person office visit. CARDIOLOGISTS: Antelmo Sharma MD ([facility] Cards) Maria Luz Mejia MD ([facility] Cards - [facility]) Problem List: [...] notable for coronary artery protection given low brkhc-sn-joibmxbl distance. There was no obstruction post Valve [...] leads Confirmed by MD Harshil, Haris Bell ([id number]) on 05/10/2023 8:11:46 AM Cardiac Cath 11/09/2022 [...] in one year. EKATERINA Thompson Time spent: [id number] 0-5min 8514PBR1 6-10min 6588SMS8 11-15min x [id number] 16-20min 2144FWM5 21-30min 1518ZNJ1 31-40min 3564DQQ8 40+ min Jay Maza PA-C Interventional Cardiology [facility] Pager [phone] documented in this encounter Plan of Treatment Upcoming Encounters Date Type Department Care Team (Late st Contact Info) Description 06/23/2024 2:00 PM EST Office Visit Hematology [place] [address] Markel Borjas MD [facility] [address] HEMATOLOGY [place] [address] 11/02/2024 12:00 PM EDT Appointment Pulmonology at [place] [address] 11/02/2024 1:00 PM EDT Office Visit Rheumatology at [address] Magdalena Peralta MD [facility] [place] [address] 03/01/2025 4:15 PM EDT Office Visit Dermatology at [place] [address] [facility] [place] [address] Marek Bonilla MD [address] [facility] [address], [place] [address] documented as of this encounter Visit Diagnoses Diagnosis Aortic valve stenosis, etiology of cardiac valve disease unspecified Coronary artery disease, unspecified vessel or lesion type, unspecified whether angina present, unspecified whether [place] or transplanted heart documented in this encounter Care Teams Bath Solution Maker Relationship Specialty Start Date End Date Magdalena Acosta MD [address] [place] [address] PCP - General Family Medicine 02/05/23 documented as of this encounter
--- OUTSIDE RECORDS SUMMARY | 2024-06-06 13:59 | XMS_ITS | Encounter Summary ---
Author Organization [facility] Address [facility] [place] [address] Care Team Providers Care Tow Truck Dispatcher Name Role Phone Magdalena Acosta MD Primary Care Provider [phone] Encounter Details Date Type Department Care Team (Latest Contact Info) Description 05/12/2024 9:00 AM EDT Laboratory Appointment Lab at [facility] Hematology Oncology [address] [place] [address] S/P TAVR (transcatheter aortic valve replacement); Chronic [...] EST Office Visit [place]ematology [place] [address] Markel Borjas MD [facility] [address] HEMATOLOGY [place] [address] 11/02/2024 12:00 PM EDT [place]ointment [place] [address] 11/02/2024 1:00 PM EDT Office [place] [address] Magdalena Peralta MD [facility] DR RHEUMATOLOGY DEPT [place], [place] [address] 03/01/2025 4:15 PM EDT Office Visit Dermatology at [place] [address] [facility] [place] [address] Marek Bonilla MD [address], [place] [address] documented as of this encounter Procedures Procedure [...] - 39.4 pg 05/12/2024 9:32 AM EDT [facility] Blood VENOUS BLOOD SPECIMEN / Unknown Venipuncture / Unknown 05/12/2024 8:56 AM EDT 05/12/2024 8:56 AM EDT Tova Russell TRACER BULLET SECTION SUPERVISOR HEMATOLOGY ORDERABL ES [facility] [place] [address] * (ABNORMAL) Comprehensive metabolic panel Non-fasting (05/12/2024 8:56 AM EDT) Glucose 86 65 - 199 mg/dL [facility] Comment:Glucose Concentratio n >=200 mg/dL plus symptoms is consistent with Diabetes Mellitus. Blood Urea Nitrogen 20(H) 8 - 18 mg/dL 05/12/2024 11:36 AM [facility] Creatinine 0.88 0.70 - 1.20 mg/dL 05/12/2024 11:36 AM [facility] Sodium 145 135 - 145 mMol/L 05/12/2024 11:36 AM [facility] Potassium 4.6 3.5 - [...] 3.2 - 5.2 g/dL 05/12/2024 11:36 AM T [facility] Aspartate Aminotransferase 24 <=30 unit/L [...] Fasting Status No 05/12/2024 11:36 AM T [facility] Blood VENOUS BLOOD SPECIMEN / Unknown Venipuncture / Unknown 05/12/2024 8:56 AM EDT 05/12/2024 8:56 AM EDT Tova Russell TRACER BULLET SECTION SUPERVISOR CHEMISTRY ORDERABLE S [facility] [place] [address] * (ABNORMAL) CBC (with Diff) (05/12/2024 8:56 AM EDT) White Blood Cell 3.47(L) 4.00 - 9.50 x10(3)/mc L 05/12/2024 9:32 AM EDT [facility] Red Blood Cell 3.31(L) 4.00 - 5.21 x10(6)/mc L 05/12/2024 9:32 AM [facility] Hemoglobin 11.1(L) 11.7 - 15.5 g/dL 05/12/2024 9:32 AM [facility] Hematocrit 33.2(L) 35.7 - 45.8 % 05/12/2024 9:32 AM [facility] Mean Cell Volume 100.3(H) 82.6 - 94.4 fL 05/12/2024 9:32 AM [facility] Mean Cell Hemoglobin 33.5(H) 27.1 - 32.0 pg 05/12/2024 9:32 AM [facility] Mean Cell Hemoglobin Concentration 33.4 31.7 - 35.0 g/dL 05/12/2024 9:32 AM [facility] Platelet 142(L) 145 - 357 x10(3)/mc L 05/12/2024 9:32 AM [facility] Mean Platelet Volume 8.7 [...] % 16.7 % 05/12/2024 9:32 AM EDT [facility] Lymph Absolute 0.58(L) 0.90 - [...] EDT 05/12/2024 8:56 AM EDT Tova Russell TRACER BULLET SECTION SUPERVISOR HEMATOLOGY ORDERABL ES [facility] [place] [address] documented in this encounter Visit Diagnoses Diagnosis S/P TAVR (transcatheter aortic valve replacement) Chronic idiopathic neutropenia Other neutropenia documented in this encounter Care Teams Tow Truck Dispatcher Relationship Specialty Start Date End Date Magdalena Acosta MD [address] [place] [address] PCP - General Family Medicine 02/05/23 documented as of this encounter
--- OUTSIDE RECORDS SUMMARY | 2024-06-06 13:59 | XMS_ITS | Encounter Summary ---
[place] [address] Care Team Providers Care Medical Photographer Name Role Phone Magdalena Acosta MD Primary Care Provider [phone] Encounter Details Date Type Department Care Team (Late st Contact Info) Description 05/18/2024 Interpretation Only [address] [address] Magdalena Acosta MD [address] [place], [place] [id number] Social History Tobacco Use Types Packs/Day Years [...] EST Office Visit Hematology [place] [address] Markel Borjas MD [facility] [address] HEMATOLOGY [place] [address] 11/02/2024 12:00 PM EDT Appointment [place] [address] 11/02/2024 1:00 PM EDT Office [place] [address] Magdalena Peralta MD [facility] [place] [address] 03/01/2025 4:15 PM EDT Office Visit Dermatology at [place] [address] [place] [address] Marek Bonilla MD [address] [facility] [facility] [address], [place] [address] documented as of this encounter Procedures Procedure Name Priority Date/Time Associated Diagnosis Comments DXA CENTRAL SPINE, HIP, AND/OR WHOLE BODY (GENERIC) Routine 05/18/2024 11:21 AM EDT documented in this encounter Results * DXA Central Spine, Hip, and/or Whole Body (Generic) (05/18/2024 11:21 AM EDT) PT CLASS O RAD ADMITDTTM [id number] [facility] PT [facility] INFO [id number]^Dave ^Magdalena RAD EXAM DESC XDXAC^BD Bone Density DEXA Axial Skeleton^RIS [facility] WORKSTATION ID [id number] [facility] Anatomical Region Laterality Modality C-spine, Hip [...] who have questions please contact the health lawn caretaker that requested your imaging first. ? [...] patients who have questions please contactthe health lawn caretaker that requested your imaging first. Magdalena Acosta MD IMG DEXA ORDERABLES documented in this encounter Visit Diagnoses Not on filedocumented in this encounter Care Teams Medical Photographer Relationship Specialty Start Date End Date Magdalena Acosta MD [address] [place] [address] PCP - General Family Medicine 02/05/23 documented as of this encounter
--- OUTSIDE RECORDS SUMMARY | 2024-06-06 13:59 | XMS_ITS | Encounter Summary ---
Author Organization [facility] [place] [address] Care Team Providers Care Waist Cutter Name Role Phone Magdalena Acosta MD Primary Care Provider [phone] Reason for Referral * Diagnostic Test (Routine) - Closed Specialty Diagnoses / Procedures Referred By Contac t Referred To Contact Cardiology Diagnoses S/P TAVR (transcatheter aortic valve replacement) Procedures Echocardiogram Transthoracic Vinod Juárez PA [facility] [place] [address] [facility] [place] [address] Referral ID Status Reason Start Date Expiration Date V isits Requested Visits Authorized [id number] Closed Specialty Service Requested 05/22/2023 05/21/2024 1 1 Reason for Visit * Diagnostic Test (Routine) - Closed Specialty Diagnoses / Procedures Referred By Contac t Referred To Contact Cardiology Diagnoses S/P TAVR (transcatheter aortic valve replacement) Procedures Echocardiogram Transthoracic Vinod Juárez PA [facility] [place] [address] [facility] [place] [address] Referral ID Status Reason Start Date Expiration Date V isits Requested Visits Authorized [id number] Closed Specialty Service Requested 05/22/2023 05/21/2024 1 1 Encounter Details Date Type Department Care Team (Latest Contact Info) Description 07/08/2023 10:19 AM EST - 07/08/2023 11:59 PM EST Hospital Encounter Non-Invasive [place] [address] Alirio Esparza MD S/P TAVR (transcatheter aortic [...] Hematology [place] [address] Markel Borjas MD [facility] [address] HEMATOLOGY [place] [address] 11/02/2024 12:00 PM EDT Appointment [place] [address] 11/02/2024 1:00 PM EDT Office [place] [address] Magdalena Peralta MD [facility] [place] [address] 03/01/2025 4:15 PM EDT Office Visit Dermatology at [place] [address] [facility] [address] [place] [address] Marek Bonilla MD [address] [facility] [address], [place] [address] documented as of this encounter Procedures Procedure [...] EST Narrative 07/08/2023 12:26 PM EST 1 [place] [address] ? Echocardiogram Report Name: KIRSTIE, ONESIMO M ?Study Date: 07/08/2023 10:31 AMBP: 118/60 mmHg ? Patient Location: 4A : 1955 ? Height: 155 cm ? Account: [id number] Age: 67 yrs ? Weight: 74 kg Gender: Female ?BSA: 1.7 m2 Ordering Physician: ALIRIO ESPARZA Referring Physician: VINOD JUÁREZ Performed By: Felicia Norris RDCS Reason For Study: S/P TAVR Exam Location: [facility]. Interpretation Summary Left ventricular [...] no significant change (post-procedure). Procedure Limited - 81071. Doppler - 12380. Color Doppler - 72513. Satisfactory quality. This study is limited because [...] Note Lee Kincaid MD - 07/08/2023 1 [place] [address] Echocardiogram Report Name: ONESIMO THACKER Study Date: 0:31 AMBP: 118/60 mmHg Patient Location: : 1955 Height: 155 cm Account: [id number] Age: 67 yrs Weight: 74 kg Gender: Female BSA: 1.7 m2 Ordering Physician: ALIRIO ESPARZA Referring Physician: VINOD JUÁREZ Performed By: Felicia Norris RDCS Reason For Study: S/P TAVR Exam Location: [facility]. Interpretation Summary Left ventricular [...] is nosignificant change (post-procedure). Procedure Limited - 30135. Doppler - 41104. Color Doppler - 28786. Satisfactoryquality. This study is limited because of [...] replacement) documented in this encounter Care Teams Waist Cutter Relationship Specialty Start Date End Date Magdalena Acosta MD [address] [place] [address] PCP - General Family Medicine 02/05/23 documented as of this encounter
--- OUTSIDE RECORDS SUMMARY | 2024-06-06 13:59 | XMS_ITS | Encounter Summary ---
[place] [address] Care Team Providers Care It Infrastructure Project Manager Name Role Phone Magdalena Acosta MD Primary Care Provider [phone] Encounter Details Date Type Department Care Team (Latest Contact Info) Description 10/05/2023 10:52 AM EST - 10/05/2023 11:59 PM [facility] Hospital En[place] [address] Mixed connective tissue disease Discharge Disposition: Home Social History Tobacco Use Types Packs/Day Years Used Date Smoking Tobacco: Never Smokeless Tobacco: Never Alcohol Use Standard Drinks/Week Comments No 0 (1 standard drink = 0.6 oz pur e alcohol) none COUNT INCLUDES THE [facility] Inpatient Questions Answer Date Recorded Does [...] topically 2 times daily as needed. 10/22/2022 DTV[employer]Touch Verio test strips Strip USE DAILY 01/03/2022 [employer] Delica Plus Lancet 33 gauge Misc USE [...] EST Office Visit Hematology [place] [address] Markel Borjas MD [facility] [address] HEMATOLOGY [place] [address] 11/02/2024 12:00 PM EDT Appointment [place] [address] 11/02/2024 1:00 PM EDT Office [place] [address] Magdalena Peralta MD [facility] [place] [address] 03/01/2025 4:15 PM EDT Office Visit Dermatology at [place] [address] [facility] [place] [address] Marek Bonilla MD [address] [facility], [place] [address] documented as of this encounter Procedures Procedure [...] PFT FEV1/FVC Pre-BD Z-Score 0 COMPAS PFT OUU43-76 Actual Pre-BD 2.41 % COMPAS PFT EVR38-65 Predicted 1.8 % COMPAS PFT IHW09-04 Pre-BD % of Predicted 134 % COMPAS PFT RPD37-63 Pre-BD Z-Score 0.81 COMPAS PFT DLCO Hb [...] documented in this encounter Care Teams It Infrastructure Project Manager Relationship Specialty Start Date End Date Magdalena Acosta MD [address] [place] [address] PCP - General Family Medicine 02/05/23 documented as of this encounter
--- OUTSIDE RECORDS SUMMARY | 2024-06-06 13:59 | XMS_ITS | Encounter Summary ---
Author Organization [facility] Address [facility] [place] [address] Care Team Providers Care Hat Liner Name Role Phone Magdalena Acosta MD Primary Care Provider [phone] Encounter Details Date Type Department Care Team [...] EST Office Visit Hematology [place] [address] Markel Borjas MD [facility] [address] [place] [address] 11/02/2024 12:00 PM EDT Appointment [place] [address] 11/02/2024 1:00 PM EDT Office Visit [place] [address] Magdalena Peralta MD [facility] [place] [address] 03/01/2025 4:15 PM EDT Office Visit Dermatology at [place] [address] [facility] [place] [address] Marek Bonilla MD [address] [place] [address] documented as of this encounter Visit Diagnoses Not on filedocumented in this encounter Care Teams Hat Liner Relationship Specialty Start Date End Date Magdalena Acosta MD [address] [place] [address] PCP - General Family Medicine 02/05/23 documented as of this encounter
--- OUTSIDE RECORDS SUMMARY | 2024-06-06 13:59 | XMS_ITS | Encounter Summary ---
Author Organization [facility] Address [facility] [place] [address] Care Team Providers Care Mathematics Faculty Member Name Role Phone Magdalena Acosta MD Primary Care Provider [phone] Encounter Details Date Type Department Care Team [...] Visit Hematology [place] [address] Markel Borjas MD [facility] [address] [place] [address] 11/02/2024 12:00 PM EDT Appointment [place] [address] 11/02/2024 1:00 PM EDT Office [place] [address] Magdalena Peralta MD [facility] [place] [address] 03/01/2025 4:15 PM EDT Office Visit Dermatology at [place] [address] [facility] [place] [address] Marek Bonilla MD [address] [facility], [address] [place] [address] documented as of this encounter Visit Diagnoses Not on filedocumented in this encounter Care Teams Mathematics Faculty Member Relationship Specialty Start Date End Date Magdalena Acosta MD [address] [place] [address] PCP - General Family Medicine 02/05/23 documented as of this encounter
--- OUTSIDE RECORDS SUMMARY | 2024-06-06 13:59 | XMS_ITS | Encounter Summary ---
Author Organization [facility] Address [facility] [place] [address] Care Team Providers Care Production Helper Name Role Phone Magdalena Acosta MD Primary Care Provider [phone] Reason for Visit * Reason Comments Follow-up * Consultation (Routine) - Closed Specialty Diagnoses / Procedures Referred By Contac t Referred To Contact Hematology and Oncology Diagnoses Anemia, unspecified type Consuelo Guerrero, DO [address] [place] [address] [place] [address] [facility] [address] [place] [address] Referral ID Status Reason Start Date Expiration Date V isits Requested Visits Authorized [id number] Closed Consult, Test & Treat 04/11/2024 04/11/2025 1 1 Encounter Details Date Type Department Care Team (Late st Contact Info) Description 05/12/2024 10:00 AM EDT Office Visit [place] [address] Markel Borjas MD [facility] [address] [place] [address] Chronic idiopathic neutropenia Social History Tobacco Use Types Packs/Day Years Used Date Smoking Tobacco: Never Smokeless Tobacco: Never Alcohol Use Standard Drinks/Week Comments No 0 (1 standard drink = 0.6 oz pur e alcohol) none [facility] Inpatient Questions Answer Date Recorded Does [...] AM EDT Hematology Outpatient Clinic [facility] Hematology Outpatient Consult Note CC: 60 year [...] TOUCH PREP, CLOT SECTION, CORE BIOPSY); [OSR# [id number], COLLECTED 06/23/2016, 19 SLIDES]: 1. 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 pantoprazole EC (Protonix) 40 [...] intact. Extremities: No edema. Labs: Hgb= 11.7 Ejiu=600 ANC= 2.5 Assessment: 60 year-old woman found [...] EST Office Visit [place] [address] Markel Borjas MD [facility] [address] [place] [address] 11/02/2024 12:00 PM EDT [place] [address] 11/02/2024 1:00 PM EDT [place] [address] Magdalena Peralta MD [facility] [place] [address] 03/01/2025 4:15 PM EDT Office Visit Dermatology at [place] [address] [place] [address] Marek Bonilla MD [address] [place] [address] documented as of this encounter Results * Reticulocyte Count (05/12/2024 8:56 AM EDT) [facility] Reticulocyte % 1.20 0.70 - 2.50 % 05/12/2024 9:32 AM EDT [facility] Retic Abs # 0.0397 0.0200 - 0.1100 x10(6)/mcL 05/12/2024 9:32 AM EDT [facility] Immature Retic% 8.1 0.5 - 13.8 % 05/12/2024 9:32 AM EDT [facility] Reticulated Hgb 35.2 29.8 - 39.4 pg 05/12/2024 9:32 AM EDT [facility] Blood VENOUS BLOOD SPECIMEN / Unknown Venipuncture / Unknown 05/12/2024 8:56 AM EDT 05/12/2024 8:56 AM EDT Tova Russell WELL LOGGING MUD ANALYSIS CAPTAIN HEMATOLOGY ORDERABL ES [facility] [place] [address] * (ABNORMAL) Comprehensive metabolic panel Non-fasting (05/12/2024 8:56 AM EDT) [facility] Glucose 86 65 - 199 mg/dL 05/12/2024 11:36 AM EDT [facility] Comment:Glucose Concentratio n >=200 mg/dL plus symptoms is consistent with Diabetes Mellitus. Blood Urea Nitrogen 20(H) 8 - 18 mg/dL 05/12/2024 11:[address] [facility] Creatinine 0.88 0.70 - 1.20 mg/dL 05/12/2024 11:[address] [facility] Sodium 145 135 - 145 mMol/L 05/12/2024 11:[address] [facility] Potassium 4.6 3.5 - 5.0 mMol/L 05/12/2024 11:[address] [facility] Chloride 109(H) 98 - 107 mMol/L 05/12/2024 11:[address] [facility] Carbon Dioxide 21(L) 22 - 31 mMol/L 05/12/2024 11:[address] [facility] Anion Gap 15 5 - 15 mMol/L 05/12/2024 11:[address] [facility] Comment:Not Calculated. Calcium 9.9 8.5 - 10.5 mg/dL 05/12/2024 11:[address] [facility] Protein, Total 7.3 6.1 - 8.0 g/dL 05/12/2024 11:[address] [facility] Albumin 4.5 3.2 - 5.2 g/dL 05/12/2024 11:[address] [facility] Aspartate Aminotransferase 24 <=30 unit/L 05/12/2024 11:[address] [facility] Alanine Aminotransferase 14 0 - 30 unit/L 05/12/2024 11:[address] [facility] Alkaline Phosphatase 98 35 - 105 unit/L 05/12/2024 11:[address] [facility] Bilirubin, Total 0.2 <=1.3 mg/dL 05/12/2024 11:[address] [facility] Est Glomerular Filtration Rate - Female 72 mL/min/1. 73 m?? 05/12/2024 11:36 AM EDT [facility] Comment: This patient's [...] Fasting Status No 05/12/2024 11:36 AM EDT [facility] Blood VENOUS BLOOD SPECIMEN / Unknown Venipuncture / Unknown 05/12/2024 8:56 AM EDT 05/12/2024 8:56 AM EDT Tova Russell WELL LOGGING MUD ANALYSIS CAPTAIN CHEMISTRY ORDERABLE S Performing Organization Address City/State/[facility] Co de Phone Number [facility] [place] [address] * (ABNORMAL) CBC (with Diff) (05/12/2024 8:56 AM EDT) White Blood Cell 3.47(L) 4.00 - 9.50 x10(3)/mc L 05/12/2024 9:32 AM EDT [facility] Red Blood Cell 3.31(L) 4.00 - 5.21 x10(6)/mc L 05/12/2024 9:32 AM EDT [facility] Hemoglobin 11.1(L) 11.7 - 15.5 g/dL 05/12/2024 9:32 AM EDT [facility] Hematocrit 33.2(L) 35.7 - 45.8 % 05/12/2024 9:32 AM EDT [facility] Mean Cell Volume 100.3(H) 82.6 - 94.4 fL 05/12/2024 9:32 AM EDT [facility] Mean Cell Hemoglobin 33.5(H) 27.1 - 32.0 pg 05/12/2024 9:[address] [facility] Mean Cell Hemoglobin Concentration 33.4 31.7 - 35.0 g/dL 05/12/2024 9:[address] [facility] Platelet 142(L) 145 - 357 x10(3)/mc L 05/12/2024 9:[address] [facility] Mean Platelet Volume 8.7 7.6 - 12.9 fL 05/12/2024 9:[address] [facility] RDW Standard Deviation 44.4 37.0 - 46.0 fL 05/12/2024 9:[address] [facility] RDW coefficient of variation 12.0 11.5 - 14.1 % 05/12/2024 9:[address] [facility] NRBC% auto 0.0 % 05/12/2024 9:[address] [facility] NRBC Absolute <0.01 <0.01 x10(3)/mc L 05/12/2024 9:[address] [facility] Neutrophil % 69.7 % 05/12/2024 9:[address] [facility] Neutrophil Absolute (ANC) - Automated 2.42 1.70 - 6.10 x10(3)/mc L 05/12/2024 9:[address] [facility] Lymph % 16.7 % 05/12/2024 9:[address] [facility] Lymph Absolute 0.58(L) 0.90 - 3.20 x10(3)/mc L 05/12/2024 9:[address] [facility] Monocyte % 12.1 % 05/12/2024 9:[address] [facility] Monocyte Absolute 0.42 0.30 - 0.90 x10(3)/mc L 05/12/2024 9:[address] [facility] Eos % 0.6 % 05/12/2024 9:32 AM EDT [facility] Eos Absolute <0.04 0.00 - 0.40 x10(3)/mc L 05/12/2024 9:32 AM EDT [facility] Basophil % 0.6 % 05/12/2024 9:32 AM EDT [facility] Baso Absolute <0.04 0.00 - 0.10 x10(3)/mc L 05/12/2024 9:32 AM EDT [facility] Immature Gran % 0.3 % 9:32 AM EDT [facility] Immature Gran Absolute <0.04 0.00 - 0.04 x10(3)/mc L 05/12/2024 9:32 AM EDT [facility] Blood VENOUS BLOOD SPECIMEN / Unknown Venipuncture / Unknown 05/12/2024 8:56 AM EDT 05/12/2024 8:56 AM EDT Tova Russell WELL LOGGING MUD ANALYSIS CAPTAIN HEMATOLOGY ORDERABL ES [facility] [place] [address] documented in this encounter Visit Diagnoses Diagnosis Chronic idiopathic neutropenia Other neutropenia documented in this encounter Care Teams Production Helper Relationship Specialty Start Date End Date Magdalena cAosta MD [address] [place] [address] PCP - General Family Medicine 02/05/23 documented as of this encounter
--- OUTSIDE RECORDS SUMMARY | 2024-06-06 13:59 | XMS_ITS | Encounter Summary ---
Author Organization [facility] Address [facility] [place] [address] Care Team Providers Care Wharf Helper Name Role Phone Magdalena Acosta MD Primary Care Provider [phone] Reason for Visit * Reason Onset Date Comments Medication Refill 05/24/2024 Encounter Details Date Type Department Care Team (Late st Contact Info) Description 05/24/2024 Ref[place] [address] Magdalena Peralta MD [facility] [place] [address] Social History Tobacco Use Types Packs/Day Years Used Date Smoking Tobacco: Never Smokeless Tobacco: Never Alcohol Use Standard Drinks/Week Comments No 0 (1 standard drink = 0.6 oz pur e alcohol) none [facility] Inpatient Questions Answer Date Recorded Does Anyone [...] 200 mg tablet [facility] - [place], [place] - [address] [facility] [address] [facility] [address] documented in this encounter Plan of Treatment Upcoming Encounters Date Type Department Care Team (Late st Contact Info) Description 06/23/2024 2:00 PM EST Office Visit Hematology [place] [address] Markel Borjas MD [facility] [address] [place] [address] 11/02/2024 12:00 PM EDT [place]oint[place] [address] 11/02/2024 1:00 PM EDT Office [place] [address] Magdalena Peralta MD [facility] [place] [address] 03/01/2025 4:15 PM EDT Office Visit Dermatology at [address] [place] [address] Marek Bonilla MD [address] [facility], [place] [address] documented as of this encounter Visit Diagnoses Not on filedocumented in this encounter Care Teams Wharf Helper Relationship Specialty Start Date End Date Magdalena Acosta MD [address] [place] [address] PCP - General Family Medicine 02/05/23 documented as of this encounter
--- OUTSIDE RECORDS SUMMARY | 2024-06-06 13:59 | XMS_ITS | Encounter Summary ---
Author Organization [facility] Address [facility] [address] Care Team Providers Care Bird Keeper Name Role Phone Magdalena Acosta MD Primary Care Provider [phone] Encounter Details Date Type Department Care Team (Late st Contact Info) Description 07/29/2023 11:00 AM EST [place] [address] Magdalena Peralta MD [facility] [address] [place] [address] Mixed connective tissue disease Social History Tobacco [...] 1:5120 speckled; VIC negative; Myositis panel with QUALITY ASSURANCE ab 149.1 (positive); Anti U1RNP IgG 119; [...] Viramontes. Magdalena Peralta MD Rheumatology Fellow Pager: [phone] * Kia Viramontes DO - 07/29/2023 11:00 [...] Visit [place] [address] Markel Borjas MD [facility] [address] HEMATOLOGY [place] [address] 11/02/2024 12:00 PM EDT [place] [address] 11/02/2024 1:00 PM EDT Office [place] [address] Magdalena Peralta MD [facility] [address] [place] [address] 03/01/2025 4:15 PM EDT Office Visit Dermatology at [place] [address] [place] [address] Marek Bonilla MD [address], [place] [address] documented as of this encounter Results * [...] PFT FEV1/FVC Pre-BD Z-Score 0 COMPAS PFT OXQ59-16 Actual Pre-BD 2.41 % COMPAS PFT BDJ10-75 Predicted 1.8 % COMPAS PFT GFZ22-94 Pre-BD % of Predicted 134 % COMPAS PFT OWS20-99 Pre-BD Z-Score 0.81 COMPAS PFT DLCO Hb [...] tissue documented in this encounter Care Teams Bird Keeper Relationship Specialty Start Date End Date Magdalena Acosta MD [address] [place] [address] PCP - General Family Medicine 02/05/23 documented as of this encounter
--- OUTSIDE RECORDS SUMMARY | 2024-06-06 13:59 | XMS_ITS | Encounter Summary ---
Author Organization [facility] Address [facility] [place] [address] Care Team Providers Care Systems Operator Name Role Phone Magdalena Acosta MD Primary Care Provider [phone] Reason for Visit * Reason Comments Coronary Artery Disease Hypertension Aortic Stenosis Encounter Details Date Type Department Care Team (Latest Contact Info) Description 07/20/2023 4:40 PM EST TH Visit (TeleHealth) Cardiology at [address] [address] Jay Maza PA [facility] [place] [address] HFrEF (heart failure with reduced ejection fraction); [...] PA - 07/20/2023 4:40 PM EST [facility] Interventional Cardiology CARDIOLOGY [...] lieu of an in person office visit. Surgical Dressing Maker: Antelmo Sharma MD ([facility] Cards) Maria Luz Mejia MD ([facility] cards) Problem List: : [...] fraction I35.0 Mild coronary artery disease by [facility] 11/09/2022 I25.10 Heart failure with [...] notable for coronary artery protection given low dmsjh-ku-xkekhyay distance. There was no obstruction post Valve deployment, but the stent could not be removed safely, so it was deployed. 4.0 mm x 30mm in left main. She was loaded on brilinta aka ticagrelor. Immediately post valve deployment, chest compressions to circulate central epinephrine which was administered given her hypotension, low LVEF, and low cardiac reserve. Next, the patient was transferred to [facility] for pressor and inotropic support. [...] arms and wrists. Successful right transfemoral TAVR Dbttf-ao-Nvcqg with a 23 mm Lai 3 THV. [...] leads Confirmed by MD Harshil, Haris Bell ([id number]) on 05/10/2023 8:11:46 AM Cardiac Cath 11/09/2022 [...] in chart review and direct patient contact. [id number] 0-5min 5632PQY1 6-10min 3584NKV5 11-15min 0494QYS9 16-20min x 3974CMH1 21-30min 1258GVK8 31-40min 9005BXC3 40+ min Jay Maza PA-C Interventional Cardiology [facility] Heart [facility] Vascular [facility] Pager [phone] documented in this encounter Plan of Treatment Upcoming Encounters Date Type Department Care Team (Late st Contact Info) Description 06/23/2024 2:00 PM EST Office Visit Hematology [place] [address] Markel Borjas MD [facility] [address] [place] [address] 11/02/2024 12:00 PM EDT [place]oint[place] [address] 11/02/2024 1:00 PM EDT Office [place] [address] Magdalena Peralta MD [facility] [place] [address] 03/01/2025 4:15 PM EDT Office Visit Dermatology at [place] [address] [place] [address] Marek Bonilla MD [address] [facility], [place] [address] documented as of this encounter Visit Diagnoses Diagnosis HFrEF (heart failure with reduced ejection fraction) Hypertension, unspecified type Aortic valve stenosis, etiology of cardiac valve disease unspecified documented in this encounter Care Teams Systems Operator Relationship Specialty Start Date End Date Magdalena Acosta MD [address] [place] [address] PCP - General Family Medicine 02/05/23 documented as of this encounter
--- OUTSIDE RECORDS SUMMARY | 2024-06-06 13:59 | XMS_ITS | Encounter Summary ---
[place] [address] Care Team Providers Care Air Technician Name Role Phone Magdalena Acosta MD Primary Care Provider [phone] Encounter Details Date Type Department Care Team (Late st Contact Info) Description 05/18/2024 Interpretation Only [address] [address] Magdalena Acosta MD [address] [place], [place] [id number] Social History Tobacco Use Types Packs/Day Years [...] Visit [place]ematology [place] [address] Markel Borjas MD [facility] [address] [place] [address] 11/02/2024 12:00 PM EDT [place]oint[place] [address] 11/02/2024 1:00 PM EDT Office [place] [address] Magdalena Peralta MD [facility] [place] [address] 03/01/2025 4:15 PM EDT Office Visit Dermatology at [place] [address] [place] [address] Marek Bonilla MD [address] [place] [address] documented as of this encounter Procedures Procedure Name Priority Date/Time Associated Diagnosis Comments MAMMO SCREENING CAD BILATERAL (CH) Routine 05/18/2024 11:21 AM EDT documented in this encounter Results * MAMMO SCREENING CAD BILATERAL (CH) (05/18/2024 11:21 AM EDT) PT CLASS O RAD ADMITDTTM [id number] RAD PT RAD INFO [id number]^Dave ^Magdalena RAD EXAM DESC [facility]^MG Mammo Digital Screening Bilateral.^RIS RAD WORKSTATION ID [...] questions please contact the health child care worker that requested your imaging first. ? Electronically signed by: Rocael Villatoro MD, [facility] ([phone]), at 05/18/2024 3:[address] ??[id number] Narrative 05/18/2024 3:05 PM EDT EXAMINATION: MG [...] have questions please contactthe health child care worker that [place] [address] Magdalena Acosta MD [facility] documented in this encounter Visit Diagnoses Not on filedocumented in this encounter Care Teams Air Technician Relationship Specialty Start Date End Date Magdalena Acosta MD [address] [place] [address] PCP - General Family Medicine 02/05/23 documented as of this encounter
--- OUTSIDE RECORDS SUMMARY | 2024-06-06 13:59 | XMS_ITS | Encounter Summary ---
Author Organization [place] [address] Care Team Providers Care Paraffin Plant Sweater Operator Name Role Phone Magdalena Acosta MD Primary Care Provider [phone] Encounter Details Date Type Department Care Team (Latest Contact Info) Description 06/05/2024 1:04 PM EST - 06/05/2024 3:08 PM EST Hospital Encounter [facility] [place] [address] Markel Borjas MD [facility] [address] HEMATOLOGY [place] [address] Discharge Disposition: Home Social History Tobacco Use [...] 5pm or on a weekend: Call the [facility] threshing machine operator at and ask for the physician instructor physical education covering for your doctor. Instructions following sedation [...] drainage occurs, please [place] [address] [email or web address] documented in this encounter Medications at Time [...] Verio test strips Strip USE DAILY 01/03/2022 UAV NavigationTouch Delica Plus Lancet 33 gauge Misc USE [...] Office Visit Hematology [place] [address] Markel Borjas MD [facility] [address] HEMATOLOGY [place] [address] 11/02/2024 12:00 PM EDT Appointment [place] [address] 11/02/2024 1:00 PM EDT Office Visit [place] [address] Magdalena Peralta MD [facility] [place] [address] 03/01/2025 4:15 PM EDT Office Visit Dermatology at [address] [place] [address] Marek Bonilla MD [address] [place] [address], [place] [address] Pending Results Name Type Priority Associated Diagnoses [...] EST Diagnostic Bone Marrow Biopsies & Aspirations (00015) 06/05/2024 2:03 PM EST Anemia, in pt with longstanding neutropenia CBC (WITH DIFF) Routine 06/05/2024 1:45 PM EST (OSC MSURG) BONE MARROW BIOPSY AND ASPIRATION; DIAGNOSTIC Routine 06/05/2024 1:07 PM EST documented in this encounter Results * BM HOLD CYTOGENETICS/FISH (06/05/2024 2:22 PM EST) Bone Marrow Non Blood Collection / Unknown 06/05/2024 2:22 PM EST 06/05/2024 3:07 PM EST Narrative [facility] - 06/06/2024 10:47 AM EST ~3ml Markel Borjas MD PATHOLOGY/CYTOLOGY ORDERABLES [facility] [place] [address] * BM HOLD FLOW/MOLECULAR (06/05/2024 2:22 PM EST) Bone Marrow Non Blood Collection / Unknown 06/05/2024 2:22 PM EST 06/05/2024 3:07 PM EST Markel Borjas MD PATHOLOGY/CYTOLOGY ORDERABLES [facility] [place] [address] * (ABNORMAL) CBC (with Diff) (06/05/2024 1:45 PM EST) White Blood Cell 3.06(L) 4.00 - 9.50 x10(3)/mc L 06/05/2024 2:38 PM EST [facility] Red Blood Cell 3.35(L) 4.00 [...] EST Markel Borjas MD HEMATOLOGY ORDERAB LES [facility] [place] [address] documented in this encounter Visit Diagnoses Not on filedocumented in this encounter Active and Recently Administered [...] RN) documented in this encounter Care Teams Paraffin Plant Sweater Operator Relationship Specialty Start Date End Date Magdalena Acosta MD [address] [place] [address] PCP - General Family Medicine 02/05/23 documented as of this encounter
--- OUTSIDE RECORDS SUMMARY | 2024-06-06 13:59 | XMS_ITS | Encounter Summary ---
Author Organization [facility] [place] [address] Care Team Providers Care Building Maintenance Engineer Name Role Phone Magdalena Acosta MD Primary Care Provider [phone] Encounter Details Date Type Department Care Team (Late st Contact Info) Description 05/27/2023 Refill Cardiology at [address] [phone] Vero Marrero, RN Social History Tobacco Use Types Packs/Day Years Used Date Smoking Tobacco: Never Smokeless Tobacco: Never Alcohol Use Standard Drinks/Week Comments No 0 (1 standard drink = 0.6 oz pur e alcohol) none [facility] Inpatient Questions Answer Date Recorded Does Anyone [...] May 27, 2023 Jay Maza PA to [place] 05/27/23 2:44 PM OK to change ticagrelor to Clopidogrel. Now, she should be taking ticagrelor 90mg BID. When she switches, she can take ticagrelor, then the next morning, stop ticagrelor, instead take clopidogrel 300mg once, then after that 75mg once daily. Jay Marrero maintenance aide Clinic at [facility] [address] * Telephone Encounter - Vero Marrero RN [...] more affordable option, if possible. Vero Marrero maintenance aide Clinic at [facility] [address] documented in this encounter Plan of Treatment Upcoming Encounters Date Type Department Care Team (Late st Contact Info) Description 06/23/2024 2:00 PM EST Office Visit Hematology and Oncology at [place] [address] Markel Borjas MD [facility] [place] [address] 11/02/2024 12:00 PM EDT Appointment Pulmonology at [place] [address] 11/02/2024 1:00 PM EDT Office Visit Rheumatology at [place] [address] Magdalena Peralta MD [facility] [place] [address] 03/01/2025 4:15 PM EDT Office Visit Dermatology at [place] [address] [place] [address] Marek Bonilla MD [address] [place] [address] documented as of this encounter Visit Diagnoses Diagnosis Aortic valve stenosis, etiology of cardiac valve disease unspecified documented in this encounter Care Teams Building Maintenance Engineer Relationship Specialty Start Date End Date Magdalena Acosta MD [address] [place] [address] PCP - General Family Medicine 02/05/23 documented as of this encounter
--- OUTSIDE RECORDS SUMMARY | 2024-06-06 14:00 | XMS_ITS | Encounter Summary ---
Author Organization [facility] [place] [address] Care Team Providers Care Clinical Data Programmer Name Role Phone Magdalena Acosta MD Primary Care Provider [phone] Reason for Referral * Diagnostic Test (Routine) - Closed Specialty Diagnoses / Procedures Referred By Contac t Referred To Contact Cardiology Diagnoses S/P TAVR (transcatheter aortic valve replacement) Procedures Echocardiogram Transthoracic Vinod Juárez PA [facility] [place] [address] [facility] [place] [address] Referral ID Status Reason Start Date Expiration Date V isits Requested Visits Authorized [id number] Closed Specialty Service Requested 05/22/2023 05/21/2024 1 1 * Home Health Care (Routine) - Closed Specialty Diagnoses / Procedures Referred By Contac t Referred To Contact Diagnoses S/P TAVR (transcatheter aortic valve replacement) Alirio Hudson MD [facility] CARDIOTHORACIC SURGERY [address] [facility] & [address] [place] [address] Referral ID Status Reason Start Date Expiration Date V isits Requested Visits Authorized [id number] Closed Consult, Test & Treat 05/22/2023 11/18/2023 999 999 * Consultation (Routine) - Closed Specialty Diagnoses / Procedures Referred By Crispin maxwell Referred To Contact Cardiology Diagnoses S/P TAVR (transcatheter aortic valve replacement) Alirio Hudson MD [facility] [place] [address] Cardiac Rehab, [address] [place] [address] Referral ID Status Reason Start Date Expiration Date V isits Requested Visits Authorized [id number] Closed Consult, Test & Treat 05/22/2023 11/18/2023 36 36 * Diagnostic Test (Routine) - Closed Specialty Diagnoses / Procedures Referred By Crispin maxwell Referred To Contact Cardiology Diagnoses Aortic valve stenosis, etiology of cardiac valve disease unspecified Procedures Echocardiogram Transthoracic Transesophageal Echocardiogram (YUSRA) Radha Hollins MD [facility] [address] [facility] [place] [address] Referral ID Status Reason Start Date Expiration Date V isits Requested Visits Authorized [id number] Closed Specialty Service Requested 05/11/2023 05/10/2024 1 1 Reason for Visit * Auth/Cert (Routine) Specialty Diagnoses / Procedures Referred By Crispin maxwell Referred To Contact Diagnoses Symptomatic severe aortic stenosis with low ejection fraction NSTEMI, CHF Enrique Chua MD [facility] [place] [address] [facility] Referral ID Status Reason Start Date Expiration Date Visits Re quested Visits Authorized [id number] 1 1 Encounter Details Date Type Department Care Team (Latest Contact Info) Description 05/08/2023 9:14 AM EDT - 05/22/2023 10:46 AM EDT Hospital Encounter Heart and Vascular Unit Level 4 [place] [address] Enrique Chua MD [facility] [place] [address] Juan Luis Gonzalez MD [facility] [place] [address] Radha Hollins MD [facility] [place] [address] Alirio Hudson MD S/P TAVR (transcatheter aortic valve replacement) (Primary Dx); Aortic valve stenosis, etiology of cardiac valve disease unspecified; Symptomatic severe aortic stenosis with low ejection fraction; Heart failure with reduced ejection fraction due to heart valve disease; Mild coronary artery disease by [facility] 11/09/2022; Mixed connective tissue disease; Neck [...] Patient Age: 67 y.o. Birthdate: 1955 Language: Colombian Race: White Ethnicity: Not nor Admit Date: 05/08/2023 Discharge Date: 05/22/2023 Attending Physician: Alirio Hudson MD Follow-up Recommendations for Providers: Please continue routine management of cardiovascular risk factors including blood pressure, lipids,glucose, etc. Please note any medication changes. Patient to follow up with PCP, Magdalena Acosta MD, or Primary Automated Logistics Specialist, Mari aLuz Mejia MD, in ~ 7-10 days. Patient to follow up with Rn Labor Delivery, Dr. Antelmo Sharma, in 2 weeks with an EKG, Echo, CBC, and CMP. Patient to follow up with Nephrology, their office to arrange. Bixa-Fezpaf-ky interval: After initial 30 day follow-up appointment , all TAVR patients will follow-up again in one year with an echo. 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 Secondary Diagnoses: Active Hospital Problems Diagnosis S/P TAVR (transcatheter aortic valve replacement) Cardiogenic shock Symptomatic severe aortic stenosis with low ejection fraction Mild coronary artery disease by [facility] 11/09/2022 Heart failure with reduced ejection [...] Tube Placement Right 05/18/2023 Laure Ricks PA [facility] INTERVENTIONL RAD PRG CATH PLMT LEFT HEART CATH & ARTS W/INJ & ANGIO IMG S&I N/A 11/09/2022 CORONARY ANGIOGRAPHY; W [facility],POSSIBLE PCI (WRVU 5.6) performed by Mario Alberto Escobedo MD at [facility] CATH LABS PRG COMBINED RIGHT & LEFT HEART CATH W/INJ L VENTRICULOGRAPHY, IMG S&I N/A 05/12/2023 COMBINED RIGHT & LEFT HEART CATH,INC INJ FOR L VENTRICULOGRAPHY (WRVU 5.99) performed by Antelmo Sharma MD at [facility] CATH LABS PRO AORTOPLAS FOR SUPRAVALV STEN N/A 09/21/2016 @AORTOPLASTY FOR SUPRAVALVULAR STENOSIS (WRVU 29.33) performed by Alirio Hudson MD at [facility] MAIN OR PRO REPLACE AORTIC VALVE (TAVR/FEDERICO)PERC FEMORAL ARTERY APPROACH 05/12/2023 @TRANSCATHETER AORTIC VALVE REPLACEMENT (TAVR), PERCUTANEOUS FEMORAL (WRVU 22.47) performed by Alirio Hudson MD at [facility] CATH LABS PRO REPLACEMENT PROSTHETIC AORTIC VALVE OPEN W CARDIOPULMONARY BYPASS HOMOGRF/STENT N/A 09/21/2016 @REPLACE AORTIC VALVE, OPEN, W\CPB, W\PROSTHETIC VALVE (WRVU 41.32) performed by Alirio Hudson MD at [facility] MAIN OR Prior [...] Major Procedures/Operations: 05/12/23: Successful right transfemoral TAVR Gzyqs-ix-Quifm with a 23 mm Lai 3 THV. Left coronary protection with left main MINNA. Hospital Course: #Severe prosthetic s/p valve in valve TF TAVR #Low coronary heights s/p left main stent for coronary protection #Type 2 NSTEMI, present on arrival, resolved #Acute decompensated HFrEF #Cardiogenic shock #EVANS / Cardiorenal syndrome Purnima Thacker was admitted to [facility] on 05/08/2023 via the Cardiology Service with [...] TAVR and she was brought to the labor relations analyst the following morning where Drs. Alirio [...] you have questions. Please call your Rn Labor Delivery's office if you have any discharge or drainage from your procedural sites. Your Rn Labor Delivery, Dr. Antelmo Sharma and/or the Cut Off Sawyer may be reached at . Antibiotic prophylaxis: You will need to take antibiotics prior to many invasive tests and treatments, such as dental cleaning, which should be done every 6 months. Your primary care physician or your dentist can prescribe this medication. Please refer to the card with the [place] [employer] Guidelines for more information. You have been provided with a copy of this card. Please refer to the [place] [employer] Guidelines for more information. Good [...] friends, go to a movie, go to yarsanism, etc. Heavy activities: No hunting, skiing, jogging, [...] should resume a low fat, low cholesterol, [place] [employer] Diet Driving: No restrictions. Shower/Bath: You may shower daily. No baths, soaking, or swimming for the first week. Wound care: Wash the sites daily with soap and rinse well, pat dry. Assess for any signs of infection such as increased redness, pain, warmth or drainage. Please call your language specialist's office if you have any discharge or drainage from your procedural sites. If there is a lot of swelling, apply mamta wraps during the day and remove at bedtime. Elevate your legs when you are sitting. Home oxygen therapy: N/A Follow up appointments: Please schedule a follow-up appointment with your PCP, Magdalena Acosta MD, or Primary Automated Logistics Specialist in ~ 7-10 days. You have a follow-up appointment with your Rn Labor Delivery, Dr. Antelmo Sharma, in 2 weeks with an EKG, Echo, and labs prior to your appointment. You will need follow-up with Nephrology, their office will arrange. Jqbw-Jpwdsy-ym interval: After initial 30 day follow-up appointment , all TAVR patients will follow-up again in one year with an echo. Cardiac Rehabilitation: Purnima Thacker was seen today regarding participation in the outpatient Phase [address] [facility]. The patient agrees to [...] [facility] Arrive at: [facility] [employer] [facility] [address] [phone] 02/11/2024 2:00 PM Marek Bonilla MD Dermatology at [place] Arrive at: [facility] [address] [phone] Future Orders Complete By Expires Type and Screen Future Surgery, [facility] SAME DAY PROGRAM ONLY) [[id number] Custom] 05/11/2023 Process Instructions: This test is intended ONLY for patients with upcoming surgery for testing prior to the day of surgery obtained through the same day program (4V or SDP). For ALL OTHER PATIENTS, order a Type and Screen ([id number]) This order includes the physician order for an ABO Recheck if requested by the Blood Bank. Scheduling Instructions: Comments: Questions: Date of surgery: CBC (with Diff) [[id number] Custom] 06/05/2023 12/05/2023 Process Instructions: INCLUDES: WBC, RBC, Hgb, Hct, Platelets, RBC Indices and Differential Scheduling Instructions: Comments: Questions: Comprehensive metabolic panel (non-fasting) [LAB17 Custom] 06/05/2023 08/20/2023 Process Instructions: INCLUDES: Calcium, T Protein, Albumin, AST, ALT, Alk Phos, T Bili, BUN, Creat, GFR, Glucose, Lytes. Scheduling Instructions: Comments: Questions: Echocardiogram Transthoracic [39242 CPT(R)] 06/05/2023 12/05/2023 Process Instructions: Scheduling Instructions: Questions: Where will study be performed?: [facility] Clinics Does the patient have Congenital Heart Disease?: Does patient require sedation?: GA rationale: EKG 12 Lead [47387 CPT(R)] 06/05/2023 12/05/2023 Process Instructions: Scheduling Instructions: Questions: Which location will this be performed?: [place] Is a rhythm strip needed?: No [facility] [EQ161 Custom] As directed Process Instructions: Scheduling Instructions: Questions: Device Needed: WALKER (E0143) Patient Height (cm): 154.9 cm (5' 0.98) Patient Weight: 75.4 kg (166 lb 3.2 oz) Diagnosis: Unsteady gait when walking Referral to Cardiac Rehab [LOR560 Custom] As directed Process Instructions: If no progress note charted, please enter Clinical details in comments. Scheduling Instructions: Questions: My question or request is: s/p TAVR. Cardiac rehab at [facility]. Referral to Home Health [REF34 Custom] As directed Process Instructions: If no progress note charted, please enter Clinical details in comments. Scheduling Instructions: Comments: DOCUMENTATION FOR VNA SERVICES PATIENT'S LOCATION: Purnima Thacker [address] [place] [phone] (home) Shank Maker's Name: Self and brother Raymond In discussion with the attending physician, it is certified that this patient is under his/her careand that MD, or an QUALITY CONTROL TECHNICIAN, FOOTWEAR FACTORY WORKER, or PA who is working directly with him/her, had a idpp-bq-xkbi encounter that meets the physician apds-yh-snkd encounter requirements with this patient on 05/22/2023. [...] for managing ADLs. HOME HEALTH CARE AGENCY: [facility]. [address] [place] [address] PHONE: [phone] FAX: [phone] Start of care: Ideally 24-48 hours after [...] [address] / [facility] [address] All VNA agencies which cover the area of patient's residence have been reviewed, either verbally joao writing, and patient has chosen the home health care agency noted. Questions: Disciplines Requested: Physical Therapy Occupational Therapy Discharge References/Attachments None Arrangements for VNA/home care: As above. (delete if no VNA) Signed: EKATERINA NAVARRETE [facility] Section of Cardiac Surgery Date: 05/22/2023 CC: Magdalena Acosta MD [place] Alberto MD [address] [place] [address] documented in this encounter Discharge Instructions * Patient Instructions* Vinod Juárez PA - 05/22/2023 9:32 AM EDT TAVR Discharge Instructions: Call your doctor if: You have a fever of greater than 101 degrees, shaking chills, if you develop redness or drainage from your procedure sites, or if you have questions. Please call your Rn Labor Delivery's office if you have any discharge or drainage from your procedural sites. Your Rn Labor Delivery, Dr. Antelmo Sharma and/or the Cut Off Sawyer may be reached at . Antibiotic prophylaxis: You will need to take antibiotics prior to many invasive tests and treatments, such as dental cleaning, which should be done every 6 months. Your primary care physician or your dentist can prescribe this medication. Please refer to the card with the [place] [employer] Guidelines for more information. You have been provided with a copy of this card. Please refer to the [place] Heart [employer] Guidelines for more information. Good [...] friends, go to a movie, go to yarsanism, etc. Heavy activities: No hunting, skiing, jogging, [...] should resume a low fat, low cholesterol, [place] [employer] Diet Driving: No restrictions. Shower/Bath: You may shower daily. No baths, soaking, or swimming for the first week. Wound care: Wash the sites daily with soap and rinse well, pat dry. Assess for any signs of infection such as increased redness, pain, warmth or drainage. Please call your language specialist's office if you have any discharge or drainage from your procedural sites. If there is a lot of swelling, apply mamta wraps during the day and remove at bedtime. Elevate your legs when you are sitting. Home oxygen therapy: N/A Follow up appointments: Please schedule a follow-up appointment with your PCP, Magdalena Acosta MD, or Primary Automated Logistics Specialist in ~ 7-10 days. You have a follow-up appointment with your Rn Labor Delivery, Dr. Antelmo Sharma, in 2 weeks with an EKG, Echo, and labs prior to your appointment. You will need follow-up with Nephrology, their office will arrange. Jrmq-Ekaggz-mc interval: After initial 30 day follow-up appointment , all TAVR patients will follow-up again in one year with an echo. Cardiac Rehabilitation: Purnima Thacker was seen today regarding participation in the outpatient Phase [address] [facility]. The patient agrees to [...] ins ( tef) Haven Ba, PT Pager: [phone] Physical Therapy Inpatient Rehabilitation Department * Nico [...] 0600 and on the weekends please page [phone]. * Jory Paniagua - 05/20/2023 3:52 PM [...] vomiting Last Bowel Movement: 05/20/23 Jory Paniagua Clay Artist * Tong Mike, OT - 05/20/2023 3:16 [...] Tube Placement Right 05/18/2023 Laure Ricks PA [facility] INTERVENTIONL RAD PRG CATH PLMT LEFT HEART CATH & ARTS W/INJ & ANGIO IMG S&I N/A 11/09/2022 CORONARY ANGIOGRAPHY; W [facility],POSSIBLE PCI (WRVU 5.6) performed by Mario Alberto Escobedo MD at [facility] CATH LABS PRG COMBINED RIGHT & LEFT HEART CATH W/INJ L VENTRICULOGRAPHY, IMG S&I N/A 05/12/2023 COMBINED RIGHT & LEFT HEART CATH,INC INJ FOR L VENTRICULOGRAPHY (WRVU 5.99) performed by Antelmo Sharma MD at [facility] CATH LABS PRO AORTOPLAS FOR SUPRAVALV STEN N/A 09/21/2016 @AORTOPLASTY FOR SUPRAVALVULAR STENOSIS (WRVU 29.33) performed by Alirio Hudson MD at [facility] MAIN OR PRO REPLACE AORTIC VALVE (TAVR/FEDERICO)PERC FEMORAL ARTERY APPROACH 05/12/2023 @TRANSCATHETER AORTIC VALVE REPLACEMENT (TAVR), PERCUTANEOUS FEMORAL (WRVU 22.47) performed by Alirio Hudson MD at [facility] CATH LABS PRO REPLACEMENT PROSTHETIC AORTIC VALVE OPEN W CARDIOPULMONARY BYPASS HOMOGRF/STENT N/A 09/21/2016 @REPLACE AORTIC VALVE, OPEN, W\CPB, W\PROSTHETIC VALVE (WRVU 41.32) performed by Alirio Hudson MD at [facility] MAIN OR Social History: Patient lives alone. Home Setup: Pt lives on one level with tub shower and three steps to enter. DME: none used ELECTRICAL CONTROLS ASSEMBLER Baseline ADL/Mobility: Independent with ADLs and IADLs. [...] Vision & Perception: corrective lenses time study technician Communication: WFL Range of motion, strength, coordination: [...] Discharge planning. Total Minutes, Occupational Therapy: 28 (8521-0132) OT Evaluation Code Rationale: Diagnosis & Pertinent Co-Morbidities affecting Plan of Care: see PMHx Occupational Profile & Client History: Brief Expanded Extensive x Assessment of Occupational Performance: 1-3 performance deficits 3-5 performance deficits x 5 + performance deficits Clinical Decision Making: Low Moderate High x Clinical decision making of moderate complexity using standardized patient assessment instrument and measurable assessment of functional outcome. Pager: [phone] TONG MIKE OT 05/20/2023 Occupational Therapy Rehabilitation [...] 0600 and on the weekends please page [phone]. * Rylie Rodriguez MD - 05/19/2023 3:59 [...] and plan. Cynthia Blackburn MD Nephrology Pager: [phone] * Diana Espino - 05/19/2023 1:49 PM EDT Display Card Writer Encounter Note Patient Name: Purnima Thacker : [id number] MR#: [id number] Admit Date: 05/08/2023 9:14 AM Hospital Day [...] as stated. Total Minutes, Physical Therapy: 38 ([phone]) Henrik Navarrete, ELECTRICAL CONTROLS ASSEMBLER Pager: [phone] Physical Therapy Inpatient Rehabilitation Department * Nico [...] 0600 and on the weekends please page [phone]. * Laure Ricks PA - 05/19/2023 7:56 [...] Ricks PA-C Interventional Radiology IR Team Pager [phone] * Consuelo Espinoza RN - 05/18/2023 4:13 PM EDT ANGIO NURSING DATABASE Name: Purnima Thacker Date of : 1955 AGE: 67 y.o. Address: [address] [place] [phone] (home) Mobile: No relevant phone numbers on [...] I35.0 Mild coronary artery disease by [facility] 11/09/2022 I25.10 Heart failure with reduced [...] and plan. Cynthia Blackburn MD Nephrology Pager: [phone] * Magdalena Puri, CONTAINER SHOP WELDER - 05/18/2023 10:51 AM EDT Images from the original note were not included. [facility] [place] [address] [address] STRUCTURAL HEART DISEASE CONSULTATION NOTE PRIMARY CARE [...] stenosis. She is now status post TAVR Yvjlr-wd-Iquhs with a 23 mm Lai 3 THV 05/12/[address] Sharma. Preliminary findings: Successful right transfemoral TAVR Tpdgd-zt-Jwuwh with a 23 mm Lai 3 THV. [...] fraction Mild coronary artery disease by [facility] 11/09/2022 Heart failure with reduced ejection [...] stenosis. She is now status post TAVR Bhfgx-kv-Yvyzk with a 23 mm Lai 3 THV [...] Magdalena Puri APRN Structural Heart Team Pager [phone] Team Office Please see addendum by Dr. Sharma for final plan and recommendations Associated attestation - Antelmo Sharma MD - 05/19/2023 10:52 PM EDT I have reviewed Magdalena Puri APRN's above history and I agree with the details as written. The assessment and plan were formulated in discussion with me and I agree with them as documented. Antelmo Sharma MD Pager [phone] * Nico Palacios PA - 05/18/2023 8:13 [...] 0600 and on the weekends please page [phone]. * Loli Hernandez, PT - 05/17/2023 5:27 [...] plan as stated. Time IN / OUT: 4078-0904 Total Minutes, Physical Therapy: 54 Billing Code: te-sx2, te-f, gait LOLI HERNANDEZ PT Pager: [phone] Physical Therapy Inpatient Rehabilitation Department * Cynthia [...] Well controlled. Cynthia Blackburn MD Nephrology Pager: [phone] * Maggie Mara, CONTAINER SHOP WELDER - 05/17/2023 8:26 AM EDT Cardiac Surgery [...] 0600 and on the weekends please page [phone]. * Guerda Del Valle - 05/16/2023 10:44 AM EDT Nutrition Services Note - Low Nutrition Acuity Purnima Thacker is a 67 y.o. female Reason for intervention: hospital day 9 Nutrition Plan: Continue diet order Encourage good PO Lasix and Zofran noted Added special serve: open containers Monitor weight Patient scheduled for a hospital day 9 nutrition evaluation. Coating Mixer Tender met with pt at bedside. Pt reports that her appetite and PO has much improved since admission. Denies nausea/vomiting or trouble chewing/swallowing. Coating Mixer Tender provided snack list but pt not interested in adding snacks at this time. Her only concern was that she is worried that she will eat too much which will cause too much pressure in her stomach. Coating Mixer Tender assured pt and suggested eating smaller [...] Last Bowel Movement: 05/10/23 Guerda Del Valle Clay Artist * Vinod Juárez PA - 05/16/2023 10:19 [...] 0600 and on the weekends please page [phone]. * Michael Jeffers MD - 05/16/2023 8:11 AM EDT Images from the original note were not included. Hypertension-Nephrology Inpatient Follow-up Purnima Thacker [id number] 1955 ID: 67 y.o. old female seen [...] IRONSAT 12 (L) 05/16/2023 SFOLATE >20.0 07/03/2022 [id number] 07/03/2022 Lab Results Component Value Date [...] Dr. Ayoub. Please contact me at phone: [phone] or pager: [phone] with any questions. Michael Jeffers MD Nephrology [...] -Nephrology consulted, labs and renal US ordered -Mcclusky removed, ambulated around the unit -bilateral pleural [...] 0600 and on the weekends please page [phone]. * Hortencia Cody MD - 05/15/2023 2:07 [...] not included. Hypertension-Nephrology Inpatient Follow-up Purnima Thacker [id number] 1955 ID: 67 y.o. old female seen [...] HGB 7.8 (L) 05/13/2023 SFOLATE >20.0 07/03/2022 [id number] 07/03/2022 Lab Results Component Value Date [...] Dr. Ayoub. Please contact me at phone: [phone] or pager: [phone] with any questions. Michael Jeffers MD Nephrology [...] outlined inthis evaluation. HAVEN BA, PT Pager: [phone] Physical Therapy Inpatient Rehabilitation Department Time IN / OUT: 6976-3270 Total time: Total Minutes, Physical Therapy: 30 [...] 0600 and on the weekends please page [phone]. * Antelmo Sharma MD - 05/14/2023 7:56 AM EDT Images from the original note were not included. [place] [place] [id number] STRUCTURAL HEART DISEASE CONSULTATION NOTE PRIMARY CARE [...] stenosis. She is now status post TAVR Zayug-iz-Nimvg with a 23 mm Lai 3 THV 05/12/[address] Sharma. Preliminary findings: Successful right transfemoral TAVR Pchwn-uj-Kwnzh with a 23 mm Lai 3 THV. [...] fraction Mild coronary artery disease by [facility] 11/09/2022 Heart failure with reduced ejection [...] stenosis. She is now status post TAVR Ssbjb-wi-Vjvdb with a 23 mm Lai 3 THV [...] Brody Kaplan APRN Structural Heart Team Pager [phone] Team Office Please see addendum by Dr. [...] exposure. Nephrology consultationtoday. Antelmo Sharma MD Pager [phone] * Antelmo Cardenas RN - 05/14/2023 5:18 AM EDT Pt AOx4, complaining of mild/moderate generalized pain (states her Meloxicam is effective at home) currently refusing prn oxycodone. NAEON, hemodynamically stable on Milrinone, Maps >65, ST in gsi831's down to NSR with frequent multifocal PVC's. [...] included. [facility] [place] [address] [address] STRUCTURAL HEART DISEASE PROGRESS NOTE PRIMARY CARE [...] stenosis. She is now status post TAVR Itjhs-gw-Zxwbq with a 23 mm Lai 3 THV 05/12/[address] Sharma. Preliminary findings: Successful right transfemoral TAVR Nmqgf-fu-Ihnnc with a 23 mm Lai 3 THV. [...] or perforation. Interval Events: - Transferred to [facility] post- TAVR [...] fraction Mild coronary artery disease by [facility] 11/09/2022 Heart failure with reduced ejection [...] stenosis. She is now status post TAVR Cmhqh-xv-Lupdb with a 23 mm Lai 3 THV [...] Brody Kaplan APRN Structural Heart Team Pager [phone] Team Office Please see addendum by Dr. [...] DAPT moving forward. Antelmo Sharma MD Pager [phone] * Bonita Miguel PA - 05/13/2023 8:30 AM EDT Cardiac Surgery Progress Note Purnima Thacker is a 67 y.o. 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 PMH of s/p tissue AVR (2017), mixed connective tissue disease HTN, HLD, NICOLAS, diverticulosis, rosacea, essential tremor, and depression. 24h Events: From labor relations analyst for above procedure Extubated at ~1600 [...] soft b/l, no evidence of hematoma. Tubes/Lines/Drains: Mcclusky, RIJ, A-line, Art, PIV Assessment/Plan: 67 y.o. [...] 0600 and on the weekends please page [phone]. * Onelia Schwartz MD - 05/12/2023 1:44 [...] fraction Mild coronary artery disease by [facility] 11/09/2022 Heart failure with reduced ejection [...] FiO2 weaned to 40%. 1105: ABG 7.34/42/73/22 2622-1160: SBT performed and passed on these settings [...] PCP: Magdalena Acosta MD PCP phone number: [phone] Date of Admission: 05/08/2023 ( Hospital Day [...] 1447 PHART -- 7.34* 7.34* -- -- FTA9BNS -- 30* 30* -- -- PO2ART -- 72* 81* -- -- IVL6EJA -- 16.0* 15.7* -- -- LACTATEVEN 2.4* 2.7* 2.7* 4.8* 2.9* VBG (Venous Blood Gas) Recent Labs 05/12/23 0700 05/12/23 0318 05/12/2310505/11/23193905/11/23 1447 LACTATEVEN 2.4* 2.7* 2.7* 4.8* 2.9* Mixed Venous Sat Recent Labs 05/12/23 0508 05/12/23 0321 05/12/23 0114 05/12/23 0030 [id number] 30.7 32.7 37.3 25.1 Objective: Vitals Last [...] who have questions please contact the health associate director career services that requested your imaging first. Electronically signed by: ALIX RUVALCABA MD, [facility] ([phone]), at 05/10/2023 1:[address] Cardiac for [...] who have questions please contact the health associate director career services that requested your imaging first. Electronically signed by: Cullen Narayanan MD, [facility] ([phone]), at 05/11/2023 4:[address] Angiogram Abdomen [...] who have questions please contact the health associate director career services that requested your imaging first. Electronically signed by: Eileen Gomes MD, [facility] ([phone]), at 05/11/2023 2:42 PM XR Chest One [...] who have questions please contact the health associate director career services that requested your imaging first. Electronically signed by: Will Rowe MD, [facility] ([phone]), at 05/11/2023 11:57 PM XR Chest One [...] who have questions please contact the health associate director career services that requested your imaging first. Electronically signed by: Will Rowe MD, [facility] ([phone]), at 05/12/2023 3:16 AM Assessment & Plan: [...] and inotrope. She is planned for a qcxtq-rs-jtgjv TAVR this morning, which should hopefully improve [...] MD, FACP, FACC Section of Cardiovascular Medicine [facility] Fire Adjusterdevelopment team lead [facility] * Noreen Deutsch RN - [...] fraction Mild coronary artery disease by [facility] 11/09/2022 Heart failure with reduced ejection [...] 05/11/2023 4:11 PM EDT Reported off to SET BUILDER and pt transferred over in the bed for higher level of care. * Antelmo Sharma MD - 05/11/2023 9:45 AM EDT Images from the original note were not included. [facility] [place] [id number] STRUCTURAL HEART DISEASE CONSULTATION NOTE PRIMARY CARE [...] who had been referred for possible TAVR fyipn-jk-omwfm evaluation. Her primary symptoms are of dyspnea [...] [facility]. 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 She [...] fraction Mild coronary artery disease by [facility] 11/09/2022 Heart failure with reduced ejection [...] ([facility] Result Value Ref Range Lactate WB 3.1 (H) 0.5 - 2.2 mmol/L Heparin (unfractionated) Level Result Value Ref Range Heparin UFH Level 0.46 IU/mL Lactate, whole blood, send to lab ([facility] Result Value Ref Range Lactate WB 1.8 [...] leads Confirmed by MD Harshil, Enrique Bell ([id number]) on 05/10/2023 8:11:46 AM Cardiac Cath 11/09/2022 [...] alert Dr. Hudson of her inpatient status, [place] primary cardiac surgeon. Based on recent clinic [...] 05/12/2023. Brody KaplanANURAG Structural Heart Disease Pager [phone] Please see addendum by Dr. Sharma for [...] signed and dated. Antelmo Sharma MD Pager [phone] * Harini Lance MD - 05/11/2023 6:06 AM EDT Images from the original note were not included. Cardiology Progress Note Patient info: Name: Purnima Thacker : 1955 PCP: Magdalena Acosta MD PCP phone number: [phone] Date of Admission: 05/08/2023 ( Hospital Day [...] who have questions please contact the health associate director career services that requested your imaging first. Electronically signed by: ALIX RUVALCABA MD, [facility] ([phone]), at 05/10/2023 1:25 PM TTE: 05/08 -Left [...] 09/2016) Mild coronary artery disease by [facility] 11/09/2022 Hyperlipidemia, unspecified NICOLAS (obstructive sleep [...] PCP: Magdalena Acosta MD PCP phone number: [phone] Date of Admission: 05/08/2023 ( Hospital Day [...] 09/2016) Mild coronary artery disease by [facility] 11/09/2022 Hyperlipidemia, unspecified NICOLAS (obstructive sleep [...] PCP: Magdalena Acosta MD PCP phone number: [phone] Date of Admission: 05/08/2023 ( Hospital Day [...] Gas) No results found for: PHART, PO2ART, QWY6QVI, NBJ8UUN Microbiology: Microbiology Results (Last 30 days) No [...] 09/2016) Mild coronary artery disease by [facility] 11/09/2022 Hyperlipidemia, unspecified NICOLAS (obstructive sleep [...] her home machine. Pt is cooperative Mario Albreto Howe RCP documented in this encounter H&P [...] I35.0 Mild coronary artery disease by [facility] 11/09/2022 I25.10 Heart failure with reduced ejection fraction due to heart valve disease I50.20, I38 Cardiogenic shock R57.0 S/P TAVR (transcatheter aortic valve replacement) Z95.2 Past Medical History: Diagnosis Date Anemia Past Surgical History: Procedure Laterality Date PRG CATH PLMT LEFT HEART CATH & ARTS W/INJ & ANGIO IMG S&I N/A 11/09/2022 CORONARY ANGIOGRAPHY; W [facility],POSSIBLE PCI (WRVU 5.6) performed by Mario Alberto Escobedo MD at [facility] CATH LABS PRO AORTOPLAS FOR SUPRAVALV STEN N/A 09/21/2016 @AORTOPLASTY FOR SUPRAVALVULAR STENOSIS (WRVU 29.33) performed by Alirio Hudson MD at [facility] MAIN OR PRO REPLACEMENT PROSTHETIC AORTIC VALVE OPEN W CARDIOPULMONARY BYPASS HOMOGRF/STENT N/A 09/21/2016 @REPLACE AORTIC VALVE, OPEN, W\CPB, W\PROSTHETIC VALVE (WRVU 41.32) performed by Alirio Husdon MD at [facility] MAIN OR Social History and Habits: [...] I35.0 Mild coronary artery disease by [facility] 11/09/2022 I25.10 Heart failure with reduced ejection fraction due to heart valve disease I50.20, I38 Cardiogenic shock R57.0 S/P TAVR (transcatheter aortic valve replacement) Z95.2 Past Medical History: Diagnosis Date Anemia Past Surgical History: Procedure Laterality Date PRG CATH PLRI LEFT HEART CATH & ARTS W/INJ & ANGIO IMG S&I N/A 11/09/2022 CORONARY ANGIOGRAPHY; W [facility],POSSIBLE PCI (WRVU 5.6) performed by Mario Alberto Escobedo MD at [facility] CATH LABS PRO AORTOPLAS FOR SUPRAVALV STEN N/A 09/21/2016 @AORTOPLASTY FOR SUPRAVALVULAR STENOSIS (WRVU 29.33) performed by Alirio Hudson MD at [facility] MAIN OR PRO REPLACEMENT PROSTHETIC AORTIC VALVE OPEN W CARDIOPULMONARY BYPASS HOMOGRF/STENT N/A 09/21/2016 @REPLACE AORTIC VALVE, OPEN, W\CPB, W\PROSTHETIC VALVE (WRVU 41.32) performed by Alirio Hudson MD at [facility] MAIN OR Social History and Habits: [...] prompted her to present to [employer]. She also endorses some intermittent retrosternal chest pain with exertion.She endorses some dizziness with exertion, but has not gotten faint or passed out. At [employer] she was noted to be afebrile, blood pressure 105/64, HR 120s, satting 95% on 2L NC. Labs from [facility] are below, of note she [...] prompted the transfer to us. [facility] labs: CBC - Hgb 10.5 CMP - Cr 1.1 BNP 36165 HsTrop 1358 Lactate 1.6 D-dimer 1183 Interval [...] Klaudia Reid MD Internal Medicine PGY-1 Pager [phone], M1-S1 Service Associated attestation - Juan Luis Gonzalez MD - 05/08/2023 10:00 PM EDT Cardiology Attending Addendum Active Hospital Problems Diagnosis Symptomatic severe aortic stenosis with low ejection fraction Heart failure with reduced ejection fraction due to heart valve disease Mild coronary artery disease by [facility] 11/09/2022 Hyperlipidemia, unspecified History of aortic valve replacement Resolved Hospital Problems No resolved problems to display. I have interviewed and examined the patient, reviewed the available data, and have discussed my findings, assessment and plan with the patient and the team on admission to S2 service (from [facility] service) today. I agree with Dr. Reid's [...] PCP: Magdalena Acosta MD PCP phone number: [phone] Date of Admission: 05/08/2023 ( Hospital Day 0 days ) Attending:Enrique Chua MD ID: Purnima Thacker is a 67 y.o. female w/ PMH of s/p bioprosthetic AVR in 2016 with recent concern for severe restenosis, HTN, HLD, mixed connective tissue disease, who presents in transfer from [employer] [facility] with worsening BONILLA and weight [...] which promptedher to present to [employer]. She also endorses some intermittent retrosternal chest pain with exertion. She endorses some dizziness with exertion, but has not gotten faint or passed out. At [employer] she was noted to be afebrile, blood pressure 105/64, HR 120s, satting 95% on 2L NC. Labs from [facility] are below, of note she [...] prompted the transfer to us. [facility] labs: CBC - Hgb 10.5 CMP - Cr 1.1 BNP 35360 HsTrop 1358 Lactate 1.6 D-dimer 1183 Vasoactive [...] [facility] BONILLA and weight gain [...] Lincoln Sal MD Internal Medicine, PGY-1 Cardiology [facility] #[id number] 05/08/23 12:06 PM Cardiology Staff Addendum [...] to the planned procedure. Hand Hygiene: The medical sales did perform hand hygiene prior to arterial [...] Successful arterial line placement. Crispin Timmons MD Cut Off Sawyer Associated attestation - Onelia Schwartz MD - [...] (flow was non-pulsatile) and appearance of blood. Mcclusky-Marily catheter was placed and locked at 55 [...] information for follow-up [facility] [address] [place] [address] Cardiac Rehab, [facility] [address] [place] [address] [place] [address] [facility] [address] [place] [address] Transportation: family or friend will provide *Brother [...] Type: *No Product type* / Secondary Insurance: [employer] [place] Prescription Coverage: Yes This plan was formulated with input from patient, family (please identify family/friend involved ifapplicable) and team. All are in agreement with plan. Aliza Martino MSN-Ed, RN ACM animal surgeon Office of Care Management Pager #[phone] * Plan of Care - Favian Mckeon [...] Chaudhary RN - 05/21/2023 4:46 PM EDTSummary: [facility] referral OFFICE OF CARE MANAGEMENT [...] Type: *No Product type* / Secondary Insurance: [email or web address] [facility] Last Physical Therapy Recommendation: (Home with [...] describing our affiliations within the [facility] and educate about their right to choose where referrals are sent. provide a list of Home Health Agencies / Durable Medical Equipment vendors which serve their preferred geographic area. They have requested referrals to: [facility] [address] [place] [id number] [facility] @ [facility] [place] Note routed to a Duct Cleaner who will communicate referrals to facilities and provide any required information. Transportation: family or friend will provide *Brother Raymond on Tuesday 05/22 at 1000 Barriers to discharge: Does not have home 22/02 assist available until tomorrow Tuesday 05/22 Plan going forward: Discharge home into the 22/02 home care of brother Raymond with [facility] and [facility] PT/OT services on Tuesday 05/22 [...] Attending: All Staff: Staff Role Juanita Almaguer Occupational Health Physiotherapist Laure Ricks PA Physician Morgue Librarian Magdalena Rodriguez double surface operator Nurse Consuelo Espinoza RN Radiology Nurse Post-operative [...] Type: *No Product type* / Secondary Insurance: [employer] [place] Last Physical Therapy Recommendation: correction facility, [...] Office of Care Management letter from the Blankbook Forwarder pertaining to rehab referrals. provide a letter describing our affiliations within the [facility] and educate about their right to choose where referrals are sent. provide the CMS Star Quality Rating handout. review the different levels of rehab including SNF, swing, and acute. provide a list of facilities within their preferred geographic area. request that they provide at least three choices for referral. They have requested referrals to: [facility] [address] [place] [address] [facility] ([facility]) [address] [place] [address] (Accepts pts only after exhausting all other local SNF options) [facility] ([facility]) ([facility]) [address] [place] [address] PHONE: [phone] FAX: [phone] Simin Benavides [place] ([facility]) [facility]) [address] [place] [address] PHONE: [phone] FAX: [phone] Note routed to a Duct Cleaner who will communicate referrals to facilities and provide any required information. Transportation: family or friend will provide Barriers to discharge: Discharge planning Plan going forward: Care Management will continue to follow and assist with discharge planning and coordination of care as indicated. Anticipated Date of Discharge: 05/20/2023 Mario Alberto Olmos RN * Plan of Care - Miugel Brody RN - 05/17/2023 6:34 PM EDT [...] Phase [address] [facility]. The patient agrees to [...] from the original note were not included. [facility] NEPHROLOGY/HYPERTENSION CONSULT NOTE PATIENT: Purnima [...] in her course. She ultimately underwent a yujec-zo-ukksw procedure on and tolerated it well (see [...] 1423 05/12/23 1105 PHART 7.39 7.37 7.34* QHN8IHR 33* 36 42 PO2ART 101 102 73* OQY5GCB 19.5* 20.4 22.1 LACTATEVEN 1.5 1.8 2.8* CST2YEA 40 40 40 PFRATIOART2 252 255 182 VBG (Venous Blood Gas) Recent Labs 05/12/23 1557 05/12/23 1423 05/12/23 1105 LACTATEVEN 1.5 1.8 2.8* Mixed Venous Sat Recent Labs 05/12/23 1425 05/12/23 0508 05/12/23 0321 K5NNMC5 59.9 30.7 32.7 LFT's: Recent Labs 05/14/23 0110 05/13/23 0115 05/12/23 0600 BILITOT 0.4 0.5 0.9 BILIDIR -- 0.3 -- ALBUMIN 3.6 3.0* 3.5 ALKPHOS 86 85 100 ALT 437* 903* 1,174* AST 319* 792* 1,435* No results found for: UPROTCREAT No results found for: TPROTEINPEP, ALBELECT No results found for: MICROALBUR, QSEB82HHI No results found for: HA1C Lab Results Component Value Date CALCIUM 8.5 05/14/2023 PHOS 4.7 (H) 05/08/2023 No results found for: 25OHVITD MICROBIOLOGY: ProcedureComponentValueUnitsDate/TimeUrine culture [[id number]]Collected: 05/11/231921Lab Status: Final resultSpecimen: Clean Catch UrineUpdated: [...] consulted for assessment if this patient needs BAG BAILER. Atthis time, we can likely hold off on BAG BAILER. Her volume status appears sufficient and her metabolic kanwal angements with mild acidosis is not too profound. Patient does not have significant uremic symptoms. We can hold off for today, but the patient is a high risk candidate for needing BAG BAILER in future daysespecially if her Cr curve trends the direction it is for the next several days. S/p Dkogn-oj-Zuizx TF TAVR: Management per cardiology. On milrinone gtt. PLAN: - Please obtain following diagnostics: renal US, urinalysis, urine prot/Cr ratio, urine albumin/Cr ratio, CK, uric acid, serum osmol, daily VBGs - No acute indications for BAG BAILER/dialysis. We will keep close eye on Cr trend, volume status, and metabolics to ensure patient still does not need BAG BAILER as she ensues intrinsic renal recovery - [...] M.H.A., M.A. PGY-V Nephrology-Hypertension Fellow Page # [phone] [facility] [address] 2nd floor, [place]im[place] Press Operator [address] [place] [address] * Care Management - Mario Alberto Olmos [...] Type: *No Product type* / Secondary Insurance: [facility] [place] Plan for discharge is: Home [...] CV at 0945. Was intubated in the labor relations analyst due to agitation. Maintained bedrest for [...] Operative Note Patient Name: Purnima Thacker : [id number] MR#: [id number] Case Date: 05/12/2023 Surgeon: Surgeon(s) and Role: [...] procedure Note: Patient Name: Purnima Thacker : [id number] MR#: [id number] Case Date: 05/12/2023 Operators Surgeon: Surgeon(s) and [...] main with 4.0 x 30 mm Resolute [place] Drug Eluting Stent Perclose x1 + Angio-seal 8 Fr x1, RFA Manual pressure, LFA Manual pressure, LFV Endotracheal intubation (performed by cardiac anesthesia) Preliminary findings: Successful right transfemoral TAVR Snhsw-el-Oonty with a 23 mm Lai 3 THV. [...] using a 4.0 x 30 mm Resolute MINAN. While there was no coronary occlusion post [...] MD, M.Sc. Structural Heart Disease Fellow Pager :[phone] Antelmo Sharma MD Pager [phone] * Op Note - Alirio Hudson MD - 05/12/2023 7:37 AM EDT Preop Diagnosis: Severe aortic stenosis, symptomatic. Postop Diagnosis: Same. Procedure: Transfemoral TAVR procedure with 23mm valve. Surgeon: Alirio Hudson M.D. Automated Logistics Specialist: Danny CULP Procedure: The patient was taken to the labor relations analyst. The patient had monitored anesthesia care. 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 [facility] [place] [address] [address] STRUCTURAL HEART DISEASE CONSULTATION NOTE PRIMARY CARE [...] who had been referred for possible TAVR dntxa-ma-qqhok evaluation. Her primary symptoms are of dyspnea [...] [facility]. 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 PROBLEM LIST: Patient Active Problem List Diagnosis Symptomatic severe aortic stenosis with low ejection fraction Mild coronary artery disease by [facility] 11/09/2022 Heart failure with reduced ejection [...] ([facility] Result Value Ref Range Lactate WB 1.8 [...] leads Confirmed by MD Harshil, Enrique Bell ([id number]) on 05/10/2023 8:11:46 AM Assessment and Plan: [...] Antelmo Sharma MD Structural Heart Disease Pager [phone] * Plan of Care - Sarahi Nice [...] another hospital Location: admitted from [facility] Reason for Hospitalization: Critical aortic [...] receiving care in [place] must abide by [place] law. The hierarchy [...] (i) The agent with financial power of consumer attorney or a conservator appointed in accordance [...] Current DME: none Home Address confirmed as: [address] [place] [id number] Social & Family Supports: All names listed [...] Type: *No Product type* / Secondary Insurance: [email or web address] [facility] [place] ONLY if patient has Medicare A&B - Does this patient have secondary insurance?: Yes ; Prescription Coverage: Yes Preferred Pharmacy: updated to [facility] in [facility] Status: Patient is a : No Primary Care Provider confirmed: Magdalena Acosta MD [phone] Patient/Caregiver Goals of Treatment: Potential Needs for [...] of a 2 story home with 2 [facility]. Patient is independent with ADL's [...] of care planning. Alie Bradshaw RN, CM Pager-[phone] * Plan of Care - Emily Lucero RN - 05/08/2023 2:54 PM EDT OUTCOME EVALUATION NOTE: OUTCOME SUMMARY: Pt arrived from [facility]. A&O, no c/o pain or [...] EST Office Visit Hematology [place] [phone] Markel Borjas MD [facility] [place] [address] 11/02/2024 12:00 PM EDT Appointment [place] [phone] 11/02/2024 1:00 PM EDT Office [place] [address] Magdalena Peralta MD [facility] [place] [address] 03/01/2025 4:15 PM EDT Office Visit Dermatology at [address] [address] Marek Bonilla MD [address], [place] [address] Scheduled Referrals Name Type Priority Associated Diagnoses [...] Heart Cath W/Inj L Ventriculography, Img S&I (31006) 05/12/2023 7:37 AM EDT Aortic valve stenosis, [...] EST Narrative 07/08/2023 12:26 PM EST [address] [place] [address] ? Echocardiogram Report Name: PURNIMA THACKER ?Study Date: 07/08/2023 10:31 AMBP: 118/60 mmHg ? Patient Location: 4A : 1955 ? Height: 155 cm ? Account: [id number] Age: 67 yrs ? Weight: 74 kg Gender: Female ?BSA: 1.7 m2 Ordering Physician: ALIRIO HUDSON Referring Physician: VINOD JUÁREZ Performed By: Felicia Norris RDCS Reason For Study: S/P TAVR Exam Location: [facility]. Interpretation Summary Left ventricular [...] no significant change (post-procedure). Procedure Limited - 50692. Doppler - 61725. Color Doppler - 81780. Satisfactory quality. This study is limited because [...] Note Lee Kincaid MD - 07/08/2023 [address] [place] [address] Echocardiogram Report Name: PURNIMA THACKER Study Date: 310:31 AMBP: 118/60 mmHg Patient Location: 4A : 1955 Height: 155 cm Account: [id number] Age: 67 yrs Weight: 74 kg Gender: Female BSA: 1.7 m2 Ordering Physician: ALIRIO HUDSON Referring Physician: VINOD JUÁREZ Performed By: Felicia Norris RDCS Reason For Study: S/P TAVR Exam Location: [facility]. Interpretation Summary Left ventricular [...] is nosignificant change (post-procedure). Procedure Limited - 48598. Doppler - 41726. Color Doppler - 13437. Satisfactoryquality. This study is limited because of [...] LABORATORY Creatinine 0.81 0.70 - 1.20 mg/dL [facility] Sodium 142 135 - [...] CHEMISTRY ORDERABLE S [facility] [place] [address] * (ABNORMAL) Basic Metabolic Panel (non-fasting) (05/22/2023 [...] Carbon Dioxide 23 22 - 31 mmol/L [facility] [...] Resulting Agency Comment Spec In Lab Mara Seligman CONTAINER SHOP WELDER CHEMISTRY ORDERABL ES [facility] [place] [address] * (ABNORMAL) Basic Metabolic Panel (non-fasting) (05/21/2023 [...] Spec In Lab [facility] CONTAINER SHOP WELDER CHEMISTRY ORDERABL ES Performing Organization Address [facility] Co de Phone Number [facility] [place] [address] * Lavender Tube HOLD (05/20/2023 2:52 AM EDT) Lavender Hold Sample in lab. [facility] Blood Venous Draw / Unknown 05/20/2023 2:52 AM EDT 05/20/2023 3:04 AM EDT [facility] CONTAINER SH[employer] WELDER HEMATOLOGY ORDERAB LES Performing Organization Address City/[facility]/ZIP Co de Phone Number [facility] [place] [address] * (ABNORMAL) Basic Metabolic Panel (non-fasting) (05/20/2023 [...] Agency Comment Spec In Lab Mara Serrano CONTAINER SH[employer] WELDER CHEMISTRY ORDERABL ES [facility] [place] [address] * (ABNORMAL) Potassium (05/20/2023 2:52 AM EDT) [...] Agency Comment Spec In Lab Mara Serrano CONTAINER [employer] WELDER CHEMISTRY ORDERABL ES [facility] [place] [address] * XR Chest PA & Lateral (Generic) [...] who have questions please contact the health associate director career services that requested your imaging first. ? Narrative [...] patients who have questions please contactthe health associate director career services that requested your imaging first. Alirio Hudson MD IMG DX ORDERABLES * (ABNORMAL) Basic Metabolic Panel (non-fasting) (05/19/2023 5:49 AM EDT) Glucose 93 65 - 199 mg/dL [facility] Comment:Diabetes: >=200 mg/d L plus symptoms Blood Urea Nitrogen 45(H) 8 - 18 mg/dL [facility] Creatinine 1.02 0.70 - 1.20 mg/dL [facility] Sodium 138 135 - [...] Agency Comment Spec In Lab Mara Serrano CONTAINER [employer]DER CHEMISTRY ORDERABL ES [facility] [place] [address] * IR Chest Tube Placement Right (05/18/2023 [...] Kristopher Salgado MD 05/18/[address] [facility] IR ORDERABLES * (ABNORMAL) Basic Metabolic Panel (non-fasting) (05/18/2023 2:54 AM EDT) Glucose 95 65 - 199 mg/dL [facility] Comment:Diabetes: >=200 mg/d L plus symptoms Blood Urea Nitrogen 71(H) 8 - 18 mg/dL [facility] Comment:result rechecked-[facility] Creatinine 1.64(H) 0.70 - 1.20 mg/dL [facility] Comment:result rechecked-[facility] Sodium 137 135 - 145 mmol/L [facility] [...] Carbon Dioxide 24 22 - 31 mmol/L [facility] Anion Gap 13 5 - 15 mmol/L [facility] Calcium 9.7 8.5 - 10.5 mg/dL [facility] Est Glomerular Filtration Rate 34(L) >=60 mL/min/1. 73 m?? [facility] Comment: This patient's estimated [...] Agency Comment Spec In Lab Mara Maggie [employer]ELDER CHEMISTRY ORDERABL ES [facility] [place] [address] * XR Chest PA & Lateral (Generic) [...] who have questions please contact the health associate director career services that requested your imaging first. ? Electronically signed by: Ghassan Reyes MD, [facility] ??([phone]), at 05/17/2023 11:46 AM Narrative 05/17/2023 11:46 [...] patients who have questions please contactthe health associate director career services that requested your imaging first. Electronically signed by: Ghassan Reyes MD, [facility]([phone]), at 05/17/2023 11:46 AM Alirio Hudson MD [...] ORDERABLE S Performing Organization Address [facility] Co de Phone Number [facility] [place] [address] * Potassium (05/16/2023 11:15 PM EDT) Potassium [...] ORDERABLE S Performing Organization Address [facility] Co de Phone Number [facility] [place] [address] * Magnesium (05/16/2023 5:22 PM EDT) Pathologist [facility] Magnesium 0.96 0.69 - 1.07 mmol/L [facility] Blood 05/16/2023 5:22 PM EDT 05/16/2023 5:27 PM EDT Narrative Resulting Agency Comment Spec In Lab Alirio Hudson MD CHEMISTRY ORDERABLE S Performing Organization Address [facility] Co de Phone Number [facility] [place] [address] * (ABNORMAL) Basic Metabolic Panel (non-fasting) (05/16/2023 5:22 PM EDT) Glucose 106 65 - 199 mg/dL [facility] Comment:Diabetes: >=200 mg/d L plus symptoms Blood Urea Nitrogen 103(H) 8 - 18 mg/dL [facility] Creatinine 3.91(H) 0.70 - 1.20 mg/dL [facility] Comment:result rechecked-imm Sodium 132(L) 135 - 145 mmol/L [facility] Potassium 3.6 3.5 - [...] CHEMISTRY ORDERABLE S [facility] [place] [address] * (ABNORMAL) Potassium (05/16/2023 11:43 AM EDT) [...] CHEMISTRY ORDERABLE S [facility] [place] [address] * (ABNORMAL) Ferritin (05/16/2023 4:41 AM EDT) Pathologist [facility] Ferritin 1,813(H) 30 - 400 ng/mL [facility] [...] MD CHEMISTRY ORDERABLES [facility] [place] [address] * (ABNORMAL) PTH (05/16/2023 4:41 AM EDT) [facility] Parathyroid Hormone 120(H) 15 - 65 pg/mL [facility] Blood 05/16/2023 4:41 AM EDT 05/16/2023 4:54 AM EDT Narrative Resulting Agency Comment Spec In Lab Kristopher Ayoub MD CHEMISTRY ORDERABLES [facility] [place] [address] * Vitamin D, 25-Hydroxy (05/16/2023 4:41 AM EDT) [facility] Vitamin D Total 25 OH 33 21 - 100 ng/mL [facility] Vit D Interp Sufficient [facility] Blood 05/16/2023 4:41 AM EDT 05/16/2023 4:54 AM EDT Narrative Resulting Agency Comment Spec In Lab Kristopher Ayoub MD CHEMISTRY ORDERABLES [facility] [place] [address] * (ABNORMAL) Blood Gas Venous ([facility]) (05/16/2023 [...] [facility] Oxyhemoglobin, Venous 92.8 % [facility] Carboxyhemoglob in, Venous 0.1 % [facility] Comment: Nonsmokers: 0.5-1.5% COHB Smokers: Variable, but usually less than 10% Toxic: 20-30% COHB Lethal: Greater than 60% COHB Methemoglobin, Venous 0.3 <=1.5 % [facility] Na Whole Blood 130(L) 135 - 145 mmol/L [facility] K Whole Blood 3.7 [...] Whole Blood 95(L) 98 - 107 mmol/L [facility] Gluc Whole Bld 82 65 - 199 mg/dL [facility] Comment:Diabetes: >=200 mg/d L plus symptoms Lactate WB 1.1 0.5 - 2.2 mmol/L [facility] Blood Gas Source Venous [facility] Blood Venous Draw / Unknown 05/16/2023 4:22 AM EDT 05/16/2023 4:31 AM EDT Narrative Resulting Agency Comment Spec In Lab Bonita TOBAR CHEMISTRY ORDERABLES [facility] [place] [address] * (ABNORMAL) Differential, Automated (05/16/2023 4:20 AM EDT) Neutrophil % 84.1 % [facility] Neutrophil Absolute 6.22(H) 1.70 - 6.10 x10(3)/mc L [facility] Lymph % 5.8 % [facility] Lymphocytes Abs 0.4(L) 0.9 - 3.2 x10(3)/mc L [facility] Monocyte % 8.8 % [facility] Monocyte Abs 0.6 0.3 - 0.9 x10(3)/mc L [facility] Eos % 0.4 % [facility] Eosinophils Abs 0.0 0.0 - 0.4 x10(3)/mc L [facility] Basophil % 0.0 % [facility] Baso Absolute 0.0 0.0 - [...] [facility]/ZIP Co de Phone Number [facility] [place] [address] * (ABNORMAL) Hemogram (05/16/2023 4:20 AM EDT) [...] [facility]AL [facility] NRBC% auto 0.7 % [facility] NRBC Absolute 0.050(H) 0.000 - 0.000 x10(3)/ L [facility] Blood 05/16/2023 4:20 AM EDT 05/16/2023 4:29 AM EDT Narrative Resulting Agency Comment Spec In Lab James Agustin MD HEMATOLOGY ORDER JODIE [facility] [place] [address] * (ABNORMAL) Basic Metabolic Panel (non-fasting) (05/16/2023 [...] CHEMISTRY ORDERABLE S [facility] [place] [address] * (ABNORMAL) Iron and TIBC (05/16/2023 4:20 [...] MD CHEMISTRY ORDERABLES [facility] [place] [address] * (ABNORMAL) Basic Metabolic Panel (non-fasting) (05/15/2023 [...] [facility]/ZIP Co de Phone Number [facility] [place] [address] * (ABNORMAL) Hemogram (05/15/2023 12:50 AM EDT) [...] [facility] NRBC% auto 2.1 % [facility] NRBC Absolute 0.190(H) 0.000 - 0.000 x10(3)/mc L [facility] Blood 05/15/2023 12:5 0 AM EDT 05/15/2023 12:52 AM EDT Narrative Resulting Agency Comment Spec In Lab Alirio Hudson MD HEMATOLOGY ORDERABL ES Performing Organization Address [facility] Co de Phone Number [facility] [place] [address] * (ABNORMAL) BLOOD GAS 2 VENOUS (05/15/2023 12:49 AM EDT) pH, Venous 7.33 7.32 - 7.42 [facility] PCO2, Venous 37(L) 41 - 51 mmHg [facility] PO2, Venous 34 25 - 40 mmHg [facility] Bicarbonate, Venous 19.1 mmol/L [facility] Base Excess, Venous -6.8 mmol/L [facility] Hgb Blood Gas 10.8(L) 11.7 - 15.5 g/dL [facility] Oxyhemoglobin, Venous 58.1 % [facility] Carboxyhemoglob in, Venous 0.3 % [facility] Comment: Nonsmokers: 0.5-1.5% COHB Smokers: Variable, but usually less than 10% Toxic: 20-30% COHB Lethal: Greater than 60% COHB Methemoglobin, Venous 0.6 <=1.5 % [facility] Na Whole Blood 136 135 - 145 mmol/L [facility] K Whole Blood 3.7 3.5 - 5.0 mmol/L [facility] Comment: Please note: Patients with WBC >100,000 may have falsely elevated Potassium levels. Contact the Clinical Chemistry Laboratory if there are any questions. ICa Whole Blood 1.12(L) 1.15 - 1.33 mmol/L [facility] Comment: Note: ??Total bilirubin higher than 20 mg/dL may lead to falsely low ionized calcium. CL Whole Blood 95(L) 98 - 107 mmol/L [facility] Gluc Whole Bld 101 65 - 199 mg/dL [facility] Comment:Diabetes: >=200 mg/d L plus symptoms Lactate WB 1.3 0.5 - 2.2 mmol/L [facility] Flow, Mike 1.0 LPM [facility] Blood Gas Source Venous [facility] Blood 05/15/2023 12:4 9 AM EDT 05/15/2023 12:49 AM EDT Alirio Hudson MD POINT OF CARE TEST ORDERABLES [facility] [address] [place] [address] * US Retroperitoneal Complete (05/14/2023 3:53 PM [...] signed by: Hayden Robledo MD, [facility] ([phone]), at 05/14/2023 4:32 PM Thank you for letting us participate in the care of this patient. If you are a health care provider and have any questions regarding this report, please contact the number above. For patients who have questions, please contact the health associate director career services that requested your imaging first. ? Hayden Robledo, Staff Physician Electronically Signed Final Report ?? 05/14/2023 04:39 pm Narrative 05/14/2023 4:39 PM EDT Renal ? (Signed Final 05/14/2023 04:39 pm) PATIENT INFO: ID #: ? [id number] ?: ??[birth year] (67 yrs)(F) Name: ? PURNIMA Magalie KIRSTIE ?Visit Date: 05/14/2023 03:44 pm PERFORMED BY: Attending: ?Meena CULP, Hayden Stafford Resident: ? Barnacle MD, Anand D. Performed By: ? [place] RDMS, Consuelo Referred By: ?ALIRIO HUDSON Location: ? [place] SERVICE(S) PROVIDED: URETRO - Retroperitoneal Complete - [id number] ? [id number] INDICATIONS: EVANS COMPARISON: CT: Abdomen/Pelvis 05/11/23 RIGHT [...] 05/14/2023 04:39 pm) PATIENT INFO: ID #: [id number] : [birth year] (67 yrs)(F) Name: PURNIMA THACKER Visit Date: 05/14/2023 03:44 pm PERFORMED BY: Attending: Hayden Robledo MD Resident: Anand Camejo MD Performed By: Consuelo Tello RDMS Referred By: ALIRIO HUDSON Location: [place] SERVICE(S) PROVIDED: URETRO - Retroperitoneal Complete - [id number] INDICATIONS: EVANS COMPARISON: CT: Abdomen/Pelvis 05/11/23 RIGHT [...] signed by: Hayden Robledo MD, [facility] ([phone]), at 05/14/2023 4:32 PM Thank you for letting us participate in the care of this patient. If you are a health care provider and have any questions regarding this report, please contact the number above. For patients who have questions, please contact the health associate director career services that requested your imaging first. Hayden Robledo, [...] ORDERABLE S Performing Organization Address [facility] Co de Phone Number [facility] [place] [address] * (ABNORMAL) Uric acid (05/14/2023 3:17 PM EDT) Uric Acid 14.9(H) 2.5 - 6.5 mg/dL [facility] Blood 05/14/2023 3:17 PM EDT 05/14/2023 3:31 PM EDT Narrative Resulting Agency Comment Spec In Lab Alirio Hudson MD CHEMISTRY ORDERABLE S Performing Organization Address [facility] Co de Phone Number [facility] [place] [address] * (ABNORMAL) Osmolality (05/14/2023 3:17 PM EDT) Osmolality 311(H) 275 - 295 mOsm/kg [facility] Blood 05/14/2023 3:17 PM EDT 05/14/2023 3:31 PM EDT Narrative Resulting Agency Comment Spec In Lab Alirio Hudson MD CHEMISTRY ORDERABLE S [facility] [place] [address] * (ABNORMAL) Differential, Automated (05/14/2023 1:10 AM EDT) Neutrophil % 87.2 % [facility] Neutrophil Absolute 9.74(H) 1.70 - 6.10 x10(3)/mc L [facility] Lymph % 3.9 % [facility] Lymphocytes Abs 0.4(L) 0.9 - 3.2 x10(3)/mc L [facility] Monocyte % 7.9 % [facility] Monocyte Abs 0.9 0.3 - 0.9 x10(3)/mc L [facility] Eos % 0.0 % [facility] Eosinophils Abs 0.0 0.0 - 0.4 x10(3)/mc L [facility] Basophil % 0.1 % [facility] Baso Absolute 0.0 0.0 - [...] HEMATOLOGY ORDERABLE S [facility] [place] [address] * (ABNORMAL) Hemogram (05/14/2023 1:10 AM EDT) [...] [facility]AL HOSPITAL [facility] NRBC% auto 1.5 % [facility] NRBC Absolute 0.170(H) 0.000 - 0.000 x10(3)/mc L [facility] Blood 05/14/2023 1:10 AM EDT 05/14/2023 1:24 AM EDT Narrative Resulting Agency Comment Spec In Lab Bonita TOBAR HEMATOLOGY ORDERABLE S [facility] [place] [address] * (ABNORMAL) Comprehensive metabolic panel (non-fasting) (05/14/2023 [...] ORDERABLE S Performing Organization Address [facility] Co de Phone Number [facility] [place] [address] * APTT (05/13/2023 10:15 AM EDT) Partial [...] ES Performing Organization Address [facility] Co de Phone Number [facility] [place] [address] * (ABNORMAL) Prothrombin Time (05/13/2023 10:15 AM EDT) Prothrombin Time 14.6(H) 9.4 - 12.5 sec [facility] International Normalization Ratio 1.3 [facility] [...] ORDERABL ES Performing Organization Address [facility] Co de Phone Number [facility] [place] [address] * EKG 12 Lead (05/13/2023 9:22 AM EDT) Ventricular rate 92 BPM MUSE SYSTEM Atrial Rate 92 BPM MUSE SYSTEM P-R Interval 140 ms MUSE SYSTEM QRS Duration 104 ms MUSE SYSTEM Q-T Interval 384 ms MUSE SYSTEM QTC Calculated (Bezet) 474 ms MUSE SYSTEM Calculated P [place] 33 degrees MUSE SYSTEM Calculated R [place] 41 degrees MUSE SYSTEM Calculated T [place] -35 degrees MUSE SYSTEM INTERPRETATION Sinus rhythm with frequent Premature ventricular complexes Septal infarct , age undetermined ST & T wave abnormality, consider lateral ischemia Abnormal ECG When compared with ECG of 12-MAY-2023 10:10, Premature ventricular complexes are now Present I personally reviewed the tracing and edited the fellows interpretation Confirmed by fellow MD Anitha, Carissa ([id number]) on 05/13/2023 3:25:30 PM Confirmed by Maxx Best ([id number]) on 05/13/2023 8:30:56 PM MUSE SYSTEM 05/13/2023 9:22 AM EDT 05/13/2023 8:30 PM EDT Alirio Hudson MD ECG ORDERABLES MUSE SYSTEM * (ABNORMAL) Differential, Automated (05/13/2023 1:15 AM EDT) Neutrophil % 88.1 % [facility] Neutrophil Absolute 7.62(H) 1.70 - 6.10 x10(3)/mc L [facility] Lymph % 3.1 % [facility] Lymphocytes Abs 0.3(L) 0.9 - 3.2 x10(3)/mc L [facility] Monocyte % 7.9 % [facility] Monocyte Abs 0.7 0.3 - 0.9 x10(3)/mc L [facility] Eos % 0.0 % [facility] Eosinophils Abs 0.0 0.0 - 0.4 x10(3)/mc L [facility] Basophil % 0.1 % [facility] Baso Absolute 0.0 [...] HEMATOLOGY ORDERABLE S [facility] [place] [address] * (ABNORMAL) Hemogram (05/13/2023 1:15 AM EDT) White Blood Cell 8.6 4.0 - 9.5 x10(3)/mc L [facility] Red Blood Cell 2.37(L) 4.00 - 5.21 x10(6)/mc L [facility] [...] Platelet 130(L) 145 - 357 x10(3)/mc L [facility] RDW Standard Deviation 41.7 37.0 - 46.0 fL [facility] RDW coefficient of variation 12.5 11.5 - 14.1 % [facility] Mean Platelet Volume 10.2 7.6 - 12.9 fL [facility] NRBC% auto 0.5 % [facility] NRBC Absolute 0.040(H) 0.000 - 0.000 x10(3)/mc L [facility] Blood 05/13/2023 1:15 AM EDT 05/13/2023 1:29 AM EDT Narrative Resulting Agency Comment Spec In Lab Lorri TOBAR HEMATOLOGY ORDERABLE S Performing Organization Address City/[facility]/ZIP Co de Phone Number [facility] [place] [address] * (ABNORMAL) Hepatic Function Panel (05/13/2023 1:15 AM EDT) Protein, Total 5.5(L) 6.1 - 8.0 g/dL [facility] Albumin 3.0(L) 3.2 - 5.2 g/dL [facility] Aspartate Aminotransferase 792(H) 0 - 30 unit/L [facility] Alanine Aminotransferase 903(H) 0 [...] ORDERABLE S Performing Organization Address [facility] Co de Phone Number [facility] [place] [address] * (ABNORMAL) Basic Metabolic Panel (non-fasting) (05/13/2023 1:15 AM EDT) Pathologist [facility] Glucose 107 65 - 199 mg/dL [facility] Comment:Diabetes: >=200 mg/d L plus symptoms Blood Urea Nitrogen 82(H) 8 - 18 mg/dL [facility] Creatinine 3.15(H) 0.70 - 1.20 mg/dL [facility] Comment:result rechecked-OG Sodium 132(L) 135 - 145 mmol/L [facility] Potassium 3.8 3.5 - 5.0 [...] City/State/[facility] Co de Phone Number [facility] [place] [address] * (ABNORMAL) BLOOD GAS 2 ARTERIAL (05/12/2023 [...] Whole Bld 178 65 - 199 mg/dL [facility] Comment:Diabetes: >=200 mg/d L plus symptoms. Lactate WB 1.5 0.5 - 2.2 mmol/L [facility] FIO2 Art 40 % [facility] PF Ratio Art 252 [facility] Blood 05/12/2023 3:57 PM EDT 05/12/2023 3:57 PM EDT Alirio Hudson MD POINT OF CARE TEST ORDERABLES [facility] [place] [address] * (ABNORMAL) Coox2 (05/12/2023 2:25 PM EDT) pO2, Coox 37 mmHg [facility] Hgb Blood Gas 9.5(L) 11.7 - 15.5 g/dL [facility] Oxyhemoglobin, Coox 59.9 % [facility] Carboxyhemoglo bin, Coox 0.3 % [facility] Comment: Nonsmokers: 0.5-1.5% COHB Smokers: Variable, but usually less than 10% Toxic: 20-30% COHB Lethal: Greater than 60% COHB Methemoglobin, Coox 0.7 <=1.5 % [facility] Source Coox Mixed Venous [facility] Blood 05/12/2023 2:25 PM EDT 05/12/2023 2:25 PM EDT Alirio Hudson MD POINT OF CARE TEST ORDERABLES [facility] [place] [address] * (ABNORMAL) BLOOD GAS 2 ARTERIAL (05/12/2023 [...] HOSPITAL LABORATORY Carboxyhemoglob in, Arterial 0.3 % [facility] Comment: Nonsmokers: 0.5-1.5% COHB Smokers: Variable, but usually less than 10% Toxic: 20-30% COHB Lethal: Greater than 60% COHB Methemoglobin, Arterial 0.7 <=1.5 % [facility] Na Whole Blood 129(L) 135 - 145 mmol/L [facility] K Whole Blood 3.7 3.5 - 5.0 mmol/L [facility] Comment: Please note: Patients with WBC >100,000 may have falsely elevated Potassium levels. Contact the Clinical Chemistry Laboratory if there are any questions. ICa Whole Blood 1.05(L) 1.15 - 1.33 mmol/L [facility] Comment: Note: ??Total bilirubin higher than 20 mg/dL may lead to falsely low ionized calcium. CL Whole Blood 95(L) 98 - 107 mmol/L [facility] Gluc Whole Bld 168 65 - 199 mg/dL [facility] Comment:Diabetes: >=200 mg/d L plus symptoms. Lactate WB 1.8 0.5 - 2.2 mmol/L [facility] FIO2 Art 40 % [facility] PF Ratio Art 255 [facility] Blood 05/12/2023 2:23 PM EDT 05/12/2023 2:23 PM EDT Alirio Hudson MD POINT OF CARE TEST ORDERABLES Performing Organization Address City/[facility]/[place] [address] * (ABNORMAL) Troponin (05/12/2023 2:05 PM EDT) [...] troponin value can be found in the [facility] Test Catalog Troponin - [facility] Test Catalog Reference: Fourth [place] Definition of Myocardial Infarction. Journal of the [place] [employer] 2018;72:5756-0994 Blood 05/12/2023 2:05 PM EDT 05/12/2023 2:14 PM EDT Narrative Resulting Agency Comment Spec In Lab Alirio Hudson MD CHEMISTRY ORDERABLE S Performing Organization Address City/[facility]/ZIP Co de Phone Number [facility] [place] [address] * (ABNORMAL) Hemoglobin (05/12/2023 2:05 PM EDT) Pathologist [facility] Hemoglobin 8.5(L) 11.7 - 15.5 g/dL [facility] Blood 05/12/2023 2:05 PM EDT 05/12/2023 2:14 PM EDT Narrative Resulting Agency Comment Spec In Lab Alirio Hudson MD HEMATOLOGY ORDERABL ES Performing Organization Address [facility] Co de Phone Number [facility] [place] [address] * Potassium (05/12/2023 2:05 PM EDT) [facility] Potassium 3.9 3.5 - 5.0 mmol/L [facility] [...] ORDERABLE S Performing Organization Address [facility] [facility] Co de Phone Number [facility] [place] [address] * (ABNORMAL) BLOOD GAS 2 ARTERIAL (05/12/2023 11:05 AM EDT) pH, Arterial 7.34(L) 7.35 - 7.45 [facility] PCO2, Arterial 42 35 - 45 mmHg [facility] PO2, Arterial 73(L) 85 - 104 mmHg [facility] Bicarbonate, Arterial 22.1 20.0 - 26.0 mmol/L [facility] Base Excess, Arterial -3.6(L) -3.0 - 3.0 mmol/L [facility] Hgb Blood Gas 9.3(L) 11.7 - 15.5 g/dL [facility] Oxyhemoglobin, Arterial 89.3(L) 94.0 - 97.0 % [facility] Carboxyhemoglob in, Arterial 0.2 % [facility] Comment: Nonsmokers: 0.5-1.5% COHB Smokers: Variable, but usually less than 10% Toxic: 20-30% COHB Lethal: Greater than 60% COHB Methemoglobin, Arterial 0.9 <=1.5 % [facility] Na Whole Blood 131(L) 135 - 145 mmol/L [facility] K Whole Blood 3.8 [...] Lactate WB 2.8(H) 0.5 - 2.2 mmol/L [facility] FIO2 Art 40 % [facility] PF Ratio Art 182 [facility] Blood 05/12/2023 11:0 5 AM EDT 05/12/2023 11:05 AM EDT Alirio Hudson MD POINT OF CARE TEST ORDERABLES Performing Organization Address City/State/[facility] Co de Phone Number [facility] [place] [address] * (ABNORMAL) BLOOD GAS 2 ARTERIAL (05/12/2023 10:14 AM EDT) pH, Arterial 7.18(Criti gabrielle) 7.35 - 7.45 [facility] Comment:Noted by instrumentation specialist. PCO2, Arterial 45 35 - 45 mmHg [facility] PO2, Arterial 186(H) 85 - 104 mmHg [facility] Bicarbonate, Arterial 16.2(L) 20.0 - 26.0 mmol/L [facility] Base Excess, Arterial -12.2(L) -3.0 - 3.0 mmol/L [facility] Hgb Blood Gas 10.0(L) 11.7 - 15.5 g/dL [facility] Oxyhemoglobin, Arterial 97.0 94.0 - 97.0 % [facility] Carboxyhemoglob in, Arterial 0.2 % [facility] Comment: Nonsmokers: 0.5-1.5% COHB Smokers: Variable, but usually less than 10% Toxic: 20-30% COHB Lethal: Greater than 60% COHB Methemoglobin, Arterial 0.9 <=1.5 % [facility] Na Whole Blood 129(L) 135 - 145 mmol/L [facility] K Whole Blood 3.6 [...] Whole Blood 97(L) 98 - 107 mmol/L [facility] Gluc Whole Bld 161 65 - 199 mg/dL [facility] Comment:Diabetes: >=200 mg/d L plus symptoms. Lactate WB 3.3(H) 0.5 - 2.2 mmol/L [facility] FIO2 Art 100 % [facility] PF Ratio Art 186 [facility] Blood 05/12/2023 10:1 4 AM EDT 05/12/2023 10:14 AM EDT Alirio Hudson MD POINT OF CARE TEST ORDERABLES [facility] [place] [address] * EKG 12 Lead (05/12/2023 10:10 AM EDT) Ventricular rate 116 BPM MUSE SYSTEM Atrial Rate 116 BPM MUSE SYSTEM P-R Interval 158 ms MUSE SYSTEM QRS Duration 114 ms MUSE SYSTEM Q-T Interval 348 ms MUSE SYSTEM QTC Calculated (Bezet) 483 ms MUSE SYSTEM Calculated P [place] 37 degrees MUSE SYSTEM Calculated R [place] 31 degrees MUSE SYSTEM Calculated T [place] -138 degrees MUSE SYSTEM INTERPRETATION Sinus tachycardia with intermittent aberrant ventricular conduction Possible Left atrial enlargement Incomplete left bundle block Left ventricular hypertrophy with repolarization abnormality ( Sokolow-Orozco , [place] product ) ST & T wave abnormality in Inferolateral leads Abnormal ECG When compared with ECG of 10-MAY-2023 13:16, ST & T wave abnormality is more pronounced in inferolateral leads I personally reviewed the tracing and edited the fellows interpretation Confirmed by fellow MD Anuja, Jim ([id number]) on 05/12/2023 1:04:20 PM Confirmed by MD Mono, Eleni ([id number]) on 05/12/2023 9:28:34 PM MUSE SYSTEM 05/12/2023 [...] who have questions please contact the health associate director career services that requested your imaging first. ? Electronically signed by: Chyna Johnson MD, [facility] ??([phone]), at 05/12/2023 10:08 AM Narrative 05/12/2023 10:08 AM EDT EXAMINATION: XR CHEST ONE VIEW CLINICAL HISTORY: Post TAVR TECHNIQUE: 1 view of the chest COMPARISON: Chest radiograph from earlier today FINDINGS: Interval placement of endotracheal tube with tip terminating 2 cm above the shira. Interval placement of enteric tube projecting along the expected course of the esophagus and outside the rknun-jc-aagb. Interval retraction of right IJ approach pulmonary [...] expected course ofthe esophagus and outside the yuoxg-vk-qeqn. Interval retraction of right IJ approach pulmonary [...] patients who have questions please contactthe health associate director career services that requested your imaging first. Electronically signed by: Chyna Johnson MD, [facility]([phone]), at 05/12/2023 10:08 AM Alirio Hudson MD IMG DX ORDERABLES * ECHO LMTD W/O CONTRAST W LMTD SPEC DOPP COLOR DOPP (05/12/2023 9:23 AM EDT) EF 20 HEARTApprats SYSTEM Anatomical Region Laterality Modality Cardiac Other 05/12/2023 7:33 AM EDT Narrative 05/12/2023 10:18 AM EDT ? Echocardiogram Report Name: PURNIMA THACKER ?Study Date: 05/12/2023 07:33 AMBP: 96/63 mmHg ? Patient Location: [place]06 A : 1955 ? Height: 154 cm ? Account: [id number] Age: 67 yrs ? Weight: 75 kg Gender: Female ?BSA: 1.7 m2 Ordering Physician: RADHA HOLLINS Referring Physician: RADHA HOLLINS Performed By: Dilma eBe RDCS Reason For Study: Guidance for TAVR procedure Exam Location: [facility]. Interpretation Summary PRE TAVR: [...] mL/m2. POST TAVR: Normal function of the jmjfu-og-yelmy prosthesis. See below for hemodynamic parameters. Slight improvement in left and right ventricular systolic function. LVEF now 20-25%. No pericardial effusion. See report for additional findings. Procedure Limited - 70143. Doppler - 92451. Color Doppler - 85479. Left Ventricle Left ventricle is of normal [...] Date: 307:33 AMBP: 96/63 mmHg Patient Location: [address] : 1955 Height: 154 cm Account: [id number] Age: 67 yrs Weight: 75 kg Gender: Female BSA: 1.7 m2 Ordering Physician: RADHA HOLLINS Referring Physician: RADHA HOLLINS Performed By: Dilma Bee RDCS Reason For Study: Guidance for TAVR procedure Exam Location: [facility]. Interpretation Summary PRE TAVR: [...] 28mL/m2. POST TAVR: Normal function of the poxil-jw-pexpn prosthesis. See belowfor hemodynamic parameters. Slight improvement in left and right ventricularsystolic function. LVEF now 20-25%. No pericardial effusion. See report for additional findings. Procedure Limited - 77104. Doppler - 95496. Color Doppler - 76987. Left Ventricle Left ventricle is of normal [...] Modality Other Narrative 05/12/2023 2:37 PM EDT ?[facility] ? Cardiac Catheterization/Intervention Report ? Patient Name: Purnima Thacker. ? Procedure Date: 05/12/2023 ? A #: [id number] ? Primary Physician: Antelmo Sharma ? Case #: [id number] ? File Name: [id number] ? Catheterization Order Number: [id number] ? [facility] ? Final Report [place], [place] ? Patient Name: ? Purnima M. Kirstie ? ID#: ?[id number] ? : ?1955 ? Procedure Date: ? May 12, 2023 ? Case #: ? [id number] ? Room: ? 6 ? Case [...] Device Deployment ?* Temporary Pacemaker Insertion In Motorcycle Tester ?* Endotracheal Intubation By Non-Cath Physician ?* [...] ??A premounted 4.00 x 30 mm Nils [place] (MINNA) was ? deployed with a maximum [...] calculated STS risk score was 30.1%. A tclxy-pc-wukxg ?procedure was performed on the pre-existing bioprosthetic stented ?prosthesis. The priority of the ospvk-ww-efjjt procedure was Elective. ?The procedure was performed [...] Lai 3 Ultra RESILIA 23 mm THV (s/c=[id number]) transcatheter ?valve was inserted using standard technique. [...] to nor was it given in the ?labor relations analyst. ?Recommended anti-platelet/anti-thrombotic regimen: ?Continue aspirin 81 [...] regimen. ? Comments: ?Successful right transfemoral TAVR Zlpap-lf-Vjykc with a 23 mm Lai 3 ?THV. [...] insertion-coronary, access site angiography, ?temporary pacemaker in labor relations analyst, intubation-non cath physician, vascular ?closure device, transthoracic echo ??and TAVR. Dr. Alirio Hudson M.D. ?performed the left heart catheterization, access site angiography, ?temporary pacemaker in labor relations analyst, vascular closure device, transthoracic ?echo , TAVR and CPR during cath. Dr. Lynda Mcgowan M.D. performed the ABG, ?anesthesia and intubation-non cath physician. ? Antelmo Sharma M.D. ? Electronically Signed by: Antelmo Sharma M.D. ? Report Finalized: 05/12/2023 ??14:31 ? Report Last Ammended: 07/01/2023 ??11:30 ? Procedure Note Antelmo Sharma MD - 07/01/2023 [facility] Cardiac Catheterization/Intervention Report Patient Name: Purnima ThackerKaylie Procedure Date: 05/12/2023 A #: [id number] Primary Physician: Antelmo Sharma Case #: [id number] File Name: [id number] Catheterization Order Number: [id number] [facility] FinalReport [place], [place] Patient Name: Purnima Thacker ID#:[id number] :1955 Procedure Date: May 12, 2023 Case #: [id number] Room: 6 Case Physicians: Antelmo Sharma M.D. Start: 08:03 Alirio Hudson M.D. Admission:05/08/2023 Lynda Mcgowan M.D. Discharge:05/22/2023 Fellow: Rebekah Tejeda M.D. Referring Physician: Mario Alberto Chin M.D. Procedures: * Coronary Angiography * Left Heart Catheterization * Coronary Stent Insertion * Transcatheter Aortic Valve Replacement * Vascular Closure Device Deployment * Temporary Pacemaker Insertion In Motorcycle Tester * Endotracheal Intubation By Non-Cath Physician * [...] A premounted 4.00 x 30 mm Nils [place] (MINNA) was deployed with a maximum inflation [...] calculated STS risk score was 30.1%. A hquzo-if-kzain procedure was performed on the pre-existing bioprosthetic stented prosthesis. The priority of the oalck-kn-prvov procedure wasElective. The procedure was performed under Moderate sedation performed byLynda Mcgowan M.D. (see anesthesia report for additional details). Alirio Hudson M.D. participated in the case (see Cardiac Surgery reportfor additional details). The TAVR sheath was a 14 Fr Corona eSheath Introducer and theaccess site was femoral. Rapid ventricular pacing was performed. An Corona Lai 3 Ultra RESILIA 23 mm THV (s/j=[id number])transcatheter valve was inserted using standard technique. The [...] prior to nor was it given inthe labor relations analyst. Recommended anti-platelet/anti-thrombotic regimen: Continue aspirin 81 [...] this regimen. Comments: Successful right transfemoral TAVR Hklzd-gj-Cwdav with a 23 mmSapien 3 THV. We [...] insertion-coronary, access site angiography, temporary pacemaker in labor relations analyst, intubation-non cath physician,vascular closure device, transthoracic echo and TAVR. Dr. Alirio Hudson M.D. performed the left heart catheterization, access site angiography, temporary pacemaker in labor relations analyst, vascular closure device,transthoracic echo , TAVR [...] 7.45 [facility] Comment:Critical value OK, C C Lab. pCO2, POC 42 35 - 45 mmHg [facility] pO2, POC 260(H) 85 - 104 mmHg [facility] Base Excess, POC -11.0(L) -3.0 - 3.0 mmol/L [facility] Bicarbonate, POC 16.7(L) 20.0 - 26.0 mmol/L [facility] Sodium, POC 129(L) 135 - 145 mmol/L [facility] POC Potassium 3.8 3.5 - 5.0 mmol/L [facility] Ionized Calcium, POC 1.12(L) 1.15 - 1.33 mmol/L [facility] POC Hematocrit 23.0(L) 34.0 - 45.0 % [facility] POC Calc Hgb 7.8(L) 11.2 - 15.7 g/dL [facility] Comment:The calculation of h emoglobin from hematocrit assumes a normal MCHC. POC Bgas Loc CC Lab [facility] Blood 05/12/2023 8:50 AM EDT 05/13/2023 12:00 PM EDT Alirio Hudson MD CHEMISTRY ORDERABLE S [facility] [place] [address] * (ABNORMAL) Point of Care Blood Gas Historical (05/12/2023 8:10 AM EDT) pH, POC 7.27(Crit ical) 7.35 - 7.45 [facility] Comment:Critical value Yamel KRAUSE C Lab. pCO2, POC 37 35 - 45 mmHg [facility] pO2, POC 29(Critic al) 85 - 104 mmHg [facility] Comment:Critical value JIMI C C Lab. Base Excess, POC -10.0(L) -3.0 - 3.0 mmol/L [facility] Bicarbonate, POC 16.7(L) 20.0 - 26.0 mmol/L [facility] Sodium, POC 123(L) 135 - 145 mmol/L [facility] POC Potassium 4.0 3.5 - 5.0 mmol/L [facility] Ionized Calcium, POC 1.12(L) 1.15 - 1.33 mmol/L [facility] POC Hematocrit 27.0(L) 34.0 - 45.0 % [facility] POC Calc Hgb 9.2(L) 11.2 - 15.7 g/dL [facility] Comment:The calculation of h emoglobin from hematocrit assumes a normal MCHC. POC Bgas Loc CC Lab [facility] Blood 05/12/2023 8:10 AM EDT 05/13/2023 12:00 PM EDT Alirio Hudson MD CHEMISTRY ORDERABLE S Performing Organization Address City/[facility]/ZIP Co de Phone Number [facility] [place] [address] * (ABNORMAL) Lactate, whole blood, send to lab ([facility] (05/12/2023 7:00 AM EDT) Lactate WB 2.4(H) 0.5 - 2.2 mmol/L [facility] Blood 05/12/2023 7:00 AM EDT 05/12/2023 7:09 AM EDT Narrative Resulting Agency Comment Spec In Lab Radha Hollins MD CHEMISTRY ORDERABL ES Performing Organization Address [facility] Co de Phone Number [facility] [place] [address] * (ABNORMAL) Comprehensive metabolic panel (non-fasting) (05/12/2023 6:00 AM EDT) Glucose 167 65 - 199 mg/dL [facility] Comment:Diabetes: >=200 mg/d L plus symptoms Blood Urea Nitrogen 67(H) 8 - 18 mg/dL [facility] Creatinine 2.01(H) 0.70 - [...] ES [facility] [place] [address] * (ABNORMAL) Coox2 (05/12/2023 5:08 AM EDT) pO2, Coox 24 mmHg [facility] Hgb Blood Gas 10.4(L) 11.7 - 15.5 g/dL [facility] Oxyhemoglobin, Coox 30.7 % [facility] Carboxyhemoglo bin, Coox 0.3 % [facility] Comment: Nonsmokers: 0.5-1.5% COHB Smokers: Variable, but usually less than 10% Toxic: 20-30% COHB Lethal: Greater than 60% COHB Methemoglobin, Coox 0.8 <=1.5 % [facility] Source Coox Mixed Venous [facility] Blood 05/12/2023 5:08 AM EDT 05/12/2023 5:08 AM EDT Radha Hollins MD POINT OF CARE TEST ORDERABLES [facility] [place] [address] * (ABNORMAL) Coox2 (05/12/2023 3:21 AM EDT) pO2, Coox 25 mmHg [facility] Hgb Blood Gas 10.8(L) 11.7 - 15.5 g/dL [facility] Oxyhemoglobin, Coox 32.7 % [facility] Carboxyhemoglo bin, Coox 0.3 % [facility] Comment: Nonsmokers: 0.5-1.5% COHB Smokers: Variable, but usually less than 10% Toxic: 20-30% COHB Lethal: Greater than 60% COHB Methemoglobin, Coox 0.7 <=1.5 % [facility] Source Coox Mixed Venous [facility] Blood 05/12/2023 3:21 AM EDT 05/12/2023 3:21 AM EDT Radha Hollins MD POINT OF CARE TEST ORDERABLES [facility] [place] [address] * (ABNORMAL) BLOOD GAS 2 ARTERIAL (05/12/2023 3:18 AM EDT) pH, Arterial 7.34(L) 7.35 - 7.45 [facility] PCO2, Arterial 30(L) 35 - 45 mmHg [facility] PO2, Arterial 72(L) 85 - 104 mmHg [facility] Bicarbonate, Arterial 16.0(L) 20.0 - 26.0 mmol/L [facility] Base Excess, Arterial -9.8(L) -3.0 - 3.0 mmol/L [facility] Hgb Blood Gas 11.0(L) 11.7 - 15.5 g/dL [facility] Oxyhemoglobin, Arterial 89.8(L) 94.0 - 97.0 % [facility] Carboxyhemoglob in, Arterial 0.3 % [facility] Comment: Nonsmokers: 0.5-1.5% COHB Smokers: Variable, but usually less than 10% Toxic: 20-30% COHB Lethal: Greater than 60% COHB Methemoglobin, Arterial 0.7 <=1.5 % [facility] Na Whole Blood 131(L) 135 - 145 mmol/L [facility] K Whole Blood 4.2 3.5 - 5.0 mmol/L [facility] Comment: Please note: Patients with WBC >100,000 may have falsely elevated Potassium levels. Contact the Clinical Chemistry Laboratory if there are any questions. ICa Whole Blood 1.12(L) 1.15 - 1.33 mmol/L [facility] Comment: Note: ??Total bilirubin higher than 20 mg/dL may lead to falsely low ionized calcium. CL Whole Blood 100 98 - 107 mmol/L [facility] Gluc Whole Bld 160 65 - 199 mg/dL [facility] Comment:Diabetes: >=200 mg/d L plus symptoms. Lactate WB 2.7(H) 0.5 - 2.2 mmol/L [facility] Flow Art 5.0 LPM [facility] Blood 05/12/2023 3:18 AM EDT 05/12/2023 3:18 AM EDT Radha Hollins MD POINT OF CARE TEST ORDERABLES [facility] [place] [address] * (ABNORMAL) Coox2 (05/12/2023 1:14 AM EDT) pO2, Coox 28 mmHg [facility] Hgb Blood Gas 10.9(L) 11.7 - 15.5 g/dL [facility] Oxyhemoglobin, Coox 37.3 % [facility] Carboxyhemoglo bin, Coox 0.3 % [facility] Comment: Nonsmokers: 0.5-1.5% COHB Smokers: Variable, but usually less than 10% Toxic: 20-30% COHB Lethal: Greater than 60% COHB Methemoglobin, Coox 0.5 <=1.5 % [facility] Source Coox Mixed Venous [facility] Blood 05/12/2023 1:14 AM EDT 05/12/2023 1:14 AM EDT Radha Hollins MD POINT OF CARE TEST ORDERABLES [facility] [place] [address] * (ABNORMAL) BLOOD GAS 2 ARTERIAL (05/12/2023 [...] HOSPITAL LABOR[facility] Carboxyhemoglob in, Arterial 0.2 % [facility] Comment: Nonsmokers: 0.5-1.5% COHB Smokers: Variable, but usually less than 10% Toxic: 20-30% COHB Lethal: Greater than 60% COHB Methemoglobin, Arterial 0.6 <=1.5 % [facility] Na Whole Blood 131(L) [...] [facility] Flow Art 5.0 LPM [facility] Blood 05/12/2023 1:06 AM EDT 05/12/2023 1:06 AM EDT Radha Hollins MD POINT OF CARE TEST ORDERABLES Performing Organization Address City/State/[facility] Co de Phone Number [facility] [place] [address] * (ABNORMAL) Differential, Automated (05/12/2023 1:05 AM EDT) Neutrophil % 83.3 % [facility] Neutrophil Absolute 7.49(H) 1.70 - 6.10 x10(3)/mc L [facility] Lymph % 7.1 % [facility] Lymphocytes Abs 0.6(L) 0.9 - 3.2 x10(3)/mc L [facility] Monocyte % 8.9 % [facility] Monocyte Abs 0.8 0.3 - 0.9 x10(3)/mc L [facility] Eos % 0.0 % [facility] Eosinophils Abs 0.0 0.0 - 0.4 x10(3)/mc L [facility] Basophil % 0.1 % [facility] Baso Absolute 0.0 0.0 - [...] HEMATOLOGY ORDERABLE S [facility] [place] [address] * (ABNORMAL) Hemogram (05/12/2023 1:05 AM EDT) White Blood Cell 9.0 4.0 - 9.5 x10(3)/[facility] Red Blood Cell 3.01(L) 4.00 - [...] [facility] NRBC% auto 0.0 % [facility] NRBC Absolute 0.000 0.000 - 0.000 x10(3)/ L [facility] Blood 05/12/2023 1:05 AM EDT 05/12/2023 1:15 AM EDT Narrative Resulting Agency Comment Spec In Lab Gianni Fletcher MD HEMATOLOGY ORDERABLE S [facility] [place] [address] * (ABNORMAL) Comprehensive metabolic panel (non-fasting) (05/12/2023 [...] Aspartate Aminotransferase 1,227(H) 0 - 30 unit/L [facility] Alanine Aminotransferase 1,097(H) 0 - 30 unit/L [facility] Alkaline Phosphatase 108(H) 35 [...] CHEMISTRY ORDERABL ES [facility] [place] [address] * XR Chest One View (05/12/2023 1:00 [...] who have questions please contact the health associate director career services that requested your imaging first. ? Electronically signed by: Will Rowe MD, [facility] ([phone]), at 05/12/2023 3:16 AM Narrative 05/12/2023 3:16 [...] patients who have questions please contactthe health associate director career services that requested your imaging first. Electronically signed by: Will Rowe MD, [facility]([phone]), at 05/12/2023 3:16 AM Radha Hollins MD IMG DX ORDERABLES * (ABNORMAL) Coox2 (05/12/2023 12:30 AM EDT) pO2, Coox 22 mmHg [facility] Hgb Blood Gas 10.9(L) 11.7 - 15.5 g/dL [facility] Oxyhemoglobin, Coox 25.1 % [facility] Carboxyhemoglo bin, Coox 0.3 % [facility] Comment: Nonsmokers: 0.5-1.5% COHB Smokers: Variable, but usually less than 10% Toxic: 20-30% COHB Lethal: Greater than 60% COHB Methemoglobin, Coox 1.4 <=1.5 % [facility] Source Coox Mixed Venous [facility] Blood 05/12/2023 12:3 0 AM EDT 05/12/2023 12:30 AM EDT Radha Hollins MD POINT OF CARE TEST ORDERABLES [facility] [place] [address] * XR Chest One View (05/11/2023 11:45 [...] who have questions please contact the health associate director career services that requested your imaging first. ? Electronically signed by: Will Rowe MD, [facility] ([phone]), at 05/11/2023 11:57 PM Narrative 05/11/2023 11:57 [...] patients who have questions please contactthe health associate director career services that requested your imaging first. Electronically signed by: Will Rowe MD, [facility]([phone]), at 05/11/2023 11:57 PM Radha Hollins MD IMG DX ORDERABLES * (ABNORMAL) Lactate, whole blood, send to lab ([facility] (05/11/2023 7:40 PM EDT) Lactate WB 4.8(Critic al) 0.5 - 2.2 mmol/L [facility] Comment:Called by: IMM, Read back by: Magdalena Baires, Date/Time:05/11/23 19:54. Blood 05/11/2023 7:40 PM EDT 05/11/2023 7:49 PM EDT Narrative Resulting Agency Comment Spec In Lab Radha Hollins MD CHEMISTRY ORDERABL ES Performing Organization Address [facility] Co de Phone Number [facility] [place] [address] * Urine culture (05/11/2023 7:22 PM EDT) [...] - GENE RAL ORDERABLES Performing Organization Address [facility] de Phone Number [facility] [place] [address] * (ABNORMAL) Urinalysis Microscopic Exam (05/11/2023 7:22 [...] In Lab Brody Kaplan APRN URINE ORDERABLES [facility] [place] [address] * (ABNORMAL) Urinalysis with reflex Culture (05/11/2023 [...] Cloudy(A) Clear [facility] Specific House Urine Automated >=1.030(A) 1.005 - 1.030 [facility] Color, Urine Dipstick Yellow Yellow [facility] Reflex to Culture Yes [facility] Clean Catch Urine 05/11/2023 7:22 PM EDT 05/11/2023 7:31 PM EDT Narrative Resulting Agency Comment Spec In Lab Brody Kaplan CONTAINER SHOP WELDER URINE ORDERABLES [facility] [place] [address] * (ABNORMAL) pro-Brain Natriuretic Peptide (05/11/2023 7:11 PM EDT) NT-proBNP >35,000(H) <=124 pg/mL [facility] Blood 05/11/2023 7:11 PM EDT 05/11/2023 7:26 PM EDT Narrative Resulting Agency Comment Spec In Lab Radha Hollins MD CHEMISTRY ORDERABL ES Performing Organization Address [facility]/ZIP Co de Phone Number [facility] [place] [address] * (ABNORMAL) Lactate, whole blood, send to lab ([facility]) (05/11/2023 2:47 PM EDT) Lactate WB 2.9(H) 0.5 - 2.2 mmol/L [facility] Blood 05/11/2023 2:47 PM EDT 05/11/2023 2:53 PM EDT Narrative Resulting Agency Comment Spec In Lab Juan Luis Gonzalez MD CHEMISTRY ORDERABLES Performing Organization Address [facility] Co de Phone Number [facility] [place] [address] * (ABNORMAL) CT Angiogram Abdomen & Pelvis [...] who have questions please contact the health associate director career services that requested your imaging first. ? Narrative [...] lesion. Resulting Agency Comment Unexpected Finding Antelmo LLAMAS CT ORDERABLES * CT Cardiac for Morphology [...] who have questions please contact the health associate director career services that requested your imaging first. ? Electronically signed by: Cullen Narayanan MD, [facility] ([phone]), at 05/11/2023 4:37 PM Narrative 05/11/2023 4:37 [...] 610 mm2 Circumference: 88 mm Calcification: Mild Nqwddwz-vk-noglgiss height: Left: 6.2 mm Right: 5.8 mm THORACIC AORTA Description: Normal course and caliber. ??Mild diffuse atherosclerotic changes. No acute aortopathy noted. Scientific Research Manager dimensions: Aortic root: 27.6 mm Max ascending aorta: 30.5 mm x 27.7 mm Suggested fluoroscopic angulation based on line extending through the nadirs of the three sinuses of Valsalva, set equidistant: ?? NIGERIEN ??9 degrees; cranial 7 degrees MITRAL: Mitral [...] 610 mm2 Circumference: 88 mm Calcification: Mild Esnnbsk-ru-nqhwvgeu height: Left: 6.2 mm Right: 5.8 mm THORACIC AORTA Description: Normal course and caliber. Mild diffuse atheroscleroticchanges. No acute aortopathy noted. Scientific Research Manager dimensions: Aortic root: 27.6 mm Max ascending aorta: 30.5 mm x 27.7 mm Suggested fluoroscopic angulation based on line extending through thenadirs of the three sinuses of Valsalva, set equidistant: NIGERIEN 9 degrees; cranial 7 degrees MITRAL: Mitral [...] patients who have questions please contactthe health associate director career services that requested your imaging first. Electronically signed by: Cullen Narayanan MD, [facility]([phone]), at 05/11/2023 4:37 PM Antelmo Sharma MD IMG CT ORDERABLES * (ABNORMAL) Lactate, whole blood, send to lab ([facility] (05/11/2023 9:29 AM EDT) Pathologist [facility] Lactate WB 3.1(H) 0.5 - 2.2 mmol/L [facility] Blood 05/11/2023 9:29 AM EDT 05/11/2023 9:38 AM EDT Narrative Resulting Agency Comment Spec In Lab Juan Luis Gonzalez MD CHEMISTRY ORDERABLES [facility] [place] [address] * (ABNORMAL) Differential, Automated (05/11/2023 4:42 AM EDT) Neutrophil % 78.1 % [facility] Neutrophil Absolute 5.46 1.70 - 6.10 x10(3)/mc L [facility] Lymph % 10.6 % [facility] Lymphocytes Abs 0.7(L) 0.9 - 3.2 x10(3)/mc L [facility] Monocyte % 9.6 % [facility] Monocyte Abs 0.7 0.3 - 0.9 x10(3)/mc L [facility] Eos % 0.0 % [facility] Eosinophils Abs 0.0 0.0 - 0.4 x10(3)/mc L [facility] Basophil % 0.4 % [facility] Baso Absolute 0.0 0.0 - 0.1 x10(3)/ L [facility] Immature Gran [...] City/State/[facility] Co de Phone Number [facility] [place] [address] * (ABNORMAL) Hemogram (05/11/2023 4:42 AM EDT) White Blood Cell 7.0 4.0 - 9.5 x10(3)/[facility] LABORATORY Red Blood Cell 3.44(L) 4.00 - 5.21 x10(6)/[facility]ORY Hemoglobin 11.1(L) 11.7 - [...] HOSPITAL LABORATORY Platelet 165 145 - 357 x10(3)/[facility] LAB[facility]ORY RDW Standard Deviation 43.1 37.0 - 46.0 fL [facility] RDW coefficient of variation 12.7 11.5 - 14.1 % [facility] Mean Platelet Volume 10.1 7.6 - 12.9 fL [facility] NRBC% auto 0.0 % [facility] NRBC Absolute 0.000 0.000 - 0.000 x10(3)/mc L [facility] Blood 05/11/2023 4:42 AM EDT 05/11/2023 4:49 AM EDT Narrative Resulting Agency Comment Spec In Lab Klaudia Reid MD HEMATOLOGY OR DERABLES Performing Organization Address [facility] Co de Phone Number [facility] [place] [address] * Heparin (unfractionated) Level (05/11/2023 4:42 AM EDT) UF Heparin 0.46 IU/mL [facility] Comment: Heparin (anti-Xa) levels should [...] ORDERAB LES Performing Organization Address [facility] Co de Phone Number [facility] [place] [address] * (ABNORMAL) Comprehensive metabolic panel (non-fasting) (05/11/2023 4:42 AM EDT) Glucose 143 65 - 199 mg/dL [facility] Comment:Diabetes: >=200 mg/d L plus symptoms Blood Urea Nitrogen 42(H) 8 - 18 mg/dL [facility] Creatinine 1.24(H) 0.70 - 1.20 mg/dL [facility] Sodium 134(L) 135 - [...] CHEMISTRY ORDERABL ES [facility] [place] [address] * EKG 12 Lead (05/10/2023 1:16 PM EDT) Ventricular rate 118 BPM MUSE SYSTEM Atrial Rate 118 BPM MUSE SYSTEM P-R Interval 152 ms MUSE SYSTEM QRS Duration 104 ms MUSE SYSTEM Q-T Interval 316 ms MUSE SYSTEM QTC Calculated (Bezet) 442 ms MUSE SYSTEM Calculated P [place] 29 degrees MUSE SYSTEM Calculated R [place] 18 degrees MUSE SYSTEM Calculated T [place] -173 degrees MUSE SYSTEM INTERPRETATION Sinus tachycardia [...] Anterior leads Confirmed by MD Mono, Eleni ([id number]) on 05/10/2023 8:47:46 PM MUSE SYSTEM 05/10/2023 1:16 PM EDT 05/10/2023 8:47 PM EDT Juan Luis Gonzalez MD ECG ORDERABLES Performing Organization Address City/[facility]/ZIP Co de Phone Number MUSE SYSTEM * Lactate, whole blood, send to lab ([facility] (05/10/2023 11:52 AM EDT) Pathologist [facility] Lactate WB 1.8 0.5 - 2.2 mmol/L [facility] Blood 05/10/2023 11:5 2 AM EDT 05/10/2023 12:13 PM EDT Narrative Resulting Agency Comment Spec In Lab Juan Luis Gonzalez MD CHEMISTRY ORDERABLES [facility] [place] [address] * XR Chest One View (05/10/2023 11:16 [...] who have questions please contact the health associate director career services that requested your imaging first. ? Electronically signed by: ALIX RUVALCABA MD, [facility] ([phone]), at 05/10/2023 1:25 PM Narrative 05/10/2023 1:25 [...] patients who have questions please contactthe health associate director career services that requested your imaging first. Electronically signed by: ALIX RUVALCABA MD, [facility]([phone]), at 05/10/2023 1:25 PM Juan Luis Gonzalez MD IMG DX ORDERABLES * EKG 12 Lead (05/10/2023 7:59 AM EDT) Ventricular rate 115 BPM MUSE SYSTEM Atrial Rate 115 BPM MUSE SYSTEM P-R Interval 142 ms MUSE SYSTEM QRS Duration 102 ms MUSE SYSTEM Q-T Interval 322 ms MUSE SYSTEM QTC Calculated (Bezet) 445 ms MUSE SYSTEM Calculated P [place] 36 degrees MUSE SYSTEM Calculated R [place] 28 degrees MUSE SYSTEM Calculated T [place] -119 degrees MUSE SYSTEM INTERPRETATION Sinus tachycardia with frequent Premature ventricular complexes and Fusion complexes ST & T wave abnormality, consider lateral ischemia Abnormal ECG When compared with ECG of 08-MAY-2023 15:51, No significant change was found I personally reviewed the tracing and edited the fellows interpretation Confirmed by fellow MD Anitha, Carissa ([id number]) on 05/11/2023 6:19:54 AM Confirmed by MD Tram, Chel ([id number]) on 05/11/2023 3:18:56 PM MUSE SYSTEM 05/10/2023 7:59 AM EDT 05/11/2023 3:18 PM EDT Radha Hollins MD ECG ORDERABLES MUSE SYSTEM * (ABNORMAL) Differential, Automated (05/10/2023 2:28 AM EDT) Neutrophil % 77.1 % [facility] Neutrophil Absolute 4.01 1.70 - 6.10 x10(3)/mc L [facility] Lymph % 14.0 % [facility] Lymphocytes Abs 0.7(L) 0.9 - 3.2 x10(3)/mc L [facility] Monocyte % 7.7 % [facility] Monocyte Abs 0.4 0.3 - 0.9 x10(3)/mc L [facility] Eos % 0.4 % [facility] Eosinophils Abs 0.0 0.0 - 0.4 x10(3)/ L [facility] Basophil % 0.4 % [facility] Baso Absolute 0.0 0.0 - 0.1 x10(3)/ L [facility] Immature Gran % 0.40 % [facility] Comment: Immature granulocytes(IG's)percentage and absolute count will include metamyelocytes, myelocytes, and promyelocytes. Blood smears from CBCs yielding IG's will be scanned manually for concordance. If this scan disagrees with the automated IG or if promyelocytes are noted, a manual differential will be performed. Immature Gran Absolute 0.02 0.00 - 0.04 x10(3)/[facility] LAB[facility] Blood 05/10/2023 2:28 AM EDT 05/10/2023 2:57 AM EDT Narrative Resulting Agency Comment Spec In Lab Klaudia Reid MD HEMATOLOGY OR DERABLES [facility] [place] [address] * (ABNORMAL) Hemogram (05/10/2023 2:28 AM EDT) White Blood Cell 5.2 4.0 - 9.5 x10(3)/ L [facility] Red Blood Cell 3.11(L) 4.00 - 5.21 x10(6)/mc L [facility] Hemoglobin 10.2(L) 11.7 - 15.5 g/dL [facility] Hematocrit 30.2(L) 35.7 - 45.8 % [facility] Mean Cell Volume 97.1(H) 82.6 - 94.4 fL [facility] Mean Cell Hemoglobin 32.8(H) 27.1 - 32.0 pg [facility] Mean Cell Hemoglobin Concentration 33.8 31.7 - 35.0 g/dL [facility] Platelet 151 145 - 357 x10(3)/ L [facility] RDW Standard Deviation 44.9 37.0 - 46.0 fL [facility] RDW coefficient of variation 12.8 11.5 - 14.1 % [facility] Mean Platelet Volume 9.8 7.6 - 12.9 fL [facility] NRBC% auto 0.0 % [facility] NRBC Absolute 0.000 0.000 - 0.000 x10(3)/mc L [facility] Blood 05/10/2023 2:28 AM EDT 05/10/2023 2:57 AM EDT Narrative Resulting Agency Comment Spec In Lab Klaudia Reid MD HEMATOLOGY OR DERABLES Performing Organization Address City/State/[facility] Co de Phone Number [facility] [place] [address] * (ABNORMAL) Comprehensive metabolic panel (non-fasting) (05/10/2023 2:28 AM EDT) Glucose 100 65 - 199 mg/dL [facility] [...] Carbon Dioxide 20(L) 22 - 31 mmol/L [facility] Anion Gap 12 5 - 15 mmol/L [facility] Calcium 9.3 8.5 - 10.5 mg/dL [facility] Protein, Total 6.4 6.1 - 8.0 g/dL [facility] Albumin 3.7 3.2 - 5.2 g/dL [facility] Aspartate Aminotransferase 24 0 - 30 unit/L [facility] Alanine Aminotransferase 14 0 - 30 unit/L [facility] Alkaline Phosphatase 70 35 - 105 unit/L [facility] Bilirubin, Total 0.5 0.2 - 1.3 mg/dL [facility] Est Glomerular Filtration Rate 70 >=60 mL/min/1. 73 m?? [facility] Comment: This patient's estimated [...] Lab Radha Hollins MD CHEMISTRY ORDERABL ES [facility] [place] [address] * Heparin (unfractionated) Level (05/10/2023 2:28 AM EDT) UF Heparin 0.37 IU/mL [facility] Comment: Heparin (anti-Xa) [...] Lab Radha Hollins MD [place] [address] * (ABNORMAL) Differential, Automated (05/09/2023 4:00 AM EDT) Neutrophil % 81.7 % [facility] Neutrophil Absolute 5.26 1.70 - 6.10 x10(3)/mc L [facility] Lymph % 10.7 % [facility] Lymphocytes Abs 0.7(L) 0.9 - 3.2 x10(3)/mc L [facility] Monocyte % 6.5 % [facility] Monocyte Abs 0.4 0.3 - 0.9 x10(3)/mc L [facility] Eos % 0.5 % [facility] Eosinophils Abs 0.0 0.0 - 0.4 x10(3)/mc L [facility] Basophil % 0.3 % [facility] Baso Absolute 0.0 0.0 - [...] [facility]/ZIP Co de Phone Number [facility] [place] [address] * (ABNORMAL) Hemogram (05/09/2023 4:00 AM EDT) [...] GENERAL HOSPITAL [facility] NRBC% auto 0.0 % [facility] NRBC Absolute 0.000 0.000 - 0.000 x10(3)/ L [facility] Blood 05/09/2023 4:00 AM EDT 05/09/2023 4:19 AM EDT Narrative Resulting Agency Comment Spec In Lab Klaudia Reid MD HEMATOLOGY OR DERABLES Performing Organization Address City/State/[facility] Co de Phone Number [facility] [place] [address] * Heparin (unfractionated) Level (05/09/2023 4:00 AM EDT) UF Heparin 0.47 IU/mL [facility] Comment: Heparin (anti-Xa) levels should [...] HEMATOLOGY ORDERAB LES [facility] [place] [address] * (ABNORMAL) Comprehensive metabolic panel (non-fasting) (05/09/2023 [...] Aspartate Aminotransferase 32(H) 0 - 30 unit/L [facility] Alanine Aminotransferase 18 0 - 30 unit/L [facility] Alkaline Phosphatase 78 35 [...] ORDERABL ES Performing Organization Address [facility] Co de Phone Number [facility] [place] [address] * (ABNORMAL) pro-Brain Natriuretic Peptide (05/08/2023 4:00 PM EDT) NT-proBNP 25,503(H) <=124 pg/mL [facility] Blood Venous Draw / Unknown 05/08/2023 4:00 PM EDT 05/08/2023 4:25 PM EDT Narrative Resulting Agency Comment Spec In Lab Juan Luis Gonzalez MD CHEMISTRY ORDERABLES Performing Organization Address [facility] Co de Phone Number [facility] [place] [address] * Magnesium (05/08/2023 4:00 PM EDT) Magnesium 0.82 0.69 - 1.07 mmol/L [facility] Blood 05/08/2023 4:00 PM EDT 05/08/2023 4:06 PM EDT Narrative Resulting Agency Comment Spec In Lab Enrique Chua MD CHEMISTRY ORDERABLES Performing Organization Address [facility] Co de Phone Number [facility] [place] [address] * Potassium (05/08/2023 4:00 PM EDT) Potassium 3.9 3.5 - 5.0 mmol/L [facility] Comment: Please note: ??Patients [...] ORDERABL ES Performing Organization Address [facility] Co de Phone Number [facility] [place] [address] * Heparin (unfractionated) Level (05/08/2023 4:00 PM EDT) UF Heparin 0.43 IU/mL [facility] Comment: Heparin (anti-Xa) levels should [...] ORDERAB LES Performing Organization Address [facility]/ZIP Co de Phone Number [facility] [place] [address] * EKG 12 Lead (05/08/2023 3:51 PM EDT) Ventricular rate 98 BPM MUSE SYSTEM Atrial Rate 98 BPM MUSE SYSTEM P-R Interval 150 ms MUSE SYSTEM QRS Duration 102 ms MUSE SYSTEM Q-T Interval 358 ms MUSE SYSTEM QTC Calculated (Bezet) 457 ms MUSE SYSTEM Calculated P [place] 38 degrees MUSE SYSTEM Calculated R [place] 48 degrees MUSE SYSTEM Calculated T [place] -112 degrees MUSE SYSTEM INTERPRETATION Sinus rhythm with frequent and consecutive Premature ventricular and fusion complexes Septal infarct , age undetermined ST & T wave abnormality, consider anterolateral ischemia Abnormal ECG When compared with ECG of 09-NOV-2022 11:17, T wave inversion now evident in Anterolateral leads Confirmed by MD Harshil, Enrique Bell ([id number]) on 05/10/2023 8:11:46 AM MUSE SYSTEM 05/08/2023 3:51 PM EDT 05/10/2023 8:11 AM EDT Radha Hollins MD ECG ORDERABLES MUSE SYSTEM * (ABNORMAL) Differential, Automated (05/08/2023 11:38 AM EDT) Pathologist [facility] Neutrophil % 71.3 % [facility] Neutrophil Absolute 2.91 1.70 - 6.10 x10(3)/mc L [facility] Lymph % 19.1 % [facility] Lymphocytes Abs 0.8(L) 0.9 - 3.2 x10(3)/mc L [facility] Monocyte % 9.0 % [facility] Monocyte Abs 0.4 0.3 - 0.9 x10(3)/mc L [facility] Eos % 0.2 % [facility] Eosinophils Abs 0.0 0.0 - 0.4 x10(3)/mc L [facility] Basophil % 0.2 % [facility] Baso Absolute 0.0 [...] HEMATOLOGY ORDERA BLES [facility] [place] [address] * (ABNORMAL) Hemogram (05/08/2023 11:38 AM EDT) White Blood Cell 4.1 4.0 - 9.5 x10(3)/mc L [facility] Red Blood Cell 3.05(L) 4.00 - 5.21 x10(6)/[facility] LABORATORY Hemoglobin 10.2(L) 11.7 - [...] Platelet Volume 9.4 7.6 - 12.9 fL [facility] NRBC% auto 0.0 % [facility] NRBC Absolute 0.000 0.000 - 0.000 x10(3)/mc L [facility] Blood 05/08/2023 11:3 8 AM EDT 05/08/2023 11:44 AM EDT Narrative Resulting Agency Comment Spec In Lab Lincoln Sal MD HEMATOLOGY ORDERA BLES Performing Organization Address City/[facility] Co de Phone Number [facility] [place] [address] * TSH (05/08/2023 11:38 AM EDT) Thyroid Stimulating Hormone 1.27 0.27 - 4.20 mcIU/mL [facility] Comment: Reference Interval (mcIU/mL): Females: ??First Trimester: 0.23-3.88 ??Second Trimester: 0.22-3.90 ??Third Trimester: 0.44-4.66 Blood 05/08/2023 11:3 8 AM EDT 05/08/2023 11:44 AM EDT Narrative Resulting Agency Comment Spec In Lab Enrique Chua MD CHEMISTRY ORDERABLES Performing Organization Address [facility] Co de Phone Number [facility] [place] [address] * (ABNORMAL) Phosphorus (05/08/2023 11:38 AM EDT) Phosphorus 4.7(H) 2.5 - 4.5 mg/dL [facility] Blood 05/08/2023 11:3 8 AM EDT 05/08/2023 11:44 AM EDT Narrative Resulting Agency Comment Spec In Lab Enrique Chua MD CHEMISTRY ORDERABLES Performing Organization Address City/[facility] Co de Phone Number [facility] [place] [address] * Magnesium (05/08/2023 11:38 AM EDT) Magnesium 0.76 0.69 - 1.07 mmol/L [facility] Blood 05/08/2023 11:3 8 AM EDT 05/08/2023 11:44 AM EDT Narrative Resulting Agency Comment Spec In Lab Enrique Chua MD CHEMISTRY ORDERABLES Performing Organization Address City/[facility]/ZIP Co de Phone Number [facility] [place] [address] * (ABNORMAL) Basic Metabolic Panel (non-fasting) (05/08/2023 [...] In Lab Enrique Chua MD CHEMISTRY ORDERABLES [facility] [place] [address] * ECHO COMPLETE (05/08/2023 11:02 AM EDT) EF 25 HEARTLAB SYSTEM Anatomical Region Laterality Modality Cardiac Other 05/08/2023 10:0 3 AM EDT Narrative 05/08/2023 11:51 AM EDT ? Echocardiogram Report Name: PURNIMA THACKER ?Study Date: 05/08/2023 10:03 AMBP: 92/64 mmHg ? Patient Location: CVCC^CV29^A : 1955 ? Height: 155 cm ? Account: [id number] Age: 67 yrs ? Weight: 78 kg Gender: Female ?BSA: 1.8 m2 Ordering Physician: ENRIQUE CHUA Referring Physician: MARIO ALBERTO CHIN Performed By: CHUCKIE Canchola Reason For Study: SAVR Stenosis Exam Location: [facility]. Interpretation Summary -Left ventricle [...] worsening stenosis. Mitral regurgitation is similar. Procedure Complete-26236. Satisfactory quality. There is normal sinus rhythm. [...] INSTITUTE^CV[facility]A : 1955 Height: 155 cm Account: [id number] Age: 67 yrs Weight: 78 kg Gender: Female BSA: 1.8 m2 Ordering Physician: ENRIQUE CHUA Referring Physician: MARIO ALBERTO CHIN Performed By: CHUCKIE Canchola Reason For Study: SAVR Stenosis Exam Location: [facility]. Interpretation Summary -Left ventricle [...] suggestsworsening stenosis. Mitral regurgitation is similar. Procedure Complete-[id number]. Satisfactory quality. There is normal sinus rhythm. [...] 9:45 AM EDT) UF Heparin 0.54 IU/mL [facility] Comment: Heparin (anti-Xa) [...] Lab Enrique Chua MD HEMATOLOGY ORDERABLE S [facility] [place] [address] documented in this encounter Visit Diagnoses Diagnosis S/P TAVR (transcatheter aortic valve replacement)- Primary Aortic valve stenosis, etiology of cardiac valve disease unspecified Heart failure with reduced ejection fraction due to heart valve disease Mild coronary artery disease by [facility] 11/09/2022 Mixed connective tissue disease Other [...] fraction Mild coronary artery disease by [facility] 11/09/2022 Stenosis of prosthetic aortic valve [...] dose on Wed05/12/23 at 1030, Until Discontinued, [place] teeth, Routine Given 05/12/2023 10:04 AM EDT [...] 20 mEq, Oral, ONCE, 1 dose, On e 05/18/23 at 0730, 20 mEq tablet may [...] Intravenous, 2 TIMES DAILY, First dose on Wed05/08/23 at 1230, Until Discontinued, Routine Given 05/11/2023 [...] at 0831, Side port TKO rate, per [facility] flush protocol Rate/Dose Verify 05/13/2023 6:00 AM EDT 10 mL/hr 10 mL/hr Rate/Dose Verify 05/13/2023 4:00 AM EDT 10 mL/hr 10 mL/h r Rate/Dose Verify 05/13/2023 2:00 AM EDT 10 mL/hr 10 mL/h r sodium chloride 0.9% infusion 10-30 mL/hr, Intravenous, DAILY PRN, Starting on Wed05/12/23 at 0944, Until Wed05/17/23 at 0831, Side port TKO rate, per [facility] flush protocol. Rate/Dose Verify 05/17/2023 8:00 AM [...] Kia Gallego, VALDO) 0827 (Given - Provider: Kai Gallego, VALDO) lidocaine (Lidoderm) 5% patch 1 [...] 1758 (New Bag - Provider: Gabino Calhoun, VALDO)1958 (Stopped - Provider: Favian Mkceon RN) magnesium sulfate 2 g in sterile [...] RN) 08 (See Alternative - Provider: Kia Gallego, [...] VALDO) 08 (Given - Provider: Kia Gallego, RN) [...] Routine documented in this encounter Care Teams Clinical Data Programmer Relationship Specialty Start Date End Date Magdalena Acosta MD [address] [place] [address] PCP - General Family Medicine 02/05/23 documented as of this encounter
--- OUTSIDE RECORDS SUMMARY | 2024-06-06 14:01 | XMS_ITS | Encounter Summary ---
Author Organization [facility] Address [facility] [place] [address] Care Team Providers Care Tourist Escort Name Role Phone Magdalena Acosta MD Primary Care Provider [phone] Encounter Details Date Type Department Care Team [...] Hematology [place] [address] Markel Borjas MD [facility] [address] HEMATOLOG[place] [address] 11/02/2024 12:00 PM EDT Appointment [place] [address] 11/02/2024 1:00 PM EDT Office [place] [address] Magdalena Peralta MD [facility] [place] [address] 03/01/2025 4:15 PM EDT Office Visit Dermatology at [place] [address] [facility] [place] [address] Marek Bonilla MD [address] Katherine [place] [address] documented as of this encounter Visit Diagnoses Not on filedocumented in this encounter Care Teams Tourist Escort Relationship Specialty Start Date End Date Magdalena Acosta MD [address] [place] [address] PCP - General Family Medicine 02/05/23 documented as of this encounter
--- OUTSIDE RECORDS SUMMARY | 2024-06-06 14:01 | XMS_ITS | Encounter Summary ---
Author Organization [place] [id number] Care Team Providers Care Card Assembler Name Role Phone Magdalena Acosta MD Primary Care Provider [phone] Reason for Visit * Auth/Cert (Routine) Specialty Diagnoses / Procedures Referred By Contac t Referred To Contact Diagnoses Symptomatic severe aortic stenosis with low ejection fraction NSTEMI, CHF Haris Chua MD [facility] [place] [address] [facility] Referral ID Status Reason Start Date Expiration Date Visits Re quested Visits Authorized [id number] 1 1 Encounter Details Date Type Department Care Team (Late st Contact Info) Description 05/12/2023 7:35 AM EDT Anesthesia [place] [address] Lynda Mcgowan MD [facility] DR ANESTHESIOLOGY [place] [address] Alie Park MD [facility] ANESTHESIOLOGY [place] [address] Anesthesia Record Procedure Summary Procedure Name Responsible [...] cephalic vein (lateral side of arm), left; vqnu-qnr-ktfugs catheter system; Anatomical Landmarks; US Not Used; [...] Procedure Summary Date: 05/12/23 Room / Location: PHOTOGRAPH EDITOR / [facility] CATH LABS Anesthesia Start: 734 [...] All Anesthesia Providers: Anesthesiologist: Lynda Mcgowan MD Suture Gauger: Nico Graham MD Vitals Value Taken Time [...] 05/08/2023 ??? Mild coronary artery disease by [facility] 11/09/2022 05/08/2023 ??? Heart [...] IMG S&I N/A 11/09/2022 CORONARY ANGIOGRAPHY; W [facility],POSSIBLE PCI (WRVU 5.6) performed by Nitesh Escobedo MD at [facility] CATH LABS ??? PRO AORTOPLAS FOR SUPRAVALV STEN N/A 09/21/2016 @AORTOPLASTY FOR SUPRAVALVULAR STENOSIS (WRVU 29.33) performed by Alirio Esparza MD at [facility] MAIN OR ??? PRO REPLACEMENT PROSTHETIC AORTIC VALVE OPEN W CARDIOPULMONARY BYPASS HOMOGRF/STENT N/A 09/21/2016 @REPLACE AORTIC VALVE, OPEN, W\CPB, W\PROSTHETIC VALVE (WRVU 41.32) performed by Alirio Esparza MD at [facility] MAIN OR Social History Tobacco [...] 3 general, with a(n) intravenous induction Add-on cehvb-yf-bvdum TAVR. In cardiogenic shock. Has arterial line, [...] Hematology [place] [address] Markel Borjas MD [facility] DR HEMATOLOGY [place] [address] 11/02/2024 12:00 PM EDT Appointment [place] [address] 11/02/2024 1:00 PM EDT Office [place] [address] Magdalena Peralta MD [facility] DR RHEUMATOLOGY [place] [address] 03/01/2025 4:15 PM EDT Office Visit Dermatology at [address] [place] [address] Marek Bonilla MD [address], [place] [address] documented as of this encounter Visit Diagnoses [...] mL/hr documented in this encounter Care Teams Card Assembler Relationship Specialty Start Date End Date Magdalena Acosta MD [address] [place] [address] PCP - General Family Medicine 02/05/23 documented as of this encounter
[2024-06-06 14:02] VITALS: BP 100/50; PULSE 77
--- OUTSIDE RECORDS SUMMARY | 2024-06-06 14:02 | XMS_ITS | Encounter Summary ---
Author Organization [facility] [place] [address] Care Team Providers Care Technology Recruiter Name Role Phone Magdalena Acosta MD Primary Care Provider [phone] Encounter Details Date Type Department Care Team (Late st Contact Info) Description 05/08/2023 [place] [phone] Luis Felipe Ott MD [facility] [place] [address] Social History Tobacco Use Types Packs/Day Years [...] 0426 Referring Provider: Nitesh Baltazar Patient Location: [facility] Presenting Symptoms per OSH: 67 [...] diuresis with IV furosemide 20 x 1 (wqgoparwid07/47 at rheumatology appointment), SpO2 85% on RA -> 95% on 2L NC, HR 120s. Examination significant for decreased breath sounds at the bases. Pertinent Diagnostic Findings: CBC - Hgb 10.5 CMP - Cr 1.1 BNP 94345 HsTrop 1358 Lactate 1.6 D-dimer 1183, CTPE pending CXR demonstrated pulmonary vascular congestion US showed bilateral b lines Bedside echo reportedly similar to prior TTE for LV function OSH Interventions: ASA 324 Heparin gtt Plan: Transfer to [facility] Above recommendations/plans are based on my conversation with the referring provider. I have not personally interviewed or examined this patient. Luis Felipe Ott MD [facility] Received a call from provider emergently at 715am. Mentating well and BP 87/53. HR 108 and diursingwell. They were about to start phenylephrine which I stressed was not a good option given concern for severe and increasing afterload. She is warm on exam, mentating and urinating and we do not need to amrit a BP if those things remain stable. Nico Segura, PGY-6 [place] [id number] documented in this encounter Plan of Treatment Upcoming Encounters Date Type Department Care Team (Late st Contact Info) Description 06/23/2024 2:00 PM EST Office Visit Hematology [place] [address] Markel Borjas MD [facility] [place] [address] 11/02/2024 12:00 PM EDT Appointment [place] [address] 11/02/2024 1:00 PM EDT Office [place] [address] Magdalena Peralta MD [facility] [place] [address] 03/01/2025 4:15 PM EDT Office Visit Dermatology at [place] [address] [facility] [place] [address] Marek Bonilla MD [address] [facility] [place] [address] documented as of this encounter Visit Diagnoses Not on filedocumented in this encounter Care Teams Technology Recruiter Relationship Specialty Start Date End Date Magdalena Acosta MD [address] [place] [address] PCP - General Family Medicine 02/05/23 documented as of this encounter
--- OUTSIDE RECORDS SUMMARY | 2024-06-06 14:02 | XMS_ITS | Encounter Summary ---
[place] [address] Care Team Providers Care Escort Blind Name Role Phone Magdalena Acosta MD Primary Care Provider [phone] Reason for Visit * Reason Comments Annual Exam Encounter Details Date Type Department Care Team (Late st Contact Info) Description 02/05/2023 2:30 PM EDT Office Visit Dermatology at [address] [phone] Marek Bonilla MD [address] [facility] A DERMATOLOGY [place], [place] [phone] Rosacea; Ocular rosacea; Nevus Social History Tobacco [...] cutaneous and ocular 2. Previously told by recruiting manager that she had corneal tears from [...] EST Office Visit Hematology [place] [address] Markel Borjas MD [facility] DR HEMATOLOGY [place] [address] 11/02/2024 12:00 PM EDT Appointment [place] [address] 11/02/2024 1:00 PM EDT Office [place] [address] Magdalena Peralta MD [facility] [place] [address] 03/01/2025 4:15 PM EDT Office Visit Dermatology at [address] [phone] Marek Bonilla MD [address], [place] A DERMATOLOGY [place], [place] [address] documented as of this encounter Visit Diagnoses Diagnosis Rosacea Ocular rosacea Rosacea Nevus Benign neoplasm of skin, site unspecified documented in this encounter Care Teams Escort Blind Relationship Specialty Start Date End Date Magdalena Acosta MD [address] [place] [address] PCP - General Family Medicine 02/05/23 documented as of this encounter
--- OUTSIDE RECORDS SUMMARY | 2024-06-06 14:02 | XMS_ITS | Encounter Summary ---
Author Organization [facility] [place] [address] Care Team Providers Care Career Center Advisor Name Role Phone Magdalena Acosta MD Primary Care Provider [phone] Encounter Details Date Type Department Care Team (Late st Contact Info) Description 03/29/2023 Notes Only Cardiology at [address] [phone] Vahid Plasencia, RN Social History Tobacco Use [...] EST Office Visit Hematology and Oncology at [place] [phone] Markel Borjas MD [facility] DR HEMATOLOGY [place] [address] 11/02/2024 12:00 PM EDT [place] [address] 11/02/2024 1:00 PM EDT Office Visit Rheumatology at [place] [address] Magdalena Peralta MD [facility] [place] [address] 03/01/2025 4:15 PM EDT Office Visit Dermatology at [address] [address] Marek Bonilla MD [address] [facility], [place] [address] documented as of this encounter Visit Diagnoses Not on filedocumented in this encounter Care Teams Career Center Advisor Relationship Specialty Start Date End Date Magdalena Acosta MD [address] [place] [address] PCP - General Family Medicine 02/05/23 documented as of this encounter
--- OUTSIDE RECORDS SUMMARY | 2024-06-06 14:02 | XMS_ITS | Encounter Summary ---
Author Organization [facility] Erika [facility] [place] [address] Care Team Providers Care Center Maker Hand Name Role Phone Magdalena Acosta MD Primary Care Provider [phone] Encounter Details Date Type Department Care Team [...] Visit Hematology and Oncology at [place] [phone] Markel Borjas MD [facility] DR HEMATOLOGY [place] [address] 11/02/2024 12:00 PM EDT Appoint[place] [address] 11/02/2024 1:00 PM EDT Office [place] [address] Magdalena Peralta MD [facility] [place] [address] 03/01/2025 4:15 PM EDT Office Visit Dermatology at [place] [address] [place] [address] Marek Bonilla MD [address], [address] [place] [address] documented as of this encounter Visit Diagnoses Not on filedocumented in this encounter Care Teams Center Maker Hand Relationship Specialty Start Date End Date Magdalena Acosta MD [address] [place] [address] PCP - General Family Medicine 02/05/23 documented as of this encounter
--- OUTSIDE RECORDS SUMMARY | 2024-06-06 14:02 | XMS_ITS | Encounter Summary ---
Author Organization [facility] [place] [address] Care Team Providers Care Vault Manager Name Role Phone Magdalena Acosta MD Primary Care Provider [phone] Reason for Referral * Consultation (Routine) - Closed Specialty Diagnoses / Procedures Referred By Contac t Referred To Contact Rheumatology Diagnoses Weakness Kyra Haas MD [facility] [address] [place] [address] [facility] Rheumatology [address] [place] [phone] Referral ID Status Reason Start Date Expiration Date V isits Requested Visits Authorized [id number] Closed Consult, Test & Treat PCP Updated and/or Approved 02/25/2023 02/25/2024 6 6 Encounter Details Date Type Department Care Team (Late st Contact Info) Description 02/25/2023 Transcribe Orders eDH Incoming Referrals [phone] Magdalena Acosta MD [address] [place] [address] Weakness Social History Tobacco Use [...] EST Office Visit Hematology and Oncology at [place] [phone] Markel Borjas MD [facility] [address] [place] [address] 11/02/2024 12:00 PM EDT [place] [address] 11/02/2024 1:00 PM EDT [place] [address] Magdalena Peralta MD [facility] [place] [address] 03/01/2025 4:15 PM EDT Office Visit Dermatology at [place] [address] [place] [address] Mraek Bonilla MD [address] [facility], [place] [address] Scheduled Referrals Name Type Priority Associated Diagnoses Order Schedule Referral to Rheumatology Outpatient Referral Routine Weakness Ordered: 02/25/2023 documented as of this encounter Visit Diagnoses Diagnosis Weakness Other malaise and fatigue documented in this encounter Care Teams Vault Manager Relationship Specialty Start Date End Date Magdalena Acosta MD [address] [place] [address] PCP - General Family Medicine 02/05/23 documented as of this encounter
--- OUTSIDE RECORDS SUMMARY | 2024-06-06 14:02 | XMS_ITS | Encounter Summary ---
[place] [address] Care Team Providers Care Practice Director Name Role Phone Magdalena Acosta MD Primary Care Provider Reason for Visit * Reason Comments Suture / Staple Removal Encounter Details Date Type Department Care Team (Late st Contact Info) Description 02/16/2023 10:00 AM EDT Office Visit Dermatology at [place] [address] [facility] [place] [address] Marek Bonilla MD [address] [facility], [address] A DERMATOLOGY [place], [place] [address] Visit for suture removal Social History Tobacco [...] Visit [place]ematology [place] [address] Markel Borjas MD [facility] [address] [place] [address] 11/02/2024 12:00 PM EDT [place] [address] 11/02/2024 1:00 PM EDT Office [place] [address] Magdalena Peralta MD [facility] [place] [address] 03/01/2025 4:15 PM EDT Office Visit Dermatology at [address] [place] [address] Marek Bonilla MD [address] [facility] [address], [place] [address] documented as of this encounter Visit Diagnoses Diagnosis Visit for suture removal Encounter for removal of sutures documented in this encounter Care Teams Practice Director Relationship Specialty Start Date End Date Magdalnea Acosta MD [address] [place] [address] PCP - General Family Medicine 02/05/23 documented as of this encounter
--- OUTSIDE RECORDS SUMMARY | 2024-06-06 14:02 | XMS_ITS | Encounter Summary ---
Author Organization [facility] Address [facility] [place] [address] Care Team Providers Care White Metal Caster Name Role Phone Deborah Quiroga APRN Primary Care Provider [phone] Encounter Details Date Type Department Care Team (Latest Contact Info) Description 07/03/2022 1:36 PM EST - 07/03/2022 11:59 PM EST Hospital Encounter Hematology [place] [address] Discharge Disposition: Home Social History Tobacco Use [...] Office Visit Hematology [place] [address] Markel Borjas MD [facility] DR [place] [address] 11/02/2024 12:00 PM EDT Appointment [place] [address] 11/02/2024 1:00 PM EDT Office [place] [address] Magdalena Peralta MD [facility] [place] [address] 03/01/2025 4:15 PM EDT Office Visit Dermatology at [place] [address] [facility] [place] [address] Marek Bonilla MD [address], [place] [address] documented as of this encounter Procedures Procedure [...] MD CHEMISTRY ORDERABL ES Performing Organization Address City/[facility]/ZIP Co de Phone Number [facility] [place] [address] * Vitamin B12 (07/03/2022 1:59 PM EST) Vitamin B12 449 232 - 1,245 pg/mL [facility] Blood Venous Draw / Unknown 07/03/2022 1:59 PM EST 07/03/2022 2:13 PM EST Narrative Resulting Agency Comment Spec In Lab Markel Borjas MD CHEMISTRY ORDERABL ES [facility] [place] [address] documented in this encounter Visit Diagnoses Not on filedocumented in this encounter Care Teams White Metal Caster Relationship Specialty Start Date End Date Deborah Quiroga APRN PCP - General Family Medicine 03/24/16 02/04/23 documented as of this encounter
--- OUTSIDE RECORDS SUMMARY | 2024-06-06 14:02 | XMS_ITS | Encounter Summary ---
Author Organization [facility] [place] [address] Care Team Providers Care Display Trimmer Name Role Phone Magdalena Acosta MD Primary Care Provider [phone] Encounter Details Date Type Department Care Team [...] Office Visit Hematology and Oncology at [place] [phone] Markel Borjas MD [facility] DR HEMATOLOGY [place] [address] 11/02/2024 12:00 PM EDT Appointment [place] [address] 11/02/2024 1:00 PM EDT Office [place] [address] Magdalena Peralta MD [facility] [place] [address] 03/01/2025 4:15 PM EDT Office Visit Dermatology at [place] [address] [facility] [place] [address] Marek Bonilla MD [address] [place] [address] documented as of this encounter Visit Diagnoses Not on filedocumented in this encounter Care Teams Display Trimmer Relationship Specialty Start Date End Date Magdalena Acosta MD [address] [place] [address] PCP - General Family Medicine 02/05/23 documented as of this encounter
--- OUTSIDE RECORDS SUMMARY | 2024-06-06 14:02 | XMS_ITS | Encounter Summary ---
Author Organization [facility] Erika [facility] [place] [address] Care Team Providers Care Cancer Registry Coordinator Name Role Phone Magdalena Acosta MD Primary Care Provider [phone] Encounter Details Date Type Department Care Team [...] EST Office Visit Hematology and Oncology at [place] [phone] Markel Borjas MD [facility] DR [place] [address] 11/02/2024 12:00 PM EDT Appointment [place] [address] 11/02/2024 1:00 PM EDT Office [place] [address] Magdalena Peralta MD [facility] [place] [address] 03/01/2025 4:15 PM EDT Office Visit Dermatology at [place] [address] [facility] [place] [address] Marek Bonilla MD [address] [facility] [address], [place] [address] documented as of this encounter Visit Diagnoses Not on filedocumented in this encounter Care Teams Cancer Registry Coordinator Relationship Specialty Start Date End Date Magdalena Acosta MD [address] [place] [address] PCP - General Family Medicine 02/05/23 documented as of this encounter
--- OUTSIDE RECORDS SUMMARY | 2024-06-06 14:02 | XMS_ITS | Encounter Summary ---
[place] [address] Care Team Providers Care Credit Interviewer Name Role Phone Magdalena Acosta MD Primary Care Provider [phone] Reason for Visit * Reason Comments Skin Lesion Encounter Details Date Type Department Care Team (Late st Contact Info) Description 04/20/2023 10:00 AM EDT Office Visit Dermatology at [address] [address] Marek Bonilla MD [address] [facility] [place] [address] Seborrheic keratosis Social History Tobacco Use Types [...] cutaneous and ocular 3. Previously told by cloth spreader that she had corneal tears from her [...] Visit Hematology and Oncology at [place] [address] Markel Borjas MD [facility] DR HEMATOLOGY [place] [address] 11/02/2024 12:00 PM EDT Appointment Pulmonology at [place] [address] 11/02/2024 1:00 PM EDT Office Visit Rheumatology at [place] [address] Magdalena Peralta MD [facility] [place] [address] 03/01/2025 4:15 PM EDT Office Visit Dermatology at [address] [place] [address] Marek Bonilla MD [address] [facility] [place] [address] documented as of this encounter Visit Diagnoses Diagnosis Seborrheic keratosis Other seborrheic keratosis documented in this encounter Care Teams Credit Interviewer Relationship Specialty Start Date End Date Magdalena Acosta MD [address] [place] [address] PCP - General Family Medicine 02/05/23 documented as of this encounter
--- OUTSIDE RECORDS SUMMARY | 2024-06-06 14:02 | XMS_ITS | Encounter Summary ---
Author Organization [facility] [place] [address] Care Team Providers Care Certified Hand Therapist Name Role Phone Magdalena Acosta MD Primary Care Provider [phone] Encounter Details Date Type Department Care Team [...] Visit Hematology and Oncology at [place] [phone] Markel Borjas MD [facility] DR HEMATOLOGY [place] [address] 11/02/2024 12:00 PM EDT Appointment [place] [address] 11/02/2024 1:00 PM EDT Office [place] [address] Magdalena Peralta MD [facility] [place] [address] 03/01/2025 4:15 PM EDT Office Visit Dermatology at [place] [address] [facility] [place] [address] Marek Bonilla MD [address] [facility] [address] [place] [address] documented as of this encounter Visit Diagnoses Not on filedocumented in this encounter Care Teams Certified Hand Therapist Relationship Specialty Start Date End Date Magdalena Acosta MD [address] [place] [address] PCP - General Family Medicine 02/05/23 documented as of this encounter
--- OUTSIDE RECORDS SUMMARY | 2024-06-06 14:02 | XMS_ITS | Encounter Summary ---
Author Organization [facility] [place] [address] Care Team Providers Care Grounds/Maintenance Specialist Name Role Phone Deborah Quiroga APRN Primary Care Provider [phone] Reason for Referral * Consultation (Routine) - Closed Specialty Diagnoses / Procedures Referred By Crispin maxwell Referred To Contact Neurology Diagnoses Polyneuropathy Deborah Quiroga APRN [address] [facility] [address] [place] [address] [facility] Neurology [address] [place] [phone] Referral ID Status Reason Start Date Expiration Date V isits Requested Visits Authorized [id number] Closed Consult, Test & Treat 10/29/2022 10/29/2023 1 1 Encounter Details Date Type Department Care Team (Latest Contact Info) Description 10/29/2022 Transcribe Orders eDH Incoming Referrals [phone] Deborah Quiroga APRN [address] [facility] [address] [place] [address] Polyneuropathy (Primary Dx) Social History [...] EST Office Visit [place] [address] Markel Borjas MD [facility] [address] [place] [address] 11/02/2024 12:00 PM EDT [place] [address] 11/02/2024 1:00 PM EDT [place] [phone] Magdalena Peralta MD [facility] [place] [address] 03/01/2025 4:15 PM EDT Office Visit Dermatology at [place] [address] [facility] [place] [phone] Marek Bonilla MD [address] [facility] [place] [address] Scheduled Referrals Name Type Priority Associated Diagnoses Orde r Schedule Referral to Neurology Outpatient Referral Routine Polyneuropathy Ordered: 10/29/2022 documented as of this encounter Visit Diagnoses Diagnosis Polyneuropathy- Primary Unspecified hereditary and idiopathic peripheral neuropathy documented in this encounter Care Teams Grounds/Maintenance Specialist Relationship Specialty Start Date End Date Deborah Quiroga APRN PCP - General Family Medicine 03/24/16 02/04/23 documented as of this encounter
--- OUTSIDE RECORDS SUMMARY | 2024-06-06 14:02 | XMS_ITS | Encounter Summary ---
Author Organization Formerly [facility] Address [facility] [address] Care Team Providers Care Tread Tuber Machine Operator Name Role Phone Magdalena Acosta MD Primary Care Provider Encounter Details Date Type Department Care Team (Late st Contact Info) Description 03/29/2023 Orders Only Cardiology at [address] [address] Ranjan Delgado MD [facility] [place] [address] Severe aortic stenosis (Primary Dx) Social History [...] EST Office Visit Hematology [place] [address] Markel Borjas MD [facility] [address] HEMATOLOGY AND ONCOLOGY [place], [place] [phone] 11/02/2024 12:00 PM EDT Appointment [place] [address] 11/02/2024 1:00 PM EDT Office [place] [address] Magdalena Peralta MD [facility] [place] [address] 03/01/2025 4:15 PM EDT Office Visit Dermatology at [place] [address] [facility] [place] [phone] Marek Bonilla MD [address] [facility] [address] [place] [address] Scheduled Orders Name Type Priority Associated Diagnoses [...] disorders documented in this encounter Care Teams Tread Tuber Machine Operator Relationship Specialty Start Date End Date Magdalena Acosta MD [address] [place] [address] PCP - General Family Medicine 02/05/23 documented as of this encounter
--- OUTSIDE RECORDS SUMMARY | 2024-06-06 14:02 | XMS_ITS | Encounter Summary ---
Author Organization [facility] [place] [address] Care Team Providers Care Finance Controller Name Role Phone JunaidAshley hargrovezac Shields APRN Primary Care Provider [phone] Encounter Details Date Type Department Care Team (Late st Contact Info) Description 11/02/2022 Orders [place] [address] Emily Lyons PA [facility] CARDIOLOGY [place], [place] [phone] Aortic valve stenosis, etiology of cardiac valve [...] EST Office Visit Hematology [place] [address] Markel Borjas MD [facility] HEMATOLOGY AND ONCOLOGY [place], [place] [address] 11/02/2024 12:00 PM EDT Appointment [place] [address] 11/02/2024 1:00 PM EDT Office [place] [address] Magdalena Peralta MD [facility] [place] [address] 03/01/2025 4:15 PM EDT Office Visit Dermatology at [place] [address] [facility] [place] [phone] Marek Bonilla MD [address] [facility] [place] [address] documented as of this encounter Visit Diagnoses Diagnosis Aortic valve stenosis, etiology of cardiac valve disease unspecified documented in this encounter Care Teams Finance Controller Relationship Specialty Start Date End Date Deborah Quiroga APRN PCP - General Family Medicine 03/24/16 02/04/23 documented as of this encounter
--- OUTSIDE RECORDS SUMMARY | 2024-06-06 14:02 | XMS_ITS | Encounter Summary ---
Author Organization [facility] [place] [address] Care Team Providers Care Reaming Machine Operator For Plastic Name Role Phone Magdalena Acosta MD Primary Care Provider [phone] Encounter Details Date Type Department Care Team [...] EST Office Visit Hematology and Oncology at [place] [phone] Markel Borjas MD [facility] [place] [address] 11/02/2024 12:00 PM EDT [place] [address] 11/02/2024 1:00 PM EDT [place] [address] Magdalena Peralta MD [facility] [place] [address] 03/01/2025 4:15 PM EDT Office Visit Dermatology at [place] [address] [facility] [place] [phone] Marek Bonilla MD [address] [facility] [facility] [address] [address] [place] [address] documented as of this encounter Visit Diagnoses Not on filedocumented in this encounter Care Teams Reaming Machine Operator For Plastic Relationship Specialty Start Date End Date Magdalena Acosta MD [address] [place] [address] PCP - General Family Medicine 02/05/23 documented as of this encounter
--- OUTSIDE RECORDS SUMMARY | 2024-06-06 14:02 | XMS_ITS | Encounter Summary ---
Author Organization Formerly [facility] [place] [address] Care Team Providers Care Securities Dealer Name Role Phone Magdalena Acosta MD Primary Care Provider [phone] Encounter Details Date Type Department Care Team (Latest Contact Info) Description 03/18/2023 2:30 PM EDT Laboratory Appointment Lab [address] [address] Positive FRANCISCO (antinuclear antibody) Social [...] EST Office Visit H[place]ology [place] [address] Markel Borjas MD [facility] [address] [place] [address] 11/02/2024 12:00 PM EDT [place]oint[place] [address] 11/02/2024 1:00 PM EDT Office [place] [address] Magdalena Peralta MD [facility] [place] [address] 03/01/2025 4:15 PM EDT Office Visit Dermatology at [place] [address] [facility] [place] [phone] Marek Bonilla MD [address] [facility] [address] [place] [address] documented as of this encounter Procedures Procedure [...] 2:14 PM EDT) Neutrophil % 71.2 % [facility] Neutrophil Absolute 2.26 1.70 - 6.10 x10(3)/mc L [facility] Lymph % 18.2 % [facility] Lymphocytes Abs 0.6(L) 0.9 - 3.2 x10(3)/mc L [facility] Monocyte % 9.7 % [facility] Monocyte Abs 0.3 0.3 - 0.9 x10(3)/ L [facility] Eos % 0.3 % [facility] Eosinophils Abs 0.0 0.0 - 0.4 x10(3)/mc L [facility] Basophil % 0.6 % [facility] Baso Absolute 0.0 0.0 - 0.1 x10(3)/mc L [facility] Immature Gran % 0.00 % [facility] Comment: Immature granulocytes(IG's)percentage and absolute count will include metamyelocytes, myelocytes, and promyelocytes. Blood smears from CBCs yielding IG's will be scanned manually for concordance. If this scan disagrees with the automated IG or if promyelocytes are noted, a manual differential will be performed. Immature Gran Absolute 0.00 0.00 - 0.04 x10(3)/mc L [facility] Blood 03/18/2023 2:14 PM EDT 03/18/2023 2:24 PM EDT Narrative Resulting Agency Comment Spec In Lab Magdalena Peralta MD HEMATOLOGY ORDERABLE S [facility] [place] [address] * (ABNORMAL) Hemogram (03/18/2023 2:14 PM EDT) White Blood Cell 3.2(L) 4.0 - 9.5 x10(3)/mc L [facility] Red Blood Cell 3.44(L) 4.00 - 5.21 x10(6)/mc L [facility] Hemoglobin 11.1(L) 11.7 - 15.5 g/dL [facility] Hematocrit 32.9(L) 35.7 - 45.8 % [facility] Mean Cell Volume 95.6(H) 82.6 - 94.4 fL [facility] Mean Cell Hemoglobin 32.3(H) 27.1 - 32.0 pg [facility] Mean Cell Hemoglobin Concentration 33.7 31.7 - 35.0 g/dL [facility] Platelet 144(L) 145 - 357 x10(3)/mc L [facility] RDW Standard Deviation 42.6 37.0 - 46.0 fL [facility] RDW coefficient of variation 12.3 11.5 - 14.1 % [facility] Mean Platelet Volume 9.4 7.6 - 12.9 fL [facility] NRBC% auto 0.0 % [facility] NRBC Absolute 0.000 0.000 - 0.000 x10(3)/mc L [facility] Blood 03/18/2023 2:14 PM EDT 03/18/2023 2:24 PM EDT Narrative Resulting Agency Comment Spec In Lab Magdalena Peralta MD HEMATOLOGY ORDERABLE S Performing Organization Address City/[facility] Co de Phone Number [facility] [place] [address] * (ABNORMAL) Sedimentation rate (03/18/2023 2:14 PM EDT) Sedimentation Rate Automated 68(H) 2 - 39 mm/hr [facility] Comment: Effective July 12, 2019 new capillary photometric technology has resulted in a change in reference ranges. It is recommended that each ESR result be reviewed with its own age appropriate reference range. Blood 03/18/2023 2:14 PM EDT 03/18/2023 2:24 PM EDT Narrative Resulting Agency Comment Spec In Lab Kia Viramontes DO HEMATOLOGY ORDERAB LES Performing Organization Address City/[facility]/ZIP Co de Phone Number [facility] [place] [address] * CRP, acute inflammation (03/18/2023 2:14 PM EDT) C-Reactive Protein 3.0 <=4.9 mg/L [facility] Blood 03/18/2023 2:14 PM EDT 03/18/2023 2:24 PM EDT Narrative Resulting Agency Comment Spec In Lab Kia D Wander DO CHEMISTRY ORDERABL ES Performing Organization Address City/[facility]/ZIP Co de Phone Number [facility] [place] [address] * C3 Complement (03/18/2023 2:14 PM EDT) Complement C3 142 90 - 180 mg/dL [facility] Blood 03/18/2023 2:14 PM EDT 03/18/2023 2:24 PM EDT Narrative Resulting Agency Comment Spec In Lab Kia D Wander DO CHEMISTRY ORDERABL ES Performing Organization Address City/[facility]/ZIP Co de Phone Number [facility] [place] [address] * C4 Complement (03/18/2023 2:14 PM EDT) Complement C4 30 10 - 40 mg/dL [facility] Blood 03/18/2023 2:14 PM EDT 03/18/2023 2:24 PM EDT Narrative Resulting Agency Comment Spec In Lab Kia D Wander DO CHEMISTRY ORDERABL ES Performing Organization Address City/[facility]/ZIP Co de Phone Number [facility] [place] [address] * CK (03/18/2023 2:14 PM EDT) Creatine Kinase 38 0 - 160 unit/L [facility] Blood 03/18/2023 2:14 PM EDT 03/18/2023 2:24 PM EDT Narrative Resulting Agency Comment Spec In Lab Kia Viramontes DO CHEMISTRY ORDERABL ES Performing Organization Address City/[facility]/ZIP Co de Phone Number [facility] [place] [address] * DNA Antibody (Double-Stranded) (03/18/2023 2:14 PM EDT) dsDNA Ab <0.6 <=15.0 IU/mL [facility] Comment: <10 negative 10-15 equivocal >15 positive This dsDNA antibody result was generated using a fluoroenzyme immunoassay on the SiBEAM 250 analyzer. This quantitative test is designed to detect IgG antibodies directed against double stranded DNA in human serum. The presence of antibodies that recognize dsDNA is a highly specific marker for systemic lupus erythematosus. Please note that as of 05/26/2022 that this testing is performed by the Special Chemistry Laboratory at [facility]. This change in testing location is associated with a change is testing method and reference intervals. Please review the results of this test in association with the posted reference intervals. Blood 03/18/2023 2:14 PM EDT 03/19/2023 7:19 AM EDT Narrative Resulting Agency Comment Spec In Lab Kia Viramontes DO LAB SEND OUT ORDER JODIE Performing Organization Address [facility] Co de Phone Number [facility] [place] [address] * (ABNORMAL) FRANCISCO Ab by IFA (03/18/2023 2:14 PM EDT) FRANCISCO Ab Screen Test ? Result ?Flag ??Unit ??RefValue Antinuclear Ab, HEp-2 ?Positive 1:2560 ??@ ?<1:80 (Negative) ??Substrate, S ? ADDITIONAL INFORMATION --------- ?Method: Immunofluorescence using HEp-2 cellular substrate. ??FRANCISCO Titer: ? 1:2560 ??FRANCISCO Pattern: ? Speckled ?Test Performed by: ?[facility] ?[address] [place] [address] ?Host Coordinator: Raymond Chaudhry M.D. Ph.D.; CLIA# [id number] ([id number]) [facility] Blood 03/18/2023 2:14 PM EDT 03/18/2023 3:02 PM EDT Narrative Resulting Agency Comment Spec In Lab Kia Viramontes DO CHEMISTRY ORDERABL ES [facility] [place] [address] * Comprehensive metabolic panel (non-fasting) (03/18/2023 2:14 PM EDT) Glucose 93 65 - 199 mg/dL [facility] Comment:Diabetes: >=200 mg/d L plus symptoms Blood Urea Nitrogen 18 8 - 18 mg/dL [facility] Creatinine 0.99 0.70 - 1.20 mg/dL [facility] Sodium 141 135 - 145 mmol/L [facility] Potassium 4.5 3.5 - 5.0 mmol/L [facility] Comment: Please note: ??Patients with WBC >100,000 may have falsely elevated Potassium levels. ??For accurate Potassium quantification in these patients send serum separator tube (gold top) for subsequent determinations. ??Contact the Clinical Chemistry Laboratory if there are any questions. Chloride 106 98 - 107 mmol/L [facility] Carbon Dioxide 24 22 - 31 mmol/L [facility] Anion Gap 11 5 - 15 mmol/L [facility] Calcium 10.0 8.5 - 10.5 mg/dL [facility] Protein, Total 7.3 6.1 - 8.0 g/dL [facility] Albumin 4.3 3.2 - 5.2 g/dL [facility] Aspartate Aminotransferase 26 0 - 30 unit/L [facility] Alanine Aminotransferase 11 0 - 30 unit/L [facility] Alkaline Phosphatase 91 35 - 105 unit/L [facility] Bilirubin, Total 0.4 0.2 - 1.3 mg/dL [facility] Est Glomerular Filtration Rate 62 >=60 mL/min/1. 73 m?? [facility] Comment: This patient's estimated GFR [...] [facility] Co de Phone Number [facility] [place] [address] documented in this encounter Visit Diagnoses Diagnosis Positive FRANCISCO (antinuclear antibody) Other and unspecified nonspecific immunological findings documented in this encounter Care Teams Securities Dealer Relationship Specialty Start Date End Date Magdalena Acosta MD [address] [place] [address] PCP - General Family Medicine 02/05/23 documented as of this encounter
--- OUTSIDE RECORDS SUMMARY | 2024-06-06 14:02 | XMS_ITS | Encounter Summary ---
Author Organization [facility] Address [facility] [place] [address] Care Team Providers Care Maternal Fetal Physician Name Role Phone Magdalena Acosta MD Primary Care Provider [phone] Reason for Visit * Consultation (Routine) - Closed Specialty Diagnoses / Procedures Referred By Contac t Referred To Contact Rheumatology Diagnoses Weakness Kyra Haas MD [facility] [address] [place] [address] [facility] Rheumatology [address] [place] [phone] Referral ID Status Reason Start Date Expiration Date V isits Requested Visits Authorized [id number] Closed Consult, Test & Treat PCP Updated and/or Approved 02/25/2023 02/25/2024 6 6 Encounter Details Date Type Department Care Team (Late st Contact Info) Description 03/18/2023 1:00 PM EDT Office [place] [address] Kia Viramontes, [facility] [place] [address] Magdalena Peralta MD 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 Medical Equipment Sales strength 3+/5 bilaterally; otherwise large muscle groups [...] due to risk of retinal toxicity with ad terminal makeup operator Plaquenil use, which she already does. Recommendations: #mixed connective tissue disease Start hydroxychloroquine 200 mg qd Labs today: repeat FRANCISCO, dsDNA, complements, CBC, CMP, CK, ESR, CRP Follow up 1 month The patient was seen and discussed with Dr. Wander Peralta MD Rheumatology Fellow Pager: [phone] CC: Kyra Haas * Kia Viramontes DO [...] Visit [place] [phone] Markel Borjas MD [facility] DR HEMATOLOGY [place] [address] 11/02/2024 12:00 PM EDT [place] [address] 11/02/2024 1:00 PM EDT Office [place] [phone] Magdalena Peralta MD [facility] [place] [address] 03/01/2025 4:15 PM EDT Office Visit Dermatology at [address] [place] [phone] Marek Bonilla MD [address] [facility], TODD A DERMATOLOGY [place], [place] [phone] documented as of this encounter Results * Comprehensive metabolic panel (non-fasting) (03/18/2023 2:14 PM EDT) Glucose 93 65 - 199 mg/dL [facility] Comment:Diabetes: >=200 mg/d L plus symptoms Blood Urea Nitrogen 18 8 - 18 mg/dL [facility] Creatinine 0.99 0.70 - 1.20 mg/dL [facility] Sodium 141 135 - 145 mmol/L [facility] Potassium 4.5 3.5 - 5.0 mmol/L [facility] Comment: Please note: ??Patients with WBC >100,000 may have falsely elevated Potassium levels. ??For accurate Potassium quantification in these patients send serum separator tube (gold top) for subsequent determinations. ??Contact the Clinical Chemistry Laboratory if there are any questions. Chloride 106 98 - 107 mmol/L [facility] Carbon Dioxide 24 22 - 31 mmol/L [facility] Anion Gap 11 5 - 15 mmol/L [facility] Calcium 10.0 8.5 - 10.5 mg/dL [facility] Protein, Total 7.3 6.1 - 8.0 g/dL [facility] Albumin 4.3 3.2 - 5.2 g/dL [facility] Aspartate Aminotransferase 26 0 - 30 unit/L [facility] Alanine Aminotransferase 11 0 - 30 unit/L [facility] Alkaline Phosphatase 91 35 - 105 unit/L [facility] Bilirubin, Total 0.4 0.2 - 1.3 mg/dL [facility] Est Glomerular Filtration Rate 62 >=60 mL/min/1. 73 m?? [facility] Comment: This patient's estimated GFR [...] Lab Kia Viramontes DO CHEMISTRY ORDERABL ES [facility] [place] [address] * (ABNORMAL) FRANCISCO Ab by IFA (03/18/2023 2:14 PM EDT) FRANCISCO Ab Screen Test ? Result ?Flag ??Unit ??RefValue Antinuclear Ab, HEp-2 ?Positive 1:2560 ??@ ?<1:80 (Negative) ??Substrate, S ? ADDITIONAL INFORMATION --------- ?Method: Immunofluorescence using HEp-2 cellular substrate. ??FRANCISCO Titer: ? 1:2560 ??FRANCISCO Pattern: ? Speckled ?Test Performed by: ?[facility] ?[address] [id number] ?Molder Machine: Raymond Chaudhry M.D. Ph.D.; CLIA# [id number] ([id number]) [facility] Blood 03/18/2023 2:14 PM EDT 03/18/2023 3:02 PM EDT Narrative Resulting Agency Comment Spec In Lab Kia Viramontes DO CHEMISTRY ORDERABL ES [facility] [place] [address] * DNA Antibody (Double-Stranded) (03/18/2023 2:14 PM EDT) dsDNA Ab <0.6 <=15.0 IU/mL [facility] Comment: <10 negative 10-15 equivocal >15 positive This dsDNA antibody result was generated using a fluoroenzyme immunoassay on the [employer] 250 analyzer. This quantitative test is designed [...] SEND OUT ORDER JODIE Performing Organization Address [facility] Co de Phone Number [facility] [place] [address] * CK (03/18/2023 2:14 PM EDT) Creatine Kinase 38 0 - 160 unit/L [facility] Blood 03/18/2023 2:14 PM EDT 03/18/2023 2:24 PM EDT Narrative Resulting Agency Comment Spec In Lab Kia Viramontes DO CHEMISTRY ORDERABL ES Performing Organization Address [facility] Co de Phone Number [facility] [place] [address] * C4 Complement (03/18/2023 2:14 PM EDT) Complement C4 30 10 - 40 mg/dL [facility] Blood 03/18/2023 2:14 PM EDT 03/18/2023 2:24 PM EDT Narrative Resulting Agency Comment Spec In Lab Kia Viramontes DO CHEMISTRY ORDERABL ES Performing Organization Address [facility] Co de Phone Number [facility] [place] [address] * C3 Complement (03/18/2023 2:14 PM EDT) Complement C3 142 90 - 180 mg/dL [facility] Blood 03/18/2023 2:14 PM EDT 03/18/2023 2:24 PM EDT Narrative Resulting Agency Comment Spec In Lab Kia Viramontes DO CHEMISTRY ORDERABL ES Performing Organization Address [facility] Co de Phone Number [facility] [place] [address] * CRP, acute inflammation (03/18/2023 2:14 PM EDT) C-Reactive Protein 3.0 <=4.9 mg/L [facility] Blood 03/18/2023 2:14 PM EDT 03/18/2023 2:24 PM EDT Narrative Resulting Agency Comment Spec In Lab Kia Viramontes DO CHEMISTRY ORDERABL ES Performing Organization Address [facility] Co de Phone Number [facility] [place] [address] * (ABNORMAL) Sedimentation rate (03/18/2023 2:14 PM EDT) Sedimentation Rate Automated 68(H) 2 - 39 mm/hr [facility] Comment: Effective July 12, 2019 new capillary photometric technology has resulted in a change in reference ranges. It is recommended that each ESR result be reviewed with its own age appropriate reference range. Blood 03/18/2023 2:14 PM EDT 03/18/2023 2:24 PM EDT Narrative Resulting Agency Comment Spec In Lab Kia Viramontes DO HEMATOLOGY ORDERAB LES Performing Organization Address [facility] Co de Phone Number [facility] [place] [address] documented in this encounter Visit Diagnoses Diagnosis Positive FRANCISCO (antinuclear antibody) Other and unspecified nonspecific immunological findings documented in this encounter Care Teams Maternal Fetal Physician Relationship Specialty Start Date End Date Magdalena Acosta MD [address] [place] [address] PCP - General Family Medicine 02/05/23 documented as of this encounter
--- OUTSIDE RECORDS SUMMARY | 2024-06-06 14:02 | XMS_ITS | Encounter Summary ---
Author Organization [facility] Address [facility] [place] [address] Care Team Providers Care Brick Shader Name Role Phone Magdalena Acosta MD Primary Care Provider [phone] Encounter Details Date Type Department Care Team (Late st Contact Info) Description 04/27/2023 3:00 PM EDT Office [place] [address] Magdalena Peralta MD [facility] [place] [address] Mixed connective tissue disease Social History Tobacco [...] speckled; VIC negative; Myositis panel with VISUAL ASSOCIATE ab 149.1 (positive); Anti U1RNP IgG 119; [...] 3 months Patient was discussed with Dr. Jnaet Peralta MD Rheumatology Fellow Pager: [phone] * [...] EST Office Visit Hematology [place] [address] Markel Borjas MD [facility] [place] [address] 11/02/2024 12:00 PM EDT Appointment [place] [address] 11/02/2024 1:00 PM EDT Office [place] [address] Magdalena Peralta MD [facility] [place] [address] 03/01/2025 4:15 PM EDT Office Visit Dermatology at [place] [address] [place] [address] Marek Bonilla MD [address] [place] [address] documented as of this encounter Visit Diagnoses Diagnosis Mixed connective tissue disease Other specified diffuse disease of connective tissue documented in this encounter Care Teams Brick Shader Relationship Specialty Start Date End Date Magdalena Acosta MD [address] [place] [address] PCP - General Family Medicine 02/05/23 documented as of this encounter
--- OUTSIDE RECORDS SUMMARY | 2024-06-06 14:02 | XMS_ITS | Encounter Summary ---
Author Organization [facility] [place] [address] Care Team Providers Care Usability Architect Name Role Phone Juniad Deborah Shields APRN Primary Care Provider [phone] Encounter Details Date Type Department Care Team (Latest Contact Info) Description 11/09/2022 10:37 AM EDT - 11/09/2022 4:53 PM EDT Hospital En[place] [address] Nitesh Escobedo MD [facility] [place] [address] Aortic valve stenosis, etiology of cardiac valve [...] through the [facility] Drying Oven Attendant . Issues afterhours and on weekends will be handled by the Hospitalist staff on-call. * Attachments The following attachments cannot be sent through Care Everywhere. * Coronary Angiogram: Post-op (Brazilian) * Right Heart Catheterization: Pulmonary Artery Catheterization: Post-op (Brazilian) documented in this encounter Medications at Time [...] Pre-Procedure H&P Update: Cardiac Catheterization Purnima Thacker [id number] 1955 Chief Complaint: BONILLA HPI: Purnima Thacker [...] AM [facility] Pager: [phone] documented in this encounter Plan of Treatment Upcoming Encounters Date Type Department Care Team (Late st Contact Info) Description 06/23/2024 2:00 PM EST Office Visit Hematology [place] [address] Markel Borjas MD [facility] [address] [place] [address] 11/02/2024 12:00 PM EDT Appoint[place] [phone] 11/02/2024 1:00 PM EDT Office [place] [phone] Magdalena Peralta MD [facility] [place] [address] 03/01/2025 4:15 PM EDT Office Visit Dermatology at [place] [address] [place] [address] Marek Bonilla MD [address], [place] [address] documented as of this encounter Procedures Procedure Name Priority Date/Time Associated Diagnosis Comments CARDIAC CATHETERIZATION Routine 11/10/19 23 1:05 PM EDT Aortic valve stenosis, etiology of cardiac valve disease unspecified Cath [facility] Left Heart Cath & Arts W/Inj & Angio Img S&I ([id number]) 11/09/2022 11:51 AM EDT Aortic valve stenosis, etiology of cardiac valve disease unspecified EKG 12-LEAD Routine 11/09/2022 11:17 AM EDT Aortic valve stenosis, etiology of cardiac valve disease unspecified documented in this encounter Results * CARDIAC CATHETERIZATION (11/09/2022 1:05 PM EDT) Anatomical Region Laterality Modality Other Narrative 11/09/2022 2:01 PM EDT ?[facility] ? Cardiac Catheterization/Intervention Report ? Patient Name: Kirstie, Purnima M. ? Procedure Date: 11/09/2022 ? A #: [id number] ? Primary Physician: Nitesh Escobedo ? Case #: [id number] ? File Name: [id number] ? Catheterization Order Number: [id number] ? [facility] ? Final Report [place], [place] ? Patient Name: ? Purnima M. Kirstie ? ID#: ?[id number] ? : ?1955 ? Procedure Date: ? [...] was designated as ASA Class III. The [facility] clinical frailty scale ?is 4: Vulnerable. ? [...] (Bezet) 457 ms MUSE SYSTEM Calculated P Jasper 44 degrees MUSE SYSTEM Calculated R Jasper 33 degrees MUSE SYSTEM Calculated T Jasper 30 degrees MUSE SYSTEM INTERPRETATION Sinus rhythm Occasional Premature ventricular complexes Otherwise normal ECG When compared with ECG of 21-SEP-2016 12:26, Premature ventricular complexes are now Present IN interval has decreased Nonspecific T wave abnormality has replaced inverted T waves in Inferior leads I personally reviewed the tracing and edited the fellows interpretation Confirmed by fellow MD Anitha, Carissa ([id number]) on 11/09/2022 6:17:28 PM Confirmed by Elsa Linares MD ([id number]) on 11/10/2022 3:47:14 PM MUSE SYSTEM 11/09/2022 [...] Until Wed11/09/22 at 1259, Intra-Operative (Intra-Procedure), Routine 120 (Given - Provid er: Mary Baig RN) verapamiL (Isoptin) (2.5 mg/mL) injection (CANCELED) ONCE PRN, Starting on Wed11/09/22 at 1222, Until Wed11/09/22 at 1259, Administer over 2 Minutes, Intra-Operative (Intra-Procedure) 1222 (Given - Provid er: Blaze Marrero MD) documented in this encounter Care Teams Usability Architect Relationship Specialty Start Date End Date Deborah Quiroga, CURATOR OF EDUCATION PCP - General Family Medicine 03/24/16 02/04/23 documented as of this encounter
--- OUTSIDE RECORDS SUMMARY | 2024-06-06 14:02 | XMS_ITS | Encounter Summary ---
Author Organization [facility] [place] [address] Care Team Providers Care Match Maker Name Role Phone Magdalena Acosta MD Primary Care Provider [phone] Encounter Details Date Type Department Care Team (Latest Contact Info) Description 02/05/2023 9:33 PM EDT - 02/05/2023 11:59 PM EDT [place] [phone] Discharge Disposition: Home Social History Tobacco Use [...] EST Office Visit Hematology [place] [phone] Markel Borjas MD [facility] HEMATOLOGY [place] [address] 11/02/2024 12:00 PM EDT Appointment [place] [phone] 11/02/2024 1:00 PM EDT Office [place] [address] Magdalena Peralta MD [facility] [place] [address] 03/01/2025 4:15 PM EDT Office Visit Dermatology at [address] [place] [address] Marek Bonilla MD [address], [place] [address] documented as of this encounter Procedures Procedure Name Priority Date/Time Associated Diagnosis Comments SURGICAL PATHOLOGY REPORT Routine 02/05/2023 3:00 PM EDT documented in this encounter Results * Surgical Pathology Report (02/05/2023 3:00 PM EDT) Final Diagnosis [id number] ? Location: OPW The signing pathologist has (i) examined the relevant preparation(s) for the specimen(s) and (ii) rendered or confirmed the diagnosis(es). . ?Surgical Pathology DIAGNOSIS Left upper back, skin punch biopsy: - ??Compound dysplastic ??melanocytic nevus with moderate atypia, transected at peripheral specimen edges ?? (see discussion) Electronically signed by: ?Vanna CULP, Jesse Shields Verified: ??02/16/2023 8:04 ?? Dermatopathologist Performed at: ??-[facility] Dept. of Pathology, [place] [address] Protozoologist: Kunal Rubi MD, FCAP, ??CLIA Certificate: [id number] DISCUSSION If there is an obvious clinical [...] labeled A1. ??sns 02/16/2023 8:[address] [facility] SPECIMEN FROM SKIN / Unknown 02/05/2023 3:00 PM EDT 02/05/2023 3:00 PM EDT Marek Bonilla MD PATHOLOGY/CYTOLOGY O RDERABLES [facility] [place] [address] [facility] [place] [address] documented in this encounter Visit Diagnoses Not on filedocumented in this encounter Care Teams Match Maker Relationship Specialty Start Date End Date Magdalena Acosta MD [address] [place] [address] PCP - General Family Medicine 02/05/23 documented as of this encounter
--- OUTSIDE RECORDS SUMMARY | 2024-06-06 14:02 | XMS_ITS | Encounter Summary ---
Author Organization [facility] [place] [address] Care Team Providers Care Java Spring Developer Name Role Phone Magdalena Acosta MD Primary Care Provider Encounter Details Date Type Department Care Team (Late st Contact Info) Description 02/17/2023 2:00 PM EDT Office [place] [phone] Alirio Esparza MD Aortic valve stenosis, etiology [...] EST Office Visit Hematology and Oncology at [place] [phone] Markel Borjas MD [facility] [address] [place] [address] 11/02/2024 12:00 PM EDT Appointment Pulmonology at [place] [address] 11/02/2024 1:00 PM EDT Office Visit Rheumatology at [place] [phone] Magdalena Peralta MD [facility] [place] [address] 03/01/2025 4:15 PM EDT Office Visit Dermatology at [address] [place] [phone] Marek Bonilla MD [address], [place] [address] documented as of this encounter Visit Diagnoses Diagnosis Aortic valve stenosis, etiology of cardiac valve disease unspecified documented in this encounter Care Teams Java Spring Developer Relationship Specialty Start Date End Date Magdalena Acosta MD [address] [place] [address] PCP - General Family Medicine 02/05/23 documented as of this encounter
--- OUTSIDE RECORDS SUMMARY | 2024-06-06 14:02 | XMS_ITS | Encounter Summary ---
Author Organization [facility] [place] [address] Care Team Providers Care Tax Accountant Name Role Phone Deborah Quiroga APRN Primary Care Provider Encounter Details Date Type Department Care Team (Late st Contact Info) Description 11/09/2022 11:30 AM EDT - 11/09/2022 12:30 PM EDT Surgery [place] [address] Nitesh Escobedo MD [facility] [place] [address] CARDIAC CATHETERIZATION Social History Tobacco Use Types [...] 02/05/2023 2:30 PM Marek Bonilla MD [facility] New Medications to be Picked Up None For questions regarding this document or issues relating to this hospitalization on the Medical Service, please contact your inpatient physician through the [facility] Nylon Winder . Issues afterhours and on weekends will be handled by the Hospitalist staff on-call. * Attachments The following attachments cannot be sent through Care Everywhere. * Coronary Angiogram: Post-op (Surinamese) * Right Heart Catheterization: Pulmonary Artery Catheterization: Post-op (Surinamese) documented in this encounter Medications at Time of Discharge Medication Sig Dispensed Refills Start Date End Date nystatin (MYCOSTATIN) 100,000 unit/gram Powder Apply topically 2 times daily as needed. 10/22/2022 TapteraTouch Verio test strips Strip USE DAILY 01/03/2022 TapteraToWir3s Delica Plus Lancet 33 gauge Misc USE [...] 11/09/2022 11:20 AM EDT . [facility] Interventional Cardiology Adult Pre-Procedure H&P Update: Cardiac Catheterization Purnima Thacker [id number] 1955 Chief Complaint: BONILLA HPI: Purnima Thacker [...] Interventional Cardiology 11/09/22 11:43 AM [facility] Pager: [phone] documented in this encounter Plan of Treatment Upcoming Encounters Date Type Department Care Team (Late st Contact Info) Description 06/23/2024 2:00 PM EST Office Visit [place] [address] Markel Borjas MD [facility] DR HEMATOLOGY [place] [address] 11/02/2024 12:00 PM EDT [place]oint[place] [address] 11/02/2024 1:00 PM EDT Office [place] [address] Magdalena Peralta MD [facility] DR [place] [address] 03/01/2025 4:15 PM EDT Office Visit Dermatology at [place] [address] [place] [address] Marek Bonilla MD [address] [place] [address] documented as of this encounter Procedures Procedure Name Priority Date/Time Associated Diagnosis Comments CARDIAC CATHETERIZATION Routine 11/10/19 1:05 PM EDT Aortic valve stenosis, etiology of cardiac valve disease unspecified Cath [facility] Left Heart Cath & Arts W/Inj & Angio Img S&I ([id number]) 11/09/2022 11:51 AM EDT Aortic valve stenosis, etiology of cardiac valve disease unspecified EKG 12-LEAD Routine 11/09/2022 11:17 AM EDT Aortic valve stenosis, etiology of cardiac valve disease unspecified documented in this encounter Results * CARDIAC CATHETERIZATION (11/09/2022 1:05 PM EDT) Anatomical Region Laterality Modality Other Narrative 11/09/2022 2:01 PM EDT ?[facility] ? Cardiac Catheterization/Intervention Report ? Patient Name: Kirstie, Purnima M. ? Procedure Date: 11/09/2022 ? A #: [id number] ? Primary Physician: Nitesh Escobedo ? Case #: [id number] ? File Name: [id number] ? Catheterization Order Number: [id number] ? [facility] ? Final Report [place], [place] ? Patient Name: ? Purnima M. Kirstie ? ID#: ?[id number] ? : ?1955 ? Procedure Date: ? November 09, 2022 ? Case #: ? [id number] ? Room: ? 1 ? Case Physician: [...] was designated as ASA Class III. The [facility] clinical frailty scale ?is 4: Vulnerable. [...] (Bezet) 457 ms MUSE SYSTEM Calculated P Antelope 44 degrees MUSE SYSTEM Calculated R Antelope 33 degrees MUSE SYSTEM Calculated T Antelope 30 degrees MUSE SYSTEM INTERPRETATION Sinus rhythm Occasional Premature ventricular complexes Otherwise normal ECG When compared with ECG of 21-SEP-2016 12:26, Premature ventricular complexes are now Present GA interval has decreased Nonspecific T wave abnormality has replaced inverted T waves in Inferior leads I personally reviewed the tracing and edited the fellows interpretation Confirmed by fellow MD Anitha, Carissa ([id number]) on 11/09/2022 6:17:28 PM Confirmed by Elsa [...] documented in this encounter Care Teams Tax Accountant Relationship Specialty Start Date End Date Deborah Quiroga, HAND MEXICAN FOOD MAKER PCP - General Family Medicine 03/24/16 02/04/23 documented as of this encounter
--- OUTSIDE RECORDS SUMMARY | 2024-06-06 14:02 | XMS_ITS | Encounter Summary ---
Author Organization [facility] [address] Care Team Providers Care Senior Enterprise Architect Name Role Phone Magdalena Acosta MD Primary Care Provider [phone] Reason for Visit * Auth/Cert (Routine) Specialty Diagnoses / Procedures Referred By Contac t Referred To Contact Diagnoses Symptomatic severe aortic stenosis with low ejection fraction NSTEMI, CHF Enrique Chua MD [facility] [place] [address] [facility] Referral ID Status Reason Start Date Expiration Date Visits Re quested Visits Authorized [id number] 1 1 Encounter Details Date Type Department Care Team (Late st Contact Info) Description 05/12/2023 2:50 PM EDT - 05/12/2023 3:50 PM EDT Surgery [place] [address] Antelmo Sharma MD [facility] [place] [address] CARDIAC CATHETERIZATION Social History Tobacco Use Types [...] Patient Age: 67 y.o. Birthdate: 1955 Language: Chinese Race: White Ethnicity: Not nor Admit Date: 05/08/2023 Discharge Date: 05/22/2023 Attending Physician: Alirio Hudson MD Follow-up Recommendations for Providers: Please continue routine management of cardiovascular risk factors including blood pressure, lipids,glucose, etc. Please note any medication changes. Patient to follow up with PCP, Magdalena Acosta MD, or Primary Millinery Copyist, Avis Mejia MD, in ~ 7-10 days. Patient to follow up with Sales Support Rep, Dr. Antelmo Sharma, in 2 weeks with an EKG, Echo, CBC, and CMP. Patient to follow up with Nephrology, their office to arrange. Fprg-Ixnrlh-pk interval: After initial 30 day follow-up appointment , all TAVR patients will follow-up again in one year with an echo. 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 Secondary Diagnoses: Active Hospital Problems Diagnosis S/P TAVR (transcatheter aortic valve replacement) Cardiogenic shock Symptomatic severe aortic stenosis with low ejection fraction Mild coronary artery disease by [facility] 11/09/2022 Heart failure with reduced ejection fraction [...] Tube Placement Right 05/18/2023 Laure Ricks PA [facility] INTERVENTIONL RAD PRG CATH PLMT LEFT HEART CATH & ARTS W/INJ & ANGIO IMG S&I N/A 11/09/2022 CORONARY ANGIOGRAPHY; W [facility],POSSIBLE PCI (WRVU 5.6) performed by Mario Alberto Escobedo MD at [facility] CATH LABS PRG COMBINED RIGHT & LEFT HEART CATH W/INJ L VENTRICULOGRAPHY, IMG S&I N/A 05/12/2023 COMBINED RIGHT & LEFT HEART CATH,INC INJ FOR L VENTRICULOGRAPHY (WRVU 5.99) performed by Antelmo Sharma MD at [facility] CATH LABS PRO AORTOPLAS FOR SUPRAVALV STEN N/A 09/21/2016 @AORTOPLASTY FOR SUPRAVALVULAR STENOSIS (WRVU 29.33) performed by Alirio Hudson MD at [facility] MAIN OR PRO REPLACE AORTIC VALVE (TAVR/FEDERICO)PERC FEMORAL ARTERY APPROACH 05/12/2023 @TRANSCATHETER AORTIC VALVE REPLACEMENT (TAVR), PERCUTANEOUS FEMORAL (WRVU 22.47) performed by Alirio Hudson MD at [facility] CATH LABS PRO REPLACEMENT PROSTHETIC AORTIC VALVE OPEN W CARDIOPULMONARY BYPASS HOMOGRF/STENT N/A 09/21/2016 @REPLACE AORTIC VALVE, OPEN, W\CPB, W\PROSTHETIC VALVE (WRVU 41.32) performed by Alirio Hudson MD at [facility] MAIN OR Prior To Admission Medications [...] Major Procedures/Operations: 05/12/23: Successful right transfemoral TAVR Yraud-qp-Wishc with a 23 mm Lai 3 THV. [...] she was brought to the clinical laboratory science professor the following morning where Drs. Alirio Hudson [...] you have questions. Please call your Sales Support Rep's office if you have any discharge or drainage from your procedural sites. Your Sales Support Rep, Dr. Antelmo Sharma and/or the Pie Icer Machine may be reached at . Antibiotic prophylaxis: You will need to take antibiotics prior to many invasive tests and treatments, such as dental cleaning, which should be done every 6 months. Your primary care physician or your dentist can prescribe this medication. Please refer to the card with the [place] [employer] Guidelines for more information. You have been provided with a copy of this card. Please refer to the [place] [employer] Guidelines for more information. Good [...] friends, go to a movie, go to denominational, etc. Heavy activities: No hunting, skiing, jogging, [...] should resume a low fat, low cholesterol, [place] [employer] Diet Driving: No restrictions. Shower/Bath: You may shower daily. No baths, soaking, or swimming for the first week. Wound care: Wash the sites daily with soap and rinse well, pat dry. Assess for any signs of infection such as increased redness, pain, warmth or drainage. Please call your electronic system engineer's office if you have any discharge or drainage from your procedural sites. If there is a lot of swelling, apply mamta wraps during the day and remove at bedtime. Elevate your legs when you are sitting. Home oxygen therapy: N/A Follow up appointments: Please schedule a follow-up appointment with your PCP, Magdalena Acosta MD, or Primary Millinery Copyist in ~ 7-10 days. You have a follow-up appointment with your Sales Support Rep, Dr. Antelmo Sharma, in 2 weeks with an EKG, Echo, and labs prior to your appointment. You will need follow-up with Nephrology, their office will arrange. Gawh-Rnwyyy-tp interval: After initial 30 day follow-up appointment , all TAVR patients will follow-up again in one year with an echo. Cardiac Rehabilitation: Purnima Thacker was seen today regarding participation in the outpatient Phase 2 Cardiac Rehabilitation at [facility]. The patient agrees to a referral to this program. The referral will be sent at discharge and the patient should be contacted by the Program within 1- 2 weeks from discharge. Future Appointments and Orders Future Appointments and Orders Future Appointments Provider Department Dept Phone 07/29/2023 11:00 AM Magdalena Peralta MD [place]ology at [facility] [place]: Manager Leadership Development Area [phone] 02/11/2024 2:00 PM Marek Bonilla MD Dermatology at [place] Arrive at: [facility] [address] [phone] Future Orders Complete By Expires Type and Screen Future Surgery, [facility] SAME DAY PROGRAM ONLY) [[id number] Custom] 05/11/2023 Process Instructions: This test is intended ONLY for patients with upcoming surgery for testing prior to the day of surgery obtained through the same day program (4V or SDP). For ALL OTHER PATIENTS, order a Type and Screen (UWR087) This order includes the physician order for an ABO Recheck if requested by the Blood Bank. Scheduling Instructions: Comments: Questions: Date of surgery: CBC (with Diff) [XPB989 Custom] 06/05/2023 12/05/2023 Process Instructions: INCLUDES: WBC, RBC, Hgb, Hct, Platelets, RBC Indices and Differential Scheduling Instructions: Comments: Questions: Comprehensive metabolic panel (non-fasting) [LAB17 Custom] 06/05/2023 08/20/2023 Process Instructions: INCLUDES: Calcium, T Protein, Albumin, AST, ALT, Alk Phos, T Bili, BUN, Creat, GFR, Glucose, Lytes. Scheduling Instructions: Comments: Questions: Echocardiogram Transthoracic [15879 CPT(R)] 06/05/2023 12/05/2023 Process Instructions: Scheduling Instructions: Questions: Where will study be performed?: [facility] Does the patient have Congenital Heart Disease?: Does patient require sedation?: GA rationale: EKG 12 Lead [34739 CPT(R)] 06/05/2023 12/05/2023 Process Instructions: Scheduling Instructions: Questions: Which location will this be performed?: [place] Is a rhythm strip needed?: No [facility] Devices [EQ161 Custom] As directed Process Instructions: Scheduling Instructions: Questions: Device Needed: WALKER (E0143) Patient Height (cm): 154.9 cm (5' 0.98) Patient Weight: 75.4 kg (166 lb 3.2 oz) Diagnosis: Unsteady gait when walking Referral to Cardiac Rehab [GPX379 Custom] As directed Process Instructions: If no progress note charted, please enter Clinical details in comments. Scheduling Instructions: Questions: My question or request is: s/p TAVR. Cardiac rehab at [facility]. Referral to Home Health [REF34 Custom] As directed Process Instructions: If no progress note charted, please enter Clinical details in comments. Scheduling Instructions: Comments: DOCUMENTATION FOR VNA SERVICES PATIENT'S LOCATION: Purnima Thacker [address] [place] [phone] (home) Crystal Growing Technician's Name: Irineo and brother Raymond In discussion with the attending physician, it is certified that this patient is under his/her careand that MD, or an SERVICES MANAGER, MANAGER RETENTION, or PA who is working directly with him/her, had a iipq-ac-ksfe encounter that meets the physician ngvu-yg-vwgx encounter requirements with this patient on 05/22/2023. [...] for managing ADLs. HOME HEALTH CARE AGENCY: [facility]. [address] [facility] [address] PHONE: [phone] FAX: [phone] Start of care: Ideally 24-48 hours after [...] patient's PCP: Magdalena Acosta MD [address] [facility] [phone] All VNA agencies which cover the area [...] Surgery Date: 05/22/2023 CC: Magdalena Acosta MD [place] Monte[place]ario Alberto maxwell MD [address] [place] [address] [place] [address] documented in this encounter Discharge Instructions * Patient Instructions* Vinod Juárez PA - 05/22/2023 9:32 AM EDT TAVR Discharge Instructions: Call your doctor if: You have a fever of greater than 101 degrees, shaking chills, if you develop redness or drainage from your procedure sites, or if you have questions. Please call your Sales Support Rep's office if you have any discharge or drainage from your procedural sites. Your Sales Support Rep, Dr. Antelmo Sharma and/or the Pie Icer Machine may be reached at . Antibiotic prophylaxis: You will need to take antibiotics prior to many invasive tests and treatments, such as dental cleaning, which should be done every 6 months. Your primary care physician or your dentist can prescribe this medication. Please refer to the card with the [place] [employer] Guidelines for more information. You have been provided with a copy of this card. Please refer to the [place] [employer] Guidelines for more information. Good [...] friends, go to a movie, go to denominational, etc. Heavy activities: No hunting, skiing, jogging, [...] should resume a low fat, low cholesterol, [place] [employer] Diet Driving: No restrictions. Shower/Bath: You may shower daily. No baths, soaking, or swimming for the first week. Wound care: Wash the sites daily with soap and rinse well, pat dry. Assess for any signs of infection such as increased redness, pain, warmth or drainage. Please call your electronic system engineer's office if you have any discharge or drainage from your procedural sites. If there is a lot of swelling, apply mamta wraps during the day and remove at bedtime. Elevate your legs when you are sitting. Home oxygen therapy: N/A Follow up appointments: Please schedule a follow-up appointment with your PCP, Magdalena Acosta MD, or Primary Millinery Copyist in ~ 7-10 days. You have a follow-up appointment with your Sales Support Rep, Dr. Antelmo Sharma, in 2 weeks with an EKG, Echo, and labs prior to your appointment. You will need follow-up with Nephrology, their office will arrange. Fbzm-Offorp-kk interval: After initial 30 day follow-up appointment , all TAVR patients will follow-up again in one year with an echo. Cardiac Rehabilitation: Purnima M Kirstie was seen today regarding participation in the outpatient Phase 2 Cardiac Rehabilitation at [facility]. The patient agrees to a referral [...] ins ( tef) Haven Ba, PT Pager: [phone] Physical Therapy Inpatient Rehabilitation Department * Nico [...] 0600 and on the weekends please page [phone]. * Jory Paniagua - 05/20/2023 3:52 PM [...] vomiting Last Bowel Movement: 05/20/23 Jory Paniagua Clam Shucker * Tong Mike, OT - 05/20/2023 3:16 [...] Tube Placement Right 05/18/2023 Laure Ricks PA [facility] INTERVENTIONL RAD PRG CATH PLMT LEFT HEART CATH & ARTS W/INJ & ANGIO IMG S&I N/A 11/09/2022 CORONARY ANGIOGRAPHY; W [facility],POSSIBLE PCI (WRVU 5.6) performed by Mario Alberto Escobedo MD at [facility] CATH LABS PRG COMBINED RIGHT & LEFT HEART CATH W/INJ L VENTRICULOGRAPHY, IMG S&I N/A 05/12/2023 COMBINED RIGHT & LEFT HEART CATH,INC INJ FOR L VENTRICULOGRAPHY (WRVU 5.99) performed by Antelmo Sharma MD at [facility] CATH LABS PRO AORTOPLAS FOR SUPRAVALV STEN N/A 09/21/2016 @AORTOPLASTY FOR SUPRAVALVULAR STENOSIS (WRVU 29.33) performed by Alirio Hudson MD at [facility] MAIN OR PRO REPLACE AORTIC VALVE (TAVR/FEDERICO)PERC FEMORAL ARTERY APPROACH 05/12/2023 @TRANSCATHETER AORTIC VALVE REPLACEMENT (TAVR), PERCUTANEOUS FEMORAL (WRVU 22.47) performed by Alirio Hudson MD at [facility] CATH LABS PRO REPLACEMENT PROSTHETIC AORTIC VALVE OPEN W CARDIOPULMONARY BYPASS HOMOGRF/STENT N/A 09/21/2016 @REPLACE AORTIC VALVE, OPEN, W\CPB, W\PROSTHETIC VALVE (WRVU 41.32) performed by Alirio Hudson MD at [facility] MAIN OR Social History: Patient lives alone. Home Setup: Pt lives on one level with tub shower and three steps to enter. DME: none used MANAGER MOLECULAR Baseline ADL/Mobility: Independent with ADLs and IADLs. [...] Vision & Perception: corrective lenses time study observer Communication: WFL Range of motion, strength, coordination: [...] Discharge planning. Total Minutes, Occupational Therapy: 28 ([id number]) OT Evaluation Code Rationale: Diagnosis & Pertinent [...] 0600 and on the weekends please page [phone]. * Rylie Rodriguez MD - 05/19/2023 3:59 [...] and plan. Cynthia Blackburn MD Nephrology Pager: [phone] * Diana Espino - 05/19/2023 1:49 PM EDT Photographic Colorist Encounter Note Patient Name: Purnima Thacker : [id number] MR#: [id number] Admit Date: 05/08/2023 9:14 AM Hospital Day [...] as stated. Total Minutes, Physical Therapy: 38 (1529-5398) Henrik Navarrete PTA Pager: [phone] Physical Therapy Inpatient Rehabilitation Department * Nico [...] 0600 and on the weekends please page [phone]. * Laure Ricks PA - 05/19/2023 7:56 [...] Ricks PA-C Interventional Radiology IR Team Pager [phone] * Consuelo Espinoza RN - 05/18/2023 4:13 PM EDT ANGIO NURSING DATABASE Name: Purnima Thacker Date of : 1955 AGE: 67 y.o. Address: [address] [place] [phone] (home) Mobile: No relevant phone numbers on [...] fraction I35.0 Mild coronary artery disease by [facility] 11/09/2022 I25.10 Heart failure with reduced ejection [...] and plan. Cynthia Blackburn MD Nephrology Pager: [phone] * Magdalena Puri, GAS MANAGER - 05/18/2023 10:51 AM EDT Images from the original note were not included. [facility] [place] [address] STRUCTURAL HEART DISEASE CONSULTATION NOTE PRIMARY CARE [...] stenosis. She is now status post TAVR Huibe-dw-Khsbg with a 23 mm Lai 3 THV 05/12/[address] Sharma. Preliminary findings: Successful right transfemoral TAVR Ttzth-iz-Fexfh with a 23 mm Lai 3 THV. [...] ejection fraction Mild coronary artery disease by [facility] 11/09/2022 Heart failure with reduced ejection fraction [...] mg 90 mg Oral BID Mara Serrano GAS MANAGER 90 mg at 05/18/23 0825 sodium chloride [...] stenosis. She is now status post TAVR Aiwvz-kt-Nczsw with a 23 mm Lai 3 THV 05/12/[address] Sharma. Janet TAVR case notable for coronary LAD protective MINNA. Status post TAVR, the patient was transferred to [facility] for pressor and inotropic support. [...] Magdalena Puri APRN Structural Heart Team Pager [phone] Team Office Please see addendum by Dr. Sharma for final plan and recommendations Associated attestation - Antelmo Sharma MD - 05/19/2023 10:52 PM EDT I have reviewed Magdalena Puri APRN's above history and I agree with the details as written. The assessment and plan were formulated in discussion with me and I agree with them as documented. Antelmo Sharam MD Pager [phone] * Nico Palacios PA - 05/18/2023 8:13 [...] 0600 and on the weekends please page [phone]. * Loli Hernandez, PT - 05/17/2023 5:27 [...] plan as stated. Time IN / OUT: 3124-0159 Total Minutes, Physical Therapy: 54 Billing Code: te-sx2, te-f, angely HERNANDEZ PT Pager: [phone] Physical Therapy Inpatient Rehabilitation Department * Cynthia [...] Well controlled. Cynthia Blackburn MD Nephrology Pager: [phone] * [place], Mara, ANURAG - 05/17/2023 8:26 AM EDT [...] 0600 and on the weekends please page [phone]. * CurtistierneymeccaGuerda C - 05/16/2023 10:44 AM EDT Nutrition Services Note - Low Nutrition Acuity Purnima Thacker is a 67 y.o. female Reason for intervention: hospital day 9 Nutrition Plan: Continue diet order Encourage good PO Lasix and Zofran noted Added special serve: open containers Monitor weight Patient scheduled for a hospital day 9 nutrition evaluation. Field Artillery Operations Specialist met with pt at bedside. Pt reports that her appetite and PO has much improved since admission. Denies nausea/vomiting or trouble chewing/swallowing. Field Artillery Operations Specialist provided snack list but pt not interested in adding snacks at this time. Her only concern was that she is worried that she will eat too much which will cause too much pressure in her stomach. Field Artillery Operations Specialist assured pt and suggested eating smaller [...] Last Bowel Movement: 05/10/23 Guerda Del Valle Clam Shucker * Vinod Juárez PA - 05/16/2023 10:19 [...] 0600 and on the weekends please page [phone]. * Michael Jeffers MD - 05/16/2023 8:11 AM EDT Images from the original note were not included. Hypertension-Nephrology Inpatient Follow-up Purnima Thacker [id number] 1955 ID: 67 y.o. old female seen [...] IRONSAT 12 (L) 05/16/2023 SFOLATE >20.0 07/03/2022 [id number] 07/03/2022 Lab Results Component Value Date [...] Dr. Ayoub. Please contact me at phone: [phone] or pager: [phone] with any questions. Michael Jeffers MD Nephrology [...] -Nephrology consulted, labs and renal US ordered -[place] removed, ambulated around the unit -bilateral pleural [...] 0600 and on the weekends please page [phone]. * Hortencia Cody MD - 05/15/2023 2:07 [...] not included. Hypertension-Nephrology Inpatient Follow-up Purnima Thacker [id number] 1955 ID: 67 y.o. old female seen [...] HGB 7.8 (L) 05/13/2023 SFOLATE >20.0 07/03/2022 [id number] 07/03/2022 Lab Results Component Value Date [...] Dr. Ayoub. Please contact me at phone: [phone] or pager: [phone] with any questions. Michael Jeffers MD Nephrology [...] last 720 hours. T/L/D Art ETT CVL [place] ASSESSMENT, MANAGEMENT, and DECISION MAKIN y.o. female [...] outlined inthis evaluation. HAVEN BA, PT Pager: [phone] Physical Therapy Inpatient Rehabilitation Department Time IN / OUT: 8207-0424 Total time: Total Minutes, Physical Therapy: 30 [...] 0600 and on the weekends please page [phone]. * Antelmo Sharma MD - 05/14/2023 7:56 AM EDT Images from the original note were not included. [facility] [address] [place], [place] [address] STRUCTURAL HEART DISEASE CONSULTATION NOTE PRIMARY CARE [...] stenosis. She is now status post TAVR Eedmc-lm-Ywgca with a 23 mm Lai 3 THV 05/12/[address] Sharma. Preliminary findings: Successful right transfemoral TAVR Nqabv-mv-Kbmyz with a 23 mm Lai 3 THV. [...] ejection fraction Mild coronary artery disease by [facility] 11/09/2022 Heart failure with reduced ejection fraction [...] stenosis. She is now status post TAVR Pdrgg-gs-Wxhio with a 23 mm Lai 3 THV 05/12/[address] Sharma. Janet TAVR case notable for coronary LAD protective MINNA. Status post TAVR, the patient was transferred to [facility] for pressor and inotropic support. [...] Brody Kaplan APRN Structural Heart Team Pager [phone] Team Office Please see addendum by Dr. [...] exposure. Nephrology consultationtoday. Antelmo Sharma MD Pager [phone] * Antelmo Cardenas RN - 05/14/2023 5:18 AM EDT Pt AOx4, complaining of mild/moderate generalized pain (states her Meloxicam is effective at home) currently refusing prn oxycodone. NAEON, hemodynamically stable on Milrinone, Maps >65, ST in [id number]'s down to NSR with frequent multifocal PVC's. [...] [facility] [place] [address] STRUCTURAL HEART DISEASE PROGRESS NOTE PRIMARY CARE [...] stenosis. She is now status post TAVR Akgym-rv-Dypuz with a 23 mm Lai 3 THV 05/12/[address] Sharma. Preliminary findings: Successful right transfemoral TAVR Dvtpd-wu-Cwsuf with a 23 mm Lai 3 THV. [...] or perforation. Interval Events: - Transferred to [facility] post- TAVR for pressor/inotropic support [...] ejection fraction Mild coronary artery disease by [facility] 11/09/2022 Heart failure with reduced ejection fraction [...] stenosis. She is now status post TAVR Kzcfw-gb-Zlzsr with a 23 mm Lai 3 THV 05/12/[address] Sharma. Janet TAVR case notable for coronary LAD protective MINNA. Status post TAVR, the patient was transferred to [facility] for pressor and inotropic support. [...] Brody Kaplan APRN Structural Heart Team Pager [phone] Team Office Please see addendum by Dr. [...] DAPT moving forward. Antelmo Sharma MD Pager [phone] * KaBonita stewart PA - 05/13/2023 8:30 AM EDT Cardiac Surgery Progress Note Purnima Thacker is a 67 y.o. 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 PMH of s/p tissue AVR (2017), mixed connective tissue disease HTN, HLD, NICOLAS, diverticulosis, rosacea, essential tremor, and depression. 24h Events: From clinical laboratory science professor for above procedure Extubated at ~1600 to [...] soft b/l, no evidence of hematoma. Tubes/Lines/Drains: [place], RIJ, A-line, Art, PIV Assessment/Plan: 67 y.o. [...] 0600 and on the weekends please page [phone]. * Onelia Schwartz MD - 05/12/2023 1:44 [...] ejection fraction Mild coronary artery disease by [facility] 11/09/2022 Heart failure with reduced ejection fraction [...] FiO2 weaned to 40%. 1105: ABG 7.34/42/73/22 7769-9265: SBT performed and passed on these settings [...] PCP: Magdalena Acosta MD PCP phone number: [phone] Date of Admission: 05/08/2023 ( Hospital Day [...] 0705/12/2331705/12/2310505/11/23193905/11/231446 PHART -- 7.34* 7.34* -- -- XLO5TQF -- 30* 30* -- -- PO2ART -- 72* 81* -- -- OFD4AAI -- 16.0* 15.7* -- -- LACTATEVEN 2.4* 2.7* 2.7* 4.8* 2.9* VBG (Venous Blood Gas) Recent Labs 05/12/23 0700 05/12/2331705/12/2310505/11/23193905/11/231446 LACTATEVEN 2.4* 2.7* 2.7* 4.8* 2.9* Mixed Venous Sat Recent Labs 05/12/23 0508 05/12/23 0321 05/12/23 0114 05/12/23 0030 [id number] 30.7 32.7 37.3 25.1 Objective: Vitals Last [...] have questions please contact the health care giver that requested your imaging first. Electronically signed by: ALIX RUVALCABA MD, [facility] ([phone]), at 05/10/2023 1:[address] Cardiac for [...] have questions please contact the health care giver that requested your imaging first. Electronically signed by: Cullen Narayanan MD, [facility] ([phone]), at 05/11/2023 4:[address] Angiogram Abdomen [...] have questions please contact the health care giver that requested your imaging first. Electronically signed by: Eileen Gomes MD, [facility] ([phone]), at 05/11/2023 2:42 PM XR Chest One [...] have questions please contact the health care giver that requested your imaging first. Chest One [...] have questions please contact the health care giver that requested your imaging first. Assessment & [...] and inotrope. She is planned for a drwwo-um-wjfbh TAVR this morning, which should hopefully improve [...] MD, FACP, FACC Section of Cardiovascular Medicine [facility] Artificial Breastwaredresser [facility] at [facility] [place] * Noreen Deutsch RN - 05/12/2023 5:21 [...] ejection fraction Mild coronary artery disease by [facility] 11/09/2022 Heart failure with reduced ejection fraction [...] 05/11/2023 4:11 PM EDT Reported off to BOTTLE SORTER and pt transferred over in the bed for higher level of care. * Antelmo Sharma MD - 05/11/2023 9:45 AM EDT Images from the original note were not included. [facility] [place] [id number] STRUCTURAL HEART DISEASE CONSULTATION NOTE PRIMARY CARE [...] who had been referred for possible TAVR qpoof-go-waobr evaluation. Her primary symptoms are of dyspnea [...] [facility]. 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 She states [...] ejection fraction Mild coronary artery disease by [facility] 11/09/2022 Heart failure with reduced ejection fraction [...] blood, send to lab ([facility]) Result Value Ref Range Lactate WB 3.1 (H) 0.5 - 2.2 mmol/L Heparin (unfractionated) Level Result Value Ref Range Heparin UFH Level 0.46 IU/mL Lactate, whole blood, send to lab ([facility]) Result Value Ref [...] leads Confirmed by MD Harshil, Enrique Bell ([id number]) on 05/10/2023 8:11:46 AM Cardiac Cath 11/09/2022 [...] to decompensating HFrEF, she was transferred to [facility] this afternoon for further management. TAVR CT imaging support for adequate ileofemoral access. Given her acute deterioration today, will planfor RTF TAVR on 05/12/2023. Brody Kaplan APRN Structural Heart Disease Pager [phone] Please see addendum by Dr. Sharma for [...] signed and dated. Antelmo Sharma MD Pager [phone] * Harini Lance MD - 05/11/2023 6:06 AM EDT Images from the original note were not included. Cardiology Progress Note Patient info: Name: Purnima Thacker : 1955 PCP: Magdalena Acosta MD PCP phone number: [phone] Date of Admission: 05/08/2023 ( Hospital Day [...] have questions please contact the health care giver that requested your imaging first. Electronically signed by: ALIX RUVALCABA MD, [facility] ([phone]), at 05/10/2023 1:25 PM TTE: 05/08 -Left [...] 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) Mild coronary artery disease by [facility] 11/09/2022 Hyperlipidemia, unspecified NICOLAS (obstructive sleep apnea) [...] PCP: Magdalena Acosta MD PCP phone number: [phone] Date of Admission: 05/08/2023 ( Hospital Day [...] 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) Mild coronary artery disease by [facility] 11/09/2022 Hyperlipidemia, unspecified NICOLAS (obstructive sleep apnea) [...] PCP: Magdalena Acosta MD PCP phone number: [phone] Date of Admission: 05/08/2023 ( Hospital Day [...] Gas) No results found for: PHART, PO2ART, KQG9QAE, YXW6TMO Microbiology: Microbiology Results (Last 30 days) No [...] Healthy Menu Choices/Cardiac diet ([facility]) Lines: Peripheral IV Line - Single Lumen [...] 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) Mild coronary artery disease by [facility] 11/09/2022 Hyperlipidemia, unspecified NICOLAS (obstructive sleep apnea) [...] fraction I35.0 Mild coronary artery disease by [facility] 11/09/2022 I25.10 Heart failure with reduced ejection fraction due to heart valve disease I50.20, I38 Cardiogenic shock R57.0 S/P TAVR (transcatheter aortic valve replacement) Z95.2 Past Medical History: Diagnosis Date Anemia Past Surgical History: Procedure Laterality Date PRG CATH PLNM LEFT HEART CATH & ARTS W/INJ & ANGIO IMG S&I N/A 11/09/2022 CORONARY ANGIOGRAPHY; W [facility],POSSIBLE PCI (WRVU 5.6) performed by Mario Alberto Escobedo MD at [facility] CATH LABS PRO AORTOPLAS FOR SUPRAVALV STEN N/A 09/21/2016 @AORTOPLASTY FOR SUPRAVALVULAR STENOSIS (WRVU 29.33) performed by Alirio Hudson MD at [facility] MAIN OR PRO REPLACEMENT PROSTHETIC AORTIC VALVE OPEN W CARDIOPULMONARY BYPASS HOMOGRF/STENT N/A 09/21/2016 @REPLACE AORTIC VALVE, OPEN, W\CPB, W\PROSTHETIC VALVE (WRVU 41.32) performed by Alirio Hudson MD at [facility] MAIN OR Social History and Habits: [...] fraction I35.0 Mild coronary artery disease by [facility] 11/09/2022 I25.10 Heart failure with reduced ejection fraction due to heart valve disease I50.20, I38 Cardiogenic shock R57.0 S/P TAVR (transcatheter aortic valve replacement) Z95.2 Past Medical History: Diagnosis Date Anemia Past Surgical History: Procedure Laterality Date PRG CATH [facility] LEFT HEART CATH & ARTS W/INJ & ANGIO IMG S&I N/A 11/09/2022 CORONARY ANGIOGRAPHY; W [facility],POSSIBLE PCI (WRVU 5.6) performed by Mario Alberto Escobedo MD at [facility] CATH LABS PRO AORTOPLAS FOR SUPRAVALV STEN N/A 09/21/2016 @AORTOPLASTY FOR SUPRAVALVULAR STENOSIS (WRVU 29.33) performed by Alirio Hudson MD at [facility] MAIN OR PRO REPLACEMENT PROSTHETIC AORTIC VALVE OPEN W CARDIOPULMONARY BYPASS HOMOGRF/STENT N/A 09/21/2016 @REPLACE AORTIC VALVE, OPEN, W\CPB, W\PROSTHETIC VALVE (WRVU 41.32) performed by Alirio Hudson MD at [facility] MAIN OR Social History and Habits: [...] which prompted her to present to [employer]. She also endorses some intermittent retrosternal chest pain with exertion.She endorses some dizziness with exertion, but has not gotten faint or passed out. At [employer] she was noted to be afebrile, blood pressure 105/64, HR 120s, satting 95% on 2L NC. Labs from [employer] are below, of note she had [...] which prompted the transfer to us. [facility] labs: CBC - Hgb 10.5 CMP - Cr 1.1 BNP 14996 HsTrop 1358 Lactate 1.6 D-dimer 1183 Interval [...] Klaudia Reid MD Internal Medicine PGY-1 Pager [phone], M1-S1 Service Associated attestation - Juan Luis Gonzalez MD - 05/08/2023 10:00 PM EDT Cardiology Attending Addendum Active Hospital Problems Diagnosis Symptomatic severe aortic stenosis with low ejection fraction Heart failure with reduced ejection fraction due to heart valve disease Mild coronary artery disease by [facility] 11/09/2022 Hyperlipidemia, unspecified History of aortic valve [...] PCP: Magdalena Acosta MD PCP phone number: [phone] Date of Admission: 05/08/2023 ( Hospital Day 0 days ) Attending:Enrique Chua MD ID: Purnima Thacker is a 67 y.o. female w/ PMH of s/p bioprosthetic AVR in 2016 with recent concern for severe restenosis, HTN, HLD, mixed connective tissue disease, who presents in transfer from [employer] [employer] with worsening BONILLA and weight gain [...] days, which promptedher to present to [employer]. She also endorses some intermittent retrosternal chest pain with exertion. She endorses some dizziness with exertion, but has not gotten faint or passed out. At [employer] she was noted to be afebrile, blood pressure 105/64, HR 120s, satting 95% on 2L NC. Labs from [employer] are below, of note she had [...] which prompted the transfer to us. [facility] labs: CBC - Hgb 10.5 CMP - Cr 1.1 BNP 76199 HsTrop 1358 Lactate 1.6 D-dimer 1183 Vasoactive [...] disease, who presents [facility] BONILLA and weight gain concerning [...] Healthy Menu Choices/Cardiac diet ([facility]) DVT Prophylaxis: heparin gtt GI Prophylaxis: none [...] to the planned procedure. Hand Hygiene: The inserter operator did perform hand hygiene prior to [...] Successful arterial line placement. Crispin Timmons MD Pie Icer Machine Associated attestation - Onelia Schwartz MD - [...] (flow was non-pulsatile) and appearance of blood. [place] catheter was placed and locked at 55 [...] achieved * Care Management Discharge - Aliza aMrtino RN - 05/22/2023 9:20 AM EDT CARE [...] information for follow-up [facility] [address] [place] [address] Cardiac Rehab, [address] [place] [address] [facility], [place] [address] [place] [address] Transportation: family or friend will provide *Brother [...] Type: *No Product type* / Secondary Insurance: [employer] [place] Prescription Coverage: Yes This plan was formulated with input from patient, family (please identify family/friend involved ifapplicable) and team. All are in agreement with plan. Aliza Martino MSN-Ed, RN ACM automatic bandsaw tender Office of Care Management Pager #[phone] * Plan of Care - Favian Mckeon [...] Chaudhary RN - 05/21/2023 4:46 PM EDTSummary: [facility] referral OFFICE OF CARE MANAGEMENT [...] geographic area. They have requested referrals to: [facility] [address] [place] [address] Ortho Care Located @ [place], [place] Note routed to a Moisture Conditioner Operator who will communicate referrals to facilities and provide any required information. Transportation: family or friend will provide *Brother Raymond on Tuesday 05/22 at 1000 Barriers to discharge: Does not have home 22/02 assist available until tomorrow Tuesday 05/22 Plan going forward: Discharge home into the 22/02 home care of brother Raymond [facility] and [facility] PT/OT services on Tuesday 05/22 [...] Attending: All Staff: Staff Role Juanita Almaguer Copy Writer Laure Ricks PA Physician Data Modeler Magdalena Rodriguez meter supervisor Nurse Consuelo Espinoza meter supervisor Nurse Post-operative diagnosis/Indication: Right pleural effusion Name [...] Type: *No Product type* / Secondary Insurance: [facility] [place] Last Physical Therapy Recommendation: [...] planning needs. provide the [facility], Office of Care Management letter from the Erp Developer pertaining to rehab referrals. provide a [...] referral. They have requested referrals to: [facility] [address] [place] [address] [facility] ([facility]) [address] [place] [address] (Accepts pts only after exhausting all other local SNF options) [facility] ([facility]) ([facility]) [address] [place] [address] PHONE: [phone] FAX: [phone] [facility] ([facility]) [facility]) [address] [place] [address] PHONE: [phone] FAX: [phone] Note routed to a Moisture Conditioner Operator who will communicate referrals to facilities [...] 05/17/2023 10:25 AM EDT [facility]ATION Purnima Thacker was seen today regarding participation in the outpatient Phase 2 Cardiac Rehabilitation at [facility]. The patient agrees to a referral [...] original note were not included. [facility] NEPHROLOGY/HYPERTENSION CONSULT NOTE PATIENT: Purnima Thacker [...] in her course. She ultimately underwent a xjpse-oz-hhqra procedure on and tolerated it well (see operative details). [facility] on some pressors support.. [...] 1423 05/12/23 1105 PHART 7.39 7.37 7.34* MZX3LRD 33* 36 42 PO2ART 101 102 73* VYW2XET 19.5* 20.4 22.1 LACTATEVEN 1.5 1.8 2.8* CYB0LTN 40 40 40 PFRATIOART2 252 255 182 VBG (Venous Blood Gas) Recent Labs 05/12/23 1557 05/12/23 1423 05/12/23 1105 LACTATEVEN 1.5 1.8 2.8* Mixed Venous Sat Recent Labs 05/12/23 1425 05/12/23 0508 05/12/23 0321 [id number] 59.9 30.7 32.7 LFT's: Recent Labs 05/14/23 0110 05/13/23 0115 05/12/23 0600 BILITOT 0.4 0.5 0.9 BILIDIR -- 0.3 -- ALBUMIN 3.6 3.0* 3.5 ALKPHOS 86 85 100 ALT 437* 903* 1,174* AST 319* 792* 1,435* No results found for: UPROTCREAT No results found for: TPROTEINPEP, ALBELECT No results found for: MICROALBUR, [id number] No results found for: HA1C Lab Results Component Value Date CALCIUM 8.5 05/14/2023 PHOS 4.7 (H) 05/08/2023 No results found for: 25OHVITD MICROBIOLOGY: ProcedureComponentValueUnitsDate/TimeUrine culture [[id number]]Collected: 05/11/231921Lab Status: Final resultSpecimen: Clean Catch UrineUpdated: [...] consulted for assessment if this patient needs GRAVEL INSPECTOR. Atthis time, we can likely hold off on GRAVEL INSPECTOR. Her volume status appears sufficient and her metabolic kanwal angements with mild acidosis is not too profound. Patient does not have significant uremic symptoms. We can hold off for today, but the patient is a high risk candidate for needing GRAVEL INSPECTOR in future daysespecially if her Cr curve trends the direction it is for the next several days. S/p Moeqj-pb-Hbvtz TF TAVR: Management per cardiology. On milrinone gtt. PLAN: - Please obtain following diagnostics: renal US, urinalysis, urine prot/Cr ratio, urine albumin/Cr ratio, CK, uric acid, serum osmol, daily VBGs - No acute indications for GRAVEL INSPECTOR/dialysis. We will keep close eye on Cr trend, volume status, and metabolics to ensure patient still does not need GRAVEL INSPECTOR as she ensues intrinsic renal recovery [...] M.H.Katherine., M.A. PGY-V Nephrology-Hypertension Fellow Page # [phone] [facility] [address] 2nd floor, Manager Leadership Development [address] [place] [address] * Care Management - Mario Alberto Olmos [...] for a TAVR at 730. Returned to [facility] at 0945. Was intubated in the clinical laboratory science professor due to agitation. Maintained bedrest for 5 [...] Operative Note Patient Name: Purnima Thacker : [id number] MR#: [id number] Case Date: 05/12/2023 Surgeon: Surgeon(s) and Role: [...] procedure Note: Patient Name: Purnima Thacker : [id number] MR#: [id number] Case Date: 05/12/2023 Operators Surgeon: Surgeon(s) and [...] main with 4.0 x 30 mm Resolute [place] Drug Eluting Stent Perclose x1 + Angio-seal 8 Fr x1, RFA Manual pressure, LFA Manual pressure, LFV Endotracheal intubation (performed by cardiac anesthesia) Preliminary findings: Successful right transfemoral TAVR Irraj-lv-Qbnyr with a 23 mm Lai 3 THV. [...] MD, M.Sc. Structural Heart Disease Fellow Pager :[phone] Antelmo Sharma MD Pager [phone] * Op Note - Alirio Hudson MD - 05/12/2023 7:37 AM EDT Preop Diagnosis: Severe aortic stenosis, symptomatic. Postop Diagnosis: Same. Procedure: Transfemoral TAVR procedure with 23mm valve. Surgeon: Alirio Hudson M.D. Millinery Copyist: Danny CULP Procedure: The patient was taken to the clinical laboratory science professor. The patient had monitored anesthesia care. 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 [facility] [place] [address] STRUCTURAL HEART DISEASE CONSULTATION NOTE PRIMARY CARE [...] who had been referred for possible TAVR rwihn-gr-iemgp evaluation. Her primary symptoms are of dyspnea [...] [facility]. 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 PROBLEM LIST: Patient Active Problem List Diagnosis Symptomatic severe aortic stenosis with low ejection fraction Mild coronary artery disease by [facility] 11/09/2022 Heart failure with reduced ejection fraction [...] blood, send to lab ([facility]) Result Value Ref [...] leads Confirmed by MD Harshil, Enrique Bell ([id number]) on 05/10/2023 8:11:46 AM Assessment and Plan: [...] alert Dr. Hudson of her inpatient status, [place] primary cardiac surgeon. Based on recent clinic [...] Antelmo Sharma MD Structural Heart Disease Pager [phone] * Plan of Care - Sarahi Nice RN - 05/10/2023 3:55 AM EDTSumavis: RN Note and Care Plan Sarahi Nice RN assumed care of pt at time of their arrival to room 362 from [facility]. Pt voices shortness of breath [...] VTE (Venous Thromboembolism) Risk Flowsheets (Taken 05/09/2023 0156) VTE Prevention/Management: anticoagulant therapy Intervention: Prevent Infection [...] listening utilized Taken 05/08/20231999 by Alivia Kauffman, photolithographic stripper/Support System Care: self-care encouraged support provided Problem: [...] from another hospital Location: admitted from [facility] Reason for Hospitalization: Critical aortic stenosis, [...] receiving care in [place] must abide by [place] law. The hierarchy [...] (i) The agent with financial power of city attorney or a conservator appointed in [...] none Home Address confirmed as: [address] [address] Social & Family Supports: All names listed [...] Type: *No Product type* / Secondary Insurance: [facility] [place] ONLY if patient has Medicare A&B - Does this patient have secondary insurance?: Yes ; Prescription Coverage: Yes Preferred Pharmacy: updated to [facility] Status: Patient is a : No Primary Care Provider confirmed: Magdalena Acosta MD [phone] Patient/Caregiver Goals of Treatment: Potential Needs for [...] transition of care planning. Alie Bradshaw RN, Pager-[phone] * Plan of Care - Emily Lucero RN - 05/08/2023 2:54 PM EDT OUTCOME EVALUATION NOTE: OUTCOME SUMMARY: Pt arrived from [facility]. A&O, no c/o pain or SOB. [...] EST Office Visit Hematology [place] [address] Markel Borjas MD [facility] [place] [address] 11/02/2024 12:00 PM EDT Appointment [place] [address] 11/02/2024 1:00 PM EDT Office [place] [address] Magdalena Peralta MD [facility] [place] [address] 03/01/2025 4:15 PM EDT Office Visit Dermatology at [place] [address] [place] [address] Marek Bonilla MD [address], [place] [address] Scheduled Referrals Name Type Priority Associated Diagnoses [...] Heart Cath W/Inj L Ventriculography, Img S&I (82140) 05/12/2023 7:37 AM EDT Aortic valve stenosis, [...] DOPP (07/08/2023 12:15 PM EST) EF 20 HEARTAsp[facility] SYSTEM Anatomical Region Laterality Modality Cardiac Other 07/08/2023 10:3 1 AM EST Narrative 07/08/2023 12:26 PM EST [address] [place] [address] ? Echocardiogram Report Name: PURNIMA THACKER ?Study Date: 07/08/2023 10:31 AMBP: 118/60 mmHg ? Patient Location: 4A : 1955 ? Height: 155 cm ? Account: [id number] Age: 67 yrs ? Weight: 74 kg Gender: Female ?BSA: 1.7 m2 Ordering Physician: ALIRIO HUDSON Referring Physician: VINOD JUÁREZ Performed By: Felicia Norris RDCS Reason For Study: S/P TAVR Exam Location: [facility]. Interpretation Summary Left ventricular systolic function is [...] no significant change (post-procedure). Procedure Limited - 55907. Doppler - 16551. Color Doppler - 20614. Satisfactory quality. This study is limited because [...] Note Lee Kincaid MD - 07/08/2023 [address] [place] [address] Echocardiogram Report Name: PURNIMA THACKER Study Date: 0:31 AMBP: 118/60 mmHg Patient Location: : 1955 Height: 155 cm Account: [id number] Age: 67 yrs Weight: 74 kg Gender: Female BSA: 1.7 m2 Ordering Physician: ALIRIO HUDSON Referring Physician: VINOD JUÁREZ Performed By: Felicia Norris RDCS Reason For Study: S/P TAVR Exam Location: [facility]. Interpretation Summary Left ventricular systolic function is [...] is nosignificant change (post-procedure). Procedure Limited - 14833. Doppler - 38877. Color Doppler - 66258. Satisfactoryquality. This study is limited because of [...] EST) Glucose 93 65 - 199 mg/dL [facility] Comment:Diabetes: >=200 mg/d L plus symptoms Blood Urea Nitrogen 19(H) 8 - 18 mg/dL [facility] Creatinine 0.81 0.70 - 1.20 mg/dL [facility] Sodium 142 135 - 145 mmol/L [facility] Potassium 3.8 3.5 - 5.0 mmol/L [facility] Comment: Please note: ??Patients with WBC >100,000 may have falsely elevated Potassium levels. ??For accurate Potassium quantification in these patients send serum separator tube (gold top) for subsequent determinations. ??Contact the Clinical Chemistry Laboratory if there are any questions. Chloride 104 98 - 107 mmol/L [facility] Carbon Dioxide 26 22 - 31 mmol/L [facility] Anion Gap 12 5 - 15 mmol/L [facility] Calcium 10.2 8.5 - 10.5 mg/dL [facility] Protein, Total 7.4 6.1 - 8.0 g/dL [facility] Albumin 4.1 3.2 - 5.2 g/dL [facility] Aspartate Aminotransferase 24 0 - 30 unit/L [facility] Alanine Aminotransferase 12 0 - 30 unit/L [facility] Alkaline Phosphatase 93 35 - 105 unit/L [facility] Bilirubin, Total 0.3 0.2 - 1.3 mg/dL [facility] Est Glomerular Filtration Rate 80 >=60 mL/min/1. 73 m?? [facility] Comment: This patient's estimated GFR [...] Lab Alirio Hudson MD CHEMISTRY ORDERABLE S [facility] [place] [address] * (ABNORMAL) Basic Metabolic Panel (non-fasting) (05/22/2023 3:57 AM EDT) Glucose 88 65 - 199 mg/dL [facility] Comment:Diabetes: >=200 mg/d L plus symptoms Blood Urea Nitrogen 21(H) 8 - 18 mg/dL [facility] Creatinine 0.69(L) 0.70 - 1.20 mg/dL [facility] Sodium 136 135 - 145 mmol/L [facility] Potassium 3.6 3.5 - 5.0 mmol/L [facility] Comment: Please note: ??Patients with WBC >100,000 may have falsely elevated Potassium levels. ??For accurate Potassium quantification in these patients send serum separator tube (gold top) for subsequent determinations. ??Contact the Clinical Chemistry Laboratory if there are any questions. Chloride 102 98 - 107 mmol/L [facility] Carbon Dioxide 23 22 - 31 mmol/L [facility] Anion Gap 11 5 - 15 mmol/L [facility] Calcium 8.6 8.5 - 10.5 mg/dL [facility] Est Glomerular Filtration Rate 95 >=60 mL/min/1. 73 m?? [facility] Comment: This patient's estimated GFR [...] Agency Comment Spec In Lab Mara Serrano GAS MANAGER CHEMISTRY ORDERABL ES [facility] [place] [address] * (ABNORMAL) Basic Metabolic Panel (non-fasting) (05/21/2023 5:06 AM EDT) Glucose 87 65 - 199 mg/dL [facility] Comment:Diabetes: >=200 mg/d L plus symptoms Blood Urea Nitrogen 25(H) 8 - 18 mg/dL [facility] Creatinine 0.84 0.70 - 1.20 mg/dL [facility] Sodium 136 135 - 145 mmol/L [facility] Potassium 3.6 3.5 - 5.0 mmol/L [facility] Comment: Please note: ??Patients with WBC >100,000 may have falsely elevated Potassium levels. ??For accurate Potassium quantification in these patients send serum separator tube (gold top) for subsequent determinations. ??Contact the Clinical Chemistry Laboratory if there are any questions. Chloride 102 98 - 107 mmol/L [facility] Carbon Dioxide 26 22 - 31 mmol/L [facility] Anion Gap 8 5 - 15 mmol/L [facility] Calcium 8.9 8.5 - 10.5 mg/dL [facility] Est Glomerular Filtration Rate 76 >=60 mL/min/1. 73 m?? [facility] Comment: This patient's estimated GFR [...] Narrative Resulting Agency Comment Spec In Lab [facility], [place] GAS MANAGER CHEMISTRY ORDERABL ES Performing Organization Address City/[facility]/ZIP Co de Phone Number [facility] [place] [address] * Lavender Tube HOLD (05/20/2023 2:52 AM EDT) Lavender Hold Sample in lab. [facility] Blood Venous Draw / Unknown 05/20/2023 2:52 AM EDT 05/20/2023 3:04 AM EDT [facility], [place] GAS MANAGER HEMATOLOGY ORDERAB LES Performing Organization Address City/[facility]/[place] [address] * (ABNORMAL) Basic Metabolic Panel (non-fasting) (05/20/2023 2:52 AM EDT) Glucose 152 65 - 199 mg/dL [facility] Comment:Diabetes: >=200 mg/d L plus symptoms Blood Urea Nitrogen 33(H) 8 - 18 mg/dL [facility] Creatinine 0.82 0.70 - 1.20 mg/dL [facility] Sodium 137 135 - 145 mmol/L [facility] Potassium 3.7 3.5 - 5.0 mmol/L [facility] Comment: Please note: ??Patients with WBC >100,000 may have falsely elevated Potassium levels. ??For accurate Potassium quantification in these patients send serum separator tube (gold top) for subsequent determinations. ??Contact the Clinical Chemistry Laboratory if there are any questions. Chloride 99 98 - 107 mmol/L [facility] Carbon Dioxide 22 22 - 31 mmol/L [facility] Anion Gap 16(H) 5 - 15 mmol/L [facility] Calcium 9.0 8.5 - 10.5 mg/dL [facility] Est Glomerular Filtration Rate 78 >=60 mL/min/1. 73 m?? [facility] Comment: This patient's estimated GFR [...] Lab Mara Serrano ANURAG CHEMISTRY ORDERABL ES [facility] [place] [place] [address] [place] [address] * (ABNORMAL) Potassium (05/20/2023 2:52 AM EDT) Potassium 3.4(L) 3.5 - 5.0 mmol/L [facility] Comment: Please note: ??Patients with WBC >100,000 may have falsely elevated Potassium levels. ??For accurate Potassium quantification in these patients send serum separator tube (gold top) for subsequent determinations. ??Contact the Clinical Chemistry Laboratory if there are any questions. Blood 05/20/2023 2:52 AM EDT 05/20/2023 3:03 AM EDT Narrative Resulting Agency Comment Spec In Lab Mara Serrano GAS MANAGER CHEMISTRY ORDERABL ES [facility] [place] [address] * XR Chest PA & Lateral (Generic) [...] have questions please contact the health care giver that requested your imaging first. [...] who have questions please contactthe health care giver that requested your imaging first. Electronically signed by: Chyna Johnson MD, [facility]([phone]), at 05/19/2023 2:19 PM Alirio Hudson MD IMG DX ORDERABLES * (ABNORMAL) Basic Metabolic Panel (non-fasting) (05/19/2023 5:49 AM EDT) Glucose 93 65 - 199 mg/dL [facility] Comment:Diabetes: >=200 mg/d L plus symptoms Blood Urea Nitrogen 45(H) 8 - 18 mg/dL [facility] Creatinine 1.02 0.70 - 1.20 mg/dL [facility] Sodium 138 135 - 145 mmol/L [facility] Potassium 3.9 3.5 - 5.0 mmol/L [facility] Comment: Please note: ??Patients with WBC >100,000 may have falsely elevated Potassium levels. ??For accurate Potassium quantification in these patients send serum separator tube (gold top) for subsequent determinations. ??Contact the Clinical Chemistry Laboratory if there are any questions. Chloride 102 98 - 107 mmol/L [facility] Carbon Dioxide 26 22 - 31 mmol/L [facility] Anion Gap 10 5 - 15 mmol/L [facility] Calcium 9.7 8.5 - 10.5 mg/dL [facility] Est Glomerular Filtration Rate 60 >=60 mL/min/1. 73 m?? [facility] Comment: This patient's estimated GFR [...] Lab Mara Maggie OSBORN CHEMISTRY ORDERABL ES Performing Organization Address City/State/[facility] Co de Phone Number [facility] [place] [address] * IR Chest Tube Placement Right (05/18/2023 [...] Kristopher Salgado MD 05/18/2023 Alirio Hudson MD [facility] [place] ORDERABLES * (ABNORMAL) Basic Metabolic Panel (non-fasting) (05/18/2023 2:54 AM EDT) Glucose 95 65 - 199 mg/dL [facility] Comment:Diabetes: >=200 mg/d L plus symptoms Blood Urea Nitrogen 71(H) 8 - 18 mg/dL [facility] Comment:result rechecked-[facility] Creatinine 1.64(H) 0.70 - 1.20 mg/dL [facility] Comment:result rechecked-[facility] Sodium 137 135 - 145 mmol/L [facility] Potassium 3.7 3.5 - 5.0 mmol/L [facility] Comment: Please note: ??Patients with WBC >100,000 may have falsely elevated Potassium levels. ??For accurate Potassium quantification in these patients send serum separator tube (gold top) for subsequent determinations. ??Contact the Clinical Chemistry Laboratory if there are any questions. Chloride 100 98 - 107 mmol/L [facility] Carbon Dioxide 24 22 - 31 mmol/L [facility] Anion Gap 13 5 - 15 mmol/L [facility] Calcium 9.7 8.5 - 10.5 mg/dL [facility] Est Glomerular Filtration Rate 34(L) >=60 mL/min/1. 73 m?? [facility] Comment: This patient's estimated GFR [...] Resulting Agency Comment Spec In Lab [facility] [place] [address] * XR Chest PA & Lateral (Generic) [...] have questions please contact the health care giver that requested your imaging first. ? Electronically signed by: Ghassan Reyes MD, [facility] ??([phone]), at 05/17/2023 11:46 AM Narrative 05/17/2023 11:46 [...] who have questions please contactthe health care giver that requested your imaging first. Electronically signed by: Ghassan Reyes MD, [facility]([phone]), at 05/17/2023 11:46 AM Alirio Hudson MD IMG DX ORDERABLES * (ABNORMAL) Comprehensive metabolic panel (non-fasting) (05/17/2023 4:35 AM EDT) Glucose 89 65 - 199 mg/dL [facility] Comment:Diabetes: >=200 mg/d L plus symptoms Blood Urea Nitrogen 97(H) 8 - 18 mg/dL [facility] Creatinine 2.97(H) 0.70 - 1.20 mg/dL [facility] Comment:result rechecked-JSJ Sodium 135 135 - 145 mmol/L [facility] Potassium 4.1 3.5 - 5.0 mmol/L [facility] Comment: Please note: ??Patients with WBC >100,000 may have falsely elevated Potassium levels. ??For accurate Potassium quantification in these patients send serum separator tube (gold top) for subsequent determinations. ??Contact the Clinical Chemistry Laboratory if there are any questions. Chloride 97(L) 98 - 107 mmol/L [facility] Carbon Dioxide 22 22 - 31 mmol/L [facility] Anion Gap 16(H) 5 - 15 mmol/L [facility] Calcium 9.6 8.5 - 10.5 mg/dL [facility] Protein, Total 6.5 6.1 - 8.0 g/dL [facility] Albumin 3.7 3.2 - 5.2 g/dL [facility] Aspartate Aminotransferase 58(H) 0 - 30 unit/L [facility] Alanine Aminotransferase 66(H) 0 - 30 unit/L [facility] Alkaline Phosphatase 86 35 - 105 unit/L [facility] Bilirubin, Total 0.6 0.2 - 1.3 mg/dL [facility] Est Glomerular Filtration Rate 17(L) >=60 mL/min/1. 73 m?? [facility] Comment: This patient's estimated GFR [...] S Performing Organization Address [facility] Co de Phone Number [facility] [place] [address] * Potassium (05/16/2023 11:15 PM EDT) Potassium 3.7 3.5 - 5.0 mmol/L [facility] Comment: Please note: ??Patients with [...] MD CHEMISTRY ORDERABLE S Performing Organization Address City/[facility] Co de Phone Number [facility] [place] [address] * Magnesium (05/16/2023 5:22 PM EDT) Magnesium 0.96 0.69 - 1.07 mmol/L [facility] Blood 05/16/2023 5:22 PM EDT 05/16/2023 5:27 PM EDT Narrative Resulting Agency Comment Spec In Lab Alirio Hudson MD CHEMISTRY ORDERABLE S Performing Organization Address City/[facility]/ZIP Co de Phone Number [facility] [place] [address] * (ABNORMAL) Basic Metabolic Panel (non-fasting) (05/16/2023 5:22 PM EDT) Glucose 106 65 - 199 mg/dL [facility] Comment:Diabetes: >=200 mg/d L plus symptoms Blood Urea Nitrogen 103(H) 8 - 18 mg/dL [facility] Creatinine 3.91(H) 0.70 - 1.20 mg/dL [facility] Comment:result rechecked-imm Sodium 132(L) 135 - 145 mmol/L [facility] Potassium 3.6 3.5 - 5.0 mmol/L [facility] Comment: Please note: ??Patients with WBC >100,000 may have falsely elevated Potassium levels. ??For accurate Potassium quantification in these patients send serum separator tube (gold top) for subsequent determinations. ??Contact the Clinical Chemistry Laboratory if there are any questions. Chloride 92(L) 98 - 107 mmol/L [facility] Carbon Dioxide 22 22 - 31 mmol/L [facility] Anion Gap 18(H) 5 - 15 mmol/L [facility] Calcium 9.7 8.5 - 10.5 mg/dL [facility] Est Glomerular Filtration Rate 12(L) >=60 mL/min/1. 73 m?? [facility] Comment: This patient's estimated GFR [...] Lab Alirio Hudson MD CHEMISTRY ORDERABLE S [facility] [place] [address] * (ABNORMAL) Potassium (05/16/2023 11:43 AM EDT) Potassium 3.3(L) 3.5 - 5.0 mmol/L [facility] Comment: Please note: ??Patients with [...] MD CHEMISTRY ORDERABLE S Performing Organization Address City/[facility]/ZIP Co de Phone Number [facility] [place] [address] * (ABNORMAL) Ferritin (05/16/2023 4:41 AM EDT) Ferritin 1,813(H) 30 - 400 ng/mL [facility] Comment: Pediatric reference ranges not verified at [facility] interpret with caution. Reference ranges for females greater than 50 years of age approach values for men, i.e., 30-400 ng/mL. Blood 05/16/2023 4:41 AM EDT 05/16/2023 4:54 AM EDT Narrative Resulting Agency Comment Spec In Lab Kristopher Ayoub MD CHEMISTRY ORDERABLES [facility] [place] [address] * (ABNORMAL) PTH (05/16/2023 4:41 AM EDT) Parathyroid Hormone 120(H) 15 - 65 pg/mL [facility] Blood 05/16/2023 4:41 AM EDT 05/16/2023 4:54 AM EDT Narrative Resulting Agency Comment Spec In Lab Kristopher Ayoub MD CHEMISTRY ORDERABLES [facility] [place] [address] * Vitamin D, 25-Hydroxy (05/16/2023 4:41 AM EDT) Vitamin D Total 25 OH 33 21 - 100 ng/mL [facility] Vit D Interp Sufficient [facility] Blood 05/16/2023 4:41 AM EDT 05/16/2023 4:54 AM EDT Narrative Resulting Agency Comment Spec In Lab Kristopher Ayoub MD CHEMISTRY ORDERABLES Performing Organization Address City/[facility]/ZIP Co de Phone Number [facility] [place] [address] * (ABNORMAL) Blood Gas Venous ([facility]) (05/16/2023 4:22 AM EDT) pH, Venous 7.41 7.32 - 7.42 [facility] PCO2, Venous 32(L) 41 - 51 mmHg [facility] PO2, Venous 73(H) 25 - 40 mmHg [facility] Bicarbonate, Venous 19.6 mmol/L [facility] Base Excess, Venous -5.1 mmol/L [facility] Hgb Blood Gas 9.7(L) 11.7 - 15.5 g/dL [facility] Oxyhemoglobin, Venous 92.8 % [facility] Carboxyhemoglob in, Venous 0.1 % [facility] Comment: Nonsmokers: 0.5-1.5% COHB Smokers: Variable, but usually less than 10% Toxic: 20-30% COHB Lethal: Greater than 60% COHB Methemoglobin, Venous 0.3 <=1.5 % [facility] Na Whole Blood 130(L) 135 - 145 mmol/L [facility] K Whole Blood 3.7 3.5 - 5.0 mmol/L [facility] Comment: Please note: Patients with WBC >100,000 may have falsely elevated Potassium levels. Contact the Clinical Chemistry Laboratory if there are any questions. ICa Whole Blood 1.15 1.15 - 1.33 mmol/L [facility] Comment: Note: ??Total bilirubin higher than 20 mg/dL may lead to falsely low ionized calcium. CL Whole Blood 95(L) 98 - 107 mmol/L [facility] Gluc Whole Bld 82 65 - 199 mg/dL [facility] Comment:Diabetes: >=200 mg/d L plus symptoms Lactate WB 1.1 0.5 - 2.2 mmol/L [facility] Blood Gas Source Venous [facility] Blood Venous Draw / Unknown 05/16/2023 4:22 AM EDT 05/16/2023 4:31 AM EDT Narrative Resulting Agency Comment Spec In Lab Bonita TOBAR CHEMISTRY ORDERABLES [facility] [place] [address] * (ABNORMAL) Differential, Automated (05/16/2023 4:20 AM EDT) Neutrophil % 84.1 % [facility] Neutrophil Absolute 6.22(H) 1.70 - 6.10 x10(3)/mc L [facility] Lymph % 5.8 % [facility] Lymphocytes Abs 0.4(L) 0.9 - 3.2 x10(3)/mc L [facility] Monocyte % 8.8 % [facility] Monocyte Abs 0.6 0.3 - 0.9 x10(3)/mc L [facility] Eos % 0.4 % [facility] Eosinophils Abs 0.0 0.0 - 0.4 x10(3)/mc L [facility] Basophil % 0.0 % [facility] Baso Absolute 0.0 0.0 - 0.1 x10(3)/mc L [facility] Immature Gran % 0.90 % [facility] Comment: Immature granulocytes(IG's)percentage and absolute count will include metamyelocytes, myelocytes, and promyelocytes. Blood smears from CBCs yielding IG's will be scanned manually for concordance. If this scan disagrees with the automated IG or if promyelocytes are noted, a manual differential will be performed. Immature Gran Absolute 0.07(H) 0.00 - 0.04 x10(3)/mc L [facility] Blood 05/16/2023 4:20 AM EDT 05/16/2023 4:29 AM EDT Narrative Resulting Agency Comment Spec In Lab James Agustin MD HEMATOLOGY ORDER JODIE [facility] [place] [address] * (ABNORMAL) Hemogram (05/16/2023 4:20 AM EDT) White Blood Cell 7.4 4.0 - 9.5 x10(3)/mc L [facility] Red Blood Cell 2.40(L) 4.00 - 5.21 x10(6)/mc L [facility] Hemoglobin 7.8(L) 11.7 - 15.5 g/dL [facility] Hematocrit 22.5(L) 35.7 - 45.8 % [facility] Mean Cell Volume 93.8 82.6 - 94.4 fL [facility] Mean Cell Hemoglobin 32.5(H) 27.1 - 32.0 pg [facility] Mean Cell Hemoglobin Concentration 34.7 31.7 - 35.0 g/dL [facility] Platelet 120(L) 145 - 357 x10(3)/mc L [facility] RDW Standard Deviation 42.9 37.0 - 46.0 fL [facility] RDW coefficient of variation 12.9 11.5 - 14.1 % [facility] Mean Platelet Volume 11.3 7.6 - 12.9 fL [facility] NRBC% auto 0.7 % [facility] NRBC Absolute 0.050(H) 0.000 - 0.000 x10(3)/mc L [facility] Blood 05/16/2023 4:20 AM EDT 05/16/2023 4:29 AM EDT Narrative Resulting Agency Comment Spec In Lab James Agustin MD HEMATOLOGY ORDER JODIE Performing Organization Address City/[facility]/ZIP Co de Phone Number [facility] [place] [address] * (ABNORMAL) Basic Metabolic Panel (non-fasting) (05/16/2023 4:20 AM EDT) Glucose 89 65 - 199 mg/dL [facility] Comment:Diabetes: >=200 mg/d L plus symptoms Blood Urea Nitrogen 108(H) 8 - 18 mg/dL [facility] Creatinine 4.74(H) 0.70 - 1.20 mg/dL [facility] Comment:result rechecked-OLIV[facility] Sodium 132(L) 135 - 145 mmol/L [facility] Potassium 3.9 3.5 - 5.0 mmol/L [facility] Comment: Please note: ??Patients with WBC >100,000 may have falsely elevated Potassium levels. ??For accurate Potassium quantification in these patients send serum separator tube (gold top) for subsequent determinations. ??Contact the Clinical Chemistry Laboratory if there are any questions. Chloride 95(L) 98 - 107 mmol/L [facility] Carbon Dioxide 18(L) 22 - 31 mmol/L [facility] Anion Gap 19(H) 5 - 15 mmol/L [facility] Calcium 9.2 8.5 - 10.5 mg/dL [facility] Est Glomerular Filtration Rate 10(L) >=60 mL/min/1. 73 m?? [facility] Comment: This patient's estimated GFR [...] Lab Alirio Hudson MD CHEMISTRY ORDERABLE S [facility] [place] [address] * (ABNORMAL) Iron and TIBC (05/16/2023 4:20 AM EDT) Iron 31 30 - 150 mcg/dL [facility] TIBC 259 250 - 450 mcg/dL [facility] Iron Saturation 12(L) 20 - 50 % [facility] Blood 05/16/2023 4:20 AM EDT 05/16/2023 4:29 AM EDT Narrative Resulting Agency Comment Spec In Lab Kristopher Ayoub MD CHEMISTRY ORDERABLES [facility] [place] [address] * (ABNORMAL) Basic Metabolic Panel (non-fasting) (05/15/2023 12:50 AM EDT) Glucose 101 65 - 199 mg/dL [facility] Comment:Diabetes: >=200 mg/d L plus symptoms Blood Urea Nitrogen 109(H) 8 - 18 mg/dL [facility] Creatinine 5.62(H) 0.70 - 1.20 mg/dL [facility] Comment:result rechecked-KS Sodium 131(L) 135 - 145 mmol/L [facility] Comment:result rechecked-KS Potassium 3.7 3.5 - 5.0 mmol/L [facility] Comment: result rechecked-KS Please note: ??Patients with WBC >100,000 may have falsely elevated Potassium levels. ??For accurate Potassium quantification in these patients send serum separator tube (gold top) for subsequent determinations. ??Contact the Clinical Chemistry Laboratory if there are any questions. Chloride 92(L) 98 - 107 mmol/L [facility] Comment:result rechecked-[place] Carbon Dioxide 18(L) 22 - 31 mmol/L [facility] Comment:result rechecked-[place] Anion Gap 21(H) 5 - 15 mmol/L [facility] Calcium 8.9 8.5 - 10.5 mg/dL [facility] Est Glomerular Filtration Rate 8(L) >=60 mL/min/1. 73 m?? [facility] Comment: This patient's estimated GFR [...] Lab Alirio Hudson MD CHEMISTRY ORDERABLE S [facility] [place] [address] * (ABNORMAL) Hemogram (05/15/2023 12:50 AM EDT) White Blood Cell 9.1 4.0 - 9.5 x10(3)/mc L [facility] Red Blood Cell 2.19(L) 4.00 - 5.21 x10(6)/mc L [facility] Hemoglobin 7.2(L) 11.7 - 15.5 g/dL [facility] Hematocrit 20.6(L) 35.7 - 45.8 % [facility] Mean Cell Volume 94.1 82.6 - 94.4 fL [facility] Mean Cell Hemoglobin 32.9(H) 27.1 - 32.0 pg [facility] Mean Cell Hemoglobin Concentration 35.0 31.7 - 35.0 g/dL [facility] Platelet 109(L) 145 - 357 x10(3)/mc L [facility] RDW Standard Deviation 43.6 37.0 - 46.0 fL [facility] RDW coefficient of variation 12.9 11.5 - 14.1 % [facility] Mean Platelet Volume 10.4 7.6 - 12.9 fL [facility] NRBC% auto 2.1 % [facility] NRBC Absolute 0.190(H) 0.000 - 0.000 x10(3)/mc L [facility] Blood 05/15/2023 12:5 0 AM EDT 05/15/2023 12:52 AM EDT Narrative Resulting Agency Comment Spec In Lab Alirio Hudson MD HEMATOLOGY ORDERABL ES [facility] [address] [place] [address] * (ABNORMAL) BLOOD GAS 2 VENOUS (05/15/2023 12:49 AM EDT) pH, Venous 7.33 7.32 - 7.42 [facility] PCO2, Venous 37(L) 41 - 51 mmHg [facility] PO2, Venous 34 25 - 40 mmHg [facility] Bicarbonate, Venous 19.1 mmol/L [facility] Base Excess, Venous -6.8 mmol/L [facility] Hgb Blood Gas 10.8(L) 11.7 - 15.5 g/dL [facility] Oxyhemoglobin, Venous 58.1 % [facility] Carboxyhemoglob in, Venous 0.3 % [facility] Comment: Nonsmokers: 0.5-1.5% COHB Smokers: Variable, but usually less than 10% Toxic: 20-30% COHB Lethal: Greater than 60% COHB Methemoglobin, Venous 0.6 <=1.5 % [facility] Na Whole Blood 136 135 - 145 mmol/L [facility] K Whole Blood 3.7 3.5 - 5.0 mmol/L [facility] Comment: Please note: Patients with WBC >100,000 may have falsely elevated Potassium levels. Contact the Clinical Chemistry Laboratory if there are any questions. ICa Whole Blood 1.12(L) 1.15 - 1.33 mmol/L [facility] Comment: Note: ??Total bilirubin higher than 20 mg/dL may lead to falsely low ionized calcium. CL Whole Blood 95(L) 98 - 107 mmol/L [facility] Gluc Whole Bld 101 65 - 199 mg/dL [facility] Comment:Diabetes: >=200 mg/d L plus symptoms Lactate WB 1.3 0.5 - 2.2 mmol/L [facility] Flow, Mike 1.0 LPM [facility] Blood Gas Source Venous [facility] Blood 05/15/2023 12:4 9 AM EDT 05/15/2023 12:49 AM EDT Alirio Hudson MD POINT OF CARE TEST ORDERABLES [facility] [place] [address] * US Retroperitoneal Complete (05/14/2023 3:53 PM [...] PM Electronically signed by: Hayden Robledo MD, [facility] ([phone]), at 05/14/2023 4:32 PM Thank you for letting us participate in the care of this patient. If you are a health care provider and have any questions regarding this report, please contact the number above. For patients who have questions, please contact the health care giver that requested your imaging first. ? Hayden Robledo, Staff Physician Electronically Signed Final Report ?? 05/14/2023 04:39 pm Narrative 05/14/2023 4:39 PM EDT Renal ? (Signed Final 05/14/2023 04:39 pm) PATIENT INFO: ID #: ? [id number] ?: ??[birth year] (67 yrs)(F) Name: ? PURNIMA THACKER ?Visit Date: 05/14/2023 03:44 pm PERFORMED BY: Attending: ?Meena CULP, Hayden Stafford Resident: ? Nell CULP, Anand August Performed By: ? Consuelo Tello RDMS Referred By: ?ALIRIO HUDSON Location: ? [place] SERVICE(S) PROVIDED: URETRO - Retroperitoneal Complete - [id number] ? [id number] INDICATIONS: EVANS COMPARISON: CT: Abdomen/Pelvis 05/11/23 RIGHT [...] 05/14/2023 04:39 pm) PATIENT INFO: ID #: [id number] : [birth year] (67 yrs)(F) Name: PURNIMA THACKER Visit Date: 05/14/2023 03:44 pm PERFORMED BY: Attending: Meena CULP, Hayden Stafford Resident: Anand Camejo MD Performed By: Consuelo Tello RDMS Referred By: ALIRIO HUDSON Location: [place] SERVICE(S) PROVIDED: URETRO - Retroperitoneal Complete - [id number] INDICATIONS: EVANS COMPARISON: CT: Abdomen/Pelvis 05/11/23 RIGHT [...] PM Electronically signed by: Hayden Robledo MD, [facility] ([phone]), at 05/14/2023 4:32 PM Thank you for letting us participate in the care of this patient. If you are a health care provider and have any questions regarding this report, please contact the number above. For patients who have questions, please contact the health care giver that requested your imaging first. Hayden Robledo, Staff Physician Electronically Signed Final Report 05/14/2023 04:39 pm Alirio Hudson MD IMG US GEN ORDERABL ES * CK (05/14/2023 3:17 PM EDT) Pathologist [facility] Creatine Kinase 123 0 - 160 unit/L [facility] Blood 05/14/2023 3:17 PM EDT 05/14/2023 3:31 PM EDT Narrative Resulting Agency Comment Spec In Lab Alirio Hudson MD CHEMISTRY ORDERABLE S [facility] [place] [address] * (ABNORMAL) Uric acid (05/14/2023 3:17 PM EDT) Pathologist [facility] Uric Acid 14.9(H) 2.5 - 6.5 mg/dL [facility] Blood 05/14/2023 3:17 PM EDT 05/14/2023 3:31 PM EDT Narrative Resulting Agency Comment Spec In Lab Alirio Hudson MD CHEMISTRY ORDERABLE S Performing Organization Address City/[facility] Co de Phone Number [facility] [place] [address] * (ABNORMAL) Osmolality (05/14/2023 3:17 PM EDT) Osmolality 311(H) 275 - 295 mOsm/kg [facility] Blood 05/14/2023 3:17 PM EDT 05/14/2023 3:31 PM EDT Narrative Resulting Agency Comment Spec In Lab Alirio Hudson MD CHEMISTRY ORDERABLE S Performing Organization Address [facility] de Phone Number [facility] [place] [address] * (ABNORMAL) Differential, Automated (05/14/2023 1:10 AM EDT) Neutrophil % 87.2 % [facility] Neutrophil Absolute 9.74(H) 1.70 - 6.10 x10(3)/mc L [facility] Lymph % 3.9 % [facility] Lymphocytes Abs 0.4(L) 0.9 - 3.2 x10(3)/mc L [facility] Monocyte % 7.9 % [facility] Monocyte Abs 0.9 0.3 - 0.9 x10(3)/mc L [facility] Eos % 0.0 % [facility] Eosinophils Abs 0.0 0.0 - 0.4 x10(3)/mc L [facility] Basophil % 0.1 % [facility] Baso Absolute 0.0 0.0 - 0.1 x10(3)/mc L [facility] Immature Gran % 0.90 % [facility] Comment: Immature granulocytes(IG's)percentage and absolute count will include metamyelocytes, myelocytes, and promyelocytes. Blood smears from CBCs yielding IG's will be scanned manually for concordance. If this scan disagrees with the automated IG or if promyelocytes are noted, a manual differential will be performed. Immature Gran Absolute 0.10(H) 0.00 - 0.04 x10(3)/mc L [facility] Blood 05/14/2023 1:10 AM EDT 05/14/2023 1:24 AM EDT Narrative Resulting Agency Comment Spec In Lab Bonita TOBAR HEMATOLOGY ORDERABLE S [facility] [place] [address] * (ABNORMAL) Hemogram (05/14/2023 1:10 AM EDT) White Blood Cell 11.2(H) 4.0 - 9.5 x10(3)/mc L [facility] Red Blood Cell 2.19(L) 4.00 - 5.21 x10(6)/mc L [facility] Hemoglobin 7.2(L) 11.7 - 15.5 g/dL [facility] Hematocrit 20.3(L) 35.7 - 45.8 % [facility] Mean Cell Volume 92.7 82.6 - 94.4 fL [facility] Mean Cell Hemoglobin 32.9(H) 27.1 - 32.0 pg [facility] Mean Cell Hemoglobin Concentration 35.5(H) 31.7 - 35.0 g/dL [facility] Platelet 112(L) 145 - 357 x10(3)/mc L [facility] RDW Standard Deviation 41.4 37.0 - 46.0 fL [facility] RDW coefficient of variation 12.5 11.5 - 14.1 % [facility] Mean Platelet Volume 10.4 7.6 - 12.9 fL [facility] NRBC% auto 1.5 % [facility] NRBC Absolute 0.170(H) 0.000 - 0.000 x10(3)/mc L [facility] Blood 05/14/2023 1:10 AM EDT 05/14/2023 1:24 AM EDT Narrative Resulting Agency Comment Spec In Lab Bonita TOBAR HEMATOLOGY ORDERABLE S [facility] [place] [address] * (ABNORMAL) Comprehensive metabolic panel (non-fasting) (05/14/2023 1:10 AM EDT) Glucose 120 65 - 199 mg/dL [facility] Comment:Diabetes: >=200 mg/d L plus symptoms Blood Urea Nitrogen 98(H) 8 - 18 mg/dL [facility] Creatinine 4.80(H) 0.70 - 1.20 mg/dL [facility] Comment:result rechecked-ssc Sodium 132(L) 135 - 145 mmol/L [facility] Potassium 4.1 3.5 - 5.0 mmol/L [facility] Comment: Please note: ??Patients with WBC >100,000 may have falsely elevated Potassium levels. ??For accurate Potassium quantification in these patients send serum separator tube (gold top) for subsequent determinations. ??Contact the Clinical Chemistry Laboratory if there are any questions. Chloride 94(L) 98 - 107 mmol/L [facility] Carbon Dioxide 18(L) 22 - 31 mmol/L [facility] Anion Gap 20(H) 5 - 15 mmol/L [facility] Calcium 8.5 8.5 - 10.5 mg/dL [facility] Protein, Total 5.8(L) 6.1 - 8.0 g/dL [facility] Albumin 3.6 3.2 - 5.2 g/dL [facility] Aspartate Aminotransferase 319(H) 0 - 30 unit/L [facility] Alanine Aminotransferase 437(H) 0 - 30 unit/L [facility] Alkaline Phosphatase 86 35 - 105 unit/L [facility] Bilirubin, Total 0.4 0.2 - 1.3 mg/dL [facility] Est Glomerular Filtration Rate 9(L) >=60 mL/min/1. 73 m?? [facility] Comment: This patient's estimated GFR [...] S Performing Organization Address [facility] de Phone Number [facility] [place] [address] * APTT (05/13/2023 10:15 AM EDT) Partial Thromboplastin Time 27 25 - 37 sec [facility] Comment: The PTT is NOT [...] ES Performing Organization Address [facility] Co de Phone Number [facility] [place] [address] * (ABNORMAL) Prothrombin Time (05/13/2023 10:15 AM EDT) Prothrombin Time 14.6(H) 9.4 - 12.5 sec [facility] International Normalization Ratio 1.3 [facility] Comment: An INR <2.0 indicates [...] MD HEMATOLOGY ORDERABL ES Performing Organization Address City/[facility]/ZIP Co de Phone Number [facility] [place] [address] * EKG 12 Lead (05/13/2023 9:22 AM EDT) Ventricular rate 92 BPM MUSE SYSTEM Atrial Rate 92 BPM MUSE SYSTEM P-R Interval 140 ms MUSE SYSTEM QRS Duration 104 ms MUSE SYSTEM Q-T Interval 384 ms MUSE SYSTEM QTC Calculated (Bezet) 474 ms MUSE SYSTEM Calculated P [place] 33 degrees MUSE SYSTEM Calculated R [place] 41 degrees MUSE SYSTEM Calculated T [place] -35 degrees MUSE SYSTEM INTERPRETATION Sinus rhythm with frequent Premature ventricular complexes Septal infarct , age undetermined ST & T wave abnormality, consider lateral ischemia Abnormal ECG When compared with ECG of 12-MAY-2023 10:10, Premature ventricular complexes are now Present I personally reviewed the tracing and edited the fellows interpretation Confirmed by fellow MD Anitha, [facility] ([id number]) on 05/13/2023 3:25:30 PM Confirmed by Maxx Best ([id number]) on 05/13/2023 8:30:56 PM MUSE SYSTEM 05/13/2023 9:22 AM EDT 05/13/2023 8:30 PM EDT Alirio Hudson MD ECG ORDERABLES Performing Organization Address City/[facility]/ZIP Co de Phone Number MUSE SYSTEM * (ABNORMAL) Differential, Automated (05/13/2023 1:15 AM EDT) Neutrophil % 88.1 % [facility] Neutrophil Absolute 7.62(H) 1.70 - 6.10 x10(3)/mc L [facility] Lymph % 3.1 % [facility] Lymphocytes Abs 0.3(L) 0.9 - 3.2 x10(3)/mc L [facility] Monocyte % 7.9 % [facility] Monocyte Abs 0.7 0.3 - 0.9 x10(3)/mc L [facility] Eos % 0.0 % [facility] Eosinophils Abs 0.0 0.0 - 0.4 x10(3)/mc L [facility] Basophil % 0.1 % [facility] Baso Absolute 0.0 0.0 - 0.1 x10(3)/ L [facility] Immature Gran % 0.80 % [facility] Comment: Immature granulocytes(IG's)percentage and absolute count will include metamyelocytes, myelocytes, and promyelocytes. Blood smears from CBCs yielding IG's will be scanned manually for concordance. If this scan disagrees with the automated IG or if promyelocytes are noted, a manual differential will be performed. Immature Gran Absolute 0.07(H) 0.00 - 0.04 x10(3)/ L [facility] Blood 05/13/2023 1:15 AM EDT 05/13/2023 1:29 AM EDT Narrative Resulting Agency Comment Spec In Lab Lorri TOBAR HEMATOLOGY ORDERABLE S Performing Organization Address City/State/[facility] Co de Phone Number [facility] [place] [address] * (ABNORMAL) Hemogram (05/13/2023 1:15 AM EDT) White Blood Cell 8.6 4.0 - 9.5 x10(3)/mc L [facility] Red Blood Cell 2.37(L) 4.00 - 5.21 x10(6)/ L [facility] Hemoglobin 7.8(L) 11.7 - 15.5 g/dL [facility] Hematocrit 22.2(L) 35.7 - 45.8 % [facility] Mean Cell Volume 93.7 82.6 - 94.4 fL [facility] Mean Cell Hemoglobin 32.9(H) 27.1 - 32.0 pg [facility] Mean Cell Hemoglobin Concentration 35.1(H) 31.7 - 35.0 g/dL [facility] Platelet 130(L) 145 - 357 x10(3)/mc L [facility] RDW Standard Deviation 41.7 37.0 - 46.0 fL [facility] RDW coefficient of variation 12.5 11.5 - 14.1 % [facility] Mean Platelet Volume 10.2 7.6 - 12.9 fL [facility] NRBC% auto 0.5 % [facility] NRBC Absolute 0.040(H) 0.000 - 0.000 x10(3)/mc L [facility] Blood 05/13/2023 1:15 AM EDT 05/13/2023 1:29 AM EDT Narrative Resulting Agency Comment Spec In Lab Lorri TOBAR HEMATOLOGY ORDERABLE S Performing Organization Address City/[facility] Co de Phone Number [facility] [place] [address] * (ABNORMAL) Hepatic Function Panel (05/13/2023 1:15 AM EDT) Protein, Total 5.5(L) 6.1 - 8.0 g/dL [facility] Albumin 3.0(L) 3.2 - 5.2 g/dL [facility] Aspartate Aminotransferase 792(H) 0 - 30 unit/L [facility] Alanine Aminotransferase 903(H) 0 - 30 unit/L [facility] Alkaline Phosphatase 85 35 - 105 unit/L [facility] Bilirubin, Total 0.5 0.2 - 1.3 mg/dL [facility] Bilirubin, Direct 0.3 0.0 - 0.3 mg/dL [facility] Blood 05/13/2023 1:15 AM EDT 05/13/2023 1:29 AM EDT Narrative Resulting Agency Comment Spec In Lab Alirio Hudson MD CHEMISTRY ORDERABLE S Performing Organization Address City/[facility]/ZIP Co de Phone Number [facility] [place] [address] * (ABNORMAL) Basic Metabolic Panel (non-fasting) (05/13/2023 1:15 AM EDT) Glucose 107 65 - 199 mg/dL [facility] Comment:Diabetes: >=200 mg/d L plus symptoms Blood Urea Nitrogen 82(H) 8 - 18 mg/dL [facility] Creatinine 3.15(H) 0.70 - 1.20 mg/dL [facility] Comment:result rechecked-JSJ Sodium 132(L) 135 - 145 mmol/L [facility] Potassium 3.8 3.5 - 5.0 mmol/L [facility] Comment: Please note: ??Patients with WBC >100,000 may have falsely elevated Potassium levels. ??For accurate Potassium quantification in these patients send serum separator tube (gold top) for subsequent determinations. ??Contact the Clinical Chemistry Laboratory if there are any questions. Chloride 95(L) 98 - 107 mmol/L [facility] Carbon Dioxide 20(L) 22 - 31 mmol/L [facility] Anion Gap 17(H) 5 - 15 mmol/L [facility] Calcium 8.3(L) 8.5 - 10.5 mg/dL [facility] Est Glomerular Filtration Rate 16(L) >=60 mL/min/1. 73 m?? [facility] Comment: This patient's estimated GFR [...] Lab Alirio Hudson MD CHEMISTRY ORDERABLE S [facility] [place] [address] * (ABNORMAL) BLOOD GAS 2 ARTERIAL (05/12/2023 3:57 PM EDT) pH, Arterial 7.39 7.35 - 7.45 [facility] PCO2, Arterial 33(L) 35 - 45 mmHg [facility] PO2, Arterial 101 85 - 104 mmHg [facility] Bicarbonate, Arterial 19.5(L) 20.0 - 26.0 mmol/L [facility] Base Excess, Arterial -5.5(L) -3.0 - 3.0 mmol/L [facility] Hgb Blood Gas 9.8(L) 11.7 - 15.5 g/dL [facility] Oxyhemoglobin, Arterial 95.2 94.0 - 97.0 % [facility] Carboxyhemoglob in, Arterial 0.2 % [facility] Comment: Nonsmokers: 0.5-1.5% COHB Smokers: Variable, but usually less than 10% Toxic: 20-30% COHB Lethal: Greater than 60% COHB Methemoglobin, Arterial 0.8 <=1.5 % [facility] Na Whole Blood 129(L) 135 - 145 mmol/L [facility] K Whole Blood 3.8 3.5 - 5.0 mmol/L [facility] Comment: Please note: Patients with WBC >100,000 may have falsely elevated Potassium levels. Contact the Clinical Chemistry Laboratory if there are any questions. ICa Whole Blood 1.05(L) 1.15 - 1.33 mmol/L [facility] Comment: Note: ??Total bilirubin higher than 20 mg/dL may lead to falsely low ionized calcium. CL Whole Blood 96(L) 98 - 107 mmol/L [facility] Gluc Whole Bld 178 65 - 199 mg/dL [facility] Comment:Diabetes: >=200 mg/d L plus symptoms. Lactate WB 1.5 0.5 - 2.2 mmol/L [facility] FIO2 Art 40 % [facility] PF Ratio Art 252 [facility] Blood 05/12/2023 3:57 PM EDT 05/12/2023 3:57 PM EDT Alirio Hudson MD POINT OF CARE TEST ORDERABLES [facility] [place] [address] * (ABNORMAL) Coox2 (05/12/2023 2:25 PM EDT) pO2, Coox 37 mmHg [facility] Hgb Blood Gas 9.5(L) 11.7 - 15.5 g/dL [facility] Oxyhemoglobin, Coox 59.9 % [facility] Carboxyhemoglo bin, Coox 0.3 % [facility] Comment: Nonsmokers: 0.5-1.5% COHB Smokers: Variable, but usually less than 10% Toxic: 20-30% COHB Lethal: Greater than 60% COHB Methemoglobin, Coox 0.7 <=1.5 % [facility] Source Coox Mixed Venous [facility] Blood 05/12/2023 2:25 PM EDT 05/12/2023 2:25 PM EDT Alirio Hudson MD POINT OF CARE TEST ORDERABLES [facility] [place] [address] * (ABNORMAL) BLOOD GAS 2 ARTERIAL (05/12/2023 2:23 PM EDT) pH, Arterial 7.37 7.35 - 7.45 [facility] PCO2, Arterial 36 35 - 45 mmHg [facility] PO2, Arterial 102 85 - 104 mmHg [facility] Bicarbonate, Arterial 20.4 20.0 - 26.0 mmol/L [facility] Base Excess, Arterial -4.8(L) -3.0 - 3.0 mmol/L [facility] Hgb Blood Gas 12.7 11.7 - 15.5 g/dL [facility] Oxyhemoglobin, Arterial 95.4 94.0 - 97.0 % [facility] Carboxyhemoglob in, Arterial 0.3 % [facility] Comment: Nonsmokers: 0.5-1.5% COHB Smokers: Variable, but usually less than 10% Toxic: 20-30% COHB Lethal: Greater than 60% COHB Methemoglobin, Arterial 0.7 <=1.5 % [facility] Na Whole Blood 129(L) 135 - 145 mmol/L [facility] K Whole Blood 3.7 3.5 - 5.0 mmol/L [facility] Comment: Please note: Patients with WBC >100,000 may have falsely elevated Potassium levels. Contact the Clinical Chemistry Laboratory if there are any questions. ICa Whole Blood 1.05(L) 1.15 - 1.33 mmol/L [facility] Comment: Note: ??Total bilirubin higher than 20 mg/dL may lead to falsely low ionized calcium. CL Whole Blood 95(L) 98 - 107 mmol/L [facility] Gluc Whole Bld 168 65 - 199 mg/dL [facility] Comment:Diabetes: >=200 mg/d L plus symptoms. Lactate WB 1.8 0.5 - 2.2 mmol/L [facility] FIO2 Art 40 % [facility] PF Ratio Art 255 [facility] Blood 05/12/2023 2:23 PM EDT 05/12/2023 2:23 PM EDT Alirio Hudson MD POINT OF CARE TEST ORDERABLES [facility] [place] [address] * (ABNORMAL) Troponin (05/12/2023 2:05 PM EDT) Troponin-T, High Sensitivity 1,022(H) <=14 ng/L [facility] Comment: This patient's troponin T [...] can be found in the [facility] Test Catalog Troponin - [facility] Test Catalog Reference: Fourth [place] Definition of Myocardial Infarction. Journal of the [place] [employer] 2018;72:2576-5629 Blood 05/12/2023 2:05 PM EDT 05/12/2023 2:14 PM EDT Narrative Resulting Agency Comment Spec In Lab Alirio Hudson MD CHEMISTRY ORDERABLE S Performing Organization Address [facility]/ZIP Co de Phone Number [facility] [place] [address] * (ABNORMAL) Hemoglobin (05/12/2023 2:05 PM EDT) Hemoglobin 8.5(L) 11.7 - 15.5 g/dL [facility] Blood 05/12/2023 2:05 PM EDT 05/12/2023 2:14 PM EDT Narrative Resulting Agency Comment Spec In Lab Alirio Hudson MD HEMATOLOGY ORDERABL ES Performing Organization Address [facility] Co de Phone Number [facility] [place] [address] * Potassium (05/12/2023 2:05 PM EDT) Potassium 3.9 3.5 - 5.0 mmol/L [facility] Comment: Please note: ??Patients with [...] S Performing Organization Address [facility] Co de Phone Number [facility] [place] [address] * (ABNORMAL) BLOOD GAS 2 ARTERIAL (05/12/2023 11:05 AM EDT) pH, Arterial 7.34(L) 7.35 - 7.45 [facility] PCO2, Arterial 42 35 - 45 mmHg [facility] PO2, Arterial 73(L) 85 - 104 mmHg [facility] Bicarbonate, Arterial 22.1 20.0 - 26.0 mmol/L [facility] Base Excess, Arterial -3.6(L) -3.0 - 3.0 mmol/L [facility] Hgb Blood Gas 9.3(L) 11.7 - 15.5 g/dL [facility] Oxyhemoglobin, Arterial 89.3(L) 94.0 - 97.0 % [facility] Carboxyhemoglob in, Arterial 0.2 % [facility] Comment: Nonsmokers: 0.5-1.5% COHB Smokers: Variable, but usually less than 10% Toxic: 20-30% COHB Lethal: Greater than 60% COHB Methemoglobin, Arterial 0.9 <=1.5 % [facility] Na Whole Blood 131(L) 135 - 145 mmol/L [facility] K Whole Blood 3.8 3.5 - 5.0 mmol/L [facility] Comment: Please note: Patients with WBC >100,000 may have falsely elevated Potassium levels. Contact the Clinical Chemistry Laboratory if there are any questions. ICa Whole Blood 1.04(L) 1.15 - 1.33 mmol/L [facility] Comment: Note: ??Total bilirubin higher than 20 mg/dL may lead to falsely low ionized calcium. CL Whole Blood 96(L) 98 - 107 mmol/L [facility] Gluc Whole Bld 152 65 - 199 mg/dL [facility] Comment:Diabetes: >=200 mg/d L plus symptoms. Lactate WB 2.8(H) 0.5 - 2.2 mmol/L [facility] FIO2 Art 40 % [facility] PF Ratio Art 182 [facility] Blood 05/12/2023 11:0 5 AM EDT 05/12/2023 11:05 AM EDT Alirio Hudson MD POINT OF CARE TEST ORDERABLES [facility] [place] [address] * (ABNORMAL) BLOOD GAS 2 ARTERIAL (05/12/2023 10:14 AM EDT) pH, Arterial 7.18(Criti gabrielle) 7.35 - 7.45 [facility] Comment:Noted by musical instruments assembler. PCO2, Arterial 45 35 - 45 mmHg [facility] PO2, Arterial 186(H) 85 - 104 mmHg [facility] Bicarbonate, Arterial 16.2(L) 20.0 - 26.0 mmol/L [facility] Base Excess, Arterial -12.2(L) -3.0 - 3.0 mmol/L [facility] Hgb Blood Gas 10.0(L) 11.7 - 15.5 g/dL [facility] Oxyhemoglobin, Arterial 97.0 94.0 - 97.0 % [facility] Carboxyhemoglob in, Arterial 0.2 % [facility] Comment: Nonsmokers: 0.5-1.5% COHB Smokers: Variable, but usually less than 10% Toxic: 20-30% COHB Lethal: Greater than 60% COHB Methemoglobin, Arterial 0.9 <=1.5 % [facility] Na Whole Blood 129(L) 135 - 145 mmol/L [facility] K Whole Blood 3.6 3.5 - 5.0 mmol/L [facility] Comment: Please note: Patients with WBC >100,000 may have falsely elevated Potassium levels. Contact the Clinical Chemistry Laboratory if there are any questions. ICa Whole Blood 1.10(L) 1.15 - 1.33 mmol/L [facility] Comment: Note: ??Total bilirubin higher than 20 mg/dL may lead to falsely low ionized calcium. CL Whole Blood 97(L) 98 - 107 mmol/L [facility] Gluc Whole Bld 161 65 - 199 mg/dL [facility] Comment:Diabetes: >=200 mg/d L plus symptoms. Lactate WB 3.3(H) 0.5 - 2.2 mmol/L [facility] FIO2 Art 100 % [facility] PF Ratio Art 186 [facility] Blood 05/12/2023 10:1 4 AM EDT 05/12/2023 10:14 AM EDT Alirio Hudson MD POINT OF CARE TEST ORDERABLES Performing Organization Address [facility] [facility] [place] [address] * EKG 12 Lead (05/12/2023 10:10 AM EDT) Ventricular rate 116 BPM MUSE SYSTEM Atrial Rate 116 BPM MUSE SYSTEM P-R Interval 158 ms MUSE SYSTEM QRS Duration 114 ms MUSE SYSTEM Q-T Interval 348 ms MUSE SYSTEM QTC Calculated (Bezet) 483 ms MUSE SYSTEM Calculated P [place] 37 degrees MUSE SYSTEM Calculated R [place] 31 degrees MUSE SYSTEM Calculated T [place] -138 degrees MUSE SYSTEM INTERPRETATION Sinus tachycardia [...] interpretation Confirmed by fellow MD Anuja, Jim ([id number]) on 05/12/2023 1:04:20 PM Confirmed by MD Mono, Eleni ([id number]) on 05/12/2023 9:28:34 PM MUSE SYSTEM 05/12/2023 10:1 0 AM EDT 05/12/2023 9:28 PM EDT Alirio Hudson MD ECG ORDERABLES Performing Organization Address [facility] Co de Phone Number MUSE [...] have questions please contact the health care giver that requested your imaging first. ? Electronically signed by: Chyna Johnson MD, [facility] ??([phone]), at 05/12/2023 10:08 AM Narrative 05/12/2023 10:08 AM EDT EXAMINATION: XR CHEST ONE VIEW CLINICAL HISTORY: Post TAVR TECHNIQUE: 1 view of the chest COMPARISON: Chest radiograph from earlier today FINDINGS: Interval placement of endotracheal tube with tip terminating 2 cm above the shira. Interval placement of enteric tube projecting along the expected course of the esophagus and outside the irqag-ko-wtwo. Interval retraction of right IJ approach pulmonary [...] expected course ofthe esophagus and outside the xlzho-ok-cwko. Interval retraction of right IJ approach pulmonary [...] who have questions please contactthe health care giver that requested your imaging first. Electronically signed by: Chyna Johnson MD, [facility]([phone]), at 05/12/2023 10:08 AM Alirio Hudson MD IMG DX ORDERABLES * ECHO LMTD W/O CONTRAST W LMTD SPEC DOPP COLOR DOPP (05/12/2023 9:23 AM EDT) EF 20 HEARTLAB SYSTEM Anatomical Region Laterality Modality Cardiac Other 05/12/2023 7:33 AM EDT Narrative 05/12/2023 10:18 AM EDT ? Echocardiogram Report Name: PURNIMA THACKER ?Study Date: 05/12/2023 07:33 AMBP: 96/63 mmHg ? Patient Location: [address] : 1955 ? Height: 154 cm ? Account: [id number] Age: 67 yrs ? Weight: 75 kg Gender: Female ?BSA: 1.7 m2 Ordering Physician: RADHA HOLLINS Referring Physician: RADHA HOLLINS Performed By: Dilma Bee RDCS Reason For Study: Guidance for TAVR procedure Exam Location: [facility]. Interpretation Summary PRE TAVR: There is severe [...] mL/m2. POST TAVR: Normal function of the vnhln-kd-zkatd prosthesis. See below for hemodynamic parameters. Slight improvement in left and right ventricular systolic function. LVEF now 20-25%. No pericardial effusion. See report for additional findings. Procedure Limited - 10561. Doppler - 61032. Color Doppler - 89772. Left Ventricle Left ventricle is of normal [...] 307:33 AMBP: 96/63 mmHg Patient Location: [address] : 1955 Height: 154 cm Account: [id number] Age: 67 yrs Weight: 75 kg Gender: Female BSA: 1.7 m2 Ordering Physician: RADHA HOLLINS Referring Physician: RADHA HOLLINS Performed By: Dilma Bee RDCS Reason For Study: Guidance for TAVR procedure Exam Location: [facility]. Interpretation Summary PRE TAVR: There is severe [...] 28mL/m2. POST TAVR: Normal function of the fnldy-it-pfxqu prosthesis. See belowfor hemodynamic parameters. Slight improvement in left and right ventricularsystolic function. LVEF now 20-25%. No pericardial effusion. See report for additional findings. Procedure Limited - 87105. Doppler - 43063. Color Doppler - 32721. Left Ventricle Left ventricle is of normal [...] ? Procedure Date: 05/12/2023 ? A #: [id number] ? Primary Physician: Zachary, Antelmo De La Fuente ? Case #: [id number] ? File Name: [id number] ? Catheterization Order Number: [id number] ? [facility] ? Final Report [place], [place] ? Patient Name: ? Purnima M. Kirstie ? ID#: ?[id number] ? : ?1955 ? Procedure Date: ? [...] Device Deployment ?* Temporary Pacemaker Insertion In Water Leak Repairer ?* Endotracheal Intubation By Non-Cath Physician [...] guide. ??A premounted 4.00 x 30 mm [place] (MINNA) was ? deployed with a maximum [...] calculated STS risk score was 30.1%. A sgxye-al-hmclu ?procedure was performed on the pre-existing bioprosthetic stented ?prosthesis. The priority of the lnlso-hi-uaavr procedure was Elective. ?The procedure was performed [...] Ali 3 Ultra RESILIA 23 mm THV (s/l=[id number]) transcatheter ?valve was inserted using standard technique. [...] was it given in the ?clinical laboratory science professor. ?Recommended anti-platelet/anti-thrombotic regimen: ?Continue aspirin 81 mg daily for indefinitely. ?These recommendations are made at the time of the intervention. Patient ?and provider preferences or a changing clinical situation may require ?modification of this regimen. Consult [facility] Interventional Cardiology for ?questions. ? Conclusions: ?* [...] regimen. ? Comments: ?Successful right transfemoral TAVR Zyows-gy-Obiwi with a 23 mm Lai 3 ?THV. [...] site angiography, ?temporary pacemaker in clinical laboratory science professor, intubation-non cath physician, vascular ?closure device, transthoracic echo ??and TAVR. Dr. Alirio Hudson M.D. ?performed the left heart catheterization, access site angiography, ?temporary pacemaker in clinical laboratory science professor, vascular closure device, transthoracic ?echo , TAVR [...] Purnima Thacker Procedure Date: 05/12/2023 A #: [id number] Primary Physician: Antelmo Sharma Case #: [id number] File Name: [id number] Catheterization Order Number: [id number] [facility] FinalReport [place], [place] Patient Name: Purnima Thacker ID#:[id number] :1955 Procedure Date: May 12, 2023 Case #: [id number] Room: 6 Case Physicians: Antelmo Sharma M.D. Start: 08:03 Alirio Hudson M.D. Admission:05/08/2023 Lynda Mcgowan M.D. Discharge:05/22/2023 Fellow: Rebekah Tejeda M.D. Referring Physician: Mario Alberto Chin M.D. Procedures: * Coronary Angiography * Left Heart Catheterization * Coronary Stent Insertion * Transcatheter Aortic Valve Replacement * Vascular Closure Device Deployment * Temporary Pacemaker Insertion In Water Leak Repairer * Endotracheal Intubation By Non-Cath Physician [...] A premounted 4.00 x 30 mm [place] (MINNA) was deployed with a maximum inflation [...] calculated STS risk score was 30.1%. A pcazc-th-wevaf procedure was performed on the pre-existing bioprosthetic stented prosthesis. The priority of the vdceo-hn-ixjev procedure wasElective. The procedure was performed under Moderate sedation performed byLynda Mcgowan M.D. (see anesthesia report for additional details). Alirio Hudson M.D. participated in the case (see Cardiac Surgery reportfor additional details). The TAVR sheath was a 14 Fr Corona eSheath Introducer and theaccess site was femoral. Rapid ventricular pacing was performed. An Corona Lai 3 Ultra RESILIA 23 mm THV (s/d=[id number])transcatheter valve was inserted using standard technique. The [...] nor was it given inthe clinical laboratory science professor. Recommended anti-platelet/anti-thrombotic regimen: Continue aspirin 81 mg daily for indefinitely. These recommendations are made at the time of the intervention.Patient and provider preferences or a changing clinical situation mayrequire modification of this regimen. Consult [facility] Interventional Cardiologyfor questions. Conclusions: * Nonobstructive disease [...] this regimen. Comments: Successful right transfemoral TAVR Zsfic-cr-Tkmpl with a 23 mmSapien 3 THV. We [...] site angiography, temporary pacemaker in clinical laboratory science professor, intubation-non cath physician,vascular closure device, transthoracic echo and TAVR. Dr. Alirio Hudson M.D. performed the left heart catheterization, access site angiography, temporary pacemaker in clinical laboratory science professor, vascular closure device,transthoracic echo , TAVR and [...] pH, POC 7.20(Crit ical) 7.35 - 7.45 [facility] Comment:Critical value OK, C C Lab. pCO2, POC 42 35 - 45 mmHg [facility] pO2, POC 260(H) 85 - 104 mmHg [facility] Base Excess, POC -11.0(L) -3.0 - 3.0 mmol/L [facility] Bicarbonate, POC 16.7(L) 20.0 - 26.0 mmol/L [facility] Sodium, POC 129(L) 135 - 145 mmol/L [facility] POC Potassium 3.8 3.5 - 5.0 mmol/L [facility] Ionized Calcium, POC 1.12(L) 1.15 - 1.33 mmol/L [facility] POC Hematocrit 23.0(L) 34.0 - 45.0 % [facility] POC Calc Hgb 7.8(L) 11.2 - 15.7 g/dL [facility] Comment:The calculation of h emoglobin from hematocrit assumes a normal MCHC. POC Bgas Loc CC Lab [facility] Blood 05/12/2023 8:50 AM EDT 05/13/2023 12:00 PM EDT Alirio Hudson MD CHEMISTRY ORDERABLE S [facility] [place] [address] * (ABNORMAL) Point of Care Blood Gas Historical (05/12/2023 8:10 AM EDT) pH, POC 7.27(Crit ical) 7.35 - 7.45 [facility] Comment:Critical value OK, C C Lab. pCO2, POC 37 35 - 45 mmHg [facility] pO2, POC 29(Critic al) 85 - 104 mmHg [facility] Comment:Critical value OK, C C Lab. Base Excess, POC -10.0(L) -3.0 - 3.0 mmol/L [facility] Bicarbonate, POC 16.7(L) 20.0 - 26.0 mmol/L [facility] Sodium, POC 123(L) 135 - 145 mmol/L [facility] POC Potassium 4.0 3.5 - 5.0 mmol/L [facility] Ionized Calcium, POC 1.12(L) 1.15 - 1.33 mmol/L [facility] POC Hematocrit 27.0(L) 34.0 - 45.0 % [facility] POC Calc Hgb 9.2(L) 11.2 - 15.7 g/dL [facility] Comment:The calculation of h emoglobin from hematocrit assumes a normal MCHC. POC Bgas Loc CC Lab [facility] Blood 05/12/2023 8:10 AM EDT 05/13/2023 12:00 PM EDT Alirio Hudson MD CHEMISTRY ORDERABLE S Performing Organization Address City/[facility]/ZIP Co de Phone Number [facility] [place] [address] * (ABNORMAL) Lactate, whole blood, send to lab ([facility]) (05/12/2023 7:00 AM EDT) Lactate WB 2.4(H) 0.5 - 2.2 mmol/L [facility] Blood 05/12/2023 7:00 AM EDT 05/12/2023 7:09 AM EDT Narrative Resulting Agency Comment Spec In Lab Radha Hollins MD CHEMISTRY ORDERABL ES Performing Organization Address City/[facility]/ZIP Co de Phone Number [facility] [place] [address] * (ABNORMAL) Comprehensive metabolic panel (non-fasting) (05/12/2023 6:00 AM EDT) Glucose 167 65 - 199 mg/dL [facility] Comment:Diabetes: >=200 mg/d L plus symptoms Blood Urea Nitrogen 67(H) 8 - 18 mg/dL [facility] Creatinine 2.01(H) 0.70 - 1.20 mg/dL [facility] Sodium 131(L) 135 - 145 mmol/L [facility] Potassium 4.3 3.5 - 5.0 mmol/L [facility] Comment: Please note: ??Patients with WBC >100,000 may have falsely elevated Potassium levels. ??For accurate Potassium quantification in these patients send serum separator tube (gold top) for subsequent determinations. ??Contact the Clinical Chemistry Laboratory if there are any questions. Chloride 97(L) 98 - 107 mmol/L [facility] Carbon Dioxide 14(L) 22 - 31 mmol/L [facility] Anion Gap 20(H) 5 - 15 mmol/L [facility] Calcium 8.6 8.5 - 10.5 mg/dL [facility] Protein, Total 6.3 6.1 - 8.0 g/dL [facility] Albumin 3.5 3.2 - 5.2 g/dL [facility] Aspartate Aminotransferase 1,435(H) 0 - 30 unit/L [facility] Alanine Aminotransferase 1,174(H) 0 - 30 unit/L [facility] Alkaline Phosphatase 100 35 - 105 unit/L [facility] Bilirubin, Total 0.9 0.2 - 1.3 mg/dL [facility] Est Glomerular Filtration Rate 27(L) >=60 mL/min/1. 73 m?? [facility] Comment: This patient's estimated GFR [...] ES Performing Organization Address [facility] Co de Phone Number [facility] [place] [address] * (ABNORMAL) Coox2 (05/12/2023 5:08 AM EDT) pO2, Coox 24 mmHg [facility] Hgb Blood Gas 10.4(L) 11.7 - 15.5 g/dL [facility] Oxyhemoglobin, Coox 30.7 % [facility] Carboxyhemoglo bin, Coox 0.3 % [facility] Comment: Nonsmokers: 0.5-1.5% COHB Smokers: Variable, but usually less than 10% Toxic: 20-30% COHB Lethal: Greater than 60% COHB Methemoglobin, Coox 0.8 <=1.5 % [facility] Source Coox Mixed Venous [facility] Blood 05/12/2023 5:08 AM EDT 05/12/2023 5:08 AM EDT Radha Hollins MD POINT OF CARE TEST ORDERABLES Performing Organization Address [facility] Co de Phone Number [facility] [place] [address] * (ABNORMAL) Coox2 (05/12/2023 3:21 AM EDT) pO2, Coox 25 mmHg [facility] Hgb Blood Gas 10.8(L) 11.7 - 15.5 g/dL [facility] Oxyhemoglobin, Coox 32.7 % [facility] Carboxyhemoglo bin, Coox 0.3 % [facility] Comment: Nonsmokers: 0.5-1.5% COHB Smokers: Variable, but usually less than 10% Toxic: 20-30% COHB Lethal: Greater than 60% COHB Methemoglobin, Coox 0.7 <=1.5 % [facility] Source Coox Mixed Venous [facility] Blood 05/12/2023 3:21 AM EDT 05/12/2023 3:21 AM EDT Radha Hollins MD POINT OF CARE TEST ORDERABLES [facility] [place] [address] * (ABNORMAL) BLOOD GAS 2 ARTERIAL (05/12/2023 3:18 AM EDT) pH, Arterial 7.34(L) 7.35 - 7.45 [facility] PCO2, Arterial 30(L) 35 - 45 mmHg [facility] PO2, Arterial 72(L) 85 - 104 mmHg [facility] Bicarbonate, Arterial 16.0(L) 20.0 - 26.0 mmol/L [facility] Base Excess, Arterial -9.8(L) -3.0 - 3.0 mmol/L [facility] Hgb Blood Gas 11.0(L) 11.7 - 15.5 g/dL [facility] Oxyhemoglobin, Arterial 89.8(L) 94.0 - 97.0 % [facility] Carboxyhemoglob in, Arterial 0.3 % [facility] Comment: Nonsmokers: 0.5-1.5% COHB Smokers: Variable, but usually less than 10% Toxic: 20-30% COHB Lethal: Greater than 60% COHB Methemoglobin, Arterial 0.7 <=1.5 % [facility] Na Whole Blood 131(L) 135 - 145 mmol/L [facility] K Whole Blood 4.2 3.5 - 5.0 mmol/L [facility] Comment: Please note: Patients with WBC >100,000 may have falsely elevated Potassium levels. Contact the Clinical Chemistry Laboratory if there are any questions. ICa Whole Blood 1.12(L) 1.15 - 1.33 mmol/L [facility] Comment: Note: ??Total bilirubin higher than 20 mg/dL may lead to falsely low ionized calcium. CL Whole Blood 100 98 - 107 mmol/L [facility] Gluc Whole Bld 160 65 - 199 mg/dL [facility] Comment:Diabetes: >=200 mg/d L plus symptoms. Lactate WB 2.7(H) 0.5 - 2.2 mmol/L [facility] Flow Art 5.0 LPM [facility] Blood 05/12/2023 3:18 AM EDT 05/12/2023 3:18 AM EDT Radha Hollins MD POINT OF CARE TEST ORDERABLES Performing Organization Address City/[facility] Co de Phone Number [facility] [place] [address] * (ABNORMAL) Coox2 (05/12/2023 1:14 AM EDT) pO2, Coox 28 mmHg [facility] Hgb Blood Gas 10.9(L) 11.7 - 15.5 g/dL [facility] Oxyhemoglobin, Coox 37.3 % [facility] Carboxyhemoglo bin, Coox 0.3 % [facility] Comment: Nonsmokers: 0.5-1.5% COHB Smokers: Variable, but usually less than 10% Toxic: 20-30% COHB Lethal: Greater than 60% COHB Methemoglobin, Coox 0.5 <=1.5 % [facility] Source Coox Mixed Venous [facility] Blood 05/12/2023 1:14 AM EDT 05/12/2023 1:14 AM EDT Radha Hollins MD POINT OF CARE TEST ORDERABLES Performing Organization Address [facility] Co de Phone Number [facility] [place] [address] * (ABNORMAL) BLOOD GAS 2 ARTERIAL (05/12/2023 1:06 AM EDT) pH, Arterial 7.34(L) 7.35 - 7.45 [facility] PCO2, Arterial 30(L) 35 - 45 mmHg [facility] PO2, Arterial 81(L) 85 - 104 mmHg [facility] Bicarbonate, Arterial 15.7(L) 20.0 - 26.0 mmol/L [facility] Base Excess, Arterial -10.1(L) -3.0 - 3.0 mmol/L [facility] Hgb Blood Gas 11.0(L) 11.7 - 15.5 g/dL [facility] Oxyhemoglobin, Arterial 92.3(L) 94.0 - 97.0 % [facility] Carboxyhemoglob in, Arterial 0.2 % [facility] Comment: Nonsmokers: 0.5-1.5% COHB Smokers: Variable, but usually less than 10% Toxic: 20-30% COHB Lethal: Greater than 60% COHB Methemoglobin, Arterial 0.6 <=1.5 % [facility] Na Whole Blood 131(L) 135 - 145 mmol/L [facility] K Whole Blood 4.2 3.5 - 5.0 mmol/L [facility] Comment: Please note: Patients with WBC >100,000 may have falsely elevated Potassium levels. Contact the Clinical Chemistry Laboratory if there are any questions. ICa Whole Blood 1.13(L) 1.15 - 1.33 mmol/L [facility] Comment: Note: ??Total bilirubin higher than 20 mg/dL may lead to falsely low ionized calcium. CL Whole Blood 99 98 - 107 mmol/L [facility] Gluc Whole Bld 132 65 - 199 mg/dL [facility] Comment:Diabetes: >=200 mg/d L plus symptoms. Lactate WB 2.7(H) 0.5 - 2.2 mmol/L [facility] Flow Art 5.0 LPM [facility] Blood 05/12/2023 1:06 AM EDT 05/12/2023 1:06 AM EDT Radha Hollins MD POINT OF CARE TEST ORDERABLES [facility] [place] [address] * (ABNORMAL) Differential, Automated (05/12/2023 1:05 AM EDT) Neutrophil % 83.3 % [facility] Neutrophil Absolute 7.49(H) 1.70 - 6.10 x10(3)/mc L [facility] Lymph % 7.1 % [facility] Lymphocytes Abs 0.6(L) 0.9 - 3.2 x10(3)/mc L [facility] Monocyte % 8.9 % [facility] Monocyte Abs 0.8 0.3 - 0.9 x10(3)/mc L [facility] Eos % 0.0 % [facility] Eosinophils Abs 0.0 0.0 - 0.4 x10(3)/ L [facility] Basophil % 0.1 % [facility] Baso Absolute 0.0 0.0 - 0.1 x10(3)/ L [facility] Immature Gran % 0.60 % [facility] Comment: Immature granulocytes(IG's)percentage and absolute count will include metamyelocytes, myelocytes, and promyelocytes. Blood smears from CBCs yielding IG's will be scanned manually for concordance. If this scan disagrees with the automated IG or if promyelocytes are noted, a manual differential will be performed. Immature Gran Absolute 0.05(H) 0.00 - 0.04 x10(3)/ L [facility] Blood 05/12/2023 1:05 AM EDT 05/12/2023 1:15 AM EDT Narrative Resulting Agency Comment Spec In Lab Gianni Fletcher MD HEMATOLOGY ORDERABLE S [facility] [place] [address] * (ABNORMAL) Hemogram (05/12/2023 1:05 AM EDT) White Blood Cell 9.0 4.0 - 9.5 x10(3)/ L [facility] Red Blood Cell 3.01(L) 4.00 - 5.21 x10(6)/ L [facility] Hemoglobin 9.8(L) 11.7 - 15.5 g/dL [facility] Hematocrit 28.7(L) 35.7 - 45.8 % [facility] Mean Cell Volume 95.3(H) 82.6 - 94.4 fL [facility] Mean Cell Hemoglobin 32.6(H) 27.1 - 32.0 pg [facility] Mean Cell Hemoglobin Concentration 34.1 31.7 - 35.0 g/dL [facility] Platelet 186 145 - 357 x10(3)/ L [facility] RDW Standard Deviation 43.7 37.0 - 46.0 fL [facility] RDW coefficient of variation 12.7 11.5 - 14.1 % [facility] Mean Platelet Volume 10.3 7.6 - 12.9 fL [facility] NRBC% auto 0.0 % [facility] NRBC Absolute 0.000 0.000 - 0.000 x10(3)/mc L [facility] Blood 05/12/2023 1:05 AM EDT 05/12/2023 1:15 AM EDT Narrative Resulting Agency Comment Spec In Lab Gianni Fletcher MD HEMATOLOGY ORDERABLE S [facility] [place] [address] * (ABNORMAL) Comprehensive metabolic panel (non-fasting) (05/12/2023 1:05 AM EDT) Glucose 141 65 - 199 mg/dL [facility] Comment:Diabetes: >=200 mg/d L plus symptoms Blood Urea Nitrogen 63(H) 8 - 18 mg/dL [facility] Creatinine 1.86(H) 0.70 - 1.20 mg/dL [facility] Sodium 131(L) 135 - 145 mmol/L [facility] Potassium 4.4 3.5 - 5.0 mmol/L [facility] Comment: Please note: ??Patients with WBC >100,000 may have falsely elevated Potassium levels. ??For accurate Potassium quantification in these patients send serum separator tube (gold top) for subsequent determinations. ??Contact the Clinical Chemistry Laboratory if there are any questions. Chloride 96(L) 98 - 107 mmol/L [facility] Carbon Dioxide 14(L) 22 - 31 mmol/L [facility] Anion Gap 21(H) 5 - 15 mmol/L [facility] Calcium 9.0 8.5 - 10.5 mg/dL [facility] Protein, Total 6.6 6.1 - 8.0 g/dL [facility] Albumin 3.9 3.2 - 5.2 g/dL [facility] Aspartate Aminotransferase 1,227(H) 0 - 30 unit/L [facility] Alanine Aminotransferase 1,097(H) 0 - 30 unit/L [facility] Alkaline Phosphatase 108(H) 35 - 105 unit/L [facility] Bilirubin, Total 1.0 0.2 - 1.3 mg/dL [facility] Est Glomerular Filtration Rate 29(L) >=60 mL/min/1. 73 m?? [facility] Comment: This patient's estimated GFR [...] Lab Radha Hollins MD CHEMISTRY ORDERABL ES [facility] [place] [address] * XR Chest One View (05/12/2023 1:00 [...] have questions please contact the health care giver that requested your imaging first. [...] Unchanged osseous structures. Cholecystectomy clips. Procedure Note Argelai Rowe MD - 05/12/2023 EXAMINATION: XR CHEST [...] who have questions please contactthe health care giver that requested your imaging first. Radha Hollins MD IMG DX ORDERABLES * (ABNORMAL) Coox2 (05/12/2023 12:30 AM EDT) pO2, Coox 22 mmHg [facility] Hgb Blood Gas 10.9(L) 11.7 - 15.5 g/dL [facility] Oxyhemoglobin, Coox 25.1 % [facility] Carboxyhemoglo bin, Coox 0.3 % [facility] Comment: Nonsmokers: 0.5-1.5% COHB Smokers: Variable, but usually less than 10% Toxic: 20-30% COHB Lethal: Greater than 60% COHB Methemoglobin, Coox 1.4 <=1.5 % [facility] Source Coox Mixed Venous [facility] Blood 05/12/2023 12:3 0 AM EDT 05/12/2023 12:30 AM EDT Radha Hollins MD POINT OF CARE TEST ORDERABLES Performing Organization Address City/State/[facility] Co de Phone Number [facility] [place] [address] * XR Chest One View (05/11/2023 11:45 [...] have questions please contact the health care giver that requested your imaging first. [...] who have questions please contactthe health care giver that requested your imaging first. Radha Hollins MD IMG DX ORDERABLES * (ABNORMAL) Lactate, whole blood, send to lab ([facility] (05/11/2023 7:40 PM EDT) Lactate WB 4.8(Critic al) 0.5 - 2.2 mmol/L [facility] Comment:Called by: IMM, Read back by: Magdalena Baires, Date/Time:05/11/23 19:54. Blood 05/11/2023 7:40 PM EDT 05/11/2023 7:49 PM EDT Narrative Resulting Agency Comment Spec In Lab Radha Hollins MD CHEMISTRY ORDERABL ES Performing Organization Address City/[facility]/ZIP Co de Phone Number [facility] [place] [address] * Urine culture (05/11/2023 7:22 PM EDT) [facility] Urine Culture 50,000-99,000 cfu/ml Normal mucosal herman Susceptibilit y testing not routinely performed for Coagulase Negative Staphylococcu s species and other Gram Positive organisms from urine. [facility] Clean Catch Urine 05/11/2023 7:22 PM EDT 05/11/2023 8:50 PM EDT Narrative Resulting Agency Comment Spec In Lab Brody Kaplan APRN MICROBIOLOGY - [place] [address] * (ABNORMAL) Urinalysis Microscopic Exam (05/11/2023 7:22 PM EDT) RBC, Urine 2 0 - 4 /HPF [facility] WBC, Urine >100(H) 0 - 5 /HPF [facility] Bacteria, Urine Occasional (A) None /HPF [facility] Squamous Epithelial Cells Raw Data, Urine 5(H) <=4 /HPF [facility] Hyaline Casts, Urine 3(H) 0 - 2 /LPF [facility] Clean Catch Urine 05/11/2023 7:22 PM EDT 05/11/2023 7:31 PM EDT Narrative Resulting Agency Comment Spec In Lab Brody Kaplan GAS MANAGER URINE ORDERABLES Performing Organization Address [facility] de Phone Number [facility] [place] [address] * (ABNORMAL) Urinalysis with reflex Culture (05/11/2023 7:22 PM EDT) Glucose, Urine Dipstick Negative Negative mg/dL [facility] Protein, Urine Dipstick Trace(A) Negative mg/dL [facility] Bilirubin, Urine Dipstick Negative Negative mg/dL [facility] Comment: Clinical correlation required for positive Urine Bilirubin results as false positive may occur with some drugs and drug related products. If a false positive is suspected a serum total bilirubin should be considered if clinically indicated. Urobilinogen, Urine Dipstick Normal Normal mg/dL [facility] pH, Urn (dipstick) 5.0 5.0 - 8.0 [facility] Blood, Urine Dipstick Trace(A) Negative mg/dL [facility] Ketone, Urine Dipstick Negative Negative mg/dL [facility] Nitrite, Urine Dipstick Negative Negative [facility] Leukocytes, Urine Dipstick Moderate(A) Negative mcL [facility] Appearance, Urine Dipstick Cloudy(A) Clear [facility] Specific [place] Urine Automated >=1.030(A) 1.005 - 1.030 [facility] Color, Urine Dipstick Yellow Yellow [facility] Reflex to Culture Yes [facility] Clean Catch Urine 05/11/2023 7:22 PM EDT 05/11/2023 7:31 PM EDT Narrative Resulting Agency Comment Spec In Lab Brody Kaplan GAS MANAGER URINE ORDERABLES Performing Organization Address City/[facility] Co de Phone Number [facility] [place] [address] * (ABNORMAL) pro-Brain Natriuretic Peptide (05/11/2023 7:11 PM EDT) NT-proBNP >35,000(H) <=124 pg/mL [facility] Blood 05/11/2023 7:11 PM EDT 05/11/2023 7:26 PM EDT Narrative Resulting Agency Comment Spec In Lab Radha Hollins MD CHEMISTRY ORDERABL ES Performing Organization Address City/[facility]/ZIP Co de Phone Number [facility] [place] [address] * (ABNORMAL) Lactate, whole blood, send to lab ([facility] (05/11/2023 2:47 PM EDT) Lactate WB 2.9(H) 0.5 - 2.2 mmol/L [facility] Blood 05/11/2023 2:47 PM EDT 05/11/2023 2:53 PM EDT Narrative Resulting Agency Comment Spec In Lab Juan Luis Gonzalez MD CHEMISTRY ORDERABLES Performing Organization Address [facility] [place] [address] * (ABNORMAL) CT Angiogram Abdomen & Pelvis [...] have questions please contact the health care giver that requested your imaging first. ? Electronically signed by: Eileen Gomes MD, [facility] ([phone]), at 05/11/2023 2:42 PM Narrative 05/11/2023 2:42 [...] have questions please contact the health care giver that requested your imaging first. ? Electronically signed by: Cullen Narayanan MD, [facility] ([phone]), at 05/11/2023 4:37 PM Narrative 05/11/2023 4:37 [...] 610 mm2 Circumference: 88 mm Calcification: Mild Lrqsnmv-eg-[id number] height: Left: 6.2 mm Right: 5.8 mm THORACIC AORTA Description: Normal course and caliber. ??Mild diffuse atherosclerotic changes. No acute aortopathy noted. Aerobics Instructor dimensions: Aortic root: 27.6 mm Max ascending [...] 610 mm2 Circumference: 88 mm Calcification: Mild Pwodhdg-rc-smglcklp height: Left: 6.2 mm Right: 5.8 mm THORACIC AORTA Description: Normal course and caliber. Mild diffuse atheroscleroticchanges. No acute aortopathy noted. Aerobics Instructor dimensions: Aortic root: 27.6 mm Max ascending [...] who have questions please contactthe health care giver that requested your imaging first. Electronically signed by: Cullen Narayanan MD, [facility]([phone]), at 05/11/2023 4:37 PM Antelmo Sharma MD IMG CT ORDERABLES * (ABNORMAL) Lactate, whole blood, send to lab ([facility] (05/11/2023 9:29 AM EDT) Pathologist [facility] Lactate WB 3.1(H) 0.5 - 2.2 mmol/L [facility] Blood 05/11/2023 9:29 AM EDT 05/11/2023 9:38 AM EDT Narrative Resulting Agency Comment Spec In Lab Juan Luis Gonzalez MD CHEMISTRY ORDERABLES [facility] [place] [address] * (ABNORMAL) Differential, Automated (05/11/2023 4:42 AM EDT) Pathologist [facility] Neutrophil % 78.1 % [facility] Neutrophil Absolute 5.46 1.70 - 6.10 x10(3)/mc L [facility] Lymph % 10.6 % [facility] Lymphocytes Abs 0.7(L) 0.9 - 3.2 x10(3)/ L [facility] Monocyte % 9.6 % [facility] Monocyte Abs 0.7 0.3 - 0.9 x10(3)/[facility] Eos % 0.0 % [facility] Eosinophils Abs 0.0 0.0 - 0.4 x10(3)/[facility] Basophil % 0.4 % [facility] Baso Absolute 0.0 0.0 - 0.1 x10(3)/[facility] Immature Gran % 1.30 % [facility] Comment: Immature granulocytes(IG's)percentage and absolute count will include metamyelocytes, myelocytes, and promyelocytes. Blood smears from CBCs yielding IG's will be scanned manually for concordance. If this scan disagrees with the automated IG or if promyelocytes are noted, a manual differential will be performed. Immature Gran Absolute 0.09(H) 0.00 - 0.04 x10(3)/ L [facility] Blood 05/11/2023 4:42 AM EDT 05/11/2023 4:49 AM EDT Narrative Resulting Agency Comment Spec In Lab Klaudia Reid MD HEMATOLOGY OR DERABLES Performing Organization Address City/State/[facility] Co de Phone Number [facility] [place] [address] * (ABNORMAL) Hemogram (05/11/2023 4:42 AM EDT) White Blood Cell 7.0 4.0 - 9.5 x10(3)/[facility] Red Blood Cell 3.44(L) 4.00 - 5.21 x10(6)/[facility] Hemoglobin 11.1(L) 11.7 - 15.5 g/dL [facility] Hematocrit 32.7(L) 35.7 - 45.8 % [facility] Mean Cell Volume 95.1(H) 82.6 - 94.4 fL [facility] Mean Cell Hemoglobin 32.3(H) 27.1 - 32.0 pg [facility] Mean Cell Hemoglobin Concentration 33.9 31.7 - 35.0 g/dL [facility] Platelet 165 145 - 357 x10(3)/mc L [facility] RDW Standard Deviation 43.1 37.0 - 46.0 fL [facility] RDW coefficient of variation 12.7 11.5 - 14.1 % [facility] Mean Platelet Volume 10.1 7.6 - 12.9 fL [facility] NRBC% auto 0.0 % [facility] NRBC Absolute 0.000 0.000 - 0.000 x10(3)/mc L [facility] Blood 05/11/2023 4:42 AM EDT 05/11/2023 4:49 AM EDT Narrative Resulting Agency Comment Spec In Lab Klaudia Reid MD HEMATOLOGY OR DERABLES Performing Organization Address City/[facility] de Phone Number [facility] [place] [address] * Heparin (unfractionated) Level (05/11/2023 4:42 AM EDT) UF Heparin 0.46 IU/mL [facility] Comment: Heparin (anti-Xa) levels should [...] Lab Radha Hollins MD HEMATOLOGY ORDERAB LES [facility] [place] [address] * (ABNORMAL) Comprehensive metabolic panel (non-fasting) (05/11/2023 4:42 AM EDT) Glucose 143 65 - 199 mg/dL [facility] Comment:Diabetes: >=200 mg/d L plus symptoms Blood Urea Nitrogen 42(H) 8 - 18 mg/dL [facility] Creatinine 1.24(H) 0.70 - 1.20 mg/dL [facility] Sodium 134(L) 135 - 145 mmol/L [facility] Potassium 4.6 3.5 - 5.0 mmol/L [facility] Comment: Please note: ??Patients with WBC >100,000 may have falsely elevated Potassium levels. ??For accurate Potassium quantification in these patients send serum separator tube (gold top) for subsequent determinations. ??Contact the Clinical Chemistry Laboratory if there are any questions. Chloride 99 98 - 107 mmol/L [facility] Carbon Dioxide 14(L) 22 - 31 mmol/L [facility] Anion Gap 21(H) 5 - 15 mmol/L [facility] Calcium 9.6 8.5 - 10.5 mg/dL [facility] Protein, Total 7.2 6.1 - 8.0 g/dL [facility] Albumin 3.7 3.2 - 5.2 g/dL [facility] Aspartate Aminotransferase 144(H) 0 - 30 unit/L [facility] Comment:result rechecked-ssc Alanine Aminotransferase 130(H) 0 - 30 unit/L [facility] Comment:result rechecked-ssc Alkaline Phosphatase 72 35 - 105 unit/L [facility] Bilirubin, Total 0.8 0.2 - 1.3 mg/dL [facility] Est Glomerular Filtration Rate 48(L) >=60 mL/min/1. 73 m?? [facility] Comment: This patient's estimated GFR [...] MD CHEMISTRY ORDERABL ES Performing Organization Address City/[facility]/ZIP Co de Phone Number [facility] [place] [address] * EKG 12 Lead (05/10/2023 1:16 PM EDT) Ventricular rate 118 BPM MUSE SYSTEM Atrial Rate 118 BPM MUSE SYSTEM P-R Interval 152 ms MUSE SYSTEM QRS Duration 104 ms MUSE SYSTEM Q-T Interval 316 ms MUSE SYSTEM QTC Calculated (Bezet) 442 ms MUSE SYSTEM Calculated P [place] 29 degrees MUSE SYSTEM Calculated R [place] 18 degrees MUSE SYSTEM Calculated T [place] -173 degrees MUSE SYSTEM INTERPRETATION Sinus tachycardia [...] Anterior leads Confirmed by MD Villareal Danette ([id number]) on 05/10/2023 8:47:46 PM MUSE SYSTEM 05/10/2023 1:16 PM EDT 05/10/2023 8:47 PM EDT Juan Luis Gonzalez MD ECG ORDERABLES Performing Organization Address City/[facility]/ZIP Co de Phone Number MUSE SYSTEM * Lactate, whole blood, send to lab ([facility] (05/10/2023 11:52 AM EDT) Lactate WB 1.8 0.5 - 2.2 mmol/L [facility] Blood 05/10/2023 11:5 2 AM EDT 05/10/2023 12:13 PM EDT Narrative Resulting Agency Comment Spec In Lab Juan Luis Gonzalez MD CHEMISTRY ORDERABLES [facility] [place] [address] * XR Chest One View (05/10/2023 11:16 [...] have questions please contact the health care giver that requested your imaging first. ? Electronically signed by: ALIX RUVALCABA MD, [facility] ([phone]), at 05/10/2023 1:25 PM Narrative 05/10/2023 1:25 [...] who have questions please contactthe health care giver that requested your imaging first. Electronically signed by: ALIX RUVALCABA MD, [facility]([phone]), at 05/10/2023 1:25 PM Juan Luis Gonzalez MD IMG DX ORDERABLES * EKG 12 Lead (05/10/2023 7:59 AM EDT) Ventricular rate 115 BPM MUSE SYSTEM Atrial Rate 115 BPM MUSE SYSTEM P-R Interval 142 ms MUSE SYSTEM QRS Duration 102 ms MUSE SYSTEM Q-T Interval 322 ms MUSE SYSTEM QTC Calculated (Bezet) 445 ms MUSE SYSTEM Calculated P [place] 36 degrees MUSE SYSTEM Calculated R [place] 28 degrees MUSE SYSTEM Calculated T [place] -119 degrees MUSE SYSTEM INTERPRETATION Sinus tachycardia with frequent Premature ventricular complexes and Fusion complexes ST & T wave abnormality, consider lateral ischemia Abnormal ECG When compared with ECG of 08-MAY-2023 15:51, No significant change was found I personally reviewed the tracing and edited the fellows interpretation Confirmed by fellow MD Welsh Hanyuan ([id number]) on 05/11/2023 6:19:54 AM Confirmed by MD Ugalde Hannah ([id number]) on 05/11/2023 3:18:56 PM MUSE SYSTEM 05/10/2023 7:59 AM EDT 05/11/2023 3:18 PM EDT Radha Hollins MD ECG ORDERABLES MUSE SYSTEM * (ABNORMAL) Differential, Automated (05/10/2023 2:28 AM EDT) Neutrophil % 77.1 % [facility] Neutrophil Absolute 4.01 1.70 - 6.10 x10(3)/mc L [facility] Lymph % 14.0 % [facility] Lymphocytes Abs 0.7(L) 0.9 - 3.2 x10(3)/mc L [facility] Monocyte % 7.7 % [facility] Monocyte Abs 0.4 0.3 - 0.9 x10(3)/ L [facility] Eos % 0.4 % [facility] Eosinophils Abs 0.0 0.0 - 0.4 x10(3)/[facility] Basophil % 0.4 % [facility] Baso Absolute 0.0 0.0 - 0.1 x10(3)/ L [facility] Immature Gran % 0.40 % [facility] Comment: Immature granulocytes(IG's)percentage and absolute count will include metamyelocytes, myelocytes, and promyelocytes. Blood smears from CBCs yielding IG's will be scanned manually for concordance. If this scan disagrees with the automated IG or if promyelocytes are noted, a manual differential will be performed. Immature Gran Absolute 0.02 0.00 - 0.04 x10(3)/ L [facility] Blood 05/10/2023 2:28 AM EDT 05/10/2023 2:57 AM EDT Narrative Resulting Agency Comment Spec In Lab Klaudia Reid MD HEMATOLOGY OR DERABLES [facility] [place] [address] * (ABNORMAL) Hemogram (05/10/2023 2:28 AM EDT) White Blood Cell 5.2 4.0 - 9.5 x10(3)/mc L [facility] Red Blood Cell 3.11(L) 4.00 - 5.21 x10(6)/mc L [facility] Hemoglobin 10.2(L) 11.7 - 15.5 g/dL [facility] Hematocrit 30.2(L) 35.7 - 45.8 % [facility] Mean Cell Volume 97.1(H) 82.6 - 94.4 fL [facility] Mean Cell Hemoglobin 32.8(H) 27.1 - 32.0 pg [facility] Mean Cell Hemoglobin Concentration 33.8 31.7 - 35.0 g/dL [facility] Platelet 151 145 - 357 x10(3)/mc L [facility] RDW Standard Deviation 44.9 37.0 - 46.0 fL [facility] RDW coefficient of variation 12.8 11.5 - 14.1 % [facility] Mean Platelet Volume 9.8 7.6 - 12.9 fL [facility] NRBC% auto 0.0 % [facility] NRBC Absolute 0.000 0.000 - 0.000 x10(3)/mc L [facility] Blood 05/10/2023 2:28 AM EDT 05/10/2023 2:57 AM EDT Narrative Resulting Agency Comment Spec In Lab Klaudia Reid MD HEMATOLOGY OR DERABLES Performing Organization Address City/State/[facility] Co de Phone Number [facility] [place] [address] * (ABNORMAL) Comprehensive metabolic panel (non-fasting) (05/10/2023 2:28 AM EDT) Glucose 100 65 - 199 mg/dL [facility] Comment:Diabetes: >=200 mg/d L plus symptoms Blood Urea Nitrogen 30(H) 8 - 18 mg/dL [facility] Creatinine 0.90 0.70 - 1.20 mg/dL [facility] Sodium 134(L) 135 - 145 mmol/L [facility] Potassium 4.1 3.5 - 5.0 mmol/L [facility] Comment: Please note: ??Patients with WBC >100,000 may have falsely elevated Potassium levels. ??For accurate Potassium quantification in these patients send serum separator tube (gold top) for subsequent determinations. ??Contact the Clinical Chemistry Laboratory if there are any questions. Chloride 102 98 - 107 mmol/L [facility] Carbon Dioxide 20(L) 22 - 31 mmol/L [facility] Anion Gap 12 5 - 15 mmol/L [facility] Calcium 9.3 8.5 - 10.5 mg/dL [facility] Protein, Total 6.4 6.1 - 8.0 g/dL [facility] Albumin 3.7 3.2 - 5.2 g/dL [facility] Aspartate Aminotransferase 24 0 - 30 unit/L [facility] Alanine Aminotransferase 14 0 - 30 unit/L [facility] Alkaline Phosphatase 70 35 - 105 unit/L [facility] Bilirubin, Total 0.5 0.2 - 1.3 mg/dL [facility] Est Glomerular Filtration Rate 70 >=60 mL/min/1. 73 m?? [facility] Comment: This patient's estimated GFR [...] Lab Radha Hollins MD CHEMISTRY ORDERABL ES [facility] [place] [address] * Heparin (unfractionated) Level (05/10/2023 2:28 AM EDT) UF Heparin 0.37 IU/mL [facility] Comment: Heparin (anti-Xa) [...] Lab Radha Hollins MD HEMATOLOGY ORDERAB LES [facility] [place] [address] * (ABNORMAL) Differential, Automated (05/09/2023 4:00 AM EDT) Neutrophil % 81.7 % [facility] Neutrophil Absolute 5.26 1.70 - 6.10 x10(3)/mc L [facility] Lymph % 10.7 % [facility] Lymphocytes Abs 0.7(L) 0.9 - 3.2 x10(3)/mc L [facility] Monocyte % 6.5 % [facility] Monocyte Abs 0.4 0.3 - 0.9 x10(3)/mc L [facility] Eos % 0.5 % [facility] Eosinophils Abs 0.0 0.0 - 0.4 x10(3)/mc L [facility] Basophil % 0.3 % [facility] Baso Absolute 0.0 0.0 - 0.1 x10(3)/mc L [facility] Immature Gran % 0.30 % [facility] Comment: Immature granulocytes(IG's)percentage and absolute count will include metamyelocytes, myelocytes, and promyelocytes. Blood smears from CBCs yielding IG's will be scanned manually for concordance. If this scan disagrees with the automated IG or if promyelocytes are noted, a manual differential will be performed. Immature Gran Absolute 0.02 0.00 - 0.04 x10(3)/mc L [facility] Blood 05/09/2023 4:00 AM EDT 05/09/2023 4:19 AM EDT Narrative Resulting Agency Comment Spec In Lab Klaudia Reid MD HEMATOLOGY OR DERABLES [facility] [place] [address] * (ABNORMAL) Hemogram (05/09/2023 4:00 AM EDT) White Blood Cell 6.4 4.0 - 9.5 x10(3)/mc L [facility] Red Blood Cell 3.15(L) 4.00 - 5.21 x10(6)/mc L [facility] Hemoglobin 10.2(L) 11.7 - 15.5 g/dL [facility] Hematocrit 30.3(L) 35.7 - 45.8 % [facility] Mean Cell Volume 96.2(H) 82.6 - 94.4 fL [facility] Mean Cell Hemoglobin 32.4(H) 27.1 - 32.0 pg [facility] Mean Cell Hemoglobin Concentration 33.7 31.7 - 35.0 g/dL [facility] Platelet 151 145 - 357 x10(3)/mc L [facility] RDW Standard Deviation 44.7 37.0 - 46.0 fL [facility] RDW coefficient of variation 12.8 11.5 - 14.1 % [facility] Mean Platelet Volume 9.4 7.6 - 12.9 fL [facility] NRBC% auto 0.0 % [facility] NRBC Absolute 0.000 0.000 - 0.000 x10(3)/mc L [facility] Blood 05/09/2023 4:00 AM EDT 05/09/2023 4:19 AM EDT Narrative Resulting Agency Comment Spec In Lab Klaudia Reid MD HEMATOLOGY OR DERABLES Performing Organization Address City/[facility]/ZIP Co de Phone Number [facility] [place] [address] * Heparin (unfractionated) Level (05/09/2023 4:00 AM EDT) UF Heparin 0.47 IU/mL [facility] Comment: Heparin (anti-Xa) [...] MD HEMATOLOGY ORDERAB LES Performing Organization Address City/State/[facility] Co de Phone Number [facility] [place] [address] * (ABNORMAL) Comprehensive metabolic panel (non-fasting) (05/09/2023 4:00 AM EDT) Glucose 108 65 - 199 mg/dL [facility] Comment:Diabetes: >=200 mg/d L plus symptoms Blood Urea Nitrogen 31(H) 8 - 18 mg/dL [facility] Creatinine 1.03 0.70 - 1.20 mg/dL [facility] Sodium 137 135 - 145 mmol/L [facility] Potassium 4.4 3.5 - 5.0 mmol/L [facility] Comment: Please note: ??Patients with WBC >100,000 may have falsely elevated Potassium levels. ??For accurate Potassium quantification in these patients send serum separator tube (gold top) for subsequent determinations. ??Contact the Clinical Chemistry Laboratory if there are any questions. Chloride 102 98 - 107 mmol/L [facility] Carbon Dioxide 20(L) 22 - 31 mmol/L [facility] Anion Gap 15 5 - 15 mmol/L [facility] Calcium 9.3 8.5 - 10.5 mg/dL [facility] Protein, Total 6.6 6.1 - 8.0 g/dL [facility] Albumin 3.8 3.2 - 5.2 g/dL [facility] Aspartate Aminotransferase 32(H) 0 - 30 unit/L [facility] Alanine Aminotransferase 18 0 - 30 unit/L [facility] Alkaline Phosphatase 78 35 - 105 unit/L [facility] Bilirubin, Total 0.5 0.2 - 1.3 mg/dL [facility] Est Glomerular Filtration Rate 60 >=60 mL/min/1. 73 m?? [facility] Comment: This patient's estimated GFR [...] ES Performing Organization Address [facility] Co de Phone Number [facility] [place] [address] * (ABNORMAL) pro-Brain Natriuretic Peptide (05/08/2023 4:00 PM EDT) NT-proBNP 25,503(H) <=124 pg/mL [facility] Blood Venous Draw / Unknown 05/08/2023 4:00 PM EDT 05/08/2023 4:25 PM EDT Narrative Resulting Agency Comment Spec In Lab Juan Luis Gonzalez MD CHEMISTRY ORDERABLES Performing Organization Address City/[facility]/ZIP Co de Phone Number [facility] [place] [address] * Magnesium (05/08/2023 4:00 PM EDT) Magnesium 0.82 0.69 - 1.07 mmol/L [facility] Blood 05/08/2023 4:00 PM EDT 05/08/2023 4:06 PM EDT Narrative Resulting Agency Comment Spec In Lab Enrique Chua MD CHEMISTRY ORDERABLES Performing Organization Address [facility] Co de Phone Number [facility] [place] [address] * Potassium (05/08/2023 4:00 PM EDT) Pathologist [facility] Potassium 3.9 3.5 - 5.0 mmol/L [facility] Comment: Please note: ??Patients [...] ORDERABL ES Performing Organization Address [facility] de Phone Number [facility] [place] [address] * Heparin (unfractionated) Level (05/08/2023 4:00 PM EDT) Pathologist [facility] UF Heparin 0.43 IU/mL [facility] Comment: Heparin (anti-Xa) [...] Lab Radha Hollins MD HEMATOLOGY ORDERAB LES [facility] [place] [address] * EKG 12 Lead (05/08/2023 3:51 PM EDT) Pathologist [facility] Ventricular rate 98 BPM MUSE SYSTEM Atrial Rate 98 BPM MUSE SYSTEM P-R Interval 150 ms MUSE SYSTEM QRS Duration 102 ms MUSE SYSTEM Q-T Interval 358 ms MUSE SYSTEM QTC Calculated (Bezet) 457 ms MUSE SYSTEM Calculated P [place] 38 degrees MUSE SYSTEM Calculated R [place] 48 degrees MUSE SYSTEM Calculated T [place] -112 degrees MUSE SYSTEM INTERPRETATION Sinus rhythm with frequent and consecutive Premature ventricular and fusion complexes Septal infarct , age undetermined ST & T wave abnormality, consider anterolateral ischemia Abnormal ECG When compared with ECG of 09-NOV-2022 11:17, T wave inversion now evident in Anterolateral leads Confirmed by MD Harshil, Enrique Bell ([id number]) on 05/10/2023 8:11:46 AM MUSE SYSTEM 05/08/2023 3:51 PM EDT 05/10/2023 8:11 AM EDT Radha Hollins MD ECG ORDERABLES Performing Organization Address City/[facility]/ZIP Co de Phone Number MUSE SYSTEM * (ABNORMAL) Differential, Automated (05/08/2023 11:38 AM EDT) [facility] Neutrophil % 71.3 % [facility] Neutrophil Absolute 2.91 1.70 - 6.10 x10(3)/mc L [facility] Lymph % 19.1 % [facility] Lymphocytes Abs 0.8(L) 0.9 - 3.2 x10(3)/mc L [facility] Monocyte % 9.0 % [facility] Monocyte Abs 0.4 0.3 - 0.9 x10(3)/mc L [facility] Eos % 0.2 % [facility] Eosinophils Abs 0.0 0.0 - 0.4 x10(3)/mc L [facility] Basophil % 0.2 % [facility] Baso Absolute 0.0 0.0 - 0.1 x10(3)/mc L [facility] Immature Gran % 0.20 % [facility] Comment: Immature granulocytes(IG's)percentage and absolute count will include metamyelocytes, myelocytes, and promyelocytes. Blood smears from CBCs yielding IG's will be scanned manually for concordance. If this scan disagrees with the automated IG or if promyelocytes are noted, a manual differential will be performed. Immature Gran Absolute 0.01 0.00 - 0.04 x10(3)/ L [facility] Blood 05/08/2023 11:3 8 AM EDT 05/08/2023 11:44 AM EDT Narrative Resulting Agency Comment Spec In Lab Lincoln Sal MD HEMATOLOGY ORDERA BLES Performing Organization Address City/State/[facility] Co de Phone Number [facility] [place] [address] * (ABNORMAL) Hemogram (05/08/2023 11:38 AM EDT) White Blood Cell 4.1 4.0 - 9.5 x10(3)/ L [facility] Red Blood Cell 3.05(L) 4.00 - 5.21 x10(6)/[facility] Hemoglobin 10.2(L) 11.7 - 15.5 g/dL [facility] Hematocrit 29.6(L) 35.7 - 45.8 % [facility] Mean Cell Volume 97.0(H) 82.6 - 94.4 fL [facility] Mean Cell Hemoglobin 33.4(H) 27.1 - 32.0 pg [facility] Mean Cell Hemoglobin Concentration 34.5 31.7 - 35.0 g/dL [facility] Platelet 136(L) 145 - 357 x10(3)/mc [facility] RDW Standard Deviation 44.3 37.0 - 46.0 fL [facility] RDW coefficient of variation 12.6 11.5 - 14.1 % [facility] Mean Platelet Volume 9.4 7.6 - 12.9 fL [facility] NRBC% auto 0.0 % [facility] NRBC Absolute 0.000 0.000 - 0.000 x10(3)/mc L [facility] Blood 05/08/2023 11:3 8 AM EDT 05/08/2023 11:44 AM EDT Narrative Resulting Agency Comment Spec In Lab Lincoln Sal MD HEMATOLOGY ORDERA BLES Performing Organization Address City/[facility]/ZIP Co de Phone Number [facility] [place] [address] * TSH (05/08/2023 11:38 AM EDT) Thyroid Stimulating Hormone 1.27 0.27 - 4.20 mcIU/mL [facility] Comment: Reference Interval (mcIU/mL): Females: ??First Trimester: 0.23-3.88 ??Second Trimester: 0.22-3.90 ??Third Trimester: 0.44-4.66 Blood 05/08/2023 11:3 8 AM EDT 05/08/2023 11:44 AM EDT Narrative Resulting Agency Comment Spec In Lab Enrique Chua MD CHEMISTRY ORDERABLES Performing Organization Address [facility] Co de Phone Number [facility] [place] [address] * (ABNORMAL) Phosphorus (05/08/2023 11:38 AM EDT) Phosphorus 4.7(H) 2.5 - 4.5 mg/dL [facility] Blood 05/08/2023 11:3 8 AM EDT 05/08/2023 11:44 AM EDT Narrative Resulting Agency Comment Spec In Lab Enrique Chua MD CHEMISTRY ORDERABLES Performing Organization Address [facility] Co de Phone Number [facility] [place] [address] * Magnesium (05/08/2023 11:38 AM EDT) Magnesium 0.76 0.69 - 1.07 mmol/L [facility] Blood 05/08/2023 11:3 8 AM EDT 05/08/2023 11:44 AM EDT Narrative Resulting Agency Comment Spec In Lab Enrique Chua MD CHEMISTRY ORDERABLES Performing Organization Address City/State/[facility] Co de Phone Number [facility] [place] [address] * (ABNORMAL) Basic Metabolic Panel (non-fasting) (05/08/2023 11:38 AM EDT) Glucose 97 65 - 199 mg/dL [facility] Comment:Diabetes: >=200 mg/d L plus symptoms Blood Urea Nitrogen 27(H) 8 - 18 mg/dL [facility] Creatinine 1.02 0.70 - 1.20 mg/dL [facility] Sodium 139 135 - 145 mmol/L [facility] Potassium 4.2 3.5 - 5.0 mmol/L [facility] Comment: Please note: ??Patients with WBC >100,000 may have falsely elevated Potassium levels. ??For accurate Potassium quantification in these patients send serum separator tube (gold top) for subsequent determinations. ??Contact the Clinical Chemistry Laboratory if there are any questions. Chloride 105 98 - 107 mmol/L [facility] Carbon Dioxide 20(L) 22 - 31 mmol/L [facility] Anion Gap 14 5 - 15 mmol/L [facility] Calcium 9.4 8.5 - 10.5 mg/dL [facility] Est Glomerular Filtration Rate 60 >=60 mL/min/1. 73 m?? [facility] Comment: This patient's estimated GFR [...] In Lab Enrique Chua MD CHEMISTRY ORDERABLES [facility] [place] [address] * ECHO COMPLETE (05/08/2023 11:02 AM EDT) EF 25 HEARTLAB SYSTEM Anatomical Region Laterality Modality Cardiac Other 05/08/2023 10:0 3 AM EDT Narrative 05/08/2023 11:51 AM EDT ? Echocardiogram Report Name: PURNIMA THACKER ?Study Date: 05/08/2023 10:03 AMBP: 92/64 mmHg ? Patient Location: [facility]^CV29^A : 1955 ? Height: 155 cm ? Account: [id number] Age: 67 yrs ? Weight: 78 kg Gender: Female ?BSA: 1.8 m2 Ordering Physician: ENRIQUE CHUA Referring Physician: MARIO ALBERTO CHIN Performed By: CHUCKIE Canchola Reason For Study: SAVR Stenosis Exam Location: [facility]. Interpretation Summary -Left ventricle is severely dilated [...] worsening stenosis. Mitral regurgitation is similar. Procedure Complete-[id number]. Satisfactory quality. There is normal sinus rhythm. [...] MD - 05/08/2023 Echocardiogram Report Name: LASHELL THACKERDARWIN Mejias Study Date: 0:03 AMBP: 92/64 mmHg Patient Location:[facility]^CV29^A : 1955 Height: 155 cm Account: [id number] Age: 67 yrs Weight: 78 kg Gender: Female BSA: 1.8 m2 Ordering Physician: ENRIQUE CHUA Referring Physician: MARIO ALBERTO CHIN Performed By: CHUCKIE Canchola Reason For Study: SAVR Stenosis Exam Location: [facility]. Interpretation Summary -Left ventricle is severely dilated [...] suggestsworsening stenosis. Mitral regurgitation is similar. Procedure Complete-[id number]. Satisfactory quality. There is normal sinus rhythm. 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 Mild coronary artery disease by [facility] 11/09/2022 Mixed connective tissue disease Other specified [...] ejection fraction Mild coronary artery disease by [facility] 11/09/2022 Stenosis of prosthetic aortic valve (Bovine [...] 1149 (Patch Applied - Provider: Kia Gallego, RN)2349 (Patch Removed - Provider: Favian Mckeon [...] Routine documented in this encounter Care Teams Senior Enterprise Architect Relationship Specialty Start Date End Date Magdalena Acosta MD [address] [place] [address] PCP - General Family Medicine 02/05/23 documented as of this encounter
--- OUTSIDE RECORDS SUMMARY | 2024-06-06 14:02 | XMS_ITS | Encounter Summary ---
Author Organization [facility] [address] Care Team Providers Care Piling Setter Name Role Phone Magdalena Acosta MD Primary Care Provider [phone] Encounter Details Date Type Department Care Team [...] EST Office Visit Hematology and Oncology at [place] [phone] Markel Borjas MD [facility] [place] [address] 11/02/2024 12:00 PM EDT Appointment [place] [address] 11/02/2024 1:00 PM EDT Office [place] [address] Magdalena Peralta MD [facility] [place] [address] 03/01/2025 4:15 PM EDT Office Visit Dermatology at [place] [address] [place] [phone] Marek Bonilla MD [address] [place] [address] documented as of this encounter Visit Diagnoses Not on filedocumented in this encounter Care Teams Piling Setter Relationship Specialty Start Date End Date Magdalena Acosta MD [address] [place] [address] PCP - General Family Medicine 02/05/23 documented as of this encounter
--- OUTSIDE RECORDS SUMMARY | 2024-06-06 14:02 | XMS_ITS | Encounter Summary ---
Author Organization [facility] Address [facility] [place] [address] Care Team Providers Care Movement Assembler Name Role Phone Ashley Quirogan [place] ANURAG Primary Care Provider [phone] Encounter Details Date Type Department Care Team (Late st Contact Info) Description 01/14/2023 Refill Dermatology at [address] [address] Lupe Connor RN Social History [...] She would like the medication called into [facility] in [facility]. Discussed with Dr. Bonilla and he has approved refill of the Doxycycline 50 mg take one capsule by mouth daily in the evenings dispense 30 capsules with 2 refills. Patient notified. documented in this encounter Plan of Treatment Upcoming Encounters Date Type Department Care Team (Late st Contact Info) Description 06/23/2024 2:00 PM EST Office Visit Hematology and Oncology at [place] [phone] Markel Borjas MD [facility] [address] H[place]AT[place]Y [place] [address] 11/02/2024 12:00 PM EDT [place] [address] 11/02/2024 1:00 PM EDT [place] [address] Magdalena Peralta MD [facility] [place] [address] 03/01/2025 4:15 PM EDT Office Visit Dermatology at [place] [address] [place] [address] Marek Bonilla MD [address] DERMATOLOGY [place], [place] [id number] documented as of this encounter Visit Diagnoses Not on filedocumented in this encounter Care Teams Movement Assembler Relationship Specialty Start Date End Date Deborah Quiroga APRN PCP - General Family Medicine 03/24/16 02/04/23 documented as of this encounter
--- OUTSIDE RECORDS SUMMARY | 2024-06-06 14:03 | XMS_ITS | Encounter Summary ---
Author Organization [facility] Erika [facility] [place] [address] Care Team Providers Care Trouble Operator Name Role Phone Ashley Quirogazac Shields APRN Primary Care Provider [phone] Encounter Details Date Type Department Care Team [...] EST Office Visit Hematology and Oncology at [place] [phone] Markel Borjas MD [facility] [address] [place] [address] 11/02/2024 12:00 PM EDT Appointment [place] [address] 11/02/2024 1:00 PM EDT Office [place] [address] Magdalena Peralta MD [facility] [place] [address] 03/01/2025 4:15 PM EDT Office Visit Dermatology at [place] [address] [place] [phone] Marek Bonilla MD [address] [place] [address] documented as of this encounter Visit Diagnoses Not on filedocumented in this encounter Care Teams Trouble Operator Relationship Specialty Start Date End Date Deborah Quiroga APRN PCP - General Family Medicine 03/24/16 02/04/23 documented as of this encounter
--- OUTSIDE RECORDS SUMMARY | 2024-06-06 14:03 | XMS_ITS | Encounter Summary ---
Author Organization [facility] Address [facility] [place] [address] Care Team Providers Care Kennel Manager Name Role Phone Deborah Quiroga APRN Primary Care Provider [phone] Reason for Visit * Consultation (Routine) - Closed Specialty Diagnoses / Procedures Referred By Contkrystle t Referred To Contact Rheumatology Diagnoses Positive FRANCISCO (antinuclear antibody) Arthralgia, unspecified joint Sandy Wu APRN [address] [place] [address] [facility] [address] [place] [address] Referral ID Status Reason Start Date Expiration Date V isits Requested Visits Authorized [id number] Closed Consult, Test & Treat PCP Updated and/or Approved 01/01/2022 01/01/2023 6 6 Encounter Details Date Type Department Care Team (Latest Contact Info) Description 01/20/2022 10:00 AM EDT Office [place] [address] Raymond Loredo MD [facility] [place] [address] Rosacea; Raynaud's phenomenon without gangrene; [...] over radiocarpal or ulnocarpal joints. Hands: Normal academy director and claw. SJC/TJC 0/0. Hips: Full motion, [...] can be done locally or here at [facility] that the current time is not particularly interested it seems Raymond Loredo MD documented in this encounter Plan of Treatment Upcoming Encounters Date Type Department Care Team (Late st Contact Info) Description 06/23/2024 2:00 PM EST Office Visit Hematology and Oncology at [place] [phone] Markel Borjas MD [facility] [address] HEMATOLOGY [place] [address] 11/02/2024 12:00 PM EDT Appointment Pulmonology at [place] [address] 11/02/2024 1:00 PM EDT Office Visit Rheumatology at [place] [address] Magdalena Peralta MD [facility] [place] [address] 03/01/2025 4:15 PM EDT Office Visit Dermatology at [place] [address] [place] [address] Marek Bonilla MD [address] [place] [address] Scheduled Referrals Name Type Priority Associated Diagnoses [...] syndrome documented in this encounter Care Teams Kennel Manager Relationship Specialty Start Date End Date Deborah Quiroga APRN PCP - General Family Medicine 03/24/16 02/04/23 documented as of this encounter
--- OUTSIDE RECORDS SUMMARY | 2024-06-06 14:03 | XMS_ITS | Encounter Summary ---
Author Organization [facility] [place] [address] Care Team Providers Care Community Marketing Coordinator Name Role Phone Winter Quiroga APRN Primary Care Provider [phone] Encounter Details Date Type Department Care Team (Late st Contact Info) Description 06/05/2021 Interpretation Only [address] [phone] Winter Quiroga APRN [address] [phone] Social History Tobacco Use Types Packs/Day Years [...] EST Office Visit [place]ematology [place] [phone] Markel Borjas MD [facility] [address] HEMATOLOGY [place] [address] 11/02/2024 12:00 PM EDT [place] [phone] 11/02/2024 1:00 PM EDT Office [place] [address] Magdalena Peralta MD [facility] [place] [address] 03/01/2025 4:15 PM EDT Office Visit Dermatology at [place] [address] [place] [address] Marek Bonilla MD [address], [place] [address] documented as of this encounter Procedures Procedure Name Priority Date/Time Associated Diagnosis Comments DXA CENTRAL SPINE, HIP, AND/OR WHOLE BODY (GENERIC) Routine 06/05/2021 11:58 AM EDT documented in this encounter Results * DXA Central Spine, Hip, and/or Whole Body (Generic) (06/05/2021 11:58 AM EDT) PT CLASS O RAD ADMITDTTM RAD PT RAD INFO [id number]^E VERETT^WINTER ^E RAD EXAM DESC XDXAC^DEXA SCAN [...] questions please contact the health hospice care transitions coordinator that requested your imaging first. ? Electronically signed by: Rocael Villatoro MD, [facility] ([phone]), at 06/05/2021 12:00 PM Narrative 06/05/2021 12:00 [...] have questions please contactthe health hospice care transitions coordinator that requested your imaging first. Electronically signed by: Rocael Villatoro MD, [facility]([phone]), at 06/05/2021 12:00 PM Winter Quiroga APRN [facility] DEXA ORDERABLES documented in this encounter Visit Diagnoses Not on filedocumented in this encounter Care Teams Community Marketing Coordinator Relationship Specialty Start Date End Date Winter Quiroga APRN PCP - General Family Medicine 03/24/16 02/04/23 documented as of this encounter
--- OUTSIDE RECORDS SUMMARY | 2024-06-06 14:03 | XMS_ITS | Encounter Summary ---
Author Organization [facility] [place] [address] Care Team Providers Care Camp Assistant Name Role Phone Deborah Quiroga APRN Primary Care Provider +1 [phone] Encounter Details Date Type Department Care Team (Latest Contact Info) Description 07/03/2022 12:28 PM EST - 07/03/2022 1:35 PM EST Hospital Encounter Hematology [place] [address] Chronic idiopathic neutropenia Discharge Disposition: Home Social [...] EST Office Visit Hematology [place] [phone] Markel Borjas MD [facility] DR [place] [address] 11/02/2024 12:00 PM EDT Appointment [place] [phone] 11/02/2024 1:00 PM EDT Office [place] [phone] Magdalena Peralta MD [facility] [place] [address] 03/01/2025 4:15 PM EDT Office Visit Dermatology at [place] [address] [facility] [place] [phone] Marek Bonilla MD [address] [place] [address] RD, [place] [address] documented as of this encounter Procedures Procedure [...] 12:40 PM EST) Neutrophil % 72.9 % [facility] Neutrophil Absolute 2.61 1.70 - 6.10 x10(3)/mc L [facility] Lymph % 18.4 % [facility] Lymphocytes Abs 0.7(L) 0.9 - 3.2 x10(3)/mc L [facility] Monocyte % 8.4 % [facility] Monocyte Abs 0.3 0.3 - 0.9 x10(3)/mc L [facility] Eos % 0.0 % [facility] Eosinophils Abs 0.0 0.0 - 0.4 x10(3)/mc L [facility] Basophil % 0.3 % UNIVERSITY [...] ORDERAB LES [facility] [place] [address] * (ABNORMAL) Hemogram (07/03/2022 12:40 PM EST) White Blood Cell 3.6(L) 4.0 - 9.5 x10(3)/[facility] Red Blood Cell 3.61(L) 4.00 - 5.21 x10(6)/[facility] Hemoglobin 11.7 11.7 - 15.5 g/dL [...] HOSPITAL LABORATORY Platelet 171 145 - 357 x10(3)/[facility] RDW Standard Deviation 40.5 37.0 - 46.0 [facility] RDW coefficient of variation 11.5 11.5 - 14.1 % [facility] Mean Platelet Volume 9.2 7.6 - 12.9 fL [facility] NRBC% auto 0.0 % [facility] NRBC Absolute 0.000 0.000 - 0.000 x10(3)/ L [facility] Blood 07/03/2022 12:4 0 PM EST 07/03/2022 1:03 PM EST Narrative Resulting Agency Comment Spec In Lab Markel Borjas MD HEMATOLOGY ORDERAB LES [facility] [place] [address] * (ABNORMAL) Comprehensive metabolic panel (non-fasting) (07/03/2022 [...] patient's estimated GFR was calculated using the 2021 CKD-EPI equation. The estimated GFR can vary [...] ORDERABL ES [facility] [place] [id number] documented in this encounter Visit Diagnoses Diagnosis Chronic idiopathic neutropenia Other neutropenia documented in this encounter Care Teams Camp Assistant Relationship Specialty Start Date End Date Deborah Quiroga APRN PCP - General Family Medicine 03/24/16 02/04/23 documented as of this encounter
--- OUTSIDE RECORDS SUMMARY | 2024-06-06 14:03 | XMS_ITS | Encounter Summary ---
Author Organization [facility] Erika [facility] [place] [address] Care Team Providers Care Pals Specialist Name Role Phone Ashley Quirogazac Shields APRN Primary Care Provider +1 [phone] Encounter Details Date Type Department Care Team [...] EST Office Visit Hematology and Oncology at [place] [phone] Markel Borjas MD [facility] [address] [place] [address] 11/02/2024 12:00 PM EDT [place] [address] 11/02/2024 1:00 PM EDT [place] [address] Magdalena Peralta MD [facility] [place] [address] 03/01/2025 4:15 PM EDT Office Visit Dermatology at [place] [address] [place] [phone] Marek Bonilla MD [address] [place] [address] documented as of this encounter Visit Diagnoses Not on filedocumented in this encounter Care Teams Pals Specialist Relationship Specialty Start Date End Date Deborah Quiroga APRN PCP - General Family Medicine 03/24/16 02/04/23 documented as of this encounter
--- OUTSIDE RECORDS SUMMARY | 2024-06-06 14:03 | XMS_ITS | Encounter Summary ---
Author Organization [facility] [place] [address] Care Team Providers Care Taxicab Dispatcher Name Role Phone Winter Quiroga APRN Primary Care Provider [phone] Encounter Details Date Type Department Care Team (Late st Contact Info) Description 06/05/2021 Interpretation Only [address] [address] Winter Quiroga APRN [address] [phone] Social History Tobacco Use Types Packs/Day Years [...] EST Office Visit Hematology [place] [phone] Markel Borjas MD [facility] [address] HEMATOLOGY [place] [address] 11/02/2024 12:00 PM EDT Appointment [place] [phone] 11/02/2024 1:00 PM EDT Office [place] [address] Magdalena Peralta MD [facility] [place] [address] 03/01/2025 4:15 PM EDT Office Visit Dermatology at [place] [address] [place] [address] Marek Bonilla MD [address], [place] [address] documented as of this encounter Procedures Procedure Name Priority Date/Time Associated Diagnosis Comments MAMMO SCREENING CAD AND CATRACHITO BILATERAL Routine 06/05/2021 11:42 AM EDT documented in this encounter Results * Mammo Screening Cad and Catrachito Bilateral (06/05/2021 11:42 AM EDT) PT CLASS O DH RAD ADMITDTTM DH RAD PT DH RAD INFO [id number]^EVERET T^WINTER^E DH RAD EXAM DESC MADDSCTO^BREAST SCREEN [...] Electronically signed by: Rocael Villatoro MD, [facility] ([phone]), at 06/05/2021 1:27 PM Narrative 06/05/2021 1:27 [...] Electronically signed by: Rocael Villatoro MD, [facility]([phone]), at 06/05/2021 1:27 PM Winter Quiroga APRN IMG MAMMO ORDERABLE S documented in this encounter Visit Diagnoses Not on filedocumented in this encounter Care Teams Taxicab Dispatcher Relationship Specialty Start Date End Date Winter Quiroga APRN PCP - General Family Medicine 03/24/16 02/04/23 documented as of this encounter
--- OUTSIDE RECORDS SUMMARY | 2024-06-06 14:03 | XMS_ITS | Encounter Summary ---
Author Organization [facility] Address [facility] [place] [address] Care Team Providers Care Oil Producer Name Role Phone Deborah Quiroga APRN Primary Care Provider +1 [phone] Reason for Visit * Reason Comments Follow-up Encounter Details Date Type Department Care Team (Late st Contact Info) Description 07/03/2022 1:30 PM EST Office Visit Hematology [place] [address] Markel Borjas MD [facility] DR HEMAT[place] [address] Consuelo Sommer APRN [facility] DR [place] [address] Chronic idiopathic neutropenia; Dysuria Social History Tobacco [...] 07/03/2022 1:30 PM EST Hematology Outpatient [facility] [...] TOUCH PREP, CLOT SECTION, CORE ??BIOPSY); [OSR# [id number], COLLECTED 06/23/2016, 19 SLIDES]: ?1. ??Normocellular marrow [...] a clonal lymphoproliferative or myeloproliferative disorder (OSR# [id number]) Chromosome analysis on the marrow aspirate revealed [...] - neg ETOH - neg Works at [employer] in [employer] department Plays competitive scrabble, and goes to [email or web address] Family History: No known primary marrow disorders [...] intact. Extremities: No edema. Labs: Hgb= 11.7 Xjzy=618 ANC= 2.5 Imaging As above - reviewed [...] EST Office Visit Hematology [place] [address] Markel Borjas MD [facility] [address] HEMAT[place] [address] 11/02/2024 12:00 PM EDT Appointment [place] [address] 11/02/2024 1:00 PM EDT Office [place] [phone] Magdalena Peralta MD [facility] [place] [address] 03/01/2025 4:15 PM EDT Office Visit Dermatology at [address] [place] [phone] Marek Bonilla MD [address] [facility], [place] [address] documented as of this encounter Procedures Procedure [...] tract infection, submit a new specimen. (A) [facility] Clean Catch Urine 07/03/2022 2:00 PM EST 07/03/2022 5:55 PM EST Narrative Resulting Agency Comment Spec In Lab Markel Borjas MD MICROBIOLOGY - GEN ERAL ORDERABLES [facility] [place] [address] * (ABNORMAL) Urinalysis Microscopic Exam (07/03/2022 2:00 PM EST) RBC, Urine 2 0 - 4 /HPF [facility] WBC, Urine 14(H) 0 - 5 /HPF [facility] Bacteria, Urine Occasional (A) None /HPF [facility] Squamous Epithelial Cells Raw Data, Urine 12(H) <=4 /HPF [facility] Hyaline Casts, Urine 2 0 - 2 /LPF [facility] Clean Catch Urine 07/03/2022 2:00 PM EST 07/03/2022 2:29 PM EST Narrative Resulting Agency Comment Spec In Lab Markel Borjas MD URINE ORDERABLES Performing Organization Address City/[facility]/ZIP Co de Phone Number [facility] [place] [address] * (ABNORMAL) Urinalysis with reflex Culture (07/03/2022 2:00 PM EST) Glucose, Urine Dipstick Negative Negative mg/dL [facility] Protein, Urine Dipstick 30(A) Negative mg/dL [facility] Bilirubin, Urine Dipstick Negative Negative mg/dL [facility] Comment: Clinical correlation required for positive Urine Bilirubin results as false positive may occur with some drugs and drug related products. If a false positive is suspected a serum total bilirubin should be considered if clinically indicated. Urobilinogen, Urine Dipstick Normal Normal mg/dL [facility] pH, Urn (dipstick) 5.5 5.0 - 8.0 [facility] Blood, Urine Dipstick Negative Negative mg/dL [facility] Ketone, Urine Dipstick Trace(A) Negative mg/dL [facility] Nitrite, Urine Dipstick Negative Negative [facility] Leukocytes, Urine Dipstick Small(A) Negative [facility] Appearance, Urine Dipstick Clear Clear [facility] Specific [place] Urine Automated 1.022 1.005 - 1.030 [facility] Color, Urine Dipstick Yellow Yellow [facility] Reflex to Culture Yes [facility] Clean Catch Urine 07/03/2022 2:00 PM EST 07/03/2022 2:29 PM EST Narrative Resulting Agency Comment Spec In Lab Markel Borjas MD URINE ORDERABLES Performing Organization Address City/[facility]/ZIP Co de Phone Number [facility] [place] [address] * (ABNORMAL) Comprehensive metabolic panel (non-fasting) (07/03/2022 [...] MD CHEMISTRY ORDERABL ES Performing Organization Address City/State/[facility] Co de Phone Number [facility] [place] [phone] documented in this encounter Visit Diagnoses Diagnosis Chronic idiopathic neutropenia Other neutropenia Dysuria documented in this encounter Care Teams Oil Producer Relationship Specialty Start Date End Date Deborah Quiroga APRN PCP - General Family Medicine 03/24/16 02/04/23 documented as of this encounter
--- OUTSIDE RECORDS SUMMARY | 2024-06-06 14:03 | XMS_ITS | Encounter Summary ---
[place] [address] Care Team Providers Care Automobile Leasing Supervisor Name Role Phone Ashley Quirogan Cornelius ANURAG Primary Care Provider [phone] Reason for Visit * Reason Comments Acrochordon Rosacea Encounter Details Date Type Department Care Team (Late st Contact Info) Description 12/05/2020 3:00 PM EDT Office Visit Dermatology at [address] [address] Marek Bonilla MD [address] [facility], [place] [address] Inflamed acrochordon Social History Tobacco Use Types [...] EST Office Visit Hematology [place] [address] Markel Borjas MD [facility] [address] HEMATOLOGY [place] [address] 11/02/2024 12:00 PM EDT Appointment Pulmonology at [place] [address] 11/02/2024 1:00 PM EDT Office [place] [address] Magdalena Peralta MD [facility] [place] [address] 03/01/2025 4:15 PM EDT Office Visit Dermatology at [address] [place] [address] Marek Bonilla MD [address], [place] [address] documented as of this encounter Visit Diagnoses Diagnosis Inflamed acrochordon Unspecified hypertrophic and atrophic condition of skin documented in this encounter Care Teams Automobile Leasing Supervisor Relationship Specialty Start Date End Date Deborah Quiroga APRN PCP - General Family Medicine 03/24/16 02/04/23 documented as of this encounter
--- OUTSIDE RECORDS SUMMARY | 2024-06-06 14:03 | XMS_ITS | Encounter Summary ---
Author Organization [facility] [place] [address] Care Team Providers Care Laboratory Engineer Name Role Phone Deborah Quiroga APRN Primary Care Provider [phone] Encounter Details Date Type Department Care Team (Late st Contact Info) Description 06/17/2022 Ancillary Procedure Radiology Library at [facility] [place] [address] Deborah Quiroga APRN [address] [place] [phone] Social History Tobacco Use Types Packs/Day [...] EST Office Visit Hematology [place] [address] Markel Borjas MD [facility] HEMATOLOGY [place] [address] 11/02/2024 12:00 PM EDT Appointment [place] [phone] 11/02/2024 1:00 PM EDT Office [place] [address] Magdalena Peralta MD [facility] [address] [place] [address] 03/01/2025 4:15 PM EDT Office Visit Dermatology at [place] [address] [facility] [place] [address] Marek Bonilla MD [address], [place] [address] documented as of this encounter Procedures Procedure Name Priority Date/Time Associated Diagnosis Comments FILM LIBRARY STORAGE ONLY MR SPINE Routine 06/17/2022 12:00 AM EST documented in this encounter Results * Film Library- Storage Only MR Spine (06/17/2022 12:00 AM EST) Narrative [facility][NOTE 2] - 06/18/2022 11:00 AM EST This exam is auto-finalizing. It's purpose is for storage only. Deborah Quiroga APRN IMGerman FILM LIBRARY OR DERABLES Performing Organization Address City/State/[facility] Co de Phone Number [place], [place] documented in this encounter Visit Diagnoses Not on filedocumented in this encounter Care Teams Laboratory Engineer Relationship Specialty Start Date End Date Deborah Quiroga APRN PCP - General Family Medicine 03/24/16 02/04/23 documented as of this encounter
--- OUTSIDE RECORDS SUMMARY | 2024-06-06 14:03 | XMS_ITS | Encounter Summary ---
[place] [address] Care Team Providers Care Results Engineer Name Role Phone Junaid Deborah Shields APRN Primary Care Provider [phone] Reason for Visit * Reason Comments Follow-up Encounter Details Date Type Department Care Team (Late st Contact Info) Description 01/10/2021 4:30 PM EDT Office Visit Dermatology at [place] [address] [facility] [place] [phone] Marek Bonilla MD [address] [facility], [place]Y [place], [place] [phone] Rosacea Social History Tobacco Use Types Packs/Day [...] cutaneous and ocular 2. Previously told by machine presser that she had corneal tears from her [...] 3 refills. Will call this in her [facility] pharmacy in [place] 3. Continue metronidazole 0.75% gel applying once [...] EST Office Visit [place]ology [place] [address] Markel Borjas MD [facility] [address] [place] [address] 11/02/2024 12:00 PM EDT [place]oint[place] [phone] 11/02/2024 1:00 PM EDT Office [place] [phone] Magdalena Peralta MD [facility] [place] [address] 03/01/2025 4:15 PM EDT Office Visit Dermatology at [place] [address] [place] [phone] Marek Bonilla MD [address] [address] [place] [address] documented as of this encounter Visit Diagnoses Diagnosis Rosacea documented in this encounter Care Teams Results Engineer Relationship Specialty Start Date End Date Deborah Quiroga APRN PCP - General Family Medicine 03/24/16 02/04/23 documented as of this encounter
--- OUTSIDE RECORDS SUMMARY | 2024-06-06 14:03 | XMS_ITS | Encounter Summary ---
Author Organization [facility] Address [facility] [place] [address] Care Team Providers Care Accounts Executive Name Role Phone Ashley Quirogazac Shields APRN Primary Care Provider [phone] Encounter Details Date Type Department Care Team (Late st Contact Info) Description 01/13/2021 Refill Dermatology at [address] [address] [place] Malone, YARDAGE CONTROL OPERATOR Social History Tobacco Use Types Packs/Day [...] EST Office Visit [place]ematology [place] [address] Makrel Borjas MD [facility] [address] [place] [address] 11/02/2024 12:00 PM EDT Appointment [place] [address] 11/02/2024 1:00 PM EDT Office [place] [address] Magdalena Peralta MD [facility] [place] [address] 03/01/2025 4:15 PM EDT Office Visit Dermatology at [place] [address] [place] [phone] Marek Bonilla MD [address] [facility] [address], [place] [address] documented as of this encounter Visit Diagnoses Not on filedocumented in this encounter Care Teams Accounts Executive Relationship Specialty Start Date End Date Deborah Quiroga APRN PCP - General Family Medicine 03/24/16 02/04/23 documented as of this encounter
--- OUTSIDE RECORDS SUMMARY | 2024-06-06 14:03 | XMS_ITS | Encounter Summary ---
Author Organization [facility] Address [facility] [place] [address] Care Team Providers Care Pants Closer Name Role Phone Ashley Quirogan Cornelius ANURAG Primary Care Provider [phone] Encounter Details Date Type Department Care Team (Late st Contact Info) Description 07/21/2017 Orders Only Hematology and Oncology at [place] [phone] Alexandrea Greenwood RN Other neutropenia Social History [...] EST Office Visit Hematology and Oncology at [place] [phone] Markel Borjas MD [facility] DR [place] [address] 11/02/2024 12:00 PM EDT Appointment Pulmonology at [place] [phone] 11/02/2024 1:00 PM EDT Office Visit Rheumatology at [place] [phone] Magdalena Peralta MD [facility] [place] [address] 03/01/2025 4:15 PM EDT Office Visit Dermatology at [place] [address] [facility] [place] [address] Marek Bonilla MD [address] [facility] [address] [address], [place] [address] documented as of this encounter Visit Diagnoses Diagnosis Other neutropenia documented in this encounter Care Teams Pants Closer Relationship Specialty Start Date End Date Deborah Quiroga APRN PCP - General Family Medicine 03/24/16 02/04/23 documented as of this encounter
--- OUTSIDE RECORDS SUMMARY | 2024-06-06 14:03 | XMS_ITS | Encounter Summary ---
Author Organization [facility] Address [facility] Erika [place] [id number] Care Team Providers Care Pipeline Superintendent Name Role Phone Ashley Quirogan Cornelius ANURAG Primary Care Provider [phone] Encounter Details Date Type Department Care Team (Late st Contact Info) Description 12/04/2016 External Results Hematology and Oncology at [place] [phone] Teresa Dodson RN Social History Tobacco Use [...] EST Office Visit Hematology and Oncology at [place] [phone] Markel Borjas MD [facility] [place] [address] 11/02/2024 12:00 PM EDT Appointment Pulmonology at [place] [phone] 11/02/2024 1:00 PM EDT Office Visit Rheumatology at [place] [phone] Magdalena Peralta MD [facility] [address] 03/01/2025 4:15 PM EDT Office Visit Dermatology at [place] [address] [place] [phone] Marek Bonilla MD [address] [facility] [address], [place] [address] documented as of this encounter Procedures Procedure Name Priority Date/Time Associated Diagnosis Comments CBC (WITH DIFF) Routine 12/03/2016 11:35 AM EDT COMPREHENSIVE METABOLIC PANEL Routine 12/03/2016 11:35 AM EDT documented in this encounter Results * (ABNORMAL) Comprehensive metabolic panel (non-fasting) (12/03/2016 11:35 AM EDT) Glucose 85([facility]) Blood Urea Nitrogen 11([facility]) Creatinine 0.93(Exte rnal Lab) Sodium 140(Exter nal Lab) Potassium 4.2(Exter nal Lab) Chloride 104(Exter nal Lab) Calcium 10.0(Exte rnal Lab) Protein, Total 8.1(Exter nal Lab) Albumin 3.5(Exter nal Lab) Bilirubin, Total 0.25(Exte rnal Lab) Alkaline Phosphatase 96([facility]) Aspartate Aminotransferase 18([facility]) Alanine Aminotransferase 21([facility]) Blood specimen (specimen) 12/03/2016 11:35 AM EDT Historical Provider CHEMISTRY ORDERAB LES * (ABNORMAL) CBC (with Diff) (12/03/2016 11:35 AM EDT) White Blood Cell 1.61(EXTER NAL/ABN) 4.4 - 10.8 Hemoglobin 13.0(Exter nal Lab) Hematocrit 39.8(Exter nal Lab) Platelet 248([facility]) Neutrophil Absolute (ANC) - Automated 0.5(QUALITY AUDIT REPRESENTATIVE AL/ABN) Blood specimen (specimen) 12/03/2016 11:35 AM EDT Historical Provider HEMATOLOGY ORDERA BLES documented in this encounter Visit Diagnoses Not on filedocumented in this encounter Care Teams Pipeline Superintendent Relationship Specialty Start Date End Date Deborah Quiroga, GLOBAL SAFETY OFFICER PCP - General Family Medicine 03/24/16 02/04/23 documented as of this encounter
--- OUTSIDE RECORDS SUMMARY | 2024-06-06 14:03 | XMS_ITS | Encounter Summary ---
Author Organization [facility] Address [facility] [place] [address] Care Team Providers Care Financial Health Counselor Name Role Phone Deborah Quiroga APRN Primary Care Provider [phone] Encounter Details Date Type Department Care Team (Late st Contact Info) Description 06/18/2017 11:00 AM EST Office Visit Hematology [place] [address] Markel Borjas MD [facility] DR HEMATOLOGY [place] [address] Neutropenia, unspecified type Social History Tobacco Use [...] 06/18/2017 11:00 AM EST Hematology Outpatient Clinic [facility] [...] TOUCH PREP, CLOT SECTION, CORE ??BIOPSY); [OSR# [id number], COLLECTED 06/23/2016, 19 SLIDES]: ?1. ??Normocellular marrow [...] a clonal lymphoproliferative or myeloproliferative disorder (OSR# [id number]) Chromosome analysis on the marrow aspirate revealed [...] working the same job and participating in [employer] patients. Past Medical/Surgical History: 1. Leukopenia -element of neutropenia, as noted above 2. Aortic Stenosis -severe -AVR surgery 3. Hypercholesterolemia 4. Depression 5. Hypertension 6. 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 Extremities: No edema. Labs: Hgb= 13 Fpff=657 ANC= 0.6 Imaging As above - reviewed [...] EST Office Visit Hematology and Oncology at [place] [phone] Markel Borjas MD [facility] DR HEMATOLOGY [place] [address] 11/02/2024 12:00 PM EDT Appointment Pulmonology at [place] [address] 11/02/2024 1:00 PM EDT Office Visit Rheumatology at [place] [address] Magdalena Peralta MD [facility] [place] [address] 03/01/2025 4:15 PM EDT Office Visit Dermatology at [address] [place] [address] Marek Bonilla MD [address], [place] [address] documented as of this encounter Visit Diagnoses Diagnosis Neutropenia, unspecified type documented in this encounter Care Teams Financial Health Counselor Relationship Specialty Start Date End Date Deborah Quiroga APRN PCP - General Family Medicine 03/24/16 02/04/23 documented as of this encounter
--- OUTSIDE RECORDS SUMMARY | 2024-06-06 14:03 | XMS_ITS | Encounter Summary ---
Author Organization [facility] [place] [address] Care Team Providers Care Fur Buyer Name Role Phone Ashley Quirogazac Shields APRN Primary Care Provider [phone] [phone] Encounter Details Date Type Department Care Team (Late st Contact Info) Description 06/18/2017 External Results Hematology and Oncology at [place] [phone] Alexandrea Greenwood RN Neutropenia, unspecified type Social [...] EST Office Visit [place] [address] Markel Borjas MD [facility] [place] [address] 11/02/2024 12:00 PM EDT [place] [address] 11/02/2024 1:00 PM EDT Office Visit Rheumatology at [place] [phone] Magdalena Peralta MD [facility] [place] [address] 03/01/2025 4:15 PM EDT Office Visit Dermatology at [place] [address] [place] [address] Marek Bonilla MD [address], [place] [address] documented as of this encounter Procedures Procedure [...] type documented in this encounter Care Teams Fur Buyer Relationship Specialty Start Date End Date Deborah Quiroga, IMPROVEMENT COORDINATOR PCP - General Family Medicine 03/24/16 02/04/23 documented as of this encounter
--- OUTSIDE RECORDS SUMMARY | 2024-06-06 14:03 | XMS_ITS | Encounter Summary ---
[place] [address] Care Team Providers Care Concrete Paver Name Role Phone Ashley Quirogan Cornelius ANURAG Primary Care Provider [phone] Encounter Details Date Type Department Care Team (Late st Contact Info) Description 02/07/2020 Telephone Hematology [place] [address] Ellen Rios RN Social History [...] provided for pt are: CBC only at [facility]- Pt will go by 02/27 Orders faxed to [phone]). Spoke with pt. She will call [facility] directly to schedule a time that works for her. documented in this encounter Plan of Treatment Upcoming Encounters Date Type Department Care Team (Late Contact Info) Description 06/23/2024 2:00 PM EST Office Visit Hematology [place] [address] Markel Borjas MD [facility] [address] [place] [address] 11/02/2024 12:00 PM EDT Appointment Pulmonology at [place] [address] 11/02/2024 1:00 PM EDT Office Visit Rheumatology at [place] [phone] Magdalena Peralta MD [facility] [place] [address] 03/01/2025 4:15 PM EDT Office Visit Dermatology at [place] [address] [address] Marek Bonilla MD [address], [place] [address] documented as of this encounter Visit Diagnoses Not on filedocumented in this encounter Care Teams Concrete Paver Relationship Specialty Start Date End Date Deborah Quiroga APRN PCP - General Family Medicine 03/24/16 02/04/23 documented as of this encounter
--- OUTSIDE RECORDS SUMMARY | 2024-06-06 14:03 | XMS_ITS | Encounter Summary ---
Author Organization [facility] [place] [address] Care Team Providers Care Gutter Hanger Name Role Phone Ashley Quirogan Sylvia ANURAG Primary Care Provider [phone] Reason for Visit * Reason Comments Skin Check Encounter Details Date Type Department Care Team (Late st Contact Info) Description 11/11/2020 10:45 AM EDT Office Visit Dermatology at [address] [place] [address] Marek Bonilla MD [address] [facility], QUOC A DERMATOLOGY [place], [place] [phone] Rosacea; Acrochordon Social History Tobacco Use Types [...] Discussed the possibility of getting this through [facility] or from the [facility] pharmacy if necessary. She has not yet [...] EST Office Visit [place]ematology [place] [address] Markel Borjas MD [facility] [address] [place] [address] 11/02/2024 12:00 PM EDT Appoint[place] [address] 11/02/2024 1:00 PM EDT Office [place] [address] Magdalena Peralta MD [facility] [place] [address] 03/01/2025 4:15 PM EDT Office Visit Dermatology at [place] [address] [facility] [address] [place] [address] Marek Bonilla MD [address], [place] [address] documented as of this encounter Visit Diagnoses Diagnosis Rosacea Acrochordon Unspecified hypertrophic and atrophic condition of skin documented in this encounter Care Teams Gutter Hanger Relationship Specialty Start Date End Date Deborah Quiroga, GELATIN PLANT SUPERVISOR PCP - General Family Medicine 03/24/16 02/04/23 documented as of this encounter
--- OUTSIDE RECORDS SUMMARY | 2024-06-06 14:03 | XMS_ITS | Encounter Summary ---
Author Organization [facility] Address [facility] [place] [address] Care Team Providers Care Metal Patternmaker Apprentice Name Role Phone Junaid Deborah Shields APRN Primary Care Provider [phone] Encounter Details Date Type Department Care Team (Late st Contact Info) Description 03/04/2020 External Results Hematology and Oncology at [place] [phone] TherBhumi villela Social History Tobacco Use Types [...] Visit Hematology and Oncology at [place] [phone] Markel Borjas MD [facility] HEMATOLOGY [place] [address] 11/02/2024 12:00 PM EDT Appointment Pulmonology at [place] [phone] 11/02/2024 1:00 PM EDT Office Visit Rheumatology at [place] [phone] Magdalena Peralta MD [facility] [place] [address] 03/01/2025 4:15 PM EDT Office Visit Dermatology at [place] [address] [place] [address] Marek Bonilla MD [address], [place] [address] documented as of this encounter Procedures Procedure [...] filedocumented in this encounter Care Teams Metal Patternmaker Apprentice Relationship Specialty Start Date End Date Deborah Quiroga APRN PCP - General Family Medicine 03/24/16 02/04/23 documented as of this encounter
--- OUTSIDE RECORDS SUMMARY | 2024-06-06 14:03 | XMS_ITS | Encounter Summary ---
[place] [address] Care Team Providers Care Counter Caser Name Role Phone Ashley Quirogan Cornelius ANURAG Primary Care Provider [phone] Reason for Visit * Reason Onset Date Comments Medical Care Coordination 07/27/2017 Encounter Details Date Type Department Care Team (Late st Contact Info) Description 07/27/2017 Telephone Hematology [place] [address] Alexandrea Greenwood RN Medical Care Coordination Social [...] 07/27/2017 12:25 PM EST Message received from health administrator: Injection/Infusion Referral Call placed to [facility] @ [phone] Spoke w/ PUBLISHING DIRECTOR Services to be provided for pt are: CBC/CMP DONE Q6 MONTHS X2 STARTING NOVEMBER 2017 TECH confirmed they would provide services to pt - I CALLED PT, LM. Pt orders faxed to [phone] documented in this encounter Plan of Treatment Upcoming Encounters Date Type Department Care Team (Late st Contact Info) Description 06/23/2024 2:00 PM EST Office Visit Hematology [place] [address] Markel Borjas MD [facility] [address] HEMATOLOGY [place] [address] 11/02/2024 12:00 PM EDT Appointment Pulmonology at [place] [address] 11/02/2024 1:00 PM EDT Office Visit Rheumatology at [place] [address] Magdalena Peralta MD [facility] [place] [address] 03/01/2025 4:15 PM EDT Office Visit Dermatology at [place] [address] [place] [address] Marek Bonilla MD [address], [place] [address] documented as of this encounter Visit Diagnoses Not on filedocumented in this encounter Care Teams Counter Caser Relationship Specialty Start Date End Date Deborah Quiroga APRN PCP - General Family Medicine 03/24/16 02/04/23 documented as of this encounter
--- OUTSIDE RECORDS SUMMARY | 2024-06-06 14:03 | XMS_ITS | Encounter Summary ---
Author Organization [facility] [place] [address] Care Team Providers Care Assistant Drafter Name Role Phone Winter Quiroga APRN Primary Care Provider [phone] Encounter Details Date Type Department Care Team (Late st Contact Info) Description 06/05/2021 Interpretation Only [address] [address] Winter Quiroga APRN [address] [phone] Social History Tobacco Use Types Packs/Day Years [...] EST Office Visit Hematology [place] [address] Markel Borjas MD [facility] [place] [address] 11/02/2024 12:00 PM EDT Appointment [place] [address] 11/02/2024 1:00 PM EDT Office [place] [address] Magdalena Peralta MD [facility] [place] [address] 03/01/2025 4:15 PM EDT Office Visit Dermatology at [place] [address] [place] [address] Marek Bonilla MD [address], [place] [address] documented as of this encounter Procedures Procedure Name Priority Date/Time Associated Diagnosis Comments MAMMO SCREENING CAD BILATERAL Routine 06/05/2021 11:42 AM EDT documented in this encounter Results * Mammo Screening Cad Bilateral (06/05/2021 11:42 AM EDT) PT CLASS O RAD ADMITDTTM RAD PT RAD INFO [id number]^EV ERETT^WINTER^E RAD EXAM DESC MADDSC^SCREEN MAMMO BL [...] questions please contact the health managed care provider that requested your imaging first. ? Electronically signed by: Rocael Villatoro MD, [facility] ([phone]), at 06/05/2021 1:27 PM Narrative 06/05/2021 1:27 [...] have questions please contactthe health managed care provider that requested your imaging first. Electronically signed by: Rocael Villatoro MD, [facility]([phone]), at 06/05/2021 1:27 PM Winter Quiroga APRN IMG MAMMO ORDERABLE S documented in this encounter Visit Diagnoses Not on filedocumented in this encounter Care Teams Assistant Drafter Relationship Specialty Start Date End Date Winter Quiroga APRN PCP - General Family Medicine 03/24/16 02/04/23 documented as of this encounter
--- OUTSIDE RECORDS SUMMARY | 2024-06-06 14:03 | XMS_ITS | Encounter Summary ---
Author Organization [facility] Address [facility] [place] [address] Care Team Providers Care Master Glazier Name Role Phone Junaid, Deborah Shields APRN Primary Care Provider [phone] Reason for Visit * Reason Comments Schedule Office Case Pain right leg Encounter Details Date Type Department Care Team (Late st Contact Info) Description 12/11/2016 9:00 AM EDT Office Visit Hematology [place] [address] Markel Borjas MD [facility] [place] [address] Neutropenia, unspecified type Social History Tobacco Use [...] EDT Hematology Outpatient Clinic [facility] [...] TOUCH PREP, CLOT SECTION, CORE ??BIOPSY); [OSR# [id number], COLLECTED 06/23/2016, 19 SLIDES]: ?1. ??Normocellular marrow [...] a clonal lymphoproliferative or myeloproliferative disorder (OSR# [id number]) Chromosome analysis on the marrow aspirate revealed [...] intact. Extremities: No edema. Labs: Hgb= 13 Gycs=705 ANC= 0.5 Imaging As above - reviewed [...] induces by ASHLEIGH-I. She has stopped the ASHLEIHG-I, and ANC has not improved. While spironolactone [...] EST Office Visit Hematology [place] [address] Markel Borjas MD [facility] [place] [address] 11/02/2024 12:00 PM EDT Appointment [place] [address] 11/02/2024 1:00 PM EDT Office [place] [address] Magdalena Peralta MD [facility] [place] [address] 03/01/2025 4:15 PM EDT Office Visit Dermatology at [place] [address] [place] [address] Marek Bonilla MD [address], [place] [address] documented as of this encounter Results * [...] MD HEMATOLOGY ORDERAB LES Performing Organization Address City/[facility]/ZIP Co de Phone Number EXTERNAL LAB * Comprehensive metabolic panel (non-fasting) [...] type documented in this encounter Care Teams Master Glazier Relationship Specialty Start Date End Date Deborah Quiroga APRN PCP - General Family Medicine 03/24/16 02/04/23 documented as of this encounter
--- OUTSIDE RECORDS SUMMARY | 2024-06-06 14:03 | XMS_ITS | Encounter Summary ---
[place] [address] Care Team Providers Care Rodeo Rider Name Role Phone Ashley Quirogazac Shields APRN Primary Care Provider [phone] Reason for Visit * Reason Comments Annual Exam Encounter Details Date Type Department Care Team (Late st Contact Info) Description 01/09/2022 3:15 PM EDT Office Visit Dermatology at [address] [phone] Marek Bonilla MD [address] [facility], QU[address] A DERMATOLOGY [place], [place] [address] Rosacea Social History Tobacco Use Types Packs/Day [...] cutaneous and ocular 2. Previously told by loom fixer apprentice that she had corneal tears from her [...] refills. We will call this into her [facility] in [place] 3. Continue metronidazole 0.75% [...] EST Office Visit Hematology [place] [address] Markel Borjas MD [facility] [place] [address] 11/02/2024 12:00 PM EDT Appointment [place] [address] 11/02/2024 1:00 PM EDT Office [place] [address] Magdalena Peralta MD [facility] [place] [address] 03/01/2025 4:15 PM EDT Office Visit Dermatology at [place] [address] [facility] [place] [address] Marek Bonilla MD [address], [place] [address] documented as of this encounter Visit Diagnoses Diagnosis Rosacea documented in this encounter Care Teams Rodeo Rider Relationship Specialty Start Date End Date Deborah Quiroga APRN PCP - General Family Medicine 03/24/16 02/04/23 documented as of this encounter
--- OUTSIDE RECORDS SUMMARY | 2024-06-06 14:03 | XMS_ITS | Encounter Summary ---
Author Organization [facility] Address [facility] [place] [address] Care Team Providers Care Gusset Maker Name Role Phone Deborah Quiroga ANURAG Primary Care Provider [phone] Encounter Details Date Type Department Care Team (Late st Contact Info) Description 01/09/2022 Refill Dermatology at [address] [phone] Lupe Connor RN Social History Tobacco Use [...] EST Office Visit Hematology and Oncology at [place] [phone] Markel Borjas MD [facility] DR HEMATOLOGY [place] [address] 11/02/2024 12:00 PM EDT Appointment [place] [address] 11/02/2024 1:00 PM EDT Office Visit Rheumatology at [place] [phone] Magdalena Peralta MD [facility] [place] [address] 03/01/2025 4:15 PM EDT Office Visit Dermatology at [place] [address] [place] [address] Marek Bonilla MD [address], [place] [address] documented as of this encounter Visit Diagnoses Not on filedocumented in this encounter Care Teams Gusset Maker Relationship Specialty Start Date End Date Deborah Quiroga APRN PCP - General Family Medicine 03/24/16 02/04/23 documented as of this encounter
--- OUTSIDE RECORDS SUMMARY | 2024-06-06 14:03 | XMS_ITS | Encounter Summary ---
[place] [address] Care Team Providers Care Profile Mill Operator Tape Control Name Role Phone Deborah Quiroga APRN Primary Care Provider [phone] Reason for Referral * Consultation (Routine) - Closed Specialty Diagnoses / Procedures Referred By Contac t Referred To Contact Rheumatology Diagnoses Positive FRANCISCO (antinuclear antibody) Arthralgia, unspecified joint Sandy Wu APRN [address] [place] [address] [facility] Rheumatology [address] [place] [phone] Referral ID Status Reason Start Date Expiration Date V isits Requested Visits Authorized [id number] Closed Consult, Test & Treat PCP Updated and/or Approved 01/01/2022 01/01/2023 6 6 Encounter Details Date Type Department Care Team (Latest Contact Info) Description 01/01/2022 Transcribe Orders eDH Incoming Referrals [phone] Sandy Wu APRN [address] [place], [place] [id number] Positive FRANCISCO (antinuclear antibody); Arthralgia, unspecified joint [...] EST Office Visit Hematology and Oncology at [place] [phone] Markel Borjas MD [facility] [address] [place] [address] 11/02/2024 12:00 PM EDT Appointment Pulmonology at [address] 11/02/2024 1:00 PM EDT Office Visit Rheumatology at [place] [address] Magdalena Peralta MD [facility] [place] [address] 03/01/2025 4:15 PM EDT Office Visit Dermatology at [address] [phone] Marek Bonilla MD [address] [place] [address], [place] [address] Scheduled Referrals Name Type Priority Associated Diagnoses Orde r Schedule Referral to Rheumatology Outpatient Referral Routine Positive FRANCISCO (antinuclear antibody) Arthralgia, unspecified joint Ordered: 01/01/2022 documented as of this encounter Visit Diagnoses Diagnosis Positive FRANCISCO (antinuclear antibody) Other and unspecified nonspecific immunological findings Arthralgia, unspecified joint documented in this encounter Care Teams Profile Mill Operator Tape Control Relationship Specialty Start Date End Date Deborah Quiroga APRN PCP - General Family Medicine 03/24/16 02/04/23 documented as of this encounter
--- OUTSIDE RECORDS SUMMARY | 2024-06-06 14:03 | XMS_ITS | Encounter Summary ---
Author Organization [facility] [place] [address] Care Team Providers Care Framing Mechanic Name Role Phone Deborah Quiroga APRN Primary Care Provider Encounter Details Date Type Department Care Team (Late st Contact Info) Description 06/08/2022 Ancillary Procedure Radiology Library at [place] [address] Deborah Quiroga APRN [address] [place] [phone] Social History Tobacco Use Types Packs/Day [...] EST Office Visit Hematology [place] [address] Markel Borjas MD [facility] HEMATOLOGY [place] [address] 11/02/2024 12:00 PM EDT Appointment [place] [address] 11/02/2024 1:00 PM EDT Office [place] [address] Magdalena Peralta MD [facility] [place] [address] 03/01/2025 4:15 PM EDT Office Visit Dermatology at [place] [address] [facility] [place] [address] Marek Bonilla MD [address], [place] [address] documented as of this encounter Procedures Procedure Name Priority Date/Time Associated Diagnosis Comments FILM LIBRARY STORAGE ONLY DX SPINE Routine 06/08/2022 12:00 AM EST documented in this encounter Results * Film Library- Storage Only DX Spine (06/08/2022 12:00 AM EST) Narrative [facility] - 06/18/2022 10:57 AM EST This exam is auto-finalizing. It's purpose is for storage only. Deborah Quiroga APRN IMGerman FILM LIBRARY OR DERABLES Performing Organization Address City/State/[facility] Co de Phone Number [place], [place] documented in this encounter Visit Diagnoses Not on filedocumented in this encounter Care Teams Framing Mechanic Relationship Specialty Start Date End Date Deborah Quiroga APRN PCP - General Family Medicine 03/24/16 02/04/23 documented as of this encounter
--- OUTSIDE RECORDS SUMMARY | 2024-06-06 14:03 | XMS_ITS | Encounter Summary ---
Author Organization [facility] Address [facility] [place] [address] Care Team Providers Care Reheater Name Role Phone Deborah Quiroga APRN Primary Care Provider +1 [phone] Encounter Details Date Type Department Care Team (Late st Contact Info) Description 03/01/2020 11:30 AM EDT Office Visit [place] [phone] Patrick Borjas MD [facility] [address] HEMATOLOGY [place] [address] Neutropenia, unspecified type Social History Tobacco Use [...] TOUCH PREP, CLOT SECTION, CORE ??BIOPSY); [OSR# [id number], COLLECTED 06/23/2016, 19 SLIDES]: ?1. 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 Extremities: No edema. Labs: Hgb= 12.4 Ukdh=277 ANC= 2.5 Imaging As above - reviewed [...] EST Office Visit [place] [address] Patrick Borjas MD [facility] [address] HEMATOLOGY [place] [address] 11/02/2024 12:00 PM EDT [place] [address] 11/02/2024 1:00 PM EDT Office [place] [address] Magdalena Peralta MD [facility] [place] [address] 03/01/2025 4:15 PM EDT Office Visit Dermatology at [place] [address] [facility] [place] [address] Marek Bonilla MD [address], [place] [address] documented as of this encounter Visit Diagnoses Diagnosis Neutropenia, unspecified type documented in this encounter Care Teams Reheater Relationship Specialty Start Date End Date Deborah Quiroga APRN PCP - General Family Medicine 03/24/16 02/04/23 documented as of this encounter
--- OUTSIDE RECORDS SUMMARY | 2024-06-06 14:03 | XMS_ITS | Encounter Summary ---
[place] [address] Care Team Providers Care Research Associate Professor Name Role Phone Junaid Deborah Shields APRN Primary Care Provider +1 [phone] Encounter Details Date Type Department Care Team (Late st Contact Info) Description 10/20/2016 11:20 AM EDT Office [place] [address] Alirio Esparza MD S/P AVR Social History [...] all of her postoperative tests done at [facility]. Her echo shows a well-seated valve. Her EF, for some reason, was read as in the 45% to 50% range. She had a normal EF to start. I think that will need to be repeated at [facility]. She has no perivalve leak. [...] should continue to see Dr. Burrell, her hand dry cleaner at [facility]. cc: Dr. Burrell documented in this encounter Plan of Treatment Upcoming Encounters Date Type Department Care Team (Late st Contact Info) Description 06/23/2024 2:00 PM EST Office Visit Hematology [place] [address] Markel Borjas MD [facility] HEMATOLOGY [place] [address] 11/02/2024 12:00 PM EDT Appointment [place] [address] 11/02/2024 1:00 PM EDT Office [place] [address] Magdalena Peralta MD [facility] DR [place] [address] 03/01/2025 4:15 PM EDT Office Visit Dermatology at [place] [address] [facility] [place] [address] Marek Bonilla MD [address], [place] [address] documented as of this encounter Visit Diagnoses Diagnosis S/P AVR Heart valve replaced by other means documented in this encounter Care Teams Research Associate Professor Relationship Specialty Start Date End Date Deborah Quiroga APRN PCP - General Family Medicine 03/24/16 02/04/23 documented as of this encounter
--- OUTSIDE RECORDS SUMMARY | 2024-06-06 14:03 | XMS_ITS | Encounter Summary ---
Author Organization [facility] Address [facility] [place] [address] Care Team Providers Care Medical Geneticist Name Role Phone Ashley Quirogazac Shields APRN Primary Care Provider +1 [phone] Encounter Details Date Type Department Care Team (Late st Contact Info) Description 11/11/2020 Refill Dermatology at [address] [phone] Taylor Malone, TOWEL SORTER Social History Tobacco Use Types Packs/Day Years [...] EST Office Visit [place]ematology [place] [address] Markel Borjas MD [facility] DR [place] [address] 11/02/2024 12:00 PM EDT [place]oint[place] [address] 11/02/2024 1:00 PM EDT Office [place] [address] Magdalena Peralta MD [facility] [place] [address] 03/01/2025 4:15 PM EDT Office Visit Dermatology at [place] [address] [place] [address] Marek Bonilla MD [address], [place] [address] documented as of this encounter Visit Diagnoses Not on filedocumented in this encounter Care Teams Medical Geneticist Relationship Specialty Start Date End Date Deborah Quiroga APRN PCP - General Family Medicine 03/24/16 02/04/23 documented as of this encounter
--- OUTSIDE RECORDS SUMMARY | 2024-06-06 14:03 | XMS_ITS | Encounter Summary ---
Author Organization [facility] Address [facility] [place] [address] Care Team Providers Care Home And Family Living Professor Name Role Phone Ashley Quirogazac Shields APRN Primary Care Provider +1 [phone] Encounter Details Date Type Department Care Team (Latest Contact Info) Description 06/22/2022 10:00 AM EST Office [place] [address] [facility] [place] [address] Raynaud's phenomenon without gangrene; Positive FRANCISCO (antinuclear [...] over radiocarpal or ulnocarpal joints. Hands: Normal stock supervisor and claw. SJC/TJC 0/0. Knees: Decreased [...] EST Office Visit Hematology and Oncology at [place] [phone] [facility] [address] [place] [address] 11/02/2024 12:00 PM EDT Appointment Pulmonology at [place] [address] 11/02/2024 1:00 PM EDT Office Visit Rheumatology at [place] [phone] [facility] [place] [address] 03/01/2025 4:15 PM EDT Office Visit Dermatology at [address] [place] [address] Marek Bonilla MD [address] [place] [address] RD, QU[address] A DERMATOLOGY [place], [place] [phone] documented as of this encounter Visit Diagnoses Diagnosis Raynaud's phenomenon without gangrene Positive FRANCISCO (antinuclear antibody) Other and unspecified nonspecific immunological findings Primary osteoarthritis involving multiple joints Cervical disc disorder at C6-C7 level with radiculopathy documented in this encounter Care Teams Home And Family Living Professor Relationship Specialty Start Date End Date Deborah Quiroga APRN PCP - General Family Medicine 03/24/16 02/04/23 documented as of this encounter
--- OUTSIDE RECORDS SUMMARY | 2024-06-06 14:03 | XMS_ITS | Encounter Summary ---
Author Organization [facility] Address [facility] [place] [address] Care Team Providers Care Carbonizer Tester Name Role Phone Ashley Quirogazac Shields APRN Primary Care Provider +1- [phone] Encounter Details Date Type Department Care Team (Late st Contact Info) Description 02/06/2020 Orders Only Hematology [place] [address] Markel Borjas MD [facility] HEMATOLOGY [place] [address] Neutropenia, unspecified type Social History Tobacco Use [...] EST Office Visit Hematology [place] [address] Markel Borjas MD [facility] HEMATOLOGY [place] [address] 11/02/2024 12:00 PM EDT Appointment [place] [address] 11/02/2024 1:00 PM EDT Office [place] [address] Magdalena Peralta MD [facility] [place] [address] 03/01/2025 4:15 PM EDT Office Visit Dermatology at [place] [address] [facility] [place] [address] Marek Bonilla MD [address], [address] [place] [address] documented as of this encounter Visit Diagnoses Diagnosis Neutropenia, unspecified type documented in this encounter Care Teams Carbonizer Tester Relationship Specialty Start Date End Date Deborah Quiroga APRN PCP - General Family Medicine 03/24/16 02/04/23 documented as of this encounter
--- OUTSIDE RECORDS SUMMARY | 2024-06-06 14:03 | XMS_ITS | Encounter Summary ---
Author Organization [facility] Address [facility] [place] [address] Care Team Providers Care Metal Drawer Name Role Phone Deborah Quiroga APRN Primary Care Provider +1- [phone] Encounter Details Date Type Department Care Team (Latest Contact Info) Description 10/14/2016 - 10/14/2016 11:59 PM EDT Hospital Encounter Radiology Library at [facility] [place] [address] Alirio Esparza MD Pain Discharge Disposition: Home [...] EST Office Visit Hematology [place] [address] Markel Borjas MD [facility] [address] HEMATOLOGY [place] [address] 11/02/2024 12:00 PM EDT Appointment [place] [address] 11/02/2024 1:00 PM EDT Office Visit [place] [address] Magdalena Peralta MD [facility] [place] [address] 03/01/2025 4:15 PM EDT Office Visit Dermatology at [place] [address] [facility] [place] [address] Marek Bonilla MD [address], [place] [address] documented as of this encounter Procedures Procedure Name Priority Date/Time Associated Diagnosis Comments FILM LIBRARY STORAGE ONLY DX CHEST Routine 10/14/2016 12:00 AM EDT Pain documented in this encounter Results * Film Library- Storage Only DX Chest (10/14/2016 12:00 AM EDT) Narrative SYLVIA - 10/14/2016 5:16 PM EDT This exam is for storage only and is auto-finalizing. Alirio Esparza MD IMG FILM LIBRARY OR DERABLES Performing Organization Address City/State/[facility] Co de Phone Number [place], [place] documented in this encounter Visit Diagnoses Diagnosis Pain Generalized pain documented in this encounter Care Teams Metal Drawer Relationship Specialty Start Date End Date Deborah Quiroga, LSAT INSTRUCTOR PCP - General Family Medicine 03/24/16 02/04/23 documented as of this encounter
--- OUTSIDE RECORDS SUMMARY | 2024-06-06 14:03 | XMS_ITS | Encounter Summary ---
[place] [address] Care Team Providers Care Ceramic Design Engineer Name Role Phone Ashley Quirogazac Shields APRN Primary Care Provider [phone] [phone] Reason for Visit * Reason Onset Date Comments Results 12/03/2016 Encounter Details Date Type Department Care Team (Late st Contact Info) Description 12/03/2016 Telephone Hematology [place] [address] Yudith Valentine RN Results Social [...] EDT RN received call from Maddy at [facility] reporting critical WBC at 1.61, and ANC of 0.5. She will fax the full results to this office for review nurse notified DR Borjas of above results documented in this encounter Plan of Treatment Upcoming Encounters Date Type Department Care Team (Late st Contact Info) Description 06/23/2024 2:00 PM EST Office Visit Hematology [place] [address] Markel Borjas MD [facility] [address] HEMATOLOGY [place] [address] 11/02/2024 12:00 PM EDT Appointment Pulmonology at [place] [phone] 11/02/2024 1:00 PM EDT Office [place] [address] Magdalena Peralta MD [facility] [place] [address] 03/01/2025 4:15 PM EDT Office Visit Dermatology at [place] [address] [facility] [place] [address] Marek Bonilla MD [address], [place] [address] documented as of this encounter Visit Diagnoses Not on filedocumented in this encounter Care Teams Ceramic Design Engineer Relationship Specialty Start Date End Date Deborah Quiroga APRN PCP - General Family Medicine 03/24/16 02/04/23 documented as of this encounter
--- OUTSIDE RECORDS SUMMARY | 2024-06-06 14:03 | XMS_ITS | Encounter Summary ---
Author Organization [facility] Address [facility] [place] [address] Care Team Providers Care Rigging Foreman Name Role Phone Junaid Deborah Shields APRN Primary Care Provider +1 [phone] Reason for Referral * Consultation (Routine) - Closed Specialty Diagnoses / Procedures Referred By Contac t Referred To Contact Neurology Diagnoses Neck pain Popeye Rogers MD [facility] [place] [address] Kyra Haas MD [facility] [address] [address] Referral ID Status Reason Start Date Expiration Date V isits Requested Visits Authorized [id number] Closed Consult, Test & Treat 06/29/2022 06/29/2023 1 1 Reason for Visit * Reason Comments Neck Pain Weak in both arms, p ain and tingling in arms and hands Encounter Details Date Type Department Care Team (Late st Contact Info) Description 06/29/2022 10:20 AM EST Office Visit [place] [address] Popeye Rogers MD [facility] [address] Neck pain Social History Tobacco Use Types [...] have EMG and nerve conduction studies in [place] that showed carpal tunnel syndrome. I do not have a copy of that report. documented in this encounter Plan of Treatment Upcoming Encounters Date Type Department Care Team (Late st Contact Info) Description 06/23/2024 2:00 PM EST Office Visit Hematology and Oncology at [place] [phone] Markel Borjas MD [facility] [address] [place] [address] 11/02/2024 12:00 PM EDT Appointment Pulmonology at [place] [address] 11/02/2024 1:00 PM EDT Office Visit Rheumatology at [place] [phone] Magdalena Peralta MD [facility] [place] [address] 03/01/2025 4:15 PM EDT Office Visit Dermatology at [place] [address] [facility] [place] [address] Marek Bonilla MD [address] [facility], [place] [address] Scheduled Referrals Name Type Priority Associated Diagnoses Orde r Schedule Referral to Neurology Outpatient Referral Routine Neck pain Ordered: 06/29/2022 documented as of this encounter Visit Diagnoses Diagnosis Neck pain Cervicalgia documented in this encounter Care Teams Rigging Foreman Relationship Specialty Start Date End Date Deborah Quiroga, CUSTOMER SERVICE SUPERVISOR PCP - General Family Medicine 03/24/16 02/04/23 documented as of this encounter
--- OUTSIDE RECORDS SUMMARY | 2024-06-06 14:03 | XMS_ITS | Encounter Summary ---
Author Organization [facility] Erika [facility] [address] Care Team Providers Care Green Chain Off Bearer Name Role Phone Ashley Quirogazac Shields APRN Primary Care Provider +1 [phone] Encounter Details Date Type Department Care Team [...] Visit Hematology and Oncology at [place] [phone] Markel Borjas MD [facility] [address] [place] [address] 11/02/2024 12:00 PM EDT Appointment [place] [address] 11/02/2024 1:00 PM EDT Office [place] [address] Magdalena Peralta MD [facility] [place] [address] 03/01/2025 4:15 PM EDT Office Visit Dermatology at [place] [address] [place] [address] Marek Bonilla MD [address], [address] [address] documented as of this encounter Visit Diagnoses Not on filedocumented in this encounter Care Teams Green Chain Off Bearer Relationship Specialty Start Date End Date Deborah Quiroga APRN PCP - General Family Medicine 03/24/16 02/04/23 documented as of this encounter
--- OUTSIDE RECORDS SUMMARY | 2024-06-06 14:04 | XMS_ITS | Encounter Summary ---
[place] [address] Care Team Providers Care Professor Of Graphic Design Name Role Phone Junaid, Deborah Shields APRN Primary Care Provider +[phone]- [phone] Reason for Visit * Reason Onset Date Comments Labs Only 09/16/2016 Encounter Details Date Type Department Care Team (Late st Contact Info) Description 09/16/2016 Telephone Hematology [place] [address] Alexandrea Greenwood, RN Labs Only Social History [...] 09/16/2016 11:09 AM EST Message received from corporation secretary: Purnima is having her Neulasta done today at [facility]. ??She is wondering if we want to do a CBC prior to the injection? [phone] Borjas: CBC is fine RN spoke with Swapna at [facility] who confirms they can draw CBC on pt today, RN faxed CBC w/diff to [facility] lab at [phone] RN relayed to pt that CBC ordered had been faxed to [facility], pt will have CBC drawn today prior to neulasta injection. documented in this encounter Plan of Treatment Upcoming Encounters Date Type Department Care Team (Late st Contact Info) Description 06/23/2024 2:00 PM EST Office Visit Hematology [place] [address] Markel Borjas MD [facility] [address] HEMATOLOGY [place] [address] 11/02/2024 12:00 PM EDT Appointment [place] [address] 11/02/2024 1:00 PM EDT Office [place] [address] Magdalena Peralta MD [facility] [place] [address] 03/01/2025 4:15 PM EDT Office Visit Dermatology at [address] [address] Marek Bonilla MD [address] [facility] A DERMATOLOGY [place], [place] [address] documented as of this encounter Results * [...] type documented in this encounter Care Teams Professor Of Graphic Design Relationship Specialty Start Date End Date Deborah Quiroga, OFFICE ASST PCP - General Family Medicine 03/24/16 02/04/23 documented as of this encounter
--- OUTSIDE RECORDS SUMMARY | 2024-06-06 14:04 | XMS_ITS | Encounter Summary ---
Author Organization [facility] Address [facility] [place] [address] Care Team Providers Care Tank Truck Engine Mechanic Name Role Phone Ashley Quirogazac Shields APRN Primary Care Provider +1 [phone] Encounter Details Date Type Department Care Team (Latest Contact Info) Description 08/18/2016 4:40 PM EST Laboratory Appointment Lab at [place] [phone] Aortic valve stenosis, unspecified etiology Social History [...] Visit Hematology and Oncology at [place] [phone] Markel Borjas MD [facility] [place] [address] 11/02/2024 12:00 PM EDT Appointment Pulmonology at [place] [phone] 11/02/2024 1:00 PM EDT Office Visit Rheumatology at [place] [phone] Magdalena Peralta MD [facility] [place] [address] 03/01/2025 4:15 PM EDT Office Visit Dermatology at [place] [address] [place] [address] Marek Bonilla MD [address], [place] [address] documented as of this encounter Procedures Procedure Name Priority Date/Time Associated Diagnosis Comments ABORH RECHECK STATUS Routine 08/18/2016 4:50 PM EST TYPE AND SCREEN, SDP (FUTURE SURGERY, COMMUNITY [...] Esparza MD [facility]LO[facility]ANK [facility] [place] [place] [address] * Antibody screen (08/18/2016 4:50 PM EST) Ab Screen Interp Negative [facility] Expires at 8420 on: 09/24/2016 [facility] Comment: Corrected from 09/17/16 12:00 [Unknown] on 09/09/16 02:32 by Shireen Treviño Blood specimen (specimen) 08/18/2016 4:50 PM EST 08/18/2016 5:11 PM EST Narrative Resulting Agency Comment Spec In Lab Alirio Esparza MD BLOOD BANK LAB [facility] ORTEGAROMERO Performing Organization Address [facility] Co de Phone Number [facility] [place] [address] * ABO/Rh Typing (08/18/2016 4:50 PM EST) Pathologist [facility] ABORH Type B Pos [facility] Blood specimen (specimen) 08/18/2016 4:50 PM EST 08/18/2016 5:11 PM EST Narrative Resulting Agency Comment Spec In Lab Alirio Esparza MD BLOOD BANK LAB [facility] ORTEGAROMERO Performing Organization Address [facility] de Phone Number [facility] [place] [address] * Basic Metabolic Panel (non-fasting) (08/18/2016 4:50 PM EST) [facility] Glucose 82 65 - 199 [...] the following links into your internet browser. [email or web address] Blood specimen (specimen) 08/18/2016 4:50 PM EST 08/18/2016 5:03 PM EST Narrative Resulting Agency Comment Spec In Lab Alirio Esparza MD CHEMISTRY ORDERABLE S Performing Organization Address City/State/[facility] Co de Phone Number [facility] [place] [address] documented in this encounter Visit Diagnoses Diagnosis Aortic valve stenosis, unspecified etiology documented in this encounter Care Teams Tank Truck Engine Mechanic Relationship Specialty Start Date End Date Deborah Quiroga APRN PCP - General Family Medicine 03/24/16 02/04/23 documented as of this encounter
--- OUTSIDE RECORDS SUMMARY | 2024-06-06 14:04 | XMS_ITS | Encounter Summary ---
Author Organization [facility] Address [facility] [place] [address] Care Team Providers Care Cutter Grind Tool Technician Name Role Phone Ashley Quirogazac Shields APRN Primary Care Provider [phone] Encounter Details Date Type Department Care Team (Late st Contact Info) Description 08/18/2016 Orders Only Cardiac Surgery at [place] [phone] Alirio Esparza MD Aortic valve stenosis, unspecified [...] EST Office Visit Hematology and Oncology at [place] [phone] Markel Borjas MD [facility] [address] [place] [address] 11/02/2024 12:00 PM EDT Appointment Pulmonology at [place] [phone] 11/02/2024 1:00 PM EDT Office Visit Rheumatology at [place] [phone] Magdalena Peralta MD [facility] [place] [address] 03/01/2025 4:15 PM EDT Office Visit Dermatology at [place] [address] [place] [address] Marek Bonilla MD [address], [place] DERMATOLOGY [place], [place] [id number] documented as of this encounter Results * Basic Metabolic Panel (non-fasting) (08/18/2016 4:50 PM EST) [facility] Glucose 82 65 - 199 mg/dL WHITE [...] the following links into your internet browser. [email or web address] Blood specimen (specimen) 08/18/2016 4:50 PM EST 08/18/2016 5:03 PM EST Narrative Resulting Agency Comment Spec In Lab Alirio Esparza MD CHEMISTRY ORDERABLE S [facility] [place] [id number] documented in this encounter Visit Diagnoses Diagnosis Aortic valve stenosis, unspecified etiology documented in this encounter Care Teams Cutter Grind Tool Technician Relationship Specialty Start Date End Date Deborah Quiroga APRN PCP - General Family Medicine 03/24/16 02/04/23 documented as of this encounter
--- OUTSIDE RECORDS SUMMARY | 2024-06-06 14:04 | XMS_ITS | Encounter Summary ---
Author Organization [facility] [place] [address] Care Team Providers Care Funeral Home Makeup Artist Name Role Phone Deborah Quiroga APRN Primary Care Provider [phone] Encounter Details Date Type Department Care Team (Late st Contact Info) Description 08/18/2016 4:20 PM EST Clinical Support Same Day at [facility] [place] [phone] Social History Tobacco Use Types Packs/Day Years [...] Office Visit Hematology [place] [address] Markel Borjas MD [facility] [address] HEMAT[place] [address] 11/02/2024 12:00 PM EDT Appointment Pulmonology at [place] [address] 11/02/2024 1:00 PM EDT Office Visit Rheumatology at [place] [phone] Magdalena Peralta MD [facility] [place] [address] 03/01/2025 4:15 PM EDT Office Visit Dermatology at [address] [place] [phone] Marek Bonilla MD [address], [place] [address] documented as of this encounter Visit Diagnoses Not on filedocumented in this encounter Care Teams Funeral Home Makeup Artist Relationship Specialty Start Date End Date Deborah Quiroga APRN PCP - General Family Medicine 03/24/16 02/04/23 documented as of this encounter
--- OUTSIDE RECORDS SUMMARY | 2024-06-06 14:04 | XMS_ITS | Encounter Summary ---
[place] [address] Care Team Providers Care Adjunct Physical Education Instructor Name Role Phone Junaid Deborah Shields APRN Primary Care Provider [phone] Reason for Visit * Auth/Cert Specialty Diagnoses / Procedures Referred By Crispin t Referred To Contact Diagnoses Aortic stenosis Procedures PRO REPLACE AORT VALV, PROSTH VALV @REPLACE AORTIC VALVE, OPEN, W\CPB, W\PROSTHETIC VALVE (WRVU 41.32) Referral ID Status Reason Start Date Expiration Date Visits Re quested Visits Authorized [id number] 1 1 Encounter Details Date Type Department Care Team (Late st Contact Info) Description 09/21/2016 7:30 AM EST - 09/21/2016 12:04 PM EST Surgery [place] [address] Alirio Esparza MD @REPLACE AORTIC VALVE, OPEN, [...] in 1-2 weeks. Patient to follow-up with Computer Graphic Designer, Dr. Antelmo Burrell, in two weeks. Patient to follow-up with Cardiac Surgery, Dr. Alirio Esparza, to be scheduled for before 10/19/2016, with CXR, EKG, and Echo. Inpatient Provider Contact Information: [facility] Section of Cardiac Surgery [facility] [place] [address] FAX [phone] Discharge Diagnoses (Hospital Problems) Primary Diagnoses: Secondary [...] 41.32) performed by Alirio Esparza MD at [facility] MAIN OR ??? Pro aortoplas for supravalv sten N/A 09/21/2016 @AORTOPLASTY FOR SUPRAVALVULAR STENOSIS (WRVU 29.33) performed by Alirio Esparza MD at [facility] MAIN [...] Purnima Thacker was admitted to [facility] on 09/21/2016 via the Same Day [...] Alirio Esparza and/or the Cardiac Surgery Physician Bead Forming Machine Set Up Operator Team may be reached at . Antibiotic prophylaxis: You will need to take antibiotics prior to many invasive tests and treatments, such as dental cleaning, which should be done every 6 months. Your primary care physician or your dentist can prescribe this medication. Please refer to the card with the [place] [employer] Guidelines for more information. You have been provided with 3 copies of this card. Keep one for your self. Give one to your primary care physician and one to your dentist. Please refer to the [place] [employer] Guidelines for more information. Good [...] Dr. Alirio Jones. You may use a Cornlea Track or treadmill but avoid any pulling [...] should resume a low fat, low cholesterol, [place] [employer] Diet. Driving: No driving until [...] the outpatient Phase 2 Cardiac Rehabilitation at [facility]. The patient agrees to a referral to this program. The referral will be sent at discharge and the patient should be contacted by the program within 1- 2 weeks from discharge. Future Appointments and Orders Future Appointments Provider Department Dept Phone 11/20/2016 11:30 AM Markel Borjas MD [facility] [phone] Future Orders Complete By Expires Echocardiogram Transthoracic([facility]) [UTI583 Custom] 10/18/2016 (Approximate) 09/18/2017 Process Instructions: If the Echocardiogram is to be PERFORMED in a DH location other than [place]--STOP and order [id number], Echocardiogram South/External. Scheduling Instructions: Questions: Is a Bubble Study requested?: No Does the patient have Congenital Heart Disease?: No Does patient require sedation?: None GA rationale: Should this service be billed to the research sponsor?: EKG 12 Lead [EKG1 Custom] 10/18/2016 (Approximate) 09/25/2017 Process Instructions: Scheduling Instructions: Questions: Which DH location will this be performed?: [place] Is a rhythm strip needed?: No If EKG Reason is Pre-op Evaluation, indicate diagnosis for surgery.: Should this service be billed to the research sponsor?: XR Chest PA & Lateral (Generic) [[id number] Custom] 10/18/2016 (Approximate) 09/25/2017 Process Instructions: Scheduling Instructions: Questions: Where will study be performed?: [facility]- Radiology Portable exam?: No Reason for exam and clinical history: s/p AVReplacement, patch annuloplasty 1 month f/u Other pertinent information: Stat read required?: Date of injury if applicable: Requested Time: Referral to Cardiac Rehab [ACD890 Custom] As directed Process Instructions: If no progress note charted, please enter Clinical details in comments. Scheduling Instructions: Questions: My question or request is: s/p AVR. Cardiac rehab at [facility] Referral to Home Health - at DISCHARGE [AKV1596 CPT(R)] As directed Process Instructions: Scheduling Instructions: Comments: DOCUMENTATION FOR VNA SERVICES (INCLUDING THOSE PATIENTS WITH MEDICARE COVERAGE REQUIRING HOME VNA SERVICES AND/OR HOSPICE SERVICES) PATIENT'S LOCATION: Purnimakary Gallego[address] [address] (home) No relevant phone numbers on file. Ski Top Trimmer's Name: self In discussion with the attending physician, it is certified that this patient is under their care and that they, or a Nurse Practitioner, or Physician Bead Forming Machine Set Up Operator who is working directly with them, [...] for services as follows: HOME HEALTH AGENCY: [facility] PHONE: [phone] FAX: [phone] RN orders: Cardiopulmonary assessment, incisional assessment, assess [...] issues please call the Cardiac SurgeryOffice at [phone] FOR MEDICARE ONLY: In discussion with the [...] AFTER 09/30/16 Signed: Crispin Aranda PA-C 09/25/2016 [facility] Section of Cardiac Surgery [facility] [place] [address] FAX [phone] Date: 09/25/2016 CC: ANURAG Alford Caryn E, APRN [address] [place] [address] documented in this encounter Discharge Instructions * [...] Alirio Esparza and/or the Cardiac Surgery Physician Bead Forming Machine Set Up Operator Team may be reached at . Antibiotic prophylaxis: You will need to take antibiotics prior to many invasive tests and treatments, such as dental cleaning, which should be done every 6 months. Your primary care physician or your dentist can prescribe this medication. Please refer to the card with the [place] Heart [employer] Guidelines for more information. You have been provided with 3 copies of this card. Keep one for your self. Give one to your primary care physician and one to your dentist. Please refer to the [place] Heart Association Guidelines for more information. Good [...] Dr. Alirio Jones. You may use a Cornlea Track or treadmill but avoid any pulling [...] should resume a low fat, low cholesterol, [place] [employer] Diet. Driving: No driving until [...] the outpatient Phase 2 Cardiac Rehabilitation at [facility]. The patient agrees to [...] PM EST Cardiac Surgery Progress Note: ID: [id number] S/p AVR, patch aortoplasty POD#2. PMH of [...] Gas) No results found for: PHART, PO2ART, DLC2NCC Assessment/Plan: TPW out this am. (+) BM. [...] Signed: Crispin Aranda PA-C 09/24/2016 Team pager: [phone]; [phone] after 5pm [facility] Section of Cardiac Surgery * Leonor Henson S, AIRLINE MANAGERIAL SUPERVISOR - 09/23/2016 10:48 AM EST Cardiac Surgery Progress Note: ID: [id number] s/p AVR, patch aortoplasty POD#2. PMH of [...] Gas) No results found for: PHART, PO2ART, WGT0MHI Assessment/Plan: s/p AVR, patch aortoplasty POD#2. PMH of Neutropenia, HLD, HTN, Depression, obesity, . Transferred from [facility] yesterday and doing well. Pathway. [...] rounds. Signed: Leonor Henson APRN [facility] Section of Cardiac Surgery Date: 09/23/2016 * Nico Palacios PA - 09/22/2016 9:56 AM EST Cardiac Surgery Progress Note: ID: [id number] s/p AVR, patch aortoplasty POD#1. PMH of [...] NT, ND, soft. Ext: Moves all extremities. [place], well perfused. Incisions: C/D/I Tubes/Lines/Drains: PIV, leanna, [...] on rounds. Signed: EKATERINA KIM [facility] Section of Cardiac Surgery Date: 09/22/2016 [...] Outcome (s) achieved Date Met: 09/25/16 09/25/16 4488 Coping/Psychosocial Plan Of Care Reviewed With patient [...] health, home with outpatient services Lalitha Cohen [facility] Pager: [phone] Inpatient Physical Therapy Patient status, treatment interventions, and goals discussed with student. I am in agreement with all details and associated flowsheet rows as documented and was present for all aspects of the patient treatment session. Nery Jaramillo, CANDY Pager [phone] Problem: Acute Rehab Services Goal & Intervention Plan Goal: Bed Mobility Goal Stand Alone Therapy Goal Outcome: Ongoing (Interventions Implemented as Appropriate) 09/22/16 1611 09/25/16 0947 Bed Mobility Goal Bed Mobility Goal, Time to Achieve 4 days -- Bed Mobility Goal, Activity Type scoot/bridge;supine to sit/sit to supine -- Bed Mobility Goal, [place]on Level independent -- Bed Mobility Goal, Additional [...] Achieve 4 days -- Gait Training Goal, [place]on Level independent -- Gait Training Goal, Distance [...] assist, home with home health Lalitha Cohen [facility] Pager: [phone] Inpatient Physical Therapy Patient status, treatment interventions, and goals discussed with student. I am in agreement with all details and associated flowsheet rows as documented and was present for all aspects of the patient treatment session. Nery Jaramillo, FLOOD CONTROL ENGINEER Pager [phone] Problem: Acute Rehab Services Goal & Intervention Plan Goal: Bed Mobility Goal Stand Alone Therapy Goal Outcome: Ongoing (Interventions Implemented as Appropriate) 09/22/16161009/23/161411 Bed Mobility Goal Bed Mobility Goal, Time to Achieve 4 days -- Bed Mobility Goal, Activity Type scoot/bridge;supine to sit/sit to supine -- Bed Mobility Goal, Bur[place]on Level independent -- Bed Mobility Goal, Additional [...] Achieve 4 days -- Gait Training Goal, [place] Level independent -- Gait Training Goal, Distance [...] days -- Transfer Training Goal, Activity Type saa-gg-fmwln/efgtu-ve-hmw;uli-ml-gnzvs/yodyh-hq-kcu -- Transfer Train Goal, [place]on Level independent -- Transfer Training Goal, Additional Goal abides sternal precautions -- Transfer Training Goal, Outcome -- goal met * Consult Note - Jana Crenshaw RN - 09/23/2016 9:41 AM EST [facility] [place] CARDIAC [place]ILITATION Purnima Thacker was seen today regarding participation in the outpatient Phase 2 Cardiac Rehabilitation at [facility]. The patient agrees to [...] Another Service: (cardiac rehab) NICOLE HERNANDEZ, PT Pager:[phone] Inpatient Physical Therapy Problem: Acute Rehab Services Goal & Intervention Plan Goal: Bed Mobility Goal Stand Alone Therapy Goal Outcome: Ongoing (Interventions Implemented as Appropriate) 09/22/161610 Bed Mobility Goal Bed Mobility Goal, Time to Achieve 4 days Bed Mobility Goal, Activity Type scoot/bridge;supine to sit/sit to supine Bed Mobility Goal, Bur[place]on Level independent Bed Mobility Goal, Additional Goal able to abide sternal precautions during transfers Goal: Gait Training Goal Stand Alone Therapy Goal Outcome: Ongoing (Interventions Implemented as Appropriate) 09/22/161610 Gait Training Goal Gait Training Goal, Date Established 09/22/16 Gait Training Goal, Time to Achieve 4 days Gait Training Goal, Bur[place]on Level independent Gait Training Goal, Distance to Achieve ascend and descends 2 steps independently Goal: Goal Transfer Training Stand Alone Therapy Goal Outcome: Ongoing (Interventions Implemented as Appropriate) 09/22/161610 Goal Transfer Training Transfer Training Goal, Time to Achieve 4 days Transfer Training Goal, Activity Type peu-es-knkko/mmkyq-fa-dji;dcl-hx-sjzvs/pfxoy-dj-qmo Transfer Train Goal, Bur[place]on Level independent Transfer Training Goal, Additional Goal [...] of completing AD's at home, chooses her ybpxpj-oa-ssy, Martha Thacker (home) for her DPOAH, 2nd choice in friend, Nitesh Rad, [place], [place] Current Coping/Education/Information Needs: patient sitting up [...] close by, Rashad & Raymond, and her jzvhcv-em-izz Martha Thacker who she has chosen to be her DPOAH. Also has a friend Nitesh Leroy who lives in [place], [place], also her DPOAH choice. Behavioral Health History: none on file in e[facility] Substance Use/Abuse: none on file in e[facility] Other Pertinent/Service Specific Information: none Health/Prescription Coverage: Primary Insurance: [employer] Secondary Insurance: none Prescription Coverage: yes, per patient no issues Preferred Pharmacy: ?? Other: none Primary Care Provider: Deborah Quiroga, AIRLINE MANAGERIAL SUPERVISOR [phone] Patient/Caregiver Goals of Treatment: per medical team recommendations at discharge for CT surgery Potential Needs for Transition of Care: Rehab/SNF: TBD Home Health: TBD DME: no Dialysis: no Community Resources: non3 Transportation: ride home with a friend Other: none Anticipated Barriers to Discharge/Special Considerations: none anticipated at this time Plan: patient will need VNA services at discharge. The patient/outside medical sales representative has been provided a list of Home Health Agencies/DME vendors which servetheir preferred geographic area. A letter describing our affiliations was reviewed with them and they were educated about their right to choose where referrals are placed. Patient requests referral to: [facility]. PHONE: [phone] FAX: [phone] Expected date of discharge: Fri/Sat? CM called VNA to confirm referral, talked with VALDO Bunn/intake who stated she was familiar w/patient & would monitor her progress through curaspan. Referral routed to the Supervisor Particleboard for matching with agency/vendor and to provide any required information. A member of the Care Management team will continue to monitor progress, follow for continuity of care and assist with transition of care planning. Amanda Moreno RN Pager: [phone] * Op Note - Alirio Esparza MD - 09/21/2016 12:53 PM EST 09/23/2016 Purnima Thacker [id number] Preoperative Diagnosis: Symptomatic aortic stenosis Postoperative Diagnosis: Symptomatic aortic stenosis Procedure: Aortic valve replacement: Bovine Pericardial 25 mm Surgeon: Alirio Esparza M.D. Bead Forming Machine Set Up Operator: Philip BALL Anesthesia: General endotracheal anesthesia [...] applied. The patient was transported to the [facility] on levo. All counts were [...] Operative Note Patient Name: Purnima Thacker : [id number] MR#: [id number] Case Date: 09/21/2016 Surgeon: Surgeon(s) and Role: * Alirio Esparza MD - Primary * Nico Palacios PA - Physician Bead Forming Machine Set Up Operator Preoperative diagnosis: Postoperative diagnosis: Procedure(s) (LRB): [...] EST Office Visit Hematology [place] [address] Markel Borjas MD [facility] [address] HEMATOLOGY [place] [address] 11/02/2024 12:00 PM EDT Appointment [place] [address] 11/02/2024 1:00 PM EDT Office [place] [phone] Magdalena Peralta MD [facility] [place] [address] 03/01/2025 4:15 PM EDT Office Visit Dermatology at [address] [place] [phone] Marek Bonilla MD [address], [place] [address] Scheduled Orders Name Type Priority Associated Diagnoses [...] IMPLANTABLE DEVICES SCAN 09/26/2016 12:00 AM EST EARLY CHILDHOOD SERVICES COORDINATOR SCAN 09/26/2016 12:00 AM EST POTASSIUM [...] Routine 09/22/2016 4:00 AM EST CARDIAC ENZYMES ([facility] [place]/[facility]P) Routine 09/22/2016 4:00 AM EST CREATININE Routine [...] SCAN EXT O RDR/RSLT * SCAN DOC: EARLY CHILDHOOD SERVICES COORDINATOR (09/26/2016 12:00 AM EST) Anatomical Region Laterality Modality Other Narrative 09/26/2016 12:00 AM EST Ordered by an unspecified provider. Scanning Provider MEDIA MGR SCAN EXT O RDR/RSLT * Potassium (09/25/2016 4:32 AM EST) Pathologist [facility] Potassium 4.4 3.5 - 5.0 mmol/L [facility] [...] CHEMISTRY ORDERABLE S [facility] [place] [address] * (ABNORMAL) Differential, Automated (09/24/2016 9:56 AM EST) Pathologist [facility] Neutrophil % 76.8 % [facility] Neutrophil Absolute 7.79(H) 1.70 - 6.10 x10(3)/mc L [facility] Lymph % 11.1 % [facility] Lymphocytes Abs 1.1 0.9 - 3.2 x10(3)/mc L [facility] Monocyte % 8.5 % [facility] Monocyte Abs 0.9 0.3 - 0.9 x10(3)/mc L [facility] Eos % 0.5 % [facility] Eosinophils Abs 0.0 0.0 - 0.4 x10(3)/mc L [facility] Basophil % 0.2 % [facility] Co de Phone Number [facility] [place] [address] * (ABNORMAL) Hemogram (09/24/2016 9:56 AM EST) White Blood Cell 10.1(H) 4.0 - 9.5 x10(3)/ L [facility] [...] Platelet 141(L) 145 - 357 x10(3)/ L [facility] RDW Standard [...] HEMATOLOGY ORDERABL ES [facility] [place] [address] * (ABNORMAL) Basic Metabolic Panel (non-fasting) (09/24/2016 [...] the following links into your internet browser. [email or web address] Blood specimen (specimen) 09/24/2016 9:56 AM EST 09/24/2016 10:04 AM EST Narrative Resulting Agency Comment Spec In Lab Alirio Esparza MD CHEMISTRY ORDERABLE S [facility] [place] [address] * XR Chest PA & Lateral (Generic) [...] CHEMISTRY ORDERABLE S Performing Organization Address City/[facility]/ZIP Co de Phone Number [facility] [place] [address] * POCT Glucose (09/22/2016 8:17 AM EST) Glucose, POC 131 65 - 199 mg/dL [facility] Comment: Supplemental ranges: <140 mg/dL before meals <180 mg/dL all other times of the day Blood specimen (specimen) 09/22/2016 8:17 AM EST 09/22/2016 8:17 AM EST Alirio Esparza MD POINT OF CARE TEST ORDERABLES [facility] [place] [address] * POCT Glucose (09/22/2016 4:01 AM EST) Glucose, POC 135 65 - 199 mg/dL [facility] Comment: Supplemental ranges: <140 mg/dL before meals <180 mg/dL all other times of the day Blood specimen (specimen) 09/22/2016 4:01 AM EST 09/22/2016 4:01 AM EST Alirio Esparza MD POINT OF CARE TEST ORDERABLES Performing Organization Address [facility] Co de Phone Number [facility] [place] [address] * Scan, Peripheral Blood (09/22/2016 4:00 AM EST) Plat estimate Normal [facility] RBC Morphology Abnormal [facility] Macrocyte 1-5 /HPF [facility] Plat, Giant Less than 1 /HPF [facility] Blood specimen (specimen) 09/22/2016 4:00 AM EST 09/22/2016 4:34 AM EST Narrative Resulting Agency Comment Spec In Lab Alirio Esparza MD HEMATOLOGY ORDERABL ES Performing Organization Address [facility] Phone Number [facility] [place] [address] * Electrolytes panel (09/22/2016 4:00 AM EST) Sodium 145 135 - 145 mmol/L [place] [...] S Performing Organization Address [facility]/[place] [address] * (ABNORMAL) Differential, Automated (09/22/2016 4:00 AM EST) Pathologist [facility] Neutrophil % 70.9 % [facility] Neutrophil Absolute 5.33 1.70 - 6.10 x10(3)/ L [facility] Lymph % 9.1 % [facility] Lymphocytes Abs 0.7(L) 0.9 - 3.2 x10(3)/ L [facility] Monocyte % 18.0 % [facility] Monocyte Abs 1.4(H) 0.3 - 0.9 x10(3)/ L [facility] Eos % 0.0 % [facility] Eosinophils Abs 0.0 0.0 - 0.4 x10(3)/[facility] Basophil % 0.1 % [facility] Baso Absolute 0.0 0.0 - 0.1 x10(3)/ L [facility] Immature Gran % 1.90 % [facility] Comment: Immature granulocytes(IG's)percentage and absolute count will include metamyelocytes, myelocytes, and promyelocytes. Blood smears from CBCs yielding IG's will be scanned manually for concordance. If this scan disagrees with the automated IG or if promyelocytes are noted, a manual differential will be performed. Immature Gran Absolute 0.14(H) 0.00 - 0.04 x10(3)/ L [facility] Blood specimen (specimen) 09/22/2016 4:00 AM EST 09/22/2016 4:34 AM EST Narrative Resulting Agency Comment Spec In Lab Alirio Esparza MD HEMATOLOGY ORDERABL ES [facility] [place] [address] * (ABNORMAL) Hemogram (09/22/2016 4:00 AM EST) [facility] White Blood Cell 7.5 4.0 - 9.5 x10(3)/mc L [facility] Red Blood Cell 2.93(L) 4.00 - 5.21 x10(6)/mc L [facility] Hemoglobin 9.2(L) 11.7 - 15.5 gm/dL [facility] Hematocrit 28.0(L) 35.7 - 45.8 % [facility] Mean Cell Volume 95.6(H) 82.6 - 94.4 fL [facility] Mean Cell Hemoglobin 31.4 27.1 - 32.0 pg [facility] Mean Cell Hemoglobin Concentration 32.9 31.7 - 35.0 gm/dL [facility] Platelet 161 145 - 357 x10(3)/[facility] RDW Standard Deviation 44.0 37.0 - 46.0 fL [facility] RDW coefficient of variation 12.6 11.5 - 14.1 % [facility] Mean Platelet Volume 9.3 7.6 - 12.9 fL [facility] NRBC% auto 0.3 % [facility] NRBC Absolute 0.020(H) 0.000 - 0.000 x10(3)/ L [facility] Blood specimen (specimen) 09/22/2016 4:00 AM EST 09/22/2016 4:34 AM EST Narrative Resulting Agency Comment Spec In Lab Alirio Esparza MD HEMATOLOGY ORDERABL ES [facility] [place] [address] * (ABNORMAL) Cardiac Enzymes (09/22/2016 4:00 AM EST) [facility] Troponin-T 0.13(H) <=0.03 ng/mL [facility] Comment: 0.03 ng/mL: Represents the 99th percentile upper reference limit for normals. >0.03 ng/mL: Elevated cardiac troponin T level indicative of myocardial damage. Diagnosis of acute, evolving or recent ME requires a typical rise and gradual fall [...] consensus document of the Joint Society of Cardiology/[place] College of Cardiology Committee for the redefinition of myocardial infarction. ??Journal of the [place] College of Cardiology 2000; 36: 959-969] Creatine Kinase 338(H) 0 - 160 unit/L [facility] Blood specimen (specimen) 09/22/2016 4:00 AM EST 09/22/2016 4:34 AM EST Narrative Resulting Agency Comment Spec In Lab Alirio Esparza MD CHEMISTRY ORDERABLE S [facility] [place] [id number] * (ABNORMAL) Glucose, fasting (09/22/2016 4:00 AM [...] of Diabetes Mellitus, Position Statement from the [place] Diabetes Association. ??Diabetes Care, Volume 33, Supplement 1, Aug 2009 Blood specimen (specimen) 09/22/2016 4:00 AM EST 09/22/2016 4:34 AM EST Narrative Resulting Agency Comment Spec In Lab Alirio Esparza MD CHEMISTRY ORDERABLE S Performing Organization Address [facility] Co de Phone Number [facility] [place] [address] * (ABNORMAL) Creatinine (09/22/2016 4:00 AM EST) [...] the following links into your internet browser. [email or web address] Blood specimen (specimen) 09/22/2016 4:00 AM EST 09/22/2016 4:34 AM EST Narrative Resulting Agency Comment Spec In Lab Alirio Esparza MD CHEMISTRY ORDERABLE S Performing Organization Address [facility] Co de Phone Number [facility] [place] [address] * BUN (09/22/2016 4:00 AM EST) Blood Urea Nitrogen 10 8 - 18 mg/dL [facility] Blood specimen (specimen) 09/22/2016 4:00 AM EST 09/22/2016 4:34 AM EST Narrative Resulting Agency Comment Spec In Lab Alirio Esparza MD CHEMISTRY ORDERABLE S Performing Organization Address [facility]/ZIP Co de Phone Number [facility] [place] [address] * POCT Glucose (09/21/2016 9:59 PM EST) Glucose, POC 146 65 - 199 mg/dL [facility] Comment: Supplemental ranges: <140 mg/dL before meals <180 mg/dL all other times of the day Blood specimen (specimen) 09/21/2016 9:59 PM EST 09/21/2016 9:59 PM EST Alirio Esparza MD POINT OF CARE TEST ORDERABLES Performing Organization Address [facility] Co de Phone Number [facility] [place] [address] * POCT Glucose (09/21/2016 7:26 PM EST) Glucose, POC 152 65 - 199 mg/dL [facility] Comment: Supplemental ranges: <140 mg/dL before meals <180 mg/dL all other times of the day Blood specimen (specimen) 09/21/2016 7:26 PM EST 09/21/2016 7:26 PM EST Alirio Esparza MD POINT OF CARE TEST ORDERABLES Performing Organization Address [facility] Co de Phone Number [facility] [place] [address] * POCT Glucose (09/21/2016 6:00 PM EST) Glucose, POC 146 65 - 199 mg/dL [facility] Comment: Supplemental ranges: <140 mg/dL before meals <180 mg/dL all other times of the day Blood specimen (specimen) 09/21/2016 6:00 PM EST 09/21/2016 6:00 PM EST Alirio Esparza MD POINT OF CARE TEST ORDERABLES [facility] [place] [address] * (ABNORMAL) BLOOD GAS 2 ARTERIAL (09/21/2016 [...] [facility] FIO2 Art 40 % [facility] PF Ratio Art 270 [facility] Blood specimen (specimen) 09/21/2016 4:42 PM EST 09/21/2016 4:42 PM EST Alirio Esparza MD POINT OF CARE TEST ORDERABLES Performing Organization Address City/[facility]/ZIP Co de Phone Number [facility] [place] [address] * POCT Glucose (09/21/2016 4:07 PM EST) Glucose, POC 150 65 - 199 mg/dL [facility] Comment: Supplemental ranges: <140 mg/dL before meals <180 mg/dL all other times of the day Blood specimen (specimen) 09/21/2016 4:07 PM EST 09/21/2016 4:07 PM EST Alirio Esparza MD POINT OF CARE TEST ORDERABLES Performing Organization Address [facility]/ZIP Co de Phone Number [facility] [place] [address] * (ABNORMAL) Hemoglobin (09/21/2016 4:05 PM EST) Hemoglobin 9.9(L) 11.7 - 15.5 gm/dL [facility] Blood specimen (specimen) 09/21/2016 4:05 PM EST 09/21/2016 4:20 PM EST Narrative Resulting Agency Comment Spec In Lab Alirio Esparza MD HEMATOLOGY ORDERABL ES Performing Organization Address City/[facility] Co de Phone Number [facility] [place] [address] * Potassium (09/21/2016 4:05 PM EST) Potassium 4.6 3.5 - 5.0 mmol/L [facility] [...] S Performing Organization Address [facility] Co de Phone Number [facility] [place] [address] * POCT Glucose (09/21/2016 2:52 PM EST) Glucose, POC 117 65 - 199 mg/dL [facility] Comment: Supplemental ranges: <140 mg/dL before meals <180 mg/dL all other times of the day Blood specimen (specimen) 09/21/2016 2:52 PM EST 09/21/2016 2:52 PM EST Alirio Esparza MD POINT OF CARE TEST ORDERABLES Performing Organization Address [facility] Co de Phone Number [facility] [place] [address] * POCT Glucose (09/21/2016 1:51 PM EST) Glucose, POC 108 65 - 199 mg/dL [facility] Comment: Supplemental ranges: <140 mg/dL before meals <180 mg/dL all other times of the day Blood specimen (specimen) 09/21/2016 1:51 PM EST 09/21/2016 1:51 PM EST Alirio Esparza MD POINT OF CARE TEST ORDERABLES Performing Organization Address [facility] Co de Phone Number [facility] [place] [address] * POCT Glucose (09/21/2016 12:54 PM EST) Glucose, POC 128 65 - 199 mg/dL [facility] Comment: Supplemental ranges: <140 mg/dL before meals <180 mg/dL all other times of the day Blood specimen (specimen) 09/21/2016 12:54 PM EST 09/21/2016 12:54 PM EST Alirio Esparza MD POINT OF CARE TEST ORDERABLES Performing Organization Address [facility] Co de Phone Number [facility] [place] [address] * EKG 12 Lead (09/21/2016 12:26 PM EST) Ventricular rate 87 BPM MUSE SYSTEM Atrial Rate 87 BPM MUSE SYSTEM P-R Interval 256 ms MUSE SYSTEM QRS Duration 90 ms MUSE SYSTEM Q-T Interval 406 ms MUSE SYSTEM QTC Calculated (Bezet) 488 ms MUSE SYSTEM Calculated P [place] 24 degrees MUSE SYSTEM Calculated R [place] 21 degrees MUSE SYSTEM Calculated T [place] -5 degrees MUSE SYSTEM INTERPRETATION Sinus rhythm [...] Esparza MD ECG ORDERABLES Performing Organization Address [facility] Phone Number MUSE SYSTEM * XR Chest [...] course of the esophagus and below the [id number]. There is a right IJ PA catheter [...] the course of theesophagus and below the [id number]. There is a right IJ PA catheter [...] [facility] FIO2 Art 100 % [facility] PF Ratio Art 356 [facility] Blood specimen (specimen) 09/21/2016 12:20 PM EST 09/21/2016 12:20 PM EST Alirio Esparza MD POINT OF CARE TEST ORDERABLES Performing Organization Address City/State/[facility] Co de Phone Number [facility] [place] [address] * (ABNORMAL) BLOOD GAS 2 ARTERIAL (09/21/2016 [...] [facility] FIO2 Art 95 % [facility] Flow Art 0.7 LPM [facility] PF Ratio Art 313 [facility] Temp Art 36.7 Celsius [facility] Blood specimen (specimen) 09/21/2016 10:54 AM EST 09/21/2016 10:54 AM EST Alirio Esparza MD POINT OF CARE TEST ORDERABLES [facility] [place] [address] * Thrombin time (09/21/2016 10:50 AM EST) [...] MD HEMATOLOGY ORDERABLE S Performing Organization Address [facility] Co de Phone Number [facility] [place] [address] * Fibrinogen (09/21/2016 10:50 AM EST) [facility] Signature Fibrinogen 228 180 - 510 mg/dL [facility] [...] MD HEMATOLOGY ORDERABLE S Performing Organization Address [facility] Co de Phone Number [facility] [place] [address] * APTT (09/21/2016 10:50 AM EST) Partial [...] MD HEMATOLOGY ORDERABLE S Performing Organization Address [facility] Co de Phone Number [facility] [place] [address] * (ABNORMAL) Prothrombin Time (09/21/2016 10:50 AM [...] MD HEMATOLOGY ORDERABLE S Performing Organization Address [facility] Co de Phone Number [facility] [place] [address] * (ABNORMAL) Hemogram (09/21/2016 10:50 AM EST) [...] HEMATOLOGY ORDERABLE S Performing Organization Address City/[facility]/ZIP Co de Phone Number [facility] [place] [address] * Prepare Platelets, Apheresis (09/21/2016 10:30 AM EST) Pathologist [facility] Dispensed? Yes [facility] Blood specimen (specimen) 09/21/2016 10:30 AM EST 09/21/2016 10:28 AM EST Alirio Esparza MD BLOOD BANK PRODUCT ORDERABLES Performing Organization Address City/[facility]/ZIP Co de Phone Number [facility] [place] [address] * (ABNORMAL) BLOOD GAS 2 ARTERIAL (09/21/2016 10:05 AM EST) pH, Arterial 7.33(L) 7.35 - 7.45 [facility] PCO2, Arterial 54(Critic al) 35 - 45 mmHg [facility] Comment:Noted by reed or wind instrument tuner. PO2, Arterial 218(H) 85 - [...] [facility] Comment: Noted by reed or wind instrument tuner. Please note: Patients with WBC [...] [facility] Temp Art 37.0 Celsius [facility] Blood specimen (specimen) 09/21/2016 10:05 AM EST 09/21/2016 10:05 AM EST Alirio Esparza MD POINT OF CARE TEST ORDERABLES [facility] [place] [address] * (ABNORMAL) BLOOD GAS 2 ARTERIAL (09/21/2016 9:44 AM EST) pH, Arterial 7.22(Criti gabrielle) 7.35 - 7.45 [facility] Comment:Noted by reed or wind instrument tuner. PCO2, Arterial 70(Critica l) 35 - 45 mmHg [facility] Comment:Noted by reed or wind instrument tuner. PO2, Arterial 224(H) 85 - [...] CARE TEST ORDERABLES Performing Organization Address City/[facility] Co de Phone Number [facility] [place] [address] * (ABNORMAL) Hemoglobin (09/21/2016 9:42 AM EST) Hemoglobin 7.2(L) 11.7 - 15.5 gm/dL [facility] Blood specimen (specimen) 09/21/2016 9:42 AM EST 09/21/2016 9:51 AM EST Narrative Resulting Agency Comment Spec In Lab Alirio Esparza MD HEMATOLOGY ORDERABL ES Performing Organization Address City/[facility] Co de Phone Number [facility] [place] [address] * Platelet count (09/21/2016 9:42 AM EST) Platelet 159 145 - 357 x10(3)/mc L [facility] Immature Plt % 1.6 0.0 - 7.4 % [facility] Comment: Limitation of the Immature Platelet Fraction (IPF)-May be less reliable when the platelet count is less than 37c498/uL due to statistical imprecision. The IPF value [...] in a decreased state of production. References: [employer] The Clinical Value of the Immature Platelet Fraction (IPF) in Cell Recovery Document Number 10-1143 12/2010 [employer] The Role of the Immature Platelet Fraction (IPF) in the Differential Diagnosis of Thrombocytopenia, Document MKT-[id number] V012/11/13 P012/13 Blood specimen (specimen) 09/21/2016 9:42 AM EST 09/21/2016 9:51 AM EST Narrative Resulting Agency Comment Spec In Lab Alirio Esparza MD HEMATOLOGY ORDERABL ES Performing Organization Address [facility] de Phone Number [facility] [place] [address] * (ABNORMAL) Hematocrit (09/21/2016 9:42 AM EST) [...] MD HEMATOLOGY ORDERABL ES Performing Organization Address [facility] Phone Number [facility] [place] [address] * Fibrinogen (09/21/2016 9:42 AM EST) Fibrinogen [...] ES Performing Organization Address [facility] Co de Phone Number [facility] [place] [address] * (ABNORMAL) BLOOD GAS 2 ARTERIAL (09/21/2016 [...] [facility] Temp Art 37.0 Celsius [facility] Blood specimen (specimen) 09/21/2016 9:10 AM EST 09/21/2016 9:10 AM EST Alirio Esparza MD POINT OF CARE TEST ORDERABLES [facility] [place] [address] * Surgical Pathology Report (09/21/2016 9:09 AM EST) Final Diagnosis [id number] ?Location: 3T The signing pathologist has (i) [...] MD PATHOLOGY/CYTOLOGY ORDERABLES Performing Organization Address City/[facility]/[place] [address] * Specimen to Pathology (surgical or derm) (09/21/2016 9:09 AM EST) AP Specimen 09/21/2016 9:09 AM EST 09/21/2016 9:09 AM EST Narrative [facility] - 09/21/2016 9:09 AM EST Specimen requisition ordered. ??Separate Pathology report to follow Alirio Esparza MD PATHOLOGY/CYTOLOGY ORDERABLES Performing Organization Address [facility] [place] [address] * (ABNORMAL) BLOOD GAS 2 ARTERIAL (09/21/2016 [...] [facility] Co de Phone Number [facility] [place] [address] * (ABNORMAL) BLOOD GAS 2 ARTERIAL (09/21/2016 [...] [facility] FIO2 Art 95 % [facility] Flow Art 1.1 LPM [facility] PF Ratio Art 298 [facility] Temp Art 35.6 Celsius [facility] Blood specimen (specimen) 09/21/2016 8:18 AM EST 09/21/2016 8:18 AM EST Alirio Esparza MD POINT OF CARE TEST ORDERABLES Performing Organization Address [facility] de Phone Number [facility] [place] [address] * Prepare RBC (09/21/2016 7:05 AM EST) Pathologist [facility] Dispensed? Yes [facility] Blood specimen (specimen) 09/21/2016 7:05 AM EST 09/21/2016 7:02 AM EST Alirio Esparza MD BLOOD BANK PRODUCT ORDERABLES Performing Organization Address [facility] Co de Phone Number [facility] [place] [address] * POCT Glucose (09/21/2016 6:42 AM EST) Pathologist [facility] Glucose, POC 104 65 - 199 mg/dL [facility] Comment: Supplemental ranges: <140 mg/dL before meals <180 mg/dL all other times of the day Blood specimen (specimen) 09/21/2016 6:42 AM EST 09/21/2016 6:42 AM EST Alirio Esparza MD POINT OF CARE TEST ORDERABLES Performing Organization Address City/State/[facility] Co de Phone Number [facility] [place] [address] documented in this encounter Visit Diagnoses Not [...] dose on Wed09/21/16 at 1230, Until Discontinued, Thompson teeth, Routine Given 09/25/2016 9:40 AM EST [...] 08 (Given - Provider: Marek Barnes, RN) 0942 (Given - Provider: Joselyn Caceres, RN) aspirin suppository 300 mg(Linked Group 1) 300 mg, Rectal, DAILY, First dose on Wed09/22/16 at 0900, Until Discontinued, Start on post-op day 1 in the AM, Routine 08 (See Alternative - Provider: Elsa Miguel RN) 08 (See Alternative - Provider: Marek Barnes, VALDO) 0942 (See Alternative - Provider: Joselyn Caceres RN) atorvastatin (LIPITOR) tablet 10 mg 10 mg, Oral, EVERY EVENING, First dose on Wed09/21/16 at 1700, Until Discontinued, Routine 170 (Given - Provider: Federico Apple RN) 162 (Given - Provider: Chaya iHll, VALDO) buPROPion (WELLBUTRIN SR or ZYBAN) SR [...] dose on Wed09/21/16 at 1230, Until Discontinued, Thompson teeth, Routine 0900 (Not Given - Provider: [...] 2 tablet, Oral, DAILY, First dose on 2/21/17 at 2100, Until Discontinued, Post-op day 1, [...] Provider: Elsa Miguel, VALDO)2019 (Given - Provider: Fdeerico Apple, VALDO) 0300 (Given - Provider: Alie [...] Routine documented in this encounter Care Teams Adjunct Physical Education Instructor Relationship Specialty Start Date End Date Deborah Quiroga, AIRLINE MANAGERIAL SUPERVISOR PCP - General Family Medicine 03/24/16 02/04/23 documented as of this encounter
--- OUTSIDE RECORDS SUMMARY | 2024-06-06 14:04 | XMS_ITS | Encounter Summary ---
Author Organization [facility] Address [facility] [place] [address] Care Team Providers Care Rn Provider Relations Name Role Phone Ashley Quirogan Cornelius ANURAG Primary Care Provider [phone] Encounter Details Date Type Department Care Team (Late st Contact Info) Description 08/11/2016 Telephone Hematology [place] [phone] Markel Borjas MD [facility] [address] [place] [address] Social History Tobacco Use Types Packs/Day Years [...] EST Office Visit Hematology and Oncology at [place] [phone] Markel Borjas MD [facility] [address] HEMATOLOGY [place] [address] 11/02/2024 12:00 PM EDT [place] [address] 11/02/2024 1:00 PM EDT Office Visit Rheumatology at [place] [phone] Magdalena Peralta MD [facility] [address] [place] [address] 03/01/2025 4:15 PM EDT Office Visit Dermatology at [place] [address] [place] [address] Marek Bonilla MD [address], [place] [address] documented as of this encounter Visit Diagnoses Not on filedocumented in this encounter Care Teams Rn Provider Relations Relationship Specialty Start Date End Date Deborah Quiroga APRN PCP - General Family Medicine 03/24/16 02/04/23 documented as of this encounter
--- OUTSIDE RECORDS SUMMARY | 2024-06-06 14:04 | XMS_ITS | Encounter Summary ---
[place] [address] Care Team Providers Care Assistant Professor Of History Name Role Phone Deborah Quiroga APRN Primary Care Provider [phone] Reason for Visit * Reason Onset Date Comments Prior Authorization 09/11/2016 Neulasta Encounter Details Date Type Department Care Team (Late st Contact Info) Description 09/11/2016 Telephone Hematology [place] [phone] Monica Wick Prior Authorization (Neulasta ) Social [...] AM EST Prior Auth for Neulasta (Approved) [facility] is a covered facility under the members plan. ID# [id number] Call placed to [phone] Rationale: Can you please start a PA for this pt to receive as outpatient at [facility] on 09/16/16? 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 ??Her last ANC was 0.56 (or 560) on 08/04/16. ??This will need to be approved through her medical as out patient. J code for neulasta. ?? [id number]. Spoke w/ Anna Marie Call Reference [id number] Copay: $ Deductible is not met, patient will have out of pocket costs until deductible is met. documented in this encounter Plan of Treatment Upcoming Encounters Date Type Department Care Team (Late st Contact Info) Description 06/23/2024 2:00 PM EST Office Visit Hematology and Oncology at [place] [phone] Markel Borjas MD [facility] [address] [place] [address] 11/02/2024 12:00 PM EDT Appointment Pulmonology at [address] 11/02/2024 1:00 PM EDT Office Visit Rheumatology at [place] [phone] Magdalena Peralta MD [facility] [place] [address] 03/01/2025 4:15 PM EDT Office Visit Dermatology at [address] [place] [phone] Marek Bonilla MD [address] [place] [address] documented as of this encounter Visit Diagnoses Not on filedocumented in this encounter Care Teams Assistant Professor Of History Relationship Specialty Start Date End Date Deborah Quiroga APRN PCP - General Family Medicine 03/24/16 02/04/23 documented as of this encounter
--- OUTSIDE RECORDS SUMMARY | 2024-06-06 14:04 | XMS_ITS | Encounter Summary ---
[place] [address] Care Team Providers Care Pattern Fitter Name Role Phone Junaid Deborah Shields APRN Primary Care Provider [phone] Reason for Visit * Auth/Cert Specialty Diagnoses / Procedures Referred By Crispin t Referred To Contact Diagnoses Aortic stenosis Procedures PRO REPLACE AORT VALV, PROSTH VALV @REPLACE AORTIC VALVE, OPEN, W\CPB, W\PROSTHETIC VALVE (WRVU 41.32) Referral ID Status Reason Start Date Expiration Date Visits Re quested Visits Authorized [id number] 1 1 Encounter Details Date Type Department Care Team (Late st Contact Info) Description 09/21/2016 7:25 AM EST Anesthesia Event [place] [address] Luis Enrique Quarles MD [facility] [place] [address] Henrik Cooper MD [facility] [place] [address] Anesthesia Record Procedure Summary Procedure Name Responsible [...] 0819 Sternotomy 0844 CV Bypass init 1009 Pinion And Wheel Truer 1014 An Clamp Remove 1031 CP Bypass [...] Tube 09/21/16 (#28 angled chest tube to [place]: left: pericardial); Left; 09/22/16; 1119 09/21/16 0000 by Toshia Alejandre RN 09/22/16 1119 by Vero Bonilla RN Chest Tube 09/21/16 (#28 straig ht chest tube to [place]; right: mediastinal'); Right; mediastinum; 09/22/16; 1118 09/21/16 0000 by Toshia Alejandre RN 09/22/16 1118 by Vero Bonilla RN (RETIRED) Peripheral IV Line - Single Lumen 09/21/16; 0648; metacarpal vein (top of hand), left; ynwi-[id number] catheter system; 20 gauge; valdo Arteaga; 09/23/16; [...] Cooper MD - 09/21/2016 6:50 PM EST [facility] Department of Anesthesiology Post-procedure Note Patient: Purnima Thacker Procedure Summary Date Anesthesia Start Anesthesia Stop Room / Location 09/21/16 07 1152 [facility] OR 16 / [facility] MAIN OR Procedure Diagnosis Surgeon Responsible Provider @REPLACE AORTIC VALVE, OPEN, W\CPB, W\PROSTHETIC VALVE (WRVU 41.32) (N/A Chest); @AORTOPLASTY FOR SUPRAVALVULAR STENOSIS (WRVU 29.33) (N/A Chest) () Alirio Francisco MD Clark, Jeffrey A, MD All Anesthesia Providers: Anesthesiologist: Luis Enrique Quarles MD Remelter: Henrik Cooper MD Last (1hr) Vitals: BP Temp 36.1 ??C (97 ??F) (09/21/16 1800) Pulse 79 (09/21/16 1800) Resp 11 (09/21/16 1800) SpO2 98 % (09/21/16 1800) Patient Location: [facility] Level of Consciousness: Sedated (Pharmacologic/Intentional) Pain [...] EST Office Visit [place] [phone] Markel Borjas MD [facility] [address] [place] [address] 11/02/2024 12:00 PM EDT [place]oint[place] [phone] 11/02/2024 1:00 PM EDT Office [place] [phone] Magdalena Peralta MD [facility] [address] 03/01/2025 4:15 PM EDT Office Visit Dermatology at [place] [address] [place] [phone] Marek Bonilla MD [address], [place] [place] [address] documented as of this encounter Visit Diagnoses [...] mg documented in this encounter Care Teams Pattern Fitter Relationship Specialty Start Date End Date Deborah Quiroga, PLANNING ASSOCIATE PCP - General Family Medicine 03/24/16 02/04/23 documented as of this encounter
--- OUTSIDE RECORDS SUMMARY | 2024-06-06 14:04 | XMS_ITS | Encounter Summary ---
[place] [address] Care Team Providers Care Can Reconditioner Name Role Phone Ashley Quirogan Cornelius ANURAG Primary Care Provider [phone] Reason for Visit * Reason Onset Date Comments Medical Care Coordination 09/14/2016 Encounter Details Date Type Department Care Team (Late st Contact Info) Description 09/14/2016 Telephone Hematology [place] [phone] Alexandrea Greenwood RN Medical Care Coordination Social [...] secretary receptionist: Injection/Infusion Referral Call placed to [facility] Infusion Room Spoke charis Bragg. Services to be provided for pt are: Miles 09/16/16 [facility] confirmed they would provide services to pt and would contact with appointment time. Pt aware to expect the phone call ??orders faxed to [phone]). documented in this encounter Plan of Treatment Upcoming Encounters Date Type Department Care Team (Late st Contact Info) Description 06/23/2024 2:00 PM EST Office Visit Hematology [place] [address] Markel Borjas MD [facility] [address] [place] [address] 11/02/2024 12:00 PM EDT Appointment [place] [address] 11/02/2024 1:00 PM EDT Office Visit Rheumatology at [place] [address] Magdalena Peralta MD [facility] [address] 03/01/2025 4:15 PM EDT Office Visit Dermatology at [place] [address] [place] [phone] Marek Bonilla MD [address], [place] [address] documented as of this encounter Visit Diagnoses Not on filedocumented in this encounter Care Teams Can Reconditioner Relationship Specialty Start Date End Date Deborah Quiroga APRN PCP - General Family Medicine 03/24/16 02/04/23 documented as of this encounter
--- OUTSIDE RECORDS SUMMARY | 2024-06-06 14:04 | XMS_ITS | Encounter Summary ---
Author Organization [facility] [place] [address] Care Team Providers Care Primary Teacher Name Role Phone Ashley Quirogazac Shields APRN Primary Care Provider [phone] Encounter Details Date Type Department Care Team (Late st Contact Info) Description 07/31/2016 Orders Only Hematology and Oncology at [place] [phone] Alexandrea Greenwood RN Neutropenia, unspecified type Social [...] EST Office Visit Hematology [place] [address] Markel Borjas MD [facility] [address] [place] [address] 11/02/2024 12:00 PM EDT Appointment [place] [address] 11/02/2024 1:00 PM EDT Office Visit Rheumatology at [place] [phone] Magdalena Peralta MD [facility] [place] [address] 03/01/2025 4:15 PM EDT Office Visit Dermatology at [place] [address] [place] [address] Marek Bonilla MD [address], [place] [address] documented as of this encounter [...] type documented in this encounter Care Teams Primary Teacher Relationship Specialty Start Date End Date Deborah Quiroga APRN PCP - General Family Medicine 03/24/16 02/04/23 documented as of this encounter
--- OUTSIDE RECORDS SUMMARY | 2024-06-06 14:04 | XMS_ITS | Encounter Summary ---
Author Organization [facility] [place] [address] Care Team Providers Care Director Of Operations Support Name Role Phone Ashley Quirogazac Shields APRN Primary Care Provider [phone] Encounter Details Date Type Department Care Team (Late st Contact Info) Description 07/31/2016 External Results Hematology and Oncology at [place] [phone] Alexandrea Greenwood RN Neutropenia, unspecified type Social [...] EST Office Visit Hematology [place] [address] Markel Borjas MD [facility] [address] [place] [address] 11/02/2024 12:00 PM EDT [place]oint[place] [address] 11/02/2024 1:00 PM EDT Office Visit Rheumatology at [place] [phone] Magdalena Peralta MD [facility] [place] [address] 03/01/2025 4:15 PM EDT Office Visit Dermatology at [place] [address] [place] [phone] Marek Bonilla MD [address] [place] [address] documented as of this encounter [...] in this encounter Care Teams Director Of Operations Support Relationship Specialty Start Date End Date Deobrah Quiroga APRN PCP - General Family Medicine 03/24/16 02/04/23 documented as of this encounter
--- OUTSIDE RECORDS SUMMARY | 2024-06-06 14:04 | XMS_ITS | Encounter Summary ---
Author Organization Formerly [facility] [place] [address] Care Team Providers Care Investments Manager Name Role Phone Ashley Quirogazac Shields APRN Primary Care Provider [phone] Reason for Referral * Consultation (Routine) - Specialty Diagnoses / Procedures Referred By Contact Referred To Contact Cardiac Rehabilitation Diagnoses S/P AVR Alirio Esparza MD [facility] DR CARDIOTHORAC[place] [address] Cardiac Rehab, [address] [place] [address] Referral ID Status Reason Start Date Expiration Date V isits Requested Visits Authorized [id number] Consult, Test & Treat 09/25/2016 03/24/2017 36 36 Reason for Visit * Auth/Cert Specialty Diagnoses / Procedures Referred By Contkrystle t Referred To Contact Diagnoses Aortic stenosis Procedures PRO REPLACE AORT VALV, PROSTH VALV @REPLACE AORTIC VALVE, OPEN, W\CPB, W\PROSTHETIC VALVE (WRVU 41.32) Referral ID Status Reason Start Date Expiration Date Visits Re quested Visits Authorized [id number] 1 1 Encounter Details Date Type Department Care Team (Latest Contact Info) Description 09/21/2016 6:08 AM EST - 09/25/2016 4:33 PM EST Hospital Encounter Intermediate [place] [id number] Alirio Esparza MD Aortic valve stenosis, unspecified [...] Patient Age: 61 y.o. Birthdate: 1955 Language: Luxembourger Race: White Ethnicity: Not nor Admit Date: 09/21/2016 Discharge Date: 09/25/2016 Attending Physician: Alirio Esparza MD Follow-up Recommendations for Providers: Please continue routine management of cardiovascular risk factors including blood pressure, lipids,glucose, etc. Please note any changes to medications. Patient to follow-up with PCP, Deborah Quiroga APRN, in 1-2 weeks. Patient to follow-up with Yard Coordinator, Dr. Antelmo Burrell, in two weeks. Patient to follow-up with Cardiac Surgery, Dr. Alirio Esparza, to be scheduled for before 10/19/2016, with CXR, EKG, and Echo. Inpatient Provider Contact Information: [facility] Section of Cardiac Surgery [facility] [place], [place] [address] FAX [phone] Discharge Diagnoses (Hospital Problems) Primary Diagnoses: Secondary [...] performed by Alirio Esparza MD at [facility] MAIN OR ??? Pro aortoplas for supravalv sten N/A 09/21/2016 @AORTOPLASTY FOR SUPRAVALVULAR STENOSIS (WRVU 29.33) performed by Alirio Esparza MD at [facility] MAIN OR Prior To Admission Medications [...] Hospital Course: Purnima Thacker was admitted to [facility] on 09/21/2016 via the Same [...] Alirio Esparza and/or the Cardiac Surgery Physician International Guest Coordinator Team may be reached at . [...] Dr. Alirio Jones. You may use a [place] or treadmill but avoid any pulling [...] friends, go to a movie, go to orthodoxy, etc. Heavy activities: No hunting, skiing, jogging, [...] the outpatient Phase 2 Cardiac Rehabilitation at [facility]. The patient agrees to a referral to this program. The referral will be sent at discharge and the patient should be contacted by the program within 1- 2 weeks from discharge. Future Appointments and Orders Future Appointments Provider Department Dept Phone 11/20/2016 11:30 AM Markel Borjas MD [facility] [phone] Future Orders Complete By Expires Echocardiogram Transthoracic([facility]) [VLA806 Custom] 10/18/2016 (Approximate) 09/18/2017 Process Instructions: If the Echocardiogram is to be PERFORMED in a location other than [place]--STOP and order [id number], Echocardiogram South/External. Scheduling Instructions: Questions: Is a Bubble Study requested?: No Does the patient have Congenital Heart Disease?: No Does patient require sedation?: None GA rationale: Should this service be billed to the research sponsor?: EKG 12 Lead [EKG1 Custom] 10/18/2016 (Approximate) 09/25/2017 Process Instructions: Scheduling Instructions: Questions: Which location will this be performed?: [place] Is a rhythm strip needed?: No If EKG Reason is Pre-op Evaluation, indicate diagnosis for surgery.: Should this service be billed to the research sponsor?: XR Chest PA & Lateral (Generic) [[id number] Custom] 10/18/2016 (Approximate) 09/25/2017 Process Instructions: Scheduling Instructions: Questions: Where will study be performed?: [facility]- Radiology Portable exam?: No Reason for exam and clinical history: s/p AVReplacement, patch annuloplasty 1 month f/u Other pertinent information: Stat read required?: Date of injury if applicable: Requested Time: Referral to Cardiac Rehab [JHA115 Custom] As directed Process Instructions: If no progress note charted, please enter Clinical details in comments. Scheduling Instructions: Questions: My question or request is: s/p AVR. Cardiac rehab at [facility] Referral to Home Health - at DISCHARGE [ZJO1035 CPT(R)] As directed Process Instructions: Scheduling Instructions: Comments: DOCUMENTATION FOR VNA SERVICES (INCLUDING THOSE PATIENTS WITH MEDICARE COVERAGE REQUIRING HOME VNA SERVICES AND/OR HOSPICE SERVICES) PATIENT'S LOCATION: Purnima Magalie Kirstie [address] [place] [phone] (home) No relevant phone numbers on file. Ice Carver's Name: self In discussion with the attending physician, it is certified that this patient is under their care and that they, or a Nurse Practitioner, or Physician International Guest Coordinator who is working directly with them, [...] for services as follows: HOME HEALTH AGENCY: [facility] PHONE: [phone] FAX: [phone] RN orders: Cardiopulmonary assessment, incisional assessment, assess [...] issues please call the Cardiac SurgeryOffice at [phone] FOR MEDICARE ONLY: In discussion with the [...] AFTER 09/30/16 Signed: Crispin Aranda PA-C 09/25/2016 [facility] Section of Cardiac Surgery [facility] [place], [place] [address] FAX [phone] Date: 09/25/2016 CC: ANURAG Alford Caryn E, APRN [address] [place] [address] documented in this encounter Discharge Instructions * [...] Alirio Esparza and/or the Cardiac Surgery Physician International Guest Coordinator Team may be reached at . [...] Dr. Alirio Jones. You may use a [place] Track or treadmill but avoid any pulling [...] friends, go to a movie, go to orthodoxy, etc. Heavy activities: No hunting, skiing, jogging, [...] the outpatient Phase 2 Cardiac Rehabilitation at [facility]. The patient agrees to a [...] PM EST Cardiac Surgery Progress Note: ID: [id number] S/p AVR, patch aortoplasty POD#2. PMH of [...] Gas) No results found for: PHART, PO2ART, [id number] Assessment/Plan: TPW out this am. (+) BM. [...] Signed: Crispin Aranda PA-C 09/24/2016 Team pager: [phone]; [phone] after 5pm [facility] Section of Cardiac Surgery * Leonor Henson, WEIGHT ANALYST - 09/23/2016 10:48 AM EST Cardiac Surgery Progress Note: ID: [id number] s/p AVR, patch aortoplasty POD#2. PMH of [...] Gas) No results found for: PHART, PO2ART, [id number] Assessment/Plan: s/p AVR, patch aortoplasty POD#2. PMH of Neutropenia, HLD, HTN, Depression, obesity, . Transferred from [facility] yesterday and doing well. Pathway. Will [...] Surgeon on rounds. Signed: Leonor Henson APRN [facility] Section of Cardiac Surgery Date: 09/23/2016 * Nico Palacios PA - 09/22/2016 9:56 AM EST Cardiac Surgery Progress Note: ID: [id number] s/p AVR, patch aortoplasty POD#1. PMH of [...] NT, ND, soft. Ext: Moves all extremities. [place], well perfused. Incisions: C/D/I Tubes/Lines/Drains: PIV, richi, [...] Attending Surgeon on rounds. Signed: EKATERINA KIM [facility] Section of Cardiac Surgery Date: [...] left pleural effusion. T/L/D Al ETT CVL [place] CT Pacing wires ASSESSMENT, MANAGEMENT, and DECISION [...] with outpatient services Lalitha Cohen SPTA Pager: [phone] Inpatient Physical Therapy Patient status, treatment interventions, and goals discussed with student. I am in agreement with all details and associated flowsheet rows as documented and was present for all aspects of the patient treatment session. Nerykatrina Jaramillo, [facility] Pager [phone] Problem: Acute Rehab Services Goal & Intervention Plan Goal: Bed Mobility Goal Stand Alone Therapy Goal Outcome: Ongoing (Interventions Implemented as Appropriate) 09/22/16 16109/25/16 09 Bed Mobility Goal Bed Mobility Goal, Time to Achieve 4 days -- Bed Mobility Goal, Activity Type scoot/bridge;supine to sit/sit to supine -- Bed Mobility Goal, [place] Level independent -- Bed Mobility Goal, Additional [...] Achieve 4 days -- Gait Training Goal, [place] Level independent -- Gait Training Goal, Distance [...] Lalitha Cohen [facility] Pager: [phone] Inpatient Physical Therapy Patient status, treatment interventions, and goals discussed with student. I am in agreement with all details and associated flowsheet rows as documented and was present for all aspects of the patient treatment session. Nery Jaramillo, [facility] Pager [phone] Problem: Acute Rehab Services Goal & Intervention Plan Goal: Bed Mobility Goal Stand Alone Therapy Goal Outcome: Ongoing (Interventions Implemented as Appropriate) 09/22/16 16109/23/16 1412 Bed Mobility Goal Bed Mobility Goal, Time to Achieve 4 days -- Bed Mobility Goal, Activity Type scoot/bridge;supine to sit/sit to supine -- Bed Mobility Goal, [place] Level independent -- Bed Mobility Goal, Additional [...] Achieve 4 days -- Gait Training Goal, [place] Level independent -- Gait Training Goal, Distance [...] days -- Transfer Training Goal, Activity Type wxj-sy-ujcaw/ijtcl-va-abu;bov-ks-tugsn/yfvzp-kc-hgj -- Transfer Train Goal, [place] Level independent -- Transfer Training Goal, Additional Goal abides sternal precautions -- Transfer Training Goal, Outcome -- goal met * Consult Note - Jana Crenshaw RN - 09/23/2016 9:41 AM EST [facility] CARD[facility]ILITATION Purnima Thacker was seen today regarding participation in the outpatient Phase 2 Cardiac Rehabilitation at [facility]. The patient agrees to a [...] Another Service: (cardiac rehab) NICOLE HERNANDEZ, PT Pager:[phone] Inpatient Physical Therapy Problem: Acute Rehab Services Goal & Intervention Plan Goal: Bed Mobility Goal Stand Alone Therapy Goal Outcome: Ongoing (Interventions Implemented as Appropriate) 09/22/16 1611 Bed Mobility Goal Bed Mobility Goal, Time to Achieve 4 days Bed Mobility Goal, Activity Type scoot/bridge;supine to sit/sit to supine Bed Mobility Goal, [place] Level independent Bed Mobility Goal, Additional Goal able to abide sternal precautions during transfers Goal: Gait Training Goal Stand Alone Therapy Goal Outcome: Ongoing (Interventions Implemented as Appropriate) 09/22/16 1611 Gait Training Goal Gait Training Goal, Date Established 09/22/16 Gait Training Goal, Time to Achieve 4 days Gait Training Goal, [place] Level independent Gait Training Goal, Distance to Achieve ascend and descends 2 steps independently Goal: Goal Transfer Training Stand Alone Therapy Goal Outcome: Ongoing (Interventions Implemented as Appropriate) 09/22/16 1611 Goal Transfer Training Transfer Training Goal, Time to Achieve 4 days Transfer Training Goal, Activity Type boy-fn-fftyy/kuonu-lv-pyi;bfo-bg-pnhli/hozcs-vh-kuc Transfer Train Goal, [place] Level independent Transfer Training Goal, Additional Goal [...] of completing AD's at home, chooses her fdfdrc-iw-iyp, Martha Thacker (home) for her [facility], 2nd choice in friend, Nitesh Leroy [place], [place] Current Coping/Education/Information Needs: patient sitting up [...] who live close by, [place], and her ympmgr-lh-irt Martha Thacker who she has chosen to be her DPOAH. Also has a friend Nitesh Leroy who lives in [place], [place], also her DPOAH choice. Behavioral Health History: none on file in [facility] Substance Use/Abuse: none on file in [facility] Other Pertinent/Service Specific Information: none Health/Prescription Coverage: Primary Insurance: [employer] Secondary Insurance: none Prescription Coverage: yes, per patient no issues Preferred Pharmacy: ?? Other: none Primary Care Provider: Deborah Quiroga, WEIGHT ANALYST [phone] Patient/Caregiver Goals of Treatment: per medical team recommendations at discharge for CT surgery Potential Needs for Transition of Care: Rehab/SNF: TBD Home Health: TBD DME: no Dialysis: no Community Resources: non3 Transportation: ride home with a friend Other: none Anticipated Barriers to Discharge/Special Considerations: none anticipated at this time Plan: patient will need VNA services at discharge. The patient/inside outside sales representative has been provided a list of Home Health Agencies/DME vendors which servetheir preferred geographic area. A letter describing our affiliations was reviewed with them and they were educated about their right to choose where referrals are placed. Patient requests referral to: [facility] [employer]. PHONE: [phone] FAX: [phone] Expected date of discharge: Fri/Sat? CM called VNA to confirm referral, talked with VALDO Bunn/intake who stated she was familiar w/patient & would monitor her progress through curaspan. Referral routed to the Associate Scientist for matching with agency/vendor and to provide any required information. A member of the Care Management team will continue to monitor progress, follow for continuity of care and assist with transition of care planning. Amanda Moreno RN Pager: [phone] * Op Note - Alirio Esparza MD - 09/21/2016 12:53 PM EST 09/23/2016 Purnima Thacker 1955 [id number] Preoperative Diagnosis: Symptomatic aortic stenosis Postoperative Diagnosis: Symptomatic aortic stenosis Procedure: Aortic valve replacement: Bovine Pericardial 25 mm Surgeon: Alirio Esparza M.D. International Guest Coordinator: Philip BALL Anesthesia: General endotracheal anesthesia [...] Operative Note Patient Name: Purnima Thacker : [id number] MR#: [id number] Case Date: 09/21/2016 Surgeon: Surgeon(s) and Role: * Alirio Esparza MD - Primary * Nico Palacios PA - Physician International Guest Coordinator Preoperative diagnosis: Postoperative diagnosis: Procedure(s) (LRB): [...] EST Office Visit Hematology and Oncology at [place] [address] [facility] [address] HEMATOLOGY [place] [address] 11/02/2024 12:00 PM EDT Appointment Pulmonology at [place] [address] 11/02/2024 1:00 PM EDT Office Visit Rheumatology at [place] [address] [facility] [place] [address] 03/01/2025 4:15 PM EDT Office Visit Dermatology at [place] [address] [place] [address] Marek Bonilla MD [address] [facility] [place] [address] Scheduled Orders Name Type Priority Associated Diagnoses [...] IMPLANTABLE DEVICES SCAN 09/26/2016 12:00 AM EST MINUTE CLERK FOR BASIC TRAFFIC SCAN 09/26/2016 12:00 AM EST POTASSIUM Routine [...] SCAN EXT O RDR/RSLT * SCAN DOC: MINUTE CLERK FOR BASIC TRAFFIC (09/26/2016 12:00 AM EST) Anatomical Region Laterality [...] CHEMISTRY ORDERABLE S [facility] [place] [address] * (ABNORMAL) Differential, Automated (09/24/2016 9:56 AM EST) Neutrophil % 76.8 % [facility] Neutrophil Absolute 7.79(H) 1.70 - 6.10 x10(3)/mc L [facility] Lymph % 11.1 % [facility] Lymphocytes Abs 1.1 0.9 - 3.2 x10(3)/[facility] LABORATORY Monocyte % 8.5 % [facility] Monocyte Abs 0.9 0.3 - 0.9 x10(3)/[facility] LABORATORY Eos % 0.5 % [facility] Eosinophils Abs 0.0 0.0 - 0.4 x10(3)/[facility] LABORATORY Basophil % 0.2 % [facility] Baso Absolute 0.0 0.0 - 0.1 x10(3)/[facility] LABORATORY Immature Gran % 2.90 % [facility] Comment: Immature granulocytes(IG's)percentage and absolute count will include metamyelocytes, myelocytes, and promyelocytes. Blood smears from CBCs yielding IG's will be scanned manually for concordance. If this scan disagrees with the automated IG or if promyelocytes are noted, a manual differential will be performed. Immature Gran Absolute 0.29(H) 0.00 - 0.04 x10(3)/[facility] LABORATORY Blood specimen (specimen) 09/24/2016 9:56 AM EST 09/24/2016 10:04 AM EST Narrative Resulting Agency Comment Spec In Lab Alirio Esparza MD HEMATOLOGY ORDERABL ES Performing Organization Address City/State/[facility] Co de Phone Number [facility] [place] [address] * (ABNORMAL) Hemogram (09/24/2016 9:56 AM EST) White Blood Cell 10.1(H) 4.0 - 9.5 x10(3)/[facility] LABORATORY Red Blood Cell 2.87(L) 4.00 - 5.21 x10(6)/[facility] LABORATORY Hemoglobin 9.4(L) 11.7 - 15.5 [...] HEMATOLOGY ORDERABL ES [facility] [place] [address] * (ABNORMAL) Basic Metabolic Panel (non-fasting) (09/24/2016 [...] the following links into your internet browser. [email or web address] Blood specimen (specimen) 09/24/2016 9:56 AM EST 09/24/2016 10:04 AM EST Narrative Resulting Agency Comment Spec In Lab Alirio Esparza MD CHEMISTRY ORDERABLE S [facility] [place] [address] * XR Chest PA & Lateral (Generic) [...] CHEMISTRY ORDERABLE S [facility] [place] [address] * POCT Glucose (09/22/2016 8:17 AM EST) Glucose, POC 131 65 - 199 mg/dL [facility] Comment: Supplemental ranges: <140 mg/dL before meals <180 mg/dL all other times of the day Blood specimen (specimen) 09/22/2016 8:17 AM EST 09/22/2016 8:17 AM EST Alirio Esparza MD POINT OF CARE TEST ORDERABLES Performing Organization Address [facility] de Phone Number [facility] [place] [address] * POCT Glucose (09/22/2016 4:01 AM EST) Glucose, POC 135 65 - 199 mg/dL [facility] Comment: Supplemental ranges: <140 mg/dL before meals <180 mg/dL all other times of the day Blood specimen (specimen) 09/22/2016 4:01 AM EST 09/22/2016 4:01 AM EST Alirio Esparza MD POINT OF CARE TEST ORDERABLES Performing Organization Address [facility] de Phone Number [facility] [place] [address] * Scan, Peripheral Blood (09/22/2016 4:00 AM EST) Pathologist [facility] Plat estimate Normal [facility] RBC Morphology Abnormal [facility] Macrocyte 1-5 /HPF [facility] Plat, Giant Less than 1 /HPF [facility] Blood specimen (specimen) 09/22/2016 4:00 AM EST 09/22/2016 4:34 AM EST Narrative Resulting Agency Comment Spec In Lab Alirio Esparza MD HEMATOLOGY ORDERABL ES Performing Organization Address [facility] Co de Phone Number [facility] [place] [address] * Electrolytes panel (09/22/2016 4:00 AM EST) Pathologist [facility] Sodium 145 135 - 145 mmol/L [facility] [...] CHEMISTRY ORDERABLE S [facility] [place] [address] * (ABNORMAL) Differential, Automated (09/22/2016 4:00 AM EST) Neutrophil % 70.9 % [facility] Neutrophil Absolute 5.33 1.70 - 6.10 x10(3)/mc L [facility] Lymph % 9.1 % [facility] Lymphocytes Abs 0.7(L) 0.9 - 3.2 x10(3)/mc L [facility] Monocyte % 18.0 % [facility] Monocyte Abs 1.4(H) 0.3 - 0.9 x10(3)/mc L [facility] Eos % 0.0 % [facility] [...] HEMATOLOGY ORDERABL ES [facility] [place] [address] * (ABNORMAL) Hemogram (09/22/2016 4:00 AM EST) White Blood Cell 7.5 4.0 - 9.5 x10(3)/[facility] LABORATORY Red Blood Cell 2.93(L) 4.00 - 5.21 x10(6)/[facility] LABORATORY Hemoglobin 9.2(L) 11.7 - [...] HOSPITAL LABORATORY Platelet 161 145 - 357 x10(3)/[facility] LABORATORY RDW Standard Deviation 44.0 37.0 - [address].0 [facility] LABORATORY RDW coefficient of variation 12.6 11.5 - 14.1 % [facility] Mean Platelet Volume 9.3 7.6 - 12.9 [facility] LABORATORY NRBC% auto 0.3 % [facility] NRBC Absolute 0.020(H) 0.000 - 0.000 x10(3)/ L [facility] Blood specimen (specimen) 09/22/2016 4:00 AM EST 09/22/2016 4:34 AM EST Narrative Resulting Agency Comment Spec In Lab Alirio Esparza MD HEMATOLOGY ORDERABL ES Performing Organization Address [facility] de Phone Number [facility] [place] [address] * (ABNORMAL) Cardiac Enzymes (09/22/2016 4:00 AM EST) Troponin-T 0.13(H) <=0.03 ng/mL [facility] Comment: 0.03 ng/mL: Represents the 99th percentile upper reference limit for normals. >0.03 ng/mL: Elevated cardiac troponin T level indicative of myocardial damage. Diagnosis of acute, evolving or recent CA requires a typical rise and gradual fall [...] ORDERABLE S Performing Organization Address [facility] Co de Phone Number [facility] [place] [address] * (ABNORMAL) Glucose, fasting (09/22/2016 4:00 AM [...] CHEMISTRY ORDERABLE S [facility] [place] [address] * (ABNORMAL) Creatinine (09/22/2016 4:00 AM EST) [...] the following links into your internet browser. [email or web address] Blood specimen (specimen) 09/22/2016 4:00 AM EST 09/22/2016 4:34 AM EST Narrative Resulting Agency Comment Spec In Lab Alirio Esparza MD CHEMISTRY ORDERABLE S Performing Organization Address [facility] Co de Phone Number [facility] [place] [address] * BUN (09/22/2016 4:00 AM EST) Blood Urea Nitrogen 10 8 - 18 mg/dL [facility] Blood specimen (specimen) 09/22/2016 4:00 AM EST 09/22/2016 4:34 AM EST Narrative Resulting Agency Comment Spec In Lab Alirio Esparza MD CHEMISTRY ORDERABLE S Performing Organization Address [facility] Phone Number [facility] [place] [address] * POCT Glucose (09/21/2016 9:59 PM EST) Glucose, POC 146 65 - 199 mg/dL [facility] Comment: Supplemental ranges: <140 mg/dL before meals <180 mg/dL all other times of the day Blood specimen (specimen) 09/21/2016 9:59 PM EST 09/21/2016 9:59 PM EST Alirio Esparza MD POINT OF CARE TEST ORDERABLES Performing Organization Address [facility] Co de Phone Number [facility] [place] [address] * POCT Glucose (09/21/2016 7:26 PM EST) Glucose, POC 152 65 - 199 mg/dL [facility] Comment: Supplemental ranges: <140 mg/dL before meals <180 mg/dL all other times of the day Blood specimen (specimen) 09/21/2016 7:26 PM EST 09/21/2016 7:26 PM EST Alirio Esparza MD POINT OF CARE TEST ORDERABLES Performing Organization Address [facility] Co de Phone Number [facility] [place] [address] * POCT Glucose (09/21/2016 6:00 PM EST) Glucose, POC 146 65 - 199 mg/dL [facility] Comment: Supplemental ranges: <140 mg/dL before meals <180 mg/dL all other times of the day Blood specimen (specimen) 09/21/2016 6:00 PM EST 09/21/2016 6:00 PM EST Alirio Esparza MD POINT OF CARE TEST ORDERABLES [facility] [place] [address] * (ABNORMAL) BLOOD GAS 2 ARTERIAL (09/21/2016 4:42 PM EST) [facility] pH, Arterial 7.35(L) 7.35 - 7.45 [facility] FIO2 Art 40 % [facility] PF Ratio Art 270 [facility] Blood specimen (specimen) 09/21/2016 4:42 PM EST 09/21/2016 4:42 PM EST Alirio Esparza MD POINT OF CARE TEST ORDERABLES Performing Organization Address City/[facility]/ZIP Co de Phone Number [facility] [place] [address] * POCT Glucose (09/21/2016 4:07 PM EST) [...] [place]/ZIP Co de Phone Number [facility] [place] [address] * (ABNORMAL) Hemoglobin (09/21/2016 4:05 PM EST) Hemoglobin 9.9(L) 11.7 - 15.5 gm/dL [facility] Blood specimen (specimen) 09/21/2016 4:05 PM EST 09/21/2016 4:20 PM EST Narrative Resulting Agency Comment Spec In Lab Alirio Esparza MD HEMATOLOGY ORDERABL ES Performing Organization Address [facility] de Phone Number [facility] [place] [address] * Potassium (09/21/2016 4:05 PM EST) Potassium [...] MD CHEMISTRY ORDERABLE S Performing Organization Address [facility] de Phone Number [facility] [place] [address] * POCT Glucose (09/21/2016 2:52 PM EST) Glucose, POC 117 65 - 199 mg/dL [facility] Comment: Supplemental ranges: <140 mg/dL before meals <180 mg/dL all other times of the day Blood specimen (specimen) 09/21/2016 2:52 PM EST 09/21/2016 2:52 PM EST Alirio Esparza MD POINT OF CARE TEST ORDERABLES Performing Organization Address [facility] Co de Phone Number [facility] [place] [address] * POCT Glucose (09/21/2016 1:51 PM EST) [...] [place]/ZIP Co de Phone Number [facility] [place] [address] * POCT Glucose (09/21/2016 12:54 PM EST) Glucose, POC 128 65 - 199 mg/dL [facility] Comment: Supplemental ranges: <140 mg/dL before meals <180 mg/dL all other times of the day Blood specimen (specimen) 09/21/2016 12:54 PM EST 09/21/2016 12:54 PM EST Alirio Esparza MD POINT OF CARE TEST ORDERABLES Performing Organization Address [facility] Co de Phone Number [facility] [place] [address] * EKG 12 Lead (09/21/2016 12:26 PM EST) Ventricular rate 87 BPM MUSE SYSTEM Atrial Rate 87 BPM MUSE SYSTEM P-R Interval 256 ms MUSE SYSTEM QRS Duration 90 ms MUSE SYSTEM Q-T Interval 406 ms MUSE SYSTEM QTC Calculated (Bezet) 488 ms MUSE SYSTEM Calculated P Leighton 24 degrees MUSE SYSTEM Calculated R Leighton 21 degrees MUSE SYSTEM Calculated T Leighton -5 degrees MUSE SYSTEM INTERPRETATION Sinus rhythm with 1st degree A-V block Nonspecific T wave abnormality Prolonged QT Abnormal ECG When compared with ECG of 19-MAY-2016 11:43, VA interval has increased T wave inversion now evident in inferior and midanterior leads Confirmed by MD FRANKLYN, MARLEN ([id number]) on 09/21/2016 1:40:59 PM MUSE SYSTEM 09/21/2016 12:2 6 PM EST 09/21/2016 1:40 PM EST Alirio Esparza MD ECG ORDERABLES Performing Organization Address City/[facility] Co de Phone Number MUSE [...] course of the esophagus and below the [id number]. There is a right IJ PA catheter [...] the course of theesophagus and below the [id number]. There is a right IJ PA catheter [...] [facility] FIO2 Art 100 % [facility] PF Ratio Art 356 [facility] Blood specimen (specimen) 09/21/2016 12:20 PM EST 09/21/2016 12:20 PM EST Alirio Esparza MD POINT OF CARE TEST ORDERABLES [facility] [place] [address] * (ABNORMAL) BLOOD GAS 2 ARTERIAL (09/21/2016 [...] [facility] FIO2 Art 95 % [facility] Flow Art 0.7 LPM [facility] PF Ratio Art 313 [facility] Temp Art 36.7 Celsius [facility] Blood specimen (specimen) 09/21/2016 10:54 AM EST 09/21/2016 10:54 AM EST Alirio Esparza MD POINT OF CARE TEST ORDERABLES Performing Organization Address [facility]/ZIP Co de Phone Number [facility] [place] [address] * Thrombin time (09/21/2016 10:50 AM EST) [...] ORDERABLE S Performing Organization Address [facility] Co de Phone Number [facility] [place] [address] * Fibrinogen (09/21/2016 10:50 AM EST) Fibrinogen [...] ORDERABLE S Performing Organization Address [facility]/ZIP Co de Phone Number [facility] [place] [address] * APTT (09/21/2016 10:50 AM EST) Partial Thromboplastin Time 32 25 - 35 sec [facility] Comment: The recommended therapeutic range for full dose, unfractionated heparin at [facility] is 80 ? 114 seconds. The use [...] [place]/ZIP Co de Phone Number [facility] [place] [address] * (ABNORMAL) Prothrombin Time (09/21/2016 10:50 AM [...] HEMATOLOGY ORDERABLE S [facility] [place] [address] * (ABNORMAL) Hemogram (09/21/2016 10:50 AM EST) [...] HEMATOLOGY ORDERABLE S [facility] [place] [address] * Prepare Platelets, Apheresis (09/21/2016 10:30 AM EST) Dispensed? Yes [facility] Blood specimen (specimen) 09/21/2016 10:30 AM EST 09/21/2016 10:28 AM EST Alirio Esparza MD BLOOD BANK PRODUCT ORDERABLES [facility] [place] [address] * (ABNORMAL) BLOOD GAS 2 ARTERIAL (09/21/2016 10:05 AM EST) pH, Arterial 7.33(L) 7.35 - 7.45 [facility] PCO2, Arterial 54(Critic al) 35 - 45 mmHg [facility] Comment:Noted by supervisor instrument maintenance. PO2, Arterial 218(H) 85 - 104 mmHg [...] [facility] Comment: Noted by supervisor instrument maintenance. [...] [facility] Temp Art 37.0 Celsius [facility] Blood specimen (specimen) 09/21/2016 10:05 AM EST 09/21/2016 10:05 AM EST Alirio Esparza MD POINT OF CARE TEST ORDERABLES [facility] [place] [address] * (ABNORMAL) BLOOD GAS 2 ARTERIAL (09/21/2016 9:44 AM EST) pH, Arterial 7.22(Criti gabrielle) 7.35 - 7.45 [facility] Comment:Noted by supervisor instrument maintenance. PCO2, Arterial 70(Critica l) 35 - 45 mmHg [facility] Comment:Noted by supervisor instrument maintenance. PO2, Arterial 224(H) 85 - 104 mmHg [...] TEST ORDERABLES Performing Organization Address [facility] Co de Phone Number [facility] [place] [address] * (ABNORMAL) Hemoglobin (09/21/2016 9:42 AM EST) Hemoglobin 7.2(L) 11.7 - 15.5 gm/dL [facility] Blood specimen (specimen) 09/21/2016 9:42 AM EST 09/21/2016 9:51 AM EST Narrative Resulting Agency Comment Spec In Lab Alirio Esparza MD HEMATOLOGY ORDERABL ES Performing Organization Address [facility] Co de Phone Number [facility] [place] [address] * Platelet count (09/21/2016 9:42 AM EST) Platelet 159 145 - 357 x10(3)/mc L [facility] Immature Plt % 1.6 0.0 - 7.4 % [facility] Comment: Limitation of the Immature Platelet Fraction (IPF)-May be less reliable when the platelet count is less than 05e956/uL due to statistical imprecision. The IPF value [...] in a decreased state of production. References: [employer] The Clinical Value of the Immature Platelet Fraction (IPF) in Cell Recovery Document Number 10-1143 12/2010 [employer] The Role of the Immature Platelet Fraction (IPF) in the Differential Diagnosis of Thrombocytopenia, Document MKT-10-1209 V05 P012/13 Blood specimen (specimen) 09/21/2016 9:42 AM EST 09/21/2016 9:51 AM EST Narrative Resulting Agency Comment Spec In Lab Alirio Esparza MD HEMATOLOGY ORDERABL ES [facility] [place] [address] * (ABNORMAL) Hematocrit (09/21/2016 9:42 AM EST) [facility] Hematocrit 21.6(L) 35.7 - 45.8 % [facility] Comment: This result has been called to MICHELLE ALEJANDRE by Serjio Frazier on 09 21 2016 at 0957, and has been read back. Blood specimen (specimen) 09/21/2016 9:42 AM EST 09/21/2016 9:51 AM EST Narrative Resulting Agency Comment Spec In Lab Alirio Esparza MD HEMATOLOGY ORDERABL ES [facility] [place] [address] * Fibrinogen (09/21/2016 9:42 AM EST) [facility] Fibrinogen 219 180 - 510 mg/dL [facility] [...] HEMATOLOGY ORDERABL ES [facility] [place] [address] * (ABNORMAL) BLOOD GAS 2 ARTERIAL (09/21/2016 [...] [facility] Temp Art 37.0 Celsius [facility] Blood specimen (specimen) 09/21/2016 9:10 AM EST 09/21/2016 9:10 AM EST Alirio Esparza MD POINT OF CARE TEST ORDERABLES [facility] [place] [address] * Surgical Pathology Report (09/21/2016 9:09 AM EST) Final Diagnosis [id number] ?Location: The signing pathologist has (i) examined [...] Esparza MD PATHOLOGY/CYTOLOGY ORDERABLES Performing Organization Address City/[facility]/[place] [address] * Specimen to Pathology (surgical or derm) (09/21/2016 9:09 AM EST) AP Specimen 09/21/2016 9:09 AM EST 09/21/2016 9:09 AM EST Narrative [facility] - 09/21/2016 9:09 AM EST Specimen requisition ordered. ??Separate Pathology report to follow Alirio Esparza MD PATHOLOGY/CYTOLOGY ORDERABLES Performing Organization Address City/[facility]/[place] [address] * (ABNORMAL) BLOOD GAS 2 ARTERIAL (09/21/2016 [...] City/State/[facility] Co de Phone Number [facility] [place] [address] * (ABNORMAL) BLOOD GAS 2 ARTERIAL (09/21/2016 [...] [facility] FIO2 Art 95 % [facility] Flow Art 1.1 LPM [facility] PF Ratio Art 298 [facility] Temp Art 35.6 Celsius [facility] Blood specimen (specimen) 09/21/2016 8:18 AM EST 09/21/2016 8:18 AM EST Alirio Esparza MD POINT OF CARE TEST ORDERABLES [facility] [place] [address] * Prepare RBC (09/21/2016 7:05 AM EST) Dispensed? Yes [facility] Blood specimen (specimen) 09/21/2016 7:05 AM EST 09/21/2016 7:02 AM EST Alirio Esparza MD BLOOD BANK PRODUCT ORDERABLES [facility] [place] [address] * POCT Glucose (09/21/2016 6:42 AM EST) [...] [place]/ZIP Co de Phone Number [facility] [place] [address] documented in this encounter Visit Diagnoses Diagnosis [...] dose on Wed09/21/16 at 1230, Until Discontinued, [place] teeth, Routine Given 09/25/2016 9:40 AM EST [...] if phenyleprine and/or vasopressin ineffective.Call pager # [phone] if initiated., Routine Rate/Dose Change 09/21/2016 2:27 [...] L/min/M2. Maximum volume 2 L. Call warehouse delivery manager for additional fluid orders: pager #[phone]. Rate/Dose Verify 09/22/2016 10:00 AM EST 10 mL/hr 10 mL/hr Rate/Dose Change 09/22/2016 8:12 AM EST 10 mL/hr 10 mL/h r Rate/Dose Verify 09/21/2016 2:00 PM EST 100 mL/hr 100 mL/ hr sodium chloride 0.9% infusion 10-30 mL/hr, Intravenous, DAILY PRN, Starting on Wed09/21/16 at 1206, Until Wed09/22/16 at 1036, Side port TKO rate, per CC nursing protocol. Rate/Dose Verify 09/21/2016 5:00 PM [...] dose on Wed09/21/16 at 1230, Until Discontinued, [place] teeth, Routine 0900 (Not Given - Provider: [...] RN) 0826 (Given - Provider: Marek Barnes, RN)1622 (Given - Provider: Chaya Hill RN) [...] 2017 (Given - Provider: Federico Apple RN) 0829 (Given - Provider: Marek Barnes RN)2042 (Given - Provider: Alie Whitfield, VALDO) [...] RN) 09 (See Alternative - Provider: Joselyn Caceres, VALDO) pantoprazole (PROTONIX) tablet 40 mg(Linked Group 2) 40 mg, Oral, DAILY, First dose on Wed09/21/16 at 1230, Until Discontinued, DO NOT CRUSH OR OPEN If unable to take PO, may give IV 08 (Given - Provider: Elsa Miguel RN) 828 (Given - Provider: Marek Barnes RN) 09 (Given - Provider: Joselyn Caceres RN) potassium [...] in shift)1100 (Given - Provider: Marek Barnes RN)2043 (Given - Provider: Alie Whitfield RN) 0300 [...] Routine documented in this encounter Care Teams Investments Manager Relationship Specialty Start Date End Date Deborah Quiroga APRN PCP - General Family Medicine 03/24/16 02/04/23 documented as of this encounter
--- OUTSIDE RECORDS SUMMARY | 2024-06-06 14:04 | XMS_ITS | Encounter Summary ---
Author Organization [facility] [place] [address] Care Team Providers Care Health Club Attendant Name Role Phone Ashley Quirogazac Shields APRN Primary Care Provider [phone]- [phone] Encounter Details Date Type Department Care Team (Late st Contact Info) Description 09/17/2016 External Results Hematology and Oncology at [place] [phone] Alexandrea Greenwood RN Neutropenia, unspecified type Social [...] EST Office Visit Hematology [place] [address] Markel Borjas MD [facility] [address] HEMATOLOGY [place] [address] 11/02/2024 12:00 PM EDT Appointment [place] [address] 11/02/2024 1:00 PM EDT Office Visit Rheumatology at [place] [phone] Magdalena Peralta MD [facility] [place] [address] 03/01/2025 4:15 PM EDT Office Visit Dermatology at [place] [address] [place] [address] Marek Bonilla MD [address] [place] [address] documented as of this encounter Procedures Procedure [...] documented in this encounter Care Teams Health Club Attendant Relationship Specialty Start Date End Date Deborah Quiroga APRN PCP - General Family Medicine 03/24/16 02/04/23 documented as of this encounter
--- OUTSIDE RECORDS SUMMARY | 2024-06-06 14:04 | XMS_ITS | Encounter Summary ---
Author Organization [facility] [place] [address] Care Team Providers Care Crystal Attacher Name Role Phone Ashley Quirogazac Shields APRN Primary Care Provider [phone] Encounter Details Date Type Department Care Team (Late st Contact Info) Description 08/04/2016 External Results Hematology and Oncology at [place] [phone] Alexandrea Greenwood RN Neutropenia, unspecified type Social [...] EST Office Visit [place] [address] Markel Borjas MD [facility] [address] [place] [address] 11/02/2024 12:00 PM EDT [place] [address] 11/02/2024 1:00 PM EDT Office Visit Rheumatology at [place] [phone] Magdalena Peralta MD [facility] [place] [address] 03/01/2025 4:15 PM EDT Office Visit Dermatology at [place] [address] [place] [address] Marek Bonilla MD [address], [place] [address] documented as of this encounter Procedures Procedure [...] type documented in this encounter Care Teams Crystal Attacher Relationship Specialty Start Date End Date Deborah Quiroga APRN PCP - General Family Medicine 03/24/16 02/04/23 documented as of this encounter
--- OUTSIDE RECORDS SUMMARY | 2024-06-06 14:04 | XMS_ITS | Encounter Summary ---
[place] [address] Care Team Providers Care Washcloth Folder Name Role Phone Ashley Quirogan Cornelius ANURAG Primary Care Provider [phone]- [phone] Reason for Visit * Reason Onset Date Comments Medication Management 09/14/2016 Encounter Details Date Type Department Care Team (Late st Contact Info) Description 09/14/2016 Telephone Hematology [place] [phone] Alexandrea Greenwood, communication arts lecturer Management Social History Tobacco Use Types Packs/Day [...] 09/14/2016 9:12 AM EST Message received from assistant secretary: Purnima called, asking for clarification on [...] EST Office Visit Hematology and Oncology at [place] [phone] Markel Borjas MD [facility] [address] [place] [address] 11/02/2024 12:00 PM EDT [place] [address] 11/02/2024 1:00 PM EDT Office Visit Rheumatology at [place] [phone] Magdalena Peralta MD [facility] [place] [address] 03/01/2025 4:15 PM EDT Office Visit Dermatology at [address] [place] [address] Marek Bonilla MD [address], [place] [address] documented as of this encounter Visit Diagnoses Not on filedocumented in this encounter Care Teams Washcloth Folder Relationship Specialty Start Date End Date Deborah Quiroga APRN PCP - General Family Medicine 03/24/16 02/04/23 documented as of this encounter
--- OUTSIDE RECORDS SUMMARY | 2024-06-06 14:04 | XMS_ITS | Encounter Summary ---
[place] [address] Care Team Providers Care Dynamo Repairer Name Role Phone Deborah Quiroga ANURAG Primary Care Provider [phone]- [phone] Reason for Visit * Reason Onset Date Comments Medical Care Coordination 07/31/2016 Encounter Details Date Type Department Care Team (Late st Contact Info) Description 07/31/2016 Telephone Hematology [place] [phone] Alexandrea Greenwood RN Medical Care Coordination Social [...] 08/04/15 RN spoke with Aydee of the [facility] lab who states they can draw pt's cbc on 08/04/15, RN faxed lab req to [phone] at Aydee's request. RN instructed pt on Dr. Borjas's direction above. Pt verbalized understanding. documented in this encounter Plan of Treatment Upcoming Encounters Date Type Department Care Team (Late st Contact Info) Description 06/23/2024 2:00 PM EST Office Visit [place] [address] Markel Borjas MD [facility] [address] HEMATOLOGY [place] [address] 11/02/2024 12:00 PM EDT Appointment Pulmonology at [place] [phone] 11/02/2024 1:00 PM EDT [place] [address] Magdalena Peralta MD [facility] [place] [address] 03/01/2025 4:15 PM EDT Office Visit Dermatology at [place] [address] [place] [address] Marek Bonilla MD [address], [address] DERMATOLOGY [place], [place] [phone] documented as of this encounter Visit Diagnoses Not on filedocumented in this encounter Care Teams Dynamo Repairer Relationship Specialty Start Date End Date Deborah Quiroga APRN PCP - General Family Medicine 03/24/16 02/04/23 documented as of this encounter
--- OUTSIDE RECORDS SUMMARY | 2024-06-06 14:04 | XMS_ITS | Encounter Summary ---
[place] [address] Care Team Providers Care Sole Conditioner Name Role Phone Deborah Quiroga ANURAG Primary Care Provider [phone] Encounter Details Date Type Department Care Team (Late st Contact Info) Description 09/11/2016 Orders Only Hematology [place] [address] Alexandrea Greenwood RN Social History [...] the original note were not included. [facility] [place] [phone] Date: 09/11/16 Patient Name: Onesimo Thacker : 1955 Diagnosis: Neutropenia Referral to [site]: [facility] Orders: ? Growth factor: [x] Neulasta 6mg SQ injection x 1 on 09/16/16 Signature: Markel Borjas MD beeper # [id number] Co-signature [if needed]: documented in this encounter Plan of Treatment Upcoming Encounters Date Type Department Care Team (Late st Contact Info) Description 06/23/2024 2:00 PM EST Office Visit Hematology [place] [address] Markel Borjas MD [facility] [address] [place] [address] 11/02/2024 12:00 PM EDT Appointment [place] [address] 11/02/2024 1:00 PM EDT Office [place] [address] Magdalena Peralta MD [facility] [place] [address] 03/01/2025 4:15 PM EDT Office Visit Dermatology at [place] [address] [place] [address] Marek Bonilla MD [address] [address], [place] [address] documented as of this encounter Procedures Procedure Name Priority Date/Time Associated Diagnosis Comments TRANSESOPHAGEAL ECHOCARDIOGRAM (GAVINO) Routine 09/22/2016 documented in this encounter Results * Transesophageal Echocardiogram (GAVINO) (09/22/2016) Anatomical Region Laterality Modality Other 09/22/2016 Narrative 09/22/2016 8:30 AM EST Procedure: ?Transesophageal Echocardiogram Patient: ?ANDREW ONESIMO M ? (Age): 1955(61y) Med Rec#: ? [id number] ?Sex: ?M ? Site Loc: ? [facility] ?Ht / Wt: ??(cm)/ (kg) ? Pt. Loc: ?OR ? Study Date: ?? 09/21/2016 ?Pt. Type: Tape: ? Referring: Alirio Francisco Reading: Henrik Yarbrough ([id number]) Military Administrative Technician: Jacobo Patel ([id number]) Interpreting Fellow: Jacobo Patel ([id number]) Diagnosis: *Aortic valve disorders (424.1) CPT Codes: *Echo GAVINO Full (53290) Indication: ?? AVR for severe Rhythm: ? [...] ? Mid-Inferior ?Normal ? Mid-Inferoseptal ?Normal ? [place]-Septal ? Normal ? [place]-Anterior ? Normal ? [place]-Lateral ?Normal ? [place]-Inferior ? Normal ? [place]-Tip ?Normal ? This report has been electronically signed by: Henrik Yarbrough M.D. ? 09/22/2016 08:30:41 Images reviewed and interpretation verified [facility] Procedure Note Henrik Yarbrough MD - 09/22/2016 Procedure: Transesophageal Echocardiogram Patient: ANDREW Mejias (Age): 1955(61y) Med Rec#: [id number] Sex: M Site Loc: [facility] Ht / Wt: (cm)/ (kg) Pt. Loc: OR Study Date: 09/21/2016 Pt. Type: Tape: Referring: Alirio Francisco Reading: Henrik Yarbrough ([id number]) Military Administrative Technician: Jacobo Patel ([id number]) Interpreting Fellow: Jacobo Patel ([id number]) Diagnosis: *Aortic valve disorders (424.1) CPT Codes: *Echo GAVINO Full (06134) Indication: AVR for severe Rhythm: Sinus SUMMARY: [...] Normal Mid-Posterolateral Normal Mid-Inferior Normal Mid-Inferoseptal Normal [place]-Septal Normal [place]-Anterior Normal [place]-Lateral Normal [place]-Inferior Normal [place]-Tip Normal This report has been electronically signed by: Henrik Yarbrough M.D. 09/22/2016 08:30:41 Images reviewed and interpretation verified [facility] Unknown ECHO ORDERABLES documented in this encounter Visit Diagnoses Not on filedocumented in this encounter Care Teams Sole Conditioner Relationship Specialty Start Date End Date Deborah Quiroga APRN PCP - General Family Medicine 03/24/16 02/04/23 documented as of this encounter
--- OUTSIDE RECORDS SUMMARY | 2024-06-06 14:05 | XMS_ITS | Encounter Summary ---
Author Organization [facility] Address [facility] [place] [address] Care Team Providers Care Lead Engineer Name Role Phone Junaid Deborah Shields APRN Primary Care Provider +1- [phone] Encounter Details Date Type Department Care Team (Latest Contact Info) Description 06/19/2016 - 06/19/2016 11:59 PM EST Hospital Encounter Radiology Library at [facility] [place] [phone] Nitesh Pina Jr., MD [facility] [place] [address] Pain Discharge Disposition: Home Social History Tobacco [...] Visit Hematology [place] [address] Markel Borjas MD [facility] DR [place] [address] 11/02/2024 12:00 PM EDT Appointment [place] [address] 11/02/2024 1:00 PM EDT Office Visit Rheumatology at [place] [phone] Magdalena Peralta MD [facility] [place] [address] 03/01/2025 4:15 PM EDT Office Visit Dermatology at [place] [address] [facility] [place] [address] Marek Bonilla MD [address] [place] [address] documented as of this encounter Procedures Procedure Name Priority Date/Time Associated Diagnosis Comments FILM LIBRARY STORAGE ONLY CT CHEST ABDOMEN PELVIS Routine 06/19/2016 12:00 AM EST Pain documented in this encounter Results * Film Library- Storage Only CT Chest Abdomen Pelvis (06/19/2016 12:00 AM EST) Narrative RAD - 06/20/2016 8:53 AM EST This exam is for storage only and is auto-finalizing. Nitesh Pina Jr., MD IMG FILM LIBRARY ORD ERABLES [place], [place] documented in this encounter Visit Diagnoses Diagnosis Pain Generalized pain documented in this encounter Care Teams Lead Engineer Relationship Specialty Start Date End Date Deborah Quiroga, MILLED RICE BROKER PCP - General Family Medicine 03/24/16 02/04/23 documented as of this encounter
--- OUTSIDE RECORDS SUMMARY | 2024-06-06 14:05 | XMS_ITS | Encounter Summary ---
Author Organization [facility] [place] [address] Care Team Providers Care Boxing Inspector Name Role Phone Ashley Quirogazac Shields APRN Primary Care Provider +1 [phone] Reason for Visit * Consultation (Urgent) - Closed Specialty Diagnoses / Procedures Referred By Contac t Referred To Contact Cardiac Surgery Diagnoses aortic stenosis, consideration for valve replacement Antelmo Burrell MD [address] [place] [address] [place] [address] Alirio Esparza MD [facility] DR [place] [address] Referral ID Status Reason Start Date Expiration Date V isits Requested Visits Authorized [id number] Closed Connection Center 03/04/2016 03/04/2017 1 1 Encounter Details Date Type Department Care Team (Late st Contact Info) Description 03/24/2016 10:40 AM EDT Office [place] [phone] Alirio Esparza MD Aortic valve stenosis, unspecified [...] This is a patient of Antelmo Burrell [facility] Cardiology. Mrs. Thacker is being sent [...] 30 minute visit, 20 minutes were spent [id number] with the patient discussing aortic stenosis and valve replacement. documented in this encounter Plan of Treatment Upcoming Encounters Date Type Department Care Team (Late st Contact Info) Description 06/23/2024 2:00 PM EST Office Visit [place] [address] Markel Borjas MD [facility] DR [place] [address] 11/02/2024 12:00 PM EDT Appointment Pulmonology at [place] [phone] 11/02/2024 1:00 PM EDT Office [place] [phone] Magdalena Peralta MD [facility] [place] [address] 03/01/2025 4:15 PM EDT Office Visit Dermatology at [place] [address] [facility] [place] [phone] Marek Bonilla MD [address], [place] [address] documented as of this encounter Visit Diagnoses Diagnosis Aortic valve stenosis, unspecified etiology documented in this encounter Care Teams Boxing Inspector Relationship Specialty Start Date End Date Deborah Quiroga APRN PCP - General Family Medicine 03/24/16 02/04/23 documented as of this encounter
--- OUTSIDE RECORDS SUMMARY | 2024-06-06 14:05 | XMS_ITS | Encounter Summary ---
Author Organization [facility] [place] [address] Care Team Providers Care It Data Architect Name Role Phone Ashley Quirogan Cornelius ANURAG Primary Care Provider +1 [phone] Reason for Visit * Reason Onset Date Comments Pre Procedure Call 06/18/2016 Encounter Details Date Type Department Care Team (Late st Contact Info) Description 06/18/2016 Telephone Hematology [place] [address] Alexandrea Greenwood RN Pre Procedure [...] EST Office Visit Hematology [place] [phone] Markel Borjas MD [facility] [address] [place] [address] 11/02/2024 12:00 PM EDT Appointment [place] [phone] 11/02/2024 1:00 PM EDT Office Visit [place] [address] Magdalena Peralta MD [facility] [place] [address] 03/01/2025 4:15 PM EDT Office Visit Dermatology at [place] [address] [facility] [place] [address] Marek Bonilla MD [address], [place] [address] documented as of this encounter Visit Diagnoses Not on filedocumented in this encounter Care Teams It Data Architect Relationship Specialty Start Date End Date Deborah Quiroga APRN PCP - General Family Medicine 03/24/16 02/04/23 documented as of this encounter
--- OUTSIDE RECORDS SUMMARY | 2024-06-06 14:05 | XMS_ITS | Encounter Summary ---
Author Organization [facility] Address [facility] [place] [address] Care Team Providers Care Mental Hygiene Consultant Name Role Phone Ashley Quirogan Cornelius ANURAG Primary Care Provider +1- [phone] Encounter Details Date Type Department Care Team (Late st Contact Info) Description 06/16/2016 Orders Only Hematology [place] [phone] Nitesh Pina Jr., MD [facility] DR [place] [address] Cyclical neutropenia Social History Tobacco Use Types [...] EST Office Visit Hematology [place] [address] Markel Borjas MD [facility] DR [place] [address] 11/02/2024 12:00 PM EDT Appointment [place] [address] 11/02/2024 1:00 PM EDT Office [place] [address] Magdalena Peralta MD [facility] [place] [address] 03/01/2025 4:15 PM EDT Office Visit Dermatology at [place] [address] [facility] [place] [address] Marek Bonilla MD [address], [address] [address] documented as of this encounter Visit Diagnoses Diagnosis Cyclical neutropenia Cyclic neutropenia documented in this encounter Care Teams Mental Hygiene Consultant Relationship Specialty Start Date End Date Deborah Quiroga APRN PCP - General Family Medicine 03/24/16 02/04/23 documented as of this encounter
--- OUTSIDE RECORDS SUMMARY | 2024-06-06 14:05 | XMS_ITS | Encounter Summary ---
Author Organization [facility] Address [facility] [place] [address] Care Team Providers Care Barrel Straightener Name Role Phone Ashley Quirogan Cornelius ANURAG Primary Care Provider +1- [phone] Encounter Details Date Type Department Care Team (Late st Contact Info) Description 05/22/2016 Orders Only Cardiology at [address] [phone] Chele Randolph PA [facility] DR CARDIOLOGY DEPT. [place], [place] [phone] Aortic valve stenosis, unspecified etiology Social History [...] EST Office Visit Hematology [place] [address] Markel Borjas MD [facility] [address] HEMATOLOGY AND ONCOLOGY [place], [place] [address] 11/02/2024 12:00 PM EDT Appointment [place] [address] 11/02/2024 1:00 PM EDT Office [place] [address] Magdalena Peralta MD [facility] [place] [address] 03/01/2025 4:15 PM EDT Office Visit Dermatology at [place] [address] [facility] [place] [phone] Marek Bonilla MD [address], [place] [address] documented as of this encounter Procedures Procedure [...] ? Procedure Date: 06/03/2016 ? A #: [id number] ? Primary Physician: Fanny, Nitesh Shields ? Case #: [id number] ? File Name: [id number] ? Catheterization Order Number: [id number] ? [facility] ? Final Report [place], [place] ? Patient Name: ? Purnima M. Kirstie ? ID#: ?[id number] ? : ?1955 ? Procedure Date: ? [...] no symptom, no angina (w/i 14 days). [place] ?Cardiovascular Society angina class was 0. This [...] by: Nitesh Escobedo, M.D. ? Report Finalized: 06/03/2016 ??10:04 ? Report Last Ammended: 09/21/2016 ??09:37 ? Procedure Note Nitesh Escobedo MD - 09/21/2016 [facility] Cardiac Catheterization/Intervention Report Patient Name: Purnima Thacker Procedure Date: 06/03/2016 A #: [id number] Primary Physician: Nitesh Escobedo Case #: [id number] File Name: [id number] Catheterization Order Number: [id number] [facility] FinalReport [place], [place] Patient Name: Purnima Thacker ID#:[id number] :1955 Procedure Date: June 03, 2016 Case [...] with: no symptom, no angina (w/i 14 days).[place] Cardi[employer] Society angina class was 0. This [...] etiology documented in this encounter Care Teams Barrel Straightener Relationship Specialty Start Date End Date Deborah Quiroga, AIRCRAFT MACHINIST PCP - General Family Medicine 03/24/16 02/04/23 documented as of this encounter
--- OUTSIDE RECORDS SUMMARY | 2024-06-06 14:05 | XMS_ITS | Encounter Summary ---
Author Organization [facility] Address [facility] [place] [address] Care Team Providers Care Plant Scientist Name Role Phone Junaid Deborah Shields APRN Primary Care Provider Encounter Details Date Type Department Care Team (Late st Contact Info) Description 07/17/2016 9:00 AM EST Office Visit Hematology [place] [address] Markel Borjas MD [facility] [place] [address] Neutropenia, unspecified type Social History Tobacco Use [...] AM EST Hematology Outpatient Clinic [facility] Hematology Outpatient Consult Note CC: 60 [...] TOUCH PREP, CLOT SECTION, CORE ??BIOPSY); [OSR# [id number], COLLECTED 06/23/2016, 19 SLIDES]: ?1. 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 Labs will be drawn at [facility] next week Imaging As above - [...] leukopenia. Will consi kanwal talking to pt's digital business analyst about a switch from [facility] to [...] the original note were not included. N [facility] [phone] Date: 07/17/16 Patient Name: Purnima Thacker : 1955 Diagnosis: neutropenia Referral to [site]: [facility] Orders: ? Labs: Fax results to . [x] Draw CBC, copper level, CMV PCR, mononucleosis screen on 07/20 Repeat CBC on 07/30 (to measure response of WBC after Neulasta) ? Growth factor: [x] Neulasta 6mg SQ injection x 1 on 07/20/2016 Signature: Markel Borjas MD beeper # [id number] documented in this encounter Plan of Treatment Upcoming Encounters Date Type Department Care Team (Late st Contact Info) Description 06/23/2024 2:00 PM EST Office Visit Hematology [place] [address] Markel Borjas MD [facility] [place] [address] 11/02/2024 12:00 PM EDT Appointment [place] [address] 11/02/2024 1:00 PM EDT Office [place] [address] Magdalena Peralta MD [facility] [place] [address] 03/01/2025 4:15 PM EDT Office Visit Dermatology at [place] [address] [facility] [address] Marek Bonilla MD [address], [place] [address] documented as of this encounter Results * (ABNORMAL) CBC (with Diff) (07/31/2016 9:40 AM EST) [facility] White Blood Cell 2.23(EXTER NAL/ABN) 4.4 [...] * Mononucleosis Screen (07/20/2016 10:30 AM EST) [facility] Mononucleosis Screen neg neg - neg EXTERNAL LAB Blood specimen (specimen) 07/20/2016 10:30 AM EST Markel Borjas MD IMMUNOLOGY ORDERAB LES EXTERNAL LAB * Copper, serum (07/20/2016 10:30 AM EST) [facility] Copper (NOVEMBER) 1.09 0.75 - 1.45 EXTERNAL LAB Blood specimen (specimen) 07/20/2016 10:30 AM EST Markel Borjas MD LAB SEND OUT ORDER JODIE Performing Organization Address City/[facility]/ZIP Co de Phone Number EXTERNAL LAB * CMV PCR, Quantitative (07/20/2016 10:30 AM EST) CMV PCR,Quantitati ve undetected EXTERNAL LAB Blood specimen (specimen) 07/20/2016 10:30 AM EST Markel Borjas MD MOLECULAR ORDERABL ES Performing Organization Address [facility] Co de Phone [...] Performing Organization Address [facility] Co de Phone Number EXTERNAL LAB documented in this encounter Visit Diagnoses Diagnosis Neutropenia, unspecified type documented in this encounter Care Teams Plant Scientist Relationship Specialty Start Date End Date Deborah Quiroga, [employer] TANKER DRIVER PCP - General Family Medicine 03/24/16 02/04/23 documented as of this encounter
--- OUTSIDE RECORDS SUMMARY | 2024-06-06 14:05 | XMS_ITS | Encounter Summary ---
Author Organization [facility] Address [facility] [place] [address] Care Team Providers Care Wastewater Analyst Lab Analyst Name Role Phone Ashley Quirogazac Shields APRN Primary Care Provider +1- [phone] Encounter Details Date Type Department Care Team (Late st Contact Info) Description 07/03/2016 External Results Hematology [place] [address] Matthew Cervantes, DO [address] [place] [address] Social History Tobacco Use Types Packs/Day Years [...] Office Visit Hematology [place] [address] Markel Borjas MD [facility] DR [place] [address] 11/02/2024 12:00 PM EDT Appointment [place] [address] 11/02/2024 1:00 PM EDT Office [place] [address] Magdalena Peralta MD [facility] [place] [address] 03/01/2025 4:15 PM EDT Office Visit Dermatology at [place] [address] [place] [phone] Marek Bonilla MD [address], [place] [place] [address] documented as of this encounter Procedures Procedure Name Priority Date/Time Associated Diagnosis Comments BONE MARROW ASPIRATION PERFO RMED WITH BONE MARRROW BIOPSY Routine 06/28/2016 documented in this encounter Results * BONE MARROW ASPIRATION PREFORMED WITH BONE MARRROW BIOPSY (06/28/2016) Matthew Cervantes DO GENERAL SURGI DANIEL ORDERABLES documented in this encounter Visit Diagnoses Not on filedocumented in this encounter Care Teams Wastewater Analyst Lab Analyst Relationship Specialty Start Date End Date Deborah Quiroga APRN PCP - General Family Medicine 03/24/16 02/04/23 documented as of this encounter
--- OUTSIDE RECORDS SUMMARY | 2024-06-06 14:05 | XMS_ITS | Encounter Summary ---
[place] [address] Care Team Providers Care Orthotic Aide Name Role Phone Deborah Quiroga ANURAG Primary Care Provider +1- [phone] Reason for Visit * Reason Onset Date Comments Medical Care Coordination 07/17/2016 Encounter Details Date Type Department Care Team ([facility] Contact Info) Description 07/17/2016 Telephone Hematology [place] [address] Alexandrea Greenwood RN Medical Care Coordination Social [...] 07/17/2016 12:07 PM EST Message received from escrow secretary: Injection/Infusion Referral Call placed to [phone]). Spoke w/ Pasquale. Services to be provided for pt are: Labs @ 10am ([facility]) & Neulasta @ 11am on 07/20/16, CBC only on 07/30/16 Pasquale confirmed they would provide services to pt and I left [facility] [place] pt to call for appt info. Pt demographics, office note, med list and orders faxed to [facility] documented in this encounter Plan of Treatment Upcoming Encounters Date Type Department Care Team (Late st Contact Info) Description 06/23/2024 2:00 PM EST Office Visit Hematology [place] [address] Markel Borjas MD [facility] [address] [place] [address] 11/02/2024 12:00 PM EDT Appointment [place] [phone] 11/02/2024 1:00 PM EDT Office [place] [phone] Magdalena Peralta MD [facility] [place] [address] 03/01/2025 4:15 PM EDT Office Visit Dermatology at [place] [address] [facility] [place] [address] Marek Bonilla MD [address], [place] [address] documented as of this encounter Visit Diagnoses Not on filedocumented in this encounter Care Teams Orthotic Aide Relationship Specialty Start Date End Date Deborah Quiroga APRN PCP - General Family Medicine 03/24/16 02/04/23 documented as of this encounter
--- OUTSIDE RECORDS SUMMARY | 2024-06-06 14:05 | XMS_ITS | Encounter Summary ---
Author Organization [facility] [place] [address] Care Team Providers Care Security Field Supervisor Name Role Phone Ashley Quirogazac Shields APRN Primary Care Provider +1 [phone] Encounter Details Date Type Department Care Team (Late st Contact Info) Description 07/22/2016 External Results Hematology and Oncology at [place] [phone] Alexandrea Greenwood RN Neutropenia, unspecified type Social [...] EST Office Visit Hematology [place] [address] Markel Borjas MD [facility] [address] HEMATOLOGY [place] [address] 11/02/2024 12:00 PM EDT Appointment [place] [address] 11/02/2024 1:00 PM EDT Office Visit Rheumatology at [place] [phone] Magdalena Peralta MD [facility] [place] [address] 03/01/2025 4:15 PM EDT Office Visit Dermatology at [place] [address] [place] [address] Marek Bonilla MD [address], [place] [address] documented as of this encounter Procedures Procedure Name Priority Date/Time Associated Diagnosis Comments COPPER, SERUM Routine 07/20/2016 10:30 AM EST Neutropenia, unspecified type CMV PCR, QUANTITATIVE Routine 07/20/2016 10:30 AM EST Neutropenia, unspecified type MONONUCLEOSIS SCREEN (APD/[facility]) Routine 07/20/2016 10:30 AM EST Neutropenia, unspecified type CBC (WITH DIFF) Routine 07/20/2016 10:30 AM EST Neutropenia, unspecified type documented in this encounter Results * Copper, serum (07/20/2016 10:30 AM EST) Copper (NOVEMBER) 1.09 0.75 - 1.45 EXTERNAL LAB Blood specimen (specimen) 07/20/2016 10:30 AM EST Markel Borjas MD LAB SEND OUT ORDER JODIE EXTERNAL LAB * CMV PCR, Quantitative (07/20/2016 10:30 AM EST) CMV PCR,Quantitati ve undetected EXTERNAL LAB Blood specimen (specimen) 07/20/2016 10:30 AM EST Markel Borjas MD MOLECULAR ORDERABL ES EXTERNAL LAB * Mononucleosis Screen (07/20/2016 10:30 [...] type documented in this encounter Care Teams Security Field Supervisor Relationship Specialty Start Date End Date Deborah Quiroga APRN PCP - General Family Medicine 03/24/16 02/04/23 documented as of this encounter
--- OUTSIDE RECORDS SUMMARY | 2024-06-06 14:05 | XMS_ITS | Encounter Summary ---
Author Organization [facility] Address [facility] [place] [address] Care Team Providers Care Marketing Programs Specialist Name Role Phone Ashley Quirogan Cornelius ANURAG Primary Care Provider +1- [phone] Encounter Details Date Type Department Care Team (Late st Contact Info) Description 06/09/2016 Orders Only Hematology [place] [address] Nitesh Pina Jr., MD [facility] [address] [place] [address] Cyclical neutropenia Social History Tobacco Use Types [...] EST Office Visit Hematology [place] [address] Markel Borjas MD [facility] [address] [place] [address] 11/02/2024 12:00 PM EDT Appointment [place] [address] 11/02/2024 1:00 PM EDT Office [place] [address] Magdalena Peralta MD [facility] [place] [address] 03/01/2025 4:15 PM EDT Office Visit Dermatology at [place] [address] [place] [address] Marek Bonilla MD [address], [place] [address] documented as of this encounter Results * Immunophenotyping Flow Cytometry (06/09/2016 4:53 PM EST) Immunophenotyping Flow See Comment [facility] Comment: When completed by the Pathologist, the Flow Cytometry Report ([id number]) will display under the Pathology Results section within eD. Specimen of unknown material (specimen) 06/09/2016 4:53 PM EST 06/09/2016 5:00 PM EST Narrative Resulting Agency Comment Spec In Lab Nitesh Pina Jr., MD HEMATOLOGY ORDERABLE S [facility] [place] [address] documented in this encounter Visit Diagnoses Diagnosis Cyclical neutropenia Cyclic neutropenia documented in this encounter Care Teams Marketing Programs Specialist Relationship Specialty Start Date End Date Deborah Quiroga APRN PCP - General Family Medicine 03/24/16 02/04/23 documented as of this encounter
--- OUTSIDE RECORDS SUMMARY | 2024-06-06 14:05 | XMS_ITS | Encounter Summary ---
Author Organization [facility] [place] [address] Care Team Providers Care Gas Appliance Servicer Name Role Phone Eitan Danni OSBORN Primary Care Provider Encounter Details Date Type Department Care Team (Late st Contact Info) Description 01/23/2014 9:25 AM EDT - 01/23/2014 10:25 AM EDT [place] [address] Alan Jacobson MD [facility] [place] [address] CARDIAC CATHETERIZATION Social History Tobacco Use Types [...] by your doctor, do not take any fclz-yic-jsrxmjy medicines or herbal preparations without first discussing this with your doctor or pharmacist. There is the possibility of side effect and interactions when these are combined. Follow up Care Who to Call with Questions or Problems If there are any questions or problems that you think might be related to your cardiac cath or angioplasty, contact the watch repairer content curator by calling [facility] at . documented in this encounter Medications [...] EST Office Visit Hematology [place] [address] Markel Borjas MD [facility] DR HEMAT[place] [address] 11/02/2024 12:00 PM EDT Appointment [place] [address] 11/02/2024 1:00 PM EDT Office [place] [address] Magdalena Peralta MD [facility] DR RHEUMATOLOGY DEPT [place], [place] [phone] 03/01/2025 4:15 PM EDT Office Visit Dermatology at [place] [address] [facility] [place] [address] Marek Bonilla MD [address], [place] [address] documented as of this encounter Procedures Procedure Name Priority Date/Time Associated Diagnosis Comments ECHOCARDIOGRAM TRANSTHORACIC Routine 01/23/2014 3:17 PM EDT SOB (shortness of breath) documented in this encounter Results * Echocardiogram Transthoracic(Leb) (01/23/2014 3:17 PM EDT) EF 50 HEARTStylesight SYSTEM Anatomical Region Laterality Modality Other 01/23/2014 Narrative 01/23/2014 4:35 PM EDT Procedure: ? Transthoracic Echocardiogram Patient: ? ANDREW ONESIMO M ?(Age): 1955(58) Med Rec#: ?[id number] ? Sex: ?F ? Site Loc: ?[facility] [place] [place] ? Ht / Wt: ??158(cm)/93(kg) Pt. Loc: ? Adult Floor ?BSA: ?2.02 Study Date: ?01/23/2014 ? Pt. Type: Inpatient Tape: ? Referring: Lee Kincaid ([id number]) Referring: ANNALISA Clinical Quality Assurance Associate: Miguel Beverly Diagnosis:CPT Code(s): ??Echo Full (20738), ??Spectral Doppler (11386), Color Doppler (08977), Indication(s): ??Aortic stenosis Rhythm: Sinus HR ?BP [...] ? Mid-Inferior ?Hypokinetic ? Mid-Inferoseptal ?Hypokinetic ? [place]-Septal ? Hypokinetic ? [place]-Anterior ? Hypokinetic ? [place]-Lateral ?Hypokinetic ? [place]-Inferior ? Hypokinetic ? [place]-Tip ?Hypokinetic ? Chambers ?Value ?Units (Range) ? [...] Patient: ANDREW Mejias (Age): 1955(58) Med Rec#: [id number] Sex: F Site Loc: [facility] [place] [place] Ht / Wt: 158(cm)/93(kg) Pt. Loc: Adult Floor BSA: 2.02 Study Date: 01/23/2014 Pt. Type: Inpatient Tape: Referring: Lee Kincaid ([id number]) Referring: ANNALISA Clinical Quality Assurance Associate: Miguel Beverly Diagnosis:CPT Code(s): Echo Full (82577), Spectral Doppler (40825), Color Doppler (38629), Indication(s): Aortic stenosis Rhythm: Sinus HR BP [...] Hypokinetic Mid-Posterolateral Hypokinetic Mid-Inferior Hypokinetic Mid-Inferoseptal Hypokinetic [place]-Septal Hypokinetic [place]-Anterior Hypokinetic [place]-Lateral Hypokinetic [place]-Inferior Hypokinetic [place]-Tip Hypokinetic Chambers Value Units (Range) IVSd 2D [...] [facility] Lee iKncaid MD ECHO ORDERABLES documented in this encounter [...] Routine 1046 (Given - Provid er: Nora Kang, VALDO) diphenhydrAMINE (BENADRYL) capsule 25 mg (COMPLETED) 25 mg, Oral, ONCE, 1 dose, On Wed01/23/14 at 0845, Cath (Day of Procedure), Routine 1046 (Given - Provid er: Nora Kang, RN) sodium chloride 0.9 % flush 5 [...] Nitesh Stern, RN)1224 (Given - Provider: Nitesh Stern, RN) fentaNYL 50mcg/mL injection (CANCELED) ONCE PRN, Starting on Wed01/23/14 at 1231, Until Wed01/23/14 at 1239, Pain, Cath (Intra-Procedure), Routine 1231 (Given - Provid er: Nitesh Stern, VALDO) heparin (porcine) injection (CANCELED) ONCE PRN, Starting on Wed01/23/14 at 1131, Until Wed01/23/14 at 1224, Cath (Intra-Procedure), Routine 1131 (Given - Provid er: Nitesh tSern RN) iohexol (OMNIPAQUE) 350 mg iodine/mL injection [...] RN) documented in this encounter Care Teams Gas Appliance Servicer Relationship Specialty Start Date End Date Danni Laird APRN [address] [place] [address] PCP - General 01/23/14 11/11/14 documented as of this encounter
--- OUTSIDE RECORDS SUMMARY | 2024-06-06 14:05 | XMS_ITS | Encounter Summary ---
Author Organization [facility] Address [facility] [place] [address] Care Team Providers Care Closing Agent Name Role Phone Deborah Quiroga APRN Primary Care Provider [phone] Encounter Details Date Type Department Care Team (Latest Contact Info) Description 05/19/2016 11:52 AM EDT - 05/19/2016 11:59 PM EDT Hospital Encounter XRay at [address] [place] [address] Alirio Esparza MD Nonrheumatic aortic valve stenosis [...] Hematology [place] [address] Markel Borjsa MD [facility] [place] [address] 11/02/2024 12:00 PM EDT Appointment [place] [address] 11/02/2024 1:00 PM EDT Office [place] [address] Magdalena Peralta MD [facility] [place] [address] 03/01/2025 4:15 PM EDT Office Visit Dermatology at [address] [place] [phone] Marek Bonilla MD [address], [place] [address] documented as of this encounter Procedures Procedure [...] disorders documented in this encounter Care Teams Closing Agent Relationship Specialty Start Date End Date Deborah Quiroga, ANURAG PCP - General Family Medicine 03/24/16 02/04/23 documented as of this encounter
--- OUTSIDE RECORDS SUMMARY | 2024-06-06 14:05 | XMS_ITS | Encounter Summary ---
Author Organization [facility] [place] [address] Care Team Providers Care Citrus Picker Name Role Phone Junaid, Deborah Shields APRN Primary Care Provider [phone] Encounter Details Date Type Department Care Team (Late st Contact Info) Description 05/19/2016 10:00 AM EDT Office Visit [place] [phone] Alirio Esparza MD Nonrheumatic aortic valve stenosis [...] EST Office Visit Hematology and Oncology at [place] [phone] Markel Borjas MD [facility] [address] HEMATOLOGY [place] [address] 11/02/2024 12:00 PM EDT Appointment [place] [address] 11/02/2024 1:00 PM EDT Office [place] [address] Magdalena Peralta MD [facility] [place] [address] 03/01/2025 4:15 PM EDT Office Visit Dermatology at [place] [address] [place] [address] Marek Bonilla MD [address], [place] [address] documented as of this encounter Results * [...] (Bezet) 448 ms MUSE SYSTEM Calculated P Remlap 37 degrees MUSE SYSTEM Calculated R Remlap 31 degrees MUSE SYSTEM Calculated T Remlap 25 degrees MUSE SYSTEM INTERPRETATION Normal sinus [...] the following links into your internet browser. [email or web address] Blood specimen (specimen) 05/19/2016 11:32 AM EDT 05/19/2016 11:41 AM EDT Narrative Resulting Agency Comment Spec In Lab Alirio Esparza MD [place] [address] documented in this encounter Visit Diagnoses Diagnosis Nonrheumatic aortic valve stenosis Aortic valve disorders Nonrheumatic aortic valve stenosis Aortic valve disorders documented in this encounter Care Teams Citrus Picker Relationship Specialty Start Date End Date Deborah Quiroga, SAMPLE SAWYER PCP - General Family Medicine 03/24/16 02/04/23 documented as of this encounter
--- OUTSIDE RECORDS SUMMARY | 2024-06-06 14:05 | XMS_ITS | Encounter Summary ---
[place] [address] Care Team Providers Care Last Model Maker Name Role Phone [place] Wilkes MD Primary Care Provider [phone] Reason for Visit * Reason Onset Date Comments Other 01/18/2014 Encounter Details Date Type Department Care Team (Late st Contact Info) Description 01/18/2014 Telephone Cardiology at [address] [address] Jesusita Garces Other Social History [...] EST Office Visit Hematology [place] [address] Markel Borjas MD [facility] [address] [place] [address] 11/02/2024 12:00 PM EDT Appointment Pulmonology at [place] [address] 11/02/2024 1:00 PM EDT Office Visit Rheumatology at [place] [phone] Magdalena Peralta MD [facility] [place] [address] 03/01/2025 4:15 PM EDT Office Visit Dermatology at [place] [address] [facility] [place] [address] Marek Bonilla MD [address], [place] [address] documented as of this encounter Visit Diagnoses Not on filedocumented in this encounter Care Teams Last Model Maker Relationship Specialty Start Date End Date [place] Wilkes MD [facility] PCP - General 06/24/10 01/19/14 documented as of this encounter
--- OUTSIDE RECORDS SUMMARY | 2024-06-06 14:05 | XMS_ITS | Encounter Summary ---
Author Organization [facility] Address [facility] [place] [address] Care Team Providers Care Minister Helper Name Role Phone Ashley Quirogazac Shields APRN Primary Care Provider [phone] Encounter Details Date Type Department Care Team (Latest Contact Info) Description 05/19/2016 11:20 AM EDT Laboratory Appointment Lab at [place] [phone] Nonrheumatic aortic valve stenosis Social History Tobacco [...] EST Office Visit Hematology and Oncology at [place] [phone] Markel Borjas MD [facility] [address] [place]AT[place] [address] 11/02/2024 12:00 PM EDT Appointment Pulmonology at [place] [phone] 11/02/2024 1:00 PM EDT Office Visit Rheumatology at [place] [phone] Magdalena Peralta MD [facility] [place] [address] 03/01/2025 4:15 PM EDT Office Visit Dermatology at [place] [address] [place] [address] Marek Bonilla MD [address], [place] [address] documented as of this encounter Procedures Procedure Name Priority Date/Time Associated Diagnosis Comments SCAN, PERIPHERAL BLOOD Routine 05/19/2016 11:32 AM EDT HEMOGRAM Routine 05/19/2016 11:32 AM EDT Nonrheumatic aortic valve stenosis DIFFERENTIAL, AUTOMATED Routine 05/19/2016 11:32 AM EDT Nonrheumatic aortic valve stenosis TYPE AND SCREEN, SDP (FUTURE SURGERY, [facility] SAME DAY PROGRAM ONLY) Routine 05/19/2016 11:32 [...] (05/19/2016 11:32 AM EDT) Plat estimate Normal [facility] RBC Morphology Normal [facility] Blood specimen (specimen) 05/19/2016 11:32 AM EDT 05/19/2016 11:41 AM EDT Narrative Resulting Agency Comment Spec In Lab Alirio Esparza MD HEMATOLOGY ORDERABL ES [facility] [place] [address] * (ABNORMAL) Differential, Automated (05/19/2016 11:32 AM EDT) Neutrophil % 25.9 % [facility] Neutrophil Absolute 0.42(Crit ical) 1.70 [...] [facility] Monocyte % 13.0 % [facility] Monocyte Abs 0.2(L) 0.3 - 0.9 x10(3)/mc L [facility] Eos % 0.6 % [facility] Eosinophils Abs 0.0 0.0 - 0.4 x10(3)/mc L [facility] Basophil % 0.6 % [facility] [place]/ZIP Co de Phone Number [facility] [place] [address] * (ABNORMAL) Hemogram (05/19/2016 11:32 AM EDT) [...] [facility] NRBC% auto 0.0 % [facility] NRBC Absolute 0.000 0.000 - 0.000 x10(3)/mc L [facility] Blood specimen (specimen) 05/19/2016 11:32 AM EDT 05/19/2016 11:41 AM EDT Narrative Resulting Agency Comment Spec In Lab Alirio Esparza MD HEMATOLOGY ORDERABL ES [facility] [place] [address] * Antibody screen (05/19/2016 11:32 AM EDT) [...] BANK [facility] [place] Performing Organization Address City/[facility]/ZIP Co de Phone Number [facility] [place] [address] * ABO/Rh Typing (05/19/2016 11:32 AM EDT) Pathologist [facility] ABORH Type B Pos [facility] Blood specimen (specimen) 05/19/2016 11:32 AM EDT 05/19/2016 11:35 AM EDT Narrative Resulting Agency Comment Spec In Lab Alirio Esparza MD BLOOD BANK LAB [place] [facility] [place] [address] * Basic Metabolic Panel (non-fasting) (05/19/2016 11:32 AM EDT) [facility] Glucose 86 65 - 199 mg/dL [place] [...] Est Glomerular Filtration Rate 60 >=60 [facility] [...] the following links into your internet browser. [email or web address] Blood specimen (specimen) 05/19/2016 11:32 AM EDT 05/19/2016 11:41 AM EDT Narrative Resulting Agency Comment Spec In Lab Alirio Esparza MD CHEMISTRY ORDERABLE S [facility] [place] [address] documented in this encounter Visit Diagnoses Diagnosis Nonrheumatic aortic valve stenosis Aortic valve disorders documented in this encounter Care Teams Minister Helper Relationship Specialty Start Date End Date Deborah Quiroga APRN PCP - General Family Medicine 03/24/16 02/04/23 documented as of this encounter
--- OUTSIDE RECORDS SUMMARY | 2024-06-06 14:05 | XMS_ITS | Encounter Summary ---
Author Organization [facility] [place] [address] Care Team Providers Care Costume Technician Name Role Phone Eitan Danni ANURAG Primary Care Provider [phone] Encounter Details Date Type Department Care Team (Late st Contact Info) Description 01/22/2014 Telephone Cardiology at [address] [phone] Cynthia Arrington LPN Social History Tobacco Use [...] EST Office Visit [place] [phone] Markel Borjas MD [facility] [address] [place] [address] 11/02/2024 12:00 PM EDT [place]oint[place] [phone] 11/02/2024 1:00 PM EDT Office [place] [address] Magdalena Peralta MD [facility] [place] [address] 03/01/2025 4:15 PM EDT Office Visit Dermatology at [place] [address] [facility] [place] [address] Marek Bonilla MD [address], [place] DERMATOLOGY [place], [place] [phone] documented as of this encounter Visit Diagnoses Not on filedocumented in this encounter Care Teams Costume Technician Relationship Specialty Start Date End Date Danni Laird APRN [address] [place] [address] PCP - General 01/23/14 11/11/14 documented as of this encounter
--- OUTSIDE RECORDS SUMMARY | 2024-06-06 14:05 | XMS_ITS | Encounter Summary ---
Author Organization [facility] [place] [address] Care Team Providers Care Project Manager Senior Name Role Phone Ashley Quirogazac Shields APRN Primary Care Provider [phone] Encounter Details Date Type Department Care Team (Late st Contact Info) Description 03/24/2016 Notes Only [place] [phone] Alfa Lua Social History Tobacco Use Types [...] assessments completed: Wadsworth Score: 6/6 IADL: 7/7 Infection Control Preventionist Strength Trials: 18.4, 15.0, 16.8 (right hand dominant) 5 meter walk test in seconds x3: 4.98, 4.88, 4.45 KCCQol: 98% Alfa Lua documented in this encounter Plan of Treatment Upcoming Encounters Date Type Department Care Team (Late st Contact Info) Description 06/23/2024 2:00 PM EST Office Visit Hematology [place] [address] Markel Borjas MD [facility] [address] [place] [address] 11/02/2024 12:00 PM EDT Appointment Pulmonology at [place] [address] 11/02/2024 1:00 PM EDT Office Visit [place] [address] Magdalena Peralta MD [facility] [place] [address] 03/01/2025 4:15 PM EDT Office Visit Dermatology at [place] [address] [facility] [place] [phone] Marek Bonilla MD [address] [place] [address] documented as of this encounter Visit Diagnoses Not on filedocumented in this encounter Care Teams Project Manager Senior Relationship Specialty Start Date End Date Deborah Quiroga APRN PCP - General Family Medicine 03/24/16 02/04/23 documented as of this encounter
--- OUTSIDE RECORDS SUMMARY | 2024-06-06 14:05 | XMS_ITS | Encounter Summary ---
Author Organization [facility] Address [facility] [place] [address] Care Team Providers Care Assistant Service Manager Name Role Phone Deborah Quiroga APRN Primary Care Provider [phone] Reason for Visit * Reason Comments Schedule Office Case * Consultation (Routine) - Closed Specialty Diagnoses / Procedures Referred By Contac t Referred To Contact Hematology and Oncology Diagnoses Leukopenia Neutropenia LEUKOPENIA W/NEUTROPENIA Procedures TC PEGFILGRASTIM, 6MG, INJECTION LEUKOPENIA W/NEUTROPENIA Alirio Espraza MD [facility] [place] [address] Mario Alberto Ramos Jr., MD [facility] [place] [address] Referral ID Status Reason Start Date Expiration Date V isits Requested Visits Authorized [id number] Closed Consult, Test & Treat 07/17/2016 07/17/2017 1 1 Encounter Details Date Type Department Care Team (Late st Contact Info) Description 06/09/2016 3:00 PM EST Office Visit [place] [address] Mario Alberto Ramos Jr., MD [facility] HEMATOLOGY [place] [address] Cyclical neutropenia Social History Tobacco Use Types [...] PM EST Hematology Outpatient Clinic [facility] [...] Unknown See Comment Flow Cytometry Report Unknown [id number] ... HematoPathology: Flow Cytometry DIAGNOSIS 1. No [...] EST Office Visit [place] [address] Markel Borjas MD [facility] [address] [place] [address] 11/02/2024 12:00 PM EDT [place] [address] 11/02/2024 1:00 PM EDT Office [place] [address] Magdalena Peralta MD [facility] [place] [address] 03/01/2025 4:15 PM EDT Office Visit Dermatology at [place] [address] [place] [address] Marek Bonilla MD [address] [place] [address] documented as of this encounter Procedures Procedure [...] (06/09/2016 4:53 PM EST) Flow Cytometry Report [id number] ?Location: The signing pathologist has (i) examined [...] Clinical Flow Cytometry Laboratory at [facility]. It has not been cleared or [...] high complexity clinical laboratory testing. SPECIMEN PROCESSING [id number] Cells for immunophenotypic analysis were derived from peripheral blood. ??CD45 vs side scatter gating was utilized to identify a lymphoid analysis region that comprises approximately 49-51% of all cells. The following markers were assessed: CD2, CD3, CD4, CD5, CD7, CD8, CD10, CD16, CD19, CD45, CD56, CD57, kappa light chain, and lambda light chain. CLINICAL INFORMATION 60 yo female with neutropenia. LGL panel requested. [facility] 06/09/2016 4:53 PM EST Mario Alberto Ramos Jr., MD PATHOLOGY/CYTOLOGY O RDERABLES Performing Organization Address City/[facility]/ZIP Co de Phone Number [facility] [place] [address] * Scan, Peripheral Blood (06/09/2016 4:53 PM EST) Pathologist [facility] Plat estimate Normal [facility] RBC Morphology Normal [facility] Blood specimen (specimen) 06/09/2016 4:53 PM EST 06/09/2016 5:00 PM EST Narrative Resulting Agency Comment Spec In Lab Mario Alberto Ramos Jr., MD HEMATOLOGY ORDERABLE S Performing Organization Address City/[facility]/ZIP Co de Phone Number [facility] [place] [address] * (ABNORMAL) Differential, Automated (06/09/2016 4:53 PM EST) Pathologist [facility] Neutrophil % 27.7 % [facility] Neutrophil Absolute 0.48(Crit ical) 1.70 - 6.10 x10(3)/ L [facility] Comment: Matches Previous Results.. This result has been called to NOT CALLED by Jesusita Argueta on 06 09 2016 at 1817, and has not been read back. MATCHES PREVIOUS RESULTS Lymph % 57.2 % [facility] Lymphocytes Abs 1.0 0.9 - 3.2 x10(3)/mc L [facility] Monocyte % 13.3 % [facility] Monocyte Abs 0.2(L) 0.3 - 0.9 x10(3)/ L [facility] Eos % 0.6 % [facility] Eosinophils Abs 0.0 0.0 - 0.4 x10(3)/[facility] Basophil % 1.2 % [facility] Baso Absolute 0.0 0.0 - 0.1 x10(3)/[facility] Immature Gran % 0.00 % [facility] Comment: Immature granulocytes(IG's)percentage and absolute count will include metamyelocytes, myelocytes, and promyelocytes. Blood smears from CBCs yielding IG's will be scanned manually for concordance. If this scan disagrees with the automated IG or if promyelocytes are noted, a manual differential will be performed. Immature Gran Absolute 0.00 0.00 - 0.04 x10(3)/ L [facility] Blood specimen (specimen) 06/09/2016 4:53 PM EST 06/09/2016 5:00 PM EST Narrative Resulting Agency Comment Spec In Lab Mario Alberto Ramos Jr., MD HEMATOLOGY ORDERABLE S [facility] [place] [address] * (ABNORMAL) Hemogram (06/09/2016 4:53 PM EST) White Blood Cell 1.7(Criti gabrielle) 4.0 - 9.5 x10(3)/ L [facility] Red Blood Cell 3.92(L) 4.00 - 5.21 x10(6)/mc L [facility] Hemoglobin 12.4 11.7 - 15.5 gm/dL [facility] Hematocrit 36.7 35.7 - 45.8 % [facility] Mean Cell Volume 93.6 82.6 - 94.4 fL [facility] Mean Cell Hemoglobin 31.6 27.1 - 32.0 pg [facility] Mean Cell Hemoglobin Concentration 33.8 31.7 - 35.0 gm/dL [facility] Platelet 234 145 - 357 x10(3)/mc L [facility] RDW Standard Deviation 39.8 37.0 - 46.0 fL [facility] RDW coefficient of variation 11.8 11.5 - 14.1 % [facility] Mean Platelet Volume 8.6 7.6 - 12.9 fL [facility] NRBC% auto 0.0 % [facility] NRBC Absolute 0.000 0.000 - 0.000 x10(3)/mc L [facility] Blood specimen (specimen) 06/09/2016 4:53 PM EST 06/09/2016 5:00 PM EST Narrative Resulting Agency Comment Spec In Lab Mario Alberto Ramos Jr., MD HEMATOLOGY ORDERABLE S Performing Organization Address City/State/[facility] Co de Phone Number [facility] [place] [address] * Immunophenotyping Flow Cytometry (06/09/2016 4:53 PM EST) Immunophenotyping Flow See Comment [facility] Comment: When completed by the Pathologist, the Flow Cytometry Report ([id number]) will display under the Pathology Results section within [facility]. Specimen of unknown material (specimen) 06/09/2016 4:53 PM EST 06/09/2016 5:00 PM EST Narrative Resulting Agency Comment Spec In Lab Mario Alberto Ramos Jr., MD HEMATOLOGY ORDERABLE S [facility] [place] [address] documented in this encounter Visit Diagnoses Diagnosis Cyclical neutropenia Cyclic neutropenia documented in this encounter Care Teams Assistant Service Manager Relationship Specialty Start Date End Date Deborah Quiroga, STRAIGHTENING ROLL OPERATOR PCP - General Family Medicine 03/24/16 02/04/23 documented as of this encounter
--- OUTSIDE RECORDS SUMMARY | 2024-06-06 14:05 | XMS_ITS | Encounter Summary ---
Author Organization Formerly [facility] [place] [address] Care Team Providers Care Lace Paper Machine Operator Name Role Phone Mitchell Wilkes MD Primary Care Provider [phone] Encounter Details Date Type Department Care Team (Late st Contact Info) Description 01/19/2014 Orders Only Cardiology at [address] [address] Chele aRndolph PA [facility] DR CARDIOLOGY DEPT. [place], [place] [phone] Cardiomyopathy (Primary Dx) Social History Tobacco Use [...] EST Office Visit [place] [address] Markel Borjas MD [facility] DR HEMATOLOGY AND ONCOLOGY [place], [place] [id number] 11/02/2024 12:00 PM EDT [place] [address] 11/02/2024 1:00 PM EDT Office [place] [address] Magdalena Peralta MD [facility] [place] [address] 03/01/2025 4:15 PM EDT Office Visit Dermatology at [place] [address] [place] [phone] Marek Bonilla MD [address] [place] [address] documented as of this encounter Procedures Procedure [...] cardiomyopathies documented in this encounter Care Teams Lace Paper Machine Operator Relationship Specialty Start Date End Date Mitchell Wilkes MD [facility] PCP - General 06/24/10 01/19/14 documented as of this encounter
--- OUTSIDE RECORDS SUMMARY | 2024-06-06 14:05 | XMS_ITS | Encounter Summary ---
Author Organization [facility] Address [facility] [place] [address] Care Team Providers Care Bander Name Role Phone RomieDanni rouse ANURAG Primary Care Provider [phone] Encounter Details Date Type Department Care Team (Late st Contact Info) Description 01/23/2014 Orders Only Cardiology at [address] [address] Lee Kincaid MD [facility] [address] CARDIOLOGY [place], [place] [id number] SOB (shortness of breath) (Primary Dx) Social [...] EST Office Visit Hematology [place] [address] Markel Borjas MD [facility] [address] HEMATOLOGY [place] [address] 11/02/2024 12:00 PM EDT Appointment [place] [address] 11/02/2024 1:00 PM EDT Office [place] [address] Magdalena Peralta MD [facility] [place] [address] 03/01/2025 4:15 PM EDT Office Visit Dermatology at [place] [address] [place] [phone] Marek Bonilla MD [address], [address] [place] [address] documented as of this encounter Results * Echocardiogram Transthoracic(Leb) (01/23/2014 3:17 PM EDT) Pathologist [address] [employer] EF 50 HEART[employer] SYSTEM Anatomical Region Laterality Modality Other 01/23/2014 Narrative 01/23/2014 4:35 PM EDT Procedure: ? Transthoracic Echocardiogram Patient: ? KIRSTIE ECHOLS M ?(Age): 1955(58) Med Rec#: ?[id number] ? Sex: ?F ? Site Loc: ?[facility] ? Ht / Wt: ??158(cm)/93(kg) Pt. Loc: ? Adult Floor ?BSA: ?2.02 Study Date: ?01/23/2014 ? Pt. Type: Inpatient Tape: ? Referring: Lee Kincaid ([id number]) Referring: ANNALISA Plastic Die Maker Apprentice: Miguel Beverly Diagnosis:CPT Code(s): ??Echo Full (80690), ??Spectral Doppler (87428), Color Doppler (94522), Indication(s): ??Aortic stenosis Rhythm: Sinus HR ?BP [...] ? Mid-Inferior ?Hypokinetic ? Mid-Inferoseptal ?Hypokinetic ? [place]-Septal ? Hypokinetic ? [place]-Anterior ? Hypokinetic ? [place]-Lateral ?Hypokinetic ? [place]-Inferior ? Hypokinetic ? [place]-Tip ?Hypokinetic ? Chambers ?Value ?Units (Range) ? [...] Patient: KIRSTIE Mejias (Age): 1955(58) Med Rec#: [id number] Sex: F Site Loc: [facility] Ht / Wt: 158(cm)/93(kg) Pt. Loc: Adult Floor BSA: 2.02 Study Date: 01/23/2014 Pt. Type: Inpatient Tape: Referring: Lee Kincaid ([id number]) Referring: ANNALISA Plastic Die Maker Apprentice: Miguel Beverly Diagnosis:CPT Code(s): Echo Full (92688), Spectral Doppler (65319), Color Doppler (22139), Indication(s): Aortic stenosis Rhythm: Sinus HR BP [...] Hypokinetic Mid-Posterolateral Hypokinetic Mid-Inferior Hypokinetic Mid-Inferoseptal Hypokinetic [place]-Septal Hypokinetic [place]-Anterior Hypokinetic [place]-Lateral Hypokinetic [place]-Inferior Hypokinetic [place]-Tip Hypokinetic Chambers Value Units (Range) IVSd 2D [...] breath documented in this encounter Care Teams Bander Relationship Specialty Start Date End Date Danni Laird APRN [address] [place] [address] PCP - General 01/23/14 11/11/14 documented as of this encounter
--- OUTSIDE RECORDS SUMMARY | 2024-06-06 14:05 | XMS_ITS | Encounter Summary ---
Author Organization [facility] [place] [address] Care Team Providers Care Glued Wood Tester Name Role Phone Jerel Sofia Garcia APRN Primary Care Provider [phone] Encounter Details Date Type Department Care Team (Latest Contact Info) Description 11/12/2014 8:10 AM EDT - 11/12/2014 11:59 PM EDT Hospital [place] [phone] CLINIC, DR ABE Burrell, Antelmo Porter MD [facility] [address] [place], [place] [address] Discharge Disposition: Home Social History Tobacco Use [...] EST Office Visit Hematology [place] [address] Markel Borjas MD [facility] [address] [place] [address] 11/02/2024 12:00 PM EDT Appointment [place] [address] 11/02/2024 1:00 PM EDT Office [place] [address] Magdalena Peralta MD [facility] [place] [address] 03/01/2025 4:15 PM EDT Office Visit Dermatology at [place] [address] [place] [address] Marek Bonilla MD [address] [facility] [place] [address] documented as of this encounter Procedures Procedure [...] idiopathic orother dilated cardiomyopathy. Antelmo Burrell MD [facility] ORDERABLES documented in this encounter Visit [...] mLs documented in this encounter Care Teams Glued Wood Tester Relationship Specialty Start Date End Date Sofia Beltrán APRN [address] [place] [address] PCP - General 11/12/14 03/23/16 documented as of this encounter
--- OUTSIDE RECORDS SUMMARY | 2024-06-06 14:05 | XMS_ITS | Encounter Summary ---
Author Organization Formerly [facility] Address [facility] [place] [address] Care Team Providers Care Lathe Puller Name Role Phone Junaid, Deborah Shields APRN Primary Care Provider [phone] Reason for Visit * Auth/Cert Specialty Diagnoses / Procedures Referred By Crispin t Referred To Contact Diagnoses AVS Procedures CARDIAC CATHETERIZATION Referral ID Status Reason Start Date Expiration Date Visits Re quested Visits Authorized [id number] 1 1 Encounter Details Date Type Department Care Team (Late st Contact Info) Description 06/03/2016 7:30 AM EDT - 06/03/2016 8:30 AM EDT [place] [address] Mario Alberto Escobedo MD [facility] [place] [address] CARDIAC CATHETERIZATION Social History Tobacco Use Types [...] by your doctor, do not take any lfpe-bxq-lnubccd medicinesor herbal preparations without first discussing this with your doctor or pharmacist. There is the possibility of side effects and interactions when these are combined. Follow Up Care Who to call with questions or problems If there are any questions or problems that you think might be related to your cardiac cath or angioplasty, contact the coating mixer supervisor senior front end web developer by calling [facility] at . * Patient Instructions* Felicia Corrigan - 06/03/2016 9:33 AM EDT Cardiology Instructions Call your doctor if: Chest pain, dyspnea, pain or swelling in legs occurs. If you have non-emergent questions between now and the time of your follow up appointments: -During 8am-5pm Wednesday through Wednesday call [phone] to speak with a nurse in the cardiology clinic -All other times call [phone] and ask to speak to the dog show judge senior front end web developer. MEDICATIONS - restart your spironolactone, discontinue prior [...] Appointments: Primary care provider: Cardiology: Deborah Hahn, PRODUCTION SPECIALIST [phone] Follow up as planned or as needed. Dr. Esparza [phone] Other follow-up appointment: Hematology - Dr. Mario [...] EST Office Visit Hematology [place] [address] Markel Borjas MD [facility] [address] [place] [address] 11/02/2024 12:00 PM EDT Appointment [place] [address] 11/02/2024 1:00 PM EDT Office [place] [address] Magdalena Peralta MD [facility] [place] [address] 03/01/2025 4:15 PM EDT Office Visit Dermatology at [place] [address] [place] [address] Marek Bonilla MD [address] [place] [address] documented as of this encounter Procedures Procedure [...] AM EDT) Green Hold Sample in lab. [facility] Blood specimen (specimen) Venous Draw / Unknown 06/03/2016 11:45 AM EDT 06/03/2016 12:12 PM EDT Mario Alberto Escobedo MD CHEMISTRY ORDERABLES [facility] [place] [address] * Methylmalonic acid, serum (06/03/2016 11:45 AM EDT) Methylmalonic Acid (NOVEMBER) 0.21 <=0.40 nmol/mL [facility] Comment: Test Performed by: [address] [address] Civil Rights Investigator: Raymond Chaudhry II, M.D., Ph.D. Blood specimen (specimen) 06/03/2016 11:45 AM EDT 06/03/2016 1:57 PM EDT Narrative Resulting Agency Comment Spec In Lab Mario Alberto Escobedo MD LAB SEND OUT ORDERAB LES Performing Organization Address [facility] Co de Phone Number [facility] [place] [address] * Granulocyte Antibody (06/03/2016 11:45 AM EDT) Granulocyte Ab (NOVEMBER) Negative Not Applicable [facility] Comment: ADDITIONAL INFORMATION Method: Immunofluorescent Assay Performing Laboratory CLIA# [id number] This test was developed and its performance characteristics determined by [facility] in a manner consistent with CLIA requirements. This test has not been cleared or approved by the U.S. Food and Drug Administration. Test Performed by: [place] [address] Civil Rights Investigator: Raymond Chaudhry II, M.D., Ph.D. Blood specimen (specimen) 06/03/2016 11:45 AM EDT 06/03/2016 1:57 PM EDT Narrative Resulting Agency Comment Spec In Lab Mario Alberto Escobedo MD LAB SEND OUT ORDERAB LES Performing Organization Address [facility] Co de Phone Number [facility] [place] [address] * TSH (06/03/2016 11:45 AM EDT) Thyroid Stimulating Hormone 2.18 0.27 - 4.20 mcIU/mL [facility] Blood specimen (specimen) 06/03/2016 11:45 AM EDT 06/03/2016 12:11 PM EDT Narrative Resulting Agency Comment Spec In Lab Mario Alberto Escobedo MD CHEMISTRY ORDERABLES Performing Organization Address [facility] Co de Phone Number [facility] [place] [address] * Homocysteine Total, Plasma (06/03/2016 11:45 AM EDT) Homocystine 9 <=15 mcmol/L [facility] Blood specimen (specimen) 06/03/2016 11:45 AM EDT 06/03/2016 12:11 PM EDT Narrative Resulting Agency Comment Spec In Lab Mario Alberto Escobedo MD CHEMISTRY ORDERABLES [facility] [place] [address] * Folate, serum (06/03/2016 11:45 AM EDT) Folate >20.0 4.8 - 24.2 ng/mL [facility] Blood specimen (specimen) 06/03/2016 11:45 AM EDT 06/03/2016 12:04 PM EDT Narrative Resulting Agency Comment Spec In Lab Mario Alberto Escobedo MD CHEMISTRY ORDERABLES Performing Organization Address City/[facility]/ZIP Co de Phone Number [facility] [place] [address] * (ABNORMAL) Sedimentation rate (06/03/2016 11:45 AM EDT) Sedimentation Rate Automated 41(H) 0 - 20 mm/hr [facility] Blood specimen (specimen) 06/03/2016 11:45 AM EDT 06/03/2016 12:04 PM EDT Narrative Resulting Agency Comment Spec In Lab Mario Alberto Escobedo MD HEMATOLOGY ORDERABLE S [facility] [place] [address] * Lactate Dehydrogenase (06/03/2016 11:45 AM EDT) Lactate Dehydrogenase 164 110 - 220 unit/L [facility] Blood specimen (specimen) 06/03/2016 11:45 AM EDT 06/03/2016 12:11 PM EDT Narrative Resulting Agency Comment Spec In Lab Mario Alberto Escobedo MD CHEMISTRY ORDERABLES [facility] [address] * Comprehensive metabolic panel (non-fasting) (06/03/2016 11:45 [...] the following links into your internet browser. [email or web address] Blood specimen (specimen) 06/03/2016 11:45 AM EDT 06/03/2016 12:11 PM EDT Narrative Resulting Agency Comment Spec In Lab Mario Alberto Escobedo MD CHEMISTRY ORDERABLES [facility] [place] [address] documented in this encounter Visit Diagnoses Diagnosis [...] Hernandez) documented in this encounter Care Teams Lathe Puller Relationship Specialty Start Date End Date Deborah Quiroga APRN PCP - General Family Medicine 03/24/16 02/04/23 documented as of this encounter
--- OUTSIDE RECORDS SUMMARY | 2024-06-06 14:05 | XMS_ITS | Encounter Summary ---
Author Organization [facility] Address [facility] [place] [address] Care Team Providers Care Crate Repairer Name Role Phone Junaid, Deborah Shields APRN Primary Care Provider [phone] Reason for Visit * Auth/Cert Specialty Diagnoses / Procedures Referred By Crispin t Referred To Contact Diagnoses AVS Procedures CARDIAC CATHETERIZATION Referral ID Status Reason Start Date Expiration Date Visits Re quested Visits Authorized [id number] 1 1 Encounter Details Date Type Department Care Team (Late st Contact Info) Description 06/03/2016 6:32 AM EDT - 06/03/2016 1:10 PM EDT Hospital Encounter [place] [phone] Anjum Oliveros II, MD [facility] [place] [address] Mario Alberto Escobedo MD [facility] [place] [address] Aortic valve stenosis, unspecified etiology; Nonrheumatic aortic [...] by your doctor, do not take any zspf-pcs-urtvchp medicinesor herbal preparations without first discussing this with your doctor or pharmacist. There is the possibility of side effects and interactions when these are combined. Follow Up Care Who to call with questions or problems If there are any questions or problems that you think might be related to your cardiac cath or angioplasty, contact the software writer monument setter by calling [facility] at . * Patient Instructions* Felicia Corrigan - 06/03/2016 9:33 AM EDT Cardiology Instructions Call your doctor if: Chest pain, dyspnea, pain or swelling in legs occurs. If you have non-emergent questions between now and the time of your follow up appointments: -During 8am-5pm Wednesday through Wednesday call [phone] to speak with a nurse in the cardiology clinic -All other times call [phone] and ask to speak to the tailor apprentice monument setter. MEDICATIONS - restart your spironolactone, discontinue prior [...] Appointments: Primary care provider: Cardiology: Deborah Hahn, ANIMAL MAINTENANCE SUPERVISOR [phone] Follow up as planned or as needed. Dr. Esparza [phone] Other follow-up appointment: Hematology - Dr. Mario [...] EST Office Visit [place] [phone] Markel Borjas MD [facility] DR HEMATOLOGY [place] [address] 11/02/2024 12:00 PM EDT [place] [phone] 11/02/2024 1:00 PM EDT [place] [phone] Magdalena Peralta MD [facility] [place] [address] 03/01/2025 4:15 PM EDT Office Visit Dermatology at [address] [place] [phone] Marek Bonilla MD [address], [place] [address] documented as of this encounter Procedures Procedure [...] Tube HOLD (06/03/2016 11:45 AM EDT) Pathologist [facility] Hold Sample in lab. [facility] Blood specimen (specimen) Venous Draw / Unknown 06/03/2016 11:45 AM EDT 06/03/2016 12:12 PM EDT Mario Alberto Escobedo MD CHEMISTRY ORDERABLES [facility] [place] [address] * Methylmalonic acid, serum (06/03/2016 11:45 AM EDT) Pathologist [facility] Methylmalonic Acid (NOVEMBER) 0.21 <=0.40 nmol/mL [facility] Comment: Test Performed by: [facility] [place] [id number] Design Supervisor: Raymond Chaudhry II, M.D., Ph.D. Blood specimen (specimen) 06/03/2016 11:45 AM EDT 06/03/2016 1:57 PM EDT Narrative Resulting Agency Comment Spec In Lab Mario Alberto Escobedo MD LAB SEND OUT ORDERAB LES Performing Organization Address [facility]/ZIP Co de Phone Number [facility] [place] [address] * Granulocyte Antibody (06/03/2016 11:45 AM EDT) Pathologist [facility] Granulocyte Ab (NOVEMBER) Negative Not Applicable [facility] Comment: ADDITIONAL INFORMATION Method: Immunofluorescent Assay Performing Laboratory CLIA# [id number] This test was developed and its performance characteristics determined by [facility] in a manner consistent with CLIA requirements. This test has not been cleared or approved by the U.S. Food and Drug Administration. Test Performed by: [facility] [place] [address] Design Supervisor: Raymond Chaudhry II, M.D., Ph.D. Blood specimen (specimen) 06/03/2016 11:45 AM EDT 06/03/2016 1:57 PM EDT Narrative Resulting Agency Comment Spec In Lab Mario Alberto Escobedo MD LAB SEND OUT ORDERAB LES Performing Organization Address City/[facility] Co de Phone Number [facility] [place] [address] * TSH (06/03/2016 11:45 AM EDT) Thyroid Stimulating Hormone 2.18 0.27 - 4.20 mcIU/mL [facility] Blood specimen (specimen) 06/03/2016 11:45 AM EDT 06/03/2016 12:11 PM EDT Narrative Resulting Agency Comment Spec In Lab Mario Alberto Escobedo MD CHEMISTRY ORDERABLES Performing Organization Address [facility]/ZIP Co de Phone Number [facility] [place] [address] * Homocysteine Total, Plasma (06/03/2016 11:45 AM EDT) Homocystine 9 <=15 mcmol/L [facility] Blood specimen (specimen) 06/03/2016 11:45 AM EDT 06/03/2016 12:11 PM EDT Narrative Resulting Agency Comment Spec In Lab Mario Alberto Escobedo MD CHEMISTRY ORDERABLES Performing Organization Address [facility] Co de Phone Number [facility] [place] [address] * Folate, serum (06/03/2016 11:45 AM EDT) Folate >20.0 4.8 - 24.2 ng/mL [facility] Blood specimen (specimen) 06/03/2016 11:45 AM EDT 06/03/2016 12:04 PM EDT Narrative Resulting Agency Comment Spec In Lab Mario Alberto Escobedo MD CHEMISTRY ORDERABLES Performing Organization Address [facility] Co de Phone Number [facility] [place] [address] * (ABNORMAL) Sedimentation rate (06/03/2016 11:45 AM EDT) Sedimentation Rate Automated 41(H) 0 - 20 mm/hr [facility] Blood specimen (specimen) 06/03/2016 11:45 AM EDT 06/03/2016 12:04 PM EDT Narrative Resulting Agency Comment Spec In Lab Mario Alberto Escobedo MD HEMATOLOGY ORDERABLE S [facility] [place] [address] * Lactate Dehydrogenase (06/03/2016 11:45 AM EDT) Lactate Dehydrogenase 164 110 - 220 unit/L [facility] Blood specimen (specimen) 06/03/2016 11:45 AM EDT 06/03/2016 12:11 PM EDT Narrative Resulting Agency Comment Spec In Lab Mario Alberto Escobedo MD CHEMISTRY ORDERABLES [facility] [place] [address] * Comprehensive metabolic panel (non-fasting) (06/03/2016 11:45 [...] supplied above were not validated at [facility]. Results from pediatric patients [...] the following links into your internet browser. [email or web address] Blood specimen (specimen) 06/03/2016 11:45 AM EDT 06/03/2016 12:11 PM EDT Narrative Resulting Agency Comment Spec In Lab Mario Alberto Escobedo MD CHEMISTRY ORDERABLES [facility] [place] [address] documented in this encounter Visit Diagnoses Diagnosis [...] Hernandez) documented in this encounter Care Teams Crate Repairer Relationship Specialty Start Date End Date Deborah Quiroga, ANIMAL MAINTENANCE SUPERVISOR PCP - General Family Medicine 03/24/16 02/04/23 documented as of this encounter
--- OUTSIDE RECORDS SUMMARY | 2024-06-06 14:05 | XMS_ITS | Encounter Summary ---
Author Organization [facility] Address [facility] [place] [address] Care Team Providers Care Switch Maker Name Role Phone Eitan Danni ANURAG Primary Care Provider Encounter Details Date Type Department Care Team (Latest Contact Info) Description 01/23/2014 7:45 AM EDT - 01/23/2014 5:50 PM EDT Hospital Encounter [place] [address] Alan Jacobson MD [facility] [place] [address] Cardiomyopathy; SOB (shortness of breath) Discharge Disposition: [...] by your doctor, do not take any lenb-sju-xnhoyqd medicines or herbal preparations without first discussing this with your doctor or pharmacist. There is the possibility of side effect and interactions when these are combined. Follow up Care Who to Call with Questions or Problems If there are any questions or problems that you think might be related to your cardiac cath or angioplasty, contact the shear operator professor of public administration by calling [facility] at . documented in this encounter [...] EST Office Visit [place]ematology [place] [phone] Markel Borjas MD [facility] DR HEMATOLOGY [place] [address] 11/02/2024 12:00 PM EDT Appointment [place] [phone] 11/02/2024 1:00 PM EDT Office Visit Rheumatology at [place] [phone] Magdalena Peralta MD [facility] [place] [address] 03/01/2025 4:15 PM EDT Office Visit Dermatology at [place] [address] [place] [address] Marek Bonilla MD [address] [facility] [place] [address] documented as of this encounter Procedures Procedure Name Priority Date/Time Associated Diagnosis Comments ECHOCARDIOGRAM TRANSTHORACIC Routine 01/23/2014 3:17 PM EDT SOB (shortness of breath) documented in this encounter Results * Echocardiogram Transthoracic(Leb) (01/23/2014 3:17 PM EDT) Pathologist [facility] EF 50 HEARTProterro SYSTEM Anatomical Region Laterality Modality Other 01/23/2014 Narrative 01/23/2014 4:35 PM EDT Procedure: ? Transthoracic Echocardiogram Patient: ? ANDREW ONESIMO M ?(Age): 1955(58) Med Rec#: ?[id number] ? Sex: ?F ? Site Loc: ?[facility] [place] [place] ? Ht / Wt: ??158(cm)/93(kg) Pt. Loc: ? Adult Floor ?BSA: ?2.02 Study Date: ?01/23/2014 ? Pt. Type: Inpatient Tape: ? Referring: Lee Kincaid ([id number]) Referring: ANNALISA Salesperson Handbags: Miguel Beverly Diagnosis:CPT Code(s): ??Echo Full (46304), ??Spectral Doppler (50269), Color Doppler (52103), Indication(s): ??Aortic stenosis Rhythm: Sinus HR ?BP [...] ? Mid-Inferior ?Hypokinetic ? Mid-Inferoseptal ?Hypokinetic ? Harcourt-Septal ? Hypokinetic ? Harcourt-Anterior ? Hypokinetic ? Harcourt-Lateral ?Hypokinetic ? Harcourt-Inferior ? Hypokinetic ? Harcourt-Tip ?Hypokinetic ? Chambers ?Value ?Units (Range) ? [...] 16:34:37 Images reviewed and interpretation verified [facility] Cardiac Ultrasound Laboratory Procedure Note Lee Kincaid MD - 01/23/2014 Procedure: Transthoracic Echocardiogram Patient: ANDREW Mejias (Age): 1955(58) Med Rec#: [id number] Sex: F Site Loc: [facility] [place] [place] Ht / Wt: 158(cm)/93(kg) Pt. Loc: Adult Floor BSA: 2.02 Study Date: 01/23/2014 Pt. Type: Inpatient Tape: Referring: Lee Kincaid ([id number]) Referring: ANNALISA Salesperson Handbags: Miguel Beverly Diagnosis:CPT Code(s): Echo Full (39728), Spectral Doppler (26976), Color Doppler (75417), Indication(s): Aortic stenosis Rhythm: Sinus HR BP [...] Hypokinetic Mid-Posterolateral Hypokinetic Mid-Inferior Hypokinetic Mid-Inferoseptal Hypokinetic Harcourt-Septal Hypokinetic Harcourt-Anterior Hypokinetic Harcourt-Lateral Hypokinetic Harcourt-Inferior Hypokinetic Harcourt-Tip Hypokinetic Chambers Value Units (Range) IVSd 2D [...] 16:34:37 Images reviewed and interpretation verified [facility] Cardiac Ultrasound Laboratory Lee Kincaid MD [...] RN) documented in this encounter Care Teams Switch Maker Relationship Specialty Start Date End Date Danni Laird APRN [address] [place] [address] PCP - General 01/23/14 11/11/14 documented as of this encounter
--- OUTSIDE RECORDS SUMMARY | 2024-06-06 14:05 | XMS_ITS | Encounter Summary ---
Author Organization [facility] [place] [address] Care Team Providers Care Silk Printer Name Role Phone Deborah Quiroga APRN Primary Care Provider [phone] Encounter Details Date Type Department Care Team (Latest Contact Info) Description 07/10/2016 2:54 PM EST - 07/10/2016 11:59 PM EST Hospital [place] [phone] Discharge Disposition: Home Social History Tobacco Use [...] EST Office Visit [place] [address] Markel Borjas MD [facility] [address] [place] [address] 11/02/2024 12:00 PM EDT Appointment [place] [phone] 11/02/2024 1:00 PM EDT Office [place] [phone] Magdalena Peralta MD [facility] [place] [address] 03/01/2025 4:15 PM EDT Office Visit Dermatology at [address] [place] [phone] Marek Bonilla MD [address], [place] [address] documented as of this encounter Procedures Procedure Name Priority Date/Time Associated Diagnosis Comments BONE MARROW FINAL REPORT Routine 07/10/2016 3:43 PM EST documented in this encounter Results * Bone Marrow Final Report (07/10/2016 3:43 PM EST) Final Diagnosis [id number] ?Location: OPW The signing pathologist has (i) examined the relevant preparation(s) for the specimen(s) and (ii) rendered or confirmed the diagnosis(es). . ? Bone Marrow Final DIAGNOSIS BONE MARROW (PERIPHERAL SMEAR, ASPIRATE SMEAR, TOUCH PREP, CLOT SECTION, CORE BIOPSY); [OSR# [id number], COLLECTED 06/23/2016, 19 SLIDES]: ?? 1. 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 Polytypic plasma cell staining, high background Lambda ?Polytypic plasma cell staining, high background Block: ? B2 (Core biopsy 2) Fixative: ?? Formalin ANTIBODY: ?? RESULT/COMMENT CD3 ? Scattered small lymphocytes and lymphoid aggregates highlighted CD20 ?Few scattered small lymphocytes stain ( ?? <CD3 in aggregates) CD138 ? Scattered plasma cells represent 3-4% of the cellularity [place] ? Polytypic plasma cell staining, high background Lambda ?Polytypic plasma cell staining, high background Note: The immunoperoxidase stains reported above were developed and their performance characteristics determined by [facility]. ??They have not been cleared [...] CONSULTATION CASE A - 19 slides labeled [id number], collection date 06/23/2016. [id number] Report to: [facility] Surgical Pathology Department [facility], [facility], 2nd Floor [address] [place], [place] ??[address] 07/13/2016 11:38 AM EST [facility] Consult Case 07/10/2016 3:43 PM EST 07/10/2016 3:43 PM EST Nitesh Pina Jr., MD PATHOLOGY/CYTOLOGY O RDERABLES [facility] [place] [address] documented in this encounter Visit Diagnoses Not on filedocumented in this encounter Care Teams Silk Printer Relationship Specialty Start Date End Date Deborah Quiroga APRN PCP - General Family Medicine 03/24/16 02/04/23 documented as of this encounter
--- OUTSIDE RECORDS SUMMARY | 2024-06-06 14:05 | XMS_ITS | Encounter Summary ---
Author Organization [facility] Address [facility] [place] [address] Care Team Providers Care Offline Editor Name Role Phone Junaid, Deborah Shields APRN Primary Care Provider [phone] Encounter Details Date Type Department Care Team (Late st Contact Info) Description 07/13/2016 External [place] [address] Provider, Scanning Social History Tobacco [...] Visit Hematology and Oncology at [place] [phone] Markel Borjas MD [facility] [address] [place] [address] 11/02/2024 12:00 PM EDT Appointment [place] [address] 11/02/2024 1:00 PM EDT Office Visit Rheumatology at [place] [phone] Magdalena Peralta MD [facility] [place] [address] 03/01/2025 4:15 PM EDT Office Visit Dermatology at [place] [address] [place] [phone] Marek Bonilla MD [address] [place] [address] documented as of this encounter Procedures Procedure [...]
--- OUTSIDE RECORDS SUMMARY | 2024-06-06 14:05 | XMS_ITS | Encounter Summary ---
Author Organization [facility] Address [facility] [place] [address] Care Team Providers Care Supervisor Corduroy Cutting Name Role Phone Junaid Deborah Shields APRN Primary Care Provider [phone] Encounter Details Date Type Department Care Team (Latest Contact Info) Description 05/19/2016 11:00 AM EDT Clinical [place] [phone] Nonrheumatic aortic valve stenosis Social History Tobacco [...] EST Office Visit Hematology [place] [address] Markel Borjas MD [facility] [address] HEMATOLOGY [place] [address] 11/02/2024 12:00 PM EDT Appointment [place] [phone] 11/02/2024 1:00 PM EDT Office [place] [phone] Magdalena Peralta MD [facility] [place] [address] 03/01/2025 4:15 PM EDT Office Visit Dermatology at [address] [place] [address] Marek Bonilla MD [address] [facility] [place] [address] documented as of this encounter Procedures Procedure [...] (Bezet) 448 ms MUSE SYSTEM Calculated P [place] 37 degrees MUSE SYSTEM Calculated R [place] 31 degrees MUSE SYSTEM Calculated T [place] 25 degrees MUSE SYSTEM INTERPRETATION Normal sinus rhythm Normal ECG No previous ECGs available Confirmed by MD Becca, Deangelo ([id number]) on 05/19/2016 5:23:33 PM MUSE SYSTEM 05/19/2016 11:4 3 AM EDT 05/19/2016 5:23 PM EDT Alirio Esparza MD ECG ORDERABLES MUSE SYSTEM documented in this encounter Visit Diagnoses Diagnosis Nonrheumatic aortic valve stenosis Aortic valve disorders documented in this encounter Care Teams Supervisor Corduroy Cutting Relationship Specialty Start Date End Date Deborah Quiroga, REIMBURSEMENT COUNSELOR PCP - General Family Medicine 03/24/16 02/04/23 documented as of this encounter
--- OUTSIDE RECORDS SUMMARY | 2024-06-08 14:09 | XMS_ITS | Encounter Summary ---
Author Organization Count Includes [facility] Address [facility] [place] [address] Care Team Providers Care Warehouse Order Filler Name Role Phone Magdalena Acosta MD Primary Care Provider [phone] Reason for Visit * Reason Comments Follow-up * Consultation (Routine) - Closed Specialty Diagnoses / Procedures Referred By Contac t Referred To Contact Hematology and Oncology Diagnoses Anemia, unspecified type Consuelo Guerrero, DO [address] [place] [address] [place] [address] [facility] Hem Onc [address] [place] [address] Referral ID Status Reason Start Date Expiration Date V isits Requested Visits Authorized [id number] Closed Consult, Test & Treat 04/11/2024 04/11/2025 1 1 Encounter Details Date Type Department Care Team (Late st Contact Info) Description 05/12/2024 10:00 AM EDT Office Visit [place]ematology [place] [address] Markel Borjas MD [facility] [address] [place] [address] Chronic idiopathic neutropenia Social History Tobacco Use Types Packs/Day Years Used Date Smoking Tobacco: Never Smokeless Tobacco: Never Alcohol Use Standard Drinks/Week Comments No 0 (1 standard drink = 0.6 oz pur e alcohol) none [facility] Inpatient Questions Answer Date Recorded Does Anyone [...] 10:00 AM EDT Hematology Outpatient Clinic [facility] Hematology [...] TOUCH PREP, CLOT SECTION, CORE BIOPSY); [OSR# [id number], COLLECTED 06/23/2016, 19 SLIDES]: 1. 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 pantoprazole EC (Protonix) 40 [...] intact. Extremities: No edema. Labs: Hgb= 11.7 Qetk=673 ANC= 2.5 Assessment: 60 year-old woman found [...] EST Office Visit [place]ematology [place] [address] Markel Borjas MD [facility] [address] [place] [address] 11/02/2024 12:00 PM EDT Appointment [place] [address] 11/02/2024 1:00 PM EDT Office [place] [address] Magdalena Peralta MD [facility] [place] [address] 03/01/2025 4:15 PM EDT Office Visit Dermatology at [place] [address] [place] [phone] Marek Bonilla MD [address] [place] [address] documented as of this encounter Results * Reticulocyte Count (05/12/2024 8:56 AM EDT) [facility] Reticulocyte % 1.20 0.70 - 2.50 % [...] EDT 05/12/2024 8:56 AM EDT Tova Russell TREASURY ASSISTANT HEMATOLOGY ORDERABL ES [facility] [place] [address] * (ABNORMAL) Comprehensive metabolic panel Non-fasting (05/12/2024 8:56 AM EDT) [facility] Glucose 86 65 - 199 [...] 30 unit/L 05/12/2024 11:36 AM [facility] Alkaline Phosphatase 98 35 - 105 unit/L 05/12/2024 11:36 AM [facility] Bilirubin, Total 0.2 <=1.3 mg/dL 05/12/2024 11:36 AM [facility] Est Glomerular Filtration Rate - [...] EDT 05/12/2024 8:56 AM EDT Tova Russell TREASURY ASSISTANT CHEMISTRY ORDERABLE S Performing Organization Address City/State/[facility] Co de Phone Number [facility] [place] [address] * (ABNORMAL) CBC (with Diff) (05/12/2024 8:56 [...] 05/12/2024 9:32 AM [facility] Neutrophil % 69.7 % 05/12/2024 9:32 AM [facility] Neutrophil Absolute (ANC) - Automated 2.42 1.70 - 6.10 x10(3)/mc L 05/12/2024 9:32 AM [facility] Lymph % 16.7 % 05/12/2024 9:32 AM [facility] Lymph Absolute 0.58(L) 0.90 - 3.20 x10(3)/mc L 05/12/2024 9:32 AM [facility] Monocyte % 12.1 % 05/12/2024 9:32 AM [facility] Monocyte Absolute 0.42 0.30 - 0.90 x10(3)/mc L 05/12/2024 9:32 AM [facility] Eos % 0.6 % 05/12/2024 [...] EDT 05/12/2024 8:56 AM EDT Tova Russell TREASURY ASSISTANT HEMATOLOGY ORDERABL ES [facility] [place] [address] documented in this encounter Visit Diagnoses Diagnosis Chronic idiopathic neutropenia Other neutropenia documented in this encounter Care Teams Warehouse Order Filler Relationship Specialty Start Date End Date Magdalena Acosta MD [address] [place] [address] PCP - General Family Medicine 02/05/23 documented as of this encounter
--- OUTSIDE RECORDS SUMMARY | 2024-06-08 14:09 | XMS_ITS | Encounter Summary ---
Author Organization [facility] Address [address] [place] [address] Care Team Providers Care Adult Services Librarian Name Role Phone Scott, Ashley WILLIAM Primary Care Provider [phone] Encounter Details Date Type Department Care Team (Late st Contact Info) Description 12/23/2016 Results Only [facility]- [facility] [phone] Deborah Quiroga, ENVIRONMENTAL SOLUTIONS ENGINEER [address] [place] [address] [phone] Social History Tobacco Use Types Packs/Day Years [...] ? 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 Accession #: ? [id number] ? : ? 1955 (Age: 61) ??F ?Collect Date: ? 12/23/2016 ? Location: ? [facility] ? Receive Date: ? 12/25/2016 ? Provider: DEBORAH QUIROGA TABLEAU ANALYST Copy to: ? Final Report SPECIMEN ADEQUACY ? Satisfactory for Evaluation - transformation zone component present GENERAL CATEGORIZATION ? Negative for Intraepithelial Lesion or Malignancy ?? Last Menstrual Period: years Specimen/Source: ??Pap Test, Cervix, ThinPrep Imaging System with manual evaluation Document reviewed and electronically signed by: ? Monica Cason [facility](ASCP) ? Report ??Date: 01/06/2017 09:11 HPV with Pap Test ? Date Ordered: ? 01/06/2017 ? Status: ?? Signed Out ?Date Complete: ? 01/07/2017 ? By: ??System Interface ? Date Reported: ? 01/07/2017 ? Interpretation RESULT: Negative for HPV. No E6 or E7 mRNA is detected from HPV types 16,18,31,33,35, 39,45,51,52,56,58, 59,66, and 68 by exercise manager mediated amplification. Comments Document reviewed and electronically signed by: ? System Interface ? Report date: 01/07/2017 By the signature above, the attending physician certifies that he/she has personally conducted a gross and/or microscopic examination of the described specimens and rendered or confirmed the above diagnosis. End of Report [facility] 12/23/2016 12/25/2016 Deborah Quiroga ENVIRONMENTAL SOLUTIONS ENGINEER PATHOLOGY ORDERABLES [facility] [address] [place] [address] documented in this encounter Visit Diagnoses Not on filedocumented in this encounter Care Teams Adult Services Librarian Relationship Specialty Start Date End Date Ashley Chavez ARNP [address] [place] [address] PCP - General 07/11/10 documented as of this encounter
--- OUTSIDE RECORDS SUMMARY | 2024-06-08 14:09 | XMS_ITS | Encounter Summary ---
[place] [address] Care Team Providers Care Higher Level Teaching Assistant Name Role Phone Magdalena Acosta MD Primary Care Provider [phone] Encounter Details Date Type Department Care Team (Late st Contact Info) Description 05/18/2024 Interpretation Only [address] [address] Magdalena Acosta MD [address] [place], [place] [id number] Social History Tobacco Use Types Packs/Day Years [...] EST Office Visit Hematology [place] [address] Markel Borjas MD [facility] [address] [place] [address] 11/02/2024 12:00 PM EDT Appoint[place] [phone] 11/02/2024 1:00 PM EDT Office [place] [address] Magdalena Peralta MD [facility] [place] [address] 03/01/2025 4:15 PM EDT Office Visit Dermatology at [place] [address] [place] [phone] Marek Bonilla MD [address], [place] [address] documented as of this encounter Procedures Procedure Name Priority Date/Time Associated Diagnosis Comments DXA CENTRAL SPINE, HIP, AND/OR WHOLE BODY (GENERIC) Routine 05/18/2024 11:21 AM EDT documented in this encounter Results * DXA Central Spine, Hip, and/or Whole Body (Generic) (05/18/2024 11:21 AM EDT) PT CLASS O RAD ADMITDTTM [id number] [facility] PT [facility] INFO [id number]^Dave ^Magdalena RAD EXAM DESC XDXAC^BD Bone Density DEXA Axial Skeleton^RIS [facility] WORKSTATION ID RADDRIMAGE [facility] Anatomical Region Laterality Modality C-spine, [...] who have questions please contact the health childbirth and infant care teacher that requested your imaging first. ? Electronically signed by: Rocael Villatoro MD, [facility] ([phone]), at 05/18/2024 11:25 AM Narrative 05/18/2024 11:25 [...] patients who have questions please contactthe health childbirth and infant care teacher that requested your imaging first. Electronically signed by: Rocael Villatoro MD, [facility]([phone]), at 05/18/2024 11:25 AM Magdalena Acosta MD IMG DEXA ORDERABLES documented in this encounter Visit Diagnoses Not on filedocumented in this encounter Care Teams Higher Level Teaching Assistant Relationship Specialty Start Date End Date Magdalena Acosta MD [address] [place] [address] PCP - General Family Medicine 02/05/23 documented as of this encounter
--- OUTSIDE RECORDS SUMMARY | 2024-06-08 14:09 | XMS_ITS | Encounter Summary ---
Author Organization [facility] Address [address] [place] [address] Care Team Providers Care Impregnator Carbon Products Name Role Phone Unavailable Primary Care Provider Unavailabl e Encounter Details Date Type Department Care Team (Late st Contact Info) Description 07/08/2010 Results Only [facility] - [facility] [address] [place] [address] Ashley Chavez, WILLIAM [address] [place] [address] Social History Tobacco Use Types Packs/Day Years [...] ? PURNIMA THACKER ? Accession #: ? [id number] ? : ? 1955 (Age: 54) ??F [...] Ashley THOMAS PATHOLOGY ORDERABLES PAUL ARELLANO [address] [place] [address] documented in this encounter Visit Diagnoses Not on filedocumented in this encounter
--- OUTSIDE RECORDS SUMMARY | 2024-06-08 14:09 | XMS_ITS | Clinical Summary ---
Author Organization [facility] Address [address] [place] [address] Care Team Providers Care Animal Laboratory Helper Name Role Phone Ashley Chavez Primary Care Provider [phone] Encounters Date Type Department Care Team Description 03/22/2024 Lab Requisition [facility] Pathology & Laboratory [address] [address] Consuelo Guerrero, DO Diaphragmatic hernia without obstruction or gangrene; Anemia, unspecified 03/21/2024 Lab Requisition [facility] Pathology & Laboratory [address] [address] Consuelo Guerrero, DO Encounter for other general examination 03/21/2024 Lab Requisition [facility] Pathology & Laboratory [address] [address] Outr Resulting Lab, Provider from Last 3 [...] LORY Negative 03/21/2024 22:31 EDT [facility] BLOOD BANK Blood VENOUS BLOOD / Unknown 03/21/2024 13:00 EDT 03/21/2024 21:51 EDT Consuelo Guerrero DO BLOOD BANK TESTS Performing Organization Address [facility] Co de Phone Number [facility] BLOOD BANK [address] [place] [address] * HAPTOGLOBIN (03/21/2024 13:00 EDT) Haptoglobin 183 32 - 197 mg/dL 03/22/2024 10:25 EDT [facility] Blood VENOUS BLOOD / Unknown 03/21/2024 13:00 EDT 03/21/2024 21:50 EDT Provider Outr Resulting Lab CHEMISTRY & BLOOD GAS ORDERABLES Performing Organization Address [facility]/ZIP Co de Phone Number [facility] [address] [place], [place] [address] * SURGICAL PATHOLOGY (03/21/2024 11:35 EDT) Note to Patient The following pathology results have been interpreted by your pathologist and may be available to you before your health provider has had the opportunity to review them. Please allow time for your provider to receive these results and explore management options, if applicable. 03/24/2024 10:36 EDT [facility] Final [...] - Deeper sections x3 examined. 03/24/2024 10:36 [facility] Attestation There was significant resident/fellow involvement in the diagnostic evaluation of this case. By the signature below, the attending physician certifies that they have personally conducted a gross and/or microscopic examination of the described specimens and rendered or confirmed the above diagnosis. 03/24/2024 10:36 [facility] at [address] Clinical History Anemia, hiatal hernia, 38 cm aguayo diverticulosis 03/24/2024 10:36 [facility] Gross Description A. Received [...] 03/22/2024 9:36 03/24/2024 10:36 EDT [facility] Resident/Estuardo w: Luis Felipe Bragg DO 03/24/2024 10:36 EDT [facility] Performing Lab [facility] 10:36 EDT [facility] Scanned Images 03/24/2024 10:36 EDT [facility] SERVICES Tissue [...] ORDERABLES [facility] [address] [place] [address] from Last 3 Months Care Teams Animal Laboratory Helper Relationship Specialty Start Date End Date Ashley Chavez ARNP [address] [place] [address] PCP - General 07/11/10
--- OUTSIDE RECORDS SUMMARY | 2024-06-08 14:09 | XMS_ITS | Encounter Summary ---
Author Organization [facility] Address [address] [place] [address] Care Team Providers Care It Instructor Name Role Phone ScottNicolei WILLIAM Primary Care Provider [phone] Encounter Details Date Type Department Care Team (Late st Contact Info) Description 03/21/2024 Lab Requisition [facility] Pathology & Laboratory Medicine - [address] [address] Consuelo Guerrero, DO [address] [place], [place] [address] Encounter for other general examination Social History [...] LORY Negative 03/21/2024 22:31 EDT [facility] BLOOD BANK Blood VENOUS BLOOD / Unknown 03/21/2024 13:00 EDT 03/21/2024 21:51 EDT Consuelo Guerrero DO BLOOD BANK TESTS [facility] BLOOD BANK [address] [place] [address] documented in this encounter Visit Diagnoses Diagnosis Encounter for other general examination documented in this encounter Care Teams It Instructor Relationship Specialty Start Date End Date Ashley Chavez ARNP [address] [place] [address] PCP - General 07/11/10 documented as of this encounter
--- OUTSIDE RECORDS SUMMARY | 2024-06-08 14:09 | XMS_ITS | Encounter Summary ---
Author Organization [facility] Address [facility] [place] [address] Care Team Providers Care Broach Operator Name Role Phone Magdalena Acosta MD Primary Care Provider [phone] Reason for Visit * Reason Onset Date Comments Medication Refill 05/24/2024 Encounter Details Date Type Department Care Team (Late st Contact Info) Description 05/24/2024 [place] [address] Magdalena Peralta MD [facility] [place] [address] Social History Tobacco Use Types Packs/Day Years Used Date Smoking Tobacco: Never Smokeless Tobacco: Never Alcohol Use Standard Drinks/Week Comments No 0 (1 standard drink = 0.6 oz pur e alcohol) none [facility] Inpatient Questions Answer Date Recorded Does Anyone [...] 200 mg tablet [facility] - [place], [place] - [address] [facility] [address] [facility] [address] documented in this encounter Plan of Treatment Upcoming Encounters Date Type Department Care Team (Late st Contact Info) Description 06/23/2024 2:00 PM EST Office Visit [place]ematology [place] [address] Markel Borjas MD [facility] DR HEMATOLOGY [place] [address] 11/02/2024 12:00 PM EDT [place]oint[place] [address] 11/02/2024 1:00 PM EDT Office [place] [address] Magdalena Peralta MD [facility] [place] [address] 03/01/2025 4:15 PM EDT Office Visit Dermatology at [address] [place] [phone] Marek Bonilla MD [address] [facility], [place] [address] documented as of this encounter Visit Diagnoses Not on filedocumented in this encounter Care Teams Broach Operator Relationship Specialty Start Date End Date Magdalena Acosta MD [address] [place] [address] PCP - General Family Medicine 02/05/23 documented as of this encounter
--- OUTSIDE RECORDS SUMMARY | 2024-06-08 14:09 | XMS_ITS | Encounter Summary ---
Author Organization [facility] Address [address] [place] [address] Care Team Providers Care Skills Auditor Name Role Phone Ashley Chavez Primary Care Provider [phone] Encounter Details Date Type Department Care Team (Late st Contact Info) Description 01/07/2023 Lab Requisition [facility] Pathology & Laboratory Medicine - [address] [address] Outr Resulting Lab, Provider Social History Tobacco [...] & BLOOD GAS ORDERABLES Performing Organization Address City/State/[facility] Co de Phone Number [facility] [address] [place] [address] * PROTEIN, TOTAL (01/06/2023 14:40 EDT) Blood VENOUS BLOOD / Unknown 01/06/2023 14:40 EDT 01/07/2023 17:37 EDT Provider Outr Resulting Lab CHEMISTRY & BLOOD GAS ORDERABLES Performing Organization Address [facility] Co de Phone Number [facility] [address] [place] [address] * (ABNORMAL) EXTRACTABLE NUCLEAR ANTIGEN PANEL (01/06/2023 14:40 EDT) SSA Antibody 1.3 <20.0 Units 01/08/2023 15:42 EDT [facility] Comment: ? Negative: [...] <20.0 Units 01/08/2023 15:42 EDT [facility] Comment: ? Negative: [...] <20.0 Units 01/08/2023 15:42 EDT [facility] Comment: ? Negative: <20.0 Units ? Weak Positive: 20.0 - 39.9 Units ? Moderate Positive: 40.0 - 80.0 Units ? Strong Positive: >80.0 Units Results were obtained with the UReservVA QUANTA Lite Sm DOMO. ??Sm values obtained with different manufacturers' assay methods may not be used interchangeably. ??The magnitude of the reported IgG levels cannot be correlated to an endpoint titer. [address] Antibody 149.1(H) <20.0 Units 01/08/2023 15:42 EDT [facility] Comment: ? Negative: <20.0 Units ? Weak Positive: 20.0 - 39.9 Units ? Moderate Positive: 40.0 - 80.0 Units ? Strong Positive: >80.0 Units Results were obtained with the Appydrinkva Quanta Lite [address] DOMO. [address] values obtained with different community health nurse staff's assay methods may not be used interchangeaby. ??The magnitude of the reported IgG levels cannot be be correlated to an endpoint titer. A positive result in the Quanta Lite [address]MP [address] DOMO indicates the presence of antibodies reactive with the [address]/Sm complex but cannot distinguish between anti-Sm and anti-DUMP TRUCK [address] activity. Blood VENOUS BLOOD / Unknown 01/06/2023 14:40 EDT 01/07/2023 17:37 EDT Provider Outr Resulting Lab IMMUNOLOGY A ND SEROLOGY ORDERABLES [facility] [address] [place] [address] * (ABNORMAL) ANTI NUCLEAR AB (FRANCISCO), IFA (01/06/2023 14:40 EDT) FRANCISCO Interpretation Positive(A) Negative 01/08/2023 15:22 EDT [facility] Comment: Result is [...] 1:5120 Speckled 01/08/2023 15:22 EDT [facility] Blood VENOUS BLOOD / Unknown 01/06/2023 14:40 EDT 01/07/2023 17:37 EDT Narrative [facility] - 01/08/2023 15:22 EDT Results were obtained with the INOVA NOVA Lite HEp-2 FRANCISCO Kit by indirect immunofluorescence. Provider Outr Resulting Lab IMMUNOLOGY A ND SEROLOGY ORDERABLES Performing Organization Address City/State/[facility] Co de Phone Number [facility] [address] [place] [address] documented in this encounter Visit Diagnoses Not on filedocumented in this encounter Care Teams Skills Auditor Relationship Specialty Start Date End Date Ashley Chavez ARNP [address] [place] [address] PCP - General 07/11/10 documented as of this encounter
--- OUTSIDE RECORDS SUMMARY | 2024-06-08 14:09 | XMS_ITS | Encounter Summary ---
Author Organization [facility] Address [address] [place] [address] Care Team Providers Care Dual Hose Cementer Name Role Phone Ashley Chavez Primary Care Provider [phone] Encounter Details Date Type Department Care Team (Late st Contact Info) Description 03/21/2024 Lab Requisition [facility] Pathology & Laboratory Medicine - [address] [address] Outr Resulting Lab, Provider Social History Tobacco [...] 197 mg/dL 03/22/2024 10:25 EDT [facility] Blood VENOUS BLOOD / Unknown 03/21/2024 13:00 EDT 03/21/2024 21:50 EDT Provider Outr Resulting Lab CHEMISTRY & BLOOD GAS ORDERABLES [facility] [address] [place] [address] documented in this encounter Visit Diagnoses Not on filedocumented in this encounter Care Teams Dual Hose Cementer Relationship Specialty Start Date End Date Ashley Chavez ARNP [address] [place] [address] PCP - General 07/11/10 documented as of this encounter
--- OUTSIDE RECORDS SUMMARY | 2024-06-08 14:09 | XMS_ITS | Encounter Summary ---
Author Organization [facility] Address [address] [place] [address] Care Team Providers Care Elementary Instructional Coach Name Role Phone Unavailable Primary Care Provider Unavailabl e Encounter Details Date Type Department Care Team (Late st Contact Info) Description 07/08/2010 10:55 EST - 07/08/2010 10:56 EST Hospital Encounter [facility] - Other [address] [place] [address] Ashley Chavez, WILLIAM [address] [place] [address] Discharge Disposition: Home or Self Care Social [...]
--- OUTSIDE RECORDS SUMMARY | 2024-06-08 14:09 | XMS_ITS | Encounter Summary ---
Author Organization [facility] Address [address] [place] [address] Care Team Providers Care Senior Credit Analyst Name Role Phone Ashley Chavez Primary Care Provider [phone] Encounter Details Date Type Department Care Team (Late st Contact Info) Description 04/29/2022 Lab Requisition [facility] Pathology & Laboratory Medicine - [address] [address] Outr Resulting Lab, Provider Social History Tobacco [...] Antibody 1.6 <20.0 Units 04/30/2022 12:23 EDT [facility] Comment: ? Negative: <20.0 [...] A ND SEROLOGY ORDERABLES Performing Organization Address [facility] [[email or web address]] de Phone Number [facility] [address] [place] [address] * SSA ANTIBODIES BY DOMO (04/29/2022 7:51 EDT) SSA Antibody 1.5 <20.0 Units 04/30/2022 12:22 EDT [facility] Comment: ? Negative: <20.0 [...] ND SEROLOGY ORDERABLES Performing Organization Address [facility] [[email or web address]] de Phone Number [facility] [address] [place] [address] documented in this encounter Visit Diagnoses Not on filedocumented in this encounter Care Teams Senior Credit Analyst Relationship Specialty Start Date End Date Ashley Chavez ARNP [address] [place] [address] PCP - General 07/11/10 documented as of this encounter
--- OUTSIDE RECORDS SUMMARY | 2024-06-08 14:09 | XMS_ITS | Encounter Summary ---
Author Organization [facility] Address [facility] [place] [address] Care Team Providers Care Worm Packer Name Role Phone Magdalena Acosta MD Primary Care Provider [phone] Encounter Details Date Type Department Care Team [...] EST Office Visit Hematology [place] [address] Markel Borjas MD [facility] [address] [place] [address] 11/02/2024 12:00 PM EDT Appointment [place] [address] 11/02/2024 1:00 PM EDT Office [place] [address] Magdalena Peralta MD [facility] [place] [address] 03/01/2025 4:15 PM EDT Office Visit Dermatology at [place] [address] [facility] [place] [phone] Marek Bonilla MD [address] [place] [address] documented as of this encounter Visit Diagnoses Not on filedocumented in this encounter Care Teams Worm Packer Relationship Specialty Start Date End Date Magdalena Acosta MD [address] [place] [address] PCP - General Family Medicine 02/05/23 documented as of this encounter
--- OUTSIDE RECORDS SUMMARY | 2024-06-08 14:09 | XMS_ITS | Encounter Summary ---
Author Organization [facility] Address [facility] [place] [address] Care Team Providers Care Pastry Chef Name Role Phone Magdalena Acosta MD Primary Care Provider [phone] Encounter Details Date Type Department Care Team [...] EST Office Visit Hematology [place] [address] Markel Borjas MD [facility] [address] HEMATOLOGY [place] [address] 11/02/2024 12:00 PM EDT Appointment [place] [address] 11/02/2024 1:00 PM EDT Office Visit [place] [address] Magdalena Peralta MD [facility] [place] [address] 03/01/2025 4:15 PM EDT Office Visit Dermatology at [place] [address] [facility] [place] [address] Marek Bonilla MD [address] [place] [address] documented as of this encounter Visit Diagnoses Not on filedocumented in this encounter Care Teams Pastry Chef Relationship Specialty Start Date End Date Magdalena Acosta MD [address] [place] [address] PCP - General Family Medicine 02/05/23 documented as of this encounter
--- OUTSIDE RECORDS SUMMARY | 2024-06-08 14:09 | XMS_ITS | Encounter Summary ---
Author Organization [facility] [place] [address] Care Team Providers Care Continuous Conveyor Screen Drier Name Role Phone Magdalena Acosta MD Primary Care Provider [phone] Encounter Details Date Type Department Care Team (Late st Contact Info) Description 06/05/2024 2:00 PM EST - 06/05/2024 3:00 PM EST Surgery [facility] [place] [address] Markel Borjas MD [facility] DR HEMATOLOGY [place] [address] ([facility] MSURG) BONE MARROW BIOPSY AND ASPIRATION; [...] 5pm or on a weekend: Call the [facility] scoop machine operator at and ask for the physician skin care consultant covering for your doctor. Instructions following sedation [...] drainage occurs, please contact [place] [address] [email or web address] documented in this encounter Medications at Time [...] topically 2 times daily as needed. 10/22/2022 Insight GuruTouch Verio test strips Strip USE DAILY 01/03/2022 [employer] Guru[employer] Delica Plus Lancet 33 gauge Misc USE [...] EST Office Visit Hematology [place] [address] Markel Borjas MD [facility] DR HEMATOLOGY [place] [address] 11/02/2024 12:00 PM EDT Appointment [place] [phone] 11/02/2024 1:00 PM EDT Office [place] [phone] Magdalena Peralta MD [facility] DR [place] [address] 03/01/2025 4:15 PM EDT Office Visit Dermatology at [address] [phone] Marek Bonilla MD [address] [facility] [place] [address] Pending Results Name Type Priority Associated Diagnoses Date /Time DH HemeSeq (Bone Marrow) Lab Routine 06/05/2024 2:22 PM EST Chromosome Analysis, Acquired ([facility]) Lab Routine 06/05/2024 2: 22 PM EST Myelodysplastic Syndrome (MDS) FISH Panel Lab Routine 06/05/2024 2:22 PM EST Scheduled Orders Name Type Priority Associated Diagnoses Orde r Schedule DH HemeSeq (Bone Marrow) Lab Routine One [...] 2:22 PM EST BM HOLD FLOW/MOLECULAR Routine 2:22 PM EST BONE MARROW ANALYSIS Routine 06/05/2024 2:22 PM EST IMMUNOPHENOTYPING FLOW CYTOMETRY Routine 06/05/2024 2:22 PM EST BONE MARROW Routine 06/05/2024 2:22 PM EST Diagnostic Bone Marrow Biopsies & Aspirations ([address]) 06/05/2024 2:03 PM EST Anemia, in pt with longstanding neutropenia CBC (WITH DIFF) Routine 06/05/2024 1:45 PM EST ([facility] MS[facility]) BONE MARROW BIOPSY AND ASPIRATION; DIAGNOSTIC Routine 06/05/2024 1:07 PM EST documented in this encounter Results * Immunophenotyping Flow Cytometry (06/05/2024 2:22 PM EST) Final Diagnosis - No monotypic B-cell population, no monotypic plasma cell population, no phenotypically abnormal T-cell population or increase in blasts is detected. 06/06/2024 2:08 PM EST [facility] Signing Pathologist This result has been reviewed by Georges Boucher MD on 06/06/24 at 2:08 PM. 06/06/2024 2:08 PM EST [facility] Interpretation CD19+ B-cells show a polytypic distribution of surface kappa and lambda. The T-cell CD4:CD8 ratio is 1.6:1, and no specific aguayo-T-cell marker aberrancies are detected. CD138 positive plasma cells (0.2% of cells) show polytypic distribution of cytoplasmic kappa and lambda The blast gate based on CD45 expression, orthogonal light scatter contains 0.9% of cells. A subset (64% of cells) of these is positive for CD34, HLA-DR, CD19, and negative for other tested markers, consistent with hematogones. No other significant blast populations identified. 06/06/2024 2:08 PM [facility] Lymphocyte % 4.7 % 06/06/2024 2:08 PM [facility] Monocyte % 3.0 % 06/06/2024 2:08 PM [facility] Granulocyte % 76.0 % 06/06/2024 2:08 PM [facility] CD45 DIM % 0.9 % 06/06/2024 2:08 PM [facility] CD38 Bright/CD138+ 0.2 % 06/06/2024 2:08 PM [facility] CD3+ % 70.0 % 06/06/2024 2:08 PM [facility] CD19+ % 17.0 % 06/06/2024 2:08 PM [facility] CD56+ % 12.0 % 06/06/2024 2:08 PM [facility] B-Cell:T-Cell Ratio 0.2 06/06/2024 2:08 PM [facility] [place]:Lambda Ratio 1.8 06/06/2024 2:08 PM [facility] CD4:CD8 Ratio 1.6 06/06/2024 2:08 PM [facility] Specimen Processing Cells for immunophenotypic analysis were derived from bone marrow. The following markers were assessed: CD2, CD3, CD4, CD5, CD7, CD8, CD10, CD19, CD20, CD38, CD45, CD56, CD138, kappa light chain, (c)kappa light chain, lambda light chain, (c)lambda light chain,CD13, CD14, CD34, CD45, CD117, and HLA-DR. 06/06/2024 2:08 PM [facility] Disclaimer Flow analysis is an ancillary study. A definite diagnosis requires correlation with the morphologic features of this process and if necessary, correlation with other ancillary studies like immunohistochemist ry, enzyme cytochemistry and/or cyto/molecular genetics. This test was developed and its performance characteristics determined by the Clinical Flow Cytometry Laboratory at [facility]. It has not been cleared or approved by the U.S. Food and Drug Administration. The FDA has determined that such clearance or approval is not necessary. This test is used for clinical purposes. It should not be regarded as investigational or for research. This laboratory is certified under the Clinical Laboratory Improvement Act of 1988 (CLIA) as qualified to perform high complexity clinical laboratory testing. 06/06/2024 2:08 PM EST [facility] Bone Marrow Non Blood Collection / Unknown 06/05/2024 2:22 PM EST 06/05/2024 3:07 PM EST Georges Boucher MD HEMATOLOGY ORDERABLE S Performing Organization Address City/[facility]/[place] [address] * BM HOLD CYTOGENETICS/FISH (06/05/2024 2:22 PM EST) Bone Marrow Non Blood Collection / Unknown 06/05/2024 2:22 PM EST 06/05/2024 3:07 PM EST Narrative [facility] - 06/06/2024 10:47 AM EST ~3ml Markel Borjas MD PATHOLOGY/CYTOLOGY ORDERABLES Performing Organization Address City/[facility]/ZIP Co de Phone Number [facility] [place] [address] * BM HOLD FLOW/MOLECULAR (06/05/2024 2:22 PM EST) Bone Marrow Non Blood Collection / Unknown 06/05/2024 2:22 PM EST 06/05/2024 3:07 PM EST Markel Borjas MD PATHOLOGY/CYTOLOGY ORDERABLES Performing Organization Address City/[facility]/ZIP Co de Phone Number [facility] [place] [address] * Bone Marrow (06/05/2024 2:22 PM EST) Case Report Bone Marrow Patholog y Report ?Case: [id number] ? Authorizing Provider: ??Markel Borjas, ?Collected: ? 06/05/2024 1422 ? Ordering Location: [facility] ??Received: ?06/05/2024 1508 ? [facility] ? Hospital ? Pathologist: ? Georges Boucher L, MD ? Specimens: ?? A) - Iliac Crest, Left ? B) - Iliac Crest, Left ? C) - Iliac Crest, Left ? 4 1:36 PM [facility] Final Diagnosis BONE MARROW (BLOOD FILM, ASPIRATE, TOUCH PREP, CORE & CLOT SECTIONS): 1. Normocellular bone marrow with maturing trilineage hematopoiesis. No overt dysplasia or increased blasts. 2. Ancillary studies pending. 4 1:36 PM [facility] Discussion The patient's histor y of neutropenia in 2016 with bone marrow biopsy showing no overt dysplasia or lymphoproliferative disorder and now with macrocytic anemia and thrombocytopenia is noted. The current bone marrow biopsy shows no overt dysplasia, increased blasts, or evidence of a lymphoproliferative disorder. The patient's cytopenias could be secondary to autoimmune/inflammato ry condition, medication/drug, or nutritional deficiency. Correlation of these findings with pending karyotype, MDS FISH, and HemeSeq is recommended to fully exclude a myeloid neoplasm. Final integrated report to follow. 4 1:36 PM [facility] Additional Studies Task ID IHC/Special Stains Result B1-3 Myeloperoxidase Highlights granulocytic precursors. B1-4 CD34 Highlights rare blasts (<5% of cells) B1-5 CD117 Highlights rare mast cells. B1-6 E-Cadherin Highlights normal erythroid precursors. B1-7 CD61 Highlights normal megakaryocytes. 4 1:36 PM [facility] Clinical Information Anemia, in patient with presumed hx of benign neutropenia 4 1:36 PM [facility] Gross Description A. Iliac Crest, Left. Number of Lavender (EDTA) tubes: 3 Total Volume of Lavender (EDTA) tubes: 8 ml Number of Green (NaHep) tubes: 1 Total Volume of Green (NaHep) tubes: 3 ml Spicule/Clot Section submitted? Present Tube to Biorepository? Present Processed by: Abbie Barrow Collected off the campus by: N/A B. Iliac Crest, Left. B - Labeled/Fixative: Iliac crest, left, formalin. Quantity/Size: Single, 0.7 x 0.2 cm. Tissue Description: Red firm needle core biopsies of bone. Sections/Processing: Blocks submitted for decalcification: B1. Entirely submitted in 1 cassette labeled B1. CCP C. Iliac Crest, Left. C - Labeled/Fixative: Specimen C, iliac crest, left, formalin. Quantity/Size: Fragments, averaging 0.1 cm. Tissue Description: Soft, bright red blood coagulum tissues. Sections/Processing: Submitted in toto in 1 cassette labeled C1. CCP 4 1:36 PM [facility] Disclaimer(s) Formalin-fixed, paraffin-embedded tissue sections are studied using the polymer technique with appropriate positive and negative controls. These IHC studies provide the pathologist with adjunctive diagnostic information. Antibody specificity has been verified by testing antibodies on a series of in-house tissues with known immunohistochemical performance characteristics. The clinical interpretation of any antibody positive staining or its absence is evaluated within the context of clinical presentation, morphology, histopathological criteria and other diagnostic tests. 4 1:36 PM [facility] Bone Marrow Aspirate Adequacy: Smear/touch preparations adequate, cellular. G:E ratio: 2:1 Erythroid: Complete normoblastic maturation, no left-shift. Rare forms with nuclear membrane irregularity and megaloblastic changes. Granulocyte: Complete normal maturation, no left-shift. Blasts: Not increased, <5%. Megakaryocyte: Normal in number and morphology. Rare small hypolobated form. Lymphocyte: Scattered mature forms seen, no aggregates appreciated. Plasma cells: Not increased, normal morphology. Other: Normal eosinophils, basophils, and mast cells. Iron stain: Iron stores present, no ring sideroblasts. 4 1:36 PM [facility] Bone Marrow Biopsy and/or Clot Core Adequacy: Decalcified, adequate, evaluable marrow present. Clot Adequacy: Marrow spicules present, findings similar to core. Cellularity: Patchy cellularity that averages normocellular overall (30%). Erythroid: Precursors numerically normal. Granulocyte: Precursors numerically normal. Megakaryocyte: Normal in number. Few small hypolobated forms seen. Lymphocytes: Small lymphoid aggregate identified consisting of small mature lymphoid cells with condensed chromatin. Plasma cells: Normal numbers. Other: Normal eosinophils, basophils, and mast cells. Bone: Trabecular bone normal for age. 1:36 PM EST [facility] Bone Marrow Differential Band/Seg 34%; Lymph 8%; [place] 0%; Eos 2%; Baso 1%; Metamyelocyte 13%; Myelocyte 9%; Promyelocyte 2%; Blast 1%; nRBC's 27%; Plasma cell 3% 1:36 PM [facility] Result Note Routine 1:36 PM [facility] Peripheral Blood Morphology RBCs: Mildly macrocytic anemia with rare target cells, ovalocytes. WBCs: Unremarkable. Platelets: Rare large platelet form present. 1:36 PM [facility] STRUCTURE OF LEFT ILIAC CREST / Unknown 06/05/2024 2:22 PM EST 06/05/2024 3:08 PM EST STRUCTURE OF LEFT ILIAC CREST / Unknown 06/05/2024 2:22 PM EST 06/05/2024 3:08 PM EST STRUCTURE OF LEFT ILIAC CREST / Unknown 06/05/2024 2:22 PM EST 06/05/2024 3:08 PM EST Markel Borjas MD PATHOLOGY/CYTOLOGY ORDERABLES [facility] [place] [address] * (ABNORMAL) CBC (with Diff) (06/05/2024 1:45 PM EST) White Blood Cell 3.06(L) 4.00 - 9.50 x10(3)/mc L 06/05/2024 2:38 PM [facility] Red Blood Cell 3.35(L) 4.00 - 5.21 x10(6)/mc L 06/05/2024 2:38 PM [facility] Hemoglobin 11.0(L) 11.7 - 15.5 g/dL 06/05/2024 2:38 PM [facility] Hematocrit 33.4(L) 35.7 - 45.8 % 06/05/2024 2:38 PM [facility] Mean Cell Volume 99.7(H) 82.6 - 94.4 fL 06/05/2024 2:38 PM [facility] Mean Cell Hemoglobin 32.8(H) 27.1 [...] Lymph % 20.9 % 06/05/2024 2:38 PM EST [facility] Lymph Absolute 0.64(L) 0.90 - 3.20 x10(3)/mc L 06/05/2024 2:38 PM EST [facility] Monocyte % 15.0 % 06/05/2024 2:38 PM [facility] Monocyte Absolute 0.46 0.30 - 0.90 x10(3)/mc L 06/05/2024 2:38 PM EST [facility] Eos % 0.3 % 06/05/2024 2:38 PM EST [facility] Eos Absolute <0.04 0.00 - 0.40 x10(3)/mc L 06/05/2024 2:38 PM EST [facility] Basophil % 0.7 % 06/05/2024 2:38 PM [facility] Baso Absolute <0.04 0.00 - 0.10 x10(3)/mc L 06/05/2024 2:38 PM EST [facility] Immature Gran % 0.3 % 2:38 PM [facility] Immature Gran Absolute <0.04 0.00 - 0.04 x10(3)/mc L 06/05/2024 2:38 PM [facility] Blood VENOUS BLOOD SPECIMEN / Unknown Venipuncture / Unknown 06/05/2024 1:45 PM EST 06/05/2024 1:59 PM EST Markel Borjas MD HEMATOLOGY ORDERAB LES [facility] [place] [address] documented in this encounter Visit Diagnoses Not [...] Hien Mckinnon RN)1412 (Given - Provider: Hien Tapia V RN) documented in this encounter Care Teams Continuous Conveyor Screen Drier Relationship Specialty Start Date End Date Magdalena Acosta MD [address] [place] [address] PCP - General Family Medicine 02/05/23 documented as of this encounter
--- OUTSIDE RECORDS SUMMARY | 2024-06-08 14:09 | XMS_ITS | Encounter Summary ---
Author Organization [facility] Address [address] [place] [address] Care Team Providers Care Biochemistry Technologist Name Role Phone Ashley Chavez Primary Care Provider [phone] Encounter Details Date Type Department Care Team (Late st Contact Info) Description 05/12/2022 Lab Requisition [facility] Pathology & Laboratory Medicine - [address] [id number] Outr Resulting Lab, Provider Social History Tobacco [...] Hold Hold 05/12/2022 22:46 EDT [facility] Blood VENOUS BLOOD / Unknown 05/12/2022 14:32 EDT 05/12/2022 21:40 EDT Provider Outr Resulting Lab LAB INFO SER VICE AND SUPPORT & PHONE RESULT Performing Organization Address [facility]/ZIP Co de Phone Number [facility] [address] [place] [address] * (ABNORMAL) HOMOCYSTEINE (05/12/2022 14:32 EDT) Homocysteine 14.7(H) 5.0 - 13.9 umol/L 05/13/2022 9:05 EDT [facility] Comment:Results may be false ly elevated if sample is not collected on ice or is not removed from cells within 1 hour of collection. Blood VENOUS BLOOD / Unknown 05/12/2022 14:32 EDT 05/12/2022 21:40 EDT Narrative [facility] - 05/13/2022 9:05 [...] Performing Organization Address [facility] Co de Phone Number [facility] [address] [place] [address] * HAPTOGLOBIN (05/12/2022 14:32 EDT) Pathologist [facility] Haptoglobin 138 32 - 197 mg/dL 05/13/2022 9:55 EDT [facility] Blood VENOUS BLOOD / Unknown 05/12/2022 14:32 EDT 05/12/2022 21:36 EDT Provider Outr Resulting Lab CHEMISTRY & BLOOD GAS ORDERABLES Performing Organization Address [facility] Co de Phone Number [facility] [address] [place] [address] * (ABNORMAL) ANTI NUCLEAR AB (FRANCISCO), IFA (05/12/2022 14:32 EDT) FRANCISCO Interpretation Positive(A) Negative 05/13/2022 14:44 EDT [facility] Comment: Result is [...] 1:5120 Speckled 05/13/2022 14:44 EDT [facility] Blood VENOUS BLOOD / Unknown 05/12/2022 14:32 EDT 05/12/2022 21:36 EDT Narrative [facility] - 05/13/2022 14:44 EDT Results were obtained with the INOVA NOVA Lite HEp-2 FRANCISCO Kit by indirect immunofluorescence. Provider Outr Resulting Lab IMMUNOLOGY A ND SEROLOGY ORDERABLES [facility] [address] [place] [address] documented in this encounter Visit Diagnoses Not on filedocumented in this encounter Care Teams Biochemistry Technologist Relationship Specialty Start Date End Date Ashley Chavez ARNP [address] [place] [address] PCP - General 07/11/10 documented as of this encounter
--- OUTSIDE RECORDS SUMMARY | 2024-06-08 14:09 | XMS_ITS | Encounter Summary ---
Author Organization [facility] Address [address] [place] [address] Care Team Providers Care Care Coordination Manager Name Role Phone Scott Ashley WILLIAM Primary Care Provider [phone] Encounter Details Date Type Department Care Team (Late st Contact Info) Description 05/12/2019 Results Only [facility] [phone] Nadira Gregorio MD [address] [place] [phone] Social History Tobacco Use Types Packs/Day [...] ? PURNIMA THACKER ? Accession #: ? [id number] ? : ? 1955 (Age: 63) ??F ? Collect Date: ? 05/12/2019 ? Location: ? [facility] ? Receive Date: ? 05/12/2019 ? Provider: NADIRA GREGORIO MD Copy to: [employer] ? Final Pathologic Diagnosis: COLON, CECUM, POLYP, [...] 05/12/2019 6:08 PM End of Report [facility] 05/12/2019 16:0 3 EDT 05/12/2019 16:03 EDT Nadira Gregorio MD PATHOLOGY ORDERABLES [facility] [address] [place] [address] documented in this encounter Visit Diagnoses Not on filedocumented in this encounter Care Teams Care Coordination Manager Relationship Specialty Start Date End Date Ashley Chavez ARNP [address] [place] [address] PCP - General 07/11/10 documented as of this encounter
--- OUTSIDE RECORDS SUMMARY | 2024-06-08 14:09 | XMS_ITS | Referral Summary ---
Author Organization [facility] Address [address] [place] [address] Care Team Providers Care Rail Tractor Operator Name Role Phone Ashley Chavez Primary Care Provider [phone] Encounters Date Type Department Care Team Description 03/22/2024 Lab Requisition [facility] Pathology & Laboratory [address] [address] Consuelo Guerrero, DO Diaphragmatic hernia without obstruction or gangrene; Anemia, unspecified 03/21/2024 Lab Requisition [facility] Pathology & Laboratory [address] [address] Consuelo Guerrero DO Encounter for other general examination 03/21/2024 Lab Requisition [facility] Pathology & Laboratory [address] [address] Outr Resulting Lab, Provider from Last 3 [...] 13:00 EDT) LORY Negative 03/21/2024 22:31 EDT [facility] Blood VENOUS BLOOD / Unknown 03/21/2024 13:00 EDT 03/21/2024 21:51 EDT Consuelo Guerrero DO BLOOD BANK TESTS Performing Organization Address [facility] Co de Phone Number [facility] [address] [place] [address] * HAPTOGLOBIN (03/21/2024 13:00 EDT) Haptoglobin 183 32 - 197 mg/dL 03/22/2024 10:25 EDT [facility] Blood VENOUS BLOOD / Unknown 03/21/2024 13:00 EDT 03/21/2024 21:50 EDT Provider Outr Resulting Lab CHEMISTRY & BLOOD GAS ORDERABLES Performing Organization Address [facility] Co de Phone Number [facility] [address] [place] [address] * SURGICAL PATHOLOGY (03/21/2024 11:35 EDT) Note to Patient The following pathology results have been interpreted by your pathologist and may be available to you before your health provider has had the opportunity to review them. Please allow time for your provider to receive these results and explore management options, if applicable. 03/24/2024 10:36 EDT [facility] Final Diagnosis A. JEJUNUM, [...] - Deeper sections x3 examined. 03/24/2024 10:36 [facility] Attestation There was significant resident/fellow involvement in the diagnostic evaluation of this case. By the signature below, the attending physician certifies that they have personally conducted a gross and/or microscopic examination of the described specimens and rendered or confirmed the above diagnosis. 03/24/2024 10:36 [facility] at 1036 Clinical History Anemia, hiatal hernia, 38 cm aguayo diverticulosis 03/24/2024 10:36 [facility] Gross Description A. Received [...] Luis Torres 03/22/2024 9:36 03/24/2024 10:36 EDT [facility] Resident/Estuardo w: Luis Felipe Bragg DO 03/24/2024 10:36 EDT [facility] Performing Lab [facility] 10:36 EDT [facility] Scanned Images 03/24/2024 10:36 EDT [facility] Tissue POLYP OF [...] 8:19 EDT Consuelo Guerrero DO PATHOLOGY ORDERABLES [facility] [address] [place] [id number] from Last 3 Months Care Teams Rail Tractor Operator Relationship Specialty Start Date End Date Ashley Chavez ARNP [address] [place] [address] PCP - General 07/11/10
--- OUTSIDE RECORDS SUMMARY | 2024-06-08 14:09 | XMS_ITS | Encounter Summary ---
[place] [address] Care Team Providers Care Metal Leaf Layer Name Role Phone Magdalena Acosta MD Primary Care Provider [phone] Encounter Details Date Type Department Care Team (Late st Contact Info) Description 05/18/2024 Interpretation Only [address] [phone] Magdalena Acosta MD [address] [place], [place] [id number] Social History Tobacco Use Types Packs/Day Years [...] EST Office Visit [place] [address] Markel Borjas MD [facility] [address] [place] [address] 11/02/2024 12:00 PM EDT [place] [address] 11/02/2024 1:00 PM EDT [place] [address] Magdalena Peralta MD [facility] [place] [address] 03/01/2025 4:15 PM EDT Office Visit Dermatology at [place] [address] [place] [phone] Marek Bonilla MD [address], [place] [address] documented as of this encounter Procedures Procedure Name Priority Date/Time Associated Diagnosis Comments MAMMO SCREENING CAD BILATERAL (CH) Routine 05/18/2024 11:21 AM EDT documented in this encounter Results * MAMMO SCREENING CAD BILATERAL (CH) (05/18/2024 11:21 AM EDT) PT CLASS O RAD ADMITDTTM [id number] RAD PT RAD INFO [id number]^Dave ^Magdalena RAD EXAM [facility]^MG Mammo Digital Screening Bilateral.^RIS RAD WORKSTATION ID [...] have questions please contact the health landcare officer that requested your imaging first. ? Electronically signed by: Rocael Villatoro MD, [facility] ([phone]), at 05/18/2024 3:[address] ??[id number] Narrative 05/18/2024 3:05 PM EDT EXAMINATION: MG [...] who have questions please contactthe health landcare officer that [place] [address] Magdalena Acosta MD [facility] documented in this encounter Visit Diagnoses Not on filedocumented in this encounter Care Teams Metal Leaf Layer Relationship Specialty Start Date End Date Magdalena Acosta MD [address] [place] [address] PCP - General Family Medicine 02/05/23 documented as of this encounter
--- OUTSIDE RECORDS SUMMARY | 2024-06-08 14:09 | XMS_ITS | Encounter Summary ---
Author Organization [facility] Address [address] [place] [address] Care Team Providers Care Results Engineer Name Role Phone Scott Ashley WILLIAM Primary Care Provider [phone] Encounter Details Date Type Department Care Team (Late st Contact Info) Description 11/10/2013 Results Only [facility] [phone] Jeni Laird, ECHOCARDIOGRAPHY TECH [address] [place], [place] [phone] Social History Tobacco Use Types Packs/Day Years [...] ? PURNIMA THACKER ? Accession #: ? [id number] : ? 1955 (Age: 58) ??F ?Collect Date: ? 11/10/2013 Location: ? [facility] ? Receive Date: ? 11/14/2013 Provider: ?JENI LAIRD ECHOCARDIOGRAPHY TECH Copy to: ? Specimen/Source: ?Pap Test, Endocervix, [...] Report PAUL ARELLANO 11/10/2013 11/14/2013 Jeni Laird ECHOCARDIOGRAPHY TECH PATHOLOGY ORDERAB LES Performing Organization Address City/State/[facility] Co de Phone Number PAUL ARELLANO [address] [place] [address] documented in this encounter Visit Diagnoses Not on filedocumented in this encounter Care Teams Results Engineer Relationship Specialty Start Date End Date Ashley Chavez ARNP [address] [place] [address] PCP - General 07/11/10 documented as of this encounter
--- OUTSIDE RECORDS SUMMARY | 2024-06-08 14:09 | XMS_ITS | Encounter Summary ---
Author Organization [facility] Address [address] [place] [address] Care Team Providers Care Mechanical Developer Prover Name Role Phone Ashley Chavez Primary Care Provider [phone] Encounter Details Date Type Department Care Team (Latest Contact Info) Description 05/12/2019 13:18 EDT - 05/12/2019 23:59 EDT Hospital Encounter [address] [address] Unknown, Provider, MD Discharge Disposition: Home or Self Care Social History Tobacco Use Types Packs/Day Years Used Date Smoking Tobacco: Never Assessed Sex and Gender Information Value Date Recorded Sex Assigned at Not on file Gender Identity Not on file Sexual Orientation Not on file documented as of this encounter Discharge Disposition Disposition Code Departure Means Destination Home or Self [facility]pc documented in this encounter Plan of Treatment Not on file documented as of this encounter Visit Diagnoses Not on filedocumented in this encounter Care Teams Mechanical Developer Prover Relationship Specialty Start Date End Date Ashley Chavez ARNP [address] [place] [address] PCP - General 07/11/10 documented as of this encounter
--- OUTSIDE RECORDS SUMMARY | 2024-06-08 14:09 | XMS_ITS | Encounter Summary ---
Author Organization [facility] Address [address] [place] [address] Care Team Providers Care Pinsetter Mechanic Helper Name Role Phone Unavailable Primary Care Provider Unavailabl e Encounter Details Date Type Department Care Team (Late st Contact Info) Description 04/20/2005 Results Only [facility] - Maple conversion [address] [place] [address] Ziggy Valiente MD [address] [place] [id number] Social History Tobacco Use Types Packs/Day Years [...] ? PURNIMA THACKER ? Accession #: ? [id number] ? : ? 1955 (Age: 49) ??F [...] endoscopic appearance is recommended. (Dr. Chino)/[facility] Document reviewed and electronically signed by: [...] is entirely submitted in one cassette. ??(Arabella Santos)/[facility] End of Report PAUL ARELLANO 04/20/2005 04/21/2005 15: 04 EDT Ziggy Valiente MD PATHOLOGY ORDERABLES PAUL ARELLANO [address] [place] [address] documented in this encounter Visit Diagnoses Not on filedocumented in this encounter
--- OUTSIDE RECORDS SUMMARY | 2024-06-08 14:09 | XMS_ITS | Encounter Summary ---
Author Organization [facility] Address [address] [place] [address] Care Team Providers Care Manager Database Administration Name Role Phone Unavailable Primary Care Provider Unavailabl e Encounter Details Date Type Department Care Team (Late st Contact Info) Description 03/24/2007 Results Only [facility] Non-Invasive Cardiology - [facility] [address] [place], [place] [address] Ashley Chavez ARNP [address] [place] [address] Social History Tobacco Use Types Packs/Day Years [...] ? PURNIMA THACKER ? Accession #: ? [id number] : ? 1955 (Age: 51) ??F ?Collect Date: ? 03/24/2007 Location: ? [facility] ? Receive Date: ? 03/28/2007 Provider: ?ASHLEY THOMAS Copy to: ? Specimen/Source: ?ThinPrep Pap Test, Endocervix, processed on [employer] ThinPrep Imaging System, with manual evaluation Last [...] Ashley THOMAS PATHOLOGY ORDERABLES PAUL ARELLANO [address] [place] [address] documented in this encounter Visit Diagnoses Not on filedocumented in this encounter
--- OUTSIDE RECORDS SUMMARY | 2024-06-08 14:09 | XMS_ITS | Encounter Summary ---
Author Organization [facility] Address [address] [place] [address] Care Team Providers Care Video Engineer Name Role Phone Ashley Chavez Primary Care Provider [phone] Encounter Details Date Type Department Care Team (Late st Contact Info) Description 03/22/2024 Lab Requisition [facility] Pathology & Laboratory Medicine - [address] [address] Consuelo Guerrero, DO [address] [place], [place] [address] Diaphragmatic hernia without obstruction or gangrene; Anemia, [...] explore management options, if applicable. 03/24/2024 10:36 [facility] Final Diagnosis A. [...] Deeper sections x3 examined. 03/24/2024 10:36 [facility] Attestation There was significant resident/fellow involvement in the diagnostic evaluation of this case. By the signature below, the attending physician certifies that they have personally conducted a gross and/or microscopic examination of the described specimens and rendered or confirmed the above diagnosis. 03/24/2024 10:36 [facility] at [address]36 Clinical History Anemia, hiatal hernia, 38 cm aguayo diverticulosis 03/24/2024 10:36 [facility] Gross Description A. [...] Luis Torres 03/22/2024 9:36 03/24/2024 10:36 EDT [facility] Resident/Estuardo w: Luis Felipe Bragg DO 03/24/2024 10:36 T [facility] Performing Lab [facility] 10:36 T [facility] Scanned Images 03/24/2024 10:36 T [facility] Tissue POLYP OF COLON [...] 8:19 EDT Consuelo Guerrero DO PATHOLOGY ORDERABLES [facility] [address] [place] [address] documented in this encounter Visit Diagnoses Diagnosis Diaphragmatic hernia without obstruction or gangrene Diaphragmatic hernia without mention of obstruction or gangrene Anemia, unspecified documented in this encounter Care Teams Video Engineer Relationship Specialty Start Date End Date Ashley Chavez ARNP [address] [place] [address] PCP - General 07/11/10 documented as of this encounter
--- OUTSIDE RECORDS SUMMARY | 2024-06-08 14:09 | XMS_ITS | Encounter Summary ---
Author Organization [facility] Address [address] [place] [address] Care Team Providers Care Finger Buffs Assembler Name Role Phone Ashley Chavez Primary Care Provider [phone] Encounter Details Date Type Department Care Team (Late st Contact Info) Description 10/30/2022 Lab Requisition [facility] Pathology & Laboratory Medicine - [address] [address] Outr Resulting Lab, Provider Social History Tobacco [...] Stranded) <12.3 <30.0 IU/mL 11/03/2022 13:08 EDT [facility] Comment: ? Negative: ??<30.0 IU/mL ? Borderline Positive: ??30.0 - 75.0 IU/mL ? Positive: ??>75.0 IU/mL Results were obtained with the [employer] QUANT[employer] Lite dsDNA SC DOMO assay on the [employer] DSX. Blood VENOUS BLOOD / Unknown 10/29/2022 14:00 EDT 10/30/2022 19:27 EDT Provider Outr Resulting Lab IMMUNOLOGY A ND SEROLOGY ORDERABLES Performing Organization Address [facility] de Phone Number [facility] [address] [place] [address] * SM (M[place]ENO) ANTIBODY (10/29/2022 14:00 EDT) [facility] SM ([place]) Antibody 18.5 <20.0 Units 11/03/2022 14:26 EDT [facility] Comment: ? Negative: <20.0 [...] SEROLOGY ORDERABLES Performing Organization Address [facility] de Phone Number [facility] [address] [place] [address] documented in this encounter Visit Diagnoses Not on filedocumented in this encounter Care Teams Finger Buffs Assembler Relationship Specialty Start Date End Date Ashley Chavez ARNP [address] [place] [address] PCP - General 07/11/10 documented as of this encounter
--- OUTSIDE RECORDS SUMMARY | 2024-06-08 14:09 | XMS_ITS | Clinical Summary ---
Author Organization [facility]ly [facility] Address [facility] [place] [address] Care Team Providers Care Homicide Squad Captain Name Role Phone Magdalena Acosta MD Primary Care Provider [phone] Allergies No known active allergies Medications Medication [...] Mild coronary artery disease by [facility] 11/09/2022 Heart failure with reduced e [...] 2:00 PM EST - 06/05/2024 3:00 PM [facility] Surgery [facility] [place] [address] Markel Borjas MD ([facility]) BONE MARROW BIOPSY AND ASPIRATION; DIAGNOSTIC (WRVU 1.44) 06/05/2024 1:04 PM EST - 06/05/2024 3:08 PM EST Hospital Encounter [facility] [place] [address] Markel Borjas MD Discharge Disposition: Home 06/01/2024 10:00 AM EDT Office Visit Rheumatology at [place] [phone] Magdalena Peralta MD Mixed connective tissue disease 05/31/2024 Travel 05/24/2024 Refill Internal Medicine at [place] [phone] Magdalena Peralta MD 05/18/2024 Interpretation Only [address] [address] Magdalena Acosta MD 05/18/2024 Interpretation Only [address] [phone] Magdalena Acosta MD 05/12/2024 10:00 AM EDT Office Visit Hematology [place] [phone] Markel Borjas MD Chronic idiopathic neutropenia 05/12/2024 9:00 AM EDT Laboratory Appointment Lab at [facility] [place] Hematology Oncology [address] [place], [place] [phone] S/P TAVR (transcatheter aortic valve replacement); Chronic idiopathic neutropenia 05/12/2024 Travel 05/10/2024 Travel 04/11/2024 Transcribe Orders eDH Incoming Referrals [phone] Consuelo Guerrero DO Anemia, unspecified type from [...] EST Office Visit Hematology [place] [phone] Markel Borjas MD [facility] DR [place]Y [place] [address] 11/02/2024 12:00 PM EDT [place]ment [place] [phone] 11/02/2024 1:00 PM EDT Office [place] [address] Magdalena Peralta MD [facility] [place] [address] 03/01/2025 4:15 PM EDT Office Visit Dermatology at [place] [address] [place] [phone] Marek Bonilla MD [address] [place] [address] Health Maintenance Due Date Last Done Comments [...] 05/18/2024, 06/05/2021 Medical Devices Implanted Type Area Bicycle I Assembler Device Identifier Shelf Expiration Date Model / Serial / Lot Valve,Aor,Pericar d,Magna,25mm ([id number]) - [id number] Implanted:Qty: 1 on 09/21/2016 by Alirio Esparza MD at [facility] IMPLANTS N/A: Heart DO NOT USE [employer] - [id number] 06/02/2020 [id number] / / [id number] Cable,Blnt,Ss,38i n ([id number]) - [id number] Implanted:Qty: 4 on 09/21/2016 by Alirio Esparza MD at [facility] IMPLANTS N/A: Chest [employer] - [id number] 04/29/2021 [id number] / / [id number] Patch,Cav,Pericar d,2x5cm ([id number]) (Autoreq) - [id number] Implanted:Qty: 1 on 09/21/2016 by Alirio Esparza MD at [facility] IMPLANTS N/A: Heart DO NOT USE [employer] - [id number] 04/21/2018 [id number] / / [id number] Tavr-05/12/2023 Implanted:Qty: 1 on 05/12/2023 by Antelmo Sharma MD Other Heart [employer] - [place] [id number] / [id number] / Description:JAIME [employer] NCES ABBY 3 ULTRA RESILIA TRANSCATHETER HEART VALVE Procedures Procedure Name Priority Date/Time Associated Diagnosis Comments BM HOLD CG/FISH Routine 06/05/2024 2:22 PM EST BM HOLD FLOW/MOLECULAR Routine 2:22 PM EST BONE MARROW ANALYSIS Routine 06/05/2024 2:22 PM EST BONE MARROW Routine 06/05/2024 2:22 PM EST IMMUNOPHENOTYPING FLOW CYTOMETRY Routine 06/05/2024 2:22 PM EST Diagnostic Bone Marrow Biopsies & Aspirations (38157) 06/05/2024 2:03 PM EST Anemia, in pt [...] PM EST 06/05/2024 3:07 PM EST Narrative [facility] - 06/06/2024 10:47 AM EST ~3ml Markel Borjas MD PATHOLOGY/CYTOLOGY ORDERABLES Performing Organization Address [facility] de Phone Number [facility] [place] [address] * BM HOLD FLOW/MOLECULAR (06/05/2024 2:22 PM EST) Bone Marrow Non Blood Collection / Unknown 06/05/2024 2:22 PM EST 06/05/2024 3:07 PM EST Markel Borjas MD PATHOLOGY/CYTOLOGY ORDERABLES Performing Organization Address [facility] Co de Phone Number [facility] [place] [address] * Bone Marrow (06/05/2024 2:22 PM EST) Case Report Bone Marrow Patholog y Report ?Case: [id number] ? Authorizing Provider: ??Markel Borjas MD ?Collected: ? 06/05/2024 1422 ? Ordering Location: ? [facility] ??Received: ?06/05/2024 1508 ? [facility] ? Hospital ? Pathologist: ? Georges Boucher, MD ? Specimens: ?? A) - Iliac Crest, Left ? B) - Iliac Crest, Left ? C) - Iliac Crest, Left ? 4 1:36 PM EST [facility] Final Diagnosis BONE MARROW (BLOOD FILM, ASPIRATE, TOUCH PREP, CORE & CLOT SECTIONS): 1. Normocellular bone marrow with maturing trilineage hematopoiesis. No overt dysplasia or increased blasts. 2. Ancillary studies pending. 4 1:36 PM [facility] Discussion The patient's histor y of [...] integrated report to follow. 4 1:36 PM [facility] Additional Studies Task ID IHC/Special Stains Result B1-3 Myeloperoxidase Highlights granulocytic precursors. B1-4 CD34 Highlights rare blasts (<5% of cells) B1-5 CD117 Highlights rare mast cells. B1-6 E-Cadherin Highlights normal erythroid precursors. B1-7 CD61 Highlights normal megakaryocytes. 4 1:36 PM [facility] Clinical Information Anemia, in patient with presumed hx of benign neutropenia 4 1:36 PM [facility] Gross Description A. Iliac Crest, Left. Number of Lavender (EDTA) tubes: 3 Total Volume of Lavender (EDTA) tubes: 8 ml Number of Green (NaHep) tubes: 1 Total Volume of Green (NaHep) tubes: 3 ml Spicule/Clot Section submitted? Present Tube to Biorepository? Present Processed by: Abbie Barrow Collected off the [facility] by: N/A B. Iliac Crest, Left. B [...] toto in 1 cassette labeled C1. CCP 1:36 PM [facility] Disclaimer(s) Formalin-fixed, paraffin-embedded tissue sections are [...] morphology, histopathological criteria and other diagnostic tests. 1:36 PM [facility] Bone Marrow Aspirate Adequacy: Smear/touch preparations [...] stain: Iron stores present, no ring sideroblasts. 1:36 PM [facility] Bone Marrow Biopsy and/or Clot Core [...] Trabecular bone normal for age. 1:36 PM [facility] Bone Marrow Differential Band/Seg 34%; Lymph 8%; Zapata 0%; Eos 2%; Baso 1%; Metamyelocyte 13%; Myelocyte 9%; Promyelocyte 2%; Blast 1%; nRBC's 27%; Plasma cell 3% 11/06/202 4 1:36 PM EST [facility] Result Note Routine 4 1:36 PM [facility] Peripheral Blood Morphology RBCs: Mildly macrocytic anemia with rare target cells, ovalocytes. WBCs: Unremarkable. Platelets: Rare large platelet form present. 4 1:36 PM [facility] STRUCTURE OF LEFT ILIAC CREST / Unknown 06/05/2024 2:22 PM EST 06/05/2024 3:08 PM EST STRUCTURE OF LEFT ILIAC CREST / Unknown 06/05/2024 2:22 PM EST 06/05/2024 3:08 PM EST STRUCTURE OF LEFT ILIAC CREST / Unknown 06/05/2024 2:22 PM EST 06/05/2024 3:08 PM EST Markel Borjas MD PATHOLOGY/CYTOLOGY ORDERABLES [facility] [place] [address] * Immunophenotyping Flow Cytometry (06/05/2024 2:22 PM EST) Final Diagnosis - No monotypic B-cell population, no monotypic plasma cell population, no phenotypically abnormal T-cell population or increase in blasts is detected. 06/06/2024 2:08 PM [facility] Signing Pathologist This result has been reviewed by Georges Boucher MD on 06/06/24 at 2:08 PM. 06/06/2024 2:08 PM EST [facility] Interpretation CD19+ B-cells show [...] significant blast populations identified. 06/06/2024 2:08 PM [facility] Lymphocyte % 4.7 % 06/06/2024 2:08 PM [facility] Monocyte % 3.0 % 06/06/2024 2:08 PM [facility] Granulocyte % 76.0 % 06/06/2024 2:08 PM [facility] CD45 DIM % 0.9 % 06/06/2024 2:08 PM [facility] CD38 Bright/CD138+ 0.2 % 06/06/2024 2:08 PM [facility] CD3+ % 70.0 % 06/06/2024 2:08 PM [facility] CD19+ % 17.0 % 06/06/2024 2:08 PM [facility] CD56+ % 12.0 % 06/06/2024 2:08 PM [facility] B-Cell:T-Cell Ratio 0.2 06/06/2024 2:08 PM [facility] [place]:Lambda Ratio 1.8 06/06/2024 2:08 PM [facility] CD4:CD8 Ratio 1.6 06/06/2024 2:08 PM [facility] Specimen Processing Cells for immunophenotypic analysis were derived from bone marrow. The following markers were assessed: CD2, CD3, CD4, CD5, CD7, CD8, CD10, CD19, CD20, CD38, CD45, CD56, CD138, kappa light chain, (c)kappa light chain, lambda light chain, (c)lambda light chain,CD13, CD14, CD34, CD45, CD117, and HLA-DR. 06/06/2024 2:08 PM [facility] Disclaimer Flow analysis is an ancillary study. A definite diagnosis requires correlation with the morphologic features of this process and if necessary, correlation with other ancillary studies like immunohistochemist ry, enzyme cytochemistry and/or cyto/molecular genetics. This test was developed and its performance characteristics determined by the Clinical Flow Cytometry Laboratory at [facility]. It has not been cleared or [...] clinical laboratory testing. 06/06/2024 2:08 PM EST [facility] Bone Marrow Non Blood Collection / Unknown 06/05/2024 2:22 PM EST 06/05/2024 3:07 PM EST Georges Boucher MD HEMATOLOGY ORDERABLE S [facility] [place] [address] * (ABNORMAL) CBC (with Diff) (06/05/2024 1:45 PM EST) Only the most recent of2 resultswithin the time period is included. White Blood Cell 3.06(L) 4.00 - 9.50 x10(3)/mc L 06/05/2024 2:38 PM [facility] Red Blood Cell 3.35(L) 4.00 - 5.21 x10(6)/mc L 06/05/2024 2:38 PM [facility] Hemoglobin 11.0(L) 11.7 - 15.5 g/dL 06/05/2024 2:38 PM [facility] Hematocrit 33.4(L) 35.7 - 45.8 % 06/05/2024 2:38 PM [facility] Mean Cell Volume 99.7(H) 82.6 - 94.4 fL 06/05/2024 2:38 PM [facility] Mean Cell Hemoglobin 32.8(H) 27.1 - 32.0 pg 06/05/2024 2:38 PM [facility] Mean Cell Hemoglobin Concentration 32.9 31.7 - 35.0 g/dL 06/05/2024 2:38 PM [facility] Platelet 151 145 - 357 x10(3)/mc L 06/05/2024 2:38 PM [facility] Mean Platelet Volume 8.9 7.6 - 12.9 fL 06/05/2024 2:38 PM [facility] RDW Standard Deviation 44.3 37.0 - 46.0 fL 06/05/2024 2:38 PM [facility] RDW coefficient of variation 12.0 11.5 - 14.1 % 06/05/2024 2:38 PM [facility] NRBC% auto 0.0 % 06/05/2024 2:38 PM [facility] NRBC Absolute <0.01 <0.01 x10(3)/mc L 06/05/2024 2:38 PM [facility] Neutrophil % 62.8 % 06/05/2024 2:38 PM [facility] Neutrophil Absolute (ANC) - Automated 1.92 1.70 - 6.10 x10(3)/mc L 06/05/2024 2:38 PM [facility] Lymph % 20.9 % 06/05/2024 2:38 PM [facility] Lymph Absolute 0.64(L) 0.90 - 3.20 x10(3)/mc L 06/05/2024 2:38 PM [facility] Monocyte % 15.0 % 06/05/2024 2:38 PM [facility] Monocyte Absolute 0.46 0.30 - 0.90 x10(3)/mc L 06/05/2024 2:38 PM [facility] Eos % 0.3 % 06/05/2024 2:38 PM [facility] Eos Absolute <0.04 0.00 - 0.40 x10(3)/mc L 06/05/2024 2:38 PM [facility] Basophil % 0.7 % 06/05/2024 2:38 PM [facility] Baso Absolute <0.04 0.00 - 0.10 x10(3)/mc L 06/05/2024 2:38 PM EST [facility] Immature Gran % 0.3 % 2:38 PM EST [facility] Immature Gran Absolute <0.04 0.00 - 0.04 x10(3)/mc L 06/05/2024 2:38 PM EST [facility] Blood VENOUS BLOOD SPECIMEN / Unknown Venipuncture / Unknown 06/05/2024 1:45 PM EST 06/05/2024 1:59 PM EST Markel Borjas MD HEMATOLOGY ORDERAB LES [facility] [place] [address] * DXA Central Spine, Hip, and/or Whole Body (Generic) (05/18/2024 11:21 AM EDT) PT CLASS O RAD ADMITDTTM [id number] RAD PT [facility] INFO [id number]^Dave ^Magdalena RAD EXAM DESC XDXAC^BD Bone Density DEXA Axial Skeleton^RIS [facility] WORKSTATION ID RADDRIMAGE [facility] Anatomical Region Laterality Modality C-spine, Hip [...] have questions please contact the health rn acute care that requested your imaging first. ? Electronically signed by: Rocael Villatoro MD, [facility] ([phone]), at 05/18/2024 11:25 AM Narrative 05/18/2024 11:25 [...] who have questions please contactthe health rn acute care that requested your imaging first. Electronically signed by: Rocael Villatoro MD, [facility]([phone]), at 05/18/2024 11:25 AM Magdalena Acosta MD IMG DEXA ORDERABLES * MAMMO SCREENING CAD BILATERAL (CH) (05/18/2024 11:21 AM EDT) PT CLASS O RAD ADMITDTTM [id number] RAD PT RAD INFO [id number]^Dave ^Magadlena RAD EXAM DESC MADDSCCH^MG Mammo Digital Screening Bilateral.^RIS RAD WORKSTATION ID RADDRIMAGE [facility] Anatomical Region Laterality Modality Other 05/18/2024 [...] have questions please contact the health rn acute care that requested your imaging first. ? [address] ??[address] Narrative 05/18/2024 3:05 PM EDT EXAMINATION: MG [...] who have questions please contactthe health rn acute care that [place] [address] Magdalena Acosta MD PACS IMAGES * Reticulocyte [...] EDT 05/12/2024 8:56 AM EDT Tova Russell WALKING DRAGLINE OILER HEMATOLOGY ORDERABL ES [facility] [place] [address] * (ABNORMAL) Comprehensive metabolic panel Non-fasting (05/12/2024 8:56 AM EDT) Glucose 86 65 - 199 mg/dL 05/12/2024 11:36 AM [facility] Comment:Glucose Concentratio n >=200 mg/dL plus symptoms is consistent with Diabetes Mellitus. Blood Urea Nitrogen 20(H) 8 - 18 mg/dL 05/12/2024 11:36 AM [facility] Creatinine 0.88 0.70 - 1.20 mg/dL 05/12/2024 11:[facility] Sodium 145 135 - 145 mMol/L 05/12/2024 11:36 AM [facility] Potassium 4.6 3.5 - 5.0 mMol/L 05/12/2024 11:36 [facility] Chloride 109(H) 98 - 107 mMol/L 05/12/2024 11:36 AM [facility] Carbon Dioxide 21(L) 22 - 31 mMol/L 05/12/2024 11:36 AM EDT [facility] Anion Gap 15 5 - 15 mMol/L 05/12/2024 11:36 AM [facility] Comment:Not Calculated. Calcium 9.9 8.5 - 10.5 mg/dL 05/12/2024 11:36 AM [facility] Protein, Total 7.3 6.1 - 8.0 g/dL 05/12/2024 11:36 AM [facility] Albumin 4.5 3.2 - 5.2 g/dL 05/12/2024 11:36 AM [facility] Aspartate Aminotransferase 24 <=30 unit/L 05/12/2024 11:36 AM [facility] Alanine Aminotransferase 14 0 - 30 unit/L 05/12/2024 11:36 AM [facility] Alkaline Phosphatase 98 35 - 105 unit/L 05/12/2024 11:36 AM [facility] Bilirubin, Total 0.2 <=1.3 mg/dL 05/12/2024 11:36 AM [facility] Est Glomerular Filtration Rate - Female 72 mL/min/1. 73 m?? 05/12/2024 11:36 AM [facility] Comment: This patient's estimated [...] Foundation Fasting Status No 05/12/2024 11:36 AM [facility] Blood VENOUS BLOOD SPECIMEN / Unknown Venipuncture / Unknown 05/12/2024 8:56 AM EDT 05/12/2024 8:56 AM EDT Tova Russell WALKING DRAGLINE OILER CHEMISTRY ORDERABLE S [facility] [address] [place] [address] from Last 3 Months Advance Directives * [...] capacity to make decision: Yes Care Teams Homicide Squad Captain Relationship Specialty Start Date End Date Magdalena Acosta MD [address] [place] [address] PCP - General Family Medicine 02/05/23
--- OUTSIDE RECORDS SUMMARY | 2024-06-08 14:09 | XMS_ITS | Encounter Summary ---
Author Organization [facility] Address [facility] [place] [address] Care Team Providers Care Ops Analyst Name Role Phone Magdalena Acosta MD Primary Care Provider [phone] Encounter Details Date Type Department Care Team (Late st Contact Info) Description 06/01/2024 10:00 AM EDT Office [place] [address] [facility] [place] [address] Mixed connective tissue disease Social History Tobacco Use Types Packs/Day Years Used Date Smoking Tobacco: Never Smokeless Tobacco: Never Alcohol Use Standard Drinks/Week Comments No 0 (1 standard drink = 0.6 oz pur e alcohol) none [facility] Inpatient Questions Answer Date Recorded [...] through Care Everywhere. * Knee Arthritis: Exercises (Swedish) documented in this encounter Progress Notes * [...] 1:5120 speckled; VIC negative; Myositis panel with SWAT TEAM MEMBER ab 149.1 (positive); Anti U1RNP IgG 119; [...] that osteoporosis is not an indication for rat exterminator systemic steroid therapy as it is not [...] Dr. Roma Peralta MD Rheumatology Fellow Pager: [phone] * Kuldeep Brandon MD - 06/01/2024 10:00 [...] and therapeutic plans. Kuldeep Brandon MD Staff Supervisor In [employer] Testing documented in this encounter Plan of Treatment Upcoming Encounters Date Type Department Care Team (Late st Contact Info) Description 06/23/2024 2:00 PM EST Office Visit Hematology [place] [address] [facility] [address] [place] [address] 11/02/2024 12:00 PM EDT [place]ointment [place] [address] 11/02/2024 1:00 PM EDT Office [place] [address] [facility] [place] [address] 03/01/2025 4:15 PM EDT Office Visit Dermatology at [place] [address] [place] [phone] Marek Bonilla MD [address] [place] [address] Scheduled Orders Name Type Priority Associated Diagnoses Orde r Schedule Common Pulmonary Function Test PFT Routine Mixed connective tissue disease Expected: 10/31/2024, Expires: 06/01/2025 documented as of this encounter Visit Diagnoses Diagnosis Mixed connective tissue disease Other specified diffuse disease of connective tissue documented in this encounter Care Teams Ops Analyst Relationship Specialty Start Date End Date Magdalena Acosta MD [address] [place] [address] PCP - General Family Medicine 02/05/23 documented as of this encounter
--- OUTSIDE RECORDS SUMMARY | 2024-06-08 14:09 | XMS_ITS | Encounter Summary ---
Author Organization [facility] Address [address] [place] [address] Care Team Providers Care Customer Data Technician Name Role Phone Unavailable Primary Care Provider Unavailabl e Encounter Details Date Type Department Care Team (Late st Contact Info) Description 03/24/2007 11:06 EDT - 03/24/2007 11:59 EDT Hospital Encounter [facility] - Other [address] [place] [address] Ashley Chavez ARNP [address] [place] [address] Discharge Disposition: Home or Self Care Social [...]
--- OUTSIDE RECORDS SUMMARY | 2024-06-08 14:09 | XMS_ITS | Encounter Summary ---
Author Organization [facility] Address [address] [place] [address] Care Team Providers Care Inflated Pad Buffer Name Role Phone Unavailable Primary Care Provider Unavailabl e Encounter Details Date Type Department Care Team (Late st Contact Info) Description 06/29/2007 Results Only [facility] [address] [place] [address] Sánchez Acevedo MD [address] [place] [id number] Social History Tobacco Use Types Packs/Day Years [...] ? PURNIMA THACKER ? Accession #: ? [id number] ? : ? 1955 (Age: 51) ??F [...] by a smooth white serosa. ??Three senior human resources representative sections of the gallbladder are submitted in one cassette. ??(Sriram Elias/[facility] End of Report [facility] 06/29/2007 06/29/2007 21: 23 EST Sánchez Acevedo MD PATHOLOGY ORDERABLE S [facility] [address] [place] [address] documented in this encounter Visit Diagnoses Not on filedocumented in this encounter
--- OUTSIDE RECORDS SUMMARY | 2024-06-08 14:09 | XMS_ITS | Encounter Summary ---
Author Organization [facility] Address [address] [place] [address] Care Team Providers Care Rn Wellness Name Role Phone Ashley Chavez Primary Care Provider [phone] Encounter Details Date Type Department Care Team (Late st Contact Info) Description 06/23/2016 Results Only [facility] [phone] Matthew Acevedo, DO [address] [facility] [address] [place] [address] Social History Tobacco Use Types Packs/Day [...] ? PURNIMA THACKER ? Accession #: ? [id number] : ? 1955 (Age: 60) ??F ?Collect [...] ??400 ?? KARYOTYPE: 46,XX[25] End of Report [facility] 06/23/2016 06/24/2016 Matthew Acevedo DO PATHOLOGY ORDER JODIE [facility] [address] [place] [address] * FLOW CYTOMETRY (06/23/2016 0:00 EST) Pathology Report: FLOW CYTOMETRY REPORT Reports generated via electronic interface contain original data; however they are lacking the format of the original report. Caution should be taken when reading/interpreting unformatted reports. Name: ? PURNIMA THACKER ? Accession #: ? [id number] : ? 1955 (Age: 60) ??F ?Collect Date: ? 06/23/2016 00:00 Location: ? [facility] ? Receive Date: ? 06/24/2016 08:00 Provider: ?MATTHEW ACEVEDO DO Copy to: ?WINTER HANKINS BITE BLOCK MAKER MARIO LABERTO RAMOS MD ? FINAL IMMUNOPHENOTYPIC INTERPRETATION: ? Bone marrow, flow cytometric analysis: -No immunophenotypic evidence of a clonal cell population. ??See comment. ? COMMENT: The results of flow cytometry show no immunophenotypic evidence of involvement by a clonal lymphoproliferative or myeloproliferative disorder. ??Correlation of these findings with morphologic and clinical data is essential. ??Please refer to pathology report number [id number] for morphologic details. ? Document reviewed and [...] the Department of Pathology and Laboratory Medicine, [place] ??It has not been cleared or [...] clinical laboratory testing. End of Report ?? [facility] 06/23/2016 06/24/2016 8:0 0 EST Matthew Acevedo DO PATHOLOGY ORDER JODIE [facility] [address] [place] [address] * BONE MARROW/HEMPATH CONSULT (06/23/2016 0:00 EST) Pathology Report: BONE MARROW REPORT Reports generated via electronic interface contain original data; however they are lacking the format of the original report. Caution should be taken when reading/interpreting unformatted reports. Name: ? PURNIMA THACKER ? Accession #: ? [id number] : ? 1955 (Age: 60) ??F ?Collect Date: ? 06/23/2016 Location: ? [facility] ? Receive Date: ? 06/24/2016 Provider: ? MATTHEW ACEVEDO DO Copy to: ?WINTER HANKINS BITE BLOCK MAKER MARIO ALBERTO RAMOS MD ? DIAGNOSIS: Peripheral [...] #1: Aggregate biopsy length: 8 mm with fire protection designer trabeculae of lamellar bone, cellular bone marrow, [...] SEE ABOVE DISCUSSION Lambda (polyclonal, Dako) ??(B1): Hooks (polyclonal, Dako) ??(B1): Biopsy (decalcified) #2: Aggregate biopsy length: 8 mm with fire protection designer trabeculae of lamellar bone, cellular bone marrow, [...] (M115, Leica) ??(B2): Lambda (polyclonal, Dako) ??(B2): Hooks (polyclonal, Dako) ??(B2): NOTE: ??One or more [...] ? 1% Blasts ?1% Special Studies Cytogenetics ([id number]): Pending. Flow Cytometry ([id number]): No immunophenotypic evidence of a clonal cell population. ? End of Report [facility] 06/23/2016 06/24/2016 Matthew Acevedo DO PATHOLOGY ORDER JODIE [facility] [address] [place] [address] documented in this encounter Visit Diagnoses Not on filedocumented in this encounter Care Teams Rn Wellness Relationship Specialty Start Date End Date Ashley Chavez ARNP [address] [place] [address] PCP - General 07/11/10 documented as of this encounter
--- OUTSIDE RECORDS SUMMARY | 2024-06-08 14:09 | XMS_ITS | Encounter Summary ---
Author Organization [facility] Address [address] [place] [address] Care Team Providers Care Special Education Itinerant Teacher Name Role Phone Ashley Chavez Primary Care Provider [phone] Encounter Details Date Type Department Care Team (Late st Contact Info) Description 12/17/2021 Lab Requisition [facility] Pathology & Laboratory Medicine - [address] [id number] Outr Resulting Lab, Provider Social History Tobacco [...] Lyme Ab Negative Negative 12/18/2021 10:37 EDT [facility] Blood VENOUS BLOOD / Unknown 12/17/2021 13:30 EDT 12/17/2021 21:32 EDT Provider Outr Resulting Lab IMMUNOLOGY A ND SEROLOGY ORDERABLES Performing Organization Address [facility] Co de Phone Number [facility] [address] [place] [address] * (ABNORMAL) ANTI NUCLEAR AB (FRANCISCO), IFA (12/17/2021 13:30 EDT) FRANCISCO Interpretation Positive(A) Negative 12/18/2021 16:06 EDT [facility] Comment: For titers greater [...] Pattern 1 1:1280 Speckled 12/18/2021 16:06 EDT [facility] Blood VENOUS BLOOD / Unknown 12/17/2021 13:30 EDT 12/17/2021 21:32 EDT Narrative [facility] - 12/18/2021 16:06 EDT Results were obtained with the INOVA NOVA Lite HEp-2 FRANCISCO Kit by indirect immunofluorescence. Provider Outr Resulting Lab IMMUNOLOGY A ND SEROLOGY ORDERABLES Performing Organization Address [facility] Co de Phone Number [facility] [address] [place] [address] documented in this encounter Visit Diagnoses Not on filedocumented in this encounter Care Teams Special Education Itinerant Teacher Relationship Specialty Start Date End Date Ashley Chavez ARNP [address] [place] [address] PCP - General 07/11/10 documented as of this encounter
--- OUTSIDE RECORDS SUMMARY | 2024-06-08 14:09 | XMS_ITS | Encounter Summary ---
Author Organization [facility] [place] [address] Care Team Providers Care Game Bird Farmer Name Role Phone Magdalena Acosta MD Primary Care Provider [phone] Encounter Details Date Type Department Care Team (Latest Contact Info) Description 06/05/2024 1:04 PM EST - 06/05/2024 3:08 PM EST Hospital Encounter [facility] [place] [address] Markel Borjas MD [facility] DR HEMATOLOGY [place] [address] Discharge Disposition: Home Social History Tobacco Use [...] 5pm or on a weekend: Call the [facility] bull chain operator at and ask for the physician insulation power unit tender covering for your doctor. Instructions following sedation [...] drainage occurs, please contact [place] [address] [email or web address] [facility] documented in this encounter Medications at [...] Verio test strips Strip USE DAILY 01/03/2022 [employer] Delica Plus Lancet 33 gauge Misc USE [...] Hematology [place] [address] Markel Borjas MD [facility] DR HEMATOLOGY [place] [address] 11/02/2024 12:00 PM EDT Appointment [place] [address] 11/02/2024 1:00 PM EDT Office [place] [phone] Magdalena Peralta MD [facility] [place] [address] 03/01/2025 4:15 PM EDT Office Visit Dermatology at [address] [place] [phone] Marek Bonilla MD [address] [place] [address], [place] [address] Pending Results Name Type Priority Associated Diagnoses [...] EST Diagnostic Bone Marrow Biopsies & Aspirations ([address]) 06/05/2024 2:03 PM EST Anemia, in pt [...] blasts is detected. 06/06/2024 2:08 PM EST [facility] Signing Pathologist This result has been reviewed by Georges Boucher MD on 06/06/24 at 2:08 PM. 06/06/2024 2:08 PM EST [facility] Interpretation CD19+ B-cells show [...] significant blast populations identified. 06/06/2024 2:08 PM [facility] Lymphocyte % 4.7 % 06/06/2024 2:08 PM [facility] Monocyte % 3.0 % 06/06/2024 2:08 PM [facility] Granulocyte % 76.0 % 06/06/2024 2:08 PM [facility] CD45 DIM % 0.9 % 06/06/2024 2:08 PM [facility] CD38 Bright/CD138+ 0.2 % 06/06/2024 2:08 PM [facility] CD3+ % 70.0 % 06/06/2024 2:08 PM [facility] CD19+ % 17.0 % 06/06/2024 2:08 PM [facility] CD56+ % 12.0 % 06/06/2024 2:08 PM [facility] B-Cell:T-Cell Ratio 0.2 06/06/2024 2:08 PM [facility] [place]:Lambda Ratio 1.8 06/06/2024 2:08 PM [facility] CD4:CD8 Ratio 1.6 06/06/2024 2:08 PM [facility] Specimen Processing Cells for immunophenotypic analysis were derived from bone marrow. The following markers were assessed: CD2, CD3, CD4, CD5, CD7, CD8, CD10, CD19, CD20, CD38, CD45, CD56, CD138, kappa light chain, (c)kappa light chain, lambda light chain, (c)lambda light chain,CD13, CD14, CD34, CD45, CD117, and HLA-DR. 06/06/2024 2:08 PM [facility] Disclaimer Flow analysis is an [...] clinical laboratory testing. 06/06/2024 2:08 PM EST [facility] Bone Marrow Non Blood Collection / Unknown 06/05/2024 2:22 PM EST 06/05/2024 3:07 PM EST Georges Boucher MD HEMATOLOGY ORDERABLE S Performing Organization Address City/[facility]/ZIP Co de Phone Number [facility] [place] [address] * BM HOLD CYTOGENETICS/FISH (06/05/2024 2:22 PM EST) Bone Marrow Non Blood Collection / Unknown 06/05/2024 2:22 PM EST 06/05/2024 3:07 PM EST Narrative [facility] - 06/06/2024 10:47 AM EST ~3ml Markel Borjas MD PATHOLOGY/CYTOLOGY ORDERABLES Performing Organization Address City/[facility]/ZIP Co de Phone Number [facility] [place] [address] * BM HOLD FLOW/MOLECULAR (06/05/2024 2:22 PM EST) Bone Marrow Non Blood Collection / Unknown 06/05/2024 2:22 PM EST 06/05/2024 3:07 PM EST Markel Borjas MD PATHOLOGY/CYTOLOGY ORDERABLES Performing Organization Address City/[facility]/ZIP Co de Phone Number [facility] [place] [address] * Bone Marrow (06/05/2024 2:22 PM EST) Case Report Bone Marrow Patholog y Report ?Case: [id number] ? Authorizing Provider: ??Markel Borjas, ?Collected: ? 06/05/2024 1422 ? Ordering Location: ? [facility] ??Received: ?06/05/2024 1508 ? [facility] ? Hospital ? Pathologist: ? Citlaly, Georges L, MD ? Specimens: ?? A) - Iliac Crest, Left ? B) - Iliac Crest, Left ? C) - Iliac Crest, Left ? 4 1:36 PM [facility] Final Diagnosis BONE MARROW (BLOOD FILM, ASPIRATE, TOUCH PREP, CORE & CLOT SECTIONS): 1. Normocellular bone marrow with maturing trilineage hematopoiesis. No overt dysplasia or increased blasts. 2. Ancillary studies pending. 4 1:36 PM [facility] Discussion The patient's histor y [...] integrated report to follow. 4 1:36 PM [facility] Additional Studies Task ID IHC/Special Stains Result B1-3 Myeloperoxidase Highlights granulocytic precursors. B1-4 CD34 Highlights rare blasts (<5% of cells) B1-5 CD117 Highlights rare mast cells. B1-6 E-Cadherin Highlights normal erythroid precursors. B1-7 CD61 Highlights normal megakaryocytes. 4 1:36 PM [facility] Clinical Information Anemia, in patient with presumed hx of benign neutropenia 4 1:36 PM [facility] Gross Description A. Iliac Crest, Left. Number of Lavender (EDTA) tubes: 3 Total Volume of Lavender (EDTA) tubes: 8 ml Number of Green (NaHep) tubes: 1 Total Volume of Green (NaHep) tubes: 3 ml Spicule/Clot Section submitted? Present Tube to Biorepository? Present Processed by: Abbie Barrow Collected off the [facility] by: N/A B. Iliac Crest, Left. [...] cassette labeled C1. CCP 4 1:36 PM [facility] Disclaimer(s) Formalin-fixed, paraffin-embedded tissue sections [...] and other diagnostic tests. 4 1:36 PM [facility] Bone Marrow Aspirate Adequacy: Smear/touch [...] present, no ring sideroblasts. 4 1:36 PM [facility] Bone Marrow Biopsy and/or Clot [...] bone normal for age. 1:36 PM EST [facility] Bone Marrow Differential Band/Seg 34%; Lymph 8%; Benton 0%; Eos 2%; Baso 1%; Metamyelocyte 13%; Myelocyte 9%; Promyelocyte 2%; Blast 1%; nRBC's 27%; Plasma cell 3% 1:36 PM [facility] Result Note Routine 1:36 PM [facility] Peripheral Blood Morphology RBCs: Mildly macrocytic anemia with rare target cells, ovalocytes. WBCs: Unremarkable. Platelets: Rare large platelet form present. 1:36 PM EST [facility] STRUCTURE OF LEFT ILIAC CREST / Unknown 06/05/2024 2:22 PM EST 06/05/2024 3:08 PM EST STRUCTURE OF LEFT ILIAC CREST / Unknown 06/05/2024 2:22 PM EST 06/05/2024 3:08 PM EST STRUCTURE OF LEFT ILIAC CREST / Unknown 06/05/2024 2:22 PM EST 06/05/2024 3:08 PM EST Markel Borjas MD PATHOLOGY/CYTOLOGY ORDERABLES [facility] [place] [address] * (ABNORMAL) CBC (with Diff) (06/05/2024 1:45 PM EST) White Blood Cell 3.06(L) 4.00 - 9.50 x10(3)/mc L 06/05/2024 2:38 PM EST [facility] Red Blood Cell 3.35(L) 4.00 - 5.21 x10(6)/mc L 06/05/2024 2:38 PM [facility] Hemoglobin 11.0(L) 11.7 - 15.5 g/dL 06/05/2024 2:38 PM [facility] Hematocrit 33.4(L) 35.7 - 45.8 % 06/05/2024 2:38 PM [facility] Mean Cell Volume 99.7(H) 82.6 - 94.4 fL 06/05/2024 2:38 PM [facility] Mean Cell Hemoglobin 32.8(H) 27.1 - 32.0 pg 06/05/2024 2:38 PM [facility] Mean Cell Hemoglobin Concentration 32.9 31.7 - 35.0 g/dL 06/05/2024 2:38 PM [facility] Platelet 151 145 - 357 x10(3)/mc L 06/05/2024 2:38 PM [facility] Mean Platelet Volume 8.9 7.6 - 12.9 fL 06/05/2024 2:38 PM [facility] RDW Standard Deviation 44.3 37.0 - 46.0 fL 06/05/2024 2:38 PM [facility] RDW coefficient of variation 12.0 11.5 - 14.1 % 06/05/2024 2:38 PM [facility] NRBC% auto 0.0 % 06/05/2024 2:38 PM [facility] NRBC Absolute <0.01 <0.01 x10(3)/mc L 06/05/2024 2:38 PM [facility] Neutrophil % 62.8 % 06/05/2024 2:38 PM [facility] Neutrophil Absolute (ANC) - Automated 1.92 1.70 - 6.10 x10(3)/mc L 06/05/2024 2:38 PM [facility] Lymph % 20.9 % 06/05/2024 2:38 PM [facility] Lymph Absolute 0.64(L) 0.90 - 3.20 x10(3)/mc L 06/05/2024 2:38 PM EST [facility] Monocyte % 15.0 % 06/05/2024 2:38 PM [facility] Monocyte Absolute 0.46 0.30 - 0.90 x10(3)/mc L 06/05/2024 2:38 PM EST [facility] Eos % 0.3 % 06/05/2024 2:38 PM [facility] Eos Absolute <0.04 0.00 - 0.40 x10(3)/mc L 06/05/2024 2:38 PM EST [facility] Basophil % 0.7 % 06/05/2024 2:38 PM [facility] Baso Absolute <0.04 0.00 - 0.10 x10(3)/mc L 06/05/2024 2:38 PM [facility] Immature Gran % 0.3 % 2:38 PM [facility] Immature Gran Absolute <0.04 0.00 - 0.04 x10(3)/mc L 06/05/2024 2:38 PM [facility] Blood VENOUS BLOOD SPECIMEN / Unknown Venipuncture / Unknown 06/05/2024 1:45 PM EST 06/05/2024 1:59 PM EST Markel Borjas MD HEMATOLOGY ORDERAB LES [facility] [place] [address] documented in this encounter Visit Diagnoses Not on filedocumented in this encounter Active and Recently Administered Medications Due to Daylight Saving Time, this section may contain times in both EDT and EST. PRN Medication Order 06/03/2024 06/04/2024 06/05/2024 fentaNYL (pf) (50 mcg/mL) multi-dose injection 25 mcg (CANCELED) 25 mcg, Intravenous, EVERY 5 MIN PRN, Starting on Mon 4/24 at 1307, Until Wed06/05/24 at 1521, Sedation, [...] RN) documented in this encounter Care Teams Game Bird Farmer Relationship Specialty Start Date End Date Magdalena Acosta MD [address] [place] [address] PCP - General Family Medicine 02/05/23 documented as of this encounter
--- OUTSIDE RECORDS SUMMARY | 2024-06-08 14:10 | XMS_ITS | Encounter Summary ---
Author Organization [facility] Address [facility] [place] [address] Care Team Providers Care Development Assistant Name Role Phone Magdalena Acosta MD Primary Care Provider [phone] Encounter Details Date Type Department Care Team [...] EST Office Visit Hematology [place] [address] Markel Borjas MD [facility] [address] [place] [address] 11/02/2024 12:00 PM EDT [place] [phone] 11/02/2024 1:00 PM EDT Office [place] [address] Magdalena Peralta MD [facility] [place] [address] 03/01/2025 4:15 PM EDT Office Visit Dermatology at [place] [address] [place] [phone] Marek Bonilla MD [address], [address] [place] [address] documented as of this encounter Visit Diagnoses Not on filedocumented in this encounter Care Teams Development Assistant Relationship Specialty Start Date End Date Magdalena Acosta MD [address] [place] [address] PCP - General Family Medicine 02/05/23 documented as of this encounter
--- OUTSIDE RECORDS SUMMARY | 2024-06-08 14:10 | XMS_ITS | Encounter Summary ---
Author Organization [facility] [place] [address] Care Team Providers Care Mushroom Picker Name Role Phone Magdalena Acosta MD Primary Care Provider [phone] Encounter Details Date Type Department Care Team (Late st Contact Info) Description 07/08/2023 10:15 AM EST Office Visit Cardiology at [address] [phone] Severe aortic stenosis Social History Tobacco Use [...] EST Office Visit Hematology [place] [address] Markel Borjas MD [facility] DR HEMATOLOGY [place] [address] 11/02/2024 12:00 PM EDT Appointment [place] [address] 11/02/2024 1:00 PM EDT Office [place] [address] Magdalena Peralta MD [facility] DR RHEUMATOLOGY DEPT [place], [place] [phone] 03/01/2025 4:15 PM EDT Office Visit Dermatology at [place] [address] [facility] [place] [phone] Marek Bonilla MD [address] [facility], [place] [address] documented as of this encounter Procedures Procedure [...] (Bezet) 449 ms MUSE SYSTEM Calculated P Gresham 66 degrees MUSE SYSTEM Calculated R Gresham 60 degrees MUSE SYSTEM Calculated T Gresham 53 degrees MUSE SYSTEM INTERPRETATION Normal sinus rhythm Minimal voltage criteria for LVH, may be normal variant ( Sokolow-Orozco ) ST & T wave abnormality, consider lateral ischemia ??vs. repolarization abnormality from LVH Abnormal ECG When compared with ECG of 13-MAY-2023 09:22, Premature ventricular complexes are no longer Present Minimal criteria for Septal infarct are no longer Present Confirmed by Maxx Best ([id number]) on 07/09/2023 10:07:22 AM MUSE SYSTEM 07/08/2023 10:2 7 AM EST 07/09/2023 10:07 AM EST Brody Kaplan APRN ECG ORDERABLES MUSE SYSTEM documented in this encounter Visit Diagnoses Diagnosis Severe aortic stenosis Aortic valve disorders documented in this encounter Care Teams Mushroom Picker Relationship Specialty Start Date End Date Magdalena Acosta MD [address] [place] [address] PCP - General Family Medicine 02/05/23 documented as of this encounter
--- OUTSIDE RECORDS SUMMARY | 2024-06-08 14:10 | XMS_ITS | Encounter Summary ---
Author Organization [place] [address] Care Team Providers Care Travel Cota Name Role Phone Magdalena Acosta MD Primary Care Provider [phone] Encounter Details Date Type Department Care Team (Late st Contact Info) Description 05/27/2023 Refill Cardiology at [address] [phone] Vero Marrero, RN Social History Tobacco Use [...] PM EDT TC to Nurse Sosa at [facility] to relay response from Jay [...] after that 75mg once daily. Jay Marrero new[facility]riter [facility] at [facility] [phone] * Telephone Encounter - Vero Marrero RN - 05/27/2023 1:46 PM EDT VM received from triage nurse Sosa at [facility] stating patient was seen today [...] more affordable option, if possible. Vero Marrero [facility]riter [facility] at [facility] [address] documented in this encounter Plan of Treatment Upcoming Encounters Date Type Department Care Team (Late st Contact Info) Description 06/23/2024 2:00 PM EST Office Visit Hematology and Oncology at [place] [phone] Markel Borjas MD [facility] [place] [address] 11/02/2024 12:00 PM EDT Appointment Pulmonology at [place] [phone] 11/02/2024 1:00 PM EDT Office Visit Rheumatology at [place] [phone] Magdalena Peralta MD [facility] DR [place] [address] 03/01/2025 4:15 PM EDT Office Visit Dermatology at [place] [address] [place] [phone] Marek Bonilla MD [address], [place] [address] documented as of this encounter Visit Diagnoses Diagnosis Aortic valve stenosis, etiology of cardiac valve disease unspecified documented in this encounter Care Teams Travel Cota Relationship Specialty Start Date End Date Magdalena Acosta MD [address] [place] [address] PCP - General Family Medicine 02/05/23 documented as of this encounter
--- OUTSIDE RECORDS SUMMARY | 2024-06-08 14:10 | XMS_ITS | Encounter Summary ---
Author Organization [facility] Address [facility] [place] [address] Care Team Providers Care Home Companion Name Role Phone Magdalena Acosta MD Primary Care Provider [phone] Encounter Details Date Type Department Care Team (Late st Contact Info) Description 07/29/2023 11:00 AM EST Office [place] [address] Magdalena Peralta MD [facility] [place] [address] Mixed connective tissue disease Social History Tobacco [...] 1:5120 speckled; VIC negative; Myositis panel with POSTAL SERVICE WINDOW CLERK ab 149.1 (positive); Anti U1RNP IgG 119; [...] Viramontes. Magdalena Peralta MD Rheumatology Fellow Pager: [phone] * Kia Viramontes DO - 07/29/2023 11:00 AM EST ATTENDING ADDENDUM The patient's history was reviewed, and I interviewed and examined the patient with Dr. Peralta I agree with her summary, findings, and plan. documented in this encounter Plan of Treatment Upcoming Encounters Date Type Department Care Team (Late st Contact Info) Description 06/23/2024 2:00 PM EST Office Visit H[place]ology [place] [address] Markel Borjas MD [facility] [address] [place] [address] 11/02/2024 12:00 PM EDT Appoint[place] [address] 11/02/2024 1:00 PM EDT Office [place] [address] Magdalena Peralta MD [facility] [place] [address] 03/01/2025 4:15 PM EDT Office Visit Dermatology at [place] [address] [facility] [place] [address] Marek Bonilla MD [address], [place] [address] documented as of this encounter Results * [...] PFT FEV1/FVC Pre-BD Z-Score 0 COMPAS PFT IZN16-00 Actual Pre-BD 2.41 % COMPAS PFT XJI70-84 Predicted 1.8 % COMPAS PFT FPK40-18 Pre-BD % of Predicted 134 % COMPAS PFT JFB31-86 Pre-BD Z-Score 0.81 COMPAS PFT DLCO Hb [...] documented in this encounter Care Teams Home Companion Relationship Specialty Start Date End Date Magdalena Acosta MD [address] [place] [address] PCP - General Family Medicine 02/05/23 documented as of this encounter
--- OUTSIDE RECORDS SUMMARY | 2024-06-08 14:10 | XMS_ITS | Encounter Summary ---
Author Organization [place] [address] Care Team Providers Care Machine Burrer Name Role Phone Magdalena Acosta MD Primary Care Provider Reason for Visit * Reason Comments Aortic Stenosis Coronary Artery Disease Hypertension Encounter Details Date Type Department Care Team (Latest Contact Info) Description 11/16/2023 11:40 AM EDT TH Visit (TeleHealth) Cardiology at [address] [address] Jay Maza PA [facility] [place] [address] Aortic valve stenosis, etiology of cardiac valve disease unspecified; Coronary artery disease, unspecified vessel or lesion type, unspecified whether angina present, unspecified whether king salmon or transplanted heart Social History Tobacco Use Types Packs/Day Years Used Date Smoking Tobacco: Never Smokeless Tobacco: Never Alcohol Use Standard Drinks/Week Comments No 0 (1 standard drink = 0.6 oz pur e alcohol) none ON LICENSE OF [facility] Inpatient Questions Answer Date [...] the original note were not included. [facility] Interventional Cardiology CARDIOLOGY TELE VISIT NOTE 11/16/23 Patient: Purnima Thacker Prior to the initiation of our discussion, the risks and benefits of tele health visits were discussed, and the patient consented verbally to this being a virtual telehealth visit in lieu of an in person office visit. CARDIOLOGISTS: Antelmo Sharma MD ([facility]) Maria Luz Mejia MD ([facility] - [facility]) Problem List: Aortic valve stenosis: prior [...] fraction I35.0 Mild coronary artery disease by [facility] 11/09/2022 I25.10 Heart failure with reduced [...] notable for coronary artery protection given low hipeo-dq-muoqifve distance. There was no obstruction post Valve [...] a very reassuring recent echo in [facility], in scanned docs. LVEF 55%. Valve [...] leads Confirmed by MD Harshil, Haris Bell ([id number]) on 05/10/2023 8:11:46 AM Cardiac Cath 11/09/2022 [...] in one year. EKATERINA Thompson Time spent: 0069ZDL2 0-5min 3295RCP1 6-10min 4624RBD0 11-15min x 5168WSD0 16-20min 3491WED0 21-30min 8445HUV5 31-40min 4454VDE5 40+ min Jay Maza PA-C Interventional Cardiology [facility] Pager [phone] documented in this encounter Plan of Treatment Upcoming Encounters Date Type Department Care Team (Late st Contact Info) Description 06/23/2024 2:00 PM EST Office Visit Hematology [place] [address] Markel Borjas MD [facility] [address] HEMATOLOGY [place] [address] 11/02/2024 12:00 PM EDT Appointment Pulmonology at [place] [address] 11/02/2024 1:00 PM EDT Office Visit Rheumatology at [address] Magdalena Peralta MD [facility] [place] [address] 03/01/2025 4:15 PM EDT Office Visit Dermatology at [place] [address] [facility] [address] Marek Bonilla MD [address], [place] [address] documented as of this encounter Visit Diagnoses Diagnosis Aortic valve stenosis, etiology of cardiac valve disease unspecified Coronary artery disease, unspecified vessel or lesion type, unspecified whether angina present, unspecified whether king salmon or transplanted heart documented in this encounter Care Teams Machine Burrer Relationship Specialty Start Date End Date Magdalnea Acosta MD [address] [place] [address] PCP - General Family Medicine 02/05/23 documented as of this encounter
--- OUTSIDE RECORDS SUMMARY | 2024-06-08 14:10 | XMS_ITS | Encounter Summary ---
Author Organization [facility] Address [facility] [place] [address] Care Team Providers Care Track Laying Supervisor Name Role Phone Magdalena Acosta MD Primary Care Provider [phone] Encounter Details Date Type Department Care Team [...] EST Office Visit Hematology and [place] [address] Markel Borjas MD [facility] [address] [place] [address] 11/02/2024 12:00 PM EDT Appointment Pulmonology [place] [address] 11/02/2024 1:00 PM EDT Office Visit Rheumatology [place] [address] Magdalena Peralta MD [facility] [place] [address] 03/01/2025 4:15 PM EDT Office Visit Dermatology at [place] [address] [facility] [place] [address] Marek Bonilla MD [address], [address] [place] [address] documented as of this encounter Visit Diagnoses Not on filedocumented in this encounter Care Teams Track Laying Supervisor Relationship Specialty Start Date End Date Magdalena Acosta MD [address] [place] [address] PCP - General Family Medicine 02/05/23 documented as of this encounter
--- OUTSIDE RECORDS SUMMARY | 2024-06-08 14:10 | XMS_ITS | Encounter Summary ---
[place] [address] Care Team Providers Care [employer] Assistant Manager Name Role Phone Magdalena Acosta MD Primary Care Provider [phone] Encounter Details Date Type Department Care Team (Latest Contact Info) Description 10/05/2023 10:52 AM EST - 10/05/2023 11:59 PM [facility] Hospital En[place] [address] Mixed connective tissue disease Discharge Disposition: Home [...] topically 2 times daily as needed. 10/22/2022 [employer] Verio test strips Strip USE DAILY 01/03/2022 [employer] Delica Plus Lancet 33 gauge Misc [...] EST Office Visit Hematology [place] [address] Markel Borjas MD [facility] [address] HEMATOLOGY [place] [address] 11/02/2024 12:00 PM EDT Appointment [place] [address] 11/02/2024 1:00 PM EDT Office [place] [address] Magdalena Peralta MD [facility] [place] [address] 03/01/2025 4:15 PM EDT Office Visit Dermatology at [place] [address] [place] [address] Marek Bonilla MD [address], [place] [address] documented as of this encounter Procedures Procedure [...] PFT FEV1/FVC Pre-BD Z-Score 0 COMPAS PFT NSC44-85 Actual Pre-BD 2.41 % COMPAS PFT IYS51-46 Predicted 1.8 % COMPAS PFT SUM42-95 Pre-BD % of Predicted 134 % COMPAS PFT YEW59-31 Pre-BD Z-Score 0.81 COMPAS PFT DLCO Hb [...] tissue documented in this encounter Care Teams [employer] Assistant Manager Relationship Specialty Start Date End Date Magdalena Acosta MD [address] [place] [address] PCP - General Family Medicine 02/05/23 documented as of this encounter
--- OUTSIDE RECORDS SUMMARY | 2024-06-08 14:10 | XMS_ITS | Encounter Summary ---
Author Organization [facility] Address [facility] [place] [address] Care Team Providers Care Silviculturist Name Role Phone Magdalena Acosta MD Primary Care Provider [phone] Encounter Details Date Type Department Care Team [...] EST Office Visit Hematology [place] [address] Markel Borjas MD [facility] [address] [place] [address] 11/02/2024 12:00 PM EDT Appointment [place] [address] 11/02/2024 1:00 PM EDT Office [place] [address] Magdalena Peralta MD [facility] [place] [address] 03/01/2025 4:15 PM EDT Office Visit Dermatology at [place] [address] [facility] [place] [address] Marek Bonilla MD [address], [address] Katherine [place] [address] documented as of this encounter Visit Diagnoses Not on filedocumented in this encounter Care Teams Silviculturist Relationship Specialty Start Date End Date Magdalena Acosta MD [address] [place] [address] PCP - General Family Medicine 02/05/23 documented as of this encounter
--- OUTSIDE RECORDS SUMMARY | 2024-06-08 14:10 | XMS_ITS | Encounter Summary ---
Author Organization [facility] [place] [address] Care Team Providers Care Automation Technologist Name Role Phone Magdalena Acosta MD Primary Care Provider [phone] Reason for Referral * Diagnostic Test (Routine) - Closed Specialty Diagnoses / Procedures Referred By Contac t Referred To Contact Cardiology Diagnoses S/P TAVR (transcatheter aortic valve replacement) Procedures Echocardiogram Transthoracic Vinod Juárez PA [facility] [place] [address] [facility] [place] [address] Referral ID Status Reason Start Date Expiration Date V isits Requested Visits Authorized [id number] Closed Specialty Service Requested 05/22/2023 05/21/2024 1 1 Reason for Visit * Diagnostic Test (Routine) - Closed Specialty Diagnoses / Procedures Referred By Contac t Referred To Contact Cardiology Diagnoses S/P TAVR (transcatheter aortic valve replacement) Procedures Echocardiogram Transthoracic Vinod Juárez PA [facility] [place] [address] [facility] [place] [address] Referral ID Status Reason Start Date Expiration Date V isits Requested Visits Authorized [id number] Closed Specialty Service Requested 05/22/2023 05/21/2024 1 1 Encounter Details Date Type Department Care Team (Latest Contact Info) Description 07/08/2023 10:19 AM EST - 07/08/2023 11:59 PM EST Hospital Encounter Non-Invasive [place] [address] Alirio Esparza MD S/P TAVR (transcatheter aortic [...] EST Office Visit Hematology [place] [address] Markel Borjas MD [facility] [address] [place] [address] 11/02/2024 12:00 PM EDT Appointment [place] [address] 11/02/2024 1:00 PM EDT Office [place] [address] Magdalena Peralta MD [facility] [place] [address] 03/01/2025 4:15 PM EDT Office Visit Dermatology at [place] [address] [facility] [place] [address] Marek Bonilla MD [address], [place] [address] documented as of this encounter Procedures Procedure [...] EST Narrative 07/08/2023 12:26 PM EST 1 [place] [address] ? Echocardiogram Report Name: KIRSTIE, ONESIMO M ?Study Date: 07/08/2023 10:31 AMBP: 118/60 mmHg ? Patient Location: 4A : 1955 ? Height: 155 cm ? Account: [id number] Age: 67 yrs ? Weight: 74 kg Gender: Female ?BSA: 1.7 m2 Ordering Physician: ALIRIO ESPARZA Referring Physician: VINOD JUÁREZ Performed By: Felicia Norris RDCS Reason For Study: S/P TAVR Exam Location: [facility]. Interpretation Summary Left ventricular systolic [...] no significant change (post-procedure). Procedure Limited - 03586. Doppler - 73445. Color Doppler - 04663. Satisfactory quality. This study is limited because [...] Note Lee Kincaid MD - 07/08/2023 1 [place] [address] Echocardiogram Report Name: ONESIMO THACKER Study Date: 0:31 AMBP: 118/60 mmHg Patient Location: : 1955 Height: 155 cm Account: [id number] Age: 67 yrs Weight: 74 kg Gender: Female BSA: 1.7 m2 Ordering Physician: ALIRIO ESPARZA Referring Physician: VINOD JUÁREZ Performed By: Felicia Norris RDCS Reason For Study: S/P TAVR Exam Location: [facility]. Interpretation Summary Left ventricular systolic [...] is nosignificant change (post-procedure). Procedure Limited - 26797. Doppler - 10245. Color Doppler - 19440. Satisfactoryquality. This study is limited because of [...] replacement) documented in this encounter Care Teams Automation Technologist Relationship Specialty Start Date End Date Magdalena Acosta MD [address] [place] [address] PCP - General Family Medicine 02/05/23 documented as of this encounter
--- OUTSIDE RECORDS SUMMARY | 2024-06-08 14:10 | XMS_ITS | Encounter Summary ---
Author Organization Counts Include [facility] Address [facility] [place] [address] Care Team Providers Care Periodontal Assistant Name Role Phone Magdalena Acosta MD Primary Care Provider [phone] Encounter Details Date Type Department Care Team [...] EST Office Visit Hematology [place] [address] Markel Borjas MD [facility] [address] [place] [address] 11/02/2024 12:00 PM EDT Appointment [place] [address] 11/02/2024 1:00 PM EDT Office [place] [address] Magdalena Peralta MD [facility] [place] [address] 03/01/2025 4:15 PM EDT Office Visit Dermatology at [place] [address] [facility] [place] [address] Marek Bonilla MD [address], [address] [place] [address] documented as of this encounter Visit Diagnoses Not on filedocumented in this encounter Care Teams Periodontal Assistant Relationship Specialty Start Date End Date Magdalena Acosta MD [address] [place] [address] PCP - General Family Medicine 02/05/23 documented as of this encounter
--- OUTSIDE RECORDS SUMMARY | 2024-06-08 14:10 | XMS_ITS | Encounter Summary ---
Author Organization [facility] Address [facility] [place] [address] Care Team Providers Care Climatology Professor Name Role Phone Magdalena Acosta MD Primary Care Provider [phone] Encounter Details Date Type Department Care Team (Latest Contact Info) Description 05/12/2024 9:00 AM EDT Laboratory Appointment Lab at [facility] Hematology Oncology [address] [place] [address] S/P TAVR (transcatheter aortic valve replacement); Chronic [...] Visit Hematology [place] [address] Markel Borjas MD [facility] [address] HEMATOLOGY [place] [address] 11/02/2024 12:00 PM EDT Appointment [place] [address] 11/02/2024 1:00 PM EDT Office [place] [address] Magdalena Peralta MD [facility] [address] RHEUMATOLOGY DEPT [place], [place] [address] 03/01/2025 4:15 PM EDT Office Visit Dermatology at [place] [address] [place] [address] Marek Bonilla MD [address], [place] [address] documented as of this encounter Procedures Procedure [...] - 2.50 % 05/12/2024 9:[address] [facility] Retic Abs # 0.0397 0.0200 - 0.1100 x10(6)/mcL 05/12/2024 9:[address] [facility] Immature Retic% 8.1 0.5 - 13.8 % 05/12/2024 9:[address] [facility] Reticulated Hgb 35.2 29.8 - 39.4 pg 05/12/2024 9:32 AM EDT [facility] Blood VENOUS BLOOD SPECIMEN / Unknown Venipuncture / Unknown 05/12/2024 8:56 AM EDT 05/12/2024 8:56 AM EDT Tova Russell STUDENT SPECIALIST HEMATOLOGY ORDERABL ES [facility] [place] [address] * (ABNORMAL) Comprehensive metabolic panel Non-fasting (05/12/2024 8:56 AM EDT) Glucose 86 65 - 199 mg/dL [facility]2024 [facility] Comment:Glucose Concentratio n >=200 mg/dL plus symptoms is consistent with Diabetes Mellitus. Blood Urea Nitrogen 20(H) 8 - 18 mg/dL 05/12/2024 11:36 AM [facility] Creatinine 0.88 0.70 - 1.20 mg/dL 05/12/2024 11:36 AM [facility] Sodium 145 135 - 145 mMol/L 05/12/2024 11:36 AM [facility] Potassium 4.6 3.5 - 5.0 mMol/L 05/12/2024 11:36 AM [facility] Chloride 109(H) 98 - 107 mMol/L 05/12/2024 11:36 AM [facility] Carbon Dioxide 21(L) 22 - 31 mMol/L 05/12/2024 11:36 AM [facility] Anion Gap 15 5 - 15 mMol/L 05/12/2024 11:36 AM [facility] Comment:Not Calculated. Calcium 9.9 8.5 - 10.5 mg/dL 05/12/2024 11:36 AM [facility] Protein, Total 7.3 6.1 - 8.0 g/dL 05/12/2024 11:36 AM [facility] Albumin 4.5 3.2 - 5.2 g/dL 05/12/2024 11:[address] [facility] Aspartate Aminotransferase 24 <=30 unit/L 05/12/2024 11:36 AM [facility] Alanine Aminotransferase 14 0 - 30 unit/L 05/12/2024 11:36 AM [facility] Alkaline Phosphatase 98 35 - 105 unit/L 05/12/2024 11:36 AM [facility] Bilirubin, Total 0.2 <=1.3 mg/dL 05/12/2024 11:36 AM [facility] Est Glomerular Filtration Rate - Female 72 mL/min/1. 73 m?? 05/12/2024 11:36 AM [facility] Comment: This patient's estimated GFR was [...] Fasting Status No 05/12/2024 11:[address] [facility] Blood VENOUS BLOOD SPECIMEN / Unknown Venipuncture / Unknown 05/12/2024 8:56 AM EDT 05/12/2024 8:56 AM EDT Tova Russell STUDENT SPECIALIST CHEMISTRY ORDERABLE S [facility] [place] [address] * (ABNORMAL) CBC (with Diff) (05/12/2024 8:56 AM EDT) White Blood Cell 3.47(L) 4.00 - 9.50 x10(3)/mc L 05/12/2024 9:[address] [facility] Red Blood Cell 3.31(L) 4.00 - 5.21 x10(6)/mc L 05/12/2024 9:32 AM [facility] Hemoglobin 11.1(L) 11.7 - 15.5 g/dL 05/12/2024 9:32 AM [facility] Hematocrit 33.2(L) 35.7 - 45.8 % 05/12/2024 9:32 AM [facility] Mean Cell Volume 100.3(H) 82.6 - 94.4 fL 05/12/2024 9:32 AM [facility] Mean Cell Hemoglobin 33.5(H) 27.1 - 32.0 pg 05/12/2024 9:32 AM [facility] Mean Cell Hemoglobin Concentration 33.4 31.7 - 35.0 g/dL 05/12/2024 9:32 AM [facility] Platelet 142(L) 145 - 357 x10(3)/mc L 05/12/2024 9:32 AM [facility] Mean Platelet Volume 8.7 7.6 - 12.9 fL 05/12/2024 9:32 AM [facility] RDW Standard Deviation 44.4 37.0 - 46.0 fL 05/12/2024 9:32 AM [facility] RDW coefficient of variation 12.0 11.5 - 14.1 % 05/12/2024 9:32 AM [facility] NRBC% auto 0.0 % 05/12/2024 9:32 AM [facility] NRBC Absolute <0.01 <0.01 x10(3)/mc L 05/12/2024 9:32 AM [facility] Neutrophil % 69.7 % 05/12/2024 9:32 AM [facility] Neutrophil Absolute (ANC) - Automated 2.42 1.70 - 6.10 x10(3)/mc L 05/12/2024 9:32 AM [facility] Lymph % 16.7 % 05/12/2024 9:[address] [facility] Lymph Absolute 0.58(L) 0.90 - 3.20 x10(3)/mc L 05/12/2024 9:[address] [facility] Monocyte % 12.1 % 05/12/2024 9:[address] [facility] Monocyte Absolute 0.42 0.30 - 0.90 x10(3)/mc L 05/12/2024 9:[address] [facility] Eos % 0.6 % 05/12/2024 9:[address] [facility] Eos Absolute <0.04 0.00 - 0.40 x10(3)/mc L 05/12/2024 9:[address] [facility] Basophil % 0.6 % 05/12/2024 9:[address] [facility] Baso Absolute <0.04 0.00 - 0.10 x10(3)/mc L 05/12/2024 9:[address] [facility] Immature Gran % 0.3 % 9:[address] [facility] Immature Gran Absolute <0.04 0.00 - 0.04 x10(3)/mc L 05/12/2024 9:[address] [facility] Blood VENOUS BLOOD SPECIMEN / Unknown Venipuncture / Unknown 05/12/2024 8:56 AM EDT 05/12/2024 8:56 AM EDT Tova Russell STUDENT SPECIALIST HEMATOLOGY ORDERABL ES [facility] [place] [address] documented in this encounter Visit Diagnoses Diagnosis S/P TAVR (transcatheter aortic valve replacement) Chronic idiopathic neutropenia Other neutropenia documented in this encounter Care Teams Climatology Professor Relationship Specialty Start Date End Date Magdalena Acosta MD [address] [place] [address] PCP - General Family Medicine 02/05/23 documented as of this encounter
--- OUTSIDE RECORDS SUMMARY | 2024-06-08 14:10 | XMS_ITS | Encounter Summary ---
Author Organization [facility] Address [facility] [place] [address] Care Team Providers Care Materials Planner Name Role Phone Magdalena Acosta MD Primary Care Provider [phone] Encounter Details Date Type Department Care Team [...] EST Office Visit [place] [address] Markel Borjas MD [facility] DR H[place] [address] 11/02/2024 12:00 PM EDT [place] [address] 11/02/2024 1:00 PM EDT Office [place] [address] Magdalena Peralta MD [facility] [place] [address] 03/01/2025 4:15 PM EDT Office Visit Dermatology at [place] [address] [facility] [place] [phone] Marek Bonilla MD [address] [address] [facility] [address] Katherine [place] [address] documented as of this encounter Visit Diagnoses Not on filedocumented in this encounter Care Teams Materials Planner Relationship Specialty Start Date End Date Magdalena Acosta MD [address] [place] [address] PCP - General Family Medicine 02/05/23 documented as of this encounter
--- OUTSIDE RECORDS SUMMARY | 2024-06-08 14:10 | XMS_ITS | Encounter Summary ---
[place] [address] Care Team Providers Care Technician'S Helper Name Role Phone Magdalena Acosta MD Primary Care Provider [phone] Reason for Visit * Reason Onset Date Comments Pre Procedure Call 03/01/2024 DAPT hold for EGD and colo? Encounter Details Date Type Department Care Team (Late st Contact Info) Description 03/01/2024 Telephone Cardiology at [address] [phone] Cynthia Monsalve RN Pre Procedure Call (DAPT [...] safe. Jay Message above left with Yenifer (heating and ventilating worker), who would be leaving this note in patient's chart for providers to schedule patient. No further questions or needs at this time. This nurse stated, note will be placed regarding this call in our chart for patient. Kezia Whitney RN, BSN Ambulatory Cardiology Clinic, [facility] [phone] * Telephone Encounter - Cynthia Monsalve RN - 03/01/2024 2:09 PM EDT Nurse Veronica from [facility] called, requesting a hold on ASA and/or Plavix for the patient's anticipated EGD and colonoscopy. -Cynthia Monsalve RN documented in this encounter Plan of Treatment Upcoming Encounters Date Type Department Care Team (Late st Contact Info) Description 06/23/2024 2:00 PM EST Office Visit Hematology [place] [phone] Markel Borjas MD [facility] [address] [place] [address] 11/02/2024 12:00 PM EDT Appointment [place] [address] 11/02/2024 1:00 PM EDT Office [place] [address] Magdalena Peralta MD [facility] [address] 03/01/2025 4:15 PM EDT Office Visit Dermatology at [address] [place] [address] Marek Bonilla MD [address] [place] [address] documented as of this encounter Visit Diagnoses Not on filedocumented in this encounter Care Teams Technician'S Helper Relationship Specialty Start Date End Date Magdalena Acosta MD [address] [place] [address] PCP - General Family Medicine 02/05/23 documented as of this encounter
--- OUTSIDE RECORDS SUMMARY | 2024-06-08 14:10 | XMS_ITS | Encounter Summary ---
Author Organization [facility] Address [facility] [place] [address] Care Team Providers Care Plant Sciences Professor Name Role Phone Magdalena Acosta MD Primary Care Provider [phone] Encounter Details Date Type Department Care Team [...] EST Office Visit Hematology [place] [address] Markel Borjas MD [facility] [address] HEMATOLOGY [place] [address] 11/02/2024 12:00 PM EDT Appointment [place] [address] 11/02/2024 1:00 PM EDT Office [place] [address] Magdalena Peralta MD [facility] DR RHEUM[place] [address] 03/01/2025 4:15 PM EDT Office Visit Dermatology at [place] [address] [facility] [place] [address] Marek Bonilla MD [address] [facility] [address] [place] [address] documented as of this encounter Visit Diagnoses Not on filedocumented in this encounter Care Teams Plant Sciences Professor Relationship Specialty Start Date End Date Magdalena Acosta MD [address] [place] [address] PCP - General Family Medicine 02/05/23 documented as of this encounter
--- OUTSIDE RECORDS SUMMARY | 2024-06-08 14:10 | XMS_ITS | Encounter Summary ---
Author Organization [facility] Address [facility] [place] [address] Care Team Providers Care Fried Cake Maker Name Role Phone Magdalena Acosta MD Primary Care Provider [phone] Encounter Details Date Type Department Care Team [...] EST Office Visit Hematology [place] [address] Markel Borjas MD [facility] DR HEMATOLOGY [place] [address] 11/02/2024 12:00 PM EDT Appointment [place] [address] 11/02/2024 1:00 PM EDT Office [place] [address] Magdalena Peralta MD [facility] [place] [address] 03/01/2025 4:15 PM EDT Office Visit Dermatology at [place] [address] [facility] [place] [address] Marek Bonilla MD [address], [place] Katherine [place] [address] documented as of this encounter Visit Diagnoses Not on filedocumented in this encounter Care Teams Fried Cake Maker Relationship Specialty Start Date End Date Magdalena Acosta MD [address] [place] [address] PCP - General Family Medicine 02/05/23 documented as of this encounter
--- OUTSIDE RECORDS SUMMARY | 2024-06-08 14:10 | XMS_ITS | Encounter Summary ---
Author Organization [facility] [place] [address] Care Team Providers Care Group Director Name Role Phone Magdalena Acosta MD Primary Care Provider Encounter Details Date Type Department Care Team (Late st Contact Info) Description 12/02/2023 11:15 AM EDT Office [place] [address] Magdalena Peralta MD [facility] DR [place] [address] Mixed connective tissue disease Social History Tobacco [...] 1:5120 speckled; VIC negative; Myositis panel with PRINTED PRODUCTS ASSEMBLER ab 149.1 (positive); Anti U1RNP IgG [...] list of questions that she sent via [facility] ahead of her visit, which we [...] exposure. She has an appointment with her Respiratory Care Program Director scheduled in January. (Dr Bonilla in [place]) ROS (positives in bold): Gen: no fevers, [...] but I encouraged her to contact her Respiratory Care Program Director to see if she could have [...] Dr. Tanisha Peralta MD Rheumatology Fellow Pager: [phone] * Federico Yee MD - 12/02/2023 11:15 [...] EST Office Visit Hematology and Oncology at [place] [phone] Markel Borjas MD [facility] DR HEMATOLOG[place] [address] 11/02/2024 12:00 PM EDT Appointment Pulmonology at [place] [address] 11/02/2024 1:00 PM EDT Office Visit Rheumatology at [place] [address] Magdalena Peralta MD [facility] [place] [address] 03/01/2025 4:15 PM EDT Office Visit Dermatology at [place] [address] [facility] [place] [address] Marek Bonilla MD [address] [facility] [address] Scheduled Orders Name Type Priority Associated Diagnoses Orde r Schedule EKG 12 Lead ECG Routine Mixed connective tissue disease Expected: 12/02/2023, Expires: 06/03/2024 documented as of this encounter Visit Diagnoses Diagnosis Mixed connective tissue disease Other specified diffuse disease of connective tissue documented in this encounter Care Teams Group Director Relationship Specialty Start Date End Date Magdalena Acosta MD [address] [place] [address] PCP - General Family Medicine 02/05/23 documented as of this encounter
--- OUTSIDE RECORDS SUMMARY | 2024-06-08 14:10 | XMS_ITS | Encounter Summary ---
Author Organization [facility] Address [facility] [place] [address] Care Team Providers Care Sales Service Executive Name Role Phone Magdalena Acosta MD Primary Care Provider [phone] Encounter Details Date Type Department Care Team (Latest Contact Info) Description 07/08/2023 12:35 PM EST Laboratory Appointment Lab 3L [place] [address] S/P TAVR (transcatheter aortic valve [...] EST Office Visit Hematology [place] [address] Markel Borjas MD [facility] DR HEMATOLOGY [place] [address] 11/02/2024 12:00 PM EDT Appointment [place] [address] 11/02/2024 1:00 PM EDT Office [place] [address] Magdalena Peralta MD [facility] [place] [address] 03/01/2025 4:15 PM EDT Office Visit Dermatology at [place] [address] [place] [address] Marek Bonilla MD [address], [place] Katherine [place] [address] documented as of this encounter Procedures Procedure [...] 11:56 AM EST) Neutrophil % 73.2 % [facility] Neutrophil Absolute 3.40 1.70 - 6.10 x10(3)/mc L [facility] Lymph % 16.1 % [facility] Lymphocytes Abs 0.8(L) 0.9 - 3.2 x10(3)/mc L [facility] Monocyte % 9.7 % [facility] Monocyte Abs 0.4 0.3 - 0.9 x10(3)/mc L [facility] Eos % 0.4 % [facility] Eosinophils Abs 0.0 0.0 - 0.4 x10(3)/mc L [facility] Basophil % 0.4 % [facility] Baso Absolute 0.0 0.0 - 0.1 x10(3)/mc L [facility] Immature Gran % 0.20 % [facility] Comment: Immature granulocytes(IG's)percentage and absolute count will include metamyelocytes, myelocytes, and promyelocytes. Blood smears from CBCs yielding IG's will be scanned manually for concordance. If this scan disagrees with the automated IG or if promyelocytes are noted, a manual differential will be performed. Immature Gran Absolute 0.01 0.00 - 0.04 x10(3)/ L [facility] Blood 07/08/2023 11:5 6 AM EST 07/08/2023 12:02 PM EST Narrative Resulting Agency Comment Spec In Lab Minh [facility]ATOLOG[facility] ORDERABLE S Performing Organization Address City/State/[facility] Co de Phone Number [facility] [place] [address] * (ABNORMAL) Hemogram (07/08/2023 11:56 AM EST) White Blood Cell 4.6 4.0 - 9.5 x10(3)/ L [facility] Red Blood Cell 3.34(L) 4.00 - 5.21 x10(6)/mc L [facility] Hemoglobin 11.0(L) 11.7 - 15.5 g/dL [facility] Hematocrit 33.2(L) 35.7 - 45.8 % [facility] Mean Cell Volume 99.4(H) 82.6 - 94.4 fL [facility] Mean Cell Hemoglobin 32.9(H) 27.1 - 32.0 pg [facility] Mean Cell Hemoglobin Concentration 33.1 31.7 - 35.0 g/dL [facility] Platelet 166 145 - 357 x10(3)/mc L [facility] RDW Standard Deviation 47.1(H) 37.0 - 46.0 fL [facility] RDW coefficient of variation 13.0 11.5 - 14.1 % [facility] Mean Platelet Volume 9.0 7.6 - 12.9 fL [facility] NRBC% auto 0.0 % [facility] NRBC Absolute 0.000 0.000 - 0.000 x10(3)/mc L [facility] Blood 07/08/2023 11:5 6 AM EST 07/08/2023 12:02 PM EST Narrative Resulting Agency Comment Spec In Lab [facility]EMATOLOG[facility] ORDERABLE S [facility] [place] [address] * (ABNORMAL) Comprehensive metabolic panel (non-fasting) (07/08/2023 11:56 AM EST) Glucose 93 65 - 199 mg/dL [facility] Comment:Diabetes: >=200 mg/d L plus symptoms Blood Urea Nitrogen 19(H) 8 - 18 mg/dL [facility] Creatinine 0.81 0.70 - 1.20 mg/dL [facility] Sodium 142 135 - 145 mmol/L [facility] Potassium 3.8 3.5 - 5.0 mmol/L [facility] Comment: Please note: ??Patients with WBC >100,000 may have falsely elevated Potassium levels. ??For accurate Potassium quantification in these patients send serum separator tube (gold top) for subsequent determinations. ??Contact the Clinical Chemistry Laboratory if there are any questions. Chloride 104 98 - 107 mmol/L [facility] Carbon Dioxide 26 22 - 31 mmol/L [facility] Anion Gap 12 5 - 15 mmol/L [facility] Calcium 10.2 8.5 - 10.5 mg/dL [facility] Protein, Total 7.4 6.1 - 8.0 g/dL [facility] Albumin 4.1 3.2 - 5.2 g/dL [facility] Aspartate Aminotransferase 24 0 - 30 unit/L [facility] Alanine Aminotransferase 12 0 - 30 unit/L [facility] Alkaline Phosphatase 93 35 - 105 unit/L [facility] Bilirubin, Total 0.3 0.2 - 1.3 mg/dL [facility] Est Glomerular Filtration Rate 80 >=60 mL/min/1. 73 m?? [facility] Comment: This patient's estimated [...] City/State/[facility] Co de Phone Number [facility] [place] [address] documented in this encounter Visit Diagnoses Diagnosis S/P TAVR (transcatheter aortic valve replacement) Severe aortic stenosis Aortic valve disorders documented in this encounter Care Teams Sales Service Executive Relationship Specialty Start Date End Date Magdalena Acosta MD [address] [place] [address] PCP - General Family Medicine 02/05/23 documented as of this encounter
--- OUTSIDE RECORDS SUMMARY | 2024-06-08 14:10 | XMS_ITS | Encounter Summary ---
Author Organization [facility] [place] [address] Care Team Providers Care Hooker Inspector Name Role Phone Magdalena Acosta MD Primary Care Provider [phone] Reason for Referral * Diagnostic Test (Routine) - New Request Specialty Diagnoses / Procedures Referred By Contac t Referred To Contact Cardiology Diagnoses S/P TAVR (transcatheter aortic valve replacement) Procedures Echocardiogram Transthoracic Antelmo Sharma MD [facility] [address] [facility] [place] [address] Referral ID Status Reason Start Date Expiration Date Visits Requested Visits Authorized [id number] New Request Specialty Service Requested 12/16/2023 12/15/2024 1 1 Encounter Details Date Type Department Care Team (Late st Contact Info) Description 12/16/2023 Orders Only Cardiology at [address] [address] Antelmo Sharma MD [facility] [address] S/P TAVR (transcatheter aortic valve [...] EST Office Visit Hematology and Oncology at [place] [phone] Markel Borjas MD [facility] DR HEMATOLOGY [place] [address] 11/02/2024 12:00 PM EDT Appointment Pulmonology at [place] [address] 11/02/2024 1:00 PM EDT Office Visit Rheumatology at [place] [address] Magdalena Peralta MD [facility] DR [place] [address] 03/01/2025 4:15 PM EDT Office Visit Dermatology at [place] [address] [facility] [place] [address] Marek Bonilla MD [address] [facility], [place] [address] Scheduled Orders Name Type Priority Associated Diagnoses Order Schedule Echocardiogram Transthoracic Echocardiography Routine S/P TAVR (transcatheter aortic valve replacement) Expected: 12/16/2023 (Approximate), Expires: 06/17/2024 EKG 12 Lead ECG Routine S/P TAVR (transcatheter aortic valve replacement) Expected: 12/16/2023 (Approximate), Expires: 06/17/2024 documented as of this encounter Visit Diagnoses Diagnosis S/P TAVR (transcatheter aortic valve replacement) documented in this encounter Care Teams Hooker Inspector Relationship Specialty Start Date End Date Magdalena Acosta MD [address] [place] [address] PCP - General Family Medicine 02/05/23 documented as of this encounter
--- OUTSIDE RECORDS SUMMARY | 2024-06-08 14:10 | XMS_ITS | Encounter Summary ---
[place] [address] Care Team Providers Care Phlebotomist Medical Lab Assistant Name Role Phone Magdalena Acosta MD Primary Care Provider Reason for Referral * Consultation (Routine) - Closed Specialty Diagnoses / Procedures Referred By Contac t Referred To Contact Hematology and Oncology Diagnoses Anemia, unspecified type Consuelo Guerrero DO [address] [place] [address] [address] [place] [address] [facility] [address] [place] [address] Referral ID Status Reason Start Date Expiration Date V isits Requested Visits Authorized [id number] Closed Consult, Test & Treat 04/11/2024 04/11/2025 1 1 Encounter Details Date Type Department Care Team (Late st Contact Info) Description 04/11/2024 Transcribe Orders eDH Incoming Referrals [phone] Consuelo Guerrero DO [address] [place] [address] [address] [place] [address] Anemia, unspecified type Social History [...] EST Office Visit [place] [address] Markel Borjas MD [facility] DR [place] [address] 11/02/2024 12:00 PM EDT Appointment Pulmonology at [place] [address] 11/02/2024 1:00 PM EDT Office Visit Rheumatology at [place] [address] Magdalena Peralta MD [facility] [place] [address] 03/01/2025 4:15 PM EDT Office Visit Dermatology at [address] [place] [address] Marek Bonilla MD [address] [place] [address] Scheduled Referrals Name Type Priority Associated Diagnoses Orde r Schedule Referral to Hematology and Oncology Outpatient Referral Routine Anemia, unspecified type Ordered: 04/11/2024 documented as of this encounter Visit Diagnoses Diagnosis Anemia, unspecified type documented in this encounter Care Teams Phlebotomist Medical Lab Assistant Relationship Specialty Start Date End Date Magdalena Acosta MD [address] [place] [address] PCP - General Family Medicine 02/05/23 documented as of this encounter
--- OUTSIDE RECORDS SUMMARY | 2024-06-08 14:10 | XMS_ITS | Encounter Summary ---
Author Organization [facility] Address [facility] [place] [address] Care Team Providers Care Interior Design Consultant Name Role Phone Magdalena Acosta MD Primary Care Provider [phone] Reason for Visit * Reason Comments Coronary Artery Disease Hypertension Aortic Stenosis Encounter Details Date Type Department Care Team (Latest Contact Info) Description 07/20/2023 4:40 PM EST TH Visit (TeleHealth) Cardiology at [address] [address] Jay Maza PA [facility] [place] [address] HFrEF (heart failure with reduced ejection fraction); [...] Maza PA - 07/20/2023 4:40 PM EST [facility] Heart & Vascular [...] lieu of an in person office visit. Dry Color Tester: Antelmo Sharma MD ([facility] Cards) Maria Luz Mejia MD ([facility] cards) Problem List: : prior surgical [...] I35.0 Mild coronary artery disease by [facility] 11/09/2022 I25.10 Heart failure with [...] notable for coronary artery protection given low [id number]-dx-[id number] distance. There was no obstruction post Valve deployment, but the stent could not be removed safely, so it was deployed. 4.0 mm x 30mm in left main. She was loaded on brilinta aka ticagrelor. Immediately post valve deployment, chest compressions to circulate central epinephrine which was administered given her hypotension, low LVEF, and low cardiac reserve. Next, the patient was transferred to [facility] for pressor and inotropic support. Pressors weaned overnight. Cardiac indices by thermodilution remained greater than 3 with continued Milrinone 0.125 mcg/kg/min. EKG the next day with NSR with stable MI/QRS intervals. Hemoglobin 7.8 [...] arms and wrists. Successful right transfemoral TAVR Zlebb-dv-Kaozx with a 23 mm Lai 3 THV. [...] leads Confirmed by MD Harshil, Haris Bell ([id number]) on 05/10/2023 8:11:46 AM Cardiac Cath 11/09/2022 [...] in chart review and direct patient contact. [id number] 0-5min [id number] 6-10min [id number] 11-15min [id number] 16-20min x [id number] 21-30min [id number] 31-40min [id number] 40+ min Jay Maza PA-C Interventional Cardiology [facility] Heart and Vascular [facility] Pager [phone] documented in this encounter Plan of Treatment Upcoming Encounters Date Type Department Care Team (Late st Contact Info) Description 06/23/2024 2:00 PM EST Office Visit [place] [address] Markel Borjas MD [facility] DR [place] [address] 11/02/2024 12:00 PM EDT [place]oint[place] [address] 11/02/2024 1:00 PM EDT Office [place] [address] Magdalena Peralta MD [facility] [place] [address] 03/01/2025 4:15 PM EDT Office Visit Dermatology at [place] [address] [facility] [place] [address] Marek Bonilla MD [address] [facility] [place] [address] documented as of this encounter Visit Diagnoses Diagnosis HFrEF (heart failure with reduced ejection fraction) Hypertension, unspecified type Aortic valve stenosis, etiology of cardiac valve disease unspecified documented in this encounter Care Teams Interior Design Consultant Relationship Specialty Start Date End Date Magdalena Acosta MD [address] [place] [address] PCP - General Family Medicine 02/05/23 documented as of this encounter
--- OUTSIDE RECORDS SUMMARY | 2024-06-08 14:10 | XMS_ITS | Encounter Summary ---
[place] [address] Care Team Providers Care Senior Ecologist Name Role Phone Magdalena Acosta MD Primary Care Provider [phone] Reason for Visit * Reason Comments Annual Exam Encounter Details Date Type Department Care Team (Late st Contact Info) Description 02/22/2024 4:15 PM EDT Office Visit Dermatology at [address] [phone] Marek Bonilla MD [address] [facility] A DERMATOLOGY [place], [place] [id number] Seborrheic keratosis; Rosacea; Nevus Social History Tobacco [...] and ocular 3. Previously told by manager outreach that she had corneal tears from her [...] EST Office Visit [place] [address] Markel Borjas MD [facility] [address] [place] [address] 11/02/2024 12:00 PM EDT [place] [phone] 11/02/2024 1:00 PM EDT [place] [address] Magdalena Peralta MD [facility] [place] [address] 03/01/2025 4:15 PM EDT Office Visit Dermatology at [address] [place] [address] Marek Bonilla MD [address], [place] [address] documented as of this encounter Visit Diagnoses Diagnosis Seborrheic keratosis Other seborrheic keratosis Rosacea Nevus Benign neoplasm of skin, site unspecified documented in this encounter Care Teams Senior Ecologist Relationship Specialty Start Date End Date Magdalena Acosta MD [address] [place] [address] PCP - General Family Medicine 02/05/23 documented as of this encounter
--- OUTSIDE RECORDS SUMMARY | 2024-06-08 14:11 | XMS_ITS | Encounter Summary ---
Author Organization [facility] Address [facility] [place] [address] Care Team Providers Care Grid Casting Machine Operator Helper Name Role Phone Magdalena Acosta MD Primary Care Provider [phone] Reason for Referral * Diagnostic Test (Routine) - Closed Specialty Diagnoses / Procedures Referred By Contac t Referred To Contact Cardiology Diagnoses S/P TAVR (transcatheter aortic valve replacement) Procedures Echocardiogram Transthoracic Vinod Juárez PA [facility] [place] [address] [facility] [place] [address] Referral ID Status Reason Start Date Expiration Date V isits Requested Visits Authorized [id number] Closed Specialty Service Requested 05/22/2023 05/21/2024 1 1 * Home Health Care (Routine) - Closed Specialty Diagnoses / Procedures Referred By Contac t Referred To Contact Diagnoses S/P TAVR (transcatheter aortic valve replacement) Alirio Hudson MD [facility] CARDIOTHORACIC SURGERY [address] [facility] & [address] [place] [address] Referral ID Status Reason Start Date Expiration Date V isits Requested Visits Authorized [id number] Closed Consult, Test & Treat 05/22/2023 11/18/2023 999 999 * Consultation (Routine) - Closed Specialty Diagnoses / Procedures Referred By Crispin maxwell Referred To Contact Cardiology Diagnoses S/P TAVR (transcatheter aortic valve replacement) Alirio Hudson MD [facility] [place] [address] Cardiac Rehab, [address] [place] [address] Referral ID Status Reason Start Date Expiration Date V isits Requested Visits Authorized [id number] Closed Consult, Test & Treat 05/22/2023 11/18/2023 36 36 * Diagnostic Test (Routine) - Closed Specialty Diagnoses / Procedures Referred By Crispin maxwell Referred To Contact Cardiology Diagnoses Aortic valve stenosis, etiology of cardiac valve disease unspecified Procedures Echocardiogram Transthoracic Transesophageal Echocardiogram (YUSRA) Radha Hollins MD [facility] [place] [address] [facility] [place] [address] Referral ID Status Reason Start Date Expiration Date V isits Requested Visits Authorized [id number] Closed Specialty Service Requested 05/11/2023 05/10/2024 1 1 Reason for Visit * Auth/Cert (Routine) Specialty Diagnoses / Procedures Referred By Crispin maxwell Referred To Contact Diagnoses Symptomatic severe aortic stenosis with low ejection fraction NSTEMI, CHF Enrique Chua MD [facility] [place] [address] [facility] Referral ID Status Reason Start Date Expiration Date Visits Re quested Visits Authorized [id number] 1 1 Encounter Details Date Type Department Care Team (Latest Contact Info) Description 05/08/2023 9:14 AM EDT - 05/22/2023 10:46 AM EDT Hospital Encounter Heart and Vascular Unit Level 4 [place] [address] Enrique Chua MD [facility] [place] [address] Juan Luis Gonzalez MD [facility] [place] [address] Radha Hollins MD [facility] [place] [address] Alirio Hudson MD S/P TAVR (transcatheter aortic valve replacement) (Primary Dx); Aortic valve stenosis, etiology of cardiac valve disease unspecified; Symptomatic severe aortic stenosis with low ejection fraction; Heart failure with reduced ejection fraction due to heart valve disease; Mild coronary artery disease by [facility] 11/09/2022; Mixed connective tissue disease; [...] Patient Age: 67 y.o. Birthdate: 1955 Language: Nicaraguan Race: White Ethnicity: Not nor Admit Date: 05/08/2023 Discharge Date: 05/22/2023 Attending Physician: Alirio Hudson MD Follow-up Recommendations for Providers: Please continue routine management of cardiovascular risk factors including blood pressure, lipids,glucose, etc. Please note any medication changes. Patient to follow up with PCP, Magdalena Acosta MD, or Primary Accounting Lecturer, Maria Luz Mejia MD, in ~ 7-10 days. Patient to follow up with Chemical Research Technician, Dr. Antelmo Sharma, in 2 weeks with an EKG, Echo, CBC, and CMP. Patient to follow up with Nephrology, their office to arrange. Swnx-Eoerab-rn interval: After initial 30 day follow-up appointment , all TAVR patients will follow-up again in one year with an echo. 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 Secondary Diagnoses: Active Hospital Problems Diagnosis S/P TAVR (transcatheter aortic valve replacement) Cardiogenic shock Symptomatic severe aortic stenosis with low ejection fraction Mild coronary artery disease by [facility] 11/09/2022 Heart failure with reduced [...] Tube Placement Right 05/18/2023 Laure Ricks PA [facility] INTERVENTIONL RAD PRG CATH PLMT LEFT HEART CATH & ARTS W/INJ & ANGIO IMG S&I N/A 11/09/2022 CORONARY ANGIOGRAPHY; W [facility],POSSIBLE PCI (WRVU 5.6) performed by Mario Alberto Escobedo MD at [facility] CATH LABS PRG COMBINED RIGHT & LEFT HEART CATH W/INJ L VENTRICULOGRAPHY, IMG S&I N/A 05/12/2023 COMBINED RIGHT & LEFT HEART CATH,INC INJ FOR L VENTRICULOGRAPHY (WRVU 5.99) performed by Antelmo Sharma MD at [facility] CATH LABS PRO AORTOPLAS FOR SUPRAVALV STEN N/A 09/21/2016 @AORTOPLASTY FOR SUPRAVALVULAR STENOSIS (WRVU 29.33) performed by Alirio Hudson MD at [facility] MAIN OR PRO REPLACE AORTIC VALVE (TAVR/FEDERICO)PERC FEMORAL ARTERY APPROACH 05/12/2023 @TRANSCATHETER AORTIC VALVE REPLACEMENT (TAVR), PERCUTANEOUS FEMORAL (WRVU 22.47) performed by Alirio Hudson MD at [facility] CATH LABS PRO REPLACEMENT PROSTHETIC AORTIC VALVE OPEN W CARDIOPULMONARY BYPASS HOMOGRF/STENT N/A 09/21/2016 @REPLACE AORTIC VALVE, OPEN, W\CPB, W\PROSTHETIC VALVE (WRVU 41.32) performed by Alirio Hudson MD at [facility] MAIN OR [...] Major Procedures/Operations: 05/12/23: Successful right transfemoral TAVR Nuxrq-to-Wdwdu with a 23 mm Lia 3 THV. Left coronary protection with left [...] if you have questions. Please call your Chemical Research Technician's office if you have any discharge or drainage from your procedural sites. Your Chemical Research Technician, Dr. Antelmo Sharma and/or the Communications Tower Technician may be reached at . Antibiotic prophylaxis: You will need to take antibiotics prior to many invasive tests and treatments, such as dental cleaning, which should be done every 6 months. Your primary care physician or your dentist can prescribe this medication. Please refer to the card with the [place] Heart Association Guidelines for more information. You have been provided with a copy of this card. Please refer to the [place] Heart Association Guidelines for more information. Good [...] friends, go to a movie, go to anabaptism, etc. Heavy activities: No hunting, skiing, jogging, [...] should resume a low fat, low cholesterol, [place] Heart Association Diet Driving: No restrictions. Shower/Bath: You may shower daily. No baths, soaking, or swimming for the first week. Wound care: Wash the sites daily with soap and rinse well, pat dry. Assess for any signs of infection such as increased redness, pain, warmth or drainage. Please call your associate professor plant pathology's office if you have any discharge or drainage from your procedural sites. If there is a lot of swelling, apply mamta wraps during the day and remove at bedtime. Elevate your legs when you are sitting. Home oxygen therapy: N/A Follow up appointments: Please schedule a follow-up appointment with your PCP, Magdalena Acosta MD, or Primary Accounting Lecturer in ~ 7-10 days. You have a follow-up appointment with your Chemical Research Technician, Dr. Antelmo Sharma, in 2 weeks with an EKG, Echo, and labs prior to your appointment. You will need follow-up with Nephrology, their office will arrange. Lrxi-Preagz-sa interval: After initial 30 day follow-up appointment [...] at [facility] [place]rive at: [facility] [phone] 02/11/2024 2:00 PM Marek Bonilla MD Dermatology at [place] Arrive at: [facility] [address] [phone] Future Orders Complete By Expires Type and Screen Future Surgery, [facility] SAME DAY PROGRAM ONLY) [[id number] Custom] 05/11/2023 Process Instructions: This test is intended ONLY for patients with upcoming surgery for testing prior to the day of surgery obtained through the same day program (4V or SDP). For ALL OTHER PATIENTS, order a Type and Screen (KYY236) This order includes the physician order for an ABO Recheck if requested by the Blood Bank. Scheduling Instructions: Comments: Questions: Date of surgery: CBC (with Diff) [ENI994 Custom] 06/05/2023 12/05/2023 Process Instructions: INCLUDES: WBC, RBC, Hgb, Hct, Platelets, RBC Indices and Differential Scheduling Instructions: Comments: Questions: Comprehensive metabolic panel (non-fasting) [LAB17 Custom] 06/05/2023 08/20/2023 Process Instructions: INCLUDES: Calcium, T Protein, Albumin, AST, ALT, Alk Phos, T Bili, BUN, Creat, GFR, Glucose, Lytes. Scheduling Instructions: Comments: Questions: Echocardiogram Transthoracic [47057 CPT(R)] 06/05/2023 12/05/2023 Process Instructions: Scheduling Instructions: Questions: Where will study be performed?: [facility] Does the patient have Congenital Heart Disease?: Does patient require sedation?: GA rationale: EKG 12 Lead [22251 CPT(R)] 06/05/2023 12/05/2023 Process Instructions: Scheduling Instructions: Questions: Which location will this be performed?: [place] Is a rhythm strip needed?: No [facility] Devices [EQ161 Custom] As directed Process Instructions: Scheduling Instructions: Questions: Device Needed: WALKER (E0143) Patient Height (cm): 154.9 cm (5' 0.98) Patient Weight: 75.4 kg (166 lb 3.2 oz) Diagnosis: Unsteady gait when walking Referral to Cardiac Rehab [YOD363 Custom] As directed Process Instructions: If no progress note charted, please enter Clinical details in comments. Scheduling Instructions: Questions: My question or request is: s/p TAVR. Cardiac rehab at [facility]. Referral to Home Health [REF34 Custom] As directed Process Instructions: If no progress note charted, please enter Clinical details in comments. Scheduling Instructions: Comments: DOCUMENTATION FOR VNA SERVICES PATIENT'S LOCATION: Purnima Thacker [address] [place] [phone] (home) Furniture Packer's Name: Self and brother Raymond In discussion with the attending physician, it is certified that this patient is under his/her careand that MD, or an TEAM PHYSICIAN, DEAF/HARD OF HEARING SPECIALIST, or PA who is working directly with him/her, had a mpcs-zx-ehlx encounter that meets the physician kjtl-fc-krcq encounter requirements with this patient on 05/22/2023. [...] for managing ADLs. HOME HEALTH CARE AGENCY: [facility]. [address] [place] [address] PHONE: [phone] FAX: [phone] Start of care: Ideally 24-48 hours after [...] Acosta MD [address] / [facility] [address] All VNA agencies which cover the area [...] Surgery Date: 05/22/2023 CC: Magdalena Acosta MD KimmswickMario Alberto MD [address] [place] [address] documented in this encounter Discharge Instructions * Patient Instructions* Vinod Juárez PA - 05/22/2023 9:32 AM EDT TAVR Discharge Instructions: Call your doctor if: You have a fever of greater than 101 degrees, shaking chills, if you develop redness or drainage from your procedure sites, or if you have questions. Please call your Chemical Research Technician's office if you have any discharge or drainage from your procedural sites. Your Chemical Research Technician, Dr. Antelmo Sharma and/or the Communications Tower Technician may be reached at . Antibiotic prophylaxis: You will need to take antibiotics prior to many invasive tests and treatments, such as dental cleaning, which should be done every 6 months. Your primary care physician or your dentist can prescribe this medication. Please refer to the card with the [place] Heart Association Guidelines for more information. You have been provided with a copy of this card. Please refer to the [place] Heart Association Guidelines for more information. Good [...] friends, go to a movie, go to anabaptism, etc. Heavy activities: No hunting, skiing, jogging, [...] should resume a low fat, low cholesterol, [place] Heart Association Diet Driving: No restrictions. Shower/Bath: You may shower daily. No baths, soaking, or swimming for the first week. Wound care: Wash the sites daily with soap and rinse well, pat dry. Assess for any signs of infection such as increased redness, pain, warmth or drainage. Please call your associate professor plant pathology's office if you have any discharge or drainage from your procedural sites. If there is a lot of swelling, apply mamta wraps during the day and remove at bedtime. Elevate your legs when you are sitting. Home oxygen therapy: N/A Follow up appointments: Please schedule a follow-up appointment with your PCP, Magdalena Acosta MD, or Primary Accounting Lecturer in ~ 7-10 days. You have a follow-up appointment with your Chemical Research Technician, Dr. Antelmo Sharma, in 2 weeks with an EKG, Echo, and labs prior to your appointment. You will need follow-up with Nephrology, their office will arrange. Tlqk-Lvdshv-me interval: After initial 30 day follow-up appointment [...] ins ( tef) Haven Ba, PT Pager: [phone] Physical Therapy Inpatient Rehabilitation Department * Nico [...] 0600 and on the weekends please page [phone]. * Jory Paniagua - 05/20/2023 3:52 PM [...] vomiting Last Bowel Movement: 05/20/23 Jory Paniagua Chief Mechanical Officer * Tong Mike, OT - 05/20/2023 3:16 [...] Tube Placement Right 05/18/2023 Laure Ricks PA [facility] INTERVENTIONL RAD PRG CATH PLMT LEFT HEART CATH & ARTS W/INJ & ANGIO IMG S&I N/A 11/09/2022 CORONARY ANGIOGRAPHY; W [facility],POSSIBLE PCI (WRVU 5.6) performed by Mario Alberto Escobedo MD at [facility] CATH LABS PRG COMBINED RIGHT & LEFT HEART CATH W/INJ L VENTRICULOGRAPHY, IMG S&I N/A 05/12/2023 COMBINED RIGHT & LEFT HEART CATH,INC INJ FOR L VENTRICULOGRAPHY (WRVU 5.99) performed by Antelmo Sharma MD at [facility] CATH LABS PRO AORTOPLAS FOR SUPRAVALV STEN N/A 09/21/2016 @AORTOPLASTY FOR SUPRAVALVULAR STENOSIS (WRVU 29.33) performed by Alirio Hudson MD at [facility] MAIN OR PRO REPLACE AORTIC VALVE (TAVR/FEDERICO)PERC FEMORAL ARTERY APPROACH 05/12/2023 @TRANSCATHETER AORTIC VALVE REPLACEMENT (TAVR), PERCUTANEOUS FEMORAL (WRVU 22.47) performed by Alirio Hudson MD at [facility] CATH LABS PRO REPLACEMENT PROSTHETIC AORTIC VALVE OPEN W CARDIOPULMONARY BYPASS HOMOGRF/STENT N/A 09/21/2016 @REPLACE AORTIC VALVE, OPEN, W\CPB, W\PROSTHETIC VALVE (WRVU 41.32) performed by Alirio Hudson MD at [facility] MAIN OR Social History: Patient lives alone. Home Setup: Pt lives on one level with tub shower and three steps to enter. DME: none used FOREIGN LANGUAGE INSTRUCTOR Baseline ADL/Mobility: Independent with ADLs and IADLs. [...] awareness: WFL Vision & Perception: corrective lenses substitute nurse Communication: WFL Range of motion, strength, coordination: [...] Discharge planning. Total Minutes, Occupational Therapy: 28 (1430-7709) OT Evaluation Code Rationale: Diagnosis & Pertinent Co-Morbidities affecting Plan of Care: see PMHx Occupational Profile & Client History: Brief Expanded Extensive x Assessment of Occupational Performance: 1-3 performance deficits 3-5 performance deficits x 5 + performance deficits Clinical Decision Making: Low Moderate High x Clinical decision making of moderate complexity using standardized patient assessment instrument and measurable assessment of functional outcome. Pager: [phone] TONG MIKE OT 05/20/2023 Occupational Therapy Rehabilitation [...] 0600 and on the weekends please page [phone]. * Rylie Rodriguez MD - 05/19/2023 3:59 [...] and plan. Cynthia Blackburn MD Nephrology Pager: [phone] * Diana Espino - 05/19/2023 1:49 PM EDT Registered Phlebotomist Part Time Encounter Note Patient Name: Purnima Thacker : [id number] MR#: [id number] Admit Date: 05/08/2023 9:14 AM Hospital Day [...] as stated. Total Minutes, Physical Therapy: 38 (2214-4009) Henrik Navarrete, FOREIGN LANGUAGE INSTRUCTOR Pager: [phone] Physical Therapy Inpatient Rehabilitation Department * Nico [...] 0600 and on the weekends please page [phone]. * Laure Ricks PA - 05/19/2023 7:56 [...] Ricks PA-C Interventional Radiology IR Team Pager [phone] * Consuelo Espinoza RN - 05/18/2023 4:13 PM EDT ANGIO NURSING DATABASE Name: Purnima Thacker Date of : 1955 AGE: 67 y.o. [address]: [address] [place] [phone] (home) Mobile: No relevant phone numbers on [...] fraction I35.0 Mild coronary artery disease by [facility] 11/09/2022 I25.10 Heart failure with [...] and plan. Cynthia Blackburn MD Nephrology Pager: [phone] * Magdalena Puri, COMMUNITY NUTRITION EDUCATOR - 05/18/2023 10:51 AM EDT Images from the original note were not included. [facility] [place] [address] STRUCTURAL HEART DISEASE CONSULTATION NOTE PRIMARY CARE [...] stenosis. She is now status post TAVR Jkuhg-xs-Wduvb with a 23 mm Lai 3 THV 05/12/[address] Sharma. Preliminary findings: Successful right transfemoral TAVR Gihma-up-Exaql with a 23 mm Lai 3 THV. [...] ejection fraction Mild coronary artery disease by [facility] 11/09/2022 Heart failure with reduced [...] stenosis. She is now status post TAVR Txdbt-aa-Ydyrn with a 23 mm Lai 3 THV 05/12/[address] Sharma. Janet TAVR case notable for coronary LAD protective MINNA. Status post TAVR, the patient was transferred to [facility] for pressor and inotropic support. Pressors [...] Magdalena Puri APRN Structural Heart Team Pager [phone] Team Office Please see addendum by Dr. Sharma for final plan and recommendations Associated attestation - Antelmo Sharma MD - 05/19/2023 10:52 PM EDT I have reviewed Magdalena Puri APRN's above history and I agree with the details as written. The assessment and plan were formulated in discussion with me and I agree with them as documented. Antelmo Sharma MD Pager [phone] * Nico Palacios PA - 05/18/2023 8:13 [...] - improving Secondary to cardiogenic shock and [employer] lasix for now; autodiuresing. Daily BMP. [...] 0600 and on the weekends please page [phone]. * Loli Hernandez, PT - 05/17/2023 5:27 [...] plan as stated. Time IN / OUT: 4726-8368 Total Minutes, Physical Therapy: 54 Billing Code: te-sx2, te-f, gait LOLI HERNANDEZ PT Pager: [phone] Physical Therapy Inpatient Rehabilitation Department * Cynthia [...] Well controlled. Cynthia Blackburn MD Nephrology Pager: [phone] * Maggie Mara, COMMUNITY NUTRITION EDUCATOR - 05/17/2023 8:26 AM EDT Cardiac Surgery [...] 0600 and on the weekends please page [phone]. * Guerda Del Valle - 05/16/2023 10:44 AM EDT Nutrition Services Note - Low Nutrition Acuity Purnima Thacker is a 67 y.o. female Reason for intervention: hospital day 9 Nutrition Plan: Continue diet order Encourage good PO Lasix and Zofran noted Added special serve: open containers Monitor weight Patient scheduled for a hospital day 9 nutrition evaluation. Ferry Operator met with pt at bedside. Pt reports that her appetite and PO has much improved since admission. Denies nausea/vomiting or trouble chewing/swallowing. Ferry Operator provided snack list but pt not interested in adding snacks at this time. Her only concern was that she is worried that she will eat too much which will cause too much pressure in her stomach. Ferry Operator assured pt and suggested eating smaller [...] Last Bowel Movement: 05/10/23 Guerda Del Valle Chief Mechanical Officer * Vinod Juárez PA - 05/16/2023 10:19 [...] 0600 and on the weekends please page [phone]. * Michael Jeffers MD - 05/16/2023 8:11 AM EDT Images from the original note were not included. Hypertension-Nephrology Inpatient Follow-up Purnima Thacker [id number] 1955 ID: 67 y.o. old female seen [...] IRONSAT 12 (L) 05/16/2023 SFOLATE >20.0 07/03/2022 [id number] 07/03/2022 Lab Results Component Value Date [...] Dr. Ayoub. Please contact me at phone: [phone] or pager: [phone] with any questions. Michael Jeffers MD Nephrology [...] -Nephrology consulted, labs and renal US ordered -[place] removed, ambulated around the unit -bilateral pleural [...] 0600 and on the weekends please page [phone]. * Hortencia Cody MD - 05/15/2023 2:07 [...] not included. Hypertension-Nephrology Inpatient Follow-up Purnima Thacker [id number] 1955 ID: 67 y.o. old female seen [...] HGB 7.8 (L) 05/13/2023 SFOLATE >20.0 07/03/2022 [id number] 07/03/2022 Lab Results Component Value Date [...] Dr. Ayoub. Please contact me at phone: [phone] or pager: [phone] with any questions. Michael Jeffers MD Nephrology [...] outlined inthis evaluation. HAVEN BA, PT Pager: [phone] Physical Therapy Inpatient Rehabilitation Department Time IN / OUT: 6244-1540 Total time: Total Minutes, Physical Therapy: 30 [...] 0600 and on the weekends please page [phone]. * Antelmo Sharma MD - 05/14/2023 7:56 AM EDT Images from the original note were not included. [facility] [place] [id number] STRUCTURAL HEART DISEASE CONSULTATION NOTE PRIMARY CARE [...] stenosis. She is now status post TAVR Dacgg-gx-Mqsro with a 23 mm Lai 3 THV 05/12/[address] Sharma. Preliminary findings: Successful right transfemoral TAVR Obebu-mk-Xoinx with a 23 mm Lai 3 THV. [...] ejection fraction Mild coronary artery disease by [facility] 11/09/2022 Heart failure with reduced [...] stenosis. She is now status post TAVR Bxzyr-fj-Cdusp with a 23 mm Lai 3 THV 05/12/[address] Sharma. Janet TAVR case notable for coronary LAD protective MINNA. Status post TAVR, the patient was transferred to [facility] for pressor and inotropic support. Pressors weaned overnight 05/12. Cardiac indices by thermodilution remained >3 with continued Milrinone 0.125 mcg/kg/min prior to PAC removal. EKG todayNSR with stable VA/QRS intervals. Hemoglobin slowly down-trending (8.2-> 7.8-> 7.2). [...] Brody Kaplan APRN Structural Heart Team Pager [phone] Team Office Please see addendum by Dr. [...] exposure. Nephrology consultationtoday. Antelmo Sharma MD Pager [phone] * Antelmo Cardenas RN - 05/14/2023 5:18 AM EDT Pt AOx4, complaining of mild/moderate generalized pain (states her Meloxicam is effective at home) currently refusing prn oxycodone. NAEON, hemodynamically stable on Milrinone, Maps >65, ST in sfb108's down to NSR with frequent multifocal PVC's. [...] [facility] [place] [address] [address] STRUCTURAL HEART DISEASE PROGRESS NOTE PRIMARY CARE [...] stenosis. She is now status post TAVR Mvlhc-qt-Fzfuh with a 23 mm Lai 3 THV 05/12/[address] Sharma. Preliminary findings: Successful right transfemoral TAVR Hntsg-pq-Tfgdt with a 23 mm Lai 3 THV. [...] or perforation. Interval Events: - Transferred to [facility] post- TAVR for pressor/inotropic support (Levo, [...] ejection fraction Mild coronary artery disease by [facility] 11/09/2022 Heart failure with reduced [...] stenosis. She is now status post TAVR Btvkr-pa-Wqsig with a 23 mm Lai 3 THV 05/12/[address] Sharma. Janet TAVR case notable for coronary LAD protective MINNA. Status post TAVR, the patient was transferred to [facility] for pressor and inotropic support. Pressors weaned overnight. Cardiac indices by thermodilution remain greater than 3 with continued Milrinone 0.125 mcg/kg/min. EKG today NSR with stable VA/QRS intervals. Hemoglobin 7.8 today from 8.5, likely [...] Brody Kaplan APRN Structural Heart Team Pager [phone] Team Office Please see addendum by Dr. [...] DAPT moving forward. Antelmo Sharma MD Pager [phone] * Bonita Miguel PA - 05/13/2023 8:30 [...] soft b/l, no evidence of hematoma. Tubes/Lines/Drains: [place], RIJ, A-line, Art, PIV Assessment/Plan: 67 y.o. [...] 0600 and on the weekends please page [phone]. * Onelia Schwartz MD - 05/12/2023 1:44 [...] ejection fraction Mild coronary artery disease by [facility] 11/09/2022 Heart failure with reduced [...] FiO2 weaned to 40%. 1105: ABG 7.34/42/73/22 2771-7031: SBT performed and passed on these settings [...] PCP: Magdalena Acosta MD PCP phone number: [phone] Date of Admission: 05/08/2023 ( Hospital Day [...] 1447 PHART -- 7.34* 7.34* -- -- PWR6FOY -- 30* 30* -- -- PO2ART -- 72* 81* -- -- DDY5ESA -- 16.0* 15.7* -- -- LACTATEVEN 2.4* 2.7* 2.7* 4.8* 2.9* VBG (Venous Blood Gas) Recent Labs 05/12/23 0700 05/12/23 0318 05/12/2310505/11/23193905/11/23 1447 LACTATEVEN 2.4* 2.7* 2.7* 4.8* 2.9* Mixed Venous Sat Recent Labs 05/12/23 0508 05/12/23 0321 05/12/23 0114 05/12/23 0030 C2GKTH1 30.7 32.7 37.3 25.1 Objective: Vitals Last [...] questions please contact the health primary care nurse that requested your imaging first. Electronically signed by: ALIX RUVALCABA MD, [facility] ([phone]), at 05/10/2023 1:[address] Cardiac for [...] questions please contact the health primary care nurse that requested your imaging first. Electronically signed by: Cullen Narayanan MD, [facility] ([phone]), at 05/11/2023 4:[address] Angiogram Abdomen [...] questions please contact the health primary care nurse that requested your imaging first. Electronically signed by: Eileen Gomes MD, [facility] ([phone]), at 05/11/2023 2:42 PM XR Chest One [...] questions please contact the health primary care nurse that requested your imaging first. Chest [...] questions please contact the health primary care nurse that requested your imaging first. Assessment [...] and inotrope. She is planned for a hnzbo-lr-pjons TAVR this morning, which should hopefully improve [...] Section of Cardiovascular Medicine [facility] Mixing Tumbler Operatorinspector missile [facility] * Noreen Deutsch RN - [...] ejection fraction Mild coronary artery disease by [facility] 11/09/2022 Heart failure with reduced [...] 05/11/2023 4:11 PM EDT Reported off to BILINGUAL INSIDE SALES REPRESENTATIVE and pt transferred over in the bed for higher level of care. * Antelmo Sharma MD - 05/11/2023 9:45 AM EDT Images from the original note were not included. [facility] [phone] [id number] STRUCTURAL HEART DISEASE CONSULTATION NOTE PRIMARY CARE [...] who had been referred for possible TAVR ajexv-xy-ycqgg evaluation. Her primary symptoms are of dyspnea [...] originally from [place]. 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 [...] ejection fraction Mild coronary artery disease by [facility] 11/09/2022 Heart failure with reduced [...] 40 mEq 40 mEq Oral Q4H PRN Crsitina Jernigan MD Or potassium chloride ER (Klor-Con [...] blood, send to lab ([facility]) Result Value Ref Range Lactate WB 3.1 (H) 0.5 - 2.2 mmol/L Heparin (unfractionated) Level Result Value Ref Range Heparin UFH Level 0.46 IU/mL Lactate, whole blood, send to lab ([facility]) Result Value Ref Range Lactate WB 1.8 [...] leads Confirmed by MD Harshil, Enrique Bell ([id number]) on 05/10/2023 8:11:46 AM Cardiac Cath 11/09/2022 [...] alert Dr. Hudson of her inpatient status, [facility] primary cardiac surgeon. Based on recent clinic visit, tentative plan had been for TAVR JANET ferrera given her chronological age. Cardiac cath 11/09/2022 notable for non-obstructive coronary disease. TAVR CTAs planned for today. Will review her case with cardiac surgery to determine best timing and therapies for her valve intervention. Addendum 05/11/2023 6:48 PM Due to decompensating HFrEF, she was transferred to [facility] this afternoon for further management. TAVR CT imaging support for adequate ileofemoral access. Given her acute deterioration today, will planfor RTF TAVR on 05/12/2023. Brody KaplanANURAG Structural Heart Disease Pager [phone] Please see addendum by Dr. Sharma for [...] signed and dated. Antelmo Sharma MD Pager [phone] * Harini Lance MD - 05/11/2023 6:06 AM EDT Images from the original note were not included. Cardiology Progress Note Patient info: Name: Purnima Thacker : 1955 PCP: Magdalena Acosta MD PCP phone number: [phone] Date of Admission: 05/08/2023 ( Hospital Day [...] questions please contact the health primary care nurse that requested your imaging first. Electronically signed by: ALIX RUVALCABA MD, [facility] ([phone]), at 05/10/2023 1:25 PM TTE: 05/08 -Left [...] 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) Mild coronary artery disease by [facility] 11/09/2022 Hyperlipidemia, unspecified NICOLAS (obstructive [...] PCP: Magdalena Acosta MD PCP phone number: [phone] Date of Admission: 05/08/2023 ( Hospital Day [...] 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) Mild coronary artery disease by [facility] 11/09/2022 Hyperlipidemia, unspecified NICOLAS (obstructive [...] PCP: Magdalena Acosta MD PCP phone number: [phone] Date of Admission: 05/08/2023 ( Hospital Day [...] Gas) No results found for: PHART, PO2ART, JHP7PAL, PUG2DXS Microbiology: Microbiology Results (Last 30 days) No [...] 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) Mild coronary artery disease by [facility] 11/09/2022 Hyperlipidemia, unspecified NICOLAS (obstructive [...] fraction I35.0 Mild coronary artery disease by [facility] 11/09/2022 I25.10 Heart failure with reduced ejection fraction due to heart valve disease I50.20, I38 Cardiogenic shock R57.0 S/P TAVR (transcatheter aortic valve replacement) Z95.2 Past Medical History: Diagnosis Date Anemia Past Surgical History: Procedure Laterality Date PRG CATH PLMT LEFT HEART CATH & ARTS W/INJ & ANGIO IMG S&I N/A 11/09/2022 CORONARY ANGIOGRAPHY; W [facility],POSSIBLE PCI (WRVU 5.6) performed by Mario Alberto Escobedo MD at [facility] CATH LABS PRO AORTOPLAS FOR SUPRAVALV STEN N/A 09/21/2016 @AORTOPLASTY FOR SUPRAVALVULAR STENOSIS (WRVU 29.33) performed by Alirio Hudson MD at [facility] MAIN OR PRO REPLACEMENT PROSTHETIC AORTIC VALVE OPEN W CARDIOPULMONARY BYPASS HOMOGRF/STENT N/A 09/21/2016 @REPLACE AORTIC VALVE, OPEN, W\CPB, W\PROSTHETIC VALVE (WRVU 41.32) performed by Alirio Hudson MD at [facility] MAIN OR Social History and [...] fraction I35.0 Mild coronary artery disease by [facility] 11/09/2022 I25.10 Heart failure with reduced ejection fraction due to heart valve disease I50.20, I38 Cardiogenic shock R57.0 S/P TAVR (transcatheter aortic valve replacement) Z95.2 Past Medical History: Diagnosis Date Anemia Past Surgical History: Procedure Laterality Date PRG CATH PLME LEFT HEART CATH & ARTS W/INJ & ANGIO IMG S&I N/A 11/09/2022 CORONARY ANGIOGRAPHY; W [facility],POSSIBLE PCI (WRVU 5.6) performed by Mario Alberto Escobedo MD at [facility] CATH LABS PRO AORTOPLAS FOR SUPRAVALV STEN N/A 09/21/2016 @AORTOPLASTY FOR SUPRAVALVULAR STENOSIS (WRVU 29.33) performed by Alirio Hudson MD at [facility] MAIN OR PRO REPLACEMENT PROSTHETIC AORTIC VALVE OPEN W CARDIOPULMONARY BYPASS HOMOGRF/STENT N/A 09/21/2016 @REPLACE AORTIC VALVE, OPEN, W\CPB, W\PROSTHETIC VALVE (WRVU 41.32) performed by Alirio Hudson MD at [facility] MAIN OR Social History and [...] days, which prompted her to present to [facility]. She also endorses some intermittent retrosternal chest pain with exertion.She endorses some dizziness with exertion, but has not gotten faint or passed out. At [facility] she was noted to be afebrile, blood pressure 105/64, HR 120s, satting 95% on 2L NC. Labs from [facility] are below, of note [...] 89/59, which prompted the transfer to us. [facility] labs: CBC - Hgb 10.5 CMP - Cr 1.1 BNP 06536 HsTrop 1358 Lactate 1.6 D-dimer 1183 Interval History Patient was admitted to [facility] due to concern on low BP [...] Klaudia Reid MD Internal Medicine PGY-1 Pager [phone], M1-S1 Service Associated attestation - Juan Luis Gonzalez MD - 05/08/2023 10:00 PM EDT Cardiology Attending Addendum Active Hospital Problems Diagnosis Symptomatic severe aortic stenosis with low ejection fraction Heart failure with reduced ejection fraction due to heart valve disease Mild coronary artery disease by [facility] 11/09/2022 Hyperlipidemia, unspecified History of aortic valve replacement Resolved Hospital Problems No resolved problems to display. I have interviewed and examined the patient, reviewed the available data, and have discussed my findings, assessment and plan with the patient and the team on admission to S2 service (from [facility] service) today. I agree with Dr. [...] PCP: Magdalena Acosta MD PCP phone number: [phone] Date of Admission: 05/08/2023 ( Hospital Day 0 days ) Attending:Enrique Chua MD ID: Purnima Thacker is a 67 y.o. female w/ PMH of s/p bioprosthetic AVR in 2016 with recent concern for severe restenosis, HTN, HLD, mixed connective tissue disease, who presents in transfer from [facility] with worsening BONILLA and [...] four days, which promptedher to present to [facility]. She also endorses some intermittent retrosternal chest pain with exertion. She endorses some dizziness with exertion, but has not gotten faint or passed out. At [facility] she was noted to be afebrile, blood pressure 105/64, HR 120s, satting 95% on 2L NC. Labs from [facility] are below, of note [...] 89/59, which prompted the transfer to us. [facility] labs: CBC - Hgb 10.5 CMP - Cr 1.1 BNP 00940 HsTrop 1358 Lactate 1.6 D-dimer 1183 Vasoactive [...] tissue disease, who presents [facility] BONILLA and weight [...] Lincoln Sal MD Internal Medicine, PGY-1 Cardiology [facility] #[id number] 05/08/23 12:06 PM Cardiology Staff Addendum [...] to the planned procedure. Hand Hygiene: The fabricator assembler metal products did perform hand hygiene prior to arterial [...] Successful arterial line placement. Crispin Timmons MD Communications Tower Technician Associated attestation - Onelia Schwartz MD [...] (flow was non-pulsatile) and appearance of blood. [place]-Marily catheter was placed and locked at 55 [...] information for follow-up [facility], [place] [address] [place] [address] Cardiac Rehab, [facility] [address] [place] [address] [place] [address] [facility], [place] [address] [place] [address] Transportation: family or friend will provide *Brother [...] Type: *No Product type* / Secondary Insurance: [employer] [place] Prescription Coverage: Yes This plan was formulated with input from patient, family (please identify family/friend involved ifapplicable) and team. All are in agreement with plan. Aliza Martino MSN-Ed, RN ACM grove worker Office of Care Management Pager #[phone] * Plan of Care - Favian Mckeon [...] as Appropriate) * Care Management - Lana Chauhdary RN - 05/21/2023 4:46 PM EDTSummary: [facility] referral OFFICE OF CARE MANAGEMENT [...] Type: *No Product type* / Secondary Insurance: [employer] [facility] Last Physical Therapy Recommendation: (Home [...] describing our affiliations within the [facility] and educate about their right to choose where referrals are sent. provide a list of Home Health Agencies / Durable Medical Equipment vendors which serve their preferred geographic area. They have requested referrals to: [facility] [address] [place] [id number] [facility] [place] Note routed to a Co Teacher who will communicate referrals to facilities and provide any required information. Transportation: family or friend will provide *Brother Raymond on Tuesday 05/22 at 1000 Barriers to discharge: Does not have home 22/02 assist available until tomorrow Tuesday 05/22 Plan going forward: Discharge home into the 22/02 home care of brother Raymond with [facility] and [facility] PT/OT services on Tuesday 05/22 [...] Attending: All Staff: Staff Role Juanita Almaguer Printer Slotter Helper Laure Ricks PA Physician Bartender Manager Magdalena Rodriguez salon sales consultant Nurse Consuelo Espinoza RN Radiology Nurse Post-operative [...] Type: *No Product type* / Secondary Insurance: [employer] [place] Last Physical Therapy Recommendation: [facility] [...] Office of Care Management letter from the Hull Molder pertaining to rehab referrals. provide a letter describing our affiliations within the [facility] and educate about their right to choose where referrals are sent. provide the CMS Star Quality Rating handout. review the different levels of rehab including SNF, swing, and acute. provide a list of facilities within their preferred geographic area. request that they provide at least three choices for referral. They have requested referrals to: [facility] [address] [place] [address] [facility] ([facility]) [address] [place] [address] (Accepts pts only after exhausting all other local SNF options) [facility] ([facility]) ([facility]) [address] [place] [address] PHONE: [phone] FAX: [phone] [facility] [facility] ([facility]) [facility]) [address] [place] [address] PHONE: [phone] FAX: [phone] Note routed to a Co Teacher who will communicate referrals to facilities and [...] the original note were not included. [facility] NEPHROLOGY/HYPERTENSION CONSULT NOTE PATIENT: Purnima Thacker [...] in her course. She ultimately underwent a yqbhu-tr-eewkv procedure on and tolerated it well (see operative details). [facility] on some pressors [...] 1423 05/12/23 1105 PHART 7.39 7.37 7.34* CHH1TSU 33* 36 42 PO2ART 101 102 73* BBC2LTK 19.5* 20.4 22.1 LACTATEVEN 1.5 1.8 2.8* NCK7ZQB 40 40 40 PFRATIOART2 252 255 182 VBG (Venous Blood Gas) Recent Labs 05/12/23 1557 05/12/23 1423 05/12/23 1105 LACTATEVEN 1.5 1.8 2.8* Mixed Venous Sat Recent Labs 05/12/23 1425 05/12/23 0508 05/12/23 0321 Z7EPJX5 59.9 30.7 32.7 LFT's: Recent Labs 05/14/23 0110 05/13/23 0115 05/12/23 0600 BILITOT 0.4 0.5 0.9 BILIDIR -- 0.3 -- ALBUMIN 3.6 3.0* 3.5 ALKPHOS 86 85 100 ALT 437* 903* 1,174* AST 319* 792* 1,435* No results found for: UPROTCREAT No results found for: TPROTEINPEP, ALBELECT No results found for: MICROALBUR, YVOP91KBM No results found for: HA1C Lab Results Component Value Date CALCIUM 8.5 05/14/2023 PHOS 4.7 (H) 05/08/2023 No results found for: 25OHVITD MICROBIOLOGY: ProcedureComponentValueUnitsDate/TimeUrine culture [[id number]]Collected: 05/11/231921Lab Status: Final resultSpecimen: Clean Catch UrineUpdated: [...] consulted for assessment if this patient needs NURSES MEDICAL ASSISTANTS PHLEBOTOMISTS. Atthis time, we can likely hold off on NURSES MEDICAL ASSISTANTS PHLEBOTOMISTS. Her volume status appears sufficient and her metabolic kanwal angements with mild acidosis is not too profound. Patient does not have significant uremic symptoms. We can hold off for today, but the patient is a high risk candidate for needing NURSES MEDICAL ASSISTANTS PHLEBOTOMISTS in future daysespecially if her Cr curve trends the direction it is for the next several days. S/p Kxvga-uy-Jdhwj TF TAVR: Management per cardiology. On milrinone gtt. PLAN: - Please obtain following diagnostics: renal US, urinalysis, urine prot/Cr ratio, urine albumin/Cr ratio, CK, uric acid, serum osmol, daily VBGs - No acute indications for NURSES MEDICAL ASSISTANTS PHLEBOTOMISTS/dialysis. We will keep close eye on Cr trend, volume status, and metabolics to ensure patient still does not need NURSES MEDICAL ASSISTANTS PHLEBOTOMISTS as she ensues intrinsic renal recovery - [...] M.H.A., M.A. PGY-V Nephrology-Hypertension Fellow Page # [phone] [facility] [address] 2nd floor, Gem Cutter [address] [place] [address] * Care Management - Mario Alberto Olmos [...] Type: *No Product type* / Secondary Insurance: [facility] [place] Plan for discharge is: Home w/o [...] CV at 0945. Was intubated in the dairy [...] Operative Note Patient Name: Purnima Thacker : [id number] MR#: [id number] Case Date: 05/12/2023 Surgeon: Surgeon(s) and Role: [...] procedure Note: Patient Name: Purnima Thacker : [id number] MR#: [id number] Case Date: 05/12/2023 Operators Surgeon: Surgeon(s) and [...] main with 4.0 x 30 mm Resolute [place] [facility] Eluting Stent Perclose x1 + Angio-seal 8 Fr x1, RFA Manual pressure, LFA Manual pressure, LFV Endotracheal intubation (performed by cardiac anesthesia) Preliminary findings: Successful right transfemoral TAVR Zyeta-cz-Tfulb with a 23 mm Lai 3 THV. [...] MD, M.Sc. Structural Heart Disease Fellow Pager :[phone] Antelmo Sharma MD Pager [phone] * Op Note - Alirio Hudson MD - 05/12/2023 7:37 AM EDT Preop Diagnosis: Severe aortic stenosis, symptomatic. Postop Diagnosis: Same. Procedure: Transfemoral TAVR procedure with 23mm valve. Surgeon: Alirio Hudson M.D. 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 [address] STRUCTURAL HEART DISEASE CONSULTATION NOTE PRIMARY CARE [...] who had been referred for possible TAVR pbkpw-ph-aezcy evaluation. Her primary symptoms are of dyspnea [...] originally from [place]. 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 PROBLEM LIST: Patient Active Problem List Diagnosis Symptomatic severe aortic stenosis with low ejection fraction Mild coronary artery disease by [facility] 11/09/2022 Heart failure with reduced [...] blood, send to lab ([facility]) Result Value Ref Range Lactate WB 1.8 [...] leads Confirmed by MD Harshil, Enrique Bell ([id number]) on 05/10/2023 8:11:46 AM Assessment and Plan: [...] Antelmo Sharma MD Structural Heart Disease Pager [phone] * Plan of Care - Sarahi Nice RN - 05/10/2023 3:55 AM EDTSumcaydeny: RN Note and Care Plan Sarahi Nice RN assumed care of pt at time of their arrival to room 362 from [facility]. Pt voices shortness of breath at [...] Transfer from another hospital Location: admitted from [facility] Reason for Hospitalization: Critical aortic stenosis, causing symptoms Past medical History: Past Medical History: Diagnosis Date Anemia Hospitalizations Within the Past 30 Days: no previous admission in last 30 days Current Decision-Making Capacity: Self If AD's have not been completed the following surrogate would be surrogate decision maker per [place] surrogate decision making law. (Only good for 180 days) Any patient receiving care in [place] must abide by [place] law. The hierarchy for surrogate decision making [...] (i) The agent with financial power of regulatory attorney or a conservator appointed in accordance [...] Current DME: none Home Address confirmed as: [address] [place] [id number] Social & Family Supports: All names listed [...] Type: *No Product type* / Secondary Insurance: [employer] [facility] [place] ONLY if patient has Medicare A&B - Does this patient have secondary insurance?: Yes ; Prescription Coverage: Yes Preferred Pharmacy: updated to [facility] Status: Patient is a : No Primary Care Provider confirmed: Magdalena Acosta MD [phone] Patient/Caregiver Goals of Treatment: Potential Needs for [...] of a 2 story home with 2 [facility]. Patient is independent with ADL's [...] of care planning. Alie Bradshaw RN, CM Pager-[phone] * Plan of Care - Emily Lucero RN - 05/08/2023 2:54 PM EDT OUTCOME EVALUATION NOTE: OUTCOME SUMMARY: Pt arrived from [facility]. A&O, no c/o pain [...] EST Office Visit H[place] [phone] Markel Borjas MD [facility] [place] [address] 11/02/2024 12:00 PM EDT [place]ointment [place] [phone] 11/02/2024 1:00 PM EDT Office [place] [address] Magdalena Peralta MD [facility] [place] [address] 03/01/2025 4:15 PM EDT Office Visit Dermatology at [address] [address] Marek Bonilla MD [address], [place] [address] Scheduled Referrals Name Type Priority Associated Diagnoses [...] Heart Cath W/Inj L Ventriculography, Img S&I ([id number]) 05/12/2023 7:37 AM EDT Aortic valve stenosis, [...] EST Narrative 07/08/2023 12:26 PM EST [address] [place] [address] ? Echocardiogram Report Name: PURNIMA THACKER ?Study Date: 07/08/2023 10:31 AMBP: 118/60 mmHg ? Patient Location: 4A : 1955 ? Height: 155 cm ? Account: [id number] Age: 67 yrs ? Weight: 74 kg [...] no significant change (post-procedure). Procedure Limited - 48479. Doppler - 85614. Color Doppler - 74386. Satisfactory quality. This study is limited because [...] Note Lee Kincaid MD - 07/08/2023 [address] [place] [address] Echocardiogram Report Name: PURNIMA THACKER Study Date: 310:31 AMBP: 118/60 mmHg Patient Location: 4A : 1955 Height: 155 cm Account: [id number] Age: 67 yrs Weight: 74 kg Gender: [...] is nosignificant change (post-procedure). Procedure Limited - 91935. Doppler - 43081. Color Doppler - 96226. Satisfactoryquality. This study is limited because of [...] EST) Glucose 93 65 - 199 mg/dL [facility] Comment:Diabetes: >=200 mg/d L plus symptoms Blood Urea Nitrogen 19(H) 8 - 18 mg/dL [facility] Creatinine 0.81 0.70 - 1.20 mg/dL [facility] Sodium 142 135 - 145 mmol/L [facility] Potassium 3.8 3.5 - 5.0 mmol/L [facility] Comment: Please note: ??Patients with WBC >100,000 may have falsely elevated Potassium levels. ??For accurate Potassium quantification in these patients send serum separator tube (gold top) for subsequent determinations. ??Contact the Clinical Chemistry Laboratory if there are any questions. Chloride 104 98 - 107 mmol/L [facility] Carbon Dioxide 26 22 - 31 mmol/L [facility] Anion Gap 12 5 - 15 mmol/L [facility] Calcium 10.2 8.5 - 10.5 mg/dL [facility] Protein, Total 7.4 6.1 - 8.0 g/dL [facility] Albumin 4.1 3.2 - 5.2 g/dL [facility] Aspartate Aminotransferase 24 0 - 30 unit/L [facility] Alanine Aminotransferase 12 0 - 30 unit/L [facility] LABORATORY Alkaline Phosphatase 93 35 - 105 unit/L [facility] Bilirubin, Total 0.3 0.2 - 1.3 mg/dL [facility] Est Glomerular Filtration Rate 80 >=60 mL/min/1. 73 m?? [facility] Comment: This patient's [...] Lab Alirio Hudson MD CHEMISTRY ORDERABLE S [facility] [place] [place] [address] * (ABNORMAL) Basic Metabolic Panel (non-fasting) (05/22/2023 3:57 AM EDT) Glucose 88 65 - 199 mg/dL [facility] Comment:Diabetes: >=200 mg/d L plus symptoms Blood Urea Nitrogen 21(H) 8 - 18 mg/dL [facility] Creatinine 0.69(L) 0.70 - 1.20 mg/dL [facility] Sodium 136 135 - 145 mmol/L [facility] Potassium 3.6 3.5 - 5.0 mmol/L [facility] Comment: Please note: ??Patients with WBC >100,000 may have falsely elevated Potassium levels. ??For accurate Potassium quantification in these patients send serum separator tube (gold top) for subsequent determinations. ??Contact the Clinical Chemistry Laboratory if there are any questions. Chloride 102 98 - 107 mmol/L [facility] Carbon Dioxide 23 22 - 31 mmol/L [facility] Anion Gap 11 5 - 15 mmol/L [facility] Calcium 8.6 8.5 - 10.5 mg/dL [facility] Est Glomerular Filtration Rate 95 >=60 mL/min/1. 73 m?? [facility] Comment: This patient's [...] Resulting Agency Comment Spec In Lab Mara Nederland COMMUNITY NUTRITION EDUCATOR CHEMISTRY ORDERABL ES [facility] [place] [address] * (ABNORMAL) Basic Metabolic Panel (non-fasting) (05/21/2023 5:06 AM EDT) Glucose 87 65 - 199 mg/dL [facility] Comment:Diabetes: >=200 mg/d L plus symptoms Blood Urea Nitrogen 25(H) 8 - 18 mg/dL [facility] Creatinine 0.84 0.70 - 1.20 mg/dL [facility] Sodium 136 135 - 145 mmol/L [facility] Potassium 3.6 3.5 - 5.0 mmol/L [facility] Comment: Please note: ??Patients with WBC >100,000 may have falsely elevated Potassium levels. ??For accurate Potassium quantification in these patients send serum separator tube (gold top) for subsequent determinations. ??Contact the Clinical Chemistry Laboratory if there are any questions. Chloride 102 98 - 107 mmol/L [facility] Carbon Dioxide 26 22 - 31 mmol/L [facility] Anion Gap 8 5 - 15 mmol/L [facility] Calcium 8.9 8.5 - 10.5 mg/dL [facility] Est Glomerular Filtration Rate 76 >=60 mL/min/1. 73 m?? [facility] Comment: This patient's [...] Narrative Resulting Agency Comment Spec In Lab [facility] COMMUNITY NUTRITION EDUCATOR CHEMISTRY ORDERABL ES Performing Organization Address [facility] Co de Phone Number [facility] [place] [address] * Lavender Tube HOLD (05/20/2023 2:52 AM EDT) Lavender Hold Sample in lab. [facility] Blood Venous Draw / Unknown 05/20/2023 2:52 AM EDT 05/20/2023 3:04 AM EDT [facility] COMMUNITY NUTRITION EDUCATOR HEMATOLOGY ORDERAB LES Performing Organization Address City/[facility]/ZIP Co de Phone Number [facility] [place] [address] * (ABNORMAL) Basic Metabolic Panel (non-fasting) (05/20/2023 2:52 AM EDT) Glucose 152 65 - 199 mg/dL [facility] Comment:Diabetes: >=200 mg/d L plus symptoms Blood Urea Nitrogen 33(H) 8 - 18 mg/dL [facility] Creatinine 0.82 0.70 - 1.20 mg/dL [facility] Sodium 137 135 - 145 mmol/L [facility] Potassium 3.7 3.5 - 5.0 mmol/L [facility] Comment: Please note: ??Patients with WBC >100,000 may have falsely elevated Potassium levels. ??For accurate Potassium quantification in these patients send serum separator tube (gold top) for subsequent determinations. ??Contact the Clinical Chemistry Laboratory if there are any questions. Chloride 99 98 - 107 mmol/L [facility] Carbon Dioxide 22 22 - 31 mmol/L [facility] Anion Gap 16(H) 5 - 15 mmol/L [facility] Calcium 9.0 8.5 - 10.5 mg/dL [facility] Est Glomerular Filtration Rate 78 >=60 mL/min/1. 73 m?? [facility] Comment: This patient's [...] Agency Comment Spec In Lab Mara Serrano COMMUNITY NUTRITION EDUCATOR CHEMISTRY ORDERABL ES [facility] [place] [address] * (ABNORMAL) Potassium (05/20/2023 2:52 AM EDT) Potassium 3.4(L) 3.5 - 5.0 mmol/L [facility] Comment: Please note: ??Patients with WBC >100,000 may have falsely elevated Potassium levels. ??For accurate Potassium quantification in these patients send serum separator tube (gold top) for subsequent determinations. ??Contact the Clinical Chemistry Laboratory if there are any questions. Blood 05/20/2023 2:52 AM EDT 05/20/2023 3:03 AM EDT Narrative Resulting Agency Comment Spec In Lab Mara Serrano COMMUNITY NUTRITION EDUCATOR CHEMISTRY ORDERABL ES [facility] [place] [address] * XR Chest PA & Lateral (Generic) [...] questions please contact the health primary care nurse that requested your imaging first. [...] have questions please contactthe health primary care nurse that requested your imaging first. Alirio Hudson MD IMG DX ORDERABLES * (ABNORMAL) Basic Metabolic Panel (non-fasting) (05/19/2023 5:49 AM EDT) Glucose 93 65 - 199 mg/dL [facility] Comment:Diabetes: >=200 mg/d L plus symptoms Blood Urea Nitrogen 45(H) 8 - 18 mg/dL [facility] Creatinine 1.02 0.70 - 1.20 mg/dL [facility] Sodium 138 135 - 145 mmol/L [facility] Potassium 3.9 3.5 - 5.0 mmol/L [facility] Comment: Please note: ??Patients with WBC >100,000 may have falsely elevated Potassium levels. ??For accurate Potassium quantification in these patients send serum separator tube (gold top) for subsequent determinations. ??Contact the Clinical Chemistry Laboratory if there are any questions. Chloride 102 98 - 107 mmol/L [facility] Carbon Dioxide 26 22 - 31 mmol/L [facility] Anion Gap 10 5 - 15 mmol/L [facility] Calcium 9.7 8.5 - 10.5 mg/dL [facility] Est Glomerular Filtration Rate 60 >=60 mL/min/1. 73 m?? [facility] Comment: This patient's [...] Agency Comment Spec In Lab Mara Serrano COMMUNITY NUTRITION EDUCATOR CHEMISTRY ORDERABL ES [facility] [place] [address] * IR Chest Tube Placement Right (05/18/2023 [...] Kristopher Salgado MD 05/18/2023 Alirio Hudson MD [facility] IR ORDERABLES * (ABNORMAL) Basic Metabolic Panel (non-fasting) (05/18/2023 2:54 AM EDT) Glucose 95 65 - 199 mg/dL [facility] Comment:Diabetes: >=200 mg/d L plus symptoms Blood Urea Nitrogen 71(H) 8 - 18 mg/dL [facility] Comment:result rechecked-[facility] Creatinine 1.64(H) 0.70 - 1.20 mg/dL [facility] Comment:result rechecked-[facility] Sodium 137 135 - 145 mmol/L [facility] Potassium 3.7 3.5 - 5.0 mmol/L [facility] Comment: Please note: ??Patients with WBC >100,000 may have falsely elevated Potassium levels. ??For accurate Potassium quantification in these patients send serum separator tube (gold top) for subsequent determinations. ??Contact the Clinical Chemistry Laboratory if there are any questions. Chloride 100 98 - 107 mmol/L [facility] Carbon Dioxide 24 22 - 31 mmol/L [facility] Anion Gap 13 5 - 15 mmol/L [facility] Calcium 9.7 8.5 - 10.5 mg/dL [facility] Est Glomerular Filtration Rate 34(L) >=60 mL/min/1. 73 m?? [facility] Comment: This patient's [...] Agency Comment Spec In Lab Mara Maggie COMMUNITY NUTRITION EDUCATOR CHEMISTRY ORDERABL ES [facility] [place] [address] * XR Chest PA & Lateral (Generic) [...] questions please contact the health primary care nurse that requested your imaging first. ? Electronically signed by: Ghassan Reyes MD, [facility] ??([phone]), at 05/17/2023 11:46 AM Narrative 05/17/2023 11:46 [...] have questions please contactthe health primary care nurse that requested your imaging first. Electronically signed by: Ghassan Reyes MD, [facility]([phone]), at 05/17/2023 11:46 AM Alirio Hudson MD IMG DX ORDERABLES * (ABNORMAL) Comprehensive metabolic panel (non-fasting) (05/17/2023 4:35 AM EDT) Glucose 89 65 - 199 mg/dL [facility] Comment:Diabetes: >=200 mg/d L plus symptoms Blood Urea Nitrogen 97(H) 8 - 18 mg/dL [facility] Creatinine 2.97(H) 0.70 - 1.20 mg/dL [facility] Comment:result rechecked-JSJ Sodium 135 135 - 145 mmol/L [facility] Potassium 4.1 3.5 - 5.0 mmol/L [facility] Comment: Please note: ??Patients with WBC >100,000 may have falsely elevated Potassium levels. ??For accurate Potassium quantification in these patients send serum separator tube (gold top) for subsequent determinations. ??Contact the Clinical Chemistry Laboratory if there are any questions. Chloride 97(L) 98 - 107 mmol/L [facility] Carbon Dioxide 22 22 - 31 mmol/L [facility] Anion Gap 16(H) 5 - 15 mmol/L [facility] Calcium 9.6 8.5 - 10.5 mg/dL [facility] Protein, Total 6.5 6.1 - 8.0 g/dL [facility] Albumin 3.7 3.2 - 5.2 g/dL [facility] Aspartate Aminotransferase 58(H) 0 - 30 unit/L [facility] Alanine Aminotransferase 66(H) 0 - 30 unit/L [facility] Alkaline Phosphatase 86 35 - 105 unit/L [facility] Bilirubin, Total 0.6 0.2 - 1.3 mg/dL [facility] Est Glomerular Filtration Rate 17(L) >=60 mL/min/1. 73 m?? [facility] Comment: This patient's [...] CHEMISTRY ORDERABLE S Performing Organization Address [facility] Co de Phone Number [facility] [place] [address] * Potassium (05/16/2023 11:15 PM EDT) Potassium 3.7 3.5 - 5.0 mmol/L [facility] Comment: Please note: [...] CHEMISTRY ORDERABLE S Performing Organization Address [facility] Co de Phone Number [facility] [place] [address] * Magnesium (05/16/2023 5:22 PM EDT) Pathologist [facility] Magnesium 0.96 0.69 - 1.07 mmol/L [facility] Blood 05/16/2023 5:22 PM EDT 05/16/2023 5:27 PM EDT Narrative Resulting Agency Comment Spec In Lab Alirio Hudson MD CHEMISTRY ORDERABLE S Performing Organization Address [facility] Co de Phone Number [facility] [place] [address] * (ABNORMAL) Basic Metabolic Panel (non-fasting) (05/16/2023 5:22 PM EDT) Glucose 106 65 - 199 mg/dL [facility] Comment:Diabetes: >=200 mg/d L plus symptoms Blood Urea Nitrogen 103(H) 8 - 18 mg/dL [facility] Creatinine 3.91(H) 0.70 - 1.20 mg/dL [facility] Comment:result rechecked-imm Sodium 132(L) 135 - 145 mmol/L [facility] Potassium 3.6 3.5 - 5.0 mmol/L [facility] Comment: Please note: ??Patients with WBC >100,000 may have falsely elevated Potassium levels. ??For accurate Potassium quantification in these patients send serum separator tube (gold top) for subsequent determinations. ??Contact the Clinical Chemistry Laboratory if there are any questions. Chloride 92(L) 98 - 107 mmol/L [facility] Carbon Dioxide 22 22 - 31 mmol/L [facility] Anion Gap 18(H) 5 - 15 mmol/L [facility] Calcium 9.7 8.5 - 10.5 mg/dL [facility] Est Glomerular Filtration Rate 12(L) >=60 mL/min/1. 73 m?? [facility] Comment: This patient's [...] Lab Alirio Hudson MD CHEMISTRY ORDERABLE S [facility] [place] [address] * (ABNORMAL) Potassium (05/16/2023 11:43 AM EDT) Potassium 3.3(L) 3.5 - 5.0 mmol/L [facility] Comment: Please note: [...] Lab Alirio Hudson MD CHEMISTRY ORDERABLE S [facility] [place] [address] * (ABNORMAL) Ferritin (05/16/2023 4:41 AM EDT) Pathologist [facility] Ferritin 1,813(H) 30 - 400 ng/mL [facility] Comment: Pediatric reference ranges not verified at [facility] interpret with caution. Reference ranges for females greater than 50 years of age approach values for men, i.e., 30-400 ng/mL. Blood 05/16/2023 4:41 AM EDT 05/16/2023 4:54 AM EDT Narrative Resulting Agency Comment Spec In Lab Kristopher Ayoub MD CHEMISTRY ORDERABLES [facility] [place] [address] * (ABNORMAL) PTH (05/16/2023 4:41 AM EDT) [facility] Parathyroid Hormone 120(H) 15 - 65 pg/mL [facility] Blood 05/16/2023 4:41 AM EDT 05/16/2023 4:54 AM EDT Narrative Resulting Agency Comment Spec In Lab Kristopher Ayoub MD CHEMISTRY ORDERABLES [facility] [place] [address] * Vitamin D, 25-Hydroxy (05/16/2023 4:41 AM EDT) [facility] Vitamin D Total 25 OH 33 21 - 100 ng/mL [facility] Vit D Interp Sufficient [facility] Blood 05/16/2023 4:41 AM EDT 05/16/2023 4:54 AM EDT Narrative Resulting Agency Comment Spec In Lab Kristopher Ayoub MD CHEMISTRY ORDERABLES [facility] [place] [address] * (ABNORMAL) Blood Gas Venous ([facility]) (05/16/2023 4:22 AM EDT) pH, Venous 7.41 7.32 - 7.42 [facility] PCO2, Venous 32(L) 41 - 51 mmHg [facility] PO2, Venous 73(H) 25 - 40 mmHg [facility] Bicarbonate, Venous 19.6 mmol/L [facility] Base Excess, Venous -5.1 mmol/L [facility] Hgb Blood Gas 9.7(L) 11.7 - 15.5 g/dL [facility] Oxyhemoglobin, Venous 92.8 % [facility] Carboxyhemoglob in, Venous 0.1 % [facility] Comment: Nonsmokers: 0.5-1.5% COHB Smokers: Variable, but usually less than 10% Toxic: 20-30% COHB Lethal: Greater than 60% COHB Methemoglobin, Venous 0.3 <=1.5 % [facility] Na Whole Blood 130(L) 135 - 145 mmol/L [facility] K Whole Blood 3.7 3.5 - 5.0 mmol/L [facility] Comment: Please note: Patients with WBC >100,000 may have falsely elevated Potassium levels. Contact the Clinical Chemistry Laboratory if there are any questions. ICa Whole Blood 1.15 1.15 - 1.33 mmol/L [facility] Comment: Note: ??Total bilirubin higher than 20 mg/dL may lead to falsely low ionized calcium. CL Whole Blood 95(L) 98 - 107 mmol/L [facility] Gluc Whole Bld 82 65 - 199 mg/dL [facility] Comment:Diabetes: >=200 mg/d L plus symptoms Lactate WB 1.1 0.5 - 2.2 mmol/L [facility] Blood Gas Source Venous [facility] Blood Venous Draw / Unknown 05/16/2023 4:22 AM EDT 05/16/2023 4:31 AM EDT Narrative Resulting Agency Comment Spec In Lab Bonita TOBAR CHEMISTRY ORDERABLES [facility] [place] [address] * (ABNORMAL) Differential, Automated (05/16/2023 4:20 AM EDT) Neutrophil % 84.1 % [facility] Neutrophil Absolute 6.22(H) 1.70 - 6.10 x10(3)/mc L [facility] Lymph % 5.8 % [facility] Lymphocytes Abs 0.4(L) 0.9 - 3.2 x10(3)/mc L [facility] Monocyte % 8.8 % [facility] Monocyte Abs 0.6 0.3 - 0.9 x10(3)/mc L [facility] Eos % 0.4 % [facility] Eosinophils Abs 0.0 0.0 - 0.4 x10(3)/mc L [facility] Basophil % 0.0 % [facility] Baso Absolute 0.0 0.0 - 0.1 x10(3)/mc L [facility] Immature Gran % 0.90 % [facility] Comment: Immature granulocytes(IG's)percentage and absolute count will include metamyelocytes, myelocytes, and promyelocytes. Blood smears from CBCs yielding IG's will be scanned manually for concordance. If this scan disagrees with the automated IG or if promyelocytes are noted, a manual differential will be performed. Immature Gran Absolute 0.07(H) 0.00 - 0.04 x10(3)/mc L [facility] Blood 05/16/2023 4:20 AM EDT 05/16/2023 4:29 AM EDT Narrative Resulting Agency Comment Spec In Lab James Agustin MD HEMATOLOGY ORDER JODIE Performing Organization Address City/[facility]/ZIP Co de Phone Number [facility] [place] [address] * (ABNORMAL) Hemogram (05/16/2023 4:20 AM EDT) White Blood Cell 7.4 4.0 - 9.5 x10(3)/mc L [facility] Red Blood Cell 2.40(L) 4.00 - 5.21 x10(6)/mc L [facility] Hemoglobin 7.8(L) 11.7 - 15.5 g/dL [facility] Hematocrit 22.5(L) 35.7 - 45.8 % [facility] Mean Cell Volume 93.8 82.6 - 94.4 fL [facility] Mean Cell Hemoglobin 32.5(H) 27.1 - 32.0 pg [facility] Mean Cell Hemoglobin Concentration 34.7 31.7 - 35.0 g/dL [facility] Platelet 120(L) 145 - 357 x10(3)/mc L [facility] RDW Standard Deviation 42.9 37.0 - 46.0 fL [facility] RDW coefficient of variation 12.9 11.5 - 14.1 % [facility] Mean Platelet Volume 11.3 7.6 - 12.9 fL [facility] NRBC% auto 0.7 % [facility] NRBC Absolute 0.050(H) 0.000 - 0.000 x10(3)/ L [facility] Blood 05/16/2023 4:20 AM EDT 05/16/2023 4:29 AM EDT Narrative Resulting Agency Comment Spec In Lab James Agustin MD HEMATOLOGY ORDER JODIE [facility] [place] [address] * (ABNORMAL) Basic Metabolic Panel (non-fasting) (05/16/2023 4:20 AM EDT) Glucose 89 65 - 199 mg/dL [facility] Comment:Diabetes: >=200 mg/d L plus symptoms Blood Urea Nitrogen 108(H) 8 - 18 mg/dL [facility] Creatinine 4.74(H) 0.70 - 1.20 mg/dL [facility] Comment:result rechecked-OLIVA Sodium 132(L) 135 - 145 mmol/L [facility] Potassium 3.9 3.5 - 5.0 mmol/L [facility] Comment: Please note: ??Patients with WBC >100,000 may have falsely elevated Potassium levels. ??For accurate Potassium quantification in these patients send serum separator tube (gold top) for subsequent determinations. ??Contact the Clinical Chemistry Laboratory if there are any questions. Chloride 95(L) 98 - 107 mmol/L [facility] Carbon Dioxide 18(L) 22 - 31 mmol/L [facility] Anion Gap 19(H) 5 - 15 mmol/L [facility] Calcium 9.2 8.5 - 10.5 mg/dL [facility] Est Glomerular Filtration Rate 10(L) >=60 mL/min/1. 73 m?? [facility] Comment: This patient's [...] Lab Alirio Hudson MD CHEMISTRY ORDERABLE S [facility] [place] [address] * (ABNORMAL) Iron and TIBC (05/16/2023 4:20 AM EDT) Iron 31 30 - 150 mcg/dL [facility] TIBC 259 250 - 450 mcg/dL [facility] Iron Saturation 12(L) 20 - 50 % [facility] Blood 05/16/2023 4:20 AM EDT 05/16/2023 4:29 AM EDT Narrative Resulting Agency Comment Spec In Lab Kristopher Ayoub MD CHEMISTRY ORDERABLES [facility] [place] [address] * (ABNORMAL) Basic Metabolic Panel (non-fasting) (05/15/2023 12:50 AM EDT) Glucose 101 65 - 199 mg/dL [facility] Comment:Diabetes: >=200 mg/d L plus symptoms Blood Urea Nitrogen 109(H) 8 - 18 mg/dL [facility] Creatinine 5.62(H) 0.70 - 1.20 mg/dL [facility] Comment:result rechecked-[place] Sodium 131(L) 135 - 145 mmol/L [facility] Comment:result rechecked-[place] Potassium 3.7 3.5 - 5.0 mmol/L [facility] Comment: result rechecked-KS Please note: ??Patients with WBC >100,000 may have falsely elevated Potassium levels. ??For accurate Potassium quantification in these patients send serum separator tube (gold top) for subsequent determinations. ??Contact the Clinical Chemistry Laboratory if there are any questions. Chloride 92(L) 98 - 107 mmol/L [facility] Comment:result rechecked-[place] Carbon Dioxide 18(L) 22 - 31 mmol/L [facility] Comment:result rechecked-[place] Anion Gap 21(H) 5 - 15 mmol/L [facility] Calcium 8.9 8.5 - 10.5 mg/dL [facility] Est Glomerular Filtration Rate 8(L) >=60 mL/min/1. 73 m?? [facility] Comment: This patient's [...] [facility]/ZIP Co de Phone Number [facility] [place] [address] * (ABNORMAL) Hemogram (05/15/2023 12:50 AM EDT) White Blood Cell 9.1 4.0 - 9.5 x10(3)/mc L [facility] Red Blood Cell 2.19(L) 4.00 - 5.21 x10(6)/mc L [facility] Hemoglobin 7.2(L) 11.7 - 15.5 g/dL [facility] Hematocrit 20.6(L) 35.7 - 45.8 % [facility] Mean Cell Volume 94.1 82.6 - 94.4 fL [facility] Mean Cell Hemoglobin 32.9(H) 27.1 - 32.0 pg [facility] Mean Cell Hemoglobin Concentration 35.0 31.7 - 35.0 g/dL [facility] LABORATORY Platelet 109(L) 145 - 357 x10(3)/mc L [facility] RDW Standard Deviation 43.6 37.0 - 46.0 fL [facility] RDW coefficient of variation 12.9 11.5 - 14.1 % [facility] Mean Platelet Volume 10.4 7.6 - 12.9 fL [facility] NRBC% auto 2.1 % [facility] NRBC Absolute 0.190(H) 0.000 - 0.000 x10(3)/mc L [facility] Blood 05/15/2023 12:5 0 AM EDT 05/15/2023 12:52 AM EDT Narrative Resulting Agency Comment Spec In Lab Alirio Husdon MD HEMATOLOGY ORDERABL ES Performing Organization Address [facility] Co de Phone Number [facility] [place] [address] * (ABNORMAL) BLOOD GAS 2 VENOUS (05/15/2023 12:49 AM EDT) pH, Venous 7.33 7.32 - 7.42 [facility] PCO2, Venous 37(L) 41 - 51 mmHg [facility] PO2, Venous 34 25 - 40 mmHg [facility] Bicarbonate, Venous 19.1 mmol/L [facility] Base Excess, Venous -6.8 mmol/L [facility] Hgb Blood Gas 10.8(L) 11.7 - 15.5 g/dL [facility] Oxyhemoglobin, Venous 58.1 % [facility] Carboxyhemoglob in, Venous 0.3 % [facility] Comment: Nonsmokers: 0.5-1.5% COHB Smokers: Variable, but usually less than 10% Toxic: 20-30% COHB Lethal: Greater than 60% COHB Methemoglobin, Venous 0.6 <=1.5 % [facility] Na Whole Blood 136 135 - 145 mmol/L [facility] K Whole Blood 3.7 3.5 - 5.0 mmol/L [facility] Comment: Please note: Patients with WBC >100,000 may have falsely elevated Potassium levels. Contact the Clinical Chemistry Laboratory if there are any questions. ICa Whole Blood 1.12(L) 1.15 - 1.33 mmol/L [facility] Comment: Note: ??Total bilirubin higher than 20 mg/dL may lead to falsely low ionized calcium. CL Whole Blood 95(L) 98 - 107 mmol/L [facility] Gluc Whole Bld 101 65 - 199 mg/dL [facility] Comment:Diabetes: >=200 mg/d L plus symptoms Lactate WB 1.3 0.5 - 2.2 mmol/L [facility] Flow, Mike 1.0 LPM [facility] Blood Gas Source Venous [facility] Blood 05/15/2023 12:4 9 AM EDT 05/15/2023 12:49 AM EDT Alirio Hudson MD POINT OF CARE TEST ORDERABLES [facility] [address] [place] [address] * US Retroperitoneal Complete (05/14/2023 3:53 PM [...] PM Electronically signed by: Hayden Robledo MD, [facility] ([phone]), at 05/14/2023 4:32 PM Thank you for letting us participate in the care of this patient. If you are a health care provider and have any questions regarding this report, please contact the number above. For patients who have questions, please contact the health primary care nurse that requested your imaging first. ? Hayden Robledo, Staff Physician Electronically Signed Final Report ?? 05/14/2023 04:39 pm Narrative 05/14/2023 4:39 PM EDT Renal ? (Signed Final 05/14/2023 04:39 pm) PATIENT INFO: ID #: ? [id number] ?: ??[birth year] (67 yrs)(F) Name: ? PURNIMA Magalie KIRSTIE ?Visit Date: 05/14/2023 03:44 pm PERFORMED BY: Attending: ?Meena CULP, Hayden Stafford Resident: ? Barnacle MD, Anand D. Performed By: ? Pyote RDMS, Consuelo Referred By: ?ALIRIO HUDSON Location: ? [place] SERVICE(S) PROVIDED: URETRO - Retroperitoneal Complete - [id number] ? [id number] INDICATIONS: EVANS COMPARISON: CT: Abdomen/Pelvis 05/11/23 RIGHT [...] 05/14/2023 04:39 pm) PATIENT INFO: ID #: [id number] : [birth year] (67 yrs)(F) Name: PURNIMA THACKER Visit Date: 05/14/2023 03:44 pm PERFORMED BY: Attending: Hayden Robledo MD Resident: Anand Camejo MD Performed By: Consuelo Tello RDMS Referred By: ALIRIO HUDSON Location: [place] SERVICE(S) PROVIDED: URETRO - Retroperitoneal Complete - [id number] INDICATIONS: EVANS COMPARISON: CT: Abdomen/Pelvis 05/11/23 RIGHT [...] PM Electronically signed by: Hayden Robledo MD, [facility] ([phone]), at 05/14/2023 4:32 PM Thank you for letting us participate in the care of this patient. If you are a health care provider and have any questions regarding this report, please contact the number above. For patients who have questions, please contact the health primary care nurse that requested your imaging first. Hayden Robledo, Staff Physician Electronically Signed Final Report 05/14/2023 04:39 pm Alirio Hudson MD IMG US GEN ORDERABL ES * CK (05/14/2023 3:17 PM EDT) Creatine Kinase 123 0 - 160 unit/L [facility] Blood 05/14/2023 3:17 PM EDT 05/14/2023 3:31 PM EDT Narrative Resulting Agency Comment Spec In Lab Alirio Hudson MD CHEMISTRY ORDERABLE S Performing Organization Address [facility] Co de Phone Number [facility] [place] [address] * (ABNORMAL) Uric acid (05/14/2023 3:17 PM EDT) Uric Acid 14.9(H) 2.5 - 6.5 mg/dL [facility] Blood 05/14/2023 3:17 PM EDT 05/14/2023 3:31 PM EDT Narrative Resulting Agency Comment Spec In Lab Alirio Hudson MD CHEMISTRY ORDERABLE S Performing Organization Address [facility] Co de Phone Number [facility] [place] [address] * (ABNORMAL) Osmolality (05/14/2023 3:17 PM EDT) Osmolality 311(H) 275 - 295 mOsm/kg [facility] Blood 05/14/2023 3:17 PM EDT 05/14/2023 3:31 PM EDT Narrative Resulting Agency Comment Spec In Lab Alirio Hudson MD CHEMISTRY ORDERABLE S [facility] [place] [address] * (ABNORMAL) Differential, Automated (05/14/2023 1:10 AM EDT) Neutrophil % 87.2 % [facility] Neutrophil Absolute 9.74(H) 1.70 - 6.10 x10(3)/mc L [facility] Lymph % 3.9 % [facility] Lymphocytes Abs 0.4(L) 0.9 - 3.2 x10(3)/mc L [facility] Monocyte % 7.9 % [facility] Monocyte Abs 0.9 0.3 - 0.9 x10(3)/mc L [facility] Eos % 0.0 % [facility] Eosinophils Abs 0.0 0.0 - 0.4 x10(3)/mc L [facility] Basophil % 0.1 % [facility] Baso Absolute 0.0 0.0 - 0.1 x10(3)/mc L [facility] Immature Gran % 0.90 % [facility] Comment: Immature granulocytes(IG's)percentage and absolute count will include metamyelocytes, myelocytes, and promyelocytes. Blood smears from CBCs yielding IG's will be scanned manually for concordance. If this scan disagrees with the automated IG or if promyelocytes are noted, a manual differential will be performed. Immature Gran Absolute 0.10(H) 0.00 - 0.04 x10(3)/mc L [facility] Blood 05/14/2023 1:10 AM EDT 05/14/2023 1:24 AM EDT Narrative Resulting Agency Comment Spec In Lab Bonita TOBAR HEMATOLOGY ORDERABLE S [facility] [place] [address] * (ABNORMAL) Hemogram (05/14/2023 1:10 AM EDT) White Blood Cell 11.2(H) 4.0 - 9.5 x10(3)/mc L [facility] Red Blood Cell 2.19(L) 4.00 - 5.21 x10(6)/mc L [facility] Hemoglobin 7.2(L) 11.7 - 15.5 g/dL [facility] Hematocrit 20.3(L) 35.7 - 45.8 % [facility] Mean Cell Volume 92.7 82.6 - 94.4 fL [facility] Mean Cell Hemoglobin 32.9(H) 27.1 - 32.0 pg [facility] Mean Cell Hemoglobin Concentration 35.5(H) 31.7 - 35.0 g/dL [facility] Platelet 112(L) 145 - 357 x10(3)/mc L [facility] RDW Standard Deviation 41.4 37.0 - 46.0 fL [facility] RDW coefficient of variation 12.5 11.5 - 14.1 % [facility] Mean Platelet Volume 10.4 7.6 - 12.9 fL [facility] NRBC% auto 1.5 % [facility] NRBC Absolute 0.170(H) 0.000 - 0.000 x10(3)/mc L [facility] Blood 05/14/2023 1:10 AM EDT 05/14/2023 1:24 AM EDT Narrative Resulting Agency Comment Spec In Lab Bonita TOBAR HEMATOLOGY ORDERABLE S [facility] [place] [address] * (ABNORMAL) Comprehensive metabolic panel (non-fasting) (05/14/2023 1:10 AM EDT) Glucose 120 65 - 199 mg/dL [facility] Comment:Diabetes: >=200 mg/d L plus symptoms Blood Urea Nitrogen 98(H) 8 - 18 mg/dL [facility] Creatinine 4.80(H) 0.70 - 1.20 mg/dL [facility] Comment:result rechecked-ssc Sodium 132(L) 135 - 145 mmol/L [facility] Potassium 4.1 3.5 - 5.0 mmol/L [facility] Comment: Please note: ??Patients with WBC >100,000 may have falsely elevated Potassium levels. ??For accurate Potassium quantification in these patients send serum separator tube (gold top) for subsequent determinations. ??Contact the Clinical Chemistry Laboratory if there are any questions. Chloride 94(L) 98 - 107 mmol/L [facility] Carbon Dioxide 18(L) 22 - 31 mmol/L [facility] Anion Gap 20(H) 5 - 15 mmol/L [facility] Calcium 8.5 8.5 - 10.5 mg/dL [facility] Protein, Total 5.8(L) 6.1 - 8.0 g/dL [facility] Albumin 3.6 3.2 - 5.2 g/dL [facility] Aspartate Aminotransferase 319(H) 0 - 30 unit/L [facility] Alanine Aminotransferase 437(H) 0 - 30 unit/L [facility] Alkaline Phosphatase 86 35 - 105 unit/L [facility] Bilirubin, Total 0.4 0.2 - 1.3 mg/dL [facility] Est Glomerular Filtration Rate 9(L) >=60 mL/min/1. 73 m?? [facility] Comment: This patient's [...] CHEMISTRY ORDERABLE S Performing Organization Address [facility] Co de Phone Number [facility] [place] [address] * APTT (05/13/2023 10:15 AM EDT) Partial Thromboplastin Time 27 25 - 37 sec [facility] Comment: The PTT [...] HEMATOLOGY ORDERABL ES Performing Organization Address [facility] Co de Phone Number [facility] [place] [address] * (ABNORMAL) Prothrombin Time (05/13/2023 10:15 AM EDT) Prothrombin Time 14.6(H) 9.4 - 12.5 sec [facility] International Normalization Ratio 1.3 [facility] Comment: An INR [...] HEMATOLOGY ORDERABL ES Performing Organization Address [facility] Co de Phone Number [facility] [place] [address] * EKG 12 Lead (05/13/2023 9:22 AM EDT) Ventricular rate 92 BPM MUSE SYSTEM Atrial Rate 92 BPM MUSE SYSTEM P-R Interval 140 ms MUSE SYSTEM QRS Duration 104 ms MUSE SYSTEM Q-T Interval 384 ms MUSE SYSTEM QTC Calculated (Bezet) 474 ms MUSE SYSTEM Calculated P Mcalpin 33 degrees MUSE SYSTEM Calculated R Mcalpin 41 degrees MUSE SYSTEM Calculated T Mcalpin -35 degrees MUSE SYSTEM INTERPRETATION Sinus rhythm with frequent Premature ventricular complexes Septal infarct , age undetermined ST & T wave abnormality, consider lateral ischemia Abnormal ECG When compared with ECG of 12-MAY-2023 10:10, Premature ventricular complexes are now Present I personally reviewed the tracing and edited the fellows interpretation Confirmed by fellow MD Anitha, Carissa ([id number]) on 05/13/2023 3:25:30 PM Confirmed by Maxx Best ([id number]) on 05/13/2023 8:30:56 PM MUSE SYSTEM 05/13/2023 9:22 AM EDT 05/13/2023 8:30 PM EDT Alirio Hudson MD ECG ORDERABLES MUSE SYSTEM * (ABNORMAL) Differential, Automated (05/13/2023 1:15 AM EDT) Neutrophil % 88.1 % [facility] Neutrophil Absolute 7.62(H) 1.70 - 6.10 x10(3)/mc L [facility] Lymph % 3.1 % [facility] Lymphocytes Abs 0.3(L) 0.9 - 3.2 x10(3)/mc L [facility] Monocyte % 7.9 % [facility] Monocyte Abs 0.7 0.3 - 0.9 x10(3)/mc L [facility] Eos % 0.0 % [facility] Eosinophils Abs 0.0 0.0 - 0.4 x10(3)/mc L [facility] Basophil % 0.1 % [facility] Baso Absolute 0.0 0.0 - 0.1 x10(3)/mc L [facility] Immature Gran % 0.80 % [facility] Comment: Immature granulocytes(IG's)percentage and absolute count will include metamyelocytes, myelocytes, and promyelocytes. Blood smears from CBCs yielding IG's will be scanned manually for concordance. If this scan disagrees with the automated IG or if promyelocytes are noted, a manual differential will be performed. Immature Gran Absolute 0.07(H) 0.00 - 0.04 x10(3)/mc L [facility] Blood 05/13/2023 1:15 AM EDT 05/13/2023 1:29 AM EDT Narrative Resulting Agency Comment Spec In Lab Lorri TOBAR HEMATOLOGY ORDERABLE S [facility] [place] [address] * (ABNORMAL) Hemogram (05/13/2023 1:15 AM EDT) White Blood Cell 8.6 4.0 - 9.5 x10(3)/mc L [facility] Red Blood Cell 2.37(L) 4.00 - 5.21 x10(6)/mc L [facility] Hemoglobin 7.8(L) 11.7 - 15.5 g/dL [facility] Hematocrit 22.2(L) 35.7 - 45.8 % [facility] Mean Cell Volume 93.7 82.6 - 94.4 fL [facility] Mean Cell Hemoglobin 32.9(H) 27.1 - 32.0 pg [facility] Mean Cell Hemoglobin Concentration 35.1(H) 31.7 - 35.0 g/dL [facility] Platelet 130(L) 145 - 357 x10(3)/mc L [facility] RDW Standard Deviation 41.7 37.0 - 46.0 fL [facility] RDW coefficient of variation 12.5 11.5 - 14.1 % [facility] Mean Platelet Volume 10.2 7.6 - 12.9 fL [facility] NRBC% auto 0.5 % [facility] NRBC Absolute 0.040(H) 0.000 - 0.000 x10(3)/mc L [facility] Blood 05/13/2023 1:15 AM EDT 05/13/2023 1:29 AM EDT Narrative Resulting Agency Comment Spec In Lab Lorri TOBAR HEMATOLOGY ORDERABLE S Performing Organization Address City/[facility]/ZIP Co de Phone Number [facility] [place] [address] * (ABNORMAL) Hepatic Function Panel (05/13/2023 1:15 AM EDT) Protein, Total 5.5(L) 6.1 - 8.0 g/dL [facility] Albumin 3.0(L) 3.2 - 5.2 g/dL [facility] Aspartate Aminotransferase 792(H) 0 - 30 unit/L [facility] Alanine Aminotransferase 903(H) 0 - 30 unit/L [facility] Alkaline Phosphatase 85 35 - 105 unit/L [facility] Bilirubin, Total 0.5 0.2 - 1.3 mg/dL [facility] Bilirubin, Direct 0.3 0.0 - 0.3 mg/dL [facility] Blood 05/13/2023 1:15 AM EDT 05/13/2023 1:29 AM EDT Narrative Resulting Agency Comment Spec In Lab Alirio Hudson MD CHEMISTRY ORDERABLE S Performing Organization Address [facility] Co de Phone Number [facility] [place] [address] * (ABNORMAL) Basic Metabolic Panel (non-fasting) (05/13/2023 1:15 AM EDT) Pathologist [facility] Glucose 107 65 - 199 mg/dL [facility] Comment:Diabetes: >=200 mg/d L plus symptoms Blood Urea Nitrogen 82(H) 8 - 18 mg/dL [facility] Creatinine 3.15(H) 0.70 - 1.20 mg/dL [facility] Comment:result rechecked-OG Sodium 132(L) 135 - 145 mmol/L [facility] Potassium 3.8 3.5 - 5.0 mmol/L [facility] Comment: Please note: ??Patients with WBC >100,000 may have falsely elevated Potassium levels. ??For accurate Potassium quantification in these patients send serum separator tube (gold top) for subsequent determinations. ??Contact the Clinical Chemistry Laboratory if there are any questions. Chloride 95(L) 98 - 107 mmol/L [facility] Carbon Dioxide 20(L) 22 - 31 mmol/L [facility] Anion Gap 17(H) 5 - 15 mmol/L [facility] Calcium 8.3(L) 8.5 - 10.5 mg/dL [facility] Est Glomerular Filtration Rate 16(L) >=60 mL/min/1. 73 m?? [facility] Comment: This patient's [...] [facility] Co de Phone Number [facility] [place] [address] * (ABNORMAL) BLOOD GAS 2 ARTERIAL (05/12/2023 3:57 PM EDT) pH, Arterial 7.39 7.35 - 7.45 [facility] PCO2, Arterial 33(L) 35 - 45 mmHg [facility] PO2, Arterial 101 85 - 104 mmHg [facility] Bicarbonate, Arterial 19.5(L) 20.0 - 26.0 mmol/L [facility] Base Excess, Arterial -5.5(L) -3.0 - 3.0 mmol/L [facility] Hgb Blood Gas 9.8(L) 11.7 - 15.5 g/dL [facility] Oxyhemoglobin, Arterial 95.2 94.0 - 97.0 % [facility] Carboxyhemoglob in, Arterial 0.2 % [facility] Comment: Nonsmokers: 0.5-1.5% COHB Smokers: Variable, but usually less than 10% Toxic: 20-30% COHB Lethal: Greater than 60% COHB Methemoglobin, Arterial 0.8 <=1.5 % [facility] Na Whole Blood 129(L) 135 - 145 mmol/L [facility] K Whole Blood 3.8 3.5 - 5.0 mmol/L [facility] Comment: Please note: Patients with WBC >100,000 may have falsely elevated Potassium levels. Contact the Clinical Chemistry Laboratory if there are any questions. ICa Whole Blood 1.05(L) 1.15 - 1.33 mmol/L [facility] Comment: Note: ??Total bilirubin higher than 20 mg/dL may lead to falsely low ionized calcium. CL Whole Blood 96(L) 98 - 107 mmol/L [facility] Gluc Whole Bld 178 65 - 199 mg/dL [facility] Comment:Diabetes: >=200 mg/d L plus symptoms. Lactate WB 1.5 0.5 - 2.2 mmol/L [facility] FIO2 Art 40 % [facility] PF Ratio Art 252 [facility] Blood 05/12/2023 3:57 PM EDT 05/12/2023 3:57 PM EDT Alirio Hudson MD POINT OF CARE TEST ORDERABLES [facility] [place] [address] * (ABNORMAL) Coox2 (05/12/2023 2:25 PM EDT) pO2, Coox 37 mmHg [facility] Hgb Blood Gas 9.5(L) 11.7 - 15.5 g/dL [facility] Oxyhemoglobin, Coox 59.9 % [facility] Carboxyhemoglo bin, Coox 0.3 % [facility] Comment: Nonsmokers: 0.5-1.5% COHB Smokers: Variable, but usually less than 10% Toxic: 20-30% COHB Lethal: Greater than 60% COHB Methemoglobin, Coox 0.7 <=1.5 % [facility] Source Coox Mixed Venous [facility] Blood 05/12/2023 2:25 PM EDT 05/12/2023 2:25 PM EDT Alirio Hudson MD POINT OF CARE TEST ORDERABLES [facility] [place] [address] * (ABNORMAL) BLOOD GAS 2 ARTERIAL (05/12/2023 2:23 PM EDT) pH, Arterial 7.37 7.35 - 7.45 [facility] PCO2, Arterial 36 35 - 45 mmHg [facility] PO2, Arterial 102 85 - 104 mmHg [facility] Bicarbonate, Arterial 20.4 20.0 - 26.0 mmol/L [facility] Base Excess, Arterial -4.8(L) -3.0 - 3.0 mmol/L [facility] Hgb Blood Gas 12.7 11.7 - 15.5 g/dL [facility] Oxyhemoglobin, Arterial 95.4 94.0 - 97.0 % [facility] Carboxyhemoglob in, Arterial 0.3 % [facility] Comment: Nonsmokers: 0.5-1.5% COHB Smokers: Variable, but usually less than 10% Toxic: 20-30% COHB Lethal: Greater than 60% COHB Methemoglobin, Arterial 0.7 <=1.5 % [facility] Na Whole Blood 129(L) 135 - 145 mmol/L [facility] K Whole Blood 3.7 3.5 - 5.0 mmol/L [facility] Comment: Please note: Patients with WBC >100,000 may have falsely elevated Potassium levels. Contact the Clinical Chemistry Laboratory if there are any questions. ICa Whole Blood 1.05(L) 1.15 - 1.33 mmol/L [facility] Comment: Note: ??Total bilirubin higher than 20 mg/dL may lead to falsely low ionized calcium. CL Whole Blood 95(L) 98 - 107 mmol/L [facility] Gluc Whole Bld 168 65 - 199 mg/dL [facility] Comment:Diabetes: >=200 mg/d L plus symptoms. Lactate WB 1.8 0.5 - 2.2 mmol/L [facility] FIO2 Art 40 % [facility] PF Ratio Art 255 [facility] Blood 05/12/2023 2:23 PM EDT 05/12/2023 2:23 PM EDT Alirio Hudson MD POINT OF CARE TEST ORDERABLES Performing Organization Address City/[facility]/[place] [address] * (ABNORMAL) Troponin (05/12/2023 2:05 PM EDT) Troponin-T, High Sensitivity 1,022(H) <=14 ng/L [facility] Comment: This patient's [...] [facility] Test Catalog Reference: Fourth [place] Definition of Myocardial Infarction. Journal of the [place] [employer] 2018;72:1784-2936 Blood 05/12/2023 2:05 PM EDT 05/12/2023 2:14 PM EDT Narrative Resulting Agency Comment Spec In Lab Alirio Hudson MD CHEMISTRY ORDERABLE S Performing Organization Address City/[facility]/ZIP Co de Phone Number [facility] [place] [address] * (ABNORMAL) Hemoglobin (05/12/2023 2:05 PM EDT) Pathologist [facility] Hemoglobin 8.5(L) 11.7 - 15.5 g/dL [facility] Blood 05/12/2023 2:05 PM EDT 05/12/2023 2:14 PM EDT Narrative Resulting Agency Comment Spec In Lab Alirio Hudson MD HEMATOLOGY ORDERABL ES Performing Organization Address [facility] Co de Phone Number [facility] [place] [address] * Potassium (05/12/2023 2:05 PM EDT) [facility] Potassium 3.9 3.5 - 5.0 mmol/L [facility] Comment: Please note: [...] CHEMISTRY ORDERABLE S Performing Organization Address [facility] Co de Phone Number [facility] [place] [address] * (ABNORMAL) BLOOD GAS 2 ARTERIAL (05/12/2023 11:05 AM EDT) pH, Arterial 7.34(L) 7.35 - 7.45 [facility] PCO2, Arterial 42 35 - 45 mmHg [facility] PO2, Arterial 73(L) 85 - 104 mmHg [facility] Bicarbonate, Arterial 22.1 20.0 - 26.0 mmol/L [facility] Base Excess, Arterial -3.6(L) -3.0 - 3.0 mmol/L [facility] Hgb Blood Gas 9.3(L) 11.7 - 15.5 g/dL [facility] Oxyhemoglobin, Arterial 89.3(L) 94.0 - 97.0 % [facility] Carboxyhemoglob in, Arterial 0.2 % [facility] Comment: Nonsmokers: 0.5-1.5% COHB Smokers: Variable, but usually less than 10% Toxic: 20-30% COHB Lethal: Greater than 60% COHB Methemoglobin, Arterial 0.9 <=1.5 % [facility] Na Whole Blood 131(L) 135 - 145 mmol/L [facility] K Whole Blood 3.8 3.5 - 5.0 mmol/L [facility] Comment: Please note: Patients with WBC >100,000 may have falsely elevated Potassium levels. Contact the Clinical Chemistry Laboratory if there are any questions. ICa Whole Blood 1.04(L) 1.15 - 1.33 mmol/L [facility] Comment: Note: ??Total bilirubin higher than 20 mg/dL may lead to falsely low ionized calcium. CL Whole Blood 96(L) 98 - 107 mmol/L [facility] Gluc Whole Bld 152 65 - 199 mg/dL [facility] Comment:Diabetes: >=200 mg/d L plus symptoms. Lactate WB 2.8(H) 0.5 - 2.2 mmol/L [facility] FIO2 Art 40 % [facility] PF Ratio Art 182 [facility] Blood 05/12/2023 11:0 5 AM EDT 05/12/2023 11:05 AM EDT Alirio Hudson MD POINT OF CARE TEST ORDERABLES Performing Organization Address City/State/[facility] Co de Phone Number [facility] [place] [address] * (ABNORMAL) BLOOD GAS 2 ARTERIAL (05/12/2023 10:14 AM EDT) pH, Arterial 7.18(Criti gabrielle) 7.35 - 7.45 [facility] Comment:Noted by senior instrumentation engineer. PCO2, Arterial 45 35 - 45 mmHg [facility] PO2, Arterial 186(H) 85 - 104 mmHg [facility] Bicarbonate, Arterial 16.2(L) 20.0 - 26.0 mmol/L [facility] Base Excess, Arterial -12.2(L) -3.0 - 3.0 mmol/L [facility] Hgb Blood Gas 10.0(L) 11.7 - 15.5 g/dL [facility] Oxyhemoglobin, Arterial 97.0 94.0 - 97.0 % [facility] Carboxyhemoglob in, Arterial 0.2 % [facility] Comment: Nonsmokers: 0.5-1.5% COHB Smokers: Variable, but usually less than 10% Toxic: 20-30% COHB Lethal: Greater than 60% COHB Methemoglobin, Arterial 0.9 <=1.5 % [facility] Na Whole Blood 129(L) 135 - 145 mmol/L [facility] K Whole Blood 3.6 3.5 - 5.0 mmol/L [facility] Comment: Please note: Patients with WBC >100,000 may have falsely elevated Potassium levels. Contact the Clinical Chemistry Laboratory if there are any questions. ICa Whole Blood 1.10(L) 1.15 - 1.33 mmol/L [facility] Comment: Note: ??Total bilirubin higher than 20 mg/dL may lead to falsely low ionized calcium. CL Whole Blood 97(L) 98 - 107 mmol/L [facility] Gluc Whole Bld 161 65 - 199 mg/dL [facility] Comment:Diabetes: >=200 mg/d L plus symptoms. Lactate WB 3.3(H) 0.5 - 2.2 mmol/L [facility] FIO2 Art 100 % [facility] PF Ratio Art 186 [facility] Blood 05/12/2023 10:1 4 AM EDT 05/12/2023 10:14 AM EDT Alirio Hudson MD POINT OF CARE TEST ORDERABLES [facility] [place] [address] * EKG 12 Lead (05/12/2023 10:10 AM EDT) Ventricular rate 116 BPM MUSE SYSTEM Atrial Rate 116 BPM MUSE SYSTEM P-R Interval 158 ms MUSE SYSTEM QRS Duration 114 ms MUSE SYSTEM Q-T Interval 348 ms MUSE SYSTEM QTC Calculated (Bezet) 483 ms MUSE SYSTEM Calculated P Mcalpin 37 degrees MUSE SYSTEM Calculated R Mcalpin 31 degrees MUSE SYSTEM Calculated T Mcalpin -138 degrees MUSE SYSTEM INTERPRETATION Sinus tachycardia with intermittent aberrant ventricular conduction Possible Left atrial enlargement Incomplete left bundle block Left ventricular hypertrophy with repolarization abnormality ( Sokolow-Orozco , Ames product ) ST & T wave abnormality in Inferolateral leads Abnormal ECG When compared with ECG of 10-MAY-2023 13:16, ST & T wave abnormality is more pronounced in inferolateral leads I personally reviewed the tracing and edited the fellows interpretation Confirmed by fellow MD Anuja, Jim ([id number]) on 05/12/2023 1:04:20 PM Confirmed by MD Mono, Eleni ([id number]) on 05/12/2023 9:28:34 PM MUSE SYSTEM 05/12/2023 [...] questions please contact the health primary care nurse that requested your imaging first. ? Electronically signed by: Chyna Johnson MD, [facility] ??([phone]), at 05/12/2023 10:08 AM Narrative 05/12/2023 10:08 AM EDT EXAMINATION: XR CHEST ONE VIEW CLINICAL HISTORY: Post TAVR TECHNIQUE: 1 view of the chest COMPARISON: Chest radiograph from earlier today FINDINGS: Interval placement of endotracheal tube with tip terminating 2 cm above the shira. Interval placement of enteric tube projecting along the expected course of the esophagus and outside the xkitc-us-zpwi. Interval retraction of right IJ approach pulmonary [...] tube with tip terminating 2 cm abovethe sihra. Interval placement of enteric tube projecting along the expected course ofthe esophagus and outside the khlbi-wh-lymg. Interval retraction of right IJ approach pulmonary [...] have questions please contactthe health primary care nurse that requested your imaging first. Electronically signed by: Chyna Johnson MD, [facility]([phone]), at 05/12/2023 10:08 AM Alirio Hudson MD IMG DX ORDERABLES * ECHO LMTD W/O CONTRAST W LMTD SPEC DOPP COLOR DOPP (05/12/2023 9:23 AM EDT) EF 20 HEART[employer] SYSTEM Anatomical Region Laterality Modality Cardiac Other 05/12/2023 7:33 AM EDT Narrative 05/12/2023 10:18 AM EDT ? Echocardiogram Report Name: PURNIMA THACKER ?Study Date: 05/12/2023 07:33 AMBP: 96/63 mmHg ? Patient Location: [place] CA06 A : 1955 ? Height: 154 cm ? Account: [id number] Age: 67 yrs ? Weight: 75 kg [...] mL/m2. POST TAVR: Normal function of the hhxay-dp-wiabh prosthesis. See below for hemodynamic parameters. Slight improvement in left and right ventricular systolic function. LVEF now 20-25%. No pericardial effusion. See report for additional findings. Procedure Limited - 83150. Doppler - 64516. Color Doppler - 56826. Left Ventricle Left ventricle is of normal [...] Date: 307:33 AMBP: 96/63 mmHg Patient Location: [address] : 1955 Height: 154 cm Account: [id number] Age: 67 yrs Weight: 75 kg Gender: [...] 28mL/m2. POST TAVR: Normal function of the izcsc-mz-jbayw prosthesis. See belowfor hemodynamic parameters. Slight improvement in left and right ventricularsystolic function. LVEF now 20-25%. No pericardial effusion. See report for additional findings. Procedure Limited - 96101. Doppler - 79045. Color Doppler - 12977. Left Ventricle Left ventricle is of normal [...] ? Procedure Date: 05/12/2023 ? A #: [id number] ? Primary Physician: Antelmo Sharma ? Case #: [id number] ? File Name: [id number] ? Catheterization Order Number: [id number] ? [facility] ? Final Report [place], [place] ? Patient Name: ? Purnima M. Kirstie ? ID#: ?[id number] ? : ?1955 ? Procedure Date: ? May 12, 2023 ? Case #: ? [id number] ? Room: ? 6 ? 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 deployed with a maximum [...] calculated STS risk score was 30.1%. A haqav-fi-ujbvo ?procedure was performed on the pre-existing bioprosthetic stented ?prosthesis. The priority of the boief-aj-pkrnb procedure was Elective. ?The procedure was performed [...] Lai 3 Ultra RESILIA 23 mm THV (s/k=[id number]) transcatheter ?valve was inserted using standard technique. [...] regimen. ? Comments: ?Successful right transfemoral TAVR Qkndq-fi-Chdho with a 23 mm Lai 3 ?THV. [...] Purnima ThackerKaylie Procedure Date: 05/12/2023 A #: [id number] Primary Physician: Antelmo Sharma Case #: [id number] File Name: [id number] Catheterization Order Number: [id number] [facility] FinalReport [place], [place] Patient Name: Purnima Thacker ID#:[id number] :1955 Procedure Date: May 12, 2023 Case #: [id number] Room: 6 Case Physicians: Antelmo Sharma M.D. Start: 08:03 Alirio Hudson M.D. Admission:05/08/2023 Lynda Mcgowan M.D. Discharge:05/22/2023 Fellow: Rebekah Tejeda M.D. Referring Physician: Mario Alberto Chin M.D. Procedures: * Coronary Angiography * Left Heart Catheterization * Coronary Stent Insertion * Transcatheter Aortic Valve Replacement * Vascular Closure Device Deployment * Temporary Pacemaker Insertion In Regional Truck Driver * Endotracheal Intubation By Non-Cath Physician * [...] A premounted 4.00 x 30 mm Nils [place] (MINNA) was deployed with a maximum inflation [...] calculated STS risk score was 30.1%. A kvmyi-tq-zffst procedure was performed on the pre-existing bioprosthetic stented prosthesis. The priority of the xrowf-et-yffjm procedure wasElective. The procedure was performed under Moderate sedation performed byLynda Mcgowan M.D. (see anesthesia report for additional details). Alirio Hudson M.D. participated in the case (see Cardiac Surgery reportfor additional details). The TAVR sheath was a 14 Fr Corona eSheath Introducer and theaccess site was femoral. Rapid ventricular pacing was performed. An Corona Lai 3 Ultra RESILIA 23 mm THV (s/x=[id number])transcatheter valve was inserted using standard technique. The [...] this regimen. Comments: Successful right transfemoral TAVR Asrnw-re-Xryyd with a 23 mmSapien 3 THV. We [...] pH, POC 7.20(Crit ical) 7.35 - 7.45 [facility] Comment:Critical value OK, C C Lab. pCO2, POC 42 35 - 45 mmHg [facility] pO2, POC 260(H) 85 - 104 mmHg [facility] Base Excess, POC -11.0(L) -3.0 - 3.0 mmol/L [facility] Bicarbonate, POC 16.7(L) 20.0 - 26.0 mmol/L [facility] Sodium, POC 129(L) 135 - 145 mmol/L [facility] POC Potassium 3.8 3.5 - 5.0 mmol/L [facility] Ionized Calcium, POC 1.12(L) 1.15 - 1.33 mmol/L [facility] POC Hematocrit 23.0(L) 34.0 - 45.0 % [facility] POC Calc Hgb 7.8(L) 11.2 - 15.7 g/dL [facility] Comment:The calculation of h emoglobin from hematocrit assumes a normal MCHC. POC Bgas Loc CC Lab [facility] Blood 05/12/2023 8:50 AM EDT 05/13/2023 12:00 PM EDT Alirio Hudson MD CHEMISTRY ORDERABLE S [facility] [place] [address] * (ABNORMAL) Point of Care Blood Gas Historical (05/12/2023 8:10 AM EDT) pH, POC 7.27(Crit ical) 7.35 - 7.45 [facility] Comment:Critical value Yamel KRAUSE C Lab. pCO2, POC 37 35 - 45 mmHg [facility] pO2, POC 29(Critic al) 85 - 104 mmHg [facility] Comment:Critical value JIMI C C Lab. Base Excess, POC -10.0(L) -3.0 - 3.0 mmol/L [facility] Bicarbonate, POC 16.7(L) 20.0 - 26.0 mmol/L [facility] Sodium, POC 123(L) 135 - 145 mmol/L [facility] POC Potassium 4.0 3.5 - 5.0 mmol/L [facility] Ionized Calcium, POC 1.12(L) 1.15 - 1.33 mmol/L [facility] POC Hematocrit 27.0(L) 34.0 - 45.0 % [facility] POC Calc Hgb 9.2(L) 11.2 - 15.7 g/dL [facility] Comment:The calculation of h emoglobin from hematocrit assumes a normal MCHC. POC Bgas Loc CC Lab [facility] Blood 05/12/2023 8:10 AM EDT 05/13/2023 12:00 PM EDT Alirio Hudson MD CHEMISTRY ORDERABLE S Performing Organization Address City/[facility]/ZIP Co de Phone Number [facility] [place] [address] * (ABNORMAL) Lactate, whole blood, [place] (05/12/2023 7:00 AM EDT) Lactate WB 2.4(H) 0.5 - 2.2 mmol/L [facility] Blood 05/12/2023 7:00 AM EDT 05/12/2023 7:09 AM EDT Narrative Resulting Agency Comment Spec In Lab Radha Hollins MD CHEMISTRY ORDERABL ES Performing Organization Address [facility] Co de Phone Number [facility] [place] [address] * (ABNORMAL) Comprehensive metabolic panel (non-fasting) (05/12/2023 6:00 AM EDT) Glucose 167 65 - 199 mg/dL [facility] Comment:Diabetes: >=200 mg/d L plus symptoms Blood Urea Nitrogen 67(H) 8 - 18 mg/dL [facility] Creatinine 2.01(H) 0.70 - 1.20 mg/dL [facility] Sodium 131(L) 135 - 145 mmol/L [facility] Potassium 4.3 3.5 - 5.0 mmol/L [facility] Comment: Please note: ??Patients with WBC >100,000 may have falsely elevated Potassium levels. ??For accurate Potassium quantification in these patients send serum separator tube (gold top) for subsequent determinations. ??Contact the Clinical Chemistry Laboratory if there are any questions. Chloride 97(L) 98 - 107 mmol/L [facility] Carbon Dioxide 14(L) 22 - 31 mmol/L [facility] Anion Gap 20(H) 5 - 15 mmol/L [facility] Calcium 8.6 8.5 - 10.5 mg/dL [facility] Protein, Total 6.3 6.1 - 8.0 g/dL [facility] Albumin 3.5 3.2 - 5.2 g/dL [facility] Aspartate Aminotransferase 1,435(H) 0 - 30 unit/L [facility] Alanine Aminotransferase 1,174(H) 0 - 30 unit/L [facility] Alkaline Phosphatase 100 35 - 105 unit/L [facility] Bilirubin, Total 0.9 0.2 - 1.3 mg/dL [facility] Est Glomerular Filtration Rate 27(L) >=60 mL/min/1. 73 m?? [facility] Comment: This patient's [...] Lab Radha Hollins MD CHEMISTRY ORDERABL ES [facility] [place] [address] * (ABNORMAL) Coox2 (05/12/2023 5:08 AM EDT) pO2, Coox 24 mmHg [facility] Hgb Blood Gas 10.4(L) 11.7 - 15.5 g/dL [facility] Oxyhemoglobin, Coox 30.7 % [facility] Carboxyhemoglo bin, Coox 0.3 % [facility] Comment: Nonsmokers: 0.5-1.5% COHB Smokers: Variable, but usually less than 10% Toxic: 20-30% COHB Lethal: Greater than 60% COHB Methemoglobin, Coox 0.8 <=1.5 % [facility] Source Coox Mixed Venous [facility] Blood 05/12/2023 5:08 AM EDT 05/12/2023 5:08 AM EDT Radha Hollins MD POINT OF CARE TEST ORDERABLES [facility] [place] [address] * (ABNORMAL) Coox2 (05/12/2023 3:21 AM EDT) pO2, Coox 25 mmHg [facility] Hgb Blood Gas 10.8(L) 11.7 - 15.5 g/dL [facility] Oxyhemoglobin, Coox 32.7 % [facility] Carboxyhemoglo bin, Coox 0.3 % [facility] Comment: Nonsmokers: 0.5-1.5% COHB Smokers: Variable, but usually less than 10% Toxic: 20-30% COHB Lethal: Greater than 60% COHB Methemoglobin, Coox 0.7 <=1.5 % [facility] Source Coox Mixed Venous [facility] Blood 05/12/2023 3:21 AM EDT 05/12/2023 3:21 AM EDT Radha Hollins MD POINT OF CARE TEST ORDERABLES [facility] [place] [address] * (ABNORMAL) BLOOD GAS 2 ARTERIAL (05/12/2023 3:18 AM EDT) pH, Arterial 7.34(L) 7.35 - 7.45 [facility] PCO2, Arterial 30(L) 35 - 45 mmHg [facility] PO2, Arterial 72(L) 85 - 104 mmHg [facility] Bicarbonate, Arterial 16.0(L) 20.0 - 26.0 mmol/L [facility] Base Excess, Arterial -9.8(L) -3.0 - 3.0 mmol/L [facility] Hgb Blood Gas 11.0(L) 11.7 - 15.5 g/dL [facility] Oxyhemoglobin, Arterial 89.8(L) 94.0 - 97.0 % [facility] Carboxyhemoglob in, Arterial 0.3 % [facility] Comment: Nonsmokers: 0.5-1.5% COHB Smokers: Variable, but usually less than 10% Toxic: 20-30% COHB Lethal: Greater than 60% COHB Methemoglobin, Arterial 0.7 <=1.5 % [facility] Na Whole Blood 131(L) 135 - 145 mmol/L [facility] K Whole Blood 4.2 3.5 - 5.0 mmol/L [facility] Comment: Please note: Patients with WBC >100,000 may have falsely elevated Potassium levels. Contact the Clinical Chemistry Laboratory if there are any questions. ICa Whole Blood 1.12(L) 1.15 - 1.33 mmol/L [facility] Comment: Note: ??Total bilirubin higher than 20 mg/dL may lead to falsely low ionized calcium. CL Whole Blood 100 98 - 107 mmol/L [facility] Gluc Whole Bld 160 65 - 199 mg/dL [facility] Comment:Diabetes: >=200 mg/d L plus symptoms. Lactate WB 2.7(H) 0.5 - 2.2 mmol/L [facility] Flow Art 5.0 LPM [facility] Blood 05/12/2023 3:18 AM EDT 05/12/2023 3:18 AM EDT Radha Hollins MD POINT OF CARE TEST ORDERABLES [facility] [place] [address] * (ABNORMAL) Coox2 (05/12/2023 1:14 AM EDT) pO2, Coox 28 mmHg [facility] Hgb Blood Gas 10.9(L) 11.7 - 15.5 g/dL [facility] Oxyhemoglobin, Coox 37.3 % [facility] Carboxyhemoglo bin, Coox 0.3 % [facility] Comment: Nonsmokers: 0.5-1.5% COHB Smokers: Variable, but usually less than 10% Toxic: 20-30% COHB Lethal: Greater than 60% COHB Methemoglobin, Coox 0.5 <=1.5 % [facility] Source Coox Mixed Venous [facility] Blood 05/12/2023 1:14 AM EDT 05/12/2023 1:14 AM EDT Radha Hollins MD POINT OF CARE TEST ORDERABLES [facility] [place] [address] * (ABNORMAL) BLOOD GAS 2 ARTERIAL (05/12/2023 1:06 AM EDT) pH, Arterial 7.34(L) 7.35 - 7.45 [facility] PCO2, Arterial 30(L) 35 - 45 mmHg [facility] PO2, Arterial 81(L) 85 - 104 mmHg [facility] Bicarbonate, Arterial 15.7(L) 20.0 - 26.0 mmol/L [facility] Base Excess, Arterial -10.1(L) -3.0 - 3.0 mmol/L [facility] Hgb Blood Gas 11.0(L) 11.7 - 15.5 g/dL [facility] Oxyhemoglobin, Arterial 92.3(L) 94.0 - 97.0 % [facility] Carboxyhemoglob in, Arterial 0.2 % [facility] Comment: Nonsmokers: 0.5-1.5% COHB Smokers: Variable, but usually less than 10% Toxic: 20-30% COHB Lethal: Greater than 60% COHB Methemoglobin, Arterial 0.6 <=1.5 % [facility] Na Whole Blood 131(L) 135 - 145 mmol/L [facility] K Whole Blood 4.2 3.5 - 5.0 mmol/L [facility] Comment: Please note: Patients with WBC >100,000 may have falsely elevated Potassium levels. Contact the Clinical Chemistry Laboratory if there are any questions. ICa Whole Blood 1.13(L) 1.15 - 1.33 mmol/L [facility] Comment: Note: ??Total bilirubin higher than 20 mg/dL may lead to falsely low ionized calcium. CL Whole Blood 99 98 - 107 mmol/L [facility] Gluc Whole Bld 132 65 - 199 mg/dL [facility] Comment:Diabetes: >=200 mg/d L plus symptoms. Lactate WB 2.7(H) 0.5 - 2.2 mmol/L [facility] Flow Art 5.0 LPM [facility] Blood 05/12/2023 1:06 AM EDT 05/12/2023 1:06 AM EDT Radha Hollins MD POINT OF CARE TEST ORDERABLES Performing Organization Address City/State/[facility] Co de Phone Number [facility] [place] [address] * (ABNORMAL) Differential, Automated (05/12/2023 1:05 AM EDT) Neutrophil % 83.3 % [facility] Neutrophil Absolute 7.49(H) 1.70 - 6.10 x10(3)/mc L [facility] Lymph % 7.1 % [facility] Lymphocytes Abs 0.6(L) 0.9 - 3.2 x10(3)/mc L [facility] Monocyte % 8.9 % [facility] Monocyte Abs 0.8 0.3 - 0.9 x10(3)/mc L [facility] Eos % 0.0 % [facility] Eosinophils Abs 0.0 0.0 - 0.4 x10(3)/mc L [facility] Basophil % 0.1 % [facility] Baso Absolute 0.0 0.0 - 0.1 x10(3)/mc L [facility] Immature Gran % 0.60 % [facility] Comment: Immature granulocytes(IG's)percentage and absolute count will include metamyelocytes, myelocytes, and promyelocytes. Blood smears from CBCs yielding IG's will be scanned manually for concordance. If this scan disagrees with the automated IG or if promyelocytes are noted, a manual differential will be performed. Immature Gran Absolute 0.05(H) 0.00 - 0.04 x10(3)/mc L [facility] Blood 05/12/2023 1:05 AM EDT 05/12/2023 1:15 AM EDT Narrative Resulting Agency Comment Spec In Lab Gianni Fletcher MD HEMATOLOGY ORDERABLE S [facility] [place] [address] * (ABNORMAL) Hemogram (05/12/2023 1:05 AM EDT) White Blood Cell 9.0 4.0 - 9.5 x10(3)/[facility] Red Blood Cell 3.01(L) 4.00 - 5.21 x10(6)/ L [facility] Hemoglobin 9.8(L) 11.7 - 15.5 g/dL [facility] Hematocrit 28.7(L) 35.7 - 45.8 % [facility] Mean Cell Volume 95.3(H) 82.6 - 94.4 fL [facility] Mean Cell Hemoglobin 32.6(H) 27.1 - 32.0 pg [facility] Mean Cell Hemoglobin Concentration 34.1 31.7 - 35.0 g/dL [facility] [facility] Platelet 186 145 - 357 x10(3)/mc L [facility] RDW Standard Deviation 43.7 37.0 - 46.0 fL [facility] RDW coefficient of variation 12.7 11.5 - 14.1 % [facility] Mean Platelet Volume 10.3 7.6 - 12.9 fL [facility] NRBC% auto 0.0 % [facility] NRBC Absolute 0.000 0.000 - 0.000 x10(3)/ L [facility] Blood 05/12/2023 1:05 AM EDT 05/12/2023 1:15 AM EDT Narrative Resulting Agency Comment Spec In Lab Gianni Fletcher MD HEMATOLOGY ORDERABLE S [facility] [place] [place] [address] * (ABNORMAL) Comprehensive metabolic panel (non-fasting) (05/12/2023 1:05 AM EDT) Glucose 141 65 - 199 mg/dL [facility] Comment:Diabetes: >=200 mg/d L plus symptoms Blood Urea Nitrogen 63(H) 8 - 18 mg/dL [facility] Creatinine 1.86(H) 0.70 - 1.20 mg/dL [facility] Sodium 131(L) 135 - 145 mmol/L [facility] Potassium 4.4 3.5 - 5.0 mmol/L [facility] Comment: Please note: ??Patients with WBC >100,000 may have falsely elevated Potassium levels. ??For accurate Potassium quantification in these patients send serum separator tube (gold top) for subsequent determinations. ??Contact the Clinical Chemistry Laboratory if there are any questions. Chloride 96(L) 98 - 107 mmol/L [facility] Carbon Dioxide 14(L) 22 - 31 mmol/L [facility] Anion Gap 21(H) 5 - 15 mmol/L [facility] Calcium 9.0 8.5 - 10.5 mg/dL [facility] Protein, Total 6.6 6.1 - 8.0 g/dL [facility] Albumin 3.9 3.2 - 5.2 g/dL [facility] Aspartate Aminotransferase 1,227(H) 0 - 30 unit/L [facility] Alanine Aminotransferase 1,097(H) 0 - 30 unit/L [facility] Alkaline Phosphatase 108(H) 35 - 105 unit/L [facility] Bilirubin, Total 1.0 0.2 - 1.3 mg/dL [facility] Est Glomerular Filtration Rate 29(L) >=60 mL/min/1. 73 m?? [facility] Comment: This patient's [...] Lab Radha Hollins MD CHEMISTRY ORDERABL ES [facility] [place] [place] [address] * XR Chest One View (05/12/2023 1:00 [...] questions please contact the health primary care nurse that requested your imaging first. [...] have questions please contactthe health primary care nurse that requested your imaging first. Radha Hollins MD IMG DX ORDERABLES * (ABNORMAL) Coox2 (05/12/2023 12:30 AM EDT) pO2, Coox 22 mmHg [facility] Hgb Blood Gas 10.9(L) 11.7 - 15.5 g/dL [facility] Oxyhemoglobin, Coox 25.1 % [facility] Carboxyhemoglo bin, Coox 0.3 % [facility] Comment: Nonsmokers: 0.5-1.5% COHB Smokers: Variable, but usually less than 10% Toxic: 20-30% COHB Lethal: Greater than 60% COHB Methemoglobin, Coox 1.4 <=1.5 % [facility] Source Coox Mixed Venous [facility] Blood 05/12/2023 12:3 0 AM EDT 05/12/2023 12:30 AM EDT Radha Hollins MD POINT OF CARE TEST ORDERABLES [facility] [place] [address] * XR Chest One View (05/11/2023 11:45 [...] questions please contact the health primary care nurse that requested your imaging first. [...] have questions please contactthe health primary care nurse that requested your imaging first. Radha Hollins MD IMG DX ORDERABLES * (ABNORMAL) Lactate, whole blood, [place] lab [place] (05/11/2023 7:40 PM EDT) Lactate WB 4.8(Critic al) 0.5 - 2.2 mmol/L [facility] Comment:Called by: IMM, Read back by: Magdalena Baires, Date/Time:05/11/23 19:54. Blood 05/11/2023 7:40 PM EDT 05/11/2023 7:49 PM EDT Narrative Resulting Agency Comment Spec In Lab Radha Hollins MD CHEMISTRY ORDERABL ES Performing Organization Address [facility] Co de Phone Number [facility] [place] [address] * Urine culture (05/11/2023 7:22 PM EDT) Pathologist [facility] Urine Culture 50,000-99,000 cfu/ml Normal mucosal herman Susceptibilit y testing not routinely performed for Coagulase Negative Staphylococcu s species and other Gram Positive organisms from urine. [facility] Clean Catch Urine 05/11/2023 7:22 PM EDT 05/11/2023 8:50 PM EDT Narrative Resulting Agency Comment Spec In Lab Brody Kaplan APRN MICROBIOLOGY - GENE RAL ORDERABLES Performing Organization Address [facility] de Phone Number [facility] [place] [address] * (ABNORMAL) Urinalysis Microscopic Exam (05/11/2023 7:22 PM EDT) RBC, Urine 2 0 - 4 /HPF [facility] WBC, Urine >100(H) 0 - 5 /HPF [facility] Bacteria, Urine Occasional (A) None /HPF [facility] Squamous Epithelial Cells Raw Data, Urine 5(H) <=4 /HPF [facility] Hyaline Casts, Urine 3(H) 0 - 2 /LPF [facility] Clean Catch Urine 05/11/2023 7:22 PM EDT 05/11/2023 7:31 PM EDT Narrative Resulting Agency Comment Spec In Lab Brody Kaplan APRN URINE ORDERABLES [facility] [place] [address] * (ABNORMAL) Urinalysis with reflex Culture (05/11/2023 7:22 PM EDT) Glucose, Urine Dipstick Negative Negative mg/dL [facility] Protein, Urine Dipstick Trace(A) Negative mg/dL [facility] Bilirubin, Urine Dipstick Negative Negative mg/dL [facility] Comment: Clinical correlation required for positive Urine Bilirubin results as false positive may occur with some drugs and drug related products. If a false positive is suspected a serum total bilirubin should be considered if clinically indicated. Urobilinogen, Urine Dipstick Normal Normal mg/dL [facility] pH, Urn (dipstick) 5.0 5.0 - 8.0 [facility] Blood, Urine Dipstick Trace(A) Negative mg/dL [facility] Ketone, Urine Dipstick Negative Negative mg/dL [facility] Nitrite, Urine Dipstick Negative Negative [facility] Leukocytes, Urine Dipstick Moderate(A) Negative mcL [facility] Appearance, Urine Dipstick Cloudy(A) Clear [facility] Specific [facility] Urine Automated >=1.030(A) 1.005 - 1.030 [facility] Color, Urine Dipstick Yellow Yellow [facility] Reflex to Culture Yes [facility] Clean Catch Urine 05/11/2023 7:22 PM EDT 05/11/2023 7:31 PM EDT Narrative Resulting Agency Comment Spec In Lab Brody Kaplan COMMUNITY NUTRITION EDUCATOR URINE ORDERABLES [facility] [place] [address] * (ABNORMAL) pro-Brain Natriuretic Peptide (05/11/2023 7:11 PM EDT) NT-proBNP >35,000(H) <=124 pg/mL [facility] Blood 05/11/2023 7:11 PM EDT 05/11/2023 7:26 PM EDT Narrative Resulting Agency Comment Spec In Lab Radha Hollins MD CHEMISTRY ORDERABL ES Performing Organization Address [facility]/ZIP Co de Phone Number [facility] [place] [address] * (ABNORMAL) Lactate, whole blood, send to lab ([facility] (05/11/2023 2:47 PM EDT) Lactate WB 2.9(H) 0.5 - 2.2 mmol/L [facility] Blood 05/11/2023 2:47 PM EDT 05/11/2023 2:53 PM EDT Narrative Resulting Agency Comment Spec In Lab Juan Luis Gonzalez MD CHEMISTRY ORDERABLES Performing Organization Address [facility] Co de Phone Number [facility] [place] [address] * (ABNORMAL) CT Angiogram Abdomen & Pelvis [...] questions please contact the health primary care nurse that requested your imaging first. [...] questions please contact the health primary care nurse that requested your imaging first. ? Electronically signed by: Cullen Narayanan MD, [facility] ([phone]), at 05/11/2023 4:37 PM Narrative 05/11/2023 4:37 [...] 610 mm2 Circumference: 88 mm Calcification: Mild Dttrnnv-[id number] height: Left: 6.2 mm Right: 5.8 mm THORACIC AORTA Description: Normal course and caliber. ??Mild diffuse atherosclerotic changes. No acute aortopathy noted. Irrigation Equipment Installer dimensions: Aortic root: 27.6 mm Max [...] Abdomen & Pelvis finding. Procedure Note Cullen Narayanna MD - 05/11/2023 EXAMINATION: CT CARDIAC FOR [...] 610 mm2 Circumference: 88 mm Calcification: Mild Zpqcqay-vr-ibiwwgqv height: Left: 6.2 mm Right: 5.8 mm THORACIC AORTA Description: Normal course and caliber. Mild diffuse atheroscleroticchanges. No acute aortopathy noted. Irrigation Equipment Installer dimensions: Aortic root: 27.6 mm Max [...] have questions please contactthe health primary care nurse that requested your imaging first. Electronically signed by: Cullen Narayanan MD, [facility]([phone]), at 05/11/2023 4:37 PM Antelmo Sharma MD IMG CT ORDERABLES * (ABNORMAL) Lactate, whole blood, send to lab ([facility] (05/11/2023 9:29 AM EDT) Pathologist [facility] Lactate WB 3.1(H) 0.5 - 2.2 mmol/L [facility] Blood 05/11/2023 9:29 AM EDT 05/11/2023 9:38 AM EDT Narrative Resulting Agency Comment Spec In Lab Juan Luis Gonzalez MD CHEMISTRY ORDERABLES [facility] [place] [address] * (ABNORMAL) Differential, Automated (05/11/2023 4:42 AM EDT) Neutrophil % 78.1 % [facility] Neutrophil Absolute 5.46 1.70 - 6.10 x10(3)/mc L [facility] Lymph % 10.6 % [facility] Lymphocytes Abs 0.7(L) 0.9 - 3.2 x10(3)/mc L [facility] Monocyte % 9.6 % [facility] Monocyte Abs 0.7 0.3 - 0.9 x10(3)/mc L [facility] Eos % 0.0 % [facility] Eosinophils Abs 0.0 0.0 - 0.4 x10(3)/mc L [facility] Basophil % 0.4 % [facility] Baso Absolute 0.0 0.0 - 0.1 x10(3)/ L [facility] Immature Gran % 1.30 % [facility] Comment: Immature granulocytes(IG's)percentage and absolute count will include metamyelocytes, myelocytes, and promyelocytes. Blood smears from CBCs yielding IG's will be scanned manually for concordance. If this scan disagrees with the automated IG or if promyelocytes are noted, a manual differential will be performed. Immature Gran Absolute 0.09(H) 0.00 - 0.04 x10(3)/ L [facility] Blood 05/11/2023 4:42 AM EDT 05/11/2023 4:49 AM EDT Narrative Resulting Agency Comment Spec In Lab Klaudia Reid MD HEMATOLOGY OR DERABLES Performing Organization Address City/State/[facility] Co de Phone Number [facility] [place] [address] * (ABNORMAL) Hemogram (05/11/2023 4:42 AM EDT) White Blood Cell 7.0 4.0 - 9.5 x10(3)/[facility] Red Blood Cell 3.44(L) 4.00 - 5.21 x10(6)/[facility] Hemoglobin 11.1(L) 11.7 - 15.5 g/dL [facility] Hematocrit 32.7(L) 35.7 - 45.8 % [facility] Mean Cell Volume 95.1(H) 82.6 - 94.4 fL [facility] Mean Cell Hemoglobin 32.3(H) 27.1 - 32.0 pg [facility] Mean Cell Hemoglobin Concentration 33.9 31.7 - 35.0 g/dL [facility] Platelet 165 145 - 357 x10(3)/[facility] RDW Standard Deviation 43.1 37.0 - 46.0 fL [facility] RDW coefficient of variation 12.7 11.5 - 14.1 % [facility] Mean Platelet Volume 10.1 7.6 - 12.9 fL [facility] NRBC% auto 0.0 % [facility] NRBC Absolute 0.000 0.000 - 0.000 x10(3)/mc L [facility] Blood 05/11/2023 4:42 AM EDT 05/11/2023 4:49 AM EDT Narrative Resulting Agency Comment Spec In Lab Klaudia Reid MD HEMATOLOGY OR DERABLES Performing Organization Address [facility] Co de Phone Number [facility] [place] [address] * Heparin (unfractionated) Level (05/11/2023 4:42 AM EDT) UF Heparin 0.46 IU/mL [facility] Comment: Heparin [...] HEMATOLOGY ORDERAB LES Performing Organization Address [facility] Co de Phone Number [facility] [place] [address] * (ABNORMAL) Comprehensive metabolic panel (non-fasting) (05/11/2023 4:42 AM EDT) Glucose 143 65 - 199 mg/dL [facility] Comment:Diabetes: >=200 mg/d L plus symptoms Blood Urea Nitrogen 42(H) 8 - 18 mg/dL [facility] Creatinine 1.24(H) 0.70 - 1.20 mg/dL [facility] Sodium 134(L) 135 - 145 mmol/L [facility] Potassium 4.6 3.5 - 5.0 mmol/L [facility] Comment: Please note: ??Patients with WBC >100,000 may have falsely elevated Potassium levels. ??For accurate Potassium quantification in these patients send serum separator tube (gold top) for subsequent determinations. ??Contact the Clinical Chemistry Laboratory if there are any questions. Chloride 99 98 - 107 mmol/L [facility] Carbon Dioxide 14(L) 22 - 31 mmol/L [facility] Anion Gap 21(H) 5 - 15 mmol/L [facility] Calcium 9.6 8.5 - 10.5 mg/dL [facility] Protein, Total 7.2 6.1 - 8.0 g/dL [facility] Albumin 3.7 3.2 - 5.2 g/dL [facility] Aspartate Aminotransferase 144(H) 0 - 30 unit/L [facility] Comment:result rechecked-ssc Alanine Aminotransferase 130(H) 0 - 30 unit/L [facility] Comment:result rechecked-ssc Alkaline Phosphatase 72 35 - 105 unit/L [facility] Bilirubin, Total 0.8 0.2 - 1.3 mg/dL [facility] Est Glomerular Filtration Rate 48(L) >=60 mL/min/1. 73 m?? [facility] Comment: This patient's [...] Lab Radha Hollins MD CHEMISTRY ORDERABL ES [facility] [place] [address] * EKG 12 Lead (05/10/2023 1:16 PM EDT) Ventricular rate 118 BPM MUSE SYSTEM Atrial Rate 118 BPM MUSE SYSTEM P-R Interval 152 ms MUSE SYSTEM QRS Duration 104 ms MUSE SYSTEM Q-T Interval 316 ms MUSE SYSTEM QTC Calculated (Bezet) 442 ms MUSE SYSTEM Calculated P Mcalpin 29 degrees MUSE SYSTEM Calculated R Mcalpin 18 degrees MUSE SYSTEM Calculated T Mcalpin -173 degrees MUSE SYSTEM INTERPRETATION Sinus tachycardia [...] Anterior leads Confirmed by MD Mono, Eleni ([id number]) on 05/10/2023 8:47:46 PM MUSE SYSTEM 05/10/2023 1:16 PM EDT 05/10/2023 8:47 PM EDT Juan Luis Gonzalez MD ECG ORDERABLES Performing Organization Address City/[facility]/ZIP Co de Phone Number MUSE SYSTEM * Lactate, whole blood, send to lab ([facility] (05/10/2023 11:52 AM EDT) Pathologist [facility] Lactate WB 1.8 0.5 - 2.2 mmol/L [facility] Blood 05/10/2023 11:5 2 AM EDT 05/10/2023 12:13 PM EDT Narrative Resulting Agency Comment Spec In Lab Juan Luis Gonzalez MD CHEMISTRY ORDERABLES [facility] [place] [address] * XR Chest One View (05/10/2023 11:16 [...] questions please contact the health primary care nurse that requested your imaging first. ? Electronically signed by: ALIX RUVALCABA MD, [facility] ([phone]), at 05/10/2023 1:25 PM Narrative 05/10/2023 1:25 [...] have questions please contactthe health primary care nurse that requested your imaging first. Electronically signed by: ALIX RUVALCABA MD, [facility]([phone]), at 05/10/2023 1:25 PM Juan Luis Gonzalez MD IMG DX ORDERABLES * EKG 12 Lead (05/10/2023 7:59 AM EDT) Ventricular rate 115 BPM MUSE SYSTEM Atrial Rate 115 BPM MUSE SYSTEM P-R Interval 142 ms MUSE SYSTEM QRS Duration 102 ms MUSE SYSTEM Q-T Interval 322 ms MUSE SYSTEM QTC Calculated (Bezet) 445 ms MUSE SYSTEM Calculated P Mcalpin 36 degrees MUSE SYSTEM Calculated R Mcalpin 28 degrees MUSE SYSTEM Calculated T Mcalpin -119 degrees MUSE SYSTEM INTERPRETATION Sinus tachycardia with frequent Premature ventricular complexes and Fusion complexes ST & T wave abnormality, consider lateral ischemia Abnormal ECG When compared with ECG of 08-MAY-2023 15:51, No significant change was found I personally reviewed the tracing and edited the fellows interpretation Confirmed by fellow MD Anitha, Carissa ([id number]) on 05/11/2023 6:19:54 AM Confirmed by MD Tram, Chel ([id number]) on 05/11/2023 3:18:56 PM MUSE SYSTEM 05/10/2023 7:59 AM EDT 05/11/2023 3:18 PM EDT Radha Hollins MD ECG ORDERABLES MUSE SYSTEM * (ABNORMAL) Differential, Automated (05/10/2023 2:28 AM EDT) Neutrophil % 77.1 % [facility] Neutrophil Absolute 4.01 1.70 - 6.10 x10(3)/mc L [facility] Lymph % 14.0 % [facility] Lymphocytes Abs 0.7(L) 0.9 - 3.2 x10(3)/mc L [facility] Monocyte % 7.7 % [facility] Monocyte Abs 0.4 0.3 - 0.9 x10(3)/mc L [facility] Eos % 0.4 % [facility] Eosinophils Abs 0.0 0.0 - 0.4 x10(3)/ L [facility] Basophil % 0.4 % [facility] Baso Absolute 0.0 0.0 - 0.1 x10(3)/ L [facility] Immature Gran % 0.40 % [facility] Comment: Immature granulocytes(IG's)percentage and absolute count will include metamyelocytes, myelocytes, and promyelocytes. Blood smears from CBCs yielding IG's will be scanned manually for concordance. If this scan disagrees with the automated IG or if promyelocytes are noted, a manual differential will be performed. Immature Gran Absolute 0.02 0.00 - 0.04 x10(3)/[facility] Blood 05/10/2023 2:28 AM EDT 05/10/2023 2:57 AM EDT Narrative Resulting Agency Comment Spec In Lab Klaudia Reid MD HEMATOLOGY OR DERABLES [facility] [place] [address] * (ABNORMAL) Hemogram (05/10/2023 2:28 AM EDT) White Blood Cell 5.2 4.0 - 9.5 x10(3)/ L [facility] Red Blood Cell 3.11(L) 4.00 - 5.21 x10(6)/mc L [facility] Hemoglobin 10.2(L) 11.7 - 15.5 g/dL [facility] Hematocrit 30.2(L) 35.7 - 45.8 % [facility] Mean Cell Volume 97.1(H) 82.6 - 94.4 fL [facility] Mean Cell Hemoglobin 32.8(H) 27.1 - 32.0 pg [facility] Mean Cell Hemoglobin Concentration 33.8 31.7 - 35.0 g/dL [facility] Platelet 151 145 - 357 x10(3)/ L [facility] RDW Standard Deviation 44.9 37.0 - 46.0 fL [facility] RDW coefficient of variation 12.8 11.5 - 14.1 % [facility] Mean Platelet Volume 9.8 7.6 - 12.9 fL [facility] NRBC% auto 0.0 % [facility] NRBC Absolute 0.000 0.000 - 0.000 x10(3)/mc L [facility] Blood 05/10/2023 2:28 AM EDT 05/10/2023 2:57 AM EDT Narrative Resulting Agency Comment Spec In Lab Klaudia Reid MD HEMATOLOGY OR DERABLES Performing Organization Address City/State/[facility] Co de Phone Number [facility] [place] [address] * (ABNORMAL) Comprehensive metabolic panel (non-fasting) (05/10/2023 2:28 AM EDT) Glucose 100 65 - 199 mg/dL [facility] Comment:Diabetes: >=200 mg/d L plus symptoms Blood Urea Nitrogen 30(H) 8 - 18 mg/dL [facility] Creatinine 0.90 0.70 - 1.20 mg/dL [facility] Sodium 134(L) 135 - 145 mmol/L [facility] Potassium 4.1 3.5 - 5.0 mmol/L [facility] Comment: Please note: ??Patients with WBC >100,000 may have falsely elevated Potassium levels. ??For accurate Potassium quantification in these patients send serum separator tube (gold top) for subsequent determinations. ??Contact the Clinical Chemistry Laboratory if there are any questions. Chloride 102 98 - 107 mmol/L [facility] Carbon Dioxide 20(L) 22 - 31 mmol/L [facility] Anion Gap 12 5 - 15 mmol/L [facility] Calcium 9.3 8.5 - 10.5 mg/dL [facility] Protein, Total 6.4 6.1 - 8.0 g/dL [facility] Albumin 3.7 3.2 - 5.2 g/dL [facility] Aspartate Aminotransferase 24 0 - 30 unit/L [facility] Alanine Aminotransferase 14 0 - 30 unit/L [facility] Alkaline Phosphatase 70 35 - 105 unit/L [facility] Bilirubin, Total 0.5 0.2 - 1.3 mg/dL [facility] Est Glomerular Filtration Rate 70 >=60 mL/min/1. 73 m?? [facility] Comment: This patient's [...] Lab Radha Hollins MD CHEMISTRY ORDERABL ES [facility] [place] [address] * Heparin (unfractionated) Level (05/10/2023 2:28 AM EDT) UF Heparin 0.37 IU/mL [facility] Comment: Heparin [...] Lab Radha Hollins MD [place] [address] * (ABNORMAL) Differential, Automated (05/09/2023 4:00 AM EDT) Neutrophil % 81.7 % [facility] Neutrophil Absolute 5.26 1.70 - 6.10 x10(3)/mc L [facility] Lymph % 10.7 % [facility] Lymphocytes Abs 0.7(L) 0.9 - 3.2 x10(3)/mc L [facility] Monocyte % 6.5 % [facility] Monocyte Abs 0.4 0.3 - 0.9 x10(3)/mc L [facility] Eos % 0.5 % [facility] Eosinophils Abs 0.0 0.0 - 0.4 x10(3)/mc L [facility] Basophil % 0.3 % [facility] Baso Absolute 0.0 0.0 - 0.1 x10(3)/mc L [facility] Immature Gran % 0.30 % [facility] Comment: Immature granulocytes(IG's)percentage and absolute count will include metamyelocytes, myelocytes, and promyelocytes. Blood smears from CBCs yielding IG's will be scanned manually for concordance. If this scan disagrees with the automated IG or if promyelocytes are noted, a manual differential will be performed. Immature Gran Absolute 0.02 0.00 - 0.04 x10(3)/mc L [facility] Blood 05/09/2023 4:00 AM EDT 05/09/2023 4:19 AM EDT Narrative Resulting Agency Comment Spec In Lab Klaudia Reid MD HEMATOLOGY OR DERABLES Performing Organization Address City/[facility]/ZIP Co de Phone Number [facility] [place] [place] [address] * (ABNORMAL) Hemogram (05/09/2023 4:00 AM EDT) White Blood Cell 6.4 4.0 - 9.5 x10(3)/mc L [facility] Red Blood Cell 3.15(L) 4.00 - 5.21 x10(6)/mc L [facility] Hemoglobin 10.2(L) 11.7 - 15.5 g/dL [facility] Hematocrit 30.3(L) 35.7 - 45.8 % [facility] Mean Cell Volume 96.2(H) 82.6 - 94.4 fL [facility] Mean Cell Hemoglobin 32.4(H) 27.1 - 32.0 pg [facility] Mean Cell Hemoglobin Concentration 33.7 31.7 - 35.0 g/dL [facility] Platelet 151 145 - 357 x10(3)/mc L [facility] RDW Standard Deviation 44.7 37.0 - 46.0 fL [facility] RDW coefficient of variation 12.8 11.5 - 14.1 % [facility] Mean Platelet Volume 9.4 7.6 - 12.9 fL [facility] NRBC% auto 0.0 % [facility] NRBC Absolute 0.000 0.000 - 0.000 x10(3)/ L [facility] Blood 05/09/2023 4:00 AM EDT 05/09/2023 4:19 AM EDT Narrative Resulting Agency Comment Spec In Lab Klaudia Reid MD HEMATOLOGY OR DERABLES Performing Organization Address City/State/[facility] Co de Phone Number [facility] [place] [address] * Heparin (unfractionated) Level (05/09/2023 4:00 AM EDT) UF Heparin 0.47 IU/mL [facility] Comment: Heparin (anti-Xa) levels should [...] Lab Radha Hollins MD HEMATOLOGY ORDERAB LES [facility] [place] [address] * (ABNORMAL) Comprehensive metabolic panel (non-fasting) (05/09/2023 4:00 AM EDT) Glucose 108 65 - 199 mg/dL [facility] Comment:Diabetes: >=200 mg/d L plus symptoms Blood Urea Nitrogen 31(H) 8 - 18 mg/dL [facility] Creatinine 1.03 0.70 - 1.20 mg/dL [facility] Sodium 137 135 - 145 mmol/L [facility] Potassium 4.4 3.5 - 5.0 mmol/L [facility] Comment: Please note: ??Patients with WBC >100,000 may have falsely elevated Potassium levels. ??For accurate Potassium quantification in these patients send serum separator tube (gold top) for subsequent determinations. ??Contact the Clinical Chemistry Laboratory if there are any questions. Chloride 102 98 - 107 mmol/L [facility] Carbon Dioxide 20(L) 22 - 31 mmol/L [facility] Anion Gap 15 5 - 15 mmol/L [facility] Calcium 9.3 8.5 - 10.5 mg/dL [facility] Protein, Total 6.6 6.1 - 8.0 g/dL [facility] Albumin 3.8 3.2 - 5.2 g/dL [facility] Aspartate Aminotransferase 32(H) 0 - 30 unit/L [facility] Alanine Aminotransferase 18 0 - 30 unit/L [facility] Alkaline Phosphatase 78 35 - 105 unit/L [facility] Bilirubin, Total 0.5 0.2 - 1.3 mg/dL [facility] Est Glomerular Filtration Rate 60 >=60 mL/min/1. 73 m?? [facility] Comment: This patient's [...] ES Performing Organization Address [facility] Co de Phone Number [facility] [place] [place] [address] * (ABNORMAL) pro-Brain Natriuretic Peptide (05/08/2023 4:00 PM EDT) NT-proBNP 25,503(H) <=124 pg/mL [facility] Blood Venous Draw / Unknown 05/08/2023 4:00 PM EDT 05/08/2023 4:25 PM EDT Narrative Resulting Agency Comment Spec In Lab Juan Luis Gonzalez MD CHEMISTRY ORDERABLES Performing Organization Address [facility] Co de Phone Number [facility] [place] [address] * Magnesium (05/08/2023 4:00 PM EDT) Magnesium 0.82 0.69 - 1.07 mmol/L [facility] Blood 05/08/2023 4:00 PM EDT 05/08/2023 4:06 PM EDT Narrative Resulting Agency Comment Spec In Lab Enrique Chua MD CHEMISTRY ORDERABLES Performing Organization Address [facility] Co de Phone Number [facility] [place] [address] * Potassium (05/08/2023 4:00 PM EDT) Potassium 3.9 3.5 - 5.0 mmol/L [facility] Comment: Please note: ??Patients [...] ES Performing Organization Address [facility] Co de Phone Number [facility] [place] [address] * Heparin (unfractionated) Level (05/08/2023 4:00 PM EDT) UF Heparin 0.43 IU/mL [facility] Comment: Heparin [...] HEMATOLOGY ORDERAB LES Performing Organization Address [facility]/ZIP Co de Phone Number [facility] [place] [address] * EKG 12 Lead (05/08/2023 3:51 PM EDT) Ventricular rate 98 BPM MUSE SYSTEM Atrial Rate 98 BPM MUSE SYSTEM P-R Interval 150 ms MUSE SYSTEM QRS Duration 102 ms MUSE SYSTEM Q-T Interval 358 ms MUSE SYSTEM QTC Calculated (Bezet) 457 ms MUSE SYSTEM Calculated P Mcalpin 38 degrees MUSE SYSTEM Calculated R Mcalpin 48 degrees MUSE SYSTEM Calculated T Mcalpin -112 degrees MUSE SYSTEM INTERPRETATION Sinus rhythm with frequent and consecutive Premature ventricular and fusion complexes Septal infarct , age undetermined ST & T wave abnormality, consider anterolateral ischemia Abnormal ECG When compared with ECG of 09-NOV-2022 11:17, T wave inversion now evident in Anterolateral leads Confirmed by MD Harshil, Enrique Bell ([id number]) on 05/10/2023 8:11:46 AM MUSE SYSTEM 05/08/2023 3:51 PM EDT 05/10/2023 8:11 AM EDT Radha Hollins MD ECG ORDERABLES MUSE SYSTEM * (ABNORMAL) Differential, Automated (05/08/2023 11:38 AM EDT) Pathologist [facility] Neutrophil % 71.3 % [facility] Neutrophil Absolute 2.91 1.70 - 6.10 x10(3)/mc L [facility] Lymph % 19.1 % [facility] Lymphocytes Abs 0.8(L) 0.9 - 3.2 x10(3)/mc L [facility] Monocyte % 9.0 % [facility] Monocyte Abs 0.4 0.3 - 0.9 x10(3)/mc L [facility] Eos % 0.2 % [facility] Eosinophils Abs 0.0 0.0 - 0.4 x10(3)/mc L [facility] Basophil % 0.2 % [facility] Baso Absolute 0.0 0.0 - 0.1 x10(3)/mc L [facility] Immature Gran % 0.20 % [facility] Comment: Immature granulocytes(IG's)percentage and absolute count will include metamyelocytes, myelocytes, and promyelocytes. Blood smears from CBCs yielding IG's will be scanned manually for concordance. If this scan disagrees with the automated IG or if promyelocytes are noted, a manual differential will be performed. Immature Gran Absolute 0.01 0.00 - 0.04 x10(3)/mc L [facility] Blood 05/08/2023 11:3 8 AM EDT 05/08/2023 11:44 AM EDT Narrative Resulting Agency Comment Spec In Lab Lincoln Sal MD HEMATOLOGY ORDERA BLES [facility] [place] [address] * (ABNORMAL) Hemogram (05/08/2023 11:38 AM EDT) White Blood Cell 4.1 4.0 - 9.5 x10(3)/mc L [facility] Red Blood Cell 3.05(L) 4.00 - 5.21 x10(6)/[facility] Hemoglobin 10.2(L) 11.7 - 15.5 g/dL [facility] Hematocrit 29.6(L) 35.7 - 45.8 % [facility] Mean Cell Volume 97.0(H) 82.6 - 94.4 fL [facility] Mean Cell Hemoglobin 33.4(H) 27.1 - 32.0 pg [facility] Mean Cell Hemoglobin Concentration 34.5 31.7 - 35.0 g/dL [facility] Platelet 136(L) 145 - 357 x10(3)/mc L [facility] RDW Standard Deviation 44.3 37.0 - 46.0 fL [facility] RDW coefficient of variation 12.6 11.5 - 14.1 % [facility] Mean Platelet Volume 9.4 7.6 - 12.9 fL [facility] NRBC% auto 0.0 % [facility] NRBC Absolute 0.000 0.000 - 0.000 x10(3)/mc L [facility] Blood 05/08/2023 11:3 8 AM EDT 05/08/2023 11:44 AM EDT Narrative Resulting Agency Comment Spec In Lab Lincoln Sal MD HEMATOLOGY ORDERA BLES Performing Organization Address City/[facility] Co de Phone Number [facility] [place] [address] * TSH (05/08/2023 11:38 AM EDT) Thyroid Stimulating Hormone 1.27 0.27 - 4.20 mcIU/mL [facility] Comment: Reference Interval (mcIU/mL): Females: ??First Trimester: 0.23-3.88 ??Second Trimester: 0.22-3.90 ??Third Trimester: 0.44-4.66 Blood 05/08/2023 11:3 8 AM EDT 05/08/2023 11:44 AM EDT Narrative Resulting Agency Comment Spec In Lab Enrique Chua MD CHEMISTRY ORDERABLES Performing Organization Address [facility] Co de Phone Number [facility] [place] [address] * (ABNORMAL) Phosphorus (05/08/2023 11:38 AM EDT) Phosphorus 4.7(H) 2.5 - 4.5 mg/dL [facility] Blood 05/08/2023 11:3 8 AM EDT 05/08/2023 11:44 AM EDT Narrative Resulting Agency Comment Spec In Lab Enrique Chua MD CHEMISTRY ORDERABLES Performing Organization Address City/[facility] Co de Phone Number [facility] [place] [address] * Magnesium (05/08/2023 11:38 AM EDT) Magnesium 0.76 0.69 - 1.07 mmol/L [facility] Blood 05/08/2023 11:3 8 AM EDT 05/08/2023 11:44 AM EDT Narrative Resulting Agency Comment Spec In Lab Enrique Chua MD CHEMISTRY ORDERABLES Performing Organization Address City/[facility]/ZIP Co de Phone Number [facility] [place] [address] * (ABNORMAL) Basic Metabolic Panel (non-fasting) (05/08/2023 11:38 AM EDT) Glucose 97 65 - 199 mg/dL [facility] Comment:Diabetes: >=200 mg/d L plus symptoms Blood Urea Nitrogen 27(H) 8 - 18 mg/dL [facility] Creatinine 1.02 0.70 - 1.20 mg/dL [facility] Sodium 139 135 - 145 mmol/L [facility] Potassium 4.2 3.5 - 5.0 mmol/L [facility] Comment: Please note: ??Patients with WBC >100,000 may have falsely elevated Potassium levels. ??For accurate Potassium quantification in these patients send serum separator tube (gold top) for subsequent determinations. ??Contact the Clinical Chemistry Laboratory if there are any questions. Chloride 105 98 - 107 mmol/L [facility] Carbon Dioxide 20(L) 22 - 31 mmol/L [facility] Anion Gap 14 5 - 15 mmol/L [facility] Calcium 9.4 8.5 - 10.5 mg/dL [facility] Est Glomerular Filtration Rate 60 >=60 mL/min/1. 73 m?? [facility] Comment: This patient's [...] In Lab Enrique Chua MD CHEMISTRY ORDERABLES [facility] [place] [address] * ECHO COMPLETE (05/08/2023 11:02 AM EDT) EF 25 HEARTLAB SYSTEM Anatomical Region Laterality Modality Cardiac Other 05/08/2023 10:0 3 AM EDT Narrative 05/08/2023 11:51 AM EDT ? Echocardiogram Report Name: PURNIMA THACKER ?Study Date: 05/08/2023 10:03 AMBP: 92/64 mmHg ? Patient Location: [facility]^CV29^A : 1955 ? Height: 155 cm ? Account: [id number] Age: 67 yrs ? Weight: 78 kg [...] worsening stenosis. Mitral regurgitation is similar. Procedure Complete-78257. Satisfactory quality. There is normal sinus rhythm. [...] Study Date: 0:03 AMBP: 92/64 mmHg Patient Location:[facility]^CV29^A : 1955 Height: 155 cm Account: [id number] Age: 67 yrs Weight: 78 kg Gender: [...] suggestsworsening stenosis. Mitral regurgitation is similar. Procedure Complete-[id number]. Satisfactory quality. There is normal sinus rhythm. 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 Mild coronary artery disease by [facility] 11/09/2022 Mixed connective tissue disease [...] ejection fraction Mild coronary artery disease by [facility] 11/09/2022 Stenosis of prosthetic aortic [...] dose on Wed05/12/23 at 1030, Until Discontinued, [place] teeth, Routine Given 05/12/2023 10:04 AM EDT [...] at 0831, Side port TKO rate, per [facility] flush protocol Rate/Dose Verify 05/13/2023 6:00 AM EDT 10 mL/hr 10 mL/hr Rate/Dose Verify 05/13/2023 4:00 AM EDT 10 mL/hr 10 mL/h r Rate/Dose Verify 05/13/2023 2:00 AM EDT 10 mL/hr 10 mL/h r sodium chloride 0.9% infusion 10-30 mL/hr, Intravenous, DAILY PRN, Starting on Wed05/12/23 at 0944, Until Wed05/17/23 at 0831, Side port TKO rate, per [facility] flush protocol. Rate/Dose Verify 05/17/2023 8:00 [...] Gabino Calhoun, VALDO)1958 (Stopped - Provider: Favian Mckeon RN) magnesium [...] post-op day 1 in the AM Give VA if unable to take PO, Routine Group [...] Routine documented in this encounter Care Teams Grid Casting Machine Operator Helper Relationship Specialty Start Date End Date Magdalena Acosta MD [address] [place] [address] PCP - General Family Medicine 02/05/23 documented as of this encounter
--- OUTSIDE RECORDS SUMMARY | 2024-06-08 14:11 | XMS_ITS | Encounter Summary ---
Author Organization [place] [id number] Care Team Providers Care Parimutuel Ticket Cashier Name Role Phone Magdalena Acosta MD Primary Care Provider [phone] Reason for Visit * Auth/Cert (Routine) Specialty Diagnoses / Procedures Referred By Contac t Referred To Contact Diagnoses Symptomatic severe aortic stenosis with low ejection fraction NSTEMI, CHF Haris Chua MD [facility] [place] [address] [facility] Referral ID Status Reason Start Date Expiration Date Visits Re quested Visits Authorized [id number] 1 1 Encounter Details Date Type Department Care Team (Late st Contact Info) Description 05/12/2023 7:35 AM EDT Anesthesia [place] [address] Lynda Mcgowan MD [facility] [place] [address] Alie Park MD [facility] [place] [address] Anesthesia Record Procedure Summary Procedure Name Responsible [...] cephalic vein (lateral side of arm), left; [id number] catheter system; Anatomical Landmarks; US Not Used; [...] RN LDA Cath/EP Sheath 05/12/23; 0733; 14 Trinidadian (Fr); Right; Femoral; Arterial 05/12/23 0733 by Guerda Bender, RN 05/12/23 0830 by Guerda Bender RN LDA Cath/EP Sheath 05/12/23; 0734; 6 Trinidadian (Fr); Right; Femoral; Venous 05/12/23 0734 by Guerda Bender RN 05/12/23 0817 by Guerda Bender RN LDA Cath/EP Sheath 05/12/23; 0734; 7 Trinidadian (Fr); Left; Femoral; Arterial 05/12/23 0734 by Guerda Bender, RN 05/12/23 0837 by Guerda Bender RN LDA Cath/EP Sheath 05/12/23; 0734; 6 Trinidadian (Fr); Left; Femoral; Venous 05/12/23 0734 by [...] Procedure Summary Date: 05/12/23 Room / Location: [employer] / [facility] Anesthesia Start: 734 Anesthesia [...] All Anesthesia Providers: Anesthesiologist: Lynda Mcgowan MD High Frequency Mill Operator: Nico Graham MD Vitals Value Taken Time [...] 05/08/2023 ??? Mild coronary artery disease by [facility] 11/09/2022 05/08/2023 ??? Heart failure [...] IMG S&I N/A 11/09/2022 CORONARY ANGIOGRAPHY; W [facility],POSSIBLE PCI (WRVU 5.6) performed by Nitesh Escobedo MD at [facility] ??? PRO AORTOPLAS FOR SUPRAVALV STEN N/A 09/21/2016 @AORTOPLASTY FOR SUPRAVALVULAR STENOSIS (WRVU 29.33) performed by Alirio Esparza MD at [facility] MAIN OR ??? PRO REPLACEMENT PROSTHETIC AORTIC VALVE OPEN W CARDIOPULMONARY BYPASS HOMOGRF/STENT N/A 09/21/2016 @REPLACE AORTIC VALVE, OPEN, W\CPB, W\PROSTHETIC VALVE (WRVU 41.32) performed by Alirio Esparza MD at [facility] MA[facility] OR Social History Tobacco Use [...] 3 general, with a(n) intravenous induction Add-on [id number] TAVR. In cardiogenic shock. Has arterial line, [...] Visit Hemat[place] [address] Markel Borjas MD [facility] [address] [place] [address] 11/02/2024 12:00 PM EDT [place]oint[place] [phone] 11/02/2024 1:00 PM EDT Office [place] [address] Magdalena Peralta MD [facility] [place] [address] 03/01/2025 4:15 PM EDT Office Visit Dermatology at [address] [place] [phone] Marek Bonilla MD [address], [place] [address] documented as of this encounter Visit Diagnoses [...] mL/hr documented in this encounter Care Teams Parimutuel Ticket Cashier Relationship Specialty Start Date End Date Magdalena Acosta MD [address] [place] [address] PCP - General Family Medicine 02/05/23 documented as of this encounter
--- OUTSIDE RECORDS SUMMARY | 2024-06-08 14:11 | XMS_ITS | Encounter Summary ---
Author Organization [facility] Address [facility] [place] [address] Care Team Providers Care Automatic Developer Name Role Phone Magdalena Acosta MD Primary Care Provider [phone] Encounter Details Date Type Department Care Team [...] EST Office Visit Hematology [place] [address] Markel Borjas MD [facility] [address] [place] [address] 11/02/2024 12:00 PM EDT Appointment [place] [phone] 11/02/2024 1:00 PM EDT Office [place] [address] Magdalena Peralta MD [facility] [place] [address] 03/01/2025 4:15 PM EDT Office Visit Dermatology at [place] [address] [facility] [place] [phone] Marek Bonilla MD [address], [place] [address] documented as of this encounter Visit Diagnoses Not on filedocumented in this encounter Care Teams Automatic Developer Relationship Specialty Start Date End Date Magdalena Acosta MD [address] [place] [address] PCP - General Family Medicine 02/05/23 documented as of this encounter
--- OUTSIDE RECORDS SUMMARY | 2024-06-08 14:12 | XMS_ITS | Encounter Summary ---
Author Organization [facility] [place] [address] Care Team Providers Care Immigration Specialist Name Role Phone Magdalena Acosta MD Primary Care Provider [phone] Reason for Visit * Auth/Cert (Routine) Specialty Diagnoses / Procedures Referred By Contac t Referred To Contact Diagnoses Symptomatic severe aortic stenosis with low ejection fraction NSTEMI, CHF Enrique Chua MD [facility] [place] [address] [facility] Referral ID Status Reason Start Date Expiration Date Visits Re quested Visits Authorized [id number] 1 1 Encounter Details Date Type Department Care Team (Late st Contact Info) Description 05/12/2023 2:50 PM EDT - 05/12/2023 3:50 PM EDT [place] [address] Antelmo Sharma MD [facility] [place] [address] CARDIAC CATHETERIZATION Social History Tobacco Use Types [...] with PCP, Magdalena Acosta MD, or Primary Temple Meat Cutter, Avsi Mejia MD, in ~ 7-10 days. Patient to follow up with Architecture Analyst, Dr. Antelmo Sharma, in 2 weeks with an EKG, Echo, CBC, and CMP. Patient to follow up with Nephrology, their office to arrange. Nzrx-Rpvewg-pq interval: After initial 30 day follow-up appointment , all TAVR patients will follow-up again in one year with an echo. Inpatient Provider Contact Information: [facility] Section of Cardiac Surgery [facility] [address] FAX [phone] Discharge Diagnoses (Hospital Problems) Primary Diagnoses: Prosthetic [...] Major Procedures/Operations: 05/12/23: Successful right transfemoral TAVR Fgzzy-pj-Nthtx with a 23 mm Lai 3 THV. Left coronary protection with left main MINNA. 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 [...] if you have questions. Please call your Architecture Analyst's office if you have any discharge or drainage from your procedural sites. Your Architecture Analyst, Dr. Antelmo Sharma and/or the Vending Machine Host/Hostess may be reached at . Antibiotic prophylaxis: You will need to take antibiotics prior to many invasive tests and treatments, such as dental cleaning, which should be done every 6 months. Your primary care physician or your dentist can prescribe this medication. Please refer to the card with the [place] [employer] Guidelines for more information. You have been provided with a copy of this card. Please refer to the [place] [employer] Guidelines for more information. Good [...] should resume a low fat, low cholesterol, [place] [employer] Diet Driving: No restrictions. Shower/Bath: You may shower daily. No baths, soaking, or swimming for the first week. Wound care: Wash the sites daily with soap and rinse well, pat dry. Assess for any signs of infection such as increased redness, pain, warmth or drainage. Please call your utility sales representative's office if you have any discharge or drainage from your procedural sites. If there is a lot of swelling, apply mamta wraps during the day and remove at bedtime. Elevate your legs when you are sitting. Home oxygen therapy: N/A Follow up appointments: Please schedule a follow-up appointment with your PCP, Magdalena Acosta MD, or Primary Temple Meat Cutter in ~ 7-10 days. You have a follow-up appointment with your Architecture Analyst, Dr. Antelmo Sharma, in 2 weeks with an EKG, Echo, and labs prior to your appointment. You will need follow-up with Nephrology, their office will arrange. Fsel-Zquwfn-ni interval: After initial 30 day follow-up appointment [...] 11:00 AM Magdalena Peralta MD Rheumatology at [facility] Arrive at: Hand Hose Cutter Area [phone] 02/11/2024 2:00 PM Marek Bonilla MD Dermatology at [place] Arrive at: [facility] [address] [phone] Future Orders Complete By Expires Type and Screen Future Surgery, [facility] SAME DAY PROGRAM ONLY) [UMS5303 Custom] 05/11/2023 Process Instructions: This test is intended ONLY for patients with upcoming surgery for testing prior to the day of surgery obtained through the same day program (4V or SDP). For ALL OTHER PATIENTS, order a Type and Screen (DNW360) This order includes the physician order for an ABO Recheck if requested by the Blood Bank. Scheduling Instructions: Comments: Questions: Date of surgery: CBC (with Diff) [RHX118 Custom] 06/05/2023 12/05/2023 Process Instructions: INCLUDES: WBC, RBC, Hgb, Hct, Platelets, RBC Indices and Differential Scheduling Instructions: Comments: Questions: Comprehensive metabolic panel (non-fasting) [LAB17 Custom] 06/05/2023 08/20/2023 Process Instructions: INCLUDES: Calcium, T Protein, Albumin, AST, ALT, Alk Phos, T Bili, BUN, Creat, GFR, Glucose, Lytes. Scheduling Instructions: Comments: Questions: Echocardiogram Transthoracic [76639 CPT(R)] 06/05/2023 12/05/2023 Process Instructions: Scheduling Instructions: Questions: Where will study be performed?: [facility] Clinics Does the patient have Congenital Heart Disease?: Does patient require sedation?: GA rationale: EKG 12 Lead [57145 CPT(R)] 06/05/2023 12/05/2023 Process Instructions: Scheduling Instructions: Questions: Which location will this be performed?: [place] Is a rhythm strip needed?: No [facility] Devices [EQ161 Custom] As directed Process Instructions: Scheduling Instructions: Questions: Device Needed: WALKER (E0143) Patient Height (cm): 154.9 cm (5' 0.98) Patient Weight: 75.4 kg (166 lb 3.2 oz) Diagnosis: Unsteady gait when walking Referral to Cardiac Rehab [JVF510 Custom] As directed Process Instructions: If no progress note charted, please enter Clinical details in comments. Scheduling Instructions: Questions: My question or request is: s/p TAVR. Cardiac rehab at [facility]. Referral to Home Health [REF34 Custom] As directed Process Instructions: If no progress note charted, please enter Clinical details in comments. Scheduling Instructions: Comments: DOCUMENTATION FOR VNA SERVICES PATIENT'S LOCATION: Purnima Thacker [address] [place] [phone] (home) House Mover's Name: Irineo and brother Raymond In discussion with the attending physician, it is certified that this patient is under his/her careand that MD, or an FITNESS CLUB MANAGER, JIRA DEVELOPER, or PA who is working directly with him/her, had a skcj-qw-swcs encounter that meets the physician bvux-da-vlic encounter requirements with this patient on 05/22/2023. [...] for managing ADLs. HOME HEALTH CARE AGENCY: [facility]. [address] [facility] [address] PHONE: [phone] FAX: [phone] Start of care: Ideally 24-48 hours after [...] patient's PCP: Magdalena Acosta MD [address] [facility] [phone] All VNA agencies which cover the area of patient's residence have been reviewed, either verbally joao writing, and patient has chosen the home health care agency noted. Questions: Disciplines Requested: Physical Therapy Occupational Therapy Discharge References/Attachments None Arrangements for VNA/home care: As above. (delete if no VNA) Signed: EKATERINA NAVARRETE [facility] Section of Cardiac Surgery Date: 05/22/2023 CC: Magdalena Acosta MD [place] HeightsMario Alberto maxwell MD [address] [place] [address] [place] [address] documented in this encounter Discharge Instructions * Patient Instructions* Vinod Juárez PA - 05/22/2023 9:32 AM EDT TAVR Discharge Instructions: Call your doctor if: You have a fever of greater than 101 degrees, shaking chills, if you develop redness or drainage from your procedure sites, or if you have questions. Please call your Architecture Analyst's office if you have any discharge or drainage from your procedural sites. Your Architecture Analyst, Dr. Antelmo Sharma and/or the Vending Machine Host/Hostess may be reached at . Antibiotic prophylaxis: You will need to take antibiotics prior to many invasive tests and treatments, such as dental cleaning, which should be done every 6 months. Your primary care physician or your dentist can prescribe this medication. Please refer to the card with the [place] [employer] Guidelines for more information. You have been provided with a copy of this card. Please refer to the [place] [employer] Guidelines for more information. Good [...] should resume a low fat, low cholesterol, [place] [employer] Diet Driving: No restrictions. Shower/Bath: You may shower daily. No baths, soaking, or swimming for the first week. Wound care: Wash the sites daily with soap and rinse well, pat dry. Assess for any signs of infection such as increased redness, pain, warmth or drainage. Please call your utility sales representative's office if you have any discharge or drainage from your procedural sites. If there is a lot of swelling, apply mamta wraps during the day and remove at bedtime. Elevate your legs when you are sitting. Home oxygen therapy: N/A Follow up appointments: Please schedule a follow-up appointment with your PCP, Magdalena Acosta MD, or Primary Temple Meat Cutter in ~ 7-10 days. You have a follow-up appointment with your Architecture Analyst, Dr. Antelmo Sharma, in 2 weeks with an EKG, Echo, and labs prior to your appointment. You will need follow-up with Nephrology, their office will arrange. Eehg-Pdgjzc-nb interval: After initial 30 day follow-up appointment [...] ins ( tef) Haven Ba, PT Pager: [phone] Physical Therapy Inpatient Rehabilitation Department * Nico [...] on the weekends please page [phone]. * Jory Paniagua - 05/20/2023 3:52 PM [...] vomiting Last Bowel Movement: 05/20/23 Jory Paniagua Can Capper * Tong Mike, OT - 05/20/2023 3:16 [...] (TAVR), PERCUTANEOUS FEMORAL (WRVU 22.47) performed by Aliiro Hudson MD at [facility] [...] three steps to enter. DME: none used EDUCATIONAL FUNDRAISING DIRECTOR Baseline ADL/Mobility: Independent with ADLs and [...] Discharge planning. Total Minutes, Occupational Therapy: 28 ([phone]) OT Evaluation Code Rationale: Diagnosis & Pertinent Co-Morbidities affecting Plan of Care: see PMHx Occupational Profile & Client History: Brief Expanded Extensive x Assessment of Occupational Performance: 1-3 performance deficits 3-5 performance deficits x 5 + performance deficits Clinical Decision Making: Low Moderate High x Clinical decision making of moderate complexity using standardized patient assessment instrument and measurable assessment of functional outcome. Pager: [phone] TONG MIKE OT 05/20/2023 Occupational Therapy Rehabilitation [...] 0600 and on the weekends please page [phone]. * Rylie Rodriguez MD - 05/19/2023 3:59 [...] and plan. Cynthia Blackburn MD Nephrology Pager: [phone] * Diaan Espino - 05/19/2023 1:49 PM EDT Hotel Maintenance Worker Encounter Note Patient Name: Purnima Thacker : [id number] MR#: [id number] Admit Date: 05/08/2023 9:14 AM Hospital Day [...] as stated. Total Minutes, Physical Therapy: 38 ([id number]) Henrik Navarrete PTA Pager: [phone] Physical Therapy Inpatient Rehabilitation Department * Nico [...] 0600 and on the weekends please page [phone]. * Laure Ricks PA - 05/19/2023 7:56 [...] Ricks PA-C Interventional Radiology IR Team Pager [phone] * Consuelo Espinoza RN - 05/18/2023 4:13 PM EDT ANGIO NURSING DATABASE Name: Purnima Thacker Date of : 1955 AGE: 67 y.o. Address: [address] [place] [phone] (home) Mobile: No relevant phone numbers on [...] and plan. Cynthia Blackburn MD Nephrology Pager: [phone] * Magdalena Puri, LEARNING PROGRAM MANAGER - 05/18/2023 10:51 AM EDT Images from the original note were not included. Formerly [facility] [place] [address] STRUCTURAL HEART DISEASE CONSULTATION NOTE PRIMARY CARE [...] stenosis. She is now status post TAVR Xeskf-xu-Wgnoy with a 23 mm Lai 3 THV 05/12/[address] Sharma. Preliminary findings: Successful right transfemoral TAVR Ktiqn-gx-Cvvjn with a 23 mm Lai 3 THV. [...] mg 90 mg Oral BID Mara Serrano LEARNING PROGRAM MANAGER 90 mg at 05/18/23 0825 sodium [...] stenosis. She is now status post TAVR Tocmt-us-Dvecp with a 23 mm Lai 3 THV 05/12/[address] Sharma. Janet TAVR case notable for coronary LAD protective MINNA. Status post TAVR, the patient was transferred to [facility] for pressor and inotropic support. Pressors [...] Magdalena Puri APRN Structural Heart Team Pager [phone] Team Office Please see addendum by Dr. Sharma for final plan and recommendations Associated attestation - Antelmo Sharma MD - 05/19/2023 10:52 PM EDT I have reviewed Magdalena Puri APRN's above history and I agree with the details as written. The assessment and plan were formulated in discussion with me and I agree with them as documented. Antelmo Sharma MD Pager [phone] * Nico Palacios PA - 05/18/2023 8:13 [...] 0600 and on the weekends please page [phone]. * Loli Hernandez, PT - 05/17/2023 5:27 [...] plan as stated. Time IN / OUT: 0666-4021 Total Minutes, Physical Therapy: 54 Billing Code: te-sx2, te-f, angely HERNANDEZ PT Pager: [phone] Physical Therapy Inpatient Rehabilitation Department * Cynthia [...] Well controlled. Cynthia Blackburn MD Nephrology Pager: [phone] * Hinton, Mara, ANURAG - 05/17/2023 8:26 AM EDT [...] 0600 and on the weekends please page [phone]. * CurtistierneymeccaGuerda C - 05/16/2023 10:44 AM EDT Nutrition Services Note - Low Nutrition Acuity Purnima Thacker is a 67 y.o. female Reason for intervention: hospital day 9 Nutrition Plan: Continue diet order Encourage good PO Lasix and Zofran noted Added special serve: open containers Monitor weight Patient scheduled for a hospital day 9 nutrition evaluation. Laborer Salvage met with pt at bedside. Pt reports that her appetite and PO has much improved since admission. Denies nausea/vomiting or trouble chewing/swallowing. Laborer Salvage provided snack list but pt not interested in adding snacks at this time. Her only concern was that she is worried that she will eat too much which will cause too much pressure in her stomach. Laborer Salvage assured pt and suggested eating smaller but [...] Last Bowel Movement: 05/10/23 Guerda Del Valle Can Capper * Vinod Juárez PA - 05/16/2023 10:19 [...] 0600 and on the weekends please page [phone]. * Michael Jeffers MD - 05/16/2023 8:11 AM EDT Images from the original note were not included. Hypertension-Nephrology Inpatient Follow-up Purnima Thacker [id number] 1955 ID: 67 y.o. old female seen [...] IRONSAT 12 (L) 05/16/2023 SFOLATE >20.0 07/03/2022 [id number] 07/03/2022 Lab Results Component Value Date [...] Dr. Ayoub. Please contact me at phone: [phone] or pager: [phone] with any questions. Michael Jeffers MD Nephrology [...] -Nephrology consulted, labs and renal US ordered -Vienna removed, ambulated around the unit -bilateral pleural [...] 0600 and on the weekends please page [phone]. * Hortencia Cody MD - 05/15/2023 2:07 [...] not included. Hypertension-Nephrology Inpatient Follow-up Purnima Thacker [id number] 1955 ID: 67 y.o. old female seen [...] HGB 7.8 (L) 05/13/2023 SFOLATE >20.0 07/03/2022 [id number] 07/03/2022 Lab Results Component Value Date ALBUMIN 3.6 05/14/2023 ALBUMIN 3.0 (L) 05/13/2023 ALBUMIN 3.5 05/12/2023 Assessment & Plan: Purnmia Thacker is a 67 y.o. female admitted [...] Dr. Ayoub. Please contact me at phone: [phone] or pager: [phone] with any questions. Michael Jeffers MD Nephrology [...] last 720 hours. T/L/D Art ETT CVL Winters ASSESSMENT, MANAGEMENT, and DECISION MAKIN y.o. female with h/o SAVR 09/2016 (bovine pericardial 25 mm), HFrEF, HTN, DLP, NCIOLAS, mixed connective tissues disease, now s/p valve [...] outlined inthis evaluation. HAVEN BA, PT Pager: [phone] Physical Therapy Inpatient Rehabilitation Department Time IN / OUT: 3708-4198 Total time: Total Minutes, Physical Therapy: 30 [...] 0600 and on the weekends please page [phone]. * Antelmo Sharma MD - 05/14/2023 7:56 AM EDT Images from the original note were not included. [facility] [address] [place] [address] STRUCTURAL HEART DISEASE CONSULTATION NOTE PRIMARY CARE [...] stenosis. She is now status post TAVR Pnzxo-ru-Duyrw with a 23 mm Lai 3 THV 05/12/[address] Sharma. Preliminary findings: Successful right transfemoral TAVR Amnjt-bd-Ddacy with a 23 mm Lai 3 THV. [...] stenosis. She is now status post TAVR Ekpzy-az-Llaul with a 23 mm Lai 3 THV 05/12/[address] Sharma. Janet TAVR case notable for coronary LAD protective MINNA. Status post TAVR, the patient was transferred to [facility] for pressor and inotropic support. Pressors [...] Brody Kaplan APRN Structural Heart Team Pager [phone] Team Office Please see addendum by Dr. [...] exposure. Nephrology consultationtoday. Antelmo Sharma MD Pager [phone] * Antelmo Cardenas RN - 05/14/2023 5:18 AM EDT Pt AOx4, complaining of mild/moderate generalized pain (states her Meloxicam is effective at home) currently refusing prn oxycodone. NAEON, hemodynamically stable on Milrinone, Maps >65, ST in hux864's down to NSR with frequent multifocal PVC's. [...] were not included. [facility] [place] [address] STRUCTURAL HEART DISEASE PROGRESS NOTE PRIMARY CARE [...] stenosis. She is now status post TAVR Fmies-mw-Qbwax with a 23 mm Lai 3 THV 05/12/[address] Sharma. Preliminary findings: Successful right transfemoral TAVR Gkfpl-hh-Ntcju with a 23 mm Lai 3 THV. [...] Interval Events: - Transferred to [facility] post- TAVR for pressor/inotropic support (Levo, [...] stenosis. She is now status post TAVR Jsrdd-lh-Ftmvx with a 23 mm Lai 3 THV 05/12/[address] Sharma. Janet TAVR case notable for coronary LAD protective MINNA. Status post TAVR, the patient was transferred to [facility] for pressor and inotropic support. Pressors [...] Brody Kaplan APRN Structural Heart Team Pager [phone] Team Office Please see addendum by Dr. [...] DAPT moving forward. Antelmo Sharma MD Pager [phone] * KaBonita stewart PA - 05/13/2023 8:30 AM EDT Cardiac Surgery Progress Note Purnima Thacker is a 67 y.o. 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 PMH of s/p tissue AVR (2017), mixed connective tissue disease HTN, HLD, NICOLAS, diverticulosis, rosacea, essential tremor, and depression. 24h Events: From photographic laboratory technician for above procedure Extubated at [...] soft b/l, no evidence of hematoma. Tubes/Lines/Drains: Vienna, RIJ, A-line, Art, PIV Assessment/Plan: 67 y.o. [...] 0600 and on the weekends please page [phone]. * Onelia Schwartz MD - 05/12/2023 1:44 [...] FiO2 weaned to 40%. 1105: ABG 7.34/42/73/22 5579-0892: SBT performed and passed on these settings [...] PCP: Magdalena Acosta MD PCP phone number: [phone] Date of Admission: 05/08/2023 ( Hospital Day [...] 0705/12/2331705/12/2310505/11/23193905/11/231446 PHART -- 7.34* 7.34* -- -- GQF6ONC -- 30* 30* -- -- PO2ART -- 72* 81* -- -- UPU8RIQ -- 16.0* 15.7* -- -- LACTATEVEN 2.4* 2.7* 2.7* 4.8* 2.9* VBG (Venous Blood Gas) Recent Labs 05/12/23 0700 05/12/2331705/12/2310505/11/23193905/11/231446 LACTATEVEN 2.4* 2.7* 2.7* 4.8* 2.9* Mixed Venous Sat Recent Labs 05/12/23 0508 05/12/23 0321 05/12/23 0114 05/12/23 0030 [id number] 30.7 32.7 37.3 25.1 Objective: Vitals Last [...] questions please contact the health pet care assistant that requested your imaging first. Electronically signed by: ALIX RUVALCABA MD, [facility] ([phone]), at 05/10/2023 1:[address] Cardiac for [...] questions please contact the health pet care assistant that requested your imaging first. Electronically signed by: Cullen Narayanan MD, [facility] ([phone]), at 05/11/2023 4:[address] Angiogram Abdomen [...] questions please contact the health pet care assistant that requested your imaging first. Electronically signed by: Eileen Gomes MD, [facility] ([phone]), at 05/11/2023 2:42 PM XR Chest One [...] questions please contact the health pet care assistant that requested your imaging first. Electronically signed by: Will Rowe MD, [facility] ([phone]), at 05/11/2023 11:57 PM XR Chest One [...] questions please contact the health pet care assistant that requested your imaging first. Electronically signed by: Will Rowe MD, [facility] ([phone]), at 05/12/2023 3:16 AM Assessment & Plan: [...] and inotrope. She is planned for a nwmgs-an-dincj TAVR this morning, which should hopefully improve [...] MD, FACP, FACC Section of Cardiovascular Medicine [facility] Maintenance Mechanic Supervisorforklift operator [facility] of Medicine at [facility] [...] 05/11/2023 4:11 PM EDT Reported off to RED MUD THICKENER OPERATOR and pt transferred over in the bed for higher level of care. * Antelmo Sharma MD - 05/11/2023 9:45 AM EDT Images from the original note were not included. [place] [facility] [place] [id number] STRUCTURAL HEART DISEASE CONSULTATION NOTE PRIMARY CARE [...] who had been referred for possible TAVR audat-pc-kfqnc evaluation. Her primary symptoms are of dyspnea [...] [facility]. 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 She states that, [...] hour(s)) Lactate, whole blood, send to lab ([facility]) Result Value Ref Range Lactate WB 3.1 (H) 0.5 - 2.2 mmol/L Heparin (unfractionated) Level Result Value Ref Range Heparin UFH Level 0.46 IU/mL Lactate, whole blood, send to lab ([facility]) Result Value Ref Range Lactate WB [...] leads Confirmed by MD Harshil, Enrique Bell ([id number]) on 05/10/2023 8:11:46 AM Cardiac Cath 11/09/2022 [...] HFrEF, she was transferred to [facility] this afternoon for further management. TAVR CT imaging support for adequate ileofemoral access. Given her acute deterioration today, will planfor RTF TAVR on 05/12/2023. Brody Kaplan APRN Structural Heart Disease Pager [phone] Please see addendum by Dr. Sharma for [...] signed and dated. Antelmo Sharma MD Pager [phone] * Harini Lance MD - 05/11/2023 6:06 AM EDT Images from the original note were not included. Cardiology Progress Note Patient info: Name: Purnima Thacker : 1955 PCP: Magdalena Acosta MD PCP phone number: [phone] Date of Admission: 05/08/2023 ( Hospital Day 3 days ) Attending:Juan Luis Gonzalez MD ID: uPrnima Thacker is a 67 y.o. female with [...] questions please contact the health pet care assistant that requested your imaging first. Electronically signed by: ALIX RUVALCABA MD, [facility] ([phone]), at 05/10/2023 1:25 PM TTE: 05/08 -Left [...] PCP: Magdalena Acosta MD PCP phone number: [phone] Date of Admission: 05/08/2023 ( Hospital Day [...] PCP: Magdalena Acosta MD PCP phone number: [phone] Date of Admission: 05/08/2023 ( Hospital Day [...] Gas) No results found for: PHART, PO2ART, PPM0KCJ, EDN8GNA Microbiology: Microbiology Results (Last 30 days) No [...] PPx: Diet: Daily Healthy Menu Choices/Cardiac diet ([facility]-Diet) Lines: Peripheral IV Line - Single Lumen [...] Surgical History: Procedure Laterality Date PRG CATH PLMO LEFT HEART CATH & ARTS W/INJ & [...] Surgical History: Procedure Laterality Date PRG CATH [facility] LEFT HEART CATH & ARTS [...] days, which prompted her to present to [employer]. She also endorses some intermittent retrosternal chest pain with exertion.She endorses some dizziness with exertion, but has not gotten faint or passed out. At [facility] she was noted to be afebrile, blood pressure 105/64, HR 120s, satting 95% on 2L NC. Labs from [facility] are below, of note she had elevated [...] 89/59, which prompted the transfer to us. [facility] labs: CBC - Hgb 10.5 CMP - Cr 1.1 BNP 13146 HsTrop 1358 Lactate 1.6 D-dimer 1183 Interval [...] Klaudia Reid MD Internal Medicine PGY-1 Pager [phone], M1-S1 Service Associated attestation - Juan Luis [...] PCP: Magdalena Acosta MD PCP phone number: [phone] Date of Admission: 05/08/2023 ( Hospital Day 0 days ) Attending:Enrique Chua MD ID: Purnima Thacker is a 67 y.o. female w/ PMH of s/p bioprosthetic AVR in 2016 with recent concern for severe restenosis, HTN, HLD, mixed connective tissue disease, who presents in transfer from [facility] with worsening BONILLA and weight gain concerning [...] four days, which promptedher to present to [facility]. She also endorses some intermittent retrosternal chest pain with exertion. She endorses some dizziness with exertion, but has not gotten faint or passed out. At [facility] she was noted to be afebrile, blood pressure 105/64, HR 120s, satting 95% on 2L NC. Labs from [facility] are below, of note she had elevated [...] 89/59, which prompted the transfer to us. [facility] labs: CBC - Hgb 10.5 CMP - Cr 1.1 BNP 76688 HsTrop 1358 Lactate 1.6 D-dimer 1183 Vasoactive [...] tissue disease, [facility] and weight gain concerning for [...] #Routine Diet: Daily Healthy Menu Choices/Cardiac diet ([facility]-Diet) DVT Prophylaxis: heparin gtt GI Prophylaxis: none [...] to the planned procedure. Hand Hygiene: The fibre composite technician did perform hand hygiene prior to [...] Successful arterial line placement. Crispin Timmons MD Vending Machine Host/Hostess Associated attestation - Onelia Schwartz MD - [...] (flow was non-pulsatile) and appearance of blood. [place]-Marily catheter was placed and locked at 55 [...] information for follow-up [facility], [place] [address] [place] [address] Cardiac Rehab, [address] [place] [address] [facility], [place] [address] [place] [address] Transportation: family or friend will provide *Brother [...] Type: *No Product type* / Secondary Insurance: [place] Prescription Coverage: Yes This plan was formulated with input from patient, family (please identify family/friend involved ifapplicable) and team. All are in agreement with plan. Aliza Martino MSN-Ed, RN ACM high school home economics teacher Office of Care Management Pager #[phone] * Plan of Care - Favian Mckeon [...] Chaudhary RN - 05/21/2023 4:46 PM EDTSummary: [facility] referral OFFICE OF CARE MANAGEMENT [...] planning needs. describing our affiliations within the [facility] and educate about their right to choose where referrals are sent. provide a list of Home Health Agencies / Durable Medical Equipment vendors which serve their preferred geographic area. They have requested referrals to: [facility] [address] [place] [address] Ortho Care Located @ [place], [place] Note routed to a Powdered Metal Supervisor who will communicate referrals to facilities and provide any required information. Transportation: family or friend will provide *Brother Raymond on Tuesday 05/22 at 1000 Barriers to discharge: Does not have home 22/02 assist available until tomorrow Tuesday 05/22 Plan going forward: Discharge home into the 22/02 home care of brother Raymond [facility] PT/OT services on Tuesday 05/22 [...] Attending: All Staff: Staff Role Juanita Almaguer Print Producer Laure Ricks PA Physician Travel Coordinator Magdalena Rodriguez mail distribution scheme examiner Nurse Consuelo Espinoza mail distribution scheme examiner Nurse Post-operative diagnosis/Indication: Right pleural effusion Name [...] Type: *No Product type* / Secondary Insurance: [facility] [place] Last Physical Therapy Recommendation: fdc facility, [...] to: discuss discharge planning needs. provide the [facility], Office of Care Management letter from the System Specialist pertaining to rehab referrals. provide a [...] for referral. They have requested referrals to: [facility] [address] [place] [address] [facility] ([facility]) [address] [place] [address] (Accepts pts only after exhausting all other local SNF options) [facility] ([facility]) ([facility]) [address] [place] [address] PHONE: [phone] FAX: [phone] [facility] ([facility]) [facility]) [address] [place] [address] PHONE: [phone] FAX: [phone] Note routed to a Powdered Metal Supervisor who will communicate referrals to facilities [...] Crenshaw RN - 05/17/2023 10:25 AM EDT [facility] CARDIAC REHABILITATION Purnima Thacker was seen today [...] from the original note were not included. [facility] NEPHROLOGY/HYPERTENSION CONSULT NOTE PATIENT: [...] in her course. She ultimately underwent a loytt-sv-ywgyg procedure on and tolerated it well (see operative details). [facility] on some pressors support.. [...] 1423 05/12/23 1105 PHART 7.39 7.37 7.34* GDP1MYZ 33* 36 42 PO2ART 101 102 73* UIK9PGS 19.5* 20.4 22.1 LACTATEVEN 1.5 1.8 2.8* LBT3PIH 40 40 40 PFRATIOART2 252 255 182 VBG (Venous Blood Gas) Recent Labs 05/12/23 1557 05/12/23 1423 05/12/23 1105 LACTATEVEN 1.5 1.8 2.8* Mixed Venous Sat Recent Labs 05/12/23 1425 05/12/23 0508 05/12/23 0321 B4HZXL1 59.9 30.7 32.7 LFT's: Recent Labs 05/14/23 0110 05/13/23 0115 05/12/23 0600 BILITOT 0.4 0.5 0.9 BILIDIR -- 0.3 -- ALBUMIN 3.6 3.0* 3.5 ALKPHOS 86 85 100 ALT 437* 903* 1,174* AST 319* 792* 1,435* No results found for: UPROTCREAT No results found for: TPROTEINPEP, ALBELECT No results found for: MICROALBUR, QXXL14ZPT No results found for: HA1C Lab Results Component Value Date CALCIUM 8.5 05/14/2023 PHOS 4.7 (H) 05/08/2023 No results found for: 25OHVITD MICROBIOLOGY: ProcedureComponentValueUnitsDate/TimeUrine culture [[id number]]Collected: 05/11/231921Lab Status: Final resultSpecimen: Clean Catch UrineUpdated: [...] consulted for assessment if this patient needs METROLOGY MANAGER. Atthis time, we can likely hold off on METROLOGY MANAGER. Her volume status appears sufficient and her metabolic kanwal angements with mild acidosis is not too profound. Patient does not have significant uremic symptoms. We can hold off for today, but the patient is a high risk candidate for needing METROLOGY MANAGER in future daysespecially if her Cr curve trends the direction it is for the next several days. S/p Jspxw-pf-Zncxb TF TAVR: Management per cardiology. On milrinone gtt. PLAN: - Please obtain following diagnostics: renal US, urinalysis, urine prot/Cr ratio, urine albumin/Cr ratio, CK, uric acid, serum osmol, daily VBGs - No acute indications for METROLOGY MANAGER/dialysis. We will keep close eye on Cr trend, volume status, and metabolics to ensure patient still does not need METROLOGY MANAGER as she ensues intrinsic renal recovery [...] M.H.Katherine., M.A. PGY-V Nephrology-Hypertension Fellow Page # [phone] [facility] [address], Hand Hose Cutter [address] [place] [address] * Care Management - Mario Alberto Olmos [...] for a TAVR at 730. Returned to [facility] at 0945. Was intubated in the photographic laboratory technician due to agitation. Maintained bedrest [...] Operative Note Patient Name: Purnima Thacker : [id number] MR#: [id number] Case Date: 05/12/2023 Surgeon: Surgeon(s) and Role: [...] procedure Note: Patient Name: Purnima Thacker : [id number] MR#: [id number] Case Date: 05/12/2023 Operators Surgeon: Surgeon(s) and [...] main with 4.0 x 30 mm Resolute [facility] [employer] Eluting Stent Perclose x1 + Angio-seal 8 Fr x1, RFA Manual pressure, LFA Manual pressure, LFV Endotracheal intubation (performed by cardiac anesthesia) Preliminary findings: Successful right transfemoral TAVR Aqdsv-if-Zoxol with a 23 mm Lai 3 THV. [...] MD, M.Sc. Structural Heart Disease Fellow Pager :[phone] Antelmo Sharma MD Pager [phone] * Op Note - Alirio Hudson MD - 05/12/2023 7:37 AM EDT Preop Diagnosis: Severe aortic stenosis, symptomatic. Postop Diagnosis: Same. Procedure: Transfemoral TAVR procedure with 23mm valve. Surgeon: Alirio Hudson M.D. Temple Meat Cutter: Danny CULP Procedure: The patient was taken to the photographic laboratory technician. The patient had monitored anesthesia [...] Brody Kaplan APRN Structural Heart Disease Pager [phone] * Consult Note - Vinod Juárez PA - 05/11/2023 2:16 PM EDT Cardiac Surgery Consultation Note Purnima Thacker is seen at the request of Dr. Hollins for the evaluation of prosthetic . HPI: Purnima Thacker is a 67 y.o. female with known prosthetic aortic stenosis s/p AVR in [address] 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 [facility] [place] [address] STRUCTURAL HEART DISEASE CONSULTATION NOTE PRIMARY CARE [...] who had been referred for possible TAVR bapih-ad-qxhte evaluation. Her primary symptoms are of dyspnea [...] [facility]. 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 She states that, [...] hour(s)) Lactate, whole blood, send to lab ([facility]) Result Value Ref Range Lactate WB [...] leads Confirmed by MD Harshil, Enrique Bell ([id number]) on 05/10/2023 8:11:46 AM Assessment and Plan: [...] alert Dr. Hudson of her inpatient status, [place] primary cardiac surgeon. Based on recent clinic [...] Antelmo Sharma MD Structural Heart Disease Pager [phone] * Plan of Care - Sarahi Nice RN - 05/10/2023 3:55 AM EDTSumavis: RN Note and Care Plan Sarahi Nice RN assumed care of pt at time of their arrival to room 362 from [facility]. Pt voices shortness of breath at [...] VTE (Venous Thromboembolism) Risk Flowsheets (Taken 05/09/2023 6236) VTE Prevention/Management: anticoagulant therapy Intervention: Prevent Infection [...] listening utilized Taken 05/08/20231999 by Alivia Kauffman, vice president financial/Support System Care: self-care encouraged support provided Problem: [...] Transfer from another hospital Location: admitted from [facility] Reason for Hospitalization: Critical aortic stenosis, causing [...] receiving care in [place] must abide by [place] law. The hierarchy [...] DME: none Home Address confirmed as: [address] [facility] [place] [address] Social & Family Supports: All names listed below confirmed with patient as current and correct Extended Emergency Contact Information Primary Emergency Contact: Martha Thacker Relation: Friend Secondary Emergency Contact: Goirgio Thacker Mobile Relation: Sibling Current Care Provided [...] Type: *No Product type* / Secondary Insurance: [facility] [place] ONLY if patient has Medicare A&B - Does this patient have secondary insurance?: Yes ; Prescription Coverage: Yes Preferred Pharmacy: updated to [facility] Status: Patient is a : No Primary Care Provider confirmed: Magdalena Acosta MD [phone] Patient/Caregiver Goals of Treatment: Potential Needs for [...] transition of care planning. Alie Bradshaw RN, Pager-[phone] * Plan of Care - Emily Lucero RN - 05/08/2023 2:54 PM EDT OUTCOME EVALUATION NOTE: OUTCOME SUMMARY: Pt arrived from [facility]. A&O, no c/o pain or SOB. Heparin [...] EST Office Visit Hematology [place] [address] Markel Borjas MD [facility] [place] [address] 11/02/2024 12:00 PM EDT Appointment [place] [address] 11/02/2024 1:00 PM EDT Office [place] [address] Magdalena Peralta MD [facility] [place] [address] 03/01/2025 4:15 PM EDT Office Visit Dermatology at [place] [address] [place] [address] Marek Bonilla MD [address] [place] [address] Scheduled Referrals Name Type Priority Associated Diagnoses [...] Heart Cath W/Inj L Ventriculography, Img S&I (37992) 05/12/2023 7:37 AM EDT Aortic valve stenosis, [...] DOPP (07/08/2023 12:15 PM EST) EF 20 HEARTRecovr SYSTEM Anatomical Region Laterality Modality Cardiac Other 07/08/2023 10:3 1 AM EST Narrative 07/08/2023 12:26 PM EST [address] [place] [address] ? Echocardiogram Report Name: PURNIMA THACKER ?Study Date: 07/08/2023 10:31 AMBP: 118/60 mmHg ? Patient Location: 4A : 1955 ? Height: 155 cm ? Account: [id number] Age: 67 yrs ? Weight: 74 kg Gender: Female ?BSA: 1.7 m2 Ordering Physician: ALIRIO HUDSON Referring Physician: VINOD JUÁREZ Performed By: Felicia Norris RDCS Reason For Study: S/P TAVR Exam Location: [facility] [place] [facility]. Interpretation Summary Left ventricular systolic function [...] no significant change (post-procedure). Procedure Limited - 81087. Doppler - 69092. Color Doppler - 61607. Satisfactory quality. This study is limited because [...] Note Lee Kincaid MD - 07/08/2023 [address] [place] [address] Echocardiogram Report Name: PURNIMA THACKER Study Date: 0:31 AMBP: 118/60 mmHg Patient Location: : 1955 Height: 155 cm Account: [id number] Age: 67 yrs Weight: 74 kg Gender: Female BSA: 1.7 m2 Ordering Physician: ALIRIO HUDSON Referring Physician: VINOD JUÁREZ Performed By: Felicia Norris RDCS Reason For Study: S/P TAVR Exam Location: [facility] [place] [facility]. Interpretation Summary Left ventricular systolic function [...] is nosignificant change (post-procedure). Procedure Limited - 07721. Doppler - 15415. Color Doppler - 76986. Satisfactoryquality. This study is limited because of [...] EST) Glucose 93 65 - 199 mg/dL [facility] Comment:Diabetes: >=200 mg/d L plus symptoms Blood Urea Nitrogen 19(H) 8 - 18 mg/dL [facility] Creatinine 0.81 0.70 - 1.20 mg/dL [facility] Sodium 142 135 - 145 mmol/L [facility] Potassium 3.8 3.5 - 5.0 mmol/L [facility] Comment: Please note: ??Patients with WBC >100,000 may have falsely elevated Potassium levels. ??For accurate Potassium quantification in these patients send serum separator tube (gold top) for subsequent determinations. ??Contact the Clinical Chemistry Laboratory if there are any questions. Chloride 104 98 - 107 mmol/L [facility] Carbon Dioxide 26 22 - 31 mmol/L [facility] Anion Gap 12 5 - 15 mmol/L [facility] Calcium 10.2 8.5 - 10.5 mg/dL [facility] Protein, Total 7.4 6.1 - 8.0 g/dL [facility] Albumin 4.1 3.2 - 5.2 g/dL [facility] Aspartate Aminotransferase 24 0 - 30 unit/L [facility] Alanine Aminotransferase 12 0 - 30 unit/L [facility] Alkaline Phosphatase 93 35 - 105 unit/L [facility] Bilirubin, Total 0.3 0.2 - 1.3 mg/dL [facility] Est Glomerular Filtration Rate 80 >=60 mL/min/1. 73 m?? [facility] Comment: This patient's estimated GFR [...] Lab Alirio Hudson MD CHEMISTRY ORDERABLE S [facility] [place] [address] * (ABNORMAL) Basic Metabolic Panel (non-fasting) (05/22/2023 3:57 AM EDT) Glucose 88 65 - 199 mg/dL [facility] Comment:Diabetes: >=200 mg/d L plus symptoms Blood Urea Nitrogen 21(H) 8 - 18 mg/dL [facility] Creatinine 0.69(L) 0.70 - 1.20 mg/dL [facility] Sodium 136 135 - 145 mmol/L [facility] Potassium 3.6 3.5 - 5.0 mmol/L [facility] Comment: Please note: ??Patients with WBC >100,000 may have falsely elevated Potassium levels. ??For accurate Potassium quantification in these patients send serum separator tube (gold top) for subsequent determinations. ??Contact the Clinical Chemistry Laboratory if there are any questions. Chloride 102 98 - 107 mmol/L [facility] Carbon Dioxide 23 22 - 31 mmol/L [facility] Anion Gap 11 5 - 15 mmol/L [facility] Calcium 8.6 8.5 - 10.5 mg/dL [facility] Est Glomerular Filtration Rate 95 >=60 mL/min/1. 73 m?? [facility] Comment: This patient's estimated GFR [...] Agency Comment Spec In Lab Mara Serrano LEARNING PROGRAM MANAGER CHEMISTRY ORDERABL ES [facility] [place] [address] * (ABNORMAL) Basic Metabolic Panel (non-fasting) (05/21/2023 5:06 AM EDT) Glucose 87 65 - 199 mg/dL [facility] Comment:Diabetes: >=200 mg/d L plus symptoms Blood Urea Nitrogen 25(H) 8 - 18 mg/dL [facility] Creatinine 0.84 0.70 - 1.20 mg/dL [facility] Sodium 136 135 - 145 mmol/L [facility] Potassium 3.6 3.5 - 5.0 mmol/L [facility] Comment: Please note: ??Patients with WBC >100,000 may have falsely elevated Potassium levels. ??For accurate Potassium quantification in these patients send serum separator tube (gold top) for subsequent determinations. ??Contact the Clinical Chemistry Laboratory if there are any questions. Chloride 102 98 - 107 mmol/L [facility] Carbon Dioxide 26 22 - 31 mmol/L [facility] Anion Gap 8 5 - 15 mmol/L [facility] Calcium 8.9 8.5 - 10.5 mg/dL [facility] Est Glomerular Filtration Rate 76 >=60 mL/min/1. 73 m?? [facility] Comment: This patient's estimated GFR [...] Narrative Resulting Agency Comment Spec In Lab [facility] LEARNING PROGRAM MANAGER CHEMISTRY ORDERABL ES Performing Organization Address City/[facility]/ZIP Co de Phone Number [facility] [place] [address] * Lavender Tube HOLD (05/20/2023 2:52 AM EDT) Lavender Hold Sample in lab. [facility] Blood Venous Draw / Unknown 05/20/2023 2:52 AM EDT 05/20/2023 3:04 AM EDT [facility] LEARNING PROGRAM MANAGER HEMATOLOGY ORDERAB LES Performing Organization Address City/[facility]/ZIP [place] [address] * (ABNORMAL) Basic Metabolic Panel (non-fasting) (05/20/2023 2:52 AM EDT) Glucose 152 65 - 199 mg/dL [facility] Comment:Diabetes: >=200 mg/d L plus symptoms Blood Urea Nitrogen 33(H) 8 - 18 mg/dL [facility] Creatinine 0.82 0.70 - 1.20 mg/dL [facility] Sodium 137 135 - 145 mmol/L [facility] Potassium 3.7 3.5 - 5.0 mmol/L [facility] Comment: Please note: ??Patients with WBC >100,000 may have falsely elevated Potassium levels. ??For accurate Potassium quantification in these patients send serum separator tube (gold top) for subsequent determinations. ??Contact the Clinical Chemistry Laboratory if there are any questions. Chloride 99 98 - 107 mmol/L [facility] Carbon Dioxide 22 22 - 31 mmol/L [facility] Anion Gap 16(H) 5 - 15 mmol/L [facility] Calcium 9.0 8.5 - 10.5 mg/dL [facility] Est Glomerular Filtration Rate 78 >=60 mL/min/1. 73 m?? [facility] Comment: This patient's estimated GFR [...] Lab Mara Serrano ANURAG CHEMISTRY ORDERABL ES [facility] [place] [address] * (ABNORMAL) Potassium (05/20/2023 2:52 AM EDT) Potassium 3.4(L) 3.5 - 5.0 mmol/L [facility] [...] Agency Comment Spec In Lab Mara Serrano LEARNING PROGRAM MANAGER CHEMISTRY ORDERABL ES [facility] [place] [address] * XR Chest PA & Lateral (Generic) [...] questions please contact the health pet care assistant that requested your imaging first. [...] silhouette. Unchanged cholecystectomy clips. Procedure Note Chyna Johnosn MD - 05/19/2023 EXAMINATION: XR CHEST PA [...] have questions please contactthe health pet care assistant that requested your imaging first. Electronically signed by: Chyna Johnson MD, [facility]([phone]), at 05/19/2023 2:19 PM Alirio Hudson MD IMG DX ORDERABLES * (ABNORMAL) Basic Metabolic Panel (non-fasting) (05/19/2023 5:49 AM EDT) Glucose 93 65 - 199 mg/dL [facility] Comment:Diabetes: >=200 mg/d L plus symptoms Blood Urea Nitrogen 45(H) 8 - 18 mg/dL [facility] Creatinine 1.02 0.70 - 1.20 mg/dL [facility] Sodium 138 135 - 145 mmol/L [facility] Potassium 3.9 3.5 - 5.0 mmol/L [facility] Comment: Please note: ??Patients with WBC >100,000 may have falsely elevated Potassium levels. ??For accurate Potassium quantification in these patients send serum separator tube (gold top) for subsequent determinations. ??Contact the Clinical Chemistry Laboratory if there are any questions. Chloride 102 98 - 107 mmol/L [facility] Carbon Dioxide 26 22 - 31 mmol/L [facility] Anion Gap 10 5 - 15 mmol/L [facility] Calcium 9.7 8.5 - 10.5 mg/dL [facility] Est Glomerular Filtration Rate 60 >=60 mL/min/1. 73 m?? [facility] Comment: This patient's estimated GFR [...] OSBORN CHEMISTRY ORDERABL ES Performing Organization Address City/State/[facility] Co de Phone Number [facility] [place] [address] * IR Chest Tube Placement Right (05/18/2023 [...] Kristopher Salgado MD 05/18/2023 Alirio Hudson MD [facility] IR ORDERABLES * (ABNORMAL) Basic Metabolic Panel (non-fasting) (05/18/2023 2:54 AM EDT) Glucose 95 65 - 199 mg/dL [facility] Comment:Diabetes: >=200 mg/d L plus symptoms Blood Urea Nitrogen 71(H) 8 - 18 mg/dL [facility] Comment:result rechecked-[facility] Creatinine 1.64(H) 0.70 - 1.20 mg/dL [facility] Comment:result rechecked-[facility] Sodium 137 135 - 145 mmol/L [facility] Potassium 3.7 3.5 - 5.0 mmol/L [facility] Comment: Please note: ??Patients with WBC >100,000 may have falsely elevated Potassium levels. ??For accurate Potassium quantification in these patients send serum separator tube (gold top) for subsequent determinations. ??Contact the Clinical Chemistry Laboratory if there are any questions. Chloride 100 98 - 107 mmol/L [facility] Carbon Dioxide 24 22 - 31 mmol/L [facility] Anion Gap 13 5 - 15 mmol/L [facility] Calcium 9.7 8.5 - 10.5 mg/dL [facility] Est Glomerular Filtration Rate 34(L) >=60 mL/min/1. 73 m?? [facility] Comment: This patient's estimated GFR [...] Resulting Agency Comment Spec [facility] [place] [address] * XR Chest PA & Lateral (Generic) [...] questions please contact the health pet care assistant that requested your imaging first. ? Electronically signed by: Ghassan Reyes MD, [facility] ??([phone]), at 05/17/2023 11:46 AM Narrative 05/17/2023 11:46 [...] have questions please contactthe health pet care assistant that requested your imaging first. Electronically signed by: Ghassan Reyes MD, [facility]([phone]), at 05/17/2023 11:46 AM Alirio Hudson MD IMG DX ORDERABLES * (ABNORMAL) Comprehensive metabolic panel (non-fasting) (05/17/2023 4:35 AM EDT) Glucose 89 65 - 199 mg/dL [facility] Comment:Diabetes: >=200 mg/d L plus symptoms Blood Urea Nitrogen 97(H) 8 - 18 mg/dL [facility] Creatinine 2.97(H) 0.70 - 1.20 mg/dL [facility] Comment:result rechecked-JSJ Sodium 135 135 - 145 mmol/L [facility] Potassium 4.1 3.5 - 5.0 mmol/L [facility] Comment: Please note: ??Patients with WBC >100,000 may have falsely elevated Potassium levels. ??For accurate Potassium quantification in these patients send serum separator tube (gold top) for subsequent determinations. ??Contact the Clinical Chemistry Laboratory if there are any questions. Chloride 97(L) 98 - 107 mmol/L [facility] Carbon Dioxide 22 22 - 31 mmol/L [facility] Anion Gap 16(H) 5 - 15 mmol/L [facility] Calcium 9.6 8.5 - 10.5 mg/dL [facility] Protein, Total 6.5 6.1 - 8.0 g/dL [facility] Albumin 3.7 3.2 - 5.2 g/dL [facility] Aspartate Aminotransferase 58(H) 0 - 30 unit/L [facility] Alanine Aminotransferase 66(H) 0 - 30 unit/L [facility] Alkaline Phosphatase 86 35 - 105 unit/L [facility] Bilirubin, Total 0.6 0.2 - 1.3 mg/dL [facility] Est Glomerular Filtration Rate 17(L) >=60 mL/min/1. 73 m?? [facility] Comment: This patient's estimated GFR [...] CHEMISTRY ORDERABLE S Performing Organization Address [facility] Co de Phone Number [facility] [place] [address] * Potassium (05/16/2023 11:15 PM EDT) Potassium 3.7 3.5 - 5.0 mmol/L [facility] Comment: Please note: ??Patients with [...] MD CHEMISTRY ORDERABLE S Performing Organization Address City/[facility] Co de Phone Number [facility] [place] [address] * Magnesium (05/16/2023 5:22 PM EDT) Magnesium 0.96 0.69 - 1.07 mmol/L [facility] Blood 05/16/2023 5:22 PM EDT 05/16/2023 5:27 PM EDT Narrative Resulting Agency Comment Spec In Lab Alirio Hudson MD CHEMISTRY ORDERABLE S Performing Organization Address City/[facility]/ZIP Co de Phone Number [facility] [place] [address] * (ABNORMAL) Basic Metabolic Panel (non-fasting) (05/16/2023 5:22 PM EDT) Glucose 106 65 - 199 mg/dL [facility] Comment:Diabetes: >=200 mg/d L plus symptoms Blood Urea Nitrogen 103(H) 8 - 18 mg/dL [facility] Creatinine 3.91(H) 0.70 - 1.20 mg/dL [facility] Comment:result rechecked-imm Sodium 132(L) 135 - 145 mmol/L [facility] Potassium 3.6 3.5 - 5.0 mmol/L [facility] Comment: Please note: ??Patients with WBC >100,000 may have falsely elevated Potassium levels. ??For accurate Potassium quantification in these patients send serum separator tube (gold top) for subsequent determinations. ??Contact the Clinical Chemistry Laboratory if there are any questions. Chloride 92(L) 98 - 107 mmol/L [facility] Carbon Dioxide 22 22 - 31 mmol/L [facility] Anion Gap 18(H) 5 - 15 mmol/L [facility] Calcium 9.7 8.5 - 10.5 mg/dL [facility] Est Glomerular Filtration Rate 12(L) >=60 mL/min/1. 73 m?? [facility] Comment: This patient's estimated GFR [...] Lab Alirio Hudson MD CHEMISTRY ORDERABLE S [facility] [place] [address] * (ABNORMAL) Potassium (05/16/2023 11:43 AM EDT) Potassium 3.3(L) 3.5 - 5.0 mmol/L [facility] Comment: Please note: ??Patients with [...] MD CHEMISTRY ORDERABLE S Performing Organization Address City/[facility]/ZIP Co de Phone Number [facility] [place] [address] * (ABNORMAL) Ferritin (05/16/2023 4:41 AM EDT) Ferritin 1,813(H) 30 - 400 ng/mL [facility] Comment: Pediatric reference ranges not verified at [facility], interpret with caution. Reference ranges for females greater than 50 years of age approach values for men, i.e., 30-400 ng/mL. Blood 05/16/2023 4:41 AM EDT 05/16/2023 4:54 AM EDT Narrative Resulting Agency Comment Spec In Lab Kristopher Ayoub MD CHEMISTRY ORDERABLES [facility] [place] [address] * (ABNORMAL) PTH (05/16/2023 4:41 AM EDT) Parathyroid Hormone 120(H) 15 - 65 pg/mL [facility] Blood 05/16/2023 4:41 AM EDT 05/16/2023 4:54 AM EDT Narrative Resulting Agency Comment Spec In Lab Kristopher Ayoub MD CHEMISTRY ORDERABLES [facility] [place] [address] * Vitamin D, 25-Hydroxy (05/16/2023 4:41 AM EDT) Vitamin D Total 25 OH 33 21 - 100 ng/mL [facility] Vit D Interp Sufficient [facility] Blood 05/16/2023 4:41 AM EDT 05/16/2023 4:54 AM EDT Narrative Resulting Agency Comment Spec In Lab Kristopher Ayoub MD CHEMISTRY ORDERABLES Performing Organization Address City/[facility]/ZIP Co de Phone Number [facility] [place] [address] * (ABNORMAL) Blood Gas Venous ([facility]) (05/16/2023 4:22 AM EDT) pH, Venous 7.41 7.32 - 7.42 [facility] PCO2, Venous 32(L) 41 - 51 mmHg [facility] PO2, Venous 73(H) 25 - 40 mmHg [facility] Bicarbonate, Venous 19.6 mmol/L [facility] Base Excess, Venous -5.1 mmol/L [facility] Hgb Blood Gas 9.7(L) 11.7 - 15.5 g/dL [facility] Oxyhemoglobin, Venous 92.8 % [facility] Carboxyhemoglob in, Venous 0.1 % [facility] Comment: Nonsmokers: 0.5-1.5% COHB Smokers: Variable, but usually less than 10% Toxic: 20-30% COHB Lethal: Greater than 60% COHB Methemoglobin, Venous 0.3 <=1.5 % [facility] Na Whole Blood 130(L) 135 - 145 mmol/L [facility] K Whole Blood 3.7 3.5 - 5.0 mmol/L [facility] Comment: Please note: Patients with WBC >100,000 may have falsely elevated Potassium levels. Contact the Clinical Chemistry Laboratory if there are any questions. ICa Whole Blood 1.15 1.15 - 1.33 mmol/L [facility] Comment: Note: ??Total bilirubin higher than 20 mg/dL may lead to falsely low ionized calcium. CL Whole Blood 95(L) 98 - 107 mmol/L [facility] Gluc Whole Bld 82 65 - 199 mg/dL [facility] Comment:Diabetes: >=200 mg/d L plus symptoms Lactate WB 1.1 0.5 - 2.2 mmol/L [facility] Blood Gas Source Venous [facility] Blood Venous Draw / Unknown 05/16/2023 4:22 AM EDT 05/16/2023 4:31 AM EDT Narrative Resulting Agency Comment Spec In Lab Bonita TOBAR CHEMISTRY ORDERABLES [facility] [place] [address] * (ABNORMAL) Differential, Automated (05/16/2023 4:20 AM EDT) Neutrophil % 84.1 % [facility] Neutrophil Absolute 6.22(H) 1.70 - 6.10 x10(3)/mc L [facility] Lymph % 5.8 % [facility] Lymphocytes Abs 0.4(L) 0.9 - 3.2 x10(3)/mc L [facility] Monocyte % 8.8 % [facility] Monocyte Abs 0.6 0.3 - 0.9 x10(3)/mc L [facility] Eos % 0.4 % [facility] Eosinophils Abs 0.0 0.0 - 0.4 x10(3)/mc L [facility] Basophil % 0.0 % [facility] Baso Absolute 0.0 0.0 - 0.1 x10(3)/mc L [facility] Immature Gran % 0.90 % [facility] Comment: Immature granulocytes(IG's)percentage and absolute count will include metamyelocytes, myelocytes, and promyelocytes. Blood smears from CBCs yielding IG's will be scanned manually for concordance. If this scan disagrees with the automated IG or if promyelocytes are noted, a manual differential will be performed. Immature Gran Absolute 0.07(H) 0.00 - 0.04 x10(3)/mc L [facility] Blood 05/16/2023 4:20 AM EDT 05/16/2023 4:29 AM EDT Narrative Resulting Agency Comment Spec In Lab James Agustin MD HEMATOLOGY ORDER JODIE [facility] [place] [address] * (ABNORMAL) Hemogram (05/16/2023 4:20 AM EDT) White Blood Cell 7.4 4.0 - 9.5 x10(3)/mc L [facility] Red Blood Cell 2.40(L) 4.00 - 5.21 x10(6)/mc L [facility] Hemoglobin 7.8(L) 11.7 - 15.5 g/dL [facility] Hematocrit 22.5(L) 35.7 - 45.8 % [facility] Mean Cell Volume 93.8 82.6 - 94.4 fL [facility] Mean Cell Hemoglobin 32.5(H) 27.1 - 32.0 pg [facility] Mean Cell Hemoglobin Concentration 34.7 31.7 - 35.0 g/dL [facility] Platelet 120(L) 145 - 357 x10(3)/mc L [facility] RDW Standard Deviation 42.9 37.0 - 46.0 fL [facility] RDW coefficient of variation 12.9 11.5 - 14.1 % [facility] Mean Platelet Volume 11.3 7.6 - 12.9 fL [facility] NRBC% auto 0.7 % [facility] NRBC Absolute 0.050(H) 0.000 - 0.000 x10(3)/mc L [facility] Blood 05/16/2023 4:20 AM EDT 05/16/2023 4:29 AM EDT Narrative Resulting Agency Comment Spec In Lab James Agustin MD HEMATOLOGY ORDER JODIE Performing Organization Address City/[facility]/ZIP Co de Phone Number [facility] [place] [address] * (ABNORMAL) Basic Metabolic Panel (non-fasting) (05/16/2023 4:20 AM EDT) Glucose 89 65 - 199 mg/dL [facility] Comment:Diabetes: >=200 mg/d L plus symptoms Blood Urea Nitrogen 108(H) 8 - 18 mg/dL [facility] Creatinine 4.74(H) 0.70 - 1.20 mg/dL [facility] Comment:result rechecked-OLIVA Sodium 132(L) 135 - 145 mmol/L [facility] Potassium 3.9 3.5 - 5.0 mmol/L [facility] Comment: Please note: ??Patients with WBC >100,000 may have falsely elevated Potassium levels. ??For accurate Potassium quantification in these patients send serum separator tube (gold top) for subsequent determinations. ??Contact the Clinical Chemistry Laboratory if there are any questions. Chloride 95(L) 98 - 107 mmol/L [facility] Carbon Dioxide 18(L) 22 - 31 mmol/L [facility] Anion Gap 19(H) 5 - 15 mmol/L [facility] Calcium 9.2 8.5 - 10.5 mg/dL [facility] Est Glomerular Filtration Rate 10(L) >=60 mL/min/1. 73 m?? [facility] Comment: This patient's estimated GFR [...] Lab Alirio Hudson MD CHEMISTRY ORDERABLE S [facility] [place] [address] * (ABNORMAL) Iron and TIBC (05/16/2023 4:20 AM EDT) Iron 31 30 - 150 mcg/dL [facility] TIBC 259 250 - 450 mcg/dL [facility] Iron Saturation 12(L) 20 - 50 % [facility] Blood 05/16/2023 4:20 AM EDT 05/16/2023 4:29 AM EDT Narrative Resulting Agency Comment Spec In Lab Kristopher Ayoub MD CHEMISTRY ORDERABLES [facility] [place] [address] * (ABNORMAL) Basic Metabolic Panel (non-fasting) (05/15/2023 12:50 AM EDT) Glucose 101 65 - 199 mg/dL [facility] Comment:Diabetes: >=200 mg/d L plus symptoms Blood Urea Nitrogen 109(H) 8 - 18 mg/dL [facility] Creatinine 5.62(H) 0.70 - 1.20 mg/dL [facility] Comment:result rechecked-KS Sodium 131(L) 135 - 145 mmol/L [facility] Comment:result rechecked-KS Potassium 3.7 3.5 - 5.0 mmol/L [facility] Comment: result rechecked-KS Please note: ??Patients with WBC >100,000 may have falsely elevated Potassium levels. ??For accurate Potassium quantification in these patients send serum separator tube (gold top) for subsequent determinations. ??Contact the Clinical Chemistry Laboratory if there are any questions. Chloride 92(L) 98 - 107 mmol/L [facility] Comment:result rechecked-KS Carbon Dioxide 18(L) 22 - 31 mmol/L [facility] Comment:result rechecked-KS Anion Gap 21(H) 5 - 15 mmol/L [facility] Calcium 8.9 8.5 - 10.5 mg/dL [facility] Est Glomerular Filtration Rate 8(L) >=60 mL/min/1. 73 m?? [facility] Comment: This patient's estimated GFR [...] Lab Alirio Hudson MD CHEMISTRY ORDERABLE S [facility] [place] [address] * (ABNORMAL) Hemogram (05/15/2023 12:50 AM EDT) White Blood Cell 9.1 4.0 - 9.5 x10(3)/mc L [facility] Red Blood Cell 2.19(L) 4.00 - 5.21 x10(6)/mc L [facility] Hemoglobin 7.2(L) 11.7 - 15.5 g/dL [facility] Hematocrit 20.6(L) 35.7 - 45.8 % [facility] Mean Cell Volume 94.1 82.6 - 94.4 fL [facility] Mean Cell Hemoglobin 32.9(H) 27.1 - 32.0 pg [facility] Mean Cell Hemoglobin Concentration 35.0 31.7 - 35.0 g/dL [facility] Platelet 109(L) 145 - 357 x10(3)/mc L [facility] RDW Standard Deviation 43.6 37.0 - 46.0 fL [facility] RDW coefficient of variation 12.9 11.5 - 14.1 % [facility] Mean Platelet Volume 10.4 7.6 - 12.9 fL [facility] NRBC% auto 2.1 % [facility] NRBC Absolute 0.190(H) 0.000 - 0.000 x10(3)/mc L [facility] Blood 05/15/2023 12:5 0 AM EDT 05/15/2023 12:52 AM EDT Narrative Resulting Agency Comment Spec In Lab Alirio Hudson MD HEMATOLOGY ORDERABL ES [facility] [address] [place] [address] * (ABNORMAL) BLOOD GAS 2 VENOUS (05/15/2023 12:49 AM EDT) pH, Venous 7.33 7.32 - 7.42 [facility] PCO2, Venous 37(L) 41 - 51 mmHg [facility] PO2, Venous 34 25 - 40 mmHg [facility] Bicarbonate, Venous 19.1 mmol/L [facility] Base Excess, Venous -6.8 mmol/L [facility] Hgb Blood Gas 10.8(L) 11.7 - 15.5 g/dL [facility] Oxyhemoglobin, Venous 58.1 % [facility] Carboxyhemoglob in, Venous 0.3 % [facility] Comment: Nonsmokers: 0.5-1.5% COHB Smokers: Variable, but usually less than 10% Toxic: 20-30% COHB Lethal: Greater than 60% COHB Methemoglobin, Venous 0.6 <=1.5 % [facility] Na Whole Blood 136 135 - 145 mmol/L [facility] K Whole Blood 3.7 3.5 - 5.0 mmol/L [facility] Comment: Please note: Patients with WBC >100,000 may have falsely elevated Potassium levels. Contact the Clinical Chemistry Laboratory if there are any questions. ICa Whole Blood 1.12(L) 1.15 - 1.33 mmol/L [facility] Comment: Note: ??Total bilirubin higher than 20 mg/dL may lead to falsely low ionized calcium. CL Whole Blood 95(L) 98 - 107 mmol/L [facility] Gluc Whole Bld 101 65 - 199 mg/dL [facility] Comment:Diabetes: >=200 mg/d L plus symptoms Lactate WB 1.3 0.5 - 2.2 mmol/L [facility] Flow, Mike 1.0 LPM [facility] Blood Gas Source Venous [facility] Blood 05/15/2023 12:4 9 AM EDT 05/15/2023 12:49 AM EDT Alirio Hudson MD POINT OF CARE TEST ORDERABLES [facility] [place] [address] * US Retroperitoneal Complete (05/14/2023 3:53 PM [...] PM Electronically signed by: Hayden Robledo MD, [facility] ([phone]), at 05/14/2023 4:32 PM Thank you for letting us participate in the care of this patient. If you are a health care provider and have any questions regarding this report, please contact the number above. For patients who have questions, please contact the health pet care assistant that requested your imaging first. ? Hayden Robledo, Staff Physician Electronically Signed Final Report ?? 05/14/2023 04:39 pm Narrative 05/14/2023 4:39 PM EDT Renal ? (Signed Final 05/14/2023 04:39 pm) PATIENT INFO: ID #: ? [id number] ?: ??[birth year] (67 yrs)(F) Name: ? PURNIMA THACKER ?Visit Date: 05/14/2023 03:44 pm PERFORMED BY: Attending: ?Meena CULP, Hayden Stafford Resident: ? Nell CULP, Anand August Performed By: ? Consuelo Tello RDMS Referred By: ?ALIRIO HUDSON Location: ? [place] SERVICE(S) PROVIDED: URETRO - Retroperitoneal Complete - [id number] ? [id number] INDICATIONS: [facility] COMPARISON: CT: Abdomen/Pelvis 05/11/23 RIGHT [...] 05/14/2023 04:39 pm) PATIENT INFO: ID #: [id number] : [birth year] (67 yrs)(F) Name: PURNIMA THACKER Visit Date: 05/14/2023 03:44 pm PERFORMED BY: Attending: Meena CULP, Hayden Stafford Resident: Anand Camejo MD Performed By: Consuelo Tello RDMS Referred By: ALIRIO HUDSON Location: [place] SERVICE(S) PROVIDED: URETRO - Retroperitoneal Complete - [id number] INDICATIONS: [facility] COMPARISON: CT: Abdomen/Pelvis 05/11/23 RIGHT [...] PM Electronically signed by: Hayden Robledo MD, [facility] ([phone]), at 05/14/2023 4:32 PM Thank you for letting us participate in the care of this patient. If you are a health care provider and have any questions regarding this report, please contact the number above. For patients who have questions, please contact the health pet care assistant that requested your imaging first. Hayden Robledo, Staff Physician Electronically Signed Final Report 05/14/2023 04:39 pm Alirio Hudson MD IMG US GEN ORDERABL ES * CK (05/14/2023 3:17 PM EDT) Pathologist [facility] Creatine Kinase 123 0 - 160 unit/L [facility] Blood 05/14/2023 3:17 PM EDT 05/14/2023 3:31 PM EDT Narrative Resulting Agency Comment Spec In Lab Alirio Hudson MD CHEMISTRY ORDERABLE S [facility] [place] [address] * (ABNORMAL) Uric acid (05/14/2023 3:17 PM EDT) Pathologist [facility] Uric Acid 14.9(H) 2.5 - 6.5 mg/dL [facility] Blood 05/14/2023 3:17 PM EDT 05/14/2023 3:31 PM EDT Narrative Resulting Agency Comment Spec In Lab Alirio Hudson MD CHEMISTRY ORDERABLE S Performing Organization Address City/[facility] Co de Phone Number [facility] [place] [address] * (ABNORMAL) Osmolality (05/14/2023 3:17 PM EDT) Osmolality 311(H) 275 - 295 mOsm/kg [facility] Blood 05/14/2023 3:17 PM EDT 05/14/2023 3:31 PM EDT Narrative Resulting Agency Comment Spec In Lab Alirio Hudson MD CHEMISTRY ORDERABLE S Performing Organization Address [facility] de Phone Number [facility] [place] [address] * (ABNORMAL) Differential, Automated (05/14/2023 1:10 AM EDT) Neutrophil % 87.2 % [facility] Neutrophil Absolute 9.74(H) 1.70 - 6.10 x10(3)/mc L [facility] Lymph % 3.9 % [facility] Lymphocytes Abs 0.4(L) 0.9 - 3.2 x10(3)/mc L [facility] Monocyte % 7.9 % [facility] Monocyte Abs 0.9 0.3 - 0.9 x10(3)/mc L [facility] Eos % 0.0 % [facility] Eosinophils Abs 0.0 0.0 - 0.4 x10(3)/mc L [facility] Basophil % 0.1 % [facility] Baso Absolute 0.0 0.0 - 0.1 x10(3)/mc L [facility] Immature Gran % 0.90 % [facility] Comment: Immature granulocytes(IG's)percentage and absolute count will include metamyelocytes, myelocytes, and promyelocytes. Blood smears from CBCs yielding IG's will be scanned manually for concordance. If this scan disagrees with the automated IG or if promyelocytes are noted, a manual differential will be performed. Immature Gran Absolute 0.10(H) 0.00 - 0.04 x10(3)/mc L [facility] Blood 05/14/2023 1:10 AM EDT 05/14/2023 1:24 AM EDT Narrative Resulting Agency Comment Spec In Lab Bonita TOBAR HEMATOLOGY ORDERABLE S [facility] [place] [address] * (ABNORMAL) Hemogram (05/14/2023 1:10 AM EDT) White Blood Cell 11.2(H) 4.0 - 9.5 x10(3)/mc L [facility] Red Blood Cell 2.19(L) 4.00 - 5.21 x10(6)/mc L [facility] Hemoglobin 7.2(L) 11.7 - 15.5 g/dL [facility] Hematocrit 20.3(L) 35.7 - 45.8 % [facility] Mean Cell Volume 92.7 82.6 - 94.4 fL [facility] Mean Cell Hemoglobin 32.9(H) 27.1 - 32.0 pg [facility] Mean Cell Hemoglobin Concentration 35.5(H) 31.7 - 35.0 g/dL [facility] Platelet 112(L) 145 - 357 x10(3)/mc L [facility] RDW Standard Deviation 41.4 37.0 - 46.0 fL [facility] RDW coefficient of variation 12.5 11.5 - 14.1 % [facility] Mean Platelet Volume 10.4 7.6 - 12.9 fL [facility] NRBC% auto 1.5 % [facility] NRBC Absolute 0.170(H) 0.000 - 0.000 x10(3)/mc L [facility] Blood 05/14/2023 1:10 AM EDT 05/14/2023 1:24 AM EDT Narrative Resulting Agency Comment Spec In Lab Bonita TOBAR HEMATOLOGY ORDERABLE S [facility] [place] [address] * (ABNORMAL) Comprehensive metabolic panel (non-fasting) (05/14/2023 1:10 AM EDT) Glucose 120 65 - 199 mg/dL [facility] Comment:Diabetes: >=200 mg/d L plus symptoms Blood Urea Nitrogen 98(H) 8 - 18 mg/dL [facility] Creatinine 4.80(H) 0.70 - 1.20 mg/dL [facility] Comment:result rechecked-ssc Sodium 132(L) 135 - 145 mmol/L [facility] Potassium 4.1 3.5 - 5.0 mmol/L [facility] Comment: Please note: ??Patients with WBC >100,000 may have falsely elevated Potassium levels. ??For accurate Potassium quantification in these patients send serum separator tube (gold top) for subsequent determinations. ??Contact the Clinical Chemistry Laboratory if there are any questions. Chloride 94(L) 98 - 107 mmol/L [facility] Carbon Dioxide 18(L) 22 - 31 mmol/L [facility] Anion Gap 20(H) 5 - 15 mmol/L [facility] Calcium 8.5 8.5 - 10.5 mg/dL [facility] Protein, Total 5.8(L) 6.1 - 8.0 g/dL [facility] Albumin 3.6 3.2 - 5.2 g/dL [facility] Aspartate Aminotransferase 319(H) 0 - 30 unit/L [facility] LABORATORY Alanine Aminotransferase 437(H) 0 - 30 unit/L [facility] Alkaline Phosphatase 86 35 - 105 unit/L [facility] Bilirubin, Total 0.4 0.2 - 1.3 mg/dL [facility] Est Glomerular Filtration Rate 9(L) >=60 mL/min/1. 73 m?? [facility] Comment: This patient's estimated GFR [...] CHEMISTRY ORDERABLE S Performing Organization Address [facility] de Phone Number [facility] [place] [address] * APTT (05/13/2023 10:15 AM EDT) Partial Thromboplastin Time 27 25 - 37 sec [facility] Comment: The PTT is NOT appropriate for heparin monitoring. Use the Anti-Xa level for heparin monitoring (HEP UFH) or LMWH monitoring (HEP LMW). A PTT less than 37 seconds generally indicates adequate hemostasis. Blood 05/13/2023 10:1 5 AM EDT 05/13/2023 10:46 AM EDT Narrative Resulting Agency Comment Spec In Lab Alirio Hudson MD HEMATOLOGY ORDERABL ES Performing Organization Address [facility] Co de Phone Number [facility] [place] [place] [address] * (ABNORMAL) Prothrombin Time (05/13/2023 10:15 AM EDT) Prothrombin Time 14.6(H) 9.4 - 12.5 sec [facility] International Normalization Ratio 1.3 [facility] Comment: An INR <2.0 indicates [...] MD HEMATOLOGY ORDERABL ES Performing Organization Address City/[facility]/ZIP Co de Phone Number [facility] [place] [address] * EKG 12 Lead (05/13/2023 9:22 AM EDT) Ventricular rate 92 BPM MUSE SYSTEM Atrial Rate 92 BPM MUSE SYSTEM P-R Interval 140 ms MUSE SYSTEM QRS Duration 104 ms MUSE SYSTEM Q-T Interval 384 ms MUSE SYSTEM QTC Calculated (Bezet) 474 ms MUSE SYSTEM Calculated P Rush 33 degrees MUSE SYSTEM Calculated R Rush 41 degrees MUSE SYSTEM Calculated T Rush -35 degrees MUSE SYSTEM INTERPRETATION Sinus rhythm with frequent Premature ventricular complexes Septal infarct , age undetermined ST & T wave abnormality, consider lateral ischemia Abnormal ECG When compared with ECG of 12-MAY-2023 10:10, Premature ventricular complexes are now Present I personally reviewed the tracing and edited the fellows interpretation Confirmed by fellow MD Anitha, [facility] ([id number]) on 05/13/2023 3:25:30 PM Confirmed by Maxx Best ([id number]) on 05/13/2023 8:30:56 PM MUSE SYSTEM 05/13/2023 9:22 AM EDT 05/13/2023 8:30 PM EDT Alirio Hudson MD ECG ORDERABLES Performing Organization Address City/[facility]/ZIP Co de Phone Number MUSE SYSTEM * (ABNORMAL) Differential, Automated (05/13/2023 1:15 AM EDT) Neutrophil % 88.1 % [facility] Neutrophil Absolute 7.62(H) 1.70 - 6.10 x10(3)/mc L [facility] Lymph % 3.1 % [facility] Lymphocytes Abs 0.3(L) 0.9 - 3.2 x10(3)/mc L [facility] Monocyte % 7.9 % [facility] ITAL [facility] Monocyte Abs 0.7 0.3 - 0.9 x10(3)/mc L [facility] Eos % 0.0 % [facility] Eosinophils Abs 0.0 0.0 - 0.4 x10(3)/mc L [facility] Basophil % 0.1 % [facility] Baso Absolute 0.0 0.0 - 0.1 x10(3)/ L [facility] Immature Gran % 0.80 % [facility] Comment: Immature granulocytes(IG's)percentage and absolute count will include metamyelocytes, myelocytes, and promyelocytes. Blood smears from CBCs yielding IG's will be scanned manually for concordance. If this scan disagrees with the automated IG or if promyelocytes are noted, a manual differential will be performed. Immature Gran Absolute 0.07(H) 0.00 - 0.04 x10(3)/ L [facility] Blood 05/13/2023 1:15 AM EDT 05/13/2023 1:29 AM EDT Narrative Resulting Agency Comment Spec In Lab Lorri TOBAR HEMATOLOGY ORDERABLE S Performing Organization Address City/State/[facility] Co de Phone Number [facility] [place] [place] [address] * (ABNORMAL) Hemogram (05/13/2023 1:15 AM EDT) White Blood Cell 8.6 4.0 - 9.5 x10(3)/mc L [facility] Red Blood Cell 2.37(L) 4.00 - 5.21 x10(6)/ L [facility] Hemoglobin 7.8(L) 11.7 - 15.5 g/dL [facility] Hematocrit 22.2(L) 35.7 - 45.8 % [facility] Mean Cell Volume 93.7 82.6 - 94.4 fL [facility] Mean Cell Hemoglobin 32.9(H) 27.1 - 32.0 pg [facility] Mean Cell Hemoglobin Concentration 35.1(H) 31.7 - 35.0 g/dL [facility] Platelet 130(L) 145 - 357 x10(3)/mc L [facility] RDW Standard Deviation 41.7 37.0 - 46.0 fL [facility] RDW coefficient of variation 12.5 11.5 - 14.1 % [facility] Mean Platelet Volume 10.2 7.6 - 12.9 fL [facility] NRBC% auto 0.5 % [facility] ITAL [facility] NRBC Absolute 0.040(H) 0.000 - 0.000 x10(3)/mc L [facility] Blood 05/13/2023 1:15 AM EDT 05/13/2023 1:29 AM EDT Narrative Resulting Agency Comment Spec In Lab Lorri TOBAR HEMATOLOGY ORDERABLE S Performing Organization Address City/[facility] Co de Phone Number [facility] [place] [address] * (ABNORMAL) Hepatic Function Panel (05/13/2023 1:15 AM EDT) Protein, Total 5.5(L) 6.1 - 8.0 g/dL [facility] Albumin 3.0(L) 3.2 - 5.2 g/dL [facility] Aspartate Aminotransferase 792(H) 0 - 30 unit/L [facility] Alanine Aminotransferase 903(H) 0 - 30 unit/L [facility] Alkaline Phosphatase 85 35 - 105 unit/L [facility] Bilirubin, Total 0.5 0.2 - 1.3 mg/dL [facility] Bilirubin, Direct 0.3 0.0 - 0.3 mg/dL [facility] Blood 05/13/2023 1:15 AM EDT 05/13/2023 1:29 AM EDT Narrative Resulting Agency Comment Spec In Lab Alirio Hudson MD CHEMISTRY ORDERABLE S Performing Organization Address City/[facility]/ZIP Co de Phone Number [facility] [place] [address] * (ABNORMAL) Basic Metabolic Panel (non-fasting) (05/13/2023 1:15 AM EDT) Glucose 107 65 - 199 mg/dL [facility] Comment:Diabetes: >=200 mg/d L plus symptoms Blood Urea Nitrogen 82(H) 8 - 18 mg/dL [facility] Creatinine 3.15(H) 0.70 - 1.20 mg/dL [facility] Comment:result rechecked-JSJ Sodium 132(L) 135 - 145 mmol/L [facility] Potassium 3.8 3.5 - 5.0 mmol/L [facility] Comment: Please note: ??Patients with WBC >100,000 may have falsely elevated Potassium levels. ??For accurate Potassium quantification in these patients send serum separator tube (gold top) for subsequent determinations. ??Contact the Clinical Chemistry Laboratory if there are any questions. Chloride 95(L) 98 - 107 mmol/L [facility] Carbon Dioxide 20(L) 22 - 31 mmol/L [facility] Anion Gap 17(H) 5 - 15 mmol/L [facility] Calcium 8.3(L) 8.5 - 10.5 mg/dL [facility] Est Glomerular Filtration Rate 16(L) >=60 mL/min/1. 73 m?? [facility] Comment: This patient's estimated GFR [...] Lab Alirio Hudson MD CHEMISTRY ORDERABLE S [facility] [place] [address] * (ABNORMAL) BLOOD GAS 2 ARTERIAL (05/12/2023 3:57 PM EDT) pH, Arterial 7.39 7.35 - 7.45 [facility] PCO2, Arterial 33(L) 35 - 45 mmHg [facility] PO2, Arterial 101 85 - 104 mmHg [facility] Bicarbonate, Arterial 19.5(L) 20.0 - 26.0 mmol/L [facility] Base Excess, Arterial -5.5(L) -3.0 - 3.0 mmol/L [facility] Hgb Blood Gas 9.8(L) 11.7 - 15.5 g/dL [facility] Oxyhemoglobin, Arterial 95.2 94.0 - 97.0 % [facility] Carboxyhemoglob in, Arterial 0.2 % [facility] Comment: Nonsmokers: 0.5-1.5% COHB Smokers: Variable, but usually less than 10% Toxic: 20-30% COHB Lethal: Greater than 60% COHB Methemoglobin, Arterial 0.8 <=1.5 % [facility] Na Whole Blood 129(L) 135 - 145 mmol/L [facility] K Whole Blood 3.8 3.5 - 5.0 mmol/L [facility] Comment: Please note: Patients with WBC >100,000 may have falsely elevated Potassium levels. Contact the Clinical Chemistry Laboratory if there are any questions. ICa Whole Blood 1.05(L) 1.15 - 1.33 mmol/L [facility] Comment: Note: ??Total bilirubin higher than 20 mg/dL may lead to falsely low ionized calcium. CL Whole Blood 96(L) 98 - 107 mmol/L [facility] Gluc Whole Bld 178 65 - 199 mg/dL [facility] Comment:Diabetes: >=200 mg/d L plus symptoms. Lactate WB 1.5 0.5 - 2.2 mmol/L [facility] FIO2 Art 40 % [facility] PF Ratio Art 252 [facility] Blood 05/12/2023 3:57 PM EDT 05/12/2023 3:57 PM EDT Alirio Hudson MD POINT OF CARE TEST ORDERABLES [facility] [place] [address] * (ABNORMAL) Coox2 (05/12/2023 2:25 PM EDT) pO2, Coox 37 mmHg [facility] Hgb Blood Gas 9.5(L) 11.7 - 15.5 g/dL [facility] Oxyhemoglobin, Coox 59.9 % [facility] Carboxyhemoglo bin, Coox 0.3 % [facility] Comment: Nonsmokers: 0.5-1.5% COHB Smokers: Variable, but usually less than 10% Toxic: 20-30% COHB Lethal: Greater than 60% COHB Methemoglobin, Coox 0.7 <=1.5 % [facility] Source Coox Mixed Venous [facility] Blood 05/12/2023 2:25 PM EDT 05/12/2023 2:25 PM EDT Alirio Hudson MD POINT OF CARE TEST ORDERABLES [facility] [place] [address] * (ABNORMAL) BLOOD GAS 2 ARTERIAL (05/12/2023 2:23 PM EDT) pH, Arterial 7.37 7.35 - 7.45 [facility] PCO2, Arterial 36 35 - 45 mmHg [facility] PO2, Arterial 102 85 - 104 mmHg [facility] Bicarbonate, Arterial 20.4 20.0 - 26.0 mmol/L [facility] Base Excess, Arterial -4.8(L) -3.0 - 3.0 mmol/L [facility] Hgb Blood Gas 12.7 11.7 - 15.5 g/dL [facility] Oxyhemoglobin, Arterial 95.4 94.0 - 97.0 % [facility] Carboxyhemoglob in, Arterial 0.3 % [facility] Comment: Nonsmokers: 0.5-1.5% COHB Smokers: Variable, but usually less than 10% Toxic: 20-30% COHB Lethal: Greater than 60% COHB Methemoglobin, Arterial 0.7 <=1.5 % [facility] Na Whole Blood 129(L) 135 - 145 mmol/L [facility] K Whole Blood 3.7 3.5 - 5.0 mmol/L [facility] Comment: Please note: Patients with WBC >100,000 may have falsely elevated Potassium levels. Contact the Clinical Chemistry Laboratory if there are any questions. ICa Whole Blood 1.05(L) 1.15 - 1.33 mmol/L [facility] Comment: Note: ??Total bilirubin higher than 20 mg/dL may lead to falsely low ionized calcium. CL Whole Blood 95(L) 98 - 107 mmol/L [facility] Gluc Whole Bld 168 65 - 199 mg/dL [facility] Comment:Diabetes: >=200 mg/d L plus symptoms. Lactate WB 1.8 0.5 - 2.2 mmol/L [facility] FIO2 Art 40 % [facility] PF Ratio Art 255 [facility] Blood 05/12/2023 2:23 PM EDT 05/12/2023 2:23 PM EDT Alirio Hudson MD POINT OF CARE TEST ORDERABLES [facility] [place] [place] [address] * (ABNORMAL) Troponin (05/12/2023 2:05 PM EDT) Troponin-T, High Sensitivity 1,022(H) <=14 ng/L [facility] Comment: This patient's troponin T [...] can be found in the [facility] Laboratory Test Catalog Troponin - [facility] Laboratory Test Catalog Reference: Fourth [place] Definition of Myocardial Infarction. Journal of the [place] [employer] 2018;72:6543-8129 Blood 05/12/2023 2:05 PM EDT 05/12/2023 2:14 PM EDT Narrative Resulting Agency Comment Spec In Lab Alirio Hudson MD CHEMISTRY ORDERABLE S Performing Organization Address [facility]/ZIP Co de Phone Number [facility] [place] [address] * (ABNORMAL) Hemoglobin (05/12/2023 2:05 PM EDT) Hemoglobin 8.5(L) 11.7 - 15.5 g/dL [facility] Blood 05/12/2023 2:05 PM EDT 05/12/2023 2:14 PM EDT Narrative Resulting Agency Comment Spec In Lab Alirio Hudson MD HEMATOLOGY ORDERABL ES Performing Organization Address [facility] Co de Phone Number [facility] [place] [place] [address] * Potassium (05/12/2023 2:05 PM EDT) Potassium 3.9 3.5 - 5.0 mmol/L [facility] Comment: Please note: ??Patients with [...] CHEMISTRY ORDERABLE S Performing Organization Address [facility] Co de Phone Number [facility] [place] [place] [address] * (ABNORMAL) BLOOD GAS 2 ARTERIAL (05/12/2023 11:05 AM EDT) pH, Arterial 7.34(L) 7.35 - 7.45 [facility] PCO2, Arterial 42 35 - 45 mmHg [facility] PO2, Arterial 73(L) 85 - 104 mmHg [facility] Bicarbonate, Arterial 22.1 20.0 - 26.0 mmol/L [facility] Base Excess, Arterial -3.6(L) -3.0 - 3.0 mmol/L [facility] Hgb Blood Gas 9.3(L) 11.7 - 15.5 g/dL [facility] Oxyhemoglobin, Arterial 89.3(L) 94.0 - 97.0 % [facility] Carboxyhemoglob in, Arterial 0.2 % [facility] Comment: Nonsmokers: 0.5-1.5% COHB Smokers: Variable, but usually less than 10% Toxic: 20-30% COHB Lethal: Greater than 60% COHB Methemoglobin, Arterial 0.9 <=1.5 % [facility] Na Whole Blood 131(L) 135 - 145 mmol/L [facility] K Whole Blood 3.8 3.5 - 5.0 mmol/L [facility] Comment: Please note: Patients with WBC >100,000 may have falsely elevated Potassium levels. Contact the Clinical Chemistry Laboratory if there are any questions. ICa Whole Blood 1.04(L) 1.15 - 1.33 mmol/L [facility] Comment: Note: ??Total bilirubin higher than 20 mg/dL may lead to falsely low ionized calcium. CL Whole Blood 96(L) 98 - 107 mmol/L [facility] Gluc Whole Bld 152 65 - 199 mg/dL [facility] Comment:Diabetes: >=200 mg/d L plus symptoms. Lactate WB 2.8(H) 0.5 - 2.2 mmol/L [facility] FIO2 Art 40 % [facility] PF Ratio Art 182 [facility] Blood 05/12/2023 11:0 5 AM EDT 05/12/2023 11:05 AM EDT Alirio Hudson MD POINT OF CARE TEST ORDERABLES [facility] [address] * (ABNORMAL) BLOOD GAS 2 ARTERIAL (05/12/2023 10:14 AM EDT) pH, Arterial 7.18(Criti gabrielle) 7.35 - 7.45 [facility] Comment:Noted by instrument technologist. PCO2, Arterial 45 35 - 45 mmHg [facility] PO2, Arterial 186(H) 85 - 104 mmHg [facility] Bicarbonate, Arterial 16.2(L) 20.0 - 26.0 mmol/L [facility] Base Excess, Arterial -12.2(L) -3.0 - 3.0 mmol/L [facility] Hgb Blood Gas 10.0(L) 11.7 - 15.5 g/dL [facility] Oxyhemoglobin, Arterial 97.0 94.0 - 97.0 % [facility] Carboxyhemoglob in, Arterial 0.2 % [facility] Comment: Nonsmokers: 0.5-1.5% COHB Smokers: Variable, but usually less than 10% Toxic: 20-30% COHB Lethal: Greater than 60% COHB Methemoglobin, Arterial 0.9 <=1.5 % [facility] Na Whole Blood 129(L) 135 - 145 mmol/L [facility] K Whole Blood 3.6 3.5 - 5.0 mmol/L [facility] Comment: Please note: Patients with WBC >100,000 may have falsely elevated Potassium levels. Contact the Clinical Chemistry Laboratory if there are any questions. ICa Whole Blood 1.10(L) 1.15 - 1.33 mmol/L [facility] Comment: Note: ??Total bilirubin higher than 20 mg/dL may lead to falsely low ionized calcium. CL Whole Blood 97(L) 98 - 107 mmol/L [facility] Gluc Whole Bld 161 65 - 199 mg/dL [facility] Comment:Diabetes: >=200 mg/d L plus symptoms. Lactate WB 3.3(H) 0.5 - 2.2 mmol/L [facility] FIO2 Art 100 % [facility] PF Ratio Art 186 [facility] Blood 05/12/2023 10:1 4 AM EDT 05/12/2023 10:14 AM EDT Alirio Hudson MD POINT OF CARE TEST ORDERABLES Performing Organization Address [facility] [place] [address] * EKG 12 Lead (05/12/2023 10:10 AM EDT) Ventricular rate 116 BPM MUSE SYSTEM Atrial Rate 116 BPM MUSE SYSTEM P-R Interval 158 ms MUSE SYSTEM QRS Duration 114 ms MUSE SYSTEM Q-T Interval 348 ms MUSE SYSTEM QTC Calculated (Bezet) 483 ms MUSE SYSTEM Calculated P Rush 37 degrees MUSE SYSTEM Calculated R Rush 31 degrees MUSE SYSTEM Calculated T Rush -138 degrees MUSE SYSTEM INTERPRETATION Sinus tachycardia [...] interpretation Confirmed by fellow MD Anuja, Jim ([id number]) on 05/12/2023 1:04:20 PM Confirmed by MD Mono, Eleni ([id number]) on 05/12/2023 9:28:34 PM MUSE SYSTEM 05/12/2023 10:1 0 AM EDT 05/12/2023 9:28 PM EDT Alirio Hudson MD ECG ORDERABLES Performing Organization Address [facility] Co de Phone Number [...] questions please contact the health pet care assistant that requested your imaging first. ? Electronically signed by: Chyna Johnson MD, [facility] ??([phone]), at 05/12/2023 10:08 AM Narrative 05/12/2023 10:08 AM EDT EXAMINATION: XR CHEST ONE VIEW CLINICAL HISTORY: Post TAVR TECHNIQUE: 1 view of the chest COMPARISON: Chest radiograph from earlier today FINDINGS: Interval placement of endotracheal tube with tip terminating 2 cm above the shira. Interval placement of enteric tube projecting along the expected course of the esophagus and outside the ubhym-yp-hazy. Interval retraction of right IJ approach pulmonary [...] expected course ofthe esophagus and outside the oacml-on-duhg. Interval retraction of right IJ approach pulmonary [...] have questions please contactthe health pet care assistant that requested your imaging first. Electronically signed by: Chyna Johnson MD, [facility]([phone]), at 05/12/2023 10:08 AM Alirio Hudson MD IMG DX ORDERABLES * ECHO LMTD W/O CONTRAST W LMTD SPEC DOPP COLOR DOPP (05/12/2023 9:23 AM EDT) EF 20 HEARTLAB SYSTEM Anatomical Region Laterality Modality Cardiac Other 05/12/2023 7:33 AM EDT Narrative 05/12/2023 10:18 AM EDT ? Echocardiogram Report Name: PURNIMA THACKER ?Study Date: 05/12/2023 07:33 AMBP: 96/63 mmHg ? Patient Location: [address] : 1955 ? Height: 154 cm ? Account: [id number] Age: 67 yrs ? Weight: 75 kg Gender: Female ?BSA: 1.7 m2 Ordering Physician: RADHA HOLLINS Referring Physician: RADHA HOLLINS Performed By: Dilma Bee RDCS Reason For Study: Guidance for TAVR procedure Exam Location: [facility]. Interpretation Summary PRE TAVR: There is [...] mL/m2. POST TAVR: Normal function of the ljxvm-bw-zipln prosthesis. See below for hemodynamic parameters. Slight improvement in left and right ventricular systolic function. LVEF now 20-25%. No pericardial effusion. See report for additional findings. Procedure Limited - 63137. Doppler - 74130. Color Doppler - 03135. Left Ventricle Left ventricle is of normal [...] Date: 307:33 AMBP: 96/63 mmHg Patient Location: [address] : 1955 Height: 154 cm Account: [id number] Age: 67 yrs Weight: 75 kg Gender: Female BSA: 1.7 m2 Ordering Physician: RADHA HOLLINS Referring Physician: RADHA HOLLINS Performed By: Dilma Bee RDCS Reason For Study: Guidance for TAVR procedure Exam Location: [facility]. Interpretation Summary PRE TAVR: There is [...] 28mL/m2. POST TAVR: Normal function of the ecsmz-xa-yjxgq prosthesis. See belowfor hemodynamic parameters. Slight improvement in left and right ventricularsystolic function. LVEF now 20-25%. No pericardial effusion. See report for additional findings. Procedure Limited - 93255. Doppler - 52700. Color Doppler - 54060. Left Ventricle Left ventricle is of normal [...] Modality Other Narrative 05/12/2023 2:37 PM EDT ?[facility] ? Cardiac Catheterization/Intervention Report ? Patient Name: Purnima Thacker. ? Procedure Date: 05/12/2023 ? A #: [id number] ? Primary Physician: Zachary, Antelmo De La Fuente ? Case #: [id number] ? File Name: [id number] ? Catheterization Order Number: [id number] ? [facility] ? Final Report [place], [place] ? Patient Name: ? Purnima M. Kirstie ? ID#: ?[id number] ? : ?1955 ? Procedure Date: ? [...] Device Deployment ?* Temporary Pacemaker Insertion In Sack Sewer Machine ?* Endotracheal Intubation By Non-Cath Physician ?* [...] guide. ??A premounted 4.00 x 30 mm [place] (MINNA) was ? deployed with a maximum [...] calculated STS risk score was 30.1%. A yptwv-lw-csdax ?procedure was performed on the pre-existing bioprosthetic stented ?prosthesis. The priority of the scmfx-fp-bpxdq procedure was Elective. ?The procedure was performed [...] Lai 3 Ultra RESILIA 23 mm THV (s/j=[id number]) transcatheter ?valve was inserted using standard technique. [...] to nor was it given in the ?photographic laboratory technician. ?Recommended anti-platelet/anti-thrombotic regimen: ?Continue aspirin 81 mg daily for indefinitely. ?These recommendations are made at the time of the intervention. Patient ?and provider preferences or a changing clinical situation may require ?modification of this regimen. Consult [facility] Interventional Cardiology for ?questions. ? Conclusions: ?* [...] regimen. ? Comments: ?Successful right transfemoral TAVR Pcftf-dc-Scvpm with a 23 mm Lai 3 ?THV. [...] insertion-coronary, access site angiography, ?temporary pacemaker in photographic laboratory technician, intubation-non cath physician, vascular ?closure device, transthoracic echo ??and TAVR. Dr. Alirio Hudson M.D. ?performed the left heart catheterization, access site angiography, ?temporary pacemaker in photographic laboratory technician, vascular closure device, transthoracic ?echo , TAVR and CPR during cath. Dr. Lynda Mcgowan M.D. performed the ABG, ?anesthesia and intubation-non cath physician. ? Antelmo Sharma M.D. ? Electronically Signed by: Antelmo Sharma M.D. ? Report Finalized: 05/12/2023 ??14:31 ? Report Last Ammended: 07/01/2023 ??11:30 ? Procedure Note Antelmo Sharma MD - 07/01/2023 [facility] Catheterization/Intervention Report Patient Name: Purnima Thacker Procedure Date: 05/12/2023 A #: [id number] Primary Physician: Antelmo Sharma Case #: [id number] File Name: [id number] Catheterization Order Number: [id number] [facility] FinalReport [place], [place] Patient Name: Purnima Thacker ID#:[id number] :[id number] Procedure Date: May 12, 2023 Case #: [id number] Room: 6 Case Physicians: Antelmo Sharma M.D. Start: 08:03 Alirio Hudson M.D. Admission:05/08/2023 Lynda Mcgowan M.D. Discharge:05/22/2023 Fellow: Rebekah Tejeda M.D. Referring Physician: Mario Alberto Chin M.D. Procedures: * Coronary Angiography * Left Heart Catheterization * Coronary Stent Insertion * Transcatheter Aortic Valve Replacement * Vascular Closure Device Deployment * Temporary Pacemaker Insertion In Sack Sewer Machine * Endotracheal Intubation By Non-Cath Physician * [...] A premounted 4.00 x 30 mm Nils Sierra (MINNA) was deployed with a maximum inflation [...] calculated STS risk score was 30.1%. A bnzzc-om-mocon procedure was performed on the pre-existing bioprosthetic stented prosthesis. The priority of the [id number] procedure wasElective. The procedure was performed under Moderate sedation performed byLynda Mcgowan M.D. (see anesthesia report for additional details). Alirio Hudson M.D. participated in the case (see Cardiac Surgery reportfor additional details). The TAVR sheath was a 14 Fr Corona eSheath Introducer and theaccess site was femoral. Rapid ventricular pacing was performed. An Corona Lai 3 Ultra RESILIA 23 mm THV (s/f=[id number])transcatheter valve was inserted using standard technique. The [...] prior to nor was it given inthe photographic laboratory technician. Recommended anti-platelet/anti-thrombotic regimen: Continue aspirin 81 mg daily for indefinitely. These recommendations are made at the time of the intervention.Patient and provider preferences or a changing clinical situation mayrequire modification of this regimen. Consult [facility] Interventional Cardiologyfor questions. Conclusions: * Nonobstructive disease [...] this regimen. Comments: Successful right transfemoral TAVR Rqrck-vs-Darvc with a 23 mmSapien 3 THV. We [...] insertion-coronary, access site angiography, temporary pacemaker in photographic laboratory technician, intubation-non cath physician,vascular closure device, transthoracic echo and TAVR. Dr. Alirio Hudson M.D. performed the left heart catheterization, access site angiography, temporary pacemaker in photographic laboratory technician, vascular closure device,transthoracic echo , [...] pH, POC 7.20(Crit ical) 7.35 - 7.45 [facility] Comment:Critical value OK, C C Lab. pCO2, POC 42 35 - 45 mmHg [facility] pO2, POC 260(H) 85 - 104 mmHg [facility] Base Excess, POC -11.0(L) -3.0 - 3.0 mmol/L [facility] Bicarbonate, POC 16.7(L) 20.0 - 26.0 mmol/L [facility] Sodium, POC 129(L) 135 - 145 mmol/L [facility] POC Potassium 3.8 3.5 - 5.0 mmol/L [facility] Ionized Calcium, POC 1.12(L) 1.15 - 1.33 mmol/L [facility] POC Hematocrit 23.0(L) 34.0 - 45.0 % [facility] POC Calc Hgb 7.8(L) 11.2 - 15.7 g/dL [facility] Comment:The calculation of h emoglobin from hematocrit assumes a normal MCHC. POC Bgas Loc CC Lab [facility] Blood 05/12/2023 8:50 AM EDT 05/13/2023 12:00 PM EDT Alirio Hudson MD CHEMISTRY ORDERABLE S [facility] [place] [address] * (ABNORMAL) Point of Care Blood Gas Historical (05/12/2023 8:10 AM EDT) pH, POC 7.27(Crit ical) 7.35 - 7.45 [facility] Comment:Critical value OK, C C Lab. pCO2, POC 37 35 - 45 mmHg [facility] pO2, POC 29(Critic al) 85 - 104 mmHg [facility] Comment:Critical value OK, C C Lab. Base Excess, POC -10.0(L) -3.0 - 3.0 mmol/L [facility] Bicarbonate, POC 16.7(L) 20.0 - 26.0 mmol/L [facility] Sodium, POC 123(L) 135 - 145 mmol/L [facility] POC Potassium 4.0 3.5 - 5.0 mmol/L [facility] Ionized Calcium, POC 1.12(L) 1.15 - 1.33 mmol/L [facility] POC Hematocrit 27.0(L) 34.0 - 45.0 % [facility] POC Calc Hgb 9.2(L) 11.2 - 15.7 g/dL [facility] Comment:The calculation of h emoglobin from hematocrit assumes a normal MCHC. POC Bgas Loc CC Lab [facility] Blood 05/12/2023 8:10 AM EDT 05/13/2023 12:00 PM EDT Alirio Hudson MD CHEMISTRY ORDERABLE S Performing Organization Address City/[facility]/ZIP Co de Phone Number [facility] [place] [address] * (ABNORMAL) Lactate, whole blood, send to lab ([facility]) (05/12/2023 7:00 AM EDT) Lactate WB 2.4(H) 0.5 - 2.2 mmol/L [facility] Blood 05/12/2023 7:00 AM EDT 05/12/2023 7:09 AM EDT Narrative Resulting Agency Comment Spec In Lab Radha Hollins MD CHEMISTRY ORDERABL ES Performing Organization Address City/[facility]/ZIP Co de Phone Number [facility] [place] [address] * (ABNORMAL) Comprehensive metabolic panel (non-fasting) (05/12/2023 6:00 AM EDT) Glucose 167 65 - 199 mg/dL [facility] Comment:Diabetes: >=200 mg/d L plus symptoms Blood Urea Nitrogen 67(H) 8 - 18 mg/dL [facility] Creatinine 2.01(H) 0.70 - 1.20 mg/dL [facility] Sodium 131(L) 135 - 145 mmol/L [facility] Potassium 4.3 3.5 - 5.0 mmol/L [facility] Comment: Please note: ??Patients with WBC >100,000 may have falsely elevated Potassium levels. ??For accurate Potassium quantification in these patients send serum separator tube (gold top) for subsequent determinations. ??Contact the Clinical Chemistry Laboratory if there are any questions. Chloride 97(L) 98 - 107 mmol/L [facility] Carbon Dioxide 14(L) 22 - 31 mmol/L [facility] Anion Gap 20(H) 5 - 15 mmol/L [facility] Calcium 8.6 8.5 - 10.5 mg/dL [facility] Protein, Total 6.3 6.1 - 8.0 g/dL [facility] Albumin 3.5 3.2 - 5.2 g/dL [facility] Aspartate Aminotransferase 1,435(H) 0 - 30 unit/L [facility] Alanine Aminotransferase 1,174(H) 0 - 30 unit/L [facility] Alkaline Phosphatase 100 35 - 105 unit/L [facility] Bilirubin, Total 0.9 0.2 - 1.3 mg/dL [facility] Est Glomerular Filtration Rate 27(L) >=60 mL/min/1. 73 m?? [facility] Comment: This patient's estimated GFR [...] CHEMISTRY ORDERABL ES Performing Organization Address [facility] Co de Phone Number [facility] [place] [address] * (ABNORMAL) Coox2 (05/12/2023 5:08 AM EDT) pO2, Coox 24 mmHg [facility] Hgb Blood Gas 10.4(L) 11.7 - 15.5 g/dL [facility] Oxyhemoglobin, Coox 30.7 % [facility] Carboxyhemoglo bin, Coox 0.3 % [facility] Comment: Nonsmokers: 0.5-1.5% COHB Smokers: Variable, but usually less than 10% Toxic: 20-30% COHB Lethal: Greater than 60% COHB Methemoglobin, Coox 0.8 <=1.5 % [facility] Source Coox Mixed Venous [facility] Blood 05/12/2023 5:08 AM EDT 05/12/2023 5:08 AM EDT Radha Hollins MD POINT OF CARE TEST ORDERABLES Performing Organization Address [facility] Co de Phone Number [facility] [place] [address] * (ABNORMAL) Coox2 (05/12/2023 3:21 AM EDT) pO2, Coox 25 mmHg [facility] Hgb Blood Gas 10.8(L) 11.7 - 15.5 g/dL [facility] Oxyhemoglobin, Coox 32.7 % [facility] Carboxyhemoglo bin, Coox 0.3 % [facility] Comment: Nonsmokers: 0.5-1.5% COHB Smokers: Variable, but usually less than 10% Toxic: 20-30% COHB Lethal: Greater than 60% COHB Methemoglobin, Coox 0.7 <=1.5 % [facility] Source Coox Mixed Venous [facility] Blood 05/12/2023 3:21 AM EDT 05/12/2023 3:21 AM EDT Radha Hollins MD POINT OF CARE TEST ORDERABLES [facility] [place] [address] * (ABNORMAL) BLOOD GAS 2 ARTERIAL (05/12/2023 3:18 AM EDT) pH, Arterial 7.34(L) 7.35 - 7.45 [facility] PCO2, Arterial 30(L) 35 - 45 mmHg [facility] PO2, Arterial 72(L) 85 - 104 mmHg [facility] Bicarbonate, Arterial 16.0(L) 20.0 - 26.0 mmol/L [facility] Base Excess, Arterial -9.8(L) -3.0 - 3.0 mmol/L [facility] Hgb Blood Gas 11.0(L) 11.7 - 15.5 g/dL [facility] Oxyhemoglobin, Arterial 89.8(L) 94.0 - 97.0 % [facility] Carboxyhemoglob in, Arterial 0.3 % [facility] Comment: Nonsmokers: 0.5-1.5% COHB Smokers: Variable, but usually less than 10% Toxic: 20-30% COHB Lethal: Greater than 60% COHB Methemoglobin, Arterial 0.7 <=1.5 % [facility] Na Whole Blood 131(L) 135 - 145 mmol/L [facility] K Whole Blood 4.2 3.5 - 5.0 mmol/L [facility] Comment: Please note: Patients with WBC >100,000 may have falsely elevated Potassium levels. Contact the Clinical Chemistry Laboratory if there are any questions. ICa Whole Blood 1.12(L) 1.15 - 1.33 mmol/L [facility] Comment: Note: ??Total bilirubin higher [...] [facility] Blood 05/12/2023 3:18 AM EDT 05/12/2023 3:18 AM EDT Radha Hollins MD POINT OF CARE TEST ORDERABLES Performing Organization Address City/[facility] Co de Phone Number [facility] [place] [place] [address] * (ABNORMAL) Coox2 (05/12/2023 1:14 AM EDT) pO2, Coox 28 mmHg [facility] Hgb Blood Gas 10.9(L) 11.7 - 15.5 g/dL [facility] Oxyhemoglobin, Coox 37.3 % [facility] Carboxyhemoglo bin, Coox 0.3 % [facility] Comment: Nonsmokers: 0.5-1.5% COHB Smokers: Variable, but usually less than 10% Toxic: 20-30% COHB Lethal: Greater than 60% COHB Methemoglobin, Coox 0.5 <=1.5 % [facility] Source Coox Mixed Venous [facility] Blood 05/12/2023 1:14 AM EDT 05/12/2023 1:14 AM EDT Radha Hollins MD POINT OF CARE TEST ORDERABLES Performing Organization Address [facility] Co de Phone Number [facility] [place] [address] * (ABNORMAL) BLOOD GAS 2 ARTERIAL (05/12/2023 1:06 AM EDT) pH, Arterial 7.34(L) 7.35 - 7.45 [facility] PCO2, Arterial 30(L) 35 - 45 mmHg [facility] PO2, Arterial 81(L) 85 - 104 mmHg [facility] Bicarbonate, Arterial 15.7(L) 20.0 - 26.0 mmol/L [facility] Base Excess, Arterial -10.1(L) -3.0 - 3.0 mmol/L [facility] Hgb Blood Gas 11.0(L) 11.7 - 15.5 g/dL [facility] Oxyhemoglobin, Arterial 92.3(L) 94.0 - 97.0 % [facility] Carboxyhemoglob in, Arterial 0.2 % [facility] Comment: Nonsmokers: 0.5-1.5% COHB Smokers: Variable, but usually less than 10% Toxic: 20-30% COHB Lethal: Greater than 60% COHB Methemoglobin, Arterial 0.6 <=1.5 % [facility] Na Whole Blood 131(L) 135 - 145 mmol/L [facility] K Whole Blood 4.2 3.5 - 5.0 mmol/L [facility] Comment: Please note: Patients with WBC >100,000 may have falsely elevated Potassium levels. Contact the Clinical Chemistry Laboratory if there are any questions. ICa Whole Blood 1.13(L) 1.15 - 1.33 mmol/L [facility] Comment: Note: ??Total bilirubin higher than 20 mg/dL may lead to falsely low ionized calcium. CL Whole Blood 99 98 - 107 mmol/L [facility] Gluc Whole Bld 132 65 - 199 mg/dL [facility] Comment:Diabetes: >=200 mg/d L plus symptoms. Lactate WB 2.7(H) 0.5 - 2.2 mmol/L [facility] Flow Art 5.0 LPM [facility] Blood 05/12/2023 1:06 AM EDT 05/12/2023 1:06 AM EDT Radha Hollins MD POINT OF CARE TEST ORDERABLES [facility] [place] [address] * (ABNORMAL) Differential, Automated (05/12/2023 1:05 AM EDT) Neutrophil % 83.3 % [facility] Neutrophil Absolute 7.49(H) 1.70 - 6.10 x10(3)/mc L [facility] Lymph % 7.1 % [facility] Lymphocytes Abs 0.6(L) 0.9 - 3.2 x10(3)/mc L [facility] Monocyte % 8.9 % [facility] Monocyte Abs 0.8 0.3 - 0.9 x10(3)/mc L [facility] Eos % 0.0 % [facility] Eosinophils Abs 0.0 0.0 - 0.4 x10(3)/ L [facility] Basophil % 0.1 % [facility] Baso Absolute 0.0 0.0 - 0.1 x10(3)/ L [facility] Immature Gran % 0.60 % [facility] Comment: Immature granulocytes(IG's)percentage and absolute count will include metamyelocytes, myelocytes, and promyelocytes. Blood smears from CBCs yielding IG's will be scanned manually for concordance. If this scan disagrees with the automated IG or if promyelocytes are noted, a manual differential will be performed. Immature Gran Absolute 0.05(H) 0.00 - 0.04 x10(3)/ L [facility] Blood 05/12/2023 1:05 AM EDT 05/12/2023 1:15 AM EDT Narrative Resulting Agency Comment Spec In Lab Gianin Fletcher MD HEMATOLOGY ORDERABLE S [facility] [place] [address] * (ABNORMAL) Hemogram (05/12/2023 1:05 AM EDT) White Blood Cell 9.0 4.0 - 9.5 x10(3)/ L [facility] Red Blood Cell 3.01(L) 4.00 - 5.21 x10(6)/ L [facility] Hemoglobin 9.8(L) 11.7 - 15.5 g/dL [facility] Hematocrit 28.7(L) 35.7 - 45.8 % [facility] Mean Cell Volume 95.3(H) 82.6 - 94.4 fL [facility] Mean Cell Hemoglobin 32.6(H) 27.1 - 32.0 pg [facility] Mean Cell Hemoglobin Concentration 34.1 31.7 - 35.0 g/dL [facility] Platelet 186 145 - 357 x10(3)/ L [facility] RDW Standard Deviation 43.7 37.0 - 46.0 fL [facility] RDW coefficient of variation 12.7 11.5 - 14.1 % [facility] Mean Platelet Volume 10.3 7.6 - 12.9 fL [facility] NRBC% auto 0.0 % [facility] NRBC Absolute 0.000 0.000 - 0.000 x10(3)/mc L [facility] Blood 05/12/2023 1:05 AM EDT 05/12/2023 1:15 AM EDT Narrative Resulting Agency Comment Spec In Lab Gianni Fletcher MD HEMATOLOGY ORDERABLE S [facility] [place] [address] * (ABNORMAL) Comprehensive metabolic panel (non-fasting) (05/12/2023 1:05 AM EDT) Glucose 141 65 - 199 mg/dL [facility] Comment:Diabetes: >=200 mg/d L plus symptoms Blood Urea Nitrogen 63(H) 8 - 18 mg/dL [facility] Creatinine 1.86(H) 0.70 - 1.20 mg/dL [facility] Sodium 131(L) 135 - 145 mmol/L [facility] Potassium 4.4 3.5 - 5.0 mmol/L [facility] Comment: Please note: ??Patients with WBC >100,000 may have falsely elevated Potassium levels. ??For accurate Potassium quantification in these patients send serum separator tube (gold top) for subsequent determinations. ??Contact the Clinical Chemistry Laboratory if there are any questions. Chloride 96(L) 98 - 107 mmol/L [facility] Carbon Dioxide 14(L) 22 - 31 mmol/L [facility] Anion Gap 21(H) 5 - 15 mmol/L [facility] Calcium 9.0 8.5 - 10.5 mg/dL [facility] Protein, Total 6.6 6.1 - 8.0 g/dL [facility] Albumin 3.9 3.2 - 5.2 g/dL [facility] Aspartate Aminotransferase 1,227(H) 0 - 30 unit/L [facility] Alanine Aminotransferase 1,097(H) 0 - 30 unit/L [facility] Alkaline Phosphatase 108(H) 35 - 105 unit/L [facility] Bilirubin, Total 1.0 0.2 - 1.3 mg/dL [facility] Est Glomerular Filtration Rate 29(L) >=60 mL/min/1. 73 m?? [facility] Comment: This patient's estimated GFR [...] Lab Radha Hollins MD CHEMISTRY ORDERABL ES [facility] [place] [address] * XR Chest One View (05/12/2023 1:00 [...] questions please contact the health pet care assistant that requested your imaging first. ? Electronically signed by: Will Rowe MD, [facility] ([phone]), at 05/12/2023 3:16 AM Narrative 05/12/2023 3:16 [...] have questions please contactthe health pet care assistant that requested your imaging first. Radha Hollins MD IMG DX ORDERABLES * (ABNORMAL) Coox2 (05/12/2023 12:30 AM EDT) pO2, Coox 22 mmHg [facility] Hgb Blood Gas 10.9(L) 11.7 - 15.5 g/dL [facility] Oxyhemoglobin, Coox 25.1 % [facility] Carboxyhemoglo bin, Coox 0.3 % [facility] Comment: Nonsmokers: 0.5-1.5% COHB Smokers: Variable, but usually less than 10% Toxic: 20-30% COHB Lethal: Greater than 60% COHB Methemoglobin, Coox 1.4 <=1.5 % [facility] Source Coox Mixed Venous [facility] Blood 05/12/2023 12:3 0 AM EDT 05/12/2023 12:30 AM EDT Radha Hollins MD POINT OF CARE TEST ORDERABLES Performing Organization Address City/State/[facility] Co de Phone Number [facility] [place] [address] * XR Chest One View (05/11/2023 11:45 [...] questions please contact the health pet care assistant that requested your imaging first. ? Electronically signed by: Will Rowe MD, [facility] ([phone]), at 05/11/2023 11:57 PM Narrative 05/11/2023 11:57 [...] have questions please contactthe health pet care assistant that requested your imaging first. Radha Hollins MD IMG DX ORDERABLES * (ABNORMAL) Lactate, whole blood, send to lab ([facility]) (05/11/2023 7:40 PM EDT) Lactate WB 4.8(Critic al) 0.5 - 2.2 mmol/L [facility] Comment:Called by: IMM, Read back by: Magdalena Baires, Date/Time:05/11/23 19:54. Blood 05/11/2023 7:40 PM EDT 05/11/2023 7:49 PM EDT Narrative Resulting Agency Comment Spec In Lab Radha Hollins MD CHEMISTRY ORDERABL ES Performing Organization Address City/[facility]/ZIP Co de Phone Number [facility] [place] [address] * Urine culture (05/11/2023 7:22 PM EDT) [facility] Urine Culture 50,000-99,000 cfu/ml Normal mucosal herman Susceptibilit y testing not routinely performed for Coagulase Negative Staphylococcu s species and other Gram Positive organisms from urine. [facility] Clean Catch Urine 05/11/2023 7:22 PM EDT 05/11/2023 8:50 PM EDT Narrative Resulting Agency Comment Spec In Lab Brody Kaplan APRN MICROBIOLOGY - GENE [place] [address] * (ABNORMAL) Urinalysis Microscopic Exam (05/11/2023 7:22 PM EDT) RBC, Urine 2 0 - 4 /HPF [facility] WBC, Urine >100(H) 0 - 5 /HPF [facility] Bacteria, Urine Occasional (A) None /HPF [facility] Squamous Epithelial Cells Raw Data, Urine 5(H) <=4 /HPF [facility] Hyaline Casts, Urine 3(H) 0 - 2 /LPF [facility] Clean Catch Urine 05/11/2023 7:22 PM EDT 05/11/2023 7:31 PM EDT Narrative Resulting Agency Comment Spec In Lab Brody Kaplan LEARNING PROGRAM MANAGER URINE ORDERABLES Performing Organization Address [facility] de Phone Number [facility] [place] [address] * (ABNORMAL) Urinalysis with reflex Culture (05/11/2023 7:22 PM EDT) Glucose, Urine Dipstick Negative Negative mg/dL [facility] Protein, Urine Dipstick Trace(A) Negative mg/dL [facility] Bilirubin, Urine Dipstick Negative Negative mg/dL [facility] Comment: Clinical correlation required for positive Urine Bilirubin results as false positive may occur with some drugs and drug related products. If a false positive is suspected a serum total bilirubin should be considered if clinically indicated. Urobilinogen, Urine Dipstick Normal Normal mg/dL [facility] pH, Urn (dipstick) 5.0 5.0 - 8.0 [facility] Blood, Urine Dipstick Trace(A) Negative mg/dL [facility] Ketone, Urine Dipstick Negative Negative mg/dL [facility] Nitrite, Urine Dipstick Negative Negative [facility] Leukocytes, Urine Dipstick Moderate(A) Negative mcL [facility] Appearance, Urine Dipstick Cloudy(A) Clear [facility] Specific [place] Urine Automated >=1.030(A) 1.005 - 1.030 [facility] Color, Urine Dipstick Yellow Yellow [facility] Reflex to Culture Yes [facility] Clean Catch Urine 05/11/2023 7:22 PM EDT 05/11/2023 7:31 PM EDT Narrative Resulting Agency Comment Spec In Lab Brody Kaplan LEARNING PROGRAM MANAGER URINE ORDERABLES Performing Organization Address City/[facility] Co de Phone Number [facility] [place] [address] * (ABNORMAL) pro-Brain Natriuretic Peptide (05/11/2023 7:11 PM EDT) NT-proBNP >35,000(H) <=124 pg/mL [facility] Blood 05/11/2023 7:11 PM EDT 05/11/2023 7:26 PM EDT Narrative Resulting Agency Comment Spec In Lab Radha Hollins MD CHEMISTRY ORDERABL ES Performing Organization Address City/[facility]/ZIP Co de Phone Number [facility] [place] [address] * (ABNORMAL) Lactate, whole blood, send to lab ([facility] [place] [place]) (05/11/2023 2:47 PM EDT) Lactate WB 2.9(H) 0.5 - 2.2 mmol/L [facility] Blood 05/11/2023 2:47 PM EDT 05/11/2023 2:53 PM EDT Narrative Resulting Agency Comment Spec In Lab Juan Luis Gonzalez MD CHEMISTRY ORDERABLES Performing Organization Address [facility] [facility] [place] [address] * (ABNORMAL) CT Angiogram Abdomen & Pelvis [...] questions please contact the health pet care assistant that requested your imaging first. ? Electronically signed by: Eileen Gomes MD, [facility] ([phone]), at 05/11/2023 2:42 PM Narrative 05/11/2023 2:42 [...] questions please contact the health pet care assistant that requested your imaging first. ? Electronically signed by: Cullen Narayanan MD, [facility] ([phone]), at 05/11/2023 4:37 PM Narrative 05/11/2023 4:37 [...] 610 mm2 Circumference: 88 mm Calcification: Mild Zqaujde-[id number] height: Left: 6.2 mm Right: 5.8 mm THORACIC AORTA Description: Normal course and caliber. ??Mild diffuse atherosclerotic changes. No acute aortopathy noted. City Distribution Clerk dimensions: Aortic root: 27.6 mm Max ascending [...] 610 mm2 Circumference: 88 mm Calcification: Mild Prkbhcg-ia-[id number] height: Left: 6.2 mm Right: 5.8 mm THORACIC AORTA Description: Normal course and caliber. Mild diffuse atheroscleroticchanges. No acute aortopathy noted. City Distribution Clerk dimensions: Aortic root: 27.6 mm Max ascending [...] have questions please contactthe health pet care assistant that requested your imaging first. Electronically signed by: Cullen Narayanan MD, [facility]([phone]), at 05/11/2023 4:37 PM Antelmo Sharma MD IMG CT ORDERABLES * (ABNORMAL) Lactate, whole blood, send to lab ([facility] [place] (05/11/2023 9:29 AM EDT) Pathologist [facility] Lactate WB 3.1(H) 0.5 - 2.2 mmol/L [facility] Blood 05/11/2023 9:29 AM EDT 05/11/2023 9:38 AM EDT Narrative Resulting Agency Comment Spec In Lab Juan Luis Gonzalez MD CHEMISTRY ORDERABLES [facility] [place] [place] [address] * (ABNORMAL) Differential, Automated (05/11/2023 4:42 AM EDT) Pathologist [facility] Neutrophil % 78.1 % [facility] Neutrophil Absolute 5.46 1.70 - 6.10 x10(3)/mc L [facility] Lymph % 10.6 % [facility] Lymphocytes Abs 0.7(L) 0.9 - 3.2 x10(3)/ L [facility] Monocyte % 9.6 % [facility] Monocyte Abs 0.7 0.3 - 0.9 x10(3)/[facility] Eos % 0.0 % [facility] Eosinophils Abs 0.0 0.0 - 0.4 x10(3)/[facility] Basophil % 0.4 % [facility] Baso Absolute 0.0 0.0 - 0.1 x10(3)/[facility] Immature Gran % 1.30 % [facility] Comment: Immature granulocytes(IG's)percentage and absolute count will include metamyelocytes, myelocytes, and promyelocytes. Blood smears from CBCs yielding IG's will be scanned manually for concordance. If this scan disagrees with the automated IG or if promyelocytes are noted, a manual differential will be performed. Immature Gran Absolute 0.09(H) 0.00 - 0.04 x10(3)/ L [facility] Blood 05/11/2023 4:42 AM EDT 05/11/2023 4:49 AM EDT Narrative Resulting Agency Comment Spec In Lab Klaudia Reid MD HEMATOLOGY OR DERABLES Performing Organization Address City/State/[facility] Co de Phone Number [facility] [place] [address] * (ABNORMAL) Hemogram (05/11/2023 4:42 AM EDT) White Blood Cell 7.0 4.0 - 9.5 x10(3)/[facility] Red Blood Cell 3.44(L) 4.00 - 5.21 x10(6)/[facility] Hemoglobin 11.1(L) 11.7 - 15.5 g/dL [facility] Hematocrit 32.7(L) 35.7 - 45.8 % [facility] Mean Cell Volume 95.1(H) 82.6 - 94.4 fL [facility] Mean Cell Hemoglobin 32.3(H) 27.1 - 32.0 pg [facility] Mean Cell Hemoglobin Concentration 33.9 31.7 - 35.0 g/dL [facility] Platelet 165 145 - 357 x10(3)/mc L [facility] RDW Standard Deviation 43.1 37.0 - 46.0 fL [facility] RDW coefficient of variation 12.7 11.5 - 14.1 % [facility] Mean Platelet Volume 10.1 7.6 - 12.9 fL [facility] NRBC% auto 0.0 % [facility] NRBC Absolute 0.000 0.000 - 0.000 x10(3)/mc L [facility] Blood 05/11/2023 4:42 AM EDT 05/11/2023 4:49 AM EDT Narrative Resulting Agency Comment Spec In Lab Klaudia Reid MD HEMATOLOGY OR DERABLES Performing Organization Address City/[facility] de Phone Number [facility] [place] [address] * Heparin (unfractionated) Level (05/11/2023 4:42 AM EDT) UF Heparin 0.46 IU/mL [facility] Comment: Heparin (anti-Xa) levels should [...] Lab Radha Hollins MD HEMATOLOGY ORDERAB LES [facility] [place] [address] * (ABNORMAL) Comprehensive metabolic panel (non-fasting) (05/11/2023 4:42 AM EDT) Glucose 143 65 - 199 mg/dL [facility] Comment:Diabetes: >=200 mg/d L plus symptoms Blood Urea Nitrogen 42(H) 8 - 18 mg/dL [facility] Creatinine 1.24(H) 0.70 - 1.20 mg/dL [facility] Sodium 134(L) 135 - 145 mmol/L [facility] Potassium 4.6 3.5 - 5.0 mmol/L [facility] Comment: Please note: ??Patients with WBC >100,000 may have falsely elevated Potassium levels. ??For accurate Potassium quantification in these patients send serum separator tube (gold top) for subsequent determinations. ??Contact the Clinical Chemistry Laboratory if there are any questions. Chloride 99 98 - 107 mmol/L [facility] Carbon Dioxide 14(L) 22 - 31 mmol/L [facility] Anion Gap 21(H) 5 - 15 mmol/L [facility] Calcium 9.6 8.5 - 10.5 mg/dL [facility] Protein, Total 7.2 6.1 - 8.0 g/dL [facility] Albumin 3.7 3.2 - 5.2 g/dL [facility] Aspartate Aminotransferase 144(H) 0 - 30 unit/L [facility] Comment:result rechecked-ssc Alanine Aminotransferase 130(H) 0 - 30 unit/L [facility] Comment:result rechecked-ssc Alkaline Phosphatase 72 35 - 105 unit/L [facility] Bilirubin, Total 0.8 0.2 - 1.3 mg/dL [facility] Est Glomerular Filtration Rate 48(L) >=60 mL/min/1. 73 m?? [facility] Comment: This patient's estimated GFR [...] MD CHEMISTRY ORDERABL ES Performing Organization Address City/[facility]/ZIP Co de Phone Number [facility] [place] [address] * EKG 12 Lead (05/10/2023 1:16 PM EDT) Ventricular rate 118 BPM MUSE SYSTEM Atrial Rate 118 BPM MUSE SYSTEM P-R Interval 152 ms MUSE SYSTEM QRS Duration 104 ms MUSE SYSTEM Q-T Interval 316 ms MUSE SYSTEM QTC Calculated (Bezet) 442 ms MUSE SYSTEM Calculated P Rush 29 degrees MUSE SYSTEM Calculated R Rush 18 degrees MUSE SYSTEM Calculated T Rush -173 degrees MUSE SYSTEM INTERPRETATION Sinus tachycardia [...] Anterior leads Confirmed by MD Villareal Danette ([id number]) on 05/10/2023 8:47:46 PM MUSE SYSTEM 05/10/2023 1:16 PM EDT 05/10/2023 8:47 PM EDT Juan Luis Gonzalez MD ECG ORDERABLES Performing Organization Address City/[facility]/ZIP Co de Phone Number MUSE SYSTEM * Lactate, whole blood, send to lab ([facility] [place] [facility]) (05/10/2023 11:52 AM EDT) Lactate WB 1.8 0.5 - 2.2 mmol/L [facility] Blood 05/10/2023 11:5 2 AM EDT 05/10/2023 12:13 PM EDT Narrative Resulting Agency Comment Spec In Lab Juan Luis Gonzalez MD CHEMISTRY ORDERABLES [facility] [place] [address] * XR Chest One View (05/10/2023 11:16 [...] questions please contact the health pet care assistant that requested your imaging first. ? Electronically signed by: ALIX RUVALCABA MD, [facility] ([phone]), at 05/10/2023 1:25 PM Narrative 05/10/2023 1:25 [...] have questions please contactthe health pet care assistant that requested your imaging first. Electronically signed by: ALIX RUVALCABA MD, [facility]([phone]), at 05/10/2023 1:25 PM Juan Luis Gonzalez MD IMG DX ORDERABLES * EKG 12 Lead (05/10/2023 7:59 AM EDT) Ventricular rate 115 BPM MUSE SYSTEM Atrial Rate 115 BPM MUSE SYSTEM P-R Interval 142 ms MUSE SYSTEM QRS Duration 102 ms MUSE SYSTEM Q-T Interval 322 ms MUSE SYSTEM QTC Calculated (Bezet) 445 ms MUSE SYSTEM Calculated P Rush 36 degrees MUSE SYSTEM Calculated R Rush 28 degrees MUSE SYSTEM Calculated T Rush -119 degrees MUSE SYSTEM INTERPRETATION Sinus tachycardia with frequent Premature ventricular complexes and Fusion complexes ST & T wave abnormality, consider lateral ischemia Abnormal ECG When compared with ECG of 08-MAY-2023 15:51, No significant change was found I personally reviewed the tracing and edited the fellows interpretation Confirmed by fellow MD Welsh Hanyuan ([id number]) on 05/11/2023 6:19:54 AM Confirmed by MD Ugalde Hannah ([id number]) on 05/11/2023 3:18:56 PM MUSE SYSTEM 05/10/2023 7:59 AM EDT 05/11/2023 3:18 PM EDT Radha Hollins MD ECG ORDERABLES MUSE SYSTEM * (ABNORMAL) Differential, Automated (05/10/2023 2:28 AM EDT) Neutrophil % 77.1 % [facility] Neutrophil Absolute 4.01 1.70 - 6.10 x10(3)/mc L [facility] Lymph % 14.0 % [facility] Lymphocytes Abs 0.7(L) 0.9 - 3.2 x10(3)/mc L [facility] Monocyte % 7.7 % [facility] Monocyte Abs 0.4 0.3 - 0.9 x10(3)/ L [facility] Eos % 0.4 % [facility] Eosinophils Abs 0.0 0.0 - 0.4 x10(3)/[facility] Basophil % 0.4 % [facility] Baso Absolute 0.0 0.0 - 0.1 x10(3)/ L [facility] Immature Gran % 0.40 % [facility] Comment: Immature granulocytes(IG's)percentage and absolute count will include metamyelocytes, myelocytes, and promyelocytes. Blood smears from CBCs yielding IG's will be scanned manually for concordance. If this scan disagrees with the automated IG or if promyelocytes are noted, a manual differential will be performed. Immature Gran Absolute 0.02 0.00 - 0.04 x10(3)/ L [facility] Blood 05/10/2023 2:28 AM EDT 05/10/2023 2:57 AM EDT Narrative Resulting Agency Comment Spec In Lab Klaudia Reid MD HEMATOLOGY OR DERABLES [facility] [place] [address] * (ABNORMAL) Hemogram (05/10/2023 2:28 AM EDT) White Blood Cell 5.2 4.0 - 9.5 x10(3)/mc L [facility] Red Blood Cell 3.11(L) 4.00 - 5.21 x10(6)/mc L [facility] Hemoglobin 10.2(L) 11.7 - 15.5 g/dL [facility] Hematocrit 30.2(L) 35.7 - 45.8 % [facility] Mean Cell Volume 97.1(H) 82.6 - 94.4 fL [facility] Mean Cell Hemoglobin 32.8(H) 27.1 - 32.0 pg [facility] Mean Cell Hemoglobin Concentration 33.8 31.7 - 35.0 g/dL [facility] Platelet 151 145 - 357 x10(3)/mc L [facility] RDW Standard Deviation 44.9 37.0 - 46.0 fL [facility] RDW coefficient of variation 12.8 11.5 - 14.1 % [facility] Mean Platelet Volume 9.8 7.6 - 12.9 fL [facility] NRBC% auto 0.0 % [facility] NRBC Absolute 0.000 0.000 - 0.000 x10(3)/mc L [facility] Blood 05/10/2023 2:28 AM EDT 05/10/2023 2:57 AM EDT Narrative Resulting Agency Comment Spec In Lab Klaudia Reid MD HEMATOLOGY OR DERABLES Performing Organization Address City/State/[facility] Co de Phone Number [facility] [place] [address] * (ABNORMAL) Comprehensive metabolic panel (non-fasting) (05/10/2023 2:28 AM EDT) Glucose 100 65 - 199 mg/dL [facility] Comment:Diabetes: >=200 mg/d L plus symptoms Blood Urea Nitrogen 30(H) 8 - 18 mg/dL [facility] Creatinine 0.90 0.70 - 1.20 mg/dL [facility] Sodium 134(L) 135 - 145 mmol/L [facility] Potassium 4.1 3.5 - 5.0 mmol/L [facility] Comment: Please note: ??Patients with WBC >100,000 may have falsely elevated Potassium levels. ??For accurate Potassium quantification in these patients send serum separator tube (gold top) for subsequent determinations. ??Contact the Clinical Chemistry Laboratory if there are any questions. Chloride 102 98 - 107 mmol/L [facility] Carbon Dioxide 20(L) 22 - 31 mmol/L [facility] Anion Gap 12 5 - 15 mmol/L [facility] Calcium 9.3 8.5 - 10.5 mg/dL [facility] Protein, Total 6.4 6.1 - 8.0 g/dL [facility] Albumin 3.7 3.2 - 5.2 g/dL [facility] Aspartate Aminotransferase 24 0 - 30 unit/L [facility] Alanine Aminotransferase 14 0 - 30 unit/L [facility] Alkaline Phosphatase 70 35 - 105 unit/L [facility] Bilirubin, Total 0.5 0.2 - 1.3 mg/dL [facility] Est Glomerular Filtration Rate 70 >=60 mL/min/1. 73 m?? [facility] Comment: This patient's estimated GFR [...] Lab Radha Hollins MD CHEMISTRY ORDERABL ES [facility] [place] [address] * Heparin (unfractionated) Level (05/10/2023 2:28 AM EDT) UF Heparin 0.37 IU/mL [facility] ITAL [...] Lab Radha Hollins MD HEMATOLOGY ORDERAB LES [facility] [place] [place] [address] * (ABNORMAL) Differential, Automated (05/09/2023 4:00 AM EDT) Neutrophil % 81.7 % [facility] Neutrophil Absolute 5.26 1.70 - 6.10 x10(3)/mc L [facility] Lymph % 10.7 % [facility] Lymphocytes Abs 0.7(L) 0.9 - 3.2 x10(3)/mc L [facility] Monocyte % 6.5 % [facility] Monocyte Abs 0.4 0.3 - 0.9 x10(3)/mc L [facility] Eos % 0.5 % [facility] Eosinophils Abs 0.0 0.0 - 0.4 x10(3)/mc L [facility] Basophil % 0.3 % [facility] Baso Absolute 0.0 0.0 - 0.1 x10(3)/mc L [facility] Immature Gran % 0.30 % [facility] Comment: Immature granulocytes(IG's)percentage and absolute count will include metamyelocytes, myelocytes, and promyelocytes. Blood smears from CBCs yielding IG's will be scanned manually for concordance. If this scan disagrees with the automated IG or if promyelocytes are noted, a manual differential will be performed. Immature Gran Absolute 0.02 0.00 - 0.04 x10(3)/mc L [facility] Blood 05/09/2023 4:00 AM EDT 05/09/2023 4:19 AM EDT Narrative Resulting Agency Comment Spec In Lab Klaudia Reid MD HEMATOLOGY OR DERABLES [facility] [place] [place] [address] * (ABNORMAL) Hemogram (05/09/2023 4:00 AM EDT) White Blood Cell 6.4 4.0 - 9.5 x10(3)/mc L [facility] Red Blood Cell 3.15(L) 4.00 - 5.21 x10(6)/mc L [facility] Hemoglobin 10.2(L) 11.7 - 15.5 g/dL [facility] Hematocrit 30.3(L) 35.7 - 45.8 % [facility] Mean Cell Volume 96.2(H) 82.6 - 94.4 fL [facility] Mean Cell Hemoglobin 32.4(H) 27.1 - 32.0 pg [facility] Mean Cell Hemoglobin Concentration 33.7 31.7 - 35.0 g/dL [facility] Platelet 151 145 - 357 x10(3)/mc L [facility] RDW Standard Deviation 44.7 37.0 - 46.0 fL [facility] RDW coefficient of variation 12.8 11.5 - 14.1 % [facility] Mean Platelet Volume 9.4 7.6 - 12.9 fL [facility] NRBC% auto 0.0 % [facility] NRBC Absolute 0.000 0.000 - 0.000 x10(3)/mc L [facility] Blood 05/09/2023 4:00 AM EDT 05/09/2023 4:19 AM EDT Narrative Resulting Agency Comment Spec In Lab Klaudia Reid MD HEMATOLOGY OR DERABLES Performing Organization Address City/[facility]/ZIP Co de Phone Number [facility] [place] [place] [address] * Heparin (unfractionated) Level (05/09/2023 4:00 AM EDT) UF Heparin 0.47 IU/mL [facility] ITAL [...] MD HEMATOLOGY ORDERAB LES Performing Organization Address City/State/[facility] Co de Phone Number [facility] [place] [address] * (ABNORMAL) Comprehensive metabolic panel (non-fasting) (05/09/2023 4:00 AM EDT) Glucose 108 65 - 199 mg/dL [facility] Comment:Diabetes: >=200 mg/d L plus symptoms Blood Urea Nitrogen 31(H) 8 - 18 mg/dL [facility] Creatinine 1.03 0.70 - 1.20 mg/dL [facility] Sodium 137 135 - 145 mmol/L [facility] Potassium 4.4 3.5 - 5.0 mmol/L [facility] Comment: Please note: ??Patients with WBC >100,000 may have falsely elevated Potassium levels. ??For accurate Potassium quantification in these patients send serum separator tube (gold top) for subsequent determinations. ??Contact the Clinical Chemistry Laboratory if there are any questions. Chloride 102 98 - 107 mmol/L [facility] Carbon Dioxide 20(L) 22 - 31 mmol/L [facility] Anion Gap 15 5 - 15 mmol/L [facility] Calcium 9.3 8.5 - 10.5 mg/dL [facility] Protein, Total 6.6 6.1 - 8.0 g/dL [facility] Albumin 3.8 3.2 - 5.2 g/dL [facility] Aspartate Aminotransferase 32(H) 0 - 30 unit/L [facility] Alanine Aminotransferase 18 0 - 30 unit/L [facility] Alkaline Phosphatase 78 35 - 105 unit/L [facility] Bilirubin, Total 0.5 0.2 - 1.3 mg/dL [facility] Est Glomerular Filtration Rate 60 >=60 mL/min/1. 73 m?? [facility] Comment: This patient's estimated GFR [...] CHEMISTRY ORDERABL ES Performing Organization Address [facility] Co de Phone Number [facility] [place] [place] [address] * (ABNORMAL) pro-Brain Natriuretic Peptide (05/08/2023 4:00 PM EDT) NT-proBNP 25,503(H) <=124 pg/mL [facility] Blood Venous Draw / Unknown 05/08/2023 4:00 PM EDT 05/08/2023 4:25 PM EDT Narrative Resulting Agency Comment Spec In Lab Juan Luis Gonzalez MD CHEMISTRY ORDERABLES Performing Organization Address City/[facility]/ZIP Co de Phone Number [facility] [place] [address] * Magnesium (05/08/2023 4:00 PM EDT) Magnesium 0.82 0.69 - 1.07 mmol/L [facility] Blood 05/08/2023 4:00 PM EDT 05/08/2023 4:06 PM EDT Narrative Resulting Agency Comment Spec In Lab Enrique Chua MD CHEMISTRY ORDERABLES Performing Organization Address [facility] Co de Phone Number [facility] [place] [place] [address] * Potassium (05/08/2023 4:00 PM EDT) Pathologist [facility] Potassium 3.9 3.5 - 5.0 mmol/L [facility] [...] ORDERABL ES Performing Organization Address [facility] de Phone Number [facility] [place] [place] [address] * Heparin (unfractionated) Level (05/08/2023 4:00 PM EDT) Pathologist [facility] UF Heparin 0.43 IU/mL [facility] Lab Radha Hollins MD HEMATOLOGY ORDERAB LES [facility] [place] [address] * EKG 12 Lead (05/08/2023 3:51 PM EDT) Pathologist [facility] Ventricular rate 98 BPM MUSE SYSTEM Atrial Rate 98 BPM MUSE SYSTEM P-R Interval 150 ms MUSE SYSTEM QRS Duration 102 ms MUSE SYSTEM Q-T Interval 358 ms MUSE SYSTEM QTC Calculated (Bezet) 457 ms MUSE SYSTEM Calculated P Rush 38 degrees MUSE SYSTEM Calculated R Rush 48 degrees MUSE SYSTEM Calculated T Rush -112 degrees MUSE SYSTEM INTERPRETATION Sinus rhythm with frequent and consecutive Premature ventricular and fusion complexes Septal infarct , age undetermined ST & T wave abnormality, consider anterolateral ischemia Abnormal ECG When compared with ECG of 09-NOV-2022 11:17, T wave inversion now evident in Anterolateral leads Confirmed by MD Harshil, Enrique Bell ([id number]) on 05/10/2023 8:11:46 AM MUSE SYSTEM 05/08/2023 3:51 PM EDT 05/10/2023 8:11 AM EDT Radha Hollins MD ECG ORDERABLES Performing Organization Address City/[facility]/ZIP Co de Phone Number MUSE SYSTEM * (ABNORMAL) Differential, Automated (05/08/2023 11:38 AM EDT) [facility] Neutrophil % 71.3 % [facility] Neutrophil Absolute 2.91 1.70 - 6.10 x10(3)/mc L [facility] Lymph % 19.1 % [facility] Lymphocytes Abs 0.8(L) 0.9 - 3.2 x10(3)/mc L [facility] Monocyte % 9.0 % [facility] Monocyte Abs 0.4 0.3 - 0.9 x10(3)/mc L [facility] Eos % 0.2 % [facility] Eosinophils Abs 0.0 0.0 - 0.4 x10(3)/mc L [facility] Basophil % 0.2 % [facility] Baso Absolute 0.0 0.0 - 0.1 x10(3)/mc L [facility] Immature Gran % 0.20 % [facility] Comment: Immature granulocytes(IG's)percentage and absolute count will include metamyelocytes, myelocytes, and promyelocytes. Blood smears from CBCs yielding IG's will be scanned manually for concordance. If this scan disagrees with the automated IG or if promyelocytes are noted, a manual differential will be performed. Immature Gran Absolute 0.01 0.00 - 0.04 x10(3)/ L [facility] Blood 05/08/2023 11:3 8 AM EDT 05/08/2023 11:44 AM EDT Narrative Resulting Agency Comment Spec In Lab Lincoln Sal MD HEMATOLOGY ORDERA BLES Performing Organization Address City/State/[facility] Co de Phone Number [facility] [place] [place] [address] * (ABNORMAL) Hemogram (05/08/2023 11:38 AM EDT) White Blood Cell 4.1 4.0 - 9.5 x10(3)/ L [facility] Red Blood Cell 3.05(L) 4.00 - 5.21 x10(6)/[facility] Hemoglobin 10.2(L) 11.7 - 15.5 g/dL [facility] Hematocrit 29.6(L) 35.7 - 45.8 % [facility] Mean Cell Volume 97.0(H) 82.6 - 94.4 fL [facility] Mean Cell Hemoglobin 33.4(H) 27.1 - 32.0 pg [facility] Mean Cell Hemoglobin Concentration 34.5 31.7 - 35.0 g/dL [facility] Platelet 136(L) 145 - 357 x10(3)/mc [facility] RDW Standard Deviation 44.3 37.0 - 46.0 fL [facility] RDW coefficient of variation 12.6 11.5 - 14.1 % [facility] Mean Platelet Volume 9.4 7.6 - 12.9 fL [facility] NRBC% auto 0.0 % [facility]AL [facility] NRBC Absolute 0.000 0.000 - 0.000 x10(3)/mc L [facility] Blood 05/08/2023 11:3 8 AM EDT 05/08/2023 11:44 AM EDT Narrative Resulting Agency Comment Spec In Lab Lincoln Sal MD HEMATOLOGY ORDERA BLES Performing Organization Address City/[facility]/ZIP Co de Phone Number [facility] [place] [address] * TSH (05/08/2023 11:38 AM EDT) Thyroid Stimulating Hormone 1.27 0.27 - 4.20 mcIU/mL [facility] Comment: Reference Interval (mcIU/mL): Females: ??First Trimester: 0.23-3.88 ??Second Trimester: 0.22-3.90 ??Third Trimester: 0.44-4.66 Blood 05/08/2023 11:3 8 AM EDT 05/08/2023 11:44 AM EDT Narrative Resulting Agency Comment Spec In Lab Enrique Chua MD CHEMISTRY ORDERABLES Performing Organization Address [facility] Co de Phone Number [facility] [place] [address] * (ABNORMAL) Phosphorus (05/08/2023 11:38 AM EDT) Phosphorus 4.7(H) 2.5 - 4.5 mg/dL [facility] Blood 05/08/2023 11:3 8 AM EDT 05/08/2023 11:44 AM EDT Narrative Resulting Agency Comment Spec In Lab Enrique Chua MD CHEMISTRY ORDERABLES Performing Organization Address [facility] Co de Phone Number [facility] [place] [address] * Magnesium (05/08/2023 11:38 AM EDT) Magnesium 0.76 0.69 - 1.07 mmol/L [facility] Blood 05/08/2023 11:3 8 AM EDT 05/08/2023 11:44 AM EDT Narrative Resulting Agency Comment Spec In Lab Enrique Chua MD CHEMISTRY ORDERABLES Performing Organization Address City/State/[facility] Co de Phone Number [facility] [place] [address] * (ABNORMAL) Basic Metabolic Panel (non-fasting) (05/08/2023 11:38 AM EDT) Glucose 97 65 - 199 mg/dL [facility] Comment:Diabetes: >=200 mg/d L plus symptoms Blood Urea Nitrogen 27(H) 8 - 18 mg/dL [facility] Creatinine 1.02 0.70 - 1.20 mg/dL [facility] Sodium 139 135 - 145 mmol/L [facility] Potassium 4.2 3.5 - 5.0 mmol/L [facility] Comment: Please note: ??Patients with WBC >100,000 may have falsely elevated Potassium levels. ??For accurate Potassium quantification in these patients send serum separator tube (gold top) for subsequent determinations. ??Contact the Clinical Chemistry Laboratory if there are any questions. Chloride 105 98 - 107 mmol/L [facility] Carbon Dioxide 20(L) 22 - 31 mmol/L [facility] Anion Gap 14 5 - 15 mmol/L [facility] Calcium 9.4 8.5 - 10.5 mg/dL [facility] Est Glomerular Filtration Rate 60 >=60 mL/min/1. 73 m?? [facility] Comment: This patient's estimated GFR [...] In Lab Enrique Chua MD CHEMISTRY ORDERABLES [facility] [place] [address] * ECHO COMPLETE (05/08/2023 11:02 AM EDT) EF 25 HEARTLAB SYSTEM Anatomical Region Laterality Modality Cardiac Other 05/08/2023 10:0 3 AM EDT Narrative 05/08/2023 11:51 AM EDT ? Echocardiogram Report Name: PURNIMA THACKER ?Study Date: 05/08/2023 10:03 AMBP: 92/64 mmHg ? Patient Location: [facility]^CV29^A : 1955 ? Height: 155 cm ? Account: [id number] Age: 67 yrs ? Weight: 78 kg Gender: Female ?BSA: 1.8 m2 Ordering Physician: ENRIQUE CHUA Referring Physician: MARIO ALBERTO CHIN Performed By: CHUCKIE Canchola Reason For Study: SAVR Stenosis Exam Location: [facility]. Interpretation Summary -Left ventricle is severely [...] worsening stenosis. Mitral regurgitation is similar. Procedure Complete-[id number]. Satisfactory quality. There is normal sinus rhythm. [...] 0:03 AMBP: 92/64 mmHg Patient Location:[facility]^CV29^A : 1955 Height: 155 cm Account: [id number] Age: 67 yrs Weight: 78 kg Gender: Female BSA: 1.8 m2 Ordering Physician: ENRIQUE CHUA Referring Physician: MARIO ALBERTO CHIN Performed By: CHUCKIE Canchola Reason For Study: SAVR Stenosis Exam Location: [facility]. Interpretation Summary -Left ventricle is severely [...] suggestsworsening stenosis. Mitral regurgitation is similar. Procedure Complete-[id number]. Satisfactory quality. There is normal sinus rhythm. [...] Lab Enrique Chua MD HEMATOLOGY ORDERABLE S [facility] [place] [address] documented in this encounter Visit Diagnoses Diagnosis [...] Calhoun RN)[id number] (Given - Provider: Gabino Calhoun, AVLDO) 0130 (Not Given - Provider: Favian Mckeon [...] Routine documented in this encounter Care Teams Immigration Specialist Relationship Specialty Start Date End Date Magdalena Acosta MD [address] [place] [address] PCP - General Family Medicine 02/05/23 documented as of this encounter
--- OUTSIDE RECORDS SUMMARY | 2024-06-08 14:12 | XMS_ITS | Encounter Summary ---
Author Organization [facility] [place] [address] Care Team Providers Care Residential Program Coordinator Name Role Phone Magdalena Acosta MD Primary Care Provider [phone] Encounter Details Date Type Department Care Team (Late st Contact Info) Description 05/08/2023 [place] [phone] Luis Felipe Ott MD [facility] [place] [address] Social History Tobacco Use Types Packs/Day Years [...] 0426 Referring Provider: Nitesh Baltazar Patient Location: [facility] Presenting Symptoms per OSH: 67 year old [...] diuresis with IV furosemide 20 x 1 ([id number] at rheumatology appointment), SpO2 85% on RA -> 95% on 2L NC, HR 120s. Examination significant for decreased breath sounds at the bases. Pertinent Diagnostic Findings: CBC - Hgb 10.5 CMP - Cr 1.1 BNP 58531 HsTrop 1358 Lactate 1.6 D-dimer 1183, CTPE pending CXR demonstrated pulmonary vascular congestion US showed bilateral b lines Bedside echo reportedly similar to prior TTE for LV function OSH Interventions: ASA 324 Heparin gtt Plan: Transfer [place] [facility] Above recommendations/plans are based on my conversation with the referring provider. I have not personally interviewed or examined this patient. Luis Felipe Ott MD Dryerman/Woman Received a call from provider emergently at 715am. Mentating well and BP 87/53. HR 108 and diursingwell. They were about to start phenylephrine which I stressed was not a good option given concern for severe and increasing afterload. She is warm on exam, mentating and urinating and we do not need to amrit a BP if those things remain stable. Nico Segura, PGY-6 Dryerman/Woman [id number] documented in this encounter Plan of Treatment Upcoming Encounters Date Type Department Care Team (Late st Contact Info) Description 06/23/2024 2:00 PM EST Office Visit Hematology [place] [address] Markel Borjas MD [facility] DR HEMATOLOGY [place] [address] 11/02/2024 12:00 PM EDT Appointment [place] [phone] 11/02/2024 1:00 PM EDT Office [place] [address] Magdalena Peralta MD [facility] DR RHEUMATOLOGY [place] [address] 03/01/2025 4:15 PM EDT Office Visit Dermatology at [place] [address] [place] [phone] Marek Bonilla MD [address] [facility] [place] [address] documented as of this encounter Visit Diagnoses Not on filedocumented in this encounter Care Teams Residential Program Coordinator Relationship Specialty Start Date End Date Magdalena Acosta MD [address] [place] [address] PCP - General Family Medicine 02/05/23 documented as of this encounter
--- OUTSIDE RECORDS SUMMARY | 2024-06-08 14:12 | XMS_ITS | Encounter Summary ---
Author Organization [facility] Erika [facility] [place] [address] Care Team Providers Care Microbiology Lab Assistant Name Role Phone Magdalena Acosta MD Primary Care Provider [phone] Encounter Details Date Type Department Care Team [...] Visit Hematology and Oncology at [place] [phone] Markel Borjas MD [facility] DR HEMATOLOGY [place] [address] 11/02/2024 12:00 PM EDT Appointment [place] [address] 11/02/2024 1:00 PM EDT Office [place] [address] Magdalena Peralta MD [facility] [place] [address] 03/01/2025 4:15 PM EDT Office Visit Dermatology at [place] [address] [place] [phone] Marek Bonilla MD [address] [place] [address] documented as of this encounter Visit Diagnoses Not on filedocumented in this encounter Care Teams Microbiology Lab Assistant Relationship Specialty Start Date End Date Magdalena Acosta MD [address] [place] [address] PCP - General Family Medicine 02/05/23 documented as of this encounter
--- OUTSIDE RECORDS SUMMARY | 2024-06-08 14:13 | XMS_ITS | Encounter Summary ---
Author Organization [facility] Address [facility] [place] [address] Care Team Providers Care Well Testing Operator Name Role Phone Junaid Deborah Shields APRN Primary Care Provider [phone] Reason for Referral * Consultation (Routine) - Closed Specialty Diagnoses / Procedures Referred By Contac t Referred To Contact Neurology Diagnoses Neck pain Popeye Rogers MD [facility] [place] [address] Kyra Haas MD [facility] [address] [address] Referral ID Status Reason Start Date Expiration Date V isits Requested Visits Authorized [id number] Closed Consult, Test & Treat 06/29/2022 06/29/2023 1 1 Reason for Visit * Reason Comments Neck Pain Weak in both arms, p ain and tingling in arms and hands Encounter Details Date Type Department Care Team (Late st Contact Info) Description 06/29/2022 10:20 AM EST Office Visit [facility] [place] [address] Popeye Rogers MD [facility] [place] [address] Neck pain Social History Tobacco Use Types [...] have EMG and nerve conduction studies in [place] that showed carpal tunnel syndrome. I do not have a copy of that report. documented in this encounter Plan of Treatment Upcoming Encounters Date Type Department Care Team (Late st Contact Info) Description 06/23/2024 2:00 PM EST Office Visit Hematology and Oncology at [place] [phone] Markel Borjas MD [facility] [address] [place] [address] 11/02/2024 12:00 PM EDT Appointment Pulmonology at [place] [address] 11/02/2024 1:00 PM EDT Office Visit Rheumatology at [place] [phone] Magdalena Peralta MD [facility] [place] [address] 03/01/2025 4:15 PM EDT Office Visit Dermatology at [place] [address] [facility] [place] [phone] Marek Bonilla MD [address] [facility] [place] [address] Scheduled Referrals Name Type Priority Associated Diagnoses Orde r Schedule Referral to Neurology Outpatient Referral Routine Neck pain Ordered: 06/29/2022 documented as of this encounter Visit Diagnoses Diagnosis Neck pain Cervicalgia documented in this encounter Care Teams Well Testing Operator Relationship Specialty Start Date End Date Deborah Quiroga, PROJECT CONTROL ANALYST PCP - General Family Medicine 03/24/16 02/04/23 documented as of this encounter
--- OUTSIDE RECORDS SUMMARY | 2024-06-08 14:13 | XMS_ITS | Encounter Summary ---
Author Organization [facility] [place] [address] Care Team Providers Care Route Agent Name Role Phone Deborah Quiroga APRN Primary Care Provider Encounter Details Date Type Department Care Team (Late st Contact Info) Description 06/17/2022 Ancillary Procedure Radiology Library at [facility] [place] [address] Deborah Quiroga APRN [address] [place] [phone] Social History Tobacco Use Types Packs/Day [...] Office Visit Hematology [place] [phone] Markel Borjas MD [facility] HEMATOLOGY [place] [address] 11/02/2024 12:00 PM EDT Appointment [place] [phone] 11/02/2024 1:00 PM EDT Office [place] [address] Magdalena Peralta MD [facility] [place] [address] 03/01/2025 4:15 PM EDT Office Visit Dermatology at [place] [address] [facility] [place] [phone] Marek Bonilla MD [address], [place] [address] documented as of this encounter Procedures Procedure Name Priority Date/Time Associated Diagnosis Comments FILM LIBRARY STORAGE ONLY MR SPINE Routine 06/17/2022 12:00 AM EST documented in this encounter Results * Film Library- Storage Only MR Spine (06/17/2022 12:00 AM EST) Narrative [facility] - 06/18/2022 11:00 AM EST This exam is auto-finalizing. It's purpose is for storage only. Deborah Quiroga APRN IMGerman FILM LIBRARY OR DERABLES Performing Organization Address City/State/[facility] Co de Phone Number [place], [place] documented in this encounter Visit Diagnoses Not on filedocumented in this encounter Care Teams Route Agent Relationship Specialty Start Date End Date Deborah Quiroga APRN PCP - General Family Medicine 03/24/16 02/04/23 documented as of this encounter
--- OUTSIDE RECORDS SUMMARY | 2024-06-08 14:13 | XMS_ITS | Encounter Summary ---
Author Organization [facility]rika [facility] [place] [address] Care Team Providers Care Beading Installer Name Role Phone Magdalena Acosta MD Primary Care Provider [phone] Encounter Details Date Type Department Care Team [...] EST Office Visit Hematology and Oncology at [place] [phone] Markel Borjas MD [facility] [address] [place] [address] 11/02/2024 12:00 PM EDT Appointment [place] [address] 11/02/2024 1:00 PM EDT Office Visit Rheumatology at [place] [phone] Magdalena Peralta MD [facility] [place] [address] 03/01/2025 4:15 PM EDT Office Visit Dermatology at [place] [address] [place] [phone] Marek Bonilla MD [address] [place] [address] documented as of this encounter Visit Diagnoses Not on filedocumented in this encounter Care Teams Beading Installer Relationship Specialty Start Date End Date Magdalena Acosta MD [address] [place] [address] PCP - General Family Medicine 02/05/23 documented as of this encounter
--- OUTSIDE RECORDS SUMMARY | 2024-06-08 14:13 | XMS_ITS | Encounter Summary ---
Author Organization [facility]rika [facility] [place] [address] Care Team Providers Care Contract Writer Name Role Phone Ashley Quirogazac Shields APRN Primary Care Provider [phone] Encounter Details Date Type Department Care Team [...] EST Office Visit Hematology and Oncology at [place] [phone] Markel Borjas MD [facility] [address] [place] [address] 11/02/2024 12:00 PM EDT Appointment [place] [address] 11/02/2024 1:00 PM EDT Office [place] [address] Magdalena Peralta MD [facility] [place] [address] 03/01/2025 4:15 PM EDT Office Visit Dermatology at [place] [address] [place] [phone] Marek Bonilla MD [address] [place] [address] documented as of this encounter Visit Diagnoses Not on filedocumented in this encounter Care Teams Contract Writer Relationship Specialty Start Date End Date Deborah Quiroga APRN PCP - General Family Medicine 03/24/16 02/04/23 documented as of this encounter
--- OUTSIDE RECORDS SUMMARY | 2024-06-08 14:13 | XMS_ITS | Encounter Summary ---
Author Organization [facility] [place] [address] Care Team Providers Care Supervisor Mill Name Role Phone Deborah Quiroga APRN Primary Care Provider [phone] Encounter Details Date Type Department Care Team (Latest Contact Info) Description 07/03/2022 12:28 PM EST - 07/03/2022 1:35 PM EST Hospital Encounter Hematology [place] [address] Chronic idiopathic neutropenia Discharge Disposition: Home Social [...] EST Office Visit Hematology [place] [phone] Markel Borjas MD [facility] DR [place] [address] 11/02/2024 12:00 PM EDT Appointment [place] [phone] 11/02/2024 1:00 PM EDT Office [place] [phone] Magdalena Peralta MD [facility] [place] [address] 03/01/2025 4:15 PM EDT Office Visit Dermatology at [place] [address] [facility] [place] [phone] Marek Bonilla MD [address] [place] [address] RD, [place] [address] documented as of this encounter Procedures Procedure [...] 12:40 PM EST) Neutrophil % 72.9 % [facility] Neutrophil Absolute 2.61 1.70 - 6.10 x10(3)/mc L [facility] Lymph % 18.4 % [facility] Lymphocytes Abs 0.7(L) 0.9 - 3.2 x10(3)/mc L [facility] Monocyte % 8.4 % [facility] Monocyte Abs 0.3 0.3 - 0.9 x10(3)/mc L [facility] Eos % 0.0 % [facility] [...] HEMATOLOGY ORDERAB LES [facility] [place] [address] * (ABNORMAL) Hemogram (07/03/2022 12:40 PM EST) White Blood Cell 3.6(L) 4.0 - 9.5 x10(3)/[facility] Red Blood Cell 3.61(L) 4.00 - 5.21 x10(6)/[facility] Hemoglobin 11.7 11.7 - 15.5 g/dL [facility] Hematocrit 34.5(L) 35.7 - 45.8 % [facility] Mean Cell Volume 95.6(H) 82.6 - 94.4 fL [facility] Mean Cell Hemoglobin 32.4(H) 27.1 - 32.0 pg [facility] Mean Cell Hemoglobin Concentration 33.9 31.7 - 35.0 g/dL [facility] Platelet 171 145 - 357 x10(3)/[facility] RDW Standard Deviation 40.5 37.0 - 46.0 [facility] RDW coefficient of variation 11.5 11.5 - 14.1 % [facility] Mean Platelet Volume 9.2 7.6 - 12.9 fL [facility] NRBC% auto 0.0 % [facility] NRBC Absolute 0.000 0.000 - 0.000 x10(3)/ L [facility] Blood 07/03/2022 12:4 0 PM EST 07/03/2022 1:03 PM EST Narrative Resulting Agency Comment Spec In Lab Markel Borjas MD HEMATOLOGY ORDERAB LES [facility] [place] [address] * (ABNORMAL) Comprehensive metabolic panel (non-fasting) (07/03/2022 [...] CHEMISTRY ORDERABL ES [facility] [place] [phone] documented in this encounter Visit Diagnoses Diagnosis Chronic idiopathic neutropenia Other neutropenia documented in this encounter Care Teams Supervisor Mill Relationship Specialty Start Date End Date Deborah Quiroga APRN PCP - General Family Medicine 03/24/16 02/04/23 documented as of this encounter
--- OUTSIDE RECORDS SUMMARY | 2024-06-08 14:13 | XMS_ITS | Encounter Summary ---
Author Organization [facility] Address [facility] [place] [address] Care Team Providers Care Dry Mill Worker Name Role Phone Magdalena Acosta MD Primary Care Provider [phone] Encounter Details Date Type Department Care Team (Late st Contact Info) Description 04/27/2023 3:00 PM EDT Office [place] [address] Magdalena Peralta MD [facility] [place] [address] Mixed connective tissue disease Social History Tobacco [...] 1:5120 speckled; VIC negative; Myositis panel with PROCESS CHEESE COOKER ab 149.1 (positive); Anti U1RNP IgG 119; [...] EST Office Visit Hematology [place] [address] Markel Borjas MD [facility] DR HEMATOLOGY [place] [address] 11/02/2024 12:00 PM EDT Appoint[place] [address] 11/02/2024 1:00 PM EDT Office [place] [address] Magdalena Peralta MD [facility] [place] [address] 03/01/2025 4:15 PM EDT Office Visit Dermatology at [place] [address] [place] [address] Marek Bonilla MD [address] [place] [address] documented as of this encounter Visit Diagnoses Diagnosis Mixed connective tissue disease Other specified diffuse disease of connective tissue documented in this encounter Care Teams Dry Mill Worker Relationship Specialty Start Date End Date Magdalena Acosta MD [address] [place] [address] PCP - General Family Medicine 02/05/23 documented as of this encounter
--- OUTSIDE RECORDS SUMMARY | 2024-06-08 14:13 | XMS_ITS | Encounter Summary ---
Author Organization [facility] Address [facility] [place] [address] Care Team Providers Care Sprigger Name Role Phone Deborah Quiroga APRN Primary Care Provider [phone] Reason for Visit * Reason Comments Follow-up Encounter Details Date Type Department Care Team (Late st Contact Info) Description 07/03/2022 1:30 PM EST Office Visit Hematology [place] [address] Markel Borjas MD [facility] [address] [place] [address] Consuelo Sommer APRN [facility] [address] [place] [address] Chronic idiopathic neutropenia; Dysuria Social History Tobacco [...] 1:30 PM EST Hematology Outpatient Clinic [facility] Hematology Outpatient Consult Note CC: 60 [...] TOUCH PREP, CLOT SECTION, CORE ??BIOPSY); [OSR# [id number], COLLECTED 06/23/2016, 19 SLIDES]: ?1. 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 Extremities: No edema. Labs: Hgb= 11.7 Ioix=215 ANC= 2.5 Imaging As above - reviewed [...] EST Office Visit Hematology [place] [address] Markel Borjas MD [facility] [address] [place] [address] 11/02/2024 12:00 PM EDT Appointment [place] [address] 11/02/2024 1:00 PM EDT Office [place] [address] Magdalena Peralta MD [facility] [place] [address] 03/01/2025 4:15 PM EDT Office Visit Dermatology at [address] [place] [address] Marek Bonilla MD [address] [facility], [place] [address] documented as of this encounter Procedures Procedure [...] Borjas MD MICROBIOLOGY - GEN ERAL ORDERABLES [facility] [place] [address] * (ABNORMAL) Urinalysis Microscopic Exam (07/03/2022 2:00 [...] MD URINE ORDERABLES Performing Organization Address City/[facility]/ZIP Co de Phone Number [facility] [place] [address] * (ABNORMAL) Urinalysis with reflex Culture (07/03/2022 [...] CENTER LABORATORY Leukocytes, Urine Dipstick Small(A) Negative [facility] LABORATORY Appearance, Urine Dipstick Clear Clear [facility] Specific [place] Urine Automated 1.022 1.005 - 1.030 [facility] Color, Urine Dipstick Yellow Yellow [facility] Reflex to Culture Yes [facility] Clean Catch Urine 07/03/2022 2:00 PM EST 07/03/2022 2:29 PM EST Narrative Resulting Agency Comment Spec In Lab Markel Borjas MD URINE ORDERABLES Performing Organization Address City/[facility]/ZIP Co de Phone Number [facility] [place] [address] * (ABNORMAL) Comprehensive metabolic panel (non-fasting) (07/03/2022 [...] Address City/State/[facility] Co de Phone Number [facility] [place] [phone] documented in this encounter Visit Diagnoses Diagnosis Chronic idiopathic neutropenia Other neutropenia Dysuria documented in this encounter Care Teams Sprigger Relationship Specialty Start Date End Date Deborah Quiroga APRN PCP - General Family Medicine 03/24/16 02/04/23 documented as of this encounter
--- OUTSIDE RECORDS SUMMARY | 2024-06-08 14:13 | XMS_ITS | Encounter Summary ---
Author Organization [facility] [place] [address] Care Team Providers Care Technical Clerk Name Role Phone Magdalena Acosta MD Primary Care Provider [phone] Encounter Details Date Type Department Care Team (Latest Contact Info) Description 02/05/2023 9:33 PM EDT - 02/05/2023 11:59 PM EDT Hospital [place] [phone] Discharge Disposition: Home Social History Tobacco Use [...] Hematology [place] [address] Markel Borjas MD [facility] [place] [address] 11/02/2024 12:00 PM EDT Appointment [place] [address] 11/02/2024 1:00 PM EDT Office Visit [place] [address] Magdalena Peralta MD [facility] [place] [address] 03/01/2025 4:15 PM EDT Office Visit Dermatology at [address] [place] [address] Marek Bonilla MD [address], [place] [address] documented as of this encounter Procedures Procedure Name Priority Date/Time Associated Diagnosis Comments SURGICAL PATHOLOGY REPORT Routine 02/05/2023 3:00 PM EDT documented in this encounter Results * Surgical Pathology Report (02/05/2023 3:00 PM EDT) Final Diagnosis [id number] ? Location: OPW The signing pathologist has (i) examined the relevant preparation(s) for the specimen(s) and (ii) rendered or confirmed the diagnosis(es). . ?Surgical Pathology DIAGNOSIS Left upper back, skin punch biopsy: - ??Compound dysplastic ??melanocytic nevus with moderate atypia, transected at peripheral specimen edges ?? (see discussion) Electronically signed by: ?Vanna CULP, Jesse Shields Verified: ??02/16/2023 8:04 ?? Dermatopathologist Performed at: ??-[facility] Dept. of Pathology, [place] [address] Home Health Provider: Kunal Rubi MD, FCAP, ??CLIA Certificate: [id number] DISCUSSION If there is an obvious clinical [...] labeled A1. ??sns 02/16/2023 8:04 AM EDT [facility] SPECIMEN FROM SKIN / Unknown 02/05/2023 3:00 PM EDT 02/05/2023 3:00 PM EDT Marek Bonilla MD PATHOLOGY/CYTOLOGY O RDERABLES [facility] [place] [place] [address] [facility] [place] [address] documented in this encounter Visit Diagnoses Not on filedocumented in this encounter Care Teams Technical Clerk Relationship Specialty Start Date End Date Magdalena Acosta MD [address] [place] [address] PCP - General Family Medicine 02/05/23 documented as of this encounter
--- OUTSIDE RECORDS SUMMARY | 2024-06-08 14:13 | XMS_ITS | Encounter Summary ---
[place] [address] Care Team Providers Care Patient Registrar Name Role Phone Deborah Quiroga APRN Primary Care Provider [phone] Reason for Referral * Consultation (Routine) - Closed Specialty Diagnoses / Procedures Referred By Contac t Referred To Contact Rheumatology Diagnoses Positive FRANCISCO (antinuclear antibody) Arthralgia, unspecified joint Sandy Wu APRN [address] [place] [address] [facility] Rheumatology [address] [place] [phone] Referral ID Status Reason Start Date Expiration Date V isits Requested Visits Authorized [id number] Closed Consult, Test & Treat PCP Updated and/or Approved 01/01/2022 01/01/2023 6 6 Encounter Details Date Type Department Care Team (Latest Contact Info) Description 01/01/2022 Transcribe Orders eDH Incoming Referrals [phone] Sandy Wu APRN [address] [place], [place] [id number] Positive FRANCISCO (antinuclear antibody); Arthralgia, unspecified joint [...] EST Office Visit Hematology and Oncology at [place] [phone] Markel Borjas MD [facility] [place] [address] 11/02/2024 12:00 PM EDT Appointment Pulmonology at [address] 11/02/2024 1:00 PM EDT Office Visit Rheumatology at [place] [address] Magdalena Peralta MD [facility] [place] [address] 03/01/2025 4:15 PM EDT Office Visit Dermatology at [address] [phone] Marek Bonilla MD [address] [place] [address], [place] [address] Scheduled Referrals Name Type Priority Associated Diagnoses Orde r Schedule Referral to Rheumatology Outpatient Referral Routine Positive FRANCISCO (antinuclear antibody) Arthralgia, unspecified joint Ordered: 01/01/2022 documented as of this encounter Visit Diagnoses Diagnosis Positive FRANCISCO (antinuclear antibody) Other and unspecified nonspecific immunological findings Arthralgia, unspecified joint documented in this encounter Care Teams Patient Registrar Relationship Specialty Start Date End Date Deborah Quiroga APRN PCP - General Family Medicine 03/24/16 02/04/23 documented as of this encounter
--- OUTSIDE RECORDS SUMMARY | 2024-06-08 14:13 | XMS_ITS | Encounter Summary ---
Author Organization [facility] [address] Care Team Providers Care Certified Public Accountant Name Role Phone Deborah Quiroga APRN Primary Care Provider [phone] Reason for Referral * Consultation (Routine) - Closed Specialty Diagnoses / Procedures Referred By Crispin maxwell Referred To Contact Neurology Diagnoses Polyneuropathy Deborah Quiroga APRN [address] [facility] [address] [place] [address] [facility] [address] [place] [phone] Referral ID Status Reason Start Date Expiration Date V isits Requested Visits Authorized [id number] Closed Consult, Test & Treat 10/29/2022 10/29/2023 1 1 Encounter Details Date Type Department Care Team (Latest Contact Info) Description 10/29/2022 Transcribe Orders eDH Incoming Referrals [phone] Deborah Quiroga APRN [address] [facility] [address] [place] [address] Polyneuropathy (Primary Dx) Social History [...] EST Office Visit Hematology [place] [address] Markel Borjas MD [facility] DR HEM[place]Y [place] [address] 11/02/2024 12:00 PM EDT Appointment [place] [address] 11/02/2024 1:00 PM EDT Office [place] [address] Magdalena Peralta MD [facility] [place] [address] 03/01/2025 4:15 PM EDT Office Visit Dermatology at [place] [address] [facility] [place] [address] Marek Bonilla MD [address] [facility] [place] [address] Scheduled Referrals Name Type Priority Associated Diagnoses Orde r Schedule Referral to Neurology Outpatient Referral Routine Polyneuropathy Ordered: 10/29/2022 documented as of this encounter Visit Diagnoses Diagnosis Polyneuropathy- Primary Unspecified hereditary and idiopathic peripheral neuropathy documented in this encounter Care Teams Certified Public Accountant Relationship Specialty Start Date End Date Deborah Quiroga APRN PCP - General Family Medicine 03/24/16 02/04/23 documented as of this encounter
--- OUTSIDE RECORDS SUMMARY | 2024-06-08 14:13 | XMS_ITS | Encounter Summary ---
Author Organization [facility] Address [facility] [place] [address] Care Team Providers Care Saw Man Name Role Phone Ashley Quirogan [place] ANURAG Primary Care Provider [phone] Encounter Details Date Type Department Care Team (Late st Contact Info) Description 01/14/2023 Refill Dermatology at [address] [address] Lupe Connor RN Social History [...] She would like the medication called into [facility] in [facility]. Discussed with Dr. [...] EST Office Visit Hematology and Oncology at [place] [phone] Markel Borjas MD [facility] [address] [place] [address] 11/02/2024 12:00 PM EDT [place] [address] 11/02/2024 1:00 PM EDT Office [place] [address] Magdalena Peralta MD [facility] [place] [address] 03/01/2025 4:15 PM EDT Office Visit Dermatology at [place] [address] [facility] [place] [address] Marek Bonilla MD [address] [facility] [address], [place] A DERMATOLOGY [place], [place] [phone] documented as of this encounter Visit Diagnoses Not on filedocumented in this encounter Care Teams Saw Man Relationship Specialty Start Date End Date Deborah Quiroga APRN PCP - General Family Medicine 03/24/16 02/04/23 documented as of this encounter
--- OUTSIDE RECORDS SUMMARY | 2024-06-08 14:13 | XMS_ITS | Encounter Summary ---
Author Organization [facility] [place] [address] Care Team Providers Care Senior Packaging Engineer Name Role Phone JunaidAshley hargrovezac Shields APRN Primary Care Provider [phone] Encounter Details Date Type Department Care Team (Late st Contact Info) Description 11/02/2022 Orders Only Trace [place] [address] Emily Lyons PA [facility] CARDIOLOGY [place], [place] [phone] Aortic valve stenosis, etiology of cardiac valve [...] EST Office Visit [place]ology [place] [address] Markel Borjas MD [facility] HEMATOLOGY AND ONCOLOGY [place], [place] [phone] 11/02/2024 12:00 PM EDT Appointment [place] [address] 11/02/2024 1:00 PM EDT Office [place] [address] Magdalena Peralta MD [facility] [place] [address] 03/01/2025 4:15 PM EDT Office Visit Dermatology at [place] [address] [facility] [place] [address] Marek Bonilla MD [address] [facility] [place] [address] documented as of this encounter Visit Diagnoses Diagnosis Aortic valve stenosis, etiology of cardiac valve disease unspecified documented in this encounter Care Teams Senior Packaging Engineer Relationship Specialty Start Date End Date Deborah Quiroga APRN PCP - General Family Medicine 03/24/16 02/04/23 documented as of this encounter
--- OUTSIDE RECORDS SUMMARY | 2024-06-08 14:13 | XMS_ITS | Encounter Summary ---
Author Organization [facility] Address [facility] [place] [address] Care Team Providers Care Director Of Group Sales Name Role Phone Deborah Quiroga APRN Primary Care Provider [phone] Reason for Visit * Consultation (Routine) - Closed Specialty Diagnoses / Procedures Referred By Contkrystle t Referred To Contact Rheumatology Diagnoses Positive FRANCISCO (antinuclear antibody) Arthralgia, unspecified joint Sandy Wu APRN [address] [place] [address] [facility] Rhe[facility]ology [address] [place] [address] Referral ID Status Reason Start Date Expiration Date V isits Requested Visits Authorized [id number] Closed Consult, Test & Treat PCP Updated and/or Approved 01/01/2022 01/01/2023 6 6 Encounter Details Date Type Department Care Team (Latest Contact Info) Description 01/20/2022 10:00 AM EDT Office Visit [place] [address] Raymond Loredo MD [facility] [place] [address] Rosacea; Raynaud's phenomenon without gangrene; [...] radiocarpal or ulnocarpal joints. 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 SJC/TJC 0/0. Hips: Full motion, [...] Despite a positive blood test for lupus (FRANCICSO) there is nothing in her exam to [...] can be done locally or here at [facility] that the current time is not particularly interested it seems Raymond Loredo MD documented in this encounter Plan of Treatment Upcoming Encounters Date Type Department Care Team (Late st Contact Info) Description 06/23/2024 2:00 PM EST Office Visit Hematology and Oncology at [place] [phone] Markel Borjas MD [facility] [address] [place] [address] 11/02/2024 12:00 PM EDT Appointment Pulmonology at [place] [address] 11/02/2024 1:00 PM EDT Office Visit Rheumatology at [place] [address] Magdalena Peralta MD [facility] [place] [address] 03/01/2025 4:15 PM EDT Office Visit Dermatology at [place] [address] [place] [address] Marek Bonilla MD [address] [facility], [place] [address] Scheduled Referrals Name Type Priority Associated Diagnoses [...] in this encounter Care Teams Director Of Group Sales Relationship Specialty Start Date End Date Deborah Quiroga APRN PCP - General Family Medicine 03/24/16 02/04/23 documented as of this encounter
--- OUTSIDE RECORDS SUMMARY | 2024-06-08 14:13 | XMS_ITS | Encounter Summary ---
Author Organization [facility] Erika [facility] [place] [address] Care Team Providers Care Ash Handler Name Role Phone Magdalena Acosta MD Primary Care Provider [phone] Encounter Details Date Type Department Care Team [...] EST Office Visit Hematology and Oncology at [place] [phone] Markel Borjas MD [facility] DR HEMATOLOGY [place] [address] 11/02/2024 12:00 PM EDT [place]oint[place] [address] 11/02/2024 1:00 PM EDT Office [place] [address] Magdalena Peralta MD [facility] [place] [address] 03/01/2025 4:15 PM EDT Office Visit Dermatology at [place] [address] [place] [address] Marek Bonilla MD [address], [address] [place] [address] documented as of this encounter Visit Diagnoses Not on filedocumented in this encounter Care Teams Ash Handler Relationship Specialty Start Date End Date Magdalena Acosta MD [address] [place] [address] PCP - General Family Medicine 02/05/23 documented as of this encounter
--- OUTSIDE RECORDS SUMMARY | 2024-06-08 14:13 | XMS_ITS | Encounter Summary ---
Author Organization [facility] Address [facility] [place] [address] Care Team Providers Care Veterinary Hospital Attendant Name Role Phone Magdalena Acosta MD Primary Care Provider [phone] Encounter Details Date Type Department Care Team (Late st Contact Info) Description 03/29/2023 Orders Only Cardiology at [address] [address] Ranjan Delgado MD [facility] [place] [place] [address] Severe aortic stenosis (Primary Dx) Social History [...] EST Office Visit [place]ology [place] [address] Markel Borjas MD [facility] DR HEMATOLOGY AND ONCOLOGY [place], [place] [address] 11/02/2024 12:00 PM EDT [place]ointment [place] [address] 11/02/2024 1:00 PM EDT [place] [address] Magdalena Peralta MD [facility] [place] [address] 03/01/2025 4:15 PM EDT Office Visit Dermatology at [place] [address] [facility] [place] [address] Marek Bonilla MD [address] [facility] [address], [address] [place] [address] Scheduled Orders Name Type Priority Associated Diagnoses [...] disorders documented in this encounter Care Teams Veterinary Hospital Attendant Relationship Specialty Start Date End Date Magdalena Acosta MD [address] [place] [address] PCP - General Family Medicine 02/05/23 documented as of this encounter
--- OUTSIDE RECORDS SUMMARY | 2024-06-08 14:13 | XMS_ITS | Encounter Summary ---
Author Organization [facility] Erika [place] [address] Care Team Providers Care Corporate Communications Manager Name Role Phone Ashley Quirogazac Shields APRN Primary Care Provider [phone] Encounter Details Date Type Department Care Team [...] EST Office Visit Hematology and Oncology at [place] [phone] Markel Borjas MD [facility] DR [place] [address] 11/02/2024 12:00 PM EDT Appointment [place] [address] 11/02/2024 1:00 PM EDT Office [place] [address] Magdalena Peralta MD [facility] [place] [address] 03/01/2025 4:15 PM EDT Office Visit Dermatology at [place] [address] [place] [address] Marek Bonilla MD [address] [place] [address] documented as of this encounter Visit Diagnoses Not on filedocumented in this encounter Care Teams Corporate Communications Manager Relationship Specialty Start Date End Date Deborah Quiroga APRN PCP - General Family Medicine 03/24/16 02/04/23 documented as of this encounter
--- OUTSIDE RECORDS SUMMARY | 2024-06-08 14:13 | XMS_ITS | Encounter Summary ---
Author Organization [facility] Erika [facility] [place] [address] Care Team Providers Care Careers Counsellor Name Role Phone Magdalena Acosta MD Primary Care Provider [phone] Encounter Details Date Type Department Care Team [...] EST Office Visit Hematology and Oncology at [place] [phone] Markel Borjas MD [facility] [place] [address] 11/02/2024 12:00 PM EDT Appointment [place] [address] 11/02/2024 1:00 PM EDT Office [place] [address] Magdalena Peralta MD [facility] DR [place] [address] 03/01/2025 4:15 PM EDT Office Visit Dermatology at [place] [address] [place] [address] Marek Bonilla MD [address] [place] [address] documented as of this encounter Visit Diagnoses Not on filedocumented in this encounter Care Teams Careers Counsellor Relationship Specialty Start Date End Date Magdalena Acosta MD [address] [place] [address] PCP - General Family Medicine 02/05/23 documented as of this encounter
--- OUTSIDE RECORDS SUMMARY | 2024-06-08 14:13 | XMS_ITS | Encounter Summary ---
Author Organization [facility] Erika [facility] [place] [address] Care Team Providers Care Laboratory Assistant Name Role Phone Magdalena Acosta MD Primary Care Provider [phone] Encounter Details Date Type Department Care Team [...] EST Office Visit Hematology and Oncology at [place] [phone] Markel Borjas MD [facility] DR [place] [address] 11/02/2024 12:00 PM EDT Appointment [place] [address] 11/02/2024 1:00 PM EDT Office [place] [address] Magdalena Peralta MD [facility] [place] [address] 03/01/2025 4:15 PM EDT Office Visit Dermatology at [place] [address] [place] [address] Marek Bonilla MD [address] [place] [address] documented as of this encounter Visit Diagnoses Not on filedocumented in this encounter Care Teams Laboratory Assistant Relationship Specialty Start Date End Date Magdalena Acosta MD [address] [place] [address] PCP - General Family Medicine 02/05/23 documented as of this encounter
--- OUTSIDE RECORDS SUMMARY | 2024-06-08 14:13 | XMS_ITS | Encounter Summary ---
Author Organization [facility] Address [facility] [place] [address] Care Team Providers Care Associate Drafter Name Role Phone Magdalena Acosta MD Primary Care Provider [phone] Reason for Visit * Consultation (Routine) - Closed Specialty Diagnoses / Procedures Referred By Contac t Referred To Contact Rheumatology Diagnoses Weakness Kyra Haas MD [facility] [address] [place] [address] [facility] [address] [place] [phone] Referral ID Status Reason Start Date Expiration Date V isits Requested Visits Authorized [id number] Closed Consult, Test & Treat PCP Updated and/or Approved 02/25/2023 02/25/2024 6 6 Encounter Details Date Type Department Care Team (Late st Contact Info) Description 03/18/2023 1:00 PM EDT Office [place] [address] Kia Viramontes, [facility] [place] [address] Magdalena Peralta MD [facility] [place] [address] Positive FRANCISCO (antinuclear antibody) Social [...] appearing MUAPs. Recent serologic work up showed RFANCISCO 1:5120 speckled VIC negative Myositis panel with ACCOUNT RELATIONSHIP MANAGER ab 149.1 (positive) Anti U1RNP IgG [...] a chair without assistance of upper extremities. Embossing Calender Operator strength 3+/5 bilaterally; otherwise large muscle [...] to risk of retinal toxicity with terminal make up operator Plaquenil use, which she already does. Recommendations: #mixed connective tissue disease Start hydroxychloroquine 200 mg qd Labs today: repeat FRANCISCO, dsDNA, complements, CBC, CMP, CK, ESR, CRP Follow up 1 month The patient was seen and discussed with Dr. Wander Peralta MD Rheumatology Fellow Pager: [phone] CC: Kyra Haas * Kia Viramontes DO [...] EST Office Visit Hematology [place] [phone] Markel Borjas MD [facility] DR HEMATOLOGY [place] [address] 11/02/2024 12:00 PM EDT Appointment [place] [address] 11/02/2024 1:00 PM EDT Office [place] [phone] Magdalena Peralta MD [facility] [place] [address] 03/01/2025 4:15 PM EDT Office Visit Dermatology at [address] [place] [phone] Marek Bonilla MD [address] [facility] TOD[facility] A DERMATOLOGY [place], [place] [phone] documented as of this encounter Results * Comprehensive metabolic panel (non-fasting) (03/18/2023 2:14 PM EDT) Glucose 93 65 - 199 mg/dL [facility] Comment:Diabetes: >=200 mg/d L plus symptoms Blood Urea Nitrogen 18 8 - 18 mg/dL [facility] Creatinine 0.99 0.70 - 1.20 mg/dL [facility] Sodium 141 135 - 145 mmol/L [facility] Potassium 4.5 3.5 - 5.0 mmol/L [facility] Comment: Please note: ??Patients with WBC >100,000 may have falsely elevated Potassium levels. ??For accurate Potassium quantification in these patients send serum separator tube (gold top) for subsequent determinations. ??Contact the Clinical Chemistry Laboratory if there are any questions. Chloride 106 98 - 107 mmol/L [facility] Carbon Dioxide 24 22 - 31 mmol/L [facility] Anion Gap 11 5 - 15 mmol/L [facility] Calcium 10.0 8.5 - 10.5 mg/dL [facility] Protein, Total 7.3 6.1 - 8.0 g/dL [facility] Albumin 4.3 3.2 - 5.2 g/dL [facility] Aspartate Aminotransferase 26 0 - 30 unit/L [facility] Alanine Aminotransferase 11 0 - 30 unit/L [facility] Alkaline Phosphatase 91 35 - 105 unit/L [facility] Bilirubin, Total 0.4 0.2 - 1.3 mg/dL [facility] Est Glomerular Filtration Rate 62 >=60 mL/min/1. 73 m?? [facility] Comment: This patient's estimated [...] Lab Kia Viramontes DO CHEMISTRY ORDERABL ES [facility] [place] [address] * (ABNORMAL) FRANCISCO Ab by IFA (03/18/2023 2:14 PM EDT) FRANCISCO Ab Screen Test ? Result ?Flag ??Unit ??RefValue Antinuclear Ab, HEp-2 ?Positive 1:2560 ??@ ?<1:80 (Negative) ??Substrate, S ? ADDITIONAL INFORMATION --------- ?Method: Immunofluorescence using HEp-2 cellular substrate. ??FRANCISCO Titer: ? 1:2560 ??FRANCISCO Pattern: ? Speckled ?Test Performed by: ?[facility] ?[address] [id number] ?Board Certified Family Physician: Raymond Chaudhry M.D. Ph.D.; CLIA# [id number] ([id number]) [facility] Blood 03/18/2023 2:14 PM EDT 03/18/2023 3:02 PM EDT Narrative Resulting Agency Comment Spec In Lab Kia Viramontes DO CHEMISTRY ORDERABL ES [facility] [place] [address] * DNA Antibody (Double-Stranded) (03/18/2023 2:14 PM EDT) dsDNA Ab <0.6 <=15.0 IU/mL [facility] Comment: <10 negative 10-15 equivocal >15 positive This dsDNA antibody result was generated using a fluoroenzyme immunoassay on the Dubizzle 250 analyzer. This quantitative test is designed [...] SEND OUT ORDER JODIE Performing Organization Address City/[facility] Co de Phone Number [facility] [place] [address] * CK (03/18/2023 2:14 PM EDT) Creatine Kinase 38 0 - 160 unit/L [facility] Blood 03/18/2023 2:14 PM EDT 03/18/2023 2:24 PM EDT Narrative Resulting Agency Comment Spec In Lab Kia Viramontes DO CHEMISTRY ORDERABL ES Performing Organization Address [facility] Co de Phone Number [facility] [place] [address] * C4 Complement (03/18/2023 2:14 PM EDT) Complement C4 30 10 - 40 mg/dL [facility] Blood 03/18/2023 2:14 PM EDT 03/18/2023 2:24 PM EDT Narrative Resulting Agency Comment Spec In Lab Kia Viramontes DO CHEMISTRY ORDERABL ES Performing Organization Address [facility] Co de Phone Number [facility] [place] [address] * C3 Complement (03/18/2023 2:14 PM EDT) Complement C3 142 90 - 180 mg/dL [facility] Blood 03/18/2023 2:14 PM EDT 03/18/2023 2:24 PM EDT Narrative Resulting Agency Comment Spec In Lab Kia Viramontes DO CHEMISTRY ORDERABL ES Performing Organization Address [facility] Co de Phone Number [facility] [place] [address] * CRP, acute inflammation (03/18/2023 2:14 PM EDT) C-Reactive Protein 3.0 <=4.9 mg/L [facility] Blood 03/18/2023 2:14 PM EDT 03/18/2023 2:24 PM EDT Narrative Resulting Agency Comment Spec In Lab Kia Viramontes DO CHEMISTRY ORDERABL ES Performing Organization Address [facility] Co de Phone Number [facility] [place] [address] * (ABNORMAL) Sedimentation rate (03/18/2023 2:14 PM EDT) Sedimentation Rate Automated 68(H) 2 - 39 mm/hr [facility] Comment: Effective July 12, 2019 new capillary photometric technology has resulted in a change in reference ranges. It is recommended that each ESR result be reviewed with its own age appropriate reference range. Blood 03/18/2023 2:14 PM EDT 03/18/2023 2:24 PM EDT Narrative Resulting Agency Comment Spec In Lab Kia Viramontes DO HEMATOLOGY ORDERAB LES Performing Organization Address [facility] Co de Phone Number [facility] [place] [address] documented in this encounter Visit Diagnoses Diagnosis Positive FRANCISCO (antinuclear antibody) Other and unspecified nonspecific immunological findings documented in this encounter Care Teams Associate Drafter Relationship Specialty Start Date End Date Magdalena Acosta MD [address] [place] [address] PCP - General Family Medicine 02/05/23 documented as of this encounter
--- OUTSIDE RECORDS SUMMARY | 2024-06-08 14:13 | XMS_ITS | Encounter Summary ---
[place] [address] Care Team Providers Care Arts And Crafts Instructor Name Role Phone Magdalena Acosta MD Primary Care Provider [phone] Reason for Visit * Reason Comments Skin Lesion Encounter Details Date Type Department Care Team (Late st Contact Info) Description 04/20/2023 10:00 AM EDT Office Visit Dermatology at [address] [phone] Marek Bonilla MD [address] [facility], [place] [address] Seborrheic keratosis Social History Tobacco Use Types [...] cutaneous and ocular 3. Previously told by sales driver that she had corneal tears from [...] EST Office Visit Hematology and Oncology at [place] [address] Markel Borjas MD [facility] [place] [address] 11/02/2024 12:00 PM EDT Appointment Pulmonology at [place] [address] 11/02/2024 1:00 PM EDT Office Visit Rheumatology at [place] [address] Magdalena Peralta MD [facility] [place] [address] 03/01/2025 4:15 PM EDT Office Visit Dermatology at [address] [place] [address] Marek Bonilla MD [address] [facility] [place] [address] documented as of this encounter Visit Diagnoses Diagnosis Seborrheic keratosis Other seborrheic keratosis documented in this encounter Care Teams Arts And Crafts Instructor Relationship Specialty Start Date End Date Magdalena Acosta MD [address] [place] [address] PCP - General Family Medicine 02/05/23 documented as of this encounter
--- OUTSIDE RECORDS SUMMARY | 2024-06-08 14:13 | XMS_ITS | Encounter Summary ---
Author Organization [facility] [place] [address] Care Team Providers Care Gelatin Plant Supervisor Name Role Phone Deborah Quiroga APRN Primary Care Provider Encounter Details Date Type Department Care Team (Late st Contact Info) Description 06/08/2022 Ancillary Procedure Radiology Library at [facility] [place] [address] Deborah Quiroga APRN [address] [place] [phone] Social History Tobacco Use Types Packs/Day [...] EST Office Visit [place]ology [place] [phone] Markel Borjas MD [facility] [place] [address] 11/02/2024 12:00 PM EDT [place]oint[place] [phone] 11/02/2024 1:00 PM EDT Office [place] [address] Magdalena Peralta MD [facility] [place] [address] 03/01/2025 4:15 PM EDT Office Visit Dermatology at [place] [address] [facility] [place] [phone] Marek Bonilla MD [address] [facility] [address], [place] [address] documented as of this encounter Procedures Procedure Name Priority Date/Time Associated Diagnosis Comments FILM LIBRARY STORAGE ONLY DX SPINE Routine 06/08/2022 12:00 AM EST documented in this encounter Results * Film Library- Storage Only DX Spine (06/08/2022 12:00 AM EST) Narrative [facility] - 06/18/2022 10:57 AM EST This exam is auto-finalizing. It's purpose is for storage only. Deborah Quiroga APRN IMGerman FILM LIBRARY OR DERABLES Performing Organization Address City/State/[facility] Co de Phone Number [place], [place] documented in this encounter Visit Diagnoses Not on filedocumented in this encounter Care Teams Gelatin Plant Supervisor Relationship Specialty Start Date End Date Deborah Quiroga APRN PCP - General Family Medicine 03/24/16 02/04/23 documented as of this encounter
--- OUTSIDE RECORDS SUMMARY | 2024-06-08 14:13 | XMS_ITS | Encounter Summary ---
[place] [address] Care Team Providers Care Office Coordinator Receptionist Name Role Phone Ashley Quirogazac Shields APRN Primary Care Provider [phone] Reason for Visit * Reason Comments Annual Exam Encounter Details Date Type Department Care Team (Late st Contact Info) Description 01/09/2022 3:15 PM EDT Office Visit Dermatology at [address] [phone] Marek Bonilla MD [address] [facility], [place] A DERMATOLOGY [place], [place] [phone] Rosacea Social History Tobacco Use Types Packs/Day [...] cutaneous and ocular 2. Previously told by filteration operator that she had corneal tears from [...] refills. We will [facility] this into [facility] [place] 3. Continue metronidazole 0.75% gel applying every [...] Visit Hemat[place] [address] Markel Borjas MD [facility] [address] [place] [address] 11/02/2024 12:00 PM EDT Appoint[place] [phone] 11/02/2024 1:00 PM EDT Office [place] [address] Magdalena Peralta MD [facility] [place] [address] 03/01/2025 4:15 PM EDT Office Visit Dermatology at [place] [address] [facility] [place] [address] Marek Bonilla MD [address] [facility] [address], [place] [address] documented as of this encounter Visit Diagnoses Diagnosis Rosacea documented in this encounter Care Teams Office Coordinator Receptionist Relationship Specialty Start Date End Date Debroah Quiroga APRN PCP - General Family Medicine 03/24/16 02/04/23 documented as of this encounter
--- OUTSIDE RECORDS SUMMARY | 2024-06-08 14:13 | XMS_ITS | Encounter Summary ---
[place] [address] Care Team Providers Care Multi Township Assessor Name Role Phone Magdalena Acosta MD Primary Care Provider Reason for Visit * Reason Comments Annual Exam Encounter Details Date Type Department Care Team (Late st Contact Info) Description 02/05/2023 2:30 PM EDT Office Visit Dermatology at [address] [phone] Marek Bonilla MD [address] [facility], [facility] A DERMATOLOGY [place], [place] [phone] Rosacea; Ocular rosacea; Nevus Social History Tobacco [...] cutaneous and ocular 2. Previously told by residential subcontractor that she had corneal tears from her [...] EST Office Visit Hematology [place] [phone] Markel Borjas MD [facility] [address] [place] [address] 11/02/2024 12:00 PM EDT Appointment [place] [phone] 11/02/2024 1:00 PM EDT Office [place] [address] Magdalena Peralta MD [facility] [place] [address] 03/01/2025 4:15 PM EDT Office Visit Dermatology at [address] [phone] Marek Bonilla MD [address] [facility] [address], [place] A DERMATOLOGY [place], [place] [phone] documented as of this encounter Visit Diagnoses Diagnosis Rosacea Ocular rosacea Rosacea Nevus Benign neoplasm of skin, site unspecified documented in this encounter Care Teams Multi Township Assessor Relationship Specialty Start Date End Date Magdalena Acosta MD [address] [place] [address] PCP - General Family Medicine 02/05/23 documented as of this encounter
--- OUTSIDE RECORDS SUMMARY | 2024-06-08 14:13 | XMS_ITS | Encounter Summary ---
Author Organization [facility] Address [facility] [place] [address] Care Team Providers Care Shells Inspector Name Role Phone Deborah Quiroga ANURAG Primary Care Provider [phone] Encounter Details Date Type Department Care Team (Late st Contact Info) Description 01/09/2022 Refill Dermatology at [address] [phone] Lupe Connor RN Social History Tobacco Use [...] Visit Hematology and Oncology at [place] [phone] Markel Borjas MD [facility] [address] [place]AT[place] [address] 11/02/2024 12:00 PM EDT Appointment [place] [address] 11/02/2024 1:00 PM EDT Office Visit Rheumatology at [place] [phone] Magdalena Peralta MD [facility] [address] 03/01/2025 4:15 PM EDT Office Visit Dermatology at [place] [address] [facility] [place] [phone] Marek Bonilla MD [address] [facility] [address], [place] [address] documented as of this encounter Visit Diagnoses Not on filedocumented in this encounter Care Teams Shells Inspector Relationship Specialty Start Date End Date Deborah Quiroga APRN PCP - General Family Medicine 03/24/16 02/04/23 documented as of this encounter
--- OUTSIDE RECORDS SUMMARY | 2024-06-08 14:13 | XMS_ITS | Encounter Summary ---
Author Organization [facility] Erika [facility] [place] [address] Care Team Providers Care Manpower Development Specialist Manager Name Role Phone Ashley Quirogazac Shields APRN Primary Care Provider [phone] Encounter Details Date Type Department Care Team [...] EST Office Visit Hematology and Oncology at [place] [phone] Markel Borjas MD [facility] [address] HEMATOLOGY [place] [address] 11/02/2024 12:00 PM EDT [place]ointment [place] [address] 11/02/2024 1:00 PM EDT Office [place] [address] Magdalena Peralta MD [facility] [place] [address] 03/01/2025 4:15 PM EDT Office Visit Dermatology at [place] [address] [facility] [address] [place] [phone] Marek Bonilla MD [address] [facility] [address], [place] [address] documented as of this encounter Visit Diagnoses Not on filedocumented in this encounter Care Teams Manpower Development Specialist Manager Relationship Specialty Start Date End Date Deborah Quiroga APRN PCP - General Family Medicine 03/24/16 02/04/23 documented as of this encounter
--- OUTSIDE RECORDS SUMMARY | 2024-06-08 14:13 | XMS_ITS | Encounter Summary ---
Author Organization [facility] [place] [address] Care Team Providers Care Sponge Maker Name Role Phone Deborah Quiroga APRN Primary Care Provider [phone] Encounter Details Date Type Department Care Team (Late st Contact Info) Description 11/09/2022 11:30 AM EDT - 11/09/2022 12:30 PM EDT [place] [address] Nitesh Escobedo MD [facility] [place] [address] CARDIAC CATHETERIZATION Social History Tobacco Use Types [...] Center 02/05/2023 2:30 PM Marek Bonilla MD [facility] New Medications to be Picked Up None For questions regarding this document or issues relating to this hospitalization on the Medical Service, please contact your inpatient physician through the [facility] Director Medical Writing . Issues afterhours and on weekends will [...] topically 2 times daily as needed. 10/22/2022 [facility] EvianTouch Verio test strips Strip USE DAILY 01/03/2022 [facility] EvianToTwistle Delica Plus Lancet 33 gauge Misc USE [...] Pre-Procedure H&P Update: Cardiac Catheterization Purnima Thacker [id number] 1955 Chief Complaint: BONILLA HPI: Purnima Thacker [...] 11/09/22 11:43 AM [facility] Pager: [phone] documented in this encounter Plan of Treatment Upcoming Encounters Date Type Department Care Team (Late st Contact Info) Description 06/23/2024 2:00 PM EST Office Visit Hematology [place] [address] Markel Borjas MD [facility] [address] [place] [address] 11/02/2024 12:00 PM EDT Appointment [place] [address] 11/02/2024 1:00 PM EDT Office [place] [address] Magdalena Peralta MD [facility] [place] [address] 03/01/2025 4:15 PM EDT Office Visit Dermatology at [place] [address] [facility] [place] [phone] Marek Bonilla MD [address] [facility] [address], [place] [address] documented as of this encounter Procedures Procedure Name Priority Date/Time Associated Diagnosis Comments CARDIAC CATHETERIZATION Routine 11/10/19 1:05 PM EDT Aortic valve stenosis, etiology of cardiac valve disease unspecified Cath [facility] Left Heart Cath & Arts W/Inj & Angio Img S&I ([id number]) 11/09/2022 11:51 AM EDT Aortic valve stenosis, etiology of cardiac valve disease unspecified EKG 12-LEAD Routine 11/09/2022 11:17 AM EDT Aortic valve stenosis, etiology of cardiac valve disease unspecified documented in this encounter Results * CARDIAC CATHETERIZATION (11/09/2022 1:05 PM EDT) Anatomical Region Laterality Modality Other Narrative 11/09/2022 2:01 PM EDT ?[facility] ? Cardiac Catheterization/Intervention Report ? Patient Name: Kirstie, Purnima M. ? Procedure Date: 11/09/2022 ? A #: [id number] ? Primary Physician: Nitesh Escobedo ? Case #: [id number] ? File Name: [id number] ? Catheterization Order Number: [id number] ? [facility] ? Final Report [place], [place] ? Patient Name: ? Purnima M. Kirstie ? ID#: ?[id number] ? : ?1955 ? Procedure Date: ? [...] was designated as ASA Class III. The [facility] clinical frailty scale ?is 4: Vulnerable. [...] (Bezet) 457 ms MUSE SYSTEM Calculated [place] 44 degrees MUSE SYSTEM Calculated [place] 33 degrees MUSE SYSTEM Calculated [place] 30 degrees MUSE SYSTEM INTERPRETATION Sinus rhythm Occasional Premature ventricular complexes Otherwise normal ECG When compared with ECG of 21-SEP-2016 12:26, Premature ventricular complexes are now Present [place] interval has decreased Nonspecific T wave abnormality has replaced inverted T waves in Inferior leads I personally reviewed the tracing and edited the fellows interpretation Confirmed by fellow MD Anitha, Carissa ([id number]) on 11/09/2022 6:17:28 PM Confirmed by Elsa [...] MD) documented in this encounter Care Teams Sponge Maker Relationship Specialty Start Date End Date Deborah Quiroga, PROFESSOR OF KINESIOLOGY PCP - General Family Medicine 03/24/16 02/04/23 documented as of this encounter
--- OUTSIDE RECORDS SUMMARY | 2024-06-08 14:13 | XMS_ITS | Encounter Summary ---
[place] [address] Care Team Providers Care Cell Biologist Name Role Phone Magdalena Acosta MD Primary Care Provider [phone] Reason for Visit * Reason Comments Suture / Staple Removal Encounter Details Date Type Department Care Team (Late st Contact Info) Description 02/16/2023 10:00 AM EDT Office Visit Dermatology at [place] [address] [facility] [place] [phone] Marek Bonilla MD [address] [facility], [address] A DERMATOLOGY [place] [phone] Visit for suture removal Social History Tobacco [...] EST Office Visit [place] [address] Markel Borjas MD [facility] [address] [place] [address] 11/02/2024 12:00 PM EDT Appointment [place] [address] 11/02/2024 1:00 PM EDT Office [place] [address] Magdalena Peralta MD [facility] [place] [address] 03/01/2025 4:15 PM EDT Office Visit Dermatology at [address] [place] [phone] Marek Bonilla MD [address] [facility], [place] [address] documented as of this encounter Visit Diagnoses Diagnosis Visit for suture removal Encounter for removal of sutures documented in this encounter Care Teams Cell Biologist Relationship Specialty Start Date End Date Magdalena Acosta MD [address] [place] [address] PCP - General Family Medicine 02/05/23 documented as of this encounter
--- OUTSIDE RECORDS SUMMARY | 2024-06-08 14:13 | XMS_ITS | Encounter Summary ---
Author Organization [facility] Address [facility] [place] [address] Care Team Providers Care Project Systems Engineer Name Role Phone Ashley Quirogazac Shields APRN Primary Care Provider [phone] Encounter Details Date Type Department Care Team (Latest Contact Info) Description 06/22/2022 10:00 AM EST Office [place] [address] Raymond Loredo MD [facility] [address] Raynaud's phenomenon without gangrene; Positive FRANCISCO (antinuclear [...] can be done locally or here at [facility] that the current time is not particularly [...] for surgery by Dr. Rogers here at [facility]. In addition to painful dysesthesias in her [...] over radiocarpal or ulnocarpal joints. 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 SJC/TJC 0/0. Knees: Decreased flexion [...] EST Office Visit Hematology and Oncology at [place] [phone] Markel Borjas MD [facility] [address] [place] [address] 11/02/2024 12:00 PM EDT Appointment Pulmonology at [place] [address] 11/02/2024 1:00 PM EDT Office Visit Rheumatology at [place] [phone] Magdalena Peralta MD [facility] [place] [address] 03/01/2025 4:15 PM EDT Office Visit Dermatology at [address] [place] [address] Marek Bonilla MD [address] [place] [address] RD, [address] A DERMATOLOGY [place], [place] [phone] documented as of this encounter Visit Diagnoses Diagnosis Raynaud's phenomenon without gangrene Positive FRANCISCO (antinuclear antibody) Other and unspecified nonspecific immunological findings Primary osteoarthritis involving multiple joints Cervical disc disorder at C6-C7 level with radiculopathy documented in this encounter Care Teams Project Systems Engineer Relationship Specialty Start Date End Date Deborah Quiroga APRN PCP - General Family Medicine 03/24/16 02/04/23 documented as of this encounter
--- OUTSIDE RECORDS SUMMARY | 2024-06-08 14:13 | XMS_ITS | Encounter Summary ---
Author Organization [facility] Address [facility] [place] [address] Care Team Providers Care Carnival Worker Name Role Phone Deborah Quiroga APRN Primary Care Provider [phone] Encounter Details Date Type Department Care Team (Latest Contact Info) Description 07/03/2022 1:36 PM EST - 07/03/2022 11:59 PM EST Hospital Encounter [place]ology [place] [address] Discharge Disposition: Home Social History Tobacco Use [...] Visit Hemat[place] [address] Markel Borjas MD [facility] DR HEMATOLOGY [place] [address] 11/02/2024 12:00 PM EDT Appoint[place] [phone] 11/02/2024 1:00 PM EDT Office [place] [address] Magdalena Peralta MD [facility] [place] [address] 03/01/2025 4:15 PM EDT Office Visit Dermatology at [place] [address] [place] [phone] Marek Bonilla MD [address], [place] [address] documented as of this encounter Procedures Procedure Name Priority Date/Time Associated Diagnosis Comments FOLATE, SERUM Routine 07/03/2022 1:59 PM EST VITAMIN B12 Routine 07/03/2022 1:59 PM EST documented in this encounter Results * Folate, serum (07/03/2022 1:59 PM EST) Folate >20.0 4.8 - 24.2 ng/mL [facility] Blood Venous Draw / Unknown 07/03/2022 1:59 PM EST 07/03/2022 2:13 PM EST Narrative Resulting Agency Comment Spec In Lab Markel Borjas MD CHEMISTRY ORDERABL ES Performing Organization Address City/[facility]/ZIP Co de Phone Number [facility] [place] [address] * Vitamin B12 (07/03/2022 1:59 PM EST) Vitamin B12 449 232 - 1,245 pg/mL [facility] Blood Venous Draw / Unknown 07/03/2022 1:59 PM EST 07/03/2022 2:13 PM EST Narrative Resulting Agency Comment Spec In Lab Markel Borjas MD CHEMISTRY ORDERABL ES [facility] [place] [address] documented in this encounter Visit Diagnoses Not on filedocumented in this encounter Care Teams Carnival Worker Relationship Specialty Start Date End Date Deborah Quiroga APRN PCP - General Family Medicine 03/24/16 02/04/23 documented as of this encounter
--- OUTSIDE RECORDS SUMMARY | 2024-06-08 14:13 | XMS_ITS | Encounter Summary ---
Author Organization [facility] [place] [address] Care Team Providers Care Officer Captain Name Role Phone Magdalena Acosta MD Primary Care Provider [phone] Reason for Referral * Consultation (Routine) - Closed Specialty Diagnoses / Procedures Referred By Contac t Referred To Contact Rheumatology Diagnoses Weakness Kyra Haas MD [facility] [address] [place] [address] [facility] Rheumatology [address] [place] [phone] Referral ID Status Reason Start Date Expiration Date V isits Requested Visits Authorized [id number] Closed Consult, Test & Treat PCP Updated and/or Approved 02/25/2023 02/25/2024 6 6 Encounter Details Date Type Department Care Team (Late st Contact Info) Description 02/25/2023 Transcribe Orders eDH Incoming Referrals [phone] Magdalena Acosta MD [address] [place] [address] Weakness Social History Tobacco Use [...] Visit Hematology and Oncology at [place] [phone] Markel Borjas MD [facility] [place] [address] 11/02/2024 12:00 PM EDT Appointment [place] [address] 11/02/2024 1:00 PM EDT Office [place] [address] Magdalena Peralta MD [facility] [place] [address] 03/01/2025 4:15 PM EDT Office Visit Dermatology at [place] [address] [facility] [place] [phone] Marek Bonilla MD [address] [facility], [place] [address] Scheduled Referrals Name Type Priority Associated Diagnoses Order Schedule Referral to Rheumatology Outpatient Referral Routine Weakness Ordered: 02/25/2023 documented as of this encounter Visit Diagnoses Diagnosis Weakness Other malaise and fatigue documented in this encounter Care Teams Officer Captain Relationship Specialty Start Date End Date Magdalena Acosta MD [address] [place] [address] PCP - General Family Medicine 02/05/23 documented as of this encounter
--- OUTSIDE RECORDS SUMMARY | 2024-06-08 14:13 | XMS_ITS | Encounter Summary ---
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 documented in this encounter Plan of Treatment Upcoming Encounters Date Type Department Care Team (Late st Contact Info) Description 06/23/2024 2:00 PM EST Office Visit Hematology and Oncology at [place] [phone] [facility] DR HEMATOLOGY [place] [address] 11/02/2024 12:00 PM EDT Appointment [place] [address] 11/02/2024 1:00 PM EDT Office Visit Rheumatology at [place] [address] [facility] [place] [address] 03/01/2025 4:15 PM EDT Office Visit Dermatology at [address] [address] Marek Bonilla MD [address] [facility], [place] [address] documented as of this encounter Visit Diagnoses Not on filedocumented in this encounter Care Teams Layout Worker Relationship Specialty Start Date End Date Magdalena Acosta MD [address] [place] [address] PCP - General Family Medicine 02/05/23 documented as of this encounter
--- OUTSIDE RECORDS SUMMARY | 2024-06-08 14:13 | XMS_ITS | Encounter Summary ---
Author Organization [facility] [place] [address] Care Team Providers Care Energy Sales Broker Name Role Phone Magdalena Acosta MD Primary Care Provider [phone] Encounter Details Date Type Department Care Team (Latest Contact Info) Description 03/18/2023 2:30 PM EDT Laboratory Appointment Lab [address] [address] Positive FRANCISCO (antinuclear antibody) Social [...] EST Office Visit Hematology [place] [address] Markel Borjas MD [facility] DR HEMATOLOGY [place] [address] 11/02/2024 12:00 PM EDT Appointment [place] [address] 11/02/2024 1:00 PM EDT Office [place] [address] Magdalena Peralta MD [facility] [place] [address] 03/01/2025 4:15 PM EDT Office Visit Dermatology at [place] [address] [place] [address] Marek Bonilla MD [address], [place] [address] documented as of this encounter Procedures Procedure [...] Routine 03/18/2023 2: 14 PM EDT Positive FARNCISCO (antinuclear antibody) CBC (WITH DIFF) Routine 03/18/2023 [...] 2:14 PM EDT) Neutrophil % 71.2 % [facility] Neutrophil Absolute 2.26 1.70 - 6.10 x10(3)/mc L [facility] Lymph % 18.2 % [facility] Lymphocytes Abs 0.6(L) 0.9 - 3.2 x10(3)/mc L [facility] Monocyte % 9.7 % [facility] Monocyte Abs 0.3 0.3 - 0.9 x10(3)/ L [facility] Eos % 0.3 % [facility] Eosinophils Abs 0.0 0.0 - 0.4 x10(3)/mc L [facility] Basophil % 0.6 % [facility] Baso Absolute 0.0 0.0 - 0.1 x10(3)/mc L [facility] Immature Gran % 0.00 % [facility] Comment: Immature granulocytes(IG's)percentage and absolute count will include metamyelocytes, myelocytes, and promyelocytes. Blood smears from CBCs yielding IG's will be scanned manually for concordance. If this scan disagrees with the automated IG or if promyelocytes are noted, a manual differential will be performed. Immature Gran Absolute 0.00 0.00 - 0.04 x10(3)/mc L [facility] Blood 03/18/2023 2:14 PM EDT 03/18/2023 2:24 PM EDT Narrative Resulting Agency Comment Spec In Lab Magdalena Peralta MD HEMATOLOGY ORDERABLE S [facility] [place] [address] * (ABNORMAL) Hemogram (03/18/2023 2:14 PM EDT) White Blood Cell 3.2(L) 4.0 - 9.5 x10(3)/mc L [facility] Red Blood Cell 3.44(L) 4.00 - 5.21 x10(6)/mc L [facility] Hemoglobin 11.1(L) 11.7 - 15.5 g/dL [facility] Hematocrit 32.9(L) 35.7 - 45.8 % [facility] Mean Cell Volume 95.6(H) 82.6 - 94.4 fL [facility] Mean Cell Hemoglobin 32.3(H) 27.1 - 32.0 pg [facility] Mean Cell Hemoglobin Concentration 33.7 31.7 - 35.0 g/dL [facility] Platelet 144(L) 145 - 357 x10(3)/mc L [facility] RDW Standard Deviation 42.6 37.0 - 46.0 fL [facility] RDW coefficient of variation 12.3 11.5 - 14.1 % [facility] Mean Platelet Volume 9.4 7.6 - 12.9 fL [facility] NRBC% auto 0.0 % [facility] NRBC Absolute 0.000 0.000 - 0.000 x10(3)/mc L [facility] Blood 03/18/2023 2:14 PM EDT 03/18/2023 2:24 PM EDT Narrative Resulting Agency Comment Spec In Lab Magdalena Peralta MD HEMATOLOGY ORDERABLE S Performing Organization Address City/[facility] Co de Phone Number [facility] [place] [address] * (ABNORMAL) Sedimentation rate (03/18/2023 2:14 PM EDT) Sedimentation Rate Automated 68(H) 2 - 39 mm/hr [facility] Comment: Effective July 12, 2019 new capillary photometric technology has resulted in a change in reference ranges. It is recommended that each ESR result be reviewed with its own age appropriate reference range. Blood 03/18/2023 2:14 PM EDT 03/18/2023 2:24 PM EDT Narrative Resulting Agency Comment Spec In Lab Kia Viramontes DO HEMATOLOGY ORDERAB LES Performing Organization Address City/[facility]/ZIP Co de Phone Number [facility] [place] [address] * CRP, acute inflammation (03/18/2023 2:14 PM EDT) C-Reactive Protein 3.0 <=4.9 mg/L [facility] Blood 03/18/2023 2:14 PM EDT 03/18/2023 2:24 PM EDT Narrative Resulting Agency Comment Spec In Lab Kia D Wander DO CHEMISTRY ORDERABL ES Performing Organization Address City/[facility]/ZIP Co de Phone Number [facility] [place] [address] * C3 Complement (03/18/2023 2:14 PM EDT) Complement C3 142 90 - 180 mg/dL [facility] Blood 03/18/2023 2:14 PM EDT 03/18/2023 2:24 PM EDT Narrative Resulting Agency Comment Spec In Lab Kia D Wander DO CHEMISTRY ORDERABL ES Performing Organization Address City/[facility]/ZIP Co de Phone Number [facility] [place] [address] * C4 Complement (03/18/2023 2:14 PM EDT) Complement C4 30 10 - 40 mg/dL [facility] Blood 03/18/2023 2:14 PM EDT 03/18/2023 2:24 PM EDT Narrative Resulting Agency Comment Spec In Lab Kia D Wander DO CHEMISTRY ORDERABL ES Performing Organization Address City/[facility]/ZIP Co de Phone Number [facility] [place] [address] * CK (03/18/2023 2:14 PM EDT) Creatine Kinase 38 0 - 160 unit/L [facility] Blood 03/18/2023 2:14 PM EDT 03/18/2023 2:24 PM EDT Narrative Resulting Agency Comment Spec In Lab Kia Viramontes DO CHEMISTRY ORDERABL ES Performing Organization Address City/[facility]/ZIP Co de Phone Number [facility] [place] [address] * DNA Antibody (Double-Stranded) (03/18/2023 2:14 PM EDT) dsDNA Ab <0.6 <=15.0 IU/mL [facility] Comment: <10 negative 10-15 equivocal >15 positive This dsDNA antibody result was generated using a fluoroenzyme immunoassay on the eBillme 250 analyzer. This quantitative test is designed to detect IgG antibodies directed against double stranded DNA in human serum. The presence of antibodies that recognize dsDNA is a highly specific marker for systemic lupus erythematosus. Please note that as of 05/26/2022 that this testing is performed by the Special Chemistry Laboratory at [facility]. This change in testing location is associated with a change is testing method and reference intervals. Please review the results of this test in association with the posted reference intervals. Blood 03/18/2023 2:14 PM EDT 03/19/2023 7:19 AM EDT Narrative Resulting Agency Comment Spec In Lab Kia Viramontes DO LAB SEND OUT ORDER JODIE Performing Organization Address [facility] Co de Phone Number [facility] [place] [address] * (ABNORMAL) FRANCISCO Ab by IFA (03/18/2023 2:14 PM EDT) FRANCISCO Ab Screen Test ? Result ?Flag ??Unit ??RefValue Antinuclear Ab, HEp-2 ?Positive 1:2560 ??@ ?<1:80 (Negative) ??Substrate, S ? ADDITIONAL INFORMATION --------- ?Method: Immunofluorescence using HEp-2 cellular substrate. ??FRANCISCO Titer: ? 1:2560 ??FRANCISCO Pattern: ? Speckled ?Test Performed by: ?[facility] ?[address] [place] [address] ?Inside Phone Sales: Raymond Chaudhry M.D. Ph.D.; CLIA# [id number] ([id number]) [facility] Blood 03/18/2023 2:14 PM EDT 03/18/2023 3:02 PM EDT Narrative Resulting Agency Comment Spec In Lab Kia Viramontes DO CHEMISTRY ORDERABL ES [facility] [place] [address] * Comprehensive metabolic panel (non-fasting) (03/18/2023 2:14 PM EDT) Glucose 93 65 - 199 mg/dL [facility] Comment:Diabetes: >=200 mg/d L plus symptoms Blood Urea Nitrogen 18 8 - 18 mg/dL [facility] Creatinine 0.99 0.70 - 1.20 mg/dL [facility] Sodium 141 135 - 145 mmol/L [facility] Potassium 4.5 3.5 - 5.0 mmol/L [facility] Comment: Please note: ??Patients with WBC >100,000 may have falsely elevated Potassium levels. ??For accurate Potassium quantification in these patients send serum separator tube (gold top) for subsequent determinations. ??Contact the Clinical Chemistry Laboratory if there are any questions. Chloride 106 98 - 107 mmol/L [facility] Carbon Dioxide 24 22 - 31 mmol/L [facility] Anion Gap 11 5 - 15 mmol/L [facility] Calcium 10.0 8.5 - 10.5 mg/dL [facility] Protein, Total 7.3 6.1 - 8.0 g/dL [facility] Albumin 4.3 3.2 - 5.2 g/dL [facility] Aspartate Aminotransferase 26 0 - 30 unit/L [facility] Alanine Aminotransferase 11 0 - 30 unit/L [facility] Alkaline Phosphatase 91 35 - 105 unit/L [facility] Bilirubin, Total 0.4 0.2 - 1.3 mg/dL [facility] Est Glomerular Filtration Rate 62 >=60 mL/min/1. 73 m?? [facility] Comment: This patient's estimated GFR [...] [facility] Co de Phone Number [facility] [place] [address] documented in this encounter Visit Diagnoses Diagnosis Positive FRANCISCO (antinuclear antibody) Other and unspecified nonspecific immunological findings documented in this encounter Care Teams Energy Sales Broker Relationship Specialty Start Date End Date Magdalena Acosta MD [address] [place] [address] PCP - General Family Medicine 02/05/23 documented as of this encounter
--- OUTSIDE RECORDS SUMMARY | 2024-06-08 14:13 | XMS_ITS | Encounter Summary ---
Author Organization [place] [address] Care Team Providers Care Heart Doctor Name Role Phone Junaid Deborah Shields APRN Primary Care Provider [phone] Encounter Details Date Type Department Care Team (Latest Contact Info) Description 11/09/2022 10:37 AM EDT - 11/09/2022 4:53 PM EDT Hospital Encounter [place] [address] Nitesh Escobedo MD [facility] [place] [address] Aortic valve stenosis, etiology of cardiac valve [...] Center 02/05/2023 2:30 PM Marek Bonilla MD [facility] New Medications to be Picked Up None For questions regarding this document or issues relating to this hospitalization on the Medical Service, please contact your inpatient physician through the [facility] Speech Pathology Assistant . Issues afterhours and on weekends [...] MD - 11/09/2022 11:20 AM EDT . [facility] Interventional Cardiology Adult Pre-Procedure H&P Update: Cardiac Catheterization Purnima Thacker [id number] 1955 Chief Complaint: BONILLA HPI: Purnima Thacker [...] Marrero MD Interventional Cardiology 11/09/22 11:43 AM [facility] Pager: [phone] documented in this encounter Plan of Treatment Upcoming Encounters Date Type Department Care Team (Late st Contact Info) Description 06/23/2024 2:00 PM EST Office Visit Hematology [place] [address] Markel Borjas MD [facility] DR [place] [address] 11/02/2024 12:00 PM EDT Appointment [place] [phone] 11/02/2024 1:00 PM EDT Office [place] [phone] Magdalena Peralta MD [facility] [address] 03/01/2025 4:15 PM EDT Office Visit Dermatology at [place] [address] [place] [phone] Marek Bonilla MD [address], [place] [address] documented as of this encounter Procedures Procedure Name Priority Date/Time Associated Diagnosis Comments CARDIAC CATHETERIZATION Routine 11/10/19 23 1:05 PM EDT Aortic valve stenosis, etiology of cardiac valve disease unspecified Cath [facility] Left Heart Cath & Arts W/Inj & Angio Img S&I ([id number]) 11/09/2022 11:51 AM EDT Aortic valve stenosis, [...] ? Procedure Date: 11/09/2022 ? A #: [id number] ? Primary Physician: Nitesh Escobedo ? Case #: [id number] ? File Name: [id number] ? Catheterization Order Number: [id number] ? [facility] ? Final Report [place], [place] ? Patient Name: ? Purnima M. Kirstie ? ID#: ?[id number] ? : ?1955 ? Procedure Date: ? [...] 457 ms MUSE SYSTEM Calculated P [place] 44 degrees MUSE SYSTEM Calculated R [place] 33 degrees MUSE SYSTEM Calculated T [place] 30 degrees MUSE SYSTEM INTERPRETATION Sinus rhythm Occasional Premature ventricular complexes Otherwise normal ECG When compared with ECG of 21-SEP-2016 12:26, Premature ventricular complexes are now Present AR interval has decreased Nonspecific T wave abnormality has replaced inverted T waves in Inferior leads I personally reviewed the tracing and edited the fellows interpretation Confirmed by fellow MD Anitha, Carissa ([id number]) on 11/09/2022 6:17:28 PM Confirmed by Elsa Linares MD ([id number]) on 11/10/2022 3:47:14 PM MUSE SYSTEM 11/09/2022 [...] MD) documented in this encounter Care Teams Heart Doctor Relationship Specialty Start Date End Date Deborah Quiroga, PHYSICAL THER PCP - General Family Medicine 03/24/16 02/04/23 documented as of this encounter
--- OUTSIDE RECORDS SUMMARY | 2024-06-08 14:13 | XMS_ITS | Encounter Summary ---
Author Organization [place] [address] Care Team Providers Care Risk Manager Name Role Phone Magdalena Acosta MD Primary Care Provider [phone] Encounter Details Date Type Department Care Team (Late st Contact Info) Description 02/17/2023 2:00 PM EDT Office Visit [place] [address] Alirio Esparza MD Aortic valve stenosis, etiology [...] EST Office Visit Hematology and Oncology at [place] [phone] Markel Borjas MD [facility] [address] [place] [address] 11/02/2024 12:00 PM EDT Appointment Pulmonology at [place] [address] 11/02/2024 1:00 PM EDT Office Visit Rheumatology at [place] [phone] Magdalena Peralta MD [facility] [place] [address] 03/01/2025 4:15 PM EDT Office Visit Dermatology at [address] [place] [phone] Marek Bonilla MD [address] [place] [address] documented as of this encounter Visit Diagnoses Diagnosis Aortic valve stenosis, etiology of cardiac valve disease unspecified documented in this encounter Care Teams Risk Manager Relationship Specialty Start Date End Date Magdalena Acosta MD [address] [place] [address] PCP - General Family Medicine 02/05/23 documented as of this encounter
--- OUTSIDE RECORDS SUMMARY | 2024-06-08 14:13 | XMS_ITS | Encounter Summary ---
Author Organization [facility] [place] [facility] [place] [address] Care Team Providers Care Laborer Petroleum Refinery Name Role Phone Magdalena Acosta MD Primary Care Provider [phone] Encounter Details Date Type Department Care Team [...] EST Office Visit Hematology and Oncology at [place] [phone] Markel Borjas MD [facility] [address] [place] [address] 11/02/2024 12:00 PM EDT [place] [address] 11/02/2024 1:00 PM EDT Office [place] [address] Magdalena Peralta MD [facility] [place] [address] 03/01/2025 4:15 PM EDT Office Visit Dermatology at [place] [address] [place] [address] Marek Bonilla MD [address], [place] [address] documented as of this encounter Visit Diagnoses Not on filedocumented in this encounter Care Teams Laborer Petroleum Refinery Relationship Specialty Start Date End Date Magdalena Acosta MD [address] [place] [address] PCP - General Family Medicine 02/05/23 documented as of this encounter
--- OUTSIDE RECORDS SUMMARY | 2024-06-08 14:14 | XMS_ITS | Encounter Summary ---
[place] [address] Care Team Providers Care Licensed Sales Producer Name Role Phone Ashley Quirogan Cornelius ANURAG Primary Care Provider [phone] Encounter Details Date Type Department Care Team (Late st Contact Info) Description 02/07/2020 Telephone Hematology [place] [address] Ellen Rios RN Social History [...] 02/07/2020 12:59 PM EDT Message received from service secretary: Injection/Infusion Referral Services to be provided for pt are: CBC only at [facility]- Pt will go by 02/27 Orders faxed to [phone]). Spoke with pt. She will call [facility] directly to schedule a time that works for her. documented in this encounter Plan of Treatment Upcoming Encounters Date Type Department Care Team (Late Contact Info) Description 06/23/2024 2:00 PM EST Office Visit Hematology [place] [address] Markel Borjas MD [facility] DR HEMATOLOGY [place] [address] 11/02/2024 12:00 PM EDT Appointment Pulmonology at [place] [address] 11/02/2024 1:00 PM EDT Office Visit Rheumatology at [place] [phone] Magdalena Peralta MD [facility] [place] [address] 03/01/2025 4:15 PM EDT Office Visit Dermatology at [place] [address] [facility] [place] [phone] Marek Bonilla MD [address], [place] [address] documented as of this encounter Visit Diagnoses Not on filedocumented in this encounter Care Teams Licensed Sales Producer Relationship Specialty Start Date End Date Deborah Quiroga APRN PCP - General Family Medicine 03/24/16 02/04/23 documented as of this encounter
--- OUTSIDE RECORDS SUMMARY | 2024-06-08 14:14 | XMS_ITS | Encounter Summary ---
[place] [address] Care Team Providers Care Graduate School Dean Name Role Phone Junaid Deborah Shields APRN Primary Care Provider [phone] Reason for Visit * Reason Comments Follow-up Encounter Details Date Type Department Care Team (Late st Contact Info) Description 01/10/2021 4:30 PM EDT Office Visit Dermatology at [place] [address] [place] [address] Marek Bonilla MD [address] [facility], [address] DERMATOLOGY [place], [place] [phone] Rosacea Social History Tobacco Use Types Packs/Day [...] cutaneous and ocular 2. Previously told by jackerman that she had corneal tears from her [...] 3 refills. Will call this in her [facility] in [place] 3. Continue metronidazole 0.75% gel applying once [...] Visit Hematology [place] [address] Markel Borjas MD [facility] DR HEMATOLOGY [place] [address] 11/02/2024 12:00 PM EDT Appoint[place] [address] 11/02/2024 1:00 PM EDT Office [place] [address] Magdalena Peralta MD [facility] [place] [address] 03/01/2025 4:15 PM EDT Office Visit Dermatology at [place] [address] [place] [address] Marek Bonilla MD [address], [place] [address] documented as of this encounter Visit Diagnoses Diagnosis Rosacea documented in this encounter Care Teams Graduate School Dean Relationship Specialty Start Date End Date Deborah Quiroga APRN PCP - General Family Medicine 03/24/16 02/04/23 documented as of this encounter
--- OUTSIDE RECORDS SUMMARY | 2024-06-08 14:14 | XMS_ITS | Encounter Summary ---
[place] [address] Care Team Providers Care Decontamination Technician Name Role Phone Ashley Quirogazac Shields APRN Primary Care Provider [phone] Reason for Visit * Reason Onset Date Comments Results 12/03/2016 Encounter Details Date Type Department Care Team (Late st Contact Info) Description 12/03/2016 Telephone Hematology [place] [address] Yudith Valentine RN Results Social [...] EDT RN received call from Maddy at [facility] reporting critical WBC at 1.61, and ANC of 0.5. She will fax the full results to this office for director of patient safety notified DR Borjas of above results documented in this encounter Plan of Treatment Upcoming Encounters Date Type Department Care Team (Late st Contact Info) Description 06/23/2024 2:00 PM EST Office Visit Hematology [place] [address] Markel Borjas MD [facility] DR HEMATOLOGY [place] [address] 11/02/2024 12:00 PM EDT Appointment Pulmonology at [place] [phone] 11/02/2024 1:00 PM EDT Office [place] [address] Magdalena Peralta MD [facility] [place] [address] 03/01/2025 4:15 PM EDT Office Visit Dermatology at [place] [address] [facility] [place] [address] Marek Bonilla MD [address], [place] [address] documented as of this encounter Visit Diagnoses Not on filedocumented in this encounter Care Teams Decontamination Technician Relationship Specialty Start Date End Date Deborah Quiroga APRN PCP - General Family Medicine 03/24/16 02/04/23 documented as of this encounter
--- OUTSIDE RECORDS SUMMARY | 2024-06-08 14:14 | XMS_ITS | Encounter Summary ---
Author Organization [facility] Address [facility] [place] [address] Care Team Providers Care Energy Professional Name Role Phone Junaid Deborah Shields APRN Primary Care Provider [phone] Encounter Details Date Type Department Care Team (Late st Contact Info) Description 03/04/2020 External Results Hematology and Oncology at [place] [phone] TherBhumi [place] Social History Tobacco Use Types [...] EST Office Visit Hematology and Oncology at [place] [phone] Markel Borjas MD [facility] [place] [address] 11/02/2024 12:00 PM EDT Appointment Pulmonology at [place] [phone] 11/02/2024 1:00 PM EDT Office Visit Rheumatology at [place] [phone] Magdalena Peralta MD [facility] [place] [address] 03/01/2025 4:15 PM EDT Office Visit Dermatology at [place] [address] [place] [address] Marek Bonilla MD [address], [place] [address] documented as of this encounter Procedures Procedure [...] on filedocumented in this encounter Care Teams Energy Professional Relationship Specialty Start Date End Date Deborah Quiroga APRN PCP - General Family Medicine 03/24/16 02/04/23 documented as of this encounter
--- OUTSIDE RECORDS SUMMARY | 2024-06-08 14:14 | XMS_ITS | Encounter Summary ---
Author Organization [facility] Address [facility] [place] [address] Care Team Providers Care Loop Puller Name Role Phone Ashley Quirogazac Shields APRN Primary Care Provider [phone] Encounter Details Date Type Department Care Team (Late st Contact Info) Description 02/06/2020 Orders Only Hematology [place] [address] Markel Borjas MD [facility] [place] [address] Neutropenia, unspecified type Social History Tobacco Use [...] Visit Hematology [place] [address] Markel Borjas MD [facility] [place] [address] 11/02/2024 12:00 PM EDT Appointment [place] [address] 11/02/2024 1:00 PM EDT Office [place] [address] Magdalena Peralta MD [facility] [place] [address] 03/01/2025 4:15 PM EDT Office Visit Dermatology at [place] [address] [facility] [place] [address] Marek Bonilla MD [address], [place] [address] documented as of this encounter Visit Diagnoses Diagnosis Neutropenia, unspecified type documented in this encounter Care Teams Loop Puller Relationship Specialty Start Date End Date Deborah Quiroga APRN PCP - General Family Medicine 03/24/16 02/04/23 documented as of this encounter
--- OUTSIDE RECORDS SUMMARY | 2024-06-08 14:14 | XMS_ITS | Encounter Summary ---
Author Organization [facility] [place] [address] Care Team Providers Care Relief Cook Name Role Phone Ashley Quirogazac Shields APRN Primary Care Provider [phone] Encounter Details Date Type Department Care Team (Late st Contact Info) Description 06/18/2017 External Results Hematology and Oncology at [place] [phone] Alexandrea [place] RN Neutropenia, unspecified type Social [...] EST Office Visit H[place]ology [place] [address] Markel Borjas MD [facility] DR HEMATOLOGY [place] [address] 11/02/2024 12:00 PM EDT Appoint[place] [address] 11/02/2024 1:00 PM EDT Office Visit Rheumatology at [place] [phone] Magdalena Peralta MD [facility] [place] [address] 03/01/2025 4:15 PM EDT Office Visit Dermatology at [place] [address] [place] [address] Marek Bonilla MD [address], [place] [address] documented as of this encounter Procedures Procedure Name Priority Date/Time Associated Diagnosis Comments CBC (WITH DIFF) Routine 06/11/2017 1:19 PM EST Neutropenia, unspecified type COMPREHENSIVE METABOLIC PANEL Routine 06/11/2017 1:19 PM EST Neutropenia, unspecified type documented in this encounter Results * Comprehensive metabolic panel (non-fasting) (06/11/2017 1:19 PM EST) Pathologist [facility] Blood Urea Nitrogen 13 7 - 18 [...] type documented in this encounter Care Teams Relief Cook Relationship Specialty Start Date End Date Deborah Quiroga, TENSILE TESTER PCP - General Family Medicine 03/24/16 02/04/23 documented as of this encounter
--- OUTSIDE RECORDS SUMMARY | 2024-06-08 14:14 | XMS_ITS | Encounter Summary ---
[place] [address] Care Team Providers Care Montessori Lead Teacher Name Role Phone Ashley Quirogan Cornelius ANURAG Primary Care Provider [phone] Reason for Visit * Reason Comments Acrochordon Rosacea Encounter Details Date Type Department Care Team (Late st Contact Info) Description 12/05/2020 3:00 PM EDT Office Visit Dermatology at [address] [address] Marek Bonilla MD [address] [facility], [place] [address] Inflamed acrochordon Social History Tobacco Use Types [...] EST Office Visit [place]ology [place] [address] Markel Borjas MD [facility] DR HEMATOLOGY [place] [address] 11/02/2024 12:00 PM EDT Appointment Pulmonology at [place] [address] 11/02/2024 1:00 PM EDT Office [place] [address] Magdalena Peralta MD [facility] [place] [address] 03/01/2025 4:15 PM EDT Office Visit Dermatology at [address] [place] [address] Marek Bonilla MD [address] [facility] [facility] [address] [facility] [address], [place] [address] documented as of this encounter Visit Diagnoses Diagnosis Inflamed acrochordon Unspecified hypertrophic and atrophic condition of skin documented in this encounter Care Teams Montessori Lead Teacher Relationship Specialty Start Date End Date Deborah Quiroga APRN PCP - General Family Medicine 03/24/16 02/04/23 documented as of this encounter
--- OUTSIDE RECORDS SUMMARY | 2024-06-08 14:14 | XMS_ITS | Encounter Summary ---
Author Organization [facility] [place] [address] Care Team Providers Care Laundry Bag Punch Operator Name Role Phone Winter Quiroga APRN Primary Care Provider [phone] Encounter Details Date Type Department Care Team (Late st Contact Info) Description 06/05/2021 Interpretation Only [address] [address] Winter Quiroga APRN [address] [phone] Social History Tobacco Use Types Packs/Day Years [...] EST Office Visit [place]ematology [place] [address] Markel Borjas MD [facility] DR HEMATOLOGY [place] [address] 11/02/2024 12:00 PM EDT Appointment [place] [address] 11/02/2024 1:00 PM EDT Office [place] [address] Magdalena Peralta MD [facility] [place] [address] 03/01/2025 4:15 PM EDT Office Visit Dermatology at [place] [address] [place] [address] Marek Bonilla MD [address] [facility] [facility] [address], [place] [address] documented as of this encounter Procedures Procedure Name Priority Date/Time Associated Diagnosis Comments MAMMO SCREENING CAD AND CATRACHITO BILATERAL Routine 06/05/2021 11:42 AM EDT documented in this encounter Results * Mammo Screening Cad and Catrachito Bilateral (06/05/2021 11:42 AM EDT) PT CLASS O DH RAD ADMITDTTM DH RAD PT DH RAD INFO [id number]^EVERET T^WINTER^E DH RAD EXAM DESC MADDSCTO^BREAST SCREEN [...] director that requested your imaging first. ? Electronically signed by: Rocael Villatoro MD, [facility] ([phone]), at 06/05/2021 1:27 PM Narrative 06/05/2021 1:27 [...] signed by: Rocael Villatoro MD, [facility]([phone]), at 06/05/2021 1:27 PM Winter Quiroga APRN IMG MAMMO ORDERABLE S documented in this encounter Visit Diagnoses Not on filedocumented in this encounter Care Teams Laundry Bag Punch Operator Relationship Specialty Start Date End Date Winter Quiroga APRN PCP - General Family Medicine 03/24/16 02/04/23 documented as of this encounter
--- OUTSIDE RECORDS SUMMARY | 2024-06-08 14:14 | XMS_ITS | Encounter Summary ---
Author Organization [facility] Address [facility] [place] [address] Care Team Providers Care Wing Scorer Name Role Phone Ashley Quirogan Cornelius ANURAG Primary Care Provider +1 [phone] Encounter Details Date Type Department Care Team (Late st Contact Info) Description 07/21/2017 Orders Only Hematology and Oncology at [place] [phone] Alexandrea [place] RN Other neutropenia Social History [...] EST Office Visit Hematology and Oncology at [place] [phone] Markel Borjas MD [facility] DR HEMATOLOGY [place] [address] 11/02/2024 12:00 PM EDT Appointment Pulmonology at [place] [phone] 11/02/2024 1:00 PM EDT Office Visit Rheumatology at [place] [phone] Magdalena Peralta MD [facility] [place] [address] 03/01/2025 4:15 PM EDT Office Visit Dermatology at [place] [address] [facility] [place] [address] Marek Bonilla MD [address] [facility] [facility] [address], [place] [address] documented as of this encounter Visit Diagnoses Diagnosis Other neutropenia documented in this encounter Care Teams Wing Scorer Relationship Specialty Start Date End Date Deborah Quiroga APRN PCP - General Family Medicine 03/24/16 02/04/23 documented as of this encounter
--- OUTSIDE RECORDS SUMMARY | 2024-06-08 14:14 | XMS_ITS | Encounter Summary ---
[place] [address] Care Team Providers Care Career Discovery Teacher Name Role Phone Ashley Quirogan Cornelius ANURAG Primary Care Provider [phone] Reason for Visit * Reason Onset Date Comments Medical Care Coordination 07/27/2017 Encounter Details Date Type Department Care Team (Late st Contact Info) Description 07/27/2017 Telephone Hematology [place] [address] Alexandrea [place] RN Medical Care Coordination Social [...] executive secretary: Injection/Infusion Referral Call placed to [facility] @ [phone] Spoke w/ [employer] Services to be provided for pt are: CBC/CMP DONE Q6 MONTHS X2 STARTING NOVEMBER 2017 TECH confirmed they would provide services to pt - I CALLED PT, LM. Pt orders faxed to [phone] documented in this encounter Plan of Treatment Upcoming Encounters Date Type Department Care Team (Late st Contact Info) Description 06/23/2024 2:00 PM EST Office Visit Hematology [place] [address] Markel Borjas MD [facility] DR [place] [address] 11/02/2024 12:00 PM EDT Appointment Pulmonology at [place] [address] 11/02/2024 1:00 PM EDT Office Visit Rheumatology at [place] [address] Magdalena Peralta MD [facility] [place] [address] 03/01/2025 4:15 PM EDT Office Visit Dermatology at [place] [address] [place] [address] Marek Bonilla MD [address], [place] [address] documented as of this encounter Visit Diagnoses Not on filedocumented in this encounter Care Teams Career Discovery Teacher Relationship Specialty Start Date End Date Deborah Quiroga APRN PCP - General Family Medicine 03/24/16 02/04/23 documented as of this encounter
--- OUTSIDE RECORDS SUMMARY | 2024-06-08 14:14 | XMS_ITS | Encounter Summary ---
Author Organization Formerly [facility] [place] [address] Care Team Providers Care Disulfurizer Tender Name Role Phone Ashley Quirogazac Shields APRN Primary Care Provider [phone] Reason for Referral * Consultation (Routine) - Specialty Diagnoses / Procedures Referred By Contact Referred To Contact Cardiac Rehabilitation Diagnoses S/P AVR Alirio Esparza MD [facility] [address] [place] [address] Cardiac Rehab, [address] [place] [address] Referral ID Status Reason Start Date Expiration Date V isits Requested Visits Authorized [id number] Consult, Test & Treat 09/25/2016 03/24/2017 36 36 Reason for Visit * Auth/Cert Specialty Diagnoses / Procedures Referred By Contkrystle t Referred To Contact Diagnoses Aortic stenosis Procedures PRO REPLACE AORT VALV, PROSTH VALV @REPLACE AORTIC VALVE, OPEN, W\CPB, W\PROSTHETIC VALVE (WRVU 41.32) Referral ID Status Reason Start Date Expiration Date Visits Re quested Visits Authorized [id number] 1 1 Encounter Details Date Type Department Care Team (Latest Contact Info) Description 09/21/2016 6:08 AM EST - 09/25/2016 4:33 PM EST Hospital Encounter Intermediate [place] [id number] Alirio Esparza MD Aortic valve stenosis, unspecified [...] Patient Age: 61 y.o. Birthdate: 1955 Language: Panamanian Race: White Ethnicity: Not nor Admit Date: 09/21/2016 Discharge Date: 09/25/2016 Attending Physician: Alirio Esparza MD Follow-up Recommendations for Providers: Please continue routine management of cardiovascular risk factors including blood pressure, lipids,glucose, etc. Please note any changes to medications. Patient to follow-up with PCP, Deborah Quiroga APRN, in 1-2 weeks. Patient to follow-up with Medical Appointment Scheduler, Dr. Anetlmo Burrell, in two weeks. Patient to follow-up with Cardiac Surgery, Dr. Alirio Esparza, to be scheduled for before 10/19/2016, with CXR, EKG, and Echo. Inpatient Provider Contact Information: [facility] Section of Cardiac Surgery [facility] [address] FAX [phone] Discharge Diagnoses (Hospital Problems) Primary Diagnoses: Secondary [...] 41.32) performed by lAirio Esparza MD at [facility] MAIN OR ??? Pro aortoplas for supravalv sten N/A 09/21/2016 @AORTOPLASTY FOR SUPRAVALVULAR STENOSIS (WRVU 29.33) performed by Alirio Esparza MD at [facility] MAIN [...] Course: Purnima Thacker was admitted to [facility] on 09/21/2016 via the Same Day [...] Alirio Esparza and/or the Cardiac Surgery Physician It Network Architect Team may be reached at . Antibiotic [...] to your dentist. Please refer to the [place] Heart [...] Dr. Alirio Jones. You may use a Euclid Track or treadmill but avoid any pulling [...] fat, low cholesterol, [place] Heart Association Diet. Driving: No driving until [...] AM Markel Borjas MD [facility] [phone] Future Orders Complete By Expires Echocardiogram Transthoracic([place]) [DEB075 Custom] 10/18/2016 (Approximate) 09/18/2017 Process Instructions: If the Echocardiogram is to be PERFORMED in a location other than [place]--STOP and order [id number], Echocardiogram South/External. Scheduling Instructions: Questions: Is a Bubble Study requested?: No Does the patient have Congenital Heart Disease?: No Does patient require sedation?: None GA rationale: Should this service be billed to the research sponsor?: EKG 12 Lead [EKG1 Custom] 10/18/2016 (Approximate) 09/25/2017 Process Instructions: Scheduling Instructions: Questions: Which location will this be performed?: [place] Is a rhythm strip needed?: No If EKG Reason is Pre-op Evaluation, indicate diagnosis for surgery.: Should this service be billed to the research sponsor?: XR Chest PA & Lateral (Generic) [[id number] Custom] 10/18/2016 (Approximate) 09/25/2017 Process Instructions: Scheduling Instructions: Questions: Where will study be performed?: [facility]- Radiology Portable exam?: No Reason for exam and clinical history: s/p AVReplacement, patch annuloplasty 1 month f/u Other pertinent information: Stat read required?: Date of injury if applicable: Requested Time: Referral to Cardiac Rehab [[id number] Custom] As directed Process Instructions: If no progress note charted, please enter Clinical details in comments. Scheduling Instructions: Questions: My question or request is: s/p AVR. Cardiac rehab at [facility] Referral to Home Health - at DISCHARGE [[id number] CPT(R)] As directed Process Instructions: Scheduling Instructions: Comments: DOCUMENTATION FOR VNA SERVICES (INCLUDING THOSE PATIENTS WITH MEDICARE COVERAGE REQUIRING HOME VNA SERVICES AND/OR HOSPICE SERVICES) PATIENT'S LOCATION: Purnima Magalie Kirstie [address] [place] [phone] (home) No relevant phone numbers on file. Student Success Advisor's Name: self In discussion with the attending physician, it is certified that this patient is under their care and that they, or a Nurse Practitioner, or Physician It Network Architect who is working directly with them, hada [...] for services as follows: HOME HEALTH AGENCY: [facility] PHONE: [phone] FAX: [phone] RN orders: Cardiopulmonary assessment, incisional assessment, assess [...] issues please call the Cardiac SurgeryOffice at [phone] FOR MEDICARE ONLY: In discussion with the [...] noted. Questions: Agency name and contact information: [facility] Patient location post discharge: home What services are requested: Registered Nurse Physical Therapy Occupational Therapy Start date: Responsible MD post discharge contact info: Arrangements for VNA/home care: As above. VN RN OR PCP TO PLEASE REMOVE CHEST TUBE SUTURES ON OR AFTER 09/30/16 Signed: Crispin Aranda PA-C 09/25/2016 [facility] Section of Cardiac Surgery [facility] [address] FAX [phone] Date: 09/25/2016 CC: ANURAG Alford Caryn E, APRN [address] [place] [address] documented in this encounter Discharge Instructions * [...] Alirio Esparza and/or the Cardiac Surgery Physician It Network Architect Team may be reached at . Antibiotic [...] to your dentist. Please refer to the [place] [facility] [...] Dr. Alirio Jones. You may use a Euclid Track or treadmill but avoid any pulling [...] fat, low cholesterol, [place] Heart Association Diet. Driving: No driving until [...] PM EST Cardiac Surgery Progress Note: ID: [id number] S/p AVR, patch aortoplasty POD#2. PMH of [...] Gas) No results found for: PHART, PO2ART, XKD2NQM Assessment/Plan: TPW out this am. (+) BM. [...] Signed: Crispin Aranda PA-C 09/24/2016 Team pager: [phone]; [phone] after 5pm [facility] Section of Cardiac Surgery * Leonor Henson, BASE CLOTH INSPECTOR - 09/23/2016 10:48 AM EST Cardiac Surgery Progress Note: ID: [id number] s/p AVR, patch aortoplasty POD#2. PMH of [...] Gas) No results found for: PHART, PO2ART, JWN2RWV Assessment/Plan: s/p AVR, patch aortoplasty POD#2. PMH of Neutropenia, HLD, HTN, Depression, obesity, . Transferred from [facility] yesterday and doing well. Pathway. [...] on rounds. Signed: Leonor Henson APRN [facility] Section of Cardiac Surgery Date: 09/23/2016 * Nico Palacios PA - 09/22/2016 9:56 AM EST Cardiac Surgery Progress Note: ID: [id number] s/p AVR, patch aortoplasty POD#1. PMH of [...] NT, ND, soft. Ext: Moves all extremities. [place], well perfused. Incisions: C/D/I Tubes/Lines/Drains: PIV, richi, [...] Surgeon on rounds. Signed: EKATERINA KIM [facility] Section of Cardiac Surgery Date: 09/22/2016 [...] left pleural effusion. T/L/D Al ETT CVL [place] CT Pacing wires ASSESSMENT, MANAGEMENT, and DECISION [...] with outpatient services Lalitha Cohen SPTA Pager: [phone] Inpatient Physical Therapy Patient status, treatment interventions, and goals discussed with student. I am in agreement with all details and associated flowsheet rows as documented and was present for all aspects of the patient treatment session. Nerykatrina Jaramillo, [facility] Pager [phone] Problem: Acute Rehab Services Goal & Intervention Plan Goal: Bed Mobility Goal Stand Alone Therapy Goal Outcome: Ongoing (Interventions Implemented as Appropriate) 09/22/16 16109/25/16 09 Bed Mobility Goal Bed Mobility Goal, Time to Achieve 4 days -- Bed Mobility Goal, Activity Type scoot/bridge;supine to sit/sit to supine -- Bed Mobility Goal, Kathleen Level independent -- Bed Mobility Goal, Additional [...] Achieve 4 days -- Gait Training Goal, Kathleen Level independent -- Gait Training Goal, Distance [...] health Lalitha Cohen [facility] Pager: [phone] Inpatient Physical Therapy Patient status, treatment interventions, and goals discussed with student. I am in agreement with all details and associated flowsheet rows as documented and was present for all aspects of the patient treatment session. Nery Jaramillo, [facility] Pager [phone] Problem: Acute Rehab Services Goal & Intervention Plan Goal: Bed Mobility Goal Stand Alone Therapy Goal Outcome: Ongoing (Interventions Implemented as Appropriate) 09/22/16 16109/23/16 1412 Bed Mobility Goal Bed Mobility Goal, Time to Achieve 4 days -- Bed Mobility Goal, Activity Type scoot/bridge;supine to sit/sit to supine -- Bed Mobility Goal, Kathleen Level independent -- Bed Mobility Goal, Additional [...] Achieve 4 days -- Gait Training Goal, Kathleen Level independent -- Gait Training Goal, Distance [...] days -- Transfer Training Goal, Activity Type tvw-dw-vlebi/kqequ-en-rvg;wmo-aa-bkqis/exueg-zf-nte -- Transfer Train Goal, Kathleen Level independent -- Transfer Training Goal, Additional Goal abides sternal precautions -- Transfer Training Goal, Outcome -- goal met * Consult Note - Jana Crenshaw RN - 09/23/2016 9:41 AM EST [facility] CARDIAC REHABILITATION Purnima Thacker [...] Another Service: (cardiac rehab) NICOLE HERNANDEZ, PT Pager:[phone] Inpatient Physical Therapy Problem: Acute Rehab Services Goal & Intervention Plan Goal: Bed Mobility Goal Stand Alone Therapy Goal Outcome: Ongoing (Interventions Implemented as Appropriate) 09/22/16 1611 Bed Mobility Goal Bed Mobility Goal, Time to Achieve 4 days Bed Mobility Goal, Activity Type scoot/bridge;supine to sit/sit to supine Bed Mobility Goal, Kathleen Level independent Bed Mobility Goal, Additional Goal able to abide sternal precautions during transfers Goal: Gait Training Goal Stand Alone Therapy Goal Outcome: Ongoing (Interventions Implemented as Appropriate) 09/22/16 1611 Gait Training Goal Gait Training Goal, Date Established 09/22/16 Gait Training Goal, Time to Achieve 4 days Gait Training Goal, Kathleen Level independent Gait Training Goal, Distance to Achieve ascend and descends 2 steps independently Goal: Goal Transfer Training Stand Alone Therapy Goal Outcome: Ongoing (Interventions Implemented as Appropriate) 09/22/16 1611 Goal Transfer Training Transfer Training Goal, Time to Achieve 4 days Transfer Training Goal, Activity Type zuu-gv-zknaz/kpfre-ej-jsb;ylv-eb-zbojs/antqn-gn-eua Transfer Train Goal, Kathleen Level independent Transfer Training Goal, Additional Goal [...] of completing AD's at home, chooses her nscxom-lt-buf, Martha Thacker (home) for her [facility], 2nd choice in friend, Nitesh Leroy [place], [place] Current Coping/Education/Information Needs: patient sitting [...] who live close by, [place], and her njfiul-yx-uug Martha Thacker who she has chosen to be her DPOAH. Also has a friend Nitesh Leroy who lives in [place], [place], also her DPOAH choice. Behavioral Health History: none on file in e[facility] Substance Use/Abuse: none on file in e[facility] Other Pertinent/Service Specific Information: none Health/Prescription Coverage: Primary Insurance: [employer] Secondary Insurance: none Prescription Coverage: yes, per patient no issues Preferred Pharmacy: ?? Other: none Primary Care Provider: Deborah Quiroga, BASE CLOTH INSPECTOR [phone] Patient/Caregiver Goals of Treatment: per medical team recommendations at discharge for CT surgery Potential Needs for Transition of Care: Rehab/SNF: TBD Home Health: TBD DME: no Dialysis: no Community Resources: non3 Transportation: ride home with a friend Other: none Anticipated Barriers to Discharge/Special Considerations: none anticipated at this time Plan: patient will need VNA services at discharge. The patient/fuels sales representative has been provided a list of Home Health Agencies/DME vendors which servetheir preferred geographic area. A letter describing our affiliations was reviewed with them and they were educated about their right to choose where referrals are placed. Patient requests referral to: [facility] [employer]. PHONE: [phone] FAX: [phone] Expected date of discharge: Fri/Sat? CM called VNA to confirm referral, talked with VALDO Bunn/intake who stated she was familiar w/patient & would monitor her progress through curaspan. Referral routed to the Web Ui Designer for matching with agency/vendor and to provide any required information. A member of the Care Management team will continue to monitor progress, follow for continuity of care and assist with transition of care planning. Amanda Moreno RN Pager: [phone] * Op Note - Alirio Esparza MD - 09/21/2016 12:53 PM EST 09/23/2016 Purnima Thacker 1955 [id number] Preoperative Diagnosis: Symptomatic aortic stenosis Postoperative Diagnosis: Symptomatic aortic stenosis Procedure: Aortic valve replacement: Bovine Pericardial 25 mm Surgeon: Alirio Esparza M.D. It Network Architect: Philip BALL Anesthesia: General endotracheal anesthesia Drains: [...] Operative Note Patient Name: Purnima Thacker : [id number] MR#: [id number] Case Date: 09/21/2016 Surgeon: Surgeon(s) and Role: * Alirio Esparza MD - Primary * Nico Palacios PA - Physician It Network Architect Preoperative diagnosis: Postoperative diagnosis: Procedure(s) (LRB): @REPLACE [...] EST Office Visit Hematology and Oncology at [place] [address] Markel Borjas MD [facility] [address] HEMATOLOGY [place] [address] 11/02/2024 12:00 PM EDT Appointment Pulmonology at [place] [address] 11/02/2024 1:00 PM EDT Office Visit Rheumatology at [place] [address] Magdalena Peralta MD [facility] [place] [address] 03/01/2025 4:15 PM EDT Office Visit Dermatology at [place] [address] [facility] [place] [address] Marek Bonilla MD [address] [facility] [place] [address] Scheduled Orders Name Type Priority Associated Diagnoses [...] IMPLANTABLE DEVICES SCAN 09/26/2016 12:00 AM EST WELDING SUPERVISOR SCAN 09/26/2016 12:00 AM EST POTASSIUM [...] SCAN EXT O RDR/RSLT * SCAN DOC: WELDING SUPERVISOR (09/26/2016 12:00 AM EST) Anatomical Region [...] CHEMISTRY ORDERABLE S [facility] [place] [address] * (ABNORMAL) Differential, Automated (09/24/2016 9:56 AM EST) Neutrophil % 76.8 % [facility] Neutrophil Absolute 7.79(H) 1.70 - 6.10 x10(3)/mc L [facility] Lymph % 11.1 % [facility] Lymphocytes Abs 1.1 0.9 - 3.2 x10(3)/[facility] LABORATORY Monocyte % 8.5 % [facility] Monocyte Abs 0.9 0.3 - 0.9 x10(3)/[facility] Eos % 0.5 % [facility] Eosinophils Abs 0.0 0.0 - 0.4 x10(3)/[facility] Basophil % 0.2 % [facility] Baso Absolute 0.0 0.0 - 0.1 x10(3)/[facility]OR[facility]ORY Immature Gran % 2.90 % [facility] Comment: Immature granulocytes(IG's)percentage and absolute count will include metamyelocytes, myelocytes, and promyelocytes. Blood smears from CBCs yielding IG's will be scanned manually for concordance. If this scan disagrees with the automated IG or if promyelocytes are noted, a manual differential will be performed. Immature Gran Absolute 0.29(H) 0.00 - 0.04 x10(3)/[facility] LAB[facility]ORY Blood specimen (specimen) 09/24/2016 9:56 AM EST 09/24/2016 10:04 AM EST Narrative Resulting Agency Comment Spec In Lab Alirio Esparza MD HEMATOLOGY ORDERABL ES Performing Organization Address City/State/[facility] Co de Phone Number [facility] [place] [address] * (ABNORMAL) Hemogram (09/24/2016 9:56 AM EST) White Blood Cell 10.1(H) 4.0 - 9.5 x10(3)/[facility] LABORATORY Red Blood Cell 2.87(L) 4.00 - 5.21 x10(6)/[facility] Hemoglobin 9.4(L) 11.7 - [...] [facility] NRBC% auto 1.1 % [facility] NRBC Absolute 0.110(H) 0.000 - 0.000 x10(3)/mc L [facility] Blood specimen (specimen) 09/24/2016 9:56 AM EST 09/24/2016 10:04 AM EST Narrative Resulting Agency Comment Spec In Lab Alirio Esparza MD HEMATOLOGY ORDERABL ES [facility] [place] [address] * (ABNORMAL) Basic Metabolic Panel (non-fasting) (09/24/2016 [...] were not validated at [facility]. Results from pediatric [...] the following links into your internet browser. [email or web address] Blood specimen (specimen) 09/24/2016 9:56 AM EST 09/24/2016 10:04 AM EST Narrative Resulting Agency Comment Spec In Lab Alirio Esparza MD CHEMISTRY ORDERABLE S [facility] [place] [address] * XR Chest PA & Lateral (Generic) [...] CHEMISTRY ORDERABLE S [facility] [place] [address] * POCT Glucose (09/22/2016 8:17 AM EST) Glucose, POC 131 65 - 199 mg/dL [facility] Comment: Supplemental ranges: <140 mg/dL before meals <180 mg/dL all other times of the day Blood specimen (specimen) 09/22/2016 8:17 AM EST 09/22/2016 8:17 AM EST Alirio Esparza MD POINT OF CARE TEST ORDERABLES Performing Organization Address [facility] de Phone Number [facility] [place] [address] * POCT Glucose (09/22/2016 4:01 AM EST) Glucose, POC 135 65 - 199 mg/dL [facility] Comment: Supplemental ranges: <140 mg/dL before meals <180 mg/dL all other times of the day Blood specimen (specimen) 09/22/2016 4:01 AM EST 09/22/2016 4:01 AM EST Alirio Esparza MD POINT OF CARE TEST ORDERABLES Performing Organization Address [facility] de Phone Number [facility] [place] [address] * Scan, Peripheral Blood (09/22/2016 4:00 AM EST) Pathologist [facility] Plat estimate Normal [facility] RBC Morphology Abnormal [facility] Macrocyte 1-5 /HPF [facility] Plat, Giant Less than 1 /HPF [facility] Blood specimen (specimen) 09/22/2016 4:00 AM EST 09/22/2016 4:34 AM EST Narrative Resulting Agency Comment Spec In Lab Alirio Esparza MD HEMATOLOGY ORDERABL ES Performing Organization Address [facility] Co de Phone Number [facility] [place] [address] * Electrolytes panel (09/22/2016 4:00 AM EST) Pathologist [facility] Sodium 145 135 - 145 mmol/L [facility] [...] CHEMISTRY ORDERABLE S [facility] [place] [address] * (ABNORMAL) Differential, Automated (09/22/2016 4:00 AM EST) Neutrophil % 70.9 % [facility] Neutrophil Absolute 5.33 1.70 - 6.10 x10(3)/mc L [facility] Lymph % 9.1 % [facility] Lymphocytes Abs 0.7(L) 0.9 - 3.2 x10(3)/mc L [facility] Monocyte % 18.0 % [facility] Monocyte Abs 1.4(H) 0.3 - 0.9 x10(3)/mc L [facility] Eos % 0.0 % [facility] Eosinophils Abs 0.0 0.0 - 0.4 x10(3)/mc L [facility] Basophil % 0.1 % [facility] [...] HEMATOLOGY ORDERABL ES [facility] [place] [address] * (ABNORMAL) Hemogram (09/22/2016 4:00 AM EST) [...] RDW Standard Deviation 44.0 37.0 - 46.0 [facility] RDW coefficient of variation 12.6 11.5 - 14.1 % [facility] Mean Platelet Volume 9.3 7.6 - 12.9 [facility] NRBC% auto 0.3 % [facility] NRBC Absolute 0.020(H) 0.000 - 0.000 x10(3)/ L [facility] Blood specimen (specimen) 09/22/2016 4:00 AM EST 09/22/2016 4:34 AM EST Narrative Resulting Agency Comment Spec In Lab Alirio Esparza MD HEMATOLOGY ORDERABL ES Performing Organization Address [facility] de Phone Number [facility] [place] [address] * (ABNORMAL) Cardiac Enzymes (09/22/2016 4:00 AM EST) Troponin-T 0.13(H) <=0.03 ng/mL [facility] Comment: 0.03 ng/mL: Represents the 99th percentile upper reference limit for normals. >0.03 ng/mL: Elevated cardiac troponin T level indicative of myocardial damage. Diagnosis of acute, evolving or recent PR requires a typical rise and gradual fall [...] consensus document of the Joint Society of Cardiology/[place] College of Cardiology Committee for the redefinition of myocardial infarction. ??Journal of the [place] College of Cardiology 2000; 36: 959-969] Creatine Kinase 338(H) 0 - 160 unit/L [facility] Blood specimen (specimen) 09/22/2016 4:00 AM EST 09/22/2016 4:34 AM EST Narrative Resulting Agency Comment Spec In Lab Alirio Esparza MD CHEMISTRY ORDERABLE S Performing Organization Address [facility] Co de Phone Number [facility] [place] [address] * (ABNORMAL) Glucose, fasting (09/22/2016 4:00 AM [...] of Diabetes Mellitus, Position Statement from the [place] Diabetes Association. ??Diabetes Care, Volume 33, Supplement 1, Aug 2009 Blood specimen (specimen) 09/22/2016 4:00 AM EST 09/22/2016 4:34 AM EST Narrative Resulting Agency Comment Spec In Lab Alirio Esparza MD CHEMISTRY ORDERABLE S [facility] [place] [address] * (ABNORMAL) Creatinine (09/22/2016 4:00 AM EST) Creatinine 0.69(L) 0.70 - 1.20 mg/dL [facility] Comment: Please note that the pediatric reference intervals supplied above were not validated at [facility]. Results from pediatric [...] the following links into your internet browser. [email or web address] Blood specimen (specimen) 09/22/2016 4:00 AM EST 09/22/2016 4:34 AM EST Narrative Resulting Agency Comment Spec In Lab Alirio Esparza MD CHEMISTRY ORDERABLE S Performing Organization Address [facility] Co de Phone Number [facility] [place] [address] * BUN (09/22/2016 4:00 AM EST) Blood Urea Nitrogen 10 8 - 18 mg/dL [facility] Blood specimen (specimen) 09/22/2016 4:00 AM EST 09/22/2016 4:34 AM EST Narrative Resulting Agency Comment Spec In Lab Alirio Esparza MD CHEMISTRY ORDERABLE S Performing Organization Address [facility] Phone Number [facility] [place] [address] * POCT Glucose (09/21/2016 9:59 PM EST) Glucose, POC 146 65 - 199 mg/dL [facility] Comment: Supplemental ranges: <140 mg/dL before meals <180 mg/dL all other times of the day Blood specimen (specimen) 09/21/2016 9:59 PM EST 09/21/2016 9:59 PM EST Alirio Esparza MD POINT OF CARE TEST ORDERABLES Performing Organization Address [facility] Co de Phone Number [facility] [place] [address] * POCT Glucose (09/21/2016 7:26 PM EST) Glucose, POC 152 65 - 199 mg/dL [facility] Comment: Supplemental ranges: <140 mg/dL before meals <180 mg/dL all other times of the day Blood specimen (specimen) 09/21/2016 7:26 PM EST 09/21/2016 7:26 PM EST Alirio Esparza MD POINT OF CARE TEST ORDERABLES Performing Organization Address [facility] Co de Phone Number [facility] [place] [address] * POCT Glucose (09/21/2016 6:00 PM EST) Glucose, POC 146 65 - 199 mg/dL [facility] Comment: Supplemental ranges: <140 mg/dL before meals <180 mg/dL all other times of the day Blood specimen (specimen) 09/21/2016 6:00 PM EST 09/21/2016 6:00 PM EST Alirio Esparza MD POINT OF CARE TEST ORDERABLES [facility] [place] [address] * (ABNORMAL) BLOOD GAS 2 ARTERIAL (09/21/2016 4:42 PM EST) [facility] pH, Arterial 7.35(L) 7.35 - 7.45 [facility] PF Ratio Art 270 [facility] Blood specimen (specimen) 09/21/2016 4:42 PM EST 09/21/2016 4:42 PM EST Alirio Esparza MD POINT OF CARE TEST ORDERABLES Performing Organization Address City/[facility]/ZIP Co de Phone Number [facility] [place] [address] * POCT Glucose (09/21/2016 4:07 PM EST) [...] [place] [facility] [place]/ZIP Co de Phone Number [facility] [place] [address] * (ABNORMAL) Hemoglobin (09/21/2016 4:05 PM EST) Hemoglobin 9.9(L) 11.7 - 15.5 gm/dL [facility] Blood specimen (specimen) 09/21/2016 4:05 PM EST 09/21/2016 4:20 PM EST Narrative Resulting Agency Comment Spec In Lab Alirio Esparza MD HEMATOLOGY ORDERABL ES Performing Organization Address [facility] de Phone Number [facility] [place] [address] * Potassium (09/21/2016 4:05 PM EST) Potassium [...] MD CHEMISTRY ORDERABLE S Performing Organization Address [facility] de Phone Number [facility] [place] [address] * POCT Glucose (09/21/2016 2:52 PM EST) Glucose, POC 117 65 - 199 mg/dL [facility] Comment: Supplemental ranges: <140 mg/dL before meals <180 mg/dL all other times of the day Blood specimen (specimen) 09/21/2016 2:52 PM EST 09/21/2016 2:52 PM EST Alirio Esparza MD POINT OF CARE TEST ORDERABLES Performing Organization Address [facility] Co de Phone Number [facility] [place] [address] * POCT Glucose (09/21/2016 1:51 PM EST) [...] [place] [facility] [place]/ZIP Co de Phone Number [facility] [place] [address] * POCT Glucose (09/21/2016 12:54 PM EST) Glucose, POC 128 65 - 199 mg/dL [facility] Comment: Supplemental ranges: <140 mg/dL before meals <180 mg/dL all other times of the day Blood specimen (specimen) 09/21/2016 12:54 PM EST 09/21/2016 12:54 PM EST Alirio Esparza MD POINT OF CARE TEST ORDERABLES Performing Organization Address [facility] Co de Phone Number [facility] [place] [address] * EKG 12 Lead (09/21/2016 12:26 PM EST) Ventricular rate 87 BPM MUSE SYSTEM Atrial Rate 87 BPM MUSE SYSTEM P-R Interval 256 ms MUSE SYSTEM QRS Duration 90 ms MUSE SYSTEM Q-T Interval 406 ms MUSE SYSTEM QTC Calculated (Bezet) 488 ms MUSE SYSTEM Calculated P [place] 24 degrees MUSE SYSTEM Calculated R [place] 21 degrees MUSE SYSTEM Calculated T [place] -5 degrees MUSE SYSTEM INTERPRETATION Sinus rhythm [...] Esparza MD ECG ORDERABLES Performing Organization Address City/[facility] Co de Phone [...] course of the esophagus and below the vqvbf-gv-heth. There is a right IJ PA catheter [...] the course of theesophagus and below the dmxgy-un-suge. There is a right IJ PA catheter [...] [facility] PF Ratio Art 356 [facility] Blood specimen (specimen) 09/21/2016 12:20 PM EST 09/21/2016 12:20 PM EST Alirio Esparza MD POINT OF CARE TEST ORDERABLES [facility] [place] [address] * (ABNORMAL) BLOOD GAS 2 ARTERIAL (09/21/2016 [...] [facility] PF Ratio Art 313 [facility] Temp Art 36.7 Celsius [facility] Blood specimen (specimen) 09/21/2016 10:54 AM EST 09/21/2016 10:54 AM EST Alirio Esparza MD POINT OF CARE TEST ORDERABLES Performing Organization Address [facility]/ZIP Co de Phone Number [facility] [place] [address] * Thrombin time (09/21/2016 10:50 AM EST) [...] MD HEMATOLOGY ORDERABLE S Performing Organization Address [facility] Co de Phone Number [facility] [place] [address] * Fibrinogen (09/21/2016 10:50 AM EST) Fibrinogen [...] MD HEMATOLOGY ORDERABLE S Performing Organization Address [facility]/ZIP Co de Phone Number [facility] [place] [address] * APTT (09/21/2016 10:50 AM EST) Partial Thromboplastin Time 32 25 - 35 sec [facility] Comment: The recommended therapeutic range for full dose, unfractionated heparin at [facility] is 80 ? 114 [...] ORDERABLE S Performing Organization Address City/[facility]/ZIP Co de Phone Number [facility] [place] [address] * (ABNORMAL) Prothrombin Time (09/21/2016 10:50 AM [...] HEMATOLOGY ORDERABLE S [facility] [place] [address] * (ABNORMAL) Hemogram (09/21/2016 10:50 AM EST) [...] [facility] NRBC% auto 0.1 % [facility] NRBC Absolute 0.020(H) 0.000 - 0.000 x10(3)/mc L [facility] Blood specimen (specimen) 09/21/2016 10:50 AM EST 09/21/2016 10:56 AM EST Narrative Resulting Agency Comment Spec In Lab Luis Enrique Quarles MD HEMATOLOGY ORDERABLE S [facility] [place] [address] * Prepare Platelets, Apheresis (09/21/2016 10:30 AM EST) Dispensed? Yes [facility] Blood specimen (specimen) 09/21/2016 10:30 AM EST 09/21/2016 10:28 AM EST Alirio Esparza MD BLOOD BANK PRODUCT ORDERABLES [facility] [place] [address] * (ABNORMAL) BLOOD GAS 2 ARTERIAL (09/21/2016 10:05 AM EST) pH, Arterial 7.33(L) 7.35 - 7.45 [facility] PCO2, Arterial 54(Critic al) 35 - 45 mmHg [facility] Comment:Noted by instrument designer. PO2, Arterial 218(H) 85 - 104 [...] [facility] Comment: Noted by instrument designer. Please note: Patients with WBC >100,000 [...] CARE TEST ORDERABLES [facility] [place] [address] * (ABNORMAL) BLOOD GAS 2 ARTERIAL (09/21/2016 9:44 AM EST) pH, Arterial 7.22(Criti gabrielle) 7.35 - 7.45 [facility] Comment:Noted by instrument designer. PCO2, Arterial 70(Critica l) 35 - 45 mmHg [facility] Comment:Noted by instrument designer. PO2, Arterial 224(H) 85 - 104 [...] OF CARE TEST ORDERABLES Performing Organization Address [facility] Co de Phone Number [facility] [place] [address] * (ABNORMAL) Hemoglobin (09/21/2016 9:42 AM EST) Hemoglobin 7.2(L) 11.7 - 15.5 gm/dL [facility] Blood specimen (specimen) 09/21/2016 9:42 AM EST 09/21/2016 9:51 AM EST Narrative Resulting Agency Comment Spec In Lab Alirio Esparza MD HEMATOLOGY ORDERABL ES Performing Organization Address [facility] Co de Phone Number [facility] [place] [address] * Platelet count (09/21/2016 9:42 AM EST) Platelet 159 145 - 357 x10(3)/mc L [facility] Immature Plt % 1.6 0.0 - 7.4 % [facility] Comment: Limitation of the Immature Platelet Fraction (IPF)-May be less reliable when the platelet count is less than 37d509/uL due to statistical imprecision. The IPF value [...] in a decreased state of production. References: [employer] The Clinical Value of the Immature Platelet Fraction (IPF) in Cell Recovery Document Number 10-1143 12/2010 [employer] The Role of the Immature Platelet Fraction (IPF) in the Differential Diagnosis of Thrombocytopenia, Document MKT-10-1209 V05 P012/13 Blood specimen (specimen) 09/21/2016 9:42 AM EST 09/21/2016 9:51 AM EST Narrative Resulting Agency Comment Spec In Lab Alirio Esparza MD HEMATOLOGY ORDERABL ES [facility] [place] [address] * (ABNORMAL) Hematocrit (09/21/2016 9:42 AM EST) [facility] Hematocrit 21.6(L) 35.7 - 45.8 % [facility] Comment: This result has been called to MICHELLE ALEJANDRE by Serjio Frazier on 09 21 2016 at 0957, and has been read back. Blood specimen (specimen) 09/21/2016 9:42 AM EST 09/21/2016 9:51 AM EST Narrative Resulting Agency Comment Spec In Lab Alirio Esparza MD HEMATOLOGY ORDERABL ES [facility] [place] [address] * Fibrinogen (09/21/2016 9:42 AM EST) [facility] Fibrinogen 219 180 - 510 mg/dL [facility] [...] HEMATOLOGY ORDERABL ES [facility] [place] [address] * (ABNORMAL) BLOOD GAS 2 ARTERIAL (09/21/2016 [...] CARE TEST ORDERABLES [facility] [place] [address] * Surgical Pathology Report (09/21/2016 9:09 AM EST) Final Diagnosis [id number] ?Location: The signing pathologist has (i) examined [...] [place] [facility] [place] [address] * Specimen to Pathology (surgical or derm) (09/21/2016 9:09 AM EST) AP Specimen 09/21/2016 9:09 AM EST 09/21/2016 9:09 AM EST Narrative [facility] - 09/21/2016 9:09 AM EST Specimen requisition ordered. ??Separate Pathology report to follow Alirio Esparza MD PATHOLOGY/CYTOLOGY ORDERABLES Performing Organization Address City/[facility]/[place] [address] * (ABNORMAL) BLOOD GAS 2 ARTERIAL (09/21/2016 [...] de Phone Number [facility] [place] [address] * (ABNORMAL) BLOOD GAS 2 ARTERIAL (09/21/2016 [...] [facility] PF Ratio Art 298 [facility] Temp Art 35.6 Celsius [facility] Blood specimen (specimen) 09/21/2016 8:18 AM EST 09/21/2016 8:18 AM EST Alirio Esparza MD POINT OF CARE TEST ORDERABLES [facility] [place] [address] * Prepare RBC (09/21/2016 7:05 AM EST) Dispensed? Yes [facility] Blood specimen (specimen) 09/21/2016 7:05 AM EST 09/21/2016 7:02 AM EST Alirio Esparza MD BLOOD BANK PRODUCT ORDERABLES [facility] [place] [address] * POCT Glucose (09/21/2016 6:42 AM EST) [...] [place] [facility] [place]/ZIP Co de Phone Number [facility] [place] [address] documented in this encounter Visit Diagnoses Diagnosis [...] dose on Wed09/21/16 at 1230, Until Discontinued, [place] teeth, Routine Given 09/25/2016 9:40 AM [...] if phenyleprine and/or vasopressin ineffective.Call pager # [phone] if initiated., Routine Rate/Dose Change 09/21/2016 2:27 [...] L/min/M2. Maximum volume 2 L. Call supervisor hide house for additional fluid orders: pager #[phone]. Rate/Dose Verify 09/22/2016 10:00 AM EST 10 [...] 0600)1600 (Due - Provider: Kendall Martínez [facility]) aspirin chewable tablet 81 mg(Linked Group [...] dose on Wed09/21/16 at 1230, Until Discontinued, [place] teeth, Routine 0900 (Not Given - [...] Routine documented in this encounter Care Teams Disulfurizer Tender Relationship Specialty Start Date End Date Deborah Quiroga APRN PCP - General Family Medicine 03/24/16 02/04/23 documented as of this encounter
--- OUTSIDE RECORDS SUMMARY | 2024-06-08 14:14 | XMS_ITS | Encounter Summary ---
Author Organization [facility] [place] [address] Care Team Providers Care Rac Specialist Name Role Phone Winter Quiroga APRN Primary Care Provider +1- [phone] Encounter Details Date Type Department Care Team (Late st Contact Info) Description 06/05/2021 Interpretation Only [address] [phone] Winter Quiroga APRN [address] [phone] Social History Tobacco Use Types Packs/Day Years [...] Hematology [place] [phone] Markel Borjas MD [facility] [address] [place] [address] 11/02/2024 12:00 PM EDT Appointment [place] [phone] 11/02/2024 1:00 PM EDT Office [place] [address] Magdalena Peralta MD [facility] [place] [address] 03/01/2025 4:15 PM EDT Office Visit Dermatology at [place] [address] [place] [address] Marek Bonilla MD [address], [place] [address] documented as of this encounter Procedures Procedure Name Priority Date/Time Associated Diagnosis Comments DXA CENTRAL SPINE, HIP, AND/OR WHOLE BODY (GENERIC) Routine 06/05/2021 11:58 AM EDT documented in this encounter Results * DXA Central Spine, Hip, and/or Whole Body (Generic) (06/05/2021 11:58 AM EDT) PT CLASS O RAD ADMITDTTM RAD PT RAD INFO [id number]^E VERETT^WINTER ^E RAD EXAM DESC XDXAC^DEXA SCAN [...] signed by: Rocael Villatoro MD, [facility] ([phone]), at 06/05/2021 12:00 PM Narrative 06/05/2021 12:00 [...] home administrator that requested your imaging first. Electronically signed by: Rocael Vlilatoro MD, [facility]([phone]), at 06/05/2021 12:00 PM Winter Quiroga APRN IMGerman DEXA ORDERABLES documented in this encounter Visit Diagnoses Not on filedocumented in this encounter Care Teams Rac Specialist Relationship Specialty Start Date End Date Winter Quiroga APRN PCP - General Family Medicine 03/24/16 02/04/23 documented as of this encounter
--- OUTSIDE RECORDS SUMMARY | 2024-06-08 14:14 | XMS_ITS | Encounter Summary ---
Author Organization [facility] Address [facility] [place] [address] Care Team Providers Care Strategic Planning Director Name Role Phone Deborah Quiroga APRN Primary Care Provider Encounter Details Date Type Department Care Team (Late st Contact Info) Description 06/18/2017 11:00 AM EST Office Visit Hematology [place] [address] Markel Borjas MD [facility] [address] HEMATOLOGY [place] [address] Neutropenia, unspecified type Social History Tobacco Use [...] 11:00 AM EST Hematology Outpatient Clinic [facility] Hematology Outpatient Consult Note CC: 60 [...] TOUCH PREP, CLOT SECTION, CORE ??BIOPSY); [OSR# [id number], COLLECTED 06/23/2016, 19 SLIDES]: ?1. ??Normocellular marrow [...] a clonal lymphoproliferative or myeloproliferative disorder (OSR# [id number]) Chromosome analysis on the marrow aspirate revealed [...] working the same job and participating in [employer] patients. Past Medical/Surgical History: 1. Leukopenia -element of neutropenia, as noted above 2. Aortic Stenosis -severe -AVR surgery 3. Hypercholesterolemia 4. Depression 5. Hypertension 6. 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 Extremities: No edema. Labs: Hgb= 13 Mydd=929 ANC= 0.6 Imaging As above - reviewed [...] EST Office Visit Hematology and Oncology at [place] [phone] Markel Borjas MD [facility] [address] [place] [address] 11/02/2024 12:00 PM EDT Appointment Pulmonology at [place] [address] 11/02/2024 1:00 PM EDT Office Visit Rheumatology at [place] [address] Magdalena Peralta MD [facility] [place] [address] 03/01/2025 4:15 PM EDT Office Visit Dermatology at [address] [place] [phone] Marek Bonilla MD [address], [place] [address] documented as of this encounter Visit Diagnoses Diagnosis Neutropenia, unspecified type documented in this encounter Care Teams Strategic Planning Director Relationship Specialty Start Date End Date Deborah Quiroga APRN PCP - General Family Medicine 03/24/16 02/04/23 documented as of this encounter
--- OUTSIDE RECORDS SUMMARY | 2024-06-08 14:14 | XMS_ITS | Encounter Summary ---
[place] [address] Care Team Providers Care Enzyme Chemist Name Role Phone Junaid Deborah Shields APRN Primary Care Provider [phone] Encounter Details Date Type Department Care Team (Late st Contact Info) Description 10/20/2016 11:20 AM EDT Office [place] [phone] Alirio Esparza MD S/P AVR Social History [...] all of her postoperative tests done at [facility]. Her echo shows a well-seated valve. Her EF, for some reason, was read as in the 45% to 50% range. She had a normal EF to start. I think that will need to be repeated at [facility]. She has no perivalve leak. Her mean [...] should continue to see Dr. Burrell, her pit laborer at [facility]. cc: Dr. Burrell documented in this encounter Plan of Treatment Upcoming Encounters Date Type Department Care Team (Late st Contact Info) Description 06/23/2024 2:00 PM EST Office Visit H[place] [address] Markel Borjas MD [facility] HEMATOLOGY [place] [address] 11/02/2024 12:00 PM EDT Appoint[place] [address] 11/02/2024 1:00 PM EDT Office [place] [address] Magdalena Peralta MD [facility] DR [place] [address] 03/01/2025 4:15 PM EDT Office Visit Dermatology at [place] [address] [place] [phone] Marek Bonilla MD [address], [place] [address] documented as of this encounter Visit Diagnoses Diagnosis S/P AVR Heart valve replaced by other means documented in this encounter Care Teams Enzyme Chemist Relationship Specialty Start Date End Date Deborah Quiroga APRN PCP - General Family Medicine 03/24/16 02/04/23 documented as of this encounter
--- OUTSIDE RECORDS SUMMARY | 2024-06-08 14:14 | XMS_ITS | Encounter Summary ---
Author Organization [facility] [place] [address] Care Team Providers Care Contracting Officer Name Role Phone Winter Quiroga APRN Primary Care Provider [phone]- [phone] Encounter Details Date Type Department Care Team (Late st Contact Info) Description 06/05/2021 Interpretation Only [address] [phone] Winter Quiroga APRN [address] [phone] Social History Tobacco Use Types Packs/Day Years [...] EST Office Visit [place]ematology [place] [phone] Markel Borjas MD [facility] [address] [place] [address] 11/02/2024 12:00 PM EDT [place]oint[place] [phone] 11/02/2024 1:00 PM EDT Office [place] [address] Magdalena Peralta MD [facility] [place] [address] 03/01/2025 4:15 PM EDT Office Visit Dermatology at [place] [address] [place] [address] Marek Bonilla MD [address], [place] [address] documented as of this encounter Procedures Procedure Name Priority Date/Time Associated Diagnosis Comments MAMMO SCREENING CAD BILATERAL Routine 06/05/2021 11:42 AM EDT documented in this encounter Results * Mammo Screening Cad Bilateral (06/05/2021 11:42 AM EDT) PT CLASS O RAD ADMITDTTM RAD PT RAD INFO [id number]^EV ERETT^WINTER^E RAD EXAM DESC MADDSC^SCREEN MAMMO BL [...] who have questions please contact the health children's zoo caretaker that requested your imaging first. ? Electronically signed by: Rocael Villatoro MD, [facility] ([phone]), at 06/05/2021 1:27 PM Narrative 06/05/2021 1:27 [...] patients who have questions please contactthe health children's zoo caretaker that requested your imaging first. Electronically signed by: Rocael Villatoro MD, [facility]([phone]), at 06/05/2021 1:27 PM Winter Quiroga APRN IMG MAMMO ORDERABLE S documented in this encounter Visit Diagnoses Not on filedocumented in this encounter Care Teams Contracting Officer Relationship Specialty Start Date End Date Winter Quiroga APRN PCP - General Family Medicine 03/24/16 02/04/23 documented as of this encounter
--- OUTSIDE RECORDS SUMMARY | 2024-06-08 14:14 | XMS_ITS | Encounter Summary ---
Author Organization [facility] Address [facility] [place] [address] Care Team Providers Care Bellstand Attendant Name Role Phone Ashley Quirogazac Shields APRN Primary Care Provider [phone] [phone] Encounter Details Date Type Department Care Team (Late st Contact Info) Description 11/11/2020 Refill Dermatology at [address] [phone] Taylor Malone, MANAGER LINE Social History Tobacco Use Types Packs/Day Years [...] Visit Hematology [place] [address] Markel Borjas MD [facility] [address] [place] [address] 11/02/2024 12:00 PM EDT Appointment [place] [address] 11/02/2024 1:00 PM EDT Office [place] [address] Magdalena Peralta MD [facility] [place] [address] 03/01/2025 4:15 PM EDT Office Visit Dermatology at [place] [address] [place] [phone] Marek Bonilla MD [address], [place] [address] documented as of this encounter Visit Diagnoses Not on filedocumented in this encounter Care Teams Bellstand Attendant Relationship Specialty Start Date End Date Deborah Quiroga APRN PCP - General Family Medicine 03/24/16 02/04/23 documented as of this encounter
--- OUTSIDE RECORDS SUMMARY | 2024-06-08 14:14 | XMS_ITS | Encounter Summary ---
Author Organization [facility] Address [facility] [place] [address] Care Team Providers Care Micromatic Hone Operator Name Role Phone Deborah Quiroga APRN Primary Care Provider +1 [phone] Encounter Details Date Type Department Care Team (Late st Contact Info) Description 03/01/2020 11:30 AM EDT Office Visit [place] [phone] Patrick Borjas MD [facility] DR HEMATOLOGY [place] [address] Neutropenia, unspecified type Social History Tobacco Use [...] AM EDT Hematology Outpatient Clinic [facility] Hematology Outpatient Consult Note CC: 60 year [...] TOUCH PREP, CLOT SECTION, CORE ??BIOPSY); [OSR# [id number], COLLECTED 06/23/2016, 19 SLIDES]: ?1. 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 Extremities: No edema. Labs: Hgb= 12.4 Iogf=876 ANC= 2.5 Imaging As above - reviewed [...] EST Office Visit [place] [address] Patrick Borjas MD [facility] DR HEMATOLOGY [place] [address] 11/02/2024 12:00 PM EDT [place] [address] 11/02/2024 1:00 PM EDT [place] [address] Magdalena Peralta MD [facility] DR RHEUMATOLOGY [place] [address] 03/01/2025 4:15 PM EDT Office Visit Dermatology at [place] [address] [facility] [place] [address] Marek Bonilla MD [address], [place] [address] documented as of this encounter Visit Diagnoses Diagnosis Neutropenia, unspecified type documented in this encounter Care Teams Micromatic Hone Operator Relationship Specialty Start Date End Date Deborah Quiroga APRN PCP - General Family Medicine 03/24/16 02/04/23 documented as of this encounter
--- OUTSIDE RECORDS SUMMARY | 2024-06-08 14:14 | XMS_ITS | Encounter Summary ---
Author Organization [facility] Address [facility] [place] [address] Care Team Providers Care Manager Assessment Name Role Phone Junaid, Deborah Shields APRN Primary Care Provider +1 [phone] Reason for Visit * Reason Comments Schedule Office Case Pain right leg Encounter Details Date Type Department Care Team (Late st Contact Info) Description 12/11/2016 9:00 AM EDT Office Visit [place]ology [place] [address] Markel Borjas MD [facility] [address] [place] [address] Neutropenia, unspecified type Social History Tobacco Use [...] 12/11/2016 9:00 AM EDT Hematology Outpatient Clinic [facility] Hematology Outpatient Consult Note CC: 60 [...] TOUCH PREP, CLOT SECTION, CORE ??BIOPSY); [OSR# [id number], COLLECTED 06/23/2016, 19 SLIDES]: ?1. ??Normocellular marrow [...] a clonal lymphoproliferative or myeloproliferative disorder (OSR# [id number]) Chromosome analysis on the marrow aspirate revealed [...] [facility] in [facility] department Family History: No [...] intact. Extremities: No edema. Labs: Hgb= 13 Mrtp=286 ANC= 0.5 Imaging As above - reviewed [...] Visit [place] [address] Markel Borjas MD [facility] [address] [place] [address] 11/02/2024 12:00 PM EDT [place] [address] 11/02/2024 1:00 PM EDT Office [place] [address] Magdalena Peralta MD [facility] [place] [address] 03/01/2025 4:15 PM EDT Office Visit Dermatology at [place] [address] [place] [address] Mraek Bonilla MD [address], [place] [address] documented as of this encounter Results * [...] Performing Organization Address City/[facility] [address]/ZIP Co de Phone Number EXTERNAL LAB * [...] documented in this encounter Care Teams Manager Assessment Relationship Specialty Start Date End Date Deborah Quiroga APRN PCP - General Family Medicine 03/24/16 02/04/23 documented as of this encounter
--- OUTSIDE RECORDS SUMMARY | 2024-06-08 14:14 | XMS_ITS | Encounter Summary ---
Author Organization [facility] Address [facility] [place] [address] Care Team Providers Care Wharf Tender Head Name Role Phone Deborah Quiroga APRN Primary Care Provider +1- [phone] Encounter Details Date Type Department Care Team (Latest Contact Info) Description 10/14/2016 - 10/14/2016 11:59 PM EDT Hospital Encounter Radiology Library at [facility] [place] [address] Alirio Esparza MD Pain Discharge Disposition: Home [...] EST Office Visit Hematology [place] [address] Markel Borjas MD [facility] [address] HEMATOLOGY [place] [address] 11/02/2024 12:00 PM EDT Appointment [place] [address] 11/02/2024 1:00 PM EDT Office [place] [address] Magdalena Peralta MD [facility] [place] [address] 03/01/2025 4:15 PM EDT Office Visit Dermatology at [place] [address] [facility] [place] [address] Marek Bonilla MD [address], [place] [address] documented as of this encounter Procedures Procedure [...] FILM LIBRARY OR DERABLES Performing Organization Address City/State/[facility] Co de Phone Number [place], [place] documented in this encounter Visit Diagnoses Diagnosis Pain Generalized pain documented in this encounter Care Teams Wharf Tender Head Relationship Specialty Start Date End Date Deborah Quiroga, SYRUP MIXER PCP - General Family Medicine 03/24/16 02/04/23 documented as of this encounter
--- OUTSIDE RECORDS SUMMARY | 2024-06-08 14:14 | XMS_ITS | Encounter Summary ---
Author Organization [facility] [place] [address] Care Team Providers Care Pulvi Mixer Operator Name Role Phone Ashley Quirogan Sylvia ANURAG Primary Care Provider +1 [phone] Reason for Visit * Reason Comments Skin Check Encounter Details Date Type Department Care Team (Late st Contact Info) Description 11/11/2020 10:45 AM EDT Office Visit Dermatology at [address] [place] [address] Marek Bonilla MD [address] [facility], [address] DERMATOLOGY [place], [place] [phone] Rosacea; Acrochordon Social History Tobacco Use Types [...] Discussed the possibility of getting this through [employer] or from the [facility] pharmacy if necessary. She has not yet [...] EST Office Visit Hematology [place] [address] Markel Borjas MD [facility] [place] [address] 11/02/2024 12:00 PM EDT Appointment [place] [address] 11/02/2024 1:00 PM EDT Office Visit [place] [address] Magdalena Peralta MD [facility] [place] [address] 03/01/2025 4:15 PM EDT Office Visit Dermatology at [place] [address] [facility] [place] [address] Marek Bonilla MD [address], [place] [address] documented as of this encounter Visit Diagnoses Diagnosis Rosacea Acrochordon Unspecified hypertrophic and atrophic condition of skin documented in this encounter Care Teams Pulvi Mixer Operator Relationship Specialty Start Date End Date Deborah Quiroga, CATALOGUE AND SPECIAL PRODUCTS MANAGER PCP - General Family Medicine 03/24/16 02/04/23 documented as of this encounter
--- OUTSIDE RECORDS SUMMARY | 2024-06-08 14:14 | XMS_ITS | Encounter Summary ---
Author Organization [facility] Address [facility] Erika becerra [place] [id number] Care Team Providers Care Casing Worker Name Role Phone Ashley Quirogan Cornelius ANURAG Primary Care Provider +1 [phone] Encounter Details Date Type Department Care Team (Late st Contact Info) Description 12/04/2016 External Results Hematology and Oncology at [place] [phone] Teresa Dodson RN Social History Tobacco Use [...] EST Office Visit Hematology and Oncology at [place] [phone] Markel Borjas MD [facility] [place] [address] 11/02/2024 12:00 PM EDT Appointment Pulmonology at [place] [phone] 11/02/2024 1:00 PM EDT Office Visit Rheumatology at [place] [phone] Magdalena Peralta MD [facility] [place]UMAT[place] [address] 03/01/2025 4:15 PM EDT Office Visit Dermatology at [place] [address] [place] [address] Marek Bonilla MD [address], [place] [address] documented as of this encounter Procedures Procedure Name Priority Date/Time Associated Diagnosis Comments CBC (WITH DIFF) Routine 12/03/2016 11:35 AM EDT COMPREHENSIVE METABOLIC PANEL Routine 12/03/2016 11:35 AM EDT documented in this encounter Results * (ABNORMAL) Comprehensive metabolic panel (non-fasting) (12/03/2016 11:35 AM EDT) Glucose 85(Vegetable Trimmer al Lab) Blood Urea Nitrogen 11(Vegetable Trimmer al Lab) Creatinine 0.93(Exte rnal Lab) Sodium 140(Exter nal Lab) Potassium 4.2(Exter nal Lab) Chloride 104(Exter nal Lab) Calcium 10.0(Exte rnal Lab) Protein, Total 8.1(Exter nal Lab) Albumin 3.5(Exter nal Lab) Bilirubin, Total 0.25(Exte rnal Lab) Alkaline Phosphatase 96(Vegetable Trimmer al Lab) Aspartate Aminotransferase 18(Vegetable Trimmer al Lab) Alanine Aminotransferase 21(Vegetable Trimmer al Lab) Blood specimen (specimen) 12/03/2016 11:35 AM EDT Historical Provider CHEMISTRY ORDERAB LES * (ABNORMAL) CBC (with Diff) (12/03/2016 11:35 AM EDT) White Blood Cell 1.61(EXTER NAL/ABN) 4.4 - 10.8 Hemoglobin 13.0(Exter nal Lab) Hematocrit 39.8(Exter nal Lab) Platelet 248(Vegetable Trimmer al Lab) Neutrophil Absolute (ANC) - Automated 0.5(BILL PEDDLER AL/ABN) Blood specimen (specimen) 12/03/2016 11:35 AM EDT Historical Provider HEMATOLOGY ORDERA BLES documented in this encounter Visit Diagnoses Not on filedocumented in this encounter Care Teams Casing Worker Relationship Specialty Start Date End Date Deborah Quiroga, HUMAN CAPITAL MANAGER PCP - General Family Medicine 03/24/16 02/04/23 documented as of this encounter
--- OUTSIDE RECORDS SUMMARY | 2024-06-08 14:14 | XMS_ITS | Encounter Summary ---
Author Organization [facility] Address [facility] [place] [address] Care Team Providers Care Timber Supervisor Name Role Phone Ashley Quirogazac Shields APRN Primary Care Provider +1 [phone] Encounter Details Date Type Department Care Team (Late st Contact Info) Description 01/13/2021 Refill Dermatology at [address] [address] Taylor Malone, TOWEL SEWER Social History Tobacco Use Types Packs/Day Years [...] EST Office Visit Hematology [place] [address] Markel Borjas MD [facility] [address] HEMATOLOGY [place] [address] 11/02/2024 12:00 PM EDT Appointment [place] [address] 11/02/2024 1:00 PM EDT Office Visit [place] [address] Magdalena Peralta MD [facility] [place] [address] 03/01/2025 4:15 PM EDT Office Visit Dermatology at [place] [address] [place] [address] Marek Bonilla MD [address], [place] [address] documented as of this encounter Visit Diagnoses Not on filedocumented in this encounter Care Teams Timber Supervisor Relationship Specialty Start Date End Date Deborah Quiroga APRN PCP - General Family Medicine 03/24/16 02/04/23 documented as of this encounter
[2024-06-08 14:15] VITALS: BP 120/59; PULSE 77
--- OUTSIDE RECORDS SUMMARY | 2024-06-08 14:15 | XMS_ITS | Encounter Summary ---
Author Organization [facility] [place] [address] Care Team Providers Care Deputy Chief Magistrate Name Role Phone Ashley Quirogan Cornelius ANURAG Primary Care Provider +1 [phone] Reason for Visit * Reason Onset Date Comments Pre Procedure Call 06/18/2016 Encounter Details Date Type Department Care Team (Late st Contact Info) Description 06/18/2016 Telephone Hematology [place] [address] Alexandrea Greenwood RN Pre Procedure [...] Visit Hematology [place] [address] Markel Borjas MD [facility] [address] HEMATOLOGY [place] [address] 11/02/2024 12:00 PM EDT Appointment [place] [address] 11/02/2024 1:00 PM EDT Office [place] [address] Magdalena Peralta MD [facility] [place] [address] 03/01/2025 4:15 PM EDT Office Visit Dermatology at [place] [address] [facility] [place] [address] Marek Bonilla MD [address], TODD [place] [address] documented as of this encounter Visit Diagnoses Not on filedocumented in this encounter Care Teams Deputy Chief Magistrate Relationship Specialty Start Date End Date Deborah Quiroga APRN PCP - General Family Medicine 03/24/16 02/04/23 documented as of this encounter
--- OUTSIDE RECORDS SUMMARY | 2024-06-08 14:15 | XMS_ITS | Encounter Summary ---
Author Organization [facility] [place] [address] Care Team Providers Care Audiology Assistant Name Role Phone Deborah Quiroga APRN Primary Care Provider +1 [phone] Encounter Details Date Type Department Care Team (Late st Contact Info) Description 08/18/2016 4:20 PM EST Clinical Support Same Day at [facility] [place] [place] [address] Social History Tobacco Use Types Packs/Day Years [...] EST Office Visit Hematology [place] [address] Markel Borjas MD [facility] [address] [place] [address] 11/02/2024 12:00 PM EDT Appointment Pulmonology at [place] [address] 11/02/2024 1:00 PM EDT Office Visit Rheumatology at [place] [phone] Magdalena Peralta MD [facility] [place] [address] 03/01/2025 4:15 PM EDT Office Visit Dermatology at [address] [place] [address] Marek Bonilla MD [address], [place] [address] documented as of this encounter Visit Diagnoses Not on filedocumented in this encounter Care Teams Audiology Assistant Relationship Specialty Start Date End Date Deborah Quiroga APRN PCP - General Family Medicine 03/24/16 02/04/23 documented as of this encounter
--- OUTSIDE RECORDS SUMMARY | 2024-06-08 14:15 | XMS_ITS | Encounter Summary ---
Author Organization [facility] [place] [address] Care Team Providers Care Still Operator Brandy Name Role Phone Ashley Quirogazac Shields APRN Primary Care Provider +1 [phone] Encounter Details Date Type Department Care Team (Late st Contact Info) Description 07/31/2016 Orders Only Hematology and Oncology at [place] [phone] Alexandrea Greenwood RN Neutropenia, unspecified type Social [...] EST Office Visit [place] [address] Markel Borjas MD [facility] [address] [place] [address] 11/02/2024 12:00 PM EDT [place] [address] 11/02/2024 1:00 PM EDT Office Visit Rheumatology at [place] [phone] Magdalena Peralta MD [facility] [place] [address] 03/01/2025 4:15 PM EDT Office Visit Dermatology at [place] [address] [place] [address] Marek Bonilla MD [address], [place] [address] documented as of this encounter [...] type documented in this encounter Care Teams Still Operator Brandy Relationship Specialty Start Date End Date Deborah Quiroga APRN PCP - General Family Medicine 03/24/16 02/04/23 documented as of this encounter
--- OUTSIDE RECORDS SUMMARY | 2024-06-08 14:15 | XMS_ITS | Encounter Summary ---
Author Organization [facility] [place] [address] Care Team Providers Care Wire Frame Lamp Shade Maker Name Role Phone Ashley Quirogazac Shields APRN Primary Care Provider +1 [phone] Encounter Details Date Type Department Care Team (Late st Contact Info) Description 09/17/2016 External Results Hematology and Oncology at [place] [phone] Alexandrea Greenwood RN Neutropenia, unspecified type Social [...] EST Office Visit Hematology [place] [address] Markel Borjas MD [facility] [address] [place] [address] 11/02/2024 12:00 PM EDT Appointment [place] [address] 11/02/2024 1:00 PM EDT Office Visit Rheumatology at [place] [phone] Magdalena Peralta MD [facility] [place] [address] 03/01/2025 4:15 PM EDT Office Visit Dermatology at [place] [address] [place] [address] Marek Bonilla MD [address], [place] [address] documented as of this encounter Procedures Procedure [...] type documented in this encounter Care Teams Wire Frame Lamp Shade Maker Relationship Specialty Start Date End Date Deborah Quiroga APRN PCP - General Family Medicine 03/24/16 02/04/23 documented as of this encounter
--- OUTSIDE RECORDS SUMMARY | 2024-06-08 14:15 | XMS_ITS | Encounter Summary ---
Author Organization [facility] Address [facility] [place] [address] Care Team Providers Care Pressing Machine Operator Name Role Phone Junaid Deborah Shields APRN Primary Care Provider +1- [phone] Encounter Details Date Type Department Care Team (Latest Contact Info) Description 06/19/2016 - 06/19/2016 11:59 PM EST Hospital Encounter Radiology Library [place] [phone] Nitesh Pina Jr., MD [facility] [place] [address] Pain Discharge Disposition: Home Social History Tobacco [...] EST Office Visit Hematology [place] [address] Markel Borjas MD [facility] DR [place] [address] 11/02/2024 12:00 PM EDT [place]oint[place] [address] 11/02/2024 1:00 PM EDT Office Visit Rheumatology at [place] [phone] Magdalena Peralta MD [facility] [place] [address] 03/01/2025 4:15 PM EDT Office Visit Dermatology at [place] [address] [facility] [place] [address] Marek Bonilla MD [address], [place] [address] documented as of this encounter Procedures Procedure [...] Jr., MD IMG FILM LIBRARY ORD ERABLES [place], [place] documented in this encounter Visit Diagnoses Diagnosis Pain Generalized pain documented in this encounter Care Teams Pressing Machine Operator Relationship Specialty Start Date End Date Deborah Quiroga, COLOR PRINT INSPECTOR PCP - General Family Medicine 03/24/16 02/04/23 documented as of this encounter
--- OUTSIDE RECORDS SUMMARY | 2024-06-08 14:15 | XMS_ITS | Encounter Summary ---
[place] [address] Care Team Providers Care Lean Manufacturing Leader Name Role Phone Junaid, Deborah Shields APRN Primary Care Provider +1- [phone] Reason for Visit * Reason Onset Date Comments Labs Only 09/16/2016 Encounter Details Date Type Department Care Team (Late st Contact Info) Description 09/16/2016 Telephone Hematology [place] [address] Alexandrea Greenwood, RN Labs Only Social History [...] 09/16/2016 11:09 AM EST Message received from laboratory secretary: Purnima is having her Neulasta done today at [facility]. ??She is wondering if we want to do a CBC prior to the injection? [phone] Borjas: CBC is fine RN spoke with Swapna at [facility] who confirms they can draw CBC on pt today, RN faxed CBC w/diff to [facility] lab at [phone] RN relayed to pt that CBC ordered had been faxed to [facility], pt will have CBC drawn today prior to neulasta injection. documented in this encounter Plan of Treatment Upcoming Encounters Date Type Department Care Team (Late st Contact Info) Description 06/23/2024 2:00 PM EST Office Visit [place]ematology [place] [address] [facility] [address] [place] [address] 11/02/2024 12:00 PM EDT Appointment [place] [address] 11/02/2024 1:00 PM EDT Office [place] [address] [facility] [place] [address] 03/01/2025 4:15 PM EDT Office Visit Dermatology at [address] [address] Marek Bonilla MD [address] [facility] TODD A DERMATOLOGY [place], [place] [address] documented as of this encounter Results * [...] type documented in this encounter Care Teams Lean Manufacturing Leader Relationship Specialty Start Date End Date Deborah Quiroga, WEB APPLICATIONS ADMINISTRATOR PCP - General Family Medicine 03/24/16 02/04/23 documented as of this encounter
--- OUTSIDE RECORDS SUMMARY | 2024-06-08 14:15 | XMS_ITS | Encounter Summary ---
Author Organization [facility] Address [facility] Erika [facility] [place] [address] Care Team Providers Care Marine Rigger Name Role Phone Ashley Quirogazac Shields APRN Primary Care Provider +1- [phone] Encounter Details Date Type Department Care Team (Late st Contact Info) Description 07/03/2016 External Results Hematology [place] [address] Matthew Cervantes, DO [address] [place] [address] Social History Tobacco Use Types Packs/Day Years [...] EST Office Visit Hematology [place] [address] Markel Borjas MD [facility] DR HEMATOLOGY [place] [address] 11/02/2024 12:00 PM EDT Appointment [place] [address] 11/02/2024 1:00 PM EDT Office [place] [address] Magdalena Peralta MD [facility] [place] [address] 03/01/2025 4:15 PM EDT Office Visit Dermatology at [place] [address] [place] [address] Marek Bonilla MD [address], [place] [place] [address] documented as of this encounter Procedures Procedure Name Priority Date/Time Associated Diagnosis Comments BONE MARROW ASPIRATION PERFO RMED WITH BONE MARRROW BIOPSY Routine 06/28/2016 documented in this encounter Results * BONE MARROW ASPIRATION PREFORMED WITH BONE MARRROW BIOPSY (06/28/2016) Matthew Cervantes DO GENERAL SURGI DANIEL ORDERABLES documented in this encounter Visit Diagnoses Not on filedocumented in this encounter Care Teams Marine Rigger Relationship Specialty Start Date End Date Deborah Quiroga APRN PCP - General Family Medicine 03/24/16 02/04/23 documented as of this encounter
--- OUTSIDE RECORDS SUMMARY | 2024-06-08 14:15 | XMS_ITS | Encounter Summary ---
Author Organization [facility] [place] [address] Care Team Providers Care [employer] Teacher Name Role Phone Deborah Quiroga APRN Primary Care Provider [phone] Encounter Details Date Type Department Care Team (Latest Contact Info) Description 07/10/2016 2:54 PM EST - 07/10/2016 11:59 PM EST Hospital [place] [phone] Discharge Disposition: Home Social History Tobacco Use [...] EST Office Visit Hematology [place] [address] Markel Borjas MD [facility] DR HEMATOLOGY [place] [address] 11/02/2024 12:00 PM EDT Appointment [place] [phone] 11/02/2024 1:00 PM EDT Office [place] [phone] Magdalena Peralta MD [facility] DR [place] [address] 03/01/2025 4:15 PM EDT Office Visit Dermatology at [address] [place] [phone] Marek Bonilla MD [address], [place] [address] documented as of this encounter Procedures Procedure Name Priority Date/Time Associated Diagnosis Comments BONE MARROW FINAL REPORT Routine 07/10/2016 3:43 PM EST documented in this encounter Results * Bone Marrow Final Report (07/10/2016 3:43 PM EST) Final Diagnosis [id number] ?Location: [facility] The signing pathologist has (i) examined the relevant preparation(s) for the specimen(s) and (ii) rendered or confirmed the diagnosis(es). . ? Bone Marrow Final DIAGNOSIS BONE MARROW (PERIPHERAL SMEAR, ASPIRATE SMEAR, TOUCH PREP, CLOT SECTION, CORE BIOPSY); [OSR# [id number], COLLECTED 06/23/2016, 19 SLIDES]: ?? 1. 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 Polytypic plasma cell staining, high background Lambda ?Polytypic plasma cell staining, high background Block: ? B2 (Core biopsy 2) Fixative: ?? Formalin ANTIBODY: ?? RESULT/COMMENT CD3 ? Scattered small lymphocytes and lymphoid aggregates highlighted CD20 ?Few scattered small lymphocytes stain ( ?? <CD3 in aggregates) CD138 ? Scattered plasma cells represent 3-4% of the cellularity [place] ? Polytypic plasma cell staining, high background Lambda ?Polytypic plasma cell staining, high background Note: The immunoperoxidase stains reported above were developed and their performance characteristics determined by [facility]. ??They have not been cleared [...] CONSULTATION CASE A - 19 slides labeled [id number], collection date 06/23/2016. [id number] Report to: [facility] Surgical Pathology Department [facility], [facility], 2nd Floor [address], [place] ??[address] 07/13/2016 11:38 AM EST [facility] Consult Case 07/10/2016 3:43 PM EST 07/10/2016 3:43 PM EST Nitesh Pina Jr., MD PATHOLOGY/CYTOLOGY O RDERABLES [facility] [place] [address] documented in this encounter Visit Diagnoses Not on filedocumented in this encounter Care Teams Naval Science Teacher Relationship Specialty Start Date End Date Deborah Quiroga APRN PCP - General Family Medicine 03/24/16 02/04/23 documented as of this encounter
--- OUTSIDE RECORDS SUMMARY | 2024-06-08 14:15 | XMS_ITS | Encounter Summary ---
[place] [address] Care Team Providers Care Cashier Parking Lot Name Role Phone Deborah Quiroga APRN Primary Care Provider [phone] Reason for Visit * Reason Onset Date Comments Prior Authorization 09/11/2016 Neulasta Encounter Details Date Type Department Care Team (Late st Contact Info) Description 09/11/2016 Telephone Hematology [place] [phone] Monica Wick Prior Authorization (Neulasta ) Social [...] AM EST Prior Auth for Neulasta (Approved) [facility] is a covered facility under the members plan. ID# [id number] Call placed to [phone] Rationale: Can you please start a PA for this pt to receive as outpatient at [facility] on 09/16/16? 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 ??Her last ANC was 0.56 (or 560) on 08/04/16. ??This will need to be approved through her medical as out patient. J code for neulasta. ?? [id number]. Spoke w/ Anna Marie Call Reference [id number] Copay: $ Deductible is not met, patient will have out of pocket costs until deductible is met. documented in this encounter Plan of Treatment Upcoming Encounters Date Type Department Care Team (Late st Contact Info) Description 06/23/2024 2:00 PM EST Office Visit Hematology and Oncology at [place] [phone] Markel Borjas MD [facility] [address] [place] [address] 11/02/2024 12:00 PM EDT Appointment Pulmonology at [address] 11/02/2024 1:00 PM EDT Office Visit Rheumatology at [place] [phone] Magdalena Peralta MD [facility] [place] [address] 03/01/2025 4:15 PM EDT Office Visit Dermatology at [address] [place] [phone] Marek Bonilla MD [address], [place] [address] documented as of this encounter Visit Diagnoses Not on filedocumented in this encounter Care Teams Cashier Parking Lot Relationship Specialty Start Date End Date Deborah Quiroga APRN PCP - General Family Medicine 03/24/16 02/04/23 documented as of this encounter
--- OUTSIDE RECORDS SUMMARY | 2024-06-08 14:15 | XMS_ITS | Encounter Summary ---
Author Organization [facility] Address [facility] [place] [address] Care Team Providers Care Cow Trimmer Name Role Phone Junaid Deborah Shields APRN Primary Care Provider Encounter Details Date Type Department Care Team (Late st Contact Info) Description 07/17/2016 9:00 AM EST Office Visit Hematology [place] [address] Markel Borjas MD [facility] DR HEMATOLOGY [place] [address] Neutropenia, unspecified type Social History Tobacco Use [...] 07/17/2016 9:00 AM EST Hematology Outpatient Clinic [facility] [...] TOUCH PREP, CLOT SECTION, CORE ??BIOPSY); [OSR# [id number], COLLECTED 06/23/2016, 19 SLIDES]: ?1. ??Normocellular marrow [...] a clonal lymphoproliferative or myeloproliferative disorder (OSR# [id number]) Chromosome analysis on the marrow aspirate revealed [...] 24 hour(s)). Labs will be drawn at [facility] next week Imaging As above [...] leukopenia. Will consi kanwal talking to pt's gymnastics coach or instructor about a switch from ACEI to ARB [...] the original note were not included. N [facility] HEM ONC [facility] [phone] Date: 07/17/16 Patient Name: Purnima Thacker : 1955 Diagnosis: neutropenia Referral to [site]: [facility] Orders: ? Labs: Fax results to . [x] Draw CBC, copper level, CMV PCR, mononucleosis screen on 07/20 Repeat CBC on 07/30 (to measure response of WBC after Neulasta) ? Growth factor: [x] Neulasta 6mg SQ injection x 1 on 07/20/2016 Signature: Markel Borjas MD beeper # [id number] documented in this encounter Plan of Treatment Upcoming Encounters Date Type Department Care Team (Late st Contact Info) Description 06/23/2024 2:00 PM EST Office Visit Hematology [place] [address] Markel Borjas MD [facility] DR HEMATOLOGY [place] [address] 11/02/2024 12:00 PM EDT Appointment [place] [phone] 11/02/2024 1:00 PM EDT Office [place] [address] Magdalena Peralta MD [facility] DR [place] [address] 03/01/2025 4:15 PM EDT Office Visit Dermatology at [place] [address] [facility] [place] [address] Marek Bonilla MD [address], [place] [address] documented as of this encounter Results * (ABNORMAL) CBC (with Diff) (07/31/2016 9:40 AM EST) [facility] White Blood Cell 2.23(EXTER NAL/ABN) 4.4 [...] Screen (07/20/2016 10:30 AM EST) [facility] Mononucleosis Screen neg neg - neg EXTERNAL LAB Blood specimen (specimen) 07/20/2016 10:30 AM EST Markel Borjas MD IMMUNOLOGY ORDERAB LES EXTERNAL LAB * Copper, serum (07/20/2016 10:30 AM EST) [facility] Copper (NOVEMBER) 1.09 0.75 - 1.45 EXTERNAL LAB Blood specimen (specimen) 07/20/2016 10:30 AM EST Markel Borjas MD LAB SEND OUT ORDER JODIE Performing Organization Address City/[facility]/ZIP Co de Phone Number EXTERNAL LAB * CMV PCR, Quantitative (07/20/2016 10:30 AM EST) CMV PCR,Quantitati ve undetected EXTERNAL LAB Blood specimen (specimen) 07/20/2016 10:30 AM EST Markel Borjas MD MOLECULAR ORDERABL ES Performing Organization Address [facility]/[place] Co de Phone Number EXTERNAL LAB * [...] LES Performing Organization Address [facility]/[place] Co de Phone Number EXTERNAL LAB documented in this encounter Visit Diagnoses Diagnosis Neutropenia, unspecified type documented in this encounter Care Teams Cow Trimmer Relationship Specialty Start Date End Date Deborah Quiroga, SHEEP SORTER PCP - General Family Medicine 03/24/16 02/04/23 documented as of this encounter
--- OUTSIDE RECORDS SUMMARY | 2024-06-08 14:15 | XMS_ITS | Encounter Summary ---
[place] [address] Care Team Providers Care Administrative Tech Name Role Phone Junaid Deborah Shields APRN Primary Care Provider [phone] Reason for Visit * Auth/Cert Specialty Diagnoses / Procedures Referred By Crispin t Referred To Contact Diagnoses Aortic stenosis Procedures PRO REPLACE AORT VALV, PROSTH VALV @REPLACE AORTIC VALVE, OPEN, W\CPB, W\PROSTHETIC VALVE (WRVU 41.32) Referral ID Status Reason Start Date Expiration Date Visits Re quested Visits Authorized [id number] 1 1 Encounter Details Date Type Department Care Team (Late st Contact Info) Description 09/21/2016 7:30 AM EST - 09/21/2016 12:04 PM EST Surgery [place] [address] Alirio Esparza MD @REPLACE AORTIC VALVE, OPEN, [...] Patient Age: 61 y.o. Birthdate: 1955 Language: Turkish Race: White Ethnicity: Not nor Admit Date: 09/21/2016 Discharge Date: 09/25/2016 Attending Physician: Alirio Esparza MD Follow-up Recommendations for Providers: Please continue routine management of cardiovascular risk factors including blood pressure, lipids,glucose, etc. Please note any changes to medications. Patient to follow-up with PCP, Deborah Quiroga APRN, in 1-2 weeks. Patient to follow-up with Distance Learning Program Coordinator, Dr. Antelmo Burrell, in two weeks. Patient to follow-up with Cardiac Surgery, Dr. Alirio Esparza, to be scheduled for before 10/19/2016, with CXR, EKG, and Echo. Inpatient Provider Contact Information: [facility] Section of Cardiac Surgery [facility] [address] FAX [phone] Discharge Diagnoses (Hospital Problems) Primary Diagnoses: Secondary [...] Hospital Course: Purnima Thacker was admitted to [facility] on 09/21/2016 via the Same Day [...] Alirio Esparza and/or the Cardiac Surgery Physician Vp Scientific Team may be reached at . Antibiotic [...] Dr. Alirio Jones. You may use a Lesage Track or treadmill but avoid any pulling [...] friends, go to a movie, go to taoist, etc. Heavy activities: No hunting, skiing, jogging, [...] outpatient Phase [address] [facility]. The patient agrees to a referral to this program. The referral will be sent at discharge and the patient should be contacted by the program within 1- 2 weeks from discharge. Future Appointments and Orders Future Appointments Provider Department Dept Phone 11/20/2016 11:30 AM Markel Borjas MD [facility] [phone] Future Orders Complete By Expires Echocardiogram Transthoracic([facility]) [FTN050 Custom] 10/18/2016 (Approximate) 09/18/2017 Process Instructions: If the Echocardiogram is to be PERFORMED in a [facility] location other than [facility]--STOP and order [id number], Echocardiogram South/External. Scheduling Instructions: Questions: Is a Bubble Study requested?: No Does the patient have Congenital Heart Disease?: No Does patient require sedation?: None GA rationale: Should this service be billed to the research sponsor?: EKG 12 Lead [EKG1 Custom] 10/18/2016 (Approximate) 09/25/2017 Process Instructions: Scheduling Instructions: Questions: Which DH location will this be performed?: [place] Is a rhythm strip needed?: No If EKG Reason is Pre-op Evaluation, indicate diagnosis for surgery.: Should this service be billed to the research sponsor?: XR Chest PA & Lateral (Generic) [03054 [id number] Custom] 10/18/2016 (Approximate) 09/25/2017 Process Instructions: Scheduling Instructions: Questions: Where will study be performed?: [facility]- Radiology Portable exam?: No Reason for exam and clinical history: s/p AVReplacement, patch annuloplasty 1 month f/u Other pertinent information: Stat read required?: Date of injury if applicable: Requested Time: Referral to Cardiac Rehab [WCM265 Custom] As directed Process Instructions: If no progress note charted, please enter Clinical details in comments. Scheduling Instructions: Questions: My question or request is: s/p AVR. Cardiac rehab at [facility] Referral to Home Health - at DISCHARGE [IKF9469 CPT(R)] As directed Process Instructions: Scheduling Instructions: Comments: DOCUMENTATION FOR VNA SERVICES (INCLUDING THOSE PATIENTS WITH MEDICARE COVERAGE REQUIRING HOME VNA SERVICES AND/OR HOSPICE SERVICES) PATIENT'S LOCATION: Purnimakary Gallego[address] [address] (home) No relevant phone numbers on file. Tool And Die Maker/Designer's Name: self In discussion with the attending physician, it is certified that this patient is under their care and that they, or a Nurse Practitioner, or Physician Vp Scientific who is working directly with them, hada [...] for services as follows: HOME HEALTH AGENCY: [facility] PHONE: [phone] FAX: [phone] RN orders: Cardiopulmonary assessment, incisional assessment, assess [...] issues please call the Cardiac SurgeryOffice at [phone] FOR MEDICARE ONLY: In discussion with the [...] 09/30/16 Signed: Crispin Aranda PA-C 09/25/2016 [facility] [address] FAX [phone] Date: 09/25/2016 CC: ANURAG Alford Caryn E, APRN [address] [place] [address] documented in this encounter Discharge Instructions * [...] Alirio Esparza and/or the Cardiac Surgery Physician Vp Scientific Team may be reached at . Antibiotic [...] Dr. Alirio Jones. You may use a Lesage Track or treadmill but avoid any pulling [...] friends, go to a movie, go to taoist, etc. Heavy activities: No hunting, skiing, jogging, [...] outpatient Phase [address] [facility]. The patient agrees to a [...] PM EST Cardiac Surgery Progress Note: ID: [id number] S/p AVR, patch aortoplasty POD#2. PMH of [...] Gas) No results found for: PHART, PO2ART, BBP5BGE Assessment/Plan: TPW out this am. (+) BM. [...] Signed: Crispin Aranda PA-C 09/24/2016 Team pager: [phone] after 5pm [facility] Section of Cardiac Surgery * Leonor Henson S, ANIMAL CONTROL LICENSING WORKER - 09/23/2016 10:48 AM EST Cardiac Surgery Progress Note: ID: [id number] s/p AVR, patch aortoplasty POD#2. PMH of [...] Gas) No results found for: PHART, PO2ART, UWU3PYY Assessment/Plan: s/p AVR, patch aortoplasty POD#2. PMH of Neutropenia, HLD, HTN, Depression, obesity, . Transferred from [facility] yesterday and doing well. Pathway. [...] Surgeon on rounds. Signed: Leonor Henson APRN [facility] Section of Cardiac Surgery Date: 09/23/2016 * Nico Palacios PA - 09/22/2016 9:56 AM EST Cardiac Surgery Progress Note: ID: [id number] s/p AVR, patch aortoplasty POD#1. PMH of [...] NT, ND, soft. Ext: Moves all extremities. [place], well perfused. Incisions: C/D/I Tubes/Lines/Drains: PIV, leanna, [...] Attending Surgeon on rounds. Signed: EKATERINA KIM [facility] Section of Cardiac Surgery Date: 09/22/2016 [...] Outcome (s) achieved Date Met: 09/25/16 09/25/16 8439 Coping/Psychosocial Plan Of Care Reviewed With patient [...] home with outpatient services Lalitha Cohen [facility] Pager: [phone] Inpatient Physical Therapy Patient status, treatment interventions, and goals discussed with student. I am in agreement with all details and associated flowsheet rows as documented and was present for all aspects of the patient treatment session. Nery Jaramillo, CANDY Pager [phone] Problem: Acute Rehab Services Goal & Intervention Plan Goal: Bed Mobility Goal Stand Alone Therapy Goal Outcome: Ongoing (Interventions Implemented as Appropriate) 09/22/16 1611 09/25/16 0947 Bed Mobility Goal Bed Mobility Goal, Time to Achieve 4 days -- Bed Mobility Goal, Activity Type scoot/bridge;supine to sit/sit to supine -- Bed Mobility Goal, Hanover Level independent -- Bed Mobility Goal, Additional [...] Achieve 4 days -- Gait Training Goal, [place] Level independent -- Gait Training Goal, Distance [...] assist, home with home health [facility] Pager: [phone] Inpatient Physical Therapy Patient status, treatment interventions, and goals discussed with student. I am in agreement with all details and associated flowsheet rows as documented and was present for all aspects of the patient treatment session. Nery Jaramillo, ROTOR CASTING MACHINE OPERATOR Pager [phone] Problem: Acute Rehab Services Goal & Intervention Plan Goal: Bed Mobility Goal Stand Alone Therapy Goal Outcome: Ongoing (Interventions Implemented as Appropriate) 09/22/16161009/23/161411 Bed Mobility Goal Bed Mobility Goal, Time to Achieve 4 days -- Bed Mobility Goal, Activity Type scoot/bridge;supine to sit/sit to supine -- Bed Mobility Goal, [place] Level independent -- Bed Mobility Goal, Additional [...] Achieve 4 days -- Gait Training Goal, [place] Level independent -- Gait Training Goal, Distance [...] days -- Transfer Training Goal, Activity Type kbn-gv-pynab/sctyo-pd-nwl;dju-gl-fcnbo/ojlmg-im-ycp -- Transfer Train Goal, [place] Level independent -- Transfer Training Goal, Additional Goal abides sternal precautions -- Transfer Training Goal, Outcome -- goal met * Consult Note - Jana Crenshaw RN - 09/23/2016 9:41 AM EST [facility] Purnima Thacker was seen today regarding participation in the outpatient Phase [address] [facility]. The patient agrees to a [...] Another Service: (cardiac rehab) NICOLE HERNANDEZ, PT Pager:[phone] Inpatient Physical Therapy Problem: Acute Rehab Services Goal & Intervention Plan Goal: Bed Mobility Goal Stand Alone Therapy Goal Outcome: Ongoing (Interventions Implemented as Appropriate) 09/22/161610 Bed Mobility Goal Bed Mobility Goal, Time to Achieve 4 days Bed Mobility Goal, Activity Type scoot/bridge;supine to sit/sit to supine Bed Mobility Goal, Han[place] Level independent Bed Mobility Goal, Additional Goal able to abide sternal precautions during transfers Goal: Gait Training Goal Stand Alone Therapy Goal Outcome: Ongoing (Interventions Implemented as Appropriate) 09/22/161610 Gait Training Goal Gait Training Goal, Date Established 09/22/16 Gait Training Goal, Time to Achieve 4 days Gait Training Goal, Han[place] Level independent Gait Training Goal, Distance to Achieve ascend and descends 2 steps independently Goal: Goal Transfer Training Stand Alone Therapy Goal Outcome: Ongoing (Interventions Implemented as Appropriate) 09/22/161610 Goal Transfer Training Transfer Training Goal, Time to Achieve 4 days Transfer Training Goal, Activity Type inz-wy-azmhd/flolw-lq-syl;hfv-bw-amkvn/odbmq-kg-oxm Transfer Train Goal, Han[place] Level independent Transfer Training Goal, Additional Goal [...] of completing AD's at home, chooses her sctzxb-sv-xwc, Martha Thacker (home) for her DPOAH, 2nd choice in friend, Nitesh Rad, [place], [place] Current Coping/Education/Information Needs: patient sitting up [...] close by, Rashad & Raymond, and her clwpud-fu-aiu Martha Thacker who she has chosen to be her DPOAH. Also has a friend Nitesh Leroy who lives in [place], [place], also her DPOAH choice. Behavioral Health History: none on file in e[facility] Substance Use/Abuse: none on file in [facility] Other Pertinent/Service Specific Information: none Health/Prescription Coverage: Primary Insurance: [employer] Secondary Insurance: none Prescription Coverage: yes, per patient no issues Preferred Pharmacy: ?? Other: none Primary Care Provider: Deborah Quiroga, ANIMAL CONTROL LICENSING WORKER [phone] Patient/Caregiver Goals of Treatment: per medical team recommendations at discharge for CT surgery Potential Needs for Transition of Care: Rehab/SNF: TBD Home Health: TBD DME: no Dialysis: no Community Resources: non3 Transportation: ride home with a friend Other: none Anticipated Barriers to Discharge/Special Considerations: none anticipated at this time Plan: patient will need VNA services at discharge. The patient/representative personal service has been provided a list of Home Health Agencies/DME vendors which servetheir preferred geographic area. A letter describing our affiliations was reviewed with them and they were educated about their right to choose where referrals are placed. Patient requests referral to: [facility] [employer]. PHONE: [phone] FAX: [phone] Expected date of discharge: Fri/Sat? CM called VNA to confirm referral, talked with VALDO Bunn/intake who stated she was familiar w/patient & would monitor her progress through curaspan. Referral routed to the Party Demonstrator for matching with agency/vendor and to provide any required information. A member of the Care Management team will continue to monitor progress, follow for continuity of care and assist with transition of care planning. Amanda Moreno RN Pager: [phone] * Op Note - Alirio Esparza MD - 09/21/2016 12:53 PM EST 09/23/2016 Purnima Thacker 1955 [id number] Preoperative Diagnosis: Symptomatic aortic stenosis Postoperative Diagnosis: Symptomatic aortic stenosis Procedure: Aortic valve replacement: Bovine Pericardial 25 mm Surgeon: Alirio Esparza M.D. Vp Scientific: Philip BALL Anesthesia: General endotracheal anesthesia Drains: [...] applied. The patient was transported to the [facility] on levo. All counts were [...] Operative Note Patient Name: Purnima Thacker : [id number] MR#: [id number] Case Date: 09/21/2016 Surgeon: Surgeon(s) and Role: * Alirio Esparza MD - Primary * Nico Palacios PA - Physician Vp Scientific Preoperative diagnosis: Postoperative diagnosis: Procedure(s) (LRB): @REPLACE [...] Visit Hematology [place] [address] Markel Borjas MD [facility] [address] HEMATOLOGY [place] [address] 11/02/2024 12:00 PM EDT Appointment [place] [address] 11/02/2024 1:00 PM EDT Office [place] [phone] Magdalena Peralta MD [facility] [place] [address] 03/01/2025 4:15 PM EDT Office Visit Dermatology at [address] [place] [phone] Marek Bonilla MD [address], [place] [address] Scheduled Orders Name Type Priority Associated Diagnoses [...] IMPLANTABLE DEVICES SCAN 09/26/2016 12:00 AM EST CARAMEL CANDY MAKER HELPER SCAN 09/26/2016 12:00 AM EST POTASSIUM [...] Routine 09/22/2016 4:00 AM EST CARDIAC ENZYMES ([facility]) Routine 09/22/2016 4:00 AM EST CREATININE Routine [...] SCAN EXT O RDR/RSLT * SCAN DOC: CARAMEL CANDY MAKER HELPER (09/26/2016 12:00 AM EST) Anatomical Region [...] CHEMISTRY ORDERABLE S [facility] [place] [address] * (ABNORMAL) Differential, Automated (09/24/2016 9:56 AM EST) Pathologist [facility] Neutrophil % 76.8 % [facility] Neutrophil Absolute 7.79(H) 1.70 - 6.10 x10(3)/mc L [facility] Lymph % 11.1 % [facility] Lymphocytes Abs 1.1 0.9 - 3.2 x10(3)/mc L [facility] Monocyte % 8.5 % [facility] Monocyte Abs 0.9 0.3 - 0.9 x10(3)/mc L [facility] Eos % 0.5 % [facility] Eosinophils Abs 0.0 0.0 - 0.4 x10(3)/mc L [facility] Basophil % 0.2 % [facility] [...] MD HEMATOLOGY ORDERABL ES Performing Organization Address City/State/[facility] Co de Phone Number [facility] [place] [address] * (ABNORMAL) Hemogram (09/24/2016 9:56 AM EST) White Blood Cell 10.1(H) 4.0 - 9.5 x10(3)/ L [facility] Red Blood [...] Platelet 141(L) 145 - 357 x10(3)/ L [facility] RDW Standard Deviation 45.0 37.0 - 46.0 fL [facility] RDW coefficient of variation 12.6 11.5 - 14.1 % [facility] Mean Platelet Volume 9.4 7.6 - 12.9 fL [facility] NRBC% auto 1.1 % [facility] NRBC Absolute 0.110(H) 0.000 - 0.000 x10(3)/mc L [facility] Blood specimen (specimen) 09/24/2016 9:56 AM EST 09/24/2016 10:04 AM EST Narrative Resulting Agency Comment Spec In Lab Alirio Esparza MD HEMATOLOGY ORDERABL ES [facility] [place] [address] * (ABNORMAL) Basic Metabolic Panel (non-fasting) (09/24/2016 [...] supplied above were not validated at [facility]. Results from pediatric patients should be interpreted [...] the following links into your internet browser. [email or web address] [email or web address] Blood specimen (specimen) 09/24/2016 9:56 AM EST 09/24/2016 10:04 AM EST Narrative Resulting Agency Comment Spec In Lab Alirio Esparza MD CHEMISTRY ORDERABLE S [facility] [place] [address] * XR Chest PA & Lateral (Generic) [...] retrocardiac atelectasis, consistentwith anticipated postoperative changes. Alirio Esaprza MD IMG DX ORDERABLES * Potassium (09/23/2016 [...] [facility]/ZIP Co de Phone Number [facility] [place] [address] * POCT Glucose (09/22/2016 8:17 AM EST) Glucose, POC 131 65 - 199 mg/dL [facility] Comment: Supplemental ranges: <140 mg/dL before meals <180 mg/dL all other times of the day Blood specimen (specimen) 09/22/2016 8:17 AM EST 09/22/2016 8:17 AM EST Alirio Esparza MD POINT OF CARE TEST ORDERABLES [facility] [place] [address] * POCT Glucose (09/22/2016 4:01 AM EST) Glucose, POC 135 65 - 199 mg/dL [facility] Comment: Supplemental ranges: <140 mg/dL before meals <180 mg/dL all other times of the day Blood specimen (specimen) 09/22/2016 4:01 AM EST 09/22/2016 4:01 AM EST Alirio Esparza MD POINT OF CARE TEST ORDERABLES Performing Organization Address [facility] Co de Phone Number [facility] [place] [address] * Scan, Peripheral Blood (09/22/2016 4:00 AM EST) Plat estimate Normal [facility] RBC Morphology Abnormal [facility] Macrocyte 1-5 /HPF [facility] Plat, Giant Less than 1 /HPF [facility] Blood specimen (specimen) 09/22/2016 4:00 AM EST 09/22/2016 4:34 AM EST Narrative Resulting Agency Comment Spec In Lab Alirio Esparza MD HEMATOLOGY ORDERABL ES Performing Organization Address [facility] Phone Number [facility] [place] [address] * Electrolytes panel (09/22/2016 4:00 AM EST) Sodium 145 135 - 145 mmol/L [facility] [...] MD CHEMISTRY ORDERABLE S Performing Organization Address [facility]/[place] [address] * (ABNORMAL) Differential, Automated (09/22/2016 4:00 AM EST) Pathologist [facility] Neutrophil % 70.9 % [facility] Neutrophil Absolute 5.33 1.70 - 6.10 x10(3)/ L [facility] Lymph % 9.1 % [facility] Lymphocytes Abs 0.7(L) 0.9 - 3.2 x10(3)/ L [facility] Monocyte % 18.0 % [facility] Monocyte Abs 1.4(H) 0.3 - 0.9 x10(3)/ L [facility] Eos % 0.0 % [facility] Eosinophils Abs 0.0 0.0 - 0.4 x10(3)/[facility] Basophil % 0.1 % [facility] Baso Absolute 0.0 0.0 - 0.1 x10(3)/ L [facility] Immature Gran % 1.90 % [facility] Comment: Immature granulocytes(IG's)percentage and absolute count will include metamyelocytes, myelocytes, and promyelocytes. Blood smears from CBCs yielding IG's will be scanned manually for concordance. If this scan disagrees with the automated IG or if promyelocytes are noted, a manual differential will be performed. Immature Gran Absolute 0.14(H) 0.00 - 0.04 x10(3)/ L [facility] Blood specimen (specimen) 09/22/2016 4:00 AM EST 09/22/2016 4:34 AM EST Narrative Resulting Agency Comment Spec In Lab Alirio Esparza MD HEMATOLOGY ORDERABL ES [facility] [place] [address] * (ABNORMAL) Hemogram (09/22/2016 4:00 AM EST) [facility] White Blood Cell 7.5 4.0 - 9.5 x10(3)/mc L [facility] Red Blood Cell 2.93(L) 4.00 - 5.21 x10(6)/mc L [facility] Hemoglobin 9.2(L) 11.7 - 15.5 [...] x10(3)/[facility] RDW Standard Deviation 44.0 37.0 - 46.0 fL [facility] RDW coefficient of variation 12.6 11.5 - 14.1 % [facility] Mean Platelet Volume 9.3 7.6 - 12.9 fL [facility] NRBC% auto 0.3 % [facility] NRBC Absolute 0.020(H) 0.000 - 0.000 x10(3)/ L [facility] Blood specimen (specimen) 09/22/2016 4:00 AM EST 09/22/2016 4:34 AM EST Narrative Resulting Agency Comment Spec In Lab Alirio Esparza MD HEMATOLOGY ORDERABL ES [facility] [place] [address] * (ABNORMAL) Cardiac Enzymes (09/22/2016 4:00 AM EST) [facility] Troponin-T 0.13(H) <=0.03 ng/mL [facility] [...] Resulting Agency Comment Spec In Lab Ailrio Esparza MD CHEMISTRY ORDERABLE S [facility] [place] [id number] * (ABNORMAL) Glucose, fasting (09/22/2016 4:00 AM [...] MD CHEMISTRY ORDERABLE S Performing Organization Address [facility] Co de Phone Number [facility] [place] [address] * (ABNORMAL) Creatinine (09/22/2016 4:00 AM EST) Creatinine 0.69(L) 0.70 - 1.20 mg/dL [facility] Comment: Please note that the pediatric reference intervals supplied above were not validated at [facility]. Results from pediatric patients should be interpreted [...] the following links into your internet browser. [email or web address] [email or web address] Blood specimen (specimen) 09/22/2016 4:00 AM EST 09/22/2016 4:34 AM EST Narrative Resulting Agency Comment Spec In Lab Alirio Esparza MD CHEMISTRY ORDERABLE S Performing Organization Address [facility] Co de Phone Number [facility] [place] [address] * BUN (09/22/2016 4:00 AM EST) Blood Urea Nitrogen 10 8 - 18 mg/dL [facility] Blood specimen (specimen) 09/22/2016 4:00 AM EST 09/22/2016 4:34 AM EST Narrative Resulting Agency Comment Spec In Lab Alirio Esparza MD CHEMISTRY ORDERABLE S Performing Organization Address [facility]/ZIP Co de Phone Number [facility] [place] [address] * POCT Glucose (09/21/2016 9:59 PM EST) Glucose, POC 146 65 - 199 mg/dL [facility] Comment: Supplemental ranges: <140 mg/dL before meals <180 mg/dL all other times of the day Blood specimen (specimen) 09/21/2016 9:59 PM EST 09/21/2016 9:59 PM EST Alirio Esparza MD POINT OF CARE TEST ORDERABLES Performing Organization Address [facility] Co de Phone Number [facility] [place] [address] * POCT Glucose (09/21/2016 7:26 PM EST) Glucose, POC 152 65 - 199 mg/dL [facility] Comment: Supplemental ranges: <140 mg/dL before meals <180 mg/dL all other times of the day Blood specimen (specimen) 09/21/2016 7:26 PM EST 09/21/2016 7:26 PM EST Alirio Esparza MD POINT OF CARE TEST ORDERABLES Performing Organization Address [facility] Co de Phone Number [facility] [place] [address] * POCT Glucose (09/21/2016 6:00 PM EST) Glucose, POC 146 65 - 199 mg/dL [facility] Comment: Supplemental ranges: <140 mg/dL before meals <180 mg/dL all other times of the day Blood specimen (specimen) 09/21/2016 6:00 PM EST 09/21/2016 6:00 PM EST Alirio Esparza MD POINT OF CARE TEST ORDERABLES [facility] [place] [address] * (ABNORMAL) BLOOD GAS 2 ARTERIAL (09/21/2016 [...] Oxyhemoglobin, Arterial 96.2 94.0 - 97.0 % [facility] Carboxyhemoglob in, Arterial 0.0 % [facility] FIO2 Art 40 % [facility] PF Ratio Art 270 [facility] Blood specimen (specimen) 09/21/2016 4:42 PM EST 09/21/2016 4:42 PM EST Alirio Esparza MD POINT OF CARE TEST ORDERABLES Performing Organization Address City/[facility]/ZIP Co de Phone Number [facility] [place] [address] * POCT Glucose (09/21/2016 4:07 PM EST) Glucose, POC 150 65 - 199 mg/dL [facility] Comment: Supplemental ranges: <140 mg/dL before meals <180 mg/dL all other times of the day Blood specimen (specimen) 09/21/2016 4:07 PM EST 09/21/2016 4:07 PM EST Alirio Esparza MD POINT OF CARE TEST ORDERABLES Performing Organization Address [facility]/ZIP Co de Phone Number [facility] [place] [address] * (ABNORMAL) Hemoglobin (09/21/2016 4:05 PM EST) Hemoglobin 9.9(L) 11.7 - 15.5 gm/dL [facility] Blood specimen (specimen) 09/21/2016 4:05 PM EST 09/21/2016 4:20 PM EST Narrative Resulting Agency Comment Spec In Lab Alirio Esparza MD HEMATOLOGY ORDERABL ES Performing Organization Address City/[facility] Co de Phone Number [facility] [place] [address] * Potassium (09/21/2016 4:05 PM EST) Potassium [...] MD CHEMISTRY ORDERABLE S Performing Organization Address [facility] Co de Phone Number [facility] [place] [address] * POCT Glucose (09/21/2016 2:52 PM EST) Glucose, POC 117 65 - 199 mg/dL [facility] Comment: Supplemental ranges: <140 mg/dL before meals <180 mg/dL all other times of the day Blood specimen (specimen) 09/21/2016 2:52 PM EST 09/21/2016 2:52 PM EST Alirio Esparza MD POINT OF CARE TEST ORDERABLES Performing Organization Address [facility] Co de Phone Number [facility] [place] [address] * POCT Glucose (09/21/2016 1:51 PM EST) Glucose, POC 108 65 - 199 mg/dL [facility] Comment: Supplemental ranges: <140 mg/dL before meals <180 mg/dL all other times of the day Blood specimen (specimen) 09/21/2016 1:51 PM EST 09/21/2016 1:51 PM EST Alirio Esparza MD POINT OF CARE TEST ORDERABLES Performing Organization Address [facility] Co de Phone Number [facility] [place] [address] * POCT Glucose (09/21/2016 12:54 PM EST) Glucose, POC 128 65 - 199 mg/dL [facility] Comment: Supplemental ranges: <140 mg/dL before meals <180 mg/dL all other times of the day Blood specimen (specimen) 09/21/2016 12:54 PM EST 09/21/2016 12:54 PM EST Alirio Esparza MD POINT OF CARE TEST ORDERABLES Performing Organization Address [facility] Co de Phone Number [facility] [place] [address] * EKG 12 Lead (09/21/2016 12:26 PM EST) Ventricular rate 87 BPM MUSE SYSTEM Atrial Rate 87 BPM MUSE SYSTEM P-R Interval 256 ms MUSE SYSTEM QRS Duration 90 ms MUSE SYSTEM Q-T Interval 406 ms MUSE SYSTEM QTC Calculated (Bezet) 488 ms MUSE SYSTEM Calculated P [place] 24 degrees MUSE SYSTEM Calculated R [place] 21 degrees MUSE SYSTEM Calculated T [place] -5 degrees MUSE SYSTEM INTERPRETATION Sinus rhythm [...] Esparza MD ECG ORDERABLES Performing Organization Address [facility] Phone Number MUSE SYSTEM * XR [...] course of the esophagus and below the [id number]-ffme. There is a right IJ PA catheter [...] the course of theesophagus and below the [id number]. There is a right IJ PA catheter [...] [facility] FIO2 Art 100 % [facility] PF Ratio Art 356 [facility] Blood specimen (specimen) 09/21/2016 12:20 PM EST 09/21/2016 12:20 PM EST Alirio Esparza MD POINT OF CARE TEST ORDERABLES Performing Organization Address City/State/[facility] Co de Phone Number [facility] [place] [address] * (ABNORMAL) BLOOD GAS 2 ARTERIAL (09/21/2016 [...] [facility] FIO2 Art 95 % [facility] Flow Art 0.7 LPM [facility] PF Ratio Art 313 [facility] Temp Art 36.7 Celsius [facility] Blood specimen (specimen) 09/21/2016 10:54 AM EST 09/21/2016 10:54 AM EST Alirio Esparza MD POINT OF CARE TEST ORDERABLES [facility] [place] [address] * Thrombin time (09/21/2016 10:50 AM EST) [...] HEMATOLOGY ORDERABLE S Performing Organization Address [facility] Co de Phone Number [facility] [place] [address] * Fibrinogen (09/21/2016 10:50 AM EST) [facility] Signature Fibrinogen 228 180 - 510 mg/dL [facility] [...] HEMATOLOGY ORDERABLE S Performing Organization Address [facility] Co de Phone Number [facility] [place] [address] * APTT (09/21/2016 10:50 AM EST) Partial Thromboplastin Time 32 25 - 35 sec [facility] Comment: The recommended therapeutic range for full dose, unfractionated heparin at [facility] is 80 ? 114 seconds. The use of the anti-Xa (heparin) level rather than the PTT is recommended for monitoring anticoagulation intensity in critically ill patients receiving unfractionated heparin by continuous IV infusion. Blood specimen (specimen) 09/21/2016 10:50 AM EST 09/21/2016 10:56 AM EST Narrative Resulting Agency Comment Spec In Lab Luis Enrique Quarles MD HEMATOLOGY ORDERABLE S Performing Organization Address [facility] Co de Phone Number [facility] [place] [address] * (ABNORMAL) Prothrombin Time (09/21/2016 10:50 AM [...] HEMATOLOGY ORDERABLE S Performing Organization Address [facility] Co de Phone Number [facility] [place] [address] * (ABNORMAL) Hemogram (09/21/2016 10:50 AM EST) [...] Standard Deviation 42.6 37.0 - 46.0 fL [facility] RDW coefficient of variation 12.1 11.5 - 14.1 % [facility] Mean Platelet Volume 9.2 7.6 - 12.9 fL [facility] NRBC% auto 0.1 % [facility] NRBC Absolute 0.020(H) 0.000 - 0.000 x10(3)/mc L [facility] Blood specimen (specimen) 09/21/2016 10:50 AM EST 09/21/2016 10:56 AM EST Narrative Resulting Agency Comment Spec In Lab Luis Enrique Quarles MD HEMATOLOGY ORDERABLE S Performing Organization Address City/[facility]/ZIP Co de Phone Number [facility] [place] [address] * Prepare Platelets, Apheresis (09/21/2016 10:30 AM EST) Pathologist [facility] Dispensed? Yes [facility] Blood specimen (specimen) 09/21/2016 10:30 AM EST 09/21/2016 10:28 AM EST Alirio Esparza MD BLOOD BANK PRODUCT ORDERABLES Performing Organization Address City/[facility]/ZIP Co de Phone Number [facility] [place] [address] * (ABNORMAL) BLOOD GAS 2 ARTERIAL (09/21/2016 10:05 AM EST) pH, Arterial 7.33(L) 7.35 - 7.45 [facility] PCO2, Arterial 54(Critic al) 35 - 45 mmHg [facility] Comment:Noted by electrical instrumentation technician. PO2, Arterial 218(H) 85 - 104 mmHg [facility] Bicarbonate, Arterial 27.9(H) 20.0 - 26.0 mmol/L [facility] Base Excess, Arterial 2.0 -3.0 - 3.0 mmol/L [facility] Comment: Noted by electrical instrumentation technician. Please note: Patients with WBC [...] [facility] Temp Art 37.0 Celsius [facility] Blood specimen (specimen) 09/21/2016 10:05 AM EST 09/21/2016 10:05 AM EST Alirio Esparza MD POINT OF CARE TEST ORDERABLES [facility] [place] [address] * (ABNORMAL) BLOOD GAS 2 ARTERIAL (09/21/2016 9:44 AM EST) pH, Arterial 7.22(Criti gabrielle) 7.35 - 7.45 [facility] Comment:Noted by electrical instrumentation technician. PCO2, Arterial 70(Critica l) 35 - 45 mmHg [facility] Comment:Noted by electrical instrumentation technician. PO2, Arterial 224(H) 85 - [...] OF CARE TEST ORDERABLES Performing Organization Address City/[facility] Co de Phone Number [facility] [place] [address] * (ABNORMAL) Hemoglobin (09/21/2016 9:42 AM EST) Hemoglobin 7.2(L) 11.7 - 15.5 gm/dL [facility] Blood specimen (specimen) 09/21/2016 9:42 AM EST 09/21/2016 9:51 AM EST Narrative Resulting Agency Comment Spec In Lab Alirio Esparza MD HEMATOLOGY ORDERABL ES Performing Organization Address City/[facility] Co de Phone Number [facility] [place] [address] * Platelet count (09/21/2016 9:42 AM EST) Platelet 159 145 - 357 x10(3)/mc L [facility] Immature Plt % 1.6 0.0 - 7.4 % [facility] Comment: Limitation of the Immature Platelet Fraction (IPF)-May be less reliable when the platelet count is less than 61h009/uL due to statistical imprecision. The IPF value [...] in a decreased state of production. References: [employer] The Clinical Value of the Immature Platelet Fraction (IPF) in Cell Recovery Document Number 10-1143 12/2010 [employer] The Role of the Immature Platelet Fraction (IPF) in the Differential Diagnosis of Thrombocytopenia, Document MKT-[id number] V012/11/13 P012/13 Blood specimen (specimen) 09/21/2016 9:42 AM EST 09/21/2016 9:51 AM EST Narrative Resulting Agency Comment Spec In Lab Alirio Esparza MD HEMATOLOGY ORDERABL ES Performing Organization Address [facility] de Phone Number [facility] [place] [address] * (ABNORMAL) Hematocrit (09/21/2016 9:42 AM EST) [...] MD HEMATOLOGY ORDERABL ES Performing Organization Address [facility] Phone Number [facility] [place] [address] * Fibrinogen (09/21/2016 9:42 AM EST) Fibrinogen [...] MD HEMATOLOGY ORDERABL ES Performing Organization Address [facility] Co de Phone Number [facility] [place] [address] * (ABNORMAL) BLOOD GAS 2 ARTERIAL (09/21/2016 [...] [facility] Temp Art 37.0 Celsius [facility] Blood specimen (specimen) 09/21/2016 9:10 AM EST 09/21/2016 9:10 AM EST Alirio Esparza MD POINT OF CARE TEST ORDERABLES [facility] [place] [address] * Surgical Pathology Report (09/21/2016 9:09 AM EST) Final Diagnosis [id number] ?Location: 3T The signing pathologist has (i) [...] Esparza MD PATHOLOGY/CYTOLOGY ORDERABLES Performing Organization Address City/[facility]/[place] [address] * Specimen to Pathology (surgical or derm) (09/21/2016 9:09 AM EST) AP Specimen 09/21/2016 9:09 AM EST 09/21/2016 9:09 AM EST Narrative [facility] - 09/21/2016 9:09 AM EST Specimen requisition ordered. ??Separate Pathology report to follow Alirio Esparza MD PATHOLOGY/CYTOLOGY ORDERABLES Performing Organization Address [facility] [place] [address] * (ABNORMAL) BLOOD GAS 2 ARTERIAL (09/21/2016 [...] City/State/[facility] Co de Phone Number [facility] [place] [address] * (ABNORMAL) BLOOD GAS 2 ARTERIAL (09/21/2016 [...] [facility] FIO2 Art 95 % [facility] Flow Art 1.1 LPM [facility] PF Ratio Art 298 [facility] Temp Art 35.6 Celsius [facility] Blood specimen (specimen) 09/21/2016 8:18 AM EST 09/21/2016 8:18 AM EST Alirio Esparza MD POINT OF CARE TEST ORDERABLES Performing Organization Address [facility] de Phone Number [facility] [place] [address] * Prepare RBC (09/21/2016 7:05 AM EST) Pathologist [facility] Dispensed? Yes [facility] Blood specimen (specimen) 09/21/2016 7:05 AM EST 09/21/2016 7:02 AM EST Alirio Esparza MD BLOOD BANK PRODUCT ORDERABLES Performing Organization Address [facility] Co de Phone Number [facility] [place] [address] * POCT Glucose (09/21/2016 6:42 AM EST) Pathologist [facility] Glucose, POC 104 65 - 199 mg/dL [facility] Comment: Supplemental ranges: <140 mg/dL before meals <180 mg/dL all other times of the day Blood specimen (specimen) 09/21/2016 6:42 AM EST 09/21/2016 6:42 AM EST Alirio Esparza MD POINT OF CARE TEST ORDERABLES Performing Organization Address City/State/[facility] Co de Phone Number [facility] [place] [address] documented in this encounter Visit Diagnoses Not [...] dose on Wed09/21/16 at 1230, Until Discontinued, [place] teeth, Routine Given 09/25/2016 9:40 AM EST [...] Alie Whitfield RN)0551 (Given - Provider: Alie Whitifeld RN)1150 (Given - Provider: Marek Barnes RN)1852 (Given - Provider: Chaya Hill RN) 0000 (Not Given - Provider: lAie Whitfield RN - Reason: Patient/family refused)0600 (Not [...] RN) 08 (See Alternative - Provider: Marek Banres, VALDO) 0942 (See Alternative - Provider: Joselyn [...] dose on Wed09/21/16 at 1230, Until Discontinued, [place] teeth, Routine 0900 (Not Given - Provider: [...] earlier in shift)1100 (Given - Provider: Marek aBrnes RN)2044 (Given - Provider: Alie Whitfield RN) [...] Routine documented in this encounter Care Teams Administrative Tech Relationship Specialty Start Date End Date Deborah Quiroga, ANIMAL CONTROL LICENSING WORKER PCP - General Family Medicine 03/24/16 02/04/23 documented as of this encounter
--- OUTSIDE RECORDS SUMMARY | 2024-06-08 14:15 | XMS_ITS | Encounter Summary ---
[place] [address] Care Team Providers Care Oncology Rep Name Role Phone Deborah Quiroga ANURAG Primary Care Provider [phone]- [phone] Reason for Visit * Reason Onset Date Comments Medical Care Coordination 07/17/2016 Encounter Details Date Type Department Care Team ([facility] Contact Info) Description 07/17/2016 Telephone [place] [phone] Alexandrea Greenwood RN Medical Care Coordination Social [...] 07/17/2016 12:07 PM EST Message received from receptionist secretary: Injection/Infusion Referral Call placed to [phone]). Spoke w/ Pasquale. Services to be provided for pt are: Labs @ 10am ([facility]) & Neulasta @ 11am on 07/20/16, CBC only on 07/30/16 Pasquale confirmed they would provide services to pt and I left [facility] for pt to call for appt info. Pt demographics, office note, med list and orders faxed to [facility] & [facility] documented in this encounter Plan of Treatment Upcoming Encounters Date Type Department Care Team (Late st Contact Info) Description 06/23/2024 2:00 PM EST Office Visit [place] [address] Markel Borjas MD [facility] [address] HEMATOLOGY [place] [address] 11/02/2024 12:00 PM EDT [place] [phone] 11/02/2024 1:00 PM EDT Office [place] [phone] Magdalena Peralta MD [facility] [place] [address] 03/01/2025 4:15 PM EDT Office Visit Dermatology at [place] [address] [place] [phone] Marek Bonilla MD [address], [place] [address] documented as of this encounter Visit Diagnoses Not on filedocumented in this encounter Care Teams Oncology Rep Relationship Specialty Start Date End Date Deborah Quiroga APRN PCP - General Family Medicine 03/24/16 02/04/23 documented as of this encounter
--- OUTSIDE RECORDS SUMMARY | 2024-06-08 14:15 | XMS_ITS | Encounter Summary ---
[place] [address] Care Team Providers Care Butter Grader Name Role Phone Deborah Quiroga ANURAG Primary Care Provider [phone]- [phone] Reason for Visit * Reason Onset Date Comments Medical Care Coordination 07/31/2016 Encounter Details Date Type Department Care Team (Late st Contact Info) Description 07/31/2016 Telephone Hematology [place] [phone] Alexandrea Greenwood RN Medical Care Coordination Social [...] 08/04/15 RN spoke with Aydee of the [facility] lab who states they can draw pt's cbc on 08/04/15, RN faxed lab req to [phone] at Aydee's request. RN instructed pt on Dr. Borjas's direction above. Pt verbalized understanding. documented in this encounter Plan of Treatment Upcoming Encounters Date Type Department Care Team (Late st Contact Info) Description 06/23/2024 2:00 PM EST Office Visit Hematology [place] [address] Markel Borjas MD [facility] [address] HEMATOLOGY [place] [address] 11/02/2024 12:00 PM EDT Appointment Pulmonology at [place] [phone] 11/02/2024 1:00 PM EDT Office [place] [address] Magdalena Peralta MD [facility] [place] [address] 03/01/2025 4:15 PM EDT Office Visit Dermatology at [place] [address] [place] [address] Marek Bonilla MD [address], [address] DERMATOLOGY [place], [place] [phone] documented as of this encounter Visit Diagnoses Not on filedocumented in this encounter Care Teams Butter Grader Relationship Specialty Start Date End Date Deborah Quiroga APRN PCP - General Family Medicine 03/24/16 02/04/23 documented as of this encounter
--- OUTSIDE RECORDS SUMMARY | 2024-06-08 14:15 | XMS_ITS | Encounter Summary ---
Author Organization [facility] Address [facility] [place] [address] Care Team Providers Care Turfgrass Technician Name Role Phone Ashley Quirogan Cornelius ANURAG Primary Care Provider [phone]- [phone] Encounter Details Date Type Department Care Team (Late st Contact Info) Description 06/16/2016 Orders Only Hematology [place] [phone] Nitesh Pina Jr., MD [facility] [address] [place] [address] Cyclical neutropenia Social History Tobacco Use Types [...] EST Office Visit Hematology [place] [phone] Markel Borjas MD [facility] [address] [place] [address] 11/02/2024 12:00 PM EDT Appointment [place] [phone] 11/02/2024 1:00 PM EDT Office [place] [address] Magdalena Peralta MD [facility] [place] [address] 03/01/2025 4:15 PM EDT Office Visit Dermatology at [place] [address] [place] [phone] Marek Bonilla MD [address], [place] [address] documented as of this encounter Visit Diagnoses Diagnosis Cyclical neutropenia Cyclic neutropenia documented in this encounter Care Teams Turfgrass Technician Relationship Specialty Start Date End Date Deborah Quiroga APRN PCP - General Family Medicine 03/24/16 02/04/23 documented as of this encounter
--- OUTSIDE RECORDS SUMMARY | 2024-06-08 14:15 | XMS_ITS | Encounter Summary ---
Author Organization [facility] [place] [place] [address] Care Team Providers Care Studio Owner Name Role Phone Ashley Quirogazac Shields APRN Primary Care Provider [phone] Encounter Details Date Type Department Care Team (Late st Contact Info) Description 07/31/2016 External Results Hematology and Oncology at [place] [phone] Alexandrea Greenwood RN Neutropenia, unspecified type Social [...] Hematology [place] [address] Markel Borjas MD [facility] [address] [place] [address] 11/02/2024 12:00 PM EDT Appointment [place] [address] 11/02/2024 1:00 PM EDT Office Visit Rheumatology at [place] [phone] Magdalena Peralta MD [facility] [place] [address] 03/01/2025 4:15 PM EDT Office Visit Dermatology at [place] [address] [place] [phone] Marek Bonilla MD [address] [place] [address] documented as of this encounter Procedures Procedure [...] type documented in this encounter Care Teams Studio Owner Relationship Specialty Start Date End Date Deborah Quiroga APRN PCP - General Family Medicine 03/24/16 02/04/23 documented as of this encounter
--- OUTSIDE RECORDS SUMMARY | 2024-06-08 14:15 | XMS_ITS | Encounter Summary ---
[place] [address] Care Team Providers Care Technician Assistant Name Role Phone Junaid Deborah Shields APRN Primary Care Provider [phone] Reason for Visit * Auth/Cert Specialty Diagnoses / Procedures Referred By Crispin t Referred To Contact Diagnoses Aortic stenosis Procedures PRO REPLACE AORT VALV, PROSTH VALV @REPLACE AORTIC VALVE, OPEN, W\CPB, W\PROSTHETIC VALVE (WRVU 41.32) Referral ID Status Reason Start Date Expiration Date Visits Re quested Visits Authorized [id number] 1 1 Encounter Details Date Type Department Care Team (Late st Contact Info) Description 09/21/2016 7:25 AM EST Anesthesia Event [place] [address] Luis Enrique Quarles MD [facility] [place] [address] Henrik Cooper MD [facility] [place] [address] Anesthesia Record Procedure Summary Procedure Name Responsible [...] 0819 Sternotomy 0844 CV Bypass init 1009 Television Camera Operator 1014 An Clamp Remove 1031 CP [...] Tube 09/21/16 (#28 angled chest tube to [place]: left: pericardial); Left; 09/22/16; 1119 09/21/16 0000 by Toshia Alejandre RN 09/22/16 1119 by Vero Bonilla RN Chest Tube 09/21/16 (#28 straig ht chest tube to [place]; right: mediastinal'); Right; mediastinum; 09/22/16; 1118 09/21/16 0000 by Toshia Alejandre RN 09/22/16 1118 by Vero Bonilla RN (RETIRED) Peripheral IV Line - Single Lumen 09/21/16; 0648; metacarpal vein (top of hand), left; padv-oct-eenbay catheter system; 20 gauge; valdo Arteaga; 09/23/16; [...] Cooper MD - 09/21/2016 6:50 PM EST [facility] [place] Department of Anesthesiology Post-procedure Note Patient: Purnima Thacker Procedure Summary Date Anesthesia Start Anesthesia Stop Room / Location 09/21/16 07 1152 [facility] OR 16 / [facility] MAIN OR Procedure Diagnosis Surgeon Responsible Provider @REPLACE AORTIC VALVE, OPEN, W\CPB, W\PROSTHETIC VALVE (WRVU 41.32) (N/A Chest); @AORTOPLASTY FOR SUPRAVALVULAR STENOSIS (WRVU 29.33) (N/A Chest) () Alirio Francisco MD Clark, Jeffrey A, MD All Anesthesia Providers: Anesthesiologist: Luis Enrique Quarles MD Building Rigger: Henrik Cooper MD Last (1hr) Vitals: BP Temp 36.1 ??C (97 ??F) (09/21/16 1800) Pulse 79 (09/21/16 1800) Resp 11 (09/21/16 1800) SpO2 98 % (09/21/16 1800) Patient Location: [facility] Level of Consciousness: Sedated (Pharmacologic/Intentional) Pain [...] EST Office Visit Hematology [place] [phone] Markel Borjas MD [facility] [address] [place] [address] 11/02/2024 12:00 PM EDT Appointment [place] [phone] 11/02/2024 1:00 PM EDT Office [place] [address] Magdalena Peralta MD [facility] [place] [address] 03/01/2025 4:15 PM EDT Office Visit Dermatology at [place] [address] [place] [phone] Marek Bonilla MD [address] [address] documented as of this encounter Visit Diagnoses [...] mg documented in this encounter Care Teams Technician Assistant Relationship Specialty Start Date End Date Deborah Quiroga, PHOTONICS TECHNICIAN PCP - General Family Medicine 03/24/16 02/04/23 documented as of this encounter
--- OUTSIDE RECORDS SUMMARY | 2024-06-08 14:15 | XMS_ITS | Encounter Summary ---
Author Organization [facility] Address [facility] [place] [address] Care Team Providers Care Certified Cytotechnologist Name Role Phone Ashley Quirogazac Shields APRN Primary Care Provider [phone] Encounter Details Date Type Department Care Team (Late st Contact Info) Description 08/18/2016 Orders Only Cardiac Surgery at [place] [phone] Alirio Esparza MD Aortic valve stenosis, unspecified [...] Visit Hematology and Oncology at [place] [phone] Markel Borjas MD [facility] [address] [place] [address] 11/02/2024 12:00 PM EDT Appointment Pulmonology at [place] [phone] 11/02/2024 1:00 PM EDT Office Visit Rheumatology at [place] [phone] Magdalena Peralta MD [facility] [place] [address] 03/01/2025 4:15 PM EDT Office Visit Dermatology at [place] [address] [place] [address] Marek Bonilla MD [address], [address] DERMATOLOGY [place], [place] [phone] documented as of this encounter Results * Basic Metabolic Panel (non-fasting) (08/18/2016 4:50 PM EST) [facility] Glucose 82 65 - 199 mg/dL [facility] Comment:Diabetes: >=200 mg/d L plus symptoms Blood Urea Nitrogen 12 8 - 18 mg/dL [facility] Creatinine 0.87 0.70 - 1.20 mg/dL [facility] Comment: Please note that the pediatric reference intervals supplied above were not validated at [facility]. Results from pediatric patients should be interpreted in conjunction to the patient's age, height and muscle mass. Sodium 142 135 - 145 mmol/L [facility] Potassium 3.8 3.5 - 5.0 mmol/L [facility] Comment: Please note: ??Patients with WBC >100,000 may have falsely elevated Potassium levels. ??For accurate Potassium quantification in these patients send serum separator tube (gold top) for subsequent determinations. ??Contact the Clinical Chemistry Laboratory if there are any questions. Chloride 102 98 - 107 mmol/L [facility] Carbon Dioxide 26 22 - 31 mmol/L [facility] Anion Gap 14 5 - 15 mmol/L [facility] Calcium 9.7 8.5 - 10.5 mg/dL [facility] [...] the following links into your internet browser. [email or web address] Blood specimen (specimen) 08/18/2016 4:50 PM EST 08/18/2016 5:03 PM EST Narrative Resulting Agency Comment Spec In Lab Alirio Esparza MD CHEMISTRY ORDERABLE S [facility] [place] [phone] documented in this encounter Visit Diagnoses Diagnosis Aortic valve stenosis, unspecified etiology documented in this encounter Care Teams Certified Cytotechnologist Relationship Specialty Start Date End Date Deborah Quiroga APRN PCP - General Family Medicine 03/24/16 02/04/23 documented as of this encounter
--- OUTSIDE RECORDS SUMMARY | 2024-06-08 14:15 | XMS_ITS | Encounter Summary ---
Author Organization [facility] Address [facility] [place] [address] Care Team Providers Care Precision Agronomist Name Role Phone Ashley Quirogan Cornelius ANURAG Primary Care Provider [phone] Encounter Details Date Type Department Care Team (Late st Contact Info) Description 08/11/2016 Telephone Hematology [place] [phone] Markel Borjas MD [facility] [address] [place] [address] Social History Tobacco Use Types Packs/Day Years [...] EST Office Visit Hematology and Oncology at [place] [phone] Markel Borjas MD [facility] [address] [place] [address] 11/02/2024 12:00 PM EDT Appoint[place] [address] 11/02/2024 1:00 PM EDT Office Visit Rheumatology at [place] [phone] Magdalena Peralta MD [facility] [place] [address] 03/01/2025 4:15 PM EDT Office Visit Dermatology at [place] [address] [place] [address] Marek Bonilla MD [address], [place] [address] documented as of this encounter Visit Diagnoses Not on filedocumented in this encounter Care Teams Precision Agronomist Relationship Specialty Start Date End Date Deborah Quiroga APRN PCP - General Family Medicine 03/24/16 02/04/23 documented as of this encounter
--- OUTSIDE RECORDS SUMMARY | 2024-06-08 14:15 | XMS_ITS | Encounter Summary ---
Author Organization [facility] [place] [address] Care Team Providers Care Hospital Insurance Clerk Name Role Phone Ashley Quirogazac Shields APRN Primary Care Provider [phone] Encounter Details Date Type Department Care Team (Late st Contact Info) Description 07/22/2016 External Results Hematology and Oncology at [place] [phone] Alexandrea Greenwood RN Neutropenia, unspecified type Social [...] Office Visit Hematology [place] [address] Markel Borjas MD [facility] DR HEMATOLOGY [place] [address] 11/02/2024 12:00 PM EDT Appointment [place] [address] 11/02/2024 1:00 PM EDT Office Visit Rheumatology at [place] [phone] Magdalena Peralta MD [facility] [place] [address] 03/01/2025 4:15 PM EDT Office Visit Dermatology at [place] [address] [place] [address] Marek Bonilla MD [address], [place] [address] documented as of this encounter Procedures Procedure Name Priority Date/Time Associated Diagnosis Comments COPPER, SERUM Routine 07/20/2016 10:30 AM EST Neutropenia, unspecified type CMV PCR, QUANTITATIVE Routine 07/20/2016 10:30 AM EST Neutropenia, unspecified type MONONUCLEOSIS SCREEN (APD/[facility]) Routine 07/20/2016 10:30 AM EST Neutropenia, [...] type documented in this encounter Care Teams Hospital Insurance Clerk Relationship Specialty Start Date End Date Deborah Quiroga APRN PCP - General Family Medicine 03/24/16 02/04/23 documented as of this encounter
--- OUTSIDE RECORDS SUMMARY | 2024-06-08 14:15 | XMS_ITS | Encounter Summary ---
[place] [address] Care Team Providers Care Plastic Mould Maker Name Role Phone Ashley Quirogan Cornelius ANURAG Primary Care Provider [phone] Reason for Visit * Reason Onset Date Comments Medical Care Coordination 09/14/2016 Encounter Details Date Type Department Care Team (Late st Contact Info) Description 09/14/2016 Telephone Hematology [place] [address] Alexandrea Greenwood RN Medical Care Coordination Social [...] 09/14/2016 9:10 AM EST Message received from paralegal legal secretary: Injection/Infusion Referral Call placed to [facility] Infusion Room Spoke charis Bragg. Services to be provided for pt are: Miles 09/16/16 [facility] confirmed they would provide services to pt and would contact with appointment time. Pt aware to expect the phone call ??orders faxed to [phone]). documented in this encounter Plan of Treatment Upcoming Encounters Date Type Department Care Team (Late st Contact Info) Description 06/23/2024 2:00 PM EST Office Visit Hematology [place] [address] Markel Borjas MD [facility] DR HEMATOLOGY [place] [address] 11/02/2024 12:00 PM EDT [place] [address] 11/02/2024 1:00 PM EDT Office Visit Rheumatology at [place] [address] Magdalena Peralta MD [facility] [place] [address] 03/01/2025 4:15 PM EDT Office Visit Dermatology at [place] [address] [place] [address] Marek Bonilla MD [address] [place] [address] documented as of this encounter Visit Diagnoses Not on filedocumented in this encounter Care Teams Plastic Mould Maker Relationship Specialty Start Date End Date Deborah Quiroga APRN PCP - General Family Medicine 03/24/16 02/04/23 documented as of this encounter
--- OUTSIDE RECORDS SUMMARY | 2024-06-08 14:15 | XMS_ITS | Encounter Summary ---
[place] [address] Care Team Providers Care Wire Inserter Name Role Phone Ashley Quirogan Cornelius ANURAG Primary Care Provider [phone]- [phone] Reason for Visit * Reason Onset Date Comments Medication Management 09/14/2016 Encounter Details Date Type Department Care Team (Late st Contact Info) Description 09/14/2016 Telephone Hematology [place] [phone] Alexandrea Greenwood, international affairs vice president Management Social History Tobacco Use Types Packs/Day [...] 09/14/2016 9:12 AM EST Message received from hospice patient care secretary: Purnima called, asking for clarification on [...] EST Office Visit Hematology and Oncology at [place] [phone] Markel Borjas MD [facility] [address] HEMATOLOGY [place] [address] 11/02/2024 12:00 PM EDT Appointment [place] [address] 11/02/2024 1:00 PM EDT Office Visit Rheumatology at [place] [phone] Magdalena Peralta MD [facility] [place] [address] 03/01/2025 4:15 PM EDT Office Visit Dermatology at [address] [place] [address] Marek Bonilla MD [address], [place] [address] documented as of this encounter Visit Diagnoses Not on filedocumented in this encounter Care Teams Wire Inserter Relationship Specialty Start Date End Date Deborah Quiroga APRN PCP - General Family Medicine 03/24/16 02/04/23 documented as of this encounter
--- OUTSIDE RECORDS SUMMARY | 2024-06-08 14:15 | XMS_ITS | Encounter Summary ---
Author Organization [facility] Address [facility] [place] [address] Care Team Providers Care Product Safety Associate Name Role Phone Junaid, Deborah Shields APRN Primary Care Provider [phone] Encounter Details Date Type Department Care Team (Late st Contact Info) Description 07/13/2016 External [place] [address] Provider, Scanning Social History Tobacco [...] EST Office Visit Hematology and Oncology at [place] [phone] Markel Borjas MD [facility] [place] [address] 11/02/2024 12:00 PM EDT Appointment [place] [address] 11/02/2024 1:00 PM EDT Office Visit Rheumatology at [place] [phone] Magdalena Peralta MD [facility] [place] [address] 03/01/2025 4:15 PM EDT Office Visit Dermatology at [place] [address] [place] [address] Marek Bonilla MD [address], [place] [address] documented as of this encounter Procedures Procedure Name Priority Date/Time Associated Diagnosis Comments SURGICAL PATHOLOGY SCAN Routine 07/13/2016 documented in this encounter Results * Scan Doc: Surgical Pathology (07/13/2016) Nitesh Pina Jr., MD MEDIA MGR SCAN EXT O RDR/RSLT documented in this encounter Visit Diagnoses Not on filedocumented in this encounter Care Teams Product Safety Associate Relationship Specialty Start Date End Date Deborah Quiroga APRN PCP - General Family Medicine 03/24/16 02/04/23 documented as of this encounter
--- OUTSIDE RECORDS SUMMARY | 2024-06-08 14:15 | XMS_ITS | Encounter Summary ---
[place] [address] Care Team Providers Care Director Of Customer Acquisition Name Role Phone Deborah Quiroga ANRUAG Primary Care Provider [phone] Encounter Details Date Type Department Care Team (Late st Contact Info) Description 09/11/2016 Orders Only Hematology [place] [address] Alexandrea Greenwood RN Social History [...] the original note were not included. [facility] [phone] Date: 09/11/16 Patient Name: Onesimo Thacker : 1955 Diagnosis: Neutropenia Referral to [site]: [facility] Orders: ? Growth factor: [x] Neulasta 6mg SQ injection x 1 on 09/16/16 Signature: Markel Borjas MD beeper # [id number] Co-signature [if needed]: documented in this encounter Plan of Treatment Upcoming Encounters Date Type Department Care Team (Late st Contact Info) Description 06/23/2024 2:00 PM EST Office Visit Hematology [place] [address] Markel Borjas MD [facility] DR [place] [address] 11/02/2024 12:00 PM EDT Appointment [place] [address] 11/02/2024 1:00 PM EDT Office [place] [address] Magdalena Peralta MD [facility] [place] [address] 03/01/2025 4:15 PM EDT Office Visit Dermatology at [place] [address] [place] [address] Marek Bonilla MD [address], [place] [address] documented as of this encounter Procedures Procedure Name Priority Date/Time Associated Diagnosis Comments TRANSESOPHAGEAL ECHOCARDIOGRAM (GAVINO) Routine 09/22/2016 documented in this encounter Results * Transesophageal Echocardiogram (GAVINO) (09/22/2016) Anatomical Region Laterality Modality Other 09/22/2016 Narrative 09/22/2016 8:30 AM EST Procedure: ?Transesophageal Echocardiogram Patient: ?ANDREW ONESIMO M ? (Age): 1955(61y) Med Rec#: ? [id number] ?Sex: ?M ? Site Loc: ? [facility] ?Ht / Wt: ??(cm)/ (kg) ? Pt. Loc: ?OR ? Study Date: ?? 09/21/2016 ?Pt. Type: Tape: ? Referring: Alirio Francisco Reading: Henrik Yarbrough ([id number]) Manager Hotel: Jacobo Patel ([id number]) Interpreting Fellow: Jacobo Patel ([id number]) Diagnosis: *Aortic valve disorders (424.1) CPT Codes: *Echo GAVINO Full (99217) Indication: ?? AVR for severe Rhythm: ? [...] ? Mid-Inferior ?Normal ? Mid-Inferoseptal ?Normal ? Lequire-Septal ? Normal ? Lequire-Anterior ? Normal ? Lequire-Lateral ?Normal ? Lequire-Inferior ? Normal ? Lequire-Tip ?Normal ? This report has been electronically signed by: Henrik Yarbruogh M.D. ? 09/22/2016 08:30:41 Images reviewed and interpretation verified [facility] Procedure Note Henrik Yarbrough MD - 09/22/2016 Procedure: Transesophageal Echocardiogram Patient: ANDREW Mejias (Age): 1955(61y) Med Rec#: [id number] Sex: M Site Loc: [facility] Ht / Wt: (cm)/ (kg) Pt. Loc: OR Study Date: 09/21/2016 Pt. Type: Tape: Referring: Alirio Francisco Reading: Henrik Yarbrough ([id number]) Manager Hotel: Jacobo Patel ([id number]) Interpreting Fellow: Jacobo Patel ([id number]) Diagnosis: *Aortic valve disorders (424.1) CPT Codes: *Echo GAVINO Full (79395) Indication: AVR for severe Rhythm: Sinus SUMMARY: [...] Normal Mid-Posterolateral Normal Mid-Inferior Normal Mid-Inferoseptal Normal Lequire-Septal Normal Lequire-Anterior Normal Lequire-Lateral Normal Lequire-Inferior Normal Lequire-Tip Normal This report has been electronically signed by: Henrik Yarbrough M.D. 09/22/2016 08:30:41 Images reviewed and interpretation verified [facility] Unknown ECHO ORDERABLES documented in this encounter Visit Diagnoses Not on filedocumented in this encounter Care Teams Director Of Customer Acquisition Relationship Specialty Start Date End Date Deborah Quiroga APRN PCP - General Family Medicine 03/24/16 02/04/23 documented as of this encounter
--- OUTSIDE RECORDS SUMMARY | 2024-06-08 14:15 | XMS_ITS | Encounter Summary ---
Author Organization [facility] Address [facility] [place] [address] Care Team Providers Care Channel Program Manager Name Role Phone Ashley Quirogan Cornelius ANURAG Primary Care Provider [phone]- [phone] Encounter Details Date Type Department Care Team (Late st Contact Info) Description 06/09/2016 Orders Only Hematology [place] [address] Nitesh Pina Jr., MD [facility] DR HEMATOLOGY [place] [address] Cyclical neutropenia Social History Tobacco Use Types [...] EST Office Visit Hematology [place] [address] Markel Borjas MD [facility] DR HEMATOLOGY [place] [address] 11/02/2024 12:00 PM EDT Appoint[place] [address] 11/02/2024 1:00 PM EDT Office [place] [address] Magdalena Peralta MD [facility] [place] [address] 03/01/2025 4:15 PM EDT Office Visit Dermatology at [place] [address] [place] [address] Marek Bonilla MD [address] [place] [address] documented as of this encounter Results * Immunophenotyping Flow Cytometry (06/09/2016 4:53 PM EST) Immunophenotyping Flow See Comment [facility] Comment: When completed by the Pathologist, the Flow Cytometry Report ([id number]) will display under the Pathology Results section within eD. Specimen of unknown material (specimen) 06/09/2016 4:53 PM EST 06/09/2016 5:00 PM EST Narrative Resulting Agency Comment Spec In Lab Nitesh Pina Jr., MD HEMATOLOGY ORDERABLE S [facility] [place] [address] documented in this encounter Visit Diagnoses Diagnosis Cyclical neutropenia Cyclic neutropenia documented in this encounter Care Teams Channel Program Manager Relationship Specialty Start Date End Date Deborah Quiroga APRN PCP - General Family Medicine 03/24/16 02/04/23 documented as of this encounter
--- OUTSIDE RECORDS SUMMARY | 2024-06-08 14:15 | XMS_ITS | Encounter Summary ---
Author Organization [facility] [place] [address] Care Team Providers Care Grinder Mill Operator Name Role Phone Ashley Quirogazac Shields APRN Primary Care Provider [phone] Encounter Details Date Type Department Care Team (Late st Contact Info) Description 08/04/2016 External Results Hematology and Oncology at [place] [phone] Alexandrea Greenwood RN Neutropenia, unspecified type Social [...] EST Office Visit [place] [address] Markel Borjas MD [facility] [place] [address] 11/02/2024 12:00 PM EDT Appoint[place] [address] 11/02/2024 1:00 PM EDT Office Visit Rheumatology at [place] [phone] Magdalena Peralta MD [facility] [place] [address] 03/01/2025 4:15 PM EDT Office Visit Dermatology at [place] [address] [place] [address] Marek Bonilla MD [address] [place] [address] documented as of this encounter Procedures Procedure [...] type documented in this encounter Care Teams Grinder Mill Operator Relationship Specialty Start Date End Date Deborah Quiroga APRN PCP - General Family Medicine 03/24/16 02/04/23 documented as of this encounter
--- OUTSIDE RECORDS SUMMARY | 2024-06-08 14:15 | XMS_ITS | Encounter Summary ---
Author Organization [facility] Address [facility] [place] [address] Care Team Providers Care Chief Information Officer Name Role Phone Ashley Quirogazac Shields APRN Primary Care Provider [phone] Encounter Details Date Type Department Care Team (Latest Contact Info) Description 08/18/2016 4:40 PM EST Laboratory Appointment Lab at [place] [phone] Aortic valve stenosis, unspecified etiology Social History [...] EST Office Visit Hematology and Oncology at [place] [phone] Markel Borjas MD [facility] [place] [address] 11/02/2024 12:00 PM EDT Appointment Pulmonology at [place] [phone] 11/02/2024 1:00 PM EDT Office Visit Rheumatology at [place] [phone] Magdalena Peralta MD [facility] [address] [place] [address] 03/01/2025 4:15 PM EDT Office Visit Dermatology at [place] [address] [place] [phone] Marek Bonilla MD [address], [place] [address] documented as of this encounter Procedures Procedure Name Priority Date/Time Associated Diagnosis Comments ABORH RECHECK STATUS Routine 08/18/2016 4:50 PM EST TYPE AND SCREEN, SDP (FUTURE SURGERY, [facility] SAME DAY [facility]GRAM ONLY) Routine 08/18/2016 4:50 [...] Esparza MD BLOOD BANK LAB [facility] [place] [address] * Antibody screen (08/18/2016 4:50 PM EST) Ab Screen Interp Negative [facility] Expires at [id number] on: 09/24/2016 [facility] Comment: Corrected from 09/17/16 12:00 [Unknown] on 09/09/16 02:32 by Shireen Treviño Blood specimen (specimen) 08/18/2016 4:50 PM EST 08/18/2016 5:11 PM EST Narrative Resulting Agency Comment Spec In Lab Alirio Esparza MD BLOOD BANK LAB [facility] Performing Organization Address [facility] Co de Phone Number [facility] [place] [address] * ABO/Rh Typing (08/18/2016 4:50 PM EST) Pathologist [facility] ABORH Type B Pos [facility] Blood specimen (specimen) 08/18/2016 4:50 PM EST 08/18/2016 5:11 PM EST Narrative Resulting Agency Comment Spec In Lab Alirio Esparza MD BLOOD BANK LAB [facility] Performing Organization Address [facility] de Phone Number [facility] [place] [address] * Basic Metabolic Panel (non-fasting) (08/18/2016 4:50 PM EST) [facility] Glucose 82 65 - 199 mg/dL [facility] Comment:Diabetes: >=200 mg/d L plus symptoms Blood Urea Nitrogen 12 8 - 18 mg/dL [facility] Creatinine 0.87 0.70 - 1.20 mg/dL [facility] Comment: Please note that the pediatric reference intervals supplied above were not validated at [facility]. Results from pediatric patients should be interpreted [...] the following links into your internet browser. [email or web address] [email or web address] Blood specimen (specimen) 08/18/2016 4:50 PM EST 08/18/2016 5:03 PM EST Narrative Resulting Agency Comment Spec In Lab Alirio Esparza MD CHEMISTRY ORDERABLE S Performing Organization Address City/State/[facility] Co de Phone Number [facility] [place] [address] documented in this encounter Visit Diagnoses Diagnosis Aortic valve stenosis, unspecified etiology documented in this encounter Care Teams Chief Information Officer Relationship Specialty Start Date End Date Deborah Quiroga APRN PCP - General Family Medicine 03/24/16 02/04/23 documented as of this encounter
--- OUTSIDE RECORDS SUMMARY | 2024-06-08 14:16 | XMS_ITS | Encounter Summary ---
Author Organization [facility] Address [facility] [place] [address] Care Team Providers Care Video Engineer Name Role Phone Eitan Danni ANURAG Primary Care Provider Encounter Details Date Type Department Care Team (Latest Contact Info) Description 01/23/2014 7:45 AM EDT - 01/23/2014 5:50 PM EDT Hospital Encounter [place] [address] Alan Jacobson MD [facility] [place] [address] Cardiomyopathy; SOB (shortness of breath) Discharge Disposition: [...] by your doctor, do not take any ddkh-qrt-pquuwfe medicines or herbal preparations without first discussing this with your doctor or pharmacist. There is the possibility of side effect and interactions when these are combined. Follow up Care Who to Call with Questions or Problems If there are any questions or problems that you think might be related to your cardiac cath or angioplasty, contact the sap administrator program control analyst by calling [facility] at . documented in [...] EST Office Visit Hematology [place] [address] Markel Borjas MD [facility] [address] HEMATOLOGY [place] [address] 11/02/2024 12:00 PM EDT Appointment [place] [address] 11/02/2024 1:00 PM EDT Office Visit Rheumatology at [place] [phone] Magdalena Peralta MD [facility] [place] [address] 03/01/2025 4:15 PM EDT Office Visit Dermatology at [place] [address] [place] [address] Marek Bonilla MD [address] [facility] [place] [address] documented as of this encounter Procedures Procedure Name Priority Date/Time Associated Diagnosis Comments ECHOCARDIOGRAM TRANSTHORACIC Routine 01/23/2014 3:17 PM EDT SOB (shortness of breath) documented in this encounter Results * Echocardiogram Transthoracic(Leb) (01/23/2014 3:17 PM EDT) Pathologist [facility] [place] EF 50 HEARTPopulr SYSTEM Anatomical Region Laterality Modality Other 01/23/2014 Narrative 01/23/2014 4:35 PM EDT Procedure: ? Transthoracic Echocardiogram Patient: ? ANDREW ONESIMO M ?(Age): 1955(58) Med Rec#: ?[id number] ? Sex: ?F ? [place] Loc: [place] ? Ht / Wt: ??158(cm)/93(kg) Pt. Loc: ? Adult Floor ?BSA: ?2.02 Study Date: ?01/23/2014 ? Pt. Type: Inpatient Tape: ? Referring: Lee Kincaid ([id number]) Referring: ANNALISA Hospital Cna: Miguel Beverly Diagnosis:CPT Code(s): ??Echo Full (79510), ??Spectral Doppler (75934), Color Doppler (59460), Indication(s): ??Aortic stenosis Rhythm: Sinus HR ?BP [...] ? Mid-Inferior ?Hypokinetic ? Mid-Inferoseptal ?Hypokinetic ? [place]-Septal ? Hypokinetic ? [place]-Anterior ? Hypokinetic ? [place]-Lateral ?Hypokinetic ? [place]-Inferior ? Hypokinetic ? [place]-Tip ?Hypokinetic ? Chambers ?Value ?Units (Range) ? [...] 01/23/2014 16:34:37 Images reviewed and interpretation verified [facility] Cardiac Ultrasound Laboratory Procedure Note Lee Kincaid MD - 01/23/2014 Procedure: Transthoracic Echocardiogram Patient: ANDREW Mejias (Age): 1955(58) Med Rec#: [id number] Sex: F Site Loc: [facility] Ht / Wt: 158(cm)/93(kg) Pt. Loc: Adult Floor BSA: 2.02 Study Date: 01/23/2014 Pt. Type: Inpatient Tape: Referring: Lee Kincaid ([id number]) Referring: ANNALISA Hospital Cna: Miguel Beverly Diagnosis:CPT Code(s): Echo Full (42534), Spectral Doppler (16544), Color Doppler (14505), Indication(s): Aortic stenosis Rhythm: Sinus HR BP [...] Hypokinetic Mid-Posterolateral Hypokinetic Mid-Inferior Hypokinetic Mid-Inferoseptal Hypokinetic [place]-Septal Hypokinetic [place]-Anterior Hypokinetic [place]-Lateral Hypokinetic [place]-Inferior Hypokinetic [place]-Tip Hypokinetic Chambers Value Units (Range) IVSd 2D [...] 01/23/2014 16:34:37 Images reviewed and interpretation verified [facility] Cardiac Ultrasound Laboratory Lee [...] RN) documented in this encounter Care Teams Video Engineer Relationship Specialty Start Date End Date Danni Laird APRN [address] [place] [address] PCP - General 01/23/14 11/11/14 documented as of this encounter
--- OUTSIDE RECORDS SUMMARY | 2024-06-08 14:16 | XMS_ITS | Encounter Summary ---
Author Organization [facility] [place] [address] Care Team Providers Care Linux Unix Engineer Name Role Phone Junaid, Deborah Shields APRN Primary Care Provider [phone] Encounter Details Date Type Department Care Team (Late st Contact Info) Description 05/19/2016 10:00 AM EDT Office [place] [phone] Alirio Esparza MD Nonrheumatic aortic valve stenosis [...] Visit Hematology and Oncology at [place] [phone] Markel Borjas MD [facility] [address] [place] [address] 11/02/2024 12:00 PM EDT Appointment [place] [address] 11/02/2024 1:00 PM EDT Office [place] [address] Magdalena Peralta MD [facility] [place] [address] 03/01/2025 4:15 PM EDT Office Visit Dermatology at [place] [address] [place] [phone] Marek Bonilla MD [address], [place] [address] documented as of this encounter Results * [...] (Bezet) 448 ms MUSE SYSTEM Calculated P [place] 37 degrees MUSE SYSTEM Calculated R [place] 31 degrees MUSE SYSTEM Calculated T [place] 25 degrees MUSE SYSTEM INTERPRETATION Normal sinus [...] the following links into your internet browser. [email or web address] Blood specimen (specimen) 05/19/2016 11:32 AM EDT 05/19/2016 11:41 AM EDT Narrative Resulting Agency Comment Spec In Lab Alirio Esparza MD [place] [address] documented in this encounter Visit Diagnoses Diagnosis Nonrheumatic aortic valve stenosis Aortic valve disorders Nonrheumatic aortic valve stenosis Aortic valve disorders documented in this encounter Care Teams Linux Unix Engineer Relationship Specialty Start Date End Date Deborah Quiroga, INSURANCE ACCOUNT ASSISTANT PCP - General Family Medicine 03/24/16 02/04/23 documented as of this encounter
--- OUTSIDE RECORDS SUMMARY | 2024-06-08 14:16 | XMS_ITS | Encounter Summary ---
Author Organization [facility] Address [facility] [place] [address] Care Team Providers Care Filament Cutter Name Role Phone Deborah Quiroga APRN Primary Care Provider [phone] Encounter Details Date Type Department Care Team (Latest Contact Info) Description 05/19/2016 11:52 AM EDT - 05/19/2016 11:59 PM EDT Hospital Encounter XRay at [address] [place] [address] Alirio Esparza MD Nonrheumatic aortic valve stenosis [...] Hematology [place] [address] Markel Borjas MD [facility] [address] [place] [address] 11/02/2024 12:00 PM EDT Appointment [place] [address] 11/02/2024 1:00 PM EDT Office Visit [place] [address] Magdalena Peralta MD [facility] [place] [address] 03/01/2025 4:15 PM EDT Office Visit Dermatology at [address] [place] [address] Marek Bonilla MD [address], [place] [address] documented as of this encounter Procedures Procedure [...] disorders documented in this encounter Care Teams Filament Cutter Relationship Specialty Start Date End Date Deborah Quiroga, ANURAG PCP - General Family Medicine 03/24/16 02/04/23 documented as of this encounter
--- OUTSIDE RECORDS SUMMARY | 2024-06-08 14:16 | XMS_ITS | Encounter Summary ---
Author Organization [facility] [place] [address] Care Team Providers Care Pediatric Clinical Nurse Specialist Name Role Phone Ashley Quirogazac Shields APRN Primary Care Provider [phone] Encounter Details Date Type Department Care Team (Late st Contact Info) Description 03/24/2016 Notes [place] [phone] Alfa Lua Social History Tobacco Use Types [...] assessments completed: Wadsworth Score: 6/6 IADL: 7/7 Brand Marketing Coordinator Strength Trials: 18.4, 15.0, 16.8 (right hand dominant) 5 meter walk test in seconds x3: 4.98, 4.88, 4.45 KCCQol: 98% Alfa Lua documented in this encounter Plan of Treatment Upcoming Encounters Date Type Department Care Team (Late st Contact Info) Description 06/23/2024 2:00 PM EST Office Visit Hematology [place] [address] Markel Borjas MD [facility] [address] [place] [address] 11/02/2024 12:00 PM EDT Appointment Pulmonology at [place] [address] 11/02/2024 1:00 PM EDT Office [place] [address] Magdalena Peralta MD [facility] DR [place] [address] 03/01/2025 4:15 PM EDT Office Visit Dermatology at [place] [address] [facility] [place] [address] Marek Bonilla MD [address], [place] [address] documented as of this encounter Visit Diagnoses Not on filedocumented in this encounter Care Teams Pediatric Clinical Nurse Specialist Relationship Specialty Start Date End Date Deborah Quiroga APRN PCP - General Family Medicine 03/24/16 02/04/23 documented as of this encounter
--- OUTSIDE RECORDS SUMMARY | 2024-06-08 14:16 | XMS_ITS | Encounter Summary ---
[place] [address] Care Team Providers Care Caser Name Role Phone Mitchell Wilkes MD Primary Care Provider [phone] Reason for Visit * Reason Onset Date Comments Other 01/18/2014 Encounter Details Date Type Department Care Team (Late st Contact Info) Description 01/18/2014 Telephone Cardiology at [address] [address] Jesusita Garces Other Social History [...] EST Office Visit Hematology [place] [address] Markel Borjas MD [facility] [address] [place] [address] 11/02/2024 12:00 PM EDT Appointment Pulmonology at [place] [address] 11/02/2024 1:00 PM EDT Office Visit Rheumatology at [place] [phone] Magdalena Peralta MD [facility] [place] [address] 03/01/2025 4:15 PM EDT Office Visit Dermatology at [place] [address] [facility] [place] [address] Marek Bonilla MD [address], [place] [address] documented as of this encounter Visit Diagnoses Not on filedocumented in this encounter Care Teams Caser Relationship Specialty Start Date End Date Mitchell Wilkes MD [facility] PCP - General 06/24/10 01/19/14 documented as of this encounter
--- OUTSIDE RECORDS SUMMARY | 2024-06-08 14:16 | XMS_ITS | Encounter Summary ---
Author Organization [facility] [place] [address] Care Team Providers Care Binder Caser Name Role Phone Mitchell Wilkes MD Primary Care Provider [phone] Encounter Details Date Type Department Care Team (Late st Contact Info) Description 01/19/2014 Orders Only Cardiology at [address] [address] Chele Randolph PA [facility] DR CARDIOLOGY DEPT. [place], [place] [phone] Cardiomyopathy (Primary Dx) Social History Tobacco Use [...] EST Office Visit [place] [address] Markel Borjas MD [facility] DR HEMATOLOGY AND ONCOLOGY [place], [place] [address] 11/02/2024 12:00 PM EDT Appoint[place] [address] 11/02/2024 1:00 PM EDT Office [place] [address] Magdalena Peralta MD [facility] [place] [address] 03/01/2025 4:15 PM EDT Office Visit Dermatology at [place] [address] [place] [address] Marek Bonilla MD [address], [place] [address] documented as of this encounter Procedures Procedure [...] cardiomyopathies documented in this encounter Care Teams Binder Caser Relationship Specialty Start Date End Date Mitchell Wilkes MD [facility] PCP - General 06/24/10 01/19/14 documented as of this encounter
--- OUTSIDE RECORDS SUMMARY | 2024-06-08 14:16 | XMS_ITS | Encounter Summary ---
Author Organization [facility] [place] [address] Care Team Providers Care Retail Store Associate Name Role Phone Eitan Danni OSBORN Primary Care Provider Encounter Details Date Type Department Care Team (Late st Contact Info) Description 01/23/2014 9:25 AM EDT - 01/23/2014 10:25 AM EDT [place] [address] Alan Jacobson MD [facility] [place] [address] CARDIAC CATHETERIZATION Social History Tobacco Use Types [...] by your doctor, do not take any tcql-okc-iqtaetr medicines or herbal preparations without first discussing this with your doctor or pharmacist. There is the possibility of side effect and interactions when these are combined. Follow up Care Who to Call with Questions or Problems If there are any questions or problems that you think might be related to your cardiac cath or angioplasty, contact the mechanist family consumer science teacher by calling [facility] at [...] EST Office Visit [place]ematology [place] [address] Markel Borjas MD [facility] DR [place]EMAT[place] [address] 11/02/2024 12:00 PM EDT Appointment [place] [address] 11/02/2024 1:00 PM EDT Office [place] [address] Magdalena Peralta MD [facility] DR RHEUMATOLOGY DEPT [place], [place] [address] 03/01/2025 4:15 PM EDT Office Visit Dermatology at [place] [address] [facility] [place] [address] Marek Bonilla MD [address] [facility], [place] [address] documented as of this encounter Procedures Procedure Name Priority Date/Time Associated Diagnosis Comments ECHOCARDIOGRAM TRANSTHORACIC Routine 01/23/2014 3:17 PM EDT SOB (shortness of breath) documented in this encounter Results * Echocardiogram Transthoracic(Leb) (01/23/2014 3:17 PM EDT) EF 50 HEARTFreedom Farms SYSTEM Anatomical Region Laterality Modality Other 01/23/2014 Narrative 01/23/2014 4:35 PM EDT Procedure: ? Transthoracic Echocardiogram Patient: ? ANDREW NOESIMO M ?(Age): 1955(58) Med Rec#: ?[id number] ? Sex: ?F ? [place] Loc: [place] [place] Ht / Wt: ??158(cm)/93(kg) Pt. Loc: ? Adult Floor ?BSA: ?2.02 Study Date: ?01/23/2014 ? Pt. Type: Inpatient Tape: ? Referring: Lee Kincaid ([id number]) Referring: ANNALISA Photocopy Operator: Miguel Beverly Diagnosis:CPT Code(s): ??Echo Full (05954), ??Spectral Doppler (17966), Color Doppler (67598), Indication(s): ??Aortic stenosis Rhythm: Sinus HR ?BP [...] ? Mid-Inferior ?Hypokinetic ? Mid-Inferoseptal ?Hypokinetic ? [place]-Septal ? Hypokinetic ? [place]-Anterior ? Hypokinetic ? [place]-Lateral ?Hypokinetic ? [place]-Inferior ? Hypokinetic ? [place]-Tip ?Hypokinetic ? Chambers ?Value ?Units (Range) ? [...] Patient: ANDREW Mejias (Age): 1955(58) Med Rec#: [id number] Sex: F [place] Loc: [facility] Ht / Wt: 158(cm)/93(kg) Pt. Loc: Adult Floor BSA: 2.02 Study Date: 01/23/2014 Pt. Type: Inpatient Tape: Referring: eLe Kincaid ([id number]) Referring: ANNALISA Photocopy Operator: Miguel Beverly Diagnosis:CPT Code(s): Echo Full (23145), Spectral Doppler (56338), Color Doppler (88323), Indication(s): Aortic stenosis Rhythm: Sinus HR BP [...] Hypokinetic Mid-Posterolateral Hypokinetic Mid-Inferior Hypokinetic Mid-Inferoseptal Hypokinetic [place]-Septal Hypokinetic [place]-Anterior Hypokinetic [place]-Lateral Hypokinetic [place]-Inferior Hypokinetic [place]-Tip Hypokinetic Chambers Value Units (Range) IVSd 2D [...] (Intra-Procedure), Routine 1231 (Given - Provid er: Nitseh Stern, VALDO) heparin (porcine) injection (CANCELED) ONCE [...] RN) documented in this encounter Care Teams Retail Store Associate Relationship Specialty Start Date End Date Danni Laird APRN [address] [facility] [place] [address] PCP - General 01/23/14 11/11/14 documented as of this encounter
--- OUTSIDE RECORDS SUMMARY | 2024-06-08 14:16 | XMS_ITS | Encounter Summary ---
Author Organization [facility] Address [facility] [place] [address] Care Team Providers Care Smutter Name Role Phone Junaid, Deborah Shields APRN Primary Care Provider [phone] [phone] Reason for Visit * Auth/Cert Specialty Diagnoses / Procedures Referred By Crispin t Referred To Contact Diagnoses AVS Procedures CARDIAC CATHETERIZATION Referral ID Status Reason Start Date Expiration Date Visits Re quested Visits Authorized [id number] 1 1 Encounter Details Date Type Department Care Team (Late st Contact Info) Description 06/03/2016 6:32 AM EDT - 06/03/2016 1:10 PM EDT Hospital Encounter [place] [phone] Anjum Oliveros II, MD [facility] [place] [address] Mario Alberto Escobedo MD [facility] [place] [address] Aortic valve stenosis, unspecified etiology; Nonrheumatic aortic [...] by your doctor, do not take any umte-aww-dqvjenk medicinesor herbal preparations without first discussing this with your doctor or pharmacist. There is the possibility of side effects and interactions when these are combined. Follow Up Care Who to call with questions or problems If there are any questions or problems that you think might be related to your cardiac cath or angioplasty, contact the cellophane worker scrap iron loader by calling [facility] at . * Patient Instructions* Felicia Corrigan - 06/03/2016 9:33 AM EDT Cardiology Instructions Call your doctor if: Chest pain, dyspnea, pain or swelling in legs occurs. If you have non-emergent questions between now and the time of your follow up appointments: -During 8am-5pm Wednesday through Wednesday call [phone] to speak with a nurse in the cardiology clinic -All other times call [phone] and ask to speak to the manager of clinical scrap iron loader. MEDICATIONS - restart your spironolactone, discontinue prior [...] Appointments: Primary care provider: Cardiology: Deborah Hahn, BUTTON BRADDER [phone] Follow up as planned or as needed. Dr. Esparza [phone] Other follow-up appointment: Hematology - Dr. Mario [...] EST Office Visit [place] [phone] Markel Borjas MD [facility] DR HEMATOLOGY [place] [address] 11/02/2024 12:00 PM EDT Appoint[place] [phone] 11/02/2024 1:00 PM EDT Office [place] [phone] Magdalena Peralta MD [facility] [place] [address] 03/01/2025 4:15 PM EDT Office Visit Dermatology at [address] [place] [phone] Marek Bonilla MD [address], [place] [address] documented as of this encounter Procedures Procedure [...] Tube HOLD (06/03/2016 11:45 AM EDT) Pathologist [facility] Green Hold Sample in lab. [facility] Blood specimen (specimen) Venous Draw / Unknown 06/03/2016 11:45 AM EDT 06/03/2016 12:12 PM EDT Mario Alberto Escobedo MD CHEMISTRY ORDERABLES [facility] [place] [address] * Methylmalonic acid, serum (06/03/2016 11:45 AM EDT) Pathologist [facility] Methylmalonic Acid (NOVEMBER) 0.21 <=0.40 nmol/mL [facility] Comment: Test Performed by: [facility] [place] [id number] Reflector Driller And Deburrer: Raymond Chaudhry II, M.D., Ph.D. Blood specimen (specimen) 06/03/2016 11:45 AM EDT 06/03/2016 1:57 PM EDT Narrative Resulting Agency Comment Spec In Lab Mario Alberto Escobedo MD LAB SEND OUT ORDERAB LES Performing Organization Address [facility]/ZIP Co de Phone Number [facility] [place] [address] * Granulocyte Antibody (06/03/2016 11:45 AM EDT) Pathologist [facility] Granulocyte Ab (NOVEMBER) Negative Not Applicable [facility] Comment: ADDITIONAL INFORMATION Method: Immunofluorescent Assay Performing Laboratory CLIA# [id number] This test was developed and its performance characteristics determined by [facility] in a manner consistent with CLIA requirements. This test has not been cleared or approved by the U.S. Food and Drug Administration. Test Performed by: [facility] [place] [address] Reflector Driller And Deburrer: Raymond Chaudhry II, M.D., Ph.D. Blood specimen (specimen) 06/03/2016 11:45 AM EDT 06/03/2016 1:57 PM EDT Narrative Resulting Agency Comment Spec In Lab Mario Alberto Escobedo MD LAB SEND OUT ORDERAB LES Performing Organization Address City/[facility] Co de Phone Number [facility] [place] [address] * TSH (06/03/2016 11:45 AM EDT) Thyroid Stimulating Hormone 2.18 0.27 - 4.20 mcIU/mL [facility] Blood specimen (specimen) 06/03/2016 11:45 AM EDT 06/03/2016 12:11 PM EDT Narrative Resulting Agency Comment Spec In Lab Mario Alberto Escobedo MD CHEMISTRY ORDERABLES Performing Organization Address [facility]/ZIP Co de Phone Number [facility] [place] [address] * Homocysteine Total, Plasma (06/03/2016 11:45 AM EDT) Homocystine 9 <=15 mcmol/L [facility] Blood specimen (specimen) 06/03/2016 11:45 AM EDT 06/03/2016 12:11 PM EDT Narrative Resulting Agency Comment Spec In Lab Mario Alberto Escobedo MD CHEMISTRY ORDERABLES Performing Organization Address [facility] Co de Phone Number [facility] [place] [address] * Folate, serum (06/03/2016 11:45 AM EDT) Folate >20.0 4.8 - 24.2 ng/mL [facility] Blood specimen (specimen) 06/03/2016 11:45 AM EDT 06/03/2016 12:04 PM EDT Narrative Resulting Agency Comment Spec In Lab Mario Alberto Escobedo MD CHEMISTRY ORDERABLES Performing Organization Address [facility] Co de Phone Number [facility] [place] [address] * (ABNORMAL) Sedimentation rate (06/03/2016 11:45 AM EDT) Sedimentation Rate Automated 41(H) 0 - 20 mm/hr [facility] Blood specimen (specimen) 06/03/2016 11:45 AM EDT 06/03/2016 12:04 PM EDT Narrative Resulting Agency Comment Spec In Lab Mario Alberto Escobedo MD HEMATOLOGY ORDERABLE S [facility] [place] [address] * Lactate Dehydrogenase (06/03/2016 11:45 AM EDT) Lactate Dehydrogenase 164 110 - 220 unit/L [facility] Blood specimen (specimen) 06/03/2016 11:45 AM EDT 06/03/2016 12:11 PM EDT Narrative Resulting Agency Comment Spec In Lab Mario Alberto Escobedo MD CHEMISTRY ORDERABLES [facility] [place] [address] * Comprehensive metabolic panel (non-fasting) (06/03/2016 11:45 [...] the following links into your internet browser. [email or web address] Blood specimen (specimen) 06/03/2016 11:45 AM EDT 06/03/2016 12:11 PM EDT Narrative Resulting Agency Comment Spec In Lab Mario Alberto Escobedo MD CHEMISTRY ORDERABLES [facility] [place] [address] documented in this encounter Visit Diagnoses Diagnosis [...] Hernandez) documented in this encounter Care Teams Smutter Relationship Specialty Start Date End Date Deborah Quiroga, BUTTON BRADDER PCP - General Family Medicine 03/24/16 02/04/23 documented as of this encounter
--- OUTSIDE RECORDS SUMMARY | 2024-06-08 14:16 | XMS_ITS | Encounter Summary ---
Author Organization [facility] Address [facility] [place] [address] Care Team Providers Care Pattern Scratcher Name Role Phone RomieDanni rouse ANURAG Primary Care Provider [phone] Encounter Details Date Type Department Care Team (Late st Contact Info) Description 01/23/2014 Orders Only Cardiology at [address] [address] Lee Kincaid MD [facility] [address] CARDIOLOGY [place], [place] [id number] SOB (shortness of breath) (Primary Dx) Social [...] EST Office Visit [place]ematology [place] [address] Markel Borjas MD [facility] [address] [place] [address] 11/02/2024 12:00 PM EDT Appointment [place] [address] 11/02/2024 1:00 PM EDT Office [place] [address] Magdalena Peralta MD [facility] [place] [address] 03/01/2025 4:15 PM EDT Office Visit Dermatology at [place] [address] [facility] [address] [facility] [place] [phone] Marek Bonilla MD [address], [place] [address] documented as of this encounter Results * Echocardiogram Transthoracic(Leb) (01/23/2014 3:17 PM EDT) Pathologist [employer] EF 50 HEARTLAB SYSTEM Anatomical Region Laterality Modality Other 01/23/2014 Narrative 01/23/2014 4:35 PM EDT Procedure: ? Transthoracic Echocardiogram Patient: ? KIRSTIE ECHOLS M ?(Age): 1955(58) Med Rec#: ?[id number] ? Sex: ?F ? Site Loc: ?[facility] ? Ht / Wt: ??158(cm)/93(kg) Pt. Loc: ? Adult Floor ?BSA: ?2.02 Study Date: ?01/23/2014 ? Pt. Type: Inpatient Tape: ? Referring: Lee Kincaid ([id number]) Referring: ANNALISA Heading Repairer: Miguel Beverly Diagnosis:CPT Code(s): ??Echo Full (28450), ??Spectral Doppler (55761), Color Doppler (59094), Indication(s): ??Aortic stenosis Rhythm: Sinus HR ?BP [...] ? Mid-Inferior ?Hypokinetic ? Mid-Inferoseptal ?Hypokinetic ? [place]-Septal ? Hypokinetic ? [place]-Anterior ? Hypokinetic ? [place]-Lateral ?Hypokinetic ? [place]-Inferior ? Hypokinetic ? [place]-Tip ?Hypokinetic ? Chambers ?Value ?Units (Range) ? [...] grad M ? 15 ? mmHg ? GEOVANNA(weor) ?1.1 ?cm2 (2 to 4) ? DOI [...] 01/23/2014 16:34:37 Images reviewed and interpretation verified [facility] Cardiac Ultrasound Laboratory Procedure Note Lee Kincaid MD - 01/23/2014 Procedure: Transthoracic Echocardiogram Patient: KIRSTIE Mejias (Age): 1955(58) Med Rec#: [id number] Sex: F Site Loc: [facility] Ht / Wt: 158(cm)/93(kg) Pt. Loc: Adult Floor BSA: 2.02 Study Date: 01/23/2014 Pt. Type: Inpatient Tape: Referring: Lee Kincaid ([id number]) Referring: ANNALISA Heading Repairer: Miguel Beverly Diagnosis:CPT Code(s): Echo Full (56980), Spectral Doppler (39415), Color Doppler (95393), Indication(s): Aortic stenosis Rhythm: Sinus HR BP [...] Hypokinetic Mid-Posterolateral Hypokinetic Mid-Inferior Hypokinetic Mid-Inferoseptal Hypokinetic [place]-Septal Hypokinetic [place]-Anterior Hypokinetic [place]-Lateral Hypokinetic [place]-Inferior Hypokinetic [place]-Tip Hypokinetic Chambers Value Units (Range) IVSd 2D [...] report has been electronically signed by: Lee iKncaid MD 01/23/2014 16:34:37 Images reviewed and interpretation verified [facility] Cardiac Ultrasound Laboratory Lee Kincaid MD ECHO ORDERABLES documented in this encounter Visit Diagnoses Diagnosis SOB (shortness of breath)- Primary Shortness of breath documented in this encounter Care Teams Pattern Scratcher Relationship Specialty Start Date End Date Danni Laird APRN [address] [place] [address] PCP - General 01/23/14 11/11/14 documented as of this encounter
--- OUTSIDE RECORDS SUMMARY | 2024-06-08 14:16 | XMS_ITS | Encounter Summary ---
Author Organization [facility] Address [facility] [place] [address] Care Team Providers Care Ship Scraper Name Role Phone Junaid Deborah Shields APRN Primary Care Provider [phone] [phone] Encounter Details Date Type Department Care Team (Latest Contact Info) Description 05/19/2016 11:00 AM EDT Clinical [place] [phone] Nonrheumatic aortic valve stenosis Social History Tobacco [...] EST Office Visit [place]ology [place] [address] Markel Borjas MD [facility] DR [place] [address] 11/02/2024 12:00 PM EDT Appointment [place] [phone] 11/02/2024 1:00 PM EDT Office [place] [phone] Magdalena Peralta MD [facility] [place] [address] 03/01/2025 4:15 PM EDT Office Visit Dermatology at [address] [place] [address] Marek Bonilla MD [address] [facility], [place] [address] documented as of this encounter Procedures Procedure [...] (Bezet) 448 ms MUSE SYSTEM Calculated [address] 37 degrees MUSE SYSTEM Calculated R [address] 31 degrees MUSE SYSTEM Calculated T [address] 25 degrees MUSE SYSTEM INTERPRETATION Normal sinus rhythm Normal ECG No previous ECGs available Confirmed by MD Becca, Deangelo ([id number]) on 05/19/2016 5:23:33 PM MUSE SYSTEM 05/19/2016 11:4 3 AM EDT 05/19/2016 5:23 PM EDT Alirio Esparza MD ECG ORDERABLES MUSE SYSTEM documented in this encounter Visit Diagnoses Diagnosis Nonrheumatic aortic valve stenosis Aortic valve disorders documented in this encounter Care Teams Ship Scraper Relationship Specialty Start Date End Date Deborah Quiroga, LADLE FILLER PCP - General Family Medicine 03/24/16 02/04/23 documented as of this encounter
--- OUTSIDE RECORDS SUMMARY | 2024-06-08 14:16 | XMS_ITS | Encounter Summary ---
Author Organization [facility] Address [facility] [place] [address] Care Team Providers Care Commercial Construction Project Manager Name Role Phone Ashley Quirogazac Shields APRN Primary Care Provider [phone] Encounter Details Date Type Department Care Team (Latest Contact Info) Description 05/19/2016 11:20 AM EDT Laboratory Appointment Lab at [place] [phone] Nonrheumatic aortic valve stenosis Social History Tobacco [...] Visit Hematology and Oncology at [place] [phone] Markel Borjas MD [facility] DR HEMATOLOGY [place] [address] 11/02/2024 12:00 PM EDT Appointment Pulmonology at [place] [phone] 11/02/2024 1:00 PM EDT Office Visit Rheumatology at [place] [phone] Magdalena Peralta MD [facility] [place] [address] 03/01/2025 4:15 PM EDT Office Visit Dermatology at [place] [address] [place] [phone] Marek Bonilla MD [address], [place] [address] documented as of this encounter Procedures Procedure Name Priority Date/Time Associated Diagnosis Comments SCAN, PERIPHERAL BLOOD Routine 05/19/2016 11:32 AM EDT HEMOGRAM Routine 05/19/2016 11:32 AM EDT Nonrheumatic aortic valve stenosis DIFFERENTIAL, AUTOMATED Routine 05/19/2016 11:32 AM EDT Nonrheumatic aortic valve stenosis TYPE AND SCREEN, SDP (FUTURE SURGERY, [facility] SAME DAY PROGRAM ONLY) [...] [facility] RBC Morphology Normal [facility] Blood specimen (specimen) 05/19/2016 11:32 AM EDT 05/19/2016 11:41 AM EDT Narrative Resulting Agency Comment Spec In Lab Alirio Esparza MD HEMATOLOGY ORDERABL ES [facility] [place] [address] * (ABNORMAL) Differential, Automated (05/19/2016 11:32 AM EDT) Neutrophil % 25.9 % [facility] Neutrophil Absolute 0.42(Crit ical) 1.70 - 6.10 x10(3)/mc L [facility] Comment: This result has been called to DR ALIRIO ESPARZA by Alivia Ibarra on 05 19 2016 at 1228, and has been read back. Lymph % 59.9 % [facility] Lymphocytes Abs 1.0 0.9 - 3.2 x10(3)/mc L [facility] Monocyte % 13.0 % [facility] Monocyte Abs 0.2(L) 0.3 - 0.9 x10(3)/mc L [facility] Eos % 0.6 % [facility] Eosinophils Abs 0.0 0.0 - 0.4 x10(3)/mc L [facility] Basophil % 0.6 % [facility] [...] MD HEMATOLOGY ORDERABL ES Performing Organization Address City/[facility]/ZIP Co de Phone Number [facility] [place] [address] * (ABNORMAL) Hemogram (05/19/2016 11:32 AM EDT) White Blood Cell 1.6(Criti gabrielle) 4.0 - 9.5 x10(3)/mc L [facility] Comment: This result has been called to DR ALIRIO ESPARZA by Alivia Ibarra on 05 19 2016 at 1228, and has been read back. Red Blood Cell 3.96(L) 4.00 - 5.21 x10(6)/mc L [facility] Hemoglobin 12.5 11.7 - 15.5 gm/dL [facility] Hematocrit 37.9 35.7 - 45.8 % [facility] Mean Cell Volume 95.7(H) 82.6 - 94.4 fL [facility] Mean Cell Hemoglobin 31.6 27.1 - 32.0 pg [facility] Mean Cell Hemoglobin Concentration 33.0 31.7 - 35.0 gm/dL [facility] Platelet 227 145 - 357 x10(3)/mc L [facility] RDW Standard Deviation 40.5 37.0 - 46.0 fL [facility] RDW coefficient of variation 11.5 11.5 - 14.1 % [facility] Mean Platelet Volume 8.4 7.6 - 12.9 fL [facility] NRBC% auto 0.0 % [facility] NRBC Absolute 0.000 0.000 - 0.000 x10(3)/mc L [facility] Blood specimen (specimen) 05/19/2016 11:32 AM EDT 05/19/2016 11:41 AM EDT Narrative Resulting Agency Comment Spec In Lab Alirio Esparza MD HEMATOLOGY ORDERABL ES [facility] [place] [address] * Antibody screen (05/19/2016 11:32 AM EDT) Ab Screen Interp Negative [facility] Expires at [id number] on: 07/03/2016 [facility] Comment: Corrected from 06/11/16 12:00 [Unknown] on 06/09/16 05:51 by Bethanie Tomlinson I.. Corrected from 07/03/16 12:00 [Unknown] on 05/21/16 06:00 by Shelia Barrera Blood specimen (specimen) 05/19/2016 11:32 AM EDT 05/19/2016 11:35 AM EDT Narrative Resulting Agency Comment Spec In Lab Alirio Esparza MD BLOOD BANK LAB [place] Performing Organization Address City/[facility]/ZIP Co de Phone Number [facility] [place] [address] * ABO/Rh Typing (05/19/2016 11:32 AM EDT) Pathologist [facility] ABORH Type B Pos [facility] Blood specimen (specimen) 05/19/2016 11:32 AM EDT 05/19/2016 11:35 AM EDT Narrative Resulting Agency Comment Spec In Lab Alirio Esparza MD BLOOD BANK LAB [place] [facility] [place] [address] * Basic Metabolic Panel (non-fasting) (05/19/2016 11:32 AM EDT) [facility] Glucose 86 65 - 199 mg/dL [facility] [...] the following links into your internet browser. [email or web address] Blood specimen (specimen) 05/19/2016 11:32 AM EDT 05/19/2016 11:41 AM EDT Narrative Resulting Agency Comment Spec In Lab Alirio Esparza MD CHEMISTRY ORDERABLE S [facility] [place] [address] documented in this encounter Visit Diagnoses Diagnosis Nonrheumatic aortic valve stenosis Aortic valve disorders documented in this encounter Care Teams Commercial Construction Project Manager Relationship Specialty Start Date End Date Deborah Quiroga APRN PCP - General Family Medicine 03/24/16 02/04/23 documented as of this encounter
--- OUTSIDE RECORDS SUMMARY | 2024-06-08 14:16 | XMS_ITS | Encounter Summary ---
Author Organization [facility] [place] [address] Care Team Providers Care Pallet Rectifier Name Role Phone Eitan Danni ANURAG Primary Care Provider +1 [phone] Encounter Details Date Type Department Care Team (Late st Contact Info) Description 01/22/2014 Telephone Cardiology at [address] [phone] Cynthia Arrington LPN Social History Tobacco Use [...] LPN - 01/23/2014 2:39 PM EDT This staff writer did not receive a call back [...] EST Office Visit Hematology [place] [phone] Markel Borjas MD [facility] [address] HEMATOLOGY [place] [address] 11/02/2024 12:00 PM EDT Appointment [place] [phone] 11/02/2024 1:00 PM EDT Office [place] [address] Magdalena Peralta MD [facility] [place] [address] 03/01/2025 4:15 PM EDT Office Visit Dermatology at [place] [address] [facility] [place] [address] Marek Bonilla MD [address] DERMATOLOGY [place], [place] [phone] documented as of this encounter Visit Diagnoses Not on filedocumented in this encounter Care Teams Pallet Rectifier Relationship Specialty Start Date End Date Danni Laird APRN [address] [place] [address] PCP - General 01/23/14 11/11/14 documented as of this encounter
--- OUTSIDE RECORDS SUMMARY | 2024-06-08 14:16 | XMS_ITS | Encounter Summary ---
Author Organization [facility] Address [facility] [place] [address] Care Team Providers Care Java Web Developer Name Role Phone Ashley Quirogan Cornelius ANURAG Primary Care Provider [phone] Encounter Details Date Type Department Care Team (Late st Contact Info) Description 05/22/2016 Orders Only Cardiology at [address] [phone] Chele Randolph PA [facility] [address] CARDIOLOGY DEPT. [place], [place] [id number] Aortic valve stenosis, unspecified etiology Social History [...] EST Office Visit [place]ematology [place] [address] Markel Borjas MD [facility] [address] HEMATOLOGY AND ONCOLOGY [place], [place] [phone] 11/02/2024 12:00 PM EDT [place]ointment [place] [address] 11/02/2024 1:00 PM EDT Office [place] [address] Magdalena Peralta MD [facility] [place] [address] 03/01/2025 4:15 PM EDT Office Visit Dermatology at [place] [address] [place] [phone] Marek Bonilla MD [address], [place] [address] documented as of this encounter Procedures Procedure Name Priority Date/Time Associated Diagnosis Comments CARDIAC CATHETERIZATION Routine 06/03/20 16 9:13 AM EDT Aortic valve stenosis, unspecified etiology documented in this encounter Results * CARDIAC CATHETERIZATION (06/03/2016 9:13 AM EDT) Anatomical Region Laterality Modality Other Narrative 06/03/2016 10:13 AM EDT ?[facility] ? Cardiac Catheterization/Intervention Report ? Patient Name: Purnima Thacker. ? Procedure Date: 06/03/2016 ? A #: [id number] ? Primary Physician: Fanny, Nitesh Shields ? Case #: [id number] ? File Name: [id number] ? Catheterization Order Number: [id number] ? [facility] ? Final Report [place], [place] ? Patient Name: ? Purnima M. Kirstie ? ID#: ?[id number] ? : ?1955 ? Procedure Date: ? [...] no symptom, no angina (w/i 14 days). [place] ?Cardiovascular Society angina class was 0. This [...] Procedure Note Nitesh Escobedo MD - 09/21/2016 [facility] Cardiac Catheterization/Intervention Report Patient Name: Purnima Thacker Procedure Date: 06/03/2016 A #: [id number] Primary Physician: Nitesh Escobedo Case #: [id number] File Name: [id number] Catheterization Order Number: [id number] [facility] FinalReport [place], [place] Patient Name: Purnima Thacker ID#:[id number] :1955 Procedure Date: June 03, 2016 Case [...] with: no symptom, no angina (w/i 14 days).[place] [employer] angina class was 0. This [...] etiology documented in this encounter Care Teams Java Web Developer Relationship Specialty Start Date End Date Deborah Quiroga, PRODUCT SALES ENGINEER PCP - General Family Medicine 03/24/16 02/04/23 documented as of this encounter
--- OUTSIDE RECORDS SUMMARY | 2024-06-08 14:16 | XMS_ITS | Encounter Summary ---
Author Organization [facility] [place] [address] Care Team Providers Care Civil Engineering Professor Name Role Phone Ashley Quirogazac Shields APRN Primary Care Provider [phone] Reason for Visit * Consultation (Urgent) - Closed Specialty Diagnoses / Procedures Referred By Contac t Referred To Contact Cardiac Surgery Diagnoses aortic stenosis, consideration for valve replacement Antelmo Burrell MD [address] [place] [address] [place] [address] Alirio Esparza MD [facility] DR C[place]IOTH[place]AC[place] [address] Referral ID Status Reason Start Date Expiration Date V isits Requested Visits Authorized [id number] Closed Connection Center 03/04/2016 03/04/2017 1 1 Encounter Details Date Type Department Care Team (Late st Contact Info) Description 03/24/2016 10:40 AM EDT Office [place] [phone] Alirio Esparza MD Aortic valve stenosis, unspecified [...] is a patient of Antelmo Burrell [facility] Cardiology. Mrs. Thacker is being sent [...] 30 minute visit, 20 minutes were spent [id number] with the patient discussing aortic stenosis and valve replacement. documented in this encounter Plan of Treatment Upcoming Encounters Date Type Department Care Team (Late st Contact Info) Description 06/23/2024 2:00 PM EST Office Visit Hematology [place] [address] Markel Borjas MD [facility] DR HEMATOLOGY [place] [address] 11/02/2024 12:00 PM EDT Appointment Pulmonology at [place] [phone] 11/02/2024 1:00 PM EDT Office [place] [phone] Magdalena Peralta MD [facility] [place] [address] 03/01/2025 4:15 PM EDT Office Visit Dermatology at [place] [address] [facility] [place] [phone] Marek Bonilla MD [address], [place] [address] documented as of this encounter Visit Diagnoses Diagnosis Aortic valve stenosis, unspecified etiology documented in this encounter Care Teams Civil Engineering Professor Relationship Specialty Start Date End Date Deborah Quiroga APRN PCP - General Family Medicine 03/24/16 02/04/23 documented as of this encounter
--- OUTSIDE RECORDS SUMMARY | 2024-06-08 14:16 | XMS_ITS | Encounter Summary ---
Author Organization [facility] Address [facility] [place] [address] Care Team Providers Care Real Estate Paralegal Name Role Phone Deborah Quiroga APRN Primary Care Provider [phone] Reason for Visit * Reason Comments Schedule Office Case * Consultation (Routine) - Closed Specialty Diagnoses / Procedures Referred By Contac t Referred To Contact Hematology and Oncology Diagnoses Leukopenia Neutropenia LEUKOPENIA W/NEUTROPENIA Procedures TC PEGFILGRASTIM, 6MG, INJECTION LEUKOPENIA W/NEUTROPENIA Alirio Esparza MD [facility] [place] [address] Mario Alberto Ramos Jr., MD [facility] DR [place]EMAT[place] [address] Referral ID Status Reason Start Date Expiration Date V isits Requested Visits Authorized [id number] Closed Consult, Test & Treat 07/17/2016 07/17/2017 1 1 Encounter Details Date Type Department Care Team (Late st Contact Info) Description 06/09/2016 3:00 PM EST Office Visit [place] [address] Mario Alberto Ramos Jr., MD [facility] [place] [address] Cyclical neutropenia Social History Tobacco Use Types [...] 06/09/2016 3:00 PM EST Hematology Outpatient Clinic [facility] Hematology Outpatient Consult [...] Unknown See Comment Flow Cytometry Report Unknown [id number] ... HematoPathology: Flow Cytometry DIAGNOSIS 1. No [...] EST Office Visit [place] [address] Markel Borjas MD [facility] DR [place] [address] 11/02/2024 12:00 PM EDT [place] [phone] 11/02/2024 1:00 PM EDT [place] [address] Magdalena Peralta MD [facility] [place] [address] 03/01/2025 4:15 PM EDT Office Visit Dermatology at [place] [address] [place] [phone] Marke Bonilla MD [address], [place] [address] documented as of this encounter Procedures Procedure [...] (06/09/2016 4:53 PM EST) Flow Cytometry Report [id number] ?Location: The signing pathologist has (i) examined [...] by the Clinical Flow Cytometry Laboratory at [facility]. It has not been cleared or [...] high complexity clinical laboratory testing. SPECIMEN PROCESSING [id number] Cells for immunophenotypic analysis were derived from peripheral blood. ??CD45 vs side scatter gating was utilized to identify a lymphoid analysis region that comprises approximately 49-51% of all cells. The following markers were assessed: CD2, CD3, CD4, CD5, CD7, CD8, CD10, CD16, CD19, CD45, CD56, CD57, kappa light chain, and lambda light chain. CLINICAL INFORMATION 60 yo female with neutropenia. LGL panel requested. [facility] 06/09/2016 4:53 PM EST Mario Alberto Ramos Jr., MD PATHOLOGY/CYTOLOGY O RDERABLES Performing Organization Address City/[facility]/ZIP Co de Phone Number [facility] [place] [place] [address] * Scan, Peripheral Blood (06/09/2016 4:53 PM EST) Pathologist [facility] Plat estimate Normal [facility] RBC Morphology Normal [facility] Blood specimen (specimen) 06/09/2016 4:53 PM EST 06/09/2016 5:00 PM EST Narrative Resulting Agency Comment Spec In Lab Mario Alberto Ramos Jr., MD HEMATOLOGY ORDERABLE S Performing Organization Address City/[facility]/ZIP Co de Phone Number [facility] [place] [address] * (ABNORMAL) Differential, Automated (06/09/2016 4:53 PM EST) Pathologist [facility] Neutrophil % 27.7 % [facility] Neutrophil Absolute 0.48(Crit ical) 1.70 - 6.10 x10(3)/ L [facility] Comment: Matches Previous Results.. This result has been called to NOT CALLED by Jesusita Argueta on 06 09 2016 at 1817, and has not been read back. MATCHES PREVIOUS RESULTS Lymph % 57.2 % [facility] Lymphocytes Abs 1.0 0.9 - 3.2 x10(3)/mc L [facility] Monocyte % 13.3 % [facility] Monocyte Abs 0.2(L) 0.3 - 0.9 x10(3)/ L [facility] Eos % 0.6 % [facility] Eosinophils Abs 0.0 0.0 - 0.4 x10(3)/[facility] Basophil % 1.2 % [facility] Baso Absolute 0.0 0.0 - 0.1 x10(3)/[facility] Immature Gran % 0.00 % [facility] Comment: Immature granulocytes(IG's)percentage and absolute count will include metamyelocytes, myelocytes, and promyelocytes. Blood smears from CBCs yielding IG's will be scanned manually for concordance. If this scan disagrees with the automated IG or if promyelocytes are noted, a manual differential will be performed. Immature Gran Absolute 0.00 0.00 - 0.04 x10(3)/ L [facility] Blood specimen (specimen) 06/09/2016 4:53 PM EST 06/09/2016 5:00 PM EST Narrative Resulting Agency Comment Spec In Lab Mario Alberto Ramos Jr., MD HEMATOLOGY ORDERABLE S [facility] [place] [address] * (ABNORMAL) Hemogram (06/09/2016 4:53 PM EST) White Blood Cell 1.7(Criti gabrielle) 4.0 - 9.5 x10(3)/ L [facility] Red Blood Cell 3.92(L) 4.00 - 5.21 x10(6)/mc L [facility] Hemoglobin 12.4 11.7 - 15.5 gm/dL [facility] Hematocrit 36.7 35.7 - 45.8 % [facility] Mean Cell Volume 93.6 82.6 - 94.4 fL [facility] Mean Cell Hemoglobin 31.6 27.1 - 32.0 pg [facility] Mean Cell Hemoglobin Concentration 33.8 31.7 - 35.0 gm/dL [facility] Platelet 234 145 - 357 x10(3)/mc L [facility] RDW Standard Deviation 39.8 37.0 - 46.0 fL [facility] RDW coefficient of variation 11.8 11.5 - 14.1 % [facility] Mean Platelet Volume 8.6 7.6 - 12.9 fL [facility] NRBC% auto 0.0 % [facility] NRBC Absolute 0.000 0.000 - 0.000 x10(3)/mc L [facility] Blood specimen (specimen) 06/09/2016 4:53 PM EST 06/09/2016 5:00 PM EST Narrative Resulting Agency Comment Spec In Lab Mario Alberto Ramos Jr., MD HEMATOLOGY ORDERABLE S Performing Organization Address City/State/[facility] Co de Phone Number [facility] [address] * Immunophenotyping Flow Cytometry (06/09/2016 4:53 PM EST) Immunophenotyping Flow See Comment [facility] Comment: When completed by the Pathologist, the Flow Cytometry Report ([id number]) will display under the Pathology Results section within [facility]. Specimen of unknown material (specimen) 06/09/2016 4:53 PM EST 06/09/2016 5:00 PM EST Narrative Resulting Agency Comment Spec In Lab Mario Alberto Ramos Jr., MD HEMATOLOGY ORDERABLE S [facility] [address] documented in this encounter Visit Diagnoses Diagnosis Cyclical neutropenia Cyclic neutropenia documented in this encounter Care Teams Real Estate Paralegal Relationship Specialty Start Date End Date Deborah Quiroga, GROUND CREW LINES PERSON PCP - General Family Medicine 03/24/16 02/04/23 documented as of this encounter
--- OUTSIDE RECORDS SUMMARY | 2024-06-08 14:16 | XMS_ITS | Encounter Summary ---
Author Organization [facility] Address [facility] [place] [address] Care Team Providers Care Health And Social Care Teacher Name Role Phone Junaid, Deborah Shields APRN Primary Care Provider [phone] Reason for Visit * Auth/Cert Specialty Diagnoses / Procedures Referred By Crispin t Referred To Contact Diagnoses AVS Procedures CARDIAC CATHETERIZATION Referral ID Status Reason Start Date Expiration Date Visits Re quested Visits Authorized [id number] 1 1 Encounter Details Date Type Department Care Team (Late st Contact Info) Description 06/03/2016 7:30 AM EDT - 06/03/2016 8:30 AM EDT [place] [phone] Mario Alberto Escobedo MD [facility] [place] [address] CARDIAC CATHETERIZATION Social History Tobacco Use Types [...] by your doctor, do not take any [id number]-rho-[id number] medicinesor herbal preparations without first discussing this with your doctor or pharmacist. There is the possibility of side effects and interactions when these are combined. Follow Up Care Who to call with questions or problems If there are any questions or problems that you think might be related to your cardiac cath or angioplasty, contact the manager solution teacher of the emotionally disturbed by calling [facility] at . * Patient Instructions* Felicia Corrigan - 06/03/2016 9:33 AM EDT Cardiology Instructions Call your doctor if: Chest pain, dyspnea, pain or swelling in legs occurs. If you have non-emergent questions between now and the time of your follow up appointments: -During 8am-5pm Wednesday through Wednesday call [phone] to speak with a nurse in the cardiology clinic -All other times call [phone] and ask to speak to the lighter captain teacher of the emotionally disturbed. MEDICATIONS - restart your spironolactone, discontinue prior [...] Appointments: Primary care provider: Cardiology: Deborah Hahn, VP GLOBAL [phone] Follow up as planned or as needed. Dr. Esparza [phone] Other follow-up appointment: Hematology - Dr. Mario [...] EST Office Visit [place] [address] Markel Borjas MD [facility] DR HEMATOLOGY [place] [address] 11/02/2024 12:00 PM EDT [place] [address] 11/02/2024 1:00 PM EDT [place] [address] Magdalena Peralta MD [facility] [place] [address] 03/01/2025 4:15 PM EDT Office Visit Dermatology at [place] [address] [place] [address] Marek Bonilla MD [address] [place] [address] documented as of this encounter Procedures Procedure [...] EDT Mario Alberto Escobedo MD CHEMISTRY ORDERABLES [facility] [place] [address] * Methylmalonic acid, serum (06/03/2016 11:45 AM EDT) Methylmalonic Acid (NOVEMBER) 0.21 <=0.40 nmol/mL [facility] Comment: Test Performed by: [address] [address] Fruit Buyer: Raymond Chaudhry II, M.D., Ph.D. Blood specimen (specimen) 06/03/2016 11:45 AM EDT 06/03/2016 1:57 PM EDT Narrative Resulting Agency Comment Spec In Lab Mario Alberto Escobedo MD LAB SEND OUT ORDERAB LES Performing Organization Address [facility] Co de Phone Number [facility] [place] [address] * Granulocyte Antibody (06/03/2016 11:45 AM EDT) Granulocyte Ab (NOVEMBER) Negative Not Applicable [facility] Comment: ADDITIONAL INFORMATION Method: Immunofluorescent Assay Performing Laboratory CLIA# [id number] This test was developed and its performance characteristics determined by [facility] in a manner consistent with CLIA requirements. This test has not been cleared or approved by the U.S. Food and Drug Administration. Test Performed by: [place] [address] Fruit Buyer: Raymond Chaudhry II, M.D., Ph.D. Blood specimen (specimen) 06/03/2016 11:45 AM EDT 06/03/2016 1:57 PM EDT Narrative Resulting Agency Comment Spec In Lab Mario Alberto Escobedo MD LAB SEND OUT ORDERAB LES Performing Organization Address [facility] Co de Phone Number [facility] [place] [address] * TSH (06/03/2016 11:45 AM EDT) Thyroid Stimulating Hormone 2.18 0.27 - 4.20 mcIU/mL [facility] Blood specimen (specimen) 06/03/2016 11:45 AM EDT 06/03/2016 12:11 PM EDT Narrative Resulting Agency Comment Spec In Lab Mario Alberto Escobedo MD CHEMISTRY ORDERABLES Performing Organization Address [facility] Co de Phone Number [facility] [place] [address] * Homocysteine Total, Plasma (06/03/2016 11:45 AM EDT) Homocystine 9 <=15 mcmol/L [facility] Blood specimen (specimen) 06/03/2016 11:45 AM EDT 06/03/2016 12:11 PM EDT Narrative Resulting Agency Comment Spec In Lab Mario Alberto Escobedo MD CHEMISTRY ORDERABLES [facility] [place] [address] * Folate, serum (06/03/2016 11:45 AM EDT) Folate >20.0 4.8 - 24.2 ng/mL [facility] Blood specimen (specimen) 06/03/2016 11:45 AM EDT 06/03/2016 12:04 PM EDT Narrative Resulting Agency Comment Spec In Lab Mario Alberto Escobedo MD CHEMISTRY ORDERABLES Performing Organization Address City/[facility]/ZIP Co de Phone Number [facility] [place] [address] * (ABNORMAL) Sedimentation rate (06/03/2016 11:45 AM EDT) Sedimentation Rate Automated 41(H) 0 - 20 mm/hr [facility] Blood specimen (specimen) 06/03/2016 11:45 AM EDT 06/03/2016 12:04 PM EDT Narrative Resulting Agency Comment Spec In Lab Mario Alberto Escobedo MD HEMATOLOGY ORDERABLE S [facility] [place] [address] * Lactate Dehydrogenase (06/03/2016 11:45 AM EDT) Lactate Dehydrogenase 164 110 - 220 unit/L [facility] Blood specimen (specimen) 06/03/2016 11:45 AM EDT 06/03/2016 12:11 PM EDT Narrative Resulting Agency Comment Spec In Lab Mario Alberto Escobedo MD CHEMISTRY ORDERABLES [facility] [place] [address] * Comprehensive metabolic panel (non-fasting) (06/03/2016 11:45 [...] the following links into your internet browser. [email or web address] Blood specimen (specimen) 06/03/2016 11:45 AM EDT 06/03/2016 12:11 PM EDT Narrative Resulting Agency Comment Spec In Lab Mario Alberto Escobedo MD CHEMISTRY ORDERABLES [facility] [place] [address] documented in this encounter Visit Diagnoses Diagnosis [...] Hernandez) documented in this encounter Care Teams Health And Social Care Teacher Relationship Specialty Start Date End Date Deborah Quiroga APRN PCP - General Family Medicine 03/24/16 02/04/23 documented as of this encounter
--- OUTSIDE RECORDS SUMMARY | 2024-06-08 14:16 | XMS_ITS | Encounter Summary ---
Author Organization [facility] [place] [address] Care Team Providers Care Fisher Pot Name Role Phone Jerel Sofia Garcia APRN Primary Care Provider [phone] Encounter Details Date Type Department Care Team (Latest Contact Info) Description 11/12/2014 8:10 AM EDT - 11/12/2014 11:59 PM EDT Hospital [place] [phone] CLINIC, DR ABE Burrell, Antelmo Porter MD [facility] [address] [place], [place] [address] Discharge Disposition: Home Social History Tobacco Use [...] EST Office Visit Hematology [place] [address] Markel Borjas MD [facility] DR HEMATOLOGY [place] [address] 11/02/2024 12:00 PM EDT Appointment [place] [address] 11/02/2024 1:00 PM EDT Office [place] [phone] Magdalena Peralta MD [facility] [place] [address] 03/01/2025 4:15 PM EDT Office Visit Dermatology at [place] [address] [facility] [place] [address] Marek Bonilla MD [address] [facility] [address] [place] [address] documented as of this encounter Procedures Procedure [...] mLs documented in this encounter Care Teams Fisher Pot Relationship Specialty Start Date End Date Sofia Beltrán APRN [address] [place] [address] PCP - General 11/12/14 03/23/16 documented as of this encounter
--- OUTSIDE RECORDS SUMMARY | 2024-06-13 14:08 | XMS_ITS | Referral Summary ---
Author Organization [facility] Address [address] [place] [address] Care Team Providers Care Research Chief Engineer Name Role Phone Nicole Chavezi WILLIAM Primary Care Provider [phone] Encounters Date Type Department Care Team Description 03/22/2024 Lab Requisition [facility] Pathology & Laboratory [address] [address] Consuelo Guerrero, DO Diaphragmatic hernia without obstruction or gangrene; Anemia, unspecified 03/21/2024 Lab Requisition [facility] Pathology & Laboratory [address] [address] Consuelo Guerrero, DO Encounter for other general examination 03/21/2024 Lab Requisition [facility]ology & Laboratory [address] [address] Outr Resulting Lab, Provider from Last 3 Months Social History Tobacco Use Types Packs/Day Years Used Date Smoking Tobacco: Never Assessed Interpersonal Safety Answer Date Record ed Physically Hurt Never 03/03/2020 Verbally Threaten Not on file 03/03/2020 Comments Unknown Sex and Gender Information Value Date Recorded Sex Assigned at Not on file Legal Sex Female 17:34 EST Gender Identity Not on file Sexual Orientation [...] Negative 03/21/2024 22:31 EDT [facility] Blood VENOUS BLOOD / Unknown 03/21/2024 13:00 EDT 03/21/2024 21:51 EDT Consuelo Guerrero DO BLOOD BANK TESTS Final Result Performing Organization Address [facility]/ZIP Co de Phone Number [facility] [address] [place] [address] * HAPTOGLOBIN (03/21/2024 13:00 EDT) Haptoglobin 183 32 - 197 mg/dL 03/22/2024 10:25 EDT [facility] Blood VENOUS BLOOD / Unknown 03/21/2024 13:00 EDT 03/21/2024 21:50 EDT us Provider Outr Resulting Lab CHEMISTRY & BLOOD GA S ORDERABLES Final Result Performing Organization Address City/[facility]/ZIP Co de Phone Number [facility] [address] [place] [address] * SURGICAL PATHOLOGY (03/21/2024 11:35 EDT) Note to Patient The following pathology results have been interpreted by your pathologist and may be available to you before your health provider has had the opportunity to review them. Please allow time for your provider to receive these results and explore management options, if applicable. 03/24/2024 10:36 EDT [facility] Final Diagnosis A. JEJUNUM, [...] 9:36 03/24/2024 10:36 EDT [facility] Resident/Estuardo w: Luis Felipe Bragg DO 03/24/2024 10:36 EDT [facility] Performing Lab [facility] 10:36 EDT [facility] Scanned Images 03/24/2024 10:36 EDT [facility] Tissue POLYP OF COLON [...] Unknown 03/21/2024 11:35 EDT 03/22/2024 8:19 EDT us Consuelo Guerrero DO PATHOLOGY ORDERABLES Final Re sult [facility] [address] [place] [address] from Last 3 Months Insurance MEDICARE [facility] Care Teams Research Chief Engineer Relationship Specialty Start Date End Date Ashley Chavez ARNP [address] [place] [address] PCP - General 07/11/10
--- OUTSIDE RECORDS SUMMARY | 2024-06-13 14:08 | XMS_ITS | Clinical Summary ---
Author Organization [facility] Address [address] [place] [address] Care Team Providers Care Digital Court Reporter Name Role Phone Ashley Chavez Primary Care Provider [phone] Encounters Date Type Department Care Team Description 03/22/2024 Lab Requisition [facility] Pathology & Laboratory [address] [address] Consuelo Guerrero, DO Diaphragmatic hernia without obstruction or gangrene; Anemia, unspecified 03/21/2024 Lab Requisition [facility] [address] [address] Consuelo Guerrero, DO Encounter for other general examination 03/21/2024 Lab Requisition [facility] [address] [address] Outr Resulting Lab, Provider from Last 3 [...] Last Done Comments Hepatitis C Screen 1955 Fall Risk Screening 2020 COVID-19 Vaccine (2023-25 season) 2024 RSV Immunization ( o r 60+ Years) (1 - 1-dose 75+ series) 2030 Procedures Procedure Name Priority Date/Time Associated Diagnosis Comments DIRECT ANTIGLOBULIN TEST Today 03/21/2024 13:00 EDT Encounter for other general examination HAPTOGLOBIN Routine 03/21/2024 13:00 EDT SURGICAL PATHOLOGY Today 03/21/2024 11 :35 EDT Diaphragmatic hernia without obstruction or gangrene Anemia, unspecified from Last 3 Months Results * DIRECT ANTIGLOBULIN TEST (03/21/2024 13:00 EDT) LORY Negative 03/21/2024 22:31 EDT [facility] Blood VENOUS BLOOD / Unknown 03/21/2024 13:00 EDT 03/21/2024 21:51 EDT Consuelo Guerrero DO BLOOD BANK TESTS Final Result Performing Organization Address City/[facility]/ZIP Co de Phone Number [facility] [address] [place] [phone] * HAPTOGLOBIN (03/21/2024 13:00 EDT) Haptoglobin 183 32 - 197 mg/dL 03/22/2024 10:25 EDT [facility] Blood VENOUS BLOOD / Unknown 03/21/2024 13:00 EDT 03/21/2024 21:50 EDT us Provider Outr Resulting Lab CHEMISTRY & BLOOD GA S ORDERABLES Final Result [facility] [address] [place] [address] * SURGICAL PATHOLOGY (03/21/2024 11:35 EDT) Note to Patient The following pathology results have been interpreted by your pathologist and may be available to you before your health provider has had the opportunity to review them. Please allow time for your provider to receive these results and explore management options, if applicable. 03/24/2024 10:36 [facility] Final Diagnosis A. [...] - Deeper sections x3 examined. 03/24/2024 10:36 [facility] Attestation There was significant resident/fellow involvement in the diagnostic evaluation of this case. By the signature below, the attending physician certifies that they have personally conducted a gross and/or microscopic examination of the described specimens and rendered or confirmed the above diagnosis. 03/24/2024 10:36 [facility] at [address] Clinical History Anemia, hiatal hernia, 38 cm aguayo diverticulosis 03/24/2024 10:36 [facility] Gross Description A. Received [...] Luis Torres 03/22/2024 9:36 03/24/2024 10:36 EDT [facility] Resident/Estuardo w: Luis Felipe Bragg DO 03/24/2024 10:36 T [facility] Performing Lab [facility] 10:36 T [facility] Scanned Images 03/24/2024 10:36 T [facility] Tissue POLYP OF [...] Guerrero DO PATHOLOGY ORDERABLES Final Re sult [facility] [address] [place] [address] from Last 3 Months Insurance MEDICARE [facility] Address: [address] [address] Reporter Relationship Specialty Start Date End Date Ashley Chavez ARNP [address] [place] [address] PCP - General 07/11/10
--- OUTSIDE RECORDS SUMMARY | 2024-06-13 14:09 | XMS_ITS | Encounter Summary ---
Author Organization [facility] [place] [address] Care Team Providers Care Custom Designer Name Role Phone Magdalena Acosta MD Primary Care Provider [phone] Reason for Visit * Reason Comments Follow-up * Consultation (Routine) - Closed Specialty Diagnoses / Procedures Referred By Contac t Referred To Contact Hematology and Oncology Diagnoses Anemia, unspecified type Consuelo Guerrero, DO [address] [place] [address] [place] [address] [facility] Hem Onc [address] [place] [address] Referral ID Status Reason Start Date Expiration Date V isits Requested Visits Authorized [id number] Closed Consult, Test & Treat 04/11/2024 04/11/2025 1 1 Encounter Details Date Type Department Care Team (Late st Contact Info) Description 05/12/2024 10:00 AM EDT Office Visit Hematology [place] [address] Markel Borjas MD [facility] [place] [address] Chronic idiopathic neutropenia Social History Tobacco Use Types Packs/Day Years Used Date Smoking Tobacco: Never Smokeless Tobacco: Never Alcohol Use Standard Drinks/Week Comments No 0 (1 standard drink = 0.6 oz pur e alcohol) none [facility] Inpatient Questions Answer Date Recorded [...] 05/12/2024 10:00 AM EDT Hematology Outpatient [facility] Hematology [...] TOUCH PREP, CLOT SECTION, CORE BIOPSY); [OSR# [id number], COLLECTED 06/23/2016, 19 SLIDES]: 1. 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 pantoprazole EC (Protonix) 40 [...] intact. Extremities: No edema. Labs: Hgb= 11.7 Caie=026 ANC= 2.5 Assessment: 60 year-old woman found [...] EST Office Visit Hematology [place] [address] Markel Borjas MD [facility] [place] [address] 11/02/2024 12:00 PM EDT Appointment [place] [address] 11/02/2024 1:00 PM EDT Office [place] [address] Magdalena Peralta MD [facility] [place] [address] 03/01/2025 4:15 PM EDT Office Visit Dermatology at [place] [address] [place] [id number] Marek Bonilla MD [address], [place] [address] documented as of this encounter Results * Reticulocyte Count (05/12/2024 8:56 AM EDT) [facility] Reticulocyte % 1.20 0.70 - 2.50 % [...] EDT 05/12/2024 8:56 AM EDT Tova Russell REHABILITATION COORDINATOR HEMATOLOGY ORDERABL ES [facility] [place] [address] * (ABNORMAL) Comprehensive metabolic panel Non-fasting (05/12/2024 8:56 AM EDT) [facility] Glucose 86 65 - 199 mg/dL 05/12/2024 11:36 AM EDT [facility] Comment:Glucose Concentratio n >=200 mg/dL plus symptoms is consistent with Diabetes Mellitus. Blood Urea Nitrogen 20(H) 8 - 18 mg/dL 05/12/2024 11:36 AM [facility] Creatinine 0.88 0.70 - 1.20 mg/dL 05/12/2024 11:36 AM [facility] Sodium 145 135 - 145 mMol/L 05/12/2024 11:36 AM [facility] Potassium 4.6 3.5 - 5.0 mMol/L 05/12/2024 11:36 AM [facility] Chloride 109(H) 98 - 107 mMol/L 05/12/2024 11:36 AM [facility] Carbon Dioxide 21(L) 22 - 31 mMol/L 05/12/2024 11:36 AM [facility] Anion Gap 15 5 - 15 mMol/L 05/12/2024 11:36 AM [facility] Comment:Not Calculated. Calcium 9.9 8.5 - 10.5 mg/dL 05/12/2024 11:36 AM [facility] Protein, Total 7.3 6.1 - 8.0 g/dL 05/12/2024 11:36 AM [facility] Albumin 4.5 3.2 - 5.2 g/dL 05/12/2024 11:36 AM [facility] Aspartate Aminotransferase 24 <=30 unit/L 05/12/2024 11:36 AM [facility] Alanine Aminotransferase 14 0 - 30 unit/L 05/12/2024 11:36 AM [facility] Alkaline Phosphatase 98 35 - 105 unit/L 05/12/2024 11:36 AM [facility] Bilirubin, Total 0.2 <=1.3 mg/dL 05/12/2024 11:36 AM [facility] Est Glomerular Filtration Rate [...] EDT 05/12/2024 8:56 AM EDT Tova Russell REHABILITATION COORDINATOR CHEMISTRY ORDERABLE S Performing Organization Address City/State/[facility] Co de Phone Number [facility] [place] [address] * (ABNORMAL) CBC (with Diff) (05/12/2024 8:56 [...] 27.1 - 32.0 pg 05/12/2024 9:32 AM [facility] Mean Cell Hemoglobin Concentration 33.4 31.7 - 35.0 g/dL 05/12/2024 9:32 AM [facility] Platelet 142(L) 145 - 357 x10(3)/mc L 05/12/2024 9:32 AM [facility] Mean Platelet Volume 8.7 7.6 - 12.9 fL 05/12/2024 9:32 AM [facility] RDW Standard Deviation 44.4 37.0 - 46.0 fL 05/12/2024 9:32 AM [facility] RDW coefficient of variation 12.0 11.5 - 14.1 % 05/12/2024 9:32 AM [facility] NRBC% auto 0.0 % 05/12/2024 9:32 AM [facility] NRBC Absolute <0.01 <0.01 x10(3)/mc L 05/12/2024 9:32 AM [facility] Neutrophil % 69.7 % 05/12/2024 9:32 AM [facility] Neutrophil Absolute (ANC) - Automated 2.42 1.70 - 6.10 x10(3)/mc L 05/12/2024 9:32 AM [facility] Lymph % 16.7 % 05/12/2024 9:32 AM [facility] Lymph Absolute 0.58(L) 0.90 - 3.20 x10(3)/mc L 05/12/2024 9:32 AM [facility] Monocyte % 12.1 % 05/12/2024 9:32 AM [facility] Monocyte Absolute 0.42 0.30 - 0.90 x10(3)/mc L 05/12/2024 9:32 AM [facility] Eos % 0.6 % [...] EDT 05/12/2024 8:56 AM EDT Tova Russell REHABILITATION COORDINATOR HEMATOLOGY ORDERABL ES [facility] [place] [address] documented in this encounter Visit Diagnoses Diagnosis Chronic idiopathic neutropenia Other neutropenia documented in this encounter Care Teams Custom Designer Relationship Specialty Start Date End Date Magdalena Acosta MD [address] [place] [address] PCP - General Family Medicine 02/05/23 documented as of this encounter
--- OUTSIDE RECORDS SUMMARY | 2024-06-13 14:09 | XMS_ITS | Encounter Summary ---
Author Organization [facility] Address [address] [place] [address] Care Team Providers Care Manager Truck Name Role Phone Scott, Ashley WILLIAM Primary Care Provider [phone] Encounter Details Date Type Department Care Team (Late st Contact Info) Description 06/23/2016 Results Only [facility] [place] [phone] Matthew Acevedo, DO [address] [address] Social History Tobacco Use Types Packs/Day Years Used Date Smoking Tobacco: Never Assessed Comments Unknown Sex and Gender Information Value [...] ? PURNIMA THACKER ? Accession #: ? [id number] : ? 1955 (Age: 60) ??F ?Collect Date: ? 06/23/2016 Location: ? [facility] ? Receive Date: ? 06/24/2016 Provider: ? MATTHEW ACEVEDO DO Copy to: ?[facility] MARIO ALBERTO GATES MD ? INTERPRETATION: Normal [...] ?? KARYOTYPE: 46,XX[25] End of Report [facility] 06/23/2016 06/24/2016 Matthew Acevedo DO PATHOLOGY ORDERABLES Fi nal Result [facility] [address] [place] [address] * FLOW CYTOMETRY (06/23/2016 0:00 EST) Pathology Report: FLOW CYTOMETRY REPORT Reports generated via electronic interface contain original data; however they are lacking the format of the original report. Caution should be taken when reading/interpreting unformatted reports. Name: ? PURNIMA THACKER ? Accession #: ? [id number] : ? 1955 (Age: 60) ??F ?Collect Date: ? 06/23/2016 00:00 Location: ? [facility] ? Receive Date: ? 06/24/2016 08:00 Provider: ?MATTHEW KRISTINA DO Copy to: ?[facility] ALBERTO RAMOS MD ? FINAL IMMUNOPHENOTYPIC INTERPRETATION: ? Bone marrow, flow cytometric analysis: -No immunophenotypic evidence of a clonal cell population. ??See comment. ? COMMENT: The results of flow cytometry show no immunophenotypic evidence of involvement by a clonal lymphoproliferative or myeloproliferative disorder. ??Correlation of these findings with morphologic and clinical data is essential. ??Please refer to pathology report number [id number] for morphologic details. ? Document reviewed and [...] the Department of Pathology and Laboratory Medicine, [place], [place] ??It has not been cleared or [...] laboratory testing. End of Report ?? [facility] 06/23/2016 06/24/2016 8:0 0 EST Matthew Acevedo DO PATHOLOGY ORDERABLES Fi nal Result Performing Organization Address City/State/[facility] Co de Phone Number [facility] [address] [place] [address] * BONE MARROW/HEMPATH CONSULT (06/23/2016 0:00 EST) Pathology Report: BONE MARROW REPORT Reports generated via electronic interface contain original data; however they are lacking the format of the original report. Caution should be taken when reading/interpreting unformatted reports. Name: ? ANDREW PURNIMA Magalie ? Accession #: ? [id number] : ? 1955 (Age: 60) ??F ?Collect Date: ? 06/23/2016 Location: ? [facility] ? Receive Date: ? 06/24/2016 Provider: ? MATTHEW ACEVEDO DO Copy to: ?[facility] MAR[facility] ALBERTO RAMOS MD ? DIAGNOSIS: Peripheral [...] #1: Aggregate biopsy length: 8 mm with hosiery mater trabeculae of lamellar bone, cellular bone marrow, [...] SEE ABOVE DISCUSSION Lambda (polyclonal, Dako) ??(B1): Peterman (polyclonal, Dako) ??(B1): Biopsy (decalcified) #2: Aggregate biopsy length: 8 mm with hosiery mater trabeculae of lamellar bone, cellular bone marrow, [...] (M115, Leica) ??(B2): Lambda (polyclonal, Dako) ??(B2): Peterman (polyclonal, Dako) ??(B2): NOTE: ??One or more [...] ? 1% Blasts ?1% Special Studies Cytogenetics ([id number]): Pending. Flow Cytometry ([id number]): No immunophenotypic evidence of a clonal cell population. ? End of Report [facility] 06/23/2016 06/24/2016 us Matthew Acevedo DO PATHOLOGY ORDERABLES Fi nal Result [facility] [address] [place] [address] documented in this encounter Visit Diagnoses Not on filedocumented in this encounter Care Teams Manager Truck Relationship Specialty Start Date End Date Ashley Chavez ARNP [address] [place] [address] PCP - General 07/11/10 documented as of this encounter
--- OUTSIDE RECORDS SUMMARY | 2024-06-13 14:09 | XMS_ITS | Encounter Summary ---
Author Organization [facility] [place] [address] Care Team Providers Care Student Success Counselor Name Role Phone Magdalena Acosta MD Primary Care Provider [phone] Encounter Details Date Type Department Care Team (Late st Contact Info) Description 06/01/2024 10:00 AM EDT Office [place] [address] Magdalena Peralta MD [facility] [place] [address] Mixed connective tissue disease Social History Tobacco [...] through Care Everywhere. * Knee Arthritis: Exercises (Bengali) documented in this encounter Progress Notes * [...] 1:5120 speckled; VIC negative; Myositis panel with SR. MANAGER ab 149.1 (positive); Anti U1RNP IgG [...] that osteoporosis is not an indication for emt intermediate systemic steroid therapy as it is not [...] Dr. Roma Peralta MD Rheumatology Fellow Pager: [phone] * Kuldeep Brandon MD - 06/01/2024 10:00 [...] and therapeutic plans. Kuldeep Brandon MD Staff Suspension Cord Tier documented in this encounter Plan of Treatment Upcoming Encounters Date Type Department Care Team (Late st Contact Info) Description 06/23/2024 2:00 PM EST Office Visit Hematology [place] [address] Markel Borjas MD [facility] [address] [place] [address] 11/02/2024 12:00 PM EDT Appointment [place] [address] 11/02/2024 1:00 PM EDT Office [place] [address] Magdalena Peralta MD [facility] [place] [address] 03/01/2025 4:15 PM EDT Office Visit Dermatology at [place] [address] [place] [phone] Marek Bonilla MD [address] [place] [address] Scheduled Orders Name Type Priority Associated Diagnoses Orde r Schedule Common Pulmonary Function Test PFT Routine Mixed connective tissue disease Expected: 10/31/2024, Expires: 06/01/2025 documented as of this encounter Visit Diagnoses Diagnosis Mixed connective tissue disease Other specified diffuse disease of connective tissue documented in this encounter Care Teams Student Success Counselor Relationship Specialty Start Date End Date Magdalena Acosta MD [address] [place] [address] PCP - General Family Medicine 02/05/23 documented as of this encounter
--- OUTSIDE RECORDS SUMMARY | 2024-06-13 14:09 | XMS_ITS | Encounter Summary ---
Author Organization [facility] Address [address] [place] [address] Care Team Providers Care Fourth Officer Name Role Phone Scott, Ashley WILLIAM Primary Care Provider [phone] Encounter Details Date Type Department Care Team (Late st Contact Info) Description 12/23/2016 Results Only [facility] [phone] Deborah Quiroga, LAB AID [address] [place] [address] Social History Tobacco Use Types Packs/Day [...] ? PURNIMA THACKER ? Accession #: ? [id number] ? : ? 1955 (Age: 61) ??F ?Collect Date: ? 12/23/2016 ? Location: ? [facility] ? Receive Date: ? 12/25/2016 ? Provider: DEBORAH QUIROGA BOILERMAKER Copy to: ? Final Report SPECIMEN ADEQUACY ? Satisfactory for Evaluation - transformation zone component present GENERAL CATEGORIZATION ? Negative for Intraepithelial Lesion or Malignancy ?? Last Menstrual Period: years Specimen/Source: ??Pap Test, Cervix, ThinPrep Imaging System with manual evaluation Document reviewed and electronically signed by: ? Monica Cason, [facility](ASCP) ? Report ??Date: 01/06/2017 09:11 HPV with Pap Test ? Date Ordered: ? 01/06/2017 ? Status: ?? Signed Out ?Date Complete: ? 01/07/2017 ? By: ??System Interface ? Date Reported: ? 01/07/2017 ? Interpretation RESULT: Negative for HPV. No E6 or E7 mRNA is detected from HPV types 16,18,31,33,35, 39,45,51,52,56,58, 59,66, and 68 by assistant football coach mediated amplification. Comments Document reviewed and electronically signed by: ? System Interface ? Report date: 01/07/2017 By the signature above, the attending physician certifies that he/she has personally conducted a gross and/or microscopic examination of the described specimens and rendered or confirmed the above diagnosis. End of Report [facility] 12/23/2016 12/25/2016 us Deborah Quiroga LAB AID PATHOLOGY ORDERABLES Final Re sult [facility] [address] [place] [address] documented in this encounter Visit Diagnoses Not on filedocumented in this encounter Care Teams Fourth Officer Relationship Specialty Start Date End Date Ashley Chavez ARNP [address] [place] [address] PCP - General 07/11/10 documented as of this encounter
--- OUTSIDE RECORDS SUMMARY | 2024-06-13 14:09 | XMS_ITS | Encounter Summary ---
Author Organization [facility] Address [address] [place] [address] Care Team Providers Care Cooker Syrup Name Role Phone Ashley Chavez Primary Care Provider [phone] Encounter Details Date Type Department Care Team (Latest Contact Info) Description 05/12/2019 13:18 EDT - 05/12/2019 23:59 EDT Hospital Encounter [address] [address] Unknown, Provider, MD Discharge Disposition: Home or [...] filedocumented in this encounter Care Teams Cooker Syrup Relationship Specialty Start Date End Date Ashley Chavez ARNP [address] [place] [address] PCP - General 07/11/10 documented as of this encounter
--- OUTSIDE RECORDS SUMMARY | 2024-06-13 14:09 | XMS_ITS | Encounter Summary ---
Author Organization [facility] Address [address] [place] [address] Care Team Providers Care Flag Car Driver Name Role Phone Ashley Chavez Primary Care Provider [phone] Encounter Details Date Type Department Care Team (Late st Contact Info) Description 10/30/2022 Lab Requisition [facility] Pathology & Laboratory Medicine - [address] [address] Outr Resulting Lab, Provider Social History Tobacco [...] Stranded) <12.3 <30.0 IU/mL 11/03/2022 13:08 EDT [facility] Comment: ? Negative: ??<30.0 IU/mL ? Borderline Positive: ??30.0 - 75.0 IU/mL ? Positive: ??>75.0 IU/mL Results were obtained with the ClipVA QUANTA Lite dsDNA SC DOMO assay on the [place] DSX. Blood VENOUS BLOOD / Unknown 10/29/2022 14:00 EDT 10/30/2022 19:27 EDT Provider Outr Resulting Lab IMMUNOLOGY AND SEROL OGY ORDERABLES Final Result Performing Organization Address [facility] de Phone Number [facility] [address] [place] [address] * SM (MORENO) ANTIBODY (10/29/2022 14:00 EDT) SM (Moreno) Antibody 18.5 <20.0 Units 11/03/2022 14:26 EDT [facility] [...] 19:27 EDT Provider Outr Resulting Lab IMMUNOLOGY AND SEROL OGY ORDERABLES Final Result Performing Organization Address [facility] de Phone Number [facility] [address] [place] [address] documented in this encounter Visit Diagnoses Not on filedocumented in this encounter Care Teams Flag Car Driver Relationship Specialty Start Date End Date Ashley Chavez ARNP [address] [place] [address] PCP - General 07/11/10 documented as of this encounter
--- OUTSIDE RECORDS SUMMARY | 2024-06-13 14:09 | XMS_ITS | Encounter Summary ---
Author Organization [facility] Address [address] [place] [address] Care Team Providers Care Finisher Card Tender Name Role Phone Unavailable Primary Care Provider Unavailabl e Encounter Details Date Type Department Care Team (Late st Contact Info) Description 06/29/2007 Results Only [facility] - Maple conversion [address] [place] [address] Sánchez Acevedo MD [address] [place] [address] Social History Tobacco Use Types Packs/Day Years [...] ? PURNIMA THACKER ? Accession #: ? [id number] ? : ? 1955 (Age: 51) ??F ? Collect Date: ? 06/29/2007 ? Location: ? [facility] ? Receive Date: ? 06/29/2007 ? Provider: SÁNCHEZ ACEVEDO MD Copy to: JEMMA ELENA THOMAS ? Final Pathologic Diagnosis: ? Gallbladder, [...] covered by a smooth white serosa. ??Three assisted sales representative sections of the gallbladder are submitted in one cassette. ??(Sriram Scott)/[facility] End of Report PAUL [facility] 06/29/2007 06/29/2007 21: 23 EST us Sánchez Acevedo MD PATHOLOGY ORDERABLES Final Result Performing Organization Address City/State/[facility] Co de Phone Number PAUL [address] [address] documented in this encounter Visit Diagnoses Not on filedocumented in this encounter
--- OUTSIDE RECORDS SUMMARY | 2024-06-13 14:09 | XMS_ITS | Encounter Summary ---
Author Organization [facility] [place] [address] Care Team Providers Care Matrix Bath Operator Name Role Phone Magdalena Acosta MD Primary Care Provider [phone] Encounter Details Date Type Department Care Team (Late st Contact Info) Description 06/05/2024 2:00 PM EST - 06/05/2024 3:00 PM EST Surgery [facility] [place] [address] Markel Borjas MD [facility] [address] HEMATOLOGY [place] [address] (OSC MSURG) BONE MARROW BIOPSY AND ASPIRATION; [...] 5pm or on a weekend: Call the [facility] hair rooting machine operator at and ask for the physician screen and cyclone repairer covering for your doctor. Instructions following sedation [...] drainage occurs, please [place] [address] [email or web address] documented in this encounter Medications at Time of Discharge Medication Sig Dispensed Refills Start Date End Date pantoprazole EC (Protonix) [address] tablet Take 40 mg by mouth daily. losartan (Cozaar) 25 mg tablet Take 25 mg by mouth daily. 09/07/2023 metoprolol succinate XL (Toprol-XL) 50 mg ER 24 hr tablet Take 50 mg by mouth daily. 09/07/2023 spironolactone (Aldactone) 25 mg tabletIndications:HFrE F (heart [...] 75mg once daily. 90 tablet 3 07/20/2023 atorvastatin (LIPITOR) 10 mg Tablet Take 10 mg by mouth daily. aspirin 81 mg EC tablet Take 81 mg by mouth daily. hydrOXYchloroQUINE (Plaquenil) 200 mg tablet Take 1 tablet by mouth daily. 90 tablet 1 05/24/2024 cyanocobalamin, vitamin B-12, (Vitamin B-12) 500 mcg tablet Take 500 mcg by mouth daily. nystatin (MYCOSTATIN) 100,000 unit/gram [...] Tablet Take 1 tablet by mouth daily. documented as of this [...] EST Office Visit [place] [address] Markel Borjas MD [facility] HEMATOLOGY [place] [address] 11/02/2024 12:00 PM EDT [place]oint[place] [phone] 11/02/2024 1:00 PM EDT Office [place] [phone] Magdalena Peralta MD [facility] [place] [address] 03/01/2025 4:15 PM EDT Office Visit Dermatology at [address] [phone] Marek Bonilla MD [address] [facility] [place] [address] Pending Results Name Type Priority Associated Diagnoses Date /Time Chromosome Analysis, Acquired ([facility]) Lab Routine 06/05/2024 2: 22 PM EST Scheduled Orders Name Type Priority Associated Diagnoses Orde r Schedule Chromosome Analysis, Acquired ([facility]) Lab Routine One Time for 1 Occurrences starting 06/05/2024 until 06/05/2024 documented as of this encounter Procedures Procedure Name Priority Date/Time Associated Diagnosis Comments BM HOLD CG/FISH Routine 06/05/2024 2:22 PM EST BM HOLD FLOW/MOLECULAR Routine 2:22 PM EST BONE MARROW ANALYSIS Routine 06/05/2024 2:22 PM EST DH HEMESEQ (BONE MARROW) Routine 024 2:22 PM EST IMMUNOPHENOTYPING FLOW CYTOMETRY Routine 06/05/2024 2:22 PM EST MYELODYSPLASTIC SYNDROME (MDS) FISH PANEL Routine 06/05/2024 2:22 PM EST BONE MARROW Routine 06/05/2024 2:22 PM EST Diagnostic Bone Marrow Biopsies & Aspirations ([address]) 06/05/2024 2:03 PM EST Anemia, in pt with longstanding neutropenia CBC (WITH DIFF) Routine 06/05/2024 1:45 PM EST (OSC MSURG) BONE MARROW BIOPSY AND ASPIRATION; DIAGNOSTIC Routine 06/05/2024 1:07 PM EST documented in this encounter Results * Myelodysplastic Syndrome (MDS) FISH Panel (06/05/2024 2:22 PM EST) Specimen Condition adequate 06/08/2024 11:23 PM [facility] Indication for Study Anemia, in patient with presumed hx of benign neutropenia 06/08/2024 11:23 PM [facility] FISH Panel Summary NEGATIVE for all FISH Panel markers 06/08/2024 11:23 PM [facility] FISH Results 5q deletion, monosomy 5, 7q deletion, monosomy 7, trisomy 8, and 20q deletion NOT DETECTED. 06/08/2024 11:23 PM [facility] ISCN Nomenclature nuc josselin(D5S23,EGR1)x2[ 200],(D7Z1,T1L290) x2[200],(D8Z2,D20S 108)x2[200] 06/08/2024 11:23 PM [facility] Culture Type Direct [place] 06/08/20 11:23 PM [facility] FISH Method Interphase 06/08/2024 11:23 PM [facility] Interpretation Interphase FISH analysis using probes for the EGR1/5q31 and D5S23/5p15.2 loci ([employer] shows 2.0% and 0% of 200 cells with 5q signal deletion (5q-) and chromosome 5 signal loss (monosomy 5) patterns, respectively. These are within acceptable reference limits (5q deletion: 0-6.3%; monosomy 5: 0-3.8%). Thus, there is no evidence for 5q deletion and monosomy 5. Interphase FISH analysis using probes for CEP7/D7Z1/7p11.1q1 1.1 and N6K642/7q31 loci ([employer] shows 1.5% and 0% of 200 cells with 7q signal deletion (7q-) and chromosome 7 signal loss (monosomy 7) patterns, respectively. These are within acceptable reference limits (7q deletion: 0-6.3%; monosomy 7: 0-4.4%). Thus, there is no evidence for 7q deletion and monosomy 7. Interphase FISH analysis using probes for CEP8/D8Z2/8p11.1q1 1.1 and F35N756/20q12 loci ([employer] shows 0% and 2.5% of 200 cells with a chromosome 8 signal gain and 20q signal deletion patterns, respectively. These are within acceptable reference limits (trisomy 8: 0-5.1%; 20q deletion: 0-6.3%). Thus, there is no evidence for trisomy 8 and 20q deletion. Correlation with clinical and pathological studies is suggested. 06/08/2024 11:23 PM [facility] Technical Methods FISH is performed on liquid (blood, bone marrow) and paraffin embedded tissues sample types. The FISH probes are mixed in hybridization buffer and purified water prior to them being applied to the cells fixed on the microscope slide. The main steps include co-denaturation of FISH probe and nuclei, hybridization of complementary basepair sequences (ThermoBrite; Leica), followed by wash steps to remove unbound probe. The FISH probes are directly-labeled by the bulldozer operator (Octopusapp or White Ops) with either a spectrum orange, green, or aqua fluorochrome. Cells are stained with DAPI (Octopusapp), visualized through fluorescence microscopy, and images captured on the CytoVision software ([employer]). Results are reported based on an International System for Human Cytogenomic Nomenclature. 06/08/2024 11:23 PM EST [facility] Limitations & Disclaimers The FISH test was developed and its performance characteristics were determined by the [facility] ([facility]ogen[facility] as required by The Clinical Laboratory Improvement Amendments (CLIA'88) regulations. It has not been cleared or approved for specific uses by the U.S. Food and Drug Administration (FDA). The FDA has determined that such clearance or approval is not necessary. This test is used for clinical purposes. It should not be regarded as investigational or for research. Pursuant to the requirements of CLIA'88, this laboratory has established and verified the test's accuracy and precision. The [facility] is certified under the CLIA'88 as qualified to perform high complexity clinical laboratory testing. Chromosome alterations outside the regions complementary to these DNA FISH probes will not be detected. 06/08/2024 11:23 PM EST [facility] Sign-out by Professional component performed by Lizette Bullock, Ph.D., [facility], [facility] [address], [place], [place] (CLIA #: [id number]). 06/08/2024 11:23 PM EST [facility] Bone Marrow Non Blood Collection / Unknown 06/05/2024 2:22 PM EST 06/05/2024 3:07 PM EST Georges Boucher MD MOLECULAR ORDERABLES Performing Organization Address City/State/[facility] Co de Phone Number [facility] [place] [address] * HemeSeq (Bone Marrow) (06/05/2024 2:22 PM EST) NGS Report Status Normal 06/13/2024 10:21 AM EST [facility] Bone Marrow Non Blood Collection / Unknown 06/05/2024 2:22 PM EST 06/05/2024 3:07 PM EST Georges Boucher MD MOLECULAR ORDERABLES [facility] [place] [address] * Immunophenotyping Flow Cytometry (06/05/2024 2:22 PM EST) Final Diagnosis - No monotypic B-cell population, no monotypic plasma cell population, no phenotypically abnormal T-cell population or increase in blasts is detected. 06/06/2024 2:08 PM EST [facility] Signing Pathologist This result has been reviewed by Georges Boucher MD on 06/06/24 at 2:08 PM. 06/06/2024 2:08 PM [facility] Interpretation CD19+ B-cells show a [...] significant blast populations identified. 06/06/2024 2:08 PM EST [facility] Lymphocyte % 4.7 % 06/06/2024 2:08 PM [facility] Monocyte % 3.0 % 06/06/2024 2:08 PM [facility] Granulocyte % 76.0 % 06/06/2024 2:08 PM [facility] CD45 DIM % 0.9 % 06/06/2024 2:08 PM [facility] CD38 Bright/CD138+ 0.2 % 06/06/2024 2:08 PM [facility] CD3+ % 70.0 % 06/06/2024 2:08 PM [facility] CD19+ % 17.0 % 06/06/2024 2:08 PM [facility] CD56+ % 12.0 % 06/06/2024 2:08 PM [facility] B-Cell:T-Cell Ratio 0.2 06/06/2024 2:08 PM [facility] Weiser:Lambda Ratio 1.8 06/06/2024 2:08 PM [facility] CD4:CD8 Ratio 1.6 06/06/2024 2:08 PM [facility] Specimen Processing Cells for immunophenotypic analysis were derived from bone marrow. The following markers were assessed: CD2, CD3, CD4, CD5, CD7, CD8, CD10, CD19, CD20, CD38, CD45, CD56, CD138, kappa light chain, (c)kappa light chain, lambda light chain, (c)lambda light chain,CD13, CD14, CD34, CD45, CD117, and HLA-DR. 06/06/2024 2:08 PM [facility] Disclaimer Flow analysis is an ancillary study. A definite diagnosis requires correlation with the morphologic features of this process and if necessary, correlation with other ancillary studies like immunohistochemist ry, enzyme cytochemistry and/or cyto/molecular genetics. This test was developed and its performance characteristics determined by the Clinical Flow Cytometry Laboratory at [facility]. It has not been [...] complexity clinical laboratory testing. 06/06/2024 2:08 PM [facility] Bone Marrow Non Blood Collection / Unknown 06/05/2024 2:22 PM EST 06/05/2024 3:07 PM EST Georges Boucher MD HEMATOLOGY ORDERABLE S [facility] [place] [address] * BM HOLD CYTOGENETICS/FISH (06/05/2024 2:22 PM EST) Bone Marrow Non Blood Collection / Unknown 06/05/2024 2:22 PM EST 06/05/2024 3:07 PM EST Narrative [facility] - 06/06/2024 10:47 AM EST ~3ml Markel Borjas MD PATHOLOGY/CYTOLOGY ORDERABLES Performing Organization Address [facility] de Phone Number [facility] [place] [address] * BM HOLD FLOW/MOLECULAR (06/05/2024 2:22 PM EST) Bone Marrow Non Blood Collection / Unknown 06/05/2024 2:22 PM EST 06/05/2024 3:07 PM EST Markel Borjas MD PATHOLOGY/CYTOLOGY ORDERABLES Performing Organization Address [facility] de Phone Number [facility] [place] [address] * Bone Marrow (06/05/2024 2:22 PM EST) Case Report Bone Marrow Patholog y Report ?Case: [id number] ? Authorizing Provider: ??Markel Borjas MD ?Collected: ? 06/05/2024 1422 ? Ordering Location: ? [facility] ??Received: ?06/05/2024 1508 ? [facility] ? Hospital ? Pathologist: ? Georges Boucher, MD ? Specimens: ?? A) - Iliac Crest, Left ? B) - Iliac Crest, Left ? C) - Iliac Crest, Left ? 4 1:36 PM [facility] Final Diagnosis BONE MARROW (BLOOD FILM, ASPIRATE, TOUCH PREP, CORE & CLOT SECTIONS): 1. Normocellular bone marrow with maturing trilineage hematopoiesis. No overt dysplasia or increased blasts. 2. Ancillary studies pending. 4 1:36 PM [facility] Discussion The patient's histor y of [...] myeloid neoplasm. Final integrated report to follow. 1:36 PM [facility] Additional Studies Task ID IHC/Special Stains Result B1-3 Myeloperoxidase Highlights granulocytic precursors. B1-4 CD34 Highlights rare blasts (<5% of cells) B1-5 CD117 Highlights rare mast cells. B1-6 E-Cadherin Highlights normal erythroid precursors. B1-7 CD61 Highlights normal megakaryocytes. 4 1:36 PM [facility] Clinical Information Anemia, in patient with presumed hx of benign neutropenia 4 1:36 PM [facility] Gross Description A. Iliac Crest, Left. Number of Lavender (EDTA) tubes: 3 Total Volume of Lavender (EDTA) tubes: 8 ml Number of Green (NaHep) tubes: 1 Total Volume of Green (NaHep) tubes: 3 ml Spicule/Clot Section submitted? Present Tube to Biorepository? Present Processed by: Abbie Barrow Collected off the [facility] by: N/A B. Iliac Crest, Left. B [...] 1 cassette labeled C1. CCP 1:36 PM [facility] Disclaimer(s) Formalin-fixed, paraffin-embedded tissue sections are [...] criteria and other diagnostic tests. 1:36 PM [facility] Bone Marrow Aspirate Adequacy: Smear/touch preparations [...] stores present, no ring sideroblasts. 1:36 PM [facility] Bone Marrow Biopsy and/or Clot Core [...] Trabecular bone normal for age. 1:36 PM [facility] Bone Marrow Differential Band/Seg 34%; Lymph 8%; [place] 0%; Eos 2%; Baso 1%; Metamyelocyte 13%; Myelocyte 9%; Promyelocyte 2%; Blast 1%; nRBC's 27%; Plasma cell 3% 4 1:36 PM [facility] Result Note Routine 1:36 PM [facility] Peripheral Blood Morphology RBCs: Mildly macrocytic anemia with rare target cells, ovalocytes. WBCs: Unremarkable. Platelets: Rare large platelet form present. 1:36 PM [facility] STRUCTURE OF LEFT ILIAC CREST / Unknown 06/05/2024 2:22 PM EST 06/05/2024 3:08 PM EST STRUCTURE OF LEFT ILIAC CREST / Unknown 06/05/2024 2:22 PM EST 06/05/2024 3:08 PM EST STRUCTURE OF LEFT ILIAC CREST / Unknown 06/05/2024 2:22 PM EST 06/05/2024 3:08 PM EST Markel Borjas MD PATHOLOGY/CYTOLOGY ORDERABLES [facility] [place] [address] * (ABNORMAL) CBC (with Diff) (06/05/2024 1:45 PM EST) White Blood Cell 3.06(L) 4.00 - 9.50 x10(3)/mc L 06/05/2024 2:38 PM [facility] Red Blood Cell 3.35(L) 4.00 - 5.21 x10(6)/mc L 06/05/2024 2:38 PM [facility] Hemoglobin 11.0(L) 11.7 - 15.5 g/dL 06/05/2024 2:38 PM [facility] Hematocrit 33.4(L) 35.7 - 45.8 % 06/05/2024 2:38 PM [facility] Mean Cell Volume 99.7(H) 82.6 - 94.4 fL 06/05/2024 2:38 PM [facility] Mean Cell Hemoglobin 32.8(H) 27.1 - 32.0 pg 06/05/2024 2:38 PM [facility] Mean Cell Hemoglobin Concentration 32.9 31.7 - 35.0 g/dL 06/05/2024 2:38 PM [facility] Platelet 151 145 - 357 x10(3)/mc L 06/05/2024 2:38 PM [facility] Mean Platelet Volume 8.9 7.6 - 12.9 fL 06/05/2024 2:38 PM [facility] RDW Standard Deviation 44.3 37.0 - 46.0 fL 06/05/2024 2:38 PM [facility] RDW coefficient of variation 12.0 11.5 - 14.1 % 06/05/2024 2:38 PM [facility] NRBC% auto 0.0 % 06/05/2024 2:38 PM [facility] NRBC Absolute <0.01 <0.01 x10(3)/mc L 06/05/2024 2:38 PM [facility] Neutrophil % 62.8 % 06/05/2024 2:38 PM [facility] Neutrophil Absolute (ANC) - Automated 1.92 1.70 - 6.10 x10(3)/mc L 06/05/2024 2:38 PM [facility] Lymph % 20.9 % 06/05/2024 2:38 PM [facility] Lymph Absolute 0.64(L) 0.90 - 3.20 x10(3)/mc L 06/05/2024 2:38 PM [facility] Monocyte % 15.0 % 06/05/2024 2:38 PM [facility] Monocyte Absolute 0.46 0.30 - 0.90 x10(3)/mc L 06/05/2024 2:38 PM [facility] Eos % 0.3 % 06/05/2024 2:38 PM [facility] Eos Absolute <0.04 0.00 - 0.40 x10(3)/mc L 06/05/2024 2:38 PM [facility] Basophil % 0.7 % 06/05/2024 2:38 PM [facility] Baso Absolute <0.04 0.00 - 0.10 x10(3)/mc L 06/05/2024 2:38 PM EST [facility] Immature Gran % 0.3 % 2:38 PM EST [facility] Immature Gran Absolute <0.04 0.00 - 0.04 x10(3)/mc L 06/05/2024 2:38 PM EST [facility] Blood VENOUS BLOOD SPECIMEN / Unknown Venipuncture / Unknown 06/05/2024 1:45 PM EST 06/05/2024 1:59 PM EST Markel Borjas MD HEMATOLOGY ORDERAB LES [facility] [place] [address] documented in this encounter Visit Diagnoses Not [...] RN) documented in this encounter Care Teams Matrix Bath Operator Relationship Specialty Start Date End Date Magdalena Acosta MD [address] [place] [address] PCP - General Family Medicine 02/05/23 documented as of this encounter
--- OUTSIDE RECORDS SUMMARY | 2024-06-13 14:09 | XMS_ITS | Encounter Summary ---
Author Organization [facility] Address [address] [place] [address] Care Team Providers Care Handle And Vent Machine Operator Name Role Phone Scott Ashley WILLIAM Primary Care Provider [phone] Encounter Details Date Type Department Care Team (Late st Contact Info) Description 03/22/2024 Lab Requisition [facility] Pathology & Laboratory Medicine - [address] [address] Consuelo Guerrero, DO [address] [place], [place] [address] Diaphragmatic hernia without obstruction or gangrene; Anemia, [...] Luis Torres 03/22/2024 9:36 03/24/2024 10:36 EDT [facility] Resident/Estuardo w: Luis Felipe Bragg DO 03/24/2024 10:36 T [facility] Performing Lab [facility] 10:36 T [facility] Scanned Images 03/24/2024 10:36 T [facility] Tissue POLYP OF COLON [...] Guerrero DO PATHOLOGY ORDERABLES Final Re sult [facility] [address] [place] [address] documented in this encounter Visit Diagnoses Diagnosis Diaphragmatic hernia without obstruction or gangrene Diaphragmatic hernia without mention of obstruction or gangrene Anemia, unspecified documented in this encounter Care Teams Handle And Vent Machine Operator Relationship Specialty Start Date End Date Ashley Chavez ARNP [address] [place] [address] PCP - General 07/11/10 documented as of this encounter
--- OUTSIDE RECORDS SUMMARY | 2024-06-13 14:09 | XMS_ITS | Encounter Summary ---
Author Organization [facility] Address [address] [place] [address] Care Team Providers Care Associate Relations Specialist Name Role Phone Unavailable Primary Care Provider Unavailabl e Encounter Details Date Type Department Care Team (Late st Contact Info) Description 07/08/2010 10:55 EST - 07/08/2010 10:56 EST Hospital Encounter [facility] - Other [address] [place] [address] Ashley Chavez, WILLIAM [address] [place] [address] Discharge Disposition: Home or Self Care Social [...]
--- OUTSIDE RECORDS SUMMARY | 2024-06-13 14:09 | XMS_ITS | Encounter Summary ---
Author Organization [facility] Address [address] [place] [address] Care Team Providers Care Pool Table Operator Name Role Phone Unavailable Primary Care Provider Unavailabl e Encounter Details Date Type Department Care Team (Late st Contact Info) Description 04/20/2005 Results Only [facility] conversion [address] [place] [address] Ziggy Valiente MD [address] [place] [address] Social History Tobacco Use Types Packs/Day [...] ? 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 Accession #: ? [id number] ? : ? 1955 (Age: 49) ??F [...] endoscopic appearance is recommended. (Dr. Chino)/[facility] Document reviewed and electronically signed [...] PAUL ARELLANO 04/20/2005 04/21/2005 15: 04 EDT us Ziggy Valiente MD PATHOLOGY ORDERABLES Final Resul t [facility] [address] [place] [address] documented in this encounter Visit Diagnoses Not on filedocumented in this encounter
--- OUTSIDE RECORDS SUMMARY | 2024-06-13 14:09 | XMS_ITS | Encounter Summary ---
[place] [address] Care Team Providers Care Slitter And Rewinder Machine Operator Name Role Phone Magdalena Acosta MD Primary Care Provider [phone] Encounter Details Date Type Department Care Team (Late st Contact Info) Description 05/18/2024 Interpretation Only [address] [address] Magdalena Acosta MD [address] [place], [place] [id number] Social History Tobacco Use Types Packs/Day Years [...] EST Office Visit Hematology [place] [address] Markel Borjas MD [facility] [address] HEMATOLOGY [place] [address] 11/02/2024 12:00 PM EDT App[place] [phone] 11/02/2024 1:00 PM EDT Office [place] [address] Magdalena Peralta MD [facility] [place] [address] 03/01/2025 4:15 PM EDT Office Visit Dermatology at [place] [address] [place] [phone] Marek Bonilla MD [address], [place] [address] documented as of this encounter Procedures Procedure Name Priority Date/Time Associated Diagnosis Comments DXA CENTRAL SPINE, HIP, AND/OR WHOLE BODY (GENERIC) Routine 05/18/2024 11:21 AM EDT documented in this encounter Results * DXA Central Spine, Hip, and/or Whole Body (Generic) (05/18/2024 11:21 AM EDT) PT CLASS O RAD ADMITDTTM [id number] FORMERLY NAMED [facility] PT FORMERLY NAMED [facility] INFO [id number]^Dave ^Magdalena RAD EXAM DESC XDXAC^BD Bone Density DEXA Axial Skeleton^RIS FORMERLY NAMED [facility] WORKSTATION ID RADDRIMAGE FORMERLY NAMED [facility] Anatomical Region Laterality Modality C-spine, Hip [...] have questions please contact the health care technician that requested your imaging first. ? Electronically signed by: Rocael Villatoro MD, [facility] ([phone]), at 05/18/2024 11:25 AM Narrative 05/18/2024 11:25 [...] who have questions please contactthe health care technician that requested your imaging first. Electronically signed by: Rocael Villatoro MD, [facility]([phone]), at 05/18/2024 11:25 AM Magdalena Acosta MD IMG DEXA ORDERABLES documented in this encounter Visit Diagnoses Not on filedocumented in this encounter Care Teams Slitter And Rewinder Machine Operator Relationship Specialty Start Date End Date Magdalena Acosta MD [address] [place] [address] PCP - General Family Medicine 02/05/23 documented as of this encounter
--- OUTSIDE RECORDS SUMMARY | 2024-06-13 14:09 | XMS_ITS | Encounter Summary ---
Author Organization [facility] Address [address] [place] [address] Care Team Providers Care Primer Inserting Machine Adjuster Name Role Phone Ashley Chavez Primary Care Provider [phone] Encounter Details Date Type Department Care Team (Late st Contact Info) Description 03/21/2024 Lab Requisition [facility] Pathology & Laboratory Medicine - [address] [address] Outr Resulting Lab, Provider Social History Tobacco [...] 32 - 197 mg/dL 03/22/2024 10:25 EDT [facility] Blood VENOUS BLOOD / Unknown 03/21/2024 13:00 EDT 03/21/2024 21:50 EDT us Provider Outr Resulting Lab CHEMISTRY & BLOOD GA S ORDERABLES Final Result Performing Organization Address [facility]/State/ZIP Co de Phone Number [facility] [address] [place] [address] documented in this encounter Visit Diagnoses Not on filedocumented in this encounter Care Teams Primer Inserting Machine Adjuster Relationship Specialty Start Date End Date Ashley Chavez ARNP [address] [place] [address] PCP - General 07/11/10 documented as of this encounter
--- OUTSIDE RECORDS SUMMARY | 2024-06-13 14:09 | XMS_ITS | Encounter Summary ---
Author Organization [facility] Address [address] [place] [address] Care Team Providers Care Sand Caster Apprentice Name Role Phone Ashley Chavez Primary Care Provider [phone] Encounter Details Date Type Department Care Team (Late st Contact Info) Description 12/17/2021 Lab Requisition [facility] Pathology & Laboratory Medicine - [address] [address] Outr Resulting Lab, Provider Social History Tobacco [...] Negative Negative 12/18/2021 10:37 EDT [facility] Blood VENOUS BLOOD / Unknown 12/17/2021 13:30 EDT 12/17/2021 21:32 EDT us Provider Outr Resulting Lab IMMUNOLOGY AND SEROL OGY ORDERABLES Final Result Performing Organization Address [facility] Co de Phone Number [facility] [address] [place] [address] * (ABNORMAL) ANTI NUCLEAR AB ([place]), IFA (12/17/2021 13:30 EDT) [place] Interpretation Positive(A) Negative 12/18/2021 16:06 EDT [facility] Comment: For titers greater [...] 1:1280 Speckled 12/18/2021 16:06 EDT [facility] Blood VENOUS BLOOD / Unknown 12/17/2021 13:30 EDT 12/17/2021 21:32 EDT Narrative [facility] - 12/18/2021 16:06 EDT Results were obtained with the INOVA NOVA Lite HEp-2 [place] Kit by indirect immunofluorescence. us Provider Outr Resulting Lab IMMUNOLOGY AND SEROL OGY ORDERABLES Final Result Performing Organization Address [facility] Co de Phone Number [facility] [address] [place] [address] documented in this encounter Visit Diagnoses Not on filedocumented in this encounter Care Teams Sand Caster Apprentice Relationship Specialty Start Date End Date Ashley Chavez ARNP [address] [place], [place] [id number] PCP - General 07/11/10 documented as of this encounter
--- OUTSIDE RECORDS SUMMARY | 2024-06-13 14:09 | XMS_ITS | Encounter Summary ---
Author Organization [facility] [place] [address] Care Team Providers Care Automated Access Systems Technician Name Role Phone Magdalena Acosta MD Primary Care Provider [phone] Encounter Details Date Type Department Care Team (Latest Contact Info) Description 06/05/2024 1:04 PM EST - 06/05/2024 3:08 PM EST Hospital Encounter [facility] [place] [address] Markel Borjas MD [facility] [address] HEMATOLOGY [place] [address] Discharge Disposition: Home Social History Tobacco Use [...] 5pm or on a weekend: Call the [facility] dye automation operator at and ask for the physician detention attendant covering for your doctor. Instructions following sedation [...] drainage occurs, please contact [place] [address] [email or web address] documented in this encounter Medications at Time [...] EST Office Visit Hematology [place] [address] Markel Borjas MD [facility] [address] HEMATOLOGY [place] [address] 11/02/2024 12:00 PM EDT Appointment [place] [address] 11/02/2024 1:00 PM EDT Office [place] [address] Magdalena Peralta MD [facility] [address] RHEUMATOLOGY DEPT [place], [place] [phone] 03/01/2025 4:15 PM EDT Office Visit Dermatology at [place] [address] [place] [address] Marek Bonilla MD [address] [place] [address] Pending Results Name Type Priority Associated Diagnoses [...] PM EST DH HEMESEQ (BONE MARROW) Routine 2:22 PM EST IMMUNOPHENOTYPING FLOW CYTOMETRY Routine 06/05/2024 2:22 PM EST MYELODYSPLASTIC SYNDROME (MDS) FISH PANEL Routine 06/05/2024 2:22 PM EST BONE MARROW Routine 06/05/2024 2:22 PM EST Diagnostic Bone Marrow Biopsies & Aspirations ([address]) 06/05/2024 2:03 PM EST Anemia, in pt with longstanding neutropenia CBC (WITH DIFF) Routine 06/05/2024 1:45 PM EST (OSC MSURG) BONE MARROW BIOPSY AND ASPIRATION; DIAGNOSTIC Routine 06/05/2024 1:07 PM EST documented in this encounter Results * Myelodysplastic Syndrome (MDS) FISH Panel (06/05/2024 2:22 PM EST) Specimen Condition adequate 06/08/2024 11:23 PM [facility] Indication for Study Anemia, in patient with presumed hx of benign neutropenia 06/08/2024 11:23 PM [facility] FISH Panel Summary NEGATIVE for all FISH Panel markers 06/08/2024 11:23 PM [facility] FISH Results 5q deletion, monosomy 5, 7q deletion, monosomy 7, trisomy 8, and 20q deletion NOT DETECTED. 06/08/2024 11:23 PM [facility] ISCN Nomenclature nuc josselin(D5S23,EGR1)x2[ 200],(D7Z1,T2Z421) x2[200],(D8Z2,D20S 108)x2[200] 06/08/2024 11:23 PM [facility] Culture Type Direct [place] 06/08/20 11:23 PM [facility] FISH Method Interphase 06/08/2024 11:23 PM [facility] Interpretation Interphase FISH analysis using probes [...] analysis using probes for CEP7/D7Z1/7p11.1q1 1.1 and Z0A360/7q31 loci ([employer] shows 1.5% and 0% of 200 cells with 7q signal deletion (7q-) and chromosome 7 signal loss (monosomy 7) patterns, respectively. These are within acceptable reference limits (7q deletion: 0-6.3%; monosomy 7: 0-4.4%). Thus, there is no evidence for 7q deletion and monosomy 7. Interphase FISH analysis using probes for CEP8/D8Z2/8p11.1q1 1.1 and N00Q580/20q12 loci ([employer] shows 0% and 2.5% of 200 cells with a chromosome 8 signal gain and 20q signal deletion patterns, respectively. These are within acceptable reference limits (trisomy 8: 0-5.1%; 20q deletion: 0-6.3%). Thus, there is no evidence for trisomy 8 and 20q deletion. Correlation with clinical and pathological studies is suggested. 06/08/2024 11:23 PM [facility] Technical Methods FISH is performed on [...] The FISH probes are directly-labeled by the parts representative (Wistia or [employer]ana) with either a spectrum orange, green, or aqua fluorochrome. Cells are stained with DAPI (Wistia), visualized through fluorescence microscopy, and images captured on the CytoVision software ([employer]). Results are reported based on an International System for Human Cytogenomic Nomenclature. 06/08/2024 11:23 PM EST [facility] Limitations & Disclaimers The FISH test was developed and its performance characteristics were determined by the [facility] ([facility] as required by The Clinical [...] verified the test's accuracy and precision. The [facility] Cytogenetics [facility] is certified under the CLIA'88 as qualified to perform high complexity clinical laboratory testing. Chromosome alterations outside the regions complementary to these DNA FISH probes will not be detected. 06/08/2024 11:23 PM EST [facility] Sign-out by Professional component performed by Lizette Bullock, Ph.D., [facility], [facility] [address] [place], [place] (CLIA #: [id number]). 06/08/2024 11:23 PM EST [facility] Bone Marrow Non Blood Collection / Unknown 06/05/2024 2:22 PM EST 06/05/2024 3:07 PM EST Georges Boucher MD MOLECULAR ORDERABLES Performing Organization Address City/[facility]/ZIP Co de Phone Number [facility] [place] [address] * HemeSeq (Bone Marrow) (06/05/2024 2:22 PM EST) NGS Report Status Normal 06/13/2024 10:21 AM EST [facility] Bone Marrow Non Blood Collection / Unknown 06/05/2024 2:22 PM EST 06/05/2024 3:07 PM EST Georges Boucher MD MOLECULAR ORDERABLES [facility] [place] [address] * Immunophenotyping Flow Cytometry (06/05/2024 2:22 PM EST) Final Diagnosis - No monotypic B-cell population, no monotypic plasma cell population, no phenotypically abnormal T-cell population or increase in blasts is detected. 06/06/2024 2:08 PM [facility] Signing Pathologist This result has been reviewed by Georges Boucher MD on 06/06/24 at 2:08 PM. 06/06/2024 2:08 PM [facility] Interpretation CD19+ B-cells show a polytypic [...] blast populations identified. 06/06/2024 2:08 PM EST [facility] Lymphocyte % 4.7 % 06/06/2024 2:08 PM [facility] Monocyte % 3.0 % 06/06/2024 2:08 PM [facility] Granulocyte % 76.0 % 06/06/2024 2:08 PM [facility] CD45 DIM % 0.9 % 06/06/2024 2:08 PM [facility] CD38 Bright/CD138+ 0.2 % 06/06/2024 2:08 PM [facility] CD3+ % 70.0 % 06/06/2024 2:08 PM [facility] CD19+ % 17.0 % 06/06/2024 2:08 PM [facility] CD56+ % 12.0 % 06/06/2024 2:08 PM [facility] B-Cell:T-Cell Ratio 0.2 06/06/2024 2:08 PM [facility] Lemay:Lambda Ratio 1.8 06/06/2024 2:08 PM [facility] CD4:CD8 Ratio 1.6 06/06/2024 2:08 PM [facility] Specimen Processing Cells for immunophenotypic analysis were derived from bone marrow. The following markers were assessed: CD2, CD3, CD4, CD5, CD7, CD8, CD10, CD19, CD20, CD38, CD45, CD56, CD138, kappa light chain, (c)kappa light chain, lambda light chain, (c)lambda light chain,CD13, CD14, CD34, CD45, CD117, and HLA-DR. 06/06/2024 2:08 PM [facility] Disclaimer Flow analysis is an ancillary study. A definite diagnosis requires correlation with the morphologic features of this process and if necessary, correlation with other ancillary studies like immunohistochemist ry, enzyme cytochemistry and/or cyto/molecular genetics. This test was developed and its performance characteristics determined by the Clinical Flow Cytometry Laboratory at [facility]. It has not been cleared [...] complexity clinical laboratory testing. 06/06/2024 2:08 PM [facility] Bone Marrow Non Blood Collection / Unknown 06/05/2024 2:22 PM EST 06/05/2024 3:07 PM EST Georges Boucher MD HEMATOLOGY ORDERABLE S [facility] [place] [address] * BM HOLD CYTOGENETICS/FISH (06/05/2024 2:22 PM EST) Bone Marrow Non Blood Collection / Unknown 06/05/2024 2:22 PM EST 06/05/2024 3:07 PM EST Narrative [facility] - 06/06/2024 10:47 AM EST ~3ml Markel Bojras MD PATHOLOGY/CYTOLOGY ORDERABLES Performing Organization Address [facility] Co de Phone Number [facility] [place] [address] * BM HOLD FLOW/MOLECULAR (06/05/2024 2:22 PM EST) Bone Marrow Non Blood Collection / Unknown 06/05/2024 2:22 PM EST 06/05/2024 3:07 PM EST Markel Borjas MD PATHOLOGY/CYTOLOGY ORDERABLES Performing Organization Address [facility] [place] [address] * Bone Marrow (06/05/2024 2:22 PM EST) Case Report Bone Marrow Patholog y Report ?Case: [id number] ? Authorizing Provider: ??Markel Borjas MD ?Collected: ? 06/05/2024 1422 ? Ordering Location: ? [facility] ??Received: ?06/05/2024 1508 ? [facility] ? Hospital ? Pathologist: ? Georges Boucher, ? Specimens: ?? A) - Iliac Crest, Left ? B) - Iliac Crest, Left ? C) - Iliac Crest, Left ? 4 1:36 PM EST [facility] Final Diagnosis BONE MARROW (BLOOD FILM, ASPIRATE, TOUCH PREP, CORE & CLOT SECTIONS): 1. Normocellular bone marrow with maturing trilineage hematopoiesis. No overt dysplasia or increased blasts. 2. Ancillary studies pending. 4 1:36 PM EST [facility] Discussion The patient's histor y [...] integrated report to follow. 4 1:36 PM [facility] Additional Studies Task ID IHC/Special Stains Result B1-3 Myeloperoxidase Highlights granulocytic precursors. B1-4 CD34 Highlights rare blasts (<5% of cells) B1-5 CD117 Highlights rare mast cells. B1-6 E-Cadherin Highlights normal erythroid precursors. B1-7 CD61 Highlights normal megakaryocytes. 4 1:36 PM [facility] Clinical Information Anemia, in patient with presumed hx of benign neutropenia 4 1:36 PM [facility] Gross Description A. Iliac Crest, Left. Number of Lavender (EDTA) tubes: 3 Total Volume of Lavender (EDTA) tubes: 8 ml Number of Green (NaHep) tubes: 1 Total Volume of Green (NaHep) tubes: 3 ml Spicule/Clot Section submitted? Present Tube to Biorepository? Present Processed by: Abbie Barrow Collected off the [facility] by: N/A B. Iliac Crest, [...] cassette labeled C1. CCP 4 1:36 PM [facility] Disclaimer(s) Formalin-fixed, paraffin-embedded tissue sections [...] criteria and other diagnostic tests. 1:36 PM [facility] Bone Marrow Aspirate Adequacy: Smear/touch [...] stores present, no ring sideroblasts. 1:36 PM [facility] Bone Marrow Biopsy and/or Clot [...] Trabecular bone normal for age. 1:36 PM [facility] Bone Marrow Differential Band/Seg 34%; Lymph 8%; Weakley 0%; Eos 2%; Baso 1%; Metamyelocyte 13%; Myelocyte 9%; Promyelocyte 2%; Blast 1%; nRBC's 27%; Plasma cell 3% 4 1:36 PM [facility] Result Note Routine 1:36 PM [facility] Peripheral Blood Morphology RBCs: Mildly macrocytic anemia with rare target cells, ovalocytes. WBCs: Unremarkable. Platelets: Rare large platelet form present. 1:36 PM [facility] STRUCTURE OF LEFT ILIAC CREST / Unknown 06/05/2024 2:22 PM EST 06/05/2024 3:08 PM EST STRUCTURE OF LEFT ILIAC CREST / Unknown 06/05/2024 2:22 PM EST 06/05/2024 3:08 PM EST STRUCTURE OF LEFT ILIAC CREST / Unknown 06/05/2024 2:22 PM EST 06/05/2024 3:08 PM EST Markel Borjas MD PATHOLOGY/CYTOLOGY ORDERABLES [facility] [place] [address] * (ABNORMAL) CBC (with Diff) (06/05/2024 1:45 PM EST) White Blood Cell 3.06(L) 4.00 - 9.50 x10(3)/mc L 06/05/2024 2:38 PM [facility] Red Blood Cell 3.35(L) 4.00 - 5.21 x10(6)/mc L 06/05/2024 2:38 PM [facility] Hemoglobin 11.0(L) 11.7 - 15.5 g/dL 06/05/2024 2:38 PM [facility] Hematocrit 33.4(L) 35.7 - 45.8 % 06/05/2024 2:38 PM EST [facility] Mean Cell Volume 99.7(H) 82.6 - 94.4 fL 06/05/2024 2:38 PM [facility] Mean Cell Hemoglobin 32.8(H) 27.1 - 32.0 pg 06/05/2024 2:38 PM [facility] Mean Cell Hemoglobin Concentration 32.9 31.7 - 35.0 g/dL 06/05/2024 2:38 PM EST [facility] Platelet 151 145 - 357 x10(3)/mc L 06/05/2024 2:38 PM [facility] Mean Platelet Volume 8.9 7.6 - 12.9 fL 06/05/2024 2:38 PM [facility] RDW Standard Deviation 44.3 37.0 - 46.0 fL 06/05/2024 2:38 PM [facility] RDW coefficient of variation 12.0 11.5 - 14.1 % 06/05/2024 2:38 PM [facility] NRBC% auto 0.0 % 06/05/2024 2:38 PM [facility] NRBC Absolute <0.01 <0.01 x10(3)/mc L 06/05/2024 2:38 PM [facility] Neutrophil % 62.8 % 06/05/2024 2:38 PM [facility] Neutrophil Absolute (ANC) - Automated 1.92 1.70 - 6.10 x10(3)/mc L 06/05/2024 2:38 PM [facility] Lymph % 20.9 % 06/05/2024 2:38 PM [facility] Lymph Absolute 0.64(L) 0.90 - 3.20 x10(3)/mc L 06/05/2024 2:38 PM [facility] Monocyte % 15.0 % 06/05/2024 2:38 PM [facility] Monocyte Absolute 0.46 0.30 - 0.90 x10(3)/mc L 06/05/2024 2:38 PM [facility] Eos % 0.3 % 06/05/2024 2:38 PM [facility] Eos Absolute <0.04 0.00 - 0.40 x10(3)/mc L 06/05/2024 2:38 PM [facility] Basophil % 0.7 % 06/05/2024 2:38 PM [facility] Baso Absolute [...] MD HEMATOLOGY ORDERAB LES [facility] [place] [address] documented in this encounter Visit Diagnoses Not [...] RN) documented in this encounter Care Teams Automated Access Systems Technician Relationship Specialty Start Date End Date Magdalena Acosta MD [address] [place] [address] PCP - General Family Medicine 02/05/23 documented as of this encounter
--- OUTSIDE RECORDS SUMMARY | 2024-06-13 14:09 | XMS_ITS | Encounter Summary ---
Author Organization [facility] Address [address] [place] [address] Care Team Providers Care Aviation Support Equipment Repairer Name Role Phone Scott, Ashley WILLIAM Primary Care Provider [phone] Encounter Details Date Type Department Care Team (Late st Contact Info) Description 03/21/2024 Lab Requisition [facility] Pathology & Laboratory Medicine - [address] [address] Consuelo Guerrero, DO [address] [place], [place] [address] Encounter for other general examination Social History [...] 13:00 EDT) LORY Negative 03/21/2024 22:31 EDT [facility] Blood VENOUS BLOOD / Unknown 03/21/2024 13:00 EDT 03/21/2024 21:51 EDT us Consuelo Guerrero DO BLOOD BANK TESTS Final Result Performing Organization Address City/State/[facility] Co de Phone Number [facility] [address] [place] [address] documented in this encounter Visit Diagnoses Diagnosis Encounter for other general examination documented in this encounter Care Teams Aviation Support Equipment Repairer Relationship Specialty Start Date End Date Ashley Chavez ARNP [address] [place] [address] PCP - General 07/11/10 documented as of this encounter
--- OUTSIDE RECORDS SUMMARY | 2024-06-13 14:09 | XMS_ITS | Encounter Summary ---
Author Organization [facility] Address [address] [place] [address] Care Team Providers Care Printed Forms Proofreader Name Role Phone Scott, Ashley WILLIAM Primary Care Provider [phone] Encounter Details Date Type Department Care Team (Late st Contact Info) Description 05/12/2019 Results Only [facility] [phone] Nadira Gregorio MD [address] [place] [phone] Social History Tobacco Use Types Packs/Day [...] ? PURNIMA THACKER ? Accession #: ? [id number] ? : ? 1955 (Age: 63) ??F ? Collect Date: ? 05/12/2019 ? Location: ? [facility] ? Receive Date: ? 05/12/2019 ? Provider: NADIRA GREGORIO MD Copy to: WINTER HANKINS METALLURGICAL ENGINEERING TECHNICIAN ? Final Pathologic Diagnosis: COLON, CECUM, POLYP, [...] (ASCP) 05/12/2019 6:08 PM End of Report [facility] 05/12/2019 16:0 3 EDT 05/12/2019 16:03 EDT us Nadira Gregorio MD PATHOLOGY ORDERABLES Final Resul t [facility] [address] [place] [address] documented in this encounter Visit Diagnoses Not on filedocumented in this encounter Care Teams Printed Forms Proofreader Relationship Specialty Start Date End Date Ashley Chavez ARNP [address] [place] [address] PCP - General 12/10/10 documented as of this encounter
--- OUTSIDE RECORDS SUMMARY | 2024-06-13 14:09 | XMS_ITS | Encounter Summary ---
Author Organization [facility] Address [facility] [place] [address] Care Team Providers Care Patient Intake Coordinator Name Role Phone Magdalena Acosta MD Primary Care Provider [phone] Encounter Details Date Type Department Care Team [...] EST Office Visit Hematology [place] [address] [facility] [address] [place] [address] 11/02/2024 12:00 PM EDT Appointment [place] [address] 11/02/2024 1:00 PM EDT Office [place] [address] [facility] [place] [address] 03/01/2025 4:15 PM EDT Office Visit Dermatology at [place] [address] [facility] [place] [phone] Marek Bonilla MD [address] [place] [address] documented as of this encounter Visit Diagnoses Not on filedocumented in this encounter Care Teams Patient Intake Coordinator Relationship Specialty Start Date End Date Magdalena Acosta MD [address] [place] [address] PCP - General Family Medicine 02/05/23 documented as of this encounter
--- OUTSIDE RECORDS SUMMARY | 2024-06-13 14:09 | XMS_ITS | Encounter Summary ---
Author Organization [facility] Address [facility] [place] [address] Care Team Providers Care Electric Cell Tender Name Role Phone Magdalena Acosta MD Primary Care Provider Reason for Visit * Reason Onset Date Comments Medication Refill 05/24/2024 Encounter Details Date Type Department Care Team (Late st Contact Info) Description 05/24/2024 Refill [place] [address] [facility] [place] [address] Social History Tobacco Use Types Packs/Day Years [...] 200 mg tablet [facility] - [place], [place] - [address] [facility] [address] [facility] [address] documented in this encounter Plan of Treatment Upcoming Encounters Date Type Department Care Team (Late st Contact Info) Description 06/23/2024 2:00 PM EST Office Visit Hematology [place] [address] [facility] [address] [place] [address] 11/02/2024 12:00 PM EDT Appointment [place] [address] 11/02/2024 1:00 PM EDT Office [place] [address] [facility] [place] [address] 03/01/2025 4:15 PM EDT Office Visit Dermatology at [address] [place] [phone] Marek Bonilla MD [address] [facility] [place] [address] documented as of this encounter Visit Diagnoses Not on filedocumented in this encounter Care Teams Electric Cell Tender Relationship Specialty Start Date End Date Magdalena Acosta MD [address] [place] [address] PCP - General Family Medicine 02/05/23 documented as of this encounter
--- OUTSIDE RECORDS SUMMARY | 2024-06-13 14:09 | XMS_ITS | Encounter Summary ---
[place] [address] Care Team Providers Care Court Bailiff Or Sheriff Name Role Phone Magdalena Acosta MD Primary Care Provider [phone] Encounter Details Date Type Department Care Team (Late st Contact Info) Description 05/18/2024 Interpretation Only [address] [address] Magdalena Acosta MD [address] [place], [place] [id number] Social History Tobacco Use Types Packs/Day Years [...] EST Office Visit Hematology [place] [address] Markel Borjas MD [facility] [address] [place] [address] 11/02/2024 12:00 PM EDT Appointment [place] [address] 11/02/2024 1:00 PM EDT Office [place] [address] Magdalena Peralta MD [facility] [place] [address] 03/01/2025 4:15 PM EDT Office Visit Dermatology at [place] [address] [place] [phone] Marek Bonilla MD [address] [place] [address] documented as of this encounter Procedures Procedure Name Priority Date/Time Associated Diagnosis Comments MAMMO SCREENING CAD BILATERAL (CH) Routine 05/18/2024 11:21 AM EDT documented in this encounter Results * MAMMO SCREENING CAD BILATERAL (CH) (05/18/2024 11:21 AM EDT) PT CLASS O RAD ADMITDTTM [id number] RAD PT RAD INFO [id number]^Dave ^Magdalena RAD EXAM [facility]^MG Mammo Digital Screening Bilateral.^RIS RAD WORKSTATION [...] have questions please contact the health medicare compliance auditor that requested your imaging first. ? [address] ??[address] Narrative 05/18/2024 3:05 PM EDT EXAMINATION: MG [...] who have questions please contactthe health medicare compliance auditor that requested [place] [address] Magdalena Acosta MD [facility] documented in this encounter Visit Diagnoses Not on filedocumented in this encounter Care Teams Court Bailiff Or Sheriff Relationship Specialty Start Date End Date Magdalena Acosta MD [address] [place] [address] PCP - General Family Medicine 02/05/23 documented as of this encounter
--- OUTSIDE RECORDS SUMMARY | 2024-06-13 14:09 | XMS_ITS | Encounter Summary ---
Author Organization [facility] Address [address] [place] [address] Care Team Providers Care Firefighter Type One Name Role Phone Ashley Chavez Primary Care Provider [phone] Encounter Details Date Type Department Care Team (Late st Contact Info) Description 04/29/2022 Lab Requisition [facility] Pathology & Laboratory Medicine - [address] [address] Outr Resulting Lab, Provider Social History Tobacco [...] 16:42 EDT Provider Outr Resulting Lab IMMUNOLOGY AND SEROL OGY ORDERABLES Final Result Performing Organization Address [facility] de Phone Number [facility] [address] [place] [address] * SSA ANTIBODIES BY DOMO (04/29/2022 7:51 [...] Unknown 04/29/2022 7:51 EDT 04/29/2022 16:42 EDT us Provider Outr Resulting Lab IMMUNOLOGY AND SEROL OGY ORDERABLES Final Result Performing Organization Address [facility] de Phone Number [facility] [address] [place] [address] documented in this encounter Visit Diagnoses Not on filedocumented in this encounter Care Teams Firefighter Type One Relationship Specialty Start Date End Date Ashley Chavez ARNP [address] [place] [address] PCP - General 07/11/10 documented as of this encounter
--- OUTSIDE RECORDS SUMMARY | 2024-06-13 14:09 | XMS_ITS | Encounter Summary ---
Author Organization [facility] Address [facility] [place] [address] Care Team Providers Care Structural Steel Ironworker Name Role Phone Magdalena Acosta MD Primary Care Provider [phone] Encounter Details Date Type Department Care Team [...] EST Office Visit Hematology [place] [address] Markel Borjas MD [facility] [address] [place] [address] 11/02/2024 12:00 PM EDT Appointment [place] [address] 11/02/2024 1:00 PM EDT Office [place] [address] Magdalena Peralta MD [facility] [place] [address] 03/01/2025 4:15 PM EDT Office Visit Dermatology at [place] [address] [facility] [place] [address] Marek Bonilla MD [address] [place] [address] documented as of this encounter Visit Diagnoses Not on filedocumented in this encounter Care Teams Structural Steel Ironworker Relationship Specialty Start Date End Date Magdalena Acosta MD [address] [place] [address] PCP - General Family Medicine 02/05/23 documented as of this encounter
--- OUTSIDE RECORDS SUMMARY | 2024-06-13 14:09 | XMS_ITS | Encounter Summary ---
Author Organization [facility] Address [address] [place] [address] Care Team Providers Care Housekeeping And Laundry Team Leader Name Role Phone Scott Ashley WILLIAM Primary Care Provider [phone] Encounter Details Date Type Department Care Team (Late st Contact Info) Description 11/10/2013 Results Only [facility] [phone] Jeni Laird, PROFESSOR OF GRAPHIC DESIGN [address] [place], [place] [phone] Social History Tobacco Use Types Packs/Day Years [...] ? PURNIMA THACKER ? Accession #: ? [id number] : ? 1955 (Age: 58) ??F ?Collect Date: ? 11/10/2013 Location: ? [facility] ? Receive Date: ? 11/14/2013 Provider: ?JENI LAIRD PROFESSOR OF GRAPHIC DESIGN Copy to: ? Specimen/Source: ?Pap Test, Endocervix, [...] End of Report PAUL ARELLANO 11/10/2013 11/14/2013 us Jeni Laird PROFESSOR OF GRAPHIC DESIGN PATHOLOGY ORDERABLES Magy morgan Result PAUL ARELLANO [address] [place] [address] documented in this encounter Visit Diagnoses Not on filedocumented in this encounter Care Teams Housekeeping And Laundry Team Leader Relationship Specialty Start Date End Date Ashley Chavez ARNP [address] [place] [address] PCP - General 07/11/10 documented as of this encounter
--- OUTSIDE RECORDS SUMMARY | 2024-06-13 14:09 | XMS_ITS | Encounter Summary ---
Author Organization [facility] Address [address] [place] [address] Care Team Providers Care Compliance Review Specialist Name Role Phone Unavailable Primary Care Provider Unavailabl e Encounter Details Date Type Department Care Team (Late st Contact Info) Description 07/08/[address] [facility] Non-Invasive Cardiology - [facility] [address] [place] [address] Ashley Chavez, WILLIAM [address] [place] [address] Social History Tobacco Use Types Packs/Day Years [...] ? PURNIMA THACKER ? Accession #: ? [id number] ? : ? 1955 (Age: 54) ??F [...] of Report ? PAUL ARELLANO 07/08/2010 07/10/2010 us Ashley THOMAS PATHOLOGY ORDERABLES Final Res ult PAUL ARELLANO [address] [place] [address] documented in this encounter Visit Diagnoses Not on filedocumented in this encounter
--- OUTSIDE RECORDS SUMMARY | 2024-06-13 14:09 | XMS_ITS | Encounter Summary ---
Author Organization [facility] Address [address] [place] [address] Care Team Providers Care Patient Registration Representative Name Role Phone Ashley Chavez Primary Care Provider [phone] Encounter Details Date Type Department Care Team (Late st Contact Info) Description 01/07/2023 Lab Requisition [facility] Pathology & Laboratory Medicine - [address] [address] Outr Resulting Lab, Provider Social History Tobacco [...] 56.2 55.8 - 66.1 % 01/08/2023 11:28 [facility] Albumin g/dL 3.9 3.6 - 5.2 g/dL 01/08/2023 11:28 [facility] Alpha-1 % 5.1(H) 2.9 - 4.9 % 01/08/2023 11:28 [facility] Alpha-1 g/dL 0.40 0.15 - 0.40 g/dL 01/08/2023 11:28 [facility] Alpha-2 % 7.0(L) 7.1 - 11.8 % 01/08/2023 11:28 [facility] Alpha-2 g/dL 0.50 0.50 - 1.00 g/dL 01/08/2023 11:28 [facility] Beta % 12.7 8.4 - 13.1 % 01/08/2023 11:28 [facility] Beta g/dL 0.90 0.60 - 1.20 g/dL 01/08/2023 11:28 [facility] Gamma % 19.0(H) 11.1 - 18.8 % 01/08/2023 11:28 [facility] Gamma g/dL 1.30 0.60 - 1.60 g/dL 01/08/2023 11:28 [facility] SPEP Comment No apparent monoclonal protein seen on serum electrophoresis 01/08/2023 11:28 [facility] Comment:See scanned/suppleme ntary report. Total Protein 6.9 6.3 - 8.2 g/dL 01/08/2023 11:28 [facility] Blood VENOUS BLOOD / Unknown 01/06/2023 14:40 EDT 01/07/2023 17:37 EDT us Provider Outr Resulting Lab CHEMISTRY & BLOOD GA S ORDERABLES Final Result Performing Organization Address [facility] de Phone Number [facility] [address] [place] [address] * PROTEIN, TOTAL (01/06/2023 14:40 EDT) Blood VENOUS BLOOD / Unknown 01/06/2023 14:40 EDT 01/07/2023 17:37 EDT us Provider Outr Resulting Lab CHEMISTRY & BLOOD GA S ORDERABLES Final Result Performing Organization Address [facility] de Phone Number [facility] [address] [place] [address] * (ABNORMAL) EXTRACTABLE NUCLEAR ANTIGEN PANEL (01/06/2023 14:40 EDT) SSA Antibody 1.3 <20.0 Units 01/08/2023 15:42 EDT [facility] Comment: ? Negative: <20.0 Units ? Weak Positive: 20.0 - 39.9 Units ? Moderate Positive: 40.0 - 80.0 Units ? Strong Positive: >80.0 Units Results were obtained with the [employer] QUANTA Lite SS-A DOMO. ??SS-A values obtained with different manufacturers' assay methods may not be used interchangeably. ??The magnitude of the reported IgG levels cannot be correlated to an endpoint titer. SSB Antibody 1.5 <20.0 Units 01/08/2023 15:42 EDT [facility] Comment: ? Negative: <20.0 Units ? Weak Positive: 20.0 - 39.9 Units ? Moderate Positive: 40.0 - 80.0 Units ? Strong Positive: >80.0 Units Results were obtained with the [employer] QUANTA Lite SS-B DOMO. ??SS-B values obtained with different manufacturers' assay methods may not be used interchangeably. ??The magnitude of the reported IgG levels cannot be correlated to an endpoint titer. SM (Moreno) Antibody 15.3 <20.0 Units 01/08/2023 15:42 EDT [facility] Comment: ? Negative: [...] cannot be correlated to an endpoint titer. CERTIFIED ANESTHESIOLOGIST ASSISTANT Antibody 149.1(H) <20.0 Units 01/08/2023 15:42 [facility] Comment: ? Negative: <20.0 Units ? Weak Positive: 20.0 - 39.9 Units ? Moderate Positive: 40.0 - 80.0 Units ? Strong Positive: >80.0 Units Results were obtained with the [employer] Quanta Lite CERTIFIED ANESTHESIOLOGIST ASSISTANT DOMO. CERTIFIED ANESTHESIOLOGIST ASSISTANT values obtained with different transit survey worker's assay methods may not be used interchangeaby. ??The magnitude of the reported IgG levels cannot be be correlated to an endpoint titer. A positive result in the Quanta Lite CERTIFIED ANESTHESIOLOGIST ASSISTANT DOMO indicates the presence of antibodies reactive with the CERTIFIED ANESTHESIOLOGIST ASSISTANT/Sm complex but cannot distinguish between anti-Sm and anti-CERTIFIED ANESTHESIOLOGIST ASSISTANT activity. Blood VENOUS BLOOD / Unknown 01/06/2023 14:40 EDT 01/07/2023 17:37 EDT us Provider Outr Resulting Lab IMMUNOLOGY AND SEROL OGY ORDERABLES Final Result [facility] [address] [place] [address] * (ABNORMAL) ANTI NUCLEAR AB (FRANCISCO), IFA (01/06/2023 14:40 EDT) FRANCISCO Interpretation Positive(A) Negative 01/08/2023 15:22 EDT [facility] Comment: [...] Pattern 1 1:5120 Speckled 01/08/2023 15:22 EDT [facility] Blood VENOUS BLOOD / Unknown 01/06/2023 14:40 EDT 01/07/2023 17:37 EDT Narrative [facility] - 01/08/2023 15:22 EDT Results were obtained with the [employer] NOVA Lite HEp-2 FRANCISCO Kit by indirect immunofluorescence. us Provider Outr Resulting Lab IMMUNOLOGY AND SEROL OGY ORDERABLES Final Result [facility] [address] [place] [address] documented in this encounter Visit Diagnoses Not on filedocumented in this encounter Care Teams Patient Registration Representative Relationship Specialty Start Date End Date Ashley Chavez ARNP [address] [place] [address] PCP - General 07/11/10 documented as of this encounter
--- OUTSIDE RECORDS SUMMARY | 2024-06-13 14:09 | XMS_ITS | Encounter Summary ---
Author Organization [facility] Address [address] [place] [address] Care Team Providers Care Millinery Worker Name Role Phone Ashley Chavez Primary Care Provider [phone] Encounter Details Date Type Department Care Team (Late st Contact Info) Description 05/12/2022 Lab Requisition [facility] Pathology & Laboratory Medicine - [address] [id number] Outr Resulting Lab, Provider Social History Tobacco [...] 14:32 EDT) Hold Hold 05/12/2022 22:46 EDT [facility] Blood VENOUS BLOOD / Unknown 05/12/2022 14:32 EDT 05/12/2022 21:40 EDT us Provider Outr Resulting Lab LAB INFO SERVICE AND SUPPORT & PHONE RESULT Final Result Performing Organization Address [facility] Co de Phone Number [facility] [address] [place] [address] * (ABNORMAL) HOMOCYSTEINE (05/12/2022 14:32 EDT) Homocysteine 14.7(H) 5.0 - 13.9 umol/L 05/13/2022 9:05 EDT [facility] Comment:Results may be false ly elevated if sample is not collected on ice or is not removed from cells within 1 hour of collection. Blood VENOUS BLOOD / Unknown 05/12/2022 14:32 EDT 05/12/2022 21:40 EDT Narrative [facility] - 05/13/2022 9:05 EDT Reference range may not apply to non-fasting samples. ??It is not recommended that EDTA plasma and serum from the same patient be used interchangeably. ??Serum concentrations have been observed to be up to 10% higher than EDTA plasma. Reference range may not apply to serum results. us Provider Outr Resulting Lab CHEMISTRY & BLOOD GA S ORDERABLES Final Result Performing Organization Address [facility] Co de Phone Number [facility] [address] [place] [address] * HAPTOGLOBIN (05/12/2022 14:32 EDT) Haptoglobin 138 32 - 197 mg/dL 05/13/2022 9:55 EDT [facility] Blood VENOUS BLOOD / Unknown 05/12/2022 14:32 EDT 05/12/2022 21:36 EDT us Provider Outr Resulting Lab CHEMISTRY & BLOOD GA S ORDERABLES Final Result Performing Organization Address [facility]/State/ZIP Co de Phone Number [facility] [address] [place] [address] * (ABNORMAL) ANTI NUCLEAR AB (FRANCISCO), IFA (05/12/2022 14:32 EDT) FRANCISCO Interpretation Positive(A) Negative 05/13/2022 14:44 EDT [facility] Comment: Result is [...] Pattern 1 1:5120 Speckled 05/13/2022 14:44 EDT [facility] Blood VENOUS BLOOD / Unknown 05/12/2022 14:32 EDT 05/12/2022 21:36 EDT Narrative [facility] - 05/13/2022 14:44 EDT Results were obtained with the [employer] NOVA Lite HEp-2 FRANCISCO Kit by indirect immunofluorescence. us Provider Outr Resulting Lab IMMUNOLOGY AND SEROL OGY ORDERABLES Final Result [facility] [address] [place] [address] documented in this encounter Visit Diagnoses Not on filedocumented in this encounter Care Teams Millinery Worker Relationship Specialty Start Date End Date Ashley Chavez ARNP [facility] [place] [address] PCP - General 07/11/10 documented as of this encounter
--- OUTSIDE RECORDS SUMMARY | 2024-06-13 14:09 | XMS_ITS | Encounter Summary ---
Author Organization [facility] Address [address] [place] [address] Care Team Providers Care Ed Case Manager Name Role Phone Unavailable Primary Care Provider Unavailabl e Encounter Details Date Type Department Care Team (Late st Contact Info) Description 03/24/2007 11:06 EDT - 03/24/2007 11:59 EDT Hospital Encounter [facility] - Other [address] [place] [address] Ashley Chavez ARNP [address] [place] [address] Discharge Disposition: Home or Self Care Social [...]
--- OUTSIDE RECORDS SUMMARY | 2024-06-13 14:09 | XMS_ITS | Encounter Summary ---
Author Organization [facility] Address [address] [place] [address] Care Team Providers Care Supervisor Cutting Department Name Role Phone Unavailable Primary Care Provider Unavailabl e Encounter Details Date Type Department Care Team (Late st Contact Info) Description 03/24/2007 Results Only [facility] Non-Invasive Cardiology - [facility] [address] [place], [place] [address] Ashley Chavez, WILLIAM [address] [place] [address] Social History Tobacco Use Types Packs/Day Years [...] ? 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 Accession #: ? [id number] : ? 1955 (Age: 51) ??F ?Collect Date: ? 03/24/2007 Location: ? [facility] ? Receive Date: ? 03/28/2007 Provider: ?ASHLEY THOMAS Copy to: ? Specimen/Source: ?ThinPrep Pap Test, Endocervix, processed on [employer] ThinPrep Imaging System, with manual evaluation [...] End of Report PAUL ARELLANO 03/24/2007 03/28/2007 us Ashley THOMAS PATHOLOGY ORDERABLES Final Res ult PAUL ARELLANO [address] [place] [address] documented in this encounter Visit Diagnoses Not on filedocumented in this encounter
--- OUTSIDE RECORDS SUMMARY | 2024-06-13 14:09 | XMS_ITS | Clinical Summary ---
Author Organization [facility] Address [facility] [place] [address] Care Team Providers Care English As A Second Language Instructor Name Role Phone Magdalena Acosta MD Primary Care Provider [phone] Allergies No known active allergies Medications Medication [...] fraction 05/08/2023 Mild coronary artery disease by [facility] 11/09/2022 Heart failure with [...] 2:00 PM EST - 06/05/2024 3:00 PM [facility] Surgery [place] [address] Markel Borjas MD [facility] BONE MARROW BIOPSY AND ASPIRATION; DIAGNOSTIC (WRVU 1.44) 06/05/2024 1:04 PM EST - 06/05/2024 3:08 PM EST Hospital Encounter [place] [place] [address] Markel Borjas MD Discharge Disposition: Home 06/01/2024 10:00 AM EDT Office Visit Rheumatology at [place] [phone] Magdalena Peralta MD Mixed connective tissue disease 05/31/2024 Travel 05/24/2024 Refill Internal Medicine at [place] [phone] Magdalena Peralta MD 05/18/2024 Interpretation Only [address] [address] Magdalena Acosta MD 05/18/2024 Interpretation Only [address] [phone] Magdalena Acosta MD 05/12/2024 10:00 AM EDT Office Visit Hematology [place] [phone] Markel Borjas MD Chronic idiopathic neutropenia 05/12/2024 9:00 AM EDT Laboratory Appointment Lab at [facility] Hematology Oncology [address] [place], [place] [phone] S/P TAVR (transcatheter aortic valve replacement); Chronic idiopathic neutropenia 05/12/2024 Travel 05/10/2024 Travel 04/11/2024 Transcribe Orders eDH Incoming Referrals [phone] Consuelo Guerrero DO Anemia, unspecified type from Last 3 Months Immunizations Name Administration Dates Next Due Influenza Quadrivalent (FluAd) Adjuvanted 2022 Influenza Unspecified Formulation 05/18/2016 Social History Tobacco Use Types Packs/Day Years Used Date Smoking Tobacco: Never Smokeless Tobacco: Never Tobacco Cessation:Counseling Given: Not Answered Alcohol Use Standard Drinks/Week Comments No 0 (1 standard drink = 0.6 oz pur e alcohol) none [facility] Inpatient Questions Answer Date Recorded [...] EST Office Visit Hematology [place] [phone] Markel Borjas MD [facility] [address] HEMATOLOGY [place] [address] 11/02/2024 12:00 PM EDT Appointment [place] [phone] 11/02/2024 1:00 PM EDT Office Visit [place] [address] Magdalena Peralta MD [facility] [place] [address] 03/01/2025 4:15 PM EDT Office Visit Dermatology at [place] [address] [phone] Marek Bonilla MD [address], [place] [address] Health Maintenance Due Date Last Done Comments [...] 05/18/2024, 06/05/2021 Medical Devices Implanted Type Area Carpet Jack Device Identifier Shelf Expiration Date Model / Serial / Lot Valve,Aor,Pericar d,Magna,25mm ([id number]) - [id number] Implanted:Qty: 1 on 09/21/2016 by Alirio Esparza MD at [facility] IMPLANTS N/A: Heart DO NOT USE [employer] - [id number] 06/02/2020 [id number] / / [id number] Cable,Blnt,Ss,38i n ([id number]) - [id number] Implanted:Qty: 4 on 09/21/2016 by Alirio Esparza MD at [facility] IMPLANTS N/A: Chest [employer] - [id number] 04/29/2021 [id number] / / [id number] Patch,Cav,Pericar d,2x5cm ([id number]) (Autoreq) - [id number] Implanted:Qty: 1 on 09/21/2016 by Alirio Esparza MD at [facility] IMPLANTS N/A: Heart DO NOT USE [employer] - [id number] 04/21/2018 [id number] / / [id number] Tavr-05/12/2023 Implanted:Qty: 1 on 05/12/2023 by Antelmo Sharma MD Other Heart [employer] - [place] [id number] / [id number] / Description:[employer] ABBY 3 ULTRA RESILIA TRANSCATHETER HEART VALVE Procedures Procedure Name Priority Date/Time Associated Diagnosis Comments BM HOLD CG/FISH Routine 06/05/2024 2:22 PM EST BM HOLD FLOW/MOLECULAR Routine 2:22 PM EST BONE MARROW ANALYSIS Routine 06/05/2024 2:22 PM EST BONE MARROW Routine 06/05/2024 2:22 PM EST MYELODYSPLASTIC SYNDROME (MDS) FISH PANEL Routine 06/05/2024 2:22 PM EST DH HEMESEQ (BONE MARROW) Routine 2:22 PM EST IMMUNOPHENOTYPING FLOW CYTOMETRY Routine 06/05/2024 2:22 PM EST Diagnostic Bone Marrow Biopsies & Aspirations (33901) 06/05/2024 2:03 PM EST Anemia, in pt [...] Borjas MD PATHOLOGY/CYTOLOGY ORDERABLES Performing Organization Address [facility] Co de Phone Number [facility] [place] [address] * BM HOLD FLOW/MOLECULAR (06/05/2024 2:22 PM EST) Bone Marrow Non Blood Collection / Unknown 06/05/2024 2:22 PM EST 06/05/2024 3:07 PM EST Markel Borjas MD PATHOLOGY/CYTOLOGY ORDERABLES Performing Organization Address [facility] Co de Phone Number [facility] [place] [address] * Bone Marrow (06/05/2024 2:22 PM EST) Case Report Bone Marrow Patholog y Report ?Case: [id number] ? Authorizing Provider: ??Markel Borjas MD ?Collected: ? 06/05/2024 1422 ? Ordering Location: ? [facility]patient Surgery Center ??Received: ?06/05/2024 1508 ? [facility] ? Hospital ? Pathologist: ? Boucher, Georges L, MD ? Specimens: ?? A) - Iliac Crest, Left ? B) - Iliac Crest, Left ? C) - Iliac Crest, Left ? 4 1:[address] [facility] Final Diagnosis BONE MARROW (BLOOD FILM, ASPIRATE, TOUCH PREP, CORE & CLOT SECTIONS): 1. Normocellular bone marrow with maturing trilineage hematopoiesis. No overt dysplasia or increased blasts. 2. Ancillary studies pending. 4 1:[address] [facility] Discussion The patient's histor y [...] integrated report to follow. 4 1:[address] [facility] Additional Studies Task ID IHC/Special Stains Result B1-3 Myeloperoxidase Highlights granulocytic precursors. B1-4 CD34 Highlights rare blasts (<5% of cells) B1-5 CD117 Highlights rare mast cells. B1-6 E-Cadherin Highlights normal erythroid precursors. B1-7 CD61 Highlights normal megakaryocytes. 4 1:[address] [facility] Clinical Information Anemia, in patient with presumed hx of benign neutropenia 4 1:[address] [facility] Gross Description A. Iliac Crest, Left. Number of Lavender (EDTA) tubes: 3 Total Volume of Lavender (EDTA) tubes: 8 ml Number of Green (NaHep) tubes: 1 Total Volume of Green (NaHep) tubes: 3 ml Spicule/Clot Section submitted? Present Tube to Biorepository? Present Processed by: Abbie Barrow Collected off the [facility] by: N/A B. Iliac Crest, Left. [...] cassette labeled C1. CCP 4 1:[address] [facility] Disclaimer(s) Formalin-fixed, paraffin-embedded tissue sections [...] criteria and other diagnostic tests. 1:[address] [facility] Bone Marrow Aspirate Adequacy: Smear/touch [...] stores present, no ring sideroblasts. 1:[address] [facility] Bone Marrow Biopsy and/or Clot [...] Trabecular bone normal for age. 1:[address] [facility] Bone Marrow Differential Band/Seg 34%; Lymph 8%; [place] 0%; Eos 2%; Baso 1%; Metamyelocyte 13%; Myelocyte 9%; Promyelocyte 2%; Blast 1%; nRBC's 27%; Plasma cell 3% 4 1:36 PM EST [facility] Result Note Routine 1:36 PM EST [facility] Peripheral Blood Morphology RBCs: Mildly macrocytic anemia with rare target cells, ovalocytes. WBCs: Unremarkable. Platelets: Rare large platelet form present. 4 1:36 PM EST [facility] STRUCTURE OF LEFT ILIAC CREST / Unknown 06/05/2024 2:22 PM EST 06/05/2024 3:08 PM EST STRUCTURE OF LEFT ILIAC CREST / Unknown 06/05/2024 2:22 PM EST 06/05/2024 3:08 PM EST STRUCTURE OF LEFT ILIAC CREST / Unknown 06/05/2024 2:22 PM EST 06/05/2024 3:08 PM EST Markel Borjas MD PATHOLOGY/CYTOLOGY ORDERABLES [facility] [place] [address] * DH HemeSeq (Bone Marrow) (06/05/2024 2:22 PM EST) Pathologist [facility] NGS Report Status Normal 06/13/2024 10:21 AM EST [facility] Bone Marrow Non Blood Collection / Unknown 06/05/2024 2:22 PM EST 06/05/2024 3:07 PM EST Georges Boucher MD MOLECULAR ORDERABLES [facility] [place] [address] * Immunophenotyping Flow Cytometry (06/05/2024 2:22 PM EST) Pathologist [facility] Final Diagnosis - No monotypic B-cell population, no monotypic plasma cell population, no phenotypically abnormal T-cell population or increase in blasts is detected. 06/06/2024 2:[address] [facility] Signing Pathologist This result has been reviewed by Georges Boucher MD on 06/06/24 at 2:08 PM. 06/06/2024 2:[address] [facility] Interpretation CD19+ B-cells show a [...] significant blast populations identified. 06/06/2024 2:[address] [facility] Lymphocyte % 4.7 % 06/06/2024 2:[address] [facility] Monocyte % 3.0 % 06/06/2024 2:[address] [facility] Granulocyte % 76.0 % 06/06/2024 2:[address] [facility] CD45 DIM % 0.9 % 06/06/2024 2:[address] [facility] CD38 Bright/CD138+ 0.2 % 06/06/2024 2:[address] [facility] CD3+ % 70.0 % 06/06/2024 2:[address] [facility] CD19+ % 17.0 % 06/06/2024 2:[address] [facility] CD56+ % 12.0 % 06/06/2024 2:[address] [facility] B-Cell:T-Cell Ratio 0.2 06/06/2024 2:[address] [facility] Roebling:Lambda Ratio 1.8 06/06/2024 2:08 PM EST [facility] CD4:CD8 Ratio 1.6 06/06/2024 2:[address] [facility] Specimen Processing Cells for immunophenotypic analysis were derived from bone marrow. The following markers were assessed: CD2, CD3, CD4, CD5, CD7, CD8, CD10, CD19, CD20, CD38, CD45, CD56, CD138, kappa light chain, (c)kappa light chain, lambda light chain, (c)lambda light chain,CD13, CD14, CD34, CD45, CD117, and HLA-DR. 06/06/2024 2:[address] [facility] Disclaimer Flow analysis is an ancillary study. A definite diagnosis requires correlation with the morphologic features of this process and if necessary, correlation with other ancillary studies like immunohistochemist ry, enzyme cytochemistry and/or cyto/molecular genetics. This test was developed and its performance characteristics determined by the Clinical Flow Cytometry Laboratory at [facility]. It has not been cleared or approved [...] complexity clinical laboratory testing. 06/06/2024 2:[address] [facility] Bone Marrow Non Blood Collection / Unknown 06/05/2024 2:22 PM EST 06/05/2024 3:07 PM EST Georges Boucher MD HEMATOLOGY ORDERABLE S [facility] [place] [address] * Myelodysplastic Syndrome (MDS) FISH Panel (06/05/2024 2:22 PM EST) Specimen Condition adequate 06/08/2024 11:23 PM EST [facility] Indication for Study Anemia, in patient with presumed hx of benign neutropenia 06/08/2024 11:[address] [facility] FISH Panel Summary NEGATIVE for all FISH Panel markers 06/08/2024 11:[address] [facility] FISH Results 5q deletion, monosomy 5, 7q deletion, monosomy 7, trisomy 8, and 20q deletion NOT DETECTED. 06/08/2024 11:[address] [facility] ISCN Nomenclature nuc josselin(D5S23,EGR1)x2[ 200],(D7Z1,U5H443) x2[200],(D8Z2,D20S 108)x2[200] 06/08/2024 11:[address] [facility] Culture Type Direct [place] 06/08/20 11:[address] [facility] FISH Method Interphase 06/08/2024 11:[address] [facility] Interpretation Interphase FISH analysis using [...] analysis using probes for CEP7/D7Z1/7p11.1q1 1.1 and F1G631/7q31 loci ([employer] shows 1.5% and 0% of 200 cells with 7q signal deletion (7q-) and chromosome 7 signal loss (monosomy 7) patterns, respectively. These are within acceptable reference limits (7q deletion: 0-6.3%; monosomy 7: 0-4.4%). Thus, there is no evidence for 7q deletion and monosomy 7. Interphase FISH analysis using probes for CEP8/D8Z2/8p11.1q1 1.1 and V42T479/20q12 loci ([employer] shows 0% and 2.5% of 200 cells with a chromosome 8 signal gain and 20q signal deletion patterns, respectively. These are within acceptable reference limits (trisomy 8: 0-5.1%; 20q deletion: 0-6.3%). Thus, there is no evidence for trisomy 8 and 20q deletion. Correlation with clinical and pathological studies is suggested. 06/08/2024 11:[address] [facility] Technical Methods FISH is performed [...] The FISH probes are directly-labeled by the automatic stacker ([employer] or [employer]) with either a spectrum orange, green, or aqua fluorochrome. Cells are stained with DAPI ([employer]), visualized through fluorescence microscopy, and images captured on the CytoVision software ([employer]). Results are reported based on an International System for Human Cytogenomic Nomenclature. 06/08/2024 11:[address] [facility] Limitations & Disclaimers The FISH test was developed and its performance characteristics were determined by the [facility] ([facility]) Cytogenetics Laboratory as required by The Clinical [...] verified the test's accuracy and precision. The [facility] Cytogenetics Laboratory is certified under the CLIA'88 as qualified to perform high complexity clinical laboratory testing. Chromosome alterations outside the regions complementary to these DNA FISH probes will not be detected. 06/08/2024 11:[address] [facility] Sign-out by Professional component performed by Lizette Bullock, Ph.D., [facility], [address], [place], [place] (CLIA #: [id number]). 06/08/2024 11:[address] [facility] Bone Marrow Non Blood Collection / Unknown 06/05/2024 2:22 PM EST 06/05/2024 3:07 PM EST Georges Boucher MD MOLECULAR ORDERABLES [facility] [place] [address] * (ABNORMAL) CBC (with Diff) (06/05/2024 1:45 PM EST) Only the most recent of2 resultswithin the time period is included. White Blood Cell 3.06(L) 4.00 - 9.50 x10(3)/mc L 06/05/2024 2:38 PM EST [facility] Red Blood Cell 3.35(L) 4.00 - 5.21 x10(6)/mc L 06/05/2024 2:38 PM EST [facility] Hemoglobin 11.0(L) 11.7 - 15.5 g/dL 06/05/2024 2:38 PM EST [facility] Hematocrit 33.4(L) 35.7 - 45.8 % 06/05/2024 2:38 PM EST [facility] Mean Cell Volume 99.7(H) 82.6 - 94.4 fL 06/05/2024 2:38 PM EST [facility] Mean Cell Hemoglobin 32.8(H) 27.1 - 32.0 pg 06/05/2024 2:38 PM EST [facility] Mean Cell Hemoglobin Concentration 32.9 31.7 - 35.0 g/dL 06/05/2024 2:38 PM EST [facility] Platelet 151 145 - 357 x10(3)/mc L 06/05/2024 2:38 PM EST [facility] Mean Platelet Volume 8.9 7.6 - 12.9 fL 06/05/2024 2:[address] [facility] RDW Standard Deviation 44.3 37.0 - 46.0 fL 06/05/2024 2:[address] [facility] RDW coefficient of variation 12.0 11.5 - 14.1 % 06/05/2024 2:[address] [facility] NRBC% auto 0.0 % 06/05/2024 2:[address] [facility] NRBC Absolute <0.01 <0.01 x10(3)/mc L 06/05/2024 2:[address] [facility] Neutrophil % 62.8 % 06/05/2024 2:[address] [facility] Neutrophil Absolute (ANC) - Automated 1.92 1.70 - 6.10 x10(3)/mc L 06/05/2024 2:[address] [facility] Lymph % 20.9 % 06/05/2024 2:[address] [facility] Lymph Absolute 0.64(L) 0.90 - 3.20 x10(3)/mc L 06/05/2024 2:[address] [facility] Monocyte % 15.0 % 06/05/2024 2:[address] [facility] Monocyte Absolute 0.46 0.30 - 0.90 x10(3)/mc L 06/05/2024 2:[address] [facility] Eos % 0.3 % 06/05/2024 2:[address] [facility] Eos Absolute <0.04 0.00 - 0.40 x10(3)/mc L 06/05/2024 2:[address] [facility] Basophil % 0.7 % 06/05/2024 2:[address] [facility] Baso Absolute <0.04 0.00 - 0.10 x10(3)/mc L 06/05/2024 2:[address] [facility] Immature Gran % 0.3 % 2:[address] [facility] Immature Gran Absolute <0.04 0.00 - 0.04 x10(3)/mc L 06/05/2024 2:[address] [facility] Blood VENOUS BLOOD SPECIMEN / Unknown Venipuncture / Unknown 06/05/2024 1:45 PM EST 06/05/2024 1:59 PM EST Markel Borjas MD HEMATOLOGY ORDERAB LES [facility] [place] [address] * DXA Central Spine, Hip, and/or Whole Body (Generic) (05/18/2024 11:21 AM EDT) PT CLASS O RAD ADMITDTTM [id number] RAD PT RAD INFO [id number]^Dave ^Magdalena RAD EXAM DESC XDXAC^BD Bone Density [...] questions please contact the health personal care service provider that requested your imaging first. ? [...] have questions please contactthe health personal care service provider that requested your imaging first. Magdalena Acosta MD IMG DEXA ORDERABLES * MAMMO SCREENING CAD BILATERAL (CH) (05/18/2024 11:21 AM EDT) PT CLASS O RAD ADMITDTTM [id number] RAD PT RAD INFO [id number]^Dave ^Magdalena RAD EXAM DESC MADDSCCH^MG Mammo Digital [...] questions please contact the health personal care service provider that requested your imaging first. ? [address] ??[address] Narrative 05/18/2024 3:05 PM EDT EXAMINATION: MG [...] have questions please contactthe health personal care service provider that [place] [address] Magdalena Acosta MD PACS IMAGES * Reticulocyte Count (05/12/2024 8:56 AM EDT) Reticulocyte % 1.20 0.70 - 2.50 % 05/12/2024 9:32 AM EDT [facility] Retic Abs # 0.0397 0.0200 - 0.1100 x10(6)/mcL 05/12/2024 9:32 AM EDT [facility] Immature Retic% 8.1 0.5 - 13.8 % 05/12/2024 9:32 AM EDT [facility] Reticulated Hgb 35.2 29.8 - 39.4 pg 05/12/2024 9:32 AM EDT [facility] Blood VENOUS BLOOD SPECIMEN / Unknown Venipuncture / Unknown 05/12/2024 8:56 AM EDT 05/12/2024 8:56 AM EDT Tova Russell OYSTER [employer] HEMATOLOGY ORDERABL ES [facility] [place] [address] * (ABNORMAL) Comprehensive metabolic panel Non-fasting (05/12/2024 8:56 AM EDT) Glucose 86 65 - 199 mg/dL 05/12/2024 11:36 AM EDT [facility] Comment:Glucose Concentratio n >=200 mg/dL plus symptoms is consistent with Diabetes Mellitus. Blood Urea Nitrogen 20(H) 8 - 18 mg/dL 05/12/2024 11:36 AM [facility] Creatinine 0.88 0.70 - 1.20 mg/dL 05/12/2024 11:36 AM EDT [facility] Sodium 145 135 - 145 mMol/L 05/12/2024 11:36 AM [facility] Potassium 4.6 3.5 - 5.0 mMol/L 05/12/2024 11:36 AM [facility] Chloride 109(H) 98 - 107 mMol/L 05/12/2024 11:36 AM [facility] Carbon Dioxide 21(L) 22 - 31 mMol/L 05/12/2024 11:36 AM [facility] Anion Gap 15 5 - 15 mMol/L 05/12/2024 11:36 AM [facility] Comment:Not Calculated. Calcium 9.9 8.5 - 10.5 mg/dL 05/12/2024 11:36 AM EDT [facility] Protein, Total 7.3 6.1 - 8.0 g/dL 05/12/2024 11:[facility] Albumin 4.5 3.2 - 5.2 g/dL 05/12/2024 11:36 AM EDT [facility] Aspartate Aminotransferase 24 <=30 unit/L 05/12/2024 11:36 AM EDT [facility] Alanine Aminotransferase 14 0 - 30 unit/L 05/12/2024 11:36 AM EDT [facility] Alkaline Phosphatase 98 35 - 105 unit/L 05/12/2024 11:36 AM EDT [facility] Bilirubin, Total 0.2 <=1.3 mg/dL 05/12/2024 11:36 AM EDT [facility] Est Glomerular Filtration Rate - Female 72 mL/min/1. 73 m?? 05/12/2024 11:36 AM EDT [facility] Comment: This patient's estimated GFR [...] Fasting Status No 05/12/2024 11:36 AM EDT [facility] Blood VENOUS BLOOD SPECIMEN / Unknown Venipuncture / Unknown 05/12/2024 8:56 AM EDT 05/12/2024 8:56 AM EDT Tova Russell APRN CHEMISTRY ORDERABLE S [facility] [place] [address] from Last 3 Months Advance Directives * [...] capacity to make decision: Yes Care Teams English As A Second Language Instructor Relationship Specialty Start Date End Date Magdalena Acosta MD [address] [place] [address] PCP - General Family Medicine 02/05/23
--- OUTSIDE RECORDS SUMMARY | 2024-06-13 14:10 | XMS_ITS | Encounter Summary ---
Author Organization [facility] Address [facility] [place] [address] Care Team Providers Care Nut Culler Name Role Phone Magdalena Acosta MD Primary Care Provider [phone] Reason for Visit * Reason Comments Coronary Artery Disease Hypertension Aortic Stenosis Encounter Details Date Type Department Care Team (Latest Contact Info) Description 07/20/2023 4:40 PM EST TH Visit (TeleHealth) Cardiology at [address] [address] Jay Maza PA [facility] [place] [address] HFrEF (heart failure with reduced ejection fraction); [...] Maza PA - 07/20/2023 4:40 PM EST [facility] Interventional Cardiology CARDIOLOGY [...] lieu of an in person office visit. Refueling Ramp Attendant: Antelmo Sharma MD ([facility] Cards) Maria Luz Meija MD ([facility] / [facility] cards) Problem List: [...] fraction I35.0 Mild coronary artery disease by [facility] 11/09/2022 I25.10 Heart failure with [...] notable for coronary artery protection given low qjjsh-oe-yaluniil distance. There was no obstruction post Valve deployment, but the stent could not be removed safely, so it was deployed. 4.0 mm x 30mm in left main. She was loaded on brilinta aka ticagrelor. Immediately post valve deployment, chest compressions to circulate central epinephrine which was administered given her hypotension, low LVEF, and low cardiac reserve. Next, the patient was transferred to [facility] for pressor and inotropic support. Pressors weaned overnight. Cardiac indices by thermodilution remained greater than 3 with continued Milrinone 0.125 mcg/kg/min. EKG the next day with NSR with stable DC/QRS intervals. Hemoglobin 7.8 today from 8.5, likely [...] arms and wrists. Successful right transfemoral TAVR Nmilm-qk-Puvrg with a 23 mm Lai 3 THV. [...] leads Confirmed by MD Harshil, Haris Bell ([id number]) on 05/10/2023 8:11:46 AM Cardiac Cath 11/09/2022 [...] in chart review and direct patient contact. [id number] 0-5min 6156ZCZ4 6-10min 9237YLW8 11-15min 7764VDQ3 16-20min x 2276IBL8 21-30min 3719HQE1 31-40min 1051LZB9 40+ min Jay Maza PA-C Interventional Cardiology [facility] Pager [phone] documented in this encounter Plan of Treatment Upcoming Encounters Date Type Department Care Team (Late st Contact Info) Description 06/23/2024 2:00 PM EST Office Visit Hemat[place] [address] Markel Borjas MD [facility] [address] [place] [address] 11/02/2024 12:00 PM EDT [place]oint[place] [address] 11/02/2024 1:00 PM EDT Office [place] [address] Magdalena Peralta MD [facility] [place] [address] 03/01/2025 4:15 PM EDT Office Visit Dermatology at [place] [address] [facility] [place] [address] Marek Bonilla MD [address] [facility] [place] [address] documented as of this encounter Visit Diagnoses Diagnosis HFrEF (heart failure with reduced ejection fraction) Hypertension, unspecified type Aortic valve stenosis, etiology of cardiac valve disease unspecified documented in this encounter Care Teams Nut Culler Relationship Specialty Start Date End Date Magdalena Acosta MD [address] [place] [address] PCP - General Family Medicine 02/05/23 documented as of this encounter
--- OUTSIDE RECORDS SUMMARY | 2024-06-13 14:10 | XMS_ITS | Encounter Summary ---
Author Organization [facility] Address [facility] [place] [address] Care Team Providers Care Electrical Continuity Inspector Name Role Phone Magdalena Acosta MD Primary Care Provider [phone] Encounter Details Date Type Department Care Team [...] Visit Hematology [place] [address] Markel Borjas MD [facility] [address] [place] [address] 11/02/2024 12:00 PM EDT Appointment [place] [address] 11/02/2024 1:00 PM EDT Office [place] [address] Magdalena Peralta MD [facility] [place] [address] 03/01/2025 4:15 PM EDT Office Visit Dermatology at [place] [address] [place] [address] Marek Bonilla MD [address] [place] [address] documented as of this encounter Visit Diagnoses Not on filedocumented in this encounter Care Teams Electrical Continuity Inspector Relationship Specialty Start Date End Date Magdalena Acosta MD [address] [place] [address] PCP - General Family Medicine 02/05/23 documented as of this encounter
--- OUTSIDE RECORDS SUMMARY | 2024-06-13 14:10 | XMS_ITS | Encounter Summary ---
Author Organization [facility] [place] [address] Care Team Providers Care Hand Lacer Name Role Phone Magdalena Acosta MD Primary Care Provider [phone] Reason for Referral * Diagnostic Test (Routine) - Closed Specialty Diagnoses / Procedures Referred By Contac t Referred To Contact Cardiology Diagnoses S/P TAVR (transcatheter aortic valve replacement) Procedures Echocardiogram Transthoracic Vinod Juárez PA [facility] [place] [address] [facility] [place] [address] Referral ID Status Reason Start Date Expiration Date V isits Requested Visits Authorized [id number] Closed Specialty Service Requested 05/22/2023 05/21/2024 1 1 Reason for Visit * Diagnostic Test (Routine) - Closed Specialty Diagnoses / Procedures Referred By Contac t Referred To Contact Cardiology Diagnoses S/P TAVR (transcatheter aortic valve replacement) Procedures Echocardiogram Transthoracic Vinod Juárez PA [facility] [place] [address] [facility] [place] [address] Referral ID Status Reason Start Date Expiration Date V isits Requested Visits Authorized [id number] Closed Specialty Service Requested 05/22/2023 05/21/2024 1 1 Encounter Details Date Type Department Care Team (Latest Contact Info) Description 07/08/2023 10:19 AM EST - 07/08/2023 11:59 PM EST Hospital Encounter Non-Invasive [place] [address] Alirio Esparza MD S/P TAVR (transcatheter aortic [...] Tablet Take 1 tablet by mouth daily. clopidogreL (Plavix) 75 mg [...] EST Office Visit [place] [address] Markel Borjas MD [facility] [address] HEMATOLOGY [place] [address] 11/02/2024 12:00 PM EDT [place] [address] 11/02/2024 1:00 PM EDT [place] [address] Magdalena Peralta MD [facility] [place] [address] 03/01/2025 4:15 PM EDT Office Visit Dermatology at [place] [address] [place] [address] Marek Bonilla MD [address], [place] [address] documented as of this encounter Procedures Procedure [...] EST Narrative 07/08/2023 12:26 PM EST 1 [place] [address] ? Echocardiogram Report Name: KIRSTIE, ONESIMO M ?Study Date: 07/08/2023 10:31 AMBP: 118/60 mmHg ? Patient Location: 4A : 1955 ? Height: 155 cm ? Account: [id number] Age: 67 yrs ? Weight: 74 kg Gender: Female ?BSA: 1.7 m2 Ordering Physician: ALIRIO ESPARZA Referring Physician: VINOD JUÁREZ Performed By: Felicia Norris RDCS Reason For Study: S/P TAVR Exam Location: [facility]. Interpretation Summary Left ventricular [...] no significant change (post-procedure). Procedure Limited - 88608. Doppler - 27004. Color Doppler - 10409. Satisfactory quality. This study is limited because [...] Note Lee Kincaid MD - 07/08/2023 1 [place] [address] Echocardiogram Report Name: ONESIMO THACKER Study Date: 0:31 AMBP: 118/60 mmHg Patient Location: : 1955 Height: 155 cm Account: [id number] Age: 67 yrs Weight: 74 kg Gender: Female BSA: 1.7 m2 Ordering Physician: ALIRIO ESPARZA Referring Physician: VINOD JUÁREZ Performed By: Felicia Norris RDCS Reason For Study: S/P TAVR Exam Location: [facility]. Interpretation Summary Left ventricular [...] is nosignificant change (post-procedure). Procedure Limited - 62586. Doppler - 55701. Color Doppler - 75147. Satisfactoryquality. This study is limited because of [...] replacement) documented in this encounter Care Teams Hand Lacer Relationship Specialty Start Date End Date Magdalena Acosta MD [address] [place] [address] PCP - General Family Medicine 02/05/23 documented as of this encounter
--- OUTSIDE RECORDS SUMMARY | 2024-06-13 14:10 | XMS_ITS | Encounter Summary ---
[place] [address] Care Team Providers Care Operations Support Coordinator Name Role Phone Magdalena Acosta MD Primary Care Provider [phone] Reason for Visit * Reason Onset Date Comments Pre Procedure Call 03/01/2024 DAPT hold for EGD and colo? Encounter Details Date Type Department Care Team (Late st Contact Info) Description 03/01/2024 Telephone Cardiology at [address] [phone] Cynthia Monsalve RN Pre Procedure Call (DAPT [...] safe. Jay Message above left with Yenifer (radiologic technology instructor), who would be leaving this note in patient's chart for providers to schedule patient. No further questions or needs at this time. This nurse stated, note will be placed regarding this call in our chart for patient. Kezia Whitney RN, BSN Ambulatory Cardiology Clinic, [facility] [phone] * Telephone Encounter - Cynthia Monsalve RN [...] EST Office Visit Hematology [place] [address] Markel Borjas MD [facility] DR [place] [address] 11/02/2024 12:00 PM EDT Appointment [place] [address] 11/02/2024 1:00 PM EDT Office [place] [address] Magdalena Peralta MD [facility] [place] [address] 03/01/2025 4:15 PM EDT Office Visit Dermatology at [address] [place] [address] Marek Bonilla MD [address] [facility] [facility] [address] [place] [address] documented as of this encounter Visit Diagnoses Not on filedocumented in this encounter Care Teams Operations Support Coordinator Relationship Specialty Start Date End Date Magdalena Acosta MD [address] [place] [address] PCP - General Family Medicine 02/05/23 documented as of this encounter
--- OUTSIDE RECORDS SUMMARY | 2024-06-13 14:10 | XMS_ITS | Encounter Summary ---
Author Organization [facility] Address [facility] Erika [facility] [place] [address] Care Team Providers Care Section Crews Activities Clerk Name Role Phone Magdalena Acosta MD Primary Care Provider [phone] Encounter Details Date Type Department Care Team (Latest Contact Info) Description 07/08/2023 12:35 PM EST Laboratory Appointment Lab [address] [place] [address] S/P TAVR (transcatheter aortic valve [...] EST Office Visit Hematology [place] [address] Markel Borjas MD [facility] DR HEMATOLOGY [place] [address] 11/02/2024 12:00 PM EDT Appointment [place] [address] 11/02/2024 1:00 PM EDT Office [place] [address] Magdalena Peralta MD [facility] [place] [address] 03/01/2025 4:15 PM EDT Office Visit Dermatology at [place] [address] [facility] [place] [address] Marek Bonilla MD [address] [address] documented as of this encounter Procedures Procedure [...] 11:56 AM EST) Neutrophil % 73.2 % [facility] Neutrophil Absolute 3.40 1.70 - 6.10 x10(3)/mc L [facility] Lymph % 16.1 % [facility] Lymphocytes Abs 0.8(L) 0.9 - 3.2 x10(3)/mc L [facility] Monocyte % 9.7 % [facility] Monocyte Abs 0.4 0.3 - 0.9 x10(3)/mc L [facility] Eos % 0.4 % [facility] Eosinophils Abs 0.0 0.0 - 0.4 x10(3)/mc L [facility] Basophil % 0.4 % [facility] Baso Absolute 0.0 0.0 - 0.1 x10(3)/mc L [facility] Immature Gran % 0.20 % [facility] Comment: Immature granulocytes(IG's)percentage and absolute count will include metamyelocytes, myelocytes, and promyelocytes. Blood smears from CBCs yielding IG's will be scanned manually for concordance. If this scan disagrees with the automated IG or if promyelocytes are noted, a manual differential will be performed. Immature Gran Absolute 0.01 0.00 - 0.04 x10(3)/ L [facility] Blood 07/08/2023 11:5 6 AM EST 07/08/2023 12:02 PM EST Narrative Resulting Agency Comment Spec In Lab [facility] ORDERABLE S Performing Organization Address City/State/[facility] Co de Phone Number [facility] [place] [address] * (ABNORMAL) Hemogram (07/08/2023 11:56 AM EST) White Blood Cell 4.6 4.0 - 9.5 x10(3)/ L [facility] Red Blood Cell 3.34(L) 4.00 - 5.21 x10(6)/mc L [facility] Hemoglobin 11.0(L) 11.7 - 15.5 g/dL [facility] Hematocrit 33.2(L) 35.7 - 45.8 % [facility] Mean Cell Volume 99.4(H) 82.6 - 94.4 fL [facility] Mean Cell Hemoglobin 32.9(H) 27.1 - 32.0 pg [facility] Mean Cell Hemoglobin Concentration 33.1 31.7 - 35.0 g/dL [facility] Platelet 166 145 - 357 x10(3)/mc L [facility] RDW Standard Deviation 47.1(H) 37.0 - 46.0 fL [facility] RDW coefficient of variation 13.0 11.5 - 14.1 % [facility] Mean Platelet Volume 9.0 7.6 - 12.9 fL [facility] NRBC% auto 0.0 % [facility] NRBC Absolute 0.000 0.000 - 0.000 x10(3)/mc L [facility] Blood 07/08/2023 11:5 6 AM EST 07/08/2023 12:02 PM EST Narrative Resulting Agency Comment Spec In Lab [facility] ORDERABLE S [facility] [place] [address] * (ABNORMAL) Comprehensive metabolic panel (non-fasting) (07/08/2023 11:56 AM EST) Glucose 93 65 - 199 mg/dL [facility] Comment:Diabetes: >=200 mg/d L plus symptoms Blood Urea Nitrogen 19(H) 8 - 18 mg/dL [facility] Creatinine 0.81 0.70 - 1.20 mg/dL [facility] Sodium 142 135 - 145 mmol/L [facility] Potassium 3.8 3.5 - 5.0 mmol/L [facility] Comment: Please note: ??Patients with WBC >100,000 may have falsely elevated Potassium levels. ??For accurate Potassium quantification in these patients send serum separator tube (gold top) for subsequent determinations. ??Contact the Clinical Chemistry Laboratory if there are any questions. Chloride 104 98 - 107 mmol/L [facility] Carbon Dioxide 26 22 - 31 mmol/L [facility] Anion Gap 12 5 - 15 mmol/L [facility] Calcium 10.2 8.5 - 10.5 mg/dL [facility] Protein, Total 7.4 6.1 - 8.0 g/dL [facility] Albumin 4.1 3.2 - 5.2 g/dL [facility] Aspartate Aminotransferase 24 0 - 30 unit/L [facility] Alanine Aminotransferase 12 0 - 30 unit/L [facility] Alkaline Phosphatase 93 35 - 105 unit/L [facility] Bilirubin, Total 0.3 0.2 - 1.3 mg/dL [facility] Est Glomerular Filtration Rate 80 >=60 mL/min/1. 73 m?? [facility] Comment: This patient's estimated GFR [...] City/State/[facility] Co de Phone Number [facility] [place] [address] documented in this encounter Visit Diagnoses Diagnosis S/P TAVR (transcatheter aortic valve replacement) Severe aortic stenosis Aortic valve disorders documented in this encounter Care Teams Section Crews Activities Clerk Relationship Specialty Start Date End Date Magdalena Acosta MD [address] [place] [address] PCP - General Family Medicine 02/05/23 documented as of this encounter
--- OUTSIDE RECORDS SUMMARY | 2024-06-13 14:10 | XMS_ITS | Encounter Summary ---
Author Organization [facility] Address [facility] [place] [address] Care Team Providers Care Paste Up Copy Camera Operator Name Role Phone Magdalena Acosta MD Primary Care Provider [phone] Encounter Details Date Type Department Care Team (Late st Contact Info) Description 07/29/2023 11:00 AM EST Office [place] [address] Magdalena Peralta MD [facility] [place] [address] Mixed connective tissue disease Social History Tobacco [...] 1:5120 speckled; VIC negative; Myositis panel with L D RN ab 149.1 (positive); Anti U1RNP IgG 119; [...] Viramontes. Magdalena Peralta MD Rheumatology Fellow Pager: [phone] * Kia Viramontes DO - 07/29/2023 11:00 AM EST ATTENDING ADDENDUM The patient's history was reviewed, and I interviewed and examined the patient with Dr. Peralta I agree with her summary, findings, and plan. documented in this encounter Plan of Treatment Upcoming Encounters Date Type Department Care Team (Late st Contact Info) Description 06/23/2024 2:00 PM EST Office Visit Hematology [place] [address] Markel Borjas MD [facility] DR HEMATOLOGY [place] [address] 11/02/2024 12:00 PM EDT Appointment [place] [address] 11/02/2024 1:00 PM EDT Office [place] [address] Magdalena Peralta MD [facility] [place] [address] 03/01/2025 4:15 PM EDT Office Visit Dermatology at [place] [address] [facility] [place] [address] Marek Bonilla MD [address] [place] [address] documented as of this encounter Results * [...] PFT FEV1/FVC Pre-BD Z-Score 0 COMPAS PFT WXI46-61 Actual Pre-BD 2.41 % COMPAS PFT STZ81-00 Predicted 1.8 % COMPAS PFT YAD10-65 Pre-BD % of Predicted 134 % COMPAS PFT FCD13-89 Pre-BD Z-Score 0.81 COMPAS PFT DLCO Hb [...] tissue documented in this encounter Care Teams Paste Up Copy Camera Operator Relationship Specialty Start Date End Date Magdalena Acosta MD [address] [place] [address] PCP - General Family Medicine 02/05/23 documented as of this encounter
--- OUTSIDE RECORDS SUMMARY | 2024-06-13 14:10 | XMS_ITS | Encounter Summary ---
Author Organization [facility] [place] [address] Care Team Providers Care Mc Kay Stitcher Name Role Phone Magdalena Acosta MD Primary Care Provider [phone] Reason for Visit * Reason Comments Aortic Stenosis Coronary Artery Disease Hypertension Encounter Details Date Type Department Care Team (Latest Contact Info) Description 11/16/2023 11:40 AM EDT TH Visit (TeleHealth) Cardiology at [address] [address] Jay Maza PA [facility] [place] [address] Aortic valve stenosis, etiology of cardiac valve disease unspecified; Coronary artery disease, unspecified vessel or lesion type, unspecified whether angina present, unspecified whether [place] or transplanted heart Social History Tobacco Use Types Packs/Day Years Used Date Smoking Tobacco: Never Smokeless Tobacco: Never Alcohol Use Standard Drinks/Week Comments No 0 (1 standard drink = 0.6 oz pur e alcohol) none [facility] Inpatient Questions Answer Date Recorded [...] the original note were not included. [facility] Interventional Cardiology CARDIOLOGY TELE VISIT NOTE 11/16/23 Patient: Purnima Thacker Prior to the initiation of our discussion, the risks and benefits of tele health visits were discussed, and the patient consented verbally to this being a virtual telehealth visit in lieu of an in person office visit. CARDIOLOGISTS: Antelmo Sharma MD ([facility] Cards) Maria Luz Mejia MD ([facility] Cards - [facility]) Problem List: Aortic valve [...] notable for coronary artery protection given low wiecf-wo-htsqtdgd distance. There was no obstruction post Valve [...] had a very reassuring recent echo in [facility], in scanned docs. LVEF [...] leads Confirmed by MD Harshil, Haris Bell ([id number]) on 05/10/2023 8:11:46 AM Cardiac Cath 11/09/2022 [...] in one year. EKATERINA Thompson Time spent: 1245KWQ3 0-5min 6771JED6 6-10min 3004OYD3 11-15min x 1057CVA2 16-20min 7912PBC9 21-30min 7363ZTA5 31-40min 7301DDH4 40+ min Jay Maza PA-C Interventional Cardiology [facility] V[facility] Center [facility] Pager [phone] documented in this encounter Plan of Treatment Upcoming Encounters Date Type Department Care Team (Late st Contact Info) Description 06/23/2024 2:00 PM EST Office Visit Hematology [place] [address] Markel Borjas MD [facility] [address] [place] [address] 11/02/2024 12:00 PM EDT Appointment Pulmonology at [place] [address] 11/02/2024 1:00 PM EDT Office Visit Rheumatology at [address] Magdalena Peralta MD [facility] [place] [address] 03/01/2025 4:15 PM EDT Office Visit Dermatology at [place] [address] [place] [address] Marek Bonilla MD [address] [place] [address] documented as of this encounter Visit Diagnoses Diagnosis Aortic valve stenosis, etiology of cardiac valve disease unspecified Coronary artery disease, unspecified vessel or lesion type, unspecified whether angina present, unspecified whether [place] or transplanted heart documented in this encounter Care Teams Mc Kay Stitcher Relationship Specialty Start Date End Date Magdalena Acosta MD [address] [place] [address] PCP - General Family Medicine 02/05/23 documented as of this encounter
--- OUTSIDE RECORDS SUMMARY | 2024-06-13 14:10 | XMS_ITS | Encounter Summary ---
Author Organization Count Includes [facility] Address [facility] [place] [address] Care Team Providers Care Cad Detailer Name Role Phone Magdalena Acosta MD Primary Care Provider [phone] Encounter Details Date Type Department Care Team [...] Office Visit Hematology [place] [address] Markel Borjas MD [facility] DR HEMATOLOGY [place] [address] 11/02/2024 12:00 PM EDT Appointment [place] [address] 11/02/2024 1:00 PM EDT Office [place] [address] Magdalena Peralta MD [facility] [place] [address] 03/01/2025 4:15 PM EDT Office Visit Dermatology at [place] [address] [facility] [place] [address] Marek Bonilla MD [address] [place] [address] documented as of this encounter Visit Diagnoses Not on filedocumented in this encounter Care Teams Cad Detailer Relationship Specialty Start Date End Date Magdalena Acosta MD [address] [place] [address] PCP - General Family Medicine 02/05/23 documented as of this encounter
--- OUTSIDE RECORDS SUMMARY | 2024-06-13 14:10 | XMS_ITS | Encounter Summary ---
[place] [address] Care Team Providers Care Compensation Advisor Name Role Phone Magdalena Acosta MD Primary Care Provider [phone] Reason for Visit * Reason Comments Annual Exam Encounter Details Date Type Department Care Team (Late st Contact Info) Description 02/22/2024 4:15 PM EDT Office Visit Dermatology at [address] [phone] Marek Bonilla MD [address] [facility], [facility] A DERMATOLOGY [place], [place] [phone] Seborrheic keratosis; Rosacea; Nevus Social History Tobacco [...] cutaneous and ocular 3. Previously told by administrative technician that she had corneal tears from [...] Visit Hematology [place] [address] Markel Borjas MD [facility] [address] [place] [address] 11/02/2024 12:00 PM EDT Appointment [place] [address] 11/02/2024 1:00 PM EDT Office [place] [address] Magdalena Peralta MD [facility] [address] 03/01/2025 4:15 PM EDT Office Visit Dermatology at [address] [place] [address] Marek Bonilla MD [address] [facility] [address], [place] [address] documented as of this encounter Visit Diagnoses Diagnosis Seborrheic keratosis Other seborrheic keratosis Rosacea Nevus Benign neoplasm of skin, site unspecified documented in this encounter Care Teams Compensation Advisor Relationship Specialty Start Date End Date Magdalena Acosta MD [address] [place] [address] PCP - General Family Medicine 02/05/23 documented as of this encounter
--- OUTSIDE RECORDS SUMMARY | 2024-06-13 14:10 | XMS_ITS | Encounter Summary ---
Author Organization [facility] Address [facility] [place] [address] Care Team Providers Care Mannequin Coloring Artist Name Role Phone Magdalena Acosta MD Primary Care Provider [phone] Encounter Details Date Type Department Care Team [...] EST Office Visit Hematology [place] [address] Markel Borjas MD [facility] [address] [place] [address] 11/02/2024 12:00 PM EDT Appointment [place] [address] 11/02/2024 1:00 PM EDT Office [place] [address] Magdalena Peralta MD [facility] [place] [address] 03/01/2025 4:15 PM EDT Office Visit Dermatology at [place] [address] [facility] [place] [address] Marek Bonilla MD [address] [facility] [facility] [address], [place] [address] documented as of this encounter Visit Diagnoses Not on filedocumented in this encounter Care Teams Mannequin Coloring Artist Relationship Specialty Start Date End Date Magdalena Acosta MD [address] [place] [address] PCP - General Family Medicine 02/05/23 documented as of this encounter
--- OUTSIDE RECORDS SUMMARY | 2024-06-13 14:10 | XMS_ITS | Encounter Summary ---
Author Organization [facility] [place] [address] Care Team Providers Care Supervisor Electronics Testing Name Role Phone Magdalena Acosta MD Primary Care Provider [phone] Encounter Details Date Type Department Care Team (Late st Contact Info) Description 07/08/2023 10:15 AM EST Office Visit Cardiology at [address] [phone] Severe aortic stenosis Social History Tobacco Use [...] EST Office Visit [place]ology [place] [address] Markel Borjas MD [facility] DR HEMATOLOGY [place] [address] 11/02/2024 12:00 PM EDT [place] [address] 11/02/2024 1:00 PM EDT Office [place] [address] Magdalena Peralta MD [facility] DR RHEUMATOLOGY DEPT [place], [place] [address] 03/01/2025 4:15 PM EDT Office Visit Dermatology at [place] [address] [facility] [place] [phone] Marek Bonilla MD [address] [facility], [place] [address] documented as of this encounter Procedures Procedure [...] (Bezet) 449 ms MUSE SYSTEM Calculated P [place] 66 degrees MUSE SYSTEM Calculated R [place] 60 degrees MUSE SYSTEM Calculated T [place] 53 degrees MUSE SYSTEM INTERPRETATION Normal sinus rhythm Minimal voltage criteria for LVH, may be normal variant ( Sokolow-Orozco ) ST & T wave abnormality, consider lateral ischemia ??vs. repolarization abnormality from LVH Abnormal ECG When compared with ECG of 13-MAY-2023 09:22, Premature ventricular complexes are no longer Present Minimal criteria for Septal infarct are no longer Present Confirmed by Maxx Best ([id number]) on 07/09/2023 10:07:22 AM MUSE SYSTEM 07/08/2023 10:2 7 AM EST 07/09/2023 10:07 AM EST Brody Kaplan APRN ECG ORDERABLES MUSE SYSTEM documented in this encounter Visit Diagnoses Diagnosis Severe aortic stenosis Aortic valve disorders documented in this encounter Care Teams Supervisor Electronics Testing Relationship Specialty Start Date End Date Magdalena Acosta MD [address] [place] [address] PCP - General Family Medicine 02/05/23 documented as of this encounter
--- OUTSIDE RECORDS SUMMARY | 2024-06-13 14:10 | XMS_ITS | Encounter Summary ---
Author Organization [facility] [place] [address] Care Team Providers Care Conference Planning Manager Name Role Phone Magdalena Acosta MD Primary Care Provider [phone] Encounter Details Date Type Department Care Team (Late st Contact Info) Description 05/27/2023 Refill Cardiology at [address] [phone] Vero Marrero, RN Social History Tobacco Use [...] EDT TC to Nurse Sosa at [facility] to relay response from Jay Maza copied below. Nurse Sosa states they will send a new prescription to patient's preferred pharmacy and call the patient with the medication information. No print prescription sent to update med list. May 27, 2023 Jay Maza PA to [place] 05/27/23 2:44 PM OK to change ticagrelor to Clopidogrel. Now, she should be taking ticagrelor 90mg BID. When she switches, she can take ticagrelor, then the next morning, stop ticagrelor, instead take clopidogrel 300mg once, then after that 75mg once daily. Jay Marrero manager of disaster recovery [facility] at [facility] [phone] * Telephone Encounter - Vero Marrero RN - 05/27/2023 1:46 PM EDT VM received from triage nurse Sosa at [facility] stating patient was seen today [...] more affordable option, if possible. Vero Marrero manager of disaster recovery [facility] [phone] documented in this encounter Plan of Treatment Upcoming Encounters Date Type Department Care Team (Late st Contact Info) Description 06/23/2024 2:00 PM EST Office Visit Hematology and Oncology at [place] [phone] Markel Borjas MD [facility] [place] [address] 11/02/2024 12:00 PM EDT Appointment Pulmonology at [place] [phone] 11/02/2024 1:00 PM EDT Office Visit Rheumatology at [place] [phone] Magdalena Peralta MD [facility] [place] [address] 03/01/2025 4:15 PM EDT Office Visit Dermatology at [place] [address] [place] [phone] Marek Bonilla MD [address], [place] [address] documented as of this encounter Visit Diagnoses Diagnosis Aortic valve stenosis, etiology of cardiac valve disease unspecified documented in this encounter Care Teams Conference Planning Manager Relationship Specialty Start Date End Date Magdalena Acosta MD [address] [place] [address] PCP - General Family Medicine 02/05/23 documented as of this encounter
--- OUTSIDE RECORDS SUMMARY | 2024-06-13 14:10 | XMS_ITS | Encounter Summary ---
[place] [address] Care Team Providers Care Airdox Fitter Name Role Phone Magdalena Acosta MD Primary Care Provider [phone] Encounter Details Date Type Department Care Team (Latest Contact Info) Description 10/05/2023 10:52 AM EST - 10/05/2023 11:59 PM [facility] Encounter [place] [address] Mixed connective tissue disease Discharge Disposition: Home [...] Verio test strips Strip USE DAILY 01/03/2022 [employer] Delica Plus Lancet 33 gauge Misc USE [...] Tablet Take 1 tablet by mouth daily. ticagrelor (Brilinta) 90 mg [...] EST Office Visit Hematology [place] [phone] Markel Borjas MD [facility] DR HEMATOLOGY [place] [address] 11/02/2024 12:00 PM EDT Appointment [place] [address] 11/02/2024 1:00 PM EDT Office Visit [place] [address] Magdalena Peralta MD [facility] [place] [address] 03/01/2025 4:15 PM EDT Office Visit Dermatology at [place] [address] [facility] [place] [phone] Marek Bonilla MD [address] [address], [place] [address] documented as of this encounter Procedures Procedure [...] PFT FEV1/FVC Pre-BD Z-Score 0 COMPAS PFT IHX36-94 Actual Pre-BD 2.41 % COMPAS PFT NYL14-83 Predicted 1.8 % COMPAS PFT FPO09-90 Pre-BD % of Predicted 134 % COMPAS PFT OMQ42-71 Pre-BD Z-Score 0.81 COMPAS PFT DLCO Hb [...] tissue documented in this encounter Care Teams Airdox Fitter Relationship Specialty Start Date End Date Magdalena Acosta MD [address] [place] [address] PCP - General Family Medicine 02/05/23 documented as of this encounter
--- OUTSIDE RECORDS SUMMARY | 2024-06-13 14:10 | XMS_ITS | Encounter Summary ---
Author Organization [facility] Address [facility] [place] [address] Care Team Providers Care Marine Welder Name Role Phone Magdalena Acosta MD Primary Care Provider [phone] Encounter Details Date Type Department Care Team [...] EST Office Visit Hematology [place] [address] Markel Borjas MD [facility] [address] [place] [address] 11/02/2024 12:00 PM EDT Appointment [place] [phone] 11/02/2024 1:00 PM EDT Office [place] [address] Magdalena Peralta MD [facility] [place] [address] 03/01/2025 4:15 PM EDT Office Visit Dermatology at [place] [address] [facility] [address] Marek Bonilla MD [address] [facility] [facility] [address] [address], [place] Katherine [place] [address] documented as of this encounter Visit Diagnoses Not on filedocumented in this encounter Care Teams Marine Welder Relationship Specialty Start Date End Date Magdalena Acosta MD [address] [place] [address] PCP - General Family Medicine 02/05/23 documented as of this encounter
--- OUTSIDE RECORDS SUMMARY | 2024-06-13 14:10 | XMS_ITS | Encounter Summary ---
[place] [address] Care Team Providers Care Armor Reconnaissance Vehicle Crewman Name Role Phone Magdalena Acosta MD Primary Care Provider [phone] Reason for Referral * Consultation (Routine) - Closed Specialty Diagnoses / Procedures Referred By Contac t Referred To Contact Hematology and Oncology Diagnoses Anemia, unspecified type Consuelo Guerrero DO [address] [place] [address] [address] [place] [address] [facility] [address] [place] [address] Referral ID Status Reason Start Date Expiration Date V isits Requested Visits Authorized [id number] Closed Consult, Test & Treat 04/11/2024 04/11/2025 1 1 Encounter Details Date Type Department Care Team (Late st Contact Info) Description 04/11/2024 Transcribe Orders eDH Incoming Referrals [phone] Consuelo Guerrero DO [address] [place] [address] [address] [place] [address] Anemia, unspecified type Social History Tobacco Use Types Packs/Day Years Used Date Smoking Tobacco: Never Smokeless Tobacco: Never Alcohol Use Standard Drinks/Week Comments No 0 (1 standard drink = 0.6 oz pur e alcohol) none [facility] Inpatient Questions Answer Date Recorded Does [...] EST Office Visit Hematology [place] [address] Markel Borjas MD [facility] [address] [place] [address] 11/02/2024 12:00 PM EDT Appointment Pulmonology at [place] [address] 11/02/2024 1:00 PM EDT Office Visit Rheumatology at [place] [address] Magdalena Peralta MD [facility] [place] [address] 03/01/2025 4:15 PM EDT Office Visit Dermatology at [address] [place] [address] Marek Bonilla MD [address], [place] [address] Scheduled Referrals Name Type Priority Associated Diagnoses Orde r Schedule Referral to Hematology and Oncology Outpatient Referral Routine Anemia, unspecified type Ordered: 04/11/2024 documented as of this encounter Visit Diagnoses Diagnosis Anemia, unspecified type documented in this encounter Care Teams Armor Reconnaissance Vehicle Crewman Relationship Specialty Start Date End Date Magdalena Acosta MD [address] [place] [address] PCP - General Family Medicine 02/05/23 documented as of this encounter
--- OUTSIDE RECORDS SUMMARY | 2024-06-13 14:10 | XMS_ITS | Encounter Summary ---
Author Organization [facility] Address [facility] [place] [address] Care Team Providers Care Biological Lab Technician Name Role Phone Magdalena Acosta MD Primary Care Provider [phone] Encounter Details Date Type Department Care Team [...] EST Office Visit [place] [address] Markel Borjas MD [facility] [address] [place] [address] 11/02/2024 12:00 PM EDT [place] [address] 11/02/2024 1:00 PM EDT Office [place] [address] Magdalean Peralta MD [facility] [place] [address] 03/01/2025 4:15 PM EDT Office Visit Dermatology at [place] [address] [facility] [place] [address] Marek Bonilla MD [address] [facility] [address] [address], [place] [address] documented as of this encounter Visit Diagnoses Not on filedocumented in this encounter Care Teams Biological Lab Technician Relationship Specialty Start Date End Date Magdalena Acosta MD [address] [place] [address] PCP - General Family Medicine 02/05/23 documented as of this encounter
--- OUTSIDE RECORDS SUMMARY | 2024-06-13 14:10 | XMS_ITS | Encounter Summary ---
Author Organization [facility] Address [facility] [place] [address] Care Team Providers Care Stitching Machine Setter Name Role Phone Magdalena Acosta MD Primary Care Provider [phone] Encounter Details Date Type Department Care Team [...] EST Office Visit [place]ematology [place] [address] Markel Borjas MD [facility] [place] [address] 11/02/2024 12:00 PM EDT Appointment [place] [address] 11/02/2024 1:00 PM EDT Office [place] [address] Magdalena Peralta MD [facility] [place] [address] 03/01/2025 4:15 PM EDT Office Visit Dermatology at [place] [address] [facility] [place] [address] Marek Bonilla MD [address], [place] Katherine [place] [address] documented as of this encounter Visit Diagnoses Not on filedocumented in this encounter Care Teams Stitching Machine Setter Relationship Specialty Start Date End Date Magdalena Acosta MD [address] [place] [address] PCP - General Family Medicine 02/05/23 documented as of this encounter
--- OUTSIDE RECORDS SUMMARY | 2024-06-13 14:10 | XMS_ITS | Encounter Summary ---
Author Organization [facility] Address [facility] [place] [address] Care Team Providers Care Menu Planner Name Role Phone Magdalena Acosta MD Primary Care Provider [phone] Encounter Details Date Type Department Care Team (Latest Contact Info) Description 05/12/2024 9:00 AM EDT Laboratory Appointment Lab at [facility] Hematology Oncology [address] [place] [address] S/P TAVR (transcatheter aortic valve replacement); Chronic idiopathic neutropenia Social History Tobacco Use Types Packs/Day Years Used Date Smoking Tobacco: Never Smokeless Tobacco: Never Alcohol Use Standard Drinks/Week Comments No 0 (1 standard drink = 0.6 oz pur e alcohol) none [facility] Inpatient Questions Answer Date Recorded Does [...] Office Visit Hematology [place] [address] Markel Borjas MD [facility] [address] HEMATOLOGY [place] [address] 11/02/2024 12:00 PM EDT Appointment [place] [address] 11/02/2024 1:00 PM EDT Office [place] [address] Magdalena Peralta MD [facility] [address] RHEUMATOLOGY DEPT [place], [place] [address] 03/01/2025 4:15 PM EDT Office Visit Dermatology at [place] [address] [facility] [place] [address] Marek Bonilla MD [address], [place] [address] documented as of this encounter Procedures Procedure [...] - 2.50 % 05/12/2024 9:32 AM EDT [facility] Retic Abs # 0.0397 0.0200 - 0.1100 x10(6)/mcL 05/12/2024 9:32 AM EDT [facility] Immature Retic% 8.1 0.5 - 13.8 % 05/12/2024 9:32 AM EDT [facility] Reticulated Hgb 35.2 29.8 - 39.4 pg 05/12/2024 9:32 AM EDT [facility] Blood VENOUS BLOOD SPECIMEN / Unknown Venipuncture / Unknown 05/12/2024 8:56 AM EDT 05/12/2024 8:56 AM EDT Tova Russell INTERNET ASSESSOR HEMATOLOGY ORDERABL ES [facility] [place] [address] * (ABNORMAL) Comprehensive metabolic panel Non-fasting (05/12/2024 8:56 AM EDT) Glucose 86 65 - 199 mg/dL 05/12[facility]2024 [facility] Comment:Glucose Concentratio n >=200 mg/dL plus symptoms is consistent with Diabetes Mellitus. Blood Urea Nitrogen 20(H) 8 - 18 mg/dL 05/12/2024 11:36 AM [facility] Creatinine 0.88 0.70 - 1.20 mg/dL 05/12/2024 11:36 AM [facility] Sodium 145 135 - 145 mMol/L 05/12/2024 11:36 AM [facility] Potassium 4.6 3.5 - 5.0 mMol/L 05/12/2024 11:36 AM [facility] Chloride 109(H) 98 - 107 mMol/L 05/12/2024 11:36 AM [facility] Carbon Dioxide 21(L) 22 - 31 mMol/L 05/12/2024 11:36 AM [facility] Anion Gap 15 5 - 15 mMol/L 05/12/2024 11:36 AM [facility] Comment:Not Calculated. Calcium 9.9 8.5 - 10.5 mg/dL 05/12/2024 11:36 AM [facility] Protein, Total 7.3 6.1 - 8.0 g/dL 05/12/2024 11:36 AM [facility] Albumin 4.5 3.2 - 5.2 g/dL 05/12/2024 11:36 AM T [facility] Aspartate Aminotransferase 24 <=30 unit/L 05/12/2024 11:36 AM [facility] Alanine Aminotransferase 14 0 - 30 unit/L 05/12/2024 11:36 AM [facility] Alkaline Phosphatase 98 35 - 105 unit/L 05/12/2024 11:36 AM [facility] Bilirubin, Total 0.2 <=1.3 mg/dL 05/12/2024 11:36 AM [facility] Est Glomerular Filtration Rate - Female 72 mL/min/1. 73 m?? 05/12/2024 11:36 AM [facility] Comment: This patient's estimated GFR [...] Fasting Status No 05/12/2024 11:36 AM T [facility] Blood VENOUS BLOOD SPECIMEN / Unknown Venipuncture / Unknown 05/12/2024 8:56 AM EDT 05/12/2024 8:56 AM EDT Tova Russell INTERNET ASSESSOR CHEMISTRY ORDERABLE S [facility] [place] [address] * (ABNORMAL) CBC (with Diff) (05/12/2024 8:56 AM EDT) White Blood Cell 3.47(L) 4.00 - 9.50 x10(3)/mc L 05/12/2024 9:32 AM EDT [facility] Red Blood Cell 3.31(L) 4.00 - 5.21 x10(6)/mc L 05/12/2024 9:32 AM [facility] Hemoglobin 11.1(L) 11.7 - 15.5 g/dL 05/12/2024 9:32 AM [facility] Hematocrit 33.2(L) 35.7 - 45.8 % 05/12/2024 9:32 AM [facility] Mean Cell Volume 100.3(H) 82.6 - 94.4 fL 05/12/2024 9:32 AM [facility] Mean Cell Hemoglobin 33.5(H) 27.1 - 32.0 pg 05/12/2024 9:32 AM [facility] Mean Cell Hemoglobin Concentration 33.4 31.7 - 35.0 g/dL 05/12/2024 9:32 AM [facility] Platelet 142(L) 145 - 357 x10(3)/mc L 05/12/2024 9:32 AM [facility] Mean Platelet Volume 8.7 7.6 - 12.9 fL 05/12/2024 9:32 AM [facility] RDW Standard Deviation 44.4 37.0 - 46.0 fL 05/12/2024 9:32 AM [facility] RDW coefficient of variation 12.0 11.5 - 14.1 % 05/12/2024 9:32 AM [facility] NRBC% auto 0.0 % 05/12/2024 9:32 AM [facility] NRBC Absolute <0.01 <0.01 x10(3)/mc L 05/12/2024 9:32 AM [facility] Neutrophil % 69.7 % 05/12/2024 9:32 AM [facility] Neutrophil Absolute (ANC) - Automated 2.42 1.70 - 6.10 x10(3)/mc L 05/12/2024 9:32 AM [facility] Lymph % 16.7 % 05/12/2024 9:32 AM EDT [facility] Lymph Absolute 0.58(L) 0.90 - 3.20 x10(3)/mc L 05/12/2024 9:32 AM EDT [facility] Monocyte % 12.1 % 05/12/2024 9:32 AM EDT [facility] Monocyte Absolute 0.42 0.30 - 0.90 x10(3)/mc L 05/12/2024 9:32 AM EDT [facility] Eos % 0.6 % 05/12/2024 9:32 AM EDT [facility] Eos Absolute <0.04 0.00 - 0.40 x10(3)/mc L 05/12/2024 9:32 AM EDT [facility] Basophil % 0.6 % 05/12/2024 9:32 AM EDT [facility] Baso Absolute <0.04 0.00 - 0.10 x10(3)/mc L 05/12/2024 9:32 AM EDT [facility] Immature Gran % 0.3 % 9:32 AM EDT [facility] Immature Gran Absolute <0.04 0.00 - 0.04 x10(3)/mc L 05/12/2024 9:32 AM EDT [facility] Blood VENOUS BLOOD SPECIMEN / Unknown Venipuncture / Unknown 05/12/2024 8:56 AM EDT 05/12/2024 8:56 AM EDT Tova Russell INTERNET ASSESSOR HEMATOLOGY ORDERABL ES [facility] [place] [address] documented in this encounter Visit Diagnoses Diagnosis S/P TAVR (transcatheter aortic valve replacement) Chronic idiopathic neutropenia Other neutropenia documented in this encounter Care Teams Menu Planner Relationship Specialty Start Date End Date Magdalena Acosta MD [address] [place] [address] PCP - General Family Medicine 02/05/23 documented as of this encounter
--- OUTSIDE RECORDS SUMMARY | 2024-06-13 14:10 | XMS_ITS | Encounter Summary ---
Author Organization [facility] Address [facility] [place] [address] Care Team Providers Care Stripe Matcher Name Role Phone Magdalena Acosta MD Primary Care Provider [phone] Encounter Details Date Type Department Care Team [...] EST Office Visit Hematology [place] [address] Markel Borjas MD [facility] [address] [place] [address] 11/02/2024 12:00 PM EDT Appointment [place] [address] 11/02/2024 1:00 PM EDT Office [place] [address] Magdalena Peralta MD [facility] [place] [address] 03/01/2025 4:15 PM EDT Office Visit Dermatology at [place] [address] [facility] [place] [phone] Marek Bonilla MD [address], [address] [place] [address] documented as of this encounter Visit Diagnoses Not on filedocumented in this encounter Care Teams Stripe Matcher Relationship Specialty Start Date End Date Magdalena Acosta MD [address] [place] [address] PCP - General Family Medicine 02/05/23 documented as of this encounter
--- OUTSIDE RECORDS SUMMARY | 2024-06-13 14:10 | XMS_ITS | Encounter Summary ---
Author Organization [facility] [place] [address] Care Team Providers Care Clinical Services Specialist Name Role Phone Magdalena Acosta MD Primary Care Provider [phone] Encounter Details Date Type Department Care Team (Late st Contact Info) Description 12/02/2023 11:15 AM EDT Office Visit [place] [address] Magdalena Peralta MD [facility] [place] [address] Mixed connective tissue disease Social History Tobacco [...] 1:5120 speckled; VIC negative; Myositis panel with ICE GRINDER ab 149.1 (positive); Anti U1RNP IgG 119; [...] list of questions that she sent via [facility] ahead of her visit, which we [...] exposure. She has an appointment with her Training Lead scheduled in January. (Dr Bonilla in [place]) ROS (positives in bold): Gen: no fevers, [...] but I encouraged her to contact her Training Lead to see if she could have her [...] Dr. Tanisha Peralta MD Rheumatology Fellow Pager: [phone] * Federico Yee MD - 12/02/2023 11:15 [...] Visit Hematology and Oncology at [place] [phone] Markel Borjas MD [facility] [address] HEMATOLOGY [place] [address] 11/02/2024 12:00 PM EDT Appointment Pulmonology at [place] [address] 11/02/2024 1:00 PM EDT Office Visit Rheumatology at [place] [address] Magdalena Peralta MD [facility] [place] [address] 03/01/2025 4:15 PM EDT Office Visit Dermatology at [place] [address] [facility] [place] [address] Marek Bonilla MD [address] [facility] [place] [address] Scheduled Orders Name Type Priority Associated Diagnoses Orde r Schedule EKG 12 Lead ECG Routine Mixed connective tissue disease Expected: 12/02/2023, Expires: 06/03/2024 documented as of this encounter Visit Diagnoses Diagnosis Mixed connective tissue disease Other specified diffuse disease of connective tissue documented in this encounter Care Teams Clinical Services Specialist Relationship Specialty Start Date End Date Magdalena Acosta MD [address] [place] [address] PCP - General Family Medicine 02/05/23 documented as of this encounter
--- OUTSIDE RECORDS SUMMARY | 2024-06-13 14:10 | XMS_ITS | Encounter Summary ---
Author Organization [facility] [place] [address] Care Team Providers Care Center Director Lead Teacher Name Role Phone Magdalena Acosta MD Primary Care Provider [phone] Reason for Referral * Diagnostic Test (Routine) - New Request Specialty Diagnoses / Procedures Referred By Contac t Referred To Contact Cardiology Diagnoses S/P TAVR (transcatheter aortic valve replacement) Procedures Echocardiogram Transthoracic Antelmo Sharma MD [facility] [place] [address] [facility] [place] [address] Referral ID Status Reason Start Date Expiration Date Visits Requested Visits Authorized [id number] New Request Specialty Service Requested 12/16/2023 12/15/2024 1 1 Encounter Details Date Type Department Care Team (Late st Contact Info) Description 12/16/2023 Orders Only Cardiology at [address] [address] Antelmo Sharma MD [facility] [place] [address] S/P TAVR (transcatheter aortic valve [...] EST Office Visit Hematology and Oncology at [place] [phone] Markel Borjas MD [facility] [place] [address] 11/02/2024 12:00 PM EDT Appointment Pulmonology at [place] [address] 11/02/2024 1:00 PM EDT Office Visit Rheumatology at [place] [address] Magdalena Peralta MD [facility] [place] [address] 03/01/2025 4:15 PM EDT Office Visit Dermatology at [place] [address] [facility] [place] [phone] Marek Bonilla MD [address] [facility] [place] [address] Scheduled Orders Name Type Priority Associated Diagnoses Order Schedule Echocardiogram Transthoracic Echocardiography Routine S/P TAVR (transcatheter aortic valve replacement) Expected: 12/16/2023 (Approximate), Expires: 06/17/2024 EKG 12 Lead ECG Routine S/P TAVR (transcatheter aortic valve replacement) Expected: 12/16/2023 (Approximate), Expires: 06/17/2024 documented as of this encounter Visit Diagnoses Diagnosis S/P TAVR (transcatheter aortic valve replacement) documented in this encounter Care Teams Center Director Lead Teacher Relationship Specialty Start Date End Date Magdalena Acosta MD [address] [place] [address] PCP - General Family Medicine 02/05/23 documented as of this encounter
--- OUTSIDE RECORDS SUMMARY | 2024-06-13 14:11 | XMS_ITS | Encounter Summary ---
Author Organization [place] [id number] Care Team Providers Care Parcel Post Carrier Name Role Phone Magdalena Acosta MD Primary Care Provider [phone] Reason for Visit * Auth/Cert (Routine) Specialty Diagnoses / Procedures Referred By Contac t Referred To Contact Diagnoses Symptomatic severe aortic stenosis with low ejection fraction NSTEMI, CHF Haris Chua MD [facility] [place] [address] [facility] Referral ID Status Reason Start Date Expiration Date Visits Re quested Visits Authorized [id number] 1 1 Encounter Details Date Type Department Care Team (Late st Contact Info) Description 05/12/2023 7:35 AM EDT Anesthesia [place] [address] Lynda Mcgowan MD [facility] [place] [address] Alie Park MD [facility] [place] [address] Anesthesia Record Procedure Summary Procedure Name Responsible [...] cephalic vein (lateral side of arm), left; [id number] catheter system; Anatomical Landmarks; US Not Used; [...] right; introducer; 05/15/23; 1846 05/12/23 0030 by Nroeen Deutsch RN 05/15/23 184 by Luis Felipe Parra RN LDA Cath/EP Sheath 05/12/23; 0733; 14 [place] (Fr); Right; Femoral; Arterial 05/12/23 0733 by Guerda Bender, RN 05/12/23 0830 by Guerda Bender RN LDA Cath/EP Sheath 05/12/23; 0734; 6 [place] (Fr); Right; Femoral; Venous 05/12/23 0734 by Guerda Bender RN 05/12/23 0817 by Guerda Bender RN LDA Cath/EP Sheath 05/12/23; 0734; 7 [place] (Fr); Left; Femoral; Arterial 05/12/23 0734 by Guerda Bender, RN 05/12/23 0837 by Guerda Bender RN LDA Cath/EP Sheath 05/12/23; 0734; 6 [place] (Fr); Left; Femoral; Venous 05/12/23 0734 by [...] Procedure Summary Date: 05/12/23 Room / Location: [facility] / [facility] Anesthesia Start: 734 Anesthesia [...] All Anesthesia Providers: Anesthesiologist: Lynda Mcgowan MD Operations Examiner: Nico Graham MD Vitals Value Taken Time [...] 05/08/2023 ??? Mild coronary artery disease by [facility] 11/09/2022 05/08/2023 ??? Heart failure with [...] S&I N/A 11/09/2022 CORONARY ANGIOGRAPHY; [facility],POSSIBLE PCI (WRVU 5.6) performed by Nitesh Escobedo MD at [facility] CATH [facility] ??? PRO AORTOPLAS FOR SUPRAVALV STEN N/A 09/21/2016 @AORTOPLASTY FOR SUPRAVALVULAR STENOSIS (WRVU 29.33) performed by Alirio Esparza MD at [facility] MAIN OR ??? PRO REPLACEMENT PROSTHETIC AORTIC VALVE OPEN W CARDIOPULMONARY BYPASS HOMOGRF/STENT N/A 09/21/2016 @REPLACE AORTIC VALVE, OPEN, W\CPB, W\PROSTHETIC VALVE (WRVU 41.32) performed by Alirio Esparza MD at [facility] MAIN OR Social History Tobacco Use [...] 3 general, with a(n) intravenous induction Add-on [id number] TAVR. In cardiogenic shock. Has arterial line, [...] EST Office Visit [place] [address] Markel Borjas MD [facility] [address] [place] [address] 11/02/2024 12:00 PM EDT [place]oint[place] [phone] 11/02/2024 1:00 PM EDT Office [place] [address] Magdalena Peralta MD [facility] [place] [address] 03/01/2025 4:15 PM EDT Office Visit Dermatology at [address] [place] [address] Marek Bonilla MD [address] [place] [address] documented as of this encounter Visit Diagnoses [...] mL/hr documented in this encounter Care Teams Parcel Post Carrier Relationship Specialty Start Date End Date Magdalena Acosta MD [address] [place] [address] PCP - General Family Medicine 02/05/23 documented as of this encounter
--- OUTSIDE RECORDS SUMMARY | 2024-06-13 14:11 | XMS_ITS | Encounter Summary ---
Author Organization [facility] Address [facility] [address] Care Team Providers Care Food And Drug Research Scientist Name Role Phone Magdalena Acosta MD Primary Care Provider [phone] Reason for Referral * Diagnostic Test (Routine) - Closed Specialty Diagnoses / Procedures Referred By Contac t Referred To Contact Cardiology Diagnoses S/P TAVR (transcatheter aortic valve replacement) Procedures Echocardiogram Transthoracic Vinod Juárez PA [facility] [place] [address] [facility] [place] [address] Referral ID Status Reason Start Date Expiration Date V isits Requested Visits Authorized [id number] Closed Specialty Service Requested 05/22/2023 05/21/2024 1 1 * Home Health Care (Routine) - Closed Specialty Diagnoses / Procedures Referred By Contac t Referred To Contact Diagnoses S/P TAVR (transcatheter aortic valve replacement) Alirio Hudson MD [facility] CARDIOTHORACIC SURGERY [address] [facility] & [address] [place] [address] Referral ID Status Reason Start Date Expiration Date V isits Requested Visits Authorized [id number] Closed Consult, Test & Treat 05/22/2023 11/18/2023 999 999 * Consultation (Routine) - Closed Specialty Diagnoses / Procedures Referred By Crispin maxwell Referred To Contact Cardiology Diagnoses S/P TAVR (transcatheter aortic valve replacement) Alirio Hudson MD [facility] [place] [address] Cardiac Rehab, [address] [place] [address] Referral ID Status Reason Start Date Expiration Date V isits Requested Visits Authorized [id number] Closed Consult, Test & Treat 05/22/2023 11/18/2023 36 36 * Diagnostic Test (Routine) - Closed Specialty Diagnoses / Procedures Referred By Crispin maxwell Referred To Contact Cardiology Diagnoses Aortic valve stenosis, etiology of cardiac valve disease unspecified Procedures Echocardiogram Transthoracic Transesophageal Echocardiogram (YUSRA) Radha Hollins MD [facility] [place] [address] [facility] [place] [address] Referral ID Status Reason Start Date Expiration Date V isits Requested Visits Authorized [id number] Closed Specialty Service Requested 05/11/2023 05/10/2024 1 1 Reason for Visit * Auth/Cert (Routine) Specialty Diagnoses / Procedures Referred By Crispin maxwell Referred To Contact Diagnoses Symptomatic severe aortic stenosis with low ejection fraction NSTEMI, CHF Enrique Chua MD [facility] [place] [address] [facility] Referral ID Status Reason Start Date Expiration Date Visits Re quested Visits Authorized [id number] 1 1 Encounter Details Date Type Department Care Team (Latest Contact Info) Description 05/08/2023 9:14 AM EDT - 05/22/2023 10:46 AM EDT Hospital Encounter Heart and Vascular Unit Level 4 [place] [address] Enrique Chua MD [facility] [place] [address] Juan Luis Gonzalez MD [facility] [place] [address] Radha Hollins MD [facility] [place] [address] Alirio Hudson MD S/P TAVR (transcatheter aortic valve replacement) (Primary Dx); Aortic valve stenosis, etiology of cardiac valve disease unspecified; Symptomatic severe aortic stenosis with low ejection fraction; Heart failure with reduced ejection fraction due to heart valve disease; Mild coronary artery disease by [facility] 11/09/2022; Mixed connective tissue disease; Neck [...] Patient Age: 67 y.o. Birthdate: 1955 Language: Polish Race: White Ethnicity: Not nor Admit Date: 05/08/2023 Discharge Date: 05/22/2023 Attending Physician: Alirio Hudson MD Follow-up Recommendations for Providers: Please continue routine management of cardiovascular risk factors including blood pressure, lipids,glucose, etc. Please note any medication changes. Patient to follow up with PCP, Magdalena Acosta MD, or Primary Sales Representative Wire Rope, Maria Luz Mejia MD, in ~ 7-10 days. Patient to follow up with Electric Serviceman, Dr. Antelmo Sharma, in 2 weeks with an EKG, Echo, CBC, and CMP. Patient to follow up with Nephrology, their office to arrange. Yvny-Hdumoy-ia interval: After initial 30 day follow-up appointment , all TAVR patients will follow-up again in one year with an echo. 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 11/09/2022 Heart failure with reduced ejection [...] Tube Placement Right 05/18/2023 Laure Ricks PA [facility] INTERVENTIONL RAD PRG CATH PLMT LEFT HEART CATH & ARTS W/INJ & ANGIO IMG S&I N/A 11/09/2022 CORONARY ANGIOGRAPHY; W [facility],POSSIBLE PCI (WRVU 5.6) performed by Mario Alberto Escobedo MD at [facility] CATH LABS PRG COMBINED RIGHT & LEFT HEART CATH W/INJ L VENTRICULOGRAPHY, IMG S&I N/A 05/12/2023 COMBINED RIGHT & LEFT HEART CATH,INC INJ FOR L VENTRICULOGRAPHY (WRVU 5.99) performed by Antelmo Sharma MD at [facility] CATH LABS PRO AORTOPLAS FOR SUPRAVALV STEN N/A 09/21/2016 @AORTOPLASTY FOR SUPRAVALVULAR STENOSIS (WRVU 29.33) performed by Alirio Hudson MD at [facility] MAIN OR PRO REPLACE AORTIC VALVE (TAVR/FEDERICO)PERC FEMORAL ARTERY APPROACH 05/12/2023 @TRANSCATHETER AORTIC VALVE REPLACEMENT (TAVR), PERCUTANEOUS FEMORAL (WRVU 22.47) performed by Alirio Hudson MD at [facility] CATH LABS PRO REPLACEMENT PROSTHETIC AORTIC VALVE OPEN W CARDIOPULMONARY BYPASS HOMOGRF/STENT N/A 09/21/2016 @REPLACE AORTIC VALVE, OPEN, W\CPB, W\PROSTHETIC VALVE (WRVU 41.32) performed by Alirio Hudson MD at [facility] MAIN [...] Major Procedures/Operations: 05/12/23: Successful right transfemoral TAVR Kwbya-vg-Czoys with a 23 mm Lai 3 THV. Left coronary protection with left main MINNA. Hospital Course: #Severe prosthetic s/p valve in valve TF TAVR #Low coronary heights s/p left main stent for coronary protection #Type 2 NSTEMI, present on arrival, resolved #Acute decompensated HFrEF #Cardiogenic shock #EVANS / Cardiorenal syndrome Purnima Thacker was admitted to [facility] on 05/08/2023 via the Cardiology [...] TAVR and she was brought to the animal laboratory helper the following morning where Drs. Alirio Hudson [...] if you have questions. Please call your Electric Serviceman's office if you have any discharge or drainage from your procedural sites. Your Electric Serviceman, Dr. Antelmo Sharma and/or the Turkey Egg Gatherer may be reached at . Antibiotic prophylaxis: You will need to take antibiotics prior to many invasive tests and treatments, such as dental cleaning, which should be done every 6 months. Your primary care physician or your dentist can prescribe this medication. Please refer to the card with the [place] [employer] Guidelines for more information. You have been provided with a copy of this card. Please refer to the [place] [employer] Guidelines for more information. Good [...] should resume a low fat, low cholesterol, [place] [employer] Diet Driving: No restrictions. Shower/Bath: You may shower daily. No baths, soaking, or swimming for the first week. Wound care: Wash the sites daily with soap and rinse well, pat dry. Assess for any signs of infection such as increased redness, pain, warmth or drainage. Please call your audio visual aide's office if you have any discharge or drainage from your procedural sites. If there is a lot of swelling, apply mamta wraps during the day and remove at bedtime. Elevate your legs when you are sitting. Home oxygen therapy: N/A Follow up appointments: Please schedule a follow-up appointment with your PCP, Magdalena Acosta MD, or Primary Sales Representative Wire Rope in ~ 7-10 days. You have a follow-up appointment with your Electric Serviceman, Dr. Antelmo Sharma, in 2 weeks with an EKG, Echo, and labs prior to your appointment. You will need follow-up with Nephrology, their office will arrange. Beac-Zgwyrj-oy interval: After initial 30 day follow-up appointment , all TAVR patients will follow-up again in one year with an echo. Cardiac Rehabilitation: Purnima Thacker was seen today regarding participation in the outpatient Phase 2 Cardiac Rehabilitation at [facility]. The patient agrees to a referral to this program. The referral will be sent at discharge and the patient should be contacted by the Program within 1- 2 weeks from discharge. Future Appointments and Orders Future Appointments and Orders Future Appointments Provider Department Dept Phone 07/29/2023 11:00 AM Magdalena Peralta MD Rheumatology at [facility] Arrive at: Fireboat Operator Area [address] [phone] 02/11/2024 2:00 PM Marek Bonilla MD Dermatology at [place] Arrive at: [facility] [address] [phone] Future Orders Complete By Expires Type and Screen Future Surgery, [facility] SAME DAY PROGRAM ONLY) [[id number] Custom] 05/11/2023 Process Instructions: This test is intended ONLY for patients with upcoming surgery for testing prior to the day of surgery obtained through the same day program (4V or SDP). For ALL OTHER PATIENTS, order a Type and Screen (GUM935) This order includes the physician order for an ABO Recheck if requested by the Blood Bank. Scheduling Instructions: Comments: Questions: Date of surgery: CBC (with Diff) [PNY136 Custom] 06/05/2023 12/05/2023 Process Instructions: INCLUDES: WBC, RBC, Hgb, Hct, Platelets, RBC Indices and Differential Scheduling Instructions: Comments: Questions: Comprehensive metabolic panel (non-fasting) [LAB17 Custom] 06/05/2023 08/20/2023 Process Instructions: INCLUDES: Calcium, T Protein, Albumin, AST, ALT, Alk Phos, T Bili, BUN, Creat, GFR, Glucose, Lytes. Scheduling Instructions: Comments: Questions: Echocardiogram Transthoracic [28831 CPT(R)] 06/05/2023 12/05/2023 Process Instructions: Scheduling Instructions: Questions: Where will study be performed?: [facility] Clinics Does the patient have Congenital Heart Disease?: Does patient require sedation?: GA rationale: EKG 12 Lead [32012 CPT(R)] 06/05/2023 12/05/2023 Process Instructions: Scheduling Instructions: Questions: Which location will this be performed?: [place] Is a rhythm strip needed?: No [facility] Devices [EQ161 Custom] As directed Process Instructions: Scheduling Instructions: Questions: Device Needed: WALKER (E0143) Patient Height (cm): 154.9 cm (5' 0.98) Patient Weight: 75.4 kg (166 lb 3.2 oz) Diagnosis: Unsteady gait when walking Referral to Cardiac Rehab [GZI755 Custom] As directed Process Instructions: If no progress note charted, please enter Clinical details in comments. Scheduling Instructions: Questions: My question or request is: s/p TAVR. Cardiac rehab at [facility]. Referral to Home Health [REF34 Custom] As directed Process Instructions: If no progress note charted, please enter Clinical details in comments. Scheduling Instructions: Comments: DOCUMENTATION FOR VNA SERVICES PATIENT'S LOCATION: Purnima Thacker [address] [place] [phone] (home) Rush Seater's Name: Self and brother Raymond In discussion with the attending physician, it is certified that this patient is under his/her careand that MD, or an POWDER MONKEY, CONSUMER PRODUCT ADVISOR, or PA who is working directly with him/her, had a jbce-cd-xxjr encounter that meets the physician qgjz-cr-dksy encounter requirements with this patient on 05/22/2023. [...] for managing ADLs. HOME HEALTH CARE AGENCY: [facility]. [address] [place] [address] PHONE: [phone] FAX: [phone] Start of care: Ideally 24-48 hours after [...] [address] / [facility] [address] All VNA agencies which cover the area of patient's residence have been reviewed, either verbally joao writing, and patient has chosen the home health care agency noted. Questions: Disciplines Requested: Physical Therapy Occupational Therapy Discharge References/Attachments None Arrangements for VNA/home care: As above. (delete if no VNA) Signed: EKATERINA NAVARRETE [facility] Section of Cardiac Surgery Date: 05/22/2023 CC: Magdalena Acosta MD [place] ForesideMario Alberto MD [address] [place] [address] documented in this encounter Discharge Instructions * Patient Instructions* Vinod Juárez PA - 05/22/2023 9:32 AM EDT TAVR Discharge Instructions: Call your doctor if: You have a fever of greater than 101 degrees, shaking chills, if you develop redness or drainage from your procedure sites, or if you have questions. Please call your Electric Serviceman's office if you have any discharge or drainage from your procedural sites. Your Electric Serviceman, Dr. Antelmo Sharma and/or the Turkey Egg Gatherer may be reached at . Antibiotic prophylaxis: You will need to take antibiotics prior to many invasive tests and treatments, such as dental cleaning, which should be done every 6 months. Your primary care physician or your dentist can prescribe this medication. Please refer to the card with the [place] [employer] Guidelines for more information. You have been provided with a copy of this card. Please refer to the [place] [employer] Guidelines for more information. Good [...] should resume a low fat, low cholesterol, [place] [employer] Diet Driving: No restrictions. Shower/Bath: You may shower daily. No baths, soaking, or swimming for the first week. Wound care: Wash the sites daily with soap and rinse well, pat dry. Assess for any signs of infection such as increased redness, pain, warmth or drainage. Please call your audio visual aide's office if you have any discharge or drainage from your procedural sites. If there is a lot of swelling, apply mamta wraps during the day and remove at bedtime. Elevate your legs when you are sitting. Home oxygen therapy: N/A Follow up appointments: Please schedule a follow-up appointment with your PCP, Magdalena Acosta MD, or Primary Sales Representative Wire Rope in ~ 7-10 days. You have a follow-up appointment with your Electric Serviceman, Dr. Antelmo Sharma, in 2 weeks with an EKG, Echo, and labs prior to your appointment. You will need follow-up with Nephrology, their office will arrange. Hnmx-Ayoabi-fp interval: After initial 30 day follow-up appointment , all TAVR patients will follow-up again in one year with an echo. Cardiac Rehabilitation: Purnima Thacker was seen today regarding participation in the outpatient Phase 2 Cardiac Rehabilitation at [facility]. The patient agrees to a [...] ins ( tef) Haven Ba, PT Pager: [phone] Physical Therapy Inpatient Rehabilitation Department * Nico [...] 0600 and on the weekends please page [phone]. * Jory Paniagua - 05/20/2023 3:52 PM [...] vomiting Last Bowel Movement: 05/20/23 Jory Paniagua Decorative Cutting Machine Tender * Tong Mike, OT - 05/20/2023 3:16 [...] Tube Placement Right 05/18/2023 Laure Ricks PA [facility] INTERVENTIONL RAD PRG CATH PLMT LEFT HEART CATH & ARTS W/INJ & ANGIO IMG S&I N/A 11/09/2022 CORONARY ANGIOGRAPHY; W [facility],POSSIBLE PCI (WRVU 5.6) performed by Mario Alberto Escobedo MD at [facility] CATH LABS PRG COMBINED RIGHT & LEFT HEART CATH W/INJ L VENTRICULOGRAPHY, IMG S&I N/A 05/12/2023 COMBINED RIGHT & LEFT HEART CATH,INC INJ FOR L VENTRICULOGRAPHY (WRVU 5.99) performed by Antelmo Sharma MD at [facility] CATH LABS PRO AORTOPLAS FOR SUPRAVALV STEN N/A 09/21/2016 @AORTOPLASTY FOR SUPRAVALVULAR STENOSIS (WRVU 29.33) performed by Alirio Hudson MD at [facility] MAIN OR PRO REPLACE AORTIC VALVE (TAVR/FEDERICO)PERC FEMORAL ARTERY APPROACH 05/12/2023 @TRANSCATHETER AORTIC VALVE REPLACEMENT (TAVR), PERCUTANEOUS FEMORAL (WRVU 22.47) performed by Alirio Hudson MD at [facility] CATH LABS PRO REPLACEMENT PROSTHETIC AORTIC VALVE OPEN W CARDIOPULMONARY BYPASS HOMOGRF/STENT N/A 09/21/2016 @REPLACE AORTIC VALVE, OPEN, W\CPB, W\PROSTHETIC VALVE (WRVU 41.32) performed by Alirio Hudson MD at [facility] MAIN OR Social History: Patient lives alone. Home Setup: Pt lives on one level with tub shower and three steps to enter. DME: none used ORCHID WORKER Baseline ADL/Mobility: Independent with ADLs and [...] WFL Vision & Perception: corrective lenses multimedia specialist Communication: WFL Range of motion, strength, [...] Discharge planning. Total Minutes, Occupational Therapy: 28 ([id number]) OT Evaluation Code Rationale: Diagnosis & Pertinent Co-Morbidities affecting Plan of Care: see PMHx Occupational Profile & Client History: Brief Expanded Extensive x Assessment of Occupational Performance: 1-3 performance deficits 3-5 performance deficits x 5 + performance deficits Clinical Decision Making: Low Moderate High x Clinical decision making of moderate complexity using standardized patient assessment instrument and measurable assessment of functional outcome. Pager: [phone] TONG MIKE OT 05/20/2023 Occupational Therapy Rehabilitation [...] 0600 and on the weekends please page [phone]. * Rylie Rodriguez MD - 05/19/2023 3:59 [...] and plan. Cynthia Blackburn MD Nephrology Pager: [phone] * Diana Espino - 05/19/2023 1:49 PM EDT Deputy Controller Encounter Note Patient Name: Purnima Thacker : [id number] MR#: [id number] Admit Date: 05/08/2023 9:14 AM Hospital Day [...] as stated. Total Minutes, Physical Therapy: 38 ([id number]) Henrik Navarrete, ORCHID WORKER Pager: [phone] Physical Therapy Inpatient Rehabilitation Department * Nico [...] 0600 and on the weekends please page [phone]. * Laure Ricks PA - 05/19/2023 7:56 [...] Ricks PA-C Interventional Radiology IR Team Pager [phone] * Consuelo Espinoza RN - 05/18/2023 4:13 PM EDT ANGIO NURSING DATABASE Name: Purnima Thacker Date of : 1955 AGE: 67 y.o. Address: [address] [place] [phone] (home) Mobile: No relevant phone numbers on [...] and plan. Cynthia Blackburn MD Nephrology Pager: [phone] * Magdalena Puri, BEER RUNNER - 05/18/2023 10:51 AM EDT Images from the original note were not included. [facility] [place] [address] STRUCTURAL HEART DISEASE CONSULTATION NOTE PRIMARY CARE [...] stenosis. She is now status post TAVR Edlgw-iq-Mfilb with a 23 mm Lai 3 THV 05/12/[address] Sharma. Preliminary findings: Successful right transfemoral TAVR Ewazj-it-Jrtuy with a 23 mm Lai 3 THV. [...] [facility] 11/09/2022 Heart failure with reduced ejection [...] stenosis. She is now status post TAVR Amwxo-rf-Nuuop with a 23 mm Lai 3 THV 05/12/[address] Sharma. Janet TAVR case notable for coronary LAD protective MINNA. Status post TAVR, the patient was transferred to [facility] for pressor and inotropic support. [...] Magdalena Puri APRN Structural Heart Team Pager [phone] Team Office Please see addendum by Dr. Sharma for final plan and recommendations Associated attestation - Antelmo Sharma MD - 05/19/2023 10:52 PM EDT I have reviewed Magdalena Puri APRN's above history and I agree with the details as written. The assessment and plan were formulated in discussion with me and I agree with them as documented. Antelmo Sharma MD Pager [phone] * Nico Palacios PA - 05/18/2023 8:13 [...] 0600 and on the weekends please page [phone]. * Loli Hernandez, PT - 05/17/2023 5:27 [...] plan as stated. Time IN / OUT: 7287-0891 Total Minutes, Physical Therapy: 54 Billing Code: te-sx2, te-f, gait LOLI HERNANDEZ PT Pager: [phone] Physical Therapy Inpatient Rehabilitation Department * Cynthia [...] Well controlled. Cynthia Blackburn MD Nephrology Pager: [phone] * Maggie Mara, BEER RUNNER - 05/17/2023 8:26 AM EDT Cardiac Surgery [...] 0600 and on the weekends please page [phone]. * Guerda Del Valle - 05/16/2023 10:44 AM EDT Nutrition Services Note - Low Nutrition Acuity Purnima Thacker is a 67 y.o. female Reason for intervention: hospital day 9 Nutrition Plan: Continue diet order Encourage good PO Lasix and Zofran noted Added special serve: open containers Monitor weight Patient scheduled for a hospital day 9 nutrition evaluation. Irrigation Supervisor met with pt at bedside. Pt reports that her appetite and PO has much improved since admission. Denies nausea/vomiting or trouble chewing/swallowing. Irrigation Supervisor provided snack list but pt not interested in adding snacks at this time. Her only concern was that she is worried that she will eat too much which will cause too much pressure in her stomach. Irrigation Supervisor assured pt and suggested eating smaller [...] Last Bowel Movement: 05/10/23 Guerda Del Valle Decorative Cutting Machine Tender * Vinod Juárez PA - 05/16/2023 10:19 [...] 0600 and on the weekends please page [phone]. * Michael Jeffers MD - 05/16/2023 8:11 AM EDT Images from the original note were not included. Hypertension-Nephrology Inpatient Follow-up Purnima Thacker [id number] 1955 ID: 67 y.o. old female seen [...] IRONSAT 12 (L) 05/16/2023 SFOLATE >20.0 07/03/2022 [id number] 07/03/2022 Lab Results Component Value Date [...] Dr. Ayoub. Please contact me at phone: [phone] or pager: [phone] with any questions. Michael Jeffers MD Nephrology [...] -Nephrology consulted, labs and renal US ordered -Hemlock removed, ambulated around the unit -bilateral pleural [...] 0600 and on the weekends please page [phone]. * Hortencia Cody MD - 05/15/2023 2:07 [...] not included. Hypertension-Nephrology Inpatient Follow-up Purnima Thacker [id number] 1955 ID: 67 y.o. old female seen [...] HGB 7.8 (L) 05/13/2023 SFOLATE >20.0 07/03/2022 [id number] 07/03/2022 Lab Results Component Value Date [...] Dr. Ayoub. Please contact me at phone: [phone] or pager: [phone] with any questions. Michael Jeffers MD Nephrology [...] last 720 hours. T/L/D Art ETT CVL [place] ASSESSMENT, MANAGEMENT, and DECISION MAKIN y.o. female [...] outlined inthis evaluation. HAVEN BA, PT Pager: [phone] Physical Therapy Inpatient Rehabilitation Department Time IN / OUT: 6003-3784 Total time: Total Minutes, Physical Therapy: 30 [...] 0600 and on the weekends please page [phone]. * Antelmo Sharma MD - 05/14/2023 7:56 AM EDT Images from the original note were not included. [place] [place] [id number] STRUCTURAL HEART DISEASE CONSULTATION NOTE PRIMARY CARE [...] stenosis. She is now status post TAVR Jpguk-wz-Euzxh with a 23 mm Lai 3 THV 05/12/[address] Sharma. Preliminary findings: Successful right transfemoral TAVR Zagqd-nt-Oghdq with a 23 mm Lai 3 THV. [...] [facility] 11/09/2022 Heart failure with reduced ejection [...] stenosis. She is now status post TAVR Xcczf-ai-Hysgy with a 23 mm Lai 3 THV 05/12/[address] Sharma. Janet TAVR case notable for coronary LAD protective MINNA. Status post TAVR, the patient was transferred to [facility] for pressor and inotropic support. [...] Brody Kaplan APRN Structural Heart Team Pager [phone] Team Office Please see addendum by Dr. [...] exposure. Nephrology consultationtoday. Antelmo Sharma MD Pager [phone] * Antelmo Cardenas RN - 05/14/2023 5:18 AM EDT Pt AOx4, complaining of mild/moderate generalized pain (states her Meloxicam is effective at home) currently refusing prn oxycodone. NAEON, hemodynamically stable on Milrinone, Maps >65, ST in ntd247's down to NSR with frequent multifocal PVC's. [...] included. Former[facility] [place] [address] STRUCTURAL HEART DISEASE PROGRESS NOTE PRIMARY CARE [...] stenosis. She is now status post TAVR Ftvft-oi-Btsch with a 23 mm Lai 3 THV 05/12/[address] Sharma. Preliminary findings: Successful right transfemoral TAVR Jhiew-ls-Xcikd with a 23 mm Lai 3 THV. [...] or perforation. Interval Events: - Transferred to [facility] post- TAVR for pressor/inotropic support [...] [facility] 11/09/2022 Heart failure with reduced ejection [...] stenosis. She is now status post TAVR Kwfcl-cb-Jqtph with a 23 mm Lai 3 THV [...] Brody Kaplan APRN Structural Heart Team Pager [phone] Team Office Please see addendum by Dr. [...] DAPT moving forward. Antelmo Sharma MD Pager [phone] * Bonita Miguel PA - 05/13/2023 8:30 AM EDT Cardiac Surgery Progress Note Purnima Thacker is a 67 y.o. 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 PMH of s/p tissue AVR (2017), mixed connective tissue disease HTN, HLD, NICOLAS, diverticulosis, rosacea, essential tremor, and depression. 24h Events: From animal laboratory helper for above procedure Extubated at ~1600 to [...] soft b/l, no evidence of hematoma. Tubes/Lines/Drains: Hemlock, RIJ, A-line, Art, PIV Assessment/Plan: 67 y.o. [...] 0600 and on the weekends please page [phone]. * Onelia Schwartz MD - 05/12/2023 1:44 [...] [facility] 11/09/2022 Heart failure with reduced ejection [...] FiO2 weaned to 40%. 1105: ABG 7.34/42/73/22 7714-5189: SBT performed and passed on these settings [...] PCP: Magdalena Acosta MD PCP phone number: [phone] Date of Admission: 05/08/2023 ( Hospital Day 4 days ) Attending:aRdha Hollins MD ID: Purnima Thacker is a [...] 1447 PHART -- 7.34* 7.34* -- -- EDB6PKV -- 30* 30* -- -- PO2ART -- 72* 81* -- -- VUB6RAK -- 16.0* 15.7* -- -- LACTATEVEN 2.4* 2.7* 2.7* 4.8* 2.9* VBG (Venous Blood Gas) Recent Labs 05/12/23 0700 05/12/23 0318 05/12/2310505/11/23193905/11/23 1447 LACTATEVEN 2.4* 2.7* 2.7* 4.8* 2.9* Mixed Venous Sat Recent Labs 05/12/23 0508 05/12/23 0321 05/12/23 0114 05/12/23 0030 O9AICO0 30.7 32.7 37.3 25.1 Objective: Vitals Last [...] questions please contact the health child care associate that requested your imaging first. Electronically signed by: ALIX RUVALCABA MD, [facility] ([phone]), at 05/10/2023 1:[address] Cardiac for [...] questions please contact the health child care associate that requested your imaging first. Electronically signed by: Cullen Narayanan MD, [facility] ([phone]), at 05/11/2023 4:[address] Angiogram Abdomen [...] questions please contact the health child care associate that requested your imaging first. Electronically signed by: Eileen Gomes MD, [facility] ([phone]), at 05/11/2023 2:42 PM XR Chest One [...] questions please contact the health child care associate that requested your imaging first. [...] questions please contact the health child care associate that requested your imaging first. [...] and inotrope. She is planned for a rvfjv-gp-lzqtq TAVR this morning, which should hopefully improve her cardiac function. Neuro #ANNEI Cardiovascular #Cardiogenic shock #Critical aortic stenosis - [...] FACC Section of Cardiovascular Medicine [facility] Can Labelernapper runner [facility] of Medicine at [facility] * Noreen Deutsch RN - 05/12/2023 [...] 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 * Antelmo Sharma MD - 05/11/2023 9:45 AM EDT Images from the original note were not included. [place] [id number] STRUCTURAL HEART DISEASE CONSULTATION NOTE PRIMARY CARE [...] who had been referred for possible TAVR jtvvy-uv-lpvad evaluation. Her primary symptoms are of dyspnea [...] [facility]. 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 She [...] [facility] 11/09/2022 Heart failure with reduced ejection [...] send to lab ([facility] Result Value Ref Range Lactate WB 3.1 (H) 0.5 - 2.2 mmol/L Heparin (unfractionated) Level Result Value Ref Range Heparin UFH Level 0.46 IU/mL Lactate, whole blood, send to lab ([facility] Result Value Ref Range Lactate [...] leads Confirmed by MD Harshil, Enrique Bell ([id number]) on 05/10/2023 8:11:46 AM Cardiac Cath 11/09/2022 [...] alert Dr. Hudson of her inpatient status, [place] primary cardiac surgeon. Based on recent clinic visit, tentative plan had been for TAVR JANET ferrera given her chronological age. Cardiac cath 11/09/2022 notable for non-obstructive coronary disease. TAVR CTAs planned for today. Will review her case with cardiac surgery to determine best timing and therapies for her valve intervention. Addendum 05/11/2023 6:48 PM Due to decompensating HFrEF, she was transferred to [facility] this afternoon for further management. TAVR CT imaging support for adequate ileofemoral access. Given her acute deterioration today, will planfor RTF TAVR on 05/12/2023. Brody KaplanANURAG Structural Heart Disease Pager [phone] Please see addendum by Dr. Sharma for [...] signed and dated. Antelmo Sharma MD Pager [phone] * Harini Lance MD - 05/11/2023 6:06 AM EDT Images from the original note were not included. Cardiology Progress Note Patient info: Name: Purnima Thacker : 1955 PCP: Magdalena Acosta MD PCP phone number: [phone] Date of Admission: 05/08/2023 ( Hospital Day [...] questions please contact the health child care associate that requested your imaging first. Electronically signed by: ALIX RUVALCABA MD, [facility] ([phone]), at 05/10/2023 1:25 PM TTE: 05/08 -Left [...] [facility] 11/09/2022 Hyperlipidemia, unspecified NICOLAS (obstructive sleep [...] PCP: Magdalena Acosta MD PCP phone number: [phone] Date of Admission: 05/08/2023 ( Hospital Day [...] [facility] 11/09/2022 Hyperlipidemia, unspecified NICOLAS (obstructive sleep [...] PCP: Magdalena Acosta MD PCP phone number: [phone] Date of Admission: 05/08/2023 ( Hospital Day [...] Gas) No results found for: PHART, PO2ART, JCH7DVW, GSD1KZL Microbiology: Microbiology Results (Last 30 days) No [...] [facility] 11/09/2022 Hyperlipidemia, unspecified NICOLAS (obstructive sleep [...] 11/09/2022 CORONARY ANGIOGRAPHY; W [facility],POSSIBLE PCI (WRVU 5.6) performed by Mario Alberto Escobedo MD at [facility] CATH LABS PRO AORTOPLAS FOR SUPRAVALV STEN N/A 09/21/2016 @AORTOPLASTY FOR SUPRAVALVULAR STENOSIS (WRVU 29.33) performed by Alirio Hudson MD at [facility] MAIN OR PRO REPLACEMENT PROSTHETIC AORTIC VALVE OPEN W CARDIOPULMONARY BYPASS HOMOGRF/STENT N/A 09/21/2016 @REPLACE AORTIC VALVE, OPEN, W\CPB, W\PROSTHETIC VALVE (WRVU 41.32) performed by Alirio Hudson MD at [facility] MAIN OR Social History and Habits: [...] 11/09/2022 CORONARY ANGIOGRAPHY; W [facility],POSSIBLE PCI (WRVU 5.6) performed by Mario Alberto Escobedo MD at [facility] CATH LABS PRO AORTOPLAS FOR SUPRAVALV STEN N/A 09/21/2016 @AORTOPLASTY FOR SUPRAVALVULAR STENOSIS (WRVU 29.33) performed by Alirio Hudson MD at [facility] MAIN OR PRO REPLACEMENT PROSTHETIC AORTIC VALVE OPEN W CARDIOPULMONARY BYPASS HOMOGRF/STENT N/A 09/21/2016 @REPLACE AORTIC VALVE, OPEN, W\CPB, W\PROSTHETIC VALVE (WRVU 41.32) performed by Alirio Hudson MD at [facility] MAIN OR Social History and Habits: [...] days, which prompted her to present to [employer]. She also endorses some intermittent retrosternal chest pain with exertion.She endorses some dizziness with exertion, but has not gotten faint or passed out. At [employer] she was noted to be afebrile, blood pressure 105/64, HR 120s, satting 95% on 2L NC. Labs from [employer] [facility] [facility] are below, of note she [...] 89/59, which prompted the transfer to us. [employer] [facility] [facility] [facility] [facility] labs: CBC - Hgb 10.5 CMP - Cr 1.1 BNP 42342 HsTrop 1358 Lactate 1.6 D-dimer 1183 Interval History Patient was admitted to [facility] due to concern on low BP [...] Klaudia Reid MD Internal Medicine PGY-1 Pager [phone], M1-S1 Service Associated attestation - Juan Luis Gonzalez MD - 05/08/2023 10:00 PM EDT Cardiology Attending Addendum Active Hospital Problems Diagnosis Symptomatic severe aortic stenosis with low ejection fraction Heart failure with reduced ejection fraction due to heart valve disease Mild coronary artery disease by [facility] 11/09/2022 Hyperlipidemia, unspecified History of aortic valve replacement Resolved Hospital Problems No resolved problems to display. I have interviewed and examined the patient, reviewed the available data, and have discussed my findings, assessment and plan with the patient and the team on admission to S2 service (from [facility] service) today. I agree with Dr. [...] PCP: Magdalena Acosta MD PCP phone number: [phone] Date of Admission: 05/08/2023 ( Hospital Day 0 days ) Attending:Enrique Chua MD ID: Purnima Thacker is a 67 y.o. female w/ PMH of s/p bioprosthetic AVR in 2016 with recent concern for severe restenosis, HTN, HLD, mixed connective tissue disease, who presents in transfer from [employer] [facility] [facility] with worsening BONILLA and weight [...] four days, which promptedher to present to [employer]. She also endorses some intermittent retrosternal chest pain with exertion. She endorses some dizziness with exertion, but has not gotten faint or passed out. At [employer] she was noted to be afebrile, blood pressure 105/64, HR 120s, satting 95% on 2L NC. Labs from [employer] [facility] are below, of note she [...] 89/59, which prompted the transfer to us. [employer] [facility] [facility] [facility] [facility] labs: CBC - Hgb 10.5 CMP - Cr 1.1 BNP 95193 HsTrop 1358 Lactate 1.6 D-dimer 1183 Vasoactive [...] tissue disease, who presents in [facility] BONILLA and weight gain [...] Lincoln Sal MD Internal Medicine, PGY-1 Cardiology [facility] #[id number] 05/08/23 12:06 PM Cardiology Staff [...] to the planned procedure. Hand Hygiene: The service car operator did perform hand hygiene prior to [...] Successful arterial line placement. Crispin Timmons MD Turkey Egg Gatherer Associated attestation - Onelia Schwartz MD - [...] (flow was non-pulsatile) and appearance of blood. Hemlock-Marily catheter was placed and locked at 55 [...] information for follow-up [facility], [place] [address] [place] [address] Cardiac Rehab, [facility] [address] [place] [address] [place] [address] [facility], [place] [address] [place] [address] Transportation: family or friend will provide *Brother [...] Type: *No Product type* / Secondary Insurance: [employer] [place] Prescription Coverage: Yes This plan was formulated with input from patient, family (please identify family/friend involved ifapplicable) and team. All are in agreement with plan. Aliza Martino MSN-Ed, RN ACM sausage linker Office of Care Management Pager #[phone] * Plan of Care - Favian Mckeon [...] Chaudhary RN - 05/21/2023 4:46 PM EDTSummary: [facility] referral OFFICE OF CARE MANAGEMENT [...] Type: *No Product type* / Secondary Insurance: [employer] [facility] Last Physical Therapy Recommendation: (Home with [...] needs. describing our affiliations within the [facility] and educate about their right to choose where referrals are sent. provide a list of Home Health Agencies / Durable Medical Equipment vendors which serve their preferred geographic area. They have requested referrals to: [facility] [address] [place] [address] [facility] Located @ [facility] [place] Note routed to a Embroidery Finisher who will communicate referrals to facilities and provide any required information. Transportation: family or friend will provide *Brother Raymond on Tuesday 05/22 at 1000 Barriers to discharge: Does not have home 22/02 assist available until tomorrow Tuesday 05/22 Plan going forward: Discharge home into the 22/02 home care of brother Raymond with [facility] and [facility] PT/OT services on Tuesday 05/22 [...] Attending: All Staff: Staff Role Juanita Almaguer Special Warfare Operator Laure Ricks PA Physician Garbage Worker Magdalena Rodriguez solids control technician Nurse Consuelo Espinoza RN Radiology Nurse Post-operative [...] Type: *No Product type* / Secondary Insurance: [employer] [place] Last Physical Therapy Recommendation: detention facility, [...] Office of Care Management letter from the Form Maker Plaster pertaining to rehab referrals. provide a letter describing our affiliations within the [facility] and educate about their right to choose where referrals are sent. provide the CMS Star Quality Rating handout. review the different levels of rehab including SNF, swing, and acute. provide a list of facilities within their preferred geographic area. request that they provide at least three choices for referral. They have requested referrals to: [facility] [address] [place] [address] [facility] ([facility]) [address] [place] [address] (Accepts pts only after exhausting all other local SNF options) [facility] ([facility]) ([facility]) [address] [place] [address] PHONE: [phone] FAX: [phone] [facility] Benav[facility] [place] ([facility]) [facility]) [address] [place] [address] PHONE: [phone] FAX: [phone] Note routed to a Embroidery Finisher who will communicate referrals to facilities and [...] the outpatient Phase 2 Cardiac Rehabilitation at [facility]. The patient agrees to a [...] the original note were not included. [facility] NEPHROLOGY/HYPERTENSION CONSULT NOTE PATIENT: Purnima [...] in her course. She ultimately underwent a hphkz-zh-gaagf procedure on and tolerated it well (see operative details). [facility] some [...] 1423 05/12/23 1105 PHART 7.39 7.37 7.34* VCI1FWT 33* 36 42 PO2ART 101 102 73* DLO8RBR 19.5* 20.4 22.1 LACTATEVEN 1.5 1.8 2.8* GVY2XMC 40 40 40 PFRATIOART2 252 255 182 VBG (Venous Blood Gas) Recent Labs 05/12/23 1557 05/12/23 1423 05/12/23 1105 LACTATEVEN 1.5 1.8 2.8* Mixed Venous Sat Recent Labs 05/12/23 1425 05/12/23 0508 05/12/23 0321 H4GPNS4 59.9 30.7 32.7 LFT's: Recent Labs 05/14/23 0110 05/13/23 0115 05/12/23 0600 BILITOT 0.4 0.5 0.9 BILIDIR -- 0.3 -- ALBUMIN 3.6 3.0* 3.5 ALKPHOS 86 85 100 ALT 437* 903* 1,174* AST 319* 792* 1,435* No results found for: UPROTCREAT No results found for: TPROTEINPEP, ALBELECT No results found for: MICROALBUR, [id number] No results found for: HA1C Lab Results Component Value Date CALCIUM 8.5 05/14/2023 PHOS 4.7 (H) 05/08/2023 No results found for: 25OHVITD MICROBIOLOGY: ProcedureComponentValueUnitsDate/TimeUrine culture [[id number]]Collected: 05/11/231921Lab Status: Final resultSpecimen: Clean Catch UrineUpdated: [...] consulted for assessment if this patient needs LENS MAKER. Atthis time, we can likely hold off on LENS MAKER. Her volume status appears sufficient and her metabolic kanwal angements with mild acidosis is not too profound. Patient does not have significant uremic symptoms. We can hold off for today, but the patient is a high risk candidate for needing LENS MAKER in future daysespecially if her Cr curve trends the direction it is for the next several days. S/p Nqcgk-bn-Qmxzc TF TAVR: Management per cardiology. On milrinone gtt. PLAN: - Please obtain following diagnostics: renal US, urinalysis, urine prot/Cr ratio, urine albumin/Cr ratio, CK, uric acid, serum osmol, daily VBGs - No acute indications for LENS MAKER/dialysis. We will keep close eye on Cr trend, volume status, and metabolics to ensure patient still does not need LENS MAKER as she ensues intrinsic renal recovery [...] M.H.A., M.A. PGY-V Nephrology-Hypertension Fellow Page # [phone] [facility] [address] 2nd floor, Fireboat Operator [address] [place] [address] * Care Management - Mario Alberto Olmos [...] / Secondary Insurance: [facility] [place] Plan for discharge is: [...] CV at 0945. Was intubated in the animal laboratory helper due to agitation. Maintained bedrest for 5 [...] Operative Note Patient Name: Purnima Thacker : [id number] MR#: [id number] Case Date: 05/12/2023 Surgeon: Surgeon(s) and Role: [...] procedure Note: Patient Name: Purnima Thacker : [id number] MR#: [id number] Case Date: 05/12/2023 Operators Surgeon: Surgeon(s) and [...] main with 4.0 x 30 mm Resolute [place] Drug Eluting Stent Perclose x1 + Angio-seal 8 Fr x1, RFA Manual pressure, LFA Manual pressure, LFV Endotracheal intubation (performed by cardiac anesthesia) Preliminary findings: Successful right transfemoral TAVR Vahwf-ui-Gauhw with a 23 mm Lai 3 THV. [...] MD, M.Sc. Structural Heart Disease Fellow Pager :[phone] Antelmo Sharma MD Pager [phone] * Op Note - Alirio Hudson MD - 05/12/2023 7:37 AM EDT Preop Diagnosis: Severe aortic stenosis, symptomatic. Postop Diagnosis: Same. Procedure: Transfemoral TAVR procedure with 23mm valve. Surgeon: Alirio Hudson M.D. Sales Representative Wire Rope: Danny CULP Procedure: The patient was taken to the animal laboratory helper. The patient had monitored anesthesia care. 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 Safety measures in place, call monaslve within reach Problem: Adult Inpatient Plan of [...] included. [facility] [place] [address] [place] [address] STRUCTURAL HEART DISEASE CONSULTATION NOTE PRIMARY CARE [...] who had been referred for possible TAVR icknl-xk-ijyuv evaluation. Her primary symptoms are of dyspnea [...] [facility]. 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 She [...] [facility] 11/09/2022 Heart failure with reduced ejection [...] send to lab ([facility] Result Value Ref Range Lactate [...] leads Confirmed by MD Harshil, Enrique Bell ([id number]) on 05/10/2023 8:11:46 AM Assessment and Plan: [...] Antelmo Sharma MD Structural Heart Disease Pager [phone] * Plan of Care - Sarahi Nice RN - 05/10/2023 3:55 AM EDTSumcaydeny: RN Note and Care Plan Sarahi Nice RN assumed care of pt at time of their arrival to room 362 from [facility]. Pt voices shortness of breath [...] Transfer from another hospital Location: admitted from [facility] Reason for Hospitalization: Critical aortic stenosis, causing symptoms Past medical History: Past Medical History: Diagnosis Date Anemia Hospitalizations Within the Past 30 Days: no previous admission in last 30 days Current Decision-Making Capacity: Self If AD's have not been completed the following surrogate would be surrogate decision maker per [place] surrogate decision making law. (Only good for 180 days) Any patient receiving care in [place] must abide by [place] law. The hierarchy for surrogate decision making [...] DME: none Home Address confirmed as: [address] [place] [id number] Social & Family Supports: All names listed [...] Type: *No Product type* / Secondary Insurance: [employer] [facility] [place] ONLY if patient has Medicare A&B - Does this patient have secondary insurance?: Yes ; Prescription Coverage: Yes Preferred Pharmacy: updated to [facility] Status: Patient is a : No Primary Care Provider confirmed: Magdalena Acosta MD [phone] Patient/Caregiver Goals of Treatment: Potential Needs for [...] of care planning. Alie Bradshaw RN, CM Pager-[phone] * Plan of Care - Emily Lucero RN - 05/08/2023 2:54 PM EDT OUTCOME EVALUATION NOTE: OUTCOME SUMMARY: Pt arrived from [facility]. A&O, no c/o pain or [...] EST Office Visit H[place] [phone] Markel Borjas MD [facility] [place] [address] 11/02/2024 12:00 PM EDT [place] [phone] 11/02/2024 1:00 PM EDT [place] [address] Magdalena Peralta MD [facility] [place] [address] 03/01/2025 4:15 PM EDT Office Visit Dermatology at [address] [address] Marek Bonilla MD [address], [place] [address] Scheduled Referrals Name Type Priority Associated Diagnoses [...] Heart Cath W/Inj L Ventriculography, Img S&I ([id number]) 05/12/2023 7:37 AM EDT Aortic valve stenosis, [...] EST Narrative 07/08/2023 12:26 PM EST [address] [place] [address] ? Echocardiogram Report Name: PURNIMA THACKER ?Study Date: 07/08/2023 10:31 AMBP: 118/60 mmHg ? Patient Location: 4A : 1955 ? Height: 155 cm ? Account: [id number] Age: 67 yrs ? Weight: 74 kg Gender: Female ?BSA: 1.7 m2 Ordering Physician: ALIRIO HUDSON Referring Physician: VINOD JUÁREZ Performed By: Felicia Norris RDCS Reason For Study: S/P TAVR Exam Location: [facility]. Interpretation Summary Left ventricular systolic [...] no significant change (post-procedure). Procedure Limited - 62822. Doppler - 54052. Color Doppler - 95112. Satisfactory quality. This study is limited because [...] Note Lee Kincaid MD - 07/08/2023 [address] [place] [address] Echocardiogram Report Name: PURNIMA THACKER Study Date: 310:31 AMBP: 118/60 mmHg Patient Location: 4A : 1955 Height: 155 cm Account: [id number] Age: 67 yrs Weight: 74 kg Gender: Female BSA: 1.7 m2 Ordering Physician: ALIRIO HUDSON Referring Physician: VINOD JUÁREZ Performed By: Felicia Norris RDCS Reason For Study: S/P TAVR Exam Location: [facility]. Interpretation Summary Left ventricular systolic [...] is nosignificant change (post-procedure). Procedure Limited - 39967. Doppler - 12669. Color Doppler - 19807. Satisfactoryquality. This study is limited because of [...] LABORATORY Creatinine 0.81 0.70 - 1.20 mg/dL [facility] HOSPITAL LABORATORY Sodium 142 135 - [...] LABORATORY Calcium 10.2 8.5 - 10.5 mg/dL [facility] Protein, Total 7.4 6.1 - 8.0 g/dL [facility] Albumin 4.1 3.2 - 5.2 g/dL [facility] Aspartate Aminotransferase 24 0 - 30 unit/L [facility] Alanine Aminotransferase 12 0 - 30 unit/L [facility] Alkaline Phosphatase 93 35 [...] Lab Alirio Hudson MD CHEMISTRY ORDERABLE S [facility] [place] [address] * (ABNORMAL) Basic Metabolic Panel (non-fasting) (05/22/2023 3:57 AM EDT) Glucose 88 65 - 199 mg/dL [facility] Comment:Diabetes: >=200 mg/d L plus symptoms Blood Urea Nitrogen 21(H) 8 - 18 mg/dL [facility] Creatinine 0.69(L) 0.70 - 1.20 mg/dL [facility] Sodium 136 135 - 145 mmol/L [facility] Potassium 3.6 3.5 - 5.0 mmol/L [facility] Comment: Please note: ??Patients with WBC >100,000 may have falsely elevated Potassium levels. ??For accurate Potassium quantification in these patients send serum separator tube (gold top) for subsequent determinations. ??Contact the Clinical Chemistry Laboratory if there are any questions. Chloride 102 98 - 107 mmol/L [facility] Carbon Dioxide 23 22 - 31 mmol/L [facility] Anion Gap 11 5 - 15 mmol/L [facility] Calcium 8.6 8.5 - 10.5 mg/dL [facility] Est Glomerular Filtration Rate 95 >=60 mL/min/1. 73 m?? [facility] [...] Resulting Agency Comment Spec In Lab Mara Cleveland [employer] CHEMISTRY ORDERABL ES [facility] [place] [address] * (ABNORMAL) Basic Metabolic Panel (non-fasting) (05/21/2023 5:06 AM EDT) Glucose 87 65 - 199 mg/dL [facility] Comment:Diabetes: >=200 mg/d L plus symptoms Blood Urea Nitrogen 25(H) 8 - 18 mg/dL [facility] Creatinine 0.84 0.70 - 1.20 mg/dL [facility] Sodium 136 135 - 145 mmol/L [facility] Potassium 3.6 3.5 - 5.0 mmol/L [facility] Comment: Please note: ??Patients with WBC >100,000 may have falsely elevated Potassium levels. ??For accurate Potassium quantification in these patients send serum separator tube (gold top) for subsequent determinations. ??Contact the Clinical Chemistry Laboratory if there are any questions. Chloride 102 98 - 107 mmol/L [facility] Carbon Dioxide 26 22 - 31 mmol/L [facility] Anion Gap 8 5 - 15 mmol/L [facility] Calcium 8.9 8.5 - 10.5 mg/dL [facility] Est Glomerular Filtration Rate 76 >=60 mL/min/1. 73 m?? [facility] [...] Comment Spec In Lab [facility] [employer] CHEMISTRY ORDERABL ES Performing Organization Address [facility] Co de Phone Number [facility] [place] [address] * Lavender Tube HOLD (05/20/2023 2:52 AM EDT) Lavender Hold Sample in lab. [facility] Blood Venous Draw / Unknown 05/20/2023 2:52 AM EDT 05/20/2023 3:04 AM EDT [facility] [employer] HEMATOLOGY ORDERAB LES Performing Organization Address City/[facility]/ZIP Co de Phone Number [facility] [place] [address] * (ABNORMAL) Basic Metabolic Panel (non-fasting) (05/20/2023 2:52 AM EDT) Glucose 152 65 - 199 mg/dL [facility] Comment:Diabetes: >=200 mg/d L plus symptoms Blood Urea Nitrogen 33(H) 8 - 18 mg/dL [facility] Creatinine 0.82 0.70 - 1.20 mg/dL [facility] Sodium 137 135 - 145 mmol/L [facility] Potassium 3.7 3.5 - 5.0 mmol/L [facility] Comment: Please note: ??Patients with WBC >100,000 may have falsely elevated Potassium levels. ??For accurate Potassium quantification in these patients send serum separator tube (gold top) for subsequent determinations. ??Contact the Clinical Chemistry Laboratory if there are any questions. Chloride 99 98 - 107 mmol/L [facility] Carbon Dioxide 22 22 - 31 mmol/L [facility] Anion Gap 16(H) 5 - 15 mmol/L [facility] Calcium 9.0 8.5 - 10.5 mg/dL [facility] Est Glomerular Filtration Rate 78 >=60 mL/min/1. 73 m?? [facility] [...] Agency Comment Spec In Lab Mara Serrano [employer] CHEMISTRY ORDERABL ES [facility] [place] [address] * (ABNORMAL) Potassium (05/20/2023 2:52 AM EDT) Potassium 3.4(L) 3.5 - 5.0 mmol/L [facility] [...] Agency Comment Spec In Lab Mara Serrano [employer] CHEMISTRY ORDERABL ES [facility] [place] [address] * XR Chest PA & Lateral (Generic) [...] questions please contact the health child care associate that requested your imaging first. [...] have questions please contactthe health child care associate that requested your imaging first. Alirio Hudson MD IMG DX ORDERABLES * (ABNORMAL) Basic Metabolic Panel (non-fasting) (05/19/2023 5:49 AM EDT) Glucose 93 65 - 199 mg/dL [facility] Comment:Diabetes: >=200 mg/d L plus symptoms Blood Urea Nitrogen 45(H) 8 - 18 mg/dL [facility] Creatinine 1.02 0.70 - 1.20 mg/dL [facility] Sodium 138 135 - 145 mmol/L [facility] Potassium 3.9 3.5 - 5.0 mmol/L [facility] Comment: Please note: ??Patients with WBC >100,000 may have falsely elevated Potassium levels. ??For accurate Potassium quantification in these patients send serum separator tube (gold top) for subsequent determinations. ??Contact the Clinical Chemistry Laboratory if there are any questions. Chloride 102 98 - 107 mmol/L [facility] Carbon Dioxide 26 22 - 31 mmol/L [facility] Anion Gap 10 5 - 15 mmol/L [facility] Calcium 9.7 8.5 - 10.5 mg/dL [facility] Est Glomerular Filtration Rate 60 >=60 mL/min/1. 73 m?? [facility] [...] Agency Comment Spec In Lab Mara Serrano [employer] CHEMISTRY ORDERABL ES [facility] [place] [address] * IR Chest Tube Placement Right (05/18/2023 [...] Kristopher Salgado MD 05/18/2023 Alirio Hudson MD [facility] [place] ORDERABLES * (ABNORMAL) Basic Metabolic Panel (non-fasting) (05/18/2023 2:54 AM EDT) Glucose 95 65 - 199 mg/dL [facility] Comment:Diabetes: >=200 mg/d L plus symptoms Blood Urea Nitrogen 71(H) 8 - 18 mg/dL [facility] Comment:result rechecked-[facility] Creatinine 1.64(H) 0.70 - 1.20 mg/dL [facility] Comment:result rechecked-[facility] Sodium 137 135 - 145 mmol/L [facility] Potassium 3.7 3.5 - 5.0 mmol/L [facility] Comment: Please note: ??Patients with WBC >100,000 may have falsely elevated Potassium levels. ??For accurate Potassium quantification in these patients send serum separator tube (gold top) for subsequent determinations. ??Contact the Clinical Chemistry Laboratory if there are any questions. Chloride 100 98 - 107 mmol/L [facility] Carbon Dioxide 24 22 - 31 mmol/L [facility] Anion Gap 13 5 - 15 mmol/L [facility] Calcium 9.7 8.5 - 10.5 mg/dL [facility] Est Glomerular Filtration Rate 34(L) >=60 mL/min/1. 73 m?? [facility] Comment: This patient's estimated [...] Agency Comment Spec In Lab Mara Maggie [employer] CHEMISTRY ORDERABL ES [facility] [place] [address] * XR Chest PA & Lateral (Generic) [...] questions please contact the health child care associate that requested your imaging first. ? Electronically signed by: Ghassan Reyes MD, [facility] ??([phone]), at 05/17/2023 11:46 AM Narrative 05/17/2023 11:46 [...] have questions please contactthe health child care associate that requested your imaging first. Electronically signed by: Ghassan Reyes MD, [facility]([phone]), at 05/17/2023 11:46 AM Alirio Hudson MD IMG DX ORDERABLES * (ABNORMAL) Comprehensive metabolic panel (non-fasting) (05/17/2023 4:35 AM EDT) Glucose 89 65 - 199 mg/dL [facility] Comment:Diabetes: >=200 mg/d L plus symptoms Blood Urea Nitrogen 97(H) 8 - 18 mg/dL [facility] Creatinine 2.97(H) 0.70 - 1.20 mg/dL [facility] Comment:result rechecked-JSJ Sodium 135 135 - 145 mmol/L [facility] Potassium 4.1 3.5 - 5.0 mmol/L [facility] Comment: Please note: ??Patients with WBC >100,000 may have falsely elevated Potassium levels. ??For accurate Potassium quantification in these patients send serum separator tube (gold top) for subsequent determinations. ??Contact the Clinical Chemistry Laboratory if there are any questions. Chloride 97(L) 98 - 107 mmol/L [facility] Carbon Dioxide 22 22 - 31 mmol/L [facility] Anion Gap 16(H) 5 - 15 mmol/L [facility] Calcium 9.6 8.5 - 10.5 mg/dL [facility] Protein, Total 6.5 6.1 - 8.0 g/dL [facility] Albumin 3.7 3.2 - 5.2 g/dL [facility] Aspartate Aminotransferase 58(H) 0 - 30 unit/L [facility] Alanine Aminotransferase 66(H) 0 - 30 unit/L [facility] Alkaline Phosphatase 86 35 - 105 unit/L [facility] Bilirubin, Total 0.6 0.2 - 1.3 mg/dL [facility] Est Glomerular Filtration Rate 17(L) >=60 mL/min/1. 73 m?? [facility] [...] MD CHEMISTRY ORDERABLE S Performing Organization Address [facility] Co de Phone Number [facility] [place] [address] * Potassium (05/16/2023 11:15 PM EDT) Potassium 3.7 3.5 - 5.0 mmol/L [facility] [...] MD CHEMISTRY ORDERABLE S Performing Organization Address [facility] Co de Phone Number [facility] [place] [address] * Magnesium (05/16/2023 5:22 PM EDT) Pathologist [facility] [place] Magnesium 0.96 0.69 - 1.07 mmol/L [facility] Blood 05/16/2023 5:22 PM EDT 05/16/2023 5:27 PM EDT Narrative Resulting Agency Comment Spec In Lab Alirio Hudson MD CHEMISTRY ORDERABLE S Performing Organization Address [facility] Co de Phone Number [facility] [place] [address] * (ABNORMAL) Basic Metabolic Panel (non-fasting) (05/16/2023 5:22 PM EDT) Glucose 106 65 - 199 mg/dL [facility] Comment:Diabetes: >=200 mg/d L plus symptoms Blood Urea Nitrogen 103(H) 8 - 18 mg/dL [facility] Creatinine 3.91(H) 0.70 - 1.20 mg/dL [facility] Comment:result rechecked-imm Sodium 132(L) 135 - 145 mmol/L [facility] Potassium 3.6 3.5 - 5.0 mmol/L [facility] Comment: Please note: ??Patients with WBC >100,000 may have falsely elevated Potassium levels. ??For accurate Potassium quantification in these patients send serum separator tube (gold top) for subsequent determinations. ??Contact the Clinical Chemistry Laboratory if there are any questions. Chloride 92(L) 98 - 107 mmol/L [facility] Carbon Dioxide 22 22 - 31 mmol/L [facility] Anion Gap 18(H) 5 - 15 mmol/L [facility] Calcium 9.7 8.5 - 10.5 mg/dL [facility] Est Glomerular Filtration Rate 12(L) >=60 mL/min/1. 73 m?? [facility] [...] Lab Alirio Hudson MD CHEMISTRY ORDERABLE S [facility] [place] [address] * (ABNORMAL) Potassium (05/16/2023 11:43 AM EDT) Potassium 3.3(L) 3.5 - 5.0 mmol/L [facility] [...] Lab Alirio Hudson MD CHEMISTRY ORDERABLE S [facility] [place] [address] * (ABNORMAL) Ferritin (05/16/2023 4:41 AM EDT) Pathologist [facility] [place] Ferritin 1,813(H) 30 - 400 ng/mL [facility] Comment: Pediatric reference ranges not verified at [facility], interpret with caution. Reference ranges for females greater than 50 years of age approach values for men, i.e., 30-400 ng/mL. Blood 05/16/2023 4:41 AM EDT 05/16/2023 4:54 AM EDT Narrative Resulting Agency Comment Spec In Lab Kristopher Ayoub MD CHEMISTRY ORDERABLES [facility] [place] [address] * (ABNORMAL) PTH (05/16/2023 4:41 AM EDT) [facility] Parathyroid Hormone 120(H) 15 - 65 pg/mL [facility] Blood 05/16/2023 4:41 AM EDT 05/16/2023 4:54 AM EDT Narrative Resulting Agency Comment Spec In Lab Kristopher Ayoub MD CHEMISTRY ORDERABLES [facility] [place] [address] * Vitamin D, 25-Hydroxy (05/16/2023 4:41 AM EDT) [facility] Vitamin D Total 25 OH 33 21 - 100 ng/mL [facility] Vit D Interp Sufficient [facility] Blood 05/16/2023 4:41 AM EDT 05/16/2023 4:54 AM EDT Narrative Resulting Agency Comment Spec In Lab Kristopher Ayoub MD CHEMISTRY ORDERABLES [facility] [place] [address] * (ABNORMAL) Blood Gas Venous ([facility]) (05/16/2023 4:22 AM EDT) pH, Venous 7.41 7.32 - 7.42 [facility] PCO2, Venous 32(L) 41 - 51 mmHg [facility] PO2, Venous 73(H) 25 - 40 mmHg [facility] Bicarbonate, Venous 19.6 mmol/L [facility] Base Excess, Venous -5.1 mmol/L [facility] Hgb Blood Gas 9.7(L) 11.7 - 15.5 g/dL [facility] Oxyhemoglobin, Venous 92.8 % [facility] Carboxyhemoglob in, Venous 0.1 % [facility] Comment: Nonsmokers: 0.5-1.5% COHB Smokers: Variable, but usually less than 10% Toxic: 20-30% COHB Lethal: Greater than 60% COHB Methemoglobin, Venous 0.3 <=1.5 % [facility] Na Whole Blood 130(L) 135 - 145 mmol/L [facility] K Whole Blood 3.7 3.5 - 5.0 mmol/L [facility] Comment: Please note: Patients with WBC >100,000 may have falsely elevated Potassium levels. Contact the Clinical Chemistry Laboratory if there are any questions. ICa Whole Blood 1.15 1.15 - 1.33 mmol/L [facility] Comment: Note: ??Total bilirubin higher than 20 mg/dL may lead to falsely low ionized calcium. CL Whole Blood 95(L) 98 - 107 mmol/L [facility] Gluc Whole Bld 82 65 - 199 mg/dL [facility] Comment:Diabetes: >=200 mg/d L plus symptoms Lactate WB 1.1 0.5 - 2.2 mmol/L [facility] Blood Gas Source Venous [facility] Blood Venous Draw / Unknown 05/16/2023 4:22 AM EDT 05/16/2023 4:31 AM EDT Narrative Resulting Agency Comment Spec In Lab Bonita TOBAR CHEMISTRY ORDERABLES [facility] [place] [address] * (ABNORMAL) Differential, Automated (05/16/2023 4:20 AM EDT) Neutrophil % 84.1 % [facility] Neutrophil Absolute 6.22(H) 1.70 - 6.10 x10(3)/mc L [facility] Lymph % 5.8 % [facility] Lymphocytes Abs 0.4(L) 0.9 - 3.2 x10(3)/mc L [facility] Monocyte % 8.8 % [facility] Monocyte Abs 0.6 0.3 - 0.9 x10(3)/mc L [facility] Eos % 0.4 % [facility] Eosinophils Abs 0.0 0.0 - 0.4 x10(3)/mc L [facility] Basophil % 0.0 % [facility] Baso Absolute 0.0 0.0 - 0.1 x10(3)/mc L [facility] Immature Gran % 0.90 % [facility] Comment: Immature granulocytes(IG's)percentage and absolute count will include metamyelocytes, myelocytes, and promyelocytes. Blood smears from CBCs yielding IG's will be scanned manually for concordance. If this scan disagrees with the automated IG or if promyelocytes are noted, a manual differential will be performed. Immature Gran Absolute 0.07(H) 0.00 - 0.04 x10(3)/mc L [facility] Blood 05/16/2023 4:20 AM EDT 05/16/2023 4:29 AM EDT Narrative Resulting Agency Comment Spec In Lab James Agustin MD HEMATOLOGY ORDER JODIE Performing Organization Address City/[facility]/ZIP Co de Phone Number [facility] [place] [address] * (ABNORMAL) Hemogram (05/16/2023 4:20 AM EDT) White Blood Cell 7.4 4.0 - 9.5 x10(3)/mc L [facility] Red Blood Cell 2.40(L) 4.00 - 5.21 x10(6)/mc L [facility] Hemoglobin 7.8(L) 11.7 - 15.5 g/dL [facility] Hematocrit 22.5(L) 35.7 - 45.8 % [facility] Mean Cell Volume 93.8 82.6 - 94.4 fL [facility] Mean Cell Hemoglobin 32.5(H) 27.1 - 32.0 pg [facility] Mean Cell Hemoglobin Concentration 34.7 31.7 - 35.0 g/dL [facility] Platelet 120(L) 145 - 357 x10(3)/mc L [facility] RDW Standard Deviation 42.9 37.0 - 46.0 fL [facility] RDW coefficient of variation 12.9 11.5 - 14.1 % [facility] Mean Platelet Volume 11.3 7.6 - 12.9 fL [facility] NRBC% auto 0.7 % [facility] NRBC Absolute 0.050(H) 0.000 - 0.000 x10(3)/ L [facility] Blood 05/16/2023 4:20 AM EDT 05/16/2023 4:29 AM EDT Narrative Resulting Agency Comment Spec In Lab James Agustin MD HEMATOLOGY ORDER JODIE [facility] [place] [address] * (ABNORMAL) Basic Metabolic Panel (non-fasting) (05/16/2023 4:20 AM EDT) Glucose 89 65 - 199 mg/dL [facility] Comment:Diabetes: >=200 mg/d L plus symptoms Blood Urea Nitrogen 108(H) 8 - 18 mg/dL [facility] Creatinine 4.74(H) 0.70 - 1.20 mg/dL [facility] Comment:result rechecked-OLIVA Sodium 132(L) 135 - 145 mmol/L [facility] Potassium 3.9 3.5 - 5.0 mmol/L [facility] Comment: Please note: ??Patients with WBC >100,000 may have falsely elevated Potassium levels. ??For accurate Potassium quantification in these patients send serum separator tube (gold top) for subsequent determinations. ??Contact the Clinical Chemistry Laboratory if there are any questions. Chloride 95(L) 98 - 107 mmol/L [facility] Carbon Dioxide 18(L) 22 - 31 mmol/L [facility] Anion Gap 19(H) 5 - 15 mmol/L [facility] Calcium 9.2 8.5 - 10.5 mg/dL [facility] Est Glomerular Filtration Rate 10(L) >=60 mL/min/1. 73 m?? [facility] [...] Lab Alirio Hudson MD CHEMISTRY ORDERABLE S [facility] [place] [address] * (ABNORMAL) Iron and TIBC (05/16/2023 4:20 AM EDT) Iron 31 30 - 150 mcg/dL [facility] TIBC 259 250 - 450 mcg/dL [facility] Iron Saturation 12(L) 20 - 50 % [facility] Blood 05/16/2023 4:20 AM EDT 05/16/2023 4:29 AM EDT Narrative Resulting Agency Comment Spec In Lab Kristopher Ayoub MD CHEMISTRY ORDERABLES [facility] [place] [address] * (ABNORMAL) Basic Metabolic Panel (non-fasting) (05/15/2023 12:50 AM EDT) Glucose 101 65 - 199 mg/dL [facility] Comment:Diabetes: >=200 mg/d L plus symptoms Blood Urea Nitrogen 109(H) 8 - 18 mg/dL [facility] Creatinine 5.62(H) 0.70 - 1.20 mg/dL [facility] Comment:result rechecked-KS Sodium 131(L) 135 - 145 mmol/L [facility] Comment:result rechecked-KS Potassium 3.7 3.5 - 5.0 mmol/L [facility] Comment: result rechecked-KS Please note: ??Patients with WBC >100,000 may have falsely elevated Potassium levels. ??For accurate Potassium quantification in these patients send serum separator tube (gold top) for subsequent determinations. ??Contact the Clinical Chemistry Laboratory if there are any questions. Chloride 92(L) 98 - 107 mmol/L [facility] Comment:result rechecked-[place] Carbon Dioxide 18(L) 22 - 31 mmol/L [facility] Comment:result rechecked-[place] Anion Gap 21(H) 5 - 15 mmol/L [facility] Calcium 8.9 8.5 - 10.5 mg/dL [facility] Est Glomerular Filtration Rate 8(L) >=60 mL/min/1. 73 m?? [facility] [...] Address City/[facility]/ZIP Co de Phone Number [facility] [place] [address] * (ABNORMAL) Hemogram (05/15/2023 12:50 AM EDT) White Blood Cell 9.1 4.0 - 9.5 x10(3)/mc L [facility] Red Blood Cell 2.19(L) 4.00 - 5.21 x10(6)/mc L [facility] Hemoglobin 7.2(L) 11.7 - 15.5 g/dL [facility] Hematocrit 20.6(L) 35.7 - 45.8 % [facility] Mean Cell Volume 94.1 82.6 - 94.4 fL [facility] Mean Cell Hemoglobin 32.9(H) 27.1 - 32.0 pg [facility] Mean Cell Hemoglobin Concentration 35.0 31.7 - 35.0 g/dL [facility] Platelet 109(L) 145 - 357 x10(3)/mc L [facility] RDW Standard Deviation 43.6 37.0 - 46.0 fL [facility] RDW coefficient of variation 12.9 11.5 - 14.1 % [facility] Mean Platelet Volume 10.4 7.6 - 12.9 fL [facility] NRBC% auto 2.1 % [facility] NRBC Absolute 0.190(H) 0.000 - 0.000 x10(3)/mc L [facility] Blood 05/15/2023 12:5 0 AM EDT 05/15/2023 12:52 AM EDT Narrative Resulting Agency Comment Spec In Lab Alirio Hudson MD HEMATOLOGY ORDERABL ES Performing Organization Address [facility] Co de Phone Number [facility] [place] [address] * (ABNORMAL) BLOOD GAS 2 VENOUS (05/15/2023 12:49 AM EDT) pH, Venous 7.33 7.32 - 7.42 [facility] PCO2, Venous 37(L) 41 - 51 mmHg [facility] PO2, Venous 34 25 - 40 mmHg [facility] Bicarbonate, Venous 19.1 mmol/L [facility] Base Excess, Venous -6.8 mmol/L [facility] Hgb Blood Gas 10.8(L) 11.7 - 15.5 g/dL [facility] Oxyhemoglobin, Venous 58.1 % [facility] Carboxyhemoglob in, Venous 0.3 % [facility] Comment: Nonsmokers: 0.5-1.5% COHB Smokers: Variable, but usually less than 10% Toxic: 20-30% COHB Lethal: Greater than 60% COHB Methemoglobin, Venous 0.6 <=1.5 % [facility] Na Whole Blood 136 135 - 145 mmol/L [facility] K Whole Blood 3.7 3.5 - 5.0 mmol/L [facility] Comment: Please note: Patients with WBC >100,000 may have falsely elevated Potassium levels. Contact the Clinical Chemistry Laboratory if there are any questions. ICa Whole Blood 1.12(L) 1.15 - 1.33 mmol/L [facility] Comment: Note: ??Total bilirubin higher than 20 mg/dL may lead to falsely low ionized calcium. CL Whole Blood 95(L) 98 - 107 mmol/L [facility] Gluc Whole Bld 101 65 - 199 mg/dL [facility] Comment:Diabetes: >=200 mg/d L plus symptoms Lactate WB 1.3 0.5 - 2.2 mmol/L [facility] Flow, Mike 1.0 LPM [facility] Blood Gas Source Venous [facility] Blood 05/15/2023 12:4 9 AM EDT 05/15/2023 12:49 AM EDT Alirio Hudson MD POINT OF CARE TEST ORDERABLES [facility] [address] [place] [address] * US Retroperitoneal Complete (05/14/2023 3:53 PM [...] Hayden Robledo MD, [facility] ([phone]), at 05/14/2023 4:32 PM Thank you for letting us participate in the care of this patient. If you are a health care provider and have any questions regarding this report, please contact the number above. For patients who have questions, please contact the health child care associate that requested your imaging first. ? Hayden Robledo, Staff Physician Electronically Signed Final Report ?? 05/14/2023 04:39 pm Narrative 05/14/2023 4:39 PM EDT Renal ? (Signed Final 05/14/2023 04:39 pm) PATIENT INFO: ID #: ? [id number] ?: ??55 (67 yrs)(F) Name: ? PURNIMA Magalie KIRSTIE ?Visit Date: 05/14/2023 03:44 pm PERFORMED BY: Attending: ?Meena CULP, Hayden Stafford Resident: ? Barnacle MD, Anand D. Performed By: ? [place] RDMS, Consuelo Referred By: ?ALIRIO HUDSON Location: ? [place] SERVICE(S) PROVIDED: URETRO - Retroperitoneal Complete - [id number] ? [id number] INDICATIONS: EVANS COMPARISON: CT: Abdomen/Pelvis 05/11/23 RIGHT [...] 05/14/2023 04:39 pm) PATIENT INFO: ID #: [id number] : 55 (67 yrs)(F) Name: PURNIMA THACKER Visit Date: 05/14/2023 03:44 pm PERFORMED BY: Attending: Hayden Robledo MD Resident: Anand Camejo MD Performed By: Consuelo Tello RDMS Referred By: ALIRIO HUDSON Location: [place] SERVICE(S) PROVIDED: URETRO - Retroperitoneal Complete - [id number] INDICATIONS: EVANS COMPARISON: CT: Abdomen/Pelvis 05/11/23 RIGHT [...] Hayden Robledo MD, [facility] ([phone]), at 05/14/2023 4:32 PM Thank you for letting us participate in the care of this patient. If you are a health care provider and have any questions regarding this report, please contact the number above. For patients who have questions, please contact the health child care associate that requested your imaging first. Hayden Robledo, Staff Physician Electronically Signed Final Report 05/14/2023 04:39 pm Alirio Hudson MD IMG US GEN ORDERABL ES * CK (05/14/2023 3:17 PM EDT) Creatine Kinase 123 0 - 160 unit/L [facility] Blood 05/14/2023 3:17 PM EDT 05/14/2023 3:31 PM EDT Narrative Resulting Agency Comment Spec In Lab Alirio Hudson MD CHEMISTRY ORDERABLE S Performing Organization Address [facility] Co de Phone Number [facility] [place] [address] * (ABNORMAL) Uric acid (05/14/2023 3:17 PM EDT) Uric Acid 14.9(H) 2.5 - 6.5 mg/dL [facility] Blood 05/14/2023 3:17 PM EDT 05/14/2023 3:31 PM EDT Narrative Resulting Agency Comment Spec In Lab Alirio Hudson MD CHEMISTRY ORDERABLE S Performing Organization Address [facility] Co de Phone Number [facility] [place] [address] * (ABNORMAL) Osmolality (05/14/2023 3:17 PM EDT) Osmolality 311(H) 275 - 295 mOsm/kg [facility] Blood 05/14/2023 3:17 PM EDT 05/14/2023 3:31 PM EDT Narrative Resulting Agency Comment Spec In Lab Alirio Hudson MD CHEMISTRY ORDERABLE S [facility] [place] [address] * (ABNORMAL) Differential, Automated (05/14/2023 1:10 AM EDT) Neutrophil % 87.2 % [facility] Neutrophil Absolute 9.74(H) 1.70 - 6.10 x10(3)/mc L [facility] Lymph % 3.9 % [facility] Lymphocytes Abs 0.4(L) 0.9 - 3.2 x10(3)/mc L [facility] Monocyte % 7.9 % [facility] Monocyte Abs 0.9 0.3 - 0.9 x10(3)/mc L [facility] Eos % 0.0 % [facility] Eosinophils Abs 0.0 0.0 - 0.4 x10(3)/mc L [facility] Basophil % 0.1 % [facility] Baso Absolute 0.0 0.0 - 0.1 x10(3)/mc L [facility] Immature Gran % 0.90 % [facility] Comment: Immature granulocytes(IG's)percentage and absolute count will include metamyelocytes, myelocytes, and promyelocytes. Blood smears from CBCs yielding IG's will be scanned manually for concordance. If this scan disagrees with the automated IG or if promyelocytes are noted, a manual differential will be performed. Immature Gran Absolute 0.10(H) 0.00 - 0.04 x10(3)/mc L [facility] Blood 05/14/2023 1:10 AM EDT 05/14/2023 1:24 AM EDT Narrative Resulting Agency Comment Spec In Lab Bonita TOBAR HEMATOLOGY ORDERABLE S [facility] [place] [address] * (ABNORMAL) Hemogram (05/14/2023 1:10 AM EDT) White Blood Cell 11.2(H) 4.0 - 9.5 x10(3)/mc L [facility] Red Blood Cell 2.19(L) 4.00 - 5.21 x10(6)/mc L [facility] Hemoglobin 7.2(L) 11.7 - 15.5 g/dL [facility] Hematocrit 20.3(L) 35.7 - 45.8 % [facility] Mean Cell Volume 92.7 82.6 - 94.4 fL [facility] Mean Cell Hemoglobin 32.9(H) 27.1 - 32.0 pg [facility] Mean Cell Hemoglobin Concentration 35.5(H) 31.7 - 35.0 g/dL [facility] Platelet 112(L) 145 - 357 x10(3)/mc L [facility] RDW Standard Deviation 41.4 37.0 - 46.0 fL [facility] RDW coefficient of variation 12.5 11.5 - 14.1 % [facility] Mean Platelet Volume 10.4 7.6 - 12.9 fL [facility] NRBC% auto 1.5 % [facility] NRBC Absolute 0.170(H) 0.000 - 0.000 x10(3)/mc L [facility] Blood 05/14/2023 1:10 AM EDT 05/14/2023 1:24 AM EDT Narrative Resulting Agency Comment Spec In Lab Bonita TOBAR HEMATOLOGY ORDERABLE S [facility] [place] [address] * (ABNORMAL) Comprehensive metabolic panel (non-fasting) (05/14/2023 1:10 AM EDT) Glucose 120 65 - 199 mg/dL [facility] Comment:Diabetes: >=200 mg/d L plus symptoms Blood Urea Nitrogen 98(H) 8 - 18 mg/dL [facility] Creatinine 4.80(H) 0.70 - 1.20 mg/dL [facility] Comment:result rechecked-ssc Sodium 132(L) 135 - 145 mmol/L [facility] Potassium 4.1 3.5 - 5.0 mmol/L [facility] Comment: Please note: ??Patients with WBC >100,000 may have falsely elevated Potassium levels. ??For accurate Potassium quantification in these patients send serum separator tube (gold top) for subsequent determinations. ??Contact the Clinical Chemistry Laboratory if there are any questions. Chloride 94(L) 98 - 107 mmol/L [facility] Carbon Dioxide 18(L) 22 - 31 mmol/L [facility] Anion Gap 20(H) 5 - 15 mmol/L [facility] Calcium 8.5 8.5 - 10.5 mg/dL [facility] Protein, Total 5.8(L) 6.1 - 8.0 g/dL [facility] Albumin 3.6 3.2 - 5.2 g/dL [facility] Aspartate Aminotransferase 319(H) 0 - 30 unit/L [facility] Alanine Aminotransferase 437(H) 0 - 30 unit/L [facility] Alkaline Phosphatase 86 35 - 105 unit/L [facility] Bilirubin, Total 0.4 0.2 - 1.3 mg/dL [facility] Est Glomerular Filtration Rate 9(L) >=60 mL/min/1. 73 m?? [facility] [...] MD CHEMISTRY ORDERABLE S Performing Organization Address [facility] Co de Phone Number [facility] [place] [address] * APTT (05/13/2023 10:15 AM EDT) Partial Thromboplastin Time 27 25 - 37 sec [facility] Comment: The PTT is NOT appropriate for heparin monitoring. Use the Anti-Xa level for heparin monitoring (HEP UFH) or LMWH monitoring (HEP LMW). A PTT less than 37 seconds generally indicates adequate hemostasis. Blood 05/13/2023 10:1 5 AM EDT 05/13/2023 10:46 AM EDT Narrative Resulting Agency Comment Spec In Lab Alirio Hudson MD HEMATOLOGY ORDERABL ES Performing Organization Address [facility] Co de Phone Number [facility] [place] [address] * (ABNORMAL) Prothrombin Time (05/13/2023 10:15 AM EDT) Prothrombin Time 14.6(H) 9.4 - 12.5 sec [facility] International Normalization Ratio 1.3 [facility] Comment: An INR <2.0 [...] MD HEMATOLOGY ORDERABL ES Performing Organization Address [facility] Co de Phone Number [facility] [place] [address] * EKG 12 Lead (05/13/2023 9:22 AM EDT) Ventricular rate 92 BPM MUSE SYSTEM Atrial Rate 92 BPM MUSE SYSTEM P-R Interval 140 ms MUSE SYSTEM QRS Duration 104 ms MUSE SYSTEM Q-T Interval 384 ms MUSE SYSTEM QTC Calculated (Bezet) 474 ms MUSE SYSTEM Calculated P [place] 33 degrees MUSE SYSTEM Calculated R [place] 41 degrees MUSE SYSTEM Calculated T [place] -35 degrees MUSE SYSTEM INTERPRETATION Sinus rhythm with frequent Premature ventricular complexes Septal infarct , age undetermined ST & T wave abnormality, consider lateral ischemia Abnormal ECG When compared with ECG of 12-MAY-2023 10:10, Premature ventricular complexes are now Present I personally reviewed the tracing and edited the fellows interpretation Confirmed by fellow MD Anitha, Carissa ([id number]) on 05/13/2023 3:25:30 PM Confirmed by Maxx Best ([id number]) on 05/13/2023 8:30:56 PM MUSE SYSTEM 05/13/2023 9:22 AM EDT 05/13/2023 8:30 PM EDT Alirio Hudson MD ECG ORDERABLES MUSE SYSTEM * (ABNORMAL) Differential, Automated (05/13/2023 1:15 AM EDT) Neutrophil % 88.1 % [facility] Neutrophil Absolute 7.62(H) 1.70 - 6.10 x10(3)/mc L [facility] Lymph % 3.1 % [facility] Lymphocytes Abs 0.3(L) 0.9 - 3.2 x10(3)/mc L [facility] Monocyte % 7.9 % [facility] Monocyte Abs 0.7 0.3 - 0.9 x10(3)/mc L [facility] Eos % 0.0 % [facility] Eosinophils Abs 0.0 0.0 - 0.4 x10(3)/mc L [facility] Basophil % 0.1 % [facility] Baso Absolute 0.0 0.0 - 0.1 x10(3)/mc L [facility] Immature Gran % 0.80 % [facility] Comment: Immature granulocytes(IG's)percentage and absolute count will include metamyelocytes, myelocytes, and promyelocytes. Blood smears from CBCs yielding IG's will be scanned manually for concordance. If this scan disagrees with the automated IG or if promyelocytes are noted, a manual differential will be performed. Immature Gran Absolute 0.07(H) 0.00 - 0.04 x10(3)/mc L [facility] Blood 05/13/2023 1:15 AM EDT 05/13/2023 1:29 AM EDT Narrative Resulting Agency Comment Spec In Lab Lorri TOBAR HEMATOLOGY ORDERABLE S [facility] [place] [address] * (ABNORMAL) Hemogram (05/13/2023 1:15 AM EDT) White Blood Cell 8.6 4.0 - 9.5 x10(3)/mc L [facility] Red Blood Cell 2.37(L) 4.00 - 5.21 x10(6)/mc L [facility] Hemoglobin 7.8(L) 11.7 - 15.5 g/dL [facility] Hematocrit 22.2(L) 35.7 - 45.8 % [facility] Mean Cell Volume 93.7 82.6 - 94.4 fL [facility] Mean Cell Hemoglobin 32.9(H) 27.1 - 32.0 pg [facility] Mean Cell Hemoglobin Concentration 35.1(H) 31.7 - 35.0 g/dL [facility] Platelet 130(L) 145 - 357 x10(3)/mc L [facility] RDW Standard Deviation 41.7 37.0 - 46.0 fL [facility] RDW coefficient of variation 12.5 11.5 - 14.1 % [facility] Mean Platelet Volume 10.2 7.6 - 12.9 fL [facility] NRBC% auto 0.5 % [facility] NRBC Absolute 0.040(H) 0.000 - 0.000 x10(3)/mc L [facility] Blood 05/13/2023 1:15 AM EDT 05/13/2023 1:29 AM EDT Narrative Resulting Agency Comment Spec In Lab Lorri TOBAR HEMATOLOGY ORDERABLE S Performing Organization Address City/[facility]/ZIP Co de Phone Number [facility] [place] [address] * (ABNORMAL) Hepatic Function Panel (05/13/2023 1:15 AM EDT) Protein, Total 5.5(L) 6.1 - 8.0 g/dL [facility] Albumin 3.0(L) 3.2 - 5.2 g/dL [facility] Aspartate Aminotransferase 792(H) 0 - 30 unit/L [facility] Alanine Aminotransferase 903(H) 0 - 30 unit/L [facility] Alkaline Phosphatase 85 35 - 105 unit/L [facility] Bilirubin, Total 0.5 0.2 - 1.3 mg/dL [facility] Bilirubin, Direct 0.3 0.0 - 0.3 mg/dL [facility] Blood 05/13/2023 1:15 AM EDT 05/13/2023 1:29 AM EDT Narrative Resulting Agency Comment Spec In Lab Alirio Hudson MD CHEMISTRY ORDERABLE S Performing Organization Address [facility] Co de Phone Number [facility] [place] [address] * (ABNORMAL) Basic Metabolic Panel (non-fasting) (05/13/2023 1:15 AM EDT) Pathologist [facility] [place] Glucose 107 65 - 199 mg/dL [facility] Comment:Diabetes: >=200 mg/d L plus symptoms Blood Urea Nitrogen 82(H) 8 - 18 mg/dL [facility] Creatinine 3.15(H) 0.70 - 1.20 mg/dL [facility] Comment:result rechecked-OG Sodium 132(L) 135 - 145 mmol/L [facility] Potassium 3.8 3.5 - 5.0 mmol/L [facility] Comment: Please note: ??Patients with WBC >100,000 may have falsely elevated Potassium levels. ??For accurate Potassium quantification in these patients send serum separator tube (gold top) for subsequent determinations. ??Contact the Clinical Chemistry Laboratory if there are any questions. Chloride 95(L) 98 - 107 mmol/L [facility] Carbon Dioxide 20(L) 22 - 31 mmol/L [facility] Anion Gap 17(H) 5 - 15 mmol/L [facility] Calcium 8.3(L) 8.5 - 10.5 mg/dL [facility] Est Glomerular Filtration Rate 16(L) >=60 mL/min/1. 73 m?? [facility] [...] City/State/[facility] Co de Phone Number [facility] [place] [address] * (ABNORMAL) BLOOD GAS 2 ARTERIAL (05/12/2023 3:57 PM EDT) pH, Arterial 7.39 7.35 - 7.45 [facility] PCO2, Arterial 33(L) 35 - 45 mmHg [facility] PO2, Arterial 101 85 - 104 mmHg [facility] Bicarbonate, Arterial 19.5(L) 20.0 - 26.0 mmol/L [facility] Base Excess, Arterial -5.5(L) -3.0 - 3.0 mmol/L [facility] Hgb Blood Gas 9.8(L) 11.7 - 15.5 g/dL [facility] Oxyhemoglobin, Arterial 95.2 94.0 - 97.0 % [facility] Carboxyhemoglob in, Arterial 0.2 % [facility] Comment: Nonsmokers: 0.5-1.5% COHB Smokers: Variable, but usually less than 10% Toxic: 20-30% COHB Lethal: Greater than 60% COHB Methemoglobin, Arterial 0.8 <=1.5 % [facility] Na Whole Blood 129(L) 135 - 145 mmol/L [facility] K Whole Blood 3.8 3.5 - 5.0 mmol/L [facility] Comment: Please note: Patients with WBC >100,000 may have falsely elevated Potassium levels. Contact the Clinical Chemistry Laboratory if there are any questions. ICa Whole Blood 1.05(L) 1.15 - 1.33 mmol/L [facility] Comment: Note: ??Total bilirubin higher than 20 mg/dL may lead to falsely low ionized calcium. CL Whole Blood 96(L) 98 - 107 mmol/L [facility] Gluc Whole Bld 178 65 - 199 mg/dL [facility] Comment:Diabetes: >=200 mg/d L plus symptoms. Lactate WB 1.5 0.5 - 2.2 mmol/L [facility] FIO2 Art 40 % [facility] PF Ratio Art 252 [facility] Blood 05/12/2023 3:57 PM EDT 05/12/2023 3:57 PM EDT Alirio Hudson MD POINT OF CARE TEST ORDERABLES [facility] [place] [address] * (ABNORMAL) Coox2 (05/12/2023 2:25 PM EDT) pO2, Coox 37 mmHg [facility] Hgb Blood Gas 9.5(L) 11.7 - 15.5 g/dL [facility] Oxyhemoglobin, Coox 59.9 % [facility] Carboxyhemoglo bin, Coox 0.3 % [facility] Comment: Nonsmokers: 0.5-1.5% COHB Smokers: Variable, but usually less than 10% Toxic: 20-30% COHB Lethal: Greater than 60% COHB Methemoglobin, Coox 0.7 <=1.5 % [facility] Source Coox Mixed Venous [facility] Blood 05/12/2023 2:25 PM EDT 05/12/2023 2:25 PM EDT Alirio Hudson MD POINT OF CARE TEST ORDERABLES [facility] [place] [address] * (ABNORMAL) BLOOD GAS 2 ARTERIAL (05/12/2023 2:23 PM EDT) pH, Arterial 7.37 7.35 - 7.45 [facility] PCO2, Arterial 36 35 - 45 mmHg [facility] PO2, Arterial 102 85 - 104 mmHg [facility] Bicarbonate, Arterial 20.4 20.0 - 26.0 mmol/L [facility] Base Excess, Arterial -4.8(L) -3.0 - 3.0 mmol/L [facility] Hgb Blood Gas 12.7 11.7 - 15.5 g/dL [facility] Oxyhemoglobin, Arterial 95.4 94.0 - 97.0 % [facility] Carboxyhemoglob in, Arterial 0.3 % [facility] Comment: Nonsmokers: 0.5-1.5% COHB Smokers: Variable, but usually less than 10% Toxic: 20-30% COHB Lethal: Greater than 60% COHB Methemoglobin, Arterial 0.7 <=1.5 % [facility] Na Whole Blood 129(L) 135 - 145 mmol/L [facility] K Whole Blood 3.7 3.5 - 5.0 mmol/L [facility] Comment: Please note: Patients with WBC >100,000 may have falsely elevated Potassium levels. Contact the Clinical Chemistry Laboratory if there are any questions. ICa Whole Blood 1.05(L) 1.15 - 1.33 mmol/L [facility] Comment: Note: ??Total bilirubin higher than 20 mg/dL may lead to falsely low ionized calcium. CL Whole Blood 95(L) 98 - 107 mmol/L [facility] Gluc Whole Bld 168 65 - 199 mg/dL [facility] Comment:Diabetes: >=200 mg/d L plus symptoms. Lactate WB 1.8 0.5 - 2.2 mmol/L [facility] FIO2 Art 40 % [facility] PF Ratio Art 255 [facility] Blood 05/12/2023 2:23 PM EDT 05/12/2023 2:23 PM EDT Alirio Hudson MD POINT OF CARE TEST ORDERABLES Performing Organization Address City/[facility]/[place] [address] * (ABNORMAL) Troponin (05/12/2023 2:05 PM EDT) Troponin-T, High Sensitivity 1,022(H) <=14 ng/L [facility] Comment: This patient's troponin [...] [facility] Test Catalog Reference: Fourth Mcgrady Definition of Myocardial Infarction. Journal of the [employer] 2018;72:5129-5276 Blood 05/12/2023 2:05 PM EDT 05/12/2023 2:14 PM EDT Narrative Resulting Agency Comment Spec In Lab Alirio Hudson MD CHEMISTRY ORDERABLE S Performing Organization Address City/[facility]/ZIP Co de Phone Number [facility] [place] [address] * (ABNORMAL) Hemoglobin (05/12/2023 2:05 PM EDT) Pathologist [facility] [place] Hemoglobin 8.5(L) 11.7 - 15.5 g/dL [facility] Blood 05/12/2023 2:05 PM EDT 05/12/2023 2:14 PM EDT Narrative Resulting Agency Comment Spec In Lab Alirio Hudson MD HEMATOLOGY ORDERABL ES Performing Organization Address [facility] Co de Phone Number [facility] [place] [address] * Potassium (05/12/2023 2:05 PM EDT) [facility] Potassium 3.9 3.5 - 5.0 mmol/L [facility] [...] MD CHEMISTRY ORDERABLE S Performing Organization Address [facility] Co de Phone Number [facility] [place] [address] * (ABNORMAL) BLOOD GAS 2 ARTERIAL (05/12/2023 11:05 AM EDT) pH, Arterial 7.34(L) 7.35 - 7.45 [facility] PCO2, Arterial 42 35 - 45 mmHg [facility] PO2, Arterial 73(L) 85 - 104 mmHg [facility] Bicarbonate, Arterial 22.1 20.0 - 26.0 mmol/L [facility] Base Excess, Arterial -3.6(L) -3.0 - 3.0 mmol/L [facility] Hgb Blood Gas 9.3(L) 11.7 - 15.5 g/dL [facility] Oxyhemoglobin, Arterial 89.3(L) 94.0 - 97.0 % [facility] Carboxyhemoglob in, Arterial 0.2 % [facility] Comment: Nonsmokers: 0.5-1.5% COHB Smokers: Variable, but usually less than 10% Toxic: 20-30% COHB Lethal: Greater than 60% COHB Methemoglobin, Arterial 0.9 <=1.5 % [facility] Na Whole Blood 131(L) 135 - 145 mmol/L [facility] K Whole Blood 3.8 3.5 - 5.0 mmol/L [facility] Comment: Please note: Patients with WBC >100,000 may have falsely elevated Potassium levels. Contact the Clinical Chemistry Laboratory if there are any questions. ICa Whole Blood 1.04(L) 1.15 - 1.33 mmol/L [facility] Comment: Note: ??Total bilirubin higher than 20 mg/dL may lead to falsely low ionized calcium. CL Whole Blood 96(L) 98 - 107 mmol/L [facility] Gluc Whole Bld 152 65 - 199 mg/dL [facility] Comment:Diabetes: >=200 mg/d L plus symptoms. Lactate WB 2.8(H) 0.5 - 2.2 mmol/L [facility] FIO2 Art 40 % [facility] PF Ratio Art 182 [facility] Blood 05/12/2023 11:0 5 AM EDT 05/12/2023 11:05 AM EDT Alirio Hudson MD POINT OF CARE TEST ORDERABLES Performing Organization Address City/State/[facility] Co de Phone Number [facility] [place] [address] * (ABNORMAL) BLOOD GAS 2 ARTERIAL (05/12/2023 10:14 AM EDT) pH, Arterial 7.18(Criti gabrielle) 7.35 - 7.45 [facility] Comment:Noted by woodwind instrument repairer. PCO2, Arterial 45 35 - 45 mmHg [facility] PO2, Arterial 186(H) 85 - 104 mmHg [facility] Bicarbonate, Arterial 16.2(L) 20.0 - 26.0 mmol/L [facility] Base Excess, Arterial -12.2(L) -3.0 - 3.0 mmol/L [facility] Hgb Blood Gas 10.0(L) 11.7 - 15.5 g/dL [facility] Oxyhemoglobin, Arterial 97.0 94.0 - 97.0 % [facility] Carboxyhemoglob in, Arterial 0.2 % [facility] Comment: Nonsmokers: 0.5-1.5% COHB Smokers: Variable, but usually less than 10% Toxic: 20-30% COHB Lethal: Greater than 60% COHB Methemoglobin, Arterial 0.9 <=1.5 % [facility] Na Whole Blood 129(L) 135 - 145 mmol/L [facility] K Whole Blood 3.6 3.5 - 5.0 mmol/L [facility] Comment: Please note: Patients with WBC >100,000 may have falsely elevated Potassium levels. Contact the Clinical Chemistry Laboratory if there are any questions. ICa Whole Blood 1.10(L) 1.15 - 1.33 mmol/L [facility] Comment: Note: ??Total bilirubin higher than 20 mg/dL may lead to falsely low ionized calcium. CL Whole Blood 97(L) 98 - 107 mmol/L [facility] Gluc Whole Bld 161 65 - 199 mg/dL [facility] Comment:Diabetes: >=200 mg/d L plus symptoms. Lactate WB 3.3(H) 0.5 - 2.2 mmol/L [facility] FIO2 Art 100 % [facility] PF Ratio Art 186 [facility] Blood 05/12/2023 10:1 4 AM EDT 05/12/2023 10:14 AM EDT Alirio Hudson MD POINT OF CARE TEST ORDERABLES [facility] [place] [address] * EKG 12 Lead (05/12/2023 10:10 AM EDT) Ventricular rate 116 BPM MUSE SYSTEM Atrial Rate 116 BPM MUSE SYSTEM P-R Interval 158 ms MUSE SYSTEM QRS Duration 114 ms MUSE SYSTEM Q-T Interval 348 ms MUSE SYSTEM QTC Calculated (Bezet) 483 ms MUSE SYSTEM Calculated P [place] 37 degrees MUSE SYSTEM Calculated R [place] 31 degrees MUSE SYSTEM Calculated T [place] -138 degrees MUSE SYSTEM INTERPRETATION Sinus tachycardia with intermittent aberrant ventricular conduction Possible Left atrial enlargement Incomplete left bundle block Left ventricular hypertrophy with repolarization abnormality ( Sokolow-Orozco , [place] product ) ST & T wave abnormality in Inferolateral leads Abnormal ECG When compared with ECG of 10-MAY-2023 13:16, ST & T wave abnormality is more pronounced in inferolateral leads I personally reviewed the tracing and edited the fellows interpretation Confirmed by fellow MD Anuja, Jim ([id number]) on 05/12/2023 1:04:20 PM Confirmed by MD Mono, Eleni ([id number]) on 05/12/2023 9:28:34 PM MUSE SYSTEM 05/12/2023 [...] questions please contact the health child care associate that requested your imaging first. ? Electronically signed by: Chyna Johnson MD, [facility] ??([phone]), at 05/12/2023 10:08 AM Narrative 05/12/2023 10:08 AM EDT EXAMINATION: XR CHEST ONE VIEW CLINICAL HISTORY: Post TAVR TECHNIQUE: 1 view of the chest COMPARISON: Chest radiograph from earlier today FINDINGS: Interval placement of endotracheal tube with tip terminating 2 cm above the shira. Interval placement of enteric tube projecting along the expected course of the esophagus and outside the brtcw-kv-iveb. Interval retraction of right IJ approach pulmonary [...] expected course ofthe esophagus and outside the wdgki-yl-dugw. Interval retraction of right IJ approach pulmonary [...] have questions please contactthe health child care associate that requested your imaging first. Electronically signed by: Chyna Johnson MD, [facility]([phone]), at 05/12/2023 10:08 AM Alirio Hudson MD IMG DX ORDERABLES * ECHO LMTD W/O CONTRAST W LMTD SPEC DOPP COLOR DOPP (05/12/2023 9:23 AM EDT) EF 20 HEARTNeuroVigil SYSTEM Anatomical Region Laterality Modality Cardiac Other 05/12/2023 7:33 AM EDT Narrative 05/12/2023 10:18 AM EDT ? Echocardiogram Report Name: PURNIMA THACKER ?Study Date: 05/12/2023 07:33 AMBP: 96/63 mmHg ? Patient Location: [place]06 A : 1955 ? Height: 154 cm ? Account: [id number] Age: 67 yrs ? Weight: 75 kg Gender: Female ?BSA: 1.7 m2 Ordering Physician: RADHA HOLLINS Referring Physician: RADHA HOLLINS Performed By: Dilma Bee RDCS Reason For Study: Guidance for TAVR procedure Exam Location: [facility]. Interpretation Summary PRE TAVR: There [...] mL/m2. POST TAVR: Normal function of the ltrxs-do-axxrq prosthesis. See below for hemodynamic parameters. Slight improvement in left and right ventricular systolic function. LVEF now 20-25%. No pericardial effusion. See report for additional findings. Procedure Limited - 26597. Doppler - 44209. Color Doppler - 24259. Left Ventricle Left ventricle is of normal [...] 307:33 AMBP: 96/63 mmHg Patient Location: [address] : 1955 Height: 154 cm Account: [id number] Age: 67 yrs Weight: 75 kg Gender: Female BSA: 1.7 m2 Ordering Physician: RADHA HOLLINS Referring Physician: RADHA HOLLINS Performed By: Dilma Bee RDCS Reason For Study: Guidance for TAVR procedure Exam Location: [facility]. Interpretation Summary PRE TAVR: There [...] 28mL/m2. POST TAVR: Normal function of the hzmkr-wj-kzwwm prosthesis. See belowfor hemodynamic parameters. Slight improvement in left and right ventricularsystolic function. LVEF now 20-25%. No pericardial effusion. See report for additional findings. Procedure Limited - 11176. Doppler - 01110. Color Doppler - 62673. Left Ventricle Left ventricle is of normal [...] Modality Other Narrative 05/12/2023 2:37 PM EDT ?[facility] ? Cardiac Catheterization/Intervention Report ? Patient Name: Purnima Thacker. ? Procedure Date: 05/12/2023 ? A #: [id number] ? Primary Physician: Antelmo Sharma ? Case #: [id number] ? File Name: [id number] ? Catheterization Order Number: [id number] ? [facility] ? Final Report [place], [place] ? Patient Name: ? Purnima M. Kirstie ? ID#: ?[id number] ? : ?1955 ? Procedure Date: ? May 12, 2023 ? Case #: ? [id number] ? Room: ? 6 ? Case [...] Device Deployment ?* Temporary Pacemaker Insertion In Blender/Braze Applicator ?* Endotracheal Intubation By Non-Cath Physician ?* [...] ??A premounted 4.00 x 30 mm [place] (MINNA) was ? deployed with a maximum [...] calculated STS risk score was 30.1%. A uxtet-us-jjjvn ?procedure was performed on the pre-existing bioprosthetic stented ?prosthesis. The priority of the mgedq-qu-forqn procedure was Elective. ?The procedure was performed [...] Lai 3 Ultra RESILIA 23 mm THV (s/g=[id number]) transcatheter ?valve was inserted using standard technique. [...] to nor was it given in the ?animal laboratory helper. ?Recommended anti-platelet/anti-thrombotic regimen: ?Continue aspirin 81 mg [...] regimen. ? Comments: ?Successful right transfemoral TAVR Yxhih-wg-Nmrvx with a 23 mm Lai 3 ?THV. [...] insertion-coronary, access site angiography, ?temporary pacemaker in animal laboratory helper, intubation-non cath physician, vascular ?closure device, transthoracic echo ??and TAVR. Dr. Alirio Hudson M.D. ?performed the left heart catheterization, access site angiography, ?temporary pacemaker in animal laboratory helper, vascular closure device, transthoracic ?echo , TAVR and CPR during cath. Dr. Lynda Mcgowan M.D. performed the ABG, ?anesthesia and intubation-non cath physician. ? Antelmo Sharma M.D. ? Electronically Signed by: Antelmo Sharma M.D. ? Report Finalized: 05/12/2023 ??14:31 ? Report Last Ammended: 07/01/2023 ??11:30 ? Procedure Note Antelmo Sharma MD - 07/01/2023 [facility] Cardiac Catheterization/Intervention Report Patient Name: Purnima ThackerKaylie Procedure Date: 05/12/2023 A #: [id number] Primary Physician: Antelmo Sharma Case #: [id number] File Name: [id number] Catheterization Order Number: [id number] [facility] FinalReport [place], [place] Patient Name: Purnima Thacker ID#:[id number] :1955 Procedure Date: May 12, 2023 Case #: [id number] Room: 6 Case Physicians: Antelmo Sharma M.D. Start: 08:03 Alirio Hudson M.D. Admission:05/08/2023 Lynda Mcgowan M.D. Discharge:05/22/2023 Fellow: Rebekah Tejeda M.D. Referring Physician: Mario Alberto Chin M.D. Procedures: * Coronary Angiography * Left Heart Catheterization * Coronary Stent Insertion * Transcatheter Aortic Valve Replacement * Vascular Closure Device Deployment * Temporary Pacemaker Insertion In Blender/Braze Applicator * Endotracheal Intubation By Non-Cath Physician * [...] guide. A premounted 4.00 x 30 mm [place] (MINNA) was deployed with a maximum inflation [...] calculated STS risk score was 30.1%. A myxrs-de-frwzo procedure was performed on the pre-existing bioprosthetic stented prosthesis. The priority of the xmnxm-bx-qptqo procedure wasElective. The procedure was performed under Moderate sedation performed byLynda Mcgowan M.D. (see anesthesia report for additional details). Alirio Hudson M.D. participated in the case (see Cardiac Surgery reportfor additional details). The TAVR sheath was a 14 Fr Corona eSheath Introducer and theaccess site was femoral. Rapid ventricular pacing was performed. An Corona Lai 3 Ultra RESILIA 23 mm THV (s/p=[id number])transcatheter valve was inserted using standard technique. The [...] prior to nor was it given inthe animal laboratory helper. Recommended anti-platelet/anti-thrombotic regimen: Continue aspirin 81 mg [...] this regimen. Comments: Successful right transfemoral TAVR Hafvh-hf-Hvuhp with a 23 mmSapien 3 THV. We [...] insertion-coronary, access site angiography, temporary pacemaker in animal laboratory helper, intubation-non cath physician,vascular closure device, transthoracic echo and TAVR. Dr. Alirio Hudson M.D. performed the left heart catheterization, access site angiography, temporary pacemaker in animal laboratory helper, vascular closure device,transthoracic echo , TAVR and [...] pH, POC 7.20(Crit ical) 7.35 - 7.45 [facility] Comment:Critical value OK, C C Lab. pCO2, POC 42 35 - 45 mmHg [facility] pO2, POC 260(H) 85 - 104 mmHg [facility] Base Excess, POC -11.0(L) -3.0 - 3.0 mmol/L [facility] Bicarbonate, POC 16.7(L) 20.0 - 26.0 mmol/L [facility] Sodium, POC 129(L) 135 - 145 mmol/L [facility] POC Potassium 3.8 3.5 - 5.0 mmol/L [facility] Ionized Calcium, POC 1.12(L) 1.15 - 1.33 mmol/L [facility] POC Hematocrit 23.0(L) 34.0 - 45.0 % [facility] POC Calc Hgb 7.8(L) 11.2 - 15.7 g/dL [facility] Comment:The calculation of h emoglobin from hematocrit assumes a normal MCHC. POC Bgas Loc CC Lab [facility] Blood 05/12/2023 8:50 AM EDT 05/13/2023 12:00 PM EDT Alirio Hudson MD CHEMISTRY ORDERABLE S [facility] [place] [address] * (ABNORMAL) Point of Care Blood Gas Historical (05/12/2023 8:10 AM EDT) pH, POC 7.27(Crit ical) 7.35 - 7.45 [facility] Comment:Critical value Yamel KRAUSE C Lab. pCO2, POC 37 35 - 45 mmHg [facility] pO2, POC 29(Critic al) 85 - 104 mmHg [facility] Comment:Critical value JIMI C C Lab. Base Excess, POC -10.0(L) -3.0 - 3.0 mmol/L [facility] Bicarbonate, POC 16.7(L) 20.0 - 26.0 mmol/L [facility] Sodium, POC 123(L) 135 - 145 mmol/L [facility] POC Potassium 4.0 3.5 - 5.0 mmol/L [facility] Ionized Calcium, POC 1.12(L) 1.15 - 1.33 mmol/L [facility] POC Hematocrit 27.0(L) 34.0 - 45.0 % [facility] POC Calc Hgb 9.2(L) 11.2 - 15.7 g/dL [facility] Comment:The calculation of h emoglobin from hematocrit assumes a normal MCHC. POC Bgas Loc CC Lab [facility] Blood 05/12/2023 8:10 AM EDT 05/13/2023 12:00 PM EDT Alirio Hudson MD CHEMISTRY ORDERABLE S Performing Organization Address City/[facility]/ZIP Co de Phone Number [facility] [place] [address] * (ABNORMAL) Lactate, whole blood, send to lab ([facility] (05/12/2023 7:00 AM EDT) Lactate WB 2.4(H) 0.5 - 2.2 mmol/L [facility] Blood 05/12/2023 7:00 AM EDT 05/12/2023 7:09 AM EDT Narrative Resulting Agency Comment Spec In Lab Radha Hollins MD CHEMISTRY ORDERABL ES Performing Organization Address [facility] Co de Phone Number [facility] [place] [address] * (ABNORMAL) Comprehensive metabolic panel (non-fasting) (05/12/2023 6:00 AM EDT) Glucose 167 65 - 199 mg/dL [facility] Comment:Diabetes: >=200 mg/d L plus symptoms Blood Urea Nitrogen 67(H) 8 - 18 mg/dL [facility] Creatinine 2.01(H) 0.70 - 1.20 mg/dL [facility] Sodium 131(L) 135 - 145 mmol/L [facility] Potassium 4.3 3.5 - 5.0 mmol/L [facility] Comment: Please note: ??Patients with WBC >100,000 may have falsely elevated Potassium levels. ??For accurate Potassium quantification in these patients send serum separator tube (gold top) for subsequent determinations. ??Contact the Clinical Chemistry Laboratory if there are any questions. Chloride 97(L) 98 - 107 mmol/L [facility] Carbon Dioxide 14(L) 22 - 31 mmol/L [facility] Anion Gap 20(H) 5 - 15 mmol/L [facility] Calcium 8.6 8.5 - 10.5 mg/dL [facility] Protein, Total 6.3 6.1 - 8.0 g/dL [facility] Albumin 3.5 3.2 - 5.2 g/dL [facility] Aspartate Aminotransferase 1,435(H) 0 - 30 unit/L [facility] Alanine Aminotransferase 1,174(H) 0 - 30 unit/L [facility] Alkaline Phosphatase 100 35 - 105 unit/L [facility] Bilirubin, Total 0.9 0.2 - 1.3 mg/dL [facility] Est Glomerular Filtration Rate 27(L) >=60 mL/min/1. 73 m?? [facility] [...] Lab Radha Hollins MD CHEMISTRY ORDERABL ES [facility] [place] [address] * (ABNORMAL) Coox2 (05/12/2023 5:08 AM EDT) pO2, Coox 24 mmHg [facility] Hgb Blood Gas 10.4(L) 11.7 - 15.5 g/dL [facility] Oxyhemoglobin, Coox 30.7 % [facility] Carboxyhemoglo bin, Coox 0.3 % [facility] Comment: Nonsmokers: 0.5-1.5% COHB Smokers: Variable, but usually less than 10% Toxic: 20-30% COHB Lethal: Greater than 60% COHB Methemoglobin, Coox 0.8 <=1.5 % [facility] Source Coox Mixed Venous [facility] Blood 05/12/2023 5:08 AM EDT 05/12/2023 5:08 AM EDT Radha Hollins MD POINT OF CARE TEST ORDERABLES [facility] [place] [address] * (ABNORMAL) Coox2 (05/12/2023 3:21 AM EDT) pO2, Coox 25 mmHg [facility] Hgb Blood Gas 10.8(L) 11.7 - 15.5 g/dL [facility] Oxyhemoglobin, Coox 32.7 % [facility] Carboxyhemoglo bin, Coox 0.3 % [facility] Comment: Nonsmokers: 0.5-1.5% COHB Smokers: Variable, but usually less than 10% Toxic: 20-30% COHB Lethal: Greater than 60% COHB Methemoglobin, Coox 0.7 <=1.5 % [facility] Source Coox Mixed Venous [facility] Blood 05/12/2023 3:21 AM EDT 05/12/2023 3:21 AM EDT Radha Hollins MD POINT OF CARE TEST ORDERABLES [facility] [place] [address] * (ABNORMAL) BLOOD GAS 2 ARTERIAL (05/12/2023 3:18 AM EDT) pH, Arterial 7.34(L) 7.35 - 7.45 [facility] PCO2, Arterial 30(L) 35 - 45 mmHg [facility] PO2, Arterial 72(L) 85 - 104 mmHg [facility] Bicarbonate, Arterial 16.0(L) 20.0 - 26.0 mmol/L [facility] Base Excess, Arterial -9.8(L) -3.0 - 3.0 mmol/L [facility] Hgb Blood Gas 11.0(L) 11.7 - 15.5 g/dL [facility] Oxyhemoglobin, Arterial 89.8(L) 94.0 - 97.0 % [facility] Carboxyhemoglob in, Arterial 0.3 % [facility] Comment: Nonsmokers: 0.5-1.5% COHB Smokers: Variable, but usually less than 10% Toxic: 20-30% COHB Lethal: Greater than 60% COHB Methemoglobin, Arterial 0.7 <=1.5 % [facility] Na Whole Blood 131(L) 135 - 145 mmol/L [facility] K Whole Blood 4.2 3.5 - 5.0 mmol/L [facility] Comment: Please note: Patients with WBC >100,000 may have falsely elevated Potassium levels. Contact the Clinical Chemistry Laboratory if there are any questions. ICa Whole Blood 1.12(L) 1.15 - 1.33 mmol/L [facility] Comment: Note: ??Total bilirubin higher than 20 mg/dL may lead to falsely low ionized calcium. CL Whole Blood 100 98 - 107 mmol/L [facility] Gluc Whole Bld 160 65 - 199 mg/dL [facility] Comment:Diabetes: >=200 mg/d L plus symptoms. Lactate WB 2.7(H) 0.5 - 2.2 mmol/L [facility] Flow Art 5.0 LPM [facility] Blood 05/12/2023 3:18 AM EDT 05/12/2023 3:18 AM EDT Radha Hollins MD POINT OF CARE TEST ORDERABLES [facility] [place] [address] * (ABNORMAL) Coox2 (05/12/2023 1:14 AM EDT) pO2, Coox 28 mmHg [facility] Hgb Blood Gas 10.9(L) 11.7 - 15.5 g/dL [facility] Oxyhemoglobin, Coox 37.3 % [facility] Carboxyhemoglo bin, Coox 0.3 % [facility] Comment: Nonsmokers: 0.5-1.5% COHB Smokers: Variable, but usually less than 10% Toxic: 20-30% COHB Lethal: Greater than 60% COHB Methemoglobin, Coox 0.5 <=1.5 % [facility] Source Coox Mixed Venous [facility] Blood 05/12/2023 1:14 AM EDT 05/12/2023 1:14 AM EDT Radha Hollins MD POINT OF CARE TEST ORDERABLES [facility] [place] [address] * (ABNORMAL) BLOOD GAS 2 ARTERIAL (05/12/2023 1:06 AM EDT) pH, Arterial 7.34(L) 7.35 - 7.45 [facility] PCO2, Arterial 30(L) 35 - 45 mmHg [facility] PO2, Arterial 81(L) 85 - 104 mmHg [facility] Bicarbonate, Arterial 15.7(L) 20.0 - 26.0 mmol/L [facility] Base Excess, Arterial -10.1(L) -3.0 - 3.0 mmol/L [facility] Hgb Blood Gas 11.0(L) 11.7 - 15.5 g/dL [facility] Oxyhemoglobin, Arterial 92.3(L) 94.0 - 97.0 % [facility] Carboxyhemoglob in, Arterial 0.2 % [facility] Comment: Nonsmokers: 0.5-1.5% COHB Smokers: Variable, but usually less than 10% Toxic: 20-30% COHB Lethal: Greater than 60% COHB Methemoglobin, Arterial 0.6 <=1.5 % [facility] Na Whole Blood 131(L) 135 - 145 mmol/L [facility] K Whole Blood 4.2 3.5 - 5.0 mmol/L [facility] Comment: Please note: Patients with WBC >100,000 may have falsely elevated Potassium levels. Contact the Clinical Chemistry Laboratory if there are any questions. ICa Whole Blood 1.13(L) 1.15 - 1.33 mmol/L [facility] Comment: Note: ??Total bilirubin higher than 20 mg/dL may lead to falsely low ionized calcium. CL Whole Blood 99 98 - 107 mmol/L [facility] Gluc Whole Bld 132 65 - 199 mg/dL [facility] Comment:Diabetes: >=200 mg/d L plus symptoms. Lactate WB 2.7(H) 0.5 - 2.2 mmol/L [facility] Flow Art 5.0 LPM [facility] Blood 05/12/2023 1:06 AM EDT 05/12/2023 1:06 AM EDT Radha Hollins MD POINT OF CARE TEST ORDERABLES Performing Organization Address City/State/[facility] Co de Phone Number [facility] [place] [address] * (ABNORMAL) Differential, Automated (05/12/2023 1:05 AM EDT) Neutrophil % 83.3 % [facility] Neutrophil Absolute 7.49(H) 1.70 - 6.10 x10(3)/mc L [facility] Lymph % 7.1 % [facility] Lymphocytes Abs 0.6(L) 0.9 - 3.2 x10(3)/mc L [facility] Monocyte % 8.9 % [facility] Monocyte Abs 0.8 0.3 - 0.9 x10(3)/mc L [facility] Eos % 0.0 % [facility] Eosinophils Abs 0.0 0.0 - 0.4 x10(3)/mc L [facility] Basophil % 0.1 % [facility] Baso Absolute 0.0 0.0 - 0.1 x10(3)/mc L [facility] Immature Gran % 0.60 % [facility] Comment: Immature granulocytes(IG's)percentage and absolute count will include metamyelocytes, myelocytes, and promyelocytes. Blood smears from CBCs yielding IG's will be scanned manually for concordance. If this scan disagrees with the automated IG or if promyelocytes are noted, a manual differential will be performed. Immature Gran Absolute 0.05(H) 0.00 - 0.04 x10(3)/mc L [facility] Blood 05/12/2023 1:05 AM EDT 05/12/2023 1:15 AM EDT Narrative Resulting Agency Comment Spec In Lab Gianni Fletcher MD HEMATOLOGY ORDERABLE S [facility] [place] [address] * (ABNORMAL) Hemogram (05/12/2023 1:05 AM EDT) White Blood Cell 9.0 4.0 - 9.5 x10(3)/[facility] Red Blood Cell 3.01(L) 4.00 - 5.21 x10(6)/ L [facility] Hemoglobin 9.8(L) 11.7 - 15.5 g/dL [facility] Hematocrit 28.7(L) 35.7 - 45.8 % [facility] Mean Cell Volume 95.3(H) 82.6 - 94.4 fL [facility] Mean Cell Hemoglobin 32.6(H) 27.1 - 32.0 pg [facility] Mean Cell Hemoglobin Concentration 34.1 31.7 - 35.0 g/dL [facility] Platelet 186 145 - 357 x10(3)/mc L [facility] RDW Standard Deviation 43.7 37.0 - 46.0 fL [facility] RDW coefficient of variation 12.7 11.5 - 14.1 % [facility] Mean Platelet Volume 10.3 7.6 - 12.9 fL [facility] NRBC% auto 0.0 % [facility] NRBC Absolute 0.000 0.000 - 0.000 x10(3)/ L [facility] Blood 05/12/2023 1:05 AM EDT 05/12/2023 1:15 AM EDT Narrative Resulting Agency Comment Spec In Lab Gianni Fletcher MD HEMATOLOGY ORDERABLE S [facility] [place] [address] * (ABNORMAL) Comprehensive metabolic panel (non-fasting) (05/12/2023 1:05 AM EDT) Glucose 141 65 - 199 mg/dL [facility] Comment:Diabetes: >=200 mg/d L plus symptoms Blood Urea Nitrogen 63(H) 8 - 18 mg/dL [facility] Creatinine 1.86(H) 0.70 - 1.20 mg/dL [facility] Sodium 131(L) 135 - 145 mmol/L [facility] Potassium 4.4 3.5 - 5.0 mmol/L [facility] Comment: Please note: ??Patients with WBC >100,000 may have falsely elevated Potassium levels. ??For accurate Potassium quantification in these patients send serum separator tube (gold top) for subsequent determinations. ??Contact the Clinical Chemistry Laboratory if there are any questions. Chloride 96(L) 98 - 107 mmol/L [facility] Carbon Dioxide 14(L) 22 - 31 mmol/L [facility] Anion Gap 21(H) 5 - 15 mmol/L [facility] Calcium 9.0 8.5 - 10.5 mg/dL [facility] Protein, Total 6.6 6.1 - 8.0 g/dL [facility] Albumin 3.9 3.2 - 5.2 g/dL [facility] Aspartate Aminotransferase 1,227(H) 0 - 30 unit/L [facility] Alanine Aminotransferase 1,097(H) 0 - 30 unit/L [facility] Alkaline Phosphatase 108(H) 35 - 105 unit/L [facility] Bilirubin, Total 1.0 0.2 - 1.3 mg/dL [facility] Est Glomerular Filtration Rate 29(L) >=60 mL/min/1. 73 m?? [facility] [...] Lab Radha Hollins MD CHEMISTRY ORDERABL ES [facility] [place] [address] * XR Chest One View (05/12/2023 1:00 [...] questions please contact the health child care associate that requested your imaging first. [...] have questions please contactthe health child care associate that requested your imaging first. Radha Hollins MD IMG DX ORDERABLES * (ABNORMAL) Coox2 (05/12/2023 12:30 AM EDT) pO2, Coox 22 mmHg [facility] Hgb Blood Gas 10.9(L) 11.7 - 15.5 g/dL [facility] Oxyhemoglobin, Coox 25.1 % [facility] Carboxyhemoglo bin, Coox 0.3 % [facility] Comment: Nonsmokers: 0.5-1.5% COHB Smokers: Variable, but usually less than 10% Toxic: 20-30% COHB Lethal: Greater than 60% COHB Methemoglobin, Coox 1.4 <=1.5 % [facility] Source Coox Mixed Venous [facility] Blood 05/12/2023 12:3 0 AM EDT 05/12/2023 12:30 AM EDT Radha Hollins MD POINT OF CARE TEST ORDERABLES [facility] [place] [address] * XR Chest One View (05/11/2023 11:45 [...] questions please contact the health child care associate that requested your imaging first. [...] have questions please contactthe health child care associate that requested your imaging first. Radha Hollins MD IMG DX ORDERABLES * (ABNORMAL) Lactate, whole blood, send to lab ([facility] (05/11/2023 7:40 PM EDT) Lactate WB 4.8(Critic al) 0.5 - 2.2 mmol/L [facility] Comment:Called by: IMM, Read back by: Magdalena Baires, Date/Time:05/11/23 19:54. Blood 05/11/2023 7:40 PM EDT 05/11/2023 7:49 PM EDT Narrative Resulting Agency Comment Spec In Lab Radha Hollins MD CHEMISTRY ORDERABL ES Performing Organization Address [facility] Co de Phone Number [facility] [place] [address] * Urine culture (05/11/2023 7:22 PM EDT) Pathologist [facility] [place] Urine Culture 50,000-99,000 cfu/ml Normal mucosal herman Susceptibilit y testing not routinely performed for Coagulase Negative Staphylococcu s species and other Gram Positive organisms from urine. [facility] Clean Catch Urine 05/11/2023 7:22 PM EDT 05/11/2023 8:50 PM EDT Narrative Resulting Agency Comment Spec In Lab Brody Kaplan APRN MICROBIOLOGY - GENE RAL ORDERABLES Performing Organization Address [facility] de Phone Number [facility] [place] [address] * (ABNORMAL) Urinalysis Microscopic Exam (05/11/2023 7:22 PM EDT) RBC, Urine 2 0 - 4 /HPF [facility] WBC, Urine >100(H) 0 - 5 /HPF [facility] Bacteria, Urine Occasional (A) None /HPF [facility] Squamous Epithelial Cells Raw Data, Urine 5(H) <=4 /HPF [facility] Hyaline Casts, Urine 3(H) 0 - 2 /LPF [facility] Clean Catch Urine 05/11/2023 7:22 PM EDT 05/11/2023 7:31 PM EDT Narrative Resulting Agency Comment Spec In Lab Brody Kaplan APRN URINE ORDERABLES [facility] [place] [address] * (ABNORMAL) Urinalysis with reflex Culture (05/11/2023 7:22 PM EDT) Glucose, Urine Dipstick Negative Negative mg/dL [facility] Protein, Urine Dipstick Trace(A) Negative mg/dL [facility] Bilirubin, Urine Dipstick Negative Negative mg/dL [facility] Comment: Clinical correlation required for positive Urine Bilirubin results as false positive may occur with some drugs and drug related products. If a false positive is suspected a serum total bilirubin should be considered if clinically indicated. Urobilinogen, Urine Dipstick Normal Normal mg/dL [facility] pH, Urn (dipstick) 5.0 5.0 - 8.0 [facility] Blood, Urine Dipstick Trace(A) Negative mg/dL [facility] Ketone, Urine Dipstick Negative Negative mg/dL [facility] Nitrite, Urine Dipstick Negative Negative [facility] Leukocytes, Urine Dipstick Moderate(A) Negative mcL [facility] Appearance, Urine Dipstick Cloudy(A) Clear [facility] Specific [place] Urine Automated >=1.030(A) 1.005 - 1.030 [facility] Color, Urine Dipstick Yellow Yellow [facility] Reflex to Culture Yes [facility] Clean Catch Urine 05/11/2023 7:22 PM EDT 05/11/2023 7:31 PM EDT Narrative Resulting Agency Comment Spec In Lab Brody Kaplan BEER RUNNER URINE ORDERABLES [facility] [place] [address] * (ABNORMAL) pro-Brain Natriuretic Peptide (05/11/2023 7:11 PM EDT) NT-proBNP >35,000(H) <=124 pg/mL [facility] Blood 05/11/2023 7:11 PM EDT 05/11/2023 7:26 PM EDT Narrative Resulting Agency Comment Spec In Lab Radha Hollins MD CHEMISTRY ORDERABL ES Performing Organization Address [facility]/ZIP Co de Phone Number [facility] [place] [address] * (ABNORMAL) Lactate, whole blood, send to lab ([facility]) (05/11/2023 2:47 PM EDT) Lactate WB 2.9(H) 0.5 - 2.2 mmol/L [facility] Blood 05/11/2023 2:47 PM EDT 05/11/2023 2:53 PM EDT Narrative Resulting Agency Comment Spec In Lab Juan Luis Gonzalez MD CHEMISTRY ORDERABLES Performing Organization Address [facility] Co de Phone Number [facility] [place] [address] * (ABNORMAL) CT Angiogram Abdomen & Pelvis [...] questions please contact the health child care associate that requested your imaging first. [...] No stenosis. Left renal artery: No stenosis. OMNA: No stenosis. Iliac/Femoral Arteries: (Smallest luminal diameter) [...] questions please contact the health child care associate that requested your imaging first. ? Electronically signed by: Cullen Narayanan MD, [facility] ([phone]), at 05/11/2023 4:37 PM Narrative 05/11/2023 4:37 [...] 610 mm2 Circumference: 88 mm Calcification: Mild Myrgsoa-tb-jqwambbf height: Left: 6.2 mm Right: 5.8 mm THORACIC AORTA Description: Normal course and caliber. ??Mild diffuse atherosclerotic changes. No acute aortopathy noted. Hide Cooking Operator dimensions: Aortic root: 27.6 mm Max ascending aorta: 30.5 mm x 27.7 mm Suggested fluoroscopic angulation based on line extending through the nadirs of the three sinuses of Valsalva, set equidistant: ?? AZERBAIJANI ??9 degrees; cranial 7 degrees MITRAL: Mitral [...] Abdomen & Pelvis finding. Procedure Note Cullen Naraaynan MD - 05/11/2023 EXAMINATION: CT CARDIAC FOR [...] 610 mm2 Circumference: 88 mm Calcification: Mild Dnduhkp-rq-ttbmdqho height: Left: 6.2 mm Right: 5.8 mm THORACIC AORTA Description: Normal course and caliber. Mild diffuse atheroscleroticchanges. No acute aortopathy noted. Hide Cooking Operator dimensions: Aortic root: 27.6 mm Max ascending aorta: 30.5 mm x 27.7 mm Suggested fluoroscopic angulation based on line extending through thenadirs of the three sinuses of Valsalva, set equidistant: AZERBAIJANI 9 degrees; cranial 7 degrees MITRAL: Mitral [...] have questions please contactthe health child care associate that requested your imaging first. Electronically signed by: Cullen Narayanan MD, [facility]([phone]), at 05/11/2023 4:37 PM Antelmo Sharma MD IMG CT ORDERABLES * (ABNORMAL) Lactate, whole blood, send to lab ([facility] (05/11/2023 9:29 AM EDT) Pathologist [facility] [place] Lactate WB 3.1(H) 0.5 - 2.2 mmol/L [facility] Blood 05/11/2023 9:29 AM EDT 05/11/2023 9:38 AM EDT Narrative Resulting Agency Comment Spec In Lab Juan Luis Gonzalez MD CHEMISTRY ORDERABLES [facility] [place] [address] * (ABNORMAL) Differential, Automated (05/11/2023 4:42 AM EDT) Neutrophil % 78.1 % [facility] Neutrophil Absolute 5.46 1.70 - 6.10 x10(3)/mc L [facility] Lymph % 10.6 % [facility] Lymphocytes Abs 0.7(L) 0.9 - 3.2 x10(3)/mc L [facility] Monocyte % 9.6 % [facility] Monocyte Abs 0.7 0.3 - 0.9 x10(3)/mc L [facility] Eos % 0.0 % [facility] Eosinophils Abs 0.0 0.0 - 0.4 x10(3)/mc L [facility] Basophil % 0.4 % [facility] Baso Absolute 0.0 0.0 - 0.1 x10(3)/ L [facility] Immature Gran % 1.30 % [facility] Comment: Immature granulocytes(IG's)percentage and absolute count will include metamyelocytes, myelocytes, and promyelocytes. Blood smears from CBCs yielding IG's will be scanned manually for concordance. If this scan disagrees with the automated IG or if promyelocytes are noted, a manual differential will be performed. Immature Gran Absolute 0.09(H) 0.00 - 0.04 x10(3)/ L [facility] Blood 05/11/2023 4:42 AM EDT 05/11/2023 4:49 AM EDT Narrative Resulting Agency Comment Spec In Lab Klaudia Reid MD HEMATOLOGY OR DERABLES Performing Organization Address City/State/[facility] Co de Phone Number [facility] [place] [address] * (ABNORMAL) Hemogram (05/11/2023 4:42 AM EDT) White Blood Cell 7.0 4.0 - 9.5 x10(3)/[facility] Red Blood Cell 3.44(L) 4.00 - 5.21 x10(6)/[facility] Hemoglobin 11.1(L) 11.7 - 15.5 g/dL [facility] Hematocrit 32.7(L) 35.7 - 45.8 % [facility] Mean Cell Volume 95.1(H) 82.6 - 94.4 fL [facility] Mean Cell Hemoglobin 32.3(H) 27.1 - 32.0 pg [facility] Mean Cell Hemoglobin Concentration 33.9 31.7 - 35.0 g/dL [facility] Platelet 165 145 - 357 x10(3)/[facility] RDW Standard Deviation 43.1 37.0 - 46.0 fL [facility] RDW coefficient of variation 12.7 11.5 - 14.1 % [facility] Mean Platelet Volume 10.1 7.6 - 12.9 fL [facility] NRBC% auto 0.0 % [facility] NRBC Absolute 0.000 0.000 - 0.000 x10(3)/mc L [facility] Blood 05/11/2023 4:42 AM EDT 05/11/2023 4:49 AM EDT Narrative Resulting Agency Comment Spec In Lab Klaudia Reid MD HEMATOLOGY OR DERABLES Performing Organization Address [facility] Co de Phone Number [facility] [place] [address] * Heparin (unfractionated) Level (05/11/2023 4:42 AM EDT) UF Heparin 0.46 IU/mL [facility] Comment: Heparin (anti-Xa) levels should be [...] MD HEMATOLOGY ORDERAB LES Performing Organization Address [facility] Co de Phone Number [facility] [place] [address] * (ABNORMAL) Comprehensive metabolic panel (non-fasting) (05/11/2023 4:42 AM EDT) Glucose 143 65 - 199 mg/dL [facility] Comment:Diabetes: >=200 mg/d L plus symptoms Blood Urea Nitrogen 42(H) 8 - 18 mg/dL [facility] Creatinine 1.24(H) 0.70 - 1.20 mg/dL [facility] Sodium 134(L) 135 - 145 mmol/L [facility] Potassium 4.6 3.5 - 5.0 mmol/L [facility] Comment: Please note: ??Patients with WBC >100,000 may have falsely elevated Potassium levels. ??For accurate Potassium quantification in these patients send serum separator tube (gold top) for subsequent determinations. ??Contact the Clinical Chemistry Laboratory if there are any questions. Chloride 99 98 - 107 mmol/L [facility] Carbon Dioxide 14(L) 22 - 31 mmol/L [facility] Anion Gap 21(H) 5 - 15 mmol/L [facility] Calcium 9.6 8.5 - 10.5 mg/dL [facility] Protein, Total 7.2 6.1 - 8.0 g/dL [facility] Albumin 3.7 3.2 - 5.2 g/dL [facility] Aspartate Aminotransferase 144(H) 0 - 30 unit/L [facility] Comment:result rechecked-ssc Alanine Aminotransferase 130(H) 0 - 30 unit/L [facility] Comment:result rechecked-ssc Alkaline Phosphatase 72 35 - 105 unit/L [facility] Bilirubin, Total 0.8 0.2 - 1.3 mg/dL [facility] Est Glomerular Filtration Rate 48(L) >=60 mL/min/1. 73 m?? [facility] [...] Lab Radha Hollins MD CHEMISTRY ORDERABL ES [facility] [place] [address] * EKG 12 Lead (05/10/2023 1:16 PM EDT) Ventricular rate 118 BPM MUSE SYSTEM Atrial Rate 118 BPM MUSE SYSTEM P-R Interval 152 ms MUSE SYSTEM QRS Duration 104 ms MUSE SYSTEM Q-T Interval 316 ms MUSE SYSTEM QTC Calculated (Bezet) 442 ms MUSE SYSTEM Calculated P [place] 29 degrees MUSE SYSTEM Calculated R [place] 18 degrees MUSE SYSTEM Calculated T [place] -173 degrees MUSE SYSTEM INTERPRETATION Sinus tachycardia [...] Anterior leads Confirmed by MD Mono, Eleni ([id number]) on 05/10/2023 8:47:46 PM MUSE SYSTEM 05/10/2023 1:16 PM EDT 05/10/2023 8:47 PM EDT Juan Luis Gonzalez MD ECG ORDERABLES Performing Organization Address City/[facility]/ZIP Co de Phone Number MUSE SYSTEM * Lactate, whole blood, send to lab ([facility] (05/10/2023 11:52 AM EDT) Pathologist [facility] [place] Lactate WB 1.8 0.5 - 2.2 mmol/L [facility] Blood 05/10/2023 11:5 2 AM EDT 05/10/2023 12:13 PM EDT Narrative Resulting Agency Comment Spec In Lab Juan Luis Gonzalez MD CHEMISTRY ORDERABLES [facility] [place] [address] * XR Chest One View (05/10/2023 11:16 [...] questions please contact the health child care associate that requested your imaging first. ? Electronically signed by: ALIX RUVALCABA MD, [facility] ([phone]), at 05/10/2023 1:25 PM Narrative 05/10/2023 1:25 [...] have questions please contactthe health child care associate that requested your imaging first. Electronically signed by: ALIX RUVALCABA MD, [facility]([phone]), at 05/10/2023 1:25 PM Juan Luis Gonzalez MD IMG DX ORDERABLES * EKG 12 Lead (05/10/2023 7:59 AM EDT) Ventricular rate 115 BPM MUSE SYSTEM Atrial Rate 115 BPM MUSE SYSTEM P-R Interval 142 ms MUSE SYSTEM QRS Duration 102 ms MUSE SYSTEM Q-T Interval 322 ms MUSE SYSTEM QTC Calculated (Bezet) 445 ms MUSE SYSTEM Calculated P [place] 36 degrees MUSE SYSTEM Calculated R [place] 28 degrees MUSE SYSTEM Calculated T [place] -119 degrees MUSE SYSTEM INTERPRETATION Sinus tachycardia with frequent Premature ventricular complexes and Fusion complexes ST & T wave abnormality, consider lateral ischemia Abnormal ECG When compared with ECG of 08-MAY-2023 15:51, No significant change was found I personally reviewed the tracing and edited the fellows interpretation Confirmed by fellow MD Anitha, Carissa ([id number]) on 05/11/2023 6:19:54 AM Confirmed by MD Tram, Chel ([id number]) on 05/11/2023 3:18:56 PM MUSE SYSTEM 05/10/2023 7:59 AM EDT 05/11/2023 3:18 PM EDT Radha Hollins MD ECG ORDERABLES MUSE SYSTEM * (ABNORMAL) Differential, Automated (05/10/2023 2:28 AM EDT) Neutrophil % 77.1 % [facility] Neutrophil Absolute 4.01 1.70 - 6.10 x10(3)/mc L [facility] Lymph % 14.0 % [facility] Lymphocytes Abs 0.7(L) 0.9 - 3.2 x10(3)/mc L [facility] Monocyte % 7.7 % [facility] Monocyte Abs 0.4 0.3 - 0.9 x10(3)/mc L [facility] Eos % 0.4 % [facility] Eosinophils Abs 0.0 0.0 - 0.4 x10(3)/ L [facility] Basophil % 0.4 % [facility] Baso Absolute 0.0 0.0 - 0.1 x10(3)/ L [facility] Immature Gran % 0.40 % [facility] Comment: Immature granulocytes(IG's)percentage and absolute count will include metamyelocytes, myelocytes, and promyelocytes. Blood smears from CBCs yielding IG's will be scanned manually for concordance. If this scan disagrees with the automated IG or if promyelocytes are noted, a manual differential will be performed. Immature Gran Absolute 0.02 0.00 - 0.04 x10(3)/[facility] Blood 05/10/2023 2:28 AM EDT 05/10/2023 2:57 AM EDT Narrative Resulting Agency Comment Spec In Lab Klaudia Reid MD HEMATOLOGY OR DERABLES [facility] [place] [address] * (ABNORMAL) Hemogram (05/10/2023 2:28 AM EDT) White Blood Cell 5.2 4.0 - 9.5 x10(3)/ L [facility] Red Blood Cell 3.11(L) 4.00 - 5.21 x10(6)/mc L [facility] Hemoglobin 10.2(L) 11.7 - 15.5 g/dL [facility] Hematocrit 30.2(L) 35.7 - 45.8 % [facility] Mean Cell Volume 97.1(H) 82.6 - 94.4 fL [facility] Mean Cell Hemoglobin 32.8(H) 27.1 - 32.0 pg [facility] Mean Cell Hemoglobin Concentration 33.8 31.7 - 35.0 g/dL [facility] Platelet 151 145 - 357 x10(3)/ L [facility] RDW Standard Deviation 44.9 37.0 - 46.0 fL [facility] RDW coefficient of variation 12.8 11.5 - 14.1 % [facility] Mean Platelet Volume 9.8 7.6 - 12.9 fL [facility] NRBC% auto 0.0 % [facility] NRBC Absolute 0.000 0.000 - 0.000 x10(3)/mc L [facility] Blood 05/10/2023 2:28 AM EDT 05/10/2023 2:57 AM EDT Narrative Resulting Agency Comment Spec In Lab Klaudia Reid MD HEMATOLOGY OR DERABLES Performing Organization Address City/State/[facility] Co de Phone Number [facility] [place] [address] * (ABNORMAL) Comprehensive metabolic panel (non-fasting) (05/10/2023 2:28 AM EDT) Glucose 100 65 - 199 mg/dL [facility] Comment:Diabetes: >=200 mg/d L plus symptoms Blood Urea Nitrogen 30(H) 8 - 18 mg/dL [facility] Creatinine 0.90 0.70 - 1.20 mg/dL [facility] Sodium 134(L) 135 - 145 mmol/L [facility] Potassium 4.1 3.5 - 5.0 mmol/L [facility] Comment: Please note: ??Patients with WBC >100,000 may have falsely elevated Potassium levels. ??For accurate Potassium quantification in these patients send serum separator tube (gold top) for subsequent determinations. ??Contact the Clinical Chemistry Laboratory if there are any questions. Chloride 102 98 - 107 mmol/L [facility] Carbon Dioxide 20(L) 22 - 31 mmol/L [facility] Anion Gap 12 5 - 15 mmol/L [facility] Calcium 9.3 8.5 - 10.5 mg/dL [facility] Protein, Total 6.4 6.1 - 8.0 g/dL [facility] Albumin 3.7 3.2 - 5.2 g/dL [facility] Aspartate Aminotransferase 24 0 - 30 unit/L [facility] Alanine Aminotransferase 14 0 - 30 unit/L [facility] Alkaline Phosphatase 70 35 - 105 unit/L [facility] Bilirubin, Total 0.5 0.2 - 1.3 mg/dL [facility] Est Glomerular Filtration Rate 70 >=60 mL/min/1. 73 m?? [facility] Comment: This patient's estimated [...] Lab Radha Hollins MD CHEMISTRY ORDERABL ES [facility] [place] [address] * Heparin (unfractionated) Level (05/10/2023 2:28 AM EDT) UF Heparin 0.37 IU/mL [facility] Comment: Heparin (anti-Xa) [...] Lab Radha Hollins MD [place] [address] * (ABNORMAL) Differential, Automated (05/09/2023 4:00 AM EDT) Neutrophil % 81.7 % [facility] Neutrophil Absolute 5.26 1.70 - 6.10 x10(3)/mc L [facility] Lymph % 10.7 % [facility] Lymphocytes Abs 0.7(L) 0.9 - 3.2 x10(3)/mc L [facility] Monocyte % 6.5 % [facility] Monocyte Abs 0.4 0.3 - 0.9 x10(3)/mc L [facility] Eos % 0.5 % [facility] Eosinophils Abs 0.0 0.0 - 0.4 x10(3)/mc L [facility] Basophil % 0.3 % [facility] LABORATORY Baso Absolute 0.0 0.0 - 0.1 x10(3)/mc L [facility] Immature Gran % 0.30 % [facility] Comment: Immature granulocytes(IG's)percentage and absolute count will include metamyelocytes, myelocytes, and promyelocytes. Blood smears from CBCs yielding IG's will be scanned manually for concordance. If this scan disagrees with the automated IG or if promyelocytes are noted, a manual differential will be performed. Immature Gran Absolute 0.02 0.00 - 0.04 x10(3)/mc L [facility] Blood 05/09/2023 4:00 AM EDT 05/09/2023 4:19 AM EDT Narrative Resulting Agency Comment Spec In Lab Klaudia Reid MD HEMATOLOGY OR DERABLES Performing Organization Address City/[facility]/ZIP Co de Phone Number [facility] [place] [address] * (ABNORMAL) Hemogram (05/09/2023 4:00 AM EDT) White Blood Cell 6.4 4.0 - 9.5 x10(3)/mc L [facility] Red Blood Cell 3.15(L) 4.00 - 5.21 x10(6)/mc L [facility] Hemoglobin 10.2(L) 11.7 - 15.5 g/dL [facility] Hematocrit 30.3(L) 35.7 - 45.8 % [facility] Mean Cell Volume 96.2(H) 82.6 - 94.4 fL [facility] Mean Cell Hemoglobin 32.4(H) 27.1 - 32.0 pg [facility] Mean Cell Hemoglobin Concentration 33.7 31.7 - 35.0 g/dL [facility] Platelet 151 145 - 357 x10(3)/mc L [facility] RDW Standard Deviation 44.7 37.0 - 46.0 fL [facility] RDW coefficient of variation 12.8 11.5 - 14.1 % [facility] Mean Platelet Volume 9.4 7.6 - 12.9 fL [facility] NRBC% auto 0.0 % [facility] NRBC Absolute 0.000 0.000 - 0.000 x10(3)/ L [facility] Blood 05/09/2023 4:00 AM EDT 05/09/2023 4:19 AM EDT Narrative Resulting Agency Comment Spec In Lab Klaudia Reid MD HEMATOLOGY OR DERABLES Performing Organization Address City/State/[facility] Co de Phone Number [facility] [place] [address] * Heparin (unfractionated) Level (05/09/2023 4:00 AM EDT) UF Heparin 0.47 IU/mL [facility] Comment: Heparin (anti-Xa) levels should [...] Lab Radha Hollins MD HEMATOLOGY ORDERAB LES [facility] [place] [address] * (ABNORMAL) Comprehensive metabolic panel (non-fasting) (05/09/2023 4:00 AM EDT) Glucose 108 65 - 199 mg/dL [facility] Comment:Diabetes: >=200 mg/d L plus symptoms Blood Urea Nitrogen 31(H) 8 - 18 mg/dL [facility] Creatinine 1.03 0.70 - 1.20 mg/dL [facility] Sodium 137 135 - 145 mmol/L [facility] Potassium 4.4 3.5 - 5.0 mmol/L [facility] Comment: Please note: ??Patients with WBC >100,000 may have falsely elevated Potassium levels. ??For accurate Potassium quantification in these patients send serum separator tube (gold top) for subsequent determinations. ??Contact the Clinical Chemistry Laboratory if there are any questions. Chloride 102 98 - 107 mmol/L [facility] Carbon Dioxide 20(L) 22 - 31 mmol/L [facility] Anion Gap 15 5 - 15 mmol/L [facility] Calcium 9.3 8.5 - 10.5 mg/dL [facility] Protein, Total 6.6 6.1 - 8.0 g/dL [facility] Albumin 3.8 3.2 - 5.2 g/dL [facility] Aspartate Aminotransferase 32(H) 0 - 30 unit/L [facility] Alanine Aminotransferase 18 0 - 30 unit/L [facility] Alkaline Phosphatase 78 35 - 105 unit/L [facility] Bilirubin, Total 0.5 0.2 - 1.3 mg/dL [facility] Est Glomerular Filtration Rate 60 >=60 mL/min/1. 73 m?? [facility] [...] MD CHEMISTRY ORDERABL ES Performing Organization Address [facility] Co de Phone Number [facility] [place] [address] * (ABNORMAL) pro-Brain Natriuretic Peptide (05/08/2023 4:00 PM EDT) NT-proBNP 25,503(H) <=124 pg/mL [facility] Blood Venous Draw / Unknown 05/08/2023 4:00 PM EDT 05/08/2023 4:25 PM EDT Narrative Resulting Agency Comment Spec In Lab Juan Luis Gonzalez MD CHEMISTRY ORDERABLES Performing Organization Address [facility] Co de Phone Number [facility] [place] [address] * Magnesium (05/08/2023 4:00 PM EDT) Magnesium 0.82 0.69 - 1.07 mmol/L [facility] Blood 05/08/2023 4:00 PM EDT 05/08/2023 4:06 PM EDT Narrative Resulting Agency Comment Spec In Lab Enrique Chua MD CHEMISTRY ORDERABLES Performing Organization Address [facility] Co de Phone Number [facility] [place] [address] * Potassium (05/08/2023 4:00 PM EDT) Potassium 3.9 3.5 - 5.0 mmol/L [facility] Comment: Please note: ??Patients [...] MD CHEMISTRY ORDERABL ES Performing Organization Address [facility] Co de Phone Number [facility] [place] [address] * Heparin (unfractionated) Level (05/08/2023 4:00 PM EDT) UF Heparin 0.43 IU/mL [facility] Comment: Heparin (anti-Xa) levels should be [...] MD HEMATOLOGY ORDERAB LES Performing Organization Address [facility]/ZIP Co de Phone Number [facility] [place] [address] * EKG 12 Lead (05/08/2023 3:51 PM EDT) Ventricular rate 98 BPM MUSE SYSTEM Atrial Rate 98 BPM MUSE SYSTEM P-R Interval 150 ms MUSE SYSTEM QRS Duration 102 ms MUSE SYSTEM Q-T Interval 358 ms MUSE SYSTEM QTC Calculated (Bezet) 457 ms MUSE SYSTEM Calculated P [place] 38 degrees MUSE SYSTEM Calculated R [place] 48 degrees MUSE SYSTEM Calculated T [place] -112 degrees MUSE SYSTEM INTERPRETATION Sinus rhythm with frequent and consecutive Premature ventricular and fusion complexes Septal infarct , age undetermined ST & T wave abnormality, consider anterolateral ischemia Abnormal ECG When compared with ECG of 09-NOV-2022 11:17, T wave inversion now evident in Anterolateral leads Confirmed by MD Harshil, Enrique Bell ([id number]) on 05/10/2023 8:11:46 AM MUSE SYSTEM 05/08/2023 3:51 PM EDT 05/10/2023 8:11 AM EDT Radah Hollins MD ECG ORDERABLES MUSE SYSTEM * (ABNORMAL) Differential, Automated (05/08/2023 11:38 AM EDT) Pathologist [facility] [place] Neutrophil % 71.3 % [facility] Neutrophil Absolute 2.91 1.70 - 6.10 x10(3)/mc L [facility] Lymph % 19.1 % [facility] Lymphocytes Abs 0.8(L) 0.9 - 3.2 x10(3)/mc L [facility] Monocyte % 9.0 % [facility] Monocyte Abs 0.4 0.3 - 0.9 x10(3)/mc L [facility] Eos % 0.2 % [facility] Eosinophils Abs 0.0 0.0 - 0.4 x10(3)/mc L [facility] Basophil % 0.2 % [facility] Baso Absolute 0.0 0.0 - [...] Absolute 0.01 0.00 - 0.04 x10(3)/mc L [facility] Blood 05/08/2023 11:3 8 AM EDT 05/08/2023 11:44 AM EDT Narrative Resulting Agency Comment Spec In Lab Lincoln Sal MD HEMATOLOGY ORDERA BLES [facility] [place] [address] * (ABNORMAL) Hemogram (05/08/2023 11:38 AM EDT) White Blood Cell 4.1 4.0 - 9.5 x10(3)/mc L [facility] Red Blood Cell 3.05(L) 4.00 - 5.21 x10(6)/[facility] Hemoglobin 10.2(L) 11.7 - 15.5 g/dL [facility] Hematocrit 29.6(L) 35.7 - 45.8 % [facility] Mean Cell Volume 97.0(H) 82.6 - 94.4 fL [facility] Mean Cell Hemoglobin 33.4(H) 27.1 - 32.0 pg [facility] Mean Cell Hemoglobin Concentration 34.5 31.7 - 35.0 g/dL [facility] Platelet 136(L) 145 - 357 x10(3)/mc L [facility] RDW Standard Deviation 44.3 37.0 - 46.0 fL [facility] RDW coefficient of variation 12.6 11.5 - 14.1 % [facility] Mean Platelet Volume 9.4 7.6 - 12.9 fL [facility] NRBC% auto 0.0 % [facility] NRBC Absolute 0.000 0.000 - 0.000 x10(3)/mc L [facility] Blood 05/08/2023 11:3 8 AM EDT 05/08/2023 11:44 AM EDT Narrative Resulting Agency Comment Spec In Lab Lincoln Sal MD HEMATOLOGY ORDERA BLES Performing Organization Address City/[facility] Co de Phone Number [facility] [place] [address] * TSH (05/08/2023 11:38 AM EDT) Thyroid Stimulating Hormone 1.27 0.27 - 4.20 mcIU/mL [facility] Comment: Reference Interval (mcIU/mL): Females: ??First Trimester: 0.23-3.88 ??Second Trimester: 0.22-3.90 ??Third Trimester: 0.44-4.66 Blood 05/08/2023 11:3 8 AM EDT 05/08/2023 11:44 AM EDT Narrative Resulting Agency Comment Spec In Lab Enrique Chua MD CHEMISTRY ORDERABLES Performing Organization Address [facility] Co de Phone Number [facility] [place] [address] * (ABNORMAL) Phosphorus (05/08/2023 11:38 AM EDT) Phosphorus 4.7(H) 2.5 - 4.5 mg/dL [facility] Blood 05/08/2023 11:3 8 AM EDT 05/08/2023 11:44 AM EDT Narrative Resulting Agency Comment Spec In Lab Enrique Chua MD CHEMISTRY ORDERABLES Performing Organization Address City/[facility] Co de Phone Number [facility] [place] [address] * Magnesium (05/08/2023 11:38 AM EDT) Magnesium 0.76 0.69 - 1.07 mmol/L [facility] Blood 05/08/2023 11:3 8 AM EDT 05/08/2023 11:44 AM EDT Narrative Resulting Agency Comment Spec In Lab Enrique Chua MD CHEMISTRY ORDERABLES Performing Organization Address City/[facility]/ZIP Co de Phone Number [facility] [place] [address] * (ABNORMAL) Basic Metabolic Panel (non-fasting) (05/08/2023 11:38 AM EDT) Glucose 97 65 - 199 mg/dL [facility] Comment:Diabetes: >=200 mg/d L plus symptoms Blood Urea Nitrogen 27(H) 8 - 18 mg/dL [facility] Creatinine 1.02 0.70 - 1.20 mg/dL [facility] Sodium 139 135 - 145 mmol/L [facility] Potassium 4.2 3.5 - 5.0 mmol/L [facility] Comment: Please note: ??Patients with WBC >100,000 may have falsely elevated Potassium levels. ??For accurate Potassium quantification in these patients send serum separator tube (gold top) for subsequent determinations. ??Contact the Clinical Chemistry Laboratory if there are any questions. Chloride 105 98 - 107 mmol/L [facility] Carbon Dioxide 20(L) 22 - 31 mmol/L [facility] Anion Gap 14 5 - 15 mmol/L [facility] Calcium 9.4 8.5 - 10.5 mg/dL [facility] Est Glomerular Filtration Rate 60 >=60 mL/min/1. 73 m?? [facility] [...] In Lab Enrique Chua MD CHEMISTRY ORDERABLES [facility] [place] [address] * ECHO COMPLETE (05/08/2023 11:02 AM EDT) EF 25 HEARTLAB SYSTEM Anatomical Region Laterality Modality Cardiac Other 05/08/2023 10:0 3 AM EDT Narrative 05/08/2023 11:51 AM EDT ? Echocardiogram Report Name: PURNIMA THACKER ?Study Date: 05/08/2023 10:03 AMBP: 92/64 mmHg ? Patient Location: [facility]^CV29^A : 1955 ? Height: 155 cm ? Account: [id number] Age: 67 yrs ? Weight: 78 kg Gender: Female ?BSA: 1.8 m2 Ordering Physician: ENRIQUE CHUA Referring Physician: MARIO ALBERTO CHIN Performed By: CHUCKIE Canchola Reason For Study: SAVR Stenosis Exam Location: [facility]. Interpretation Summary -Left ventricle is [...] worsening stenosis. Mitral regurgitation is similar. Procedure Complete-[id number]. Satisfactory quality. There is normal sinus rhythm. [...] Study Date: 0:03 AMBP: 92/64 mmHg Patient Location:[facility]^CV29^A : 1955 Height: 155 cm Account: [id number] Age: 67 yrs Weight: 78 kg Gender: Female BSA: 1.8 m2 Ordering Physician: ENRIQUE CHUA Referring Physician: MARIO ALBERTO CHIN Performed By: CHUCKIE Canchola Reason For Study: SAVR Stenosis Exam Location: [facility]. Interpretation Summary -Left ventricle is [...] suggestsworsening stenosis. Mitral regurgitation is similar. Procedure Complete-[id number]. Satisfactory quality. There is normal sinus rhythm. 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 11/09/2022 Mixed connective tissue disease Other [...] [facility] 11/09/2022 Stenosis of prosthetic aortic valve [...] dose on Wed05/12/23 at 1030, Until Discontinued, [place] teeth, Routine Given 05/12/2023 10:04 AM EDT [...] at 0831, Side port TKO rate, per [facility] flush protocol Rate/Dose Verify 05/13/2023 6:00 AM EDT 10 mL/hr 10 mL/hr Rate/Dose Verify 05/13/2023 4:00 AM EDT 10 mL/hr 10 mL/h r Rate/Dose Verify 05/13/2023 2:00 AM EDT 10 mL/hr 10 mL/h r sodium chloride 0.9% infusion 10-30 mL/hr, Intravenous, DAILY PRN, Starting on Wed05/12/23 at 0944, Until Wed05/17/23 at 0831, Side port TKO rate, per [facility] flush protocol. Rate/Dose Verify 05/17/2023 [...] Gabino Calhoun RN)2054 (Given - Provider: Favian cMkeon RN) 08 (Given - Provider: Kia Gallego, [...] in this encounter Care Teams Food And Drug Research Scientist Relationship Specialty Start Date End Date Magdalena Acosta MD [address] [place] [address] PCP - General Family Medicine 02/05/23 documented as of this encounter
--- OUTSIDE RECORDS SUMMARY | 2024-06-13 14:11 | XMS_ITS | Encounter Summary ---
Author Organization [facility] Address [facility] [place] [address] Care Team Providers Care Mailmaster Name Role Phone Magdalena Acosta MD Primary Care Provider [phone] Encounter Details Date Type Department Care Team [...] EST Office Visit Hematology [place] [address] Markel Borjas MD [facility] [address] [place] [address] 11/02/2024 12:00 PM EDT Appointment [place] [phone] 11/02/2024 1:00 PM EDT Office [place] [address] Magdalena Peralta MD [facility] [place] [address] 03/01/2025 4:15 PM EDT Office Visit Dermatology at [place] [address] [place] [phone] Marek Bonilla MD [address] [place] [address] documented as of this encounter Visit Diagnoses Not on filedocumented in this encounter Care Teams Mailmaster Relationship Specialty Start Date End Date Magdalena Acosta MD [address] [place] [address] PCP - General Family Medicine 02/05/23 documented as of this encounter
--- OUTSIDE RECORDS SUMMARY | 2024-06-13 14:12 | XMS_ITS | Encounter Summary ---
Author Organization [facility] [place] [address] Care Team Providers Care Tank Car Cleaner Name Role Phone Magdalena Acosta MD Primary Care Provider [phone] Encounter Details Date Type Department Care Team [...] Visit Hematology and Oncology at [place] [phone] Markel Borjas MD [facility] [address] HEMATOLOGY [place] [address] 11/02/2024 12:00 PM EDT Appointment [place] [address] 11/02/2024 1:00 PM EDT Office [place] [address] Magdalena Peralta MD [facility] [place] [address] 03/01/2025 4:15 PM EDT Office Visit Dermatology at [place] [address] [place] [phone] Marek Bonilla MD [address] [place] [address] documented as of this encounter Visit Diagnoses Not on filedocumented in this encounter Care Teams Tank Car Cleaner Relationship Specialty Start Date End Date Magdalena Acosta MD [address] [place] [address] PCP - General Family Medicine 02/05/23 documented as of this encounter
--- OUTSIDE RECORDS SUMMARY | 2024-06-13 14:12 | XMS_ITS | Encounter Summary ---
Author Organization [facility] [place] [address] Care Team Providers Care Supervisor Operations Name Role Phone Magdalena Acosta MD Primary Care Provider Encounter Details Date Type Department Care Team (Late st Contact Info) Description 05/08/2023 [place] [phone] Luis Felipe Ott MD [facility] [place] [address] Social History Tobacco Use Types Packs/Day Years [...] Referring Provider: Nitesh Baltazar Patient [facility]: [facility] Presenting Symptoms per OSH: 67 year [...] diuresis with IV furosemide 20 x 1 ([id number] at rheumatology appointment), SpO2 85% on RA -> 95% on 2L NC, HR 120s. Examination significant for decreased breath sounds at the bases. Pertinent Diagnostic Findings: CBC - Hgb 10.5 CMP - Cr 1.1 BNP 66907 HsTrop 1358 Lactate 1.6 D-dimer 1183, CTPE pending CXR demonstrated pulmonary vascular congestion US showed bilateral b lines Bedside echo reportedly similar to prior TTE for LV function OSH Interventions: ASA 324 Heparin gtt Plan: Transfer to [facility] Above recommendations/plans are based on my conversation with the referring provider. I have not personally interviewed or examined this patient. Luis Felipe Ott MD Engagement Director Received a call from provider emergently at 715am. Mentating well and BP 87/53. HR 108 and diursingwell. They were about to start phenylephrine which I stressed was not a good option given concern for severe and increasing afterload. She is warm on exam, mentating and urinating and we do not need to amrit a BP if those things remain stable. Nico Segura, PGY-6 Engagement Director [id number] documented in this encounter Plan of Treatment Upcoming Encounters Date Type Department Care Team (Late st Contact Info) Description 06/23/2024 2:00 PM EST Office Visit Hematology [place] [address] Markel Borjas MD [facility] [place] [address] 11/02/2024 12:00 PM EDT Appointment [place] [phone] 11/02/2024 1:00 PM EDT Office [place] [address] Magdalena Peralta MD [facility] [place] [address] 03/01/2025 4:15 PM EDT Office Visit Dermatology at [place] [address] [place] [phone] Marek Bonilla MD [address] [facility] [place] [address] documented as of this encounter Visit Diagnoses Not on filedocumented in this encounter Care Teams Supervisor Operations Relationship Specialty Start Date End Date Magdalena cAosta MD [address] [place] [address] PCP - General Family Medicine 02/05/23 documented as of this encounter
--- OUTSIDE RECORDS SUMMARY | 2024-06-13 14:12 | XMS_ITS | Encounter Summary ---
Author Organization [facility] [place] [address] Care Team Providers Care [place] Name Role Phone Magdalena Acosta MD Primary Care Provider [phone] Reason for Visit * Auth/Cert (Routine) Specialty Diagnoses / Procedures Referred By Contac t Referred To Contact Diagnoses Symptomatic severe aortic stenosis with low ejection fraction NSTEMI, CHF Enrique Chua MD [facility] [place] [address] [facility] Referral ID Status Reason Start Date Expiration Date Visits Re quested Visits Authorized [id number] 1 1 Encounter Details Date Type Department Care Team (Late st Contact Info) Description 05/12/2023 2:50 PM EDT - 05/12/2023 3:50 PM EDT [place] [address] Antelmo Sharma MD [facility] [place] [address] CARDIAC CATHETERIZATION Social History Tobacco Use Types [...] Patient Age: 67 y.o. Birthdate: 1955 Language: New Zealander Race: White Ethnicity: Not nor Admit Date: 05/08/2023 Discharge Date: 05/22/2023 Attending Physician: Alirio Hudson MD Follow-up Recommendations for Providers: Please continue routine management of cardiovascular risk factors including blood pressure, lipids,glucose, etc. Please note any medication changes. Patient to follow up with PCP, Magdalena Acosta MD, or Primary Circuit Breaker Assembler, Avis Mejia MD, in ~ 7-10 days. Patient to follow up with Operations And Maintenance Supervisor, Dr. Antelmo Sharma, in 2 weeks with an EKG, Echo, CBC, and CMP. Patient to follow up with Nephrology, their office to arrange. Nesz-Gbrukj-bk interval: After initial 30 day follow-up appointment , all TAVR patients will follow-up again in one year with an echo. 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 Left coronary protection with left main MINNA. Hospital Course: #Severe prosthetic s/p valve in valve TF TAVR #Low coronary heights s/p left main stent for coronary protection #Type 2 NSTEMI, present on arrival, resolved #Acute decompensated HFrEF #Cardiogenic shock #EVANS / Cardiorenal syndrome Purnima Thacker was admitted to [place] on 05/08/2023 via the Cardiology Service with [...] TAVR and she was brought to the terrazzo laborer the following morning where Drs. Alirio [...] if you have questions. Please call your Operations And Maintenance Supervisor's office if you have any discharge or drainage from your procedural sites. Your Operations And Maintenance Supervisor, Dr. Antelmo Sharma and/or the Customer Services Coordinator may be reached at . Antibiotic [...] of this card. Please refer to the [place] Heart Association [...] low fat, low cholesterol, [place] Heart Association Diet Driving: No restrictions. Shower/Bath: You may shower daily. No baths, soaking, or swimming for the first week. Wound care: Wash the sites daily with soap and rinse well, pat dry. Assess for any signs of infection such as increased redness, pain, warmth or drainage. Please call your beef specialist's office if you have any discharge or drainage from your procedural sites. If there is a lot of swelling, apply mamta wraps during the day and remove at bedtime. Elevate your legs when you are sitting. Home oxygen therapy: N/A Follow up appointments: Please schedule a follow-up appointment with your PCP, Magdalena Acosta MD, or Primary Circuit Breaker Assembler in ~ 7-10 days. You have a follow-up appointment with your Operations And Maintenance Supervisor, Dr. Antelmo Sharma, in 2 weeks with an EKG, Echo, and labs prior to your appointment. You will need follow-up with Nephrology, their office will arrange. Uurr-Qmotvc-zp interval: After initial 30 day follow-up appointment , all TAVR patients will follow-up again in one year with an echo. Cardiac Rehabilitation: Purnima Thacker was seen today regarding participation in the outpatient Phase 2 Cardiac Rehabilitation at [facility]. The patient agrees to a referral to this program. The referral will be sent at discharge and the patient should be contacted by the Program within 1- 2 weeks from discharge. Future Appointments and Orders Future Appointments and Orders Future Appointments Provider Department Dept Phone 07/29/2023 11:00 AM Magdalena Peralta MD Rheumatology at [facility] Arrive at: [facility] [phone] 02/11/2024 2:00 PM Marek Bonilla MD Dermatology at [place] Arrive at: [facility] [address] [phone] Future Orders Complete By Expires Type and Screen Future Surgery, [facility] SAME DAY PROGRAM ONLY) [RTQ9300 Custom] 05/11/2023 Process Instructions: This test is intended ONLY for patients with upcoming surgery for testing prior to the day of surgery obtained through the same day program (4V or SDP). For ALL OTHER PATIENTS, order a Type and Screen (XGO082) This order includes the physician order for an ABO Recheck if requested by the Blood Bank. Scheduling Instructions: Comments: Questions: Date of surgery: CBC (with Diff) [VQG545 Custom] 06/05/2023 12/05/2023 Process Instructions: INCLUDES: WBC, RBC, Hgb, Hct, Platelets, RBC Indices and Differential Scheduling Instructions: Comments: Questions: Comprehensive metabolic panel (non-fasting) [LAB17 Custom] 06/05/2023 08/20/2023 Process Instructions: INCLUDES: Calcium, T Protein, Albumin, AST, ALT, Alk Phos, T Bili, BUN, Creat, GFR, Glucose, Lytes. Scheduling Instructions: Comments: Questions: Echocardiogram Transthoracic [20333 CPT(R)] 06/05/2023 12/05/2023 Process Instructions: Scheduling Instructions: Questions: Where will study be performed?: [facility] Clinics Does the patient have Congenital Heart Disease?: Does patient require sedation?: GA rationale: EKG 12 Lead [42510 CPT(R)] 06/05/2023 12/05/2023 Process Instructions: Scheduling Instructions: Questions: Which location will this be performed?: [place] Is a rhythm strip needed?: No [employer] Devices [EQ161 Custom] As directed Process Instructions: Scheduling Instructions: Questions: Device Needed: WALKER (E0143) Patient Height (cm): 154.9 cm (5' 0.98) Patient Weight: 75.4 kg (166 lb 3.2 oz) Diagnosis: Unsteady gait when walking Referral to Cardiac Rehab [BNC488 Custom] As directed Process Instructions: If no progress note charted, please enter Clinical details in comments. Scheduling Instructions: Questions: My question or request is: s/p TAVR. Cardiac rehab at [facility]. Referral to Home Health [REF34 Custom] As directed Process Instructions: If no progress note charted, please enter Clinical details in comments. Scheduling Instructions: Comments: DOCUMENTATION FOR VNA SERVICES PATIENT'S LOCATION: Purnima Thacker [address] [place] [phone] (home) Compensation Advisor's Name: Irineo and brother Raymond In discussion with the attending physician, it is certified that this patient is under his/her careand that MD, or an TUBE DRAW HELPER, GLOBAL CLINICAL LEADER, or PA who is working directly with him/her, had a qcuq-pd-ikcw encounter that meets the physician wrwh-zx-sgve encounter requirements with this patient on 05/22/2023. [...] for managing ADLs. HOME HEALTH CARE AGENCY: [facility]. [address] [facility] [address] PHONE: [phone] FAX: [phone] Start of care: Ideally 24-48 hours after [...] patient's PCP: Magdalena Acosta MD [address] [facility] [phone] All VNA agencies which cover the area of patient's residence have been reviewed, either verbally joao writing, and patient has chosen the home health care agency noted. Questions: Disciplines Requested: Physical Therapy Occupational Therapy Discharge References/Attachments None Arrangements for VNA/home care: As above. (delete if no VNA) Signed: EKATERINA NAVARRETE [place] Section of Cardiac Surgery Date: 05/22/2023 CC: Magdalena Acosta MD [place] ChazyMario Alberto maxwell MD [address] [place] [address] [place] [address] documented in this encounter Discharge Instructions * Patient Instructions* Vinod Juárez PA - 05/22/2023 9:32 AM EDT TAVR Discharge Instructions: Call your doctor if: You have a fever of greater than 101 degrees, shaking chills, if you develop redness or drainage from your procedure sites, or if you have questions. Please call your Operations And Maintenance Supervisor's office if you have any discharge or drainage from your procedural sites. Your Operations And Maintenance Supervisor, Dr. Antelmo Sharma and/or the Customer Services Coordinator may be reached at . Antibiotic [...] of this card. Please refer to the [place] Heart Association [...] low fat, low cholesterol, [place] Heart Association Diet Driving: No restrictions. Shower/Bath: You may shower daily. No baths, soaking, or swimming for the first week. Wound care: Wash the sites daily with soap and rinse well, pat dry. Assess for any signs of infection such as increased redness, pain, warmth or drainage. Please call your beef specialist's office if you have any discharge or drainage from your procedural sites. If there is a lot of swelling, apply mamta wraps during the day and remove at bedtime. Elevate your legs when you are sitting. Home oxygen therapy: N/A Follow up appointments: Please schedule a follow-up appointment with your PCP, Magdalena Acosta MD, or Primary Circuit Breaker Assembler in ~ 7-10 days. You have a follow-up appointment with your Operations And Maintenance Supervisor, Dr. Antelmo Sharma, in 2 weeks with an EKG, Echo, and labs prior to your appointment. You will need follow-up with Nephrology, their office will arrange. Tlal-Deeiom-sa interval: After initial 30 day follow-up appointment , all TAVR patients will follow-up again in one year with an echo. Cardiac Rehabilitation: Purnima Gallegol was seen today regarding participation in the outpatient Phase 2 Cardiac Rehabilitation at [facility]. The patient agrees to a referral [...] ins ( tef) Haven Ba, PT Pager: [phone] Physical Therapy Inpatient Rehabilitation Department * Nico [...] 0600 and on the weekends please page [phone]. * Jory Paniagua - 05/20/2023 3:52 PM [...] vomiting Last Bowel Movement: 05/20/23 Jory Paniagua Petroleum Geologist * Tong Mike, OT - 05/20/2023 3:16 [...] three steps to enter. DME: none used COIN MACHINE SERVICER REPAIRER Baseline ADL/Mobility: Independent with ADLs and IADLs. 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 Total Minutes, Occupational Therapy: 28 ([id number]) OT Evaluation Code Rationale: Diagnosis & Pertinent Co-Morbidities affecting Plan of Care: see PMHx Occupational Profile & Client History: Brief Expanded Extensive x Assessment of Occupational Performance: 1-3 performance deficits 3-5 performance deficits x 5 + performance deficits Clinical Decision Making: Low Moderate High x Clinical decision making of moderate complexity using standardized patient assessment instrument and measurable assessment of functional outcome. Pager: [phone] TONG MIKE OT 05/20/2023 Occupational Therapy Rehabilitation [...] 0600 and on the weekends please page [phone]. * Rylie Rodriguez MD - 05/19/2023 3:59 [...] and plan. Cynthia Blackburn MD Nephrology Pager: [phone] * Diana Espino - 05/19/2023 1:49 PM EDT Production Floater Encounter Note Patient Name: Purnima Thacker : [id number] MR#: [id number] Admit Date: 05/08/2023 9:14 AM Hospital Day [...] as stated. Total Minutes, Physical Therapy: 38 ([phone]) Henrik Navarrete PTA Pager: [phone] Physical Therapy Inpatient Rehabilitation Department * Nico [...] 0600 and on the weekends please page [phone]. * Laure Rikcs PA - 05/19/2023 7:56 AM EDT Images [...] Ricks PA-C Interventional Radiology IR Team Pager [phone] * Consuelo Espinoza RN - 05/18/2023 4:13 PM EDT ANGIO NURSING DATABASE Name: Purnima Thacker Date of : 1955 AGE: 67 y.o. Address: [address] [place] [phone] (home) Mobile: No relevant phone numbers on [...] fraction I35.0 Mild coronary artery disease by [facility] 11/09/2022 I25.10 Heart failure with [...] and plan. Cynthia Blackburn MD Nephrology Pager: [phone] * Magdalena Puri, TRAFFIC LIEUTENANT - 05/18/2023 10:51 AM EDT Images from the original note were [place] [address] STRUCTURAL HEART DISEASE CONSULTATION NOTE PRIMARY CARE [...] stenosis. She is now status post TAVR Mdyyz-kf-Lewba with a 23 mm Lai 3 THV 05/12/[address] Sharma. Preliminary findings: Successful right transfemoral TAVR Jdssd-yk-Dbwmo with a 23 mm Lai 3 THV. [...] ejection fraction Mild coronary artery disease by [facility] 11/09/2022 Heart failure with reduced [...] stenosis. She is now status post TAVR Pjvig-os-Ufnjo with a 23 mm Lai 3 THV [...] Magdalena Puri APRN Structural Heart Team Pager [phone] Team Office Please see addendum by Dr. Sharma for final plan and recommendations Associated attestation - Antelmo Sharma MD - 05/19/2023 10:52 PM EDT I have reviewed Magdalena Puri APRN's above history and I agree with the details as written. The assessment and plan were formulated in discussion with me and I agree with them as documented. Antelmo Sharma MD Pager [phone] * Nico Palacios PA - 05/18/2023 8:13 [...] 0600 and on the weekends please page [phone]. * Loli Hernandez, PT - 05/17/2023 5:27 [...] plan as stated. Time IN / OUT: 6158-4112 Total Minutes, Physical Therapy: 54 Billing Code: te-sx2, te-f, angely HERNANDEZ PT Pager: [phone] Physical Therapy Inpatient Rehabilitation Department * Cynthia [...] Well controlled. Cynthia Blackburn MD Nephrology Pager: [phone] * Maggie, Mara, ANURAG - 05/17/2023 8:26 [...] 0600 and on the weekends please page [phone]. * CurtistierneymeccaGuerda C - 05/16/2023 10:44 AM EDT Nutrition Services Note - Low Nutrition Acuity Purnima Thacker is a 67 y.o. female Reason for intervention: hospital day 9 Nutrition Plan: Continue diet order Encourage good PO Lasix and Zofran noted Added special serve: open containers Monitor weight Patient scheduled for a hospital day 9 nutrition evaluation. Non Destructive Evaluation Manager met with pt at bedside. Pt reports that her appetite and PO has much improved since admission. Denies nausea/vomiting or trouble chewing/swallowing. Non Destructive Evaluation Manager provided snack list but pt not interested in adding snacks at this time. Her only concern was that she is worried that she will eat too much which will cause too much pressure in her stomach. Non Destructive Evaluation Manager assured pt and suggested eating smaller [...] Last Bowel Movement: 05/10/23 Guerda Del Valle Petroleum Geologist * Vinod Juárez PA - 05/16/2023 10:19 [...] 0600 and on the weekends please page [phone]. * Michael Jeffers MD - 05/16/2023 8:11 AM EDT Images from the original note were not included. Hypertension-Nephrology Inpatient Follow-up Purnima Thacker [id number] 1955 ID: 67 y.o. old female seen [...] IRONSAT 12 (L) 05/16/2023 SFOLATE >20.0 07/03/2022 [id number] 07/03/2022 Lab Results Component Value Date [...] Dr. Ayoub. Please contact me at phone: [phone] or pager: [phone] with any questions. Michael Jeffers MD Nephrology [...] -Nephrology consulted, labs and renal US ordered -Uvalde removed, ambulated around the unit -bilateral pleural [...] 0600 and on the weekends please page [phone]. * Hortencia Cody MD - 05/15/2023 2:07 [...] note were not included. Hypertension-Nephrology Inpatient Follow-up uPrnima Thacker [id number] 1955 ID: 67 y.o. old female seen [...] HGB 7.8 (L) 05/13/2023 SFOLATE >20.0 07/03/2022 [id number] 07/03/2022 Lab Results Component Value Date [...] Dr. Ayoub. Please contact me at phone: [phone] or pager: [phone] with any questions. Michael Jeffers MD Nephrology [...] last 720 hours. T/L/D Art ETT CVL [place] ASSESSMENT, MANAGEMENT, and DECISION MAKIN y.o. female [...] outlined inthis evaluation. HAVEN BA, PT Pager: [phone] Physical Therapy Inpatient Rehabilitation Department Time IN / OUT: 2284-4435 Total time: Total Minutes, Physical Therapy: 30 [...] 0600 and on the weekends please page [phone]. * Antelmo Sharma MD - 05/14/2023 7:56 AM EDT Images from the original note were not included. [facility] [address] [place], [place] [phone] STRUCTURAL HEART DISEASE CONSULTATION NOTE PRIMARY CARE [...] stenosis. She is now status post TAVR Kijdg-bt-Mfnpa with a 23 mm Lai 3 THV 05/12/[address] Sharma. Preliminary findings: Successful right transfemoral TAVR Bytdx-av-Yrstd with a 23 mm Lai 3 THV. [...] ejection fraction Mild coronary artery disease by [facility] 11/09/2022 Heart failure with reduced [...] stenosis. She is now status post TAVR Nhivc-nl-Qfnra with a 23 mm Lai 3 THV [...] Brody Kaplan APRN Structural Heart Team Pager [phone] Team Office Please see addendum by Dr. [...] exposure. Nephrology consultationtoday. Antelmo Sharma MD Pager [phone] * Antelmo Cardenas RN - 05/14/2023 5:18 AM EDT Pt AOx4, complaining of mild/moderate generalized pain (states her Meloxicam is effective at home) currently refusing prn oxycodone. NAEON, hemodynamically stable on Milrinone, Maps >65, ST in ioy500's down to NSR with frequent multifocal PVC's. [...] were not [place] [address] [address] STRUCTURAL HEART DISEASE PROGRESS NOTE PRIMARY CARE [...] stenosis. She is now status post TAVR Begld-gm-Gpdpv with a 23 mm Lai 3 THV 05/12/[address] Sharma. Preliminary findings: Successful right transfemoral TAVR Otspb-jv-Dtxhk with a 23 mm Lai 3 THV. [...] ejection fraction Mild coronary artery disease by [facility] 11/09/2022 Heart failure with reduced [...] stenosis. She is now status post TAVR Axoeu-yv-Yjkdk with a 23 mm Lai 3 THV [...] Brody Kaplan APRN Structural Heart Team Pager [phone] Team Office Please see addendum by Dr. [...] DAPT moving forward. Antelmo Sharma MD Pager [phone] * KaBonita stewart PA - 05/13/2023 8:30 AM EDT Cardiac Surgery Progress Note Purnima Thacker is a 67 y.o. 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 PMH of s/p tissue AVR (2017), mixed connective tissue disease HTN, HLD, NICOLAS, diverticulosis, rosacea, essential tremor, and depression. 24h Events: From terrazzo laborer for above procedure Extubated at ~1600 [...] soft b/l, no evidence of hematoma. Tubes/Lines/Drains: Uvalde, RIJ, A-line, Art, PIV Assessment/Plan: 67 y.o. [...] 0600 and on the weekends please page [phone]. * Onelia Schwartz MD - 05/12/2023 1:44 [...] ejection fraction Mild coronary artery disease by [facility] 11/09/2022 Heart failure with reduced [...] FiO2 weaned to 40%. 1105: ABG 7.34/42/73/22 1661-6544: SBT performed and passed on these settings [...] PCP: Magdalena Acosta MD PCP phone number: [phone] Date of Admission: 05/08/2023 ( Hospital Day [...] 0705/12/2331705/12/2310505/11/23193905/11/231446 PHART -- 7.34* 7.34* -- -- EWK3OEM -- 30* 30* -- -- PO2ART -- 72* 81* -- -- AUV8IXP -- 16.0* 15.7* -- -- LACTATEVEN 2.4* 2.7* 2.7* 4.8* 2.9* VBG (Venous Blood Gas) Recent Labs 05/12/23 0700 05/12/2331705/12/2310505/11/23193905/11/231446 LACTATEVEN 2.4* 2.7* 2.7* 4.8* 2.9* Mixed Venous Sat Recent Labs 05/12/23 0508 05/12/23 0321 05/12/23 0114 05/12/23 0030 U3YHUD9 30.7 32.7 37.3 25.1 Objective: Vitals Last [...] who have questions please contact the health cardiac care nurse that requested your imaging first. Cardiac [...] who have questions please contact the health cardiac care nurse that requested your imaging first. Angiogram [...] who have questions please contact the health cardiac care nurse that requested your imaging first. [...] who have questions please contact the health cardiac care nurse that requested your imaging first. [...] who have questions please contact the health cardiac care nurse that requested your imaging first. [...] and inotrope. She is planned for a vfdmq-xx-zwqrw TAVR this morning, which should hopefully improve [...] of Cardiovascular Medicine [facility] Retail Product Demo Specialistmotorcycle subassembler [facility] at [facility] [...] ejection fraction Mild coronary artery disease by [facility] 11/09/2022 Heart failure with reduced [...] 05/11/2023 4:11 PM EDT Reported off to ICE CREAM SHOP ASSOCIATE and pt transferred over in the bed for higher level of care. * Antelmo Sharma MD - 05/11/2023 9:45 AM EDT Images from the original note were [place] [phone] STRUCTURAL HEART DISEASE CONSULTATION NOTE PRIMARY CARE [...] who had been referred for possible TAVR semkx-ob-uhsjn evaluation. Her primary symptoms are of dyspnea [...] [facility]. 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 She states [...] ejection fraction Mild coronary artery disease by [facility] 11/09/2022 Heart failure with reduced [...] Lactate, whole blood, send to lab ([facility]) Result Value Ref Range Lactate WB 3.1 (H) 0.5 - 2.2 mmol/L Heparin (unfractionated) Level Result Value Ref Range Heparin UFH Level 0.46 IU/mL Lactate, whole blood, send to lab ([facility]) Result Value Ref Range Lactate WB 1.8 [...] leads Confirmed by MD Harshil, Enrique Bell ([id number]) on 05/10/2023 8:11:46 AM Cardiac Cath 11/09/2022 [...] Brody Kaplan APRN Structural Heart Disease Pager [phone] Please see addendum by Dr. Sharma for [...] signed and dated. Antelmo Sharma MD Pager [phone] * Harini Lance MD - 05/11/2023 6:06 AM EDT Images from the original note were not included. Cardiology Progress Note Patient info: Name: Purnima Thacker : 1955 PCP: Magdalena Acosta MD PCP phone number: [phone] Date of Admission: 05/08/2023 ( Hospital Day [...] who have questions please contact the health cardiac care nurse that requested your imaging first. : [...] 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) Mild coronary artery disease by [facility] 11/09/2022 Hyperlipidemia, unspecified NICOLAS (obstructive [...] PCP: Magdalena Acosta MD PCP phone number: [phone] Date of Admission: 05/08/2023 ( Hospital Day [...] 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) Mild coronary artery disease by [facility] 11/09/2022 Hyperlipidemia, unspecified NICOLAS (obstructive [...] PCP: Magdalena Acosta MD PCP phone number: [phone] Date of Admission: 05/08/2023 ( Hospital Day [...] Gas) No results found for: PHART, PO2ART, NED7WGX, DDA4HJE Microbiology: Microbiology Results (Last 30 days) No [...] Diet: Daily Healthy Menu Choices/Cardiac diet ([facility]-Diet) Lines: Peripheral IV Line [...] 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) Mild coronary artery disease by [facility] 11/09/2022 Hyperlipidemia, unspecified NICOLAS (obstructive [...] fraction I35.0 Mild coronary artery disease by [facility] 11/09/2022 I25.10 Heart failure with reduced ejection fraction due to heart valve disease I50.20, I38 Cardiogenic shock R57.0 S/P TAVR (transcatheter aortic valve replacement) Z95.2 Past Medical History: Diagnosis Date Anemia Past Surgical History: Procedure Laterality Date PRG CATH PLLA LEFT HEART CATH & ARTS W/INJ & ANGIO IMG S&I N/A 11/09/2022 CORONARY ANGIOGRAPHY; W [facility],POSSIBLE PCI (WRVU 5.6) performed by [...] fraction I35.0 Mild coronary artery disease by [facility] 11/09/2022 I25.10 Heart failure with reduced ejection fraction due to heart valve disease I50.20, I38 Cardiogenic shock R57.0 S/P TAVR (transcatheter aortic valve replacement) Z95.2 Past Medical History: Diagnosis Date Anemia Past Surgical History: Procedure Laterality Date PRG CATH [facility] LEFT HEART CATH & ARTS W/INJ & ANGIO IMG S&I N/A 11/09/2022 CORONARY ANGIOGRAPHY; W [facility],POSSIBLE PCI (WRVU 5.6) performed by [...] days, which prompted her to present to [facility]. She also endorses some intermittent retrosternal chest pain with exertion.She endorses some dizziness with exertion, but has not gotten faint or passed out. At [facility] she was noted to be afebrile, blood pressure 105/64, HR 120s, satting 95% on 2L NC. Labs from [facility] are below, of note she had [...] 89/59, which prompted the transfer to us. 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 female w/ PMH of s/p bioprosthetic AVR in 2016 with recent concern for severe restenosis, HTN, HLD, mixed connective tissue disease, who presents in transfer from [facility] with worsening BONILLA and weight gain [...] four days, which promptedher to present to [facility]. She also endorses some intermittent retrosternal chest pain with exertion. She endorses some dizziness with exertion, but has not gotten faint or passed out. At [facility] she was noted to be afebrile, blood pressure 105/64, HR 120s, satting 95% on 2L NC. Labs from [facility] are below, of note she had [...] 89/59, which prompted the transfer to us. [facility] labs: CBC - Hgb 10.5 CMP - Cr 1.1 BNP 29881 HsTrop 1358 Lactate 1.6 D-dimer 1183 Vasoactive [...] tissue disease, who [facility]A and weight gain concerning [...] Diet: Daily Healthy Menu Choices/Cardiac diet ([facility]-Diet) DVT Prophylaxis: heparin gtt [...] to the planned procedure. Hand Hygiene: The liquefied petroleum gasfitter did perform hand hygiene prior to arterial [...] Successful arterial line placement. Crispin Timmons MD Customer Services Coordinator Associated attestation - Onelia Schwartz MD [...] (flow was non-pulsatile) and appearance of blood. [place]-Marily catheter was placed and locked at 55 [...] Miscellaneous Notes * Plan of Care - Kai Gallego RN - 05/22/2023 9:39 AM EDT [...] information for follow-up [facility] & H[facility], [place] [address] [place] [address] Cardiac Rehab, [address] [place] [address] Home Health & H[facility]ice, [place] [address] [place] [address] Transportation: family or friend will provide *Brother [...] Type: *No Product type* / Secondary Insurance: [employer] [place] Prescription Coverage: Yes This plan was formulated with input from patient, family (please identify family/friend involved ifapplicable) and team. All are in agreement with plan. Aliza Martino MSN-Ed, RN ACM stove tender Office of Care Management Pager #[phone] * Plan of Care - Favian Mckeon [...] Chaudhary RN - 05/21/2023 4:46 PM EDTSummary: [facility] referral OFFICE OF CARE MANAGEMENT [...] describing our affiliations within the [facility] and educate about their right to choose where referrals are sent. provide a list of Home Health Agencies / Durable Medical Equipment vendors which serve their preferred geographic area. They have requested referrals to: [facility] [address] [place] [address] Ortho Care Located @ [place], [place] Note routed to a Architecture Internship who will communicate referrals to facilities and provide any required information. Transportation: family or friend will provide *Brother Raymond on Tuesday 05/22 at 1000 Barriers to discharge: Does not have home 22/02 assist available until tomorrow Tuesday 05/22 Plan going forward: Discharge home into the 22/02 [facility] care [facility]/OT services on Tuesday 05/22 [...] All Staff: Staff Role Juanita Almaguer Director Sales And Marketing Laure Ricks PA Physician Release Engineer Magdalena Rodriguez physicist cryogenics Nurse Consuelo Espinoza physicist cryogenics Nurse Post-operative diagnosis/Indication: Right pleural effusion Name [...] Type: *No Product type* / Secondary Insurance: [facility] [place] Last Physical Therapy Recommendation: senior living facility, swing bed rehabilitation facility with to be determined Last Occupational Therapy Recommendation: with Plan for discharge is: Nursing Home Facility / Swing Outpatient Agency/Support Group Needs: None Agency Referrals: Based on discussions with the multi-disciplinary healthcare team, the patient would benefit from SNF / Swing level of care at discharge. I have met with the patient to: discuss discharge planning needs. provide the [facility], Office of Care Management letter from the Sandblasting Supervisor pertaining to rehab referrals. provide a letter describing our affiliations within the [facility] and educate about their right to choose where referrals are sent. provide the CMS Star Quality Rating handout. review the different levels of rehab including SNF, swing, and acute. provide a list of facilities within their preferred geographic area. request that they provide at least three choices for referral. They have requested referrals to: [facility] [address] [place] [address] [facility] ([facility]) [address] [place] [address] (Accepts pts only after exhausting all other local SNF options) [facility] (Swing) ([facility]) [address] [place] [address] PHONE: [phone] FAX: [phone] [facility] (Swing) [facility]) [address] [place] [address] PHONE: [phone] FAX: [phone] Note routed to a Architecture Internship who will communicate referrals to facilities and [...] RN - 05/17/2023 10:25 AM EDT [facility] CARDIAC REHABILITATION Purnima Thacker was seen today regarding participation in the outpatient Phase 2 Cardiac Rehabilitation at [facility]. The patient agrees to a referral [...] from the original note were not included. [facility] NEPHROLOGY/HYPERTENSION CONSULT NOTE PATIENT: Purnima Thacker : [...] in her course. She ultimately underwent a eoxiz-fm-yjoax procedure on and tolerated it well (see operative details). [facility] on some pressors [...] 1423 05/12/23 1105 PHART 7.39 7.37 7.34* VXF8VAG 33* 36 42 PO2ART 101 102 73* OQO7ABI 19.5* 20.4 22.1 LACTATEVEN 1.5 1.8 2.8* CCG3BJK 40 40 40 PFRATIOART2 252 255 182 VBG (Venous Blood Gas) Recent Labs 05/12/23 1557 05/12/23 1423 05/12/23 1105 LACTATEVEN 1.5 1.8 2.8* Mixed Venous Sat Recent Labs 05/12/23 1425 05/12/23 0508 05/12/23 0321 Y1BLCQ0 59.9 30.7 32.7 LFT's: Recent Labs 05/14/23 0110 05/13/23 0115 05/12/23 0600 BILITOT 0.4 0.5 0.9 BILIDIR -- 0.3 -- ALBUMIN 3.6 3.0* 3.5 ALKPHOS 86 85 100 ALT 437* 903* 1,174* AST 319* 792* 1,435* No results found for: UPROTCREAT No results found for: TPROTEINPEP, ALBELECT No results found for: MICROALBUR, HRXY35LXN No results found for: HA1C Lab Results Component Value Date CALCIUM 8.5 05/14/2023 PHOS 4.7 (H) 05/08/2023 No results found for: 25OHVITD MICROBIOLOGY: ProcedureComponentValueUnitsDate/TimeUrine culture [[id number]]Collected: 05/11/231921Lab Status: Final resultSpecimen: Clean Catch UrineUpdated: [...] consulted for assessment if this patient needs RESEARCH WORKER KITCHEN. Atthis time, we can likely hold off on RESEARCH WORKER KITCHEN. Her volume status appears sufficient and her metabolic kanwal angements with mild acidosis is not too profound. Patient does not have significant uremic symptoms. We can hold off for today, but the patient is a high risk candidate for needing RESEARCH WORKER KITCHEN in future daysespecially if her Cr curve trends the direction it is for the next several days. S/p Jksvq-si-Pdmlu TF TAVR: Management per cardiology. On milrinone gtt. PLAN: - Please obtain following diagnostics: renal US, urinalysis, urine prot/Cr ratio, urine albumin/Cr ratio, CK, uric acid, serum osmol, daily VBGs - No acute indications for RESEARCH WORKER KITCHEN/dialysis. We will keep close eye on Cr trend, volume status, and metabolics to ensure patient still does not need RESEARCH WORKER KITCHEN as she ensues intrinsic renal recovery - [...] M.H.Katherine., M.A. PGY-V Nephrology-Hypertension Fellow Page # [phone] 2nd floor, Yeast Distiller [address] [place] [address] * Care Management - Mario Alberto Olmos [...] CENTER at 0945. Was intubated in the terrazzo laborer due to agitation. Maintained bedrest for [...] Operative Note Patient Name: Purnima Thacker : [id number] MR#: [id number] Case Date: 05/12/2023 Surgeon: Surgeon(s) and Role: [...] procedure Note: Patient Name: Purnima Thacker : [id number] MR#: [id number] Case Date: 05/12/2023 Operators Surgeon: Surgeon(s) and [...] main with 4.0 x 30 mm Resolute [facility] Drug Eluting Stent Perclose x1 + Angio-seal 8 Fr x1, RFA Manual pressure, LFA Manual pressure, LFV Endotracheal intubation (performed by cardiac anesthesia) Preliminary findings: Successful right transfemoral TAVR Lfgho-wl-Gvgzj with a 23 mm Lai 3 THV. [...] MD, M.Sc. Structural Heart Disease Fellow Pager :[phone] Antelmo Sharma MD Pager [phone] * Op Note - Alirio Hudson MD - 05/12/2023 7:37 AM EDT Preop Diagnosis: Severe aortic stenosis, symptomatic. Postop Diagnosis: Same. Procedure: Transfemoral TAVR procedure with 23mm valve. Surgeon: Alirio Hudson M.D. Circuit Breaker Assembler: Danny CULP Procedure: The patient was taken to the terrazzo laborer. The patient had monitored anesthesia care. 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 Safety measures in place, call monsavle within reach Problem: Adult Inpatient Plan of [...] original note were not [place] [address] STRUCTURAL HEART DISEASE CONSULTATION NOTE PRIMARY CARE [...] who had been referred for possible TAVR mexwq-db-fgwoi evaluation. Her primary symptoms are of dyspnea [...] [facility]. 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 PROBLEM LIST: Patient Active Problem List Diagnosis Symptomatic severe aortic stenosis with low ejection fraction Mild coronary artery disease by [facility] 11/09/2022 Heart failure with reduced [...] Lactate, whole blood, send to lab ([facility]) Result Value Ref Range Lactate WB 1.8 [...] leads Confirmed by MD Harshil, Enrique Bell ([id number]) on 05/10/2023 8:11:46 AM Assessment and Plan: [...] alert Dr. Hudson of her inpatient status, randolph primary cardiac surgeon. Based on recent clinic [...] Antelmo Sharma MD Structural Heart Disease Pager [phone] * Plan of Care - Sarahi Nice [...] VTE (Venous Thromboembolism) Risk Flowsheets (Taken 05/09/2023 7716) VTE Prevention/Management: anticoagulant therapy Intervention: Prevent Infection [...] utilized Taken 05/08/20231999 by Alivia Kauffman, manager vehicle/Support System Care: self-care encouraged support provided Problem: [...] Transfer from another hospital Location: admitted from [facility] Reason for Hospitalization: Critical aortic stenosis, [...] receiving care in [place] must abide by [place] law. The hierarchy [...] none Home Address confirmed as: [address] [facility] [address] Social & Family Supports: All names listed [...] Type: *No Product type* / Secondary Insurance: [facility] [place] ONLY if patient has Medicare A&B - Does this patient have secondary insurance?: Yes ; Prescription Coverage: Yes Preferred Pharmacy: updated to [facility] Status: Patient is a : No Primary Care Provider confirmed: Magdalena Acosta MD [phone] Patient/Caregiver Goals of Treatment: Potential Needs for [...] transition of care planning. Alie Bradshaw RN, Pager-[phone] * Plan of Care - Emily Lucero RN - 05/08/2023 2:54 PM EDT OUTCOME EVALUATION NOTE: OUTCOME SUMMARY: Pt arrived from [facility]. A&O, no c/o pain or SOB. [...] Office Visit Hematology [place] [address] Markel Borjas MD [facility] [place] [address] 11/02/2024 12:00 PM EDT Appointment [place] [address] 11/02/2024 1:00 PM EDT Office [place] [address] Magdalena Peralta MD [facility] [place] [address] 03/01/2025 4:15 PM EDT Office Visit Dermatology at [place] [address] [place] [address] Marek Bonilla MD [address], [place] [address] Scheduled Referrals Name Type Priority Associated Diagnoses [...] Heart Cath W/Inj L Ventriculography, Img S&I ([id number]) 05/12/2023 7:37 AM EDT Aortic valve stenosis, [...] DOPP (07/08/2023 12:15 PM EST) EF 20 [facility]ART[facility] SYSTEM Anatomical Region Laterality Modality Cardiac Other 07/08/2023 10:3 1 AM EST Narrative 07/08/2023 12:26 PM EST [address] [place] [address] ? Echocardiogram Report Name: PURNIMA THACKER ?Study Date: 07/08/2023 10:31 AMBP: 118/60 mmHg ? Patient Location: 4A : 1955 ? Height: 155 cm ? Account: [id number] Age: 67 yrs ? Weight: 74 kg [...] no significant change (post-procedure). Procedure Limited - 72292. Doppler - 55105. Color Doppler - 60119. Satisfactory quality. This study is limited because [...] Note Lee Kincaid MD - 07/08/2023 [address] [place] [address] Echocardiogram Report Name: PURNIMA THACKER Study Date: 0:31 AMBP: 118/60 mmHg Patient Location: : 1955 Height: 155 cm Account: [id number] Age: 67 yrs Weight: 74 kg Gender: [...] is nosignificant change (post-procedure). Procedure Limited - 07202. Doppler - 40384. Color Doppler - 57996. Satisfactoryquality. This study is limited because of [...] EST) Glucose 93 65 - 199 mg/dL [facility] Comment:Diabetes: >=200 mg/d L plus symptoms Blood Urea Nitrogen 19(H) 8 - 18 mg/dL [facility] Creatinine 0.81 0.70 - 1.20 mg/dL [facility] Sodium 142 135 - 145 mmol/L [facility] Potassium 3.8 3.5 - 5.0 mmol/L [facility] Comment: Please note: ??Patients with WBC >100,000 may have falsely elevated Potassium levels. ??For accurate Potassium quantification in these patients send serum separator tube (gold top) for subsequent determinations. ??Contact the Clinical Chemistry Laboratory if there are any questions. Chloride 104 98 - 107 mmol/L [facility] Carbon Dioxide 26 22 - 31 mmol/L [facility] Anion Gap 12 5 - 15 mmol/L [facility] Calcium 10.2 8.5 - 10.5 mg/dL [facility] Protein, Total 7.4 6.1 - 8.0 g/dL [facility] Albumin 4.1 3.2 - 5.2 g/dL [facility] Aspartate Aminotransferase 24 0 - 30 unit/L [facility] Alanine Aminotransferase 12 0 - 30 unit/L [facility] Alkaline Phosphatase 93 35 - 105 unit/L [facility] Bilirubin, Total 0.3 0.2 - 1.3 mg/dL [facility] Est Glomerular Filtration Rate 80 >=60 mL/min/1. 73 m?? [facility] [...] Lab Alirio Hudson MD CHEMISTRY ORDERABLE S [facility] [place] [address] * (ABNORMAL) Basic Metabolic Panel (non-fasting) (05/22/2023 3:57 AM EDT) Glucose 88 65 - 199 mg/dL [facility] Comment:Diabetes: >=200 mg/d L plus symptoms Blood Urea Nitrogen 21(H) 8 - 18 mg/dL [facility] Creatinine 0.69(L) 0.70 - 1.20 mg/dL [facility] Sodium 136 135 - 145 mmol/L [facility] Potassium 3.6 3.5 - 5.0 mmol/L [facility] Comment: Please note: ??Patients with WBC >100,000 may have falsely elevated Potassium levels. ??For accurate Potassium quantification in these patients send serum separator tube (gold top) for subsequent determinations. ??Contact the Clinical Chemistry Laboratory if there are any questions. Chloride 102 98 - 107 mmol/L [facility] Carbon Dioxide 23 22 - 31 mmol/L [facility] Anion Gap 11 5 - 15 mmol/L [facility] Calcium 8.6 8.5 - 10.5 mg/dL [facility] Est Glomerular Filtration Rate 95 >=60 mL/min/1. 73 m?? [facility] [...] Agency Comment Spec In Lab Mara Serrano TRAFFIC LIEUTENANT CHEMISTRY ORDERABL ES [facility] [place] [address] * (ABNORMAL) Basic Metabolic Panel (non-fasting) (05/21/2023 5:06 AM EDT) Glucose 87 65 - 199 mg/dL [facility] Comment:Diabetes: >=200 mg/d L plus symptoms Blood Urea Nitrogen 25(H) 8 - 18 mg/dL [facility] Creatinine 0.84 0.70 - 1.20 mg/dL [facility] Sodium 136 135 - 145 mmol/L [facility] Potassium 3.6 3.5 - 5.0 mmol/L [facility] Comment: Please note: ??Patients with WBC >100,000 may have falsely elevated Potassium levels. ??For accurate Potassium quantification in these patients send serum separator tube (gold top) for subsequent determinations. ??Contact the Clinical Chemistry Laboratory if there are any questions. Chloride 102 98 - 107 mmol/L [facility] Carbon Dioxide 26 22 - 31 mmol/L [facility] Anion Gap 8 5 - 15 mmol/L [facility] Calcium 8.9 8.5 - 10.5 mg/dL [facility] Est Glomerular Filtration Rate 76 >=60 mL/min/1. 73 m?? [facility] [...] Resulting Agency Comment Spec In Lab [facility] TRAFFIC LIEUTENANT CHEMISTRY ORDERABL ES Performing Organization Address City/[facility]/ZIP Co de Phone Number [facility] [place] [address] * Lavender Tube HOLD (05/20/2023 2:52 AM EDT) Lavender Hold Sample in lab. [facility] Blood Venous Draw / Unknown 05/20/2023 2:52 AM EDT 05/20/2023 3:04 AM EDT [facility] TRAFFIC LIEUTENANT HEMATOLOGY ORDERAB LES Performing Organization Address City/[facility]/[place] [address] * (ABNORMAL) Basic Metabolic Panel (non-fasting) (05/20/2023 2:52 AM EDT) Glucose 152 65 - 199 mg/dL [facility] Comment:Diabetes: >=200 mg/d L plus symptoms Blood Urea Nitrogen 33(H) 8 - 18 mg/dL [facility] Creatinine 0.82 0.70 - 1.20 mg/dL [facility] Sodium 137 135 - 145 mmol/L [facility] Potassium 3.7 3.5 - 5.0 mmol/L [facility] Comment: Please note: ??Patients with WBC >100,000 may have falsely elevated Potassium levels. ??For accurate Potassium quantification in these patients send serum separator tube (gold top) for subsequent determinations. ??Contact the Clinical Chemistry Laboratory if there are any questions. Chloride 99 98 - 107 mmol/L [facility] Carbon Dioxide 22 22 - 31 mmol/L [facility] Anion Gap 16(H) 5 - 15 mmol/L [facility] Calcium 9.0 8.5 - 10.5 mg/dL [facility] Est Glomerular Filtration Rate 78 >=60 mL/min/1. 73 m?? [facility] [...] Lab Mara Serrano ANURAG CHEMISTRY ORDERABL ES [facility] [place] [address] * (ABNORMAL) Potassium (05/20/2023 2:52 AM EDT) Potassium 3.4(L) 3.5 - 5.0 mmol/L [facility] Comment: Please note: ??Patients with WBC >100,000 may have falsely elevated Potassium levels. ??For accurate Potassium quantification in these patients send serum separator tube (gold top) for subsequent determinations. ??Contact the Clinical Chemistry Laboratory if there are any questions. Blood 05/20/2023 2:52 AM EDT 05/20/2023 3:03 AM EDT Narrative Resulting Agency Comment Spec In Lab Mara Serrano TRAFFIC LIEUTENANT CHEMISTRY ORDERABL ES [facility] [place] [address] * XR Chest PA & Lateral (Generic) [...] who have questions please contact the health cardiac care nurse that requested your imaging first. [...] patients who have questions please contactthe health cardiac care nurse that requested your imaging first. Alirio Hudson MD IMG DX ORDERABLES * (ABNORMAL) Basic Metabolic Panel (non-fasting) (05/19/2023 5:49 AM EDT) Glucose 93 65 - 199 mg/dL [facility] Comment:Diabetes: >=200 mg/d L plus symptoms Blood Urea Nitrogen 45(H) 8 - 18 mg/dL [facility] Creatinine 1.02 0.70 - 1.20 mg/dL [facility] Sodium 138 135 - 145 mmol/L [facility] Potassium 3.9 3.5 - 5.0 mmol/L [facility] Comment: Please note: ??Patients with WBC >100,000 may have falsely elevated Potassium levels. ??For accurate Potassium quantification in these patients send serum separator tube (gold top) for subsequent determinations. ??Contact the Clinical Chemistry Laboratory if there are any questions. Chloride 102 98 - 107 mmol/L [facility] Carbon Dioxide 26 22 - 31 mmol/L [facility] Anion Gap 10 5 - 15 mmol/L [facility] Calcium 9.7 8.5 - 10.5 mg/dL [facility] Est Glomerular Filtration Rate 60 >=60 mL/min/1. 73 m?? [facility] [...] OSBORN CHEMISTRY ORDERABL ES Performing Organization Address City/State/[facility] Co de Phone Number [facility] [place] [address] * IR Chest Tube Placement Right (05/18/2023 [...] Kristopher Salgado MD 05/18/2023 Alirio Hudson MD [facility] IR ORDERABLES * (ABNORMAL) Basic Metabolic Panel (non-fasting) (05/18/2023 2:54 AM EDT) Glucose 95 65 - 199 mg/dL [facility] Comment:Diabetes: >=200 mg/d L plus symptoms Blood Urea Nitrogen 71(H) 8 - 18 mg/dL [facility] Comment:result rechecked-[facility] Creatinine 1.64(H) 0.70 - 1.20 mg/dL [facility] Comment:result rechecked-[facility] Sodium 137 135 - 145 mmol/L [facility] Potassium 3.7 3.5 - 5.0 mmol/L [facility] Comment: Please note: ??Patients with WBC >100,000 may have falsely elevated Potassium levels. ??For accurate Potassium quantification in these patients send serum separator tube (gold top) for subsequent determinations. ??Contact the Clinical Chemistry Laboratory if there are any questions. Chloride 100 98 - 107 mmol/L [facility] Carbon Dioxide 24 22 - 31 mmol/L [facility] Anion Gap 13 5 - 15 mmol/L [facility] Calcium 9.7 8.5 - 10.5 mg/dL [facility] Est Glomerular Filtration Rate 34(L) >=60 mL/min/1. 73 m?? [facility] [...] Resulting Agency Comment Spec [facility] [place] [address] * XR Chest PA & Lateral (Generic) [...] who have questions please contact the health cardiac care nurse that requested your imaging first. [...] patients who have questions please contactthe health cardiac care nurse that requested your imaging first. Alirio Hudson MD IMG DX ORDERABLES * (ABNORMAL) Comprehensive metabolic panel (non-fasting) (05/17/2023 4:35 AM EDT) Glucose 89 65 - 199 mg/dL [facility] Comment:Diabetes: >=200 mg/d L plus symptoms Blood Urea Nitrogen 97(H) 8 - 18 mg/dL [facility] Creatinine 2.97(H) 0.70 - 1.20 mg/dL [facility] Comment:result rechecked-JSJ Sodium 135 135 - 145 mmol/L [facility] Potassium 4.1 3.5 - 5.0 mmol/L [facility] Comment: Please note: ??Patients with WBC >100,000 may have falsely elevated Potassium levels. ??For accurate Potassium quantification in these patients send serum separator tube (gold top) for subsequent determinations. ??Contact the Clinical Chemistry Laboratory if there are any questions. Chloride 97(L) 98 - 107 mmol/L [facility] Carbon Dioxide 22 22 - 31 mmol/L [facility] Anion Gap 16(H) 5 - 15 mmol/L [facility] Calcium 9.6 8.5 - 10.5 mg/dL [facility] Protein, Total 6.5 6.1 - 8.0 g/dL [facility] Albumin 3.7 3.2 - 5.2 g/dL [facility] Aspartate Aminotransferase 58(H) 0 - 30 unit/L [facility] Alanine Aminotransferase 66(H) 0 - 30 unit/L [facility] Alkaline Phosphatase 86 35 - 105 unit/L [facility] Bilirubin, Total 0.6 0.2 - 1.3 mg/dL [facility] Est Glomerular Filtration Rate 17(L) >=60 mL/min/1. 73 m?? [facility] [...] ORDERABLE S Performing Organization Address [facility] Co de Phone Number [facility] [place] [address] * Potassium (05/16/2023 11:15 PM EDT) Potassium 3.7 3.5 - 5.0 mmol/L [facility] [...] MD CHEMISTRY ORDERABLE S Performing Organization Address City/[facility] Co de Phone Number [facility] [place] [address] * Magnesium (05/16/2023 5:22 PM EDT) Magnesium 0.96 0.69 - 1.07 mmol/L [facility] Blood 05/16/2023 5:22 PM EDT 05/16/2023 5:27 PM EDT Narrative Resulting Agency Comment Spec In Lab Alirio Hudson MD CHEMISTRY ORDERABLE S Performing Organization Address City/[facility]/ZIP Co de Phone Number [facility] [place] [address] * (ABNORMAL) Basic Metabolic Panel (non-fasting) (05/16/2023 5:22 PM EDT) Glucose 106 65 - 199 mg/dL [facility] Comment:Diabetes: >=200 mg/d L plus symptoms Blood Urea Nitrogen 103(H) 8 - 18 mg/dL [facility] Creatinine 3.91(H) 0.70 - 1.20 mg/dL [facility] Comment:result rechecked-imm Sodium 132(L) 135 - 145 mmol/L [facility] Potassium 3.6 3.5 - 5.0 mmol/L [facility] Comment: Please note: ??Patients with WBC >100,000 may have falsely elevated Potassium levels. ??For accurate Potassium quantification in these patients send serum separator tube (gold top) for subsequent determinations. ??Contact the Clinical Chemistry Laboratory if there are any questions. Chloride 92(L) 98 - 107 mmol/L [facility] Carbon Dioxide 22 22 - 31 mmol/L [facility] Anion Gap 18(H) 5 - 15 mmol/L [facility] Calcium 9.7 8.5 - 10.5 mg/dL [facility] Est Glomerular Filtration Rate 12(L) >=60 mL/min/1. 73 m?? [facility] [...] Lab Alirio Hudson MD CHEMISTRY ORDERABLE S [facility] [place] [address] * (ABNORMAL) Potassium (05/16/2023 11:43 AM EDT) Potassium 3.3(L) 3.5 - 5.0 mmol/L [facility] [...] MD CHEMISTRY ORDERABLE S Performing Organization Address City/[facility]/ZIP Co de Phone Number [facility] [place] [address] * (ABNORMAL) Ferritin (05/16/2023 4:41 AM EDT) Ferritin 1,813(H) 30 - 400 ng/mL [facility] Comment: Pediatric reference ranges not verified at [facility], interpret with caution. Reference ranges for females greater than 50 years of age approach values for men, i.e., 30-400 ng/mL. Blood 05/16/2023 4:41 AM EDT 05/16/2023 4:54 AM EDT Narrative Resulting Agency Comment Spec In Lab Kristopher Ayoub MD CHEMISTRY ORDERABLES [facility] [place] [address] * (ABNORMAL) PTH (05/16/2023 4:41 AM EDT) Parathyroid Hormone 120(H) 15 - 65 pg/mL [facility] Blood 05/16/2023 4:41 AM EDT 05/16/2023 4:54 AM EDT Narrative Resulting Agency Comment Spec In Lab Kristopher Ayoub MD CHEMISTRY ORDERABLES [facility] [place] [address] * Vitamin D, 25-Hydroxy (05/16/2023 4:41 AM EDT) Vitamin D Total 25 OH 33 21 - 100 ng/mL [facility] Vit D Interp Sufficient [facility] Blood 05/16/2023 4:41 AM EDT 05/16/2023 4:54 AM EDT Narrative Resulting Agency Comment Spec In Lab Kristopher Ayoub MD CHEMISTRY ORDERABLES Performing Organization Address City/[facility]/ZIP Co de Phone Number [facility] [place] [address] * (ABNORMAL) Blood Gas Venous ([facility]) (05/16/2023 4:22 AM EDT) pH, Venous 7.41 7.32 - 7.42 [facility] PCO2, Venous 32(L) 41 - 51 mmHg [facility] PO2, Venous 73(H) 25 - 40 mmHg [facility] Bicarbonate, Venous 19.6 mmol/L [facility] Base Excess, Venous -5.1 mmol/L [facility] Hgb Blood Gas 9.7(L) 11.7 - 15.5 g/dL [facility] Oxyhemoglobin, Venous 92.8 % [facility] Carboxyhemoglob in, Venous 0.1 % [facility] Comment: Nonsmokers: 0.5-1.5% COHB Smokers: Variable, but usually less than 10% Toxic: 20-30% COHB Lethal: Greater than 60% COHB Methemoglobin, Venous 0.3 <=1.5 % [facility] Na Whole Blood 130(L) 135 - 145 mmol/L [facility] K Whole Blood 3.7 3.5 - 5.0 mmol/L [facility] Comment: Please note: Patients with WBC >100,000 may have falsely elevated Potassium levels. Contact the Clinical Chemistry Laboratory if there are any questions. ICa Whole Blood 1.15 1.15 - 1.33 mmol/L [facility] Comment: Note: ??Total bilirubin higher than 20 mg/dL may lead to falsely low ionized calcium. CL Whole Blood 95(L) 98 - 107 mmol/L [facility] Gluc Whole Bld 82 65 - 199 mg/dL [facility] Comment:Diabetes: >=200 mg/d L plus symptoms Lactate WB 1.1 0.5 - 2.2 mmol/L [facility] Blood Gas Source Venous [facility] Blood Venous Draw / Unknown 05/16/2023 4:22 AM EDT 05/16/2023 4:31 AM EDT Narrative Resulting Agency Comment Spec In Lab Bonita TOBAR CHEMISTRY ORDERABLES [facility] [place] [address] * (ABNORMAL) Differential, Automated (05/16/2023 4:20 AM EDT) Neutrophil % 84.1 % [facility] Neutrophil Absolute 6.22(H) 1.70 - 6.10 x10(3)/mc L [facility] Lymph % 5.8 % [facility] Lymphocytes Abs 0.4(L) 0.9 - 3.2 x10(3)/mc L [facility] Monocyte % 8.8 % [facility] Monocyte Abs 0.6 0.3 - 0.9 x10(3)/mc L [facility] Eos % 0.4 % [facility] Eosinophils Abs 0.0 0.0 - 0.4 x10(3)/mc L [facility] Basophil % 0.0 % [facility] Baso Absolute 0.0 0.0 - 0.1 x10(3)/mc L [facility] Immature Gran % 0.90 % [facility] Comment: Immature granulocytes(IG's)percentage and absolute count will include metamyelocytes, myelocytes, and promyelocytes. Blood smears from CBCs yielding IG's will be scanned manually for concordance. If this scan disagrees with the automated IG or if promyelocytes are noted, a manual differential will be performed. Immature Gran Absolute 0.07(H) 0.00 - 0.04 x10(3)/mc L [facility] Blood 05/16/2023 4:20 AM EDT 05/16/2023 4:29 AM EDT Narrative Resulting Agency Comment Spec In Lab James Agustin MD HEMATOLOGY ORDER JODIE [facility] [place] [address] * (ABNORMAL) Hemogram (05/16/2023 4:20 AM EDT) White Blood Cell 7.4 4.0 - 9.5 x10(3)/mc L [facility] Red Blood Cell 2.40(L) 4.00 - 5.21 x10(6)/mc L [facility] Hemoglobin 7.8(L) 11.7 - 15.5 g/dL [facility] Hematocrit 22.5(L) 35.7 - 45.8 % [facility] Mean Cell Volume 93.8 82.6 - 94.4 fL [facility] Mean Cell Hemoglobin 32.5(H) 27.1 - 32.0 pg [facility] Mean Cell Hemoglobin Concentration 34.7 31.7 - 35.0 g/dL [facility] Platelet 120(L) 145 - 357 x10(3)/mc L [facility] RDW Standard Deviation 42.9 37.0 - 46.0 fL [facility] RDW coefficient of variation 12.9 11.5 - 14.1 % [facility] Mean Platelet Volume 11.3 7.6 - 12.9 fL [facility] NRBC% auto 0.7 % [facility] NRBC Absolute 0.050(H) 0.000 - 0.000 x10(3)/mc L [facility] Blood 05/16/2023 4:20 AM EDT 05/16/2023 4:29 AM EDT Narrative Resulting Agency Comment Spec In Lab James Agustin MD HEMATOLOGY ORDER JODIE Performing Organization Address City/[facility]/ZIP Co de Phone Number [facility] [place] [address] * (ABNORMAL) Basic Metabolic Panel (non-fasting) (05/16/2023 4:20 AM EDT) Glucose 89 65 - 199 mg/dL [facility] Comment:Diabetes: >=200 mg/d L plus symptoms Blood Urea Nitrogen 108(H) 8 - 18 mg/dL [facility] Creatinine 4.74(H) 0.70 - 1.20 mg/dL [facility] Comment:result rechecked-[facility] Sodium 132(L) 135 - 145 mmol/L [facility] Potassium 3.9 3.5 - 5.0 mmol/L [facility] Comment: Please note: ??Patients with WBC >100,000 may have falsely elevated Potassium levels. ??For accurate Potassium quantification in these patients send serum separator tube (gold top) for subsequent determinations. ??Contact the Clinical Chemistry Laboratory if there are any questions. Chloride 95(L) 98 - 107 mmol/L [facility] Carbon Dioxide 18(L) 22 - 31 mmol/L [facility] Anion Gap 19(H) 5 - 15 mmol/L [facility] Calcium 9.2 8.5 - 10.5 mg/dL [facility] Est Glomerular Filtration Rate 10(L) >=60 mL/min/1. 73 m?? [facility] [...] Lab Alirio Hudson MD CHEMISTRY ORDERABLE S [facility] [place] [address] * (ABNORMAL) Iron and TIBC (05/16/2023 4:20 AM EDT) Iron 31 30 - 150 mcg/dL [facility] TIBC 259 250 - 450 mcg/dL [facility] Iron Saturation 12(L) 20 - 50 % [facility] Blood 05/16/2023 4:20 AM EDT 05/16/2023 4:29 AM EDT Narrative Resulting Agency Comment Spec In Lab Kristopher Ayoub MD CHEMISTRY ORDERABLES [facility] [place] [address] * (ABNORMAL) Basic Metabolic Panel (non-fasting) (05/15/2023 12:50 AM EDT) Glucose 101 65 - 199 mg/dL [facility] Comment:Diabetes: >=200 mg/d L plus symptoms Blood Urea Nitrogen 109(H) 8 - 18 mg/dL [facility] Creatinine 5.62(H) 0.70 - 1.20 mg/dL [facility] Comment:result rechecked-[place] Sodium 131(L) 135 - 145 mmol/L [facility] Comment:result rechecked-[place] Potassium 3.7 3.5 - 5.0 mmol/L [facility] Comment: result rechecked-[place] Please note: ??Patients with WBC >100,000 may have falsely elevated Potassium levels. ??For accurate Potassium quantification in these patients send serum separator tube (gold top) for subsequent determinations. ??Contact the Clinical Chemistry Laboratory if there are any questions. Chloride 92(L) 98 - 107 mmol/L [facility] Comment:result rechecked-[place] Carbon Dioxide 18(L) 22 - 31 mmol/L [facility] Comment:result rechecked-[place] Anion Gap 21(H) 5 - 15 mmol/L [facility] Calcium 8.9 8.5 - 10.5 mg/dL [facility] Est Glomerular Filtration Rate 8(L) >=60 mL/min/1. 73 m?? [facility] [...] Lab Alirio Hudson MD CHEMISTRY ORDERABLE S [facility] [place] [address] * (ABNORMAL) Hemogram (05/15/2023 12:50 AM EDT) White Blood Cell 9.1 4.0 - 9.5 x10(3)/mc L [facility] Red Blood Cell 2.19(L) 4.00 - 5.21 x10(6)/mc L [facility] Hemoglobin 7.2(L) 11.7 - 15.5 g/dL [facility] Hematocrit 20.6(L) 35.7 - 45.8 % [facility] Mean Cell Volume 94.1 82.6 - 94.4 fL [facility] Mean Cell Hemoglobin 32.9(H) 27.1 - 32.0 pg [facility] Mean Cell Hemoglobin Concentration 35.0 31.7 - 35.0 g/dL [facility] Platelet 109(L) 145 - 357 x10(3)/mc L [facility] RDW Standard Deviation 43.6 37.0 - 46.0 fL [facility] RDW coefficient of variation 12.9 11.5 - 14.1 % [facility] Mean Platelet Volume 10.4 7.6 - 12.9 fL [facility] NRBC% auto 2.1 % [facility] NRBC Absolute 0.190(H) 0.000 - 0.000 x10(3)/mc L [facility] Blood 05/15/2023 12:5 0 AM EDT 05/15/2023 12:52 AM EDT Narrative Resulting Agency Comment Spec In Lab Alirio Hudson MD HEMATOLOGY ORDERABL ES [facility] [address] [place] [address] * (ABNORMAL) BLOOD GAS 2 VENOUS (05/15/2023 12:49 AM EDT) pH, Venous 7.33 7.32 - 7.42 [facility] PCO2, Venous 37(L) 41 - 51 mmHg [facility] PO2, Venous 34 25 - 40 mmHg [facility] Bicarbonate, Venous 19.1 mmol/L [facility] Base Excess, Venous -6.8 mmol/L [facility] Hgb Blood Gas 10.8(L) 11.7 - 15.5 g/dL [facility] Oxyhemoglobin, Venous 58.1 % [facility] Carboxyhemoglob in, Venous 0.3 % [facility] Comment: Nonsmokers: 0.5-1.5% COHB Smokers: Variable, but usually less than 10% Toxic: 20-30% COHB Lethal: Greater than 60% COHB Methemoglobin, Venous 0.6 <=1.5 % [facility] Na Whole Blood 136 135 - 145 mmol/L [facility] K Whole Blood 3.7 3.5 - 5.0 mmol/L [facility] Comment: Please note: Patients with WBC >100,000 may have falsely elevated Potassium levels. Contact the Clinical Chemistry Laboratory if there are any questions. ICa Whole Blood 1.12(L) 1.15 - 1.33 mmol/L [facility] Comment: Note: ??Total bilirubin [...] [facility] Blood Gas Source Venous [facility] Blood 05/15/2023 12:4 9 AM EDT 05/15/2023 12:49 AM EDT Alirio Hudson MD POINT OF CARE TEST ORDERABLES [facility] [place] [address] * US Retroperitoneal Complete (05/14/2023 3:53 PM [...] who have questions, please contact the health cardiac care nurse that requested your imaging first. ? Hayden Robledo, Staff Physician Electronically Signed Final Report ?? 05/14/2023 04:39 pm Narrative 05/14/2023 4:39 PM EDT Renal ? (Signed Final 05/14/2023 04:39 pm) PATIENT INFO: ID #: ? [id number] ?: ??[birth year] (67 yrs)(F) Name: ? PURNIMA THACKER ?Visit Date: 05/14/2023 03:44 pm PERFORMED BY: Attending: ?Meena CULP, Hayden Stafford Resident: ? Nell CULP, Anand August Performed By: ? Consuelo Tello RDMS Referred By: ?ALIRIO HUDSON Location: ? [place] SERVICE(S) PROVIDED: URETRO - Retroperitoneal Complete - [id number] ? [id number] INDICATIONS: [facility] COMPARISON: CT: Abdomen/Pelvis 05/11/23 RIGHT [...] 05/14/2023 04:39 pm) PATIENT INFO: ID #: [id number] : [birth year] (67 yrs)(F) Name: PURNIMA THACKER Visit Date: 05/14/2023 03:44 pm PERFORMED BY: Attending: Meena CULP, Hayden Stafford Resident: Anand Camejo MD Performed By: Consuelo Tello RDMS Referred By: ALIRIO HUDSON Location: [place] SERVICE(S) PROVIDED: URETRO - Retroperitoneal Complete - [id number] INDICATIONS: [facility] COMPARISON: CT: Abdomen/Pelvis 05/11/23 RIGHT [...] who have questions, please contact the health cardiac care nurse that requested your imaging first. Hayden Robledo, Staff Physician Electronically Signed Final Report 05/14/2023 04:39 pm Alirio Hudson MD IMG US GEN ORDERABL ES * CK (05/14/2023 3:17 PM EDT) Pathologist [facility] Creatine Kinase 123 0 - 160 unit/L [facility] Blood 05/14/2023 3:17 PM EDT 05/14/2023 3:31 PM EDT Narrative Resulting Agency Comment Spec In Lab Alirio Hudson MD CHEMISTRY ORDERABLE S [facility] [place] [address] * (ABNORMAL) Uric acid (05/14/2023 3:17 PM EDT) Pathologist [facility] Uric Acid 14.9(H) 2.5 - 6.5 mg/dL [facility] Blood 05/14/2023 3:17 PM EDT 05/14/2023 3:31 PM EDT Narrative Resulting Agency Comment Spec In Lab Alirio Hudson MD CHEMISTRY ORDERABLE S Performing Organization Address City/[facility] Co de Phone Number [facility] [place] [address] * (ABNORMAL) Osmolality (05/14/2023 3:17 PM EDT) Osmolality 311(H) 275 - 295 mOsm/kg [facility] Blood 05/14/2023 3:17 PM EDT 05/14/2023 3:31 PM EDT Narrative Resulting Agency Comment Spec In Lab Alirio Hudson MD CHEMISTRY ORDERABLE S Performing Organization Address [facility] de Phone Number [facility] [place] [address] * (ABNORMAL) Differential, Automated (05/14/2023 1:10 AM EDT) Neutrophil % 87.2 % [facility] Neutrophil Absolute 9.74(H) 1.70 - 6.10 x10(3)/mc L [facility] Lymph % 3.9 % [facility] Lymphocytes Abs 0.4(L) 0.9 - 3.2 x10(3)/mc L [facility] Monocyte % 7.9 % [facility] Monocyte Abs 0.9 0.3 - 0.9 x10(3)/mc L [facility] Eos % 0.0 % [facility] Eosinophils Abs 0.0 0.0 - 0.4 x10(3)/mc L [facility] Basophil % 0.1 % [facility] Baso Absolute 0.0 0.0 - 0.1 x10(3)/mc L [facility] Immature Gran % 0.90 % [facility] Comment: Immature granulocytes(IG's)percentage and absolute count will include metamyelocytes, myelocytes, and promyelocytes. Blood smears from CBCs yielding IG's will be scanned manually for concordance. If this scan disagrees with the automated IG or if promyelocytes are noted, a manual differential will be performed. Immature Gran Absolute 0.10(H) 0.00 - 0.04 x10(3)/mc L [facility] Blood 05/14/2023 1:10 AM EDT 05/14/2023 1:24 AM EDT Narrative Resulting Agency Comment Spec In Lab Bonita TOBAR HEMATOLOGY ORDERABLE S [facility] [place] [address] * (ABNORMAL) Hemogram (05/14/2023 1:10 AM EDT) White Blood Cell 11.2(H) 4.0 - 9.5 x10(3)/mc L [facility] Red Blood Cell 2.19(L) 4.00 - 5.21 x10(6)/mc L [facility] Hemoglobin 7.2(L) 11.7 - 15.5 g/dL [facility] Hematocrit 20.3(L) 35.7 - 45.8 % [facility] Mean Cell Volume 92.7 82.6 - 94.4 fL [facility] Mean Cell Hemoglobin 32.9(H) 27.1 - 32.0 pg [facility] Mean Cell Hemoglobin Concentration 35.5(H) 31.7 - 35.0 g/dL [facility] Platelet 112(L) 145 - 357 x10(3)/mc L [facility] RDW Standard Deviation 41.4 37.0 - 46.0 fL [facility] RDW coefficient of variation 12.5 11.5 - 14.1 % [facility] Mean Platelet Volume 10.4 7.6 - 12.9 fL [facility] NRBC% auto 1.5 % [facility] NRBC Absolute 0.170(H) 0.000 - 0.000 x10(3)/mc L [facility] Blood 05/14/2023 1:10 AM EDT 05/14/2023 1:24 AM EDT Narrative Resulting Agency Comment Spec In Lab [facility] ORDERABLE S [facility] [place] [address] * (ABNORMAL) Comprehensive metabolic panel (non-fasting) (05/14/2023 1:10 AM EDT) Glucose 120 65 - 199 mg/dL [facility] Comment:Diabetes: >=200 mg/d L plus symptoms Blood Urea Nitrogen 98(H) 8 - 18 mg/dL [facility] Creatinine 4.80(H) 0.70 - 1.20 mg/dL [facility] Comment:result rechecked-ssc Sodium 132(L) 135 - 145 mmol/L [facility] Potassium 4.1 3.5 - 5.0 mmol/L [facility] Comment: Please note: ??Patients with WBC >100,000 may have falsely elevated Potassium levels. ??For accurate Potassium quantification in these patients send serum separator tube (gold top) for subsequent determinations. ??Contact the Clinical Chemistry Laboratory if there are any questions. Chloride 94(L) 98 - 107 mmol/L [facility] Carbon Dioxide 18(L) 22 - 31 mmol/L [facility] Anion Gap 20(H) 5 - 15 mmol/L [facility] Calcium 8.5 8.5 - 10.5 mg/dL [facility] Protein, Total 5.8(L) 6.1 - 8.0 g/dL [facility] Albumin 3.6 3.2 - 5.2 g/dL [facility] Aspartate Aminotransferase 319(H) 0 - 30 unit/L [facility] Alanine Aminotransferase 437(H) 0 - 30 unit/L [facility] Alkaline Phosphatase 86 35 - 105 unit/L [facility] Bilirubin, Total 0.4 0.2 - 1.3 mg/dL [facility] Est Glomerular Filtration Rate 9(L) >=60 mL/min/1. 73 m?? [facility] ORDERABLE S Performing Organization Address [facility] de Phone Number [facility] [place] [place] [address] * APTT (05/13/2023 10:15 AM EDT) Partial Thromboplastin Time 27 25 - 37 sec [facility] Comment: The PTT is [...] ORDERABL ES Performing Organization Address [facility] Co de Phone Number [facility] [place] [address] * (ABNORMAL) Prothrombin Time (05/13/2023 10:15 AM EDT) Prothrombin Time 14.6(H) 9.4 - 12.5 sec [facility] International Normalization Ratio 1.3 [facility] Comment: An INR <2.0 indicates [...] MD HEMATOLOGY ORDERABL ES Performing Organization Address City/[facility]/ZIP Co de Phone Number [facility] [place] [address] * EKG 12 Lead (05/13/2023 9:22 AM EDT) Ventricular rate 92 BPM MUSE SYSTEM Atrial Rate 92 BPM MUSE SYSTEM P-R Interval 140 ms MUSE SYSTEM QRS Duration 104 ms MUSE SYSTEM Q-T Interval 384 ms MUSE SYSTEM QTC Calculated (Bezet) 474 ms MUSE SYSTEM Calculated P Latham 33 degrees MUSE SYSTEM Calculated R Latham 41 degrees MUSE SYSTEM Calculated T Latham -35 degrees MUSE SYSTEM INTERPRETATION Sinus rhythm with frequent Premature ventricular complexes Septal infarct , age undetermined ST & T wave abnormality, consider lateral ischemia Abnormal ECG When compared with ECG of 12-MAY-2023 10:10, Premature ventricular complexes are now Present I personally reviewed the tracing and edited the fellows interpretation Confirmed by fellow MD Anitha, [facility] ([id number]) on 05/13/2023 3:25:30 PM Confirmed by Maxx Best ([id number]) on 05/13/2023 8:30:56 PM MUSE SYSTEM 05/13/2023 9:22 AM EDT 05/13/2023 8:30 PM EDT Alirio Hudson MD ECG ORDERABLES Performing Organization Address City/[facility]/ZIP Co de Phone Number MUSE SYSTEM * (ABNORMAL) Differential, Automated (05/13/2023 1:15 AM EDT) Neutrophil % 88.1 % [facility] Neutrophil Absolute 7.62(H) 1.70 - 6.10 x10(3)/mc L [facility] Lymph % 3.1 % [facility] Lymphocytes Abs 0.3(L) 0.9 - 3.2 x10(3)/mc L [facility] Monocyte % 7.9 % [facility] ITAL [facility] Monocyte Abs 0.7 0.3 - 0.9 x10(3)/mc L [facility] Eos % 0.0 % [facility] Eosinophils Abs 0.0 0.0 - 0.4 x10(3)/mc L [facility] Basophil % 0.1 % [facility] Baso Absolute 0.0 0.0 - 0.1 x10(3)/ L [facility] Immature Gran % 0.80 % [facility] Comment: Immature granulocytes(IG's)percentage and absolute count will include metamyelocytes, myelocytes, and promyelocytes. Blood smears from CBCs yielding IG's will be scanned manually for concordance. If this scan disagrees with the automated IG or if promyelocytes are noted, a manual differential will be performed. Immature Gran Absolute 0.07(H) 0.00 - 0.04 x10(3)/ L [facility] Blood 05/13/2023 1:15 AM EDT 05/13/2023 1:29 AM EDT Narrative Resulting Agency Comment Spec In Lab Lorri TOBAR HEMATOLOGY ORDERABLE S Performing Organization Address City/State/[facility] Co de Phone Number [facility] [place] [address] * (ABNORMAL) Hemogram (05/13/2023 1:15 AM EDT) White Blood Cell 8.6 4.0 - 9.5 x10(3)/mc L [facility] Red Blood Cell 2.37(L) 4.00 - 5.21 x10(6)/ L [facility] Hemoglobin 7.8(L) 11.7 - 15.5 g/dL [facility] Hematocrit 22.2(L) 35.7 - 45.8 % [facility] Mean Cell Volume 93.7 82.6 - 94.4 fL [facility] Mean Cell Hemoglobin 32.9(H) 27.1 - 32.0 pg [facility] Mean Cell Hemoglobin Concentration 35.1(H) 31.7 - 35.0 g/dL [facility] Platelet 130(L) 145 - 357 x10(3)/mc L [facility] RDW Standard Deviation 41.7 37.0 - 46.0 fL [facility] RDW coefficient of variation 12.5 11.5 - 14.1 % [facility] Mean Platelet Volume 10.2 7.6 - 12.9 fL [facility] NRBC% auto 0.5 % [facility] ITAL [facility] NRBC Absolute 0.040(H) 0.000 - 0.000 x10(3)/mc L [facility] Blood 05/13/2023 1:15 AM EDT 05/13/2023 1:29 AM EDT Narrative Resulting Agency Comment Spec In Lab Lorri TOBAR HEMATOLOGY ORDERABLE S Performing Organization Address City/[facility] Co de Phone Number [facility] [place] [address] * (ABNORMAL) Hepatic Function Panel (05/13/2023 1:15 AM EDT) Protein, Total 5.5(L) 6.1 - 8.0 g/dL [facility] Albumin 3.0(L) 3.2 - 5.2 g/dL [facility] Aspartate Aminotransferase 792(H) 0 - 30 unit/L [facility] Alanine Aminotransferase 903(H) 0 - 30 unit/L [facility] Alkaline Phosphatase 85 35 - 105 unit/L [facility] Bilirubin, Total 0.5 0.2 - 1.3 mg/dL [facility] Bilirubin, Direct 0.3 0.0 - 0.3 mg/dL [facility] Blood 05/13/2023 1:15 AM EDT 05/13/2023 1:29 AM EDT Narrative Resulting Agency Comment Spec In Lab Alirio Hudson MD CHEMISTRY ORDERABLE S Performing Organization Address City/[facility]/ZIP Co de Phone Number [facility] [place] [address] * (ABNORMAL) Basic Metabolic Panel (non-fasting) (05/13/2023 1:15 AM EDT) Glucose 107 65 - 199 mg/dL [facility] Comment:Diabetes: >=200 mg/d L plus symptoms Blood Urea Nitrogen 82(H) 8 - 18 mg/dL [facility] Creatinine 3.15(H) 0.70 - 1.20 mg/dL [facility] Comment:result rechecked-JSJ Sodium 132(L) 135 - 145 mmol/L [facility] Potassium 3.8 3.5 - 5.0 mmol/L [facility] Comment: Please note: ??Patients with WBC >100,000 may have falsely elevated Potassium levels. ??For accurate Potassium quantification in these patients send serum separator tube (gold top) for subsequent determinations. ??Contact the Clinical Chemistry Laboratory if there are any questions. Chloride 95(L) 98 - 107 mmol/L [facility] Carbon Dioxide 20(L) 22 - 31 mmol/L [facility] Anion Gap 17(H) 5 - 15 mmol/L [facility] Calcium 8.3(L) 8.5 - 10.5 mg/dL [facility] Est Glomerular Filtration Rate 16(L) >=60 mL/min/1. 73 m?? [facility] [...] Lab Alirio Hudson MD CHEMISTRY ORDERABLE S [facility] [place] [address] * (ABNORMAL) BLOOD GAS 2 ARTERIAL (05/12/2023 3:57 PM EDT) pH, Arterial 7.39 7.35 - 7.45 [facility] PCO2, Arterial 33(L) 35 - 45 mmHg [facility] PO2, Arterial 101 85 - 104 mmHg [facility] Bicarbonate, Arterial 19.5(L) 20.0 - 26.0 mmol/L [facility] Base Excess, Arterial -5.5(L) -3.0 - 3.0 mmol/L [facility] Hgb Blood Gas 9.8(L) 11.7 - 15.5 g/dL [facility] Oxyhemoglobin, Arterial 95.2 94.0 - 97.0 % [facility] Carboxyhemoglob in, Arterial 0.2 % [facility] Comment: Nonsmokers: 0.5-1.5% COHB Smokers: Variable, but usually less than 10% Toxic: 20-30% COHB Lethal: Greater than 60% COHB Methemoglobin, Arterial 0.8 <=1.5 % [facility] Na Whole Blood 129(L) 135 - 145 mmol/L [facility] K Whole Blood 3.8 3.5 - 5.0 mmol/L [facility] Comment: Please note: Patients with WBC >100,000 may have falsely elevated Potassium levels. Contact the Clinical Chemistry Laboratory if there are any questions. ICa Whole Blood 1.05(L) 1.15 - 1.33 mmol/L [facility] Comment: Note: ??Total bilirubin higher than 20 mg/dL may lead to falsely low ionized calcium. CL Whole Blood 96(L) 98 - 107 mmol/L [facility] Gluc Whole Bld 178 65 - 199 mg/dL [facility] Comment:Diabetes: >=200 mg/d L plus symptoms. Lactate WB 1.5 0.5 - 2.2 mmol/L [facility] FIO2 Art 40 % [facility] PF Ratio Art 252 [facility] Blood 05/12/2023 3:57 PM EDT 05/12/2023 3:57 PM EDT Alirio Hudson MD POINT OF CARE TEST ORDERABLES [facility] [place] [address] * (ABNORMAL) Coox2 (05/12/2023 2:25 PM EDT) pO2, Coox 37 mmHg [facility] Hgb Blood Gas 9.5(L) 11.7 - 15.5 g/dL [facility] Oxyhemoglobin, Coox 59.9 % [facility] Carboxyhemoglo bin, Coox 0.3 % [facility] Comment: Nonsmokers: 0.5-1.5% COHB Smokers: Variable, but usually less than 10% Toxic: 20-30% COHB Lethal: Greater than 60% COHB Methemoglobin, Coox 0.7 <=1.5 % [facility] Source Coox Mixed Venous [facility] Blood 05/12/2023 2:25 PM EDT 05/12/2023 2:25 PM EDT Alirio Hudson MD POINT OF CARE TEST ORDERABLES [facility] [place] [address] * (ABNORMAL) BLOOD GAS 2 ARTERIAL (05/12/2023 2:23 PM EDT) pH, Arterial 7.37 7.35 - 7.45 [facility] PCO2, Arterial 36 35 - 45 mmHg [facility] PO2, Arterial 102 85 - 104 mmHg [facility] Bicarbonate, Arterial 20.4 20.0 - 26.0 mmol/L [facility] Base Excess, Arterial -4.8(L) -3.0 - 3.0 mmol/L [facility] Hgb Blood Gas 12.7 11.7 - 15.5 g/dL [facility] Oxyhemoglobin, Arterial 95.4 94.0 - 97.0 % [facility] Carboxyhemoglob in, Arterial 0.3 % [facility] Comment: Nonsmokers: 0.5-1.5% COHB Smokers: Variable, but usually less than 10% Toxic: 20-30% COHB Lethal: Greater than 60% COHB Methemoglobin, Arterial 0.7 <=1.5 % [facility] Na Whole Blood 129(L) 135 - 145 mmol/L [facility] K Whole Blood 3.7 3.5 - 5.0 mmol/L [facility] Comment: Please note: Patients with WBC >100,000 may have falsely elevated Potassium levels. Contact the Clinical Chemistry Laboratory if there are any questions. ICa Whole Blood 1.05(L) 1.15 - 1.33 mmol/L [facility] Comment: Note: ??Total bilirubin higher than 20 mg/dL may lead to falsely low ionized calcium. CL Whole Blood 95(L) 98 - 107 mmol/L [facility] Gluc Whole Bld 168 65 - 199 mg/dL [facility] Comment:Diabetes: >=200 mg/d L plus symptoms. Lactate WB 1.8 0.5 - 2.2 mmol/L [facility] FIO2 Art 40 % [facility] PF Ratio Art 255 [facility] Blood 05/12/2023 2:23 PM EDT 05/12/2023 2:23 PM EDT Alirio Hudson MD POINT OF CARE TEST ORDERABLES [facility] [place] [place] [address] * (ABNORMAL) Troponin (05/12/2023 2:05 PM EDT) Troponin-T, High Sensitivity 1,022(H) <=14 ng/L [facility] Comment: This patient's troponin [...] troponin value can be found in the [facility] Test Catalog Troponin - [facility] Test Catalog Reference: Fourth Woodward Definition of Myocardial Infarction. Journal of the [place] [employer] 2018;72:4518-9788 Blood 05/12/2023 2:05 PM EDT 05/12/2023 2:14 PM EDT Narrative Resulting Agency Comment Spec In Lab Alirio Hudson MD CHEMISTRY ORDERABLE S Performing Organization Address [facility]/ZIP Co de Phone Number [facility] [place] [address] * (ABNORMAL) Hemoglobin (05/12/2023 2:05 PM EDT) Hemoglobin 8.5(L) 11.7 - 15.5 g/dL [facility] Blood 05/12/2023 2:05 PM EDT 05/12/2023 2:14 PM EDT Narrative Resulting Agency Comment Spec In Lab Alirio Hudson MD HEMATOLOGY ORDERABL ES Performing Organization Address [facility] Co de Phone Number [facility] [place] [address] * Potassium (05/12/2023 2:05 PM EDT) Potassium 3.9 3.5 - 5.0 mmol/L [facility] ORDERABLE S Performing Organization Address [facility] Co de Phone Number [facility] [place] [address] * (ABNORMAL) BLOOD GAS 2 ARTERIAL (05/12/2023 11:05 AM EDT) pH, Arterial 7.34(L) 7.35 - 7.45 [facility] PCO2, Arterial 42 35 - 45 mmHg [facility] PO2, Arterial 73(L) 85 - 104 mmHg [facility] Bicarbonate, Arterial 22.1 20.0 - 26.0 mmol/L [facility] Base Excess, Arterial -3.6(L) -3.0 - 3.0 mmol/L [facility] Hgb Blood Gas 9.3(L) 11.7 - 15.5 g/dL [facility] Oxyhemoglobin, Arterial 89.3(L) 94.0 - 97.0 % [facility] Carboxyhemoglob in, Arterial 0.2 % [facility] Comment: Nonsmokers: 0.5-1.5% COHB Smokers: Variable, but usually less than 10% Toxic: 20-30% COHB Lethal: Greater than 60% COHB Methemoglobin, Arterial 0.9 <=1.5 % [facility] Na Whole Blood 131(L) 135 - 145 mmol/L [facility] K Whole Blood 3.8 3.5 - 5.0 mmol/L [facility] Comment: Please note: Patients with WBC >100,000 may have falsely elevated Potassium levels. Contact the Clinical Chemistry Laboratory if there are any questions. ICa Whole Blood 1.04(L) 1.15 - 1.33 mmol/L [facility] Comment: Note: ??Total bilirubin higher than 20 mg/dL may lead to falsely low ionized calcium. CL Whole Blood 96(L) 98 - 107 mmol/L [facility] Gluc Whole Bld 152 65 - 199 mg/dL [facility] Comment:Diabetes: >=200 mg/d L plus symptoms. Lactate WB 2.8(H) 0.5 - 2.2 mmol/L [facility] FIO2 Art 40 % [facility] PF Ratio Art 182 [facility] Blood 05/12/2023 11:0 5 AM EDT 05/12/2023 11:05 AM EDT Alirio Hudson MD POINT OF CARE TEST ORDERABLES [facility] [place] [address] * (ABNORMAL) BLOOD GAS 2 ARTERIAL (05/12/2023 10:14 AM EDT) pH, Arterial 7.18(Criti gabrielle) 7.35 - 7.45 [facility] Comment:Noted by musical instrument supervisor. PCO2, Arterial 45 35 - 45 mmHg [facility] PO2, Arterial 186(H) 85 - 104 mmHg [facility] Bicarbonate, Arterial 16.2(L) 20.0 - 26.0 mmol/L [facility] Base Excess, Arterial -12.2(L) -3.0 - 3.0 mmol/L [facility] Hgb Blood Gas 10.0(L) 11.7 - 15.5 g/dL [facility] Oxyhemoglobin, Arterial 97.0 94.0 - 97.0 % [facility] Carboxyhemoglob in, Arterial 0.2 % [facility] Comment: Nonsmokers: 0.5-1.5% COHB Smokers: Variable, but usually less than 10% Toxic: 20-30% COHB Lethal: Greater than 60% COHB Methemoglobin, Arterial 0.9 <=1.5 % [facility] Na Whole Blood 129(L) 135 - 145 mmol/L [facility] K Whole Blood 3.6 3.5 - 5.0 mmol/L [facility] Comment: Please note: Patients with WBC >100,000 may have falsely elevated Potassium levels. Contact the Clinical Chemistry Laboratory if there are any questions. ICa Whole Blood 1.10(L) 1.15 - 1.33 mmol/L [facility] Comment: Note: ??Total bilirubin higher than 20 mg/dL may lead to falsely low ionized calcium. CL Whole Blood 97(L) 98 - 107 mmol/L [facility] Gluc Whole Bld 161 65 - 199 mg/dL [facility] TEST ORDERABLES Performing Organization Address [facility] [place] [address] * EKG 12 Lead (05/12/2023 10:10 AM EDT) Ventricular rate 116 BPM MUSE SYSTEM Atrial Rate 116 BPM MUSE SYSTEM P-R Interval 158 ms MUSE SYSTEM QRS Duration 114 ms MUSE SYSTEM Q-T Interval 348 ms MUSE SYSTEM QTC Calculated (Bezet) 483 ms MUSE SYSTEM Calculated P Latham 37 degrees MUSE SYSTEM Calculated R Latham 31 degrees MUSE SYSTEM Calculated T Latham -138 degrees MUSE SYSTEM INTERPRETATION Sinus tachycardia [...] interpretation Confirmed by fellow MD Anuja, Jim ([id number]) on 05/12/2023 1:04:20 PM Confirmed by MD Mono, Eleni ([id number]) on 05/12/2023 9:28:34 PM MUSE SYSTEM 05/12/2023 10:1 0 AM EDT 05/12/2023 9:28 PM EDT Alirio Hudson MD ECG ORDERABLES Performing Organization Address [facility] Co de Phone [...] who have questions please contact the health cardiac care nurse that requested your imaging first. [...] course of the esophagus and outside the bjwot-ja-hwbw. Interval retraction of right IJ approach pulmonary [...] expected course ofthe esophagus and outside the zdcvg-sy-jqkn. Interval retraction of right IJ approach pulmonary [...] patients who have questions please contactthe health cardiac care nurse that requested your imaging first. Alirio Hudson MD IMG DX ORDERABLES * ECHO LMTD W/O CONTRAST W LMTD SPEC DOPP COLOR DOPP (05/12/2023 9:23 AM EDT) EF 20 HEARTLAB SYSTEM Anatomical Region Laterality Modality Cardiac Other 05/12/2023 7:33 AM EDT Narrative 05/12/2023 10:18 AM EDT ? Echocardiogram Report Name: PURNIMA THACKER ?Study Date: 05/12/2023 07:33 AMBP: 96/63 mmHg ? Patient Location: [address] : 1955 ? Height: 154 cm ? Account: [id number] Age: 67 yrs ? Weight: 75 kg [...] mL/m2. POST TAVR: Normal function of the lhsdo-hq-iczjy prosthesis. See below for hemodynamic parameters. Slight improvement in left and right ventricular systolic function. LVEF now 20-25%. No pericardial effusion. See report for additional findings. Procedure Limited - 19969. Doppler - 24309. Color Doppler - 76507. Left Ventricle Left ventricle is of normal [...] 307:33 AMBP: 96/63 mmHg Patient Location: [address] : 1955 Height: 154 cm Account: [id number] Age: 67 yrs Weight: 75 kg Gender: [...] 28mL/m2. POST TAVR: Normal function of the gcluo-ua-ygluj prosthesis. See belowfor hemodynamic parameters. Slight improvement in left and right ventricularsystolic function. LVEF now 20-25%. No pericardial effusion. See report for additional findings. Procedure Limited - 52424. Doppler - 09662. Color Doppler - 02101. Left Ventricle Left ventricle is of normal [...] Modality Other Narrative 05/12/2023 2:37 PM EDT ?[place] ? Cardiac Catheterization/Intervention Report ? Patient Name: Purnima Thacker. ? Procedure Date: 05/12/2023 ? A #: [id number] ? Primary Physician: Zachary, Antelmo De La Fuente ? Case #: [id number] ? File Name: [id number] ? Catheterization Order Number: [id number] ? [facility] ? Final Report [place], [place] ? Patient Name: ? Purnima M. Kirstie ? ID#: ?[id number] ? : ?1955 ? Procedure Date: ? [...] Device Deployment ?* Temporary Pacemaker Insertion In Professional Tutor ?* Endotracheal Intubation By Non-Cath Physician ?* [...] guide. ??A premounted 4.00 x 30 mm [place] (MINNA) was ? deployed with a maximum [...] calculated STS risk score was 30.1%. A eofks-ux-rcizq ?procedure was performed on the pre-existing bioprosthetic stented ?prosthesis. The priority of the qhins-mx-sshhm procedure was Elective. ?The procedure was performed [...] Lai 3 Ultra RESILIA 23 mm THV ([id number]/l=[id number]) transcatheter ?valve was inserted using standard technique. [...] to nor was it given in the ?terrazzo laborer. ?Recommended anti-platelet/anti-thrombotic regimen: ?Continue aspirin 81 mg daily for indefinitely. ?These recommendations are made at the time of the intervention. Patient ?and provider preferences or a changing clinical situation may require ?modification of this regimen. Consult [facility] Interventional Cardiology for ?questions. [...] regimen. ? Comments: ?Successful right transfemoral TAVR Dmpho-hm-Vbdoh with a 23 mm Lai 3 ?THV. [...] insertion-coronary, access site angiography, ?temporary pacemaker in terrazzo laborer, intubation-non cath physician, vascular ?closure device, transthoracic echo ??and TAVR. Dr. Alirio Hudson M.D. ?performed the left heart catheterization, access site angiography, ?temporary pacemaker in terrazzo laborer, vascular closure device, transthoracic ?echo , TAVR and CPR during cath. Dr. Lynda Mcgowan M.D. performed the ABG, ?anesthesia and intubation-non cath physician. ? Antelmo Sharma M.D. ? Electronically Signed by: Antelmo Sharma M.D. ? Report Finalized: 05/12/2023 ??14:31 ? Report Last Ammended: 07/01/2023 ??11:30 ? Procedure Note Antelmo Sharma MD - 07/01/2023 [place] Cardiac Catheterization/Intervention Report Patient Name: Purnima Thacker Procedure Date: 05/12/2023 A #: [id number] Primary Physician: Antelmo Sharma Case #: [id number] File Name: [id number] Catheterization Order Number: [id number] [facility] FinalReport [place], [place] Patient Name: Purnima Thacker ID#:[id number] :1955 Procedure Date: May 12, 2023 Case #: [id number] Room: 6 Case Physicians: Antelmo Sharma M.D. Start: 08:03 Alirio Hudson M.D. Admission:05/08/2023 Lynda Mcgowan M.D. Discharge:05/22/2023 Fellow: Rebekah Tejeda M.D. Referring Physician: Mario Alberto Chin M.D. Procedures: * Coronary Angiography * Left Heart Catheterization * Coronary Stent Insertion * Transcatheter Aortic Valve Replacement * Vascular Closure Device Deployment * Temporary Pacemaker Insertion In Professional Tutor * Endotracheal Intubation By Non-Cath Physician * [...] A premounted 4.00 x 30 mm [place] (MINNA) was deployed with a maximum inflation [...] calculated STS risk score was 30.1%. A onprg-ca-rfljr procedure was performed on the pre-existing bioprosthetic stented prosthesis. The priority of the hadaa-ap-bqihf procedure wasElective. The procedure was performed under Moderate sedation performed byLynda Mcgowan M.D. (see anesthesia report for additional details). Alirio Hudson M.D. participated in the case (see Cardiac Surgery reportfor additional details). The TAVR sheath was a 14 Fr Corona eSheath Introducer and theaccess site was femoral. Rapid ventricular pacing was performed. An Corona Lai 3 Ultra RESILIA 23 mm THV (s/w=[id number])transcatheter valve was inserted using standard technique. The [...] prior to nor was it given inthe terrazzo laborer. Recommended anti-platelet/anti-thrombotic regimen: Continue aspirin 81 mg daily for indefinitely. These recommendations are made at the time of the intervention.Patient and provider preferences or a changing clinical situation mayrequire modification of this regimen. Consult [facility] Interventional Cardiologyfor questions. Conclusions: [...] this regimen. Comments: Successful right transfemoral TAVR Jpnry-ty-Rfipc with a 23 mmSapien 3 THV. We [...] insertion-coronary, access site angiography, temporary pacemaker in terrazzo laborer, intubation-non cath physician,vascular closure device, transthoracic echo and TAVR. Dr. Alirio Hudson M.D. performed the left heart catheterization, access site angiography, temporary pacemaker in terrazzo laborer, vascular closure device,transthoracic echo , TAVR [...] pH, POC 7.20(Crit ical) 7.35 - 7.45 [facility] Comment:Critical value OK, C C Lab. pCO2, POC 42 35 - 45 mmHg [facility] pO2, POC 260(H) 85 - 104 mmHg [facility] Base Excess, POC -11.0(L) -3.0 - 3.0 mmol/L [facility] Bicarbonate, POC 16.7(L) 20.0 - 26.0 mmol/L [facility] Sodium, POC 129(L) 135 - 145 mmol/L [facility] POC Potassium 3.8 3.5 - 5.0 mmol/L [facility] Ionized Calcium, POC 1.12(L) 1.15 - 1.33 mmol/L [facility] POC Hematocrit 23.0(L) 34.0 - 45.0 % [facility] POC Calc Hgb 7.8(L) 11.2 - 15.7 g/dL [facility] Comment:The calculation of h emoglobin from hematocrit assumes a normal MCHC. POC Bgas Loc CC Lab [facility] Blood 05/12/2023 8:50 AM EDT 05/13/2023 12:00 PM EDT Alirio Hudson MD CHEMISTRY ORDERABLE S [facility] [place] [address] * (ABNORMAL) Point of Care Blood Gas Historical (05/12/2023 8:10 AM EDT) pH, POC 7.27(Crit ical) 7.35 - 7.45 [facility] Comment:Critical value OK, C C Lab. pCO2, POC 37 35 - 45 mmHg [facility] pO2, POC 29(Critic al) 85 - 104 mmHg [facility] Comment:Critical value OK, C C Lab. Base Excess, POC -10.0(L) -3.0 - 3.0 mmol/L [facility] Bicarbonate, POC 16.7(L) 20.0 - 26.0 mmol/L [facility] Sodium, POC 123(L) 135 - 145 mmol/L [facility] POC Potassium 4.0 3.5 - 5.0 mmol/L [facility] Ionized Calcium, POC 1.12(L) 1.15 - 1.33 mmol/L [facility] POC Hematocrit 27.0(L) 34.0 - 45.0 % [facility] POC Calc Hgb 9.2(L) 11.2 - 15.7 g/dL [facility] Comment:The calculation of h emoglobin from hematocrit assumes a normal MCHC. POC Bgas Loc CC Lab [facility] Blood 05/12/2023 8:10 AM EDT 05/13/2023 12:00 PM EDT Alirio Hudson MD CHEMISTRY ORDERABLE S Performing Organization Address City/[facility]/ZIP Co de Phone Number [facility] [place] [address] * (ABNORMAL) Lactate, whole blood, send to lab ([facility]) (05/12/2023 7:00 AM EDT) Lactate WB 2.4(H) 0.5 - 2.2 mmol/L [facility] Blood 05/12/2023 7:00 AM EDT 05/12/2023 7:09 AM EDT Narrative Resulting Agency Comment Spec In Lab Radha Hollins MD CHEMISTRY ORDERABL ES Performing Organization Address City/[facility]/ZIP Co de Phone Number [facility] [place] [address] * (ABNORMAL) Comprehensive metabolic panel (non-fasting) (05/12/2023 6:00 AM EDT) Glucose 167 65 - 199 mg/dL [facility] Comment:Diabetes: >=200 mg/d L plus symptoms Blood Urea Nitrogen 67(H) 8 - 18 mg/dL [facility] Creatinine 2.01(H) 0.70 - 1.20 mg/dL [facility] Sodium 131(L) 135 - 145 mmol/L [facility] Potassium 4.3 3.5 - 5.0 mmol/L [facility] Comment: Please note: ??Patients with WBC >100,000 may have falsely elevated Potassium levels. ??For accurate Potassium quantification in these patients send serum separator tube (gold top) for subsequent determinations. ??Contact the Clinical Chemistry Laboratory if there are any questions. Chloride 97(L) 98 - 107 mmol/L [facility] Carbon Dioxide 14(L) 22 - 31 mmol/L [facility] Anion Gap 20(H) 5 - 15 mmol/L [facility] Calcium 8.6 8.5 - 10.5 mg/dL [facility] Protein, Total 6.3 6.1 - 8.0 g/dL [facility] Albumin 3.5 3.2 - 5.2 g/dL [facility] Aspartate Aminotransferase 1,435(H) 0 - 30 unit/L [facility] Alanine Aminotransferase 1,174(H) 0 - 30 unit/L [facility] Alkaline Phosphatase 100 35 - 105 unit/L [facility] Bilirubin, Total 0.9 0.2 - 1.3 mg/dL [facility] Est Glomerular Filtration Rate 27(L) >=60 mL/min/1. 73 m?? [facility] [...] ORDERABL ES Performing Organization Address [facility] Co de Phone Number [facility] [place] [address] * (ABNORMAL) Coox2 (05/12/2023 5:08 AM EDT) pO2, Coox 24 mmHg [facility] Hgb Blood Gas 10.4(L) 11.7 - 15.5 g/dL [facility] Oxyhemoglobin, Coox 30.7 % [facility] Carboxyhemoglo bin, Coox 0.3 % [facility] Comment: Nonsmokers: 0.5-1.5% COHB Smokers: Variable, but usually less than 10% Toxic: 20-30% COHB Lethal: Greater than 60% COHB Methemoglobin, Coox 0.8 <=1.5 % [facility] Source Coox Mixed Venous [facility] Blood 05/12/2023 5:08 AM EDT 05/12/2023 5:08 AM EDT Radha Hollins MD POINT OF CARE TEST ORDERABLES Performing Organization Address [facility] Co de Phone Number [facility] [place] [address] * (ABNORMAL) Coox2 (05/12/2023 3:21 AM EDT) pO2, Coox 25 mmHg [facility] Hgb Blood Gas 10.8(L) 11.7 - 15.5 g/dL [facility] Oxyhemoglobin, Coox 32.7 % [facility] Carboxyhemoglo bin, Coox 0.3 % [facility] Comment: Nonsmokers: 0.5-1.5% COHB Smokers: Variable, but usually less than 10% Toxic: 20-30% COHB Lethal: Greater than 60% COHB Methemoglobin, Coox 0.7 <=1.5 % [facility] Source Coox Mixed Venous [facility] Blood 05/12/2023 3:21 AM EDT 05/12/2023 3:21 AM EDT Radha Hollins MD POINT OF CARE TEST ORDERABLES [facility] [place] [address] * (ABNORMAL) BLOOD GAS 2 ARTERIAL (05/12/2023 3:18 AM EDT) pH, Arterial 7.34(L) 7.35 - 7.45 [facility] PCO2, Arterial 30(L) 35 - 45 mmHg [facility] PO2, Arterial 72(L) 85 - 104 mmHg [facility] Bicarbonate, Arterial 16.0(L) 20.0 - 26.0 mmol/L [facility] Base Excess, Arterial -9.8(L) -3.0 - 3.0 mmol/L [facility] Hgb Blood Gas 11.0(L) 11.7 - 15.5 g/dL [facility] Oxyhemoglobin, Arterial 89.8(L) 94.0 - 97.0 % [facility] Carboxyhemoglob in, Arterial 0.3 % [facility] Comment: Nonsmokers: 0.5-1.5% COHB Smokers: Variable, but usually less than 10% Toxic: 20-30% COHB Lethal: Greater than 60% COHB Methemoglobin, Arterial 0.7 <=1.5 % [facility] Na Whole Blood 131(L) 135 - 145 mmol/L [facility] K Whole Blood 4.2 3.5 - 5.0 mmol/L [facility] Comment: Please note: Patients with WBC >100,000 may have falsely elevated Potassium levels. Contact the Clinical Chemistry Laboratory if there are any questions. ICa Whole Blood 1.12(L) 1.15 - 1.33 mmol/L [facility] Comment: Note: ??Total bilirubin higher than 20 mg/dL may lead to falsely low ionized calcium. CL Whole Blood 100 98 - 107 mmol/L [facility] Gluc Whole Bld 160 65 - 199 mg/dL [facility] Comment:Diabetes: >=200 mg/d L plus symptoms. Lactate WB 2.7(H) 0.5 - 2.2 mmol/L [facility] Flow Art 5.0 LPM [facility] Blood 05/12/2023 3:18 AM EDT 05/12/2023 3:18 AM EDT Radha Hollins MD POINT OF CARE TEST ORDERABLES Performing Organization Address City/[facility] Co de Phone Number [facility] [place] [address] * (ABNORMAL) Coox2 (05/12/2023 1:14 AM EDT) pO2, Coox 28 mmHg [facility] Hgb Blood Gas 10.9(L) 11.7 - 15.5 g/dL [facility] Oxyhemoglobin, Coox 37.3 % [facility] Carboxyhemoglo bin, Coox 0.3 % [facility] Comment: Nonsmokers: 0.5-1.5% COHB Smokers: Variable, but usually less than 10% Toxic: 20-30% COHB Lethal: Greater than 60% COHB Methemoglobin, Coox 0.5 <=1.5 % [facility] Source Coox Mixed Venous [facility] Blood 05/12/2023 1:14 AM EDT 05/12/2023 1:14 AM EDT Radha Hollins MD POINT OF CARE TEST ORDERABLES Performing Organization Address [facility] Co de Phone Number [facility] [place] [address] * (ABNORMAL) BLOOD GAS 2 ARTERIAL (05/12/2023 1:06 AM EDT) pH, Arterial 7.34(L) 7.35 - 7.45 [facility] PCO2, Arterial 30(L) 35 - 45 mmHg [facility] PO2, Arterial 81(L) 85 - 104 mmHg [facility] Bicarbonate, Arterial 15.7(L) 20.0 - 26.0 mmol/L [facility] Base Excess, Arterial -10.1(L) -3.0 - 3.0 mmol/L [facility] Hgb Blood Gas 11.0(L) 11.7 - 15.5 g/dL [facility] Oxyhemoglobin, Arterial 92.3(L) 94.0 - 97.0 % [facility] Carboxyhemoglob in, Arterial 0.2 % [facility] Comment: Nonsmokers: 0.5-1.5% COHB Smokers: Variable, but usually less than 10% Toxic: 20-30% COHB Lethal: Greater than 60% COHB Methemoglobin, Arterial 0.6 <=1.5 % [facility] Na Whole Blood 131(L) 135 - 145 mmol/L [facility] K Whole Blood 4.2 3.5 - 5.0 mmol/L [facility] Comment: Please note: Patients with WBC >100,000 may have falsely elevated Potassium levels. Contact the Clinical Chemistry Laboratory if there are any questions. ICa Whole Blood 1.13(L) 1.15 - 1.33 mmol/L [facility] Comment: Note: ??Total bilirubin higher than 20 mg/dL may lead to falsely low ionized calcium. CL Whole Blood 99 98 - 107 mmol/L [facility] Gluc Whole Bld 132 65 - 199 mg/dL [facility] Comment:Diabetes: >=200 mg/d L plus symptoms. Lactate WB 2.7(H) 0.5 - 2.2 mmol/L [facility] Flow Art 5.0 LPM [facility] Blood 05/12/2023 1:06 AM EDT 05/12/2023 1:06 AM EDT Radha Hollins MD POINT OF CARE TEST ORDERABLES [facility] [place] [address] * (ABNORMAL) Differential, Automated (05/12/2023 1:05 AM EDT) Neutrophil % 83.3 % [facility] Neutrophil Absolute 7.49(H) 1.70 - 6.10 x10(3)/mc L [facility] Lymph % 7.1 % [facility] Lymphocytes Abs 0.6(L) 0.9 - 3.2 x10(3)/mc L [facility] Monocyte % 8.9 % [facility] Monocyte Abs 0.8 0.3 - 0.9 x10(3)/mc L [facility] Eos % 0.0 % [facility] Eosinophils Abs 0.0 0.0 - 0.4 x10(3)/ L [facility] Basophil % 0.1 % [facility] Baso Absolute 0.0 0.0 - 0.1 x10(3)/ L [facility] Immature Gran % 0.60 % [facility] Comment: Immature granulocytes(IG's)percentage and absolute count will include metamyelocytes, myelocytes, and promyelocytes. Blood smears from CBCs yielding IG's will be scanned manually for concordance. If this scan disagrees with the automated IG or if promyelocytes are noted, a manual differential will be performed. Immature Gran Absolute 0.05(H) 0.00 - 0.04 x10(3)/ L [facility] Blood 05/12/2023 1:05 AM EDT 05/12/2023 1:15 AM EDT Narrative Resulting Agency Comment Spec In Lab Gianni Fletcher MD HEMATOLOGY ORDERABLE S [facility] [place] [address] * (ABNORMAL) Hemogram (05/12/2023 1:05 AM EDT) White Blood Cell 9.0 4.0 - 9.5 x10(3)/ L [facility] Red Blood Cell 3.01(L) 4.00 - 5.21 x10(6)/ L [facility] Hemoglobin 9.8(L) 11.7 - 15.5 g/dL [facility] Hematocrit 28.7(L) 35.7 - 45.8 % [facility] Mean Cell Volume 95.3(H) 82.6 - 94.4 fL [facility] Mean Cell Hemoglobin 32.6(H) 27.1 - 32.0 pg [facility] Mean Cell Hemoglobin Concentration 34.1 31.7 - 35.0 g/dL [facility] Platelet 186 145 - 357 x10(3)/ L [facility] RDW Standard Deviation 43.7 37.0 - 46.0 fL [facility] RDW coefficient of variation 12.7 11.5 - 14.1 % [facility] Mean Platelet Volume 10.3 7.6 - 12.9 fL [facility] NRBC% auto 0.0 % [facility] NRBC Absolute 0.000 0.000 - 0.000 x10(3)/mc L [facility] Blood 05/12/2023 1:05 AM EDT 05/12/2023 1:15 AM EDT Narrative Resulting Agency Comment Spec In Lab Gianni Fletcher MD HEMATOLOGY ORDERABLE S [facility] [place] [address] * (ABNORMAL) Comprehensive metabolic panel (non-fasting) (05/12/2023 1:05 AM EDT) Glucose 141 65 - 199 mg/dL [facility] Comment:Diabetes: >=200 mg/d L plus symptoms Blood Urea Nitrogen 63(H) 8 - 18 mg/dL [facility] Creatinine 1.86(H) 0.70 - 1.20 mg/dL [facility] Sodium 131(L) 135 - 145 mmol/L [facility] Potassium 4.4 3.5 - 5.0 mmol/L [facility] Comment: Please note: ??Patients with WBC >100,000 may have falsely elevated Potassium levels. ??For accurate Potassium quantification in these patients send serum separator tube (gold top) for subsequent determinations. ??Contact the Clinical Chemistry Laboratory if there are any questions. Chloride 96(L) 98 - 107 mmol/L [facility] Carbon Dioxide 14(L) 22 - 31 mmol/L [facility] Anion Gap 21(H) 5 - 15 mmol/L [facility] Calcium 9.0 8.5 - 10.5 mg/dL [facility] Protein, Total 6.6 6.1 - 8.0 g/dL [facility] Albumin 3.9 3.2 - 5.2 g/dL [facility] Aspartate Aminotransferase 1,227(H) 0 - 30 unit/L [facility] Alanine Aminotransferase 1,097(H) 0 - 30 unit/L [facility] Alkaline Phosphatase 108(H) 35 - 105 unit/L [facility] Bilirubin, Total 1.0 0.2 - 1.3 mg/dL [facility] Est Glomerular Filtration Rate 29(L) >=60 mL/min/1. 73 m?? [facility] Lab Radha Hollins MD CHEMISTRY ORDERABL ES [facility] [place] [address] * XR Chest One View (05/12/2023 1:00 [...] who have questions please contact the health cardiac care nurse that requested your imaging first. [...] patients who have questions please contactthe health cardiac care nurse that requested your imaging first. Radha Hollins MD IMG DX ORDERABLES * (ABNORMAL) Coox2 (05/12/2023 12:30 AM EDT) pO2, Coox 22 mmHg [facility] Hgb Blood Gas 10.9(L) 11.7 - 15.5 g/dL [facility] Oxyhemoglobin, Coox 25.1 % [facility] Carboxyhemoglo bin, Coox 0.3 % [facility] Comment: Nonsmokers: 0.5-1.5% COHB Smokers: Variable, but usually less than 10% Toxic: 20-30% COHB Lethal: Greater than 60% COHB Methemoglobin, Coox 1.4 <=1.5 % [facility] Source Coox Mixed Venous [facility] Blood 05/12/2023 12:3 0 AM EDT 05/12/2023 12:30 AM EDT Radha Hollins MD POINT OF CARE TEST ORDERABLES Performing Organization Address City/State/[facility] Co de Phone Number [facility] [place] [address] * XR Chest One View (05/11/2023 11:45 [...] who have questions please contact the health cardiac care nurse that requested your imaging first. [...] patients who have questions please contactthe health cardiac care nurse that requested your imaging first. Radha Hollins MD IMG DX ORDERABLES * (ABNORMAL) Lactate, whole blood, send to lab ([facility]) (05/11/2023 7:40 PM EDT) Lactate WB 4.8(Critic al) 0.5 - 2.2 mmol/L [facility] Comment:Called by: IMM, Read back by: Magdalena Baires, Date/Time:05/11/23 19:54. Blood 05/11/2023 7:40 PM EDT 05/11/2023 7:49 PM EDT Narrative Resulting Agency Comment Spec In Lab Radha Hollins MD CHEMISTRY ORDERABL ES Performing Organization Address City/[facility]/ZIP Co de Phone Number [facility] [place] [address] * Urine culture (05/11/2023 7:22 PM EDT) [facility] Urine Culture 50,000-99,000 cfu/ml Normal mucosal herman Susceptibilit y testing not routinely performed for Coagulase Negative Staphylococcu s species and other Gram Positive organisms from urine. [facility] Clean Catch Urine 05/11/2023 7:22 PM EDT 05/11/2023 8:50 PM EDT Narrative Resulting Agency Comment Spec In Lab Brody Kaplan APRN MICROBIOLOGY - [place] [address] * (ABNORMAL) Urinalysis Microscopic Exam (05/11/2023 7:22 PM EDT) RBC, Urine 2 0 - 4 /HPF [facility] WBC, Urine >100(H) 0 - 5 /HPF [facility] Bacteria, Urine Occasional (A) None /HPF [facility] Squamous Epithelial Cells Raw Data, Urine 5(H) <=4 /HPF [facility] Hyaline Casts, Urine 3(H) 0 - 2 /LPF [facility] Clean Catch Urine 05/11/2023 7:22 PM EDT 05/11/2023 7:31 PM EDT Narrative Resulting Agency Comment Spec In Lab Brody Kaplan TRAFFIC [employer]IE[employer]ENANT URINE ORDERABLES Performing Organization Address [facility] de Phone Number [facility] [place] [address] * (ABNORMAL) Urinalysis with reflex Culture (05/11/2023 7:22 PM EDT) Glucose, Urine Dipstick Negative Negative mg/dL [facility] Protein, Urine Dipstick Trace(A) Negative mg/dL [facility] Bilirubin, Urine Dipstick Negative Negative mg/dL [facility] Comment: Clinical correlation required for positive Urine Bilirubin results as false positive may occur with some drugs and drug related products. If a false positive is suspected a serum total bilirubin should be considered if clinically indicated. Urobilinogen, Urine Dipstick Normal Normal mg/dL [facility] pH, Urn (dipstick) 5.0 5.0 - 8.0 [facility] Blood, Urine Dipstick Trace(A) Negative mg/dL [facility] Ketone, Urine Dipstick Negative Negative mg/dL [facility] Nitrite, Urine Dipstick Negative Negative [facility] Leukocytes, Urine Dipstick Moderate(A) Negative mcL [facility] Appearance, Urine Dipstick Cloudy(A) Clear [facility] Specific [place] Urine Automated >=1.030(A) 1.005 - 1.030 [facility] Color, Urine Dipstick Yellow Yellow [facility] Reflex to Culture Yes [facility] Clean Catch Urine 05/11/2023 7:22 PM EDT 05/11/2023 7:31 PM EDT Narrative Resulting Agency Comment Spec In Lab Brody Kaplan TRA[employer]IC [employer]IE[employer] URINE ORDERABLES Performing Organization Address City/[facility] Co de Phone Number [facility] [place] [address] * (ABNORMAL) pro-Brain Natriuretic Peptide (05/11/2023 7:11 PM EDT) NT-proBNP >35,000(H) <=124 pg/mL [facility] Blood 05/11/2023 7:11 PM EDT 05/11/2023 7:26 PM EDT Narrative Resulting Agency Comment Spec In Lab Radha Hollins MD CHEMISTRY ORDERABL ES Performing Organization Address City/[facility]/ZIP Co de Phone Number [facility] [place] [address] * (ABNORMAL) Lactate, whole blood, send to lab ([facility]) (05/11/2023 2:47 PM EDT) Lactate WB 2.9(H) 0.5 - 2.2 mmol/L [facility] Blood 05/11/2023 2:47 PM EDT 05/11/2023 2:53 PM EDT Narrative Resulting Agency Comment Spec In Lab Juan Luis Gonzalez MD CHEMISTRY ORDERABLES Performing Organization Address [facility] [place] [address] * (ABNORMAL) CT Angiogram Abdomen & Pelvis [...] who have questions please contact the health cardiac care nurse that requested your imaging first. [...] who have questions please contact the health cardiac care nurse that requested your imaging first. [...] 610 mm2 Circumference: 88 mm Calcification: Mild Getbvee-hv-eydcpukk height: Left: 6.2 mm Right: 5.8 mm THORACIC AORTA Description: Normal course and caliber. ??Mild diffuse atherosclerotic changes. No acute aortopathy noted. Car[employer] Grader Inspector dimensions: Aortic root: 27.6 mm Max [...] 610 mm2 Circumference: 88 mm Calcification: Mild Lblyqds-si-[id number] height: Left: 6.2 mm Right: 5.8 mm THORACIC AORTA Description: Normal course and caliber. Mild diffuse atheroscleroticchanges. No acute aortopathy noted. Carrot Grader Inspector dimensions: Aortic root: 27.6 mm Max [...] patients who have questions please contactthe health cardiac care nurse that requested your imaging first. Antelmo Sharma MD IMG CT ORDERABLES * (ABNORMAL) Lactate, whole blood, send to lab ([facility]) (05/11/2023 9:29 AM EDT) Pathologist [facility] Lactate WB 3.1(H) 0.5 - 2.2 mmol/L [facility] Blood 05/11/2023 9:29 AM EDT 05/11/2023 9:38 AM EDT Narrative Resulting Agency Comment Spec In Lab Juan Luis Gonzalez MD CHEMISTRY ORDERABLES [facility] [place] [address] * (ABNORMAL) Differential, Automated (05/11/2023 4:42 AM EDT) Pathologist [facility] Neutrophil % 78.1 % [facility] Neutrophil Absolute 5.46 1.70 - 6.10 x10(3)/mc L [facility] Lymph % 10.6 % [facility] Lymphocytes Abs 0.7(L) 0.9 - 3.2 x10(3)/ L [facility] Monocyte % 9.6 % [facility] Monocyte Abs 0.7 0.3 - 0.9 x10(3)/[facility] Eos % 0.0 % [facility] Eosinophils Abs 0.0 0.0 - 0.4 x10(3)/[facility] Basophil % 0.4 % [facility] Baso Absolute 0.0 0.0 - 0.1 x10(3)/[facility] Immature Gran % 1.30 % [facility] Comment: Immature granulocytes(IG's)percentage and absolute count will include metamyelocytes, myelocytes, and promyelocytes. Blood smears from CBCs yielding IG's will be scanned manually for concordance. If this scan disagrees with the automated IG or if promyelocytes are noted, a manual differential will be performed. Immature Gran Absolute 0.09(H) 0.00 - 0.04 x10(3)/ L [facility] Blood 05/11/2023 4:42 AM EDT 05/11/2023 4:49 AM EDT Narrative Resulting Agency Comment Spec In Lab Klaudia Reid MD HEMATOLOGY OR DERABLES Performing Organization Address City/State/[facility] Co de Phone Number [facility] [place] [address] * (ABNORMAL) Hemogram (05/11/2023 4:42 AM EDT) White Blood Cell 7.0 4.0 - 9.5 x10(3)/[facility] Red Blood Cell 3.44(L) 4.00 - 5.21 x10(6)/[facility] Hemoglobin 11.1(L) 11.7 - 15.5 g/dL [facility] Hematocrit 32.7(L) 35.7 - 45.8 % [facility] Mean Cell Volume 95.1(H) 82.6 - 94.4 fL [facility] Mean Cell Hemoglobin 32.3(H) 27.1 - 32.0 pg [facility] Mean Cell Hemoglobin Concentration 33.9 31.7 - 35.0 g/dL [facility] Platelet 165 145 - 357 x10(3)/mc L [facility] RDW Standard Deviation 43.1 37.0 - 46.0 fL [facility] RDW coefficient of variation 12.7 11.5 - 14.1 % [facility] Mean Platelet Volume 10.1 7.6 - 12.9 fL [facility] NRBC% auto 0.0 % [facility] NRBC Absolute 0.000 0.000 - 0.000 x10(3)/mc L [facility] Blood 05/11/2023 4:42 AM EDT 05/11/2023 4:49 AM EDT Narrative Resulting Agency Comment Spec In Lab Klaudia Reid MD HEMATOLOGY OR DERABLES Performing Organization Address City/[facility] de Phone Number [facility] [place] [address] * Heparin (unfractionated) Level (05/11/2023 4:42 AM [...] Lab Radha Hollins MD HEMATOLOGY ORDERAB LES [facility] [place] [address] * (ABNORMAL) Comprehensive metabolic panel (non-fasting) (05/11/2023 4:42 AM EDT) Glucose 143 65 - 199 mg/dL [facility] Comment:Diabetes: >=200 mg/d L plus symptoms Blood Urea Nitrogen 42(H) 8 - 18 mg/dL [facility] Creatinine 1.24(H) 0.70 - 1.20 mg/dL [facility] Sodium 134(L) 135 - 145 mmol/L [facility] Potassium 4.6 3.5 - 5.0 mmol/L [facility] Comment: Please note: ??Patients with WBC >100,000 may have falsely elevated Potassium levels. ??For accurate Potassium quantification in these patients send serum separator tube (gold top) for subsequent determinations. ??Contact the Clinical Chemistry Laboratory if there are any questions. Chloride 99 98 - 107 mmol/L [facility] Carbon Dioxide 14(L) 22 - 31 mmol/L [facility] Anion Gap 21(H) 5 - 15 mmol/L [facility] Calcium 9.6 8.5 - 10.5 mg/dL [facility] Protein, Total 7.2 6.1 - 8.0 g/dL [facility] Albumin 3.7 3.2 - 5.2 g/dL [facility] Aspartate Aminotransferase 144(H) 0 - 30 unit/L [facility] Comment:result rechecked-ssc Alanine Aminotransferase 130(H) 0 - 30 unit/L [facility] Comment:result rechecked-ssc Alkaline Phosphatase 72 35 - 105 unit/L [facility] Bilirubin, Total 0.8 0.2 - 1.3 mg/dL [facility] Est Glomerular Filtration Rate 48(L) >=60 mL/min/1. 73 m?? [facility] [...] MD CHEMISTRY ORDERABL ES Performing Organization Address City/[facility]/ZIP Co de Phone Number [facility] [place] [address] * EKG 12 Lead (05/10/2023 1:16 PM EDT) Ventricular rate 118 BPM MUSE SYSTEM Atrial Rate 118 BPM MUSE SYSTEM P-R Interval 152 ms MUSE SYSTEM QRS Duration 104 ms MUSE SYSTEM Q-T Interval 316 ms MUSE SYSTEM QTC Calculated (Bezet) 442 ms MUSE SYSTEM Calculated P Latham 29 degrees MUSE SYSTEM Calculated R Latham 18 degrees MUSE SYSTEM Calculated T Latham -173 degrees MUSE SYSTEM INTERPRETATION Sinus tachycardia [...] Anterior leads Confirmed by MD Villareal Danette ([id number]) on 05/10/2023 8:47:46 PM MUSE SYSTEM 05/10/2023 1:16 PM EDT 05/10/2023 8:47 PM EDT Juan Luis Gonzalez MD ECG ORDERABLES Performing Organization Address City/[facility]/ZIP Co de Phone Number MUSE SYSTEM * Lactate, whole blood, send to lab ([facility]) (05/10/2023 11:52 AM EDT) Lactate WB 1.8 0.5 - 2.2 mmol/L [facility] Blood 05/10/2023 11:5 2 AM EDT 05/10/2023 12:13 PM EDT Narrative Resulting Agency Comment Spec In Lab Juan Luis Gonzalez MD CHEMISTRY ORDERABLES [facility] [place] [address] * XR Chest One View (05/10/2023 11:16 [...] who have questions please contact the health cardiac care nurse that requested your imaging first. [...] patients who have questions please contactthe health cardiac care nurse that requested your imaging first. Juan Luis Gonzalez MD IMG DX ORDERABLES * EKG 12 Lead (05/10/2023 7:59 AM EDT) Ventricular rate 115 BPM MUSE SYSTEM Atrial Rate 115 BPM MUSE SYSTEM P-R Interval 142 ms MUSE SYSTEM QRS Duration 102 ms MUSE SYSTEM Q-T Interval 322 ms MUSE SYSTEM QTC Calculated (Bezet) 445 ms MUSE SYSTEM Calculated P Latham 36 degrees MUSE SYSTEM Calculated R Latham 28 degrees MUSE SYSTEM Calculated T Latham -119 degrees MUSE SYSTEM INTERPRETATION Sinus tachycardia with frequent Premature ventricular complexes and Fusion complexes ST & T wave abnormality, consider lateral ischemia Abnormal ECG When compared with ECG of 08-MAY-2023 15:51, No significant change was found I personally reviewed the tracing and edited the fellows interpretation Confirmed by fellow MD Welsh Hanyuan ([id number]) on 05/11/2023 6:19:54 AM Confirmed by MD Ugalde Hannah ([id number]) on 05/11/2023 3:18:56 PM MUSE SYSTEM 05/10/2023 7:59 AM EDT 05/11/2023 3:18 PM EDT Radha Hollins MD ECG ORDERABLES MUSE SYSTEM * (ABNORMAL) Differential, Automated (05/10/2023 2:28 AM EDT) Neutrophil % 77.1 % [facility] Neutrophil Absolute 4.01 1.70 - 6.10 x10(3)/mc L [facility] Lymph % 14.0 % [facility] Lymphocytes Abs 0.7(L) 0.9 - 3.2 x10(3)/mc L [facility] Monocyte % 7.7 % [facility] Monocyte Abs 0.4 0.3 - 0.9 x10(3)/ L [facility] Eos % 0.4 % [facility] Eosinophils Abs 0.0 0.0 - 0.4 x10(3)/[facility] Basophil % 0.4 % [facility] Baso Absolute 0.0 0.0 - 0.1 x10(3)/ L [facility] Immature Gran % 0.40 % [facility] Comment: Immature granulocytes(IG's)percentage and absolute count will include metamyelocytes, myelocytes, and promyelocytes. Blood smears from CBCs yielding IG's will be scanned manually for concordance. If this scan disagrees with the automated IG or if promyelocytes are noted, a manual differential will be performed. Immature Gran Absolute 0.02 0.00 - 0.04 x10(3)/ L [facility] Blood 05/10/2023 2:28 AM EDT 05/10/2023 2:57 AM EDT Narrative Resulting Agency Comment Spec In Lab Klaudia Reid MD HEMATOLOGY OR DERABLES [facility] [place] [address] * (ABNORMAL) Hemogram (05/10/2023 2:28 AM EDT) White Blood Cell 5.2 4.0 - 9.5 x10(3)/mc L [facility] Red Blood Cell 3.11(L) 4.00 - 5.21 x10(6)/mc L [facility] Hemoglobin 10.2(L) 11.7 - 15.5 g/dL [facility] Hematocrit 30.2(L) 35.7 - 45.8 % [facility] Mean Cell Volume 97.1(H) 82.6 - 94.4 fL [facility] Mean Cell Hemoglobin 32.8(H) 27.1 - 32.0 pg [facility] Mean Cell Hemoglobin Concentration 33.8 31.7 - 35.0 g/dL [facility] Platelet 151 145 - 357 x10(3)/mc L [facility] RDW Standard Deviation 44.9 37.0 - 46.0 fL [facility] RDW coefficient of variation 12.8 11.5 - 14.1 % [facility] Mean Platelet Volume 9.8 7.6 - 12.9 fL [facility] NRBC% auto 0.0 % [facility] NRBC Absolute 0.000 0.000 - 0.000 x10(3)/mc L [facility] Blood 05/10/2023 2:28 AM EDT 05/10/2023 2:57 AM EDT Narrative Resulting Agency Comment Spec In Lab Klaudia Reid MD HEMATOLOGY OR DERABLES Performing Organization Address City/State/[facility] Co de Phone Number [facility] [place] [address] * (ABNORMAL) Comprehensive metabolic panel (non-fasting) (05/10/2023 2:28 AM EDT) Glucose 100 65 - 199 mg/dL [facility] Comment:Diabetes: >=200 mg/d L plus symptoms Blood Urea Nitrogen 30(H) 8 - 18 mg/dL [facility] Creatinine 0.90 0.70 - 1.20 mg/dL [facility] Sodium 134(L) 135 - 145 mmol/L [facility] Potassium 4.1 3.5 - 5.0 mmol/L [facility] Comment: Please note: ??Patients with WBC >100,000 may have falsely elevated Potassium levels. ??For accurate Potassium quantification in these patients send serum separator tube (gold top) for subsequent determinations. ??Contact the Clinical Chemistry Laboratory if there are any questions. Chloride 102 98 - 107 mmol/L [facility] Carbon Dioxide 20(L) 22 - 31 mmol/L [facility] Anion Gap 12 5 - 15 mmol/L [facility] Calcium 9.3 8.5 - 10.5 mg/dL [facility] Protein, Total 6.4 6.1 - 8.0 g/dL [facility] Albumin 3.7 3.2 - 5.2 g/dL [facility] Aspartate Aminotransferase 24 0 - 30 unit/L [facility] Alanine Aminotransferase 14 0 - 30 unit/L [facility] Alkaline Phosphatase 70 35 - 105 unit/L [facility] Bilirubin, Total 0.5 0.2 - 1.3 mg/dL [facility] Est Glomerular Filtration Rate 70 >=60 mL/min/1. 73 m?? [facility] [...] Lab Radha Hollins MD CHEMISTRY ORDERABL ES [facility] [place] [address] * Heparin (unfractionated) Level (05/10/2023 2:28 AM [...] Lab Radha Hollins MD HEMATOLOGY ORDERAB LES [facility] [place] [address] * (ABNORMAL) Differential, Automated (05/09/2023 4:00 AM EDT) Neutrophil % 81.7 % [facility] Neutrophil Absolute 5.26 1.70 - 6.10 x10(3)/mc L [facility] Lymph % 10.7 % [facility] Lymphocytes Abs 0.7(L) 0.9 - 3.2 x10(3)/mc L [facility] Monocyte % 6.5 % [facility] Monocyte Abs 0.4 0.3 - 0.9 x10(3)/mc L [facility] Eos % 0.5 % [facility] Eosinophils Abs 0.0 0.0 - 0.4 x10(3)/mc L [facility] Basophil % 0.3 % [facility] Baso Absolute 0.0 0.0 - 0.1 x10(3)/mc L [facility] Immature Gran % 0.30 % [facility] Comment: Immature granulocytes(IG's)percentage and absolute count will include metamyelocytes, myelocytes, and promyelocytes. Blood smears from CBCs yielding IG's will be scanned manually for concordance. If this scan disagrees with the automated IG or if promyelocytes are noted, a manual differential will be performed. Immature Gran Absolute 0.02 0.00 - 0.04 x10(3)/mc L [facility] Blood 05/09/2023 4:00 AM EDT 05/09/2023 4:19 AM EDT Narrative Resulting Agency Comment Spec In Lab Klaudia Reid MD HEMATOLOGY OR DERABLES [facility] [place] [address] * (ABNORMAL) Hemogram (05/09/2023 4:00 AM EDT) White Blood Cell 6.4 4.0 - 9.5 x10(3)/mc L [facility] Red Blood Cell 3.15(L) 4.00 - 5.21 x10(6)/mc L [facility] Hemoglobin 10.2(L) 11.7 - 15.5 g/dL [facility] Hematocrit 30.3(L) 35.7 - 45.8 % [facility] Mean Cell Volume 96.2(H) 82.6 - 94.4 fL [facility] Mean Cell Hemoglobin 32.4(H) 27.1 - 32.0 pg [facility] Mean Cell Hemoglobin Concentration 33.7 31.7 - 35.0 g/dL [facility] Platelet 151 145 - 357 x10(3)/mc L [facility] RDW Standard Deviation 44.7 37.0 - 46.0 fL [facility] RDW coefficient of variation 12.8 11.5 - 14.1 % [facility] Mean Platelet Volume 9.4 7.6 - 12.9 fL [facility] NRBC% auto 0.0 % [facility] NRBC Absolute 0.000 0.000 - 0.000 x10(3)/mc L [facility] Blood 05/09/2023 4:00 AM EDT 05/09/2023 4:19 AM EDT Narrative Resulting Agency Comment Spec In Lab Klaudia Reid MD HEMATOLOGY OR DERABLES Performing Organization Address City/[facility]/ZIP Co de Phone Number [facility] [place] [address] * Heparin (unfractionated) Level (05/09/2023 4:00 AM EDT) UF Heparin 0.47 IU/mL [facility] [...] MD HEMATOLOGY ORDERAB LES Performing Organization Address City/State/[facility] Co de Phone Number [facility] [place] [address] * (ABNORMAL) Comprehensive metabolic panel (non-fasting) (05/09/2023 4:00 AM EDT) Glucose 108 65 - 199 mg/dL [facility] Comment:Diabetes: >=200 mg/d L plus symptoms Blood Urea Nitrogen 31(H) 8 - 18 mg/dL [facility] Creatinine 1.03 0.70 - 1.20 mg/dL [facility] Sodium 137 135 - 145 mmol/L [facility] Potassium 4.4 3.5 - 5.0 mmol/L [facility] Comment: Please note: ??Patients with WBC >100,000 may have falsely elevated Potassium levels. ??For accurate Potassium quantification in these patients send serum separator tube (gold top) for subsequent determinations. ??Contact the Clinical Chemistry Laboratory if there are any questions. Chloride 102 98 - 107 mmol/L [facility] Carbon Dioxide 20(L) 22 - 31 mmol/L [facility] Anion Gap 15 5 - 15 mmol/L [facility] Calcium 9.3 8.5 - 10.5 mg/dL [facility] Protein, Total 6.6 6.1 - 8.0 g/dL [facility] Albumin 3.8 3.2 - 5.2 g/dL [facility] Aspartate Aminotransferase 32(H) 0 - 30 unit/L [facility] Alanine Aminotransferase 18 0 - 30 unit/L [facility] Alkaline Phosphatase 78 35 - 105 unit/L [facility] Bilirubin, Total 0.5 0.2 - 1.3 mg/dL [facility] Est Glomerular Filtration Rate 60 >=60 mL/min/1. 73 m?? [facility] [...] ORDERABL ES Performing Organization Address [facility] Co de Phone Number [facility] [place] [address] * (ABNORMAL) pro-Brain Natriuretic Peptide (05/08/2023 4:00 PM EDT) NT-proBNP 25,503(H) <=124 pg/mL [facility] Blood Venous Draw / Unknown 05/08/2023 4:00 PM EDT 05/08/2023 4:25 PM EDT Narrative Resulting Agency Comment Spec In Lab Juan Luis Gonzalez MD CHEMISTRY ORDERABLES Performing Organization Address City/[facility]/ZIP Co de Phone Number [facility] [place] [address] * Magnesium (05/08/2023 4:00 PM EDT) Magnesium 0.82 0.69 - 1.07 mmol/L [facility] Blood 05/08/2023 4:00 PM EDT 05/08/2023 4:06 PM EDT Narrative Resulting Agency Comment Spec In Lab Enrique Chua MD CHEMISTRY ORDERABLES Performing Organization Address [facility] Co de Phone Number [facility] [place] [address] * Potassium (05/08/2023 4:00 PM EDT) Pathologist [facility] Potassium 3.9 3.5 - 5.0 mmol/L [facility] Comment: Please note: ??Patients [...] MD CHEMISTRY ORDERABL ES Performing Organization Address [facility] de Phone Number [facility] [place] [address] * Heparin (unfractionated) Level (05/08/2023 4:00 PM EDT) Pathologist [facility] UF Heparin 0.43 IU/mL [facility] [...] Lab Radha Hollins MD HEMATOLOGY ORDERAB LES [facility] [place] [address] * EKG 12 Lead (05/08/2023 3:51 PM EDT) Pathologist [facility] Ventricular rate 98 BPM MUSE SYSTEM Atrial Rate 98 BPM MUSE SYSTEM P-R Interval 150 ms MUSE SYSTEM QRS Duration 102 ms MUSE SYSTEM Q-T Interval 358 ms MUSE SYSTEM QTC Calculated (Bezet) 457 ms MUSE SYSTEM Calculated P Latham 38 degrees MUSE SYSTEM Calculated R Latham 48 degrees MUSE SYSTEM Calculated T Latham -112 degrees MUSE SYSTEM INTERPRETATION Sinus rhythm with frequent and consecutive Premature ventricular and fusion complexes Septal infarct , age undetermined ST & T wave abnormality, consider anterolateral ischemia Abnormal ECG When compared with ECG of 09-NOV-2022 11:17, T wave inversion now evident in Anterolateral leads Confirmed by MD Harshil, Enrique Bell ([id number]) on 05/10/2023 8:11:46 AM MUSE SYSTEM 05/08/2023 3:51 PM EDT 05/10/2023 8:11 AM EDT Radha Hollins MD ECG ORDERABLES Performing Organization Address City/[facility]/ZIP Co de Phone Number MUSE SYSTEM * (ABNORMAL) Differential, Automated (05/08/2023 11:38 AM EDT) [facility] Neutrophil % 71.3 % [facility] Neutrophil Absolute 2.91 1.70 - 6.10 x10(3)/mc L [facility] Lymph % 19.1 % [facility] Lymphocytes Abs 0.8(L) 0.9 - 3.2 x10(3)/mc L [facility] Monocyte % 9.0 % [facility] Monocyte Abs 0.4 0.3 - 0.9 x10(3)/mc L [facility] Eos % 0.2 % [facility] Eosinophils Abs 0.0 0.0 - 0.4 x10(3)/mc L [facility] Basophil % 0.2 % [facility] Baso Absolute 0.0 0.0 - 0.1 x10(3)/mc L [facility] Immature Gran % 0.20 % [facility] Comment: Immature granulocytes(IG's)percentage and absolute count will include metamyelocytes, myelocytes, and promyelocytes. Blood smears from CBCs yielding IG's will be scanned manually for concordance. If this scan disagrees with the automated IG or if promyelocytes are noted, a manual differential will be performed. Immature Gran Absolute 0.01 0.00 - 0.04 x10(3)/ L [facility] Blood 05/08/2023 11:3 8 AM EDT 05/08/2023 11:44 AM EDT Narrative Resulting Agency Comment Spec In Lab Lincoln Sal MD HEMATOLOGY ORDERA BLES Performing Organization Address City/State/[facility] Co de Phone Number [facility] [place] [address] * (ABNORMAL) Hemogram (05/08/2023 11:38 AM EDT) White Blood Cell 4.1 4.0 - 9.5 x10(3)/ L [facility] Red Blood Cell 3.05(L) 4.00 - 5.21 x10(6)/[facility] LABORATORY Hemoglobin 10.2(L) 11.7 - 15.5 g/dL [facility] Hematocrit 29.6(L) 35.7 - 45.8 % [facility] Mean Cell Volume 97.0(H) 82.6 - 94.4 fL [facility] Mean Cell Hemoglobin 33.4(H) 27.1 - 32.0 pg [facility] Mean Cell Hemoglobin Concentration 34.5 31.7 - 35.0 g/dL [facility] Platelet 136(L) 145 - 357 x10(3)/mc [facility] RDW Standard Deviation 44.3 37.0 - 46.0 fL [facility] RDW coefficient of variation 12.6 11.5 - 14.1 % [facility] Mean Platelet Volume 9.4 7.6 - 12.9 fL [facility] NRBC% auto 0.0 % [facility] NRBC Absolute 0.000 0.000 - 0.000 x10(3)/mc L [facility] Blood 05/08/2023 11:3 8 AM EDT 05/08/2023 11:44 AM EDT Narrative Resulting Agency Comment Spec In Lab Lincoln Sal MD HEMATOLOGY ORDERA BLES Performing Organization Address City/[facility]/ZIP Co de Phone Number [facility] [place] [address] * TSH (05/08/2023 11:38 AM EDT) Thyroid Stimulating Hormone 1.27 0.27 - 4.20 mcIU/mL [facility] Comment: Reference Interval (mcIU/mL): Females: ??First Trimester: 0.23-3.88 ??Second Trimester: 0.22-3.90 ??Third Trimester: 0.44-4.66 Blood 05/08/2023 11:3 8 AM EDT 05/08/2023 11:44 AM EDT Narrative Resulting Agency Comment Spec In Lab Enrique Chua MD CHEMISTRY ORDERABLES Performing Organization Address [facility] Co de Phone Number [facility] [place] [address] * (ABNORMAL) Phosphorus (05/08/2023 11:38 AM EDT) Phosphorus 4.7(H) 2.5 - 4.5 mg/dL [facility] Blood 05/08/2023 11:3 8 AM EDT 05/08/2023 11:44 AM EDT Narrative Resulting Agency Comment Spec In Lab Enrique Chua MD CHEMISTRY ORDERABLES Performing Organization Address [facility] Co de Phone Number [facility] [place] [address] * Magnesium (05/08/2023 11:38 AM EDT) Magnesium 0.76 0.69 - 1.07 mmol/L [facility] Blood 05/08/2023 11:3 8 AM EDT 05/08/2023 11:44 AM EDT Narrative Resulting Agency Comment Spec In Lab Enrique Chua MD CHEMISTRY ORDERABLES Performing Organization Address City/State/[facility] Co de Phone Number [facility] [place] [address] * (ABNORMAL) Basic Metabolic Panel (non-fasting) (05/08/2023 11:38 AM EDT) Glucose 97 65 - 199 mg/dL [facility] Comment:Diabetes: >=200 mg/d L plus symptoms Blood Urea Nitrogen 27(H) 8 - 18 mg/dL [facility] Creatinine 1.02 0.70 - 1.20 mg/dL [facility] Sodium 139 135 - 145 mmol/L [facility] Potassium 4.2 3.5 - 5.0 mmol/L [facility] Comment: Please note: ??Patients with WBC >100,000 may have falsely elevated Potassium levels. ??For accurate Potassium quantification in these patients send serum separator tube (gold top) for subsequent determinations. ??Contact the Clinical Chemistry Laboratory if there are any questions. Chloride 105 98 - 107 mmol/L [facility] Carbon Dioxide 20(L) 22 - 31 mmol/L [facility] Anion Gap 14 5 - 15 mmol/L [facility] Calcium 9.4 8.5 - 10.5 mg/dL [facility] Est Glomerular Filtration Rate 60 >=60 mL/min/1. 73 m?? [facility] In Lab Enrique Chua MD CHEMISTRY ORDERABLES [facility] [place] [address] * ECHO COMPLETE (05/08/2023 11:02 AM EDT) EF 25 HEARTLAB SYSTEM Anatomical Region Laterality Modality Cardiac Other 05/08/2023 10:0 3 AM EDT Narrative 05/08/2023 11:51 AM EDT ? Echocardiogram Report Name: PURNIMA THACKER ?Study Date: 05/08/2023 10:03 AMBP: 92/64 mmHg ? Patient Location: CVCC^CV29^A : 1955 ? Height: 155 cm ? Account: [id number] Age: 67 yrs ? Weight: 78 kg [...] worsening stenosis. Mitral regurgitation is similar. Procedure Complete-[id number]. Satisfactory quality. There is normal sinus rhythm. [...] CENTER^CV29^A : 1955 Height: 155 cm Account: [id number] Age: 67 yrs Weight: 78 kg Gender: [...] suggestsworsening stenosis. Mitral regurgitation is similar. Procedure Complete-[id number]. Satisfactory quality. There is normal sinus rhythm. [...] Lab Enrique Chua MD HEMATOLOGY ORDERABLE S [facility] [place] [address] documented in this encounter Visit Diagnoses Diagnosis S/P TAVR (transcatheter aortic valve replacement)- Primary Aortic valve stenosis, etiology of cardiac valve disease unspecified Heart failure with reduced ejection fraction due to heart valve disease Mild coronary artery disease by [facility] 11/09/2022 Mixed connective tissue disease [...] ejection fraction Mild coronary artery disease by [facility] 11/09/2022 Stenosis of prosthetic aortic [...] Routine documented in this encounter Care Teams Fish Salter Relationship Specialty Start Date End Date Magdalena Acosta MD [address] [place] [address] PCP - General Family Medicine 02/05/23 documented as of this encounter
--- OUTSIDE RECORDS SUMMARY | 2024-06-13 14:13 | XMS_ITS | Encounter Summary ---
Author Organization [facility] Address [facility] [place] [address] Care Team Providers Care Therapeutic Activities Services Worker Name Role Phone Ashley Quirogazac Shields APRN Primary Care Provider [phone] Encounter Details Date Type Department Care Team (Latest Contact Info) Description 06/22/2022 10:00 AM EST [place] [address] Raymond Loredo MD [facility] [place] [address] Raynaud's phenomenon without gangrene; Positive FRANCISCO (antinuclear [...] over radiocarpal or ulnocarpal joints. 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 SJC/TJC 0/0. Knees: Decreased flexion [...] EST Office Visit Hematology and Oncology at [place] [phone] Markel Borjas MD [facility] [address] [place] [address] 11/02/2024 12:00 PM EDT Appointment Pulmonology at [place] [address] 11/02/2024 1:00 PM EDT Office Visit Rheumatology at [place] [phone] Magdalena Peralta MD [facility] [place] [address] 03/01/2025 4:15 PM EDT Office Visit Dermatology at [address] [place] [address] Marek Bonilla MD [address] [place] [address] RD, [address] DERMATOLOGY [place], [place] [id number] documented as of this encounter Visit Diagnoses Diagnosis Raynaud's phenomenon without gangrene Positive FRANCISCO (antinuclear antibody) Other and unspecified nonspecific immunological findings Primary osteoarthritis involving multiple joints Cervical disc disorder at C6-C7 level with radiculopathy documented in this encounter Care Teams Therapeutic Activities Services Worker Relationship Specialty Start Date End Date Deborah Quiroga APRN PCP - General Family Medicine 03/24/16 02/04/23 documented as of this encounter
--- OUTSIDE RECORDS SUMMARY | 2024-06-13 14:13 | XMS_ITS | Encounter Summary ---
Author Organization [facility]ly [facility] [place] [address] Care Team Providers Care Joint Finisher Name Role Phone Magdalena Acosta MD Primary Care Provider [phone] Reason for Referral * Consultation (Routine) - Closed Specialty Diagnoses / Procedures Referred By Contac t Referred To Contact Rheumatology Diagnoses Weakness Kyra Haas MD [facility] [address] [place] [address] [facility] [address] [place] [id number] Referral ID Status Reason Start Date Expiration Date V isits Requested Visits Authorized [id number] Closed Consult, Test & Treat PCP Updated and/or Approved 02/25/2023 02/25/2024 6 6 Encounter Details Date Type Department Care Team (Late st Contact Info) Description 02/25/2023 Transcribe Orders eDH Incoming Referrals [phone] Magdalena Acosta MD [address] [place] [address] Weakness Social History Tobacco Use [...] EST Office Visit Hematology and Oncology at [place] [phone] Markel Borjas MD [facility] [address] [place] [address] 11/02/2024 12:00 PM EDT [place] [address] 11/02/2024 1:00 PM EDT [place] [address] Magdalena Peralta MD [facility] [place] [address] 03/01/2025 4:15 PM EDT Office Visit Dermatology at [place] [address] [place] [phone] Marek Bonilla MD [address] [facility] [place] [address] Scheduled Referrals Name Type Priority Associated Diagnoses Order Schedule Referral to Rheumatology Outpatient Referral Routine Weakness Ordered: 02/25/2023 documented as of this encounter Visit Diagnoses Diagnosis Weakness Other malaise and fatigue documented in this encounter Care Teams Joint Finisher Relationship Specialty Start Date End Date Magdalena Acosta MD [address] [place] [address] PCP - General Family Medicine 02/05/23 documented as of this encounter
--- OUTSIDE RECORDS SUMMARY | 2024-06-13 14:13 | XMS_ITS | Encounter Summary ---
Author Organization [facility]ly [facility] [place] [address] Care Team Providers Care Apron Man Name Role Phone Magdalena Acosta MD Primary Care Provider [phone] Encounter Details Date Type Department Care Team [...] Visit Hematology and Oncology at [place] [phone] Markel Borjas MD [facility] [address] [place] [address] 11/02/2024 12:00 PM EDT [place] [address] 11/02/2024 1:00 PM EDT Office [place] [address] Magdalena Peralta MD [facility] [place] [address] 03/01/2025 4:15 PM EDT Office Visit Dermatology at [place] [address] [place] [phone] Marek Bonilla MD [address], [address] [place] [address] documented as of this encounter Visit Diagnoses Not on filedocumented in this encounter Care Teams Apron Man Relationship Specialty Start Date End Date Magdalena Acosta MD [address] [place] [address] PCP - General Family Medicine 02/05/23 documented as of this encounter
--- OUTSIDE RECORDS SUMMARY | 2024-06-13 14:13 | XMS_ITS | Encounter Summary ---
Author Organization [facility] [place] [address] Care Team Providers Care Direct Support Specialist Name Role Phone Magdalena Acosta MD Primary Care Provider [phone] Encounter Details Date Type Department Care Team (Latest Contact Info) Description 03/18/2023 2:30 PM EDT Laboratory Appointment Lab [place], [place] [address] Positive FRANCISCO (antinuclear antibody) Social [...] EST Office Visit [place] [address] Markel Borjas MD [facility] [address] HEMATOLOGY [place] [address] 11/02/2024 12:00 PM EDT [place] [address] 11/02/2024 1:00 PM EDT [place] [address] Magdalena Peralta MD [facility] [place] [address] 03/01/2025 4:15 PM EDT Office Visit Dermatology at [place] [address] [place] [address] Marek Bonilla MD [address], [place] [address] documented as of this encounter Procedures Procedure [...] 2:14 PM EDT) Neutrophil % 71.2 % [facility] Neutrophil Absolute 2.26 1.70 - 6.10 x10(3)/mc L [facility] Lymph % 18.2 % [facility] Lymphocytes Abs 0.6(L) 0.9 - 3.2 x10(3)/mc L [facility] Monocyte % 9.7 % [facility] Monocyte Abs 0.3 0.3 - 0.9 x10(3)/ L [facility] Eos % 0.3 % [facility] Eosinophils Abs 0.0 0.0 - 0.4 x10(3)/mc L [facility] Basophil % 0.6 % [facility] Baso Absolute 0.0 0.0 - 0.1 x10(3)/mc L [facility] Immature Gran % 0.00 % [facility] Comment: Immature granulocytes(IG's)percentage and absolute count will include metamyelocytes, myelocytes, and promyelocytes. Blood smears from CBCs yielding IG's will be scanned manually for concordance. If this scan disagrees with the automated IG or if promyelocytes are noted, a manual differential will be performed. Immature Gran Absolute 0.00 0.00 - 0.04 x10(3)/mc L [facility] Blood 03/18/2023 2:14 PM EDT 03/18/2023 2:24 PM EDT Narrative Resulting Agency Comment Spec In Lab Magdalena Peralta MD HEMATOLOGY ORDERABLE S [facility] [place] [address] * (ABNORMAL) Hemogram (03/18/2023 2:14 PM EDT) White Blood Cell 3.2(L) 4.0 - 9.5 x10(3)/mc L [facility] Red Blood Cell 3.44(L) 4.00 - 5.21 x10(6)/mc L [facility] Hemoglobin 11.1(L) 11.7 - 15.5 g/dL [facility] Hematocrit 32.9(L) 35.7 - 45.8 % [facility] Mean Cell Volume 95.6(H) 82.6 - 94.4 fL [facility] Mean Cell Hemoglobin 32.3(H) 27.1 - 32.0 pg [facility] Mean Cell Hemoglobin Concentration 33.7 31.7 - 35.0 g/dL [facility] Platelet 144(L) 145 - 357 x10(3)/mc L [facility] RDW Standard Deviation 42.6 37.0 - 46.0 fL [facility] RDW coefficient of variation 12.3 11.5 - 14.1 % [facility] Mean Platelet Volume 9.4 7.6 - 12.9 fL [facility] NRBC% auto 0.0 % [facility] NRBC Absolute 0.000 0.000 - 0.000 x10(3)/mc L [facility] Blood 03/18/2023 2:14 PM EDT 03/18/2023 2:24 PM EDT Narrative Resulting Agency Comment Spec In Lab Magdalena Peralta MD HEMATOLOGY ORDERABLE S Performing Organization Address City/[facility] Co de Phone Number [facility] [place] [address] * (ABNORMAL) Sedimentation rate (03/18/2023 2:14 PM EDT) Sedimentation Rate Automated 68(H) 2 - 39 mm/hr [facility] Comment: Effective July 12, 2019 new capillary photometric technology has resulted in a change in reference ranges. It is recommended that each ESR result be reviewed with its own age appropriate reference range. Blood 03/18/2023 2:14 PM EDT 03/18/2023 2:24 PM EDT Narrative Resulting Agency Comment Spec In Lab Kia Viramontes DO HEMATOLOGY ORDERAB LES Performing Organization Address City/[facility]/ZIP Co de Phone Number [facility] [place] [address] * CRP, acute inflammation (03/18/2023 2:14 PM EDT) C-Reactive Protein 3.0 <=4.9 mg/L [facility] Blood 03/18/2023 2:14 PM EDT 03/18/2023 2:24 PM EDT Narrative Resulting Agency Comment Spec In Lab Kia D Wander DO CHEMISTRY ORDERABL ES Performing Organization Address City/[facility]/ZIP Co de Phone Number [facility] [place] [address] * C3 Complement (03/18/2023 2:14 PM EDT) Complement C3 142 90 - 180 mg/dL [facility] Blood 03/18/2023 2:14 PM EDT 03/18/2023 2:24 PM EDT Narrative Resulting Agency Comment Spec In Lab Kia D Wander DO CHEMISTRY ORDERABL ES Performing Organization Address City/[facility]/ZIP Co de Phone Number [facility] [place] [address] * C4 Complement (03/18/2023 2:14 PM EDT) Complement C4 30 10 - 40 mg/dL [facility] Blood 03/18/2023 2:14 PM EDT 03/18/2023 2:24 PM EDT Narrative Resulting Agency Comment Spec In Lab Kia D Wander DO CHEMISTRY ORDERABL ES Performing Organization Address City/[facility]/ZIP Co de Phone Number [facility] [place] [address] * CK (03/18/2023 2:14 PM EDT) Creatine Kinase 38 0 - 160 unit/L [facility] Blood 03/18/2023 2:14 PM EDT 03/18/2023 2:24 PM EDT Narrative Resulting Agency Comment Spec In Lab Kia Viramontes DO CHEMISTRY ORDERABL ES Performing Organization Address City/[facility]/ZIP Co de Phone Number [facility] [place] [address] * DNA Antibody (Double-Stranded) (03/18/2023 2:14 PM EDT) dsDNA Ab <0.6 <=15.0 IU/mL [facility] Comment: <10 negative 10-15 equivocal >15 positive This dsDNA antibody result was generated using a fluoroenzyme immunoassay on the Coty 250 analyzer. This quantitative test is designed to detect IgG antibodies directed against double stranded DNA in human serum. The presence of antibodies that recognize dsDNA is a highly specific marker for systemic lupus erythematosus. Please note that as of 05/26/2022 that this testing is performed by the Special Chemistry Laboratory at [facility]. This change in testing location is associated with a change is testing method and reference intervals. Please review the results of this test in association with the posted reference intervals. Blood 03/18/2023 2:14 PM EDT 03/19/2023 7:19 AM EDT Narrative Resulting Agency Comment Spec In Lab Kia Viramontes DO LAB SEND OUT ORDER JODIE Performing Organization Address [facility] Co de Phone Number [facility] [place] [address] * (ABNORMAL) FRANCISCO Ab by IFA (03/18/2023 2:14 PM EDT) FRANCISCO Ab Screen Test ? Result ?Flag ??Unit ??RefValue Antinuclear Ab, HEp-2 ?Positive 1:2560 ??@ ?<1:80 (Negative) ??Substrate, S ? ADDITIONAL INFORMATION --------- ?Method: Immunofluorescence using HEp-2 cellular substrate. ??FRANCISCO Titer: ? 1:2560 ??FRANCISCO Pattern: ? Speckled ?Test Performed by: ?[facility] ?[address] [place] [address] ?Threshing Machine Operator: Raymond Chaudhry M.D. Ph.D.; CLIA# [id number] ([id number]) [facility] Blood 03/18/2023 2:14 PM EDT 03/18/2023 3:02 PM EDT Narrative Resulting Agency Comment Spec In Lab Kia Viramontes DO CHEMISTRY ORDERABL ES [facility] [place] [address] * Comprehensive metabolic panel (non-fasting) (03/18/2023 2:14 PM EDT) Glucose 93 65 - 199 mg/dL [facility] Comment:Diabetes: >=200 mg/d L plus symptoms Blood Urea Nitrogen 18 8 - 18 mg/dL [facility] Creatinine 0.99 0.70 - 1.20 mg/dL [facility] Sodium 141 135 - 145 mmol/L [facility] Potassium 4.5 3.5 - 5.0 mmol/L [facility] Comment: Please note: ??Patients with WBC >100,000 may have falsely elevated Potassium levels. ??For accurate Potassium quantification in these patients send serum separator tube (gold top) for subsequent determinations. ??Contact the Clinical Chemistry Laboratory if there are any questions. Chloride 106 98 - 107 mmol/L [facility] Carbon Dioxide 24 22 - 31 mmol/L [facility] Anion Gap 11 5 - 15 mmol/L [facility] Calcium 10.0 8.5 - 10.5 mg/dL [facility] Protein, Total 7.3 6.1 - 8.0 g/dL [facility] Albumin 4.3 3.2 - 5.2 g/dL [facility] Aspartate Aminotransferase 26 0 - 30 unit/L [facility] Alanine Aminotransferase 11 0 - 30 unit/L [facility] Alkaline Phosphatase 91 35 - 105 unit/L [facility] Bilirubin, Total 0.4 0.2 - 1.3 mg/dL [facility] Est Glomerular Filtration Rate 62 >=60 mL/min/1. 73 m?? [facility] Comment: This patient's estimated GFR [...] Address City/State/[facility] Co de Phone Number [facility] [place] [address] documented in this encounter Visit Diagnoses Diagnosis Positive FRANCISCO (antinuclear antibody) Other and unspecified nonspecific immunological findings documented in this encounter Care Teams Direct Support Specialist Relationship Specialty Start Date End Date Magdalena Acosta MD [address] [place] [address] PCP - General Family Medicine 02/05/23 documented as of this encounter
--- OUTSIDE RECORDS SUMMARY | 2024-06-13 14:13 | XMS_ITS | Encounter Summary ---
Author Organization [facility] [place] [address] Care Team Providers Care Aquatics Instructor Name Role Phone Ashley Quirogazac Shields APRN Primary Care Provider [phone] Encounter Details Date Type Department Care Team [...] EST Office Visit Hematology and Oncology at [place] [phone] Markel Borjas MD [facility] [address] HEMATOLOGY [place] [address] 11/02/2024 12:00 PM EDT [place] [address] 11/02/2024 1:00 PM EDT [place] [address] Magdalena Peralta MD [facility] [place] [address] 03/01/2025 4:15 PM EDT Office Visit Dermatology at [place] [address] [place] [phone] Marek Bonilla MD [address] [place] [address] documented as of this encounter Visit Diagnoses Not on filedocumented in this encounter Care Teams Aquatics Instructor Relationship Specialty Start Date End Date Deborah Quiroga APRN PCP - General Family Medicine 03/24/16 02/04/23 documented as of this encounter
--- OUTSIDE RECORDS SUMMARY | 2024-06-13 14:13 | XMS_ITS | Encounter Summary ---
[place] [address] Care Team Providers Care Skeiner Name Role Phone Magdalena Acosta MD Primary Care Provider [phone] Reason for Visit * Reason Comments Skin Lesion Encounter Details Date Type Department Care Team (Late st Contact Info) Description 04/20/2023 10:00 AM EDT Office Visit Dermatology at [address] [phone] Marek Bonilla MD [address] [facility] [place] [address] Seborrheic keratosis Social History Tobacco Use Types [...] cutaneous and ocular 3. Previously told by parachute officer that she had corneal tears from [...] Visit Hematology and Oncology at [place] [address] Markel Borjas MD [facility] [address] HEMATOLOGY [place] [address] 11/02/2024 12:00 PM EDT Appointment Pulmonology at [place] [address] 11/02/2024 1:00 PM EDT Office Visit Rheumatology at [place] [address] Magdalena Peralta MD [facility] [place] [address] 03/01/2025 4:15 PM EDT Office Visit Dermatology at [address] [place] [address] Marek Bonilla MD [address] [facility] [place] [address] documented as of this encounter Visit Diagnoses Diagnosis Seborrheic keratosis Other seborrheic keratosis documented in this encounter Care Teams Skeiner Relationship Specialty Start Date End Date Magdalena Acosta MD [address] [place] [address] PCP - General Family Medicine 02/05/23 documented as of this encounter
--- OUTSIDE RECORDS SUMMARY | 2024-06-13 14:13 | XMS_ITS | Encounter Summary ---
Author Organization [facility] [place] [address] Care Team Providers Care Vaccine Specialist Name Role Phone Deborah Quiroga APRN Primary Care Provider [phone] Reason for Referral * Consultation (Routine) - Closed Specialty Diagnoses / Procedures Referred By Crispin maxwell Referred To Contact Neurology Diagnoses Polyneuropathy Deborah Quiroga APRN [address] [facility] [address] [place] [address] [facility] [address] [place] [phone] Referral ID Status Reason Start Date Expiration Date V isits Requested Visits Authorized [id number] Closed Consult, Test & Treat 10/29/2022 10/29/2023 1 1 Encounter Details Date Type Department Care Team (Latest Contact Info) Description 10/29/2022 Transcribe Orders eDH Incoming Referrals [phone] Deborah Quiroga APRN [address] [facility] [address] [place] [address] Polyneuropathy (Primary Dx) Social History [...] EST Office Visit [place] [address] Markel Borjas MD [facility] [address] [place] [address] 11/02/2024 12:00 PM EDT [place] [address] 11/02/2024 1:00 PM EDT [place] [phone] Magdalena Peralta MD [facility] [place] [address] 03/01/2025 4:15 PM EDT Office Visit Dermatology at [place] [address] [facility] [place] [phone] Marek Bonilla MD [address] [facility], [place] [address] Scheduled Referrals Name Type Priority Associated Diagnoses Orde r Schedule Referral to Neurology Outpatient Referral Routine Polyneuropathy Ordered: 10/29/2022 documented as of this encounter Visit Diagnoses Diagnosis Polyneuropathy- Primary Unspecified hereditary and idiopathic peripheral neuropathy documented in this encounter Care Teams Vaccine Specialist Relationship Specialty Start Date End Date Deborah uQiroga APRN PCP - General Family Medicine 03/24/16 02/04/23 documented as of this encounter
--- OUTSIDE RECORDS SUMMARY | 2024-06-13 14:13 | XMS_ITS | Encounter Summary ---
Author Organization [facility] [address] Care Team Providers Care Financial Secretary Name Role Phone Magdalena Acosta MD Primary Care Provider [phone] Encounter Details Date Type Department Care Team (Late st Contact Info) Description 02/17/2023 2:00 PM EDT Office [place] [phone] Alirio Esparza MD Aortic valve stenosis, etiology [...] EST Office Visit Hematology and Oncology at [place] [phone] Markel Borjas MD [facility] [place] [address] 11/02/2024 12:00 PM EDT Appointment Pulmonology at [place] [address] 11/02/2024 1:00 PM EDT Office Visit Rheumatology at [place] [phone] Magdalena Peralta MD [facility] [place] [address] 03/01/2025 4:15 PM EDT Office Visit Dermatology at [address] [place] [phone] Marek Bonilla MD [address] [facility] [address], [place] [address] documented as of this encounter Visit Diagnoses Diagnosis Aortic valve stenosis, etiology of cardiac valve disease unspecified documented in this encounter Care Teams Financial Secretary Relationship Specialty Start Date End Date Magdalena Acosta MD [address] [place] [address] PCP - General Family Medicine 02/05/23 documented as of this encounter
--- OUTSIDE RECORDS SUMMARY | 2024-06-13 14:13 | XMS_ITS | Encounter Summary ---
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 documented in this encounter Plan of Treatment Upcoming Encounters Date Type Department Care Team (Late st Contact Info) Description 06/23/2024 2:00 PM EST Office Visit Hematology and Oncology at [place] [phone] Markel Borjas MD [facility] [address] HEMATOLOGY [place] [address] 11/02/2024 12:00 PM EDT [place] [address] 11/02/2024 1:00 PM EDT Office Visit Rheumatology at [place] [address] Magdalena Peralta MD [facility] [place] [address] 03/01/2025 4:15 PM EDT Office Visit Dermatology at [address] [address] Marek Bonilla MD [address] [facility], [place] [address] documented as of this encounter Visit Diagnoses Not on filedocumented in this encounter Care Teams Section Leader Screen Printing Relationship Specialty Start Date End Date Magdalena Acosta MD [address] [place] [address] PCP - General Family Medicine 02/05/23 documented as of this encounter
--- OUTSIDE RECORDS SUMMARY | 2024-06-13 14:13 | XMS_ITS | Encounter Summary ---
Author Organization [facility] [place] [address] Care Team Providers Care Oceanology Teacher Name Role Phone Deborah Quiroga APRN Primary Care Provider Encounter Details Date Type Department Care Team (Late st Contact Info) Description 06/17/2022 Ancillary Procedure Radiology Library at [place] [address] Deborah Quiroga APRN [address] [place] [phone] Social History Tobacco Use Types Packs/Day [...] EST Office Visit Hematology [place] [phone] Markel Borjas MD [facility] HEMATOLOGY [place] [address] 11/02/2024 12:00 PM EDT Appointment [place] [phone] 11/02/2024 1:00 PM EDT Office Visit [place] [address] Magdalena Peralta MD [facility] [place] [address] 03/01/2025 4:15 PM EDT Office Visit Dermatology at [place] [address] [facility] [place] [phone] Marek Bonilla MD [address] [facility] [address], [place] [address] documented as of this encounter Procedures Procedure Name Priority Date/Time Associated Diagnosis Comments FILM LIBRARY STORAGE ONLY MR SPINE Routine 06/17/2022 12:00 AM EST documented in this encounter Results * Film Library- Storage Only MR Spine (06/17/2022 12:00 AM EST) Narrative [facility] - 06/18/2022 11:00 AM EST This exam is auto-finalizing. It's purpose is for storage only. Deborah Quiroga APRN IMGerman FILM LIBRARY OR DERABLES Performing Organization Address City/State/[facility] Co de Phone Number [place], [place] documented in this encounter Visit Diagnoses Not on filedocumented in this encounter Care Teams Oceanology Teacher Relationship Specialty Start Date End Date Deborah Quiroga APRN PCP - General Family Medicine 03/24/16 02/04/23 documented as of this encounter
--- OUTSIDE RECORDS SUMMARY | 2024-06-13 14:13 | XMS_ITS | Encounter Summary ---
Author Organization [facility] Address [facility] [place] [address] Care Team Providers Care Four Roll Calender Operator Name Role Phone Ashley Quirogan Sylvia ANURAG Primary Care Provider [phone] Encounter Details Date Type Department Care Team (Late st Contact Info) Description 01/14/2023 Refill Dermatology at [address] [address] Lupe Connor RN Social History [...] She would like the medication called into [facility]. Discussed with Dr. [...] EST Office Visit Hematology and Oncology at [place] [phone] Markel Borjas MD [facility] DR [place] [address] 11/02/2024 12:00 PM EDT Appointment [place] [address] 11/02/2024 1:00 PM EDT Office [place] [address] Magdalena Peralta MD [facility] [place] [address] 03/01/2025 4:15 PM EDT Office Visit Dermatology at [place] [address] [facility] [place] [address] Marek Bonilla MD [address] [facility] [address], QU[address] A DERMATOLOGY [place], [place] [phone] documented as of this encounter Visit Diagnoses Not on filedocumented in this encounter Care Teams Four Roll Calender Operator Relationship Specialty Start Date End Date Deborah Quiroga APRN PCP - General Family Medicine 03/24/16 02/04/23 documented as of this encounter
--- OUTSIDE RECORDS SUMMARY | 2024-06-13 14:13 | XMS_ITS | Encounter Summary ---
Author Organization Counts Include [facility] Address [facility] [place] [address] Care Team Providers Care Corporate Training Manager Name Role Phone Junaid Deborah Shields APRN Primary Care Provider [phone] Reason for Referral * Consultation (Routine) - Closed Specialty Diagnoses / Procedures Referred By Contac t Referred To Contact Neurology Diagnoses Neck pain Popeye Rogers MD [facility] [address] Kyra Haas MD [facility] [address] [address] Referral ID Status Reason Start Date Expiration Date V isits Requested Visits Authorized [id number] Closed Consult, Test & Treat 06/29/2022 06/29/2023 1 1 Reason for Visit * Reason Comments Neck Pain Weak in both arms, p ain and tingling in arms and hands Encounter Details Date Type Department Care Team (Late st Contact Info) Description 06/29/2022 10:20 AM EST Office Visit [place] [address] Popeye Rogers MD [facility] [place] [address] Neck pain Social History Tobacco Use Types [...] have EMG and nerve conduction studies in [place] that showed carpal tunnel syndrome. I do not have a copy of that report. documented in this encounter Plan of Treatment Upcoming Encounters Date Type Department Care Team (Late st Contact Info) Description 06/23/2024 2:00 PM EST Office Visit Hematology and Oncology at [place] [phone] Markel Borjas MD [facility] DR HEMATOLOGY [place] [address] 11/02/2024 12:00 PM EDT Appointment Pulmonology at [place] [address] 11/02/2024 1:00 PM EDT Office Visit Rheumatology at [place] [phone] Magdalena Peralta MD [facility] DR [place] [address] 03/01/2025 4:15 PM EDT Office Visit Dermatology at [place] [address] [facility] [place] [address] Marek Bonilla MD [address] [facility], [place] [address] Scheduled Referrals Name Type Priority Associated Diagnoses Orde r Schedule Referral to Neurology Outpatient Referral Routine Neck pain Ordered: 06/29/2022 documented as of this encounter Visit Diagnoses Diagnosis Neck pain Cervicalgia documented in this encounter Care Teams Corporate Training Manager Relationship Specialty Start Date End Date Deborah Quiroga, FLAT LOCK MACHINE OPERATOR PCP - General Family Medicine 03/24/16 02/04/23 documented as of this encounter
--- OUTSIDE RECORDS SUMMARY | 2024-06-13 14:13 | XMS_ITS | Encounter Summary ---
Author Organization [facility] Address [facility] [place] [address] Care Team Providers Care Computer Recycling Worker Name Role Phone Deborah Quiroga APRN Primary Care Provider [phone] Reason for Visit * Consultation (Routine) - Closed Specialty Diagnoses / Procedures Referred By Contkrystle t Referred To Contact Rheumatology Diagnoses Positive FRANCISCO (antinuclear antibody) Arthralgia, unspecified joint Sandy Wu APRN [address] [place] [address] [facility] Rheumatology [address] [place] [address] Referral ID Status Reason Start Date Expiration Date V isits Requested Visits Authorized [id number] Closed Consult, Test & Treat PCP Updated and/or Approved 01/01/2022 01/01/2023 6 6 Encounter Details Date Type Department Care Team (Latest Contact Info) Description 01/20/2022 10:00 AM EDT Office [place] [address] Raymond Loredo MD [facility] [place] [address] Rosacea; Raynaud's phenomenon without gangrene; [...] over radiocarpal or ulnocarpal joints. Hands: Normal entertainment musician and claw. SJC/TJC 0/0. Hips: Full motion, [...] be done locally or here at [facility] that the current time is not particularly interested it seems Raymond Loredo MD documented in this encounter Plan of Treatment Upcoming Encounters Date Type Department Care Team (Late st Contact Info) Description 06/23/2024 2:00 PM EST Office Visit Hematology and Oncology at [place] [phone] Markel Borjas MD [facility] DR [place] [address] 11/02/2024 12:00 PM EDT Appointment Pulmonology at [place] [address] 11/02/2024 1:00 PM EDT Office Visit Rheumatology at [place] [address] Magdalena Peralta MD [facility] [place] [address] 03/01/2025 4:15 PM EDT Office Visit Dermatology at [place] [address] [place] [address] Marek Bonilla MD [address] [facility], [place] [address] Scheduled Referrals Name Type Priority Associated Diagnoses [...] syndrome documented in this encounter Care Teams Computer Recycling Worker Relationship Specialty Start Date End Date Deborah Quiroga APRN PCP - General Family Medicine 03/24/16 02/04/23 documented as of this encounter
--- OUTSIDE RECORDS SUMMARY | 2024-06-13 14:13 | XMS_ITS | Encounter Summary ---
Author Organization [facility]rika [facility] [place] [address] Care Team Providers Care Science And Operations Officer Name Role Phone Ashley Quirogazac Shields APRN Primary Care Provider [phone] Encounter Details Date Type Department Care Team [...] Visit Hematology and Oncology at [place] [phone] Markel Borjas MD [facility] [address] HEMATOLOGY [place] [address] 11/02/2024 12:00 PM EDT Appointment [place] [address] 11/02/2024 1:00 PM EDT Office [place] [address] Magdalena Peralta MD [facility] [place] [address] 03/01/2025 4:15 PM EDT Office Visit Dermatology at [place] [address] [facility] [place] [phone] Marek Bonilla MD [address] [facility] [address], [address] [place] [address] documented as of this encounter Visit Diagnoses Not on filedocumented in this encounter Care Teams Science And Operations Officer Relationship Specialty Start Date End Date Deborah Quiroga APRN PCP - General Family Medicine 03/24/16 02/04/23 documented as of this encounter
--- OUTSIDE RECORDS SUMMARY | 2024-06-13 14:13 | XMS_ITS | Encounter Summary ---
Author Organization [facility] [place] [address] Care Team Providers Care Salon Supervisor Name Role Phone Magdalena Acosta MD [...] EST Office Visit Hematology and Oncology at [place] [phone] Markel Borjas MD [facility] DR HEMATOLOGY [place] [address] 11/02/2024 12:00 PM EDT Appointment [place] [address] 11/02/2024 1:00 PM EDT Office [place] [address] Magdalena Peralta MD [facility] [place] [address] 03/01/2025 4:15 PM EDT Office Visit Dermatology at [place] [address] [facility] [place] [address] Marek Bonilla MD [address] [facility] [address], [place] [address] documented as of this encounter Visit Diagnoses Not on filedocumented in this encounter Care Teams Salon Supervisor Relationship Specialty Start Date End Date Magdalena Acosta MD [address] [place] [address] PCP - General Family Medicine 02/05/23 documented as of this encounter
--- OUTSIDE RECORDS SUMMARY | 2024-06-13 14:13 | XMS_ITS | Encounter Summary ---
Author Organization [facility] Address [facility] [place] [address] Care Team Providers Care Aircraft Structural Fitter Name Role Phone Magdalena Acosta MD Primary Care Provider [phone] Encounter Details Date Type Department Care Team (Late st Contact Info) Description 04/27/2023 3:00 PM EDT [place] [address] Magdalena Peralta MD [facility] [place] [address] Mixed connective tissue disease Social History Tobacco [...] 1:5120 speckled; VIC negative; Myositis panel with TAX EXPERT ab 149.1 (positive); Anti U1RNP IgG 119; [...] Visit [place] [address] Markel Borjas MD [facility] DR [place] [address] 11/02/2024 12:00 PM EDT [place] [address] 11/02/2024 1:00 PM EDT Office [place] [address] Magdalena Peralta MD [facility] [place] [address] 03/01/2025 4:15 PM EDT Office Visit Dermatology at [place] [address] [facility] [place] [address] Marek Bonilla MD [address] [facility] [facility] [address], [place] [address] documented as of this encounter Visit Diagnoses Diagnosis Mixed connective tissue disease Other specified diffuse disease of connective tissue documented in this encounter Care Teams Aircraft Structural Fitter Relationship Specialty Start Date End Date Magdalena Acosta MD [address] [place] [address] PCP - General Family Medicine 02/05/23 documented as of this encounter
--- OUTSIDE RECORDS SUMMARY | 2024-06-13 14:13 | XMS_ITS | Encounter Summary ---
Author Organization [facility] [place] [address] Care Team Providers Care Business Analyst Name Role Phone Deborah Quiroga APRN Primary Care Provider Encounter Details Date Type Department Care Team (Late st Contact Info) Description 11/09/2022 11:30 AM EDT - 11/09/2022 12:30 PM EDT [place] [address] Nitesh Escobedo MD [facility] [place] [address] CARDIAC CATHETERIZATION Social History Tobacco Use Types [...] the [facility] Nephrologist . Issues afterhours and on weekends will [...] Pre-Procedure H&P Update: Cardiac Catheterization Purnima Thacker [id number] Chief Complaint: BONILLA HPI: Purnima Thacker [...] [facility] Pager: [phone] documented in this encounter Plan of Treatment Upcoming Encounters Date Type Department Care Team (Late st Contact Info) Description 06/23/2024 2:00 PM EST Office Visit Hematology [place] [address] Markel Borjas MD [facility] DR [place] [address] 11/02/2024 12:00 PM EDT Appointment [place] [address] 11/02/2024 1:00 PM EDT Office [place] [address] Magdalena Peralta MD [facility] [place] [address] 03/01/2025 4:15 PM EDT Office Visit Dermatology at [place] [address] [facility] [place] [address] Marek Bonilla MD [address], [place] [address] documented as of this encounter Procedures Procedure Name Priority Date/Time Associated Diagnosis Comments CARDIAC CATHETERIZATION Routine 11/10/19 1:05 PM EDT Aortic valve stenosis, etiology of cardiac valve disease unspecified Cath [facility] Left Heart Cath & Arts W/Inj & Angio Img S&I ([id number]) 11/09/2022 11:51 AM EDT Aortic valve stenosis, etiology of cardiac valve disease unspecified EKG 12-LEAD Routine 11/09/2022 11:17 AM EDT Aortic valve stenosis, etiology of cardiac valve disease unspecified documented in this encounter Results * CARDIAC CATHETERIZATION (11/09/2022 1:05 PM EDT) Anatomical Region Laterality Modality Other Narrative 11/09/2022 2:01 PM EDT ?[facility] ? Cardiac Catheterization/Intervention Report ? Patient Name: Kirstie, Purnima M. ? Procedure Date: 11/09/2022 ? A #: [id number] ? Primary Physician: Nitesh Escobedo ? Case #: [id number] ? File Name: [id number] ? Catheterization Order Number: [id number] ? [facility] ? Final Report [place], [place] ? Patient Name: ? Purnima M. Kirstie ? ID#: ?[id number] ? : ?1955 ? Procedure Date: ? [...] was designated as ASA Class III. The [facility] clinical frailty scale ?is 4: Vulnerable. [...] (Bezet) 457 ms MUSE SYSTEM Calculated P [place] 44 degrees MUSE SYSTEM Calculated R [place] 33 degrees MUSE SYSTEM Calculated T [place] 30 degrees MUSE SYSTEM INTERPRETATION Sinus rhythm Occasional Premature ventricular complexes Otherwise normal ECG When compared with ECG of 21-SEP-2016 12:26, Premature ventricular complexes are now Present OK interval has decreased Nonspecific T wave abnormality has replaced inverted T waves in Inferior leads I personally reviewed the tracing and edited the fellows interpretation Confirmed by fellow MD Anitha, Carissa ([id number]) on 11/09/2022 6:17:28 PM Confirmed by Elsa [...] MD) documented in this encounter Care Teams Business Analyst Relationship Specialty Start Date End Date Deborah Quiroga, ASSISTED LIVING HOME DIRECTOR PCP - General Family Medicine 03/24/16 02/04/23 documented as of this encounter
--- OUTSIDE RECORDS SUMMARY | 2024-06-13 14:13 | XMS_ITS | Encounter Summary ---
[place] [address] Care Team Providers Care Cyber Crime Investigator Name Role Phone Magdalena Acosta MD Primary Care Provider [phone] Reason for Visit * Reason Comments Annual Exam Encounter Details Date Type Department Care Team (Late st Contact Info) Description 02/05/2023 2:30 PM EDT Office Visit Dermatology at [address] [phone] Marek Bonilla MD [address] [facility] TODD A DERMATOLOGY [place], [place] [phone] Rosacea; Ocular rosacea; Nevus Social History Tobacco [...] cutaneous and ocular 2. Previously told by hogshead cooper that she had corneal tears from her [...] EST Office Visit H[place] [address] Markel Borjas MD [facility] DR HEMATOLOGY [place] [address] 11/02/2024 12:00 PM EDT Appoint[place] [address] 11/02/2024 1:00 PM EDT Office [place] [address] Magdalena Peralta MD [facility] [place] [address] 03/01/2025 4:15 PM EDT Office Visit Dermatology at [address] [phone] Marek Bonilla MD [address] [facility] [address], TODD A DERMATOLOGY [place], [place] [address] documented as of this encounter Visit Diagnoses Diagnosis Rosacea Ocular rosacea Rosacea Nevus Benign neoplasm of skin, site unspecified documented in this encounter Care Teams Cyber Crime Investigator Relationship Specialty Start Date End Date Magdalena Acosta MD [address] [place] [address] PCP - General Family Medicine 02/05/23 documented as of this encounter
--- OUTSIDE RECORDS SUMMARY | 2024-06-13 14:13 | XMS_ITS | Encounter Summary ---
Author Organization [facility] E[facility] [place] [address] Care Team Providers Care Bottle Packer Name Role Phone Magdalena Acosta MD Primary Care Provider [phone] Encounter Details Date Type Department Care Team [...] EST Office Visit Hematology and Oncology at [place] [phone] Markel Borjas MD [facility] [address] [place] [address] 11/02/2024 12:00 PM EDT Appointment [place] [address] 11/02/2024 1:00 PM EDT Office [place] [address] Magdalena Peralta MD [facility] [place] [address] 03/01/2025 4:15 PM EDT Office Visit Dermatology at [place] [address] [place] [address] Marek Bonilla MD [address] [place] [address] documented as of this encounter Visit Diagnoses Not on filedocumented in this encounter Care Teams Bottle Packer Relationship Specialty Start Date End Date Magdalena Acosta MD [address] [place] [address] PCP - General Family Medicine 02/05/23 documented as of this encounter
--- OUTSIDE RECORDS SUMMARY | 2024-06-13 14:13 | XMS_ITS | Encounter Summary ---
Author Organization [facility] Address [facility] [place] [address] Care Team Providers Care Bondactor Machine Operator Name Role Phone Deborah Quiroga APRN Primary Care Provider [phone] Encounter Details Date Type Department Care Team (Latest Contact Info) Description 07/03/2022 1:36 PM EST - 07/03/2022 11:59 PM EST Hospital Encounter [place] [address] Discharge Disposition: Home Social History Tobacco Use [...] EST Office Visit [place] [address] Markel Borjas MD [facility] [address] [place] [address] 11/02/2024 12:00 PM EDT [place]oint[place] [address] 11/02/2024 1:00 PM EDT Office [place] [address] Magdalena Peralta MD [facility] [address] 03/01/2025 4:15 PM EDT Office Visit Dermatology at [place] [address] [place] [phone] Marek Bonilla MD [address], [place] [address] documented as of this encounter Procedures Procedure Name Priority Date/Time Associated Diagnosis Comments FOLATE, SERUM Routine 07/03/2022 1:59 PM EST VITAMIN B12 Routine 07/03/2022 1:59 PM EST documented in this encounter Results * Folate, serum (07/03/2022 1:59 PM EST) Folate >20.0 4.8 - 24.2 ng/mL [facility] Blood Venous Draw / Unknown 07/03/2022 1:59 PM EST 07/03/2022 2:13 PM EST Narrative Resulting Agency Comment Spec In Lab Markel Borjas MD CHEMISTRY ORDERABL ES Performing Organization Address City/[facility]/ZIP Co de Phone Number [facility] [place] [address] * Vitamin B12 (07/03/2022 1:59 PM EST) Vitamin B12 449 232 - 1,245 pg/mL [facility] Blood Venous Draw / Unknown 07/03/2022 1:59 PM EST 07/03/2022 2:13 PM EST Narrative Resulting Agency Comment Spec In Lab Markel Borjas MD CHEMISTRY ORDERABL ES [facility] [place] [address] documented in this encounter Visit Diagnoses Not on filedocumented in this encounter Care Teams Bondactor Machine Operator Relationship Specialty Start Date End Date Deborah Quiroga APRN PCP - General Family Medicine 03/24/16 02/04/23 documented as of this encounter
--- OUTSIDE RECORDS SUMMARY | 2024-06-13 14:13 | XMS_ITS | Encounter Summary ---
Author Organization [place] [address] Care Team Providers Care Washing Machine Mechanic Name Role Phone Junaid Deborah Shields APRN Primary Care Provider [phone] Encounter Details Date Type Department Care Team (Latest Contact Info) Description 11/09/2022 10:37 AM EDT - 11/09/2022 4:53 PM EDT Hospital Encounter [place] [address] Nitesh Escobedo MD [facility] [place] [address] Aortic valve stenosis, etiology of cardiac valve [...] 2:30 PM Marek Bonilla MD [facility] New Medications to be Picked Up None For questions regarding this document or issues relating to this hospitalization on the Medical Service, please contact your inpatient physician through the [facility] Plumbing Engineer . Issues afterhours and on weekends will be handled by the Hospitalist staff on-call. * Attachments The following attachments cannot be sent through Care Everywhere. * Coronary Angiogram: Post-op (Italian) * Right Heart Catheterization: Pulmonary Artery Catheterization: Post-op (Italian) documented in this encounter Medications at Time [...] Pre-Procedure H&P Update: Cardiac Catheterization Purnima Thacker [id number] 1955 Chief Complaint: BONILLA HPI: Purnima Thacker [...] [facility] Pager: [phone] documented in this encounter Plan of Treatment Upcoming Encounters Date Type Department Care Team (Late st Contact Info) Description 06/23/2024 2:00 PM EST Office Visit Hematology [place] [address] Markel Borjas MD [facility] [place] [address] 11/02/2024 12:00 PM EDT Appointment [place] [address] 11/02/2024 1:00 PM EDT Office [place] [phone] Magdalena Peralta MD [facility] [place] [address] 03/01/2025 4:15 PM EDT Office Visit Dermatology at [place] [address] [place] [address] Marek Bonilla MD [address], [place] [address] documented as of this encounter Procedures Procedure Name Priority Date/Time Associated Diagnosis Comments CARDIAC CATHETERIZATION Routine 11/10/19 23 1:05 PM EDT Aortic valve stenosis, etiology of cardiac valve disease unspecified Cath [facility] Left Heart Cath & Arts W/Inj & Angio Img S&I ([id number]) 11/09/2022 11:51 AM EDT Aortic valve stenosis, etiology of cardiac valve disease unspecified EKG 12-LEAD Routine 11/09/2022 11:17 AM EDT Aortic valve stenosis, etiology of cardiac valve disease unspecified documented in this encounter Results * CARDIAC CATHETERIZATION (11/09/2022 1:05 PM EDT) Anatomical Region Laterality Modality Other Narrative 11/09/2022 2:01 PM EDT ?[facility] ? Cardiac Catheterization/Intervention Report ? Patient Name: Kirstie, Purnima M. ? Procedure Date: 11/09/2022 ? A #: [id number] ? Primary Physician: Nitesh Escobedo ? Case #: [id number] ? File Name: [id number] ? Catheterization Order Number: [id number] ? [facility] ? Final Report [place], [place] ? Patient Name: ? Purnima M. Kirstie ? ID#: ?[id number] ? : ?1955 ? Procedure Date: ? [...] was designated as ASA Class III. The [facility] clinical frailty scale ?is 4: [...] (Bezet) 457 ms MUSE SYSTEM Calculated P [place] 44 degrees MUSE SYSTEM Calculated R [place] 33 degrees MUSE SYSTEM Calculated T [place] 30 degrees MUSE SYSTEM INTERPRETATION Sinus rhythm Occasional Premature ventricular complexes Otherwise normal ECG When compared with ECG of 21-SEP-2016 12:26, Premature ventricular complexes are now Present NM interval has decreased Nonspecific T wave abnormality has replaced inverted T waves in Inferior leads I personally reviewed the tracing and edited the fellows interpretation Confirmed by fellow MD Anitha, Carissa ([id number]) on 11/09/2022 6:17:28 PM Confirmed by Elsa Linares MD ([id number]) on 11/10/2022 3:47:14 PM MUSE SYSTEM 11/09/2022 [...] MD) documented in this encounter Care Teams Washing Machine Mechanic Relationship Specialty Start Date End Date Deborah Quiroga, TIMBER CRUISER PCP - General Family Medicine 03/24/16 02/04/23 documented as of this encounter
--- OUTSIDE RECORDS SUMMARY | 2024-06-13 14:13 | XMS_ITS | Encounter Summary ---
[place] [address] Care Team Providers Care Sagger Filler Name Role Phone Magdalena Acosta MD Primary Care Provider [phone] Reason for Visit * Reason Comments Suture / Staple Removal Encounter Details Date Type Department Care Team (Late st Contact Info) Description 02/16/2023 10:00 AM EDT Office Visit Dermatology at [place] [address] [place] [phone] Marek Bonilla MD [address] [facility] [address] DERMATOLOGY [place], [place] [phone] Visit for suture removal Social History Tobacco [...] Visit Hematology [place] [address] Mrakel Borjas MD [facility] [address] HEMATOLOGY [place] [address] 11/02/2024 12:00 PM EDT [place] [address] 11/02/2024 1:00 PM EDT Office [place] [address] Magdalena Peralta MD [facility] [place] [address] 03/01/2025 4:15 PM EDT Office Visit Dermatology at [address] [place] [address] Marek Bonilla MD [address], [place] [address] documented as of this encounter Visit Diagnoses Diagnosis Visit for suture removal Encounter for removal of sutures documented in this encounter Care Teams Sagger Filler Relationship Specialty Start Date End Date Magdalena Acosta MD [address] [place] [address] PCP - General Family Medicine 02/05/23 documented as of this encounter
--- OUTSIDE RECORDS SUMMARY | 2024-06-13 14:13 | XMS_ITS | Encounter Summary ---
Author Organization [facility] Address [facility] [place] [address] Care Team Providers Care Computer Numerical Control Machinist Name Role Phone Magdalena Acosta MD Primary Care Provider [phone] Encounter Details Date Type Department Care Team (Late st Contact Info) Description 03/29/2023 Orders Only Cardiology at [address] [address] Ranjan Delgado MD [facility] [place] [address] Severe aortic stenosis (Primary Dx) Social History [...] EST Office Visit Hematology [place] [address] Markel Borjas MD [facility] [address] HEMATOLOGY AND ONCOLOGY [place], [place] [phone] 11/02/2024 12:00 PM EDT Appointment [place] [address] 11/02/2024 1:00 PM EDT Office [place] [address] Magdalena Peralta MD [facility] [place] [address] 03/01/2025 4:15 PM EDT Office Visit Dermatology at [place] [address] [place] [address] Marek Bonilla MD [address] [place] [address] Scheduled Orders Name Type Priority Associated Diagnoses [...] this encounter Care Teams Computer Numerical Control Machinist Relationship Specialty Start Date End Date Magdalena Acosta MD [address] [place] [address] PCP - General Family Medicine 02/05/23 documented as of this encounter
--- OUTSIDE RECORDS SUMMARY | 2024-06-13 14:13 | XMS_ITS | Encounter Summary ---
Author Organization [facility] [place] [address] Care Team Providers Care Registered Nurse Maternity Name Role Phone Magdalena Acosta MD Primary Care Provider [phone] Encounter Details Date Type Department Care Team [...] EST Office Visit Hematology and Oncology at [place] [phone] Markel Borjas MD [facility] [address] [place] [address] 11/02/2024 12:00 PM EDT Appointment [place] [address] 11/02/2024 1:00 PM EDT Office [place] [address] Magdalena Peralta MD [facility] [place] [address] 03/01/2025 4:15 PM EDT Office Visit Dermatology at [place] [address] [place] [address] Marek Bonilla MD [address], [place] [address] documented as of this encounter Visit Diagnoses Not on filedocumented in this encounter Care Teams Registered Nurse Maternity Relationship Specialty Start Date End Date Magdalena Acosta MD [address] [place] [address] PCP - General Family Medicine 02/05/23 documented as of this encounter
--- OUTSIDE RECORDS SUMMARY | 2024-06-13 14:13 | XMS_ITS | Encounter Summary ---
Author Organization [facility] Erika [facility] [place] [address] Care Team Providers Care Flavor Tank Tender Name Role Phone Magdalena Acosta MD Primary Care Provider [phone] Encounter Details Date Type Department Care Team [...] Visit Hematology and Oncology at [place] [phone] Markel Borjas MD [facility] [address] [place] [address] 11/02/2024 12:00 PM EDT Appointment [place] [address] 11/02/2024 1:00 PM EDT Office [place] [address] Magdalena Peralta MD [facility] [place] [address] 03/01/2025 4:15 PM EDT Office Visit Dermatology at [place] [address] [place] [address] Marek Bonilla MD [address], [place] [address] documented as of this encounter Visit Diagnoses Not on filedocumented in this encounter Care Teams Flavor Tank Tender Relationship Specialty Start Date End Date Magdalena Acosta MD [address] [place] [address] PCP - General Family Medicine 02/05/23 documented as of this encounter
--- OUTSIDE RECORDS SUMMARY | 2024-06-13 14:13 | XMS_ITS | Encounter Summary ---
Author Organization [facility] Erika [facility] [place] [address] Care Team Providers Care Blankbook Forwarder Name Role Phone Ashley Quirogazac Shields APRN Primary Care Provider [phone] Encounter Details Date Type Department Care Team [...] Office Visit Hematology and Oncology at [place] [phone] Markel Borjas MD [facility] [address] [place] [address] 11/02/2024 12:00 PM EDT [place]oint[place] [address] 11/02/2024 1:00 PM EDT Office [place] [address] Magdalena Peralta MD [facility] [place] [address] 03/01/2025 4:15 PM EDT Office Visit Dermatology at [place] [address] [place] [address] Marek Bonilla MD [address], [place] [address] documented as of this encounter Visit Diagnoses Not on filedocumented in this encounter Care Teams Blankbook Forwarder Relationship Specialty Start Date End Date Deborah Quiroga APRN PCP - General Family Medicine 03/24/16 02/04/23 documented as of this encounter
--- OUTSIDE RECORDS SUMMARY | 2024-06-13 14:13 | XMS_ITS | Encounter Summary ---
Author Organization [facility] Address [facility] [place] [address] Care Team Providers Care Mortgage Underwriter Name Role Phone Deborah Quiroga APRN Primary Care Provider Encounter Details Date Type Department Care Team (Latest Contact Info) Description 07/03/2022 12:28 PM EST - 07/03/2022 1:35 PM EST Hospital Encounter [place] [address] Chronic idiopathic neutropenia Discharge Disposition: Home Social [...] EST Office Visit [place] [address] Markel Borjas MD [facility] [address] [place] [address] 11/02/2024 12:00 PM EDT [place] [address] 11/02/2024 1:00 PM EDT Office [place] [address] Magdalena Peralta MD [facility] [place] [address] 03/01/2025 4:15 PM EDT Office Visit Dermatology at [place] [address] [address] [place] [address] Marek Bonilla MD [address] [place] [address] RD, [place] [address] documented as of this encounter Procedures Procedure [...] Absolute 2.61 1.70 - 6.10 x10(3)/mc L [facility] Lymph % 18.4 % [facility] Lymphocytes Abs 0.7(L) 0.9 - 3.2 x10(3)/mc L [facility] Monocyte % 8.4 % [facility] Monocyte Abs 0.3 0.3 - 0.9 x10(3)/mc L [facility] Eos % 0.0 % [facility] Eosinophils Abs 0.0 0.0 - 0.4 x10(3)/mc L [facility] Basophil % 0.3 % [facility] Baso Absolute [...] x10(3)/mc L [facility] Blood 07/03/2022 12:4 0 PM EST 07/03/2022 1:03 PM EST Narrative Resulting Agency Comment Spec In Lab Markel Borjas MD HEMATOLOGY ORDERAB LES [facility] [place] [address] * (ABNORMAL) Hemogram (07/03/2022 12:40 PM EST) White Blood Cell 3.6(L) 4.0 - 9.5 x10(3)/[facility] Red Blood Cell 3.61(L) 4.00 - 5.21 x10(6)/[facility] Hemoglobin 11.7 11.7 - 15.5 g/dL [facility] Hematocrit 34.5(L) 35.7 - 45.8 % [facility] Mean Cell Volume 95.6(H) 82.6 - 94.4 fL [facility] Mean Cell Hemoglobin 32.4(H) 27.1 - 32.0 pg [facility] Mean Cell Hemoglobin Concentration 33.9 31.7 - 35.0 g/dL [facility] Platelet 171 145 - 357 x10(3)/[facility] RDW Standard Deviation 40.5 37.0 - 46.0 [facility] RDW coefficient of variation 11.5 11.5 - 14.1 % [facility] Mean Platelet Volume 9.2 7.6 - 12.9 fL [facility] NRBC% auto 0.0 % [facility] NRBC Absolute 0.000 0.000 - 0.000 x10(3)/ L [facility] Blood 07/03/2022 12:4 0 PM EST 07/03/2022 1:03 PM EST Narrative Resulting Agency Comment Spec In Lab Markel Borjas MD HEMATOLOGY ORDERAB LES [facility] [place] [address] * (ABNORMAL) Comprehensive metabolic panel (non-fasting) (07/03/2022 [...] CHEMISTRY ORDERABL ES [facility] [place] [phone] documented in this encounter Visit Diagnoses Diagnosis Chronic idiopathic neutropenia Other neutropenia documented in this encounter Care Teams Mortgage Underwriter Relationship Specialty Start Date End Date Deborah Quiroga APRN PCP - General Family Medicine 03/24/16 02/04/23 documented as of this encounter
--- OUTSIDE RECORDS SUMMARY | 2024-06-13 14:13 | XMS_ITS | Encounter Summary ---
Author Organization [facility] Address [facility] [place] [address] Care Team Providers Care Tin Plater Name Role Phone Magdalena Acosta MD Primary Care Provider [phone] Reason for Visit * Consultation (Routine) - Closed Specialty Diagnoses / Procedures Referred By Contac t Referred To Contact Rheumatology Diagnoses Weakness Kyra Haas MD [facility] [address] [place] [address] [facility] [address] [place] [phone] Referral ID Status Reason Start Date Expiration Date V isits Requested Visits Authorized [id number] Closed Consult, Test & Treat PCP Updated and/or Approved 02/25/2023 02/25/2024 6 6 Encounter Details Date Type Department Care Team (Late st Contact Info) Description 03/18/2023 1:00 PM EDT Office [place] [address] Kia Viramontes, [facility] [place] [address] Magdalena Peralta MD [facility] [address] Positive FRANCISCO (antinuclear antibody) Social [...] 1:5120 speckled VIC negative Myositis panel with ENDOSCOPY SPECIALTY TECHNICIAN ab 149.1 (positive) Anti U1RNP IgG 119 [...] a chair without assistance of upper extremities. Tour Driver strength 3+/5 bilaterally; otherwise large muscle groups [...] Dr. Wander Peralta MD Rheumatology Fellow Pager: [phone] CC: Kyra Haas * Kia Viramontes DO [...] EST Office Visit Hematology [place] [phone] Markel Borjas MD [facility] [address] [place] [address] 11/02/2024 12:00 PM EDT Appointment [place] [address] 11/02/2024 1:00 PM EDT Office [place] [phone] Magdalena Peralta MD [facility] [place] [address] 03/01/2025 4:15 PM EDT Office Visit Dermatology at [address] [place] [phone] Marek Bonilla MD [address] [facility], TOD[place] A DERMATOLOGY [place], [place] [phone] documented as of this encounter Results * Comprehensive metabolic panel (non-fasting) (03/18/2023 2:14 PM EDT) Glucose 93 65 - 199 mg/dL [facility] Comment:Diabetes: >=200 mg/d L plus symptoms Blood Urea Nitrogen 18 8 - 18 mg/dL [facility] Creatinine 0.99 0.70 - 1.20 mg/dL [facility] Sodium 141 135 - 145 mmol/L [facility] Potassium 4.5 3.5 - 5.0 mmol/L [facility] Comment: Please note: ??Patients with WBC >100,000 may have falsely elevated Potassium levels. ??For accurate Potassium quantification in these patients send serum separator tube (gold top) for subsequent determinations. ??Contact the Clinical Chemistry Laboratory if there are any questions. Chloride 106 98 - 107 mmol/L [facility] Carbon Dioxide 24 22 - 31 mmol/L [facility] Anion Gap 11 5 - 15 mmol/L [facility] Calcium 10.0 8.5 - 10.5 mg/dL [facility] Protein, Total 7.3 6.1 - 8.0 g/dL [facility] Albumin 4.3 3.2 - 5.2 g/dL [facility] Aspartate Aminotransferase 26 0 - 30 unit/L [facility] Alanine Aminotransferase 11 0 - 30 unit/L [facility] Alkaline Phosphatase 91 35 - 105 unit/L [facility] Bilirubin, Total 0.4 0.2 - 1.3 mg/dL [facility] Est Glomerular Filtration Rate 62 >=60 mL/min/1. 73 m?? [facility] Comment: This patient's estimated GFR was [...] CHEMISTRY ORDERABL ES [facility] [place] [address] * (ABNORMAL) FRANCISCO Ab by IFA (03/18/2023 2:14 PM EDT) FRANCISCO Ab Screen Test ? Result ?Flag ??Unit ??RefValue Antinuclear Ab, HEp-2 ?Positive 1:2560 ??@ ?<1:80 (Negative) ??Substrate, S ? ADDITIONAL INFORMATION --------- ?Method: Immunofluorescence using HEp-2 cellular substrate. ??FRANCISCO Titer: ? 1:2560 ??FRANCISCO Pattern: ? Speckled ?Test Performed by: ?[facility] ?[address] [id number] ?Line Maintenance: Raymond Chaudhry M.D. Ph.D.; CLIA# [id number] (A) [facility] Blood 03/18/2023 2:14 PM EDT 03/18/2023 3:02 PM EDT Narrative Resulting Agency Comment Spec In Lab Kia Viramontes DO CHEMISTRY ORDERABL ES [facility] [place] [address] * DNA Antibody (Double-Stranded) (03/18/2023 2:14 PM EDT) dsDNA Ab <0.6 <=15.0 IU/mL [facility] Comment: <10 negative 10-15 equivocal >15 positive This dsDNA antibody result was generated using a fluoroenzyme immunoassay on the Catapooolt 250 analyzer. This quantitative test is designed [...] OUT ORDER JODIE Performing Organization Address City/[facility] Co de Phone Number [facility] [place] [address] * CK (03/18/2023 2:14 PM EDT) Creatine Kinase 38 0 - 160 unit/L [facility] Blood 03/18/2023 2:14 PM EDT 03/18/2023 2:24 PM EDT Narrative Resulting Agency Comment Spec In Lab Kia Viramontes DO CHEMISTRY ORDERABL ES Performing Organization Address [facility] Co de Phone Number [facility] [place] [address] * C4 Complement (03/18/2023 2:14 PM EDT) Complement C4 30 10 - 40 mg/dL [facility] Blood 03/18/2023 2:14 PM EDT 03/18/2023 2:24 PM EDT Narrative Resulting Agency Comment Spec In Lab Kia Viramontes DO CHEMISTRY ORDERABL ES Performing Organization Address [facility] Co de Phone Number [facility] [place] [address] * C3 Complement (03/18/2023 2:14 PM EDT) Complement C3 142 90 - 180 mg/dL [facility] Blood 03/18/2023 2:14 PM EDT 03/18/2023 2:24 PM EDT Narrative Resulting Agency Comment Spec In Lab Kia Viramontes DO CHEMISTRY ORDERABL ES Performing Organization Address [facility] Co de Phone Number [facility] [place] [address] * CRP, acute inflammation (03/18/2023 2:14 PM EDT) C-Reactive Protein 3.0 <=4.9 mg/L [facility] Blood 03/18/2023 2:14 PM EDT 03/18/2023 2:24 PM EDT Narrative Resulting Agency Comment Spec In Lab Kia Viramontes DO CHEMISTRY ORDERABL ES Performing Organization Address [facility] Co de Phone Number [facility] [place] [address] * (ABNORMAL) Sedimentation rate (03/18/2023 2:14 PM EDT) Sedimentation Rate Automated 68(H) 2 - 39 mm/hr [facility] Comment: Effective July 12, 2019 new capillary photometric technology has resulted in a change in reference ranges. It is recommended that each ESR result be reviewed with its own age appropriate reference range. Blood 03/18/2023 2:14 PM EDT 03/18/2023 2:24 PM EDT Narrative Resulting Agency Comment Spec In Lab Kia Viramontes DO HEMATOLOGY ORDERAB LES Performing Organization Address [facility] Co de Phone Number [facility] [place] [address] documented in this encounter Visit Diagnoses Diagnosis Positive FRANCISCO (antinuclear antibody) Other and unspecified nonspecific immunological findings documented in this encounter Care Teams Tin Plater Relationship Specialty Start Date End Date Magdalena Acosta MD [address] [place] [address] PCP - General Family Medicine 02/05/23 documented as of this encounter
--- OUTSIDE RECORDS SUMMARY | 2024-06-13 14:13 | XMS_ITS | Encounter Summary ---
Author Organization [facility] [place] [address] Care Team Providers Care Table Worker Name Role Phone Magdalena Acosta MD Primary Care Provider [phone] Encounter Details Date Type Department Care Team (Latest Contact Info) Description 02/05/2023 9:33 PM EDT - 02/05/2023 11:59 PM EDT [place] [phone] Discharge Disposition: Home Social History Tobacco Use [...] EST Office Visit Hematology [place] [phone] Markel Borjas MD [facility] [place] [address] 11/02/2024 12:00 PM EDT Appointment [place] [phone] 11/02/2024 1:00 PM EDT Office [place] [address] Magdalena Peralta MD [facility] [address] 03/01/2025 4:15 PM EDT Office Visit Dermatology at [address] [place] [address] Marek Bonilla MD [address], [place] [address] documented as of this encounter Procedures Procedure Name Priority Date/Time Associated Diagnosis Comments SURGICAL PATHOLOGY REPORT Routine 02/05/2023 3:00 PM EDT documented in this encounter Results * Surgical Pathology Report (02/05/2023 3:00 PM EDT) Final Diagnosis [id number] ? Location: OPW The signing pathologist has (i) examined the relevant preparation(s) for the specimen(s) and (ii) rendered or confirmed the diagnosis(es). . ?Surgical Pathology DIAGNOSIS Left upper back, skin punch biopsy: - ??Compound dysplastic ??melanocytic nevus with moderate atypia, transected at peripheral specimen edges ?? (see discussion) Electronically signed by: ?Vanna CULP, Jesse Shields Verified: ??02/16/2023 8:04 ?? Dermatopathologist Performed at: ??-[facility] Dept. of [place]ology, [place] [address] Nutrition Representative: Kunal Rubi MD, FCAP, ??CLIA Certificate: [id number] DISCUSSION If there is an obvious clinical [...] Marek Bonilla MD PATHOLOGY/CYTOLOGY O RDERABLES [facility] [place] [address] [facility] [place] [address] documented in this encounter Visit Diagnoses Not on filedocumented in this encounter Care Teams Table Worker Relationship Specialty Start Date End Date Magdalena Acosta MD [address] [place] [address] PCP - General Family Medicine 02/05/23 documented as of this encounter
--- OUTSIDE RECORDS SUMMARY | 2024-06-13 14:13 | XMS_ITS | Encounter Summary ---
Author Organization [facility] [place] [address] Care Team Providers Care Polygraph Operator Name Role Phone JunaidAshley hargrovezac Shields APRN Primary Care Provider [phone] Encounter Details Date Type Department Care Team (Late st Contact Info) Description 11/02/2022 [place] [address] Emily Lyons PA [facility] CARDIOLOGY [place], [place] [address] Aortic valve stenosis, etiology of cardiac valve [...] EST Office Visit Hematology [place] [address] Markel Borjas MD [facility] HEMATOLOGY AND ONCOLOGY [place], [place] [phone] 11/02/2024 12:00 PM EDT Appointment [place] [address] 11/02/2024 1:00 PM EDT Office Visit [place] [address] Magdalena Peralta MD [facility] [place] [address] 03/01/2025 4:15 PM EDT Office Visit Dermatology at [place] [address] [facility] [place] [phone] Marek Bonilla MD [address] [facility], [place] [address] documented as of this encounter Visit Diagnoses Diagnosis Aortic valve stenosis, etiology of cardiac valve disease unspecified documented in this encounter Care Teams Polygraph Operator Relationship Specialty Start Date End Date Deborah Quiroga APRN PCP - General Family Medicine 03/24/16 02/04/23 documented as of this encounter
--- OUTSIDE RECORDS SUMMARY | 2024-06-13 14:13 | XMS_ITS | Encounter Summary ---
Author Organization [facility] [place] [address] Care Team Providers Care Area Safety Manager Name Role Phone Deborah Quiroga APRN Primary Care Provider Encounter Details Date Type Department Care Team (Late st Contact Info) Description 06/08/2022 Ancillary Procedure Radiology Library at [facility] [place] [address] Deborah Quiroga APRN [address] [place] [phone] Social History Tobacco Use Types Packs/Day [...] EST Office Visit Hematology [place] [phone] Markel Borjas MD [facility] [place] [address] 11/02/2024 12:00 PM EDT Appointment [place] [phone] 11/02/2024 1:00 PM EDT Office [place] [address] Magdalena Peralta MD [facility] [place] [address] 03/01/2025 4:15 PM EDT Office Visit Dermatology at [place] [address] [facility] [place] [phone] Marek Bonilla MD [address], [place] [address] documented as of this encounter Procedures Procedure Name Priority Date/Time Associated Diagnosis Comments FILM LIBRARY STORAGE ONLY DX SPINE Routine 06/08/2022 12:00 AM EST documented in this encounter Results * Film Library- Storage Only DX Spine (06/08/2022 12:00 AM EST) Narrative [facility] - 06/18/2022 10:57 AM EST This exam is auto-finalizing. It's purpose is for storage only. Deborah Quiroga APRN IMGerman FILM LIBRARY OR DERABLES Performing Organization Address City/State/[place] Co de Phone Number [place], [place] documented in this encounter Visit Diagnoses Not on filedocumented in this encounter Care Teams Area Safety Manager Relationship Specialty Start Date End Date Deborah Quiroga APRN PCP - General Family Medicine 03/24/16 02/04/23 documented as of this encounter
--- OUTSIDE RECORDS SUMMARY | 2024-06-13 14:13 | XMS_ITS | Encounter Summary ---
[place] [address] Care Team Providers Care Wheel Borer Name Role Phone Ashley Quirogazac Shields APRN Primary Care Provider [phone] Reason for Visit * Reason Comments Annual Exam Encounter Details Date Type Department Care Team (Late st Contact Info) Description 01/09/2022 3:15 PM EDT Office Visit Dermatology at [address] [phone] Marek Bonilla MD [address] [facility], QU[address] A DERMATOLOGY [place], [place] [phone] Rosacea Social History Tobacco Use Types Packs/Day [...] cutaneous and ocular 2. Previously told by pump house operator that she had corneal tears from [...] refills. We will call this into her [facility] pharmacy in [place] 3. Continue metronidazole 0.75% gel applying every [...] EST Office Visit Hematology [place] [address] Markel Borjas MD [facility] [address] [place] [address] 11/02/2024 12:00 PM EDT Appointment [place] [phone] 11/02/2024 1:00 PM EDT Office [place] [address] Magdalena Peralta MD [facility] [place] [address] 03/01/2025 4:15 PM EDT Office Visit Dermatology at [place] [address] [facility] [place] [address] Marek Bonilla MD [address], [place] [address] documented as of this encounter Visit Diagnoses Diagnosis Rosacea documented in this encounter Care Teams Wheel Borer Relationship Specialty Start Date End Date Deborah Quiroga APRN PCP - General Family Medicine 03/24/16 02/04/23 documented as of this encounter
--- OUTSIDE RECORDS SUMMARY | 2024-06-13 14:13 | XMS_ITS | Encounter Summary ---
Author Organization [facility] [place] [address] Care Team Providers Care Well Blower Name Role Phone Winter Quiroga APRN Primary Care Provider [phone] Encounter Details Date Type Department Care Team (Late st Contact Info) Description 06/05/2021 Interpretation Only [address] [address] Winter Quiroga APRN [address] [phone] Social History Tobacco Use Types Packs/Day Years [...] EST Office Visit Hematology [place] [address] Markel Borjas MD [facility] [address] HEMATOLOGY [place] [address] 11/02/2024 12:00 PM EDT Appointment [place] [phone] 11/02/2024 1:00 PM EDT Office [place] [address] Magdalena Peralta MD [facility] [place] [address] 03/01/2025 4:15 PM EDT Office Visit Dermatology at [place] [address] [facility] [address] [place] [address] Marek Bonilla MD [address] [facility] [address] [address], [place] [address] documented as of this encounter Procedures Procedure Name Priority Date/Time Associated Diagnosis Comments DXA CENTRAL SPINE, HIP, AND/OR WHOLE BODY (GENERIC) Routine 06/05/2021 11:58 AM EDT documented in this encounter Results * DXA Central Spine, Hip, and/or Whole Body (Generic) (06/05/2021 11:58 AM EDT) PT CLASS O RAD ADMITDTTM RAD PT RAD INFO [id number]^E VERETT^WINTER ^E RAD EXAM DESC XDXAC^DEXA SCAN [...] who have questions please contact the health adult caregiver that requested your imaging first. ? [...] patients who have questions please contactthe health adult caregiver that requested your imaging first. Winter Quiroga APRN IMGerman DEXA ORDERABLES documented in this encounter Visit Diagnoses Not on filedocumented in this encounter Care Teams Well Blower Relationship Specialty Start Date End Date Winter Quiroga APRN PCP - General Family Medicine 03/24/16 02/04/23 documented as of this encounter
--- OUTSIDE RECORDS SUMMARY | 2024-06-13 14:13 | XMS_ITS | Encounter Summary ---
[place] [address] Care Team Providers Care Rn Surgical Name Role Phone Deborah Quiroga APRN Primary Care Provider [phone] Reason for Referral * Consultation (Routine) - Closed Specialty Diagnoses / Procedures Referred By Contac t Referred To Contact Rheumatology Diagnoses Positive FRANCISCO (antinuclear antibody) Arthralgia, unspecified joint Sandy Wu APRN [address] [place] [address] [facility] Rheumatology [address] [place] [phone] Referral ID Status Reason Start Date Expiration Date V isits Requested Visits Authorized [id number] Closed Consult, Test & Treat PCP Updated and/or Approved 01/01/2022 01/01/2023 6 6 Encounter Details Date Type Department Care Team (Latest Contact Info) Description 01/01/2022 Transcribe Orders eDH Incoming Referrals [phone] Sandy Wu APRN [address] [place], [place] [id number] Positive FRANCISCO (antinuclear antibody); Arthralgia, unspecified joint [...] EST Office Visit Hematology and Oncology at [place] [phone] Markel Borjas MD [facility] [address] [place] [address] 11/02/2024 12:00 PM EDT Appointment Pulmonology at [address] 11/02/2024 1:00 PM EDT Office Visit Rheumatology at [place] [address] Magdalena Peralta MD [facility] [place] [address] 03/01/2025 4:15 PM EDT Office Visit Dermatology at [address] [phone] Marek Bonilla MD [address] [place] [address], [place] [address] Scheduled Referrals Name Type Priority Associated Diagnoses Orde r Schedule Referral to Rheumatology Outpatient Referral Routine Positive FRANCISCO (antinuclear antibody) Arthralgia, unspecified joint Ordered: 01/01/2022 documented as of this encounter Visit Diagnoses Diagnosis Positive FRANCISCO (antinuclear antibody) Other and unspecified nonspecific immunological findings Arthralgia, unspecified joint documented in this encounter Care Teams Rn Surgical Relationship Specialty Start Date End Date Deborah Quiroga APRN PCP - General Family Medicine 03/24/16 02/04/23 documented as of this encounter
--- OUTSIDE RECORDS SUMMARY | 2024-06-13 14:13 | XMS_ITS | Encounter Summary ---
Author Organization [facility] Address [facility] [place] [address] Care Team Providers Care Bonding Machine Setter Name Role Phone Deborah Quiroga ANURAG Primary Care Provider [phone] Encounter Details Date Type Department Care Team (Late st Contact Info) Description 01/09/2022 Refill Dermatology at [address] [phone] Lupe Connor RN Social History Tobacco Use [...] EST Office Visit Hematology and Oncology at [place] [phone] Markel Borjas MD [facility] [address] [place] [address] 11/02/2024 12:00 PM EDT Appointment [place] [address] 11/02/2024 1:00 PM EDT Office Visit Rheumatology at [place] [phone] Magdalena Peralta MD [facility] [place] [address] 03/01/2025 4:15 PM EDT Office Visit Dermatology at [place] [address] [place] [phone] Marek Bonilla MD [address] [facility], [place] [address] documented as of this encounter Visit Diagnoses Not on filedocumented in this encounter Care Teams Bonding Machine Setter Relationship Specialty Start Date End Date Deborah Quiroga APRN PCP - General Family Medicine 03/24/16 02/04/23 documented as of this encounter
--- OUTSIDE RECORDS SUMMARY | 2024-06-13 14:13 | XMS_ITS | Encounter Summary ---
Author Organization [facility] Address [facility] [place] [address] Care Team Providers Care Athletic Gear Custodian Name Role Phone Deborah Quiroga APRN Primary Care Provider +1 [phone] Reason for Visit * Reason Comments Follow-up Encounter Details Date Type Department Care Team (Late st Contact Info) Description 07/03/2022 1:30 PM EST Office Visit Hematology [place] [address] Markel Borjas MD [facility] [address] HEMATOLOGY [place] [address] Consuelo Sommer APRN [facility] [address] HEMATOLOGY [place] [address] Chronic idiopathic neutropenia; Dysuria Social History Tobacco [...] 07/03/2022 1:30 PM EST Hematology Outpatient Clinic [facility] Hematology Outpatient Consult Note [...] TOUCH PREP, CLOT SECTION, CORE ??BIOPSY); [OSR# [id number], COLLECTED 06/23/2016, 19 SLIDES]: ?1. 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 Extremities: No edema. Labs: Hgb= 11.7 Nxyl=464 ANC= 2.5 Imaging As above - reviewed [...] Office Visit Hematology [place] [address] Markel Borjas MD [facility] [address] HEMATOLOGY [place] [address] 11/02/2024 12:00 PM EDT Appointment [place] [address] 11/02/2024 1:00 PM EDT Office Visit [place] [phone] Magdalena Peralta MD [facility] [address] [place] [address] 03/01/2025 4:15 PM EDT Office Visit Dermatology at [address] [place] [phone] Marek Bonilla MD [address] [facility], [place] [address] documented as of this encounter Procedures Procedure [...] Borjas MD MICROBIOLOGY - GEN ERAL ORDERABLES [facility] [place] [address] * (ABNORMAL) Urinalysis Microscopic Exam (07/03/2022 2:00 [...] Borjas MD URINE ORDERABLES Performing Organization Address City/[facility]/ZIP Co de Phone Number [facility] [place] [address] * (ABNORMAL) Urinalysis with reflex Culture (07/03/2022 [...] [place] [facility] Appearance, Urine Dipstick Clear Clear [facility] Specific [place] Urine Automated 1.022 1.005 - 1.030 [facility] Color, Urine Dipstick Yellow Yellow [facility] Reflex to Culture Yes [facility] Clean Catch Urine 07/03/2022 2:00 PM EST 07/03/2022 2:29 PM EST Narrative Resulting Agency Comment Spec In Lab Markel Borjas MD URINE ORDERABLES Performing Organization Address City/[facility]/ZIP Co de Phone Number [facility] [place] [address] * (ABNORMAL) Comprehensive metabolic panel (non-fasting) (07/03/2022 [...] Address City/State/[facility] Co de Phone Number [facility] [place] [phone] documented in this encounter Visit Diagnoses Diagnosis Chronic idiopathic neutropenia Other neutropenia Dysuria documented in this encounter Care Teams Athletic Gear Custodian Relationship Specialty Start Date End Date Deborah Quiroga APRN PCP - General Family Medicine 03/24/16 02/04/23 documented as of this encounter
[2024-06-13 14:14] VITALS: BP 125/50; PULSE 79
--- OUTSIDE RECORDS SUMMARY | 2024-06-13 14:14 | XMS_ITS | Encounter Summary ---
Author Organization [facility] Address [facility] [place] [address] Care Team Providers Care Grocery Store Manager Name Role Phone Ashley Quirogan Cornelius ANURAG Primary Care Provider +1 [phone] Encounter Details Date Type Department Care Team (Late st Contact Info) Description 07/21/2017 Orders Only Hematology and Oncology at [place] [phone] Alexandrea Greenwood RN Other neutropenia Social History [...] Visit Hematology and Oncology at [place] [phone] Markel Borjas MD [facility] [address] [place] [address] 11/02/2024 12:00 PM EDT Appointment Pulmonology at [place] [phone] 11/02/2024 1:00 PM EDT Office Visit Rheumatology at [place] [phone] Magdalena Peralta MD [facility] [address] [place] [address] 03/01/2025 4:15 PM EDT Office Visit Dermatology at [place] [address] [facility] [place] [phone] Marek Bonilla MD [address], [place] [address] documented as of this encounter Visit Diagnoses Diagnosis Other neutropenia documented in this encounter Care Teams Grocery Store Manager Relationship Specialty Start Date End Date Deborah Quiroga APRN PCP - General Family Medicine 03/24/16 02/04/23 documented as of this encounter
--- OUTSIDE RECORDS SUMMARY | 2024-06-13 14:14 | XMS_ITS | Encounter Summary ---
Author Organization [facility] Address [facility] [place] [address] Care Team Providers Care Committee Member Name Role Phone Junaid, Deborah Shields APRN Primary Care Provider +1 [phone] Reason for Visit * Reason Comments Schedule Office Case Pain right leg Encounter Details Date Type Department Care Team (Late st Contact Info) Description 12/11/2016 9:00 AM EDT Office Visit Hematology [place] [address] Markel Borjas MD [facility] [address] [place] [address] Neutropenia, unspecified type Social History Tobacco Use [...] 12/11/2016 9:00 AM EDT Hematology Outpatient Clinic [facility] Hematology Outpatient Consult Note CC: [...] TOUCH PREP, CLOT SECTION, CORE ??BIOPSY); [OSR# [id number], COLLECTED 06/23/2016, 19 SLIDES]: ?1. 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 Extremities: No edema. Labs: Hgb= 13 Rzhy=412 ANC= 0.5 Imaging As above - reviewed [...] EST Office Visit Hematology [place] [address] Markel Borjas MD [facility] [address] [place] [address] 11/02/2024 12:00 PM EDT Appointment [place] [phone] 11/02/2024 1:00 PM EDT Office [place] [address] Magdalena Peralta MD [facility] [place] [address] 03/01/2025 4:15 PM EDT Office Visit Dermatology at [place] [address] [place] [phone] Marek Bonilla MD [address], [place] [address] documented as of this encounter Results * [...] LES Performing Organization Address City/[facility]/ZIP Co de Phone Number EXTERNAL [...] type documented in this encounter Care Teams Committee Member Relationship Specialty Start Date End Date Deborah Quiroga APRN PCP - General Family Medicine 03/24/16 02/04/23 documented as of this encounter
--- OUTSIDE RECORDS SUMMARY | 2024-06-13 14:14 | XMS_ITS | Encounter Summary ---
Author Organization [facility] [place] [address] Care Team Providers Care Vault Clerk Name Role Phone Ashley Quirogan Cornelius ANURAG Primary Care Provider +1 [phone] Encounter Details Date Type Department Care Team (Late st Contact Info) Description 02/07/2020 Telephone H[place]ology [place] [address] Ellen Rios RN Social History [...] 12:59 PM EDT Message received from secretary bookkeeper: Injection/Infusion Referral Services to be provided for pt are: CBC only at [facility]- Pt will go by 02/27 Orders faxed to [phone]). Spoke with pt. She will call [facility] directly to schedule a time that works for her. documented in this encounter Plan of Treatment Upcoming Encounters Date Type Department Care Team (Late Contact Info) Description 06/23/2024 2:00 PM EST Office Visit [place] [address] Markel Borjas MD [facility] DR HEMATOLOGY [place] [address] 11/02/2024 12:00 PM EDT Appointment Pulmonology at [place] [address] 11/02/2024 1:00 PM EDT Office Visit Rheumatology at [place] [phone] Magdalena Peralta MD [facility] [place] [address] 03/01/2025 4:15 PM EDT Office Visit Dermatology at [place] [address] [facility] [place] [address] Marek Bonilla MD [address], [place] [address] documented as of this encounter Visit Diagnoses Not on filedocumented in this encounter Care Teams Vault Clerk Relationship Specialty Start Date End Date Deborah Quiroga APRN PCP - General Family Medicine 03/24/16 02/04/23 documented as of this encounter
--- OUTSIDE RECORDS SUMMARY | 2024-06-13 14:14 | XMS_ITS | Encounter Summary ---
Author Organization [facility] Address [facility] [place] [address] Care Team Providers Care Gas And Oil Checker Name Role Phone Deborah Quiroga APRN Primary Care Provider [phone]- [phone] Encounter Details Date Type Department Care Team (Latest Contact Info) Description 10/14/2016 - 10/14/2016 11:59 PM EDT Hospital Encounter Radiology [facility] at [facility] [place] [phone] Alirio Esparza MD Pain Discharge Disposition: Home [...] EST Office Visit H[place]ology [place] [address] Markel Borjas MD [facility] [address] HEMAT[place] [address] 11/02/2024 12:00 PM EDT Appoint[place] [phone] 11/02/2024 1:00 PM EDT Office [place] [address] Magdalena Peralta MD [facility] [place] [address] 03/01/2025 4:15 PM EDT Office Visit Dermatology at [place] [address] [facility] [place] [address] Marek Bonilla MD [address], [place] [address] documented as of this encounter Procedures Procedure [...] [facility] Co de Phone Number [place], [place] documented in this encounter Visit Diagnoses Diagnosis Pain Generalized pain documented in this encounter Care Teams Gas And Oil Checker Relationship Specialty Start Date End Date Deborah Quiroga, NITRO MAN PCP - General Family Medicine 03/24/16 02/04/23 documented as of this encounter
--- OUTSIDE RECORDS SUMMARY | 2024-06-13 14:14 | XMS_ITS | Encounter Summary ---
[place] [address] Care Team Providers Care Automobile Body Repair Supervisor Name Role Phone Ashley Quirogan Cornelius ANURAG Primary Care Provider +1 [phone] Reason for Visit * Reason Comments Acrochordon Rosacea Encounter Details Date Type Department Care Team (Late st Contact Info) Description 12/05/2020 3:00 PM EDT Office Visit Dermatology at [address] [address] Marek Bonilla MD [address] [facility], [place] [address] Inflamed acrochordon Social History Tobacco Use Types [...] Hematology [place] [address] Markel Borjas MD [facility] DR HEMATOLOGY [place] [address] 11/02/2024 12:00 PM EDT Appointment Pulmonology at [place] [address] 11/02/2024 1:00 PM EDT Office Visit [place] [address] Magdalena Peralta MD [facility] [place] [address] 03/01/2025 4:15 PM EDT Office Visit Dermatology at [address] [place] [address] Marek Bonilla MD [address], [place] [address] documented as of this encounter Visit Diagnoses Diagnosis Inflamed acrochordon Unspecified hypertrophic and atrophic condition of skin documented in this encounter Care Teams Automobile Body Repair Supervisor Relationship Specialty Start Date End Date Deborah Quiroga APRN PCP - General Family Medicine 03/24/16 02/04/23 documented as of this encounter
--- OUTSIDE RECORDS SUMMARY | 2024-06-13 14:14 | XMS_ITS | Encounter Summary ---
Author Organization [facility] [place] [address] Care Team Providers Care Plate Embosser Name Role Phone Ashley Quirogazac Shields APRN Primary Care Provider +1 [phone] Encounter Details Date Type Department Care Team (Late st Contact Info) Description 06/18/2017 External Results Hematology and Oncology at [place] [phone] Alexandrea Greenwood RN Neutropenia, unspecified type Social [...] EST Office Visit Hematology [place] [address] Markel Borjas MD [facility] [address] [place] [address] 11/02/2024 12:00 PM EDT Appointment [place] [address] 11/02/2024 1:00 PM EDT Office Visit Rheumatology at [place] [phone] Magdalena Peralta MD [facility] [place] [address] 03/01/2025 4:15 PM EDT Office Visit Dermatology at [place] [address] [place] [address] Marek Bonilla MD [address], [place] [address] documented as of this encounter Procedures Procedure [...] type documented in this encounter Care Teams Plate Embosser Relationship Specialty Start Date End Date Deborah Quiroga, MEALS ON WHEELS DRIVER PCP - General Family Medicine 03/24/16 02/04/23 documented as of this encounter
--- OUTSIDE RECORDS SUMMARY | 2024-06-13 14:14 | XMS_ITS | Encounter Summary ---
Author Organization [facility] [place] [address] Care Team Providers Care Residence Life Coordinator Name Role Phone Winter Quiroga APRN Primary Care Provider +1- [phone] Encounter Details Date Type Department Care Team (Late st Contact Info) Description 06/05/2021 Interpretation Only [address] [address] Winter Quiroga APRN [address] [phone] Social History Tobacco Use Types Packs/Day Years [...] Hematology [place] [address] Markel Borjas MD [facility] [address] HEMATOLOGY [place] [address] 11/02/2024 12:00 PM EDT Appointment [place] [phone] 11/02/2024 1:00 PM EDT Office [place] [address] Magdalena Peralta MD [facility] [place] [address] 03/01/2025 4:15 PM EDT Office Visit Dermatology at [place] [address] [place] [address] Marek Bonilla MD [address], [place] [address] documented as of this encounter Procedures Procedure Name Priority Date/Time Associated Diagnosis Comments MAMMO SCREENING CAD AND CATRACHITO BILATERAL Routine 06/05/2021 11:42 AM EDT documented in this encounter Results * Mammo Screening Cad and Catrachito Bilateral (06/05/2021 11:42 AM EDT) PT CLASS O DH RAD ADMITDTTM DH RAD PT DH RAD INFO [id number]^EVERET T^WINTER^E DH RAD EXAM DESC MADDSCTO^BREAST SCREEN [...] signed by: Rocael Villatoro MD, [facility] ([phone]), at 06/05/2021 1:27 PM Narrative 06/05/2021 1:27 [...] signed by: Rocael Villatoro MD, [facility]([phone]), at 06/05/2021 1:27 PM Winter Quiroga APRN IMG MAMMO ORDERABLE S documented in this encounter Visit Diagnoses Not on filedocumented in this encounter Care Teams Residence Life Coordinator Relationship Specialty Start Date End Date Winter Quiroga APRN PCP - General Family Medicine 03/24/16 02/04/23 documented as of this encounter
--- OUTSIDE RECORDS SUMMARY | 2024-06-13 14:14 | XMS_ITS | Encounter Summary ---
Author Organization [facility] [place] [address] Care Team Providers Care Greenskeeper Supervisor Name Role Phone Ashley Quirogazac Shields APRN Primary Care Provider [phone] Reason for Referral * Consultation (Routine) - Specialty Diagnoses / Procedures Referred By Contact Referred To Contact Cardiac Rehabilitation Diagnoses S/P AVR Alirio Esparza MD [facility] DR [place] [address] Cardiac Rehab, [address] [place] [address] Referral ID Status Reason Start Date Expiration Date V isits Requested Visits Authorized [id number] Consult, Test & Treat 09/25/2016 03/24/2017 36 36 Reason for Visit * Auth/Cert Specialty Diagnoses / Procedures Referred By Contkrystle t Referred To Contact Diagnoses Aortic stenosis Procedures PRO REPLACE AORT VALV, PROSTH VALV @REPLACE AORTIC VALVE, OPEN, W\CPB, W\PROSTHETIC VALVE (WRVU 41.32) Referral ID Status Reason Start Date Expiration Date Visits Re quested Visits Authorized [id number] 1 1 Encounter Details Date Type Department Care Team (Latest Contact Info) Description 09/21/2016 6:08 AM EST - 09/25/2016 4:33 PM EST Hospital Encounter Intermediate [place] [id number] Alirio Esparza MD Aortic valve stenosis, unspecified [...] Patient Age: 61 y.o. Birthdate: 1955 Language: Wallisian Race: White Ethnicity: Not nor Admit Date: 09/21/2016 Discharge Date: 09/25/2016 Attending Physician: Alirio Esparza MD Follow-up Recommendations for Providers: Please continue routine management of cardiovascular risk factors including blood pressure, lipids,glucose, etc. Please note any changes to medications. Patient to follow-up with PCP, Deborah Quiroga APRN, in 1-2 weeks. Patient to follow-up with Metal Treater, Dr. Antelmo Burrell, in two weeks. Patient to follow-up with Cardiac Surgery, Dr. Alirio Esparza, to be scheduled for before 10/19/2016, with CXR, EKG, and Echo. Inpatient Provider Contact Information: [facility] Section of Cardiac Surgery [employer] [facility] [employer] [phone] FAX [phone] Discharge Diagnoses (Hospital Problems) Primary Diagnoses: Secondary [...] 41.32) performed by Alirio Esparza MD at [facility] MAIN OR ??? Pro aortoplas for supravalv sten N/A 09/21/2016 @AORTOPLASTY FOR SUPRAVALVULAR STENOSIS (WRVU 29.33) performed by Alirio Esparza MD at [facility] MAIN OR Prior To Admission Medications [...] Alirio Esparza and/or the Cardiac Surgery Physician Clinical Social Worker Team may be reached at . Antibiotic prophylaxis: You will need to take antibiotics prior to many invasive tests and treatments, such as dental cleaning, which should be done every 6 months. Your primary care physician or your dentist can prescribe this medication. Please refer to the card with the [place] Heart [employer] Guidelines for more information. You have been provided with 3 copies of this card. Keep one for your self. Give one to your primary care physician and one to your dentist. Please refer to the [place] Heart [employer] Guidelines for more information. Good [...] Dr. Alirio Jones. You may use a [place] Track or treadmill but avoid any [...] should resume a low fat, low cholesterol, [place] Heart [employer] Diet. Driving: No driving until [...] AM Markel Borjas MD [facility] [phone] Future Orders Complete By Expires Echocardiogram Transthoracic([place]) [PRW067 Custom] 10/18/2016 (Approximate) 09/18/2017 Process Instructions: If the Echocardiogram is to be PERFORMED in a location other than [place]--STOP and order ADU301, Echocardiogram South/External. Scheduling Instructions: Questions: Is a Bubble Study requested?: No Does the patient have Congenital Heart Disease?: No Does patient require sedation?: None GA rationale: Should this service be billed to the research sponsor?: EKG 12 Lead [EKG1 Custom] 10/18/2016 (Approximate) 09/25/2017 Process Instructions: Scheduling Instructions: Questions: Which location will this be performed?: [place] Is a rhythm strip needed?: No If EKG Reason is Pre-op Evaluation, indicate diagnosis for surgery.: Should this service be billed to the research sponsor?: XR Chest PA & Lateral (Generic) [[id number] Custom] 10/18/2016 (Approximate) 09/25/2017 Process Instructions: Scheduling Instructions: Questions: Where will study be performed?: [facility]- Radiology Portable exam?: No Reason for exam and clinical history: s/p AVReplacement, patch annuloplasty 1 month f/u Other pertinent information: Stat read required?: Date of injury if applicable: Requested Time: Referral to Cardiac Rehab [XFT434 Custom] As directed Process Instructions: If no progress note charted, please enter Clinical details in comments. Scheduling Instructions: Questions: My question or request is: s/p AVR. Cardiac rehab at [facility] Referral to Home Health - at DISCHARGE [TTD0222 CPT(R)] As directed Process Instructions: Scheduling Instructions: Comments: DOCUMENTATION FOR VNA SERVICES (INCLUDING THOSE PATIENTS WITH MEDICARE COVERAGE REQUIRING HOME VNA SERVICES AND/OR HOSPICE SERVICES) PATIENT'S LOCATION: Purnima Magalie Kirstie [address] [place] [phone] (home) No relevant phone numbers on file. Feed Mill Manager's Name: self In discussion with the attending physician, it is certified that this patient is under their care and that they, or a Nurse Practitioner, or Physician Clinical Social Worker who is working directly with them, [...] for services as follows: HOME HEALTH AGENCY: [facility] PHONE: [phone] FAX: [phone] RN orders: Cardiopulmonary assessment, incisional assessment, assess [...] issues please call the Cardiac SurgeryOffice at [phone] FOR MEDICARE ONLY: In discussion with the [...] [facility] [employer] [facility] [employer] [phone] FAX [phone] Date: 09/25/2016 CC: ANURAG Alford Caryn E, APRN [address] [place] [address] documented in this encounter Discharge Instructions * [...] Alirio Esparza and/or the Cardiac Surgery Physician Clinical Social Worker Team may be reached at . Antibiotic prophylaxis: You will need to take antibiotics prior to many invasive tests and treatments, such as dental cleaning, which should be done every 6 months. Your primary care physician or your dentist can prescribe this medication. Please refer to the card with the [place] Heart [employer] Guidelines for more information. You have been provided with 3 copies of this card. Keep one for your self. Give one to your primary care physician and one to your dentist. Please refer to the [place] Heart [employer] Guidelines for more information. Good [...] Dr. Alirio Jones. You may use a [place] Track or treadmill but avoid any [...] should resume a low fat, low cholesterol, [place] Heart [employer] Diet. Driving: No driving until [...] will return to clinic to see Dr. Aliiro Esparza or a Cardiac Surgery PA, to [...] PM EST Cardiac Surgery Progress Note: ID: [id number] S/p AVR, patch aortoplasty POD#2. PMH of [...] Gas) No results found for: PHART, PO2ART, AHA9BJH Assessment/Plan: TPW out this am. (+) BM. [...] Signed: Crispin Aranda PA-C 09/24/2016 Team pager: [phone]; [phone] after 5pm [facility] Section of Cardiac Surgery * Leonor Henson, STUDENT SERVICES ADVISOR - 09/23/2016 10:48 AM EST Cardiac Surgery Progress Note: ID: [id number] s/p AVR, patch aortoplasty POD#2. PMH of [...] Gas) No results found for: PHART, PO2ART, TXT1XGA Assessment/Plan: s/p AVR, patch aortoplasty POD#2. PMH of Neutropenia, HLD, HTN, Depression, obesity, . Transferred from [facility] yesterday and doing well. Pathway. [...] AM EST Cardiac Surgery Progress Note: ID: [id number] s/p AVR, patch aortoplasty POD#1. PMH of [...] NT, ND, soft. Ext: Moves all extremities. [place], well perfused. Incisions: C/D/I Tubes/Lines/Drains: PIV, leanna, [...] with outpatient services Lalitha Cohen SPTA Pager: [phone] Inpatient Physical Therapy Patient status, treatment interventions, and goals discussed with student. I am in agreement with all details and associated flowsheet rows as documented and was present for all aspects of the patient treatment session. Nerykatrina Jaramillo, [facility] Pager [phone] Problem: Acute Rehab Services Goal & Intervention Plan Goal: Bed Mobility Goal Stand Alone Therapy Goal Outcome: Ongoing (Interventions Implemented as Appropriate) 09/22/16 16109/25/16 09 Bed Mobility Goal Bed Mobility Goal, Time to Achieve 4 days -- Bed Mobility Goal, Activity Type scoot/bridge;supine to sit/sit to supine -- Bed Mobility Goal, [place] Level independent -- Bed Mobility Goal, Additional [...] 4 days -- Gait Training Goal, [place] Level independent -- Gait Training Goal, Distance [...] assist, home with home health Lalitha Cohen [facility] Pager: [phone] Inpatient Physical Therapy Patient status, treatment interventions, and goals discussed with student. I am in agreement with all details and associated flowsheet rows as documented and was present for all aspects of the patient treatment session. Nery Jaramillo, [facility] Pager [phone] Problem: Acute Rehab Services Goal & Intervention Plan Goal: Bed Mobility Goal Stand Alone Therapy Goal Outcome: Ongoing (Interventions Implemented as Appropriate) 09/22/16 16109/23/16 1412 Bed Mobility Goal Bed Mobility Goal, Time to Achieve 4 days -- Bed Mobility Goal, Activity Type scoot/bridge;supine to sit/sit to supine -- Bed Mobility Goal, [place] Level independent -- Bed Mobility Goal, Additional [...] 4 days -- Gait Training Goal, [place] Level independent -- Gait Training Goal, Distance [...] days -- Transfer Training Goal, Activity Type xhw-jy-nxjnc/mwdcq-wk-vuy;ace-lq-zdnpx/onwcx-cw-uup -- Transfer Train Goal, [place] Level independent -- Transfer Training Goal, Additional [...] Another Service: (cardiac rehab) NICOLE HERNANDEZ, PT Pager:[phone] Inpatient Physical Therapy Problem: Acute Rehab Services Goal & Intervention Plan Goal: Bed Mobility Goal Stand Alone Therapy Goal Outcome: Ongoing (Interventions Implemented as Appropriate) 09/22/16 1611 Bed Mobility Goal Bed Mobility Goal, Time to Achieve 4 days Bed Mobility Goal, Activity Type scoot/bridge;supine to sit/sit to supine Bed Mobility Goal, [place] Level independent Bed Mobility Goal, Additional Goal able to abide sternal precautions during transfers Goal: Gait Training Goal Stand Alone Therapy Goal Outcome: Ongoing (Interventions Implemented as Appropriate) 09/22/16 1611 Gait Training Goal Gait Training Goal, Date Established 09/22/16 Gait Training Goal, Time to Achieve 4 days Gait Training Goal, [place] Level independent Gait Training Goal, Distance to Achieve ascend and descends 2 steps independently Goal: Goal Transfer Training Stand Alone Therapy Goal Outcome: Ongoing (Interventions Implemented as Appropriate) 09/22/16 1611 Goal Transfer Training Transfer Training Goal, Time to Achieve 4 days Transfer Training Goal, Activity Type iae-ax-vvvgd/zxyxz-em-wfm;bmi-bs-qmbas/bmtcy-bc-qhl Transfer Train Goal, [place] Level independent Transfer Training Goal, Additional Goal [...] of completing AD's at home, chooses her edqbjd-tq-boh, Martha Thacker (home) for her [facility], 2nd choice in friend, Nitesh Leroy [place], [place] Current Coping/Education/Information Needs: patient sitting up [...] who live close by, [place], and her turpdh-ol-sbk Martha Thacker who she has chosen to be her DPOAH. Also has a friend Nitesh Leroy who lives in [place], [place], also her DPOAH choice. Behavioral Health History: none on file in eDH Substance Use/Abuse: none on file in eDH Other Pertinent/Service Specific Information: none Health/Prescription Coverage: Primary Insurance: [employer] Secondary Insurance: none Prescription Coverage: yes, per patient no issues Preferred Pharmacy: ?? Other: none Primary Care Provider: Deborah Quiroga, STUDENT SERVICES ADVISOR [phone] Patient/Caregiver Goals of Treatment: per medical team recommendations at discharge for CT surgery Potential Needs for Transition of Care: Rehab/SNF: TBD Home Health: TBD DME: no Dialysis: no Community Resources: non3 Transportation: ride home with a friend Other: none Anticipated Barriers to Discharge/Special Considerations: none anticipated at this time Plan: patient will need VNA services at discharge. The patient/tax representative has been provided a list of Home Health Agencies/DME vendors which servetheir preferred geographic area. A letter describing our affiliations was reviewed with them and they were educated about their right to choose where referrals are placed. Patient requests referral to: [facility]. PHONE: [phone] FAX: [phone] Expected date of discharge: Fri/Sat? CM called VNA to confirm referral, talked with VALDO Bunn/intake who stated she was familiar w/patient & would monitor her progress through curaspan. Referral routed to the [employer] for matching with agency/vendor and to provide any required information. A member of the Care Management team will continue to monitor progress, follow for continuity of care and assist with transition of care planning. Amanda Moreno RN Pager: [phone] * Op Note - Alirio Esparza MD - 09/21/2016 12:53 PM EST 09/23/2016 Purnima Thacker 1955 [id number] Preoperative Diagnosis: Symptomatic aortic stenosis Postoperative Diagnosis: Symptomatic aortic stenosis Procedure: Aortic valve replacement: Bovine Pericardial 25 mm Surgeon: Alirio Esparza M.D. Clinical Social Worker: Philip BALL Anesthesia: General endotracheal anesthesia [...] Operative Note Patient Name: Purnima Thacker : [id number] MR#: [id number] Case Date: 09/21/2016 Surgeon: Surgeon(s) and Role: * Alirio sEparza MD - Primary * Nico Palacios PA - Physician Clinical Social Worker Preoperative diagnosis: Postoperative diagnosis: Procedure(s) (LRB): [...] EST Office Visit Hematology and Oncology at [place] [address] [facility] [address] HEMATOLOGY [place] [address] 11/02/2024 12:00 PM EDT Appointment Pulmonology at [place] [address] 11/02/2024 1:00 PM EDT Office Visit Rheumatology at [place] [address] [facility] [place] [address] 03/01/2025 4:15 PM EDT Office Visit Dermatology at [place] [address] [facility] [place] [address] Marek Bonilla MD [address] [facility] [place] [address] Scheduled Orders Name Type Priority Associated Diagnoses [...] IMPLANTABLE DEVICES SCAN 09/26/2016 12:00 AM EST COMMUNICATIONS ELECTRICIAN SUPERVISOR SCAN 09/26/2016 12:00 AM EST POTASSIUM [...] SCAN EXT O RDR/RSLT * SCAN DOC: COMMUNICATIONS ELECTRICIAN SUPERVISOR (09/26/2016 12:00 AM EST) Anatomical Region [...] ORDERABLE S [facility] [place] [address] * (ABNORMAL) Differential, Automated (09/24/2016 9:56 AM EST) Neutrophil % 76.8 % [facility] Neutrophil Absolute 7.79(H) 1.70 - 6.10 x10(3)/mc L [facility] Lymph % 11.1 % [facility] Lymphocytes Abs 1.1 0.9 - 3.2 x10(3)/[facility] LABORATORY Monocyte % 8.5 % [facility] Monocyte Abs 0.9 0.3 - 0.9 x10(3)/[facility] LABORATORY Eos % 0.5 % [facility] Eosinophils Abs 0.0 0.0 - 0.4 x10(3)/[facility] LABORATORY Basophil % 0.2 % [facility] Baso Absolute 0.0 0.0 - 0.1 x10(3)/[facility] LABORATORY Immature Gran % 2.90 % [facility] Comment: Immature granulocytes(IG's)percentage and absolute count will include metamyelocytes, myelocytes, and promyelocytes. Blood smears from CBCs yielding IG's will be scanned manually for concordance. If this scan disagrees with the automated IG or if promyelocytes are noted, a manual differential will be performed. Immature Gran Absolute 0.29(H) 0.00 - 0.04 x10(3)/[facility] LABORATORY Blood specimen (specimen) 09/24/2016 9:56 AM EST 09/24/2016 10:04 AM EST Narrative Resulting Agency Comment Spec In Lab Alirio Esparza MD HEMATOLOGY ORDERABL ES Performing Organization Address City/State/[facility] Co de Phone Number [facility] [place] [address] * (ABNORMAL) Hemogram (09/24/2016 9:56 AM EST) White Blood Cell 10.1(H) 4.0 - 9.5 x10(3)/[facility] LABORATORY Red Blood Cell 2.87(L) 4.00 - 5.21 x10(6)/[facility] LABORATORY Hemoglobin 9.4(L) 11.7 - 15.5 [...] MEDICAL CENTER LABORATORY NRBC% auto 1.1 % [facility] NRBC Absolute 0.110(H) 0.000 - 0.000 x10(3)/mc L [facility] Blood specimen (specimen) 09/24/2016 9:56 AM EST 09/24/2016 10:04 AM EST Narrative Resulting Agency Comment Spec In Lab Alirio Esparza MD HEMATOLOGY ORDERABL ES [facility] [place] [address] * (ABNORMAL) Basic Metabolic Panel (non-fasting) (09/24/2016 [...] the following links into your internet browser. [email or web address] Blood specimen (specimen) 09/24/2016 9:56 AM EST 09/24/2016 10:04 AM EST Narrative Resulting Agency Comment Spec In Lab Alirio Esparza MD CHEMISTRY ORDERABLE S [facility] [place] [address] * XR Chest PA & Lateral (Generic) [...] ORDERABLE S [facility] [place] [address] * POCT Glucose (09/22/2016 8:17 AM EST) Glucose, POC 131 65 - 199 mg/dL [facility] Comment: Supplemental ranges: <140 mg/dL before meals <180 mg/dL all other times of the day Blood specimen (specimen) 09/22/2016 8:17 AM EST 09/22/2016 8:17 AM EST Alirio Esparza MD POINT OF CARE TEST ORDERABLES Performing Organization Address [facility] de Phone Number [facility] [place] [address] * POCT Glucose (09/22/2016 4:01 AM EST) Glucose, POC 135 65 - 199 mg/dL [facility] Comment: Supplemental ranges: <140 mg/dL before meals <180 mg/dL all other times of the day Blood specimen (specimen) 09/22/2016 4:01 AM EST 09/22/2016 4:01 AM EST Alirio Esparza MD POINT OF CARE TEST ORDERABLES Performing Organization Address [facility] de Phone Number [facility] [place] [address] * Scan, Peripheral Blood (09/22/2016 4:00 AM EST) Pathologist [facility] Plat estimate Normal [facility] RBC Morphology Abnormal [facility] Macrocyte 1-5 /HPF [facility] Plat, Giant Less than 1 /HPF [facility] Blood specimen (specimen) 09/22/2016 4:00 AM EST 09/22/2016 4:34 AM EST Narrative Resulting Agency Comment Spec In Lab Alirio Esparza MD HEMATOLOGY ORDERABL ES Performing Organization Address [facility] Co de Phone Number [facility] [place] [address] * Electrolytes panel (09/22/2016 4:00 AM EST) Pathologist [facility] Sodium 145 135 - 145 mmol/L [facility] [...] ORDERABLE S [facility] [place] [address] * (ABNORMAL) Differential, Automated (09/22/2016 4:00 AM EST) Neutrophil % 70.9 % [facility] Neutrophil Absolute 5.33 1.70 - 6.10 x10(3)/mc L [facility] Lymph % 9.1 % [facility] Lymphocytes Abs 0.7(L) 0.9 - 3.2 x10(3)/mc L [facility] Monocyte % 18.0 % [facility] Monocyte Abs 1.4(H) 0.3 - 0.9 x10(3)/mc L [facility] Eos % 0.0 % [facility] Eosinophils Abs 0.0 0.0 - 0.4 x10(3)/mc L [facility] Basophil % 0.1 % [facility] Baso Absolute [...] ORDERABL ES [facility] [place] [address] * (ABNORMAL) Hemogram (09/22/2016 4:00 AM EST) White Blood Cell 7.5 4.0 - 9.5 x10(3)/[facility] LABORATORY Red Blood Cell 2.93(L) 4.00 - 5.21 x10(6)/[facility] LABORATORY Hemoglobin 9.2(L) 11.7 - 15.5 [...] CENTER LABORATORY Platelet 161 145 - 357 x10(3)/[facility] LABORATORY RDW Standard Deviation 44.0 37.0 - 46.0 [facility] LABORAT[facility] RDW coefficient of variation 12.6 11.5 - 14.1 % [facility] Mean Platelet Volume 9.3 7.6 - 12.9 [facility] LABORATORY NRBC% auto 0.3 % [facility] NRBC Absolute 0.020(H) 0.000 - 0.000 x10(3)/ L [facility] Blood specimen (specimen) 09/22/2016 4:00 AM EST 09/22/2016 4:34 AM EST Narrative Resulting Agency Comment Spec In Lab Alirio Esparza MD HEMATOLOGY ORDERABL ES Performing Organization Address [facility] de Phone Number [facility] [place] [address] * (ABNORMAL) Cardiac Enzymes (09/22/2016 4:00 AM EST) Troponin-T 0.13(H) <=0.03 ng/mL [facility] Comment: 0.03 ng/mL: Represents the 99th percentile upper reference limit for normals. >0.03 ng/mL: Elevated cardiac troponin T level indicative of myocardial damage. Diagnosis of acute, evolving or recent NM requires a typical rise and gradual fall [...] consensus document of the Joint Society of Cardiology/[place] College of Cardiology Committee for the redefinition of myocardial infarction. ??Journal of the [place] College of Cardiology 2000; 36: 959-969] Creatine Kinase 338(H) 0 - 160 unit/L [facility] Blood specimen (specimen) 09/22/2016 4:00 AM EST 09/22/2016 4:34 AM EST Narrative Resulting Agency Comment Spec In Lab Alirio Esparza MD CHEMISTRY ORDERABLE S Performing Organization Address [facility] Co de Phone Number [facility] [place] [address] * (ABNORMAL) Glucose, fasting (09/22/2016 4:00 AM [...] of Diabetes Mellitus, Position Statement from the [place] Diabetes Association. ??Diabetes Care, Volume 33, Supplement 1, Aug 2009 Blood specimen (specimen) 09/22/2016 4:00 AM EST 09/22/2016 4:34 AM EST Narrative Resulting Agency Comment Spec In Lab Alirio Esparza MD CHEMISTRY ORDERABLE S [facility] [place] [address] * (ABNORMAL) Creatinine (09/22/2016 4:00 AM EST) [...] the following links into your internet browser. [email or web address] Blood specimen (specimen) 09/22/2016 4:00 AM EST 09/22/2016 4:34 AM EST Narrative Resulting Agency Comment Spec In Lab Alirio Esparza MD CHEMISTRY ORDERABLE S Performing Organization Address [facility] Co de Phone Number [facility] [place] [address] * BUN (09/22/2016 4:00 AM EST) Blood Urea Nitrogen 10 8 - 18 mg/dL [facility] Blood specimen (specimen) 09/22/2016 4:00 AM EST 09/22/2016 4:34 AM EST Narrative Resulting Agency Comment Spec In Lab Alirio Esparza MD CHEMISTRY ORDERABLE S Performing Organization Address [facility] Phone Number [facility] [place] [address] * POCT Glucose (09/21/2016 9:59 PM EST) Glucose, POC 146 65 - 199 mg/dL [facility] Comment: Supplemental ranges: <140 mg/dL before meals <180 mg/dL all other times of the day Blood specimen (specimen) 09/21/2016 9:59 PM EST 09/21/2016 9:59 PM EST Alirio Esparza MD POINT OF CARE TEST ORDERABLES Performing Organization Address [facility] Co de Phone Number [facility] [place] [address] * POCT Glucose (09/21/2016 7:26 PM EST) Glucose, POC 152 65 - 199 mg/dL [facility] Comment: Supplemental ranges: <140 mg/dL before meals <180 mg/dL all other times of the day Blood specimen (specimen) 09/21/2016 7:26 PM EST 09/21/2016 7:26 PM EST Alirio Esparza MD POINT OF CARE TEST ORDERABLES Performing Organization Address [facility] Co de Phone Number [facility] [place] [address] * POCT Glucose (09/21/2016 6:00 PM EST) Glucose, POC 146 65 - 199 mg/dL [facility] Comment: Supplemental ranges: <140 mg/dL before meals <180 mg/dL all other times of the day Blood specimen (specimen) 09/21/2016 6:00 PM EST 09/21/2016 6:00 PM EST Alirio Esparza MD POINT OF CARE TEST ORDERABLES [facility] [place] [address] * (ABNORMAL) BLOOD GAS 2 ARTERIAL (09/21/2016 4:42 PM EST) [facility] pH, Arterial 7.35(L) 7.35 - 7.45 [facility] [...] TEST ORDERABLES Performing Organization Address City/[facility]/ZIP Co de Phone Number [facility] [place] [address] * POCT Glucose (09/21/2016 4:07 PM EST) Glucose, POC 150 65 - 199 mg/dL [facility] Comment: Supplemental ranges: <140 mg/dL before meals <180 mg/dL all other times of the day Blood specimen (specimen) 09/21/2016 4:07 PM EST 09/21/2016 4:07 PM EST Alirio Esparza MD POINT OF CARE TEST ORDERABLES Performing Organization Address City/[facility]/ZIP Co de Phone Number [facility] [place] [address] * (ABNORMAL) Hemoglobin (09/21/2016 4:05 PM EST) Hemoglobin 9.9(L) 11.7 - 15.5 gm/dL [facility] Blood specimen (specimen) 09/21/2016 4:05 PM EST 09/21/2016 4:20 PM EST Narrative Resulting Agency Comment Spec In Lab Alirio Esparza MD HEMATOLOGY ORDERABL ES Performing Organization Address [facility] de Phone Number [facility] [place] [address] * Potassium (09/21/2016 4:05 PM EST) Potassium [...] MD CHEMISTRY ORDERABLE S Performing Organization Address [facility] de Phone Number [facility] [place] [address] * POCT Glucose (09/21/2016 2:52 PM EST) Glucose, POC 117 65 - 199 mg/dL [facility] Comment: Supplemental ranges: <140 mg/dL before meals <180 mg/dL all other times of the day Blood specimen (specimen) 09/21/2016 2:52 PM EST 09/21/2016 2:52 PM EST Alirio Esparza MD POINT OF CARE TEST ORDERABLES Performing Organization Address [facility] Co de Phone Number [facility] [place] [address] * POCT Glucose (09/21/2016 1:51 PM EST) Glucose, POC 108 65 - 199 mg/dL [facility] Comment: Supplemental ranges: <140 mg/dL before meals <180 mg/dL all other times of the day Blood specimen (specimen) 09/21/2016 1:51 PM EST 09/21/2016 1:51 PM EST Alirio Esparza MD POINT OF CARE TEST ORDERABLES Performing Organization Address City/[facility]/ZIP Co de Phone Number [facility] [place] [address] * POCT Glucose (09/21/2016 12:54 PM EST) Glucose, POC 128 65 - 199 mg/dL [facility] Comment: Supplemental ranges: <140 mg/dL before meals <180 mg/dL all other times of the day Blood specimen (specimen) 09/21/2016 12:54 PM EST 09/21/2016 12:54 PM EST Alirio Esparza MD POINT OF CARE TEST ORDERABLES Performing Organization Address [facility] Co de Phone Number [facility] [place] [address] * EKG 12 Lead (09/21/2016 12:26 PM EST) Ventricular rate 87 BPM MUSE SYSTEM Atrial Rate 87 BPM MUSE SYSTEM P-R Interval 256 ms MUSE SYSTEM QRS Duration 90 ms MUSE SYSTEM Q-T Interval 406 ms MUSE SYSTEM QTC Calculated (Bezet) 488 ms MUSE SYSTEM Calculated P Orchard 24 degrees MUSE SYSTEM Calculated R Orchard 21 degrees MUSE SYSTEM Calculated T Orchard -5 degrees MUSE SYSTEM INTERPRETATION Sinus rhythm with 1st degree A-V block Nonspecific T wave abnormality Prolonged QT Abnormal ECG When compared with ECG of 19-MAY-2016 11:43, SC interval has increased T wave inversion now evident in inferior and midanterior leads Confirmed by MD FRANKLYN, MARLEN ([id number]) on 09/21/2016 1:40:59 PM MUSE SYSTEM 09/21/2016 12:2 6 PM EST 09/21/2016 1:40 PM EST Alirio Esparza MD ECG ORDERABLES Performing Organization Address City/[facility] Co de Phone [...] course of the esophagus and below the obmrz-dw-hfof. There is a right IJ PA catheter [...] the course of theesophagus and below the bponv-je-wfan. There is a right IJ PA catheter [...] TEST ORDERABLES [facility] [place] [address] * (ABNORMAL) BLOOD GAS 2 ARTERIAL (09/21/2016 [...] [facility] Temp Art 36.7 Celsius [facility] Blood specimen (specimen) 09/21/2016 10:54 AM EST 09/21/2016 10:54 AM EST Alirio Esparza MD POINT OF CARE TEST ORDERABLES Performing Organization Address [facility]/ZIP Co de Phone Number [facility] [place] [address] * Thrombin time (09/21/2016 10:50 AM EST) [...] Address [facility] Co de Phone Number [facility] [place] [address] * Fibrinogen (09/21/2016 10:50 AM EST) Fibrinogen [...] Address [facility]/ZIP Co de Phone Number [facility] [place] [address] * APTT (09/21/2016 10:50 AM EST) Partial [...] MD HEMATOLOGY ORDERABLE S Performing Organization Address City/[facility]/ZIP Co de Phone Number [facility] [place] [address] * (ABNORMAL) Prothrombin Time (09/21/2016 10:50 AM [...] ORDERABLE S [facility] [place] [address] * (ABNORMAL) Hemogram (09/21/2016 10:50 AM EST) [...] [facility] NRBC% auto 0.1 % [facility] NRBC Absolute 0.020(H) 0.000 - 0.000 x10(3)/mc L [facility] Blood specimen (specimen) 09/21/2016 10:50 AM EST 09/21/2016 10:56 AM EST Narrative Resulting Agency Comment Spec In Lab Luis Enrique Quarles MD HEMATOLOGY ORDERABLE S [facility] [place] [address] * Prepare Platelets, Apheresis (09/21/2016 10:30 AM EST) Dispensed? Yes [facility] Blood specimen (specimen) 09/21/2016 10:30 AM EST 09/21/2016 10:28 AM EST Alirio Esparza MD BLOOD BANK PRODUCT ORDERABLES [facility] [place] [address] * (ABNORMAL) BLOOD GAS 2 ARTERIAL (09/21/2016 10:05 AM EST) pH, Arterial 7.33(L) 7.35 - 7.45 [facility] PCO2, Arterial 54(Critic al) 35 - 45 mmHg [facility] Comment:Noted by senior instrumentation engineer. PO2, Arterial 218(H) 85 - [...] [facility] Comment: Noted by senior instrumentation engineer. Please note: Patients with WBC [...] TEST ORDERABLES [facility] [place] [place] [address] * (ABNORMAL) BLOOD GAS 2 ARTERIAL (09/21/2016 9:44 AM EST) pH, Arterial 7.22(Criti gabrielle) 7.35 - 7.45 [facility] Comment:Noted by senior instrumentation engineer. PCO2, Arterial 70(Critica l) 35 - 45 mmHg [facility] Comment:Noted by senior instrumentation engineer. PO2, Arterial 224(H) 85 - [...] Address [facility] Co de Phone Number [facility] [place] [place] [address] * (ABNORMAL) Hemoglobin (09/21/2016 9:42 AM EST) Hemoglobin 7.2(L) 11.7 - 15.5 gm/dL [facility] Blood specimen (specimen) 09/21/2016 9:42 AM EST 09/21/2016 9:51 AM EST Narrative Resulting Agency Comment Spec In Lab Alirio Esparza MD HEMATOLOGY ORDERABL ES Performing Organization Address [facility] Co de Phone Number [facility] [place] [address] * Platelet count (09/21/2016 9:42 AM EST) Platelet 159 145 - 357 x10(3)/mc L [facility] Immature Plt % 1.6 0.0 - 7.4 % [facility] Comment: Limitation of the Immature Platelet Fraction (IPF)-May be less reliable when the platelet count is less than 66j410/uL due to statistical imprecision. The IPF value [...] in a decreased state of production. References: [employer] The Clinical Value of the Immature Platelet Fraction (IPF) in Cell Recovery Document Number 10-1143 12/2010 [employer] The Role of the Immature Platelet Fraction (IPF) in the Differential Diagnosis of Thrombocytopenia, Document MKT-10-1209 V05 P012/13 Blood specimen (specimen) 09/21/2016 9:42 AM EST 09/21/2016 9:51 AM EST Narrative Resulting Agency Comment Spec In Lab Alirio Esparza MD HEMATOLOGY ORDERABL ES [facility] [place] [address] * (ABNORMAL) Hematocrit (09/21/2016 9:42 AM EST) [facility] Hematocrit 21.6(L) 35.7 - 45.8 % [facility] Comment: This result has been called to MICHELLE ALEJANDRE by Serjio Frazier on 09 21 2016 at 0957, and has been read back. Blood specimen (specimen) 09/21/2016 9:42 AM EST 09/21/2016 9:51 AM EST Narrative Resulting Agency Comment Spec In Lab Alirio Esparza MD HEMATOLOGY ORDERABL ES [facility] [place] [address] * Fibrinogen (09/21/2016 9:42 AM EST) [facility] Fibrinogen 219 180 - 510 mg/dL [facility] [...] ORDERABL ES [facility] [place] [address] * (ABNORMAL) BLOOD GAS 2 ARTERIAL (09/21/2016 [...] TEST ORDERABLES [facility] [place] [address] * Surgical Pathology Report (09/21/2016 9:09 AM EST) Final Diagnosis [id number] ?Location: The signing pathologist has (i) examined [...] Esparza MD PATHOLOGY/CYTOLOGY ORDERABLES Performing Organization Address City/[facility]/[place] [address] * Specimen to Pathology (surgical or derm) (09/21/2016 9:09 AM EST) AP Specimen 09/21/2016 9:09 AM EST 09/21/2016 9:09 AM EST Narrative [facility] - 09/21/2016 9:09 AM EST Specimen requisition ordered. ??Separate Pathology report to follow Alirio Esparza MD PATHOLOGY/CYTOLOGY ORDERABLES Performing Organization Address City/[facility]/[place] [address] * (ABNORMAL) BLOOD GAS 2 ARTERIAL (09/21/2016 [...] OF CARE TEST ORDERABLES Performing Organization Address City/State/[facility] Co de Phone Number [facility] [place] [address] * (ABNORMAL) BLOOD GAS 2 ARTERIAL (09/21/2016 [...] [facility] Temp Art 35.6 Celsius [facility] Blood specimen (specimen) 09/21/2016 8:18 AM EST 09/21/2016 8:18 AM EST Alirio Esparza MD POINT OF CARE TEST ORDERABLES [facility] [place] [place] [address] * Prepare RBC (09/21/2016 7:05 AM EST) Dispensed? Yes [facility] Blood specimen (specimen) 09/21/2016 7:05 AM EST 09/21/2016 7:02 AM EST Alirio Esparza MD BLOOD BANK PRODUCT ORDERABLES [facility] [place] [address] * POCT Glucose (09/21/2016 6:42 AM EST) Glucose, POC 104 65 - 199 mg/dL [facility] Comment: Supplemental ranges: <140 mg/dL before meals <180 mg/dL all other times of the day Blood specimen (specimen) 09/21/2016 6:42 AM EST 09/21/2016 6:42 AM EST Alirio Esparza MD POINT OF CARE TEST ORDERABLES Performing Organization Address City/[facility]/ZIP Co de Phone Number [facility] [place] [address] documented in this encounter Visit Diagnoses Diagnosis [...] dose on Wed09/21/16 at 1230, Until Discontinued, Parnell teeth, Routine Given 09/25/2016 9:40 AM EST [...] if phenyleprine and/or vasopressin ineffective.Call pager # [phone] if initiated., Routine Rate/Dose Change 09/21/2016 2:27 [...] 2.0 L/min/M2. Maximum volume 2 L. Call powerhouse mechanic supervisor for additional fluid orders: pager #[phone]. Rate/Dose Verify 09/22/2016 10:00 AM EST 10 [...] dose on Wed09/21/16 at 1230, Until Discontinued, Parnell teeth, Routine 0900 (Not Given - Provider: [...] Whitfield, VALDO) 0941 (Given - Provider: Joselyn Caceers, VALDO) pantoprazole (PROTONIX) injection 40 mg(Linked Group [...] Alie Whitfield RN) 0300 (Given - Provider: lAie Whitfield RN - Comment: given earlier in [...] Routine documented in this encounter Care Teams Greenskeeper Supervisor Relationship Specialty Start Date End Date Deborah Quiroga APRN PCP - General Family Medicine 03/24/16 02/04/23 documented as of this encounter
--- OUTSIDE RECORDS SUMMARY | 2024-06-13 14:14 | XMS_ITS | Encounter Summary ---
Author Organization [facility] [place] [address] Care Team Providers Care Clinical Dental Technician Name Role Phone Winter Quiroga APRN Primary Care Provider [phone]- [phone] Encounter Details Date Type Department Care Team (Late st Contact Info) Description 06/05/2021 Interpretation Only [address] [phone] Winter Quiroga APRN [address] [phone] Social History Tobacco Use Types Packs/Day Years [...] EST Office Visit Hematology [place] [phone] Markel Borjas MD [facility] [address] [place] [address] 11/02/2024 12:00 PM EDT Appointment [place] [phone] 11/02/2024 1:00 PM EDT Office [place] [address] Magdalena Peralta MD [facility] [place] [address] 03/01/2025 4:15 PM EDT Office Visit Dermatology at [place] [address] [place] [address] Marek Bonilla MD [address] [place] [address] documented as of this encounter Procedures Procedure Name Priority Date/Time Associated Diagnosis Comments MAMMO SCREENING CAD BILATERAL Routine 06/05/2021 11:42 AM EDT documented in this encounter Results * Mammo Screening Cad Bilateral (06/05/2021 11:42 AM EDT) PT CLASS O RAD ADMITDTTM RAD PT RAD INFO [id number]^EV ERETT^WINTER^E RAD EXAM DESC MADDSC^SCREEN MAMMO BL [...] signed by: Rocael Villatoro MD, [facility] ([phone]), at 06/05/2021 1:27 PM Narrative 06/05/2021 1:27 [...] signed by: Rocael Villatoro MD, [facility]([phone]), at 06/05/2021 1:27 PM Winter Quiroga APRN IMG MAMMO ORDERABLE S documented in this encounter Visit Diagnoses Not on filedocumented in this encounter Care Teams Clinical Dental Technician Relationship Specialty Start Date End Date Winter Quiroga APRN PCP - General Family Medicine 03/24/16 02/04/23 documented as of this encounter
--- OUTSIDE RECORDS SUMMARY | 2024-06-13 14:14 | XMS_ITS | Encounter Summary ---
Author Organization [facility] Address [facility] [place] [address] Care Team Providers Care Rail Splitter Name Role Phone Deborah Quiroga APRN Primary Care Provider [phone] Encounter Details Date Type Department Care Team (Late st Contact Info) Description 03/01/2020 11:30 AM EDT Office Visit Hematology [place] [phone] Patrick Borjas MD [facility] [address] [place] [address] Neutropenia, unspecified type Social History Tobacco Use [...] 11:30 AM EDT Hematology Outpatient Clinic [facility] Hematology Outpatient Consult Note CC: [...] TOUCH PREP, CLOT SECTION, CORE ??BIOPSY); [OSR# [id number], COLLECTED 06/23/2016, 19 SLIDES]: ?1. 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 Extremities: No edema. Labs: Hgb= 12.4 Ztzt=735 ANC= 2.5 Imaging As above - reviewed [...] EST Office Visit [place]ology [place] [address] Patrick Borjas MD [facility] [address] [place] [address] 11/02/2024 12:00 PM EDT [place]oint[place] [address] 11/02/2024 1:00 PM EDT Office [place] [address] Magdalena Peralta MD [facility] [place] [address] 03/01/2025 4:15 PM EDT Office Visit Dermatology at [place] [address] [place] [phone] Marek Bonilla MD [address], [place] [address] documented as of this encounter Visit Diagnoses Diagnosis Neutropenia, unspecified type documented in this encounter Care Teams Rail Splitter Relationship Specialty Start Date End Date Deborah Quiroga APRN PCP - General Family Medicine 03/24/16 02/04/23 documented as of this encounter
--- OUTSIDE RECORDS SUMMARY | 2024-06-13 14:14 | XMS_ITS | Encounter Summary ---
[place] [address] Care Team Providers Care Geospatial Systems Integrator Name Role Phone Ashley Quirogazac Shields APRN Primary Care Provider [phone] Reason for Visit * Reason Onset Date Comments Results 12/03/2016 Encounter Details Date Type Department Care Team (Late st Contact Info) Description 12/03/2016 Telephone Hematology [place] [address] Yudith Valentine RN Results Social [...] the full results to this office for inoculator notified DR Borjas of above results documented in this encounter Plan of Treatment Upcoming Encounters Date Type Department Care Team (Late st Contact Info) Description 06/23/2024 2:00 PM EST Office Visit Hematology [place] [address] Markel Borjas MD [facility] [address] HEMATOLOGY [place] [address] 11/02/2024 12:00 PM EDT Appointment Pulmonology at [place] [phone] 11/02/2024 1:00 PM EDT Office [place] [address] Magdalena Peralta MD [facility] [place] [address] 03/01/2025 4:15 PM EDT Office Visit Dermatology at [place] [address] [place] [phone] Marek Bonilla MD [address], [place] [address] documented as of this encounter Visit Diagnoses Not on filedocumented in this encounter Care Teams Geospatial Systems Integrator Relationship Specialty Start Date End Date Deborah Quiroga APRN PCP - General Family Medicine 03/24/16 02/04/23 documented as of this encounter
--- OUTSIDE RECORDS SUMMARY | 2024-06-13 14:14 | XMS_ITS | Encounter Summary ---
Author Organization [facility] Address [facility] [place] [address] Care Team Providers Care Industrial Relations Commissioner Name Role Phone Ashley Quirogazac Shields APRN Primary Care Provider [phone]- [phone] Encounter Details Date Type Department Care Team (Late st Contact Info) Description 02/06/2020 Orders Only Hematology [place] [phone] Markel Borjas MD [facility] [place]ATOLOG[place] [address] Neutropenia, unspecified type Social History Tobacco Use [...] Visit Hematology [place] [phone] Markel Borjas MD [facility] [place]ATOLOG[place] [address] 11/02/2024 12:00 PM EDT Appoint[place] [address] 11/02/2024 1:00 PM EDT Office [place] [address] Magdalena Peralta MD [facility] [place] [address] 03/01/2025 4:15 PM EDT Office Visit Dermatology at [place] [address] [place] [phone] Marek Bonilla MD [address] [place] [address] documented as of this encounter Visit Diagnoses Diagnosis Neutropenia, unspecified type documented in this encounter Care Teams Industrial Relations Commissioner Relationship Specialty Start Date End Date Deborah Quiroga APRN PCP - General Family Medicine 03/24/16 02/04/23 documented as of this encounter
--- OUTSIDE RECORDS SUMMARY | 2024-06-13 14:14 | XMS_ITS | Encounter Summary ---
Author [place] [address] Care Team Providers Care Rehabilitation Worker Name Role Phone Junaid Deborah Shields APRN Primary Care Provider [phone] Encounter Details Date Type Department Care Team (Late st Contact Info) Description 10/20/2016 11:20 AM EDT Office Visit [place] [phone] Alirio Esparza MD S/P AVR Social History [...] of her postoperative tests done at [facility]. Her echo shows a well-seated valve. Her EF, for some reason, was read as in the 45% to 50% range. She had a normal EF to start. I think that will need to be repeated at [facility]. She has no perivalve leak. Her mean [...] should continue to see Dr. Burrell, her stone layout marker at [facility]. cc: Dr. Burrell documented in this encounter Plan of Treatment Upcoming Encounters Date Type Department Care Team (Late st Contact Info) Description 06/23/2024 2:00 PM EST Office Visit Hematology [place] [address] Markel Borjas MD [facility] [place]ATOLOG[place] [address] 11/02/2024 12:00 PM EDT Appointment [place] [address] 11/02/2024 1:00 PM EDT Office Visit [place] [address] Magdalena Peralta MD [facility] [place] [address] 03/01/2025 4:15 PM EDT Office Visit Dermatology at [place] [address] [facility] [place] [phone] Marek Bonilla MD [address] [place] [address] documented as of this encounter Visit Diagnoses Diagnosis S/P AVR Heart valve replaced by other means documented in this encounter Care Teams Rehabilitation Worker Relationship Specialty Start Date End Date Deborah Quiroga APRN PCP - General Family Medicine 03/24/16 02/04/23 documented as of this encounter
--- OUTSIDE RECORDS SUMMARY | 2024-06-13 14:14 | XMS_ITS | Encounter Summary ---
[place] [address] Care Team Providers Care Veneer Drier Name Role Phone Ashley Quirogan Cornelius ANURAG Primary Care Provider +1 [phone] Reason for Visit * Reason Onset Date Comments Medical Care Coordination 07/27/2017 Encounter Details Date Type Department Care Team (Late st Contact Info) Description 07/27/2017 Telephone Hematology [place] [address] Alexandrea Greenwood RN Medical Care Coordination Social [...] 12:25 PM EST Message received from secretary to board of commissioners: Injection/Infusion Referral Call placed to [facility] @ [phone] Spoke w/ HOUSE BUILDER Services to be provided for pt are: CBC/CMP DONE Q6 MONTHS X2 STARTING NOVEMBER 2017 TECH confirmed they would provide services to pt - I CALLED PT, LM. Pt orders faxed to [phone] documented in this encounter Plan of Treatment Upcoming Encounters Date Type Department Care Team (Late st Contact Info) Description 06/23/2024 2:00 PM EST Office Visit Hematology [place] [address] Markel Borjas MD [facility] [address] [place] [address] 11/02/2024 12:00 PM EDT Appointment Pulmonology at [place] [address] 11/02/2024 1:00 PM EDT Office Visit Rheumatology at [place] [address] Magdalena Peralta MD [facility] [place] [address] 03/01/2025 4:15 PM EDT Office Visit Dermatology at [place] [address] [place] [address] Marek Bonilla MD [address], [place] [address] documented as of this encounter Visit Diagnoses Not on filedocumented in this encounter Care Teams Veneer Drier Relationship Specialty Start Date End Date Deborah Quiroga APRN PCP - General Family Medicine 03/24/16 02/04/23 documented as of this encounter
--- OUTSIDE RECORDS SUMMARY | 2024-06-13 14:14 | XMS_ITS | Encounter Summary ---
Author Organization [facility] Address [facility] [place] [address] Care Team Providers Care Wallpaper Printer Name Role Phone Ashely Quirogazac Shields APRN Primary Care Provider +1 [phone] Encounter Details Date Type Department Care Team (Late st Contact Info) Description 01/13/2021 Refill Dermatology at [address] [address] Taylor Malone, TOW OPERATOR Social History Tobacco Use Types Packs/Day [...] Hematology [place] [address] Markel Borjas MD [facility] [address] HEMATOLOGY [place] [address] 11/02/2024 12:00 PM EDT Appointment [place] [address] 11/02/2024 1:00 PM EDT Office [place] [address] Magdalena Peralta MD [facility] [place] [address] 03/01/2025 4:15 PM EDT Office Visit Dermatology at [place] [address] [place] [address] Marek Bonilla MD [address], [place] [address] documented as of this encounter Visit Diagnoses Not on filedocumented in this encounter Care Teams Wallpaper Printer Relationship Specialty Start Date End Date Deborah Quiroga APRN PCP - General Family Medicine 03/24/16 02/04/23 documented as of this encounter
--- OUTSIDE RECORDS SUMMARY | 2024-06-13 14:14 | XMS_ITS | Encounter Summary ---
[place] [address] Care Team Providers Care Loan Broker Name Role Phone Junaid Deborah Shields APRN Primary Care Provider +[phone] Reason for Visit * Reason Comments Follow-up Encounter Details Date Type Department Care Team (Late st Contact Info) Description 01/10/2021 4:30 PM EDT Office Visit Dermatology at [place] [address] [place] [phone] Marek Bonilla MD [address] [facility], [place] DERMATOLOGY [place], [place] [phone] Rosacea Social History Tobacco Use Types Packs/Day [...] cutaneous and ocular 2. Previously told by tip cementer that she had corneal tears from her [...] 3 refills. Will call this in her [facility] in [place] 3. Continue metronidazole 0.75% gel applying once [...] Office Visit Hematology [place] [address] Markel Borjas MD [facility] [address] [place] [address] 11/02/2024 12:00 PM EDT Appointment [place] [address] 11/02/2024 1:00 PM EDT Office [place] [address] Magdalena Peralta MD [facility] [address] 03/01/2025 4:15 PM EDT Office Visit Dermatology at [place] [address] [place] [address] Marek Bonilla MD [address], [place] [address] documented as of this encounter Visit Diagnoses Diagnosis Rosacea documented in this encounter Care Teams Loan Broker Relationship Specialty Start Date End Date Deborah Quiroga APRN PCP - General Family Medicine 03/24/16 02/04/23 documented as of this encounter
--- OUTSIDE RECORDS SUMMARY | 2024-06-13 14:14 | XMS_ITS | Encounter Summary ---
Author Organization [facility] [place] [address] Care Team Providers Care Staple Cutter Name Role Phone Ashley Quirogan Sylvia ANURAG Primary Care Provider [phone] Reason for Visit * Reason Comments Skin Check Encounter Details Date Type Department Care Team (Late st Contact Info) Description 11/11/2020 10:45 AM EDT Office Visit Dermatology at [address] [place] [address] Marek Bonilla MD [address] [facility], [address] DERMATOLOGY [place], [place] [phone] Rosacea; Acrochordon Social History Tobacco Use Types [...] Discussed the possibility of getting this through [address] or from the [facility] if necessary. She has not yet [...] Hematology [place] [address] Markel Borjas MD [facility] [address] HEMATOLOGY [place] [address] 11/02/2024 12:00 PM EDT Appointment [place] [address] 11/02/2024 1:00 PM EDT Office [place] [address] Magdalena Peralta MD [facility] [place] [address] 03/01/2025 4:15 PM EDT Office Visit Dermatology at [place] [address] [facility] [address] [place] [address] Marek Bnoilla MD [address], [place] [address] documented as of this encounter Visit Diagnoses Diagnosis Rosacea Acrochordon Unspecified hypertrophic and atrophic condition of skin documented in this encounter Care Teams Staple Cutter Relationship Specialty Start Date End Date Deborah Quiroga, COKE INSPECTOR PCP - General Family Medicine 03/24/16 02/04/23 documented as of this encounter
--- OUTSIDE RECORDS SUMMARY | 2024-06-13 14:14 | XMS_ITS | Encounter Summary ---
Author Organization [facility] Address [facility] Erika becerra [place] [id number] Care Team Providers Care Pesticide Use Medical Coordinator Name Role Phone Ashley Quirogan Cornelius ANURAG Primary Care Provider [phone] Encounter Details Date Type Department Care Team (Late st Contact Info) Description 12/04/2016 External Results Hematology and Oncology at [place] [phone] Teresa Dodson RN Social History Tobacco Use [...] EST Office Visit Hematology and Oncology at [place] [phone] Markel Borjas MD [facility] [place] [address] 11/02/2024 12:00 PM EDT Appointment Pulmonology at [place] [phone] 11/02/2024 1:00 PM EDT Office Visit Rheumatology at [place] [phone] Magdalena Peralta MD [facility] [place] [address] 03/01/2025 4:15 PM EDT Office Visit Dermatology at [place] [address] [place] [address] Marek Bonilla MD [address], [place] [address] documented as of this encounter Procedures Procedure Name Priority Date/Time Associated Diagnosis Comments CBC (WITH DIFF) Routine 12/03/2016 11:35 AM EDT COMPREHENSIVE METABOLIC PANEL Routine 12/03/2016 11:35 AM EDT documented in this encounter Results * (ABNORMAL) Comprehensive metabolic panel (non-fasting) (12/03/2016 11:35 AM EDT) Glucose 85(Director Of Strategic Initiatives al Lab) Blood Urea Nitrogen 11(Director Of Strategic Initiatives al Lab) Creatinine 0.93(Exte rnal Lab) Sodium 140(Exter nal Lab) Potassium 4.2(Exter nal Lab) Chloride 104(Exter nal Lab) Calcium 10.0(Exte rnal Lab) Protein, Total 8.1(Exter nal Lab) Albumin 3.5(Exter nal Lab) Bilirubin, Total 0.25(Exte rnal Lab) Alkaline Phosphatase 96(Director Of Strategic Initiatives al Lab) Aspartate Aminotransferase 18(Director Of Strategic Initiatives al Lab) Alanine Aminotransferase 21(Director Of Strategic Initiatives al Lab) Blood specimen (specimen) 12/03/2016 11:35 AM EDT Historical Provider CHEMISTRY ORDERAB LES * (ABNORMAL) CBC (with Diff) (12/03/2016 11:35 AM EDT) White Blood Cell 1.61(EXTER NAL/ABN) 4.4 - 10.8 Hemoglobin 13.0(Exter nal Lab) Hematocrit 39.8(Exter nal Lab) Platelet 248(Director Of Strategic Initiatives al Lab) Neutrophil Absolute (ANC) - Automated 0.5(COAT FELLER AL/ABN) Blood specimen (specimen) 12/03/2016 11:35 AM EDT Historical Provider HEMATOLOGY ORDERA BLES documented in this encounter Visit Diagnoses Not on filedocumented in this encounter Care Teams Pesticide Use Medical Coordinator Relationship Specialty Start Date End Date Deborah Quiroga, SILVER WRAPPER PCP - General Family Medicine 03/24/16 02/04/23 documented as of this encounter
--- OUTSIDE RECORDS SUMMARY | 2024-06-13 14:14 | XMS_ITS | Encounter Summary ---
Author Organization [facility] Address [facility] [place] [address] Care Team Providers Care Animal Physiology Teacher Name Role Phone Ashley Quirogazac Shields APRN Primary Care Provider [phone] [phone] Encounter Details Date Type Department Care Team (Late st Contact Info) Description 11/11/2020 Refill Dermatology at [address] [phone] Taylor Malone, KINDERGARTNERS HELPER Social History Tobacco Use Types Packs/Day [...] Visit Hematology [place] [address] Markel Borjas MD [facility] [place] [address] 11/02/2024 12:00 PM EDT Appointment [place] [address] 11/02/2024 1:00 PM EDT Office [place] [address] Magdalena Peralta MD [facility] [place] [address] 03/01/2025 4:15 PM EDT Office Visit Dermatology at [place] [address] [place] [address] Marek Bonilla MD [address], [place] [address] documented as of this encounter Visit Diagnoses Not on filedocumented in this encounter Care Teams Animal Physiology Teacher Relationship Specialty Start Date End Date Deborah Quiroga APRN PCP - General Family Medicine 03/24/16 02/04/23 documented as of this encounter
--- OUTSIDE RECORDS SUMMARY | 2024-06-13 14:14 | XMS_ITS | Encounter Summary ---
Author Organization [facility] Address [facility] [place] [address] Care Team Providers Care Wage And Salary Administrator Name Role Phone Junaid Deborah Shields APRN Primary Care Provider [phone] [phone] Encounter Details Date Type Department Care Team (Late st Contact Info) Description 03/04/2020 External Results Hematology and Oncology at [place] [phone] TherBhumi villela Social History Tobacco Use Types [...] EST Office Visit Hematology and Oncology at [place] [phone] Markel Borjas MD [facility] [place] [address] 11/02/2024 12:00 PM EDT Appointment Pulmonology at [place] [phone] 11/02/2024 1:00 PM EDT Office Visit Rheumatology at [place] [phone] Magdalena Peralta MD [facility] [place] [address] 03/01/2025 4:15 PM EDT Office Visit Dermatology at [place] [address] [place] [address] Marek Bonilla MD [address], [place] [address] documented as of this encounter Procedures Procedure [...] on filedocumented in this encounter Care Teams Wage And Salary Administrator Relationship Specialty Start Date End Date Deborah Quiroga APRN PCP - General Family Medicine 03/24/16 02/04/23 documented as of this encounter
--- OUTSIDE RECORDS SUMMARY | 2024-06-13 14:14 | XMS_ITS | Encounter Summary ---
Author Organization [facility] Address [facility] [place] [address] Care Team Providers Care Water Trainer Name Role Phone Deborah Quiroga APRN Primary Care Provider Encounter Details Date Type Department Care Team (Late st Contact Info) Description 06/18/2017 11:00 AM EST Office Visit Hematology [place] [address] Markel Borjas MD [facility] DR HEMATOLOGY [place] [address] Neutropenia, unspecified type Social History Tobacco Use [...] 11:00 AM EST Hematology Outpatient Clinic [facility] Hematology Outpatient Consult Note CC: [...] TOUCH PREP, CLOT SECTION, CORE ??BIOPSY); [OSR# [id number], COLLECTED 06/23/2016, 19 SLIDES]: ?1. ??Normocellular marrow [...] a clonal lymphoproliferative or myeloproliferative disorder (OSR# [id number]) Chromosome analysis on the marrow aspirate revealed [...] working the same job and participating in [employer] patients. Past Medical/Surgical History: 1. Leukopenia -element of neutropenia, as noted above 2. Aortic Stenosis -severe -AVR surgery 3. Hypercholesterolemia 4. Depression 5. Hypertension 6. 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 Extremities: No edema. Labs: Hgb= 13 Kdkr=477 ANC= 0.6 Imaging As above - reviewed [...] EST Office Visit Hematology and Oncology at [place] [phone] Markel Borjas MD [facility] [address] [place] [address] 11/02/2024 12:00 PM EDT Appointment Pulmonology at [place] [address] 11/02/2024 1:00 PM EDT Office Visit Rheumatology at [place] [address] Magdalena Peralta MD [facility] [place] [address] 03/01/2025 4:15 PM EDT Office Visit Dermatology at [address] [place] [address] Marek Bonilla MD [address], [place] [address] documented as of this encounter Visit Diagnoses Diagnosis Neutropenia, unspecified type documented in this encounter Care Teams Water Trainer Relationship Specialty Start Date End Date Deborah Quiroga APRN PCP - General Family Medicine 03/24/16 02/04/23 documented as of this encounter
--- OUTSIDE RECORDS SUMMARY | 2024-06-13 14:15 | XMS_ITS | Encounter Summary ---
Author Organization [facility] Address [facility] [place] [address] Care Team Providers Care Cna Caregiver Name Role Phone Ashley Quirogan Cornelius ANURAG Primary Care Provider [phone] Encounter Details Date Type Department Care Team (Late st Contact Info) Description 08/11/2016 Telephone Hematology [place] [phone] Markel Borjas MD [facility] [address] HEMATOLOGY [place] [address] Social History Tobacco Use Types Packs/Day Years [...] EST Office Visit Hematology and Oncology at [place] [phone] Markel Borjas MD [facility] [address] HEMATOLOG[place] [address] 11/02/2024 12:00 PM EDT [place]oint[place] [address] 11/02/2024 1:00 PM EDT Office Visit Rheumatology at [place] [phone] Magdalena Peralta MD [facility] [place] [address] 03/01/2025 4:15 PM EDT Office Visit Dermatology at [place] [address] [facility] [place] [address] Marek Bonilla MD [address], [place] [address] documented as of this encounter Visit Diagnoses Not on filedocumented in this encounter Care Teams Cna Caregiver Relationship Specialty Start Date End Date Deborah Quiroga APRN PCP - General Family Medicine 03/24/16 02/04/23 documented as of this encounter
--- OUTSIDE RECORDS SUMMARY | 2024-06-13 14:15 | XMS_ITS | Encounter Summary ---
Author Organization [facility] [address] Care Team Providers Care Coating And Embossing Unit Operator Name Role Phone Ashley Quirogazac Shields APRN Primary Care Provider [phone] Encounter Details Date Type Department Care Team (Late st Contact Info) Description 07/22/2016 External Results Hematology and Oncology at [place] [phone] Alexandrea Greenwood RN Neutropenia, unspecified type Social [...] EST Office Visit Hematology [place] [address] Markel Borjas MD [facility] [address] HEMATOLOGY [place] [address] 11/02/2024 12:00 PM EDT Appointment [place] [address] 11/02/2024 1:00 PM EDT Office Visit Rheumatology at [place] [phone] Magdalena Peralta MD [facility] [place] [address] 03/01/2025 4:15 PM EDT Office Visit Dermatology at [place] [address] [place] [address] Marek Bonilla MD [address], [place] [address] documented as of this encounter Procedures Procedure Name Priority Date/Time Associated Diagnosis Comments COPPER, SERUM Routine 07/20/2016 10:30 AM EST Neutropenia, unspecified type CMV PCR, QUANTITATIVE Routine 07/20/2016 10:30 AM EST Neutropenia, unspecified type MONONUCLEOSIS SCREEN (APD/JEANNINE/[facility]) Routine 07/20/2016 10:30 AM EST Neutropenia, unspecified [...] type documented in this encounter Care Teams Coating And Embossing Unit Operator Relationship Specialty Start Date End Date Deborah Quiroga APRN PCP - General Family Medicine 03/24/16 02/04/23 documented as of this encounter
--- OUTSIDE RECORDS SUMMARY | 2024-06-13 14:15 | XMS_ITS | Encounter Summary ---
[place] [address] Care Team Providers Care Deployment Manager Name Role Phone Ashley Quirogan Cornelius ANURAG Primary Care Provider [phone] Reason for Visit * Reason Onset Date Comments Medication Management 09/14/2016 Encounter Details Date Type Department Care Team (Late st Contact Info) Description 09/14/2016 Telephone Hematology [place] [phone] Alexandrea Greenwood, mva operator Management Social History Tobacco Use Types [...] 9:12 AM EST Message received from legal secretary: Purnima called, asking for clarification [...] EST Office Visit Hematology and Oncology at [place] [phone] Markel Borjas MD [facility] DR HEMATOLOGY [place] [address] 11/02/2024 12:00 PM EDT Appointment [place] [address] 11/02/2024 1:00 PM EDT Office Visit Rheumatology at [place] [phone] Magdalena Peralta MD [facility] [place] [address] 03/01/2025 4:15 PM EDT Office Visit Dermatology at [address] [place] [address] Marek Bonilla MD [address], [place] [address] documented as of this encounter Visit Diagnoses Not on filedocumented in this encounter Care Teams Deployment Manager Relationship Specialty Start Date End Date Deborah Quiroga APRN PCP - General Family Medicine 03/24/16 02/04/23 documented as of this encounter
--- OUTSIDE RECORDS SUMMARY | 2024-06-13 14:15 | XMS_ITS | Encounter Summary ---
[place] [address] Care Team Providers Care Safety Pin Assembling Machine Operator Name Role Phone Junaid Deborah Shields APRN Primary Care Provider [phone] Reason for Visit * Auth/Cert Specialty Diagnoses / Procedures Referred By Crispin t Referred To Contact Diagnoses Aortic stenosis Procedures PRO REPLACE AORT VALV, PROSTH VALV @REPLACE AORTIC VALVE, OPEN, W\CPB, W\PROSTHETIC VALVE (WRVU 41.32) Referral ID Status Reason Start Date Expiration Date Visits Re quested Visits Authorized [id number] 1 1 Encounter Details Date Type Department Care Team (Late st Contact Info) Description 09/21/2016 7:25 AM EST Anesthesia [place] [address] Luis Enrique Quarles MD [facility] [place] [address] Henrik Cooper MD [facility] [place] [address] Anesthesia Record Procedure Summary Procedure Name Responsible [...] 0819 Sternotomy 0844 CV Bypass init 1009 Program Medical Director 1014 An Clamp Remove 1031 CP Bypass [...] Tube 09/21/16 (#28 angled chest tube to Reader: left: pericardial); Left; 09/22/16; 1119 09/21/16 0000 by Toshia Alejandre RN 09/22/16 1119 by Vero Bonilla RN Chest Tube 09/21/16 (#28 straig ht chest tube to Reader; right: mediastinal'); Right; mediastinum; 09/22/16; 1118 09/21/16 0000 by Toshia Alejandre RN 09/22/16 1118 by Vero Bonilla RN (RETIRED) Peripheral IV Line - Single Lumen 09/21/16; 0648; metacarpal vein (top of hand), left; [id number] catheter system; 20 gauge; valdo Arteaga; 09/23/16; [...] Stop Room / Location 09/21/16 07 1152 [facility] OR 16 / [facility] OR Procedure Diagnosis Surgeon Responsible Provider @REPLACE AORTIC VALVE, OPEN, W\CPB, W\PROSTHETIC VALVE (WRVU 41.32) (N/A Chest); @AORTOPLASTY FOR SUPRAVALVULAR STENOSIS (WRVU 29.33) (N/A Chest) () Alirio Francisco MD Clark, Jeffrey A, MD All Anesthesia Providers: Anesthesiologist: Luis Enrique Quarles MD Soc Analyst: Henrik Cooper MD Last (1hr) Vitals: BP Temp 36.1 ??C (97 ??F) (09/21/16 1800) Pulse 79 (09/21/16 1800) Resp 11 (09/21/16 1800) SpO2 98 % (09/21/16 1800) Patient Location: [facility] Level of Consciousness: Sedated (Pharmacologic/Intentional) [...] EST Office Visit H[place] [address] Markel Borjas MD [facility] DR HEMATOLOG[place] [address] 11/02/2024 12:00 PM EDT Appointment [place] [address] 11/02/2024 1:00 PM EDT Office [place] [address] Magdalena Peralta MD [facility] [place] [address] 03/01/2025 4:15 PM EDT Office Visit Dermatology at [place] [address] [place] [address] Marek Bonilla MD [address], [place] Katherine [place] [address] documented as of this encounter Visit Diagnoses [...] mg documented in this encounter Care Teams Safety Pin Assembling Machine Operator Relationship Specialty Start Date End Date Deborah Quiroga, ORGANIZATIONAL RESEARCH CONSULTANT PCP - General Family Medicine 03/24/16 02/04/23 documented as of this encounter
--- OUTSIDE RECORDS SUMMARY | 2024-06-13 14:15 | XMS_ITS | Encounter Summary ---
Author Organization [facility] [place] [address] Care Team Providers Care Dough Mixer Operator Name Role Phone Ashley Quirogazac Shields APRN Primary Care Provider [phone] Encounter Details Date Type Department Care Team (Late st Contact Info) Description 09/17/2016 External Results Hematology and Oncology at [place] [id number] Alexandrea Greenwood RN Neutropenia, unspecified type Social [...] EST Office Visit H[place] [address] Markel Borjas MD [facility] [address] [place] [address] 11/02/2024 12:00 PM EDT [place]oint[place] [address] 11/02/2024 1:00 PM EDT Office Visit Rheumatology at [place] [phone] Magdalena Peralta MD [facility] [place] [address] 03/01/2025 4:15 PM EDT Office Visit Dermatology at [place] [address] [place] [address] Marek Bonilla MD [address], [place] [address] documented as of this encounter Procedures Procedure [...] type documented in this encounter Care Teams Dough Mixer Operator Relationship Specialty Start Date End Date Deborah Quiroga APRN PCP - General Family Medicine 03/24/16 02/04/23 documented as of this encounter
--- OUTSIDE RECORDS SUMMARY | 2024-06-13 14:15 | XMS_ITS | Encounter Summary ---
[place] [address] Care Team Providers Care Welder Apprentice Combination Name Role Phone Junaid Deborah Shields APRN Primary Care Provider [phone] Reason for Visit * Auth/Cert Specialty Diagnoses / Procedures Referred By Crispin t Referred To Contact Diagnoses Aortic stenosis Procedures PRO REPLACE AORT VALV, PROSTH VALV @REPLACE AORTIC VALVE, OPEN, W\CPB, W\PROSTHETIC VALVE (WRVU 41.32) Referral ID Status Reason Start Date Expiration Date Visits Re quested Visits Authorized [id number] 1 1 Encounter Details Date Type Department Care Team (Late st Contact Info) Description 09/21/2016 7:30 AM EST - 09/21/2016 12:04 PM EST [place] [address] Alirio Esparza MD @REPLACE AORTIC VALVE, OPEN, [...] Patient Age: 61 y.o. Birthdate: 1955 Language: Guyanese Race: White Ethnicity: Not nor Admit Date: 09/21/2016 Discharge Date: 09/25/2016 Attending Physician: Alirio Esparza MD Follow-up Recommendations for Providers: Please continue routine management of cardiovascular risk factors including blood pressure, lipids,glucose, etc. Please note any changes to medications. Patient to follow-up with PCP, Deborah Quiroga APRN, in 1-2 weeks. Patient to follow-up with Associate Curator, Dr. Antelmo Burrell, in two weeks. Patient to follow-up with Cardiac Surgery, Dr. Alirio Esparza, to be scheduled for before 10/19/2016, with CXR, EKG, and Echo. Inpatient Provider Contact Information: [facility] Section of Cardiac Surgery [facility] [address] FAX [phone] Discharge Diagnoses (Hospital Problems) Primary Diagnoses: Secondary [...] at [facility] MAIN OR ??? Pro aortoplas for [...] Purnima Thacker was admitted to [facility] on 09/21/2016 via the Same Day [...] Alirio Esparza and/or the Cardiac Surgery Physician Business Office Representative Team may be reached at . Antibiotic [...] Dr. Alirio Jones. You may use a [place] Track or treadmill but avoid any pulling [...] friends, go to a movie, go to islam, etc. Heavy activities: No hunting, skiing, jogging, [...] AM Markel Borjas MD [facility] [phone] Future Orders Complete By Expires Echocardiogram Transthoracic([place]) [YBZ832 Custom] 10/18/2016 (Approximate) 09/18/2017 Process Instructions: If the Echocardiogram is to be PERFORMED in a DH location other than [place]--STOP and order CNO197, Echocardiogram South/External. Scheduling Instructions: Questions: Is a Bubble Study requested?: No Does the patient have Congenital Heart Disease?: No Does patient require sedation?: None GA rationale: Should this service be billed to the research sponsor?: EKG 12 Lead [EKG1 Custom] 10/18/2016 (Approximate) 09/25/2017 Process Instructions: Scheduling Instructions: Questions: Which DH location will this be performed?: [place] Is a rhythm strip needed?: No If EKG Reason is Pre-op Evaluation, indicate diagnosis for surgery.: Should this service be billed to the research sponsor?: XR Chest PA & Lateral (Generic) [[id number] Custom] 10/18/2016 (Approximate) 09/25/2017 Process Instructions: Scheduling Instructions: Questions: Where will study be performed?: [place]- Radiology Portable exam?: No Reason for exam and clinical history: s/p AVReplacement, patch annuloplasty 1 month f/u Other pertinent information: Stat read required?: Date of injury if applicable: Requested Time: Referral to Cardiac Rehab [[id number] Custom] As directed Process Instructions: If no progress note charted, please enter Clinical details in comments. Scheduling Instructions: Questions: My question or request is: s/p AVR. Cardiac rehab at [facility] Referral to Home Health - at DISCHARGE [IQK9731 CPT(R)] As directed Process Instructions: Scheduling Instructions: Comments: DOCUMENTATION FOR VNA SERVICES (INCLUDING THOSE PATIENTS WITH MEDICARE COVERAGE REQUIRING HOME VNA SERVICES AND/OR HOSPICE SERVICES) PATIENT'S LOCATION: Purnimakary Gallego[address] [address] (home) No relevant phone numbers on file. Leather Stamper's Name: self In discussion with the attending physician, it is certified that this patient is under their care and that they, or a Nurse Practitioner, or Physician Business Office Representative who is working directly with them, hada [...] services as follows: HOME HEALTH AGENCY: [facility] PHONE: [phone] FAX: [phone] RN orders: Cardiopulmonary assessment, incisional assessment, assess [...] issues please call the Cardiac SurgeryOffice at [phone] FOR MEDICARE ONLY: In discussion with the [...] [facility] [address] FAX [phone] Date: 09/25/2016 CC: ANURAG Alford Caryn E, APRN [address] [place] [address] documented in this encounter Discharge Instructions * [...] Alirio Esparza and/or the Cardiac Surgery Physician Business Office Representative Team may be reached at . Antibiotic [...] Dr. Alirio Jones. You may use a [place] Track or treadmill but avoid any pulling [...] friends, go to a movie, go to islam, etc. Heavy activities: No hunting, skiing, jogging, [...] PM EST Cardiac Surgery Progress Note: ID: [id number] S/p AVR, patch aortoplasty POD#2. PMH of [...] Gas) No results found for: PHART, PO2ART, VXE6TQL Assessment/Plan: TPW out this am. (+) BM. [...] Signed: Crispin Aranda PA-C 09/24/2016 Team pager: [phone]; [phone] after 5pm [facility] Section of Cardiac Surgery * Leonor Henson S, MONITOR AND STORAGE BIN TENDER - 09/23/2016 10:48 AM EST Cardiac Surgery Progress Note: ID: [id number] s/p AVR, patch aortoplasty POD#2. PMH of [...] Gas) No results found for: PHART, PO2ART, NDK1YDR Assessment/Plan: s/p AVR, patch aortoplasty POD#2. PMH of Neutropenia, HLD, HTN, Depression, obesity, . Transferred from [facility] yesterday and doing well. Pathway. [...] rounds. Signed: Leonor Henson APRN [facility] Section of Cardiac Surgery Date: 09/23/2016 * Nico Palacios PA - 09/22/2016 9:56 AM EST Cardiac Surgery Progress Note: ID: [id number] s/p AVR, patch aortoplasty POD#1. PMH of [...] NT, ND, soft. Ext: Moves all extremities. [place], well perfused. Incisions: C/D/I Tubes/Lines/Drains: PIV, richi, [...] on rounds. Signed: EKATERINA KIM [facility] Section of Cardiac Surgery Date: 09/22/2016 [...] left pleural effusion. T/L/D Al ETT CVL [place] CT Pacing wires ASSESSMENT, MANAGEMENT, and DECISION [...] Outcome (s) achieved Date Met: 09/25/16 09/25/16 0287 Coping/Psychosocial Plan Of Care Reviewed With patient [...] outpatient services Lalitha Cohen [facility] Pager: [phone] Inpatient Physical Therapy Patient status, treatment interventions, and goals discussed with student. I am in agreement with all details and associated flowsheet rows as documented and was present for all aspects of the patient treatment session. Nery Jaramillo, CANDY Pager [phone] Problem: Acute Rehab Services Goal & Intervention Plan Goal: Bed Mobility Goal Stand Alone Therapy Goal Outcome: Ongoing (Interventions Implemented as Appropriate) 09/22/16 1611 09/25/16 0947 Bed Mobility Goal Bed Mobility Goal, Time to Achieve 4 days -- Bed Mobility Goal, Activity Type scoot/bridge;supine to sit/sit to supine -- Bed Mobility Goal, [place] Level independent -- Bed Mobility Goal, Additional [...] Achieve 4 days -- Gait Training Goal, [place] Level independent -- Gait Training Goal, Distance [...] assist, home with home health [facility] Pager: [phone] Inpatient Physical Therapy Patient status, treatment interventions, and goals discussed with student. I am in agreement with all details and associated flowsheet rows as documented and was present for all aspects of the patient treatment session. Nery Jaramillo, DEVELOPMENT REPRESENTATIVE Pager [phone] Problem: Acute Rehab Services Goal & Intervention Plan Goal: Bed Mobility Goal Stand Alone Therapy Goal Outcome: Ongoing (Interventions Implemented as Appropriate) 09/22/16161009/23/161411 Bed Mobility Goal Bed Mobility Goal, Time to Achieve 4 days -- Bed Mobility Goal, Activity Type scoot/bridge;supine to sit/sit to supine -- Bed Mobility Goal, [place] Level independent -- Bed Mobility Goal, Additional [...] Achieve 4 days -- Gait Training Goal, [place] Level independent -- Gait Training Goal, Distance [...] days -- Transfer Training Goal, Activity Type fik-ib-iewqt/idynj-yt-yvm;gti-gi-ebzbk/ztdyg-fy-bpj -- Transfer Train Goal, [place] Level independent -- Transfer Training Goal, Additional Goal abides sternal precautions -- Transfer Training Goal, Outcome -- goal met * Consult Note - Jana Crenshaw RN - 09/23/2016 9:41 AM EST [facility] Purnima Thacker was seen today [...] Another Service: (cardiac rehab) NICOLE HERNANDEZ, PT Pager:[phone] Inpatient Physical Therapy Problem: Acute Rehab Services Goal & Intervention Plan Goal: Bed Mobility Goal Stand Alone Therapy Goal Outcome: Ongoing (Interventions Implemented as Appropriate) 09/22/161610 Bed Mobility Goal Bed Mobility Goal, Time to Achieve 4 days Bed Mobility Goal, Activity Type scoot/bridge;supine to sit/sit to supine Bed Mobility Goal, [place] Level independent Bed Mobility Goal, Additional Goal able to abide sternal precautions during transfers Goal: Gait Training Goal Stand Alone Therapy Goal Outcome: Ongoing (Interventions Implemented as Appropriate) 09/22/161610 Gait Training Goal Gait Training Goal, Date Established 09/22/16 Gait Training Goal, Time to Achieve 4 days Gait Training Goal, [place] Level independent Gait Training Goal, Distance to Achieve ascend and descends 2 steps independently Goal: Goal Transfer Training Stand Alone Therapy Goal Outcome: Ongoing (Interventions Implemented as Appropriate) 09/22/161610 Goal Transfer Training Transfer Training Goal, Time to Achieve 4 days Transfer Training Goal, Activity Type tam-ge-lgblj/csxrj-pn-vup;hxq-gj-acibc/vwikd-vu-wnz Transfer Train Goal, [place] Level independent Transfer Training Goal, Additional Goal [...] of completing AD's at home, chooses her bdsznc-kv-qac, Martha Thacker (home) for her DPOAH, 2nd choice in friend, Intesh Rad, [place], [place] Current Coping/Education/Information Needs: patient sitting up [...] close by, Rashad & Raymond, and her lndpqw-av-zqk Martha hTacker who she has chosen to be her DPOAH. Also has a friend Nitesh Leroy who lives in [place], [place], also her DPOAH choice. Behavioral Health History: none on file in [facility] Substance Use/Abuse: none on file in [facility] Other Pertinent/Service Specific Information: none Health/Prescription Coverage: Primary Insurance: [employer] Secondary Insurance: none Prescription Coverage: yes, per patient no issues Preferred Pharmacy: ?? Other: none Primary Care Provider: Deborah Quiroga, MONITOR AND STORAGE BIN TENDER [phone] Patient/Caregiver Goals of Treatment: per medical team recommendations at discharge for CT surgery Potential Needs for Transition of Care: Rehab/SNF: TBD Home Health: TBD DME: no Dialysis: no Community Resources: non3 Transportation: ride home with a friend Other: none Anticipated Barriers to Discharge/Special Considerations: none anticipated at this time Plan: patient will need VNA services at discharge. The patient/development representative has been provided a list of Home Health Agencies/DME vendors which servetheir preferred geographic area. A letter describing our affiliations was reviewed with them and they were educated about their right to choose where referrals are placed. Patient requests referral to: [facility] PHONE: [phone] FAX: [phone] Expected date of discharge: Fri/Sat? CM called VNA to confirm referral, talked with VALDO Bunn/intake who stated she was familiar w/patient & would monitor her progress through curaspan. Referral routed to the Pharmacy Intake Technician for matching with agency/vendor and to provide any required information. A member of the Care Management team will continue to monitor progress, follow for continuity of care and assist with transition of care planning. Amanda Moreno RN Pager: [phone] * Op Note - Alirio Esparza MD - 09/21/2016 12:53 PM EST 09/23/2016 Purnima Thacker 1955 [id number] Preoperative Diagnosis: Symptomatic aortic stenosis Postoperative Diagnosis: Symptomatic aortic stenosis Procedure: Aortic valve replacement: [place]ov[place] Pericardial 25 mm Surgeon: Alirio Esparza M.D. Business Office Representative: Phiilp BALL Anesthesia: General endotracheal anesthesia Drains: Two [...] patient was transported to the [facility] on levo. All counts were [...] Operative Note Patient Name: Purnima Thacker : [id number] MR#: [id number] Case Date: 09/21/2016 Surgeon: Surgeon(s) and Role: * Alirio Esparza MD - Primary * Nico Palacios PA - Physician Business Office Representative Preoperative diagnosis: Postoperative diagnosis: Procedure(s) (LRB): @REPLACE [...] EST Office Visit [place] [address] Markel Borjas MD [facility] [address] HEMATOLOGY [place] [address] 11/02/2024 12:00 PM EDT [place] [address] 11/02/2024 1:00 PM EDT Office [place] [phone] Magdalena Peralta MD [facility] [address] [place] [address] 03/01/2025 4:15 PM EDT Office Visit Dermatology at [address] [place] [phone] Marek Bonilla MD [address], [place] [address] Scheduled Orders Name Type Priority Associated Diagnoses [...] IMPLANTABLE DEVICES SCAN 09/26/2016 12:00 AM EST MODEL MAKER SCALE SCAN 09/26/2016 12:00 AM EST POTASSIUM Routine [...] 09/22/2016 4:00 AM EST CARDIAC ENZYMES ([facility]) Routine 09/22/2016 4:00 AM EST CREATININE Routine [...] SCAN EXT O RDR/RSLT * SCAN DOC: MODEL MAKER SCALE (09/26/2016 12:00 AM EST) Anatomical Region Laterality Modality Other Narrative 09/26/2016 12:00 AM EST Ordered by an unspecified provider. Scanning Provider MEDIA MGR SCAN EXT O RDR/RSLT * Potassium (09/25/2016 4:32 AM EST) Pathologist [facility] Potassium 4.4 3.5 - 5.0 mmol/L ST. [...] CHEMISTRY ORDERABLE S [facility] [place] [address] * (ABNORMAL) Differential, Automated (09/24/2016 9:56 AM EST) Pathologist [facility] Neutrophil % 76.8 % [facility] Neutrophil Absolute 7.79(H) 1.70 - 6.10 x10(3)/mc L [facility] Lymph % 11.1 % [facility] Lymphocytes Abs 1.1 0.9 - 3.2 x10(3)/mc L [facility] Monocyte % 8.5 % [facility] Monocyte Abs 0.9 0.3 - 0.9 x10(3)/mc L [facility] Eos % 0.5 % [facility] Eosinophils Abs 0.0 0.0 - 0.4 x10(3)/mc L [facility] Basophil % 0.2 % [facility] [...] City/State/[facility] Co de Phone Number [facility] [place] [address] * (ABNORMAL) Hemogram (09/24/2016 9:56 AM EST) White Blood Cell 10.1(H) 4.0 - 9.5 x10(3)/ L [facility] Red Blood [...] Platelet 141(L) 145 - 357 x10(3)/ L [facility] RDW Standard Deviation 45.0 37.0 - 46.[address] [facility] RDW coefficient of variation 12.6 11.5 - 14.1 % [facility] Mean Platelet Volume 9.4 7.6 - 12.[address] [facility] NRBC% auto 1.1 % [facility] NRBC Absolute 0.110(H) 0.000 - 0.000 x10(3)/mc L [facility] Blood specimen (specimen) 09/24/2016 9:56 AM EST 09/24/2016 10:04 AM EST Narrative Resulting Agency Comment Spec In Lab Alirio Esparza MD HEMATOLOGY ORDERABL ES [facility] [place] [address] * (ABNORMAL) Basic Metabolic Panel (non-fasting) (09/24/2016 [...] the following links into your internet browser. [email or web address] Blood specimen (specimen) 09/24/2016 9:56 AM EST 09/24/2016 10:04 AM EST Narrative Resulting Agency Comment Spec In Lab Alirio Esparza MD CHEMISTRY ORDERABLE S [facility] [place] [address] * XR Chest PA & Lateral (Generic) [...] MD CHEMISTRY ORDERABLE S Performing Organization Address City/[facility]/ZIP Co de Phone Number [facility] [place] [address] * POCT Glucose (09/22/2016 8:17 AM EST) Glucose, POC 131 65 - 199 mg/dL [facility] Comment: Supplemental ranges: <140 mg/dL before meals <180 mg/dL all other times of the day Blood specimen (specimen) 09/22/2016 8:17 AM EST 09/22/2016 8:17 AM EST Alirio Esparza MD POINT OF CARE TEST ORDERABLES [facility] [place] [address] * POCT Glucose (09/22/2016 4:01 AM EST) Glucose, POC 135 65 - 199 mg/dL [facility] Comment: Supplemental ranges: <140 mg/dL before meals <180 mg/dL all other times of the day Blood specimen (specimen) 09/22/2016 4:01 AM EST 09/22/2016 4:01 AM EST Alirio Esparza MD POINT OF CARE TEST ORDERABLES Performing Organization Address [facility] Co de Phone Number [facility] [place] [address] * Scan, Peripheral Blood (09/22/2016 4:00 AM EST) Plat estimate Normal [facility] RBC Morphology Abnormal [facility] Macrocyte 1-5 /HPF [facility] Plat, Giant Less than 1 /HPF [facility] Blood specimen (specimen) 09/22/2016 4:00 AM EST 09/22/2016 4:34 AM EST Narrative Resulting Agency Comment Spec In Lab Alirio Esparza MD HEMATOLOGY ORDERABL ES Performing Organization Address [facility] Phone Number [facility] [place] [address] * Electrolytes panel (09/22/2016 4:00 AM EST) Sodium 145 135 - 145 mmol/L ST. [...] CHEMISTRY ORDERABLE S Performing Organization Address [facility]/[place] [address] * (ABNORMAL) Differential, Automated (09/22/2016 4:00 AM EST) Pathologist [facility] Neutrophil % 70.9 % [facility] Neutrophil Absolute 5.33 1.70 - 6.10 x10(3)/ L [facility] Lymph % 9.1 % [facility] Lymphocytes Abs 0.7(L) 0.9 - 3.2 x10(3)/ L [facility] Monocyte % 18.0 % [facility] Monocyte Abs 1.4(H) 0.3 - 0.9 x10(3)/ L [facility] Eos % 0.0 % [facility] Eosinophils Abs 0.0 0.0 - 0.4 x10(3)/[facility] Basophil % 0.1 % BAR[place] [...] HEMATOLOGY ORDERABL ES [facility] [place] [address] * (ABNORMAL) Hemogram (09/22/2016 4:00 AM EST) [facility] White Blood Cell 7.5 4.0 - 9.5 [...] HOSPITAL LABORATORY Platelet 161 145 - 357 x10(3)/[facility] RDW Standard Deviation 44.0 37.0 - 46.[address] [facility] RDW coefficient of variation 12.6 11.5 - 14.1 % [facility] Mean Platelet Volume 9.3 7.6 - 12.[address] [facility] NRBC% auto 0.3 % [facility] NRBC Absolute 0.020(H) 0.000 - 0.000 x10(3)/ L [facility] Blood specimen (specimen) 09/22/2016 4:00 AM EST 09/22/2016 4:34 AM EST Narrative Resulting Agency Comment Spec In Lab Alirio Esparza MD HEMATOLOGY ORDERABL ES [facility] [place] [address] * (ABNORMAL) Cardiac Enzymes (09/22/2016 4:00 AM EST) [facility] Troponin-T 0.13(H) <=0.03 ng/mL [facility] [...] CHEMISTRY ORDERABLE S [facility] [place] [id number] * (ABNORMAL) Glucose, fasting (09/22/2016 4:00 AM [...] CHEMISTRY ORDERABLE S Performing Organization Address [facility] Co de Phone Number [facility] [place] [place] [address] * (ABNORMAL) Creatinine (09/22/2016 4:00 AM EST) [...] the following links into your internet browser. [email or web address] Blood specimen (specimen) 09/22/2016 4:00 AM EST 09/22/2016 4:34 AM EST Narrative Resulting Agency Comment Spec In Lab Alirio Esparza MD CHEMISTRY ORDERABLE S Performing Organization Address [facility] Co de Phone Number [facility] [place] [address] * BUN (09/22/2016 4:00 AM EST) Blood Urea Nitrogen 10 8 - 18 mg/dL [facility] Blood specimen (specimen) 09/22/2016 4:00 AM EST 09/22/2016 4:34 AM EST Narrative Resulting Agency Comment Spec In Lab Alirio Esparza MD CHEMISTRY ORDERABLE S Performing Organization Address [facility]/ZIP Co de Phone Number [facility] [place] [address] * POCT Glucose (09/21/2016 9:59 PM EST) Glucose, POC 146 65 - 199 mg/dL [facility] Comment: Supplemental ranges: <140 mg/dL before meals <180 mg/dL all other times of the day Blood specimen (specimen) 09/21/2016 9:59 PM EST 09/21/2016 9:59 PM EST Alirio Esparza MD POINT OF CARE TEST ORDERABLES Performing Organization Address [facility] Co de Phone Number [facility] [place] [address] * POCT Glucose (09/21/2016 7:26 PM EST) Glucose, POC 152 65 - 199 mg/dL [facility] Comment: Supplemental ranges: <140 mg/dL before meals <180 mg/dL all other times of the day Blood specimen (specimen) 09/21/2016 7:26 PM EST 09/21/2016 7:26 PM EST Alirio Esparza MD POINT OF CARE TEST ORDERABLES Performing Organization Address [facility] Co de Phone Number [facility] [place] [address] * POCT Glucose (09/21/2016 6:00 PM EST) Glucose, POC 146 65 - 199 mg/dL [facility] Comment: Supplemental ranges: <140 mg/dL before meals <180 mg/dL all other times of the day Blood specimen (specimen) 09/21/2016 6:00 PM EST 09/21/2016 6:00 PM EST Alirio Esparza MD POINT OF CARE TEST ORDERABLES [facility] [place] [place] [address] * (ABNORMAL) BLOOD GAS 2 ARTERIAL (09/21/2016 [...] [facility] FIO2 Art 40 % [facility] PF Ratio Art 270 [facility] Blood specimen (specimen) 09/21/2016 4:42 PM EST 09/21/2016 4:42 PM EST Alirio Esparza MD POINT OF CARE TEST ORDERABLES Performing Organization Address City/[facility]/ZIP Co de Phone Number [facility] [place] [address] * POCT Glucose (09/21/2016 4:07 PM EST) Glucose, POC 150 65 - 199 mg/dL [facility] Comment: Supplemental ranges: <140 mg/dL before meals <180 mg/dL all other times of the day Blood specimen (specimen) 09/21/2016 4:07 PM EST 09/21/2016 4:07 PM EST Alirio Esparza MD POINT OF CARE TEST ORDERABLES Performing Organization Address [facility]/ZIP Co de Phone Number [facility] [place] [address] * (ABNORMAL) Hemoglobin (09/21/2016 4:05 PM EST) Hemoglobin 9.9(L) 11.7 - 15.5 gm/dL [facility] Blood specimen (specimen) 09/21/2016 4:05 PM EST 09/21/2016 4:20 PM EST Narrative Resulting Agency Comment Spec In Lab Alirio Esparza MD HEMATOLOGY ORDERABL ES Performing Organization Address City/[facility] Co de Phone Number [facility] [place] [address] * Potassium (09/21/2016 4:05 PM EST) Potassium [...] CHEMISTRY ORDERABLE S Performing Organization Address [facility] Co de Phone Number [facility] [place] [address] * POCT Glucose (09/21/2016 2:52 PM EST) Glucose, POC 117 65 - 199 mg/dL [facility] Comment: Supplemental ranges: <140 mg/dL before meals <180 mg/dL all other times of the day Blood specimen (specimen) 09/21/2016 2:52 PM EST 09/21/2016 2:52 PM EST Alirio Esparza MD POINT OF CARE TEST ORDERABLES Performing Organization Address [facility] Co de Phone Number [facility] [place] [place] [address] * POCT Glucose (09/21/2016 1:51 PM EST) Glucose, POC 108 65 - 199 mg/dL [facility] Comment: Supplemental ranges: <140 mg/dL before meals <180 mg/dL all other times of the day Blood specimen (specimen) 09/21/2016 1:51 PM EST 09/21/2016 1:51 PM EST Alirio Esparza MD POINT OF CARE TEST ORDERABLES Performing Organization Address [facility] Co de Phone Number [facility] [place] [place] [address] * POCT Glucose (09/21/2016 12:54 PM EST) Glucose, POC 128 65 - 199 mg/dL [facility] Comment: Supplemental ranges: <140 mg/dL before meals <180 mg/dL all other times of the day Blood specimen (specimen) 09/21/2016 12:54 PM EST 09/21/2016 12:54 PM EST Alirio Esparza MD POINT OF CARE TEST ORDERABLES Performing Organization Address [facility] Co de Phone Number [facility] [place] [place] [address] * EKG 12 Lead (09/21/2016 12:26 PM EST) Ventricular rate 87 BPM MUSE SYSTEM Atrial Rate 87 BPM MUSE SYSTEM P-R Interval 256 ms MUSE SYSTEM QRS Duration 90 ms MUSE SYSTEM Q-T Interval 406 ms MUSE SYSTEM QTC Calculated (Bezet) 488 ms MUSE SYSTEM Calculated P [place] 24 degrees MUSE SYSTEM Calculated R [place] 21 degrees MUSE SYSTEM Calculated T [place] -5 degrees MUSE SYSTEM INTERPRETATION Sinus rhythm [...] Esparza MD ECG ORDERABLES Performing Organization Address [facility] Phone Number MUSE SYSTEM * [...] course of the esophagus and below the nqilg-if-wpgj. There is a right IJ PA catheter [...] the course of theesophagus and below the pqazx-yw-njiv. There is a right IJ PA catheter [facility] FIO2 Art 100 % [facility] PF Ratio Art 356 [facility] Blood specimen (specimen) 09/21/2016 12:20 PM EST 09/21/2016 12:20 PM EST Alirio Esparza MD POINT OF CARE TEST ORDERABLES Performing Organization Address City/State/[facility] Co de Phone Number [facility] [place] [place] [address] * (ABNORMAL) BLOOD GAS 2 ARTERIAL (09/21/2016 [...] [facility] FIO2 Art 95 % [facility] Flow Art 0.7 LPM [facility] PF Ratio Art 313 [facility] Temp Art 36.7 Celsius [facility] Blood specimen (specimen) 09/21/2016 10:54 AM EST 09/21/2016 10:54 AM EST Alirio Esparza MD POINT OF CARE TEST ORDERABLES [facility] [place] [address] * Thrombin time (09/21/2016 10:50 AM EST) [...] HEMATOLOGY ORDERABLE S Performing Organization Address [facility] Co de Phone Number [facility] [place] [address] * Fibrinogen (09/21/2016 10:50 AM EST) [facility] Signature Fibrinogen 228 180 - 510 mg/dL ST. [...] HEMATOLOGY ORDERABLE S Performing Organization Address [facility] Co de Phone Number [facility] [place] [address] * APTT (09/21/2016 10:50 AM EST) Partial Thromboplastin Time 32 25 - [address] [facility] Comment: The recommended therapeutic range for full dose, unfractionated heparin at [facility] is 80 ? 114 seconds. The use of the anti-Xa (heparin) level rather than the PTT is recommended for monitoring anticoagulation intensity in critically ill patients receiving unfractionated heparin by continuous IV infusion. Blood specimen (specimen) 09/21/2016 10:50 AM EST 09/21/2016 10:56 AM EST Narrative Resulting Agency Comment Spec In Lab Luis Enrique Quarles MD HEMATOLOGY ORDERABLE S Performing Organization Address [facility] Co de Phone Number [facility] [place] [place] [address] * (ABNORMAL) Prothrombin Time (09/21/2016 10:50 AM [...] HEMATOLOGY ORDERABLE S Performing Organization Address [facility] Co de Phone Number [facility] [place] [address] * (ABNORMAL) Hemogram (09/21/2016 10:50 AM EST) [...] [facility] NRBC% auto 0.1 % [facility] NRBC Absolute 0.020(H) 0.000 - 0.000 x10(3)/mc L [facility] Blood specimen (specimen) 09/21/2016 10:50 AM EST 09/21/2016 10:56 AM EST Narrative Resulting Agency Comment Spec In Lab Luis Enrique Quarles MD HEMATOLOGY ORDERABLE S Performing Organization Address City/[facility]/ZIP Co de Phone Number [facility] [place] [address] * Prepare Platelets, Apheresis (09/21/2016 10:30 AM EST) Pathologist [facility] Dispensed? Yes [facility] Blood specimen (specimen) 09/21/2016 10:30 AM EST 09/21/2016 10:28 AM EST Alirio Esparza MD BLOOD BANK PRODUCT ORDERABLES Performing Organization Address City/[facility]/ZIP Co de Phone Number [facility] [place] [address] * (ABNORMAL) BLOOD GAS 2 ARTERIAL (09/21/2016 10:05 AM EST) pH, Arterial 7.33(L) 7.35 - 7.45 [facility] PCO2, Arterial 54(Critic al) 35 - [address] [facility] Comment:Noted by biomedical instrument technician. PO2, Arterial 218(H) 85 - [...] [facility] Comment: Noted by biomedical instrument technician. Please note: Patients with WBC [...] [facility] Temp Art 37.0 Celsius [facility] Blood specimen (specimen) 09/21/2016 10:05 AM EST 09/21/2016 10:05 AM EST Alirio Esparza MD POINT OF CARE TEST ORDERABLES [facility] [place] [address] * (ABNORMAL) BLOOD GAS 2 ARTERIAL (09/21/2016 9:44 AM EST) pH, Arterial 7.22(Criti gabrielle) 7.35 - 7.45 [facility] Comment:Noted by biomedical instrument technician. PCO2, Arterial 70(Critica l) 35 - [address] [facility] Comment:Noted by biomedical instrument technician. PO2, Arterial 224(H) 85 - [...] OF CARE TEST ORDERABLES Performing Organization Address City/[facility] Co de Phone Number [facility] [place] [address] * (ABNORMAL) Hemoglobin (09/21/2016 9:42 AM EST) Hemoglobin 7.2(L) 11.7 - 15.5 gm/dL [facility] Blood specimen (specimen) 09/21/2016 9:42 AM EST 09/21/2016 9:51 AM EST Narrative Resulting Agency Comment Spec In Lab Alirio Esparza MD HEMATOLOGY ORDERABL ES Performing Organization Address City/[facility] Co de Phone Number [facility] [place] [address] * Platelet count (09/21/2016 9:42 AM EST) Platelet 159 145 - 357 x10(3)/mc L [facility] Immature Plt % 1.6 0.0 - 7.4 % [facility] Comment: Limitation of the Immature Platelet Fraction (IPF)-May be less reliable when the platelet count is less than 98i298/uL due to statistical imprecision. The IPF value [...] in a decreased state of production. References: [employer] The Clinical Value of the Immature Platelet Fraction (IPF) in Cell Recovery Document Number 10-1143 12/2010 [employer] The Role of the Immature Platelet Fraction (IPF) in the Differential Diagnosis of Thrombocytopenia, Document MKT-[id number] V012/11/13 P012/13 Blood specimen (specimen) 09/21/2016 9:42 AM EST 09/21/2016 9:51 AM EST Narrative Resulting Agency Comment Spec In Lab Alirio Esparza MD HEMATOLOGY ORDERABL ES Performing Organization Address [facility] de Phone Number [facility] [place] [address] * (ABNORMAL) Hematocrit (09/21/2016 9:42 AM EST) [...] MD HEMATOLOGY ORDERABL ES Performing Organization Address [facility] Phone Number [facility] [place] [address] * Fibrinogen (09/21/2016 9:42 AM EST) Fibrinogen [...] HEMATOLOGY ORDERABL ES Performing Organization Address [facility] Co de Phone Number [facility] [place] [place] [address] * (ABNORMAL) BLOOD GAS 2 ARTERIAL (09/21/2016 [...] [facility] Temp Art 37.0 Celsius [facility] Blood specimen (specimen) 09/21/2016 9:10 AM EST 09/21/2016 9:10 AM EST Alirio Esparza MD POINT OF CARE TEST ORDERABLES [facility] [place] [address] * Surgical Pathology Report (09/21/2016 9:09 AM EST) Final Diagnosis [id number] ?Location: 3T The signing pathologist has (i) [...] Esparza MD PATHOLOGY/CYTOLOGY ORDERABLES Performing Organization Address City/[facility]/[place] [address] * Specimen to Pathology (surgical or derm) (09/21/2016 9:09 AM EST) AP Specimen 09/21/2016 9:09 AM EST 09/21/2016 9:[address] [facility] - 09/21/2016 9:09 AM EST Specimen requisition ordered. ??Separate Pathology report to follow Alirio Esparza MD PATHOLOGY/CYTOLOGY ORDERABLES Performing Organization Address [facility] [place] [place] [address] * (ABNORMAL) BLOOD GAS 2 ARTERIAL (09/21/2016 [...] City/State/[facility] Co de Phone Number [facility] [place] [address] * (ABNORMAL) BLOOD GAS 2 ARTERIAL (09/21/2016 [...] [facility] FIO2 Art 95 % [facility] Flow Art 1.1 LPM [facility] PF Ratio Art 298 [facility] Temp Art 35.6 Celsius [facility] Blood specimen (specimen) 09/21/2016 8:18 AM EST 09/21/2016 8:18 AM EST Alirio Esparza MD POINT OF CARE TEST ORDERABLES Performing Organization Address [facility] de Phone Number [facility] [place] [address] * Prepare RBC (09/21/2016 7:05 AM EST) Pathologist [facility] Dispensed? Yes [facility] Blood specimen (specimen) 09/21/2016 7:05 AM EST 09/21/2016 7:02 AM EST Alirio Esparza MD BLOOD BANK PRODUCT ORDERABLES Performing Organization Address [facility] Co de Phone Number [facility] [place] [address] * POCT Glucose (09/21/2016 6:42 AM EST) Pathologist [facility] Glucose, POC 104 65 - 199 mg/dL [facility] Comment: Supplemental ranges: <140 mg/dL before meals <180 mg/dL all other times of the day Blood specimen (specimen) 09/21/2016 6:42 AM EST 09/21/2016 6:42 AM EST Alirio Esparza MD POINT OF CARE TEST ORDERABLES Performing Organization Address City/State/[facility] Co de Phone Number [facility] [place] [address] documented in this encounter Visit Diagnoses Not [...] dose on Wed09/21/16 at 1230, Until Discontinued, [place] teeth, Routine Given 09/25/2016 9:40 AM EST [...] at 0600)1600 (Due - Provider: Kendall Martínez [facility]) aspirin chewable tablet 81 mg(Linked Group [...] dose on Wed09/21/16 at 1230, Until Discontinued, [place] teeth, Routine 0900 (Not Given - Provider: [...] Routine documented in this encounter Care Teams Welder Apprentice Combination Relationship Specialty Start Date End Date Deborah Quiroga, MONITOR AND STORAGE BIN TENDER PCP - General Family Medicine 03/24/16 02/04/23 documented as of this encounter
--- OUTSIDE RECORDS SUMMARY | 2024-06-13 14:15 | XMS_ITS | Encounter Summary ---
[place] [address] Care Team Providers Care Agriculture Scientist Name Role Phone Deborah Quiroga ANURAG Primary Care Provider [phone] Encounter Details Date Type Department Care Team (Late st Contact Info) Description 09/11/2016 Orders Only Hematology [place] [address] Alexandrea Greenwood RN Social History [...] the original note were not included. [facility] ON[facility] [phone] Date: 09/11/16 Patient Name: Onesimo Thacker : 1955 Diagnosis: Neutropenia Referral to [site]: [facility] Orders: ? Growth factor: [x] Neulasta 6mg SQ injection x 1 on 09/16/16 Signature: Markel Borjas MD beeper # [id number] Co-signature [if needed]: documented in this encounter Plan of Treatment Upcoming Encounters Date Type Department Care Team (Late st Contact Info) Description 06/23/2024 2:00 PM EST Office Visit Hematology [place] [address] Markel Borjas MD [facility] [address] HEMATOLOGY [place] [address] 11/02/2024 12:00 PM EDT Appointment [place] [address] 11/02/2024 1:00 PM EDT Office [place] [address] Magdalena Peralta MD [facility] DR [place]UMAT[place] [address] 03/01/2025 4:15 PM EDT Office Visit Dermatology at [place] [address] [place] [address] Marek Bonilla MD [address], [place] [address] documented as of this encounter Procedures Procedure Name Priority Date/Time Associated Diagnosis Comments TRANSESOPHAGEAL ECHOCARDIOGRAM (GAVINO) Routine 09/22/2016 documented in this encounter Results * Transesophageal Echocardiogram (GAVINO) (09/22/2016) Anatomical Region Laterality Modality Other 09/22/2016 Narrative 09/22/2016 8:30 AM EST Procedure: ?Transesophageal Echocardiogram Patient: ?ANDREW ONESIMO M ? (Age): 1955(61y) Med Rec#: ? [id number] ?Sex: ?M ? Site Loc: ? [facility] ?Ht / Wt: ??(cm)/ (kg) ? Pt. Loc: ?OR ? Study Date: ?? 09/21/2016 ?Pt. Type: Tape: ? Referring: Alirio Francisco Reading: Henrik Yarbrough ([id number]) Surgical Scrub Tech: Jacobo Patel ([id number]) Interpreting Fellow: Jacobo Patel ([id number]) Diagnosis: *Aortic valve disorders (424.1) CPT Codes: *Echo GAVINO Full (26718) Indication: ?? AVR for severe Rhythm: ? [...] ? Mid-Inferior ?Normal ? Mid-Inferoseptal ?Normal ? Nordman-Septal ? Normal ? Nordman-Anterior ? Normal ? Nordman-Lateral ?Normal ? Nordman-Inferior ? Normal ? Nordman-Tip ?Normal ? This report has been electronically signed by: Henrik Yarbrough M.D. ? 09/22/2016 08:30:41 Images reviewed and interpretation verified [facility] Cardiac Ultrasound [facility] Procedure Note Henrik Yarbrough MD - 09/22/2016 Procedure: Transesophageal Echocardiogram Patient: ANDREW Mejias (Age): 1955(61y) Med Rec#: [id number] Sex: M Site Loc: [facility] Ht / Wt: (cm)/ (kg) Pt. Loc: OR Study Date: 09/21/2016 Pt. 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 09/22/2016 08:30:41 Images reviewed and interpretation verified [facility] Unknown ECHO ORDERABLES documented in this encounter Visit Diagnoses Not on filedocumented in this encounter Care Teams Agriculture Scientist Relationship Specialty Start Date End Date Deborah Quiroga APRN PCP - General Family Medicine 03/24/16 02/04/23 documented as of this encounter
--- OUTSIDE RECORDS SUMMARY | 2024-06-13 14:15 | XMS_ITS | Encounter Summary ---
Author Organization [facility] Address [facility] [place] [address] Care Team Providers Care Ccie Name Role Phone Junaid, Deborah Shields APRN Primary Care Provider [phone] Encounter Details Date Type Department Care Team (Late st Contact Info) Description 07/13/2016 External [place] [address] Provider, Scanning Social History Tobacco [...] EST Office Visit Hematology and Oncology at [place] [phone] Markel Borjas MD [facility] [address] [place] [address] 11/02/2024 12:00 PM EDT Appointment [place] [address] 11/02/2024 1:00 PM EDT Office Visit Rheumatology at [place] [phone] Magdalena Peralta MD [facility] [place] [address] 03/01/2025 4:15 PM EDT Office Visit Dermatology at [place] [address] [place] [phone] Marek Bonilla MD [address], [place] [address] documented as of this encounter Procedures Procedure Name Priority Date/Time Associated Diagnosis Comments SURGICAL PATHOLOGY SCAN Routine 07/13/2016 documented in this encounter Results * Scan Doc: Surgical Pathology (07/13/2016) Nitesh Pina Jr., MD MEDIA MGR SCAN EXT O RDR/RSLT documented in this encounter Visit Diagnoses Not on filedocumented in this encounter Care Teams Ccie Relationship Specialty Start Date End Date Deborah Quiroga APRN PCP - General Family Medicine 03/24/16 02/04/23 documented as of this encounter
--- OUTSIDE RECORDS SUMMARY | 2024-06-13 14:15 | XMS_ITS | Encounter Summary ---
[place] [address] Care Team Providers Care Leave Manager Name Role Phone Deborah Quiroga ANURAG Primary Care Provider [phone]- [phone] Reason for Visit * Reason Onset Date Comments Medical Care Coordination 07/17/2016 Encounter Details Date Type Department Care Team ([facility] Contact Info) Description 07/17/2016 Telephone Hematology [place] [phone] Alexandrea Greenwood RN Medical Care Coordination Social [...] 12:07 PM EST Message received from assistant corporate secretary: Injection/Infusion Referral Call placed to [phone]). Spoke w/ Pasquale. Services to be provided for pt are: Labs @ 10am ([facility]) & Neulasta @ 11am on 07/20/16, CBC only on 07/30/16 Pasquale confirmed they would provide services to pt and I left [facility] for pt to call for appt info. Pt demographics, office note, med list and orders faxed to [facility] & [facility] documented in this encounter Plan of Treatment Upcoming Encounters Date Type Department Care Team (Late st Contact Info) Description 06/23/2024 2:00 PM EST Office Visit [place] [address] Markel Borjas MD [facility] [address] [place] [address] 11/02/2024 12:00 PM EDT [place] [phone] 11/02/2024 1:00 PM EDT Office [place] [phone] Magdalena Peralta MD [facility] [place] [address] 03/01/2025 4:15 PM EDT Office Visit Dermatology at [place] [address] [place] [phone] Marek Bonilla MD [address] [place] [address] documented as of this encounter Visit Diagnoses Not on filedocumented in this encounter Care Teams Leave Manager Relationship Specialty Start Date End Date Deborah Quiroga APRN PCP - General Family Medicine 03/24/16 02/04/23 documented as of this encounter
--- OUTSIDE RECORDS SUMMARY | 2024-06-13 14:15 | XMS_ITS | Encounter Summary ---
[place] [address] Care Team Providers Care Presser Hand Name Role Phone Ashley Quirogan Cornelius ANURAG Primary Care Provider [phone]- [phone] Reason for Visit * Reason Onset Date Comments Medical Care Coordination 09/14/2016 Encounter Details Date Type Department Care Team (Late st Contact Info) Description 09/14/2016 Telephone Hematology [place] [phone] Alexandrea Greenwood RN Medical Care Coordination Social [...] 09/14/2016 9:10 AM EST Message received from clinical secretary: Injection/Infusion Referral Call placed to [facility] Infusion Room Spoke charis Bragg. Services to be provided for pt are: [place] 09/16/16 Mahsa confirmed they would provide services to pt and would contact with appointment time. Pt aware to expect the phone call ??orders faxed to [phone]). documented in this encounter Plan of Treatment Upcoming Encounters Date Type Department Care Team (Late st Contact Info) Description 06/23/2024 2:00 PM EST Office Visit Hematology [place] [address] Markel Borjas MD [facility] [address] [place] [address] 11/02/2024 12:00 PM EDT Appoint[place] [address] 11/02/2024 1:00 PM EDT Office Visit Rheumatology at [place] [address] Magdalena Peralta MD [facility] [place] [address] 03/01/2025 4:15 PM EDT Office Visit Dermatology at [place] [address] [place] [phone] Marek Bonilla MD [address], [place] [address] documented as of this encounter Visit Diagnoses Not on filedocumented in this encounter Care Teams Presser Hand Relationship Specialty Start Date End Date Deborah Quiroga APRN PCP - General Family Medicine 03/24/16 02/04/23 documented as of this encounter
--- OUTSIDE RECORDS SUMMARY | 2024-06-13 14:15 | XMS_ITS | Encounter Summary ---
Author Organization [facility] Address [facility] [place] [address] Care Team Providers Care Academic Affairs Dean Name Role Phone Ashley Quirogazac Shields APRN Primary Care Provider [phone] Encounter Details Date Type Department Care Team (Late st Contact Info) Description 08/18/2016 Orders Only Cardiac Surgery at [place] [phone] Alirio Esparza MD Aortic valve stenosis, unspecified [...] Visit Hematology and Oncology at [place] [phone] Markel Borjas MD [facility] DR HEMATOLOGY [place] [address] 11/02/2024 12:00 PM EDT Appointment Pulmonology at [place] [phone] 11/02/2024 1:00 PM EDT Office Visit Rheumatology at [place] [phone] Magdalena Peralta MD [facility] DR [place] [address] 03/01/2025 4:15 PM EDT Office Visit Dermatology at [place] [address] [place] [address] Marek Bonilla MD [address], [address] DERMATOLOGY [place], [place] [phone] documented as of this encounter Results * Basic Metabolic Panel (non-fasting) (08/18/2016 4:50 PM EST) [facility] Glucose 82 65 - 199 mg/dL [facility] [...] the following links into your internet browser. [email or web address] Blood specimen (specimen) 08/18/2016 4:50 PM EST 08/18/2016 5:03 PM EST Narrative Resulting Agency Comment Spec In Lab Alirio Esparza MD CHEMISTRY ORDERABLE S [facility] [place] [phone] documented in this encounter Visit Diagnoses Diagnosis Aortic valve stenosis, unspecified etiology documented in this encounter Care Teams Academic Affairs Dean Relationship Specialty Start Date End Date Deborah Quiroga APRN PCP - General Family Medicine 03/24/16 02/04/23 documented as of this encounter
--- OUTSIDE RECORDS SUMMARY | 2024-06-13 14:15 | XMS_ITS | Encounter Summary ---
Author Organization [facility] Address [facility] [place] [address] Care Team Providers Care Coiled Tubing Supervisor Name Role Phone Junaid Deborah Shields APRN Primary Care Provider [phone] Encounter Details Date Type Department Care Team (Late st Contact Info) Description 07/17/2016 9:00 AM EST Office Visit [place] [address] Markel Borjas MD [facility] [address] [place] [address] Neutropenia, unspecified type Social History Tobacco Use [...] 07/17/2016 9:00 AM EST Hematology Outpatient Clinic [facility] [...] TOUCH PREP, CLOT SECTION, CORE ??BIOPSY); [OSR# [id number], COLLECTED 06/23/2016, 19 SLIDES]: ?1. ??Normocellular marrow [...] a clonal lymphoproliferative or myeloproliferative disorder (OSR# [id number]) Chromosome analysis on the marrow aspirate revealed [...] at [facility] in computer department Family History: No [...] 24 hour(s)). Labs will be drawn at [facility] next week Imaging As above [...] leukopenia. Will consi kanwal talking to pt's oral and maxillofacial surgery resident about a switch from ACEI to ARB [...] included. N [facility] HEM ONC [facility] [phone] Date: 07/17/16 Patient Name: Purnima Thacker : [...] 07/20/2016 Signature: Markel Borjas MD beeper # [id number] documented in this encounter Plan of Treatment Upcoming Encounters Date Type Department Care Team (Late st Contact Info) Description 06/23/2024 2:00 PM EST Office Visit [place] [address] Markel Borjas MD [facility] [address] [place] [address] 11/02/2024 12:00 PM EDT [place] [address] 11/02/2024 1:00 PM EDT Office [place] [address] Magdalena Peralta MD [facility] [place] [address] 03/01/2025 4:15 PM EDT Office Visit Dermatology at [place] [address] [place] [address] Marek Bonilla MD [address], [place] [address] documented as of this encounter Results * (ABNORMAL) CBC (with Diff) (07/31/2016 9:40 AM EST) [facility] White Blood Cell 2.23(EXTER NAL/ABN) 4.4 [...] * Mononucleosis Screen (07/20/2016 10:30 AM EST) [facility] Mononucleosis Screen neg neg - neg EXTERNAL LAB Blood specimen (specimen) 07/20/2016 10:30 AM EST Markel Borjas MD IMMUNOLOGY ORDERAB LES EXTERNAL LAB * Copper, serum (07/20/2016 10:30 AM EST) [facility] Copper (NOVEMBER) 1.09 0.75 - 1.45 EXTERNAL LAB Blood specimen (specimen) 07/20/2016 10:30 AM EST Markel Borjas MD LAB SEND OUT ORDER JODIE Performing Organization Address City/[facility]/ZIP Co de Phone Number EXTERNAL LAB * CMV PCR, Quantitative (07/20/2016 10:30 AM EST) CMV PCR,Quantitati ve undetected EXTERNAL LAB Blood specimen (specimen) 07/20/2016 10:30 AM EST Markel Borjas MD MOLECULAR ORDERABL ES Performing Organization Address [facility] Co de Phone Number EXTERNAL [...] HEMATOLOGY ORDERAB LES Performing Organization Address [facility] Co de Phone Number EXTERNAL LAB documented in this encounter Visit Diagnoses Diagnosis Neutropenia, unspecified type documented in this encounter Care Teams Coiled Tubing Supervisor Relationship Specialty Start Date End Date Deborah Quiroga, DIE SINKING MACHINE OPERATOR PCP - General Family Medicine 03/24/16 02/04/23 documented as of this encounter
--- OUTSIDE RECORDS SUMMARY | 2024-06-13 14:15 | XMS_ITS | Encounter Summary ---
Author Organization [facility] [place] [address] Care Team Providers Care Licensed Physical Therapist Assistant Name Role Phone Deborah Quiroga APRN Primary Care Provider [phone] Encounter Details Date Type Department Care Team (Late st Contact Info) Description 08/18/2016 4:20 PM EST Clinical Support Same Day at [facility] [place] [phone] Social History Tobacco Use Types Packs/Day Years [...] EST Office Visit Hematology [place] [address] Markel Borjas MD [facility] [address] HEMATOLOGY [place] [address] 11/02/2024 12:00 PM EDT Appointment Pulmonology at [place] [address] 11/02/2024 1:00 PM EDT Office Visit Rheumatology at [place] [phone] Magdalena Peralta MD [facility] [place] [address] 03/01/2025 4:15 PM EDT Office Visit Dermatology at [address] [place] [phone] Marek Bonilla MD [address], [place] [address] documented as of this encounter Visit Diagnoses Not on filedocumented in this encounter Care Teams Licensed Physical Therapist Assistant Relationship Specialty Start Date End Date Deborah Quiroga APRN PCP - General Family Medicine 03/24/16 02/04/23 documented as of this encounter
--- OUTSIDE RECORDS SUMMARY | 2024-06-13 14:15 | XMS_ITS | Encounter Summary ---
Author Organization [facility]1983 Address [facility] [place] [address] Care Team Providers Care Analysis Tester Name Role Phone Ashley Quirogan Cornelius ANURAG Primary Care Provider [phone] Encounter Details Date Type Department Care Team (Late st Contact Info) Description 06/09/2016 Orders Only Hematology [place] [phone] Nitesh Pina Jr., MD [facility] [address] HEMATOLOGY [place] [address] Cyclical neutropenia Social History Tobacco Use Types [...] EST Office Visit [place]ology [place] [phone] Markel Borjas MD [facility] [address] HEMATOLOGY [place] [address] 11/02/2024 12:00 PM EDT Appoint[place] [address] 11/02/2024 1:00 PM EDT Office [place] [address] Magdalena Peralta MD [facility] [place] [address] 03/01/2025 4:15 PM EDT Office Visit Dermatology at [place] [address] [place] [address] Marek Bonilla MD [address], [place] [address] documented as of this encounter Results * Immunophenotyping Flow Cytometry (06/09/2016 4:53 PM EST) Immunophenotyping Flow See Comment [facility] Comment: When completed by the Pathologist, the Flow Cytometry Report ([id number]) will display under the Pathology Results section within eD. Specimen of unknown material (specimen) 06/09/2016 4:53 PM EST 06/09/2016 5:00 PM EST Narrative Resulting Agency Comment Spec In Lab Nitesh Pina Jr., MD HEMATOLOGY ORDERABLE S [facility] [place] [address] documented in this encounter Visit Diagnoses Diagnosis Cyclical neutropenia Cyclic neutropenia documented in this encounter Care Teams Analysis Tester Relationship Specialty Start Date End Date Deborah Quiroga APRN PCP - General Family Medicine 03/24/16 02/04/23 documented as of this encounter
--- OUTSIDE RECORDS SUMMARY | 2024-06-13 14:15 | XMS_ITS | Encounter Summary ---
Author Organization [facility] [place] [address] Care Team Providers Care Boiler Mechanic Name Role Phone Ashley Quirogazac Shields APRN Primary Care Provider [phone] Encounter Details Date Type Department Care Team (Late st Contact Info) Description 07/31/2016 Orders Only Hematology and Oncology at [place] [phone] Alexandrea Greenwood RN Neutropenia, unspecified type Social [...] EST Office Visit Hematology [place] [address] Makrel Borjas MD [facility] [place] [address] 11/02/2024 12:00 PM EDT Appointment [place] [address] 11/02/2024 1:00 PM EDT Office Visit Rheumatology at [place] [phone] Magdalena Peralta MD [facility] [place] [address] 03/01/2025 4:15 PM EDT Office Visit Dermatology at [place] [address] [place] [address] Marek Bonilla MD [address], [place] [address] documented as of this encounter [...] type documented in this encounter Care Teams Boiler Mechanic Relationship Specialty Start Date End Date Deborah Quiroga APRN PCP - General Family Medicine 03/24/16 02/04/23 documented as of this encounter
--- OUTSIDE RECORDS SUMMARY | 2024-06-13 14:15 | XMS_ITS | Encounter Summary ---
Author Organization [facility] Address [facility] [place] [address] Care Team Providers Care Arcade Games Mechanic Name Role Phone Junaid Deborah Shields APRN Primary Care Provider [phone]- [phone] Encounter Details Date Type Department Care Team (Latest Contact Info) Description 06/19/2016 - 06/19/2016 11:59 PM EST Hospital Encounter Radiology Library at [facility] [place] [phone] Nitesh Pina Jr., MD [facility] [place] [address] Pain Discharge Disposition: Home Social History Tobacco [...] tablet Take 81 mg by mouth daily. multivitamin (THERAGRAN) Tablet Take 1 tablet by mouth daily. chlorhexidine (HIBICLENS) 4 % [...] EST Office Visit Hematology [place] [address] Markel Borjas MD [facility] DR [place] [address] 11/02/2024 12:00 PM EDT Appointment [place] [address] 11/02/2024 1:00 PM EDT Office Visit Rheumatology at [place] [phone] Magdalena Peralta MD [facility] [place] [address] 03/01/2025 4:15 PM EDT Office Visit Dermatology at [place] [address] [facility] [place] [address] Marek Bonilla MD [address], [place] [address] documented as of this encounter Procedures Procedure [...] Jr., MD IMG FILM LIBRARY ORD ERABLES [place], [place] documented in this encounter Visit Diagnoses Diagnosis Pain Generalized pain documented in this encounter Care Teams Arcade Games Mechanic Relationship Specialty Start Date End Date Deborah Quiroga, PAINTLESS DENT REPAIR TECHNICIAN PCP - General Family Medicine 03/24/16 02/04/23 documented as of this encounter
--- OUTSIDE RECORDS SUMMARY | 2024-06-13 14:15 | XMS_ITS | Encounter Summary ---
Author Organization [facility] Address [facility] [place] [address] Care Team Providers Care Contact Center Director Name Role Phone Ashley Quirogazac Shields APRN Primary Care Provider [phone] [phone] Encounter Details Date Type Department Care Team (Latest Contact Info) Description 08/18/2016 4:40 PM EST Laboratory Appointment Lab at [place] [phone] Aortic valve stenosis, unspecified etiology Social History [...] EST Office Visit Hematology and Oncology at [place] [phone] Markel Borjas MD [facility] [place] [address] 11/02/2024 12:00 PM EDT Appointment Pulmonology at [place] [phone] 11/02/2024 1:00 PM EDT Office Visit Rheumatology at [place] [phone] Magdalena Peralta MD [facility] [place] [address] 03/01/2025 4:15 PM EDT Office Visit Dermatology at [place] [address] [place] [address] Marek Bonilla MD [address], [place] [address] documented as of this encounter Procedures Procedure Name Priority Date/Time Associated Diagnosis Comments ABORH RECHECK STATUS Routine 08/18/2016 4:50 PM EST TYPE AND SCREEN, SDP (FUTURE SURGERY, [facility] SAME [...] Esparza MD BLOOD BANK LAB BETH ALE[facility] [place] [address] * Antibody screen (08/18/2016 4:50 PM EST) Ab Screen Interp Negative [facility] Expires at [id number] on: 09/24/2016 [facility] Comment: Corrected from 09/17/16 12:00 [Unknown] on 09/09/16 02:32 by Shireen Treviño Blood specimen (specimen) 08/18/2016 4:50 PM EST 08/18/2016 5:11 PM EST Narrative Resulting Agency Comment Spec In Lab Alirio Esparza MD BLOOD BANK LAB BETH ORTEGAROMERO Performing Organization Address [facility] Co de Phone Number [facility] [place] [address] * ABO/Rh Typing (08/18/2016 4:50 PM EST) Pathologist [facility] ABORH Type B Pos [facility] Blood specimen (specimen) 08/18/2016 4:50 PM EST 08/18/2016 5:11 PM EST Narrative Resulting Agency Comment Spec In Lab Alirio Esparza MD BLOOD BANK LAB BETH ORTEGAROMERO Performing Organization Address [facility] de Phone Number [facility] [place] [address] * Basic Metabolic Panel (non-fasting) (08/18/2016 4:50 PM EST) [facility] Glucose 82 65 - 199 mg/dL [facility] Comment:Diabetes: >=200 mg/d L plus symptoms Blood Urea Nitrogen 12 8 - 18 mg/dL [facility] Creatinine 0.87 0.70 - 1.20 mg/dL [facility] Comment: Please note that the pediatric reference intervals supplied above were not validated at [facility]. Results [...] the following links into your internet browser. [email or web address] Blood specimen (specimen) 08/18/2016 4:50 PM EST 08/18/2016 5:03 PM EST Narrative Resulting Agency Comment Spec In Lab Alirio Esparza MD CHEMISTRY ORDERABLE S Performing Organization Address City/State/[facility] Co de Phone Number [facility] [place] [address] documented in this encounter Visit Diagnoses Diagnosis Aortic valve stenosis, unspecified etiology documented in this encounter Care Teams Contact Center Director Relationship Specialty Start Date End Date Deborah Quiroga APRN PCP - General Family Medicine 03/24/16 02/04/23 documented as of this encounter
--- OUTSIDE RECORDS SUMMARY | 2024-06-13 14:15 | XMS_ITS | Encounter Summary ---
Author Organization [facility] [place] [address] Care Team Providers Care Rehabilitation Manager Name Role Phone Ashley Quirogazac Shields APRN Primary Care Provider [phone] [phone] Encounter Details Date Type Department Care Team (Late st Contact Info) Description 07/31/2016 External Results Hematology and Oncology at [place] [phone] Alexandrea Greenwood RN Neutropenia, unspecified type Social [...] EST Office Visit Hematology [place] [address] Markel Borjas MD [facility] [address] [place] [address] 11/02/2024 12:00 PM EDT Appoint[place] [address] 11/02/2024 1:00 PM EDT Office Visit Rheumatology at [place] [phone] Magdalena Peralta MD [facility] [place] [address] 03/01/2025 4:15 PM EDT Office Visit Dermatology at [place] [address] [place] [address] Marek Bonilla MD [address], [place] [address] documented as of this encounter Procedures Procedure [...] type documented in this encounter Care Teams Rehabilitation Manager Relationship Specialty Start Date End Date Deborah Quiroga APRN PCP - General Family Medicine 03/24/16 02/04/23 documented as of this encounter
--- OUTSIDE RECORDS SUMMARY | 2024-06-13 14:15 | XMS_ITS | Encounter Summary ---
[place] [address] Care Team Providers Care Cloth Shearing Supervisor Name Role Phone Deborah Quiroga ANURAG Primary Care Provider [phone] Reason for Visit * Reason Onset Date Comments Medical Care Coordination 07/31/2016 Encounter Details Date Type Department Care Team (Late st Contact Info) Description 07/31/2016 Telephone Hematology [place] [address] Alexandrea Greenwood RN Medical Care Coordination Social [...] on 08/04/15, RN faxed lab req to [phone] at Aydee's request. RN instructed pt on Dr. Borjas's direction above. Pt verbalized understanding. documented in this encounter Plan of Treatment Upcoming Encounters Date Type Department Care Team (Late st Contact Info) Description 06/23/2024 2:00 PM EST Office Visit Hematology [place] [address] Markel Borjas MD [facility] [address] [place] [address] 11/02/2024 12:00 PM EDT Appointment Pulmonology at [place] [phone] 11/02/2024 1:00 PM EDT Office [place] [address] Magdalena Peralta MD [facility] [place] [address] 03/01/2025 4:15 PM EDT Office Visit Dermatology at [place] [address] [place] [address] Marek Bonilla MD [address], [place]OC A DERMATOLOGY [place], [place] [address] documented as of this encounter Visit Diagnoses Not on filedocumented in this encounter Care Teams Cloth Shearing Supervisor Relationship Specialty Start Date End Date Deborah Quiroga APRN PCP - General Family Medicine 03/24/16 02/04/23 documented as of this encounter
--- OUTSIDE RECORDS SUMMARY | 2024-06-13 14:15 | XMS_ITS | Encounter Summary ---
Author Organization [facility] [place] [address] Care Team Providers Care Sleeve Wheel Maker Name Role Phone Deborah Quiroga APRN Primary Care Provider [phone] Encounter Details Date Type Department Care Team (Latest Contact Info) Description 07/10/2016 2:54 PM EST - 07/10/2016 11:59 PM EST Hospital En[place] [address] Discharge Disposition: Home Social History Tobacco Use [...] EST Office Visit Hematology [place] [address] Markel Borjas MD [facility] [address] [place] [address] 11/02/2024 12:00 PM EDT Appointment [place] [phone] 11/02/2024 1:00 PM EDT Office [place] [phone] Magdalena Peralta MD [facility] [place] [address] 03/01/2025 4:15 PM EDT Office Visit Dermatology at [address] [place] [address] Marek Bonilla MD [address], [place] [address] documented as of this encounter Procedures Procedure Name Priority Date/Time Associated Diagnosis Comments BONE MARROW FINAL REPORT Routine 07/10/2016 3:43 PM EST documented in this encounter Results * Bone Marrow Final Report (07/10/2016 3:43 PM EST) Final Diagnosis [id number] ?Location: OPW The signing pathologist has (i) examined the relevant preparation(s) for the specimen(s) and (ii) rendered or confirmed the diagnosis(es). . ? Bone Marrow Final DIAGNOSIS BONE MARROW (PERIPHERAL SMEAR, ASPIRATE SMEAR, TOUCH PREP, CLOT SECTION, CORE BIOPSY); [OSR# [id number], COLLECTED 06/23/2016, 19 SLIDES]: ?? 1. ??Normocellular [...] clonal lymphoproliferative or myeloproliferative ? disorder (OSR# [id number]) ?Chromosome analysis on the marrow aspirate revealed a normal female karyotype; ?46,XX[25] ??(OSR# [id number]) Electronically signed by: ??Elian Guillen MD Verified: [...] 3/uL Band/Seg 0.52 x103/uL; Lymph 0.75 x103/uL; [place] 0.15 x103/uL; Eos 0.01%; Baso 0.01 x10 [...] plasma cells represent 3-4% of the cellularity Hardy ? Polytypic plasma cell staining, high background Lambda ?Polytypic plasma cell staining, high background Block: ? B2 (Core biopsy 2) Fixative: ?? Formalin ANTIBODY: ?? RESULT/COMMENT CD3 ? Scattered small lymphocytes and lymphoid aggregates highlighted CD20 ?Few scattered small lymphocytes stain ( ?? <CD3 in aggregates) CD138 ? Scattered plasma cells represent 3-4% of the cellularity Hardy ? Polytypic plasma cell staining, high background Lambda ?Polytypic plasma cell staining, high background Note: The immunoperoxidase stains reported above were developed and their performance characteristics determined by [facility] Clinical Laboratories. ??They have [...] CONSULTATION CASE A - 19 slides labeled [id number], collection date 06/23/2016. [id number] Report to: [facility] Surgical Pathology Department [facility], [facility], 2nd Floor [address] [place], [place] ??[address] 07/13/2016 11:38 AM EST [facility] Consult Case 07/10/2016 3:43 PM EST 07/10/2016 3:43 PM EST Nitesh Pina Jr., MD PATHOLOGY/CYTOLOGY O RDERABLES [facility] [place] [address] documented in this encounter Visit Diagnoses Not on filedocumented in this encounter Care Teams Sleeve Wheel Maker Relationship Specialty Start Date End Date Deborah Quiroga APRN PCP - General Family Medicine 03/24/16 02/04/23 documented as of this encounter
--- OUTSIDE RECORDS SUMMARY | 2024-06-13 14:15 | XMS_ITS | Encounter Summary ---
Author Organization [facility] [place] [address] Care Team Providers Care Elevator Worker Name Role Phone Ashley Quirogan Cornelius ANURAG Primary Care Provider +1 [phone] Reason for Visit * Reason Onset Date Comments Pre Procedure Call 06/18/2016 Encounter Details Date Type Department Care Team (Late st Contact Info) Description 06/18/2016 Telephone Hematology [place] [address] Alexandrea Greenwood RN Pre Procedure [...] Visit [place]ematology [place] [phone] Markel Borjas MD [facility] [address] [place] [address] 11/02/2024 12:00 PM EDT Appointment [place] [address] 11/02/2024 1:00 PM EDT Office [place] [address] Magdalena Peralta MD [facility] [place] [address] 03/01/2025 4:15 PM EDT Office Visit Dermatology at [place] [address] [place] [address] Marek Bonilla MD [address], [place] [address] documented as of this encounter Visit Diagnoses Not on filedocumented in this encounter Care Teams Elevator Worker Relationship Specialty Start Date End Date Deborah Quiroga APRN PCP - General Family Medicine 03/24/16 02/04/23 documented as of this encounter
--- OUTSIDE RECORDS SUMMARY | 2024-06-13 14:15 | XMS_ITS | Encounter Summary ---
[place] [address] Care Team Providers Care Quality Facilitator Name Role Phone Deborah Quiroga APRN Primary Care Provider +1- [phone] Reason for Visit * Reason Onset Date Comments Prior Authorization 09/11/2016 Neulasta Encounter Details Date Type Department Care Team (Late st Contact Info) Description 09/11/2016 Telephone Hematology [place] [phone] Monica Wick Prior Authorization (Neulasta ) Social [...] EST Prior Auth for Neulasta (Approved) [facility] is a covered facility under the members plan. ID# [id number] Call placed to [phone] Rationale: Can you please start a PA for this pt to receive as outpatient at [facility] on 09/16/16? 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 ??Her last ANC was 0.56 (or 560) on 08/04/16. ??This will need to be approved through her medical as out patient. J code for neulasta. ?? [id number]. Spoke w/ Anna Marie Call Reference [id number] Copay: $ Deductible is not met, patient will have out of pocket costs until deductible is met. documented in this encounter Plan of Treatment Upcoming Encounters Date Type Department Care Team (Late st Contact Info) Description 06/23/2024 2:00 PM EST Office Visit Hematology and Oncology at [place] [phone] Markel Borjas MD [facility] [place] [address] 11/02/2024 12:00 PM EDT Appointment Pulmonology at [address] 11/02/2024 1:00 PM EDT Office Visit Rheumatology at [place] [phone] Magdalena Peralta MD [facility] [place] [address] 03/01/2025 4:15 PM EDT Office Visit Dermatology at [address] [place] [phone] Marek Bonilla MD [address] [place] [address] documented as of this encounter Visit Diagnoses Not on filedocumented in this encounter Care Teams Quality Facilitator Relationship Specialty Start Date End Date Deborah Quiroga APRN PCP - General Family Medicine 03/24/16 02/04/23 documented as of this encounter
--- OUTSIDE RECORDS SUMMARY | 2024-06-13 14:15 | XMS_ITS | Encounter Summary ---
[place] [address] Care Team Providers Care Supervisor Contact And Service Clerks Name Role Phone Junaid, Deborah Shields APRN Primary Care Provider +1- [phone] Reason for Visit * Reason Onset Date Comments Labs Only 09/16/2016 Encounter Details Date Type Department Care Team (Late st Contact Info) Description 09/16/2016 Telephone [place] [phone] Alexandrea Greenwood, RN Labs Only Social History [...] 11:09 AM EST Message received from secretary book keeper: Purnima is having her Neulasta done today at [facility]. ??She is wondering if we want to do a CBC prior to the injection? [phone] Borjas: CBC is fine RN spoke with Swapna at [facility] who confirms they can draw CBC on pt today, RN faxed CBC w/diff to [facility] lab at [phone] RN relayed to pt that CBC ordered had been faxed to [facility], pt will have CBC drawn today prior to neulasta injection. documented in this encounter Plan of Treatment Upcoming Encounters Date Type Department Care Team (Late st Contact Info) Description 06/23/2024 2:00 PM EST Office Visit [place] [phone] Markel Borjas MD [facility] [address] [place] [address] 11/02/2024 12:00 PM EDT [place] [address] 11/02/2024 1:00 PM EDT Office [place] [address] Magdalena Peralta MD [facility] [place] [address] 03/01/2025 4:15 PM EDT Office Visit Dermatology at [address] [address] Marek Bonilla MD [address] [facility] A DERMATOLOGY [place], [place] [phone] documented as of this encounter Results * [...] documented in this encounter Care Teams Supervisor Contact And Service Clerks Relationship Specialty Start Date End Date Deborah Quiroga, PEDIATRIC SPEECH THERAPIST PCP - General Family Medicine 03/24/16 02/04/23 documented as of this encounter
--- OUTSIDE RECORDS SUMMARY | 2024-06-13 14:15 | XMS_ITS | Encounter Summary ---
Author Organization [facility] Address [facility] [place] [address] Care Team Providers Care Biology Professor Name Role Phone Ashley Quirogazac Shields APRN Primary Care Provider +1- [phone] Encounter Details Date Type Department Care Team (Late st Contact Info) Description 07/03/2016 External Results Hematology [place] [phone] Matthew Cervantes, DO [address] [place] [phone] Social History Tobacco Use Types Packs/Day Years [...] EST Office Visit [place] [phone] Markel Borjas MD [facility] [address] [place] [address] 11/02/2024 12:00 PM EDT Appoint[place] [phone] 11/02/2024 1:00 PM EDT Office [place] [address] Magdalena Peralta MD [facility] [place] [address] 03/01/2025 4:15 PM EDT Office Visit Dermatology at [place] [address] [place] [phone] Marek Bonilla MD [address], [place] [address] documented as of this encounter Procedures Procedure Name Priority Date/Time Associated Diagnosis Comments BONE MARROW ASPIRATION PERFO RMED WITH BONE MARRROW BIOPSY Routine 06/28/2016 documented in this encounter Results * BONE MARROW ASPIRATION PREFORMED WITH BONE MARRROW BIOPSY (06/28/2016) Matthew Cervantes DO [facility] ORDERABLES documented in this encounter Visit Diagnoses Not on filedocumented in this encounter Care Teams Biology Professor Relationship Specialty Start Date End Date Deborah Quiroga APRN PCP - General Family Medicine 03/24/16 02/04/23 documented as of this encounter
--- OUTSIDE RECORDS SUMMARY | 2024-06-13 14:15 | XMS_ITS | Encounter Summary ---
Author Organization [facility] Address [facility] [place] [address] Care Team Providers Care Mortgage Protection Sales Name Role Phone Ashley Quirogan Corneluis ANURAG Primary Care Provider +1- [phone] Encounter Details Date Type Department Care Team (Late st Contact Info) Description 06/16/2016 Orders Only Hematology [place] [phone] Nitesh Pina Jr., MD [facility] [address] HEMATOLOGY [place] [address] Cyclical neutropenia Social History Tobacco Use Types [...] Visit [place]ematology [place] [address] Markel Borjas MD [facility] DR HEMATOLOGY [place] [address] 11/02/2024 12:00 PM EDT Appointment [place] [phone] 11/02/2024 1:00 PM EDT Office [place] [address] Magdalena Peralta MD [facility] [place] [address] 03/01/2025 4:15 PM EDT Office Visit Dermatology at [place] [address] [facility] [address] [place] [address] Marek Bonilla MD [address], [place] [address] documented as of this encounter Visit Diagnoses Diagnosis Cyclical neutropenia Cyclic neutropenia documented in this encounter Care Teams Mortgage Protection Sales Relationship Specialty Start Date End Date Deborah Quiroga APRN PCP - General Family Medicine 03/24/16 02/04/23 documented as of this encounter
--- OUTSIDE RECORDS SUMMARY | 2024-06-13 14:15 | XMS_ITS | Encounter Summary ---
Author Organization [facility] [place] [address] Care Team Providers Care Peripheral Equipment Operator Name Role Phone Ashley Quirogazac Shields APRN Primary Care Provider +1 [phone] Encounter Details Date Type Department Care Team (Late st Contact Info) Description 08/04/2016 External Results Hematology and Oncology at [place] [phone] Alexandrea Greenwood RN Neutropenia, unspecified type Social [...] Visit Hemat[place] [address] Markel Borjas MD [facility] DR [place] [address] 11/02/2024 12:00 PM EDT Appointment [place] [address] 11/02/2024 1:00 PM EDT Office Visit Rheumatology at [place] [phone] Magdalena Peralta MD [facility] [place] [address] 03/01/2025 4:15 PM EDT Office Visit Dermatology at [place] [address] [place] [address] Marek Bonilla MD [address], [place] [address] documented as of this encounter Procedures Procedure [...] type documented in this encounter Care Teams Peripheral Equipment Operator Relationship Specialty Start Date End Date Deborah Quiroga APRN PCP - General Family Medicine 03/24/16 02/04/23 documented as of this encounter
--- OUTSIDE RECORDS SUMMARY | 2024-06-13 14:16 | XMS_ITS | Encounter Summary ---
Author Organization [facility] Address [facility] [place] [address] Care Team Providers Care Commodity Lead Name Role Phone RomieDanni rouse ANURAG Primary Care Provider +1- [phone] Encounter Details Date Type Department Care Team (Late st Contact Info) Description 01/23/2014 Orders Only Cardiology at [address] [address] Lee Kincaid MD [facility] [address] CARDIOLOGY [place], [place] [address] SOB (shortness of breath) (Primary Dx) Social [...] EST Office Visit Hematology [place] [address] Markel Borjas MD [facility] [address] [place] [address] 11/02/2024 12:00 PM EDT Appointment [place] [address] 11/02/2024 1:00 PM EDT Office [place] [address] Magdalena Peralta MD [facility] [place] [address] 03/01/2025 4:15 PM EDT Office Visit Dermatology at [place] [address] [facility] [place] [address] Marek Bonilla MD [address], [place] [address] documented as of this encounter Results * Echocardiogram Transthoracic(Leb) (01/23/2014 3:17 PM EDT) Pathologist [email or web address] EF 50 HEARTLAB SYSTEM Anatomical Region Laterality Modality Other 01/23/2014 Narrative 01/23/2014 4:35 PM EDT Procedure: ? Transthoracic Echocardiogram Patient: ? KIRSTIE ECHOLS M ?(Age): 1955(58) Med Rec#: ?[id number] ? Sex: ?F ? [place] [facility] [facility] ? Ht / Wt: ??158(cm)/93(kg) Pt. Loc: ? Adult Floor ?BSA: ?2.02 Study Date: ?01/23/2014 ? Pt. Type: Inpatient Tape: ? Referring: Lee Kincaid ([id number]) Referring: ANNALISA Features Editor: Miguel Beverly Diagnosis:CPT Code(s): ??Echo Full (63039), ??Spectral Doppler (74207), Color Doppler (21116), Indication(s): ??Aortic stenosis Rhythm: Sinus HR ?BP [...] ? Mid-Inferior ?Hypokinetic ? Mid-Inferoseptal ?Hypokinetic ? [place]-Septal ? Hypokinetic ? [place]-Anterior ? Hypokinetic ? [place]-Lateral ?Hypokinetic ? [place]-Inferior ? Hypokinetic ? [place]-Tip ?Hypokinetic ? Chambers ?Value ?Units (Range) ? [...] Patient: KIRSTIE Mejias (Age): 1955(58) Med Rec#: [id number] Sex: F [place] Loc[place] [facility] Ht / Wt: 158(cm)/93(kg) Pt. Loc: Adult Floor BSA: 2.02 Study Date: 01/23/2014 Pt. Type: Inpatient Tape: Referring: Lee Kincaid ([id number]) Referring: ANNALISA Features Editor: Miguel Beverly Diagnosis:CPT Code(s): Echo Full (28516), Spectral Doppler (82004), Color Doppler (94393), Indication(s): Aortic stenosis Rhythm: Sinus HR BP [...] Hypokinetic Mid-Posterolateral Hypokinetic Mid-Inferior Hypokinetic Mid-Inferoseptal Hypokinetic [place]-Septal Hypokinetic [place]-Anterior Hypokinetic [place]-Lateral Hypokinetic [place]-Inferior Hypokinetic [place]-Tip Hypokinetic Chambers Value Units (Range) IVSd 2D [...] breath documented in this encounter Care Teams Commodity Lead Relationship Specialty Start Date End Date Danni Laird APRN [address] [place] [address] PCP - General 01/23/14 11/11/14 documented as of this encounter
--- OUTSIDE RECORDS SUMMARY | 2024-06-13 14:16 | XMS_ITS | Encounter Summary ---
Author Organization [facility] Address [facility] [place] [address] Care Team Providers Care Middle School Pe Teacher Name Role Phone Ashley Quirogan Cornelius ANURAG Primary Care Provider +1- [phone] Encounter Details Date Type Department Care Team (Late st Contact Info) Description 05/22/2016 Orders Only Cardiology at [address] [phone] Chele Randolph PA [facility] DR CARDIOLOGY DEPT. [place], [place] [phone] Aortic valve stenosis, unspecified etiology Social History [...] EST Office Visit [place] [address] Markel Borjas MD [facility] DR HEMATOLOGY AND ONCOLOGY [place], [place] [address] 11/02/2024 12:00 PM EDT Appoint[place] [address] 11/02/2024 1:00 PM EDT Office [place] [address] Magdalena Peralta MD [facility] [place] [address] 03/01/2025 4:15 PM EDT Office Visit Dermatology at [place] [address] [facility] [place] [address] Marek Bonilla MD [address], [place] [address] documented as of this encounter Procedures Procedure [...] ? Procedure Date: 06/03/2016 ? A #: [id number] ? Primary Physician: Fanny, Nitesh Shields ? Case #: [id number] ? File Name: [id number] ? Catheterization Order Number: [id number] ? [facility] ? Final Report [place], [place] ? Patient Name: ? Purnima M. Kirstie ? ID#: ?[id number] ? : ?1955 ? Procedure Date: ? [...] no symptom, no angina (w/i 14 days). [place] ?Cardiovascular Society angina class was 0. This [...] Purnima Thacker Procedure Date: 06/03/2016 A #: [id number] Primary Physician: Nitesh Escobedo Case #: [id number] File Name: [id number] Catheterization Order Number: [id number] [facility] FinalReport [place], [place] Patient Name: Purnima Thacker ID#:[id number] :1955 Procedure Date: June 03, 2016 Case [...] with: no symptom, no angina (w/i 14 days).[place] Cardiovascular Society angina class was 0. This [...] etiology documented in this encounter Care Teams Middle School Pe Teacher Relationship Specialty Start Date End Date Deborah Quiroga, PAYMENT PROCESSOR PCP - General Family Medicine 03/24/16 02/04/23 documented as of this encounter
--- OUTSIDE RECORDS SUMMARY | 2024-06-13 14:16 | XMS_ITS | Encounter Summary ---
Author Organization [place] [address] Care Team Providers Care Vp Ad Products And Planning Name Role Phone Junaid, Deborah Shields APRN Primary Care Provider +1 [phone] Encounter Details Date Type Department Care Team (Late st Contact Info) Description 05/19/2016 10:00 AM EDT Office [place] [phone] Alirio Esparza MD Nonrheumatic aortic valve stenosis [...] Visit Hematology and Oncology at [place] [phone] Markel Borjas MD [facility] DR [place] [address] 11/02/2024 12:00 PM EDT Appointment [place] [address] 11/02/2024 1:00 PM EDT Office [place] [address] Magdalena Peralta MD [facility] [place] [address] 03/01/2025 4:15 PM EDT Office Visit Dermatology at [place] [address] [place] [address] Marek Bonilla MD [address], [place] [address] documented as of this encounter Results * [...] (Bezet) 448 ms MUSE SYSTEM Calculated P Rohwer 37 degrees MUSE SYSTEM Calculated R Rohwer 31 degrees MUSE SYSTEM Calculated T Rohwer 25 degrees MUSE SYSTEM INTERPRETATION Normal sinus rhythm Normal ECG No previous ECGs available Confirmed by MD Becca, Deangelo ([id number]) on 05/19/2016 5:23:33 PM MUSE SYSTEM 05/19/2016 11:4 3 AM EDT 05/19/2016 5:23 PM EDT Alirio Esparza MD ECG ORDERABLES MUSE SYSTEM * Basic Metabolic Panel (non-fasting) (05/19/2016 11:32 AM EDT) Glucose 86 65 - 199 mg/dL [facility] Comment:Diabetes: >=200 mg/d L plus symptoms Blood Urea Nitrogen 13 8 - 18 mg/dL [facility] Creatinine 0.95 0.70 - 1.20 mg/dL [facility] Comment: Please note that the pediatric reference intervals supplied above were not validated at [facility]. Results from pediatric patients should be interpreted in conjunction to the patient's age, height and muscle mass. Sodium 140 135 - 145 mmol/L [facility] Potassium 4.3 3.5 - 5.0 mmol/L [facility] Comment: Please note: ??Patients with WBC >100,000 may have falsely elevated Potassium levels. ??For accurate Potassium quantification in these patients send serum separator tube (gold top) for subsequent determinations. ??Contact the Clinical Chemistry Laboratory if there are any questions. Chloride 101 98 - 107 mmol/L [facility] Carbon Dioxide 27 22 - 31 mmol/L [facility] [...] the following links into your internet browser. [email or web address] Blood specimen (specimen) 05/19/2016 11:32 AM EDT 05/19/2016 11:41 AM EDT Narrative Resulting Agency Comment Spec In Lab Alirio Esparza MD [place] [address] documented in this encounter Visit Diagnoses Diagnosis Nonrheumatic aortic valve stenosis Aortic valve disorders Nonrheumatic aortic valve stenosis Aortic valve disorders documented in this encounter Care Teams Vp Ad Products And Planning Relationship Specialty Start Date End Date Deborah Quiroga, CAR WASH ATTENDANT PCP - General Family Medicine 03/24/16 02/04/23 documented as of this encounter
--- OUTSIDE RECORDS SUMMARY | 2024-06-13 14:16 | XMS_ITS | Encounter Summary ---
Author Organization [facility] Address [facility] [place] [address] Care Team Providers Care Budget Controller Name Role Phone Deborah Quiroga APRN Primary Care Provider +1 [phone] Encounter Details Date Type Department Care Team (Latest Contact Info) Description 05/19/2016 11:52 AM EDT - 05/19/2016 11:59 PM EDT Hospital Encounter XRay at [address] [place] [address] Alirio Esparza MD Nonrheumatic aortic valve stenosis [...] Hematology [place] [address] Markel Borjas MD [facility] DR [place] [address] 11/02/2024 12:00 PM EDT Appointment [place] [address] 11/02/2024 1:00 PM EDT Office Visit [place] [address] Magdalena Peralta MD [facility] [place] [address] 03/01/2025 4:15 PM EDT Office Visit Dermatology at [address] [place] [address] Marek Bonilla MD [address], [place] [address] documented as of this encounter Procedures Procedure [...] disorders documented in this encounter Care Teams Budget Controller Relationship Specialty Start Date End Date Deborah Quiroga, ANURAG PCP - General Family Medicine 03/24/16 02/04/23 documented as of this encounter
--- OUTSIDE RECORDS SUMMARY | 2024-06-13 14:16 | XMS_ITS | Encounter Summary ---
Author Organization [facility] [place] [address] Care Team Providers Care Inclined Railway Operator Name Role Phone Mitchell Wilkes MD Primary Care Provider [phone] Encounter Details Date Type Department Care Team (Late st Contact Info) Description 01/19/2014 Orders Only Cardiology at [address] [address] Chele Randolph PA [facility] DR CARDIOLOGY DEPT. [place], [place] [phone] Cardiomyopathy (Primary Dx) Social History Tobacco Use [...] EST Office Visit Hematology [place] [address] Markel Borjas MD [facility] DR HEMATOLOGY AND ONCOLOGY [place], [place] [address] 11/02/2024 12:00 PM EDT [place]oint[place] [address] 11/02/2024 1:00 PM EDT Office [place] [address] Magdalena Peralta MD [facility] [place] [address] 03/01/2025 4:15 PM EDT Office Visit Dermatology at [place] [address] [place] [address] Marek Bonilla MD [address], [place] [address] documented as of this encounter Procedures Procedure [...] cardiomyopathies documented in this encounter Care Teams Inclined Railway Operator Relationship Specialty Start Date End Date Mitchell Wilkes MD [facility] PCP - General 06/24/10 01/19/14 documented as of this encounter
--- OUTSIDE RECORDS SUMMARY | 2024-06-13 14:16 | XMS_ITS | Encounter Summary ---
Author Organization [facility] Address [facility] [place] [address] Care Team Providers Care Exhibit Preparator Name Role Phone Eitan Danni ANURAG Primary Care Provider [phone] Encounter Details Date Type Department Care Team (Latest Contact Info) Description 01/23/2014 7:45 AM EDT - 01/23/2014 5:50 PM EDT Hospital Encounter [place] [address] Alan Jacobson MD [facility] [place] [address] Cardiomyopathy; SOB (shortness of breath) Discharge Disposition: [...] by your doctor, do not take any cugx-fbf-xahvzqw medicines or herbal preparations without first discussing this with your doctor or pharmacist. There is the possibility of side effect and interactions when these are combined. Follow up Care Who to Call with Questions or Problems If there are any questions or problems that you think might be related to your cardiac cath or angioplasty, contact the ski patrol officer unit control clerk by calling [facility] at . documented in this encounter [...] EST Office Visit Hematology [place] [address] Markel Borjas MD [facility] [address] [place] [address] 11/02/2024 12:00 PM EDT Appointment [place] [address] 11/02/2024 1:00 PM EDT Office Visit Rheumatology at [place] [phone] Magdalena Peralta MD [facility] [place] [address] 03/01/2025 4:15 PM EDT Office Visit Dermatology at [place] [address] [place] [address] Marek Bonilla MD [address] [facility], [place] [address] documented as of this encounter Procedures Procedure Name Priority Date/Time Associated Diagnosis Comments ECHOCARDIOGRAM TRANSTHORACIC Routine 01/23/2014 3:17 PM EDT SOB (shortness of breath) documented in this encounter Results * Echocardiogram Transthoracic(Leb) (01/23/2014 3:17 PM EDT) Pathologist [facility] EF 50 [employer] Anatomical Region Laterality Modality Other 01/23/2014 Narrative 01/23/2014 4:35 PM EDT Procedure: ? Transthoracic Echocardiogram Patient: ? ANDREW ONESIMO M ?(Age): 1955(58) Med Rec#: ?[id number] ? Sex: ?F ? [place] [place] Ht / Wt: ??158(cm)/93(kg) Pt. Loc: ? Adult Floor ?BSA: ?2.02 Study Date: ?01/23/2014 ? Pt. Type: Inpatient Tape: ? Referring: Lee Kincaid ([id number]) Referring: ANNALISA Computer Meteorologist: Miguel Beverly Diagnosis:CPT Code(s): ??Echo Full (03241), ??Spectral Doppler (18015), Color Doppler (58440), Indication(s): ??Aortic stenosis Rhythm: Sinus HR ?BP [...] ? Mid-Inferior ?Hypokinetic ? Mid-Inferoseptal ?Hypokinetic ? Pollok-Septal ? Hypokinetic ? Pollok-Anterior ? Hypokinetic ? Pollok-Lateral ?Hypokinetic ? Pollok-Inferior ? Hypokinetic ? Pollok-Tip ?Hypokinetic ? Chambers ?Value ?Units (Range) ? [...] 01/23/2014 16:34:37 Images reviewed and interpretation verified [facility] Cardiac Ultrasound Laboratory Procedure Note Lee Kincaid MD - 01/23/2014 Procedure: Transthoracic Echocardiogram Patient: ANDREW Mejias (Age): 1955(58) Med Rec#: [id number] Sex: F [place] Loc: [facility] Ht / Wt: 158(cm)/93(kg) Pt. Loc: Adult Floor BSA: 2.02 Study Date: 01/23/2014 Pt. Type: Inpatient Tape: Referring: Lee Kincaid ([id number]) Referring: ANNALISA Computer Meteorologist: Miguel Beverly Diagnosis:CPT Code(s): Echo Full (59394), Spectral Doppler (39702), Color Doppler (82097), Indication(s): Aortic stenosis Rhythm: Sinus HR BP [...] Hypokinetic Mid-Posterolateral Hypokinetic Mid-Inferior Hypokinetic Mid-Inferoseptal Hypokinetic Pollok-Septal Hypokinetic Pollok-Anterior Hypokinetic Pollok-Lateral Hypokinetic Pollok-Inferior Hypokinetic Pollok-Tip Hypokinetic Chambers Value Units (Range) IVSd 2D [...] 01/23/2014 16:34:37 Images reviewed and interpretation verified [facility] Cardiac Ultrasound Laboratory Lee Kincaid MD [...] RN) documented in this encounter Care Teams Exhibit Preparator Relationship Specialty Start Date End Date Danni Laird APRN [address] [place] [address] PCP - General 01/23/14 11/11/14 documented as of this encounter
--- OUTSIDE RECORDS SUMMARY | 2024-06-13 14:16 | XMS_ITS | Encounter Summary ---
Author Organization [facility] [place] [address] Care Team Providers Care Makeup Artistry Instructor Name Role Phone Eitan Danni OSBORN Primary Care Provider Encounter Details Date Type Department Care Team (Late st Contact Info) Description 01/23/2014 9:25 AM EDT - 01/23/2014 10:25 [place] [address] Alan Jacobson MD [facility] [place] [address] CARDIAC CATHETERIZATION Social History Tobacco Use Types [...] by your doctor, do not take any iydc-wbl-nhwcmwq medicines or herbal preparations without first discussing this with your doctor or pharmacist. There is the possibility of side effect and interactions when these are combined. Follow up Care Who to Call with Questions or Problems If there are any questions or problems that you think might be related to your cardiac cath or angioplasty, contact the sort worker environmental educator by calling [facility] at . [...] Office Visit Hematology [place] [address] Markel Borjas MD [facility] [address] [place] [address] 11/02/2024 12:00 PM EDT Appointment [place] [address] 11/02/2024 1:00 PM EDT Office [place] [address] Magdalena Peralta MD [facility] DR RHEUMATOLOGY DEPT [place], [place] [phone] 03/01/2025 4:15 PM EDT Office Visit Dermatology at [place] [address] [place] [address] Marek Bonilla MD [address], [place] [address] documented as of this encounter Procedures Procedure Name Priority Date/Time Associated Diagnosis Comments ECHOCARDIOGRAM TRANSTHORACIC Routine 01/23/2014 3:17 PM EDT SOB (shortness of breath) documented in this encounter Results * Echocardiogram Transthoracic(Leb) (01/23/2014 3:17 PM EDT) EF 50 [email or web address] SYSTEM Anatomical Region Laterality Modality Other 01/23/2014 Narrative 01/23/2014 4:35 PM EDT Procedure: ? Transthoracic Echocardiogram Patient: ? ANDREW ONESIMO M ?(Age): 1955(58) Med Rec#: ?[id number] ? Sex: ?F ? [place] [place] Ht / Wt: ??158(cm)/93(kg) Pt. Loc: ? Adult Floor ?BSA: ?2.02 Study Date: ?01/23/2014 ? Pt. Type: Inpatient Tape: ? Referring: Lee Kincaid ([id number]) Referring: ANNALISA Land Surveying Manager: Miguel Beverly Diagnosis:CPT Code(s): ??Echo Full (19370), ??Spectral Doppler (92647), Color Doppler (59629), Indication(s): ??Aortic stenosis Rhythm: Sinus HR ?BP [...] ? Mid-Inferior ?Hypokinetic ? Mid-Inferoseptal ?Hypokinetic ? Belle-Septal ? Hypokinetic ? Belle-Anterior ? Hypokinetic ? Belle-Lateral ?Hypokinetic ? Belle-Inferior ? Hypokinetic ? Belle-Tip ?Hypokinetic ? Chambers ?Value ?Units (Range) ? [...] Patient: ANDREW Mejias (Age): 1955(58) Med Rec#: [id number] Sex: F [place] Loc: [facility] [place] Ht / Wt: 158(cm)/93(kg) Pt. Loc: Adult Floor BSA: 2.02 Study Date: 01/23/2014 Pt. Type: Inpatient Tape: Referring: Lee Kincaid ([id number]) Referring: ANNALISA Land Surveying Manager: Miguel Beverly Diagnosis:CPT Code(s): Echo Full (79679), Spectral Doppler (76048), Color Doppler (62549), Indication(s): Aortic stenosis Rhythm: Sinus HR BP [...] Hypokinetic Mid-Posterolateral Hypokinetic Mid-Inferior Hypokinetic Mid-Inferoseptal Hypokinetic Belle-Septal Hypokinetic Belle-Anterior Hypokinetic Belle-Lateral Hypokinetic Belle-Inferior Hypokinetic Belle-Tip Hypokinetic Chambers Value Units (Range) IVSd 2D [...] RN) documented in this encounter Care Teams Makeup Artistry Instructor Relationship Specialty Start Date End Date Danni Laird APRN [address] [facility] [place] [address] PCP - General 01/23/14 11/11/14 documented as of this encounter
--- OUTSIDE RECORDS SUMMARY | 2024-06-13 14:16 | XMS_ITS | Encounter Summary ---
Author Organization [facility] Address [facility] [place] [address] Care Team Providers Care Machinery Mover Name Role Phone Junaid, Deborah Shields APRN Primary Care Provider [phone] Reason for Visit * Auth/Cert Specialty Diagnoses / Procedures Referred By Crispin t Referred To Contact Diagnoses AVS Procedures CARDIAC CATHETERIZATION Referral ID Status Reason Start Date Expiration Date Visits Re quested Visits Authorized [id number] 1 1 Encounter Details Date Type Department Care Team (Late st Contact Info) Description 06/03/2016 6:32 AM EDT - 06/03/2016 1:10 PM EDT Hospital Encounter [place] [phone] Anjum Oliveros II, MD [facility] [place] [address] Mario Alberto Escobedo MD [facility] [place] [address] Aortic valve stenosis, unspecified etiology; Nonrheumatic aortic [...] by your doctor, do not take any sydw-cpe-kwbzuhj medicinesor herbal preparations without first discussing this with your doctor or pharmacist. There is the possibility of side effects and interactions when these are combined. Follow Up Care Who to call with questions or problems If there are any questions or problems that you think might be related to your cardiac cath or angioplasty, contact the radio electronics technician distribution agent by calling [facility] at . * Patient Instructions* Felicia Corrigan - 06/03/2016 9:33 AM EDT Cardiology Instructions Call your doctor if: Chest pain, dyspnea, pain or swelling in legs occurs. If you have non-emergent questions between now and the time of your follow up appointments: -During 8am-5pm Wednesday through Wednesday call [phone] to speak with a nurse in the cardiology clinic -All other times call [phone] and ask to speak to the pattern filer distribution agent. MEDICATIONS - restart your spironolactone, discontinue [...] Appointments: Primary care provider: Cardiology: Deborah Hahn, TEMPORARY OFFICE ASSISTANT [phone] Follow up as planned or as needed. Dr. Esparza [phone] Other follow-up appointment: Hematology - Dr. Mario [...] EST Office Visit Hematology [place] [address] Markel Borjas MD [facility] [address] [place] [address] 11/02/2024 12:00 PM EDT Appointment [place] [address] 11/02/2024 1:00 PM EDT Office [place] [address] Magdalena Peralta MD [facility] [place] [address] 03/01/2025 4:15 PM EDT Office Visit Dermatology at [address] [place] [phone] Marek Bonilla MD [address] [place] [address] documented as of this encounter Procedures Procedure [...] Tube HOLD (06/03/2016 11:45 AM EDT) Pathologist [facility] Green Hold Sample in lab. [facility] Blood specimen (specimen) Venous Draw / Unknown 06/03/2016 11:45 AM EDT 06/03/2016 12:12 PM EDT Mario Alberto Escobedo MD CHEMISTRY ORDERABLES [facility] [place] [address] * Methylmalonic acid, serum (06/03/2016 11:45 AM EDT) Pathologist [facility] Methylmalonic Acid (NOVEMBER) 0.21 <=0.40 nmol/mL [facility] Comment: Test Performed by: [facility] [place] [id number] Turnstile Collector: Raymond Chaudhry II, M.D., Ph.D. Blood specimen (specimen) 06/03/2016 11:45 AM EDT 06/03/2016 1:57 PM EDT Narrative Resulting Agency Comment Spec In Lab Mario Alberto Escobedo MD LAB SEND OUT ORDERAB LES Performing Organization Address [facility]/ZIP Co de Phone Number [facility] [place] [address] * Granulocyte Antibody (06/03/2016 11:45 AM EDT) Pathologist [facility] Granulocyte Ab (NOVEMBER) Negative Not Applicable [facility] Comment: ADDITIONAL INFORMATION Method: Immunofluorescent Assay Performing Laboratory CLIA# [id number] This test was developed and its performance characteristics determined by [facility] in a manner consistent with CLIA requirements. This test has not been cleared or approved by the U.S. Food and Drug Administration. Test Performed by: [facility] [place] [address] Turnstile Collector: Raymond Chaudhry II, M.D., Ph.D. Blood specimen (specimen) 06/03/2016 11:45 AM EDT 06/03/2016 1:57 PM EDT Narrative Resulting Agency Comment Spec In Lab Mario Alberto Escobedo MD LAB SEND OUT ORDERAB LES Performing Organization Address City/[facility] Co de Phone Number [facility] [place] [address] * TSH (06/03/2016 11:45 AM EDT) Thyroid Stimulating Hormone 2.18 0.27 - 4.20 mcIU/mL [facility] Blood specimen (specimen) 06/03/2016 11:45 AM EDT 06/03/2016 12:11 PM EDT Narrative Resulting Agency Comment Spec In Lab Mario Alberto Escobedo MD CHEMISTRY ORDERABLES Performing Organization Address [facility]/ZIP Co de Phone Number [facility] [place] [place] [address] * Homocysteine Total, Plasma (06/03/2016 11:45 AM EDT) Homocystine 9 <=15 mcmol/L [facility] Blood specimen (specimen) 06/03/2016 11:45 AM EDT 06/03/2016 12:11 PM EDT Narrative Resulting Agency Comment Spec In Lab Mario Alberto Escobedo MD CHEMISTRY ORDERABLES Performing Organization Address [facility] Co de Phone Number [facility] [place] [place] [address] * Folate, serum (06/03/2016 11:45 AM EDT) Folate >20.0 4.8 - 24.2 ng/mL [facility] Blood specimen (specimen) 06/03/2016 11:45 AM EDT 06/03/2016 12:04 PM EDT Narrative Resulting Agency Comment Spec In Lab Mario Alberto Escobedo MD CHEMISTRY ORDERABLES Performing Organization Address [facility] Co de Phone Number [facility] [place] [place] [address] * (ABNORMAL) Sedimentation rate (06/03/2016 11:45 AM EDT) Sedimentation Rate Automated 41(H) 0 - 20 mm/hr [facility] Blood specimen (specimen) 06/03/2016 11:45 AM EDT 06/03/2016 12:04 PM EDT Narrative Resulting Agency Comment Spec In Lab Mario Alberto Escobedo MD HEMATOLOGY ORDERABLE S [facility] [place] [address] * Lactate Dehydrogenase (06/03/2016 11:45 AM EDT) Lactate Dehydrogenase 164 110 - 220 unit/L [facility] Blood specimen (specimen) 06/03/2016 11:45 AM EDT 06/03/2016 12:11 PM EDT Narrative Resulting Agency Comment Spec In Lab Mario Alberto Escobedo MD CHEMISTRY ORDERABLES [facility] [place] [address] * Comprehensive metabolic panel (non-fasting) (06/03/2016 11:45 AM EDT) Glucose 90 65 - 199 mg/dL [facility] [...] the following links into your internet browser. [email or web address] Blood specimen (specimen) 06/03/2016 11:45 AM EDT 06/03/2016 12:11 PM EDT Narrative Resulting Agency Comment Spec In Lab Mario Alberto Escobedo MD CHEMISTRY ORDERABLES [facility] [place] [address] documented in this encounter Visit Diagnoses Diagnosis [...] Hernandez) documented in this encounter Care Teams Machinery Mover Relationship Specialty Start Date End Date Deborah Quiroga, TEMPORARY OFFICE ASSISTANT PCP - General Family Medicine 03/24/16 02/04/23 documented as of this encounter
--- OUTSIDE RECORDS SUMMARY | 2024-06-13 14:16 | XMS_ITS | Encounter Summary ---
Author Organization [facility] Address [facility] [place] [address] Care Team Providers Care Beam Doffer Name Role Phone Junaid Deborah Shields APRN Primary Care Provider [phone] Encounter Details Date Type Department Care Team (Latest Contact Info) Description 05/19/2016 11:00 AM EDT Clinical [place] [phone] Nonrheumatic aortic valve stenosis Social History Tobacco [...] EST Office Visit Hematology [place] [address] Markel Borjas MD [facility] [address] HEMATOLOGY [place] [address] 11/02/2024 12:00 PM EDT Appointment [place] [phone] 11/02/2024 1:00 PM EDT Office [place] [phone] Magdalena Peralta MD [facility] [place] [address] 03/01/2025 4:15 PM EDT Office Visit Dermatology at [address] [place] [address] Marek Bonilla MD [address] [facility], [place] [address] documented as of this encounter Procedures Procedure [...] (Bezet) 448 ms MUSE SYSTEM Calculated P Saucier 37 degrees MUSE SYSTEM Calculated R Saucier 31 degrees MUSE SYSTEM Calculated T Saucier 25 degrees MUSE SYSTEM INTERPRETATION Normal sinus rhythm Normal ECG No previous ECGs available Confirmed by MD Becca, Deangelo ([id number]) on 05/19/2016 5:23:33 PM MUSE SYSTEM 05/19/2016 11:4 3 AM EDT 05/19/2016 5:23 PM EDT Alirio Esparza MD ECG ORDERABLES MUSE SYSTEM documented in this encounter Visit Diagnoses Diagnosis Nonrheumatic aortic valve stenosis Aortic valve disorders documented in this encounter Care Teams Beam Doffer Relationship Specialty Start Date End Date Deborah Quiroga, BENCH WORKER BINDING PCP - General Family Medicine 03/24/16 02/04/23 documented as of this encounter
--- OUTSIDE RECORDS SUMMARY | 2024-06-13 14:16 | XMS_ITS | Encounter Summary ---
Author Organization [facility] Address [facility] [place] [address] Care Team Providers Care Contracting Specialist Name Role Phone Junaid Deborah Shields APRN Primary Care Provider [phone] Reason for Visit * Auth/Cert Specialty Diagnoses / Procedures Referred By Crispin t Referred To Contact Diagnoses AVS Procedures CARDIAC CATHETERIZATION Referral ID Status Reason Start Date Expiration Date Visits Re quested Visits Authorized [id number] 1 1 Encounter Details Date Type Department Care Team (Late st Contact Info) Description 06/03/2016 7:30 AM EDT - 06/03/2016 8:30 AM EDT [place] [phone] Mario Alberto Escobedo MD [facility] [place] [address] CARDIAC CATHETERIZATION Social History Tobacco Use Types [...] by your doctor, do not take any ldnl-bho-qwkrcgz medicinesor herbal preparations without first discussing this with your doctor or pharmacist. There is the possibility of side effects and interactions when these are combined. Follow Up Care Who to call with questions or problems If there are any questions or problems that you think might be related to your cardiac cath or angioplasty, contact the retail center receptionist operations administrator by calling [facility] at . * Patient Instructions* Felicia Corrigan - 06/03/2016 9:33 AM EDT Cardiology Instructions Call your doctor if: Chest pain, dyspnea, pain or swelling in legs occurs. If you have non-emergent questions between now and the time of your follow up appointments: -During 8am-5pm Wednesday through Wednesday call [phone] to speak with a nurse in the cardiology clinic -All other times call [phone] and ask to speak to the screening technician operations administrator. MEDICATIONS - restart your spironolactone, discontinue prior [...] Appointments: Primary care provider: Cardiology: Deborah Hahn, ROLL SCALE MAN [phone] Follow up as planned or as needed. Dr. Esparza [phone] Other follow-up appointment: Hematology - Dr. Mario [...] Visit Hematology [place] [address] Markel Borjas MD [facility] DR [place] [address] 11/02/2024 12:00 PM EDT Appointment [place] [address] 11/02/2024 1:00 PM EDT Office [place] [address] Magdalena Peralta MD [facility] [place] [address] 03/01/2025 4:15 PM EDT Office Visit Dermatology at [place] [address] [place] [phone] Marek Bonilla MD [address] [place] [address] documented as of this encounter Procedures Procedure [...] CHEMISTRY ORDERABLES [facility] [place] [address] * Methylmalonic acid, serum (06/03/2016 11:45 AM EDT) Methylmalonic Acid (NOVEMBER) 0.21 <=0.40 nmol/mL [facility] Comment: Test Performed by: [address] [address] Television Repairer: Raymond Chaudhry II, M.D., Ph.D. Blood specimen (specimen) 06/03/2016 11:45 AM EDT 06/03/2016 1:57 PM EDT Narrative Resulting Agency Comment Spec In Lab Mario Alberto Escobedo MD LAB SEND OUT ORDERAB LES Performing Organization Address [facility] Co de Phone Number [facility] [place] [address] * Granulocyte Antibody (06/03/2016 11:45 AM EDT) Granulocyte Ab (NOVEMBER) Negative Not Applicable [facility] Comment: ADDITIONAL INFORMATION Method: Immunofluorescent Assay Performing Laboratory CLIA# [id number] This test was developed and its performance characteristics determined by [facility] in a manner consistent with CLIA requirements. This test has not been cleared or approved by the U.S. Food and Drug Administration. Test Performed by: [place] [address] Television Repairer: Raymond Chaudhry II, M.D., Ph.D. Blood specimen (specimen) 06/03/2016 11:45 AM EDT 06/03/2016 1:57 PM EDT Narrative Resulting Agency Comment Spec In Lab Mario Alberto Escobedo MD LAB SEND OUT ORDERAB LES Performing Organization Address [facility] Co de Phone Number [facility] [place] [address] * TSH (06/03/2016 11:45 AM EDT) Thyroid Stimulating Hormone 2.18 0.27 - 4.20 mcIU/mL [facility] Blood specimen (specimen) 06/03/2016 11:45 AM EDT 06/03/2016 12:11 PM EDT Narrative Resulting Agency Comment Spec In Lab Mario Alberto Escobedo MD CHEMISTRY ORDERABLES Performing Organization Address [facility] Co de Phone Number [facility] [place] [address] * Homocysteine Total, Plasma (06/03/2016 11:45 AM EDT) Homocystine 9 <=15 mcmol/L [facility] Blood specimen (specimen) 06/03/2016 11:45 AM EDT 06/03/2016 12:11 PM EDT Narrative Resulting Agency Comment Spec In Lab Mario Alberto Escobedo MD CHEMISTRY ORDERABLES [facility] [place] [address] * Folate, serum (06/03/2016 11:45 AM EDT) Folate >20.0 4.8 - 24.2 ng/mL [facility] Blood specimen (specimen) 06/03/2016 11:45 AM EDT 06/03/2016 12:04 PM EDT Narrative Resulting Agency Comment Spec In Lab Mario Alberto Escobedo MD CHEMISTRY ORDERABLES Performing Organization Address City/[facility]/ZIP Co de Phone Number [facility] [place] [address] * (ABNORMAL) Sedimentation rate (06/03/2016 11:45 AM EDT) Sedimentation Rate Automated 41(H) 0 - 20 mm/hr [facility] Blood specimen (specimen) 06/03/2016 11:45 AM EDT 06/03/2016 12:04 PM EDT Narrative Resulting Agency Comment Spec In Lab Mario Alberto Escobedo MD HEMATOLOGY ORDERABLE S [facility] [place] [address] * Lactate Dehydrogenase (06/03/2016 11:45 AM EDT) Lactate Dehydrogenase 164 110 - 220 unit/L [facility] Blood specimen (specimen) 06/03/2016 11:45 AM EDT 06/03/2016 12:11 PM EDT Narrative Resulting Agency Comment Spec In Lab Mario Alberto Escobedo MD CHEMISTRY ORDERABLES [facility] [place] [address] * Comprehensive metabolic panel (non-fasting) (06/03/2016 11:45 [...] the following links into your internet browser. [email or web address] Blood specimen (specimen) 06/03/2016 11:45 AM EDT 06/03/2016 12:11 PM EDT Narrative Resulting Agency Comment Spec In Lab Mario Alberto Escobedo MD CHEMISTRY ORDERABLES [facility] [place] [address] documented in this encounter Visit Diagnoses Diagnosis [...] Hernandez) documented in this encounter Care Teams Contracting Specialist Relationship Specialty Start Date End Date Deborah Quiroga APRN PCP - General Family Medicine 03/24/16 02/04/23 documented as of this encounter
--- OUTSIDE RECORDS SUMMARY | 2024-06-13 14:16 | XMS_ITS | Encounter Summary ---
Author Organization [facility] [address] Care Team Providers Care Artificial Intelligence Specialist Name Role Phone Eitan Danni ANURAG Primary Care Provider [phone] Encounter Details Date Type Department Care Team (Late st Contact Info) Description 01/22/2014 Telephone Cardiology at [address] [phone] Cynthia Arrington LPN Social History Tobacco Use [...] LPN - 01/23/2014 2:39 PM EDT This play writer did not receive a call back [...] EST Office Visit [place] [phone] Markel Borjas MD [facility] [address] [place] [address] 11/02/2024 12:00 PM EDT [place] [phone] 11/02/2024 1:00 PM EDT Office [place] [address] Magdalena Peralta MD [facility] [place] [address] 03/01/2025 4:15 PM EDT Office Visit Dermatology at [place] [address] [place] [address] Marek Bonilla MD [address], [address] DERMATOLOGY [place], [place] [phone] documented as of this encounter Visit Diagnoses Not on filedocumented in this encounter Care Teams Artificial Intelligence Specialist Relationship Specialty Start Date End Date Danni Laird APRN [address] [place] [address] PCP - General 01/23/14 11/11/14 documented as of this encounter
--- OUTSIDE RECORDS SUMMARY | 2024-06-13 14:16 | XMS_ITS | Encounter Summary ---
Author Organization [facility] Address [facility] [place] [address] Care Team Providers Care Fiscal Clerk Name Role Phone Deborah Quiroga APRN Primary Care Provider [phone] Reason for Visit * Reason Comments Schedule Office Case * Consultation (Routine) - Closed Specialty Diagnoses / Procedures Referred By Contac t Referred To Contact Hematology and Oncology Diagnoses Leukopenia Neutropenia LEUKOPENIA W/NEUTROPENIA Procedures TC PEGFILGRASTIM, 6MG, INJECTION LEUKOPENIA W/NEUTROPENIA Alirio Esparza MD [facility] [place] [address] Mario Alberto Ramos Jr., MD [facility] DR [place] [address] Referral ID Status Reason Start Date Expiration Date V isits Requested Visits Authorized [id number] Closed Consult, Test & Treat 07/17/2016 07/17/2017 1 1 Encounter Details Date Type Department Care Team (Late st Contact Info) Description 06/09/2016 3:00 PM EST Office Visit Hematology [place] [address] Mario Alberto Ramos Jr., MD [facility] [place] [address] Cyclical neutropenia Social History Tobacco Use Types [...] 06/09/2016 3:00 PM EST Hematology Outpatient Clinic [facility] Hematology Outpatient Consult Note CC: 60 [...] Unknown See Comment Flow Cytometry Report Unknown [id number] ... HematoPathology: Flow Cytometry DIAGNOSIS 1. No [...] EST Office Visit Hematology [place] [address] Markel Borjas MD [facility] DR [place] [address] 11/02/2024 12:00 PM EDT Appointment [place] [phone] 11/02/2024 1:00 PM EDT Office [place] [address] Magdalena Peralta MD [facility] [place] [address] 03/01/2025 4:15 PM EDT Office Visit Dermatology at [place] [address] [place] [phone] Marek Bonilla MD [address], [place] [address] documented as of this encounter Procedures Procedure [...] (06/09/2016 4:53 PM EST) Flow Cytometry Report [id number] ?Location: The signing pathologist has (i) examined [...] by the Clinical Flow Cytometry Laboratory at [facility]. It has not been cleared [...] high complexity clinical laboratory testing. SPECIMEN PROCESSING [id number] Cells for immunophenotypic analysis were derived from [...] MD PATHOLOGY/CYTOLOGY O RDERABLES Performing Organization Address City/[facility]/ZIP Co de Phone Number [facility] [place] [address] * Scan, Peripheral Blood (06/09/2016 4:53 PM EST) Pathologist [facility] Plat estimate Normal [facility] RBC Morphology Normal [facility] Blood specimen (specimen) 06/09/2016 4:53 PM EST 06/09/2016 5:00 PM EST Narrative Resulting Agency Comment Spec In Lab Mario Alberto Ramos Jr., MD HEMATOLOGY ORDERABLE S Performing Organization Address City/[facility]/ZIP Co de Phone Number [facility] [place] [address] * (ABNORMAL) Differential, Automated (06/09/2016 4:53 PM EST) Pathologist [facility] Neutrophil % 27.7 % [facility] Neutrophil Absolute 0.48(Crit ical) 1.70 - 6.10 x10(3)/ L [facility] Comment: [...] Abs 0.2(L) 0.3 - 0.9 x10(3)/ L [facility] Eos % 0.6 % [facility] Eosinophils Abs 0.0 0.0 - 0.4 x10(3)/[facility] Basophil % 1.2 % [facility] Baso Absolute 0.0 0.0 - 0.1 x10(3)/[facility] Immature Gran % 0.00 % [facility] Comment: Immature granulocytes(IG's)percentage and absolute count will include metamyelocytes, myelocytes, and promyelocytes. Blood smears from CBCs yielding IG's will be scanned manually for concordance. If this scan disagrees with the automated IG or if promyelocytes are noted, a manual differential will be performed. Immature Gran Absolute 0.00 0.00 - 0.04 x10(3)/ L [facility] Blood specimen (specimen) 06/09/2016 4:53 PM EST 06/09/2016 5:00 PM EST Narrative Resulting Agency Comment Spec In Lab Mario Alberto Ramos Jr., MD HEMATOLOGY ORDERABLE S [facility] [place] [address] * (ABNORMAL) Hemogram (06/09/2016 4:53 PM EST) White Blood Cell 1.7(Criti gabrielle) 4.0 - 9.5 x10(3)/ L [facility] Red Blood Cell 3.92(L) 4.00 - 5.21 x10(6)/mc L [facility] Hemoglobin 12.4 11.7 [...] MD HEMATOLOGY ORDERABLE S Performing Organization Address City/State/[facility] Co de Phone Number [facility] [place] [address] * Immunophenotyping Flow Cytometry (06/09/2016 4:53 PM EST) Immunophenotyping Flow See Comment [facility] Comment: When completed by the Pathologist, the Flow Cytometry Report ([id number]) will display under the Pathology Results section within [facility]. Specimen of unknown material (specimen) 06/09/2016 4:53 PM EST 06/09/2016 5:00 PM EST Narrative Resulting Agency Comment Spec In Lab Mario Alberto Ramos Jr., MD HEMATOLOGY ORDERABLE S [facility] [place] [address] documented in this encounter Visit Diagnoses Diagnosis Cyclical neutropenia Cyclic neutropenia documented in this encounter Care Teams Fiscal Clerk Relationship Specialty Start Date End Date Deborah Quiroga, HOME VISITOR [employer] START PCP - General Family Medicine 03/24/16 02/04/23 documented as of this encounter
--- OUTSIDE RECORDS SUMMARY | 2024-06-13 14:16 | XMS_ITS | Encounter Summary ---
Author Organization [facility] [place] [address] Care Team Providers Care Drilling Inspector Name Role Phone Ashley Quirogazac Shields APRN Primary Care Provider [phone] Reason for Visit * Consultation (Urgent) - Closed Specialty Diagnoses / Procedures Referred By Contac t Referred To Contact Cardiac Surgery Diagnoses aortic stenosis, consideration for valve replacement Antelmo Burrell MD [address] [place] [address] [place] [address] Alirio Esparza MD [facility] DR [place] [address] Referral ID Status Reason Start Date Expiration Date V isits Requested Visits Authorized [id number] Closed Connection Center 03/04/2016 03/04/2017 1 1 Encounter Details Date Type Department Care Team (Late st Contact Info) Description 03/24/2016 10:40 AM EDT Office [place] [phone] Alirio Esparza MD Aortic valve stenosis, unspecified [...] This is a patient of Antelmo Burrell [facility] Cardiology. Mrs. Thacker is being sent for [...] 30 minute visit, 20 minutes were spent [id number] with the patient discussing aortic stenosis and valve replacement. documented in this encounter Plan of Treatment Upcoming Encounters Date Type Department Care Team (Late st Contact Info) Description 06/23/2024 2:00 PM EST Office Visit [place] [address] Markel Borjas MD [facility] DR [place] [address] 11/02/2024 12:00 PM EDT Appointment Pulmonology at [place] [phone] 11/02/2024 1:00 PM EDT Office [place] [phone] Magdalena Peralta MD [facility] [place] [address] 03/01/2025 4:15 PM EDT Office Visit Dermatology at [place] [address] [place] [phone] Marek Bonilla MD [address] [place] [address] documented as of this encounter Visit Diagnoses Diagnosis Aortic valve stenosis, unspecified etiology documented in this encounter Care Teams Drilling Inspector Relationship Specialty Start Date End Date Deborah Quiroga APRN PCP - General Family Medicine 03/24/16 02/04/23 documented as of this encounter
--- OUTSIDE RECORDS SUMMARY | 2024-06-13 14:16 | XMS_ITS | Encounter Summary ---
Author Organization [facility] Address [facility] [place] [address] Care Team Providers Care Shredding Specialist Name Role Phone Ashley Quirogazac Shields APRN Primary Care Provider [phone] Encounter Details Date Type Department Care Team (Latest Contact Info) Description 05/19/2016 11:20 AM EDT Laboratory Appointment Lab at [place] [phone] Nonrheumatic aortic valve stenosis Social History Tobacco [...] EST Office Visit Hematology and Oncology at [place] [phone] Markel Borjas MD [facility] DR [place] [address] 11/02/2024 12:00 PM EDT Appointment Pulmonology at [place] [phone] 11/02/2024 1:00 PM EDT Office Visit Rheumatology at [place] [phone] Magdalena Peralta MD [facility] [place] [address] 03/01/2025 4:15 PM EDT Office Visit Dermatology at [place] [address] [place] [phone] Marek Bonilla MD [address], [place] [address] documented as of this encounter Procedures Procedure [...] [facility] RBC Morphology Normal [facility] Blood specimen (specimen) 05/19/2016 11:32 AM EDT 05/19/2016 11:41 AM EDT Narrative Resulting Agency Comment Spec In Lab Alirio Esparza MD HEMATOLOGY ORDERABL ES [facility] [place] [address] * (ABNORMAL) Differential, Automated (05/19/2016 11:32 AM EDT) Neutrophil % 25.9 % [facility] Monocyte % 13.0 % [facility] Monocyte Abs 0.2(L) 0.3 - 0.9 x10(3)/mc L [facility] Eos % 0.6 % [facility] Eosinophils Abs 0.0 0.0 - 0.4 x10(3)/mc L [facility] Basophil % 0.6 % [facility] Baso Absolute 0.0 0.0 - 0.1 x10(3)/mc L [facility] Immature Gran % 0.00 % [facility] Comment: Immature granulocytes(IG's)percentage and absolute count will include metamyelocytes, myelocytes, and promyelocytes. Blood smears from CBCs yielding IG's will be scanned manually for concordance. If this scan disagrees with the automated IG or if promyelocytes are noted, a manual differential will be performed. Immature Gran Absolute 0.00 0.00 - 0.04 x10(3)/mc L [facility] Blood specimen (specimen) 05/19/2016 11:32 AM EDT 05/19/2016 11:41 AM EDT Narrative Resulting Agency Comment Spec In Lab Alirio Esparza MD HEMATOLOGY ORDERABL ES Performing Organization Address City/[facility]/ZIP Co de Phone Number [facility] [place] [address] * (ABNORMAL) Hemogram (05/19/2016 11:32 AM EDT) White Blood Cell 1.6(Criti gabrielle) 4.0 - 9.5 x10(3)/mc L [facility] Comment: [...] [facility] NRBC% auto 0.0 % [facility] NRBC Absolute 0.000 0.000 - 0.000 x10(3)/mc L [facility] Blood specimen (specimen) 05/19/2016 11:32 AM EDT 05/19/2016 11:41 AM EDT Narrative Resulting Agency Comment Spec In Lab Alirio Esparza MD HEMATOLOGY ORDERABL ES [facility] [place] [address] * Antibody screen (05/19/2016 11:32 AM EDT) Ab Screen Interp Negative [facility] Expires at [id number] on: 07/03/2016 [facility] Comment: Corrected from 06/11/16 12:00 [Unknown] on 06/09/16 05:51 by Bethanie Tomlinson I.. Corrected from 07/03/16 12:00 [Unknown] on 05/21/16 06:00 by Shelia Barrera Blood specimen (specimen) 05/19/2016 11:32 AM EDT 05/19/2016 11:35 AM EDT Narrative Resulting Agency Comment Spec In Lab Alirio Esparza MD BLOOD BANK LAB [place] Performing Organization Address City/[facility]/ZIP Co de Phone Number [facility] [place] [address] * ABO/Rh Typing (05/19/2016 11:32 AM EDT) Pathologist [facility] Type B Pos [facility] Blood specimen (specimen) 05/19/2016 11:32 AM EDT 05/19/2016 11:35 AM EDT Narrative Resulting Agency Comment Spec In Lab Alirio Esparza MD BLOOD BANK LAB [place] [facility] [place] [address] * Basic Metabolic Panel (non-fasting) (05/19/2016 11:32 AM EDT) [facility] Glucose 86 65 - 199 mg/dL [facility] [...] the following links into your internet browser. [email or web address] Blood specimen (specimen) 05/19/2016 11:32 AM EDT 05/19/2016 11:41 AM EDT Narrative Resulting Agency Comment Spec In Lab Alirio Esparza MD CHEMISTRY ORDERABLE S [facility] [place] [address] documented in this encounter Visit Diagnoses Diagnosis Nonrheumatic aortic valve stenosis Aortic valve disorders documented in this encounter Care Teams Shredding Specialist Relationship Specialty Start Date End Date Deborah Quiroga APRN PCP - General Family Medicine 03/24/16 02/04/23 documented as of this encounter
--- OUTSIDE RECORDS SUMMARY | 2024-06-13 14:16 | XMS_ITS | Encounter Summary ---
[place] [address] Care Team Providers Care Blast Setter Name Role Phone Mitchell Wilkes MD Primary Care Provider [phone] Reason for Visit * Reason Onset Date Comments Other 01/18/2014 Encounter Details Date Type Department Care Team (Late st Contact Info) Description 01/18/2014 Telephone Cardiology at [address] [address] Jesusita Garces Other Social History [...] EST Office Visit Hematology [place] [address] Markel Borjas MD [facility] DR HEMATOLOGY [place] [address] 11/02/2024 12:00 PM EDT Appointment Pulmonology at [place] [address] 11/02/2024 1:00 PM EDT Office Visit Rheumatology at [place] [phone] Magdalena Peralta MD [facility] [place] [address] 03/01/2025 4:15 PM EDT Office Visit Dermatology at [place] [address] [place] [address] Marek Bonilla MD [address] [place] [address] documented as of this encounter Visit Diagnoses Not on filedocumented in this encounter Care Teams Blast Setter Relationship Specialty Start Date End Date Mitchell Wilkes MD [facility] PCP - General 06/24/10 01/19/14 documented as of this encounter
--- OUTSIDE RECORDS SUMMARY | 2024-06-13 14:16 | XMS_ITS | Encounter Summary ---
Author Organization [facility] [place] [address] Care Team Providers Care Radiation Oncology Therapist Name Role Phone Jerel Sofia Garcia APRN Primary Care Provider [phone] Encounter Details Date Type Department Care Team (Latest Contact Info) Description 11/12/2014 8:10 AM EDT - 11/12/2014 11:59 PM EDT Hospital [place] [phone] CLINIC, DR ABE Burrell, Antelmo Porter MD [facility] [address] [place], [place] [address] Discharge Disposition: Home Social History Tobacco Use [...] EST Office Visit H[place] [phone] Makrel Borjas MD [facility] DR HEMATOLOGY [place] [address] 11/02/2024 12:00 PM EDT Appoint[place] [phone] 11/02/2024 1:00 PM EDT Office [place] [phone] Magdalena Peralta MD [facility] [place] [address] 03/01/2025 4:15 PM EDT Office Visit Dermatology at [place] [address] [facility] [place] [address] Marek Bonilla MD [address] [facility], [place] [address] documented as of this encounter Procedures Procedure [...] mLs documented in this encounter Care Teams Radiation Oncology Therapist Relationship Specialty Start Date End Date Sofia Beltrán APRN [address] [place] [address] PCP - General 11/12/14 03/23/16 documented as of this encounter
--- OUTSIDE RECORDS SUMMARY | 2024-06-13 14:16 | XMS_ITS | Encounter Summary ---
Author Organization Formerly [facility], [facility] [place] [address] Care Team Providers Care Pneumatic Deicer Inspector Name Role Phone Ashley Quirogazac Shields APRN Primary Care Provider [phone] Encounter Details Date Type Department Care Team (Late st Contact Info) Description 03/24/2016 Notes Only [place] [phone] Alfa Lua Social History Tobacco Use Types [...] assessments completed: Wadsworth Score: 6/6 IADL: 7/7 Pulmonology Physician Strength Trials: 18.4, 15.0, 16.8 (right hand dominant) 5 meter walk test in seconds x3: 4.98, 4.88, 4.45 KCCQol: 98% Alfa Lua documented in this encounter Plan of Treatment Upcoming Encounters Date Type Department Care Team (Late st Contact Info) Description 06/23/2024 2:00 PM EST Office Visit Hematology [place] [address] Markel Borjas MD [facility] [address] [place] [address] 11/02/2024 12:00 PM EDT Appointment Pulmonology at [place] [address] 11/02/2024 1:00 PM EDT Office [place] [address] Magdalena Peralta MD [facility] [place] [address] 03/01/2025 4:15 PM EDT Office Visit Dermatology at [place] [address] [facility] [place] [phone] Marek Bonilla MD [address], [place] [address] documented as of this encounter Visit Diagnoses Not on filedocumented in this encounter Care Teams Pneumatic Deicer Inspector Relationship Specialty Start Date End Date Deborah Quiroga APRN PCP - General Family Medicine 03/24/16 02/04/23 documented as of this encounter
--- OUTSIDE RECORDS SUMMARY | 2024-06-15 14:08 | XMS_ITS | Encounter Summary ---
Author Organization [facility] Address [facility] [place] [address] Care Team Providers Care Trash Hauler Name Role Phone Magdalena Acosta MD Primary Care Provider [phone] Encounter Details Date Type Department Care Team [...] Office Visit Hematology [place] [address] Markel Borjas MD [facility] [address] [place] [address] 11/02/2024 12:00 PM EDT Appointment [place] [address] 11/02/2024 1:00 PM EDT Office Visit [place] [address] Magdalena Peralta MD [facility] [place] [address] 03/01/2025 4:15 PM EDT Office Visit Dermatology at [place] [address] [facility] [place] [phone] Marek Bonilla MD [address], [address] Katherine [place] [address] documented as of this encounter Visit Diagnoses Not on filedocumented in this encounter Care Teams Trash Hauler Relationship Specialty Start Date End Date Magdalena Acosta MD [address] [place] [address] PCP - General Family Medicine 02/05/23 documented as of this encounter
--- OUTSIDE RECORDS SUMMARY | 2024-06-15 14:08 | XMS_ITS | Encounter Summary ---
Author Organization [facility] Address [address] [place] [address] Care Team Providers Care Maintenance Pipefitter Name Role Phone Unavailable Primary Care Provider Unavailabl e Encounter Details Date Type Department Care Team (Late st Contact Info) Description 03/24/2007 11:06 EDT - 03/24/2007 11:59 EDT Hospital Encounter [facility] - Other [address] [place] [address] Ashley Chavez ARNP [address] [place] [address] Discharge Disposition: Home or Self Care Social [...]
--- OUTSIDE RECORDS SUMMARY | 2024-06-15 14:08 | XMS_ITS | Encounter Summary ---
Author Organization [facility] Address [address] [place] [address] Care Team Providers Care Director College Name Role Phone Ashley Chavez Primary Care Provider [phone] Encounter Details Date Type Department Care Team (Late st Contact Info) Description 05/12/2022 Lab Requisition [facility] Pathology & Laboratory Medicine - [address] [address] Outr Resulting Lab, Provider Social History Tobacco [...] 14:32 EDT) Hold Hold 05/12/2022 22:46 EDT [facility] Blood VENOUS BLOOD / Unknown 05/12/2022 14:32 EDT 05/12/2022 21:40 EDT us Provider Outr Resulting Lab LAB INFO SERVICE AND SUPPORT & PHONE RESULT Final Result Performing Organization Address [facility] Co de Phone Number [facility] [address] [place] [address] * (ABNORMAL) HOMOCYSTEINE (05/12/2022 14:32 EDT) Homocysteine 14.7(H) 5.0 - 13.9 umol/L 05/13/2022 9:05 EDT [facility] Comment:Results may be false ly elevated if sample is not collected on ice or is not removed from cells within 1 hour of collection. Blood VENOUS BLOOD / Unknown 05/12/2022 14:32 EDT 05/12/2022 21:40 EDT Narrative [facility] - 05/13/2022 9:05 EDT [...] S ORDERABLES Final Result Performing Organization Address [facility] Co de Phone Number [facility] [address] [place] [address] * HAPTOGLOBIN (05/12/2022 14:32 EDT) Haptoglobin 138 32 - 197 mg/dL 05/13/2022 9:55 EDT [facility] Blood VENOUS BLOOD / Unknown 05/12/2022 14:32 EDT 05/12/2022 21:36 EDT us Provider Outr Resulting Lab CHEMISTRY & BLOOD GA S ORDERABLES Final Result Performing Organization Address [facility]/State/ZIP Co de Phone Number [facility] [address] [place] [address] * (ABNORMAL) ANTI NUCLEAR AB (FRANCISCO), IFA (05/12/2022 14:32 EDT) FRANCISCO Interpretation Positive(A) Negative 05/13/2022 14:44 EDT [facility] Comment: Result is equal to or greater than 1:5120. For titers greater than or equal to 1:160 (except the centromere, nucleolar, and dense fine speckled patterns) it is recommended that specific, follow-up autoantibody testing (such as for dsDNA and Extractable Nuclear Antigens) be performed on all diffuse and/or speckled patterns. FRANCISCO Titer and Pattern 1 1:5120 Speckled 05/13/2022 14:44 EDT [facility] Blood VENOUS BLOOD / Unknown 05/12/2022 14:32 EDT 05/12/2022 21:36 EDT Narrative [facility] - 05/13/2022 14:44 EDT Results were obtained with the INOVA NOVA Lite HEp-2 FRANCISCO Kit by indirect immunofluorescence. us Provider Outr Resulting Lab IMMUNOLOGY AND SEROL OGY ORDERABLES Final Result [facility] [address] [place] [address] documented in this encounter Visit Diagnoses Not on filedocumented in this encounter Care Teams Director College Relationship Specialty Start Date End Date Ashley Chavez ARNP [facility] [place] [address] PCP - General 07/11/10 documented as of this encounter
--- OUTSIDE RECORDS SUMMARY | 2024-06-15 14:08 | XMS_ITS | Encounter Summary ---
Author Organization [facility] Address [address] [place] [address] Care Team Providers Care Materials Manager Name Role Phone Ashley Chavez Primary Care Provider Encounter Details Date Type Department Care Team (Late st Contact Info) Description 12/17/2021 Lab Requisition [facility] Pathology & Laboratory Medicine - [address] [address] Outr Resulting Lab, Provider Social History Tobacco [...] Negative Negative 12/18/2021 10:37 EDT [facility] Blood VENOUS BLOOD / Unknown 12/17/2021 13:30 EDT 12/17/2021 21:32 EDT us Provider Outr Resulting Lab IMMUNOLOGY AND SEROL OGY ORDERABLES Final Result Performing Organization Address [facility] [address] [facility] Co de Phone Number [facility] [address] [place] [address] * (ABNORMAL) ANTI NUCLEAR AB (FRANCISCO), IFA (12/17/2021 13:30 EDT) FRANCISCO Interpretation Positive(A) Negative 12/18/2021 16:06 EDT [facility] Comment: For titers [...] 1:1280 Speckled 12/18/2021 16:06 EDT [facility] Blood VENOUS BLOOD / Unknown 12/17/2021 13:30 EDT 12/17/2021 21:32 EDT Narrative [facility] - 12/18/2021 16:06 EDT Results were obtained with the INOVA NOVA Lite HEp-2 FRANCISCO Kit by indirect immunofluorescence. us Provider Outr Resulting Lab IMMUNOLOGY AND SEROL OGY ORDERABLES Final Result Performing Organization Address [facility] [address]/[facility] Co de Phone Number [facility] [address] [place] [address] documented in this encounter Visit Diagnoses Not on filedocumented in this encounter Care Teams Materials Manager Relationship Specialty Start Date End Date Ashley Chavez ARNP [address] [place], [place] [phone] PCP - General 07/11/10 documented as of this encounter
--- OUTSIDE RECORDS SUMMARY | 2024-06-15 14:08 | XMS_ITS | Encounter Summary ---
Author Organization [facility] Address [address] [place] [address] Care Team Providers Care Needle Punch Operator Name Role Phone Unavailable Primary Care Provider Unavailabl e Encounter Details Date Type Department Care Team (Late st Contact Info) Description 03/24/2007 Results Only [facility] Non-Invasive Cardiology - [facility] [address] [place], [place] [address] Ashley Chavez, WILLIAM [address] [place] [address] Social History Tobacco Use Types Packs/Day Years [...] ? PURNIMA THACKER ? Accession #: ? [id number] : ? 1955 (Age: 51) ??F ?Collect Date: ? 03/24/2007 Location: ? [facility] ? Receive Date: ? 03/28/2007 Provider: ?ASHLEY THOMAS Copy to: ? Specimen/Source: ?ThinPrep Pap Test, Endocervix, processed on [email or web address] ThinPrep Imaging System, with manual evaluation Last [...] ORDERABLES Final Res ult PAUL ARELLANO [address] [place] [address] documented in this encounter Visit Diagnoses Not on filedocumented in this encounter
--- OUTSIDE RECORDS SUMMARY | 2024-06-15 14:08 | XMS_ITS | Encounter Summary ---
Author Organization [facility] Address [address] [place] [address] Care Team Providers Care Digital Publishing Specialist Name Role Phone Ashley Chavez Primary Care Provider [phone] Encounter Details Date Type Department Care Team (Late st Contact Info) Description 03/21/2024 Lab Requisition [facility] Pathology & Laboratory Medicine - [address] [address] Outr Resulting Lab, Provider Social History Tobacco [...] 32 - 197 mg/dL 03/22/2024 10:25 EDT [facility] Blood VENOUS BLOOD / Unknown 03/21/2024 13:00 EDT 03/21/2024 21:50 EDT us Provider Outr Resulting Lab CHEMISTRY & BLOOD GA S ORDERABLES Final Result Performing Organization Address [facility]/State/ZIP Co de Phone Number [facility] [address] [place] [address] documented in this encounter Visit Diagnoses Not on filedocumented in this encounter Care Teams Digital Publishing Specialist Relationship Specialty Start Date End Date Ashley Chavez ARNP [address] [place] [address] PCP - General 07/11/10 documented as of this encounter
--- OUTSIDE RECORDS SUMMARY | 2024-06-15 14:08 | XMS_ITS | Encounter Summary ---
Author Organization [facility] Address [address] [place] [address] Care Team Providers Care Needle Polisher Name Role Phone Ashley Chavez Primary Care Provider Encounter Details Date Type Department Care Team (Latest Contact Info) Description 05/12/2019 13:18 EDT - 05/12/2019 23:59 EDT Hospital Encounter [address] [address] Unknown, Provider, MD Discharge Disposition: Home or [...] Code Departure Means Destination Home or Self Long-Term documented in this encounter Plan of Treatment Not on file documented as of this encounter Visit Diagnoses Not on filedocumented in this encounter Care Teams Needle Polisher Relationship Specialty Start Date End Date Ashley Chavez ARNP [address] [place] [address] PCP - General 07/11/10 documented as of this encounter
--- OUTSIDE RECORDS SUMMARY | 2024-06-15 14:08 | XMS_ITS | Encounter Summary ---
Author Organization [facility] Address [address] [place] [address] Care Team Providers Care Taper Printed Circuit Layout Name Role Phone Scott Ashley WILLIAM Primary Care Provider Encounter Details Date Type Department Care Team (Late st Contact Info) Description 11/10/2013 Results Only [facility] [phone] Jeni Laird, SUPERVISOR PIPELINES [address] [place], [place] [address] Social History Tobacco Use Types Packs/Day Years [...] ? PURNIMA THACKER ? Accession #: ? [id number] : ? 1955 (Age: 58) ??F ?Collect Date: ? 11/10/2013 Location: ? [facility] ? Receive Date: ? 11/14/2013 Provider: ?JENI LAIRD SUPERVISOR PIPELINES Copy to: ? Specimen/Source: ?Pap Test, Endocervix, [...] PAUL ARELLANO 11/10/2013 11/14/2013 us Jeni Laird SUPERVISOR PIPELINES PATHOLOGY ORDERABLES Magy morgan Result PAUL ARELLANO [address] [place] [address] documented in this encounter Visit Diagnoses Not on filedocumented in this encounter Care Teams Taper Printed Circuit Layout Relationship Specialty Start Date End Date Ashley Chavez ARNP [address] [place] [address] PCP - General 07/11/10 documented as of this encounter
--- OUTSIDE RECORDS SUMMARY | 2024-06-15 14:08 | XMS_ITS | Encounter Summary ---
Author Organization [facility] Address [facility] [place] [address] Care Team Providers Care Beef Skinner Name Role Phone Magdalena Acosta MD Primary Care Provider [phone] Reason for Visit * Reason Comments Follow-up * Consultation (Routine) - Closed Specialty Diagnoses / Procedures Referred By Contac t Referred To Contact Hematology and Oncology Diagnoses Anemia, unspecified type Consuelo Guerrero, DO [address] [facility] [place] [address] [place] [address] [facility] Hem Onc [address] [place] [address] Referral ID Status Reason Start Date Expiration Date V isits Requested Visits Authorized [id number] Closed Consult, Test & Treat 04/11/2024 04/11/2025 1 1 Encounter Details Date Type Department Care Team (Late st Contact Info) Description 05/12/2024 10:00 AM EDT Office Visit [place] [address] Markel Borjas MD [facility] [address] HEMATOLOGY [place] [address] Chronic idiopathic neutropenia Social History [...] 05/12/2024 10:00 AM EDT Hematology Outpatient Clinic [facility] Hematology Outpatient Consult Note [...] TOUCH PREP, CLOT SECTION, CORE BIOPSY); [OSR# [id number], COLLECTED 06/23/2016, 19 SLIDES]: 1. 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 pantoprazole EC (Protonix) 40 [...] intact. Extremities: No edema. Labs: Hgb= 11.7 Zrdl=853 ANC= 2.5 Assessment: 60 year-old woman found [...] Visit [place] [address] Markel Borjas MD [facility] [address] HEMATOLOGY [place] [address] 11/02/2024 12:00 PM EDT Appoint[place] [address] 11/02/2024 1:00 PM EDT Office [place] [address] Magdalena Peralta MD [facility] [place] [address] 03/01/2025 4:15 PM EDT Office Visit Dermatology at [place] [address] [place] [address] Marek Bonilla MD [address] [place] [address] documented as of this encounter Results * Reticulocyte Count (05/12/2024 8:56 AM EDT) [facility] Reticulocyte % 1.20 0.70 - 2.50 % 05/12/2024 9:32 AM EDT [facility] Retic Abs # 0.0397 0.0200 - 0.1100 x10(6)/mcL 05/12/2024 9:32 AM EDT [facility] Immature Retic% 8.1 0.5 - 13.8 % 05/12/2024 9:32 AM EDT [facility] Reticulated Hgb 35.2 29.8 - 39.4 pg 05/12/2024 9:32 AM EDT [facility] Blood VENOUS BLOOD SPECIMEN / Unknown Venipuncture / Unknown 05/12/2024 8:56 AM EDT 05/12/2024 8:56 AM EDT Tova Russell RENTAL CAR DELIVERER HEMATOLOGY ORDERABL ES [facility] [place] [address] * (ABNORMAL) Comprehensive metabolic panel Non-fasting (05/12/2024 8:56 AM EDT) [facility] Glucose 86 65 - 199 mg/dL 05/12/2024 11:36 AM EDT [facility] Comment:Glucose Concentratio n >=200 mg/dL plus symptoms is consistent with Diabetes Mellitus. Blood Urea Nitrogen 20(H) 8 - 18 mg/dL 05/12/2024 11:36 AM [facility] Creatinine 0.88 0.70 - 1.20 mg/dL 05/12/2024 11:36 AM [facility] Sodium 145 135 - 145 mMol/L 05/12/2024 11:36 AM [facility] Potassium 4.6 3.5 - 5.0 [...] 8.5 - 10.5 mg/dL 05/12/2024 11:36 AM [facility] Protein, Total 7.3 6.1 - 8.0 g/dL 05/12/2024 11:36 AM [facility] Albumin 4.5 3.2 - 5.2 g/dL 05/12/2024 11:36 AM [facility] Aspartate Aminotransferase 24 <=30 unit/L 05/12/2024 11:36 AM [facility] Alanine Aminotransferase 14 0 - 30 unit/L 05/12/2024 11:36 AM [facility] Alkaline Phosphatase 98 35 - 105 unit/L 05/12/2024 11:36 AM [facility] Bilirubin, Total 0.2 <=1.3 mg/dL 05/12/2024 11:36 AM [facility] Est Glomerular Filtration Rate - Female 72 mL/min/1. 73 m?? 05/12/2024 11:36 AM EDT [facility] Comment: This patient's [...] Fasting Status No 05/12/2024 11:36 AM EDT [facility] Blood VENOUS BLOOD SPECIMEN / Unknown Venipuncture / Unknown 05/12/2024 8:56 AM EDT 05/12/2024 8:56 AM EDT Tova Russell RENTAL CAR DELIVERER CHEMISTRY ORDERABLE S Performing Organization Address City/State/[facility] Co de Phone Number [facility] [place] [address] * (ABNORMAL) CBC (with Diff) (05/12/2024 8:56 AM EDT) White Blood Cell 3.47(L) 4.00 - 9.50 x10(3)/mc L 05/12/2024 9:32 AM EDT [facility] Red Blood Cell 3.31(L) 4.00 - 5.21 x10(6)/mc L 05/12/2024 9:32 AM EDT [facility] Hemoglobin 11.1(L) 11.7 - 15.5 g/dL 05/12/2024 9:32 AM EDT [facility] Hematocrit 33.2(L) 35.7 - 45.8 % 05/12/2024 9:32 AM EDT [facility] Mean Cell Volume 100.3(H) 82.6 - 94.4 fL 05/12/2024 9:32 AM EDT [facility] Mean Cell Hemoglobin 33.5(H) 27.1 - 32.0 pg 05/12/2024 9:32 AM [facility] Mean Cell Hemoglobin Concentration 33.4 31.7 - 35.0 g/dL 05/12/2024 9:32 AM [facility] Platelet 142(L) 145 - 357 x10(3)/mc L 05/12/2024 9:32 AM [facility] Mean Platelet Volume 8.7 7.6 - 12.9 fL 05/12/2024 9:32 AM [facility] RDW Standard Deviation 44.4 37.0 - 46.0 fL 05/12/2024 9:32 AM [facility] RDW coefficient of variation 12.0 11.5 - 14.1 % 05/12/2024 9:32 AM [facility] NRBC% auto 0.0 % 05/12/2024 [...] % 0.6 % 05/12/2024 9:32 AM EDT [facility] Eos Absolute <0.04 0.00 - 0.40 x10(3)/mc L 05/12/2024 9:32 AM EDT [facility] Basophil % 0.6 % 05/12/2024 9:32 AM EDT [facility] Baso Absolute <0.04 0.00 - 0.10 x10(3)/mc L 05/12/2024 9:32 AM EDT [facility] Immature Gran % 0.3 % 9:32 AM EDT [facility] Immature Gran Absolute <0.04 0.00 - 0.04 x10(3)/mc L 05/12/2024 9:32 AM EDT [facility] Blood VENOUS BLOOD SPECIMEN / Unknown Venipuncture / Unknown 05/12/2024 8:56 AM EDT 05/12/2024 8:56 AM EDT Tova Russell RENTAL CAR DELIVERER HEMATOLOGY ORDERABL ES [facility] [place] [address] documented in this encounter Visit Diagnoses Diagnosis Chronic idiopathic neutropenia Other neutropenia documented in this encounter Care Teams Beef Skinner Relationship Specialty Start Date End Date Magdalena Acosta MD [address] [place] [address] PCP - General Family Medicine 02/05/23 documented as of this encounter
--- OUTSIDE RECORDS SUMMARY | 2024-06-15 14:08 | XMS_ITS | Encounter Summary ---
[place] [address] Care Team Providers Care Video System Repairer Name Role Phone Magdalena Acosta MD Primary Care Provider [phone] Encounter Details Date Type Department Care Team (Late st Contact Info) Description 05/18/2024 Interpretation Only [address] [address] Magdalena Acosta MD [address] [place], [place] [id number] Social History Tobacco Use Types Packs/Day Years [...] EST Office Visit Hematology [place] [address] Markel Borjas MD [facility] [address] [place] [address] 11/02/2024 12:00 PM EDT Appointment [place] [phone] 11/02/2024 1:00 PM EDT Office [place] [address] Magdalena Peralta MD [facility] [place] [address] 03/01/2025 4:15 PM EDT Office Visit Dermatology at [place] [address] [place] [phone] Marek Bonilla MD [address], [place] [address] documented as of this encounter Procedures Procedure Name Priority Date/Time Associated Diagnosis Comments DXA CENTRAL SPINE, HIP, AND/OR WHOLE BODY (GENERIC) Routine 05/18/2024 11:21 AM EDT documented in this encounter Results * DXA Central Spine, Hip, and/or Whole Body (Generic) (05/18/2024 11:21 AM EDT) PT CLASS O RAD ADMITDTTM [id number] [facility] PT [facility] INFO [id number]^Dave ^Magdalena RAD EXAM DESC XDXAC^BD Bone Density DEXA Axial Skeleton^RIS [facility] WORKSTATION ID RADDRIMAGE [facility] Anatomical Region Laterality Modality C-spine, Hip [...] questions please contact the health customer care associate that requested your imaging first. ? Electronically signed by: Rocael Villatoro MD, [facility] ([phone]), at 05/18/2024 11:25 AM Narrative 05/18/2024 11:25 [...] have questions please contactthe health customer care associate that requested your imaging first. Electronically signed by: Rocael Villatoro MD, [facility]([phone]), at 05/18/2024 11:25 AM Magdalena Acosta MD IMG DEXA ORDERABLES documented in this encounter Visit Diagnoses Not on filedocumented in this encounter Care Teams Video System Repairer Relationship Specialty Start Date End Date Magdalena Acosta MD [address] [place] [address] PCP - General Family Medicine 02/05/23 documented as of this encounter
--- OUTSIDE RECORDS SUMMARY | 2024-06-15 14:08 | XMS_ITS | Encounter Summary ---
Author Organization [facility] Address [address] [place] [address] Care Team Providers Care Editor Publications Name Role Phone Ashley Chavez Primary Care Provider [phone] Encounter Details Date Type Department Care Team (Late st Contact Info) Description 01/07/2023 Lab Requisition [facility] Pathology & Laboratory Medicine - [address] [address] Outr Resulting Lab, Provider Social History Tobacco [...] S ORDERABLES Final Result Performing Organization Address [facility] de Phone Number [facility] [address] [place] [address] * PROTEIN, TOTAL (01/06/2023 14:40 EDT) Blood VENOUS BLOOD / Unknown 01/06/2023 14:40 EDT 01/07/2023 17:37 EDT us Provider Outr Resulting Lab CHEMISTRY & BLOOD GA S ORDERABLES Final Result Performing Organization Address [facility] de Phone Number [facility] [address] [place] [address] * (ABNORMAL) EXTRACTABLE NUCLEAR ANTIGEN PANEL (01/06/2023 14:40 EDT) SSA Antibody 1.3 <20.0 Units 01/08/2023 15:42 EDT [facility] Comment: ? Negative: <20.0 Units ? Weak Positive: 20.0 - 39.9 Units ? Moderate Positive: 40.0 - 80.0 Units ? Strong Positive: >80.0 Units Results were obtained with the [employer] QUANTA Lite SS-A DOMO. ??SS-A values obtained [...] >80.0 Units Results were obtained with the [facility] QUANTA Lite SS-B DOMO. ??SS-B values obtained [...] cannot be correlated to an endpoint titer. FINANCIAL SUPERVISOR Antibody 149.1(H) <20.0 Units 01/08/2023 15:42 [facility] Comment: ? Negative: <20.0 Units ? Weak Positive: 20.0 - 39.9 Units ? Moderate Positive: 40.0 - 80.0 Units ? Strong Positive: >80.0 Units Results were obtained with the [employer] Quanta Lite FINANCIAL SUPERVISOR DOMO. FINANCIAL SUPERVISOR values obtained with different it compliance manager's assay methods may not be used interchangeaby. ??The magnitude of the reported IgG levels cannot be be correlated to an endpoint titer. A positive result in the Quanta Lite FINANCIAL SUPERVISOR DOMO indicates the presence of antibodies reactive with the FINANCIAL SUPERVISOR/Sm complex but cannot distinguish between anti-Sm and anti-FINANCIAL SUPERVISOR activity. Blood VENOUS BLOOD / Unknown 01/06/2023 14:40 EDT 01/07/2023 17:37 EDT us Provider Outr Resulting Lab IMMUNOLOGY AND SEROL OGY ORDERABLES Final Result [facility] [address] [place] [address] * (ABNORMAL) ANTI NUCLEAR AB (FRANCISCO), IFA [...] IMMUNOLOGY AND SEROL OGY ORDERABLES Final Result [facility] [address] [place] [address] documented in this encounter Visit Diagnoses Not on filedocumented in this encounter Care Teams Editor Publications Relationship Specialty Start Date End Date Ashley Chavez ARNP [address] [place] [address] PCP - General 07/11/10 documented as of this encounter
--- OUTSIDE RECORDS SUMMARY | 2024-06-15 14:08 | XMS_ITS | Referral Summary ---
Author Organization [facility] Address [address] [place] [address] Care Team Providers Care Child Watch Attendant Name Role Phone Nicole Chavezi WILLIAM Primary Care Provider Encounters Date Type Department Care Team Description 03/22/2024 Lab Requisition [facility] Pathology & Laboratory [address] [address] Consuelo Guerrero, DO Diaphragmatic hernia without obstruction or gangrene; Anemia, unspecified 03/21/2024 Lab Requisition [facility]ology & Laboratory [address] [address] Consuelo Guerrero, DO Encounter for other general examination 03/21/2024 Lab Requisition [facility]ology & Laboratory [address] [address] Outr Resulting Lab, Provider from Last 3 [...] BANK TESTS Final Result Performing Organization Address [facility]/ZIP Co de Phone Number [facility] [address] [place] [address] * HAPTOGLOBIN (03/21/2024 13:00 EDT) Haptoglobin 183 32 - 197 mg/dL 03/22/2024 10:25 EDT [facility] Blood VENOUS BLOOD / Unknown 03/21/2024 13:00 EDT 03/21/2024 21:50 EDT us Provider Outr Resulting Lab CHEMISTRY & BLOOD GA S ORDERABLES Final Result Performing Organization Address City/[facility]/ZIP Co de Phone Number [facility] [address] [place] [address] * SURGICAL PATHOLOGY (03/21/2024 11:35 EDT) Note [...] Deeper sections x3 examined. 03/24/2024 10:36 [facility] Attestation There was significant resident/fellow involvement in the diagnostic evaluation of this case. By the signature below, the attending physician certifies that they have personally conducted a gross and/or microscopic examination of the described specimens and rendered or confirmed the above diagnosis. 03/24/2024 10:36 [facility] at 1036 Clinical History Anemia, hiatal hernia, 38 cm aguayo diverticulosis 03/24/2024 10:36 [facility] Gross Description A. Received [...] SYSTEM [facility] Performing Lab [facility] 10:36 EDT [facility] [...] Guerrero DO PATHOLOGY ORDERABLES Final Re sult [facility] [address] [place] [address] from Last 3 Months Insurance MEDICARE [facility] Address: [address] [address] Care Teams Child Watch Attendant Relationship Specialty Start Date End Date Ashley Chavez ARNP [address] [place] [address] PCP - General 07/11/10
--- OUTSIDE RECORDS SUMMARY | 2024-06-15 14:08 | XMS_ITS | Encounter Summary ---
[place] [address] Care Team Providers Care Silver Wrapper Name Role Phone Magdalena Acosta MD Primary Care Provider [phone] Encounter Details Date Type Department Care Team (Late st Contact Info) Description 05/18/2024 Interpretation Only [address] [address] Magdalena Acosta MD [address] [place], [place] [id number] Social History Tobacco Use Types Packs/Day Years [...] EST Office Visit Hematology [place] [address] Markel Borjas MD [facility] [address] HEMATOLOGY [place] [address] 11/02/2024 12:00 PM EDT Appointment [place] [address] 11/02/2024 1:00 PM EDT Office [place] [address] Magdalena Peralta MD [facility] [place] [address] 03/01/2025 4:15 PM EDT Office Visit Dermatology at [place] [address] [place] [phone] Marek Bonilla MD [address], [place] [address] documented as of this encounter Procedures Procedure Name Priority Date/Time Associated Diagnosis Comments MAMMO SCREENING CAD BILATERAL (CH) Routine 05/18/2024 11:21 AM EDT documented in this encounter Results * MAMMO SCREENING CAD BILATERAL (CH) (05/18/2024 11:21 AM EDT) PT CLASS O RAD ADMITDTTM [id number] RAD PT RAD INFO [id number]^Dave ^Magdalena RAD EXAM DESC [facility]^MG Mammo Digital Screening Bilateral.^RIS RAD WORKSTATION [...] questions please contact the health clinical care manager that requested your imaging first. ? Electronically signed by: Rocael Villatoro MD, [facility] ([phone]), at 05/18/2024 3:[address] ??[address] Narrative 05/18/2024 3:05 PM EDT EXAMINATION: MG [...] have questions please contactthe health clinical care manager that requested [place] [address] Magdalena Acosta MD [facility] documented in this encounter Visit Diagnoses Not on filedocumented in this encounter Care Teams Silver Wrapper Relationship Specialty Start Date End Date Magdalena Acosta MD [address] [place] [address] PCP - General Family Medicine 02/05/23 documented as of this encounter
--- OUTSIDE RECORDS SUMMARY | 2024-06-15 14:08 | XMS_ITS | Encounter Summary ---
Author Organization [facility] Address [address] [place] [address] Care Team Providers Care Stock Fitter Name Role Phone Ashley Chavez Primary Care Provider [phone] Encounter Details Date Type Department Care Team (Late st Contact Info) Description 04/29/2022 Lab Requisition [facility] Pathology & Laboratory Medicine - [address] [address] Outr Resulting Lab, Provider Social History Tobacco [...] ORDERABLES Final Result Performing Organization Address [facility] de Phone Number [facility] [address] [place] [address] * SSA ANTIBODIES BY DOMO (04/29/2022 7:51 [...] ORDERABLES Final Result Performing Organization Address [facility] de Phone Number [facility] [address] [place] [address] documented in this encounter Visit Diagnoses Not on filedocumented in this encounter Care Teams Stock Fitter Relationship Specialty Start Date End Date Ashley Chavez ARNP [address] [place] [address] PCP - General 07/11/10 documented as of this encounter
--- OUTSIDE RECORDS SUMMARY | 2024-06-15 14:08 | XMS_ITS | Clinical Summary ---
Author Organization [facility] Address [address] [place] [address] Care Team Providers Care Metal Technician Name Role Phone Ashley Chavez Primary Care Provider [phone] Encounters Date Type Department Care Team Description 03/22/2024 Lab Requisition [facility] Pathology & Laboratory [address] [address] Consuelo Guerrero, DO Diaphragmatic hernia without obstruction or gangrene; Anemia, unspecified 03/21/2024 Lab Requisition [facility] Pathology & Laboratory [address] [address] Consuelo Guerrero, DO Encounter for other general examination 03/21/2024 Lab Requisition [facility] Pathology & Laboratory [address] [address] Outr Resulting Lab, Provider from Last 3 [...] 13:00 EDT) LORY Negative 03/21/2024 22:31 EDT [facility] Blood VENOUS BLOOD / Unknown 03/21/2024 13:00 EDT 03/21/2024 21:51 EDT Consuelo Guerrero DO BLOOD BANK TESTS Final Result Performing Organization Address City/[facility] [address]/ZIP Co de Phone Number [facility] [address] [place] [address] * HAPTOGLOBIN (03/21/2024 13:00 EDT) Haptoglobin 183 32 - 197 mg/dL 03/22/2024 10:25 EDT [facility] Blood VENOUS BLOOD / Unknown 03/21/2024 13:00 EDT 03/21/2024 21:50 EDT us Provider Outr Resulting Lab CHEMISTRY & BLOOD GA S ORDERABLES Final Result [facility] [address] [place] [address] * SURGICAL PATHOLOGY (03/21/2024 11:35 EDT) Note to Patient The following pathology results have been interpreted by your pathologist and may be available to you before your health provider has had the opportunity to review them. Please allow time for your provider to receive these results and explore management options, if applicable. 03/24/2024 10:36 [facility] Final Diagnosis A. [...] - Deeper sections x3 examined. 03/24/2024 10:36 [facility] Attestation There was significant resident/fellow involvement in the diagnostic evaluation of this case. By the signature below, the attending physician certifies that they have personally conducted a gross and/or microscopic examination of the described specimens and rendered or confirmed the above diagnosis. 03/24/2024 10:36 [facility] at 1036 Clinical History Anemia, hiatal hernia, 38 cm aguayo diverticulosis 03/24/2024 10:36 [facility] Gross Description A. [...] Luis Torres 03/22/2024 9:36 03/24/2024 10:36 EDT [facility] Resident/Estuardo w: Luis Felipe Bragg DO 03/24/2024 10:36 T [facility] Performing Lab [facility] 10:36 T [facility] Scanned Images 03/24/2024 10:36 T [facility] Tissue POLYP [...] Guerrero DO PATHOLOGY ORDERABLES Final Re sult [facility] [address] [place] [address] from Last 3 Months Insurance MEDICARE [facility] Care Teams Metal Technician Relationship Specialty Start Date End Date Ashley Chavez ARNP [address] [place] [address] PCP - General 07/11/10
--- OUTSIDE RECORDS SUMMARY | 2024-06-15 14:08 | XMS_ITS | Encounter Summary ---
Author Organization [facility] Address [address] [place] [address] Care Team Providers Care Pile Driver Operator Barge Mounted Name Role Phone Unavailable Primary Care Provider Unavailabl e Encounter Details Date Type Department Care Team (Late st Contact Info) Description 06/29/2007 Results Only [facility] [address] [place] [address] Sánchez Acevedo MD [address] [place] [id number] Social History Tobacco Use Types Packs/Day Years [...] ? PURNIMA THACKER ? Accession #: ? [id number] ? : ? 1955 (Age: 51) ??F [...] covered by a smooth white serosa. ??Three operations support representative sections of the gallbladder are submitted in one cassette. ??(Sriram Scott)/[facility] End of Report PAUL OSORIO [facility] 06/29/2007 06/29/2007 21: 23 EST us Sánchez Acevedo MD PATHOLOGY ORDERABLES Final Result Performing Organization Address City/State/[facility] Co de Phone Number PAUL [address] [address] documented in this encounter Visit Diagnoses Not on filedocumented in this encounter
--- OUTSIDE RECORDS SUMMARY | 2024-06-15 14:08 | XMS_ITS | Encounter Summary ---
Author Organization [facility] Address [facility] [place] [address] Care Team Providers Care Parts Control Clerk Name Role Phone Magdalena Acosta MD Primary Care Provider [phone] Reason for Visit * Reason Onset Date Comments Medication Refill 05/24/2024 Encounter Details Date Type Department Care Team (Late st Contact Info) Description 05/24/2024 [place] [address] Magdalena Peralta MD [facility] [place] [address] Social History Tobacco Use Types Packs/Day Years Used Date Smoking Tobacco: Never Smokeless Tobacco: Never Alcohol Use Standard Drinks/Week Comments No 0 (1 standard drink = 0.6 oz pur e alcohol) none [facility] Inpatient Questions Answer Date Recorded [...] 200 mg tablet [facility] - [place], [place] - [address] [facility] [facility] [address] [facility] [address] documented in this encounter Plan of Treatment Upcoming Encounters Date Type Department Care Team (Late st Contact Info) Description 06/23/2024 2:00 PM EST Office Visit [place] [address] Markel Borjas MD [facility] DR [place] [address] 11/02/2024 12:00 PM EDT [place] [address] 11/02/2024 1:00 PM EDT [place] [address] Magdalena Peralta MD [facility] [place] [address] 03/01/2025 4:15 PM EDT Office Visit Dermatology at [address] [place] [phone] Marek Bonilla MD [address] [facility] [facility] [facility], [place] [address] documented as of this encounter Visit Diagnoses Not on filedocumented in this encounter Care Teams Parts Control Clerk Relationship Specialty Start Date End Date Magdalena Acosta MD [address] [place] [address] PCP - General Family Medicine 02/05/23 documented as of this encounter
--- OUTSIDE RECORDS SUMMARY | 2024-06-15 14:08 | XMS_ITS | Encounter Summary ---
Author Organization [place] [address] Care Team Providers Care Partition Assembler Name Role Phone Magdalena Acosta MD Primary Care Provider [phone] Encounter Details Date Type Department Care Team (Latest Contact Info) Description 06/05/2024 1:04 PM EST - 06/05/2024 3:08 PM EST Hospital Encounter [facility] [place] [address] Markel Borjas MD [facility] [address] [place] [address] Discharge Disposition: Home Social History Tobacco Use [...] on a weekend: Call the [facility] ross lift operator at and ask for the physician instructional assistant covering for your doctor. Instructions following sedation [...] drainage occurs, [place] [address] [email or web address] [facility] documented in this encounter Medications at [...] Verio test strips Strip USE DAILY 01/03/2022 [employer] Delica Plus Lancet 33 gauge Misc [...] Office Visit Hematology [place] [address] Markel Borjas MD [facility] [address] [place] [address] 11/02/2024 12:00 PM EDT Appointment [place] [address] 11/02/2024 1:00 PM EDT Office [place] [phone] Magdalena Peralta MD [facility] [address] RHEUMATOLOGY DEPT [place], [place] [phone] 03/01/2025 4:15 PM EDT Office Visit Dermatology at [place] [address] [place] [address] Marek Bonilla MD [address], [place] [address] documented as of this encounter Procedures Procedure Name Priority Date/Time Associated Diagnosis Comments BM HOLD CG/FISH Routine 06/05/2024 2:22 PM EST BM HOLD FLOW/MOLECULAR Routine 2:22 PM EST BONE MARROW ANALYSIS Routine 06/05/2024 2:22 PM EST CHROMOSOME ANALYSIS, ACQUIRED ([facility]) Routine 06/05/2024 2:22 PM EST [facility] HEMESEQ (BONE MARROW) Routine 2:22 PM EST IMMUNOPHENOTYPING FLOW CYTOMETRY Routine 06/05/2024 2:22 PM EST MYELODYSPLASTIC SYNDROME (MDS) FISH PANEL Routine 06/05/2024 2:22 PM EST BONE MARROW Routine 06/05/2024 2:22 PM EST Diagnostic Bone Marrow Biopsies & Aspirations (27[address]) 06/05/2024 2:03 PM EST Anemia, in pt with longstanding neutropenia CBC (WITH DIFF) Routine 06/05/2024 1:45 PM EST ([facility]) BONE MARROW BIOPSY AND ASPIRATION; DIAGNOSTIC Routine 06/05/2024 1:07 PM EST documented in this encounter Results * Myelodysplastic Syndrome (MDS) FISH Panel (06/05/2024 2:22 PM EST) Specimen Condition adequate 06/08/2024 11:23 PM [facility] Indication for Study Anemia, in patient with presumed hx of benign neutropenia 06/08/2024 11:23 PM EST [facility] FISH Panel Summary NEGATIVE for all FISH Panel markers 06/08/2024 11:23 PM [facility] FISH Results 5q deletion, monosomy 5, 7q deletion, monosomy 7, trisomy 8, and 20q deletion NOT DETECTED. 06/08/2024 11:23 PM [facility] ISCN Nomenclature nuc josselin(D5S23,EGR1)x2[ 200],(D7Z1,T9W220) x2[200],(D8Z2,D20S 108)x2[200] 06/08/2024 11:23 PM [facility] Culture Type Direct Paisley 06/08/20 11:23 PM [facility] FISH Method Interphase 06/08/2024 11:23 PM [facility] Interpretation Interphase FISH analysis using [...] analysis using probes for CEP7/D7Z1/7p11.1q1 1.1 and G9A019/7q31 loci ([employer] shows 1.5% and 0% of 200 cells with 7q signal deletion (7q-) and chromosome 7 signal loss (monosomy 7) patterns, respectively. These are within acceptable reference limits (7q deletion: 0-6.3%; monosomy 7: 0-4.4%). Thus, there is no evidence for 7q deletion and monosomy 7. Interphase FISH analysis using probes for CEP8/D8Z2/8p11.1q1 1.1 and J88P341/20q12 loci ([employer] shows 0% and 2.5% of 200 cells with a chromosome 8 signal gain and 20q signal deletion patterns, respectively. These are within acceptable reference limits (trisomy 8: 0-5.1%; 20q deletion: 0-6.3%). Thus, there is no evidence for trisomy 8 and 20q deletion. Correlation with clinical and pathological studies is suggested. 06/08/2024 11:23 PM [facility] Technical Methods FISH is performed [...] The FISH probes are directly-labeled by the houseman ([employer] or [employer]) with either a spectrum orange, green, or aqua fluorochrome. Cells are stained with DAPI ([employer]), visualized through fluorescence microscopy, and images captured on the CytoVision software ([employer]). Results are reported based on an International System for Human Cytogenomic Nomenclature. 06/08/2024 11:23 PM [facility] Limitations & Disclaimers The FISH test was developed and its performance characteristics were determined by the [facility] ([facility] [place] Cytogenetics Laboratory as required by The Clinical [...] verified the test's accuracy and precision. The [facility] [place] Cytogenetics Laboratory is certified under the CLIA'88 as qualified to perform high complexity clinical laboratory testing. Chromosome alterations outside the regions complementary to these DNA FISH probes will not be detected. 06/08/2024 11:23 PM EST [facility] Sign-out by Professional component performed by Lizette Bullock, Ph.D., [facility], [facility] , [place], [place] (CLIA #: [id number]). 06/08/2024 11:23 PM EST [facility] Bone Marrow Non Blood Collection / Unknown 06/05/2024 2:22 PM EST 06/05/2024 3:07 PM EST Georges Boucher MD MOLECULAR ORDERABLES Performing Organization Address City/[facility]/ZIP Co de Phone Number [facility] [place] [phone] * Chromosome Analysis, Acquired ([facility]) (06/05/2024 2:22 PM EST) Chromosome, Leukemia/Lymph ananya ([facility]) See Scanned Result 06/14/2024 6:28 PM EST [facility]F [facility] Specimen Condition ([facility]) 06/14/2024 6:28 PM EST [facility]F [facility] Bone Marrow Non Blood Collection / Unknown 06/05/2024 2:22 PM EST 06/05/2024 3:07 PM EST Georges Boucher MD LAB SEND OUT ORDERAB LES REF [facility] [address] [place] [address], [facility] * [facility] HemeSeq (Bone Marrow) (06/05/2024 2:22 PM EST) NGS Report Status Normal 06/13/2024 10:21 AM EST [facility] Bone Marrow Non Blood Collection / Unknown 06/05/2024 2:22 PM EST 06/05/2024 3:07 PM EST Georges Boucher MD MOLECULAR ORDERABLES [facility] [place] [address] * Immunophenotyping Flow Cytometry (06/05/2024 2:22 PM EST) Pathologist [facility] Final Diagnosis - No monotypic B-cell population, no monotypic plasma cell population, no phenotypically abnormal T-cell population or increase in blasts is detected. 06/06/2024 2:08 PM [facility] Signing Pathologist This result has been reviewed by Georges Boucher MD on 06/06/24 at 2:08 PM. 06/06/2024 2:08 PM [facility] Interpretation CD19+ B-cells show a [...] significant blast populations identified. 06/06/2024 2:08 PM [facility] Lymphocyte % 4.7 % 06/06/2024 2:08 PM [facility] Monocyte % 3.0 % 06/06/2024 2:08 PM [facility] Granulocyte % 76.0 % 06/06/2024 2:08 PM [facility] CD45 DIM % 0.9 % 06/06/2024 2:08 PM [facility] CD38 Bright/CD138+ 0.2 % 06/06/2024 2:08 PM [facility] CD3+ % 70.0 % 06/06/2024 2:08 PM [facility] CD19+ % 17.0 % 06/06/2024 2:08 PM [facility] CD56+ % 12.0 % 06/06/2024 2:08 PM [facility] B-Cell:T-Cell Ratio 0.2 06/06/2024 2:08 PM [facility] Cisne:Lambda Ratio 1.8 06/06/2024 2:08 PM [facility] CD4:CD8 Ratio 1.6 06/06/2024 2:08 PM [facility] Specimen Processing Cells for immunophenotypic analysis were derived from bone marrow. The following markers were assessed: CD2, CD3, CD4, CD5, CD7, CD8, CD10, CD19, CD20, CD38, CD45, CD56, CD138, kappa light chain, (c)kappa light chain, lambda light chain, (c)lambda light chain,CD13, CD14, CD34, CD45, CD117, and HLA-DR. 06/06/2024 2:08 PM [facility] Disclaimer Flow analysis is an ancillary study. A definite diagnosis requires correlation with the morphologic features of this process and if necessary, correlation with other ancillary studies like immunohistochemist ry, enzyme cytochemistry and/or cyto/molecular genetics. This test was developed and its performance characteristics determined by the Clinical Flow Cytometry Laboratory at [facility]. It has not been cleared [...] clinical laboratory testing. 06/06/2024 2:08 PM EST [facility] Bone Marrow Non Blood Collection / Unknown 06/05/2024 2:22 PM EST 06/05/2024 3:07 PM EST Georges Boucher MD HEMATOLOGY ORDERABLE S Performing Organization Address [facility] Co de Phone Number [facility] [place] [address] * BM HOLD CYTOGENETICS/FISH (06/05/2024 2:22 PM EST) Bone Marrow Non Blood Collection / Unknown 06/05/2024 2:22 PM EST 06/05/2024 3:07 PM EST Narrative [facility] - 06/06/2024 10:47 AM EST ~3ml Markel Borjas MD PATHOLOGY/CYTOLOGY ORDERABLES Performing Organization Address [facility] de Phone Number [facility] [place] [address] * BM HOLD FLOW/MOLECULAR (06/05/2024 2:22 PM EST) Bone Marrow Non Blood Collection / Unknown 06/05/2024 2:22 PM EST 06/05/2024 3:07 PM EST Markel Borjas MD PATHOLOGY/CYTOLOGY ORDERABLES Performing Organization Address [facility] de Phone Number [facility] [place] [address] * Bone Marrow (06/05/2024 2:22 PM EST) Case Report Bone Marrow Patholog y Report ?Case: [id number] ? Authorizing Provider: ??Borjas, Markel R, MD ?Collected: ? 06/05/2024 1422 ? [facility]ing [facility] ? [facility] ??Received: ?06/05/2024 1508 ? [facility] ? Pathologist: ? Boucher, Georges L, MD ? Specimens: ?? A) - Iliac Crest, Left ? B) - Iliac Crest, Left ? C) - Iliac Crest, Left ? 4 1:36 PM [facility] Final Diagnosis BONE MARROW (BLOOD FILM, ASPIRATE, TOUCH PREP, CORE & CLOT SECTIONS): 1. Normocellular bone marrow with maturing trilineage hematopoiesis. No overt dysplasia or increased blasts. 2. Ancillary studies pending. 4 1:36 PM [facility] Discussion The patient's histor y [...] integrated report to follow. 4 1:36 PM [facility] Additional Studies Task ID IHC/Special Stains Result B1-3 Myeloperoxidase Highlights granulocytic precursors. B1-4 CD34 Highlights rare blasts (<5% of cells) B1-5 CD117 Highlights rare mast cells. B1-6 E-Cadherin Highlights normal erythroid precursors. B1-7 CD61 Highlights normal megakaryocytes. 4 1:36 PM [facility] Clinical Information Anemia, in patient with presumed hx of benign neutropenia 4 1:36 PM [facility] Gross Description A. Iliac Crest, Left. Number of Lavender (EDTA) tubes: 3 Total Volume of Lavender (EDTA) tubes: 8 ml Number of Green (NaHep) tubes: 1 Total Volume of Green (NaHep) tubes: 3 ml Spicule/Clot Section submitted? Present Tube to Biorepository? Present Processed by: Abbie Barrow Collected off the [facility] by: N/A B. Iliac Crest, Left. [...] cassette labeled C1. CCP 4 1:36 PM [facility] Disclaimer(s) Formalin-fixed, paraffin-embedded tissue sections [...] and other diagnostic tests. 4 1:36 PM [facility] Bone Marrow Aspirate Adequacy: Smear/touch [...] present, no ring sideroblasts. 4 1:36 PM [facility] Bone Marrow Biopsy and/or Clot [...] bone normal for age. 1:36 PM EST [facility] Bone Marrow Differential Band/Seg 34%; Lymph 8%; Hernando 0%; Eos 2%; Baso 1%; Metamyelocyte 13%; Myelocyte 9%; Promyelocyte 2%; Blast 1%; nRBC's 27%; Plasma cell 3% 1:36 PM EST [facility] Result Note Routine 1:36 PM [facility] Peripheral Blood Morphology RBCs: Mildly macrocytic anemia with rare target cells, ovalocytes. WBCs: Unremarkable. Platelets: Rare large platelet form present. 1:36 PM [facility] STRUCTURE OF LEFT ILIAC CREST / Unknown 06/05/2024 2:22 PM EST 06/05/2024 3:08 PM EST STRUCTURE OF LEFT ILIAC CREST / Unknown 06/05/2024 2:22 PM EST 06/05/2024 3:08 PM EST STRUCTURE OF LEFT ILIAC CREST / Unknown 06/05/2024 2:22 PM EST 06/05/2024 3:08 PM EST Markel Borjas MD PATHOLOGY/CYTOLOGY ORDERABLES [facility] [place] [address] * (ABNORMAL) CBC (with Diff) (06/05/2024 1:45 PM EST) White Blood Cell 3.06(L) 4.00 - 9.50 x10(3)/mc L 06/05/2024 2:38 PM EST [facility] Red Blood Cell 3.35(L) 4.00 - 5.21 x10(6)/mc L 06/05/2024 2:38 PM EST [facility] Hemoglobin 11.0(L) 11.7 - 15.5 g/dL 06/05/2024 2:38 PM EST [facility] Hematocrit 33.4(L) 35.7 - 45.8 % 06/05/2024 2:38 PM [facility] Mean Cell Volume 99.7(H) 82.6 - 94.4 fL 06/05/2024 2:38 PM [facility] Mean Cell Hemoglobin 32.8(H) 27.1 - 32.0 pg 06/05/2024 2:38 PM [facility] Mean Cell Hemoglobin Concentration 32.9 31.7 - 35.0 g/dL 06/05/2024 2:38 PM [facility] Platelet 151 145 - 357 x10(3)/mc L 06/05/2024 2:38 PM [facility] Mean Platelet Volume 8.9 7.6 - 12.9 fL 06/05/2024 2:38 PM [facility] RDW Standard Deviation 44.3 37.0 - 46.0 fL 06/05/2024 2:38 PM [facility] RDW coefficient of variation 12.0 11.5 - 14.1 % 06/05/2024 2:38 PM [facility] NRBC% auto 0.0 % 06/05/2024 2:38 PM [facility] NRBC Absolute <0.01 <0.01 x10(3)/mc L 06/05/2024 2:38 PM [facility] Neutrophil % 62.8 % 06/05/2024 2:38 PM [facility] Neutrophil Absolute (ANC) - Automated 1.92 1.70 - 6.10 x10(3)/mc L 06/05/2024 2:38 PM [facility] Lymph % 20.9 % 06/05/2024 2:38 PM [facility] Lymph Absolute 0.64(L) 0.90 - 3.20 x10(3)/mc L 06/05/2024 2:38 PM [facility] Monocyte % 15.0 % 06/05/2024 2:38 PM [facility] Monocyte Absolute 0.46 0.30 - 0.90 x10(3)/mc L 06/05/2024 2:38 PM EST [facility] Eos % 0.3 % 06/05/2024 2:38 PM EST [facility] Eos Absolute <0.04 0.00 - 0.40 x10(3)/mc L 06/05/2024 2:38 PM EST [facility] Basophil % 0.7 % 06/05/2024 2:38 PM EST [facility] Baso Absolute <0.04 0.00 - 0.10 x10(3)/mc L 06/05/2024 2:38 PM EST [facility] Immature Gran % 0.3 % 2:38 PM [facility] Immature Gran Absolute <0.04 0.00 - 0.04 x10(3)/mc L 06/05/2024 2:38 PM EST [facility] Blood VENOUS BLOOD SPECIMEN / Unknown Venipuncture / Unknown 06/05/2024 1:45 PM EST 06/05/2024 1:59 PM EST Markel Borjas MD HEMATOLOGY ORDERAB LES Performing Organization Address [facility]/[place]/[facility] Co de Phone Number [facility] [place] [address] documented in this encounter Visit Diagnoses Not [...] RN) documented in this encounter Care Teams Partition Assembler Relationship Specialty Start Date End Date Magdalena Acosta MD [address] [place] [address] PCP - General Family Medicine 02/05/23 documented as of this encounter
--- OUTSIDE RECORDS SUMMARY | 2024-06-15 14:08 | XMS_ITS | Encounter Summary ---
Author Organization [facility] Address [address] [place] [address] Care Team Providers Care Emissions Testing And Repair Technician Name Role Phone Scott, Ashley WILLIAM Primary Care Provider [phone] Encounter Details Date Type Department Care Team (Late st Contact Info) Description 05/12/2019 Results Only [facility] [phone] Nadira Gregorio MD [address] [place] [phone] Social History Tobacco Use Types Packs/Day [...] ? PURNIMA THACKER ? Accession #: ? [id number] ? : ? 1955 (Age: 63) ??F ? Collect Date: ? 05/12/2019 ? Location: ? [facility] ? Receive Date: ? 05/12/2019 ? Provider: NADIRA GREGORIO MD Copy to: [facility] ? Final Pathologic Diagnosis: COLON, CECUM, POLYP, [...] 05/12/2019 6:[address] [facility] 05/12/2019 16:0 3 EDT 05/12/2019 16:03 EDT us Nadira Gregorio MD PATHOLOGY ORDERABLES Final Resul t [facility] [address] [place] [address] documented in this encounter Visit Diagnoses Not on filedocumented in this encounter Care Teams Emissions Testing And Repair Technician Relationship Specialty Start Date End Date Ashley Chavez ARNP [address] [place] [address] PCP - General 12/10/10 documented as of this encounter
--- OUTSIDE RECORDS SUMMARY | 2024-06-15 14:08 | XMS_ITS | Clinical Summary ---
Author Organization [facility] Address [facility] [place] [address] Care Team Providers Care Practice Representative Name Role Phone Magdalena Acosta MD Primary Care Provider [phone] Allergies No known active allergies Medications Medication [...] 05/08/2023 Mild coronary artery disease by [facility] 11/09/2022 Heart failure with reduced [...] 2:00 PM EST - 06/05/2024 3:00 PM [facility] Surgery [place] [address] Markel Borjas MD [facility] BONE MARROW BIOPSY AND ASPIRATION; DIAGNOSTIC (WRVU 1.44) 06/05/2024 1:04 PM EST - 06/05/2024 3:08 PM EST Hospital Encounter [place] [phone] Markel Borjas MD Discharge Disposition: Home 06/01/2024 10:00 AM EDT Office Visit Rheumatology at [place] [phone] Magdalena Peralta MD Mixed connective tissue disease 05/31/2024 Travel 05/24/2024 [place] [phone] Magdalena Peralta MD 05/18/2024 Interpretation Only [address] [address] Magdalena Acosta MD 05/18/2024 Interpretation Only [address] [address] Magdalena Acosta MD 05/12/2024 10:00 AM EDT Office Visit Hematology [place] [phone] Markel Borjas MD Chronic idiopathic neutropenia 05/12/2024 9:00 AM EDT Laboratory Appointment Lab at [facility] Hematology Oncology [address] [place] [phone] S/P TAVR (transcatheter aortic valve replacement); Chronic idiopathic neutropenia 05/12/2024 Travel 05/10/2024 Travel 04/11/2024 Transcribe Orders eDH Incoming Referrals [phone] Consuelo Guerrero DO Anemia, unspecified type from [...] pur e alcohol) none [facility] Inpatient Questions Answer Date Recorded Does Anyone [...] Visit Hemat[place] [phone] Markel Borjas MD [facility] [address] [place] [address] 11/02/2024 12:00 PM EDT [place]oint[place] [address] 11/02/2024 1:00 PM EDT Office [place] [phone] Magdalena Peralta MD [facility] [place] [address] 03/01/2025 4:15 PM EDT Office Visit Dermatology at [place] [address] [facility] [place] [phone] Marek Bonilla MD [address], [place] [address] Health Maintenance Due Date Last Done Comments [...] 05/18/2024, 06/05/2021 Medical Devices Implanted Type Area Office Analyst Device Identifier Shelf Expiration Date Model / Serial / Lot Valve,Aor,Pericar d,Magna,25mm ([id number]) - [id number] Implanted:Qty: 1 on 09/21/2016 by Alirio Esparza MD at [facility] IMPLANTS N/A: Heart DO NOT USE [employer] - [id number] 06/02/2020 [id number] / / [id number] Cable,Blnt,Ss,38i n ([id number]) - [id number] Implanted:Qty: 4 on 09/21/2016 by Alirio Esparza MD at [facility] IMPLANTS N/A: Chest [employer] - [id number] 04/29/2021 [id number] / / [id number] Patch,Cav,Pericar d,2x5cm ([id number]) (Autoreq) - [id number] Implanted:Qty: 1 on 09/21/2016 by Alirio Esparza MD at [facility] IMPLANTS N/A: Heart DO NOT USE [employer] - [id number] 04/21/2018 [id number] / / [id number] Tavr-05/12/2023 Implanted:Qty: 1 on 05/12/2023 by Antelmo Sharma MD Other Heart [employer] [place] - [place] [id number] / [id number] / Description:[employer] NCES ABBY 3 ULTRA RESILIA TRANSCATHETER HEART VALVE Procedures Procedure Name Priority Date/Time Associated Diagnosis Comments BM HOLD CG/FISH Routine 06/05/2024 2:22 PM EST BM HOLD FLOW/MOLECULAR Routine 2:22 PM EST BONE MARROW ANALYSIS Routine 06/05/2024 2:22 PM EST BONE MARROW Routine 06/05/2024 2:22 PM EST MYELODYSPLASTIC SYNDROME (MDS) FISH PANEL Routine 06/05/2024 2:22 PM EST CHROMOSOME ANALYSIS, ACQUIRED ([facility]) Routine 06/05/2024 2:22 PM EST DH HEMESEQ (BONE MARROW) Routine 2:22 PM EST IMMUNOPHENOTYPING FLOW CYTOMETRY Routine 06/05/2024 2:22 PM EST Diagnostic Bone Marrow Biopsies & Aspirations (29271) 06/05/2024 2:03 PM EST Anemia, in pt [...] PM EST 06/05/2024 3:07 PM EST Narrative [facility] - 06/06/2024 10:47 AM EST ~3ml Markel Borjas MD PATHOLOGY/CYTOLOGY ORDERABLES Performing Organization Address [facility] de Phone Number [facility] [place] [address] * BM HOLD FLOW/MOLECULAR (06/05/2024 2:22 PM EST) Bone Marrow Non Blood Collection / Unknown 06/05/2024 2:22 PM EST 06/05/2024 3:07 PM EST Markel Borjas MD PATHOLOGY/CYTOLOGY ORDERABLES Performing Organization Address [facility] Co de Phone Number [facility] [place] [address] * Bone Marrow (06/05/2024 2:22 PM EST) Case Report Bone Marrow Patholog y Report ?Case: [id number] ? Authorizing Provider: ??Markel Borjas MD ?Collected: ? 06/05/2024 1422 ? Ordering Location: ? [facility] ??Received: ?06/05/2024 1508 ? [facility] ? Pathologist: ? Boucher, Goerges L, MD ? Specimens: ?? A) - Iliac Crest, Left ? B) - Iliac Crest, Left ? C) - Iliac Crest, Left ? 4 1:36 PM [facility] Final Diagnosis BONE MARROW (BLOOD FILM, ASPIRATE, TOUCH PREP, CORE & CLOT SECTIONS): 1. Normocellular bone marrow with maturing trilineage hematopoiesis. No overt dysplasia or increased blasts. 2. Ancillary studies pending. 4 1:36 PM [facility] Discussion The patient's histor y [...] integrated report to follow. 4 1:36 PM [facility] Additional Studies Task ID IHC/Special Stains Result B1-3 Myeloperoxidase Highlights granulocytic precursors. B1-4 CD34 Highlights rare blasts (<5% of cells) B1-5 CD117 Highlights rare mast cells. B1-6 E-Cadherin Highlights normal erythroid precursors. B1-7 CD61 Highlights normal megakaryocytes. 4 1:36 PM [facility] Clinical Information Anemia, in patient with presumed hx of benign neutropenia 4 1:36 PM [facility] Gross Description A. Iliac Crest, [...] cassette labeled C1. CCP 4 1:36 PM [facility] Disclaimer(s) Formalin-fixed, paraffin-embedded tissue sections [...] and other diagnostic tests. 4 1:36 PM [facility] Bone Marrow Aspirate Adequacy: Smear/touch [...] present, no ring sideroblasts. 4 1:36 PM [facility] Bone Marrow Biopsy and/or Clot [...] cells. Bone: Trabecular bone normal for age. 4 1:36 PM EST [facility] Bone Marrow Differential Band/Seg 34%; Lymph 8%; [place] 0%; Eos 2%; Baso 1%; Metamyelocyte 13%; Myelocyte 9%; Promyelocyte 2%; Blast 1%; nRBC's 27%; Plasma cell 3% 4 1:36 PM EST [facility] Result Note Routine 4 1:36 PM [facility] Peripheral Blood Morphology RBCs: Mildly macrocytic anemia with rare target cells, ovalocytes. WBCs: Unremarkable. Platelets: Rare large platelet form present. 1:36 PM EST [facility] STRUCTURE OF LEFT ILIAC CREST / Unknown 06/05/2024 2:22 PM EST 06/05/2024 3:08 PM EST STRUCTURE OF LEFT ILIAC CREST / Unknown 06/05/2024 2:22 PM EST 06/05/2024 3:08 PM EST STRUCTURE OF LEFT ILIAC CREST / Unknown 06/05/2024 2:22 PM EST 06/05/2024 3:08 PM EST Markel Borjas MD PATHOLOGY/CYTOLOGY ORDERABLES Performing Organization Address City/[facility] Co de Phone Number [facility] [place] [address] * Chromosome Analysis, Acquired ([facility]) (06/05/2024 2:22 PM EST) Chromosome, Leukemia/Lymph ananya ([facility]) See Scanned Result 06/14/2024 6:28 PM EST REF [facility] Specimen Condition ([facility]) 06/14/2024 6:28 PM EST REF [facility] Bone Marrow Non Blood Collection / Unknown 06/05/2024 2:22 PM EST 06/05/2024 3:07 PM EST Georges Boucher MD LAB SEND OUT ORDERAB LES REF [facility] [address] [place] [address], [facility] * DH HemeSeq (Bone Marrow) (06/05/2024 2:22 PM EST) NGS Report Status Normal 06/13/2024 10:21 AM EST [facility] Bone Marrow Non Blood Collection / Unknown 06/05/2024 2:22 PM EST 06/05/2024 3:07 PM EST Georges Boucher MD MOLECULAR ORDERABLES [facility] [place] [address] * Immunophenotyping Flow Cytometry (06/05/2024 2:22 PM EST) Final Diagnosis - No monotypic B-cell population, no monotypic plasma cell population, no phenotypically abnormal T-cell population or increase in blasts is detected. 06/06/2024 2:08 PM [facility] Signing Pathologist This result has been reviewed by Georges Boucher MD on 06/06/24 at 2:08 PM. 06/06/2024 2:08 PM [facility] Interpretation CD19+ B-cells show a [...] blast populations identified. 06/06/2024 2:08 PM EST [facility] Lymphocyte % 4.7 % 06/06/2024 2:08 PM [facility] Monocyte % 3.0 % 06/06/2024 2:08 PM [facility] Granulocyte % 76.0 % 06/06/2024 2:08 PM [facility] CD45 DIM % 0.9 % 06/06/2024 2:08 PM [facility] CD38 Bright/CD138+ 0.2 % 06/06/2024 2:08 PM [facility] CD3+ % 70.0 % 06/06/2024 2:08 PM [facility] CD19+ % 17.0 % 06/06/2024 2:08 PM [facility] CD56+ % 12.0 % 06/06/2024 2:08 PM [facility] B-Cell:T-Cell Ratio 0.2 06/06/2024 2:08 PM [facility] [place]:Lambda Ratio 1.8 06/06/2024 2:08 PM [facility] CD4:CD8 Ratio 1.6 06/06/2024 2:08 PM [facility] Specimen Processing Cells for immunophenotypic analysis were derived from bone marrow. The following markers were assessed: CD2, CD3, CD4, CD5, CD7, CD8, CD10, CD19, CD20, CD38, CD45, CD56, CD138, kappa light chain, (c)kappa light chain, lambda light chain, (c)lambda light chain,CD13, CD14, CD34, CD45, CD117, and HLA-DR. 06/06/2024 2:08 PM [facility] Disclaimer Flow analysis is an [...] complexity clinical laboratory testing. 06/06/2024 2:08 PM [facility] Bone Marrow Non Blood Collection / Unknown 06/05/2024 2:22 PM EST 06/05/2024 3:07 PM EST Georges Boucher MD HEMATOLOGY ORDERABLE S [facility] [address] * Myelodysplastic Syndrome (MDS) FISH Panel (06/05/2024 2:22 PM EST) Specimen Condition adequate 06/08/2024 11:23 PM [facility] Indication for Study Anemia, in patient with presumed hx of benign neutropenia 06/08/2024 11:23 PM [facility] FISH Panel Summary NEGATIVE for all FISH Panel markers 06/08/2024 11:23 PM [facility] FISH Results 5q deletion, monosomy 5, 7q deletion, monosomy 7, trisomy 8, and 20q deletion NOT DETECTED. 06/08/2024 11:23 PM [facility] ISCN Nomenclature nuc josselin(D5S23,EGR1)x2[ 200],(D7Z1,V5U560) x2[200],(D8Z2,D20S 108)x2[200] 06/08/2024 11:23 PM [facility] Culture Type Direct Crocker 06/08/20 11:23 PM [facility] FISH Method Interphase 06/08/2024 11:23 PM [facility] Interpretation Interphase FISH analysis using [...] analysis using probes for CEP7/D7Z1/7p11.1q1 1.1 and Y2U740/7q31 loci ([employer] shows 1.5% and 0% of 200 cells with 7q signal deletion (7q-) and chromosome 7 signal loss (monosomy 7) patterns, respectively. These are within acceptable reference limits (7q deletion: 0-6.3%; monosomy 7: 0-4.4%). Thus, there is no evidence for 7q deletion and monosomy 7. Interphase FISH analysis using probes for CEP8/D8Z2/8p11.1q1 1.1 and K34S368/20q12 loci ([employer] shows 0% and 2.5% of 200 cells with a chromosome 8 signal gain and 20q signal deletion patterns, respectively. These are within acceptable reference limits (trisomy 8: 0-5.1%; 20q deletion: 0-6.3%). Thus, there is no evidence for trisomy 8 and 20q deletion. Correlation with clinical and pathological studies is suggested. 06/08/2024 11:23 PM [facility] Technical Methods FISH is performed [...] The FISH probes are directly-labeled by the sow farm manager ([employer] or [employer]) with either a spectrum orange, green, or aqua fluorochrome. Cells are stained with DAPI ([employer]), visualized through fluorescence microscopy, and images captured on the CytoVision software ([employer]). Results are reported based on an International System for Human Cytogenomic Nomenclature. 06/08/2024 11:23 PM [facility] Limitations & Disclaimers The FISH test was developed and its performance characteristics were determined by the [facility] ([facility]) Cytogenetics Laboratory as required by The Clinical [...] verified the test's accuracy and precision. The [facility] Cytogenetics Laboratory is certified under the CLIA'88 as qualified to perform high complexity clinical laboratory testing. Chromosome alterations outside the regions complementary to these DNA FISH probes will not be detected. 06/08/2024 11:23 PM EST [facility] Sign-out by Professional component performed by Lizette Bullock, Ph.D., [facility], [facility] [address], [place], [place] (CLIA #: [id number]). 06/08/2024 11:23 PM [facility] Bone Marrow Non Blood Collection / Unknown 06/05/2024 2:22 PM EST 06/05/2024 3:07 PM EST Georges Boucher MD MOLECULAR ORDERABLES [facility] [place] [address] * (ABNORMAL) CBC (with Diff) (06/05/2024 1:45 PM EST) Only the most recent of2 resultswithin the time period is included. White Blood Cell 3.06(L) 4.00 - 9.50 x10(3)/mc L 06/05/2024 2:38 PM EST [facility] Red Blood Cell 3.35(L) 4.00 - 5.21 x10(6)/mc L 06/05/2024 2:38 PM EST [facility] Hemoglobin 11.0(L) 11.7 - 15.5 g/dL 06/05/2024 2:38 PM EST [facility] Hematocrit 33.4(L) 35.7 - 45.8 [...] 0.90 x10(3)/mc L 06/05/2024 2:38 PM EST [facility] Eos % 0.3 % 06/05/2024 2:38 PM EST [facility] Eos Absolute <0.04 0.00 - 0.40 x10(3)/mc L 06/05/2024 2:38 PM EST [facility] Basophil % 0.7 % 06/05/2024 2:38 PM EST [facility] Baso Absolute <0.04 0.00 - 0.10 x10(3)/mc L 06/05/2024 2:38 PM EST [facility] Immature Gran % 0.3 % 2:38 PM [facility] Immature Gran Absolute <0.04 0.00 - 0.04 x10(3)/mc L 06/05/2024 2:38 PM [facility] Blood VENOUS BLOOD SPECIMEN / Unknown Venipuncture / Unknown 06/05/2024 1:45 PM EST 06/05/2024 1:59 PM EST Markel Borjas MD HEMATOLOGY ORDERAB LES [facility] [place] [id number] * DXA Central Spine, Hip, and/or Whole Body (Generic) (05/18/2024 11:21 AM EDT) PT CLASS O RAD ADMITDTTM [id number] [facility] PT RAD INFO [id number]^Dave ^Magdalena RAD EXAM DESC XDXAC^BD Bone Density DEXA Axial Skeleton^RIS [facility] WORKSTATION ID RADDRIMAGE [facility] Anatomical Region Laterality Modality C-spine, Hip N/A [...] who have questions please contact the health overnight caregiver that requested your imaging first. ? Electronically signed by: Rocael Villatoro MD, [facility] ([phone]), at 05/18/2024 11:25 AM Narrative 05/18/2024 11:25 [...] patients who have questions please contactthe health overnight caregiver that requested your imaging first. Electronically signed by: Rocael Villatoro MD, [facility]([phone]), at 05/18/2024 11:25 AM Magdalena Acosta MD IMG DEXA ORDERABLES * MAMMO SCREENING CAD BILATERAL (CH) (05/18/2024 11:21 AM EDT) PT CLASS O RAD ADMITDTTM [id number] RAD PT RAD INFO [id number]^Dave ^Magdalena RAD EXAM DESC MADDSCCH^MG Mammo Digital [...] who have questions please contact the health overnight caregiver that requested your imaging first. ? Electronically signed by: Rocael Villatoro MD, [facility] ([phone]), at 05/18/2024 3:[address] ??[id number] Narrative 05/18/2024 3:05 PM EDT EXAMINATION: MG [...] patients who have questions please contactthe health overnight caregiver that requested your imaging first. Electronically signed by: Rocael Villatoro MD, [facility]([phone]), at 05/18/2024 3:[address] [address] Magdalena Acosta MD PACS IMAGES * Reticulocyte Count (05/12/2024 8:56 AM EDT) Pathologist [facility] Reticulocyte % 1.20 0.70 - 2.50 % [...] EDT 05/12/2024 8:56 AM EDT Tova Russell BALLISTICS TEACHER HEMATOLOGY ORDERABL ES [facility] [place] [address] * (ABNORMAL) Comprehensive metabolic panel Non-fasting (05/12/2024 8:56 AM EDT) Glucose 86 65 - 199 mg/dL 05/12/2024 11:36 AM EDT [facility] Comment:Glucose Concentratio n >=200 mg/dL plus symptoms is consistent with Diabetes Mellitus. Blood Urea Nitrogen 20(H) 8 - 18 mg/dL 05/12/2024 11:36 AM EDT [facility] Creatinine 0.88 0.70 - 1.20 mg/dL 05/12/2024 11:36 AM EDT [facility] Sodium 145 135 - 145 mMol/L 05/12/2024 11:36 AM [facility] Potassium 4.6 3.5 - 5.0 mMol/L 05/12/2024 11:36 AM [facility] Chloride 109(H) 98 - 107 mMol/L 05/12/2024 11:36 AM [facility] Carbon Dioxide 21(L) 22 - 31 mMol/L 05/12/2024 11:36 AM [facility] Anion Gap 15 5 - 15 mMol/L 05/12/2024 11:36 AM [facility] Comment:Not Calculated. Calcium 9.9 8.5 - 10.5 mg/dL 05/12/2024 11:36 AM [facility] Protein, Total 7.3 6.1 - 8.0 g/dL 05/12/2024 11:36 AM [facility] Albumin 4.5 3.2 - 5.2 g/dL 05/12/2024 11:36 AM [facility] Aspartate Aminotransferase 24 <=30 unit/L 05/12/2024 11:36 AM [facility] Alanine Aminotransferase 14 0 - 30 unit/L 05/12/2024 11:36 AM [facility] Alkaline Phosphatase 98 35 - 105 unit/L 05/12/2024 11:36 AM [facility] Bilirubin, Total 0.2 <=1.3 mg/dL 05/12/2024 11:36 AM [facility] Est Glomerular Filtration Rate - Female 72 mL/min/1. 73 m?? 05/12/2024 11:36 AM [facility] Comment: This patient's estimated GFR [...] EDT 05/12/2024 8:56 AM EDT Tova Russell BALLISTICS TEACHER CHEMISTRY ORDERABLE S [facility] [address] [place] [address] from Last 3 Months Advance Directives * [...] to make decision: Yes Care Teams Practice Representative Relationship Specialty Start Date End Date Magdalena Acosta MD [address] [place] [address] PCP - General Family Medicine 02/05/23
--- OUTSIDE RECORDS SUMMARY | 2024-06-15 14:08 | XMS_ITS | Encounter Summary ---
Author Organization [facility] Address [address] [place] [address] Care Team Providers Care Lighting Engineer Name Role Phone Scott, Ashley WILLIAM Primary Care Provider [phone] Encounter Details Date Type Department Care Team (Late st Contact Info) Description 03/21/2024 Lab Requisition [facility] Pathology & Laboratory Medicine - [address] [address] Consuelo Guerrero, DO [address] [place], [place] [phone] Encounter for other general examination Social History [...] LORY Negative 03/21/2024 22:31 EDT [facility] Blood VENOUS BLOOD / Unknown 03/21/2024 13:00 EDT 03/21/2024 21:51 EDT us Consuelo Guerrero DO BLOOD BANK TESTS Final Result Performing Organization Address City/State/[facility] Co de Phone Number [facility] [address] [place] [address] documented in this encounter Visit Diagnoses Diagnosis Encounter for other general examination documented in this encounter Care Teams Lighting Engineer Relationship Specialty Start Date End Date Ashley Chavez ARNP [address] [place] [address] PCP - General 07/11/10 documented as of this encounter
--- OUTSIDE RECORDS SUMMARY | 2024-06-15 14:08 | XMS_ITS | Encounter Summary ---
Author Organization [facility] [place] [address] Care Team Providers Care Director Of Enrollment Name Role Phone Magdalena Acosta MD Primary Care Provider [phone] Encounter Details Date Type Department Care Team (Late st Contact Info) Description 06/05/2024 2:00 PM EST - 06/05/2024 3:00 PM EST Surgery [place] [address] Markel Borjas MD [facility] [address] HEMATOLOGY [place] [address] ([facility] MSURG) BONE MARROW BIOPSY AND ASPIRATION; [...] 5pm or on a weekend: Call the [facility] transfer station operator at and ask for the physician digital content producer covering for your doctor. Instructions following sedation [...] drainage occurs, [place] [address] [email or web address] documented in this encounter Medications at Time [...] topically 2 times daily as needed. 10/22/2022 [employer] Verio test strips Strip USE DAILY 01/03/2022 [employer] Delica Plus Lancet 33 gauge Misc USE [...] EST Office Visit Hemat[place] [address] Markel Borjas MD [facility] DR HEMATOLOGY [place] [address] 11/02/2024 12:00 PM EDT Appoint[place] [address] 11/02/2024 1:00 PM EDT Office [place] [address] Magdalena Peralta MD [facility] [place] [address] 03/01/2025 4:15 PM EDT Office Visit Dermatology at [place] [address] [place] [address] Marek Bonilla MD [address] [facility], [place] [address] documented as of this encounter Procedures Procedure [...] EST Diagnostic Bone Marrow Biopsies & Aspirations ([address]) 06/05/2024 2:03 PM EST Anemia, in pt with longstanding neutropenia CBC (WITH DIFF) Routine 06/05/2024 1:45 PM EST ([facility] MSURG) BONE MARROW BIOPSY AND ASPIRATION; DIAGNOSTIC Routine 06/05/2024 1:07 PM EST documented in this encounter Results * Myelodysplastic Syndrome (MDS) FISH Panel (06/05/2024 2:22 PM EST) Specimen Condition adequate 06/08/2024 11:23 PM [facility] Indication for Study Anemia, in patient with presumed hx of benign neutropenia 06/08/2024 11:23 PM [facility] FISH Panel Summary NEGATIVE for all FISH Panel markers 06/08/2024 11:23 PM [facility] FISH Results 5q deletion, monosomy 5, 7q deletion, monosomy 7, trisomy 8, and 20q deletion NOT DETECTED. 06/08/2024 11:23 PM [facility] ISCN Nomenclature nuc josselin(D5S23,EGR1)x2[ 200],(D7Z1,E5Z325) x2[200],(D8Z2,D20S 108)x2[200] 06/08/2024 11:23 PM [facility] Culture Type Direct Hana 06/08/20 11:23 PM [facility] FISH Method Interphase 06/08/2024 11:23 PM [facility] Interpretation Interphase FISH analysis using probes [...] analysis using probes for CEP7/D7Z1/7p11.1q1 1.1 and O9V329/7q31 loci ([employer] shows 1.5% and 0% of 200 cells with 7q signal deletion (7q-) and chromosome 7 signal loss (monosomy 7) patterns, respectively. These are within acceptable reference limits (7q deletion: 0-6.3%; monosomy 7: 0-4.4%). Thus, there is no evidence for 7q deletion and monosomy 7. Interphase FISH analysis using probes for CEP8/D8Z2/8p11.1q1 1.1 and N03K849/20q12 loci ([employer] shows 0% and 2.5% of 200 cells with a chromosome 8 signal gain and 20q signal deletion patterns, respectively. These are within acceptable reference limits (trisomy 8: 0-5.1%; 20q deletion: 0-6.3%). Thus, there is no evidence for trisomy 8 and 20q deletion. Correlation with clinical and pathological studies is suggested. 06/08/2024 11:23 PM [facility] Technical Methods FISH is performed on [...] The FISH probes are directly-labeled by the cnc milling machine operator ([employer] or [employer]) with either a spectrum orange, green, or aqua fluorochrome. Cells are stained with DAPI ([employer]), visualized through fluorescence microscopy, and images captured on the CytoVision software ([employer]). Results are reported based on an International System for Human Cytogenomic Nomenclature. 06/08/2024 11:23 PM EST [facility] Limitations & Disclaimers The FISH test was developed and its performance characteristics were determined by the [facility] ([facility]) Cytogenetics Laboratory as required by The Clinical [...] verified the test's accuracy and precision. The [facility] Cytogenetics Laboratory is certified under the CLIA'88 as qualified to perform high complexity clinical laboratory testing. Chromosome alterations outside the regions complementary to these DNA FISH probes will not be detected. 06/08/2024 11:23 PM EST [facility] Sign-out by Professional component performed by Lizette Bullock, Ph.D., [facility], [facility] [address], [place], [place] (CLIA #: [id number]). 06/08/2024 11:23 PM EST [facility] Bone Marrow Non Blood Collection / Unknown 06/05/2024 2:22 PM EST 06/05/2024 3:07 PM EST Georges Boucher MD MOLECULAR ORDERABLES [facility] [place] [address] * Chromosome Analysis, Acquired ([facility]) (06/05/2024 2:22 PM EST) Chromosome, Leukemia/Lymph ananya ([facility]) See Scanned Result 06/14/2024 6:28 PM EST REF [facility] Specimen Condition ([facility]) 06/14/2024 6:28 PM EST [facility]F [facility] Bone Marrow Non Blood Collection / Unknown 06/05/2024 2:22 PM EST 06/05/2024 3:07 PM EST Georges Boucher MD LAB SEND OUT ORDERAB LES REF [facility] [address] [place] [address], [facility] * DH HemeSeq (Bone Marrow) (06/05/2024 2:22 PM EST) NGS Report Status Normal 06/13/2024 10:[address] [facility] Bone Marrow Non Blood Collection / Unknown 06/05/2024 2:22 PM EST 06/05/2024 3:07 PM EST Georges Boucher MD MOLECULAR ORDERABLES [facility] [place] [address] * Immunophenotyping Flow Cytometry (06/05/2024 2:22 PM EST) Pathologist [facility] Final Diagnosis - No monotypic B-cell population, no monotypic plasma cell population, no phenotypically abnormal T-cell population or increase in blasts is detected. 06/06/2024 2:08 PM [facility] Signing Pathologist This result has been reviewed by Georges Boucher MD on 06/06/24 at 2:08 PM. 06/06/2024 2:08 PM [facility] Interpretation CD19+ B-cells show a polytypic [...] 06/06/2024 2:08 PM [facility] [place]:Lambda Ratio 1.8 06/06/2024 2:08 PM [facility] [...] by the Clinical Flow Cytometry Laboratory at [facility]. It has not been [...] clinical laboratory testing. 06/06/2024 2:08 PM EST [facility] Bone Marrow Non Blood Collection / Unknown 06/05/2024 2:22 PM EST 06/05/2024 3:07 PM EST Georges Boucher MD HEMATOLOGY ORDERABLE S Performing Organization Address [facility]/ZIP Co de Phone Number [facility] [place] [address] * BM HOLD CYTOGENETICS/FISH (06/05/2024 2:22 PM EST) Bone Marrow Non Blood Collection / Unknown 06/05/2024 2:22 PM EST 06/05/2024 3:07 PM EST Narrative [facility] - 06/06/2024 10:47 AM EST ~3ml Markel Borjas MD PATHOLOGY/CYTOLOGY ORDERABLES Performing Organization Address [facility] Co de Phone Number [facility] [place] [address] * BM HOLD FLOW/MOLECULAR (06/05/2024 2:22 PM EST) Bone Marrow Non Blood Collection / Unknown 06/05/2024 2:22 PM EST 06/05/2024 3:07 PM EST Markel Borjas MD PATHOLOGY/CYTOLOGY ORDERABLES Performing Organization Address [facility] Co de Phone Number [facility] [place] [place] [address] * Bone Marrow (06/05/2024 2:22 PM EST) Case Report Bone Marrow Patholog y Report ?Case: [id number] ? Authorizing Provider: ??Indio, Markel R, MD ?Collected: ? 06/05/2024 1422 ? Ordering Location: ? [facility] ??Received: ?06/05/2024 1508 ? [facility] ? Pathologist: ? Georges Boucher, [...] Tube to Biorepository? Present Processed by: Abbie Magalie Barrow Collected off the [facility] by: N/A B. Iliac [...] in toto in 1 cassette labeled C1. [facility] 4 1:36 PM [facility] [...] bone normal for age. 1:36 PM EST [facility] Bone Marrow Differential Band/Seg 34%; Lymph 8%; [place] 0%; Eos 2%; Baso 1%; Metamyelocyte 13%; Myelocyte 9%; Promyelocyte 2%; Blast 1%; nRBC's 27%; Plasma cell 3% 1:36 PM EST [facility] Result Note Routine 1:36 PM [facility] Peripheral Blood Morphology RBCs: Mildly macrocytic anemia with rare target cells, ovalocytes. WBCs: Unremarkable. Platelets: Rare large platelet form present. 1:36 PM [facility] STRUCTURE OF LEFT ILIAC CREST / Unknown 06/05/2024 2:22 PM EST 06/05/2024 3:08 PM EST STRUCTURE OF LEFT ILIAC CREST / Unknown 06/05/2024 2:22 PM EST 06/05/2024 3:08 PM EST STRUCTURE OF LEFT ILIAC CREST / Unknown 06/05/2024 2:22 PM EST 06/05/2024 3:08 PM EST Markel Borjas MD PATHOLOGY/CYTOLOGY ORDERABLES [facility] [address] * (ABNORMAL) CBC (with Diff) (06/05/2024 1:45 PM EST) White Blood Cell 3.06(L) 4.00 - 9.50 x10(3)/mc L 06/05/2024 2:38 PM EST [facility] Red Blood Cell 3.35(L) 4.00 - 5.21 x10(6)/mc L 06/05/2024 2:38 PM EST [facility] Hemoglobin 11.0(L) 11.7 - [...] - 3.20 x10(3)/mc L 06/05/2024 2:38 PM [facility] Monocyte % 15.0 % 06/05/2024 2:38 PM EST [facility] Monocyte Absolute 0.46 0.30 - 0.90 x10(3)/mc L 06/05/2024 2:38 PM EST [facility] Eos % 0.3 % 06/05/2024 2:38 PM EST [facility] Eos Absolute <0.04 0.00 - 0.40 x10(3)/mc L 06/05/2024 2:38 PM EST [facility] Basophil % 0.7 % 06/05/2024 2:38 PM EST [facility] Baso Absolute <0.04 0.00 - 0.10 x10(3)/mc L 06/05/2024 2:38 PM EST [facility] Immature Gran % 0.3 % 2:38 PM EST [facility] Immature Gran Absolute <0.04 0.00 - 0.04 x10(3)/mc L 06/05/2024 2:38 PM EST [facility] Blood VENOUS BLOOD SPECIMEN / Unknown Venipuncture / Unknown 06/05/2024 1:45 PM EST 06/05/2024 1:59 PM EST Markel Borjas MD HEMATOLOGY ORDERAB LES Performing Organization Address City/State/[facility] Co de Phone Number [facility] [place] [address] documented in this encounter Visit Diagnoses Not [...] in this encounter Care Teams Director Of Enrollment Relationship Specialty Start Date End Date Magdalena Acosta MD [address] [place] [address] PCP - General Family Medicine 02/05/23 documented as of this encounter
--- OUTSIDE RECORDS SUMMARY | 2024-06-15 14:08 | XMS_ITS | Encounter Summary ---
Author Organization Health system Address [address] [place] [address] Care Team Providers Care Exercise Instructor Name Role Phone Scott, Ashley WILLIAM Primary Care Provider [phone] Encounter Details Date Type Department Care Team (Late st Contact Info) Description 06/23/2016 Results Only [facility] [phone] Matthew Acevedo, DO [address] [facility] [facility] [facility] [address] [address] Social History Tobacco Use Types [...] ? PURNIMA THACKER ? Accession #: ? [id number] : ? 1955 (Age: 60) ??F ?Collect Date: ? 06/23/2016 Location: ? [facility] ? Receive Date: ? 06/24/2016 Provider: ? MATTHEW ACEVEDO DO Copy to: ?WINTER HANKINS CAD DESIGN ENGINEER MARIO ALBERTO GATES MD ? INTERPRETATION: Normal [...] ??400 ?? KARYOTYPE: 46,XX[25] End of Report [facility] 06/23/2016 06/24/2016 Matthew Acevedo DO PATHOLOGY ORDERABLES Fi nal Result [facility] [address] [place] [address] * FLOW CYTOMETRY (06/23/2016 0:00 EST) Pathology Report: FLOW CYTOMETRY REPORT Reports generated via electronic interface contain original data; however they are lacking the format of the original report. Caution should be taken when reading/interpreting unformatted reports. Name: ? PURNIMA THACKER ? Accession #: ? [id number] : ? 1955 (Age: 60) ??F ?Collect Date: ? 06/23/2016 00:00 Location: ? [facility] ? Receive Date: ? 06/24/2016 08:00 Provider: ?MATTHEW KRISTINA DO Copy to: ?WINTER HANKINS CAD DESIGN ENGINEER MARIO ALBERTO RAMOS MD ? FINAL IMMUNOPHENOTYPIC INTERPRETATION: ? Bone marrow, flow cytometric analysis: -No immunophenotypic evidence of a clonal cell population. ??See comment. ? COMMENT: The results of flow cytometry show no immunophenotypic evidence of involvement by a clonal lymphoproliferative or myeloproliferative disorder. ??Correlation of these findings with morphologic and clinical data is essential. ??Please refer to pathology report number [id number] for morphologic details. ? Document reviewed and [...] the Department of Pathology and Laboratory Medicine, [place] ??It has not been cleared or [...] clinical laboratory testing. End of Report ?? [facility] 06/23/2016 06/24/2016 8:0 0 EST Mattehw Acevedo DO PATHOLOGY ORDERABLES Fi nal Result Performing Organization Address City/State/[facility] Co de Phone Number [facility] [address] [place] [address] * BONE MARROW/HEMPATH CONSULT (06/23/2016 0:00 EST) Pathology Report: BONE MARROW REPORT Reports generated via electronic interface contain original data; however they are lacking the format of the original report. Caution should be taken when reading/interpreting unformatted reports. Name: ? ANDREW PURNIMA Magalie ? Accession #: ? [id number] : ? 1955 (Age: 60) ??F ?Collect Date: ? 06/23/2016 Location: ? [facility] ? Receive Date: ? 06/24/2016 Provider: ? MATTHEW ACEVEDO DO Copy to: ?WINTER HANKINS CAD DESIGN ENGINEER MARIO ALBERTO RAMOS MD ? DIAGNOSIS: Peripheral [...] #1: Aggregate biopsy length: 8 mm with exterior work helper trabeculae of lamellar bone, cellular bone marrow, [...] SEE ABOVE DISCUSSION Lambda (polyclonal, Dako) ??(B1): Blossom (polyclonal, Dako) ??(B1): Biopsy (decalcified) #2: Aggregate biopsy length: 8 mm with exterior work helper trabeculae of lamellar bone, cellular bone marrow, [...] (M115, Leica) ??(B2): Lambda (polyclonal, Dako) ??(B2): Blossom (polyclonal, Dako) ??(B2): NOTE: ??One or more [...] ? 1% Blasts ?1% Special Studies Cytogenetics ([id number]): Pending. Flow Cytometry ([id number]): No immunophenotypic evidence of a clonal cell population. ? End of Report [facility] 06/23/2016 06/24/2016 us Matthew Acevedo DO PATHOLOGY ORDERABLES Fi nal Result [facility] [address] [place] [address] documented in this encounter Visit Diagnoses Not on filedocumented in this encounter Care Teams Exercise Instructor Relationship Specialty Start Date End Date Ashley Chavez ARNP [address] [place] [address] PCP - General 07/11/10 documented as of this encounter
--- OUTSIDE RECORDS SUMMARY | 2024-06-15 14:08 | XMS_ITS | Encounter Summary ---
Author Organization [facility] Address [address] [place] [address] Care Team Providers Care Creel Cleaner Name Role Phone Unavailable Primary Care Provider Unavailabl e Encounter Details Date Type Department Care Team (Late st Contact Info) Description 07/08/2010 Results Only [facility] Non-Invasive Cardiology - [facility] [address] [place] [address] Ashley Chavez, WILLIAM [address] [place] [address] Social History Tobacco Use Types Packs/Day Years [...] ? PURNIMA THACKER ? Accession #: ? [id number] ? : ? 1955 (Age: 54) ??F [...] ORDERABLES Final Res ult PAUL ARELLANO [address] [place] [address] documented in this encounter Visit Diagnoses Not on filedocumented in this encounter
--- OUTSIDE RECORDS SUMMARY | 2024-06-15 14:08 | XMS_ITS | Encounter Summary ---
Author Organization [facility] Address [facility] [place] [address] Care Team Providers Care Chief Medical Technologist Name Role Phone Magdalena Acosta MD Primary Care Provider [phone] Encounter Details Date Type Department Care Team (Late st Contact Info) Description 06/01/2024 10:00 AM EDT [place] [address] Magdalena Peralta MD [facility] [place] [address] Mixed connective tissue disease Social History Tobacco Use Types Packs/Day Years Used Date Smoking Tobacco: Never Smokeless Tobacco: Never Alcohol Use Standard Drinks/Week Comments No 0 (1 standard drink = 0.6 oz pur e alcohol) none [facility] Inpatient Questions Answer Date Recorded [...] through Care Everywhere. * Knee Arthritis: Exercises (Yoruba) documented in this encounter Progress Notes * [...] speckled; VIC negative; Myositis panel with SUPERVISOR BODY ASSEMBLY ab 149.1 (positive); Anti U1RNP IgG 119; [...] that osteoporosis is not an indication for petroleum terminal plant operator systemic steroid therapy as it is not [...] Dr. Roma Peralta MD Rheumatology Fellow Pager: [phone] * Kuldeep Brandon MD - 06/01/2024 10:00 [...] and therapeutic plans. Kuldeep Brandon MD Staff Groundman documented in this encounter Plan of Treatment Upcoming Encounters Date Type Department Care Team (Late st Contact Info) Description 06/23/2024 2:00 PM EST Office Visit [place]ology [place] [address] Markel Borjas MD [facility] [address] [place] [address] 11/02/2024 12:00 PM EDT [place]oint[place] [address] 11/02/2024 1:00 PM EDT [place] [address] Magdalena Peralta MD [facility] [place] [address] 03/01/2025 4:15 PM EDT Office Visit Dermatology at [place] [address] [place] [address] Marek Bonilla MD [address] [place] [address] Scheduled Orders Name Type Priority Associated Diagnoses Orde r Schedule Common Pulmonary Function Test PFT Routine Mixed connective tissue disease Expected: 10/31/2024, Expires: 06/01/2025 documented as of this encounter Visit Diagnoses Diagnosis Mixed connective tissue disease Other specified diffuse disease of connective tissue documented in this encounter Care Teams Chief Medical Technologist Relationship Specialty Start Date End Date Magdalena Acosta MD [address] [place] [address] PCP - General Family Medicine 02/05/23 documented as of this encounter
--- OUTSIDE RECORDS SUMMARY | 2024-06-15 14:08 | XMS_ITS | Encounter Summary ---
Author Organization [facility] Address [address] [place] [address] Care Team Providers Care Hydraulic Dredge Operator Name Role Phone Scott Ashley WILLIAM Primary Care Provider [phone] Encounter Details Date Type Department Care Team (Late st Contact Info) Description 03/22/2024 Lab Requisition [facility] Pathology & Laboratory Medicine - [address] [address] Consuelo Guerrero, DO [address] [place], [place] [address] Diaphragmatic hernia without obstruction or gangrene; Anemia, [...] options, if applicable. 03/24/2024 10:36 [facility] Final Diagnosis A. JEJUNUM, [...] sections x3 examined. 03/24/2024 10:36 [facility] Attestation There was significant resident/fellow involvement in the diagnostic evaluation of this case. By the signature below, the attending physician certifies that they have personally conducted a gross and/or microscopic examination of the described specimens and rendered or confirmed the above diagnosis. 03/24/2024 10:36 [facility] at [address] Clinical History Anemia, hiatal hernia, 38 cm aguayo diverticulosis 03/24/2024 10:36 [facility] Gross Description A. Received [...] Luis Torres 03/22/2024 9:36 03/24/2024 10:36 EDT [facility] Resident/Estuardo w: Luis Felipe Bragg DO 03/24/2024 10:36 T [facility] Performing Lab [facility] 10:36 T [facility] Scanned Images 03/24/2024 10:36 T [facility] Tissue POLYP OF COLON [...] Guerrero DO PATHOLOGY ORDERABLES Final Re sult [facility] [address] [place] [address] documented in this encounter Visit Diagnoses Diagnosis Diaphragmatic hernia without obstruction or gangrene Diaphragmatic hernia without mention of obstruction or gangrene Anemia, unspecified documented in this encounter Care Teams Hydraulic Dredge Operator Relationship Specialty Start Date End Date Ashley Chavez ARNP [address] [place] [address] PCP - General 07/11/10 documented as of this encounter
--- OUTSIDE RECORDS SUMMARY | 2024-06-15 14:08 | XMS_ITS | Encounter Summary ---
Author Organization [facility] Address [facility] [place] [address] Care Team Providers Care Editor News Name Role Phone Magdalena Acosta MD Primary Care Provider [phone] Encounter Details Date Type Department Care Team [...] EST Office Visit Hematology [place] [address] Markel Borjas MD [facility] [address] [place] [address] 11/02/2024 12:00 PM EDT Appointment [place] [address] 11/02/2024 1:00 PM EDT Office [place] [address] Magdalena Peralta MD [facility] [place] [address] 03/01/2025 4:15 PM EDT Office Visit Dermatology at [place] [address] [facility] [place] [address] Marek Bonilla MD [address] [place] [address] documented as of this encounter Visit Diagnoses Not on filedocumented in this encounter Care Teams Editor News Relationship Specialty Start Date End Date Magdalena Acosta MD [address] [place] [address] PCP - General Family Medicine 02/05/23 documented as of this encounter
--- OUTSIDE RECORDS SUMMARY | 2024-06-15 14:08 | XMS_ITS | Encounter Summary ---
Author Organization [facility] Address [address] [place] [address] Care Team Providers Care Psychiatrist Name Role Phone Ashley Chavez Primary Care Provider [phone] Encounter Details Date Type Department Care Team (Late st Contact Info) Description 10/30/2022 Lab Requisition [facility] Pathology & Laboratory Medicine - [address] [address] Outr Resulting Lab, Provider Social History Tobacco [...] Stranded) <12.3 <30.0 IU/mL 11/03/2022 13:08 EDT [facility] Comment: ? Negative: ??<30.0 IU/mL ? Borderline Positive: ??30.0 - 75.0 IU/mL ? Positive: ??>75.0 IU/mL Results were obtained with the [email or web address] QUANTA Lite dsDNA SC DOMO assay on the [employer] DSX. Blood VENOUS BLOOD / Unknown 10/29/2022 14:00 EDT 10/30/2022 19:27 EDT Provider Outr Resulting Lab IMMUNOLOGY AND SEROL OGY ORDERABLES Final Result Performing Organization Address [facility] de Phone Number [facility] [address] [place] [address] * SM (MORENO) ANTIBODY (10/29/2022 14:00 EDT) SM (Moreno) Antibody 18.5 <20.0 Units 11/03/2022 14:26 EDT [facility] Comment: ? Negative: <20.0 [...] Organization Address [facility] de Phone Number [facility] [address] [place] [address] documented in this encounter Visit Diagnoses Not on filedocumented in this encounter Care Teams Psychiatrist Relationship Specialty Start Date End Date Ashley Chavez ARNP [address] [place] [address] PCP - General 07/11/10 documented as of this encounter
--- OUTSIDE RECORDS SUMMARY | 2024-06-15 14:08 | XMS_ITS | Encounter Summary ---
Author Organization [facility] Address [address] [place] [address] Care Team Providers Care Wood Model Builder Name Role Phone Scott, Ashley WILLIAM Primary Care Provider [phone] Encounter Details Date Type Department Care Team (Late st Contact Info) Description 12/23/2016 Results Only [facility] [phone] Deborah Quiroga, ADJUNCT TRAINER [address] [place] [phone] Social History Tobacco Use Types Packs/Day [...] ? PURNIMA THACKER ? Accession #: ? [id number] ? : ? 1955 (Age: 61) ??F ?Collect Date: ? 12/23/2016 ? Location: ? [facility] ? Receive Date: ? 12/25/2016 ? Provider: DEBORAH QUIROGA DIRECTOR DRUG SAFETY Copy to: ? Final Report SPECIMEN ADEQUACY ? Satisfactory for Evaluation - transformation zone component present GENERAL CATEGORIZATION ? Negative for Intraepithelial Lesion or Malignancy ?? Last Menstrual Period: years Specimen/Source: ??Pap Test, Cervix, ThinPrep Imaging System with manual evaluation Document reviewed and electronically signed by: ? Monica Cason, [facility](ASCP) ? Report ??Date: 01/06/2017 09:11 HPV with Pap Test ? Date Ordered: ? 01/06/2017 ? Status: ?? Signed Out ?Date Complete: ? 01/07/2017 ? By: ??System Interface ? Date Reported: ? 01/07/2017 ? Interpretation RESULT: Negative for HPV. No E6 or E7 mRNA is detected from HPV types 16,18,31,33,35, 39,45,51,52,56,58, 59,66, and 68 by manager r d mediated amplification. Comments Document reviewed and electronically signed by: ? System Interface ? Report date: 01/07/2017 By the signature above, the attending physician certifies that he/she has personally conducted a gross and/or microscopic examination of the described specimens and rendered or confirmed the above diagnosis. End of Report [facility] 12/23/2016 12/25/2016 us Deborah Quiroga ADJUNCT TRAINER PATHOLOGY ORDERABLES Final Re sult [facility] [address] [place] [address] documented in this encounter Visit Diagnoses Not on filedocumented in this encounter Care Teams Wood Model Builder Relationship Specialty Start Date End Date Ashley Chavez ARNP [address] [place] [address] PCP - General 07/11/10 documented as of this encounter
--- OUTSIDE RECORDS SUMMARY | 2024-06-15 14:08 | XMS_ITS | Encounter Summary ---
Author Organization [facility] Address [address] [place] [address] Care Team Providers Care Graphic Specialist Name Role Phone Unavailable Primary Care Provider Unavailabl e Encounter Details Date Type Department Care Team (Late st Contact Info) Description 07/08/2010 10:55 EST - 07/08/2010 10:56 EST Hospital Encounter [facility] - Other [address] [place] [address] Ashley Chavez, WILLIAM [address] [place] [address] Discharge Disposition: Home or Self Care Social [...]
--- OUTSIDE RECORDS SUMMARY | 2024-06-15 14:08 | XMS_ITS | Encounter Summary ---
Author Organization [facility] Address [address] [place] [address] Care Team Providers Care Senior Courtroom Clerk Name Role Phone Unavailable Primary Care Provider Unavailabl e Encounter Details Date Type Department Care Team (Late st Contact Info) Description 04/20/2005 Results Only [facility] [address] [place] [address] Ziggy Valiente MD [address] [place] [address] Social History Tobacco Use Types Packs/Day [...] ? PURNIMA THACKER ? Accession #: ? [id number] ? : ? 1955 (Age: 49) ??F [...] is entirely submitted in one cassette. ??(Arabella Santos)/[facility] End of Report [facility] 04/20/2005 04/21/2005 15: 04 EDT us Ziggy Valiente MD PATHOLOGY ORDERABLES Final Resul t [facility] [address] [place] [address] documented in this encounter Visit Diagnoses Not on filedocumented in this encounter
[2024-06-15 14:09] VITALS: BP 107/59; PULSE 75
--- OUTSIDE RECORDS SUMMARY | 2024-06-15 14:09 | XMS_ITS | Encounter Summary ---
Author Organization [facility] Address [facility] [place] [address] Care Team Providers Care Deputy Sheriff Custody Name Role Phone Magdalena Acosta MD Primary Care Provider [phone] Encounter Details Date Type Department Care Team [...] EST Office Visit H[place]ology [place] [address] Markel Borjas MD [facility] [address] HEMATOLOGY [place] [address] 11/02/2024 12:00 PM EDT App[place] [phone] 11/02/2024 1:00 PM EDT Office [place] [address] Magdalena Peralta MD [facility] [place] [address] 03/01/2025 4:15 PM EDT Office Visit Dermatology at [place] [address] [facility] [address] [place] [phone] Marek Bonilla MD [address] [place] [address] documented as of this encounter Visit Diagnoses Not on filedocumented in this encounter Care Teams Deputy Sheriff Custody Relationship Specialty Start Date End Date Magdalena Acosta MD [address] [place] [address] PCP - General Family Medicine 02/05/23 documented as of this encounter
--- OUTSIDE RECORDS SUMMARY | 2024-06-15 14:09 | XMS_ITS | Encounter Summary ---
[place] [address] Care Team Providers Care Placement Officer Name Role Phone Magdalena Acosta MD Primary Care Provider [phone] Reason for Visit * Reason Onset Date Comments Pre Procedure Call 03/01/2024 DAPT hold for EGD and colo? Encounter Details Date Type Department Care Team (Late st Contact Info) Description 03/01/2024 Telephone Cardiology at [address] [phone] Cynthia Monsalve RN Pre Procedure Call (DAPT [...] safe. Jay Message above left with Yenifer (fight manager), who would be leaving this note in patient's chart for providers to schedule patient. No further questions or needs at this time. This nurse stated, note will be placed regarding this call in our chart for patient. Kezia Whitney RN, BSN Ambulatory Cardiology Clinic, [facility] [phone] * Telephone Encounter - Cynthia Monsalve RN - 03/01/2024 2:09 PM EDT Nurse Veronica from [facility] called, requesting a hold on ASA and/or Plavix for the patient's anticipated EGD and colonoscopy. -Cynthia Monsalve RN documented in this encounter Plan of Treatment Upcoming Encounters Date Type Department Care Team (Late st Contact Info) Description 06/23/2024 2:00 PM EST Office Visit Hematology [place] [phone] Markel Borjas MD [facility] DR [place] [address] 11/02/2024 12:00 PM EDT Appointment [place] [phone] 11/02/2024 1:00 PM EDT Office [place] [phone] Magdalena Peralta MD [facility] [place] [address] 03/01/2025 4:15 PM EDT Office Visit Dermatology at [address] [place] [address] Marek Bonilla MD [address] [place] [address] documented as of this encounter Visit Diagnoses Not on filedocumented in this encounter Care Teams Placement Officer Relationship Specialty Start Date End Date Magdalena Acosta MD [address] [place] [address] PCP - General Family Medicine 02/05/23 documented as of this encounter
--- OUTSIDE RECORDS SUMMARY | 2024-06-15 14:09 | XMS_ITS | Encounter Summary ---
Author Organization [facility] Address [facility] E[facility] [place] [place] [address] Care Team Providers Care Carton Forming Machine Tender Name Role Phone Magdalena Acosta MD Primary Care Provider [phone] Encounter Details Date Type Department Care Team (Latest Contact Info) Description 07/08/2023 12:35 PM EST Laboratory Appointment Lab [address] [place] [address] S/P TAVR (transcatheter aortic valve [...] Visit [place]ematology [place] [address] Markel Borjas MD [facility] [address] [place] [address] 11/02/2024 12:00 PM EDT [place]oint[place] [address] 11/02/2024 1:00 PM EDT Office [place] [address] Magdalena Peralta MD [facility] [place] [address] 03/01/2025 4:15 PM EDT Office Visit Dermatology at [place] [address] [place] [address] Marek Bonilla MD [address] [place] [address] documented as of this encounter Procedures Procedure [...] 11:56 AM EST) Neutrophil % 73.2 % [facility] Neutrophil Absolute 3.40 1.70 - 6.10 x10(3)/mc L [facility] Lymph % 16.1 % [facility] HOSPI F[facility]E LABORAT[facility] Lymphocytes Abs 0.8(L) 0.9 - 3.2 x10(3)/mc L [facility] Monocyte % 9.7 % [facility] HOSP ITAL LABORATORY Monocyte Abs 0.4 0.3 - 0.9 x10(3)/mc L [facility] Eos % 0.4 % [facility] Eosinophils Abs 0.0 0.0 - 0.4 x10(3)/mc L [facility] Basophil % 0.4 % [facility] ITAL [facility] Baso Absolute 0.0 [...] Absolute 0.01 0.00 - 0.04 x10(3)/ L [facility] Blood 07/08/2023 11:5 6 AM EST 07/08/2023 12:02 PM EST Narrative Resulting Agency Comment Spec In Lab Minh TOBAR HEMATOLOGY ORDERABLE S Performing Organization Address City/State/[facility] Co de Phone Number [facility] [address] * (ABNORMAL) Hemogram (07/08/2023 11:56 AM EST) White Blood Cell 4.6 4.0 - 9.5 x10(3)/ L [facility] Red Blood Cell 3.34(L) 4.00 - 5.21 x10(6)/mc L [facility] Hemoglobin 11.0(L) 11.7 - 15.5 g/dL [facility] Hematocrit 33.2(L) 35.7 - 45.8 % [facility] Mean Cell Volume 99.4(H) 82.6 - 94.4 fL [facility] Mean Cell Hemoglobin 32.9(H) 27.1 - 32.0 pg [facility] Mean Cell Hemoglobin Concentration 33.1 31.7 - 35.0 g/dL [facility] Platelet 166 145 - 357 x10(3)/mc L [facility] RDW Standard Deviation 47.1(H) 37.0 - 46.0 fL [facility] RDW coefficient of variation 13.0 11.5 - 14.1 % [facility] Mean Platelet Volume 9.0 7.6 - 12.9 fL [facility] NRBC% auto 0.0 % [facility] HOSP ITAL LABORATORY NRBC Absolute 0.000 0.000 - 0.000 x10(3)/mc L [facility] Blood 07/08/2023 11:5 6 AM EST 07/08/2023 12:02 PM EST Narrative Resulting Agency Comment Spec In Lab Minh TOBAR HEMATOLOGY ORDERABLE S [facility] [address] * (ABNORMAL) Comprehensive metabolic panel (non-fasting) (07/08/2023 11:56 AM EST) Glucose 93 65 - 199 mg/dL [facility] Comment:Diabetes: >=200 mg/d L plus symptoms Blood Urea Nitrogen 19(H) 8 - 18 mg/dL [facility] Creatinine 0.81 0.70 - 1.20 mg/dL [facility] Sodium 142 135 - 145 [...] LABORATORY Calcium 10.2 8.5 - 10.5 mg/dL [facility] Protein, Total 7.4 6.1 - 8.0 g/dL [facility] Albumin 4.1 3.2 - 5.2 g/dL [facility] Aspartate Aminotransferase 24 0 - 30 unit/L [facility] Alanine Aminotransferase 12 0 - 30 unit/L [facility] Alkaline Phosphatase 93 35 - [...] [place] Co de Phone Number [facility] [address] documented in this encounter Visit Diagnoses Diagnosis S/P TAVR (transcatheter aortic valve replacement) Severe aortic stenosis Aortic valve disorders documented in this encounter Care Teams Carton Forming Machine Tender Relationship Specialty Start Date End Date Magdalena Acosta MD [address] [place] [address] PCP - General Family Medicine 02/05/23 documented as of this encounter
--- OUTSIDE RECORDS SUMMARY | 2024-06-15 14:09 | XMS_ITS | Encounter Summary ---
Author Organization [facility] Address [facility] [place] [address] Care Team Providers Care Circular Saw Edge Fuser Name Role Phone Magdalena Acosta MD Primary Care Provider [phone] Encounter Details Date Type Department Care Team (Latest Contact Info) Description 05/12/2024 9:00 AM EDT Laboratory Appointment Lab at [facility] Hematology Oncology [address] [place] [phone] S/P TAVR (transcatheter aortic valve replacement); Chronic [...] Visit Hematology [place] [phone] [facility] [address] HEMATOLOGY [place] [address] 11/02/2024 12:00 PM EDT Appointment [place] [address] 11/02/2024 1:00 PM EDT Office [place] [address] [facility] [place] [address] 03/01/2025 4:15 PM EDT Office Visit Dermatology at [place] [address] [place] [address] Marek Bonilla MD [address] [place] [address] documented as of this encounter Procedures Procedure [...] - 2.50 % 05/12/2024 9:32 AM EDT [facility] Retic Abs # 0.0397 0.0200 - 0.1100 x10(6)/mcL 05/12/2024 9:32 AM EDT [facility] Immature Retic% 8.1 0.5 - 13.8 % 05/12/2024 9:32 AM EDT [facility] Reticulated Hgb 35.2 29.8 - 39.4 pg 05/12/2024 9:32 AM EDT [facility] Blood VENOUS BLOOD SPECIMEN / Unknown Venipuncture / Unknown 05/12/2024 8:56 AM EDT 05/12/2024 8:56 AM EDT Tova Russell CHEMIST PROTEINS HEMATOLOGY ORDERABL ES [facility] [place] [address] * (ABNORMAL) Comprehensive metabolic panel Non-fasting (05/12/2024 8:56 AM EDT) Glucose 86 65 - 199 mg/dL 05/12/2024 11:36 AM EDT [facility] Comment:Glucose Concentratio n >=200 mg/dL plus symptoms is consistent with Diabetes Mellitus. Blood Urea Nitrogen 20(H) 8 - 18 mg/dL [facility] Creatinine 0.88 0.70 - 1.20 mg/dL 05/12/2024 11:36 AM T [facility] Sodium 145 135 - 145 mMol/L 05/12/2024 11:[address] [facility] Potassium 4.6 3.5 - 5.0 mMol/L 05/12/2024 11:[address] [facility] Chloride 109(H) 98 - 107 mMol/L 05/12/2024 11:[address] [facility] Carbon Dioxide 21(L) 22 - 31 mMol/L 05/12/2024 11:36 AM T [facility] Anion Gap 15 5 - 15 mMol/L 05/12/2024 11:[address] [facility] Comment:Not Calculated. Calcium 9.9 8.5 - 10.5 mg/dL 05/12/2024 11:36 AM EDT [facility] Protein, Total 7.3 6.1 - 8.0 g/dL 05/12/2024 11:36 AM EDT [facility] Albumin 4.5 3.2 - 5.2 g/dL 05/12/2024 11:36 AM EDT [facility] Aspartate Aminotransferase 24 <=30 unit/L 05/12/2024 11:[address] [facility] Alanine Aminotransferase 14 0 - 30 unit/L 05/12/2024 11:[address] [facility] Alkaline Phosphatase 98 35 - 105 unit/L 05/12/2024 11:[address] [facility] Bilirubin, Total 0.2 <=1.3 mg/dL 05/12/2024 11:36 AM T [facility] Est Glomerular Filtration Rate - Female 72 mL/min/1. 73 m?? 05/12/2024 11:[address] [facility] Comment: This patient's estimated [...] Fasting Status No 05/12/2024 11:36 AM T [facility] Blood VENOUS BLOOD SPECIMEN / Unknown Venipuncture / Unknown 05/12/2024 8:56 AM EDT 05/12/2024 8:56 AM EDT oTva Russell CHEMIST PROTEINS CHEMISTRY ORDERABLE S [facility] [place] [address] * (ABNORMAL) CBC (with Diff) (05/12/2024 8:56 AM EDT) White Blood Cell 3.47(L) 4.00 - 9.50 x10(3)/mc L 05/12/2024 9:32 AM EDT [facility] Red Blood Cell 3.31(L) 4.00 - 5.21 x10(6)/mc L 05/12/2024 9:[address] [facility] Hemoglobin 11.1(L) 11.7 - 15.5 g/dL 05/12/2024 9:[address] [facility] Hematocrit 33.2(L) 35.7 - 45.8 % 05/12/2024 9:[address] [facility] Mean Cell Volume 100.3(H) 82.6 - 94.4 fL 05/12/2024 9:[address] [facility] Mean Cell Hemoglobin 33.5(H) 27.1 - 32.0 pg 05/12/2024 9:[address] [facility] Mean Cell Hemoglobin Concentration 33.4 31.7 - 35.0 g/dL 05/12/2024 9:[address] [facility] Platelet 142(L) 145 - 357 x10(3)/mc L 05/12/2024 9:[address] [facility] Mean Platelet Volume 8.7 7.6 - 12.9 fL 05/12/2024 9:[address] [facility] RDW Standard Deviation 44.4 37.0 - 46.0 fL 05/12/2024 9:[address] [facility] RDW coefficient of variation 12.0 11.5 - 14.1 % 05/12/2024 9:[address] [facility] NRBC% auto 0.0 % 05/12/2024 9:[address] [facility] NRBC Absolute <0.01 <0.01 x10(3)/mc L 05/12/2024 9:[address] [facility] Neutrophil % 69.7 % 05/12/2024 9:[address] [facility] Neutrophil Absolute (ANC) - Automated 2.42 1.70 - 6.10 x10(3)/mc L 05/12/2024 9:32 AM EDT [facility] Lymph % 16.7 % 05/12/2024 9:32 AM EDT [facility] Lymph Absolute 0.58(L) 0.90 - 3.20 x10(3)/mc L 05/12/2024 9:32 AM EDT [facility] Monocyte % 12.1 % 05/12/2024 9:32 AM EDT [facility] Monocyte Absolute 0.42 0.30 - 0.90 x10(3)/mc L 05/12/2024 9:32 AM EDT [facility] Eos % 0.6 % 05/12/2024 9:32 AM EDT [facility] Eos Absolute <0.04 0.00 - 0.40 x10(3)/mc L 05/12/2024 9:32 AM EDT [facility] Basophil % 0.6 % 05/12/2024 9:32 AM EDT [facility] Baso Absolute <0.04 0.00 - 0.10 x10(3)/mc L 05/12/2024 9:32 AM EDT [facility] Immature Gran % 0.3 % 9:32 AM EDT [facility] Immature Gran Absolute <0.04 0.00 - 0.04 x10(3)/mc L 05/12/2024 9:32 AM EDT [facility] Blood VENOUS BLOOD SPECIMEN / Unknown Venipuncture / Unknown 05/12/2024 8:56 AM EDT 05/12/2024 8:56 AM EDT Tova Russell CHEMIST PROTEINS HEMATOLOGY ORDERABL ES [facility] [place] [address] documented in this encounter Visit Diagnoses Diagnosis S/P TAVR (transcatheter aortic valve replacement) Chronic idiopathic neutropenia Other neutropenia documented in this encounter Care Teams Circular Saw Edge Fuser Relationship Specialty Start Date End Date Magdalena Acosta MD [address] [place] [address] PCP - General Family Medicine 02/05/23 documented as of this encounter
--- OUTSIDE RECORDS SUMMARY | 2024-06-15 14:09 | XMS_ITS | Encounter Summary ---
Author Organization [facility] Address [facility] [place] [address] Care Team Providers Care Tutoring Clinician Name Role Phone Magdalena Acosta MD Primary Care Provider [phone] Encounter Details Date Type Department Care Team [...] EST Office Visit Hematology [place] [address] Markel Borjas MD [facility] [address] [place] [address] 11/02/2024 12:00 PM EDT [place]oint[place] [phone] 11/02/2024 1:00 PM EDT Office [place] [address] Magdalena Peralta MD [facility] [place] [address] 03/01/2025 4:15 PM EDT Office Visit Dermatology at [place] [address] [place] [phone] Marek Bonilla MD [address] [place] [address] documented as of this encounter Visit Diagnoses Not on filedocumented in this encounter Care Teams Tutoring Clinician Relationship Specialty Start Date End Date Magdalena Acosta MD [address] [place] [address] PCP - General Family Medicine 02/05/23 documented as of this encounter
--- OUTSIDE RECORDS SUMMARY | 2024-06-15 14:09 | XMS_ITS | Encounter Summary ---
Author Organization [facility] [place] [address] Care Team Providers Care Distance Education Faculty Liaison Name Role Phone Magdalena Acosta MD Primary Care Provider [phone] Encounter Details Date Type Department Care Team (Late st Contact Info) Description 05/27/2023 Refill Cardiology at [address] [phone] Vero Marrero, RN Social History Tobacco Use [...] May 27, 2023 Jay Maza PA to Ms 05/27/23 2:44 PM OK to change ticagrelor to Clopidogrel. Now, she should be taking ticagrelor 90mg BID. When she switches, she can take ticagrelor, then the next morning, stop ticagrelor, instead take clopidogrel 300mg once, then after that 75mg once daily. Jay Marrero soil science teacher Clinic at [facility] [address] * Telephone Encounter - Vero Marrero RN [...] more affordable option, if possible. Vero Marrero soil science teacher Clinic at [facility] [address] documented in this encounter Plan of Treatment Upcoming Encounters Date Type Department Care Team (Late st Contact Info) Description 06/23/2024 2:00 PM EST Office Visit Hematology and Oncology at [place] [phone] Markel Borjas MD [facility] [place] [address] 11/02/2024 12:00 PM EDT Appointment Pulmonology at [place] [phone] 11/02/2024 1:00 PM EDT Office Visit Rheumatology at [place] [phone] Magdalena Peralta MD [facility] [place] [address] 03/01/2025 4:15 PM EDT Office Visit Dermatology at [place] [address] [place] [address] Marek Bonilla MD [address] [place] [address] documented as of this encounter Visit Diagnoses Diagnosis Aortic valve stenosis, etiology of cardiac valve disease unspecified documented in this encounter Care Teams Distance Education Faculty Liaison Relationship Specialty Start Date End Date Magdalena Acosta MD [address] [place] [address] PCP - General Family Medicine 02/05/23 documented as of this encounter
--- OUTSIDE RECORDS SUMMARY | 2024-06-15 14:09 | XMS_ITS | Encounter Summary ---
Author Organization Formerly [facility], 1928–[address] [place] [address] Care Team Providers Care Fashion Show Director Name Role Phone Magdalena Acosta MD Primary Care Provider [phone] Encounter Details Date Type Department Care Team (Late st Contact Info) Description 12/02/2023 11:15 AM EDT Office [place] [address] Magdalena Peralta MD [facility] [place] [address] Mixed connective tissue disease Social History Tobacco [...] 1:5120 speckled; VIC negative; Myositis panel with CRITICAL CARE SPECIALIST ab 149.1 (positive); Anti U1RNP IgG [...] of questions that she sent via [facility] ahead of her visit, which we [...] exposure. She has an appointment with her Plugger scheduled in January. (Dr Bonilla in [place]) ROS (positives in bold): Gen: no fevers, [...] but I encouraged her to contact her Plugger to see if she could have her [...] Dr. Tanisha Peralta MD Rheumatology Fellow Pager: [phone] * Federico Yee MD - 12/02/2023 11:15 [...] EST Office Visit Hematology and Oncology at [place] [phone] Markel Borjas MD [facility] [address] [place] [address] 11/02/2024 12:00 PM EDT Appointment Pulmonology at [place] [address] 11/02/2024 1:00 PM EDT Office Visit Rheumatology at [place] [address] Magdalena Peralta MD [facility] [place] [address] 03/01/2025 4:15 PM EDT Office Visit Dermatology at [place] [address] [facility] [place] [address] Marek Bonilla MD [address] [facility], [place] [address] Scheduled Orders Name Type Priority Associated Diagnoses Orde r Schedule EKG 12 Lead ECG Routine Mixed connective tissue disease Expected: 12/02/2023, Expires: 06/03/2024 documented as of this encounter Visit Diagnoses Diagnosis Mixed connective tissue disease Other specified diffuse disease of connective tissue documented in this encounter Care Teams Fashion Show Director Relationship Specialty Start Date End Date Magdalena Acosta MD [address] [place] [address] PCP - General Family Medicine 02/05/23 documented as of this encounter
--- OUTSIDE RECORDS SUMMARY | 2024-06-15 14:09 | XMS_ITS | Encounter Summary ---
[place] [address] Care Team Providers Care Spanish Speaking Babysitter Name Role Phone Magdalena Acosta MD Primary Care Provider [phone] Encounter Details Date Type Department Care Team (Latest Contact Info) Description 10/05/2023 10:52 AM EST - 10/05/2023 11:59 PM [facility] Hospital Encounter [place] [address] Mixed connective tissue disease Discharge Disposition: Home [...] topically 2 times daily as needed. 10/22/2022 SmashFlyTouch Verio test strips Strip USE DAILY 01/03/2022 SmashFlyTouch Delica Plus Lancet 33 gauge Misc USE [...] EST Office Visit Hematology [place] [address] [facility] [address] [place] [address] 11/02/2024 12:00 PM EDT Appointment [place] [address] 11/02/2024 1:00 PM EDT Office [place] [address] [facility] [place] [address] 03/01/2025 4:15 PM EDT Office Visit Dermatology at [place] [address] [facility] [place] [address] Marek Bonilla MD [address], [place] [address] documented as of this encounter Procedures Procedure [...] PFT FEV1/FVC Pre-BD Z-Score 0 COMPAS PFT TIN01-79 Actual Pre-BD 2.41 % COMPAS PFT IMX70-06 Predicted 1.8 % COMPAS PFT LIK51-78 Pre-BD % of Predicted 134 % COMPAS PFT PYT70-65 Pre-BD Z-Score 0.81 COMPAS PFT DLCO Hb [...] tissue documented in this encounter Care Teams Spanish Speaking Babysitter Relationship Specialty Start Date End Date Magdalena Acosta MD [address] [place] [address] PCP - General Family Medicine 02/05/23 documented as of this encounter
--- OUTSIDE RECORDS SUMMARY | 2024-06-15 14:09 | XMS_ITS | Encounter Summary ---
Author Organization [place] [address] Care Team Providers Care Card Placer Name Role Phone Magdalena Acosta MD Primary Care Provider [phone] Encounter Details Date Type Department Care Team (Late st Contact Info) Description 07/08/2023 10:15 AM EST Office Visit Cardiology at [address] [phone] Severe aortic stenosis Social History Tobacco Use [...] EST Office Visit Hematology [place] [address] Markel Borjas MD [facility] DR [place] [address] 11/02/2024 12:00 PM EDT Appointment [place] [address] 11/02/2024 1:00 PM EDT Office [place] [address] Magdalena Peralta MD [facility] DR RHEUMATOLOGY DEPT [place], [place] [phone] 03/01/2025 4:15 PM EDT Office Visit Dermatology at [place] [address] [facility] [place] [address] Marek Bonilla MD [address] [facility], [place] [address] documented as of this encounter Procedures Procedure [...] (Bezet) 449 ms MUSE SYSTEM Calculated P Bowers 66 degrees MUSE SYSTEM Calculated R Bowers 60 degrees MUSE SYSTEM Calculated T Bowers 53 degrees MUSE SYSTEM INTERPRETATION Normal sinus rhythm Minimal voltage criteria for LVH, may be normal variant ( Sokolow-Orozco ) ST & T wave abnormality, consider lateral ischemia ??vs. repolarization abnormality from LVH Abnormal ECG When compared with ECG of 13-MAY-2023 09:22, Premature ventricular complexes are no longer Present Minimal criteria for Septal infarct are no longer Present Confirmed by Maxx Best ([id number]) on 07/09/2023 10:07:22 AM MUSE SYSTEM 07/08/2023 10:2 7 AM EST 07/09/2023 10:07 AM EST Brody Kaplan APRN ECG ORDERABLES MUSE SYSTEM documented in this encounter Visit Diagnoses Diagnosis Severe aortic stenosis Aortic valve disorders documented in this encounter Care Teams Card Placer Relationship Specialty Start Date End Date Magdalena Acosta MD [address] [place] [address] PCP - General Family Medicine 02/05/23 documented as of this encounter
--- OUTSIDE RECORDS SUMMARY | 2024-06-15 14:09 | XMS_ITS | Encounter Summary ---
Author Organization Formerly [facility] [place] [address] Care Team Providers Care Chief Sustainability Officer Name Role Phone Magdalena Acosta MD Primary Care Provider [phone] Reason for Referral * Diagnostic Test (Routine) - New Request Specialty Diagnoses / Procedures Referred By Contac t Referred To Contact Cardiology Diagnoses S/P TAVR (transcatheter aortic valve replacement) Procedures Echocardiogram Transthoracic Antelmo Sharma MD [facility] [place] [address] [facility] [place] [address] Referral ID Status Reason Start Date Expiration Date Visits Requested Visits Authorized [id number] New Request Specialty Service Requested 12/16/2023 12/15/2024 1 1 Encounter Details Date Type Department Care Team (Late st Contact Info) Description 12/16/2023 Orders Only Cardiology at [address] [address] Antelmo Sharma MD [facility] [place] [address] S/P TAVR (transcatheter aortic valve [...] Visit Hematology and Oncology at [place] [phone] Markel Borjas MD [facility] [address] [place] [address] 11/02/2024 12:00 PM EDT Appointment Pulmonology at [place] [address] 11/02/2024 1:00 PM EDT Office Visit Rheumatology at [place] [address] Magdalena Peralta MD [facility] [place] [address] 03/01/2025 4:15 PM EDT Office Visit Dermatology at [place] [address] [facility] [place] [address] Marek Bonilla MD [address] [facility], [place] [address] Scheduled Orders Name Type Priority Associated Diagnoses Order Schedule Echocardiogram Transthoracic Echocardiography Routine S/P TAVR (transcatheter aortic valve replacement) Expected: 12/16/2023 (Approximate), Expires: 06/17/2024 EKG 12 Lead ECG Routine S/P TAVR (transcatheter aortic valve replacement) Expected: 12/16/2023 (Approximate), Expires: 06/17/2024 documented as of this encounter Visit Diagnoses Diagnosis S/P TAVR (transcatheter aortic valve replacement) documented in this encounter Care Teams Chief Sustainability Officer Relationship Specialty Start Date End Date Magdalena Acosta MD [address] [place] [address] PCP - General Family Medicine 02/05/23 documented as of this encounter
--- OUTSIDE RECORDS SUMMARY | 2024-06-15 14:09 | XMS_ITS | Encounter Summary ---
Author Organization [facility] Address [facility] [place] [address] Care Team Providers Care Magnetic Healer Name Role Phone Magdalena Acosta MD Primary Care Provider [phone] Encounter Details Date Type Department Care Team (Late st Contact Info) Description 07/29/2023 11:00 AM EST Office [place] [address] Magdalena Peralta MD [facility] [place] [address] Mixed connective tissue disease Social History Tobacco [...] 1:5120 speckled; VIC negative; Myositis panel with FLOOR SCRUBBER ab 149.1 (positive); Anti U1RNP IgG 119; [...] Viramontes. Magdalena Peralta MD Rheumatology Fellow Pager: [phone] * Kia Viramontes DO - 07/29/2023 11:00 AM EST ATTENDING ADDENDUM The patient's history was reviewed, and I interviewed and examined the patient with Dr. Peralta I agree with her summary, findings, and plan. documented in this encounter Plan of Treatment Upcoming Encounters Date Type Department Care Team (Late st Contact Info) Description 06/23/2024 2:00 PM EST Office Visit Hematology [place] [address] Markel Borjas MD [facility] [place] [address] 11/02/2024 12:00 PM EDT Appointment [place] [address] 11/02/2024 1:00 PM EDT Office [place] [address] Magdalena Peralta MD [facility] [place] [address] 03/01/2025 4:15 PM EDT Office Visit Dermatology at [place] [address] [facility] [place] [address] Marek Bonilla MD [address] [facility], [place] [address] documented as of this encounter Results * [...] PFT FEV1/FVC Pre-BD Z-Score 0 COMPAS PFT BTG47-32 Actual Pre-BD 2.41 % COMPAS PFT RLL56-27 Predicted 1.8 % COMPAS PFT JNC20-34 Pre-BD % of Predicted 134 % COMPAS PFT EBZ79-45 Pre-BD Z-Score 0.81 COMPAS PFT DLCO Hb [...] tissue documented in this encounter Care Teams Magnetic Healer Relationship Specialty Start Date End Date Magdalena Acosta MD [address] [place] [address] PCP - General Family Medicine 02/05/23 documented as of this encounter
--- OUTSIDE RECORDS SUMMARY | 2024-06-15 14:09 | XMS_ITS | Encounter Summary ---
Author Organization [facility] [place] [address] Care Team Providers Care Fabric Worker Fitter Name Role Phone Magdalena Acosta MD Primary Care Provider [phone] Reason for Visit * Reason Comments Aortic Stenosis Coronary Artery Disease Hypertension Encounter Details Date Type Department Care Team (Latest Contact Info) Description 11/16/2023 11:40 AM EDT TH Visit (TeleHealth) Cardiology at [address] [address] Jay Maza PA [facility] [place] [address] Aortic valve stenosis, etiology of cardiac valve disease unspecified; Coronary artery disease, unspecified vessel or lesion type, unspecified whether angina present, unspecified whether chemehuevi or transplanted heart Social History Tobacco Use [...] [facility] [place] Cards - [facility]) Problem List: Aortic valve stenosis: [...] fraction I35.0 Mild coronary artery disease by [facility] 11/09/2022 I25.10 Heart failure with reduced [...] notable for coronary artery protection given low mnuiv-ph-jbynfsos distance. There was no obstruction post Valve [...] had a very reassuring recent echo in [facility], in scanned docs. LVEF 55%. [...] leads Confirmed by MD Harshil, Haris Bell ([id number]) on 05/10/2023 8:11:46 AM Cardiac Cath 11/09/2022 [...] in one year. EKATERINA Thompson Time spent: 7490JGP4 0-5min 1356ZJI3 6-10min 9816FNC5 11-15min x 9457QTH3 16-20min 6769QXG4 21-30min 8320EQR0 31-40min 7581SJN3 40+ min Jay Maza PA-C Interventional Cardiology [facility] Pager [phone] documented in this encounter Plan of Treatment Upcoming Encounters Date Type Department Care Team (Late st Contact Info) Description 06/23/2024 2:00 PM EST Office Visit [place] [address] Markel Borjas MD [facility] DR HEMATOLOGY [place] [address] 11/02/2024 12:00 PM EDT Appointment Pulmonology at [place] [address] 11/02/2024 1:00 PM EDT Office Visit Rheumatology at [address] Magdalena Peralta MD [facility] [place] [address] 03/01/2025 4:15 PM EDT Office Visit Dermatology at [place] [address] [place] [address] Marek Bonilla MD [address], [place] [address] documented as of this encounter Visit Diagnoses Diagnosis Aortic valve stenosis, etiology of cardiac valve disease unspecified Coronary artery disease, unspecified vessel or lesion type, unspecified whether angina present, unspecified whether chemehuevi or transplanted heart documented in this encounter Care Teams Fabric Worker Fitter Relationship Specialty Start Date End Date Magdalena Acosta MD [address] [place] [address] PCP - General Family Medicine 02/05/23 documented as of this encounter
--- OUTSIDE RECORDS SUMMARY | 2024-06-15 14:09 | XMS_ITS | Encounter Summary ---
Author Organization [facility] Address [facility] [place] [address] Care Team Providers Care Oncology Account Specialist Name Role Phone Magdalena Acosta MD Primary Care Provider [phone] Encounter Details Date Type Department Care Team [...] Office Visit [place]ology [place] [address] Markel Borjas MD [facility] [address] [place] [address] 11/02/2024 12:00 PM EDT [place]oint[place] [address] 11/02/2024 1:00 PM EDT Office [place] [address] Magdalena Peralta MD [facility] [place] [address] 03/01/2025 4:15 PM EDT Office Visit Dermatology at [place] [address] [facility] [place] [address] Marek Bonilla MD [address], [address] [place] [address] documented as of this encounter Visit Diagnoses Not on filedocumented in this encounter Care Teams Oncology Account Specialist Relationship Specialty Start Date End Date Magdalena Acosta MD [address] [place] [address] PCP - General Family Medicine 02/05/23 documented as of this encounter
--- OUTSIDE RECORDS SUMMARY | 2024-06-15 14:09 | XMS_ITS | Encounter Summary ---
[place] [address] Care Team Providers Care Factory Focus Technician Name Role Phone Magdalena Acosta MD Primary Care Provider [phone] Reason for Visit * Reason Comments Annual Exam Encounter Details Date Type Department Care Team (Late st Contact Info) Description 02/22/2024 4:15 PM EDT Office Visit Dermatology at [address] [address] Marek Bonilla MD [address] [facility], [facility] A DERMATOLOGY [place], [place] [phone] Seborrheic keratosis; Rosacea; Nevus Social History Tobacco [...] cutaneous and ocular 3. Previously told by paste up artist apprentice that she had corneal tears from [...] Visit Hematology [place] [address] Markel Borjas MD [facility] [address] [place] [address] 11/02/2024 12:00 PM EDT Appointment [place] [address] 11/02/2024 1:00 PM EDT Office [place] [address] Magdalena Peralta MD [facility] [place] [address] 03/01/2025 4:15 PM EDT Office Visit Dermatology at [address] [place] [address] Marek Bonilla MD [address], [place] [address] documented as of this encounter Visit Diagnoses Diagnosis Seborrheic keratosis Other seborrheic keratosis Rosacea Nevus Benign neoplasm of skin, site unspecified documented in this encounter Care Teams Factory Focus Technician Relationship Specialty Start Date End Date Magdalena Acosta MD [address] [place] [address] PCP - General Family Medicine 02/05/23 documented as of this encounter
--- OUTSIDE RECORDS SUMMARY | 2024-06-15 14:09 | XMS_ITS | Encounter Summary ---
Author Organization [facility] [place] [address] Care Team Providers Care Portable Power Tool Repairer Name Role Phone Magdalena Acosta MD Primary Care Provider [phone] Reason for Referral * Diagnostic Test (Routine) - Closed Specialty Diagnoses / Procedures Referred By Contac t Referred To Contact Cardiology Diagnoses S/P TAVR (transcatheter aortic valve replacement) Procedures Echocardiogram Transthoracic Vinod Juárez PA [facility] [place] [address] [facility] [place] [address] Referral ID Status Reason Start Date Expiration Date V isits Requested Visits Authorized [id number] Closed Specialty Service Requested 05/22/2023 05/21/2024 1 1 Reason for Visit * Diagnostic Test (Routine) - Closed Specialty Diagnoses / Procedures Referred By Contac t Referred To Contact Cardiology Diagnoses S/P TAVR (transcatheter aortic valve replacement) Procedures Echocardiogram Transthoracic Vinod Juárez PA [facility] [place] [address] [facility] [place] [address] Referral ID Status Reason Start Date Expiration Date V isits Requested Visits Authorized [id number] Closed Specialty Service Requested 05/22/2023 05/21/2024 1 1 Encounter Details Date Type Department Care Team (Latest Contact Info) Description 07/08/2023 10:19 AM EST - 07/08/2023 11:59 PM EST Hospital Encounter Non-[place] [address] Alirio Esparza MD S/P TAVR (transcatheter aortic [...] EST Office Visit Hematology [place] [address] Markel Borjas MD [facility] [place] [address] 11/02/2024 12:00 PM EDT Appointment [place] [address] 11/02/2024 1:00 PM EDT Office [place] [address] Magdalena Peralta MD [facility] [place] [address] 03/01/2025 4:15 PM EDT Office Visit Dermatology at [place] [address] [facility] [address] [place] [address] Marek Bonilla MD [address] [place] [address] documented as of this encounter Procedures Procedure [...] EST Narrative 07/08/2023 12:26 PM EST 1 [place] [address] ? Echocardiogram Report Name: KIRSTIE, ONESIMO M ?Study Date: 07/08/2023 10:31 AMBP: 118/60 mmHg ? Patient Location: 4A : 1955 ? Height: 155 cm ? Account: [id number] Age: 67 yrs ? Weight: 74 kg [...] no significant change (post-procedure). Procedure Limited - 58314. Doppler - 57171. Color Doppler - 09371. Satisfactory quality. This study is limited because [...] Note Lee Kincaid MD - 07/08/2023 1 [place] [address] Echocardiogram Report Name: ONESIMO THACKER Study Date: 0:31 AMBP: 118/60 mmHg Patient Location: : 1955 Height: 155 cm Account: [id number] Age: 67 yrs Weight: 74 kg Gender: [...] is nosignificant change (post-procedure). Procedure Limited - 74853. Doppler - 90838. Color Doppler - 60925. Satisfactoryquality. This study is limited because of [...] replacement) documented in this encounter Care Teams Portable Power Tool Repairer Relationship Specialty Start Date End Date Magdalena Acosta MD [address] [place] [address] PCP - General Family Medicine 02/05/23 documented as of this encounter
--- OUTSIDE RECORDS SUMMARY | 2024-06-15 14:09 | XMS_ITS | Encounter Summary ---
Author Organization [facility] Address [facility] [place] [address] Care Team Providers Care Palliative Care Specialist Name Role Phone Magdalena Acosta MD Primary Care Provider [phone] Encounter Details Date Type Department Care Team [...] EST Office Visit Hematology [place] [address] Markel Borjas MD [facility] DR [place] [address] 11/02/2024 12:00 PM EDT Appointment [place] [address] 11/02/2024 1:00 PM EDT Office [place] [address] Magdalena Peralta MD [facility] [place] [address] 03/01/2025 4:15 PM EDT Office Visit Dermatology at [place] [address] [facility] [place] [address] Marek Bonilla MD [address], [address] [place] [address] documented as of this encounter Visit Diagnoses Not on filedocumented in this encounter Care Teams Palliative Care Specialist Relationship Specialty Start Date End Date Magdalena Acosta MD [address] [place] [address] PCP - General Family Medicine 02/05/23 documented as of this encounter
--- OUTSIDE RECORDS SUMMARY | 2024-06-15 14:09 | XMS_ITS | Encounter Summary ---
Author Organization Formerly [facility] Address [facility] [place] [address] Care Team Providers Care X Ray Nurse Name Role Phone Magdalena Acosta MD Primary Care Provider [phone] Reason for Visit * Reason Comments Coronary Artery Disease Hypertension Aortic Stenosis Encounter Details Date Type Department Care Team (Latest Contact Info) Description 07/20/2023 4:40 PM EST TH Visit (TeleHealth) Cardiology at [address] [address] Jay Maza PA [facility] [place] [address] HFrEF (heart failure with reduced ejection fraction); [...] Maza PA - 07/20/2023 4:40 PM EST [facility] [...] lieu of an in person office visit. Content Specialist: Antelmo Sharma MD ([facility] Cards) Maria Luz Mejia MD ([facility] / [facility] cards) Problem List: [...] fraction I35.0 Mild coronary artery disease by [facility] 11/09/2022 I25.10 Heart failure [...] notable for coronary artery protection given low shltp-id-fgeafpig distance. There was no obstruction post Valve deployment, but the stent could not be removed safely, so it was deployed. 4.0 mm x 30mm in left main. She was loaded on brilinta aka ticagrelor. Immediately post valve deployment, chest compressions to circulate central epinephrine which was administered given her hypotension, low LVEF, and low cardiac reserve. Next, the patient was transferred to [facility] for pressor and inotropic support. Pressors weaned overnight. Cardiac indices by thermodilution remained greater than 3 with continued Milrinone 0.125 mcg/kg/min. EKG the next day with NSR with stable NE/QRS intervals. Hemoglobin 7.8 [...] arms and wrists. Successful right transfemoral TAVR Oazll-ox-Vrznp with a 23 mm Lai 3 THV. [...] leads Confirmed by MD Harshil, Haris Bell ([id number]) on 05/10/2023 8:11:46 AM Cardiac Cath 11/09/2022 [...] in chart review and direct patient contact. [id number] 0-5min [id number] 6-10min [id number] 11-15min [id number] 16-20min x [id number] 21-30min [id number] 31-40min [id number] 40+ min Jay Maza PA-C Interventional Cardiology [facility] Heart and Vascular [facility] Pager [phone] documented in this encounter Plan of Treatment Upcoming Encounters Date Type Department Care Team (Late st Contact Info) Description 06/23/2024 2:00 PM EST Office Visit [place]ematology [place] [address] Markel Borjas MD [facility] [address] [place] [address] 11/02/2024 12:00 PM EDT [place] [address] 11/02/2024 1:00 PM EDT Office [place] [address] Magdalena Peralta MD [facility] [place] [address] 03/01/2025 4:15 PM EDT Office Visit Dermatology at [place] [address] [facility] [place] [address] Marek Bonilla MD [address] [facility], [place] [address] documented as of this encounter Visit Diagnoses Diagnosis HFrEF (heart failure with reduced ejection fraction) Hypertension, unspecified type Aortic valve stenosis, etiology of cardiac valve disease unspecified documented in this encounter Care Teams X Ray Nurse Relationship Specialty Start Date End Date Magdalena Acosta MD [address] [place] [address] PCP - General Family Medicine 02/05/23 documented as of this encounter
--- OUTSIDE RECORDS SUMMARY | 2024-06-15 14:09 | XMS_ITS | Encounter Summary ---
Author Organization [facility] Address [facility] [place] [address] Care Team Providers Care Dive Superintendent Name Role Phone Magdalena Acosta MD Primary Care Provider [phone] Encounter Details Date Type Department Care Team [...] Visit Hematology [place] [address] Markel Borjas MD [facility] [address] HEMATOLOGY [place] [address] 11/02/2024 12:00 PM EDT [place]oint[place] [address] 11/02/2024 1:00 PM EDT Office [place] [address] Magdalena Peralta MD [facility] [place] [address] 03/01/2025 4:15 PM EDT Office Visit Dermatology at [place] [address] [facility] [place] [address] Marek Bonilla MD [address] [facility] [address] [place] [address] documented as of this encounter Visit Diagnoses Not on filedocumented in this encounter Care Teams Dive Superintendent Relationship Specialty Start Date End Date Magdalena Acosta MD [address] [place] [address] PCP - General Family Medicine 02/05/23 documented as of this encounter
--- OUTSIDE RECORDS SUMMARY | 2024-06-15 14:09 | XMS_ITS | Encounter Summary ---
Author Organization [facility] Address [facility] [place] [address] Care Team Providers Care Loan Servicing Representative Name Role Phone Magdalena Acosta MD Primary Care Provider [phone] Encounter Details Date Type Department Care Team [...] EST Office Visit [place] [address] Markel Borjas MD [facility] DR [place] [address] 11/02/2024 12:00 PM EDT [place] [address] 11/02/2024 1:00 PM EDT [place] [address] Magdalena Peralta MD [facility] [place] [address] 03/01/2025 4:15 PM EDT Office Visit Dermatology at [place] [address] [facility] [place] [address] Marek Bonilla MD [address] [facility] [address], [address] Katherine [place] [address] documented as of this encounter Visit Diagnoses Not on filedocumented in this encounter Care Teams Loan Servicing Representative Relationship Specialty Start Date End Date Magdalena Acosta MD [address] [place] [address] PCP - General Family Medicine 02/05/23 documented as of this encounter
--- OUTSIDE RECORDS SUMMARY | 2024-06-15 14:09 | XMS_ITS | Encounter Summary ---
Author Organization [facility] Address [facility] [place] [address] Care Team Providers Care Energy Project Manager Name Role Phone Magdalena Acosta MD Primary Care Provider [phone] Encounter Details Date Type Department Care Team [...] EST Office Visit [place]ology [place] [address] Markel Borjas MD [facility] [address] [place] [address] 11/02/2024 12:00 PM EDT [place] [address] 11/02/2024 1:00 PM EDT [place] [address] Magdalena Peralta MD [facility] [place] [address] 03/01/2025 4:15 PM EDT Office Visit Dermatology at [place] [address] [facility] [place] [address] Marek Bonilla MD [address] [facility] [address], [address] [place] [address] documented as of this encounter Visit Diagnoses Not on filedocumented in this encounter Care Teams Energy Project Manager Relationship Specialty Start Date End Date Magdalena Acosta MD [address] [place] [address] PCP - General Family Medicine 02/05/23 documented as of this encounter
--- OUTSIDE RECORDS SUMMARY | 2024-06-15 14:09 | XMS_ITS | Encounter Summary ---
[place] [address] Care Team Providers Care Land Appraiser Name Role Phone Magdalena Acosta MD Primary Care Provider [phone] Reason for Referral * Consultation (Routine) - Closed Specialty Diagnoses / Procedures Referred By Contac t Referred To Contact Hematology and Oncology Diagnoses Anemia, unspecified type Consuelo Guerrero DO [address] [place] [address] [address] [place] [address] [facility] [address] [place] [address] Referral ID Status Reason Start Date Expiration Date V isits Requested Visits Authorized [id number] Closed Consult, Test & Treat 04/11/2024 04/11/2025 1 1 Encounter Details Date Type Department Care Team (Late st Contact Info) Description 04/11/2024 Transcribe Orders eDH Incoming Referrals [phone] Consuelo Guerrero DO [address] [place] [address] [address] [place] [address] Anemia, unspecified type Social History Tobacco Use Types Packs/Day Years Used Date Smoking Tobacco: Never Smokeless Tobacco: Never Alcohol Use Standard Drinks/Week Comments No 0 (1 standard drink = 0.6 oz pur e alcohol) none [facility] Inpatient Questions Answer Date Recorded Does Anyone [...] EST Office Visit Hematology [place] [address] Markel Borjas MD [facility] DR HEMATOLOGY [place] [address] 11/02/2024 12:00 PM EDT Appointment Pulmonology at [place] [address] 11/02/2024 1:00 PM EDT Office Visit Rheumatology at [place] [address] Magdalena Peralta MD [facility] [place] [address] 03/01/2025 4:15 PM EDT Office Visit Dermatology at [address] [place] [address] Marek Bonilla MD [address] [facility] [address] [place] [address] Scheduled Referrals Name Type Priority Associated Diagnoses Orde r Schedule Referral to Hematology and Oncology Outpatient Referral Routine Anemia, unspecified type Ordered: 04/11/2024 documented as of this encounter Visit Diagnoses Diagnosis Anemia, unspecified type documented in this encounter Care Teams Land Appraiser Relationship Specialty Start Date End Date Magdalena Acosta MD [address] [place] [address] PCP - General Family Medicine 02/05/23 documented as of this encounter
--- OUTSIDE RECORDS SUMMARY | 2024-06-15 14:10 | XMS_ITS | Encounter Summary ---
Author Organization [facility] Address [facility] [place] [address] Care Team Providers Care Sash Maker Name Role Phone Magdalena Acsota MD Primary Care Provider [phone] Encounter Details Date Type Department Care Team [...] Hematology [place] [address] Markel Borjas MD [facility] DR [place] [address] 11/02/2024 12:00 PM EDT Appointment [place] [address] 11/02/2024 1:00 PM EDT Office [place] [address] Magdalena Peralta MD [facility] [place] [address] 03/01/2025 4:15 PM EDT Office Visit Dermatology at [place] [address] [facility] [place] [address] Marek Bonilla MD [address] [facility] [address] [place] [address] documented as of this encounter Visit Diagnoses Not on filedocumented in this encounter Care Teams Sash Maker Relationship Specialty Start Date End Date Magdalena Acosta MD [address] [place] [address] PCP - General Family Medicine 02/05/23 documented as of this encounter
--- OUTSIDE RECORDS SUMMARY | 2024-06-15 14:10 | XMS_ITS | Encounter Summary ---
Author Organization [place] [id number] Care Team Providers Care Tire Fixer Name Role Phone Magdalena Acosta MD Primary Care Provider [phone] Reason for Visit * Auth/Cert (Routine) Specialty Diagnoses / Procedures Referred By Contac t Referred To Contact Diagnoses Symptomatic severe aortic stenosis with low ejection fraction NSTEMI, CHF Haris Chua MD [facility] [place] [address] [facility] Referral ID Status Reason Start Date Expiration Date Visits Re quested Visits Authorized [id number] 1 1 Encounter Details Date Type Department Care Team (Late st Contact Info) Description 05/12/2023 7:35 AM EDT Anesthesia Event [employer] [place] [address] Lynda Mcgowan MD [facility] [place] [address] Alie Park MD [facility] [place] [address] Anesthesia Record Procedure Summary Procedure Name Responsible [...] cephalic vein (lateral side of arm), left; bvcl-qmi-lfhgrs catheter system; Anatomical Landmarks; US Not Used; [...] RN LDA Cath/EP Sheath 05/12/23; 0733; 14 Ecuadorean (Fr); Right; Femoral; Arterial 05/12/23 0733 by Guerda Bender, RN 05/12/23 0830 by Guerda Bender RN LDA Cath/EP Sheath 05/12/23; 0734; 6 Ecuadorean (Fr); Right; Femoral; Venous 05/12/23 0734 by Guerda Bender RN 05/12/23 0817 by Guerda Bender RN LDA Cath/EP Sheath 05/12/23; 0734; 7 Ecuadorean (Fr); Left; Femoral; Arterial 05/12/23 0734 by Guerda Bender, RN 05/12/23 0837 by Guerda Bender RN LDA Cath/EP Sheath 05/12/23; 0734; 6 Ecuadorean (Fr); Left; Femoral; Venous 05/12/23 0734 by [...] Procedure Summary Date: 05/12/23 Room / Location: [facility]IST / [facility] CATH [facility]S Anesthesia Start: 734 Anesthesia [...] All Anesthesia Providers: Anesthesiologist: Lynda Mcgowan MD Curb Hop: Nico Graham MD Vitals Value Taken Time [...] 05/08/2023 ??? Mild coronary artery disease by [facility] 11/09/2022 05/08/2023 ??? Heart failure with [...] [facility],POSSIBLE PCI (WRVU 5.6) performed by Nitesh Escobedo MD at [facility] CATH LABS ??? PRO AORTOPLAS FOR SUPRAVALV STEN N/A 09/21/2016 @AORTOPLASTY FOR SUPRAVALVULAR STENOSIS (WRVU 29.33) performed by Alirio Esparza MD at [facility] MAIN OR ??? PRO REPLACEMENT PROSTHETIC AORTIC VALVE OPEN W CARDIOPULMONARY BYPASS HOMOGRF/STENT N/A 09/21/2016 @REPLACE AORTIC VALVE, OPEN, W\CPB, W\PROSTHETIC VALVE (WRVU 41.32) performed by Alirio Esparza MD at [facility] MAIN OR Social History Tobacco Use [...] 3 general, with a(n) intravenous induction Add-on [id number]-[id number] TAVR. In cardiogenic shock. Has arterial line, [...] EST Office Visit H[place] [address] Markel Borjas MD [facility] DR [place] [address] 11/02/2024 12:00 PM EDT Appointment [place] [address] 11/02/2024 1:00 PM EDT Office [place] [address] Magdalena Peralta MD [facility] [place] [address] 03/01/2025 4:15 PM EDT Office Visit Dermatology at [address] [place] [address] Marek Bonilla MD [address] [facility] [address], [place] [address] documented as of this encounter Visit Diagnoses [...] mL/hr documented in this encounter Care Teams Tire Fixer Relationship Specialty Start Date End Date Magdalena Acosta MD [address] [place] [address] PCP - General Family Medicine 02/05/23 documented as of this encounter
--- OUTSIDE RECORDS SUMMARY | 2024-06-15 14:10 | XMS_ITS | Encounter Summary ---
Author Organization [facility] [place] [address] Care Team Providers Care Acoustic Sensor Operator Name Role Phone Magdalena Acosta MD Primary Care Provider [phone] Reason for Referral * Diagnostic Test (Routine) - Closed Specialty Diagnoses / Procedures Referred By Contac t Referred To Contact Cardiology Diagnoses S/P TAVR (transcatheter aortic valve replacement) Procedures Echocardiogram Transthoracic Vinod Juárez PA [facility] [place] [address] [facility] [place] [address] Referral ID Status Reason Start Date Expiration Date V isits Requested Visits Authorized [id number] Closed Specialty Service Requested 05/22/2023 05/21/2024 1 1 * Home Health Care (Routine) - Closed Specialty Diagnoses / Procedures Referred By Contac t Referred To Contact Diagnoses S/P TAVR (transcatheter aortic valve replacement) Alirio Hudson MD [facility] CARDIOTHORACIC SURGERY [address] [facility] & [address] [place] [address] Referral ID Status Reason Start Date Expiration Date V isits Requested Visits Authorized [id number] Closed Consult, Test & Treat 05/22/2023 11/18/2023 999 999 * Consultation (Routine) - Closed Specialty Diagnoses / Procedures Referred By rCispin maxwell Referred To Contact Cardiology Diagnoses S/P TAVR (transcatheter aortic valve replacement) Alirio Hudson MD [facility] [place] [address] Cardiac Rehab, [address] [place] [address] Referral ID Status Reason Start Date Expiration Date V isits Requested Visits Authorized [id number] Closed Consult, Test & Treat 05/22/2023 11/18/2023 36 36 * Diagnostic Test (Routine) - Closed Specialty Diagnoses / Procedures Referred By Crispin maxwell Referred To Contact Cardiology Diagnoses Aortic valve stenosis, etiology of cardiac valve disease unspecified Procedures Echocardiogram Transthoracic Transesophageal Echocardiogram (YUSRA) Radha Hollins MD [facility] [place] [address] [facility] [place] [address] Referral ID Status Reason Start Date Expiration Date V isits Requested Visits Authorized [id number] Closed Specialty Service Requested 05/11/2023 05/10/2024 1 1 Reason for Visit * Auth/Cert (Routine) Specialty Diagnoses / Procedures Referred By Crispin maxwell Referred To Contact Diagnoses Symptomatic severe aortic stenosis with low ejection fraction NSTEMI, CHF Enrique Chua MD [facility] [place] [address] [facility] Referral ID Status Reason Start Date Expiration Date Visits Re quested Visits Authorized [id number] 1 1 Encounter Details Date Type Department Care Team (Latest Contact Info) Description 05/08/2023 9:14 AM EDT - 05/22/2023 10:46 AM EDT Hospital Encounter Heart and Vascular Unit Level 4 [place] [address] Enrique Chua MD [facility] [address] Juan Luis Gonzalez MD [facility] [address] Radha Hollins MD [facility] [address] Alirio Hudson MD S/P TAVR (transcatheter aortic valve replacement) (Primary Dx); Aortic valve stenosis, etiology of cardiac valve disease unspecified; Symptomatic severe aortic stenosis with low ejection fraction; Heart failure with reduced ejection fraction due to heart valve disease; Mild coronary artery disease by [facility] 11/09/2022; Mixed connective tissue disease; Neck [...] with PCP, Magdalena Acosta MD, or Primary Automotive Wholesale Parts Advisor, Maria Luz Mejia MD, in ~ 7-10 days. Patient to follow up with Recoater, Dr. Antelmo Sharma, in 2 weeks with an EKG, Echo, CBC, and CMP. Patient to follow up with Nephrology, their office to arrange. Qnwt-Mmgepj-zc interval: After initial 30 day follow-up appointment , all TAVR patients will follow-up again in one year with an echo. Inpatient Provider Contact Information: [facility] Section of Cardiac [place] 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 Secondary Diagnoses: Active Hospital Problems Diagnosis S/P TAVR (transcatheter aortic valve replacement) Cardiogenic shock Symptomatic severe aortic stenosis with low ejection fraction Mild coronary artery disease by [facility] 11/09/2022 Heart failure with reduced ejection [...] Tube Placement Right 05/18/2023 Laure Ricks PA [facility] INTERVENTIONL RAD PRG CATH PLMT LEFT HEART CATH & ARTS W/INJ & ANGIO IMG S&I N/A 11/09/2022 CORONARY ANGIOGRAPHY; W [facility],POSSIBLE PCI (WRVU 5.6) performed by Mario Alberto Escobedo MD at [facility] CATH LABS PRG COMBINED RIGHT & LEFT HEART CATH W/INJ L VENTRICULOGRAPHY, IMG S&I N/A 05/12/2023 COMBINED RIGHT & LEFT HEART CATH,INC INJ FOR L VENTRICULOGRAPHY (WRVU 5.99) performed by Antelmo Sharma MD at [facility] CATH LABS PRO AORTOPLAS FOR SUPRAVALV STEN N/A 09/21/2016 @AORTOPLASTY FOR SUPRAVALVULAR STENOSIS (WRVU 29.33) performed by Alirio Hudson MD at [facility] MAIN OR PRO REPLACE AORTIC VALVE (TAVR/FEDERICO)PERC FEMORAL ARTERY APPROACH 05/12/2023 @TRANSCATHETER AORTIC VALVE REPLACEMENT (TAVR), PERCUTANEOUS FEMORAL (WRVU 22.47) performed by Alirio Hudson MD at [facility] CATH LABS PRO REPLACEMENT PROSTHETIC AORTIC VALVE OPEN W CARDIOPULMONARY BYPASS HOMOGRF/STENT N/A 09/21/2016 @REPLACE AORTIC VALVE, OPEN, W\CPB, W\PROSTHETIC VALVE (WRVU 41.32) performed by Alirio Hudson MD at [facility] MAIN OR Prior To Admission Medications Medications [...] Major Procedures/Operations: 05/12/23: Successful right transfemoral TAVR Nmfqe-gf-Sobaf with a 23 mm Lai 3 THV. Left coronary protection with left main MINNA. Hospital Course: #Severe prosthetic s/p valve in valve TF TAVR #Low coronary heights s/p left main stent for coronary protection #Type 2 NSTEMI, present on arrival, resolved #Acute decompensated HFrEF #Cardiogenic shock #EVANS / Cardiorenal syndrome Purnima Thacker was admitted to [facility] on 05/08/2023 via the Cardiology Service [...] TAVR and she was brought to the senior label specialist the following morning where Drs. Alirio [...] if you have questions. Please call your Recoater's office if you have any discharge or drainage from your procedural sites. Your Recoater, Dr. Antelmo Sharma and/or the Linker Up may be reached at . Antibiotic prophylaxis: You will need to take antibiotics prior to many invasive tests and treatments, such as dental cleaning, which should be done every 6 months. Your primary care physician or your dentist can prescribe this medication. Please refer to the card with the [employer] Guidelines for more information. You have been provided with a copy of this card. Please refer to the [employer] Guidelines for more information. Good [...] should resume a low fat, low cholesterol, [employer] Diet Driving: No restrictions. Shower/Bath: You may shower daily. No baths, soaking, or swimming for the first week. Wound care: Wash the sites daily with soap and rinse well, pat dry. Assess for any signs of infection such as increased redness, pain, warmth or drainage. Please call your social work specialist's office if you have any discharge or drainage from your procedural sites. If there is a lot of swelling, apply mamta wraps during the day and remove at bedtime. Elevate your legs when you are sitting. Home oxygen therapy: N/A Follow up appointments: Please schedule a follow-up appointment with your PCP, Magdalena Acosta MD, or Primary Automotive Wholesale Parts Advisor in ~ 7-10 days. You have a follow-up appointment with your Recoater, Dr. Antelmo Sharma, in 2 weeks with an EKG, Echo, and labs prior to your appointment. You will need follow-up with Nephrology, their office will arrange. Ygtj-Ifhrhj-sw interval: After initial 30 day follow-up appointment [...] AM Magdalena Peralta MD [place] [facility] at: Interface Analyst Area 5C [phone] 02/11/2024 2:00 PM Marek Bonilla MD Dermatology at [place] Arrive at: [facility] [address] [phone] Future Orders Complete By Expires Type and Screen Future Surgery, [facility] [place]GRAM ONLY) [[id number] Custom] 05/11/2023 Process Instructions: This test is intended ONLY for patients with upcoming surgery for testing prior to the day of surgery obtained through the same day program (4V or SDP). For ALL OTHER PATIENTS, order a Type and Screen (RDW462) This order includes the physician order for an ABO Recheck if requested by the Blood Bank. Scheduling Instructions: Comments: Questions: Date of surgery: CBC (with Diff) [RUV093 Custom] 06/05/2023 12/05/2023 Process Instructions: INCLUDES: WBC, RBC, Hgb, Hct, Platelets, RBC Indices and Differential Scheduling Instructions: Comments: Questions: Comprehensive metabolic panel (non-fasting) [LAB17 Custom] 06/05/2023 08/20/2023 Process Instructions: INCLUDES: Calcium, T Protein, Albumin, AST, ALT, Alk Phos, T Bili, BUN, Creat, GFR, Glucose, Lytes. Scheduling Instructions: Comments: Questions: Echocardiogram Transthoracic [57287 CPT(R)] 06/05/2023 12/05/2023 Process Instructions: Scheduling Instructions: Questions: Where will study be performed?: [facility] Does the patient have Congenital Heart Disease?: Does patient require sedation?: GA rationale: EKG 12 Lead [24141 CPT(R)] 06/05/2023 12/05/2023 Process Instructions: Scheduling Instructions: Questions: Which location will this be performed?: [place] Is a rhythm strip needed?: No [facility] Devices [EQ161 Custom] As directed Process Instructions: Scheduling Instructions: Questions: Device Needed: WALKER (E0143) Patient Height (cm): 154.9 cm (5' 0.98) Patient Weight: 75.4 kg (166 lb 3.2 oz) Diagnosis: Unsteady gait when walking Referral to Cardiac Rehab [DHG254 Custom] As directed Process Instructions: If no [...] VNA SERVICES PATIENT'S LOCATION: Purnima Thacker [address] [place] [phone] (home) Electrician Shop's Name: Self and brother Raymond In discussion with the attending physician, it is certified that this patient is under his/her careand that MD, or an TOE POUNDER, GIANT TIRE REPAIRER, or PA who is working directly with him/her, had a fsta-tv-snov encounter that meets the physician yhxb-zr-mfdy encounter requirements with this patient on 05/22/2023. [...] for managing ADLs. HOME HEALTH CARE AGENCY: [facility]. [address] [place] [address] PHONE: [phone] FAX: [phone] Start of care: Ideally 24-48 hours after [...] Magdalena Acosta MD [address] / [facility] [address] All VNA agencies which cover the area of patient's residence have been reviewed, either verbally joao writing, and patient has chosen the home health care agency noted. Questions: Disciplines Requested: Physical Therapy Occupational Therapy Discharge References/Attachments None Arrangements for VNA/home care: As above. (delete if no VNA) Signed: EKATERINA NAVARRETE [facility] Section of Cardiac Surgery Date: 05/22/2023 CC: Magdalena Acosta MD ViloniaMario Alberto MD [address] [place] [address] documented in this encounter Discharge Instructions * Patient Instructions* Vinod Juárez PA - 05/22/2023 9:32 AM EDT TAVR Discharge Instructions: Call your doctor if: You have a fever of greater than 101 degrees, shaking chills, if you develop redness or drainage from your procedure sites, or if you have questions. Please call your Recoater's office if you have any discharge or drainage from your procedural sites. Your Recoater, Dr. Antelmo Sharma and/or the Linker Up may be reached at . Antibiotic prophylaxis: You will need to take antibiotics prior to many invasive tests and treatments, such as dental cleaning, which should be done every 6 months. Your primary care physician or your dentist can prescribe this medication. Please refer to the card with the [employer] Guidelines for more information. You have been provided with a copy of this card. Please refer to the [employer] Guidelines for more information. Good [...] should resume a low fat, low cholesterol, [employer] Diet Driving: No restrictions. Shower/Bath: You may shower daily. No baths, soaking, or swimming for the first week. Wound care: Wash the sites daily with soap and rinse well, pat dry. Assess for any signs of infection such as increased redness, pain, warmth or drainage. Please call your social work specialist's office if you have any discharge or drainage from your procedural sites. If there is a lot of swelling, apply mamta wraps during the day and remove at bedtime. Elevate your legs when you are sitting. Home oxygen therapy: N/A Follow up appointments: Please schedule a follow-up appointment with your PCP, Magdalena Acosta MD, or Primary Automotive Wholesale Parts Advisor in ~ 7-10 days. You have a follow-up appointment with your Recoater, Dr. Antelmo Sharma, in 2 weeks with an EKG, Echo, and labs prior to your appointment. You will need follow-up with Nephrology, their office will arrange. Qrfx-Hkknum-pn interval: After initial 30 day follow-up appointment [...] ins ( tef) Haven Ba, PT Pager: [phone] Physical Therapy Inpatient Rehabilitation Department * Nico [...] 0600 and on the weekends please page [phone]. * Jory Paniagua - 05/20/2023 3:52 PM [...] vomiting Last Bowel Movement: 05/20/23 Jory Paniagua Lead Principal Technical Architect * Tong Mike, OT - 05/20/2023 [...] Tube Placement Right 05/18/2023 Laure Ricks PA [facility] INTERVENTIONL RAD PRG CATH PLMT LEFT HEART CATH & ARTS W/INJ & ANGIO IMG S&I N/A 11/09/2022 CORONARY ANGIOGRAPHY; W [facility],POSSIBLE PCI (WRVU 5.6) performed by Mario Alberto Escobedo MD at [facility] CATH LABS PRG COMBINED RIGHT & LEFT HEART CATH W/INJ L VENTRICULOGRAPHY, IMG S&I N/A 05/12/2023 COMBINED RIGHT & LEFT HEART CATH,INC INJ FOR L VENTRICULOGRAPHY (WRVU 5.99) performed by Antelmo Sharma MD at [facility] CATH LABS PRO AORTOPLAS FOR SUPRAVALV STEN N/A 09/21/2016 @AORTOPLASTY FOR SUPRAVALVULAR STENOSIS (WRVU 29.33) performed by Alirio Hudson MD at [facility] MAIN OR PRO REPLACE AORTIC VALVE (TAVR/FEDERICO)PERC FEMORAL ARTERY APPROACH 05/12/2023 @TRANSCATHETER AORTIC VALVE REPLACEMENT (TAVR), PERCUTANEOUS FEMORAL (WRVU 22.47) performed by Alirio Hudson MD at [facility] CATH LABS PRO REPLACEMENT PROSTHETIC AORTIC VALVE OPEN W CARDIOPULMONARY BYPASS HOMOGRF/STENT N/A 09/21/2016 @REPLACE AORTIC VALVE, OPEN, W\CPB, W\PROSTHETIC VALVE (WRVU 41.32) performed by Alirio Hudson MD at [facility] MAIN OR Social History: Patient lives alone. Home Setup: Pt lives on one level with tub shower and three steps to enter. DME: none used MARINE ENGINEERING PROFESSOR Baseline ADL/Mobility: Independent with ADLs and IADLs. [...] awareness: WFL Vision & Perception: corrective lenses aircraft time clerk Communication: WFL Range of motion, strength, [...] Discharge planning. Total Minutes, Occupational Therapy: 28 ([id number]) OT Evaluation Code Rationale: Diagnosis & Pertinent Co-Morbidities affecting Plan of Care: see PMHx Occupational Profile & Client History: Brief Expanded Extensive x Assessment of Occupational Performance: 1-3 performance deficits 3-5 performance deficits x 5 + performance deficits Clinical Decision Making: Low Moderate High x Clinical decision making of moderate complexity using standardized patient assessment instrument and measurable assessment of functional outcome. Pager: [phone] TONG MIKE OT 05/20/2023 Occupational Therapy Rehabilitation [...] 0600 and on the weekends please page [phone]. * Rylie Rodriguez MD - 05/19/2023 3:59 [...] and plan. Cynthia Blackburn MD Nephrology Pager: [phone] * Diana Espino - 05/19/2023 1:49 PM EDT Food Service Associate Encounter Note Patient Name: Purnima Thacker : [id number] MR#: [id number] Admit Date: 05/08/2023 9:14 AM Hospital Day [...] as stated. Total Minutes, Physical Therapy: 38 ([phone]) Henrik Navarrete, MARINE ENGINEERING PROFESSOR Pager: [phone] Physical Therapy Inpatient Rehabilitation Department * Nico [...] 0600 and on the weekends please page [phone]. * Laure Ricks PA - 05/19/2023 7:56 [...] Ricks PA-C Interventional Radiology IR Team Pager [phone] * Consuelo Espinoza RN - 05/18/2023 4:13 PM EDT ANGIO NURSING DATABASE Name: Purnima Thacker Date of : 1955 AGE: 67 y.o. Address: [address] [place] [phone] (home) Mobile: No relevant phone numbers on [...] fraction I35.0 Mild coronary artery disease by [facility] 11/09/2022 I25.10 Heart failure with [...] and plan. Cynthia Blackburn MD Nephrology Pager: [phone] * Magdalena Puri, FARM MORTGAGE AGENT - 05/18/2023 10:51 AM EDT Images from the original note were not included. [facility] [address] STRUCTURAL HEART DISEASE CONSULTATION NOTE PRIMARY CARE [...] stenosis. She is now status post TAVR Ceguc-qz-Cmekp with a 23 mm Lai 3 THV 05/12/[address] Sharma. Preliminary findings: Successful right transfemoral TAVR Hfttb-in-Jxctc with a 23 mm Lai 3 THV. [...] ejection fraction Mild coronary artery disease by [facility] 11/09/2022 Heart failure with reduced ejection [...] stenosis. She is now status post TAVR Hxvyb-vu-Rvxmp with a 23 mm Lai 3 THV 05/12/[address] Sharma. Janet TAVR case notable for coronary LAD protective MINNA. Status post TAVR, the patient was transferred to [facility] [...] Magdalena Puri APRN Structural Heart Team Pager [phone] Team Office Please see addendum by Dr. Sharma for final plan and recommendations Associated attestation - Antelmo Sharma MD - 05/19/2023 10:52 PM EDT I have reviewed Magdalena Puri APRN's above history and I agree with the details as written. The assessment and plan were formulated in discussion with me and I agree with them as documented. Antelmo Sharma MD Pager [phone] * Nico Palacios PA - 05/18/2023 8:13 [...] 0600 and on the weekends please page [phone]. * Loli Hernandez, PT - 05/17/2023 5:27 [...] plan as stated. Time IN / OUT: 0310-0406 Total Minutes, Physical Therapy: 54 Billing Code: te-sx2, te-f, gait LOLI HERNANDEZ PT Pager: [phone] Physical Therapy Inpatient Rehabilitation Department * Cynthia [...] Well controlled. Cynthia Blackburn MD Nephrology Pager: [phone] * Maggie Mara, FARM MORTGAGE AGENT - 05/17/2023 8:26 AM EDT Cardiac [...] 0600 and on the weekends please page [phone]. * Guerda Del Valle - 05/16/2023 10:44 AM EDT Nutrition Services Note - Low Nutrition Acuity Purnima Thacker is a 67 y.o. female Reason for intervention: hospital day 9 Nutrition Plan: Continue diet order Encourage good PO Lasix and Zofran noted Added special serve: open containers Monitor weight Patient scheduled for a hospital day 9 nutrition evaluation. Meter Installer And Remover met with pt at bedside. Pt reports that her appetite and PO has much improved since admission. Denies nausea/vomiting or trouble chewing/swallowing. Meter Installer And Remover provided snack list but pt not interested in adding snacks at this time. Her only concern was that she is worried that she will eat too much which will cause too much pressure in her stomach. Meter Installer And Remover assured pt and suggested eating smaller but [...] Last Bowel Movement: 05/10/23 Guerda Del Valle Lead Principal Technical Architect * Vinod Juárez PA - 05/16/2023 [...] 0600 and on the weekends please page [phone]. * Michael Jeffers MD - 05/16/2023 8:11 AM EDT Images from the original note were not included. Hypertension-Nephrology Inpatient Follow-up Purnima Thacker [id number] 1955 ID: 67 y.o. old female seen [...] IRONSAT 12 (L) 05/16/2023 SFOLATE >20.0 07/03/2022 [id number] 07/03/2022 Lab Results Component Value Date [...] Dr. Ayoub. Please contact me at phone: [phone] or pager: [phone] with any questions. Michael Jeffers MD Nephrology [...] -Nephrology consulted, labs and renal US ordered -Fenton removed, ambulated around the unit -bilateral pleural [...] 0600 and on the weekends please page [phone]. * Hortencia Cody MD - 05/15/2023 2:07 [...] not included. Hypertension-Nephrology Inpatient Follow-up Purnima Thacker [id number] 1955 ID: 67 y.o. old female seen [...] HGB 7.8 (L) 05/13/2023 SFOLATE >20.0 07/03/2022 [id number] 07/03/2022 Lab Results Component Value Date [...] Dr. Ayoub. Please contact me at phone: [phone] or pager: [phone] with any questions. Michael Jeffers MD Nephrology [...] last 720 hours. T/L/D Art ETT CVL Kemmerer ASSESSMENT, MANAGEMENT, and DECISION MAKIN y.o. female [...] outlined inthis evaluation. HAVEN BA, PT Pager: [phone] Physical Therapy Inpatient Rehabilitation Department Time IN / OUT: 2143-5065 Total time: Total Minutes, Physical Therapy: 30 [...] 0600 and on the weekends please page [phone]. * Antelmo Sharma MD - 05/14/2023 7:56 AM EDT Images from the original note were not included. [place] [id number] STRUCTURAL HEART DISEASE CONSULTATION NOTE PRIMARY CARE [...] stenosis. She is now status post TAVR Jvivk-de-Hraxz with a 23 mm Lai 3 THV 05/12/[address] Sharma. Preliminary findings: Successful right transfemoral TAVR Bfzqx-ko-Zlhrn with a 23 mm Lai 3 THV. [...] ejection fraction Mild coronary artery disease by [facility] 11/09/2022 Heart failure with reduced ejection [...] stenosis. She is now status post TAVR Iilxe-se-Zauia with a 23 mm Lai 3 THV 05/12/[address] Sharma. Janet TAVR case notable for coronary LAD protective MINNA. Status post TAVR, [facility] [...] Brody Kaplan APRN Structural Heart Team Pager [phone] Team Office Please see addendum by Dr. [...] exposure. Nephrology consultationtoday. Antelmo Sharma MD Pager [phone] * Antelmo Cardenas RN - 05/14/2023 5:18 AM EDT Pt AOx4, complaining of mild/moderate generalized pain (states her Meloxicam is effective at home) currently refusing prn oxycodone. NAEON, hemodynamically stable on Milrinone, Maps >65, ST in [id number]'s down to NSR with frequent multifocal PVC's. [...] from the original note were not included. [facility] [place] [address] STRUCTURAL HEART DISEASE PROGRESS NOTE PRIMARY CARE [...] stenosis. She is now status post TAVR Zywmk-uj-Xacep with a 23 mm Lai 3 THV 05/12/[address] Sharma. Preliminary findings: Successful right transfemoral TAVR Jcdxv-ua-Idtey with a 23 mm Lai 3 THV. [...] or perforation. Interval Events: - Transferred to [facility] post- TAVR for pressor/inotropic support [...] ejection fraction Mild coronary artery disease by [facility] 11/09/2022 Heart failure with reduced ejection [...] stenosis. She is now status post TAVR Qrgxy-xz-Plnyd with a 23 mm Lai 3 THV [...] Brody Kaplan APRN Structural Heart Team Pager [phone] Team Office Please see addendum by Dr. [...] DAPT moving forward. Antelmo Sharma MD Pager [phone] * Bonita Miguel PA - 05/13/2023 8:30 AM EDT Cardiac Surgery Progress Note Purnima Thacker is a 67 y.o. 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 PMH of s/p tissue AVR (2017), mixed connective tissue disease HTN, HLD, NICOLAS, diverticulosis, rosacea, essential tremor, and depression. 24h Events: From senior label specialist for above procedure Extubated at ~1600 [...] soft b/l, no evidence of hematoma. Tubes/Lines/Drains: Fenton, RIJ, A-line, Art, PIV Assessment/Plan: 67 y.o. [...] 0600 and on the weekends please page [phone]. * Onelia Schwartz MD - 05/12/2023 1:44 [...] ejection fraction Mild coronary artery disease by [facility] 11/09/2022 Heart failure with reduced ejection [...] FiO2 weaned to 40%. 1105: ABG 7.34/42/73/22 3748-9426: SBT performed and passed on these settings [...] PCP: Magdalena Acosta MD PCP phone number: [phone] Date of Admission: 05/08/2023 ( Hospital Day [...] 1447 PHART -- 7.34* 7.34* -- -- [id number] -- 30* 30* -- -- PO2ART -- 72* 81* -- -- GUI5UQJ -- 16.0* 15.7* -- -- LACTATEVEN 2.4* 2.7* 2.7* 4.8* 2.9* VBG (Venous Blood Gas) Recent Labs 05/12/23 0700 05/12/23 0318 05/12/2310505/11/23193905/11/23 1447 LACTATEVEN 2.4* 2.7* 2.7* 4.8* 2.9* Mixed Venous Sat Recent Labs 05/12/23 0508 05/12/23 0321 05/12/23 0114 05/12/23 0030 [id number] 30.7 32.7 37.3 25.1 Objective: Vitals Last [...] questions please contact the health critical care specialist that requested your imaging first. Electronically signed by: ALIX RUVALCABA MD, [facility] ([phone]), at 05/10/2023 1:[address] Cardiac for [...] questions please contact the health critical care specialist that requested your imaging first. Electronically signed by: Cullen Narayanan MD, [facility] ([phone]), at 05/11/2023 4:[address] Angiogram Abdomen [...] questions please contact the health critical care specialist that requested your imaging first. Electronically signed by: Eileen Gomes MD, [facility] ([phone]), at 05/11/2023 2:42 PM XR Chest One [...] questions please contact the health critical care specialist that requested your imaging first. Electronically signed by: Will Rowe MD, [facility] ([phone]), at 05/11/2023 11:57 PM XR Chest One [...] questions please contact the health critical care specialist that requested your imaging first. Electronically signed by: Will Rowe MD, [facility] ([phone]), at 05/12/2023 3:16 AM Assessment & Plan: [...] and inotrope. 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 * Antelmo Sharma MD - 05/11/2023 9:45 AM EDT Images from the original note were not included. [place] [place] [id number] STRUCTURAL HEART DISEASE CONSULTATION NOTE PRIMARY CARE [...] who had been referred for possible TAVR xzrtj-uc-vnbjy evaluation. Her primary symptoms are of dyspnea [...] [facility]. 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 [...] ejection fraction Mild coronary artery disease by [facility] 11/09/2022 Heart failure with reduced ejection [...] Lactate, whole blood, send to lab ([facility]) Result Value Ref Range Lactate WB 3.1 (H) 0.5 - 2.2 mmol/L Heparin (unfractionated) Level Result Value Ref Range Heparin UFH Level 0.46 IU/mL Lactate, whole blood, send to lab ([facility]) Result Value Ref [...] leads Confirmed by MD Harshil, Enrique Bell ([id number]) on 05/10/2023 8:11:46 AM Cardiac Cath 11/09/2022 [...] alert Dr. Hudson of her inpatient status, orinda primary cardiac surgeon. Based on recent clinic visit, tentative plan had been for TAVR JANET ferrera given her chronological age. Cardiac cath 11/09/2022 notable for non-obstructive coronary disease. TAVR CTAs planned for today. Will review her case with cardiac surgery to determine best timing and therapies for her valve intervention. Addendum 05/11/2023 6:48 PM Due to decompensating HFrEF, she was transferred to [facility] this afternoon for further management. TAVR CT imaging support for adequate ileofemoral access. Given her acute deterioration today, will planfor RTF TAVR on 05/12/2023. Brody KaplanANURAG Structural Heart Disease Pager [phone] Please see addendum by Dr. Sharma for [...] signed and dated. Antelmo Sharma MD Pager [phone] * Harini Lance MD - 05/11/2023 6:06 AM EDT Images from the original note were not included. Cardiology Progress Note Patient info: Name: Purnima Thacker : 1955 PCP: Magdalena Acosta MD PCP phone number: [phone] Date of Admission: 05/08/2023 ( Hospital Day [...] questions please contact the health critical care specialist that requested your imaging first. Electronically signed by: ALIX RUVALCABA MD, [facility] ([phone]), at 05/10/2023 1:25 PM TTE: 05/08 -Left [...] 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) Mild coronary artery disease by [facility] 11/09/2022 Hyperlipidemia, unspecified NICOLAS (obstructive sleep [...] PCP: Magdalena Acosta MD PCP phone number: [phone] Date of Admission: 05/08/2023 ( Hospital Day [...] 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) Mild coronary artery disease by [facility] 11/09/2022 Hyperlipidemia, unspecified NICOLAS (obstructive sleep [...] PCP: Magdalena Acosta MD PCP phone number: [phone] Date of Admission: 05/08/2023 ( Hospital Day [...] Gas) No results found for: PHART, PO2ART, FWZ3HZL, TUN7SKD Microbiology: Microbiology Results (Last 30 days) No [...] Diet: Daily Healthy Menu Choices/Cardiac diet ([facility] Lines: Peripheral IV Line - Single [...] 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) Mild coronary artery disease by [facility] 11/09/2022 Hyperlipidemia, unspecified NICOLAS (obstructive sleep [...] fraction I35.0 Mild coronary artery disease by [facility] 11/09/2022 I25.10 Heart failure with reduced ejection fraction due to heart valve disease I50.20, I38 Cardiogenic shock R57.0 S/P TAVR (transcatheter aortic valve replacement) Z95.2 Past Medical History: Diagnosis Date Anemia Past Surgical History: Procedure Laterality Date PRG CATH PLMT LEFT HEART CATH & ARTS W/INJ & ANGIO IMG S&I N/A 11/09/2022 CORONARY ANGIOGRAPHY; W [facility],POSSIBLE PCI (WRVU 5.6) performed by Mario Alberto Escobedo MD at [facility] CATH LABS PRO AORTOPLAS FOR SUPRAVALV STEN N/A 09/21/2016 @AORTOPLASTY FOR SUPRAVALVULAR STENOSIS (WRVU 29.33) performed by Alirio Hudson MD at [facility] MAIN OR PRO REPLACEMENT PROSTHETIC AORTIC VALVE OPEN W CARDIOPULMONARY BYPASS HOMOGRF/STENT N/A 09/21/2016 @REPLACE AORTIC VALVE, OPEN, W\CPB, W\PROSTHETIC VALVE (WRVU 41.32) performed by Alirio Hudson MD at [facility] MAIN OR Social History and Habits: Social [...] fraction I35.0 Mild coronary artery disease by [facility] 11/09/2022 I25.10 Heart failure with reduced ejection fraction due to heart valve disease I50.20, I38 Cardiogenic shock R57.0 S/P TAVR (transcatheter aortic valve replacement) Z95.2 Past Medical History: Diagnosis Date Anemia Past Surgical History: Procedure Laterality Date PRG CATH PLNE LEFT HEART CATH & ARTS W/INJ & ANGIO IMG S&I N/A 11/09/2022 CORONARY ANGIOGRAPHY; W [facility],POSSIBLE PCI (WRVU 5.6) performed by Mario Alberto Escobedo MD at [facility] CATH LABS PRO AORTOPLAS FOR SUPRAVALV STEN N/A 09/21/2016 @AORTOPLASTY FOR SUPRAVALVULAR STENOSIS (WRVU 29.33) performed by Alirio Hudson MD at [facility] MAIN OR PRO REPLACEMENT PROSTHETIC AORTIC VALVE OPEN W CARDIOPULMONARY BYPASS HOMOGRF/STENT N/A 09/21/2016 @REPLACE AORTIC VALVE, OPEN, W\CPB, W\PROSTHETIC VALVE (WRVU 41.32) performed by Alirio Hudson MD at [facility] MAIN OR Social History and Habits: Social [...] Hgb 10.5 CMP - Cr 1.1 BNP 21576 HsTrop 1358 Lactate 1.6 D-dimer 1183 Interval History Patient was admitted to [facility] due to concern on low [...] Code Status: Attempt Cardiopulmonary Resuscitation - Inpatient Kluadia Reid MD Internal Medicine PGY-1 Pager [phone], M1-S1 Service Associated attestation - Juan Luis Gonzalez MD - 05/08/2023 10:00 PM EDT Cardiology Attending Addendum Active Hospital Problems Diagnosis Symptomatic severe aortic stenosis with low ejection fraction Heart failure with reduced ejection fraction due to heart valve disease Mild coronary artery disease by [facility] 11/09/2022 Hyperlipidemia, unspecified History of aortic valve replacement Resolved Hospital Problems No resolved problems to display. I have interviewed and examined the patient, reviewed the available data, and have discussed my findings, assessment and plan with the patient and the team on admission to S2 service (from [facility] service) today. I agree with [...] PCP: Magdalena Acosta MD PCP phone number: [phone] Date of Admission: 05/08/2023 ( Hospital Day [...] Hgb 10.5 CMP - Cr 1.1 BNP 81698 HsTrop 1358 Lactate 1.6 D-dimer 1183 Vasoactive [...] Diet: Daily Healthy Menu Choices/Cardiac diet ([facility]) DVT Prophylaxis: heparin gtt GI Prophylaxis: none Code Status: Attempt Cardiopulmonary Resuscitation - Inpatient Dispo: Pending clinical course Lincoln Sal MD Internal Medicine, PGY-1 Cardiology [facility] #[id number] 05/08/23 12:06 PM Cardiology Staff [...] to the planned procedure. Hand Hygiene: The employment counselor did perform hand hygiene prior to arterial [...] Successful arterial line placement. Crispin Timmons MD Linker Up Associated attestation - Onelia Schwartz MD - [...] (flow was non-pulsatile) and appearance of blood. Fenton-Marily catheter was placed and locked at 55 [...] information for follow-up [facility], [place] [address] [place] [address] Cardiac Rehab, [facility] [address] [place] [address] [place] [address] [facility], [place] [address] [place] [address] Transportation: family or friend will provide *Brother [...] Type: *No Product type* / Secondary Insurance: [place] Prescription Coverage: Yes This plan was formulated with input from patient, family (please identify family/friend involved ifapplicable) and team. All are in agreement with plan. Aliza Martino MSN-Ed, RN ACM environmental services tech Office of Care Management Pager #[phone] * Plan of Care - Favian Mckeon [...] Chaudhary RN - 05/21/2023 4:46 PM EDTSummary: [facility] referral OFFICE OF CARE MANAGEMENT [...] Type: *No Product type* / Secondary Insurance: COPsync [facility] Last Physical Therapy Recommendation: (Home with [...] geographic area. They have requested referrals to: [facility] [address] [place] [address] [facility] [place] Note routed to a [employer] who will communicate referrals to facilities and provide any required information. Transportation: family or friend will provide *Brother Raymond on Tuesday 05/22 at 1000 Barriers to discharge: Does not have home 22/02 assist available until tomorrow Tuesday 05/22 Plan going forward: Discharge home into the 22/02 home care of brother Raymond with [facility] and [facility] PT/OT services on Tuesday 05/22 [...] Attending: All Staff: Staff Role Juanita Almaguer Tail Dogger Laure Ricks PA Physician Office Machine Technician Magdalena Rodriguez project structural engineer Nurse Consuelo Espinoza RN Radiology Nurse Post-operative [...] Type: *No Product type* / Secondary Insurance: [place] Last Physical Therapy Recommendation: alf facility, [...] discuss discharge planning needs. provide the [facility], Office of Care Management letter from the Credit Collections Analyst pertaining to rehab referrals. provide a [...] for referral. They have requested referrals to: [facility] [address] [place] [address] [facility] ([facility]) [address] [place] [address] (Accepts pts only after exhausting all other local SNF options) [facility] ([facility]) ([facility]) [address] [place] [address] PHONE: [phone] FAX: [phone] [facility] [place] ([facility]) [facility]) [address] [place] [address] PHONE: [phone] FAX: [phone] Note routed to a [employer] who will communicate referrals to facilities and [...] RN - 05/17/2023 10:25 AM EDT [facility] Purnima Thacker was seen [...] from the original note were not included. [facility] NEPHROLOGY/HYPERTENSION CONSULT NOTE PATIENT: Purnima Thacker : 1955 Magdalnea Acosta MD REASON FOR CONSULTATION: EVANS HPI: [...] in her course. She ultimately underwent a twhcv-qx-xdiul procedure on and tolerated it well (see operative details). [facility] and sedated on some pressors support.. [...] 1423 05/12/23 1105 PHART 7.39 7.37 7.34* NFK1PQP 33* 36 42 PO2ART 101 102 73* JQZ1ZTT 19.5* 20.4 22.1 LACTATEVEN 1.5 1.8 2.8* IWE5FGQ 40 40 40 PFRATIOART2 252 255 182 VBG (Venous Blood Gas) Recent Labs 05/12/23 1557 05/12/23 1423 05/12/23 1105 LACTATEVEN 1.5 1.8 2.8* Mixed Venous Sat Recent Labs 05/12/23 1425 05/12/23 0508 05/12/23 0321 T1WBEH8 59.9 30.7 32.7 LFT's: Recent Labs 05/14/23 0110 05/13/23 0115 05/12/23 0600 BILITOT 0.4 0.5 0.9 BILIDIR -- 0.3 -- ALBUMIN 3.6 3.0* 3.5 ALKPHOS 86 85 100 ALT 437* 903* 1,174* AST 319* 792* 1,435* No results found for: UPROTCREAT No results found for: TPROTEINPEP, ALBELECT No results found for: MICROALBUR, PXQP78KWA No results found for: HA1C Lab Results Component Value Date CALCIUM 8.5 05/14/2023 PHOS 4.7 (H) 05/08/2023 No results found for: 25OHVITD MICROBIOLOGY: ProcedureComponentValueUnitsDate/TimeUrine culture [[id number]]Collected: 05/11/231921Lab Status: Final resultSpecimen: Clean Catch UrineUpdated: [...] consulted for assessment if this patient needs DIRECTOR OF PUBLIC RELATIONS. Atthis time, we can likely hold off on DIRECTOR OF PUBLIC RELATIONS. Her volume status appears sufficient and her metabolic kanwal angements with mild acidosis is not too profound. Patient does not have significant uremic symptoms. We can hold off for today, but the patient is a high risk candidate for needing DIRECTOR OF PUBLIC RELATIONS in future daysespecially if her Cr curve trends the direction it is for the next several days. S/p Encga-zi-Aqzrk TF TAVR: Management per cardiology. On milrinone gtt. PLAN: - Please obtain following diagnostics: renal US, urinalysis, urine prot/Cr ratio, urine albumin/Cr ratio, CK, uric acid, serum osmol, daily VBGs - No acute indications for DIRECTOR OF PUBLIC RELATIONS/dialysis. We will keep close eye on Cr trend, volume status, and metabolics to ensure patient still does not need DIRECTOR OF PUBLIC RELATIONS as she ensues intrinsic renal recovery - [...] M.H.A., M.A. PGY-V Nephrology-Hypertension Fellow Page # [phone] [facility] [address] 2nd floor, Interface Analyst [address] [place] [address] * Care Management - Mario Alberto Olmos [...] *No Product type* / Secondary Insurance: [facility] [place] Plan for discharge is: [...] CV at 0945. Was intubated in the senior label specialist due to agitation. Maintained bedrest for [...] Operative Note Patient Name: Purnima Thacker : [id number] MR#: [id number] Case Date: 05/12/2023 Surgeon: Surgeon(s) and Role: [...] procedure Note: Patient Name: Purnima Thacker : [id number] MR#: [id number] Case Date: 05/12/2023 Operators Surgeon: Surgeon(s) and [...] main with 4.0 x 30 mm Resolute Sawyer Drug Eluting Stent Perclose x1 + Angio-seal 8 Fr x1, RFA Manual pressure, LFA Manual pressure, LFV Endotracheal intubation (performed by cardiac anesthesia) Preliminary findings: Successful right transfemoral TAVR Dhzdi-sb-Mhdfd with a 23 mm Lai 3 THV. [...] MD, M.Sc. Structural Heart Disease Fellow Pager :[phone] Antelmo Sharma MD Pager [phone] * Op Note - Alirio Hudson MD - 05/12/2023 7:37 AM EDT Preop Diagnosis: Severe aortic stenosis, symptomatic. Postop Diagnosis: Same. Procedure: Transfemoral TAVR procedure with 23mm valve. Surgeon: Alirio Hudson M.D. [employer] Advisor: Danny CULP Procedure: The patient was taken to the senior label specialist. The patient had monitored anesthesia care. 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 [facility] [place] [address] [place] [address] STRUCTURAL HEART DISEASE CONSULTATION NOTE PRIMARY CARE [...] who had been referred for possible TAVR zsblq-fw-giuqs evaluation. Her primary symptoms are of dyspnea [...] [facility]. 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 [...] ejection fraction Mild coronary artery disease by [facility] 11/09/2022 Heart failure with reduced ejection [...] 500 mL infusion 0-5,000 Units/hr Intravenous Continuous Kluadia Reid MD 19 mL/hr at 05/10/23 1218 [...] Lactate, whole blood, send to lab ([facility]) Result Value Ref [...] leads Confirmed by MD Harshil, Enrique Bell ([id number]) on 05/10/2023 8:11:46 AM Assessment and Plan: [...] Antelmo Sharma MD Structural Heart Disease Pager [phone] * Plan of Care - Sarahi Nice RN - 05/10/2023 3:55 AM EDTSumcaydeny: RN Note and Care Plan Sarahi Nice RN assumed care of pt at time of their arrival to room 362 from [facility]. Pt voices shortness of breath [...] 180 days) Any patient receiving care in [place] must abide by [place] law. The hierarchy [...] Current DME: none Home Address confirmed as: [address] [place] [id number] Social & Family Supports: All names listed [...] Type: *No Product type* / Secondary Insurance: [employer]sync [facility] [place] ONLY if patient has Medicare A&B - Does this patient have secondary insurance?: Yes ; Prescription Coverage: Yes Preferred Pharmacy: updated to [facility] Status: Patient is a : No Primary Care Provider confirmed: Magdalena Acosta MD [phone] Patient/Caregiver Goals of Treatment: Potential Needs for [...] of a 2 story home with 2 [facility]. Patient is independent with ADL's [...] of care planning. Alie Bradshaw RN, CM Pager-[phone] * Plan of Care - Emily Lucero [...] EST Office Visit Hematology [place] [phone] Markel Borjas MD [facility] [place] [address] 11/02/2024 12:00 PM EDT Appointment [place] [phone] 11/02/2024 1:00 PM EDT Office [place] [address] Magdalena Peralta MD [facility] [place] [address] 03/01/2025 4:15 PM EDT Office Visit Dermatology at [address] [address] Marek Bonilla MD [address], [place] [address] Scheduled Referrals Name Type Priority Associated Diagnoses [...] Heart Cath W/Inj L Ventriculography, Img S&I ([id number]) 05/12/2023 7:37 AM EDT Aortic valve stenosis, [...] EST Narrative 07/08/2023 12:26 PM EST [address] [place] [address] ? Echocardiogram Report Name: PURNIMA THACKER ?Study Date: 07/08/2023 10:31 AMBP: 118/60 mmHg ? Patient Location: 4A : 1955 ? Height: 155 cm ? Account: [id number] Age: 67 yrs ? Weight: 74 kg [...] no significant change (post-procedure). Procedure Limited - 49174. Doppler - 48112. Color Doppler - 90996. Satisfactory quality. This study is limited because [...] Note Lee Kincaid MD - 07/08/2023 [address] [place] [address] Echocardiogram Report Name: PURNIMA THACKER Study Date: 310:31 AMBP: 118/60 mmHg Patient Location: 4A : 1955 Height: 155 cm Account: [id number] Age: 67 yrs Weight: 74 kg Gender: [...] is nosignificant change (post-procedure). Procedure Limited - 28955. Doppler - 15156. Color Doppler - 27575. Satisfactoryquality. This study is limited because of [...] Glucose 93 65 - 199 mg/dL [facility] Comment:Diabetes: >=200 mg/d L plus symptoms Blood Urea Nitrogen 19(H) 8 - 18 mg/dL [facility] Creatinine 0.81 0.70 - 1.20 mg/dL [facility] Sodium 142 135 - 145 mmol/L [facility] Potassium 3.8 3.5 - 5.0 mmol/L [facility] Comment: Please note: ??Patients with WBC >100,000 may have falsely elevated Potassium levels. ??For accurate Potassium quantification in these patients send serum separator tube (gold top) for subsequent determinations. ??Contact the Clinical Chemistry Laboratory if there are any questions. Chloride 104 98 - 107 mmol/L [facility] Carbon Dioxide 26 22 - 31 mmol/L [facility] Anion Gap 12 5 - 15 mmol/L [facility] Calcium 10.2 8.5 - 10.5 mg/dL [facility] Protein, Total 7.4 6.1 - 8.0 g/dL [facility] Albumin 4.1 3.2 - 5.2 g/dL [facility] Aspartate Aminotransferase 24 0 - 30 unit/L [facility] Alanine Aminotransferase 12 0 - 30 unit/L [facility] Alkaline Phosphatase 93 35 - 105 unit/L [facility] Bilirubin, Total 0.3 0.2 - 1.3 mg/dL [facility] Est Glomerular Filtration Rate 80 >=60 mL/min/1. 73 m?? [facility] Comment: This patient's estimated GFR [...] Lab Alirio Hudson MD CHEMISTRY ORDERABLE S [facility] [place] [address] * (ABNORMAL) Basic Metabolic Panel (non-fasting) (05/22/2023 3:57 AM EDT) Glucose 88 65 - 199 mg/dL [facility] Comment:Diabetes: >=200 mg/d L plus symptoms Blood Urea Nitrogen 21(H) 8 - 18 mg/dL [facility] Creatinine 0.69(L) 0.70 - 1.20 mg/dL [facility] Sodium 136 135 - 145 mmol/L [facility] Potassium 3.6 3.5 - 5.0 mmol/L [facility] Comment: Please note: ??Patients with WBC >100,000 may have falsely elevated Potassium levels. ??For accurate Potassium quantification in these patients send serum separator tube (gold top) for subsequent determinations. ??Contact the Clinical Chemistry Laboratory if there are any questions. Chloride 102 98 - 107 mmol/L [facility] Carbon Dioxide 23 22 - 31 mmol/L [facility] Anion Gap 11 5 - 15 mmol/L [facility] Calcium 8.6 8.5 - 10.5 mg/dL [facility] Est Glomerular Filtration Rate 95 >=60 mL/min/1. 73 m?? [facility] Comment: This patient's estimated GFR [...] Resulting Agency Comment Spec In Lab [place] [employer] AGENT CHEMISTRY ORDERABL ES [facility] [place] [address] * (ABNORMAL) Basic Metabolic Panel (non-fasting) (05/21/2023 5:06 AM EDT) Glucose 87 65 - 199 mg/dL [facility] Comment:Diabetes: >=200 mg/d L plus symptoms Blood Urea Nitrogen 25(H) 8 - 18 mg/dL [facility] Creatinine 0.84 0.70 - 1.20 mg/dL [facility] Sodium 136 135 - 145 mmol/L [facility] Potassium 3.6 3.5 - 5.0 mmol/L [facility] Comment: Please note: ??Patients with WBC >100,000 may have falsely elevated Potassium levels. ??For accurate Potassium quantification in these patients send serum separator tube (gold top) for subsequent determinations. ??Contact the Clinical Chemistry Laboratory if there are any questions. Chloride 102 98 - 107 mmol/L [facility] Carbon Dioxide 26 22 - 31 mmol/L [facility] Anion Gap 8 5 - 15 mmol/L [facility] Calcium 8.9 8.5 - 10.5 mg/dL [facility] Est Glomerular Filtration Rate 76 >=60 mL/min/1. 73 m?? [facility] Comment: This patient's estimated GFR [...] Resulting Agency Comment Spec In Lab [facility] [employer] CHEMISTRY ORDERABL ES Performing Organization Address [facility] Co de Phone Number [facility] [place] [address] * Lavender Tube HOLD (05/20/2023 2:52 AM EDT) Lavender Hold Sample in lab. [facility] Blood Venous Draw / Unknown 05/20/2023 2:52 AM EDT 05/20/2023 3:[address] [facility] [employer] HEMATOLOGY ORDERAB LES Performing Organization Address City/[facility]/ZIP Co de Phone Number [facility] [place] [address] * (ABNORMAL) Basic Metabolic Panel (non-fasting) (05/20/2023 2:52 AM EDT) Glucose 152 65 - 199 mg/dL [facility] Comment:Diabetes: >=200 mg/d L plus symptoms Blood Urea Nitrogen 33(H) 8 - 18 mg/dL [facility] Creatinine 0.82 0.70 - 1.20 mg/dL [facility] Sodium 137 135 - 145 mmol/L [facility] Potassium 3.7 3.5 - 5.0 mmol/L [facility] Comment: Please note: ??Patients with WBC >100,000 may have falsely elevated Potassium levels. ??For accurate Potassium quantification in these patients send serum separator tube (gold top) for subsequent determinations. ??Contact the Clinical Chemistry Laboratory if there are any questions. Chloride 99 98 - 107 mmol/L [facility] Carbon Dioxide 22 22 - 31 mmol/L [facility] Anion Gap 16(H) 5 - 15 mmol/L [facility] Calcium 9.0 8.5 - 10.5 mg/dL [facility] Est Glomerular Filtration Rate 78 >=60 mL/min/1. 73 m?? [facility] Comment: This patient's estimated GFR [...] Agency Comment Spec In Lab Mara Serrano [employer] CHEMISTRY ORDERABL ES [facility] [place] [address] * (ABNORMAL) Potassium (05/20/2023 2:52 AM EDT) Potassium 3.4(L) 3.5 - 5.0 mmol/L [facility] Comment: Please note: ??Patients with WBC >100,000 may have falsely elevated Potassium levels. ??For accurate Potassium quantification in these patients send serum separator tube (gold top) for subsequent determinations. ??Contact the Clinical Chemistry Laboratory if there are any questions. Blood 05/20/2023 2:52 AM EDT 05/20/2023 3:03 AM EDT Narrative Resulting Agency Comment Spec In Lab Mara Serrano [employer] CHEMISTRY ORDERABL ES [facility] [place] [address] * XR Chest PA & Lateral (Generic) [...] questions please contact the health critical care specialist that requested your imaging first. [...] have questions please contactthe health critical care specialist that requested your imaging first. Alirio Hudson MD IMG DX ORDERABLES * (ABNORMAL) Basic Metabolic Panel (non-fasting) (05/19/2023 5:49 AM EDT) Glucose 93 65 - 199 mg/dL [facility] Comment:Diabetes: >=200 mg/d L plus symptoms Blood Urea Nitrogen 45(H) 8 - 18 mg/dL [facility] Creatinine 1.02 0.70 - 1.20 mg/dL [facility] Sodium 138 135 - 145 mmol/L [facility] Potassium 3.9 3.5 - 5.0 mmol/L [facility] Comment: Please note: ??Patients with WBC >100,000 may have falsely elevated Potassium levels. ??For accurate Potassium quantification in these patients send serum separator tube (gold top) for subsequent determinations. ??Contact the Clinical Chemistry Laboratory if there are any questions. Chloride 102 98 - 107 mmol/L [facility] Carbon Dioxide 26 22 - 31 mmol/L [facility] Anion Gap 10 5 - 15 mmol/L [facility] Calcium 9.7 8.5 - 10.5 mg/dL [facility] Est Glomerular Filtration Rate 60 >=60 mL/min/1. 73 m?? [facility] Comment: This patient's estimated GFR [...] Agency Comment Spec In Lab Mara Serrano [employer] CHEMISTRY ORDERABL ES [facility] [place] [address] * IR Chest Tube Placement Right (05/18/2023 [...] Kristopher Salgado MD 05/18/2023 Alirio Hudson MD [facility] [place] ORDERABLES * (ABNORMAL) Basic Metabolic Panel (non-fasting) (05/18/2023 2:54 AM EDT) Glucose 95 65 - 199 mg/dL [facility] Comment:Diabetes: >=200 mg/d L plus symptoms Blood Urea Nitrogen 71(H) 8 - 18 mg/dL [facility] Comment:result rechecked-[facility] Creatinine 1.64(H) 0.70 - 1.20 mg/dL [facility] Comment:result rechecked-[facility] Sodium 137 135 - 145 mmol/L [facility] Potassium 3.7 3.5 - 5.0 mmol/L [facility] Comment: Please note: ??Patients with WBC >100,000 may have falsely elevated Potassium levels. ??For accurate Potassium quantification in these patients send serum separator tube (gold top) for subsequent determinations. ??Contact the Clinical Chemistry Laboratory if there are any questions. Chloride 100 98 - 107 mmol/L [facility] Carbon Dioxide 24 22 - 31 mmol/L [facility] Anion Gap 13 5 - 15 mmol/L [facility] Calcium 9.7 8.5 - 10.5 mg/dL [facility] Est Glomerular Filtration Rate 34(L) >=60 mL/min/1. 73 m?? [facility] Comment: This patient's estimated GFR [...] Agency Comment Spec In Lab Mara Maggie [employer] CHEMI[employer]Y ORDERABL ES [facility] [place] [address] * XR Chest PA & Lateral (Generic) [...] questions please contact the health critical care specialist that requested your imaging first. ? Electronically signed by: Ghassan Reyes MD, [facility] ??([phone]), at 05/17/2023 11:46 AM Narrative 05/17/2023 11:46 [...] have questions please contactthe health critical care specialist that requested your imaging first. Electronically signed by: Ghassan Reyes MD, [facility]([phone]), at 05/17/2023 11:46 AM Alirio Hudson MD IMG DX ORDERABLES * (ABNORMAL) Comprehensive metabolic panel (non-fasting) (05/17/2023 4:35 AM EDT) Glucose 89 65 - 199 mg/dL [facility] Comment:Diabetes: >=200 mg/d L plus symptoms Blood Urea Nitrogen 97(H) 8 - 18 mg/dL [facility] Creatinine 2.97(H) 0.70 - 1.20 mg/dL [facility] Comment:result rechecked-JSJ Sodium 135 135 - 145 mmol/L [facility] Potassium 4.1 3.5 - 5.0 mmol/L [facility] Comment: Please note: ??Patients with WBC >100,000 may have falsely elevated Potassium levels. ??For accurate Potassium quantification in these patients send serum separator tube (gold top) for subsequent determinations. ??Contact the Clinical Chemistry Laboratory if there are any questions. Chloride 97(L) 98 - 107 mmol/L [facility] Carbon Dioxide 22 22 - 31 mmol/L [facility] Anion Gap 16(H) 5 - 15 mmol/L [facility] Calcium 9.6 8.5 - 10.5 mg/dL [facility] Protein, Total 6.5 6.1 - 8.0 g/dL [facility] Albumin 3.7 3.2 - 5.2 g/dL [facility] Aspartate Aminotransferase 58(H) 0 - 30 unit/L [facility] Alanine Aminotransferase 66(H) 0 - 30 unit/L [facility] Alkaline Phosphatase 86 35 - 105 unit/L [facility] Bilirubin, Total 0.6 0.2 - 1.3 mg/dL [facility] Est Glomerular Filtration Rate 17(L) >=60 mL/min/1. 73 m?? [facility] Comment: This patient's estimated GFR [...] S Performing Organization Address [facility] Co de Phone Number [facility] [place] [address] * Potassium (05/16/2023 11:15 PM EDT) Potassium 3.7 3.5 - 5.0 mmol/L [facility] Comment: Please note: ??Patients with [...] S Performing Organization Address [facility] Co de Phone Number [facility] [place] [address] * Magnesium (05/16/2023 5:22 PM EDT) Pathologist [facility] Magnesium 0.96 0.69 - 1.07 mmol/L [facility] Blood 05/16/2023 5:22 PM EDT 05/16/2023 5:27 PM EDT Narrative Resulting Agency Comment Spec In Lab Alirio Hudson MD CHEMISTRY ORDERABLE S Performing Organization Address [facility] Co de Phone Number [facility] [place] [address] * (ABNORMAL) Basic Metabolic Panel (non-fasting) (05/16/2023 5:22 PM EDT) Glucose 106 65 - 199 mg/dL [facility] Comment:Diabetes: >=200 mg/d L plus symptoms Blood Urea Nitrogen 103(H) 8 - 18 mg/dL [facility] Creatinine 3.91(H) 0.70 - 1.20 mg/dL [facility] Comment:result rechecked-imm Sodium 132(L) 135 - 145 mmol/L [facility] Potassium 3.6 3.5 - 5.0 mmol/L [facility] Comment: Please note: ??Patients with WBC >100,000 may have falsely elevated Potassium levels. ??For accurate Potassium quantification in these patients send serum separator tube (gold top) for subsequent determinations. ??Contact the Clinical Chemistry Laboratory if there are any questions. Chloride 92(L) 98 - 107 mmol/L [facility] Carbon Dioxide 22 22 - 31 mmol/L [facility] Anion Gap 18(H) 5 - 15 mmol/L [facility] Calcium 9.7 8.5 - 10.5 mg/dL [facility] Est Glomerular Filtration Rate 12(L) >=60 mL/min/1. 73 m?? [facility] Comment: This patient's estimated GFR [...] Lab Alirio Hudson MD CHEMISTRY ORDERABLE S [facility] [place] [address] * (ABNORMAL) Potassium (05/16/2023 11:43 AM EDT) Potassium 3.3(L) 3.5 - 5.0 mmol/L [facility] Comment: Please note: ??Patients with [...] Lab Alirio Hudson MD CHEMISTRY ORDERABLE S [facility] [place] [address] * (ABNORMAL) Ferritin (05/16/2023 4:41 AM EDT) Pathologist [facility] Ferritin 1,813(H) 30 - 400 ng/mL [facility] Comment: Pediatric reference ranges not [place] [facility] [place] interpret with caution. Reference ranges for females greater than 50 years of age approach values for men, i.e., 30-400 ng/mL. Blood 05/16/2023 4:41 AM EDT 05/16/2023 4:54 AM EDT Narrative Resulting Agency Comment Spec In Lab Kristopher Ayoub MD CHEMISTRY ORDERABLES [facility] [place] [address] * (ABNORMAL) PTH (05/16/2023 4:41 AM EDT) [facility] Parathyroid Hormone 120(H) 15 - 65 pg/mL [facility] Blood 05/16/2023 4:41 AM EDT 05/16/2023 4:54 AM EDT Narrative Resulting Agency Comment Spec In Lab Kristopher Ayoub MD CHEMISTRY ORDERABLES [facility] [place] [address] * Vitamin D, 25-Hydroxy (05/16/2023 4:41 AM EDT) [facility] Vitamin D Total 25 OH 33 21 - 100 ng/mL [facility] Vit D Interp Sufficient [facility] Blood 05/16/2023 4:41 AM EDT 05/16/2023 4:54 AM EDT Narrative Resulting Agency Comment Spec In Lab Kristopher Ayoub MD CHEMISTRY ORDERABLES [facility] [place] [address] * (ABNORMAL) Blood Gas Venous ([facility]) (05/16/2023 4:22 AM EDT) pH, Venous 7.41 7.32 - 7.42 [facility] PCO2, Venous 32(L) 41 - 51 mmHg [facility] PO2, Venous 73(H) 25 - 40 mmHg [facility] Bicarbonate, Venous 19.6 mmol/L [facility] Base Excess, Venous -5.1 mmol/L [facility] Hgb Blood Gas 9.7(L) 11.7 - 15.5 g/dL [facility] Oxyhemoglobin, Venous 92.8 % [facility] Carboxyhemoglob in, Venous 0.1 % [facility] Comment: Nonsmokers: 0.5-1.5% COHB Smokers: Variable, but usually less than 10% Toxic: 20-30% COHB Lethal: Greater than 60% COHB Methemoglobin, Venous 0.3 <=1.5 % [facility] Na Whole Blood 130(L) 135 - 145 mmol/L [facility] K Whole Blood 3.7 3.5 - 5.0 mmol/L [facility] Comment: Please note: Patients with WBC >100,000 may have falsely elevated Potassium levels. Contact the Clinical Chemistry Laboratory if there are any questions. ICa Whole Blood 1.15 1.15 - 1.33 mmol/L [facility] Comment: Note: ??Total bilirubin higher than 20 mg/dL may lead to falsely low ionized calcium. CL Whole Blood 95(L) 98 - 107 mmol/L [facility] Gluc Whole Bld 82 65 - 199 mg/dL [facility] Comment:Diabetes: >=200 mg/d L plus symptoms Lactate WB 1.1 0.5 - 2.2 mmol/L [facility] Blood Gas Source Venous [facility] Blood Venous Draw / Unknown 05/16/2023 4:22 AM EDT 05/16/2023 4:31 AM EDT Narrative Resulting Agency Comment Spec In Lab Bonita TOBAR CHEMISTRY ORDERABLES [facility] [place] [address] * (ABNORMAL) Differential, Automated (05/16/2023 4:20 AM EDT) Neutrophil % 84.1 % [facility] Neutrophil Absolute 6.22(H) 1.70 - 6.10 x10(3)/mc L [facility] Lymph % 5.8 % [facility] Lymphocytes Abs 0.4(L) 0.9 - 3.2 x10(3)/mc L [facility] Monocyte % 8.8 % [facility] Monocyte Abs 0.6 0.3 - 0.9 x10(3)/mc L [facility] Eos % 0.4 % [facility] Eosinophils Abs 0.0 0.0 - 0.4 x10(3)/mc L [facility] Basophil % 0.0 % [facility] Baso Absolute 0.0 0.0 - 0.1 x10(3)/mc L [facility] Immature Gran % 0.90 % [facility] Comment: Immature granulocytes(IG's)percentage and absolute count will include metamyelocytes, myelocytes, and promyelocytes. Blood smears from CBCs yielding IG's will be scanned manually for concordance. If this scan disagrees with the automated IG or if promyelocytes are noted, a manual differential will be performed. Immature Gran Absolute 0.07(H) 0.00 - 0.04 x10(3)/mc L [facility] Blood 05/16/2023 4:20 AM EDT 05/16/2023 4:29 AM EDT Narrative Resulting Agency Comment Spec In Lab James Agustin MD HEMATOLOGY ORDER JODIE Performing Organization Address City/[facility]/ZIP Co de Phone Number [facility] [place] [address] * (ABNORMAL) Hemogram (05/16/2023 4:20 AM EDT) White Blood Cell 7.4 4.0 - 9.5 x10(3)/mc L [facility] Red Blood Cell 2.40(L) 4.00 - 5.21 x10(6)/mc L [facility] Hemoglobin 7.8(L) 11.7 - 15.5 g/dL [facility] Hematocrit 22.5(L) 35.7 - 45.8 % [facility] Mean Cell Volume 93.8 82.6 - 94.4 fL [facility] Mean Cell Hemoglobin 32.5(H) 27.1 - 32.0 pg [facility] Mean Cell Hemoglobin Concentration 34.7 31.7 - 35.0 g/dL [facility] Platelet 120(L) 145 - 357 x10(3)/mc L [facility] RDW Standard Deviation 42.9 37.0 - 46.0 fL [facility] RDW coefficient of variation 12.9 11.5 - 14.1 % [facility] Mean Platelet Volume 11.3 7.6 - 12.9 fL [facility] NRBC% auto 0.7 % [facility] NRBC Absolute 0.050(H) 0.000 - 0.000 x10(3)/ L [facility] Blood 05/16/2023 4:20 AM EDT 05/16/2023 4:29 AM EDT Narrative Resulting Agency Comment Spec In Lab James Agustin MD HEMATOLOGY ORDER JODIE [facility] [place] [address] * (ABNORMAL) Basic Metabolic Panel (non-fasting) (05/16/2023 4:20 AM EDT) Glucose 89 65 - 199 mg/dL [facility] Comment:Diabetes: >=200 mg/d L plus symptoms Blood Urea Nitrogen 108(H) 8 - 18 mg/dL [facility] Creatinine 4.74(H) 0.70 - 1.20 mg/dL [facility] Comment:result rechecked-OLIVA Sodium 132(L) 135 - 145 mmol/L [facility] Potassium 3.9 3.5 - 5.0 mmol/L [facility] Comment: Please note: ??Patients with WBC >100,000 may have falsely elevated Potassium levels. ??For accurate Potassium quantification in these patients send serum separator tube (gold top) for subsequent determinations. ??Contact the Clinical Chemistry Laboratory if there are any questions. Chloride 95(L) 98 - 107 mmol/L [facility] Carbon Dioxide 18(L) 22 - 31 mmol/L [facility] Anion Gap 19(H) 5 - 15 mmol/L [facility] Calcium 9.2 8.5 - 10.5 mg/dL [facility] Est Glomerular Filtration Rate 10(L) >=60 mL/min/1. 73 m?? [facility] Comment: This patient's estimated GFR [...] Lab Alirio Hudson MD CHEMISTRY ORDERABLE S [facility] [place] [address] * (ABNORMAL) Iron and TIBC (05/16/2023 4:20 AM EDT) Iron 31 30 - 150 mcg/dL [facility] TIBC 259 250 - 450 mcg/dL [facility] Iron Saturation 12(L) 20 - 50 % [facility] Blood 05/16/2023 4:20 AM EDT 05/16/2023 4:29 AM EDT Narrative Resulting Agency Comment Spec In Lab Kristopher Ayoub MD CHEMISTRY ORDERABLES [facility] [place] [address] * (ABNORMAL) Basic Metabolic Panel (non-fasting) (05/15/2023 12:50 AM EDT) Glucose 101 65 - 199 mg/dL [facility] Comment:Diabetes: >=200 mg/d L plus symptoms Blood Urea Nitrogen 109(H) 8 - 18 mg/dL [facility] Creatinine 5.62(H) 0.70 - 1.20 mg/dL [facility] Comment:result rechecked-[place] Sodium 131(L) 135 - 145 mmol/L [facility] Comment:result rechecked-[place] Potassium 3.7 3.5 - 5.0 mmol/L [facility] Comment: result rechecked-[place] Please note: ??Patients with WBC >100,000 may have falsely elevated Potassium levels. ??For accurate Potassium quantification in these patients send serum separator tube (gold top) for subsequent determinations. ??Contact the Clinical Chemistry Laboratory if there are any questions. Chloride 92(L) 98 - 107 mmol/L [facility] Comment:result rechecked-[place] Carbon Dioxide 18(L) 22 - 31 mmol/L [facility] Comment:result rechecked-[place] Anion Gap 21(H) 5 - 15 mmol/L [facility] Calcium 8.9 8.5 - 10.5 mg/dL [facility] Est Glomerular Filtration Rate 8(L) >=60 mL/min/1. 73 m?? [facility] Comment: This patient's estimated GFR [...] MD CHEMISTRY ORDERABLE S Performing Organization Address City/[facility]/ZIP Co de Phone Number [facility] [place] [address] * (ABNORMAL) Hemogram (05/15/2023 12:50 AM EDT) White Blood Cell 9.1 4.0 - 9.5 x10(3)/mc L [facility] Red Blood Cell 2.19(L) 4.00 - 5.21 x10(6)/mc L [facility] Hemoglobin 7.2(L) 11.7 - 15.5 g/dL [facility] Hematocrit 20.6(L) 35.7 - 45.8 % [facility] Mean Cell Volume 94.1 82.6 - 94.4 fL [facility] Mean Cell Hemoglobin 32.9(H) 27.1 - 32.0 pg [facility] Mean Cell Hemoglobin Concentration 35.0 31.7 - 35.0 g/dL [facility] Platelet 109(L) 145 - 357 x10(3)/mc L [facility] RDW Standard Deviation 43.6 37.0 - 46.0 fL [facility] RDW coefficient of variation 12.9 11.5 - 14.1 % [facility] Mean Platelet Volume 10.4 7.6 - 12.9 fL [facility] NRBC% auto 2.1 % [facility] NRBC Absolute 0.190(H) 0.000 - 0.000 x10(3)/mc L [facility] Blood 05/15/2023 12:5 0 AM EDT 05/15/2023 12:52 AM EDT Narrative Resulting Agency Comment Spec In Lab Alirio Hudson MD HEMATOLOGY ORDERABL ES Performing Organization Address [facility] Co de Phone Number [facility] [place] [address] * (ABNORMAL) BLOOD GAS 2 VENOUS (05/15/2023 12:49 AM EDT) pH, Venous 7.33 7.32 - 7.42 [facility] PCO2, Venous 37(L) 41 - 51 mmHg [facility] PO2, Venous 34 25 - 40 mmHg [facility] Bicarbonate, Venous 19.1 mmol/L [facility] Base Excess, Venous -6.8 mmol/L [facility] Hgb Blood Gas 10.8(L) 11.7 - 15.5 g/dL [facility] Oxyhemoglobin, Venous 58.1 % [facility] Carboxyhemoglob in, Venous 0.3 % [facility] Comment: Nonsmokers: 0.5-1.5% COHB Smokers: Variable, but usually less than 10% Toxic: 20-30% COHB Lethal: Greater than 60% COHB Methemoglobin, Venous 0.6 <=1.5 % [facility] Na Whole Blood 136 135 - 145 mmol/L [facility] K Whole Blood 3.7 3.5 - 5.0 mmol/L [facility] Comment: Please note: Patients with WBC >100,000 may have falsely elevated Potassium levels. Contact the Clinical Chemistry Laboratory if there are any questions. ICa Whole Blood 1.12(L) 1.15 - 1.33 mmol/L [facility] Comment: Note: ??Total bilirubin higher than 20 mg/dL may lead to falsely low ionized calcium. CL Whole Blood 95(L) 98 - 107 mmol/L [facility] Gluc Whole Bld 101 65 - 199 mg/dL [facility] Comment:Diabetes: >=200 mg/d L plus symptoms Lactate WB 1.3 0.5 - 2.2 mmol/L [facility] Flow, Mike 1.0 LPM [facility] Blood Gas Source Venous [facility] Blood 05/15/2023 12:4 9 AM EDT 05/15/2023 12:49 AM EDT Alirio Hudson MD POINT OF CARE TEST ORDERABLES [facility] [address] [place] [address] * US Retroperitoneal Complete (05/14/2023 3:53 PM [...] Robledo MD, [facility] ([phone]), at 05/14/2023 4:32 PM Thank you for letting us participate in the care of this patient. If you are a health care provider and have any questions regarding this report, please contact the number above. For patients who have questions, please contact the health critical care specialist that requested your imaging first. ? Hayden Robledo, Staff Physician Electronically Signed Final Report ?? 05/14/2023 04:39 pm Narrative 05/14/2023 4:39 PM EDT Renal ? (Signed Final 05/14/2023 04:39 pm) PATIENT INFO: ID #: ? [id number] ?: ??55 (67 yrs)(F) Name: ? PURNIMA Magalie KIRSTIE ?Visit Date: 05/14/2023 03:44 pm PERFORMED BY: Attending: ?Meena CULP, Hayden Stafford Resident: ? Barnacle MD, Anand D. Performed By: ? Lula RDMS, Consuelo Referred By: ?ALIRIO HUDSON Location: ? [place] SERVICE(S) PROVIDED: URETRO - Retroperitoneal Complete - [id number] ? [id number] INDICATIONS: [facility] COMPARISON: CT: Abdomen/Pelvis 05/11/23 RIGHT [...] 05/14/2023 04:39 pm) PATIENT INFO: ID #: [id number] : 55 (67 yrs)(F) Name: PURNIMA THACKER Visit Date: 05/14/2023 03:44 pm PERFORMED BY: Attending: Hayden Robledo MD Resident: Anand Camejo MD Performed By: Consuelo Tello RDMS Referred By: ALIRIO HUDSON Location: [place] SERVICE(S) PROVIDED: URETRO - Retroperitoneal Complete - [id number] INDICATIONS: EVANS COMPARISON: CT: Abdomen/Pelvis 05/11/23 RIGHT [...] Robledo MD, [facility] ([phone]), at 05/14/2023 4:32 PM Thank you for letting us participate in the care of this patient. If you are a health care provider and have any questions regarding this report, please contact the number above. For patients who have questions, please contact the health critical care specialist that requested your imaging first. Hayden Robledo, Staff Physician Electronically Signed Final Report 05/14/2023 04:39 pm Alirio Hudson MD IMG US GEN ORDERABL ES * CK (05/14/2023 3:17 PM EDT) Creatine Kinase 123 0 - 160 unit/L [facility] Blood 05/14/2023 3:17 PM EDT 05/14/2023 3:31 PM EDT Narrative Resulting Agency Comment Spec In Lab Alirio Hudson MD CHEMISTRY ORDERABLE S Performing Organization Address [facility] Co de Phone Number [facility] [place] [address] * (ABNORMAL) Uric acid (05/14/2023 3:17 PM EDT) Uric Acid 14.9(H) 2.5 - 6.5 mg/dL [facility] Blood 05/14/2023 3:17 PM EDT 05/14/2023 3:31 PM EDT Narrative Resulting Agency Comment Spec In Lab Alirio Hudson MD CHEMISTRY ORDERABLE S Performing Organization Address [facility] Co de Phone Number [facility] [place] [address] * (ABNORMAL) Osmolality (05/14/2023 3:17 PM EDT) Osmolality 311(H) 275 - 295 mOsm/kg [facility] Blood 05/14/2023 3:17 PM EDT 05/14/2023 3:31 PM EDT Narrative Resulting Agency Comment Spec In Lab Alirio Hudson MD CHEMISTRY ORDERABLE S [facility] [place] [address] * (ABNORMAL) Differential, Automated (05/14/2023 1:10 AM EDT) Neutrophil % 87.2 % [facility] Neutrophil Absolute 9.74(H) 1.70 - 6.10 x10(3)/mc L [facility] Lymph % 3.9 % [facility] Lymphocytes Abs 0.4(L) 0.9 - 3.2 x10(3)/mc L [facility] Monocyte % 7.9 % [facility] Monocyte Abs 0.9 0.3 - 0.9 x10(3)/mc L [facility] Eos % 0.0 % [facility] Eosinophils Abs 0.0 0.0 - 0.4 x10(3)/mc L [facility] Basophil % 0.1 % [facility] Baso Absolute 0.0 0.0 - 0.1 x10(3)/mc L [facility] Immature Gran % 0.90 % [facility] Comment: Immature granulocytes(IG's)percentage and absolute count will include metamyelocytes, myelocytes, and promyelocytes. Blood smears from CBCs yielding IG's will be scanned manually for concordance. If this scan disagrees with the automated IG or if promyelocytes are noted, a manual differential will be performed. Immature Gran Absolute 0.10(H) 0.00 - 0.04 x10(3)/mc L [facility] Blood 05/14/2023 1:10 AM EDT 05/14/2023 1:24 AM EDT Narrative Resulting Agency Comment Spec In Lab Bonita TOBAR HEMATOLOGY ORDERABLE S [facility] [place] [address] * (ABNORMAL) Hemogram (05/14/2023 1:10 AM EDT) White Blood Cell 11.2(H) 4.0 - 9.5 x10(3)/mc L [facility] Red Blood Cell 2.19(L) 4.00 - 5.21 x10(6)/mc L [facility] Hemoglobin 7.2(L) 11.7 - 15.5 g/dL [facility] Hematocrit 20.3(L) 35.7 - 45.8 % [facility] Mean Cell Volume 92.7 82.6 - 94.4 fL [facility] Mean Cell Hemoglobin 32.9(H) 27.1 - 32.0 pg [facility] Mean Cell Hemoglobin Concentration 35.5(H) 31.7 - 35.0 g/dL [facility] Platelet 112(L) 145 - 357 x10(3)/mc L [facility] RDW Standard Deviation 41.4 37.0 - 46.0 fL [facility] RDW coefficient of variation 12.5 11.5 - 14.1 % [facility] Mean Platelet Volume 10.4 7.6 - 12.9 fL [facility] NRBC% auto 1.5 % [facility] NRBC Absolute 0.170(H) 0.000 - 0.000 x10(3)/mc L [facility] Blood 05/14/2023 1:10 AM EDT 05/14/2023 1:24 AM EDT Narrative Resulting Agency Comment Spec In Lab Bonita TOBAR HEMATOLOGY ORDERABLE S [facility] [place] [address] * (ABNORMAL) Comprehensive metabolic panel (non-fasting) (05/14/2023 1:10 AM EDT) Glucose 120 65 - 199 mg/dL [facility] Comment:Diabetes: >=200 mg/d L plus symptoms Blood Urea Nitrogen 98(H) 8 - 18 mg/dL [facility] Creatinine 4.80(H) 0.70 - 1.20 mg/dL [facility] Comment:result rechecked-ssc Sodium 132(L) 135 - 145 mmol/L [facility] Potassium 4.1 3.5 - 5.0 mmol/L [facility] Comment: Please note: ??Patients with WBC >100,000 may have falsely elevated Potassium levels. ??For accurate Potassium quantification in these patients send serum separator tube (gold top) for subsequent determinations. ??Contact the Clinical Chemistry Laboratory if there are any questions. Chloride 94(L) 98 - 107 mmol/L [facility] Carbon Dioxide 18(L) 22 - 31 mmol/L [facility] Anion Gap 20(H) 5 - 15 mmol/L [facility] Calcium 8.5 8.5 - 10.5 mg/dL [facility] Protein, Total 5.8(L) 6.1 - 8.0 g/dL [facility] Albumin 3.6 3.2 - 5.2 g/dL [facility] Aspartate Aminotransferase 319(H) 0 - 30 unit/L [facility] Alanine Aminotransferase 437(H) 0 - 30 unit/L [facility] Alkaline Phosphatase 86 35 - 105 unit/L [facility] Bilirubin, Total 0.4 0.2 - 1.3 mg/dL [facility] Est Glomerular Filtration Rate 9(L) >=60 mL/min/1. 73 m?? [facility] Comment: This patient's estimated GFR [...] S Performing Organization Address [facility] Co de Phone Number [facility] [place] [address] * APTT (05/13/2023 10:15 AM EDT) Partial Thromboplastin Time 27 25 - 37 sec [facility] Comment: The PTT is NOT appropriate for heparin monitoring. Use the Anti-Xa level for heparin monitoring (HEP UFH) or LMWH monitoring (HEP LMW). A PTT less than 37 seconds generally indicates adequate hemostasis. Blood 05/13/2023 10:1 5 AM EDT 05/13/2023 10:46 AM EDT Narrative Resulting Agency Comment Spec In Lab Alirio Hudson MD HEMATOLOGY ORDERABL ES Performing Organization Address [facility] Co de Phone Number [facility] [place] [address] * (ABNORMAL) Prothrombin Time (05/13/2023 10:15 AM EDT) Prothrombin Time 14.6(H) 9.4 - 12.5 sec [facility] International Normalization Ratio 1.3 [facility] Comment: An INR <2.0 indicates [...] ES Performing Organization Address [facility] Co de Phone Number [facility] [place] [address] * EKG 12 Lead (05/13/2023 9:22 AM EDT) Ventricular rate 92 BPM MUSE SYSTEM Atrial Rate 92 BPM MUSE SYSTEM P-R Interval 140 ms MUSE SYSTEM QRS Duration 104 ms MUSE SYSTEM Q-T Interval 384 ms MUSE SYSTEM QTC Calculated (Bezet) 474 ms MUSE SYSTEM Calculated P [place] 33 degrees MUSE SYSTEM Calculated R [place] 41 degrees MUSE SYSTEM Calculated T [place] -35 degrees MUSE SYSTEM INTERPRETATION Sinus rhythm with frequent Premature ventricular complexes Septal infarct , age undetermined ST & T wave abnormality, consider lateral ischemia Abnormal ECG When compared with ECG of 12-MAY-2023 10:10, Premature ventricular complexes are now Present I personally reviewed the tracing and edited the fellows interpretation Confirmed by fellow MD Anitha, Carissa ([id number]) on 05/13/2023 3:25:30 PM Confirmed by Maxx Best ([id number]) on 05/13/2023 8:30:56 PM MUSE SYSTEM 05/13/2023 9:22 AM EDT 05/13/2023 8:30 PM EDT Alirio Hudson MD ECG ORDERABLES MUSE SYSTEM * (ABNORMAL) Differential, Automated (05/13/2023 1:15 AM EDT) Neutrophil % 88.1 % [facility] Neutrophil Absolute 7.62(H) 1.70 - 6.10 x10(3)/mc L [facility] Lymph % 3.1 % [facility] Lymphocytes Abs 0.3(L) 0.9 - 3.2 x10(3)/mc L [facility] Monocyte % 7.9 % [facility] Monocyte Abs 0.7 0.3 - 0.9 x10(3)/mc L [facility] Eos % 0.0 % [facility] Eosinophils Abs 0.0 0.0 - 0.4 x10(3)/mc L [facility] Basophil % 0.1 % [facility] Baso Absolute 0.0 0.0 - 0.1 x10(3)/mc L [facility] Immature Gran % 0.80 % [facility] Comment: Immature granulocytes(IG's)percentage and absolute count will include metamyelocytes, myelocytes, and promyelocytes. Blood smears from CBCs yielding IG's will be scanned manually for concordance. If this scan disagrees with the automated IG or if promyelocytes are noted, a manual differential will be performed. Immature Gran Absolute 0.07(H) 0.00 - 0.04 x10(3)/mc L [facility] Blood 05/13/2023 1:15 AM EDT 05/13/2023 1:29 AM EDT Narrative Resulting Agency Comment Spec In Lab Lorri TOBAR HEMATOLOGY ORDERABLE S [facility] [place] [address] * (ABNORMAL) Hemogram (05/13/2023 1:15 AM EDT) White Blood Cell 8.6 4.0 - 9.5 x10(3)/mc L [facility] Red Blood Cell 2.37(L) 4.00 - 5.21 x10(6)/mc L [facility] Hemoglobin 7.8(L) 11.7 - 15.5 g/dL [facility] Hematocrit 22.2(L) 35.7 - 45.8 % [facility] Mean Cell Volume 93.7 82.6 - 94.4 fL [facility] Mean Cell Hemoglobin 32.9(H) 27.1 - 32.0 pg [facility] Mean Cell Hemoglobin Concentration 35.1(H) 31.7 - 35.0 g/dL [facility] Platelet 130(L) 145 - 357 x10(3)/mc L [facility] RDW Standard Deviation 41.7 37.0 - 46.0 fL [facility] RDW coefficient of variation 12.5 11.5 - 14.1 % [facility] Mean Platelet Volume 10.2 7.6 - 12.9 fL [facility] NRBC% auto 0.5 % [facility] NRBC Absolute 0.040(H) 0.000 - 0.000 x10(3)/mc L [facility] Blood 05/13/2023 1:15 AM EDT 05/13/2023 1:29 AM EDT Narrative Resulting Agency Comment Spec In Lab Lorri TOBAR HEMATOLOGY ORDERABLE S Performing Organization Address City/[facility]/ZIP Co de Phone Number [facility] [place] [address] * (ABNORMAL) Hepatic Function Panel (05/13/2023 1:15 AM EDT) Protein, Total 5.5(L) 6.1 - 8.0 g/dL [facility] Albumin 3.0(L) 3.2 - 5.2 g/dL [facility] Aspartate Aminotransferase 792(H) 0 - 30 unit/L [facility] Alanine Aminotransferase 903(H) 0 - 30 unit/L [facility] Alkaline Phosphatase 85 35 - 105 unit/L [facility] Bilirubin, Total 0.5 0.2 - 1.3 mg/dL [facility] Bilirubin, Direct 0.3 0.0 - 0.3 mg/dL [facility] Blood 05/13/2023 1:15 AM EDT 05/13/2023 1:29 AM EDT Narrative Resulting Agency Comment Spec In Lab Alirio Hudson MD CHEMISTRY ORDERABLE S Performing Organization Address [facility] Co de Phone Number [facility] [place] [address] * (ABNORMAL) Basic Metabolic Panel (non-fasting) (05/13/2023 1:15 AM EDT) Pathologist [facility] Glucose 107 65 - 199 mg/dL [facility] Comment:Diabetes: >=200 mg/d L plus symptoms Blood Urea Nitrogen 82(H) 8 - 18 mg/dL [facility] Creatinine 3.15(H) 0.70 - 1.20 mg/dL [facility] Comment:result rechecked-OG Sodium 132(L) 135 - 145 mmol/L [facility] Potassium 3.8 3.5 - 5.0 mmol/L [facility] Comment: Please note: ??Patients with WBC >100,000 may have falsely elevated Potassium levels. ??For accurate Potassium quantification in these patients send serum separator tube (gold top) for subsequent determinations. ??Contact the Clinical Chemistry Laboratory if there are any questions. Chloride 95(L) 98 - 107 mmol/L [facility] Carbon Dioxide 20(L) 22 - 31 mmol/L [facility] Anion Gap 17(H) 5 - 15 mmol/L [facility] Calcium 8.3(L) 8.5 - 10.5 mg/dL [facility] Est Glomerular Filtration Rate 16(L) >=60 mL/min/1. 73 m?? [facility] Comment: This patient's estimated GFR [...] City/State/[facility] Co de Phone Number [facility] [place] [address] * (ABNORMAL) BLOOD GAS 2 ARTERIAL (05/12/2023 3:57 PM EDT) pH, Arterial 7.39 7.35 - 7.45 [facility] PCO2, Arterial 33(L) 35 - 45 mmHg [facility] PO2, Arterial 101 85 - 104 mmHg [facility] Bicarbonate, Arterial 19.5(L) 20.0 - 26.0 mmol/L [facility] Base Excess, Arterial -5.5(L) -3.0 - 3.0 mmol/L [facility] Hgb Blood Gas 9.8(L) 11.7 - 15.5 g/dL [facility] Oxyhemoglobin, Arterial 95.2 94.0 - 97.0 % [facility] Carboxyhemoglob in, Arterial 0.2 % [facility] Comment: Nonsmokers: 0.5-1.5% COHB Smokers: Variable, but usually less than 10% Toxic: 20-30% COHB Lethal: Greater than 60% COHB Methemoglobin, Arterial 0.8 <=1.5 % [facility] Na Whole Blood 129(L) 135 - 145 mmol/L [facility] K Whole Blood 3.8 3.5 - 5.0 mmol/L [facility] Comment: Please note: Patients with WBC >100,000 may have falsely elevated Potassium levels. Contact the Clinical Chemistry Laboratory if there are any questions. ICa Whole Blood 1.05(L) 1.15 - 1.33 mmol/L [facility] Comment: Note: ??Total bilirubin higher than 20 mg/dL may lead to falsely low ionized calcium. CL Whole Blood 96(L) 98 - 107 mmol/L [facility] Gluc Whole Bld 178 65 - 199 mg/dL [facility] Comment:Diabetes: >=200 mg/d L plus symptoms. Lactate WB 1.5 0.5 - 2.2 mmol/L [facility] FIO2 Art 40 % [facility] PF Ratio Art 252 [facility] Blood 05/12/2023 3:57 PM EDT 05/12/2023 3:57 PM EDT Alirio Hudson MD POINT OF CARE TEST ORDERABLES [facility] [place] [address] * (ABNORMAL) Coox2 (05/12/2023 2:25 PM EDT) pO2, Coox 37 mmHg [facility] Hgb Blood Gas 9.5(L) 11.7 - 15.5 g/dL [facility] Oxyhemoglobin, Coox 59.9 % [facility] Carboxyhemoglo bin, Coox 0.3 % [facility] Comment: Nonsmokers: 0.5-1.5% COHB Smokers: Variable, but usually less than 10% Toxic: 20-30% COHB Lethal: Greater than 60% COHB Methemoglobin, Coox 0.7 <=1.5 % [facility] Source Coox Mixed Venous [facility] Blood 05/12/2023 2:25 PM EDT 05/12/2023 2:25 PM EDT Alirio Hudson MD POINT OF CARE TEST ORDERABLES [facility] [place] [address] * (ABNORMAL) BLOOD GAS 2 ARTERIAL (05/12/2023 2:23 PM EDT) pH, Arterial 7.37 7.35 - 7.45 [facility] PCO2, Arterial 36 35 - 45 mmHg [facility] PO2, Arterial 102 85 - 104 mmHg [facility] Bicarbonate, Arterial 20.4 20.0 - 26.0 mmol/L [facility] Base Excess, Arterial -4.8(L) -3.0 - 3.0 mmol/L [facility] Hgb Blood Gas 12.7 11.7 - 15.5 g/dL [facility] Oxyhemoglobin, Arterial 95.4 94.0 - 97.0 % [facility] Carboxyhemoglob in, Arterial 0.3 % [facility] Comment: Nonsmokers: 0.5-1.5% COHB Smokers: Variable, but usually less than 10% Toxic: 20-30% COHB Lethal: Greater than 60% COHB Methemoglobin, Arterial 0.7 <=1.5 % [facility] Na Whole Blood 129(L) 135 - 145 mmol/L [facility] K Whole Blood 3.7 3.5 - 5.0 mmol/L [facility] Comment: Please note: Patients with WBC >100,000 may have falsely elevated Potassium levels. Contact the Clinical Chemistry Laboratory if there are any questions. ICa Whole Blood 1.05(L) 1.15 - 1.33 mmol/L [facility] Comment: Note: ??Total bilirubin higher than 20 mg/dL may lead to falsely low ionized calcium. CL Whole Blood 95(L) 98 - 107 mmol/L [facility] Gluc Whole Bld 168 65 - 199 mg/dL [facility] Comment:Diabetes: >=200 mg/d L plus symptoms. Lactate WB 1.8 0.5 - 2.2 mmol/L [facility] FIO2 Art 40 % [facility] PF Ratio Art 255 [facility] Blood 05/12/2023 2:23 PM EDT 05/12/2023 2:23 PM EDT Alirio Hudson MD POINT OF CARE TEST ORDERABLES Performing Organization Address City/[facility]/[place] [address] * (ABNORMAL) Troponin (05/12/2023 2:05 PM EDT) Troponin-T, High Sensitivity 1,022(H) <=14 ng/L [facility] Comment: This patient's troponin T [...] troponin value can be found in the [facility] Laboratory Test Catalog Troponin - [facility] Laboratory Test Catalog Reference: Fourth [place] Definition of Myocardial Infarction. Journal of the [employer] 2018;72:9492-8709 Blood 05/12/2023 2:05 PM EDT 05/12/2023 2:14 PM EDT Narrative Resulting Agency Comment Spec In Lab Alirio Hudson MD CHEMISTRY ORDERABLE S Performing Organization Address City/[facility]/ZIP Co de Phone Number [facility] [place] [address] * (ABNORMAL) Hemoglobin (05/12/2023 2:05 PM EDT) Pathologist [facility] Hemoglobin 8.5(L) 11.7 - 15.5 g/dL [facility] Blood 05/12/2023 2:05 PM EDT 05/12/2023 2:14 PM EDT Narrative Resulting Agency Comment Spec In Lab Alirio Hudson MD HEMATOLOGY ORDERABL ES Performing Organization Address [facility] Co de Phone Number [facility] [place] [address] * Potassium (05/12/2023 2:05 PM EDT) [facility] Potassium 3.9 3.5 - 5.0 mmol/L [facility] Comment: Please note: ??Patients with [...] S Performing Organization Address [facility] Co de Phone Number [facility] [place] [address] * (ABNORMAL) BLOOD GAS 2 ARTERIAL (05/12/2023 11:05 AM EDT) pH, Arterial 7.34(L) 7.35 - 7.45 [facility] PCO2, Arterial 42 35 - 45 mmHg [facility] PO2, Arterial 73(L) 85 - 104 mmHg [facility] Bicarbonate, Arterial 22.1 20.0 - 26.0 mmol/L [facility] Base Excess, Arterial -3.6(L) -3.0 - 3.0 mmol/L [facility] Hgb Blood Gas 9.3(L) 11.7 - 15.5 g/dL [facility] Oxyhemoglobin, Arterial 89.3(L) 94.0 - 97.0 % [facility] Carboxyhemoglob in, Arterial 0.2 % [facility] Comment: Nonsmokers: 0.5-1.5% COHB Smokers: Variable, but usually less than 10% Toxic: 20-30% COHB Lethal: Greater than 60% COHB Methemoglobin, Arterial 0.9 <=1.5 % [facility] Na Whole Blood 131(L) 135 - 145 mmol/L [facility] K Whole Blood 3.8 3.5 - 5.0 mmol/L [facility] Comment: Please note: Patients with WBC >100,000 may have falsely elevated Potassium levels. Contact the Clinical Chemistry Laboratory if there are any questions. ICa Whole Blood 1.04(L) 1.15 - 1.33 mmol/L [facility] Comment: Note: ??Total bilirubin higher than 20 mg/dL may lead to falsely low ionized calcium. CL Whole Blood 96(L) 98 - 107 mmol/L [facility] Gluc Whole Bld 152 65 - 199 mg/dL [facility] Comment:Diabetes: >=200 mg/d L plus symptoms. Lactate WB 2.8(H) 0.5 - 2.2 mmol/L [facility] FIO2 Art 40 % [facility] PF Ratio Art 182 [facility] Blood 05/12/2023 11:0 5 AM EDT 05/12/2023 11:05 AM EDT Alirio Hudson MD POINT OF CARE TEST ORDERABLES Performing Organization Address City/State/[facility] Co de Phone Number [facility] [place] [address] * (ABNORMAL) BLOOD GAS 2 ARTERIAL (05/12/2023 10:14 AM EDT) pH, Arterial 7.18(Criti gabrielle) 7.35 - 7.45 [facility] Comment:Noted by instrumentation engineering technician. PCO2, Arterial 45 35 - 45 mmHg [facility] PO2, Arterial 186(H) 85 - 104 mmHg [facility] Bicarbonate, Arterial 16.2(L) 20.0 - 26.0 mmol/L [facility] Base Excess, Arterial -12.2(L) -3.0 - 3.0 mmol/L [facility] Hgb Blood Gas 10.0(L) 11.7 - 15.5 g/dL [facility] Oxyhemoglobin, Arterial 97.0 94.0 - 97.0 % [facility] Carboxyhemoglob in, Arterial 0.2 % [facility] Comment: Nonsmokers: 0.5-1.5% COHB Smokers: Variable, but usually less than 10% Toxic: 20-30% COHB Lethal: Greater than 60% COHB Methemoglobin, Arterial 0.9 <=1.5 % [facility] Na Whole Blood 129(L) 135 - 145 mmol/L [facility] K Whole Blood 3.6 3.5 - 5.0 mmol/L [facility] Comment: Please note: Patients with WBC >100,000 may have falsely elevated Potassium levels. Contact the Clinical Chemistry Laboratory if there are any questions. ICa Whole Blood 1.10(L) 1.15 - 1.33 mmol/L [facility] Comment: Note: ??Total bilirubin higher than 20 mg/dL may lead to falsely low ionized calcium. CL Whole Blood 97(L) 98 - 107 mmol/L [facility] Gluc Whole Bld 161 65 - 199 mg/dL [facility] Comment:Diabetes: >=200 mg/d L plus symptoms. Lactate WB 3.3(H) 0.5 - 2.2 mmol/L [facility] FIO2 Art 100 % [facility] PF Ratio Art 186 [facility] Blood 05/12/2023 10:1 4 AM EDT 05/12/2023 10:14 AM EDT Alirio Hudson MD POINT OF CARE TEST ORDERABLES [facility] [place] [address] * EKG 12 Lead (05/12/2023 10:10 AM EDT) Ventricular rate 116 BPM MUSE SYSTEM Atrial Rate 116 BPM MUSE SYSTEM P-R Interval 158 ms MUSE SYSTEM QRS Duration 114 ms MUSE SYSTEM Q-T Interval 348 ms MUSE SYSTEM QTC Calculated (Bezet) 483 ms MUSE SYSTEM Calculated P [place] 37 degrees MUSE SYSTEM Calculated R [place] 31 degrees MUSE SYSTEM Calculated T [place] -138 degrees MUSE SYSTEM INTERPRETATION Sinus tachycardia with intermittent aberrant ventricular conduction Possible Left atrial enlargement Incomplete left bundle block Left ventricular hypertrophy with repolarization abnormality ( Sokolow-Orozco , [place] product ) ST & T wave abnormality in Inferolateral leads Abnormal ECG When compared with ECG of 10-MAY-2023 13:16, ST & T wave abnormality is more pronounced in inferolateral leads I personally reviewed the tracing and edited the fellows interpretation Confirmed by fellow MD Anuja, Jim ([id number]) on 05/12/2023 1:04:20 PM Confirmed by MD Mono, Eleni ([id number]) on 05/12/2023 9:28:34 PM MUSE SYSTEM 05/12/2023 [...] questions please contact the health critical care specialist that requested your imaging first. ? Electronically signed by: Chyna Johnson MD, [facility] ??([phone]), at 05/12/2023 10:08 AM Narrative 05/12/2023 10:08 AM EDT EXAMINATION: XR CHEST ONE VIEW CLINICAL HISTORY: Post TAVR TECHNIQUE: 1 view of the chest COMPARISON: Chest radiograph from earlier today FINDINGS: Interval placement of endotracheal tube with tip terminating 2 cm above the shira. Interval placement of enteric tube projecting along the expected course of the esophagus and outside the tikzg-oz-uolj. Interval retraction of right IJ approach pulmonary [...] expected course ofthe esophagus and outside the wgnnw-wq-hjtk. Interval retraction of right IJ approach pulmonary [...] have questions please contactthe health critical care specialist that requested your imaging first. Electronically signed by: Chyna Johnson MD, [facility]([phone]), at 05/12/2023 10:08 AM Alirio Hudson MD IMG DX ORDERABLES * ECHO LMTD W/O CONTRAST W LMTD SPEC DOPP COLOR DOPP (05/12/2023 9:23 AM EDT) EF 20 [employer]360 SYSTEM Anatomical Region Laterality Modality Cardiac Other 05/12/2023 7:33 AM EDT Narrative 05/12/2023 10:18 AM EDT ? Echocardiogram Report Name: PURNIMA THACKER ?Study Date: 05/12/2023 07:33 AMBP: 96/63 mmHg ? Patient Location: [place]06 A : 1955 ? Height: 154 cm ? Account: [id number] Age: 67 yrs ? Weight: 75 kg Gender: Female ?BSA: 1.7 m2 Ordering Physician: RADHA HOLLINS Referring Physician: RADHA HOLLINS Performed By: Dilma Bee RDCS Reason For Study: Guidance for TAVR procedure Exam Location: [facility]. Interpretation Summary PRE TAVR: There is [...] mL/m2. POST TAVR: Normal function of the lsras-mc-ywlsx prosthesis. See below for hemodynamic parameters. Slight improvement in left and right ventricular systolic function. LVEF now 20-25%. No pericardial effusion. See report for additional findings. Procedure Limited - 55333. Doppler - 13636. Color Doppler - 06409. Left Ventricle Left ventricle is of normal [...] Date: 307:33 AMBP: 96/63 mmHg Patient Location: [address] : 1955 Height: 154 cm Account: [id number] Age: 67 yrs Weight: 75 kg Gender: Female BSA: 1.7 m2 Ordering Physician: RADHA HOLLINS Referring Physician: RADHA HOLLINS Performed By: Dilma Bee RDCS Reason For Study: Guidance for TAVR procedure Exam Location: [facility]. Interpretation Summary PRE TAVR: There is [...] 28mL/m2. POST TAVR: Normal function of the uhzdt-ga-tjojg prosthesis. See belowfor hemodynamic parameters. Slight improvement in left and right ventricularsystolic function. LVEF now 20-25%. No pericardial effusion. See report for additional findings. Procedure Limited - 60485. Doppler - 13927. Color Doppler - 34838. Left Ventricle Left ventricle is of normal [...] Modality Other Narrative 05/12/2023 2:37 PM EDT ?[facility] ? Cardiac Catheterization/Intervention Report ? Patient Name: Purnima Thacker. ? Procedure Date: 05/12/2023 ? A #: [id number] ? Primary Physician: Antelmo Sharma ? Case #: [id number] ? File Name: [id number] ? Catheterization Order Number: [id number] ? [facility] ? Final Report [place], [place] ? Patient Name: ? Purnima M. Kirstie ? ID#: ?[id number] ? : ?1955 ? Procedure Date: ? May 12, 2023 ? Case #: ? [id number] ? Room: ? 6 ? Case [...] Device Deployment ?* Temporary Pacemaker Insertion In Leaf Tier ?* Endotracheal Intubation By Non-Cath Physician ?* [...] ??A premounted 4.00 x 30 mm Nils Sawyer (MINNA) was ? deployed with a maximum [...] calculated STS risk score was 30.1%. A yjypq-yf-nzbje ?procedure was performed on the pre-existing bioprosthetic stented ?prosthesis. The priority of the bhylh-sg-gdchz procedure was Elective. ?The procedure was performed [...] Lai 3 Ultra RESILIA 23 mm THV (s/m=[id number]) transcatheter ?valve was inserted using standard technique. [...] to nor was it given in the ?senior label specialist. ?Recommended anti-platelet/anti-thrombotic regimen: ?Continue aspirin 81 mg daily for indefinitely. ?These recommendations are made at the time of the intervention. Patient ?and provider preferences or a changing clinical situation may require ?modification of this regimen. Consult [facility] [place] for ?questions. ? Conclusions: [...] regimen. ? Comments: ?Successful right transfemoral TAVR Umxrm-ck-Yjopx with a 23 mm Lai 3 ?THV. [...] insertion-coronary, access site angiography, ?temporary pacemaker in senior label specialist, intubation-non cath physician, vascular ?closure device, transthoracic echo ??and TAVR. Dr. Alirio Hudson M.D. ?performed the left heart catheterization, access site angiography, ?temporary pacemaker in senior label specialist, vascular closure device, transthoracic ?echo , TAVR and CPR during cath. Dr. Lynda Mcgowan M.D. performed the ABG, ?anesthesia and intubation-non cath physician. ? Antelmo Sharma M.D. ? Electronically Signed by: Antelmo Sharma M.D. ? Report Finalized: 05/12/2023 ??14:31 ? Report Last Ammended: 07/01/2023 ??11:30 ? Procedure Note Antlemo Sharma MD - 07/01/2023 [facility] Cardiac Catheterization/Intervention Report Patient Name: Purnima ThackerKaylie Procedure Date: 05/12/2023 A #: [id number] Primary Physician: Antelmo Sharma Case #: [id number] File Name: [id number] Catheterization Order Number: [id number] [facility] FinalReport [place], [place] Patient Name: Purnima Thacker ID#:[id number] :1955 Procedure Date: May 12, 2023 Case #: [id number] Room: 6 Case Physicians: Antelmo Sharma M.D. Start: 08:03 Alirio Hudson M.D. Admission:05/08/2023 Lynda Mcgowan M.D. Discharge:05/22/2023 Fellow: Rebekah Tejeda M.D. Referring Physician: Mario Alberto Chin M.D. Procedures: * Coronary Angiography * Left Heart Catheterization * Coronary Stent Insertion * Transcatheter Aortic Valve Replacement * Vascular Closure Device Deployment * Temporary Pacemaker Insertion In Leaf Tier * Endotracheal Intubation By Non-Cath Physician * [...] guide. A premounted 4.00 x 30 mm [place] Sawyer (MINNA) was deployed with a maximum inflation [...] calculated STS risk score was 30.1%. A pxhbh-ro-vupkc procedure was performed on the pre-existing bioprosthetic stented prosthesis. The priority of the jjdop-cl-kakpb procedure wasElective. The procedure was performed under Moderate sedation performed byLynda Mcgowan M.D. (see anesthesia report for additional details). Alirio Hudson M.D. participated in the case (see Cardiac Surgery reportfor additional details). The TAVR sheath was a 14 Fr Corona eSheath Introducer and theaccess site was femoral. Rapid ventricular pacing was performed. An Corona Lai 3 Ultra RESILIA 23 mm THV (s/d=[id number])transcatheter valve was inserted using standard technique. The [...] prior to nor was it given inthe senior label specialist. Recommended anti-platelet/anti-thrombotic regimen: Continue aspirin 81 mg daily for indefinitely. These recommendations are made at the time of the intervention.Patient and provider preferences or a changing clinical situation mayrequire modification of this regimen. [place] [facility] [place] questions. Conclusions: * Nonobstructive [...] this regimen. Comments: Successful right transfemoral TAVR Ftexu-sv-Wgtbu with a 23 mmSapien 3 THV. We [...] insertion-coronary, access site angiography, temporary pacemaker in senior label specialist, intubation-non cath physician,vascular closure device, transthoracic echo and TAVR. Dr. Alirio Hudson M.D. performed the left heart catheterization, access site angiography, temporary pacemaker in senior label specialist, vascular closure device,transthoracic echo , TAVR [...] pH, POC 7.20(Crit ical) 7.35 - 7.45 [facility] Comment:Critical value OK, C C Lab. pCO2, POC 42 35 - 45 mmHg [facility] pO2, POC 260(H) 85 - 104 mmHg [facility] Base Excess, POC -11.0(L) -3.0 - 3.0 mmol/L [facility] Bicarbonate, POC 16.7(L) 20.0 - 26.0 mmol/L [facility] Sodium, POC 129(L) 135 - 145 mmol/L [facility] POC Potassium 3.8 3.5 - 5.0 mmol/L [facility] Ionized Calcium, POC 1.12(L) 1.15 - 1.33 mmol/L [facility] POC Hematocrit 23.0(L) 34.0 - 45.0 % [facility] POC Calc Hgb 7.8(L) 11.2 - 15.7 g/dL [facility] Comment:The calculation of h emoglobin from hematocrit assumes a normal MCHC. POC Bgas Loc CC Lab [facility] Blood 05/12/2023 8:50 AM EDT 05/13/2023 12:00 PM EDT Alirio Hudson MD CHEMISTRY ORDERABLE S [facility] [place] [address] * (ABNORMAL) Point of Care Blood Gas Historical (05/12/2023 8:10 AM EDT) pH, POC 7.27(Crit ical) 7.35 - 7.45 [facility] Comment:Critical value Yamel KRAUSE C Lab. pCO2, POC 37 35 - 45 mmHg [facility] pO2, POC 29(Critic al) 85 - 104 mmHg [facility] Comment:Critical value JIMI C C Lab. Base Excess, POC -10.0(L) -3.0 - 3.0 mmol/L [facility] Bicarbonate, POC 16.7(L) 20.0 - 26.0 mmol/L [facility] Sodium, POC 123(L) 135 - 145 mmol/L [facility] POC Potassium 4.0 3.5 - 5.0 mmol/L [facility] Ionized Calcium, POC 1.12(L) 1.15 - 1.33 mmol/L [facility] POC Hematocrit 27.0(L) 34.0 - 45.0 % [facility] POC Calc Hgb 9.2(L) 11.2 - 15.7 g/dL [facility] Comment:The calculation of h emoglobin from hematocrit assumes a normal MCHC. POC Bgas Loc CC Lab [facility] Blood 05/12/2023 8:10 AM EDT 05/13/2023 12:00 PM EDT Alirio Hudson MD CHEMISTRY ORDERABLE S Performing Organization Address City/[facility]/ZIP Co de Phone Number [facility] [place] [address] * (ABNORMAL) Lactate, whole blood, send to lab ([facility]) (05/12/2023 7:00 AM EDT) Lactate WB 2.4(H) 0.5 - 2.2 mmol/L [facility] Blood 05/12/2023 7:00 AM EDT 05/12/2023 7:09 AM EDT Narrative Resulting Agency Comment Spec In Lab Radha Hollins MD CHEMISTRY ORDERABL ES Performing Organization Address [facility] Co de Phone Number [facility] [place] [address] * (ABNORMAL) Comprehensive metabolic panel (non-fasting) (05/12/2023 6:00 AM EDT) Glucose 167 65 - 199 mg/dL [facility] Comment:Diabetes: >=200 mg/d L plus symptoms Blood Urea Nitrogen 67(H) 8 - 18 mg/dL [facility] Creatinine 2.01(H) 0.70 - 1.20 mg/dL [facility] Sodium 131(L) 135 - 145 mmol/L [facility] Potassium 4.3 3.5 - 5.0 mmol/L [facility] Comment: Please note: ??Patients with WBC >100,000 may have falsely elevated Potassium levels. ??For accurate Potassium quantification in these patients send serum separator tube (gold top) for subsequent determinations. ??Contact the Clinical Chemistry Laboratory if there are any questions. Chloride 97(L) 98 - 107 mmol/L [facility] Carbon Dioxide 14(L) 22 - 31 mmol/L [facility] Anion Gap 20(H) 5 - 15 mmol/L [facility] Calcium 8.6 8.5 - 10.5 mg/dL [facility] Protein, Total 6.3 6.1 - 8.0 g/dL [facility] Albumin 3.5 3.2 - 5.2 g/dL [facility] Aspartate Aminotransferase 1,435(H) 0 - 30 unit/L [facility] Alanine Aminotransferase 1,174(H) 0 - 30 unit/L [facility] Alkaline Phosphatase 100 35 - 105 unit/L [facility] Bilirubin, Total 0.9 0.2 - 1.3 mg/dL [facility] Est Glomerular Filtration Rate 27(L) >=60 mL/min/1. 73 m?? [facility] Comment: This patient's estimated GFR [...] Lab Radha Hollins MD CHEMISTRY ORDERABL ES [facility] [place] [address] * (ABNORMAL) Coox2 (05/12/2023 5:08 AM EDT) pO2, Coox 24 mmHg [facility] Hgb Blood Gas 10.4(L) 11.7 - 15.5 g/dL [facility] Oxyhemoglobin, Coox 30.7 % [facility] Carboxyhemoglo bin, Coox 0.3 % [facility] Comment: Nonsmokers: 0.5-1.5% COHB Smokers: Variable, but usually less than 10% Toxic: 20-30% COHB Lethal: Greater than 60% COHB Methemoglobin, Coox 0.8 <=1.5 % [facility] Source Coox Mixed Venous [facility] Blood 05/12/2023 5:08 AM EDT 05/12/2023 5:08 AM EDT Radha Hollins MD POINT OF CARE TEST ORDERABLES [facility] [place] [address] * (ABNORMAL) Coox2 (05/12/2023 3:21 AM EDT) pO2, Coox 25 mmHg [facility] Hgb Blood Gas 10.8(L) 11.7 - 15.5 g/dL [facility] Oxyhemoglobin, Coox 32.7 % [facility] Carboxyhemoglo bin, Coox 0.3 % [facility] Comment: Nonsmokers: 0.5-1.5% COHB Smokers: Variable, but usually less than 10% Toxic: 20-30% COHB Lethal: Greater than 60% COHB Methemoglobin, Coox 0.7 <=1.5 % [facility] Source Coox Mixed Venous [facility] Blood 05/12/2023 3:21 AM EDT 05/12/2023 3:21 AM EDT Radha Hollins MD POINT OF CARE TEST ORDERABLES [facility] [place] [address] * (ABNORMAL) BLOOD GAS 2 ARTERIAL (05/12/2023 3:18 AM EDT) pH, Arterial 7.34(L) 7.35 - 7.45 [facility] PCO2, Arterial 30(L) 35 - 45 mmHg [facility] PO2, Arterial 72(L) 85 - 104 mmHg [facility] Bicarbonate, Arterial 16.0(L) 20.0 - 26.0 mmol/L [facility] Base Excess, Arterial -9.8(L) -3.0 - 3.0 mmol/L [facility] Hgb Blood Gas 11.0(L) 11.7 - 15.5 g/dL [facility] Oxyhemoglobin, Arterial 89.8(L) 94.0 - 97.0 % [facility] Carboxyhemoglob in, Arterial 0.3 % [facility] Comment: Nonsmokers: 0.5-1.5% COHB Smokers: Variable, but usually less than 10% Toxic: 20-30% COHB Lethal: Greater than 60% COHB Methemoglobin, Arterial 0.7 <=1.5 % [facility] Na Whole Blood 131(L) 135 - 145 mmol/L [facility] K Whole Blood 4.2 3.5 - 5.0 mmol/L [facility] Comment: Please note: Patients with WBC >100,000 may have falsely elevated Potassium levels. Contact the Clinical Chemistry Laboratory if there are any questions. ICa Whole Blood 1.12(L) 1.15 - 1.33 mmol/L [facility] Comment: Note: ??Total bilirubin higher than 20 mg/dL may lead to falsely low ionized calcium. CL Whole Blood 100 98 - 107 mmol/L [facility] Gluc Whole Bld 160 65 - 199 mg/dL [facility] Comment:Diabetes: >=200 mg/d L plus symptoms. Lactate WB 2.7(H) 0.5 - 2.2 mmol/L [facility] Flow Art 5.0 LPM [facility] Blood 05/12/2023 3:18 AM EDT 05/12/2023 3:18 AM EDT Radha Hollins MD POINT OF CARE TEST ORDERABLES [facility] [place] [address] * (ABNORMAL) Coox2 (05/12/2023 1:14 AM EDT) pO2, Coox 28 mmHg [facility] Hgb Blood Gas 10.9(L) 11.7 - 15.5 g/dL [facility] Oxyhemoglobin, Coox 37.3 % [facility] Carboxyhemoglo bin, Coox 0.3 % [facility] Comment: Nonsmokers: 0.5-1.5% COHB Smokers: Variable, but usually less than 10% Toxic: 20-30% COHB Lethal: Greater than 60% COHB Methemoglobin, Coox 0.5 <=1.5 % [facility] Source Coox Mixed Venous [facility] Blood 05/12/2023 1:14 AM EDT 05/12/2023 1:14 AM EDT Radha Hollins MD POINT OF CARE TEST ORDERABLES [facility] [place] [address] * (ABNORMAL) BLOOD GAS 2 ARTERIAL (05/12/2023 1:06 AM EDT) pH, Arterial 7.34(L) 7.35 - 7.45 [facility] PCO2, Arterial 30(L) 35 - 45 mmHg [facility] PO2, Arterial 81(L) 85 - 104 mmHg [facility] Bicarbonate, Arterial 15.7(L) 20.0 - 26.0 mmol/L [facility] Base Excess, Arterial -10.1(L) -3.0 - 3.0 mmol/L [facility] Hgb Blood Gas 11.0(L) 11.7 - 15.5 g/dL [facility] Oxyhemoglobin, Arterial 92.3(L) 94.0 - 97.0 % [facility] Carboxyhemoglob in, Arterial 0.2 % [facility] Comment: Nonsmokers: 0.5-1.5% COHB Smokers: Variable, but usually less than 10% Toxic: 20-30% COHB Lethal: Greater than 60% COHB Methemoglobin, Arterial 0.6 <=1.5 % [facility] Na Whole Blood 131(L) 135 - 145 mmol/L [facility] K Whole Blood 4.2 3.5 - 5.0 mmol/L [facility] Comment: Please note: Patients with WBC >100,000 may have falsely elevated Potassium levels. Contact the Clinical Chemistry Laboratory if there are any questions. ICa Whole Blood 1.13(L) 1.15 - 1.33 mmol/L [facility] Comment: Note: ??Total bilirubin higher than 20 mg/dL may lead to falsely low ionized calcium. CL Whole Blood 99 98 - 107 mmol/L [facility] Gluc Whole Bld 132 65 - 199 mg/dL [facility] Comment:Diabetes: >=200 mg/d L plus symptoms. Lactate WB 2.7(H) 0.5 - 2.2 mmol/L [facility] Flow Art 5.0 LPM [facility] Blood 05/12/2023 1:06 AM EDT 05/12/2023 1:06 AM EDT Radha Hollins MD POINT OF CARE TEST ORDERABLES Performing Organization Address City/State/[facility] Co de Phone Number [facility] [place] [address] * (ABNORMAL) Differential, Automated (05/12/2023 1:05 AM EDT) Neutrophil % 83.3 % [facility] Neutrophil Absolute 7.49(H) 1.70 - 6.10 x10(3)/mc L [facility] Lymph % 7.1 % [facility] Lymphocytes Abs 0.6(L) 0.9 - 3.2 x10(3)/mc L [facility] Monocyte % 8.9 % [facility] Monocyte Abs 0.8 0.3 - 0.9 x10(3)/mc L [facility] Eos % 0.0 % [facility] Eosinophils Abs 0.0 0.0 - 0.4 x10(3)/mc L [facility] Basophil % 0.1 % [facility] Baso Absolute 0.0 0.0 - 0.1 x10(3)/mc L [facility] Immature Gran % 0.60 % [facility] Comment: Immature granulocytes(IG's)percentage and absolute count will include metamyelocytes, myelocytes, and promyelocytes. Blood smears from CBCs yielding IG's will be scanned manually for concordance. If this scan disagrees with the automated IG or if promyelocytes are noted, a manual differential will be performed. Immature Gran Absolute 0.05(H) 0.00 - 0.04 x10(3)/mc L [facility] Blood 05/12/2023 1:05 AM EDT 05/12/2023 1:15 AM EDT Narrative Resulting Agency Comment Spec In Lab Gianni Fletcher MD HEMATOLOGY ORDERABLE S [facility] [place] [address] * (ABNORMAL) Hemogram (05/12/2023 1:05 AM EDT) White Blood Cell 9.0 4.0 - 9.5 x10(3)/[facility] Red Blood Cell 3.01(L) 4.00 - 5.21 x10(6)/ L [facility] Hemoglobin 9.8(L) 11.7 - 15.5 g/dL [facility] Hematocrit 28.7(L) 35.7 - 45.8 % [facility] Mean Cell Volume 95.3(H) 82.6 - 94.4 fL [facility] Mean Cell Hemoglobin 32.6(H) 27.1 - 32.0 pg [facility] Mean Cell Hemoglobin Concentration 34.1 31.7 - 35.0 g/dL [facility] Platelet 186 145 - 357 x10(3)/mc L [facility] RDW Standard Deviation 43.7 37.0 - 46.0 fL [facility] RDW coefficient of variation 12.7 11.5 - 14.1 % [facility] Mean Platelet Volume 10.3 7.6 - 12.9 fL [facility] NRBC% auto 0.0 % [facility] NRBC Absolute 0.000 0.000 - 0.000 x10(3)/ L [facility] Blood 05/12/2023 1:05 AM EDT 05/12/2023 1:15 AM EDT Narrative Resulting Agency Comment Spec In Lab Gianni Fletcher MD HEMATOLOGY ORDERABLE S [facility] [place] [address] * (ABNORMAL) Comprehensive metabolic panel (non-fasting) (05/12/2023 1:05 AM EDT) Glucose 141 65 - 199 mg/dL [facility] Comment:Diabetes: >=200 mg/d L plus symptoms Blood Urea Nitrogen 63(H) 8 - 18 mg/dL [facility] Creatinine 1.86(H) 0.70 - 1.20 mg/dL [facility] Sodium 131(L) 135 - 145 mmol/L [facility] Potassium 4.4 3.5 - 5.0 mmol/L [facility] Comment: Please note: ??Patients with WBC >100,000 may have falsely elevated Potassium levels. ??For accurate Potassium quantification in these patients send serum separator tube (gold top) for subsequent determinations. ??Contact the Clinical Chemistry Laboratory if there are any questions. Chloride 96(L) 98 - 107 mmol/L [facility] Carbon Dioxide 14(L) 22 - 31 mmol/L [facility] Anion Gap 21(H) 5 - 15 mmol/L [facility] Calcium 9.0 8.5 - 10.5 mg/dL [facility] Protein, Total 6.6 6.1 - 8.0 g/dL [facility] Albumin 3.9 3.2 - 5.2 g/dL [facility] Aspartate Aminotransferase 1,227(H) 0 - 30 unit/L [facility] Alanine Aminotransferase 1,097(H) 0 - 30 unit/L [facility] Alkaline Phosphatase 108(H) 35 - 105 unit/L [facility] Bilirubin, Total 1.0 0.2 - 1.3 mg/dL [facility] Est Glomerular Filtration Rate 29(L) >=60 mL/min/1. 73 m?? [facility] Comment: This patient's estimated GFR [...] Lab Radha Hollins MD CHEMISTRY ORDERABL ES [facility] [place] [address] * XR Chest One View (05/12/2023 1:00 [...] questions please contact the health critical care specialist that requested your imaging first. ? Electronically signed by: Will Rowe MD, [facility] ([phone]), at 05/12/2023 3:16 AM Narrative 05/12/2023 3:16 [...] have questions please contactthe health critical care specialist that requested your imaging first. Electronically signed by: Will Rowe MD, [facility]([phone]), at 05/12/2023 3:16 AM Radha Hollins MD IMG DX ORDERABLES * (ABNORMAL) Coox2 (05/12/2023 12:30 AM EDT) pO2, Coox 22 mmHg [facility] Hgb Blood Gas 10.9(L) 11.7 - 15.5 g/dL [facility] Oxyhemoglobin, Coox 25.1 % [facility] Carboxyhemoglo bin, Coox 0.3 % [facility] Comment: Nonsmokers: 0.5-1.5% COHB Smokers: Variable, but usually less than 10% Toxic: 20-30% COHB Lethal: Greater than 60% COHB Methemoglobin, Coox 1.4 <=1.5 % [facility] Source Coox Mixed Venous [facility] Blood 05/12/2023 12:3 0 AM EDT 05/12/2023 12:30 AM EDT Radha Hollins MD POINT OF CARE TEST ORDERABLES [facility] [place] [address] * XR Chest One View (05/11/2023 11:45 [...] questions please contact the health critical care specialist that requested your imaging first. ? Electronically signed by: Will Rowe MD, [facility] ([phone]), at 05/11/2023 11:57 PM Narrative 05/11/2023 11:57 [...] have questions please contactthe health critical care specialist that requested your imaging first. Electronically signed by: Will Rowe MD, [facility]([phone]), at 05/11/2023 11:57 PM Radha Hollins MD IMG DX ORDERABLES * (ABNORMAL) Lactate, whole blood, [place] to lab [place]) (05/11/2023 7:40 PM EDT) Lactate WB 4.8(Critic al) 0.5 - 2.2 mmol/L [facility] Comment:Called by: IMM, Read back by: Magdalena Baires, Date/Time:05/11/23 19:54. Blood 05/11/2023 7:40 PM EDT 05/11/2023 7:49 PM EDT Narrative Resulting Agency Comment Spec In Lab Radha Hollins MD CHEMISTRY ORDERABL ES Performing Organization Address [facility] Co de Phone Number [facility] [place] [address] * Urine culture (05/11/2023 7:22 PM EDT) Pathologist [facility] Urine Culture 50,000-99,000 cfu/ml Normal mucosal herman Susceptibilit y testing not routinely performed for Coagulase Negative Staphylococcu s species and other Gram Positive organisms from urine. [facility] Clean Catch Urine 05/11/2023 7:22 PM EDT 05/11/2023 8:50 PM EDT Narrative Resulting Agency Comment Spec In Lab Brody Kaplan APRN MICROBIOLOGY - GENE RAL ORDERABLES Performing Organization Address [facility] de Phone Number [facility] [place] [address] * (ABNORMAL) Urinalysis Microscopic Exam (05/11/2023 7:22 PM EDT) RBC, Urine 2 0 - 4 /HPF [facility] WBC, Urine >100(H) 0 - 5 /HPF [facility] Bacteria, Urine Occasional (A) None /HPF [facility] Squamous Epithelial Cells Raw Data, Urine 5(H) <=4 /HPF [facility] Hyaline Casts, Urine 3(H) 0 - 2 /LPF [facility] Clean Catch Urine 05/11/2023 7:22 PM EDT 05/11/2023 7:31 PM EDT Narrative Resulting Agency Comment Spec In Lab Brody Kaplan APRN URINE ORDERABLES [facility] [place] [address] * (ABNORMAL) Urinalysis with reflex Culture (05/11/2023 7:22 PM EDT) Glucose, Urine Dipstick Negative Negative mg/dL [facility] Protein, Urine Dipstick Trace(A) Negative mg/dL [facility] Bilirubin, Urine Dipstick Negative Negative mg/dL [facility] Comment: Clinical correlation required for positive Urine Bilirubin results as false positive may occur with some drugs and drug related products. If a false positive is suspected a serum total bilirubin should be considered if clinically indicated. Urobilinogen, Urine Dipstick Normal Normal mg/dL [facility] pH, Urn (dipstick) 5.0 5.0 - 8.0 [facility] Blood, Urine Dipstick Trace(A) Negative mg/dL [facility] Ketone, Urine Dipstick Negative Negative mg/dL [facility] Nitrite, Urine Dipstick Negative Negative [facility] Leukocytes, Urine Dipstick Moderate(A) Negative mcL [facility] Appearance, Urine Dipstick Cloudy(A) Clear [facility] Specific Cordell Urine Automated >=1.030(A) 1.005 - 1.030 [facility] Color, Urine Dipstick Yellow Yellow [facility] Reflex to Culture Yes [facility] Clean Catch Urine 05/11/2023 7:22 PM EDT 05/11/2023 7:31 PM EDT Narrative Resulting Agency Comment Spec In Lab Brody Kaplan [employer] URINE ORDERABLES [facility] [place] [address] * (ABNORMAL) pro-Brain Natriuretic Peptide (05/11/2023 7:11 PM EDT) NT-proBNP >35,000(H) <=124 pg/mL [facility] Blood 05/11/2023 7:11 PM EDT 05/11/2023 7:26 PM EDT Narrative Resulting Agency Comment Spec In Lab Radha Hollins MD CHEMISTRY ORDERABL ES Performing Organization Address [facility]/ZIP Co de Phone Number [facility] [place] [address] * (ABNORMAL) Lactate, whole blood, send to lab ([facility] (05/11/2023 2:47 PM EDT) Lactate WB 2.9(H) 0.5 - 2.2 mmol/L [facility] Blood 05/11/2023 2:47 PM EDT 05/11/2023 2:53 PM EDT Narrative Resulting Agency Comment Spec In Lab Juan Luis Gonzalez MD CHEMISTRY ORDERABLES Performing Organization Address [facility] Co de Phone Number [facility] [place] [address] * (ABNORMAL) CT Angiogram Abdomen & Pelvis [...] questions please contact the health critical care specialist that requested your imaging first. [...] questions please contact the health critical care specialist that requested your imaging first. ? Electronically signed by: Cullen Narayanan MD, [facility] ([phone]), at 05/11/2023 4:37 PM Narrative 05/11/2023 4:37 [...] 610 mm2 Circumference: 88 mm Calcification: Mild Tfsziha-ae-mmssivki height: Left: 6.2 mm Right: 5.8 mm THORACIC AORTA Description: Normal course and caliber. ??Mild diffuse atherosclerotic changes. No acute aortopathy noted. Certified Ophthalmic Surgical Assistant dimensions: Aortic root: 27.6 mm Max ascending aorta: 30.5 mm x 27.7 mm Suggested fluoroscopic angulation based on line extending through the nadirs of the three sinuses of Valsalva, set equidistant: ?? ROMANIAN ??9 degrees; cranial 7 degrees MITRAL: Mitral [...] 610 mm2 Circumference: 88 mm Calcification: Mild Hnxrvhh-sn-ucapqsxs height: Left: 6.2 mm Right: 5.8 mm THORACIC AORTA Description: Normal course and caliber. Mild diffuse atheroscleroticchanges. No acute aortopathy noted. Certified Ophthalmic Surgical Assistant dimensions: Aortic root: 27.6 mm Max ascending aorta: 30.5 mm x 27.7 mm Suggested fluoroscopic angulation based on line extending through thenadirs of the three sinuses of Valsalva, set equidistant: ROMANIAN 9 degrees; cranial 7 degrees MITRAL: Mitral [...] have questions please contactthe health critical care specialist that requested your imaging first. Electronically signed by: Cullen Narayanan MD, [facility]([phone]), at 05/11/2023 4:37 PM Antelmo Sharma MD IMG CT ORDERABLES * (ABNORMAL) Lactate, whole blood, send to lab [place]) (05/11/2023 9:29 AM EDT) Pathologist [facility] Lactate WB 3.1(H) 0.5 - 2.2 mmol/L [facility] Blood 05/11/2023 9:29 AM EDT 05/11/2023 9:38 AM EDT Narrative Resulting Agency Comment Spec In Lab Juan Luis Gonzalez MD CHEMISTRY ORDERABLES [facility] [place] [address] * (ABNORMAL) Differential, Automated (05/11/2023 4:42 AM EDT) Neutrophil % 78.1 % [facility] Neutrophil Absolute 5.46 1.70 - 6.10 x10(3)/mc L [facility] Lymph % 10.6 % [facility] Lymphocytes Abs 0.7(L) 0.9 - 3.2 x10(3)/mc L [facility] Monocyte % 9.6 % [facility] Monocyte Abs 0.7 0.3 - 0.9 x10(3)/mc L [facility] Eos % 0.0 % [facility] Eosinophils Abs 0.0 0.0 - 0.4 x10(3)/mc L [facility] Basophil % 0.4 % [facility] Baso Absolute 0.0 0.0 - 0.1 x10(3)/ L [facility] Immature Gran % 1.30 % [facility] Comment: Immature granulocytes(IG's)percentage and absolute count will include metamyelocytes, myelocytes, and promyelocytes. Blood smears from CBCs yielding IG's will be scanned manually for concordance. If this scan disagrees with the automated IG or if promyelocytes are noted, a manual differential will be performed. Immature Gran Absolute 0.09(H) 0.00 - 0.04 x10(3)/ L [facility] Blood 05/11/2023 4:42 AM EDT 05/11/2023 4:49 AM EDT Narrative Resulting Agency Comment Spec In Lab Klaudia Reid MD HEMATOLOGY OR DERABLES Performing Organization Address City/State/[facility] Co de Phone Number [facility] [place] [address] * (ABNORMAL) Hemogram (05/11/2023 4:42 AM EDT) White Blood Cell 7.0 4.0 - 9.5 x10(3)/[facility] Red Blood Cell 3.44(L) 4.00 - 5.21 x10(6)/[facility] Hemoglobin 11.1(L) 11.7 - 15.5 g/dL [facility] Hematocrit 32.7(L) 35.7 - 45.8 % [facility] Mean Cell Volume 95.1(H) 82.6 - 94.4 fL [facility] Mean Cell Hemoglobin 32.3(H) 27.1 - 32.0 pg [facility] Mean Cell Hemoglobin Concentration 33.9 31.7 - 35.0 g/dL [facility] Platelet 165 145 - 357 x10(3)/[facility] RDW Standard Deviation 43.1 37.0 - 46.0 fL [facility] RDW coefficient of variation 12.7 11.5 - 14.1 % [facility] Mean Platelet Volume 10.1 7.6 - 12.9 fL [facility] NRBC% auto 0.0 % [facility] NRBC Absolute 0.000 0.000 - 0.000 x10(3)/mc L [facility] Blood 05/11/2023 4:42 AM EDT 05/11/2023 4:49 AM EDT Narrative Resulting Agency Comment Spec In Lab Klaudia Reid MD HEMATOLOGY OR DERABLES Performing Organization Address [facility] Co de Phone Number [facility] [place] [address] * Heparin (unfractionated) Level (05/11/2023 4:42 AM EDT) UF Heparin 0.46 IU/mL [facility] Comment: Heparin (anti-Xa) levels should [...] LES Performing Organization Address [facility] Co de Phone Number [facility] [place] [address] * (ABNORMAL) Comprehensive metabolic panel (non-fasting) (05/11/2023 4:42 AM EDT) Glucose 143 65 - 199 mg/dL [facility] Comment:Diabetes: >=200 mg/d L plus symptoms Blood Urea Nitrogen 42(H) 8 - 18 mg/dL [facility] Creatinine 1.24(H) 0.70 - 1.20 mg/dL [facility] Sodium 134(L) 135 - 145 mmol/L [facility] Potassium 4.6 3.5 - 5.0 mmol/L [facility] Comment: Please note: ??Patients with WBC >100,000 may have falsely elevated Potassium levels. ??For accurate Potassium quantification in these patients send serum separator tube (gold top) for subsequent determinations. ??Contact the Clinical Chemistry Laboratory if there are any questions. Chloride 99 98 - 107 mmol/L [facility] Carbon Dioxide 14(L) 22 - 31 mmol/L [facility] Anion Gap 21(H) 5 - 15 mmol/L [facility] Calcium 9.6 8.5 - 10.5 mg/dL [facility] Protein, Total 7.2 6.1 - 8.0 g/dL [facility] Albumin 3.7 3.2 - 5.2 g/dL [facility] Aspartate Aminotransferase 144(H) 0 - 30 unit/L [facility] Comment:result rechecked-ssc Alanine Aminotransferase 130(H) 0 - 30 unit/L [facility] Comment:result rechecked-ssc Alkaline Phosphatase 72 35 - 105 unit/L [facility] Bilirubin, Total 0.8 0.2 - 1.3 mg/dL [facility] Est Glomerular Filtration Rate 48(L) >=60 mL/min/1. 73 m?? [facility] Comment: This patient's estimated GFR [...] Lab Radha Hollins MD CHEMISTRY ORDERABL ES [facility] [place] [address] * EKG 12 Lead (05/10/2023 1:16 PM EDT) Ventricular rate 118 BPM MUSE SYSTEM Atrial Rate 118 BPM MUSE SYSTEM P-R Interval 152 ms MUSE SYSTEM QRS Duration 104 ms MUSE SYSTEM Q-T Interval 316 ms MUSE SYSTEM QTC Calculated (Bezet) 442 ms MUSE SYSTEM Calculated P [place] 29 degrees MUSE SYSTEM Calculated R [place] 18 degrees MUSE SYSTEM Calculated T [place] -173 degrees MUSE SYSTEM INTERPRETATION Sinus tachycardia [...] Anterior leads Confirmed by MD Mono, Eleni ([id number]) on 05/10/2023 8:47:46 PM MUSE SYSTEM 05/10/2023 1:16 PM EDT 05/10/2023 8:47 PM EDT Juan Luis Gonzalez MD ECG ORDERABLES Performing Organization Address City/[facility]/ZIP Co de Phone Number MUSE SYSTEM * Lactate, whole blood, send to lab [place] (05/10/2023 11:52 AM EDT) Pathologist [facility] Lactate WB 1.8 0.5 - 2.2 mmol/L [facility] Blood 05/10/2023 11:5 2 AM EDT 05/10/2023 12:13 PM EDT Narrative Resulting Agency Comment Spec In Lab Juan Luis Gonzaelz MD CHEMISTRY ORDERABLES [facility] [place] [address] * XR Chest One View (05/10/2023 11:16 [...] questions please contact the health critical care specialist that requested your imaging first. ? Electronically signed by: ALIX RUVALCABA MD, [facility] ([phone]), at 05/10/2023 1:25 PM Narrative 05/10/2023 1:25 [...] have questions please contactthe health critical care specialist that requested your imaging first. Electronically signed by: ALIX RUVALCABA MD, [facility]([phone]), at 05/10/2023 1:25 PM Juan Luis Gonzalez MD IMG DX ORDERABLES * EKG 12 Lead (05/10/2023 7:59 AM EDT) Ventricular rate 115 BPM MUSE SYSTEM Atrial Rate 115 BPM MUSE SYSTEM P-R Interval 142 ms MUSE SYSTEM QRS Duration 102 ms MUSE SYSTEM Q-T Interval 322 ms MUSE SYSTEM QTC Calculated (Bezet) 445 ms MUSE SYSTEM Calculated P [place] 36 degrees MUSE SYSTEM Calculated R [place] 28 degrees MUSE SYSTEM Calculated T [place] -119 degrees MUSE SYSTEM INTERPRETATION Sinus tachycardia with frequent Premature ventricular complexes and Fusion complexes ST & T wave abnormality, consider lateral ischemia Abnormal ECG When compared with ECG of 08-MAY-2023 15:51, No significant change was found I personally reviewed the tracing and edited the fellows interpretation Confirmed by fellow MD Anitha, Carissa ([id number]) on 05/11/2023 6:19:54 AM Confirmed by MD Tram, Chel ([id number]) on 05/11/2023 3:18:56 PM MUSE SYSTEM 05/10/2023 7:59 AM EDT 05/11/2023 3:18 PM EDT Radha Hollins MD ECG ORDERABLES MUSE SYSTEM * (ABNORMAL) Differential, Automated (05/10/2023 2:28 AM EDT) Neutrophil % 77.1 % [facility] Neutrophil Absolute 4.01 1.70 - 6.10 x10(3)/mc L [facility] Lymph % 14.0 % [facility] Lymphocytes Abs 0.7(L) 0.9 - 3.2 x10(3)/mc L [facility] Monocyte % 7.7 % [facility] Monocyte Abs 0.4 0.3 - 0.9 x10(3)/mc L [facility] Eos % 0.4 % [facility] Eosinophils Abs 0.0 0.0 - 0.4 x10(3)/ L [facility] Basophil % 0.4 % [facility] Baso Absolute 0.0 0.0 - 0.1 x10(3)/ L [facility] Immature Gran % 0.40 % [facility] Comment: Immature granulocytes(IG's)percentage and absolute count will include metamyelocytes, myelocytes, and promyelocytes. Blood smears from CBCs yielding IG's will be scanned manually for concordance. If this scan disagrees with the automated IG or if promyelocytes are noted, a manual differential will be performed. Immature Gran Absolute 0.02 0.00 - 0.04 x10(3)/[facility] LAB[facility] Blood 05/10/2023 2:28 AM EDT 05/10/2023 2:57 AM EDT Narrative Resulting Agency Comment Spec In Lab Klaudia Reid MD HEMATOLOGY OR DERABLES [facility] [place] [address] * (ABNORMAL) Hemogram (05/10/2023 2:28 AM EDT) White Blood Cell 5.2 4.0 - 9.5 x10(3)/ L [facility] Red Blood Cell 3.11(L) 4.00 - 5.21 x10(6)/mc L [facility] Hemoglobin 10.2(L) 11.7 - 15.5 g/dL [facility] Hematocrit 30.2(L) 35.7 - 45.8 % [facility] Mean Cell Volume 97.1(H) 82.6 - 94.4 fL [facility] Mean Cell Hemoglobin 32.8(H) 27.1 - 32.0 pg [facility] Mean Cell Hemoglobin Concentration 33.8 31.7 - 35.0 g/dL [facility] Platelet 151 145 - 357 x10(3)/ L [facility] RDW Standard Deviation 44.9 37.0 - 46.0 fL [facility] RDW coefficient of variation 12.8 11.5 - 14.1 % [facility] Mean Platelet Volume 9.8 7.6 - 12.9 fL [facility] NRBC% auto 0.0 % [facility] NRBC Absolute 0.000 0.000 - 0.000 x10(3)/mc L [facility] Blood 05/10/2023 2:28 AM EDT 05/10/2023 2:57 AM EDT Narrative Resulting Agency Comment Spec In Lab Klaudia Reid MD HEMATOLOGY OR DERABLES Performing Organization Address City/State/[facility] Co de Phone Number [facility] [place] [address] * (ABNORMAL) Comprehensive metabolic panel (non-fasting) (05/10/2023 2:28 AM EDT) Glucose 100 65 - 199 mg/dL [facility] Comment:Diabetes: >=200 mg/d L plus symptoms Blood Urea Nitrogen 30(H) 8 - 18 mg/dL [facility] Creatinine 0.90 0.70 - 1.20 mg/dL [facility] Sodium 134(L) 135 - 145 mmol/L [facility] Potassium 4.1 3.5 - 5.0 mmol/L [facility] Comment: Please note: ??Patients with WBC >100,000 may have falsely elevated Potassium levels. ??For accurate Potassium quantification in these patients send serum separator tube (gold top) for subsequent determinations. ??Contact the Clinical Chemistry Laboratory if there are any questions. Chloride 102 98 - 107 mmol/L [facility] Carbon Dioxide 20(L) 22 - 31 mmol/L [facility] Anion Gap 12 5 - 15 mmol/L [facility] Calcium 9.3 8.5 - 10.5 mg/dL [facility] Protein, Total 6.4 6.1 - 8.0 g/dL [facility] Albumin 3.7 3.2 - 5.2 g/dL [facility] Aspartate Aminotransferase 24 0 - 30 unit/L [facility] Alanine Aminotransferase 14 0 - 30 unit/L [facility] Alkaline Phosphatase 70 35 - 105 unit/L [facility] Bilirubin, Total 0.5 0.2 - 1.3 mg/dL [facility] Est Glomerular Filtration Rate 70 >=60 mL/min/1. 73 m?? [facility] Comment: This patient's estimated GFR [...] Lab Radha Hollins MD CHEMISTRY ORDERABL ES [facility] [place] [address] * Heparin (unfractionated) Level (05/10/2023 2:28 AM EDT) UF Heparin 0.37 IU/mL [facility] Comment: Heparin (anti-Xa) levels [...] Lab Radha Hollins MD HEMATOLOG[place] [address] * (ABNORMAL) Differential, Automated (05/09/2023 4:00 AM EDT) Neutrophil % 81.7 % [facility] Neutrophil Absolute 5.26 1.70 - 6.10 x10(3)/mc L [facility] Lymph % 10.7 % [facility] Lymphocytes Abs 0.7(L) 0.9 - 3.2 x10(3)/mc L [facility] Monocyte % 6.5 % [facility] Monocyte Abs 0.4 0.3 - 0.9 x10(3)/mc L [facility] Eos % 0.5 % [facility] Eosinophils Abs 0.0 0.0 - 0.4 x10(3)/mc L [facility] Basophil % 0.3 % [facility] Baso Absolute 0.0 0.0 - 0.1 x10(3)/mc L [facility] Immature Gran % 0.30 % [facility] Comment: Immature granulocytes(IG's)percentage and absolute count will include metamyelocytes, myelocytes, and promyelocytes. Blood smears from CBCs yielding IG's will be scanned manually for concordance. If this scan disagrees with the automated IG or if promyelocytes are noted, a manual differential will be performed. Immature Gran Absolute 0.02 0.00 - 0.04 x10(3)/mc L [facility] Blood 05/09/2023 4:00 AM EDT 05/09/2023 4:19 AM EDT Narrative Resulting Agency Comment Spec In Lab Klaudia Reid MD HEMATOLOGY OR DERABLES Performing Organization Address City/[facility]/ZIP Co de Phone Number [facility] [place] [address] * (ABNORMAL) Hemogram (05/09/2023 4:00 AM EDT) White Blood Cell 6.4 4.0 - 9.5 x10(3)/mc L [facility] Red Blood Cell 3.15(L) 4.00 - 5.21 x10(6)/mc L [facility] Hemoglobin 10.2(L) 11.7 - 15.5 g/dL [facility] Hematocrit 30.3(L) 35.7 - 45.8 % [facility] Mean Cell Volume 96.2(H) 82.6 - 94.4 fL [facility] Mean Cell Hemoglobin 32.4(H) 27.1 - 32.0 pg [facility] Mean Cell Hemoglobin Concentration 33.7 31.7 - 35.0 g/dL [facility] Platelet 151 145 - 357 x10(3)/mc L [facility] RDW Standard Deviation 44.7 37.0 - 46.0 fL [facility] RDW coefficient of variation 12.8 11.5 - 14.1 % [facility] Mean Platelet Volume 9.4 7.6 - 12.9 fL [facility] NRBC% auto 0.0 % [facility] NRBC Absolute 0.000 0.000 - 0.000 x10(3)/ L [facility] Blood 05/09/2023 4:00 AM EDT 05/09/2023 4:19 AM EDT Narrative Resulting Agency Comment Spec In Lab Klaudia Reid MD HEMATOLOGY OR DERABLES Performing Organization Address City/State/[facility] Co de Phone Number [facility] [place] [address] * Heparin (unfractionated) Level (05/09/2023 4:00 AM EDT) UF Heparin 0.47 IU/mL [facility] Comment: Heparin (anti-Xa) levels [...] Lab Radha Hollins MD HEMATOLOGY ORDERAB LES [facility] [place] [address] * (ABNORMAL) Comprehensive metabolic panel (non-fasting) (05/09/2023 4:00 AM EDT) Glucose 108 65 - 199 mg/dL [facility] Comment:Diabetes: >=200 mg/d L plus symptoms Blood Urea Nitrogen 31(H) 8 - 18 mg/dL [facility] Creatinine 1.03 0.70 - 1.20 mg/dL [facility] Sodium 137 135 - 145 mmol/L [facility] Potassium 4.4 3.5 - 5.0 mmol/L [facility] Comment: Please note: ??Patients with WBC >100,000 may have falsely elevated Potassium levels. ??For accurate Potassium quantification in these patients send serum separator tube (gold top) for subsequent determinations. ??Contact the Clinical Chemistry Laboratory if there are any questions. Chloride 102 98 - 107 mmol/L [facility] Carbon Dioxide 20(L) 22 - 31 mmol/L [facility] Anion Gap 15 5 - 15 mmol/L [facility] Calcium 9.3 8.5 - 10.5 mg/dL [facility] Protein, Total 6.6 6.1 - 8.0 g/dL [facility] Albumin 3.8 3.2 - 5.2 g/dL [facility] Aspartate Aminotransferase 32(H) 0 - 30 unit/L [facility] Alanine Aminotransferase 18 0 - 30 unit/L [facility] Alkaline Phosphatase 78 35 - 105 unit/L [facility] Bilirubin, Total 0.5 0.2 - 1.3 mg/dL [facility] Est Glomerular Filtration Rate 60 >=60 mL/min/1. 73 m?? [facility] Comment: This patient's estimated GFR [...] ES Performing Organization Address [facility] Co de Phone Number [facility] [place] [address] * (ABNORMAL) pro-Brain Natriuretic Peptide (05/08/2023 4:00 PM EDT) NT-proBNP 25,503(H) <=124 pg/mL [facility] Blood Venous Draw / Unknown 05/08/2023 4:00 PM EDT 05/08/2023 4:25 PM EDT Narrative Resulting Agency Comment Spec In Lab Juan Luis Gonzalez MD CHEMISTRY ORDERABLES Performing Organization Address [facility] Co de Phone Number [facility] [place] [address] * Magnesium (05/08/2023 4:00 PM EDT) Magnesium 0.82 0.69 - 1.07 mmol/L [facility] Blood 05/08/2023 4:00 PM EDT 05/08/2023 4:06 PM EDT Narrative Resulting Agency Comment Spec In Lab Enrique Chua MD CHEMISTRY ORDERABLES Performing Organization Address [facility] Co de Phone Number [facility] [place] [address] * Potassium (05/08/2023 4:00 PM EDT) Potassium 3.9 3.5 - 5.0 mmol/L [facility] Comment: Please note: ??Patients with [...] ES Performing Organization Address [facility] Co de Phone Number [facility] [place] [address] * Heparin (unfractionated) Level (05/08/2023 4:00 PM EDT) UF Heparin 0.43 IU/mL [facility] Comment: Heparin (anti-Xa) levels should [...] LES Performing Organization Address [facility]/ZIP Co de Phone Number [facility] [place] [address] * EKG 12 Lead (05/08/2023 3:51 PM EDT) Ventricular rate 98 BPM MUSE SYSTEM Atrial Rate 98 BPM MUSE SYSTEM P-R Interval 150 ms MUSE SYSTEM QRS Duration 102 ms MUSE SYSTEM Q-T Interval 358 ms MUSE SYSTEM QTC Calculated (Bezet) 457 ms MUSE SYSTEM Calculated P [place] 38 degrees MUSE SYSTEM Calculated R [place] 48 degrees MUSE SYSTEM Calculated T [place] -112 degrees MUSE SYSTEM INTERPRETATION Sinus rhythm with frequent and consecutive Premature ventricular and fusion complexes Septal infarct , age undetermined ST & T wave abnormality, consider anterolateral ischemia Abnormal ECG When compared with ECG of 09-NOV-2022 11:17, T wave inversion now evident in Anterolateral leads Confirmed by MD Harshil, Enrique Blel ([id number]) on 05/10/2023 8:11:46 AM MUSE SYSTEM 05/08/2023 3:51 PM EDT 05/10/2023 8:11 AM EDT Radha Hollins MD ECG ORDERABLES MUSE SYSTEM * (ABNORMAL) Differential, Automated (05/08/2023 11:38 AM EDT) Pathologist [facility] Neutrophil % 71.3 % [facility] Neutrophil Absolute 2.91 1.70 - 6.10 x10(3)/mc L [facility] Lymph % 19.1 % [facility] Lymphocytes Abs 0.8(L) 0.9 - 3.2 x10(3)/mc L [facility] Monocyte % 9.0 % [facility] Monocyte Abs 0.4 0.3 - 0.9 x10(3)/mc L [facility] Eos % 0.2 % [facility] Eosinophils Abs 0.0 0.0 - 0.4 x10(3)/mc L [facility] Basophil % 0.2 % [facility] Baso Absolute 0.0 0.0 - 0.1 x10(3)/mc L [facility] Immature Gran % 0.20 % [facility] Comment: Immature granulocytes(IG's)percentage and absolute count will include metamyelocytes, myelocytes, and promyelocytes. Blood smears from CBCs yielding IG's will be scanned manually for concordance. If this scan disagrees with the automated IG or if promyelocytes are noted, a manual differential will be performed. Immature Gran Absolute 0.01 0.00 - 0.04 x10(3)/mc L [facility] Blood 05/08/2023 11:3 8 AM EDT 05/08/2023 11:44 AM EDT Narrative Resulting Agency Comment Spec In Lab Lincoln Sal MD HEMATOLOGY ORDERA BLES [facility] [place] [address] * (ABNORMAL) Hemogram (05/08/2023 11:38 AM EDT) White Blood Cell 4.1 4.0 - 9.5 x10(3)/mc L [facility] Red Blood Cell 3.05(L) 4.00 - 5.21 x10(6)/[facility] Hemoglobin 10.2(L) 11.7 - 15.5 g/dL [facility] Hematocrit 29.6(L) 35.7 - 45.8 % [facility] Mean Cell Volume 97.0(H) 82.6 - 94.4 fL [facility] Mean Cell Hemoglobin 33.4(H) 27.1 - 32.0 pg [facility] Mean Cell Hemoglobin Concentration 34.5 31.7 - 35.0 g/dL [facility] Platelet 136(L) 145 - 357 x10(3)/mc L [facility] RDW Standard Deviation 44.3 37.0 - 46.0 fL [facility] RDW coefficient of variation 12.6 11.5 - 14.1 % [facility] Mean Platelet Volume 9.4 7.6 - 12.9 fL [facility] NRBC% auto 0.0 % [facility] NRBC Absolute 0.000 0.000 - 0.000 x10(3)/mc L [facility] Blood 05/08/2023 11:3 8 AM EDT 05/08/2023 11:44 AM EDT Narrative Resulting Agency Comment Spec In Lab Lincoln Sal MD HEMATOLOGY ORDERA BLES Performing Organization Address City/[facility] Co de Phone Number [facility] [place] [address] * TSH (05/08/2023 11:38 AM EDT) Thyroid Stimulating Hormone 1.27 0.27 - 4.20 mcIU/mL [facility] Comment: Reference Interval (mcIU/mL): Females: ??First Trimester: 0.23-3.88 ??Second Trimester: 0.22-3.90 ??Third Trimester: 0.44-4.66 Blood 05/08/2023 11:3 8 AM EDT 05/08/2023 11:44 AM EDT Narrative Resulting Agency Comment Spec In Lab Enrique Chua MD CHEMISTRY ORDERABLES Performing Organization Address [facility] Co de Phone Number [facility] [place] [address] * (ABNORMAL) Phosphorus (05/08/2023 11:38 AM EDT) Phosphorus 4.7(H) 2.5 - 4.5 mg/dL [facility] Blood 05/08/2023 11:3 8 AM EDT 05/08/2023 11:44 AM EDT Narrative Resulting Agency Comment Spec In Lab nErique Chua MD CHEMISTRY ORDERABLES Performing Organization Address City/[facility] Co de Phone Number [facility] [place] [address] * Magnesium (05/08/2023 11:38 AM EDT) Magnesium 0.76 0.69 - 1.07 mmol/L [facility] Blood 05/08/2023 11:3 8 AM EDT 05/08/2023 11:44 AM EDT Narrative Resulting Agency Comment Spec In Lab Enrique Chua MD CHEMISTRY ORDERABLES Performing Organization Address City/[facility]/ZIP Co de Phone Number [facility] [place] [address] * (ABNORMAL) Basic Metabolic Panel (non-fasting) (05/08/2023 11:38 AM EDT) Glucose 97 65 - 199 mg/dL [facility] Comment:Diabetes: >=200 mg/d L plus symptoms Blood Urea Nitrogen 27(H) 8 - 18 mg/dL [facility] Creatinine 1.02 0.70 - 1.20 mg/dL [facility] Sodium 139 135 - 145 mmol/L [facility] Potassium 4.2 3.5 - 5.0 mmol/L [facility] Comment: Please note: ??Patients with WBC >100,000 may have falsely elevated Potassium levels. ??For accurate Potassium quantification in these patients send serum separator tube (gold top) for subsequent determinations. ??Contact the Clinical Chemistry Laboratory if there are any questions. Chloride 105 98 - 107 mmol/L [facility] Carbon Dioxide 20(L) 22 - 31 mmol/L [facility] Anion Gap 14 5 - 15 mmol/L [facility] Calcium 9.4 8.5 - 10.5 mg/dL [facility] Est Glomerular Filtration Rate 60 >=60 mL/min/1. 73 m?? [facility] Comment: This patient's estimated GFR [...] In Lab Enrique Chua MD CHEMISTRY ORDERABLES [facility] [place] [address] * ECHO COMPLETE (05/08/2023 11:02 AM EDT) EF 25 HEARTLAB SYSTEM Anatomical Region Laterality Modality Cardiac Other 05/08/2023 10:0 3 AM EDT Narrative 05/08/2023 11:51 AM EDT ? Echocardiogram Report Name: PURNIMA THACKER ?Study Date: 05/08/2023 10:03 AMBP: 92/64 mmHg ? Patient Location: [facility]^CV29^A : 1955 ? Height: 155 cm ? Account: [id number] Age: 67 yrs ? Weight: 78 kg Gender: Female ?BSA: 1.8 m2 Ordering Physician: ENRIQUE CHUA Referring Physician: MARIO ALBERTO CHIN Performed By: CHUCKIE Canchola Reason For Study: SAVR Stenosis Exam Location: [facility]. Interpretation Summary -Left ventricle is severely [...] worsening stenosis. Mitral regurgitation is similar. Procedure Complete-[id number]. Satisfactory quality. There is normal sinus rhythm. [...] Study Date: 0:03 AMBP: 92/64 mmHg Patient Location:[facility]^CV29^A : 1955 Height: 155 cm Account: [id number] Age: 67 yrs Weight: 78 kg Gender: Female BSA: 1.8 m2 Ordering Physician: ENRIQUE CHUA Referring Physician: MARIO ALBERTO CHIN Performed By: CHUCKIE Canchola Reason For Study: SAVR Stenosis Exam Location: [facility]. Interpretation Summary -Left ventricle is severely [...] suggestsworsening stenosis. Mitral regurgitation is similar. Procedure Complete-[id number]. Satisfactory quality. There is normal sinus rhythm. 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 Mild coronary artery disease by [facility] 11/09/2022 Mixed connective tissue disease Other [...] ejection fraction Mild coronary artery disease by [facility] 11/09/2022 Stenosis of prosthetic aortic valve [...] dose on Wed05/12/23 at 1030, Until Discontinued, [place] teeth, Routine Given 05/12/2023 10:04 AM EDT [...] at 0831, Side port TKO rate, per [facility] flush protocol Rate/Dose Verify 05/13/2023 6:00 AM EDT 10 mL/hr 10 mL/hr Rate/Dose Verify 05/13/2023 4:00 AM EDT 10 mL/hr 10 mL/h r Rate/Dose Verify 05/13/2023 2:00 AM EDT 10 mL/hr 10 mL/h r sodium chloride 0.9% infusion 10-30 mL/hr, Intravenous, DAILY PRN, Starting on Wed05/12/23 at 0944, Until Wed05/17/23 at 0831, Side port TKO rate, per [facility] flush protocol. Rate/Dose Verify 05/17/2023 [...] 1758 (New Bag - Provider: Gabino Calhoun, AVLDO)1958 (Stopped - Provider: Favian Mckeon RN) magnesium [...] 08 (See Alternative - Provider: Kia Gallego, VALOD) pantoprazole EC (Protonix) tablet 40 mg(Linked Group [...] Routine documented in this encounter Care Teams Acoustic Sensor Operator Relationship Specialty Start Date End Date Magdalena Acosta MD [address] [place] [address] PCP - General Family Medicine 02/05/23 documented as of this encounter
--- OUTSIDE RECORDS SUMMARY | 2024-06-15 14:11 | XMS_ITS | Encounter Summary ---
Author Organization [facility] Erika [facility] [place] [address] Care Team Providers Care Studio Potter Name Role Phone Magdalena Acosta MD Primary Care Provider [phone] Encounter Details Date Type Department Care Team [...] Visit Hematology and Oncology at [place] [id number] Markel Borjas MD [address] [place] [address] 11/02/2024 12:00 PM EDT Appointment [place] [address] 11/02/2024 1:00 PM EDT Office [place] [address] Magdalena Peralta MD [facility] [address] [place] [address] 03/01/2025 4:15 PM EDT Office Visit Dermatology at [place] [address] [place] [id number] Marek Bonilla MD [address], [place] [address] documented as of this encounter Visit Diagnoses Not on filedocumented in this encounter Care Teams Studio Potter Relationship Specialty Start Date End Date Magdalena Acosta MD [address] [place] [address] PCP - General Family Medicine 02/05/23 documented as of this encounter
--- OUTSIDE RECORDS SUMMARY | 2024-06-15 14:11 | XMS_ITS | Encounter Summary ---
Author Organization [facility] Address [facility] [place] [address] Care Team Providers Care Nuclear Power Reactor Operator Name Role Phone Magdalena Acosta MD Primary Care Provider [phone] Encounter Details Date Type Department Care Team (Late st Contact Info) Description 04/27/2023 3:00 PM EDT Office [place] [address] Magdalena Peralta MD [address] [place] [address] Mixed connective tissue disease Social History Tobacco [...] 1:5120 speckled; VIC negative; Myositis panel with INSTRUCTIONAL SUPPORT SPECIALIST ab 149.1 (positive); Anti U1RNP IgG [...] MD Rheumatology Fellow Pager: [phone] * Nitesh Gonazles II, DO - 04/27/2023 3:00 PM EDT [...] EST Office Visit H[place] [address] Markel Borjas MD [facility] [address] [facility] HEMATOLOGY [place] [address] 11/02/2024 12:00 PM EDT Appointment [place] [address] 11/02/2024 1:00 PM EDT Office [place] [address] Magdalena Peralta MD [facility] [address] [address] [place] [address] 03/01/2025 4:15 PM EDT Office Visit Dermatology at [place] [address] [place] [address] Marek Bonilla MD [address] [place] [address] documented as of this encounter Visit Diagnoses Diagnosis Mixed connective tissue disease Other specified diffuse disease of connective tissue documented in this encounter Care Teams Nuclear Power Reactor Operator Relationship Specialty Start Date End Date Magdalena Acosta MD [address] [place] [address] PCP - General Family Medicine 02/05/23 documented as of this encounter
--- OUTSIDE RECORDS SUMMARY | 2024-06-15 14:11 | XMS_ITS | Encounter Summary ---
Author Organization [facility] [place] [address] Care Team Providers Care Pulmonary Function Technologist Name Role Phone Magdalena Acosta MD Primary Care Provider [phone] Encounter Details Date Type Department Care Team (Late st Contact Info) Description 05/08/2023 [place] [phone] Luis Felipe Ott MD [facility] [id number] Social History Tobacco Use Types Packs/Day Years [...] 0426 Referring Provider: Nitesh Baltazar Patient Location: [facility] Presenting Symptoms per OSH: [...] diuresis with IV furosemide 20 x 1 ([id number] at rheumatology appointment), SpO2 85% on RA -> 95% on 2L NC, HR 120s. Examination significant for decreased breath sounds at the bases. Pertinent Diagnostic Findings: CBC - Hgb 10.5 CMP - Cr 1.1 BNP 79329 HsTrop 1358 Lactate 1.6 D-dimer 1183, CTPE pending CXR demonstrated pulmonary vascular congestion US showed bilateral b lines Bedside echo reportedly similar to prior TTE for LV function OSH Interventions: ASA 324 Heparin gtt Plan: Transfer [place] [facility] Above recommendations/plans are based on my conversation with the referring provider. I have not personally interviewed or examined this patient. Luis Felipe Ott MD [employer] Received a call from provider emergently at 715am. Mentating well and BP 87/53. HR 108 and diursingwell. They were about to start phenylephrine which I stressed was not a good option given concern for severe and increasing afterload. She is warm on exam, mentating and urinating and we do not need to amrit a BP if those things remain stable. Nico Segura, PGY-6 [employer] [id number] documented in this encounter Plan of Treatment Upcoming Encounters Date Type Department Care Team (Late st Contact Info) Description 06/23/2024 2:00 PM EST Office Visit Hematology [place] [address] Markel Borjas MD [facility] DR HEMATOLOGY [place] [address] 11/02/2024 12:00 PM EDT Appointment [place] [phone] 11/02/2024 1:00 PM EDT Office [place] [address] Magdalena Peralta MD [facility] [place] [address] 03/01/2025 4:15 PM EDT Office Visit Dermatology at [place] [address] [facility] [place] [phone] Marek Bonilla MD [address] [facility] [address] [place] [address] documented as of this encounter Visit Diagnoses Not on filedocumented in this encounter Care Teams Pulmonary Function Technologist Relationship Specialty Start Date End Date Magdalena Acosta MD [address] [place] [address] PCP - General Family Medicine 02/05/23 documented as of this encounter
--- OUTSIDE RECORDS SUMMARY | 2024-06-15 14:11 | XMS_ITS | Encounter Summary ---
Author Organization [facility] [place] [address] Care Team Providers Care Analytics Specialist Name Role Phone Magdalena Acotsa MD Primary Care Provider [phone] Reason for Visit * Auth/Cert (Routine) Specialty Diagnoses / Procedures Referred By Contac t Referred To Contact Diagnoses Symptomatic severe aortic stenosis with low ejection fraction NSTEMI, CHF Enrique Chua MD [facility] [place] [address] [facility] Referral ID Status Reason Start Date Expiration Date Visits Re quested Visits Authorized [id number] 1 1 Encounter Details Date Type Department Care Team (Late st Contact Info) Description 05/12/2023 2:50 PM EDT - 05/12/2023 3:50 PM [place] [address] Antelmo Sharma MD [facility] [place] [address] CARDIAC CATHETERIZATION Social History Tobacco Use Types [...] Patient Age: 67 y.o. Birthdate: 1955 Language: Mozambican Race: White Ethnicity: Not nor Admit Date: 05/08/2023 Discharge Date: 05/22/2023 Attending Physician: Alirio Hudson MD Follow-up Recommendations for Providers: Please continue routine management of cardiovascular risk factors including blood pressure, lipids,glucose, etc. Please note any medication changes. Patient to follow up with PCP, Magdalena Acosta MD, or Primary Gold And Silver Assayer, Avis Mejia MD, in ~ 7-10 days. Patient to follow up with Harp Maker, Dr. Antelmo Sharma, in 2 weeks with an EKG, Echo, CBC, and CMP. Patient to follow up with Nephrology, their office to arrange. Ceie-Mucdxf-ot interval: After initial 30 day follow-up appointment , all TAVR patients will follow-up again in one year with an echo. 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 Secondary Diagnoses: Active Hospital Problems Diagnosis S/P TAVR (transcatheter aortic valve replacement) Cardiogenic shock Symptomatic severe aortic stenosis with low ejection fraction Mild coronary artery disease by [facility] 11/09/2022 Heart failure with reduced [...] Tube Placement Right 05/18/2023 Laure Ricks PA [facility] INTERVENTIONL RAD PRG CATH PLMT LEFT HEART CATH & ARTS W/INJ & ANGIO IMG S&I N/A 11/09/2022 CORONARY ANGIOGRAPHY; W [facility],POSSIBLE PCI (WRVU 5.6) performed by Mario Alberto Escobedo MD at [facility] CATH LABS PRG COMBINED RIGHT & LEFT HEART CATH W/INJ L VENTRICULOGRAPHY, IMG S&I N/A 05/12/2023 COMBINED RIGHT & LEFT HEART CATH,INC INJ FOR L VENTRICULOGRAPHY (WRVU 5.99) performed by Antelmo Sharma MD at [facility] CATH LABS PRO AORTOPLAS FOR SUPRAVALV STEN N/A 09/21/2016 @AORTOPLASTY FOR SUPRAVALVULAR STENOSIS (WRVU 29.33) performed by Alirio Hudson MD at [facility] MAIN OR PRO REPLACE AORTIC VALVE (TAVR/FEDERICO)PERC FEMORAL ARTERY APPROACH 05/12/2023 @TRANSCATHETER AORTIC VALVE REPLACEMENT (TAVR), PERCUTANEOUS FEMORAL (WRVU 22.47) performed by Alirio Hudson MD at [facility] CATH LABS PRO REPLACEMENT PROSTHETIC AORTIC VALVE OPEN W CARDIOPULMONARY BYPASS HOMOGRF/STENT N/A 09/21/2016 @REPLACE AORTIC VALVE, OPEN, W\CPB, W\PROSTHETIC VALVE (WRVU 41.32) performed by Alirio Hudson MD at [facility] MAIN OR Prior To Admission [...] Major Procedures/Operations: 05/12/23: Successful right transfemoral TAVR Uraal-vy-Ehcni with a 23 mm Lai 3 THV. Left coronary protection with left main MINNA. Hospital Course: #Severe prosthetic s/p valve in valve TF TAVR #Low coronary heights s/p left main stent for coronary protection #Type 2 NSTEMI, present on arrival, resolved #Acute decompensated HFrEF #Cardiogenic shock #EVANS / Cardiorenal syndrome Purnima Thacker was admitted to [facility] on 05/08/2023 via the Cardiology Service [...] if you have questions. Please call your Harp Maker's office if you have any discharge or drainage from your procedural sites. Your Harp Maker, Dr. Antelmo Sharma and/or the Generator Operator may be reached at . Antibiotic prophylaxis: You will need to take antibiotics prior to many invasive tests and treatments, such as dental cleaning, which should be done every 6 months. Your primary care physician or your dentist can prescribe this medication. Please refer to the card with the [employer] Guidelines for more information. You have been provided with a copy of this card. Please refer to the [employer] Guidelines for more information. Good [...] should resume a low fat, low cholesterol, [employer] Heart [employer] Diet Driving: No restrictions. Shower/Bath: You may shower daily. No baths, soaking, or swimming for the first week. Wound care: Wash the sites daily with soap and rinse well, pat dry. Assess for any signs of infection such as increased redness, pain, warmth or drainage. Please call your signal mechanic's office if you have any discharge or drainage from your procedural sites. If there is a lot of swelling, apply mamta wraps during the day and remove at bedtime. Elevate your legs when you are sitting. Home oxygen therapy: N/A Follow up appointments: Please schedule a follow-up appointment with your PCP, Magdalena Acosta MD, or Primary Gold And Silver Assayer in ~ 7-10 days. You have a follow-up appointment with your Harp Maker, Dr. Antelmo Sharma, in 2 weeks with an EKG, Echo, and labs prior to your appointment. You will need follow-up with Nephrology, their office will arrange. Njgt-Tpggyn-rl interval: After initial 30 day follow-up appointment [...] Magdalena Peralta MD Rheumatology at [facility] Arrive at: [facility] [phone] 02/11/2024 2:00 PM Marek Bonilla MD Dermatology at [place] Arrive at: [facility] [address] [phone] Future Orders Complete By Expires Type and Screen Future Surgery, [facility] SAME DAY PROGRAM ONLY) [[id number] Custom] 05/11/2023 Process Instructions: This test is intended ONLY for patients with upcoming surgery for testing prior to the day of surgery obtained through the same day program (4V or SDP). For ALL OTHER PATIENTS, order a Type and Screen (QVY426) This order includes the physician order for an ABO Recheck if requested by the Blood Bank. Scheduling Instructions: Comments: Questions: Date of surgery: CBC (with Diff) [OYT206 Custom] 06/05/2023 12/05/2023 Process Instructions: INCLUDES: WBC, RBC, Hgb, Hct, Platelets, RBC Indices and Differential Scheduling Instructions: Comments: Questions: Comprehensive metabolic panel (non-fasting) [LAB17 Custom] 06/05/2023 08/20/2023 Process Instructions: INCLUDES: Calcium, T Protein, Albumin, AST, ALT, Alk Phos, T Bili, BUN, Creat, GFR, Glucose, Lytes. Scheduling Instructions: Comments: Questions: Echocardiogram Transthoracic [44443 CPT(R)] 06/05/2023 12/05/2023 Process Instructions: Scheduling Instructions: Questions: Where will study be performed?: [facility] Clinics Does the patient have Congenital Heart Disease?: Does patient require sedation?: GA rationale: EKG 12 Lead [20603 CPT(R)] 06/05/2023 12/05/2023 Process Instructions: Scheduling Instructions: Questions: Which location will this be performed?: [place] Is a rhythm strip needed?: No [employer] Devices [EQ161 Custom] As directed Process Instructions: Scheduling Instructions: Questions: Device Needed: WALKER (E0143) Patient Height (cm): 154.9 cm (5' 0.98) Patient Weight: 75.4 kg (166 lb 3.2 oz) Diagnosis: Unsteady gait when walking Referral to Cardiac Rehab [KCH257 Custom] As directed Process Instructions: If no [...] FOR VNA SERVICES PATIENT'S LOCATION: Purnima Thacker [address] [place] [address] [phone] (home) Machine Designer's Name: Irineo and brother Raymond In discussion with the attending physician, it is certified that this patient is under his/her careand that MD, or an POLE SETTER, MANAGER FURNITURE, or PA who is working directly with him/her, had a cjnt-gq-sdni encounter that meets the physician ibyh-vo-rjbd encounter requirements with this patient on 05/22/2023. [...] for managing ADLs. HOME HEALTH CARE AGENCY: [facility]. [address] [facility] [address] PHONE: [phone] FAX: [phone] Start of care: Ideally 24-48 hours after [...] patient's PCP: Magdalena Acosta MD [address] [facility] [phone] All VNA agencies which cover the area of patient's residence have been reviewed, either verbally joao writing, and patient has chosen the home health care agency noted. Questions: Disciplines Requested: Physical Therapy Occupational Therapy Discharge References/Attachments None Arrangements for VNA/home care: As above. (delete if no VNA) Signed: EKATERINA NAVARRETE [facility] Section of Cardiac Surgery Date: 05/22/2023 CC: Magdalena Acosta MD [place] Alberto maxwell MD [address] [place] [address] [place] [address] documented in this encounter Discharge Instructions * Patient Instructions* Vinod Juárez PA - 05/22/2023 9:32 AM EDT TAVR Discharge Instructions: Call your doctor if: You have a fever of greater than 101 degrees, shaking chills, if you develop redness or drainage from your procedure sites, or if you have questions. Please call your Harp Maker's office if you have any discharge or drainage from your procedural sites. Your Harp Maker, Dr. Antelmo Sharma and/or the Generator Operator may be reached at . Antibiotic prophylaxis: You will need to take antibiotics prior to many invasive tests and treatments, such as dental cleaning, which should be done every 6 months. Your primary care physician or your dentist can prescribe this medication. Please refer to the card with the [employer] Heart Association Guidelines for more information. You have been provided with a copy of this card. Please refer to the [employer] Heart [employer] Guidelines for more information. Good [...] should resume a low fat, low cholesterol, [employer] Heart Association Diet Driving: No restrictions. Shower/Bath: You may shower daily. No baths, soaking, or swimming for the first week. Wound care: Wash the sites daily with soap and rinse well, pat dry. Assess for any signs of infection such as increased redness, pain, warmth or drainage. Please call your signal mechanic's office if you have any discharge or drainage from your procedural sites. If there is a lot of swelling, apply mamta wraps during the day and remove at bedtime. Elevate your legs when you are sitting. Home oxygen therapy: N/A Follow up appointments: Please schedule a follow-up appointment with your PCP, Magdalena Acosta MD, or Primary Gold And Silver Assayer in ~ 7-10 days. You have a follow-up appointment with your Harp Maker, Dr. Antelmo Sharma, in 2 weeks with an EKG, Echo, and labs prior to your appointment. You will need follow-up with Nephrology, their office will arrange. Zmwu-Urgexy-ac interval: After initial 30 day follow-up appointment [...] ins ( tef) Haven Ba, PT Pager: [phone] Physical Therapy Inpatient Rehabilitation Department * Nico [...] 0600 and on the weekends please page [phone]. * Jory Paniagua - 05/20/2023 3:52 PM [...] vomiting Last Bowel Movement: 05/20/23 Jory Paniagua Optoelectronic Technician * Tong Mike, OT - 05/20/2023 [...] Tube Placement Right 05/18/2023 Laure Ricks PA [facility] INTERVENTIONL RAD PRG CATH PLMT LEFT HEART CATH & ARTS W/INJ & ANGIO IMG S&I N/A 11/09/2022 CORONARY ANGIOGRAPHY; W [facility],POSSIBLE PCI (WRVU 5.6) performed by Mario Alberto Escobedo MD at [facility] CATH LABS PRG COMBINED RIGHT & LEFT HEART CATH W/INJ L VENTRICULOGRAPHY, IMG S&I N/A 05/12/2023 COMBINED RIGHT & LEFT HEART CATH,INC INJ FOR L VENTRICULOGRAPHY (WRVU 5.99) performed by Antelmo Sharma MD at [facility] CATH LABS PRO AORTOPLAS FOR SUPRAVALV STEN N/A 09/21/2016 @AORTOPLASTY FOR SUPRAVALVULAR STENOSIS (WRVU 29.33) performed by Alirio Hudson MD at [facility] MAIN OR PRO REPLACE AORTIC VALVE (TAVR/FEDERICO)PERC FEMORAL ARTERY APPROACH 05/12/2023 @TRANSCATHETER AORTIC VALVE REPLACEMENT (TAVR), PERCUTANEOUS FEMORAL (WRVU 22.47) performed by Alirio Hudson MD at [facility] CATH LABS PRO REPLACEMENT PROSTHETIC AORTIC VALVE OPEN W CARDIOPULMONARY BYPASS HOMOGRF/STENT N/A 09/21/2016 @REPLACE AORTIC VALVE, OPEN, W\CPB, W\PROSTHETIC VALVE (WRVU 41.32) performed by Alirio Hudson MD at [facility] MAIN OR Social History: Patient lives alone. Home Setup: Pt lives on one level with tub shower and three steps to enter. DME: none used SKI LIFT ATTENDANT Baseline ADL/Mobility: Independent with ADLs and IADLs. [...] Discharge Disposition (OT): swing bed rehabilitation facility, fpc facility(vs home with support for IADLs) Other [...] Discharge planning. Total Minutes, Occupational Therapy: 28 ([id number]) OT Evaluation Code Rationale: Diagnosis & Pertinent Co-Morbidities affecting Plan of Care: see PMHx Occupational Profile & Client History: Brief Expanded Extensive x Assessment of Occupational Performance: 1-3 performance deficits 3-5 performance deficits x 5 + performance deficits Clinical Decision Making: Low Moderate High x Clinical decision making of moderate complexity using standardized patient assessment instrument and measurable assessment of functional outcome. Pager: [phone] TONG MIKE OT 05/20/2023 Occupational Therapy Rehabilitation [...] 0600 and on the weekends please page [phone]. * Rylie Rodriguez MD - 05/19/2023 3:59 [...] and plan. Cynthia Blackburn MD Nephrology Pager: [phone] * Diana Espino - 05/19/2023 1:49 PM EDT Supervisor Special Services Encounter Note Patient Name: Purnima Thacker : [id number] MR#: [id number] Admit Date: 05/08/2023 9:14 AM Hospital Day [...] returning home alone. Anticipated Discharge Disposition (PT): fpc facility, swing bed rehabilitation facility Consult Recommendations: [...] as stated. Total Minutes, Physical Therapy: 38 ([phone]) Henrik Navarrete PTA Pager: [phone] Physical Therapy Inpatient Rehabilitation Department * Nico [...] 0600 and on the weekends please page [phone]. * Laure Ricks PA - 05/19/2023 7:56 [...] of : 1955 AGE: 67 y.o. Address: [address] [place] [phone] (home) Mobile: No relevant phone numbers on [...] fraction I35.0 Mild coronary artery disease by [facility] 11/09/2022 I25.10 Heart failure with [...] and plan. Cynthia Blackburn MD Nephrology Pager: [phone] * Magdalena Puri, PROCEDURE MANAGER - 05/18/2023 10:51 AM EDT Images from the original note were not included. [facility] [place] [address] [address] STRUCTURAL HEART DISEASE CONSULTATION NOTE PRIMARY CARE [...] stenosis. She is now status post TAVR Uezeq-hf-Habux with a 23 mm Lai 3 THV 05/12/[address] Sharma. Preliminary findings: Successful right transfemoral TAVR Siacy-yh-Vxobe with a 23 mm Lai 3 THV. [...] ejection fraction Mild coronary artery disease by [facility] 11/09/2022 Heart failure with reduced [...] stenosis. She is now status post TAVR Uyjcu-kk-Orbwb with a 23 mm Lai 3 THV 05/12/[address] Sharma. Janet TAVR case notable for coronary LAD protective MINNA. Status post TAVR, the patient was transferred to [facility] for pressor and inotropic support. Pressors [...] Magdalena Puri APRN Structural Heart Team Pager [phone] Team Office Please see addendum by Dr. Sharma for final plan and recommendations Associated attestation - Antelmo Sharma MD - 05/19/2023 10:52 PM EDT I have reviewed Magdalena Puri APRN's above history and I agree with the details as written. The assessment and plan were formulated in discussion with me and I agree with them as documented. Antelmo Sharma MD Pager [phone] * Nico Palacios PA - 05/18/2023 8:13 [...] 0600 and on the weekends please page [phone]. * Loli Hernandez, PT - 05/17/2023 5:27 [...] returning home alone. Anticipated Discharge Disposition (PT): fpc facility, swing bed rehabilitation facility Consult Recommendations: [...] plan as stated. Time IN / OUT: 1268-1450 Total Minutes, Physical Therapy: 54 Billing Code: te-sx2, te-f, angely HERNANDEZ PT Pager: [phone] Physical Therapy Inpatient Rehabilitation Department * Cynthia [...] Well controlled. Cynthia Blackburn MD Nephrology Pager: [phone] * Maggie, Mara, ANURAG - 05/17/2023 8:26 [...] 0600 and on the weekends please page [phone]. * CurtistierneymeccaGuerda C - 05/16/2023 10:44 AM EDT Nutrition Services Note - Low Nutrition Acuity Purnima Thacker is a 67 y.o. female Reason for intervention: hospital day 9 Nutrition Plan: Continue diet order Encourage good PO Lasix and Zofran noted Added special serve: open containers Monitor weight Patient scheduled for a hospital day 9 nutrition evaluation. Poultry Scientist met with pt at bedside. Pt reports that her appetite and PO has much improved since admission. Denies nausea/vomiting or trouble chewing/swallowing. Poultry Scientist provided snack list but pt not interested in adding snacks at this time. Her only concern was that she is worried that she will eat too much which will cause too much pressure in her stomach. Poultry Scientist assured pt and suggested eating smaller but [...] Last Bowel Movement: 05/10/23 Guerda Del Valle Optoelectronic Technician * Vinod Juárez PA - 05/16/2023 [...] 0600 and on the weekends please page [phone]. * Michael Jeffers MD - 05/16/2023 8:11 AM EDT Images from the original note were not included. Hypertension-Nephrology Inpatient Follow-up Purnima Thacker [id number] 1955 ID: 67 y.o. old female seen [...] IRONSAT 12 (L) 05/16/2023 SFOLATE >20.0 07/03/2022 [id number] 07/03/2022 Lab Results Component Value Date [...] Dr. Ayoub. Please contact me at phone: [phone] or pager: [phone] with any questions. Michael Jeffers MD Nephrology [...] -Nephrology consulted, labs and renal US ordered -Kake removed, ambulated around the unit -bilateral pleural [...] 0600 and on the weekends please page [phone]. * Hortencia Cody MD - 05/15/2023 2:07 [...] not included. Hypertension-Nephrology Inpatient Follow-up Purnima Thacker [id number] 1955 ID: 67 y.o. old female seen [...] HGB 7.8 (L) 05/13/2023 SFOLATE >20.0 07/03/2022 [id number] 07/03/2022 Lab Results Component Value Date [...] Dr. Ayoub. Please contact me at phone: [phone] or pager: [phone] with any questions. Michael Jeffers MD Nephrology [...] last 720 hours. T/L/D Art ETT CVL [place]ell ASSESSMENT, MANAGEMENT, and DECISION MAKIN y.o. female [...] outlined inthis evaluation. HAVEN BA, PT Pager: [phone] Physical Therapy Inpatient Rehabilitation Department Time IN / OUT: 7375-6772 Total time: Total Minutes, Physical Therapy: 30 [...] 0600 and on the weekends please page [phone]. * Antelmo Sharma MD - 05/14/2023 7:56 AM EDT Images from the original note were not included. [facility] [address] [place], [place] [address] STRUCTURAL HEART DISEASE CONSULTATION NOTE PRIMARY CARE [...] stenosis. She is now status post TAVR Cwezf-sa-Dctqp with a 23 mm Lai 3 THV 05/12/[address] Sharma. Preliminary findings: Successful right transfemoral TAVR Dftcj-uc-Qshoq with a 23 mm Lai 3 THV. [...] ejection fraction Mild coronary artery disease by [facility] 11/09/2022 Heart failure with reduced [...] stenosis. She is now status post TAVR Pfhwy-fr-Ujkbr with a 23 mm Lai 3 THV 05/12/[address] Sharma. Janet TAVR case notable for coronary LAD protective MINNA. Status post TAVR, the patient was transferred to [facility] for pressor and inotropic support. Pressors [...] Brody Kaplan APRN Structural Heart Team Pager [phone] Team Office Please see addendum by Dr. [...] exposure. Nephrology consultationtoday. Antelmo Sharma MD Pager [phone] * Antelmo Cardenas RN - 05/14/2023 5:18 AM EDT Pt AOx4, complaining of mild/moderate generalized pain (states her Meloxicam is effective at home) currently refusing prn oxycodone. NAEON, hemodynamically stable on Milrinone, Maps >65, ST in twf403's down to NSR with frequent multifocal PVC's. [...] from the original note were not included. [facility] [place] [address] STRUCTURAL HEART DISEASE PROGRESS NOTE PRIMARY CARE [...] stenosis. She is now status post TAVR Yphum-xs-Ibolu with a 23 mm Lai 3 THV 05/12/[address] Sharma. Preliminary findings: Successful right transfemoral TAVR Jklns-zu-Fkmjr with a 23 mm Lai 3 THV. [...] or perforation. Interval Events: - Transferred to [facility] post- TAVR for pressor/inotropic support (Levo, [...] ejection fraction Mild coronary artery disease by [facility] 11/09/2022 Heart failure with reduced [...] stenosis. She is now status post TAVR Hdivm-mc-Jkfpz with a 23 mm Lai 3 THV 05/12/[address] Sharma. Janet TAVR case notable for coronary LAD protective MINNA. Status post TAVR, the patient was transferred to [facility] for pressor and inotropic support. Pressors [...] Brody Kaplan APRN Structural Heart Team Pager [phone] Team Office Please see addendum by Dr. [...] DAPT moving forward. Antelmo Sharma MD Pager [phone] * KaBonita stewart PA - 05/13/2023 8:30 [...] soft b/l, no evidence of hematoma. Tubes/Lines/Drains: Kake, RIJ, A-line, Art, PIV Assessment/Plan: 67 y.o. [...] 0600 and on the weekends please page [phone]. * Onelia Schwartz MD - 05/12/2023 1:44 [...] ejection fraction Mild coronary artery disease by [facility] 11/09/2022 Heart failure with reduced [...] FiO2 weaned to 40%. 1105: ABG 7.34/42/73/22 5630-4708: SBT performed and passed on these settings [...] PCP: Magdalena Acosta MD PCP phone number: [phone] Date of Admission: 05/08/2023 ( Hospital Day [...] 0705/12/2331705/12/2310505/11/23193905/11/231446 PHART -- 7.34* 7.34* -- -- CII4OFP -- 30* 30* -- -- PO2ART -- 72* 81* -- -- ECX1NSS -- 16.0* 15.7* -- -- LACTATEVEN 2.4* 2.7* 2.7* 4.8* 2.9* VBG (Venous Blood Gas) Recent Labs 05/12/23 0700 05/12/2331705/12/2310505/11/23193905/11/231446 LACTATEVEN 2.4* 2.7* 2.7* 4.8* 2.9* Mixed Venous Sat Recent Labs 05/12/23 0508 05/12/23 0321 05/12/23 0114 05/12/23 0030 [id number] 30.7 32.7 37.3 25.1 Objective: Vitals Last [...] questions please contact the health respiratory care faculty that requested your imaging first. Cardiac for [...] questions please contact the health respiratory care faculty that requested your imaging first. Electronically signed by: Cullen Narayanan MD, [facility] ([phone]), at 05/11/2023 4:[address] Angiogram Abdomen [...] questions please contact the health respiratory care faculty that requested your imaging first. Chest One [...] questions please contact the health respiratory care faculty that requested your imaging first. Chest One [...] questions please contact the health respiratory care faculty that requested your imaging first. Assessment & [...] and inotrope. She is planned for a owcdj-yj-uqlyt TAVR this morning, which should hopefully improve [...] MD, FACP, FACC Section of Cardiovascular Medicine [facility] Machine Plate Stackermold cleaning and storage supervisor [facility] of Medicine at [facility] * Noreen Deutsch RN - 05/12/2023 5:21 [...] @ 0.08 Levophed @ 5 * Noreen Detusch RN - 05/12/2023 2:24 AM EDT 05/12/23 [...] pulmonary edema. Patient seen and examined. Purnima Tahcker is a 67 y.o. female has issues that include: Active Hospital Problems Diagnosis Cardiogenic shock Symptomatic severe aortic stenosis with low ejection fraction Mild coronary artery disease by [facility] 11/09/2022 Heart failure with reduced [...] 05/11/2023 4:11 PM EDT Reported off to LIGHTOUT EXAMINER and pt transferred over in the bed for higher level of care. * Antelmo Sharma MD - 05/11/2023 9:45 AM EDT Images from the original note were not included. [facility] [place] [id number] STRUCTURAL HEART DISEASE CONSULTATION NOTE PRIMARY CARE [...] who had been referred for possible TAVR povnx-sf-rmnll evaluation. Her primary symptoms are of dyspnea [...] [facility]. 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 [...] ejection fraction Mild coronary artery disease by [facility] 11/09/2022 Heart failure with reduced [...] whole blood, send to lab ([facility]) Result Value Ref Range Lactate WB 3.1 (H) 0.5 - 2.2 mmol/L Heparin (unfractionated) Level Result Value Ref Range Heparin UFH Level 0.46 IU/mL Lactate, whole blood, send to lab ([facility]) Result Value Ref [...] leads Confirmed by MD Harshil, Enrique Bell ([id number]) on 05/10/2023 8:11:46 AM Cardiac Cath 11/09/2022 [...] HFrEF, she was transferred to [facility] this afternoon for further management. TAVR CT imaging support for adequate ileofemoral access. Given her acute deterioration today, will planfor RTF TAVR on 05/12/2023. Brody Kaplan APRN Structural Heart Disease Pager [phone] Please see addendum by Dr. Sharma for [...] signed and dated. Antelmo Sharma MD Pager [phone] * Harini Lance MD - 05/11/2023 6:06 AM EDT Images from the original note were not included. Cardiology Progress Note Patient info: Name: Purnima Thacker : 1955 PCP: Magdalena Acosta MD PCP phone number: [phone] Date of Admission: 05/08/2023 ( Hospital Day [...] questions please contact the health respiratory care faculty that requested your imaging first. : 05/08 [...] 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) Mild coronary artery disease by [facility] 11/09/2022 Hyperlipidemia, unspecified NICOLAS (obstructive [...] PCP: Magdalena Acosta MD PCP phone number: [phone] Date of Admission: 05/08/2023 ( Hospital Day [...] 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) Mild coronary artery disease by [facility] 11/09/2022 Hyperlipidemia, unspecified NICOLAS (obstructive [...] PCP: Magdalena Acosta MD PCP phone number: [phone] Date of Admission: 05/08/2023 ( Hospital Day [...] Gas) No results found for: PHART, PO2ART, QCU8CGR, EIY0GCN Microbiology: Microbiology Results (Last 30 days) No [...] Daily Healthy Menu Choices/Cardiac diet ([facility]) Lines: Peripheral IV Line - Single Lumen [...] 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) Mild coronary artery disease by [facility] 11/09/2022 Hyperlipidemia, unspecified NICOLAS (obstructive [...] fraction I35.0 Mild coronary artery disease by [facility] 11/09/2022 I25.10 Heart failure with reduced ejection fraction due to heart valve disease I50.20, I38 Cardiogenic shock R57.0 S/P TAVR (transcatheter aortic valve replacement) Z95.2 Past Medical History: Diagnosis Date Anemia Past Surgical History: Procedure Laterality Date PRG CATH PLAL LEFT HEART CATH & ARTS W/INJ & ANGIO IMG S&I N/A 11/09/2022 CORONARY ANGIOGRAPHY; W [facility],POSSIBLE PCI (WRVU 5.6) performed by Mario Alberto Escobedo MD at [facility] CATH LABS PRO AORTOPLAS FOR SUPRAVALV STEN N/A 09/21/2016 @AORTOPLASTY FOR SUPRAVALVULAR STENOSIS (WRVU 29.33) performed by Alirio Hudson MD at [facility] MAIN OR PRO REPLACEMENT PROSTHETIC AORTIC VALVE OPEN W CARDIOPULMONARY BYPASS HOMOGRF/STENT N/A 09/21/2016 @REPLACE AORTIC VALVE, OPEN, W\CPB, W\PROSTHETIC VALVE (WRVU 41.32) performed by Alirio Hudson MD at [facility] MAIN OR Social History and [...] fraction I35.0 Mild coronary artery disease by [facility] 11/09/2022 I25.10 Heart failure with reduced ejection fraction due to heart valve disease I50.20, I38 Cardiogenic shock R57.0 S/P TAVR (transcatheter aortic valve replacement) Z95.2 Past Medical History: Diagnosis Date Anemia Past Surgical History: Procedure Laterality Date PRG CATH [facility] LEFT HEART CATH & ARTS W/INJ & ANGIO IMG S&I N/A 11/09/2022 CORONARY ANGIOGRAPHY; W [facility],POSSIBLE PCI (WRVU 5.6) performed by Mario Alberto Escobedo MD at [facility] CATH LABS PRO AORTOPLAS FOR SUPRAVALV STEN N/A 09/21/2016 @AORTOPLASTY FOR SUPRAVALVULAR STENOSIS (WRVU 29.33) performed by Alirio Hudson MD at [facility] MAIN OR PRO REPLACEMENT PROSTHETIC AORTIC VALVE OPEN W CARDIOPULMONARY BYPASS HOMOGRF/STENT N/A 09/21/2016 @REPLACE AORTIC VALVE, OPEN, W\CPB, W\PROSTHETIC VALVE (WRVU 41.32) performed by Alirio Hudson MD at [facility] MAIN OR Social History and [...] Hgb 10.5 CMP - Cr 1.1 BNP 21535 HsTrop 1358 Lactate 1.6 D-dimer 1183 Interval [...] Klaudia Reid MD Internal Medicine PGY-1 Pager [phone], M1-S1 Service Associated attestation - Juan Luis Gonzalez MD - 05/08/2023 10:00 PM EDT Cardiology Attending Addendum Active Hospital Problems Diagnosis Symptomatic severe aortic stenosis with low ejection fraction Heart failure with reduced ejection fraction due to heart valve disease Mild coronary artery disease by [facility] 11/09/2022 Hyperlipidemia, unspecified History of [...] PCP: Magdalena Acosta MD PCP phone number: [phone] Date of Admission: 05/08/2023 ( Hospital Day [...] Hgb 10.5 CMP - Cr 1.1 BNP 51370 HsTrop 1358 Lactate 1.6 D-dimer 1183 Vasoactive [...] Daily Healthy Menu Choices/Cardiac diet ([facility]) DVT Prophylaxis: heparin gtt GI Prophylaxis: none [...] to the planned procedure. Hand Hygiene: The facilities officer did perform hand hygiene prior to arterial [...] Successful arterial line placement. Crispin Timmons MD Generator Operator Associated attestation - Onelia Schwartz MD [...] (flow was non-pulsatile) and appearance of blood. Kake-Marily catheter was placed and locked at 55 [...] information for follow-up [facility], [facility] [address] [place] [address] Cardiac Rehab, [address] [place] [address] [facility], [facility] [address] [place] [address] Transportation: family or friend will provide *Brother [...] Type: *No Product type* / Secondary Insurance: [employer] [place] Prescription Coverage: Yes This plan was formulated with input from patient, family (please identify family/friend involved ifapplicable) and team. All are in agreement with plan. Aliza Martino MSN-Ed, RN ACM auditor appraiser Office of Care Management Pager #[phone] * Plan of Care - Favian Mckeon [...] Chaudhary RN - 05/21/2023 4:46 PM EDTSummary: [facility] referral OFFICE OF CARE MANAGEMENT [...] Occupational Therapy Recommendation: swing bed rehabilitation facility, fpc facility (vs home with support for IADLs) with walker, front wheeled, shower chair Plan for discharge is: Home w/ Services Outpatient Agency/Support Group Needs: Homecare agency Home Health Services: Physical Therapy, Occupational Therapy Agency Referrals: I have met with the patient to: discuss discharge planning needs. describing our affiliations within the [facility] and educate about their right to choose where referrals are sent. provide a list of Home Health Agencies / Durable Medical Equipment vendors which serve their preferred geographic area. They have requested referrals to: [facility] [address] [place] [address] [facility] @ [place], [place] Note routed to a Bonderizer who will communicate referrals to facilities and provide any required information. Transportation: family or friend will provide *Brother Raymond on Tuesday 05/22 at 1000 Barriers to discharge: Does not have home 22/02 assist available until tomorrow Tuesday 05/22 Plan going forward: Discharge home into the 22/02 home care of brother Raymond with [facility] and [facility] PT/OT services on Tuesday 05/22 [...] Attending: All Staff: Staff Role Juanita Almaguer Family And Consumer Education Teacher Laure Ricks PA Physician Electrician Underground Magdalena Rodriguez cashier and waiter/waitress Nurse Consuelo Espinoza cashier and waiter/waitress Nurse Post-operative diagnosis/Indication: Right pleural effusion Name [...] Type: *No Product type* / Secondary Insurance: [facility] [place] Last Physical Therapy Recommendation: fpc facility, swing bed rehabilitation facility with to [...] discharge planning needs. provide the [facility], Office of Care Management letter from the [employer] pertaining to rehab referrals. provide a letter describing our affiliations within the [facility] and educate about their right to choose where referrals are sent. provide the CMS Star Quality Rating handout. review the different levels of rehab including SNF, swing, and acute. provide a list of facilities within their preferred geographic area. request that they provide at least three choices for referral. They have requested referrals to: [facility] [address] [place] [address] [facility] ([facility]) [address] [place] [address] (Accepts pts only after exhausting all other local SNF options) [facility] (Swing) ([facility]) [address] [place] [address] PHONE: [phone] FAX: [phone] [facility] (Swing) [facility]) [address] [place] [address] PHONE: [phone] FAX: [phone] Note routed to a Bonderizer who will communicate referrals to facilities and [...] - 05/17/2023 10:25 AM EDT [facility] Purnima Thacker was seen today [...] in her course. She ultimately underwent a aelqw-bo-yffkr procedure on and tolerated it well (see operative details). [facility] and sedated on some pressors support.. [...] 1423 05/12/23 1105 PHART 7.39 7.37 7.34* [id number] 33* 36 42 PO2ART 101 102 73* MLY0DJO 19.5* 20.4 22.1 LACTATEVEN 1.5 1.8 2.8* LCT9ADY 40 40 40 PFRATIOART2 252 255 182 VBG (Venous Blood Gas) Recent Labs 05/12/23 1557 05/12/23 1423 05/12/23 1105 LACTATEVEN 1.5 1.8 2.8* Mixed Venous Sat Recent Labs 05/12/23 1425 05/12/23 0508 05/12/23 0321 R6VLMP4 59.9 30.7 32.7 LFT's: Recent Labs 05/14/23 0110 05/13/23 0115 05/12/23 0600 BILITOT 0.4 0.5 0.9 BILIDIR -- 0.3 -- ALBUMIN 3.6 3.0* 3.5 ALKPHOS 86 85 100 ALT 437* 903* 1,174* AST 319* 792* 1,435* No results found for: UPROTCREAT No results found for: TPROTEINPEP, ALBELECT No results found for: MICROALBUR, ZAYQ39JVC No results found for: HA1C Lab Results Component Value Date CALCIUM 8.5 05/14/2023 PHOS 4.7 (H) 05/08/2023 No results found for: 25OHVITD MICROBIOLOGY: ProcedureComponentValueUnitsDate/TimeUrine culture [[id number]]Collected: 05/11/231921Lab Status: Final resultSpecimen: Clean Catch UrineUpdated: [...] consulted for assessment if this patient needs RECYCLING ASSISTANT. Atthis time, we can likely hold off on RECYCLING ASSISTANT. Her volume status appears sufficient and her metabolic kanwal angements with mild acidosis is not too profound. Patient does not have significant uremic symptoms. We can hold off for today, but the patient is a high risk candidate for needing RECYCLING ASSISTANT in future daysespecially if her Cr curve trends the direction it is for the next several days. S/p Itkfe-kd-Qrwuk TF TAVR: Management per cardiology. On milrinone gtt. PLAN: - Please obtain following diagnostics: renal US, urinalysis, urine prot/Cr ratio, urine albumin/Cr ratio, CK, uric acid, serum osmol, daily VBGs - No acute indications for RECYCLING ASSISTANT/dialysis. We will keep close eye on Cr trend, volume status, and metabolics to ensure patient still does not need RECYCLING ASSISTANT as she ensues intrinsic renal recovery - [...] M.H.Katherine., M.A. PGY-V Nephrology-Hypertension Fellow Page # [phone] [facility] [address] 2nd floor, Marine Reporter [address] [place] [address] * Care Management - Mario Alberto Olmos [...] Type: *No Product type* / Secondary Insurance: [facility] Plan for discharge is: Home [...] for a TAVR at 730. Returned to [facility] at 0945. Was intubated in the [...] Operative Note Patient Name: Purnima Thacker : [id number] MR#: [id number] Case Date: 05/12/2023 Surgeon: Surgeon(s) and Role: [...] procedure Note: Patient Name: Purnima Thacker : [id number] MR#: [id number] Case Date: 05/12/2023 Operators Surgeon: Surgeon(s) and [...] main with 4.0 x 30 mm Resolute [place] [facility] Eluting Stent Perclose x1 + Angio-seal 8 Fr x1, RFA Manual pressure, LFA Manual pressure, LFV Endotracheal intubation (performed by cardiac anesthesia) Preliminary findings: Successful right transfemoral TAVR Utnwu-sn-Vmjwq with a 23 mm Lai 3 THV. [...] MD, M.Sc. Structural Heart Disease Fellow Pager :[phone] Antelmo Sharma MD Pager [phone] * Op Note - Alirio Hudson MD - 05/12/2023 7:37 AM EDT Preop Diagnosis: Severe aortic stenosis, symptomatic. Postop Diagnosis: Same. Procedure: Transfemoral TAVR procedure with 23mm valve. Surgeon: Alirio Hudson M.D. 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 [facility] [place] [address] STRUCTURAL HEART DISEASE CONSULTATION NOTE PRIMARY CARE [...] who had been referred for possible TAVR jjpxe-ns-ldvbf evaluation. Her primary symptoms are of dyspnea [...] [facility]. 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 [...] ejection fraction Mild coronary artery disease by [facility] 11/09/2022 Heart failure with reduced [...] whole blood, send to lab ([facility]) Result Value Ref [...] leads Confirmed by MD Harshil, Enrique Bell ([id number]) on 05/10/2023 8:11:46 AM Assessment and Plan: [...] Dr. Hudson of her inpatient status, [place] primary cardiac surgeon. Based on recent clinic [...] Antelmo Sharma MD Structural Heart Disease Pager [phone] * Plan of Care - Sarahi Nice RN - 05/10/2023 3:55 AM EDTSumavis: RN Note and Care Plan Sarahi Nice RN assumed care of pt at time of their arrival to room 362 from [facility]. Pt voices shortness of breath at [...] VTE (Venous Thromboembolism) Risk Flowsheets (Taken 05/09/2023 2706) VTE Prevention/Management: anticoagulant therapy Intervention: Prevent Infection [...] listening utilized Taken 05/08/20231999 by Alivia Kauffman, learning and development intern/Support System Care: self-care encouraged support provided Problem: [...] PAP equipment/settings used * Initial Assessments - lAie Bradshaw RN - 05/09/2023 3:42 PM EDT [...] surrogate would be surrogate decision maker per [place] surrogate decision making law. (Only good for 180 days) Any patient receiving care in [place] must abide by [place] law. The hierarchy for surrogate decision making [...] The agent with financial power of senior attorney or a conservator appointed in accordance [...] Home Address confirmed as: [address] [address] Social & Family Supports: All names listed [...] Type: *No Product type* / Secondary Insurance: [facility] [place] ONLY if patient has Medicare A&B - Does this patient have secondary insurance?: Yes ; Prescription Coverage: Yes Preferred Pharmacy: updated to [facility] in [facility] Status: Patient is a : No Primary Care Provider confirmed: Magdalena Acosta MD [phone] Patient/Caregiver Goals of Treatment: Potential Needs for [...] transition of care planning. Alie Bradshaw RN, Pager-[phone] * Plan of Care - Emily Lucero [...] EST Office Visit [place] [address] Markel Borjas MD [facility] [place] [address] 11/02/2024 12:00 PM EDT [place]ointment [place] [address] 11/02/2024 1:00 PM EDT Office [place] [address] Magdalena Peralta MD [facility] [place] [address] 03/01/2025 4:15 PM EDT Office Visit Dermatology at [place] [address] [place] [address] Marek Bonilla MD [address] [place] [address] Scheduled Referrals Name Type Priority Associated Diagnoses [...] Heart Cath W/Inj L Ventriculography, Img S&I (39302) 05/12/2023 7:37 AM EDT Aortic valve stenosis, [...] DOPP (07/08/2023 12:15 PM EST) EF 20 [employer] Anatomical Region Laterality Modality Cardiac Other 07/08/2023 10:3 1 AM EST Narrative 07/08/2023 12:26 PM EST [address] [place] [address] ? Echocardiogram Report Name: PURNIMA THACKER ?Study Date: 07/08/2023 10:31 AMBP: 118/60 mmHg ? Patient Location: 4A : 1955 ? Height: 155 cm ? Account: [id number] Age: 67 yrs ? Weight: 74 kg Gender: Female ?BSA: 1.7 m2 Ordering Physician: ALIRIO HUDSON Referring Physician: VINOD JUÁREZ Performed By: Felicia Norris RDCS Reason For Study: S/P TAVR Exam Location: [facility]. Interpretation Summary Left ventricular [...] no significant change (post-procedure). Procedure Limited - 93979. Doppler - 44810. Color Doppler - 39780. Satisfactory quality. This study is limited because [...] Note Lee Kincaid MD - 07/08/2023 [address] [place] [address] Echocardiogram Report Name: PRUNIMA THACKER Study Date: 0:31 AMBP: 118/60 mmHg Patient Location: : 1955 Height: 155 cm Account: [id number] Age: 67 yrs Weight: 74 kg Gender: Female BSA: 1.7 m2 Ordering Physician: ALIRIO HUDSON Referring Physician: VINOD JUÁREZ Performed By: Felicia Norris RDCS Reason For Study: S/P TAVR Exam Location: [facility]. Interpretation Summary Left ventricular [...] is nosignificant change (post-procedure). Procedure Limited - 48942. Doppler - 47782. Color Doppler - 27558. Satisfactoryquality. This study is limited because of [...] EST) Glucose 93 65 - 199 mg/dL [facility] Comment:Diabetes: >=200 mg/d L plus symptoms Blood Urea Nitrogen 19(H) 8 - 18 mg/dL [facility] Creatinine 0.81 0.70 - 1.20 mg/dL [facility] Sodium 142 135 - 145 mmol/L [facility] Potassium 3.8 3.5 - 5.0 mmol/L [facility] Comment: Please note: ??Patients with WBC >100,000 may have falsely elevated Potassium levels. ??For accurate Potassium quantification in these patients send serum separator tube (gold top) for subsequent determinations. ??Contact the Clinical Chemistry Laboratory if there are any questions. Chloride 104 98 - 107 mmol/L [facility] Carbon Dioxide 26 22 - 31 mmol/L [facility] Anion Gap 12 5 - 15 mmol/L [facility] Calcium 10.2 8.5 - 10.5 mg/dL [facility] Protein, Total 7.4 6.1 - 8.0 g/dL [facility] Albumin 4.1 3.2 - 5.2 g/dL [facility] Aspartate Aminotransferase 24 0 - 30 unit/L [facility] Alanine Aminotransferase 12 0 - 30 unit/L [facility] Alkaline Phosphatase 93 35 - 105 unit/L [facility] Bilirubin, Total 0.3 0.2 - 1.3 mg/dL [facility] Est Glomerular Filtration Rate 80 >=60 mL/min/1. 73 m?? [facility] Comment: This patient's estimated GFR [...] Lab Alirio Hudson MD CHEMISTRY ORDERABLE S [facility] [place] [address] * (ABNORMAL) Basic Metabolic Panel (non-fasting) (05/22/2023 3:57 AM EDT) Glucose 88 65 - 199 mg/dL [facility] Comment:Diabetes: >=200 mg/d L plus symptoms Blood Urea Nitrogen 21(H) 8 - 18 mg/dL [facility] Creatinine 0.69(L) 0.70 - 1.20 mg/dL [facility] Sodium 136 135 - 145 mmol/L [facility] Potassium 3.6 3.5 - 5.0 mmol/L [facility] Comment: Please note: ??Patients with WBC >100,000 may have falsely elevated Potassium levels. ??For accurate Potassium quantification in these patients send serum separator tube (gold top) for subsequent determinations. ??Contact the Clinical Chemistry Laboratory if there are any questions. Chloride 102 98 - 107 mmol/L [facility] Carbon Dioxide 23 22 - 31 mmol/L [facility] Anion Gap 11 5 - 15 mmol/L [facility] Calcium 8.6 8.5 - 10.5 mg/dL [facility] Est Glomerular Filtration Rate 95 >=60 mL/min/1. 73 m?? [facility] Comment: This patient's estimated GFR [...] Agency Comment Spec In Lab Mara Serrano PROCEDURE MANAGER CHEMISTRY ORDERABL ES [facility] [place] [address] * (ABNORMAL) Basic Metabolic Panel (non-fasting) (05/21/2023 5:06 AM EDT) Glucose 87 65 - 199 mg/dL [facility] Comment:Diabetes: >=200 mg/d L plus symptoms Blood Urea Nitrogen 25(H) 8 - 18 mg/dL [facility] Creatinine 0.84 0.70 - 1.20 mg/dL [facility] Sodium 136 135 - 145 mmol/L [facility] Potassium 3.6 3.5 - 5.0 mmol/L [facility] Comment: Please note: ??Patients with WBC >100,000 may have falsely elevated Potassium levels. ??For accurate Potassium quantification in these patients send serum separator tube (gold top) for subsequent determinations. ??Contact the Clinical Chemistry Laboratory if there are any questions. Chloride 102 98 - 107 mmol/L [facility] Carbon Dioxide 26 22 - 31 mmol/L [facility] Anion Gap 8 5 - 15 mmol/L [facility] Calcium 8.9 8.5 - 10.5 mg/dL [facility] Est Glomerular Filtration Rate 76 >=60 mL/min/1. 73 m?? [facility] Comment: This patient's estimated GFR [...] Narrative Resulting Agency Comment Spec In Lab [facility] PROCEDURE MANAGER CHEMISTRY ORDERABL ES Performing Organization Address City/[facility]/ZIP Co de Phone Number [facility] [place] [address] * Lavender Tube HOLD (05/20/2023 2:52 AM EDT) Lavender Hold Sample in lab. [facility] Blood Venous Draw / Unknown 05/20/2023 2:52 AM EDT 05/20/2023 3:04 AM EDT [facility] PROCEDURE MANAGER HEMATOLOGY ORDERAB LES Performing Organization Address City/[facility]/[place] [address] * (ABNORMAL) Basic Metabolic Panel (non-fasting) (05/20/2023 2:52 AM EDT) Glucose 152 65 - 199 mg/dL [facility] Comment:Diabetes: >=200 mg/d L plus symptoms Blood Urea Nitrogen 33(H) 8 - 18 mg/dL [facility] Creatinine 0.82 0.70 - 1.20 mg/dL [facility] Sodium 137 135 - 145 mmol/L [facility] Potassium 3.7 3.5 - 5.0 mmol/L [facility] Comment: Please note: ??Patients with WBC >100,000 may have falsely elevated Potassium levels. ??For accurate Potassium quantification in these patients send serum separator tube (gold top) for subsequent determinations. ??Contact the Clinical Chemistry Laboratory if there are any questions. Chloride 99 98 - 107 mmol/L [facility] Carbon Dioxide 22 22 - 31 mmol/L [facility] Anion Gap 16(H) 5 - 15 mmol/L [facility] Calcium 9.0 8.5 - 10.5 mg/dL [facility] Est Glomerular Filtration Rate 78 >=60 mL/min/1. 73 m?? [facility] Comment: This patient's estimated GFR [...] Lab Mara Serrano ANURAG CHEMISTRY ORDERABL ES [facility] [place] [address] * (ABNORMAL) Potassium (05/20/2023 2:52 AM EDT) Potassium 3.4(L) 3.5 - 5.0 mmol/L [facility] Comment: Please note: ??Patients with WBC >100,000 may have falsely elevated Potassium levels. ??For accurate Potassium quantification in these patients send serum separator tube (gold top) for subsequent determinations. ??Contact the Clinical Chemistry Laboratory if there are any questions. Blood 05/20/2023 2:52 AM EDT 05/20/2023 3:03 AM EDT Narrative Resulting Agency Comment Spec In Lab Mara Serrano PROCEDURE MANAGER CHEMISTRY ORDERABL ES [facility] [place] [address] * XR Chest PA & Lateral (Generic) [...] questions please contact the health respiratory care faculty that requested your imaging first. ? Electronically signed by: Chyna Johnson MD, Rad[facility] [place] ??([phone]), at 05/19/2023 2:19 PM Narrative 05/19/2023 2:19 [...] have questions please contactthe health respiratory care faculty that requested your imaging first. Alirio Hudson MD IMG DX ORDERABLES * (ABNORMAL) Basic Metabolic Panel (non-fasting) (05/19/2023 5:49 AM EDT) Glucose 93 65 - 199 mg/dL [facility] Comment:Diabetes: >=200 mg/d L plus symptoms Blood Urea Nitrogen 45(H) 8 - 18 mg/dL [facility] Creatinine 1.02 0.70 - 1.20 mg/dL [facility] Sodium 138 135 - 145 mmol/L [facility] Potassium 3.9 3.5 - 5.0 mmol/L [facility] Comment: Please note: ??Patients with WBC >100,000 may have falsely elevated Potassium levels. ??For accurate Potassium quantification in these patients send serum separator tube (gold top) for subsequent determinations. ??Contact the Clinical Chemistry Laboratory if there are any questions. Chloride 102 98 - 107 mmol/L [facility] Carbon Dioxide 26 22 - 31 mmol/L [facility] Anion Gap 10 5 - 15 mmol/L [facility] Calcium 9.7 8.5 - 10.5 mg/dL [facility] Est Glomerular Filtration Rate 60 >=60 mL/min/1. 73 m?? [facility] Comment: This patient's estimated GFR [...] OSBORN CHEMISTRY ORDERABL ES Performing Organization Address City/State/[facility] Co de Phone Number [facility] [place] [address] * IR Chest Tube Placement Right (05/18/2023 [...] MD 05/18/2023 Alirio Hudson MD [facility] * (ABNORMAL) Basic Metabolic Panel (non-fasting) (05/18/2023 2:54 AM EDT) Glucose 95 65 - 199 mg/dL [facility] Comment:Diabetes: >=200 mg/d L plus symptoms Blood Urea Nitrogen 71(H) 8 - 18 mg/dL [facility] Comment:result rechecked-[facility] Creatinine 1.64(H) 0.70 - 1.20 mg/dL [facility] Comment:result rechecked-[facility] Sodium 137 135 - 145 mmol/L [facility] Potassium 3.7 3.5 - 5.0 mmol/L [facility] Comment: Please note: ??Patients with WBC >100,000 may have falsely elevated Potassium levels. ??For accurate Potassium quantification in these patients send serum separator tube (gold top) for subsequent determinations. ??Contact the Clinical Chemistry Laboratory if there are any questions. Chloride 100 98 - 107 mmol/L [facility] Carbon Dioxide 24 22 - 31 mmol/L [facility] Anion Gap 13 5 - 15 mmol/L [facility] Calcium 9.7 8.5 - 10.5 mg/dL [facility] Est Glomerular Filtration Rate 34(L) >=60 mL/min/1. 73 m?? [facility] Comment: This patient's estimated GFR [...] [facility] [place] [address] * XR Chest PA & Lateral (Generic) [...] questions please contact the health respiratory care faculty that requested your imaging first. ? Electronically signed by: Ghassan Reyes MD, [facility] ??([phone]), at 05/17/2023 11:46 AM Narrative 05/17/2023 11:46 [...] have questions please contactthe health respiratory care faculty that requested your imaging first. Alirio Hudson MD IMG DX ORDERABLES * (ABNORMAL) Comprehensive metabolic panel (non-fasting) (05/17/2023 4:35 AM EDT) Glucose 89 65 - 199 mg/dL [facility] Comment:Diabetes: >=200 mg/d L plus symptoms Blood Urea Nitrogen 97(H) 8 - 18 mg/dL [facility] Creatinine 2.97(H) 0.70 - 1.20 mg/dL [facility] Comment:result rechecked-JSJ Sodium 135 135 - 145 mmol/L [facility] Potassium 4.1 3.5 - 5.0 mmol/L [facility] Comment: Please note: ??Patients with WBC >100,000 may have falsely elevated Potassium levels. ??For accurate Potassium quantification in these patients send serum separator tube (gold top) for subsequent determinations. ??Contact the Clinical Chemistry Laboratory if there are any questions. Chloride 97(L) 98 - 107 mmol/L [facility] Carbon Dioxide 22 22 - 31 mmol/L [facility] Anion Gap 16(H) 5 - 15 mmol/L [facility] Calcium 9.6 8.5 - 10.5 mg/dL [facility] Protein, Total 6.5 6.1 - 8.0 g/dL [facility] Albumin 3.7 3.2 - 5.2 g/dL [facility] Aspartate Aminotransferase 58(H) 0 - 30 unit/L [facility] Alanine Aminotransferase 66(H) 0 - 30 unit/L [facility] Alkaline Phosphatase 86 35 - 105 unit/L [facility] Bilirubin, Total 0.6 0.2 - 1.3 mg/dL [facility] Est Glomerular Filtration Rate 17(L) >=60 mL/min/1. 73 m?? [facility] Comment: This patient's estimated GFR [...] MD CHEMISTRY ORDERABLE S Performing Organization Address [facility] Co de Phone Number [facility] [place] [address] * Potassium (05/16/2023 11:15 PM EDT) Potassium 3.7 3.5 - 5.0 mmol/L [facility] Comment: Please note: ??Patients with [...] CHEMISTRY ORDERABLE S Performing Organization Address City/[facility] Co de Phone Number [facility] [place] [address] * Magnesium (05/16/2023 5:22 PM EDT) Magnesium 0.96 0.69 - 1.07 mmol/L [facility] Blood 05/16/2023 5:22 PM EDT 05/16/2023 5:27 PM EDT Narrative Resulting Agency Comment Spec In Lab Alirio Hudson MD CHEMISTRY ORDERABLE S Performing Organization Address City/[facility]/ZIP Co de Phone Number [facility] [place] [address] * (ABNORMAL) Basic Metabolic Panel (non-fasting) (05/16/2023 5:22 PM EDT) Glucose 106 65 - 199 mg/dL [facility] Comment:Diabetes: >=200 mg/d L plus symptoms Blood Urea Nitrogen 103(H) 8 - 18 mg/dL [facility] Creatinine 3.91(H) 0.70 - 1.20 mg/dL [facility] Comment:result rechecked-imm Sodium 132(L) 135 - 145 mmol/L [facility] Potassium 3.6 3.5 - 5.0 mmol/L [facility] Comment: Please note: ??Patients with WBC >100,000 may have falsely elevated Potassium levels. ??For accurate Potassium quantification in these patients send serum separator tube (gold top) for subsequent determinations. ??Contact the Clinical Chemistry Laboratory if there are any questions. Chloride 92(L) 98 - 107 mmol/L [facility] Carbon Dioxide 22 22 - 31 mmol/L [facility] Anion Gap 18(H) 5 - 15 mmol/L [facility] Calcium 9.7 8.5 - 10.5 mg/dL [facility] Est Glomerular Filtration Rate 12(L) >=60 mL/min/1. 73 m?? [facility] Comment: This patient's estimated GFR [...] Lab Alirio Hudson MD CHEMISTRY ORDERABLE S [facility] [place] [address] * (ABNORMAL) Potassium (05/16/2023 11:43 AM EDT) Potassium 3.3(L) 3.5 - 5.0 mmol/L [facility] Comment: Please note: ??Patients with [...] CHEMISTRY ORDERABLE S Performing Organization Address City/[facility]/ZIP Co de Phone Number [facility] [place] [address] * (ABNORMAL) Ferritin (05/16/2023 4:41 AM EDT) Ferritin 1,813(H) 30 - 400 ng/mL [facility] Comment: Pediatric reference ranges not verified [place] [facility] interpret with caution. Reference ranges for females greater than 50 years of age approach values for men, i.e., 30-400 ng/mL. Blood 05/16/2023 4:41 AM EDT 05/16/2023 4:54 AM EDT Narrative Resulting Agency Comment Spec In Lab Kristopher Ayoub MD CHEMISTRY ORDERABLES [facility] [place] [address] * (ABNORMAL) PTH (05/16/2023 4:41 AM EDT) Parathyroid Hormone 120(H) 15 - 65 pg/mL [facility] Blood 05/16/2023 4:41 AM EDT 05/16/2023 4:54 AM EDT Narrative Resulting Agency Comment Spec In Lab Kristopher Ayoub MD CHEMISTRY ORDERABLES [facility] [place] [address] * Vitamin D, 25-Hydroxy (05/16/2023 4:41 AM EDT) Vitamin D Total 25 OH 33 21 - 100 ng/mL [facility] Vit D Interp Sufficient [facility] Blood 05/16/2023 4:41 AM EDT 05/16/2023 4:54 AM EDT Narrative Resulting Agency Comment Spec In Lab Kristopher Ayoub MD CHEMISTRY ORDERABLES Performing Organization Address City/[facility]/ZIP Co de Phone Number [facility] [place] [address] * (ABNORMAL) Blood Gas Venous ([facility]) (05/16/2023 4:22 AM EDT) pH, Venous 7.41 7.32 - 7.42 [facility] PCO2, Venous 32(L) 41 - 51 mmHg [facility] PO2, Venous 73(H) 25 - 40 mmHg [facility] Bicarbonate, Venous 19.6 mmol/L [facility] Base Excess, Venous -5.1 mmol/L [facility] Hgb Blood Gas 9.7(L) 11.7 - 15.5 g/dL [facility] Oxyhemoglobin, Venous 92.8 % [facility] Carboxyhemoglob in, Venous 0.1 % [facility] Comment: Nonsmokers: 0.5-1.5% COHB Smokers: Variable, but usually less than 10% Toxic: 20-30% COHB Lethal: Greater than 60% COHB Methemoglobin, Venous 0.3 <=1.5 % [facility] Na Whole Blood 130(L) 135 - 145 mmol/L [facility] K Whole Blood 3.7 3.5 - 5.0 mmol/L [facility] Comment: Please note: Patients with WBC >100,000 may have falsely elevated Potassium levels. Contact the Clinical Chemistry Laboratory if there are any questions. ICa Whole Blood 1.15 1.15 - 1.33 mmol/L [facility] Comment: Note: ??Total bilirubin higher than 20 mg/dL may lead to falsely low ionized calcium. CL Whole Blood 95(L) 98 - 107 mmol/L [facility] Gluc Whole Bld 82 65 - 199 mg/dL [facility] Comment:Diabetes: >=200 mg/d L plus symptoms Lactate WB 1.1 0.5 - 2.2 mmol/L [facility] Blood Gas Source Venous [facility] Blood Venous Draw / Unknown 05/16/2023 4:22 AM EDT 05/16/2023 4:31 AM EDT Narrative Resulting Agency Comment Spec In Lab Bonita TOBAR CHEMISTRY ORDERABLES [facility] [place] [address] * (ABNORMAL) Differential, Automated (05/16/2023 4:20 AM EDT) Neutrophil % 84.1 % [facility] Neutrophil Absolute 6.22(H) 1.70 - 6.10 x10(3)/mc L [facility] Lymph % 5.8 % [facility] Lymphocytes Abs 0.4(L) 0.9 - 3.2 x10(3)/mc L [facility] Monocyte % 8.8 % [facility] Monocyte Abs 0.6 0.3 - 0.9 x10(3)/mc L [facility] Eos % 0.4 % [facility] Eosinophils Abs 0.0 0.0 - 0.4 x10(3)/mc L [facility] Basophil % 0.0 % [facility] Baso Absolute 0.0 0.0 - 0.1 x10(3)/mc L [facility] Immature Gran % 0.90 % [facility] Comment: Immature granulocytes(IG's)percentage and absolute count will include metamyelocytes, myelocytes, and promyelocytes. Blood smears from CBCs yielding IG's will be scanned manually for concordance. If this scan disagrees with the automated IG or if promyelocytes are noted, a manual differential will be performed. Immature Gran Absolute 0.07(H) 0.00 - 0.04 x10(3)/mc L [facility] Blood 05/16/2023 4:20 AM EDT 05/16/2023 4:29 AM EDT Narrative Resulting Agency Comment Spec In Lab James Agustin MD HEMATOLOGY ORDER JODIE [facility] [place] [address] * (ABNORMAL) Hemogram (05/16/2023 4:20 AM EDT) White Blood Cell 7.4 4.0 - 9.5 x10(3)/mc L [facility] Red Blood Cell 2.40(L) 4.00 - 5.21 x10(6)/mc L [facility] Hemoglobin 7.8(L) 11.7 - 15.5 g/dL [facility] Hematocrit 22.5(L) 35.7 - 45.8 % [facility] Mean Cell Volume 93.8 82.6 - 94.4 fL [facility] Mean Cell Hemoglobin 32.5(H) 27.1 - 32.0 pg [facility] Mean Cell Hemoglobin Concentration 34.7 31.7 - 35.0 g/dL [facility] Platelet 120(L) 145 - 357 x10(3)/mc L [facility] RDW Standard Deviation 42.9 37.0 - 46.0 fL [facility] RDW coefficient of variation 12.9 11.5 - 14.1 % [facility] Mean Platelet Volume 11.3 7.6 - 12.9 fL [facility] NRBC% auto 0.7 % [facility] NRBC Absolute 0.050(H) 0.000 - 0.000 x10(3)/mc L [facility] Blood 05/16/2023 4:20 AM EDT 05/16/2023 4:29 AM EDT Narrative Resulting Agency Comment Spec In Lab James Agustin MD HEMATOLOGY ORDER JODIE Performing Organization Address City/[facility]/ZIP Co de Phone Number [facility] [place] [address] * (ABNORMAL) Basic Metabolic Panel (non-fasting) (05/16/2023 4:20 AM EDT) Glucose 89 65 - 199 mg/dL [facility] Comment:Diabetes: >=200 mg/d L plus symptoms Blood Urea Nitrogen 108(H) 8 - 18 mg/dL [facility] Creatinine 4.74(H) 0.70 - 1.20 mg/dL [facility] Comment:result rechecked-OLIVA Sodium 132(L) 135 - 145 mmol/L [facility] Potassium 3.9 3.5 - 5.0 mmol/L [facility] Comment: Please note: ??Patients with WBC >100,000 may have falsely elevated Potassium levels. ??For accurate Potassium quantification in these patients send serum separator tube (gold top) for subsequent determinations. ??Contact the Clinical Chemistry Laboratory if there are any questions. Chloride 95(L) 98 - 107 mmol/L [facility] Carbon Dioxide 18(L) 22 - 31 mmol/L [facility] Anion Gap 19(H) 5 - 15 mmol/L [facility] Calcium 9.2 8.5 - 10.5 mg/dL [facility] Est Glomerular Filtration Rate 10(L) >=60 mL/min/1. 73 m?? [facility] Comment: This patient's estimated GFR [...] Lab Alirio Hudson MD CHEMISTRY ORDERABLE S [facility] [place] [address] * (ABNORMAL) Iron and TIBC (05/16/2023 4:20 AM EDT) Iron 31 30 - 150 mcg/dL [facility] TIBC 259 250 - 450 mcg/dL [facility] Iron Saturation 12(L) 20 - 50 % [facility] Blood 05/16/2023 4:20 AM EDT 05/16/2023 4:29 AM EDT Narrative Resulting Agency Comment Spec In Lab Kristopher Ayoub MD CHEMISTRY ORDERABLES [facility] [place] [address] * (ABNORMAL) Basic Metabolic Panel (non-fasting) (05/15/2023 12:50 AM EDT) Glucose 101 65 - 199 mg/dL [facility] Comment:Diabetes: >=200 mg/d L plus symptoms Blood Urea Nitrogen 109(H) 8 - 18 mg/dL [facility] Creatinine 5.62(H) 0.70 - 1.20 mg/dL [facility] Comment:result rechecked-[place] Sodium 131(L) 135 - 145 mmol/L [facility] Comment:result rechecked-[place] Potassium 3.7 3.5 - 5.0 mmol/L [facility] Comment: result rechecked-KS Please note: ??Patients with WBC >100,000 may have falsely elevated Potassium levels. ??For accurate Potassium quantification in these patients send serum separator tube (gold top) for subsequent determinations. ??Contact the Clinical Chemistry Laboratory if there are any questions. Chloride 92(L) 98 - 107 mmol/L [facility] Comment:result rechecked-[place] Carbon Dioxide 18(L) 22 - 31 mmol/L [facility] Comment:result rechecked-[place] Anion Gap 21(H) 5 - 15 mmol/L [facility] Calcium 8.9 8.5 - 10.5 mg/dL [facility] Est Glomerular Filtration Rate 8(L) >=60 mL/min/1. 73 m?? [facility] Comment: This patient's estimated GFR [...] Lab Alirio Hudson MD CHEMISTRY ORDERABLE S [facility] [place] [address] * (ABNORMAL) Hemogram (05/15/2023 12:50 AM EDT) White Blood Cell 9.1 4.0 - 9.5 x10(3)/mc L [facility] Red Blood Cell 2.19(L) 4.00 - 5.21 x10(6)/mc L [facility] Hemoglobin 7.2(L) 11.7 - 15.5 g/dL [facility] Hematocrit 20.6(L) 35.7 - 45.8 % [facility] Mean Cell Volume 94.1 82.6 - 94.4 fL [facility] Mean Cell Hemoglobin 32.9(H) 27.1 - 32.0 pg [facility] Mean Cell Hemoglobin Concentration 35.0 31.7 - 35.0 g/dL [facility] Platelet 109(L) 145 - 357 x10(3)/mc L [facility] RDW Standard Deviation 43.6 37.0 - 46.0 fL [facility] RDW coefficient of variation 12.9 11.5 - 14.1 % [facility] Mean Platelet Volume 10.4 7.6 - 12.9 fL [facility] NRBC% auto 2.1 % [facility] NRBC Absolute 0.190(H) 0.000 - 0.000 x10(3)/mc L [facility] Blood 05/15/2023 12:5 0 AM EDT 05/15/2023 12:52 AM EDT Narrative Resulting Agency Comment Spec In Lab Alirio Hudson MD HEMATOLOGY ORDERABL ES [facility] [address] [place] [address] * (ABNORMAL) BLOOD GAS 2 VENOUS (05/15/2023 12:49 AM EDT) pH, Venous 7.33 7.32 - 7.42 [facility] PCO2, Venous 37(L) 41 - 51 mmHg [facility] PO2, Venous 34 25 - 40 mmHg [facility] Bicarbonate, Venous 19.1 mmol/L [facility] Base Excess, Venous -6.8 mmol/L [facility] Hgb Blood Gas 10.8(L) 11.7 - 15.5 g/dL [facility] Oxyhemoglobin, Venous 58.1 % [facility] Carboxyhemoglob in, Venous 0.3 % [facility] Comment: Nonsmokers: 0.5-1.5% COHB Smokers: Variable, but usually less than 10% Toxic: 20-30% COHB Lethal: Greater than 60% COHB Methemoglobin, Venous 0.6 <=1.5 % [facility] Na Whole Blood 136 135 - 145 mmol/L [facility] K Whole Blood 3.7 3.5 - 5.0 mmol/L [facility] Comment: Please note: Patients with WBC >100,000 may have falsely elevated Potassium levels. Contact the Clinical Chemistry Laboratory if there are any questions. ICa Whole Blood 1.12(L) 1.15 - 1.33 mmol/L [facility] Comment: Note: ??Total bilirubin higher than 20 mg/dL may lead to falsely low ionized calcium. CL Whole Blood 95(L) 98 - 107 mmol/L [facility] Gluc Whole Bld 101 65 - 199 mg/dL [facility] Comment:Diabetes: >=200 mg/d L plus symptoms Lactate WB 1.3 0.5 - 2.2 mmol/L [facility] Flow, Mike 1.0 LPM [facility] Blood Gas Source Venous [facility] Blood 05/15/2023 12:4 9 AM EDT 05/15/2023 12:49 AM EDT Alirio Hudson MD POINT OF CARE TEST ORDERABLES [facility] [place] [address] * US Retroperitoneal Complete (05/14/2023 3:53 PM [...] questions, please contact the health respiratory care faculty that requested your imaging first. ? Hayden Robledo, Staff Physician Electronically Signed Final Report ?? 05/14/2023 04:39 pm Narrative 05/14/2023 4:39 PM EDT Renal ? (Signed Final 05/14/2023 04:39 pm) PATIENT INFO: ID #: ? [id number] ?: ??[birth year] (67 yrs)(F) Name: ? PURNIMA THACKER ?Visit Date: 05/14/2023 03:44 pm PERFORMED BY: Attending: ?Meena CULP, Hayden Stafford Resident: ? Nell CULP, Anand August Performed By: ? Consuelo Tello RDMS Referred By: ?ALIRIO HUDSON Location: ? [place] SERVICE(S) PROVIDED: URETRO - Retroperitoneal Complete - [id number] ? [id number] INDICATIONS: EVANS COMPARISON: CT: Abdomen/Pelvis 05/11/23 RIGHT [...] 05/14/2023 04:39 pm) PATIENT INFO: ID #: [id number] : [birth year] (67 yrs)(F) Name: PURNIMA THACKER Visit Date: 05/14/2023 03:44 pm PERFORMED BY: Attending: Meena CULP, Hayden Stafford Resident: Anand Camejo MD Performed By: Consuelo Tello RDMS Referred By: ALIRIO HUDSON Location: [place] SERVICE(S) PROVIDED: URETRO - Retroperitoneal Complete - [id number] INDICATIONS: EVANS COMPARISON: CT: Abdomen/Pelvis 05/11/23 RIGHT [...] questions, please contact the health respiratory care faculty that requested your imaging first. Hayden Robledo, Staff Physician Electronically Signed Final Report 05/14/2023 04:39 pm Alirio Hudson MD IMG US GEN ORDERABL ES * CK (05/14/2023 3:17 PM EDT) Pathologist [facility] Creatine Kinase 123 0 - 160 unit/L [facility] Blood 05/14/2023 3:17 PM EDT 05/14/2023 3:31 PM EDT Narrative Resulting Agency Comment Spec In Lab Alirio Hudson MD CHEMISTRY ORDERABLE S [facility] [place] [address] * (ABNORMAL) Uric acid (05/14/2023 3:17 PM EDT) Pathologist [facility] Uric Acid 14.9(H) 2.5 - 6.5 mg/dL [facility] Blood 05/14/2023 3:17 PM EDT 05/14/2023 3:31 PM EDT Narrative Resulting Agency Comment Spec In Lab Alirio Hudson MD CHEMISTRY ORDERABLE S Performing Organization Address City/[facility] Co de Phone Number [facility] [place] [address] * (ABNORMAL) Osmolality (05/14/2023 3:17 PM EDT) Osmolality 311(H) 275 - 295 mOsm/kg [facility] Blood 05/14/2023 3:17 PM EDT 05/14/2023 3:31 PM EDT Narrative Resulting Agency Comment Spec In Lab Alirio Hudson MD CHEMISTRY ORDERABLE S Performing Organization Address [facility] de Phone Number [facility] [place] [address] * (ABNORMAL) Differential, Automated (05/14/2023 1:10 AM EDT) Neutrophil % 87.2 % [facility] Neutrophil Absolute 9.74(H) 1.70 - 6.10 x10(3)/mc L [facility] Lymph % 3.9 % [facility] Lymphocytes Abs 0.4(L) 0.9 - 3.2 x10(3)/mc L [facility] Monocyte % 7.9 % [facility] Monocyte Abs 0.9 0.3 - 0.9 x10(3)/mc L [facility] Eos % 0.0 % [facility] Eosinophils Abs 0.0 0.0 - 0.4 x10(3)/mc L [facility] Basophil % 0.1 % [facility] Baso Absolute 0.0 0.0 - 0.1 x10(3)/mc L [facility] Immature Gran % 0.90 % [facility] Comment: Immature granulocytes(IG's)percentage and absolute count will include metamyelocytes, myelocytes, and promyelocytes. Blood smears from CBCs yielding IG's will be scanned manually for concordance. If this scan disagrees with the automated IG or if promyelocytes are noted, a manual differential will be performed. Immature Gran Absolute 0.10(H) 0.00 - 0.04 x10(3)/mc L [facility] Blood 05/14/2023 1:10 AM EDT 05/14/2023 1:24 AM EDT Narrative Resulting Agency Comment Spec In Lab Bonita TOBAR HEMATOLOGY ORDERABLE S [facility] [place] [address] * (ABNORMAL) Hemogram (05/14/2023 1:10 AM EDT) White Blood Cell 11.2(H) 4.0 - 9.5 x10(3)/mc L [facility] Red Blood Cell 2.19(L) 4.00 - 5.21 x10(6)/mc L [facility] Hemoglobin 7.2(L) 11.7 - 15.5 g/dL [facility] Hematocrit 20.3(L) 35.7 - 45.8 % [facility] Mean Cell Volume 92.7 82.6 - 94.4 fL [facility] Mean Cell Hemoglobin 32.9(H) 27.1 - 32.0 pg [facility] Mean Cell Hemoglobin Concentration 35.5(H) 31.7 - 35.0 g/dL [facility] Platelet 112(L) 145 - 357 x10(3)/mc L [facility] RDW Standard Deviation 41.4 37.0 - 46.0 fL [facility] RDW coefficient of variation 12.5 11.5 - 14.1 % [facility] Mean Platelet Volume 10.4 7.6 - 12.9 fL [facility] NRBC% auto 1.5 % [facility] NRBC Absolute 0.170(H) 0.000 - 0.000 x10(3)/mc L [facility] Blood 05/14/2023 1:10 AM EDT 05/14/2023 1:24 AM EDT Narrative Resulting Agency Comment Spec In Lab Bonita TOBAR HEMATOLOGY ORDERABLE S [facility] [place] [address] * (ABNORMAL) Comprehensive metabolic panel (non-fasting) (05/14/2023 1:10 AM EDT) Glucose 120 65 - 199 mg/dL [facility] Comment:Diabetes: >=200 mg/d L plus symptoms Blood Urea Nitrogen 98(H) 8 - 18 mg/dL [facility] Creatinine 4.80(H) 0.70 - 1.20 mg/dL [facility] Comment:result rechecked-ssc Sodium 132(L) 135 - 145 mmol/L [facility] Potassium 4.1 3.5 - 5.0 mmol/L [facility] Comment: Please note: ??Patients with WBC >100,000 may have falsely elevated Potassium levels. ??For accurate Potassium quantification in these patients send serum separator tube (gold top) for subsequent determinations. ??Contact the Clinical Chemistry Laboratory if there are any questions. Chloride 94(L) 98 - 107 mmol/L [facility] Carbon Dioxide 18(L) 22 - 31 mmol/L [facility] Anion Gap 20(H) 5 - 15 mmol/L [facility] Calcium 8.5 8.5 - 10.5 mg/dL [facility] Protein, Total 5.8(L) 6.1 - 8.0 g/dL [facility] Albumin 3.6 3.2 - 5.2 g/dL [facility] Aspartate Aminotransferase 319(H) 0 - 30 unit/L [facility] Alanine Aminotransferase 437(H) 0 - 30 unit/L [facility] Alkaline Phosphatase 86 35 - 105 unit/L [facility] Bilirubin, Total 0.4 0.2 - 1.3 mg/dL [facility] Est Glomerular Filtration Rate 9(L) >=60 mL/min/1. 73 m?? [facility] Comment: This patient's estimated GFR [...] MD CHEMISTRY ORDERABLE S Performing Organization Address [facility] de Phone Number [facility] [place] [address] * APTT (05/13/2023 10:15 AM EDT) Partial Thromboplastin Time 27 25 - 37 sec [facility] Comment: The PTT is NOT appropriate for heparin monitoring. Use the Anti-Xa level for heparin monitoring (HEP UFH) or LMWH monitoring (HEP LMW). A PTT less than 37 seconds generally indicates adequate hemostasis. Blood 05/13/2023 10:1 5 AM EDT 05/13/2023 10:46 AM EDT Narrative Resulting Agency Comment Spec In Lab Alirio Hudson MD HEMATOLOGY ORDERABL ES Performing Organization Address [facility] Co de Phone Number [facility] [place] [address] * (ABNORMAL) Prothrombin Time (05/13/2023 10:15 AM EDT) Prothrombin Time 14.6(H) 9.4 - 12.5 sec [facility] International Normalization Ratio 1.3 [facility] Comment: An INR <2.0 indicates [...] MD HEMATOLOGY ORDERABL ES Performing Organization Address City/[facility]/ZIP Co de Phone Number [facility] [place] [address] * EKG 12 Lead (05/13/2023 9:22 AM EDT) Ventricular rate 92 BPM MUSE SYSTEM Atrial Rate 92 BPM MUSE SYSTEM P-R Interval 140 ms MUSE SYSTEM QRS Duration 104 ms MUSE SYSTEM Q-T Interval 384 ms MUSE SYSTEM QTC Calculated (Bezet) 474 ms MUSE SYSTEM Calculated P [place] 33 degrees MUSE SYSTEM Calculated R [place] 41 degrees MUSE SYSTEM Calculated T [place] -35 degrees MUSE SYSTEM INTERPRETATION Sinus rhythm with frequent Premature ventricular complexes Septal infarct , age undetermined ST & T wave abnormality, consider lateral ischemia Abnormal ECG When compared with ECG of 12-MAY-2023 10:10, Premature ventricular complexes are now Present I personally reviewed the tracing and edited the fellows interpretation Confirmed by fellow MD Anitha, Banner ([id number]) on 05/13/2023 3:25:30 PM Confirmed by Maxx Best ([id number]) on 05/13/2023 8:30:56 PM MUSE SYSTEM 05/13/2023 9:22 AM EDT 05/13/2023 8:30 PM EDT Alirio Hudson MD ECG ORDERABLES Performing Organization Address City/[facility]/ZIP Co de Phone Number M[facility] SYSTEM * (ABNORMAL) Differential, Automated (05/13/2023 1:15 AM EDT) Neutrophil % 88.1 % [facility] Neutrophil Absolute 7.62(H) 1.70 - 6.10 x10(3)/mc L [facility] Lymph % 3.1 % [facility] Lymphocytes Abs 0.3(L) 0.9 - 3.2 x10(3)/mc L [facility] Monocyte % 7.9 % [facility] Monocyte Abs 0.7 0.3 - 0.9 x10(3)/mc L [facility] Eos % 0.0 % [facility] Eosinophils Abs 0.0 0.0 - 0.4 x10(3)/mc L [facility] Basophil % 0.1 % [facility] Baso Absolute 0.0 0.0 - 0.1 x10(3)/ L [facility] Immature Gran % 0.80 % [facility] Comment: Immature granulocytes(IG's)percentage and absolute count will include metamyelocytes, myelocytes, and promyelocytes. Blood smears from CBCs yielding IG's will be scanned manually for concordance. If this scan disagrees with the automated IG or if promyelocytes are noted, a manual differential will be performed. Immature Gran Absolute 0.07(H) 0.00 - 0.04 x10(3)/ L [facility] Blood 05/13/2023 1:15 AM EDT 05/13/2023 1:29 AM EDT Narrative Resulting Agency Comment Spec In Lab Lorri TOBAR HEMATOLOGY ORDERABLE S Performing Organization Address City/State/[facility] Co de Phone Number [facility] [place] [address] * (ABNORMAL) Hemogram (05/13/2023 1:15 AM EDT) White Blood Cell 8.6 4.0 - 9.5 x10(3)/mc L [facility] Red Blood Cell 2.37(L) 4.00 - 5.21 x10(6)/ L [facility] Hemoglobin 7.8(L) 11.7 - 15.5 g/dL [facility] Hematocrit 22.2(L) 35.7 - 45.8 % [facility] Mean Cell Volume 93.7 82.6 - 94.4 fL [facility] Mean Cell Hemoglobin 32.9(H) 27.1 - 32.0 pg [facility] Mean Cell Hemoglobin Concentration 35.1(H) 31.7 - 35.0 g/dL [facility] Platelet 130(L) 145 - 357 x10(3)/mc L [facility] RDW Standard Deviation 41.7 37.0 - 46.0 fL [facility] RDW coefficient of variation 12.5 11.5 - 14.1 % [facility] Mean Platelet Volume 10.2 7.6 - 12.9 fL [facility] NRBC% auto 0.5 % [facility] NRBC Absolute 0.040(H) 0.000 - 0.000 x10(3)/mc L [facility] Blood 05/13/2023 1:15 AM EDT 05/13/2023 1:29 AM EDT Narrative Resulting Agency Comment Spec In Lab Lorri TOBAR HEMATOLOGY ORDERABLE S Performing Organization Address City/[facility] Co de Phone Number [facility] [place] [address] * (ABNORMAL) Hepatic Function Panel (05/13/2023 1:15 AM EDT) Protein, Total 5.5(L) 6.1 - 8.0 g/dL [facility] Albumin 3.0(L) 3.2 - 5.2 g/dL [facility] Aspartate Aminotransferase 792(H) 0 - 30 unit/L [facility] Alanine Aminotransferase 903(H) 0 - 30 unit/L [facility] Alkaline Phosphatase 85 35 - 105 unit/L [facility] Bilirubin, Total 0.5 0.2 - 1.3 mg/dL [facility] Bilirubin, Direct 0.3 0.0 - 0.3 mg/dL [facility] Blood 05/13/2023 1:15 AM EDT 05/13/2023 1:29 AM EDT Narrative Resulting Agency Comment Spec In Lab Alirio Hudson MD CHEMISTRY ORDERABLE S Performing Organization Address City/[facility]/ZIP Co de Phone Number [facility] [place] [address] * (ABNORMAL) Basic Metabolic Panel (non-fasting) (05/13/2023 1:15 AM EDT) Glucose 107 65 - 199 mg/dL [facility] Comment:Diabetes: >=200 mg/d L plus symptoms Blood Urea Nitrogen 82(H) 8 - 18 mg/dL [facility] Creatinine 3.15(H) 0.70 - 1.20 mg/dL [facility] Comment:result rechecked-JSJ Sodium 132(L) 135 - 145 mmol/L [facility] Potassium 3.8 3.5 - 5.0 mmol/L [facility] Comment: Please note: ??Patients with WBC >100,000 may have falsely elevated Potassium levels. ??For accurate Potassium quantification in these patients send serum separator tube (gold top) for subsequent determinations. ??Contact the Clinical Chemistry Laboratory if there are any questions. Chloride 95(L) 98 - 107 mmol/L [facility] Carbon Dioxide 20(L) 22 - 31 mmol/L [facility] Anion Gap 17(H) 5 - 15 mmol/L [facility] Calcium 8.3(L) 8.5 - 10.5 mg/dL [facility] Est Glomerular Filtration Rate 16(L) >=60 mL/min/1. 73 m?? [facility] Comment: This patient's estimated GFR [...] Lab Alirio Hudson MD CHEMISTRY ORDERABLE S [facility] [place] [address] * (ABNORMAL) BLOOD GAS 2 ARTERIAL (05/12/2023 3:57 PM EDT) pH, Arterial 7.39 7.35 - 7.45 [facility] PCO2, Arterial 33(L) 35 - 45 mmHg [facility] PO2, Arterial 101 85 - 104 mmHg [facility] Bicarbonate, Arterial 19.5(L) 20.0 - 26.0 mmol/L [facility] Base Excess, Arterial -5.5(L) -3.0 - 3.0 mmol/L [facility] Hgb Blood Gas 9.8(L) 11.7 - 15.5 g/dL [facility] Oxyhemoglobin, Arterial 95.2 94.0 - 97.0 % [facility] Carboxyhemoglob in, Arterial 0.2 % [facility] Comment: Nonsmokers: 0.5-1.5% COHB Smokers: Variable, but usually less than 10% Toxic: 20-30% COHB Lethal: Greater than 60% COHB Methemoglobin, Arterial 0.8 <=1.5 % [facility] Na Whole Blood 129(L) 135 - 145 mmol/L [facility] K Whole Blood 3.8 3.5 - 5.0 mmol/L [facility] Comment: Please note: Patients with WBC >100,000 may have falsely elevated Potassium levels. Contact the Clinical Chemistry Laboratory if there are any questions. ICa Whole Blood 1.05(L) 1.15 - 1.33 mmol/L [facility] Comment: Note: ??Total bilirubin higher than 20 mg/dL may lead to falsely low ionized calcium. CL Whole Blood 96(L) 98 - 107 mmol/L [facility] Gluc Whole Bld 178 65 - 199 mg/dL [facility] Comment:Diabetes: >=200 mg/d L plus symptoms. Lactate WB 1.5 0.5 - 2.2 mmol/L [facility] FIO2 Art 40 % [facility] PF Ratio Art 252 [facility] Blood 05/12/2023 3:57 PM EDT 05/12/2023 3:57 PM EDT Alirio Hudson MD POINT OF CARE TEST ORDERABLES [facility] [place] [address] * (ABNORMAL) Coox2 (05/12/2023 2:25 PM EDT) pO2, Coox 37 mmHg [facility] Hgb Blood Gas 9.5(L) 11.7 - 15.5 g/dL [facility] Oxyhemoglobin, Coox 59.9 % [facility] Carboxyhemoglo bin, Coox 0.3 % [facility] Comment: Nonsmokers: 0.5-1.5% COHB Smokers: Variable, but usually less than 10% Toxic: 20-30% COHB Lethal: Greater than 60% COHB Methemoglobin, Coox 0.7 <=1.5 % [facility] Source Coox Mixed Venous [facility] Blood 05/12/2023 2:25 PM EDT 05/12/2023 2:25 PM EDT Alirio Hudson MD POINT OF CARE TEST ORDERABLES [facility] [place] [address] * (ABNORMAL) BLOOD GAS 2 ARTERIAL (05/12/2023 2:23 PM EDT) pH, Arterial 7.37 7.35 - 7.45 [facility] PCO2, Arterial 36 35 - 45 mmHg [facility] PO2, Arterial 102 85 - 104 mmHg [facility] Bicarbonate, Arterial 20.4 20.0 - 26.0 mmol/L [facility] Base Excess, Arterial -4.8(L) -3.0 - 3.0 mmol/L [facility] Hgb Blood Gas 12.7 11.7 - 15.5 g/dL [facility] Oxyhemoglobin, Arterial 95.4 94.0 - 97.0 % [facility] Carboxyhemoglob in, Arterial 0.3 % [facility] Comment: Nonsmokers: 0.5-1.5% COHB Smokers: Variable, but usually less than 10% Toxic: 20-30% COHB Lethal: Greater than 60% COHB Methemoglobin, Arterial 0.7 <=1.5 % [facility] Na Whole Blood 129(L) 135 - 145 mmol/L [facility] K Whole Blood 3.7 3.5 - 5.0 mmol/L [facility] Comment: Please note: Patients with WBC >100,000 may have falsely elevated Potassium levels. Contact the Clinical Chemistry Laboratory if there are any questions. ICa Whole Blood 1.05(L) 1.15 - 1.33 mmol/L [facility] Comment: Note: ??Total bilirubin higher than 20 mg/dL may lead to falsely low ionized calcium. CL Whole Blood 95(L) 98 - 107 mmol/L [facility] Gluc Whole Bld 168 65 - 199 mg/dL [facility] Comment:Diabetes: >=200 mg/d L plus symptoms. Lactate WB 1.8 0.5 - 2.2 mmol/L [facility] FIO2 Art 40 % [facility] PF Ratio Art 255 [facility] Blood 05/12/2023 2:23 PM EDT 05/12/2023 2:23 PM EDT Alirio Hudson MD POINT OF CARE TEST ORDERABLES [facility] [place] [address] * (ABNORMAL) Troponin (05/12/2023 2:05 PM EDT) Troponin-T, High Sensitivity 1,022(H) <=14 ng/L [facility] Comment: This patient's troponin T [...] value can be found in the [facility] Test Catalog Troponin - [facility] Test Catalog Reference: Fourth [place] Definition of Myocardial Infarction. Journal of the [employer] 2018;72:1744-0405 Blood 05/12/2023 2:05 PM EDT 05/12/2023 2:14 PM EDT Narrative Resulting Agency Comment Spec In Lab Alirio Hudson MD CHEMISTRY ORDERABLE S Performing Organization Address [facility]/ZIP Co de Phone Number [facility] [place] [address] * (ABNORMAL) Hemoglobin (05/12/2023 2:05 PM EDT) Hemoglobin 8.5(L) 11.7 - 15.5 g/dL [facility] Blood 05/12/2023 2:05 PM EDT 05/12/2023 2:14 PM EDT Narrative Resulting Agency Comment Spec In Lab Alirio Hudson MD HEMATOLOGY ORDERABL ES Performing Organization Address [facility] Co de Phone Number [facility] [place] [address] * Potassium (05/12/2023 2:05 PM EDT) Potassium 3.9 3.5 - 5.0 mmol/L [facility] Comment: Please note: ??Patients with [...] MD CHEMISTRY ORDERABLE S Performing Organization Address [facility] Co de Phone Number [facility] [place] [address] * (ABNORMAL) BLOOD GAS 2 ARTERIAL (05/12/2023 11:05 AM EDT) pH, Arterial 7.34(L) 7.35 - 7.45 [facility] PCO2, Arterial 42 35 - 45 mmHg [facility] PO2, Arterial 73(L) 85 - 104 mmHg [facility] Bicarbonate, Arterial 22.1 20.0 - 26.0 mmol/L [facility] Base Excess, Arterial -3.6(L) -3.0 - 3.0 mmol/L [facility] Hgb Blood Gas 9.3(L) 11.7 - 15.5 g/dL [facility] Oxyhemoglobin, Arterial 89.3(L) 94.0 - 97.0 % [facility] Carboxyhemoglob in, Arterial 0.2 % [facility] Comment: Nonsmokers: 0.5-1.5% COHB Smokers: Variable, but usually less than 10% Toxic: 20-30% COHB Lethal: Greater than 60% COHB Methemoglobin, Arterial 0.9 <=1.5 % [facility] Na Whole Blood 131(L) 135 - 145 mmol/L [facility] K Whole Blood 3.8 3.5 - 5.0 mmol/L [facility] Comment: Please note: Patients with WBC >100,000 may have falsely elevated Potassium levels. Contact the Clinical Chemistry Laboratory if there are any questions. ICa Whole Blood 1.04(L) 1.15 - 1.33 mmol/L [facility] Comment: Note: ??Total bilirubin higher than 20 mg/dL may lead to falsely low ionized calcium. CL Whole Blood 96(L) 98 - 107 mmol/L [facility] Gluc Whole Bld 152 65 - 199 mg/dL [facility] Comment:Diabetes: >=200 mg/d L plus symptoms. Lactate WB 2.8(H) 0.5 - 2.2 mmol/L [facility] FIO2 Art 40 % [facility] PF Ratio Art 182 [facility] Blood 05/12/2023 11:0 5 AM EDT 05/12/2023 11:05 AM EDT Alirio Hudson MD POINT OF CARE TEST ORDERABLES [facility] [place] [place] [address] * (ABNORMAL) BLOOD GAS 2 ARTERIAL (05/12/2023 10:14 AM EDT) pH, Arterial 7.18(Criti gabrielle) 7.35 - 7.45 [facility] Comment:Noted by instrument designer. PCO2, Arterial 45 35 - 45 mmHg [facility] PO2, Arterial 186(H) 85 - 104 mmHg [facility] Bicarbonate, Arterial 16.2(L) 20.0 - 26.0 mmol/L [facility] Base Excess, Arterial -12.2(L) -3.0 - 3.0 mmol/L [facility] Hgb Blood Gas 10.0(L) 11.7 - 15.5 g/dL [facility] Oxyhemoglobin, Arterial 97.0 94.0 - 97.0 % [facility] Carboxyhemoglob in, Arterial 0.2 % [facility] Comment: Nonsmokers: 0.5-1.5% COHB Smokers: Variable, but usually less than 10% Toxic: 20-30% COHB Lethal: Greater than 60% COHB Methemoglobin, Arterial 0.9 <=1.5 % [facility] Na Whole Blood 129(L) 135 - 145 mmol/L [facility] K Whole Blood 3.6 3.5 - 5.0 mmol/L [facility] Comment: Please note: Patients with WBC >100,000 may have falsely elevated Potassium levels. Contact the Clinical Chemistry Laboratory if there are any questions. ICa Whole Blood 1.10(L) 1.15 - 1.33 mmol/L [facility] Comment: Note: ??Total bilirubin higher than 20 mg/dL may lead to falsely low ionized calcium. CL Whole Blood 97(L) 98 - 107 mmol/L [facility] Gluc Whole Bld 161 65 - 199 mg/dL [facility] Comment:Diabetes: >=200 mg/d L plus symptoms. Lactate WB 3.3(H) 0.5 - 2.2 mmol/L [facility] FIO2 Art 100 % [facility] PF Ratio Art 186 [facility] Blood 05/12/2023 10:1 4 AM EDT 05/12/2023 10:14 AM EDT Alirio Hudson MD POINT OF CARE TEST ORDERABLES Performing Organization Address [facility] [place] [address] * EKG 12 Lead (05/12/2023 10:10 AM EDT) Ventricular rate 116 BPM MUSE SYSTEM Atrial Rate 116 BPM MUSE SYSTEM P-R Interval 158 ms MUSE SYSTEM QRS Duration 114 ms MUSE SYSTEM Q-T Interval 348 ms MUSE SYSTEM QTC Calculated (Bezet) 483 ms MUSE SYSTEM Calculated P [place] 37 degrees MUSE SYSTEM Calculated R [place] 31 degrees MUSE SYSTEM Calculated T [place] -138 degrees MUSE SYSTEM INTERPRETATION Sinus tachycardia with intermittent aberrant ventricular conduction Possible Left atrial enlargement Incomplete left bundle block Left ventricular hypertrophy with repolarization abnormality ( Sokolow-Orozco , Thornton product ) ST & T wave abnormality in Inferolateral leads Abnormal ECG When compared with ECG of 10-MAY-2023 13:16, ST & T wave abnormality is more pronounced in inferolateral leads I personally reviewed the tracing and edited the fellows interpretation Confirmed by fellow MD Anuja, Jim ([id number]) on 05/12/2023 1:04:20 PM Confirmed by MD Mono, Eleni ([id number]) on 05/12/2023 9:28:34 PM MUSE SYSTEM 05/12/2023 10:1 0 AM EDT 05/12/2023 9:28 PM EDT Alirio Hudson MD ECG ORDERABLES Performing Organization Address [facility] Co de Phone Number MUSE SYSTEM [...] questions please contact the health respiratory care faculty that requested your imaging first. ? Electronically signed by: Chyna Johnson MD, [facility] ??([phone]), at 05/12/2023 10:08 AM Narrative 05/12/2023 10:08 AM EDT EXAMINATION: XR CHEST ONE VIEW CLINICAL HISTORY: Post TAVR TECHNIQUE: 1 view of the chest COMPARISON: Chest radiograph from earlier today FINDINGS: Interval placement of endotracheal tube with tip terminating 2 cm above the shira. Interval placement of enteric tube projecting along the expected course of the esophagus and outside the evktn-ca-poqp. Interval retraction of right IJ approach pulmonary [...] expected course ofthe esophagus and outside the jkhdj-hp-ggxw. Interval retraction of right IJ approach pulmonary [...] have questions please contactthe health respiratory care faculty that requested your imaging first. Alirio Hudson MD IMG DX ORDERABLES * ECHO LMTD W/O CONTRAST W LMTD SPEC DOPP COLOR DOPP (05/12/2023 9:23 AM EDT) EF 20 HEARTLAB SYSTEM Anatomical Region Laterality Modality Cardiac Other 05/12/2023 7:33 AM EDT Narrative 05/12/2023 10:18 AM EDT ? Echocardiogram Report Name: PURNIMA THACKER ?Study Date: 05/12/2023 07:33 AMBP: 96/63 mmHg ? Patient Location: [address] : 1955 ? Height: 154 cm ? Account: [id number] Age: 67 yrs ? Weight: 75 kg Gender: Female ?BSA: 1.7 m2 Ordering Physician: RADHA HOLLINS Referring Physician: RADHA HOLLINS Performed By: Dilma Bee RDCS Reason For Study: Guidance for TAVR procedure Exam Location: [facility]. Interpretation Summary PRE TAVR: [...] mL/m2. POST TAVR: Normal function of the bprvk-sd-woeme prosthesis. See below for hemodynamic parameters. Slight improvement in left and right ventricular systolic function. LVEF now 20-25%. No pericardial effusion. See report for additional findings. Procedure Limited - 83052. Doppler - 20907. Color Doppler - 51871. Left Ventricle Left ventricle is of normal [...] MD - 05/12/2023 Echocardiogram Report Name: PURNIMA THACEKR Study Date: 307:33 AMBP: 96/63 mmHg Patient Location: [address] : 1955 Height: 154 cm Account: [id number] Age: 67 yrs Weight: 75 kg Gender: Female BSA: 1.7 m2 Ordering Physician: RADHA HOLLINS Referring Physician: RADHA HOLLINS Performed By: Dilma Bee RDCS Reason For Study: Guidance for TAVR procedure Exam Location: [facility]. Interpretation Summary PRE TAVR: [...] 28mL/m2. POST TAVR: Normal function of the iqebe-ee-ribtu prosthesis. See belowfor hemodynamic parameters. Slight improvement in left and right ventricularsystolic function. LVEF now 20-25%. No pericardial effusion. See report for additional findings. Procedure Limited - 01294. Doppler - 09670. Color Doppler - 66194. Left Ventricle Left ventricle is of normal [...] Narrative 05/12/2023 2:37 PM EDT ?[facility] ? Cardiac Catheterization/Intervention Report ? Patient Name: Purnima Thacker. ? Procedure Date: 05/12/2023 ? A #: [id number] ? Primary Physician: Zachary, Antelmo De La Fuente ? Case #: [id number] ? File Name: [id number] ? Catheterization Order Number: [id number] ? [facility] ? Final Report [place], [place] ? Patient Name: ? Purnima M. Kirstie ? ID#: ?[id number] ? : ?1955 ? Procedure Date: ? [...] Device Deployment ?* Temporary Pacemaker Insertion In Tc Operator ?* Endotracheal Intubation By Non-Cath Physician [...] guide. ??A premounted 4.00 x 30 mm Platter [place] ([place]NA) was ? deployed with a maximum [...] calculated STS risk score was 30.1%. A gstpz-jk-vbmid ?procedure was performed on the pre-existing bioprosthetic stented ?prosthesis. The priority of the fjual-iy-jgxql procedure was Elective. ?The procedure was performed [...] Lai 3 Ultra RESILIA 23 mm THV ([id number]/v=[id number]) transcatheter ?valve was inserted using standard technique. [...] ?modification of this regimen. Consult [facility] Interventional [facility]iology for ?questions. ? Conclusions: ?* [...] regimen. ? Comments: ?Successful right transfemoral TAVR Wxkvp-qm-Rytks with a 23 mm Lai 3 ?THV. [...] Antelmo Sharma M.D. ? Electronically Signed by: nAtelmo Sharma M.D. ? Report Finalized: 05/12/2023 ??14:31 ? Report Last Ammended: 07/01/2023 ??11:30 ? Procedure Note Antelmo Sharma MD - 07/01/2023 [facility] Cardiac Catheterization/Intervention Report Patient Name: Purnima Thacker Procedure Date: 05/12/2023 A #: [id number] Primary Physician: Antelmo Sharma Case #: [id number] File Name: [id number] Catheterization Order Number: [id number] [facility] FinalReport [place], [place] Patient Name: Purnima Thacker ID#:[id number] :1955 Procedure Date: May 12, 2023 Case #: [id number] Room: 6 Case Physicians: Antelmo Sharma M.D. Start: 08:03 Alirio Hudson M.D. Admission:05/08/2023 Lynda Mcgowan M.D. Discharge:05/22/2023 Fellow: Rebekah Tejeda M.D. Referring Physician: Mario Alberto Chin M.D. Procedures: * Coronary Angiography * Left Heart Catheterization * Coronary Stent Insertion * Transcatheter Aortic Valve Replacement * Vascular Closure Device Deployment * Temporary Pacemaker Insertion In Tc Operator * Endotracheal Intubation By Non-Cath Physician [...] A premounted 4.00 x 30 mm Nils [place] ([place]NA) was deployed with a maximum inflation [...] calculated STS risk score was 30.1%. A kkaha-dp-dqbyl procedure was performed on the pre-existing bioprosthetic stented prosthesis. The priority of the zclze-th-vfjzr procedure wasElective. The procedure was performed under Moderate sedation performed byLynda Mcgowan M.D. (see anesthesia report for additional details). Alirio Hudson M.D. participated in the case (see Cardiac Surgery reportfor additional details). The TAVR sheath was a 14 Fr Corona eSheath Introducer and theaccess site was femoral. Rapid ventricular pacing was performed. An Corona Lai 3 Ultra RESILIA 23 mm THV (s/z=[id number])transcatheter valve was inserted using standard technique. The [...] modification of this regimen. Consult [facility]iologyfor questions. Conclusions: * Nonobstructive disease [...] this regimen. Comments: Successful right transfemoral TAVR Wtdui-ci-Koykm with a 23 mmSapien 3 THV. We [...] pH, POC 7.20(Crit ical) 7.35 - 7.45 [facility] Comment:Critical value OK, C C Lab. pCO2, POC 42 35 - 45 mmHg [facility] pO2, POC 260(H) 85 - 104 mmHg [facility] Base Excess, POC -11.0(L) -3.0 - 3.0 mmol/L [facility] Bicarbonate, POC 16.7(L) 20.0 - 26.0 mmol/L [facility] Sodium, POC 129(L) 135 - 145 mmol/L [facility] POC Potassium 3.8 3.5 - 5.0 mmol/L [facility] Ionized Calcium, POC 1.12(L) 1.15 - 1.33 mmol/L [facility] POC Hematocrit 23.0(L) 34.0 - 45.0 % [facility] POC Calc Hgb 7.8(L) 11.2 - 15.7 g/dL [facility] Comment:The calculation of h emoglobin from hematocrit assumes a normal MCHC. POC Bgas Loc CC Lab [facility] Blood 05/12/2023 8:50 AM EDT 05/13/2023 12:00 PM EDT Alirio Hudson MD CHEMISTRY ORDERABLE S [facility] [place] [address] * (ABNORMAL) Point of Care Blood Gas Historical (05/12/2023 8:10 AM EDT) pH, POC 7.27(Crit ical) 7.35 - 7.45 [facility] Comment:Critical value OK, C C Lab. pCO2, POC 37 35 - 45 mmHg [facility] pO2, POC 29(Critic al) 85 - 104 mmHg [facility] Comment:Critical value OK, C C Lab. Base Excess, POC -10.0(L) -3.0 - 3.0 mmol/L [facility] Bicarbonate, POC 16.7(L) 20.0 - 26.0 mmol/L [facility] Sodium, POC 123(L) 135 - 145 mmol/L [facility] POC Potassium 4.0 3.5 - 5.0 mmol/L [facility] Ionized Calcium, POC 1.12(L) 1.15 - 1.33 mmol/L [facility] POC Hematocrit 27.0(L) 34.0 - 45.0 % [facility] POC Calc Hgb 9.2(L) 11.2 - 15.7 g/dL [facility] Comment:The calculation of h emoglobin from hematocrit assumes a normal MCHC. POC Bgas Loc CC Lab [facility] Blood 05/12/2023 8:10 AM EDT 05/13/2023 12:00 PM EDT Alirio Hudson MD CHEMISTRY ORDERABLE S Performing Organization Address City/[facility]/ZIP Co de Phone Number [facility] [place] [address] * (ABNORMAL) Lactate, whole blood, send to lab ([facility]) (05/12/2023 7:00 AM EDT) Lactate WB 2.4(H) 0.5 - 2.2 mmol/L [facility] Blood 05/12/2023 7:00 AM EDT 05/12/2023 7:09 AM EDT Narrative Resulting Agency Comment Spec In Lab Radha Hollins MD CHEMISTRY ORDERABL ES Performing Organization Address City/[facility]/ZIP Co de Phone Number [facility] [place] [address] * (ABNORMAL) Comprehensive metabolic panel (non-fasting) (05/12/2023 6:00 AM EDT) Glucose 167 65 - 199 mg/dL [facility] Comment:Diabetes: >=200 mg/d L plus symptoms Blood Urea Nitrogen 67(H) 8 - 18 mg/dL [facility] Creatinine 2.01(H) 0.70 - 1.20 mg/dL [facility] Sodium 131(L) 135 - 145 mmol/L [facility] Potassium 4.3 3.5 - 5.0 mmol/L [facility] Comment: Please note: ??Patients with WBC >100,000 may have falsely elevated Potassium levels. ??For accurate Potassium quantification in these patients send serum separator tube (gold top) for subsequent determinations. ??Contact the Clinical Chemistry Laboratory if there are any questions. Chloride 97(L) 98 - 107 mmol/L [facility] Carbon Dioxide 14(L) 22 - 31 mmol/L [facility] Anion Gap 20(H) 5 - 15 mmol/L [facility] Calcium 8.6 8.5 - 10.5 mg/dL [facility] Protein, Total 6.3 6.1 - 8.0 g/dL [facility] Albumin 3.5 3.2 - 5.2 g/dL [facility] Aspartate Aminotransferase 1,435(H) 0 - 30 unit/L [facility] Alanine Aminotransferase 1,174(H) 0 - 30 unit/L [facility] Alkaline Phosphatase 100 35 - 105 unit/L [facility] Bilirubin, Total 0.9 0.2 - 1.3 mg/dL [facility] Est Glomerular Filtration Rate 27(L) >=60 mL/min/1. 73 m?? [facility] Comment: This patient's estimated GFR [...] MD CHEMISTRY ORDERABL ES Performing Organization Address [facility] Co de Phone Number [facility] [place] [address] * (ABNORMAL) Coox2 (05/12/2023 5:08 AM EDT) pO2, Coox 24 mmHg [facility] Hgb Blood Gas 10.4(L) 11.7 - 15.5 g/dL [facility] Oxyhemoglobin, Coox 30.7 % [facility] Carboxyhemoglo bin, Coox 0.3 % [facility] Comment: Nonsmokers: 0.5-1.5% COHB Smokers: Variable, but usually less than 10% Toxic: 20-30% COHB Lethal: Greater than 60% COHB Methemoglobin, Coox 0.8 <=1.5 % [facility] Source Coox Mixed Venous [facility] Blood 05/12/2023 5:08 AM EDT 05/12/2023 5:08 AM EDT Radha Hollins MD POINT OF CARE TEST ORDERABLES Performing Organization Address [facility] Co de Phone Number [facility] [place] [address] * (ABNORMAL) Coox2 (05/12/2023 3:21 AM EDT) pO2, Coox 25 mmHg [facility] Hgb Blood Gas 10.8(L) 11.7 - 15.5 g/dL [facility] Oxyhemoglobin, Coox 32.7 % [facility] Carboxyhemoglo bin, Coox 0.3 % [facility] Comment: Nonsmokers: 0.5-1.5% COHB Smokers: Variable, but usually less than 10% Toxic: 20-30% COHB Lethal: Greater than 60% COHB Methemoglobin, Coox 0.7 <=1.5 % [facility] Source Coox Mixed Venous [facility] Blood 05/12/2023 3:21 AM EDT 05/12/2023 3:21 AM EDT Radha Hollins MD POINT OF CARE TEST ORDERABLES [facility] [place] [address] * (ABNORMAL) BLOOD GAS 2 ARTERIAL (05/12/2023 3:18 AM EDT) pH, Arterial 7.34(L) 7.35 - 7.45 [facility] PCO2, Arterial 30(L) 35 - 45 mmHg [facility] PO2, Arterial 72(L) 85 - 104 mmHg [facility] Bicarbonate, Arterial 16.0(L) 20.0 - 26.0 mmol/L [facility] Base Excess, Arterial -9.8(L) -3.0 - 3.0 mmol/L [facility] Hgb Blood Gas 11.0(L) 11.7 - 15.5 g/dL [facility] Oxyhemoglobin, Arterial 89.8(L) 94.0 - 97.0 % [facility] Carboxyhemoglob in, Arterial 0.3 % [facility] Comment: Nonsmokers: 0.5-1.5% COHB Smokers: Variable, but usually less than 10% Toxic: 20-30% COHB Lethal: Greater than 60% COHB Methemoglobin, Arterial 0.7 <=1.5 % [facility] Na Whole Blood 131(L) 135 - 145 mmol/L [facility] K Whole Blood 4.2 3.5 - 5.0 mmol/L [facility] Comment: Please note: Patients with WBC >100,000 may have falsely elevated Potassium levels. Contact the Clinical Chemistry Laboratory if there are any questions. ICa Whole Blood 1.12(L) 1.15 - 1.33 mmol/L [facility] Comment: Note: ??Total bilirubin higher than 20 mg/dL may lead to falsely low ionized calcium. CL Whole Blood 100 98 - 107 mmol/L [facility] Gluc Whole Bld 160 65 - 199 mg/dL [facility] Comment:Diabetes: >=200 mg/d L plus symptoms. Lactate WB 2.7(H) 0.5 - 2.2 mmol/L [facility] Flow Art 5.0 LPM [facility] Blood 05/12/2023 3:18 AM EDT 05/12/2023 3:18 AM EDT Radha Hollins MD POINT OF CARE TEST ORDERABLES Performing Organization Address City/[facility] Co de Phone Number [facility] [place] [address] * (ABNORMAL) Coox2 (05/12/2023 1:14 AM EDT) pO2, Coox 28 mmHg [facility] Hgb Blood Gas 10.9(L) 11.7 - 15.5 g/dL [facility] Oxyhemoglobin, Coox 37.3 % [facility] Carboxyhemoglo bin, Coox 0.3 % [facility] Comment: Nonsmokers: 0.5-1.5% COHB Smokers: Variable, but usually less than 10% Toxic: 20-30% COHB Lethal: Greater than 60% COHB Methemoglobin, Coox 0.5 <=1.5 % [facility] Source Coox Mixed Venous [facility] Blood 05/12/2023 1:14 AM EDT 05/12/2023 1:14 AM EDT Radha Hollins MD POINT OF CARE TEST ORDERABLES Performing Organization Address [facility] Co de Phone Number [facility] [place] [address] * (ABNORMAL) BLOOD GAS 2 ARTERIAL (05/12/2023 1:06 AM EDT) pH, Arterial 7.34(L) 7.35 - 7.45 [facility] PCO2, Arterial 30(L) 35 - 45 mmHg [facility] PO2, Arterial 81(L) 85 - 104 mmHg [facility] Bicarbonate, Arterial 15.7(L) 20.0 - 26.0 mmol/L [facility] Base Excess, Arterial -10.1(L) -3.0 - 3.0 mmol/L [facility] Hgb Blood Gas 11.0(L) 11.7 - 15.5 g/dL [facility] Oxyhemoglobin, Arterial 92.3(L) 94.0 - 97.0 % [facility] Carboxyhemoglob in, Arterial 0.2 % [facility] Comment: Nonsmokers: 0.5-1.5% COHB Smokers: Variable, but usually less than 10% Toxic: 20-30% COHB Lethal: Greater than 60% COHB Methemoglobin, Arterial 0.6 <=1.5 % [facility] Na Whole Blood 131(L) 135 - 145 mmol/L [facility] K Whole Blood 4.2 3.5 - 5.0 mmol/L [facility] Comment: Please note: Patients with WBC >100,000 may have falsely elevated Potassium levels. Contact the Clinical Chemistry Laboratory if there are any questions. ICa Whole Blood 1.13(L) 1.15 - 1.33 mmol/L [facility] Comment: Note: ??Total bilirubin higher than 20 mg/dL may lead to falsely low ionized calcium. CL Whole Blood 99 98 - 107 mmol/L [facility] Gluc Whole Bld 132 65 - 199 mg/dL [facility] Comment:Diabetes: >=200 mg/d L plus symptoms. Lactate WB 2.7(H) 0.5 - 2.2 mmol/L [facility] Flow Art 5.0 LPM [facility] Blood 05/12/2023 1:06 AM EDT 05/12/2023 1:06 AM EDT Radha Hollins MD POINT OF CARE TEST ORDERABLES [facility] [place] [address] * (ABNORMAL) Differential, Automated (05/12/2023 1:05 AM EDT) Neutrophil % 83.3 % [facility] Neutrophil Absolute 7.49(H) 1.70 - 6.10 x10(3)/mc L [facility] Lymph % 7.1 % [facility] Lymphocytes Abs 0.6(L) 0.9 - 3.2 x10(3)/mc L [facility] Monocyte % 8.9 % [facility] Monocyte Abs 0.8 0.3 - 0.9 x10(3)/mc L [facility] Eos % 0.0 % [facility] Eosinophils Abs 0.0 0.0 - 0.4 x10(3)/ L [facility] Basophil % 0.1 % [facility] Baso Absolute 0.0 0.0 - 0.1 x10(3)/ L [facility] Immature Gran % 0.60 % [facility] Comment: Immature granulocytes(IG's)percentage and absolute count will include metamyelocytes, myelocytes, and promyelocytes. Blood smears from CBCs yielding IG's will be scanned manually for concordance. If this scan disagrees with the automated IG or if promyelocytes are noted, a manual differential will be performed. Immature Gran Absolute 0.05(H) 0.00 - 0.04 x10(3)/ L [facility] Blood 05/12/2023 1:05 AM EDT 05/12/2023 1:15 AM EDT Narrative Resulting Agency Comment Spec In Lab Gianni Fletcher MD HEMATOLOGY ORDERABLE S [facility] [place] [address] * (ABNORMAL) Hemogram (05/12/2023 1:05 AM EDT) White Blood Cell 9.0 4.0 - 9.5 x10(3)/ L [facility] Red Blood Cell 3.01(L) 4.00 - 5.21 x10(6)/ L [facility] Hemoglobin 9.8(L) 11.7 - 15.5 g/dL [facility] Hematocrit 28.7(L) 35.7 - 45.8 % [facility] Mean Cell Volume 95.3(H) 82.6 - 94.4 fL [facility] Mean Cell Hemoglobin 32.6(H) 27.1 - 32.0 pg [facility] Mean Cell Hemoglobin Concentration 34.1 31.7 - 35.0 g/dL [facility] Platelet 186 145 - 357 x10(3)/ L [facility] RDW Standard Deviation 43.7 37.0 - 46.0 fL [facility] RDW coefficient of variation 12.7 11.5 - 14.1 % [facility] Mean Platelet Volume 10.3 7.6 - 12.9 fL [facility] NRBC% auto 0.0 % [facility] ITAL [facility] NRBC Absolute 0.000 0.000 - 0.000 x10(3)/mc L [facility] Blood 05/12/2023 1:05 AM EDT 05/12/2023 1:15 AM EDT Narrative Resulting Agency Comment Spec In Lab Gianni Fletcher MD HEMATOLOGY ORDERABLE S [facility] [place] [address] * (ABNORMAL) Comprehensive metabolic panel (non-fasting) (05/12/2023 1:05 AM EDT) Glucose 141 65 - 199 mg/dL [facility] Comment:Diabetes: >=200 mg/d L plus symptoms Blood Urea Nitrogen 63(H) 8 - 18 mg/dL [facility] Creatinine 1.86(H) 0.70 - 1.20 mg/dL [facility] Sodium 131(L) 135 - 145 mmol/L [facility] Potassium 4.4 3.5 - 5.0 mmol/L [facility] Comment: Please note: ??Patients with WBC >100,000 may have falsely elevated Potassium levels. ??For accurate Potassium quantification in these patients send serum separator tube (gold top) for subsequent determinations. ??Contact the Clinical Chemistry Laboratory if there are any questions. Chloride 96(L) 98 - 107 mmol/L [facility] Carbon Dioxide 14(L) 22 - 31 mmol/L [facility] Anion Gap 21(H) 5 - 15 mmol/L [facility] Calcium 9.0 8.5 - 10.5 mg/dL [facility] Protein, Total 6.6 6.1 - 8.0 g/dL [facility] Albumin 3.9 3.2 - 5.2 g/dL [facility] Aspartate Aminotransferase 1,227(H) 0 - 30 unit/L [facility] Alanine Aminotransferase 1,097(H) 0 - 30 unit/L [facility] Alkaline Phosphatase 108(H) 35 - 105 unit/L [facility] Bilirubin, Total 1.0 0.2 - 1.3 mg/dL [facility] Est Glomerular Filtration Rate 29(L) >=60 mL/min/1. 73 m?? [facility] Comment: This patient's estimated GFR [...] Lab Radha Hollins MD CHEMISTRY ORDERABL ES [facility] [place] [address] * XR Chest One View (05/12/2023 1:00 [...] questions please contact the health respiratory care faculty that requested your imaging first. ? Narrative [...] have questions please contactthe health respiratory care faculty that requested your imaging first. Radha Hollins MD IMG DX ORDERABLES * (ABNORMAL) Coox2 (05/12/2023 12:30 AM EDT) pO2, Coox 22 mmHg [facility] Hgb Blood Gas 10.9(L) 11.7 - 15.5 g/dL [facility] Oxyhemoglobin, Coox 25.1 % [facility] Carboxyhemoglo bin, Coox 0.3 % [facility] Comment: Nonsmokers: 0.5-1.5% COHB Smokers: Variable, but usually less than 10% Toxic: 20-30% COHB Lethal: Greater than 60% COHB Methemoglobin, Coox 1.4 <=1.5 % [facility] Source Coox Mixed Venous [facility] Blood 05/12/2023 12:3 0 AM EDT 05/12/2023 12:30 AM EDT Radha Hollins MD POINT OF CARE TEST ORDERABLES Performing Organization Address City/State/[facility] Co de Phone Number [facility] [place] [address] * XR Chest One View (05/11/2023 11:45 [...] questions please contact the health respiratory care faculty that requested your imaging first. ? Narrative [...] have questions please contactthe health respiratory care faculty that requested your imaging first. Radha Hollins MD IMG DX ORDERABLES * (ABNORMAL) Lactate, whole blood, send to lab ([facility] (05/11/2023 7:40 PM EDT) Lactate WB 4.8(Critic al) 0.5 - 2.2 mmol/L [facility] Comment:Called by: IMM, Read back by: Magdalena Baires, Date/Time:05/11/23 19:54. Blood 05/11/2023 7:40 PM EDT 05/11/2023 7:49 PM EDT Narrative Resulting Agency Comment Spec In Lab Radha Hollins MD CHEMISTRY ORDERABL ES Performing Organization Address City/[facility]/ZIP Co de Phone Number [facility] [place] [address] * Urine culture (05/11/2023 7:22 PM EDT) [facility] Urine Culture 50,000-99,000 cfu/ml Normal mucosal herman Susceptibilit y testing not routinely performed for Coagulase Negative Staphylococcu s species and other Gram Positive organisms from urine. [facility] Clean Catch Urine 05/11/2023 7:22 PM EDT 05/11/2023 8:50 PM EDT Narrative Resulting Agency Comment Spec In Lab Brody Kaplan APRN MICROBIOLOGY - [place] [address] * (ABNORMAL) Urinalysis Microscopic Exam (05/11/2023 7:22 PM EDT) RBC, Urine 2 0 - 4 /HPF [facility] WBC, Urine >100(H) 0 - 5 /HPF [facility] Bacteria, Urine Occasional (A) None /HPF [facility] Squamous Epithelial Cells Raw Data, Urine 5(H) <=4 /HPF [facility] Hyaline Casts, Urine 3(H) 0 - 2 /LPF [facility] Clean Catch Urine 05/11/2023 7:22 PM EDT 05/11/2023 7:31 PM EDT Narrative Resulting Agency Comment Spec In Lab Brody Kaplan PROCEDURE MANAGER URINE ORDERABLES Performing Organization Address [facility] de Phone Number [facility] [place] [address] * (ABNORMAL) Urinalysis with reflex Culture (05/11/2023 7:22 PM EDT) Glucose, Urine Dipstick Negative Negative mg/dL [facility] Protein, Urine Dipstick Trace(A) Negative mg/dL [facility] Bilirubin, Urine Dipstick Negative Negative mg/dL [facility] Comment: Clinical correlation required for positive Urine Bilirubin results as false positive may occur with some drugs and drug related products. If a false positive is suspected a serum total bilirubin should be considered if clinically indicated. Urobilinogen, Urine Dipstick Normal Normal mg/dL [facility] pH, Urn (dipstick) 5.0 5.0 - 8.0 [facility] Blood, Urine Dipstick Trace(A) Negative mg/dL [facility] Ketone, Urine Dipstick Negative Negative mg/dL [facility] Nitrite, Urine Dipstick Negative Negative [facility] Leukocytes, Urine Dipstick Moderate(A) Negative mcL [facility] Appearance, Urine Dipstick Cloudy(A) Clear [facility] Specific [place] Urine Automated >=1.030(A) 1.005 - 1.030 [facility] Color, Urine Dipstick Yellow Yellow [facility] Reflex to Culture Yes [facility] Clean Catch Urine 05/11/2023 7:22 PM EDT 05/11/2023 7:31 PM EDT Narrative Resulting Agency Comment Spec In Lab Brody Kaplan PROCEDURE MANAGER URINE ORDERABLES Performing Organization Address City/[facility] Co de Phone Number [facility] [place] [address] * (ABNORMAL) pro-Brain Natriuretic Peptide (05/11/2023 7:11 PM EDT) NT-proBNP >35,000(H) <=124 pg/mL [facility] Blood 05/11/2023 7:11 PM EDT 05/11/2023 7:26 PM EDT Narrative Resulting Agency Comment Spec In Lab Radha Hollins MD CHEMISTRY ORDERABL ES Performing Organization Address City/[facility]/ZIP Co de Phone Number [facility] [place] [address] * (ABNORMAL) Lactate, whole blood, send to lab ([facility]) (05/11/2023 2:47 PM EDT) Lactate WB 2.9(H) 0.5 - 2.2 mmol/L [facility] Blood 05/11/2023 2:47 PM EDT 05/11/2023 2:53 PM EDT Narrative Resulting Agency Comment Spec In Lab Juan Luis Gonzalez MD CHEMISTRY ORDERABLES Performing Organization Address [facility] [place] [address] * (ABNORMAL) CT Angiogram Abdomen & Pelvis [...] questions please contact the health respiratory care faculty that requested your imaging first. ? Narrative [...] questions please contact the health respiratory care faculty that requested your imaging first. ? Electronically signed by: Cullen Narayanan MD, [facility] ([phone]), at 05/11/2023 4:37 PM Narrative 05/11/2023 4:37 [...] 610 mm2 Circumference: 88 mm Calcification: Mild Zkydycn-av-beytewki height: Left: 6.2 mm Right: 5.8 mm THORACIC AORTA Description: Normal course and caliber. ??Mild diffuse atherosclerotic changes. No acute aortopathy noted. Sales Development Director dimensions: Aortic root: 27.6 mm Max ascending [...] 610 mm2 Circumference: 88 mm Calcification: Mild Kegebak-zs-hyqjcrrh height: Left: 6.2 mm Right: 5.8 mm THORACIC AORTA Description: Normal course and caliber. Mild diffuse atheroscleroticchanges. No acute aortopathy noted. Sales Development Director dimensions: Aortic root: 27.6 mm Max ascending [...] have questions please contactthe health respiratory care faculty that requested your imaging first. Electronically signed by: Cullen Narayanan MD, [facility]([phone]), at 05/11/2023 4:37 PM Antelmo Sharma MD IMG CT ORDERABLES * (ABNORMAL) Lactate, whole blood, send to lab ([facility]) (05/11/2023 9:29 AM EDT) Pathologist [facility] Lactate WB 3.1(H) 0.5 - 2.2 mmol/L [facility] Blood 05/11/2023 9:29 AM EDT 05/11/2023 9:38 AM EDT Narrative Resulting Agency Comment Spec In Lab Juan Luis Gonzalez MD CHEMISTRY ORDERABLES [facility] [place] [address] * (ABNORMAL) Differential, Automated (05/11/2023 4:42 AM EDT) Pathologist [facility] Neutrophil % 78.1 % [facility] Neutrophil Absolute 5.46 1.70 - 6.10 x10(3)/mc L [facility] Lymph % 10.6 % [facility] Lymphocytes Abs 0.7(L) 0.9 - 3.2 x10(3)/ L [facility] Monocyte % 9.6 % [facility] Monocyte Abs 0.7 0.3 - 0.9 x10(3)/[facility] Eos % 0.0 % [facility] Eosinophils Abs 0.0 0.0 - 0.4 x10(3)/[facility] Basophil % 0.4 % [facility] Baso Absolute 0.0 0.0 - 0.1 x10(3)/[facility] Immature Gran % 1.30 % [facility] Comment: Immature granulocytes(IG's)percentage and absolute count will include metamyelocytes, myelocytes, and promyelocytes. Blood smears from CBCs yielding IG's will be scanned manually for concordance. If this scan disagrees with the automated IG or if promyelocytes are noted, a manual differential will be performed. Immature Gran Absolute 0.09(H) 0.00 - 0.04 x10(3)/ L [facility] Blood 05/11/2023 4:42 AM EDT 05/11/2023 4:49 AM EDT Narrative Resulting Agency Comment Spec In Lab Klaudia Reid MD HEMATOLOGY OR DERABLES Performing Organization Address City/State/[facility] Co de Phone Number [facility] [place] [address] * (ABNORMAL) Hemogram (05/11/2023 4:42 AM EDT) White Blood Cell 7.0 4.0 - 9.5 x10(3)/[facility] Red Blood Cell 3.44(L) 4.00 - 5.21 x10(6)/[facility] Hemoglobin 11.1(L) 11.7 - 15.5 g/dL [facility] Hematocrit 32.7(L) 35.7 - 45.8 % [facility] Mean Cell Volume 95.1(H) 82.6 - 94.4 fL [facility] Mean Cell Hemoglobin 32.3(H) 27.1 - 32.0 pg [facility] Mean Cell Hemoglobin Concentration 33.9 31.7 - 35.0 g/dL [facility] Platelet 165 145 - 357 x10(3)/mc L [facility] RDW Standard Deviation 43.1 37.0 - 46.0 fL [facility] RDW coefficient of variation 12.7 11.5 - 14.1 % [facility] Mean Platelet Volume 10.1 7.6 - 12.9 fL [facility] NRBC% auto 0.0 % [facility] NRBC Absolute 0.000 0.000 - 0.000 x10(3)/mc L [facility] Blood 05/11/2023 4:42 AM EDT 05/11/2023 4:49 AM EDT Narrative Resulting Agency Comment Spec In Lab Klaudia Reid MD HEMATOLOGY OR DERABLES Performing Organization Address City/[facility] de Phone Number [facility] [place] [address] * Heparin (unfractionated) Level (05/11/2023 4:42 AM EDT) UF Heparin 0.46 IU/mL [facility] Comment: Heparin (anti-Xa) levels should be [...] Lab Radha Hollins MD HEMATOLOGY ORDERAB LES [facility] [place] [address] * (ABNORMAL) Comprehensive metabolic panel (non-fasting) (05/11/2023 4:42 AM EDT) Glucose 143 65 - 199 mg/dL [facility] Comment:Diabetes: >=200 mg/d L plus symptoms Blood Urea Nitrogen 42(H) 8 - 18 mg/dL [facility] Creatinine 1.24(H) 0.70 - 1.20 mg/dL [facility] Sodium 134(L) 135 - 145 mmol/L [facility] Potassium 4.6 3.5 - 5.0 mmol/L [facility] Comment: Please note: ??Patients with WBC >100,000 may have falsely elevated Potassium levels. ??For accurate Potassium quantification in these patients send serum separator tube (gold top) for subsequent determinations. ??Contact the Clinical Chemistry Laboratory if there are any questions. Chloride 99 98 - 107 mmol/L [facility] Carbon Dioxide 14(L) 22 - 31 mmol/L [facility] Anion Gap 21(H) 5 - 15 mmol/L [facility] Calcium 9.6 8.5 - 10.5 mg/dL [facility] Protein, Total 7.2 6.1 - 8.0 g/dL [facility] Albumin 3.7 3.2 - 5.2 g/dL [facility] Aspartate Aminotransferase 144(H) 0 - 30 unit/L [facility] Comment:result rechecked-ssc Alanine Aminotransferase 130(H) 0 - 30 unit/L [facility] Comment:result rechecked-ssc Alkaline Phosphatase 72 35 - 105 unit/L [facility] Bilirubin, Total 0.8 0.2 - 1.3 mg/dL [facility] Est Glomerular Filtration Rate 48(L) >=60 mL/min/1. 73 m?? [facility] Comment: This patient's estimated GFR [...] Address City/[facility]/ZIP Co de Phone Number [facility] [place] [address] * EKG 12 Lead (05/10/2023 1:16 PM EDT) Ventricular rate 118 BPM MUSE SYSTEM Atrial Rate 118 BPM MUSE SYSTEM P-R Interval 152 ms MUSE SYSTEM QRS Duration 104 ms MUSE SYSTEM Q-T Interval 316 ms MUSE SYSTEM QTC Calculated (Bezet) 442 ms MUSE SYSTEM Calculated P [place] 29 degrees MUSE SYSTEM Calculated R [place] 18 degrees MUSE SYSTEM Calculated T [place] -173 degrees MUSE SYSTEM INTERPRETATION Sinus tachycardia [...] Anterior leads Confirmed by MD Villareal Danette ([id number]) on 05/10/2023 8:47:46 PM MUSE SYSTEM 05/10/2023 1:16 PM EDT 05/10/2023 8:47 PM EDT Juan Luis Gonzalez MD ECG ORDERABLES Performing Organization Address City/[facility]/ZIP Co de Phone Number MUSE SYSTEM * Lactate, whole blood, send to lab ([facility] (05/10/2023 11:52 AM EDT) Lactate WB 1.8 0.5 - 2.2 mmol/L [facility] Blood 05/10/2023 11:5 2 AM EDT 05/10/2023 12:13 PM EDT Narrative Resulting Agency Comment Spec In Lab Juan Luis Gonzalez MD CHEMISTRY ORDERABLES [facility] [place] [address] * XR Chest One View (05/10/2023 11:16 [...] questions please contact the health respiratory care faculty that requested your imaging first. ? Narrative [...] have questions please contactthe health respiratory care faculty that requested your imaging first. Juan Luis Gonzalez MD IMG DX ORDERABLES * EKG 12 Lead (05/10/2023 7:59 AM EDT) Ventricular rate 115 BPM MUSE SYSTEM Atrial Rate 115 BPM MUSE SYSTEM P-R Interval 142 ms MUSE SYSTEM QRS Duration 102 ms MUSE SYSTEM Q-T Interval 322 ms MUSE SYSTEM QTC Calculated (Bezet) 445 ms MUSE SYSTEM Calculated P [place] 36 degrees MUSE SYSTEM Calculated R [place] 28 degrees MUSE SYSTEM Calculated T [place] -119 degrees MUSE SYSTEM INTERPRETATION Sinus tachycardia with frequent Premature ventricular complexes and Fusion complexes ST & T wave abnormality, consider lateral ischemia Abnormal ECG When compared with ECG of 08-MAY-2023 15:51, No significant change was found I personally reviewed the tracing and edited the fellows interpretation Confirmed by fellow MD Welsh Hanyuan ([id number]) on 05/11/2023 6:19:54 AM Confirmed by MD Ugalde Hannah ([id number]) on 05/11/2023 3:18:56 PM MUSE SYSTEM 05/10/2023 7:59 AM EDT 05/11/2023 3:18 PM EDT Radha Hollins MD ECG ORDERABLES MUSE SYSTEM * (ABNORMAL) Differential, Automated (05/10/2023 2:28 AM EDT) Neutrophil % 77.1 % [facility] Neutrophil Absolute 4.01 1.70 - 6.10 x10(3)/mc L [facility] Lymph % 14.0 % [facility] Lymphocytes Abs 0.7(L) 0.9 - 3.2 x10(3)/mc L [facility] Monocyte % 7.7 % [facility]ORAT[facility] Monocyte Abs 0.4 0.3 - 0.9 x10(3)/ L [facility] Eos % 0.4 % [facility] Eosinophils Abs 0.0 0.0 - 0.4 x10(3)/[facility] Basophil % 0.4 % [facility] Baso Absolute 0.0 0.0 - 0.1 x10(3)/ L [facility] Immature Gran % 0.40 % [facility] Comment: Immature granulocytes(IG's)percentage and absolute count will include metamyelocytes, myelocytes, and promyelocytes. Blood smears from CBCs yielding IG's will be scanned manually for concordance. If this scan disagrees with the automated IG or if promyelocytes are noted, a manual differential will be performed. Immature Gran Absolute 0.02 0.00 - 0.04 x10(3)/ L [facility] Blood 05/10/2023 2:28 AM EDT 05/10/2023 2:57 AM EDT Narrative Resulting Agency Comment Spec In Lab Klaudia Reid MD HEMATOLOGY OR DERABLES [facility] [place] [address] * (ABNORMAL) Hemogram (05/10/2023 2:28 AM EDT) White Blood Cell 5.2 4.0 - 9.5 x10(3)/mc L [facility] Red Blood Cell 3.11(L) 4.00 - 5.21 x10(6)/mc L [facility] Hemoglobin 10.2(L) 11.7 - 15.5 g/dL [facility] Hematocrit 30.2(L) 35.7 - 45.8 % [facility] Mean Cell Volume 97.1(H) 82.6 - 94.4 fL [facility] Mean Cell Hemoglobin 32.8(H) 27.1 - 32.0 pg [facility] Mean Cell Hemoglobin Concentration 33.8 31.7 - 35.0 g/dL [facility] Platelet 151 145 - 357 x10(3)/mc L [facility] RDW Standard Deviation 44.9 37.0 - 46.0 fL [facility] RDW coefficient of variation 12.8 11.5 - 14.1 % [facility] Mean Platelet Volume 9.8 7.6 - 12.9 fL [facility] NRBC% auto 0.0 % [facility] NRBC Absolute 0.000 0.000 - 0.000 x10(3)/mc L [facility] Blood 05/10/2023 2:28 AM EDT 05/10/2023 2:57 AM EDT Narrative Resulting Agency Comment Spec In Lab Klaudia Reid MD HEMATOLOGY OR DERABLES Performing Organization Address City/State/[facility] Co de Phone Number [facility] [place] [address] * (ABNORMAL) Comprehensive metabolic panel (non-fasting) (05/10/2023 2:28 AM EDT) Glucose 100 65 - 199 mg/dL [facility] Comment:Diabetes: >=200 mg/d L plus symptoms Blood Urea Nitrogen 30(H) 8 - 18 mg/dL [facility] Creatinine 0.90 0.70 - 1.20 mg/dL [facility] Sodium 134(L) 135 - 145 mmol/L [facility] Potassium 4.1 3.5 - 5.0 mmol/L [facility] Comment: Please note: ??Patients with WBC >100,000 may have falsely elevated Potassium levels. ??For accurate Potassium quantification in these patients send serum separator tube (gold top) for subsequent determinations. ??Contact the Clinical Chemistry Laboratory if there are any questions. Chloride 102 98 - 107 mmol/L [facility] Carbon Dioxide 20(L) 22 - 31 mmol/L [facility] Anion Gap 12 5 - 15 mmol/L [facility] Calcium 9.3 8.5 - 10.5 mg/dL [facility] Protein, Total 6.4 6.1 - 8.0 g/dL [facility] Albumin 3.7 3.2 - 5.2 g/dL [facility] Aspartate Aminotransferase 24 0 - 30 unit/L [facility] Alanine Aminotransferase 14 0 - 30 unit/L [facility] Alkaline Phosphatase 70 35 - 105 unit/L [facility] Bilirubin, Total 0.5 0.2 - 1.3 mg/dL [facility] Est Glomerular Filtration Rate 70 >=60 mL/min/1. 73 m?? [facility] Comment: This patient's estimated GFR [...] Lab Radha Hollins MD CHEMISTRY ORDERABL ES [facility] [place] [address] * Heparin (unfractionated) Level (05/10/2023 2:28 AM EDT) UF Heparin 0.37 IU/mL [facility] Comment: Heparin [...] Lab Radha Hollins MD HEMATOLOGY ORDERAB LES [facility] [place] [address] * (ABNORMAL) Differential, Automated (05/09/2023 4:00 AM EDT) Neutrophil % 81.7 % [facility] Neutrophil Absolute 5.26 1.70 - 6.10 x10(3)/mc L [facility] Lymph % 10.7 % [facility] Lymphocytes Abs 0.7(L) 0.9 - 3.2 x10(3)/mc L [facility] LABORATORY Monocyte % 6.5 % [facility] LABORATORY Monocyte Abs 0.4 0.3 - 0.9 x10(3)/mc L [facility] Eos % 0.5 % [facility] LAB[facility]ORY Eosinophils Abs 0.0 0.0 - 0.4 x10(3)/mc L [facility] Basophil % 0.3 % [facility] LABORATORY Baso Absolute 0.0 0.0 - 0.1 x10(3)/mc L [facility] Immature Gran % 0.30 % [facility] Comment: Immature granulocytes(IG's)percentage and absolute count will include metamyelocytes, myelocytes, and promyelocytes. Blood smears from CBCs yielding IG's will be scanned manually for concordance. If this scan disagrees with the automated IG or if promyelocytes are noted, a manual differential will be performed. Immature Gran Absolute 0.02 0.00 - 0.04 x10(3)/mc L [facility] Blood 05/09/2023 4:00 AM EDT 05/09/2023 4:19 AM EDT Narrative Resulting Agency Comment Spec In Lab Klaudia Reid MD HEMATOLOGY OR DERABLES [facility] [place] [address] * (ABNORMAL) Hemogram (05/09/2023 4:00 AM EDT) White Blood Cell 6.4 4.0 - 9.5 x10(3)/mc L [facility] Red Blood Cell 3.15(L) 4.00 - 5.21 x10(6)/mc L [facility] Hemoglobin 10.2(L) 11.7 - 15.5 g/dL [facility] Hematocrit 30.3(L) 35.7 - 45.8 % [facility] Mean Cell Volume 96.2(H) 82.6 - 94.4 fL [facility] Mean Cell Hemoglobin 32.4(H) 27.1 - 32.0 pg [facility] Mean Cell Hemoglobin Concentration 33.7 31.7 - 35.0 g/dL [facility] Platelet 151 145 - 357 x10(3)/mc L [facility] RDW Standard Deviation 44.7 37.0 - 46.0 fL [facility] RDW coefficient of variation 12.8 11.5 - 14.1 % [facility] Mean Platelet Volume 9.4 7.6 - 12.9 fL [facility] NRBC% auto 0.0 % [facility] LABORATORY NRBC Absolute 0.000 0.000 - 0.000 x10(3)/mc L [facility] Blood 05/09/2023 4:00 AM EDT 05/09/2023 4:19 AM EDT Narrative Resulting Agency Comment Spec In Lab Klaudia Reid MD HEMATOLOGY OR DERABLES Performing Organization Address City/[facility]/ZIP Co de Phone Number [facility] [place] [address] * Heparin (unfractionated) Level (05/09/2023 4:00 AM EDT) UF Heparin 0.47 IU/mL [facility] IT[facility] LABORATORY Comment: Heparin [...] MD HEMATOLOGY ORDERAB LES Performing Organization Address City/State/[facility] Co de Phone Number [facility] [place] [address] * (ABNORMAL) Comprehensive metabolic panel (non-fasting) (05/09/2023 4:00 AM EDT) Glucose 108 65 - 199 mg/dL [facility] Comment:Diabetes: >=200 mg/d L plus symptoms Blood Urea Nitrogen 31(H) 8 - 18 mg/dL [facility] Creatinine 1.03 0.70 - 1.20 mg/dL [facility] Sodium 137 135 - 145 mmol/L [facility] Potassium 4.4 3.5 - 5.0 mmol/L [facility] Comment: Please note: ??Patients with WBC >100,000 may have falsely elevated Potassium levels. ??For accurate Potassium quantification in these patients send serum separator tube (gold top) for subsequent determinations. ??Contact the Clinical Chemistry Laboratory if there are any questions. Chloride 102 98 - 107 mmol/L [facility] Carbon Dioxide 20(L) 22 - 31 mmol/L [facility] Anion Gap 15 5 - 15 mmol/L [facility] Calcium 9.3 8.5 - 10.5 mg/dL [facility] Protein, Total 6.6 6.1 - 8.0 g/dL [facility] Albumin 3.8 3.2 - 5.2 g/dL [facility] Aspartate Aminotransferase 32(H) 0 - 30 unit/L [facility] Alanine Aminotransferase 18 0 - 30 unit/L [facility] Alkaline Phosphatase 78 35 - 105 unit/L [facility] Bilirubin, Total 0.5 0.2 - 1.3 mg/dL [facility] Est Glomerular Filtration Rate 60 >=60 mL/min/1. 73 m?? [facility] Comment: This patient's estimated GFR [...] MD CHEMISTRY ORDERABL ES Performing Organization Address [facility] Co de Phone Number [facility] [place] [address] * (ABNORMAL) pro-Brain Natriuretic Peptide (05/08/2023 4:00 PM EDT) NT-proBNP 25,503(H) <=124 pg/mL [facility] Blood Venous Draw / Unknown 05/08/2023 4:00 PM EDT 05/08/2023 4:25 PM EDT Narrative Resulting Agency Comment Spec In Lab Juan Luis Gonzalez MD CHEMISTRY ORDERABLES Performing Organization Address City/[facility]/ZIP Co de Phone Number [facility] [place] [address] * Magnesium (05/08/2023 4:00 PM EDT) Magnesium 0.82 0.69 - 1.07 mmol/L [facility] Blood 05/08/2023 4:00 PM EDT 05/08/2023 4:06 PM EDT Narrative Resulting Agency Comment Spec In Lab Enrique Chua MD CHEMISTRY ORDERABLES Performing Organization Address [facility] Co de Phone Number [facility] [place] [address] * Potassium (05/08/2023 4:00 PM EDT) Pathologist [facility] Potassium 3.9 3.5 - 5.0 mmol/L [facility] Comment: Please note: [...] MD CHEMISTRY ORDERABL ES Performing Organization Address [facility] de Phone Number [facility] [place] [address] * Heparin (unfractionated) Level (05/08/2023 4:00 PM EDT) Pathologist [facility] UF Heparin 0.43 IU/mL [facility] HOS[facility] ITAL LABORATORY Comment: Heparin [...] Lab Radha Hollins MD HEMATOLOGY ORDERAB LES [facility] [place] [address] * EKG 12 Lead (05/08/2023 3:51 PM EDT) Pathologist [facility] Ventricular rate 98 BPM MUSE SYSTEM Atrial Rate 98 BPM MUSE SYSTEM P-R Interval 150 ms MUSE SYSTEM QRS Duration 102 ms MUSE SYSTEM Q-T Interval 358 ms MUSE SYSTEM QTC Calculated (Bezet) 457 ms MUSE SYSTEM Calculated P [place] 38 degrees MUSE SYSTEM Calculated R [place] 48 degrees MUSE SYSTEM Calculated T [place] -112 degrees MUSE SYSTEM INTERPRETATION Sinus rhythm with frequent and consecutive Premature ventricular and fusion complexes Septal infarct , age undetermined ST & T wave abnormality, consider anterolateral ischemia Abnormal ECG When compared with ECG of 09-NOV-2022 11:17, T wave inversion now evident in Anterolateral leads Confirmed by MD Harshil, Enrique Bell ([id number]) on 05/10/2023 8:11:46 AM MUSE SYSTEM 05/08/2023 3:51 PM EDT 05/10/2023 8:11 AM EDT Radha Hollins MD ECG ORDERABLES Performing Organization Address City/[facility]/ZIP Co de Phone Number MUSE SYSTEM * (ABNORMAL) Differential, Automated (05/08/2023 11:38 AM EDT) [facility] Neutrophil % 71.3 % [facility] Neutrophil Absolute 2.91 1.70 - 6.10 x10(3)/mc L [facility] Lymph % 19.1 % [facility] Lymphocytes Abs 0.8(L) 0.9 - 3.2 x10(3)/mc L [facility] Monocyte % 9.0 % [facility]ORAT[facility] Monocyte Abs 0.4 0.3 - 0.9 x10(3)/mc L [facility] Eos % 0.2 % [facility] Eosinophils Abs 0.0 0.0 - 0.4 x10(3)/mc L [facility] Basophil % 0.2 % [facility] Baso Absolute 0.0 0.0 - 0.1 x10(3)/mc L [facility] Immature Gran % 0.20 % [facility] Comment: Immature granulocytes(IG's)percentage and absolute count will include metamyelocytes, myelocytes, and promyelocytes. Blood smears from CBCs yielding IG's will be scanned manually for concordance. If this scan disagrees with the automated IG or if promyelocytes are noted, a manual differential will be performed. Immature Gran Absolute 0.01 0.00 - 0.04 x10(3)/ L [facility] Blood 05/08/2023 11:3 8 AM EDT 05/08/2023 11:44 AM EDT Narrative Resulting Agency Comment Spec In Lab Lincoln Sal MD HEMATOLOGY ORDERA BLES Performing Organization Address City/State/[facility] Co de Phone Number [facility] [place] [address] * (ABNORMAL) Hemogram (05/08/2023 11:38 AM EDT) White Blood Cell 4.1 4.0 - 9.5 x10(3)/ L [facility] Red Blood Cell 3.05(L) 4.00 - 5.21 x10(6)/[facility] LABORATORY Hemoglobin 10.2(L) 11.7 - 15.5 g/dL [facility] Hematocrit 29.6(L) 35.7 - 45.8 % [facility] Mean Cell Volume 97.0(H) 82.6 - 94.4 fL [facility] Mean Cell Hemoglobin 33.4(H) 27.1 - 32.0 pg [facility] Mean Cell Hemoglobin Concentration 34.5 31.7 - 35.0 g/dL [facility] Platelet 136(L) 145 - 357 x10(3)/mc [facility] RDW Standard Deviation 44.3 37.0 - 46.0 fL [facility] RDW coefficient of variation 12.6 11.5 - 14.1 % [facility] Mean Platelet Volume 9.4 7.6 - 12.9 fL [facility] NRBC% auto 0.0 % [facility]OSP IT[facility] LABORAT[facility] NRBC Absolute 0.000 0.000 - 0.000 x10(3)/mc L [facility] Blood 05/08/2023 11:3 8 AM EDT 05/08/2023 11:44 AM EDT Narrative Resulting Agency Comment Spec In Lab Lincoln Sal MD HEMATOLOGY ORDERA BLES Performing Organization Address City/[facility]/ZIP Co de Phone Number [facility] [place] [address] * TSH (05/08/2023 11:38 AM EDT) Thyroid Stimulating Hormone 1.27 0.27 - 4.20 mcIU/mL [facility] Comment: Reference Interval (mcIU/mL): Females: ??First Trimester: 0.23-3.88 ??Second Trimester: 0.22-3.90 ??Third Trimester: 0.44-4.66 Blood 05/08/2023 11:3 8 AM EDT 05/08/2023 11:44 AM EDT Narrative Resulting Agency Comment Spec In Lab Enrique Chua MD CHEMISTRY ORDERABLES Performing Organization Address [facility] Co de Phone Number [facility] [place] [address] * (ABNORMAL) Phosphorus (05/08/2023 11:38 AM EDT) Phosphorus 4.7(H) 2.5 - 4.5 mg/dL [facility] Blood 05/08/2023 11:3 8 AM EDT 05/08/2023 11:44 AM EDT Narrative Resulting Agency Comment Spec In Lab Enrique Chua MD CHEMISTRY ORDERABLES Performing Organization Address [facility] Co de Phone Number [facility] [place] [address] * Magnesium (05/08/2023 11:38 AM EDT) Magnesium 0.76 0.69 - 1.07 mmol/L [facility] Blood 05/08/2023 11:3 8 AM EDT 05/08/2023 11:44 AM EDT Narrative Resulting Agency Comment Spec In Lab Enrique Chua MD CHEMISTRY ORDERABLES Performing Organization Address City/State/[facility] Co de Phone Number [facility] [place] [address] * (ABNORMAL) Basic Metabolic Panel (non-fasting) (05/08/2023 11:38 AM EDT) Glucose 97 65 - 199 mg/dL [facility] Comment:Diabetes: >=200 mg/d L plus symptoms Blood Urea Nitrogen 27(H) 8 - 18 mg/dL [facility] Creatinine 1.02 0.70 - 1.20 mg/dL [facility] Sodium 139 135 - 145 mmol/L [facility] Potassium 4.2 3.5 - 5.0 mmol/L [facility] Comment: Please note: ??Patients with WBC >100,000 may have falsely elevated Potassium levels. ??For accurate Potassium quantification in these patients send serum separator tube (gold top) for subsequent determinations. ??Contact the Clinical Chemistry Laboratory if there are any questions. Chloride 105 98 - 107 mmol/L [facility] Carbon Dioxide 20(L) 22 - 31 mmol/L [facility] Anion Gap 14 5 - 15 mmol/L [facility] Calcium 9.4 8.5 - 10.5 mg/dL [facility] Est Glomerular Filtration Rate 60 >=60 mL/min/1. 73 m?? [facility] Comment: This patient's estimated GFR [...] In Lab Enrique Chua MD CHEMISTRY ORDERABLES [facility] [place] [address] * ECHO COMPLETE (05/08/2023 11:02 AM EDT) EF 25 HEARTLAB SYSTEM Anatomical Region Laterality Modality Cardiac Other 05/08/2023 10:0 3 AM EDT Narrative 05/08/2023 11:51 AM EDT ? Echocardiogram Report Name: PURNIMA THACKER ?Study Date: 05/08/2023 10:03 AMBP: 92/64 mmHg ? Patient Location: [facility]^CV29^A : 1955 ? Height: 155 cm ? Account: [id number] Age: 67 yrs ? Weight: 78 kg Gender: Female ?BSA: 1.8 m2 Ordering Physician: ENRIQUE CHUA Referring Physician: MARIO ALBERTO CHIN Performed By: HCUCKIE Canchola Reason For Study: SAVR Stenosis Exam Location: [facility]. Interpretation Summary -Left ventricle [...] worsening stenosis. Mitral regurgitation is similar. Procedure Complete-82551. Satisfactory quality. There is normal sinus rhythm. [...] 0:03 AMBP: 92/64 mmHg Patient Location:[facility]^CV29^A : 1955 Height: 155 cm Account: [id number] Age: 67 yrs Weight: 78 kg Gender: Female BSA: 1.8 m2 Ordering Physician: ENRIQUE CHUA Referring Physician: MARIO ALBERTO CHIN Performed By: CHUCKIE Canchola Reason For Study: SAVR Stenosis Exam Location: [facility]. Interpretation Summary -Left ventricle is severely dilated (LVEDV index 81 mL/m2). Leftventricular systolic function is severely reduced. The left ventricular ejectionfraction is 25% by Asmuel's biplane. There is [...] suggestsworsening stenosis. Mitral regurgitation is similar. Procedure Complete-34341. Satisfactory quality. There is normal sinus rhythm. 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
--- OUTSIDE RECORDS SUMMARY | 2024-06-15 14:12 | XMS_ITS | Encounter Summary ---
Author Organization [facility] Address [facility] [place] [address] Care Team Providers Care Garment Tag Stringer Name Role Phone Magdalena Acosta MD Primary Care Provider [phone] Encounter Details Date Type Department Care Team (Late st Contact Info) Description 03/29/2023 Orders Only Cardiology at [address] [address] Ranjan Delgado MD [facility] [place] [address] Severe aortic stenosis (Primary Dx) Social History [...] EST Office Visit Hematology [place] [address] Markel Borjas MD [facility] [address] HEMATOLOGY AND ONCOLOGY [place], [place] [id number] 11/02/2024 12:00 PM EDT Appointment [place] [address] 11/02/2024 1:00 PM EDT Office [place] [address] Magdalena Peralta MD [facility] [place] [address] 03/01/2025 4:15 PM EDT Office Visit Dermatology at [place] [address] [place] [phone] Marek Bonilla MD [address] [place] [address] Scheduled Orders Name Type Priority Associated Diagnoses [...] disorders documented in this encounter Care Teams Garment Tag Stringer Relationship Specialty Start Date End Date Magdalena Acosta MD [address] [place] [address] PCP - General Family Medicine 02/05/23 documented as of this encounter
--- OUTSIDE RECORDS SUMMARY | 2024-06-15 14:12 | XMS_ITS | Encounter Summary ---
Author Organization [facility] [place] [address] Care Team Providers Care Dynamometer Mechanic Name Role Phone Winter Quiroga APRN Primary Care Provider [phone] Encounter Details Date Type Department Care Team (Late st Contact Info) Description 06/05/2021 Interpretation Only [address] [phone] Winter Quiroga APRN [address] [phone] Social History Tobacco Use Types Packs/Day Years [...] EST Office Visit [place] [phone] Markel Borjas MD [facility] [address] HEMATOLOGY [place] [address] 11/02/2024 12:00 PM EDT [place] [phone] 11/02/2024 1:00 PM EDT [place] [address] Magdalena Peralta MD [facility] [place] [address] 03/01/2025 4:15 PM EDT Office Visit Dermatology at [place] [address] [place] [address] Marek Bonilla MD [address] [place] [address] documented as of this encounter Procedures Procedure Name Priority Date/Time Associated Diagnosis Comments MAMMO SCREENING CAD AND CATRACHITO BILATERAL Routine 06/05/2021 11:42 AM EDT documented in this encounter Results * Mammo Screening Cad and Catrachito Bilateral (06/05/2021 11:42 AM EDT) PT CLASS O DH RAD ADMITDTTM DH RAD PT DH RAD INFO [phone]^EVERET T^WINTER^E DH RAD EXAM DESC MADDSCTO^BREAST SCREEN [...] who have questions please contact the health sub acute care nurse that requested your imaging first. ? Electronically signed by: Rocael Villatoro MD, [facility] ([phone]), at 06/05/2021 1:27 PM Narrative 06/05/2021 1:27 [...] patients who have questions please contactthe health sub acute care nurse that requested your imaging first. Electronically signed by: Rocael Villatoro MD, [facility]([phone]), at 06/05/2021 1:27 PM Winter Quiroga APRN IMG MAMMO ORDERABLE S documented in this encounter Visit Diagnoses Not on filedocumented in this encounter Care Teams Dynamometer Mechanic Relationship Specialty Start Date End Date Winter Quiroga APRN PCP - General Family Medicine 03/24/16 02/04/23 documented as of this encounter
--- OUTSIDE RECORDS SUMMARY | 2024-06-15 14:12 | XMS_ITS | Encounter Summary ---
Author Organization [facility] Address [facility] [place] [address] Care Team Providers Care Clothes Wringer Name Role Phone Deborah Quiroga APRN Primary Care Provider [phone] Reason for Visit * Consultation (Routine) - Closed Specialty Diagnoses / Procedures Referred By Contkrystle t Referred To Contact Rheumatology Diagnoses Positive FRANCISCO (antinuclear antibody) Arthralgia, unspecified joint Sandy Wu APRN [address] [place] [address] [facility] Rheumat[facility] [address] [place] [address] Referral ID Status Reason Start Date Expiration Date V isits Requested Visits Authorized [id number] Closed Consult, Test & Treat PCP Updated and/or Approved 01/01/2022 01/01/2023 6 6 Encounter Details Date Type Department Care Team (Latest Contact Info) Description 01/20/2022 10:00 AM EDT Office [place] [address] Raymond Loredo MD [facility] [place] [address] Rosacea; Raynaud's phenomenon without gangrene; [...] over radiocarpal or ulnocarpal joints. Hands: Normal food and beverage controller and claw. SJC/TJC 0/0. Hips: Full motion, [...] Visit Hematology and Oncology at [place] [phone] Markel Borjas MD [facility] [address] HEMATOLOGY [place] [address] 11/02/2024 12:00 PM EDT Appointment Pulmonology at [place] [address] 11/02/2024 1:00 PM EDT Office Visit Rheumatology at [place] [address] Magdalena Peralta MD [facility] [place] [address] 03/01/2025 4:15 PM EDT Office Visit Dermatology at [place] [address] [place] [address] Marek Bonilla MD [address] [facility] [place] [address] Scheduled Referrals Name Type Priority Associated Diagnoses [...] syndrome documented in this encounter Care Teams Clothes Wringer Relationship Specialty Start Date End Date Deborah Quiroga APRN PCP - General Family Medicine 03/24/16 02/04/23 documented as of this encounter
--- OUTSIDE RECORDS SUMMARY | 2024-06-15 14:12 | XMS_ITS | Encounter Summary ---
Author Organization [facility] [place] [address] Care Team Providers Care Field Operations Manager Name Role Phone JunaidAshley hargrovezac Shields APRN Primary Care Provider [phone] Encounter Details Date Type Department Care Team (Late st Contact Info) Description 11/02/2022 Orders Only [place] [address] Emily Lyons PA [facility] CARDIOLOGY [place], [place] [phone] Aortic valve stenosis, etiology of cardiac valve [...] EST Office Visit Hematology [place] [address] Markel Borjas MD [facility] HEMATOLOGY AND ONCOLOGY [place], [place] [phone] 11/02/2024 12:00 PM EDT Appointment [place] [address] 11/02/2024 1:00 PM EDT Office [place] [address] Magdalena Peralta MD [facility] [place] [address] 03/01/2025 4:15 PM EDT Office Visit Dermatology at [place] [address] [facility] [place] [phone] Marek Bonilla MD [address] [facility] [place] [address] documented as of this encounter Visit Diagnoses Diagnosis Aortic valve stenosis, etiology of cardiac valve disease unspecified documented in this encounter Care Teams Field Operations Manager Relationship Specialty Start Date End Date Deborah Quiroga APRN PCP - General Family Medicine 03/24/16 02/04/23 documented as of this encounter
--- OUTSIDE RECORDS SUMMARY | 2024-06-15 14:12 | XMS_ITS | Encounter Summary ---
Author Organization Formerly [facility] [place] [address] Care Team Providers Care Customer Project Manager Name Role Phone Magdalena Acosta MD Primary Care Provider [phone] Encounter Details Date Type Department Care Team (Latest Contact Info) Description 03/18/2023 2:30 PM EDT Laboratory Appointment Lab [address] [address] Positive FRANCISCO (antinuclear antibody) Social [...] EST Office Visit H[place] [address] Markel Borjas MD [facility] [address] [place] [address] 11/02/2024 12:00 PM EDT Appointment [place] [address] 11/02/2024 1:00 PM EDT Office [place] [address] Magdalena Peralta MD [facility] [place] [address] 03/01/2025 4:15 PM EDT Office Visit Dermatology at [place] [address] [place] [phone] Marek Bonilla MD [address], [place] [address] documented as of this encounter Procedures Procedure [...] Routine 03/18/2023 2: 14 PM EDT Positive RFANCISCO (antinuclear antibody) CBC (WITH DIFF) Routine 03/18/2023 2:14 PM EDT Positive FRANCISCO (antinuclear antibody) C3 COMPLEMENT Routine 03/18/2023 2:14 PM EDT Positive FRANCISCO (antinuclear antibody) C4 COMPLEMENT Routine 03/18/2023 2:14 PM EDT Positive FRACNISCO (antinuclear antibody) CK Routine 03/18/2023 2:14 PM EDT Positive FRANCISCO (antinuclear antibody) COMPREHENSIVE METABOLIC PANEL Routine 03/18/2023 2:14 PM EDT Positive FRANCISCO (antinuclear antibody) documented in this encounter Results * (ABNORMAL) Differential, Automated (03/18/2023 2:14 PM EDT) Neutrophil % 71.2 % [facility] Neutrophil Absolute 2.26 1.70 - 6.10 x10(3)/mc L [facility] Lymph % 18.2 % [facility] Lymphocytes Abs 0.6(L) 0.9 - 3.2 x10(3)/mc L [facility] Monocyte % 9.7 % [facility] Monocyte Abs 0.3 0.3 - 0.9 x10(3)/ L [facility] Eos % 0.3 % [facility] Eosinophils Abs 0.0 0.0 - 0.4 x10(3)/mc L [facility] Basophil % 0.6 % [facility] Baso Absolute 0.0 0.0 - 0.1 x10(3)/mc L [facility] Immature Gran % 0.00 % [facility] Comment: Immature granulocytes(IG's)percentage and absolute count will include metamyelocytes, myelocytes, and promyelocytes. Blood smears from CBCs yielding IG's will be scanned manually for concordance. If this scan disagrees with the automated IG or if promyelocytes are noted, a manual differential will be performed. Immature Gran Absolute 0.00 0.00 - 0.04 x10(3)/mc L [facility] Blood 03/18/2023 2:14 PM EDT 03/18/2023 2:24 PM EDT Narrative Resulting Agency Comment Spec In Lab Magdalena Peralta MD HEMATOLOGY ORDERABLE S [facility] [place] [place] [address] * (ABNORMAL) Hemogram (03/18/2023 2:14 PM EDT) White Blood Cell 3.2(L) 4.0 - 9.5 x10(3)/mc L [facility] Red Blood Cell 3.44(L) 4.00 - 5.21 x10(6)/mc L [facility] Hemoglobin 11.1(L) 11.7 - 15.5 g/dL [facility] Hematocrit 32.9(L) 35.7 - 45.8 % [facility] Mean Cell Volume 95.6(H) 82.6 - 94.4 fL [facility] Mean Cell Hemoglobin 32.3(H) 27.1 - 32.0 pg [facility] Mean Cell Hemoglobin Concentration 33.7 31.7 - 35.0 g/dL [facility] Platelet 144(L) 145 - 357 x10(3)/mc L [facility] RDW Standard Deviation 42.6 37.0 - 46.0 fL [facility] RDW coefficient of variation 12.3 11.5 - 14.1 % [facility] Mean Platelet Volume 9.4 7.6 - 12.9 fL [facility] NRBC% auto 0.0 % [facility] NRBC Absolute 0.000 0.000 - 0.000 x10(3)/mc L [facility] Blood 03/18/2023 2:14 PM EDT 03/18/2023 2:24 PM EDT Narrative Resulting Agency Comment Spec In Lab Magdalena Peralta MD HEMATOLOGY ORDERABLE S Performing Organization Address [facility] Co de Phone Number [facility] [place] [place] [address] * (ABNORMAL) Sedimentation rate (03/18/2023 2:14 PM EDT) Sedimentation Rate Automated 68(H) 2 - 39 mm/hr [facility] Comment: Effective July 12, 2019 new capillary photometric technology has resulted in a change in reference ranges. It is recommended that each ESR result be reviewed with its own age appropriate reference range. Blood 03/18/2023 2:14 PM EDT 03/18/2023 2:24 PM EDT Narrative Resulting Agency Comment Spec In Lab Kia Viramontes DO HEMATOLOGY ORDERAB LES Performing Organization Address [facility]/ZIP Co de Phone Number [facility] [place] [place] [address] * CRP, acute inflammation (03/18/2023 2:14 PM EDT) C-Reactive Protein 3.0 <=4.9 mg/L [facility] Blood 03/18/2023 2:14 PM EDT 03/18/2023 2:24 PM EDT Narrative Resulting Agency Comment Spec In Lab Kia D Wander DO CHEMISTRY ORDERABL ES Performing Organization Address [facility]/ZIP Co de Phone Number [facility] [place] [place] [address] * C3 Complement (03/18/2023 2:14 PM EDT) Complement C3 142 90 - 180 mg/dL [facility] Blood 03/18/2023 2:14 PM EDT 03/18/2023 2:24 PM EDT Narrative Resulting Agency Comment Spec In Lab Kia D Wander DO CHEMISTRY ORDERABL ES Performing Organization Address [facility]/ZIP Co de Phone Number [facility] [place] [place] [address] * C4 Complement (03/18/2023 2:14 PM EDT) Complement C4 30 10 - 40 mg/dL [facility] Blood 03/18/2023 2:14 PM EDT 03/18/2023 2:24 PM EDT Narrative Resulting Agency Comment Spec In Lab Kia D Wander DO CHEMISTRY ORDERABL ES Performing Organization Address [facility]/ZIP Co de Phone Number [facility] [place] [place] [address] * CK (03/18/2023 2:14 PM EDT) Creatine Kinase 38 0 - 160 unit/L [facility] Blood 03/18/2023 2:14 PM EDT 03/18/2023 2:24 PM EDT Narrative Resulting Agency Comment Spec In Lab Kia Viramontes DO CHEMISTRY ORDERABL ES Performing Organization Address [facility]/ZIP Co de Phone Number [facility] [place] [place] [address] * DNA Antibody (Double-Stranded) (03/18/2023 2:14 PM EDT) dsDNA Ab <0.6 <=15.0 IU/mL [facility] Comment: <10 negative 10-15 equivocal >15 positive This dsDNA antibody result was generated using a fluoroenzyme immunoassay on the Healthcentrix 250 analyzer. This quantitative test is designed [...] SEND OUT ORDER JODIE Performing Organization Address [facility] Co de Phone Number [facility] [place] [place] [address] * (ABNORMAL) FRANCISCO Ab by IFA (03/18/2023 2:14 PM EDT) FRANCISCO Ab Screen Test ? Result ?Flag ??Unit ??RefValue Antinuclear Ab, HEp-2 ?Positive 1:2560 ??@ ?<1:80 (Negative) ??Substrate, S ? ADDITIONAL INFORMATION --------- ?Method: Immunofluorescence using HEp-2 cellular substrate. ??FRANCISCO Titer: ? 1:2560 ??FRANCISCO Pattern: ? Speckled ?Test Performed by: ?[facility] ?[address] [place] [address] ?Varnisher Apprentice: Raymond Chaudhry M.D. Ph.D.; CLIA# [id number] ([id number]) [facility] Blood 03/18/2023 2:14 PM EDT 03/18/2023 3:02 PM EDT Narrative Resulting Agency Comment Spec In Lab Kia Viramontes DO CHEMISTRY ORDERABL ES [facility] [place] [place] [address] * Comprehensive metabolic panel (non-fasting) (03/18/2023 2:14 PM EDT) Glucose 93 65 - 199 mg/dL [facility] Comment:Diabetes: >=200 mg/d L plus symptoms Blood Urea Nitrogen 18 8 - 18 mg/dL [facility] Creatinine 0.99 0.70 - 1.20 mg/dL [facility] Sodium 141 135 - 145 mmol/L [facility] Potassium 4.5 3.5 - 5.0 mmol/L [facility] Comment: Please note: ??Patients with WBC >100,000 may have falsely elevated Potassium levels. ??For accurate Potassium quantification in these patients send serum separator tube (gold top) for subsequent determinations. ??Contact the Clinical Chemistry Laboratory if there are any questions. Chloride 106 98 - 107 mmol/L [facility] Carbon Dioxide 24 22 - 31 mmol/L [facility] Anion Gap 11 5 - 15 mmol/L [facility] Calcium 10.0 8.5 - 10.5 mg/dL [facility] Protein, Total 7.3 6.1 - 8.0 g/dL [facility] Albumin 4.3 3.2 - 5.2 g/dL [facility] Aspartate Aminotransferase 26 0 - 30 unit/L [facility] Alanine Aminotransferase 11 0 - 30 unit/L [facility] Alkaline Phosphatase 91 35 - 105 unit/L [facility] Bilirubin, Total 0.4 0.2 - 1.3 mg/dL [facility] Est Glomerular Filtration Rate 62 >=60 mL/min/1. 73 m?? [facility] Comment: This patient's estimated GFR [...] [facility] Co de Phone Number [facility] [place] [place] [address] documented in this encounter Visit Diagnoses Diagnosis Positive FRANCISCO (antinuclear antibody) Other and unspecified nonspecific immunological findings documented in this encounter Care Teams Customer Project Manager Relationship Specialty Start Date End Date Magdalena Acosta MD [address] [place] [address] PCP - General Family Medicine 02/05/23 documented as of this encounter
--- OUTSIDE RECORDS SUMMARY | 2024-06-15 14:12 | XMS_ITS | Encounter Summary ---
Author Organization [facility] Erika [facility] [place] [address] Care Team Providers Care Graduate Assistant Athletic Trainer Name Role Phone Ashley Quirogazac Shields APRN Primary Care Provider [phone] Encounter Details Date Type Department Care Team [...] Visit Hematology and Oncology at [place] [phone] Markel Borjas MD [facility] [address] HEMATOLOGY [place] [address] 11/02/2024 12:00 PM EDT [place]ointment [place] [address] 11/02/2024 1:00 PM EDT Office [place] [address] Magdalena Peralta MD [facility] [place] [address] 03/01/2025 4:15 PM EDT Office Visit Dermatology at [place] [address] [place] [phone] Marek Bonilla MD [address], [place] [address] documented as of this encounter Visit Diagnoses Not on filedocumented in this encounter Care Teams Graduate Assistant Athletic Trainer Relationship Specialty Start Date End Date Deborah Quiroga APRN PCP - General Family Medicine 03/24/16 02/04/23 documented as of this encounter
--- OUTSIDE RECORDS SUMMARY | 2024-06-15 14:12 | XMS_ITS | Encounter Summary ---
Author Organization [facility] [place] [address] Care Team Providers Care Advertising Teacher Name Role Phone Magdalena Acosta MD Primary Care Provider [phone] Encounter Details Date Type Department Care Team (Late st Contact Info) Description 02/17/2023 2:00 PM EDT Office [place] [phone] Alirio Esparza MD Aortic valve stenosis, etiology [...] Visit Hematology and Oncology at [place] [phone] Markel Borjas MD [facility] [address] HEMATOLOGY [place] [address] 11/02/2024 12:00 PM EDT Appointment Pulmonology at [place] [address] 11/02/2024 1:00 PM EDT Office Visit Rheumatology at [place] [phone] Magdalena Peralta MD [facility] [place] [address] 03/01/2025 4:15 PM EDT Office Visit Dermatology at [address] [place] [phone] Marek Bonilla MD [address], [place] [address] documented as of this encounter Visit Diagnoses Diagnosis Aortic valve stenosis, etiology of cardiac valve disease unspecified documented in this encounter Care Teams Advertising Teacher Relationship Specialty Start Date End Date Magdalena Acosta MD [address] [place] [address] PCP - General Family Medicine 02/05/23 documented as of this encounter
--- OUTSIDE RECORDS SUMMARY | 2024-06-15 14:12 | XMS_ITS | Encounter Summary ---
[place] [address] Care Team Providers Care Sales Coordinator Name Role Phone Magdalena Acosta MD Primary Care Provider [phone] Reason for Visit * Reason Comments Skin Lesion Encounter Details Date Type Department Care Team (Late st Contact Info) Description 04/20/2023 10:00 AM EDT Office Visit Dermatology at [address] [phone] Marek Bonilla MD [address], [place] [address] Seborrheic keratosis Social History Tobacco Use Types [...] cutaneous and ocular 3. Previously told by capital markets specialist that she had corneal tears from [...] Visit Hematology and Oncology at [place] [address] Markel Borjas MD [facility] [address] HEMATOLOGY [place] [address] 11/02/2024 12:00 PM EDT Appointment Pulmonology at [place] [address] 11/02/2024 1:00 PM EDT Office Visit Rheumatology at [place] [address] Magdalena Peralta MD [facility] [place] [address] 03/01/2025 4:15 PM EDT Office Visit Dermatology at [address] [place] [address] Marek Bonilla MD [address] [facility], [place] [address] documented as of this encounter Visit Diagnoses Diagnosis Seborrheic keratosis Other seborrheic keratosis documented in this encounter Care Teams Sales Coordinator Relationship Specialty Start Date End Date Magdalena Acosta MD [address] [place] [address] PCP - General Family Medicine 02/05/23 documented as of this encounter
--- OUTSIDE RECORDS SUMMARY | 2024-06-15 14:12 | XMS_ITS | Encounter Summary ---
Author Organization [facility] Erika [facility] [address] Care Team Providers Care Hospital Clinic Assistant Name Role Phone Magdalena Acosta MD Primary Care Provider [phone] Encounter Details Date Type Department Care Team [...] Visit Hematology and Oncology at [place] [phone] Markel Borjas MD [facility] [address] [place] [address] 11/02/2024 12:00 PM EDT Appointment [place] [address] 11/02/2024 1:00 PM EDT Office Visit Rheumatology at [place] [phone] Magdalena Peralta MD [facility] [place] [address] 03/01/2025 4:15 PM EDT Office Visit Dermatology at [place] [address] [place] [phone] Marek Bonilla MD [address], [place] [place] [address] documented as of this encounter Visit Diagnoses Not on filedocumented in this encounter Care Teams Hospital Clinic Assistant Relationship Specialty Start Date End Date Magdalena Acosta MD [address] [place] [address] PCP - General Family Medicine 02/05/23 documented as of this encounter
--- OUTSIDE RECORDS SUMMARY | 2024-06-15 14:12 | XMS_ITS | Encounter Summary ---
Author Organization [facility] [place] [address] Care Team Providers Care Director Security Management Name Role Phone Junaid Deborah Shields APRN Primary Care Provider [phone] Encounter Details Date Type Department Care Team (Latest Contact Info) Description 11/09/2022 10:37 AM EDT - 11/09/2022 4:53 PM EDT Hospital En[place] [address] Nitesh Escobedo MD [facility] [place] [address] Aortic valve stenosis, etiology of cardiac valve [...] Center 02/05/2023 2:30 PM Marek Bonilla MD [facility] New Medications to be Picked Up None For questions regarding this document or issues relating to this hospitalization on the Medical Service, please contact your inpatient physician through the [facility] Windsurfing Instructor . Issues afterhours and on weekends will be handled by the Hospitalist staff on-call. * Attachments The following attachments cannot be sent through Care Everywhere. * Coronary Angiogram: Post-op (Burmese) * Right Heart Catheterization: Pulmonary Artery Catheterization: Post-op (Burmese) documented in this encounter Medications at Time [...] 11:20 AM EDT . [facility] Interventional Cardiology Adult Pre-Procedure H&P Update: Cardiac Catheterization Purnima Thacker [id number] 1955 Chief Complaint: BONILLA HPI: Purnima Thacker [...] Cardiology 11/09/22 11:43 AM [facility] Pager: [phone] documented in this encounter Plan of Treatment Upcoming Encounters Date Type Department Care Team (Late st Contact Info) Description 06/23/2024 2:00 PM EST Office Visit Hematology [place] [address] Markel Borjas MD [facility] [address] HEMATOLOGY [place] [address] 11/02/2024 12:00 PM EDT Appointment [place] [phone] 11/02/2024 1:00 PM EDT Office [place] [phone] Magdalena Peralta MD [facility] [place] [address] 03/01/2025 4:15 PM EDT Office Visit Dermatology at [place] [address] [place] [phone] Marek Bonilla MD [address], [place] [address] documented as of this encounter Procedures Procedure Name Priority Date/Time Associated Diagnosis Comments CARDIAC CATHETERIZATION Routine 11/10/19 23 1:05 PM EDT Aortic valve stenosis, etiology of cardiac valve disease unspecified Cath [facility] Left Heart Cath & Arts W/Inj & Angio Img S&I ([id number]) 11/09/2022 11:51 AM EDT Aortic valve stenosis, etiology of cardiac valve disease unspecified EKG 12-LEAD Routine 11/09/2022 11:17 AM EDT Aortic valve stenosis, etiology of cardiac valve disease unspecified documented in this encounter Results * CARDIAC CATHETERIZATION (11/09/2022 1:05 PM EDT) Anatomical Region Laterality Modality Other Narrative 11/09/2022 2:01 PM EDT ?[place] ? Cardiac Catheterization/Intervention Report ? Patient Name: Kirstie, Purnima M. ? Procedure Date: 11/09/2022 ? A #: [id number] ? Primary Physician: Nitesh Escobedo ? Case #: [id number] ? File Name: [id number] ? Catheterization Order Number: [id number] ? [facility] ? Final Report [place], [place] ? Patient Name: ? Purnima M. Kirstie ? ID#: ?[id number] ? : ?1955 ? Procedure Date: ? [...] was designated as ASA Class III. The [facility] clinical frailty scale ?is [...] (Bezet) 457 ms MUSE SYSTEM Calculated P [place] 44 degrees MUSE SYSTEM Calculated R [place] 33 degrees MUSE SYSTEM Calculated T [place] 30 degrees MUSE SYSTEM INTERPRETATION Sinus rhythm Occasional Premature ventricular complexes Otherwise normal ECG When compared with ECG of 21-SEP-2016 12:26, Premature ventricular complexes are now Present UT interval has decreased Nonspecific T wave abnormality has replaced inverted T waves in Inferior leads I personally reviewed the tracing and edited the fellows interpretation Confirmed by fellow MD Anitha, Carissa ([id number]) on 11/09/2022 6:17:28 PM Confirmed by Elsa Linares MD ([id number]) on 11/10/2022 3:47:14 PM MUSE SYSTEM 11/09/2022 [...] documented in this encounter Care Teams Director Security Management Relationship Specialty Start Date End Date Deborah Quiroga, DISTRICT PLANT ENGINEER PCP - General Family Medicine 03/24/16 02/04/23 documented as of this encounter
--- OUTSIDE RECORDS SUMMARY | 2024-06-15 14:12 | XMS_ITS | Encounter Summary ---
Author Organization [facility] [place] [address] Care Team Providers Care Legal Analyst Name Role Phone Deborah Quiroga APRN Primary Care Provider [phone] Encounter Details Date Type Department Care Team (Late st Contact Info) Description 11/09/2022 11:30 AM EDT - 11/09/2022 12:30 PM EDT Surgery [place] [address] [facility] [address] CARDIAC CATHETERIZATION Social History Tobacco Use Types [...] 02/05/2023 2:30 PM Marek Bonilla MD [facility] New Medications to be Picked Up None For questions regarding this document or issues relating to this hospitalization on the Medical Service, please contact your inpatient physician through the [facility] Custom Applic[facility] . Issues afterhours and on weekends will be handled by the Hospitalist staff on-call. * Attachments The following attachments cannot be sent through Care Everywhere. * Coronary Angiogram: Post-op ([place]orese) * Right Heart Catheterization: Pulmonary Artery Catheterization: Post-op ([place]orese) documented in this encounter Medications at Time of Discharge Medication Sig Dispensed Refills Start Date End Date nystatin (MYCOSTATIN) 100,000 unit/gram Powder Apply topically 2 times daily as needed. 10/22/2022 BitiumTouch Verio test strips Strip USE DAILY 01/03/2022 BitiumToTissue Regenix Delica Plus Lancet 33 gauge Misc USE [...] 11/09/2022 11:20 AM EDT . [facility] Interventional Cardiology Adult Pre-Procedure H&P Update: Cardiac Catheterization Purnima Thacker [id number] 1955 Chief Complaint: BONILLA HPI: Purnima Thacker [...] Interventional Cardiology 11/09/22 11:43 AM [facility] Pager: [phone] documented in this encounter Plan of Treatment Upcoming Encounters Date Type Department Care Team (Late st Contact Info) Description 06/23/2024 2:00 PM EST Office Visit Hematology [place] [address] [facility] [place] [address] 11/02/2024 12:00 PM EDT Appointment [place] [address] 11/02/2024 1:00 PM EDT Office [place] [address] [facility] [place] [address] 03/01/2025 4:15 PM EDT Office Visit Dermatology at [place] [address] [place] [phone] Marek Bonilla MD [address] [place] [address] documented as of this encounter Procedures Procedure Name Priority Date/Time Associated Diagnosis Comments CARDIAC CATHETERIZATION Routine 11/10/19 1:05 PM EDT Aortic valve stenosis, etiology of cardiac valve disease unspecified [facility] Left Heart Cath & Arts W/Inj & Angio Img S&I ([id number]) 11/09/2022 11:51 AM EDT Aortic valve stenosis, [...] ? Procedure Date: 11/09/2022 ? A #: [id number] ? Primary Physician: Nitesh Escobedo ? Case #: [id number] ? File Name: [id number] ? Catheterization Order Number: [id number] ? [facility] ? Final Report [place], [place] ? Patient Name: ? Purnima M. Kirstie ? ID#: ?[id number] ? : ?1955 ? Procedure Date: ? [...] was designated as ASA Class III. The [facility] clinical frailty scale ?is 4: [...] (Bezet) 457 ms MUSE SYSTEM Calculated P Derby 44 degrees MUSE SYSTEM Calculated R Derby 33 degrees MUSE SYSTEM Calculated T Derby 30 degrees MUSE SYSTEM INTERPRETATION Sinus rhythm Occasional Premature ventricular complexes Otherwise normal ECG When compared with ECG of 21-SEP-2016 12:26, Premature ventricular complexes are now Present WA interval has decreased Nonspecific T wave abnormality has replaced inverted T waves in Inferior leads I personally reviewed the tracing and edited the fellows interpretation Confirmed by fellow MD Anitha, Carissa ([id number]) on 11/09/2022 6:17:28 PM Confirmed by Elsa [...] MD) documented in this encounter Care Teams Legal Analyst Relationship Specialty Start Date End Date Deborah Quiroga, BOX SEALING INSPECTOR PCP - General Family Medicine 03/24/16 02/04/23 documented as of this encounter
--- OUTSIDE RECORDS SUMMARY | 2024-06-15 14:12 | XMS_ITS | Encounter Summary ---
Author Organization [facility] [place] [address] Care Team Providers Care Information Systems Security Specialist Name Role Phone Magdalena Acosta MD Primary Care Provider [phone] Encounter Details Date Type Department Care Team (Late st Contact Info) Description 03/29/2023 Notes Only Cardiology at [address] [phone] Vahid Plasencia, RN Social History Tobacco Use [...] EST Office Visit Hematology and Oncology at [place] [phone] Markel Borjas MD [facility] DR [place] [address] 11/02/2024 12:00 PM EDT Appointment [place] [address] 11/02/2024 1:00 PM EDT Office Visit Rheumatology at [place] [address] Magdalena Peralta MD [facility] [place] [address] 03/01/2025 4:15 PM EDT Office Visit Dermatology at [address] [address] Marek Bonilla MD [address] [facility], [place] [address] documented as of this encounter Visit Diagnoses Not on filedocumented in this encounter Care Teams Information Systems Security Specialist Relationship Specialty Start Date End Date Magdalena Acosta MD [address] [place] [address] PCP - General Family Medicine 02/05/23 documented as of this encounter
--- OUTSIDE RECORDS SUMMARY | 2024-06-15 14:12 | XMS_ITS | Encounter Summary ---
Author Organization [facility] Address [facility] [place] [address] Care Team Providers Care Medical Radiation Tech Name Role Phone Ahsley Quirogazac Shields APRN Primary Care Provider [phone] Reason for Referral * Consultation (Routine) - Closed Specialty Diagnoses / Procedures Referred By Contac t Referred To Contact Neurology Diagnoses Neck pain Popeye Rogers MD [facility] [place] [address] Kyra Haas MD [facility] [address] [address] Referral ID Status Reason Start Date Expiration Date V isits Requested Visits Authorized [id number] Closed Consult, Test & Treat 06/29/2022 06/29/2023 1 1 Reason for Visit * Reason Comments Neck Pain Weak in both arms, p ain and tingling in arms and hands Encounter Details Date Type Department Care Team (Late st Contact Info) Description 06/29/2022 10:20 AM EST Office Visit [place] [address] Popeye Rogers MD [facility] [place] [address] Neck pain Social History Tobacco Use Types [...] have EMG and nerve conduction studies in [place] that showed carpal tunnel syndrome. I do not have a copy of that report. documented in this encounter Plan of Treatment Upcoming Encounters Date Type Department Care Team (Late st Contact Info) Description 06/23/2024 2:00 PM EST Office Visit Hematology and Oncology at [place] [phone] Markel Borjas MD [facility] [address] [place] [address] 11/02/2024 12:00 PM EDT Appointment Pulmonology at [place] [address] 11/02/2024 1:00 PM EDT Office Visit Rheumatology at [place] [phone] Magdalena Peralta MD [facility] [place] [address] 03/01/2025 4:15 PM EDT Office Visit Dermatology at [place] [address] [facility] [place] [phone] Marek Bonilla MD [address] [facility], [place] [address] Scheduled Referrals Name Type Priority Associated Diagnoses Orde r Schedule Referral to Neurology Outpatient Referral Routine Neck pain Ordered: 06/29/2022 documented as of this encounter Visit Diagnoses Diagnosis Neck pain Cervicalgia documented in this encounter Care Teams Medical Radiation Tech Relationship Specialty Start Date End Date Deborah Quiroga, FILAMENT CUTTER PCP - General Family Medicine 03/24/16 02/04/23 documented as of this encounter
--- OUTSIDE RECORDS SUMMARY | 2024-06-15 14:12 | XMS_ITS | Encounter Summary ---
Author Organization [facility] Address [facility] [address] Care Team Providers Care Milk Route Supervisor Name Role Phone Deborah Quiroga APRN Primary Care Provider [phone] Encounter Details Date Type Department Care Team (Latest Contact Info) Description 07/03/2022 1:36 PM EST - 07/03/2022 11:59 PM EST Hospital Encounter [place] [address] Discharge Disposition: Home Social History Tobacco Use [...] EST Office Visit [place] [address] Markel Borjas MD [facility] [address] [place] [address] 11/02/2024 12:00 PM EDT [place] [address] 11/02/2024 1:00 PM EDT [place] [address] Magdalena Peralta MD [facility] [place] [address] 03/01/2025 4:15 PM EDT Office Visit Dermatology at [place] [address] [facility] [place] [phone] Marek Bonilla MD [address], [place] [address] documented as of this encounter Procedures Procedure [...] [facility]/ZIP Co de Phone Number [facility] [place] [address] * Vitamin B12 (07/03/2022 1:59 PM EST) Vitamin B12 449 232 - 1,245 pg/mL [facility] Blood Venous Draw / Unknown 07/03/2022 1:59 PM EST 07/03/2022 2:13 PM EST Narrative Resulting Agency Comment Spec In Lab Markel Borjas MD CHEMISTRY ORDERABL ES [facility] [place] [address] documented in this encounter Visit Diagnoses Not on filedocumented in this encounter Care Teams Milk Route Supervisor Relationship Specialty Start Date End Date Deborah Quiroga APRN PCP - General Family Medicine 03/24/16 02/04/23 documented as of this encounter
--- OUTSIDE RECORDS SUMMARY | 2024-06-15 14:12 | XMS_ITS | Encounter Summary ---
Author Organization [facility] [place] [address] Care Team Providers Care Quantitative Analyst Name Role Phone Deborah Quiroga APRN Primary Care Provider Encounter Details Date Type Department Care Team (Late st Contact Info) Description 06/08/2022 Ancillary Procedure Radiology Library at [facility] [place] [address] Deborah Quiroga APRN [address] [place] [phone] Social History Tobacco Use Types Packs/Day [...] Visit Hematology [place] [phone] Markel Borjas MD [facility] [place] [address] 11/02/2024 12:00 PM EDT Appoint[place] [address] 11/02/2024 1:00 PM EDT Office [place] [address] Magdalena Peralta MD [facility] [place] [address] 03/01/2025 4:15 PM EDT Office Visit Dermatology at [place] [address] [facility] [address] [facility] [place] [phone] Marek Bonilla MD [address], [place] [address] documented as of this encounter Procedures Procedure Name Priority Date/Time Associated Diagnosis Comments FILM LIBRARY STORAGE ONLY DX SPINE Routine 06/08/2022 12:00 AM EST documented in this encounter Results * Film Library- Storage Only DX Spine (06/08/2022 12:00 AM EST) Narrative [facility] - 06/18/2022 10:57 AM EST This exam is auto-finalizing. It's purpose is for storage only. Deborah Quiroga APRN IMGerman FILM LIBRARY OR DERABLES Performing Organization Address City/State/[facility] Co de Phone Number [place], [place] documented in this encounter Visit Diagnoses Not on filedocumented in this encounter Care Teams Quantitative Analyst Relationship Specialty Start Date End Date Deborah Quiroga APRN PCP - General Family Medicine 03/24/16 02/04/23 documented as of this encounter
--- OUTSIDE RECORDS SUMMARY | 2024-06-15 14:12 | XMS_ITS | Encounter Summary ---
Author Organization [facility] Erika [facility] [place] [address] Care Team Providers Care Carton Inspector Name Role Phone Magdalena Acosta MD Primary Care Provider [phone] Encounter Details Date Type Department Care Team [...] Visit Hematology and Oncology at [place] [phone] Markel Borjas MD [facility] DR [place] [address] 11/02/2024 12:00 PM EDT [place]oint[place] [address] 11/02/2024 1:00 PM EDT Office [place] [address] Magdalena Peralta MD [facility] [place] [address] 03/01/2025 4:15 PM EDT Office Visit Dermatology at [place] [address] [place] [address] Marek Bonilla MD [address], [place] [address] documented as of this encounter Visit Diagnoses Not on filedocumented in this encounter Care Teams Carton Inspector Relationship Specialty Start Date End Date Magdalena Acosta MD [address] [place] [address] PCP - General Family Medicine 02/05/23 documented as of this encounter
--- OUTSIDE RECORDS SUMMARY | 2024-06-15 14:12 | XMS_ITS | Encounter Summary ---
Author Organization [facility] [place] [address] Care Team Providers Care Route Salesman And Driver Name Role Phone Magdalena Acosta MD Primary Care Provider [phone] Reason for Referral * Consultation (Routine) - Closed Specialty Diagnoses / Procedures Referred By Contac t Referred To Contact Rheumatology Diagnoses Weakness Kyra Haas MD [facility] [address] [place] [address] [facility] Rheumatology [address] [place] [phone] Referral ID Status Reason Start Date Expiration Date V isits Requested Visits Authorized [id number] Closed Consult, Test & Treat PCP Updated and/or Approved 02/25/2023 02/25/2024 6 6 Encounter Details Date Type Department Care Team (Late st Contact Info) Description 02/25/2023 Transcribe Orders eDH Incoming Referrals [phone] Magdalena Acosta MD [address] [place] [address] Weakness Social History Tobacco Use [...] Visit Hematology and Oncology at [place] [phone] Markel Borjas MD [facility] [address] [place] [address] 11/02/2024 12:00 PM EDT [place]oint[place] [address] 11/02/2024 1:00 PM EDT Office [place] [address] Magdalena Peralta MD [facility] [place] [address] 03/01/2025 4:15 PM EDT Office Visit Dermatology at [place] [address] [facility] [place] [phone] Marek Bonilla MD [address] [facility], [place] [address] Scheduled Referrals Name Type Priority Associated Diagnoses Order Schedule Referral to Rheumatology Outpatient Referral Routine Weakness Ordered: 02/25/2023 documented as of this encounter Visit Diagnoses Diagnosis Weakness Other malaise and fatigue documented in this encounter Care Teams Route Salesman And Driver Relationship Specialty Start Date End Date Magdalena Acosta MD [address] [place] [address] PCP - General Family Medicine 02/05/23 documented as of this encounter
--- OUTSIDE RECORDS SUMMARY | 2024-06-15 14:12 | XMS_ITS | Encounter Summary ---
[place] [address] Care Team Providers Care Safe Deposit Box Rental Clerk Name Role Phone Deborah Quiroga APRN Primary Care Provider [phone] Reason for Referral * Consultation (Routine) - Closed Specialty Diagnoses / Procedures Referred By Contac t Referred To Contact Rheumatology Diagnoses Positive FRANCISCO (antinuclear antibody) Arthralgia, unspecified joint Sandy Wu APRN [address] [place] [address] [facility] Rheumatology [address] [place] [phone] Referral ID Status Reason Start Date Expiration Date V isits Requested Visits Authorized [id number] Closed Consult, Test & Treat PCP Updated and/or Approved 01/01/2022 01/01/2023 6 6 Encounter Details Date Type Department Care Team (Latest Contact Info) Description 01/01/2022 Transcribe Orders eDH Incoming Referrals [phone] Sandy Wu APRN [address] [place], [place] [id number] Positive FRANCISCO (antinuclear antibody); Arthralgia, unspecified joint [...] Visit Hematology and Oncology at [place] [phone] [facility] DR HEMATOLOGY [place] [address] 11/02/2024 12:00 PM EDT Appointment Pulmonology at [address] 11/02/2024 1:00 PM EDT Office Visit Rheumatology at [place] [address] [address] [facility] DR [place] [address] 03/01/2025 4:15 PM EDT Office Visit Dermatology at [address] [phone] Marek Bonilla MD [address] [place] [address], [place] [address] Scheduled Referrals Name Type Priority Associated Diagnoses Orde r Schedule Referral to Rheumatology Outpatient Referral Routine Positive FRANCISCO (antinuclear antibody) Arthralgia, unspecified joint Ordered: 01/01/2022 documented as of this encounter Visit Diagnoses Diagnosis Positive FRANCISCO (antinuclear antibody) Other and unspecified nonspecific immunological findings Arthralgia, unspecified joint documented in this encounter Care Teams Safe Deposit Box Rental Clerk Relationship Specialty Start Date End Date Deborah Quiroga APRN PCP - General Family Medicine 03/24/16 02/04/23 documented as of this encounter
--- OUTSIDE RECORDS SUMMARY | 2024-06-15 14:12 | XMS_ITS | Encounter Summary ---
Author Organization [facility] Address [facility] [place] [address] Care Team Providers Care Water Resources Project Manager Name Role Phone Ashley Quirogazac Shields APRN Primary Care Provider [phone] Encounter Details Date Type Department Care Team (Latest Contact Info) Description 06/22/2022 10:00 AM EST Office [place] [address] Raymond Loredo MD [facility] [place] [address] Raynaud's phenomenon without gangrene; Positive FRANCISCO (antinuclear [...] can be done locally or here at [facility] that the current time is not particularly [...] for surgery by Dr. Rogers here at [facility]. In addition to painful dysesthesias in her [...] over radiocarpal or ulnocarpal joints. 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 SJC/TJC 0/0. Knees: Decreased flexion [...] Visit Hematology and Oncology at [place] [phone] Markel Borjas MD [facility] DR [place] [address] 11/02/2024 12:00 PM EDT Appointment Pulmonology at [place] [address] 11/02/2024 1:00 PM EDT Office Visit Rheumatology at [place] [phone] Magdalena Peralta MD [facility] [place] [address] 03/01/2025 4:15 PM EDT Office Visit Dermatology at [address] [place] [address] Marek Bonilla MD [address] [place] [address] RD, QU[address] A DERMATOLOGY [place], [place] [phone] documented as of this encounter Visit Diagnoses Diagnosis Raynaud's phenomenon without gangrene Positive FRANCISCO (antinuclear antibody) Other and unspecified nonspecific immunological findings Primary osteoarthritis involving multiple joints Cervical disc disorder at C6-C7 level with radiculopathy documented in this encounter Care Teams Water Resources Project Manager Relationship Specialty Start Date End Date Dbeorah Quiroga APRN PCP - General Family Medicine 03/24/16 02/04/23 documented as of this encounter
--- OUTSIDE RECORDS SUMMARY | 2024-06-15 14:12 | XMS_ITS | Encounter Summary ---
Author Organization [facility] [place] [address] Care Team Providers Care Towboat Engineer Name Role Phone Ashley Quirogazac Shields APRN Primary Care Provider [phone] Encounter Details Date Type Department Care Team [...] Visit Hematology and Oncology at [place] [phone] Markel Borjas MD [facility] [address] [place] [address] 11/02/2024 12:00 PM EDT [place] [address] 11/02/2024 1:00 PM EDT Office [place] [address] Magdalena Peralta MD [facility] [address] [place] [address] 03/01/2025 4:15 PM EDT Office Visit Dermatology at [place] [address] [place] [address] Marek Bonilla MD [address] [place] [address] documented as of this encounter Visit Diagnoses Not on filedocumented in this encounter Care Teams Towboat Engineer Relationship Specialty Start Date End Date Deborah Quiroga APRN PCP - General Family Medicine 03/24/16 02/04/23 documented as of this encounter
--- OUTSIDE RECORDS SUMMARY | 2024-06-15 14:12 | XMS_ITS | Encounter Summary ---
Author Organization [facility] [place] [address] Care Team Providers Care Garment Sorter Name Role Phone Winter Quiroga APRN Primary Care Provider [phone] Encounter Details Date Type Department Care Team (Late st Contact Info) Description 06/05/2021 Interpretation Only [address] [address] Winter Quiroga APRN [address] [phone] Social History Tobacco Use Types Packs/Day Years [...] EST Office Visit [place]ematology [place] [address] Markel Borjas MD [facility] DR [place] [address] 11/02/2024 12:00 PM EDT [place]oint[place] [address] 11/02/2024 1:00 PM EDT Office [place] [address] Magdalena Peralta MD [facility] [place] [address] 03/01/2025 4:15 PM EDT Office Visit Dermatology at [place] [address] [place] [address] Marek Bonilla MD [address], [place] [address] documented as of this encounter Procedures Procedure Name Priority Date/Time Associated Diagnosis Comments DXA CENTRAL SPINE, HIP, AND/OR WHOLE BODY (GENERIC) Routine 06/05/2021 11:58 AM EDT documented in this encounter Results * DXA Central Spine, Hip, and/or Whole Body (Generic) (06/05/2021 11:58 AM EDT) PT CLASS O RAD ADMITDTTM RAD PT RAD INFO [id number]^E VERETT^WINTER ^E RAD EXAM DESC XDXAC^DEXA SCAN [...] have questions please contact the health care analyst that requested your imaging first. [...] who have questions please contactthe health care analyst that requested your imaging first. Winter Quiroga APRN IMGerman DEXA ORDERABLES documented in this encounter Visit Diagnoses Not on filedocumented in this encounter Care Teams Garment Sorter Relationship Specialty Start Date End Date Winter Quiroga APRN PCP - General Family Medicine 03/24/16 02/04/23 documented as of this encounter
--- OUTSIDE RECORDS SUMMARY | 2024-06-15 14:12 | XMS_ITS | Encounter Summary ---
Author Organization [facility] Address [facility] [place] [address] Care Team Providers Care Trailer Chief Name Role Phone Deborah Quiroga ANURAG Primary Care Provider [phone] Encounter Details Date Type Department Care Team (Late st Contact Info) Description 01/09/2022 Refill Dermatology at [address] [phone] Lupe Connor RN Social History Tobacco Use [...] Visit Hematology and Oncology at [place] [phone] Markel Borjas MD [facility] [address] [place] [address] 11/02/2024 12:00 PM EDT Appointment [place] [address] 11/02/2024 1:00 PM EDT Office Visit Rheumatology at [place] [phone] Magdalena Peralta MD [facility] [place] [address] 03/01/2025 4:15 PM EDT Office Visit Dermatology at [place] [address] [place] [phone] Marek Bonilla MD [address], [place] [address] documented as of this encounter Visit Diagnoses Not on filedocumented in this encounter Care Teams Trailer Chief Relationship Specialty Start Date End Date Deborah Quiroga APRN PCP - General Family Medicine 03/24/16 02/04/23 documented as of this encounter
--- OUTSIDE RECORDS SUMMARY | 2024-06-15 14:12 | XMS_ITS | Encounter Summary ---
[place] [address] Care Team Providers Care Disk Recoater Name Role Phone Magdalena Acosta MD Primary Care Provider [phone] Reason for Visit * Reason Comments Annual Exam Encounter Details Date Type Department Care Team (Late st Contact Info) Description 02/05/2023 2:30 PM EDT Office Visit Dermatology at [address] [phone] Marek Bonilla MD [address] [facility], TODD A DERMATOLOGY [place], [place] [phone] Rosacea; Ocular rosacea; Nevus Social History Tobacco [...] cutaneous and ocular 2. Previously told by coiler that she had corneal tears from her [...] and if doing well discontinue altogether CC: Debroah Quiroga APRN documented in this encounter Plan of Treatment Upcoming Encounters Date Type Department Care Team (Late st Contact Info) Description 06/23/2024 2:00 PM EST Office Visit Hematology [place] [phone] Markel Borjas MD [facility] [address] [place] [address] 11/02/2024 12:00 PM EDT Appointment [place] [phone] 11/02/2024 1:00 PM EDT Office [place] [address] Magdalena Peralta MD [facility] [place] [address] 03/01/2025 4:15 PM EDT Office Visit Dermatology at [address] [phone] Marek Bonilla MD [address] [facility] [address], TODD A DERMATOLOGY [place], [place] [address] documented as of this encounter Visit Diagnoses Diagnosis Rosacea Ocular rosacea Rosacea Nevus Benign neoplasm of skin, site unspecified documented in this encounter Care Teams Disk Recoater Relationship Specialty Start Date End Date Magdalena Acosta MD [address] [place] [address] PCP - General Family Medicine 02/05/23 documented as of this encounter
--- OUTSIDE RECORDS SUMMARY | 2024-06-15 14:12 | XMS_ITS | Encounter Summary ---
Author Organization [facility] Address [facility] [place] [address] Care Team Providers Care Parking Lot Chauffeur Name Role Phone Deborah Quiroga APRN Primary Care Provider [phone] Reason for Visit * Reason Comments Follow-up Encounter Details Date Type Department Care Team (Late st Contact Info) Description 07/03/2022 1:30 PM EST Office Visit Hematology [place] [address] [facility] [address] [place] [address] [facility] [address] [place] [address] Chronic idiopathic neutropenia; Dysuria Social History Tobacco [...] 07/03/2022 1:30 PM EST Hematology Outpatient Clinic [facility] [...] TOUCH PREP, CLOT SECTION, CORE ??BIOPSY); [OSR# [id number], COLLECTED 06/23/2016, 19 SLIDES]: ?1. 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 Extremities: No edema. Labs: Hgb= 11.7 Ogbn=664 ANC= 2.5 Imaging As above - reviewed [...] Visit Hematology [place] [address] [facility] [address] [place] [address] 11/02/2024 12:00 PM EDT Appointment [place] [address] 11/02/2024 1:00 PM EDT Office [place] [phone] [facility] [place] [address] 03/01/2025 4:15 PM EDT Office Visit Dermatology at [address] [place] [phone] Marek Bonilla MD [address] [facility], [place] [address] documented as of this encounter Procedures Procedure [...] Borjas MD MICROBIOLOGY - GEN ERAL ORDERABLES [facility] [place] [place] [address] * (ABNORMAL) Urinalysis Microscopic Exam (07/03/2022 2:00 [...] Borjas MD URINE ORDERABLES Performing Organization Address City/[facility]/ZIP Co de Phone Number [facility] [place] [place] [address] * (ABNORMAL) Urinalysis with reflex Culture (07/03/2022 [...] CENTER LABORATORY Leukocytes, Urine Dipstick Small(A) Negative [facility]ATORY Appearance, Urine Dipstick Clear Clear [facility] Specific Groom Urine Automated 1.022 1.005 - 1.030 [facility] Color, Urine Dipstick Yellow Yellow [facility] Reflex to Culture Yes [facility] Clean Catch Urine 07/03/2022 2:00 PM EST 07/03/2022 2:29 PM EST Narrative Resulting Agency Comment Spec In Lab Markel Borjas MD URINE ORDERABLES Performing Organization Address City/[facility]/ZIP Co de Phone Number [facility] [place] [address] * (ABNORMAL) Comprehensive metabolic panel (non-fasting) (07/03/2022 [...] CHEMISTRY ORDERABL ES Performing Organization Address City/State/[facility] Co de Phone Number [facility] [place] [phone] documented in this encounter Visit Diagnoses Diagnosis Chronic idiopathic neutropenia Other neutropenia Dysuria documented in this encounter Care Teams Parking Lot Chauffeur Relationship Specialty Start Date End Date Deborah Quiroga APRN PCP - General Family Medicine 03/24/16 02/04/23 documented as of this encounter
--- OUTSIDE RECORDS SUMMARY | 2024-06-15 14:12 | XMS_ITS | Encounter Summary ---
Author Organization [facility] [place] [address] Care Team Providers Care Admissions Counselor Name Role Phone Winter Quiroga APRN Primary Care Provider [phone] Encounter Details Date Type Department Care Team (Late st Contact Info) Description 06/05/2021 Interpretation Only [address] [address] Winter Quiroga APRN [address] [phone] Social History Tobacco Use Types Packs/Day Years [...] EST Office Visit Hematology [place] [phone] Markel Borjas MD [facility] [address] [place] [address] 11/02/2024 12:00 PM EDT Appointment [place] [address] 11/02/2024 1:00 PM EDT Office [place] [address] Magdalena Peralta MD [facility] [place] [address] 03/01/2025 4:15 PM EDT Office Visit Dermatology at [place] [address] [place] [address] Marek Bonilla MD [address] [facility] [facility] [address], [place] [address] documented as of this encounter Procedures Procedure Name Priority Date/Time Associated Diagnosis Comments MAMMO SCREENING CAD BILATERAL Routine 06/05/2021 11:42 AM EDT documented in this encounter Results * Mammo Screening Cad Bilateral (06/05/2021 11:42 AM EDT) PT CLASS O RAD ADMITDTTM RAD PT RAD INFO [id number]^EV ERETT^WINTER^E RAD EXAM DESC MADDSC^SCREEN MAMMO BL [...] Electronically signed by: Rocael Villatoro MD, [facility] ([phone]), at 06/05/2021 1:27 PM Narrative 06/05/2021 1:27 [...] Electronically signed by: Rocael Villatoro MD, [facility]([phone]), at 06/05/2021 1:27 PM Winter Quiroga APRN IMG MAMMO ORDERABLE S documented in this encounter Visit Diagnoses Not on filedocumented in this encounter Care Teams Admissions Counselor Relationship Specialty Start Date End Date Winter Quiroga APRN PCP - General Family Medicine 03/24/16 02/04/23 documented as of this encounter
--- OUTSIDE RECORDS SUMMARY | 2024-06-15 14:12 | XMS_ITS | Encounter Summary ---
Author Organization [facility] [place]rika [facility] [place] [address] Care Team Providers Care Burr Bench Operator Name Role Phone Ashley Quirogazac Shields APRN Primary Care Provider [phone] Encounter Details Date Type Department Care Team [...] Visit Hematology and Oncology at [place] [phone] Markel Borjas MD [facility] DR HEMATOLOGY [place] [address] 11/02/2024 12:00 PM EDT [place]oint[place] [address] 11/02/2024 1:00 PM EDT Office [place] [address] Magdalena Peralta MD [facility] [place] [address] 03/01/2025 4:15 PM EDT Office Visit Dermatology at [place] [address] [place] [address] Marek Bonilla MD [address] [facility] [address] [address], [place] [address] documented as of this encounter Visit Diagnoses Not on filedocumented in this encounter Care Teams Burr Bench Operator Relationship Specialty Start Date End Date Deborah Quiroga APRN PCP - General Family Medicine 03/24/16 02/04/23 documented as of this encounter
--- OUTSIDE RECORDS SUMMARY | 2024-06-15 14:12 | XMS_ITS | Encounter Summary ---
Author Organization [facility] [place] [address] Care Team Providers Care Fine Patcher Name Role Phone Deborah Quiroga APRN Primary Care Provider [phone] Reason for Referral * Consultation (Routine) - Closed Specialty Diagnoses / Procedures Referred By Crispin maxwell Referred To Contact Neurology Diagnoses Polyneuropathy Deborah Quiroga APRN [address] [facility] [address] [place] [address] [facility] [place] Neurology [address] [place] [phone] Referral ID Status Reason Start Date Expiration Date V isits Requested Visits Authorized [id number] Closed Consult, Test & Treat 10/29/2022 10/29/2023 1 1 Encounter Details Date Type Department Care Team (Latest Contact Info) Description 10/29/2022 Transcribe Orders eDH Incoming Referrals [phone] Deborah Quiroga APRN [address] [facility] [address] [place] [address] Polyneuropathy (Primary Dx) Social History [...] EST Office Visit [place] [address] Markel Borjas MD [facility] [address] HEMATOLOGY [place] [address] 11/02/2024 12:00 PM EDT [place] [phone] 11/02/2024 1:00 PM EDT [place] [phone] Magdalena Peralta MD [facility] [place] [address] 03/01/2025 4:15 PM EDT Office Visit Dermatology at [place] [address] [facility] [place] [phone] Marek Bonilla MD [address] [facility], [place] [address] Scheduled Referrals Name Type Priority Associated Diagnoses Orde r Schedule Referral to Neurology Outpatient Referral Routine Polyneuropathy Ordered: 10/29/2022 documented as of this encounter Visit Diagnoses Diagnosis Polyneuropathy- Primary Unspecified hereditary and idiopathic peripheral neuropathy documented in this encounter Care Teams Fine Patcher Relationship Specialty Start Date End Date Deborah Quiroga APRN PCP - General Family Medicine 03/24/16 02/04/23 documented as of this encounter
--- OUTSIDE RECORDS SUMMARY | 2024-06-15 14:12 | XMS_ITS | Encounter Summary ---
[place] [address] Care Team Providers Care Mental Tester Name Role Phone Magdalena Acosta MD Primary Care Provider [phone] Reason for Visit * Reason Comments Suture / Staple Removal Encounter Details Date Type Department Care Team (Late st Contact Info) Description 02/16/2023 10:00 AM EDT Office Visit Dermatology at [place] [address] [facility] [place] [address] Marek Bonilla MD [address] [facility], QUOC A DERMATOLOGY [place], [place] [phone] Visit for suture removal Social History Tobacco [...] EST Office Visit Hematology [place] [address] Markel Borjas MD [facility] [address] HEMATOLOGY [place] [address] 11/02/2024 12:00 PM EDT [place]oint[place] [address] 11/02/2024 1:00 PM EDT Office [place] [address] Magdalena Peralta MD [facility] [place] [address] 03/01/2025 4:15 PM EDT Office Visit Dermatology at [address] [place] [address] Marek Bonilla MD [address], [place] [address] documented as of this encounter Visit Diagnoses Diagnosis Visit for suture removal Encounter for removal of sutures documented in this encounter Care Teams Mental Tester Relationship Specialty Start Date End Date Magadlena Acosta MD [address] [place] [address] PCP - General Family Medicine 02/05/23 documented as of this encounter
--- OUTSIDE RECORDS SUMMARY | 2024-06-15 14:12 | XMS_ITS | Encounter Summary ---
Author Organization [facility] Erika [facility] [place] [address] Care Team Providers Care Frame Bender Name Role Phone Magdalena Acosta MD Primary Care Provider [phone] Encounter Details Date Type Department Care Team [...] EST Office Visit Hematology and Oncology at [place] [phone] Markel Borjas MD [facility] DR HEMATOLOGY [place] [address] 11/02/2024 12:00 PM EDT Appointment [place] [address] 11/02/2024 1:00 PM EDT Office [place] [address] Madgalena Peralta MD [facility] [place] [address] 03/01/2025 4:15 PM EDT Office Visit Dermatology at [place] [address] [place] [address] Marek Bonilla MD [address], [place] [address] documented as of this encounter Visit Diagnoses Not on filedocumented in this encounter Care Teams Frame Bender Relationship Specialty Start Date End Date Magdalena Acosta MD [address] [place] [address] PCP - General Family Medicine 02/05/23 documented as of this encounter
--- OUTSIDE RECORDS SUMMARY | 2024-06-15 14:12 | XMS_ITS | Encounter Summary ---
[place] [address] Care Team Providers Care Paint Laboratory Technician Name Role Phone Ashley Quirogazac Shields APRN Primary Care Provider [phone] Reason for Visit * Reason Comments Annual Exam Encounter Details Date Type Department Care Team (Late st Contact Info) Description 01/09/2022 3:15 PM EDT Office Visit Dermatology at [address] [phone] Marek Bonilla MD [address] [facility], QUOC A DERMATOLOGY [place], [place] [phone] Rosacea Social History Tobacco Use Types Packs/Day [...] cutaneous and ocular 2. Previously told by cellar packer that she had corneal tears from [...] refills. We will call this into [facility] in [place] 3. Continue metronidazole 0.75% gel applying every [...] EST Office Visit Hematology [place] [address] Markel Borjas MD [facility] [address] HEMATOLOGY [place] [address] 11/02/2024 12:00 PM EDT Appointment [place] [address] 11/02/2024 1:00 PM EDT Office [place] [address] Magdalena Peralta MD [facility] [place] [address] 03/01/2025 4:15 PM EDT Office Visit Dermatology at [place] [address] [facility] [place] [address] Marek Bonilla MD [address], [place] [address] documented as of this encounter Visit Diagnoses Diagnosis Rosacea documented in this encounter Care Teams Paint Laboratory Technician Relationship Specialty Start Date End Date Deborah Quiroga APRN PCP - General Family Medicine 03/24/16 02/04/23 documented as of this encounter
--- OUTSIDE RECORDS SUMMARY | 2024-06-15 14:12 | XMS_ITS | Encounter Summary ---
Author Organization [facility] Address [facility] [place] [address] Care Team Providers Care Commercial Driver Name Role Phone Ashley Quirogazac Shields APRN Primary Care Provider [phone] Encounter Details Date Type Department Care Team (Late st Contact Info) Description 01/13/2021 Refill Dermatology at [address] [address] [place], HEEL COMPRESSOR Social History Tobacco Use Types Packs/Day Years [...] EST Office Visit Hematology [place] [address] Markel Borjas MD [facility] [address] [place] [address] 11/02/2024 12:00 PM EDT Appointment [place] [address] 11/02/2024 1:00 PM EDT Office Visit [place] [address] Magdalena Peralta MD [facility] [place] [address] 03/01/2025 4:15 PM EDT Office Visit Dermatology at [place] [address] [place] [address] Marek Bonilla MD [address], [place] [address] documented as of this encounter Visit Diagnoses Not on filedocumented in this encounter Care Teams Commercial Driver Relationship Specialty Start Date End Date Deborah Quiroga APRN PCP - General Family Medicine 03/24/16 02/04/23 documented as of this encounter
--- OUTSIDE RECORDS SUMMARY | 2024-06-15 14:12 | XMS_ITS | Encounter Summary ---
Author Organization [facility] [place] [address] Care Team Providers Care Weekday Babysitter Name Role Phone Magdalena Acosta MD Primary Care Provider [phone] Encounter Details Date Type Department Care Team (Latest Contact Info) Description 02/05/2023 9:33 PM EDT - 02/05/2023 11:59 PM EDT Hospital [place] [address] Discharge Disposition: Home Social History Tobacco Use [...] EST Office Visit [place] [address] Markel Borjas MD [facility] [place] [address] 11/02/2024 12:00 PM EDT [place]oint[place] [address] 11/02/2024 1:00 PM EDT Office [place] [address] Magdalena Peralta MD [facility] [place] [address] 03/01/2025 4:15 PM EDT Office Visit Dermatology at [address] [place] [address] Marek Bonilla MD [address] [facility] [address], [place] [address] documented as of this encounter Procedures Procedure Name Priority Date/Time Associated Diagnosis Comments SURGICAL PATHOLOGY REPORT Routine 02/05/2023 3:00 PM EDT documented in this encounter Results * Surgical Pathology Report (02/05/2023 3:00 PM EDT) Final Diagnosis [id number] ? Location: [facility]W The signing pathologist has (i) examined the relevant preparation(s) for the specimen(s) and (ii) rendered or confirmed the diagnosis(es). . ?Surgical Pathology DIAGNOSIS Left upper back, skin punch biopsy: - ??Compound dysplastic ??melanocytic nevus with moderate atypia, transected at peripheral specimen edges ?? (see discussion) Electronically signed by: ?Vanna CULP, Jesse Shields Verified: ??02/16/2023 8:04 ?? Dermatopathologist Performed at: ??-[facility] Dept. of Pathology, [place] [address] Supervisor Production: Kunal Rubi MD, FCAP, ??CLIA Certificate: [id number] DISCUSSION If there is an obvious clinical [...] AM EDT [facility] SPECIMEN FROM SKIN / Unknown 02/05/2023 3:00 PM EDT 02/05/2023 3:00 PM EDT Marek Bonilla MD PATHOLOGY/CYTOLOGY O RDERABLES [facility] [place] [address] [facility] [place] [address] documented in this encounter Visit Diagnoses Not on filedocumented in this encounter Care Teams Weekday Babysitter Relationship Specialty Start Date End Date Magdalena Acosta MD [address] [place] [address] PCP - General Family Medicine 02/05/23 documented as of this encounter
--- OUTSIDE RECORDS SUMMARY | 2024-06-15 14:12 | XMS_ITS | Encounter Summary ---
Author Organization [facility] Erika [facility] [place] [address] Care Team Providers Care Asphalt Roller Operator Name Role Phone Magdalena Acosta MD Primary Care Provider [phone] Encounter Details Date Type Department Care Team [...] EST Office Visit Hematology and Oncology at [place] [phone] Markel Borjas MD [facility] DR HEMATOLOGY [place] [address] 11/02/2024 12:00 PM EDT Appointment [place] [address] 11/02/2024 1:00 PM EDT Office [place] [address] Magdalena Peralta MD [facility] DR [place] [address] 03/01/2025 4:15 PM EDT Office Visit Dermatology at [place] [address] [place] [address] Marek Bonilla MD [address] [address], [place] [address] documented as of this encounter Visit Diagnoses Not on filedocumented in this encounter Care Teams Asphalt Roller Operator Relationship Specialty Start Date End Date Magdalena Acosta MD [address] [place] [address] PCP - General Family Medicine 02/05/23 documented as of this encounter
--- OUTSIDE RECORDS SUMMARY | 2024-06-15 14:12 | XMS_ITS | Encounter Summary ---
Author Organization [facility] Address [facility] [place] [address] Care Team Providers Care Tree Trimming Line Technician Name Role Phone Ashley Quirogan [place] ANURAG Primary Care Provider [phone] Encounter Details Date Type Department Care Team (Late st Contact Info) Description 01/14/2023 Refill Dermatology at [address] [address] Lupe Connor RN Social History [...] She would like the medication called into [facility] in [facility]. Discussed with Dr. [...] EST Office Visit Hematology and Oncology at [place] [phone] Markel Borjas MD [facility] [address] [place] [address] 11/02/2024 12:00 PM EDT [place] [address] 11/02/2024 1:00 PM EDT Office [place] [address] Magdalena Peralta MD [facility] [place] [address] 03/01/2025 4:15 PM EDT Office Visit Dermatology at [place] [address] [facility] [place] [address] Marek Bonilla MD [address] [facility] [address], QUOC A DERMATOLOGY [place], [place] [address] documented as of this encounter Visit Diagnoses Not on filedocumented in this encounter Care Teams Tree Trimming Line Technician Relationship Specialty Start Date End Date Deborah Quiroga APRN PCP - General Family Medicine 03/24/16 02/04/23 documented as of this encounter
--- OUTSIDE RECORDS SUMMARY | 2024-06-15 14:12 | XMS_ITS | Encounter Summary ---
Author Organization [facility] [place] [address] Care Team Providers Care Supervisor Engine Repair Name Role Phone Deborah Quiroga APRN Primary Care Provider Encounter Details Date Type Department Care Team (Late st Contact Info) Description 06/17/2022 Ancillary Procedure Radiology Library at [facility] [place] [address] Deborah Quiroga APRN [address] [place] [phone] Social History Tobacco Use Types Packs/Day [...] Hematology [place] [phone] Markel Borjas MD [facility] HEMATOLOGY [place] [address] 11/02/2024 12:00 PM EDT Appointment [place] [phone] 11/02/2024 1:00 PM EDT Office [place] [address] Magdalena Peralta MD [facility] DR [place] [address] 03/01/2025 4:15 PM EDT Office Visit Dermatology at [place] [address] [phone] Marek Bonilla MD [address], [place] [address] documented as of this encounter Procedures Procedure Name Priority Date/Time Associated Diagnosis Comments FILM LIBRARY STORAGE ONLY MR SPINE Routine 06/17/2022 12:00 AM EST documented in this encounter Results * Film Library- Storage Only MR Spine (06/17/2022 12:00 AM EST) Narrative [facility] - 06/18/2022 11:00 AM EST This exam is auto-finalizing. It's purpose is for storage only. Deborah Quiroga APRN IMGerman FILM LIBRARY OR DERABLES Performing Organization Address City/State/[facility] Co de Phone Number [place], [place] documented in this encounter Visit Diagnoses Not on filedocumented in this encounter Care Teams Supervisor Engine Repair Relationship Specialty Start Date End Date Deborah Quiroga APRN PCP - General Family Medicine 03/24/16 02/04/23 documented as of this encounter
--- OUTSIDE RECORDS SUMMARY | 2024-06-15 14:12 | XMS_ITS | Encounter Summary ---
Author Organization [facility] [place] [address] Care Team Providers Care Canvas Cutter Name Role Phone Deborah Quiroga APRN Primary Care Provider [phone] Encounter Details Date Type Department Care Team (Latest Contact Info) Description 07/03/2022 12:28 PM EST - 07/03/2022 1:35 PM EST Hospital Encounter Hematology [place] [address] Chronic idiopathic neutropenia Discharge Disposition: Home Social [...] Visit Hemat[place] [phone] Markel Borjas MD [facility] DR [place] [address] 11/02/2024 12:00 PM EDT [place]oint[place] [phone] 11/02/2024 1:00 PM EDT Office [place] [phone] Magdalena Peralta MD [facility] [address] 03/01/2025 4:15 PM EDT Office Visit Dermatology at [place] [address] [facility] [place] [phone] Marek Bonilla MD [address] [place] [address] RD, [place] [address] documented as of this encounter Procedures Procedure [...] 12:40 PM EST) Neutrophil % 72.9 % [facility] Neutrophil Absolute 2.61 1.70 - 6.10 x10(3)/mc L [facility] Lymph % 18.4 % [facility] Lymphocytes Abs 0.7(L) 0.9 - 3.2 x10(3)/mc L [facility] Monocyte % 8.4 % [facility] Monocyte Abs 0.3 0.3 - 0.9 x10(3)/mc L [facility] Eos % 0.0 % [facility] Eosinophils Abs 0.0 0.0 - 0.4 x10(3)/mc L [facility] Basophil % 0.3 % [facility] Baso Absolute 0.0 0.0 - 0.1 x10(3)/mc L [facility] Immature Gran [...] Absolute 0.00 0.00 - 0.04 x10(3)/mc L [facility] Blood 07/03/2022 12:4 0 PM EST 07/03/2022 1:03 PM EST Narrative Resulting Agency Comment Spec In Lab Markel Borjas MD HEMATOLOGY ORDERAB LES [facility] [place] [place] [address] * (ABNORMAL) Hemogram (07/03/2022 12:40 PM EST) White Blood Cell 3.6(L) 4.0 - 9.5 x10(3)/[facility] Red Blood Cell 3.61(L) 4.00 - 5.21 x10(6)/[facility] Hemoglobin 11.7 11.7 - 15.5 [...] HOSPITAL LABORATORY Platelet 171 145 - 357 x10(3)/[facility] RDW Standard Deviation 40.5 37.0 - 46.0 [facility] RDW coefficient of variation 11.5 11.5 - 14.1 % [facility] Mean Platelet Volume 9.2 7.6 - 12.9 fL [facility] NRBC% auto 0.0 % [facility] NRBC Absolute 0.000 0.000 - 0.000 x10(3)/ L [facility] Blood 07/03/2022 12:4 0 PM EST 07/03/2022 1:03 PM EST Narrative Resulting Agency Comment Spec In Lab Markel Borjas MD HEMATOLOGY ORDERAB LES [facility] [place] [place] [address] * (ABNORMAL) Comprehensive metabolic panel (non-fasting) (07/03/2022 [...] CHEMISTRY ORDERABL ES [facility] [place] [phone] documented in this encounter Visit Diagnoses Diagnosis Chronic idiopathic neutropenia Other neutropenia documented in this encounter Care Teams Canvas Cutter Relationship Specialty Start Date End Date Deborah Quiroga APRN PCP - General Family Medicine 03/24/16 02/04/23 documented as of this encounter
--- OUTSIDE RECORDS SUMMARY | 2024-06-15 14:12 | XMS_ITS | Encounter Summary ---
Author Organization [facility] [place] [address] Care Team Providers Care Addiction Nurse Name Role Phone Magdalena Acosta MD Primary Care Provider [phone] Encounter Details Date Type Department Care Team [...] Visit Hematology and Oncology at [place] [phone] Markel Borjas MD [facility] [address] HEMATOLOGY [place] [address] 11/02/2024 12:00 PM EDT Appointment [place] [address] 11/02/2024 1:00 PM EDT Office Visit Rheumatology at [place] [phone] Magdalena Peralta MD [facility] [place] [address] 03/01/2025 4:15 PM EDT Office Visit Dermatology at [place] [address] [place] [phone] Marek Bonilla MD [address], [place] [address] documented as of this encounter Visit Diagnoses Not on filedocumented in this encounter Care Teams Addiction Nurse Relationship Specialty Start Date End Date Magdalena Acosta MD [address] [place] [address] PCP - General Family Medicine 02/05/23 documented as of this encounter
--- OUTSIDE RECORDS SUMMARY | 2024-06-15 14:13 | XMS_ITS | Encounter Summary ---
Author Organization [facility] [place] [address] Care Team Providers Care Garment Looper Name Role Phone Ashley Quirogan [place] ANURAG Primary Care Provider [phone] Reason for Visit * Reason Comments Skin Check Encounter Details Date Type Department Care Team (Late st Contact Info) Description 11/11/2020 10:45 AM EDT Office Visit Dermatology at [address] [place] [address] Marek Bonilla MD [address] [facility], [address] DERMATOLOGY [place], [place] [phone] Rosacea; Acrochordon Social History Tobacco Use Types [...] Discussed the possibility of getting this through [facility] or from the [facility] if necessary. She has not yet [...] EST Office Visit [place] [address] Markel Borjas MD [facility] [address] [place] [address] 11/02/2024 12:00 PM EDT [place] [phone] 11/02/2024 1:00 PM EDT [place] [address] Magdalena Peralta MD [facility] [address] 03/01/2025 4:15 PM EDT Office Visit Dermatology at [place] [address] [place] [address] Marek Bonilla MD [address], [place] [address] documented as of this encounter Visit Diagnoses Diagnosis Rosacea Acrochordon Unspecified hypertrophic and atrophic condition of skin documented in this encounter Care Teams Garment Looper Relationship Specialty Start Date End Date Deborah Quiroga, LICENSE AND PERMIT SPECIALIST PCP - General Family Medicine 03/24/16 02/04/23 documented as of this encounter
--- OUTSIDE RECORDS SUMMARY | 2024-06-15 14:13 | XMS_ITS | Encounter Summary ---
Author Organization [facility] Address [facility] [place] [address] Care Team Providers Care Stores Clerk Name Role Phone Deborah Quiroga APRN Primary Care Provider [phone] Encounter Details Date Type Department Care Team (Late st Contact Info) Description 03/01/2020 11:30 AM EDT Office Visit Hematology [place] [phone] Patrick Borjas MD [facility] [address] HEMATOLOGY [place] [address] Neutropenia, unspecified type Social History Tobacco Use [...] 03/01/2020 11:30 AM EDT Hematology Outpatient Clinic [facility] Hematology Outpatient Consult Note CC: [...] TOUCH PREP, CLOT SECTION, CORE ??BIOPSY); [OSR# [id number], COLLECTED 06/23/2016, 19 SLIDES]: ?1. 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 Extremities: No edema. Labs: Hgb= 12.4 Kqhn=316 ANC= 2.5 Imaging As above - reviewed [...] EST Office Visit Hematology [place] [address] Patrick Borjas MD [facility] [address] HEMATOLOGY [place] [address] 11/02/2024 12:00 PM EDT Appointment [place] [address] 11/02/2024 1:00 PM EDT Office [place] [address] Magdalena Peralta MD [facility] [place] [address] 03/01/2025 4:15 PM EDT Office Visit Dermatology at [place] [address] [place] [phone] Marek Bonilla MD [address], [place] [address] documented as of this encounter Visit Diagnoses Diagnosis Neutropenia, unspecified type documented in this encounter Care Teams Stores Clerk Relationship Specialty Start Date End Date Deborah Quiroga APRN PCP - General Family Medicine 03/24/16 02/04/23 documented as of this encounter
--- OUTSIDE RECORDS SUMMARY | 2024-06-15 14:13 | XMS_ITS | Encounter Summary ---
Author Organization [facility] Address [facility] [place] [address] Care Team Providers Care Career Resource Technician Name Role Phone Deborah Quiroga APRN Primary Care Provider [phone] Encounter Details Date Type Department Care Team (Latest Contact Info) Description 10/14/2016 - 10/14/2016 11:59 PM EDT Hospital Encounter Radiology Library at [facility] [place] [phone] Alirio Esparza MD Pain Discharge Disposition: Home [...] [place]ematology [place] [address] Markel Borjas MD [facility] [address] HEMATOLOGY [place] [address] 11/02/2024 12:00 PM EDT Appointment [place] [phone] 11/02/2024 1:00 PM EDT Office [place] [address] Magdalena Peralta MD [facility] [place] [address] 03/01/2025 4:15 PM EDT Office Visit Dermatology at [place] [address] [facility] [place] [address] Marek Bonilla MD [address], [place] [address] documented as of this encounter Procedures Procedure [...] FILM LIBRARY OR DERABLES Performing Organization Address City/State/[facility] Co de Phone Number [place], [place] documented in this encounter Visit Diagnoses Diagnosis Pain Generalized pain documented in this encounter Care Teams Career Resource Technician Relationship Specialty Start Date End Date Deborah Quiroga, AUTOMOTIVE SPECIALTY TECHNICIAN PCP - General Family Medicine 03/24/16 02/04/23 documented as of this encounter
--- OUTSIDE RECORDS SUMMARY | 2024-06-15 14:13 | XMS_ITS | Encounter Summary ---
Author Organization Formerly [facility] [place] [address] Care Team Providers Care Urology Teacher Name Role Phone Ashley Quirogazac Shields APRN Primary Care Provider [phone] Reason for Referral * Consultation (Routine) - Specialty Diagnoses / Procedures Referred By Contact Referred To Contact Cardiac Rehabilitation Diagnoses S/P AVR Alirio Esparza MD [facility] DR CARDI[place] [address] Cardiac Rehab, [address] [place] [address] Referral ID Status Reason Start Date Expiration Date V isits Requested Visits Authorized [id number] Consult, Test & Treat 09/25/2016 03/24/2017 36 36 Reason for Visit * Auth/Cert Specialty Diagnoses / Procedures Referred By Contkrystle t Referred To Contact Diagnoses Aortic stenosis Procedures PRO REPLACE AORT VALV, PROSTH VALV @REPLACE AORTIC VALVE, OPEN, W\CPB, W\PROSTHETIC VALVE (WRVU 41.32) Referral ID Status Reason Start Date Expiration Date Visits Re quested Visits Authorized [id number] 1 1 Encounter Details Date Type Department Care Team (Latest Contact Info) Description 09/21/2016 6:08 AM EST - 09/25/2016 4:33 PM EST Hospital Encounter Intermediate [place] [id number] Alirio Esparza MD Aortic valve stenosis, unspecified [...] Patient Age: 61 y.o. Birthdate: 1955 Language: Palestinian Race: White Ethnicity: Not nor Admit Date: 09/21/2016 Discharge Date: 09/25/2016 Attending Physician: Alirio Esparza MD Follow-up Recommendations for Providers: Please continue routine management of cardiovascular risk factors including blood pressure, lipids,glucose, etc. Please note any changes to medications. Patient to follow-up with PCP, Deborah Quiroga APRN, in 1-2 weeks. Patient to follow-up with Wharf Helper, Dr. Antelmo Burrell, in two weeks. Patient to follow-up with Cardiac Surgery, Dr. Alirio Esparza, to be scheduled for before 10/19/2016, with CXR, EKG, and Echo. Inpatient Provider Contact Information: [facility] Section of Cardiac Surgery [facility] [address] FAX [phone] Discharge Diagnoses (Hospital Problems) Primary Diagnoses: Secondary [...] 41.32) performed by Alirio Esparza MD at [facility] MAIN OR ??? Pro aortoplas for supravalv sten N/A 09/21/2016 @AORTOPLASTY FOR SUPRAVALVULAR STENOSIS (WRVU 29.33) performed by Alirio Esparza MD at [facility] MAIN OR Prior To Admission [...] Alirio Esparza and/or the Cardiac Surgery Physician Technical Illustrator Team may be reached at . Antibiotic prophylaxis: You will need to take antibiotics prior to many invasive tests and treatments, such as dental cleaning, which should be done every 6 months. Your primary care physician or your dentist can prescribe this medication. Please refer to the card with the [place] Heart [employer] Guidelines for more information. You have been provided with 3 copies of this card. Keep one for your self. Give one to your primary care physician and one to your dentist. Please refer to the [place] Heart [employer] Guidelines for more information. Good [...] Dr. Alirio Jones. You may use a [place] Track or treadmill but avoid any pulling [...] should resume a low fat, low cholesterol, [place] Heart Association Diet. Driving: No driving until [...] outpatient Phase 2 Cardiac Rehabilitation at [facility]. The patient agrees to a referral to this program. The referral will be sent at discharge and the patient should be contacted by the program within 1- 2 weeks from discharge. Future Appointments and Orders Future Appointments Provider Department Dept Phone 11/20/2016 11:30 AM Markel Borjas MD [facility] [phone] Future Orders Complete By Expires Echocardiogram Transthoracic([place]) [[id number] Custom] 10/18/2016 (Approximate) 09/18/2017 Process Instructions: If the Echocardiogram is to be PERFORMED in a location other than [place]--STOP and order [id number], Echocardiogram South/External. Scheduling Instructions: Questions: Is a Bubble Study requested?: No Does the patient have Congenital Heart Disease?: No Does patient require sedation?: None GA rationale: Should this service be billed to the research sponsor?: EKG 12 Lead [EKG1 Custom] 10/18/2016 (Approximate) 09/25/2017 Process Instructions: Scheduling Instructions: Questions: Which location will this be performed?: [place] Is a rhythm strip needed?: No If EKG Reason is Pre-op Evaluation, indicate diagnosis for surgery.: Should this service be billed to the research sponsor?: XR Chest PA & Lateral (Generic) [[id number] Custom] 10/18/2016 (Approximate) 09/25/2017 Process Instructions: Scheduling Instructions: Questions: Where will study be performed?: [facility]- Radiology Portable exam?: No Reason for exam and clinical history: s/p AVReplacement, patch annuloplasty 1 month f/u Other pertinent information: Stat read required?: Date of injury if applicable: Requested Time: Referral to Cardiac Rehab [SEK849 Custom] As directed Process Instructions: If no progress note charted, please enter Clinical details in comments. Scheduling Instructions: Questions: My question or request is: s/p AVR. Cardiac rehab at [facility] Referral to Home Health - at DISCHARGE [EZY1265 CPT(R)] As directed Process Instructions: Scheduling Instructions: Comments: DOCUMENTATION FOR VNA SERVICES (INCLUDING THOSE PATIENTS WITH MEDICARE COVERAGE REQUIRING HOME VNA SERVICES AND/OR HOSPICE SERVICES) PATIENT'S LOCATION: Purnima Magalie Kirstie [address] [place] [phone] (home) No relevant phone numbers on file. Automotive Porter's Name: self In discussion with the attending physician, it is certified that this patient is under their care and that they, or a Nurse Practitioner, or Physician Technical Illustrator who is working directly with them, hada [...] services as follows: HOME HEALTH AGENCY: [facility] PHONE: [phone] FAX: [phone] RN orders: Cardiopulmonary assessment, incisional assessment, assess [...] issues please call the Cardiac SurgeryOffice at [phone] FOR MEDICARE ONLY: In discussion with the [...] AFTER 09/30/16 Signed: Crispin Aranda PA-C 09/25/[address] [facility] Section of Cardiac Surgery [facility] [address] FAX [phone] Date: 09/25/2016 CC: ANURAG Alford Caryn E, APRN [address] [place] [address] documented in this encounter Discharge Instructions * [...] Alirio Esparza and/or the Cardiac Surgery Physician Technical Illustrator Team may be reached at . Antibiotic prophylaxis: You will need to take antibiotics prior to many invasive tests and treatments, such as dental cleaning, which should be done every 6 months. Your primary care physician or your dentist can prescribe this medication. Please refer to the card with the [place] Heart [employer] Guidelines for more information. You have been provided with 3 copies of this card. Keep one for your self. Give one to your primary care physician and one to your dentist. Please refer to the [place] Heart [employer] Guidelines for more information. Good [...] Dr. Alirio Jones. You may use a [place] Track or treadmill but avoid any pulling [...] should resume a low fat, low cholesterol, [place] Heart Association Diet. Driving: No driving until [...] outpatient Phase 2 Cardiac Rehabilitation at [facility]. The patient agrees to a [...] PM EST Cardiac Surgery Progress Note: ID: [id number] S/p AVR, patch aortoplasty POD#2. PMH of [...] Gas) No results found for: PHART, PO2ART, [id number] Assessment/Plan: TPW out this am. (+) BM. [...] Signed: Crispin Aranda PA-C 09/24/2016 Team pager: [phone]; [phone] after 5pm [facility] Section of Cardiac Surgery * Leonor Henson, IT MANAGER - 09/23/2016 10:48 AM EST Cardiac Surgery Progress Note: ID: [id number] s/p AVR, patch aortoplasty POD#2. PMH of [...] Gas) No results found for: PHART, PO2ART, [id number] Assessment/Plan: s/p AVR, patch aortoplasty POD#2. PMH of Neutropenia, HLD, HTN, Depression, obesity, . Transferred from [facility] yesterday and doing well. Pathway. Will [...] AM EST Cardiac Surgery Progress Note: ID: [id number] s/p AVR, patch aortoplasty POD#1. PMH of [...] NT, ND, soft. Ext: Moves all extremities. Gordo, well perfused. Incisions: C/D/I Tubes/Lines/Drains: PIV, leanna, [...] AVR for severe aortic stenosis. ?? Mrs. Tahcker is someone who I have met in [...] with outpatient services Lalitha Cohen SPTA Pager: [phone] Inpatient Physical Therapy Patient status, treatment interventions, and goals discussed with student. I am in agreement with all details and associated flowsheet rows as documented and was present for all aspects of the patient treatment session. Nerykatrina Jaramillo, [facility] Pager [phone] Problem: Acute Rehab Services Goal & Intervention Plan Goal: Bed Mobility Goal Stand Alone Therapy Goal Outcome: Ongoing (Interventions Implemented as Appropriate) 09/22/16 16109/25/16 09 Bed Mobility Goal Bed Mobility Goal, Time to Achieve 4 days -- Bed Mobility Goal, Activity Type scoot/bridge;supine to sit/sit to supine -- Bed Mobility Goal, [place] Level independent -- Bed Mobility Goal, Additional [...] Achieve 4 days -- Gait Training Goal, [place] Level independent -- Gait Training Goal, Distance [...] assist, home with home health Lalitha Cohen [facility] Pager: [phone] Inpatient Physical Therapy Patient status, treatment interventions, and goals discussed with student. I am in agreement with all details and associated flowsheet rows as documented and was present for all aspects of the patient treatment session. Nery Jaramillo, [facility] Pager [phone] Problem: Acute Rehab Services Goal & Intervention Plan Goal: Bed Mobility Goal Stand Alone Therapy Goal Outcome: Ongoing (Interventions Implemented as Appropriate) 09/22/16 16109/23/16 1412 Bed Mobility Goal Bed Mobility Goal, Time to Achieve 4 days -- Bed Mobility Goal, Activity Type scoot/bridge;supine to sit/sit to supine -- Bed Mobility Goal, [place] Level independent -- Bed Mobility Goal, Additional [...] Achieve 4 days -- Gait Training Goal, [place] Level independent -- Gait Training Goal, Distance [...] days -- Transfer Training Goal, Activity Type olw-zr-yxbor/wymky-td-tfi;eny-yo-iporg/aeobb-pv-fut -- Transfer Train Goal, [place] Level independent -- Transfer Training Goal, Additional Goal abides sternal precautions -- Transfer Training Goal, Outcome -- goal met * Consult Note - Jana Crenshaw RN - 09/23/2016 9:41 AM EST [facility] Purnima Thacker was seen today regarding participation in the outpatient Phase 2 Cardiac Rehabilitation at [facility]. The patient agrees to a [...] Another Service: (cardiac rehab) NICOLE HERNANDEZ, PT Pager:[phone] Inpatient Physical Therapy Problem: Acute Rehab Services Goal & Intervention Plan Goal: Bed Mobility Goal Stand Alone Therapy Goal Outcome: Ongoing (Interventions Implemented as Appropriate) 09/22/16 1611 Bed Mobility Goal Bed Mobility Goal, Time to Achieve 4 days Bed Mobility Goal, Activity Type scoot/bridge;supine to sit/sit to supine Bed Mobility Goal, [place] Level independent Bed Mobility Goal, Additional Goal able to abide sternal precautions during transfers Goal: Gait Training Goal Stand Alone Therapy Goal Outcome: Ongoing (Interventions Implemented as Appropriate) 09/22/16 1611 Gait Training Goal Gait Training Goal, Date Established 09/22/16 Gait Training Goal, Time to Achieve 4 days Gait Training Goal, [place] Level independent Gait Training Goal, Distance to Achieve ascend and descends 2 steps independently Goal: Goal Transfer Training Stand Alone Therapy Goal Outcome: Ongoing (Interventions Implemented as Appropriate) 09/22/16 1611 Goal Transfer Training Transfer Training Goal, Time to Achieve 4 days Transfer Training Goal, Activity Type rdk-ki-jzxwr/varyv-zy-sda;tyi-mr-doqia/zybql-va-dxs Transfer Train Goal, [place] Level independent Transfer Training Goal, Additional Goal [...] of completing AD's at home, chooses her rgifly-gw-efy, Martha Thacker (home) for her [facility], 2nd choice in friend, Nitesh Leroy [place], [place] Current Coping/Education/Information Needs: patient sitting up [...] who live close by, [place], and her nptqkz-qs-wtm Martha Thacker who she has chosen to be her DPOAH. Also has a friend Nitesh Leroy who lives in [place], [place], also her DPOAH choice. Behavioral Health History: none on file in [facility] Substance Use/Abuse: none on file in [facility] Other Pertinent/Service Specific Information: none Health/Prescription Coverage: Primary Insurance: [employer] Secondary Insurance: none Prescription Coverage: yes, per patient no issues Preferred Pharmacy: ?? Other: none Primary Care Provider: Deborah Quiroga, IT MANAGER [phone] Patient/Caregiver Goals of Treatment: per medical team recommendations at discharge for CT surgery Potential Needs for Transition of Care: Rehab/SNF: TBD Home Health: TBD DME: no Dialysis: no Community Resources: non3 Transportation: ride home with a friend Other: none Anticipated Barriers to Discharge/Special Considerations: none anticipated at this time Plan: patient will need VNA services at discharge. The patient/lead generation representative has been provided a list of Home Health Agencies/DME vendors which servetheir preferred geographic area. A letter describing our affiliations was reviewed with them and they were educated about their right to choose where referrals are placed. Patient requests referral to: [facility]. PHONE: [phone] FAX: [phone] Expected date of discharge: Fri/Sat? CM called VNA to confirm referral, talked with VALDO Bunn/intake who stated she was familiar w/patient & would monitor her progress through curaspan. Referral routed to the Anaesthetic Technician for matching with agency/vendor and to provide any required information. A member of the Care Management team will continue to monitor progress, follow for continuity of care and assist with transition of care planning. Amanda Moreno RN Pager: [phone] * Op Note - Alirio Esparza MD - 09/21/2016 12:53 PM EST 09/23/2016 Purnima Thacker 1955 [id number] Preoperative Diagnosis: Symptomatic aortic stenosis Postoperative Diagnosis: Symptomatic aortic stenosis Procedure: Aortic valve replacement: Bovine Pericardial 25 mm Surgeon: Alirio Esparza M.D. Technical Illustrator: Philip BALL Anesthesia: General endotracheal anesthesia Drains: [...] Operative Note Patient Name: Purnima Thacker : [id number] MR#: [id number] Case Date: 09/21/2016 Surgeon: Surgeon(s) and Role: * Alirio Esparza MD - Primary * Nico Palacios PA - Physician Technical Illustrator Preoperative diagnosis: Postoperative diagnosis: Procedure(s) (LRB): @REPLACE [...] Visit Hematology and Oncology at [place] [address] Markel Borjas MD [facility] [address] HEMATOLOGY [place] [address] 11/02/2024 12:00 PM EDT Appointment Pulmonology at [place] [address] 11/02/2024 1:00 PM EDT Office Visit Rheumatology at [place] [address] Magdalena Peralta MD [facility] [place] [address] 03/01/2025 4:15 PM EDT Office Visit Dermatology at [place] [address] [facility] [place] [address] Marek Bonilla MD [address] [facility] [place] [address] Scheduled Orders Name Type Priority Associated Diagnoses [...] IMPLANTABLE DEVICES SCAN 09/26/2016 12:00 AM EST RX SPECIALIST SCAN 09/26/2016 12:00 AM EST POTASSIUM [...] SCAN EXT O RDR/RSLT * SCAN DOC: RX SPECIALIST (09/26/2016 12:00 AM EST) Anatomical Region [...] MD CHEMISTRY ORDERABLE S [facility] [place] [address] * (ABNORMAL) Differential, Automated (09/24/2016 9:56 AM EST) Neutrophil % 76.8 % [facility] Neutrophil Absolute 7.79(H) 1.70 - 6.10 x10(3)/mc L [facility] Lymph % 11.1 % [facility] Lymphocytes Abs 1.1 0.9 - 3.2 x10(3)/[facility] LABORATORY Monocyte % 8.5 % [facility] Monocyte Abs 0.9 0.3 - 0.9 x10(3)/[facility] LABOR[facility] Eos % 0.5 % [facility] Eosinophils Abs 0.0 0.0 - 0.4 x10(3)/[facility] LABOR[facility] Basophil % 0.2 % [facility] Baso Absolute 0.0 0.0 - 0.1 x10(3)/[facility] LABOR[facility]ORY Immature Gran % 2.90 % [facility] Comment: Immature granulocytes(IG's)percentage and absolute count will include metamyelocytes, myelocytes, and promyelocytes. Blood smears from CBCs yielding IG's will be scanned manually for concordance. If this scan disagrees with the automated IG or if promyelocytes are noted, a manual differential will be performed. Immature Gran Absolute 0.29(H) 0.00 - 0.04 x10(3)/[facility] LABOR[facility]ORY Blood specimen (specimen) 09/24/2016 9:56 AM EST 09/24/2016 10:04 AM EST Narrative Resulting Agency Comment Spec In Lab Alirio Esparza MD HEMATOLOGY ORDERABL ES Performing Organization Address City/State/[facility] Co de Phone Number [facility] [place] [address] * (ABNORMAL) Hemogram (09/24/2016 9:56 AM EST) White Blood Cell 10.1(H) 4.0 - 9.5 x10(3)/[facility] LAB[facility] Red Blood Cell 2.87(L) 4.00 - 5.21 x10(6)/[facility] LAB[facility] Hemoglobin 9.4(L) 11.7 - 15.5 gm/dL [...] Standard Deviation 45.0 37.0 - 46.0 fL [facility] RDW coefficient of variation 12.6 11.5 - 14.1 % [facility] Mean Platelet Volume 9.4 7.6 - 12.9 fL [facility] NRBC% auto 1.1 % [facility] NRBC Absolute 0.110(H) 0.000 - 0.000 x10(3)/mc L [facility] Blood specimen (specimen) 09/24/2016 9:56 AM EST 09/24/2016 10:04 AM EST Narrative Resulting Agency Comment Spec In Lab Alirio Esparza MD HEMATOLOGY ORDERABL ES [facility] [place] [address] * (ABNORMAL) Basic Metabolic Panel (non-fasting) (09/24/2016 [...] the following links into your internet browser. [email or web address] Blood specimen (specimen) 09/24/2016 9:56 AM EST 09/24/2016 10:04 AM EST Narrative Resulting Agency Comment Spec In Lab Alirio Esparza MD CHEMISTRY ORDERABLE S [facility] [place] [address] * XR Chest PA & Lateral (Generic) [...] MD CHEMISTRY ORDERABLE S [facility] [place] [address] * POCT Glucose (09/22/2016 8:17 AM EST) Glucose, POC 131 65 - 199 mg/dL [facility] Comment: Supplemental ranges: <140 mg/dL before meals <180 mg/dL all other times of the day Blood specimen (specimen) 09/22/2016 8:17 AM EST 09/22/2016 8:17 AM EST Alirio Esparza MD POINT OF CARE TEST ORDERABLES Performing Organization Address [facility] de Phone Number [facility] [place] [address] * POCT Glucose (09/22/2016 4:01 AM EST) Glucose, POC 135 65 - 199 mg/dL [facility] Comment: Supplemental ranges: <140 mg/dL before meals <180 mg/dL all other times of the day Blood specimen (specimen) 09/22/2016 4:01 AM EST 09/22/2016 4:01 AM EST Ailrio Esparza MD POINT OF CARE TEST ORDERABLES Performing Organization Address [facility] de Phone Number [facility] [place] [address] * Scan, Peripheral Blood (09/22/2016 4:00 AM EST) Pathologist [facility] Plat estimate Normal [facility] RBC Morphology Abnormal [facility] Macrocyte 1-5 /HPF [facility] Plat, Giant Less than 1 /HPF [facility] Blood specimen (specimen) 09/22/2016 4:00 AM EST 09/22/2016 4:34 AM EST Narrative Resulting Agency Comment Spec In Lab Alirio Esparza MD HEMATOLOGY ORDERABL ES Performing Organization Address [facility] Co de Phone Number [facility] [place] [address] * Electrolytes panel (09/22/2016 4:00 AM EST) Pathologist [facility] Sodium 145 135 - 145 mmol/L [facility] [...] MD CHEMISTRY ORDERABLE S [facility] [place] [address] * (ABNORMAL) Differential, Automated (09/22/2016 4:00 AM EST) Neutrophil % 70.9 % [facility] Neutrophil Absolute 5.33 1.70 - 6.10 x10(3)/mc L [facility] Lymph % 9.1 % [facility] Lymphocytes Abs 0.7(L) 0.9 - 3.2 x10(3)/mc L [facility] Monocyte % 18.0 % [facility] Monocyte Abs 1.4(H) 0.3 - 0.9 x10(3)/mc L [facility] Eos % 0.0 % [facility] Eosinophils Abs 0.0 0.0 - 0.4 x10(3)/mc L [facility] Basophil % 0.1 % [facility] [...] Absolute 0.14(H) 0.00 - 0.04 x10(3)/ L [facility] Blood specimen (specimen) 09/22/2016 4:00 AM EST 09/22/2016 4:34 AM EST Narrative Resulting Agency Comment Spec In Lab Alirio Esparza MD HEMATOLOGY ORDERABL ES [facility] [place] [address] * (ABNORMAL) Hemogram (09/22/2016 4:00 AM EST) White Blood Cell 7.5 4.0 - 9.5 x10(3)/[facility] LAB[facility] Red Blood Cell 2.93(L) 4.00 - 5.21 x10(6)/[facility] LAB[facility] Hemoglobin 9.2(L) 11.7 - 15.5 gm/dL [facility] Hematocrit 28.0(L) 35.7 - 45.8 % [facility] Mean Cell Volume 95.6(H) 82.6 - 94.4 fL [facility] Mean Cell Hemoglobin 31.4 27.1 - 32.0 pg [facility] Mean Cell Hemoglobin Concentration 32.9 31.7 - 35.0 gm/dL [facility] Platelet 161 145 - 357 x10(3)/[facility] LABORAT[facility] RDW Standard Deviation 44.0 37.0 - 46.0 [facility] LAB[facility]AT[facility] RDW coefficient of variation 12.6 11.5 - 14.1 % [facility] Mean Platelet Volume 9.3 7.6 - 12.9 [facility] LABORATORY NRBC% auto 0.3 % [facility] NRBC Absolute 0.020(H) 0.000 - 0.000 x10(3)/ L [facility] Blood specimen (specimen) 09/22/2016 4:00 AM EST 09/22/2016 4:34 AM EST Narrative Resulting Agency Comment Spec In Lab Alirio Esparza MD HEMATOLOGY ORDERABL ES Performing Organization Address [facility] de Phone Number [facility] [place] [address] * (ABNORMAL) Cardiac Enzymes (09/22/2016 4:00 AM EST) Troponin-T 0.13(H) <=0.03 ng/mL [facility] Comment: 0.03 ng/mL: Represents the 99th percentile upper reference limit for normals. >0.03 ng/mL: Elevated cardiac troponin T level indicative of myocardial damage. Diagnosis of acute, evolving or recent UT requires a typical rise and gradual fall [...] consensus document of the Joint Society of Cardiology/[place] College of Cardiology Committee for the redefinition of myocardial infarction. ??Journal of the [place] College of Cardiology 2000; 36: 959-969] Creatine Kinase 338(H) 0 - 160 unit/L [facility] Blood specimen (specimen) 09/22/2016 4:00 AM EST 09/22/2016 4:34 AM EST Narrative Resulting Agency Comment Spec In Lab Alirio Esparza MD CHEMISTRY ORDERABLE S Performing Organization Address [facility] Co de Phone Number [facility] [place] [address] * (ABNORMAL) Glucose, fasting (09/22/2016 4:00 AM [...] of Diabetes Mellitus, Position Statement from the [place] Diabetes Association. ??Diabetes Care, Volume 33, Supplement 1, Aug 2009 Blood specimen (specimen) 09/22/2016 4:00 AM EST 09/22/2016 4:34 AM EST Narrative Resulting Agency Comment Spec In Lab Alirio Esparza MD CHEMISTRY ORDERABLE S [facility] [place] [address] * (ABNORMAL) Creatinine (09/22/2016 4:00 AM EST) [...] the following links into your internet browser. [email or web address] Blood specimen (specimen) 09/22/2016 4:00 AM EST 09/22/2016 4:34 AM EST Narrative Resulting Agency Comment Spec In Lab Ailrio Esparza MD CHEMISTRY ORDERABLE S Performing Organization Address [facility] Co de Phone Number [facility] [place] [address] * BUN (09/22/2016 4:00 AM EST) Blood Urea Nitrogen 10 8 - 18 mg/dL [facility] Blood specimen (specimen) 09/22/2016 4:00 AM EST 09/22/2016 4:34 AM EST Narrative Resulting Agency Comment Spec In Lab Alirio Esparza MD CHEMISTRY ORDERABLE S Performing Organization Address [facility] Phone Number [facility] [place] [address] * POCT Glucose (09/21/2016 9:59 PM EST) Glucose, POC 146 65 - 199 mg/dL [facility] Comment: Supplemental ranges: <140 mg/dL before meals <180 mg/dL all other times of the day Blood specimen (specimen) 09/21/2016 9:59 PM EST 09/21/2016 9:59 PM EST Alirio Esparza MD POINT OF CARE TEST ORDERABLES Performing Organization Address [facility] Co de Phone Number [facility] [place] [address] * POCT Glucose (09/21/2016 7:26 PM EST) Glucose, POC 152 65 - 199 mg/dL [facility] Comment: Supplemental ranges: <140 mg/dL before meals <180 mg/dL all other times of the day Blood specimen (specimen) 09/21/2016 7:26 PM EST 09/21/2016 7:26 PM EST Alirio Esparza MD POINT OF CARE TEST ORDERABLES Performing Organization Address [facility] Co de Phone Number [facility] [place] [address] * POCT Glucose (09/21/2016 6:00 PM EST) Glucose, POC 146 65 - 199 mg/dL [facility] Comment: Supplemental ranges: <140 mg/dL before meals <180 mg/dL all other times of the day Blood specimen (specimen) 09/21/2016 6:00 PM EST 09/21/2016 6:00 PM EST Alirio Esparza MD POINT OF CARE TEST ORDERABLES [facility] [place] [address] * (ABNORMAL) BLOOD GAS 2 ARTERIAL (09/21/2016 4:42 PM EST) [facility] pH, Arterial 7.35(L) 7.35 - 7.45 [facility] [...] [facility] FIO2 Art 40 % [facility] PF Ratio Art 270 [facility] Blood specimen (specimen) 09/21/2016 4:42 PM EST 09/21/2016 4:42 PM EST Alirio Esparza MD POINT OF CARE TEST ORDERABLES Performing Organization Address City/[facility]/ZIP Co de Phone Number [facility] [place] [address] * POCT Glucose (09/21/2016 4:07 PM EST) Glucose, POC 150 65 - 199 mg/dL [facility] Comment: Supplemental ranges: <140 mg/dL before meals <180 mg/dL all other times of the day Blood specimen (specimen) 09/21/2016 4:07 PM EST 09/21/2016 4:07 PM EST Alirio Esparza MD POINT OF CARE TEST ORDERABLES Performing Organization Address City/[facility]/ZIP Co de Phone Number [facility] [place] [address] * (ABNORMAL) Hemoglobin (09/21/2016 4:05 PM EST) Hemoglobin 9.9(L) 11.7 - 15.5 gm/dL [facility] Blood specimen (specimen) 09/21/2016 4:05 PM EST 09/21/2016 4:20 PM EST Narrative Resulting Agency Comment Spec In Lab Alirio Esparza MD HEMATOLOGY ORDERABL ES Performing Organization Address [facility] de Phone Number [facility] [place] [address] * Potassium (09/21/2016 4:05 PM EST) Potassium 4.6 3.5 - 5.0 mmol/L [facility] [...] S Performing Organization Address [facility] de Phone Number [facility] [place] [address] * POCT Glucose (09/21/2016 2:52 PM EST) Glucose, POC 117 65 - 199 mg/dL [facility] Comment: Supplemental ranges: <140 mg/dL before meals <180 mg/dL all other times of the day Blood specimen (specimen) 09/21/2016 2:52 PM EST 09/21/2016 2:52 PM EST Alirio Esparza MD POINT OF CARE TEST ORDERABLES Performing Organization Address [facility] Co de Phone Number [facility] [place] [address] * POCT Glucose (09/21/2016 1:51 PM EST) Glucose, POC 108 65 - 199 mg/dL [facility] Comment: Supplemental ranges: <140 mg/dL before meals <180 mg/dL all other times of the day Blood specimen (specimen) 09/21/2016 1:51 PM EST 09/21/2016 1:51 PM EST Alirio Esparza MD POINT OF CARE TEST ORDERABLES Performing Organization Address City/[facility]/ZIP Co de Phone Number [facility] [place] [address] * POCT Glucose (09/21/2016 12:54 PM EST) Glucose, POC 128 65 - 199 mg/dL [facility] Comment: Supplemental ranges: <140 mg/dL before meals <180 mg/dL all other times of the day Blood specimen (specimen) 09/21/2016 12:54 PM EST 09/21/2016 12:54 PM EST Alirio Esparza MD POINT OF CARE TEST ORDERABLES Performing Organization Address [facility] Co de Phone Number [facility] [place] [address] * EKG 12 Lead (09/21/2016 12:26 PM EST) Ventricular rate 87 BPM MUSE SYSTEM Atrial Rate 87 BPM MUSE SYSTEM P-R Interval 256 ms MUSE SYSTEM QRS Duration 90 ms MUSE SYSTEM Q-T Interval 406 ms MUSE SYSTEM QTC Calculated (Bezet) 488 ms MUSE SYSTEM Calculated P [place] 24 degrees MUSE SYSTEM Calculated R [place] 21 degrees MUSE SYSTEM Calculated T [place] -5 degrees MUSE SYSTEM INTERPRETATION Sinus rhythm [...] Esparza MD ECG ORDERABLES Performing Organization Address City/[facility] Co de Phone [...] course of the esophagus and below the [id number]. There is a right IJ PA catheter [...] the course of theesophagus and below the [id number]. There is a right IJ PA catheter [...] [facility] FIO2 Art 100 % [facility] PF Ratio Art 356 [facility] Blood specimen (specimen) 09/21/2016 12:20 PM EST 09/21/2016 12:20 PM EST Alirio Esparza MD POINT OF CARE TEST ORDERABLES [facility] [place] [address] * (ABNORMAL) BLOOD GAS 2 ARTERIAL (09/21/2016 [...] [facility] FIO2 Art 95 % [facility] Flow Art 0.7 LPM [facility] PF Ratio Art 313 [facility] Temp Art 36.7 Celsius [facility] Blood specimen (specimen) 09/21/2016 10:54 AM EST 09/21/2016 10:54 AM EST Alirio Esparza MD POINT OF CARE TEST ORDERABLES Performing Organization Address [facility]/ZIP Co de Phone Number [facility] [place] [address] * Thrombin time (09/21/2016 10:50 AM EST) [...] Performing Organization Address [facility] Co de Phone Number [facility] [place] [address] * Fibrinogen (09/21/2016 10:50 AM EST) Fibrinogen [...] Performing Organization Address [facility]/ZIP Co de Phone Number [facility] [place] [address] * APTT (09/21/2016 10:50 AM EST) Partial Thromboplastin Time 32 25 - 35 sec [facility] Comment: The recommended therapeutic range for full dose, unfractionated heparin at [facility] is 80 ? 114 seconds. [...] City/[facility]/ZIP Co de Phone Number [facility] [place] [address] * (ABNORMAL) Prothrombin Time (09/21/2016 10:50 AM [...] MD HEMATOLOGY ORDERABLE S [facility] [place] [address] * (ABNORMAL) Hemogram (09/21/2016 10:50 AM EST) [...] [facility] NRBC% auto 0.1 % [facility] NRBC Absolute 0.020(H) 0.000 - 0.000 x10(3)/mc L [facility] Blood specimen (specimen) 09/21/2016 10:50 AM EST 09/21/2016 10:56 AM EST Narrative Resulting Agency Comment Spec In Lab Luis Enrique Quarles MD HEMATOLOGY ORDERABLE S [facility] [place] [address] * Prepare Platelets, Apheresis (09/21/2016 10:30 AM EST) Dispensed? Yes [facility] Blood specimen (specimen) 09/21/2016 10:30 AM EST 09/21/2016 10:28 AM EST Alirio Esparza MD BLOOD BANK PRODUCT ORDERABLES [facility] [place] [address] * (ABNORMAL) BLOOD GAS 2 ARTERIAL (09/21/2016 10:05 AM EST) pH, Arterial 7.33(L) 7.35 - 7.45 [facility] PCO2, Arterial 54(Critic al) 35 - 45 mmHg [facility] Comment:Noted by apprentice instrument technician. PO2, [...] mmol/L [facility] Comment: Noted by apprentice instrument technician. [...] [facility] Temp Art 37.0 Celsius [facility] Blood specimen (specimen) 09/21/2016 10:05 AM EST 09/21/2016 10:05 AM EST Alirio Esparza MD POINT OF CARE TEST ORDERABLES [facility] [place] [address] * (ABNORMAL) BLOOD GAS 2 ARTERIAL (09/21/2016 9:44 AM EST) pH, Arterial 7.22(Criti gabrielle) 7.35 - 7.45 [facility] Comment:Noted by apprentice instrument technician. PCO2, Arterial 70(Critica l) 35 - 45 mmHg [facility] Comment:Noted by apprentice instrument technician. PO2, [...] Performing Organization Address [facility] Co de Phone Number [facility] [place] [address] * (ABNORMAL) Hemoglobin (09/21/2016 9:42 AM EST) Hemoglobin 7.2(L) 11.7 - 15.5 gm/dL [facility] Blood specimen (specimen) 09/21/2016 9:42 AM EST 09/21/2016 9:51 AM EST Narrative Resulting Agency Comment Spec In Lab Alirio Esparza MD HEMATOLOGY ORDERABL ES Performing Organization Address [facility] Co de Phone Number [facility] [place] [address] * Platelet count (09/21/2016 9:42 AM EST) Platelet 159 145 - 357 x10(3)/mc L [facility] Immature Plt % 1.6 0.0 - 7.4 % [facility] Comment: Limitation of the Immature Platelet Fraction (IPF)-May be less reliable when the platelet count is less than 69r094/uL due to statistical imprecision. The IPF value [...] in a decreased state of production. References: [employer] The Clinical Value of the Immature Platelet Fraction (IPF) in Cell Recovery Document Number 10-1143 12/2010 [employer] The Role of the Immature Platelet Fraction (IPF) in the Differential Diagnosis of Thrombocytopenia, Document [id number] V05 P012/13 Blood specimen (specimen) 09/21/2016 9:42 AM EST 09/21/2016 9:51 AM EST Narrative Resulting Agency Comment Spec In Lab Alirio Esparza MD HEMATOLOGY ORDERABL ES [facility] [place] [address] * (ABNORMAL) Hematocrit (09/21/2016 9:42 AM EST) [facility] Hematocrit 21.6(L) 35.7 - 45.8 % [facility] Comment: This result has been called to MICHELLE ALEJANDRE by Serjio Frazier on 09 21 2016 at 0957, and has been read back. Blood specimen (specimen) 09/21/2016 9:42 AM EST 09/21/2016 9:51 AM EST Narrative Resulting Agency Comment Spec In Lab Alirio Esparza MD HEMATOLOGY ORDERABL ES [facility] [place] [address] * Fibrinogen (09/21/2016 9:42 AM EST) [facility] Fibrinogen 219 180 - 510 mg/dL [facility] Comment: Called by: JONNATHAN, Read back by: MICHELLE ALEJANDRE_, Date/Time:09/21/16 10:03_. A fibrinogen level >100 mg/dL is adequate for hemostasis in most patients without underlying bleeding disorders. Blood specimen (specimen) 09/21/2016 9:42 AM EST 09/21/2016 9:51 AM EST Narrative Resulting Agency Comment Spec In Lab Alirio Esparza MD HEMATOLOGY ORDERABL ES [facility] [place] [address] * (ABNORMAL) BLOOD GAS 2 ARTERIAL (09/21/2016 [...] [facility] Temp Art 37.0 Celsius [facility] Blood specimen (specimen) 09/21/2016 9:10 AM EST 09/21/2016 9:10 AM EST Alirio Esparza MD POINT OF CARE TEST ORDERABLES [facility] [place] [address] * Surgical Pathology Report (09/21/2016 9:09 AM EST) Final Diagnosis [id number] ?Location: The signing pathologist has (i) examined [...] City/[facility]/[place] [address] * Specimen to Pathology (surgical or derm) (09/21/2016 9:09 AM EST) AP Specimen 09/21/2016 9:09 AM EST 09/21/2016 9:09 AM EST Narrative [facility] - 09/21/2016 9:09 AM EST Specimen requisition ordered. ??Separate Pathology report to follow Alirio Esparza MD PATHOLOGY/CYTOLOGY ORDERABLES Performing Organization Address City/[facility]/[place] [address] * (ABNORMAL) BLOOD GAS 2 ARTERIAL (09/21/2016 [...] [facility] Co de Phone Number [facility] [place] [address] * (ABNORMAL) BLOOD GAS 2 ARTERIAL (09/21/2016 [...] [facility] FIO2 Art 95 % [facility] Flow Art 1.1 LPM [facility] PF Ratio Art 298 [facility] Temp Art 35.6 Celsius [facility] Blood specimen (specimen) 09/21/2016 8:18 AM EST 09/21/2016 8:18 AM EST Alirio Esparza MD POINT OF CARE TEST ORDERABLES [facility] [place] [address] * Prepare RBC (09/21/2016 7:05 AM EST) Dispensed? Yes [facility] Blood specimen (specimen) 09/21/2016 7:05 AM EST 09/21/2016 7:02 AM EST Alirio Esparza MD BLOOD BANK PRODUCT ORDERABLES [facility] [place] [address] * POCT Glucose (09/21/2016 6:42 AM EST) Glucose, POC 104 65 - 199 mg/dL [facility] Comment: Supplemental ranges: <140 mg/dL before meals <180 mg/dL all other times of the day Blood specimen (specimen) 09/21/2016 6:42 AM EST 09/21/2016 6:42 AM EST Alirio Esparza MD POINT OF CARE TEST ORDERABLES Performing Organization Address City/[facility]/ZIP Co de Phone Number [facility] [place] [address] documented in this encounter Visit Diagnoses Diagnosis [...] dose on Wed09/21/16 at 1230, Until Discontinued, [place] teeth, Routine Given 09/25/2016 9:40 AM EST [...] if phenyleprine and/or vasopressin ineffective.Call pager # [phone] if initiated., Routine Rate/Dose Change 09/21/2016 2:27 [...] 2.0 L/min/M2. Maximum volume 2 L. Call housekeeping assistant for additional fluid orders: pager #[phone]. Rate/Dose Verify 09/22/2016 10:00 AM EST 10 [...] at 0600)1600 (Due - Provider: Kendall Martínez [facility]) aspirin chewable tablet 81 mg(Linked Group [...] dose on Wed09/21/16 at 1230, Until Discontinued, [place] teeth, Routine 0900 (Not Given - Provider: [...] Marek Barnes RN) 09 (Given - Provider: Jsoelyn Caceres RN) potassium chloride (K-DUR/KLOR-CON) extended release [...] Routine documented in this encounter Care Teams Urology Teacher Relationship Specialty Start Date End Date Deborah Quiroga APRN PCP - General Family Medicine 03/24/16 02/04/23 documented as of this encounter
--- OUTSIDE RECORDS SUMMARY | 2024-06-15 14:13 | XMS_ITS | Encounter Summary ---
Author Organization [facility] Address [facility] [place] [address] Care Team Providers Care Entry Manager Name Role Phone Junaid, Deborah Shields APRN Primary Care Provider [phone] Encounter Details Date Type Department Care Team (Late st Contact Info) Description 03/04/2020 External Results Hematology and Oncology at [place] [phone] Ther[employer]humi [place]la Social History Tobacco Use Types [...] EST Office Visit Hematology and Oncology at [place] [phone] Markel Borjas MD [facility] [place] [address] 11/02/2024 12:00 PM EDT Appointment Pulmonology at [place] [phone] 11/02/2024 1:00 PM EDT Office Visit Rheumatology at [place] [phone] Magdalena Peralta MD [facility] [place] [address] 03/01/2025 4:15 PM EDT Office Visit Dermatology at [place] [address] [place] [phone] Marek Bonilla MD [address], [place] [address] documented as of this encounter Procedures Procedure [...] on filedocumented in this encounter Care Teams Entry Manager Relationship Specialty Start Date End Date Deborah Quiroga APRN PCP - General Family Medicine 03/24/16 02/04/23 documented as of this encounter
--- OUTSIDE RECORDS SUMMARY | 2024-06-15 14:13 | XMS_ITS | Encounter Summary ---
Author Organization [facility] Address [facility] [place] [address] Care Team Providers Care Teradata Developer Name Role Phone Deborah Quiroga APRN Primary Care Provider Encounter Details Date Type Department Care Team (Late st Contact Info) Description 06/18/2017 11:00 AM EST Office Visit Hematology [place] [address] Markel Borjas MD [facility] [address] [place] [address] Neutropenia, unspecified type Social History Tobacco Use [...] 11:00 AM EST Hematology Outpatient Clinic [facility] Hematology Outpatient Consult Note CC: 60 [...] TOUCH PREP, CLOT SECTION, CORE ??BIOPSY); [OSR# [id number], COLLECTED 06/23/2016, 19 SLIDES]: ?1. ??Normocellular marrow [...] a clonal lymphoproliferative or myeloproliferative disorder (OSR# [id number]) Chromosome analysis on the marrow aspirate revealed [...] working the same job and participating in [employer] patients. Past Medical/Surgical History: 1. Leukopenia -element of neutropenia, as noted above 2. Aortic Stenosis -severe -AVR surgery 3. Hypercholesterolemia 4. Depression 5. Hypertension 6. 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 Extremities: No edema. Labs: Hgb= 13 Mdkp=293 ANC= 0.6 Imaging As above - reviewed [...] EST Office Visit Hematology and Oncology at [place] [phone] Markel Borjas MD [facility] [address] HEMATOLOGY [place] [address] 11/02/2024 12:00 PM EDT Appointment Pulmonology at [place] [address] 11/02/2024 1:00 PM EDT Office Visit Rheumatology at [place] [address] Magdalena Peralta MD [facility] [place] [address] 03/01/2025 4:15 PM EDT Office Visit Dermatology at [address] [place] [phone] Marek Bonilla MD [address], [place] [address] documented as of this encounter Visit Diagnoses Diagnosis Neutropenia, unspecified type documented in this encounter Care Teams Teradata Developer Relationship Specialty Start Date End Date Deborah Quiroga APRN PCP - General Family Medicine 03/24/16 02/04/23 documented as of this encounter
--- OUTSIDE RECORDS SUMMARY | 2024-06-15 14:13 | XMS_ITS | Encounter Summary ---
[place] [address] Care Team Providers Care Sales Force Administrator Name Role Phone Junaid Deborah Shields APRN Primary Care Provider [phone] Encounter Details Date Type Department Care Team (Late st Contact Info) Description 10/20/2016 11:20 AM EDT Office [place] [phone] Alirio Esparza MD S/P AVR Social History [...] all of her postoperative tests done at [facility]. Her echo shows a well-seated valve. Her EF, for some reason, was read as in the 45% to 50% range. She had a normal EF to start. I think that will need to be repeated at [facility]. She has no perivalve leak. [...] should continue to see Dr. Burrell, her building equipment inspector at [facility]. cc: Dr. Burrell documented in this encounter Plan of Treatment Upcoming Encounters Date Type Department Care Team (Late st Contact Info) Description 06/23/2024 2:00 PM EST Office Visit Hematology [place] [address] Markel Borjas MD [facility] [place] [address] 11/02/2024 12:00 PM EDT [place] [address] 11/02/2024 1:00 PM EDT Office [place] [phone] Magdalena Peralta MD [facility] [place] [address] 03/01/2025 4:15 PM EDT Office Visit Dermatology at [facility] [address] [place] [phone] Marek Bonilla MD [address], [address] [place] [address] documented as of this encounter Visit Diagnoses Diagnosis S/P AVR Heart valve replaced by other means documented in this encounter Care Teams Sales Force Administrator Relationship Specialty Start Date End Date Deborah Quiroga APRN PCP - General Family Medicine 03/24/16 02/04/23 documented as of this encounter
--- OUTSIDE RECORDS SUMMARY | 2024-06-15 14:13 | XMS_ITS | Encounter Summary ---
Author Organization [facility] [place] [address] Care Team Providers Care Migratory Worker Name Role Phone Ashley Quirogazac Shields APRN Primary Care Provider [phone] Encounter Details Date Type Department Care Team (Late st Contact Info) Description 06/18/2017 External Results Hematology and Oncology at [place] [phone] Alexandrea Greenwood RN Neutropenia, unspecified type Social [...] EST Office Visit Hematology [place] [address] Markel Borjas MD [facility] [address] [place] [address] 11/02/2024 12:00 PM EDT Appointment [place] [address] 11/02/2024 1:00 PM EDT Office Visit Rheumatology at [place] [phone] Magdalena Peralta MD [facility] [place] [address] 03/01/2025 4:15 PM EDT Office Visit Dermatology at [place] [address] [place] [address] Marek Bonilla MD [address], [place] [address] documented as of this encounter Procedures Procedure Name Priority Date/Time Associated Diagnosis Comments CBC (WITH DIFF) Routine 06/11/2017 1:19 PM EST Neutropenia, unspecified type COMPREHENSIVE METABOLIC PANEL Routine 06/11/2017 1:19 PM EST Neutropenia, unspecified type documented in this encounter Results * Comprehensive metabolic panel (non-fasting) (06/11/2017 1:19 PM EST) Pathologist [facility] Blood Urea Nitrogen 13 7 - 18 [...] type documented in this encounter Care Teams Migratory Worker Relationship Specialty Start Date End Date Deborah Quiroga, [employer] PCP - General Family Medicine 03/24/16 02/04/23 documented as of this encounter
--- OUTSIDE RECORDS SUMMARY | 2024-06-15 14:13 | XMS_ITS | Encounter Summary ---
Author Organization [facility] Address [facility] [place] [address] Care Team Providers Care Electric Razor Mechanic Name Role Phone Ashley Quirogazac Shields APRN Primary Care Provider +1 [phone] Encounter Details Date Type Department Care Team (Late st Contact Info) Description 11/11/2020 Refill Dermatology at [address] [phone] Taylor Malone, TARGET DEVELOPER Social History Tobacco Use Types Packs/Day Years [...] Hematology [place] [address] Markel Borjas MD [facility] [address] HEMATOLOGY [place] [address] 11/02/2024 12:00 PM EDT Appointment [place] [address] 11/02/2024 1:00 PM EDT Office [place] [address] Magdalena Peralta MD [facility] [address] [place] [address] 03/01/2025 4:15 PM EDT Office Visit Dermatology at [place] [address] [place] [address] Marek Bonilla MD [address], [place] [address] documented as of this encounter Visit Diagnoses Not on filedocumented in this encounter Care Teams Electric Razor Mechanic Relationship Specialty Start Date End Date Deborah Quiroga APRN PCP - General Family Medicine 03/24/16 02/04/23 documented as of this encounter
--- OUTSIDE RECORDS SUMMARY | 2024-06-15 14:13 | XMS_ITS | Encounter Summary ---
Author Organization [facility] Address [facility] [place] [address] Care Team Providers Care District Gauger Name Role Phone Junaid, Deborah Shields APRN Primary Care Provider +1 [phone] Reason for Visit * Reason Comments Schedule Office Case Pain right leg Encounter Details Date Type Department Care Team (Late st Contact Info) Description 12/11/2016 9:00 AM EDT Office Visit Hematology [place] [address] Markel Borjas MD [facility] DR HEMATOLOGY [place] [address] Neutropenia, unspecified type Social History Tobacco Use [...] 12/11/2016 9:00 AM EDT Hematology Outpatient Clinic [facility] Hematology Outpatient Consult Note CC: 60 year old woman with h/o worsening due for upcoming CT Surgery referred for work-up of incidentally found leukopenia with neutropenia on pre-op assessment. The patient comes to clinic alone.Available medical records were reviewed. HPI: Purnima is a 60-year-old woman referred by Dr. sEparza for further assessment of leukopenia and neutropenia [...] TOUCH PREP, CLOT SECTION, CORE ??BIOPSY); [OSR# [id number], COLLECTED 06/23/2016, 19 SLIDES]: ?1. 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 Extremities: No edema. Labs: Hgb= 13 Qcgv=919 ANC= 0.5 Imaging As above - reviewed [...] EST Office Visit Hematology [place] [address] Markel Borjas MD [facility] DR HEMATOLOGY [place] [address] 11/02/2024 12:00 PM EDT Appointment [place] [phone] 11/02/2024 1:00 PM EDT Office [place] [address] Magdalena Peralta MD [facility] [place] [address] 03/01/2025 4:15 PM EDT Office Visit Dermatology at [place] [address] [place] [address] Marek Bonilla MD [address], [place] [address] documented as of this encounter Results * [...] MD HEMATOLOGY ORDERAB LES Performing Organization Address City/[facility]/ZIP [...] type documented in this encounter Care Teams District Gauger Relationship Specialty Start Date End Date Deborah Quiroga APRN PCP - General Family Medicine 03/24/16 02/04/23 documented as of this encounter
--- OUTSIDE RECORDS SUMMARY | 2024-06-15 14:13 | XMS_ITS | Encounter Summary ---
Author Organization [facility] Address [facility] Erika becerra [place] [id number] Care Team Providers Care Transcribing Machine Mechanic Name Role Phone Ashley Quirogan Cornelius ANURAG Primary Care Provider +1 [phone] Encounter Details Date Type Department Care Team (Late st Contact Info) Description 12/04/2016 External Results Hematology and Oncology at [place] [phone] Teresa Dodson RN Social History Tobacco Use [...] EST Office Visit Hematology and Oncology at [place] [phone] Markel Borjas MD [facility] [place] [address] 11/02/2024 12:00 PM EDT Appointment Pulmonology at [place] [phone] 11/02/2024 1:00 PM EDT Office Visit Rheumatology at [place] [phone] Magdalena Peralta MD [facility] [place] [address] 03/01/2025 4:15 PM EDT Office Visit Dermatology at [place] [address] [place] [address] Marek Bonilla MD [address], [place] [address] documented as of this encounter Procedures Procedure Name Priority Date/Time Associated Diagnosis Comments CBC (WITH DIFF) Routine 12/03/2016 11:35 AM EDT COMPREHENSIVE METABOLIC PANEL Routine 12/03/2016 11:35 AM EDT documented in this encounter Results * (ABNORMAL) Comprehensive metabolic panel (non-fasting) (12/03/2016 11:35 AM EDT) Glucose 85([facility]) Blood Urea Nitrogen 11([facility]) Creatinine 0.93(Exte rnal Lab) Sodium 140(Exter nal Lab) Potassium 4.2(Exter nal Lab) Chloride 104(Exter nal Lab) Calcium 10.0(Exte rnal Lab) Protein, Total 8.1(Exter nal Lab) Albumin 3.5(Exter nal Lab) Bilirubin, Total 0.25(Exte rnal Lab) Alkaline Phosphatase 96([facility]) Aspartate Aminotransferase 18([facility]) Alanine Aminotransferase 21([facility]) Blood specimen (specimen) 12/03/2016 11:35 AM EDT Historical Provider CHEMISTRY ORDERAB LES * (ABNORMAL) CBC (with Diff) (12/03/2016 11:35 AM EDT) White Blood Cell 1.61(EXTER NAL/ABN) 4.4 - 10.8 Hemoglobin 13.0(Exter nal Lab) Hematocrit 39.8(Exter nal Lab) Platelet 248([facility]) Neutrophil Absolute (ANC) - Automated 0.5(TIRE AND TUBE REPAIRER AL/ABN) Blood specimen (specimen) 12/03/2016 11:35 AM EDT Historical Provider HEMATOLOGY ORDERA BLES documented in this encounter Visit Diagnoses Not on filedocumented in this encounter Care Teams Transcribing Machine Mechanic Relationship Specialty Start Date End Date Deborah Quiroga, FLAME HARDENING MACHINE OPERATOR PCP - General Family Medicine 03/24/16 02/04/23 documented as of this encounter
--- OUTSIDE RECORDS SUMMARY | 2024-06-15 14:13 | XMS_ITS | Encounter Summary ---
[place] [address] Care Team Providers Care Flight Crew Ordnanceman Name Role Phone Ashley Quirogan Cornelius ANURAG Primary Care Provider +1 [phone] Reason for Visit * Reason Comments Acrochordon Rosacea Encounter Details Date Type Department Care Team (Late st Contact Info) Description 12/05/2020 3:00 PM EDT Office Visit Dermatology at [address] [address] Marek Bonilla MD [address] [facility], [place] [address] Inflamed acrochordon Social History Tobacco Use Types [...] EST Office Visit Hematology [place] [address] Markel Borjas MD [facility] DR [place] [address] 11/02/2024 12:00 PM EDT Appointment Pulmonology at [place] [address] 11/02/2024 1:00 PM EDT Office Visit [place] [address] Magdalena Peralta MD [facility] [place] [address] 03/01/2025 4:15 PM EDT Office Visit Dermatology at [address] [place] [address] Marek Bonilla MD [address], [place] [address] documented as of this encounter Visit Diagnoses Diagnosis Inflamed acrochordon Unspecified hypertrophic and atrophic condition of skin documented in this encounter Care Teams Flight Crew Ordnanceman Relationship Specialty Start Date End Date Deborah Quiroga APRN PCP - General Family Medicine 03/24/16 02/04/23 documented as of this encounter
--- OUTSIDE RECORDS SUMMARY | 2024-06-15 14:13 | XMS_ITS | Encounter Summary ---
[place] [address] Care Team Providers Care Occupational Ther Name Role Phone Ashley Quirogan Cornelius ANURAG Primary Care Provider +1 [phone] Reason for Visit * Reason Onset Date Comments Medical Care Coordination 07/27/2017 Encounter Details Date Type Department Care Team (Late st Contact Info) Description 07/27/2017 Telephone Hematology [place] [address] Alexandrea Greenwood RN Medical Care Coordination Social [...] 07/27/2017 12:25 PM EST Message received from area secretary: Injection/Infusion Referral Call placed to [facility] @ [phone] Spoke w/ CURATORIAL ASSISTANT Services to be provided for pt are: CBC/CMP DONE Q6 MONTHS X2 STARTING NOVEMBER 2017 TECH confirmed they would provide services to pt - I CALLED PT, LM. Pt orders faxed to [phone] documented in this encounter Plan of Treatment Upcoming Encounters Date Type Department Care Team (Late st Contact Info) Description 06/23/2024 2:00 PM EST Office Visit Hematology [place] [address] Markel Borjas MD [facility] [address] [place] [address] 11/02/2024 12:00 PM EDT Appointment Pulmonology at [place] [address] 11/02/2024 1:00 PM EDT Office Visit Rheumatology at [place] [address] Magdalena Peralta MD [facility] [place] [address] 03/01/2025 4:15 PM EDT Office Visit Dermatology at [place] [address] [place] [address] Marek Bonilla MD [address], [place] [address] documented as of this encounter Visit Diagnoses Not on filedocumented in this encounter Care Teams Occupational Ther Relationship Specialty Start Date End Date Deborah Quiroga APRN PCP - General Family Medicine 03/24/16 02/04/23 documented as of this encounter
--- OUTSIDE RECORDS SUMMARY | 2024-06-15 14:13 | XMS_ITS | Encounter Summary ---
[place] [address] Care Team Providers Care Branch Maker Name Role Phone Ashley Quirogazac Shields APRN Primary Care Provider +1 [phone] Reason for Visit * Reason Onset Date Comments Results 12/03/2016 Encounter Details Date Type Department Care Team (Late st Contact Info) Description 12/03/2016 Telephone Hematology [place] [address] Yudith Valentine RN Results Social [...] EDT RN received call from Maddy at [facility] reporting critical WBC at 1.61, and ANC of 0.5. She will fax the full results to this office for rn concurrent review notified DR Borjas of above results documented in this encounter Plan of Treatment Upcoming Encounters Date Type Department Care Team (Late st Contact Info) Description 06/23/2024 2:00 PM EST Office Visit Hematology [place] [address] Markel Borjas MD [facility] DR HEMATOLOGY [place] [address] 11/02/2024 12:00 PM EDT Appointment Pulmonology at [place] [phone] 11/02/2024 1:00 PM EDT Office [place] [address] Magdalena Peralta MD [facility] [place] [address] 03/01/2025 4:15 PM EDT Office Visit Dermatology at [place] [address] [place] [address] Marek Bonilla MD [address], [place] [address] documented as of this encounter Visit Diagnoses Not on filedocumented in this encounter Care Teams Branch Maker Relationship Specialty Start Date End Date Deborah Quiroga APRN PCP - General Family Medicine 03/24/16 02/04/23 documented as of this encounter
--- OUTSIDE RECORDS SUMMARY | 2024-06-15 14:13 | XMS_ITS | Encounter Summary ---
[place] [address] Care Team Providers Care Equipment Or Machinery Cleaner Name Role Phone Junaid Deborah Shields APRN Primary Care Provider +1 [phone] Reason for Visit * Reason Comments Follow-up Encounter Details Date Type Department Care Team (Late st Contact Info) Description 01/10/2021 4:30 PM EDT Office Visit Dermatology at [place] [address] [place] [address] Marek Bonilla MD [address] [facility] DERMATOLOGY [place], [place] [phone] Rosacea Social History Tobacco Use Types Packs/Day [...] cutaneous and ocular 2. Previously told by boom man that she had corneal tears from her [...] 3 refills. Will call this in her [facility] in [place] 3. Continue metronidazole 0.75% gel applying once [...] Office Visit Hematology [place] [address] Markel Borjas MD [facility] [address] [place] [address] 11/02/2024 12:00 PM EDT Appointment [place] [address] 11/02/2024 1:00 PM EDT Office Visit [place] [address] Magdalena Peralta MD [facility] [address] 03/01/2025 4:15 PM EDT Office Visit Dermatology at [place] [address] [place] [address] Marek Bonilla MD [address], [place] [address] documented as of this encounter Visit Diagnoses Diagnosis Rosacea documented in this encounter Care Teams Equipment Or Machinery Cleaner Relationship Specialty Start Date End Date Deborah Quiroga APRN PCP - General Family Medicine 03/24/16 02/04/23 documented as of this encounter
--- OUTSIDE RECORDS SUMMARY | 2024-06-15 14:13 | XMS_ITS | Encounter Summary ---
Author Organization [facility] Address [facility] [place] [address] Care Team Providers Care Molder Machine Tender Name Role Phone Ashley Quirogazac Shields APRN Primary Care Provider +1- [phone] Encounter Details Date Type Department Care Team (Late st Contact Info) Description 02/06/2020 Orders Only Hematology [place] [address] Markel Borjas MD [facility] HEMATOLOGY [place] [address] Neutropenia, unspecified type Social History Tobacco Use [...] EST Office Visit Hematology [place] [address] Markel Borjas MD [facility] HEMATOLOGY [place] [address] 11/02/2024 12:00 PM EDT Appointment [place] [address] 11/02/2024 1:00 PM EDT Office [place] [address] Magdalena Peralta MD [facility] [place] [address] 03/01/2025 4:15 PM EDT Office Visit Dermatology at [place] [address] [facility] [place] [address] Marek Bonilla MD [address], [place] Katherine [place] [address] documented as of this encounter Visit Diagnoses Diagnosis Neutropenia, unspecified type documented in this encounter Care Teams Molder Machine Tender Relationship Specialty Start Date End Date Deborah Quiroga APRN PCP - General Family Medicine 03/24/16 02/04/23 documented as of this encounter
--- OUTSIDE RECORDS SUMMARY | 2024-06-15 14:13 | XMS_ITS | Encounter Summary ---
Author Organization [facility] Address [facility] [place] [address] Care Team Providers Care Checkout Supervisor Name Role Phone Ashley Quirogan Cornelius ANURAG Primary Care Provider +1 [phone] Encounter Details Date Type Department Care Team (Late st Contact Info) Description 07/21/2017 Orders Only Hematology and Oncology at [place] [phone] Alexandrea Greenwood RN Other neutropenia Social History [...] EST Office Visit Hematology and Oncology at [place] [phone] Markel Borjas MD [facility] [address] [place] [address] 11/02/2024 12:00 PM EDT Appointment Pulmonology at [place] [phone] 11/02/2024 1:00 PM EDT Office Visit Rheumatology at [place] [phone] Magdalena Peralta MD [facility] [place] [address] 03/01/2025 4:15 PM EDT Office Visit Dermatology at [place] [address] [facility] [address] Marek Bonilla MD [address], [place] [address] documented as of this encounter Visit Diagnoses Diagnosis Other neutropenia documented in this encounter Care Teams Checkout Supervisor Relationship Specialty Start Date End Date Deborah Quiroga APRN PCP - General Family Medicine 03/24/16 02/04/23 documented as of this encounter
--- OUTSIDE RECORDS SUMMARY | 2024-06-15 14:13 | XMS_ITS | Encounter Summary ---
Author Organization [facility] [place] [address] Care Team Providers Care Review Nurse Name Role Phone Ashley Quirogan Cornelius ANURAG Primary Care Provider +1 [phone] Encounter Details Date Type Department Care Team (Late st Contact Info) Description 02/07/2020 Telephone Hematology [place] [address] Ellen Rios RN Social History [...] 02/07/2020 12:59 PM EDT Message received from marketing secretary: Injection/Infusion Referral Services to be provided for pt are: CBC only at [facility]- Pt will go by 02/27 Orders faxed to [phone]). Spoke with pt. She will call [facility] directly to schedule a time that works for her. documented in this encounter Plan of Treatment Upcoming Encounters Date Type Department Care Team (Late Contact Info) Description 06/23/2024 2:00 PM EST Office Visit Hematology [place] [address] Markel Borjas MD [facility] DR [place]AT[place] [address] 11/02/2024 12:00 PM EDT Appointment Pulmonology at [place] [address] 11/02/2024 1:00 PM EDT Office Visit Rheumatology at [place] [phone] Magdalena Peralta MD [facility] [place] [address] 03/01/2025 4:15 PM EDT Office Visit Dermatology at [place] [address] [facility] [place] [address] Marek Bonilla MD [address], [place] [address] documented as of this encounter Visit Diagnoses Not on filedocumented in this encounter Care Teams Review Nurse Relationship Specialty Start Date End Date Deborah Quiroga APRN PCP - General Family Medicine 03/24/16 02/04/23 documented as of this encounter
--- OUTSIDE RECORDS SUMMARY | 2024-06-15 14:14 | XMS_ITS | Encounter Summary ---
Author Organization [facility] Address [facility] [place] [address] Care Team Providers Care Pole Classifier Name Role Phone Ashley Quirogan Cornelius ANURAG Primary Care Provider +1- [phone] Encounter Details Date Type Department Care Team (Late st Contact Info) Description 06/16/2016 Orders Only Hematology [place] [address] Nitesh Pina Jr., MD [facility] DR HEMATOLOGY [place] [address] Cyclical neutropenia Social History Tobacco Use Types [...] Office Visit Hematology [place] [address] Markel Borjas MD [facility] DR HEMATOLOGY [place] [address] 11/02/2024 12:00 PM EDT Appointment [place] [address] 11/02/2024 1:00 PM EDT Office Visit [place] [address] Magdalena Peralta MD [facility] [place] [address] 03/01/2025 4:15 PM EDT Office Visit Dermatology at [place] [address] [facility] [place] [address] Marek Bonilla MD [address], [place] [address] documented as of this encounter Visit Diagnoses Diagnosis Cyclical neutropenia Cyclic neutropenia documented in this encounter Care Teams Pole Classifier Relationship Specialty Start Date End Date Deborah Quiroga APRN PCP - General Family Medicine 03/24/16 02/04/23 documented as of this encounter
--- OUTSIDE RECORDS SUMMARY | 2024-06-15 14:14 | XMS_ITS | Encounter Summary ---
[place] [address] Care Team Providers Care Mapper Name Role Phone Deborah Quiroga ANURAG Primary Care Provider +1- [phone] Reason for Visit * Reason Onset Date Comments Medical Care Coordination 07/31/2016 Encounter Details Date Type Department Care Team (Late st Contact Info) Description 07/31/2016 Telephone Hematology [place] [address] Alexandrea Greenwood RN Medical Care Coordination Social [...] on 08/04/15, RN faxed lab req to [phone] at Aydee's request. RN instructed pt on Dr. Borjas's direction above. Pt verbalized understanding. documented in this encounter Plan of Treatment Upcoming Encounters Date Type Department Care Team (Late st Contact Info) Description 06/23/2024 2:00 PM EST Office Visit Hematology [place] [address] Markel Borjas MD [facility] [address] [place] [address] 11/02/2024 12:00 PM EDT Appointment Pulmonology at [place] [phone] 11/02/2024 1:00 PM EDT Office [place] [address] Magdalena Peralta MD [facility] [address] 03/01/2025 4:15 PM EDT Office Visit Dermatology at [place] [address] [place] [address] Marek Bonilla MD [address] [place] DERMATOLOGY [place], [place] [address] documented as of this encounter Visit Diagnoses Not on filedocumented in this encounter Care Teams Mapper Relationship Specialty Start Date End Date Deborah Quiroga APRN PCP - General Family Medicine 03/24/16 02/04/23 documented as of this encounter
--- OUTSIDE RECORDS SUMMARY | 2024-06-15 14:14 | XMS_ITS | Encounter Summary ---
[place] [address] Care Team Providers Care Violin Teacher Name Role Phone Ashley Quirogan Cornelius ANURAG Primary Care Provider +1- [phone] Reason for Visit * Reason Onset Date Comments Medication Management 09/14/2016 Encounter Details Date Type Department Care Team (Late st Contact Info) Description 09/14/2016 Telephone H[place]ology [place] [address] Alexandrea Grenewood, environmental geologist Management Social History Tobacco Use Types Packs/Day [...] 09/14/2016 9:12 AM EST Message received from cinder snapper: Purnima called, asking for clarification on when [...] Visit Hematology and Oncology at [place] [phone] Markel Borjas MD [facility] DR HEMATOLOGY [place] [address] 11/02/2024 12:00 PM EDT [place] [address] 11/02/2024 1:00 PM EDT Office Visit Rheumatology at [place] [phone] Magdalena Peralta MD [facility] DR [place]AT[place] [address] 03/01/2025 4:15 PM EDT Office Visit Dermatology at [address] [place] [address] Marek Bonilla MD [address], [place] [address] documented as of this encounter Visit Diagnoses Not on filedocumented in this encounter Care Teams Violin Teacher Relationship Specialty Start Date End Date Deborah Quiroga APRN PCP - General Family Medicine 03/24/16 02/04/23 documented as of this encounter
--- OUTSIDE RECORDS SUMMARY | 2024-06-15 14:14 | XMS_ITS | Encounter Summary ---
Author Organization [facility] Address [facility] [place] [address] Care Team Providers Care [facility] Name Role Phone Ashley Quirogazac Shields APRN Primary Care Provider [phone] Encounter Details Date Type Department Care Team (Latest Contact Info) Description 08/18/2016 4:40 PM EST Laboratory Appointment Lab at [place] [phone] Aortic valve stenosis, unspecified etiology Social History [...] Visit Hematology and Oncology at [place] [phone] Markel Borjas MD [facility] [place] [address] 11/02/2024 12:00 PM EDT Appointment Pulmonology at [place] [phone] 11/02/2024 1:00 PM EDT Office Visit Rheumatology at [place] [phone] Magdalena Peralta MD [facility] [place] [address] 03/01/2025 4:15 PM EDT Office Visit Dermatology at [place] [address] [place] [phone] Marek Bonilla MD [address] [place] [address] documented as of this encounter Procedures Procedure Name Priority Date/Time Associated Diagnosis Comments ABORH RECHECK STATUS Routine 08/18/2016 4:50 PM EST TYPE AND SCREEN, SDP (FUTURE SURGERY, [facility] SAME DAY PROGRAM [...] BANK LAB B[facility] ALEJO [facility] [place] [address] * Antibody screen (08/18/2016 4:50 PM EST) Ab Screen Interp Negative [facility] Expires at [id number] on: 09/24/2016 [facility] Comment: Corrected from 09/17/16 12:00 [Unknown] on 09/09/16 02:32 by Shireen Treviño Blood specimen (specimen) 08/18/2016 4:50 PM EST 08/18/2016 5:11 PM EST Narrative Resulting Agency Comment Spec In Lab Alirio Esparza MD BLOOD BANK LAB [facility]TEGAR[facility]ERO Performing Organization Address [facility] Co de Phone Number [facility] [place] [address] * ABO/Rh Typing (08/18/2016 4:50 PM EST) Pathologist [facility] ABORH Type B Pos [facility] Blood specimen (specimen) 08/18/2016 4:50 PM EST 08/18/2016 5:11 PM EST Narrative Resulting Agency Comment Spec In Lab Alirio Esparza MD BLOOD BANK LAB [facility] ORTEGAROMERO Performing Organization Address [facility] de Phone Number [facility] [place] [address] * Basic Metabolic Panel (non-fasting) (08/18/2016 4:50 PM EST) [facility] Glucose 82 65 - 199 mg/dL [facility] [...] the following links into your internet browser. [email or web address] Blood specimen (specimen) 08/18/2016 4:50 PM EST 08/18/2016 5:03 PM EST Narrative Resulting Agency Comment Spec In Lab Alirio Esparza MD CHEMISTRY ORDERABLE S Performing Organization Address City/State/[facility] Co de Phone Number [facility] [place] [address] documented in this encounter Visit Diagnoses Diagnosis Aortic valve stenosis, unspecified etiology documented in this encounter Care Teams [facility] Relationship Specialty Start Date End Date Deborah Quiroga APRN PCP - General Family Medicine 03/24/16 02/04/23 documented as of this encounter
--- OUTSIDE RECORDS SUMMARY | 2024-06-15 14:14 | XMS_ITS | Encounter Summary ---
Author Organization [facility] [place] [address] Care Team Providers Care Community Chest Officer Name Role Phone Ashley Quirogazac Shields APRN Primary Care Provider [phone] Encounter Details Date Type Department Care Team (Late st Contact Info) Description 07/22/2016 External Results Hematology and Oncology at [place] [phone] Alexandrea Greenwood RN Neutropenia, unspecified type Social [...] EST Office Visit Hematology [place] [address] Markel Borjas MD [facility] [address] HEMATOLOGY [place] [address] 11/02/2024 12:00 PM EDT Appointment [place] [address] 11/02/2024 1:00 PM EDT Office Visit Rheumatology at [place] [phone] Magdalena Peralta MD [facility] [place] [address] 03/01/2025 4:15 PM EDT Office Visit Dermatology at [place] [address] [place] [address] Marek Bonilla MD [address], [place] [address] documented as of this encounter Procedures Procedure Name Priority Date/Time Associated Diagnosis Comments COPPER, SERUM Routine 07/20/2016 10:30 AM EST Neutropenia, unspecified type CMV PCR, QUANTITATIVE Routine 07/20/2016 10:30 AM EST Neutropenia, unspecified type MONONUCLEOSIS SCREEN ([facility]) Routine 07/20/2016 10:30 AM EST [...] type documented in this encounter Care Teams Community Chest Officer Relationship Specialty Start Date End Date Deborah Quiroga APRN PCP - General Family Medicine 03/24/16 02/04/23 documented as of this encounter
--- OUTSIDE RECORDS SUMMARY | 2024-06-15 14:14 | XMS_ITS | Encounter Summary ---
Author Organization [facility] Address [facility] [place] [address] Care Team Providers Care Field Cane Scaler Name Role Phone Deborah Quiroga APRN Primary Care Provider [phone] Reason for Visit * Reason Comments Schedule Office Case * Consultation (Routine) - Closed Specialty Diagnoses / Procedures Referred By Contac t Referred To Contact Hematology and Oncology Diagnoses Leukopenia Neutropenia LEUKOPENIA W/NEUTROPENIA Procedures TC PEGFILGRASTIM, 6MG, INJECTION LEUKOPENIA W/NEUTROPENIA Alirio Esparza MD [facility] [place] [address] Mario Alberto Ramos Jr., MD [facility] DR HEMATOLOGY [place] [address] Referral ID Status Reason Start Date Expiration Date V isits Requested Visits Authorized [id number] Closed Consult, Test & Treat 07/17/2016 07/17/2017 1 1 Encounter Details Date Type Department Care Team (Late st Contact Info) Description 06/09/2016 3:00 PM EST Office Visit Hematology [place] [address] Mario Alberto Ramos Jr., MD [facility] HEMATOLOGY [place] [address] Cyclical neutropenia Social History Tobacco Use Types [...] 06/09/2016 3:00 PM EST Hematology Outpatient Clinic [facility] Hematology Outpatient Consult Note CC: [...] Unknown See Comment Flow Cytometry Report Unknown [id number] ... HematoPathology: Flow Cytometry DIAGNOSIS 1. No [...] Office Visit Hematology [place] [address] Markel Borjas MD [facility] DR HEMATOLOGY [place] [address] 11/02/2024 12:00 PM EDT Appointment [place] [phone] 11/02/2024 1:00 PM EDT Office Visit [place] [address] Magdalena Peralta MD [facility] [place] [address] 03/01/2025 4:15 PM EDT Office Visit Dermatology at [place] [address] [place] [phone] Marek Bonilla MD [address], [place] [address] documented as of this encounter Procedures Procedure [...] (06/09/2016 4:53 PM EST) Flow Cytometry Report [id number] ?Location: The signing pathologist has (i) examined [...] high complexity clinical laboratory testing. SPECIMEN PROCESSING [id number] Cells for immunophenotypic analysis were derived from [...] MD PATHOLOGY/CYTOLOGY O RDERABLES Performing Organization Address City/[facility]/ZIP Co de Phone Number [facility] [place] [address] * Scan, Peripheral Blood (06/09/2016 4:53 PM EST) Pathologist [facility] Plat estimate Normal [facility] RBC Morphology Normal [facility] Blood specimen (specimen) 06/09/2016 4:53 PM EST 06/09/2016 5:00 PM EST Narrative Resulting Agency Comment Spec In Lab Mario Alberto Ramos Jr., MD HEMATOLOGY ORDERABLE S Performing Organization Address City/[facility]/ZIP Co de Phone Number [facility] [place] [address] * (ABNORMAL) Differential, Automated (06/09/2016 4:53 PM EST) Pathologist [facility] Neutrophil % 27.7 % [facility] Neutrophil Absolute 0.48(Crit ical) 1.70 [...] [facility] Monocyte % 13.3 % [facility] Monocyte Abs 0.2(L) 0.3 - 0.9 x10(3)/ L [facility] Eos % 0.6 % [facility] Eosinophils Abs 0.0 0.0 - 0.4 x10(3)/[facility] LABORAT[facility] Basophil % 1.2 % [facility] Baso Absolute 0.0 0.0 - 0.1 x10(3)/[facility] LABORAT[facility] Immature Gran % 0.00 [...] S [facility] [place] [address] * (ABNORMAL) Hemogram (06/09/2016 4:53 PM EST) [...] [facility] Co de Phone Number [facility] [place] [address] * Immunophenotyping Flow Cytometry (06/09/2016 4:53 PM EST) Immunophenotyping Flow See Comment [facility] Comment: When completed by the Pathologist, the Flow Cytometry Report ([id number]) will display under the Pathology Results section within [facility]. Specimen of unknown material (specimen) 06/09/2016 4:53 PM EST 06/09/2016 5:00 PM EST Narrative Resulting Agency Comment Spec In Lab Mario Alberto Ramos Jr., MD HEMATOLOGY ORDERABLE S [facility] [place] [address] documented in this encounter Visit Diagnoses Diagnosis Cyclical neutropenia Cyclic neutropenia documented in this encounter Care Teams Field Cane Scaler Relationship Specialty Start Date End Date Deborah Quiroga, SPECIAL EDUCATION RESOURCE ROOM TEACHER PCP - General Family Medicine 03/24/16 02/04/23 documented as of this encounter
--- OUTSIDE RECORDS SUMMARY | 2024-06-15 14:14 | XMS_ITS | Encounter Summary ---
[place] [address] Care Team Providers Care Manager Site Name Role Phone Deborah Quiroga ANURAG Primary Care Provider [phone] Encounter Details Date Type Department Care Team (Late st Contact Info) Description 09/11/2016 Orders Only Hematology [place] [address] Alexandrea Greenwood RN Social History [...] the original note were not included. [facility] [phone] Date: 09/11/16 Patient Name: Onesimo Thacker : 1955 Diagnosis: Neutropenia Referral to [site]: [facility] Orders: ? Growth factor: [x] Neulasta 6mg SQ injection x 1 on 09/16/16 Signature: Makrel Borjas MD beeper # [id number] Co-signature [if needed]: documented in this encounter Plan of Treatment Upcoming Encounters Date Type Department Care Team (Late st Contact Info) Description 06/23/2024 2:00 PM EST Office Visit Hematology [place] [address] Markel Borjas MD [facility] [address] [place] [address] 11/02/2024 12:00 PM EDT Appointment [place] [address] 11/02/2024 1:00 PM EDT Office [place] [address] Magdalena Peralta MD [facility] [place] [address] 03/01/2025 4:15 PM EDT Office Visit Dermatology at [place] [address] [place] [address] Marek Bonilla MD [address] [facility], [place] [address] documented as of this encounter Procedures Procedure Name Priority Date/Time Associated Diagnosis Comments TRANSESOPHAGEAL ECHOCARDIOGRAM (GAVINO) Routine 09/22/2016 documented in this encounter Results * Transesophageal Echocardiogram (GAVINO) (09/22/2016) Anatomical Region Laterality Modality Other 09/22/2016 Narrative 09/22/2016 8:30 AM EST Procedure: ?Transesophageal Echocardiogram Patient: ?ANDREW ONESIMO M ? (Age): 1955(61y) Med Rec#: ? [id number] ?Sex: ?M ? Site Loc: ? DH ?Ht / Wt: ??(cm)/ (kg) ? Pt. Loc: ?OR ? Study Date: ?? 09/21/2016 ?Pt. Type: Tape: ? 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 AVR for severe Rhythm: ? [...] ? Mid-Inferior ?Normal ? Mid-Inferoseptal ?Normal ? [place]-Septal ? Normal ? [place]-Anterior ? Normal ? [place]-Lateral ?Normal ? [place]-Inferior ? Normal ? [place]-Tip ?Normal ? This report has been electronically signed by: Henrik Yarbrough M.D. ? 09/22/2016 08:30:41 Images reviewed and interpretation verified [facility] Procedure Note Henrik Yarbrough MD - 09/22/2016 Procedure: Transesophageal Echocardiogram Patient: ANDREW Mejias (Age): 1955(61y) Med Rec#: [id number] Sex: M Site Loc: [facility] Ht / Wt: (cm)/ (kg) Pt. Loc: OR Study Date: 09/21/2016 Pt. 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 09/22/2016 08:30:41 Images reviewed and interpretation verified [facility] Unknown ECHO ORDERABLES documented in this encounter Visit Diagnoses Not on filedocumented in this encounter Care Teams Manager Site Relationship Specialty Start Date End Date Deborah Quiroga APRN PCP - General Family Medicine 03/24/16 02/04/23 documented as of this encounter
--- OUTSIDE RECORDS SUMMARY | 2024-06-15 14:14 | XMS_ITS | Encounter Summary ---
Author Organization [facility] Address [facility] [place] [address] Care Team Providers Care Information Lead Name Role Phone Junaid, Deborah Shields APRN Primary Care Provider [phone] Reason for Visit * Auth/Cert Specialty Diagnoses / Procedures Referred By Crispin t Referred To Contact Diagnoses AVS Procedures CARDIAC CATHETERIZATION Referral ID Status Reason Start Date Expiration Date Visits Re quested Visits Authorized [id number] 1 1 Encounter Details Date Type Department Care Team (Late st Contact Info) Description 06/03/2016 7:30 AM EDT - 06/03/2016 8:30 AM EDT [place] [phone] Mario Alberto Escobedo MD [facility] [place] [address] CARDIAC CATHETERIZATION Social History Tobacco Use Types [...] by your doctor, do not take any zbsy-irg-[id number] medicinesor herbal preparations without first discussing this with your doctor or pharmacist. There is the possibility of side effects and interactions when these are combined. Follow Up Care Who to call with questions or problems If there are any questions or problems that you think might be related to your cardiac cath or angioplasty, contact the recorder helper gravity prospecting extension course coordinator by calling [facility] at . * Patient Instructions* Felicia Corrigan - 06/03/2016 9:33 AM EDT Cardiology Instructions Call your doctor if: Chest pain, dyspnea, pain or swelling in legs occurs. If you have non-emergent questions between now and the time of your follow up appointments: -During 8am-5pm Wednesday through Wednesday call [phone] to speak with a nurse in the cardiology clinic -All other times call [phone] and ask to speak to the metal spraying machine operator extension course coordinator. MEDICATIONS - restart your spironolactone, discontinue prior [...] Appointments: Primary care provider: Cardiology: Deborah Hahn, REGIONAL SERVICE MANAGER [phone] Follow up as planned or as needed. Dr. Esparza [phone] Other follow-up appointment: Hematology - Dr. Mario [...] Hematology [place] [address] Markel Borjas MD [facility] [address] [place] [address] 11/02/2024 12:00 PM EDT Appointment [place] [address] 11/02/2024 1:00 PM EDT Office [place] [address] Magdalena Peralta MD [facility] [place] [address] 03/01/2025 4:15 PM EDT Office Visit Dermatology at [place] [address] [place] [address] Marek Bonilla MD [address] [place] [address] documented as of this encounter Procedures Procedure [...] EDT Mario Alberto Escobedo MD CHEMISTRY ORDERABLES [facility] [place] [address] * Methylmalonic acid, serum (06/03/2016 11:45 AM EDT) Methylmalonic Acid (NOVEMBER) 0.21 <=0.40 nmol/mL [facility] Comment: Test Performed by: [address] [address] Masking Machine Feeder: Raymond Chaudhry II, M.D., Ph.D. Blood specimen (specimen) 06/03/2016 11:45 AM EDT 06/03/2016 1:57 PM EDT Narrative Resulting Agency Comment Spec In Lab Mario Alberto Escobedo MD LAB SEND OUT ORDERAB LES Performing Organization Address [facility] Co de Phone Number [facility] [place] [address] * Granulocyte Antibody (06/03/2016 11:45 AM EDT) Granulocyte Ab (NOVEMBER) Negative Not Applicable [facility] Comment: ADDITIONAL INFORMATION Method: Immunofluorescent Assay Performing Laboratory CLIA# [id number] This test was developed and its performance characteristics determined by [facility] in a manner consistent with CLIA requirements. This test has not been cleared or approved by the U.S. Food and Drug Administration. Test Performed by: [place] [address] Masking Machine Feeder: Raymond Chaudhry II, M.D., Ph.D. Blood specimen (specimen) 06/03/2016 11:45 AM EDT 06/03/2016 1:57 PM EDT Narrative Resulting Agency Comment Spec In Lab Mario Alberto Escobedo MD LAB SEND OUT ORDERAB LES Performing Organization Address [facility] Co de Phone Number [facility] [place] [address] * TSH (06/03/2016 11:45 AM EDT) Thyroid Stimulating Hormone 2.18 0.27 - 4.20 mcIU/mL [facility] Blood specimen (specimen) 06/03/2016 11:45 AM EDT 06/03/2016 12:11 PM EDT Narrative Resulting Agency Comment Spec In Lab Mario Alberto Escobedo MD CHEMISTRY ORDERABLES Performing Organization Address [facility] Co de Phone Number [facility] [place] [address] * Homocysteine Total, Plasma (06/03/2016 11:45 AM EDT) Homocystine 9 <=15 mcmol/L [facility] Blood specimen (specimen) 06/03/2016 11:45 AM EDT 06/03/2016 12:11 PM EDT Narrative Resulting Agency Comment Spec In Lab Mario Alberto Escobedo MD CHEMISTRY ORDERABLES [facility] [place] [address] * Folate, serum (06/03/2016 11:45 AM EDT) Folate >20.0 4.8 - 24.2 ng/mL [facility] Blood specimen (specimen) 06/03/2016 11:45 AM EDT 06/03/2016 12:04 PM EDT Narrative Resulting Agency Comment Spec In Lab Mario Alberto Escobedo MD CHEMISTRY ORDERABLES Performing Organization Address City/[facility]/ZIP Co de Phone Number [facility] [place] [address] * (ABNORMAL) Sedimentation rate (06/03/2016 11:45 AM EDT) Sedimentation Rate Automated 41(H) 0 - 20 mm/hr [facility] Blood specimen (specimen) 06/03/2016 11:45 AM EDT 06/03/2016 12:04 PM EDT Narrative Resulting Agency Comment Spec In Lab Mario Alberto Escobedo MD HEMATOLOGY ORDERABLE S [facility] [place] [address] * Lactate Dehydrogenase (06/03/2016 11:45 AM EDT) Lactate Dehydrogenase 164 110 - 220 unit/L [facility] Blood specimen (specimen) 06/03/2016 11:45 AM EDT 06/03/2016 12:11 PM EDT Narrative Resulting Agency Comment Spec In Lab Mario Alberto Escobedo MD CHEMISTRY ORDERABLES [facility] [place] [address] * Comprehensive metabolic panel (non-fasting) (06/03/2016 11:45 AM EDT) Glucose 90 65 - 199 mg/dL [facility] Comment:Diabetes: >=200 mg/d L plus symptoms Blood Urea Nitrogen 11 8 - 18 mg/dL [facility] Creatinine 0.83 0.70 - 1.20 mg/dL [facility] Comment: Please note that the pediatric reference intervals supplied above were not validated at [facility]. Results from pediatric patients should [...] the following links into your internet browser. [email or web address] Blood specimen (specimen) 06/03/2016 11:45 AM EDT 06/03/2016 12:11 PM EDT Narrative Resulting Agency Comment Spec In Lab Mario Alberto Escobedo MD CHEMISTRY ORDERABLES [facility] [place] [address] documented in this encounter Visit Diagnoses Diagnosis [...] Hernandez) documented in this encounter Care Teams Information Lead Relationship Specialty Start Date End Date Deborah Quiroga APRN PCP - General Family Medicine 03/24/16 02/04/23 documented as of this encounter
--- OUTSIDE RECORDS SUMMARY | 2024-06-15 14:14 | XMS_ITS | Encounter Summary ---
Author Organization [facility] [place] [address] Care Team Providers Care In Shop Service Technician Name Role Phone Deborah Quiroga APRN Primary Care Provider +1 [phone] Encounter Details Date Type Department Care Team (Latest Contact Info) Description 07/10/2016 2:54 PM EST - 07/10/2016 11:59 PM EST Hospital [place] [phone] Discharge Disposition: Home Social History Tobacco Use [...] EST Office Visit Hematology [place] [address] Markel Borjas MD [facility] DR [place] [address] 11/02/2024 12:00 PM EDT Appointment [place] [phone] 11/02/2024 1:00 PM EDT Office [place] [address] Magdalena Peralta MD [facility] [place] [address] 03/01/2025 4:15 PM EDT Office Visit Dermatology at [address] [phone] Marek Bonilla MD [address], [place] [address] documented as of this encounter Procedures Procedure Name Priority Date/Time Associated Diagnosis Comments BONE MARROW FINAL REPORT Routine 07/10/2016 3:43 PM EST documented in this encounter Results * Bone Marrow Final Report (07/10/2016 3:43 PM EST) Final Diagnosis [id number] ?Location: OPW The signing pathologist has (i) examined the relevant preparation(s) for the specimen(s) and (ii) rendered or confirmed the diagnosis(es). . ? Bone Marrow Final DIAGNOSIS BONE MARROW (PERIPHERAL SMEAR, ASPIRATE SMEAR, TOUCH PREP, CLOT SECTION, CORE BIOPSY); [OSR# [id number], COLLECTED 06/23/2016, 19 SLIDES]: ?? 1. ??Normocellular [...] clonal lymphoproliferative or myeloproliferative ? disorder (OSR# [id number]) ?Chromosome analysis on the marrow aspirate revealed a normal female karyotype; ?46,XX[25] ??(OSR# [id number]) Electronically signed by: ??Elian Guillen MD Verified: [...] 3/uL Band/Seg 0.52 x103/uL; Lymph 0.75 x103/uL; [place] 0.15 x103/uL; Eos 0.01%; Baso 0.01 x10 [...] plasma cells represent 3-4% of the cellularity [place] ? Polytypic plasma cell staining, high background Lambda ?Polytypic plasma cell staining, high background Block: ? B2 (Core biopsy 2) Fixative: ?? Formalin ANTIBODY: ?? RESULT/COMMENT CD3 ? Scattered small lymphocytes and lymphoid aggregates highlighted CD20 ?Few scattered small lymphocytes stain ( ?? <CD3 in aggregates) CD138 ? Scattered plasma cells represent 3-4% of the cellularity [place] ? Polytypic plasma cell staining, high background Lambda ?Polytypic plasma cell staining, high background Note: The immunoperoxidase stains reported above were developed and their performance characteristics determined by [facility]. ??They have not been cleared [...] CONSULTATION CASE A - 19 slides labeled [id number], collection date 06/23/2016. [id number] Report to: [facility] Surgical Pathology Department [facility], [facility], 2nd Floor [address], [place] ??[address] 07/13/2016 11:38 AM EST [facility] Consult Case 07/10/2016 3:43 PM EST 07/10/2016 3:43 PM EST Nitesh Pina Jr., MD PATHOLOGY/CYTOLOGY O RDERABLES [facility] [place] [address] documented in this encounter Visit Diagnoses Not on filedocumented in this encounter Care Teams In Shop Service Technician Relationship Specialty Start Date End Date Deborah Quiroga APRN PCP - General Family Medicine 03/24/16 02/04/23 documented as of this encounter
--- OUTSIDE RECORDS SUMMARY | 2024-06-15 14:14 | XMS_ITS | Encounter Summary ---
[place] [address] Care Team Providers Care Car Worker Name Role Phone Ashley Quirogan Cornelius ANURAG Primary Care Provider +[phone]- [phone] Reason for Visit * Reason Onset Date Comments Medical Care Coordination 09/14/2016 Encounter Details Date Type Department Care Team (Late st Contact Info) Description 09/14/2016 Telephone [place] [phone] Alexandrea Greenwood RN Medical Care Coordination Social [...] and handicapper: Injection/Infusion Referral Call placed to [facility] Infusion Room Spoke charis Bragg. Services to be provided for pt are: Miles 09/16/16 Mah[facility] confirmed they would provide services to pt and would contact with appointment time. Pt aware to expect the phone call ??orders faxed to [phone]). documented in this encounter Plan of Treatment Upcoming Encounters Date Type Department Care Team (Late st Contact Info) Description 06/23/2024 2:00 PM EST Office Visit [place] [address] Markel Borjas MD [facility] DR [place] [address] 11/02/2024 12:00 PM EDT Appointment [place] [address] 11/02/2024 1:00 PM EDT Office Visit Rheumatology at [place] [address] Magdalena Peralta MD [facility] [place] [address] 03/01/2025 4:15 PM EDT Office Visit Dermatology at [place] [address] [place] [phone] Marek Bonilla MD [address], [place] [address] documented as of this encounter Visit Diagnoses Not on filedocumented in this encounter Care Teams Car Worker Relationship Specialty Start Date End Date Deborah Quiroga APRN PCP - General Family Medicine 03/24/16 02/04/23 documented as of this encounter
--- OUTSIDE RECORDS SUMMARY | 2024-06-15 14:14 | XMS_ITS | Encounter Summary ---
Author Organization [facility] [place] [address] Care Team Providers Care Federal Air Marshal Name Role Phone Ashley Quirogazac Shields APRN Primary Care Provider [phone] Encounter Details Date Type Department Care Team (Late st Contact Info) Description 07/31/2016 External Results Hematology and Oncology at [place] [phone] Alexandrea Greenwood RN Neutropenia, unspecified type Social [...] EST Office Visit Hematology [place] [address] Markel Borjas MD [facility] DR HEMATOLOGY [place] [address] 11/02/2024 12:00 PM EDT Appoint[place] [address] 11/02/2024 1:00 PM EDT Office Visit Rheumatology at [place] [phone] Magdalena Peralta MD [facility] [place] [address] 03/01/2025 4:15 PM EDT Office Visit Dermatology at [place] [address] [place] [address] Marek Bonilla MD [address], [place] [address] documented as of this encounter Procedures Procedure [...] type documented in this encounter Care Teams Federal Air Marshal Relationship Specialty Start Date End Date Deborah Quiroga APRN PCP - General Family Medicine 03/24/16 02/04/23 documented as of this encounter
--- OUTSIDE RECORDS SUMMARY | 2024-06-15 14:14 | XMS_ITS | Encounter Summary ---
Author Organization [facility] Address [facility] [place] [address] Care Team Providers Care Fur Blender Name Role Phone Ashley Quirogan Cornelius ANURAG Primary Care Provider [phone] Encounter Details Date Type Department Care Team (Late st Contact Info) Description 08/11/2016 Telephone Hematology [place] [phone] Markel Borjas MD [facility] DR HEMATOLOGY [place] [address] Social History Tobacco Use Types Packs/Day Years [...] Visit Hematology and Oncology at [place] [phone] Markel Borjas MD [facility] DR [place] [address] 11/02/2024 12:00 PM EDT Appointment [place] [address] 11/02/2024 1:00 PM EDT Office Visit Rheumatology at [place] [phone] Magdalena Peralta MD [facility] [place] [address] 03/01/2025 4:15 PM EDT Office Visit Dermatology at [place] [address] [place] [address] Marek Bonilla MD [address], [place] [address] documented as of this encounter Visit Diagnoses Not on filedocumented in this encounter Care Teams Fur Blender Relationship Specialty Start Date End Date Deborah Quiroga APRN PCP - General Family Medicine 03/24/16 02/04/23 documented as of this encounter
--- OUTSIDE RECORDS SUMMARY | 2024-06-15 14:14 | XMS_ITS | Encounter Summary ---
Author Organization [facility] [place] [address] Care Team Providers Care Poacher Wringer Operator Name Role Phone Ashley Quirogan Cornelius ANURAG Primary Care Provider [phone] Reason for Visit * Reason Onset Date Comments Pre Procedure Call 06/18/2016 Encounter Details Date Type Department Care Team (Late st Contact Info) Description 06/18/2016 Telephone Hematology [place] [address] Alexandrea Greenwood RN Pre Procedure [...] Office Visit Hematology [place] [phone] Markel Borjas MD [facility] [address] HEMATOLOGY [place] [address] 11/02/2024 12:00 PM EDT Appointment [place] [phone] 11/02/2024 1:00 PM EDT Office [place] [phone] Magdalena Peralta MD [facility] [place] [address] 03/01/2025 4:15 PM EDT Office Visit Dermatology at [place] [address] [place] [address] Marek Bonilla MD [address], [place] [address] documented as of this encounter Visit Diagnoses Not on filedocumented in this encounter Care Teams Poacher Wringer Operator Relationship Specialty Start Date End Date Deborah Quiroga APRN PCP - General Family Medicine 03/24/16 02/04/23 documented as of this encounter
--- OUTSIDE RECORDS SUMMARY | 2024-06-15 14:14 | XMS_ITS | Encounter Summary ---
Author Organization [facility] Address [facility] [place] [address] Care Team Providers Care Citizenship Teacher Name Role Phone Junaid Deborah Shields APRN Primary Care Provider [phone]- [phone] Encounter Details Date Type Department Care Team (Latest Contact Info) Description 06/19/2016 - 06/19/2016 11:59 PM EST Hospital Encounter Radiology Library at [facility] [place] [phone] Nitesh Pina Jr., MD [facility] [place] [address] Pain Discharge Disposition: Home Social History Tobacco [...] Office Visit Hematology [place] [phone] Markel Borjas MD [facility] DR [place] [address] 11/02/2024 12:00 PM EDT App[place] [address] 11/02/2024 1:00 PM EDT Office Visit Rheumatology at [place] [phone] Magdalena Peralta MD [facility] [place] [address] 03/01/2025 4:15 PM EDT Office Visit Dermatology at [place] [address] [facility] [address] [place] [address] Marek Bonilla MD [address], [place] [address] documented as of this encounter Procedures Procedure [...] Jr., MD IMG FILM LIBRARY ORD ERABLES [place] documented in this encounter Visit Diagnoses Diagnosis Pain Generalized pain documented in this encounter Care Teams Citizenship Teacher Relationship Specialty Start Date End Date Deborah Quiroga, ROAD PACKER OPERATOR PCP - General Family Medicine 03/24/16 02/04/23 documented as of this encounter
--- OUTSIDE RECORDS SUMMARY | 2024-06-15 14:14 | XMS_ITS | Encounter Summary ---
[place] [address] Care Team Providers Care Tabber Name Role Phone Junaid Deborah Shields APRN Primary Care Provider [phone] Reason for Visit * Auth/Cert Specialty Diagnoses / Procedures Referred By Crispin t Referred To Contact Diagnoses Aortic stenosis Procedures PRO REPLACE AORT VALV, PROSTH VALV @REPLACE AORTIC VALVE, OPEN, W\CPB, W\PROSTHETIC VALVE (WRVU 41.32) Referral ID Status Reason Start Date Expiration Date Visits Re quested Visits Authorized [id number] 1 1 Encounter Details Date Type Department Care Team (Late st Contact Info) Description 09/21/2016 7:25 AM EST Anesthesia Event [place] [address] Luis Enrique Quarles MD [facility] [place] [address] Henrik Cooper MD [facility] [place] [address] Anesthesia Record Procedure Summary Procedure Name Responsible [...] 0819 Sternotomy 0844 CV Bypass init 1009 Balancing Machine Operator 1014 An Clamp Remove 1031 [...] Tube 09/21/16 (#28 angled chest tube to Vista: left: pericardial); Left; 09/22/16; 1119 09/21/16 0000 by Toshia Alejandre RN 09/22/16 1119 by Vero Bonilla RN Chest Tube 09/21/16 (#28 straig ht chest tube to [place]; right: mediastinal'); Right; mediastinum; 09/22/16; 1118 09/21/16 0000 by Toshia Alejandre RN 09/22/16 1118 by Vero Bonilla RN (RETIRED) Peripheral IV Line - Single Lumen 09/21/16; 0648; metacarpal vein (top of hand), left; hsqs-lca-mlhzks catheter system; 20 gauge; valdo Arteaga; 09/23/16; [...] Cooper MD - 09/21/2016 6:50 PM EST [facility] Department of Anesthesiology Post-procedure Note Patient: Purnima Thacker Procedure Summary Date Anesthesia Start Anesthesia Stop Room / Location 09/21/16 07 1152 [facility] OR 16 / [facility] MAIN OR Procedure Diagnosis Surgeon Responsible Provider @REPLACE AORTIC VALVE, OPEN, W\CPB, W\PROSTHETIC VALVE (WRVU 41.32) (N/A Chest); @AORTOPLASTY FOR SUPRAVALVULAR STENOSIS (WRVU 29.33) (N/A Chest) () Alirio Francisco MD Clark, Jeffrey A, MD All Anesthesia Providers: Anesthesiologist: Luis Enrique Quarles MD Rolled Materials Worker: Henrik Cooper MD Last (1hr) Vitals: BP Temp 36.1 ??C (97 ??F) (09/21/16 1800) Pulse 79 (09/21/16 1800) Resp 11 (09/21/16 1800) SpO2 98 % (09/21/16 1800) Patient Location: [facility] Level of Consciousness: Sedated (Pharmacologic/Intentional) Pain [...] EST Office Visit [place] [phone] Markel Borjas MD [facility] DR [place] [address] 11/02/2024 12:00 PM EDT [place] [phone] 11/02/2024 1:00 PM EDT Office [place] [address] Magdalena Peralta MD [facility] [place] [address] 03/01/2025 4:15 PM EDT Office Visit Dermatology at [place] [address] [place] [address] Marek Bonilla MD [address], [place] [address] documented as of this encounter Visit Diagnoses [...] mg documented in this encounter Care Teams Tabber Relationship Specialty Start Date End Date Deborah Quiroga, ELEMENTARY SCHOOL MUSIC TEACHER PCP - General Family Medicine 03/24/16 02/04/23 documented as of this encounter
--- OUTSIDE RECORDS SUMMARY | 2024-06-15 14:14 | XMS_ITS | Encounter Summary ---
Author Organization [facility] [place] [address] Care Team Providers Care Corn Sheller Operator Name Role Phone Ashley Quirogazac Shields APRN Primary Care Provider [phone] [phone] Encounter Details Date Type Department Care Team (Late st Contact Info) Description 08/04/2016 External Results Hematology and Oncology at [place] [phone] Alexandrea Greenwood RN Neutropenia, unspecified type Social [...] Office Visit Hematology [place] [address] Markel Borjas MD [facility] [address] HEMATOLOGY [place] [address] 11/02/2024 12:00 PM EDT Appointment [place] [address] 11/02/2024 1:00 PM EDT Office Visit Rheumatology at [place] [phone] Magdalena Peralta MD [facility] [place] [address] 03/01/2025 4:15 PM EDT Office Visit Dermatology at [place] [address] [place] [address] Marek Bonilla MD [address], [place] [address] documented as of this encounter Procedures Procedure [...] documented in this encounter Care Teams Corn Sheller Operator Relationship Specialty Start Date End Date Deborah Quiroga APRN PCP - General Family Medicine 03/24/16 02/04/23 documented as of this encounter
--- OUTSIDE RECORDS SUMMARY | 2024-06-15 14:14 | XMS_ITS | Encounter Summary ---
Author Organization [facility] Address [facility] Erika [facility] [place] [address] Care Team Providers Care Medical Claims Examiner Name Role Phone Ashley Quirogazac Shields APRN Primary Care Provider [phone]- [phone] Encounter Details Date Type Department Care Team (Late st Contact Info) Description 07/03/2016 External Results Hematology [place] [address] Matthew Cervantes, DO [address] [place] [address] Social History Tobacco Use Types Packs/Day Years [...] EST Office Visit Hematology [place] [address] Markel Borjas MD [facility] DR [place] [address] 11/02/2024 12:00 PM EDT Appointment [place] [address] 11/02/2024 1:00 PM EDT Office [place] [address] Magdalena Peralta MD [facility] [place] [address] 03/01/2025 4:15 PM EDT Office Visit Dermatology at [place] [address] [place] [address] Marek Bonilla MD [address], [place] [address] documented as of this encounter Procedures Procedure Name Priority Date/Time Associated Diagnosis Comments BONE MARROW ASPIRATION PERFO RMED WITH BONE MARRROW BIOPSY Routine 06/28/2016 documented in this encounter Results * BONE MARROW ASPIRATION PREFORMED WITH BONE MARRROW BIOPSY (06/28/2016) Matthew Cervantes DO [facility]AL [facility]GI [facility] ORDERABLES documented in this encounter Visit Diagnoses Not on filedocumented in this encounter Care Teams Medical Claims Examiner Relationship Specialty Start Date End Date Deborah Quiroga APRN PCP - General Family Medicine 03/24/16 02/04/23 documented as of this encounter
--- OUTSIDE RECORDS SUMMARY | 2024-06-15 14:14 | XMS_ITS | Encounter Summary ---
Author Organization [facility] Address [facility] [place] [address] Care Team Providers Care Roving Machine Operator Name Role Phone Ashley Quirogazac Shields APRN Primary Care Provider [phone] Encounter Details Date Type Department Care Team (Late st Contact Info) Description 08/18/2016 Orders Only Cardiac Surgery at [place] [phone] Alirio Esparza MD Aortic valve stenosis, unspecified [...] Visit Hematology and Oncology at [place] [phone] Markel Borjas MD [facility] DR HEMATOLOGY [place] [address] 11/02/2024 12:00 PM EDT Appointment Pulmonology at [place] [phone] 11/02/2024 1:00 PM EDT Office Visit Rheumatology at [place] [phone] Magdalena Peralta MD [facility] [place] [address] 03/01/2025 4:15 PM EDT Office Visit Dermatology at [place] [address] [place] [address] Marek Bonilla MD [address], QU[place] A DERMATOLOGY [place], [place] [address] documented as of this encounter Results * [...] supplied above were not validated at [facility]. Results from [...] the following links into your internet browser. [email or web address] Blood specimen (specimen) 08/18/2016 4:50 PM EST 08/18/2016 5:03 PM EST Narrative Resulting Agency Comment Spec In Lab Alirio Esparza MD CHEMISTRY ORDERABLE S [facility] [place] [phone] documented in this encounter Visit Diagnoses Diagnosis Aortic valve stenosis, unspecified etiology documented in this encounter Care Teams Roving Machine Operator Relationship Specialty Start Date End Date Deborah Quiroga APRN PCP - General Family Medicine 03/24/16 02/04/23 documented as of this encounter
--- OUTSIDE RECORDS SUMMARY | 2024-06-15 14:14 | XMS_ITS | Encounter Summary ---
Author Organization [facility] Address [facility] [place] [address] Care Team Providers Care Provider Relations Specialist Name Role Phone Ashley Quirogan Cornelius ANURAG Primary Care Provider +1- [phone] Encounter Details Date Type Department Care Team (Late st Contact Info) Description 06/09/2016 Orders Only Hematology [place] [address] Nitesh Pina Jr., MD [facility] [address] [place] [address] Cyclical neutropenia Social History Tobacco Use Types [...] EST Office Visit Hematology [place] [address] Markel Borjas MD [facility] [address] [place] [address] 11/02/2024 12:00 PM EDT Appointment [place] [address] 11/02/2024 1:00 PM EDT Office Visit [place] [address] Magdalena Peralta MD [facility] [place] [address] 03/01/2025 4:15 PM EDT Office Visit Dermatology at [place] [address] [place] [address] Marek Bonilla MD [address], [place] [address] documented as of this encounter Results * Immunophenotyping Flow Cytometry (06/09/2016 4:53 PM EST) Immunophenotyping Flow See Comment [facility] Comment: When completed by the Pathologist, the Flow Cytometry Report ([id number]) will display under the Pathology Results section within eD. Specimen of unknown material (specimen) 06/09/2016 4:53 PM EST 06/09/2016 5:00 PM EST Narrative Resulting Agency Comment Spec In Lab Nitesh Pina Jr., MD HEMATOLOGY ORDERABLE S [facility] [place] [address] documented in this encounter Visit Diagnoses Diagnosis Cyclical neutropenia Cyclic neutropenia documented in this encounter Care Teams Provider Relations Specialist Relationship Specialty Start Date End Date Deborah Quiroga APRN PCP - General Family Medicine 03/24/16 02/04/23 documented as of this encounter
--- OUTSIDE RECORDS SUMMARY | 2024-06-15 14:14 | XMS_ITS | Encounter Summary ---
Author Organization [facility] [place] [address] Care Team Providers Care Transfusion Nurse Name Role Phone Deborah Quiroga APRN Primary Care Provider [phone] [phone] Encounter Details Date Type Department Care Team (Late st Contact Info) Description 08/18/2016 4:20 PM EST Clinical Support Same Day at [facility] [place] [address] Social History Tobacco Use Types Packs/Day Years [...] EST Office Visit Hematology [place] [address] Markel Borjas MD [facility] [address] [place] [address] 11/02/2024 12:00 PM EDT Appointment Pulmonology at [place] [address] 11/02/2024 1:00 PM EDT Office Visit Rheumatology at [place] [phone] Magdalena Peralta MD [facility] [place] [address] 03/01/2025 4:15 PM EDT Office Visit Dermatology at [address] [address] Marek Bonilla MD [address] [place] [address] documented as of this encounter Visit Diagnoses Not on filedocumented in this encounter Care Teams Transfusion Nurse Relationship Specialty Start Date End Date Deborah Quiroga APRN PCP - General Family Medicine 03/24/16 02/04/23 documented as of this encounter
--- OUTSIDE RECORDS SUMMARY | 2024-06-15 14:14 | XMS_ITS | Encounter Summary ---
[place] [address] Care Team Providers Care Access Rep Name Role Phone Deborah Quiroga ANURAG Primary Care Provider [phone]- [phone] Reason for Visit * Reason Onset Date Comments Medical Care Coordination 07/17/2016 Encounter Details Date Type Department Care Team ([facility] Contact Info) Description 07/17/2016 Telephone Hematology [place] [phone] Alexandrea Greenwood RN Medical Care Coordination Social [...] 07/17/2016 12:07 PM EST Message received from law secretary: Injection/Infusion Referral Call placed to [phone]). Spoke w/ Pasquale. Services to be provided for pt are: Labs @ 10am ([facility]) & Neulasta @ 11am on 07/20/16, CBC only on 07/30/16 Pasquale confirmed they would provide services to pt and [place] [facility] [place] for appt info. Pt demographics, office note, med list and orders faxed to [facility] & [facility] documented in this encounter Plan of Treatment Upcoming Encounters Date Type Department Care Team (Late st Contact Info) Description 06/23/2024 2:00 PM EST Office Visit Hematology [place] [address] Markel Borjas MD [facility] [address] HEMATOLOGY [place] [address] 11/02/2024 12:00 PM EDT Appointment [place] [phone] 11/02/2024 1:00 PM EDT Office [place] [phone] Magdalena Peralta MD [facility] [address] [place] [address] 03/01/2025 4:15 PM EDT Office Visit Dermatology at [place] [address] [phone] Marek Bonilla MD [address], [place] [address] documented as of this encounter Visit Diagnoses Not on filedocumented in this encounter Care Teams Access Rep Relationship Specialty Start Date End Date Deborah Quiroga APRN PCP - General Family Medicine 03/24/16 02/04/23 documented as of this encounter
--- OUTSIDE RECORDS SUMMARY | 2024-06-15 14:14 | XMS_ITS | Encounter Summary ---
[place] [address] Care Team Providers Care Clinical Cytopathologist Name Role Phone Deborah Quiroga APRN Primary Care Provider [phone]- [phone] Reason for Visit * Reason Onset Date Comments Prior Authorization 09/11/2016 Neulasta Encounter Details Date Type Department Care Team (Late st Contact Info) Description 09/11/2016 Telephone Hematology [place] [phone] Monica Wick Prior Authorization (Neulasta ) Social [...] AM EST Prior Auth for Neulasta (Approved) [facility] is a covered facility under the members plan. ID# [id number] Call placed to [phone] Rationale: Can you please start a PA for this pt to receive as outpatient at [facility] on 09/16/16? 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 ??Her last ANC was 0.56 (or 560) on 08/04/16. ??This will need to be approved through her medical as out patient. J code for neulasta. ?? [id number]. Spoke w/ Anna Marie Call Reference [id number] Copay: $ Deductible is not met, patient will have out of pocket costs until deductible is met. documented in this encounter Plan of Treatment Upcoming Encounters Date Type Department Care Team (Late st Contact Info) Description 06/23/2024 2:00 PM EST Office Visit Hematology and Oncology at [place] [phone] Markel Borjas MD [facility] [address] [place] [address] 11/02/2024 12:00 PM EDT Appointment Pulmonology at [address] 11/02/2024 1:00 PM EDT Office Visit Rheumatology at [place] [phone] Magdalena Peralta MD [facility] [place] [address] 03/01/2025 4:15 PM EDT Office Visit Dermatology at [address] [place] [phone] Marek Bonilla MD [address], [place] [address] documented as of this encounter Visit Diagnoses Not on filedocumented in this encounter Care Teams Clinical Cytopathologist Relationship Specialty Start Date End Date Deborah Quiroga APRN PCP - General Family Medicine 03/24/16 02/04/23 documented as of this encounter
--- OUTSIDE RECORDS SUMMARY | 2024-06-15 14:14 | XMS_ITS | Encounter Summary ---
Author Organization [facility] [place] [address] Care Team Providers Care Magnetizer Name Role Phone Ashley Quirogazac Shields APRN Primary Care Provider [phone] Encounter Details Date Type Department Care Team (Late st Contact Info) Description 07/31/2016 Orders Only Hematology and Oncology at [place] [phone] Alexandrea Greenwood RN Neutropenia, unspecified type Social [...] EST Office Visit Hematology [place] [address] Markel Borjas MD [facility] [address] [place]AT[place] [address] 11/02/2024 12:00 PM EDT Appointment [place] [address] 11/02/2024 1:00 PM EDT Office Visit Rheumatology at [place] [phone] Magdalena Peralta MD [facility] [place] [address] 03/01/2025 4:15 PM EDT Office Visit Dermatology at [place] [address] [place] [address] Marek Bonilla MD [address], [place] [address] documented as of this encounter [...] type documented in this encounter Care Teams Magnetizer Relationship Specialty Start Date End Date Deborah Quiroga APRN PCP - General Family Medicine 03/24/16 02/04/23 documented as of this encounter
--- OUTSIDE RECORDS SUMMARY | 2024-06-15 14:14 | XMS_ITS | Encounter Summary ---
Author Organization [facility] [place] [address] Care Team Providers Care Maintenance Parts Technician Name Role Phone Junaid, Deborah Shields APRN Primary Care Provider [phone] Encounter Details Date Type Department Care Team (Late st Contact Info) Description 07/13/2016 External Results [place] [address] Provider, Scanning Social History Tobacco [...] EST Office Visit Hematology and Oncology at [place] [phone] Markel Borjas MD [facility] [address] [place] [address] 11/02/2024 12:00 PM EDT Appointment [place] [address] 11/02/2024 1:00 PM EDT Office Visit Rheumatology at [place] [phone] Magdalena Peralta MD [facility] [place] [address] 03/01/2025 4:15 PM EDT Office Visit Dermatology at [place] [address] [place] [phone] Marek Bonilla MD [address], [place] [address] documented as of this encounter Procedures Procedure Name Priority Date/Time Associated Diagnosis Comments SURGICAL PATHOLOGY SCAN Routine 07/13/2016 documented in this encounter Results * Scan Doc: Surgical Pathology (07/13/2016) Nitesh Pina Jr., MD MEDIA MGR SCAN EXT O RDR/RSLT documented in this encounter Visit Diagnoses Not on filedocumented in this encounter Care Teams Maintenance Parts Technician Relationship Specialty Start Date End Date Deborah Quiroga APRN PCP - General Family Medicine 03/24/16 02/04/23 documented as of this encounter
--- OUTSIDE RECORDS SUMMARY | 2024-06-15 14:14 | XMS_ITS | Encounter Summary ---
[place] [address] Care Team Providers Care Telegraphic Typewriter Installer Name Role Phone Junaid Deborah Shields APRN Primary Care Provider [phone] Reason for Visit * Auth/Cert Specialty Diagnoses / Procedures Referred By Crispin t Referred To Contact Diagnoses Aortic stenosis Procedures PRO REPLACE AORT VALV, PROSTH VALV @REPLACE AORTIC VALVE, OPEN, W\CPB, W\PROSTHETIC VALVE (WRVU 41.32) Referral ID Status Reason Start Date Expiration Date Visits Re quested Visits Authorized [id number] 1 1 Encounter Details Date Type Department Care Team (Late st Contact Info) Description 09/21/2016 7:30 AM EST - 09/21/2016 12:04 PM EST Surgery [place] [address] Alirio Esparza MD @REPLACE AORTIC VALVE, OPEN, [...] Patient Age: 61 y.o. Birthdate: 1955 Language: German Race: White Ethnicity: Not nor Admit Date: 09/21/2016 Discharge Date: 09/25/2016 Attending Physician: Alirio Esparza MD Follow-up Recommendations for Providers: Please continue routine management of cardiovascular risk factors including blood pressure, lipids,glucose, etc. Please note any changes to medications. Patient to follow-up with PCP, Deborah Quiroga APRN, in 1-2 weeks. Patient to follow-up with Wardrobe Custodian, Dr. Antelmo Burrell, in two weeks. Patient to follow-up with Cardiac Surgery, Dr. Alirio Esparza, to be scheduled for before 10/19/2016, with CXR, EKG, and Echo. Inpatient Provider Contact Information: [facility] Section of Cardiac Surgery [facility] [address] FAX [phone] Discharge Diagnoses (Hospital Problems) Primary Diagnoses: Secondary [...] Hospital Course: Purnima Thacker was admitted to [facility] on 09/21/2016 via the [...] Alirio Esparza and/or the Cardiac Surgery Physician [employer] Product Consultant Team may be reached at . [...] to your dentist. Please refer to the [place] [employer] Association [...] Dr. Alirio Jones. You may use a [place] Track or treadmill but avoid any [...] friends, go to a movie, go to restoration, etc. Heavy activities: No hunting, skiing, jogging, [...] low fat, low cholesterol, [place] [employer] Diet. Driving: No driving until [...] the outpatient Phase 2 Cardiac Rehabilitation at [facility]. The patient agrees to a referral to this program. The referral will be sent at discharge and the patient should be contacted by the program within 1- 2 weeks from discharge. Future Appointments and Orders Future Appointments Provider Department Dept Phone 11/20/2016 11:30 AM Markel Borjas MD [facility] [phone] Future Orders Complete By Expires Echocardiogram Transthoracic([facility]) [[id number] Custom] 10/18/2016 (Approximate) 09/18/2017 Process Instructions: If the Echocardiogram is to be PERFORMED in a DH location other than [facility]--STOP and order [id number], Echocardiogram South/External. Scheduling Instructions: Questions: Is a Bubble Study requested?: No Does the patient have Congenital Heart Disease?: No Does patient require sedation?: None GA rationale: Should this service be billed to the research sponsor?: EKG 12 Lead [EKG1 Custom] 10/18/2016 (Approximate) 09/25/2017 Process Instructions: Scheduling Instructions: Questions: Which DH location will this be performed?: [facility] Is a rhythm strip needed?: No If EKG Reason is Pre-op Evaluation, indicate diagnosis for surgery.: Should this service be billed to the research sponsor?: XR Chest PA & Lateral (Generic) [[id number] Custom] 10/18/2016 (Approximate) 09/25/2017 Process Instructions: Scheduling Instructions: Questions: Where will study be performed?: [facility]- Radiology Portable exam?: No Reason for exam and clinical history: s/p AVReplacement, patch annuloplasty 1 month f/u Other pertinent information: Stat read required?: Date of injury if applicable: Requested Time: Referral to Cardiac Rehab [[id number] Custom] As directed Process Instructions: If no progress note charted, please enter Clinical details in comments. Scheduling Instructions: Questions: My question or request is: s/p AVR. Cardiac rehab at [facility] Referral to Home Health - at DISCHARGE [HXS3530 CPT(R)] As directed Process Instructions: Scheduling Instructions: Comments: DOCUMENTATION FOR VNA SERVICES (INCLUDING THOSE PATIENTS WITH MEDICARE COVERAGE REQUIRING HOME VNA SERVICES AND/OR HOSPICE SERVICES) PATIENT'S LOCATION: Purnimakary Gallego[address] [address] (home) No relevant phone numbers on file. Magazine Feeder's Name: self In discussion with the attending physician, it is certified that this patient is under their care and that they, or a Nurse Practitioner, or Physician [employer] Product Consultant who is working directly with them, [...] for services as follows: HOME HEALTH AGENCY: [facility] PHONE: [phone] FAX: [phone] RN orders: Cardiopulmonary assessment, incisional assessment, assess [...] issues please call the Cardiac SurgeryOffice at [phone] FOR MEDICARE ONLY: In discussion with the [...] 09/30/16 Signed: Crispin Aranda PA-C 09/25/2016 [facility] Section of Cardiac Surgery [facility] [address] FAX [phone] Date: 09/25/2016 CC: ANURAG Alford Caryn E, APRN [address] [place] [address] documented in this encounter Discharge Instructions * [...] Alirio Esparza and/or the Cardiac Surgery Physician [employer] Product Consultant Team may be reached at . [...] to your dentist. Please refer to the [place] Heart Association [...] Dr. Alirio Jones. You may use a [place] Track or treadmill but avoid any [...] friends, go to a movie, go to restoration, etc. Heavy activities: No hunting, skiing, jogging, [...] low fat, low cholesterol, [place] [employer] Diet. Driving: No driving until [...] the outpatient Phase 2 Cardiac Rehabilitation at [facility]. The patient agrees to a [...] PM EST Cardiac Surgery Progress Note: ID: [id number] S/p AVR, patch aortoplasty POD#2. PMH of [...] Gas) No results found for: PHART, PO2ART, QTU7HAH Assessment/Plan: TPW out this am. (+) BM. [...] Signed: Crispin Aranda PA-C 09/24/2016 Team pager: [phone]; [phone] after 5pm [facility] Section of Cardiac Surgery * Leonor Henson S, HEALTH POLICY ANALYST - 09/23/2016 10:48 AM EST Cardiac Surgery Progress Note: ID: [id number] s/p AVR, patch aortoplasty POD#2. PMH of [...] Gas) No results found for: PHART, PO2ART, BEK9IPT Assessment/Plan: s/p AVR, patch aortoplasty POD#2. PMH of Neutropenia, HLD, HTN, Depression, obesity, . Transferred from [facility] yesterday and doing well. Pathway. [...] Surgeon on rounds. Signed: Leonor Henson APRN [facility] Section of Cardiac Surgery Date: 09/23/2016 * Nico Palacios PA - 09/22/2016 9:56 AM EST Cardiac Surgery Progress Note: ID: [id number] s/p AVR, patch aortoplasty POD#1. PMH of [...] NT, ND, soft. Ext: Moves all extremities. [place], well perfused. Incisions: C/D/I Tubes/Lines/Drains: PIV, [...] Attending Surgeon on rounds. Signed: EKATERINA KIM [facility] Section of Cardiac Surgery [...] left pleural effusion. T/L/D Al ETT CVL [place] CT Pacing wires ASSESSMENT, MANAGEMENT, and DECISION [...] Outcome (s) achieved Date Met: 09/25/16 09/25/16 4799 Coping/Psychosocial Plan Of Care Reviewed With patient [...] services Lalitha Cohen [facility] Pager: [phone] Inpatient Physical Therapy Patient status, treatment interventions, and goals discussed with student. I am in agreement with all details and associated flowsheet rows as documented and was present for all aspects of the patient treatment session. Nery Jaramillo, CANDY Pager [phone] Problem: Acute Rehab Services Goal & Intervention Plan Goal: Bed Mobility Goal Stand Alone Therapy Goal Outcome: Ongoing (Interventions Implemented as Appropriate) 09/22/16 1611 09/25/16 0947 Bed Mobility Goal Bed Mobility Goal, Time to Achieve 4 days -- Bed Mobility Goal, Activity Type scoot/bridge;supine to sit/sit to supine -- Bed Mobility Goal, [place] Level independent -- Bed Mobility Goal, Additional [...] Achieve 4 days -- Gait Training Goal, [place] Level independent -- Gait Training Goal, Distance [...] assist, home with home health [facility]itha Cohen [facility] Pager: [phone] Inpatient Physical Therapy Patient status, treatment interventions, and goals discussed with student. I am in agreement with all details and associated flowsheet rows as documented and was present for all aspects of the patient treatment session. Nery Jaramillo, TRIMMER TAILER Pager [phone] Problem: Acute Rehab Services Goal & Intervention Plan Goal: Bed Mobility Goal Stand Alone Therapy Goal Outcome: Ongoing (Interventions Implemented as Appropriate) 09/22/16161009/23/161411 Bed Mobility Goal Bed Mobility Goal, Time to Achieve 4 days -- Bed Mobility Goal, Activity Type scoot/bridge;supine to sit/sit to supine -- Bed Mobility Goal, [place] Level independent -- Bed Mobility Goal, Additional [...] Achieve 4 days -- Gait Training Goal, [place] Level independent -- Gait Training Goal, Distance [...] days -- Transfer Training Goal, Activity Type rme-mw-wtumy/yvuxv-vj-ngu;mmc-la-mlcrt/mkmio-cw-cbl -- Transfer Train Goal, [place] Level independent -- Transfer Training Goal, Additional Goal abides sternal precautions -- Transfer Training Goal, Outcome -- goal met * Consult Note - Jana Crenshaw RN - 09/23/2016 9:41 AM EST [facility] CARDIAC REHABILITATION Purnima Thacker was seen today regarding participation in the outpatient Phase 2 Cardiac Rehabilitation at [facility]. The patient agrees to a [...] Another Service: (cardiac rehab) NICOLE HERNANDEZ, PT Pager:[phone] Inpatient Physical Therapy Problem: Acute Rehab Services Goal & Intervention Plan Goal: Bed Mobility Goal Stand Alone Therapy Goal Outcome: Ongoing (Interventions Implemented as Appropriate) 09/22/161610 Bed Mobility Goal Bed Mobility Goal, Time to Achieve 4 days Bed Mobility Goal, Activity Type scoot/bridge;supine to sit/sit to supine Bed Mobility Goal, [place] Level independent Bed Mobility Goal, Additional Goal able to abide sternal precautions during transfers Goal: Gait Training Goal Stand Alone Therapy Goal Outcome: Ongoing (Interventions Implemented as Appropriate) 09/22/161610 Gait Training Goal Gait Training Goal, Date Established 09/22/16 Gait Training Goal, Time to Achieve 4 days Gait Training Goal, [place] Level independent Gait Training Goal, Distance to Achieve ascend and descends 2 steps independently Goal: Goal Transfer Training Stand Alone Therapy Goal Outcome: Ongoing (Interventions Implemented as Appropriate) 09/22/161610 Goal Transfer Training Transfer Training Goal, Time to Achieve 4 days Transfer Training Goal, Activity Type vmr-bm-wjiyg/ywpki-og-jmk;ueu-po-kxydf/uqykx-rs-irm Transfer Train Goal, [place] Level independent Transfer Training Goal, Additional Goal [...] of completing AD's at home, chooses her nkdcmo-os-pcs, Martha Thacker (home) for her DPOAH, 2nd choice in friend, Nitesh Rad, [place], [place] Current Coping/Education/Information Needs: patient sitting up [...] close by, Rashad & Raymond, and her wstuve-cc-esw Martha Thacker who she has chosen to be her DPOAH. Also has a friend Nitesh Leryo who lives in [place], [place], also her DPOAH choice. Behavioral Health History: none on file in e[facility] Substance Use/Abuse: none on file in [facility] Other Pertinent/Service Specific Information: none Health/Prescription Coverage: Primary Insurance: [employer] Secondary Insurance: none Prescription Coverage: yes, per patient no issues Preferred Pharmacy: ?? Other: none Primary Care Provider: Deborah Quiroga, HEALTH POLICY ANALYST [phone] Patient/Caregiver Goals of Treatment: per medical team recommendations at discharge for CT surgery Potential Needs for Transition of Care: Rehab/SNF: TBD Home Health: TBD DME: no Dialysis: no Community Resources: non3 Transportation: ride home with a friend Other: none Anticipated Barriers to Discharge/Special Considerations: none anticipated at this time Plan: patient will need VNA services at discharge. The patient/representative phlebotomy services has been provided a list of Home Health Agencies/DME vendors which servetheir preferred geographic area. A letter describing our affiliations was reviewed with them and they were educated about their right to choose where referrals are placed. Patient requests referral to: [facility] [employer]. PHONE: [phone] FAX: [phone] Expected date of discharge: Fri/Sat? CM called VNA to confirm referral, talked with VALDO Bunn/intake who stated she was familiar w/patient & would monitor her progress through curaspan. Referral routed to the Poultry Hanger for matching with agency/vendor and to provide any required information. A member of the Care Management team will continue to monitor progress, follow for continuity of care and assist with transition of care planning. Amanda Moreno RN Pager: [phone] * Op Note - Alirio Esparza MD - 09/21/2016 12:53 PM EST 09/23/2016 Purnima Thacker 1955 [id number] Preoperative Diagnosis: Symptomatic aortic stenosis Postoperative Diagnosis: Symptomatic aortic stenosis Procedure: Aortic valve replacement: Bovine Pericardial 25 mm Surgeon: Alirio Esparza M.D. [employer] Product Consultant: Philip BALL Anesthesia: General endotracheal anesthesia [...] applied. The patient was transported to the [facility] on levo. All counts were [...] Operative Note Patient Name: Purnima Thacker : [id number] MR#: [id number] Case Date: 09/21/2016 Surgeon: Surgeon(s) and Role: * Alirio Esparza MD - Primary * Nico Palacios PA - Physician [employer] Product Consultant Preoperative diagnosis: Postoperative diagnosis: Procedure(s) (LRB): [...] Visit Hematology [place] [address] Markel Borjas MD [facility] [address] [place] [address] 11/02/2024 12:00 PM EDT Appointment [place] [address] 11/02/2024 1:00 PM EDT Office [place] [phone] Magdalena Peralta MD [facility] [place] [address] 03/01/2025 4:15 PM EDT Office Visit Dermatology at [address] [place] [phone] Marek Bonilla MD [address], [place] [address] Scheduled Orders Name Type Priority Associated Diagnoses [...] IMPLANTABLE DEVICES SCAN 09/26/2016 12:00 AM EST ELECTRONIC COILS SUPERVISOR SCAN 09/26/2016 12:00 AM EST POTASSIUM [...] Routine 09/22/2016 4:00 AM EST CARDIAC ENZYMES ([facility]) Routine 09/22/2016 4:00 AM EST CREATININE Routine [...] SCAN EXT O RDR/RSLT * SCAN DOC: ELECTRONIC COILS SUPERVISOR (09/26/2016 12:00 AM EST) Anatomical Region Laterality Modality Other Narrative 09/26/2016 12:00 AM EST Ordered by an unspecified provider. Scanning Provider MEDIA MGR SCAN EXT O RDR/RSLT * Potassium (09/25/2016 4:32 AM EST) Pathologist [facility] Potassium 4.4 3.5 - 5.0 mmol/L [facility] [...] MD CHEMISTRY ORDERABLE S [facility] [place] [address] * (ABNORMAL) Differential, Automated (09/24/2016 9:56 AM EST) Pathologist [facility] Neutrophil % 76.8 % [facility] Neutrophil Absolute 7.79(H) 1.70 - 6.10 x10(3)/mc L [facility] Lymph % 11.1 % [facility] Lymphocytes Abs 1.1 0.9 - 3.2 x10(3)/mc L [facility] Monocyte % 8.5 % [facility] Monocyte Abs 0.9 0.3 - 0.9 x10(3)/mc L [facility] Eos % 0.5 % [facility] Eosinophils Abs 0.0 0.0 - 0.4 x10(3)/mc L [facility] Basophil % 0.2 % [facility] [...] Co de Phone Number [facility] [place] [address] * (ABNORMAL) Hemogram (09/24/2016 9:56 AM EST) White Blood Cell 10.1(H) 4.0 - 9.5 x10(3)/ L [facility] Red Blood Cell [...] Platelet 141(L) 145 - 357 x10(3)/ L [facility] RDW Standard Deviation 45.0 37.0 - 46.0 fL [facility] RDW coefficient of variation 12.6 11.5 - 14.1 % [facility] Mean Platelet Volume 9.4 7.6 - 12.9 fL [facility] NRBC% auto 1.1 % [facility] NRBC Absolute 0.110(H) 0.000 - 0.000 x10(3)/mc L [facility] Blood specimen (specimen) 09/24/2016 9:56 AM EST 09/24/2016 10:04 AM EST Narrative Resulting Agency Comment Spec In Lab Alirio Esparza MD HEMATOLOGY ORDERABL ES [facility] [place] [address] * (ABNORMAL) Basic Metabolic Panel (non-fasting) (09/24/2016 [...] were not validated at [facility]. Results from pediatric patients should be interpreted [...] the following links into your internet browser. [email or web address] Blood specimen (specimen) 09/24/2016 9:56 AM EST 09/24/2016 10:04 AM EST Narrative Resulting Agency Comment Spec In Lab Alirio Esparza MD CHEMISTRY ORDERABLE S [facility] [place] [address] * XR Chest PA & Lateral (Generic) [...] [facility]/ZIP Co de Phone Number [facility] [place] [address] * POCT Glucose (09/22/2016 8:17 AM EST) Glucose, POC 131 65 - 199 mg/dL [facility] Comment: Supplemental ranges: <140 mg/dL before meals <180 mg/dL all other times of the day Blood specimen (specimen) 09/22/2016 8:17 AM EST 09/22/2016 8:17 AM EST Alirio Esparza MD POINT OF CARE TEST ORDERABLES [facility] [place] [address] * POCT Glucose (09/22/2016 4:01 AM EST) Glucose, POC 135 65 - 199 mg/dL [facility] Comment: Supplemental ranges: <140 mg/dL before meals <180 mg/dL all other times of the day Blood specimen (specimen) 09/22/2016 4:01 AM EST 09/22/2016 4:01 AM EST Alirio Esparza MD POINT OF CARE TEST ORDERABLES Performing Organization Address [facility] Co de Phone Number [facility] [place] [address] * Scan, Peripheral Blood (09/22/2016 4:00 AM EST) Plat estimate Normal [facility] RBC Morphology Abnormal [facility] Macrocyte 1-5 /HPF [facility] Plat, Giant Less than 1 /HPF [facility] Blood specimen (specimen) 09/22/2016 4:00 AM EST 09/22/2016 4:34 AM EST Narrative Resulting Agency Comment Spec In Lab Alirio Esparza MD HEMATOLOGY ORDERABL ES Performing Organization Address [facility] Phone Number [facility] [place] [address] * Electrolytes panel (09/22/2016 4:00 AM EST) Sodium 145 135 - 145 mmol/L [facility] [...] ORDERABLE S Performing Organization Address [facility]/[place]IP [place] [address] * (ABNORMAL) Differential, Automated (09/22/2016 4:00 AM EST) Pathologist [facility] Neutrophil % 70.9 % [facility] Neutrophil Absolute 5.33 1.70 - 6.10 x10(3)/ L [facility] Lymph % 9.1 % [facility] Lymphocytes Abs 0.7(L) 0.9 - 3.2 x10(3)/ L [facility] Monocyte % 18.0 % [facility] Monocyte Abs 1.4(H) 0.3 - 0.9 x10(3)/ L [facility] Eos % 0.0 % [facility] Eosinophils Abs 0.0 0.0 - 0.4 x10(3)/[facility] Basophil % 0.1 % [facility] Baso Absolute 0.0 0.0 - 0.1 x10(3)/ L [facility] Immature Gran % 1.90 % [facility] Comment: Immature granulocytes(IG's)percentage and absolute count will include metamyelocytes, myelocytes, and promyelocytes. Blood smears from CBCs yielding IG's will be scanned manually for concordance. If this scan disagrees with the automated IG or if promyelocytes are noted, a manual differential will be performed. Immature Gran Absolute 0.14(H) 0.00 - 0.04 x10(3)/ L [facility] Blood specimen (specimen) 09/22/2016 4:00 AM EST 09/22/2016 4:34 AM EST Narrative Resulting Agency Comment Spec In Lab Alirio Esparza MD HEMATOLOGY ORDERABL ES [facility] [place] [address] * (ABNORMAL) Hemogram (09/22/2016 4:00 AM EST) [facility] White Blood Cell 7.5 4.0 - 9.5 x10(3)/mc L [facility] Red Blood Cell 2.93(L) 4.00 - 5.21 x10(6)/mc L [facility] Hemoglobin 9.2(L) 11.7 - 15.5 gm/dL [facility] Hematocrit 28.0(L) 35.7 - 45.8 % [facility] Mean Cell Volume 95.6(H) 82.6 - 94.4 fL [facility] Mean Cell Hemoglobin 31.4 27.1 - 32.0 pg [facility] Mean Cell Hemoglobin Concentration 32.9 31.7 - 35.0 gm/dL [facility] Platelet 161 145 - 357 x10(3)/[facility] RDW Standard Deviation 44.0 37.0 - 46.0 fL [facility] RDW coefficient of variation 12.6 11.5 - 14.1 % [facility] Mean Platelet Volume 9.3 7.6 - 12.9 fL [facility] NRBC% auto 0.3 % [facility] NRBC Absolute 0.020(H) 0.000 - 0.000 x10(3)/ L [facility] Blood specimen (specimen) 09/22/2016 4:00 AM EST 09/22/2016 4:34 AM EST Narrative Resulting Agency Comment Spec In Lab Alirio Esparza MD HEMATOLOGY ORDERABL ES [facility] [place] [address] * (ABNORMAL) Cardiac Enzymes (09/22/2016 4:00 AM EST) [facility] Troponin-T 0.13(H) <=0.03 ng/mL [facility] Comment: 0.03 ng/mL: Represents the 99th percentile upper reference limit for normals. >0.03 ng/mL: Elevated cardiac troponin T level indicative of myocardial damage. Diagnosis of acute, evolving or recent CT requires a typical rise and gradual fall [...] consensus document of the Joint Society of Cardiology/[place] College of Cardiology Committee for the redefinition of myocardial infarction. ??Journal of the [place] College of Cardiology 2000; 36: 959-969] Creatine Kinase 338(H) 0 - 160 unit/L [facility] Blood specimen (specimen) 09/22/2016 4:00 AM EST 09/22/2016 4:34 AM EST Narrative Resulting Agency Comment Spec In Lab Alirio Esparza MD CHEMISTRY ORDERABLE S [facility] [place] [id number] * (ABNORMAL) Glucose, fasting (09/22/2016 4:00 AM [...] of Diabetes Mellitus, Position Statement from the [place] Diabetes Association. ??Diabetes Care, Volume 33, Supplement 1, Aug 2009 Blood specimen (specimen) 09/22/2016 4:00 AM EST 09/22/2016 4:34 AM EST Narrative Resulting Agency Comment Spec In Lab Alirio Epsarza MD CHEMISTRY ORDERABLE S Performing Organization Address [facility] Co de Phone Number [facility] [place] [address] * (ABNORMAL) Creatinine (09/22/2016 4:00 AM EST) Creatinine 0.69(L) 0.70 - 1.20 mg/dL [facility] Comment: Please note that the pediatric reference intervals supplied above were not validated at [facility]. Results from pediatric patients should be interpreted [...] the following links into your internet browser. [email or web address] Blood specimen (specimen) 09/22/2016 4:00 AM EST 09/22/2016 4:34 AM EST Narrative Resulting Agency Comment Spec In Lab Alirio Esparza MD CHEMISTRY ORDERABLE S Performing Organization Address [facility] Co de Phone Number [facility] [place] [address] * BUN (09/22/2016 4:00 AM EST) Blood Urea Nitrogen 10 8 - 18 mg/dL [facility] Blood specimen (specimen) 09/22/2016 4:00 AM EST 09/22/2016 4:34 AM EST Narrative Resulting Agency Comment Spec In Lab Alirio Esparza MD CHEMISTRY ORDERABLE S Performing Organization Address [facility]/ZIP Co de Phone Number [facility] [place] [address] * POCT Glucose (09/21/2016 9:59 PM EST) Glucose, POC 146 65 - 199 mg/dL [facility] Comment: Supplemental ranges: <140 mg/dL before meals <180 mg/dL all other times of the day Blood specimen (specimen) 09/21/2016 9:59 PM EST 09/21/2016 9:59 PM EST Alirio Esparza MD POINT OF CARE TEST ORDERABLES Performing Organization Address [facility] Co de Phone Number [facility] [place] [address] * POCT Glucose (09/21/2016 7:26 PM EST) Glucose, POC 152 65 - 199 mg/dL [facility] Comment: Supplemental ranges: <140 mg/dL before meals <180 mg/dL all other times of the day Blood specimen (specimen) 09/21/2016 7:26 PM EST 09/21/2016 7:26 PM EST Alirio Esparza MD POINT OF CARE TEST ORDERABLES Performing Organization Address [facility] Co de Phone Number [facility] [place] [address] * POCT Glucose (09/21/2016 6:00 PM EST) Glucose, POC 146 65 - 199 mg/dL [facility] Comment: Supplemental ranges: <140 mg/dL before meals <180 mg/dL all other times of the day Blood specimen (specimen) 09/21/2016 6:00 PM EST 09/21/2016 6:00 PM EST Alirio Esparza MD POINT OF CARE TEST ORDERABLES [facility] [place] [address] * (ABNORMAL) BLOOD GAS 2 ARTERIAL (09/21/2016 4:42 PM EST) pH, Arterial 7.35(L) 7.35 - 7.45 [facility] [...] [facility] FIO2 Art 40 % [facility] PF Ratio Art 270 [facility] Blood specimen (specimen) 09/21/2016 4:42 PM EST 09/21/2016 4:42 PM EST Alirio Esparza MD POINT OF CARE TEST ORDERABLES Performing Organization Address City/[facility]/ZIP Co de Phone Number [facility] [place] [address] * POCT Glucose (09/21/2016 4:07 PM EST) Glucose, POC 150 65 - 199 mg/dL [facility] Comment: Supplemental ranges: <140 mg/dL before meals <180 mg/dL all other times of the day Blood specimen (specimen) 09/21/2016 4:07 PM EST 09/21/2016 4:07 PM EST Alirio Esparza MD POINT OF CARE TEST ORDERABLES Performing Organization Address [facility]/ZIP Co de Phone Number [facility] [place] [address] * (ABNORMAL) Hemoglobin (09/21/2016 4:05 PM EST) Hemoglobin 9.9(L) 11.7 - 15.5 gm/dL [facility] Blood specimen (specimen) 09/21/2016 4:05 PM EST 09/21/2016 4:20 PM EST Narrative Resulting Agency Comment Spec In Lab Alirio Esparza MD HEMATOLOGY ORDERABL ES Performing Organization Address City/[facility] Co de Phone Number [facility] [place] [address] * Potassium (09/21/2016 4:05 PM EST) Potassium 4.6 3.5 - 5.0 mmol/L [facility] [...] ORDERABLE S Performing Organization Address [facility] Co de Phone Number [facility] [place] [address] * POCT Glucose (09/21/2016 2:52 PM EST) Glucose, POC 117 65 - 199 mg/dL [facility] Comment: Supplemental ranges: <140 mg/dL before meals <180 mg/dL all other times of the day Blood specimen (specimen) 09/21/2016 2:52 PM EST 09/21/2016 2:52 PM EST Alirio Esparza MD POINT OF CARE TEST ORDERABLES Performing Organization Address [facility] Co de Phone Number [facility] [place] [address] * POCT Glucose (09/21/2016 1:51 PM EST) Glucose, POC 108 65 - 199 mg/dL [facility] Comment: Supplemental ranges: <140 mg/dL before meals <180 mg/dL all other times of the day Blood specimen (specimen) 09/21/2016 1:51 PM EST 09/21/2016 1:51 PM EST Alirio Esparza MD POINT OF CARE TEST ORDERABLES Performing Organization Address [facility] Co de Phone Number [facility] [place] [address] * POCT Glucose (09/21/2016 12:54 PM EST) Glucose, POC 128 65 - 199 mg/dL [facility] Comment: Supplemental ranges: <140 mg/dL before meals <180 mg/dL all other times of the day Blood specimen (specimen) 09/21/2016 12:54 PM EST 09/21/2016 12:54 PM EST Alirio Esparza MD POINT OF CARE TEST ORDERABLES Performing Organization Address [facility] Co de Phone Number [facility] [place] [address] * EKG 12 Lead (09/21/2016 12:26 PM EST) Ventricular rate 87 BPM MUSE SYSTEM Atrial Rate 87 BPM MUSE SYSTEM P-R Interval 256 ms MUSE SYSTEM QRS Duration 90 ms MUSE SYSTEM Q-T Interval 406 ms MUSE SYSTEM QTC Calculated (Bezet) 488 ms MUSE SYSTEM Calculated P [place] 24 degrees MUSE SYSTEM Calculated R [place] 21 degrees MUSE SYSTEM Calculated T [place] -5 degrees MUSE SYSTEM INTERPRETATION Sinus rhythm [...] ECG ORDERABLES Performing Organization Address [facility] Phone Number MUSE SYSTEM * XR Chest [...] course of the esophagus and below the [id number]. There is a right IJ PA catheter [...] the course of theesophagus and below the [id number]. There is a right IJ PA catheter [...] [facility] FIO2 Art 100 % [facility] PF Ratio Art 356 [facility] Blood specimen (specimen) 09/21/2016 12:20 PM EST 09/21/2016 12:20 PM EST Alirio Esparza MD POINT OF CARE TEST ORDERABLES Performing Organization Address City/State/[facility] Co de Phone Number [facility] [place] [address] * (ABNORMAL) BLOOD GAS 2 ARTERIAL (09/21/2016 [...] [facility] FIO2 Art 95 % [facility] Flow Art 0.7 LPM [facility] PF Ratio Art 313 [facility] Temp Art 36.7 Celsius [facility] Blood specimen (specimen) 09/21/2016 10:54 AM EST 09/21/2016 10:54 AM EST Alirio Esparza MD POINT OF CARE TEST ORDERABLES [facility] [place] [address] * Thrombin time (09/21/2016 10:50 AM EST) [...] ORDERABLE S Performing Organization Address [facility] Co de Phone Number [facility] [place] [address] * Fibrinogen (09/21/2016 10:50 AM EST) [facility] Signature Fibrinogen 228 180 - 510 mg/dL [facility] [...] ORDERABLE S Performing Organization Address [facility] Co de Phone Number [facility] [place] [address] * APTT (09/21/2016 10:50 AM EST) Partial Thromboplastin Time 32 25 - 35 sec [facility] Comment: The recommended therapeutic range for full dose, unfractionated heparin at [facility] is 80 ? 114 seconds. The use of the anti-Xa (heparin) level rather than the PTT is recommended for monitoring anticoagulation intensity in critically ill patients receiving unfractionated heparin by continuous IV infusion. Blood specimen (specimen) 09/21/2016 10:50 AM EST 09/21/2016 10:56 AM EST Narrative Resulting Agency Comment Spec In Lab Luis Enrique Quarles MD HEMATOLOGY ORDERABLE S Performing Organization Address [facility] Co de Phone Number [facility] [place] [address] * (ABNORMAL) Prothrombin Time (09/21/2016 10:50 AM [...] ORDERABLE S Performing Organization Address [facility] Co de Phone Number [facility] [place] [address] * (ABNORMAL) Hemogram (09/21/2016 10:50 AM EST) White Blood Cell 14.7(H) 4.0 - 9.5 x10(3)/mc L [facility] Red Blood Cell 2.40(L) 4.00 - 5.21 x10(6)/mc L [facility] Hemoglobin 7.9(L) 11.7 - 15.5 gm/dL [facility] Hematocrit 23.2(L) 35.7 - 45.8 % [facility] Comment: This result has been called to MICHELLE GRIGSBY by AHSU MORENO on 09 21 2016 at 1102, [...] [facility] NRBC% auto 0.1 % [facility] NRBC Absolute 0.020(H) 0.000 - 0.000 x10(3)/mc L [facility] Blood specimen (specimen) 09/21/2016 10:50 AM EST 09/21/2016 10:56 AM EST Narrative Resulting Agency Comment Spec In Lab Luis Enrique Quarles MD HEMATOLOGY ORDERABLE S Performing Organization Address City/[facility]/ZIP Co de Phone Number [facility] [place] [address] * Prepare Platelets, Apheresis (09/21/2016 10:30 AM EST) Pathologist [facility] Dispensed? Yes [facility] Blood specimen (specimen) 09/21/2016 10:30 AM EST 09/21/2016 10:28 AM EST Alirio Esparza MD BLOOD BANK PRODUCT ORDERABLES Performing Organization Address City/[facility]/ZIP Co de Phone Number [facility] [place] [address] * (ABNORMAL) BLOOD GAS 2 ARTERIAL (09/21/2016 10:05 AM EST) pH, Arterial 7.33(L) 7.35 - 7.45 [facility] PCO2, Arterial 54(Critic al) 35 - 45 mmHg [facility] Comment:Noted by brass wind instrument maker. PO2, Arterial 218(H) 85 - [...] mmol/L [facility] Comment: Noted by brass wind instrument maker. Please note: Patients with WBC [...] [facility] Temp Art 37.0 Celsius [facility] Blood specimen (specimen) 09/21/2016 10:05 AM EST 09/21/2016 10:05 AM EST Alirio Esparza MD POINT OF CARE TEST ORDERABLES [facility] [place] [address] * (ABNORMAL) BLOOD GAS 2 ARTERIAL (09/21/2016 9:44 AM EST) pH, Arterial 7.22(Criti gabrielle) 7.35 - 7.45 [facility] Comment:Noted by brass wind instrument maker. PCO2, Arterial 70(Critica l) 35 - 45 mmHg [facility] Comment:Noted by brass wind instrument maker. PO2, Arterial 224(H) 85 - [...] Organization Address City/[facility] Co de Phone Number [facility] [place] [address] * (ABNORMAL) Hemoglobin (09/21/2016 9:42 AM EST) Hemoglobin 7.2(L) 11.7 - 15.5 gm/dL [facility] Blood specimen (specimen) 09/21/2016 9:42 AM EST 09/21/2016 9:51 AM EST Narrative Resulting Agency Comment Spec In Lab Alirio Esparza MD HEMATOLOGY ORDERABL ES Performing Organization Address City/[facility] Co de Phone Number [facility] [place] [address] * Platelet count (09/21/2016 9:42 AM EST) Platelet 159 145 - 357 x10(3)/mc L [facility] Immature Plt % 1.6 0.0 - 7.4 % [facility] Comment: Limitation of the Immature Platelet Fraction (IPF)-May be less reliable when the platelet count is less than 58l830/uL due to statistical imprecision. The IPF value [...] in a decreased state of production. References: [employer] The Clinical Value of the Immature Platelet Fraction (IPF) in Cell Recovery Document Number 10-1143 12/2010 [employer] The Role of the Immature Platelet Fraction (IPF) in the Differential Diagnosis of Thrombocytopenia, Document MKT-[id number] V012/11/13 P012/13 Blood specimen (specimen) 09/21/2016 9:42 AM EST 09/21/2016 9:51 AM EST Narrative Resulting Agency Comment Spec In Lab Alirio Esparza MD HEMATOLOGY ORDERABL ES Performing Organization Address [facility] de Phone Number [facility] [place] [address] * (ABNORMAL) Hematocrit (09/21/2016 9:42 AM EST) [...] MD HEMATOLOGY ORDERABL ES Performing Organization Address [facility] Phone Number [facility] [place] [address] * Fibrinogen (09/21/2016 9:42 AM EST) Fibrinogen [...] ORDERABL ES Performing Organization Address [facility] Co de Phone Number [facility] [place] [address] * (ABNORMAL) BLOOD GAS 2 ARTERIAL (09/21/2016 [...] [facility] Temp Art 37.0 Celsius [facility] Blood specimen (specimen) 09/21/2016 9:10 AM EST 09/21/2016 9:10 AM EST Alirio Esparza MD POINT OF CARE TEST ORDERABLES [facility] [place] [address] * Surgical Pathology Report (09/21/2016 9:09 AM EST) Final Diagnosis [id number] ?Location: 3T The signing pathologist has (i) [...] Esparza MD PATHOLOGY/CYTOLOGY ORDERABLES Performing Organization Address City/[facility]/[place] [address] * Specimen to Pathology (surgical or derm) (09/21/2016 9:09 AM EST) AP Specimen 09/21/2016 9:09 AM EST 09/21/2016 9:09 AM EST Narrative [facility] - 09/21/2016 9:09 AM EST Specimen requisition ordered. ??Separate Pathology report to follow Alirio Esparza MD PATHOLOGY/CYTOLOGY ORDERABLES Performing Organization Address [facility] [place] [address] * (ABNORMAL) BLOOD GAS 2 ARTERIAL (09/21/2016 [...] Co de Phone Number [facility] [place] [address] * (ABNORMAL) BLOOD GAS 2 ARTERIAL (09/21/2016 [...] [facility] FIO2 Art 95 % [facility] Flow Art 1.1 LPM [facility] PF Ratio Art 298 [facility] Temp Art 35.6 Celsius [facility] Blood specimen (specimen) 09/21/2016 8:18 AM EST 09/21/2016 8:18 AM EST Alirio Esparza MD POINT OF CARE TEST ORDERABLES Performing Organization Address [facility] de Phone Number [facility] [place] [address] * Prepare RBC (09/21/2016 7:05 AM EST) Pathologist [facility] Dispensed? Yes [facility] Blood specimen (specimen) 09/21/2016 7:05 AM EST 09/21/2016 7:02 AM EST Alirio Esparza MD BLOOD BANK PRODUCT ORDERABLES Performing Organization Address [facility] Co de Phone Number [facility] [place] [address] * POCT Glucose (09/21/2016 6:42 AM EST) Pathologist [facility] Glucose, POC 104 65 - 199 mg/dL [facility] Comment: Supplemental ranges: <140 mg/dL before meals <180 mg/dL all other times of the day Blood specimen (specimen) 09/21/2016 6:42 AM EST 09/21/2016 6:42 AM EST Alirio Esparza MD POINT OF CARE TEST ORDERABLES Performing Organization Address City/State/[facility] Co de Phone Number [facility] [place] [address] documented in this encounter Visit Diagnoses Not [...] dose on Wed09/21/16 at 1230, Until Discontinued, [place] teeth, Routine Given 09/25/2016 9:40 AM EST [...] RN) 162 (Given - Provider: Chaya Hill, VLADO) buPROPion (WELLBUTRIN SR or ZYBAN) SR tablet [...] dose on Wed09/21/16 at 1230, Until Discontinued, [place] teeth, Routine 0900 (Not Given - Provider: [...] , Routine 816 (See Alternative - Provider: lEsa Miguel RN) [...] Routine documented in this encounter Care Teams Telegraphic Typewriter Installer Relationship Specialty Start Date End Date Deborah Quiroga, HEALTH POLICY ANALYST PCP - General Family Medicine 03/24/16 02/04/23 documented as of this encounter
--- OUTSIDE RECORDS SUMMARY | 2024-06-15 14:14 | XMS_ITS | Encounter Summary ---
Author Organization [facility] Address [facility] [place] [address] Care Team Providers Care Corduroy Brusher Operator Name Role Phone Junaid Deborah Shields APRN Primary Care Provider [phone] Encounter Details Date Type Department Care Team (Late st Contact Info) Description 07/17/2016 9:00 AM EST Office Visit [place] [address] Markel Borjas MD [facility] [address] HEMATOLOGY [place] [address] Neutropenia, unspecified type Social History Tobacco Use [...] 9:00 AM EST Hematology Outpatient Clinic [facility] Hematology [...] TOUCH PREP, CLOT SECTION, CORE ??BIOPSY); [OSR# [id number], COLLECTED 06/23/2016, 19 SLIDES]: ?1. 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 Labs will be drawn at [facility] next week Imaging As above - [...] leukopenia. Will consi kanwal talking to pt's typesetting machine tender about a switch from ACEI to ARB [...] the original note were not included. N [facility] HEM ONC [facility] [id number] Date: 07/17/16 Patient Name: Purnima Thacker : 1955 Diagnosis: neutropenia Referral to [site]: [facility] Orders: ? Labs: Fax results to . [x] Draw CBC, copper level, CMV PCR, mononucleosis screen on 07/20 Repeat CBC on 07/30 (to measure response of WBC after Neulasta) ? Growth factor: [x] Neulasta 6mg SQ injection x 1 on 07/20/2016 Signature: Markel Borjas MD beeper # [id number] documented in this encounter Plan of Treatment Upcoming Encounters Date Type Department Care Team (Late st Contact Info) Description 06/23/2024 2:00 PM EST Office Visit [place] [address] Markel Borjas MD [facility] [address] HEMATOLOGY [place] [address] 11/02/2024 12:00 PM EDT [place] [address] 11/02/2024 1:00 PM EDT [place] [address] Magdalena Peralta MD [facility] [place] [address] 03/01/2025 4:15 PM EDT Office Visit Dermatology at [place] [address] [facility] [place] [address] Marek Bonilla MD [address] [place] [address] documented as of this encounter Results * (ABNORMAL) CBC (with Diff) (07/31/2016 9:40 AM EST) [facility] White Blood Cell 2.23(EXTER NAL/ABN) 4.4 - [...] * Mononucleosis Screen (07/20/2016 10:30 AM EST) [facility] Mononucleosis Screen neg neg - neg EXTERNAL LAB Blood specimen (specimen) 07/20/2016 10:30 AM EST Markel Borjas MD IMMUNOLOGY ORDERAB LES EXTERNAL LAB * Copper, serum (07/20/2016 10:30 AM EST) [facility] Copper (NOVEMBER) 1.09 0.75 - 1.45 EXTERNAL LAB Blood specimen (specimen) 07/20/2016 10:30 AM EST Markel Borjas MD LAB SEND OUT ORDER JODIE Performing Organization Address City/[facility]/ZIP Co de Phone Number EXTERNAL LAB * CMV PCR, Quantitative (07/20/2016 10:30 AM EST) CMV PCR,Quantitati ve undetected EXTERNAL LAB Blood specimen (specimen) 07/20/2016 10:30 AM EST Markel Borjas MD MOLECULAR ORDERABL ES Performing Organization Address [facility] Co de Phone [...] LES Performing Organization Address [facility] Co de Phone Number EXTERNAL LAB documented in this encounter Visit Diagnoses Diagnosis Neutropenia, unspecified type documented in this encounter Care Teams Corduroy Brusher Operator Relationship Specialty Start Date End Date Deborah Quiroga, NITROCELLULOSE MAKER PCP - General Family Medicine 03/24/16 02/04/23 documented as of this encounter
--- OUTSIDE RECORDS SUMMARY | 2024-06-15 14:14 | XMS_ITS | Encounter Summary ---
[place] [address] Care Team Providers Care Solution Engineer Name Role Phone Junaid, Deborah Shields APRN Primary Care Provider [phone] Reason for Visit * Reason Onset Date Comments Labs Only 09/16/2016 Encounter Details Date Type Department Care Team (Late st Contact Info) Description 09/16/2016 Telephone Hematology [place] [phone] Alexandrea Greenwood, RN Labs Only Social History [...] 09/16/2016 11:09 AM EST Message received from pathology secretary/transcriptionist: Purnima is having her Neulasta done today at [facility]. ??She is wondering if we want to do a CBC prior to the injection? [phone] Borjas: CBC is fine RN spoke with Swapna at [facility] who confirms they can draw CBC on pt today, RN faxed CBC w/diff to [facility] lab at [phone] RN relayed to pt that CBC ordered had been faxed to [facility], pt will have CBC drawn today prior to neulasta injection. documented in this encounter Plan of Treatment Upcoming Encounters Date Type Department Care Team (Late st Contact Info) Description 06/23/2024 2:00 PM EST Office Visit Hematology [place] [phone] Markel Borjas MD [facility] [address] [place] [address] 11/02/2024 12:00 PM EDT Appointment [place] [address] 11/02/2024 1:00 PM EDT Office [place] [address] Magdalena Peralta MD [facility] [place] [address] 03/01/2025 4:15 PM EDT Office Visit Dermatology at [address] [address] Marek Bonilla MD [address] [facility], [address] A DERMATOLOGY [place], [place] [id number] documented as of this encounter Results * [...] type documented in this encounter Care Teams Solution Engineer Relationship Specialty Start Date End Date Deborah Quiroga, TAPE KELLER OPERATOR PCP - General Family Medicine 03/24/16 02/04/23 documented as of this encounter
--- OUTSIDE RECORDS SUMMARY | 2024-06-15 14:14 | XMS_ITS | Encounter Summary ---
Author Organization Formerly [facility] [place] [address] Care Team Providers Care Fishing Accessories Maker Name Role Phone Ashley Quirogazca Shields APRN Primary Care Provider +[phone]- [phone] Encounter Details Date Type Department Care Team (Late st Contact Info) Description 09/17/2016 External Results Hematology and Oncology at [place] [phone] Alexandrea [place] RN Neutropenia, unspecified type Social [...] EST Office Visit Hematology [place] [address] Markel Borjas MD [facility] [address] HEMATOLOGY [place] [address] 11/02/2024 12:00 PM EDT Appointment [place] [address] 11/02/2024 1:00 PM EDT Office Visit Rheumatology at [place] [phone] Magdalena Peralta MD [facility] [place] [address] 03/01/2025 4:15 PM EDT Office Visit Dermatology at [place] [address] [place] [address] Marek Bonilla MD [address], [place] [address] documented as of this encounter Procedures Procedure [...] type documented in this encounter Care Teams Fishing Accessories Maker Relationship Specialty Start Date End Date Deborah Quiroga APRN PCP - General Family Medicine 03/24/16 02/04/23 documented as of this encounter
--- OUTSIDE RECORDS SUMMARY | 2024-06-15 14:15 | XMS_ITS | Encounter Summary ---
Author Organization [facility] [place] [address] Care Team Providers Care Margin Clerk Name Role Phone Eitan Danni OSBORN Primary Care Provider Encounter Details Date Type Department Care Team (Late st Contact Info) Description 01/23/2014 9:25 AM EDT - 01/23/2014 10:25 AM ED[place] [address] Alan Jacobson MD [facility] [address] CARDIAC CATHETERIZATION Social History Tobacco Use Types [...] by your doctor, do not take any zkcz-xok-zpjksju medicines or herbal preparations without first discussing this with your doctor or pharmacist. There is the possibility of side effect and interactions when these are combined. Follow up Care Who to Call with Questions or Problems If there are any questions or problems that you think might be related to your cardiac cath or angioplasty, contact the test technician hearing consultant by calling [facility] at . documented in this [...] EST Office Visit [place] [address] Markel Borjas MD [facility] DR HEMATOLOGY [place] [address] 11/02/2024 12:00 PM EDT Appointment [place] [address] 11/02/2024 1:00 PM EDT Office [place] [address] Magdalena Peralta MD [facility] DR RHEUMATOLOGY DEPT [place], [place] [address] 03/01/2025 4:15 PM EDT Office Visit Dermatology at [place] [address] [place] [address] Marek Bonilla MD [address], [place] [address] documented as of this encounter Procedures Procedure Name Priority Date/Time Associated Diagnosis Comments ECHOCARDIOGRAM TRANSTHORACIC Routine 01/23/2014 3:17 PM EDT SOB (shortness of breath) documented in this encounter Results * Echocardiogram Transthoracic(Leb) (01/23/2014 3:17 PM EDT) EF 50 HEARTDrimmi SYSTEM Anatomical Region Laterality Modality Other 01/23/2014 Narrative 01/23/2014 4:35 PM EDT Procedure: ? Transthoracic Echocardiogram Patient: ? ANDREW ONESIMO M ?(Age): 1955(58) Med Rec#: ?[id number] ? Sex: ?F ? Site Loc: ?[facility] ? Ht / Wt: ??158(cm)/93(kg) Pt. Loc: ? Adult Floor ?BSA: ?2.02 Study Date: ?01/23/2014 ? Pt. Type: Inpatient Tape: ? Referring: Lee Kincaid ([id number]) Referring: ANNALISA Store Warehouse Associate: Miguel Beverly Diagnosis:CPT Code(s): ??Echo Full (23504), ??Spectral Doppler (17855), Color Doppler (33294), Indication(s): ??Aortic stenosis Rhythm: Sinus HR ?BP [...] ? Mid-Inferior ?Hypokinetic ? Mid-Inferoseptal ?Hypokinetic ? [place]-Septal ? Hypokinetic ? [place]-Anterior ? Hypokinetic ? [place]-Lateral ?Hypokinetic ? [place]-Inferior ? Hypokinetic ? [place]-Tip ?Hypokinetic ? Chambers ?Value ?Units (Range) ? [...] 01/23/2014 16:34:37 Images reviewed and interpretation verified [facility] Cardiac Ultrasound Laboratory Procedure Note Lee Kincaid MD - 01/23/2014 Procedure: Transthoracic Echocardiogram Patient: ANDREW Mejias (Age): 1955(58) Med Rec#: [id number] Sex: F Site Loc: [facility] Ht / Wt: 158(cm)/93(kg) Pt. Loc: Adult Floor BSA: 2.02 Study Date: 01/23/2014 Pt. Type: Inpatient Tape: Referring: Lee Kinciad ([id number]) Referring: ANNALISA Store Warehouse Associate: Miguel Beverly Diagnosis:CPT Code(s): Echo Full (80555), Spectral Doppler (30299), Color Doppler (42349), Indication(s): Aortic stenosis Rhythm: Sinus HR BP [...] Hypokinetic Mid-Posterolateral Hypokinetic Mid-Inferior Hypokinetic Mid-Inferoseptal Hypokinetic [place]-Septal Hypokinetic [place]-Anterior Hypokinetic [place]-Lateral Hypokinetic [place]-Inferior Hypokinetic [place]-Tip Hypokinetic Chambers Value Units (Range) IVSd 2D [...] 01/23/2014 16:34:37 Images reviewed and interpretation verified [facility] Cardiac Ultrasound Laboratory Lee Kincaid [...] RN) documented in this encounter Care Teams Margin Clerk Relationship Specialty Start Date End Date Danni Laird APRN [address] [facility] [place] [address] PCP - General 01/23/14 11/11/14 documented as of this encounter
--- OUTSIDE RECORDS SUMMARY | 2024-06-15 14:15 | XMS_ITS | Encounter Summary ---
Author Organization [facility] [place] [address] Care Team Providers Care Kiln Packer Name Role Phone Ashley Quirogazac Shields APRN Primary Care Provider [phone] Encounter Details Date Type Department Care Team (Late st Contact Info) Description 03/24/2016 Notes [place] [address] Alfa Lua Social History Tobacco Use Types [...] assessments completed: Wadsworth Score: 6/6 IADL: 7/7 Dairy Associate Strength Trials: 18.4, 15.0, 16.8 (right hand dominant) 5 meter walk test in seconds x3: 4.98, 4.88, 4.45 KCCQol: 98% Alfa Lua documented in this encounter Plan of Treatment Upcoming Encounters Date Type Department Care Team (Late st Contact Info) Description 06/23/2024 2:00 PM EST Office Visit H[place] [address] Markel Borjas MD [facility] [address] [place] [address] 11/02/2024 12:00 PM EDT Appointment Pulmonology at [place] [address] 11/02/2024 1:00 PM EDT Office [place] [address] Magdalena Peralta MD [facility] [place] [address] 03/01/2025 4:15 PM EDT Office Visit Dermatology at [place] [address] [facility] [address] [place] [address] Marek Bonilla MD [address], [place] [address] documented as of this encounter Visit Diagnoses Not on filedocumented in this encounter Care Teams Kiln Packer Relationship Specialty Start Date End Date Deborah Quiroga APRN PCP - General Family Medicine 03/24/16 02/04/23 documented as of this encounter
--- OUTSIDE RECORDS SUMMARY | 2024-06-15 14:15 | XMS_ITS | Encounter Summary ---
Author Organization [facility] [place] [address] Care Team Providers Care Concrete Block Molder Name Role Phone Mitchell Wilkes MD Primary Care Provider [phone] Encounter Details Date Type Department Care Team (Late st Contact Info) Description 01/19/2014 Orders Only Cardiology at [address] [address] Chele Randolph PA [facility] DR CARDIOLOGY DEPT. [place], [place] [phone] Cardiomyopathy (Primary Dx) Social History Tobacco Use [...] Office Visit Hematology [place] [address] Markel Borjas MD [facility] DR HEMATOLOGY AND ONCOLOGY [place], [place] [address] 11/02/2024 12:00 PM EDT Appointment [place] [address] 11/02/2024 1:00 PM EDT Office Visit [place] [address] Magdalena Peralta MD [facility] [place] [address] 03/01/2025 4:15 PM EDT Office Visit Dermatology at [place] [address] [place] [address] Marek Bonilla MD [address], [place] [address] documented as of this encounter Procedures Procedure [...] cardiomyopathies documented in this encounter Care Teams Concrete Block Molder Relationship Specialty Start Date End Date Mitchell Wilkes MD [facility] PCP - General 06/24/10 01/19/14 documented as of this encounter
--- OUTSIDE RECORDS SUMMARY | 2024-06-15 14:15 | XMS_ITS | Encounter Summary ---
Author Organization [facility] Address [facility] [place] [address] Care Team Providers Care Automotive Parts Counter Person Name Role Phone sAhley Quirogan Cornelius ANURAG Primary Care Provider [phone]- [phone] Encounter Details Date Type Department Care Team (Late st Contact Info) Description 05/22/2016 Orders Only Cardiology at [address] [phone] Chele Randolph PA [facility] DR CARDIOLOGY DEPT. [place], [place] [phone] Aortic valve stenosis, unspecified etiology Social History [...] EST Office Visit Hematology [place] [address] Markel Borjas MD [facility] [address] HEMATOLOGY AND ONCOLOGY [place], [place] [address] 11/02/2024 12:00 PM EDT Appointment [place] [address] 11/02/2024 1:00 PM EDT Office [place] [address] Magdalena Peralta MD [facility] [place] [address] 03/01/2025 4:15 PM EDT Office Visit Dermatology at [place] [address] [facility] [place] [place] [address] Marek Bonilla MD [address], [place] [address] documented as of this encounter Procedures Procedure [...] ? Procedure Date: 06/03/2016 ? A #: [id number] ? Primary Physician: Fanny, Nitesh Shields ? Case #: [id number] ? File Name: [id number] ? Catheterization Order Number: [id number] ? [facility] ? Final Report [place], [place] ? Patient Name: ? Purnima M. Kirstie ? ID#: ?[id number] ? : ?1955 ? Procedure Date: ? [...] no symptom, no angina (w/i 14 days). Syrian ?Cardiovascular Society angina class was 0. This [...] Purnima Thacker Procedure Date: 06/03/2016 A #: [id number] Primary Physician: Nitesh Escobedo Case #: [id number] File Name: [id number] Catheterization Order Number: [id number] [facility] FinalReport [place], [place] Patient Name: Purnima Thacker ID#:[id number] :1955 Procedure Date: June 03, 2016 Case [...] with: no symptom, no angina (w/i 14 days).Syrian Cardiovascular Society angina class was 0. This [...] documented in this encounter Care Teams Automotive Parts Counter Person Relationship Specialty Start Date End Date Deborah Quiroga, HIGH PRESSURE BOILER OPERATOR PCP - General Family Medicine 03/24/16 02/04/23 documented as of this encounter
--- OUTSIDE RECORDS SUMMARY | 2024-06-15 14:15 | XMS_ITS | Encounter Summary ---
Author Organization [facility] [place] [address] Care Team Providers Care Brusher Hand Name Role Phone Ashley Quirogazac Shields APRN Primary Care Provider [phone] Reason for Visit * Consultation (Urgent) - Closed Specialty Diagnoses / Procedures Referred By Contac t Referred To Contact Cardiac Surgery Diagnoses aortic stenosis, consideration for valve replacement Antelmo Burrell MD [address] [place] [address] [place] [address] Alirio Esparza MD [facility] DR CARDIOTHORACIC [place] [address] Referral ID Status Reason Start Date Expiration Date V isits Requested Visits Authorized [id number] Closed Connection Center 03/04/2016 03/04/2017 1 1 Encounter Details Date Type Department Care Team (Late st Contact Info) Description 03/24/2016 10:40 AM EDT Office [place] [address] Alirio Esparza MD Aortic valve stenosis, unspecified [...] This is a patient of Antelmo Burrell [facility] Cardiology. Mrs. Thacker is being sent for [...] 30 minute visit, 20 minutes were spent [id number] with the patient discussing aortic stenosis and valve replacement. documented in this encounter Plan of Treatment Upcoming Encounters Date Type Department Care Team (Late st Contact Info) Description 06/23/2024 2:00 PM EST Office Visit [place] [address] Markel Borjas MD [facility] DR HEMATOLOGY [place] [address] 11/02/2024 12:00 PM EDT Appointment Pulmonology at [place] [phone] 11/02/2024 1:00 PM EDT Office [place] [address] Magdalena Peralta MD [facility] [place] [address] 03/01/2025 4:15 PM EDT Office Visit Dermatology at [place] [address] [facility] [place] [address] Marek Bonilla MD [address], [place] [address] documented as of this encounter Visit Diagnoses Diagnosis Aortic valve stenosis, unspecified etiology documented in this encounter Care Teams Brusher Hand Relationship Specialty Start Date End Date Deborah Quiroga APRN PCP - General Family Medicine 03/24/16 02/04/23 documented as of this encounter
--- OUTSIDE RECORDS SUMMARY | 2024-06-15 14:15 | XMS_ITS | Encounter Summary ---
Author Organization [facility] [place] [address] Care Team Providers Care Counter Manager Name Role Phone Juniad, Deborah Shields APRN Primary Care Provider [phone] Encounter Details Date Type Department Care Team (Late st Contact Info) Description 05/19/2016 10:00 AM EDT Office Visit [place] [address] Alirio Esparza MD Nonrheumatic aortic valve stenosis [...] Visit Hematology and Oncology at [place] [phone] Markel Borjas MD [facility] DR HEMATOLOGY [place] [address] 11/02/2024 12:00 PM EDT Appointment [place] [address] 11/02/2024 1:00 PM EDT Office Visit [place] [address] Magdalena Peralta MD [facility] [place] [address] 03/01/2025 4:15 PM EDT Office Visit Dermatology at [place] [address] [place] [address] Marek Bonilla MD [address], [place] [address] documented as of this encounter Results * [...] (Bezet) 448 ms MUSE SYSTEM Calculated P [place] 37 degrees MUSE SYSTEM Calculated R [place] 31 degrees MUSE SYSTEM Calculated T [place] 25 degrees MUSE SYSTEM INTERPRETATION Normal sinus [...] the following links into your internet browser. [email or web address] Blood specimen (specimen) 05/19/2016 11:32 AM EDT 05/19/2016 11:41 AM EDT Narrative Resulting Agency Comment Spec In Lab Alirio Esparza [place] [address] documented in this encounter Visit Diagnoses Diagnosis Nonrheumatic aortic valve stenosis Aortic valve disorders Nonrheumatic aortic valve stenosis Aortic valve disorders documented in this encounter Care Teams Counter Manager Relationship Specialty Start Date End Date Deborah Quiroga, FISHER WEIR PCP - General Family Medicine 03/24/16 02/04/23 documented as of this encounter
--- OUTSIDE RECORDS SUMMARY | 2024-06-15 14:15 | XMS_ITS | Encounter Summary ---
Author Organization [facility] [place] [address] Care Team Providers Care Tobacco Sieve Operator Name Role Phone Jerel Sofia Garcia APRN Primary Care Provider [phone] Encounter Details Date Type Department Care Team (Latest Contact Info) Description 11/12/2014 8:10 AM EDT - 11/12/2014 11:59 PM EDT Hospital [place] [address] CLINIC, DR ABE Burrell, Antelmo Porter MD [facility] [address] [place], [place] [address] Discharge Disposition: Home Social History Tobacco Use [...] EST Office Visit [place] [address] Markel Borjas MD [facility] DR [place] [address] 11/02/2024 12:00 PM EDT [place] [address] 11/02/2024 1:00 PM EDT [place] [address] Magdalena Peralta MD [facility] [place] [address] 03/01/2025 4:15 PM EDT Office Visit Dermatology at [place] [address] [facility] [place] [address] Marek Bonilla MD [address] [facility], [place] [address] documented as of this encounter Procedures Procedure [...] mLs documented in this encounter Care Teams Tobacco Sieve Operator Relationship Specialty Start Date End Date Sofia Beltrán APRN [address] [place] [address] PCP - General 11/12/14 03/23/16 documented as of this encounter
--- OUTSIDE RECORDS SUMMARY | 2024-06-15 14:15 | XMS_ITS | Encounter Summary ---
[place] [address] Care Team Providers Care Rubber Compounder Mixer Name Role Phone Mitchell Wilkes MD Primary Care Provider [phone] Reason for Visit * Reason Onset Date Comments Other 01/18/2014 Encounter Details Date Type Department Care Team (Late st Contact Info) Description 01/18/2014 Telephone Cardiology at [address] [address] Jesusita Garces Other Social History [...] EST Office Visit H[place]ology [place] [address] Markel Borjas MD [facility] [address] HEMATOLOGY [place] [address] 11/02/2024 12:00 PM EDT Appointment Pulmonology at [place] [address] 11/02/2024 1:00 PM EDT Office Visit Rheumatology at [place] [phone] Magdalena Peralta MD [facility] [place] [address] 03/01/2025 4:15 PM EDT Office Visit Dermatology at [place] [address] [facility] [place] [address] Marek Bonilla MD [address], [place] [address] documented as of this encounter Visit Diagnoses Not on filedocumented in this encounter Care Teams Rubber Compounder Mixer Relationship Specialty Start Date End Date Mitchell Wilkes MD [facility] PCP - General 06/24/10 01/19/14 documented as of this encounter
--- OUTSIDE RECORDS SUMMARY | 2024-06-15 14:15 | XMS_ITS | Encounter Summary ---
Author Organization [facility] Address [facility] [place] [address] Care Team Providers Care Pipe Insulator Helper Name Role Phone Eitan Danni ANURAG Primary Care Provider Encounter Details Date Type Department Care Team (Latest Contact Info) Description 01/23/2014 7:45 AM EDT - 01/23/2014 5:50 PM EDT Hospital Encounter [place] [address] Alan Jacobson MD [facility] [place] [address] Cardiomyopathy; SOB (shortness of breath) Discharge Disposition: [...] by your doctor, do not take any rhqk-zkj-xznravw medicines or herbal preparations without first discussing this with your doctor or pharmacist. There is the possibility of side effect and interactions when these are combined. Follow up Care Who to Call with Questions or Problems If there are any questions or problems that you think might be related to your cardiac cath or angioplasty, contact the operator/assistant foreman confectionery maker by calling [facility] at . documented in this [...] EST Office Visit Hematology [place] [address] Markel Borjas MD [facility] DR HEMATOLOGY [place] [address] 11/02/2024 12:00 PM EDT Appointment [place] [address] 11/02/2024 1:00 PM EDT Office Visit Rheumatology at [place] [phone] Magdalena Peralta MD [facility] [place] [address] 03/01/2025 4:15 PM EDT Office Visit Dermatology at [place] [address] [place] [address] Marek Bonilla MD [address] [facility], [place] [address] documented as of this encounter Procedures Procedure Name Priority Date/Time Associated Diagnosis Comments ECHOCARDIOGRAM TRANSTHORACIC Routine 01/23/2014 3:17 PM EDT SOB (shortness of breath) documented in this encounter Results * Echocardiogram Transthoracic(Leb) (01/23/2014 3:17 PM EDT) Pathologist [facility] EF 50 HEARTOnApp SYSTEM Anatomical Region Laterality Modality Other 01/23/2014 Narrative 01/23/2014 4:35 PM EDT Procedure: ? Transthoracic Echocardiogram Patient: ? ANDREW ONESIMO M ?(Age): 1955(58) Med Rec#: ?[id number] ? Sex: ?F ? Site Loc: ?[facility] ? Ht / Wt: ??158(cm)/93(kg) Pt. Loc: ? Adult Floor ?BSA: ?2.02 Study Date: ?01/23/2014 ? Pt. Type: Inpatient Tape: ? Referring: Lee Kincaid ([id number]) Referring: ANNALISA Second Ride Fare Collector: Miguel Beverly Diagnosis:CPT Code(s): ??Echo Full (64137), ??Spectral Doppler (33221), Color Doppler (01745), Indication(s): ??Aortic stenosis Rhythm: Sinus HR ?BP [...] ? Mid-Inferior ?Hypokinetic ? Mid-Inferoseptal ?Hypokinetic ? [place]-Septal ? Hypokinetic ? [place]-Anterior ? Hypokinetic ? [place]-Lateral ?Hypokinetic ? [place]-Inferior ? Hypokinetic ? [place]-Tip ?Hypokinetic ? Chambers ?Value ?Units (Range) ? [...] 16:34:37 Images reviewed and interpretation verified [facility] Cardiac Ultrasound Laboratory Procedure Note Lee Kincaid MD - 01/23/2014 Procedure: Transthoracic Echocardiogram Patient: ANDREW Mejias (Age): 1955(58) Med Rec#: [id number] Sex: F Site Loc: [facility] Ht / Wt: 158(cm)/93(kg) Pt. Loc: Adult Floor BSA: 2.02 Study Date: 01/23/2014 Pt. Type: Inpatient Tape: Referring: Lee Kincaid ([id number]) Referring: ANNALISA Second Ride Fare Collector: Miguel Beverly Diagnosis:CPT Code(s): Echo Full (23942), Spectral Doppler (83383), Color Doppler (00409), Indication(s): Aortic stenosis Rhythm: Sinus HR BP [...] Hypokinetic Mid-Posterolateral Hypokinetic Mid-Inferior Hypokinetic Mid-Inferoseptal Hypokinetic [place]-Septal Hypokinetic [place]-Anterior Hypokinetic [place]-Lateral Hypokinetic [place]-Inferior Hypokinetic [place]-Tip Hypokinetic Chambers Value Units (Range) IVSd 2D [...] 16:34:37 Images reviewed and interpretation verified [facility] Cardiac Ultrasound Laboratory Lee Kincaid [...] RN) documented in this encounter Care Teams Pipe Insulator Helper Relationship Specialty Start Date End Date Danni Laird APRN [address] [place] [address] PCP - General 01/23/14 11/11/14 documented as of this encounter
--- OUTSIDE RECORDS SUMMARY | 2024-06-15 14:15 | XMS_ITS | Encounter Summary ---
Author Organization [facility] [place] [address] Care Team Providers Care Bladder Cleaner Name Role Phone Eitan Danni ANURAG Primary Care Provider +1 [phone] Encounter Details Date Type Department Care Team (Late st Contact Info) Description 01/22/2014 Telephone Cardiology at [address] [phone] Cynthia Arrington LPN Social History Tobacco Use [...] LPN - 01/23/2014 2:39 PM EDT This underwriter solicitation director did not receive a call back from [...] Office Visit Hematology [place] [phone] Markel Borjas MD [facility] [address] [place] [address] 11/02/2024 12:00 PM EDT Appointment [place] [phone] 11/02/2024 1:00 PM EDT Office [place] [address] Magdalena Peralta MD [facility] [place] [address] 03/01/2025 4:15 PM EDT Office Visit Dermatology at [place] [address] [facility] [place] [address] Marek Bonilla MD [address] DERMATOLOGY [place], [place] [phone] documented as of this encounter Visit Diagnoses Not on filedocumented in this encounter Care Teams Bladder Cleaner Relationship Specialty Start Date End Date Danni Laird APRN [address] [place] [address] PCP - General 01/23/14 11/11/14 documented as of this encounter
--- OUTSIDE RECORDS SUMMARY | 2024-06-15 14:15 | XMS_ITS | Encounter Summary ---
Author Organization [facility] Address [facility] [place] [address] Care Team Providers Care Offset Platemaker Name Role Phone Junaid Deborah Shields APRN Primary Care Provider +1 [phone] Encounter Details Date Type Department Care Team (Latest Contact Info) Description 05/19/2016 11:00 AM EDT Clinical [place] [phone] Nonrheumatic aortic valve stenosis Social History Tobacco [...] EST Office Visit Hematology [place] [address] aMrkel Borjas MD [facility] [address] [place] [address] 11/02/2024 12:00 PM EDT Appointment [place] [phone] 11/02/2024 1:00 PM EDT Office [place] [phone] Magdalena Peralta MD [facility] [place] [address] 03/01/2025 4:15 PM EDT Office Visit Dermatology at [address] [place] [address] Marek Bonilla MD [address] [facility], [place] [address] documented as of this encounter Procedures Procedure [...] (Bezet) 448 ms MUSE SYSTEM Calculated P [place] 37 degrees MUSE SYSTEM Calculated R [place] 31 degrees MUSE SYSTEM Calculated T [place] 25 degrees MUSE SYSTEM INTERPRETATION Normal sinus rhythm Normal ECG No previous ECGs available Confirmed by MD Becca, Deangelo ([id number]) on 05/19/2016 5:23:33 PM MUSE SYSTEM 05/19/2016 11:4 3 AM EDT 05/19/2016 5:23 PM EDT Alirio Esparza MD ECG ORDERABLES MUSE SYSTEM documented in this encounter Visit Diagnoses Diagnosis Nonrheumatic aortic valve stenosis Aortic valve disorders documented in this encounter Care Teams Offset Platemaker Relationship Specialty Start Date End Date Deborah Quiroga, INDUCTION MACHINE SETTER PCP - General Family Medicine 03/24/16 02/04/23 documented as of this encounter
--- OUTSIDE RECORDS SUMMARY | 2024-06-15 14:15 | XMS_ITS | Encounter Summary ---
Author Organization [facility] Address [facility] [place] [address] Care Team Providers Care Membership Counselor Name Role Phone Ashley Quirogazac Shields APRN Primary Care Provider +[phone] Encounter Details Date Type Department Care Team (Latest Contact Info) Description 05/19/2016 11:20 AM EDT Laboratory Appointment Lab at [place] [phone] Nonrheumatic aortic valve stenosis Social History Tobacco [...] Visit Hematology and Oncology at [place] [phone] Markel Borjas MD [facility] [address] [place] [address] 11/02/2024 12:00 PM EDT Appointment Pulmonology at [place] [phone] 11/02/2024 1:00 PM EDT Office Visit Rheumatology at [place] [phone] Magdalena Peralta MD [facility] [place] [address] 03/01/2025 4:15 PM EDT Office Visit Dermatology at [place] [address] [place] [phone] Marek Bonilla MD [address], [place] [address] documented as of this encounter Procedures Procedure Name Priority Date/Time Associated Diagnosis Comments SCAN, PERIPHERAL BLOOD Routine 05/19/2016 11:32 AM EDT HEMOGRAM Routine 05/19/2016 11:32 AM EDT Nonrheumatic aortic valve stenosis DIFFERENTIAL, AUTOMATED Routine 05/19/2016 11:32 AM EDT Nonrheumatic aortic valve stenosis TYPE AND SCREEN, SDP (FUTURE SURGERY, [facility] SAME DAY PROGRAM ONLY) Routine 05/19/2016 11:32 [...] [facility] RBC Morphology Normal [facility] Blood specimen (specimen) 05/19/2016 11:32 AM EDT 05/19/2016 11:41 AM EDT Narrative Resulting Agency Comment Spec In Lab Alirio Esparza MD HEMATOLOGY ORDERABL ES [facility] [place] [address] * (ABNORMAL) Differential, Automated (05/19/2016 11:32 AM EDT) Neutrophil % 25.9 % [facility] Neutrophil Absolute 0.42(Crit ical) 1.70 - 6.10 x10(3)/mc L [facility] Comment: This result has been called to DR ALIRIO ESPARZA by Alivia Ibarra on 05 19 2016 at 1228, and has been read back. Lymph % 59.9 % [facility] Lymphocytes Abs 1.0 0.9 - 3.2 x10(3)/mc L [facility] Monocyte % 13.0 % [facility] Monocyte Abs 0.2(L) 0.3 - 0.9 x10(3)/mc L [facility] Eos % 0.6 % [facility] Eosinophils Abs 0.0 0.0 - 0.4 x10(3)/mc L [facility] Basophil % 0.6 % [facility] Baso Absolute 0.0 0.0 - 0.1 x10(3)/mc L [facility] Immature Gran % 0.00 % [facility] Comment: Immature granulocytes(IG's)percentage and absolute count will include metamyelocytes, myelocytes, and promyelocytes. Blood smears from CBCs yielding IG's will be scanned manually for concordance. If this scan disagrees with the automated IG or if promyelocytes are noted, a manual differential will be performed. Immature Gran Absolute 0.00 0.00 - 0.04 x10(3)/mc L [facility] Blood specimen (specimen) 05/19/2016 11:32 AM EDT 05/19/2016 11:41 AM EDT Narrative Resulting Agency Comment Spec In Lab Alriio Esparza MD HEMATOLOGY ORDERABL ES Performing Organization Address City/[facility]/ZIP Co de Phone Number [facility] [place] [address] * (ABNORMAL) Hemogram (05/19/2016 11:32 AM EDT) White Blood Cell 1.6(Criti gabrielle) 4.0 - 9.5 x10(3)/mc L [facility] NRBC% auto 0.0 % [facility] NRBC Absolute 0.000 0.000 - 0.000 x10(3)/mc L [facility] Blood specimen (specimen) 05/19/2016 11:32 AM EDT 05/19/2016 11:41 AM EDT Narrative Resulting Agency Comment Spec In Lab Alirio Esparza MD HEMATOLOGY ORDERABL ES [facility] [place] [address] * Antibody screen (05/19/2016 11:32 AM EDT) Ab Screen Interp Negative [facility] Expires at [id number] on: 07/03/2016 [facility] Comment: Corrected from 06/11/16 12:00 [Unknown] on 06/09/16 05:51 by Bethanie Tomlinson I.. Corrected from 07/03/16 12:00 [Unknown] on 05/21/16 06:00 by Shelia Barrera Blood specimen (specimen) 05/19/2016 11:32 AM EDT 05/19/2016 11:35 AM EDT Narrative Resulting Agency Comment Spec In Lab Alirio Esparza MD BLOOD BANK LAB BETH ALEJO Performing Organization Address City/[facility]/ZIP Co de Phone Number [facility] [place] [address] * ABO/Rh Typing (05/19/2016 11:32 AM EDT) Pathologist [facility] Type B Pos [facility] Blood specimen (specimen) 05/19/2016 11:32 AM EDT 05/19/2016 11:35 AM EDT Narrative Resulting Agency Comment Spec In Lab Alirio Esparza MD BLOOD BANK LAB BETH ALEJO [facility] [place] [address] * Basic Metabolic Panel (non-fasting) (05/19/2016 11:32 AM EDT) [facility] Glucose 86 65 - 199 mg/dL [facility] Comment:Diabetes: >=200 mg/d L plus symptoms Blood Urea Nitrogen 13 8 - 18 mg/dL [facility] Creatinine 0.95 0.70 - 1.20 mg/dL [facility] Comment: Please note that the pediatric reference intervals supplied above were not validated at [facility]. Results from pediatric patients should be interpreted [...] the following links into your internet browser. [email or web address] Blood specimen (specimen) 05/19/2016 11:32 AM EDT 05/19/2016 11:41 AM EDT Narrative Resulting Agency Comment Spec In Lab Alirio Esparza MD CHEMISTRY ORDERABLE S [facility] [place] [address] documented in this encounter Visit Diagnoses Diagnosis Nonrheumatic aortic valve stenosis Aortic valve disorders documented in this encounter Care Teams Membership Counselor Relationship Specialty Start Date End Date Deborah Quiroga APRN PCP - General Family Medicine 03/24/16 02/04/23 documented as of this encounter
--- OUTSIDE RECORDS SUMMARY | 2024-06-15 14:15 | XMS_ITS | Encounter Summary ---
Author Organization [facility] Address [facility] [place] [address] Care Team Providers Care Meat Supervisor Name Role Phone Junaid, Deborah Shields APRN Primary Care Provider [phone] Reason for Visit * Auth/Cert Specialty Diagnoses / Procedures Referred By Crispin t Referred To Contact Diagnoses AVS Procedures CARDIAC CATHETERIZATION Referral ID Status Reason Start Date Expiration Date Visits Re quested Visits Authorized [id number] 1 1 Encounter Details Date Type Department Care Team (Late st Contact Info) Description 06/03/2016 6:32 AM EDT - 06/03/2016 1:10 PM EDT Hospital Encounter [place] [phone] Anjum Oliveros II, MD [facility] [place] [address] Mario Alberto Escobedo MD [facility] [place] [place] [address] Aortic valve stenosis, unspecified etiology; Nonrheumatic aortic [...] by your doctor, do not take any [id number] medicinesor herbal preparations without first discussing this with your doctor or pharmacist. There is the possibility of side effects and interactions when these are combined. Follow Up Care Who to call with questions or problems If there are any questions or problems that you think might be related to your cardiac cath or angioplasty, contact the geospatial specialist structural steel ironworker by calling [facility] at . * Patient Instructions* Felicia Corrigan - 06/03/2016 9:33 AM EDT Cardiology Instructions Call your doctor if: Chest pain, dyspnea, pain or swelling in legs occurs. If you have non-emergent questions between now and the time of your follow up appointments: -During 8am-5pm Wednesday through Wednesday call [phone] to speak with a nurse in the cardiology clinic -All other times call [phone] and ask to speak to the sheet metal layout worker structural steel ironworker. MEDICATIONS - restart your spironolactone, discontinue prior [...] Appointments: Primary care provider: Cardiology: Deborah Hahn, CHILD CARE TEACHER [phone] Follow up as planned or as needed. Dr. Esparza [phone] Other follow-up appointment: Hematology - Dr. Mario [...] Visit [place] [phone] Markel Borjas MD [facility] [address] HEMATOLOGY [place] [address] 11/02/2024 12:00 PM EDT [place]oint[place] [phone] 11/02/2024 1:00 PM EDT Office [place] [phone] Magdalena Peralta MD [facility] [place] [address] 03/01/2025 4:15 PM EDT Office Visit Dermatology at [address] [place] [phone] Marek Bonilla MD [address], [place] [address] documented as of this encounter Procedures Procedure [...] Tube HOLD (06/03/2016 11:45 AM EDT) Pathologist [facility] Green Hold Sample in lab. [facility] Blood specimen (specimen) Venous Draw / Unknown 06/03/2016 11:45 AM EDT 06/03/2016 12:12 PM EDT Mario Alberto Escobedo MD CHEMISTRY ORDERABLES [facility] [place] [address] * Methylmalonic acid, serum (06/03/2016 11:45 AM EDT) Pathologist [facility] Methylmalonic Acid (NOVEMBER) 0.21 <=0.40 nmol/mL [facility] Comment: Test Performed by: [facility] [place] [id number] Help Desk Supervisor: Raymond Chaudhry II, M.D., Ph.D. Blood specimen (specimen) 06/03/2016 11:45 AM EDT 06/03/2016 1:57 PM EDT Narrative Resulting Agency Comment Spec In Lab Mario Alberto Escobedo MD LAB SEND OUT ORDERAB LES Performing Organization Address [facility]/ZIP Co de Phone Number [facility] [place] [address] * Granulocyte Antibody (06/03/2016 11:45 AM EDT) Pathologist [facility] Granulocyte Ab (NOVEMBER) Negative Not Applicable [facility] Comment: ADDITIONAL INFORMATION Method: Immunofluorescent Assay Performing Laboratory CLIA# [id number] This test was developed and its performance characteristics determined by [facility] in a manner consistent with CLIA requirements. This test has not been cleared or approved by the U.S. Food and Drug Administration. Test Performed by: [facility] [place] [address] Help Desk Supervisor: Raymond Chaudhry II, M.D., Ph.D. Blood specimen (specimen) 06/03/2016 11:45 AM EDT 06/03/2016 1:57 PM EDT Narrative Resulting Agency Comment Spec In Lab Mario Alberto Escobedo MD LAB SEND OUT ORDERAB LES Performing Organization Address City/[facility] Co de Phone Number [facility] [address] * TSH (06/03/2016 11:45 AM EDT) Thyroid Stimulating Hormone 2.18 0.27 - 4.20 mcIU/mL [facility] Blood specimen (specimen) 06/03/2016 11:45 AM EDT 06/03/2016 12:11 PM EDT Narrative Resulting Agency Comment Spec In Lab Mario Alberto Escobedo MD CHEMISTRY ORDERABLES Performing Organization Address [facility]/ZIP Co de Phone Number [facility] [place] [address] * Homocysteine Total, Plasma (06/03/2016 11:45 AM EDT) Homocystine 9 <=15 mcmol/L [facility] Blood specimen (specimen) 06/03/2016 11:45 AM EDT 06/03/2016 12:11 PM EDT Narrative Resulting Agency Comment Spec In Lab Mario Alberto Escobedo MD CHEMISTRY ORDERABLES Performing Organization Address [facility] Co de Phone Number [facility] [place] [address] * Folate, serum (06/03/2016 11:45 AM EDT) Folate >20.0 4.8 - 24.2 ng/mL [facility] Blood specimen (specimen) 06/03/2016 11:45 AM EDT 06/03/2016 12:04 PM EDT Narrative Resulting Agency Comment Spec In Lab Mario Alberto Escobedo MD CHEMISTRY ORDERABLES Performing Organization Address [facility] Co de Phone Number [facility] [place] [address] * (ABNORMAL) Sedimentation rate (06/03/2016 11:45 AM EDT) Sedimentation Rate Automated 41(H) 0 - 20 mm/hr [facility] Blood specimen (specimen) 06/03/2016 11:45 AM EDT 06/03/2016 12:04 PM EDT Narrative Resulting Agency Comment Spec In Lab Mario Alberto Escobedo MD HEMATOLOGY ORDERABLE S [facility] [place] [address] * Lactate Dehydrogenase (06/03/2016 11:45 AM EDT) Lactate Dehydrogenase 164 110 - 220 unit/L [facility] Blood specimen (specimen) 06/03/2016 11:45 AM EDT 06/03/2016 12:11 PM EDT Narrative Resulting Agency Comment Spec In Lab Mario Alberto Escobedo MD CHEMISTRY ORDERABLES [facility] [address] * Comprehensive metabolic panel (non-fasting) (06/03/2016 11:45 [...] the following links into your internet browser. [email or web address] Blood specimen (specimen) 06/03/2016 11:45 AM EDT 06/03/2016 12:11 PM EDT Narrative Resulting Agency Comment Spec In Lab Mario Alberto Escobedo MD CHEMISTRY ORDERABLES [facility] [place] [address] documented in this encounter Visit Diagnoses Diagnosis [...] Hernandez) documented in this encounter Care Teams Meat Supervisor Relationship Specialty Start Date End Date Deborah Quiroga, CHILD CARE TEACHER PCP - General Family Medicine 03/24/16 02/04/23 documented as of this encounter
--- OUTSIDE RECORDS SUMMARY | 2024-06-15 14:15 | XMS_ITS | Encounter Summary ---
Author Organization [facility] Address [facility] [place] [address] Care Team Providers Care Motor Expert Name Role Phone JonathanDanni Leija ANURAG Primary Care Provider [phone] Encounter Details Date Type Department Care Team (Late st Contact Info) Description 01/23/2014 Orders Only Cardiology at [address] [address] Lee Kincaid MD [facility] [address] CARDIOLOGY [place], [place] [phone] SOB (shortness of breath) (Primary Dx) Social [...] EST Office Visit H[place]ology [place] [address] Markel Borjas MD [facility] DR [place] [address] 11/02/2024 12:00 PM EDT Appointment [place] [address] 11/02/2024 1:00 PM EDT Office [place] [address] Magdalena Peralta MD [facility] [place] [address] 03/01/2025 4:15 PM EDT Office Visit Dermatology at [place] [address] [facility] [place] [phone] Marek Bonilla MD [address], [address] [place] [address] documented as of this encounter Results * Echocardiogram Transthoracic(Leb) (01/23/2014 3:17 PM EDT) Pathologist [facility] [facility] EF 50 HEARTLAB SYSTEM Anatomical Region Laterality Modality Other 01/23/2014 Narrative 01/23/2014 4:35 PM EDT Procedure: ? Transthoracic Echocardiogram Patient: ? KIRSTIE ECHOLS M ?(Age): 1955(58) Med Rec#: ?[id number] ? Sex: ?F ? [place] ? Ht / Wt: ??158(cm)/93(kg) Pt. Loc: ? Adult Floor ?BSA: ?2.02 Study Date: ?01/23/2014 ? Pt. Type: Inpatient Tape: ? Referring: Lee Kincaid ([id number]) Referring: ANNALISA Head Of Commission Department: Miguel Beverly Diagnosis:CPT Code(s): ??Echo Full (25569), ??Spectral Doppler (15399), Color Doppler (36603), Indication(s): ??Aortic stenosis Rhythm: Sinus HR ?BP [...] ? Mid-Inferior ?Hypokinetic ? Mid-Inferoseptal ?Hypokinetic ? Ewing-Septal ? Hypokinetic ? Ewing-Anterior ? Hypokinetic ? Ewing-Lateral ?Hypokinetic ? Ewing-Inferior ? Hypokinetic ? Ewing-Tip ?Hypokinetic ? Chambers ?Value ?Units (Range) ? [...] 01/23/2014 16:34:37 Images reviewed and interpretation verified [facility] Cardiac Ultrasound Laboratory Procedure Note Lee Kincaid MD - 01/23/2014 Procedure: Transthoracic Echocardiogram Patient: KIRSTIE Mejias (Age): 1955(58) Med Rec#: [id number] Sex: F [place] Loc[place] [facility] Ht / Wt: 158(cm)/93(kg) Pt. Loc: Adult Floor BSA: 2.02 Study Date: 01/23/2014 Pt. Type: Inpatient Tape: Referring: Lee Kincaid ([id number]) Referring: ANNALISA Head Of Commission Department: Miguel Beverly Diagnosis:CPT Code(s): Echo Full (47257), Spectral Doppler (37095), Color Doppler (55948), Indication(s): Aortic stenosis Rhythm: Sinus HR BP [...] Hypokinetic Mid-Posterolateral Hypokinetic Mid-Inferior Hypokinetic Mid-Inferoseptal Hypokinetic Ewing-Septal Hypokinetic Ewing-Anterior Hypokinetic Ewing-Lateral Hypokinetic Ewing-Inferior Hypokinetic Ewing-Tip Hypokinetic Chambers Value Units (Range) IVSd 2D [...] 01/23/2014 16:34:37 Images reviewed and interpretation verified [facility] Cardiac Ultrasound Laboratory Lee Kincaid MD ECHO ORDERABLES documented in this encounter Visit Diagnoses Diagnosis SOB (shortness of breath)- Primary Shortness of breath documented in this encounter Care Teams Motor Expert Relationship Specialty Start Date End Date Danni Laird APRN [address] [place] [address] PCP - General 01/23/14 11/11/14 documented as of this encounter
--- OUTSIDE RECORDS SUMMARY | 2024-06-15 14:15 | XMS_ITS | Encounter Summary ---
Author Organization [facility] Address [place] [address] Care Team Providers Care Lead Quality Technician Name Role Phone Deborah Quiroga APRN Primary Care Provider [phone] [phone] Encounter Details Date Type Department Care Team (Latest Contact Info) Description 05/19/2016 11:52 AM EDT - 05/19/2016 11:59 PM EDT Hospital Encounter XRay at [address] [place] [address] Alirio Esparza MD Nonrheumatic aortic valve stenosis [...] EST Office Visit [place] [address] Markel Borjas MD [facility] [address] [place] [address] 11/02/2024 12:00 PM EDT [place]oint[place] [address] 11/02/2024 1:00 PM EDT Office [place] [address] Magdalena Peralta MD [facility] [place] [address] 03/01/2025 4:15 PM EDT Office Visit Dermatology at [address] [place] [phone] Marek Bonilla MD [address], [place] [address] documented as of this encounter Procedures Procedure [...] disorders documented in this encounter Care Teams Lead Quality Technician Relationship Specialty Start Date End Date Deborah Quiroga, ANURAG PCP - General Family Medicine 03/24/16 02/04/23 documented as of this encounter
[2024-06-20 15:48] VITALS: BP 130/57; PULSE 85
--- OUTSIDE RECORDS SUMMARY | 2024-06-20 15:48 | XMS_ITS | Encounter Summary ---
Author Organization [facility] Address [address] [place] [address] Care Team Providers Care Probation Counselor Name Role Phone Unavailable Primary Care Provider Unavailabl e Encounter Details Date Type Department Care Team (Late st Contact Info) Description 03/24/2007 Results Only [facility] Non-Invasive Cardiology - [facility] [address] [place], [place] [address] Ashley Chavez, WILLIAM [address] [place] [address] Social History Tobacco Use Types Packs/Day Years [...] ? PURNIMA THACKER ? Accession #: ? [id number] : ? 1955 (Age: 51) ??F ?Collect Date: ? 03/24/2007 Location: ? [facility] ? Receive Date: ? 03/28/2007 Provider: ?ASHLEY THOMAS Copy to: ? Specimen/Source: ?ThinPrep Pap Test, Endocervix, processed on [employer] ThinPrep Imaging System, with manual evaluation Last [...] ORDERABLES Final Res ult PAUL ARELLANO [address] [place] [address] documented in this encounter Visit Diagnoses Not on filedocumented in this encounter
--- OUTSIDE RECORDS SUMMARY | 2024-06-20 15:48 | XMS_ITS | Encounter Summary ---
Author Organization [facility] Address [address] [place] [address] Care Team Providers Care Power Plant Electrician Name Role Phone Unavailable Primary Care Provider Unavailabl e Encounter Details Date Type Department Care Team (Late st Contact Info) Description 07/08/2010 Results Only [facility] Non-Invasive Cardiology - [facility] [address] [place] [address] Ashley Chavez, WILLIAM [address] [place] [address] Social History Tobacco Use Types Packs/Day Years [...] ? PURNIMA THACKER ? Accession #: ? [id number] ? : ? 1955 (Age: 54) ??F [...] ORDERABLES Final Res ult PAUL ARELLANO [address] [place] [address] documented in this encounter Visit Diagnoses Not on filedocumented in this encounter
--- OUTSIDE RECORDS SUMMARY | 2024-06-20 15:48 | XMS_ITS | Encounter Summary ---
Author Organization [facility] Address [address] [place] [address] Care Team Providers Care Livestock Broker Name Role Phone Scott, Ashley WILLIAM Primary Care Provider [phone] Encounter Details Date Type Department Care Team (Late st Contact Info) Description 03/21/2024 Lab Requisition [facility] Pathology & Laboratory Medicine - [address] [address] Consuelo Guerrero, DO [address] [place], [place] [id number] Encounter for other general examination Social History [...] LORY Negative 03/21/2024 22:[address] [facility] BLOOD BANK Blood VENOUS BLOOD / Unknown 03/21/2024 13:00 EDT 03/21/2024 21:51 EDT us Consuelo Guerrero DO BLOOD BANK TESTS Final Result Performing Organization Address City/State/[facility] Co de Phone Number [facility] BLOOD BANK [address] [place] [address] documented in this encounter Visit Diagnoses Diagnosis Encounter for other general examination documented in this encounter Care Teams Livestock Broker Relationship Specialty Start Date End Date Ashley Chavez ARNP [address] [place] [address] PCP - General 07/11/10 documented as of this encounter
--- OUTSIDE RECORDS SUMMARY | 2024-06-20 15:48 | XMS_ITS | Encounter Summary ---
Author Organization [facility] Address [address] [place] [address] Care Team Providers Care Bench Boring Machine Operator Name Role Phone Ashley Chavez Primary Care Provider [phone] Encounter Details Date Type Department Care Team (Late st Contact Info) Description 04/29/2022 Lab Requisition [facility] Pathology & Laboratory Medicine - [address] [address] Outr Resulting Lab, Provider Social History Tobacco [...] 1.6 <20.0 Units 04/30/2022 12:23 EDT [facility] Comment: ? Negative: [...] OGY ORDERABLES Final Result Performing Organization Address [facility] de Phone Number [facility] [address] [place] [address] * SSA ANTIBODIES BY DOMO (04/29/2022 7:51 EDT) SSA Antibody 1.5 <20.0 Units 04/30/2022 12:22 EDT [facility] Comment: ? Negative: [...] OGY ORDERABLES Final Result Performing Organization Address [facility] de Phone Number [facility] [address] [place] [address] documented in this encounter Visit Diagnoses Not on filedocumented in this encounter Care Teams Bench Boring Machine Operator Relationship Specialty Start Date End Date Ashley Chavez ARNP [address] [place] [address] PCP - General 07/11/10 documented as of this encounter
--- OUTSIDE RECORDS SUMMARY | 2024-06-20 15:48 | XMS_ITS | Encounter Summary ---
Author Organization [facility] Address [address] [place] [address] Care Team Providers Care Hand Collator Name Role Phone Ashley Chavez Primary Care Provider [phone] Encounter Details Date Type Department Care Team (Late st Contact Info) Description 05/12/2022 Lab Requisition [facility] Pathology & Laboratory Medicine - [address] [id number] Outr Resulting Lab, Provider Social History Tobacco [...] 14:32 EDT) Hold Hold 05/12/2022 22:46 EDT [facility] Blood VENOUS BLOOD / Unknown 05/12/2022 14:32 EDT 05/12/2022 21:40 EDT us Provider Outr Resulting Lab LAB INFO SERVICE AND SUPPORT & PHONE RESULT Final Result Performing Organization Address [facility] Co de Phone Number [facility] [address] [place] [address] * (ABNORMAL) HOMOCYSTEINE (05/12/2022 14:32 EDT) Homocysteine 14.7(H) 5.0 - 13.9 umol/L 05/13/2022 9:05 EDT [facility] Comment:Results may be false ly elevated if sample is not collected on ice or is not removed from cells within 1 hour of collection. Blood VENOUS BLOOD / Unknown 05/12/2022 14:32 EDT 05/12/2022 21:40 EDT Narrative [facility] - 05/13/2022 9:05 EDT [...] S ORDERABLES Final Result Performing Organization Address [facility] Co de Phone Number [facility] [address] [place] [address] * HAPTOGLOBIN (05/12/2022 14:32 EDT) Haptoglobin 138 32 - 197 mg/dL 05/13/2022 9:55 EDT [facility] Blood VENOUS BLOOD / Unknown 05/12/2022 14:32 EDT 05/12/2022 21:36 EDT us Provider Outr Resulting Lab CHEMISTRY & BLOOD GA S ORDERABLES Final Result Performing Organization Address [facility]/State/ZIP Co de Phone Number [facility] [address] [place] [address] * (ABNORMAL) ANTI NUCLEAR AB (FRANCISCO), IFA (05/12/2022 14:32 EDT) FRANCISCO Interpretation Positive(A) Negative 05/13/2022 14:44 EDT [facility] Comment: Result is equal to or greater than 1:5120. For titers greater than or equal to 1:160 (except the centromere, nucleolar, and dense fine speckled patterns) it is recommended that specific, follow-up autoantibody testing (such as for dsDNA and Extractable Nuclear Antigens) be performed on all diffuse and/or speckled patterns. FRANCISCO Titer and Pattern 1 1:5120 Speckled 05/13/2022 14:44 EDT [facility] Blood VENOUS BLOOD / Unknown 05/12/2022 14:32 EDT 05/12/2022 21:36 EDT Narrative [facility] - 05/13/2022 14:44 EDT Results were obtained with the IN[employer] NOVA Lite HEp-2 FRANCISCO Kit by indirect immunofluorescence. us Provider Outr Resulting Lab IMMUNOLOGY AND SEROL OGY ORDERABLES Final Result [facility] [address] [place] [address] documented in this encounter Visit Diagnoses Not on filedocumented in this encounter Care Teams Hand Collator Relationship Specialty Start Date End Date Ashley Chavez ARNP [facility] [place] [address] PCP - General 07/11/10 documented as of this encounter
--- OUTSIDE RECORDS SUMMARY | 2024-06-20 15:48 | XMS_ITS | Encounter Summary ---
Author Organization [facility] Address [address] [place] [address] Care Team Providers Care Shoe Cleaner Name Role Phone Ashley Chavez Primary Care Provider [phone] Encounter Details Date Type Department Care Team (Late st Contact Info) Description 01/07/2023 Lab Requisition [facility] Pathology & Laboratory Medicine - [address] [address] Outr Resulting Lab, Provider Social History Tobacco [...] 56.2 55.8 - 66.1 % 01/08/2023 11:28 [facility] Albumin g/dL 3.9 3.6 - 5.2 g/dL 01/08/2023 11:28 [facility] Alpha-1 % 5.1(H) 2.9 - 4.9 % 01/08/2023 11:28 [facility] Alpha-1 g/dL 0.40 0.15 - 0.40 g/dL 01/08/2023 11:28 [facility] Alpha-2 % 7.0(L) 7.1 - 11.8 % 01/08/2023 11:28 [facility] Alpha-2 g/dL 0.50 0.50 - 1.00 g/dL 01/08/2023 11:28 [facility] Beta % 12.7 8.4 - 13.1 % 01/08/2023 11:28 [facility] Beta g/dL 0.90 0.60 - 1.20 g/dL 01/08/2023 11:28 [facility] Gamma % 19.0(H) 11.1 - 18.8 % 01/08/2023 11:28 [facility] Gamma g/dL 1.30 0.60 - 1.60 g/dL 01/08/2023 11:28 [facility] SPEP Comment No apparent monoclonal protein seen on serum electrophoresis 01/08/2023 11:28 [facility] Comment:See scanned/suppleme ntary report. Total Protein 6.9 6.3 - 8.2 g/dL 01/08/2023 11:28 [facility] Blood VENOUS BLOOD / Unknown 01/06/2023 14:40 EDT 01/07/2023 17:37 EDT us Provider Outr Resulting Lab CHEMISTRY & BLOOD GA S ORDERABLES Final Result Performing Organization Address [facility] de Phone Number [facility] [address] [place] [address] * PROTEIN, TOTAL (01/06/2023 14:40 EDT) Blood VENOUS BLOOD / Unknown 01/06/2023 14:40 EDT 01/07/2023 17:37 EDT us Provider Outr Resulting Lab CHEMISTRY & BLOOD GA S ORDERABLES Final Result Performing Organization Address [facility] de Phone Number [facility] [address] [place] [address] * (ABNORMAL) EXTRACTABLE NUCLEAR ANTIGEN PANEL (01/06/2023 14:40 EDT) SSA Antibody 1.3 <20.0 Units 01/08/2023 15:42 EDT [facility] Comment: ? Negative: <20.0 Units ? Weak Positive: 20.0 - 39.9 Units ? Moderate Positive: 40.0 - 80.0 Units ? Strong Positive: >80.0 Units Results were obtained with the [employer] QUANTA Lite SS-A DOMO. ??SS-A values obtained with different manufacturers' assay methods may not be used interchangeably. ??The magnitude of the reported IgG levels cannot be correlated to an endpoint titer. SSB Antibody 1.5 <20.0 Units 01/08/2023 15:42 EDT [facility] Comment: ? Negative: <20.0 Units ? Weak Positive: 20.0 - 39.9 Units ? Moderate Positive: 40.0 - 80.0 Units ? Strong Positive: >80.0 Units Results were obtained with the [employer] QUANTA Lite SS-B DOMO. ??SS-B values obtained with different manufacturers' assay methods may not be used interchangeably. ??The magnitude of the reported IgG levels cannot be correlated to an endpoint titer. SM (Moreno) Antibody 15.3 <20.0 Units 01/08/2023 15:42 EDT [facility] [...] cannot be correlated to an endpoint titer. COMPUTED TOMOGRAPHY TECHNOLOGIST Antibody 149.1(H) <20.0 Units 01/08/2023 15:42 [facility] Comment: ? Negative: <20.0 Units ? Weak Positive: 20.0 - 39.9 Units ? Moderate Positive: 40.0 - 80.0 Units ? Strong Positive: >80.0 Units Results were obtained with the [employer] Quanta Lite COMPUTED TOMOGRAPHY TECHNOLOGIST DOMO. COMPUTED TOMOGRAPHY TECHNOLOGIST values obtained with different loader technician's assay methods may not be used interchangeaby. ??The magnitude of the reported IgG levels cannot be be correlated to an endpoint titer. A positive result in the Quanta Lite COMPUTED TOMOGRAPHY TECHNOLOGIST DOMO indicates the presence of antibodies reactive with the COMPUTED TOMOGRAPHY TECHNOLOGIST/Sm complex but cannot distinguish between anti-Sm and anti-COMPUTED TOMOGRAPHY TECHNOLOGIST activity. Blood VENOUS BLOOD / Unknown 01/06/2023 14:40 EDT 01/07/2023 17:37 EDT us Provider Outr Resulting Lab IMMUNOLOGY AND SEROL OGY ORDERABLES Final Result [facility] [address] [place] [address] * (ABNORMAL) ANTI NUCLEAR AB (FRANCISCO), IFA (01/06/2023 14:40 EDT) FRANCISCO Interpretation Positive(A) Negative 01/08/2023 15:22 EDT [facility] Comment: Result is equal to or greater than 1:5120. For titers greater than or equal to 1:160 (except the centromere, nucleolar, and dense fine speckled patterns) it is recommended that specific, follow-up autoantibody testing (such as for dsDNA and Extractable Nuclear Antigens) be performed on all diffuse and/or speckled patterns. FRANCISCO Titer and Pattern 1 1:5120 Speckled 01/08/2023 15:22 EDT [facility] Blood VENOUS BLOOD / Unknown 01/06/2023 14:40 EDT 01/07/2023 17:37 EDT Narrative [facility] - 01/08/2023 15:22 EDT Results were obtained with the [employer] NOVA Lite HEp-2 FRANCISCO Kit by indirect immunofluorescence. us Provider Outr Resulting Lab IMMUNOLOGY AND SEROL OGY ORDERABLES Final Result [facility] [address] [place] [address] documented in this encounter Visit Diagnoses Not on filedocumented in this encounter Care Teams Shoe Cleaner Relationship Specialty Start Date End Date Ahsley Chavez ARNP [address] [place] [address] PCP - General 07/11/10 documented as of this encounter
--- OUTSIDE RECORDS SUMMARY | 2024-06-20 15:48 | XMS_ITS | Clinical Summary ---
Author Organization [facility] Address [facility] [place] [address] Care Team Providers Care Teacher Citizenship Name Role Phone Magdalena Acosta MD Primary Care Provider [phone] Allergies No known active allergies Medications Medication [...] fraction 05/08/2023 Mild coronary artery disease by [facility] 11/09/2022 Heart failure with reduced [...] Encounters Date Type Department Care Team Description 06/16/2024 Travel 06/05/2024 2:00 PM EST - 06/05/2024 3:00 PM EST Surgery [place] [address] Markel Borjas MD [place] [place] [facility] BONE MARROW BIOPSY AND ASPIRATION; DIAGNOSTIC (WRVU 1.44) 06/05/2024 1:04 PM EST - 06/05/2024 3:08 PM EST Hospital Encounter [place]patient [place] [phone] Markel Brojas MD Discharge Disposition: Home 06/01/2024 10:00 AM EDT Office Visit Rheumatology at [place] [phone] Magdalena Peralta MD Mixed connective tissue disease 05/31/2024 Travel 05/24/2024 Refill Internal Medicine at [place] [phone] Magdalena Peralta MD 05/18/2024 Interpretation Only [address] [address] Magdalena Acosta MD 05/18/2024 Interpretation Only [address] [address] Magdalena Acosta MD 05/12/2024 10:00 AM EDT Office Visit Hematology [place] [address] Markel Borjas MD Chronic idiopathic neutropenia 05/12/2024 9:00 AM EDT Laboratory Appointment Lab at [facility] Hematology Oncology [address] [place], [place] [phone] S/P TAVR (transcatheter aortic valve replacement); Chronic idiopathic neutropenia 05/12/2024 Travel 05/10/2024 Travel 04/11/2024 Transcribe Orders eDH Incoming Referrals [phone] Consuelo Guerrero, Anemia, unspecified type from Last 3 Months [...] Office Visit Hematology [place] [phone] Markel Borjas MD [facility] [address] [place] [address] 11/02/2024 12:00 PM EDT Appointment [place] [phone] 11/02/2024 1:00 PM EDT Office [place] [address] Magdalena Peralta MD [facility] [place] [address] 03/01/2025 4:15 PM EDT Office Visit Dermatology at [address] [phone] Marek Bonilla MD [facility], [place] [address] Health Maintenance Due Date Last Done Comments [...] Share Decision Needed 1995 Advance Directive 2010 RSV Vaccine (1 - Risk 60-74 years 1-dose series) 2015 Covid-19 Vaccine (1 - 2023-2 5 season) 2024 Influenza (Flu) vaccine (1 o f 1 - Influenza standard series) 04/02/2024 05/22/2023, 05/18/2016 Breast Cancer screening 05/18/2026 05/18/20 24, 06/05/2021, 06/05/2021 Diabetes Screening (HgbA1C o r Glucose) 05/12/2027 05/12/2024, 07/08/2023, 05/22/2023, Additional history exists Bone Density Scan 05/18/2039 05/18/2024, 06/05/2021 Medical Devices Implanted Type Area Recreational Assistant Device Identifier Shelf Expiration Date Model / Serial / Lot Valve,Aor,Pericar d,Magna,25mm ([id number]) - [id number] Implanted:Qty: 1 on 09/21/2016 by Alirio Esparza MD at [facility] IMPLANTS N/A: Heart DO NOT USE Smish - [id number] 06/02/2020 [id number] / / [id number] Cable,Blnt,Ss,38i n ([id number]) - [id number] Implanted:Qty: 4 on 09/21/2016 by Alirio Esparza MD at [facility] IMPLANTS N/A: Chest [employer] - [id number] 04/29/2021 [id number] / / [id number] Patch,Cav,Pericar d,2x5cm ([id number]) (Autoreq) - [id number] Implanted:Qty: 1 on 09/21/2016 by Alirio Esparza MD at [facility] IMPLANTS N/A: Heart DO NOT USE [employer] - [id number] 04/21/2018 [id number] / / [id number] Tavr-05/12/2023 Implanted:Qty: 1 on 05/12/2023 by Antelmo Sharma MD Other Heart [employer] - [place] LI [id number] / [id number] / Description:[employer] NCES ABBY 3 ULTRA [...] EST Diagnostic Bone Marrow Biopsies & Aspirations (49143) 06/05/2024 2:03 PM EST Anemia, in pt [...] PM EST 06/05/2024 3:07 PM EST Narrative [facility] - 06/06/2024 10:47 AM EST ~3ml Markel Borjas MD PATHOLOGY/CYTOLOGY ORDERABLES Performing Organization Address [facility] Co de Phone Number [facility] [place] [address] * BM HOLD FLOW/MOLECULAR (06/05/2024 2:22 PM EST) Bone Marrow Non Blood Collection / Unknown 06/05/2024 2:22 PM EST 06/05/2024 3:07 PM EST Markel Borjas MD PATHOLOGY/CYTOLOGY ORDERABLES Performing Organization Address City/[facility]/ZIP Co de Phone Number [facility] [place] [address] * Bone Marrow (06/05/2024 2:22 PM EST) Case Report Bone Marrow Patholog y Report ?Case: [id number] ? Authorizing Provider: ??Indio, Markel R, MD ?Collected: ? 06/05/2024 1422 ? Ordering Location: ? [facility]patient Surgery Center ??Received: ?06/05/2024 1508 ? Maria Luz [facility] ? Hospital ? Pathologist: ? Citlaly, Georges [...] in toto in 1 cassette labeled C1. [facility] 4 1:[address] [facility] [...] and other diagnostic tests. 4 1:[address] [facility] Bone [...] present, no ring sideroblasts. 4 1:[address] [facility] Bone [...] bone normal for age. 1:36 PM EST [facility] Bone Marrow Differential Band/Seg 34%; Lymph 8%; [place] 0%; Eos 2%; Baso 1%; Metamyelocyte 13%; Myelocyte 9%; Promyelocyte 2%; Blast 1%; nRBC's 27%; Plasma cell 3% 1:36 PM EST [facility] Result Note Routine 1:[address] [facility] Peripheral Blood Morphology RBCs: Mildly macrocytic anemia with rare target cells, ovalocytes. WBCs: Unremarkable. Platelets: Rare large platelet form present. 1:36 PM EST [facility] STRUCTURE OF LEFT ILIAC CREST / Unknown 06/05/2024 2:22 PM EST 06/05/2024 3:08 PM EST STRUCTURE OF LEFT ILIAC CREST / Unknown 06/05/2024 2:22 PM EST 06/05/2024 3:08 PM EST STRUCTURE OF LEFT ILIAC CREST / Unknown 06/05/2024 2:22 PM EST 06/05/2024 3:08 PM EST Markel Borjas MD PATHOLOGY/CYTOLOGY ORDERABLES [facility] [place] [address] * Chromosome Analysis, Acquired ([facility]) (06/05/2024 2:22 PM EST) Chromosome, Leukemia/Lymph ananya ([facility]) See Scanned Result 06/14/2024 6:28 PM EST REF [facility] Specimen Condition ([facility]) 06/14/2024 6:28 PM EST REF [facility] Bone Marrow Non Blood Collection / Unknown 06/05/2024 2:22 PM EST 06/05/2024 3:07 PM EST Georges Boucher MD LAB SEND OUT ORDERAB LES REF [facility] [address] [place] [address] * DH HemeSeq (Bone Marrow) (06/05/2024 2:22 PM EST) NGS Report Status Normal 06/13/2024 10:21 AM EST [facility] Bone Marrow Non Blood Collection / Unknown 06/05/2024 2:22 PM EST 06/05/2024 3:07 PM EST Georges Boucher MD MOLECULAR ORDERABLES Performing Organization Address City/[facility]/ZIP Co de Phone Number [facility] [place] [address] * Immunophenotyping Flow Cytometry (06/05/2024 2:22 PM EST) Pathologist [facility] Final Diagnosis - No monotypic [...] 06/06/2024 2:[address] [facility] [place]:Lambda Ratio 1.8 06/06/2024 2:[address] [facility] CD4:CD8 Ratio 1.6 06/06/2024 2:08 [...] by the Clinical Flow Cytometry Laboratory at [facility]. It has not been cleared or approved [...] EST Georges Boucher MD HEMATOLOGY ORDERABLE S [facility] [place] [address] * Myelodysplastic Syndrome (MDS) FISH Panel (06/05/2024 2:22 PM EST) Specimen Condition adequate 06/08/2024 11:[address] [facility] Indication for Study Anemia, in [...] [facility] ISCN Nomenclature nuc josselin(D5S23,EGR1)x2[ 200],(D7Z1,V7Y023) x2[200],(D8Z2,D20S 108)x2[200] 06/08/2024 11:[address] [facility] Culture Type Direct [place] 06/08/20 11:[address] [facility] [...] analysis using probes for CEP7/D7Z1/7p11.1q1 1.1 and Y0A893/7q31 loci ([employer] shows 1.5% and 0% of 200 cells with 7q signal deletion (7q-) and chromosome 7 signal loss (monosomy 7) patterns, respectively. These are within acceptable reference limits (7q deletion: 0-6.3%; monosomy 7: 0-4.4%). Thus, there is no evidence for 7q deletion and monosomy 7. Interphase FISH analysis using probes for CEP8/D8Z2/8p11.1q1 1.1 and G90E147/20q12 loci ([employer] shows 0% and [...] The FISH probes are directly-labeled by the marketing designer (Ludia or [employer]) with either a spectrum orange, green, or aqua fluorochrome. Cells are stained with DAPI (Ludia), visualized through fluorescence microscopy, and images captured on the CytoVision software ([employer]). Results are reported based on an International System for Human Cytogenomic Nomenclature. 06/08/2024 11:[address] [facility] Limitations & Disclaimers The FISH test was developed and its performance characteristics were determined by the [facility] ([facility]) Cytogenetics Laboratory as required by The Clinical [...] verified the test's accuracy and precision. The [facility] Cytogenetics Laboratory is certified under the CLIA'88 as qualified to perform high complexity clinical laboratory testing. Chromosome alterations outside the regions complementary to these DNA FISH probes will not be detected. 06/08/2024 11:[address] [facility] Sign-out by Professional component performed by Lizette Bullock, Ph.D., [facility], [facility] [address], [place], [place] (CLIA #: [id number]). 06/08/2024 11:[address] [facility] Bone Marrow Non Blood Collection / Unknown 06/05/2024 2:22 PM EST 06/05/2024 3:07 PM EST Georges Boucher MD MOLECULAR ORDERABLES Performing Organization Address City/State/[facility] Co de Phone Number [facility] [place] [address] * (ABNORMAL) CBC (with Diff) (06/05/2024 1:45 PM EST) Only the most recent of2 resultswithin the time period is included. White Blood Cell 3.06(L) 4.00 - 9.50 x10(3)/mc L 06/05/2024 2:38 PM EST [facility] Red Blood Cell 3.35(L) 4.00 - 5.21 x10(6)/mc L 06/05/2024 2:[address] [facility] Hemoglobin 11.0(L) 11.7 - 15.5 g/dL 06/05/2024 2:[address] [facility] Hematocrit 33.4(L) 35.7 - 45.8 % 06/05/2024 2:[address] [facility] Mean Cell Volume 99.7(H) 82.6 - 94.4 fL 06/05/2024 2:[address] [facility] Mean Cell Hemoglobin 32.8(H) 27.1 - 32.0 pg 06/05/2024 2:[address] [facility] Mean Cell Hemoglobin Concentration 32.9 31.7 - 35.0 g/dL 06/05/2024 2:[address] [facility] Platelet 151 145 - 357 x10(3)/mc L 06/05/2024 2:[address] [facility] Mean Platelet Volume 8.9 7.6 [...] % 15.0 % 06/05/2024 2:38 PM EST [facility] Monocyte Absolute 0.46 0.30 - 0.90 x10(3)/mc L 06/05/2024 2:38 PM EST [facility] Eos % 0.3 % 06/05/2024 2:[address] [facility] Eos Absolute <0.04 0.00 - 0.40 x10(3)/mc L 06/05/2024 2:38 PM EST [facility] Basophil % 0.7 % 06/05/2024 2:38 PM EST [facility] Baso Absolute <0.04 0.00 - 0.10 x10(3)/mc L 06/05/2024 2:38 PM EST [facility] Immature Gran % 0.3 % 2:[address] [facility] Immature Gran Absolute <0.04 0.00 - 0.04 x10(3)/mc L 06/05/2024 2:38 PM EST [facility] Blood VENOUS BLOOD SPECIMEN / Unknown Venipuncture / Unknown 06/05/2024 1:45 PM EST 06/05/2024 1:59 PM EST Markel Borjas MD HEMATOLOGY ORDERAB LES [facility] [place] [address] * DXA Central Spine, Hip, and/or Whole Body (Generic) (05/18/2024 11:21 AM EDT) PT CLASS O RAD ADMITDTTM [id number] RAD PT RAD INFO [id number]^Dave ^Magdalena RAD EXAM DESC XDXAC^BD Bone Density DEXA Axial Skeleton^RIS [facility] WORKSTATION ID RADDRIMAGE RAD Anatomical [...] who have questions please contact the health urgent care technician that requested your imaging first. ? Electronically signed by: Rocael Villatoro MD, [facility] ([phone]), at 05/18/2024 11:25 AM Narrative 05/18/2024 11:25 [...] patients who have questions please contactthe health urgent care technician that requested your imaging first. Electronically signed by: Rocael Villatoro MD, [facility]([phone]), at 05/18/2024 11:25 AM Magdalena Acosta MD IMG DEXA ORDERABLES * MAMMO SCREENING CAD BILATERAL (CH) (05/18/2024 11:21 AM EDT) PT CLASS O RAD ADMITDTTM [id number] RAD PT RAD INFO [id number]^Dave ^Magdalena RAD EXAM DESC MADDSCCH^MG Mammo Digital [...] who have questions please contact the health urgent care technician that requested your imaging first. ? Electronically signed by: Rocael Villatoro MD, [facility] ([phone]), at 05/18/2024 3:[address] ??[address] Narrative 05/18/2024 3:05 PM EDT EXAMINATION: MG [...] patients who have questions please contactthe health urgent care technician that requested your imaging first. [address] [address] Magdalena Acosta MD PACS IMAGES * Reticulocyte Count (05/12/2024 8:56 AM EDT) Reticulocyte % 1.20 0.70 - 2.50 % 05/12/2024 9:32 AM EDT [facility] Retic Abs # 0.0397 0.0200 - 0.1100 x10(6)/mcL 05/12/2024 9:32 AM EDT [facility] Immature Retic% 8.1 0.5 - 13.8 % 05/12/2024 9:32 AM EDT [facility] Reticulated Hgb 35.2 29.8 - 39.4 pg 05/12/2024 9:32 AM EDT [facility] Blood VENOUS BLOOD SPECIMEN / Unknown Venipuncture / Unknown 05/12/2024 8:56 AM EDT 05/12/2024 8:56 AM EDT Tova Russell COASTAL TUG MATE HEMATOLOGY ORDERABL ES [facility] [place] [address] * (ABNORMAL) Comprehensive metabolic panel Non-fasting (05/12/2024 8:56 AM EDT) Glucose 86 65 - 199 mg/dL 05/12/2024 11:36 AM EDT [facility] Comment:Glucose Concentratio n >=200 mg/dL plus symptoms is consistent with Diabetes Mellitus. Blood Urea Nitrogen 20(H) 8 - 18 mg/dL 05/12/2024 11:36 AM EDT [facility] Creatinine 0.88 0.70 - 1.20 [...] Fasting Status No 05/12/2024 11:36 AM EDT [facility] Blood VENOUS BLOOD SPECIMEN / Unknown Venipuncture / Unknown 05/12/2024 8:56 AM EDT 05/12/2024 8:56 AM EDT Tvoa Russell COASTAL TUG MATE CHEMISTRY ORDERABLE S [facility] [place] [address] from Last 3 Months Advance Directives * [...] capacity to make decision: Yes Care Teams Teacher Citizenship Relationship Specialty Start Date End Date Magdalena Acosta MD [address] [place] [address] PCP - General Family Medicine 02/05/23
--- OUTSIDE RECORDS SUMMARY | 2024-06-20 15:48 | XMS_ITS | Encounter Summary ---
Author Organization [facility] Address [address] [place] [address] Care Team Providers Care Curbing Stonecutter Name Role Phone Unavailable Primary Care Provider Unavailabl e Encounter Details Date Type Department Care Team (Late st Contact Info) Description 03/24/2007 11:06 EDT - 03/24/2007 11:59 EDT Hospital Encounter [facility] - Other [address] [place] [address] Ashley Chavez ARNP [address] [place] [address] Discharge Disposition: Home or Self Care Social [...]
--- OUTSIDE RECORDS SUMMARY | 2024-06-20 15:48 | XMS_ITS | Encounter Summary ---
Author Organization [facility] Address [address] [place] [address] Care Team Providers Care District Branch Manager Name Role Phone Unavailable Primary Care Provider Unavailabl e Encounter Details Date Type Department Care Team (Late st Contact Info) Description 04/20/2005 Results Only [facility] [address] [place] [address] Ziggy Valiente MD [address] [place] [address] Social History Tobacco Use Types Packs/Day [...] ? PURNIMA THACKER ? Accession #: ? [id number] ? : ? 1955 (Age: 49) ??F [...] correlation with endoscopic appearance is recommended. (Dr. Chino)/[facility] Document reviewed and electronically signed by: [...] is entirely submitted in one cassette. ??(Arabella Santos)/[facility] End of Report [facility] 04/20/2005 04/21/2005 15: 04 EDT us Ziggy Valiente MD PATHOLOGY ORDERABLES Final Resul t [facility] [address] [place] [address] documented in this encounter Visit Diagnoses Not on filedocumented in this encounter
--- OUTSIDE RECORDS SUMMARY | 2024-06-20 15:48 | XMS_ITS | Encounter Summary ---
Author Organization [facility] Address [facility] [place] [address] Care Team Providers Care Boarding House Cook Name Role Phone Magdalena Acosta MD Primary Care Provider [phone] Encounter Details Date Type Department Care Team (Latest Contact Info) Description 06/16/2024 Travel Social History Tobacco Use Types Packs/Day [...] EST Office Visit H[place]ology [place] [address] Markel Borjas MD [facility] [address] [place] [address] 11/02/2024 12:00 PM EDT [place] [phone] 11/02/2024 1:00 PM EDT Office [place] [address] Magdalena Peralta MD [facility] [place] [address] 03/01/2025 4:15 PM EDT Office Visit Dermatology at [place] [address] [place] [phone] Marek Bonilla MD [address], [place] [address] documented as of this encounter Visit Diagnoses Not on filedocumented in this encounter Care Teams Boarding House Cook Relationship Specialty Start Date End Date Magdalena Acosta MD [address] [place] [address] PCP - General Family Medicine 02/05/23 documented as of this encounter
--- OUTSIDE RECORDS SUMMARY | 2024-06-20 15:48 | XMS_ITS | Encounter Summary ---
Author Organization [facility] Address [address] [place] [address] Care Team Providers Care Tearoom Host/Hostess Name Role Phone Scott, Ashley WILLIAM Primary Care Provider [phone] Encounter Details Date Type Department Care Team (Late st Contact Info) Description 06/23/2016 Results Only [facility] [phone] Matthew Acevedo, DO [address] [facility] [address] [address] Social History Tobacco Use Types [...] ? PURNIMA THACKER ? Accession #: ? [id number] : ? 1955 (Age: 60) ??F ?Collect Date: ? 06/23/2016 Location: ? [facility] ? Receive Date: ? 06/24/2016 Provider: ? MATTHEW ACEVEDO DO Copy to: ?WNITER HANKINS CAUL PULLER MARIO ALBERTO GATES MD ? INTERPRETATION: Normal [...] ??400 ?? KARYOTYPE: 46,XX[25] End of Report [facility] 06/23/2016 06/24/2016 Matthew Acevedo DO PATHOLOGY ORDERABLES Fi nal Result [facility] [address] [place] [address] * FLOW CYTOMETRY (06/23/2016 0:00 EST) Pathology Report: FLOW CYTOMETRY REPORT Reports generated via electronic interface contain original data; however they are lacking the format of the original report. Caution should be taken when reading/interpreting unformatted reports. Name: ? PURNIMA THACKER ? Accession #: ? [id number] : ? 1955 (Age: 60) ??F ?Collect Date: ? 06/23/2016 00:00 Location: ? [facility] ? Receive Date: ? 06/24/2016 08:00 Provider: ?MATTHEW KRISTINA DO Copy to: ?WINTER HANKINS CAUL PULLER MARIO ALBERTO RAMOS MD ? FINAL IMMUNOPHENOTYPIC INTERPRETATION: ? Bone marrow, flow cytometric analysis: -No immunophenotypic evidence of a clonal cell population. ??See comment. ? COMMENT: The results of flow cytometry show no immunophenotypic evidence of involvement by a clonal lymphoproliferative or myeloproliferative disorder. ??Correlation of these findings with morphologic and clinical data is essential. ??Please refer to pathology report number [id number] for morphologic details. ? Document reviewed and [...] the Department of Pathology and Laboratory Medicine, [place], [place] ??It has not been cleared or [...] clinical laboratory testing. End of Report ?? [facility] 06/23/2016 06/24/2016 8:0 0 EST Matthew Acevedo DO PATHOLOGY ORDERABLES Fi nal Result Performing Organization Address City/State/[facility] Co de Phone Number [facility] [address] [place] [address] * BONE MARROW/HEMPATH CONSULT (06/23/2016 0:00 EST) Pathology Report: BONE MARROW REPORT Reports generated via electronic interface contain original data; however they are lacking the format of the original report. Caution should be taken when reading/interpreting unformatted reports. Name: ? ANDREW PURNIMA Magalie ? Accession #: ? [id number] : ? 1955 (Age: 60) ??F ?Collect Date: ? 06/23/2016 Location: ? [facility] ? Receive Date: ? 06/24/2016 Provider: ? MATTHEW ACEVEDO DO Copy to: ?WINTER HANKINS CAUL PULLER MARIO ALBERTO RAMOS MD ? DIAGNOSIS: Peripheral [...] #1: Aggregate biopsy length: 8 mm with seating captain trabeculae of lamellar bone, cellular bone marrow, [...] SEE ABOVE DISCUSSION Lambda (polyclonal, Dako) ??(B1): Micco (polyclonal, Dako) ??(B1): Biopsy (decalcified) #2: Aggregate biopsy length: 8 mm with seating captain trabeculae of lamellar bone, cellular bone marrow, [...] (M115, Leica) ??(B2): Lambda (polyclonal, Dako) ??(B2): Micco (polyclonal, Dako) ??(B2): NOTE: ??One or more [...] ? 1% Blasts ?1% Special Studies Cytogenetics ([id number]): Pending. Flow Cytometry ([id number]): No immunophenotypic evidence of a clonal cell population. ? End of Report [facility] 06/23/2016 06/24/2016 us Matthew Acevedo DO PATHOLOGY ORDERABLES Fi nal Result [facility] [address] [place] [address] documented in this encounter Visit Diagnoses Not on filedocumented in this encounter Care Teams Tearoom Host/Hostess Relationship Specialty Start Date End Date Ashley Chavez ARNP [address] [place] [address] PCP - General 07/11/10 documented as of this encounter
--- OUTSIDE RECORDS SUMMARY | 2024-06-20 15:48 | XMS_ITS | Encounter Summary ---
Author Organization [facility] Address [address] [place] [address] Care Team Providers Care Euclid Operator Name Role Phone Scott, Ashley WILLIAM Primary Care Provider [phone] Encounter Details Date Type Department Care Team (Late st Contact Info) Description 05/12/2019 Results Only [facility] [phone] Nadira Gregorio MD [address] [place] [phone] Social History Tobacco Use Types Packs/Day [...] ? PURNIMA THACKER ? Accession #: ? [id number] ? : ? 1955 (Age: 63) ??F ? Collect Date: ? 05/12/2019 ? Location: ? [facility] ? Receive Date: ? 05/12/2019 ? Provider: NADIRA GREGORIO MD Copy to: WINTER HANKINS GROUT WORKER ? Final Pathologic Diagnosis: COLON, CECUM, [...] (ASCP) 05/12/2019 6:08 PM End of Report [facility] 05/12/2019 16:0 3 EDT 05/12/2019 16:03 EDT us Nadira Gregorio MD PATHOLOGY ORDERABLES Final Resul t [facility] [address] [place] [address] documented in this encounter Visit Diagnoses Not on filedocumented in this encounter Care Teams Euclid Operator Relationship Specialty Start Date End Date Ashley Chavez ARNP [address] [place] [address] PCP - General 12/10/10 documented as of this encounter
--- OUTSIDE RECORDS SUMMARY | 2024-06-20 15:48 | XMS_ITS | Encounter Summary ---
Author Organization [facility] Address [address] [place] [address] Care Team Providers Care Compliance Attorney Name Role Phone Ashley Chavez Primary Care Provider [phone] Encounter Details Date Type Department Care Team (Late st Contact Info) Description 12/17/2021 Lab Requisition [facility] Pathology & Laboratory Medicine - [address] [id number] Outr Resulting Lab, Provider Social History Tobacco [...] Lyme Ab Negative Negative 12/18/2021 10:37 EDT [facility] Blood VENOUS BLOOD / Unknown 12/17/2021 13:30 EDT 12/17/2021 21:32 EDT us Provider Outr Resulting Lab IMMUNOLOGY AND SEROL OGY ORDERABLES Final Result Performing Organization Address [facility] Co de Phone Number [facility] [address] [place] [address] * (ABNORMAL) ANTI NUCLEAR AB (FRANCISCO), IFA (12/17/2021 13:30 EDT) FRANCISCO Interpretation Positive(A) Negative 12/18/2021 16:06 EDT [facility] Comment: For titers [...] Pattern 1 1:1280 Speckled 12/18/2021 16:06 EDT [facility] Blood VENOUS BLOOD / Unknown 12/17/2021 13:30 EDT 12/17/2021 21:32 EDT Narrative [facility] - 12/18/2021 16:06 EDT Results were obtained with the INOVA NOVA Lite HEp-2 FRANCISCO Kit by indirect immunofluorescence. us Provider Outr Resulting Lab IMMUNOLOGY AND SEROL OGY ORDERABLES Final Result Performing Organization Address [facility] Co de Phone Number [facility] [address] [place] [address] documented in this encounter Visit Diagnoses Not on filedocumented in this encounter Care Teams Compliance Attorney Relationship Specialty Start Date End Date Ashley Chavez ARNP [address] [place], [place] [id number] PCP - General 07/11/10 documented as of this encounter
--- OUTSIDE RECORDS SUMMARY | 2024-06-20 15:48 | XMS_ITS | Encounter Summary ---
Author Organization [facility] Address [address] [place] [address] Care Team Providers Care Statistical Consultant Name Role Phone Scott, Ashley WILLIAM Primary Care Provider [phone] Encounter Details Date Type Department Care Team (Late st Contact Info) Description 12/23/2016 Results Only [facility] [phone] Deborah Quiroga, BONDACTOR MACHINE OPERATOR [address] [place] [phone] Social History Tobacco Use Types Packs/Day [...] ? PURNIMA THACKER ? Accession #: ? [id number] ? : ? 1955 (Age: 61) ??F ?Collect Date: ? 12/23/2016 ? Location: ? [facility] ? Receive Date: ? 12/25/2016 ? Provider: DEBORAH QUIROGA SHEET ROCK TAPER HELPER Copy to: ? Final Report SPECIMEN ADEQUACY ? Satisfactory for Evaluation - transformation zone component present GENERAL CATEGORIZATION ? Negative for Intraepithelial Lesion or Malignancy ?? Last Menstrual Period: years Specimen/Source: ??Pap Test, Cervix, ThinPrep Imaging System with manual evaluation Document reviewed and electronically signed by: ? Monica Cason, [facility](ASCP) ? Report ??Date: 01/06/2017 09:11 HPV with Pap Test ? Date Ordered: ? 01/06/2017 ? Status: ?? Signed Out ?Date Complete: ? 01/07/2017 ? By: ??System Interface ? Date Reported: ? 01/07/2017 ? Interpretation RESULT: Negative for HPV. No E6 or E7 mRNA is detected from HPV types 16,18,31,33,35, 39,45,51,52,56,58, 59,66, and 68 by immigration lawyer mediated amplification. Comments Document reviewed and electronically signed by: ? System Interface ? Report date: 01/07/2017 By the signature above, the attending physician certifies that he/she has personally conducted a gross and/or microscopic examination of the described specimens and rendered or confirmed the above diagnosis. End of Report [facility] 12/23/2016 12/25/2016 us Deborah Quiroga BONDACTOR MACHINE OPERATOR PATHOLOGY ORDERABLES Final Re sult [facility] [address] [place] [address] documented in this encounter Visit Diagnoses Not on filedocumented in this encounter Care Teams Statistical Consultant Relationship Specialty Start Date End Date Ashley Chavez ARNP [address] [place] [address] PCP - General 07/11/10 documented as of this encounter
--- OUTSIDE RECORDS SUMMARY | 2024-06-20 15:48 | XMS_ITS | Encounter Summary ---
Author Organization [facility] Address [address] [place] [address] Care Team Providers Care Fundraising Director Name Role Phone Unavailable Primary Care Provider Unavailabl e Encounter Details Date Type Department Care Team (Late st Contact Info) Description 07/08/2010 10:55 EST - 07/08/2010 10:56 EST Hospital Encounter [facility] - Other [address] [place] [address] Ashley Chavez, WILLIAM [address] [place] [id number] Discharge Disposition: Home or Self Care Social [...]
--- OUTSIDE RECORDS SUMMARY | 2024-06-20 15:48 | XMS_ITS | Encounter Summary ---
Author Organization [facility] [place] [address] Care Team Providers Care Steam Plant Records Clerk Name Role Phone Magdalena Acosta MD Primary Care Provider [phone] Encounter Details Date Type Department Care Team (Late st Contact Info) Description 06/05/2024 2:00 PM EST - 06/05/2024 3:00 PM EST Surgery [facility] [place] [address] Markel Borjas MD [facility] [address] [place] [address] (OSC MSURG) BONE MARROW BIOPSY AND ASPIRATION; [...] 5pm or on a weekend: Call the [facility] bonded strand operator at and ask for the physician monitor technician covering for your doctor. Instructions following sedation [...] drainage occurs, please [place] [address] [email or web address] [facility] documented in this encounter Medications at [...] topically 2 times daily as needed. 10/22/2022 [employer] Verio test strips Strip USE DAILY 01/03/2022 [employer] Delica Plus Lancet 33 gauge Misc USE [...] EST Office Visit Hematology [place] [address] Markel Borjas MD [facility] [address] [place] [address] 11/02/2024 12:00 PM EDT Appointment [place] [phone] 11/02/2024 1:00 PM EDT Office [place] [phone] Magdalena Peralta MD [facility] [place] [address] 03/01/2025 4:15 PM EDT Office Visit Dermatology at [place] [address] [place] [address] Marek Bonilla MD [address] [facility] [place] [address] documented as of this encounter Procedures Procedure [...] EST Diagnostic Bone Marrow Biopsies & Aspirations ([address]) 06/05/2024 2:03 PM EST Anemia, in pt with longstanding neutropenia CBC (WITH DIFF) Routine 06/05/2024 1:45 PM EST (OSC MSURG) BONE MARROW BIOPSY AND ASPIRATION; DIAGNOSTIC Routine 06/05/2024 1:07 PM EST documented in this encounter Results * Myelodysplastic Syndrome (MDS) FISH Panel (06/05/2024 2:22 PM EST) Specimen Condition adequate 06/08/2024 11:23 PM [facility] Indication for Study Anemia, in patient with presumed hx of benign neutropenia 06/08/2024 11:23 PM [facility] FISH Panel Summary NEGATIVE for all FISH Panel markers 06/08/2024 11:23 PM [facility] FISH Results 5q deletion, monosomy 5, 7q deletion, monosomy 7, trisomy 8, and 20q deletion NOT DETECTED. 06/08/2024 11:23 PM [facility] ISCN Nomenclature nuc josselin(D5S23,EGR1)x2[ 200],(D7Z1,E0P621) x2[200],(D8Z2,D20S 108)x2[200] 06/08/2024 11:23 PM [facility] Culture Type Direct Luke 06/08/20 11:23 PM [facility] FISH Method Interphase 06/08/2024 11:23 PM [facility] Interpretation Interphase FISH analysis [...] analysis using probes for CEP7/D7Z1/7p11.1q1 1.1 and S3G189/7q31 loci ([employer] shows 1.5% and 0% of 200 cells with 7q signal deletion (7q-) and chromosome 7 signal loss (monosomy 7) patterns, respectively. These are within acceptable reference limits (7q deletion: 0-6.3%; monosomy 7: 0-4.4%). Thus, there is no evidence for 7q deletion and monosomy 7. Interphase FISH analysis using probes for CEP8/D8Z2/8p11.1q1 1.1 and R39X455/20q12 loci ([employer] shows 0% and 2.5% of 200 cells with a chromosome 8 signal gain and 20q signal deletion patterns, respectively. These are within acceptable reference limits (trisomy 8: 0-5.1%; 20q deletion: 0-6.3%). Thus, there is no evidence for trisomy 8 and 20q deletion. Correlation with clinical and pathological studies is suggested. 06/08/2024 11:23 PM [facility] Technical Methods FISH is [...] The FISH probes are directly-labeled by the auto body repair estimator ([employer]) with either a spectrum orange, green, or aqua fluorochrome. Cells are stained with DAPI ([employer]), visualized through fluorescence microscopy, and images captured on the CytoVision software ([employer]). Results are reported based on an International System for Human Cytogenomic Nomenclature. 06/08/2024 11:23 PM EST [facility] Limitations & Disclaimers The FISH test was developed and its performance characteristics were determined by the [facility] ([facility]) Cytogenetics Laboratory as required by The Clinical [...] verified the test's accuracy and precision. The [facility] Cytogenetics Laboratory is certified under the CLIA'88 as qualified to perform high complexity clinical laboratory testing. Chromosome alterations outside the regions complementary to these DNA FISH probes will not be detected. 06/08/2024 11:23 PM EST [facility] Sign-out by Professional component performed by Lizette Bullock, Ph.D., [facility], [facility] [address], [place], [place] (CLIA #: [id number]). 06/08/2024 11:23 PM EST [facility] Bone Marrow Non Blood Collection / Unknown 06/05/2024 2:22 PM EST 06/05/2024 3:07 PM EST Georges Boucher MD MOLECULAR ORDERABLES [facility] [place] [address] * Chromosome Analysis, Acquired ([facility]) (06/05/2024 2:22 PM EST) Chromosome, Leukemia/Lymph ananya ([facility]) See Scanned Result 06/14/2024 6:28 PM EST [facility] Specimen Condition ([facility]) 06/14/2024 6:28 PM EST [facility] Bone Marrow Non Blood Collection / Unknown 06/05/2024 2:22 PM EST 06/05/2024 3:07 PM EST Georges Boucher MD LAB SEND OUT ORDERAB LES REF [facility] [address] [place] [address], [facility] * DH HemeSeq (Bone Marrow) (06/05/2024 2:22 PM EST) NGS Report Status Normal 06/13/2024 10:21 AM EST [facility] Bone Marrow Non Blood Collection / Unknown 06/05/2024 2:22 PM EST 06/05/2024 3:07 PM EST Georges Boucher MD MOLECULAR ORDERABLES [facility] [place] [address] * Immunophenotyping Flow Cytometry (06/05/2024 2:22 PM EST) Pathologist [facility] Final Diagnosis - No monotypic B-cell population, no monotypic plasma cell population, no phenotypically abnormal T-cell population or increase in blasts is detected. 06/06/2024 2:08 PM [facility] Signing Pathologist This result has been reviewed by Georges Boucher MD on 06/06/24 at 2:08 PM. 06/06/2024 2:08 PM [facility] Interpretation CD19+ B-cells show [...] significant blast populations identified. 06/06/2024 2:08 PM [facility] Lymphocyte % 4.7 % 06/06/2024 2:08 PM [facility] Monocyte % 3.0 % 06/06/2024 2:08 PM [facility] Granulocyte % 76.0 % 06/06/2024 2:08 PM [facility] CD45 DIM % 0.9 % 06/06/2024 2:08 PM [facility] CD38 Bright/CD138+ 0.2 % 06/06/2024 2:08 PM [facility] CD3+ % 70.0 % 06/06/2024 2:08 PM [facility] CD19+ % 17.0 % 06/06/2024 2:08 PM [facility] CD56+ % 12.0 % 06/06/2024 2:08 PM [facility] B-Cell:T-Cell Ratio 0.2 06/06/2024 2:08 PM [facility] Concepcion:Lambda Ratio 1.8 06/06/2024 2:08 PM [facility] CD4:CD8 Ratio 1.6 06/06/2024 2:08 PM [facility] Specimen Processing Cells for immunophenotypic analysis were derived from bone marrow. The following markers were assessed: CD2, CD3, CD4, CD5, CD7, CD8, CD10, CD19, CD20, CD38, CD45, CD56, CD138, kappa light chain, (c)kappa light chain, lambda light chain, (c)lambda light chain,CD13, CD14, CD34, CD45, CD117, and HLA-DR. 06/06/2024 2:08 PM [facility] Disclaimer Flow analysis is an ancillary study. A definite diagnosis requires correlation with the morphologic features of this process and if necessary, correlation with other ancillary studies like immunohistochemist ry, enzyme cytochemistry and/or cyto/molecular genetics. This test was developed and its performance characteristics determined by the Clinical Flow Cytometry Laboratory at [facility]. It has not been cleared or [...] clinical laboratory testing. 06/06/2024 2:08 PM EST [facility] Bone Marrow Non Blood Collection / Unknown 06/05/2024 2:22 PM EST 06/05/2024 3:07 PM EST Georges Boucher MD HEMATOLOGY ORDERABLE S Performing Organization Address [facility]/ZIP Co de Phone Number [facility] [place] [address] * BM HOLD CYTOGENETICS/FISH (06/05/2024 2:22 PM EST) Bone Marrow Non Blood Collection / Unknown 06/05/2024 2:22 PM EST 06/05/2024 3:07 PM EST Narrative [facility] - 06/06/2024 10:47 AM EST ~3ml Markel Borjas MD PATHOLOGY/CYTOLOGY ORDERABLES Performing Organization Address [facility] Co de Phone Number [facility] [place] [address] * BM HOLD FLOW/MOLECULAR (06/05/2024 2:22 PM EST) Bone Marrow Non Blood Collection / Unknown 06/05/2024 2:22 PM EST 06/05/2024 3:07 PM EST Markel Borjas MD PATHOLOGY/CYTOLOGY ORDERABLES Performing Organization Address [facility] Co de Phone Number [facility] [place] [address] * Bone Marrow (06/05/2024 2:22 PM EST) Case Report Bone Marrow Patholog y Report ?Case: [id number] ? Authorizing Provider: ??Indio, Marekl R, MD ?Collected: ? 06/05/2024 1422 ? [facility]ing [facility] ??Received: ?06/05/2024 1508 ? [facility] ? Pathologist: ? Georges Boucher, MD ? Specimens: ?? A) - Iliac Crest, Left ? B) - Iliac Crest, Left ? C) - Iliac Crest, Left ? 4 1:36 PM [facility] Final Diagnosis BONE MARROW (BLOOD FILM, ASPIRATE, TOUCH PREP, CORE & CLOT SECTIONS): 1. Normocellular bone marrow with maturing trilineage hematopoiesis. No overt dysplasia or increased blasts. 2. Ancillary studies pending. 4 1:36 PM [facility] Discussion The patient's histor y [...] to follow. 4 1:36 PM [facility] Additional Studies Task ID IHC/Special Stains Result B1-3 Myeloperoxidase Highlights granulocytic precursors. B1-4 CD34 Highlights rare blasts (<5% of cells) B1-5 CD117 Highlights rare mast cells. B1-6 E-Cadherin Highlights normal erythroid precursors. B1-7 CD61 Highlights normal megakaryocytes. 4 1:36 PM [facility] Clinical Information Anemia, in patient with presumed hx of benign neutropenia 4 1:36 PM [facility] Gross Description A. Iliac Crest, Left. Number of Lavender (EDTA) tubes: 3 Total Volume of Lavender (EDTA) tubes: 8 ml Number of Green (NaHep) tubes: 1 Total Volume of Green (NaHep) tubes: 3 ml Spicule/Clot Section submitted? Present Tube to Biorepository? Present Processed by: Abbie Magalie Barrow Collected off the [facility] by: N/A B. Iliac Crest, Left. [...] in toto in 1 cassette labeled C1. [facility] 4 1:36 PM [facility] Disclaimer(s) Formalin-fixed, paraffin-embedded tissue [...] diagnostic tests. 4 1:36 PM [facility] Bone Marrow Aspirate Adequacy: [...] ring sideroblasts. 4 1:36 PM [facility] Bone Marrow Biopsy and/or [...] bone normal for age. 1:36 PM EST [facility] Bone Marrow Differential Band/Seg 34%; Lymph 8%; Hettinger 0%; Eos 2%; Baso 1%; Metamyelocyte 13%; Myelocyte 9%; Promyelocyte 2%; Blast 1%; nRBC's 27%; Plasma cell 3% 1:36 PM EST [facility] Result Note Routine 1:36 PM [facility] Peripheral Blood Morphology RBCs: Mildly macrocytic anemia with rare target cells, ovalocytes. WBCs: Unremarkable. Platelets: Rare large platelet form present. 1:36 PM [facility] STRUCTURE OF LEFT ILIAC CREST / Unknown 06/05/2024 2:22 PM EST 06/05/2024 3:08 PM EST STRUCTURE OF LEFT ILIAC CREST / Unknown 06/05/2024 2:22 PM EST 06/05/2024 3:08 PM EST STRUCTURE OF LEFT ILIAC CREST / Unknown 06/05/2024 2:22 PM EST 06/05/2024 3:08 PM EST Markel Borjas MD PATHOLOGY/CYTOLOGY ORDERABLES [facility] [place] [address] * (ABNORMAL) CBC (with Diff) (06/05/2024 1:45 PM EST) White Blood Cell 3.06(L) 4.00 - 9.50 x10(3)/mc L 06/05/2024 2:38 PM EST [facility] Red Blood Cell 3.35(L) 4.00 - 5.21 x10(6)/mc L 06/05/2024 2:38 PM EST [facility] Hemoglobin 11.0(L) 11.7 - 15.5 g/dL 06/05/2024 2:38 PM [facility] Hematocrit 33.4(L) 35.7 - 45.8 % 06/05/2024 2:38 PM [facility] Mean Cell Volume 99.7(H) 82.6 - 94.4 fL 06/05/2024 2:38 PM [facility] Mean Cell Hemoglobin 32.8(H) 27.1 - 32.0 pg 06/05/2024 2:38 PM [facility] Mean Cell Hemoglobin Concentration 32.9 31.7 - 35.0 g/dL 06/05/2024 2:38 PM [facility] Platelet 151 145 - 357 x10(3)/mc L 06/05/2024 2:38 PM [facility] Mean Platelet Volume 8.9 7.6 - 12.9 fL 06/05/2024 2:38 PM [facility] RDW Standard Deviation 44.3 37.0 - 46.0 fL 06/05/2024 2:38 PM [facility] RDW coefficient of variation 12.0 11.5 - 14.1 % 06/05/2024 2:38 PM [facility] NRBC% auto 0.0 % 06/05/2024 2:38 PM [facility] NRBC Absolute <0.01 <0.01 x10(3)/mc L 06/05/2024 2:38 PM [facility] Neutrophil % 62.8 % 06/05/2024 2:38 PM [facility] Neutrophil Absolute (ANC) - Automated 1.92 1.70 - 6.10 x10(3)/mc L 06/05/2024 2:38 PM [facility] Lymph % 20.9 % 06/05/2024 2:38 PM [facility] Lymph Absolute 0.64(L) 0.90 - 3.20 x10(3)/mc L 06/05/2024 2:38 PM [facility] Monocyte % 15.0 % 06/05/2024 2:38 PM EST [facility] Monocyte Absolute 0.46 0.30 - 0.90 x10(3)/mc L 06/05/2024 2:38 PM EST [facility] Eos % 0.3 % 06/05/2024 2:38 PM EST [facility] Eos Absolute <0.04 0.00 - 0.40 x10(3)/mc L 06/05/2024 2:38 PM EST [facility] Basophil % 0.7 % 06/05/2024 2:38 PM EST [facility] Baso Absolute <0.04 0.00 - 0.10 x10(3)/mc L 06/05/2024 2:38 PM EST [facility] Immature Gran % 0.3 % 2:38 PM EST [facility] Immature Gran Absolute <0.04 0.00 - 0.04 x10(3)/mc L 06/05/2024 2:38 PM EST [facility] Blood VENOUS BLOOD SPECIMEN / Unknown Venipuncture / Unknown 06/05/2024 1:45 PM EST 06/05/2024 1:59 PM EST Markel Borjas MD HEMATOLOGY ORDERAB LES Performing Organization Address City/State/[facility] Co de Phone Number [facility] [place] [address] documented in this encounter Visit Diagnoses Not [...] RN) documented in this encounter Care Teams Steam Plant Records Clerk Relationship Specialty Start Date End Date Magdalena Acosta MD [address] [place] [address] PCP - General Family Medicine 02/05/23 documented as of this encounter
--- OUTSIDE RECORDS SUMMARY | 2024-06-20 15:48 | XMS_ITS | Encounter Summary ---
Author Organization [facility] Address [address] [place] [address] Care Team Providers Care Fixture Maker Name Role Phone Scott Ashley WILLIAM Primary Care Provider [phone] Encounter Details Date Type Department Care Team (Late st Contact Info) Description 11/10/2013 Results Only [facility] [phone] Jeni Laird, BEHAVIORAL GENETICIST [address] [place], [place] [id number] Social History Tobacco Use Types Packs/Day Years [...] reading/interpreti ng unformatted reports. Name: ? PURNIMA TAHCKER ? Accession #: ? [id number] : ? 1955 (Age: 58) ??F ?Collect Date: ? 11/10/2013 Location: ? [facility] ? Receive Date: ? 11/14/2013 Provider: ?JENI LAIRD BEHAVIORAL GENETICIST Copy to: ? Specimen/Source: ?Pap Test, Endocervix, [...] PAUL ARELLANO 11/10/2013 11/14/2013 us Jeni Laird BEHAVIORAL GENETICIST PATHOLOGY ORDERABLES Magy morgan Result PAUL ARELLANO [address] [place] [address] documented in this encounter Visit Diagnoses Not on filedocumented in this encounter Care Teams Fixture Maker Relationship Specialty Start Date End Date Ashley Chavez ARNP [address] [place] [address] PCP - General 07/11/10 documented as of this encounter
--- OUTSIDE RECORDS SUMMARY | 2024-06-20 15:48 | XMS_ITS | Referral Summary ---
Author Organization [facility] Address [address] [place] [address] Care Team Providers Care News Videographer Name Role Phone Nicole Chavezi WILLIAM Primary Care Provider [phone] Encounters Date Type Department Care Team Description 03/22/2024 Lab Requisition [facility] Pathology & Laboratory [address] [address] Consuelo Guerrero, DO Diaphragmatic hernia without obstruction or gangrene; Anemia, unspecified 03/21/2024 Lab Requisition [facility] Pathology & Laboratory [address] [address] Consuelo Guerrero, DO Encounter for other general examination 03/21/2024 Lab Requisition [facility] Pathology & Laboratory [address] [address] Outr Resulting Lab, Provider from Last 3 [...] LORY Negative 03/21/2024 22:31 EDT [facility] B[facility]OD [facility] Blood VENOUS BLOOD / Unknown 03/21/2024 13:00 EDT 03/21/2024 21:51 EDT Consuelo Guerrero DO BLOOD BANK TESTS Final Result Performing Organization Address [facility]/ZIP Co de Phone Number [facility]OD [facility] [address] [place] [address] * HAPTOGLOBIN (03/21/2024 13:00 EDT) Haptoglobin 183 32 - 197 mg/dL 03/22/2024 10:25 EDT [facility] Blood VENOUS BLOOD / Unknown 03/21/2024 13:00 EDT 03/21/2024 21:50 EDT us Provider Outr Resulting Lab CHEMISTRY & BLOOD GA S ORDERABLES Final Result Performing Organization Address City/[facility]/ZIP Co de Phone Number [facility] [address] [place] [address] * SURGICAL PATHOLOGY (03/21/2024 11:35 EDT) Note to Patient The following pathology results have been interpreted by your pathologist and may be available to you before your health provider has had the opportunity to review them. Please allow time for your provider to receive these results and explore management options, if applicable. 03/24/2024 10:36 EDT [facility] Final Diagnosis A. JEJUNUM, [...] Deeper sections x3 examined. 03/24/2024 10:36 [facility] Attestation There was significant resident/fellow involvement in the diagnostic evaluation of this case. By the signature below, the attending physician certifies that they have personally conducted a gross and/or microscopic examination of the described specimens and rendered or confirmed the above diagnosis. 03/24/2024 10:36 [facility] at 1036 Clinical History Anemia, hiatal hernia, 38 cm aguayo diverticulosis 03/24/2024 10:36 [facility] Gross Description A. [...] 03/22/2024 9:36 03/24/2024 10:36 EDT [facility] Resident/Estuardo w: Luis Felipe Bragg DO 03/24/2024 10:36 EDT [facility] Performing Lab [facility] 10:36 EDT [facility] Scanned Images 03/24/2024 10:36 EDT [facility] Tissue POLYP OF COLON [...] Guerrero DO PATHOLOGY ORDERABLES Final Re sult [facility] [address] [place] [address] from Last 3 Months Insurance MEDICARE [facility] Care Teams News Videographer Relationship Specialty Start Date End Date Ashley Chavez ARNP [address] [place] [address] PCP - General 07/11/10
--- OUTSIDE RECORDS SUMMARY | 2024-06-20 15:48 | XMS_ITS | Encounter Summary ---
Author Organization [facility] Address [address] [place] [address] Care Team Providers Care Physical Science Technician Name Role Phone Ashley Chavez Primary Care Provider [phone] Encounter Details Date Type Department Care Team (Late st Contact Info) Description 10/30/2022 Lab Requisition [facility] Pathology & Laboratory Medicine - [address] [address] Outr Resulting Lab, Provider Social History Tobacco [...] Stranded) <12.3 <30.0 IU/mL 11/03/2022 13:08 EDT [facility] Comment: ? Negative: ??<30.0 IU/mL ? Borderline Positive: ??30.0 - 75.0 IU/mL ? Positive: ??>75.0 IU/mL Results were obtained with the [employer] QUANTA Lite dsDNA SC DOMO assay on the [employer] DSX. Blood VENOUS BLOOD / Unknown 10/29/2022 14:00 EDT 10/30/2022 19:27 EDT Provider Outr Resulting Lab IMMUNOLOGY AND SEROL OGY ORDERABLES Final Result Performing Organization Address [facility] de Phone Number [facility] [address] [place] [address] * SM (MORENO) ANTIBODY (10/29/2022 14:00 EDT) SM (Moreno) Antibody 18.5 <20.0 Units 11/03/2022 14:26 EDT [facility] Comment: ? Negative: [...] OGY ORDERABLES Final Result Performing Organization Address [facility] de Phone Number [facility] [address] [place] [address] documented in this encounter Visit Diagnoses Not on filedocumented in this encounter Care Teams Physical Science Technician Relationship Specialty Start Date End Date Ashley Chavez ARNP [address] [place] [address] PCP - General 07/11/10 documented as of this encounter
--- OUTSIDE RECORDS SUMMARY | 2024-06-20 15:48 | XMS_ITS | Encounter Summary ---
Author Organization [facility] Address [address] [place] [address] Care Team Providers Care Smash Hand Name Role Phone Ashley Chavez Primary Care Provider [phone] Encounter Details Date Type Department Care Team (Late st Contact Info) Description 03/21/2024 Lab Requisition [facility] Pathology & Laboratory Medicine - [address] [address] Outr Resulting Lab, Provider Social History Tobacco [...] 197 mg/dL 03/22/2024 10:25 EDT [facility] Blood VENOUS BLOOD / Unknown 03/21/2024 13:00 EDT 03/21/2024 21:50 EDT us Provider Outr Resulting Lab CHEMISTRY & BLOOD GA S ORDERABLES Final Result Performing Organization Address [facility]/State/ZIP Co de Phone Number [facility] [address] [place] [address] documented in this encounter Visit Diagnoses Not on filedocumented in this encounter Care Teams Smash Hand Relationship Specialty Start Date End Date Ashley Chavez ARNP [address] [place] [address] PCP - General 07/11/10 documented as of this encounter
--- OUTSIDE RECORDS SUMMARY | 2024-06-20 15:48 | XMS_ITS | Clinical Summary ---
Author Organization [facility] Address [address] [place] [address] Care Team Providers Care Weights And Measures Inspector Name Role Phone Ashley Chavez Primary Care Provider [phone] Encounters Date Type Department Care Team Description 03/22/2024 Lab Requisition [facility] Pathology & Laboratory [address] [address] Consuelo Guerrero, DO Diaphragmatic hernia without obstruction or gangrene; Anemia, unspecified 03/21/2024 Lab Requisition [facility] Pathology & Laboratory [address] [address] Consuelo Guerrero, DO Encounter for other general examination 03/21/2024 Lab Requisition [facility] Pathology & Laboratory [address] [address] Outr Resulting Lab, Provider from Last 3 [...] LORY Negative 03/21/2024 22:31 EDT [facility] BLOOD BANK Blood VENOUS BLOOD / Unknown 03/21/2024 13:00 EDT 03/21/2024 21:51 EDT Consuelo Guerrero DO BLOOD BANK TESTS Final Result Performing Organization Address City/[facility]/ZIP Co de Phone Number [facility] BLOOD BANK [address] [place] [address] * HAPTOGLOBIN (03/21/2024 13:00 EDT) Haptoglobin 183 32 - 197 mg/dL 03/22/2024 10:25 EDT [facility] Blood VENOUS BLOOD / Unknown 03/21/2024 13:00 EDT 03/21/2024 21:50 EDT us Provider Outr Resulting Lab CHEMISTRY & BLOOD GA S ORDERABLES Final Result [facility] [address] [place] [address] * SURGICAL PATHOLOGY (03/21/2024 11:35 EDT) Note [...] 03/22/2024 9:36 03/24/2024 10:36 EDT [facility] Resident/Estuardo w: Luis Felipe Bragg DO 03/24/2024 10:36 T [facility] Performing Lab [facility] 10:36 T [facility] Scanned Images 03/24/2024 10:36 T [facility] Tissue POLYP OF [...] Guerrero DO PATHOLOGY ORDERABLES Final Re sult [facility] [address] [place] [address] from Last 3 Months Insurance MEDICARE [facility] Care Teams Weights And Measures Inspector Relationship Specialty Start Date End Date Ashley Chavez ARNP [address] [place] [address] PCP - General 07/11/10
--- OUTSIDE RECORDS SUMMARY | 2024-06-20 15:48 | XMS_ITS | Encounter Summary ---
Author Organization [facility] Address [address] [place] [address] Care Team Providers Care Tank Truck Operator Name Role Phone Ashley Chavez Primary Care Provider [phone] Encounter Details Date Type Department Care Team (Latest Contact Info) Description 05/12/2019 13:18 EDT - 05/12/2019 23:59 EDT Hospital Encounter [address] [address] Unknown, Provider, MD Discharge Disposition: Home or [...] filedocumented in this encounter Care Teams Tank Truck Operator Relationship Specialty Start Date End Date Ashley Chavez ARNP [address] [place] [address] PCP - General 07/11/10 documented as of this encounter
--- OUTSIDE RECORDS SUMMARY | 2024-06-20 15:49 | XMS_ITS | Encounter Summary ---
Author Organization [facility] Address [facility] [place] [address] Care Team Providers Care Communications Executive Name Role Phone Magdalena Acosta MD Primary Care Provider [phone] Encounter Details Date Type Department Care Team [...] Visit Hematology [place] [address] Markel Borjas MD [facility] [address] [place] [address] 11/02/2024 12:00 PM EDT Appointment [place] [address] 11/02/2024 1:00 PM EDT Office [place] [address] Magdalena Peralta MD [facility] [place] [address] 03/01/2025 4:15 PM EDT Office Visit Dermatology at [place] [address] [facility] [place] [address] Marek Bonilla MD [address] [place] [address] documented as of this encounter Visit Diagnoses Not on filedocumented in this encounter Care Teams Communications Executive Relationship Specialty Start Date End Date Magdalena Acosta MD [address] [place] [address] PCP - General Family Medicine 02/05/23 documented as of this encounter
--- OUTSIDE RECORDS SUMMARY | 2024-06-20 15:49 | XMS_ITS | Encounter Summary ---
Author Organization [facility] Address [facility] [place] [address] Care Team Providers Care Clamp Truck Driver Name Role Phone Magdalena Acosta MD [...] EST Office Visit Hematology [place] [address] [facility] [address] [place] [address] 11/02/2024 12:00 PM EDT Appointment [place] [address] 11/02/2024 1:00 PM EDT Office [place] [address] [facility] [place] [address] 03/01/2025 4:15 PM EDT Office Visit Dermatology at [place] [address] [facility] [place] [address] Marek Bonilla MD [address] [place] [address] documented as of this encounter Visit Diagnoses Not on filedocumented in this encounter Care Teams Clamp Truck Driver Relationship Specialty Start Date End Date Magdalena Acosta MD [address] [place] [address] PCP - General Family Medicine 02/05/23 documented as of this encounter
--- OUTSIDE RECORDS SUMMARY | 2024-06-20 15:49 | XMS_ITS | Encounter Summary ---
Author Organization [facility] [place] [address] Care Team Providers Care Department Coordinator Name Role Phone Magdalena Acosta MD Primary Care Provider [phone] Encounter Details Date Type Department Care Team (Late st Contact Info) Description 12/02/2023 11:15 AM EDT Office [place] [address] Magdalena Peralta MD [facility] DR RHEUMATOLOGY DEPT [place] [address] Mixed connective tissue disease Social History Tobacco [...] 1:5120 speckled; VIC negative; Myositis panel with HELMET COVERER ab 149.1 (positive); Anti U1RNP IgG 119; [...] questions that she sent via [facility] ahead of her visit, which [...] exposure. She has an appointment with her Corporate Real Estate Manager scheduled in January. (Dr Bonilla in [place]) ROS (positives in bold): Gen: no fevers, [...] but I encouraged her to contact her Corporate Real Estate Manager to see if she could have her [...] Dr. Tanisha Peralta MD Rheumatology Fellow Pager: [phone] * Federico eYe MD - 12/02/2023 11:15 AM EDT Rheumatology [...] Visit Hematology and Oncology at [place] [phone] Markel Borjas MD [facility] [place] [address] 11/02/2024 12:00 PM EDT Appointment Pulmonology at [place] [address] 11/02/2024 1:00 PM EDT Office Visit Rheumatology at [place] [address] Magdalena Peralta MD [facility] [place] [address] 03/01/2025 4:15 PM EDT Office Visit Dermatology at [place] [address] [facility] [place] [address] Marek Bonilla MD [address] [facility], [place] [address] Scheduled Orders Name Type Priority Associated Diagnoses Orde r Schedule EKG 12 Lead ECG Routine Mixed connective tissue disease Expected: 12/02/2023, Expires: 06/03/2024 documented as of this encounter Visit Diagnoses Diagnosis Mixed connective tissue disease Other specified diffuse disease of connective tissue documented in this encounter Care Teams Department Coordinator Relationship Specialty Start Date End Date Magdalena Acosta MD [address] [place] [address] PCP - General Family Medicine 02/05/23 documented as of this encounter
--- OUTSIDE RECORDS SUMMARY | 2024-06-20 15:49 | XMS_ITS | Encounter Summary ---
[place] [address] Care Team Providers Care Final Coat Sprayer Name Role Phone Magdalena Acosta MD Primary Care Provider [phone] Reason for Visit * Reason Comments Annual Exam Encounter Details Date Type Department Care Team (Late st Contact Info) Description 02/22/2024 4:15 PM EDT Office Visit Dermatology at [address] [phone] Marek Bonilla MD [address] [facility] A DERMATOLOGY [place], [place] [phone] Seborrheic keratosis; Rosacea; Nevus Social History Tobacco [...] cutaneous and ocular 3. Previously told by bonding and composite fabricator that she had corneal tears from her [...] EST Office Visit Hematology [place] [address] Markel Borjas MD [facility] [address] HEMATOLOGY [place] [address] 11/02/2024 12:00 PM EDT Appointment [place] [address] 11/02/2024 1:00 PM EDT Office [place] [address] Magdalena Peralta MD [facility] [place] [address] 03/01/2025 4:15 PM EDT Office Visit Dermatology at [address] [place] [address] Marek Bonilla MD [address] [facility], [place] [address] documented as of this encounter Visit Diagnoses Diagnosis Seborrheic keratosis Other seborrheic keratosis Rosacea Nevus Benign neoplasm of skin, site unspecified documented in this encounter Care Teams Final Coat Sprayer Relationship Specialty Start Date End Date Magdalena Acosta MD [address] [place] [address] PCP - General Family Medicine 02/05/23 documented as of this encounter
--- OUTSIDE RECORDS SUMMARY | 2024-06-20 15:49 | XMS_ITS | Encounter Summary ---
Author Organization [facility] Address [facility] [place] [address] Care Team Providers Care Press Tender Smoke Signal Name Role Phone Magdalena Acosta MD Primary Care Provider [phone] Encounter Details Date Type Department Care Team [...] Hematology [place] [address] Markel Borjas MD [facility] DR HEMATOLOGY [place] [address] 11/02/2024 12:00 PM EDT Appointment [place] [address] 11/02/2024 1:00 PM EDT Office [place] [address] Magdalena Peralta MD [facility] [place] [address] 03/01/2025 4:15 PM EDT Office Visit Dermatology at [place] [address] [facility] [place] [address] Marek Bonilla MD [address], [address] Katherine [place] [address] documented as of this encounter Visit Diagnoses Not on filedocumented in this encounter Care Teams Press Tender Smoke Signal Relationship Specialty Start Date End Date Magdalena Acosta MD [address] [place] [address] PCP - General Family Medicine 02/05/23 documented as of this encounter
--- OUTSIDE RECORDS SUMMARY | 2024-06-20 15:49 | XMS_ITS | Encounter Summary ---
Author Organization [facility] Address [facility] [place] [address] Care Team Providers Care Research Biologist Name Role Phone Magdalena Acosta MD Primary Care Provider [phone] Encounter Details Date Type Department Care Team (Late st Contact Info) Description 07/29/2023 11:00 AM EST Office [place] [address] Magdalena Peralta MD [facility] [place] [address] Mixed connective tissue disease Social History Tobacco [...] speckled; VIC negative; Myositis panel with ASSOCIATE EDITOR ab 149.1 (positive); Anti U1RNP IgG 119; [...] Viramontes. Magdalena Peralta MD Rheumatology Fellow Pager: [phone] * Kia Viramontes DO - 07/29/2023 11:00 [...] Visit [place]ology [place] [address] Markel Borjas MD [facility] DR [place] [address] 11/02/2024 12:00 PM EDT [place] [address] 11/02/2024 1:00 PM EDT Office [place] [address] Magdalena Peralta MD [facility] [place] [address] 03/01/2025 4:15 PM EDT Office Visit Dermatology at [place] [address] [facility] [place] [address] Marek Bonilla MD [address], [place] [address] documented as of this encounter Results * [...] PFT FEV1/FVC Pre-BD Z-Score 0 COMPAS PFT CFY51-75 Actual Pre-BD 2.41 % COMPAS PFT ZKM56-00 Predicted 1.8 % COMPAS PFT ASN88-34 Pre-BD % of Predicted 134 % COMPAS PFT GGZ78-58 Pre-BD Z-Score 0.81 COMPAS PFT DLCO Hb [...] tissue documented in this encounter Care Teams Research Biologist Relationship Specialty Start Date End Date Magdalena Acosta MD [address] [place] [address] PCP - General Family Medicine 02/05/23 documented as of this encounter
--- OUTSIDE RECORDS SUMMARY | 2024-06-20 15:49 | XMS_ITS | Encounter Summary ---
Author Organization [facility] [place] [address] Care Team Providers Care Journalist Name Role Phone Magdalena Acosta MD Primary Care Provider [phone] Encounter Details Date Type Department Care Team (Late st Contact Info) Description 05/18/2024 Interpretation Only [address] [address] Magdalena Acosta MD [address] [place], [place] [phone] Social History Tobacco Use Types Packs/Day Years [...] EST Office Visit Hematology [place] [address] Markel Borjas MD [facility] DR [place] [address] 11/02/2024 12:00 PM EDT Appointment [place] [address] 11/02/2024 1:00 PM EDT Office [place] [address] Magdalena Peralta MD [facility] [place] [address] 03/01/2025 4:15 PM EDT Office Visit Dermatology at [place] [address] [place] [address] Marek Bonilla MD [address], [place] [address] documented as of this encounter Procedures Procedure Name Priority Date/Time Associated Diagnosis Comments DXA CENTRAL SPINE, HIP, AND/OR WHOLE BODY (GENERIC) Routine 05/18/2024 11:21 AM EDT documented in this encounter Results * DXA Central Spine, Hip, and/or Whole Body (Generic) (05/18/2024 11:21 AM EDT) PT CLASS O RAD ADMITDTTM [id number] [facility] PT [facility] INFO [id number]^Dave ^Magdalena RAD EXAM DESC XDXAC^BD Bone Density DEXA Axial Skeleton^RIS [facility] WORKSTATION ID RADDRIMAGE [facility] Anatomical Region Laterality Modality C-spine, Hip N/A [...] overnight caregiver that requested your imaging first. Magdalena Acosta MD IMG DEXA ORDERABLES documented in this encounter Visit Diagnoses Not on filedocumented in this encounter Care Teams Journalist Relationship Specialty Start Date End Date Magdalena Acosta MD [address] [place] [address] PCP - General Family Medicine 02/05/23 documented as of this encounter
--- OUTSIDE RECORDS SUMMARY | 2024-06-20 15:49 | XMS_ITS | Encounter Summary ---
Author Organization [facility] [place] [address] Care Team Providers Care Asphalt Worker Name Role Phone Magdalena Acosta MD Primary Care Provider [phone] Encounter Details Date Type Department Care Team (Late st Contact Info) Description 07/08/2023 10:15 AM EST Office Visit Cardiology at [address] [phone] Severe aortic stenosis Social History Tobacco Use [...] EST Office Visit Hematology [place] [address] Markel Borjas MD [facility] DR [place] [address] 11/02/2024 12:00 PM EDT Appointment [place] [address] 11/02/2024 1:00 PM EDT Office [place] [address] Magdalena Peralta MD [facility] DR RHEUMATOLOGY DEPT [place], [place] [address] 03/01/2025 4:15 PM EDT Office Visit Dermatology at [place] [address] [facility] [place] [address] Marek Bonilla MD [address] [facility], [place] [address] documented as of this encounter Procedures Procedure [...] (Bezet) 449 ms MUSE SYSTEM Calculated P [place] 66 degrees MUSE SYSTEM Calculated R [place] 60 degrees MUSE SYSTEM Calculated T [place] 53 degrees MUSE SYSTEM INTERPRETATION Normal sinus rhythm Minimal voltage criteria for LVH, may be normal variant ( Sokolow-Orozco ) ST & T wave abnormality, consider lateral ischemia ??vs. repolarization abnormality from LVH Abnormal ECG When compared with ECG of 13-MAY-2023 09:22, Premature ventricular complexes are no longer Present Minimal criteria for Septal infarct are no longer Present Confirmed by Maxx Best ([id number]) on 07/09/2023 10:07:22 AM MUSE SYSTEM 07/08/2023 10:2 7 AM EST 07/09/2023 10:07 AM EST Brody Kaplan APRN ECG ORDERABLES MUSE SYSTEM documented in this encounter Visit Diagnoses Diagnosis Severe aortic stenosis Aortic valve disorders documented in this encounter Care Teams Asphalt Worker Relationship Specialty Start Date End Date Magdalena Acosta MD [address] [place] [address] PCP - General Family Medicine 02/05/23 documented as of this encounter
--- OUTSIDE RECORDS SUMMARY | 2024-06-20 15:49 | XMS_ITS | Encounter Summary ---
Author Organization [facility] Address [facility] [place] [address] Care Team Providers Care Preschool Adviser Name Role Phone Magdalena Acosta MD Primary Care Provider [phone] Encounter Details Date Type Department Care Team [...] EST Office Visit Hematology [place] [address] Markel Borjas MD [facility] [address] HEMATOLOGY [place] [address] 11/02/2024 12:00 PM EDT Appointment [place] [phone] 11/02/2024 1:00 PM EDT Office [place] [address] Magdalena Peralta MD [facility] [place] [address] 03/01/2025 4:15 PM EDT Office Visit Dermatology at [place] [address] [place] [phone] Marek Bonilla MD [address] [place] [address] documented as of this encounter Visit Diagnoses Not on filedocumented in this encounter Care Teams Preschool Adviser Relationship Specialty Start Date End Date Magdalena Acosta MD [address] [place] [address] PCP - General Family Medicine 02/05/23 documented as of this encounter
--- OUTSIDE RECORDS SUMMARY | 2024-06-20 15:49 | XMS_ITS | Encounter Summary ---
Author Organization Formerly [facility] [place] [address] Care Team Providers Care Card Doffer Name Role Phone Magdalena Acosta MD Primary Care Provider [phone] Encounter Details Date Type Department Care Team (Latest Contact Info) Description 06/05/2024 1:04 PM EST - 06/05/2024 3:08 PM EST Hospital Encounter [facility] [place] [address] Markel Borjas MD [facility] [address] [place] [address] Discharge Disposition: Home Social History Tobacco Use [...] 5pm or on a weekend: Call the [facility] dumb waiter operator at and ask for the physician environmental emergencies planner covering for your doctor. Instructions following sedation [...] drainage occurs, please [place] [address] [email or web address] [facility] documented in this encounter Medications at Time [...] Verio test strips Strip USE DAILY 01/03/2022 ZeaKalTouch Delica Plus Lancet 33 gauge Misc USE [...] Hematology [place] [address] Markel Borjas MD [facility] [address] [place] [address] 11/02/2024 12:00 PM EDT Appointment [place] [address] 11/02/2024 1:00 PM EDT Office Visit [place] [phone] Magdalena Peralta MD [facility] [address] RHEUMATOLOGY DEPT [place], [place] [address] 03/01/2025 4:15 PM EDT Office Visit Dermatology at [place] [address] [place] [address] Marek Bonilla MD [address], [place] [address] documented as of this encounter Procedures Procedure [...] EST Diagnostic Bone Marrow Biopsies & Aspirations (89413) 06/05/2024 2:03 PM EST Anemia, in pt with longstanding neutropenia CBC (WITH DIFF) Routine 06/05/2024 1:45 PM EST ([facility]) BONE MARROW BIOPSY AND ASPIRATION; DIAGNOSTIC Routine 06/05/2024 1:07 PM EST documented in this encounter Results * Myelodysplastic Syndrome (MDS) FISH Panel (06/05/2024 2:22 PM EST) Specimen Condition adequate 06/08/2024 11:23 PM [facility] Indication for Study Anemia, in patient with presumed hx of benign neutropenia 06/08/2024 11:23 PM EST [facility] FISH Panel Summary NEGATIVE for all FISH Panel markers 06/08/2024 11:23 PM [facility] FISH Results 5q deletion, monosomy 5, 7q deletion, monosomy 7, trisomy 8, and 20q deletion NOT DETECTED. 06/08/2024 11:23 PM [facility] ISCN Nomenclature nuc josselin(D5S23,EGR1)x2[ 200],(D7Z1,A3B934) x2[200],(D8Z2,D20S 108)x2[200] 06/08/2024 11:23 PM [facility] Culture Type Direct [place] 06/08/20 11:23 PM [facility] FISH Method Interphase 06/08/2024 11:23 PM [facility] Interpretation Interphase FISH analysis using [...] analysis using probes for CEP7/D7Z1/7p11.1q1 1.1 and N8I856/7q31 loci ([employer] shows 1.5% and 0% of 200 cells with 7q signal deletion (7q-) and chromosome 7 signal loss (monosomy 7) patterns, respectively. These are within acceptable reference limits (7q deletion: 0-6.3%; monosomy 7: 0-4.4%). Thus, there is no evidence for 7q deletion and monosomy 7. Interphase FISH analysis using probes for CEP8/D8Z2/8p11.1q1 1.1 and B33L915/20q12 loci ([employer] shows 0% and 2.5% of 200 cells with a chromosome 8 signal gain and 20q signal deletion patterns, respectively. These are within acceptable reference limits (trisomy 8: 0-5.1%; 20q deletion: 0-6.3%). Thus, there is no evidence for trisomy 8 and 20q deletion. Correlation with clinical and pathological studies is suggested. 06/08/2024 11:23 PM [facility] Technical Methods FISH is performed [...] The FISH probes are directly-labeled by the air traffic coordinator ([employer] or [employer]) with either a spectrum orange, green, or aqua fluorochrome. Cells are stained with DAPI ([employer]), visualized through fluorescence microscopy, and images captured on the CytoVision software ([employer]). Results are reported based on an International System for Human Cytogenomic Nomenclature. 06/08/2024 11:23 PM [facility] Limitations & Disclaimers The FISH test was developed and its performance characteristics were determined by the [facility] ([facility]) Cytogenetics Laboratory as required by The Clinical [...] verified the test's accuracy and precision. The [facility] Cytogenetics Laboratory is certified under the CLIA'88 as qualified to perform high complexity clinical laboratory testing. Chromosome alterations outside the regions complementary to these DNA FISH probes will not be detected. 06/08/2024 11:23 PM EST [facility] Sign-out by Professional component performed by Lizette Bullock, Ph.D., [facility], [facility] [address] , [place], [place] (CLIA #: [id number]). 06/08/2024 11:23 PM EST [facility] Bone Marrow Non Blood Collection / Unknown 06/05/2024 2:22 PM EST 06/05/2024 3:07 PM EST Georges Boucher MD MOLECULAR ORDERABLES Performing Organization Address City/[facility]/ZIP Co de Phone Number [facility] [place] [phone] * Chromosome Analysis, Acquired ([facility]) (06/05/2024 2:22 PM EST) Chromosome, Leukemia/Lymph ananya ([facility]) See Scanned Result 06/14/2024 6:28 PM EST REF [facility] Specimen Condition ([facility]) 06/14/2024 6:28 PM EST REF [facility] Bone Marrow Non Blood Collection / Unknown 06/05/2024 2:22 PM EST 06/05/2024 3:07 PM EST Georges Boucher MD LAB SEND OUT ORDERAB LES REF [facility] [address] [place] [address], [facility] * DH HemeSeq (Bone Marrow) (06/05/2024 2:22 PM EST) NGS Report Status Normal 06/13/2024 10:21 AM EST [facility] Bone Marrow Non Blood Collection / Unknown 06/05/2024 2:22 PM EST 06/05/2024 3:07 PM EST Georges Boucher MD MOLECULAR ORDERABLES [facility] [place] [address] * Immunophenotyping Flow Cytometry (06/05/2024 2:22 PM EST) Pathologist [facility] Final Diagnosis - No monotypic B-cell population, no monotypic plasma cell population, no phenotypically abnormal T-cell population or increase in blasts is detected. 06/06/2024 2:08 PM [facility] Signing Pathologist This result has been reviewed by Georges Boucher MD on 06/06/24 at 2:08 PM. 06/06/2024 2:08 PM [facility] Interpretation CD19+ B-cells show a [...] significant blast populations identified. 06/06/2024 2:08 PM [facility] Lymphocyte % 4.7 % 06/06/2024 2:08 PM [facility] Monocyte % 3.0 % 06/06/2024 2:08 PM [facility] Granulocyte % 76.0 % 06/06/2024 2:08 PM [facility] CD45 DIM % 0.9 % 06/06/2024 2:08 PM [facility] CD38 Bright/CD138+ 0.2 % 06/06/2024 2:08 PM [facility] CD3+ % 70.0 % 06/06/2024 2:08 PM [facility] CD19+ % 17.0 % 06/06/2024 2:08 PM [facility] CD56+ % 12.0 % 06/06/2024 2:08 PM [facility] B-Cell:T-Cell Ratio 0.2 06/06/2024 2:08 PM [facility] [place]:Lambda Ratio 1.8 06/06/2024 2:08 PM [facility] CD4:CD8 Ratio 1.6 06/06/2024 2:08 PM [facility] Specimen Processing Cells for immunophenotypic analysis were derived from bone marrow. The following markers were assessed: CD2, CD3, CD4, CD5, CD7, CD8, CD10, CD19, CD20, CD38, CD45, CD56, CD138, kappa light chain, (c)kappa light chain, lambda light chain, (c)lambda light chain,CD13, CD14, CD34, CD45, CD117, and HLA-DR. 06/06/2024 2:08 PM [facility] Disclaimer Flow analysis is an ancillary study. A definite diagnosis requires correlation with the morphologic features of this process and if necessary, correlation with other ancillary studies like immunohistochemist ry, enzyme cytochemistry and/or cyto/molecular genetics. This test was developed and its performance characteristics determined by the Clinical Flow Cytometry Laboratory at [facility]. It has not been cleared [...] HEMATOLOGY ORDERABLE S Performing Organization Address [facility] Co de Phone Number [facility] [place] [address] * BM HOLD CYTOGENETICS/FISH (06/05/2024 2:22 PM EST) Bone Marrow Non Blood Collection / Unknown 06/05/2024 2:22 PM EST 06/05/2024 3:07 PM EST Narrative [facility] - 06/06/2024 10:47 AM EST ~3ml Markel Borjas MD PATHOLOGY/CYTOLOGY ORDERABLES Performing Organization Address [facility] de Phone Number [facility] [place] [address] * BM HOLD FLOW/MOLECULAR (06/05/2024 2:22 PM EST) Bone Marrow Non Blood Collection / Unknown 06/05/2024 2:22 PM EST 06/05/2024 3:07 PM EST Markel Borjas MD PATHOLOGY/CYTOLOGY ORDERABLES Performing Organization Address [facility] de Phone Number [facility] [place] [address] * Bone Marrow (06/05/2024 2:22 PM EST) Case Report Bone Marrow Patholog y Report ?Case: [id number] ? Authorizing Provider: ??Borjas, Markel R, MD ?Collected: ? 06/05/2024 1422 ? Ordering Location: ? [facility] ??Received: ?06/05/2024 1508 ? [facility] ? Pathologist: ? Boucher, Georges L, MD ? Specimens: ?? A) - Iliac Crest, Left ? B) - Iliac Crest, Left ? C) - Iliac Crest, Left ? 4 1:36 PM [facility] Final Diagnosis BONE MARROW (BLOOD FILM, ASPIRATE, TOUCH PREP, CORE & CLOT SECTIONS): 1. Normocellular bone marrow with maturing trilineage hematopoiesis. No overt dysplasia or increased blasts. 2. Ancillary studies pending. 4 1:36 PM [facility] Discussion The patient's histor y [...] integrated report to follow. 4 1:36 PM [facility] Additional Studies Task ID IHC/Special Stains Result B1-3 Myeloperoxidase Highlights granulocytic precursors. B1-4 CD34 Highlights rare blasts (<5% of cells) B1-5 CD117 Highlights rare mast cells. B1-6 E-Cadherin Highlights normal erythroid precursors. B1-7 CD61 Highlights normal megakaryocytes. 4 1:36 PM [facility] Clinical Information Anemia, in patient with presumed hx of benign neutropenia 4 1:36 PM [facility] Gross Description A. Iliac Crest, [...] cassette labeled C1. CCP 4 1:36 PM [facility] Disclaimer(s) Formalin-fixed, paraffin-embedded tissue sections [...] and other diagnostic tests. 4 1:36 PM [facility] Bone Marrow Aspirate Adequacy: Smear/touch [...] present, no ring sideroblasts. 4 1:36 PM [facility] Bone Marrow Biopsy and/or Clot [...] Bone Marrow Differential Band/Seg 34%; Lymph 8%; [place] 0%; Eos 2%; Baso 1%; Metamyelocyte 13%; Myelocyte 9%; Promyelocyte 2%; Blast 1%; nRBC's 27%; Plasma cell 3% 1:36 PM EST [facility] Result Note Routine 1:36 PM [facility] Peripheral Blood Morphology RBCs: Mildly macrocytic anemia with rare target cells, ovalocytes. WBCs: Unremarkable. Platelets: Rare large platelet form present. 1:36 PM [facility] STRUCTURE OF LEFT ILIAC CREST / Unknown 06/05/2024 2:22 PM EST 06/05/2024 3:08 PM EST STRUCTURE OF LEFT ILIAC CREST / Unknown 06/05/2024 2:22 PM EST 06/05/2024 3:08 PM EST STRUCTURE OF LEFT ILIAC CREST / Unknown 06/05/2024 2:22 PM EST 06/05/2024 3:08 PM EST Markel Borjas MD PATHOLOGY/CYTOLOGY ORDERABLES [facility] [place] [address] * (ABNORMAL) CBC (with Diff) (06/05/2024 1:45 PM EST) White Blood Cell 3.06(L) 4.00 - 9.50 x10(3)/mc L 06/05/2024 2:38 PM EST [facility] Red Blood Cell 3.35(L) 4.00 - 5.21 x10(6)/mc L 06/05/2024 2:38 PM EST [facility] Hemoglobin 11.0(L) 11.7 - 15.5 g/dL 06/05/2024 2:38 PM EST [facility] Hematocrit 33.4(L) 35.7 - 45.8 % 06/05/2024 2:38 PM [facility] Mean Cell Volume 99.7(H) 82.6 - 94.4 fL 06/05/2024 2:38 PM [facility] Mean Cell Hemoglobin 32.8(H) 27.1 - 32.0 pg 06/05/2024 2:38 PM [facility] Mean Cell Hemoglobin Concentration 32.9 31.7 - 35.0 g/dL 06/05/2024 2:38 PM [facility] Platelet 151 145 - 357 x10(3)/mc L 06/05/2024 2:38 PM [facility] Mean Platelet Volume 8.9 7.6 - 12.9 fL 06/05/2024 2:38 PM [facility] RDW Standard Deviation 44.3 37.0 - 46.0 fL 06/05/2024 2:38 PM [facility] RDW coefficient of variation 12.0 11.5 - 14.1 % 06/05/2024 2:38 PM [facility] NRBC% auto 0.0 % 06/05/2024 2:38 PM [facility] NRBC Absolute <0.01 <0.01 x10(3)/mc L 06/05/2024 2:38 PM [facility] Neutrophil % 62.8 % 06/05/2024 2:38 PM [facility] Neutrophil Absolute (ANC) - Automated 1.92 1.70 - 6.10 x10(3)/mc L 06/05/2024 2:38 PM [facility] Lymph % 20.9 % 06/05/2024 2:38 PM [facility] Lymph Absolute 0.64(L) 0.90 - 3.20 x10(3)/mc L 06/05/2024 2:38 PM [facility] Monocyte % 15.0 % 06/05/2024 2:38 PM [facility] Monocyte Absolute 0.46 0.30 - [...] Immature Gran % 0.3 % 2:38 PM [facility] Immature Gran Absolute <0.04 0.00 - 0.04 x10(3)/mc L 06/05/2024 2:38 PM EST [facility] Blood VENOUS BLOOD SPECIMEN / Unknown Venipuncture / Unknown 06/05/2024 1:45 PM EST 06/05/2024 1:59 PM EST Markel Borjas MD HEMATOLOGY ORDERAB LES Performing Organization Address [facility]/State/[facility] Co de Phone Number [facility] [place] [address] documented in this encounter Visit Diagnoses Not [...] RN) documented in this encounter Care Teams Card Doffer Relationship Specialty Start Date End Date Magdalena Acosta MD [address] [place] [address] PCP - General Family Medicine 02/05/23 documented as of this encounter
--- OUTSIDE RECORDS SUMMARY | 2024-06-20 15:49 | XMS_ITS | Encounter Summary ---
Author Organization [place] [address] Care Team Providers Care Shotweld Operator Name Role Phone Magdalena Acosta MD Primary Care Provider [phone] Reason for Visit * Reason Comments Aortic Stenosis Coronary Artery Disease Hypertension Encounter Details Date Type Department Care Team (Latest Contact Info) Description 11/16/2023 11:40 AM EDT TH Visit (TeleHealth) Cardiology at [address] [address] Jay Maza PA [facility] [place] [address] Aortic valve stenosis, etiology of cardiac valve [...] from the original note were not included. [facility] Interventional Cardiology CARDIOLOGY TELE VISIT NOTE 11/16/23 Patient: Purnima Thacker Prior to the initiation of our discussion, the risks and benefits of tele health visits were discussed, and the patient consented verbally to this being a virtual telehealth visit in lieu of an in person office visit. CARDIOLOGISTS: Antelmo Sharma MD ([facility] Cards) Maria Luz Mejia MD ([facility] Cards - [facility]) Problem List: Aortic valve stenosis: [...] fraction I35.0 Mild coronary artery disease by [facility] 11/09/2022 I25.10 Heart failure with [...] notable for coronary artery protection given low fibjo-sv-iauyuvdo distance. There was no obstruction post Valve [...] had a very reassuring recent echo in [facility], in scanned docs. LVEF 55%. [...] leads Confirmed by MD Harshil, Haris Bell ([id number]) on 05/10/2023 8:11:46 AM Cardiac Cath 11/09/2022 [...] in one year. EKATERINA Thompson Time spent: [id number] 0-5min [id number] 6-10min [id number] 11-15min x [id number] 16-20min 4656VIJ7 21-30min 8073OOO0 31-40min 6834DPW4 40+ min Jay Maza PA-C Interventional Cardiology [facility] Pager [phone] documented in this encounter Plan of Treatment Upcoming Encounters Date Type Department Care Team (Late st Contact Info) Description 06/23/2024 2:00 PM EST Office Visit Hematology [place] [address] Markel Borjas MD [facility] [address] [place] [address] 11/02/2024 12:00 PM EDT Appointment Pulmonology at [place] [address] 11/02/2024 1:00 PM EDT Office Visit Rheumatology at [address] Magdalena Peralta MD [facility] [place] [address] 03/01/2025 4:15 PM EDT Office Visit Dermatology at [place] [address] [facility] [place] [address] Marek Bonilla MD [address] [place] [address] documented as of this encounter Visit Diagnoses Diagnosis Aortic valve stenosis, etiology of cardiac valve disease unspecified Coronary artery disease, unspecified vessel or lesion type, unspecified whether angina present, unspecified whether [place] or transplanted heart documented in this encounter Care Teams Shotweld Operator Relationship Specialty Start Date End Date Magdalena Acosta MD [address] [place] [address] PCP - General Family Medicine 02/05/23 documented as of this encounter
--- OUTSIDE RECORDS SUMMARY | 2024-06-20 15:49 | XMS_ITS | Encounter Summary ---
Author Organization [facility]ly [facility] Address [facility] [place] [address] Care Team Providers Care Food And Nutrition Supervisor Name Role Phone Magdalena Acosta MD Primary Care Provider [phone] Encounter Details Date Type Department Care Team [...] EST Office Visit Hematology [place] [address] Markel Borjas MD [facility] [address] HEMATOLOGY [place] [address] 11/02/2024 12:00 PM EDT Appoint[place] [address] 11/02/2024 1:00 PM EDT Office [place] [address] Magdalena Peralta MD [facility] [place] [address] 03/01/2025 4:15 PM EDT Office Visit Dermatology at [place] [address] [place] [address] Marek Bonilla MD [address] [place] [address] documented as of this encounter Visit Diagnoses Not on filedocumented in this encounter Care Teams Food And Nutrition Supervisor Relationship Specialty Start Date End Date Magdalena Acosta MD [address] [address] PCP - General Family Medicine 02/05/23 documented as of this encounter
--- OUTSIDE RECORDS SUMMARY | 2024-06-20 15:49 | XMS_ITS | Encounter Summary ---
Author Organization [facility] Address [facility] [place] [address] Care Team Providers Care Municipal Clerk Name Role Phone Magdalena Acosta MD Primary Care Provider [phone] Encounter Details Date Type Department Care Team (Late st Contact Info) Description 06/01/2024 10:00 AM EDT Office [place] [address] Magdalena Peralta MD [facility] [place] [address] Mixed connective tissue disease Social History Tobacco [...] through Care Everywhere. * Knee Arthritis: Exercises (Khmer) documented in this encounter Progress Notes * [...] 1:5120 speckled; VIC negative; Myositis panel with DIE LAY OUT WORKER ab 149.1 (positive); Anti U1RNP IgG [...] osteoporosis is not an indication for superintendent container terminal systemic steroid therapy as it is [...] Dr. Roma Peralta MD Rheumatology Fellow Pager: [phone] * Kuldeep Brandon MD - 06/01/2024 10:00 [...] and therapeutic plans. Kuldeep Brandon MD Staff Lobbyist documented in this encounter Plan of Treatment Upcoming Encounters Date Type Department Care Team (Late st Contact Info) Description 06/23/2024 2:00 PM EST Office Visit Hematology [place] [address] Markel Borjas MD [facility] [address] [place] [address] 11/02/2024 12:00 PM EDT Appointment [place] [address] 11/02/2024 1:00 PM EDT Office [place] [address] Magdalena Peralta MD [facility] [place] [address] 03/01/2025 4:15 PM EDT Office Visit Dermatology at [place] [address] [place] [address] Marek Bonilla MD [address] [place] [address] Scheduled Orders Name Type Priority Associated Diagnoses Orde r Schedule Common Pulmonary Function Test PFT Routine Mixed connective tissue disease Expected: 10/31/2024, Expires: 06/01/2025 documented as of this encounter Visit Diagnoses Diagnosis Mixed connective tissue disease Other specified diffuse disease of connective tissue documented in this encounter Care Teams Municipal Clerk Relationship Specialty Start Date End Date Magdalena Acosta MD [address] [place] [address] PCP - General Family Medicine 02/05/23 documented as of this encounter
--- OUTSIDE RECORDS SUMMARY | 2024-06-20 15:49 | XMS_ITS | Encounter Summary ---
Author Organization [facility] [place] [address] Care Team Providers Care Composing Room Machinist Apprentice Name Role Phone Magdalena Acosta MD Primary Care Provider [phone] Reason for Referral * Diagnostic Test (Routine) - New Request Specialty Diagnoses / Procedures Referred By Contac t Referred To Contact Cardiology Diagnoses S/P TAVR (transcatheter aortic valve replacement) Procedures Echocardiogram Transthoracic Antelmo Sharma MD [facility] [place] [address] [facility] [place] [address] Referral ID Status Reason Start Date Expiration Date Visits Requested Visits Authorized [id number] New Request Specialty Service Requested 12/16/2023 12/15/2024 1 1 Encounter Details Date Type Department Care Team (Late st Contact Info) Description 12/16/2023 Orders Only Cardiology at [address] [address] Antelmo Sharma MD [facility] [place] [address] S/P TAVR (transcatheter aortic valve [...] EST Office Visit Hematology and Oncology at [place] [phone] Markel Borjas MD [facility] [address] HEMATOLOGY [place] [address] 11/02/2024 12:00 PM EDT Appointment Pulmonology at [place] [address] 11/02/2024 1:00 PM EDT Office Visit Rheumatology at [place] [address] Magdalena Peralta MD [facility] [place] [address] 03/01/2025 4:15 PM EDT Office Visit Dermatology at [place] [address] [facility] [place] [address] Marek Bonilla MD [address] [facility] [place] [address] Scheduled Orders Name Type Priority Associated Diagnoses Order Schedule Echocardiogram Transthoracic Echocardiography Routine S/P TAVR (transcatheter aortic valve replacement) Expected: 12/16/2023 (Approximate), Expires: 06/17/2024 EKG 12 Lead ECG Routine S/P TAVR (transcatheter aortic valve replacement) Expected: 12/16/2023 (Approximate), Expires: 06/17/2024 documented as of this encounter Visit Diagnoses Diagnosis S/P TAVR (transcatheter aortic valve replacement) documented in this encounter Care Teams Composing Room Machinist Apprentice Relationship Specialty Start Date End Date Magdalena Acosta MD [address] [place] [address] PCP - General Family Medicine 02/05/23 documented as of this encounter
--- OUTSIDE RECORDS SUMMARY | 2024-06-20 15:49 | XMS_ITS | Encounter Summary ---
Author Organization [facility] Address [facility] [place] [address] Care Team Providers Care Karate Black Belt Name Role Phone Magdalena Acosta MD Primary Care Provider [phone] Reason for Visit * Reason Comments Follow-up * Consultation (Routine) - Closed Specialty Diagnoses / Procedures Referred By Contac t Referred To Contact Hematology and Oncology Diagnoses Anemia, unspecified type Consuelo Guerrero, DO [address] [place] [address] [place] [address] [facility] Hem Onc [address] [place] [address] Referral ID Status Reason Start Date Expiration Date V isits Requested Visits Authorized [id number] Closed Consult, Test & Treat 04/11/2024 04/11/2025 1 1 Encounter Details Date Type Department Care Team (Late st Contact Info) Description 05/12/2024 10:00 AM EDT Office Visit [place] [address] Markel Borjas MD [facility] [address] [place] [address] Chronic idiopathic neutropenia Social History Tobacco Use Types Packs/Day Years Used Date Smoking Tobacco: Never Smokeless Tobacco: Never Alcohol Use Standard Drinks/Week Comments No 0 (1 standard drink = 0.6 oz pur e alcohol) none [facility] Inpatient Questions Answer Date Recorded Does Anyone [...] 05/12/2024 10:00 AM EDT Hematology Outpatient Clinic [facility] Hematology [...] TOUCH PREP, CLOT SECTION, CORE BIOPSY); [OSR# [id number], COLLECTED 06/23/2016, 19 SLIDES]: 1. 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 Extremities: No edema. Labs: Hgb= 11.7 Dzzl=818 ANC= 2.5 Assessment: 60 year-old woman found [...] EST Office Visit [place] [address] Markel Borjas MD [facility] [address] [place] [address] 11/02/2024 12:00 PM EDT [place] [address] 11/02/2024 1:00 PM EDT [place] [address] Magdalena Peralta MD [facility] [place] [address] 03/01/2025 4:15 PM EDT Office Visit Dermatology at [place] [address] [place] [address] Marek Bonilla MD [address], [place] [address] documented as of this encounter Results * Reticulocyte Count (05/12/2024 8:56 AM EDT) [facility] Reticulocyte % 1.20 0.70 - 2.50 % 05/12/2024 9:[address] [facility] Retic Abs # 0.0397 0.0200 - 0.1100 x10(6)/mcL 05/12/2024 9:[address] [facility] Immature Retic% 8.1 0.5 - 13.8 % 05/12/2024 9:[address] [facility] Reticulated Hgb 35.2 29.8 - 39.4 pg 05/12/2024 9:[address] [facility] Blood VENOUS BLOOD SPECIMEN / Unknown Venipuncture / Unknown 05/12/2024 8:56 AM EDT 05/12/2024 8:56 AM EDT Tova Russell DOG OR ANIMAL SITTER HEMATOLOGY ORDERABL ES [facility] [place] [address] * (ABNORMAL) Comprehensive metabolic panel Non-fasting (05/12/2024 8:56 AM EDT) [facility] Glucose 86 65 - 199 mg/dL 05/12/2024 11:[address] [facility] Comment:Glucose Concentratio n >=200 [...] mL/min/1. 73 m?? 05/12/2024 11:[address] [facility] Comment: This patient's [...] Fasting Status No 05/12/2024 11:[address] [facility] Blood VENOUS BLOOD SPECIMEN / Unknown Venipuncture / Unknown 05/12/2024 8:56 AM EDT 05/12/2024 8:56 AM EDT Tova Russell DOG OR ANIMAL SITTER CHEMISTRY ORDERABLE S Performing Organization Address City/State/[facility] Co de Phone Number [facility] [place] [address] * (ABNORMAL) CBC (with Diff) (05/12/2024 8:56 AM EDT) White Blood Cell 3.47(L) 4.00 - 9.50 x10(3)/mc L 05/12/2024 9:[address] [facility] Red Blood Cell 3.31(L) 4.00 - 5.21 x10(6)/mc L 05/12/2024 9:[address] [facility] Hemoglobin 11.1(L) 11.7 - 15.5 g/dL 05/12/2024 9:[address] [facility] Hematocrit 33.2(L) 35.7 - 45.8 % 05/12/2024 9:[address] [facility] Mean Cell Volume 100.3(H) 82.6 - 94.4 fL 05/12/2024 9:[address] [facility] Mean Cell Hemoglobin 33.5(H) 27.1 [...] EDT 05/12/2024 8:56 AM EDT Tova Russell DOG OR ANIMAL SITTER HEMATOLOGY ORDERABL ES [facility] [place] [address] documented in this encounter Visit Diagnoses Diagnosis Chronic idiopathic neutropenia Other neutropenia documented in this encounter Care Teams Karate Black Belt Relationship Specialty Start Date End Date Magdalena Acosta MD [address] [place] [address] PCP - General Family Medicine 02/05/23 documented as of this encounter
--- OUTSIDE RECORDS SUMMARY | 2024-06-20 15:49 | XMS_ITS | Encounter Summary ---
Author Organization [facility] Address [facility] [place] [address] Care Team Providers Care Narrative Writer Name Role Phone Magdalena Acosta MD Primary Care Provider [phone] Encounter Details Date Type Department Care Team [...] EST Office Visit [place] [address] Markel Borjas MD [facility] [address] [place] [address] 11/02/2024 12:00 PM EDT [place] [phone] 11/02/2024 1:00 PM EDT [place] [address] Magdalena Peralta MD [facility] [place] [address] 03/01/2025 4:15 PM EDT Office Visit Dermatology at [place] [address] [facility] [place] [phone] Marek Bonilla MD [address] [place] [address] documented as of this encounter Visit Diagnoses Not on filedocumented in this encounter Care Teams Narrative Writer Relationship Specialty Start Date End Date Magdalena Acosta MD [address] [place] [address] PCP - General Family Medicine 02/05/23 documented as of this encounter
--- OUTSIDE RECORDS SUMMARY | 2024-06-20 15:49 | XMS_ITS | Encounter Summary ---
[place] [address] Care Team Providers Care Pin Or Clip Fastener Name Role Phone Magdalena Acosta MD Primary Care Provider [phone] Reason for Visit * Reason Onset Date Comments Pre Procedure Call 03/01/2024 DAPT hold for EGD and colo? Encounter Details Date Type Department Care Team (Late st Contact Info) Description 03/01/2024 Telephone Cardiology at [address] [phone] Cynthia Monsalve RN Pre Procedure Call (DAPT [...] safe. Jay Message above left with Yenifer (mechanical designer), who would be leaving this note in patient's chart for providers to schedule patient. No further questions or needs at this time. This nurse stated, note will be placed regarding this call in our chart for patient. Kezia Whitney RN, BSN Ambulatory Cardiology Clinic, [facility] [phone] * Telephone Encounter - Cynthia Monsalve RN - 03/01/2024 2:09 PM EDT Nurse Veronica from [facility] called, requesting a hold on ASA and/or Plavix for the patient's anticipated EGD and colonoscopy. -Cynthia Monsalve RN documented in this encounter Plan of Treatment Upcoming Encounters Date Type Department Care Team (Late st Contact Info) Description 06/23/2024 2:00 PM EST Office Visit Hematology [place] [address] Markel Borjas MD [facility] [place] [address] 11/02/2024 12:00 PM EDT Appointment [place] [address] 11/02/2024 1:00 PM EDT Office [place] [address] Magdalena Peralta MD [facility] [place] [address] 03/01/2025 4:15 PM EDT Office Visit Dermatology at [address] [place] [address] Marek Bonilla MD [address], [place] [address] documented as of this encounter Visit Diagnoses Not on filedocumented in this encounter Care Teams Pin Or Clip Fastener Relationship Specialty Start Date End Date Magdalena Acosta MD [address] [place] [address] PCP - General Family Medicine 02/05/23 documented as of this encounter
--- OUTSIDE RECORDS SUMMARY | 2024-06-20 15:49 | XMS_ITS | Encounter Summary ---
[place] [address] Care Team Providers Care Mobile Service Rv Technician Name Role Phone Magdalena Acosta MD Primary Care Provider [phone] Encounter Details Date Type Department Care Team (Latest Contact Info) Description 10/05/2023 10:52 AM EST - 10/05/2023 11:59 PM [facility] Hospital [place] [address] Mixed connective tissue disease Discharge Disposition: Home [...] topically 2 times daily as needed. 10/22/2022 [employer]Packet NetworksTouch Verio test strips Strip USE DAILY 01/03/2022 [employer] Delica Plus Lancet 33 gauge Misc USE [...] Office Visit Hematology [place] [address] Markel Borjas MD [facility] [address] HEMATOLOGY [place] [address] 11/02/2024 12:00 PM EDT Appointment [place] [address] 11/02/2024 1:00 PM EDT Office [place] [address] Magdalena Peralta MD [facility] [place] [address] 03/01/2025 4:15 PM EDT Office Visit Dermatology at [place] [address] [place] [address] Marek Bonilla MD [address], [place] [address] documented as of this encounter Procedures Procedure [...] PFT FEV1/FVC Pre-BD Z-Score 0 COMPAS PFT UGA84-34 Actual Pre-BD 2.41 % COMPAS PFT OZF89-85 Predicted 1.8 % COMPAS PFT ZBN45-96 Pre-BD % of Predicted 134 % COMPAS PFT NCF62-36 Pre-BD Z-Score 0.81 COMPAS PFT DLCO Hb [...] documented in this encounter Care Teams Mobile Service Rv Technician Relationship Specialty Start Date End Date Magdalena Acosta MD [address] [place] [address] PCP - General Family Medicine 02/05/23 documented as of this encounter
--- OUTSIDE RECORDS SUMMARY | 2024-06-20 15:49 | XMS_ITS | Encounter Summary ---
Author Organization [facility] Address [facility] Erika [facility] [place] [address] Care Team Providers Care Photographer Apprentice Lithographic Name Role Phone Magdalena Acosta MD Primary Care Provider [phone] Encounter Details Date Type Department Care Team (Latest Contact Info) Description 07/08/2023 12:35 PM EST Laboratory Appointment Lab 3L [place] [address] S/P TAVR (transcatheter aortic valve [...] EST Office Visit Hematology [place] [address] Markel Borjas MD [facility] [address] HEMATOLOGY [place] [address] 11/02/2024 12:00 PM EDT Appointment [place] [address] 11/02/2024 1:00 PM EDT Office [place] [address] Magdalena Perlata MD [facility] [place] [address] 03/01/2025 4:15 PM EDT Office Visit Dermatology at [place] [address] [place] [address] Marek Bonilla MD [address] [place] [address] documented as of this encounter Procedures Procedure [...] 11:56 AM EST) Neutrophil % 73.2 % [facility] Neutrophil Absolute 3.40 1.70 - 6.10 x10(3)/mc L [facility] Lymph % 16.1 % [facility] Lymphocytes Abs 0.8(L) 0.9 - 3.2 x10(3)/mc L [facility] Monocyte % 9.7 % [facility]AL [facility] Monocyte Abs 0.4 0.3 - 0.9 x10(3)/mc L [facility] Eos % 0.4 % [facility] Eosinophils Abs 0.0 0.0 - 0.4 x10(3)/mc L [facility] Basophil % 0.4 % [facility] ITAL [facility] Baso Absolute 0.0 [...] 0.01 0.00 - 0.04 x10(3)/ L [facility] Blood 07/08/2023 11:5 6 AM EST 07/08/2023 12:02 PM EST Narrative Resulting Agency Comment Spec In Lab Minh [facility]BAR HEMATOLOGY ORDERABLE S Performing Organization Address City/State/[facility] Co de Phone Number [facility] [place] [address] * (ABNORMAL) Hemogram (07/08/2023 11:56 AM EST) White Blood Cell 4.6 4.0 - 9.5 x10(3)/ L [facility] Red Blood Cell 3.34(L) 4.00 - 5.21 x10(6)/mc L [facility] Hemoglobin 11.0(L) 11.7 - 15.5 g/dL [facility] Hematocrit 33.2(L) 35.7 - 45.8 % [facility] Mean Cell Volume 99.4(H) 82.6 - 94.4 fL [facility] Mean Cell Hemoglobin 32.9(H) 27.1 - 32.0 pg [facility] Mean Cell Hemoglobin Concentration 33.1 31.7 - 35.0 g/dL [facility] Platelet 166 145 - 357 x10(3)/mc L [facility] RDW Standard Deviation 47.1(H) 37.0 - 46.0 fL [facility] RDW coefficient of variation 13.0 11.5 - 14.1 % [facility] Mean Platelet Volume 9.0 7.6 - 12.9 fL [facility] NRBC% auto 0.0 % [facility] ITAL [facility] NRBC Absolute 0.000 0.000 - 0.000 x10(3)/mc L [facility] Blood 07/08/2023 11:5 6 AM EST 07/08/2023 12:02 PM EST Narrative Resulting Agency Comment Spec In Lab Minh TOBAR HEMATOLOGY ORDERABLE S [facility] [place] [address] * (ABNORMAL) Comprehensive metabolic panel (non-fasting) (07/08/2023 11:56 AM EST) Glucose 93 65 - 199 mg/dL [facility] Comment:Diabetes: >=200 mg/d L plus symptoms Blood Urea Nitrogen 19(H) 8 - 18 mg/dL [facility] Creatinine 0.81 0.70 - 1.20 mg/dL [facility] Sodium 142 135 - [...] LABORATORY Calcium 10.2 8.5 - 10.5 mg/dL [facility] Protein, Total 7.4 6.1 - 8.0 g/dL [facility] Albumin 4.1 3.2 - 5.2 g/dL [facility] Aspartate Aminotransferase 24 0 - 30 unit/L [facility] Alanine Aminotransferase 12 0 - 30 unit/L [facility] Alkaline Phosphatase 93 35 [...] City/State/[facility] Co de Phone Number [facility] [place] [address] documented in this encounter Visit Diagnoses Diagnosis S/P TAVR (transcatheter aortic valve replacement) Severe aortic stenosis Aortic valve disorders documented in this encounter Care Teams Photographer Apprentice Lithographic Relationship Specialty Start Date End Date Magdalena Acosta MD [address] [place] [address] PCP - General Family Medicine 02/05/23 documented as of this encounter
--- OUTSIDE RECORDS SUMMARY | 2024-06-20 15:49 | XMS_ITS | Encounter Summary ---
Author Organization [facility] [place] [address] Care Team Providers Care Mrb Engineer Name Role Phone Magdalena Acosta MD Primary Care Provider [phone] Encounter Details Date Type Department Care Team (Late st Contact Info) Description 05/18/2024 Interpretation Only [address] [address] Magdalena Acosta MD [address] [place], [place] [id number] Social History Tobacco Use Types Packs/Day Years [...] EST Office Visit Hematology [place] [address] Markel Borjas MD [facility] DR HEMATOLOGY [place] [address] 11/02/2024 12:00 PM EDT Appointment [place] [address] 11/02/2024 1:00 PM EDT Office Visit [place] [address] Magdalena Peralta MD [facility] [place] [address] 03/01/2025 4:15 PM EDT Office Visit Dermatology at [place] [address] [place] [address] Marek Bonilla MD [address], [place] [address] documented as of this encounter Procedures Procedure Name Priority Date/Time Associated Diagnosis Comments MAMMO SCREENING CAD BILATERAL (CH) Routine 05/18/2024 11:21 AM EDT documented in this encounter Results * MAMMO SCREENING CAD BILATERAL (CH) (05/18/2024 11:21 AM EDT) PT CLASS O RAD ADMITDTTM [id number] RAD PT RAD INFO [id number]^Dave ^Magdalena RAD EXAM DESC [facility]^MG Mammo Digital Screening Bilateral.^RIS RAD WORKSTATION ID [...] questions please contact the health home care specialist that requested your imaging first. ? Electronically signed by: Rocael Villatoro MD, [facility] ([phone]), at 05/18/2024 3:[address] ??[id number] Narrative 05/18/2024 3:05 PM EDT EXAMINATION: MG [...] have questions please contactthe health home care specialist that requested [place] [address] Magdalena Acosta MD [facility] documented in this encounter Visit Diagnoses Not on filedocumented in this encounter Care Teams Mrb Engineer Relationship Specialty Start Date End Date Magdalena Acosta MD [address] [place] [address] PCP - General Family Medicine 02/05/23 documented as of this encounter
--- OUTSIDE RECORDS SUMMARY | 2024-06-20 15:49 | XMS_ITS | Encounter Summary ---
Author Organization [facility] [place] [address] Care Team Providers Care Fiber Optic Splicer Name Role Phone Magdalena Acosta MD Primary Care Provider Encounter Details Date Type Department Care Team (Late st Contact Info) Description 05/27/2023 Refill Cardiology at [address] [phone] Vero Marrero, RN Social History Tobacco Use [...] PM EDT TC to Nurse Sosa at [facility] to relay response from Jay Maza [...] after that 75mg once daily. Jay Marrero pneumatic riveter Clinic at [facility] [address] * Telephone Encounter - Vero Marrero RN - 05/27/2023 1:46 PM EDT VM received from triage nurse Sosa at [facility] stating patient was seen today by [...] more affordable option, if possible. Vero Marrero pneumatic riveter Clinic at [facility] [address] documented in this encounter Plan of Treatment Upcoming Encounters Date Type Department Care Team (Late st Contact Info) Description 06/23/2024 2:00 PM EST Office Visit Hematology and Oncology at [place] [phone] Markel Borjas MD [facility] [place] [address] 11/02/2024 12:00 PM EDT Appointment Pulmonology at [place] [phone] 11/02/2024 1:00 PM EDT Office Visit Rheumatology at [place] [phone] Magdalena Peralta MD [facility] [place] [address] 03/01/2025 4:15 PM EDT Office Visit Dermatology at [place] [address] [place] [address] Marek Bonilla MD [address], [place] [address] documented as of this encounter Visit Diagnoses Diagnosis Aortic valve stenosis, etiology of cardiac valve disease unspecified documented in this encounter Care Teams Fiber Optic Splicer Relationship Specialty Start Date End Date Magdalena Acosta MD [address] [place] [address] PCP - General Family Medicine 02/05/23 documented as of this encounter
--- OUTSIDE RECORDS SUMMARY | 2024-06-20 15:49 | XMS_ITS | Encounter Summary ---
Author Organization Count Includes [facility] Address [facility] [place] [address] Care Team Providers Care Fiscal Specialist Name Role Phone Magdalena Acosta MD Primary Care Provider [phone] Encounter Details Date Type Department Care Team [...] EST Office Visit Hematology [place] [address] Markel Borjas MD [facility] [address] HEMATOLOGY [place] [address] 11/02/2024 12:00 PM EDT Appointment [place] [address] 11/02/2024 1:00 PM EDT Office [place] [address] Magdalena Peralta MD [facility] DR [place] [address] 03/01/2025 4:15 PM EDT Office Visit Dermatology at [place] [address] [facility] [address] [place] [address] Marek Boinlla MD [address] [place] [address] documented as of this encounter Visit Diagnoses Not on filedocumented in this encounter Care Teams Fiscal Specialist Relationship Specialty Start Date End Date Magdalena Acosta MD [address] [place] [address] PCP - General Family Medicine 02/05/23 documented as of this encounter
--- OUTSIDE RECORDS SUMMARY | 2024-06-20 15:49 | XMS_ITS | Encounter Summary ---
Author Organization [facility] Address [facility] [place] [address] Care Team Providers Care Film Cleaner Name Role Phone Magdalena Acosta MD Primary Care Provider [phone] Encounter Details Date Type Department Care Team [...] EST Office Visit [place] [address] Markel Borjas MD [facility] [address] HEMATOLOGY [place] [address] 11/02/2024 12:00 PM EDT [place] [address] 11/02/2024 1:00 PM EDT Office [place] [address] Magdalena Peralta MD [facility] [address] [place] [address] 03/01/2025 4:15 PM EDT Office Visit Dermatology at [place] [address] [facility] [place] [address] Marek Bonilla MD [address] [place] [address] documented as of this encounter Visit Diagnoses Not on filedocumented in this encounter Care Teams Film Cleaner Relationship Specialty Start Date End Date Magdalena Acosta MD [address] [place] [address] PCP - General Family Medicine 02/05/23 documented as of this encounter
--- OUTSIDE RECORDS SUMMARY | 2024-06-20 15:49 | XMS_ITS | Encounter Summary ---
Author Organization [facility] Address [facility] [address] Care Team Providers Care Electrical Systems Designer Name Role Phone Magdalena Acosta MD Primary Care Provider [phone] Encounter Details Date Type Department Care Team (Latest Contact Info) Description 05/12/2024 9:00 AM EDT Laboratory Appointment Lab at [facility] Hematology Oncology [address] [place] [phone] S/P TAVR (transcatheter aortic valve replacement); [...] EST Office Visit [place] [phone] Markel Borjas MD [facility] [address] [place] [address] 11/02/2024 12:00 PM EDT [place] [address] 11/02/2024 1:00 PM EDT Office [place] [address] Magdalena Peralta MD [facility] [place] [address] 03/01/2025 4:15 PM EDT Office Visit Dermatology at [place] [address] [place] [address] Marek Bonilla MD [address], [place] [address] documented as of this encounter Procedures Procedure [...] EDT 05/12/2024 8:56 AM EDT Tova Russell PATHOLOGY ASSISTANT HEMATOLOGY ORDERABL ES [facility] [place] [address] * (ABNORMAL) Comprehensive metabolic panel Non-fasting (05/12/2024 8:56 AM EDT) Glucose 86 65 - 199 mg/dL 05/12/2024 11:36 AM EDT [facility] Comment:Glucose Concentratio n >=200 mg/dL plus symptoms is consistent with Diabetes Mellitus. Blood Urea Nitrogen 20(H) 8 - 18 mg/dL 05/[facility]24 [facility] Creatinine 0.88 0.70 - 1.20 mg/dL 05/12/2024 11:36 AM T [facility] Sodium 145 135 - 145 mMol/L 05/12/2024 11:36 AM [facility] Potassium 4.6 3.5 - 5.0 mMol/L 05/12/2024 11:36 AM [facility] Chloride 109(H) 98 - 107 mMol/L 05/12/2024 11:36 AM [facility] Carbon Dioxide 21(L) 22 - 31 mMol/L 05/12/2024 11:36 AM T [facility] Anion Gap 15 5 - 15 mMol/L 05/12/2024 11:36 AM [facility] Comment:Not Calculated. Calcium 9.9 8.5 - 10.5 mg/dL 05/12/2024 11:36 AM EDT [facility] Protein, Total 7.3 6.1 - 8.0 g/dL 05/12/2024 11:36 AM EDT [facility] Albumin 4.5 3.2 - 5.2 g/dL 05/12/2024 11:36 AM EDT [facility] Aspartate Aminotransferase 24 <=30 unit/L 05/12/2024 11:36 AM [facility] Alanine Aminotransferase 14 0 - 30 unit/L 05/12/2024 11:36 AM [facility] Alkaline Phosphatase 98 35 - 105 unit/L 05/12/2024 11:36 AM [facility] Bilirubin, Total 0.2 <=1.3 mg/dL 05/12/2024 11:36 AM T [facility] Est Glomerular Filtration Rate - Female 72 mL/min/1. 73 m?? 05/12/2024 11:36 AM [facility] Comment: This patient's estimated [...] Fasting Status No 05/12/2024 11:36 AM T [facility] Blood VENOUS BLOOD SPECIMEN / Unknown Venipuncture / Unknown 05/12/2024 8:56 AM EDT 05/12/2024 8:56 AM EDT Tova Russell PATHOLOGY ASSISTANT CHEMISTRY ORDERABLE S [facility] [place] [address] * (ABNORMAL) CBC (with Diff) (05/12/2024 8:56 AM EDT) White Blood Cell 3.47(L) 4.00 - 9.50 x10(3)/mc L 05/12/2024 9:32 AM EDT [facility] Red Blood Cell 3.31(L) 4.00 - 5.21 x10(6)/mc L 05/12/2024 9:32 AM [facility] Hemoglobin 11.1(L) 11.7 - 15.5 g/dL 05/12/2024 9:32 AM [facility] Hematocrit 33.2(L) 35.7 - 45.8 % 05/12/2024 9:32 AM [facility] Mean Cell Volume 100.3(H) 82.6 - 94.4 fL 05/12/2024 9:32 AM [facility] Mean Cell Hemoglobin 33.5(H) 27.1 - 32.0 pg 05/12/2024 9:32 AM [facility] Mean Cell Hemoglobin Concentration 33.4 31.7 - 35.0 g/dL 05/12/2024 9:32 AM [facility] Platelet 142(L) 145 - 357 x10(3)/mc L 05/12/2024 9:32 AM [facility] Mean Platelet Volume 8.7 7.6 - 12.9 fL 05/12/2024 9:32 AM [facility] RDW Standard Deviation 44.4 37.0 - 46.0 fL 05/12/2024 9:32 AM [facility] RDW coefficient of variation 12.0 11.5 - 14.1 % 05/12/2024 9:32 AM [facility] NRBC% auto 0.0 % 05/12/2024 9:32 AM [facility] NRBC Absolute <0.01 <0.01 x10(3)/mc L 05/12/2024 9:32 AM [facility] Neutrophil % 69.7 % 05/12/2024 9:32 AM [facility] Neutrophil Absolute (ANC) - Automated 2.42 1.70 - 6.10 x10(3)/mc L 05/12/2024 9:32 AM EDT [facility] Lymph % 16.7 % 05/12/2024 9:32 AM EDT [facility] Lymph Absolute 0.58(L) 0.90 - 3.20 x10(3)/mc L 05/12/2024 9:32 AM EDT [facility] Monocyte % 12.1 % 05/12/2024 9:32 AM EDT [facility] Monocyte Absolute 0.42 0.30 - 0.90 x10(3)/mc L 05/12/2024 9:32 AM EDT [facility] Eos % 0.6 % 05/12/2024 9:32 AM EDT [facility] Eos Absolute <0.04 0.00 - 0.40 x10(3)/mc L 05/12/2024 9:32 AM EDT [facility] Basophil % 0.6 % 05/12/2024 9:32 AM EDT [facility] Baso Absolute <0.04 0.00 - 0.10 x10(3)/mc L 05/12/2024 9:32 AM EDT [facility] Immature Gran % 0.3 % 9:32 AM EDT [facility] Immature Gran Absolute <0.04 0.00 - 0.04 x10(3)/mc L 05/12/2024 9:32 AM EDT [facility] Blood VENOUS BLOOD SPECIMEN / Unknown Venipuncture / Unknown 05/12/2024 8:56 AM EDT 05/12/2024 8:56 AM EDT Tova Russell PATHOLOGY ASSISTANT HEMATOLOGY ORDERABL ES [facility] [place] [address] documented in this encounter Visit Diagnoses Diagnosis S/P TAVR (transcatheter aortic valve replacement) Chronic idiopathic neutropenia Other neutropenia documented in this encounter Care Teams Electrical Systems Designer Relationship Specialty Start Date End Date Magdalena Acosta MD [address] [place] [address] PCP - General Family Medicine 02/05/23 documented as of this encounter
--- OUTSIDE RECORDS SUMMARY | 2024-06-20 15:49 | XMS_ITS | Encounter Summary ---
Author Organization [facility] [place] [address] Care Team Providers Care Roller Shop Utility Worker Name Role Phone Magdalena Acosta MD Primary Care Provider [phone] Reason for Referral * Diagnostic Test (Routine) - Closed Specialty Diagnoses / Procedures Referred By Contac t Referred To Contact Cardiology Diagnoses S/P TAVR (transcatheter aortic valve replacement) Procedures Echocardiogram Transthoracic Vinod Juárez PA [facility] [place] [address] [facility] [place] [address] Referral ID Status Reason Start Date Expiration Date V isits Requested Visits Authorized [id number] Closed Specialty Service Requested 05/22/2023 05/21/2024 1 1 Reason for Visit * Diagnostic Test (Routine) - Closed Specialty Diagnoses / Procedures Referred By Contac t Referred To Contact Cardiology Diagnoses S/P TAVR (transcatheter aortic valve replacement) Procedures Echocardiogram Transthoracic Vinod Juárez PA [facility] [place] [address] [facility] [place] [address] Referral ID Status Reason Start Date Expiration Date V isits Requested Visits Authorized [id number] Closed Specialty Service Requested 05/22/2023 05/21/2024 1 1 Encounter Details Date Type Department Care Team (Latest Contact Info) Description 07/08/2023 10:19 AM EST - 07/08/2023 11:59 PM EST Hospital Encounter Non-[place] [address] Alirio Esparza MD S/P TAVR (transcatheter aortic [...] EST Office Visit Hematology [place] [address] Markel Borjas MD [facility] [place] [address] 11/02/2024 12:00 PM EDT Appointment [place] [address] 11/02/2024 1:00 PM EDT Office [place] [address] Magdalena Peralta MD [facility] [place] [address] 03/01/2025 4:15 PM EDT Office Visit Dermatology at [place] [address] [place] [address] Marek Bonilla MD [address] [place] [address] documented as of this encounter Procedures Procedure [...] EST Narrative 07/08/2023 12:26 PM EST [address] [place] [address] ? Echocardiogram Report Name: KIRSTIE, ONESIMO M ?Study Date: 07/08/2023 10:31 AMBP: 118/60 mmHg ? Patient Location: 4A : 1955 ? Height: 155 cm ? Account: [id number] Age: 67 yrs ? Weight: 74 kg Gender: Female ?BSA: 1.7 m2 Ordering Physician: ALIRIO ESPARZA Referring Physician: VINOD JUÁREZ Performed By: Felicia Norris RDCS Reason For Study: S/P TAVR Exam Location: [facility]. Interpretation Summary Left ventricular systolic function is [...] no significant change (post-procedure). Procedure Limited - 80740. Doppler - 43332. Color Doppler - 51174. Satisfactory quality. This study is limited because [...] Note Lee Kincaid MD - 07/08/2023 1 [place] [address] Echocardiogram Report Name: ONESIMO THACKER Study Date: 0:31 AMBP: 118/60 mmHg Patient Location: : 1955 Height: 155 cm Account: [id number] Age: 67 yrs Weight: 74 kg Gender: Female BSA: 1.7 m2 Ordering Physician: ALIRIO ESPARZA Referring Physician: VINOD JUÁREZ Performed By: Felicia Norris RDCS Reason For Study: S/P TAVR Exam Location: [facility]. Interpretation Summary Left ventricular systolic function is [...] is nosignificant change (post-procedure). Procedure Limited - 68757. Doppler - 06928. Color Doppler - 79807. Satisfactoryquality. This study is limited because of [...] replacement) documented in this encounter Care Teams Roller Shop Utility Worker Relationship Specialty Start Date End Date Magdalena Acosta MD [address] [place] [address] PCP - General Family Medicine 02/05/23 documented as of this encounter
--- OUTSIDE RECORDS SUMMARY | 2024-06-20 15:49 | XMS_ITS | Encounter Summary ---
[place] [address] Care Team Providers Care Manager Play Name Role Phone Magdalena Acosta MD Primary Care Provider [phone] Reason for Referral * Consultation (Routine) - Closed Specialty Diagnoses / Procedures Referred By Contac t Referred To Contact Hematology and Oncology Diagnoses Anemia, unspecified type Consuelo Guerrero DO [address] [place] [address] [address] [place] [address] [facility] Hem Onc [address] [place] [address] Referral ID Status Reason Start Date Expiration Date V isits Requested Visits Authorized [id number] Closed Consult, Test & Treat 04/11/2024 04/11/2025 1 1 Encounter Details Date Type Department Care Team (Late st Contact Info) Description 04/11/2024 Transcribe Orders eDH Incoming Referrals [phone] Consuelo Guerrero DO [address] [place] [address] [address] [place] [address] Anemia, unspecified type Social History Tobacco Use Types Packs/Day Years Used Date Smoking Tobacco: Never Smokeless Tobacco: Never Alcohol Use Standard Drinks/Week Comments No 0 (1 standard drink = 0.6 oz pur e alcohol) none [facility] Inpatient Questions Answer Date Recorded [...] Visit Hematology [place] [address] Markel Borjas MD [facility] [address] [place] [address] 11/02/2024 12:00 PM EDT Appointment Pulmonology at [place] [address] 11/02/2024 1:00 PM EDT Office Visit Rheumatology at [place] [address] Magdalena Peralta MD [facility] [place] [address] 03/01/2025 4:15 PM EDT Office Visit Dermatology at [address] [place] [address] Marek Bonilla MD [address] [place] [address] Scheduled Referrals Name Type Priority Associated Diagnoses Orde r Schedule Referral to Hematology and Oncology Outpatient Referral Routine Anemia, unspecified type Ordered: 04/11/2024 documented as of this encounter Visit Diagnoses Diagnosis Anemia, unspecified type documented in this encounter Care Teams Manager Play Relationship Specialty Start Date End Date Magdalena Acosta MD [address] [place] [address] PCP - General Family Medicine 02/05/23 documented as of this encounter
--- OUTSIDE RECORDS SUMMARY | 2024-06-20 15:49 | XMS_ITS | Encounter Summary ---
Author Organization [facility] Address [facility] [place] [address] Care Team Providers Care Ap Operator Name Role Phone Magdalena Acosta MD Primary Care Provider [phone] Reason for Visit * Reason Comments Coronary Artery Disease Hypertension Aortic Stenosis Encounter Details Date Type Department Care Team (Latest Contact Info) Description 07/20/2023 4:40 PM EST TH Visit (TeleHealth) Cardiology at [address] [address] Jay Maza PA [facility] [place] [address] HFrEF (heart failure with reduced ejection fraction); [...] Maza PA - 07/20/2023 4:40 PM EST [facility] Heart [...] lieu of an in person office visit. Fire Prevention Inspector: Antelmo Sharma MD ([facility] Cards) Maria Luz Mejia MD ([facility] cards) [...] fraction I35.0 Mild coronary artery disease by [facility] 11/09/2022 I25.10 Heart failure with reduced ejection [...] notable for coronary artery protection given low yvwfq-el-egkpeqye distance. There was no obstruction post Valve deployment, but the stent could not be removed safely, so it was deployed. 4.0 mm x 30mm in left main. She was loaded on brilinta aka ticagrelor. Immediately post valve deployment, chest compressions to circulate central epinephrine which was administered given her hypotension, low LVEF, and low cardiac reserve. Next, the patient was transferred to [facility] for pressor and inotropic support. Pressors weaned overnight. Cardiac indices by thermodilution remained greater than 3 with continued Milrinone 0.125 mcg/kg/min. EKG the next day with NSR with stable MO/QRS intervals. Hemoglobin 7.8 today from 8.5, likely [...] arms and wrists. Successful right transfemoral TAVR Kyhuo-ec-Xvvjw with a 23 mm Lai 3 THV. [...] leads Confirmed by MD Harshil, Haris Bell ([id number]) on 05/10/2023 8:11:46 AM Cardiac Cath 11/09/2022 [...] in chart review and direct patient contact. [id number] 0-5min [id number] 6-10min [id number] 11-15min [id number] 16-20min x [id number] 21-30min [id number] 31-40min [id number] 40+ min Jay Maza PA-C Interventional Cardiology [facility] Heart and Vascular [facility] Pager [phone] documented in this encounter Plan of Treatment Upcoming Encounters Date Type Department Care Team (Late st Contact Info) Description 06/23/2024 2:00 PM EST Office Visit Hematology [place] [address] Markel Borjas MD [facility] [place] [address] 11/02/2024 12:00 PM EDT Appointment [place] [address] 11/02/2024 1:00 PM EDT Office [place] [address] Magdalena Peralta MD [facility] [place] [address] 03/01/2025 4:15 PM EDT Office Visit Dermatology at [place] [address] [address] Marek Bonilla MD [address] [facility] [place] [address] documented as of this encounter Visit Diagnoses Diagnosis HFrEF (heart failure with reduced ejection fraction) Hypertension, unspecified type Aortic valve stenosis, etiology of cardiac valve disease unspecified documented in this encounter Care Teams Ap Operator Relationship Specialty Start Date End Date Magdalena Acosta MD [address] [place] [address] PCP - General Family Medicine 02/05/23 documented as of this encounter
--- OUTSIDE RECORDS SUMMARY | 2024-06-20 15:49 | XMS_ITS | Encounter Summary ---
Author Organization [facility] Address [facility] [place] [address] Care Team Providers Care Auto Appraiser Name Role Phone Magdalena Acosta MD Primary Care Provider [phone] Encounter Details Date Type Department Care Team [...] EST Office Visit Hematology [place] [address] Markel Borjas MD [facility] [address] [place] [address] 11/02/2024 12:00 PM EDT Appoint[place] [address] 11/02/2024 1:00 PM EDT Office [place] [address] Magdalena Peralta MD [facility] [place] [address] 03/01/2025 4:15 PM EDT Office Visit Dermatology at [place] [address] [facility] [place] [address] Marek Bonilla MD [address], [address] [place] [address] documented as of this encounter Visit Diagnoses Not on filedocumented in this encounter Care Teams Auto Appraiser Relationship Specialty Start Date End Date Magdalena Acosta MD [address] [place] [address] PCP - General Family Medicine 02/05/23 documented as of this encounter
--- OUTSIDE RECORDS SUMMARY | 2024-06-20 15:49 | XMS_ITS | Encounter Summary ---
Author Organization [facility] Address [facility] [place] [address] Care Team Providers Care Automotive Machinist Apprentice Name Role Phone Magdalena Acosta MD Primary Care Provider [phone] Reason for Visit * Reason Onset Date Comments Medication Refill 05/24/2024 Encounter Details Date Type Department Care Team (Late st Contact Info) Description 05/24/2024 [place] [address] Magdalena Peralta MD [facility] [place] [address] Social History Tobacco Use Types Packs/Day Years Used Date Smoking Tobacco: Never Smokeless Tobacco: Never Alcohol Use Standard Drinks/Week Comments No 0 (1 standard drink = 0.6 oz pur e alcohol) none [facility] Inpatient Questions Answer Date Recorded [...] 200 mg tablet [facility] - [place], [place] - [address] [facility] [address] [facility] [address] documented in this encounter Plan of Treatment Upcoming Encounters Date Type Department Care Team (Late st Contact Info) Description 06/23/2024 2:00 PM EST Office Visit [place] [address] Markel Borjas MD [facility] [address] [place] [address] 11/02/2024 12:00 PM EDT [place] [address] 11/02/2024 1:00 PM EDT [place] [address] Magdalena Peralta MD [facility] [place] [address] 03/01/2025 4:15 PM EDT Office Visit Dermatology at [address] [place] [address] Marek Bonilla MD [address] [facility] [place] [address] documented as of this encounter Visit Diagnoses Not on filedocumented in this encounter Care Teams Automotive Machinist Apprentice Relationship Specialty Start Date End Date Magdalena Acosta MD [address] [place] [address] PCP - General Family Medicine 02/05/23 documented as of this encounter
--- OUTSIDE RECORDS SUMMARY | 2024-06-20 15:50 | XMS_ITS | Encounter Summary ---
Author Organization Formerly [facility], [facility] Address [facility] [place] [address] Care Team Providers Care Box Toe Buffer Name Role Phone Magdalena Acosta MD Primary Care Provider [phone] Reason for Referral * Diagnostic Test (Routine) - Closed Specialty Diagnoses / Procedures Referred By Contac t Referred To Contact Cardiology Diagnoses S/P TAVR (transcatheter aortic valve replacement) Procedures Echocardiogram Transthoracic Vinod Juárez PA [facility] [place] [address] [facility] [place] [address] Referral ID Status Reason Start Date Expiration Date V isits Requested Visits Authorized [id number] Closed Specialty Service Requested 05/22/2023 05/21/2024 1 1 * Home Health Care (Routine) - Closed Specialty Diagnoses / Procedures Referred By Contac t Referred To Contact Diagnoses S/P TAVR (transcatheter aortic valve replacement) Alirio Hudson MD [facility] CARDIOTHORACIC SURGERY [address] [facility] [address] [place] [address] Referral ID Status Reason Start Date Expiration Date V isits Requested Visits Authorized [id number] Closed Consult, Test & Treat 05/22/2023 11/18/2023 999 999 * Consultation (Routine) - Closed Specialty Diagnoses / Procedures Referred By Crispin maxwell Referred To Contact Cardiology Diagnoses S/P TAVR (transcatheter aortic valve replacement) Alirio Hudson MD [facility] [place] [address] Cardiac Rehab, [address] [place] [address] Referral ID Status Reason Start Date Expiration Date V isits Requested Visits Authorized [id number] Closed Consult, Test & Treat 05/22/2023 11/18/2023 36 36 * Diagnostic Test (Routine) - Closed Specialty Diagnoses / Procedures Referred By Crispin maxwell Referred To Contact Cardiology Diagnoses Aortic valve stenosis, etiology of cardiac valve disease unspecified Procedures Echocardiogram Transthoracic Transesophageal Echocardiogram (YUSRA) Radha Hollins MD [facility] [address] [facility] [place] [address] Referral ID Status Reason Start Date Expiration Date V isits Requested Visits Authorized [id number] Closed Specialty Service Requested 05/11/2023 05/10/2024 1 1 Reason for Visit * Auth/Cert (Routine) Specialty Diagnoses / Procedures Referred By Crispin maxwell Referred To Contact Diagnoses Symptomatic severe aortic stenosis with low ejection fraction NSTEMI, CHF Enrique Chua MD [facility] [place] [address] [facility] Referral ID Status Reason Start Date Expiration Date Visits Re quested Visits Authorized [id number] 1 1 Encounter Details Date Type Department Care Team (Latest Contact Info) Description 05/08/2023 9:14 AM EDT - 05/22/2023 10:46 AM EDT Hospital Encounter Heart and Vascular Unit Level 4 [place] [address] Enrique Chua MD [facility] [place] [address] Juan Luis Gonzalez MD [facility] [address] Radha Hollins MD [facility] [address] Alirio Hudson MD S/P TAVR (transcatheter aortic valve replacement) (Primary Dx); Aortic valve stenosis, etiology of cardiac valve disease unspecified; Symptomatic severe aortic stenosis with low ejection fraction; Heart failure with reduced ejection fraction due to heart valve disease; Mild coronary artery disease by [facility] 11/09/2022; Mixed connective tissue disease; Neck [...] Patient Age: 67 y.o. Birthdate: 1955 Language: Romansh Race: White Ethnicity: Not nor Admit Date: 05/08/2023 Discharge Date: 05/22/2023 Attending Physician: Alirio Hudson MD Follow-up Recommendations for Providers: Please continue routine management of cardiovascular risk factors including blood pressure, lipids,glucose, etc. Please note any medication changes. Patient to follow up with PCP, Magdalena Acosta MD, or Primary Industrial Security Analyst, Maria Luz Mejia MD, in ~ 7-10 days. Patient to follow up with Material Handling Supervisor, Dr. Antelmo Sharma, in 2 weeks with an EKG, Echo, CBC, and CMP. Patient to follow up with Nephrology, their office to arrange. Ojnb-Vzyvsw-zh interval: After initial 30 day follow-up appointment , all TAVR patients will follow-up again in one year with an echo. 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 Secondary Diagnoses: Active Hospital Problems Diagnosis S/P TAVR (transcatheter aortic valve replacement) Cardiogenic shock Symptomatic severe aortic stenosis with low ejection fraction Mild coronary artery disease by [facility] 11/09/2022 Heart failure with reduced [...] Tube Placement Right 05/18/2023 Laure Ricks PA [facility] INTERVENTIONL RAD PRG CATH PLMT LEFT HEART CATH & ARTS W/INJ & ANGIO IMG S&I N/A 11/09/2022 CORONARY ANGIOGRAPHY; W [facility],POSSIBLE PCI (WRVU 5.6) performed by Mario Alberto Escobedo MD at [facility] CATH LABS PRG COMBINED RIGHT & LEFT HEART CATH W/INJ L VENTRICULOGRAPHY, IMG S&I N/A 05/12/2023 COMBINED RIGHT & LEFT HEART CATH,INC INJ FOR L VENTRICULOGRAPHY (WRVU 5.99) performed by Antelmo Sharma MD at [facility] CATH LABS PRO AORTOPLAS FOR SUPRAVALV STEN N/A 09/21/2016 @AORTOPLASTY FOR SUPRAVALVULAR STENOSIS (WRVU 29.33) performed by Alirio Hudson MD at [facility] MAIN OR PRO REPLACE AORTIC VALVE (TAVR/FEDERICO)PERC FEMORAL ARTERY APPROACH 05/12/2023 @TRANSCATHETER AORTIC VALVE REPLACEMENT (TAVR), PERCUTANEOUS FEMORAL (WRVU 22.47) performed by Alirio Hudson MD at [facility] CATH LABS PRO REPLACEMENT PROSTHETIC AORTIC VALVE OPEN W CARDIOPULMONARY BYPASS HOMOGRF/STENT N/A 09/21/2016 @REPLACE AORTIC VALVE, OPEN, W\CPB, W\PROSTHETIC VALVE (WRVU 41.32) performed by Alirio Hudson MD at [facility] MAIN OR Prior To Admission Medications [...] Major Procedures/Operations: 05/12/23: Successful right transfemoral TAVR Bdeiz-eq-Fshth with a 23 mm Lai 3 THV. Left coronary protection with left main MINNA. Hospital Course: #Severe prosthetic s/p valve in valve TF TAVR #Low coronary heights s/p left main stent for coronary protection #Type 2 NSTEMI, present on arrival, resolved #Acute decompensated HFrEF #Cardiogenic shock #EVANS / Cardiorenal syndrome Purnima Thacker was admitted to [facility] on 05/08/2023 via the Cardiology [...] and she was brought to the chemical lab supervisor the following morning where Drs. Alirio Hudson [...] if you have questions. Please call your Material Handling Supervisor's office if you have any discharge or drainage from your procedural sites. Your Material Handling Supervisor, Dr. Antelmo Sharma and/or the Outsole Skiver may be reached at . Antibiotic prophylaxis: You will need to take antibiotics prior to many invasive tests and treatments, such as dental cleaning, which should be done every 6 months. Your primary care physician or your dentist can prescribe this medication. Please refer to the card with the [place] [employer] Guidelines for more information. You have been provided with a copy of this card. Please refer to the [place] [employer] Guidelines for more information. Good [...] friends, go to a movie, go to latter day, etc. Heavy activities: No hunting, skiing, jogging, [...] should resume a low fat, low cholesterol, [employer] Diet Driving: No restrictions. Shower/Bath: You may shower daily. No baths, soaking, or swimming for the first week. Wound care: Wash the sites daily with soap and rinse well, pat dry. Assess for any signs of infection such as increased redness, pain, warmth or drainage. Please call your cut off sawyer log's office if you have any discharge or drainage from your procedural sites. If there is a lot of swelling, apply mamta wraps during the day and remove at bedtime. Elevate your legs when you are sitting. Home oxygen therapy: N/A Follow up appointments: Please schedule a follow-up appointment with your PCP, Magdalena Acosta MD, or Primary Industrial Security Analyst in ~ 7-10 days. You have a follow-up appointment with your Material Handling Supervisor, Dr. Antelmo Sharma, in 2 weeks with an EKG, Echo, and labs prior to your appointment. You will need follow-up with Nephrology, their office will arrange. Wmcr-Oexhum-xn interval: After initial 30 day follow-up appointment , all TAVR patients will follow-up again in one year with an echo. Cardiac Rehabilitation: Purnima Thacker was seen today regarding participation in the outpatient Phase 2 Cardiac Rehabilitation at [facility]. The patient agrees to a referral to this program. The referral will be sent at discharge and the patient should be contacted by the Program within 1- 2 weeks from discharge. Future Appointments and Orders Future Appointments and Orders Future Appointments Provider Department Dept Phone 07/29/2023 11:00 AM Magdalena Peralta MD Rheumatology at [facility] Arrive at: [facility] [address] [phone] 02/11/2024 2:00 PM Marek Bonilla MD Dermatology at [place] Arrive at: [facility] [address] [phone] Future Orders Complete By Expires Type and Screen Future Surgery, [facility] SAME DAY PROGRAM ONLY) [XTM8988 Custom] 05/11/2023 Process Instructions: This test is intended ONLY for patients with upcoming surgery for testing prior to the day of surgery obtained through the same day program (4V or SDP). For ALL OTHER PATIENTS, order a Type and Screen (NFE056) This order includes the physician order for an ABO Recheck if requested by the Blood Bank. Scheduling Instructions: Comments: Questions: Date of surgery: CBC (with Diff) [DNL981 Custom] 06/05/2023 12/05/2023 Process Instructions: INCLUDES: WBC, RBC, Hgb, Hct, Platelets, RBC Indices and Differential Scheduling Instructions: Comments: Questions: Comprehensive metabolic panel (non-fasting) [LAB17 Custom] 06/05/2023 08/20/2023 Process Instructions: INCLUDES: Calcium, T Protein, Albumin, AST, ALT, Alk Phos, T Bili, BUN, Creat, GFR, Glucose, Lytes. Scheduling Instructions: Comments: Questions: Echocardiogram Transthoracic [81226 CPT(R)] 06/05/2023 12/05/2023 Process Instructions: Scheduling Instructions: Questions: Where will study be performed?: [facility] Clinics Does the patient have Congenital Heart Disease?: Does patient require sedation?: GA rationale: EKG 12 Lead [62313 CPT(R)] 06/05/2023 12/05/2023 Process Instructions: Scheduling Instructions: Questions: Which location will this be performed?: [place] Is a rhythm strip needed?: No [facility] [EQ161 Custom] As directed Process Instructions: Scheduling Instructions: Questions: Device Needed: WALKER (E0143) Patient Height (cm): 154.9 cm (5' 0.98) Patient Weight: 75.4 kg (166 lb 3.2 oz) Diagnosis: Unsteady gait when walking Referral to Cardiac Rehab [BPU077 Custom] As directed Process Instructions: If no progress note charted, please enter Clinical details in comments. Scheduling Instructions: Questions: My question or request is: s/p TAVR. Cardiac rehab at [facility]. Referral to Home Health [REF34 Custom] As directed Process Instructions: If no progress note charted, please enter Clinical details in comments. Scheduling Instructions: Comments: DOCUMENTATION FOR VNA SERVICES PATIENT'S LOCATION: Purnima Thacker [address] [place] [phone] (home) Pearl Maker's Name: Self and brother Raymond In discussion with the attending physician, it is certified that this patient is under his/her careand that MD, or an BIOFUELS PROCESSING TECHNICIAN, CITY LETTER CARRIER, or PA who is working directly with him/her, had a ekha-um-vcqz encounter that meets the physician ahst-zl-agtn encounter requirements with this patient on 05/22/2023. [...] for managing ADLs. HOME HEALTH CARE AGENCY: [facility]. [address] [place] [address] PHONE: [phone] FAX: [phone] Start of care: Ideally 24-48 hours after [...] [address] / [facility] [address] All VNA agencies which cover the area of patient's residence have been reviewed, either verbally joao writing, and patient has chosen the home health care agency noted. Questions: Disciplines Requested: Physical Therapy Occupational Therapy Discharge References/Attachments None Arrangements for VNA/home care: As above. (delete if no VNA) Signed: EKATERINA NAVARRETE [facility] Section of Cardiac Surgery Date: 05/22/2023 CC: Magdalena Acosta MD CornwallMario Alberto MD [address] [place] [address] documented in this encounter Discharge Instructions * Patient Instructions* Vinod Juárez PA - 05/22/2023 9:32 AM EDT TAVR Discharge Instructions: Call your doctor if: You have a fever of greater than 101 degrees, shaking chills, if you develop redness or drainage from your procedure sites, or if you have questions. Please call your Material Handling Supervisor's office if you have any discharge or drainage from your procedural sites. Your Material Handling Supervisor, Dr. Antelmo Sharma and/or the Outsole Skiver may be reached at . Antibiotic prophylaxis: You will need to take antibiotics prior to many invasive tests and treatments, such as dental cleaning, which should be done every 6 months. Your primary care physician or your dentist can prescribe this medication. Please refer to the card with the [place] [employer] Guidelines for more information. You have been provided with a copy of this card. Please refer to the [employer] Guidelines for more information. Good [...] friends, go to a movie, go to latter day, etc. Heavy activities: No hunting, skiing, jogging, [...] should resume a low fat, low cholesterol, [employer] Diet Driving: No restrictions. Shower/Bath: You may shower daily. No baths, soaking, or swimming for the first week. Wound care: Wash the sites daily with soap and rinse well, pat dry. Assess for any signs of infection such as increased redness, pain, warmth or drainage. Please call your cut off sawyer log's office if you have any discharge or drainage from your procedural sites. If there is a lot of swelling, apply mamta wraps during the day and remove at bedtime. Elevate your legs when you are sitting. Home oxygen therapy: N/A Follow up appointments: Please schedule a follow-up appointment with your PCP, Magdalena Acosat MD, or Primary Industrial Security Analyst in ~ 7-10 days. You have a follow-up appointment with your Material Handling Supervisor, Dr. Antelmo Sharma, in 2 weeks with an EKG, Echo, and labs prior to your appointment. You will need follow-up with Nephrology, their office will arrange. Kvjq-Qkgmwy-xo interval: After initial 30 day follow-up appointment , all TAVR patients will follow-up again in one year with an echo. Cardiac Rehabilitation: Purnima Thacker was seen today regarding participation in the outpatient Phase 2 Cardiac Rehabilitation at [facility]. The patient agrees to a [...] ins ( tef) Haven Ba, PT Pager: [phone] Physical Therapy Inpatient Rehabilitation Department * Nico [...] 0600 and on the weekends please page [phone]. * Jory Paniagua - 05/20/2023 3:52 PM [...] vomiting Last Bowel Movement: 05/20/23 Jory Paniagua Attending Psychiatrist * Tong Mike, OT - 05/20/2023 3:16 [...] Tube Placement Right 05/18/2023 Laure Ricks PA [facility] INTERVENTIONL RAD PRG CATH PLMT LEFT HEART CATH & ARTS W/INJ & ANGIO IMG S&I N/A 11/09/2022 CORONARY ANGIOGRAPHY; W [facility],POSSIBLE PCI (WRVU 5.6) performed by Mario Alberto Escobedo MD at [facility] CATH LABS PRG COMBINED RIGHT & LEFT HEART CATH W/INJ L VENTRICULOGRAPHY, IMG S&I N/A 05/12/2023 COMBINED RIGHT & LEFT HEART CATH,INC INJ FOR L VENTRICULOGRAPHY (WRVU 5.99) performed by Antelmo Sharma MD at [facility] CATH LABS PRO AORTOPLAS FOR SUPRAVALV STEN N/A 09/21/2016 @AORTOPLASTY FOR SUPRAVALVULAR STENOSIS (WRVU 29.33) performed by Alirio Hudson MD at [facility] MAIN OR PRO REPLACE AORTIC VALVE (TAVR/FEDERICO)PERC FEMORAL ARTERY APPROACH 05/12/2023 @TRANSCATHETER AORTIC VALVE REPLACEMENT (TAVR), PERCUTANEOUS FEMORAL (WRVU 22.47) performed by Alirio Hudson MD at [facility] CATH LABS PRO REPLACEMENT PROSTHETIC AORTIC VALVE OPEN W CARDIOPULMONARY BYPASS HOMOGRF/STENT N/A 09/21/2016 @REPLACE AORTIC VALVE, OPEN, W\CPB, W\PROSTHETIC VALVE (WRVU 41.32) performed by Alirio Hudson MD at [facility] MAIN OR Social History: Patient lives alone. Home Setup: Pt lives on one level with tub shower and three steps to enter. 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 Total Minutes, Occupational Therapy: 28 (7930-1378) OT Evaluation Code Rationale: Diagnosis & Pertinent Co-Morbidities affecting Plan of Care: see PMHx Occupational Profile & Client History: Brief Expanded Extensive x Assessment of Occupational Performance: 1-3 performance deficits 3-5 performance deficits x 5 + performance deficits Clinical Decision Making: Low Moderate High x Clinical decision making of moderate complexity using standardized patient assessment instrument and measurable assessment of functional outcome. Pager: [phone] TONG MIKE OT 05/20/2023 Occupational Therapy Rehabilitation [...] on the weekends please page [phone]. * Rylie Rodriguez MD - 05/19/2023 3:59 [...] and plan. Cynthia Blackburn MD Nephrology Pager: [phone] * Diana Espino - 05/19/2023 1:49 PM EDT Ferris Wheel Operator Encounter Note Patient Name: Purnima Thacker : [id number] MR#: [id number] Admit Date: 05/08/2023 9:14 AM Hospital Day [...] returning home alone. Anticipated Discharge Disposition (PT): longterm facility, swing bed rehabilitation facility Consult Recommendations: [...] as stated. Total Minutes, Physical Therapy: 38 ([phone]) Henrik Navarrete, CERTIFIED FORKLIFT OPERATOR Pager: [phone] Physical Therapy Inpatient Rehabilitation Department * Nico [...] 0600 and on the weekends please page [phone]. * Laure Ricks PA - 05/19/2023 7:56 [...] Ricks PA-C Interventional Radiology IR Team Pager [phone] * Consuelo Espinoza RN - 05/18/2023 4:13 PM EDT ANGIO NURSING DATABASE Name: Purnima Thacker Date of : 1955 AGE: 67 y.o. Address: [address] [place] [phone] (home) Mobile: No relevant phone numbers on [...] I35.0 Mild coronary artery disease by [facility] 11/09/2022 I25.10 Heart failure with [...] and plan. Cynthia Blackburn MD Nephrology Pager: [phone] * Magdalena Puri, FAMILY PRACTICE MD - 05/18/2023 10:51 AM EDT Images from the original note were not included. [place] [address] STRUCTURAL HEART DISEASE CONSULTATION NOTE PRIMARY CARE [...] stenosis. She is now status post TAVR Liwki-eo-Cxgul with a 23 mm Lai 3 THV 05/12/[address] Sharma. Preliminary findings: Successful right transfemoral TAVR Erftc-td-Zblqq with a 23 mm Lai 3 THV. [...] fraction Mild coronary artery disease by [facility] 11/09/2022 Heart failure with reduced [...] stenosis. She is now status post TAVR Qnvkv-xk-Wufia with a 23 mm Lai 3 THV 05/12/[address] Sharma. Janet TAVR case notable for coronary LAD protective MINNA. Status post TAVR, the patient was transferred to [facility] for pressor and inotropic support. Pressors [...] Magdalena Puri APRN Structural Heart Team Pager [phone] Team Office Please see addendum by Dr. Sharma for final plan and recommendations Associated attestation - Antelmo Sharma MD - 05/19/2023 10:52 PM EDT I have reviewed Magdalena Puri APRN's above history and I agree with the details as written. The assessment and plan were formulated in discussion with me and I agree with them as documented. Antelmo Sharma MD Pager [phone] * Nico Palacios PA - 05/18/2023 8:13 [...] 0600 and on the weekends please page [phone]. * Loli Hernandez, PT - 05/17/2023 5:27 [...] returning home alone. Anticipated Discharge Disposition (PT): longterm facility, swing bed rehabilitation facility Consult Recommendations: [...] plan as stated. Time IN / OUT: 1515-6303 Total Minutes, Physical Therapy: 54 Billing Code: te-sx2, te-f, gait LOLI HERNANDEZ PT Pager: [phone] Physical Therapy Inpatient Rehabilitation Department * Cynthia lBackburn MD - 05/17/2023 4:47 PM EDT NEPHROLOGY [...] Well controlled. Cynthia Blackburn MD Nephrology Pager: [phone] * Maggie Mara, FAMILY PRACTICE MD - 05/17/2023 8:26 AM EDT Cardiac Surgery [...] 0600 and on the weekends please page [phone]. * Guerda Del Valle - 05/16/2023 10:44 AM EDT Nutrition Services Note - Low Nutrition Acuity Purnima Thacker is a 67 y.o. female Reason for intervention: hospital day 9 Nutrition Plan: Continue diet order Encourage good PO Lasix and Zofran noted Added special serve: open containers Monitor weight Patient scheduled for a hospital day 9 nutrition evaluation. Training And Documentation Specialist met with pt at bedside. Pt reports that her appetite and PO has much improved since admission. Denies nausea/vomiting or trouble chewing/swallowing. Training And Documentation Specialist provided snack list but pt not interested in adding snacks at this time. Her only concern was that she is worried that she will eat too much which will cause too much pressure in her stomach. Training And Documentation Specialist assured pt and suggested eating smaller [...] Last Bowel Movement: 05/10/23 Guerda Del Valle Attending Psychiatrist * Vinod Juárez PA - 05/16/2023 10:19 [...] 0600 and on the weekends please page [phone]. * Michael Jeffers MD - 05/16/2023 8:11 AM EDT Images from the original note were not included. Hypertension-Nephrology Inpatient Follow-up Purnima Thacker [id number] 1955 ID: 67 y.o. old female seen [...] IRONSAT 12 (L) 05/16/2023 SFOLATE >20.0 07/03/2022 [id number] 07/03/2022 Lab Results Component Value Date [...] Dr. Ayoub. Please contact me at phone: [phone] or pager: [phone] with any questions. Michael Jeffers MD Nephrology [...] -Nephrology consulted, labs and renal US ordered -Vinton removed, ambulated around the unit -bilateral pleural [...] 0600 and on the weekends please page [phone]. * Hortencia Cody MD - 05/15/2023 2:07 [...] not included. Hypertension-Nephrology Inpatient Follow-up Purnima Thacker [id number] 1955 ID: 67 y.o. old female seen [...] HGB 7.8 (L) 05/13/2023 SFOLATE >20.0 07/03/2022 [id number] 07/03/2022 Lab Results Component Value Date [...] Dr. Ayoub. Please contact me at phone: [phone] or pager: [phone] with any questions. Michael Jeffers MD Nephrology [...] last 720 hours. T/L/D Art ETT CVL [place] ASSESSMENT, MANAGEMENT, and DECISION MAKIN y.o. female [...] outlined inthis evaluation. HAVEN BA, PT Pager: [phone] Physical Therapy Inpatient Rehabilitation Department Time IN / OUT: 1293-7905 Total time: Total Minutes, Physical Therapy: 30 [...] 0600 and on the weekends please page [phone]. * Antelmo Sharma MD - 05/14/2023 7:56 AM EDT Images from the original note were not included[place] [id number] STRUCTURAL HEART DISEASE CONSULTATION NOTE PRIMARY CARE [...] stenosis. She is now status post TAVR Lyade-wg-Boopx with a 23 mm Lai 3 THV 05/12/[address] Sharma. Preliminary findings: Successful right transfemoral TAVR Anwdv-ea-Orrjb with a 23 mm Lai 3 THV. [...] fraction Mild coronary artery disease by [facility] 11/09/2022 Heart failure with reduced [...] stenosis. She is now status post TAVR Wyrdz-lt-Ofhzf with a 23 mm Lai 3 THV 05/12/[address] Sharma. Janet TAVR case notable for coronary LAD protective MINNA. Status post TAVR, the patient was transferred to [facility] for pressor and inotropic support. Pressors [...] Brody Kaplan APRN Structural Heart Team Pager [phone] Team Office Please see addendum by Dr. [...] exposure. Nephrology consultationtoday. Antelmo Sharma MD Pager [phone] * Antelmo Cardenas RN - 05/14/2023 5:18 AM EDT Pt AOx4, complaining of mild/moderate generalized pain (states her Meloxicam is effective at home) currently refusing prn oxycodone. NAEON, hemodynamically stable on Milrinone, Maps >65, ST in tks436's down to NSR with frequent multifocal PVC's. [...] not included. [place] [address] STRUCTURAL HEART DISEASE PROGRESS NOTE PRIMARY CARE [...] stenosis. She is now status post TAVR Qvgys-es-Nxqxm with a 23 mm Lai 3 THV 05/12/[address] Sharma. Preliminary findings: Successful right transfemoral TAVR Zwbit-ph-Edkip with a 23 mm Lai 3 THV. [...] or perforation. Interval Events: - Transferred to [facility] post- TAVR for pressor/inotropic support (Levo, [...] fraction Mild coronary artery disease by [facility] 11/09/2022 Heart failure with reduced [...] stenosis. She is now status post TAVR Ktycw-dp-Mnkjl with a 23 mm Lai 3 THV [...] Brody Kaplan APRN Structural Heart Team Pager [phone] Team [...] DAPT moving forward. Antelmo Sharma MD Pager [phone] * Bonita Miguel PA - 05/13/2023 8:30 AM EDT Cardiac Surgery Progress Note Purnima Thacker is a 67 y.o. 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 PMH of s/p tissue AVR (2017), mixed connective tissue disease HTN, HLD, NICOLAS, diverticulosis, rosacea, essential tremor, and depression. 24h Events: From chemical lab supervisor for above procedure Extubated at ~1600 to [...] soft b/l, no evidence of hematoma. Tubes/Lines/Drains: Vinton, RIJ, A-line, Art, PIV Assessment/Plan: 67 y.o. [...] 0600 and on the weekends please page [phone]. * Onelia Schwartz MD - 05/12/2023 1:44 [...] fraction Mild coronary artery disease by [facility] 11/09/2022 Heart failure with reduced [...] FiO2 weaned to 40%. 1105: ABG 7.34/42/73/22 9639-0203: SBT performed and passed on these settings [...] PCP: Magdalena Acosta MD PCP phone number: [phone] Date of Admission: 05/08/2023 ( Hospital Day [...] 1447 PHART -- 7.34* 7.34* -- -- HES4WXU -- 30* 30* -- -- PO2ART -- 72* 81* -- -- QUB2QMG -- 16.0* 15.7* -- -- LACTATEVEN 2.4* 2.7* 2.7* 4.8* 2.9* VBG (Venous Blood Gas) Recent Labs 05/12/23 0700 05/12/23 0318 05/12/2310505/11/23193905/11/23 1447 LACTATEVEN 2.4* 2.7* 2.7* 4.8* 2.9* Mixed Venous Sat Recent Labs 05/12/23 0508 05/12/23 0321 05/12/23 0114 05/12/23 0030 L2UWZT0 30.7 32.7 37.3 25.1 Objective: Vitals Last [...] first. Electronically signed by: ALIX RUVALCABA MD, [facility] ([phone]), at 05/10/2023 1:[address] Cardiac for [...] first. Electronically signed by: Cullen Narayanan MD, [facility] ([phone]), at 05/11/2023 4:[address] Angiogram Abdomen [...] first. Electronically signed by: Eileen Gomes MD, [facility] ([phone]), at 05/11/2023 2:42 PM XR Chest One [...] first. Electronically signed by: Will Rowe MD, [facility] ([phone]), at 05/11/2023 11:57 PM XR Chest One [...] first. Electronically signed by: Will Rowe MD, [facility] ([phone]), at 05/12/2023 3:16 AM Assessment & Plan: [...] and inotrope. She is planned for a cpfwu-ok-asrew TAVR this morning, which should hopefully improve [...] FACC Section of Cardiovascular Medicine [facility] Radiographer Mammographermaster in chancery [facility] [...] fraction Mild coronary artery disease by [facility] 11/09/2022 Heart failure with reduced [...] 05/11/2023 4:11 PM EDT Reported off to STEAM HAND and pt transferred over in the bed for higher level of care. * Antelmo Sharma MD - 05/11/2023 9:45 AM EDT Images from the original note were not included. [place] [id number] STRUCTURAL HEART DISEASE CONSULTATION NOTE PRIMARY CARE [...] who had been referred for possible TAVR lrylu-dv-ufeds evaluation. Her primary symptoms are of dyspnea [...] [facility]. 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 She states [...] fraction Mild coronary artery disease by [facility] 11/09/2022 Heart failure with reduced [...] mL infusion 0-5,000 Units/hr Intravenous Continuous Klaudia eRid MD 19 mL/hr at 05/10/23 1702 950 [...] hour(s)) Lactate, whole blood, send to lab ([facility] Result Value Ref Range Lactate WB 3.1 (H) 0.5 - 2.2 mmol/L Heparin (unfractionated) Level Result Value Ref Range Heparin UFH Level 0.46 IU/mL Lactate, whole blood, send to lab ([facility] Result Value Ref Range Lactate WB [...] leads Confirmed by MD Harshil, Enrique Bell ([id number]) on 05/10/2023 8:11:46 AM Cardiac Cath 11/09/2022 [...] alert Dr. Hudson of her inpatient status, waverly primary cardiac surgeon. Based on recent clinic visit, tentative plan had been for TAVR JANET ferrera given her chronological age. Cardiac cath 11/09/2022 notable for non-obstructive coronary disease. TAVR CTAs planned for today. Will review her case with cardiac surgery to determine best timing and therapies for her valve intervention. Addendum 05/11/2023 6:48 PM Due to decompensating HFrEF, she was transferred to [facility] this afternoon for further management. TAVR CT imaging support for adequate ileofemoral access. Given her acute deterioration today, will planfor RTF TAVR on 05/12/2023. Bordy KaplanANURAG Structural Heart Disease Pager [phone] Please see addendum by Dr. Sharma for [...] signed and dated. Antelmo Sharma MD Pager [phone] * Harini Lance MD - 05/11/2023 6:06 AM EDT Images from the original note were not included. Cardiology Progress Note Patient info: Name: Purnima Thacker : 1955 PCP: Magdalena Acosta MD PCP phone number: [phone] Date of Admission: 05/08/2023 ( Hospital Day [...] first. Electronically signed by: ALIX RUVALCABA MD, [facility] ([phone]), at 05/10/2023 1:25 PM TTE: 05/08 -Left [...] 09/2016) Mild coronary artery disease by [facility] 11/09/2022 Hyperlipidemia, unspecified NICOLAS (obstructive [...] PCP: Magdalena Acosta MD PCP phone number: [phone] Date of Admission: 05/08/2023 ( Hospital Day [...] 09/2016) Mild coronary artery disease by [facility] 11/09/2022 Hyperlipidemia, unspecified NICOLAS (obstructive [...] PCP: Magdalena Acosta MD PCP phone number: [phone] Date of Admission: 05/08/2023 ( Hospital Day [...] Gas) No results found for: PHART, PO2ART, PID1RDO, ZTJ5XNC Microbiology: Microbiology Results (Last 30 days) No [...] PPx: Diet: Daily Healthy Menu Choices/Cardiac diet ([facility]-Diet) Lines: Peripheral IV Line - Single Lumen [...] 09/2016) Mild coronary artery disease by [facility] 11/09/2022 Hyperlipidemia, unspecified NICOLAS (obstructive [...] I35.0 Mild coronary artery disease by [facility] 11/09/2022 I25.10 Heart failure with [...] performed by Mario Alberto Escobedo MD at [facility] CATH LABS PRO AORTOPLAS FOR SUPRAVALV STEN N/A 09/21/2016 @AORTOPLASTY FOR SUPRAVALVULAR STENOSIS (WRVU 29.33) performed by Alirio Hudson MD at [facility] MAIN OR PRO REPLACEMENT PROSTHETIC AORTIC VALVE OPEN W CARDIOPULMONARY BYPASS HOMOGRF/STENT N/A 09/21/2016 @REPLACE AORTIC VALVE, OPEN, W\CPB, W\PROSTHETIC VALVE (WRVU 41.32) performed by Alirio Hudson MD at [facility] MAIN OR Social History and Habits: [...] I35.0 Mild coronary artery disease by [facility] 11/09/2022 I25.10 Heart failure with reduced ejection fraction due to heart valve disease I50.20, I38 Cardiogenic shock R57.0 S/P TAVR (transcatheter aortic valve replacement) Z95.2 Past Medical History: Diagnosis Date Anemia Past Surgical History: Procedure Laterality Date PRG CATH PLIA LEFT HEART CATH & ARTS W/INJ & ANGIO IMG S&I N/A 11/09/2022 CORONARY ANGIOGRAPHY; W [facility],POSSIBLE PCI (WRVU 5.6) performed by Mario Alberto Escobedo MD at [facility] CATH LABS PRO AORTOPLAS FOR SUPRAVALV STEN N/A 09/21/2016 @AORTOPLASTY FOR SUPRAVALVULAR STENOSIS (WRVU 29.33) performed by Alirio Hudson MD at [facility] MAIN OR PRO REPLACEMENT PROSTHETIC AORTIC VALVE OPEN W CARDIOPULMONARY BYPASS HOMOGRF/STENT N/A 09/21/2016 @REPLACE AORTIC VALVE, OPEN, W\CPB, W\PROSTHETIC VALVE (WRVU 41.32) performed by Alirio Hudson MD at [facility] MAIN OR Social History and Habits: [...] days, which prompted her to present to [facility]. She also endorses some intermittent retrosternal chest pain with exertion.She endorses some dizziness with exertion, but has not gotten faint or passed out. At [facility] she was noted to be afebrile, blood pressure 105/64, HR 120s, satting 95% on 2L NC. Labs from [facility] are below, of note she had [...] 89/59, which prompted the transfer to us. [facility] labs: CBC - Hgb 10.5 CMP - Cr 1.1 BNP 73564 HsTrop 1358 Lactate 1.6 D-dimer 1183 Interval History Patient was admitted to [facility] due to concern on low BP [...] Klaudia Reid MD Internal Medicine PGY-1 Pager [phone], M1-S1 Service Associated attestation - Juan Luis Gonzalez MD - 05/08/2023 10:00 PM EDT Cardiology Attending Addendum Active Hospital Problems Diagnosis Symptomatic severe aortic stenosis with low ejection fraction Heart failure with reduced ejection fraction due to heart valve disease Mild coronary artery disease by [facility] 11/09/2022 Hyperlipidemia, unspecified History of aortic valve replacement Resolved Hospital Problems No resolved problems to display. I have interviewed and examined the patient, reviewed the available data, and have discussed my findings, assessment and plan with the patient and the team on admission to S2 service (from [facility] service) today. I agree with Dr. [...] PCP: Magdalena Acosta MD PCP phone number: [phone] Date of Admission: 05/08/2023 ( Hospital Day 0 days ) Attending:Enrique Chua MD ID: Purnima Thacker is a 67 y.o. female w/ PMH of s/p bioprosthetic AVR in 2016 with recent concern for severe restenosis, HTN, HLD, mixed connective tissue disease, who presents in transfer from [facility] with worsening BONILLA and weight gain [...] four days, which promptedher to present to [employer]. She also endorses some intermittent retrosternal chest pain with exertion. She endorses some dizziness with exertion, but has not gotten faint or passed out. At [facility] she was noted to be afebrile, blood pressure 105/64, HR 120s, satting 95% on 2L NC. Labs from [facility] are below, of note she had [...] 89/59, which prompted the transfer to us. [facility] labs: CBC - Hgb 10.5 CMP - Cr 1.1 BNP 87670 HsTrop 1358 Lactate 1.6 D-dimer 1183 Vasoactive [...] tissue disease, who [facility] BONILLA and weight gain concerning [...] #Routine Diet: Daily Healthy Menu Choices/Cardiac diet ([facility]-Diet) DVT Prophylaxis: heparin gtt GI Prophylaxis: none Code Status: Attempt Cardiopulmonary Resuscitation - Inpatient Dispo: Pending clinical course Lincoln Sal MD Internal Medicine, PGY-1 Cardiology [facility] #[id number] 05/08/23 12:06 PM Cardiology Staff [...] to the planned procedure. Hand Hygiene: The gi technician did perform hand hygiene prior to [...] Successful arterial line placement. Crispin Timmons MD Outsole Skiver Associated attestation - Onelia Schwartz MD - [...] (flow was non-pulsatile) and appearance of blood. Vinton-Marily catheter was placed and locked at 55 [...] information for follow-up [facility], [facility] [address] [place] [address] Cardiac Rehab, [facility] [address] [place] [address] [place] [address] [facility], [facility] [address] [place] [address] Transportation: family or friend will provide *Brother [...] Type: *No Product type* / Secondary Insurance: [employer] [place] Prescription Coverage: Yes This plan was formulated with input from patient, family (please identify family/friend involved ifapplicable) and team. All are in agreement with plan. Aliza Martino MSN-Ed, RN ACM jumpbasting lining baster Office of Care Management Pager #[phone] * Plan of Care - Favian Mckeon [...] Chaudhary RN - 05/21/2023 4:46 PM EDTSummary: [facility] referral OFFICE OF CARE MANAGEMENT [...] Type: *No Product type* / Secondary Insurance: [employer] [facility] Last Physical Therapy Recommendation: (Home with assist from Brother; Friend arriving Tues) with walker, front wheeled Last Occupational Therapy Recommendation: swing bed rehabilitation facility, longterm facility (vs home with support for IADLs) [...] geographic area. They have requested referrals to: [facility] [address] [place] [address] [facility] @ [facility] [place] Note routed to a Offline Cutter who will communicate referrals to facilities and provide any required information. Transportation: family or friend will provide *Brother Raymond on Tuesday 05/22 at 1000 Barriers to discharge: Does not have home 22/02 assist available until tomorrow Tuesday 05/22 Plan going forward: Discharge home into the 22/02 home care of brother Raymond with [facility] and [facility] PT/OT services on Tuesday 05/22 [...] Attending: All Staff: Staff Role Juanita Almaguer Leather Grader Laure Ricks PA Physician Senior Compensation Consultant Magdalena Rodriguez finish sander Nurse Consuelo Espinoza RN Radiology Nurse Post-operative [...] Type: *No Product type* / Secondary Insurance: [employer] [place] Last Physical Therapy Recommendation: longterm facility, swing bed rehabilitation facility with to be determined Last Occupational Therapy Recommendation: with Plan for discharge is: Correction Facility / Swing Outpatient Agency/Support Group Needs: None Agency Referrals: Based on discussions with the multi-disciplinary healthcare team, the patient would benefit from SNF / Swing level of care at discharge. I have met with the patient to: discuss discharge planning needs. provide the [facility], Office of Care Management letter from the Metal Filer pertaining to rehab referrals. provide a letter [...] for referral. They have requested referrals to: [facility] [address] [place] [address] [facility] ([facility]) [address] [place] [address] (Accepts pts only after exhausting all other local SNF options) [facility] ([facility]) ([facility]) [address] [place] [address] PHONE: [phone] FAX: [phone] [facility] ([facility]) [facility]) [address] [place] [address] PHONE: [phone] FAX: [phone] Note routed to a Offline Cutter who will communicate referrals to facilities and [...] Crenshaw RN - 05/17/2023 10:25 AM EDT [facility] CARDIAC REHABILITATION Purnima Thacker was seen today regarding participation in the outpatient Phase 2 Cardiac Rehabilitation at [facility]. The patient agrees to a [...] from the original note were not included. [facility] NEPHROLOGY/HYPERTENSION CONSULT NOTE PATIENT: Purnima Thacker [...] in her course. She ultimately underwent a vmnvz-ix-eiwdw procedure on and tolerated it well (see operative details). [facility] on some [...] 1423 05/12/23 1105 PHART 7.39 7.37 7.34* HAO7BNG 33* 36 42 PO2ART 101 102 73* GJK7IAJ 19.5* 20.4 22.1 LACTATEVEN 1.5 1.8 2.8* KFF9GYR 40 40 40 PFRATIOART2 252 255 182 VBG (Venous Blood Gas) Recent Labs 05/12/23 1557 05/12/23 1423 05/12/23 1105 LACTATEVEN 1.5 1.8 2.8* Mixed Venous Sat Recent Labs 05/12/23 1425 05/12/23 0508 05/12/23 0321 M3WMYP2 59.9 30.7 32.7 LFT's: Recent Labs 05/14/23 0110 05/13/23 0115 05/12/23 0600 BILITOT 0.4 0.5 0.9 BILIDIR -- 0.3 -- ALBUMIN 3.6 3.0* 3.5 ALKPHOS 86 85 100 ALT 437* 903* 1,174* AST 319* 792* 1,435* No results found for: UPROTCREAT No results found for: TPROTEINPEP, ALBELECT No results found for: MICROALBUR, [id number] No results found for: HA1C Lab Results Component Value Date CALCIUM 8.5 05/14/2023 PHOS 4.7 (H) 05/08/2023 No results found for: 25OHVITD MICROBIOLOGY: ProcedureComponentValueUnitsDate/TimeUrine culture [[id number]]Collected: 05/11/231921Lab Status: Final resultSpecimen: Clean Catch UrineUpdated: [...] consulted for assessment if this patient needs OUTSOLE SKIVER. Atthis time, we can likely hold off on OUTSOLE SKIVER. Her volume status appears sufficient and her metabolic kanwal angements with mild acidosis is not too profound. Patient does not have significant uremic symptoms. We can hold off for today, but the patient is a high risk candidate for needing OUTSOLE SKIVER in future daysespecially if her Cr curve trends the direction it is for the next several days. S/p Bejms-ak-Nsdvl TF TAVR: Management per cardiology. On milrinone gtt. PLAN: - Please obtain following diagnostics: renal US, urinalysis, urine prot/Cr ratio, urine albumin/Cr ratio, CK, uric acid, serum osmol, daily VBGs - No acute indications for OUTSOLE SKIVER/dialysis. We will keep close eye on Cr trend, volume status, and metabolics to ensure patient still does not need OUTSOLE SKIVER as she ensues intrinsic renal recovery [...] M.H.A., M.A. PGY-V Nephrology-Hypertension Fellow Page # [phone] [facility] [address] 2nd floor, Vitamin Manager [address] [place] [address] * Care Management - Mario Alberto Olmos [...] Type: *No Product type* / Secondary Insurance: [facility] [place] Plan for discharge is: [...] CV at 0945. Was intubated in the chemical lab supervisor due to agitation. Maintained bedrest for 5 [...] Operative Note Patient Name: Purnima Thacker : [id number] MR#: [id number] Case Date: 05/12/2023 Surgeon: Surgeon(s) and Role: [...] procedure Note: Patient Name: Purnima Thacker : [id number] MR#: [id number] Case Date: 05/12/2023 Operators Surgeon: Surgeon(s) and [...] main with 4.0 x 30 mm Resolute Paullina Drug Eluting Stent Perclose x1 + Angio-seal 8 Fr x1, RFA Manual pressure, LFA Manual pressure, LFV Endotracheal intubation (performed by cardiac anesthesia) Preliminary findings: Successful right transfemoral TAVR Mlyos-bt-Rtsgr with a 23 mm Lai 3 THV. [...] MD, M.Sc. Structural Heart Disease Fellow Pager :[phone] Antelmo Sharma MD Pager [phone] * Op Note - Alirio Hudson MD - 05/12/2023 7:37 AM EDT Preop Diagnosis: Severe aortic stenosis, symptomatic. Postop Diagnosis: Same. Procedure: Transfemoral TAVR procedure with 23mm valve. Surgeon: Alirio Hudson M.D. Industrial Security Analyst: Danny CULP Procedure: The patient was taken to the chemical lab supervisor. The patient had monitored anesthesia care. 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 [place] [address] STRUCTURAL HEART DISEASE CONSULTATION NOTE PRIMARY CARE [...] who had been referred for possible TAVR ekphf-sa-afdwa evaluation. Her primary symptoms are of dyspnea [...] [facility]. 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 PROBLEM LIST: Patient Active Problem List Diagnosis Symptomatic severe aortic stenosis with low ejection fraction Mild coronary artery disease by [facility] 11/09/2022 Heart failure with reduced [...] hour(s)) Lactate, whole blood, send to lab ([facility] Result Value Ref Range Lactate WB [...] leads Confirmed by MD Harshil, Enrique Bell ([id number]) on 05/10/2023 8:11:46 AM Assessment and Plan: [...] Antelmo Sharma MD Structural Heart Disease Pager [phone] * Plan of Care - Sarahi Nice RN - 05/10/2023 3:55 AM EDTSumcaydeny: RN Note and Care Plan Sarahi Nice RN assumed care of pt at time of their arrival to room 362 from [facility]. Pt voices shortness of breath at [...] Transfer from another hospital Location: admitted from [facility] Reason for Hospitalization: Critical aortic stenosis, [...] receiving care in [place] must abide by [place] law. The hierarchy [...] Current DME: none Home Address confirmed as: [address] [place] [phone] Social & Family Supports: All names listed [...] Type: *No Product type* / Secondary Insurance: [employer] [facility] [place] ONLY if patient has Medicare A&B - Does this patient have secondary insurance?: Yes ; Prescription Coverage: Yes Preferred Pharmacy: updated [facility] Status: Patient is a : No Primary Care Provider confirmed: Magdalena Acosta MD [phone] Patient/Caregiver Goals of Treatment: Potential Needs for [...] of a 2 story home with 2 [facility]. Patient is independent with ADL's at [...] of care planning. Alie Bradshaw RN, CM Pager-[phone] * Plan of Care - Emily Lucero RN - 05/08/2023 2:54 PM EDT OUTCOME EVALUATION NOTE: OUTCOME SUMMARY: Pt arrived from [facility]. A&O, no c/o pain or SOB. [...] EST Office Visit [place] [phone] Markel Borjas MD [facility] [place] [address] 11/02/2024 12:00 PM EDT [place] [phone] 11/02/2024 1:00 PM EDT [place] [address] Magdalena Peralta MD [facility] [place] [address] 03/01/2025 4:15 PM EDT Office Visit Dermatology at [address] [address] Marek Bonilla MD [address], [place] [address] Scheduled Referrals Name Type Priority Associated Diagnoses [...] Heart Cath W/Inj L Ventriculography, Img S&I ([id number]) 05/12/2023 7:37 AM EDT Aortic valve stenosis, [...] EST Narrative 07/08/2023 12:26 PM EST [address] [place] [address] ? Echocardiogram Report Name: PURNIMA THACKER ?Study Date: 07/08/2023 10:31 AMBP: 118/60 mmHg ? Patient Location: 4A : 1955 ? Height: 155 cm ? Account: [id number] Age: 67 yrs ? Weight: 74 kg [...] no significant change (post-procedure). Procedure Limited - 71055. Doppler - 70579. Color Doppler - 58510. Satisfactory quality. This study is limited because [...] Note Lee Kincaid MD - 07/08/2023 [address] [place] [address] Echocardiogram Report Name: PURNIMA THACKER Study Date: 310:31 AMBP: 118/60 mmHg Patient Location: 4A : 1955 Height: 155 cm Account: [id number] Age: 67 yrs Weight: 74 kg Gender: [...] is nosignificant change (post-procedure). Procedure Limited - 20281. Doppler - 77913. Color Doppler - 62591. Satisfactoryquality. This study is limited because of [...] LABORATORY Creatinine 0.81 0.70 - 1.20 mg/dL [facility] Sodium 142 135 - [...] Lab Alirio Hudson MD CHEMISTRY ORDERABLE S [facility] [place] [place] [address] * (ABNORMAL) Basic Metabolic Panel (non-fasting) (05/22/2023 3:57 AM EDT) Glucose 88 65 - 199 mg/dL [facility] LABORATORY Comment:Diabetes: >=200 mg/d L plus symptoms Blood Urea Nitrogen 21(H) 8 - 18 mg/dL [facility] Creatinine 0.69(L) 0.70 - 1.20 mg/dL [facility] Sodium 136 135 - 145 mmol/L [facility] Potassium 3.6 3.5 - 5.0 mmol/L [facility] Comment: Please note: ??Patients with WBC >100,000 may have falsely elevated Potassium levels. ??For accurate Potassium quantification in these patients send serum separator tube (gold top) for subsequent determinations. ??Contact the Clinical Chemistry Laboratory if there are any questions. Chloride 102 98 - 107 mmol/L [facility] Carbon Dioxide 23 22 - 31 mmol/L [facility] Anion Gap 11 5 - 15 mmol/L [facility] Calcium 8.6 8.5 - 10.5 mg/dL [facility] Est Glomerular Filtration Rate 95 >=60 mL/min/1. 73 m?? [facility] [...] Resulting Agency Comment Spec In Lab Mara [place] [facility]ACT[facility] MD CHEMISTRY ORDERABL ES [facility] [place] [place] [address] * (ABNORMAL) Basic Metabolic Panel (non-fasting) (05/21/2023 5:06 AM EDT) Glucose 87 65 - 199 mg/dL [facility] Comment:Diabetes: >=200 mg/d L plus symptoms Blood Urea Nitrogen 25(H) 8 - 18 mg/dL [facility] Creatinine 0.84 0.70 - 1.20 mg/dL [facility] Sodium 136 135 - 145 mmol/L [facility] Potassium 3.6 3.5 - 5.0 mmol/L [facility] Comment: Please note: ??Patients with WBC >100,000 may have falsely elevated Potassium levels. ??For accurate Potassium quantification in these patients send serum separator tube (gold top) for subsequent determinations. ??Contact the Clinical Chemistry Laboratory if there are any questions. Chloride 102 98 - 107 mmol/L [facility] Carbon Dioxide 26 22 - 31 mmol/L [facility] Anion Gap 8 5 - 15 mmol/L [facility] Calcium 8.9 8.5 - 10.5 mg/dL [facility] Est Glomerular Filtration Rate 76 >=60 mL/min/1. 73 m?? [facility] [...] Narrative Resulting Agency Comment Spec In Lab [facility] FAMILY PRACTICE MD CHEMISTRY ORDERABL ES Performing Organization Address [facility] Co de Phone Number [facility] [place] [place] [address] * Lavender Tube HOLD (05/20/2023 2:52 AM EDT) Lavender Hold Sample in lab. [facility] Blood Venous Draw / Unknown 05/20/2023 2:52 AM EDT 05/20/2023 3:04 AM EDT [facility] FAMILY PRACTICE MD HEMATOLOGY ORDERAB LES Performing Organization Address City/[facility]/ZIP Co de Phone Number [facility] [place] [place] [address] * (ABNORMAL) Basic Metabolic Panel (non-fasting) (05/20/2023 2:52 AM EDT) Glucose 152 65 - 199 mg/dL [facility] Comment:Diabetes: >=200 mg/d L plus symptoms Blood Urea Nitrogen 33(H) 8 - 18 mg/dL [facility] Creatinine 0.82 0.70 - 1.20 mg/dL [facility] Sodium 137 135 - 145 mmol/L [facility] Potassium 3.7 3.5 - 5.0 mmol/L [facility] Comment: Please note: ??Patients with WBC >100,000 may have falsely elevated Potassium levels. ??For accurate Potassium quantification in these patients send serum separator tube (gold top) for subsequent determinations. ??Contact the Clinical Chemistry Laboratory if there are any questions. Chloride 99 98 - 107 mmol/L [facility] Carbon Dioxide 22 22 - 31 mmol/L [facility] Anion Gap 16(H) 5 - 15 mmol/L [facility] Calcium 9.0 8.5 - 10.5 mg/dL [facility] Est Glomerular Filtration Rate 78 >=60 mL/min/1. 73 m?? [facility] [...] Agency Comment Spec In Lab Mara Serrano FAMILY PRACTICE MD CHEMISTRY ORDERABL ES [facility] [place] [place] [address] * (ABNORMAL) Potassium (05/20/2023 2:52 AM EDT) Potassium 3.4(L) 3.5 - 5.0 mmol/L [facility] [...] Agency Comment Spec In Lab Mara Serrano FAMILY PRACTICE MD CHEMISTRY ORDERABL ES [facility] [place] [place] [address] * XR Chest PA & Lateral (Generic) [...] EDT) Glucose 93 65 - 199 mg/dL [facility] Comment:Diabetes: >=200 mg/d L plus symptoms Blood Urea Nitrogen 45(H) 8 - 18 mg/dL [facility] Creatinine 1.02 0.70 - 1.20 mg/dL [facility] Sodium 138 135 - 145 mmol/L [facility] Potassium 3.9 3.5 - 5.0 mmol/L [facility] Comment: Please note: ??Patients with WBC >100,000 may have falsely elevated Potassium levels. ??For accurate Potassium quantification in these patients send serum separator tube (gold top) for subsequent determinations. ??Contact the Clinical Chemistry Laboratory if there are any questions. Chloride 102 98 - 107 mmol/L [facility] Carbon Dioxide 26 22 - 31 mmol/L [facility] Anion Gap 10 5 - 15 mmol/L [facility] Calcium 9.7 8.5 - 10.5 mg/dL [facility] Est Glomerular Filtration Rate 60 >=60 mL/min/1. 73 m?? [facility] [...] Agency Comment Spec In Lab Mara Serrano FAMILY PRACTICE MD CHEMISTRY ORDERABL ES [facility] [place] [place] [address] * IR Chest Tube Placement Right (05/18/2023 [...] Kristopher Salgado MD 05/18/2023 Alirio Hudson MD [facility] [place] ORDER[place]LES * (ABNORMAL) Basic Metabolic Panel (non-fasting) (05/18/2023 2:54 AM EDT) Glucose 95 65 - 199 mg/dL [facility] Comment:Diabetes: >=200 mg/d L plus symptoms Blood Urea Nitrogen 71(H) 8 - 18 mg/dL [facility] Comment:result rechecked-[facility] Creatinine 1.64(H) 0.70 - 1.20 mg/dL [facility] Comment:result rechecked-[facility] Sodium 137 135 - 145 mmol/L [facility] Potassium 3.7 3.5 - 5.0 mmol/L [facility] Comment: Please note: ??Patients with WBC >100,000 may have falsely elevated Potassium levels. ??For accurate Potassium quantification in these patients send serum separator tube (gold top) for subsequent determinations. ??Contact the Clinical Chemistry Laboratory if there are any questions. Chloride 100 98 - 107 mmol/L [facility] Carbon Dioxide 24 22 - 31 mmol/L [facility] Anion Gap 13 5 - 15 mmol/L [facility] Calcium 9.7 8.5 - 10.5 mg/dL [facility] Est Glomerular Filtration Rate 34(L) >=60 mL/min/1. 73 m?? [facility] Comment: This patient's estimated [...] Agency Comment Spec In Lab Mara Maggie FAMILY PRACTICE MD CHEMISTRY ORDERABL ES [facility] [place] [place] [address] * XR Chest PA & Lateral (Generic) [...] ? Electronically signed by: Ghassan Reyes MD, [facility] ??([phone]), at 05/17/2023 11:46 AM Narrative 05/17/2023 11:46 [...] first. Electronically signed by: Ghassan Reyes MD, [facility]([phone]), at 05/17/2023 11:46 AM Alirio Hudson MD IMG DX ORDERABLES * (ABNORMAL) Comprehensive metabolic panel (non-fasting) (05/17/2023 4:35 AM EDT) Glucose 89 65 - 199 mg/dL [facility] Comment:Diabetes: >=200 mg/d L plus symptoms Blood Urea Nitrogen 97(H) 8 - 18 mg/dL [facility] Creatinine 2.97(H) 0.70 - 1.20 mg/dL [facility] Comment:result rechecked-JSJ Sodium 135 135 - 145 mmol/L [facility] Potassium 4.1 3.5 - 5.0 mmol/L [facility] Comment: Please note: ??Patients with WBC >100,000 may have falsely elevated Potassium levels. ??For accurate Potassium quantification in these patients send serum separator tube (gold top) for subsequent determinations. ??Contact the Clinical Chemistry Laboratory if there are any questions. Chloride 97(L) 98 - 107 mmol/L [facility] Carbon Dioxide 22 22 - 31 mmol/L [facility] Anion Gap 16(H) 5 - 15 mmol/L [facility] Calcium 9.6 8.5 - 10.5 mg/dL [facility] Protein, Total 6.5 6.1 - 8.0 g/dL [facility] Albumin 3.7 3.2 - 5.2 g/dL [facility] Aspartate Aminotransferase 58(H) 0 - 30 unit/L [facility] Alanine Aminotransferase 66(H) 0 - 30 unit/L [facility] Alkaline Phosphatase 86 35 - 105 unit/L [facility] Bilirubin, Total 0.6 0.2 - 1.3 mg/dL [facility] Est Glomerular Filtration Rate 17(L) >=60 mL/min/1. 73 m?? [facility] [...] MD CHEMISTRY ORDERABLE S Performing Organization Address [facility] Co de Phone Number [facility] [place] [place] [address] * Potassium (05/16/2023 11:15 PM EDT) Potassium 3.7 3.5 - 5.0 mmol/L [facility] [...] MD CHEMISTRY ORDERABLE S Performing Organization Address [facility] Co de Phone Number [facility] [place] [place] [address] * Magnesium (05/16/2023 5:22 PM EDT) Pathologist [facility] Magnesium 0.96 0.69 - 1.07 mmol/L [facility] Blood 05/16/2023 5:22 PM EDT 05/16/2023 5:27 PM EDT Narrative Resulting Agency Comment Spec In Lab Alirio Hudson MD CHEMISTRY ORDERABLE S Performing Organization Address [facility] Co de Phone Number [facility] [place] [place] [address] * (ABNORMAL) Basic Metabolic Panel (non-fasting) (05/16/2023 5:22 PM EDT) Glucose 106 65 - 199 mg/dL [facility] Comment:Diabetes: >=200 mg/d L plus symptoms Blood Urea Nitrogen 103(H) 8 - 18 mg/dL [facility] Creatinine 3.91(H) 0.70 - 1.20 mg/dL [facility] Comment:result rechecked-imm Sodium 132(L) 135 - 145 mmol/L [facility] Potassium 3.6 3.5 - 5.0 mmol/L [facility] Comment: Please note: ??Patients with WBC >100,000 may have falsely elevated Potassium levels. ??For accurate Potassium quantification in these patients send serum separator tube (gold top) for subsequent determinations. ??Contact the Clinical Chemistry Laboratory if there are any questions. Chloride 92(L) 98 - 107 mmol/L [facility] Carbon Dioxide 22 22 - 31 mmol/L [facility] Anion Gap 18(H) 5 - 15 mmol/L [facility] Calcium 9.7 8.5 - 10.5 mg/dL [facility] Est Glomerular Filtration Rate 12(L) >=60 mL/min/1. 73 m?? [facility] [...] Lab Alirio Hudson MD CHEMISTRY ORDERABLE S [facility] [place] [place] [address] * (ABNORMAL) Potassium (05/16/2023 11:43 AM EDT) Potassium 3.3(L) 3.5 - 5.0 mmol/L [facility] [...] Lab Alirio Hudson MD CHEMISTRY ORDERABLE S [facility] [place] [place] [address] * (ABNORMAL) Ferritin (05/16/2023 4:41 AM EDT) Pathologist [facility] Ferritin 1,813(H) 30 - 400 ng/mL [facility] Comment: Pediatric reference ranges not verified at [facility], interpret with caution. Reference ranges for females greater than 50 years of age approach values for men, i.e., 30-400 ng/mL. Blood 05/16/2023 4:41 AM EDT 05/16/2023 4:54 AM EDT Narrative Resulting Agency Comment Spec In Lab Kristopher Ayoub MD CHEMISTRY ORDERABLES [facility] [place] [place] [address] * (ABNORMAL) PTH (05/16/2023 4:41 AM EDT) [facility] Parathyroid Hormone 120(H) 15 - 65 pg/mL [facility] Blood 05/16/2023 4:41 AM EDT 05/16/2023 4:54 AM EDT Narrative Resulting Agency Comment Spec In Lab Kristopher Ayoub MD CHEMISTRY ORDERABLES [facility] [place] [place] [address] * Vitamin D, 25-Hydroxy (05/16/2023 4:41 AM EDT) [facility] Vitamin D Total 25 OH 33 21 - 100 ng/mL [facility] Vit D Interp Sufficient [facility] Blood 05/16/2023 4:41 AM EDT 05/16/2023 4:54 AM EDT Narrative Resulting Agency Comment Spec In Lab Kristopher Ayoub MD CHEMISTRY ORDERABLES [facility] [place] [place] [address] * (ABNORMAL) Blood Gas Venous ([facility]) (05/16/2023 4:22 AM EDT) pH, Venous 7.41 7.32 - 7.42 [facility] PCO2, Venous 32(L) 41 - 51 mmHg [facility] PO2, Venous 73(H) 25 - 40 mmHg [facility] Bicarbonate, Venous 19.6 mmol/L [facility] Base Excess, Venous -5.1 mmol/L [facility] Hgb Blood Gas 9.7(L) 11.7 - 15.5 g/dL [facility] Oxyhemoglobin, Venous 92.8 % [facility] Carboxyhemoglob in, Venous 0.1 % [facility] Comment: Nonsmokers: 0.5-1.5% COHB Smokers: Variable, but usually less than 10% Toxic: 20-30% COHB Lethal: Greater than 60% COHB Methemoglobin, Venous 0.3 <=1.5 % [facility] Na Whole Blood 130(L) 135 - 145 mmol/L [facility] K Whole Blood 3.7 3.5 - 5.0 mmol/L [facility] Comment: Please note: Patients with WBC >100,000 may have falsely elevated Potassium levels. Contact the Clinical Chemistry Laboratory if there are any questions. ICa Whole Blood 1.15 1.15 - 1.33 mmol/L [facility] Comment: Note: ??Total bilirubin higher than 20 mg/dL may lead to falsely low ionized calcium. CL Whole Blood 95(L) 98 - 107 mmol/L [facility] Gluc Whole Bld 82 65 - 199 mg/dL [facility] Comment:Diabetes: >=200 mg/d L plus symptoms Lactate WB 1.1 0.5 - 2.2 mmol/L [facility] Blood Gas Source Venous [facility] Blood Venous Draw / Unknown 05/16/2023 4:22 AM EDT 05/16/2023 4:31 AM EDT Narrative Resulting Agency Comment Spec In Lab Bonita TOBAR CHEMISTRY ORDERABLES [facility] [place] [place] [address] * (ABNORMAL) Differential, Automated (05/16/2023 4:20 AM EDT) Neutrophil % 84.1 % [facility] Neutrophil Absolute 6.22(H) 1.70 - 6.10 x10(3)/mc L [facility] Lymph % 5.8 % [facility] Lymphocytes Abs 0.4(L) 0.9 - 3.2 x10(3)/mc L [facility] Monocyte % 8.8 % [facility] Monocyte Abs 0.6 0.3 - 0.9 x10(3)/mc L [facility] Eos % 0.4 % [facility] Eosinophils Abs 0.0 0.0 - 0.4 x10(3)/mc L [facility] Basophil % 0.0 % [facility] Baso Absolute 0.0 0.0 - 0.1 x10(3)/mc L [facility] Immature Gran % 0.90 % [facility] Comment: Immature granulocytes(IG's)percentage and absolute count will include metamyelocytes, myelocytes, and promyelocytes. Blood smears from CBCs yielding IG's will be scanned manually for concordance. If this scan disagrees with the automated IG or if promyelocytes are noted, a manual differential will be performed. Immature Gran Absolute 0.07(H) 0.00 - 0.04 x10(3)/mc L [facility] Blood 05/16/2023 4:20 AM EDT 05/16/2023 4:29 AM EDT Narrative Resulting Agency Comment Spec In Lab James Agustin MD HEMATOLOGY ORDER JODIE Performing Organization Address City/[facility]/ZIP Co de Phone Number [facility] [place] [address] * (ABNORMAL) Hemogram (05/16/2023 4:20 AM EDT) White Blood Cell 7.4 4.0 - 9.5 x10(3)/mc L [facility] Red Blood Cell 2.40(L) 4.00 - 5.21 x10(6)/mc L [facility] Hemoglobin 7.8(L) 11.7 - 15.5 g/dL [facility] Hematocrit 22.5(L) 35.7 - 45.8 % [facility] Mean Cell Volume 93.8 82.6 - 94.4 fL [facility] Mean Cell Hemoglobin 32.5(H) 27.1 - 32.0 pg [facility] Mean Cell Hemoglobin Concentration 34.7 31.7 - 35.0 g/dL [facility] Platelet 120(L) 145 - 357 x10(3)/mc L [facility] RDW Standard Deviation 42.9 37.0 - 46.0 fL [facility] RDW coefficient of variation 12.9 11.5 - 14.1 % [facility] Mean Platelet Volume 11.3 7.6 - 12.9 fL [facility] NRBC% auto 0.7 % [facility] NRBC Absolute 0.050(H) 0.000 - 0.000 x10(3)/ L [facility] Blood 05/16/2023 4:20 AM EDT 05/16/2023 4:29 AM EDT Narrative Resulting Agency Comment Spec In Lab James Agustin MD HEMATOLOGY ORDER JODIE [facility] [place] [place] [address] * (ABNORMAL) Basic Metabolic Panel (non-fasting) (05/16/2023 4:20 AM EDT) Glucose 89 65 - 199 mg/dL [facility] Comment:Diabetes: >=200 mg/d L plus symptoms Blood Urea Nitrogen 108(H) 8 - 18 mg/dL [facility] Creatinine 4.74(H) 0.70 - 1.20 mg/dL [facility] Comment:result rechecked-OLIVA Sodium 132(L) 135 - 145 mmol/L [facility] Potassium 3.9 3.5 - 5.0 mmol/L [facility] Comment: Please note: ??Patients with WBC >100,000 may have falsely elevated Potassium levels. ??For accurate Potassium quantification in these patients send serum separator tube (gold top) for subsequent determinations. ??Contact the Clinical Chemistry Laboratory if there are any questions. Chloride 95(L) 98 - 107 mmol/L [facility] Carbon Dioxide 18(L) 22 - 31 mmol/L [facility] Anion Gap 19(H) 5 - 15 mmol/L [facility] Calcium 9.2 8.5 - 10.5 mg/dL [facility] Est Glomerular Filtration Rate 10(L) >=60 mL/min/1. 73 m?? [facility] [...] Lab Alirio Hudson MD CHEMISTRY ORDERABLE S [facility] [place] [place] [address] * (ABNORMAL) Iron and TIBC (05/16/2023 4:20 AM EDT) Iron 31 30 - 150 mcg/dL [facility] TIBC 259 250 - 450 mcg/dL [facility] Iron Saturation 12(L) 20 - 50 % [facility] Blood 05/16/2023 4:20 AM EDT 05/16/2023 4:29 AM EDT Narrative Resulting Agency Comment Spec In Lab Kristopher Ayoub MD CHEMISTRY ORDERABLES [facility] [place] [place] [address] * (ABNORMAL) Basic Metabolic Panel (non-fasting) (05/15/2023 12:50 AM EDT) Glucose 101 65 - 199 mg/dL [facility] Comment:Diabetes: >=200 mg/d L plus symptoms Blood Urea Nitrogen 109(H) 8 - 18 mg/dL [facility] Creatinine 5.62(H) 0.70 - 1.20 mg/dL [facility] Comment:result rechecked-[place] Sodium 131(L) 135 - 145 mmol/L [facility] Comment:result rechecked-[place] Potassium 3.7 3.5 - 5.0 mmol/L [facility] Comment: result rechecked-KS Please note: ??Patients with WBC >100,000 may have falsely elevated Potassium levels. ??For accurate Potassium quantification in these patients send serum separator tube (gold top) for subsequent determinations. ??Contact the Clinical Chemistry Laboratory if there are any questions. Chloride 92(L) 98 - 107 mmol/L [facility] Comment:result rechecked-[place] Carbon Dioxide 18(L) 22 - 31 mmol/L [facility] Comment:result rechecked-[place] Anion Gap 21(H) 5 - 15 mmol/L [facility] Calcium 8.9 8.5 - 10.5 mg/dL [facility] Est Glomerular Filtration Rate 8(L) >=60 mL/min/1. 73 m?? [facility] [...] CHEMISTRY ORDERABLE S Performing Organization Address City/[facility]/ZIP Co de Phone Number [facility] [place] [address] * (ABNORMAL) Hemogram (05/15/2023 12:50 AM EDT) White Blood Cell 9.1 4.0 - 9.5 x10(3)/mc L [facility] Red Blood Cell 2.19(L) 4.00 - 5.21 x10(6)/mc L [facility] Hemoglobin 7.2(L) 11.7 - 15.5 g/dL [facility] Hematocrit 20.6(L) 35.7 - 45.8 % [facility] Mean Cell Volume 94.1 82.6 - 94.4 fL [facility] Mean Cell Hemoglobin 32.9(H) 27.1 - 32.0 pg [facility] Mean Cell Hemoglobin Concentration 35.0 31.7 - 35.0 g/dL [facility] Platelet 109(L) 145 - 357 x10(3)/mc L [facility] RDW Standard Deviation 43.6 37.0 - 46.0 fL [facility] RDW coefficient of variation 12.9 11.5 - 14.1 % [facility] Mean Platelet Volume 10.4 7.6 - 12.9 fL [facility] NRBC% auto 2.1 % [facility] NRBC Absolute 0.190(H) 0.000 - 0.000 x10(3)/mc L [facility] Blood 05/15/2023 12:5 0 AM EDT 05/15/2023 12:52 AM EDT Narrative Resulting Agency Comment Spec In Lab Alirio Hudson MD HEMATOLOGY ORDERABL ES Performing Organization Address [facility] Co de Phone Number [facility] [place] [address] * (ABNORMAL) BLOOD GAS 2 VENOUS (05/15/2023 12:49 AM EDT) pH, Venous 7.33 7.32 - 7.42 [facility] PCO2, Venous 37(L) 41 - 51 mmHg [facility] PO2, Venous 34 25 - 40 mmHg [facility] Bicarbonate, Venous 19.1 mmol/L [facility] Base Excess, Venous -6.8 mmol/L [facility] Hgb Blood Gas 10.8(L) 11.7 - 15.5 g/dL [facility] Oxyhemoglobin, Venous 58.1 % [facility] Carboxyhemoglob in, Venous 0.3 % [facility] Comment: Nonsmokers: 0.5-1.5% COHB Smokers: Variable, but usually less than 10% Toxic: 20-30% COHB Lethal: Greater than 60% COHB Methemoglobin, Venous 0.6 <=1.5 % [facility] Na Whole Blood 136 135 - 145 mmol/L [facility] K Whole Blood 3.7 3.5 - 5.0 mmol/L [facility] Comment: Please note: Patients with WBC >100,000 may have falsely elevated Potassium levels. Contact the Clinical Chemistry Laboratory if there are any questions. ICa Whole Blood 1.12(L) 1.15 - 1.33 mmol/L [facility] Comment: Note: ??Total bilirubin higher than 20 mg/dL may lead to falsely low ionized calcium. CL Whole Blood 95(L) 98 - 107 mmol/L [facility] Gluc Whole Bld 101 65 - 199 mg/dL [facility] Comment:Diabetes: >=200 mg/d L plus symptoms Lactate WB 1.3 0.5 - 2.2 mmol/L [facility] Flow, Mike 1.0 LPM [facility] Blood Gas Source Venous [facility] Blood 05/15/2023 12:4 9 AM EDT 05/15/2023 12:49 AM EDT Alirio Hudson MD POINT OF CARE TEST ORDERABLES [facility] [address] [place], [place] [id number] * US Retroperitoneal Complete (05/14/2023 3:53 PM [...] PM Electronically signed by: Hayden Robledo MD, [facility] ([phone]), at 05/14/2023 4:32 PM Thank you for letting us participate in the care of this patient. If you are a health care provider and have any questions regarding this report, please contact the number above. For patients who have questions, please contact the health respite care provider that requested your imaging first. ? Hayden Robledo, Staff Physician Electronically Signed Final Report ?? 05/14/2023 04:39 pm Narrative 05/14/2023 4:39 PM EDT Renal ? (Signed Final 05/14/2023 04:39 pm) PATIENT INFO: ID #: ? [id number] ?: ??55 (67 yrs)(F) Name: ? PURNIMA Magalie KIRSTIE ?Visit Date: 05/14/2023 03:44 pm PERFORMED BY: Attending: ?Meena CULP, Hayden Stafford Resident: ? Barnacle MD, Anand D. Performed By: ? [place] RDMS, Consuelo Referred By: ?ALIRIO HUDSON Location: ? [place] SERVICE(S) PROVIDED: URETRO - Retroperitoneal Complete - [id number] ? [id number] INDICATIONS: EVANS COMPARISON: CT: Abdomen/Pelvis 05/11/23 RIGHT [...] 05/14/2023 04:39 pm) PATIENT INFO: ID #: [id number] : 55 (67 yrs)(F) Name: PURNIMA THACKER Visit Date: 05/14/2023 03:44 pm PERFORMED BY: Attending: Hayden Robledo MD Resident: Anand Camejo MD Performed By: Consuelo Tello RDMS Referred By: ALIRIO HUDSON Location: [place] SERVICE(S) PROVIDED: URETRO - Retroperitoneal Complete - [id number] INDICATIONS: EVANS COMPARISON: CT: Abdomen/Pelvis 05/11/23 RIGHT [...] PM Electronically signed by: Hayden Robledo MD, [facility] ([phone]), at 05/14/2023 4:32 PM Thank you for letting us participate in the care of this patient. If you are a health care provider and have any questions regarding this report, please contact the number above. For patients who have questions, please contact the health respite care provider that requested your imaging first. Hayden Robledo, Staff Physician Electronically Signed Final Report 05/14/2023 04:39 pm Alirio Hudson MD IMG US GEN ORDERABL ES * CK (05/14/2023 3:17 PM EDT) Creatine Kinase 123 0 - 160 unit/L [facility] Blood 05/14/2023 3:17 PM EDT 05/14/2023 3:31 PM EDT Narrative Resulting Agency Comment Spec In Lab Alirio Hudson MD CHEMISTRY ORDERABLE S Performing Organization Address [facility] Co de Phone Number [facility] [place] [address] * (ABNORMAL) Uric acid (05/14/2023 3:17 PM EDT) Uric Acid 14.9(H) 2.5 - 6.5 mg/dL [facility] Blood 05/14/2023 3:17 PM EDT 05/14/2023 3:31 PM EDT Narrative Resulting Agency Comment Spec In Lab Alirio Hudson MD CHEMISTRY ORDERABLE S Performing Organization Address [facility] Co de Phone Number [facility] [place] [address] * (ABNORMAL) Osmolality (05/14/2023 3:17 PM EDT) Osmolality 311(H) 275 - 295 mOsm/kg [facility] Blood 05/14/2023 3:17 PM EDT 05/14/2023 3:31 PM EDT Narrative Resulting Agency Comment Spec In Lab Alirio Hudson MD CHEMISTRY ORDERABLE S [facility] [place] [address] * (ABNORMAL) Differential, Automated (05/14/2023 1:10 AM EDT) Neutrophil % 87.2 % [facility] Neutrophil Absolute 9.74(H) 1.70 - 6.10 x10(3)/mc L [facility] Lymph % 3.9 % [facility] Lymphocytes Abs 0.4(L) 0.9 - 3.2 x10(3)/mc L [facility] Monocyte % 7.9 % [facility] Monocyte Abs 0.9 0.3 - 0.9 x10(3)/mc L [facility] Eos % 0.0 % [facility] Eosinophils Abs 0.0 0.0 - 0.4 x10(3)/mc L [facility] Basophil % 0.1 % [facility] Baso Absolute 0.0 0.0 - 0.1 x10(3)/mc L [facility] Immature Gran % 0.90 % [facility] Comment: Immature granulocytes(IG's)percentage and absolute count will include metamyelocytes, myelocytes, and promyelocytes. Blood smears from CBCs yielding IG's will be scanned manually for concordance. If this scan disagrees with the automated IG or if promyelocytes are noted, a manual differential will be performed. Immature Gran Absolute 0.10(H) 0.00 - 0.04 x10(3)/mc L [facility] Blood 05/14/2023 1:10 AM EDT 05/14/2023 1:24 AM EDT Narrative Resulting Agency Comment Spec In Lab Bonita TOBAR HEMATOLOGY ORDERABLE S [facility] [place] [address] * (ABNORMAL) Hemogram (05/14/2023 1:10 AM EDT) White Blood Cell 11.2(H) 4.0 - 9.5 x10(3)/mc L [facility] Red Blood Cell 2.19(L) 4.00 - 5.21 x10(6)/mc L [facility] Hemoglobin 7.2(L) 11.7 - 15.5 g/dL [facility] Hematocrit 20.3(L) 35.7 - 45.8 % [facility] Mean Cell Volume 92.7 82.6 - 94.4 fL [facility] Mean Cell Hemoglobin 32.9(H) 27.1 - 32.0 pg [facility] Mean Cell Hemoglobin Concentration 35.5(H) 31.7 - 35.0 g/dL [facility] Platelet 112(L) 145 - 357 x10(3)/mc L [facility] RDW Standard Deviation 41.4 37.0 - 46.0 fL [facility] RDW coefficient of variation 12.5 11.5 - 14.1 % [facility] Mean Platelet Volume 10.4 7.6 - 12.9 fL [facility] NRBC% auto 1.5 % [facility] NRBC Absolute 0.170(H) 0.000 - 0.000 x10(3)/mc L [facility] Blood 05/14/2023 1:10 AM EDT 05/14/2023 1:24 AM EDT Narrative Resulting Agency Comment Spec In Lab Bonita TOBAR HEMATOLOGY ORDERABLE S [facility] [place] [place] [address] * (ABNORMAL) Comprehensive metabolic panel (non-fasting) (05/14/2023 1:10 AM EDT) Glucose 120 65 - 199 mg/dL [facility] Comment:Diabetes: >=200 mg/d L plus symptoms Blood Urea Nitrogen 98(H) 8 - 18 mg/dL [facility] Creatinine 4.80(H) 0.70 - 1.20 mg/dL [facility] Comment:result rechecked-ssc Sodium 132(L) 135 - 145 mmol/L [facility] Potassium 4.1 3.5 - 5.0 mmol/L [facility] Comment: Please note: ??Patients with WBC >100,000 may have falsely elevated Potassium levels. ??For accurate Potassium quantification in these patients send serum separator tube (gold top) for subsequent determinations. ??Contact the Clinical Chemistry Laboratory if there are any questions. Chloride 94(L) 98 - 107 mmol/L [facility] Carbon Dioxide 18(L) 22 - 31 mmol/L [facility] Anion Gap 20(H) 5 - 15 mmol/L [facility] Calcium 8.5 8.5 - 10.5 mg/dL [facility] Protein, Total 5.8(L) 6.1 - 8.0 g/dL [facility] Albumin 3.6 3.2 - 5.2 g/dL [facility] Aspartate Aminotransferase 319(H) 0 - 30 unit/L [facility] Alanine Aminotransferase 437(H) 0 - 30 unit/L [facility] Alkaline Phosphatase 86 35 - 105 unit/L [facility] Bilirubin, Total 0.4 0.2 - 1.3 mg/dL [facility] Est Glomerular Filtration Rate 9(L) >=60 mL/min/1. 73 m?? [facility] [...] Resulting Agency Comment Spec In Lab Alirio Hduson MD CHEMISTRY ORDERABLE S Performing Organization Address [facility] Co de Phone Number [facility] [place] [address] * APTT (05/13/2023 10:15 AM EDT) Partial Thromboplastin Time 27 25 - 37 sec [facility] Comment: The PTT is NOT appropriate for heparin monitoring. Use the Anti-Xa level for heparin monitoring (HEP UFH) or LMWH monitoring (HEP LMW). A PTT less than 37 seconds generally indicates adequate hemostasis. Blood 05/13/2023 10:1 5 AM EDT 05/13/2023 10:46 AM EDT Narrative Resulting Agency Comment Spec In Lab Alirio Hudson MD HEMATOLOGY ORDERABL ES Performing Organization Address [facility] Co de Phone Number [facility] [place] [address] * (ABNORMAL) Prothrombin Time (05/13/2023 10:15 AM EDT) Prothrombin Time 14.6(H) 9.4 - 12.5 sec [facility] International Normalization Ratio 1.3 [facility] Comment: An INR <2.0 indicates adequate [...] MD HEMATOLOGY ORDERABL ES Performing Organization Address [facility] Co de Phone Number [facility] [place] [address] * EKG 12 Lead (05/13/2023 9:22 AM EDT) Ventricular rate 92 BPM MUSE SYSTEM Atrial Rate 92 BPM MUSE SYSTEM P-R Interval 140 ms MUSE SYSTEM QRS Duration 104 ms MUSE SYSTEM Q-T Interval 384 ms MUSE SYSTEM QTC Calculated (Bezet) 474 ms MUSE SYSTEM Calculated P [place] 33 degrees MUSE SYSTEM Calculated R [place] 41 degrees MUSE SYSTEM Calculated T [place] -35 degrees MUSE SYSTEM INTERPRETATION Sinus rhythm with frequent Premature ventricular complexes Septal infarct , age undetermined ST & T wave abnormality, consider lateral ischemia Abnormal ECG When compared with ECG of 12-MAY-2023 10:10, Premature ventricular complexes are now Present I personally reviewed the tracing and edited the fellows interpretation Confirmed by fellow MD Anitha, Carissa ([id number]) on 05/13/2023 3:25:30 PM Confirmed by Maxx Best ([id number]) on 05/13/2023 8:30:56 PM MUSE SYSTEM 05/13/2023 9:22 AM EDT 05/13/2023 8:30 PM EDT Alirio Hudson MD ECG ORDERABLES MUSE SYSTEM * (ABNORMAL) Differential, Automated (05/13/2023 1:15 AM EDT) Neutrophil % 88.1 % [facility] Neutrophil Absolute 7.62(H) 1.70 - 6.10 x10(3)/mc L [facility] Lymph % 3.1 % [facility] Lymphocytes Abs 0.3(L) 0.9 - 3.2 x10(3)/mc L [facility] Monocyte % 7.9 % [facility] Monocyte Abs 0.7 0.3 - 0.9 x10(3)/mc L [facility] Eos % 0.0 % [facility] Eosinophils Abs 0.0 0.0 - 0.4 x10(3)/mc L [facility] Basophil % 0.1 % [facility] Baso Absolute 0.0 0.0 - 0.1 x10(3)/mc L [facility] Immature Gran % 0.80 % [facility] Comment: Immature granulocytes(IG's)percentage and absolute count will include metamyelocytes, myelocytes, and promyelocytes. Blood smears from CBCs yielding IG's will be scanned manually for concordance. If this scan disagrees with the automated IG or if promyelocytes are noted, a manual differential will be performed. Immature Gran Absolute 0.07(H) 0.00 - 0.04 x10(3)/mc L [facility] Blood 05/13/2023 1:15 AM EDT 05/13/2023 1:29 AM EDT Narrative Resulting Agency Comment Spec In Lab Lorri TOBAR HEMATOLOGY ORDERABLE S [facility] [place] [place] [address] * (ABNORMAL) Hemogram (05/13/2023 1:15 AM EDT) White Blood Cell 8.6 4.0 - 9.5 x10(3)/mc L [facility] Red Blood Cell 2.37(L) 4.00 - 5.21 x10(6)/mc L [facility] Hemoglobin 7.8(L) 11.7 - 15.5 g/dL [facility] Hematocrit 22.2(L) 35.7 - 45.8 % [facility] Mean Cell Volume 93.7 82.6 - 94.4 fL [facility] Mean Cell Hemoglobin 32.9(H) 27.1 - 32.0 pg [facility] Mean Cell Hemoglobin Concentration 35.1(H) 31.7 - 35.0 g/dL [facility] Platelet 130(L) 145 - 357 x10(3)/mc L [facility] RDW Standard Deviation 41.7 37.0 - 46.0 fL [facility] RDW coefficient of variation 12.5 11.5 - 14.1 % [facility] Mean Platelet Volume 10.2 7.6 - 12.9 fL [facility] NRBC% auto 0.5 % [facility] NRBC Absolute 0.040(H) 0.000 - 0.000 x10(3)/mc L [facility] Blood 05/13/2023 1:15 AM EDT 05/13/2023 1:29 AM EDT Narrative Resulting Agency Comment Spec In Lab Lorri TOBAR HEMATOLOGY ORDERABLE S Performing Organization Address City/[facility]/ZIP Co de Phone Number [facility] [place] [address] * (ABNORMAL) Hepatic Function Panel (05/13/2023 1:15 AM EDT) Protein, Total 5.5(L) 6.1 - 8.0 g/dL [facility] Albumin 3.0(L) 3.2 - 5.2 g/dL [facility] Aspartate Aminotransferase 792(H) 0 - 30 unit/L [facility] Alanine Aminotransferase 903(H) 0 - 30 unit/L [facility] Alkaline Phosphatase 85 35 - 105 unit/L [facility] Bilirubin, Total 0.5 0.2 - 1.3 mg/dL [facility] Bilirubin, Direct 0.3 0.0 - 0.3 mg/dL [facility] Blood 05/13/2023 1:15 AM EDT 05/13/2023 1:29 AM EDT Narrative Resulting Agency Comment Spec In Lab Alirio Hudson MD CHEMISTRY ORDERABLE S Performing Organization Address [facility] Co de Phone Number [facility] [place] [address] * (ABNORMAL) Basic Metabolic Panel (non-fasting) (05/13/2023 1:15 AM EDT) Pathologist [facility] Glucose 107 65 - 199 mg/dL [facility] Comment:Diabetes: >=200 mg/d L plus symptoms Blood Urea Nitrogen 82(H) 8 - 18 mg/dL [facility] Creatinine 3.15(H) 0.70 - 1.20 mg/dL [facility] Comment:result rechecked-OG Sodium 132(L) 135 - 145 mmol/L [facility] Potassium 3.8 3.5 - 5.0 mmol/L [facility] Comment: Please note: ??Patients with WBC >100,000 may have falsely elevated Potassium levels. ??For accurate Potassium quantification in these patients send serum separator tube (gold top) for subsequent determinations. ??Contact the Clinical Chemistry Laboratory if there are any questions. Chloride 95(L) 98 - 107 mmol/L [facility] Carbon Dioxide 20(L) 22 - 31 mmol/L [facility] Anion Gap 17(H) 5 - 15 mmol/L [facility] Calcium 8.3(L) 8.5 - 10.5 mg/dL [facility] Est Glomerular Filtration Rate 16(L) >=60 mL/min/1. 73 m?? [facility] Co de Phone Number [facility] [place] [address] * (ABNORMAL) BLOOD GAS 2 ARTERIAL (05/12/2023 3:57 PM EDT) pH, Arterial 7.39 7.35 - 7.45 [facility] PCO2, Arterial 33(L) 35 - 45 mmHg [facility] PO2, Arterial 101 85 - 104 mmHg [facility] Bicarbonate, Arterial 19.5(L) 20.0 - 26.0 mmol/L [facility] Base Excess, Arterial -5.5(L) -3.0 - 3.0 mmol/L [facility] Hgb Blood Gas 9.8(L) 11.7 - 15.5 g/dL [facility] Oxyhemoglobin, Arterial 95.2 94.0 - 97.0 % [facility] Carboxyhemoglob in, Arterial 0.2 % [facility] Comment: Nonsmokers: 0.5-1.5% COHB Smokers: Variable, but usually less than 10% Toxic: 20-30% COHB Lethal: Greater than 60% COHB Methemoglobin, Arterial 0.8 <=1.5 % [facility] Na Whole Blood 129(L) 135 - 145 mmol/L [facility] K Whole Blood 3.8 3.5 - 5.0 mmol/L [facility] Comment: Please note: Patients with WBC >100,000 may have falsely elevated Potassium levels. Contact the Clinical Chemistry Laboratory if there are any questions. ICa Whole Blood 1.05(L) 1.15 - 1.33 mmol/L [facility] Comment: Note: ??Total bilirubin higher than 20 mg/dL may lead to falsely low ionized calcium. CL Whole Blood 96(L) 98 - 107 mmol/L [facility] Gluc Whole Bld 178 65 - 199 mg/dL [facility] Comment:Diabetes: >=200 mg/d L plus symptoms. Lactate WB 1.5 0.5 - 2.2 mmol/L [facility] FIO2 Art 40 % [facility] PF Ratio Art 252 [facility] Blood 05/12/2023 3:57 PM EDT 05/12/2023 3:57 PM EDT Alirio Hudson MD POINT OF CARE TEST ORDERABLES [facility] [place] [address] * (ABNORMAL) Coox2 (05/12/2023 2:25 PM EDT) pO2, Coox 37 mmHg [facility] Hgb Blood Gas 9.5(L) 11.7 - 15.5 g/dL [facility] Oxyhemoglobin, Coox 59.9 % [facility] Carboxyhemoglo bin, Coox 0.3 % [facility] Comment: Nonsmokers: 0.5-1.5% COHB Smokers: Variable, but usually less than 10% Toxic: 20-30% COHB Lethal: Greater than 60% COHB Methemoglobin, Coox 0.7 <=1.5 % [facility] Source Coox Mixed Venous [facility] Blood 05/12/2023 2:25 PM EDT 05/12/2023 2:25 PM EDT Alirio Hudson MD POINT OF CARE TEST ORDERABLES [facility] [place] [address] * (ABNORMAL) BLOOD GAS 2 ARTERIAL (05/12/2023 2:23 PM EDT) pH, Arterial 7.37 7.35 - 7.45 [facility] PCO2, Arterial 36 35 - 45 mmHg [facility] PO2, Arterial 102 85 - 104 mmHg [facility] Bicarbonate, Arterial 20.4 20.0 - 26.0 mmol/L [facility] Base Excess, Arterial -4.8(L) -3.0 - 3.0 mmol/L [facility] Hgb Blood Gas 12.7 11.7 - 15.5 g/dL [facility] Oxyhemoglobin, Arterial 95.4 94.0 - 97.0 % [facility] Carboxyhemoglob in, Arterial 0.3 % [facility] Comment: Nonsmokers: 0.5-1.5% COHB Smokers: Variable, but usually less than 10% Toxic: 20-30% COHB Lethal: Greater than 60% COHB Methemoglobin, Arterial 0.7 <=1.5 % [facility] Na Whole Blood 129(L) 135 - 145 mmol/L [facility] K Whole Blood 3.7 3.5 - 5.0 mmol/L [facility] Comment: Please note: Patients with WBC >100,000 may have falsely elevated Potassium levels. Contact the Clinical Chemistry Laboratory if there are any questions. ICa Whole Blood 1.05(L) 1.15 - 1.33 mmol/L [facility] Comment: Note: ??Total bilirubin higher than 20 mg/dL may lead to falsely low ionized calcium. CL Whole Blood 95(L) 98 - 107 mmol/L [facility] Gluc Whole Bld 168 65 - 199 mg/dL [facility] Comment:Diabetes: >=200 mg/d L plus symptoms. Lactate WB 1.8 0.5 - 2.2 mmol/L [facility] FIO2 Art 40 % [facility] PF Ratio Art 255 [facility] Blood 05/12/2023 2:23 PM EDT 05/12/2023 2:23 PM EDT Alirio Hudson MD POINT OF CARE TEST ORDERABLES Performing Organization Address City/[facility]/[place] [address] * (ABNORMAL) Troponin (05/12/2023 2:05 PM EDT) Troponin-T, High Sensitivity 1,022(H) <=14 ng/L [facility] Comment: This patient's troponin T concentration [...] value can be found in the [facility] Laboratory Test Catalog Troponin - [facility] Laboratory Test Catalog Reference: Fourth Harbert Definition of Myocardial Infarction. Journal of the [place] [employer] 2018;72:0520-5657 Blood 05/12/2023 2:05 PM EDT 05/12/2023 2:14 PM EDT Narrative Resulting Agency Comment Spec In Lab Alirio Hudson MD CHEMISTRY ORDERABLE S Performing Organization Address City/[facility]/ZIP Co de Phone Number [facility] [place] [address] * (ABNORMAL) Hemoglobin (05/12/2023 2:05 PM EDT) Pathologist [facility] Hemoglobin 8.5(L) 11.7 - 15.5 g/dL [facility] Blood 05/12/2023 2:05 PM EDT 05/12/2023 2:14 PM EDT Narrative Resulting Agency Comment Spec In Lab Alirio Hudson MD HEMATOLOGY ORDERABL ES Performing Organization Address [facility] Co de Phone Number [facility] [place] [address] * Potassium (05/12/2023 2:05 PM EDT) [facility] Potassium 3.9 3.5 - 5.0 mmol/L [facility] [...] MD CHEMISTRY ORDERABLE S Performing Organization Address [facility] Co de Phone Number [facility] [place] [address] * (ABNORMAL) BLOOD GAS 2 ARTERIAL (05/12/2023 11:05 AM EDT) pH, Arterial 7.34(L) 7.35 - 7.45 [facility] PCO2, Arterial 42 35 - 45 mmHg [facility] PO2, Arterial 73(L) 85 - 104 mmHg [facility] Bicarbonate, Arterial 22.1 20.0 - 26.0 mmol/L [facility] Base Excess, Arterial -3.6(L) -3.0 - 3.0 mmol/L [facility] Hgb Blood Gas 9.3(L) 11.7 - 15.5 g/dL [facility] Oxyhemoglobin, Arterial 89.3(L) 94.0 - 97.0 % [facility] Carboxyhemoglob in, Arterial 0.2 % [facility] Comment: Nonsmokers: 0.5-1.5% COHB Smokers: Variable, but usually less than 10% Toxic: 20-30% COHB Lethal: Greater than 60% COHB Methemoglobin, Arterial 0.9 <=1.5 % [facility] Na Whole Blood 131(L) 135 - 145 mmol/L [facility] K Whole Blood 3.8 3.5 - 5.0 mmol/L [facility] Comment: Please note: Patients with WBC >100,000 may have falsely elevated Potassium levels. Contact the Clinical Chemistry Laboratory if there are any questions. ICa Whole Blood 1.04(L) 1.15 - 1.33 mmol/L [facility] Comment: Note: ??Total bilirubin higher than 20 mg/dL may lead to falsely low ionized calcium. CL Whole Blood 96(L) 98 - 107 mmol/L [facility] Gluc Whole Bld 152 65 - 199 mg/dL [facility] Comment:Diabetes: >=200 mg/d L plus symptoms. Lactate WB 2.8(H) 0.5 - 2.2 mmol/L [facility] FIO2 Art 40 % [facility] PF Ratio Art 182 [facility] Blood 05/12/2023 11:0 5 AM EDT 05/12/2023 11:05 AM EDT Alirio Hudson MD POINT OF CARE TEST ORDERABLES Performing Organization Address City/State/[facility] Co de Phone Number [facility] [place] [address] * (ABNORMAL) BLOOD GAS 2 ARTERIAL (05/12/2023 10:14 AM EDT) pH, Arterial 7.18(Criti gabrielle) 7.35 - 7.45 [facility] Comment:Noted by supervisor instrument repair. PCO2, Arterial 45 35 - 45 mmHg [facility] PO2, Arterial 186(H) 85 - 104 mmHg [facility] Bicarbonate, Arterial 16.2(L) 20.0 - 26.0 mmol/L [facility] Base Excess, Arterial -12.2(L) -3.0 - 3.0 mmol/L [facility] Hgb Blood Gas 10.0(L) 11.7 - 15.5 g/dL [facility] Oxyhemoglobin, Arterial 97.0 94.0 - 97.0 % [facility] Carboxyhemoglob in, Arterial 0.2 % [facility] Comment: Nonsmokers: 0.5-1.5% COHB Smokers: Variable, but usually less than 10% Toxic: 20-30% COHB Lethal: Greater than 60% COHB Methemoglobin, Arterial 0.9 <=1.5 % [facility] Na Whole Blood 129(L) 135 - 145 mmol/L [facility] K Whole Blood 3.6 3.5 - 5.0 mmol/L [facility] Comment: Please note: Patients with WBC >100,000 may have falsely elevated Potassium levels. Contact the Clinical Chemistry Laboratory if there are any questions. ICa Whole Blood 1.10(L) 1.15 - 1.33 mmol/L [facility] Comment: Note: ??Total bilirubin higher than 20 mg/dL may lead to falsely low ionized calcium. CL Whole Blood 97(L) 98 - 107 mmol/L [facility] Gluc Whole Bld 161 65 - 199 mg/dL [facility] Comment:Diabetes: >=200 mg/d L plus symptoms. Lactate WB 3.3(H) 0.5 - 2.2 mmol/L [facility] FIO2 Art 100 % [facility] PF Ratio Art 186 [facility] Blood 05/12/2023 10:1 4 AM EDT 05/12/2023 10:14 AM EDT Alirio Hudson MD POINT OF CARE TEST ORDERABLES [facility] [place] [address] * EKG 12 Lead (05/12/2023 10:10 AM EDT) Ventricular rate 116 BPM MUSE SYSTEM Atrial Rate 116 BPM MUSE SYSTEM P-R Interval 158 ms MUSE SYSTEM QRS Duration 114 ms MUSE SYSTEM Q-T Interval 348 ms MUSE SYSTEM QTC Calculated (Bezet) 483 ms MUSE SYSTEM Calculated P [place] 37 degrees MUSE SYSTEM Calculated R [place] 31 degrees MUSE SYSTEM Calculated T [place] -138 degrees MUSE SYSTEM INTERPRETATION Sinus tachycardia with intermittent aberrant ventricular conduction Possible Left atrial enlargement Incomplete left bundle block Left ventricular hypertrophy with repolarization abnormality ( Sokolow-Orozco , [place] product ) ST & T wave abnormality in Inferolateral leads Abnormal ECG When compared with ECG of 10-MAY-2023 13:16, ST & T wave abnormality is more pronounced in inferolateral leads I personally reviewed the tracing and edited the fellows interpretation Confirmed by fellow MD Anuja, Jim ([id number]) on 05/12/2023 1:04:20 PM Confirmed by MD Mono, Eleni ([id number]) on 05/12/2023 9:28:34 PM MUSE SYSTEM 05/12/2023 [...] ? Electronically signed by: Chyna Johnson MD, [facility] ??([phone]), at 05/12/2023 10:08 AM Narrative 05/12/2023 10:08 AM EDT EXAMINATION: XR CHEST ONE VIEW CLINICAL HISTORY: Post TAVR TECHNIQUE: 1 view of the chest COMPARISON: Chest radiograph from earlier today FINDINGS: Interval placement of endotracheal tube with tip terminating 2 cm above the shira. Interval placement of enteric tube projecting along the expected course of the esophagus and outside the mqokw-iy-zsih. Interval retraction of right IJ approach pulmonary [...] tube with tip terminating 2 cm abovethe hsira. Interval placement of enteric tube projecting along the expected course ofthe esophagus and outside the mqexk-kr-jdwq. Interval retraction of right IJ approach pulmonary [...] first. Electronically signed by: Chyna Johnson MD, [facility]([phone]), at 05/12/2023 10:08 AM Alirio Hudson MD IMG DX ORDERABLES * ECHO LMTD W/O CONTRAST W LMTD SPEC DOPP COLOR DOPP (05/12/2023 9:23 AM EDT) EF 20 [employer] SYSTEM Anatomical Region Laterality Modality Cardiac Other 05/12/2023 7:33 AM EDT Narrative 05/12/2023 10:18 AM EDT ? Echocardiogram Report Name: PURNIMA THACKER ?Study Date: 05/12/2023 07:33 AMBP: 96/63 mmHg ? Patient Location: [place] CA06 A : 1955 ? Height: 154 cm ? Account: [id number] Age: 67 yrs ? Weight: 75 kg Gender: Female ?BSA: 1.7 m2 Ordering Physician: RADHA HOLLINS Referring Physician: RADHA HOLLINS Performed By: Dilma Bee RDCS Reason For Study: Guidance for TAVR procedure Exam Location: [facility]. Interpretation Summary PRE TAVR: There [...] mL/m2. POST TAVR: Normal function of the fotcn-rv-hpvcj prosthesis. See below for hemodynamic parameters. Slight improvement in left and right ventricular systolic function. LVEF now 20-25%. No pericardial effusion. See report for additional findings. Procedure Limited - 65115. Doppler - 29261. Color Doppler - 50946. Left Ventricle Left ventricle is of normal [...] 307:33 AMBP: 96/63 mmHg Patient Location: [address] : 1955 Height: 154 cm Account: [id number] Age: 67 yrs Weight: 75 kg Gender: Female BSA: 1.7 m2 Ordering Physician: RADHA HOLLINS Referring Physician: RADHA HOLLINS Performed By: Dilma Bee RDCS Reason For Study: Guidance for TAVR procedure Exam Location: [facility]. Interpretation Summary PRE TAVR: There [...] 28mL/m2. POST TAVR: Normal function of the lidgv-dc-dssjw prosthesis. See belowfor hemodynamic parameters. Slight improvement in left and right ventricularsystolic function. LVEF now 20-25%. No pericardial effusion. See report for additional findings. Procedure Limited - 76690. Doppler - 11854. Color Doppler - 08767. Left Ventricle Left ventricle is of normal [...] Other Narrative 05/12/2023 2:37 PM EDT ?[facility] ? Cardiac Catheterization/Intervention Report ? Patient Name: Purnima Thacker. ? Procedure Date: 05/12/2023 ? A #: [id number] ? Primary Physician: Antelmo Sharma ? Case #: [id number] ? File Name: [id number] ? Catheterization Order Number: [id number] ? [facility] ? Final Report [place], [place] ? Patient Name: ? Purnima M. Kirstie ? ID#: ?[id number] ? : ?1955 ? Procedure Date: ? May 12, 2023 ? Case #: ? [id number] ? Room: ? 6 ? Case [...] Device Deployment ?* Temporary Pacemaker Insertion In Crust Sorter ?* Endotracheal Intubation By Non-Cath Physician [...] ??A premounted 4.00 x 30 mm Nils Paullina (MINNA) was ? deployed with a maximum [...] calculated STS risk score was 30.1%. A cxtxb-bw-zovxv ?procedure was performed on the pre-existing bioprosthetic stented ?prosthesis. The priority of the escsi-rf-ndkip procedure was Elective. ?The procedure was performed [...] Lai 3 Ultra RESILIA 23 mm THV ([id number]/[id number]) transcatheter ?valve was inserted using standard technique. [...] nor was it given in the ?chemical lab supervisor. ?Recommended anti-platelet/anti-thrombotic regimen: ?Continue aspirin 81 mg daily for indefinitely. ?These recommendations are made at the time of the intervention. Patient ?and provider preferences or a changing clinical situation may require ?modification of this regimen. Consult [facility] Interventional Cardiology for ?questions. ? Conclusions: ?* [...] regimen. ? Comments: ?Successful right transfemoral TAVR Pcxpo-bd-Hqrws with a 23 mm Lai 3 ?THV. [...] access site angiography, ?temporary pacemaker in chemical lab supervisor, intubation-non cath physician, vascular ?closure device, transthoracic echo ??and TAVR. Dr. Alirio Hudson M.D. ?performed the left heart catheterization, access site angiography, ?temporary pacemaker in chemical lab supervisor, vascular closure device, transthoracic ?echo , TAVR and CPR during cath. Dr. Lynda Mcgowan M.D. performed the ABG, ?anesthesia and intubation-non cath physician. ? Antelmo Sharma M.D. ? Electronically Signed by: Antelmo Sharma M.D. ? Report Finalized: 05/12/2023 ??14:31 ? Report Last Ammended: 07/01/2023 ??11:30 ? Procedure Note Antelmo Sharma MD - 07/01/2023 [facility] Cardiac Catheterization/Intervention Report Patient Name: Purnima ThackerKaylie Procedure Date: 05/12/2023 A #: [id number] Primary Physician: Antelmo Sharma Case #: [id number] File Name: [id number] Catheterization Order Number: [id number] [facility] FinalReport [place], [place] Patient Name: Purnima Thacker ID#:[id number] :1955 Procedure Date: May 12, 2023 Case #: [id number] Room: 6 Case Physicians: Antelmo Sharma M.D. Start: 08:03 Alirio Hudson M.D. Admission:05/08/2023 Lynda Mcgowan M.D. Discharge:05/22/2023 Fellow: Rebekah Tejeda M.D. Referring Physician: Mario Alberto Chin M.D. Procedures: * Coronary Angiography * Left Heart Catheterization * Coronary Stent Insertion * Transcatheter Aortic Valve Replacement * Vascular Closure Device Deployment * Temporary Pacemaker Insertion In Crust Sorter * Endotracheal Intubation By Non-Cath Physician [...] guide. A premounted 4.00 x 30 mm H[place]ons Paullina (MINNA) was deployed with a maximum inflation [...] calculated STS risk score was 30.1%. A dwhbj-af-ezvzt procedure was performed on the pre-existing bioprosthetic stented prosthesis. The priority of the jpvhv-rt-hawss procedure wasElective. The procedure was performed under Moderate sedation performed byLynda Mcgowan M.D. (see anesthesia report for additional details). Alirio Hudson M.D. participated in the case (see Cardiac Surgery reportfor additional details). The TAVR sheath was a 14 Fr Corona eSheath Introducer and theaccess site was femoral. Rapid ventricular pacing was performed. An Corona Lai 3 Ultra RESILIA 23 mm THV (s/v=[id number])transcatheter valve was inserted using standard technique. The [...] to nor was it given inthe chemical lab supervisor. Recommended anti-platelet/anti-thrombotic regimen: Continue aspirin 81 mg daily for indefinitely. These recommendations are made at the time of the intervention.Patient and provider preferences or a changing clinical situation mayrequire modification of this regimen. Consult [facility] Interventional Cardiologyfor questions. Conclusions: * Nonobstructive disease [...] this regimen. Comments: Successful right transfemoral TAVR Oklqt-jy-Masag with a 23 mmSapien 3 THV. We [...] access site angiography, temporary pacemaker in chemical lab supervisor, intubation-non cath physician,vascular closure device, transthoracic echo and TAVR. Dr. Alirio Hudson M.D. performed the left heart catheterization, access site angiography, temporary pacemaker in chemical lab supervisor, vascular closure device,transthoracic echo , TAVR and [...] pH, POC 7.20(Crit ical) 7.35 - 7.45 [facility] Comment:Critical value OK, C C Lab. pCO2, POC 42 35 - 45 mmHg [facility] pO2, POC 260(H) 85 - 104 mmHg [facility] Base Excess, POC -11.0(L) -3.0 - 3.0 mmol/L [facility] Bicarbonate, POC 16.7(L) 20.0 - 26.0 mmol/L [facility] Sodium, POC 129(L) 135 - 145 mmol/L [facility] POC Potassium 3.8 3.5 - 5.0 mmol/L [facility] Ionized Calcium, POC 1.12(L) 1.15 - 1.33 mmol/L [facility] POC Hematocrit 23.0(L) 34.0 - 45.0 % [facility] POC Calc Hgb 7.8(L) 11.2 - 15.7 g/dL [facility] Comment:The calculation of h emoglobin from hematocrit assumes a normal MCHC. POC Bgas Loc CC Lab [facility] Blood 05/12/2023 8:50 AM EDT 05/13/2023 12:00 PM EDT Alirio Hudson MD CHEMISTRY ORDERABLE S [facility] [place] [address] * (ABNORMAL) Point of Care Blood Gas Historical (05/12/2023 8:10 AM EDT) pH, POC 7.27(Crit ical) 7.35 - 7.45 [facility] Comment:Critical value Yamel KRAUSE C Lab. pCO2, POC 37 35 - 45 mmHg [facility] pO2, POC 29(Critic al) 85 - 104 mmHg [facility] Comment:Critical value JIMI C C Lab. Base Excess, POC -10.0(L) -3.0 - 3.0 mmol/L [facility] Bicarbonate, POC 16.7(L) 20.0 - 26.0 mmol/L [facility] Sodium, POC 123(L) 135 - 145 mmol/L [facility] POC Potassium 4.0 3.5 - 5.0 mmol/L [facility] Ionized Calcium, POC 1.12(L) 1.15 - 1.33 mmol/L [facility] POC Hematocrit 27.0(L) 34.0 - 45.0 % [facility] POC Calc Hgb 9.2(L) 11.2 - 15.7 g/dL [facility] Comment:The calculation of h emoglobin from hematocrit assumes a normal MCHC. POC Bgas Loc CC Lab [facility] Blood 05/12/2023 8:10 AM EDT 05/13/2023 12:00 PM EDT Alirio Hudson MD CHEMISTRY ORDERABLE S Performing Organization Address City/[facility]/ZIP Co de Phone Number [facility] [place] [address] * (ABNORMAL) Lactate, whole blood, send to lab ([facility] (05/12/2023 7:00 AM EDT) Lactate WB 2.4(H) 0.5 - 2.2 mmol/L [facility] Blood 05/12/2023 7:00 AM EDT 05/12/2023 7:09 AM EDT Narrative Resulting Agency Comment Spec In Lab Radha Hollins MD CHEMISTRY ORDERABL ES Performing Organization Address [facility] Co de Phone Number [facility] [place] [address] * (ABNORMAL) Comprehensive metabolic panel (non-fasting) (05/12/2023 6:00 AM EDT) Glucose 167 65 - 199 mg/dL [facility] Comment:Diabetes: >=200 mg/d L plus symptoms Blood Urea Nitrogen 67(H) 8 - 18 mg/dL [facility] Creatinine 2.01(H) 0.70 - 1.20 mg/dL [facility] Sodium 131(L) 135 - 145 mmol/L [facility] Potassium 4.3 3.5 - 5.0 mmol/L [facility] Comment: Please note: ??Patients with WBC >100,000 may have falsely elevated Potassium levels. ??For accurate Potassium quantification in these patients send serum separator tube (gold top) for subsequent determinations. ??Contact the Clinical Chemistry Laboratory if there are any questions. Chloride 97(L) 98 - 107 mmol/L [facility] Carbon Dioxide 14(L) 22 - 31 mmol/L [facility] Anion Gap 20(H) 5 - 15 mmol/L [facility] Calcium 8.6 8.5 - 10.5 mg/dL [facility] Protein, Total 6.3 6.1 - 8.0 g/dL [facility] Albumin 3.5 3.2 - 5.2 g/dL [facility] Aspartate Aminotransferase 1,435(H) 0 - 30 unit/L [facility] Alanine Aminotransferase 1,174(H) 0 - 30 unit/L [facility] Alkaline Phosphatase 100 35 - 105 unit/L [facility] Bilirubin, Total 0.9 0.2 - 1.3 mg/dL [facility] Est Glomerular Filtration Rate 27(L) >=60 mL/min/1. 73 m?? [facility] [...] Lab Radha Hollins MD CHEMISTRY ORDERABL ES [facility] [place] [address] * (ABNORMAL) Coox2 (05/12/2023 5:08 AM EDT) pO2, Coox 24 mmHg [facility] Hgb Blood Gas 10.4(L) 11.7 - 15.5 g/dL [facility] Oxyhemoglobin, Coox 30.7 % [facility] Carboxyhemoglo bin, Coox 0.3 % [facility] Comment: Nonsmokers: 0.5-1.5% COHB Smokers: Variable, but usually less than 10% Toxic: 20-30% COHB Lethal: Greater than 60% COHB Methemoglobin, Coox 0.8 <=1.5 % [facility] Source Coox Mixed Venous [facility] Blood 05/12/2023 5:08 AM EDT 05/12/2023 5:08 AM EDT Radha Hollins MD POINT OF CARE TEST ORDERABLES [facility] [place] [address] * (ABNORMAL) Coox2 (05/12/2023 3:21 AM EDT) pO2, Coox 25 mmHg [facility] Hgb Blood Gas 10.8(L) 11.7 - 15.5 g/dL [facility] Oxyhemoglobin, Coox 32.7 % [facility] Carboxyhemoglo bin, Coox 0.3 % [facility] Comment: Nonsmokers: 0.5-1.5% COHB Smokers: Variable, but usually less than 10% Toxic: 20-30% COHB Lethal: Greater than 60% COHB Methemoglobin, Coox 0.7 <=1.5 % [facility] Source Coox Mixed Venous [facility] Blood 05/12/2023 3:21 AM EDT 05/12/2023 3:21 AM EDT Radha Hollins MD POINT OF CARE TEST ORDERABLES [facility] [place] [address] * (ABNORMAL) BLOOD GAS 2 ARTERIAL (05/12/2023 3:18 AM EDT) pH, Arterial 7.34(L) 7.35 - 7.45 [facility] PCO2, Arterial 30(L) 35 - 45 mmHg [facility] PO2, Arterial 72(L) 85 - 104 mmHg [facility] Bicarbonate, Arterial 16.0(L) 20.0 - 26.0 mmol/L [facility] Base Excess, Arterial -9.8(L) -3.0 - 3.0 mmol/L [facility] Hgb Blood Gas 11.0(L) 11.7 - 15.5 g/dL [facility] Oxyhemoglobin, Arterial 89.8(L) 94.0 - 97.0 % [facility] Carboxyhemoglob in, Arterial 0.3 % [facility] Comment: Nonsmokers: 0.5-1.5% COHB Smokers: Variable, but usually less than 10% Toxic: 20-30% COHB Lethal: Greater than 60% COHB Methemoglobin, Arterial 0.7 <=1.5 % [facility] Na Whole Blood 131(L) 135 - 145 mmol/L [facility] K Whole Blood 4.2 3.5 - 5.0 mmol/L [facility] Comment: Please note: Patients with WBC >100,000 may have falsely elevated Potassium levels. Contact the Clinical Chemistry Laboratory if there are any questions. ICa Whole Blood 1.12(L) 1.15 - 1.33 mmol/L [facility] Comment: Note: ??Total bilirubin higher than 20 mg/dL may lead to falsely low ionized calcium. CL Whole Blood 100 98 - 107 mmol/L [facility] Gluc Whole Bld 160 65 - 199 mg/dL [facility] Comment:Diabetes: >=200 mg/d L plus symptoms. Lactate WB 2.7(H) 0.5 - 2.2 mmol/L [facility] Flow Art 5.0 LPM [facility] Blood 05/12/2023 3:18 AM EDT 05/12/2023 3:18 AM EDT Radha Hollins MD POINT OF CARE TEST ORDERABLES [facility] [place] [address] * (ABNORMAL) Coox2 (05/12/2023 1:14 AM EDT) pO2, Coox 28 mmHg [facility] Hgb Blood Gas 10.9(L) 11.7 - 15.5 g/dL [facility] Oxyhemoglobin, Coox 37.3 % [facility] Carboxyhemoglo bin, Coox 0.3 % [facility] Comment: Nonsmokers: 0.5-1.5% COHB Smokers: Variable, but usually less than 10% Toxic: 20-30% COHB Lethal: Greater than 60% COHB Methemoglobin, Coox 0.5 <=1.5 % [facility] Source Coox Mixed Venous [facility] Blood 05/12/2023 1:14 AM EDT 05/12/2023 1:14 AM EDT Radha Hollins MD POINT OF CARE TEST ORDERABLES [facility] [place] [address] * (ABNORMAL) BLOOD GAS 2 ARTERIAL (05/12/2023 1:06 AM EDT) pH, Arterial 7.34(L) 7.35 - 7.45 [facility] PCO2, Arterial 30(L) 35 - 45 mmHg [facility] PO2, Arterial 81(L) 85 - 104 mmHg [facility] Bicarbonate, Arterial 15.7(L) 20.0 - 26.0 mmol/L [facility] Base Excess, Arterial -10.1(L) -3.0 - 3.0 mmol/L [facility] Hgb Blood Gas 11.0(L) 11.7 - 15.5 g/dL [facility] Oxyhemoglobin, Arterial 92.3(L) 94.0 - 97.0 % [facility] Carboxyhemoglob in, Arterial 0.2 % [facility] Comment: Nonsmokers: 0.5-1.5% COHB Smokers: Variable, but usually less than 10% Toxic: 20-30% COHB Lethal: Greater than 60% COHB Methemoglobin, Arterial 0.6 <=1.5 % [facility] Na Whole Blood 131(L) 135 - 145 mmol/L [facility] K Whole Blood 4.2 3.5 - 5.0 mmol/L [facility] Comment: Please note: Patients with WBC >100,000 may have falsely elevated Potassium levels. Contact the Clinical Chemistry Laboratory if there are any questions. ICa Whole Blood 1.13(L) 1.15 - 1.33 mmol/L [facility] Comment: Note: ??Total bilirubin higher than 20 mg/dL may lead to falsely low ionized calcium. CL Whole Blood 99 98 - 107 mmol/L [facility] Gluc Whole Bld 132 65 - 199 mg/dL [facility] Comment:Diabetes: >=200 mg/d L plus symptoms. Lactate WB 2.7(H) 0.5 - 2.2 mmol/L [facility] Flow Art 5.0 LPM [facility] Blood 05/12/2023 1:06 AM EDT 05/12/2023 1:06 AM EDT Radha Hollins MD POINT OF CARE TEST ORDERABLES Performing Organization Address City/State/[facility] Co de Phone Number [facility] [place] [address] * (ABNORMAL) Differential, Automated (05/12/2023 1:05 AM EDT) Neutrophil % 83.3 % [facility] Neutrophil Absolute 7.49(H) 1.70 - 6.10 x10(3)/mc L [facility] Lymph % 7.1 % [facility] Lymphocytes Abs 0.6(L) 0.9 - 3.2 x10(3)/mc L [facility] Monocyte % 8.9 % [facility] Monocyte Abs 0.8 0.3 - 0.9 x10(3)/mc L [facility] Eos % 0.0 % [facility] Eosinophils Abs 0.0 0.0 - 0.4 x10(3)/mc L [facility] Basophil % 0.1 % [facility] Baso Absolute 0.0 0.0 - 0.1 x10(3)/mc L [facility] Immature Gran % 0.60 % [facility] Comment: Immature granulocytes(IG's)percentage and absolute count will include metamyelocytes, myelocytes, and promyelocytes. Blood smears from CBCs yielding IG's will be scanned manually for concordance. If this scan disagrees with the automated IG or if promyelocytes are noted, a manual differential will be performed. Immature Gran Absolute 0.05(H) 0.00 - 0.04 x10(3)/mc L [facility] Blood 05/12/2023 1:05 AM EDT 05/12/2023 1:15 AM EDT Narrative Resulting Agency Comment Spec In Lab Gianni Fletcher MD HEMATOLOGY ORDERABLE S [facility] [place] [address] * (ABNORMAL) Hemogram (05/12/2023 1:05 AM EDT) White Blood Cell 9.0 4.0 - 9.5 x10(3)/[facility] Red Blood Cell 3.01(L) 4.00 - 5.21 x10(6)/ L [facility] Hemoglobin 9.8(L) 11.7 - 15.5 g/dL [facility] Hematocrit 28.7(L) 35.7 - 45.8 % [facility] Mean Cell Volume 95.3(H) 82.6 - 94.4 fL [facility] Mean Cell Hemoglobin 32.6(H) 27.1 - 32.0 pg [facility] Mean Cell Hemoglobin Concentration 34.1 31.7 - 35.0 g/dL [facility] Platelet 186 145 - 357 x10(3)/mc L [facility] RDW Standard Deviation 43.7 37.0 - 46.0 fL [facility] RDW coefficient of variation 12.7 11.5 - 14.1 % [facility] Mean Platelet Volume 10.3 7.6 - 12.9 fL [facility] NRBC% auto 0.0 % [facility] NRBC Absolute 0.000 0.000 - 0.000 x10(3)/ L [facility] Blood 05/12/2023 1:05 AM EDT 05/12/2023 1:15 AM EDT Narrative Resulting Agency Comment Spec In Lab Gianni Fletcher MD HEMATOLOGY ORDERABLE S [facility] [place] [place] [address] * (ABNORMAL) Comprehensive metabolic panel (non-fasting) (05/12/2023 1:05 AM EDT) Glucose 141 65 - 199 mg/dL [facility] Comment:Diabetes: >=200 mg/d L plus symptoms Blood Urea Nitrogen 63(H) 8 - 18 mg/dL [facility] Creatinine 1.86(H) 0.70 - 1.20 mg/dL [facility] Sodium 131(L) 135 - 145 mmol/L [facility] Potassium 4.4 3.5 - 5.0 mmol/L [facility] Comment: Please note: ??Patients with WBC >100,000 may have falsely elevated Potassium levels. ??For accurate Potassium quantification in these patients send serum separator tube (gold top) for subsequent determinations. ??Contact the Clinical Chemistry Laboratory if there are any questions. Chloride 96(L) 98 - 107 mmol/L [facility] Carbon Dioxide 14(L) 22 - 31 mmol/L [facility] Anion Gap 21(H) 5 - 15 mmol/L [facility] Calcium 9.0 8.5 - 10.5 mg/dL [facility] Protein, Total 6.6 6.1 - 8.0 g/dL [facility] [facility] Albumin 3.9 3.2 - 5.2 g/dL [facility] Aspartate Aminotransferase 1,227(H) 0 - 30 unit/L [facility] Alanine Aminotransferase 1,097(H) 0 - 30 unit/L [facility] Alkaline Phosphatase 108(H) 35 - 105 unit/L [facility] Bilirubin, Total 1.0 0.2 - 1.3 mg/dL [facility] Est Glomerular Filtration Rate 29(L) >=60 mL/min/1. 73 m?? [facility] [...] Lab Radha Hollins MD CHEMISTRY ORDERABL ES [facility] [place] [address] * XR Chest One View (05/12/2023 1:00 [...] ? Electronically signed by: Will Rowe MD, [facility] ([phone]), at 05/12/2023 3:16 AM Narrative 05/12/2023 3:16 [...] first. Electronically signed by: Will Rowe MD, [facility]([phone]), at 05/12/2023 3:16 AM Radha Hollins MD IMG DX ORDERABLES * (ABNORMAL) Coox2 (05/12/2023 12:30 AM EDT) pO2, Coox 22 mmHg [facility] Hgb Blood Gas 10.9(L) 11.7 - 15.5 g/dL [facility] Oxyhemoglobin, Coox 25.1 % [facility] Carboxyhemoglo bin, Coox 0.3 % [facility] Comment: Nonsmokers: 0.5-1.5% COHB Smokers: Variable, but usually less than 10% Toxic: 20-30% COHB Lethal: Greater than 60% COHB Methemoglobin, Coox 1.4 <=1.5 % [facility] Source Coox Mixed Venous [facility] Blood 05/12/2023 12:3 0 AM EDT 05/12/2023 12:30 AM EDT Radha Hollins MD POINT OF CARE TEST ORDERABLES [facility] [place] [address] * XR Chest One View (05/11/2023 11:45 [...] ? Electronically signed by: Will Rowe MD, [facility] ([phone]), at 05/11/2023 11:57 PM Narrative 05/11/2023 11:57 [...] first. Electronically signed by: Will Rowe MD, [facility]([phone]), at 05/11/2023 11:57 PM Radha Hollins MD IMG DX ORDERABLES * (ABNORMAL) Lactate, whole blood, send to lab ([facility] (05/11/2023 7:40 PM EDT) Lactate WB 4.8(Critic al) 0.5 - 2.2 mmol/L [facility] Comment:Called by: IMM, Read back by: Magdalena Baires, Date/Time:05/11/23 19:54. Blood 05/11/2023 7:40 PM EDT 05/11/2023 7:49 PM EDT Narrative Resulting Agency Comment Spec In Lab Radha Hollins MD CHEMISTRY ORDERABL ES Performing Organization Address [facility] Co de Phone Number [facility] [place] [address] * Urine culture (05/11/2023 7:22 PM EDT) Pathologist [facility] Urine Culture 50,000-99,000 cfu/ml Normal mucosal herman Susceptibilit y testing not routinely performed for Coagulase Negative Staphylococcu s species and other Gram Positive organisms from urine. [facility] Clean Catch Urine 05/11/2023 7:22 PM EDT 05/11/2023 8:50 PM EDT Narrative Resulting Agency Comment Spec In Lab Brody Kaplan APRN MICROBIOLOGY - GENE RAL ORDERABLES Performing Organization Address [facility] de Phone Number [facility] [place] [address] * (ABNORMAL) Urinalysis Microscopic Exam (05/11/2023 7:22 PM EDT) RBC, Urine 2 0 - 4 /HPF [facility] WBC, Urine >100(H) 0 - 5 /HPF [facility] Bacteria, Urine Occasional (A) None /HPF [facility] Squamous Epithelial Cells Raw Data, Urine 5(H) <=4 /HPF [facility] Hyaline Casts, Urine 3(H) 0 - 2 /LPF [facility] Clean Catch Urine 05/11/2023 7:22 PM EDT 05/11/2023 7:31 PM EDT Narrative Resulting Agency Comment Spec In Lab Brody Kaplan APRN URINE ORDERABLES [facility] [place] [address] * (ABNORMAL) Urinalysis with reflex Culture (05/11/2023 7:22 PM EDT) Glucose, Urine Dipstick Negative Negative mg/dL [facility] Protein, Urine Dipstick Trace(A) Negative mg/dL [facility] Bilirubin, Urine Dipstick Negative Negative mg/dL [facility] Comment: Clinical correlation required for positive Urine Bilirubin results as false positive may occur with some drugs and drug related products. If a false positive is suspected a serum total bilirubin should be considered if clinically indicated. Urobilinogen, Urine Dipstick Normal Normal mg/dL [facility] pH, Urn (dipstick) 5.0 5.0 - 8.0 [facility] Blood, Urine Dipstick Trace(A) Negative mg/dL [facility] Ketone, Urine Dipstick Negative Negative mg/dL [facility] Nitrite, Urine Dipstick Negative Negative [facility] Leukocytes, Urine Dipstick Moderate(A) Negative mcL [facility] Appearance, Urine Dipstick Cloudy(A) Clear [facility] Specific [place] Urine Automated >=1.030(A) 1.005 - 1.030 [facility] Color, Urine Dipstick Yellow Yellow [facility] Reflex to Culture Yes [facility] Clean Catch Urine 05/11/2023 7:22 PM EDT 05/11/2023 7:31 PM EDT Narrative Resulting Agency Comment Spec In Lab Brody Kaplan FAMILY PRACTICE MD URINE ORDERABLES [facility] [place] [address] * (ABNORMAL) pro-Brain Natriuretic Peptide (05/11/2023 7:11 PM EDT) NT-proBNP >35,000(H) <=124 pg/mL [facility] Blood 05/11/2023 7:11 PM EDT 05/11/2023 7:26 PM EDT Narrative Resulting Agency Comment Spec In Lab Radha Hollins MD CHEMISTRY ORDERABL ES Performing Organization Address [facility]/ZIP Co de Phone Number [facility] [place] [address] * (ABNORMAL) Lactate, whole blood, send to lab ([facility]) (05/11/2023 2:47 PM EDT) Lactate WB 2.9(H) 0.5 - 2.2 mmol/L [facility] Blood 05/11/2023 2:47 PM EDT 05/11/2023 2:53 PM EDT Narrative Resulting Agency Comment Spec In Lab Juan Luis Gonzalez MD CHEMISTRY ORDERABLES Performing Organization Address [facility] Co de Phone Number [facility] [place] [address] * (ABNORMAL) CT Angiogram Abdomen & Pelvis [...] ? Electronically signed by: Cullen Narayanan MD, [facility] ([phone]), at 05/11/2023 4:37 PM Narrative 05/11/2023 4:37 [...] 610 mm2 Circumference: 88 mm Calcification: Mild Lbybbjx-my-lmjthozf height: Left: 6.2 mm Right: 5.8 mm THORACIC AORTA Description: Normal course and caliber. ??Mild diffuse atherosclerotic changes. No acute aortopathy noted. Discovery Guide dimensions: Aortic root: 27.6 mm Max ascending aorta: 30.5 mm x 27.7 mm Suggested fluoroscopic angulation based on line extending through the nadirs of the three sinuses of Valsalva, set equidistant: ?? BHUTANESE ??9 degrees; cranial 7 degrees MITRAL: Mitral [...] 610 mm2 Circumference: 88 mm Calcification: Mild Hvidneh-vl-rlcxfldo height: Left: 6.2 mm Right: 5.8 mm THORACIC AORTA Description: Normal course and caliber. Mild diffuse atheroscleroticchanges. No acute aortopathy noted. Discovery Guide dimensions: Aortic root: 27.6 mm Max ascending aorta: 30.5 mm x 27.7 mm Suggested fluoroscopic angulation based on line extending through thenadirs of the three sinuses of Valsalva, set equidistant: BHUTANESE 9 degrees; cranial 7 degrees MITRAL: Mitral [...] first. Electronically signed by: Cullen Narayanan MD, [facility]([phone]), at 05/11/2023 4:37 PM Antelmo Sharma MD IMG CT ORDERABLES * (ABNORMAL) Lactate, whole blood, send to lab ([facility] (05/11/2023 9:29 AM EDT) Pathologist [facility] Lactate WB 3.1(H) 0.5 - 2.2 mmol/L [facility] Blood 05/11/2023 9:29 AM EDT 05/11/2023 9:38 AM EDT Narrative Resulting Agency Comment Spec In Lab Juan Luis Gonzalez MD CHEMISTRY ORDERABLES [facility] [place] [address] * (ABNORMAL) Differential, Automated (05/11/2023 4:42 AM EDT) Neutrophil % 78.1 % [facility] Neutrophil Absolute 5.46 1.70 - 6.10 x10(3)/mc L [facility] Lymph % 10.6 % [facility] Lymphocytes Abs 0.7(L) 0.9 - 3.2 x10(3)/mc L [facility] Monocyte % 9.6 % [facility] Monocyte Abs 0.7 0.3 - 0.9 x10(3)/mc L [facility] Eos % 0.0 % [facility] Eosinophils Abs 0.0 0.0 - 0.4 x10(3)/mc L [facility] Basophil % 0.4 % [facility] Baso Absolute 0.0 0.0 - 0.1 x10(3)/ L [facility] Immature Gran % 1.30 % [facility] Comment: Immature granulocytes(IG's)percentage and absolute count will include metamyelocytes, myelocytes, and promyelocytes. Blood smears from CBCs yielding IG's will be scanned manually for concordance. If this scan disagrees with the automated IG or if promyelocytes are noted, a manual differential will be performed. Immature Gran Absolute 0.09(H) 0.00 - 0.04 x10(3)/ L [facility] Blood 05/11/2023 4:42 AM EDT 05/11/2023 4:49 AM EDT Narrative Resulting Agency Comment Spec In Lab Klaudia Reid MD HEMATOLOGY OR DERABLES Performing Organization Address City/State/[facility] Co de Phone Number [facility] [place] [address] * (ABNORMAL) Hemogram (05/11/2023 4:42 AM EDT) White Blood Cell 7.0 4.0 - 9.5 x10(3)/[facility] Red Blood Cell 3.44(L) 4.00 - 5.21 x10(6)/[facility] Hemoglobin 11.1(L) 11.7 - 15.5 g/dL [facility] Hematocrit 32.7(L) 35.7 - 45.8 % [facility] Mean Cell Volume 95.1(H) 82.6 - 94.4 fL [facility] Mean Cell Hemoglobin 32.3(H) 27.1 - 32.0 pg [facility] Mean Cell Hemoglobin Concentration 33.9 31.7 - 35.0 g/dL [facility] Platelet 165 145 - 357 x10(3)/[facility] RDW Standard Deviation 43.1 37.0 - 46.0 fL [facility] RDW coefficient of variation 12.7 11.5 - 14.1 % [facility] Mean Platelet Volume 10.1 7.6 - 12.9 fL [facility] NRBC% auto 0.0 % [facility] NRBC Absolute 0.000 0.000 - 0.000 x10(3)/mc L [facility] Blood 05/11/2023 4:42 AM EDT 05/11/2023 4:49 AM EDT Narrative Resulting Agency Comment Spec In Lab Klaudia Reid MD HEMATOLOGY OR DERABLES Performing Organization Address [facility] Co de Phone Number [facility] [place] [address] * Heparin (unfractionated) Level (05/11/2023 4:42 AM EDT) UF Heparin 0.46 IU/mL [facility] Comment: Heparin (anti-Xa) levels [...] MD HEMATOLOGY ORDERAB LES Performing Organization Address [facility] Co de Phone Number [facility] [place] [address] * (ABNORMAL) Comprehensive metabolic panel (non-fasting) (05/11/2023 4:42 AM EDT) Glucose 143 65 - 199 mg/dL [facility] Comment:Diabetes: >=200 mg/d L plus symptoms Blood Urea Nitrogen 42(H) 8 - 18 mg/dL [facility] Creatinine 1.24(H) 0.70 - 1.20 mg/dL [facility] Sodium 134(L) 135 - 145 mmol/L [facility] Potassium 4.6 3.5 - 5.0 mmol/L [facility] Comment: Please note: ??Patients with WBC >100,000 may have falsely elevated Potassium levels. ??For accurate Potassium quantification in these patients send serum separator tube (gold top) for subsequent determinations. ??Contact the Clinical Chemistry Laboratory if there are any questions. Chloride 99 98 - 107 mmol/L [facility] Carbon Dioxide 14(L) 22 - 31 mmol/L [facility] Anion Gap 21(H) 5 - 15 mmol/L [facility] Calcium 9.6 8.5 - 10.5 mg/dL [facility] Protein, Total 7.2 6.1 - 8.0 g/dL [facility] Albumin 3.7 3.2 - 5.2 g/dL [facility] Aspartate Aminotransferase 144(H) 0 - 30 unit/L [facility] Comment:result rechecked-ssc Alanine Aminotransferase 130(H) 0 - 30 unit/L [facility] Comment:result rechecked-ssc Alkaline Phosphatase 72 35 - 105 unit/L [facility] Bilirubin, Total 0.8 0.2 - 1.3 mg/dL [facility] Est Glomerular Filtration Rate 48(L) >=60 mL/min/1. 73 m?? [facility] [...] Lab Radha Hollins MD CHEMISTRY ORDERABL ES [facility] [place] [address] * EKG 12 Lead (05/10/2023 1:16 PM EDT) Ventricular rate 118 BPM MUSE SYSTEM Atrial Rate 118 BPM MUSE SYSTEM P-R Interval 152 ms MUSE SYSTEM QRS Duration 104 ms MUSE SYSTEM Q-T Interval 316 ms MUSE SYSTEM QTC Calculated (Bezet) 442 ms MUSE SYSTEM Calculated P [place] 29 degrees MUSE SYSTEM Calculated R [place] 18 degrees MUSE SYSTEM Calculated T [place] -173 degrees MUSE SYSTEM INTERPRETATION Sinus tachycardia [...] Anterior leads Confirmed by MD Mono, Eleni ([id number]) on 05/10/2023 8:47:46 PM MUSE SYSTEM 05/10/2023 1:16 PM EDT 05/10/2023 8:47 PM EDT Juan Luis Gonzalez MD ECG ORDERABLES Performing Organization Address City/[facility]/ZIP Co de Phone Number MUSE SYSTEM * Lactate, whole blood, send to lab ([facility] (05/10/2023 11:52 AM EDT) Pathologist [facility] Lactate WB 1.8 0.5 - 2.2 mmol/L [facility] Blood 05/10/2023 11:5 2 AM EDT 05/10/2023 12:13 PM EDT Narrative Resulting Agency Comment Spec In Lab Juan Luis Gonzalez MD CHEMISTRY ORDERABLES [facility] [place] [address] * XR Chest One View (05/10/2023 11:16 [...] ? Electronically signed by: ALIX RUVALCABA MD, [facility] ([phone]), at 05/10/2023 1:25 PM Narrative 05/10/2023 1:25 [...] first. Electronically signed by: ALIX RUVALCABA MD, [facility]([phone]), at 05/10/2023 1:25 PM Juan Luis Gonzalez MD IMG DX ORDERABLES * EKG 12 Lead (05/10/2023 7:59 AM EDT) Ventricular rate 115 BPM MUSE SYSTEM Atrial Rate 115 BPM MUSE SYSTEM P-R Interval 142 ms MUSE SYSTEM QRS Duration 102 ms MUSE SYSTEM Q-T Interval 322 ms MUSE SYSTEM QTC Calculated (Bezet) 445 ms MUSE SYSTEM Calculated P [place] 36 degrees MUSE SYSTEM Calculated R [place] 28 degrees MUSE SYSTEM Calculated T [place] -119 degrees MUSE SYSTEM INTERPRETATION Sinus tachycardia with frequent Premature ventricular complexes and Fusion complexes ST & T wave abnormality, consider lateral ischemia Abnormal ECG When compared with ECG of 08-MAY-2023 15:51, No significant change was found I personally reviewed the tracing and edited the fellows interpretation Confirmed by fellow MD Anitha, Carissa ([id number]) on 05/11/2023 6:19:54 AM Confirmed by MD Tram, Chel ([id number]) on 05/11/2023 3:18:56 PM MUSE SYSTEM 05/10/2023 7:59 AM EDT 05/11/2023 3:18 PM EDT Radha Hollins MD ECG ORDERABLES MUSE SYSTEM * (ABNORMAL) Differential, Automated (05/10/2023 2:28 AM EDT) Neutrophil % 77.1 % [facility] Neutrophil Absolute 4.01 1.70 - 6.10 x10(3)/mc L [facility] Lymph % 14.0 % [facility] Lymphocytes Abs 0.7(L) 0.9 - 3.2 x10(3)/mc L [facility] Monocyte % 7.7 % [facility] Monocyte Abs 0.4 0.3 - 0.9 x10(3)/mc L [facility] Eos % 0.4 % [facility] Eosinophils Abs 0.0 0.0 - 0.4 x10(3)/ L [facility] Basophil % 0.4 % [facility] Baso Absolute 0.0 0.0 - 0.1 x10(3)/ L [facility] Immature Gran % 0.40 % [facility] Comment: Immature granulocytes(IG's)percentage and absolute count will include metamyelocytes, myelocytes, and promyelocytes. Blood smears from CBCs yielding IG's will be scanned manually for concordance. If this scan disagrees with the automated IG or if promyelocytes are noted, a manual differential will be performed. Immature Gran Absolute 0.02 0.00 - 0.04 x10(3)/[facility] Blood 05/10/2023 2:28 AM EDT 05/10/2023 2:57 AM EDT Narrative Resulting Agency Comment Spec In Lab Klaudia Reid MD HEMATOLOGY OR DERABLES [facility] [place] [address] * (ABNORMAL) Hemogram (05/10/2023 2:28 AM EDT) White Blood Cell 5.2 4.0 - 9.5 x10(3)/ L [facility] Red Blood Cell 3.11(L) 4.00 - 5.21 x10(6)/mc L [facility] Hemoglobin 10.2(L) 11.7 - 15.5 g/dL [facility] Hematocrit 30.2(L) 35.7 - 45.8 % [facility] Mean Cell Volume 97.1(H) 82.6 - 94.4 fL [facility] Mean Cell Hemoglobin 32.8(H) 27.1 - 32.0 pg [facility] Mean Cell Hemoglobin Concentration 33.8 31.7 - 35.0 g/dL [facility] Platelet 151 145 - 357 x10(3)/ L [facility] RDW Standard Deviation 44.9 37.0 - 46.0 fL [facility] RDW coefficient of variation 12.8 11.5 - 14.1 % [facility] Mean Platelet Volume 9.8 7.6 - 12.9 fL [facility] NRBC% auto 0.0 % [facility] NRBC Absolute 0.000 0.000 - 0.000 x10(3)/mc L [facility] Blood 05/10/2023 2:28 AM EDT 05/10/2023 2:57 AM EDT Narrative Resulting Agency Comment Spec In Lab Klaudia Reid MD HEMATOLOGY OR DERABLES Performing Organization Address City/State/[facility] Co de Phone Number [facility] [place] [address] * (ABNORMAL) Comprehensive metabolic panel (non-fasting) (05/10/2023 2:28 AM EDT) Glucose 100 65 - 199 mg/dL [facility] Comment:Diabetes: >=200 mg/d L plus symptoms Blood Urea Nitrogen 30(H) 8 - 18 mg/dL [facility] Creatinine 0.90 0.70 - 1.20 mg/dL [facility] Sodium 134(L) 135 - 145 mmol/L [facility] Potassium 4.1 3.5 - 5.0 mmol/L [facility] Comment: Please note: ??Patients with WBC >100,000 may have falsely elevated Potassium levels. ??For accurate Potassium quantification in these patients send serum separator tube (gold top) for subsequent determinations. ??Contact the Clinical Chemistry Laboratory if there are any questions. Chloride 102 98 - 107 mmol/L [facility] Carbon Dioxide 20(L) 22 - 31 mmol/L [facility] Anion Gap 12 5 - 15 mmol/L [facility] Calcium 9.3 8.5 - 10.5 mg/dL [facility] Protein, Total 6.4 6.1 - 8.0 g/dL [facility] Albumin 3.7 3.2 - 5.2 g/dL [facility] Aspartate Aminotransferase 24 0 - 30 unit/L [facility] Alanine Aminotransferase 14 0 - 30 unit/L [facility] Alkaline Phosphatase 70 35 - 105 unit/L [facility] Bilirubin, Total 0.5 0.2 - 1.3 mg/dL [facility] Est Glomerular Filtration Rate 70 >=60 mL/min/1. 73 m?? [facility] Comment: This patient's estimated [...] Lab Radha Hollins MD CHEMISTRY ORDERABL ES [facility] [place] [address] * Heparin (unfractionated) Level (05/10/2023 2:28 AM EDT) UF Heparin 0.37 IU/mL [facility] Comment: Heparin (anti-Xa) [...] Lab Radha Hollins MD [place] [address] * (ABNORMAL) Differential, Automated (05/09/2023 4:00 AM EDT) Neutrophil % 81.7 % [facility] Neutrophil Absolute 5.26 1.70 - 6.10 x10(3)/mc L [facility] Lymph % 10.7 % [facility] Lymphocytes Abs 0.7(L) 0.9 - 3.2 x10(3)/mc L [facility] Monocyte % 6.5 % [facility] Monocyte Abs 0.4 0.3 - 0.9 x10(3)/mc L [facility] Eos % 0.5 % [facility] Eosinophils Abs 0.0 0.0 - 0.4 x10(3)/mc L [facility] Basophil % 0.3 % [facility] Baso Absolute 0.0 0.0 - 0.1 x10(3)/mc L [facility] Immature Gran % 0.30 % [facility] Comment: Immature granulocytes(IG's)percentage and absolute count will include metamyelocytes, myelocytes, and promyelocytes. Blood smears from CBCs yielding IG's will be scanned manually for concordance. If this scan disagrees with the automated IG or if promyelocytes are noted, a manual differential will be performed. Immature Gran Absolute 0.02 0.00 - 0.04 x10(3)/mc L [facility] Blood 05/09/2023 4:00 AM EDT 05/09/2023 4:19 AM EDT Narrative Resulting Agency Comment Spec In Lab Klaudia Reid MD HEMATOLOGY OR DERABLES Performing Organization Address City/[facility]/ZIP Co de Phone Number [facility] [place] [address] * (ABNORMAL) Hemogram (05/09/2023 4:00 AM EDT) White Blood Cell 6.4 4.0 - 9.5 x10(3)/mc L [facility] Red Blood Cell 3.15(L) 4.00 - 5.21 x10(6)/mc L [facility] Hemoglobin 10.2(L) 11.7 - 15.5 g/dL [facility] Hematocrit 30.3(L) 35.7 - 45.8 % [facility] Mean Cell Volume 96.2(H) 82.6 - 94.4 fL [facility] Mean Cell Hemoglobin 32.4(H) 27.1 - 32.0 pg [facility] Mean Cell Hemoglobin Concentration 33.7 31.7 - 35.0 g/dL [facility] Platelet 151 145 - 357 x10(3)/mc L [facility] RDW Standard Deviation 44.7 37.0 - 46.0 fL [facility] RDW coefficient of variation 12.8 11.5 - 14.1 % [facility] Mean Platelet Volume 9.4 7.6 - 12.9 fL [facility] NRBC% auto 0.0 % [facility] NRBC Absolute 0.000 0.000 - 0.000 x10(3)/ L [facility] Blood 05/09/2023 4:00 AM EDT 05/09/2023 4:19 AM EDT Narrative Resulting Agency Comment Spec In Lab Klaudia Reid MD HEMATOLOGY OR DERABLES Performing Organization Address City/State/[facility] Co de Phone Number [facility] [place] [address] * Heparin (unfractionated) Level (05/09/2023 4:00 AM EDT) UF Heparin 0.47 IU/mL [facility] Comment: Heparin (anti-Xa) [...] Lab Radha Hollins MD HEMATOLOGY ORDERAB LES [facility] [place] [place] [address] * (ABNORMAL) Comprehensive metabolic panel (non-fasting) (05/09/2023 4:00 AM EDT) Glucose 108 65 - 199 mg/dL [facility] Comment:Diabetes: >=200 mg/d L plus symptoms Blood Urea Nitrogen 31(H) 8 - 18 mg/dL [facility] Creatinine 1.03 0.70 - 1.20 mg/dL [facility] Sodium 137 135 - 145 mmol/L [facility] Potassium 4.4 3.5 - 5.0 mmol/L [facility] [facility] Comment: Please note: ??Patients with WBC >100,000 may have falsely elevated Potassium levels. ??For accurate Potassium quantification in these patients send serum separator tube (gold top) for subsequent determinations. ??Contact the Clinical Chemistry Laboratory if there are any questions. Chloride 102 98 - 107 mmol/L [facility] Carbon Dioxide 20(L) 22 - 31 mmol/L [facility] Anion Gap 15 5 - 15 mmol/L [facility] Calcium 9.3 8.5 - 10.5 mg/dL [facility] Protein, Total 6.6 6.1 - 8.0 g/dL [facility] Albumin 3.8 3.2 - 5.2 g/dL [facility] Aspartate Aminotransferase 32(H) 0 - 30 unit/L [facility] Alanine Aminotransferase 18 0 - 30 unit/L [facility] Alkaline Phosphatase 78 35 - 105 unit/L [facility] Bilirubin, Total 0.5 0.2 - 1.3 mg/dL [facility] Est Glomerular Filtration Rate 60 >=60 mL/min/1. 73 m?? [facility] [...] MD CHEMISTRY ORDERABL ES Performing Organization Address [facility] Co de Phone Number [facility] [place] [address] * (ABNORMAL) pro-Brain Natriuretic Peptide (05/08/2023 4:00 PM EDT) NT-proBNP 25,503(H) <=124 pg/mL [facility] Blood Venous Draw / Unknown 05/08/2023 4:00 PM EDT 05/08/2023 4:25 PM EDT Narrative Resulting Agency Comment Spec In Lab Juan Luis Gonzalez MD CHEMISTRY ORDERABLES Performing Organization Address [facility] Co de Phone Number [facility] [place] [place] [address] * Magnesium (05/08/2023 4:00 PM EDT) Magnesium 0.82 0.69 - 1.07 mmol/L [facility] Blood 05/08/2023 4:00 PM EDT 05/08/2023 4:06 PM EDT Narrative Resulting Agency Comment Spec In Lab Enriqeu Chua MD CHEMISTRY ORDERABLES Performing Organization Address [facility] Co de Phone Number [facility] [place] [address] * Potassium (05/08/2023 4:00 PM EDT) Potassium 3.9 3.5 - 5.0 mmol/L [facility] Comment: Please note: ??Patients [...] MD CHEMISTRY ORDERABL ES Performing Organization Address [facility] Co de Phone Number [facility] [place] [address] * Heparin (unfractionated) Level (05/08/2023 4:00 PM EDT) UF Heparin 0.43 IU/mL [facility] Comment: Heparin (anti-Xa) levels [...] MD HEMATOLOGY ORDERAB LES Performing Organization Address [facility]/ZIP Co de Phone Number [facility] [place] [address] * EKG 12 Lead (05/08/2023 3:51 PM EDT) Ventricular rate 98 BPM MUSE SYSTEM Atrial Rate 98 BPM MUSE SYSTEM P-R Interval 150 ms MUSE SYSTEM QRS Duration 102 ms MUSE SYSTEM Q-T Interval 358 ms MUSE SYSTEM QTC Calculated (Bezet) 457 ms MUSE SYSTEM Calculated P [place] 38 degrees MUSE SYSTEM Calculated R [place] 48 degrees MUSE SYSTEM Calculated T [place] -112 degrees MUSE SYSTEM INTERPRETATION Sinus rhythm with frequent and consecutive Premature ventricular and fusion complexes Septal infarct , age undetermined ST & T wave abnormality, consider anterolateral ischemia Abnormal ECG When compared with ECG of 09-NOV-2022 11:17, T wave inversion now evident in Anterolateral leads Confirmed by MD Harshil, Enrique Bell ([id number]) on 05/10/2023 8:11:46 AM MUSE SYSTEM 05/08/2023 3:51 PM EDT 05/10/2023 8:11 AM EDT Radha Hollins MD ECG ORDERABLES MUSE SYSTEM * (ABNORMAL) Differential, Automated (05/08/2023 11:38 AM EDT) Pathologist [facility] Neutrophil % 71.3 % [facility] Neutrophil Absolute 2.91 1.70 - 6.10 x10(3)/mc L [facility] Lymph % 19.1 % [facility] Lymphocytes Abs 0.8(L) 0.9 - 3.2 x10(3)/mc L [facility] Monocyte % 9.0 % [facility] Monocyte Abs 0.4 0.3 - 0.9 x10(3)/mc L [facility] Eos % 0.2 % [facility] Eosinophils Abs 0.0 0.0 - 0.4 x10(3)/mc L [facility] Basophil % 0.2 % [facility] Baso Absolute 0.0 [...] x10(3)/mc L [facility] Blood 05/08/2023 11:3 8 AM EDT 05/08/2023 11:44 AM EDT Narrative Resulting Agency Comment Spec In Lab Lincoln Sal MD HEMATOLOGY ORDERA BLES [facility] [place] [address] * (ABNORMAL) Hemogram (05/08/2023 11:38 AM EDT) White Blood Cell 4.1 4.0 - 9.5 x10(3)/mc L [facility] Red Blood Cell 3.05(L) 4.00 - 5.21 x10(6)/[facility] Hemoglobin 10.2(L) 11.7 - 15.5 g/dL [facility] Hematocrit 29.6(L) 35.7 - 45.8 % [facility] Mean Cell Volume 97.0(H) 82.6 - 94.4 fL [facility] Mean Cell Hemoglobin 33.4(H) 27.1 - 32.0 pg [facility] Mean Cell Hemoglobin Concentration 34.5 31.7 - 35.0 g/dL [facility] Platelet 136(L) 145 - 357 x10(3)/mc L [facility] RDW Standard Deviation 44.3 37.0 - 46.0 fL [facility] RDW coefficient of variation 12.6 11.5 - 14.1 % [facility] Mean Platelet Volume 9.4 7.6 - 12.9 fL [facility] NRBC% auto 0.0 % [facility] NRBC Absolute 0.000 0.000 - 0.000 x10(3)/mc L [facility] Blood 05/08/2023 11:3 8 AM EDT 05/08/2023 11:44 AM EDT Narrative Resulting Agency Comment Spec In Lab Lincoln Sal MD HEMATOLOGY ORDERA BLES Performing Organization Address City/[facility] Co de Phone Number [facility] [place] [address] * TSH (05/08/2023 11:38 AM EDT) Thyroid Stimulating Hormone 1.27 0.27 - 4.20 mcIU/mL [facility] Comment: Reference Interval (mcIU/mL): Females: ??First Trimester: 0.23-3.88 ??Second Trimester: 0.22-3.90 ??Third Trimester: 0.44-4.66 Blood 05/08/2023 11:3 8 AM EDT 05/08/2023 11:44 AM EDT Narrative Resulting Agency Comment Spec In Lab Enrique Chua MD CHEMISTRY ORDERABLES Performing Organization Address [facility] Co de Phone Number [facility] [place] [address] * (ABNORMAL) Phosphorus (05/08/2023 11:38 AM EDT) Phosphorus 4.7(H) 2.5 - 4.5 mg/dL [facility] Blood 05/08/2023 11:3 8 AM EDT 05/08/2023 11:44 AM EDT Narrative Resulting Agency Comment Spec In Lab Enrique Chua MD CHEMISTRY ORDERABLES Performing Organization Address City/[facility] Co de Phone Number [facility] [place] [address] * Magnesium (05/08/2023 11:38 AM EDT) Magnesium 0.76 0.69 - 1.07 mmol/L [facility] Blood 05/08/2023 11:3 8 AM EDT 05/08/2023 11:44 AM EDT Narrative Resulting Agency Comment Spec In Lab Enrique Chua MD CHEMISTRY ORDERABLES Performing Organization Address City/[facility]/ZIP Co de Phone Number [facility] [place] [address] * (ABNORMAL) Basic Metabolic Panel (non-fasting) (05/08/2023 11:38 AM EDT) Glucose 97 65 - 199 mg/dL [facility] Comment:Diabetes: >=200 mg/d L plus symptoms Blood Urea Nitrogen 27(H) 8 - 18 mg/dL [facility] Creatinine 1.02 0.70 - 1.20 mg/dL [facility] Sodium 139 135 - 145 mmol/L [facility] Potassium 4.2 3.5 - 5.0 mmol/L [facility] Comment: Please note: ??Patients with WBC >100,000 may have falsely elevated Potassium levels. ??For accurate Potassium quantification in these patients send serum separator tube (gold top) for subsequent determinations. ??Contact the Clinical Chemistry Laboratory if there are any questions. Chloride 105 98 - 107 mmol/L [facility] Carbon Dioxide 20(L) 22 - 31 mmol/L [facility] Anion Gap 14 5 - 15 mmol/L [facility] Calcium 9.4 8.5 - 10.5 mg/dL [facility] Est Glomerular Filtration Rate 60 >=60 mL/min/1. 73 m?? [facility] [...] In Lab Enrique Chua MD CHEMISTRY ORDERABLES [facility] [place] [place] [address] * ECHO COMPLETE (05/08/2023 11:02 AM EDT) EF 25 HEARTLAB SYSTEM Anatomical Region Laterality Modality Cardiac Other 05/08/2023 10:0 3 AM EDT Narrative 05/08/2023 11:51 AM EDT ? Echocardiogram Report Name: PURNIMA THACKER ?Study Date: 05/08/2023 10:03 AMBP: 92/64 mmHg ? Patient Location: [facility]^CV29^A : 1955 ? Height: 155 cm ? Account: [id number] Age: 67 yrs ? Weight: 78 kg Gender: Female ?BSA: 1.8 m2 Ordering Physician: ENRIQUE CHUA Referring Physician: MARIO ALBERTO CHIN Performed By: CHUCKIE Canchola Reason For Study: SAVR Stenosis Exam Location: [facility]. Interpretation Summary -Left ventricle is [...] worsening stenosis. Mitral regurgitation is similar. Procedure Complete-[id number]. Satisfactory quality. There is normal sinus rhythm. [...] Study Date: 0:03 AMBP: 92/64 mmHg Patient Location:[facility]^CV29^A : 1955 Height: 155 cm Account: [id number] Age: 67 yrs Weight: 78 kg Gender: Female BSA: 1.8 m2 Ordering Physician: ENRIQUE CHUA Referring Physician: MARIO ALBERTO CHIN Performed By: CHUCKIE Canchola Reason For Study: SAVR Stenosis Exam Location: [facility]. Interpretation Summary -Left ventricle is [...] suggestsworsening stenosis. Mitral regurgitation is similar. Procedure Complete-[id number]. Satisfactory quality. There is normal sinus rhythm. [...] 9:45 AM EDT) UF Heparin 0.54 IU/mL [facility] Comment: Heparin (anti-Xa) [...] Lab Enrique Chua MD HEMATOLOGY ORDERABLE S [facility] [place] [address] documented in this encounter Visit Diagnoses Diagnosis S/P TAVR (transcatheter aortic valve replacement)- Primary Aortic valve stenosis, etiology of cardiac valve disease unspecified Heart failure with reduced ejection fraction due to heart valve disease Mild coronary artery disease by [facility] 11/09/2022 Mixed connective tissue disease [...] fraction Mild coronary artery disease by [facility] 11/09/2022 Stenosis of prosthetic aortic [...] dose on Wed05/12/23 at 1030, Until Discontinued, [place] teeth, Routine Given 05/12/2023 10:04 AM EDT [...] at 0831, Side port TKO rate, per [facility] flush protocol Rate/Dose Verify 05/13/2023 6:00 AM EDT 10 mL/hr 10 mL/hr Rate/Dose Verify 05/13/2023 4:00 AM EDT 10 mL/hr 10 mL/h r Rate/Dose Verify 05/13/2023 2:00 AM EDT 10 mL/hr 10 mL/h r sodium chloride 0.9% infusion 10-30 mL/hr, Intravenous, DAILY PRN, Starting on Wed05/12/23 at 0944, Until Wed05/17/23 at 0831, Side port TKO rate, per [facility] flush protocol. Rate/Dose Verify 05/17/2023 8:00 [...] Routine documented in this encounter Care Teams Box Toe Buffer Relationship Specialty Start Date End Date Magdalena Acosta MD [address] [place] [address] PCP - General Family Medicine 02/05/23 documented as of this encounter
--- OUTSIDE RECORDS SUMMARY | 2024-06-20 15:51 | XMS_ITS | Encounter Summary ---
Author Organization [facility] Address [facility] [place] [address] Care Team Providers Care Buffer Chrome Name Role Phone Magdalena Acosta MD Primary Care Provider [phone] Encounter Details Date Type Department Care Team [...] EST Office Visit [place] [address] Markel Borjas MD [facility] [address] [place] [address] 11/02/2024 12:00 PM EDT Appoint[place] [phone] 11/02/2024 1:00 PM EDT Office [place] [address] Magdalena Peralta MD [facility] [place] [address] 03/01/2025 4:15 PM EDT Office Visit Dermatology at [place] [address] [place] [phone] Marek Bonilla MD [address], [place] [address] documented as of this encounter Visit Diagnoses Not on filedocumented in this encounter Care Teams Buffer Chrome Relationship Specialty Start Date End Date Magdalena Acosta MD [address] [place] [address] PCP - General Family Medicine 02/05/23 documented as of this encounter
--- OUTSIDE RECORDS SUMMARY | 2024-06-20 15:51 | XMS_ITS | Encounter Summary ---
Author Organization [place] [id number] Care Team Providers Care Conical Mixer Name Role Phone Magdalena Acosta MD Primary Care Provider [phone] Reason for Visit * Auth/Cert (Routine) Specialty Diagnoses / Procedures Referred By Contac t Referred To Contact Diagnoses Symptomatic severe aortic stenosis with low ejection fraction NSTEMI, CHF Haris Chua MD [facility] [place] [address] [facility] Referral ID Status Reason Start Date Expiration Date Visits Re quested Visits Authorized [id number] 1 1 Encounter Details Date Type Department Care Team (Late st Contact Info) Description 05/12/2023 7:35 AM EDT Anesthesia Event [place] [address] Lynda Mcgowan MD [facility] [place] [address] Alie Park MD [facility] [place] [address] Anesthesia Record Procedure Summary Procedure Name Responsible [...] cephalic vein (lateral side of arm), left; [id number] catheter system; Anatomical Landmarks; US Not Used; [...] RN LDA Cath/EP Sheath 05/12/23; 0733; 14 Georgian (Fr); Right; Femoral; Arterial 05/12/23 0733 by Guerda Bender, RN 05/12/23 0830 by Guerda Bender RN LDA Cath/EP Sheath 05/12/23; 0734; 6 Georgian (Fr); Right; Femoral; Venous 05/12/23 0734 by Guerda Bender RN 05/12/23 0817 by Guerda Bender RN LDA Cath/EP Sheath 05/12/23; 0734; 7 Georgian (Fr); Left; Femoral; Arterial 05/12/23 0734 by Guerda Bender, RN 05/12/23 0837 by Guerda Bender RN LDA Cath/EP Sheath 05/12/23; 0734; 6 Georgian (Fr); Left; Femoral; Venous 05/12/23 0734 by [...] Procedure Summary Date: 05/12/23 Room / Location: [employer] / [facility] Anesthesia Start: 734 Anesthesia Stop: [...] All Anesthesia Providers: Anesthesiologist: Lynda Mcgowan MD Hat Block Bench Hand: Nico Graham MD Vitals Value Taken Time [...] 5.6) performed by Nitesh Escobedo MD at [facility] ??? PRO AORTOPLAS FOR SUPRAVALV STEN N/A 09/21/2016 @AORTOPLASTY FOR SUPRAVALVULAR STENOSIS (WRVU 29.33) performed by Alirio Esparza MD at [facility] ??? PRO REPLACEMENT PROSTHETIC AORTIC VALVE OPEN W CARDIOPULMONARY BYPASS HOMOGRF/STENT N/A 09/21/2016 @REPLACE AORTIC VALVE, OPEN, W\CPB, W\PROSTHETIC VALVE (WRVU 41.32) performed by Alirio Esparza MD at [facility] Social History Tobacco Use ??? [...] 3 general, with a(n) intravenous induction Add-on [id number] TAVR. In cardiogenic shock. Has arterial line, [...] EST Office Visit Hematology [place] [address] Markel Borjas MD [facility] DR [place] [address] 11/02/2024 12:00 PM EDT Appointment [place] [phone] 11/02/2024 1:00 PM EDT Office [place] [address] Magdalena Peralta MD [facility] [place] [address] 03/01/2025 4:15 PM EDT Office Visit Dermatology at [address] [place] [phone] Marek Bonilla MD [address], [place] [address] documented as of this encounter Visit Diagnoses [...] mL/hr documented in this encounter Care Teams Conical Mixer Relationship Specialty Start Date End Date Magdalena Acosta MD [address] [place] [address] PCP - General Family Medicine 02/05/23 documented as of this encounter
--- OUTSIDE RECORDS SUMMARY | 2024-06-20 15:52 | XMS_ITS | Encounter Summary ---
Author Organization [facility] [place] [address] Care Team Providers Care Blood Bank Manager Name Role Phone Magdalena Acosta MD Primary Care Provider [phone] Reason for Referral * Consultation (Routine) - Closed Specialty Diagnoses / Procedures Referred By Contac t Referred To Contact Rheumatology Diagnoses Weakness Kyra Haas MD [facility] [address] [place] [address] [facility] [address] [place] [phone] Referral ID Status Reason Start Date Expiration Date V isits Requested Visits Authorized [id number] Closed Consult, Test & Treat PCP Updated and/or Approved 02/25/2023 02/25/2024 6 6 Encounter Details Date Type Department Care Team (Late st Contact Info) Description 02/25/2023 Transcribe Orders eDH Incoming Referrals [phone] Magdalena Acosta MD [address] [place] [address] Weakness Social History Tobacco Use [...] EST Office Visit Hematology and Oncology at [place] [phone] Markel Borjas MD [facility] DR HEMATOLOGY [place] [address] 11/02/2024 12:00 PM EDT [place] [address] 11/02/2024 1:00 PM EDT [place] [address] Magdalena Peralta MD [facility] [place] [address] 03/01/2025 4:15 PM EDT Office Visit Dermatology at [place] [address] [place] [phone] Marek Bonilla MD [address] [facility] [place] [address] Scheduled Referrals Name Type Priority Associated Diagnoses Order Schedule Referral to Rheumatology Outpatient Referral Routine Weakness Ordered: 02/25/2023 documented as of this encounter Visit Diagnoses Diagnosis Weakness Other malaise and fatigue documented in this encounter Care Teams Blood Bank Manager Relationship Specialty Start Date End Date Magdalena Acosta MD [address] [place] [address] PCP - General Family Medicine 02/05/23 documented as of this encounter
--- OUTSIDE RECORDS SUMMARY | 2024-06-20 15:52 | XMS_ITS | Encounter Summary ---
Author Organization [facility] [place] [address] Care Team Providers Care Delimer Name Role Phone Deborah Quiroga APRN Primary Care Provider [phone] Encounter Details Date Type Department Care Team (Latest Contact Info) Description 07/03/2022 12:28 PM EST - 07/03/2022 1:35 PM EST Hospital Encounter [place]ology [place] [address] Chronic idiopathic neutropenia Discharge Disposition: Home Social [...] EST Office Visit [place]ology [place] [phone] Markle Borjas MD [facility] DR H[place] [address] 11/02/2024 12:00 PM EDT [place]oint[place] [phone] 11/02/2024 1:00 PM EDT Office [place] [phone] Magdalena Peralta MD [facility] [place] [address] 03/01/2025 4:15 PM EDT Office Visit Dermatology at [place] [address] [facility] [place] [phone] Marek Bonilla MD [address] [place] [address] RD, [place] [address] documented as of this encounter Procedures Procedure [...] [facility] Lymph % 18.4 % [facility] Lymphocytes Abs 0.7(L) 0.9 - 3.2 x10(3)/mc L [facility] Monocyte % 8.4 % [facility] Monocyte Abs 0.3 0.3 - 0.9 x10(3)/mc L [facility] Eos % 0.0 % [facility] Eosinophils Abs 0.0 0.0 - 0.4 x10(3)/mc L [facility] Basophil % 0.3 % [facility] Baso [...] HEMATOLOGY ORDERAB LES [facility] [place] [address] * (ABNORMAL) Hemogram (07/03/2022 12:40 PM EST) [...] [facility] NRBC% auto 0.0 % [facility] NRBC Absolute 0.000 0.000 - 0.000 x10(3)/ L [facility] Blood 07/03/2022 12:4 0 PM EST 07/03/2022 1:03 PM EST Narrative Resulting Agency Comment Spec In Lab Markel Borjas MD HEMATOLOGY ORDERAB LES [facility] [place] [address] * (ABNORMAL) Comprehensive metabolic panel (non-fasting) (07/03/2022 [...] CHEMISTRY ORDERABL ES [facility] [place] [phone] documented in this encounter Visit Diagnoses Diagnosis Chronic idiopathic neutropenia Other neutropenia documented in this encounter Care Teams Delimer Relationship Specialty Start Date End Date Deborah Quiroga APRN PCP - General Family Medicine 03/24/16 02/04/23 documented as of this encounter
--- OUTSIDE RECORDS SUMMARY | 2024-06-20 15:52 | XMS_ITS | Encounter Summary ---
Author Organization [facility] [place] [address] Care Team Providers Care Special Collections Librarian Name Role Phone Magdalena Acosta MD Primary Care Provider [phone] Encounter Details Date Type Department Care Team (Late st Contact Info) Description 03/29/2023 Notes Only Cardiology at [address] [phone] Vahid Plasencia, RN Social History Tobacco Use [...] 82/51; Mild AR; Moderate MR; Trace TR [facility] 11/09/2022: Non obstructive CAD STS 4.1 Plan:Schedule SDM clinic, diagnostics and frailty assessment. documented in this encounter Plan of Treatment Upcoming Encounters Date Type Department Care Team (Late st Contact Info) Description 06/23/2024 2:00 PM EST Office Visit Hematology and Oncology at [place] [phone] Markel Borjas MD [facility] [address] [place] [address] 11/02/2024 12:00 PM EDT Appointment [place] [address] 11/02/2024 1:00 PM EDT Office Visit Rheumatology at [place] [address] Magdalena Peralta MD [facility] [place] [address] 03/01/2025 4:15 PM EDT Office Visit Dermatology at [address] [phone] Marek Bonilla MD [address] [facility] [address] documented as of this encounter Visit Diagnoses Not on filedocumented in this encounter Care Teams Special Collections Librarian Relationship Specialty Start Date End Date Magdalena Acosta MD [address] [place] [address] PCP - General Family Medicine 02/05/23 documented as of this encounter
--- OUTSIDE RECORDS SUMMARY | 2024-06-20 15:52 | XMS_ITS | Encounter Summary ---
Author Organization [facility] [place] [address] Care Team Providers Care Manager Customer Service Name Role Phone Magdalena Acosta MD Primary Care Provider [phone] Encounter Details Date Type Department Care Team (Latest Contact Info) Description 02/05/2023 9:33 PM EDT - 02/05/2023 11:59 PM EDT Hospital [place] [phone] Discharge Disposition: Home Social History Tobacco Use [...] Visit H[place] [phone] Markel Borjas MD [facility] [place] [address] 11/02/2024 12:00 PM EDT Appoint[place] [phone] 11/02/2024 1:00 PM EDT Office [place] [address] Magdalena Peralta MD [facility] [place] [address] 03/01/2025 4:15 PM EDT Office Visit Dermatology at [address] [place] [address] Marek Bonilla MD [address], [place] [address] documented as of this encounter Procedures Procedure Name Priority Date/Time Associated Diagnosis Comments SURGICAL PATHOLOGY REPORT Routine 02/05/2023 3:00 PM EDT documented in this encounter Results * Surgical Pathology Report (02/05/2023 3:00 PM EDT) Final Diagnosis [id number] ? Location: OPW The signing pathologist has (i) examined the relevant preparation(s) for the specimen(s) and (ii) rendered or confirmed the diagnosis(es). . ?Surgical Pathology DIAGNOSIS Left upper back, skin punch biopsy: - ??Compound dysplastic ??melanocytic nevus with moderate atypia, transected at peripheral specimen edges ?? (see discussion) Electronically signed by: ?Vanna CULP, Jesse Shields Verified: ??02/16/2023 8:04 ?? Dermatopathologist Performed at: ??-[facility] Dept. of [place]ology, [place] [address] Asset Protection Assistant: Kunal Rubi MD, FCAP, ??CLIA Certificate: [id number] DISCUSSION If there is an obvious clinical [...] labeled A1. ??sns 02/16/2023 8:04 AM EDT [facility] SPECIMEN FROM SKIN / Unknown 02/05/2023 3:00 PM EDT 02/05/2023 3:00 PM EDT Marek Bonilla MD PATHOLOGY/CYTOLOGY O R[facility]ABLES [facility] [place] [address] [facility] [place] [address] documented in this encounter Visit Diagnoses Not on filedocumented in this encounter Care Teams Manager Customer Service Relationship Specialty Start Date End Date Magdalena Acosta MD [address] [place] [address] PCP - General Family Medicine 02/05/23 documented as of this encounter
--- OUTSIDE RECORDS SUMMARY | 2024-06-20 15:52 | XMS_ITS | Encounter Summary ---
Author Organization [facility] Address [facility] [place] [address] Care Team Providers Care Director Of Research And Development Name Role Phone Magdalena Acosta MD Primary Care Provider [phone] Encounter Details Date Type Department Care Team (Late st Contact Info) Description 03/29/2023 Orders Only Cardiology at [address] [address] Ranjan Delgado MD [facility] [place] [place] [address] Severe aortic stenosis (Primary Dx) Social History [...] EST Office Visit Hematology [place] [address] Markel Borjas MD [facility] [address] HEMATOLOGY AND ONCOLOGY [place], [place] [phone] 11/02/2024 12:00 PM EDT Appointment [place] [address] 11/02/2024 1:00 PM EDT Office Visit [place] [address] Magdalena Peralta MD [facility] [place] [address] 03/01/2025 4:15 PM EDT Office Visit Dermatology at [place] [address] [facility] [place] [phone] Marek Bonilla MD [address], [place] [address] Scheduled Orders Name Type Priority Associated Diagnoses [...] in this encounter Care Teams Director Of Research And Development Relationship Specialty Start Date End Date Magdalena Acosta MD [address] [place] [address] PCP - General Family Medicine 02/05/23 documented as of this encounter
--- OUTSIDE RECORDS SUMMARY | 2024-06-20 15:52 | XMS_ITS | Encounter Summary ---
Author Organization [facility] [place] [address] Care Team Providers Care General Doc Name Role Phone Magdalena Acosta MD Primary Care Provider [phone] Encounter Details Date Type Department Care Team [...] Visit Hematology and Oncology at [place] [phone] Markel Borjas MD [facility] [address] HEMATOLOGY [place] [address] 11/02/2024 12:00 PM EDT Appointment [place] [address] 11/02/2024 1:00 PM EDT Office Visit [place] [address] Magdalena Peralta MD [facility] DR [place] [address] 03/01/2025 4:15 PM EDT Office Visit Dermatology at [place] [address] [place] [phone] Marek Bonilla MD [address], [place] [address] documented as of this encounter Visit Diagnoses Not on filedocumented in this encounter Care Teams General Doc Relationship Specialty Start Date End Date Magdalena Acosta MD [address] [place] [address] PCP - General Family Medicine 02/05/23 documented as of this encounter
--- OUTSIDE RECORDS SUMMARY | 2024-06-20 15:52 | XMS_ITS | Encounter Summary ---
[place] [address] Care Team Providers Care Crm Marketing Analyst Name Role Phone Magdalena Acosta MD Primary Care Provider [phone] Reason for Visit * Reason Comments Suture / Staple Removal Encounter Details Date Type Department Care Team (Late st Contact Info) Description 02/16/2023 10:00 AM EDT Office Visit Dermatology at [place] [address] [facility] [place] [phone] Marek Bonilla MD [address] [facility], [place] A DERMATOLOGY [place], [place] [phone] Visit for suture removal Social History Tobacco [...] EST Office Visit [place]ology [place] [address] Markel Borjas MD [facility] [address] HEMATOLOGY [place] [address] 11/02/2024 12:00 PM EDT [place] [address] 11/02/2024 1:00 PM EDT Office [place] [address] Magdalena Peralta MD [facility] [place] [address] 03/01/2025 4:15 PM EDT Office Visit Dermatology at [address] [place] [phone] Marek Bonilla MD [address], [place] [address] documented as of this encounter Visit Diagnoses Diagnosis Visit for suture removal Encounter for removal of sutures documented in this encounter Care Teams Crm Marketing Analyst Relationship Specialty Start Date End Date Magdalena Acosta MD [address] [place] [address] PCP - General Family Medicine 02/05/23 documented as of this encounter
--- OUTSIDE RECORDS SUMMARY | 2024-06-20 15:52 | XMS_ITS | Encounter Summary ---
Author Organization [facility] Address [facility] [place] [address] Care Team Providers Care Child Development Specialist Name Role Phone Ashley Quirogan [place] ANURAG Primary Care Provider [phone] Encounter Details Date Type Department Care Team (Late st Contact Info) Description 01/14/2023 Refill Dermatology at [address] [address] Lupe Connor RN Social History [...] She would like the medication called into [facility] in [facility]. Discussed with Dr. Bonilla and he has approved refill of the Doxycycline 50 mg take one capsule by mouth daily in the evenings dispense 30 capsules with 2 refills. Patient notified. documented in this encounter Plan of Treatment Upcoming Encounters Date Type Department Care Team (Late st Contact Info) Description 06/23/2024 2:00 PM EST Office Visit Hematology and Oncology at [place] [phone] Markel Borjas MD [facility] [address] HEMATOLOGY [place] [address] 11/02/2024 12:00 PM EDT Appointment [place] [address] 11/02/2024 1:00 PM EDT Office [place] [address] Magdalena Peralta MD [facility] [place] [address] 03/01/2025 4:15 PM EDT Office Visit Dermatology at [place] [address] [facility] [place] [address] Marek Bonilla MD [address], [place] A DERMATOLOGY [place], [place] [address] documented as of this encounter Visit Diagnoses Not on filedocumented in this encounter Care Teams Child Development Specialist Relationship Specialty Start Date End Date Deborah Quiroga APRN PCP - General Family Medicine 03/24/16 02/04/23 documented as of this encounter
--- OUTSIDE RECORDS SUMMARY | 2024-06-20 15:52 | XMS_ITS | Encounter Summary ---
Author Organization [facility] [place] [address] Care Team Providers Care Head Transfer Clerk Name Role Phone Magdalena Acosta MD Primary Care Provider [phone] Encounter Details Date Type Department Care Team (Latest Contact Info) Description 03/18/2023 2:30 PM EDT Laboratory Appointment Lab [place] [address] Positive FRANCISCO (antinuclear antibody) Social [...] EST Office Visit [place] [address] Markel Borjas MD [facility] [address] HEMATOLOGY [place] [address] 11/02/2024 12:00 PM EDT [place] [address] 11/02/2024 1:00 PM EDT Office [place] [address] Magdalena Peralta MD [facility] [place] [address] 03/01/2025 4:15 PM EDT Office Visit Dermatology at [place] [address] [place] [address] Marek Bonilla MD [address], [place] [address] documented as of this encounter Procedures Procedure [...] 2:14 PM EDT) Neutrophil % 71.2 % [facility] Neutrophil Absolute 2.26 1.70 - 6.10 x10(3)/mc L [facility] Lymph % 18.2 % [facility] Lymphocytes Abs 0.6(L) 0.9 - 3.2 x10(3)/mc L [facility] Monocyte % 9.7 % [facility] Monocyte Abs 0.3 0.3 - 0.9 x10(3)/ L [facility] Eos % 0.3 % [facility] Eosinophils Abs 0.0 0.0 - 0.4 x10(3)/mc L [facility] Basophil % 0.6 % [facility] Baso Absolute 0.0 0.0 - 0.1 x10(3)/mc L [facility] Immature Gran % 0.00 % [facility] Comment: Immature granulocytes(IG's)percentage and absolute count will include metamyelocytes, myelocytes, and promyelocytes. Blood smears from CBCs yielding IG's will be scanned manually for concordance. If this scan disagrees with the automated IG or if promyelocytes are noted, a manual differential will be performed. Immature Gran Absolute 0.00 0.00 - 0.04 x10(3)/mc L [facility] Blood 03/18/2023 2:14 PM EDT 03/18/2023 2:24 PM EDT Narrative Resulting Agency Comment Spec In Lab Magdalena Peralta MD HEMATOLOGY ORDERABLE S [facility] [place] [address] * (ABNORMAL) Hemogram (03/18/2023 2:14 PM EDT) White Blood Cell 3.2(L) 4.0 - 9.5 x10(3)/mc L [facility] Red Blood Cell 3.44(L) 4.00 - 5.21 x10(6)/mc L [facility] Hemoglobin 11.1(L) 11.7 - 15.5 g/dL [facility] Hematocrit 32.9(L) 35.7 - 45.8 % [facility] Mean Cell Volume 95.6(H) 82.6 - 94.[address] [facility] Mean Cell Hemoglobin 32.3(H) 27.1 - 32.[address] [facility] Mean Cell Hemoglobin Concentration 33.7 31.7 - 35.0 g/dL [facility] Platelet 144(L) 145 - 357 x10(3)/mc L [facility] RDW Standard Deviation 42.6 37.0 - 46.[address] [facility] RDW coefficient of variation 12.3 11.5 - 14.1 % [facility] Mean Platelet Volume 9.4 7.6 - 12.[address] [facility] NRBC% auto 0.0 % [facility] NRBC Absolute 0.000 0.000 - 0.000 x10(3)/mc L [facility] Blood 03/18/2023 2:14 PM EDT 03/18/2023 2:24 PM EDT Narrative Resulting Agency Comment Spec In Lab Magdalena Peralta MD HEMATOLOGY ORDERABLE S Performing Organization Address City/[facility] Co de Phone Number [facility] [place] [address] * (ABNORMAL) Sedimentation rate (03/18/2023 2:14 PM EDT) Sedimentation Rate Automated 68(H) 2 - 39 mm/hr [facility] Comment: Effective July 12, 2019 new capillary photometric technology has resulted in a change in reference ranges. It is recommended that each ESR result be reviewed with its own age appropriate reference range. Blood 03/18/2023 2:14 PM EDT 03/18/2023 2:24 PM EDT Narrative Resulting Agency Comment Spec In Lab Kia Viramontes DO HEMATOLOGY ORDERAB LES Performing Organization Address City/[facility]/ZIP Co de Phone Number [facility] [place] [address] * CRP, acute inflammation (03/18/2023 2:14 PM EDT) C-Reactive Protein 3.0 <=4.9 mg/L [facility] Blood 03/18/2023 2:14 PM EDT 03/18/2023 2:24 PM EDT Narrative Resulting Agency Comment Spec In Lab Kia D Wander DO CHEMISTRY ORDERABL ES Performing Organization Address City/[facility]/ZIP Co de Phone Number [facility] [place] [address] * C3 Complement (03/18/2023 2:14 PM EDT) Complement C3 142 90 - 180 mg/dL [facility] Blood 03/18/2023 2:14 PM EDT 03/18/2023 2:24 PM EDT Narrative Resulting Agency Comment Spec In Lab Kia D Wander DO CHEMISTRY ORDERABL ES Performing Organization Address City/[facility]/ZIP Co de Phone Number [facility] [place] [address] * C4 Complement (03/18/2023 2:14 PM EDT) Complement C4 30 10 - 40 mg/dL [facility] Blood 03/18/2023 2:14 PM EDT 03/18/2023 2:24 PM EDT Narrative Resulting Agency Comment Spec In Lab Kia D Wander DO CHEMISTRY ORDERABL ES Performing Organization Address City/[facility]/ZIP Co de Phone Number [facility] [place] [address] * CK (03/18/2023 2:14 PM EDT) Creatine Kinase 38 0 - 160 unit/L [facility] Blood 03/18/2023 2:14 PM EDT 03/18/2023 2:24 PM EDT Narrative Resulting Agency Comment Spec In Lab Kia Viramontes DO CHEMISTRY ORDERABL ES Performing Organization Address City/[facility]/ZIP Co de Phone Number [facility] [place] [address] * DNA Antibody (Double-Stranded) (03/18/2023 2:14 PM EDT) dsDNA Ab <0.6 <=15.0 IU/mL [facility] Comment: <10 negative 10-15 equivocal >15 positive This dsDNA antibody result was generated using a fluoroenzyme immunoassay on the Unight 250 analyzer. This quantitative test is designed to detect IgG antibodies directed against double stranded DNA in human serum. The presence of antibodies that recognize dsDNA is a highly specific marker for systemic lupus erythematosus. Please note that as of 05/26/2022 that this testing is performed by the Special Chemistry Laboratory at [facility]. This change in testing location is associated with a change is testing method and reference intervals. Please review the results of this test in association with the posted reference intervals. Blood 03/18/2023 2:14 PM EDT 03/19/2023 7:19 AM EDT Narrative Resulting Agency Comment Spec In Lab Kia Viramontes DO LAB SEND OUT ORDER JODIE Performing Organization Address [facility] Co de Phone Number [facility] [place] [address] * (ABNORMAL) FRANCISCO Ab by IFA (03/18/2023 2:14 PM EDT) FRANCISCO Ab Screen Test ? Result ?Flag ??Unit ??RefValue Antinuclear Ab, HEp-2 ?Positive 1:2560 ??@ ?<1:80 (Negative) ??Substrate, S ? ADDITIONAL INFORMATION --------- ?Method: Immunofluorescence using HEp-2 cellular substrate. ??FRANCISCO Titer: ? 1:2560 ??FRANCISCO Pattern: ? Speckled ?Test Performed by: ?[facility] ?[address] [place] [address] ?Beet End Supervisor: Raymond Chaudhry M.D. Ph.D.; CLIA# [id number] ([id number]) [facility] Blood 03/18/2023 2:14 PM EDT 03/18/2023 3:02 PM EDT Narrative Resulting Agency Comment Spec In Lab Kia Viramontes DO CHEMISTRY ORDERABL ES [facility] [place] [address] * Comprehensive metabolic panel (non-fasting) (03/18/2023 2:14 PM EDT) Glucose 93 65 - 199 mg/dL [facility] Comment:Diabetes: >=200 mg/d L plus symptoms Blood Urea Nitrogen 18 8 - 18 mg/dL [facility] Creatinine 0.99 0.70 - 1.20 mg/dL [facility] Sodium 141 135 - 145 mmol/L [facility] Potassium 4.5 3.5 - 5.0 mmol/L [facility] Comment: Please note: ??Patients with WBC >100,000 may have falsely elevated Potassium levels. ??For accurate Potassium quantification in these patients send serum separator tube (gold top) for subsequent determinations. ??Contact the Clinical Chemistry Laboratory if there are any questions. Chloride 106 98 - 107 mmol/L [facility] Carbon Dioxide 24 22 - 31 mmol/L [facility] Anion Gap 11 5 - 15 mmol/L [facility] Calcium 10.0 8.5 - 10.5 mg/dL [facility] Protein, Total 7.3 6.1 - 8.0 g/dL [facility] Albumin 4.3 3.2 - 5.2 g/dL [facility] Aspartate Aminotransferase 26 0 - 30 unit/L [facility] Alanine Aminotransferase 11 0 - 30 unit/L [facility] Alkaline Phosphatase 91 35 - 105 unit/L [facility] Bilirubin, Total 0.4 0.2 - 1.3 mg/dL [facility] Est Glomerular Filtration Rate 62 >=60 mL/min/1. 73 m?? [facility] Comment: This patient's estimated GFR [...] DO CHEMISTRY ORDERABL ES Performing Organization Address City/State/[facility] Co de Phone Number [facility] [place] [address] documented in this encounter Visit Diagnoses Diagnosis Positive FRANCISCO (antinuclear antibody) Other and unspecified nonspecific immunological findings documented in this encounter Care Teams Head Transfer Clerk Relationship Specialty Start Date End Date Magdalena Acosta MD [address] [place] [address] PCP - General Family Medicine 02/05/23 documented as of this encounter
--- OUTSIDE RECORDS SUMMARY | 2024-06-20 15:52 | XMS_ITS | Encounter Summary ---
Author Organization [facility] [place] [address] Care Team Providers Care Optimization Engineer Name Role Phone Magdalena Acosta MD Primary Care Provider [phone] Encounter Details Date Type Department Care Team (Late st Contact Info) Description 02/17/2023 2:00 PM EDT Office [place] [address] Alirio Esparza MD Aortic valve stenosis, etiology [...] EST Office Visit Hematology and Oncology at [place] [phone] Markel Borjas MD [facility] DR HEMATOLOGY [place] [address] 11/02/2024 12:00 PM EDT Appointment Pulmonology at [place] [address] 11/02/2024 1:00 PM EDT Office Visit Rheumatology at [place] [phone] Magdalena Peralta MD [facility] [place] [address] 03/01/2025 4:15 PM EDT Office Visit Dermatology at [address] [place] [address] Marek Bonilla MD [address], [place] [address] documented as of this encounter Visit Diagnoses Diagnosis Aortic valve stenosis, etiology of cardiac valve disease unspecified documented in this encounter Care Teams Optimization Engineer Relationship Specialty Start Date End Date Magdalena Acosta MD [address] [place] [address] PCP - General Family Medicine 02/05/23 documented as of this encounter
--- OUTSIDE RECORDS SUMMARY | 2024-06-20 15:52 | XMS_ITS | Encounter Summary ---
Author Organization [facility] [place] [address] Care Team Providers Care Dipping Machine Operator Name Role Phone Magdalena Acosta MD Primary Care Provider [phone] Encounter Details Date Type Department Care Team [...] EST Office Visit Hematology and Oncology at [place] [phone] Markel Borjas MD [facility] [address] [place] [address] 11/02/2024 12:00 PM EDT Appointment [place] [address] 11/02/2024 1:00 PM EDT Office [place] [address] Magdalena Peralta MD [facility] [place] [address] 03/01/2025 4:15 PM EDT Office Visit Dermatology at [place] [address] [place] [address] Marek Bonilla MD [address] [place] [address] documented as of this encounter Visit Diagnoses Not on filedocumented in this encounter Care Teams Dipping Machine Operator Relationship Specialty Start Date End Date Magdalena Acosta MD [address] [place] [address] PCP - General Family Medicine 02/05/23 documented as of this encounter
--- OUTSIDE RECORDS SUMMARY | 2024-06-20 15:52 | XMS_ITS | Encounter Summary ---
Author Organization [facility] Erika [facility] [place] [address] Care Team Providers Care Power System Electrical Engineer Name Role Phone Magdalena Acosta MD Primary Care Provider [phone] Encounter Details Date Type Department Care Team [...] EST Office Visit Hematology and Oncology at [place] [phone] Markel Borjas MD [facility] DR HEMATOLOGY [place] [address] 11/02/2024 12:00 PM EDT Appointment [place] [address] 11/02/2024 1:00 PM EDT Office [place] [address] Magdalena Peralta MD [facility] [place] [address] 03/01/2025 4:15 PM EDT Office Visit Dermatology at [place] [address] [place] [address] Marek Bonilla MD [address] [place] [address] documented as of this encounter Visit Diagnoses Not on filedocumented in this encounter Care Teams Power System Electrical Engineer Relationship Specialty Start Date End Date Magdalena Acosta MD [address] [place] [address] PCP - General Family Medicine 02/05/23 documented as of this encounter
--- OUTSIDE RECORDS SUMMARY | 2024-06-20 15:52 | XMS_ITS | Encounter Summary ---
Author Organization [facility] [place] [address] Care Team Providers Care Vfx Artist Name Role Phone JunaidAshley hargrovezac Shields APRN Primary Care Provider [phone] Encounter Details Date Type Department Care Team (Late st Contact Info) Description 11/02/2022 Orders Only Assistant [place] [address] Emily Lyons PA [facility] CARDIOLOGY [place], [place] [phone] Aortic valve stenosis, etiology of cardiac valve [...] EST Office Visit Hematology [place] [address] Markel Borjas MD [facility] HEMATOLOGY AND ONCOLOGY [place], [place] [id number] 11/02/2024 12:00 PM EDT Appointment [place] [address] 11/02/2024 1:00 PM EDT Office [place] [address] Magdalena Peralta MD [facility] [place] [address] 03/01/2025 4:15 PM EDT Office Visit Dermatology at [place] [address] [facility] [place] [phone] Marek oBnilla MD [address] [facility] [place] [address] documented as of this encounter Visit Diagnoses Diagnosis Aortic valve stenosis, etiology of cardiac valve disease unspecified documented in this encounter Care Teams Vfx Artist Relationship Specialty Start Date End Date Deborah Quiroga APRN PCP - General Family Medicine 03/24/16 02/04/23 documented as of this encounter
--- OUTSIDE RECORDS SUMMARY | 2024-06-20 15:52 | XMS_ITS | Encounter Summary ---
Author Organization [facility] Address [facility] [place] [address] Care Team Providers Care Outbound Telemarketing Representative Name Role Phone Magdalena Acosta MD Primary Care Provider [phone] Reason for Visit * Consultation (Routine) - Closed Specialty Diagnoses / Procedures Referred By Contac t Referred To Contact Rheumatology Diagnoses Weakness Kyra Haas MD [facility] [address] [place] [address] [facility] [place] Rheumatology [address] [place] [phone] Referral ID Status Reason Start Date Expiration Date V isits Requested Visits Authorized [id number] Closed Consult, Test & Treat PCP Updated and/or Approved 02/25/2023 02/25/2024 6 6 Encounter Details Date Type Department Care Team (Late st Contact Info) Description 03/18/2023 1:00 PM EDT Office [place] [address] Kia Viramontes, [facility] [place] [address] Magdalena Peralta MD [facility] [place] [address] Positive FRANCISCO (antinuclear antibody) Social [...] 1:5120 speckled VIC negative Myositis panel with BRAKE REPAIRER AIR ab 149.1 (positive) Anti U1RNP IgG 119 [...] a chair without assistance of upper extremities. Fire Claims Adjuster strength 3+/5 bilaterally; otherwise large muscle [...] due to risk of retinal toxicity with alf Plaquenil use, which she already does. Recommendations: #mixed connective tissue disease Start hydroxychloroquine 200 mg qd Labs today: repeat FRANCISCO, dsDNA, complements, CBC, CMP, CK, ESR, CRP Follow up 1 month The patient was seen and discussed with Dr. Wander Peralta MD Rheumatology Fellow Pager: [phone] CC: Kyra Haas * Kia Viramontes DO [...] Visit Hematology [place] [phone] Markel Borjas MD [facility] [address] [place] [address] 11/02/2024 12:00 PM EDT Appointment [place] [address] 11/02/2024 1:00 PM EDT Office [place] [phone] Magdalena Peralta MD [facility] [place] [address] 03/01/2025 4:15 PM EDT Office Visit Dermatology at [address] [place] [phone] Marek Bonilla MD [address] [facility] [place] A DERMATOLOGY [place], [place] [phone] documented as of this encounter Results * Comprehensive metabolic panel (non-fasting) (03/18/2023 2:14 PM EDT) Glucose 93 65 - 199 mg/dL [facility] Comment:Diabetes: >=200 mg/d L plus symptoms Blood Urea Nitrogen 18 8 - 18 mg/dL [facility] Creatinine 0.99 0.70 - 1.20 mg/dL [facility] Sodium 141 135 - 145 mmol/L [facility] Potassium 4.5 3.5 - 5.0 mmol/L [facility] Comment: Please note: ??Patients with WBC >100,000 may have falsely elevated Potassium levels. ??For accurate Potassium quantification in these patients send serum separator tube (gold top) for subsequent determinations. ??Contact the Clinical Chemistry Laboratory if there are any questions. Chloride 106 98 - 107 mmol/L [facility] Carbon Dioxide 24 22 - 31 mmol/L [facility] Anion Gap 11 5 - 15 mmol/L [facility] Calcium 10.0 8.5 - 10.5 mg/dL [facility] Protein, Total 7.3 6.1 - 8.0 g/dL [facility] Albumin 4.3 3.2 - 5.2 g/dL [facility] Aspartate Aminotransferase 26 0 - 30 unit/L [facility] Alanine Aminotransferase 11 0 - 30 unit/L [facility] Alkaline Phosphatase 91 35 - 105 unit/L [facility] Bilirubin, Total 0.4 0.2 - 1.3 mg/dL [facility] Est Glomerular Filtration Rate 62 >=60 mL/min/1. 73 m?? [facility] Comment: This patient's estimated GFR was [...] Lab Kia Viramontes DO CHEMISTRY ORDERABL ES [facility] [place] [address] * (ABNORMAL) FRANCISCO Ab by IFA (03/18/2023 2:14 PM EDT) FRANCISCO Ab Screen Test ? Result ?Flag ??Unit ??RefValue Antinuclear Ab, HEp-2 ?Positive 1:2560 ??@ ?<1:80 (Negative) ??Substrate, S ? ADDITIONAL INFORMATION --------- ?Method: Immunofluorescence using HEp-2 cellular substrate. ??FRANCISCO Titer: ? 1:2560 ??FRANCISCO Pattern: ? Speckled ?Test Performed by: ?[facility] ?[address] [id number] ?Rubber Stamp Assembler: Raymond Chaudhry M.D. Ph.D.; CLIA# [id number] ([id number]) [facility] Blood 03/18/2023 2:14 PM EDT 03/18/2023 3:02 PM EDT Narrative Resulting Agency Comment Spec In Lab Kia Viramontes DO CHEMISTRY ORDERABL ES [facility] [place] [address] * DNA Antibody (Double-Stranded) (03/18/2023 2:14 PM EDT) dsDNA Ab <0.6 <=15.0 IU/mL [facility] Comment: <10 negative 10-15 equivocal >15 positive This dsDNA antibody result was generated using a fluoroenzyme immunoassay on the [employer] 250 analyzer. This quantitative test is designed [...] SEND OUT ORDER JODIE Performing Organization Address City/[facility] Co de Phone Number [facility] [place] [place] [address] * CK (03/18/2023 2:14 PM EDT) Creatine Kinase 38 0 - 160 unit/L [facility] Blood 03/18/2023 2:14 PM EDT 03/18/2023 2:24 PM EDT Narrative Resulting Agency Comment Spec In Lab Kia Viramontes DO CHEMISTRY ORDERABL ES Performing Organization Address [facility] Co de Phone Number [facility] [place] [address] * C4 Complement (03/18/2023 2:14 PM EDT) Complement C4 30 10 - 40 mg/dL [facility] Blood 03/18/2023 2:14 PM EDT 03/18/2023 2:24 PM EDT Narrative Resulting Agency Comment Spec In Lab Kia Viramontes DO CHEMISTRY ORDERABL ES Performing Organization Address [facility] Co de Phone Number [facility] [place] [address] * C3 Complement (03/18/2023 2:14 PM EDT) Complement C3 142 90 - 180 mg/dL [facility] Blood 03/18/2023 2:14 PM EDT 03/18/2023 2:24 PM EDT Narrative Resulting Agency Comment Spec In Lab Kia Viramontes DO CHEMISTRY ORDERABL ES Performing Organization Address [facility] Co de Phone Number [facility] [place] [place] [address] * CRP, acute inflammation (03/18/2023 2:14 PM EDT) C-Reactive Protein 3.0 <=4.9 mg/L [facility] Blood 03/18/2023 2:14 PM EDT 03/18/2023 2:24 PM EDT Narrative Resulting Agency Comment Spec In Lab Kia Viramontes DO CHEMISTRY ORDERABL ES Performing Organization Address [facility] Co de Phone Number [facility] [place] [address] * (ABNORMAL) Sedimentation rate (03/18/2023 2:14 PM EDT) Sedimentation Rate Automated 68(H) 2 - 39 mm/hr [facility] Comment: Effective July 12, 2019 new capillary photometric technology has resulted in a change in reference ranges. It is recommended that each ESR result be reviewed with its own age appropriate reference range. Blood 03/18/2023 2:14 PM EDT 03/18/2023 2:24 PM EDT Narrative Resulting Agency Comment Spec In Lab Kia Viramontes DO HEMATOLOGY ORDERAB LES Performing Organization Address [facility] Co de Phone Number [facility] [place] [address] documented in this encounter Visit Diagnoses Diagnosis Positive FRANCISCO (antinuclear antibody) Other and unspecified nonspecific immunological findings documented in this encounter Care Teams Outbound Telemarketing Representative Relationship Specialty Start Date End Date Magdalena Acosta MD [address] [place] [address] PCP - General Family Medicine 02/05/23 documented as of this encounter
--- OUTSIDE RECORDS SUMMARY | 2024-06-20 15:52 | XMS_ITS | Encounter Summary ---
[facility] Organization [facility] [place] [address] Care Team Providers Care Burning Plant Operator Name Role Phone Magdalena Acosta MD Primary Care Provider [phone] Reason for Visit * Auth/Cert (Routine) Specialty Diagnoses / Procedures Referred By Contac t Referred To Contact Diagnoses Symptomatic severe aortic stenosis with low ejection fraction NSTEMI, CHF Enrique Chua MD [facility] [place] [address] [facility] Referral ID Status Reason Start Date Expiration Date Visits Re quested Visits Authorized [id number] 1 1 Encounter Details Date Type Department Care Team (Late st Contact Info) Description 05/12/2023 2:50 PM EDT - 05/12/2023 3:50 PM EDT Surgery [place] [address] Antelmo Sharma MD [facility] [place] [address] CARDIAC CATHETERIZATION Social History Tobacco Use Types [...] Patient Age: 67 y.o. Birthdate: 1955 Language: Kuwaiti Race: White Ethnicity: Not nor Admit Date: 05/08/2023 Discharge Date: 05/22/2023 Attending Physician: Alirio Hudson MD Follow-up Recommendations for Providers: Please continue routine management of cardiovascular risk factors including blood pressure, lipids,glucose, etc. Please note any medication changes. Patient to follow up with PCP, Magdalena Acosta MD, or Primary Toxicologist, Avis Mejia MD, in ~ 7-10 days. Patient to follow up with Computer Repair Technician, Dr. Antelmo Sharma, in 2 weeks with an EKG, Echo, CBC, and CMP. Patient to follow up with Nephrology, their office to arrange. Kbdh-Mwvaqy-bv interval: After initial 30 day follow-up appointment , all TAVR patients will follow-up again in one year with an echo. 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 Left coronary protection with left main MINNA. Hospital Course: #Severe prosthetic s/p valve in valve TF TAVR #Low coronary heights s/p left main stent for coronary protection #Type 2 NSTEMI, present on arrival, resolved #Acute decompensated HFrEF #Cardiogenic shock #EVANS / Cardiorenal syndrome Purnima Thacker was admitted to [facility] on 05/08/2023 via the Cardiology Service [...] she was brought to the clinical laboratory aide the following morning where Drs. Alirio Hudson [...] you have questions. Please call your Computer Repair Technician's office if you have any discharge or drainage from your procedural sites. Your Computer Repair Technician, Dr. Antelmo Sharma and/or the Optical Effects Layout Person may be reached at . Antibiotic prophylaxis: You will need to take antibiotics prior to many invasive tests and treatments, such as dental cleaning, which should be done every 6 months. Your primary care physician or your dentist can prescribe this medication. Please refer to the card with the [place] [employer] Guidelines for more information. You have been provided with a copy of this card. Please refer to the [place] [employer] Guidelines for more information. Good [...] should resume a low fat, low cholesterol, [place] [employer] Diet Driving: No restrictions. Shower/Bath: You may shower daily. No baths, soaking, or swimming for the first week. Wound care: Wash the sites daily with soap and rinse well, pat dry. Assess for any signs of infection such as increased redness, pain, warmth or drainage. Please call your photonics engineer's office if you have any discharge or drainage from your procedural sites. If there is a lot of swelling, apply mamta wraps during the day and remove at bedtime. Elevate your legs when you are sitting. Home oxygen therapy: N/A Follow up appointments: Please schedule a follow-up appointment with your PCP, Magdalena Acosta MD, or Primary Toxicologist in ~ 7-10 days. You have a follow-up appointment with your Computer Repair Technician, Dr. Antelmo Sharma, in 2 weeks with an EKG, Echo, and labs prior to your appointment. You will need follow-up with Nephrology, their office will arrange. Rrcn-Cefjcx-fv interval: After initial 30 day follow-up appointment [...] 11:00 AM Magdalena Peralta MD Rheumatology at [facility] Arrive at: Staff Software Engineer Area [phone] 02/11/2024 2:00 PM Marek Bonilla MD Dermatology at [place] Arrive at: [facility] [address] [phone] Future Orders Complete By Expires Type and Screen Future Surgery, [facility] SAME DAY PROGRAM ONLY) [IMA6013 Custom] 05/11/2023 Process Instructions: This test is intended ONLY for patients with upcoming surgery for testing prior to the day of surgery obtained through the same day program (4V or SDP). For ALL OTHER PATIENTS, order a Type and Screen (PYF050) This order includes the physician order for an ABO Recheck if requested by the Blood Bank. Scheduling Instructions: Comments: Questions: Date of surgery: CBC (with Diff) [YGO443 Custom] 06/05/2023 12/05/2023 Process Instructions: INCLUDES: WBC, RBC, Hgb, Hct, Platelets, RBC Indices and Differential Scheduling Instructions: Comments: Questions: Comprehensive metabolic panel (non-fasting) [LAB17 Custom] 06/05/2023 08/20/2023 Process Instructions: INCLUDES: Calcium, T Protein, Albumin, AST, ALT, Alk Phos, T Bili, BUN, Creat, GFR, Glucose, Lytes. Scheduling Instructions: Comments: Questions: Echocardiogram Transthoracic [36464 CPT(R)] 06/05/2023 12/05/2023 Process Instructions: Scheduling Instructions: Questions: Where will study be performed?: [facility] Clinics Does the patient have Congenital Heart Disease?: Does patient require sedation?: GA rationale: EKG 12 Lead [59387 CPT(R)] 06/05/2023 12/05/2023 Process Instructions: Scheduling Instructions: Questions: Which location will this be performed?: [place] Is a rhythm strip needed?: No [facility] Devices [EQ161 Custom] As directed Process Instructions: Scheduling Instructions: Questions: Device Needed: WALKER (E0143) Patient Height (cm): 154.9 cm (5' 0.98) Patient Weight: 75.4 kg (166 lb 3.2 oz) Diagnosis: Unsteady gait when walking Referral to Cardiac Rehab [PWH497 Custom] As directed Process Instructions: If no [...] FOR VNA SERVICES PATIENT'S LOCATION: Purnima Thacker [address] [place] [phone] (home) Health Records Technology Teacher's Name: Irineo and brother Raymond In discussion with the attending physician, it is certified that this patient is under his/her careand that MD, or an SAMPLE WEAVER, MEDICAL CONSULTANT, or PA who is working directly with him/her, had a uznh-np-pgtz encounter that meets the physician lfjb-ww-rjda encounter requirements with this patient on 05/22/2023. [...] for managing ADLs. HOME HEALTH CARE AGENCY: [facility]. [address] [facility] [address] PHONE: [phone] FAX: [phone] Start of care: Ideally 24-48 hours after [...] patient's PCP: Magdalena Acosta MD [address] [facility] / [facility] [phone] All VNA agencies which cover the area of patient's residence have been reviewed, either verbally joao writing, and patient has chosen the home health care agency noted. Questions: Disciplines Requested: Physical Therapy Occupational Therapy Discharge References/Attachments None Arrangements for VNA/home care: As above. (delete if no VNA) Signed: EKATERINA NAVARRETE [facility] Section of Cardiac Surgery Date: 05/22/2023 CC: Magdalena Acosta MD WyndhamMario Alberto maxwell MD [address] [place] [address] [place] [address] documented in this encounter Discharge Instructions * Patient Instructions* Vinod Juárez PA - 05/22/2023 9:32 AM EDT TAVR Discharge Instructions: Call your doctor if: You have a fever of greater than 101 degrees, shaking chills, if you develop redness or drainage from your procedure sites, or if you have questions. Please call your Computer Repair Technician's office if you have any discharge or drainage from your procedural sites. Your Computer Repair Technician, Dr. Antelmo Sharma and/or the Optical Effects Layout Person may be reached at . Antibiotic prophylaxis: You will need to take antibiotics prior to many invasive tests and treatments, such as dental cleaning, which should be done every 6 months. Your primary care physician or your dentist can prescribe this medication. Please refer to the card with the [place] [employer] Guidelines for more information. You have been provided with a copy of this card. Please refer to the [place] [employer] Guidelines for more information. Good [...] should resume a low fat, low cholesterol, [place] [employer] Diet Driving: No restrictions. Shower/Bath: You may shower daily. No baths, soaking, or swimming for the first week. Wound care: Wash the sites daily with soap and rinse well, pat dry. Assess for any signs of infection such as increased redness, pain, warmth or drainage. Please call your photonics engineer's office if you have any discharge or drainage from your procedural sites. If there is a lot of swelling, apply mamta wraps during the day and remove at bedtime. Elevate your legs when you are sitting. Home oxygen therapy: N/A Follow up appointments: Please schedule a follow-up appointment with your PCP, Magdalena Acosta MD, or Primary Toxicologist in ~ 7-10 days. You have a follow-up appointment with your Computer Repair Technician, Dr. Antelmo Sharma, in 2 weeks with an EKG, Echo, and labs prior to your appointment. You will need follow-up with Nephrology, their office will arrange. Bnmi-Esnafi-ox interval: After initial 30 day follow-up appointment [...] ins ( tef) Haven Ba, PT Pager: [phone] Physical Therapy Inpatient Rehabilitation Department * Nico [...] 0600 and on the weekends please page [phone]. * Jory Paniagua - 05/20/2023 3:52 PM [...] vomiting Last Bowel Movement: 05/20/23 Jory Paniagua Sign Manufacturer * Tong Mike, OT - 05/20/2023 3:16 [...] three steps to enter. DME: none used [employer] Baseline ADL/Mobility: Independent with ADLs and IADLs. [...] WFL Vision & Perception: corrective lenses realtime reporter Communication: WFL Range of motion, strength, [...] has been seen for occupational therapy evaluation. Purnmiakary Thacker presents with the following performance skill [...] Discharge planning. Total Minutes, Occupational Therapy: 28 ([id number]) OT Evaluation Code Rationale: Diagnosis & Pertinent Co-Morbidities affecting Plan of Care: see PMHx Occupational Profile & Client History: Brief Expanded Extensive x Assessment of Occupational Performance: 1-3 performance deficits 3-5 performance deficits x 5 + performance deficits Clinical Decision Making: Low Moderate High x Clinical decision making of moderate complexity using standardized patient assessment instrument and measurable assessment of functional outcome. Pager: [phone] TONG MIKE OT 05/20/2023 Occupational Therapy Rehabilitation [...] 0600 and on the weekends please page [phone]. * Rylie Rodriguez MD - 05/19/2023 3:59 [...] and plan. Cynthia Blackburn MD Nephrology Pager: [phone] * Diana Espino - 05/19/2023 1:49 PM EDT Director Trade Encounter Note Patient Name: Purnima Thacker : [id number] MR#: [id number] Admit Date: 05/08/2023 9:14 AM Hospital Day [...] as stated. Total Minutes, Physical Therapy: 38 ([phone]) Henrik Navarrete PTA Pager: [phone] Physical Therapy Inpatient Rehabilitation Department * Nico [...] pull cxr. Oxy prn. Hold NSAIDS given EVASN Disposition: Floor Status, Full Code Attempt Cardiopulmonary Resuscitation - Inpatient Discussed with attending surgeon on rounds this morning. EKATERINA KIM 05/19/2023 Between the hours of 1800 - 0600 and on the weekends please page [phone]. * Laure Ricks PA - 05/19/2023 7:56 [...] Ricks PA-C Interventional Radiology IR Team Pager [phone] * Consuelo Espinoza RN - 05/18/2023 4:13 PM EDT ANGIO NURSING DATABASE Name: Purnima Thacker Date of : 1955 AGE: 67 y.o. [address]: [address] [place] [phone] (home) Mobile: No relevant phone numbers on [...] and plan. Cynthia Blackburn MD Nephrology Pager: [phone] * Magdalena Puri, DATABASE ADMINISTRATION PROJECT MANAGER - 05/18/2023 10:51 AM EDT Images from the original note were [place] [address] [address] STRUCTURAL HEART DISEASE CONSULTATION NOTE PRIMARY CARE [...] stenosis. She is now status post TAVR Fnqyp-qe-Dkufu with a 23 mm Lai 3 THV 05/12/[address] Sharma. Preliminary findings: Successful right transfemoral TAVR Qzoxe-ty-Zvcxi with a 23 mm Lai 3 THV. [...] ejection fraction Mild coronary artery disease by [facility] 11/09/2022 Heart failure with reduced [...] stenosis. She is now status post TAVR Wrxft-fx-Flkkf with a 23 mm Lai 3 THV 05/12/[address] Sharma. Janet TAVR case notable for coronary LAD protective MINNA. Status post TAVR, the patient was transferred to [facility] for pressor and inotropic [...] Magdalena Puri APRN Structural Heart Team Pager [phone] Team Office Please see addendum by Dr. Sharma for final plan and recommendations Associated attestation - Antelmo Sharma MD - 05/19/2023 10:52 PM EDT I have reviewed Magdalena Puri APRN's above history and I agree with the details as written. The assessment and plan were formulated in discussion with me and I agree with them as documented. Antelmo Sharma MD Pager [phone] * Nico Palacios PA - 05/18/2023 8:13 [...] 0600 and on the weekends please page [phone]. * Loli Hernandez, PT - 05/17/2023 5:27 [...] plan as stated. Time IN / OUT: 4439-7462 Total Minutes, Physical Therapy: 54 Billing Code: te-sx2, te-f, angely HERNANDEZ PT Pager: [phone] Physical Therapy Inpatient Rehabilitation Department * Cynthia [...] Well controlled. Cynthia Blackburn MD Nephrology Pager: [phone] * Maggie, Mara, ANURAG - 05/17/2023 8:26 [...] with attending surgeon on rounds this morning. AMRA SERRANO, ANURAG 05/17/2023 Between the hours of 1800 - 0600 and on the weekends please page [phone]. * CurtistierneymeccaGuerda C - 05/16/2023 10:44 AM EDT Nutrition Services Note - Low Nutrition Acuity Purinma Thacker is a 67 y.o. female Reason for intervention: hospital day 9 Nutrition Plan: Continue diet order Encourage good PO Lasix and Zofran noted Added special serve: open containers Monitor weight Patient scheduled for a hospital day 9 nutrition evaluation. Tube Handler met with pt at bedside. Pt reports that her appetite and PO has much improved since admission. Denies nausea/vomiting or trouble chewing/swallowing. Tube Handler provided snack list but pt not interested in adding snacks at this time. Her only concern was that she is worried that she will eat too much which will cause too much pressure in her stomach. Tube Handler assured pt and suggested eating smaller but [...] Last Bowel Movement: 05/10/23 Guerda Del Valle Sign Manufacturer * Vinod Juárez PA - 05/16/2023 10:19 [...] 0600 and on the weekends please page [phone]. * Michael Jeffers MD - 05/16/2023 8:11 AM EDT Images from the original note were not included. Hypertension-Nephrology Inpatient Follow-up Purnima Thacker [id number] 1955 ID: 67 y.o. old female seen [...] IRONSAT 12 (L) 05/16/2023 SFOLATE >20.0 07/03/2022 [id number] 07/03/2022 Lab Results Component Value Date [...] Dr. Ayoub. Please contact me at phone: [phone] or pager: [phone] with any questions. Michael Jeffers MD Nephrology [...] -Nephrology consulted, labs and renal US ordered -Bedford removed, ambulated around the unit -bilateral pleural [...] 0600 and on the weekends please page [phone]. * Hortencia Cody MD - 05/15/2023 2:07 [...] not included. Hypertension-Nephrology Inpatient Follow-up Purnima Thacker [id number] 1955 ID: 67 y.o. old female seen [...] HGB 7.8 (L) 05/13/2023 SFOLATE >20.0 07/03/2022 [id number] 07/03/2022 Lab Results Component Value Date [...] Dr. Ayoub. Please contact me at phone: [phone] or pager: [phone] with any questions. Michael Jeffers MD Nephrology [...] last 720 hours. T/L/D Art ETT CVL [place] ASSESSMENT, MANAGEMENT, and DECISION MAKIN y.o. female [...] outlined inthis evaluation. HAVEN BA, PT Pager: [phone] Physical Therapy Inpatient Rehabilitation Department Time IN / OUT: 3533-6903 Total time: Total Minutes, Physical Therapy: 30 [...] 0600 and on the weekends please page [phone]. * Antelmo Sharma MD - 05/14/2023 7:56 AM EDT Images from the original note were not included. [facility] [address] [place], [place] [address] STRUCTURAL HEART DISEASE CONSULTATION NOTE PRIMARY CARE [...] stenosis. She is now status post TAVR Lmihl-fk-Eiwrl with a 23 mm Lai 3 THV 05/12/[address] Sharma. Preliminary findings: Successful right transfemoral TAVR Thidu-pb-Sgjro with a 23 mm Lai 3 THV. [...] ejection fraction Mild coronary artery disease by [facility] 11/09/2022 Heart failure with reduced [...] stenosis. She is now status post TAVR Cdyrg-iu-Gowew with a 23 mm Lai 3 THV 05/12/[address] Sharma. Janet TAVR case notable for coronary LAD protective MINNA. Status post TAVR, the patient was transferred to [facility] for pressor and inotropic support. Pressors weaned overnight 05/12. Cardiac indices by thermodilution remained >3 with continued Milrinone 0.125 mcg/kg/min prior to PAC removal. EKG todayNSR with stable OH/QRS intervals. Hemoglobin slowly down-trending (8.2-> 7.8-> 7.2). [...] Brody Kaplan APRN Structural Heart Team Pager [phone] Team Office Please see addendum by Dr. [...] exposure. Nephrology consultationtoday. Antelmo Sharma MD Pager [phone] * Antelmo Cardenas RN - 05/14/2023 5:18 AM EDT Pt AOx4, complaining of mild/moderate generalized pain (states her Meloxicam is effective at home) currently refusing prn oxycodone. NAEON, hemodynamically stable on Milrinone, Maps >65, ST in zmc166's down to NSR with frequent multifocal PVC's. [...] were [place] [address] [address] STRUCTURAL HEART DISEASE PROGRESS NOTE PRIMARY CARE [...] stenosis. She is now status post TAVR Rnets-wy-Uftet with a 23 mm Lai 3 THV 05/12/[address] Sharma. Preliminary findings: Successful right transfemoral TAVR Ixvvv-gj-Kobil with a 23 mm Lai 3 THV. [...] perforation. Interval Events: - Transferred to [facility] post- TAVR for pressor/inotropic [...] ejection fraction Mild coronary artery disease by [facility] 11/09/2022 Heart failure with reduced [...] stenosis. She is now status post TAVR Cebag-cb-Mvcdz with a 23 mm Lai 3 THV 05/12/[address] Sharma. Janet TAVR case notable for coronary LAD protective MINNA. Status post TAVR, the patient was transferred to [facility] for pressor and inotropic support. Pressors weaned overnight. Cardiac indices by thermodilution remain greater than 3 with continued Milrinone 0.125 mcg/kg/min. EKG today NSR with stable OH/QRS intervals. Hemoglobin 7.8 today from 8.5, likely [...] Brody Kaplan APRN Structural Heart Team Pager [phone] Team Office Please see addendum by Dr. [...] DAPT moving forward. Antelmo Sharma MD Pager [phone] * KaBonita stewart PA - 05/13/2023 8:30 AM EDT Cardiac Surgery Progress Note Purnima Thacker is a 67 y.o. 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 PMH of s/p tissue AVR (2017), mixed connective tissue disease HTN, HLD, NICOLAS, diverticulosis, rosacea, essential tremor, and depression. 24h Events: From clinical laboratory aide for above procedure Extubated at ~1600 to [...] soft b/l, no evidence of hematoma. Tubes/Lines/Drains: Bedford, RIJ, A-line, Art, PIV Assessment/Plan: 67 y.o. [...] 0600 and on the weekends please page [phone]. * Onelia Schwartz MD - 05/12/2023 1:44 [...] ejection fraction Mild coronary artery disease by [facility] 11/09/2022 Heart failure with reduced [...] FiO2 weaned to 40%. 1105: ABG 7.34/42/73/22 3437-4456: SBT performed and passed on these settings [...] PCP: Magdalena Acosta MD PCP phone number: [phone] Date of Admission: 05/08/2023 ( Hospital Day [...] 0705/12/2331705/12/2310505/11/23193905/11/231446 PHART -- 7.34* 7.34* -- -- FLR6YQE -- 30* 30* -- -- PO2ART -- 72* 81* -- -- UHV0KQC -- 16.0* 15.7* -- -- LACTATEVEN 2.4* 2.7* 2.7* 4.8* 2.9* VBG (Venous Blood Gas) Recent Labs 05/12/23 0700 05/12/2331705/12/2310505/11/23193905/11/231446 LACTATEVEN 2.4* 2.7* 2.7* 4.8* 2.9* Mixed Venous Sat Recent Labs 05/12/23 0508 05/12/23 0321 05/12/23 0114 05/12/23 0030 [id number] 30.7 32.7 37.3 25.1 Objective: Vitals Last [...] questions please contact the health career and technology education teacher that requested your imaging first. Electronically signed by: ALIX RUVALCABA MD, [facility] ([phone]), at 05/10/2023 1:[address] Cardiac for [...] questions please contact the health career and technology education teacher that requested your imaging first. Electronically signed by: Cullen Narayanan MD, [facility] ([phone]), at 05/11/2023 4:[address] Angiogram Abdomen [...] questions please contact the health career and technology education teacher that requested your imaging first. Electronically signed by: Eileen Gomes MD, [facility] ([phone]), at 05/11/2023 2:42 PM XR Chest One [...] questions please contact the health career and technology education teacher that requested your imaging first. Chest [...] questions please contact the health career and technology education teacher that requested your imaging first. Assessment [...] and inotrope. She is planned for a nzgjf-hp-kfwin TAVR this morning, which should hopefully improve [...] FACP, FACC Section of Cardiovascular Medicine [facility] Salesperson Automobilescoffee grower [facility] at [facility] * Noreen Deutsch RN - 05/12/2023 [...] ejection fraction Mild coronary artery disease by [facility] 11/09/2022 Heart failure with reduced [...] 4:11 PM EDT Reported off to PHOTO GRAPHICS LIBRARIAN and pt transferred over in the bed for higher level of care. * Antelmo Sharma MD - 05/11/2023 9:45 AM EDT Images from the original note were [place] [id number] STRUCTURAL HEART DISEASE CONSULTATION NOTE PRIMARY CARE [...] who had been referred for possible TAVR wimxb-wf-eadmf evaluation. Her primary symptoms are of dyspnea [...] [facility]. 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 [employer] [...] ejection fraction Mild coronary artery disease by [facility] 11/09/2022 Heart failure with reduced [...] hour(s)) Lactate, whole blood, send to lab ([facility]) Result Value Ref Range Lactate WB 3.1 (H) 0.5 - 2.2 mmol/L Heparin (unfractionated) Level Result Value Ref Range Heparin UFH Level 0.46 IU/mL Lactate, whole blood, send to lab ([facility]) Result Value Ref Range Lactate WB 1.8 [...] leads Confirmed by MD Harshil, Enrique Bell ([id number]) on 05/10/2023 8:11:46 AM Cardiac Cath 11/09/2022 [...] decompensating HFrEF, she was transferred to [facility] this afternoon for further management. TAVR CT imaging support for adequate ileofemoral access. Given her acute deterioration today, will planfor RTF TAVR on 05/12/2023. Brody Kaplan APRN Structural Heart Disease Pager [phone] Please see addendum by Dr. Sharma for [...] signed and dated. Antelmo Sharma MD Pager [phone] * Harini Lance MD - 05/11/2023 6:06 AM EDT Images from the original note were not included. Cardiology Progress Note Patient info: Name: Purnima Thacker : 1955 PCP: Magdalena Acosta MD PCP phone number: [phone] Date of Admission: 05/08/2023 ( Hospital Day [...] questions please contact the health career and technology education teacher that requested your imaging first. Electronically signed by: ALIX RUVALCABA MD, [facility] ([phone]), at 05/10/2023 1:25 PM TTE: 05/08 -Left [...] 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) Mild coronary artery disease by [facility] 11/09/2022 Hyperlipidemia, unspecified NICOLAS (obstructive [...] PCP: Magdalena Acosta MD PCP phone number: [phone] Date of Admission: 05/08/2023 ( Hospital Day [...] left ventricular ejection fraction is 25% by Smauel's biplane. There is apical and anteroseptal akinesis [...] 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) Mild coronary artery disease by [facility] 11/09/2022 Hyperlipidemia, unspecified NICOLAS (obstructive [...] PCP: Magdalena Acosta MD PCP phone number: [phone] Date of Admission: 05/08/2023 ( Hospital Day [...] Gas) No results found for: PHART, PO2ART, VLW8WAW, YMD3ODD Microbiology: Microbiology Results (Last 30 days) No [...] PPx: Diet: Daily Healthy Menu Choices/Cardiac diet ([facility]-Diet) Lines: Peripheral IV Line - Single Lumen [...] 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) Mild coronary artery disease by [facility] 11/09/2022 Hyperlipidemia, unspecified NICOLAS (obstructive [...] Surgical History: Procedure Laterality Date PRG CATH PLIN LEFT HEART CATH & ARTS W/INJ & [...] Surgical History: Procedure Laterality Date PRG CATH [facility] LEFT HEART CATH & ARTS [...] Hgb 10.5 CMP - Cr 1.1 BNP 46483 HsTrop 1358 Lactate 1.6 D-dimer 1183 Interval [...] Klaudia Reid MD Internal Medicine PGY-1 Pager [phone], M1-S1 Service Associated attestation - Juan Luis Gonzalez MD - 05/08/2023 10:00 PM EDT Cardiology Attending Addendum Active Hospital Problems Diagnosis Symptomatic severe aortic stenosis with low ejection fraction Heart failure with reduced ejection fraction due to heart valve disease Mild coronary artery disease by [facility] 11/09/2022 Hyperlipidemia, unspecified History of [...] PCP: Magdalena Acosta MD PCP phone number: [phone] Date of Admission: 05/08/2023 ( Hospital Day [...] Hgb 10.5 CMP - Cr 1.1 BNP 92556 HsTrop 1358 Lactate 1.6 D-dimer 1183 Vasoactive [...] #Routine Diet: Daily Healthy Menu Choices/Cardiac diet ([facility]-Diet) DVT Prophylaxis: heparin gtt GI Prophylaxis: none [...] to the planned procedure. Hand Hygiene: The buckle wire inserter did perform hand hygiene prior to [...] Successful arterial line placement. Crispin Timmons MD Optical Effects Layout Person Associated attestation - Onelia Schwartz MD - [...] (flow was non-pulsatile) and appearance of blood. Bedford-Marily catheter was placed and locked at 55 [...] information for follow-up [facility], [facility] [address] [place] [address] Cardiac Rehab, [address] [place] [address] [facility], [facility] [address] [place] [address] Transportation: family or friend will provide *Brother [...] Type: *No Product type* / Secondary Insurance: [employer] [place] Prescription Coverage: Yes This plan was formulated with input from patient, family (please identify family/friend involved ifapplicable) and team. All are in agreement with plan. Aliza Martino MSN-Ed, RN ACM freight sales broker Office of Care Management Pager #[phone] * Plan of Care - Favian Mckeon [...] Chaudhary RN - 05/21/2023 4:46 PM EDTSummary: [facility] referral OFFICE OF CARE MANAGEMENT [...] geographic area. They have requested referrals to: [facility] [address] [place] [address] Ortho Care Located @ [place], [place] Note routed to a Latrine Cleaner who will communicate referrals to facilities and provide any required information. Transportation: family or friend will provide *Brother Raymond on Tuesday 05/22 at 1000 Barriers to discharge: Does not have home 22/02 assist available until tomorrow Tuesday 05/22 Plan going forward: Discharge home into the 22/02 home care of brother Raymond with [facility] and [facility] PT/OT services on Tuesday 05/22 [...] Attending: All Staff: Staff Role Juanita Almaguer Food Service Hotel Runner Laure Ricks PA Physician Kitchen Help Handyman Magdalena Rodriguez night baker Nurse Consuelo Espinoza night baker Nurse Post-operative diagnosis/Indication: Right pleural effusion Name [...] / Secondary Insurance: [facility] [place] Last Physical Therapy Recommendation: [facility] facility, [...] to: discuss discharge planning needs. provide the [facility], Office of Care Management letter from the General Manager Road Production pertaining to rehab referrals. provide a letter describing our affiliations within the [facility] and educate about their right to choose where referrals are sent. provide the CMS Star Quality Rating handout. review the different levels of rehab including SNF, swing, and acute. provide a list of facilities within their preferred geographic area. request that they provide at least three choices for referral. They have requested referrals to: [facility] [address] [place] [address] [facility] ([facility]) [address] [place] [address] (Accepts pts only after exhausting all other local SNF options) [facility] (Swing) ([facility]) [address] [place] [address] PHONE: [phone] FAX: [phone] [facility] (Swing) [facility]) [address] [place] [address] PHONE: [phone] FAX: [phone] Note routed to a Latrine Cleaner who will communicate referrals to facilities [...] Crenshaw RN - 05/17/2023 10:25 AM EDT [facility] CARDIAC REHABILITATION [...] in her course. She ultimately underwent a mkjfr-nk-mtefu procedure on and tolerated it well (see operative details). [facility] intubated and sedated on some pressors support.. [...] 1423 05/12/23 1105 PHART 7.39 7.37 7.34* CWT8AAM 33* 36 42 PO2ART 101 102 73* DFL1OKK 19.5* 20.4 22.1 LACTATEVEN 1.5 1.8 2.8* UOA2DAC 40 40 40 PFRATIOART2 252 255 182 VBG (Venous Blood Gas) Recent Labs 05/12/23 1557 05/12/23 1423 05/12/23 1105 LACTATEVEN 1.5 1.8 2.8* Mixed Venous Sat Recent Labs 05/12/23 1425 05/12/23 0508 05/12/23 0321 A9VGXF4 59.9 30.7 32.7 LFT's: Recent Labs 05/14/23 0110 05/13/23 0115 05/12/23 0600 BILITOT 0.4 0.5 0.9 BILIDIR -- 0.3 -- ALBUMIN 3.6 3.0* 3.5 ALKPHOS 86 85 100 ALT 437* 903* 1,174* AST 319* 792* 1,435* No results found for: UPROTCREAT No results found for: TPROTEINPEP, ALBELECT No results found for: MICROALBUR, SZKV48AVZ No results found for: HA1C Lab Results Component Value Date CALCIUM 8.5 05/14/2023 PHOS 4.7 (H) 05/08/2023 No results found for: 25OHVITD MICROBIOLOGY: ProcedureComponentValueUnitsDate/TimeUrine culture [[id number]]Collected: 05/11/231921Lab Status: Final resultSpecimen: Clean Catch UrineUpdated: [...] consulted for assessment if this patient needs SWEDGER. Atthis time, we can likely hold off on SWEDGER. Her volume status appears sufficient and her metabolic kanwal angements with mild acidosis is not too profound. Patient does not have significant uremic symptoms. We can hold off for today, but the patient is a high risk candidate for needing SWEDGER in future daysespecially if her Cr curve trends the direction it is for the next several days. S/p Cpfrh-sy-Rtbrj TF TAVR: Management per cardiology. On milrinone gtt. PLAN: - Please obtain following diagnostics: renal US, urinalysis, urine prot/Cr ratio, urine albumin/Cr ratio, CK, uric acid, serum osmol, daily VBGs - No acute indications for SWEDGER/dialysis. We will keep close eye on Cr trend, volume status, and metabolics to ensure patient still does not need SWEDGER as she ensues intrinsic renal recovery - [...] M.H.Katherine., M.A. PGY-V Nephrology-Hypertension Fellow Page # [phone] [facility] [address] 2nd floor, Staff Software Engineer [address] [place] [address] * Care Management - Mario Alberto Olmos [...] a TAVR at 730. Returned to [facility] at 0945. Was intubated in the clinical laboratory aide due to agitation. Maintained bedrest for 5 [...] Operative Note Patient Name: Purnima Thacker : [id number] MR#: [id number] Case Date: 05/12/2023 Surgeon: Surgeon(s) and Role: [...] procedure Note: Patient Name: Purnima Thacker : [id number] MR#: [id number] Case Date: 05/12/2023 Operators Surgeon: Surgeon(s) and [...] main with 4.0 x 30 mm Resolute Rapides Drug Eluting Stent Perclose x1 + Angio-seal 8 Fr x1, RFA Manual pressure, LFA Manual pressure, LFV Endotracheal intubation (performed by cardiac anesthesia) Preliminary findings: Successful right transfemoral TAVR Xbzho-ok-Yozgo with a 23 mm Lai 3 THV. [...] MD, M.Sc. Structural Heart Disease Fellow Pager :[phone] Antelmo Sharma MD Pager [phone] * Op Note - Alirio Hudson MD - 05/12/2023 7:37 AM EDT Preop Diagnosis: Severe aortic stenosis, symptomatic. Postop Diagnosis: Same. Procedure: Transfemoral TAVR procedure with 23mm valve. Surgeon: Alirio Hudson M.D. Toxicologist: Danny CULP Procedure: The patient was taken to the clinical laboratory aide. The patient had monitored anesthesia care. 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 [address] STRUCTURAL HEART DISEASE CONSULTATION NOTE PRIMARY CARE [...] who had been referred for possible TAVR xlxlk-ij-lupge evaluation. Her primary symptoms are of dyspnea [...] [facility]. 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 Hudson of her inpatient status, [place] primary cardiac surgeon. Based on recent clinic visit, tentative plan had been for TAVR JANET issa ferrrea given her chronological age. Nonetheless, will move forward with other diagnostic testing including cardiac and abdomen/pelvis CTA and possible catheterization. Once her testing is complete and seen by CTS, will coformulate a plan and timing for treatment of her valve. Antelmo Sharma MD Structural Heart Disease Pager [phone] * Plan of Care - Sarahi Nice RN - 05/10/2023 3:55 AM EDTSumavis: RN Note and Care Plan Sarahi Nice RN assumed care of pt at time of their arrival to room 362 from [facility]. Pt voices shortness of [...] VTE (Venous Thromboembolism) Risk Flowsheets (Taken 05/09/2023 9656) VTE Prevention/Management: anticoagulant therapy Intervention: Prevent Infection [...] listening utilized Taken 05/08/20231999 by Alivia Kauffman, c t tech/Support System Care: self-care encouraged support provided Problem: [...] care in [place] must abide by [place] law. The hierarchy [...] The agent with financial power of attorney law clerk or a conservator appointed in accordance [...] none Home Address confirmed as: [address] [address] Social & Family Supports: All names listed below confirmed with patient as current and correct Extended Emergency Contact Information Primary Emergency Contact: Martha Thacker Relation: Friend Secondary Emergency Contact: iGorgio Thacker Mobile Relation: Sibling Current Care Provided [...] Prescription Coverage: Yes Preferred Pharmacy: updated to [facility] in [facility] Status: Patient is a : No Primary Care Provider confirmed: Magdalena Acosta MD [phone] Patient/Caregiver Goals of Treatment: Potential Needs for [...] transition of care planning. Alie Bradshaw RN, Pager-[phone] * Plan of Care - Emily Lucero [...] Visit [place] [address] Markel Borjas MD [facility] HEMAT[place] [address] 11/02/2024 12:00 PM EDT [place] [address] 11/02/2024 1:00 PM EDT [place] [address] Magdalena Peralta MD [facility] [place] [address] 03/01/2025 4:15 PM EDT Office Visit Dermatology at [place] [address] [place] [address] Marek Bonilla MD [address], [place] [address] Scheduled Referrals Name Type Priority Associated Diagnoses [...] Heart Cath W/Inj L Ventriculography, Img S&I ([id number]) 05/12/2023 7:37 AM EDT Aortic valve stenosis, [...] DOPP (07/08/2023 12:15 PM EST) EF 20 [employer] Anatomical Region Laterality Modality Cardiac Other 07/08/2023 10:3 1 AM EST Narrative 07/08/2023 12:26 PM EST [address] [place] [address] ? Echocardiogram Report Name: PURNIMA THACKER ?Study Date: 07/08/2023 10:31 AMBP: 118/60 mmHg ? Patient Location: 4A : 1955 ? Height: 155 cm ? Account: [id number] Age: 67 yrs ? Weight: 74 kg Gender: Female ?BSA: 1.7 m2 Ordering Physician: ALIRIO HUDSON Referring Physician: VINOD JUÁREZ Performed By: Felicia Norris RDCS Reason For Study: S/P TAVR Exam Location: [facility]. Interpretation Summary Left ventricular systolic [...] no significant change (post-procedure). Procedure Limited - 89968. Doppler - 77513. Color Doppler - 56309. Satisfactory quality. This study is limited because [...] Note Lee Kincaid MD - 07/08/2023 [address] [place] [address] Echocardiogram Report Name: PURNIMA THACKER Study Date: 0:31 AMBP: 118/60 mmHg Patient Location: : 1955 Height: 155 cm Account: [id number] Age: 67 yrs Weight: 74 kg Gender: Female BSA: 1.7 m2 Ordering Physician: ALIRIO HUDSON Referring Physician: VINOD JUÁREZ Performed By: Felicia Norris RDCS Reason For Study: S/P TAVR Exam Location: [facility]. Interpretation Summary Left ventricular systolic [...] is nosignificant change (post-procedure). Procedure Limited - 66143. Doppler - 12348. Color Doppler - 64612. Satisfactoryquality. This study is limited because of [...] Glucose 93 65 - 199 mg/dL [facility] Comment:Diabetes: >=200 mg/d L plus symptoms Blood Urea Nitrogen 19(H) 8 - 18 mg/dL [facility] Creatinine 0.81 0.70 - 1.20 mg/dL [facility] Sodium 142 135 - 145 mmol/L [facility] Potassium 3.8 3.5 - 5.0 mmol/L [facility] Comment: Please note: ??Patients with WBC >100,000 may have falsely elevated Potassium levels. ??For accurate Potassium quantification in these patients send serum separator tube (gold top) for subsequent determinations. ??Contact the Clinical Chemistry Laboratory if there are any questions. Chloride 104 98 - 107 mmol/L [facility] Carbon Dioxide 26 22 - 31 mmol/L [facility] Anion Gap 12 5 - 15 mmol/L [facility] Calcium 10.2 8.5 - 10.5 mg/dL [facility] Protein, Total 7.4 6.1 - 8.0 g/dL [facility] Albumin 4.1 3.2 - 5.2 g/dL [facility] Aspartate Aminotransferase 24 0 - 30 unit/L [facility] Alanine Aminotransferase 12 0 - 30 unit/L [facility] Alkaline Phosphatase 93 35 - 105 unit/L [facility] Bilirubin, Total 0.3 0.2 - 1.3 mg/dL [facility] Est Glomerular Filtration Rate 80 >=60 mL/min/1. 73 m?? [facility] Comment: This patient's estimated GFR [...] Alirio Hudson MD CHEMISTRY ORDERABLE S [facility] [place] [address] * (ABNORMAL) Basic Metabolic Panel (non-fasting) (05/22/2023 3:57 AM EDT) Glucose 88 65 - 199 mg/dL [facility] Comment:Diabetes: >=200 mg/d L plus symptoms Blood Urea Nitrogen 21(H) 8 - 18 mg/dL [facility] Creatinine 0.69(L) 0.70 - 1.20 mg/dL [facility] Sodium 136 135 - 145 mmol/L [facility] Potassium 3.6 3.5 - 5.0 mmol/L [facility] Comment: Please note: ??Patients with WBC >100,000 may have falsely elevated Potassium levels. ??For accurate Potassium quantification in these patients send serum separator tube (gold top) for subsequent determinations. ??Contact the Clinical Chemistry Laboratory if there are any questions. Chloride 102 98 - 107 mmol/L [facility] Carbon Dioxide 23 22 - 31 mmol/L [facility] Anion Gap 11 5 - 15 mmol/L [facility] Calcium 8.6 8.5 - 10.5 mg/dL [facility] Est Glomerular Filtration Rate 95 >=60 mL/min/1. 73 m?? [facility] Comment: This patient's estimated GFR [...] Agency Comment Spec In Lab Mara Serrano DATABASE ADMINISTRATION PROJECT MANAGER CHEMISTRY ORDERABL ES [facility] [place] [address] * (ABNORMAL) Basic Metabolic Panel (non-fasting) (05/21/2023 5:06 AM EDT) Glucose 87 65 - 199 mg/dL [facility] Comment:Diabetes: >=200 mg/d L plus symptoms Blood Urea Nitrogen 25(H) 8 - 18 mg/dL [facility] Creatinine 0.84 0.70 - 1.20 mg/dL [facility] Sodium 136 135 - 145 mmol/L [facility] Potassium 3.6 3.5 - 5.0 mmol/L [facility] Comment: Please note: ??Patients with WBC >100,000 may have falsely elevated Potassium levels. ??For accurate Potassium quantification in these patients send serum separator tube (gold top) for subsequent determinations. ??Contact the Clinical Chemistry Laboratory if there are any questions. Chloride 102 98 - 107 mmol/L [facility] Carbon Dioxide 26 22 - 31 mmol/L [facility] Anion Gap 8 5 - 15 mmol/L [facility] Calcium 8.9 8.5 - 10.5 mg/dL [facility] Est Glomerular Filtration Rate 76 >=60 mL/min/1. 73 m?? [facility] Comment: This patient's estimated GFR [...] Narrative Resulting Agency Comment Spec In Lab [facility] DATABASE ADMINISTRATION PROJECT MANAGER CHEMISTRY ORDERABL ES Performing Organization Address City/[facility]/ZIP Co de Phone Number [facility] [place] [address] * Lavender Tube HOLD (05/20/2023 2:52 AM EDT) Lavender Hold Sample in lab. [facility] Blood Venous Draw / Unknown 05/20/2023 2:52 AM EDT 05/20/2023 3:04 AM EDT [facility] DATABASE ADMINISTRATION PROJECT MANAGER HEMATOLOGY ORDERAB LES Performing Organization Address City/[facility]/[place] [address] * (ABNORMAL) Basic Metabolic Panel (non-fasting) (05/20/2023 2:52 AM EDT) Glucose 152 65 - 199 mg/dL [facility] Comment:Diabetes: >=200 mg/d L plus symptoms Blood Urea Nitrogen 33(H) 8 - 18 mg/dL [facility] Creatinine 0.82 0.70 - 1.20 mg/dL [facility] Sodium 137 135 - 145 mmol/L [facility] Potassium 3.7 3.5 - 5.0 mmol/L [facility] Comment: Please note: ??Patients with WBC >100,000 may have falsely elevated Potassium levels. ??For accurate Potassium quantification in these patients send serum separator tube (gold top) for subsequent determinations. ??Contact the Clinical Chemistry Laboratory if there are any questions. Chloride 99 98 - 107 mmol/L [facility] Carbon Dioxide 22 22 - 31 mmol/L [facility] Anion Gap 16(H) 5 - 15 mmol/L [facility] Calcium 9.0 8.5 - 10.5 mg/dL [facility] Est Glomerular Filtration Rate 78 >=60 mL/min/1. 73 m?? [facility] Comment: This patient's estimated GFR [...] Mara Serrano ANURAG CHEMISTRY ORDERABL ES [facility] [place] [address] * (ABNORMAL) Potassium (05/20/2023 2:52 AM EDT) [...] Agency Comment Spec In Lab Mara Serrano DATABASE ADMINISTRATION PROJECT MANAGER CHEMISTRY ORDERABL ES [facility] [place] [address] * XR Chest PA & Lateral (Generic) [...] questions please contact the health career and technology education teacher that requested your imaging first. ? [...] have questions please contactthe health career and technology education teacher that requested your imaging first. Electronically signed by: Chyna Johnson MD, [facility]([phone]), at 05/19/2023 2:19 PM Alirio Hudson MD IMG DX ORDERABLES * (ABNORMAL) Basic Metabolic Panel (non-fasting) (05/19/2023 5:49 AM EDT) Glucose 93 65 - 199 mg/dL [facility] Comment:Diabetes: >=200 mg/d L plus symptoms Blood Urea Nitrogen 45(H) 8 - 18 mg/dL [facility] Creatinine 1.02 0.70 - 1.20 mg/dL [facility] Sodium 138 135 - 145 mmol/L [facility] Potassium 3.9 3.5 - 5.0 mmol/L [facility] Comment: Please note: ??Patients with WBC >100,000 may have falsely elevated Potassium levels. ??For accurate Potassium quantification in these patients send serum separator tube (gold top) for subsequent determinations. ??Contact the Clinical Chemistry Laboratory if there are any questions. Chloride 102 98 - 107 mmol/L [facility] Carbon Dioxide 26 22 - 31 mmol/L [facility] Anion Gap 10 5 - 15 mmol/L [facility] Calcium 9.7 8.5 - 10.5 mg/dL [facility] Est Glomerular Filtration Rate 60 >=60 mL/min/1. 73 m?? [facility] Comment: This patient's estimated GFR [...] OSBORN CHEMISTRY ORDERABL ES Performing Organization Address City/State/[facility] Co de Phone Number [facility] [place] [address] * IR Chest Tube Placement Right (05/18/2023 [...] Kristopher Salgado MD 05/18/2023 Alirio Hudson MD [facility] IR ORDERABLES * (ABNORMAL) Basic Metabolic Panel (non-fasting) (05/18/2023 2:54 AM EDT) Glucose 95 65 - 199 mg/dL [facility] Comment:Diabetes: >=200 mg/d L plus symptoms Blood Urea Nitrogen 71(H) 8 - 18 mg/dL [facility] Comment:result rechecked-[facility] Creatinine 1.64(H) 0.70 - 1.20 mg/dL [facility] Comment:result rechecked-[facility] Sodium 137 135 - 145 mmol/L [facility] Potassium 3.7 3.5 - 5.0 mmol/L [facility] Comment: Please note: ??Patients with WBC >100,000 may have falsely elevated Potassium levels. ??For accurate Potassium quantification in these patients send serum separator tube (gold top) for subsequent determinations. ??Contact the Clinical Chemistry Laboratory if there are any questions. Chloride 100 98 - 107 mmol/L [facility] Carbon Dioxide 24 22 - 31 mmol/L [facility] Anion Gap 13 5 - 15 mmol/L [facility] Calcium 9.7 8.5 - 10.5 mg/dL [facility] Est Glomerular Filtration Rate 34(L) >=60 mL/min/1. 73 m?? [facility] Comment: This patient's estimated GFR [...] Resulting Agency Comment Spec [facility] [place] [address] * XR Chest PA & Lateral (Generic) [...] questions please contact the health career and technology education teacher that requested your imaging first. ? Electronically signed by: Ghassan Reyes MD, [facility] ??([phone]), at 05/17/2023 11:46 AM Narrative 05/17/2023 11:46 [...] have questions please contactthe health career and technology education teacher that requested your imaging first. Electronically signed by: Ghassan Reyes MD, [facility]([phone]), at 05/17/2023 11:46 AM Alirio Hudson MD IMG DX ORDERABLES * (ABNORMAL) Comprehensive metabolic panel (non-fasting) (05/17/2023 4:35 AM EDT) Glucose 89 65 - 199 mg/dL [facility] Comment:Diabetes: >=200 mg/d L plus symptoms Blood Urea Nitrogen 97(H) 8 - 18 mg/dL [facility] Creatinine 2.97(H) 0.70 - 1.20 mg/dL [facility] Comment:result rechecked-JSJ Sodium 135 135 - 145 mmol/L [facility] Potassium 4.1 3.5 - 5.0 mmol/L [facility] Comment: Please note: ??Patients with WBC >100,000 may have falsely elevated Potassium levels. ??For accurate Potassium quantification in these patients send serum separator tube (gold top) for subsequent determinations. ??Contact the Clinical Chemistry Laboratory if there are any questions. Chloride 97(L) 98 - 107 mmol/L [facility] Carbon Dioxide 22 22 - 31 mmol/L [facility] Anion Gap 16(H) 5 - 15 mmol/L [facility] Calcium 9.6 8.5 - 10.5 mg/dL [facility] Protein, Total 6.5 6.1 - 8.0 g/dL [facility] Albumin 3.7 3.2 - 5.2 g/dL [facility] Aspartate Aminotransferase 58(H) 0 - 30 unit/L [facility] Alanine Aminotransferase 66(H) 0 - 30 unit/L [facility] Alkaline Phosphatase 86 35 - 105 unit/L [facility] Bilirubin, Total 0.6 0.2 - 1.3 mg/dL [facility] Est Glomerular Filtration Rate 17(L) >=60 mL/min/1. 73 m?? [facility] Comment: This patient's estimated GFR [...] S Performing Organization Address [facility] Co de Phone Number [facility] [place] [address] * Potassium (05/16/2023 11:15 PM EDT) Potassium 3.7 3.5 - 5.0 mmol/L [facility] Comment: Please note: ??Patients with [...] MD CHEMISTRY ORDERABLE S Performing Organization Address City/[facility] Co de Phone Number [facility] [place] [address] * Magnesium (05/16/2023 5:22 PM EDT) Magnesium 0.96 0.69 - 1.07 mmol/L [facility] Blood 05/16/2023 5:22 PM EDT 05/16/2023 5:27 PM EDT Narrative Resulting Agency Comment Spec In Lab Alirio Hudson MD CHEMISTRY ORDERABLE S Performing Organization Address City/[facility]/ZIP Co de Phone Number [facility] [place] [address] * (ABNORMAL) Basic Metabolic Panel (non-fasting) (05/16/2023 5:22 PM EDT) Glucose 106 65 - 199 mg/dL [facility] Comment:Diabetes: >=200 mg/d L plus symptoms Blood Urea Nitrogen 103(H) 8 - 18 mg/dL [facility] Creatinine 3.91(H) 0.70 - 1.20 mg/dL [facility] Comment:result rechecked-imm Sodium 132(L) 135 - 145 mmol/L [facility] Potassium 3.6 3.5 - 5.0 mmol/L [facility] Comment: Please note: ??Patients with WBC >100,000 may have falsely elevated Potassium levels. ??For accurate Potassium quantification in these patients send serum separator tube (gold top) for subsequent determinations. ??Contact the Clinical Chemistry Laboratory if there are any questions. Chloride 92(L) 98 - 107 mmol/L [facility] Carbon Dioxide 22 22 - 31 mmol/L [facility] Anion Gap 18(H) 5 - 15 mmol/L [facility] Calcium 9.7 8.5 - 10.5 mg/dL [facility] Est Glomerular Filtration Rate 12(L) >=60 mL/min/1. 73 m?? [facility] Comment: This patient's estimated GFR [...] Alirio Hudson MD CHEMISTRY ORDERABLE S [facility] [place] [address] * (ABNORMAL) Potassium (05/16/2023 11:43 AM EDT) Potassium 3.3(L) 3.5 - 5.0 mmol/L [facility] Comment: Please note: ??Patients with [...] MD CHEMISTRY ORDERABLE S Performing Organization Address City/[facility]/ZIP Co de Phone Number [facility] [place] [address] * (ABNORMAL) Ferritin (05/16/2023 4:41 AM EDT) Ferritin 1,813(H) 30 - 400 ng/mL [facility] Comment: Pediatric reference ranges not verified at [facility], interpret with caution. Reference ranges for females greater than 50 years of age approach values for men, i.e., 30-400 ng/mL. Blood 05/16/2023 4:41 AM EDT 05/16/2023 4:54 AM EDT Narrative Resulting Agency Comment Spec In Lab Kristopher Ayoub MD CHEMISTRY ORDERABLES [facility] [place] [address] * (ABNORMAL) PTH (05/16/2023 4:41 AM EDT) Parathyroid Hormone 120(H) 15 - 65 pg/mL [facility] Blood 05/16/2023 4:41 AM EDT 05/16/2023 4:54 AM EDT Narrative Resulting Agency Comment Spec In Lab Kristopher Ayoub MD CHEMISTRY ORDERABLES [facility] [place] [address] * Vitamin D, 25-Hydroxy (05/16/2023 4:41 AM EDT) Vitamin D Total 25 OH 33 21 - 100 ng/mL [facility] Vit D Interp Sufficient [facility] Blood 05/16/2023 4:41 AM EDT 05/16/2023 4:54 AM EDT Narrative Resulting Agency Comment Spec In Lab Kristopher Ayoub MD CHEMISTRY ORDERABLES Performing Organization Address City/[facility]/ZIP Co de Phone Number [facility] [place] [address] * (ABNORMAL) Blood Gas Venous ([facility]) (05/16/2023 4:22 AM EDT) pH, Venous 7.41 7.32 - 7.42 [facility] PCO2, Venous 32(L) 41 - 51 mmHg [facility] PO2, Venous 73(H) 25 - 40 mmHg [facility] Bicarbonate, Venous 19.6 mmol/L [facility] Base Excess, Venous -5.1 mmol/L [facility] Hgb Blood Gas 9.7(L) 11.7 - 15.5 g/dL [facility] Oxyhemoglobin, Venous 92.8 % [facility] Carboxyhemoglob in, Venous 0.1 % [facility] Comment: Nonsmokers: 0.5-1.5% COHB Smokers: Variable, but usually less than 10% Toxic: 20-30% COHB Lethal: Greater than 60% COHB Methemoglobin, Venous 0.3 <=1.5 % [facility] Na Whole Blood 130(L) 135 - 145 mmol/L [facility] K Whole Blood 3.7 3.5 - 5.0 mmol/L [facility] Comment: Please note: Patients with WBC >100,000 may have falsely elevated Potassium levels. Contact the Clinical Chemistry Laboratory if there are any questions. ICa Whole Blood 1.15 1.15 - 1.33 mmol/L [facility] Comment: Note: ??Total bilirubin higher than 20 mg/dL may lead to falsely low ionized calcium. CL Whole Blood 95(L) 98 - 107 mmol/L [facility] Gluc Whole Bld 82 65 - 199 mg/dL [facility] Comment:Diabetes: >=200 mg/d L plus symptoms Lactate WB 1.1 0.5 - 2.2 mmol/L [facility] Blood Gas Source Venous [facility] Blood Venous Draw / Unknown 05/16/2023 4:22 AM EDT 05/16/2023 4:31 AM EDT Narrative Resulting Agency Comment Spec In Lab Bonita TOBAR CHEMISTRY ORDERABLES [facility] [place] [address] * (ABNORMAL) Differential, Automated (05/16/2023 4:20 AM EDT) Neutrophil % 84.1 % [facility] Neutrophil Absolute 6.22(H) 1.70 - 6.10 x10(3)/mc L [facility] Lymph % 5.8 % [facility] Lymphocytes Abs 0.4(L) 0.9 - 3.2 x10(3)/mc L [facility] Monocyte % 8.8 % [facility] Monocyte Abs 0.6 0.3 - 0.9 x10(3)/mc L [facility] Eos % 0.4 % [facility] Eosinophils Abs 0.0 0.0 - 0.4 x10(3)/mc L [facility] Basophil % 0.0 % [facility] Baso Absolute 0.0 0.0 - 0.1 x10(3)/mc L [facility] Immature Gran % 0.90 % [facility] Comment: Immature granulocytes(IG's)percentage and absolute count will include metamyelocytes, myelocytes, and promyelocytes. Blood smears from CBCs yielding IG's will be scanned manually for concordance. If this scan disagrees with the automated IG or if promyelocytes are noted, a manual differential will be performed. Immature Gran Absolute 0.07(H) 0.00 - 0.04 x10(3)/mc L [facility] Blood 05/16/2023 4:20 AM EDT 05/16/2023 4:29 AM EDT Narrative Resulting Agency Comment Spec In Lab James Agustin MD HEMATOLOGY ORDER JODIE [facility] [place] [address] * (ABNORMAL) Hemogram (05/16/2023 4:20 AM EDT) White Blood Cell 7.4 4.0 - 9.5 x10(3)/mc L [facility] Red Blood Cell 2.40(L) 4.00 - 5.21 x10(6)/mc L [facility] Hemoglobin 7.8(L) 11.7 - 15.5 g/dL [facility] Hematocrit 22.5(L) 35.7 - 45.8 % [facility] Mean Cell Volume 93.8 82.6 - 94.4 fL [facility] Mean Cell Hemoglobin 32.5(H) 27.1 - 32.0 pg [facility] Mean Cell Hemoglobin Concentration 34.7 31.7 - 35.0 g/dL [facility] Platelet 120(L) 145 - 357 x10(3)/mc L [facility] RDW Standard Deviation 42.9 37.0 - 46.0 fL [facility] RDW coefficient of variation 12.9 11.5 - 14.1 % [facility] Mean Platelet Volume 11.3 7.6 - 12.9 fL [facility] NRBC% auto 0.7 % [facility] NRBC Absolute 0.050(H) 0.000 - 0.000 x10(3)/mc L [facility] Blood 05/16/2023 4:20 AM EDT 05/16/2023 4:29 AM EDT Narrative Resulting Agency Comment Spec In Lab James Agustin MD HEMATOLOGY ORDER JODIE Performing Organization Address City/[facility]/ZIP Co de Phone Number [facility] [place] [address] * (ABNORMAL) Basic Metabolic Panel (non-fasting) (05/16/2023 4:20 AM EDT) Glucose 89 65 - 199 mg/dL [facility] Comment:Diabetes: >=200 mg/d L plus symptoms Blood Urea Nitrogen 108(H) 8 - 18 mg/dL [facility] Creatinine 4.74(H) 0.70 - 1.20 mg/dL [facility] Comment:result rechecked-OLIVA Sodium 132(L) 135 - 145 mmol/L [facility] Potassium 3.9 3.5 - 5.0 mmol/L [facility] Comment: Please note: ??Patients with WBC >100,000 may have falsely elevated Potassium levels. ??For accurate Potassium quantification in these patients send serum separator tube (gold top) for subsequent determinations. ??Contact the Clinical Chemistry Laboratory if there are any questions. Chloride 95(L) 98 - 107 mmol/L [facility] Carbon Dioxide 18(L) 22 - 31 mmol/L [facility] Anion Gap 19(H) 5 - 15 mmol/L [facility] Calcium 9.2 8.5 - 10.5 mg/dL [facility] Est Glomerular Filtration Rate 10(L) >=60 mL/min/1. 73 m?? [facility] Comment: This patient's estimated GFR [...] Alirio Hudson MD CHEMISTRY ORDERABLE S [facility] [place] [address] * (ABNORMAL) Iron and TIBC (05/16/2023 4:20 AM EDT) Iron 31 30 - 150 mcg/dL [facility] TIBC 259 250 - 450 mcg/dL [facility] Iron Saturation 12(L) 20 - 50 % [facility] Blood 05/16/2023 4:20 AM EDT 05/16/2023 4:29 AM EDT Narrative Resulting Agency Comment Spec In Lab Kristopher Ayoub MD CHEMISTRY ORDERABLES [facility] [place] [address] * (ABNORMAL) Basic Metabolic Panel (non-fasting) (05/15/2023 12:50 AM EDT) Glucose 101 65 - 199 mg/dL [facility] Comment:Diabetes: >=200 mg/d L plus symptoms Blood Urea Nitrogen 109(H) 8 - 18 mg/dL [facility] Creatinine 5.62(H) 0.70 - 1.20 mg/dL [facility] Comment:result rechecked-KS Sodium 131(L) 135 - 145 mmol/L [facility] Comment:result rechecked-KS Potassium 3.7 3.5 - 5.0 mmol/L [facility] Comment: result rechecked-KS Please note: ??Patients with WBC >100,000 may have falsely elevated Potassium levels. ??For accurate Potassium quantification in these patients send serum separator tube (gold top) for subsequent determinations. ??Contact the Clinical Chemistry Laboratory if there are any questions. Chloride 92(L) 98 - 107 mmol/L [facility] Comment:result rechecked-KS Carbon Dioxide 18(L) 22 - 31 mmol/L [facility] Comment:result rechecked-KS Anion Gap 21(H) 5 - 15 mmol/L [facility] Calcium 8.9 8.5 - 10.5 mg/dL [facility] Est Glomerular Filtration Rate 8(L) >=60 mL/min/1. 73 m?? [facility] Comment: This patient's estimated GFR [...] Alirio Hudson MD CHEMISTRY ORDERABLE S [facility] [place] [address] * (ABNORMAL) Hemogram (05/15/2023 12:50 AM EDT) White Blood Cell 9.1 4.0 - 9.5 x10(3)/mc L [facility] Red Blood Cell 2.19(L) 4.00 - 5.21 x10(6)/mc L [facility] Hemoglobin 7.2(L) 11.7 - 15.5 g/dL [facility] Hematocrit 20.6(L) 35.7 - 45.8 % [facility] Mean Cell Volume 94.1 82.6 - 94.4 fL [facility] Mean Cell Hemoglobin 32.9(H) 27.1 - 32.0 pg [facility] Mean Cell Hemoglobin Concentration 35.0 31.7 - 35.0 g/dL [facility] Platelet 109(L) 145 - 357 x10(3)/mc L [facility] RDW Standard Deviation 43.6 37.0 - 46.0 fL [facility] RDW coefficient of variation 12.9 11.5 - 14.1 % [facility] Mean Platelet Volume 10.4 7.6 - 12.9 fL [facility] NRBC% auto 2.1 % [facility] NRBC Absolute 0.190(H) 0.000 - 0.000 x10(3)/mc L [facility] Blood 05/15/2023 12:5 0 AM EDT 05/15/2023 12:52 AM EDT Narrative Resulting Agency Comment Spec In Lab Alirio Hudson MD HEMATOLOGY ORDERABL ES [facility] [address] [place] [address] * (ABNORMAL) BLOOD GAS 2 VENOUS (05/15/2023 12:49 AM EDT) pH, Venous 7.33 7.32 - 7.42 [facility] PCO2, Venous 37(L) 41 - 51 mmHg [facility] PO2, Venous 34 25 - 40 mmHg [facility] Bicarbonate, Venous 19.1 mmol/L [facility] Base Excess, Venous -6.8 mmol/L [facility] Hgb Blood Gas 10.8(L) 11.7 - 15.5 g/dL [facility] Oxyhemoglobin, Venous 58.1 % [facility] Carboxyhemoglob in, Venous 0.3 % [facility] Comment: Nonsmokers: 0.5-1.5% COHB Smokers: Variable, but usually less than 10% Toxic: 20-30% COHB Lethal: Greater than 60% COHB Methemoglobin, Venous 0.6 <=1.5 % [facility] Na Whole Blood 136 135 - 145 mmol/L [facility] K Whole Blood 3.7 3.5 - 5.0 mmol/L [facility] Comment: Please note: Patients with WBC >100,000 may have falsely elevated Potassium levels. Contact the Clinical Chemistry Laboratory if there are any questions. ICa Whole Blood 1.12(L) 1.15 - 1.33 mmol/L [facility] Comment: Note: ??Total bilirubin higher than 20 mg/dL may lead to falsely low ionized calcium. CL Whole Blood 95(L) 98 - 107 mmol/L [facility] Gluc Whole Bld 101 65 - 199 mg/dL [facility] Comment:Diabetes: >=200 mg/d L plus symptoms Lactate WB 1.3 0.5 - 2.2 mmol/L [facility] Flow, Mike 1.0 LPM [facility] Blood Gas Source Venous [facility] Blood 05/15/2023 12:4 9 AM EDT 05/15/2023 12:49 AM EDT Alirio Hudson MD POINT OF CARE TEST ORDERABLES [facility] [place] [address] * US Retroperitoneal Complete (05/14/2023 3:53 PM [...] signed by: Hayden Robledo MD, [facility] ([phone]), at 05/14/2023 4:32 PM Thank you for letting us participate in the care of this patient. If you are a health care provider and have any questions regarding this report, please contact the number above. For patients who have questions, please contact the health career and technology education teacher that requested your imaging first. ? Hayden Robledo, Staff Physician Electronically Signed Final Report ?? 05/14/2023 04:39 pm Narrative 05/14/2023 4:39 PM EDT Renal ? (Signed Final 05/14/2023 04:39 pm) PATIENT INFO: ID #: ? [id number] ?: ??[birth year] (67 yrs)(F) Name: ? PURNIMA THACKER ?Visit Date: 05/14/2023 03:44 pm PERFORMED BY: Attending: ?Meena CULP, Hayden Stafford Resident: ? Nell CULP, Anand August Performed By: ? Consuelo Tello RDMS Referred By: ?ALIRIO HUDSON Location: ? [place] SERVICE(S) PROVIDED: URETRO - Retroperitoneal Complete - [id number] ? [id number] INDICATIONS: EVANS COMPARISON: CT: Abdomen/Pelvis 05/11/23 RIGHT [...] 05/14/2023 04:39 pm) PATIENT INFO: ID #: [id number] : [birth year] (67 yrs)(F) Name: PURNIMA THACKER Visit Date: 05/14/2023 03:44 pm PERFORMED BY: Attending: Meena CULP, Hayden Stafford Resident: Anand Camejo MD Performed By: Consuelo Tello RDMS Referred By: ALIRIO HUDSON Location: [place] SERVICE(S) PROVIDED: URETRO - Retroperitoneal Complete - [id number] INDICATIONS: EVANS COMPARISON: CT: Abdomen/Pelvis 05/11/23 RIGHT [...] signed by: Hayden Robledo MD, [facility] ([phone]), at 05/14/2023 4:32 PM Thank you for letting us participate in the care of this patient. If you are a health care provider and have any questions regarding this report, please contact the number above. For patients who have questions, please contact the health career and technology education teacher that requested your imaging first. Hayden Robledo, Staff Physician Electronically Signed Final Report 05/14/2023 04:39 pm Alirio Hudson MD IMG US GEN ORDERABL ES * CK (05/14/2023 3:17 PM EDT) Pathologist [facility] Creatine Kinase 123 0 - 160 unit/L [facility] Blood 05/14/2023 3:17 PM EDT 05/14/2023 3:31 PM EDT Narrative Resulting Agency Comment Spec In Lab Alirio Hudson MD CHEMISTRY ORDERABLE S [facility] [place] [address] * (ABNORMAL) Uric acid (05/14/2023 3:17 PM EDT) Pathologist [facility] Uric Acid 14.9(H) 2.5 - 6.5 mg/dL [facility] Blood 05/14/2023 3:17 PM EDT 05/14/2023 3:31 PM EDT Narrative Resulting Agency Comment Spec In Lab Alirio Hudson MD CHEMISTRY ORDERABLE S Performing Organization Address City/[facility] Co de Phone Number [facility] [place] [address] * (ABNORMAL) Osmolality (05/14/2023 3:17 PM EDT) Osmolality 311(H) 275 - 295 mOsm/kg [facility] Blood 05/14/2023 3:17 PM EDT 05/14/2023 3:31 PM EDT Narrative Resulting Agency Comment Spec In Lab Alirio Hudson MD CHEMISTRY ORDERABLE S Performing Organization Address [facility] de Phone Number [facility] [place] [address] * (ABNORMAL) Differential, Automated (05/14/2023 1:10 AM EDT) Neutrophil % 87.2 % [facility] Neutrophil Absolute 9.74(H) 1.70 - 6.10 x10(3)/mc L [facility] Lymph % 3.9 % [facility] Lymphocytes Abs 0.4(L) 0.9 - 3.2 x10(3)/mc L [facility] Monocyte % 7.9 % [facility] Monocyte Abs 0.9 0.3 - 0.9 x10(3)/mc L [facility] Eos % 0.0 % [facility] Eosinophils Abs 0.0 0.0 - 0.4 x10(3)/mc L [facility] Basophil % 0.1 % [facility] Baso Absolute 0.0 0.0 - 0.1 x10(3)/mc L [facility] Immature Gran % 0.90 % [facility] Comment: Immature granulocytes(IG's)percentage and absolute count will include metamyelocytes, myelocytes, and promyelocytes. Blood smears from CBCs yielding IG's will be scanned manually for concordance. If this scan disagrees with the automated IG or if promyelocytes are noted, a manual differential will be performed. Immature Gran Absolute 0.10(H) 0.00 - 0.04 x10(3)/mc L [facility] Blood 05/14/2023 1:10 AM EDT 05/14/2023 1:24 AM EDT Narrative Resulting Agency Comment Spec In Lab Bonita TOBAR HEMATOLOGY ORDERABLE S [facility] [place] [address] * (ABNORMAL) Hemogram (05/14/2023 1:10 AM EDT) White Blood Cell 11.2(H) 4.0 - 9.5 x10(3)/mc L [facility] Red Blood Cell 2.19(L) 4.00 - 5.21 x10(6)/mc L [facility] Hemoglobin 7.2(L) 11.7 - 15.5 g/dL [facility] Hematocrit 20.3(L) 35.7 - 45.8 % [facility] Mean Cell Volume 92.7 82.6 - 94.4 fL [facility] Mean Cell Hemoglobin 32.9(H) 27.1 - 32.0 pg [facility] Mean Cell Hemoglobin Concentration 35.5(H) 31.7 - 35.0 g/dL [facility] Platelet 112(L) 145 - 357 x10(3)/mc L [facility] RDW Standard Deviation 41.4 37.0 - 46.0 fL [facility] RDW coefficient of variation 12.5 11.5 - 14.1 % [facility] Mean Platelet Volume 10.4 7.6 - 12.9 fL [facility] NRBC% auto 1.5 % [facility] NRBC Absolute 0.170(H) 0.000 - 0.000 x10(3)/mc L [facility] Blood 05/14/2023 1:10 AM EDT 05/14/2023 1:24 AM EDT Narrative Resulting Agency Comment Spec In Lab Bontia TOBAR HEMATOLOGY ORDERABLE S [facility] [place] [address] * (ABNORMAL) Comprehensive metabolic panel (non-fasting) (05/14/2023 1:10 AM EDT) Glucose 120 65 - 199 mg/dL [facility] Comment:Diabetes: >=200 mg/d L plus symptoms Blood Urea Nitrogen 98(H) 8 - 18 mg/dL [facility] Creatinine 4.80(H) 0.70 - 1.20 mg/dL [facility] Comment:result rechecked-ssc Sodium 132(L) 135 - 145 mmol/L [facility] Potassium 4.1 3.5 - 5.0 mmol/L [facility] Comment: Please note: ??Patients with WBC >100,000 may have falsely elevated Potassium levels. ??For accurate Potassium quantification in these patients send serum separator tube (gold top) for subsequent determinations. ??Contact the Clinical Chemistry Laboratory if there are any questions. Chloride 94(L) 98 - 107 mmol/L [facility] Carbon Dioxide 18(L) 22 - 31 mmol/L [facility] Anion Gap 20(H) 5 - 15 mmol/L [facility] Calcium 8.5 8.5 - 10.5 mg/dL [facility] [facility] Protein, Total 5.8(L) 6.1 - 8.0 g/dL [facility] Albumin 3.6 3.2 - 5.2 g/dL [facility] Aspartate Aminotransferase 319(H) 0 - 30 unit/L [facility] Alanine Aminotransferase 437(H) 0 - 30 unit/L [facility] Alkaline Phosphatase 86 35 - 105 unit/L [facility] Bilirubin, Total 0.4 0.2 - 1.3 mg/dL [facility] Est Glomerular Filtration Rate 9(L) >=60 mL/min/1. 73 m?? [facility] Comment: This patient's estimated GFR [...] S Performing Organization Address [facility] de Phone Number [facility] [place] [address] * APTT (05/13/2023 10:15 AM EDT) Partial Thromboplastin Time 27 25 - 37 sec [facility] Comment: The PTT is NOT [...] ES Performing Organization Address [facility] Co de Phone Number [facility] [place] [address] * (ABNORMAL) Prothrombin Time (05/13/2023 10:15 AM EDT) Prothrombin Time 14.6(H) 9.4 - 12.5 sec [facility] International Normalization Ratio 1.3 [facility] Comment: An INR <2.0 indicates [...] MD HEMATOLOGY ORDERABL ES Performing Organization Address City/[facility]/ZIP Co de Phone Number [facility] [place] [address] * EKG 12 Lead (05/13/2023 9:22 AM EDT) Ventricular rate 92 BPM MUSE SYSTEM Atrial Rate 92 BPM MUSE SYSTEM P-R Interval 140 ms MUSE SYSTEM QRS Duration 104 ms MUSE SYSTEM Q-T Interval 384 ms MUSE SYSTEM QTC Calculated (Bezet) 474 ms MUSE SYSTEM Calculated P Gilsum 33 degrees MUSE SYSTEM Calculated R Gil[place] 41 degrees MUSE SYSTEM Calculated T Gil[place] -35 degrees MUSE SYSTEM INTERPRETATION Sinus rhythm with frequent Premature ventricular complexes Septal infarct , age undetermined ST & T wave abnormality, consider lateral ischemia Abnormal ECG When compared with ECG of 12-MAY-2023 10:10, Premature ventricular complexes are now Present I personally reviewed the tracing and edited the fellows interpretation Confirmed by fellow MD Anitha, [facility] ([id number]) on 05/13/2023 3:25:30 PM Confirmed by Maxx Best ([id number]) on 05/13/2023 8:30:56 PM MUSE SYSTEM 05/13/2023 9:22 AM EDT 05/13/2023 8:30 PM EDT Alirio Hudson MD ECG ORDERABLES Performing Organization Address City/[facility]/ZIP Co de Phone Number M[facility] SYSTEM * (ABNORMAL) Differential, Automated (05/13/2023 1:15 AM EDT) Neutrophil % 88.1 % [facility] Neutrophil Absolute 7.62(H) 1.70 - 6.10 x10(3)/mc L [facility] Lymph % 3.1 % [facility] Lymphocytes Abs 0.3(L) 0.9 - 3.2 x10(3)/mc L [facility] Monocyte % 7.9 % [facility] Monocyte Abs 0.7 0.3 - 0.9 x10(3)/mc L [facility] Eos % 0.0 % [facility] Eosinophils Abs 0.0 0.0 - 0.4 x10(3)/mc L [facility] Basophil % 0.1 % [facility] Baso Absolute 0.0 0.0 - 0.1 x10(3)/ L [facility] Immature Gran % 0.80 % [facility] Comment: Immature granulocytes(IG's)percentage and absolute count will include metamyelocytes, myelocytes, and promyelocytes. Blood smears from CBCs yielding IG's will be scanned manually for concordance. If this scan disagrees with the automated IG or if promyelocytes are noted, a manual differential will be performed. Immature Gran Absolute 0.07(H) 0.00 - 0.04 x10(3)/ L [facility] Blood 05/13/2023 1:15 AM EDT 05/13/2023 1:29 AM EDT Narrative Resulting Agency Comment Spec In Lab Lorri TOBAR HEMATOLOGY ORDERABLE S Performing Organization Address City/State/[facility] Co de Phone Number [facility] [place] [address] * (ABNORMAL) Hemogram (05/13/2023 1:15 AM EDT) White Blood Cell 8.6 4.0 - 9.5 x10(3)/mc L [facility] Red Blood Cell 2.37(L) 4.00 - 5.21 x10(6)/ L [facility] Hemoglobin 7.8(L) 11.7 - 15.5 g/dL [facility] Hematocrit 22.2(L) 35.7 - 45.8 % [facility] Mean Cell Volume 93.7 82.6 - 94.4 fL [facility] Mean Cell Hemoglobin 32.9(H) 27.1 - 32.0 pg [facility] Mean Cell Hemoglobin Concentration 35.1(H) 31.7 - 35.0 g/dL [facility] Platelet 130(L) 145 - 357 x10(3)/mc L [facility] RDW Standard Deviation 41.7 37.0 - 46.0 fL [facility] RDW coefficient of variation 12.5 11.5 - 14.1 % [facility] Mean Platelet Volume 10.2 7.6 - 12.9 fL [facility] NRBC% auto 0.5 % [facility] NRBC Absolute 0.040(H) 0.000 - 0.000 x10(3)/mc L [facility] Blood 05/13/2023 1:15 AM EDT 05/13/2023 1:29 AM EDT Narrative Resulting Agency Comment Spec In Lab Lorri TOBAR HEMATOLOGY ORDERABLE S Performing Organization Address City/[facility] Co de Phone Number [facility] [place] [address] * (ABNORMAL) Hepatic Function Panel (05/13/2023 1:15 AM EDT) Protein, Total 5.5(L) 6.1 - 8.0 g/dL [facility] Albumin 3.0(L) 3.2 - 5.2 g/dL [facility] Aspartate Aminotransferase 792(H) 0 - 30 unit/L [facility] Alanine Aminotransferase 903(H) 0 - 30 unit/L [facility] Alkaline Phosphatase 85 35 - 105 unit/L [facility] Bilirubin, Total 0.5 0.2 - 1.3 mg/dL [facility] Bilirubin, Direct 0.3 0.0 - 0.3 mg/dL [facility] Blood 05/13/2023 1:15 AM EDT 05/13/2023 1:29 AM EDT Narrative Resulting Agency Comment Spec In Lab Alirio Hudson MD CHEMISTRY ORDERABLE S Performing Organization Address City/[facility]/ZIP Co de Phone Number [facility] [place] [address] * (ABNORMAL) Basic Metabolic Panel (non-fasting) (05/13/2023 1:15 AM EDT) Glucose 107 65 - 199 mg/dL [facility] Comment:Diabetes: >=200 mg/d L plus symptoms Blood Urea Nitrogen 82(H) 8 - 18 mg/dL [facility] Creatinine 3.15(H) 0.70 - 1.20 mg/dL [facility] Comment:result rechecked-JSJ Sodium 132(L) 135 - 145 mmol/L [facility] Potassium 3.8 3.5 - 5.0 mmol/L [facility] Comment: Please note: ??Patients with WBC >100,000 may have falsely elevated Potassium levels. ??For accurate Potassium quantification in these patients send serum separator tube (gold top) for subsequent determinations. ??Contact the Clinical Chemistry Laboratory if there are any questions. Chloride 95(L) 98 - 107 mmol/L [facility] Carbon Dioxide 20(L) 22 - 31 mmol/L [facility] Anion Gap 17(H) 5 - 15 mmol/L [facility] Calcium 8.3(L) 8.5 - 10.5 mg/dL [facility] Est Glomerular Filtration Rate 16(L) >=60 mL/min/1. 73 m?? [facility] Comment: This patient's estimated GFR [...] Alirio Hudson MD CHEMISTRY ORDERABLE S [facility] [place] [address] * (ABNORMAL) BLOOD GAS 2 ARTERIAL (05/12/2023 3:57 PM EDT) pH, Arterial 7.39 7.35 - 7.45 [facility] PCO2, Arterial 33(L) 35 - 45 mmHg [facility] PO2, Arterial 101 85 - 104 mmHg [facility] Bicarbonate, Arterial 19.5(L) 20.0 - 26.0 mmol/L [facility] Base Excess, Arterial -5.5(L) -3.0 - 3.0 mmol/L [facility] Hgb Blood Gas 9.8(L) 11.7 - 15.5 g/dL [facility] Oxyhemoglobin, Arterial 95.2 94.0 - 97.0 % [facility] Carboxyhemoglob in, Arterial 0.2 % [facility] Comment: Nonsmokers: 0.5-1.5% COHB Smokers: Variable, but usually less than 10% Toxic: 20-30% COHB Lethal: Greater than 60% COHB Methemoglobin, Arterial 0.8 <=1.5 % [facility] Na Whole Blood 129(L) 135 - 145 mmol/L [facility] K Whole Blood 3.8 3.5 - 5.0 mmol/L [facility] Comment: Please note: Patients with WBC >100,000 may have falsely elevated Potassium levels. Contact the Clinical Chemistry Laboratory if there are any questions. ICa Whole Blood 1.05(L) 1.15 - 1.33 mmol/L [facility] Comment: Note: ??Total bilirubin higher than 20 mg/dL may lead to falsely low ionized calcium. CL Whole Blood 96(L) 98 - 107 mmol/L [facility] Gluc Whole Bld 178 65 - 199 mg/dL [facility] Comment:Diabetes: >=200 mg/d L plus symptoms. Lactate WB 1.5 0.5 - 2.2 mmol/L [facility] FIO2 Art 40 % [facility] PF Ratio Art 252 [facility] Blood 05/12/2023 3:57 PM EDT 05/12/2023 3:57 PM EDT Alirio Hudson MD POINT OF CARE TEST ORDERABLES [facility] [place] [address] * (ABNORMAL) Coox2 (05/12/2023 2:25 PM EDT) pO2, Coox 37 mmHg [facility] Hgb Blood Gas 9.5(L) 11.7 - 15.5 g/dL [facility] Oxyhemoglobin, Coox 59.9 % [facility] Carboxyhemoglo bin, Coox 0.3 % [facility] Comment: Nonsmokers: 0.5-1.5% COHB Smokers: Variable, but usually less than 10% Toxic: 20-30% COHB Lethal: Greater than 60% COHB Methemoglobin, Coox 0.7 <=1.5 % [facility] Source Coox Mixed Venous [facility] Blood 05/12/2023 2:25 PM EDT 05/12/2023 2:25 PM EDT Alirio Hudson MD POINT OF CARE TEST ORDERABLES [facility] [place] [address] * (ABNORMAL) BLOOD GAS 2 ARTERIAL (05/12/2023 2:23 PM EDT) pH, Arterial 7.37 7.35 - 7.45 [facility] PCO2, Arterial 36 35 - 45 mmHg [facility] PO2, Arterial 102 85 - 104 mmHg [facility] Bicarbonate, Arterial 20.4 20.0 - 26.0 mmol/L [facility] Base Excess, Arterial -4.8(L) -3.0 - 3.0 mmol/L [facility] Hgb Blood Gas 12.7 11.7 - 15.5 g/dL [facility] Oxyhemoglobin, Arterial 95.4 94.0 - 97.0 % [facility] Carboxyhemoglob in, Arterial 0.3 % [facility] Comment: Nonsmokers: 0.5-1.5% COHB Smokers: Variable, but usually less than 10% Toxic: 20-30% COHB Lethal: Greater than 60% COHB Methemoglobin, Arterial 0.7 <=1.5 % [facility] Na Whole Blood 129(L) 135 - 145 mmol/L [facility] K Whole Blood 3.7 3.5 - 5.0 mmol/L [facility] Comment: Please note: Patients with WBC >100,000 may have falsely elevated Potassium levels. Contact the Clinical Chemistry Laboratory if there are any questions. ICa Whole Blood 1.05(L) 1.15 - 1.33 mmol/L [facility] Comment: Note: ??Total bilirubin higher than 20 mg/dL may lead to falsely low ionized calcium. CL Whole Blood 95(L) 98 - 107 mmol/L [facility] Gluc Whole Bld 168 65 - 199 mg/dL [facility] Comment:Diabetes: >=200 mg/d L plus symptoms. Lactate WB 1.8 0.5 - 2.2 mmol/L [facility] FIO2 Art 40 % [facility] PF Ratio Art 255 [facility] Blood 05/12/2023 2:23 PM EDT 05/12/2023 2:23 PM EDT Alirio Hudson MD POINT OF CARE TEST ORDERABLES [facility] [place] [address] * (ABNORMAL) Troponin (05/12/2023 2:05 PM EDT) Troponin-T, High Sensitivity 1,022(H) <=14 ng/L [facility] Comment: This patient's troponin T [...] can be found in the [facility] Laboratory Test Catalog Troponin - [facility] Laboratory Test Catalog Reference: Fourth [place] Definition of Myocardial Infarction. Journal of the [place] [employer] 2018;72:9917-0071 Blood 05/12/2023 2:05 PM EDT 05/12/2023 2:14 PM EDT Narrative Resulting Agency Comment Spec In Lab Alirio Hudson MD CHEMISTRY ORDERABLE S Performing Organization Address [facility]/ZIP Co de Phone Number [facility] [place] [address] * (ABNORMAL) Hemoglobin (05/12/2023 2:05 PM EDT) Hemoglobin 8.5(L) 11.7 - 15.5 g/dL [facility] Blood 05/12/2023 2:05 PM EDT 05/12/2023 2:14 PM EDT Narrative Resulting Agency Comment Spec In Lab Alirio Hudson MD HEMATOLOGY ORDERABL ES Performing Organization Address [facility] Co de Phone Number [facility] [place] [address] * Potassium (05/12/2023 2:05 PM EDT) Potassium 3.9 3.5 - 5.0 mmol/L [facility] Comment: Please note: ??Patients with [...] S Performing Organization Address [facility] Co de Phone Number [facility] [place] [address] * (ABNORMAL) BLOOD GAS 2 ARTERIAL (05/12/2023 11:05 AM EDT) pH, Arterial 7.34(L) 7.35 - 7.45 [facility] PCO2, Arterial 42 35 - 45 mmHg [facility] PO2, Arterial 73(L) 85 - 104 mmHg [facility] Bicarbonate, Arterial 22.1 20.0 - 26.0 mmol/L [facility] Base Excess, Arterial -3.6(L) -3.0 - 3.0 mmol/L [facility] Hgb Blood Gas 9.3(L) 11.7 - 15.5 g/dL [facility] Oxyhemoglobin, Arterial 89.3(L) 94.0 - 97.0 % [facility] Carboxyhemoglob in, Arterial 0.2 % [facility] Comment: Nonsmokers: 0.5-1.5% COHB Smokers: Variable, but usually less than 10% Toxic: 20-30% COHB Lethal: Greater than 60% COHB Methemoglobin, Arterial 0.9 <=1.5 % [facility] Na Whole Blood 131(L) 135 - 145 mmol/L [facility] K Whole Blood 3.8 3.5 - 5.0 mmol/L [facility] Comment: Please note: Patients with WBC >100,000 may have falsely elevated Potassium levels. Contact the Clinical Chemistry Laboratory if there are any questions. ICa Whole Blood 1.04(L) 1.15 - 1.33 mmol/L [facility] Comment: Note: ??Total bilirubin higher than 20 mg/dL may lead to falsely low ionized calcium. CL Whole Blood 96(L) 98 - 107 mmol/L [facility] Gluc Whole Bld 152 65 - 199 mg/dL [facility] Comment:Diabetes: >=200 mg/d L plus symptoms. Lactate WB 2.8(H) 0.5 - 2.2 mmol/L [facility] FIO2 Art 40 % [facility] PF Ratio Art 182 [facility] Blood 05/12/2023 11:0 5 AM EDT 05/12/2023 11:05 AM EDT Alirio Hudson MD POINT OF CARE TEST ORDERABLES [facility] [place] [address] * (ABNORMAL) BLOOD GAS 2 ARTERIAL (05/12/2023 10:14 AM EDT) pH, Arterial 7.18(Criti gabrielle) 7.35 - 7.45 [facility] Comment:Noted by instrumentation instructor. PCO2, Arterial 45 35 - 45 mmHg [facility] PO2, Arterial 186(H) 85 - 104 mmHg [facility] Bicarbonate, Arterial 16.2(L) 20.0 - 26.0 mmol/L [facility] Base Excess, Arterial -12.2(L) -3.0 - 3.0 mmol/L [facility] Hgb Blood Gas 10.0(L) 11.7 - 15.5 g/dL [facility] Oxyhemoglobin, Arterial 97.0 94.0 - 97.0 % [facility] Carboxyhemoglob in, Arterial 0.2 % [facility] Comment: Nonsmokers: 0.5-1.5% COHB Smokers: Variable, but usually less than 10% Toxic: 20-30% COHB Lethal: Greater than 60% COHB Methemoglobin, Arterial 0.9 <=1.5 % [facility] Na Whole Blood 129(L) 135 - 145 mmol/L [facility] K Whole Blood 3.6 3.5 - 5.0 mmol/L [facility] Comment: Please note: Patients with WBC >100,000 may have falsely elevated Potassium levels. Contact the Clinical Chemistry Laboratory if there are any questions. ICa Whole Blood 1.10(L) 1.15 - 1.33 mmol/L [facility] Comment: Note: ??Total bilirubin higher than 20 mg/dL may lead to falsely low ionized calcium. CL Whole Blood 97(L) 98 - 107 mmol/L [facility] Gluc Whole Bld 161 65 [...] ORDERABLES Performing Organization Address [facility] [place] [address] * EKG 12 Lead (05/12/2023 10:10 AM EDT) Ventricular rate 116 BPM MUSE SYSTEM Atrial Rate 116 BPM MUSE SYSTEM P-R Interval 158 ms MUSE SYSTEM QRS Duration 114 ms MUSE SYSTEM Q-T Interval 348 ms MUSE SYSTEM QTC Calculated (Bezet) 483 ms MUSE SYSTEM Calculated P Gilsum 37 degrees MUSE SYSTEM Calculated R [place] 31 degrees MUSE SYSTEM Calculated T Gilsum -138 degrees MUSE SYSTEM INTERPRETATION Sinus tachycardia with intermittent aberrant ventricular conduction Possible Left atrial enlargement Incomplete left bundle block Left ventricular hypertrophy with repolarization abnormality ( Sokolow-Orozco , [place] product ) ST & T wave abnormality in Inferolateral leads Abnormal ECG When compared with ECG of 10-MAY-2023 13:16, ST & T wave abnormality is more pronounced in inferolateral leads I personally reviewed the tracing and edited the fellows interpretation Confirmed by fellow MD Anuja, Jim ([id number]) on 05/12/2023 1:04:20 PM Confirmed by MD Mono, Eleni ([id number]) on 05/12/2023 9:28:34 PM MUSE SYSTEM 05/12/2023 10:1 0 AM EDT 05/12/2023 9:28 PM EDT Alirio Hudson MD ECG ORDERABLES Performing Organization Address [facility] Co de Phone Number MUSE SYSTEM [...] questions please contact the health career and technology education teacher that requested your imaging first. ? Electronically signed by: Chyna Johnson MD, [facility] ??([phone]), at 05/12/2023 10:08 AM Narrative 05/12/2023 10:08 AM EDT EXAMINATION: XR CHEST ONE VIEW CLINICAL HISTORY: Post TAVR TECHNIQUE: 1 view of the chest COMPARISON: Chest radiograph from earlier today FINDINGS: Interval placement of endotracheal tube with tip terminating 2 cm above the shira. Interval placement of enteric tube projecting along the expected course of the esophagus and outside the cbqqe-bn-rofi. Interval retraction of right IJ approach pulmonary [...] expected course ofthe esophagus and outside the mcmts-vh-aywd. Interval retraction of right IJ approach pulmonary [...] have questions please contactthe health career and technology education teacher that requested your imaging first. Electronically signed by: Chyna Johnson MD, [facility]([phone]), at 05/12/2023 10:08 AM Alirio Hudson MD IMG DX ORDERABLES * ECHO LMTD W/O CONTRAST W LMTD SPEC DOPP COLOR DOPP (05/12/2023 9:23 AM EDT) EF 20 [facility] SYSTEM Anatomical Region Laterality Modality Cardiac Other 05/12/2023 7:33 AM EDT Narrative 05/12/2023 10:18 AM EDT ? Echocardiogram Report Name: PURNIMA THACKER ?Study Date: 05/12/2023 07:33 AMBP: 96/63 mmHg ? Patient Location: [address] : 1955 ? Height: 154 cm ? Account: [id number] Age: 67 yrs ? Weight: 75 kg Gender: Female ?BSA: 1.7 m2 Ordering Physician: RADHA HOLLINS Referring Physician: RADHA HOLLINS Performed By: Dilma Bee RDCS Reason For Study: Guidance for TAVR procedure Exam Location: [facility]. Interpretation Summary PRE TAVR: There [...] mL/m2. POST TAVR: Normal function of the bjzkw-ri-tzakp prosthesis. See below for hemodynamic parameters. Slight improvement in left and right ventricular systolic function. LVEF now 20-25%. No pericardial effusion. See report for additional findings. Procedure Limited - 74371. Doppler - 35699. Color Doppler - 88049. Left Ventricle Left ventricle is of normal [...] Date: 307:33 AMBP: 96/63 mmHg Patient Location: [address] : 1955 Height: 154 cm Account: [id number] Age: 67 yrs Weight: 75 kg Gender: Female BSA: 1.7 m2 Ordering Physician: RADHA HOLLINS Referring Physician: RADHA HOLLINS Performed By: Dilma Bee RDCS Reason For Study: Guidance for TAVR procedure Exam Location: [facility]. Interpretation Summary PRE TAVR: There [...] 28mL/m2. POST TAVR: Normal function of the vezop-pf-ybbmi prosthesis. See belowfor hemodynamic parameters. Slight improvement in left and right ventricularsystolic function. LVEF now 20-25%. No pericardial effusion. See report for additional findings. Procedure Limited - 35040. Doppler - 74138. Color Doppler - 83241. Left Ventricle Left ventricle is of normal [...] Modality Other Narrative 05/12/2023 2:37 PM EDT ?[facility] ? Cardiac Catheterization/Intervention Report ? Patient Name: Purnima Thacker. ? Procedure Date: 05/12/2023 ? A #: [id number] ? Primary Physician: Zachary, Antelmo De La Fuente ? Case #: [id number] ? File Name: [id number] ? Catheterization Order Number: [id number] ? [facility] ? Final Report [place], [place] ? Patient Name: ? Purnima M. Kirstie ? ID#: ?[id number] ? : ?1955 ? Procedure Date: ? [...] Device Deployment ?* Temporary Pacemaker Insertion In [employer] [facility] ?* Endotracheal Intubation By Non-Cath Physician [...] guide. ??A premounted 4.00 x 30 mm [place] (MINNA) was ? deployed with a maximum [...] calculated STS risk score was 30.1%. A refww-kg-dkyse ?procedure was performed on the pre-existing bioprosthetic stented ?prosthesis. The priority of the zemli-xk-thlch procedure was Elective. ?The procedure was performed [...] Lai 3 Ultra RESILIA 23 mm THV (s/d=[id number]) transcatheter ?valve was inserted using standard technique. [...] was it given in the ?clinical laboratory aide. ?Recommended anti-platelet/anti-thrombotic regimen: ?Continue aspirin 81 mg daily for indefinitely. ?These recommendations are made at the time of the intervention. Patient ?and provider preferences or a changing clinical situation may require ?modification of this regimen. Consult [facility] Interventional Cardiology for ?questions. ? Conclusions: ?* [...] regimen. ? Comments: ?Successful right transfemoral TAVR Pfbbx-cj-Sjubt with a 23 mm Lai 3 ?THV. [...] site angiography, ?temporary pacemaker in clinical laboratory aide, intubation-non cath physician, vascular ?closure device, transthoracic echo ??and TAVR. Dr. Alirio Hudson M.D. ?performed the left heart catheterization, access site angiography, ?temporary pacemaker in clinical laboratory aide, vascular closure device, transthoracic ?echo , TAVR and CPR during cath. Dr. Lynda Mcgowan M.D. performed the ABG, ?anesthesia and intubation-non cath physician. ? Antelmo Sharma M.D. ? Electronically Signed by: Antelmo Sharma M.D. ? Report Finalized: 05/12/2023 ??14:31 ? Report Last Ammended: 07/01/2023 ??11:30 ? Procedure Note Antelmo Sharma MD - 07/01/2023 [facility] Cardiac Catheterization/Intervention Report Patient Name: Purnima Thacker Procedure Date: 05/12/2023 A #: [id number] Primary Physician: Antelmo Sharma Case #: [id number] File Name: [id number] Catheterization Order Number: [id number] [facility] FinalReport [place], [place] Patient Name: Purnima Thacker ID#:[id number] :[id number] Procedure Date: May 12, 2023 Case #: [id number] Room: 6 Case Physicians: Antelmo Sharma M.D. Start: 08:03 Alirio Hudson M.D. Admission:05/08/2023 Lynda Mcgowan M.D. Discharge:05/22/2023 Fellow: Rebekah Tejeda M.D. Referring Physician: Mario Alberto Chin M.D. 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 A oupbg-xu-oyomb procedure was performed on the pre-existing bioprosthetic stented prosthesis. The priority of the eyole-en-ibloy procedure wasElective. The procedure was performed under Moderate sedation performed byLynda Mcgowan M.D. (see anesthesia report for additional details). Alirio Hudson M.D. participated in the case (see Cardiac Surgery reportfor additional details). The TAVR sheath was a 14 Fr Corona eSheath Introducer and theaccess site was femoral. Rapid ventricular pacing was performed. An Corona Lai 3 Ultra RESILIA 23 mm THV (s/x=[id number])transcatheter valve was inserted using standard technique. The [...] nor was it given inthe clinical laboratory aide. Recommended anti-platelet/anti-thrombotic regimen: Continue aspirin 81 mg daily for indefinitely. These recommendations are made at the time of the intervention.Patient and provider preferences or a changing clinical situation mayrequire modification of this regimen. Consult [facility] Interventional Cardiologyfor questions. Conclusions: * Nonobstructive disease [...] this regimen. Comments: Successful right transfemoral TAVR Wjpfe-xv-Sdben with a 23 mmSapien 3 THV. We [...] site angiography, temporary pacemaker in clinical laboratory aide, intubation-non cath physician,vascular closure device, transthoracic echo and TAVR. Dr. Alirio Hudson M.D. performed the left heart catheterization, access site angiography, temporary pacemaker in clinical laboratory aide, vascular closure device,transthoracic echo , TAVR and [...] POC 7.20(Crit ical) 7.35 - 7.45 [facility] Comment:Critical value OK, C C Lab. pCO2, POC 42 35 - 45 mmHg [facility] pO2, POC 260(H) 85 - 104 mmHg [facility] Base Excess, POC -11.0(L) -3.0 - 3.0 mmol/L [facility] Bicarbonate, POC 16.7(L) 20.0 - 26.0 mmol/L [facility] Sodium, POC 129(L) 135 - 145 mmol/L [facility] POC Potassium 3.8 3.5 - 5.0 mmol/L [facility] Ionized Calcium, POC 1.12(L) 1.15 - 1.33 mmol/L [facility] POC Hematocrit 23.0(L) 34.0 - 45.0 % [facility] POC Calc Hgb 7.8(L) 11.2 - 15.7 g/dL [facility] Comment:The calculation of h emoglobin from hematocrit assumes a normal MCHC. POC Bgas Loc CC Lab [facility] Blood 05/12/2023 8:50 AM EDT 05/13/2023 12:00 PM EDT Alirio Hudson MD CHEMISTRY ORDERABLE S [facility] [place] [address] * (ABNORMAL) Point of Care Blood Gas Historical (05/12/2023 8:10 AM EDT) pH, POC 7.27(Crit ical) 7.35 - 7.45 [facility] Comment:Critical value OK, C C Lab. pCO2, POC 37 35 - 45 mmHg [facility] pO2, POC 29(Critic al) 85 - 104 mmHg [facility] Comment:Critical value OK, C C Lab. Base Excess, POC -10.0(L) -3.0 - 3.0 mmol/L [facility] Bicarbonate, POC 16.7(L) 20.0 - 26.0 mmol/L [facility] Sodium, POC 123(L) 135 - 145 mmol/L [facility] POC Potassium 4.0 3.5 - 5.0 mmol/L [facility] Ionized Calcium, POC 1.12(L) 1.15 - 1.33 mmol/L [facility] POC Hematocrit 27.0(L) 34.0 - 45.0 % [facility] POC Calc Hgb 9.2(L) 11.2 - 15.7 g/dL [facility] Comment:The calculation of h emoglobin from hematocrit assumes a normal MCHC. POC Bgas Loc CC Lab [facility] Blood 05/12/2023 8:10 AM EDT 05/13/2023 12:00 PM EDT Alirio Hudson MD CHEMISTRY ORDERABLE S Performing Organization Address City/[facility]/ZIP Co de Phone Number [facility] [place] [address] * (ABNORMAL) Lactate, whole blood, send to lab ([facility]) (05/12/2023 7:00 AM EDT) Lactate WB 2.4(H) 0.5 - 2.2 mmol/L [facility] Blood 05/12/2023 7:00 AM EDT 05/12/2023 7:09 AM EDT Narrative Resulting Agency Comment Spec In Lab Radha Hollins MD CHEMISTRY ORDERABL ES Performing Organization Address City/[facility]/ZIP Co de Phone Number [facility] [place] [address] * (ABNORMAL) Comprehensive metabolic panel (non-fasting) (05/12/2023 6:00 AM EDT) Glucose 167 65 - 199 mg/dL [facility] Comment:Diabetes: >=200 mg/d L plus symptoms Blood Urea Nitrogen 67(H) 8 - 18 mg/dL [facility] Creatinine 2.01(H) 0.70 - 1.20 mg/dL [facility] Sodium 131(L) 135 - 145 mmol/L [facility] Potassium 4.3 3.5 - 5.0 mmol/L [facility] Comment: Please note: ??Patients with WBC >100,000 may have falsely elevated Potassium levels. ??For accurate Potassium quantification in these patients send serum separator tube (gold top) for subsequent determinations. ??Contact the Clinical Chemistry Laboratory if there are any questions. Chloride 97(L) 98 - 107 mmol/L [facility] Carbon Dioxide 14(L) 22 - 31 mmol/L [facility] Anion Gap 20(H) 5 - 15 mmol/L [facility] Calcium 8.6 8.5 - 10.5 mg/dL [facility] Protein, Total 6.3 6.1 - 8.0 g/dL [facility] Albumin 3.5 3.2 - 5.2 g/dL [facility] Aspartate Aminotransferase 1,435(H) 0 - 30 unit/L [facility] Alanine Aminotransferase 1,174(H) 0 - 30 unit/L [facility] Alkaline Phosphatase 100 35 - 105 unit/L [facility] Bilirubin, Total 0.9 0.2 - 1.3 mg/dL [facility] Est Glomerular Filtration Rate 27(L) >=60 mL/min/1. 73 m?? [facility] Comment: This patient's estimated GFR [...] ES Performing Organization Address [facility] Co de Phone Number [facility] [place] [address] * (ABNORMAL) Coox2 (05/12/2023 5:08 AM EDT) pO2, Coox 24 mmHg [facility] Hgb Blood Gas 10.4(L) 11.7 - 15.5 g/dL [facility] Oxyhemoglobin, Coox 30.7 % [facility] Carboxyhemoglo bin, Coox 0.3 % [facility] Comment: Nonsmokers: 0.5-1.5% COHB Smokers: Variable, but usually less than 10% Toxic: 20-30% COHB Lethal: Greater than 60% COHB Methemoglobin, Coox 0.8 <=1.5 % [facility] Source Coox Mixed Venous [facility] Blood 05/12/2023 5:08 AM EDT 05/12/2023 5:08 AM EDT Radha Hollins MD POINT OF CARE TEST ORDERABLES Performing Organization Address [facility] Co de Phone Number [facility] [place] [address] * (ABNORMAL) Coox2 (05/12/2023 3:21 AM EDT) pO2, Coox 25 mmHg [facility] Hgb Blood Gas 10.8(L) 11.7 - 15.5 g/dL [facility] Oxyhemoglobin, Coox 32.7 % [facility] Carboxyhemoglo bin, Coox 0.3 % [facility] Comment: Nonsmokers: 0.5-1.5% COHB Smokers: Variable, but usually less than 10% Toxic: 20-30% COHB Lethal: Greater than 60% COHB Methemoglobin, Coox 0.7 <=1.5 % [facility] Source Coox Mixed Venous [facility] Blood 05/12/2023 3:21 AM EDT 05/12/2023 3:21 AM EDT Radha Hollins MD POINT OF CARE TEST ORDERABLES [facility] [place] [address] * (ABNORMAL) BLOOD GAS 2 ARTERIAL (05/12/2023 3:18 AM EDT) pH, Arterial 7.34(L) 7.35 - 7.45 [facility] PCO2, Arterial 30(L) 35 - 45 mmHg [facility] PO2, Arterial 72(L) 85 - 104 mmHg [facility] Bicarbonate, Arterial 16.0(L) 20.0 - 26.0 mmol/L [facility] Base Excess, Arterial -9.8(L) -3.0 - 3.0 mmol/L [facility] Hgb Blood Gas 11.0(L) 11.7 - 15.5 g/dL [facility] Oxyhemoglobin, Arterial 89.8(L) 94.0 - 97.0 % [facility] Carboxyhemoglob in, Arterial 0.3 % [facility] Comment: Nonsmokers: 0.5-1.5% COHB Smokers: Variable, but usually less than 10% Toxic: 20-30% COHB Lethal: Greater than 60% COHB Methemoglobin, Arterial 0.7 <=1.5 % [facility] Na Whole Blood 131(L) 135 - 145 mmol/L [facility] K Whole Blood 4.2 3.5 - 5.0 mmol/L [facility] Comment: Please note: Patients with WBC >100,000 may have falsely elevated Potassium levels. Contact the Clinical Chemistry Laboratory if there are any questions. ICa Whole Blood 1.12(L) 1.15 - 1.33 mmol/L [facility] Comment: Note: ??Total bilirubin higher than 20 mg/dL may lead to falsely low ionized calcium. CL Whole Blood 100 98 - 107 mmol/L [facility] Gluc Whole Bld 160 65 - 199 mg/dL [facility] Comment:Diabetes: >=200 mg/d L plus symptoms. Lactate WB 2.7(H) 0.5 - 2.2 mmol/L [facility] Flow Art 5.0 LPM [facility] Blood 05/12/2023 3:18 AM EDT 05/12/2023 3:18 AM EDT Radha Hollins MD POINT OF CARE TEST ORDERABLES Performing Organization Address City/[facility] Co de Phone Number [facility] [place] [address] * (ABNORMAL) Coox2 (05/12/2023 1:14 AM EDT) pO2, Coox 28 mmHg [facility] Hgb Blood Gas 10.9(L) 11.7 - 15.5 g/dL [facility] Oxyhemoglobin, Coox 37.3 % [facility] Carboxyhemoglo bin, Coox 0.3 % [facility] Comment: Nonsmokers: 0.5-1.5% COHB Smokers: Variable, but usually less than 10% Toxic: 20-30% COHB Lethal: Greater than 60% COHB Methemoglobin, Coox 0.5 <=1.5 % [facility] Source Coox Mixed Venous [facility] Blood 05/12/2023 1:14 AM EDT 05/12/2023 1:14 AM EDT Radha Hollins MD POINT OF CARE TEST ORDERABLES Performing Organization Address [facility] Co de Phone Number [facility] [place] [address] * (ABNORMAL) BLOOD GAS 2 ARTERIAL (05/12/2023 1:06 AM EDT) pH, Arterial 7.34(L) 7.35 - 7.45 [facility] PCO2, Arterial 30(L) 35 - 45 mmHg [facility] PO2, Arterial 81(L) 85 - 104 mmHg [facility] Bicarbonate, Arterial 15.7(L) 20.0 - 26.0 mmol/L [facility] Base Excess, Arterial -10.1(L) -3.0 - 3.0 mmol/L [facility] Hgb Blood Gas 11.0(L) 11.7 - 15.5 g/dL [facility] Oxyhemoglobin, Arterial 92.3(L) 94.0 - 97.0 % [facility] Carboxyhemoglob in, Arterial 0.2 % [facility] Comment: Nonsmokers: 0.5-1.5% COHB Smokers: Variable, but usually less than 10% Toxic: 20-30% COHB Lethal: Greater than 60% COHB Methemoglobin, Arterial 0.6 <=1.5 % [facility] Na Whole Blood 131(L) 135 - 145 mmol/L [facility] K Whole Blood 4.2 3.5 - 5.0 mmol/L [facility] Comment: Please note: Patients with WBC >100,000 may have falsely elevated Potassium levels. Contact the Clinical Chemistry Laboratory if there are any questions. ICa Whole Blood 1.13(L) 1.15 - 1.33 mmol/L [facility] Comment: Note: ??Total bilirubin higher than 20 mg/dL may lead to falsely low ionized calcium. CL Whole Blood 99 98 - 107 mmol/L [facility] Gluc Whole Bld 132 65 - 199 mg/dL [facility] Comment:Diabetes: >=200 mg/d L plus symptoms. Lactate WB 2.7(H) 0.5 - 2.2 mmol/L [facility] Flow Art 5.0 LPM [facility] Blood 05/12/2023 1:06 AM EDT 05/12/2023 1:06 AM EDT Radha Hollins MD POINT OF CARE TEST ORDERABLES [facility] [place] [address] * (ABNORMAL) Differential, Automated (05/12/2023 1:05 AM EDT) Neutrophil % 83.3 % [facility] Neutrophil Absolute 7.49(H) 1.70 - 6.10 x10(3)/mc L [facility] Lymph % 7.1 % [facility] Lymphocytes Abs 0.6(L) 0.9 - 3.2 x10(3)/mc L [facility] Monocyte % 8.9 % [facility] Monocyte Abs 0.8 0.3 - 0.9 x10(3)/mc L [facility] Eos % 0.0 % [facility] Eosinophils Abs 0.0 0.0 - 0.4 x10(3)/ L [facility] Basophil % 0.1 % [facility] Baso Absolute 0.0 0.0 - 0.1 x10(3)/ L [facility] Immature Gran % 0.60 % [facility] Comment: Immature granulocytes(IG's)percentage and absolute count will include metamyelocytes, myelocytes, and promyelocytes. Blood smears from CBCs yielding IG's will be scanned manually for concordance. If this scan disagrees with the automated IG or if promyelocytes are noted, a manual differential will be performed. Immature Gran Absolute 0.05(H) 0.00 - 0.04 x10(3)/ L [facility] Blood 05/12/2023 1:05 AM EDT 05/12/2023 1:15 AM EDT Narrative Resulting Agency Comment Spec In Lab Gianni Fletcher MD HEMATOLOGY ORDERABLE S [facility] [place] [address] * (ABNORMAL) Hemogram (05/12/2023 1:05 AM EDT) White Blood Cell 9.0 4.0 - 9.5 x10(3)/ L [facility] Red Blood Cell 3.01(L) 4.00 - 5.21 x10(6)/ L [facility] Hemoglobin 9.8(L) 11.7 - 15.5 g/dL [facility] Hematocrit 28.7(L) 35.7 - 45.8 % [facility] Mean Cell Volume 95.3(H) 82.6 - 94.4 fL [facility] Mean Cell Hemoglobin 32.6(H) 27.1 - 32.0 pg [facility] Mean Cell Hemoglobin Concentration 34.1 31.7 - 35.0 g/dL [facility] Platelet 186 145 - 357 x10(3)/ L [facility] RDW Standard Deviation 43.7 37.0 - 46.0 fL [facility] RDW coefficient of variation 12.7 11.5 - 14.1 % [facility] Mean Platelet Volume 10.3 7.6 - 12.9 fL [facility] NRBC% auto 0.0 % [facility] NRBC Absolute 0.000 0.000 - 0.000 x10(3)/mc L [facility] Blood 05/12/2023 1:05 AM EDT 05/12/2023 1:15 AM EDT Narrative Resulting Agency Comment Spec In Lab Gianni Fletcher MD HEMATOLOGY ORDERABLE S [facility] [place] [address] * (ABNORMAL) Comprehensive metabolic panel (non-fasting) (05/12/2023 1:05 AM EDT) Glucose 141 65 - 199 mg/dL [facility] Comment:Diabetes: >=200 mg/d L plus symptoms Blood Urea Nitrogen 63(H) 8 - 18 mg/dL [facility] Creatinine 1.86(H) 0.70 - 1.20 mg/dL [facility] Sodium 131(L) 135 - 145 mmol/L [facility] Potassium 4.4 3.5 - 5.0 mmol/L [facility] Comment: Please note: ??Patients with WBC >100,000 may have falsely elevated Potassium levels. ??For accurate Potassium quantification in these patients send serum separator tube (gold top) for subsequent determinations. ??Contact the Clinical Chemistry Laboratory if there are any questions. Chloride 96(L) 98 - 107 mmol/L [facility] Carbon Dioxide 14(L) 22 - 31 mmol/L [facility] Anion Gap 21(H) 5 - 15 mmol/L [facility] Calcium 9.0 8.5 - 10.5 mg/dL [facility] Protein, Total 6.6 6.1 - 8.0 g/dL [facility] Albumin 3.9 3.2 - 5.2 g/dL [facility] Aspartate Aminotransferase 1,227(H) 0 - 30 unit/L [facility] Alanine Aminotransferase 1,097(H) 0 - 30 unit/L [facility] Alkaline Phosphatase 108(H) 35 - 105 unit/L [facility] Bilirubin, Total 1.0 0.2 - 1.3 mg/dL [facility] Est Glomerular Filtration Rate 29(L) >=60 mL/min/1. 73 m?? [facility] Comment: This patient's estimated GFR [...] Radha Hollins MD CHEMISTRY ORDERABL ES [facility] [place] [address] * XR Chest One View (05/12/2023 1:00 [...] questions please contact the health career and technology education teacher that requested your imaging first. ? [...] have questions please contactthe health career and technology education teacher that requested your imaging first. Radha Hollins MD IMG DX ORDERABLES * (ABNORMAL) Coox2 (05/12/2023 12:30 AM EDT) pO2, Coox 22 mmHg [facility] Hgb Blood Gas 10.9(L) 11.7 - 15.5 g/dL [facility] Oxyhemoglobin, Coox 25.1 % [facility] Carboxyhemoglo bin, Coox 0.3 % [facility] Comment: Nonsmokers: 0.5-1.5% COHB Smokers: Variable, but usually less than 10% Toxic: 20-30% COHB Lethal: Greater than 60% COHB Methemoglobin, Coox 1.4 <=1.5 % [facility] Source Coox Mixed Venous [facility] Blood 05/12/2023 12:3 0 AM EDT 05/12/2023 12:30 AM EDT Radha Hollins MD POINT OF CARE TEST ORDERABLES Performing Organization Address City/State/[facility] Co de Phone Number [facility] [place] [address] * XR Chest One View (05/11/2023 11:45 [...] questions please contact the health career and technology education teacher that requested your imaging first. ? [...] have questions please contactthe health career and technology education teacher that requested your imaging first. Radha Hollins MD IMG DX ORDERABLES * (ABNORMAL) Lactate, whole blood, send to lab ([facility] (05/11/2023 7:40 PM EDT) Lactate WB 4.8(Critic al) 0.5 - 2.2 mmol/L [facility] Comment:Called by: IMM, Read back by: Magdalena Baires, Date/Time:05/11/23 19:54. Blood 05/11/2023 7:40 PM EDT 05/11/2023 7:49 PM EDT Narrative Resulting Agency Comment Spec In Lab Radha Hollins MD CHEMISTRY ORDERABL ES Performing Organization Address City/[facility]/ZIP Co de Phone Number [facility] [place] [address] * Urine culture (05/11/2023 7:22 PM EDT) [facility] Urine Culture 50,000-99,000 cfu/ml Normal mucosal herman Susceptibilit y testing not routinely performed for Coagulase Negative Staphylococcu s species and other Gram Positive organisms from urine. [facility] Clean Catch Urine 05/11/2023 7:22 PM EDT 05/11/2023 8:50 PM EDT Narrative Resulting Agency Comment Spec In Lab Brody Kaplan APRN MICROBIOLOGY - [place] [address] * (ABNORMAL) Urinalysis Microscopic Exam (05/11/2023 7:22 PM EDT) RBC, Urine 2 0 - 4 /HPF [facility] WBC, Urine >100(H) 0 - 5 /HPF [facility] Bacteria, Urine Occasional (A) None /HPF [facility] Squamous Epithelial Cells Raw Data, Urine 5(H) <=4 /HPF [facility] Hyaline Casts, Urine 3(H) 0 - 2 /LPF [facility] Clean Catch Urine 05/11/2023 7:22 PM EDT 05/11/2023 7:31 PM EDT Narrative Resulting Agency Comment Spec In Lab Brody Kaplan DATABASE ADMINISTRATION PROJECT MANAGER URINE ORDERABLES Performing Organization Address [facility] de Phone Number [facility] [place] [address] * (ABNORMAL) Urinalysis with reflex Culture (05/11/2023 7:22 PM EDT) Glucose, Urine Dipstick Negative Negative mg/dL [facility] Protein, Urine Dipstick Trace(A) Negative mg/dL [facility] Bilirubin, Urine Dipstick Negative Negative mg/dL [facility] Comment: Clinical correlation required for positive Urine Bilirubin results as false positive may occur with some drugs and drug related products. If a false positive is suspected a serum total bilirubin should be considered if clinically indicated. Urobilinogen, Urine Dipstick Normal Normal mg/dL [facility] pH, Urn (dipstick) 5.0 5.0 - 8.0 [facility] Blood, Urine Dipstick Trace(A) Negative mg/dL [facility] Ketone, Urine Dipstick Negative Negative mg/dL [facility] Nitrite, Urine Dipstick Negative Negative [facility] Leukocytes, Urine Dipstick Moderate(A) Negative mcL [facility] Appearance, Urine Dipstick Cloudy(A) Clear [facility] Specific [place] Urine Automated >=1.030(A) 1.005 - 1.030 [facility] Color, Urine Dipstick Yellow Yellow [facility] Reflex to Culture Yes [facility] Clean Catch Urine 05/11/2023 7:22 PM EDT 05/11/2023 7:31 PM EDT Narrative Resulting Agency Comment Spec In Lab Brody Kaplan DATABASE ADMINISTRATION PROJECT MANAGER URINE ORDERABLES Performing Organization Address City/[facility] Co de Phone Number [facility] [place] [address] * (ABNORMAL) pro-Brain Natriuretic Peptide (05/11/2023 7:11 PM EDT) NT-proBNP >35,000(H) <=124 pg/mL [facility] Blood 05/11/2023 7:11 PM EDT 05/11/2023 7:26 PM EDT Narrative Resulting Agency Comment Spec In Lab Radha Hollins MD CHEMISTRY ORDERABL ES Performing Organization Address City/[facility]/ZIP Co de Phone Number [facility] [place] [address] * (ABNORMAL) Lactate, whole blood, send to lab ([facility] (05/11/2023 2:47 PM EDT) Lactate WB 2.9(H) 0.5 - 2.2 mmol/L [facility] Blood 05/11/2023 2:47 PM EDT 05/11/2023 2:53 PM EDT Narrative Resulting Agency Comment Spec In Lab Juan Luis Gonzalez MD CHEMISTRY ORDERABLES Performing Organization Address [facility] [place] [address] * (ABNORMAL) CT Angiogram Abdomen & Pelvis [...] questions please contact the health career and technology education teacher that requested your imaging first. ? Electronically signed by: Eileen Gomes MD, [facility] ([phone]), at 05/11/2023 2:42 PM Narrative 05/11/2023 2:42 [...] questions please contact the health career and technology education teacher that requested your imaging first. ? Electronically signed by: Cullen Narayanan MD, [facility] ([phone]), at 05/11/2023 4:37 PM Narrative 05/11/2023 4:37 [...] 610 mm2 Circumference: 88 mm Calcification: Mild Znmbghf-vy-kklmqltr height: Left: 6.2 mm Right: 5.8 mm THORACIC AORTA Description: Normal course and caliber. ??Mild diffuse atherosclerotic changes. No acute aortopathy noted. Beauty Director dimensions: Aortic root: 27.6 mm Max [...] 610 mm2 Circumference: 88 mm Calcification: Mild Vpibijj-ar-xemgenhv height: Left: 6.2 mm Right: 5.8 mm THORACIC AORTA Description: Normal course and caliber. Mild diffuse atheroscleroticchanges. No acute aortopathy noted. Beauty Director dimensions: Aortic root: 27.6 mm Max [...] have questions please contactthe health career and technology education teacher that requested your imaging first. Electronically signed by: Cullen Narayanan MD, [facility]([phone]), at 05/11/2023 4:37 PM Antelmo Sharma MD IMG CT ORDERABLES * (ABNORMAL) Lactate, whole blood, send to lab ([facility] (05/11/2023 9:29 AM EDT) Pathologist [facility] Lactate WB 3.1(H) 0.5 - 2.2 mmol/L [facility] Blood 05/11/2023 9:29 AM EDT 05/11/2023 9:38 AM EDT Narrative Resulting Agency Comment Spec In Lab Juan Luis Gonzalez MD CHEMISTRY ORDERABLES [facility] [place] [address] * (ABNORMAL) Differential, Automated (05/11/2023 4:42 AM EDT) Pathologist [facility] Neutrophil % 78.1 % [facility] Neutrophil Absolute 5.46 1.70 - 6.10 x10(3)/mc L [facility] Lymph % 10.6 % [facility] Lymphocytes Abs 0.7(L) 0.9 - 3.2 x10(3)/ L [facility] Monocyte % 9.6 % [facility] Monocyte Abs 0.7 0.3 - 0.9 x10(3)/[facility] Eos % 0.0 % [facility] Eosinophils Abs 0.0 0.0 - 0.4 x10(3)/[facility] Basophil % 0.4 % [facility] Baso Absolute 0.0 0.0 - 0.1 x10(3)/[facility] Immature Gran % 1.30 % [facility] Comment: Immature granulocytes(IG's)percentage and absolute count will include metamyelocytes, myelocytes, and promyelocytes. Blood smears from CBCs yielding IG's will be scanned manually for concordance. If this scan disagrees with the automated IG or if promyelocytes are noted, a manual differential will be performed. Immature Gran Absolute 0.09(H) 0.00 - 0.04 x10(3)/ L [facility] Blood 05/11/2023 4:42 AM EDT 05/11/2023 4:49 AM EDT Narrative Resulting Agency Comment Spec In Lab Klaudia Reid MD HEMATOLOGY OR DERABLES Performing Organization Address City/State/[facility] Co de Phone Number [facility] [place] [address] * (ABNORMAL) Hemogram (05/11/2023 4:42 AM EDT) White Blood Cell 7.0 4.0 - 9.5 x10(3)/[facility] Red Blood Cell 3.44(L) 4.00 - 5.21 x10(6)/[facility] Hemoglobin 11.1(L) 11.7 - 15.5 g/dL [facility] Hematocrit 32.7(L) 35.7 - 45.8 % [facility] Mean Cell Volume 95.1(H) 82.6 - 94.4 fL [facility] Mean Cell Hemoglobin 32.3(H) 27.1 - 32.0 pg [facility] Mean Cell Hemoglobin Concentration 33.9 31.7 - 35.0 g/dL [facility] Platelet 165 145 - 357 x10(3)/mc L [facility] RDW Standard Deviation 43.1 37.0 - 46.0 fL [facility] RDW coefficient of variation 12.7 11.5 - 14.1 % [facility] Mean Platelet Volume 10.1 7.6 - 12.9 fL [facility] NRBC% auto 0.0 % [facility] NRBC Absolute 0.000 0.000 - 0.000 x10(3)/mc L [facility] Blood 05/11/2023 4:42 AM EDT 05/11/2023 4:49 AM EDT Narrative Resulting Agency Comment Spec In Lab Klaudia Reid MD HEMATOLOGY OR DERABLES Performing Organization Address City/[facility] de Phone Number [facility] [place] [address] * Heparin (unfractionated) Level (05/11/2023 4:42 AM EDT) UF Heparin 0.46 IU/mL [facility] Comment: Heparin (anti-Xa) levels [...] Radha Hollins MD HEMATOLOGY ORDERAB LES [facility] [place] [address] * (ABNORMAL) Comprehensive metabolic panel (non-fasting) (05/11/2023 4:42 AM EDT) Glucose 143 65 - 199 mg/dL [facility] Comment:Diabetes: >=200 mg/d L plus symptoms Blood Urea Nitrogen 42(H) 8 - 18 mg/dL [facility] Creatinine 1.24(H) 0.70 - 1.20 mg/dL [facility] Sodium 134(L) 135 - 145 mmol/L [facility] Potassium 4.6 3.5 - 5.0 mmol/L [facility] Comment: Please note: ??Patients with WBC >100,000 may have falsely elevated Potassium levels. ??For accurate Potassium quantification in these patients send serum separator tube (gold top) for subsequent determinations. ??Contact the Clinical Chemistry Laboratory if there are any questions. Chloride 99 98 - 107 mmol/L [facility] Carbon Dioxide 14(L) 22 - 31 mmol/L [facility] Anion Gap 21(H) 5 - 15 mmol/L [facility] Calcium 9.6 8.5 - 10.5 mg/dL [facility] Protein, Total 7.2 6.1 - 8.0 g/dL [facility] Albumin 3.7 3.2 - 5.2 g/dL [facility] Aspartate Aminotransferase 144(H) 0 - 30 unit/L [facility] Comment:result rechecked-ssc Alanine Aminotransferase 130(H) 0 - 30 unit/L [facility] Comment:result rechecked-ssc Alkaline Phosphatase 72 35 - 105 unit/L [facility] Bilirubin, Total 0.8 0.2 - 1.3 mg/dL [facility] Est Glomerular Filtration Rate 48(L) >=60 mL/min/1. 73 m?? [facility] Comment: This patient's estimated GFR [...] MD CHEMISTRY ORDERABL ES Performing Organization Address City/[facility]/ZIP Co de Phone Number [facility] [place] [address] * EKG 12 Lead (05/10/2023 1:16 PM EDT) Ventricular rate 118 BPM MUSE SYSTEM Atrial Rate 118 BPM MUSE SYSTEM P-R Interval 152 ms MUSE SYSTEM QRS Duration 104 ms MUSE SYSTEM Q-T Interval 316 ms MUSE SYSTEM QTC Calculated (Bezet) 442 ms MUSE SYSTEM Calculated P Gilsum 29 degrees MUSE SYSTEM Calculated R Gilsum 18 degrees MUSE SYSTEM Calculated T Gilsum -173 degrees MUSE SYSTEM INTERPRETATION Sinus tachycardia [...] Anterior leads Confirmed by MD Villareal Danette ([id number]) on 05/10/2023 8:47:46 PM MUSE SYSTEM 05/10/2023 1:16 PM EDT 05/10/2023 8:47 PM EDT Juan Luis Gonzalez MD ECG ORDERABLES Performing Organization Address City/[facility]/ZIP Co de Phone Number MUSE SYSTEM * Lactate, whole blood, send to lab ([facility]) (05/10/2023 11:52 AM EDT) Lactate WB 1.8 0.5 - 2.2 mmol/L [facility] Blood 05/10/2023 11:5 2 AM EDT 05/10/2023 12:13 PM EDT Narrative Resulting Agency Comment Spec In Lab Juan Luis Gonzalez MD CHEMISTRY ORDERABLES [facility] [place] [address] * XR Chest One View (05/10/2023 11:16 [...] questions please contact the health career and technology education teacher that requested your imaging first. ? Electronically signed by: ALIX RUVALCABA MD, [facility] ([phone]), at 05/10/2023 1:25 PM Narrative 05/10/2023 1:25 [...] have questions please contactthe health career and technology education teacher that requested your imaging first. Electronically signed by: ALIX RUVALCABA MD, [facility]([phone]), at 05/10/2023 1:25 PM Juan Luis Gonzalez MD IMG DX ORDERABLES * EKG 12 Lead (05/10/2023 7:59 AM EDT) Ventricular rate 115 BPM MUSE SYSTEM Atrial Rate 115 BPM MUSE SYSTEM P-R Interval 142 ms MUSE SYSTEM QRS Duration 102 ms MUSE SYSTEM Q-T Interval 322 ms MUSE SYSTEM QTC Calculated (Bezet) 445 ms MUSE SYSTEM Calculated P Gilsum 36 degrees MUSE SYSTEM Calculated R Gilsum 28 degrees MUSE SYSTEM Calculated T Gilsum -119 degrees MUSE SYSTEM INTERPRETATION Sinus tachycardia with frequent Premature ventricular complexes and Fusion complexes ST & T wave abnormality, consider lateral ischemia Abnormal ECG When compared with ECG of 08-MAY-2023 15:51, No significant change was found I personally reviewed the tracing and edited the fellows interpretation Confirmed by fellow MD Welsh Hanyuan ([id number]) on 05/11/2023 6:19:54 AM Confirmed by MD Ugalde Hannah ([id number]) on 05/11/2023 3:18:56 PM MUSE SYSTEM 05/10/2023 7:59 AM EDT 05/11/2023 3:18 PM EDT Radha Hollins MD ECG ORDERABLES MUSE SYSTEM * (ABNORMAL) Differential, Automated (05/10/2023 2:28 AM EDT) Neutrophil % 77.1 % [facility] Neutrophil Absolute 4.01 1.70 - 6.10 x10(3)/mc L [facility] Lymph % 14.0 % [facility] Lymphocytes Abs 0.7(L) 0.9 - 3.2 x10(3)/mc L [facility] Monocyte % 7.7 % [facility] Monocyte Abs 0.4 0.3 - 0.9 x10(3)/ L [facility] Eos % 0.4 % [facility] Eosinophils Abs 0.0 0.0 - 0.4 x10(3)/[facility] Basophil % 0.4 % [facility] Baso Absolute 0.0 0.0 - 0.1 x10(3)/ L [facility] Immature Gran % 0.40 % [facility] Comment: Immature granulocytes(IG's)percentage and absolute count will include metamyelocytes, myelocytes, and promyelocytes. Blood smears from CBCs yielding IG's will be scanned manually for concordance. If this scan disagrees with the automated IG or if promyelocytes are noted, a manual differential will be performed. Immature Gran Absolute 0.02 0.00 - 0.04 x10(3)/ L [facility] Blood 05/10/2023 2:28 AM EDT 05/10/2023 2:57 AM EDT Narrative Resulting Agency Comment Spec In Lab Klaudia Reid MD HEMATOLOGY OR DERABLES [facility] [place] [address] * (ABNORMAL) Hemogram (05/10/2023 2:28 AM EDT) White Blood Cell 5.2 4.0 - 9.5 x10(3)/mc L [facility] Red Blood Cell 3.11(L) 4.00 - 5.21 x10(6)/mc L [facility] Hemoglobin 10.2(L) 11.7 - 15.5 g/dL [facility] Hematocrit 30.2(L) 35.7 - 45.8 % [facility] Mean Cell Volume 97.1(H) 82.6 - 94.4 fL [facility] Mean Cell Hemoglobin 32.8(H) 27.1 - 32.0 pg [facility] Mean Cell Hemoglobin Concentration 33.8 31.7 - 35.0 g/dL [facility] Platelet 151 145 - 357 x10(3)/mc L [facility] RDW Standard Deviation 44.9 37.0 - 46.0 fL [facility] RDW coefficient of variation 12.8 11.5 - 14.1 % [facility] Mean Platelet Volume 9.8 7.6 - 12.9 fL [facility] NRBC% auto 0.0 % [facility] NRBC Absolute 0.000 0.000 - 0.000 x10(3)/mc L [facility] Blood 05/10/2023 2:28 AM EDT 05/10/2023 2:57 AM EDT Narrative Resulting Agency Comment Spec In Lab Klaudia Reid MD HEMATOLOGY OR DERABLES Performing Organization Address City/State/[facility] Co de Phone Number [facility] [place] [address] * (ABNORMAL) Comprehensive metabolic panel (non-fasting) (05/10/2023 2:28 AM EDT) Glucose 100 65 - 199 mg/dL [facility] Comment:Diabetes: >=200 mg/d L plus symptoms Blood Urea Nitrogen 30(H) 8 - 18 mg/dL [facility] Creatinine 0.90 0.70 - 1.20 mg/dL [facility] Sodium 134(L) 135 - 145 mmol/L [facility] Potassium 4.1 3.5 - 5.0 mmol/L [facility] Comment: Please note: ??Patients with WBC >100,000 may have falsely elevated Potassium levels. ??For accurate Potassium quantification in these patients send serum separator tube (gold top) for subsequent determinations. ??Contact the Clinical Chemistry Laboratory if there are any questions. Chloride 102 98 - 107 mmol/L [facility] Carbon Dioxide 20(L) 22 - 31 mmol/L [facility] Anion Gap 12 5 - 15 mmol/L [facility] Calcium 9.3 8.5 - 10.5 mg/dL [facility] Protein, Total 6.4 6.1 - 8.0 g/dL [facility] Albumin 3.7 3.2 - 5.2 g/dL [facility] Aspartate Aminotransferase 24 0 - 30 unit/L [facility] Alanine Aminotransferase 14 0 - 30 unit/L [facility] Alkaline Phosphatase 70 35 - 105 unit/L [facility] Bilirubin, Total 0.5 0.2 - 1.3 mg/dL [facility] Est Glomerular Filtration Rate 70 >=60 mL/min/1. 73 m?? [facility] Comment: This patient's estimated GFR [...] Radha Hollins MD CHEMISTRY ORDERABL ES [facility] [place] [address] * Heparin (unfractionated) Level (05/10/2023 2:28 AM EDT) UF Heparin 0.37 IU/mL [facility] Comment: [...] Radha Hollins MD HEMATOLOGY ORDERAB LES [facility] [place] [address] * (ABNORMAL) Differential, Automated (05/09/2023 4:00 AM EDT) Neutrophil % 81.7 % [facility] Neutrophil Absolute 5.26 1.70 - 6.10 x10(3)/mc L [facility] Lymph % 10.7 % [facility] Lymphocytes Abs 0.7(L) 0.9 - 3.2 x10(3)/mc L [facility] Monocyte % 6.5 % [facility] Monocyte Abs 0.4 0.3 - 0.9 x10(3)/mc L [facility] Eos % 0.5 % [facility] Eosinophils Abs 0.0 0.0 - 0.4 x10(3)/mc L [facility] Basophil % 0.3 % [facility] Baso Absolute 0.0 0.0 - 0.1 x10(3)/mc L [facility] Immature Gran % 0.30 % [facility] Comment: Immature granulocytes(IG's)percentage and absolute count will include metamyelocytes, myelocytes, and promyelocytes. Blood smears from CBCs yielding IG's will be scanned manually for concordance. If this scan disagrees with the automated IG or if promyelocytes are noted, a manual differential will be performed. Immature Gran Absolute 0.02 0.00 - 0.04 x10(3)/mc L [facility] Blood 05/09/2023 4:00 AM EDT 05/09/2023 4:19 AM EDT Narrative Resulting Agency Comment Spec In Lab Klaudia Reid MD HEMATOLOGY OR DERABLES [facility] [place] [address] * (ABNORMAL) Hemogram (05/09/2023 4:00 AM EDT) White Blood Cell 6.4 4.0 - 9.5 x10(3)/mc L [facility] Red Blood Cell 3.15(L) 4.00 - 5.21 x10(6)/mc L [facility] Hemoglobin 10.2(L) 11.7 - 15.5 g/dL [facility] Hematocrit 30.3(L) 35.7 - 45.8 % [facility] Mean Cell Volume 96.2(H) 82.6 - 94.4 fL [facility] Mean Cell Hemoglobin 32.4(H) 27.1 - 32.0 pg [facility] Mean Cell Hemoglobin Concentration 33.7 31.7 - 35.0 g/dL [facility] Platelet 151 145 - 357 x10(3)/mc L [facility] RDW Standard Deviation 44.7 37.0 - 46.0 fL [facility] RDW coefficient of variation 12.8 11.5 - 14.1 % [facility] Mean Platelet Volume 9.4 7.6 - 12.9 fL [facility] NRBC% auto 0.0 % [facility] NRBC Absolute 0.000 0.000 - 0.000 x10(3)/mc L [facility] Blood 05/09/2023 4:00 AM EDT 05/09/2023 4:19 AM EDT Narrative Resulting Agency Comment Spec In Lab Klaudia Reid MD HEMATOLOGY OR DERABLES Performing Organization Address City/[facility]/ZIP Co de Phone Number [facility] [place] [address] * Heparin (unfractionated) Level (05/09/2023 4:00 AM EDT) UF Heparin 0.47 IU/mL [facility] Comment: [...] MD HEMATOLOGY ORDERAB LES Performing Organization Address City/State/[facility] Co de Phone Number [facility] [place] [address] * (ABNORMAL) Comprehensive metabolic panel (non-fasting) (05/09/2023 4:00 AM EDT) Glucose 108 65 - 199 mg/dL [facility] Comment:Diabetes: >=200 mg/d L plus symptoms Blood Urea Nitrogen 31(H) 8 - 18 mg/dL [facility] Creatinine 1.03 0.70 - 1.20 mg/dL [facility] Sodium 137 135 - 145 mmol/L [facility] Potassium 4.4 3.5 - 5.0 mmol/L [facility] Comment: Please note: ??Patients with WBC >100,000 may have falsely elevated Potassium levels. ??For accurate Potassium quantification in these patients send serum separator tube (gold top) for subsequent determinations. ??Contact the Clinical Chemistry Laboratory if there are any questions. Chloride 102 98 - 107 mmol/L [facility] Carbon Dioxide 20(L) 22 - 31 mmol/L [facility] Anion Gap 15 5 - 15 mmol/L [facility] Calcium 9.3 8.5 - 10.5 mg/dL [facility] Protein, Total 6.6 6.1 - 8.0 g/dL [facility] Albumin 3.8 3.2 - 5.2 g/dL [facility] Aspartate Aminotransferase 32(H) 0 - 30 unit/L [facility] Alanine Aminotransferase 18 0 - 30 unit/L [facility] Alkaline Phosphatase 78 35 - 105 unit/L [facility] Bilirubin, Total 0.5 0.2 - 1.3 mg/dL [facility] Est Glomerular Filtration Rate 60 >=60 mL/min/1. 73 m?? [facility] Comment: This patient's estimated GFR [...] ES Performing Organization Address [facility] Co de Phone Number [facility] [place] [address] * (ABNORMAL) pro-Brain Natriuretic Peptide (05/08/2023 4:00 PM EDT) NT-proBNP 25,503(H) <=124 pg/mL [facility] Blood Venous Draw / Unknown 05/08/2023 4:00 PM EDT 05/08/2023 4:25 PM EDT Narrative Resulting Agency Comment Spec In Lab Juan Luis Gonzalez MD CHEMISTRY ORDERABLES Performing Organization Address City/[facility]/ZIP Co de Phone Number [facility] [place] [address] * Magnesium (05/08/2023 4:00 PM EDT) Magnesium 0.82 0.69 - 1.07 mmol/L [facility] Blood 05/08/2023 4:00 PM EDT 05/08/2023 4:06 PM EDT Narrative Resulting Agency Comment Spec In Lab Enrique Chua MD CHEMISTRY ORDERABLES Performing Organization Address [facility] Co de Phone Number [facility] [place] [address] * Potassium (05/08/2023 4:00 PM EDT) Pathologist [facility] Potassium 3.9 3.5 - 5.0 mmol/L [facility] MD CHEMISTRY ORDERABL ES Performing Organization Address [facility] de Phone Number [facility] [place] [address] * Heparin (unfractionated) Level (05/08/2023 4:00 PM EDT) Pathologist [facility] UF Heparin 0.43 IU/mL [facility] Comment: [...] Lab Radha Hollins MD HEMATOLOGY ORDERAB LES [facility] [place] [address] * EKG 12 Lead (05/08/2023 3:51 PM EDT) Pathologist [facility] Ventricular rate 98 BPM MUSE SYSTEM Atrial Rate 98 BPM MUSE SYSTEM P-R Interval 150 ms MUSE SYSTEM QRS Duration 102 ms MUSE SYSTEM Q-T Interval 358 ms MUSE SYSTEM QTC Calculated (Bezet) 457 ms MUSE SYSTEM Calculated P Gilsum 38 degrees MUSE SYSTEM Calculated R Gilsum 48 degrees MUSE SYSTEM Calculated T Gilsum -112 degrees MUSE SYSTEM INTERPRETATION Sinus rhythm with frequent and consecutive Premature ventricular and fusion complexes Septal infarct , age undetermined ST & T wave abnormality, consider anterolateral ischemia Abnormal ECG When compared with ECG of 09-NOV-2022 11:17, T wave inversion now evident in Anterolateral leads Confirmed by MD Harshil, Enrique Bell ([id number]) on 05/10/2023 8:11:46 AM MUSE SYSTEM 05/08/2023 3:51 PM EDT 05/10/2023 8:11 AM EDT Radha Hollins MD ECG ORDERABLES Performing Organization Address City/[facility]/ZIP Co de Phone Number MUSE SYSTEM * (ABNORMAL) Differential, Automated (05/08/2023 11:38 AM EDT) [facility] Neutrophil % 71.3 % [facility] Neutrophil Absolute 2.91 1.70 - 6.10 x10(3)/mc L [facility] Lymph % 19.1 % [facility] Lymphocytes Abs 0.8(L) 0.9 - 3.2 x10(3)/mc L [facility] Monocyte % 9.0 % [facility] Monocyte Abs 0.4 0.3 - 0.9 x10(3)/mc L [facility] Eos % 0.2 % [facility] Eosinophils Abs 0.0 0.0 - 0.4 x10(3)/mc L [facility] Basophil % 0.2 % [facility] Baso Absolute 0.0 0.0 - 0.1 x10(3)/mc L [facility] Immature Gran % 0.20 % [facility] Comment: Immature granulocytes(IG's)percentage and absolute count will include metamyelocytes, myelocytes, and promyelocytes. Blood smears from CBCs yielding IG's will be scanned manually for concordance. If this scan disagrees with the automated IG or if promyelocytes are noted, a manual differential will be performed. Immature Gran Absolute 0.01 0.00 - 0.04 x10(3)/ L [facility] Blood 05/08/2023 11:3 8 AM EDT 05/08/2023 11:44 AM EDT Narrative Resulting Agency Comment Spec In Lab Lincoln Sal MD HEMATOLOGY ORDERA BLES Performing Organization Address City/State/[facility] Co de Phone Number [facility] [place] [address] * (ABNORMAL) Hemogram (05/08/2023 11:38 AM EDT) White Blood Cell 4.1 4.0 - 9.5 x10(3)/ L [facility] Red Blood Cell 3.05(L) 4.00 - 5.21 x10(6)/[facility] Hemoglobin 10.2(L) 11.7 - 15.5 g/dL [facility] Hematocrit 29.6(L) 35.7 - 45.8 % [facility] Mean Cell Volume 97.0(H) 82.6 - 94.4 fL [facility] Mean Cell Hemoglobin 33.4(H) 27.1 - 32.0 pg [facility] Mean Cell Hemoglobin Concentration 34.5 31.7 - 35.0 g/dL [facility] Platelet 136(L) 145 - 357 x10(3)/mc [facility] RDW Standard Deviation 44.3 37.0 - 46.0 fL [facility] RDW coefficient of variation 12.6 11.5 - 14.1 % [facility] Mean Platelet Volume 9.4 7.6 - 12.9 fL [facility] NRBC% auto 0.0 % [facility] NRBC Absolute 0.000 0.000 - 0.000 x10(3)/mc L [facility] Blood 05/08/2023 11:3 8 AM EDT 05/08/2023 11:44 AM EDT Narrative Resulting Agency Comment Spec In Lab Lincoln Sal MD HEMATOLOGY ORDERA BLES Performing Organization Address City/[facility]/ZIP Co de Phone Number [facility] [place] [address] * TSH (05/08/2023 11:38 AM EDT) Thyroid Stimulating Hormone 1.27 0.27 - 4.20 mcIU/mL [facility] Comment: Reference Interval (mcIU/mL): Females: ??First Trimester: 0.23-3.88 ??Second Trimester: 0.22-3.90 ??Third Trimester: 0.44-4.66 Blood 05/08/2023 11:3 8 AM EDT 05/08/2023 11:44 AM EDT Narrative Resulting Agency Comment Spec In Lab Enrique Chua MD CHEMISTRY ORDERABLES Performing Organization Address [facility] Co de Phone Number [facility] [place] [address] * (ABNORMAL) Phosphorus (05/08/2023 11:38 AM EDT) Phosphorus 4.7(H) 2.5 - 4.5 mg/dL [facility] Blood 05/08/2023 11:3 8 AM EDT 05/08/2023 11:44 AM EDT Narrative Resulting Agency Comment Spec In Lab Enrique Chua MD CHEMISTRY ORDERABLES Performing Organization Address [facility] Co de Phone Number [facility] [place] [address] * Magnesium (05/08/2023 11:38 AM EDT) Magnesium 0.76 0.69 - 1.07 mmol/L [facility] Blood 05/08/2023 11:3 8 AM EDT 05/08/2023 11:44 AM EDT Narrative Resulting Agency Comment Spec In Lab Enrique Chua MD CHEMISTRY ORDERABLES Performing Organization Address City/State/[facility] Co de Phone Number [facility] [place] [address] * (ABNORMAL) Basic Metabolic Panel (non-fasting) (05/08/2023 11:38 AM EDT) Glucose 97 65 - 199 mg/dL [facility] Comment:Diabetes: >=200 mg/d L plus symptoms Blood Urea Nitrogen 27(H) 8 - 18 mg/dL [facility] Creatinine 1.02 0.70 - 1.20 mg/dL [facility] Sodium 139 135 - 145 mmol/L [facility] Potassium 4.2 3.5 - 5.0 mmol/L [facility] Comment: Please note: ??Patients with WBC >100,000 may have falsely elevated Potassium levels. ??For accurate Potassium quantification in these patients send serum separator tube (gold top) for subsequent determinations. ??Contact the Clinical Chemistry Laboratory if there are any questions. Chloride 105 98 - 107 mmol/L [facility] Carbon Dioxide 20(L) 22 - 31 mmol/L [facility] Anion Gap 14 5 - 15 mmol/L [facility] Calcium 9.4 8.5 - 10.5 mg/dL [facility] Est Glomerular Filtration Rate 60 >=60 mL/min/1. 73 m?? [facility] Comment: This patient's estimated GFR [...] Resulting Agency Comment Spec In Lab Enrique Cuha MD CHEMISTRY ORDERABLES [facility] [place] [address] * ECHO COMPLETE (05/08/2023 11:02 AM EDT) EF 25 HEARTLAB SYSTEM Anatomical Region Laterality Modality Cardiac Other 05/08/2023 10:0 3 AM EDT Narrative 05/08/2023 11:51 AM EDT ? Echocardiogram Report Name: PURNIMA THACKER ?Study Date: 05/08/2023 10:03 AMBP: 92/64 mmHg ? Patient Location: [facility]^CV29^A : 1955 ? Height: 155 cm ? Account: [id number] Age: 67 yrs ? Weight: 78 kg Gender: Female ?BSA: 1.8 m2 Ordering Physician: ENRIQUE CHUA Referring Physician: MARIO ALBERTO CHIN Performed By: CHUCKIE Canchola Reason For Study: SAVR Stenosis Exam Location: [facility]. Interpretation Summary -Left ventricle is [...] worsening stenosis. Mitral regurgitation is similar. Procedure Complete-[id number]. Satisfactory quality. There is normal sinus rhythm. [...] Date: 0:03 AMBP: 92/64 mmHg Patient Location:[facility]^CV29^A : 1955 Height: 155 cm Account: [id number] Age: 67 yrs Weight: 78 kg Gender: Female BSA: 1.8 m2 Ordering Physician: ENRIQUE CHUA Referring Physician: MARIO ALBERTO CHIN Performed By: CHUCKIE Canchola Reason For Study: SAVR Stenosis Exam Location: [facility]. Interpretation Summary -Left ventricle is [...] suggestsworsening stenosis. Mitral regurgitation is similar. Procedure Complete-[id number]. Satisfactory quality. There is normal sinus rhythm. [...] Narrative Resulting Agency Comment Spec In Lab Enriuqe Chua MD HEMATOLOGY ORDERABLE S [facility] [place] [address] documented in this encounter Visit Diagnoses Diagnosis S/P TAVR (transcatheter aortic valve replacement)- Primary Aortic valve stenosis, etiology of cardiac valve disease unspecified Heart failure with reduced ejection fraction due to heart valve disease Mild coronary artery disease by [facility] 11/09/2022 Mixed connective tissue disease [...] ejection fraction Mild coronary artery disease by [facility] 11/09/2022 Stenosis of prosthetic aortic [...] post-op day 1 in the AM Give [place] if unable to take PO, Routine Group [...] Routine documented in this encounter Care Teams Burning Plant Operator Relationship Specialty Start Date End Date Magdalena Acosta MD [address] [place] [address] PCP - General Family Medicine 02/05/23 documented as of this encounter
--- OUTSIDE RECORDS SUMMARY | 2024-06-20 15:52 | XMS_ITS | Encounter Summary ---
Author Organization [facility] [place] [address] Care Team Providers Care Documentation Analyst Name Role Phone Magdalena Acosta MD Primary Care Provider [phone] Encounter Details Date Type Department Care Team [...] EST Office Visit Hematology and Oncology at [place] [phone] Marekl Borjas MD [facility] DR HEMATOLOGY [place] [address] 11/02/2024 12:00 PM EDT Appoint[place] [address] 11/02/2024 1:00 PM EDT Office [place] [address] Magdalena Peralta MD [facility] [place] [address] 03/01/2025 4:15 PM EDT Office Visit Dermatology at [place] [address] [place] [address] Marek Bonilla MD [address] [place] [address] documented as of this encounter Visit Diagnoses Not on filedocumented in this encounter Care Teams Documentation Analyst Relationship Specialty Start Date End Date Magdalena Acosta MD [address] [place] [address] PCP - General Family Medicine 02/05/23 documented as of this encounter
--- OUTSIDE RECORDS SUMMARY | 2024-06-20 15:52 | XMS_ITS | Encounter Summary ---
[place] [address] Care Team Providers Care Drying Rack Changer Name Role Phone Magdalena Acosta MD Primary Care Provider [phone] Reason for Visit * Reason Comments Skin Lesion Encounter Details Date Type Department Care Team (Late st Contact Info) Description 04/20/2023 10:00 AM EDT Office Visit Dermatology at [address] [phone] Marek Bonilla MD [address] [facility], [place] [address] Seborrheic keratosis Social History Tobacco Use Types [...] and ocular 3. Previously told by bulk plant operator that she had corneal tears from [...] Visit Hematology and Oncology at [place] [address] Markel Borjas MD [facility] [address] [place] [address] 11/02/2024 12:00 PM EDT Appointment Pulmonology at [place] [address] 11/02/2024 1:00 PM EDT Office Visit Rheumatology at [place] [address] Magdalena Peralta MD [facility] [place] [address] 03/01/2025 4:15 PM EDT Office Visit Dermatology at [address] [place] [address] Marek Bonilla MD [address] [facility], [place] [address] documented as of this encounter Visit Diagnoses Diagnosis Seborrheic keratosis Other seborrheic keratosis documented in this encounter Care Teams Drying Rack Changer Relationship Specialty Start Date End Date Magdalena Acosta MD [address] [place] [address] PCP - General Family Medicine 02/05/23 documented as of this encounter
--- OUTSIDE RECORDS SUMMARY | 2024-06-20 15:52 | XMS_ITS | Encounter Summary ---
Author Organization [facility] [place] [address] Care Team Providers Care Separator Operator Shellfish Meats Name Role Phone Deborah Quiroga APRN Primary Care Provider [phone] Reason for Referral * Consultation (Routine) - Closed Specialty Diagnoses / Procedures Referred By Crispin maxwell Referred To Contact Neurology Diagnoses Polyneuropathy Deborah Quiroga APRN [address] [facility] [place] [address] [place] [address] [facility] [address] [place] [phone] Referral ID Status Reason Start Date Expiration Date V isits Requested Visits Authorized [id number] Closed Consult, Test & Treat 10/29/2022 10/29/2023 1 1 Encounter Details Date Type Department Care Team (Latest Contact Info) Description 10/29/2022 Transcribe Orders eDH Incoming Referrals [phone] Deborah Quiroga APRN [address] [facility] [place] [address] [place] [address] Polyneuropathy (Primary Dx) Social History [...] Visit Hematology [place] [address] Markel Borjas MD [facility] [address] [place] [address] 11/02/2024 12:00 PM EDT Appointment [place] [phone] 11/02/2024 1:00 PM EDT Office [place] [phone] Magdalena Peralta MD [facility] [place] [address] 03/01/2025 4:15 PM EDT Office Visit Dermatology at [place] [address] [facility] [place] [phone] Marek Bonilla MD [address] [facility], [place] [address] Scheduled Referrals Name Type Priority Associated Diagnoses Orde r Schedule Referral to Neurology Outpatient Referral Routine Polyneuropathy Ordered: 10/29/2022 documented as of this encounter Visit Diagnoses Diagnosis Polyneuropathy- Primary Unspecified hereditary and idiopathic peripheral neuropathy documented in this encounter Care Teams Separator Operator Shellfish Meats Relationship Specialty Start Date End Date Deborah Quiroga APRN PCP - General Family Medicine 03/24/16 02/04/23 documented as of this encounter
--- OUTSIDE RECORDS SUMMARY | 2024-06-20 15:52 | XMS_ITS | Encounter Summary ---
Author Organization [facility] Address [facility] [place] [address] Care Team Providers Care Sugar Plantation Manager Name Role Phone Magdalena Acosta MD Primary Care Provider [phone] Encounter Details Date Type Department Care Team (Late st Contact Info) Description 04/27/2023 3:00 PM EDT Office [place] [address] Magdalena Peralta MD [facility] [place] [address] Mixed connective tissue disease Social History Tobacco [...] 1:5120 speckled; VIC negative; Myositis panel with BARREL INSPECTOR TIGHT ab 149.1 (positive); Anti U1RNP IgG 119; [...] Visit [place]ology [place] [address] Markel Borjas MD [facility] DR [place] [address] 11/02/2024 12:00 PM EDT [place]oint[place] [address] 11/02/2024 1:00 PM EDT Office [place] [address] Magdalena Peralta MD [facility] [place] [address] 03/01/2025 4:15 PM EDT Office Visit Dermatology at [place] [address] [place] [address] Marek Bonilla MD [address], [place] [address] documented as of this encounter Visit Diagnoses Diagnosis Mixed connective tissue disease Other specified diffuse disease of connective tissue documented in this encounter Care Teams Sugar Plantation Manager Relationship Specialty Start Date End Date Magdalena Acosta MD [address] [place] [address] PCP - General Family Medicine 02/05/23 documented as of this encounter
--- OUTSIDE RECORDS SUMMARY | 2024-06-20 15:52 | XMS_ITS | Encounter Summary ---
Author Organization [facility] [place] [address] Care Team Providers Care Submarine Worker Name Role Phone Deborah Quiroga APRN Primary Care Provider [phone] Encounter Details Date Type Department Care Team (Late st Contact Info) Description 11/09/2022 11:30 AM EDT - 11/09/2022 12:30 PM EDT Surgery [place] [address] Nitesh Escobedo MD [facility] [place] [address] CARDIAC CATHETERIZATION Social History Tobacco Use Types [...] Center 02/05/2023 2:30 PM Marek Bonilla MD [facility] New Medications to be Picked Up None For questions regarding this document or issues relating to this hospitalization on the Medical Service, please contact your inpatient physician through the [facility] Planetarium Technician . Issues afterhours and on weekends will be handled by the Hospitalist staff on-call. * Attachments The following attachments cannot be sent through Care Everywhere. * Coronary Angiogram: Post-op (Niuean) * Right Heart Catheterization: Pulmonary Artery Catheterization: Post-op (Niuean) documented in this encounter Medications at Time of Discharge Medication Sig Dispensed Refills Start Date End Date nystatin (MYCOSTATIN) 100,000 unit/gram Powder Apply topically 2 times daily as needed. 10/22/2022 ZurffTouch Verio test strips Strip USE DAILY 01/03/2022 ZurffToItiva Delica Plus Lancet 33 gauge Misc USE [...] MD - 11/09/2022 11:20 AM EDT . [facility] Interventional Cardiology Adult Pre-Procedure H&P Update: Cardiac Catheterization Purnima Thacker [id number] 1955 Chief Complaint: BONILLA HPI: Purnima Thacker [...] Marrero MD Interventional Cardiology 11/09/22 11:43 AM [facility] [place] Pager: [phone] documented in this encounter Plan of Treatment Upcoming Encounters Date Type Department Care Team (Late st Contact Info) Description 06/23/2024 2:00 PM EST Office Visit [place] [address] Markel Borjas MD [facility] DR [place] [address] 11/02/2024 12:00 PM EDT [place] [address] 11/02/2024 1:00 PM EDT Office [place] [address] Magdalena Peralta MD [facility] [place] [address] 03/01/2025 4:15 PM EDT Office Visit Dermatology at [place] [address] [place] [address] Marek Bonilla MD [address], [place] [address] documented as of this encounter Procedures Procedure Name Priority Date/Time Associated Diagnosis Comments CARDIAC CATHETERIZATION Routine 11/10/19 1:05 PM EDT Aortic valve stenosis, etiology of cardiac valve disease unspecified Cath [facility] Left Heart Cath & Arts W/Inj & Angio Img S&I ([id number]) 11/09/2022 11:51 AM EDT Aortic valve stenosis, etiology of cardiac valve disease unspecified EKG 12-LEAD Routine 11/09/2022 11:17 AM EDT Aortic valve stenosis, etiology of cardiac valve disease unspecified documented in this encounter Results * CARDIAC CATHETERIZATION (11/09/2022 1:05 PM EDT) Anatomical Region Laterality Modality Other Narrative 11/09/2022 2:01 PM EDT ?[facility] ? Cardiac Catheterization/Intervention Report ? Patient Name: Kirstie, Purnima M. ? Procedure Date: 11/09/2022 ? A #: [id number] ? Primary Physician: Nitesh Escobedo ? Case #: [id number] ? File Name: [id number] ? Catheterization Order Number: [id number] ? [facility] ? Final Report [place], [place] ? Patient Name: ? Purnima M. Kirstie ? ID#: ?[id number] ? : ?1955 ? Procedure Date: ? [...] (Bezet) 457 ms MUSE SYSTEM Calculated P [place] 44 degrees MUSE SYSTEM Calculated R [place] 33 degrees MUSE SYSTEM Calculated T [place] 30 degrees MUSE SYSTEM INTERPRETATION Sinus rhythm Occasional Premature ventricular complexes Otherwise normal ECG When compared with ECG of 21-SEP-2016 12:26, Premature ventricular complexes are now Present NM interval has decreased Nonspecific T wave abnormality has replaced inverted T waves in Inferior leads I personally reviewed the tracing and edited the fellows interpretation Confirmed by fellow MD Anitha, Carissa ([id number]) on 11/09/2022 6:17:28 PM Confirmed by Elsa [...] MD) documented in this encounter Care Teams Submarine Worker Relationship Specialty Start Date End Date Deborah Quiroga, CONE SEWER PCP - General Family Medicine 03/24/16 02/04/23 documented as of this encounter
--- OUTSIDE RECORDS SUMMARY | 2024-06-20 15:52 | XMS_ITS | Encounter Summary ---
[place] [address] Care Team Providers Care Scout Leaser Name Role Phone Magdalena Acosta MD Primary Care Provider [phone] Reason for Visit * Reason Comments Annual Exam Encounter Details Date Type Department Care Team (Late st Contact Info) Description 02/05/2023 2:30 PM EDT Office Visit Dermatology at [address] [phone] Marek Bonilla MD [address] [facility], [address] A DERMATOLOGY [place], [place] [phone] Rosacea; Ocular rosacea; Nevus Social History Tobacco [...] cutaneous and ocular 2. Previously told by multimedia assistant that she had corneal tears from [...] Hematology [place] [address] Markel Borjas MD [facility] DR HEMATOLOGY [place] [address] 11/02/2024 12:00 PM EDT Appointment [place] [address] 11/02/2024 1:00 PM EDT Office [place] [address] Magdalena Peralta MD [facility] [place] [address] 03/01/2025 4:15 PM EDT Office Visit Dermatology at [address] [phone] Marek Bonilla MD [address] [facility] [address], [place] A DERMATOLOGY [place], [place] [address] documented as of this encounter Visit Diagnoses Diagnosis Rosacea Ocular rosacea Rosacea Nevus Benign neoplasm of skin, site unspecified documented in this encounter Care Teams Scout Leaser Relationship Specialty Start Date End Date Magdalena Acosta MD [address] [place] [address] PCP - General Family Medicine 02/05/23 documented as of this encounter
--- OUTSIDE RECORDS SUMMARY | 2024-06-20 15:52 | XMS_ITS | Encounter Summary ---
Author Organization [facility] [place] [address] Care Team Providers Care Cognos Analyst Name Role Phone Magdalena Acosta MD Primary Care Provider [phone] Encounter Details Date Type Department Care Team [...] EST Office Visit Hematology and Oncology at [place] [phone] Markel Borjas MD [facility] DR HEMAT[place] [address] 11/02/2024 12:00 PM EDT [place] [address] 11/02/2024 1:00 PM EDT [place] [address] Magdalena Peralta MD [facility] [place] [address] 03/01/2025 4:15 PM EDT Office Visit Dermatology at [place] [address] [place] [address] Marek Bonilla MD [address], [address] [place] [address] documented as of this encounter Visit Diagnoses Not on filedocumented in this encounter Care Teams Cognos Analyst Relationship Specialty Start Date End Date Magdalena Acosta MD [address] [place] [address] PCP - General Family Medicine 02/05/23 documented as of this encounter
--- OUTSIDE RECORDS SUMMARY | 2024-06-20 15:52 | XMS_ITS | Encounter Summary ---
Author Organization [facility] [place] [address] Care Team Providers Care Core Java Engineer Name Role Phone Junaid Deborah Shields APRN Primary Care Provider [phone] Encounter Details Date Type Department Care Team (Latest Contact Info) Description 11/09/2022 10:37 AM EDT - 11/09/2022 4:53 PM EDT Hospital Encounter [place] [address] Nitesh Escobedo MD [facility] [place] [address] Aortic valve stenosis, etiology of cardiac valve [...] PM Marek Bonilla MD [facility] New Medications to be Picked Up None For questions regarding this document or issues relating to this hospitalization on the Medical Service, please contact your inpatient physician through the [facility] Scanning Coordinator . Issues afterhours and on weekends will be handled by the Hospitalist staff on-call. * Attachments The following attachments cannot be sent through Care Everywhere. * Coronary Angiogram: Post-op (Liberian) * Right Heart Catheterization: Pulmonary Artery Catheterization: Post-op (Liberian) documented in this encounter Medications at Time [...] Pre-Procedure H&P Update: Cardiac Catheterization Purnima Thacker [id number] 1955 Chief Complaint: BONILLA HPI: Purnima Thacker [...] [facility] Pager: [phone] documented in this encounter Plan of Treatment Upcoming Encounters Date Type Department Care Team (Late st Contact Info) Description 06/23/2024 2:00 PM EST Office Visit [place] [address] [facility] [address] [place] [address] 11/02/2024 12:00 PM EDT [place] [address] 11/02/2024 1:00 PM EDT [place] [address] [facility] [address] 03/01/2025 4:15 PM EDT Office Visit Dermatology at [place] [address] [place] [address] Marek Bonilla MD [address] [place] [address] documented as of this encounter Procedures Procedure Name Priority Date/Time Associated Diagnosis Comments CARDIAC CATHETERIZATION Routine 11/10/19 23 1:05 PM EDT Aortic valve stenosis, etiology of cardiac valve disease unspecified Cath [facility] Left Heart Cath & Arts W/Inj & Angio Img S&I ([id number]) 11/09/2022 11:51 AM EDT Aortic valve stenosis, etiology of cardiac valve disease unspecified EKG 12-LEAD Routine 11/09/2022 11:17 AM EDT Aortic valve stenosis, etiology of cardiac valve disease unspecified documented in this encounter Results * CARDIAC CATHETERIZATION (11/09/2022 1:05 PM EDT) Anatomical Region Laterality Modality Other Narrative 11/09/2022 2:01 PM EDT ?[facility] ? Cardiac Catheterization/Intervention Report ? Patient Name: Kirstie, Purnima M. ? Procedure Date: 11/09/2022 ? A #: [id number] ? Primary Physician: Nitesh Escobedo ? Case #: [id number] ? File Name: [id number] ? Catheterization Order Number: [id number] ? [facility] ? Final Report [place], [place] ? Patient Name: ? Purnima M. Kirstie ? ID#: ?[id number] ? : ?1955 ? Procedure Date: ? [...] designated as ASA Class III. The [facility] clinical frailty scale ?is 4: Vulnerable. [...] (Bezet) 457 ms MUSE SYSTEM Calculated P [place] 44 degrees MUSE SYSTEM Calculated R [place] 33 degrees MUSE SYSTEM Calculated T [place] 30 degrees MUSE SYSTEM INTERPRETATION Sinus rhythm Occasional Premature ventricular complexes Otherwise normal ECG When compared with ECG of 21-SEP-2016 12:26, Premature ventricular complexes are now Present CO interval has decreased Nonspecific T wave abnormality has replaced inverted T waves in Inferior leads I personally reviewed the tracing and edited the fellows interpretation Confirmed by fellow MD Anitha, Carissa ([id number]) on 11/09/2022 6:17:28 PM Confirmed by Elsa Linares MD ([id number]) on 11/10/2022 3:47:14 PM MUSE SYSTEM 11/09/2022 [...] MD) documented in this encounter Care Teams Core Java Engineer Relationship Specialty Start Date End Date Deborah Quiroga, JUVENILE COURT JUDGE PCP - General Family Medicine 03/24/16 02/04/23 documented as of this encounter
--- OUTSIDE RECORDS SUMMARY | 2024-06-20 15:52 | XMS_ITS | Encounter Summary ---
Author Organization [facility] [place] [address] Care Team Providers Care Model Home Sales Greeter Name Role Phone Magdalena Acosta MD Primary Care Provider [phone] Encounter Details Date Type Department Care Team (Late st Contact Info) Description 05/08/2023 [place] [phone] Luis Felipe Ott MD [facility] [place] [address] Social History Tobacco Use Types Packs/Day Years [...] 0426 Referring Provider: Nitesh Baltazar Patient Location: [facility] Presenting Symptoms per OSH: 67 [...] diuresis with IV furosemide 20 x 1 ([id number] at rheumatology appointment), SpO2 85% on RA -> 95% on 2L NC, HR 120s. Examination significant for decreased breath sounds at the bases. Pertinent Diagnostic Findings: CBC - Hgb 10.5 CMP - Cr 1.1 BNP 40643 HsTrop 1358 Lactate 1.6 D-dimer 1183, CTPE pending CXR demonstrated pulmonary vascular congestion US showed bilateral b lines Bedside echo reportedly similar to prior TTE for LV function OSH Interventions: ASA 324 Heparin gtt Plan: Transfer to [facility] Above recommendations/plans are based on my conversation with the referring provider. I have not personally interviewed or examined this patient. Luis Felipe Ott MD Power Lineworker Received a call from provider emergently at 715am. Mentating well and BP 87/53. HR 108 and diursingwell. They were about to start phenylephrine which I stressed was not a good option given concern for severe and increasing afterload. She is warm on exam, mentating and urinating and we do not need to amrit a BP if those things remain stable. Nico Segura, PGY-6 Power Lineworker [id number] documented in this encounter Plan of Treatment Upcoming Encounters Date Type Department Care Team (Late st Contact Info) Description 06/23/2024 2:00 PM EST Office Visit [place] [address] Markel Borjas MD [facility] DR HEMATOLOGY [place] [address] 11/02/2024 12:00 PM EDT Appointment [place] [address] 11/02/2024 1:00 PM EDT Office [place] [address] Magdalena Peralta MD [facility] [place] [address] 03/01/2025 4:15 PM EDT Office Visit Dermatology at [place] [address] [place] [phone] Marek Bonilla MD [address] [facility] [place] [address] documented as of this encounter Visit Diagnoses Not on filedocumented in this encounter Care Teams Model Home Sales Greeter Relationship Specialty Start Date End Date Magdalena Acosta MD [address] [place] [address] PCP - General Family Medicine 02/05/23 documented as of this encounter
--- OUTSIDE RECORDS SUMMARY | 2024-06-20 15:52 | XMS_ITS | Encounter Summary ---
Author Organization [facility] [place] [address] Care Team Providers Care Seed Cone Picker Name Role Phone Magdalena Acosta MD Primary Care Provider [phone] Encounter Details Date Type Department Care Team [...] EST Office Visit Hematology and Oncology at [place] [phone] Markel Borjas MD [facility] DR [place] [address] 11/02/2024 12:00 PM EDT Appointment [place] [address] 11/02/2024 1:00 PM EDT Office [place] [address] Magdalena Peralta MD [facility] [place] [address] 03/01/2025 4:15 PM EDT Office Visit Dermatology at [place] [address] [place] [address] Marek Bonilla MD [address] [facility] [address] [place] [address] documented as of this encounter Visit Diagnoses Not on filedocumented in this encounter Care Teams Seed Cone Picker Relationship Specialty Start Date End Date Magdalena Acosta MD [address] [place] [address] PCP - General Family Medicine 02/05/23 documented as of this encounter
--- OUTSIDE RECORDS SUMMARY | 2024-06-20 15:52 | XMS_ITS | Encounter Summary ---
Author Organization [facility] Address [facility] [address] Care Team Providers Care Camp Coordinator Name Role Phone Deborah Quiroga APRN Primary Care Provider [phone] Encounter Details Date Type Department Care Team (Latest Contact Info) Description 07/03/2022 1:36 PM EST - 07/03/2022 11:59 PM EST Hospital Encounter Hematology [place] [address] Discharge Disposition: Home Social History Tobacco Use [...] EST Office Visit H[place]ology [place] [address] Markel Borjas MD [facility] DR HEMAT[place] [address] 11/02/2024 12:00 PM EDT Appointment [place] [address] 11/02/2024 1:00 PM EDT Office [place] [address] Magdalena Peralta MD [facility] [place] [address] 03/01/2025 4:15 PM EDT Office Visit Dermatology at [place] [address] [facility] [place] [address] Marek Bonilla MD [address] [facility] [address], [place] [address] documented as of this encounter Procedures Procedure [...] Address City/[facility]/ZIP Co de Phone Number [facility] [place] [address] * Vitamin B12 (07/03/2022 1:59 PM EST) Vitamin B12 449 232 - 1,245 pg/mL [facility] Blood Venous Draw / Unknown 07/03/2022 1:59 PM EST 07/03/2022 2:13 PM EST Narrative Resulting Agency Comment Spec In Lab Markel Borjas MD CHEMISTRY ORDERABL ES [facility] [place] [address] documented in this encounter Visit Diagnoses Not on filedocumented in this encounter Care Teams Camp Coordinator Relationship Specialty Start Date End Date Deborah Quiroga APRN PCP - General Family Medicine 03/24/16 02/04/23 documented as of this encounter
--- OUTSIDE RECORDS SUMMARY | 2024-06-20 15:53 | XMS_ITS | Encounter Summary ---
Author Organization [facility] [place] [address] Care Team Providers Care Performance Improvement Director Name Role Phone Winter Quiroga APRN Primary Care Provider [phone] Encounter Details Date Type Department Care Team (Late st Contact Info) Description 06/05/2021 Interpretation Only [address] [address] Winter Quiroga APRN [address] [phone] Social History Tobacco Use Types Packs/Day Years [...] Visit Hematology [place] [address] Markel Borjas MD [facility] DR HEMATOLOGY [place] [address] 11/02/2024 12:00 PM EDT [place] [address] 11/02/2024 1:00 PM EDT Office [place] [address] Magdalena Peralta MD [facility] DR [place] [address] 03/01/2025 4:15 PM EDT Office Visit Dermatology at [place] [address] [place] [address] Marek Bonilla MD [address], [place] [address] documented as of this encounter Procedures Procedure Name Priority Date/Time Associated Diagnosis Comments MAMMO SCREENING CAD AND CATRACHITO BILATERAL Routine 06/05/2021 11:42 AM EDT documented in this encounter Results * Mammo Screening Cad and Catrachito Bilateral (06/05/2021 11:42 AM EDT) PT CLASS O DH RAD ADMITDTTM DH RAD PT DH RAD INFO [id number]^EVERET T^WINTER^E DH RAD EXAM DESC MADDSCTO^BREAST SCREEN [...] Rocael Villatoro MD, [facility] ([phone]), at 06/05/2021 1:27 PM Narrative 06/05/2021 1:27 [...] care management that requested your imaging first. Winter Quiroga APRN IMG MAMMO ORDERABLE S documented in this encounter Visit Diagnoses Not on filedocumented in this encounter Care Teams Performance Improvement Director Relationship Specialty Start Date End Date Winter Quiroga APRN PCP - General Family Medicine 03/24/16 02/04/23 documented as of this encounter
--- OUTSIDE RECORDS SUMMARY | 2024-06-20 15:53 | XMS_ITS | Encounter Summary ---
Author Organization [facility] Address [facility] [place] [address] Care Team Providers Care Body And Fender Mechanic Name Role Phone Ashley Quirogan Cornelius ANURAG Primary Care Provider [phone] Encounter Details Date Type Department Care Team (Late st Contact Info) Description 07/21/2017 Orders Only Hematology and Oncology at [place] [phone] Alexandrea Greenwood RN Other neutropenia Social History [...] Visit Hematology and Oncology at [place] [phone] Markel Borjas MD [facility] DR H[place]ATOLOG[place] [address] 11/02/2024 12:00 PM EDT Appointment Pulmonology at [place] [phone] 11/02/2024 1:00 PM EDT Office Visit Rheumatology at [place] [phone] Magdalena Peralta MD [facility] DR [place] [address] 03/01/2025 4:15 PM EDT Office Visit Dermatology at [place] [address] [facility] [place] [address] Marek Bonilla MD [address], [place] [address] documented as of this encounter Visit Diagnoses Diagnosis Other neutropenia documented in this encounter Care Teams Body And Fender Mechanic Relationship Specialty Start Date End Date Deborah Quiroga APRN PCP - General Family Medicine 03/24/16 02/04/23 documented as of this encounter
--- OUTSIDE RECORDS SUMMARY | 2024-06-20 15:53 | XMS_ITS | Encounter Summary ---
Author Organization [facility] [place] [address] Care Team Providers Care Coroner Name Role Phone Ashley Quirogazac Shields APRN Primary Care Provider [phone] Encounter Details Date Type Department Care Team (Late st Contact Info) Description 06/18/2017 External Results Hematology and Oncology at [place] [phone] Alexandrea Greenwood RN Neutropenia, unspecified type Social [...] EST Office Visit Hematology [place] [address] [facility] DR [place] [address] 11/02/2024 12:00 PM EDT Appointment [place] [address] 11/02/2024 1:00 PM EDT Office Visit Rheumatology at [place] [phone] [facility] [place] [address] 03/01/2025 4:15 PM EDT Office Visit Dermatology at [place] [address] [place] [address] Marek Bonilla MD [address], [place] [address] documented as of this encounter Procedures Procedure [...] type documented in this encounter Care Teams Coroner Relationship Specialty Start Date End Date Deborah Quiroga, CLAM TREADER PCP - General Family Medicine 03/24/16 02/04/23 documented as of this encounter
--- OUTSIDE RECORDS SUMMARY | 2024-06-20 15:53 | XMS_ITS | Encounter Summary ---
[place] [address] Care Team Providers Care Production Control Manager Name Role Phone Ashley Quirogazac Shields APRN Primary Care Provider [phone] Reason for Visit * Reason Onset Date Comments Results 12/03/2016 Encounter Details Date Type Department Care Team (Late st Contact Info) Description 12/03/2016 Telephone [place] [address] Yudith Valentine RN Results Social [...] EDT RN received call from Maddy at [facility] reporting critical WBC at 1.61, and ANC of 0.5. She will fax the full results to this office for clinical appeals reviewer notified DR Borjas of above results documented in this encounter Plan of Treatment Upcoming Encounters Date Type Department Care Team (Late st Contact Info) Description 06/23/2024 2:00 PM EST Office Visit [place] [address] Markel Borjas MD [facility] [address] [place] [address] 11/02/2024 12:00 PM EDT Appointment Pulmonology at [place] [phone] 11/02/2024 1:00 PM EDT [place] [address] Magdalena Peralta MD [facility] [place] [address] 03/01/2025 4:15 PM EDT Office Visit Dermatology at [place] [address] [facility] [place] [address] Marek Bonilla MD [address] [place] [address] documented as of this encounter Visit Diagnoses Not on filedocumented in this encounter Care Teams Production Control Manager Relationship Specialty Start Date End Date Deborah Quiroga APRN PCP - General Family Medicine 03/24/16 02/04/23 documented as of this encounter
--- OUTSIDE RECORDS SUMMARY | 2024-06-20 15:53 | XMS_ITS | Encounter Summary ---
[place] [address] Care Team Providers Care Ui Ux Engineer Name Role Phone Ashley Quirogazac Shields APRN Primary Care Provider [phone] Reason for Visit * Reason Comments Annual Exam Encounter Details Date Type Department Care Team (Late st Contact Info) Description 01/09/2022 3:15 PM EDT Office Visit Dermatology at [address] [phone] Marek Bonilla MD [address] [facility], [address] A DERMATOLOGY [place], [place] [phone] Rosacea Social History Tobacco Use Types Packs/Day [...] cutaneous and ocular 2. Previously told by overseamer that she had corneal tears from her [...] refills. We will call this into her [facility] pharmacy in [place] 3. Continue metronidazole 0.75% gel applying every [...] EST Office Visit Hematology [place] [address] Markel Borjas MD [facility] DR HEMATOLOGY [place] [address] 11/02/2024 12:00 PM EDT Appointment [place] [address] 11/02/2024 1:00 PM EDT Office [place] [address] Magdalena Peralta MD [facility] [place] [address] 03/01/2025 4:15 PM EDT Office Visit Dermatology at [place] [address] [facility] [place] [address] Marek Bonilla MD [address] [facility] [address] [place] [address] documented as of this encounter Visit Diagnoses Diagnosis Rosacea documented in this encounter Care Teams Ui Ux Engineer Relationship Specialty Start Date End Date Deborah Quiroga APRN PCP - General Family Medicine 03/24/16 02/04/23 documented as of this encounter
--- OUTSIDE RECORDS SUMMARY | 2024-06-20 15:53 | XMS_ITS | Encounter Summary ---
Author Organization [facility] [place] [address] Care Team Providers Care Lemon Grower Name Role Phone Ashley Quirogazac Shields APRN Primary Care Provider [phone] Encounter Details Date Type Department Care Team [...] EST Office Visit Hematology and Oncology at [place] [phone] Markel Borjas MD [facility] DR [place] [address] 11/02/2024 12:00 PM EDT Appointment [place] [address] 11/02/2024 1:00 PM EDT Office Visit [place]ology [place] [address] Magdalena Peralta MD [facility] DR [place] [address] 03/01/2025 4:15 PM EDT Office Visit Dermatology at [place] [address] [place] [address] Marek Bonilla MD [address] [place] [address] documented as of this encounter Visit Diagnoses Not on filedocumented in this encounter Care Teams Lemon Grower Relationship Specialty Start Date End Date Deborah Quiroga APRN PCP - General Family Medicine 03/24/16 02/04/23 documented as of this encounter
--- OUTSIDE RECORDS SUMMARY | 2024-06-20 15:53 | XMS_ITS | Encounter Summary ---
Author Organization [facility] Address [facility] [place] [address] Care Team Providers Care Welder Machine Operator Name Role Phone Ashley Quirogazac Shields APRN Primary Care Provider [phone] Encounter Details Date Type Department Care Team (Late st Contact Info) Description 01/13/2021 Refill Dermatology at [address] [address] Taylor Malone, ENGINE REPAIR SUPERVISOR Social History Tobacco Use Types Packs/Day [...] EST Office Visit [place]ology [place] [address] Markel Borjas MD [facility] DR HEMATOLOGY [place] [address] 11/02/2024 12:00 PM EDT [place]oint[place] [address] 11/02/2024 1:00 PM EDT Office [place] [address] Magdalena Peralta MD [facility] [place] [address] 03/01/2025 4:15 PM EDT Office Visit Dermatology at [place] [address] [place] [address] Marek Bonilla MD [address], [place] [address] documented as of this encounter Visit Diagnoses Not on filedocumented in this encounter Care Teams Welder Machine Operator Relationship Specialty Start Date End Date Deborah Quiroga APRN PCP - General Family Medicine 03/24/16 02/04/23 documented as of this encounter
--- OUTSIDE RECORDS SUMMARY | 2024-06-20 15:53 | XMS_ITS | Encounter Summary ---
Author Organization [facility] Address [facility] [place] [address] Care Team Providers Care Driver Name Role Phone Deborah Quiroga APRN Primary Care Provider [phone] Encounter Details Date Type Department Care Team (Late st Contact Info) Description 03/01/2020 11:30 AM EDT Office Visit Hematology [place] [address] Patrick Borjas MD [facility] DR [place] [address] Neutropenia, unspecified type Social History Tobacco Use [...] 03/01/2020 11:30 AM EDT Hematology Outpatient Clinic [facility] Hematology Outpatient Consult Note CC: [...] TOUCH PREP, CLOT SECTION, CORE ??BIOPSY); [OSR# [id number], COLLECTED 06/23/2016, 19 SLIDES]: ?1. 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 Extremities: No edema. Labs: Hgb= 12.4 Dxdr=329 ANC= 2.5 Imaging As above - reviewed [...] EST Office Visit Hematology [place] [address] Patrick Borjas MD [facility] [address] [place] [address] 11/02/2024 12:00 PM EDT Appointment [place] [address] 11/02/2024 1:00 PM EDT Office [place] [address] Magdalena Peralta MD [facility] [place] [address] 03/01/2025 4:15 PM EDT Office Visit Dermatology at [place] [address] [facility] [place] [address] Marek Bonilla MD [address] [place] [address] documented as of this encounter Visit Diagnoses Diagnosis Neutropenia, unspecified type documented in this encounter Care Teams Driver Relationship Specialty Start Date End Date Deborah Quiroga APRN PCP - General Family Medicine 03/24/16 02/04/23 documented as of this encounter
--- OUTSIDE RECORDS SUMMARY | 2024-06-20 15:53 | XMS_ITS | Encounter Summary ---
Author Organization [facility] Address [facility] [place] [address] Care Team Providers Care Drill Press Hand Name Role Phone Deborah Quiroga APRN Primary Care Provider [phone] Reason for Visit * Consultation (Routine) - Closed Specialty Diagnoses / Procedures Referred By Contkrystle t Referred To Contact Rheumatology Diagnoses Positive FRANCISCO (antinuclear antibody) Arthralgia, unspecified joint Sandy Wu APRN [address] [place] [address] [facility] [address] [place] [address] Referral ID Status Reason Start Date Expiration Date V isits Requested Visits Authorized [id number] Closed Consult, Test & Treat PCP Updated and/or Approved 01/01/2022 01/01/2023 6 6 Encounter Details Date Type Department Care Team (Latest Contact Info) Description 01/20/2022 10:00 AM EDT Office [place] [address] Raymond Loredo MD [facility] [place] [address] Rosacea; Raynaud's phenomenon without gangrene; [...] over radiocarpal or ulnocarpal joints. Hands: Normal heading machine operator and claw. SJC/TJC 0/0. Hips: Full [...] can be done locally or here at [facility] that the current time is not particularly interested it seems Raymond Loredo MD documented in this encounter Plan of Treatment Upcoming Encounters Date Type Department Care Team (Late st Contact Info) Description 06/23/2024 2:00 PM EST Office Visit Hematology and Oncology at [place] [phone] Markel Borjas MD [facility] DR [place] [address] 11/02/2024 12:00 PM EDT Appointment Pulmonology at [place] [address] 11/02/2024 1:00 PM EDT Office Visit Rheumatology at [place] [address] Magdalena Peralta MD [facility] [place] [address] 03/01/2025 4:15 PM EDT Office Visit Dermatology at [place] [address] [place] [address] Marek Bonilla MD [address] [facility] [place] [address] Scheduled Referrals Name Type Priority Associated Diagnoses [...] syndrome documented in this encounter Care Teams Drill Press Hand Relationship Specialty Start Date End Date Deborah Quiroga APRN PCP - General Family Medicine 03/24/16 02/04/23 documented as of this encounter
--- OUTSIDE RECORDS SUMMARY | 2024-06-20 15:53 | XMS_ITS | Encounter Summary ---
Author Organization [facility] Address [facility] [place] [address] Care Team Providers Care Structured Cabling Technician Name Role Phone Ashley Quirogazac Shields APRN Primary Care Provider +1 [phone] Encounter Details Date Type Department Care Team (Latest Contact Info) Description 06/22/2022 10:00 AM EST [place] [address] [facility] [place] [address] Raynaud's phenomenon without gangrene; Positive FRANCISCO (antinuclear [...] can be done locally or here at [facility] that the current time [...] for surgery by Dr. Rogers here at [facility]. In addition to painful [...] over radiocarpal or ulnocarpal joints. Hands: Normal citizen participation specialist and claw. SJC/TJC 0/0. Knees: Decreased flexion [...] Visit Hematology and Oncology at [place] [phone] [facility] DR HEMATOLOGY [place] [address] 11/02/2024 12:00 PM EDT Appointment Pulmonology at [place] [address] 11/02/2024 1:00 PM EDT Office Visit Rheumatology at [place] [phone] [facility] [place] [address] 03/01/2025 4:15 PM EDT Office Visit Dermatology at [address] [place] [address] Marek Bonilla MD [address] [place] [address] RD, [place] DERMATOLOGY [place], [place] [id number] documented as of this encounter Visit Diagnoses Diagnosis Raynaud's phenomenon without gangrene Positive FRANCISCO (antinuclear antibody) Other and unspecified nonspecific immunological findings Primary osteoarthritis involving multiple joints Cervical disc disorder at C6-C7 level with radiculopathy documented in this encounter Care Teams Structured Cabling Technician Relationship Specialty Start Date End Date Deborah Quiroga APRN PCP - General Family Medicine 03/24/16 02/04/23 documented as of this encounter
--- OUTSIDE RECORDS SUMMARY | 2024-06-20 15:53 | XMS_ITS | Encounter Summary ---
Author Organization [facility] [place] [address] Care Team Providers Care Real Estate Administrator Name Role Phone Ashley Quirogan Sylvia ANURAG Primary Care Provider +1 [phone] Reason for Visit * Reason Comments Skin Check Encounter Details Date Type Department Care Team (Late st Contact Info) Description 11/11/2020 10:45 AM EDT Office Visit Dermatology at [address] [place] [address] Marek Bonilla MD [address] [facility], [place] DERMATOLOGY [place], [place] [phone] Rosacea; Acrochordon Social History Tobacco Use Types [...] Discussed the possibility of getting this through [employer] or from the [facility] pharmacy if necessary. She has not yet [...] EST Office Visit Hematology [place] [address] Markel Borjas MD [facility] DR [place] [address] 11/02/2024 12:00 PM EDT Appointment [place] [address] 11/02/2024 1:00 PM EDT Office [place] [address] Magdalena Peralta MD [facility] [place] [address] 03/01/2025 4:15 PM EDT Office Visit Dermatology at [place] [address] [facility] [place] [address] Marek Bonilla MD [address], [place] [address] documented as of this encounter Visit Diagnoses Diagnosis Rosacea Acrochordon Unspecified hypertrophic and atrophic condition of skin documented in this encounter Care Teams Real Estate Administrator Relationship Specialty Start Date End Date Deborah Quiroga, ACCOUNTS PAYABLES CLERK PCP - General Family Medicine 03/24/16 02/04/23 documented as of this encounter
--- OUTSIDE RECORDS SUMMARY | 2024-06-20 15:53 | XMS_ITS | Encounter Summary ---
Author Organization [facility] Address [facility] [place] [address] Care Team Providers Care Survey Compiler Name Role Phone Junaid Deborah Shields APRN Primary Care Provider +1 [phone] Encounter Details Date Type Department Care Team (Late st Contact Info) Description 03/04/2020 External Results Hematology and Oncology at [place] [phone] [employer] [place]la Social History Tobacco Use Types [...] EST Office Visit Hematology and Oncology at [place] [phone] Markel Borjas MD [facility] [place] [address] 11/02/2024 12:00 PM EDT Appointment Pulmonology at [place] [phone] 11/02/2024 1:00 PM EDT Office Visit Rheumatology at [place] [phone] Magdalena Peralta MD [facility] [place] [address] 03/01/2025 4:15 PM EDT Office Visit Dermatology at [place] [address] [place] [address] Marek Bonilla MD [address] [address], [place] [address] documented as of this encounter Procedures Procedure [...] filedocumented in this encounter Care Teams Survey Compiler Relationship Specialty Start Date End Date Deborah Quiroga APRN PCP - General Family Medicine 03/24/16 02/04/23 documented as of this encounter
--- OUTSIDE RECORDS SUMMARY | 2024-06-20 15:53 | XMS_ITS | Encounter Summary ---
Author Organization [facility] [place] [address] Care Team Providers Care Ip Architect Name Role Phone Deborah Quiroga APRN Primary Care Provider Encounter Details Date Type Department Care Team (Late st Contact Info) Description 06/08/2022 Ancillary Procedure Radiology Library at [facility] [place] [place] [address] Deborah Quiroga APRN [address] [place] [phone] Social History Tobacco Use Types Packs/Day [...] EST Office Visit [place] [phone] Markel Borjas MD [facility] [place] [address] 11/02/2024 12:00 PM EDT [place] [address] 11/02/2024 1:00 PM EDT [place] [address] Magdalena Peralta MD [facility] [place] [address] 03/01/2025 4:15 PM EDT Office Visit Dermatology at [place] [address] [facility] [place] [address] Marek Bonilla MD [address], [place] [address] documented as of this encounter Procedures Procedure Name Priority Date/Time Associated Diagnosis Comments FILM LIBRARY STORAGE ONLY DX SPINE Routine 06/08/2022 12:00 AM EST documented in this encounter Results * Film Library- Storage Only DX Spine (06/08/2022 12:00 AM EST) Narrative [facility] - 06/18/2022 10:57 AM EST This exam is auto-finalizing. It's purpose is for storage only. Deborah Quiroga APRN IMGerman FILM LIBRARY OR DERABLES Performing Organization Address City/State/[facility] Co de Phone Number [place], [place] documented in this encounter Visit Diagnoses Not on filedocumented in this encounter Care Teams Ip Architect Relationship Specialty Start Date End Date Deborah Quiroga APRN PCP - General Family Medicine 03/24/16 02/04/23 documented as of this encounter
--- OUTSIDE RECORDS SUMMARY | 2024-06-20 15:53 | XMS_ITS | Encounter Summary ---
Author Organization [facility] [place] [address] Care Team Providers Care Heel Nailing Machine Operator Name Role Phone Winter Quiroga APRN Primary Care Provider +1- [phone] Encounter Details Date Type Department Care Team (Late st Contact Info) Description 06/05/2021 Interpretation Only [address] [address] Winter Quiroga APRN [address] [phone] Social History Tobacco Use Types Packs/Day Years [...] EST Office Visit Hematology [place] [address] Markel Borjas MD [facility] [address] [place] [address] 11/02/2024 12:00 PM EDT Appointment [place] [address] 11/02/2024 1:00 PM EDT Office [place] [address] Magdalena Peralta MD [facility] [place] [address] 03/01/2025 4:15 PM EDT Office Visit Dermatology at [place] [address] [place] [address] Marek Bonilla MD [address], [place] [address] documented as of this encounter Procedures Procedure Name Priority Date/Time Associated Diagnosis Comments MAMMO SCREENING CAD BILATERAL Routine 06/05/2021 11:42 AM EDT documented in this encounter Results * Mammo Screening Cad Bilateral (06/05/2021 11:42 AM EDT) PT CLASS O RAD ADMITDTTM RAD PT RAD INFO [id number]^EV ERETT^WINTER^E RAD EXAM DESC MADDSC^SCREEN MAMMO BL [...] have questions please contact the health lawn care technician that requested your imaging first. ? Electronically signed by: Rocael Villatoro MD, [facility] ([phone]), at 06/05/2021 1:27 PM Narrative 06/05/2021 1:27 [...] who have questions please contactthe health lawn care technician that requested your imaging first. Electronically signed by: Rocael Villatoro MD, [facility]([phone]), at 06/05/2021 1:27 PM Winter Quiroga APRN IMG MAMMO ORDERABLE S documented in this encounter Visit Diagnoses Not on filedocumented in this encounter Care Teams Heel Nailing Machine Operator Relationship Specialty Start Date End Date Winter Quiroga APRN PCP - General Family Medicine 03/24/16 02/04/23 documented as of this encounter
--- OUTSIDE RECORDS SUMMARY | 2024-06-20 15:53 | XMS_ITS | Encounter Summary ---
[place] [address] Care Team Providers Care Warehouse Worker 2Nd Shift Name Role Phone Junaid Deborah Shields APRN Primary Care Provider +1 [phone] Encounter Details Date Type Department Care Team (Late st Contact Info) Description 10/20/2016 11:20 AM EDT Office [place] [phone] Alirio Esparza MD S/P AVR Social History [...] should continue to see Dr. Burrell, her resource development director at [facility]. cc: Dr. Burrell documented in this encounter Plan of Treatment Upcoming Encounters Date Type Department Care Team (Late st Contact Info) Description 06/23/2024 2:00 PM EST Office Visit Hematology [place] [address] Markel Borjas MD [facility] [place] [address] 11/02/2024 12:00 PM EDT Appointment [place] [address] 11/02/2024 1:00 PM EDT Office [place] [address] Magdalena Peralta MD [facility] [place] [address] 03/01/2025 4:15 PM EDT Office Visit Dermatology at [place] [address] [facility] [place] [address] Marek Bonilla MD [address], [place] [address] documented as of this encounter Visit Diagnoses Diagnosis S/P AVR Heart valve replaced by other means documented in this encounter Care Teams Warehouse Worker 2Nd Shift Relationship Specialty Start Date End Date Deborah Quiroga APRN PCP - General Family Medicine 03/24/16 02/04/23 documented as of this encounter
--- OUTSIDE RECORDS SUMMARY | 2024-06-20 15:53 | XMS_ITS | Encounter Summary ---
Author Organization [facility] Address [facility] [place] [address] Care Team Providers Care Barber Stylist Name Role Phone Deborah Quiroga APRN Primary Care Provider +1- [phone] Encounter Details Date Type Department Care Team (Latest Contact Info) Description 10/14/2016 - 10/14/2016 11:59 PM EDT Hospital Encounter Radiology Library at [facility] [place] [place] [address] Alirio Esparza MD Pain Discharge Disposition: Home [...] EST Office Visit Hematology [place] [address] Markel Borjas MD [facility] DR HEMATOLOGY [place] [address] 11/02/2024 12:00 PM EDT [place]oint[place] [address] 11/02/2024 1:00 PM EDT Office [place] [address] Magdalena Peralta MD [facility] [place] [address] 03/01/2025 4:15 PM EDT Office Visit Dermatology at [place] [address] [facility] [place] [address] Marek Bonilla MD [address], [place] [address] documented as of this encounter Procedures Procedure [...] LIBRARY OR DERABLES Performing Organization Address City/State/[facility] Co de Phone Number [place], [place] documented in this encounter Visit Diagnoses Diagnosis Pain Generalized pain documented in this encounter Care Teams Barber Stylist Relationship Specialty Start Date End Date Deborah Quiroga, SPRING SETTER PCP - General Family Medicine 03/24/16 02/04/23 documented as of this encounter
--- OUTSIDE RECORDS SUMMARY | 2024-06-20 15:53 | XMS_ITS | Encounter Summary ---
[place] [address] Care Team Providers Care Reference Investigator Name Role Phone Junaid Deborah Shields APRN Primary Care Provider +1 [phone] Reason for Visit * Reason Comments Follow-up Encounter Details Date Type Department Care Team (Late st Contact Info) Description 01/10/2021 4:30 PM EDT Office Visit Dermatology at [place] [address] [place] [place] [address] Marek Bonilla MD [address] [facility], [place] DERMATOLOGY [place], [place] [address] Rosacea Social History Tobacco Use Types Packs/Day [...] cutaneous and ocular 2. Previously told by steel erecting pusher that she had corneal tears from her [...] 3 refills. Will call this in her [facility] in [place] 3. Continue metronidazole 0.75% gel applying once [...] Office Visit Hematology [place] [address] Markel Borjas MD [facility] [place] [address] 11/02/2024 12:00 PM EDT Appointment [place] [address] 11/02/2024 1:00 PM EDT Office [place] [phone] Magdalena Peralta MD [facility] [place] [address] 03/01/2025 4:15 PM EDT Office Visit Dermatology at [place] [address] [address] [place] [address] Marek Bonilla MD [address] [facility] [facility] [address], [place] [address] documented as of this encounter Visit Diagnoses Diagnosis Rosacea documented in this encounter Care Teams Reference Investigator Relationship Specialty Start Date End Date Deborah Quiroga APRN PCP - General Family Medicine 03/24/16 02/04/23 documented as of this encounter
--- OUTSIDE RECORDS SUMMARY | 2024-06-20 15:53 | XMS_ITS | Encounter Summary ---
Author Organization [facility] [place] [address] Care Team Providers Care Supervisor Motorcycle Repair Shop Name Role Phone Winter Quiroga APRN Primary Care Provider +1- [phone] Encounter Details Date Type Department Care Team (Late st Contact Info) Description 06/05/2021 Interpretation Only [address] [address] Winter Quiroga APRN [address] [phone] Social History Tobacco Use Types Packs/Day Years [...] EST Office Visit Hematology [place] [address] Markel Borjas MD [facility] DR HEMATOLOGY [place] [address] 11/02/2024 12:00 PM EDT Appointment [place] [address] 11/02/2024 1:00 PM EDT Office [place] [address] Magdalena Peralta MD [facility] [place] [address] 03/01/2025 4:15 PM EDT Office Visit Dermatology at [place] [address] [facility] [place] [address] Marek Bonilla MD [address], [place] [address] documented as of this encounter Procedures Procedure Name Priority Date/Time Associated Diagnosis Comments DXA CENTRAL SPINE, HIP, AND/OR WHOLE BODY (GENERIC) Routine 06/05/2021 11:58 AM EDT documented in this encounter Results * DXA Central Spine, Hip, and/or Whole Body (Generic) (06/05/2021 11:58 AM EDT) PT CLASS O RAD ADMITDTTM RAD PT RAD INFO [id number]^E VERETT^WINTER ^E RAD EXAM DESC XDXAC^DEXA SCAN [...] questions please contact the health career development specialist that requested your imaging first. ? Electronically signed by: Rocael Villatoro MD, [facility] ([phone]), at 06/05/2021 12:00 PM Narrative 06/05/2021 12:00 [...] have questions please contactthe health career development specialist that requested your imaging first. Electronically signed by: Rocael Villatoro MD, [facility]([phone]), at 06/05/2021 12:00 PM Winter Quiroga APRN IMGerman DEXA ORDERABLES documented in this encounter Visit Diagnoses Not on filedocumented in this encounter Care Teams Supervisor Motorcycle Repair Shop Relationship Specialty Start Date End Date Winter Quiroga APRN PCP - General Family Medicine 03/24/16 02/04/23 documented as of this encounter
--- OUTSIDE RECORDS SUMMARY | 2024-06-20 15:53 | XMS_ITS | Encounter Summary ---
Author Organization [facility] Address [facility] [place] [address] Care Team Providers Care Design Engineering Manager Name Role Phone Deborah Quiroga APRN Primary Care Provider Encounter Details Date Type Department Care Team (Late st Contact Info) Description 06/18/2017 11:00 AM EST Office Visit Hematology [place] [address] Markel Borjas MD [facility] DR HEMATOLOGY [place] [address] Neutropenia, unspecified type Social History Tobacco Use [...] 06/18/2017 11:00 AM EST Hematology Outpatient [facility] [...] TOUCH PREP, CLOT SECTION, CORE ??BIOPSY); [OSR# [id number], COLLECTED 06/23/2016, 19 SLIDES]: ?1. ??Normocellular marrow [...] a clonal lymphoproliferative or myeloproliferative disorder (OSR# [id number]) Chromosome analysis on the marrow aspirate revealed [...] working the same job and participating in [employer] patients. Past Medical/Surgical History: 1. Leukopenia -element of neutropenia, as noted above 2. Aortic Stenosis -severe -AVR surgery 3. Hypercholesterolemia 4. Depression 5. Hypertension 6. 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 Extremities: No edema. Labs: Hgb= 13 Wjic=490 ANC= 0.6 Imaging As above - reviewed [...] EST Office Visit Hematology and Oncology at [place] [phone] Markel Borjas MD [facility] [place] [address] 11/02/2024 12:00 PM EDT Appointment Pulmonology at [place] [address] 11/02/2024 1:00 PM EDT Office Visit Rheumatology at [place] [address] Magdalena Peralta MD [facility] [place] [address] 03/01/2025 4:15 PM EDT Office Visit Dermatology at [address] [place] [address] Marek Bonilla MD [address], [place] [address] documented as of this encounter Visit Diagnoses Diagnosis Neutropenia, unspecified type documented in this encounter Care Teams Design Engineering Manager Relationship Specialty Start Date End Date Deborah Quiroga APRN PCP - General Family Medicine 03/24/16 02/04/23 documented as of this encounter
--- OUTSIDE RECORDS SUMMARY | 2024-06-20 15:53 | XMS_ITS | Encounter Summary ---
Author Organization [facility] Address [facility] [place] [address] Care Team Providers Care Zipper Trimmer Name Role Phone Junaid Deborah Shields APRN Primary Care Provider +1 [phone] Reason for Referral * Consultation (Routine) - Closed Specialty Diagnoses / Procedures Referred By Contac t Referred To Contact Neurology Diagnoses Neck pain Popeye Rogers MD [facility] [place] [address] Kyra Haas MD [facility] [address] [address] Referral ID Status Reason Start Date Expiration Date V isits Requested Visits Authorized [id number] Closed Consult, Test & Treat 06/29/2022 06/29/2023 1 1 Reason for Visit * Reason Comments Neck Pain Weak in both arms, p ain and tingling in arms and hands Encounter Details Date Type Department Care Team (Late st Contact Info) Description 06/29/2022 10:20 AM EST Office Visit [facility] [place] [address] [facility] [address] Neck pain Social History Tobacco Use Types [...] have EMG and nerve conduction studies in [place] that showed carpal tunnel syndrome. I do not have a copy of that report. documented in this encounter Plan of Treatment Upcoming Encounters Date Type Department Care Team (Late st Contact Info) Description 06/23/2024 2:00 PM EST Office Visit Hematology and Oncology at [place] [phone] [facility] DR HEMATOLOGY [place] [address] 11/02/2024 12:00 PM EDT Appointment Pulmonology at [place] [address] 11/02/2024 1:00 PM EDT Office Visit Rheumatology at [place] [phone] [facility] [place] [address] 03/01/2025 4:15 PM EDT Office Visit Dermatology at [place] [address] [facility] [place] [address] Marek Bonilla MD [address] [facility], [place] [address] Scheduled Referrals Name Type Priority Associated Diagnoses Orde r Schedule Referral to Neurology Outpatient Referral Routine Neck pain Ordered: 06/29/2022 documented as of this encounter Visit Diagnoses Diagnosis Neck pain Cervicalgia documented in this encounter Care Teams Zipper Trimmer Relationship Specialty Start Date End Date Deborah Quiroga, WAREHOUSE SELECTOR PCP - General Family Medicine 03/24/16 02/04/23 documented as of this encounter
--- OUTSIDE RECORDS SUMMARY | 2024-06-20 15:53 | XMS_ITS | Encounter Summary ---
[place] [address] Care Team Providers Care Group Worker Name Role Phone Ashley Quirogan Cornelius ANURAG Primary Care Provider +1 [phone] Reason for Visit * Reason Comments Acrochordon Rosacea Encounter Details Date Type Department Care Team (Late st Contact Info) Description 12/05/2020 3:00 PM EDT Office Visit Dermatology at [address] [address] Marek Bonilla MD [address] [facility], [place] [address] Inflamed acrochordon Social History Tobacco Use Types [...] EST Office Visit [place] [address] [facility] [address] [place] [address] 11/02/2024 12:00 PM EDT Appointment Pulmonology at [place] [address] 11/02/2024 1:00 PM EDT [place] [address] [facility] [place] [address] 03/01/2025 4:15 PM EDT Office Visit Dermatology at [address] [place] [address] Marek Bonilla MD [address], [place] [address] documented as of this encounter Visit Diagnoses Diagnosis Inflamed acrochordon Unspecified hypertrophic and atrophic condition of skin documented in this encounter Care Teams Group Worker Relationship Specialty Start Date End Date Deborah Quiroga APRN PCP - General Family Medicine 03/24/16 02/04/23 documented as of this encounter
--- OUTSIDE RECORDS SUMMARY | 2024-06-20 15:53 | XMS_ITS | Encounter Summary ---
Author Organization [facility] Address [facility] Erika becerra [place] [id number] Care Team Providers Care Immunohematologist Name Role Phone Ashley Quirogan Cornelius ANURAG Primary Care Provider +1 [phone] Encounter Details Date Type Department Care Team (Late st Contact Info) Description 12/04/2016 External Results Hematology and Oncology at [place] [phone] Teresa Dodson RN Social History Tobacco Use [...] EST Office Visit Hematology and Oncology at [place] [phone] Markel Borjas MD [facility] [place] [address] 11/02/2024 12:00 PM EDT Appointment Pulmonology at [place] [phone] 11/02/2024 1:00 PM EDT Office Visit Rheumatology at [place] [phone] Magdalena Peralta MD [facility] [place] [address] 03/01/2025 4:15 PM EDT Office Visit Dermatology at [place] [address] [place] [address] Marek Bonilla MD [address], [place] [address] documented as of this encounter Procedures Procedure Name Priority Date/Time Associated Diagnosis Comments CBC (WITH DIFF) Routine 12/03/2016 11:35 AM EDT COMPREHENSIVE METABOLIC PANEL Routine 12/03/2016 11:35 AM EDT documented in this encounter Results * (ABNORMAL) Comprehensive metabolic panel (non-fasting) (12/03/2016 11:35 AM EDT) Glucose 85([facility]) Blood Urea Nitrogen 11([facility]) Creatinine 0.93(Exte rnal Lab) Sodium 140(Exter nal Lab) Potassium 4.2(Exter nal Lab) Chloride 104(Exter nal Lab) Calcium 10.0(Exte rnal Lab) Protein, Total 8.1(Exter nal Lab) Albumin 3.5(Exter nal Lab) Bilirubin, Total 0.25(Exte rnal Lab) Alkaline Phosphatase 96([facility]) Aspartate Aminotransferase 18([facility]) Alanine Aminotransferase 21([facility]) Blood specimen (specimen) 12/03/2016 11:35 AM EDT Historical Provider CHEMISTRY ORDERAB LES * (ABNORMAL) CBC (with Diff) (12/03/2016 11:35 AM EDT) White Blood Cell 1.61(EXTER NAL/ABN) 4.4 - 10.8 Hemoglobin 13.0(Exter nal Lab) Hematocrit 39.8(Exter nal Lab) Platelet 248([facility]) Neutrophil Absolute (ANC) - Automated 0.5(FABRICATION INSPECTOR AL/ABN) Blood specimen (specimen) 12/03/2016 11:35 AM EDT Historical Provider HEMATOLOGY ORDERA BLES documented in this encounter Visit Diagnoses Not on filedocumented in this encounter Care Teams Immunohematologist Relationship Specialty Start Date End Date Deborah Quiroga, BUYER ASSISTANT PCP - General Family Medicine 03/24/16 02/04/23 documented as of this encounter
--- OUTSIDE RECORDS SUMMARY | 2024-06-20 15:53 | XMS_ITS | Encounter Summary ---
Author Organization [facility] Address [facility] [place] [address] Care Team Providers Care Supervisor Reinforced Steel Placing Name Role Phone Deborah Quiroga ANURAG Primary Care Provider +1 [phone] Encounter Details Date Type Department Care Team (Late st Contact Info) Description 01/09/2022 Refill Dermatology at [address] [phone] Lupe Connor RN Social History Tobacco Use [...] EST Office Visit Hematology and Oncology at [place] [phone] Markel Borjas MD [facility] [address] [place] [address] 11/02/2024 12:00 PM EDT Appointment [place] [address] 11/02/2024 1:00 PM EDT Office Visit Rheumatology at [place] [phone] Magdalena Peralta MD [facility] [place] [address] 03/01/2025 4:15 PM EDT Office Visit Dermatology at [place] [address] [place] [address] Marek Bonilla MD [address], [place] [address] documented as of this encounter Visit Diagnoses Not on filedocumented in this encounter Care Teams Supervisor Reinforced Steel Placing Relationship Specialty Start Date End Date Deborah Quiroga APRN PCP - General Family Medicine 03/24/16 02/04/23 documented as of this encounter
--- OUTSIDE RECORDS SUMMARY | 2024-06-20 15:53 | XMS_ITS | Encounter Summary ---
[place] [address] Care Team Providers Care Swat Team Member Name Role Phone Ashley Quirogan Cornelius ANURAG Primary Care Provider +1 [phone] Encounter Details Date Type Department Care Team (Late st Contact Info) Description 02/07/2020 Telephone H[place] [address] Ellen Rios RN Social History [...] 02/07/2020 12:59 PM EDT Message received from company secretary: Injection/Infusion Referral Services to be provided for pt are: CBC only at [facility]- Pt will go by 02/27 Orders faxed to [phone]). Spoke with pt. She will call [facility] directly to schedule a time that works for her. documented in this encounter Plan of Treatment Upcoming Encounters Date Type Department Care Team (Late Contact Info) Description 06/23/2024 2:00 PM EST Office Visit H[place] [address] Markel Borjas MD [facility] [address] HEMATOLOGY [place] [address] 11/02/2024 12:00 PM EDT Appointment Pulmonology at [place] [address] 11/02/2024 1:00 PM EDT Office Visit Rheumatology at [place] [phone] Magdalena Peralta MD [facility] [place] [address] 03/01/2025 4:15 PM EDT Office Visit Dermatology at [place] [address] [place] [address] Marek Bonilla MD [address], [place] [address] documented as of this encounter Visit Diagnoses Not on filedocumented in this encounter Care Teams Swat Team Member Relationship Specialty Start Date End Date Deborah Quiroga APRN PCP - General Family Medicine 03/24/16 02/04/23 documented as of this encounter
--- OUTSIDE RECORDS SUMMARY | 2024-06-20 15:53 | XMS_ITS | Encounter Summary ---
Author Organization [facility] [place] [address] Care Team Providers Care Staff Development Coordinator Rn Name Role Phone Deborah Quiroga APRN Primary Care Provider Encounter Details Date Type Department Care Team (Late st Contact Info) Description 06/17/2022 Ancillary Procedure Radiology Library at [facility] [place] [address] Deborah Quiroga APRN [address] [place] [phone] Social History Tobacco Use Types Packs/Day [...] Office Visit Hematology [place] [phone] Markel Borjas MD [facility] [place] [address] 11/02/2024 12:00 PM EDT Appointment [place] [phone] 11/02/2024 1:00 PM EDT Office [place] [address] Magdalena Peralta MD [facility] [place] [address] 03/01/2025 4:15 PM EDT Office Visit Dermatology at [place] [address] [place] [phone] Marek Bonilla MD [address], [place] [address] documented as of this encounter Procedures Procedure [...] FILM LIBRARY OR DERABLES Performing Organization Address City/State/[facility] Co de Phone Number [place], [place] documented in this encounter Visit Diagnoses Not on filedocumented in this encounter Care Teams Staff Development Coordinator Rn Relationship Specialty Start Date End Date Deborah Quiroga APRN PCP - General Family Medicine 03/24/16 02/04/23 documented as of this encounter
--- OUTSIDE RECORDS SUMMARY | 2024-06-20 15:53 | XMS_ITS | Encounter Summary ---
[place] [address] Care Team Providers Care Communications Administrator Name Role Phone Deborah Quiroga APRN Primary Care Provider [phone] [phone] Reason for Referral * Consultation (Routine) - Closed Specialty Diagnoses / Procedures Referred By Contac t Referred To Contact Rheumatology Diagnoses Positive FRANCISCO (antinuclear antibody) Arthralgia, unspecified joint Sandy Wu APRN [address] [place] [address] [facility] [address] [place] [phone] Referral ID Status Reason Start Date Expiration Date V isits Requested Visits Authorized [id number] Closed Consult, Test & Treat PCP Updated and/or Approved 01/01/2022 01/01/2023 6 6 Encounter Details Date Type Department Care Team (Latest Contact Info) Description 01/01/2022 Transcribe Orders eDH Incoming Referrals [phone] Sandy Wu APRN [address] [place], [place] [id number] Positive FRANCISCO (antinuclear antibody); Arthralgia, unspecified joint [...] EST Office Visit Hematology and Oncology at [place] [phone] Markel Borjas MD [facility] [address] [place] [address] 11/02/2024 12:00 PM EDT Appointment Pulmonology at [address] 11/02/2024 1:00 PM EDT Office Visit Rheumatology at [place] [address] Magdalena Peralta MD [facility] [place] [address] 03/01/2025 4:15 PM EDT Office Visit Dermatology at [address] [phone] Marek Bonilla MD [address] [place] [address], [place] [address] Scheduled Referrals Name Type Priority Associated Diagnoses Orde r Schedule Referral to Rheumatology Outpatient Referral Routine Positive FRANCISCO (antinuclear antibody) Arthralgia, unspecified joint Ordered: 01/01/2022 documented as of this encounter Visit Diagnoses Diagnosis Positive FRANCISCO (antinuclear antibody) Other and unspecified nonspecific immunological findings Arthralgia, unspecified joint documented in this encounter Care Teams Communications Administrator Relationship Specialty Start Date End Date Deborah Quiroga APRN PCP - General Family Medicine 03/24/16 02/04/23 documented as of this encounter
--- OUTSIDE RECORDS SUMMARY | 2024-06-20 15:53 | XMS_ITS | Encounter Summary ---
Author Organization [facility] Erika [facility] [place] [address] Care Team Providers Care Instrument And Control Technician Name Role Phone Ashley Quirogazac Shields APRN Primary Care Provider +1 [phone] Encounter Details Date Type Department Care Team [...] Visit Hematology and Oncology at [place] [phone] Markel Borjas MD [facility] [address] [place] [address] 11/02/2024 12:00 PM EDT Appointment [place] [address] 11/02/2024 1:00 PM EDT Office [place] [address] Magdalena Peralta MD [facility] [place] [address] 03/01/2025 4:15 PM EDT Office Visit Dermatology at [place] [address] [place] [address] Marek Bonilla MD [address], [place] [address] documented as of this encounter Visit Diagnoses Not on filedocumented in this encounter Care Teams Instrument And Control Technician Relationship Specialty Start Date End Date Deborah Quiroga APRN PCP - General Family Medicine 03/24/16 02/04/23 documented as of this encounter
--- OUTSIDE RECORDS SUMMARY | 2024-06-20 15:53 | XMS_ITS | Encounter Summary ---
Author Organization [facility] Address [facility] [place] [address] Care Team Providers Care Procurement Forester Name Role Phone Ashley Quirogazac Shields APRN Primary Care Provider +1 [phone] Encounter Details Date Type Department Care Team (Late st Contact Info) Description 11/11/2020 Refill Dermatology at [address] [address] Taylor Malone, PHOTOGRAPHIC COLORIST Social History Tobacco Use Types Packs/Day Years [...] [place] [address] Markel Borjas MD [facility] [address] [place] [address] 11/02/2024 12:00 PM EDT Appointment [place] [address] 11/02/2024 1:00 PM EDT Office [place] [address] Magdalena Peralta MD [facility] [place] [address] 03/01/2025 4:15 PM EDT Office Visit Dermatology at [place] [address] [place] [address] Marek Bonilla MD [address], [place] [address] documented as of this encounter Visit Diagnoses Not on filedocumented in this encounter Care Teams Procurement Forester Relationship Specialty Start Date End Date Deborah Quiroga APRN PCP - General Family Medicine 03/24/16 02/04/23 documented as of this encounter
--- OUTSIDE RECORDS SUMMARY | 2024-06-20 15:53 | XMS_ITS | Encounter Summary ---
Author Organization [facility] Address [facility] [place] [address] Care Team Providers Care Psychiatric Aide Name Role Phone Deborah Quiroga APRN Primary Care Provider +1 [phone] Reason for Visit * Reason Comments Follow-up Encounter Details Date Type Department Care Team (Late st Contact Info) Description 07/03/2022 1:30 PM EST Office Visit Hematology [place] [address] Markel Borjas MD [facility] DR HEMATOLOGY [place] [address] Consuelo [place] APRN [facility] DR HEMATOLOGY [place] [address] Chronic idiopathic neutropenia; Dysuria Social History Tobacco [...] 07/03/2022 1:30 PM EST Hematology Outpatient Clinic [facility] [...] TOUCH PREP, CLOT SECTION, CORE ??BIOPSY); [OSR# [id number], COLLECTED 06/23/2016, 19 SLIDES]: ?1. 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 Extremities: No edema. Labs: Hgb= 11.7 Qzfc=431 ANC= 2.5 Imaging As above - reviewed [...] EST Office Visit Hematology [place] [address] Markel Borjas MD [facility] DR HEMATOLOGY [place] [address] 11/02/2024 12:00 PM EDT Appointment [place] [address] 11/02/2024 1:00 PM EDT Office [place] [phone] Magdalena Peralta MD [facility] DR [place] [address] 03/01/2025 4:15 PM EDT Office Visit Dermatology at [address] [place] [address] Marek Bonilla MD [address] [facility], [place] [address] documented as of this encounter Procedures Procedure [...] ERAL ORDERABLES [facility] [place] [address] * (ABNORMAL) Urinalysis Microscopic Exam (07/03/2022 2:00 [...] Borjas MD URINE ORDERABLES Performing Organization Address City/[facility]/ZIP Co de Phone Number [facility] [place] [address] * (ABNORMAL) Urinalysis with reflex Culture (07/03/2022 [...] Urine Dipstick Small(A) Negative [facility] LABORATORY Appearance, Urine Dipstick Clear Clear [facility] Specific [place] Urine Automated 1.022 1.005 - 1.030 [facility] Color, Urine Dipstick Yellow Yellow [facility] Reflex to Culture Yes [facility] Clean Catch Urine 07/03/2022 2:00 PM EST 07/03/2022 2:29 PM EST Narrative Resulting Agency Comment Spec In Lab Markel Borjas MD URINE ORDERABLES Performing Organization Address City/[facility]/ZIP Co de Phone Number [facility] [place] [address] * (ABNORMAL) Comprehensive metabolic panel (non-fasting) (07/03/2022 [...] [facility] Co de Phone Number [facility] [place] [phone] documented in this encounter Visit Diagnoses Diagnosis Chronic idiopathic neutropenia Other neutropenia Dysuria documented in this encounter Care Teams Psychiatric Aide Relationship Specialty Start Date End Date Deborah Quiroga APRN PCP - General Family Medicine 03/24/16 02/04/23 documented as of this encounter
--- OUTSIDE RECORDS SUMMARY | 2024-06-20 15:53 | XMS_ITS | Encounter Summary ---
Author Organization [facility] [place] [address] Care Team Providers Care Organic Preparation Technician Name Role Phone Ashley Quirogazac Shields APRN Primary Care Provider +1 [phone] Encounter Details Date Type Department Care Team [...] EST Office Visit Hematology and Oncology at [place] [phone] Markel Borjas MD [facility] [address] [place] [address] 11/02/2024 12:00 PM EDT Appointment [place] [address] 11/02/2024 1:00 PM EDT Office [place] [address] Magdalena Peralta MD [facility] DR [place] [address] 03/01/2025 4:15 PM EDT Office Visit Dermatology at [place] [address] [place] [address] Marek Bonilla MD [address] [address], [place] [address] documented as of this encounter Visit Diagnoses Not on filedocumented in this encounter Care Teams Organic Preparation Technician Relationship Specialty Start Date End Date Deborah Quiroga APRN PCP - General Family Medicine 03/24/16 02/04/23 documented as of this encounter
--- OUTSIDE RECORDS SUMMARY | 2024-06-20 15:53 | XMS_ITS | Encounter Summary ---
[place] [address] Care Team Providers Care Hand Former Name Role Phone Ashley Quirogan Cornelius ANURAG Primary Care Provider +1 [phone] Reason for Visit * Reason Onset Date Comments Medical Care Coordination 07/27/2017 Encounter Details Date Type Department Care Team (Late st Contact Info) Description 07/27/2017 Telephone Hematology [place] [address] Alexandrea Greenwood RN Medical Care Coordination Social [...] 07/27/2017 12:25 PM EST Message received from service secretary: Injection/Infusion Referral Call placed to [facility] @ [phone] Spoke w/ [employer] Services to be provided for pt are: CBC/CMP DONE Q6 MONTHS X2 STARTING NOVEMBER 2017 TECH confirmed they would provide services to pt - I CALLED PT, LM. Pt orders faxed to [phone] documented in this encounter Plan of Treatment Upcoming Encounters Date Type Department Care Team (Late st Contact Info) Description 06/23/2024 2:00 PM EST Office Visit Hematology [place] [address] Markel Borjas MD [facility] DR HEMATOLOGY [place] [address] 11/02/2024 12:00 PM EDT Appointment Pulmonology at [place] [address] 11/02/2024 1:00 PM EDT Office Visit Rheumatology at [place] [address] Magdalena Peralta MD [facility] [place] [address] 03/01/2025 4:15 PM EDT Office Visit Dermatology at [place] [address] [place] [address] Marek Bonilla MD [address], [place] [address] documented as of this encounter Visit Diagnoses Not on filedocumented in this encounter Care Teams Hand Former Relationship Specialty Start Date End Date Deborah Quiroga APRN PCP - General Family Medicine 03/24/16 02/04/23 documented as of this encounter
--- OUTSIDE RECORDS SUMMARY | 2024-06-20 15:53 | XMS_ITS | Encounter Summary ---
Author Organization [facility] Address [facility] [place] [address] Care Team Providers Care Sales Operations Director Name Role Phone Ashley Quirogazac Shields APRN Primary Care Provider [phone] Encounter Details Date Type Department Care Team (Late st Contact Info) Description 02/06/2020 Orders Only Hematology [place] [address] Markel Borjas MD [facility] HEMATOLOGY [place] [address] Neutropenia, unspecified type Social History Tobacco Use [...] EST Office Visit Hematology [place] [address] Markel Borjas MD [facility] HEMATOLOGY [place] [address] 11/02/2024 12:00 PM EDT Appointment [place] [address] 11/02/2024 1:00 PM EDT Office [place] [address] Magdalena Peralta MD [facility] [place] [address] 03/01/2025 4:15 PM EDT Office Visit Dermatology at [place] [address] [place] [address] Marek Bonilla MD [address], [place] [address] documented as of this encounter Visit Diagnoses Diagnosis Neutropenia, unspecified type documented in this encounter Care Teams Sales Operations Director Relationship Specialty Start Date End Date Deborah Quiroga APRN PCP - General Family Medicine 03/24/16 02/04/23 documented as of this encounter
--- OUTSIDE RECORDS SUMMARY | 2024-06-20 15:53 | XMS_ITS | Encounter Summary ---
Author Organization [facility] Address [facility] [place] [address] Care Team Providers Care Cage Fighter Name Role Phone Junaid, Deborah Shields APRN Primary Care Provider +1 [phone] Reason for Visit * Reason Comments Schedule Office Case Pain right leg Encounter Details Date Type Department Care Team (Late st Contact Info) Description 12/11/2016 9:00 AM EDT Office Visit Hematology [place] [address] Markel Borjas MD [facility] [place] [address] Neutropenia, unspecified type Social History Tobacco Use [...] 12/11/2016 9:00 AM EDT [facility] [...] TOUCH PREP, CLOT SECTION, CORE ??BIOPSY); [OSR# [id number], COLLECTED 06/23/2016, 19 SLIDES]: ?1. 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 Extremities: No edema. Labs: Hgb= 13 Ozso=116 ANC= 0.5 Imaging As above - reviewed [...] EST Office Visit Hematology [place] [address] Markel Borjas MD [facility] [place] [address] 11/02/2024 12:00 PM EDT Appointment [place] [address] 11/02/2024 1:00 PM EDT Office Visit [place] [address] Magdalena Peralta MD [facility] [place] [address] 03/01/2025 4:15 PM EDT Office Visit Dermatology at [place] [address] [place] [address] Marek Bonilla MD [address], [place] [address] documented as of this encounter Results * [...] HEMATOLOGY ORDERAB LES Performing Organization Address City/[facility]/ZIP Co de Phone Number EXTERNAL [...] type documented in this encounter Care Teams Cage Fighter Relationship Specialty Start Date End Date Deborah Quiroga APRN PCP - General Family Medicine 03/24/16 02/04/23 documented as of this encounter
--- OUTSIDE RECORDS SUMMARY | 2024-06-20 15:54 | XMS_ITS | Encounter Summary ---
Author Organization Formerly [facility] Address [facility] [place] [address] Care Team Providers Care Harvester Operator Name Role Phone Junaid Deborah Shields APRN Primary Care Provider [phone]- [phone] Encounter Details Date Type Department Care Team (Latest Contact Info) Description 06/19/2016 - 06/19/2016 11:59 PM EST Hospital Encounter Radiology Library at [facility] ([place] [phone] Nitesh Pina Jr., MD [facility] [place] [address] Pain Discharge Disposition: Home Social History Tobacco [...] EST Office Visit Hematology [place] [phone] Markel Borjas MD [facility] DR [place] [address] 11/02/2024 12:00 PM EDT [place] [address] 11/02/2024 1:00 PM EDT Office Visit Rheumatology at [place] [phone] Magdalena Peralta MD [facility] [place] [address] 03/01/2025 4:15 PM EDT Office Visit Dermatology at [place] [address] [place] [address] Marek Bonilla MD [address] [place] [address] documented as of this encounter Procedures Procedure [...] Jr., MD IMG FILM LIBRARY ORD ERABLES [place], [place] documented in this encounter Visit Diagnoses Diagnosis Pain Generalized pain documented in this encounter Care Teams Harvester Operator Relationship Specialty Start Date End Date Deborah Quiroga, PLAY BACK OPERATOR PCP - General Family Medicine 03/24/16 02/04/23 documented as of this encounter
--- OUTSIDE RECORDS SUMMARY | 2024-06-20 15:54 | XMS_ITS | Encounter Summary ---
Author Organization [facility] Address [facility] [place] [address] Care Team Providers Care Coroner/Medical Examiner Name Role Phone Ashley Quirogan Cornelius ANURAG Primary Care Provider [phone]- [phone] Encounter Details Date Type Department Care Team (Late st Contact Info) Description 05/22/2016 Orders Only Cardiology at [address] [phone] Chele Randolph PA [facility] DR CARDIOLOGY DEPT. [place], [place] [phone] Aortic valve stenosis, unspecified etiology Social History [...] Visit [place]emat[place] [address] Markel Borjas MD [facility] DR HEMATOLOGY AND ONCOLOGY [place], [place] [phone] 11/02/2024 12:00 PM EDT [place] [address] 11/02/2024 1:00 PM EDT Office [place] [address] Magdalena Peralta MD [facility] [place] [address] 03/01/2025 4:15 PM EDT Office Visit Dermatology at [place] [address] [facility] [place] [phone] Marek Bonilla MD [address], [place] [address] documented as of this encounter Procedures Procedure Name Priority Date/Time Associated Diagnosis Comments CARDIAC CATHETERIZATION Routine 06/03/20 16 9:13 AM EDT Aortic valve stenosis, unspecified etiology documented in this encounter Results * CARDIAC CATHETERIZATION (06/03/2016 9:13 AM EDT) Anatomical Region Laterality Modality Other Narrative 06/03/2016 10:13 AM EDT ?[facility] ? Cardiac Catheterization/Intervention Report ? Patient Name: Purnima Thacker. ? Procedure Date: 06/03/2016 ? A #: [id number] ? Primary Physician: Fanny, Nitesh Shields ? Case #: [id number] ? File Name: [id number] ? Catheterization Order Number: [id number] ? [facility] ? Final Report [place], [place] ? Patient Name: ? Purnima M. Kirstie ? ID#: ?[id number] ? : ?1955 ? Procedure Date: ? [...] no symptom, no angina (w/i 14 days). [place] ?[employer]iovascular Society angina class was 0. This [...] Procedure Note Nitesh Escobedo MD - 09/21/2016 [facility] Cardiac Catheterization/Intervention Report Patient Name: Purnima Thacker Procedure Date: 06/03/2016 A #: [id number] Primary Physician: Nitesh Escobedo Case #: [id number] File Name: [id number] Catheterization Order Number: [id number] [facility] FinalReport [place], [place] Patient Name: Purnima Thacker ID#:[id number] :1955 Procedure Date: June 03, 2016 Case [...] with: no symptom, no angina (w/i 14 days).[place] [employer] angina class was 0. This [...] etiology documented in this encounter Care Teams Coroner/Medical Examiner Relationship Specialty Start Date End Date Deborah Quiroga, BREWER HELPER PCP - General Family Medicine 03/24/16 02/04/23 documented as of this encounter
--- OUTSIDE RECORDS SUMMARY | 2024-06-20 15:54 | XMS_ITS | Encounter Summary ---
Author Organization [facility] Address [facility] [place] [address] Care Team Providers Care Delivery Representative Name Role Phone Deborah Quiroga APRN Primary Care Provider [phone] Reason for Visit * Reason Comments Schedule Office Case * Consultation (Routine) - Closed Specialty Diagnoses / Procedures Referred By Contac t Referred To Contact Hematology and Oncology Diagnoses Leukopenia Neutropenia LEUKOPENIA W/NEUTROPENIA Procedures TC PEGFILGRASTIM, 6MG, INJECTION LEUKOPENIA W/NEUTROPENIA Alirio Esparza MD [facility] [place] [address] Mario Alberto Ramos Jr., MD [facility] DR HEMATOLOGY [place] [address] Referral ID Status Reason Start Date Expiration Date V isits Requested Visits Authorized [id number] Closed Consult, Test & Treat 07/17/2016 07/17/2017 1 1 Encounter Details Date Type Department Care Team (Late st Contact Info) Description 06/09/2016 3:00 PM EST Office Visit Hematology [place] [address] Mario Alberto Ramos Jr., MD [facility] [place] [address] Cyclical neutropenia Social History Tobacco Use Types [...] 3:00 PM EST Hematology [facility] [...] Unknown See Comment Flow Cytometry Report Unknown [id number] ... HematoPathology: Flow Cytometry DIAGNOSIS 1. No [...] EST Office Visit Hematology [place] [address] Markel Borjas MD [facility] DR HEMATOLOGY [place] [address] 11/02/2024 12:00 PM EDT [place]oint[place] [phone] 11/02/2024 1:00 PM EDT Office [place] [address] Magdalena Peralta MD [facility] [place] [address] 03/01/2025 4:15 PM EDT Office Visit Dermatology at [place] [address] [place] [address] Marek Bonilla MD [address], [place] [address] documented as of this encounter Procedures Procedure [...] (06/09/2016 4:53 PM EST) Flow Cytometry Report [id number] ?Location: The signing pathologist has (i) examined [...] by the Clinical Flow Cytometry Laboratory at [facility]. It has not been cleared [...] high complexity clinical laboratory testing. SPECIMEN PROCESSING [id number] Cells for immunophenotypic analysis were derived from [...] MD PATHOLOGY/CYTOLOGY O RDERABLES Performing Organization Address City/[facility]/ZIP Co de Phone Number [facility] [place] [address] * Scan, Peripheral Blood (06/09/2016 4:53 PM EST) Pathologist [facility] Plat estimate Normal [facility] RBC Morphology Normal [facility] Blood specimen (specimen) 06/09/2016 4:53 PM EST 06/09/2016 5:00 PM EST Narrative Resulting Agency Comment Spec In Lab Mario Alberto Ramos Jr., MD HEMATOLOGY ORDERABLE S Performing Organization Address City/[facility]/ZIP Co de Phone Number [facility] [place] [address] * (ABNORMAL) Differential, Automated (06/09/2016 4:53 PM EST) Pathologist [facility] Neutrophil % 27.7 % [facility] Neutrophil Absolute 0.48(Crit ical) 1.70 - 6.10 x10(3)/ L [facility] Comment: Matches Previous Results.. This result has been called to NOT CALLED by Jesusita Argueta on 06 09 2016 at 1817, and has not been read back. MATCHES PREVIOUS RESULTS Lymph % 57.2 % [facility] Lymphocytes Abs 1.0 0.9 - 3.2 x10(3)/mc L [facility] Monocyte % 13.3 % [facility] Monocyte Abs 0.2(L) 0.3 - 0.9 x10(3)/ L [facility] Eos % 0.6 % [facility] Eosinophils Abs 0.0 0.0 - 0.4 x10(3)/[facility] Basophil % 1.2 % [facility] Baso Absolute 0.0 0.0 - 0.1 x10(3)/[facility] Immature Gran % 0.00 % [facility] Comment: Immature granulocytes(IG's)percentage and absolute count will include metamyelocytes, myelocytes, and promyelocytes. Blood smears from CBCs yielding IG's will be scanned manually for concordance. If this scan disagrees with the automated IG or if promyelocytes are noted, a manual differential will be performed. Immature Gran Absolute 0.00 0.00 - 0.04 x10(3)/ L [facility] Blood specimen (specimen) 06/09/2016 4:53 PM EST 06/09/2016 5:00 PM EST Narrative Resulting Agency Comment Spec In Lab Mario Alberto Ramos Jr., MD HEMATOLOGY ORDERABLE S [facility] [place] [address] * (ABNORMAL) Hemogram (06/09/2016 4:53 PM EST) White Blood Cell 1.7(Criti gabrielle) 4.0 - 9.5 x10(3)/ L [facility] Red Blood [...] City/State/[facility] Co de Phone Number [facility] [place] [address] * Immunophenotyping Flow Cytometry (06/09/2016 4:53 PM EST) Immunophenotyping Flow See Comment [facility] Comment: When completed by the Pathologist, the Flow Cytometry Report ([id number]) will display under the Pathology Results section within [facility]. Specimen of unknown material (specimen) 06/09/2016 4:53 PM EST 06/09/2016 5:00 PM EST Narrative Resulting Agency Comment Spec In Lab Mario Alberto Ramos Jr., MD HEMATOLOGY ORDERABLE S [facility] [place] [address] documented in this encounter Visit Diagnoses Diagnosis Cyclical neutropenia Cyclic neutropenia documented in this encounter Care Teams Delivery Representative Relationship Specialty Start Date End Date Deborah Quiroga, MACHINE PACK ASSEMBLER PCP - General Family Medicine 03/24/16 02/04/23 documented as of this encounter
--- OUTSIDE RECORDS SUMMARY | 2024-06-20 15:54 | XMS_ITS | Encounter Summary ---
[place] [address] Care Team Providers Care Pants Presser Name Role Phone Junaid, Deborah Shields APRN Primary Care Provider [phone]- [phone] Reason for Visit * Reason Onset Date Comments Labs Only 09/16/2016 Encounter Details Date Type Department Care Team (Late st Contact Info) Description 09/16/2016 Telephone Hematology [place] [phone] Alexandrea Greenwood, RN Labs Only Social History [...] 09/16/2016 11:09 AM EST Message received from corporate secretary: Purnima is having her Neulasta done today at [facility]. ??She is wondering if we want to do a CBC prior to the injection? [phone] Borjas: CBC is fine RN spoke with Swapna at [facility] who confirms they can draw CBC on pt today, RN faxed CBC w/diff to [facility] lab at [phone] RN relayed to pt that CBC ordered had been faxed to [facility], pt will have CBC drawn today prior to neulasta injection. documented in this encounter Plan of Treatment Upcoming Encounters Date Type Department Care Team (Late st Contact Info) Description 06/23/2024 2:00 PM EST Office Visit Hematology [place] [phone] Markel Borjas MD [facility] [address] [place] [address] 11/02/2024 12:00 PM EDT Appointment [place] [address] 11/02/2024 1:00 PM EDT Office [place] [address] Magdalena Peralta MD [facility] [place] [address] 03/01/2025 4:15 PM EDT Office Visit Dermatology at [address] [address] Marek Bonilla MD [address] [facility], [address] A DERMATOLOGY [place], [place] [address] documented as of this encounter Results * [...] type documented in this encounter Care Teams Pants Presser Relationship Specialty Start Date End Date Deborah Quiroga, SIEBEL CRM DEVELOPER PCP - General Family Medicine 03/24/16 02/04/23 documented as of this encounter
--- OUTSIDE RECORDS SUMMARY | 2024-06-20 15:54 | XMS_ITS | Encounter Summary ---
Author Organization [facility] [place] [address] Care Team Providers Care Telegraph Dispatcher Name Role Phone Ashley Quirogazac Shields APRN Primary Care Provider [phone]- [phone] Encounter Details Date Type Department Care Team (Late st Contact Info) Description 09/17/2016 External Results Hematology and Oncology at [place] [phone] Alexandrea Greenwood RN Neutropenia, unspecified type Social [...] EST Office Visit Hematology [place] [address] Markel Borjas MD [facility] DR HEMATOLOGY [place] [address] 11/02/2024 12:00 PM EDT Appointment [place] [address] 11/02/2024 1:00 PM EDT Office Visit Rheumatology at [place] [phone] Magdalena Peralta MD [facility] [place] [address] 03/01/2025 4:15 PM EDT Office Visit Dermatology at [place] [address] [place] [address] Marek Bonilla MD [address], [place] [address] documented as of this encounter Procedures Procedure [...] type documented in this encounter Care Teams Telegraph Dispatcher Relationship Specialty Start Date End Date Deborah Quiroga APRN PCP - General Family Medicine 03/24/16 02/04/23 documented as of this encounter
--- OUTSIDE RECORDS SUMMARY | 2024-06-20 15:54 | XMS_ITS | Encounter Summary ---
Author Organization [facility] [place] [address] Care Team Providers Care Ventilation Mechanic Name Role Phone Ashley Quirogan Cornelius ANURAG Primary Care Provider [phone] Reason for Visit * Reason Onset Date Comments Pre Procedure Call 06/18/2016 Encounter Details Date Type Department Care Team (Late st Contact Info) Description 06/18/2016 Telephone Hematology [place] [address] Alexandrea Greenwood RN Pre Procedure [...] Visit Hematology [place] [phone] Markel Borjas MD [facility] DR HEMATOLOGY [place] [address] 11/02/2024 12:00 PM EDT Appointment [place] [address] 11/02/2024 1:00 PM EDT Office [place] [address] Magdalena Peralta MD [facility] [place] [address] 03/01/2025 4:15 PM EDT Office Visit Dermatology at [place] [address] [facility] [place] [address] Marek Bonilla MD [address], [place] [address] documented as of this encounter Visit Diagnoses Not on filedocumented in this encounter Care Teams Ventilation Mechanic Relationship Specialty Start Date End Date Deborah Quiroga APRN PCP - General Family Medicine 03/24/16 02/04/23 documented as of this encounter
--- OUTSIDE RECORDS SUMMARY | 2024-06-20 15:54 | XMS_ITS | Encounter Summary ---
Author Organization [facility] Address [facility] [place] [address] Care Team Providers Care Vb Net Programmer Name Role Phone Ashley Quirogan Cornelius ANURAG Primary Care Provider +[phone] Encounter Details Date Type Department Care Team (Late st Contact Info) Description 08/11/2016 Telephone Hematology [place] [phone] Markel Borjas MD [facility] [address] HEMATOLOGY [place] [address] Social History Tobacco Use Types Packs/Day Years [...] Visit Hematology and Oncology at [place] [phone] Markel Borjas MD [facility] DR HEMATOLOGY [place] [address] 11/02/2024 12:00 PM EDT Appointment [place] [address] 11/02/2024 1:00 PM EDT Office Visit Rheumatology at [place] [phone] Magdalena Peralta MD [facility] [place] [address] 03/01/2025 4:15 PM EDT Office Visit Dermatology at [place] [address] [facility] [place] [address] Marek Bonilla MD [address], [place] [address] documented as of this encounter Visit Diagnoses Not on filedocumented in this encounter Care Teams Vb Net Programmer Relationship Specialty Start Date End Date Deborah Quiroga APRN PCP - General Family Medicine 03/24/16 02/04/23 documented as of this encounter
--- OUTSIDE RECORDS SUMMARY | 2024-06-20 15:54 | XMS_ITS | Encounter Summary ---
[place] [address] Care Team Providers Care Career Services Officer Name Role Phone Deborah Quiroga ANURAG Primary Care Provider [phone]- [phone] Reason for Visit * Reason Onset Date Comments Medical Care Coordination 07/31/2016 Encounter Details Date Type Department Care Team (Late st Contact Info) Description 07/31/2016 Telephone Hematology [place] [address] Alexandrea Greenwood RN Medical Care Coordination Social [...] 08/04/15 RN spoke with Aydee of the [facility] lab who states they can draw pt's cbc on 08/04/15, RN faxed lab req to [phone] at Aydee's request. RN instructed pt on Dr. Borjas's direction above. Pt verbalized understanding. documented in this encounter Plan of Treatment Upcoming Encounters Date Type Department Care Team (Late st Contact Info) Description 06/23/2024 2:00 PM EST Office Visit Hematology [place] [address] Markel Borjas MD [facility] [address] HEMATOLOGY [place] [address] 11/02/2024 12:00 PM EDT Appointment Pulmonology at [place] [phone] 11/02/2024 1:00 PM EDT Office [place] [address] Magdalena Peralta MD [facility] [place] [address] 03/01/2025 4:15 PM EDT Office Visit Dermatology at [place] [address] [place] [address] Marek Bonilla MD [address], [place] A DERMATOLOGY [place], [place] [address] documented as of this encounter Visit Diagnoses Not on filedocumented in this encounter Care Teams Career Services Officer Relationship Specialty Start Date End Date Deborah Quiroga APRN PCP - General Family Medicine 03/24/16 02/04/23 documented as of this encounter
--- OUTSIDE RECORDS SUMMARY | 2024-06-20 15:54 | XMS_ITS | Encounter Summary ---
Author Organization [facility] [place] [address] Care Team Providers Care Secretary Administrative Assistant Name Role Phone Ashley Quirogazac Shields APRN Primary Care Provider [phone] Encounter Details Date Type Department Care Team (Late st Contact Info) Description 07/31/2016 External Results Hematology and Oncology at [place] [phone] Alexandrea Greenwood RN Neutropenia, unspecified type Social [...] Visit [place]emat[place] [address] Markel Borjas MD [facility] DR [place] [address] 11/02/2024 12:00 PM EDT [place] [address] 11/02/2024 1:00 PM EDT Office Visit Rheumatology at [place] [phone] Magdalena Peralta MD [facility] [place] [address] 03/01/2025 4:15 PM EDT Office Visit Dermatology at [place] [address] [place] [address] Marek Bonilla MD [address], [place] [address] documented as of this encounter Procedures Procedure [...] Blood specimen (specimen) 07/31/2016 9:40 AM EST aMrkel Borjas MD HEMATOLOGY ORDERAB L[facility] documented in this encounter Visit Diagnoses Diagnosis Neutropenia, unspecified type documented in this encounter Care Teams Secretary Administrative Assistant Relationship Specialty Start Date End Date Deborah Quiroga APRN PCP - General Family Medicine 03/24/16 02/04/23 documented as of this encounter
--- OUTSIDE RECORDS SUMMARY | 2024-06-20 15:54 | XMS_ITS | Encounter Summary ---
Author Organization [facility] Address [facility] [place] [address] Care Team Providers Care Cam Milling Machine Operator Name Role Phone Junaid, Deborah Shields APRN Primary Care Provider [phone] [phone] Reason for Visit * Auth/Cert Specialty Diagnoses / Procedures Referred By Crispin t Referred To Contact Diagnoses AVS Procedures CARDIAC CATHETERIZATION Referral ID Status Reason Start Date Expiration Date Visits Re quested Visits Authorized [id number] 1 1 Encounter Details Date Type Department Care Team (Late st Contact Info) Description 06/03/2016 6:32 AM EDT - 06/03/2016 1:10 PM EDT Hospital Encounter [place] [phone] Anjum Oliveros II, MD [facility] [place] [address] Mario Alberto Escobedo MD [facility] [place] [address] Aortic valve stenosis, unspecified etiology; Nonrheumatic aortic [...] by your doctor, do not take any yeqe-ygm-jwjmugk medicinesor herbal preparations without first discussing this with your doctor or pharmacist. There is the possibility of side effects and interactions when these are combined. Follow Up Care Who to call with questions or problems If there are any questions or problems that you think might be related to your cardiac cath or angioplasty, contact the process safety manager associate consulting engineer by calling [facility] at . * Patient Instructions* Felicia Corrigan - 06/03/2016 9:33 AM EDT Cardiology Instructions Call your doctor if: Chest pain, dyspnea, pain or swelling in legs occurs. If you have non-emergent questions between now and the time of your follow up appointments: -During 8am-5pm Wednesday through Wednesday call [phone] to speak with a nurse in the cardiology clinic -All other times call [phone] and ask to speak to the cardiology nurse associate consulting engineer. MEDICATIONS - restart your spironolactone, discontinue [...] Appointments: Primary care provider: Cardiology: Deborah Hahn, HYBRID DERIVATIVES TRADER [phone] Follow up as planned or as needed. Dr. Esparza [phone] Other follow-up appointment: Hematology - Dr. Mario [...] EST Office Visit Hematology [place] [phone] Markel Borjas MD [facility] DR [place] [address] 11/02/2024 12:00 PM EDT Appointment [place] [phone] 11/02/2024 1:00 PM EDT Office Visit [place] [phone] Magdalena Peralta MD [facility] [place] [address] 03/01/2025 4:15 PM EDT Office Visit Dermatology at [address] [place] [phone] Marek Bonilla MD [address], [place] [address] documented as of this encounter Procedures Procedure [...] HOLD (06/03/2016 11:45 AM EDT) Pathologist [facility] Green Hold Sample in lab. [facility] Blood specimen (specimen) Venous Draw / Unknown 06/03/2016 11:45 AM EDT 06/03/2016 12:12 PM EDT Mario Alberto Escobedo MD CHEMISTRY ORDERABLES [facility] [place] [address] * Methylmalonic acid, serum (06/03/2016 11:45 AM EDT) Pathologist [facility] Methylmalonic Acid (NOVEMBER) 0.21 <=0.40 nmol/mL [facility] Comment: Test Performed by: [facility] [place] [id number] Wrist Closer: Raymond Chaudhry II, M.D., Ph.D. Blood specimen (specimen) 06/03/2016 11:45 AM EDT 06/03/2016 1:57 PM EDT Narrative Resulting Agency Comment Spec In Lab Mario Alberto Escobedo MD LAB SEND OUT ORDERAB LES Performing Organization Address [facility]/ZIP Co de Phone Number [facility] [place] [address] * Granulocyte Antibody (06/03/2016 11:45 AM EDT) Pathologist [facility] Granulocyte Ab (NOVEMBER) Negative Not Applicable [facility] Comment: ADDITIONAL INFORMATION Method: Immunofluorescent Assay Performing Laboratory CLIA# [id number] This test was developed and its performance characteristics determined by [facility] in a manner consistent with CLIA requirements. This test has not been cleared or approved by the U.S. Food and Drug Administration. Test Performed by: [facility] [place] [address] Wrist Closer: Raymond Chaudhry II, M.D., Ph.D. Blood specimen (specimen) 06/03/2016 11:45 AM EDT 06/03/2016 1:57 PM EDT Narrative Resulting Agency Comment Spec In Lab Mario Alberto Escobedo MD LAB SEND OUT ORDERAB LES Performing Organization Address City/[facility] Co de Phone Number [facility] [place] [address] * TSH (06/03/2016 11:45 AM EDT) Thyroid Stimulating Hormone 2.18 0.27 - 4.20 mcIU/mL [facility] Blood specimen (specimen) 06/03/2016 11:45 AM EDT 06/03/2016 12:11 PM EDT Narrative Resulting Agency Comment Spec In Lab Mario Alberto Escobedo MD CHEMISTRY ORDERABLES Performing Organization Address [facility]/ZIP Co de Phone Number [facility] [place] [address] * Homocysteine Total, Plasma (06/03/2016 11:45 AM EDT) Homocystine 9 <=15 mcmol/L [facility] Blood specimen (specimen) 06/03/2016 11:45 AM EDT 06/03/2016 12:11 PM EDT Narrative Resulting Agency Comment Spec In Lab Mario Alberto Escobedo MD CHEMISTRY ORDERABLES Performing Organization Address [facility] Co de Phone Number [facility] [place] [address] * Folate, serum (06/03/2016 11:45 AM EDT) Folate >20.0 4.8 - 24.2 ng/mL [facility] Blood specimen (specimen) 06/03/2016 11:45 AM EDT 06/03/2016 12:04 PM EDT Narrative Resulting Agency Comment Spec In Lab Mario Alberto Escobedo MD CHEMISTRY ORDERABLES Performing Organization Address [facility] Co de Phone Number [facility] [place] [address] * (ABNORMAL) Sedimentation rate (06/03/2016 11:45 AM EDT) Sedimentation Rate Automated 41(H) 0 - 20 mm/hr [facility] Blood specimen (specimen) 06/03/2016 11:45 AM EDT 06/03/2016 12:04 PM EDT Narrative Resulting Agency Comment Spec In Lab Mario Alberto Escobedo MD HEMATOLOGY ORDERABLE S [facility] [place] [address] * Lactate Dehydrogenase (06/03/2016 11:45 AM EDT) Lactate Dehydrogenase 164 110 - 220 unit/L [facility] Blood specimen (specimen) 06/03/2016 11:45 AM EDT 06/03/2016 12:11 PM EDT Narrative Resulting Agency Comment Spec In Lab Mario Alberto Escobedo MD CHEMISTRY ORDERABLES [facility] [place] [address] * Comprehensive metabolic panel (non-fasting) (06/03/2016 11:45 AM EDT) Glucose 90 65 - 199 mg/dL [facility] Comment:Diabetes: >=200 mg/d L plus symptoms Blood Urea Nitrogen 11 8 - 18 mg/dL [facility] Creatinine 0.83 0.70 - 1.20 mg/dL [facility] Comment: Please note that the pediatric reference intervals supplied above were not validated at [facility]. Results from pediatric patients should be interpreted [...] 107 mmol/L [facility] Carbon Dioxide 25 22 - 31 mmol/L [facility] Anion Gap 14 5 - 15 mmol/L [facility] Calcium 9.2 8.5 - 10.5 mg/dL [facility] Protein, Total 7.0 6.1 - 8.0 gm/dL [facility] Albumin 4.0 3.2 - 5.2 gm/dL [facility] Aspartate Aminotransferase 17 0 - 30 unit/L [facility] Alanine Aminotransferase 9 0 - 30 unit/L [facility] Alkaline Phosphatase 81 40 - 104 unit/L [facility] Bilirubin, Total 0.4 0.2 - 1.3 mg/dL [facility] Bilirubin, Direct 0.1 0.0 - 0.3 mg/dL [facility] Est Glomerular Filtration [...] the following links into your internet browser. [email or web address] Blood specimen (specimen) 06/03/2016 11:45 AM EDT 06/03/2016 12:11 PM EDT Narrative Resulting Agency Comment Spec In Lab Mario Alberto Escobedo MD CHEMISTRY ORDERABLES [facility] [place] [address] documented in this encounter Visit Diagnoses Diagnosis [...] Hernandez) documented in this encounter Care Teams Cam Milling Machine Operator Relationship Specialty Start Date End Date Deborah Quiroga, HYBRID DERIVATIVES TRADER PCP - General Family Medicine 03/24/16 02/04/23 documented as of this encounter
--- OUTSIDE RECORDS SUMMARY | 2024-06-20 15:54 | XMS_ITS | Encounter Summary ---
Author Organization [facility] Address [facility] [place] [address] Care Team Providers Care Landscaping Crew Leader Name Role Phone Deborah Quiroga APRN Primary Care Provider [phone] [phone] Encounter Details Date Type Department Care Team (Latest Contact Info) Description 05/19/2016 11:52 AM EDT - 05/19/2016 11:59 PM EDT Hospital Encounter XRay at [address] [place] [address] Alirio Esparza MD Nonrheumatic aortic valve stenosis [...] Office Visit Hematology [place] [address] Markel Borjas MD [facility] DR [place] [address] 11/02/2024 12:00 PM EDT Appointment [place] [address] 11/02/2024 1:00 PM EDT Office Visit [place] [address] Magdalena Peralta MD [facility] [place] [address] 03/01/2025 4:15 PM EDT Office Visit Dermatology at [address] [place] [phone] Marek Bonilla MD [address], [place] [address] documented as of this encounter Procedures Procedure [...] disorders documented in this encounter Care Teams Landscaping Crew Leader Relationship Specialty Start Date End Date Deborah Quiroga, ANURAG PCP - General Family Medicine 03/24/16 02/04/23 documented as of this encounter
--- OUTSIDE RECORDS SUMMARY | 2024-06-20 15:54 | XMS_ITS | Encounter Summary ---
Author Organization [facility] Address [facility] [place] [address] Care Team Providers Care Vp Customer Development Name Role Phone Ashley Quirogazac Shields APRN Primary Care Provider [phone] Encounter Details Date Type Department Care Team (Latest Contact Info) Description 08/18/2016 4:40 PM EST Laboratory Appointment Lab at [place] [phone] Aortic valve stenosis, unspecified etiology Social History [...] Visit Hematology and Oncology at [place] [phone] Markel Brojas MD [facility] [place] [address] 11/02/2024 12:00 PM EDT Appointment Pulmonology at [place] [phone] 11/02/2024 1:00 PM EDT Office Visit Rheumatology at [place] [phone] Magdalena Peralta MD [facility] [place] [address] 03/01/2025 4:15 PM EDT Office Visit Dermatology at [place] [address] [place] [phone] Marek Bonilla MD [address], [place] [address] documented as of this encounter Procedures Procedure Name Priority Date/Time Associated Diagnosis Comments ABORH RECHECK STATUS Routine 08/18/2016 4:50 PM EST TYPE AND SCREEN, SDP (FUTURE SURGERY, [facility] SAME DAY PROGRAM ONLY) Routine 08/18/2016 [...] BANK LAB BETH ALEJO [facility] [place] [address] * Antibody screen (08/18/2016 4:50 PM EST) Ab Screen Interp Negative [facility] Expires at [id number] on: 09/24/2016 [facility] Comment: Corrected from 09/17/16 12:00 [Unknown] on 09/09/16 02:32 by Shireen Treviño Blood specimen (specimen) 08/18/2016 4:50 PM EST 08/18/2016 5:11 PM EST Narrative Resulting Agency Comment Spec In Lab Alirio Esparza MD BLOOD BANK LAB BETH ORTEGAROMERO Performing Organization Address [facility] Co de Phone Number [facility] [place] [address] * ABO/Rh Typing (08/18/2016 4:50 PM EST) Pathologist [facility] ABORH Type B Pos [facility] Blood specimen (specimen) 08/18/2016 4:50 PM EST 08/18/2016 5:11 PM EST Narrative Resulting Agency Comment Spec In Lab Alirio Esparza MD BLOOD BANK LAB BETH ORTEGAROMERO Performing Organization Address [facility] de Phone Number [facility] [place] [address] * Basic Metabolic Panel (non-fasting) (08/18/2016 4:50 PM EST) [facility] Glucose 82 65 - 199 mg/dL [facility] [...] the following links into your internet browser. [email or web address] Blood specimen (specimen) 08/18/2016 4:50 PM EST 08/18/2016 5:03 PM EST Narrative Resulting Agency Comment Spec In Lab Alirio Esparza MD CHEMISTRY ORDERABLE S Performing Organization Address City/State/[facility] Co de Phone Number [facility] [place] [address] documented in this encounter Visit Diagnoses Diagnosis Aortic valve stenosis, unspecified etiology documented in this encounter Care Teams Vp Customer Development Relationship Specialty Start Date End Date Deborah Quiroga APRN PCP - General Family Medicine 03/24/16 02/04/23 documented as of this encounter
--- OUTSIDE RECORDS SUMMARY | 2024-06-20 15:54 | XMS_ITS | Encounter Summary ---
Author Organization [facility] [place] [address] Care Team Providers Care Telephone Solicitor Supervisor Name Role Phone Ashley Quirogazac Shields APRN Primary Care Provider [phone] [phone] Encounter Details Date Type Department Care Team (Late st Contact Info) Description 07/31/2016 Orders Only Hematology and Oncology at [place] [phone] Alexandrea Greenwood RN Neutropenia, unspecified type Social [...] Office Visit Hematology [place] [address] Markel Borjas MD [facility] [address] [place] [address] 11/02/2024 12:00 PM EDT Appointment [place] [address] 11/02/2024 1:00 PM EDT Office Visit Rheumatology at [place] [phone] Magdalena Peralta MD [facility] [place] [address] 03/01/2025 4:15 PM EDT Office Visit Dermatology at [place] [address] [place] [address] Marek Bonilla MD [address], [place] [address] documented as of this encounter [...] type documented in this encounter Care Teams Telephone Solicitor Supervisor Relationship Specialty Start Date End Date Deborah Quiroga APRN PCP - General Family Medicine 03/24/16 02/04/23 documented as of this encounter
--- OUTSIDE RECORDS SUMMARY | 2024-06-20 15:54 | XMS_ITS | Encounter Summary ---
Author Organization [facility] [place] [address] Care Team Providers Care Ditcher Name Role Phone Deborah Quiroga APRN Primary Care Provider [phone] [phone] Encounter Details Date Type Department Care Team (Latest Contact Info) Description 07/10/2016 2:54 PM EST - 07/10/2016 11:59 PM EST Hospital [place] [phone] Discharge Disposition: Home Social History Tobacco Use [...] EST Office Visit [place] [address] Markel Borjas MD [facility] [address] HEMATOLOGY [place] [address] 11/02/2024 12:00 PM EDT Appointment [place] [phone] 11/02/2024 1:00 PM EDT Office [place] [phone] Magdalena Peralta MD [facility] [place] [address] 03/01/2025 4:15 PM EDT Office Visit Dermatology at [address] [place] [phone] Marek Bonilla MD [address], [place] [address] documented as of this encounter Procedures Procedure Name Priority Date/Time Associated Diagnosis Comments BONE MARROW FINAL REPORT Routine 07/10/2016 3:43 PM EST documented in this encounter Results * Bone Marrow Final Report (07/10/2016 3:43 PM EST) Final Diagnosis [id number] ?Location: [facility] The signing pathologist has (i) examined the relevant preparation(s) for the specimen(s) and (ii) rendered or confirmed the diagnosis(es). . ? Bone Marrow Final DIAGNOSIS BONE MARROW (PERIPHERAL SMEAR, ASPIRATE SMEAR, TOUCH PREP, CLOT SECTION, CORE BIOPSY); [OSR# [id number], COLLECTED 06/23/2016, 19 SLIDES]: ?? 1. 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 Polytypic plasma cell staining, high background Lambda ?Polytypic plasma cell staining, high background Block: ? B2 (Core biopsy 2) Fixative: ?? Formalin ANTIBODY: ?? RESULT/COMMENT CD3 ? Scattered small lymphocytes and lymphoid aggregates highlighted CD20 ?Few scattered small lymphocytes stain ( ?? <CD3 in aggregates) CD138 ? Scattered plasma cells represent 3-4% of the cellularity [place] ? Polytypic plasma cell staining, high background Lambda ?Polytypic plasma cell staining, high background Note: The immunoperoxidase stains reported above were developed and their performance characteristics determined by [facility]. ??They have [...] CONSULTATION CASE A - 19 slides labeled [id number], collection date 06/23/2016. [id number] Report to: [facility] Surgical Pathology Department [facility], [facility], 2nd Floor [address] [place], [place] ??[address] 07/13/2016 11:38 AM EST [facility] Consult Case 07/10/2016 3:43 PM EST 07/10/2016 3:43 PM EST Nitesh Pina Jr., MD PATHOLOGY/CYTOLOGY O RDERABLES [facility] [place] [address] documented in this encounter Visit Diagnoses Not on filedocumented in this encounter Care Teams Ditcher Relationship Specialty Start Date End Date Deborah Quiroga APRN PCP - General Family Medicine 03/24/16 02/04/23 documented as of this encounter
--- OUTSIDE RECORDS SUMMARY | 2024-06-20 15:54 | XMS_ITS | Encounter Summary ---
Author Organization [facility] Address [facility] [address] Care Team Providers Care Political Cartoonist Name Role Phone Ashley Quirogan Cornelius ANURAG Primary Care Provider +1- [phone] Encounter Details Date Type Department Care Team (Late st Contact Info) Description 06/16/2016 Orders Only [place] [phone] Nitesh Pina Jr., MD [facility] [address] HEMATOLOGY [place] [address] Cyclical neutropenia Social History Tobacco Use Types [...] Visit [place] [phone] Markel Borjas MD [facility] [address] HEMATOLOGY [place] [address] 11/02/2024 12:00 PM EDT Appoint[place] [phone] 11/02/2024 1:00 PM EDT Office [place] [address] Magdalena Peralta MD [facility] [place] [address] 03/01/2025 4:15 PM EDT Office Visit Dermatology at [place] [address] [place] [phone] Marek Bonilla MD [address], [place] [address] documented as of this encounter Visit Diagnoses Diagnosis Cyclical neutropenia Cyclic neutropenia documented in this encounter Care Teams Political Cartoonist Relationship Specialty Start Date End Date Deborah Quiroga APRN PCP - General Family Medicine 03/24/16 02/04/23 documented as of this encounter
--- OUTSIDE RECORDS SUMMARY | 2024-06-20 15:54 | XMS_ITS | Encounter Summary ---
[place] [address] Care Team Providers Care Checking Department Supervisor Name Role Phone Deborah Quiroga ANURAG Primary Care Provider [phone]- [phone] Reason for Visit * Reason Onset Date Comments Medical Care Coordination 07/17/2016 Encounter Details Date Type Department Care Team ([facility] Contact Info) Description 07/17/2016 Telephone Hematology [place] [phone] Alexandrea Greenwood RN Medical Care Coordination Social [...] 07/17/2016 12:07 PM EST Message received from loan secretary: Injection/Infusion Referral Call placed to [phone]). Spoke w/ Pasquale. Services to be provided for pt are: Labs @ 10am ([facility]) & Neulasta @ 11am on 07/20/16, CBC only on 07/30/16 Pasquale confirmed they would provide services to pt and I left [facility] for pt to call for appt info. Pt demographics, office note, med list and orders faxed to [facility] & [facility] documented in this encounter Plan of Treatment Upcoming Encounters Date Type Department Care Team (Late st Contact Info) Description 06/23/2024 2:00 PM EST Office Visit [place]ematology [place] [address] Markel Borjas MD [facility] [address] [place] [address] 11/02/2024 12:00 PM EDT Appointment [place] [phone] 11/02/2024 1:00 PM EDT Office [place] [phone] Magdalena Peralta MD [facility] [place] [address] 03/01/2025 4:15 PM EDT Office Visit Dermatology at [place] [address] [facility] [place] [phone] Marek Bonilla MD [address] [place] [address] documented as of this encounter Visit Diagnoses Not on filedocumented in this encounter Care Teams Checking Department Supervisor Relationship Specialty Start Date End Date Deborah Quiroga APRN PCP - General Family Medicine 03/24/16 02/04/23 documented as of this encounter
--- OUTSIDE RECORDS SUMMARY | 2024-06-20 15:54 | XMS_ITS | Encounter Summary ---
Author Organization [facility] Address [facility] [place] [address] Care Team Providers Care Aircraft Refueler Name Role Phone Junaid Deborah Shields APRN Primary Care Provider Encounter Details Date Type Department Care Team (Late st Contact Info) Description 07/17/2016 9:00 AM EST Office Visit Hematology [place] [address] Markel Borjas MD [facility] [address] [place] [address] Neutropenia, unspecified type Social History Tobacco Use [...] AM EST Hematology Outpatient Clinic [facility] Hematology Outpatient Consult Note CC: 60 [...] TOUCH PREP, CLOT SECTION, CORE ??BIOPSY); [OSR# [id number], COLLECTED 06/23/2016, 19 SLIDES]: ?1. ??Normocellular marrow [...] a clonal lymphoproliferative or myeloproliferative disorder (OSR# [id number]) Chromosome analysis on the marrow aspirate revealed [...] Labs will be drawn at [facility] next week Imaging As above - [...] leukopenia. Will consi kanwal talking to pt's stringed instrument repairer about a switch from ACEI to ARB [...] the original note were not included. N [facility] [place] [place] [place] [phone] Date: 07/17/16 Patient Name: Purnima Thacker : 1955 Diagnosis: neutropenia Referral to [site]: [facility] Orders: ? Labs: Fax results to . [x] Draw CBC, copper level, CMV PCR, mononucleosis screen on 07/20 Repeat CBC on 07/30 (to measure response of WBC after Neulasta) ? Growth factor: [x] Neulasta 6mg SQ injection x 1 on 07/20/2016 Signature: Markel Borjas MD beeper # [id number] documented in this encounter Plan of Treatment Upcoming Encounters Date Type Department Care Team (Late st Contact Info) Description 06/23/2024 2:00 PM EST Office Visit Hematology [place] [address] Markel Borjas MD [facility] [address] [place] [address] 11/02/2024 12:00 PM EDT Appointment [place] [address] 11/02/2024 1:00 PM EDT Office [place] [address] Magdalena Peralta MD [facility] [place] [address] 03/01/2025 4:15 PM EDT Office Visit Dermatology at [place] [address] [place] [address] Marek Bonilla MD [address], [place] [address] documented as of this encounter Results * (ABNORMAL) CBC (with Diff) (07/31/2016 9:40 AM EST) [facility] White Blood Cell 2.23(EXTER NAL/ABN) 4.4 - [...] * Mononucleosis Screen (07/20/2016 10:30 AM EST) [facility] Mononucleosis Screen neg neg - neg EXTERNAL LAB Blood specimen (specimen) 07/20/2016 10:30 AM EST Markel Borjas MD IMMUNOLOGY ORDERAB LES EXTERNAL LAB * Copper, serum (07/20/2016 10:30 AM EST) [facility] Copper (NOVEMBER) 1.09 0.75 - 1.45 EXTERNAL [...] MOLECULAR ORDERABL ES Performing Organization Address [facility] Co de Phone Number EXTERNAL [...] HEMATOLOGY ORDERAB LES Performing Organization Address [facility] Co de Phone Number EXTERNAL LAB documented in this encounter Visit Diagnoses Diagnosis Neutropenia, unspecified type documented in this encounter Care Teams Aircraft Refueler Relationship Specialty Start Date End Date Deborah Quiroga, HAZMAT TRUCK DRIVER PCP - General Family Medicine 03/24/16 02/04/23 documented as of this encounter
--- OUTSIDE RECORDS SUMMARY | 2024-06-20 15:54 | XMS_ITS | Encounter Summary ---
Author Organization [facility] Address [facility] [place] [address] Care Team Providers Care Marketing Community Liaison Name Role Phone Ashley Quirogazac Shields APRN Primary Care Provider +1 [phone] Encounter Details Date Type Department Care Team (Late st Contact Info) Description 08/18/2016 Orders Only Cardiac Surgery at [place] [phone] Alirio Esparza MD Aortic valve stenosis, unspecified [...] EST Office Visit Hematology and Oncology at [place] [phone] Markel Borjas MD [facility] [address] [place] [address] 11/02/2024 12:00 PM EDT Appointment Pulmonology at [place] [phone] 11/02/2024 1:00 PM EDT Office Visit Rheumatology at [place] [phone] Magdalena Peralta MD [facility] [place] [address] 03/01/2025 4:15 PM EDT Office Visit Dermatology at [place] [address] [place] [address] Marek Bonilla MD [address], [address] DERMATOLOGY [place], [place] [phone] documented as of this encounter Results * Basic Metabolic Panel (non-fasting) (08/18/2016 4:50 PM EST) [facility] Glucose 82 65 - 199 mg/dL PORTER [...] the following links into your internet browser. [email or web address] Blood specimen (specimen) 08/18/2016 4:50 PM EST 08/18/2016 5:03 PM EST Narrative Resulting Agency Comment Spec In Lab Alirio Esparza MD CHEMISTRY ORDERABLE S [facility] [place] [id number] documented in this encounter Visit Diagnoses Diagnosis Aortic valve stenosis, unspecified etiology documented in this encounter Care Teams Marketing Community Liaison Relationship Specialty Start Date End Date Deborah Quiroga APRN PCP - General Family Medicine 03/24/16 02/04/23 documented as of this encounter
--- OUTSIDE RECORDS SUMMARY | 2024-06-20 15:54 | XMS_ITS | Encounter Summary ---
Author Organization [facility] Address [facility] [place] [address] Care Team Providers Care Non Destructive Testing Scientist Name Role Phone Ashley Quirogan Cornelius ANRUAG Primary Care Provider +1- [phone] Encounter Details Date Type Department Care Team (Late st Contact Info) Description 06/09/2016 Orders Only H[place]ology [place] [phone] Nitesh Pina Jr., MD [facility] [address] [place] [address] Cyclical neutropenia Social History Tobacco Use Types [...] EST Office Visit [place]ology [place] [phone] Markel Borjas MD [facility] [address] [place] [address] 11/02/2024 12:00 PM EDT Appoint[place] [phone] 11/02/2024 1:00 PM EDT Office [place] [address] Magdalena Peralta MD [facility] [place] [address] 03/01/2025 4:15 PM EDT Office Visit Dermatology at [place] [address] [place] [address] Marek Bonilla MD [address], [place] [address] documented as of this encounter Results * Immunophenotyping Flow Cytometry (06/09/2016 4:53 PM EST) Immunophenotyping Flow See Comment [facility] Comment: When completed by the Pathologist, the Flow Cytometry Report ([id number]) will display under the Pathology Results section within eD. Specimen of unknown material (specimen) 06/09/2016 4:53 PM EST 06/09/2016 5:00 PM EST Narrative Resulting Agency Comment Spec In Lab Nitesh Pina Jr., MD HEMATOLOGY ORDERABLE S [facility] [place] [address] documented in this encounter Visit Diagnoses Diagnosis Cyclical neutropenia Cyclic neutropenia documented in this encounter Care Teams Non Destructive Testing Scientist Relationship Specialty Start Date End Date Deborah Quiroga APRN PCP - General Family Medicine 03/24/16 02/04/23 documented as of this encounter
--- OUTSIDE RECORDS SUMMARY | 2024-06-20 15:54 | XMS_ITS | Encounter Summary ---
[place] [address] Care Team Providers Care Gambling Monitor Name Role Phone Deborah Quiroga ANURAG Primary Care Provider +1 [phone] Encounter Details Date Type Department Care Team (Late st Contact Info) Description 09/11/2016 Orders Only Hematology [place] [address] Alexandrea Greenwood RN Social History [...] the original note were not included. N [facility] LE[facility] HEM ONC [facility] [phone] Date: 09/11/16 Patient Name: Onesimo Thacker : 1955 Diagnosis: Neutropenia Referral to [site]: [facility] Orders: ? Growth factor: [x] Neulasta 6mg SQ injection x 1 on 09/16/16 Signature: Markel Borjas MD beeper # [id number] Co-signature [if needed]: documented in this encounter Plan of Treatment Upcoming Encounters Date Type Department Care Team (Late st Contact Info) Description 06/23/2024 2:00 PM EST Office Visit Hematology [place] [address] Markel Borjas MD [facility] [address] [place] [address] 11/02/2024 12:00 PM EDT Appointment [place] [address] 11/02/2024 1:00 PM EDT Office [place] [address] Magdalena Peralta MD [facility] [place] [address] 03/01/2025 4:15 PM EDT Office Visit Dermatology at [place] [address] [place] [address] Marek Bonilla MD [address] [facility] [facility], [place] [address] documented as of this encounter Procedures Procedure Name Priority Date/Time Associated Diagnosis Comments TRANSESOPHAGEAL ECHOCARDIOGRAM (GAVINO) Routine 09/22/2016 documented in this encounter Results * Transesophageal Echocardiogram (GAVINO) (09/22/2016) Anatomical Region Laterality Modality Other 09/22/2016 Narrative 09/22/2016 8:30 AM EST Procedure: ?Transesophageal Echocardiogram Patient: ?ANDREW ONESIMO M ? (Age): 1955(61y) Med Rec#: ? [id number] ?Sex: ?M ? Site Loc: ? [facility] ?Ht / Wt: ??(cm)/ (kg) ? Pt. Loc: ?OR ? Study Date: ?? 09/21/2016 ?Pt. Type: Tape: ? Referring: Alirio Francisco Reading: Henrik Yarbrough ([id number]) Accounting System Expert: Jacobo Patel ([id number]) Interpreting Fellow: Jacobo Patel ([id number]) Diagnosis: *Aortic valve disorders (424.1) CPT Codes: *Echo GAVINO Full (77377) Indication: ?? AVR for severe Rhythm: ? [...] ? Mid-Inferior ?Normal ? Mid-Inferoseptal ?Normal ? [place]-Septal ? Normal ? [place]-Anterior ? Normal ? [place]-Lateral ?Normal ? [place]-Inferior ? Normal ? [place]-Tip ?Normal ? This report has been electronically signed by: Henrik Yarbrough M.D. ? 09/22/2016 08:30:41 Images reviewed and interpretation verified [facility] Cardiac Ultrasound Laboratory Procedure Note Henrik Yarbrough MD - 09/22/2016 Procedure: Transesophageal Echocardiogram Patient: ANDREW Mejias (Age): 1955(61y) Med Rec#: [id number] Sex: M Site Loc: [facility] [place] Ht / Wt: (cm)/ (kg) Pt. Loc: OR Study Date: 09/21/2016 Pt. 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 Gvaino Procedures: The GAVINO probe was passed in the operating room by the anesthesiologist after the patient was sedated with general anesthesia. Misc: See remainder of report for additional findings. Wall Motion: Segment Name Rest Base-Anteroseptal Normal Base-Anterior Normal Base-Anterolateral Normal Base-Posterolateral Normal Base-Inferior Normal Base-Inferoseptal Normal Mid-Anteroseptal Normal Mid-Anterior Normal Mid-Anterolateral Normal Mid-Posterolateral Normal Mid-Inferior Normal Mid-Inferoseptal Normal [place]-Septal Normal [place]-Anterior Normal [place]-Lateral Normal [place]-Inferior Normal [place]-Tip Normal This report has been electronically signed by: Henrik Yarbrough M.D. 09/22/2016 08:30:41 Images reviewed and interpretation verified [facility] Cardiac Ultrasound Laboratory Unknown ECHO ORDERABLES documented in this encounter Visit Diagnoses Not on filedocumented in this encounter Care Teams Gambling Monitor Relationship Specialty Start Date End Date Deborah Quiroga APRN PCP - General Family Medicine 03/24/16 02/04/23 documented as of this encounter
--- OUTSIDE RECORDS SUMMARY | 2024-06-20 15:54 | XMS_ITS | Encounter Summary ---
Author Organization [facility] [place] [address] Care Team Providers Care Typo Machine Operator Name Role Phone Deborah Quiroga APRN Primary Care Provider [phone] [phone] Encounter Details Date Type Department Care Team (Late st Contact Info) Description 08/18/2016 4:20 PM EST Clinical Support Same Day at [facility] [place] [phone] Social History Tobacco Use Types Packs/Day Years [...] EST Office Visit Hematology [place] [address] Markel Borjas MD [facility] [address] [place] [address] 11/02/2024 12:00 PM EDT Appointment Pulmonology at [place] [address] 11/02/2024 1:00 PM EDT Office Visit Rheumatology at [place] [phone] Magdalena Peralta MD [facility] [place] [address] 03/01/2025 4:15 PM EDT Office Visit Dermatology at [address] [place] [address] Marek Bonilla MD [address], [place] [address] documented as of this encounter Visit Diagnoses Not on filedocumented in this encounter Care Teams Typo Machine Operator Relationship Specialty Start Date End Date Deborah Quiroga APRN PCP - General Family Medicine 03/24/16 02/04/23 documented as of this encounter
--- OUTSIDE RECORDS SUMMARY | 2024-06-20 15:54 | XMS_ITS | Encounter Summary ---
Author Organization [facility] Address [facility] Erika [facility] [place] [address] Care Team Providers Care Stencil Cutter Machine Name Role Phone Ashley Quirogazac Shields APRN Primary Care Provider [phone]- [phone] Encounter Details Date Type Department Care Team (Late st Contact Info) Description 07/03/2016 External Results Hematology [place] [phone] Matthew Cervantes, DO [address] [place] [phone] Social History Tobacco Use Types Packs/Day Years [...] EST Office Visit Hematology [place] [address] Markel Borjas MD [facility] [address] [place] [address] 11/02/2024 12:00 PM EDT Appointment [place] [address] 11/02/2024 1:00 PM EDT Office [place] [address] Magdalena Peralta MD [facility] [place] [address] 03/01/2025 4:15 PM EDT Office Visit Dermatology at [place] [address] [place] [address] Marek Bonilla MD [address], [address] [place] [address] documented as of this encounter Procedures Procedure Name Priority Date/Time Associated Diagnosis Comments BONE MARROW ASPIRATION PERFO RMED WITH BONE MARRROW BIOPSY Routine 06/28/2016 documented in this encounter Results * BONE MARROW ASPIRATION PREFORMED WITH BONE MARRROW BIOPSY (06/28/2016) Matthew Cervantes DO GENERAL SURGI DANIEL ORDERABLES documented in this encounter Visit Diagnoses Not on filedocumented in this encounter Care Teams Stencil Cutter Machine Relationship Specialty Start Date End Date Deborah Quiroga APRN PCP - General Family Medicine 03/24/16 02/04/23 documented as of this encounter
--- OUTSIDE RECORDS SUMMARY | 2024-06-20 15:54 | XMS_ITS | Encounter Summary ---
[place] [address] Care Team Providers Care Inside B2B Sales Name Role Phone Deborah Quiroga APRN Primary Care Provider [phone]- [phone] Reason for Visit * Reason Onset Date Comments Prior Authorization 09/11/2016 Neulasta Encounter Details Date Type Department Care Team (Late st Contact Info) Description 09/11/2016 Telephone Hematology [place] [address] Monica Wick Prior Authorization (Neulasta ) Social [...] AM EST Prior Auth for Neulasta (Approved) [facility] is a covered facility under the members plan. ID# [id number] Call placed to [phone] Rationale: Can you please start a PA for this pt to receive as outpatient at [facility] on 09/16/16? 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 ??Her last ANC was 0.56 (or 560) on 08/04/16. ??This will need to be approved through her medical as out patient. J code for neulasta. ?? [id number]. Spoke w/ Anna Marie Call Reference [id number] Copay: $ Deductible is not met, patient will have out of pocket costs until deductible is met. documented in this encounter Plan of Treatment Upcoming Encounters Date Type Department Care Team (Late st Contact Info) Description 06/23/2024 2:00 PM EST Office Visit Hematology and Oncology at [place] [phone] Markel Borjas MD [facility] DR [place] [address] 11/02/2024 12:00 PM EDT Appointment Pulmonology at [address] 11/02/2024 1:00 PM EDT Office Visit Rheumatology at [place] [phone] Magdalena Peralta MD [facility] [place] [address] 03/01/2025 4:15 PM EDT Office Visit Dermatology at [address] [place] [address] Maerk Bonilla MD [address], [place] [address] documented as of this encounter Visit Diagnoses Not on filedocumented in this encounter Care Teams Inside B2B Sales Relationship Specialty Start Date End Date Deborah Quiroga APRN PCP - General Family Medicine 03/24/16 02/04/23 documented as of this encounter
--- OUTSIDE RECORDS SUMMARY | 2024-06-20 15:54 | XMS_ITS | Encounter Summary ---
Author Organization [facility] [place] [address] Care Team Providers Care Director Of Medical Services Name Role Phone Ashley Quirogazac Shields APRN Primary Care Provider [phone] [phone] Encounter Details Date Type Department Care Team (Late st Contact Info) Description 07/22/2016 External Results Hematology and Oncology at [place] [phone] Alexandrea Greenwood RN Neutropenia, unspecified type Social [...] EST Office Visit [place] [address] Markel Borjas MD [facility] [address] [place] [address] 11/02/2024 12:00 PM EDT [place] [address] 11/02/2024 1:00 PM EDT Office Visit Rheumatology at [place] [phone] Magdalena Peralta MD [facility] [place] [address] 03/01/2025 4:15 PM EDT Office Visit Dermatology at [place] [address] [place] [address] Marek Bonilla MD [address], [place] [address] documented as of this encounter Procedures Procedure Name Priority Date/Time Associated Diagnosis Comments COPPER, SERUM Routine 07/20/2016 10:30 AM EST Neutropenia, unspecified type CMV PCR, QUANTITATIVE Routine 07/20/2016 10:30 AM EST Neutropenia, unspecified type MONONUCLEOSIS SCREEN (APD/[facility]ANN[facility]) Routine 07/20/2016 10:30 AM EST Neutropenia, unspecified [...] this encounter Care Teams Director Of Medical Services Relationship Specialty Start Date End Date Deborah Quiroga APRN PCP - General Family Medicine 03/24/16 02/04/23 documented as of this encounter
--- OUTSIDE RECORDS SUMMARY | 2024-06-20 15:54 | XMS_ITS | Encounter Summary ---
[place] [address] Care Team Providers Care Medical Billing Service Name Role Phone Junaid Deborah Shields APRN Primary Care Provider [phone] Reason for Visit * Auth/Cert Specialty Diagnoses / Procedures Referred By Crispin t Referred To Contact Diagnoses Aortic stenosis Procedures PRO REPLACE AORT VALV, PROSTH VALV @REPLACE AORTIC VALVE, OPEN, W\CPB, W\PROSTHETIC VALVE (WRVU 41.32) Referral ID Status Reason Start Date Expiration Date Visits Re quested Visits Authorized [id number] 1 1 Encounter Details Date Type Department Care Team (Late st Contact Info) Description 09/21/2016 7:25 AM EST Anesthesia Event [place] [address] Luis Enrique Quarles MD [facility] [place] [address] Henrik Cooper MD [facility] [place] [address] Anesthesia Record Procedure Summary Procedure Name Responsible [...] 0819 Sternotomy 0844 CV Bypass init 1009 Slash Trimmer 1014 An Clamp Remove 1031 CP Bypass [...] Tube 09/21/16 (#28 angled chest tube to [place]: left: pericardial); Left; 09/22/16; 1119 09/21/16 0000 by Toshia Alejandre RN 09/22/16 1119 by Vero Bonilla RN Chest Tube 09/21/16 (#28 straig ht chest tube to [place]; right: mediastinal'); Right; mediastinum; 09/22/16; 1118 09/21/16 0000 by Toshia Alejandre RN 09/22/16 1118 by Vero Bonilla RN (RETIRED) Peripheral IV Line - Single Lumen 09/21/16; 0648; metacarpal vein (top of hand), left; ywul-rrv-euzrtn catheter system; 20 gauge; valdo Arteaga; 09/23/16; [...] Cooper MD - 09/21/2016 6:50 PM EST [facility] [place] of Anesthesiology Post-procedure Note Patient: Purnima Thacker Procedure Summary Date Anesthesia Start Anesthesia Stop Room / Location 09/21/16 07 1152 [facility] OR 16 / [facility] MAIN OR Procedure Diagnosis Surgeon Responsible Provider @REPLACE AORTIC VALVE, OPEN, W\CPB, W\PROSTHETIC VALVE (WRVU 41.32) (N/A Chest); @AORTOPLASTY FOR SUPRAVALVULAR STENOSIS (WRVU 29.33) (N/A Chest) () Alirio Francisco MD Clark, Jeffrey A, MD All Anesthesia Providers: Anesthesiologist: Luis Enrique Quarles MD Behavior Clinician: Henrik Cooper MD Last (1hr) Vitals: BP Temp 36.1 ??C (97 ??F) (09/21/16 1800) Pulse 79 (09/21/16 1800) Resp 11 (09/21/16 1800) SpO2 98 % (09/21/16 1800) Patient Location: [facility] Level of Consciousness: Sedated (Pharmacologic/Intentional) Pain [...] Office Visit Hematology [place] [address] Markel Borjas MD [facility] [address] [place] [address] 11/02/2024 12:00 PM EDT Appointment [place] [address] 11/02/2024 1:00 PM EDT Office Visit [place] [address] Magdalena Peralta MD [facility] [address] 03/01/2025 4:15 PM EDT Office Visit Dermatology at [place] [address] [place] [address] Marek Bonilla MD [address] [place] [address] documented as of this encounter Visit Diagnoses [...] mg documented in this encounter Care Teams Medical Billing Service Relationship Specialty Start Date End Date Deborah Quiroga, TELECOMMUNICATOR PCP - General Family Medicine 03/24/16 02/04/23 documented as of this encounter
--- OUTSIDE RECORDS SUMMARY | 2024-06-20 15:54 | XMS_ITS | Encounter Summary ---
Author Organization Formerly [facility] [place] [address] Care Team Providers Care Hospice/Home Health Aide Name Role Phone Ashley Quirogazac Shields APRN Primary Care Provider [phone] Encounter Details Date Type Department Care Team (Late st Contact Info) Description 08/04/2016 External Results Hematology and Oncology at [place] [phone] Alexandrea Greenwood RN Neutropenia, unspecified type Social [...] EST Office Visit Hematology [place] [address] Markel Borjas MD [facility] [address] [place] [address] 11/02/2024 12:00 PM EDT Appointment [place] [address] 11/02/2024 1:00 PM EDT Office Visit Rheumatology at [place] [phone] Magdalena Peralta MD [facility] [place] [address] 03/01/2025 4:15 PM EDT Office Visit Dermatology at [place] [address] [place] [address] Marek Bonilla MD [address], [place] [address] documented as of this encounter Procedures Procedure [...] type documented in this encounter Care Teams Hospice/Home Health Aide Relationship Specialty Start Date End Date Deborah Quiroga APRN PCP - General Family Medicine 03/24/16 02/04/23 documented as of this encounter
--- OUTSIDE RECORDS SUMMARY | 2024-06-20 15:54 | XMS_ITS | Encounter Summary ---
[place] [address] Care Team Providers Care Electronics Maintenance Technician Name Role Phone Ashley Quirogan Cornelius ANURAG Primary Care Provider [phone]- [phone] Reason for Visit * Reason Onset Date Comments Medication Management 09/14/2016 Encounter Details Date Type Department Care Team (Late st Contact Info) Description 09/14/2016 Telephone [place]ematology [place] [phone] Alexandrea Greenwood, sales operations coordinator Management Social History Tobacco Use Types Packs/Day [...] 9:12 AM EST Message received from secretary book keeper: Purnima called, asking for clarification on when [...] EST Office Visit Hematology and Oncology at [place] [phone] Markel Borjas MD [facility] [address] [place] [address] 11/02/2024 12:00 PM EDT [place]oint[place] [address] 11/02/2024 1:00 PM EDT Office Visit Rheumatology at [place] [phone] Magdalena Peralta MD [facility] [place] [address] 03/01/2025 4:15 PM EDT Office Visit Dermatology at [address] [place] [address] Marek Bonilla MD [address], [place] [address] documented as of this encounter Visit Diagnoses Not on filedocumented in this encounter Care Teams Electronics Maintenance Technician Relationship Specialty Start Date End Date Deborah Quiroga APRN PCP - General Family Medicine 03/24/16 02/04/23 documented as of this encounter
--- OUTSIDE RECORDS SUMMARY | 2024-06-20 15:54 | XMS_ITS | Encounter Summary ---
Author Organization [facility] Address [facility] [place] [address] Care Team Providers Care Property Management Coordinator Name Role Phone Ashley Quirogazac Shields APRN Primary Care Provider [phone] Encounter Details Date Type Department Care Team (Latest Contact Info) Description 05/19/2016 11:20 AM EDT Laboratory Appointment Lab at [place] [phone] Nonrheumatic aortic valve stenosis Social History Tobacco [...] Visit Hematology and Oncology at [place] [phone] Markel Borjas MD [facility] [address] [place] [address] 11/02/2024 12:00 PM EDT Appointment Pulmonology at [place] [phone] 11/02/2024 1:00 PM EDT Office Visit Rheumatology at [place] [phone] Magdalena Peralta MD [facility] [place] [address] 03/01/2025 4:15 PM EDT Office Visit Dermatology at [place] [address] [place] [phone] Marek Bonilla MD [address], [place] [address] documented as of this encounter Procedures Procedure Name Priority Date/Time Associated Diagnosis Comments SCAN, PERIPHERAL BLOOD Routine 05/19/2016 11:32 AM EDT HEMOGRAM Routine 05/19/2016 11:32 AM EDT Nonrheumatic aortic valve stenosis DIFFERENTIAL, AUTOMATED Routine 05/19/2016 11:32 AM EDT Nonrheumatic aortic valve stenosis TYPE AND SCREEN, SDP (FUTURE SURGERY, [facility] SAME DAY PROGRAM ONLY) Routine 05/19/2016 11:32 [...] [facility] RBC Morphology Normal [facility] Blood specimen (specimen) 05/19/2016 11:32 AM EDT 05/19/2016 11:41 AM EDT Narrative Resulting Agency Comment Spec In Lab Alirio Esparza MD HEMATOLOGY ORDERABL ES [facility] [place] [address] * (ABNORMAL) Differential, Automated (05/19/2016 11:32 AM EDT) Neutrophil % 25.9 % [facility] Neutrophil Absolute 0.42(Crit ical) 1.70 - 6.10 x10(3)/mc L [facility] Comment: This result has been called to DR ALIRIO ESPARZA by Alivia Ibarra on 05 19 2016 at 1228, and has been read back. Lymph % 59.9 % [facility] Lymphocytes Abs 1.0 0.9 - 3.2 x10(3)/mc L [facility] Monocyte % 13.0 % [facility] Monocyte Abs 0.2(L) 0.3 - 0.9 x10(3)/mc L [facility] Eos % 0.6 % [facility] Eosinophils Abs 0.0 0.0 - 0.4 x10(3)/mc L [facility] Basophil % 0.6 % ST [...] City/[facility]/ZIP Co de Phone Number [facility] [place] [address] * (ABNORMAL) Hemogram (05/19/2016 11:32 AM EDT) White Blood Cell 1.6(Criti gabrielle) 4.0 - 9.5 x10(3)/mc L [facility] Comment: This result has been called to DR ALIRIO ESPARZA by Alivia Ibarra on 05 19 2016 at 1228, and has been read back. Red Blood Cell 3.96(L) 4.00 - 5.21 x10(6)/mc L [facility] Hemoglobin 12.5 11.7 - 15.5 gm/dL [facility] Hematocrit 37.9 35.7 - 45.8 % [facility] Mean Cell Volume 95.7(H) 82.6 - 94.4 fL [facility] Mean Cell Hemoglobin 31.6 27.1 - 32.0 pg [facility] Mean Cell Hemoglobin Concentration 33.0 31.7 - 35.0 gm/dL [facility] Platelet 227 145 - 357 x10(3)/mc L [facility] RDW Standard Deviation 40.5 37.0 - 46.0 fL [facility] RDW coefficient of variation 11.5 11.5 - 14.1 % [facility] Mean Platelet Volume 8.4 7.6 - 12.9 fL [facility] NRBC% auto 0.0 % [facility] NRBC Absolute 0.000 0.000 - 0.000 x10(3)/mc L [facility] Blood specimen (specimen) 05/19/2016 11:32 AM EDT 05/19/2016 11:41 AM EDT Narrative Resulting Agency Comment Spec In Lab Alirio Esparza MD HEMATOLOGY ORDERABL ES [facility] [place] [address] * Antibody screen (05/19/2016 11:32 AM EDT) Ab Screen Interp Negative [facility] Expires at [id number] on: 07/03/2016 [facility] Comment: Corrected from 06/11/16 12:00 [Unknown] on 06/09/16 05:51 by Bethanie Tomlinson I.. Corrected from 07/03/16 12:00 [Unknown] on 05/21/16 06:00 by Shelia Barrera Blood specimen (specimen) 05/19/2016 11:32 AM EDT 05/19/2016 11:35 AM EDT Narrative Resulting Agency Comment Spec In Lab Alirio Esparza MD BLOOD BANK LAB [place] Performing Organization Address City/[facility]/ZIP Co de Phone Number [facility] [place] [address] * ABO/Rh Typing (05/19/2016 11:32 AM EDT) Pathologist [facility] ABORH Type B Pos [facility] Blood specimen (specimen) 05/19/2016 11:32 AM EDT 05/19/2016 11:35 AM EDT Narrative Resulting Agency Comment Spec In Lab Alirio Esparza MD BLOOD BANK LAB [place] [facility] [place] [address] * Basic Metabolic Panel (non-fasting) (05/19/2016 11:32 AM EDT) [facility] Glucose 86 65 - 199 mg/dL [facility] [...] the following links into your internet browser. [email or web address] Blood specimen (specimen) 05/19/2016 11:32 AM EDT 05/19/2016 11:41 AM EDT Narrative Resulting Agency Comment Spec In Lab Alirio Esparza MD CHEMISTRY ORDERABLE S [facility] [place] [address] documented in this encounter Visit Diagnoses Diagnosis Nonrheumatic aortic valve stenosis Aortic valve disorders documented in this encounter Care Teams Property Management Coordinator Relationship Specialty Start Date End Date Deborah Quiroga APRN PCP - General Family Medicine 03/24/16 02/04/23 documented as of this encounter
--- OUTSIDE RECORDS SUMMARY | 2024-06-20 15:54 | XMS_ITS | Encounter Summary ---
[place] [address] Care Team Providers Care Veterinary Surgery Technologist Name Role Phone Ashley Quirogan Cornelius ANURAG Primary Care Provider [phone]- [phone] Reason for Visit * Reason Onset Date Comments Medical Care Coordination 09/14/2016 Encounter Details Date Type Department Care Team (Late st Contact Info) Description 09/14/2016 Telephone Hematology [place] [phone] Alexandrea Greenwood RN Medical Care Coordination Social [...] 09/14/2016 9:10 AM EST Message received from school attendance secretary: Injection/Infusion Referral Call placed to [facility] Infusion Room Spoke charis Bragg. Services to be provided for pt are: [facility] 09/16/16 [facility] confirmed they would provide services to pt and would contact with appointment time. Pt aware to expect the phone call ??orders faxed to [phone]). documented in this encounter Plan of Treatment Upcoming Encounters Date Type Department Care Team (Late st Contact Info) Description 06/23/2024 2:00 PM EST Office Visit Hematology [place] [address] Markel Borjas MD [facility] [address] [place] [address] 11/02/2024 12:00 PM EDT Appointment [place] [address] 11/02/2024 1:00 PM EDT Office Visit Rheumatology at [place] [address] Magdalena Peralta MD [facility] [address] 03/01/2025 4:15 PM EDT Office Visit Dermatology at [place] [address] [place] [phone] Marek Bonilla MD [address] [place] [address] documented as of this encounter Visit Diagnoses Not on filedocumented in this encounter Care Teams Veterinary Surgery Technologist Relationship Specialty Start Date End Date Deborah Quiroga APRN PCP - General Family Medicine 03/24/16 02/04/23 documented as of this encounter
--- OUTSIDE RECORDS SUMMARY | 2024-06-20 15:54 | XMS_ITS | Encounter Summary ---
Author Organization [facility] Address [facility] [place] [address] Care Team Providers Care Drum Printer Name Role Phone Junaid, Deborah Shields APRN Primary Care Provider [phone] Encounter Details Date Type Department Care Team (Late st Contact Info) Description 07/13/2016 External [place] [address] Provider, Scanning Social History Tobacco [...] EST Office Visit Hematology and Oncology at [place] [phone] Markel Borjas MD [facility] DR HEMATOLOGY [place] [address] 11/02/2024 12:00 PM EDT Appointment [place] [address] 11/02/2024 1:00 PM EDT Office Visit Rheumatology at [place] [phone] Magdalena Peralta MD [facility] [place] [address] 03/01/2025 4:15 PM EDT Office Visit Dermatology at [place] [address] [place] [phone] Marek Bonilla MD [address], [place] [address] documented as of this encounter Procedures Procedure Name Priority Date/Time Associated Diagnosis Comments SURGICAL PATHOLOGY SCAN Routine 07/13/2016 documented in this encounter Results * Scan Doc: Surgical Pathology (07/13/2016) Nitesh Pina Jr., MD MEDIA MGR SCAN EXT O RDR/RSLT documented in this encounter Visit Diagnoses Not on filedocumented in this encounter Care Teams Drum Printer Relationship Specialty Start Date End Date Deborah Quiroga APRN PCP - General Family Medicine 03/24/16 02/04/23 documented as of this encounter
--- OUTSIDE RECORDS SUMMARY | 2024-06-20 15:54 | XMS_ITS | Encounter Summary ---
Author Organization [facility] [place] [address] Care Team Providers Care Inspector Receiving Name Role Phone Ashley Quirogazac Shields APRN Primary Care Provider [phone] Reason for Referral * Consultation (Routine) - Specialty Diagnoses / Procedures Referred By Contact Referred To Contact Cardiac Rehabilitation Diagnoses S/P AVR Alirio Esparza MD [facility] DR [place] [address] Cardiac Rehab, [address] [place] [address] Referral ID Status Reason Start Date Expiration Date V isits Requested Visits Authorized [id number] Consult, Test & Treat 09/25/2016 03/24/2017 36 36 Reason for Visit * Auth/Cert Specialty Diagnoses / Procedures Referred By Contkrystle t Referred To Contact Diagnoses Aortic stenosis Procedures PRO REPLACE AORT VALV, PROSTH VALV @REPLACE AORTIC VALVE, OPEN, W\CPB, W\PROSTHETIC VALVE (WRVU 41.32) Referral ID Status Reason Start Date Expiration Date Visits Re quested Visits Authorized [id number] 1 1 Encounter Details Date Type Department Care Team (Latest Contact Info) Description 09/21/2016 6:08 AM EST - 09/25/2016 4:33 PM EST Hospital Encounter Intermediate [place] [id number] Alirio Esparza MD Aortic valve stenosis, unspecified [...] Patient Age: 61 y.o. Birthdate: 1955 Language: Chinese Race: White Ethnicity: Not nor Admit Date: 09/21/2016 Discharge Date: 09/25/2016 Attending Physician: Alirio Esparza MD Follow-up Recommendations for Providers: Please continue routine management of cardiovascular risk factors including blood pressure, lipids,glucose, etc. Please note any changes to medications. Patient to follow-up with PCP, Deborah Quiroga APRN, in 1-2 weeks. Patient to follow-up with Vulcanizer Operator, Dr. Antelmo Burrell, in two weeks. Patient to follow-up with Cardiac Surgery, Dr. Alirio Esparza, to be scheduled for before 10/19/2016, with CXR, EKG, and Echo. Inpatient Provider Contact Information: [facility] Section of Cardiac Surgery [facility] [address] FAX [phone] Discharge Diagnoses (Hospital Problems) Primary Diagnoses: Secondary [...] [facility] on 09/21/2016 via the Same Day Program. [...] Alirio Esparza and/or the Cardiac Surgery Physician Form Designer Team may be reached at . Antibiotic prophylaxis: You will need to take antibiotics prior to many invasive tests and treatments, such as dental cleaning, which should be done every 6 months. Your primary care physician or your dentist can prescribe this medication. Please refer to the card with the [place] [employer] Guidelines for more information. You have been provided with 3 copies of this card. Keep one for your self. Give one to your primary care physician and one to your dentist. Please refer to the [place] [employer] Guidelines for more information. Good [...] Dr. Alirio Jones. You may use a [place] Track or treadmill but avoid any pulling [...] should resume a low fat, low cholesterol, [place] [employer] Diet. Driving: No driving until [...] AM Markel Borjas MD [facility] [phone] Future Orders Complete By Expires Echocardiogram Transthoracic([place]) [IRZ446 Custom] 10/18/2016 (Approximate) 09/18/2017 Process Instructions: If the Echocardiogram is to be PERFORMED in a location other than [place]--STOP and order [id number], Echocardiogram South/External. Scheduling Instructions: Questions: Is a Bubble Study requested?: No Does the patient have Congenital Heart Disease?: No Does patient require sedation?: None GA rationale: Should this service be billed to the research sponsor?: EKG 12 Lead [EKG1 Custom] 10/18/2016 (Approximate) 09/25/2017 Process Instructions: Scheduling Instructions: Questions: Which location will this be performed?: [place] Is a rhythm strip needed?: No If EKG Reason is Pre-op Evaluation, indicate diagnosis for surgery.: Should this service be billed to the research sponsor?: XR Chest PA & Lateral (Generic) [[id number] Custom] 10/18/2016 (Approximate) 09/25/2017 Process Instructions: Scheduling Instructions: Questions: Where will study be performed?: [facility]- Radiology Portable exam?: No Reason for exam and clinical history: s/p AVReplacement, patch annuloplasty 1 month f/u Other pertinent information: Stat read required?: Date of injury if applicable: Requested Time: Referral to Cardiac Rehab [[id number] Custom] As directed Process Instructions: If no progress note charted, please enter Clinical details in comments. Scheduling Instructions: Questions: My question or request is: s/p AVR. Cardiac rehab at [facility] Referral to Home Health - at DISCHARGE [JAZ2440 CPT(R)] As directed Process Instructions: Scheduling Instructions: Comments: DOCUMENTATION FOR VNA SERVICES (INCLUDING THOSE PATIENTS WITH MEDICARE COVERAGE REQUIRING HOME VNA SERVICES AND/OR HOSPICE SERVICES) PATIENT'S LOCATION: Purnima Magalie Kirstie [address] [place] [phone] (home) No relevant phone numbers on file. Union Carpenter's Name: self In discussion with the attending physician, it is certified that this patient is under their care and that they, or a Nurse Practitioner, or Physician Form Designer who is working directly with them, hada [...] for services as follows: HOME HEALTH AGENCY: [facility] PHONE: [phone] FAX: [phone] RN orders: Cardiopulmonary assessment, incisional assessment, assess [...] issues please call the Cardiac SurgeryOffice at [phone] FOR MEDICARE ONLY: In discussion with the [...] 09/30/16 Signed: Crispin Aranda PA-C 09/25/2016 [facility] Section of Cardiac Surgery [facility] [address] FAX [phone] Date: 09/25/2016 CC: ANURAG Alford Caryn E, APRN [address] [place] [address] documented in this encounter Discharge Instructions * [...] Alirio Esparza and/or the Cardiac Surgery Physician Form Designer Team may be reached at . Antibiotic prophylaxis: You will need to take antibiotics prior to many invasive tests and treatments, such as dental cleaning, which should be done every 6 months. Your primary care physician or your dentist can prescribe this medication. Please refer to the card with the [place] [employer] Guidelines for more information. You have been provided with 3 copies of this card. Keep one for your self. Give one to your primary care physician and one to your dentist. Please refer to the [place] [employer] Guidelines for more information. Good [...] Dr. Alirio Jones. You may use a [place] Track or treadmill but avoid any pulling [...] should resume a low fat, low cholesterol, [place] [employer] Diet. Driving: No driving until [...] PM EST Cardiac Surgery Progress Note: ID: [id number] S/p AVR, patch aortoplasty POD#2. PMH of [...] Gas) No results found for: PHART, PO2ART, AHV6INV Assessment/Plan: TPW out this am. (+) BM. [...] Signed: Crispin Aranda PA-C 09/24/2016 Team pager: [phone]; [phone] after 5pm [facility] Section of Cardiac Surgery * Leonor Henson, CANDY WAFFLE ASSEMBLER - 09/23/2016 10:48 AM EST Cardiac Surgery Progress Note: ID: [id number] s/p AVR, patch aortoplasty POD#2. PMH of [...] Gas) No results found for: PHART, PO2ART, FGZ2XGT Assessment/Plan: s/p AVR, patch aortoplasty POD#2. PMH of Neutropenia, HLD, HTN, Depression, obesity, . Transferred from [facility] yesterday and doing well. Pathway. Will dc [...] rounds. Signed: Leonor Henson APRN [facility] Section of Cardiac Surgery Date: 09/23/2016 * Nico Palacios PA - 09/22/2016 9:56 AM EST Cardiac Surgery Progress Note: ID: [id number] s/p AVR, patch aortoplasty POD#1. PMH of [...] NT, ND, soft. Ext: Moves all extremities. Gorst, well perfused. Incisions: C/D/I Tubes/Lines/Drains: PIV, leanna, [...] on rounds. Signed: EKATERINA KIM [facility] Section of Cardiac Surgery Date: 09/22/2016 * [...] with outpatient services Lalitha Cohen SPTA Pager: [phone] Inpatient Physical Therapy Patient status, treatment interventions, and goals discussed with student. I am in agreement with all details and associated flowsheet rows as documented and was present for all aspects of the patient treatment session. Nerykatrina Jaramillo, [facility] Pager [phone] Problem: Acute Rehab Services Goal & Intervention Plan Goal: Bed Mobility Goal Stand Alone Therapy Goal Outcome: Ongoing (Interventions Implemented as Appropriate) 09/22/16 16109/25/16 09 Bed Mobility Goal Bed Mobility Goal, Time to Achieve 4 days -- Bed Mobility Goal, Activity Type scoot/bridge;supine to sit/sit to supine -- Bed Mobility Goal, [place] Level independent -- Bed Mobility Goal, Additional [...] Achieve 4 days -- Gait Training Goal, [place] Level independent -- Gait Training Goal, Distance [...] assist, home with home health Lalitha Cohen [facility] Pager: [phone] Inpatient Physical Therapy Patient status, treatment interventions, and goals discussed with student. I am in agreement with all details and associated flowsheet rows as documented and was present for all aspects of the patient treatment session. Nery Jaramillo, [facility] Pager [phone] Problem: Acute Rehab Services Goal & Intervention Plan Goal: Bed Mobility Goal Stand Alone Therapy Goal Outcome: Ongoing (Interventions Implemented as Appropriate) 09/22/16 16109/23/16 1412 Bed Mobility Goal Bed Mobility Goal, Time to Achieve 4 days -- Bed Mobility Goal, Activity Type scoot/bridge;supine to sit/sit to supine -- Bed Mobility Goal, [place] Level independent -- Bed Mobility Goal, Additional [...] Achieve 4 days -- Gait Training Goal, [place] Level independent -- Gait Training Goal, Distance [...] days -- Transfer Training Goal, Activity Type htm-eg-nsabp/yrvhq-kq-doy;ord-or-steyx/kunfp-fz-kaz -- Transfer Train Goal, [place] Level independent -- Transfer Training Goal, Additional [...] Another Service: (cardiac rehab) NICOLE HERNANDEZ, PT Pager:[phone] Inpatient Physical Therapy Problem: Acute Rehab Services Goal & Intervention Plan Goal: Bed Mobility Goal Stand Alone Therapy Goal Outcome: Ongoing (Interventions Implemented as Appropriate) 09/22/16 1611 Bed Mobility Goal Bed Mobility Goal, Time to Achieve 4 days Bed Mobility Goal, Activity Type scoot/bridge;supine to sit/sit to supine Bed Mobility Goal, [place] Level independent Bed Mobility Goal, Additional Goal able to abide sternal precautions during transfers Goal: Gait Training Goal Stand Alone Therapy Goal Outcome: Ongoing (Interventions Implemented as Appropriate) 09/22/16 1611 Gait Training Goal Gait Training Goal, Date Established 09/22/16 Gait Training Goal, Time to Achieve 4 days Gait Training Goal, [place] Level independent Gait Training Goal, Distance to Achieve ascend and descends 2 steps independently Goal: Goal Transfer Training Stand Alone Therapy Goal Outcome: Ongoing (Interventions Implemented as Appropriate) 09/22/16 1611 Goal Transfer Training Transfer Training Goal, Time to Achieve 4 days Transfer Training Goal, Activity Type jpd-uk-jwfvh/amjph-on-nbt;jid-ce-ryhqj/lkjga-yp-qmg Transfer Train Goal, [place] Level independent Transfer Training Goal, Additional Goal [...] of completing AD's at home, chooses her pbaogw-vy-uxa, Martha Thacker (home) for her [facility], 2nd choice in friend, Nitesh Leroy [place], [place] Current Coping/Education/Information Needs: patient sitting up [...] who live close by, [place], and her cemgxv-ij-agn Martha Thacker who she has chosen to be her DPOAH. Also has a friend Nitesh Leroy who lives in [place], [place], also her DPOAH choice. Behavioral Health History: none on file in [facility] Substance Use/Abuse: none on file in [facility] Other Pertinent/Service Specific Information: none Health/Prescription Coverage: Primary Insurance: [employer] Secondary Insurance: none Prescription Coverage: yes, per patient no issues Preferred Pharmacy: ?? Other: none Primary Care Provider: Deborah Quiroga, CANDY WAFFLE ASSEMBLER [phone] Patient/Caregiver Goals of Treatment: per medical team recommendations at discharge for CT surgery Potential Needs for Transition of Care: Rehab/SNF: TBD Home Health: TBD DME: no Dialysis: no Community Resources: non3 Transportation: ride home with a friend Other: none Anticipated Barriers to Discharge/Special Considerations: none anticipated at this time Plan: patient will need VNA services at discharge. The patient/in home sales representative has been provided a list of Home Health Agencies/DME vendors which servetheir preferred geographic area. A letter describing our affiliations was reviewed with them and they were educated about their right to choose where referrals are placed. Patient requests referral to: [facility] [employer]. PHONE: [phone] FAX: [phone] Expected date of discharge: Fri/Sat? CM called VNA to confirm referral, talked with VALDO Bunn/intake who stated she was familiar w/patient & would monitor her progress through curaspan. Referral routed to the Manager Technical Training for matching with agency/vendor and to provide any required information. A member of the Care Management team will continue to monitor progress, follow for continuity of care and assist with transition of care planning. Amanda Moreno RN Pager: [phone] * Op Note - Alirio Esparza MD - 09/21/2016 12:53 PM EST 09/23/2016 Purnima Thacker 1955 [id number] Preoperative Diagnosis: Symptomatic aortic stenosis Postoperative Diagnosis: Symptomatic aortic stenosis Procedure: Aortic valve replacement: Bovine Pericardial 25 mm Surgeon: Alirio Esparza M.D. Form Designer: Philip BALL Anesthesia: General endotracheal anesthesia Drains: [...] Operative Note Patient Name: Purnima Thacker : [id number] MR#: [id number] Case Date: 09/21/2016 Surgeon: Surgeon(s) and Role: * Alirio Esparza MD - Primary * Nico Palacios PA - Physician Form Designer Preoperative diagnosis: Postoperative diagnosis: Procedure(s) (LRB): @REPLACE [...] Visit Hematology and Oncology at [place] [address] Markel Borjas MD [facility] [address] HEMATOLOGY [place] [address] 11/02/2024 12:00 PM EDT Appointment Pulmonology at [place] [address] 11/02/2024 1:00 PM EDT Office Visit Rheumatology at [place] [address] Magdalena Peralta MD [facility] [place] [address] 03/01/2025 4:15 PM EDT Office Visit Dermatology at [place] [address] [place] [address] Marek Bonilla MD [address] [facility] [place] [address] Scheduled Orders Name Type Priority Associated Diagnoses [...] IMPLANTABLE DEVICES SCAN 09/26/2016 12:00 AM EST TWINE REELING MACHINE OPERATOR SCAN 09/26/2016 12:00 AM EST [...] SCAN EXT O RDR/RSLT * SCAN DOC: TWINE REELING MACHINE OPERATOR (09/26/2016 12:00 AM EST) Anatomical Region Laterality Modality Other Narrative 09/26/2016 12:00 AM EST Ordered by an unspecified provider. Scanning Provider MEDIA MGR SCAN EXT O RDR/RSLT * Potassium (09/25/2016 4:32 AM EST) Potassium 4.4 3.5 - 5.0 mmol/L [facility] [...] CHEMISTRY ORDERABLE S [facility] [place] [address] * (ABNORMAL) Differential, Automated (09/24/2016 9:56 AM EST) Neutrophil % 76.8 % [facility] Neutrophil Absolute 7.79(H) 1.70 - 6.10 x10(3)/mc L [facility] Lymph % 11.1 % [facility] Lymphocytes Abs 1.1 0.9 - 3.2 x10(3)/[facility] LABORATORY Monocyte % 8.5 % [facility] Monocyte Abs 0.9 0.3 - 0.9 x10(3)/[facility]ORAT[facility] Eos % 0.5 % [facility] Eosinophils Abs 0.0 0.0 - 0.4 x10(3)/[facility] LABORATORY Basophil % 0.2 % [facility] Baso Absolute 0.0 0.0 - 0.1 x10(3)/[facility] LABORATORY Immature Gran % 2.90 % [facility] Comment: Immature [...] [facility] Co de Phone Number [facility] [place] [address] * (ABNORMAL) Hemogram (09/24/2016 9:56 AM EST) White Blood Cell 10.1(H) 4.0 - 9.5 x10(3)/[facility] LAB[facility]AT[facility] Red Blood Cell 2.87(L) 4.00 - 5.21 x10(6)/[facility] Hemoglobin 9.4(L) 11.7 - 15.5 gm/dL [facility] Hematocrit 28.3(L) 35.7 - 45.8 % [facility] Mean Cell Volume 98.6(H) 82.6 - 94.4 fL [facility] Mean Cell Hemoglobin 32.8(H) 27.1 - 32.0 pg [facility] Mean Cell Hemoglobin Concentration 33.2 31.7 - 35.0 gm/dL [facility] Platelet 141(L) 145 - 357 x10(3)/mc L [facility] RDW Standard Deviation 45.0 37.0 - 46.0 fL [facility] RDW coefficient of variation 12.6 11.5 - 14.1 % [facility] Mean Platelet Volume 9.4 7.6 - 12.9 fL [facility] NRBC% auto 1.1 % [facility] NRBC Absolute 0.110(H) 0.000 - 0.000 x10(3)/mc L [facility] Blood specimen (specimen) 09/24/2016 9:56 AM EST 09/24/2016 10:04 AM EST Narrative Resulting Agency Comment Spec In Lab Alirio Esparza MD HEMATOLOGY ORDERABL ES [facility] [place] [address] * (ABNORMAL) Basic Metabolic Panel (non-fasting) (09/24/2016 9:56 AM EST) Glucose 111 65 - 199 mg/dL [facility] Comment:Diabetes: >=200 mg/d L plus symptoms Blood Urea Nitrogen 23(H) 8 - 18 mg/dL [facility] Comment:result rechecked-ART Creatinine 0.89 0.70 - 1.20 mg/dL [facility] Comment: Please note that the pediatric reference intervals supplied above were not validated at [facility]. Results from pediatric patients should be interpreted in conjunction to the patient's age, height and muscle mass. Sodium 138 135 - 145 mmol/L [facility] Potassium 4.2 3.5 - 5.0 mmol/L [facility] Comment: Please note: ??Patients with WBC >100,000 may have falsely elevated Potassium levels. ??For accurate Potassium quantification in these patients send serum separator tube (gold top) for subsequent determinations. ??Contact the Clinical Chemistry Laboratory if there are any questions. Chloride 98 98 - 107 mmol/L [facility] Carbon Dioxide 26 22 - 31 mmol/L [facility] Anion Gap 14 5 - 15 mmol/L [facility] Calcium 9.1 8.5 - 10.5 mg/dL [facility] [...] the following links into your internet browser. [email or web address] Blood specimen (specimen) 09/24/2016 9:56 AM EST 09/24/2016 10:04 AM EST Narrative Resulting Agency Comment Spec In Lab Alirio Esparza MD CHEMISTRY ORDERABLE S [facility] [place] [address] * XR Chest PA & Lateral (Generic) [...] EST) Potassium 4.5 3.5 - 5.0 mmol/L [facility] [...] CHEMISTRY ORDERABLE S [facility] [place] [address] * POCT Glucose (09/22/2016 8:17 AM EST) Glucose, POC 131 65 - 199 mg/dL [facility] Comment: Supplemental ranges: <140 mg/dL before meals <180 mg/dL all other times of the day Blood specimen (specimen) 09/22/2016 8:17 AM EST 09/22/2016 8:17 AM EST Alirio Esparza MD POINT OF CARE TEST ORDERABLES Performing Organization Address [facility] de Phone Number [facility] [place] [address] * POCT Glucose (09/22/2016 4:01 AM EST) Glucose, POC 135 65 - 199 mg/dL [facility] Comment: Supplemental ranges: <140 mg/dL before meals <180 mg/dL all other times of the day Blood specimen (specimen) 09/22/2016 4:01 AM EST 09/22/2016 4:01 AM EST Alirio Esparza MD POINT OF CARE TEST ORDERABLES Performing Organization Address [facility] de Phone Number [facility] [place] [address] * Scan, Peripheral Blood (09/22/2016 4:00 AM EST) Pathologist [facility] Plat estimate Normal [facility] RBC Morphology Abnormal [facility] Macrocyte 1-5 /HPF [facility] Plat, Giant Less than 1 /HPF [facility] Blood specimen (specimen) 09/22/2016 4:00 AM EST 09/22/2016 4:34 AM EST Narrative Resulting Agency Comment Spec In Lab Alirio Esparza MD HEMATOLOGY ORDERABL ES Performing Organization Address [facility] Co de Phone Number [facility] [place] [address] * Electrolytes panel (09/22/2016 4:00 AM EST) Pathologist [facility] Sodium 145 135 - 145 mmol/L [facility] Potassium 4.4 3.5 - 5.0 mmol/L [facility] Comment: Please note: ??Patients with WBC >100,000 may have falsely elevated Potassium levels. ??For accurate Potassium quantification in these patients send serum separator tube (gold top) for subsequent determinations. ??Contact the Clinical Chemistry Laboratory if there are any questions. Chloride 107 98 - 107 mmol/L [facility] Carbon Dioxide 24 22 - 31 mmol/L [facility] Anion Gap 14 5 - 15 mmol/L [facility] Blood specimen (specimen) Venous Draw / Unknown 09/22/2016 4:00 AM EST 09/22/2016 4:34 AM EST Narrative Resulting Agency Comment Spec In Lab Alirio Esparza MD CHEMISTRY ORDERABLE S [facility] [place] [address] * (ABNORMAL) Differential, Automated (09/22/2016 4:00 AM EST) Neutrophil % 70.9 % [facility] Neutrophil Absolute 5.33 1.70 - 6.10 x10(3)/mc L [facility] Lymph % 9.1 % [facility] Lymphocytes Abs 0.7(L) 0.9 - 3.2 x10(3)/mc L [facility] Monocyte % 18.0 % [facility] Monocyte Abs 1.4(H) 0.3 - 0.9 x10(3)/mc L [facility] Eos % 0.0 % [facility] Eosinophils Abs 0.0 0.0 - 0.4 x10(3)/mc L [facility] Basophil % 0.1 % [facility] Baso Absolute 0.0 0.0 - 0.1 x10(3)/mc L [facility] Immature Gran % 1.90 % [facility] Comment: Immature granulocytes(IG's)percentage and absolute count will include metamyelocytes, myelocytes, and promyelocytes. Blood smears from CBCs yielding IG's will be scanned manually for concordance. If this scan disagrees with the automated IG or if promyelocytes are noted, a manual differential will be performed. Immature Gran Absolute 0.14(H) 0.00 - 0.04 x10(3)/ L [facility] Blood specimen (specimen) 09/22/2016 4:00 AM EST 09/22/2016 4:34 AM EST Narrative Resulting Agency Comment Spec In Lab Alirio Esparza MD HEMATOLOGY ORDERABL ES [facility] [place] [address] * (ABNORMAL) Hemogram (09/22/2016 4:00 AM EST) White Blood Cell 7.5 4.0 - 9.5 x10(3)/[facility] LABORATORY Red Blood Cell 2.93(L) 4.00 - 5.21 x10(6)/[facility] LABORATORY Hemoglobin 9.2(L) 11.7 - 15.5 gm/dL [facility] Hematocrit 28.0(L) 35.7 - 45.8 % [facility] Mean Cell Volume 95.6(H) 82.6 - 94.4 fL [facility] Mean Cell Hemoglobin 31.4 27.1 - 32.0 pg [facility] Mean Cell Hemoglobin Concentration 32.9 31.7 - 35.0 gm/dL [facility] Platelet 161 145 - 357 x10(3)/[facility] LABORATORY RDW Standard Deviation 44.0 37.0 - 46.0 [facility] LABORATORY RDW coefficient of variation 12.6 11.5 - 14.1 % [facility] Mean Platelet Volume 9.3 7.6 - 12.9 [facility] LABORATORY NRBC% auto 0.3 % [facility] NRBC Absolute 0.020(H) 0.000 - 0.000 x10(3)/ L [facility] Blood specimen (specimen) 09/22/2016 4:00 AM EST 09/22/2016 4:34 AM EST Narrative Resulting Agency Comment Spec In Lab Alirio Esparza MD HEMATOLOGY ORDERABL ES Performing Organization Address [facility] de Phone Number [facility] [place] [address] * (ABNORMAL) Cardiac Enzymes (09/22/2016 4:00 AM EST) Troponin-T 0.13(H) <=0.03 ng/mL [facility] Comment: 0.03 ng/mL: Represents the [...] consensus document of the Joint Society of Cardiology/[place] [employer] Committee for the redefinition of myocardial infarction. ??Journal of the [place] College [employer]iology 2000; 36: 959-969] Creatine Kinase 338(H) 0 - 160 unit/L [facility] Blood specimen (specimen) 09/22/2016 4:00 AM EST 09/22/2016 4:34 AM EST Narrative Resulting Agency Comment Spec In Lab Alirio Esparza MD CHEMISTRY ORDERABLE S Performing Organization Address [facility] Co de Phone Number [facility] [place] [address] * (ABNORMAL) Glucose, fasting (09/22/2016 4:00 AM EST) Glucose Fasting 137(H) 65 - 99 mg/dL [facility] Comment: ?Fasting* Glucose Interpretive Criteria [...] of Diabetes Mellitus, Position Statement from the [place] [employer] Association. ??Diabetes Care, Volume 33, Supplement 1, Aug 2009 Blood specimen (specimen) 09/22/2016 4:00 AM EST 09/22/2016 4:34 AM EST Narrative Resulting Agency Comment Spec In Lab Alirio Esparza MD CHEMISTRY ORDERABLE S [facility] [place] [address] * (ABNORMAL) Creatinine (09/22/2016 4:00 AM EST) Creatinine 0.69(L) 0.70 - 1.20 mg/dL [facility] Comment: Please note that the pediatric reference intervals supplied above were not validated at [facility]. Results from pediatric patients should be interpreted in conjunction to the patient's age, height and muscle mass. Est Glomerular Filtration Rate >60 >=60 ST [...] the following links into your internet browser. [email or web address] Blood specimen (specimen) 09/22/2016 4:00 AM EST 09/22/2016 4:34 AM EST Narrative Resulting Agency Comment Spec In Lab Alirio Esparza MD CHEMISTRY ORDERABLE S Performing Organization Address [facility] Co de Phone Number [facility] [place] [address] * BUN (09/22/2016 4:00 AM EST) Blood Urea Nitrogen 10 8 - 18 mg/dL [facility] Blood specimen (specimen) 09/22/2016 4:00 AM EST 09/22/2016 4:34 AM EST Narrative Resulting Agency Comment Spec In Lab Alirio Esparza MD CHEMISTRY ORDERABLE S Performing Organization Address [facility] Phone Number [facility] [place] [address] * POCT Glucose (09/21/2016 9:59 PM EST) Glucose, POC 146 65 - 199 mg/dL [facility] Comment: Supplemental ranges: <140 mg/dL before meals <180 mg/dL all other times of the day Blood specimen (specimen) 09/21/2016 9:59 PM EST 09/21/2016 9:59 PM EST Alirio Esparza MD POINT OF CARE TEST ORDERABLES Performing Organization Address [facility] Co de Phone Number [facility] [place] [address] * POCT Glucose (09/21/2016 7:26 PM EST) Glucose, POC 152 65 - 199 mg/dL [facility] Comment: Supplemental ranges: <140 mg/dL before meals <180 mg/dL all other times of the day Blood specimen (specimen) 09/21/2016 7:26 PM EST 09/21/2016 7:26 PM EST Alirio Esparza MD POINT OF CARE TEST ORDERABLES Performing Organization Address [facility] Co de Phone Number [facility] [place] [address] * POCT Glucose (09/21/2016 6:00 PM EST) Glucose, POC 146 65 - 199 mg/dL [facility] Comment: Supplemental ranges: <140 mg/dL before meals <180 mg/dL all other times of the day Blood specimen (specimen) 09/21/2016 6:00 PM EST 09/21/2016 6:00 PM EST Alirio Esparza MD POINT OF CARE TEST ORDERABLES [facility] [place] [address] * (ABNORMAL) BLOOD GAS 2 ARTERIAL (09/21/2016 4:42 PM EST) [facility] pH, Arterial 7.35(L) 7.35 - 7.45 [facility] PCO2, Arterial 48(H) 35 - 45 mmHg [facility] PO2, Arterial 108(H) 85 - 104 mmHg [facility] Bicarbonate, Arterial 26.0 20.0 - 26.0 mmol/L [facility] Base Excess, Arterial 0.5 -3.0 - 3.0 mmol/L [facility] Hgb Blood Gas 10.4(L) 11.7 - 15.5 gm/dL [facility] Oxyhemoglobin, Arterial 96.2 94.0 - 97.0 % [facility] Carboxyhemoglob in, Arterial 0.0 % [facility] Comment: Nonsmokers: 0.5-1.5% COHB Smokers: Variable, but usually less than 10% Toxic: 20-30% COHB Lethal: Greater than 60% COHB Methemoglobin, Arterial 0.7 <=1.5 % [facility] Na Whole Blood 139 135 - 145 mmol/L [facility] K Whole Blood 4.2 3.5 - 5.0 mmol/L [facility] Comment: Please note: Patients with WBC >100,000 may have falsely elevated Potassium levels. Contact the Clinical Chemistry Laboratory if there are any questions. ICa Whole Blood 1.13(L) 1.15 - 1.33 mmol/L [facility] Comment: Note: ??Total bilirubin higher than 20 mg/dL may lead to falsely low ionized calcium. CL Whole Blood 106 98 - 107 mmol/L [facility] Gluc Whole Bld 147 65 - 199 mg/dL [facility] Comment:Diabetes: >=200 mg/d L plus symptoms. Lactate WB 1.2 0.5 - 2.2 mmol/L [facility] FIO2 Art 40 % [facility] PF Ratio Art 270 [facility] Blood specimen (specimen) 09/21/2016 4:42 PM EST 09/21/2016 4:42 PM EST Alirio Esparza MD POINT OF CARE TEST ORDERABLES Performing Organization Address City/[facility]/ZIP Co de Phone Number [facility] [place] [address] * POCT Glucose (09/21/2016 4:07 PM EST) Glucose, POC 150 65 - 199 mg/dL [facility] Comment: Supplemental ranges: <140 mg/dL before meals <180 mg/dL all other times of the day Blood specimen (specimen) 09/21/2016 4:07 PM EST 09/21/2016 4:07 PM EST Alirio Esparza MD POINT OF CARE TEST ORDERABLES Performing Organization Address City/[facility]/ZIP Co de Phone Number [facility] [place] [address] * (ABNORMAL) Hemoglobin (09/21/2016 4:05 PM EST) Hemoglobin 9.9(L) 11.7 - 15.5 gm/dL [facility] Blood specimen (specimen) 09/21/2016 4:05 PM EST 09/21/2016 4:20 PM EST Narrative Resulting Agency Comment Spec In Lab Alirio Esparza MD HEMATOLOGY ORDERABL ES Performing Organization Address [facility] de Phone Number [facility] [place] [address] * Potassium (09/21/2016 4:05 PM EST) Potassium 4.6 3.5 - 5.0 mmol/L [facility] MD CHEMISTRY ORDERABLE S Performing Organization Address [facility] de Phone Number [facility] [place] [address] * POCT Glucose (09/21/2016 2:52 PM EST) Glucose, POC 117 65 - 199 mg/dL [facility] Comment: Supplemental ranges: <140 mg/dL before meals <180 mg/dL all other times of the day Blood specimen (specimen) 09/21/2016 2:52 PM EST 09/21/2016 2:52 PM EST Alirio Esparza MD POINT OF CARE TEST ORDERABLES Performing Organization Address [facility] Co de Phone Number [facility] [place] [address] * POCT Glucose (09/21/2016 1:51 PM EST) Glucose, POC 108 65 - 199 mg/dL [facility] Comment: Supplemental ranges: <140 mg/dL before meals <180 mg/dL all other times of the day Blood specimen (specimen) 09/21/2016 1:51 PM EST 09/21/2016 1:51 PM EST Alirio Esparza MD POINT OF CARE TEST ORDERABLES Performing Organization Address City/[facility]/ZIP Co de Phone Number [facility] [place] [address] * POCT Glucose (09/21/2016 12:54 PM EST) Glucose, POC 128 65 - 199 mg/dL [facility] Comment: Supplemental ranges: <140 mg/dL before meals <180 mg/dL all other times of the day Blood specimen (specimen) 09/21/2016 12:54 PM EST 09/21/2016 12:54 PM EST Alirio Esparza MD POINT OF CARE TEST ORDERABLES Performing Organization Address [facility] Co de Phone Number [facility] [place] [address] * EKG 12 Lead (09/21/2016 12:26 PM EST) Ventricular rate 87 BPM MUSE SYSTEM Atrial Rate 87 BPM MUSE SYSTEM P-R Interval 256 ms MUSE SYSTEM QRS Duration 90 ms MUSE SYSTEM Q-T Interval 406 ms MUSE SYSTEM QTC Calculated (Bezet) 488 ms MUSE SYSTEM Calculated P [place] 24 degrees MUSE SYSTEM Calculated R [place] 21 degrees MUSE SYSTEM Calculated T [place] -5 degrees MUSE SYSTEM INTERPRETATION Sinus rhythm [...] Esparza MD ECG ORDERABLES Performing Organization Address City/[facility] Co de Phone [...] course of the esophagus and below the [id number]. There is a right IJ PA catheter [...] the course of theesophagus and below the [id number]. There is a right IJ PA catheter [...] EST) pH, Arterial 7.41 7.35 - 7.45 [facility] PCO2, Arterial 42 35 - 45 mmHg [facility] PO2, Arterial 356(H) 85 - 104 mmHg [facility] Bicarbonate, Arterial 26.2(H) 20.0 - 26.0 mmol/L [facility] Base Excess, Arterial 1.6 -3.0 - 3.0 mmol/L [facility] Hgb Blood Gas 10.7(L) 11.7 - 15.5 gm/dL [facility] Oxyhemoglobin, Arterial 98.1(H) 94.0 - 97.0 % [facility] Carboxyhemoglob in, Arterial 0.3 % [facility] Comment: Nonsmokers: 0.5-1.5% COHB Smokers: Variable, but usually less than 10% Toxic: 20-30% COHB Lethal: Greater than 60% COHB Methemoglobin, Arterial 0.8 <=1.5 % [facility] Na Whole Blood 140 135 - 145 mmol/L [facility] K Whole Blood 3.8 3.5 - 5.0 mmol/L [facility] Comment: Please note: Patients with WBC >100,000 may have falsely elevated Potassium levels. Contact the Clinical Chemistry Laboratory if there are any questions. ICa Whole Blood 1.15(L) 1.15 - 1.33 mmol/L [facility] Comment: Note: ??Total bilirubin higher than 20 mg/dL may lead to falsely low ionized calcium. CL Whole Blood 106 98 - 107 mmol/L [facility] Gluc Whole Bld 135 65 - 199 mg/dL [facility] Comment:Diabetes: >=200 mg/d L plus symptoms. Lactate WB 2.2 0.5 - 2.2 mmol/L [facility] FIO2 Art 100 % [facility] PF Ratio Art 356 [facility] Blood specimen (specimen) 09/21/2016 12:20 PM EST 09/21/2016 12:20 PM EST Alirio Esparza MD POINT OF CARE TEST ORDERABLES [facility] [place] [address] * (ABNORMAL) BLOOD GAS 2 ARTERIAL (09/21/2016 10:54 AM EST) pH, Arterial 7.43 7.35 - 7.45 [facility] PCO2, Arterial 40 35 - 45 mmHg [facility] PO2, Arterial 297(H) 85 - 104 mmHg [facility] Bicarbonate, Arterial 26.0 20.0 - 26.0 mmol/L [facility] Base Excess, Arterial 1.6 -3.0 - 3.0 mmol/L [facility] Hgb Blood Gas 8.6(L) 11.7 - 15.5 gm/dL [facility] Oxyhemoglobin, Arterial 98.6(H) 94.0 - 97.0 % [facility] Carboxyhemoglob in, Arterial 0.5 % [facility] Comment: Nonsmokers: 0.5-1.5% COHB Smokers: Variable, but usually less than 10% Toxic: 20-30% COHB Lethal: Greater than 60% COHB Methemoglobin, Arterial 0.3 <=1.5 % [facility] Na Whole Blood 134(L) 135 - 145 mmol/L [facility] K Whole Blood 4.5 3.5 - 5.0 mmol/L [facility] Comment: Please note: Patients with WBC >100,000 may have falsely elevated Potassium levels. Contact the Clinical Chemistry Laboratory if there are any questions. ICa Whole Blood 1.16 1.15 - 1.33 mmol/L [facility] Comment: Note: ??Total bilirubin higher than 20 mg/dL may lead to falsely low ionized calcium. CL Whole Blood 104 98 - 107 mmol/L [facility] Gluc Whole Bld 240(H) 65 - 199 mg/dL [facility] Comment:Diabetes: >=200 mg/d L plus symptoms. Lactate WB 2.4(H) 0.5 - 2.2 mmol/L [facility] FIO2 Art 95 % [facility] Flow Art 0.7 LPM [facility] PF Ratio Art 313 [facility] Temp Art 36.7 Celsius [facility] Blood specimen (specimen) 09/21/2016 10:54 AM EST 09/21/2016 10:54 AM EST Alirio Esparza MD POINT OF CARE TEST ORDERABLES Performing Organization Address [facility]/ZIP Co de Phone Number [facility] [place] [address] * Thrombin time (09/21/2016 10:50 AM EST) Thrombin Time 19 15 - 20 sec [facility] Comment: A prolongation in the [...] MD HEMATOLOGY ORDERABLE S Performing Organization Address [facility] Co de Phone Number [facility] [place] [address] * Fibrinogen (09/21/2016 10:50 AM EST) Fibrinogen 228 180 - 510 mg/dL [facility] Comment: Called by: JONNATHAN, Read back by: MICHELLE ALEJANDRE_, Date/Time:09/21/16 11:11. A fibrinogen level >100 mg/dL is adequate for hemostasis in most patients without underlying bleeding disorders. Blood specimen (specimen) 09/21/2016 10:50 AM EST 09/21/2016 10:56 AM EST Narrative Resulting Agency Comment Spec In Lab Luis Enrique Quarles MD HEMATOLOGY ORDERABLE S Performing Organization Address [facility]/ZIP Co de Phone Number [facility] [place] [address] * APTT (09/21/2016 10:50 AM EST) Partial Thromboplastin Time 32 25 - 35 sec [facility] Comment: The recommended therapeutic range [...] [facility]/ZIP Co de Phone Number [facility] [place] [address] * (ABNORMAL) Prothrombin Time (09/21/2016 10:50 AM EST) Prothrombin Time 18.7(H) 12.0 - 15.0 sec [facility] Comment: An INR [...] International Normalization Ratio 1.5(H) 0.9 - 1.1 [facility] Blood specimen (specimen) 09/21/2016 10:50 AM EST 09/21/2016 10:56 AM EST Narrative Resulting Agency Comment Spec In Lab Luis Enrique Quarles MD HEMATOLOGY ORDERABLE S [facility] [place] [address] * (ABNORMAL) Hemogram (09/21/2016 10:50 AM EST) White Blood Cell 14.7(H) 4.0 - 9.5 x10(3)/mc L [facility] Red Blood Cell 2.40(L) 4.00 - 5.21 x10(6)/mc L [facility] Hemoglobin 7.9(L) 11.7 - 15.5 gm/dL [facility] Hematocrit 23.2(L) 35.7 - 45.8 % [facility] Comment: This result has been called to MICHELLE GRIGSBY by ASHU MORENO on 09 21 2016 at 1102, and has been read back. Mean Cell Volume 96.7(H) 82.6 - 94.4 fL [facility] Mean Cell Hemoglobin 32.9(H) 27.1 - 32.0 pg [facility] Mean Cell Hemoglobin Concentration 34.1 31.7 - 35.0 gm/dL [facility] Platelet 117(L) 145 - 357 x10(3)/mc L [facility] RDW Standard Deviation 42.6 37.0 - 46.0 fL [facility] RDW coefficient of variation 12.1 11.5 - 14.1 % [facility] Mean Platelet Volume 9.2 7.6 - 12.9 fL [facility] NRBC% auto 0.1 % [facility] NRBC Absolute 0.020(H) 0.000 - 0.000 x10(3)/mc L [facility] Blood specimen (specimen) 09/21/2016 10:50 AM EST 09/21/2016 10:56 AM EST Narrative Resulting Agency Comment Spec In Lab Luis Enrique Quarles MD HEMATOLOGY ORDERABLE S [facility] [place] [address] * Prepare Platelets, Apheresis (09/21/2016 10:30 AM EST) Dispensed? Yes [facility] Blood specimen (specimen) 09/21/2016 10:30 AM EST 09/21/2016 10:28 AM EST Alirio Esparza MD BLOOD BANK PRODUCT ORDERABLES [facility] [place] [address] * (ABNORMAL) BLOOD GAS 2 ARTERIAL (09/21/2016 10:05 AM EST) pH, Arterial 7.33(L) 7.35 - 7.45 [facility] PCO2, Arterial 54(Critic al) 35 - 45 mmHg [facility] Comment:Noted by musical instrument maker or repairer. PO2, Arterial 218(H) 85 - 104 mmHg [facility] Bicarbonate, Arterial 27.9(H) 20.0 - 26.0 mmol/L [facility] Base Excess, Arterial 2.0 -3.0 - 3.0 mmol/L [facility] Hgb Blood Gas 8.6(L) 11.7 - 15.5 gm/dL [facility] Oxyhemoglobin, Arterial 98.4(H) 94.0 - 97.0 % [facility] Carboxyhemoglo bin, Arterial 0.5 % [facility] Comment: Nonsmokers: 0.5-1.5% COHB Smokers: Variable, but usually less than 10% Toxic: 20-30% COHB Lethal: Greater than 60% COHB Methemoglobin, Arterial 0.3 <=1.5 % [facility] Na Whole Blood 129(L) 135 - 145 mmol/L [facility] K Whole Blood 6.2(Criti gabrielle) 3.5 - 5.0 mmol/L [facility] Comment: Noted by musical instrument maker or repairer. Please note: Patients with WBC >100,000 may have falsely elevated Potassium levels. Contact the Clinical Chemistry Laboratory if there are any questions. ICa Whole Blood 0.95(L) 1.15 - 1.33 mmol/L [facility] Comment: Note: ??Total bilirubin higher than 20 mg/dL may lead to falsely low ionized calcium. CL Whole Blood 100 98 - 107 mmol/L [facility] Gluc Whole Bld 289(H) 65 - 199 mg/dL [facility] Comment:Diabetes: >=200 mg/d L plus symptoms. Lactate WB 2.2 0.5 - 2.2 mmol/L [facility] Temp Art 37.0 Celsius [facility] Blood specimen (specimen) 09/21/2016 10:05 AM EST 09/21/2016 10:05 AM EST Alirio Esparza MD POINT OF CARE TEST ORDERABLES [facility] [place] [address] * (ABNORMAL) BLOOD GAS 2 ARTERIAL (09/21/2016 9:44 AM EST) pH, Arterial 7.22(Criti gabrielle) 7.35 - 7.45 [facility] Comment:Noted by musical instrument maker or repairer. PCO2, Arterial 70(Critica l) 35 - 45 mmHg [facility] Comment:Noted by musical instrument maker or repairer. PO2, Arterial 224(H) 85 - 104 mmHg [facility] Bicarbonate, Arterial 27.8(H) 20.0 - 26.0 mmol/L [facility] Base Excess, Arterial 0.0 -3.0 - 3.0 mmol/L [facility] Hgb Blood Gas 8.7(L) 11.7 - 15.5 gm/dL [facility] Oxyhemoglobin, Arterial 98.5(H) 94.0 - 97.0 % [facility] Carboxyhemoglob in, Arterial 0.6 % [facility] Comment: Nonsmokers: 0.5-1.5% COHB Smokers: Variable, but usually less than 10% Toxic: 20-30% COHB Lethal: Greater than 60% COHB Methemoglobin, Arterial 0.3 <=1.5 % [facility] Na Whole Blood 131(L) 135 - 145 mmol/L [facility] K Whole Blood 5.9(H) 3.5 - 5.0 mmol/L [facility] Comment: Please note: Patients with WBC >100,000 may have falsely elevated Potassium levels. Contact the Clinical Chemistry Laboratory if there are any questions. ICa Whole Blood 1.00(L) 1.15 - 1.33 mmol/L [facility] Comment: Note: ??Total bilirubin higher than 20 mg/dL may lead to falsely low ionized calcium. CL Whole Blood 101 98 - 107 mmol/L [facility] Gluc Whole Bld 227(H) 65 - 199 mg/dL [facility] Comment:Diabetes: >=200 mg/d L plus symptoms. Lactate WB 2.1 0.5 - 2.2 mmol/L [facility] Blood specimen (specimen) 09/21/2016 9:44 AM EST 09/21/2016 9:44 AM EST Alirio Esparza MD POINT OF CARE TEST ORDERABLES Performing Organization Address [facility] Co de Phone Number [facility] [place] [address] * (ABNORMAL) Hemoglobin (09/21/2016 9:42 AM EST) Hemoglobin 7.2(L) 11.7 - 15.5 gm/dL [facility] Blood specimen (specimen) 09/21/2016 9:42 AM EST 09/21/2016 9:51 AM EST Narrative Resulting Agency Comment Spec In Lab Alirio Esparza MD HEMATOLOGY ORDERABL ES Performing Organization Address [facility] Co de Phone Number [facility] [place] [address] * Platelet count (09/21/2016 9:42 AM EST) Platelet 159 145 - 357 x10(3)/mc L [facility] Immature Plt % 1.6 0.0 - 7.4 % [facility] Comment: Limitation of the Immature Platelet Fraction (IPF)-May be less reliable when the platelet count is less than 08o315/uL due to statistical imprecision. The IPF value [...] in a decreased state of production. References: [employer] The Clinical Value of the Immature Platelet Fraction (IPF) in Cell Recovery Document Number [id number] 12/2010 [employer] The Role of the Immature Platelet Fraction (IPF) in the Differential Diagnosis of Thrombocytopenia, Document [id number] V05 P012/13 Blood specimen (specimen) 09/21/2016 9:42 AM EST 09/21/2016 9:51 AM EST Narrative Resulting Agency Comment Spec In Lab Alirio Esparza MD HEMATOLOGY ORDERABL ES [facility] [place] [address] * (ABNORMAL) Hematocrit (09/21/2016 9:42 AM EST) [facility] Hematocrit 21.6(L) 35.7 - 45.8 % [facility] Comment: This result has been called to MICHELLE ALEJANDRE by Serjio Frazier on 09 21 2016 at 0957, and has been read back. Blood specimen (specimen) 09/21/2016 9:42 AM EST 09/21/2016 9:51 AM EST Narrative Resulting Agency Comment Spec In Lab Alirio Esparza MD HEMATOLOGY ORDERABL ES [facility] [place] [address] * Fibrinogen (09/21/2016 9:42 AM EST) [facility] Fibrinogen 219 180 - 510 mg/dL [facility] Comment: Called by: JONNATHAN, Read back by: MICHELLE ALEJANDRE_, Date/Time:09/21/16 10:03_. A fibrinogen level >100 mg/dL is adequate for hemostasis in most patients without underlying bleeding disorders. Blood specimen (specimen) 09/21/2016 9:42 AM EST 09/21/2016 9:51 AM EST Narrative Resulting Agency Comment Spec In Lab Alirio Esparza MD HEMATOLOGY ORDERABL ES [facility] [place] [address] * (ABNORMAL) BLOOD GAS 2 ARTERIAL (09/21/2016 9:10 AM EST) pH, Arterial 7.36 7.35 - 7.45 [facility] PCO2, Arterial 48(H) 35 - 45 mmHg [facility] PO2, Arterial 295(H) 85 - 104 mmHg [facility] Bicarbonate, Arterial 26.0 20.0 - 26.0 mmol/L [facility] Base Excess, Arterial 0.5 -3.0 - 3.0 mmol/L [facility] Hgb Blood Gas 8.0(L) 11.7 - 15.5 gm/dL [facility] Oxyhemoglobin, Arterial 98.3(H) 94.0 - 97.0 % [facility] Carboxyhemoglob in, Arterial 1.0 % [facility] Comment: Nonsmokers: 0.5-1.5% COHB Smokers: Variable, but usually less than 10% Toxic: 20-30% COHB Lethal: Greater than 60% COHB Methemoglobin, Arterial 0.3 <=1.5 % [facility] Na Whole Blood 135 135 - 145 mmol/L [facility] K Whole Blood 5.4(H) 3.5 - 5.0 mmol/L [facility] Comment: Please note: Patients with WBC >100,000 may have falsely elevated Potassium levels. Contact the Clinical Chemistry Laboratory if there are any questions. ICa Whole Blood 0.93(L) 1.15 - 1.33 mmol/L [facility] Comment: Note: ??Total bilirubin higher than 20 mg/dL may lead to falsely low ionized calcium. CL Whole Blood 102 98 - 107 mmol/L [facility] Gluc Whole Bld 195 65 - 199 mg/dL [facility] Comment:Diabetes: >=200 mg/d L plus symptoms. Lactate WB 1.8 0.5 - 2.2 mmol/L [facility] Temp Art 37.0 Celsius [facility] Blood specimen (specimen) 09/21/2016 9:10 AM EST 09/21/2016 9:10 AM EST Alirio Esparza MD POINT OF CARE TEST ORDERABLES [facility] [place] [address] * Surgical Pathology Report (09/21/2016 9:09 AM EST) Final Diagnosis [id number] ?Location: The signing pathologist has (i) examined [...] ?. (R1) ??ADELITA 09/24/2016 9:32 AM EST [facility] AORTIC STRUCTURE / Unknown 09/21/2016 9:09 AM EST 09/21/2016 9:09 AM EST Alirio Esparza MD PATHOLOGY/CYTOLOGY ORDERABLES Performing Organization Address City/[facility]/[place] [address] * Specimen to Pathology (surgical or derm) (09/21/2016 9:09 AM EST) AP Specimen 09/21/2016 9:09 AM EST 09/21/2016 9:09 AM EST Narrative [facility] - 09/21/2016 9:09 AM EST Specimen requisition ordered. ??Separate Pathology report to follow Alirio Esparza MD PATHOLOGY/CYTOLOGY ORDERABLES Performing Organization Address City/[facility]/[place] [address] * (ABNORMAL) BLOOD GAS 2 ARTERIAL (09/21/2016 8:50 AM EST) pH, Arterial 7.41 7.35 - 7.45 [facility] PCO2, Arterial 33(L) 35 - 45 mmHg [facility] PO2, Arterial 348(H) 85 - 104 mmHg [facility] Bicarbonate, Arterial 20.6 20.0 - 26.0 mmol/L [facility] Base Excess, Arterial -4.1(L) -3.0 - 3.0 mmol/L [facility] Hgb Blood Gas 9.5(L) 11.7 - 15.5 gm/dL [facility] Oxyhemoglobin, Arterial 98.8(H) 94.0 - 97.0 % [facility] Carboxyhemoglob in, Arterial 0.3 % [facility] Comment: Nonsmokers: 0.5-1.5% COHB Smokers: Variable, but usually less than 10% Toxic: 20-30% COHB Lethal: Greater than 60% COHB Methemoglobin, Arterial 0.3 <=1.5 % [facility] Na Whole Blood 137 135 - 145 mmol/L [facility] K Whole Blood 4.0 3.5 - 5.0 mmol/L [facility] Comment: Please note: Patients with WBC >100,000 may have falsely elevated Potassium levels. Contact the Clinical Chemistry Laboratory if there are any questions. ICa Whole Blood 1.04(L) 1.15 - 1.33 mmol/L [facility] Comment: Note: ??Total bilirubin higher than 20 mg/dL may lead to falsely low ionized calcium. CL Whole Blood 105 98 - 107 mmol/L [facility] Gluc Whole Bld 93 65 - 199 mg/dL [facility] Comment:Diabetes: >=200 mg/d L plus symptoms. Lactate WB 1.0 0.5 - 2.2 mmol/L [facility] Blood specimen (specimen) 09/21/2016 8:50 AM EST 09/21/2016 8:50 AM EST Alirio Esparza MD POINT OF CARE TEST ORDERABLES Performing Organization Address City/State/[facility] Co de Phone Number [facility] [place] [address] * (ABNORMAL) BLOOD GAS 2 ARTERIAL (09/21/2016 8:18 AM EST) pH, Arterial 7.42 7.35 - 7.45 [facility] PCO2, Arterial 36 35 - 45 mmHg [facility] PO2, Arterial 283(H) 85 - 104 mmHg [facility] Bicarbonate, Arterial 22.8 20.0 - 26.0 mmol/L [facility] Base Excess, Arterial -2.0 -3.0 - 3.0 mmol/L [facility] Hgb Blood Gas 12.6 11.7 - 15.5 gm/dL [facility] Oxyhemoglobin, Arterial 99.0(H) 94.0 - 97.0 % [facility] Carboxyhemoglob in, Arterial 0.6 % [facility] Comment: Nonsmokers: 0.5-1.5% COHB Smokers: Variable, but usually less than 10% Toxic: 20-30% COHB Lethal: Greater than 60% COHB Methemoglobin, Arterial 0.0 <=1.5 % [facility] Na Whole Blood 144 135 - 145 mmol/L [facility] K Whole Blood 4.0 3.5 - 5.0 mmol/L [facility] Comment: Please note: Patients with WBC >100,000 may have falsely elevated Potassium levels. Contact the Clinical Chemistry Laboratory if there are any questions. ICa Whole Blood 1.22 1.15 - 1.33 mmol/L [facility] Comment: Note: ??Total bilirubin higher than 20 mg/dL may lead to falsely low ionized calcium. CL Whole Blood 106 98 - 107 mmol/L [facility] Gluc Whole Bld 102 65 - 199 mg/dL [facility] Comment:Diabetes: >=200 mg/d L plus symptoms. Lactate WB 1.2 0.5 - 2.2 mmol/L [facility] FIO2 Art 95 % [facility] Flow Art 1.1 LPM [facility] PF Ratio Art 298 [facility] Temp Art 35.6 Celsius [facility] Blood specimen (specimen) 09/21/2016 8:18 AM EST 09/21/2016 8:18 AM EST Alirio Esparza MD POINT OF CARE TEST ORDERABLES [facility] [place] [address] * Prepare RBC (09/21/2016 7:05 AM EST) Dispensed? Yes [facility] Blood specimen (specimen) 09/21/2016 7:05 AM EST 09/21/2016 7:02 AM EST Alirio Esparza MD BLOOD BANK PRODUCT ORDERABLES [facility] [place] [address] * POCT Glucose (09/21/2016 6:42 AM EST) Glucose, POC 104 65 - 199 mg/dL [facility] Comment: Supplemental ranges: <140 mg/dL before meals <180 mg/dL all other times of the day Blood specimen (specimen) 09/21/2016 6:42 AM EST 09/21/2016 6:42 AM EST Alirio Esparza MD POINT OF CARE TEST ORDERABLES Performing Organization Address City/[facility]/ZIP Co de Phone Number [facility] [place] [address] documented in this encounter Visit Diagnoses Diagnosis [...] dose on Wed09/21/16 at 1230, Until Discontinued, [place] teeth, Routine Given 09/25/2016 9:40 AM EST [...] if phenyleprine and/or vasopressin ineffective.Call pager # [phone] if initiated., Routine Rate/Dose Change 09/21/2016 2:27 [...] L/min/M2. Maximum volume 2 L. Call warehouse analyst for additional fluid orders: pager #[phone]. Rate/Dose Verify 09/22/2016 10:00 AM EST 10 [...] Aile Whitfield RN)1150 (Given - Provider: Marek Barnes, [...] dose on Wed09/21/16 at 1230, Until Discontinued, [place] teeth, Routine 0900 (Not Given - Provider: [...] Whitfield RN) 0300 (Given - Provider: Alie Whtifield RN - Comment: given earlier in shift)1100 [...] Routine documented in this encounter Care Teams Inspector Receiving Relationship Specialty Start Date End Date Deborah Quiroga APRN PCP - General Family Medicine 03/24/16 02/04/23 documented as of this encounter
--- OUTSIDE RECORDS SUMMARY | 2024-06-20 15:55 | XMS_ITS | Encounter Summary ---
Author Organization [facility] [place] [address] Care Team Providers Care Hard Rock Drill Operator Name Role Phone Junaid, Deborah Shields APRN Primary Care Provider [phone] Encounter Details Date Type Department Care Team (Late st Contact Info) Description 05/19/2016 10:00 AM EDT Office [place] [phone] Alirio Esparza MD Nonrheumatic aortic valve stenosis [...] EST Office Visit Hematology and Oncology at [place] [phone] Markel Borjas MD [facility] [address] [place] [address] 11/02/2024 12:00 PM EDT Appoint[place] [address] 11/02/2024 1:00 PM EDT Office [place] [address] Magdalena Peralta MD [facility] [place] [address] 03/01/2025 4:15 PM EDT Office Visit Dermatology at [place] [address] [place] [phone] Marek Bonilla MD [address], [place] [address] documented as of this encounter Results * [...] (Bezet) 448 ms MUSE SYSTEM Calculated P Grapeview 37 degrees MUSE SYSTEM Calculated R Grapeview 31 degrees MUSE SYSTEM Calculated T Grapeview 25 degrees MUSE SYSTEM INTERPRETATION Normal sinus rhythm Normal ECG No previous ECGs available Confirmed by MD Becca, Deangelo ([id number]) on 05/19/2016 5:23:33 PM MUSE SYSTEM 05/19/2016 11:4 3 AM EDT 05/19/2016 5:23 PM EDT Alirio Esparza MD ECG ORDERABLES MUSE SYSTEM * Basic Metabolic Panel (non-fasting) (05/19/2016 11:32 AM EDT) Glucose 86 65 - 199 mg/dL [facility] [...] the following links into your internet browser. [email or web address] Blood specimen (specimen) 05/19/2016 11:32 AM EDT 05/19/2016 11:41 AM EDT Narrative Resulting Agency Comment Spec In Lab Alirio Esparza MD [place] [address] documented in this encounter Visit Diagnoses Diagnosis Nonrheumatic aortic valve stenosis Aortic valve disorders Nonrheumatic aortic valve stenosis Aortic valve disorders documented in this encounter Care Teams Hard Rock Drill Operator Relationship Specialty Start Date End Date Deborah Quiroga, PRODUCT DISTRIBUTION SPECIALIST PCP - General Family Medicine 03/24/16 02/04/23 documented as of this encounter
--- OUTSIDE RECORDS SUMMARY | 2024-06-20 15:55 | XMS_ITS | Encounter Summary ---
Author Organization [facility] Address [facility] [place] [address] Care Team Providers Care Candy Forming Machine Operator Name Role Phone RomieDanni rouse ANURAG Primary Care Provider [phone]- [phone] Encounter Details Date Type Department Care Team (Late st Contact Info) Description 01/23/2014 Orders Only Cardiology at [address] [address] Lee Kincaid MD [facility] [address] CARDIOLOGY [place], [place] [id number] SOB (shortness of breath) (Primary Dx) Social [...] EST Office Visit H[place]ology [place] [address] Markel Borjas MD [facility] DR [place] [address] 11/02/2024 12:00 PM EDT [place]oint[place] [address] 11/02/2024 1:00 PM EDT Office [place] [address] Magdalena Peralta MD [facility] [place] [address] 03/01/2025 4:15 PM EDT Office Visit Dermatology at [place] [address] [facility] [address] [place] [phone] Marek Bonilla MD [address], [address] [place] [address] documented as of this encounter Results * Echocardiogram Transthoracic(Leb) (01/23/2014 3:17 PM EDT) Pathologist Radio Systemes Ingenierie EF 50 HEARTLAB SYSTEM Anatomical Region Laterality Modality Other 01/23/2014 Narrative 01/23/2014 4:35 PM EDT Procedure: ? Transthoracic Echocardiogram Patient: ? KIRSTIE ECHOLS M ?(Age): 1955(58) Med Rec#: ?[id number] ? Sex: ?F ? Site Loc: ?[place] ? Ht / Wt: ??158(cm)/93(kg) Pt. Loc: ? Adult Floor ?BSA: ?2.02 Study Date: ?01/23/2014 ? Pt. Type: Inpatient Tape: ? Referring: Lee Kincaid ([id number]) Referring: ANNALISA Sign Builder Supervisor: Miguel Beverly Diagnosis:CPT Code(s): ??Echo Full (92836), ??Spectral Doppler (69170), Color Doppler (94120), Indication(s): ??Aortic stenosis Rhythm: Sinus HR ?BP [...] ? Mid-Inferior ?Hypokinetic ? Mid-Inferoseptal ?Hypokinetic ? Circle-Septal ? Hypokinetic ? Circle-Anterior ? Hypokinetic ? Circle-Lateral ?Hypokinetic ? Circle-Inferior ? Hypokinetic ? Circle-Tip ?Hypokinetic ? Chambers ?Value ?Units (Range) ? [...] Patient: KIRSTIE Mejias (Age): 1955(58) Med Rec#: [id number] Sex: F Site Loc: [place] Ht / Wt: 158(cm)/93(kg) Pt. Loc: Adult Floor BSA: 2.02 Study Date: 01/23/2014 Pt. Type: Inpatient Tape: Referring: Lee Kincaid ([id number]) Referring: ANNALISA Sign Builder Supervisor: Miguel Beverly Diagnosis:CPT Code(s): Echo Full (17568), Spectral Doppler (37239), Color Doppler (37541), Indication(s): Aortic stenosis Rhythm: Sinus HR BP [...] Hypokinetic Mid-Posterolateral Hypokinetic Mid-Inferior Hypokinetic Mid-Inferoseptal Hypokinetic Circle-Septal Hypokinetic Circle-Anterior Hypokinetic Circle-Lateral Hypokinetic Circle-Inferior Hypokinetic Circle-Tip Hypokinetic Chambers Value Units (Range) IVSd 2D [...] breath documented in this encounter Care Teams Candy Forming Machine Operator Relationship Specialty Start Date End Date Danni Laird APRN [address] [place] [address] PCP - General 01/23/14 11/11/14 documented as of this encounter
--- OUTSIDE RECORDS SUMMARY | 2024-06-20 15:55 | XMS_ITS | Encounter Summary ---
Author Organization [facility] [place] [address] Care Team Providers Care Cementer Machine Name Role Phone Eitan Danni OSBORN Primary Care Provider Encounter Details Date Type Department Care Team (Late st Contact Info) Description 01/23/2014 9:25 AM EDT - 01/23/2014 10:25 AM EDT Surgery [place] [address] Alan Jacobson MD [facility] [place] [address] CARDIAC CATHETERIZATION Social History Tobacco Use Types [...] by your doctor, do not take any invq-[id number] medicines or herbal preparations without first discussing this with your doctor or pharmacist. There is the possibility of side effect and interactions when these are combined. Follow up Care Who to Call with Questions or Problems If there are any questions or problems that you think might be related to your cardiac cath or angioplasty, contact the cell technician stone mason by calling [facility] at . documented in this encounter [...] Office Visit Hematology [place] [address] Markel Borjas MD [facility] [address] [place] [address] 11/02/2024 12:00 PM EDT Appointment [place] [address] 11/02/2024 1:00 PM EDT Office [place] [address] Magdalena Peralta MD [facility] DR RHEUMATOLOGY DEPT [place], [place] [phone] 03/01/2025 4:15 PM EDT Office Visit Dermatology at [place] [address] [facility] [place] [address] Marek Bonilla MD [address], [place] [address] documented as of this encounter Procedures Procedure Name Priority Date/Time Associated Diagnosis Comments ECHOCARDIOGRAM TRANSTHORACIC Routine 01/23/2014 3:17 PM EDT SOB (shortness of breath) documented in this encounter Results * Echocardiogram Transthoracic(Leb) (01/23/2014 3:17 PM EDT) EF 50 HEARTOmetria SYSTEM Anatomical Region Laterality Modality Other 01/23/2014 Narrative 01/23/2014 4:35 PM EDT Procedure: ? Transthoracic Echocardiogram Patient: ? ANDREW ONESIMO M ?(Age): 1955(58) Med Rec#: ?[id number] ? Sex: ?F ? Site Loc: ?[facility] ? Ht / Wt: ??158(cm)/93(kg) Pt. Loc: ? Adult Floor ?BSA: ?2.02 Study Date: ?01/23/2014 ? Pt. Type: Inpatient Tape: ? Referring: Lee Kincaid ([id number]) Referring: ANNALISA Wealth Management Director: Miguel Beverly Diagnosis:CPT Code(s): ??Echo Full (38968), ??Spectral Doppler (27541), Color Doppler (15097), Indication(s): ??Aortic stenosis Rhythm: Sinus HR ?BP [...] ? Mid-Inferior ?Hypokinetic ? Mid-Inferoseptal ?Hypokinetic ? Concepcion-Septal ? Hypokinetic ? Concepcion-Anterior ? Hypokinetic ? Concepcion-Lateral ?Hypokinetic ? Concepcion-Inferior ? Hypokinetic ? Concepcion-Tip ?Hypokinetic ? Chambers ?Value ?Units (Range) ? [...] 16:34:37 Images reviewed and interpretation verified [facility] Cardiac Ultrasound Laboratory Procedure Note Lee Kincaid MD - 01/23/2014 Procedure: Transthoracic Echocardiogram Patient: ANDREW Mejias (Age): 1955(58) Med Rec#: [id number] Sex: F Site Loc: [facility] Ht / Wt: 158(cm)/93(kg) Pt. Loc: Adult Floor BSA: 2.02 Study Date: 01/23/2014 Pt. Type: Inpatient Tape: Referring: Lee Kincaid ([id number]) Referring: ANNALISA Wealth Management Director: Miguel Beverly Diagnosis:CPT Code(s): Echo Full (32853), Spectral Doppler (70964), Color Doppler (06601), Indication(s): Aortic stenosis Rhythm: Sinus HR BP [...] Hypokinetic Mid-Posterolateral Hypokinetic Mid-Inferior Hypokinetic Mid-Inferoseptal Hypokinetic Concepcion-Septal Hypokinetic Concepcion-Anterior Hypokinetic Concepcion-Lateral Hypokinetic Concepcion-Inferior Hypokinetic Concepcion-Tip Hypokinetic Chambers Value Units (Range) IVSd 2D [...] 16:34:37 Images reviewed and interpretation verified [facility] Cardiac Ultrasound Laboratory Lee Kincaid MD [...] (Intra-Procedure), Routine 1224 (Given - Provid er: lAan Mckinnon MD) midazolam (PF) (VERSED) 1 mg/mL injection (CANCELED) ONCE PRN, Starting on Wed01/23/14 at 1158, Until Wed01/23/14 at 1224, Sleep, Cath (Intra-Procedure), Routine 1158 (Given - Provid er: Nitesh Stern RN)1224 (Given - Provider: Nitesh Stern RN) documented in this encounter Care Teams Cementer Machine Relationship Specialty Start Date End Date Danni Laird APRN [address] [facility] [facility] [address] [place] [address] PCP - General 01/23/14 11/11/14 documented as of this encounter
--- OUTSIDE RECORDS SUMMARY | 2024-06-20 15:55 | XMS_ITS | Encounter Summary ---
Author Organization [facility] [place] [address] Care Team Providers Care Manager Treasury Name Role Phone Ashley Quirogazac Shields APRN Primary Care Provider [phone] Encounter Details Date Type Department Care Team (Late st Contact Info) Description 03/24/2016 Notes [place] [phone] Alfa Lua Social History Tobacco Use Types [...] assessments completed: Wadsworth Score: 6/6 IADL: 7/7 Prototype Model Maker Strength Trials: 18.4, 15.0, 16.8 (right hand dominant) 5 meter walk test in seconds x3: 4.98, 4.88, 4.45 KCCQol: 98% Alfa Lua documented in this encounter Plan of Treatment Upcoming Encounters Date Type Department Care Team (Late st Contact Info) Description 06/23/2024 2:00 PM EST Office Visit [place] [address] [facility] [address] HEMATOLOGY [place] [address] 11/02/2024 12:00 PM EDT Appointment Pulmonology at [place] [address] 11/02/2024 1:00 PM EDT [place] [address] [facility] [place] [address] 03/01/2025 4:15 PM EDT Office Visit Dermatology at [place] [address] [facility] [place] [phone] Marek Bonilla MD [address] [place] [address] documented as of this encounter Visit Diagnoses Not on filedocumented in this encounter Care Teams Manager Treasury Relationship Specialty Start Date End Date Deborah Quiroga APRN PCP - General Family Medicine 03/24/16 02/04/23 documented as of this encounter
--- OUTSIDE RECORDS SUMMARY | 2024-06-20 15:55 | XMS_ITS | Encounter Summary ---
Author Organization [facility] [place] [address] Care Team Providers Care Polisher Brass Name Role Phone Eitan Danni ANURAG Primary Care Provider +[phone] Encounter Details Date Type Department Care Team (Late st Contact Info) Description 01/22/2014 Telephone Cardiology at [address] [phone] Cynthia Arrington LPN Social History Tobacco Use [...] LPN - 01/23/2014 2:39 PM EDT This telegraphic typewriter repairer did not receive a call back from [...] EST Office Visit Hematology [place] [phone] Markel Borjas MD [facility] [address] [place] [address] 11/02/2024 12:00 PM EDT Appointment [place] [phone] 11/02/2024 1:00 PM EDT Office [place] [address] Magdalena Peralta MD [facility] [place] [address] 03/01/2025 4:15 PM EDT Office Visit Dermatology at [place] [address] [facility] [place] [address] Marek Bonilla MD [address], [address] DERMATOLOGY [place], [place] [address] documented as of this encounter Visit Diagnoses Not on filedocumented in this encounter Care Teams Polisher Brass Relationship Specialty Start Date End Date Danni Laird APRN [address] [place] [address] PCP - General 01/23/14 11/11/14 documented as of this encounter
--- OUTSIDE RECORDS SUMMARY | 2024-06-20 15:55 | XMS_ITS | Encounter Summary ---
Author Organization [facility] [place] [address] Care Team Providers Care Helpdesk Analyst Name Role Phone Ashley Quirogazac Shields APRN Primary Care Provider [phone] Reason for Visit * Consultation (Urgent) - Closed Specialty Diagnoses / Procedures Referred By Contac t Referred To Contact Cardiac Surgery Diagnoses aortic stenosis, consideration for valve replacement Antelmo Burrell MD [address] [place] [address] [place] [address] Alirio Esparza MD [facility] DR C[place]IOTHORAC[place] [address] Referral ID Status Reason Start Date Expiration Date V isits Requested Visits Authorized [id number] Closed Connection Center 03/04/2016 03/04/2017 1 1 Encounter Details Date Type Department Care Team (Late st Contact Info) Description 03/24/2016 10:40 AM EDT Office Visit [place] [phone] Alirio Esparza MD Aortic valve stenosis, unspecified [...] is a patient of Antelmo Burrell [facility]. Mrs. Thacker is being sent for [...] 30 minute visit, 20 minutes were spent [id number] with the patient discussing aortic stenosis and valve replacement. documented in this encounter Plan of Treatment Upcoming Encounters Date Type Department Care Team (Late st Contact Info) Description 06/23/2024 2:00 PM EST Office Visit Hematology [place] [address] Markel Borjas MD [facility] DR HEMATOLOGY [place] [address] 11/02/2024 12:00 PM EDT Appointment Pulmonology at [place] [phone] 11/02/2024 1:00 PM EDT Office Visit [place] [phone] Magdalena Peralta MD [facility] [place] [address] 03/01/2025 4:15 PM EDT Office Visit Dermatology at [place] [address] [facility] [place] [phone] Marek Bonilla MD [address] [place] [address] documented as of this encounter Visit Diagnoses Diagnosis Aortic valve stenosis, unspecified etiology documented in this encounter Care Teams Helpdesk Analyst Relationship Specialty Start Date End Date Deborah Quiroga APRN PCP - General Family Medicine 03/24/16 02/04/23 documented as of this encounter
--- OUTSIDE RECORDS SUMMARY | 2024-06-20 15:55 | XMS_ITS | Encounter Summary ---
[place] [address] Care Team Providers Care Manager Workers Compensation Name Role Phone Mitchell Wilkes MD Primary Care Provider [phone] Reason for Visit * Reason Onset Date Comments Other 01/18/2014 Encounter Details Date Type Department Care Team (Late st Contact Info) Description 01/18/2014 Telephone Cardiology at [address] [address] Jesusita Garces Other Social History [...] EST Office Visit [place]ology [place] [address] Markel Borjas MD [facility] [address] HEMATOLOGY [place] [address] 11/02/2024 12:00 PM EDT Appointment Pulmonology at [place] [address] 11/02/2024 1:00 PM EDT Office Visit Rheumatology at [place] [phone] Magdalena Peralta MD [facility] [place] [address] 03/01/2025 4:15 PM EDT Office Visit Dermatology at [place] [address] [facility] [place] [address] Marek Bonilla MD [address], [place] [address] documented as of this encounter Visit Diagnoses Not on filedocumented in this encounter Care Teams Manager Workers Compensation Relationship Specialty Start Date End Date Mitchell Wlikes MD [facility] PCP - General 06/24/10 01/19/14 documented as of this encounter
--- OUTSIDE RECORDS SUMMARY | 2024-06-20 15:55 | XMS_ITS | Encounter Summary ---
Author Organization [facility] Address [facility] [place] [address] Care Team Providers Care Aerospace Project Manager Name Role Phone Junaid Deborah Shields APRN Primary Care Provider [phone] Encounter Details Date Type Department Care Team (Latest Contact Info) Description 05/19/2016 11:00 AM EDT Clinical [place] [phone] Nonrheumatic aortic valve stenosis Social History Tobacco [...] Hematology [place] [address] Markel Borjas MD [facility] [address] HEMATOLOGY [place] [address] 11/02/2024 12:00 PM EDT Appointment [place] [address] 11/02/2024 1:00 PM EDT Office [place] [address] Magdalena Peralta MD [facility] [place] [address] 03/01/2025 4:15 PM EDT Office Visit Dermatology at [address] [place] [address] Marek Bonilla MD [address] [facility], [place] [address] documented as of this encounter Procedures Procedure [...] (Bezet) 448 ms MUSE SYSTEM Calculated P [place] 37 degrees MUSE SYSTEM Calculated R [place] 31 degrees MUSE SYSTEM Calculated T [place] 25 degrees MUSE SYSTEM INTERPRETATION Normal sinus rhythm Normal ECG No previous ECGs available Confirmed by MD Becca, Deangelo ([id number]) on 05/19/2016 5:23:33 PM MUSE SYSTEM 05/19/2016 11:4 3 AM EDT 05/19/2016 5:23 PM EDT Alirio Esparza MD ECG ORDERABLES MUSE SYSTEM documented in this encounter Visit Diagnoses Diagnosis Nonrheumatic aortic valve stenosis Aortic valve disorders documented in this encounter Care Teams Aerospace Project Manager Relationship Specialty Start Date End Date Deborah Quiroga, ENGINEER EXHAUSTER PCP - General Family Medicine 03/24/16 02/04/23 documented as of this encounter
--- OUTSIDE RECORDS SUMMARY | 2024-06-20 15:55 | XMS_ITS | Encounter Summary ---
Author Organization [facility] [place] [address] Care Team Providers Care Drum Carrier Name Role Phone Jerel Sofia Garcia APRN Primary Care Provider [phone] Encounter Details Date Type Department Care Team (Latest Contact Info) Description 11/12/2014 8:10 AM EDT - 11/12/2014 11:59 PM EDT Hospital [place] [phone] CLINIC, DR ABE Burrell, Antelmo Porter MD [facility] [address] [place], [place] [address] Discharge Disposition: Home Social History Tobacco Use [...] Office Visit Hematology [place] [address] Markel Borjas MD [facility] [place] [address] 11/02/2024 12:00 PM EDT Appointment [place] [address] 11/02/2024 1:00 PM EDT Office [place] [phone] Magdalena Peralta MD [facility] [place] [address] 03/01/2025 4:15 PM EDT Office Visit Dermatology at [place] [address] [facility] [place] [address] Marek Bonilla MD [address] [facility] [place] [address] documented as of this encounter Procedures Procedure [...] mLs documented in this encounter Care Teams Drum Carrier Relationship Specialty Start Date End Date Sofia Beltrán APRN [address] [place] [address] PCP - General 11/12/14 03/23/16 documented as of this encounter
--- OUTSIDE RECORDS SUMMARY | 2024-06-20 15:55 | XMS_ITS | Encounter Summary ---
Author Organization [facility]ly [facility] [place] [address] Care Team Providers Care Primary School Teacher Name Role Phone Mitchell Wilkes MD Primary Care Provider [phone] Encounter Details Date Type Department Care Team (Late st Contact Info) Description 01/19/2014 Orders Only Cardiology at [address] [address] Chele Randolph PA [facility] DR CARDIOLOGY DEPT. [place], [place] [phone] Cardiomyopathy (Primary Dx) Social History Tobacco Use [...] EST Office Visit Hematology [place] [address] Markel Borjas MD [facility] DR HEMATOLOGY AND ONCOLOGY [place], [place] [phone] 11/02/2024 12:00 PM EDT Appointment [place] [address] 11/02/2024 1:00 PM EDT Office [place] [address] Magdalena Peralta MD [facility] [place] [address] 03/01/2025 4:15 PM EDT Office Visit Dermatology at [place] [address] [facility] [place] [address] Marek Bonilla MD [address] [facility] [address], [place] [address] documented as of this encounter Procedures Procedure [...] cardiomyopathies documented in this encounter Care Teams Primary School Teacher Relationship Specialty Start Date End Date Mitchell Wilkes MD [facility] PCP - General 06/24/10 01/19/14 documented as of this encounter
--- OUTSIDE RECORDS SUMMARY | 2024-06-22 14:09 | XMS_ITS | Clinical Summary ---
Author Organization [facility] Address [address] [place] [address] Care Team Providers Care Lead Relay Tester Name Role Phone Ashley Chavez Primary Care Provider Social History Tobacco Use Types Packs/Day [...] 1955 Fall Risk Screening 2020 COVID-19 Vaccine (2023- season) 2024 RSV Immunization ( o r 60+ Years) (1 - 1-dose 75+ series) 2030 Insurance MEDICARE [place] OF [facility] Address: [address] [address] Care Teams Lead Relay Tester Relationship Specialty Start Date End Date Ashley Chavez ARNP [address] [place], [place] [phone] PCP - General 07/11/10
--- OUTSIDE RECORDS SUMMARY | 2024-06-22 14:10 | XMS_ITS | Encounter Summary ---
Author Organization [facility] Address [facility] [place] [address] Care Team Providers Care Telegraphic Typewriter Repairer Name Role Phone Magdalena Acosta MD Primary Care Provider [phone] Encounter Details Date Type Department Care Team [...] EST Office Visit Hematology [place] [address] Markel Borjas MD [facility] [address] HEMATOLOGY [place] [address] 11/02/2024 12:00 PM EDT Appointment [place] [address] 11/02/2024 1:00 PM EDT Office [place] [address] Magdalena Peralta MD [facility] [place] [address] 03/01/2025 4:15 PM EDT Office Visit Dermatology at [place] [address] [facility] [place] [address] Marek Bonilla MD [address] [facility] [address], [address] [place] [address] documented as of this encounter Visit Diagnoses Not on filedocumented in this encounter Care Teams Telegraphic Typewriter Repairer Relationship Specialty Start Date End Date aMgdalena Acosta MD [address] [place] [address] PCP - General Family Medicine 02/05/23 documented as of this encounter
--- OUTSIDE RECORDS SUMMARY | 2024-06-22 14:10 | XMS_ITS | Encounter Summary ---
Author Organization [facility] Address [address] [place] [address] Care Team Providers Care Reservation Clerk Name Role Phone Unavailable Primary Care Provider Unavailabl e Encounter Details Date Type Department Care Team (Late st Contact Info) Description 03/24/2007 Results Only [facility] Non-Invasive Cardiology - [facility] [address] [place], [place] [address] Ashley Chavez, WILLIAM [address] [place] [address] Social History Tobacco Use Types Packs/Day Years [...] ? PURNIMA THACKER ? Accession #: ? [id number] : ? 1955 (Age: 51) ??F ?Collect Date: ? 03/24/2007 Location: ? [facility] ? Receive Date: ? 03/28/2007 Provider: ?ASHLEY THOMAS Copy to: ? Specimen/Source: ?ThinPrep Pap Test, Endocervix, processed on Noovo ThinPrep Imaging System, with manual evaluation Last [...] Report Date: ??03/31/2007 10:08 End of Report PUAL ARELLANO 03/24/2007 03/28/2007 us Ashley THOMAS PATHOLOGY ORDERABLES Final Res ult PAUL ARELLANO [address] [place] [address] documented in this encounter Visit Diagnoses Not on filedocumented in this encounter
--- OUTSIDE RECORDS SUMMARY | 2024-06-22 14:10 | XMS_ITS | Encounter Summary ---
Author Organization [facility] Address [address] [place] [address] Care Team Providers Care Tile Sorter Name Role Phone Unavailable Primary Care Provider Unavailabl e Encounter Details Date Type Department Care Team (Late st Contact Info) Description 06/29/2007 Results Only [facility] - Maple conversion [address] [place] [address] Sánchez Acevedo MD [address] [place] [address] Social History Tobacco Use Types Packs/Day Years [...] ? PURNIMA THACKER ? Accession #: ? [id number] ? : ? 1955 (Age: 51) ??F [...] covered by a smooth white serosa. ??Three enrollment eligibility representative sections of the gallbladder are submitted in one cassette. ??(Sriram Scott)/[facility] End of Report PAUL OSORIO [facility] 06/29/2007 06/29/2007 21: 23 EST us Sánchez Acevedo MD PATHOLOGY ORDERABLES Final Result Performing Organization Address City/State/[facility] Co de Phone Number PAUL [address] [address] documented in this encounter Visit Diagnoses Not on filedocumented in this encounter
--- OUTSIDE RECORDS SUMMARY | 2024-06-22 14:10 | XMS_ITS | Encounter Summary ---
Author Organization [facility] Address [address] [place] [address] Care Team Providers Care Chronometer Assembler Name Role Phone Ashley Chavez Primary Care Provider [phone] Encounter Details Date Type Department Care Team (Late st Contact Info) Description 01/07/2023 Lab Requisition [facility] Pathology & Laboratory Medicine - [address] [address] Outr Resulting Lab, Provider Social History Tobacco [...] S ORDERABLES Final Result Performing Organization Address [facility] de Phone Number [facility] [address] [place] [address] * PROTEIN, TOTAL (01/06/2023 14:40 EDT) Blood VENOUS BLOOD / Unknown 01/06/2023 14:40 EDT 01/07/2023 17:37 EDT us Provider Outr Resulting Lab CHEMISTRY & BLOOD GA S ORDERABLES Final Result Performing Organization Address [facility] de Phone Number [facility] [address] [place] [address] * (ABNORMAL) EXTRACTABLE NUCLEAR ANTIGEN PANEL (01/06/2023 14:40 EDT) SSA Antibody 1.3 <20.0 Units 01/08/2023 15:42 EDT [facility] Comment: ? Negative: <20.0 Units ? Weak Positive: 20.0 - 39.9 Units ? Moderate Positive: 40.0 - 80.0 Units ? Strong Positive: >80.0 Units Results were obtained with the InnovEco QUANTA Lite SS-A DOMO. ??SS-A values obtained with different manufacturers' assay methods may not be used interchangeably. ??The magnitude of the reported IgG levels cannot be correlated to an endpoint titer. SSB Antibody 1.5 <20.0 Units 01/08/2023 15:42 EDT [facility] Comment: ? Negative: <20.0 Units ? Weak Positive: 20.0 - 39.9 Units ? Moderate Positive: 40.0 - 80.0 Units ? Strong Positive: >80.0 Units Results were obtained with the WaynaVA QUANTA Lite SS-B DOMO. ??SS-B values obtained with different manufacturers' assay methods may not be used interchangeably. ??The magnitude of the reported IgG levels cannot be correlated to an endpoint titer. SM (Moreno) Antibody 15.3 <20.0 Units 01/08/2023 15:42 EDT [facility] Comment: ? Negative: <20.0 Units ? Weak Positive: 20.0 - 39.9 Units ? Moderate Positive: 40.0 - 80.0 Units ? Strong Positive: >80.0 Units Results were obtained with the INOVA QUANTA Lite Sm DOMO. ??Sm values obtained with different manufacturers' assay methods may not be used interchangeably. ??The magnitude of the reported IgG levels cannot be correlated to an endpoint titer. [facility] Antibody 149.1(H) <20.0 Units 01/08/2023 15:42 [facility] Comment: ? Negative: <20.0 Units ? Weak Positive: 20.0 - 39.9 Units ? Moderate Positive: 40.0 - 80.0 Units ? Strong Positive: >80.0 Units Results were obtained with the Inova Quanta Lite [facility] DOMO. [facility] values obtained with different coke oven mason's assay methods may not be used interchangeaby. ??The magnitude of the reported IgG levels cannot be be correlated to an endpoint titer. A positive result in the Quanta Lite [facility] DOMO indicates the presence of antibodies reactive with the [facility]/Sm complex but cannot distinguish between anti-Sm and anti-[facility] activity. Blood VENOUS BLOOD / Unknown 01/06/2023 14:40 EDT 01/07/2023 17:37 EDT us Provider Outr Resulting Lab IMMUNOLOGY AND SEROL OGY ORDERABLES Final Result [facility] [address] [place] [address] * (ABNORMAL) ANTI NUCLEAR AB (FRANCISCO), IFA (01/06/2023 14:40 EDT) FRANCISCO Interpretation Positive(A) Negative 01/08/2023 15:22 EDT [facility] [...] Pattern 1 1:5120 Speckled 01/08/2023 15:22 EDT [facility] Blood VENOUS BLOOD / Unknown 01/06/2023 14:40 EDT 01/07/2023 17:37 EDT Narrative [facility] - 01/08/2023 15:22 EDT Results were obtained with the INOVA NOVA Lite HEp-2 FRANCISCO Kit by indirect immunofluorescence. us Provider Outr Resulting Lab IMMUNOLOGY AND SEROL OGY ORDERABLES Final Result [facility] [address] [place] [address] documented in this encounter Visit Diagnoses Not on filedocumented in this encounter Care Teams Chronometer Assembler Relationship Specialty Start Date End Date Ashley Chavez ARNP [address] [place] [address] PCP - General 07/11/10 documented as of this encounter
--- OUTSIDE RECORDS SUMMARY | 2024-06-22 14:10 | XMS_ITS | Encounter Summary ---
Author Organization [facility] Address [facility] [place] [address] Care Team Providers Care Label Cutter Name Role Phone Magdalena Acosta MD Primary Care Provider [phone] Reason for Visit * Reason Comments Follow-up * Consultation (Routine) - Closed Specialty Diagnoses / Procedures Referred By Contac t Referred To Contact Hematology and Oncology Diagnoses Anemia, unspecified type Consuelo Guerrero, DO [address] [facility] [address] [address] [place] [address] [place] [address] [address] [facility] Hem Onc [address] [place] [address] Referral ID Status Reason Start Date Expiration Date V isits Requested Visits Authorized [id number] Closed Consult, Test & Treat 04/11/2024 04/11/2025 1 1 Encounter Details Date Type Department Care Team (Late st Contact Info) Description 05/12/2024 10:00 AM EDT Office Visit Hematology [place] [address] Markel Borjas MD [facility] [address] [place] [address] Chronic idiopathic neutropenia Social History [...] AM EDT Hematology Outpatient Clinic [facility] Hematology Outpatient Consult Note CC: [...] TOUCH PREP, CLOT SECTION, CORE BIOPSY); [OSR# [id number], COLLECTED 06/23/2016, 19 SLIDES]: 1. 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 pantoprazole EC (Protonix) 40 [...] intact. Extremities: No edema. Labs: Hgb= 11.7 Afcb=007 ANC= 2.5 Assessment: 60 year-old woman found [...] EST Office Visit Hematology [place] [address] Markel Borjas MD [facility] [address] [place] [address] 11/02/2024 12:00 PM EDT Appointment [place] [address] 11/02/2024 1:00 PM EDT Office [place] [address] Magdalena Peralta MD [facility] [place] [address] 03/01/2025 4:15 PM EDT Office Visit Dermatology at [place] [address] [facility] [place] [address] Marek Bonilla MD [address] [facility] [place] [address] documented as of this encounter Results * Reticulocyte Count (05/12/2024 8:56 AM EDT) [facility] Reticulocyte % 1.20 0.70 - 2.50 [...] EDT 05/12/2024 8:56 AM EDT Tova Russell TEXTILE KNITTER HEMATOLOGY ORDERABL ES [facility] [place] [address] * (ABNORMAL) Comprehensive metabolic panel Non-fasting (05/12/2024 8:56 AM EDT) [facility] Glucose 86 65 - 199 mg/dL [...] 3.2 - 5.2 g/dL 05/12/2024 11:36 AM [facility] Aspartate Aminotransferase 24 <=30 unit/L [...] mL/min/1. 73 m?? 05/12/2024 11:36 AM EDT [facility] Comment: This patient's [...] EDT 05/12/2024 8:56 AM EDT Tova Russell TEXTILE KNITTER CHEMISTRY ORDERABLE S Performing Organization Address City/State/[facility] Co de Phone Number [facility] [place] [address] * (ABNORMAL) CBC (with Diff) (05/12/2024 8:56 AM EDT) White Blood Cell 3.47(L) 4.00 - 9.50 x10(3)/mc L 05/12/2024 9:32 AM EDT [facility] Red Blood Cell 3.31(L) 4.00 - 5.21 x10(6)/mc L 05/12/2024 9:32 AM EDT [facility] Hemoglobin 11.1(L) 11.7 - 15.5 g/dL 05/12/2024 9:32 AM EDT [facility] Hematocrit 33.2(L) 35.7 - 45.8 % 05/12/2024 9:32 AM EDT [facility] Mean Cell Volume 100.3(H) 82.6 - 94.4 fL 05/12/2024 9:32 AM EDT [facility] Mean Cell Hemoglobin 33.5(H) [...] Lymph % 16.7 % 05/12/2024 9:32 AM [facility] Lymph Absolute 0.58(L) 0.90 - 3.20 x10(3)/mc L 05/12/2024 9:32 AM [facility] Monocyte % 12.1 % 05/12/2024 9:32 AM [facility] Monocyte Absolute 0.42 0.30 - 0.90 x10(3)/mc L 05/12/2024 9:32 AM [facility] Eos % 0.6 % 05/12/2024 9:32 AM EDT [facility] Eos Absolute <0.04 0.00 - 0.40 x10(3)/mc L 05/12/2024 9:32 AM EDT [facility] Basophil % 0.6 % 05/12/2024 9:32 AM EDT [facility] Baso Absolute <0.04 0.00 [...] EDT 05/12/2024 8:56 AM EDT Tova Russell TEXTILE KNITTER HEMATOLOGY ORDERABL ES [facility] [place] [address] documented in this encounter Visit Diagnoses Diagnosis Chronic idiopathic neutropenia Other neutropenia documented in this encounter Care Teams Label Cutter Relationship Specialty Start Date End Date Magdalena Acosta MD [address] [place] [address] PCP - General Family Medicine 02/05/23 documented as of this encounter
--- OUTSIDE RECORDS SUMMARY | 2024-06-22 14:10 | XMS_ITS | Encounter Summary ---
Author Organization [facility] Address [facility] [place] [address] Care Team Providers Care Skein Drier Name Role Phone Magdalena Acosta MD Primary Care Provider [phone] Encounter Details Date Type Department Care Team [...] EST Office Visit Hematology [place] [address] Markel Borjas MD [facility] [address] [place] [address] 11/02/2024 12:00 PM EDT Appointment [place] [address] 11/02/2024 1:00 PM EDT Office [place] [address] Magdalena Peralta MD [facility] [place] [address] 03/01/2025 4:15 PM EDT Office Visit Dermatology at [place] [address] [facility] [place] [address] Marek Bonilla MD [address] [place] [address] documented as of this encounter Visit Diagnoses Not on filedocumented in this encounter Care Teams Skein Drier Relationship Specialty Start Date End Date Magdalena Acosta MD [address] [place] [address] PCP - General Family Medicine 02/05/23 documented as of this encounter
--- OUTSIDE RECORDS SUMMARY | 2024-06-22 14:10 | XMS_ITS | Encounter Summary ---
Author Organization [facility] [place] [address] Care Team Providers Care Emergency Vehicle Operator Name Role Phone Magdalena Acosta MD Primary Care Provider [phone] Reason for Visit * Reason Onset Date Comments Medication Refill 05/24/2024 Encounter Details Date Type Department Care Team (Late st Contact Info) Description 05/24/2024 Refill [place] [address] Magdalena Peralta MD [facility] [place] [address] Social History Tobacco Use Types Packs/Day Years Used Date Smoking Tobacco: Never Smokeless Tobacco: Never Alcohol Use Standard Drinks/Week Comments No 0 (1 standard drink = 0.6 oz pur e alcohol) none [facility] Inpatient Questions Answer Date Recorded Does [...] 200 mg tablet [facility] - [place], [place] - [address] [facility] [address] [facility] [address] documented in this encounter Plan of Treatment Upcoming Encounters Date Type Department Care Team (Late st Contact Info) Description 06/23/2024 2:00 PM EST Office Visit Hematology [place] [address] Markel Borjas MD [facility] [address] [place] [address] 11/02/2024 12:00 PM EDT Appointment [place] [address] 11/02/2024 1:00 PM EDT Office [place] [address] Magdalena Peralta MD [facility] [place] [address] 03/01/2025 4:15 PM EDT Office Visit Dermatology at [address] [place] [phone] Marek Bonilla MD [address] [facility], [place] [address] documented as of this encounter Visit Diagnoses Not on filedocumented in this encounter Care Teams Emergency Vehicle Operator Relationship Specialty Start Date End Date Magdalena Acotsa MD [address] [place] [address] PCP - General Family Medicine 02/05/23 documented as of this encounter
--- OUTSIDE RECORDS SUMMARY | 2024-06-22 14:10 | XMS_ITS | Encounter Summary ---
Author Organization [facility] Address [address] [place] [address] Care Team Providers Care Systems Accountant Name Role Phone Unavailable Primary Care Provider Unavailabl e Encounter Details Date Type Department Care Team (Late st Contact Info) Description 04/20/2005 Results Only [facility] - [facility] [address] [place] [address] Ziggy Valiente MD [address] [place] [address] Social History Tobacco Use Types Packs/Day [...] ? PURNIMA THACKER ? Accession #: ? [id number] ? : ? 1955 (Age: 49) ??F [...] correlation with endoscopic appearance is recommended. (Dr. Chino)/[facility] Document reviewed and electronically signed [...] is entirely submitted in one cassette. ??(Arabella Santos)/[facility] End of Report [facility]UL ARE[facility] 04/20/2005 04/21/2005 15: 04 EDT us Ziggy Valiente MD PATHOLOGY ORDERABLES Final Resul t [facility] [address] [place] [address] documented in this encounter Visit Diagnoses Not on filedocumented in this encounter
--- OUTSIDE RECORDS SUMMARY | 2024-06-22 14:10 | XMS_ITS | Encounter Summary ---
Author Organization [facility] Address [address] [place] [address] Care Team Providers Care Pole Shaver Helper Name Role Phone Scott, Ashley WILLIAM Primary Care Provider [phone] Encounter Details Date Type Department Care Team (Late st Contact Info) Description 05/12/2019 Results Only [facility] [phone] Nadira Gregorio MD [address] [place] [phone] Social History Tobacco Use Types Packs/Day [...] ? PURNIMA THACKER ? Accession #: ? [id number] ? : ? 1955 (Age: 63) ??F ? Collect Date: ? 05/12/2019 ? Location: ? [facility] ? Receive Date: ? 05/12/2019 ? Provider: NADIRA GREGORIO MD Copy to: WINTER HANKINS FIBER WORKER ? Final Pathologic Diagnosis: COLON, CECUM, [...] Gregorio MD PATHOLOGY ORDERABLES Final Resul t [facility] [address] [place] [address] documented in this encounter Visit Diagnoses Not on filedocumented in this encounter Care Teams Pole Shaver Helper Relationship Specialty Start Date End Date Ashley Chavez ARNP [address] [place] [address] PCP - General 12/10/10 documented as of this encounter
--- OUTSIDE RECORDS SUMMARY | 2024-06-22 14:10 | XMS_ITS | Encounter Summary ---
Author Organization [facility] Address [address] [place] [address] Care Team Providers Care Aluminum Molder Name Role Phone Scott, Ashley WILLIAM Primary Care Provider [phone] Encounter Details Date Type Department Care Team (Late st Contact Info) Description 12/23/2016 Results Only [facility] [phone] Deborah Quiroga, SHERIFFS DETECTIVE [address] [place] [phone] Social History Tobacco Use Types Packs/Day [...] ? PURNIMA THACKER ? Accession #: ? [id number] ? : ? 1955 (Age: 61) ??F ?Collect Date: ? 12/23/2016 ? Location: ? [facility] ? Receive Date: ? 12/25/2016 ? Provider: DEBORAH QUIROGA ASSET PROTECTION PROFESSIONAL Copy to: ? Final Report SPECIMEN ADEQUACY ? Satisfactory for Evaluation - transformation zone component present GENERAL CATEGORIZATION ? Negative for Intraepithelial Lesion or Malignancy ?? Last Menstrual Period: years Specimen/Source: ??Pap Test, Cervix, ThinPrep Imaging System with manual evaluation Document reviewed and electronically signed by: ? Monica Cason, [facility](ASCP) ? Report ??Date: 01/06/2017 09:11 HPV with Pap Test ? Date Ordered: ? 01/06/2017 ? Status: ?? Signed Out ?Date Complete: ? 01/07/2017 ? By: ??System Interface ? Date Reported: ? 01/07/2017 ? Interpretation RESULT: Negative for HPV. No E6 or E7 mRNA is detected from HPV types 16,18,31,33,35, 39,45,51,52,56,58, 59,66, and 68 by ripening room hand mediated amplification. Comments Document reviewed and electronically signed by: ? System Interface ? Report date: 01/07/2017 By the signature above, the attending physician certifies that he/she has personally conducted a gross and/or microscopic examination of the described specimens and rendered or confirmed the above diagnosis. End of Report [facility] 12/23/2016 12/25/2016 us Deborah Quiroga SHERIFFS DETECTIVE PATHOLOGY ORDERABLES Final Re sult [facility] [address] [place] [address] documented in this encounter Visit Diagnoses Not on filedocumented in this encounter Care Teams Aluminum Molder Relationship Specialty Start Date End Date Ashley Chavez ARNP [address] [place] [address] PCP - General 07/11/10 documented as of this encounter
--- OUTSIDE RECORDS SUMMARY | 2024-06-22 14:10 | XMS_ITS | Encounter Summary ---
Author Organization [facility] [place] [address] Care Team Providers Care Burrer Marker Axle Name Role Phone Magdalena Acosta MD Primary Care Provider [phone] Encounter Details Date Type Department Care Team (Late st Contact Info) Description 05/18/2024 Interpretation Only [address] [phone] Magdalena Acosta MD [address] [place], [place] [id number] Social History Tobacco Use Types Packs/Day Years [...] EST Office Visit Hematology [place] [address] Markel Borjas MD [facility] [address] [place] [address] 11/02/2024 12:00 PM EDT Appointment [place] [phone] 11/02/2024 1:00 PM EDT Office [place] [address] Magdalena Peralta MD [facility] [place] [address] 03/01/2025 4:15 PM EDT Office Visit Dermatology at [place] [address] [address] [place] [phone] Marek Bonilla MD [address] [place] [address] documented as of this encounter Procedures Procedure Name Priority Date/Time Associated Diagnosis Comments DXA CENTRAL SPINE, HIP, AND/OR WHOLE BODY (GENERIC) Routine 05/18/2024 11:21 AM EDT documented in this encounter Results * DXA Central Spine, Hip, and/or Whole Body (Generic) (05/18/2024 11:21 AM EDT) PT CLASS O RAD ADMITDTTM [id number] [facility] PT [facility] INFO [id number]^Dave ^Magdalena RAD EXAM DESC XDXAC^BD Bone Density [...] have questions please contact the health healthcare market consultant that requested your imaging first. ? [...] who have questions please contactthe health healthcare market consultant that requested your imaging first. Magdalena Acsota MD IMG DEXA ORDERABLES documented in this encounter Visit Diagnoses Not on filedocumented in this encounter Care Teams Burrer Marker Axle Relationship Specialty Start Date End Date Magdalena Acosta MD [address] [place] [address] PCP - General Family Medicine 02/05/23 documented as of this encounter
--- OUTSIDE RECORDS SUMMARY | 2024-06-22 14:10 | XMS_ITS | Encounter Summary ---
Author Organization [facility] Address [address] [place] [address] Care Team Providers Care Inflated Pad Buffer Name Role Phone Unavailable Primary Care Provider Unavailabl e Encounter Details Date Type Department Care Team (Late st Contact Info) Description 07/08/2010 10:55 EST - 07/08/2010 10:56 EST Hospital Encounter [facility] - Other [address] [place] [address] Ashley Chavez, WILLIAM [address] [place] [id number] Discharge Disposition: Home or Self Care Social [...]
--- OUTSIDE RECORDS SUMMARY | 2024-06-22 14:10 | XMS_ITS | Encounter Summary ---
Author Organization [facility] [place] [address] Care Team Providers Care Distribution Center Administrator Name Role Phone Magdalena Acosta MD Primary Care Provider [phone] Encounter Details Date Type Department Care Team (Latest Contact Info) Description 06/05/2024 1:04 PM EST - 06/05/2024 3:08 PM EST Hospital Encounter [place] [address] Markel Borjas MD [facility] [address] [place] [address] Discharge Disposition: Home Social History Tobacco Use [...] 5pm or on a weekend: Call the [facility] clicker operator at and ask for the physician operations administrator covering for your doctor. Instructions following sedation [...] drainage occurs, please contact [place] [address] [email or web address] documented in this encounter Medications [...] EST Office Visit Hematology [place] [address] Markel Borjas MD [facility] [address] [place] [address] 11/02/2024 12:00 PM EDT Appointment [place] [address] 11/02/2024 1:00 PM EDT Office [place] [phone] Magdalena Peralta MD [facility] [address] RHEUMATOLOGY DEPT [place], [place] [id number] 03/01/2025 4:15 PM EDT Office Visit Dermatology at [place] [address] [place] [address] Marek Bonilla MD [address], [place] [address] documented as of this encounter Procedures Procedure [...] EST Diagnostic Bone Marrow Biopsies & Aspirations ([address]) 06/05/2024 2:03 PM EST Anemia, in pt with longstanding neutropenia CBC (WITH DIFF) Routine 06/05/2024 1:45 PM EST ([facility]) BONE MARROW BIOPSY AND ASPIRATION; DIAGNOSTIC Routine 06/05/2024 1:07 PM EST documented in this encounter Results * Myelodysplastic Syndrome (MDS) FISH Panel (06/05/2024 2:22 PM EST) Specimen Condition adequate 06/08/2024 11:23 PM [facility] Indication for Study Anemia, in patient with presumed hx of benign neutropenia 06/08/2024 11:23 PM EST [facility] FISH Panel Summary NEGATIVE for all FISH Panel markers 06/08/2024 11:23 PM [facility] FISH Results 5q deletion, monosomy 5, 7q deletion, monosomy 7, trisomy 8, and 20q deletion NOT DETECTED. 06/08/2024 11:23 PM [facility] ISCN Nomenclature nuc josselin(D5S23,EGR1)x2[ 200],(D7Z1,H3M526) x2[200],(D8Z2,D20S 108)x2[200] 06/08/2024 11:23 PM [facility] Culture Type Direct Turrell 06/08/20 11:23 PM [facility] FISH Method Interphase 06/08/2024 11:23 PM [facility] Interpretation Interphase FISH analysis [...] analysis using probes for CEP7/D7Z1/7p11.1q1 1.1 and J4J683/7q31 loci ([employer] shows 1.5% and 0% of 200 cells with 7q signal deletion (7q-) and chromosome 7 signal loss (monosomy 7) patterns, respectively. These are within acceptable reference limits (7q deletion: 0-6.3%; monosomy 7: 0-4.4%). Thus, there is no evidence for 7q deletion and monosomy 7. Interphase FISH analysis using probes for CEP8/D8Z2/8p11.1q1 1.1 and Z27U948/20q12 loci ([employer] shows 0% and 2.5% of 200 cells with a chromosome 8 signal gain and 20q signal deletion patterns, respectively. These are within acceptable reference limits (trisomy 8: 0-5.1%; 20q deletion: 0-6.3%). Thus, there is no evidence for trisomy 8 and 20q deletion. Correlation with clinical and pathological studies is suggested. 06/08/2024 11:23 PM [facility] Technical Methods FISH is [...] The FISH probes are directly-labeled by the trial justice ([employer] or [employer]) with either a spectrum orange, green, or aqua fluorochrome. Cells are stained with DAPI ([employer]), visualized through fluorescence microscopy, and images captured on the CytoVision software ([employer]). Results are reported based on an International System for Human Cytogenomic Nomenclature. 06/08/2024 11:23 PM [facility] Limitations & Disclaimers The FISH test was developed and its performance characteristics were determined by the [facility] ([facility] Cytogenetics Laboratory as required by The Clinical [...] verified the test's accuracy and precision. The [facility] Cytogenetics Laboratory is certified under the CLIA'88 as qualified to perform high complexity clinical laboratory testing. Chromosome alterations outside the regions complementary to these DNA FISH probes will not be detected. 06/08/2024 11:23 PM EST [facility] Sign-out by Professional component performed by Lizette Bullock, Ph.D., [facility], [facility] [address] , [place], [place] (CLIA #: [id number]). 06/08/2024 11:23 PM EST [facility] Bone Marrow Non Blood Collection / Unknown 06/05/2024 2:22 PM EST 06/05/2024 3:07 PM EST Georges Boucher MD MOLECULAR ORDERABLES Performing Organization Address City/[facility]/ZIP Co de Phone Number [facility] [place] [phone] * Chromosome Analysis, Acquired ([facility]) (06/05/2024 2:22 PM EST) Chromosome, Leukemia/Lymph ananya ([facility]) See Scanned Result 06/14/2024 6:28 PM EST REF [facility] Specimen Condition ([facility]) 06/14/2024 6:28 PM EST REF [facility] Bone Marrow Non Blood Collection / Unknown 06/05/2024 2:22 PM EST 06/05/2024 3:07 PM EST Georges Boucher MD LAB SEND OUT ORDERAB LES REF [facility] [address] [place] [address], [facility] * DH HemeSeq (Bone Marrow) (06/05/2024 2:22 PM EST) NGS Report Status Normal 06/13/2024 10:21 AM EST [facility] Bone Marrow Non Blood Collection / Unknown 06/05/2024 2:22 PM EST 06/05/2024 3:07 PM EST Georges Boucher MD MOLECULAR ORDERABLES [facility] [place] [address] * Immunophenotyping Flow Cytometry (06/05/2024 2:22 PM EST) Pathologist [facility] Final Diagnosis - No monotypic B-cell population, no monotypic plasma cell population, no phenotypically abnormal T-cell population or increase in blasts is detected. 06/06/2024 2:08 PM [facility] Signing Pathologist This result has been reviewed by Georges Boucher MD on 06/06/24 at 2:08 PM. 06/06/2024 2:08 PM [facility] Interpretation CD19+ B-cells show [...] significant blast populations identified. 06/06/2024 2:08 PM [facility] Lymphocyte % 4.7 % 06/06/2024 2:08 PM [facility] Monocyte % 3.0 % 06/06/2024 2:08 PM [facility] Granulocyte % 76.0 % 06/06/2024 2:08 PM [facility] CD45 DIM % 0.9 % 06/06/2024 2:08 PM [facility] CD38 Bright/CD138+ 0.2 % 06/06/2024 2:08 PM [facility] CD3+ % 70.0 % 06/06/2024 2:08 PM [facility] CD19+ % 17.0 % 06/06/2024 2:08 PM [facility] CD56+ % 12.0 % 06/06/2024 2:08 PM [facility] B-Cell:T-Cell Ratio 0.2 06/06/2024 2:08 PM [facility] [place]:Lambda Ratio 1.8 06/06/2024 2:08 PM [facility] CD4:CD8 Ratio 1.6 06/06/2024 2:08 PM [facility] Specimen Processing Cells for immunophenotypic analysis were derived from bone marrow. The following markers were assessed: CD2, CD3, CD4, CD5, CD7, CD8, CD10, CD19, CD20, CD38, CD45, CD56, CD138, kappa light chain, (c)kappa light chain, lambda light chain, (c)lambda light chain,CD13, CD14, CD34, CD45, CD117, and HLA-DR. 06/06/2024 2:08 PM [facility] Disclaimer Flow analysis is an ancillary study. A definite diagnosis requires correlation with the morphologic features of this process and if necessary, correlation with other ancillary studies like immunohistochemist ry, enzyme cytochemistry and/or cyto/molecular genetics. This test was developed and its performance characteristics determined by the Clinical Flow Cytometry Laboratory at [facility]. It has not been cleared or [...] clinical laboratory testing. 06/06/2024 2:08 PM EST [facility] Bone Marrow Non Blood Collection / Unknown 06/05/2024 2:22 PM EST 06/05/2024 3:07 PM EST Georges Boucher MD HEMATOLOGY ORDERABLE S Performing Organization Address [facility] Co de Phone Number [facility] [place] [address] * BM HOLD CYTOGENETICS/FISH (06/05/2024 2:22 PM EST) Bone Marrow Non Blood Collection / Unknown 06/05/2024 2:22 PM EST 06/05/2024 3:07 PM EST Narrative [facility] - 06/06/2024 10:47 AM EST ~3ml Markel Borjas MD PATHOLOGY/CYTOLOGY ORDERABLES Performing Organization Address [facility] de Phone Number [facility] [place] [address] * BM HOLD FLOW/MOLECULAR (06/05/2024 2:22 PM EST) Bone Marrow Non Blood Collection / Unknown 06/05/2024 2:22 PM EST 06/05/2024 3:07 PM EST Markel Borjas MD PATHOLOGY/CYTOLOGY ORDERABLES Performing Organization Address [facility] de Phone Number [facility] [place] [address] * Bone Marrow (06/05/2024 2:22 PM EST) Case Report Bone Marrow Patholog y Report ?Case: [id number] ? Authorizing Provider: ??Borjas, Markel R, MD ?Collected: ? 06/05/2024 1422 ? Ordering Location: ? [facility] ??Received: ?06/05/2024 1508 ? [facility] ? Pathologist: ? Boucher, Georges L, MD ? Specimens: ?? A) - Iliac Crest, Left ? B) - Iliac Crest, Left ? C) - Iliac Crest, Left ? 1:31 PM [facility] Integrated Results Bone marrow karyotype was normal, MDS FISH was negative for all markers tested, and HemeSeq showed no clinically significant alterations. These findings, combined with the bone marrow morphology and immunophenotyping studies, are supportive that the patients cytopenias are likely secondary in nature (a differential includes autoimmune/inflammato ry condition, medication/drug, or nutritional deficiency) and a myeloid neoplasm or lymphoproliferative disorder is less likely. Clinical correlation is recommended. 1:31 PM [facility] Addendum electronically signed by Georges Boucher MD on 06/22/2024 at 1:31 PM Final Diagnosis BONE MARROW (BLOOD FILM, ASPIRATE, TOUCH PREP, CORE & CLOT SECTIONS): 1. Normocellular bone marrow with maturing trilineage hematopoiesis. No overt dysplasia or increased blasts. 2. Ancillary studies pending. 1:31 PM [facility] Discussion The patient's histor [...] myeloid neoplasm. Final integrated report to follow. 1:31 PM [facility] Additional Studies Task ID IHC/Special Stains Result B1-3 Myeloperoxidase Highlights granulocytic precursors. B1-4 CD34 Highlights rare blasts (<5% of cells) B1-5 CD117 Highlights rare mast cells. B1-6 E-Cadherin Highlights normal erythroid precursors. B1-7 CD61 Highlights normal megakaryocytes. 11/21/202 4 1:31 PM [facility] Clinical Information Anemia, in patient with presumed hx of benign neutropenia 4 1:31 PM [facility] Gross Description A. Iliac Crest, Left. Number of Lavender (EDTA) tubes: 3 Total Volume of Lavender (EDTA) tubes: 8 ml Number of Green (NaHep) tubes: 1 Total Volume of Green (NaHep) tubes: 3 ml Spicule/Clot Section submitted? Present Tube to Biorepository? Present Processed by: Abbie Barrow Collected off the [facility] by: N/A B. Iliac Crest, Left. [...] in toto in 1 cassette labeled C1. [facility] 4 1:31 PM [facility] Disclaimer(s) Formalin-fixed, paraffin-embedded tissue [...] histopathological criteria and other diagnostic tests. 4 1:31 PM [facility] Bone Marrow Aspirate Adequacy: [...] Iron stores present, no ring sideroblasts. 4 1:31 PM [facility] Bone Marrow Biopsy and/or [...] Bone: Trabecular bone normal for age. 4 1:31 PM [facility] Bone Marrow Differential Band/Seg 34%; Lymph 8%; Trinity 0%; Eos 2%; Baso 1%; Metamyelocyte 13%; Myelocyte 9%; Promyelocyte 2%; Blast 1%; nRBC's 27%; Plasma cell 3% 4 1:31 PM [facility] Result Note Routine 1:31 PM [facility] Peripheral Blood Morphology RBCs: Mildly macrocytic anemia with rare target cells, ovalocytes. WBCs: Unremarkable. Platelets: Rare large platelet form present. 1:31 PM [facility] STRUCTURE OF LEFT ILIAC CREST / Unknown 06/05/2024 2:22 PM EST 06/05/2024 3:08 PM EST STRUCTURE OF LEFT ILIAC CREST / Unknown 06/05/2024 2:22 PM EST 06/05/2024 3:08 PM EST STRUCTURE OF LEFT ILIAC CREST / Unknown 06/05/2024 2:22 PM EST 06/05/2024 3:08 PM EST Markel Borjas MD PATHOLOGY/CYTOLOGY ORDERABLES [facility] [place] [address] * (ABNORMAL) CBC (with Diff) (06/05/2024 1:45 PM EST) [facility] White Blood Cell 3.06(L) 4.00 - 9.50 x10(3)/mc L 06/05/2024 2:38 PM [facility] Red Blood Cell 3.35(L) 4.00 - 5.21 x10(6)/mc L 06/05/2024 2:38 PM [facility] Hemoglobin 11.0(L) 11.7 - 15.5 g/dL 06/05/2024 2:38 PM [facility] Hematocrit 33.4(L) 35.7 - 45.8 % 06/05/2024 2:38 PM [facility] Mean Cell Volume 99.7(H) 82.6 - 94.4 fL 06/05/2024 2:38 PM [facility] Mean Cell Hemoglobin 32.8(H) 27.1 - 32.0 pg 06/05/2024 2:38 PM [facility] Mean Cell Hemoglobin Concentration 32.9 31.7 - 35.0 g/dL 06/05/2024 2:38 PM [facility] Platelet 151 145 - 357 x10(3)/mc L 06/05/2024 2:38 PM [facility] Mean Platelet Volume 8.9 7.6 - 12.9 fL 06/05/2024 2:38 PM [facility] RDW Standard Deviation 44.3 37.0 - 46.0 fL 06/05/2024 2:38 PM [facility] RDW coefficient of variation 12.0 11.5 - 14.1 % 06/05/2024 2:38 PM [facility] NRBC% auto 0.0 % 06/05/2024 2:38 PM [facility] NRBC Absolute <0.01 <0.01 x10(3)/mc L 06/05/2024 2:38 PM [facility] Neutrophil % 62.8 % 06/05/2024 2:38 PM [facility] Neutrophil Absolute (ANC) - Automated 1.92 1.70 - 6.10 x10(3)/mc L 06/05/2024 2:38 PM EST [facility] Lymph % 20.9 % 06/05/2024 2:38 PM [facility] Lymph Absolute 0.64(L) 0.90 - 3.20 x10(3)/mc L 06/05/2024 2:38 PM [facility] Monocyte % 15.0 % 06/05/2024 2:38 PM [facility] Monocyte Absolute 0.46 0.30 - 0.90 x10(3)/mc L 06/05/2024 2:38 PM [facility] Eos % 0.3 % 06/05/2024 2:38 PM [facility] Eos Absolute <0.04 0.00 - 0.40 x10(3)/mc L 06/05/2024 2:38 PM EST [facility] Basophil % 0.7 % 06/05/2024 2:38 PM [facility] Baso Absolute <0.04 0.00 - 0.10 x10(3)/mc L 06/05/2024 2:38 PM [facility] Immature Gran % 0.3 % 2:38 PM [facility] Immature Gran Absolute <0.04 0.00 - 0.04 x10(3)/mc L 06/05/2024 2:38 PM [facility] Blood VENOUS BLOOD SPECIMEN / Unknown Venipuncture / Unknown 06/05/2024 1:45 PM EST 06/05/2024 1:59 PM EST Markel Borjas MD HEMATOLOGY ORDERAB LES [facility] [place] [address] documented in this encounter Visit Diagnoses Not [...] RN) documented in this encounter Care Teams Distribution Center Administrator Relationship Specialty Start Date End Date Magdalena Acosta MD [address] [place] [address] PCP - General Family Medicine 02/05/23 documented as of this encounter
--- OUTSIDE RECORDS SUMMARY | 2024-06-22 14:10 | XMS_ITS | Encounter Summary ---
Author Organization [facility] Address [address] [place] [address] Care Team Providers Care Regeneration Operator Name Role Phone Ashley Chavez Primary Care Provider [phone] Encounter Details Date Type Department Care Team (Late st Contact Info) Description 10/30/2022 Lab Requisition [facility] Pathology & Laboratory Medicine - [address] [id number] Outr Resulting Lab, Provider Social History Tobacco [...] <12.3 <30.0 IU/mL 11/03/2022 13:08 EDT [facility] Comment: ? Negative: ??<30.0 IU/mL ? Borderline Positive: ??30.0 - 75.0 IU/mL ? Positive: ??>75.0 IU/mL Results were obtained with the [employer] QUANTA Lite dsDNA SC DOMO assay on the [employer] media DSX. Blood VENOUS BLOOD / Unknown 10/29/2022 14:00 EDT 10/30/2022 19:27 EDT Provider Outr Resulting Lab IMMUNOLOGY AND SEROL OGY ORDERABLES Final Result Performing Organization Address [facility] de Phone Number [facility] [address] [place] [address] * SM ([place]) ANTIBODY (10/29/2022 14:00 EDT) SM ([place]) Antibody 18.5 <20.0 Units 11/03/2022 14:26 EDT [facility] Comment: ? Negative: <20.0 [...] OGY ORDERABLES Final Result Performing Organization Address [facility] de Phone Number [facility] [address] [place] [address] documented in this encounter Visit Diagnoses Not on filedocumented in this encounter Care Teams Regeneration Operator Relationship Specialty Start Date End Date Ashley Chavez ARNP [address] [place] [address] PCP - General 07/11/10 documented as of this encounter
--- OUTSIDE RECORDS SUMMARY | 2024-06-22 14:10 | XMS_ITS | Referral Summary ---
Author Organization [facility] Address [address] [place] [address] Care Team Providers Care Stitcher Standard Machine Name Role Phone Ashley Chavez Primary Care Provider [phone] Social History Tobacco Use Types Packs/Day Years [...] file Plan of Treatment Not on file Insurance MEDICARE [facility] Care Teams Stitcher Standard Machine Relationship Specialty Start Date End Date Ashley Chavez ARNP [address] [place] [address] PCP - General 07/11/10
--- OUTSIDE RECORDS SUMMARY | 2024-06-22 14:10 | XMS_ITS | Encounter Summary ---
Author Organization [facility] [place] [address] Care Team Providers Care Embossed Or Impressed Lettering Painter Name Role Phone Magdalena Acosta MD Primary Care Provider [phone] Encounter Details Date Type Department Care Team (Late st Contact Info) Description 06/05/2024 2:00 PM EST - 06/05/2024 3:00 PM EST Surgery [facility] [place] [address] Markel Borjas MD [facility] [address] HEMATOLOGY [place] [address] ([facility]C MSURG) BONE MARROW BIOPSY AND ASPIRATION; [...] 5pm or on a weekend: Call the [facility] gear hobber operator at and ask for the physician personal carer covering for your doctor. Instructions following sedation [...] drainage occurs, [place] [address] [email or web address] [facility] documented in this encounter Medications at [...] Hematology [place] [address] Markel Borjas MD [facility] [address] HEMATOLOGY [place] [address] 11/02/2024 12:00 PM EDT Appointment [place] [address] 11/02/2024 1:00 PM EDT Office Visit [place] [address] Magdalena Peralta MD [facility] [place] [address] 03/01/2025 4:15 PM EDT Office Visit Dermatology at [place] [address] [place] [address] Marek Bonilla MD [address] [facility], [place] [address] documented as of this encounter Procedures Procedure [...] EST Diagnostic Bone Marrow Biopsies & Aspirations (78871) 06/05/2024 2:03 PM EST Anemia, in pt with longstanding neutropenia CBC (WITH DIFF) Routine 06/05/2024 1:45 PM EST ([facility]C MSURG) BONE MARROW BIOPSY AND ASPIRATION; DIAGNOSTIC Routine 06/05/2024 1:07 PM EST documented in this encounter Results * Myelodysplastic Syndrome (MDS) FISH Panel (06/05/2024 2:22 PM EST) Specimen Condition adequate 06/08/2024 11:23 PM [facility] Indication for Study Anemia, in patient with presumed hx of benign neutropenia 06/08/2024 11:23 PM [facility] FISH Panel Summary NEGATIVE for all FISH Panel markers 06/08/2024 11:23 PM [facility] FISH Results 5q deletion, monosomy 5, 7q deletion, monosomy 7, trisomy 8, and 20q deletion NOT DETECTED. 06/08/2024 11:23 PM [facility] ISCN Nomenclature nuc josselin(D5S23,EGR1)x2[ 200],(D7Z1,G0J608) x2[200],(D8Z2,D20S 108)x2[200] 06/08/2024 11:23 PM [facility] Culture Type Direct [place] 06/08/20 11:23 PM [facility] FISH Method Interphase 06/08/2024 11:23 PM [facility] Interpretation Interphase FISH analysis [...] analysis using probes for CEP7/D7Z1/7p11.1q1 1.1 and W5P249/7q31 loci ([employer] shows 1.5% and 0% of 200 cells with 7q signal deletion (7q-) and chromosome 7 signal loss (monosomy 7) patterns, respectively. These are within acceptable reference limits (7q deletion: 0-6.3%; monosomy 7: 0-4.4%). Thus, there is no evidence for 7q deletion and monosomy 7. Interphase FISH analysis using probes for CEP8/D8Z2/8p11.1q1 1.1 and O26V362/20q12 loci ([employer] shows 0% and 2.5% of 200 cells with a chromosome 8 signal gain and 20q signal deletion patterns, respectively. These are within acceptable reference limits (trisomy 8: 0-5.1%; 20q deletion: 0-6.3%). Thus, there is no evidence for trisomy 8 and 20q deletion. Correlation with clinical and pathological studies is suggested. 06/08/2024 11:23 PM [facility] Technical Methods FISH is [...] The FISH probes are directly-labeled by the informatics physician liaison ([employer] or [email or web address] with either a spectrum orange, green, or aqua fluorochrome. Cells are stained with DAPI ([employer]), visualized through fluorescence microscopy, and images captured on the CytoVision software ([employer]). Results are reported based on an International System for Human Cytogenomic Nomenclature. 06/08/2024 11:23 PM EST [facility] Limitations & Disclaimers The FISH test was developed and its performance characteristics were determined by the [facility] ([facility] Cytogenetics Laboratory as required by The Clinical [...] verified the test's accuracy and precision. The [facility] Cytogenetics Laboratory is certified under the CLIA'88 as qualified to perform high complexity clinical laboratory testing. Chromosome alterations outside the regions complementary to these DNA FISH probes will not be detected. 06/08/2024 11:23 PM EST [facility] Sign-out by Professional component performed by Lizette Bullock, Ph.D., [facility], [facility] [address], [place], [place] (CLIA #: [id number]). 06/08/2024 11:23 PM EST [facility] Bone Marrow Non Blood Collection / Unknown 06/05/2024 2:22 PM EST 06/05/2024 3:07 PM EST Georges Boucher MD MOLECULAR ORDERABLES [facility] [place] [address] * Chromosome Analysis, Acquired ([facility]) (06/05/2024 2:22 PM EST) Chromosome, Leukemia/Lymph ananya ([facility]) See Scanned Result 06/14/2024 6:28 PM EST [facility]F [facility] Specimen Condition ([facility]) 06/14/2024 6:28 PM EST [facility]F [facility] Bone Marrow Non Blood Collection / Unknown 06/05/2024 2:22 PM EST 06/05/2024 3:07 PM EST Georges Boucher MD LAB SEND OUT ORDERAB LES REF [facility] [address] [place] [address], [facility] * DH HemeSeq (Bone Marrow) (06/05/2024 2:22 PM EST) NGS Report Status Normal 06/13/2024 10:21 AM EST [facility] Bone Marrow Non Blood Collection / Unknown 06/05/2024 2:22 PM EST 06/05/2024 3:07 PM EST Georges Boucher MD MOLECULAR ORDERABLES [facility] [place] [address] * Immunophenotyping Flow Cytometry (06/05/2024 2:22 PM EST) Pathologist [facility] Final Diagnosis - No monotypic B-cell population, no monotypic plasma cell population, no phenotypically abnormal T-cell population or increase in blasts is detected. 06/06/2024 2:08 PM [facility] Signing Pathologist This result has been reviewed by Georges Boucher MD on 06/06/24 at 2:08 PM. 06/06/2024 2:08 PM [facility] Interpretation CD19+ B-cells show [...] identified. 06/06/2024 2:08 PM [facility] Lymphocyte % 4.7 % 06/06/2024 2:08 PM [facility] Monocyte % 3.0 % 06/06/2024 2:08 PM [facility] Granulocyte % 76.0 % 06/06/2024 2:08 PM [facility] CD45 DIM % 0.9 % 06/06/2024 2:08 PM [facility] CD38 Bright/CD138+ 0.2 % 06/06/2024 2:08 PM [facility] CD3+ % 70.0 % 06/06/2024 2:08 PM [facility] CD19+ % 17.0 % 06/06/2024 2:08 PM [facility] CD56+ % 12.0 % 06/06/2024 2:08 PM [facility] B-Cell:T-Cell Ratio 0.2 06/06/2024 2:08 PM [facility] [place]:Lambda Ratio 1.8 06/06/2024 2:08 PM [facility] CD4:CD8 Ratio 1.6 06/06/2024 2:08 PM [facility] Specimen Processing Cells for immunophenotypic analysis were derived from bone marrow. The following markers were assessed: CD2, CD3, CD4, CD5, CD7, CD8, CD10, CD19, CD20, CD38, CD45, CD56, CD138, kappa light chain, (c)kappa light chain, lambda light chain, (c)lambda light chain,CD13, CD14, CD34, CD45, CD117, and HLA-DR. 06/06/2024 2:08 PM [facility] Disclaimer Flow analysis is an ancillary study. A definite diagnosis requires correlation with the morphologic features of this process and if necessary, correlation with other ancillary studies like immunohistochemist ry, enzyme cytochemistry and/or cyto/molecular genetics. This test was developed and its performance characteristics determined by the Clinical Flow Cytometry Laboratory at [facility]. It has not been cleared or approved [...] clinical laboratory testing. 06/06/2024 2:08 PM EST [facility] Bone Marrow Non Blood Collection / Unknown 06/05/2024 2:22 PM EST 06/05/2024 3:07 PM EST Georges Boucher MD HEMATOLOGY ORDERABLE S Performing Organization Address [facility]/ZIP Co de Phone Number [facility] [place] [address] * BM HOLD CYTOGENETICS/FISH (06/05/2024 2:22 PM EST) Bone Marrow Non Blood Collection / Unknown 06/05/2024 2:22 PM EST 06/05/2024 3:07 PM EST Narrative [facility] - 06/06/2024 10:47 AM EST ~3ml Markel Borjas MD PATHOLOGY/CYTOLOGY ORDERABLES Performing Organization Address [facility] Co de Phone Number [facility] [place] [address] * BM HOLD FLOW/MOLECULAR (06/05/2024 2:22 PM EST) Bone Marrow Non Blood Collection / Unknown 06/05/2024 2:22 PM EST 06/05/2024 3:07 PM EST Markel Borjas MD PATHOLOGY/CYTOLOGY ORDERABLES Performing Organization Address [facility] Co de Phone Number [facility] [place] [address] * Bone Marrow (06/05/2024 2:22 PM EST) Case Report Bone Marrow Patholog y Report ?Case: [id number] ? Authorizing Provider: ??Indio, Markel R, MD ?Collected: ? 06/05/2024 1422 ? [facility]ing [facility] ??Received: ?06/05/2024 1508 ? [facility] ? Pathologist: ? Georges Boucher, MD ? Specimens: ?? A) - Iliac Crest, Left ? B) - Iliac Crest, Left ? C) - Iliac Crest, Left ? 4 1:31 PM [facility] Integrated Results Bone marrow [...] likely. Clinical correlation is recommended. 1:31 PM [facility] Addendum electronically signed by Georges Boucher MD on 06/22/2024 at 1:31 PM Final Diagnosis BONE MARROW (BLOOD FILM, ASPIRATE, TOUCH PREP, CORE & CLOT SECTIONS): 1. Normocellular bone marrow with maturing trilineage hematopoiesis. No overt dysplasia or increased blasts. 2. Ancillary studies pending. 1:31 PM [facility] Discussion The patient's histor [...] Final integrated report to follow. 1:31 PM [facility] Additional Studies Task ID IHC/Special Stains Result B1-3 Myeloperoxidase Highlights granulocytic precursors. B1-4 CD34 Highlights rare blasts (<5% of cells) B1-5 CD117 Highlights rare mast cells. B1-6 E-Cadherin Highlights normal erythroid precursors. B1-7 CD61 Highlights normal megakaryocytes. 4 1:31 PM [facility] Clinical Information Anemia, in patient with presumed hx of benign neutropenia 4 1:31 PM [facility] Gross Description A. Iliac [...] toto in 1 cassette labeled C1. [facility] 4 1:31 PM [facility] Disclaimer(s) Formalin-fixed, paraffin-embedded tissue [...] and other diagnostic tests. 4 1:31 PM [facility] Bone Marrow Aspirate Adequacy: [...] present, no ring sideroblasts. 4 1:31 PM [facility] Bone Marrow Biopsy and/or [...] bone normal for age. 4 1:31 PM [facility] Bone Marrow Differential Band/Seg 34%; Lymph 8%; [place] 0%; Eos 2%; Baso 1%; Metamyelocyte 13%; Myelocyte 9%; Promyelocyte 2%; Blast 1%; nRBC's 27%; Plasma cell 3% 4 1:31 PM [facility] Result Note Routine 4 1:31 PM [facility] Peripheral Blood Morphology RBCs: Mildly macrocytic anemia with rare target cells, ovalocytes. WBCs: Unremarkable. Platelets: Rare large platelet form present. 4 1:31 PM [facility] STRUCTURE OF LEFT ILIAC CREST / Unknown 06/05/2024 2:22 PM EST 06/05/2024 3:08 PM EST STRUCTURE OF LEFT ILIAC CREST / Unknown 06/05/2024 2:22 PM EST 06/05/2024 3:08 PM EST STRUCTURE OF LEFT ILIAC CREST / Unknown 06/05/2024 2:22 PM EST 06/05/2024 3:08 PM EST Markel Borjas MD PATHOLOGY/CYTOLOGY ORDERABLES [facility] [place] [address] * (ABNORMAL) CBC (with Diff) (06/05/2024 1:45 PM EST) White Blood Cell 3.06(L) 4.00 - 9.50 x10(3)/mc L 06/05/2024 2:38 PM [facility] Red Blood Cell 3.35(L) 4.00 - 5.21 x10(6)/mc L 06/05/2024 2:38 PM [facility] Hemoglobin 11.0(L) 11.7 - 15.5 g/dL 06/05/2024 2:38 PM [facility] Hematocrit 33.4(L) 35.7 - 45.8 % 06/05/2024 2:38 PM [facility] Mean Cell Volume 99.7(H) 82.6 - 94.4 fL 06/05/2024 2:38 PM [facility] Mean Cell Hemoglobin 32.8(H) 27.1 - 32.0 pg 06/05/2024 2:38 PM [facility] Mean Cell Hemoglobin Concentration 32.9 31.7 - 35.0 g/dL 06/05/2024 2:38 PM [facility] Platelet 151 145 - 357 x10(3)/mc L 06/05/2024 2:38 PM [facility] Mean Platelet Volume 8.9 7.6 - 12.9 fL 06/05/2024 2:38 PM [facility] RDW Standard Deviation 44.3 37.0 - 46.0 fL 06/05/2024 2:38 PM [facility] RDW coefficient of variation 12.0 11.5 - 14.1 % 06/05/2024 2:38 PM [facility] NRBC% auto 0.0 % 06/05/2024 2:38 PM [facility] NRBC Absolute <0.01 <0.01 x10(3)/mc L 06/05/2024 2:38 PM [facility] Neutrophil % 62.8 % 06/05/2024 2:38 PM [facility] Neutrophil Absolute (ANC) - Automated 1.92 1.70 - 6.10 x10(3)/mc L 06/05/2024 2:38 PM [facility] Lymph % 20.9 % 06/05/2024 2:38 PM [facility] Lymph Absolute 0.64(L) 0.90 - 3.20 x10(3)/mc L 06/05/2024 2:38 PM EST [facility] Monocyte % 15.0 % 06/05/2024 2:38 PM [facility] Monocyte Absolute 0.46 0.30 - 0.90 x10(3)/mc L 06/05/2024 2:38 PM [facility] Eos % 0.3 % 06/05/2024 2:38 PM [facility] Eos Absolute <0.04 0.00 - 0.40 x10(3)/mc L 06/05/2024 2:38 PM EST [facility] Basophil % 0.7 % 06/05/2024 2:38 PM [facility] Baso Absolute <0.04 0.00 - 0.10 x10(3)/mc L 06/05/2024 2:38 PM EST [facility] Immature Gran % 0.3 % 2:38 PM [facility] Immature Gran Absolute <0.04 0.00 - 0.04 x10(3)/mc L 06/05/2024 2:38 PM [facility] Blood VENOUS BLOOD SPECIMEN / Unknown Venipuncture / Unknown 06/05/2024 1:45 PM EST 06/05/2024 1:59 PM EST Markel Borjas MD HEMATOLOGY ORDERAB LES [facility] [place] [address] documented in this encounter Visit Diagnoses Not [...] RN) documented in this encounter Care Teams Embossed Or Impressed Lettering Painter Relationship Specialty Start Date End Date Magdalena Acosta MD [address] [place] [address] PCP - General Family Medicine 02/05/23 documented as of this encounter
--- OUTSIDE RECORDS SUMMARY | 2024-06-22 14:10 | XMS_ITS | Encounter Summary ---
Author Organization [facility] Address [address] [place] [address] Care Team Providers Care Production Line Assembler Name Role Phone Ashley Chavez Primary Care Provider [phone] Encounter Details Date Type Department Care Team (Late st Contact Info) Description 12/17/2021 Lab Requisition [facility] Pathology & Laboratory Medicine - [address] [address] Outr Resulting Lab, Provider Social History Tobacco [...] Ab Negative Negative 12/18/2021 10:37 EDT [facility] Blood VENOUS BLOOD / Unknown 12/17/2021 13:30 EDT 12/17/2021 21:32 EDT us Provider Outr Resulting Lab IMMUNOLOGY AND SEROL OGY ORDERABLES Final Result Performing Organization Address [facility] Co de Phone Number [facility] [address] [place] [address] * (ABNORMAL) ANTI NUCLEAR AB (FRANCISCO), IFA (12/17/2021 13:30 EDT) FRANCISCO Interpretation Positive(A) Negative 12/18/2021 16:06 EDT [facility] Comment: For titers [...] 1 1:1280 Speckled 12/18/2021 16:06 EDT [facility] Blood VENOUS BLOOD / Unknown 12/17/2021 13:30 EDT 12/17/2021 21:32 EDT Narrative [facility] - 12/18/2021 16:06 EDT Results were obtained with the INOVA NOVA Lite HEp-2 FRANCISCO Kit by indirect immunofluorescence. us Provider Outr Resulting Lab IMMUNOLOGY AND SEROL OGY ORDERABLES Final Result Performing Organization Address [facility] Co de Phone Number [facility] [address] [place] [address] documented in this encounter Visit Diagnoses Not on filedocumented in this encounter Care Teams Production Line Assembler Relationship Specialty Start Date End Date Ashley Chavez ARNP [address] [place], [place] [id number] PCP - General 07/11/10 documented as of this encounter
--- OUTSIDE RECORDS SUMMARY | 2024-06-22 14:10 | XMS_ITS | Encounter Summary ---
Author Organization [facility] Address [address] [place] [address] Care Team Providers Care Tool Lathe Operator Name Role Phone Scott Ashley WILLIAM Primary Care Provider [phone] Encounter Details Date Type Department Care Team (Late st Contact Info) Description 11/10/2013 Results Only [facility] [phone] Jeni Laird, MASON LINER [address] [place], [place] [id number] Social History Tobacco Use Types Packs/Day Years [...] ? PURNIMA THACKER ? Accession #: ? [id number] : ? 1955 (Age: 58) ??F ?Collect Date: ? 11/10/2013 Location: ? [facility] ? Receive Date: ? 11/14/2013 Provider: ?JENI LAIRD MASON LINER Copy to: ? Specimen/Source: ?Pap Test, Endocervix, [...] PAUL ARELLANO 11/10/2013 11/14/2013 us Jeni Laird MASON LINER PATHOLOGY ORDERABLES Magy morgan Result PAUL ARELLANO [address] [place] [address] documented in this encounter Visit Diagnoses Not on filedocumented in this encounter Care Teams Tool Lathe Operator Relationship Specialty Start Date End Date Ashley Chavez ARNP [address] [place] [address] PCP - General 07/11/10 documented as of this encounter
--- OUTSIDE RECORDS SUMMARY | 2024-06-22 14:10 | XMS_ITS | Encounter Summary ---
Author Organization [facility] Address [facility] [place] [address] Care Team Providers Care 3D Artist Name Role Phone Magdalena Acosta MD Primary Care Provider Encounter Details Date Type Department Care Team (Late st Contact Info) Description 06/01/2024 10:00 AM EDT Office [place] [address] Magdalena Peralta MD [facility] [place] [address] Mixed connective tissue disease Social History Tobacco [...] through Care Everywhere. * Knee Arthritis: Exercises (Polish) documented in this encounter Progress Notes * [...] 1:5120 speckled; VIC negative; Myositis panel with KETTLE SKIMMER ab 149.1 (positive); Anti U1RNP IgG 119; [...] that osteoporosis is not an indication for terminologist systemic steroid therapy as it is not [...] Dr. Roma Peralta MD Rheumatology Fellow Pager: [phone] * Kuldeep Brandon MD - 06/01/2024 10:00 [...] and therapeutic plans. Kuldeep Brandon MD Staff Cyberathlete documented in this encounter Plan of Treatment Upcoming Encounters Date Type Department Care Team (Late st Contact Info) Description 06/23/2024 2:00 PM EST Office Visit Hematology [place] [address] Markel Borjas MD [facility] [address] [place] [address] 11/02/2024 12:00 PM EDT [place]ointment [place] [address] 11/02/2024 1:00 PM EDT Office [place] [address] Magdalena Peralta MD [facility] [place] [address] 03/01/2025 4:15 PM EDT Office Visit Dermatology at [place] [address] [place] [phone] Marek Bonilla MD [address] [place] [address] Scheduled Orders Name Type Priority Associated Diagnoses Orde r Schedule Common Pulmonary Function Test PFT Routine Mixed connective tissue disease Expected: 10/31/2024, Expires: 06/01/2025 documented as of this encounter Visit Diagnoses Diagnosis Mixed connective tissue disease Other specified diffuse disease of connective tissue documented in this encounter Care Teams 3D Artist Relationship Specialty Start Date End Date Magdalena Acosta MD [address] [place] [address] PCP - General Family Medicine 02/05/23 documented as of this encounter
--- OUTSIDE RECORDS SUMMARY | 2024-06-22 14:10 | XMS_ITS | Encounter Summary ---
Author Organization [facility] Address [address] [place] [address] Care Team Providers Care Catering Server Name Role Phone Unavailable Primary Care Provider Unavailabl e Encounter Details Date Type Department Care Team (Late st Contact Info) Description 03/24/2007 11:06 EDT - 03/24/2007 11:59 EDT Hospital Encounter [facility] - Other [address] [place] [address] Ashley Chavez ARNP [address] [place] [address] Discharge Disposition: Home or Self Care Social [...]
--- OUTSIDE RECORDS SUMMARY | 2024-06-22 14:10 | XMS_ITS | Encounter Summary ---
Author Organization [facility] Address [address] [place] [address] Care Team Providers Care Munitions Worker Name Role Phone Scott, Ashley WILLIAM Primary Care Provider [phone] Encounter Details Date Type Department Care Team (Late st Contact Info) Description 03/21/2024 Lab Requisition [facility] Pathology & Laboratory Medicine - [address] [address] Consuelo Guerrero, DO [address] [place], [place] [address] Encounter for other general examination Social History [...] BANK TESTS Final Result Performing Organization Address City/State/[facility] Co de Phone Number [facility] [address] [place] [address] documented in this encounter Visit Diagnoses Diagnosis Encounter for other general examination documented in this encounter Care Teams Munitions Worker Relationship Specialty Start Date End Date Ashley Chavez ARNP [address] [place] [address] PCP - General 07/11/10 documented as of this encounter
--- OUTSIDE RECORDS SUMMARY | 2024-06-22 14:10 | XMS_ITS | Encounter Summary ---
Author Organization [facility] [place] [address] Care Team Providers Care Sleeve Setter Name Role Phone Magdalena Acosta MD Primary Care Provider [phone] Encounter Details Date Type Department Care Team (Late st Contact Info) Description 05/18/2024 Interpretation Only [address] [address] Magdalena Acosta MD [address] [place], [place] [id number] Social History Tobacco Use Types Packs/Day Years [...] EST Office Visit Hematology [place] [address] Markel Borjas MD [address] [facility] [facility] [address] [place] [address] 11/02/2024 12:00 PM EDT Appointment [place] [address] 11/02/2024 1:00 PM EDT Office [place] [address] Magdalena Peralta MD [facility] [place] [address] 03/01/2025 4:15 PM EDT Office Visit Dermatology at [place] [address] [place] [id number] Marek Bonilla MD [address], [place] [address] documented as of this encounter Procedures Procedure Name Priority Date/Time Associated Diagnosis Comments MAMMO SCREENING CAD BILATERAL (CH) Routine 05/18/2024 11:21 AM EDT documented in this encounter Results * MAMMO SCREENING CAD BILATERAL (CH) (05/18/2024 11:21 AM EDT) PT CLASS O RAD ADMITDTTM [id number] RAD PT RAD INFO [id number]^Dave ^Magdalena RAD EXAM DESC [facility]^MG Mammo Digital Screening Bilateral.^RIS RAD WORKSTATION [...] have questions please contact the health senior care specialist that requested your imaging first. ? Electronically signed by: Rocael Villatoro MD, [facility] ([phone]), at 05/18/2024 3:[address] ??[address] Narrative 05/18/2024 3:05 PM EDT EXAMINATION: MG [...] who have questions please contactthe health senior care specialist that [place] [address] Magdalena Acosta MD [facility] documented in this encounter Visit Diagnoses Not on filedocumented in this encounter Care Teams Sleeve Setter Relationship Specialty Start Date End Date Magdalena Acosta MD [address] [place] [address] PCP - General Family Medicine 02/05/23 documented as of this encounter
--- OUTSIDE RECORDS SUMMARY | 2024-06-22 14:10 | XMS_ITS | Encounter Summary ---
Author Organization [facility] Address [address] [place] [address] Care Team Providers Care Risk Professional Name Role Phone Ashley Chavez Primary Care Provider [phone] Encounter Details Date Type Department Care Team (Late st Contact Info) Description 04/29/2022 Lab Requisition [facility] Pathology & Laboratory Medicine - [address] [address] Outr Resulting Lab, Provider Social History Tobacco [...] Antibody 1.6 <20.0 Units 04/30/2022 12:23 EDT [facility] Comment: ? Negative: [...] ORDERABLES Final Result Performing Organization Address [facility] de Phone Number [facility] [address] [place] [address] * SSA ANTIBODIES BY DOMO (04/29/2022 7:51 EDT) SSA Antibody 1.5 <20.0 Units 04/30/2022 12:22 EDT [facility] Comment: ? Negative: [...] ORDERABLES Final Result Performing Organization Address [facility] de Phone Number [facility] [address] [place] [address] documented in this encounter Visit Diagnoses Not on filedocumented in this encounter Care Teams Risk Professional Relationship Specialty Start Date End Date Ashley Chavez ARNP [address] [place] [address] PCP - General 07/11/10 documented as of this encounter
--- OUTSIDE RECORDS SUMMARY | 2024-06-22 14:10 | XMS_ITS | Encounter Summary ---
Author Organization [facility] Address [address] [place] [address] Care Team Providers Care Snorkelling Instructor Name Role Phone Nicole Chavezi WILLIAM Primary Care Provider [phone] Encounter Details Date Type Department Care Team (Late st Contact Info) Description 06/23/2016 Results Only [facility] [phone] Matthew Acevedo, DO [address] [address] Social History Tobacco Use Types [...] ? PURNIMA THACKER ? Accession #: ? [id number] : ? 1955 (Age: 60) ??F ?Collect Date: ? 06/23/2016 Location: ? [facility] ? Receive Date: ? 06/24/2016 Provider: ? MATTHEW ACEVEDO DO Copy to: ?WINTER HANKINS MANAGER CARE MANAGEMENT MARIO ALBERTO GATES MD ? INTERPRETATION: Normal [...] ??400 ?? KARYOTYPE: 46,XX[25] End of Report [facility] 06/23/2016 06/24/2016 Matthew Acevedo DO PATHOLOGY ORDERABLES Fi nal Result [facility] [address] [place] [address] * FLOW CYTOMETRY (06/23/2016 0:00 EST) Pathology Report: FLOW CYTOMETRY REPORT Reports generated via electronic interface contain original data; however they are lacking the format of the original report. Caution should be taken when reading/interpreting unformatted reports. Name: ? PURNIMA THACKER ? Accession #: ? [id number] : ? 1955 (Age: 60) ??F ?Collect Date: ? 06/23/2016 00:00 Location: ? [facility] ? Receive Date: ? 06/24/2016 08:00 Provider: ?MATTHEW KRISTINA DO Copy to: ?WINTER HANKINS MANAGER CARE MANAGEMENT MARIO ALBERTO RAMOS MD ? FINAL IMMUNOPHENOTYPIC INTERPRETATION: ? Bone marrow, flow cytometric analysis: -No immunophenotypic evidence of a clonal cell population. ??See comment. ? COMMENT: The results of flow cytometry show no immunophenotypic evidence of involvement by a clonal lymphoproliferative or myeloproliferative disorder. ??Correlation of these findings with morphologic and clinical data is essential. ??Please refer to pathology report number [id number] for morphologic details. ? Document reviewed and [...] the Department of Pathology and Laboratory Medicine, [place], [place] ??It has not been cleared or [...] clinical laboratory testing. End of Report ?? [facility] 06/23/2016 06/24/2016 8:0 0 EST Matthew Acevedo DO PATHOLOGY ORDERABLES Fi nal Result Performing Organization Address City/State/[facility] Co de Phone Number [facility] [address] [place] [address] * BONE MARROW/HEMPATH CONSULT (06/23/2016 0:00 EST) Pathology Report: BONE MARROW REPORT Reports generated via electronic interface contain original data; however they are lacking the format of the original report. Caution should be taken when reading/interpreting unformatted reports. Name: ? ANDREW PURNIMA Magalie ? Accession #: ? [id number] : ? 1955 (Age: 60) ??F ?Collect Date: ? 06/23/2016 Location: ? [facility] ? Receive Date: ? 06/24/2016 Provider: ? MATTHEW ACEVEDO DO Copy to: ?WINTER HANKINS MANAGER CARE MANAGEMENT MARIO ALBERTO RAMOS MD ? DIAGNOSIS: Peripheral [...] #1: Aggregate biopsy length: 8 mm with sand mill operator core sand trabeculae of lamellar bone, cellular bone marrow, [...] SEE ABOVE DISCUSSION Lambda (polyclonal, Dako) ??(B1): [place] (polyclonal, Dako) ??(B1): Biopsy (decalcified) #2: Aggregate biopsy length: 8 mm with sand mill operator core sand trabeculae of lamellar bone, cellular bone marrow, [...] (M115, Leica) ??(B2): Lambda (polyclonal, Dako) ??(B2): [place] (polyclonal, Dako) ??(B2): NOTE: ??One or more [...] ? 1% Blasts ?1% Special Studies Cytogenetics ([id number]): Pending. Flow Cytometry ([id number]): No immunophenotypic evidence of a clonal cell population. ? End of Report [facility] 06/23/2016 06/24/2016 us Matthew Acevedo DO PATHOLOGY ORDERABLES Fi nal Result [facility] [address] [place] [address] documented in this encounter Visit Diagnoses Not on filedocumented in this encounter Care Teams Snorkelling Instructor Relationship Specialty Start Date End Date Ashley Chavez ARNP [address] [place] [address] PCP - General 07/11/10 documented as of this encounter
--- OUTSIDE RECORDS SUMMARY | 2024-06-22 14:10 | XMS_ITS | Encounter Summary ---
Author Organization [facility] Address [address] [place] [address] Care Team Providers Care Hydrocrane Operator Name Role Phone Scott Ashley WILLIAM Primary Care Provider [phone] Encounter Details Date Type Department Care Team (Late st Contact Info) Description 03/22/2024 Lab Requisition [facility] Pathology & Laboratory Medicine - [address] [address] Consuelo Guerrero, DO [address] [place], [place] [address] Diaphragmatic hernia without obstruction or gangrene; Anemia, [...] explore management options, if applicable. 03/24/2024 10:36 [facility] Final Diagnosis A. JEJUNUM, PROXIMAL, [...] 03/22/2024 9:36 03/24/2024 10:36 EDT [facility] Resident/Estuardo w: Luis Felipe Bragg DO 03/24/2024 10:36 T [facility] Performing Lab [facility] 10:36 T [facility] Scanned Images 03/24/2024 10:36 T [facility] Tissue POLYP OF COLON [...] Guerrero DO PATHOLOGY ORDERABLES Final Re sult [facility] [address] [place] [address] documented in this encounter Visit Diagnoses Diagnosis Diaphragmatic hernia without obstruction or gangrene Diaphragmatic hernia without mention of obstruction or gangrene Anemia, unspecified documented in this encounter Care Teams Hydrocrane Operator Relationship Specialty Start Date End Date Ashley Chavez ARNP [address] [place] [address] PCP - General 07/11/10 documented as of this encounter
--- OUTSIDE RECORDS SUMMARY | 2024-06-22 14:10 | XMS_ITS | Encounter Summary ---
Author Organization [facility] Address [address] [place] [address] Care Team Providers Care C S S Representative Name Role Phone Ashley Chavez Primary Care Provider [phone] Encounter Details Date Type Department Care Team (Late st Contact Info) Description 03/21/2024 Lab Requisition [facility] Pathology & Laboratory Medicine - [address] [id number] Outr Resulting Lab, Provider Social History Tobacco [...] 32 - 197 mg/dL 03/22/2024 10:[address] [facility] Blood VENOUS BLOOD / Unknown 03/21/2024 13:00 EDT 03/21/2024 21:50 EDT us Provider Outr Resulting Lab CHEMISTRY & BLOOD GA S ORDERABLES Final Result Performing Organization Address [facility]/State/ZIP Co de Phone Number [facility] [address] [place] [address] documented in this encounter Visit Diagnoses Not on filedocumented in this encounter Care Teams C S S Representative Relationship Specialty Start Date End Date Ashley Chavez ARNP [address] [place] [address] PCP - General 07/11/10 documented as of this encounter
--- OUTSIDE RECORDS SUMMARY | 2024-06-22 14:10 | XMS_ITS | Encounter Summary ---
Author Organization [facility] Address [facility] [place] [address] Care Team Providers Care Extractor Tender Raw Stock Name Role Phone Magdalena Acosta MD Primary Care Provider [phone] Encounter Details Date Type Department Care Team [...] EST Office Visit [place] [address] Markel Borjas MD [facility] [address] [place] [address] 11/02/2024 12:00 PM EDT [place] [address] 11/02/2024 1:00 PM EDT Office [place] [address] Magdalena Peralta MD [facility] [place] [address] 03/01/2025 4:15 PM EDT Office Visit Dermatology at [place] [address] [facility] [place] [phone] Marek Bonilla MD [address] [place] [address] documented as of this encounter Visit Diagnoses Not on filedocumented in this encounter Care Teams Extractor Tender Raw Stock Relationship Specialty Start Date End Date Magdalena Acosta MD [address] [place] [address] PCP - General Family Medicine 02/05/23 documented as of this encounter
--- OUTSIDE RECORDS SUMMARY | 2024-06-22 14:10 | XMS_ITS | Encounter Summary ---
Author Organization [facility] Address [address] [place] [address] Care Team Providers Care Gem Technician Name Role Phone Ashley Chavez Primary Care Provider [phone] Encounter Details Date Type Department Care Team (Late st Contact Info) Description 05/12/2022 Lab Requisition [facility] Pathology & Laboratory Medicine - [address] [address] Outr Resulting Lab, Provider Social History Tobacco [...] PHONE RESULT Final Result Performing Organization Address [facility] Co de Phone Number [facility] [address] [place] [address] * (ABNORMAL) HOMOCYSTEINE (05/12/2022 14:32 EDT) Homocysteine [...] S ORDERABLES Final Result Performing Organization Address [facility] Co de Phone Number [facility] [address] [place] [address] * HAPTOGLOBIN (05/12/2022 14:32 EDT) Haptoglobin 138 32 - 197 mg/dL 05/13/2022 9:55 EDT [facility] Blood VENOUS BLOOD / Unknown 05/12/2022 14:32 EDT 05/12/2022 21:36 EDT us Provider Outr Resulting Lab CHEMISTRY & BLOOD GA S ORDERABLES Final Result Performing Organization Address [facility]/State/ZIP Co de Phone Number [facility] [address] [place] [address] * (ABNORMAL) ANTI NUCLEAR AB (FRANCISCO), IFA [...] IMMUNOLOGY AND SEROL OGY ORDERABLES Final Result [facility] [address] [place] [address] documented in this encounter Visit Diagnoses Not on filedocumented in this encounter Care Teams Gem Technician Relationship Specialty Start Date End Date Ashley Chavez ARNP [facility] [place] [address] PCP - General 07/11/10 documented as of this encounter
--- OUTSIDE RECORDS SUMMARY | 2024-06-22 14:10 | XMS_ITS | Encounter Summary ---
Author Organization [facility] Address [address] [place] [address] Care Team Providers Care Prescriptionist Name Role Phone Unavailable Primary Care Provider Unavailabl e Encounter Details Date Type Department Care Team (Late st Contact Info) Description 07/08/2010 Results Only [facility] Non-Invasive Cardiology - [facility] [address] [place] [address] Ashley Chavez, WILLIAM [address] [place] [address] Social History Tobacco Use Types Packs/Day Years [...] ? PURNIMA THACKER ? Accession #: ? [id number] ? : ? 1955 (Age: 54) ??F [...] ORDERABLES Final Res ult PAUL ARELLANO [address] [place] [address] documented in this encounter Visit Diagnoses Not on filedocumented in this encounter
--- OUTSIDE RECORDS SUMMARY | 2024-06-22 14:10 | XMS_ITS | Clinical Summary ---
Author Organization [facility] Address [facility] [place] [address] Care Team Providers Care Freight Inspector Name Role Phone Magdalena Acosta MD [...] fraction 05/08/2023 Mild coronary artery disease by [facility] 11/09/2022 Heart failure with reduced e [...] 3:00 PM EST Surgery [facility] [place] [address] Markel Borjas MD ([facility]) BONE MARROW BIOPSY AND ASPIRATION; DIAGNOSTIC (WRVU 1.44) 06/05/2024 1:04 PM EST - 06/05/2024 3:08 PM EST Hospital Encounter Outpatient [place] [address] Markel Borjas MD Discharge Disposition: Home 06/01/2024 10:00 AM EDT Office Visit Rheumatology at [place] [phone] Magdalena Peralta MD Mixed connective tissue disease 05/31/2024 Travel 05/24/2024 Refill Internal Medicine at [place] [phone] Magdalena Peralta MD 05/18/2024 Interpretation Only [address] [address] Magdalena Acosta MD 05/18/2024 Interpretation Only [address] [address] Magdalena Acosta MD 05/12/2024 10:00 AM EDT Office Visit Hematology [place] [address] Markel Borjas MD Chronic idiopathic neutropenia 05/12/2024 9:00 AM EDT Laboratory Appointment Lab at [facility] Hematology Oncology [address] [place], [place] [phone] S/P TAVR (transcatheter aortic valve replacement); Chronic idiopathic neutropenia 05/12/2024 Travel 05/10/2024 Travel 04/11/2024 Transcribe Orders eDH Incoming Referrals [phone] Consuelo Guererro, Anemia, unspecified type from Last 3 Months [...] EST Office Visit Hematology [place] [phone] Markel Borjas MD [facility] [address] [place] [address] 11/02/2024 12:00 PM EDT Appointment [place] [phone] 11/02/2024 1:00 PM EDT Office [place] [address] Magdalena Peralta MD [facility] [address] 03/01/2025 4:15 PM EDT Office Visit Dermatology at [address] [phone] Marek Bonilla MD [facility], [place] [address] Health Maintenance Due Date Last Done Comments [...] 05/18/2024, 06/05/2021 Medical Devices Implanted Type Area Supervisor Personnel Clerks Device Identifier Shelf Expiration Date Model / Serial / Lot Valve,Aor,Pericar d,Magna,25mm ([id number]) - [id number] Implanted:Qty: 1 on 09/21/2016 by lAirio Esparza MD at [facility] IMPLANTS N/A: Heart DO NOT USE [employer] - [id number] 06/02/2020 [id number] / / [id number] Cable,Blnt,Ss,38i n ([id number]) - [id number] Implanted:Qty: 4 on 09/21/2016 by Alirio Esparza MD at [facility] IMPLANTS N/A: Chest [employer] - [id number] 04/29/2021 [id number] / / [id number] Patch,Cav,Pericar d,2x5cm ([id number]) (Autoreq) - [id number] Implanted:Qty: 1 on 09/21/2016 by Alirio Esparza MD at [facility] IMPLANTS N/A: Heart DO NOT USE [employer] - [id number] 04/21/2018 [id number] / / [id number] Tavr-05/12/2023 Implanted:Qty: 1 on 05/12/2023 by Antelmo Sharma MD Other Heart [employer] - [place] LI [id number] / [id number] / Description:[employer] NCES ABBY 3 ULTRA [...] EST Diagnostic Bone Marrow Biopsies & Aspirations (02239) 06/05/2024 2:03 PM EST Anemia, in pt [...] MD PATHOLOGY/CYTOLOGY ORDERABLES Performing Organization Address [facility] Co de Phone Number [facility] [place] [address] * BM HOLD FLOW/MOLECULAR (06/05/2024 2:22 PM EST) Bone Marrow Non Blood Collection / Unknown 06/05/2024 2:22 PM EST 06/05/2024 3:07 PM EST Markel Borjas MD PATHOLOGY/CYTOLOGY ORDERABLES Performing Organization Address City/[facility]/ZIP Co de Phone Number [facility] [place] [address] * Bone Marrow (06/05/2024 2:22 PM EST) Case Report Bone Marrow Patholog y Report ?Case: [id number] ? Authorizing Provider: ??Indio, Markel R, MD ?Collected: ? 06/05/2024 1422 ? Ordering Location: ? [facility]patient [facility] Center ??Received: ?06/05/2024 1508 ? [facility] ? Hospital ? Pathologist: ? Citlaly, [...] is less likely. Clinical correlation is recommended. 4 1:31 PM [facility] Addendum electronically signed by Georges Boucher MD on 06/22/2024 at 1:31 PM Final Diagnosis BONE MARROW (BLOOD FILM, ASPIRATE, TOUCH PREP, CORE & CLOT SECTIONS): 1. Normocellular bone marrow with maturing trilineage hematopoiesis. No overt dysplasia or increased blasts. 2. Ancillary studies pending. 4 1:31 PM [facility] neoplasm. Final integrated report to follow. 4 1:31 PM [facility] [...] in 1 cassette labeled C1. CCP 4 1:31 PM [facility] [...] cells. Bone: Trabecular bone normal for age. 1:31 PM [facility] Bone Marrow Differential Band/Seg 34%; Lymph 8%; Harris 0%; Eos 2%; Baso 1%; Metamyelocyte 13%; Myelocyte 9%; Promyelocyte 2%; Blast 1%; nRBC's 27%; Plasma cell 3% 4 1:31 PM [facility] Result Note Routine 4 1:31 PM [facility] Peripheral Blood Morphology RBCs: Mildly macrocytic anemia with rare target cells, ovalocytes. WBCs: Unremarkable. Platelets: Rare large platelet form present. 1:31 PM [facility] STRUCTURE OF LEFT ILIAC CREST / Unknown 06/05/2024 2:22 PM EST 06/05/2024 3:08 PM EST STRUCTURE OF LEFT ILIAC CREST / Unknown 06/05/2024 2:22 PM EST 06/05/2024 3:08 PM EST STRUCTURE OF LEFT ILIAC CREST / Unknown 06/05/2024 2:22 PM EST 06/05/2024 3:08 PM EST Markel Borjas MD PATHOLOGY/CYTOLOGY ORDERABLES [facility] [place] [address] * Chromosome Analysis, Acquired ([facility]) (06/05/2024 2:22 PM EST) Pathologist [facility] Chromosome, Leukemia/Lymph ananya ([facility]) See Scanned Result 06/14/2024 6:28 PM EST REF [facility] Specimen Condition ([facility]) 06/14/2024 6:28 PM EST REF [facility] Bone Marrow Non Blood Collection / Unknown 06/05/2024 2:22 PM EST 06/05/2024 3:07 PM EST Georges Boucher MD LAB SEND OUT ORDERAB LES [facility] [address] [place] [address]RUST * DH HemeSeq (Bone Marrow) (06/05/2024 2:22 PM EST) Pathologist [facility] NGS Report Status Normal 06/13/2024 10:21 AM EST [facility] Bone Marrow Non Blood Collection / Unknown 06/05/2024 2:22 PM EST 06/05/2024 3:07 PM EST Georges Boucher MD MOLECULAR ORDERABLES [facility] [place] [address] * Immunophenotyping Flow Cytometry (06/05/2024 2:22 PM EST) Pathologist [facility] Final Diagnosis - No monotypic B-cell population, no monotypic plasma cell population, no phenotypically abnormal T-cell population or increase in blasts is detected. 06/06/2024 2:08 PM EST [facility] Signing Pathologist This result has been reviewed by Georges Boucher MD on 06/06/24 at 2:08 PM. 06/06/2024 2:08 PM EST [facility] Interpretation CD19+ B-cells show [...] PM [facility] [place]lina:Lambda Ratio 1.8 06/06/2024 2:08 PM [facility] [...] Flow Cytometry Laboratory at [facility]. It has not been cleared or [...] complexity clinical laboratory testing. 06/06/2024 2:08 PM [facility] Bone Marrow Non Blood Collection / Unknown 06/05/2024 2:22 PM EST 06/05/2024 3:07 PM EST Georges Boucher MD HEMATOLOGY ORDERABLE S [facility] [place] [address] * Myelodysplastic Syndrome (MDS) FISH Panel (06/05/2024 [...] [facility] ISCN Nomenclature nuc josselin(D5S23,EGR1)x2[ 200],(D7Z1,I2S491) x2[200],(D8Z2,D20S 108)x2[200] 06/08/2024 11:23 PM [facility] Culture Type Direct [place] 06/08/20 11:23 PM [facility] FISH Method Interphase 06/08/2024 11:23 PM [facility] Interpretation Interphase FISH analysis using probes for the EGR1/5q31 and D5S23/5p15.2 loci ([employer] shows 2.0% and 0% of 200 cells with 5q signal deletion (5q-) and chromosome 5 signal loss (monosomy 5) patterns, respectively. These are within acceptable reference limits (5q deletion: 0-6.3%; monosomy 5: 0-3.8%). Thus, there is no evidence for 5q deletion and monosomy 5. Interphase FISH analysis using probes for CEP7/D7Z1/7p11.1q1 1.1 and C0I289/7q31 loci ([employer] shows 1.5% and 0% of 200 cells with 7q signal deletion (7q-) and chromosome 7 signal loss (monosomy 7) patterns, respectively. These are within acceptable reference limits (7q deletion: 0-6.3%; monosomy 7: 0-4.4%). Thus, there is no evidence for 7q deletion and monosomy 7. Interphase FISH analysis using probes for CEP8/D8Z2/8p11.1q1 1.1 and H24J321/20q12 loci ([employer] shows 0% and [...] The FISH probes are directly-labeled by the command and control systems integrator ([employer] or [employer]) with either a spectrum orange, green, or aqua fluorochrome. Cells are stained with DAPI ([employer]), visualized through fluorescence microscopy, and images captured on the CytoVision software ([employer]). Results are reported based on an International System for Human Cytogenomic Nomenclature. 06/08/2024 11:23 PM EST [facility] Limitations & Disclaimers The FISH test was developed and its performance characteristics were determined by the [facility] ([facility]) Cytogenetics Laboratory as required by The Clinical [...] verified the test's accuracy and precision. The [facility] Cytogenetics Laboratory is certified under the CLIA'88 as qualified to perform high complexity clinical laboratory testing. Chromosome alterations outside the regions complementary to these DNA FISH probes will not be detected. 06/08/2024 11:23 PM EST [facility] Sign-out by Professional component performed by Lizette Bullock, Ph.D., [facility], [address], [place], [place] (CLIA #: [id number]). 06/08/2024 11:23 PM EST [facility] Bone Marrow Non Blood Collection / Unknown 06/05/2024 2:22 PM EST 06/05/2024 3:07 PM EST Georges Boucher MD MOLECULAR ORDERABLES [facility] [place] [address] * (ABNORMAL) CBC (with Diff) (06/05/2024 1:45 [...] Neutrophil % 62.8 % 06/05/2024 2:38 PM EST [facility] Neutrophil Absolute (ANC) - Automated 1.92 1.70 - 6.10 x10(3)/mc L 06/05/2024 2:38 PM EST [facility] Lymph % 20.9 % 06/05/2024 2:38 PM [facility] Lymph Absolute 0.64(L) 0.90 - 3.20 x10(3)/mc L 06/05/2024 2:38 PM EST [facility] Monocyte % 15.0 % [...] 0.04 x10(3)/mc L 06/05/2024 2:38 PM EST [facility] Blood VENOUS BLOOD SPECIMEN / Unknown Venipuncture / Unknown 06/05/2024 1:45 PM EST 06/05/2024 1:59 PM EST Markel Borjas MD HEMATOLOGY ORDERAB LES [facility] [place] [address] * DXA Central Spine, Hip, and/or Whole Body (Generic) (05/18/2024 11:21 AM EDT) PT CLASS O RAD ADMITDTTM [id number] [facility] PT [facility] INFO [id number]^Dave ^Magdalena [facility] EXAM DESC XDXAC^BD Bone Density DEXA Axial Skeleton^RIS [facility] WORKSTATION ID RADDRIMAGE [facility] Anatomical Region Laterality Modality C-spine, [...] questions please contact the health wound care center consultant that requested your imaging first. ? Electronically signed by: Rocael Villatoro MD, [facility] ([phone]), at 05/18/2024 11:25 AM Narrative 05/18/2024 11:25 [...] have questions please contactthe health wound care center consultant that requested your imaging first. Electronically signed by: Rocael Villatoro MD, [facility]([phone]), at 05/18/2024 11:25 AM Magdalena Acosta MD IMG DEXA ORDERABLES * MAMMO SCREENING CAD BILATERAL (CH) (05/18/2024 11:21 AM EDT) PT CLASS O RAD ADMITDTTM [id number] RAD PT RAD INFO [id number]^Dave ^Magdalena RAD EXAM DESC MADDSCCH^MG Mammo Digital [...] questions please contact the health wound care center consultant that requested your imaging first. ? Electronically signed by: Rocael Villatoro MD, [facility] ([phone]), at 05/18/2024 3:[address] ??[address] Narrative 05/18/2024 3:05 PM EDT EXAMINATION: MG [...] have questions please contactthe health wound care center consultant that requested your imaging first. Electronically signed by: Rocael Villatoro MD, [facility]([phone]), at 05/18/2024 3:05 PM [place] [id number] Magdalena Acosta MD PACS IMAGES * Reticulocyte [...] EDT 05/12/2024 8:56 AM EDT Tova Russell SLUDGE FILTRATION ATTENDANT HEMATOLOGY ORDERABL ES [facility] [place] [address] * (ABNORMAL) Comprehensive metabolic panel Non-fasting (05/12/2024 8:56 AM [facility]) Glucose 86 65 - 199 mg/dL 05/12/2024 11:36 AM [facility] Comment:Glucose Concentratio n >=200 mg/dL plus symptoms is consistent with Diabetes Mellitus. Blood Urea Nitrogen 20(H) 8 - 18 mg/dL 05/12/2024 11:36 AM [facility] Creatinine 0.88 0.70 - 1.20 mg/dL 05/12/2024 11:36 AM [facility] Sodium 145 135 - 145 mMol/L 05/12/2024 11:36 AM [facility] Potassium 4.6 3.5 - 5.0 mMol/L 05/12/2024 11:36 AM [facility] Chloride 109(H) 98 - 107 mMol/L 05/12/2024 11:36 AM [facility] Carbon Dioxide 21(L) 22 - 31 mMol/L 05/12/2024 11:36 AM [facility] Anion Gap 15 5 - 15 mMol/L 05/12/2024 11:36 AM [facility] Comment:Not Calculated. Calcium 9.9 8.5 - 10.5 mg/dL 05/12/2024 11:36 AM [facility] Protein, Total 7.3 6.1 - 8.0 g/dL 05/12/2024 11:36 AM [facility] Albumin 4.5 3.2 - 5.2 g/dL 05/12/2024 11:36 AM [facility] Aspartate Aminotransferase 24 <=30 unit/L 05/12/2024 11:36 AM [facility] Alanine Aminotransferase 14 0 - 30 unit/L 05/12/2024 11:36 AM [facility] Alkaline Phosphatase 98 35 - 105 unit/L 05/12/2024 11:36 AM [facility] Bilirubin, Total 0.2 <=1.3 mg/dL 05/12/2024 11:36 AM EDT [facility] Est Glomerular Filtration [...] EDT 05/12/2024 8:56 AM EDT Tova Russell SLUDGE FILTRATION ATTENDANT CHEMISTRY ORDERABLE S [facility] [address] from Last 3 Months Advance Directives * [...] capacity to make decision: Yes Care Teams Freight Inspector Relationship Specialty Start Date End Date Magdalena Acosta MD [address] [place] [id number] PCP - General Family Medicine 02/05/23
[2024-06-22 14:11] VITALS: BP 109/61; PULSE 80
--- OUTSIDE RECORDS SUMMARY | 2024-06-22 14:11 | XMS_ITS | Encounter Summary ---
Author Organization [facility] Address [facility] [place] [address] Care Team Providers Care Outer Diameter Grinder Name Role Phone Magdalena Acosta MD Primary Care Provider [phone] Encounter Details Date Type Department Care Team [...] EST Office Visit Hematology [place] [address] Markel Borjas MD [facility] [address] [place]AT[place] [address] 11/02/2024 12:00 PM EDT [place]oint[place] [address] 11/02/2024 1:00 PM EDT Office [place] [address] Magdalena Peralta MD [facility] [place] [address] 03/01/2025 4:15 PM EDT Office Visit Dermatology at [place] [address] [facility] [place] [phone] Marke Bonilla MD [address] [place] [address] documented as of this encounter Visit Diagnoses Not on filedocumented in this encounter Care Teams Outer Diameter Grinder Relationship Specialty Start Date End Date Magdalena Acosta MD [address] [place] [address] PCP - General Family Medicine 02/05/23 documented as of this encounter
--- OUTSIDE RECORDS SUMMARY | 2024-06-22 14:11 | XMS_ITS | Encounter Summary ---
Author Organization [facility] Address [facility] [place] [address] Care Team Providers Care Type Casting Machine Operator Name Role Phone Magdalena Acosta MD Primary Care Provider [phone] Encounter Details Date Type Department Care Team [...] Visit Hematology [place] [address] [facility] [address] [place] [address] 11/02/2024 12:00 PM EDT Appointment [place] [address] 11/02/2024 1:00 PM EDT Office [place] [address] [facility] [place] [address] 03/01/2025 4:15 PM EDT Office Visit Dermatology at [place] [address] [facility] [place] [phone] Marek Bonilla MD [address] [place] [address] documented as of this encounter Visit Diagnoses Not on filedocumented in this encounter Care Teams Type Casting Machine Operator Relationship Specialty Start Date End Date Magdalena Acosta MD [address] [place] [address] PCP - General Family Medicine 02/05/23 documented as of this encounter
--- OUTSIDE RECORDS SUMMARY | 2024-06-22 14:11 | XMS_ITS | Encounter Summary ---
Author Organization [facility] [place] [address] Care Team Providers Care Community Education Coordinator Name Role Phone Magdalena Acosta MD Primary Care Provider [phone] Encounter Details Date Type Department Care Team (Late st Contact Info) Description 12/02/2023 11:15 AM EDT Office [place] [address] Magdalena Peralta MD [facility] [place] [address] Mixed connective tissue disease Social History Tobacco [...] 1:5120 speckled; VIC negative; Myositis panel with TECHNICAL PROPOSAL WRITER ab 149.1 (positive); Anti U1RNP IgG [...] questions that she sent via [facility] ahead of her visit, which we [...] exposure. She has an appointment with her Electric Organ Assembler scheduled in January. (Dr Bonilla in [place]) ROS (positives in bold): Gen: no fevers, [...] but I encouraged her to contact her Electric Organ Assembler to see if she could have her [...] Dr. Tanisha Peralta MD Rheumatology Fellow Pager: [phone] * Federico Yee MD - 12/02/2023 11:15 [...] EST Office Visit Hematology and Oncology at [place] [phone] Markel Borjas MD [facility] [address] [place]AT[place] [address] 11/02/2024 12:00 PM EDT Appointment Pulmonology at [place] [address] 11/02/2024 1:00 PM EDT Office Visit Rheumatology at [place] [address] Magdalena Peralta MD [facility] [place] [address] 03/01/2025 4:15 PM EDT Office Visit Dermatology at [place] [address] [facility] [place] [address] Marek Bonilla MD [address] [facility] [place] [address] Scheduled Orders Name Type Priority Associated Diagnoses Orde r Schedule EKG 12 Lead ECG Routine Mixed connective tissue disease Expected: 12/02/2023, Expires: 06/03/2024 documented as of this encounter Visit Diagnoses Diagnosis Mixed connective tissue disease Other specified diffuse disease of connective tissue documented in this encounter Care Teams Community Education Coordinator Relationship Specialty Start Date End Date Magdalena Acosta MD [address] [place] [address] PCP - General Family Medicine 02/05/23 documented as of this encounter
--- OUTSIDE RECORDS SUMMARY | 2024-06-22 14:11 | XMS_ITS | Encounter Summary ---
Author Organization [facility] Address [facility] [place] [address] Care Team Providers Care Roofing Superintendent Name Role Phone Magdalena Acosta MD Primary Care Provider [phone] Encounter Details Date Type Department Care Team [...] EST Office Visit Hematology [place] [address] Markel Brojas MD [facility] [address] [place] [address] 11/02/2024 12:00 PM EDT Appointment [place] [address] 11/02/2024 1:00 PM EDT Office [place] [address] Magdalena Peralta MD [facility] [place] [address] 03/01/2025 4:15 PM EDT Office Visit Dermatology at [place] [address] [facility] [place] [phone] Marek Bonilla MD [address] [facility] [facility] [address], [address] [place] [address] documented as of this encounter Visit Diagnoses Not on filedocumented in this encounter Care Teams Roofing Superintendent Relationship Specialty Start Date End Date Magdalena Acosta MD [address] [place] [address] PCP - General Family Medicine 02/05/23 documented as of this encounter
--- OUTSIDE RECORDS SUMMARY | 2024-06-22 14:11 | XMS_ITS | Encounter Summary ---
[place] [address] Care Team Providers Care Food General Manager Name Role Phone Magdalena Acosta MD Primary Care Provider [phone] Encounter Details Date Type Department Care Team (Latest Contact Info) Description 10/05/2023 10:52 AM EST - 10/05/2023 11:59 PM [facility] En[place] [address] Mixed connective tissue disease Discharge Disposition: Home [...] topically 2 times daily as needed. 10/22/2022 [employer] Verio test strips Strip USE DAILY 01/03/2022 [employer] Delica Plus Lancet 33 gauge Misc USE [...] EST Office Visit Hematology [place] [address] Markel Borjas MD [facility] [address] HEMATOLOGY [place] [address] 11/02/2024 12:00 PM EDT Appointment [place] [address] 11/02/2024 1:00 PM EDT Office [place] [address] Magdalena Peralta MD [facility] [place] [address] 03/01/2025 4:15 PM EDT Office Visit Dermatology at [place] [address] [facility] [place] [address] Marek Bonilla MD [address] [place] [address] documented as of this encounter Procedures Procedure [...] PFT FEV1/FVC Pre-BD Z-Score 0 COMPAS PFT SUZ51-11 Actual Pre-BD 2.41 % COMPAS PFT JVG30-40 Predicted 1.8 % COMPAS PFT GBP80-08 Pre-BD % of Predicted 134 % COMPAS PFT XBP04-37 Pre-BD Z-Score 0.81 COMPAS PFT DLCO Hb [...] documented in this encounter Care Teams Food General Manager Relationship Specialty Start Date End Date Magdalena Acosta MD [address] [place] [address] PCP - General Family Medicine 02/05/23 documented as of this encounter
--- OUTSIDE RECORDS SUMMARY | 2024-06-22 14:11 | XMS_ITS | Encounter Summary ---
Author Organization [facility] Address [facility] [place] [address] Care Team Providers Care Director Of Market Analysis Name Role Phone Magdalena Acosta MD Primary Care Provider [phone] Encounter Details Date Type Department Care Team [...] Office Visit Hematology [place] [address] Markel Borjas MD [facility] [address] [place] [address] 11/02/2024 12:00 PM EDT Appointment [place] [address] 11/02/2024 1:00 PM EDT Office [place] [address] Magdalena Peralta MD [facility] [place] [address] 03/01/2025 4:15 PM EDT Office Visit Dermatology at [place] [address] [facility] [place] [address] Marek Bonilla MD [address] [place] [address] documented as of this encounter Visit Diagnoses Not on filedocumented in this encounter Care Teams Director Of Market Analysis Relationship Specialty Start Date End Date Magdalena Acosta MD [address] [place] [address] PCP - General Family Medicine 02/05/23 documented as of this encounter
--- OUTSIDE RECORDS SUMMARY | 2024-06-22 14:11 | XMS_ITS | Encounter Summary ---
[place] [address] Care Team Providers Care Woodworking Craftsman Name Role Phone Magdalena Acosta MD Primary Care Provider [phone] Reason for Visit * Reason Onset Date Comments Pre Procedure Call 03/01/2024 DAPT hold for EGD and colo? Encounter Details Date Type Department Care Team (Late st Contact Info) Description 03/01/2024 Telephone Cardiology at [address] [phone] Cynthia Monsalve RN Pre Procedure Call (DAPT hold for EGD and colo?) Social History Tobacco Use Types Packs/Day Years Used Date Smoking Tobacco: Never Smokeless Tobacco: Never Alcohol Use Standard Drinks/Week Comments No 0 (1 standard drink = 0.6 oz pur e alcohol) none [facility] Inpatient Questions Answer Date Recorded Does Anyone [...] safe. Jay Message above left with Yenifer (home care scheduler), who would be leaving this note in patient's chart for providers to schedule patient. No further questions or needs at this time. This nurse stated, note will be placed regarding this call in our chart for patient. Kezia Whitney RN, BSN Ambulatory Cardiology Clinic, [facility] [phone] * Telephone Encounter - Cynthia Monsalve RN [...] EST Office Visit [place] [address] Markel Borjas MD [facility] DR HEMATOLOGY [place] [address] 11/02/2024 12:00 PM EDT [place] [address] 11/02/2024 1:00 PM EDT Office [place] [address] Magdalena Peralta MD [facility] [place] [address] 03/01/2025 4:15 PM EDT Office Visit Dermatology at [address] [place] [address] Marek Bonilla MD [address] [place] [address] documented as of this encounter Visit Diagnoses Not on filedocumented in this encounter Care Teams Woodworking Craftsman Relationship Specialty Start Date End Date Magdalena Acosta MD [address] [place] [address] PCP - General Family Medicine 02/05/23 documented as of this encounter
--- OUTSIDE RECORDS SUMMARY | 2024-06-22 14:11 | XMS_ITS | Encounter Summary ---
Author Organization [facility] Address [facility] [place] [address] Care Team Providers Care Cadd Drafter Name Role Phone Magdalena Acosta MD Primary Care Provider [phone] Encounter Details Date Type Department Care Team (Late st Contact Info) Description 07/29/2023 11:00 AM EST Office [place] [address] Magdalena Peralta MD [facility] [place] [address] Mixed connective tissue disease Social History Tobacco [...] 1:5120 speckled; VIC negative; Myositis panel with DEAN OF WOMEN ab 149.1 (positive); Anti U1RNP IgG 119; [...] Viramontes. Magdalena Peralta MD Rheumatology Fellow Pager: [phone] * Kia Viramontes DO - 07/29/2023 11:00 AM EST ATTENDING ADDENDUM The patient's history was reviewed, and I interviewed and examined the patient with Dr. Peralta I agree with her summary, findings, and plan. documented in this encounter Plan of Treatment Upcoming Encounters Date Type Department Care Team (Late st Contact Info) Description 06/23/2024 2:00 PM EST Office Visit [place]ology [place] [address] Markel Borjas MD [facility] [address] HEMATOLOGY [place] [address] 11/02/2024 12:00 PM EDT Appointment [place] [address] 11/02/2024 1:00 PM EDT Office [place] [address] Magdalena Peralta MD [facility] [place] [address] 03/01/2025 4:15 PM EDT Office Visit Dermatology at [place] [address] [facility] [place] [address] Marek Bonilla MD [address] [facility] [address] [facility] [address], [place] [address] documented as of this encounter Results * [...] PFT FEV1/FVC Pre-BD Z-Score 0 COMPAS PFT XXY17-68 Actual Pre-BD 2.41 % COMPAS PFT ZXM23-10 Predicted 1.8 % COMPAS PFT OXD81-59 Pre-BD % of Predicted 134 % COMPAS PFT ONG34-86 Pre-BD Z-Score 0.81 COMPAS PFT DLCO Hb [...] tissue documented in this encounter Care Teams Cadd Drafter Relationship Specialty Start Date End Date Magdalena Acosta MD [address] [place] [address] PCP - General Family Medicine 02/05/23 documented as of this encounter
--- OUTSIDE RECORDS SUMMARY | 2024-06-22 14:11 | XMS_ITS | Encounter Summary ---
Author Organization [facility] Address [facility] [place] [address] Care Team Providers Care Fabricating Machine Operator Name Role Phone Magdalena Acosta MD Primary Care Provider [phone] Encounter Details Date Type Department Care Team (Latest Contact Info) Description 05/12/2024 9:00 AM EDT Laboratory Appointment Lab at [facility] Hematology Oncology [address] [place] [phone] S/P TAVR (transcatheter aortic valve replacement); [...] EST Office Visit [place] [address] Markel Borjas MD [facility] [address] HEMATOLOGY AND ONCOLOGY [place], [place] [address] 11/02/2024 12:00 PM EDT Appoint[place] [address] 11/02/2024 1:00 PM EDT Office [place] [address] Magdalena Peralta MD [facility] [place] [address] 03/01/2025 4:15 PM EDT Office Visit Dermatology at [place] [address] [place] [address] Marek Bonilla MD [address], [place] [address] documented as of this encounter Procedures Procedure [...] EDT 05/12/2024 8:56 AM EDT Tova Russell VPK TEACHER HEMATOLOGY ORDERABL ES [facility] [place] [address] * (ABNORMAL) Comprehensive metabolic panel Non-fasting (05/12/2024 8:56 AM EDT) Glucose 86 65 - 199 mg/dL 05/12/2024 11:36 AM EDT [facility] Comment:Glucose Concentratio n >=200 mg/dL plus symptoms is consistent with Diabetes Mellitus. Blood Urea Nitrogen 20(H) 8 - 18 mg/dL 05/12/2024 [facility] Creatinine 0.88 0.70 - 1.20 mg/dL 05/12/2024 11:36 AM T [facility] Sodium 145 135 - 145 mMol/L 05/12/2024 11:36 AM [facility] Potassium 4.6 3.5 - 5.0 mMol/L 05/12/2024 11:36 AM [facility] Chloride 109(H) 98 - [...] EDT 05/12/2024 8:56 AM EDT Tova Russell VPK TEACHER CHEMISTRY ORDERABLE S [facility] [place] [address] * (ABNORMAL) CBC (with Diff) (05/12/2024 8:56 AM EDT) White Blood Cell 3.47(L) 4.00 - 9.50 x10(3)/mc L 05/12/2024 9:32 AM EDT [facility] Red Blood Cell 3.31(L) 4.00 - 5.21 x10(6)/mc L 05/12/2024 9:32 AM [facility] Hemoglobin 11.1(L) 11.7 - 15.5 g/dL 05/12/2024 9:32 AM [facility] Hematocrit 33.2(L) 35.7 - 45.8 % 05/12/2024 9:32 AM [facility] Mean Cell Volume 100.3(H) 82.6 - 94.4 fL 05/12/2024 9:32 AM [facility] Mean Cell Hemoglobin 33.5(H) 27.1 - 32.0 pg 05/12/2024 9:32 AM [facility] Mean Cell Hemoglobin Concentration 33.4 31.7 - 35.0 g/dL 05/12/2024 9:32 AM [facility] Platelet 142(L) 145 - 357 x10(3)/mc L 05/12/2024 9:32 AM [facility] Mean Platelet Volume 8.7 7.6 - 12.9 fL 05/12/2024 9:32 AM [facility] RDW Standard Deviation 44.4 37.0 - 46.0 fL 05/12/2024 9:32 AM [facility] RDW coefficient of variation 12.0 11.5 - 14.1 % 05/12/2024 9:32 AM [facility] NRBC% auto 0.0 % 05/12/2024 9:32 AM [facility] NRBC Absolute <0.01 <0.01 x10(3)/mc L 05/12/2024 9:32 AM [facility] Neutrophil % 69.7 % 05/12/2024 9:32 AM [facility] Neutrophil [...] EDT 05/12/2024 8:56 AM EDT Tova Russell VPK TEACHER HEMATOLOGY ORDERABL ES [facility] [place] [address] documented in this encounter Visit Diagnoses Diagnosis S/P TAVR (transcatheter aortic valve replacement) Chronic idiopathic neutropenia Other neutropenia documented in this encounter Care Teams Fabricating Machine Operator Relationship Specialty Start Date End Date Magdalena Acosta MD [address] [place] [address] PCP - General Family Medicine 02/05/23 documented as of this encounter
--- OUTSIDE RECORDS SUMMARY | 2024-06-22 14:11 | XMS_ITS | Encounter Summary ---
Author Organization [facility] Address [facility] [place] [address] Care Team Providers Care Transformer Coil Winder Name Role Phone Magdalena Acosta MD Primary Care Provider [phone] Encounter Details Date Type Department Care Team [...] EST Office Visit Hematology [place] [address] Markel Borjas MD [facility] DR HEMATOLOGY [place] [address] 11/02/2024 12:00 PM EDT Appoint[place] [address] 11/02/2024 1:00 PM EDT Office [place] [address] Magdalena Peralta MD [facility] DR [place] [address] 03/01/2025 4:15 PM EDT Office Visit Dermatology at [place] [address] [facility] [place] [address] Marek Bonilla MD [address], [address] [place] [address] documented as of this encounter Visit Diagnoses Not on filedocumented in this encounter Care Teams Transformer Coil Winder Relationship Specialty Start Date End Date Magdalena Acosta MD [address] [place] [address] PCP - General Family Medicine 02/05/23 documented as of this encounter
--- OUTSIDE RECORDS SUMMARY | 2024-06-22 14:11 | XMS_ITS | Encounter Summary ---
Author Organization [facility] Address [facility] [place] [address] Care Team Providers Care Tool Or Die Drawing Checker Name Role Phone Magdalena Acosta MD Primary Care Provider [phone] Encounter Details Date Type Department Care Team [...] EST Office Visit [place] [address] Markel Borjas MD [facility] [address] HEMATOLOGY [place] [address] 11/02/2024 12:00 PM EDT [place] [address] 11/02/2024 1:00 PM EDT [place] [address] Magdalena Peralta MD [facility] [place] [address] 03/01/2025 4:15 PM EDT Office Visit Dermatology at [place] [address] [facility] [place] [address] Marek Bonilla MD [address], [place] [address] documented as of this encounter Visit Diagnoses Not on filedocumented in this encounter Care Teams Tool Or Die Drawing Checker Relationship Specialty Start Date End Date Magdalena Acosta MD [address] [place] [address] PCP - General Family Medicine 02/05/23 documented as of this encounter
--- OUTSIDE RECORDS SUMMARY | 2024-06-22 14:11 | XMS_ITS | Encounter Summary ---
Author Organization [facility] [place] [address] Care Team Providers Care Dye Range Operator Cloth Name Role Phone Magdalena Acosta MD Primary Care Provider [phone] Encounter Details Date Type Department Care Team (Late st Contact Info) Description 05/27/2023 Refill Cardiology at [address] [phone] Vero Marrero, RN Social History Tobacco Use [...] May 27, 2023 Jay Maza PA to Pr 05/27/23 2:44 PM OK to change ticagrelor to Clopidogrel. Now, she should be taking ticagrelor 90mg BID. When she switches, she can take ticagrelor, then the next morning, stop ticagrelor, instead take clopidogrel 300mg once, then after that 75mg once daily. Jay Marrero ship unloader Clinic at [facility] [address] * Telephone Encounter - Vero Marrero RN [...] more affordable option, if possible. Vero Marrero ship unloader Clinic at [facility] [address] documented in this encounter Plan of Treatment Upcoming Encounters Date Type Department Care Team (Late st Contact Info) Description 06/23/2024 2:00 PM EST Office Visit Hematology and Oncology at [place] [phone] Markel Borjas MD [facility] [place] [address] 11/02/2024 12:00 PM EDT Appointment Pulmonology at [place] [phone] 11/02/2024 1:00 PM EDT Office Visit Rheumatology at [place] [phone] Magdalena Peralta MD [facility] [place] [address] 03/01/2025 4:15 PM EDT Office Visit Dermatology at [place] [address] [place] [address] Marek Bonilla MD [address], [place] [address] documented as of this encounter Visit Diagnoses Diagnosis Aortic valve stenosis, etiology of cardiac valve disease unspecified documented in this encounter Care Teams Dye Range Operator Cloth Relationship Specialty Start Date End Date Magdalena Acosta MD [address] [place] [address] PCP - General Family Medicine 02/05/23 documented as of this encounter
--- OUTSIDE RECORDS SUMMARY | 2024-06-22 14:11 | XMS_ITS | Encounter Summary ---
[place] [address] Care Team Providers Care Urologic Surgeon Name Role Phone Magdalena Acosta MD Primary Care Provider [phone] Reason for Referral * Consultation (Routine) - Closed Specialty Diagnoses / Procedures Referred By Contac t Referred To Contact Hematology and Oncology Diagnoses Anemia, unspecified type Consuelo Guerrero DO [address] [place] [address] [address] [place] [address] [facility] [address] [place] [address] Referral ID Status Reason Start Date Expiration Date V isits Requested Visits Authorized [id number] Closed Consult, Test & Treat 04/11/2024 04/11/2025 1 1 Encounter Details Date Type Department Care Team (Late st Contact Info) Description 04/11/2024 Transcribe Orders eDH Incoming Referrals [phone] Consuelo Guerrero DO [address] [place] [address] [address] [place] [address] Anemia, unspecified type Social History [...] Hematology [place] [address] Markel Borjas MD [facility] [address] [place] [address] 11/02/2024 12:00 PM EDT Appointment Pulmonology at [place] [address] 11/02/2024 1:00 PM EDT Office Visit Rheumatology at [place] [address] Magdalena Peralta MD [facility] [place] [address] 03/01/2025 4:15 PM EDT Office Visit Dermatology at [address] [place] [address] Marek Bonilla MD [address] [place] [address] Scheduled Referrals Name Type Priority Associated Diagnoses Orde r Schedule Referral to Hematology and Oncology Outpatient Referral Routine Anemia, unspecified type Ordered: 04/11/2024 documented as of this encounter Visit Diagnoses Diagnosis Anemia, unspecified type documented in this encounter Care Teams Urologic Surgeon Relationship Specialty Start Date End Date Magdalena Acosta MD [address] [place] [address] PCP - General Family Medicine 02/05/23 documented as of this encounter
--- OUTSIDE RECORDS SUMMARY | 2024-06-22 14:11 | XMS_ITS | Encounter Summary ---
Author Organization [facility] Address [facility] [place] [address] Care Team Providers Care Quartz Cutter Name Role Phone Magdalena Acosta MD Primary Care Provider [phone] Reason for Visit * Reason Comments Coronary Artery Disease Hypertension Aortic Stenosis Encounter Details Date Type Department Care Team (Latest Contact Info) Description 07/20/2023 4:40 PM EST TH Visit (TeleHealth) Cardiology at [address] [address] Jay Maza PA [facility] [place] [place] [address] HFrEF (heart failure with reduced ejection fraction); [...] Maza PA - 07/20/2023 4:40 PM EST [facility] Interventional Cardiology CARDIOLOGY [...] lieu of an in person office visit. Adhesive Bandage Making Operator: Antelmo Sharma MD ([facility] Cards) Maria Luz Mejia MD ([facility] cards) Problem List: [...] notable for coronary artery protection given low niofb-rg-zdjmerny distance. There was no obstruction post Valve deployment, but the stent could not be removed safely, so it was deployed. 4.0 mm x 30mm in left main. She was loaded on brilinta aka ticagrelor. Immediately post valve deployment, chest compressions to circulate central epinephrine which was administered given her hypotension, low LVEF, and low cardiac reserve. Next, the patient was transferred to [facility] for pressor and inotropic support. Pressors [...] arms and wrists. Successful right transfemoral TAVR [id number]-vp-Ookbw with a 23 mm Lai 3 THV. [...] leads Confirmed by MD Harshil, Haris Bell ([id number]) on 05/10/2023 8:11:46 AM Cardiac Cath 11/09/2022 [...] in chart review and direct patient contact. 1349DIM1 0-5min 7600DBF8 6-10min 3703WEZ5 11-15min 8675DIX3 16-20min x [id number] 21-30min 2231GNH4 31-40min 9303GFD5 40+ min Jay Maza PA-C Interventional Cardiology [facility] Pager [phone] documented in this encounter Plan of Treatment Upcoming Encounters Date Type Department Care Team (Late st Contact Info) Description 06/23/2024 2:00 PM EST Office Visit Hematology [place] [address] Markel Borjas MD [facility] [address] [place] [address] 11/02/2024 12:00 PM EDT Appointment [place] [address] 11/02/2024 1:00 PM EDT Office [place] [address] Magdalena Peralta MD [facility] [place] [address] 03/01/2025 4:15 PM EDT Office Visit Dermatology at [place] [address] [place] [address] Marek Bonilla MD [address] [facility] [place] [address] documented as of this encounter Visit Diagnoses Diagnosis HFrEF (heart failure with reduced ejection fraction) Hypertension, unspecified type Aortic valve stenosis, etiology of cardiac valve disease unspecified documented in this encounter Care Teams Quartz Cutter Relationship Specialty Start Date End Date Magdalena Acosta MD [address] [place] [address] PCP - General Family Medicine 02/05/23 documented as of this encounter
--- OUTSIDE RECORDS SUMMARY | 2024-06-22 14:11 | XMS_ITS | Encounter Summary ---
[place] [address] Care Team Providers Care Dust Puller Name Role Phone Magdalena Acosta MD Primary Care Provider [phone] Reason for Visit * Reason Comments Annual Exam Encounter Details Date Type Department Care Team (Late st Contact Info) Description 02/22/2024 4:15 PM EDT Office Visit Dermatology at [address] [phone] Marek Bonilla MD [address] [facility] A DERMATOLOGY [place], [place] [phone] Seborrheic keratosis; Rosacea; Nevus Social History Tobacco [...] cutaneous and ocular 3. Previously told by car construction superintendent that she had corneal tears from her [...] Office Visit Hematology [place] [address] Markel Borjas MD [facility] DR [place] [address] 11/02/2024 12:00 PM EDT Appointment [place] [address] 11/02/2024 1:00 PM EDT Office [place] [address] Magdalena Peralta MD [facility] [place] [address] 03/01/2025 4:15 PM EDT Office Visit Dermatology at [address] [place] [address] Marek Bonilla MD [address] [place] [address] documented as of this encounter Visit Diagnoses Diagnosis Seborrheic keratosis Other seborrheic keratosis Rosacea Nevus Benign neoplasm of skin, site unspecified documented in this encounter Care Teams Dust Puller Relationship Specialty Start Date End Date Magdalena Aocsta MD [address] [place] [address] PCP - General Family Medicine 02/05/23 documented as of this encounter
--- OUTSIDE RECORDS SUMMARY | 2024-06-22 14:11 | XMS_ITS | Encounter Summary ---
Author Organization [facility] [place] [address] Care Team Providers Care Sales Trainee Name Role Phone Magdalena Acosta MD Primary Care Provider [phone] Reason for Visit * Reason Comments Aortic Stenosis Coronary Artery Disease Hypertension Encounter Details Date Type Department Care Team (Latest Contact Info) Description 11/16/2023 11:40 AM EDT TH Visit (TeleHealth) Cardiology at [address] [address] Jay Maza PA [facility] [address] Aortic valve stenosis, etiology of cardiac valve disease unspecified; Coronary artery disease, unspecified vessel or lesion type, unspecified whether angina present, unspecified whether quileute or transplanted heart Social History Tobacco Use Types Packs/Day Years Used Date Smoking Tobacco: Never Smokeless Tobacco: Never Alcohol Use Standard Drinks/Week Comments No 0 (1 standard drink = 0.6 oz pur e alcohol) none [facility] Inpatient Questions Answer Date Recorded Does [...] from the original note were not included. [facility] Interventional Cardiology CARDIOLOGY TELE VISIT NOTE 11/16/23 Patient: Purnima Thacker Prior to the initiation of our discussion, the risks and benefits of tele health visits were discussed, and the patient consented verbally to this being a virtual telehealth visit in lieu of an in person office visit. CARDIOLOGISTS: Antelmo Sharma MD ([facility] Cards) Maria Luz Mejia MD ([facility] Cards - [facility]) Problem List: [...] fraction I35.0 Mild coronary artery disease by [facility] 11/09/2022 I25.10 Heart failure with [...] notable for coronary artery protection given low zliga-ua-gjdomhyl distance. There was no obstruction post Valve [...] leads Confirmed by MD Harshil, Haris Bell ([id number]) on 05/10/2023 8:11:46 AM Cardiac Cath 11/09/2022 [...] in one year. EKATERINA Thompson Time spent: [id number] 0-5min 2757DLN1 6-10min 7006QBQ1 11-15min x 5980VLD7 16-20min 2129KCD5 21-30min 3108OSO3 31-40min 1343DMM7 40+ min Jay Maza PA-C Interventional Cardiology [facility] Pager [phone] documented in this encounter Plan of Treatment Upcoming Encounters Date Type Department Care Team (Late st Contact Info) Description 06/23/2024 2:00 PM EST Office Visit [place] [address] Markel Borjas MD [facility] [address] [place] [address] 11/02/2024 12:00 PM EDT Appointment Pulmonology at [place] [address] 11/02/2024 1:00 PM EDT Office Visit Rheumatology at [address] Magdalena Peralta MD [facility] [place] [address] 03/01/2025 4:15 PM EDT Office Visit Dermatology at [place] [address] [place] [address] Marek Bonilla MD [address], [place] [address] documented as of this encounter Visit Diagnoses Diagnosis Aortic valve stenosis, etiology of cardiac valve disease unspecified Coronary artery disease, unspecified vessel or lesion type, unspecified whether angina present, unspecified whether quileute or transplanted heart documented in this encounter Care Teams Sales Trainee Relationship Specialty Start Date End Date Magdalena Acosta MD [address] [place] [address] PCP - General Family Medicine 02/05/23 documented as of this encounter
--- OUTSIDE RECORDS SUMMARY | 2024-06-22 14:11 | XMS_ITS | Encounter Summary ---
Author Organization [facility] [place] [address] Care Team Providers Care Wind Operations Supervisor Name Role Phone Magdalena Acosta MD Primary Care Provider [phone] Encounter Details Date Type Department Care Team (Late st Contact Info) Description 07/08/2023 10:15 AM EST Office Visit Cardiology at [address] [id number] Severe aortic stenosis Social History Tobacco Use [...] EST Office Visit Hematology [place] [address] Markel Borjas MD [facility] [address] [place] [address] 11/02/2024 12:00 PM EDT [place] [address] 11/02/2024 1:00 PM EDT Office [place] [address] Magdalena Peralta MD [facility] [address] RHEUMATOLOGY DEPT [place], [place] [address] 03/01/2025 4:15 PM EDT Office Visit Dermatology at [place] [address] [facility] [place] [phone] Marek Bonilla MD [address] [facility], [place] [address] documented as of this encounter Procedures Procedure [...] (Bezet) 449 ms MUSE SYSTEM Calculated P Ethel 66 degrees MUSE SYSTEM Calculated R Ethel 60 degrees MUSE SYSTEM Calculated T Ethel 53 degrees MUSE SYSTEM INTERPRETATION Normal sinus rhythm Minimal voltage criteria for LVH, may be normal variant ( Sokolow-Orozco ) ST & T wave abnormality, consider lateral ischemia ??vs. repolarization abnormality from LVH Abnormal ECG When compared with ECG of 13-MAY-2023 09:22, Premature ventricular complexes are no longer Present Minimal criteria for Septal infarct are no longer Present Confirmed by Maxx Best ([id number]) on 07/09/2023 10:07:22 AM MUSE SYSTEM 07/08/2023 10:2 7 AM EST 07/09/2023 10:07 AM EST Brody Kaplan APRN ECG ORDERABLES MUSE SYSTEM documented in this encounter Visit Diagnoses Diagnosis Severe aortic stenosis Aortic valve disorders documented in this encounter Care Teams Wind Operations Supervisor Relationship Specialty Start Date End Date Magdalena Acosta MD [address] [place] [address] PCP - General Family Medicine 02/05/23 documented as of this encounter
--- OUTSIDE RECORDS SUMMARY | 2024-06-22 14:11 | XMS_ITS | Encounter Summary ---
Author Organization [facility] Address [facility] [place] [address] Care Team Providers Care Santa'S Helper Name Role Phone Magdalena Acosta MD Primary Care Provider [phone] Encounter Details Date Type Department Care Team (Latest Contact Info) Description 07/08/2023 12:35 PM EST Laboratory Appointment Lab [address]L [place] [address] S/P TAVR (transcatheter aortic valve [...] Office Visit Hematology [place] [address] Markel Borjas MD [facility] [address] HEMATOLOGY [place] [address] 11/02/2024 12:00 PM EDT Appointment [place] [address] 11/02/2024 1:00 PM EDT Office [place] [address] Magdalena Peralta MD [facility] [place] [address] 03/01/2025 4:15 PM EDT Office Visit Dermatology at [place] [address] [place] [address] Marek Bonilla MD [address], [address] [place] [address] documented as of this encounter Procedures Procedure [...] 11:56 AM EST) Neutrophil % 73.2 % [facility] SPITAL [facility] Neutrophil Absolute 3.40 1.70 - 6.10 x10(3)/mc L [facility] Lymph % 16.1 % [facility] Lymphocytes Abs 0.8(L) 0.9 - 3.2 x10(3)/mc L [facility] Monocyte % 9.7 % [facility] HOSP ITAL [facility] Monocyte Abs 0.4 0.3 - 0.9 x10(3)/mc L [facility] Eos % 0.4 % [facility] Eosinophils Abs 0.0 0.0 - 0.4 x10(3)/mc L [facility] Basophil % 0.4 % [facility] ITAL LABORATORY Baso Absolute 0.0 [...] Absolute 0.01 0.00 - 0.04 x10(3)/ L [facility] Blood 07/08/2023 11:5 6 AM EST 07/08/2023 12:02 PM EST Narrative Resulting Agency Comment Spec In Lab Minh [facility] HEMATOLOGY ORDERABLE S Performing Organization Address City/State/[facility] Co de Phone Number [facility] [place] [address] * (ABNORMAL) Hemogram (07/08/2023 11:56 AM EST) White Blood Cell 4.6 4.0 - 9.5 x10(3)/ L [facility] Red Blood Cell 3.34(L) 4.00 - 5.21 x10(6)/mc L [facility] Hemoglobin 11.0(L) 11.7 - 15.5 g/dL [facility] Hematocrit 33.2(L) 35.7 - 45.8 % [facility] Mean Cell Volume 99.4(H) 82.6 - 94.4 fL [facility] Mean Cell Hemoglobin 32.9(H) 27.1 - 32.0 pg [facility] Mean Cell Hemoglobin Concentration 33.1 31.7 - 35.0 g/dL [facility] Platelet 166 145 - 357 x10(3)/mc L [facility] RDW Standard Deviation 47.1(H) 37.0 - 46.0 fL [facility] RDW coefficient of variation 13.0 11.5 - 14.1 % [facility] Mean Platelet Volume 9.0 7.6 - 12.9 fL [facility] NRBC% auto 0.0 % [facility] H[facility] ITAL [facility] NRBC Absolute 0.000 0.000 - 0.000 x10(3)/mc L [facility] Blood 07/08/2023 11:5 6 AM EST 07/08/2023 12:02 PM EST Narrative Resulting Agency Comment Spec In Lab Minh [facility] HEMATOLOGY ORDERABLE S [facility] [place] [address] * (ABNORMAL) Comprehensive metabolic panel (non-fasting) (07/08/2023 11:56 AM EST) Glucose 93 65 - 199 mg/dL [facility] Comment:Diabetes: >=200 mg/d L plus symptoms Blood Urea Nitrogen 19(H) 8 - 18 mg/dL [facility] Creatinine 0.81 0.70 - 1.20 mg/dL [facility] Sodium 142 135 [...] LABORATORY Calcium 10.2 8.5 - 10.5 mg/dL [facility] Protein, Total 7.4 6.1 - 8.0 g/dL [facility] Albumin 4.1 3.2 - 5.2 g/dL [facility] Aspartate Aminotransferase 24 0 - 30 unit/L [facility] Alanine Aminotransferase 12 0 - 30 unit/L [facility] Alkaline Phosphatase 93 35 [...] [facility] Co de Phone Number [facility] [place] [address] documented in this encounter Visit Diagnoses Diagnosis S/P TAVR (transcatheter aortic valve replacement) Severe aortic stenosis Aortic valve disorders documented in this encounter Care Teams Santa'S Helper Relationship Specialty Start Date End Date Magdalena Acosta MD [address] [place] [address] PCP - General Family Medicine 02/05/23 documented as of this encounter
--- OUTSIDE RECORDS SUMMARY | 2024-06-22 14:11 | XMS_ITS | Encounter Summary ---
Author Organization [facility] Address [facility] [place] [address] Care Team Providers Care Bite Block Maker Name Role Phone Magdalena Acosta MD Primary Care Provider [phone] Encounter Details Date Type Department Care Team [...] EST Office Visit Hematology [place] [address] Markel Borjas MD [facility] [address] [place] [address] 11/02/2024 12:00 PM EDT Appointment [place] [address] 11/02/2024 1:00 PM EDT Office [place] [address] Magdalena Peralta MD [facility] [place] [address] 03/01/2025 4:15 PM EDT Office Visit Dermatology at [place] [address] [facility] [place] [address] Marek Bonilla MD [address], [address] [place] [address] documented as of this encounter Visit Diagnoses Not on filedocumented in this encounter Care Teams Bite Block Maker Relationship Specialty Start Date End Date Magdalena Acosta MD [address] [place] [address] PCP - General Family Medicine 02/05/23 documented as of this encounter
--- OUTSIDE RECORDS SUMMARY | 2024-06-22 14:11 | XMS_ITS | Encounter Summary ---
Author Organization [facility] [place] [address] Care Team Providers Care Jig Bore Operator Name Role Phone Magdalena Acosta MD Primary Care Provider [phone] Reason for Referral * Diagnostic Test (Routine) - New Request Specialty Diagnoses / Procedures Referred By Contac t Referred To Contact Cardiology Diagnoses S/P TAVR (transcatheter aortic valve replacement) Procedures Echocardiogram Transthoracic Antelmo Sharma MD [facility] [place] [address] [facility] [place] [address] Referral ID Status Reason Start Date Expiration Date Visits Requested Visits Authorized [id number] New Request Specialty Service Requested 12/16/2023 12/15/2024 1 1 Encounter Details Date Type Department Care Team (Late st Contact Info) Description 12/16/2023 Orders Only Cardiology at [address] [address] Antelmo Sharma MD [facility] [place] [address] S/P TAVR (transcatheter aortic valve [...] Visit Hematology and Oncology at [place] [phone] Markel Borjas MD [facility] [address] [place] [address] 11/02/2024 12:00 PM EDT Appointment Pulmonology at [place] [address] 11/02/2024 1:00 PM EDT Office Visit Rheumatology at [place] [address] Magdalena Peralta MD [facility] [place] [address] 03/01/2025 4:15 PM EDT Office Visit Dermatology at [place] [address] [facility] [place] [address] Marek Bonilla MD [address] [facility], [place] [address] Scheduled Orders Name Type Priority Associated Diagnoses Order Schedule Echocardiogram Transthoracic Echocardiography Routine S/P TAVR (transcatheter aortic valve replacement) Expected: 12/16/2023 (Approximate), Expires: 06/17/2024 EKG 12 Lead ECG Routine S/P TAVR (transcatheter aortic valve replacement) Expected: 12/16/2023 (Approximate), Expires: 06/17/2024 documented as of this encounter Visit Diagnoses Diagnosis S/P TAVR (transcatheter aortic valve replacement) documented in this encounter Care Teams Jig Bore Operator Relationship Specialty Start Date End Date Magdalena Acosta MD [address] [place] [address] PCP - General Family Medicine 02/05/23 documented as of this encounter
--- OUTSIDE RECORDS SUMMARY | 2024-06-22 14:12 | XMS_ITS | Encounter Summary ---
Author Organization [place] [id number] Care Team Providers Care Rabbler Name Role Phone Magdalena Acosta MD Primary Care Provider [phone] Reason for Visit * Auth/Cert (Routine) Specialty Diagnoses / Procedures Referred By Contac t Referred To Contact Diagnoses Symptomatic severe aortic stenosis with low ejection fraction NSTEMI, CHF Haris Chua MD [facility] CARDIOLOGY [place] [id number] [facility] Referral ID Status Reason Start Date Expiration Date Visits Re quested Visits Authorized [id number] 1 1 Encounter Details Date Type Department Care Team (Late st Contact Info) Description 05/12/2023 7:35 AM EDT Anesthesia Event [place] [address] Lynda Mcgowan MD [facility] [place] [address] Alie Park MD [facility] [place] [address] Anesthesia Record Procedure Summary Procedure Name Responsible [...] cephalic vein (lateral side of arm), left; qzzr-[id number] catheter system; Anatomical Landmarks; US Not Used; [...] removed per policy, catheter intact; 05/13/23; 195405/12/23 003 by Noreen Deutsch RN 05/13/231954 by Antelmo Cardenas RN (RETIRED) Percutaneous Central Line - Single Lumen 05/12/23; 0030; internal jugular vein, right; introducer; 05/15/23; 18405/12/23 0030 by Noreen Deutsch RN 05/15/23 184 by Luis Felipe Parra RN LDA Cath/EP Sheath 05/12/23; 0733; 14 Armenian (Fr); Right; Femoral; Arterial 05/12/23 0733 by Guerda Bender, RN 05/12/23 0830 by Guerda Bender RN LDA Cath/EP Sheath 05/12/23; 0734; 6 Armenian (Fr); Right; Femoral; Venous 05/12/23 0734 by Guerda Bender RN 05/12/23 0817 by Guerda Bender RN LDA Cath/EP Sheath 05/12/23; 0734; 7 Armenian (Fr); Left; Femoral; Arterial 05/12/23 0734 by Guerda Bender, RN 05/12/23 0837 by Guerda Bender RN LDA Cath/EP Sheath 05/12/23; 0734; 6 Armenian (Fr); Left; Femoral; Venous 05/12/23 0734 by [...] 05/12/23 0957 by Alicia Emanuel RN 05/13/23 1456 by Joya Reed RN documented in this [...] Procedure Summary Date: 05/12/23 Room / Location: IT SYSTEMS MANAGER [address] [place] [address] CATH LABS Anesthesia Start: 734 Anesthesia Stop: [...] All Anesthesia Providers: Anesthesiologist: Lynda Mcgowan MD Storage Garage Attendant: Nico Graham MD Vitals Value Taken Time [...] 5.6) performed by Nitesh Escobedo MD at [facility] CATH LABS ??? PRO AORTOPLAS FOR SUPRAVALV STEN N/A 09/21/2016 @AORTOPLASTY FOR SUPRAVALVULAR STENOSIS (WRVU 29.33) performed by Alirio Esparza MD at [facility] MAIN OR ??? PRO REPLACEMENT PROSTHETIC AORTIC VALVE OPEN W CARDIOPULMONARY BYPASS HOMOGRF/STENT N/A 09/21/2016 @REPLACE AORTIC VALVE, OPEN, W\CPB, W\PROSTHETIC VALVE (WRVU 41.32) performed by Alirio Esparza MD at [facility] MAIN OR Social History Tobacco [...] 3 general, with a(n) intravenous induction Add-on tjfym-co-hqzbu TAVR. In cardiogenic shock. Has arterial line, [...] Visit Hematology [place] [address] Markel Borjas MD [facility] [address] [place] [address] 11/02/2024 12:00 PM EDT Appointment [place] [address] 11/02/2024 1:00 PM EDT Office [place] [address] Magdalena Peralta MD [facility] [place] [address] 03/01/2025 4:15 PM EDT Office Visit Dermatology at [address] [place] [address] Marek Bonilla MD [address] [place] [address] documented as of this encounter Visit Diagnoses [...] mL/hr documented in this encounter Care Teams Rabbler Relationship Specialty Start Date End Date Magdalena Acosta MD [address] [place] [address] PCP - General Family Medicine 02/05/23 documented as of this encounter
--- OUTSIDE RECORDS SUMMARY | 2024-06-22 14:12 | XMS_ITS | Encounter Summary ---
Author Organization [facility] Address [place] [address] Care Team Providers Care Publicity Writer Name Role Phone Magdalena Acosta MD Primary Care Provider [phone] Reason for Referral * Diagnostic Test (Routine) - Closed Specialty Diagnoses / Procedures Referred By Contac t Referred To Contact Cardiology Diagnoses S/P TAVR (transcatheter aortic valve replacement) Procedures Echocardiogram Transthoracic Vinod Juárez PA [facility] [place] [address] [facility] [place] [address] Referral ID Status Reason Start Date Expiration Date V isits Requested Visits Authorized [id number] Closed Specialty Service Requested 05/22/2023 05/21/2024 1 1 * Home Health Care (Routine) - Closed Specialty Diagnoses / Procedures Referred By Contac t Referred To Contact Diagnoses S/P TAVR (transcatheter aortic valve replacement) Alirio Hudson MD [facility] CARDIOTHORACIC SURGERY [address] [facility] & [address] [place] [address] Referral ID Status Reason Start Date Expiration Date V isits Requested Visits Authorized [id number] Closed Consult, Test & Treat 05/22/2023 11/18/2023 999 999 * Consultation (Routine) - Closed Specialty Diagnoses / Procedures Referred By Crispin maxwell Referred To Contact Cardiology Diagnoses S/P TAVR (transcatheter aortic valve replacement) Alirio Hudson MD [facility] [place] [address] Cardiac Rehab, [address] [place] [address] Referral ID Status Reason Start Date Expiration Date V isits Requested Visits Authorized [id number] Closed Consult, Test & Treat 05/22/2023 11/18/2023 36 36 * Diagnostic Test (Routine) - Closed Specialty Diagnoses / Procedures Referred By Crispin maxwell Referred To Contact Cardiology Diagnoses Aortic valve stenosis, etiology of cardiac valve disease unspecified Procedures Echocardiogram Transthoracic Transesophageal Echocardiogram (YUSRA) Radha Hollins MD [facility] [place] [address] [facility] [place] [address] Referral ID Status Reason Start Date Expiration Date V isits Requested Visits Authorized [id number] Closed Specialty Service Requested 05/11/2023 05/10/2024 1 1 Reason for Visit * Auth/Cert (Routine) Specialty Diagnoses / Procedures Referred By Crispin maxwell Referred To Contact Diagnoses Symptomatic severe aortic stenosis with low ejection fraction NSTEMI, CHF Enrique Chua MD [facility] [place] [address] [facility] Referral ID Status Reason Start Date Expiration Date Visits Re quested Visits Authorized [id number] 1 1 Encounter Details Date Type Department Care Team (Latest Contact Info) Description 05/08/2023 9:14 AM EDT - 05/22/2023 10:46 AM EDT Hospital Encounter Heart and Vascular Unit Level 4 [place] [address] Enrique Chua MD [facility] [place] [address] Juan Luis Gonzalez MD [facility] [place] [address] Radha Hollins MD [facility] [place] [address] Alirio Hudson MD S/P TAVR (transcatheter aortic valve replacement) (Primary Dx); Aortic valve stenosis, etiology of cardiac valve disease unspecified; Symptomatic severe aortic stenosis with low ejection fraction; Heart failure with reduced ejection fraction due to heart valve disease; Mild coronary artery disease by [facility] 11/09/2022; Mixed connective tissue [...] with PCP, Magdalena Acosta MD, or Primary Mission Support Specialist, Maria Luz Mejia MD, in ~ 7-10 days. Patient to follow up with Glass Cutter, Dr. Antelmo Sharma, in 2 weeks with an EKG, Echo, CBC, and CMP. Patient to follow up with Nephrology, their office to arrange. Lntj-Lpuqmb-eh interval: After initial 30 day follow-up appointment , all TAVR patients will follow-up again in one year with an echo. Inpatient Provider Contact Information: [facility] Section of Cardiac Surgery 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 [...] and she was brought to the director geophysical laboratory the following morning where Drs. Alirio Hudson [...] if you have questions. Please call your Glass Cutter's office if you have any discharge or drainage from your procedural sites. Your Glass Cutter, Dr. Antelmo Sharma and/or the International Trade Manager may be reached at . Antibiotic prophylaxis: You will need to take antibiotics prior to many invasive tests and treatments, such as dental cleaning, which should be done every 6 months. Your primary care physician or your dentist can prescribe this medication. Please refer to the card with the [place] [employer] Guidelines for more information. You have been provided with a copy of this card. Please refer to the [place] [employer] Guidelines for more information. Good [...] friends, go to a movie, go to gnosticist, etc. Heavy activities: No hunting, skiing, jogging, [...] should resume a low fat, low cholesterol, [place] [employer] Diet Driving: No restrictions. Shower/Bath: You may shower daily. No baths, soaking, or swimming for the first week. Wound care: Wash the sites daily with soap and rinse well, pat dry. Assess for any signs of infection such as increased redness, pain, warmth or drainage. Please call your floor technician's office if you have any discharge or drainage from your procedural sites. If there is a lot of swelling, apply mamta wraps during the day and remove at bedtime. Elevate your legs when you are sitting. Home oxygen therapy: N/A Follow up appointments: Please schedule a follow-up appointment with your PCP, Magdalena Acosta MD, or Primary Mission Support Specialist in ~ 7-10 days. You have a follow-up appointment with your Glass Cutter, Dr. Antelmo Sharma, in 2 weeks with an EKG, Echo, and labs prior to your appointment. You will need follow-up with Nephrology, their office will arrange. Ldbl-Pivftd-hq interval: After initial 30 day follow-up appointment , all TAVR patients will follow-up again in one year with an echo. Cardiac Rehabilitation: Purnima Thacker was seen today regarding participation in the outpatient Phase 2 Cardiac Rehabilitation at [facility]. The patient agrees to a referral to this program. The referral will be sent at discharge and the patient should be contacted by the Program within 1- 2 weeks from discharge. Future Appointments and Orders Future Appointments and Orders Future Appointments Provider Department Dept Phone 07/29/2023 11:00 AM Magdalena Peralta MD [facility] at [facility] Arrive at: Shelter Case Manager Area 5C [phone] 02/11/2024 2:00 PM Marek Bonilla MD Dermatology at [place] Arrive at: [facility] [address] [phone] Future Orders Complete By Expires Type and Screen Future Surgery, [facility] SAME DAY PROGRAM ONLY) [LYB0781 Custom] 05/11/2023 Process Instructions: This test is intended ONLY for patients with upcoming surgery for testing prior to the day of surgery obtained through the same day program (4V or SDP). For ALL OTHER PATIENTS, order a Type and Screen (QAY744) This order includes the physician order for an ABO Recheck if requested by the Blood Bank. Scheduling Instructions: Comments: Questions: Date of surgery: CBC (with Diff) [TAE527 Custom] 06/05/2023 12/05/2023 Process Instructions: INCLUDES: WBC, RBC, Hgb, Hct, Platelets, RBC Indices and Differential Scheduling Instructions: Comments: Questions: Comprehensive metabolic panel (non-fasting) [LAB17 Custom] 06/05/2023 08/20/2023 Process Instructions: INCLUDES: Calcium, T Protein, Albumin, AST, ALT, Alk Phos, T Bili, BUN, Creat, GFR, Glucose, Lytes. Scheduling Instructions: Comments: Questions: Echocardiogram Transthoracic [50848 CPT(R)] 06/05/2023 12/05/2023 Process Instructions: Scheduling Instructions: Questions: Where will study be performed?: [facility] Does the patient have Congenital Heart Disease?: Does patient require sedation?: GA rationale: EKG 12 Lead [21921 CPT(R)] 06/05/2023 12/05/2023 Process Instructions: Scheduling Instructions: Questions: Which location will this be performed?: [place] Is a rhythm strip needed?: No [facility] [employer] [EQ161 Custom] As directed Process Instructions: Scheduling Instructions: Questions: Device Needed: WALKER (E0143) Patient Height (cm): 154.9 cm (5' 0.98) Patient Weight: 75.4 kg (166 lb 3.2 oz) Diagnosis: Unsteady gait when walking Referral to Cardiac Rehab [YWQ320 Custom] As directed Process Instructions: If no progress note charted, please enter Clinical details in comments. Scheduling Instructions: Questions: My question or request is: s/p TAVR. Cardiac rehab at [facility]. Referral to Home Health [REF34 Custom] As directed Process Instructions: If no progress note charted, please enter Clinical details in comments. Scheduling Instructions: Comments: DOCUMENTATION FOR VNA SERVICES PATIENT'S LOCATION: Purnima Thacker [address] [place] [phone] (home) Agriculture Internship's Name: Self and brother Raymond In discussion with the attending physician, it is certified that this patient is under his/her careand that MD, or an PROFESSOR OF RHETORIC, EVAPORATOR OPERATOR MOLASSES, or PA who is working directly with him/her, had a vtot-se-dthb encounter that meets the physician yaiv-nr-mxzq encounter requirements with this patient on 05/22/2023. [...] for managing ADLs. HOME HEALTH CARE AGENCY: [facility]. [address] [place] [address] PHONE: [phone] FAX: [phone] Start of care: Ideally 24-48 hours after [...] MD [address] / [facility] [address] All VNA agencies which cover the area of patient's residence have been reviewed, either verbally jaoo writing, and patient has chosen the home health care agency noted. Questions: Disciplines Requested: Physical Therapy Occupational Therapy Discharge References/Attachments None Arrangements for VNA/home care: As above. (delete if no VNA) Signed: EKATERINA NAVARRETE [facility] Section of Cardiac Surgery Date: 05/22/2023 CC: Magdalena Acosta MD Minerva ParkMario Alberto MD [address] [place] [address] documented in this encounter Discharge Instructions * Patient Instructions* Vinod Juárez PA - 05/22/2023 9:32 AM EDT TAVR Discharge Instructions: Call your doctor if: You have a fever of greater than 101 degrees, shaking chills, if you develop redness or drainage from your procedure sites, or if you have questions. Please call your Glass Cutter's office if you have any discharge or drainage from your procedural sites. Your Glass Cutter, Dr. Antelmo Sharma and/or the International Trade Manager may be reached at . Antibiotic prophylaxis: You will need to take antibiotics prior to many invasive tests and treatments, such as dental cleaning, which should be done every 6 months. Your primary care physician or your dentist can prescribe this medication. Please refer to the card with the [place] [employer] Guidelines for more information. You have been provided with a copy of this card. Please refer to the [place] [employer] Guidelines for more information. Good [...] friends, go to a movie, go to gnosticist, etc. Heavy activities: No hunting, skiing, jogging, [...] should resume a low fat, low cholesterol, [place] [employer] Diet Driving: No restrictions. Shower/Bath: You may shower daily. No baths, soaking, or swimming for the first week. Wound care: Wash the sites daily with soap and rinse well, pat dry. Assess for any signs of infection such as increased redness, pain, warmth or drainage. Please call your floor technician's office if you have any discharge or drainage from your procedural sites. If there is a lot of swelling, apply mamta wraps during the day and remove at bedtime. Elevate your legs when you are sitting. Home oxygen therapy: N/A Follow up appointments: Please schedule a follow-up appointment with your PCP, Magdalena Acosta MD, or Primary Mission Support Specialist in ~ 7-10 days. You have a follow-up appointment with your Glass Cutter, Dr. Antelmo Sharma, in 2 weeks with an EKG, Echo, and labs prior to your appointment. You will need follow-up with Nephrology, their office will arrange. Romv-Kunkka-gz interval: After initial 30 day follow-up appointment , all TAVR patients will follow-up again in one year with an echo. Cardiac Rehabilitation: Purnima Thacker was seen today regarding participation in the outpatient Phase 2 Cardiac Rehabilitation at [facility]. The patient agrees to a [...] ins ( tef) Haven Ba, PT Pager: [phone] Physical Therapy Inpatient Rehabilitation Department * Nico [...] 0600 and on the weekends please page [phone]. * Jory Paniagua - 05/20/2023 3:52 PM [...] vomiting Last Bowel Movement: 05/20/23 Jory Paniagua Special Tester * Tong Mike, OT - 05/20/2023 3:16 [...] S&I N/A 11/09/2022 CORONARY ANGIOGRAPHY; [facility],POSSIBLE PCI (WRVU 5.6) performed [...] steps to enter. DME: none used INSURANCE SALESPERSON Baseline ADL/Mobility: Independent with ADLs and IADLs. [...] Vision & Perception: corrective lenses time study analyst Communication: WFL Range of motion, strength, [...] Discharge planning. Total Minutes, Occupational Therapy: 28 ([id number]) OT Evaluation Code Rationale: Diagnosis & Pertinent Co-Morbidities affecting Plan of Care: see PMHx Occupational Profile & Client History: Brief Expanded Extensive x Assessment of Occupational Performance: 1-3 performance deficits 3-5 performance deficits x 5 + performance deficits Clinical Decision Making: Low Moderate High x Clinical decision making of moderate complexity using standardized patient assessment instrument and measurable assessment of functional outcome. Pager: [phone] TONG MIKE OT 05/20/2023 Occupational Therapy Rehabilitation [...] 0600 and on the weekends please page [phone]. * Rylie Rodriguez MD - 05/19/2023 3:59 [...] and plan. Cynthia Blackburn MD Nephrology Pager: [phone] * Diana Espino - 05/19/2023 1:49 PM EDT Correspondence Representative Encounter Note Patient Name: Purnima Thacker : [id number] MR#: [id number] Admit Date: 05/08/2023 9:14 AM Hospital Day [...] as stated. Total Minutes, Physical Therapy: 38 ([phone]) Henrik Navarrete, INSURANCE SALESPERSON Pager: [phone] Physical Therapy Inpatient Rehabilitation Department * Nico [...] 0600 and on the weekends please page [phone]. * Laure Ricks PA - 05/19/2023 7:56 [...] Ricks PA-C Interventional Radiology IR Team Pager [phone] * Consuelo Espinoza RN - 05/18/2023 4:13 PM EDT ANGIO NURSING DATABASE Name: Purnima Thacker Date of : 1955 AGE: 67 y.o. Address: [address] [place] [phone] (home) Mobile: No relevant phone numbers on [...] and plan. Cynthia Blackburn MD Nephrology Pager: [phone] * Magdalena Puri, ACQUISITION PROFESSIONAL - 05/18/2023 10:51 AM EDT Images from the original note were not included. [facility] [place] [address] [address] STRUCTURAL HEART DISEASE CONSULTATION NOTE PRIMARY CARE [...] stenosis. She is now status post TAVR Ycded-ug-Qzqsy with a 23 mm Lai 3 THV 05/12/[address] Sharma. Preliminary findings: Successful right transfemoral TAVR Wfsfz-dm-Mxawq with a 23 mm Lai 3 THV. [...] fraction Mild [facility] [...] stenosis. She is now status post TAVR Szzdm-uf-Ipjnt with a 23 mm Lai 3 THV 05/12/[address] Sharma. Janet TAVR case notable for coronary LAD protective MINNA. Status post TAVR, the patient was transferred to [facility] for pressor and inotropic support. Pressors [...] Magdalena Puri APRN Structural Heart Team Pager [phone] Team Office Please see addendum by Dr. Sharma for final plan and recommendations Associated attestation - Antelmo Sharma MD - 05/19/2023 10:52 PM EDT I have reviewed Magdalena Puri APRN's above history and I agree with the details as written. The assessment and plan were formulated in discussion with me and I agree with them as documented. Antelmo Sharma MD Pager [phone] * Nico Palacios PA - 05/18/2023 8:13 [...] 0600 and on the weekends please page [phone]. * Loli Hernandez, PT - 05/17/2023 5:27 [...] plan as stated. Time IN / OUT: 2636-4932 Total Minutes, Physical Therapy: 54 Billing Code: te-sx2, te-f, gait LOLI HERNANDEZ PT Pager: [phone] Physical Therapy Inpatient Rehabilitation Department * Cynthia [...] Well controlled. Cynthia Blackburn MD Nephrology Pager: [phone] * Maggie Mara, ACQUISITION PROFESSIONAL - 05/17/2023 8:26 AM EDT Cardiac [...] 0600 and on the weekends please page [phone]. * Guerda Del Valle - 05/16/2023 10:44 AM EDT Nutrition Services Note - Low Nutrition Acuity Purnima Thacker is a 67 y.o. female Reason for intervention: hospital day 9 Nutrition Plan: Continue diet order Encourage good PO Lasix and Zofran noted Added special serve: open containers Monitor weight Patient scheduled for a hospital day 9 nutrition evaluation. Fieldwork Coordinator met with pt at bedside. Pt reports that her appetite and PO has much improved since admission. Denies nausea/vomiting or trouble chewing/swallowing. Fieldwork Coordinator provided snack list but pt not interested in adding snacks at this time. Her only concern was that she is worried that she will eat too much which will cause too much pressure in her stomach. Fieldwork Coordinator assured pt and suggested eating smaller but [...] Last Bowel Movement: 05/10/23 Guerda Del Valle Special Tester * Vinod Juárez PA - 05/16/2023 10:19 [...] 0600 and on the weekends please page [phone]. * Michael Jeffers MD - 05/16/2023 8:11 AM EDT Images from the original note were not included. Hypertension-Nephrology Inpatient Follow-up Purnima Thacker [id number] 1955 ID: 67 y.o. old female seen [...] IRONSAT 12 (L) 05/16/2023 SFOLATE >20.0 07/03/2022 [id number] 07/03/2022 Lab Results Component Value Date [...] Dr. Ayoub. Please contact me at phone: [phone] or pager: [phone] with any questions. Michael Jeffers MD Nephrology [...] -Nephrology consulted, labs and renal US ordered -[place] removed, ambulated around the unit -bilateral pleural [...] on the weekends please page [phone]. * Hortencia Cody MD - 05/15/2023 2:07 [...] not included. Hypertension-Nephrology Inpatient Follow-up Purnima Thacker [id number] 1955 ID: 67 y.o. old female seen [...] HGB 7.8 (L) 05/13/2023 SFOLATE >20.0 07/03/2022 [id number] 07/03/2022 Lab Results Component Value Date [...] Dr. Ayoub. Please contact me at phone: [phone] or pager: [phone] with any questions. Michael Jeffers MD Nephrology [...] last 720 hours. T/L/D Art ETT CVL Errol ASSESSMENT, MANAGEMENT, and DECISION MAKIN y.o. female [...] outlined inthis evaluation. HAVEN BA, PT Pager: [phone] Physical Therapy Inpatient Rehabilitation Department Time IN / OUT: 4773-7067 Total time: Total Minutes, Physical Therapy: 30 [...] 0600 and on the weekends please page [phone]. * Antelmo Sharma MD - 05/14/2023 7:56 AM EDT Images from the original note were not included. [facility] [place] [phone] STRUCTURAL HEART DISEASE CONSULTATION NOTE PRIMARY CARE [...] stenosis. She is now status post TAVR Pxpjs-im-Pkjgt with a 23 mm Lai 3 THV 05/12/[address] Sharma. Preliminary findings: Successful right transfemoral TAVR Osmhe-vi-Iepmy with a 23 mm Lai 3 THV. [...] fraction Mild coronary [facility] disease [facility] [...] stenosis. She is now status post TAVR Rlrks-nt-Chkva with a 23 mm Lai 3 THV 05/12/[address] Sharma. Janet TAVR case notable for coronary LAD protective MINNA. Status post TAVR, the patient was transferred to [facility] for pressor and inotropic support. Pressors [...] 30 days with echo, CBC, and BMP Broyd Kaplan APRN Structural Heart Team Pager [phone] Team Office Please see addendum by Dr. [...] exposure. Nephrology consultationtoday. Antelmo Sharma MD Pager [phone] * Antelmo Cardenas RN - 05/14/2023 5:18 AM EDT Pt AOx4, complaining of mild/moderate generalized pain (states her Meloxicam is effective at home) currently refusing prn oxycodone. NAEON, hemodynamically stable on Milrinone, Maps >65, ST in ant496's down to NSR with frequent multifocal PVC's. [...] the original note were not included. [facility] [place] [address] [address] STRUCTURAL HEART DISEASE PROGRESS NOTE PRIMARY CARE PROVIDER: Magdalena Acosta MD REFERRING PROVIDER: Mario Albetro Chin REASON FOR CONSULTATION: Bioprosthetic aortic valve [...] stenosis. She is now status post TAVR Fsbyn-ni-Taykb with a 23 mm Lai 3 THV 05/12/[address] Sharma. Preliminary findings: Successful right transfemoral TAVR Kmuxg-wg-Fgldu with a 23 mm Lai 3 THV. [...] or perforation. Interval Events: - Transferred to [facility] post- TAVR for pressor/inotropic support (Levo, [...] fraction Mild [facility] disease [facility] [...] stenosis. She is now status post TAVR Gtnnw-si-Ugmxi with a 23 mm Lai 3 THV [...] Brody Kaplan APRN Structural Heart Team Pager [phone] Team Office Please see addendum by Dr. [...] DAPT moving forward. Antelmo Sharma MD Pager [phone] * Bonita Miguel PA - 05/13/2023 8:30 AM EDT Cardiac Surgery Progress Note Purnima Thacker is a 67 y.o. 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 PMH of s/p tissue AVR (2017), mixed connective tissue disease HTN, HLD, NICOLAS, diverticulosis, rosacea, essential tremor, and depression. 24h Events: From director geophysical laboratory for above procedure Extubated at ~1600 to [...] soft b/l, no evidence of hematoma. Tubes/Lines/Drains: [place], RIJ, A-line, Art, PIV Assessment/Plan: 67 y.o. [...] 0600 and on the weekends please page [phone]. * Onelia Schwartz MD - 05/12/2023 1:44 [...] fraction Mild coronary [facility] disease [facility] [...] FiO2 weaned to 40%. 1105: ABG 7.34/42/73/22 3591-6071: SBT performed and passed on these settings [...] PCP: Magdalena Acosta MD PCP phone number: [phone] Date of Admission: 05/08/2023 ( Hospital Day [...] 1447 PHART -- 7.34* 7.34* -- -- KOK9ZLE -- 30* 30* -- -- PO2ART -- 72* 81* -- -- AQX8ZEY -- 16.0* 15.7* -- -- LACTATEVEN 2.4* 2.7* 2.7* 4.8* 2.9* VBG (Venous Blood Gas) Recent Labs 05/12/23 0700 05/12/23 0318 05/12/2310505/11/23193905/11/23 1447 LACTATEVEN 2.4* 2.7* 2.7* 4.8* 2.9* Mixed Venous Sat Recent Labs 05/12/23 0508 05/12/23 0321 05/12/23 0114 05/12/23 0030 [id number] 30.7 32.7 37.3 25.1 Objective: Vitals Last [...] questions please contact the health day care worker that requested your imaging first. Electronically signed by: ALIX RUVALCABA MD, [facility] ([phone]), at 05/10/2023 1:[address] Cardiac for [...] questions please contact the health day care worker that requested your imaging first. Electronically signed by: Cullen Narayanan MD, [facility] ([phone]), at 05/11/2023 4:[address] Angiogram Abdomen [...] questions please contact the health day care worker that requested your imaging first. Chest [...] questions please contact the health day care worker that requested your imaging first. Chest [...] questions please contact the health day care worker that requested your imaging first. Assessment [...] and inotrope. She is planned for a wbkae-ky-ubmzb TAVR this morning, which should hopefully improve [...] FACP, FACC Section of Cardiovascular Medicine [facility] International Marketing Internsnuff blender [facility] * Noreen [...] fraction Mild coronary artery disease by [facility] [...] 05/11/2023 4:11 PM EDT Reported off to TEST DEVELOPMENT ENGINEER and pt transferred over in the bed for higher level of care. * Antelmo Sharma MD - 05/11/2023 9:45 AM EDT Images from the original note were not included. Formerly [facility] [place] [id number] STRUCTURAL HEART DISEASE CONSULTATION NOTE PRIMARY CARE [...] who had been referred for possible TAVR wylfq-ry-hqmqr evaluation. Her primary symptoms are of dyspnea [...] [facility]. 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 She [...] fraction Mild coronary artery disease by [facility] [...] tablet 12.5 mg 12.5 mg Oral Daily Bejnamin Green MD 12.5 mg at 05/11/23 0834 [...] to lab [facility] Result Value Ref Range Lactate WB 3.1 (H) 0.5 - 2.2 mmol/L Heparin (unfractionated) Level Result Value Ref Range Heparin UFH Level 0.46 IU/mL Lactate, whole blood, send to lab ([facility]) Result Value Ref [...] leads Confirmed by MD Harshil, Enrique Bell ([id number]) on 05/10/2023 8:11:46 AM Cardiac Cath 11/09/2022 [...] alert Dr. Hudson of her inpatient status, [place] primary cardiac surgeon. Based on recent clinic visit, tentative plan had been for TAVR JANET ferrera given her chronological age. Cardiac cath 11/09/2022 notable for non-obstructive coronary disease. TAVR CTAs planned for today. Will review her case with cardiac surgery to determine best timing and therapies for her valve intervention. Addendum 05/11/2023 6:48 PM Due to decompensating HFrEF, she was transferred to [facility] this afternoon for further management. TAVR CT imaging support for adequate ileofemoral access. Given her acute deterioration today, will planfor RTF TAVR on 05/12/2023. Brody KaplanANURAG Structural Heart Disease Pager [phone] Please see addendum by Dr. Sharma for [...] signed and dated. Antelmo Sharma MD Pager [phone] * Harini Lance MD - 05/11/2023 6:06 AM EDT Images from the original note were not included. Cardiology Progress Note Patient info: Name: Purnima Thacker : 1955 PCP: Mgadalena Acosta MD PCP phone number: [phone] Date of Admission: 05/08/2023 ( Hospital Day [...] questions please contact the health day care worker that requested your imaging first. Electronically signed by: ALIX RUVALCABA MD, [facility] ([phone]), at 05/10/2023 1:25 PM TTE: 05/08 -Left [...] 09/2016) Mild coronary artery disease by [facility] 11/09/2022 Hyperlipidemia, unspecified NICOLAS [...] PCP: Magdalena Acosta MD PCP phone number: [phone] Date of Admission: 05/08/2023 ( Hospital Day [...] 09/2016) Mild coronary artery disease by [facility] 11/09/2022 Hyperlipidemia, unspecified NICOLAS [...] PCP: Magdalena Acosta MD PCP phone number: [phone] Date of Admission: 05/08/2023 ( Hospital Day [...] Gas) No results found for: PHART, PO2ART, PNB2CGT, JOS2XGL Microbiology: Microbiology Results (Last 30 days) No [...] 09/2016) Mild coronary artery disease by [facility] 11/09/2022 Hyperlipidemia, unspecified NICOLAS [...] S&I N/A 11/09/2022 CORONARY ANGIOGRAPHY; W [facility],POSSIBLE PCI (WRVU 5.6) performed [...] Surgical History: Procedure Laterality Date PRG CATH PLNY LEFT HEART CATH & ARTS W/INJ & ANGIO IMG S&I N/A 11/09/2022 CORONARY ANGIOGRAPHY; W [facility],POSSIBLE PCI (WRVU 5.6) performed [...] days, which prompted her to present to [facility]. She also endorses some intermittent retrosternal chest pain with exertion.She endorses some dizziness with exertion, but has not gotten faint or passed out. At [facility] she was noted to be afebrile, blood pressure 105/64, HR 120s, satting 95% on 2L NC. Labs from [facility] are below, of note she [...] 89/59, which prompted the transfer to us. [facility] labs: CBC - Hgb 10.5 CMP - Cr 1.1 BNP 29372 HsTrop 1358 Lactate 1.6 D-dimer 1183 Interval History Patient was admitted to [facility] due to concern on low BP [...] Klaudia Reid MD Internal Medicine PGY-1 Pager [phone], M1-S1 Service Associated attestation - Juan Luis Gonzalez MD - 05/08/2023 10:00 PM EDT Cardiology Attending Addendum Active Hospital Problems Diagnosis Symptomatic severe aortic stenosis with low ejection fraction Heart failure with reduced ejection fraction due to heart valve disease Mild coronary artery disease by [facility] 11/09/2022 Hyperlipidemia, unspecified History of aortic valve replacement Resolved Hospital Problems No resolved problems to display. I have interviewed and examined the patient, reviewed the available data, and have discussed my findings, assessment and plan with the patient and the team on admission to S2 service (from [facility] service) today. I agree with Dr. [...] PCP: Magdalena Acosta MD PCP phone number: [phone] Date of Admission: 05/08/2023 ( Hospital Day 0 days ) Attending:Enrique Chua MD ID: Purnima Thacker is a 67 y.o. female w/ PMH of s/p bioprosthetic AVR in 2016 with recent concern for severe restenosis, HTN, HLD, mixed connective tissue disease, who presents in transfer from [facility] with worsening BONILLA and weight [...] four days, which promptedher to present to [employer]. She also endorses some intermittent retrosternal chest pain with exertion. She endorses some dizziness with exertion, but has not gotten faint or passed out. At [facility] she was noted to be afebrile, blood pressure 105/64, HR 120s, satting 95% on 2L NC. Labs from [facility] are below, of note she [...] 89/59, which prompted the transfer to us. [facility] labs: CBC - Hgb 10.5 CMP - Cr 1.1 BNP 61768 HsTrop 1358 Lactate 1.6 D-dimer 1183 Vasoactive [...] tissue disease, who [facility] and weight gain [...] Lincoln Sal MD Internal Medicine, PGY-1 Cardiology [facility] #[id number] 05/08/23 12:06 PM Cardiology Staff [...] to the planned procedure. Hand Hygiene: The partition setter did perform hand hygiene prior to arterial [...] Successful arterial line placement. Crispin Timmons MD International Trade Manager Associated attestation - Onelia Schwartz MD [...] (flow was non-pulsatile) and appearance of blood. [place] catheter was placed and locked at 55 [...] information for follow-up [facility] [place] [address] [place] [address] Cardiac Rehab, [facility] [address] [place] [address] [place] [address] [facility], [place] [address] [place] [address] Transportation: family or friend will provide *Brother [...] Type: *No Product type* / Secondary Insurance: [employer] [place] Prescription Coverage: Yes This plan was formulated with input from patient, family (please identify family/friend involved ifapplicable) and team. All are in agreement with plan. Aliza Martino MSN-Ed, RN ACM strategic consultant Office of Care Management Pager #[phone] * Plan of Care - Favian Mckeon [...] Chaudhary RN - 05/21/2023 4:46 PM EDTSummary: [facility] referral OFFICE OF CARE MANAGEMENT [...] Type: *No Product type* / Secondary Insurance: [employer] [facility] Last Physical Therapy Recommendation: (Home [...] geographic area. They have requested referrals to: [facility] [address] [place] [id number] [facility] [place] Note routed to a Experience Design Director who will communicate referrals to facilities and provide any required information. Transportation: family or friend will provide *Brother Raymond on Tuesday 05/22 at 1000 Barriers to discharge: Does not have home 22/02 assist available until tomorrow Tuesday 05/22 Plan going forward: Discharge home into the 22/02 home care of brother Raymond with [facility] and [facility] PT/OT services on Tuesday 05/22 [...] Attending: All Staff: Staff Role Juanita Almaguer Router Machine Operator Laure Ricks PA Physician Explosive Operator Magdalena Rodriguez product development coordinator Nurse Consuelo Espinoza RN Radiology Nurse Post-operative [...] Type: *No Product type* / Secondary Insurance: [employer] [place] Last Physical Therapy Recommendation: alf facility, [...] Office of Care Management letter from the Export Specialist pertaining to rehab referrals. provide a [...] for referral. They have requested referrals to: [facility] [address] [place] [address] [facility] ([facility]) [address] [place] [address] (Accepts pts only after exhausting all other local SNF options) [facility] ([facility]) ([facility]) [address] [place] [address] PHONE: [phone] FAX: [phone] [facility] [place] ([facility]) [facility]) [address] [place] [address] PHONE: [phone] FAX: [phone] Note routed to a Experience Design Director who will communicate referrals to facilities [...] the outpatient Phase 2 Cardiac Rehabilitation at [facility]. The patient agrees to a [...] in her course. She ultimately underwent a xkxxm-yg-jzotd procedure on and tolerated it well (see [...] 1423 05/12/23 1105 PHART 7.39 7.37 7.34* ZXZ0FOG 33* 36 42 PO2ART 101 102 73* NDX7OTW 19.5* 20.4 22.1 LACTATEVEN 1.5 1.8 2.8* ZXZ1BBD 40 40 40 PFRATIOART2 252 255 182 VBG (Venous Blood Gas) Recent Labs 05/12/23 1557 05/12/23 1423 05/12/23 1105 LACTATEVEN 1.5 1.8 2.8* Mixed Venous Sat Recent Labs 05/12/23 1425 05/12/23 0508 05/12/23 0321 V5PHXS3 59.9 30.7 32.7 LFT's: Recent Labs 05/14/23 0110 05/13/23 0115 05/12/23 0600 BILITOT 0.4 0.5 0.9 BILIDIR -- 0.3 -- ALBUMIN 3.6 3.0* 3.5 ALKPHOS 86 85 100 ALT 437* 903* 1,174* AST 319* 792* 1,435* No results found for: UPROTCREAT No results found for: TPROTEINPEP, ALBELECT No results found for: MICROALBUR, HQQJ41GNQ No results found for: HA1C Lab Results Component Value Date CALCIUM 8.5 05/14/2023 PHOS 4.7 (H) 05/08/2023 No results found for: 25OHVITD MICROBIOLOGY: ProcedureComponentValueUnitsDate/TimeUrine culture [[id number]]Collected: 05/11/231921Lab Status: Final resultSpecimen: Clean Catch UrineUpdated: [...] consulted for assessment if this patient needs SUB ASSEMBLY TEAM WORKER. Atthis time, we can likely hold off on SUB ASSEMBLY TEAM WORKER. Her volume status appears sufficient and her metabolic kanwal angements with mild acidosis is not too profound. Patient does not have significant uremic symptoms. We can hold off for today, but the patient is a high risk candidate for needing SUB ASSEMBLY TEAM WORKER in future daysespecially if her Cr curve trends the direction it is for the next several days. S/p Ardrr-xr-Fxjcn TF TAVR: Management per cardiology. On milrinone gtt. PLAN: - Please obtain following diagnostics: renal US, urinalysis, urine prot/Cr ratio, urine albumin/Cr ratio, CK, uric acid, serum osmol, daily VBGs - No acute indications for SUB ASSEMBLY TEAM WORKER/dialysis. We will keep close eye on Cr trend, volume status, and metabolics to ensure patient still does not need SUB ASSEMBLY TEAM WORKER as she ensues intrinsic renal recovery [...] M.H.A., M.A. PGY-V Nephrology-Hypertension Fellow Page # [phone] [facility] [address] floor, Shelter Case Manager [address] [place] [address] * Care Management - Mario Alberto Olmos [...] [facility] [place] Plan for discharge is: Home w/o [...] CV at 0945. Was intubated in the director geophysical laboratory due to agitation. Maintained bedrest for 5 [...] Operative Note Patient Name: Purnima Thacker : [id number] MR#: [id number] Case Date: 05/12/2023 Surgeon: Surgeon(s) and Role: [...] procedure Note: Patient Name: Purnima Thacker : [id number] MR#: [id number] Case Date: 05/12/2023 Operators Surgeon: Surgeon(s) and [...] main with 4.0 x 30 mm Resolute [place] Drug Eluting Stent Perclose x1 + Angio-seal 8 Fr x1, RFA Manual pressure, LFA Manual pressure, LFV Endotracheal intubation (performed by cardiac anesthesia) Preliminary findings: Successful right transfemoral TAVR Dwjgw-nj-Mwiaa with a 23 mm Lai 3 THV. [...] MD, M.Sc. Structural Heart Disease Fellow Pager :[phone] Antelmo Sharma MD Pager [phone] * Op Note - Alirio Hudson MD - 05/12/2023 7:37 AM EDT Preop Diagnosis: Severe aortic stenosis, symptomatic. Postop Diagnosis: Same. Procedure: Transfemoral TAVR procedure with 23mm valve. Surgeon: Alirio Hudson M.D. Mission Support Specialist: Danny CULP Procedure: The patient was taken to the director geophysical laboratory. The patient had monitored anesthesia care. 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 Formerly [facility] [place] [address] [place] [address] STRUCTURAL HEART DISEASE CONSULTATION NOTE PRIMARY CARE [...] who had been referred for possible TAVR jkevq-wv-nwmgu evaluation. Her primary symptoms are of dyspnea [...] [facility]. 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 PROBLEM LIST: Patient Active Problem List Diagnosis Symptomatic severe aortic stenosis with low ejection fraction Mild coronary artery disease by [facility] [...] to lab [facility]) Result Value Ref [...] leads Confirmed by MD Harshil, Enrique Bell ([id number]) on 05/10/2023 8:11:46 AM Assessment and Plan: [...] Antelmo Sharma MD Structural Heart Disease Pager [phone] * Plan of Care - Sarahi Nice RN - 05/10/2023 3:55 AM EDTSumcaydeny: RN Note and Care Plan Sarahi Nice RN assumed care of pt at time of their arrival to room 362 from [facility]. Pt voices shortness of breath at [...] Transfer from another hospital Location: admitted from [facility] Reason for Hospitalization: Critical aortic [...] receiving care in [place] must abide by [place] law. The hierarchy [...] (i) The agent with financial power of deputy commonwealth's attorney or a conservator appointed in accordance [...] DME: none Home Address confirmed as: [address] [place] [id number] Social & Family Supports: All names listed below confirmed with patient as current and correct Extended Emergency Contact Information Primary Emergency Contact: Mratha Thacker Relation: Friend Secondary Emergency Contact: Giorgio [...] Type: *No Product type* / Secondary Insurance: [employer] [facility] [place] ONLY if patient has Medicare A&B - Does this patient have secondary insurance?: Yes ; Prescription Coverage: Yes Preferred Pharmacy: updated to [facility] Status: Patient is a : No Primary Care Provider confirmed: Magdalena Acosta MD [phone] Patient/Caregiver Goals of Treatment: Potential Needs for [...] of a 2 story home with 2 [facility]. Patient is independent with ADL's at [...] of care planning. Alie Bradshaw RN, CM Pager-[phone] * Plan of Care - Emily Lucero RN - 05/08/2023 2:54 PM EDT OUTCOME EVALUATION NOTE: OUTCOME SUMMARY: Pt arrived from [facility]. A&O, no c/o pain or [...] EST Office Visit Hematology [place] [phone] Markel Borjas MD [facility] [place] [address] 11/02/2024 12:00 PM EDT Appointment [place] [phone] 11/02/2024 1:00 PM EDT Office [place] [address] Magdalena Peralta MD [facility] [place] [address] 03/01/2025 4:15 PM EDT Office Visit Dermatology at [address] [phone] Mraek Bonilla MD [address], [place] [address] Scheduled Referrals Name Type Priority Associated Diagnoses [...] Heart Cath W/Inj L Ventriculography, Img S&I ([id number]) 05/12/2023 7:37 AM EDT Aortic valve stenosis, [...] EST Narrative 07/08/2023 12:26 PM EST [address] [place] [address] ? Echocardiogram Report Name: PURNIMA THACKER ?Study Date: 07/08/2023 10:31 AMBP: 118/60 mmHg ? Patient Location: 4A : 1955 ? Height: 155 cm ? Account: [id number] Age: 67 yrs ? Weight: 74 kg Gender: Female ?BSA: 1.7 m2 Ordering Physician: ALIRIO HUDSON Referring Physician: VINOD JUÁREZ Performed By: Felicia Norris RDCS Reason For Study: S/P TAVR Exam Location: [facility]. Interpretation Summary Left ventricular systolic [...] no significant change (post-procedure). Procedure Limited - 39442. Doppler - 27251. Color Doppler - 12676. Satisfactory quality. This study is limited because [...] Note Lee Kincaid MD - 07/08/2023 [address] [place] [address] Echocardiogram Report Name: PURNIMA THACKER Study Date: 310:31 AMBP: 118/60 mmHg Patient Location: 4A : 1955 Height: 155 cm Account: [id number] Age: 67 yrs Weight: 74 kg Gender: Female BSA: 1.7 m2 Ordering Physician: ALIRIO HUDSON Referring Physician: VINOD JUÁREZ Performed By: Felicia Norris RDCS Reason For Study: S/P TAVR Exam Location: [facility]. Interpretation Summary Left ventricular systolic [...] is nosignificant change (post-procedure). Procedure Limited - 06300. Doppler - 80944. Color Doppler - 46913. Satisfactoryquality. This study is limited because of [...] LABORATORY Creatinine 0.81 0.70 - 1.20 mg/dL [facility] Sodium 142 135 [...] Lab Alirio Hudson MD CHEMISTRY ORDERABLE S [facility] [place] [address] * (ABNORMAL) Basic Metabolic Panel (non-fasting) (05/22/2023 3:57 AM EDT) Glucose 88 65 - 199 mg/dL [facility] Comment:Diabetes: >=200 mg/d L plus symptoms Blood Urea Nitrogen 21(H) 8 - 18 mg/dL [facility] Creatinine 0.69(L) 0.70 - 1.20 mg/dL [facility] Sodium 136 135 - 145 mmol/L [facility] Potassium 3.6 3.5 - 5.0 mmol/L [facility] Comment: Please note: ??Patients with WBC >100,000 may have falsely elevated Potassium levels. ??For accurate Potassium quantification in these patients send serum separator tube (gold top) for subsequent determinations. ??Contact the Clinical Chemistry Laboratory if there are any questions. Chloride 102 98 - 107 mmol/L [facility] Carbon Dioxide 23 22 - 31 mmol/L [facility] Anion Gap 11 5 - 15 mmol/L [facility] Calcium 8.6 8.5 - 10.5 mg/dL [facility] Est Glomerular Filtration Rate 95 >=60 mL/min/1. 73 m?? [facility] [...] Resulting Agency Comment Spec In Lab Mara Akron ACQUISITION PROFESSIONAL CHEMISTRY ORDERABL ES [facility] [place] [address] * (ABNORMAL) Basic Metabolic Panel (non-fasting) (05/21/2023 5:06 AM EDT) Glucose 87 65 - 199 mg/dL [facility] Comment:Diabetes: >=200 mg/d L plus symptoms Blood Urea Nitrogen 25(H) 8 - 18 mg/dL [facility] Creatinine 0.84 0.70 - 1.20 mg/dL [facility] Sodium 136 135 - 145 mmol/L [facility] Potassium 3.6 3.5 - 5.0 mmol/L [facility] Comment: Please note: ??Patients with WBC >100,000 may have falsely elevated Potassium levels. ??For accurate Potassium quantification in these patients send serum separator tube (gold top) for subsequent determinations. ??Contact the Clinical Chemistry Laboratory if there are any questions. Chloride 102 98 - 107 mmol/L [facility] Carbon Dioxide 26 22 - 31 mmol/L [facility] Anion Gap 8 5 - 15 mmol/L [facility] Calcium 8.9 8.5 - 10.5 mg/dL [facility] Est Glomerular Filtration Rate 76 >=60 mL/min/1. 73 m?? [facility] [...] Narrative Resulting Agency Comment Spec In Lab [facility] ACQUISITION PROFESSIONAL CHEMISTRY ORDERABL ES Performing Organization Address [facility] Co de Phone Number [facility] [place] [address] * Lavender Tube HOLD (05/20/2023 2:52 AM EDT) Lavender Hold Sample in lab. [facility] Blood Venous Draw / Unknown 05/20/2023 2:52 AM EDT 05/20/2023 3:04 AM EDT [facility] ACQUISITION PROFESSIONAL HEMATOLOGY ORDERAB LES Performing Organization Address City/[facility]/ZIP Co de Phone Number [facility] [place] [address] * (ABNORMAL) Basic Metabolic Panel (non-fasting) (05/20/2023 2:52 AM EDT) Glucose 152 65 - 199 mg/dL [facility] Comment:Diabetes: >=200 mg/d L plus symptoms Blood Urea Nitrogen 33(H) 8 - 18 mg/dL [facility] Creatinine 0.82 0.70 - 1.20 mg/dL [facility] Sodium 137 135 - 145 mmol/L [facility] Potassium 3.7 3.5 - 5.0 mmol/L [facility] Comment: Please note: ??Patients with WBC >100,000 may have falsely elevated Potassium levels. ??For accurate Potassium quantification in these patients send serum separator tube (gold top) for subsequent determinations. ??Contact the Clinical Chemistry Laboratory if there are any questions. Chloride 99 98 - 107 mmol/L [facility] Carbon Dioxide 22 22 - 31 mmol/L [facility] Anion Gap 16(H) 5 - 15 mmol/L [facility] Calcium 9.0 8.5 - 10.5 mg/dL [facility] Est Glomerular Filtration Rate 78 >=60 mL/min/1. 73 m?? [facility] [...] Agency Comment Spec In Lab Mara Serrano ACQUISITION PROFESSIONAL CHEMISTRY ORDERABL ES [facility] [place] [address] * (ABNORMAL) Potassium (05/20/2023 2:52 AM EDT) Potassium 3.4(L) 3.5 - 5.0 mmol/L [facility] [...] Agency Comment Spec In Lab Mara Serrano ACQUISITION PROFESSIONAL CHEMISTRY ORDERABL ES [facility] [place] [address] * XR Chest PA & Lateral (Generic) [...] questions please contact the health day care worker that requested your imaging first. [...] have questions please contactthe health day care worker that requested your imaging first. Alirio Hudson MD IMG DX ORDERABLES * (ABNORMAL) Basic Metabolic Panel (non-fasting) (05/19/2023 5:49 AM EDT) Glucose 93 65 - 199 mg/dL [facility] Comment:Diabetes: >=200 mg/d L plus symptoms Blood Urea Nitrogen 45(H) 8 - 18 mg/dL [facility] Creatinine 1.02 0.70 - 1.20 mg/dL [facility] Sodium 138 135 - 145 mmol/L [facility] Potassium 3.9 3.5 - 5.0 mmol/L [facility] Comment: Please note: ??Patients with WBC >100,000 may have falsely elevated Potassium levels. ??For accurate Potassium quantification in these patients send serum separator tube (gold top) for subsequent determinations. ??Contact the Clinical Chemistry Laboratory if there are any questions. Chloride 102 98 - 107 mmol/L [facility] Carbon Dioxide 26 22 - 31 mmol/L [facility] Anion Gap 10 5 - 15 mmol/L [facility] Calcium 9.7 8.5 - 10.5 mg/dL [facility] Est Glomerular Filtration Rate 60 >=60 mL/min/1. 73 m?? [facility] Agency Comment Spec In Lab Mara Serrano ACQUISITION PROFESSIONAL CHEMISTRY ORDERABL ES [facility] [place] [address] * IR Chest Tube Placement Right (05/18/2023 [...] Kristopher Salgado MD 05/18/2023 Alirio Hudson MD [facility] IR ORDERABLES * (ABNORMAL) Basic Metabolic Panel (non-fasting) (05/18/2023 2:54 AM EDT) Glucose 95 65 - 199 mg/dL [facility] Comment:Diabetes: >=200 mg/d L plus symptoms Blood Urea Nitrogen 71(H) 8 - 18 mg/dL [facility] Comment:result rechecked-[facility] Creatinine 1.64(H) 0.70 - 1.20 mg/dL [facility] Comment:result rechecked-[facility] Sodium 137 135 - 145 mmol/L [facility] Potassium 3.7 3.5 - 5.0 mmol/L [facility] Comment: Please note: ??Patients with WBC >100,000 may have falsely elevated Potassium levels. ??For accurate Potassium quantification in these patients send serum separator tube (gold top) for subsequent determinations. ??Contact the Clinical Chemistry Laboratory if there are any questions. Chloride 100 98 - 107 mmol/L [facility] Carbon Dioxide 24 22 - 31 mmol/L [facility] Anion Gap 13 5 - 15 mmol/L [facility] Calcium 9.7 8.5 - 10.5 mg/dL [facility] Est Glomerular Filtration Rate 34(L) >=60 mL/min/1. 73 m?? [facility] Agency Comment Spec In Lab Mara Maggie ACQUISITION PROFESSIONAL CHEMISTRY ORDERABL ES [facility] [place] [address] * XR Chest PA & Lateral (Generic) [...] questions please contact the health day care worker that requested your imaging first. ? Electronically signed by: Ghassan Reyes MD, [facility] ??([phone]), at 05/17/2023 11:46 AM Narrative 05/17/2023 11:46 [...] have questions please contactthe health day care worker that requested your imaging first. Alirio Hudson MD IMG DX ORDERABLES * (ABNORMAL) Comprehensive metabolic panel (non-fasting) (05/17/2023 4:35 AM EDT) Glucose 89 65 - 199 mg/dL [facility] Comment:Diabetes: >=200 mg/d L plus symptoms Blood Urea Nitrogen 97(H) 8 - 18 mg/dL [facility] Creatinine 2.97(H) 0.70 - 1.20 mg/dL [facility] Comment:result rechecked-JSJ Sodium 135 135 - 145 mmol/L [facility] Potassium 4.1 3.5 - 5.0 mmol/L [facility] Comment: Please note: ??Patients with WBC >100,000 may have falsely elevated Potassium levels. ??For accurate Potassium quantification in these patients send serum separator tube (gold top) for subsequent determinations. ??Contact the Clinical Chemistry Laboratory if there are any questions. Chloride 97(L) 98 - 107 mmol/L [facility] Carbon Dioxide 22 22 - 31 mmol/L [facility] Anion Gap 16(H) 5 - 15 mmol/L [facility] Calcium 9.6 8.5 - 10.5 mg/dL [facility] Protein, Total 6.5 6.1 - 8.0 g/dL [facility] Albumin 3.7 3.2 - 5.2 g/dL [facility] Aspartate Aminotransferase 58(H) 0 - 30 unit/L [facility] Alanine Aminotransferase 66(H) 0 - 30 unit/L [facility] Alkaline Phosphatase 86 35 - 105 unit/L [facility] Bilirubin, Total 0.6 0.2 - 1.3 mg/dL [facility] Est Glomerular Filtration Rate 17(L) >=60 mL/min/1. 73 m?? [facility] MD CHEMISTRY ORDERABLE S Performing Organization Address [facility] Co de Phone Number [facility] [place] [address] * Potassium (05/16/2023 11:15 PM EDT) Potassium 3.7 3.5 - 5.0 mmol/L [facility] MD CHEMISTRY ORDERABLE S Performing Organization Address [facility] Co de Phone Number [facility] [place] [address] * Magnesium (05/16/2023 5:22 PM EDT) Pathologist [facility] Magnesium 0.96 0.69 - 1.07 mmol/L [facility] Blood 05/16/2023 5:22 PM EDT 05/16/2023 5:27 PM EDT Narrative Resulting Agency Comment Spec In Lab Alirio Hudson MD CHEMISTRY ORDERABLE S Performing Organization Address [facility] Co de Phone Number [facility] [place] [address] * (ABNORMAL) Basic Metabolic Panel (non-fasting) (05/16/2023 5:22 PM EDT) Glucose 106 65 - 199 mg/dL [facility] Comment:Diabetes: >=200 mg/d L plus symptoms Blood Urea Nitrogen 103(H) 8 - 18 mg/dL [facility] Creatinine 3.91(H) 0.70 - 1.20 mg/dL [facility] Comment:result rechecked-imm Sodium 132(L) 135 - 145 mmol/L [facility] Potassium 3.6 3.5 - 5.0 mmol/L [facility] Comment: Please note: ??Patients with WBC >100,000 may have falsely elevated Potassium levels. ??For accurate Potassium quantification in these patients send serum separator tube (gold top) for subsequent determinations. ??Contact the Clinical Chemistry Laboratory if there are any questions. Chloride 92(L) 98 - 107 mmol/L [facility] Carbon Dioxide 22 22 - 31 mmol/L [facility] Anion Gap 18(H) 5 - 15 mmol/L [facility] Calcium 9.7 8.5 - 10.5 mg/dL [facility] Est Glomerular Filtration Rate 12(L) >=60 mL/min/1. 73 m?? [facility] [...] Lab Alirio Hudson MD CHEMISTRY ORDERABLE S [facility] [place] [address] * (ABNORMAL) Potassium (05/16/2023 11:43 AM EDT) Potassium 3.3(L) 3.5 - 5.0 mmol/L [facility] Lab Alirio Hudson MD CHEMISTRY ORDERABLE S [facility] [place] [address] * (ABNORMAL) Ferritin (05/16/2023 4:41 AM EDT) Pathologist [facility] Ferritin 1,813(H) 30 - 400 ng/mL [facility] Comment: Pediatric reference ranges not verified at [facility], interpret with caution. Reference ranges for females greater than 50 years of age approach values for men, i.e., 30-400 ng/mL. Blood 05/16/2023 4:41 AM EDT 05/16/2023 4:54 AM EDT Narrative Resulting Agency Comment Spec In Lab Kristopher Ayoub MD CHEMISTRY ORDERABLES [facility] [place] [address] * (ABNORMAL) PTH (05/16/2023 4:41 AM EDT) [facility] [address] Parathyroid Hormone 120(H) 15 - 65 pg/mL [facility] Blood 05/16/2023 4:41 AM EDT 05/16/2023 4:54 AM EDT Narrative Resulting Agency Comment Spec In Lab Kristopher Ayoub MD CHEMISTRY ORDERABLES [facility] [place] [address] * Vitamin D, 25-Hydroxy (05/16/2023 4:41 AM EDT) [facility] [address] Vitamin D Total 25 OH 33 21 - 100 ng/mL [facility] Vit D Interp Sufficient [facility] Blood 05/16/2023 4:41 AM EDT 05/16/2023 4:54 AM EDT Narrative Resulting Agency Comment Spec In Lab Kristopher Ayoub MD CHEMISTRY ORDERABLES [facility] [place] [address] * (ABNORMAL) Blood Gas Venous ([facility]) (05/16/2023 4:22 AM EDT) pH, Venous 7.41 7.32 - 7.42 [facility] PCO2, Venous 32(L) 41 - 51 mmHg [facility] PO2, Venous 73(H) 25 - 40 mmHg [facility] Bicarbonate, Venous 19.6 mmol/L [facility] Base Excess, Venous -5.1 mmol/L [facility] Hgb Blood Gas 9.7(L) 11.7 - 15.5 g/dL [facility] Oxyhemoglobin, Venous 92.8 % [facility] Carboxyhemoglob in, Venous 0.1 % [facility] Comment: Nonsmokers: 0.5-1.5% COHB Smokers: Variable, but usually less than 10% Toxic: 20-30% COHB Lethal: Greater than 60% COHB Methemoglobin, Venous 0.3 <=1.5 % [facility] Na Whole Blood 130(L) 135 - 145 mmol/L [facility] K Whole Blood 3.7 3.5 - 5.0 mmol/L [facility] Comment: Please note: Patients with WBC >100,000 may have falsely elevated Potassium levels. Contact the Clinical Chemistry Laboratory if there are any questions. ICa Whole Blood 1.15 1.15 - 1.33 mmol/L [facility] Comment: Note: ??Total bilirubin higher than 20 mg/dL may lead to falsely low ionized calcium. CL Whole Blood 95(L) 98 - 107 mmol/L [facility] Gluc Whole Bld 82 65 - 199 mg/dL [facility] Comment:Diabetes: >=200 mg/d L plus symptoms Lactate WB 1.1 0.5 - 2.2 mmol/L [facility] Blood Gas Source Venous [facility] Blood Venous Draw / Unknown 05/16/2023 4:22 AM EDT 05/16/2023 4:31 AM EDT Narrative Resulting Agency Comment Spec In Lab Bonita TOBAR CHEMISTRY ORDERABLES [facility] [place] [address] * (ABNORMAL) Differential, Automated (05/16/2023 4:20 AM EDT) Neutrophil % 84.1 % [facility] Neutrophil Absolute 6.22(H) 1.70 - 6.10 x10(3)/mc L [facility] Lymph % 5.8 % [facility] Lymphocytes Abs 0.4(L) 0.9 - 3.2 x10(3)/mc L [facility] Monocyte % 8.8 % [facility] Monocyte Abs 0.6 0.3 - 0.9 x10(3)/mc L [facility] Eos % 0.4 % [facility] Eosinophils Abs 0.0 0.0 - 0.4 x10(3)/mc L [facility] Basophil % 0.0 % [facility] Baso Absolute 0.0 0.0 - 0.1 x10(3)/mc L [facility] Immature Gran % 0.90 % [facility] Comment: Immature granulocytes(IG's)percentage and absolute count will include metamyelocytes, myelocytes, and promyelocytes. Blood smears from CBCs yielding IG's will be scanned manually for concordance. If this scan disagrees with the automated IG or if promyelocytes are noted, a manual differential will be performed. Immature Gran Absolute 0.07(H) 0.00 - 0.04 x10(3)/mc L [facility] Blood 05/16/2023 4:20 AM EDT 05/16/2023 4:29 AM EDT Narrative Resulting Agency Comment Spec In Lab James Agustin MD HEMATOLOGY ORDER JODIE Performing Organization Address City/[facility]/ZIP Co de Phone Number [facility] [place] [address] * (ABNORMAL) Hemogram (05/16/2023 4:20 AM EDT) White Blood Cell 7.4 4.0 - 9.5 x10(3)/mc L [facility] Red Blood Cell 2.40(L) 4.00 - 5.21 x10(6)/mc L [facility] Hemoglobin 7.8(L) 11.7 - 15.5 g/dL [facility] Hematocrit 22.5(L) 35.7 - 45.8 % [facility] Mean Cell Volume 93.8 82.6 - 94.4 fL [facility] Mean Cell Hemoglobin 32.5(H) 27.1 - 32.0 pg [facility] Mean Cell Hemoglobin Concentration 34.7 31.7 - 35.0 g/dL [facility] Platelet 120(L) 145 - 357 x10(3)/mc L [facility] RDW Standard Deviation 42.9 37.0 - 46.0 fL [facility] RDW coefficient of variation 12.9 11.5 - 14.1 % [facility] Mean Platelet Volume 11.3 7.6 - 12.9 fL [facility] NRBC% auto 0.7 % [facility] NRBC Absolute 0.050(H) 0.000 - 0.000 x10(3)/ L [facility] Blood 05/16/2023 4:20 AM EDT 05/16/2023 4:29 AM EDT Narrative Resulting Agency Comment Spec In Lab James Agustin MD HEMATOLOGY ORDER JODIE [facility] [place] [address] * (ABNORMAL) Basic Metabolic Panel (non-fasting) (05/16/2023 4:20 AM EDT) Glucose 89 65 - 199 mg/dL [facility] Comment:Diabetes: >=200 mg/d L plus symptoms Blood Urea Nitrogen 108(H) 8 - 18 mg/dL [facility] Creatinine 4.74(H) 0.70 - 1.20 mg/dL [facility] Comment:result rechecked-OLIVA Sodium 132(L) 135 - 145 mmol/L [facility] Potassium 3.9 3.5 - 5.0 mmol/L [facility] Comment: Please note: ??Patients with WBC >100,000 may have falsely elevated Potassium levels. ??For accurate Potassium quantification in these patients send serum separator tube (gold top) for subsequent determinations. ??Contact the Clinical Chemistry Laboratory if there are any questions. Chloride 95(L) 98 - 107 mmol/L [facility] Carbon Dioxide 18(L) 22 - 31 mmol/L [facility] Anion Gap 19(H) 5 - 15 mmol/L [facility] Calcium 9.2 8.5 - 10.5 mg/dL [facility] Est Glomerular Filtration Rate 10(L) >=60 mL/min/1. 73 m?? [facility] Lab Alirio Hudson MD CHEMISTRY ORDERABLE S [facility] [place] [address] * (ABNORMAL) Iron and TIBC (05/16/2023 4:20 AM EDT) Iron 31 30 - 150 mcg/dL [facility] TIBC 259 250 - 450 mcg/dL [facility] Iron Saturation 12(L) 20 - 50 % [facility] Blood 05/16/2023 4:20 AM EDT 05/16/2023 4:29 AM EDT Narrative Resulting Agency Comment Spec In Lab Kristopher Ayoub MD CHEMISTRY ORDERABLES [facility] [place] [address] * (ABNORMAL) Basic Metabolic Panel (non-fasting) (05/15/2023 12:50 AM EDT) Glucose 101 65 - 199 mg/dL [facility] Comment:Diabetes: >=200 mg/d L plus symptoms Blood Urea Nitrogen 109(H) 8 - 18 mg/dL [facility] Creatinine 5.62(H) 0.70 - 1.20 mg/dL [facility] Comment:result rechecked-KS Sodium 131(L) 135 - 145 mmol/L [facility] Comment:result rechecked-KS Potassium 3.7 3.5 - 5.0 mmol/L [facility] Comment: result rechecked-KS Please note: ??Patients with WBC >100,000 may have falsely elevated Potassium levels. ??For accurate Potassium quantification in these patients send serum separator tube (gold top) for subsequent determinations. ??Contact the Clinical Chemistry Laboratory if there are any questions. Chloride 92(L) 98 - 107 mmol/L [facility] Comment:result rechecked-[place] Carbon Dioxide 18(L) 22 - 31 mmol/L [facility] Comment:result rechecked-[place] Anion Gap 21(H) 5 - 15 mmol/L [facility] Calcium 8.9 8.5 - 10.5 mg/dL [facility] Est Glomerular Filtration Rate 8(L) >=60 mL/min/1. 73 m?? [facility]ZIP Co de Phone Number [facility] [place] [address] * (ABNORMAL) Hemogram (05/15/2023 12:50 AM EDT) White Blood Cell 9.1 4.0 - 9.5 x10(3)/mc L [facility] Red Blood Cell 2.19(L) 4.00 - 5.21 x10(6)/mc L [facility] Hemoglobin 7.2(L) 11.7 - 15.5 g/dL [facility] Hematocrit 20.6(L) 35.7 - 45.8 % [facility] Mean Cell Volume 94.1 82.6 - 94.4 fL [facility] Mean Cell Hemoglobin 32.9(H) 27.1 - 32.0 pg [facility] Mean Cell Hemoglobin Concentration 35.0 31.7 - 35.0 g/dL [facility] Platelet 109(L) 145 - 357 x10(3)/mc L [facility] RDW Standard Deviation 43.6 37.0 - 46.0 fL [facility] RDW coefficient of variation 12.9 11.5 - 14.1 % [facility] Mean Platelet Volume 10.4 7.6 - 12.9 fL [facility] NRBC% auto 2.1 % [facility] NRBC Absolute 0.190(H) 0.000 - 0.000 x10(3)/mc L [facility] Blood 05/15/2023 12:5 0 AM EDT 05/15/2023 12:52 AM EDT Narrative Resulting Agency Comment Spec In Lab Alirio Hudson MD HEMATOLOGY ORDERABL ES Performing Organization Address [facility] Co de Phone Number [facility] [place] [address] * (ABNORMAL) BLOOD GAS 2 VENOUS (05/15/2023 12:49 AM EDT) pH, Venous 7.33 7.32 - 7.42 [facility] PCO2, Venous 37(L) 41 - 51 mmHg [facility] PO2, Venous 34 25 - 40 mmHg [facility] Bicarbonate, Venous 19.1 mmol/L [facility] Base Excess, Venous -6.8 mmol/L [facility] Hgb Blood Gas 10.8(L) 11.7 - 15.5 g/dL [facility] Oxyhemoglobin, Venous 58.1 % [facility] Carboxyhemoglob in, Venous 0.3 % [facility] Comment: Nonsmokers: 0.5-1.5% COHB Smokers: Variable, [...] Whole Blood 1.12(L) 1.15 - 1.33 mmol/L [facility] Comment: Note: ??Total bilirubin higher than 20 mg/dL may lead to falsely low ionized calcium. CL Whole Blood 95(L) 98 - 107 mmol/L [facility] Gluc Whole Bld 101 65 - 199 mg/dL [facility] Comment:Diabetes: >=200 mg/d L plus symptoms Lactate WB 1.3 0.5 - 2.2 mmol/L [facility] Flow, Mike 1.0 LPM [facility] Blood Gas Source Venous [facility] Blood 05/15/2023 12:4 9 AM EDT 05/15/2023 12:49 AM EDT Alirio Hudson MD POINT OF CARE TEST ORDERABLES [facility] [address] [place] [address] * US Retroperitoneal Complete (05/14/2023 3:53 PM [...] PM Electronically signed by: Hayden Robledo MD, [facility] ([phone]), at 05/14/2023 4:32 PM Thank you for letting us participate in the care of this patient. If you are a health care provider and have any questions regarding this report, please contact the number above. For patients who have questions, please contact the health day care worker that requested your imaging first. ? Hayden Robledo, Staff Physician Electronically Signed Final Report ?? 05/14/2023 04:39 pm Narrative 05/14/2023 4:39 PM EDT Renal ? (Signed Final 05/14/2023 04:39 pm) PATIENT INFO: ID #: ? [id number] ?: ??[birth year] (67 yrs)(F) Name: ? PURNIMA Magalie KIRSTIE ?Visit Date: 05/14/2023 03:44 pm PERFORMED BY: Attending: ?Meena CULP, Hayden Stafford Resident: ? Barnacle MD, Anand D. Performed By: ? [place] RDMS, Consuelo Referred By: ?ALIRIO HUDSON Location: ? [place] SERVICE(S) PROVIDED: URETRO - Retroperitoneal Complete - [id number] ? [id number] INDICATIONS: EVANS COMPARISON: CT: Abdomen/Pelvis 05/11/23 RIGHT [...] 05/14/2023 04:39 pm) PATIENT INFO: ID #: [id number] : [birth year] (67 yrs)(F) Name: PURNIMA THACKER Visit Date: 05/14/2023 03:44 pm PERFORMED BY: Attending: Hayden Robledo MD Resident: Anand Camejo MD Performed By: Consuelo Tello RDMS Referred By: ALIRIO HUDSON Location: [place] SERVICE(S) PROVIDED: URETRO - Retroperitoneal Complete - [id number] INDICATIONS: EVANS COMPARISON: CT: Abdomen/Pelvis 05/11/23 RIGHT [...] PM Electronically signed by: Hayden Robledo MD, [facility] ([phone]), at 05/14/2023 4:32 PM Thank you for letting us participate in the care of this patient. If you are a health care provider and have any questions regarding this report, please contact the number above. For patients who have questions, please contact the health day care worker that requested your imaging first. Hayden Robledo, Staff Physician Electronically Signed Final Report 05/14/2023 04:39 pm Alirio Hudson MD IMG US GEN ORDERABL ES * CK (05/14/2023 3:17 PM EDT) Creatine Kinase 123 0 - 160 unit/L [facility] Blood 05/14/2023 3:17 PM EDT 05/14/2023 3:31 PM EDT Narrative Resulting Agency Comment Spec In Lab Alirio Hudson MD CHEMISTRY ORDERABLE S Performing Organization Address [facility] Co de Phone Number [facility] [place] [address] * (ABNORMAL) Uric acid (05/14/2023 3:17 PM EDT) Uric Acid 14.9(H) 2.5 - 6.5 mg/dL [facility] Blood 05/14/2023 3:17 PM EDT 05/14/2023 3:31 PM EDT Narrative Resulting Agency Comment Spec In Lab Alirio Hudson MD CHEMISTRY ORDERABLE S Performing Organization Address [facility] Co de Phone Number [facility] [place] [address] * (ABNORMAL) Osmolality (05/14/2023 3:17 PM EDT) Osmolality 311(H) 275 - 295 mOsm/kg [facility] Blood 05/14/2023 3:17 PM EDT 05/14/2023 3:31 PM EDT Narrative Resulting Agency Comment Spec In Lab Alirio Hudson MD CHEMISTRY ORDERABLE S [facility] [place] [address] * (ABNORMAL) Differential, Automated (05/14/2023 1:10 AM EDT) Neutrophil % 87.2 % [facility] Neutrophil Absolute 9.74(H) 1.70 - 6.10 x10(3)/mc L [facility] Lymph % 3.9 % [facility] Lymphocytes Abs 0.4(L) 0.9 - 3.2 x10(3)/mc L [facility] Monocyte % 7.9 % [facility] [facility] Monocyte Abs 0.9 0.3 - 0.9 x10(3)/mc L [facility] Eos % 0.0 % [facility] Eosinophils Abs 0.0 0.0 - 0.4 x10(3)/mc L [facility] Basophil % 0.1 % [facility] Baso Absolute 0.0 0.0 - 0.1 x10(3)/mc L [facility] Immature Gran % 0.90 % [facility] Comment: Immature granulocytes(IG's)percentage and absolute count will include metamyelocytes, myelocytes, and promyelocytes. Blood smears from CBCs yielding IG's will be scanned manually for concordance. If this scan disagrees with the automated IG or if promyelocytes are noted, a manual differential will be performed. Immature Gran Absolute 0.10(H) 0.00 - 0.04 x10(3)/mc L [facility] Blood 05/14/2023 1:10 AM EDT 05/14/2023 1:24 AM EDT Narrative Resulting Agency Comment Spec In Lab Bonita TOBAR HEMATOLOGY ORDERABLE S [facility] [place] [address] * (ABNORMAL) Hemogram (05/14/2023 1:10 AM EDT) White Blood Cell 11.2(H) 4.0 - 9.5 x10(3)/mc L [facility] Red Blood Cell 2.19(L) 4.00 - 5.21 x10(6)/mc L [facility] Hemoglobin 7.2(L) 11.7 - 15.5 g/dL [facility] Hematocrit 20.3(L) 35.7 - 45.8 % [facility] Mean Cell Volume 92.7 82.6 - 94.4 fL [facility] Mean Cell Hemoglobin 32.9(H) 27.1 - 32.0 pg [facility] Mean Cell Hemoglobin Concentration 35.5(H) 31.7 - 35.0 g/dL [facility] Platelet 112(L) 145 - 357 x10(3)/mc L [facility] RDW Standard Deviation 41.4 37.0 - 46.0 fL [facility] RDW coefficient of variation 12.5 11.5 - 14.1 % [facility] Mean Platelet Volume 10.4 7.6 - 12.9 fL [facility] NRBC% auto 1.5 % [facility] NRBC Absolute 0.170(H) 0.000 - 0.000 x10(3)/mc L [facility] Blood 05/14/2023 1:10 AM EDT 05/14/2023 1:24 AM EDT Narrative Resulting Agency Comment Spec In Lab Bonita TOBAR HEMATOLOGY ORDERABLE S [facility] [place] [address] * (ABNORMAL) Comprehensive metabolic panel (non-fasting) (05/14/2023 1:10 AM EDT) Glucose 120 65 - 199 mg/dL [facility] Comment:Diabetes: >=200 mg/d L plus symptoms Blood Urea Nitrogen 98(H) 8 - 18 mg/dL [facility] Creatinine 4.80(H) 0.70 - 1.20 mg/dL [facility] Comment:result rechecked-ssc Sodium 132(L) 135 - 145 mmol/L [facility] Potassium 4.1 3.5 - 5.0 mmol/L [facility] Comment: Please note: ??Patients with WBC >100,000 may have falsely elevated Potassium levels. ??For accurate Potassium quantification in these patients send serum separator tube (gold top) for subsequent determinations. ??Contact the Clinical Chemistry Laboratory if there are any questions. Chloride 94(L) 98 - 107 mmol/L [facility] Carbon Dioxide 18(L) 22 - 31 mmol/L [facility] Anion Gap 20(H) 5 - 15 mmol/L [facility] Calcium 8.5 8.5 - 10.5 mg/dL [facility] Protein, Total 5.8(L) 6.1 - 8.0 g/dL [facility] Albumin 3.6 3.2 - 5.2 g/dL [facility] Aspartate Aminotransferase 319(H) 0 - 30 unit/L [facility] Alanine Aminotransferase 437(H) 0 - 30 unit/L [facility] Alkaline Phosphatase 86 35 - 105 unit/L [facility] Bilirubin, Total 0.4 0.2 - 1.3 mg/dL [facility] Est Glomerular Filtration Rate 9(L) >=60 mL/min/1. 73 m?? [facility] MD CHEMISTRY ORDERABLE S Performing Organization Address [facility] Co de Phone Number [facility] [place] [address] * APTT (05/13/2023 10:15 AM EDT) Partial Thromboplastin Time 27 25 - 37 sec [facility] Comment: The PTT is NOT appropriate for heparin monitoring. Use the Anti-Xa level for heparin monitoring (HEP UFH) or LMWH monitoring (HEP LMW). A PTT less than 37 seconds generally indicates adequate hemostasis. Blood 05/13/2023 10:1 5 AM EDT 05/13/2023 10:46 AM EDT Narrative Resulting Agency Comment Spec In Lab Alirio Hudson MD HEMATOLOGY ORDERABL ES Performing Organization Address [facility] Co de Phone Number [facility] [place] [address] * (ABNORMAL) Prothrombin Time (05/13/2023 10:15 AM EDT) Prothrombin Time 14.6(H) 9.4 - 12.5 sec [facility] International Normalization Ratio 1.3 [facility] Comment: An INR <2.0 indicates adequate [...] Comment Spec In Lab Alirio Hduson MD HEMATOLOGY ORDERABL ES Performing Organization Address [facility] Co de Phone Number [facility] [place] [address] * EKG 12 Lead (05/13/2023 9:22 AM EDT) Ventricular rate 92 BPM MUSE SYSTEM Atrial Rate 92 BPM MUSE SYSTEM P-R Interval 140 ms MUSE SYSTEM QRS Duration 104 ms MUSE SYSTEM Q-T Interval 384 ms MUSE SYSTEM QTC Calculated (Bezet) 474 ms MUSE SYSTEM Calculated P Batson 33 degrees MUSE SYSTEM Calculated R Batson 41 degrees MUSE SYSTEM Calculated T Batson -35 degrees MUSE SYSTEM INTERPRETATION Sinus rhythm with frequent Premature ventricular complexes Septal infarct , age undetermined ST & T wave abnormality, consider lateral ischemia Abnormal ECG When compared with ECG of 12-MAY-2023 10:10, Premature ventricular complexes are now Present I personally reviewed the tracing and edited the fellows interpretation Confirmed by fellow MD Anitha, Carissa ([id number]) on 05/13/2023 3:25:30 PM Confirmed by Maxx Best ([id number]) on 05/13/2023 8:30:56 PM MUSE SYSTEM 05/13/2023 9:22 AM EDT 05/13/2023 8:30 PM EDT Alirio Hudson MD ECG ORDERABLES MUSE SYSTEM * (ABNORMAL) Differential, Automated (05/13/2023 1:15 AM EDT) Neutrophil % 88.1 % [facility] Neutrophil Absolute 7.62(H) 1.70 - 6.10 x10(3)/mc L [facility] Lymph % 3.1 % [facility] Lymphocytes Abs 0.3(L) 0.9 - 3.2 x10(3)/mc L [facility] Monocyte % 7.9 % [facility] Monocyte Abs 0.7 0.3 - 0.9 x10(3)/mc L [facility] Eos % 0.0 % [facility] Eosinophils Abs 0.0 0.0 - 0.4 x10(3)/mc L [facility] Basophil % 0.1 % [facility] Baso Absolute 0.0 0.0 - 0.1 x10(3)/mc L [facility] Immature Gran % 0.80 % [facility] Comment: Immature granulocytes(IG's)percentage and absolute count will include metamyelocytes, myelocytes, and promyelocytes. Blood smears from CBCs yielding IG's will be scanned manually for concordance. If this scan disagrees with the automated IG or if promyelocytes are noted, a manual differential will be performed. Immature Gran Absolute 0.07(H) 0.00 - 0.04 x10(3)/mc L [facility] Blood 05/13/2023 1:15 AM EDT 05/13/2023 1:29 AM EDT Narrative Resulting Agency Comment Spec In Lab Lorri TOBAR HEMATOLOGY ORDERABLE S [facility] [place] [address] * (ABNORMAL) Hemogram (05/13/2023 1:15 AM EDT) White Blood Cell 8.6 4.0 - 9.5 x10(3)/mc L [facility] Red Blood Cell 2.37(L) 4.00 - 5.21 x10(6)/mc L [facility] Hemoglobin 7.8(L) 11.7 - 15.5 g/dL [facility] Hematocrit 22.2(L) 35.7 - 45.8 % [facility] Mean Cell Volume 93.7 82.6 - 94.4 fL [facility] Mean Cell Hemoglobin 32.9(H) 27.1 - 32.0 pg [facility] Mean Cell Hemoglobin Concentration 35.1(H) 31.7 - 35.0 g/dL [facility] Platelet 130(L) 145 - 357 x10(3)/mc L [facility] RDW Standard Deviation 41.7 37.0 - 46.0 fL [facility] RDW coefficient of variation 12.5 11.5 - 14.1 % [facility] Mean Platelet Volume 10.2 7.6 - 12.9 fL [facility] NRBC% auto 0.5 % [facility] NRBC Absolute 0.040(H) 0.000 - 0.000 x10(3)/mc L [facility] Blood 05/13/2023 1:15 AM EDT 05/13/2023 1:29 AM EDT Narrative Resulting Agency Comment Spec In Lab Lorri TOBAR HEMATOLOGY ORDERABLE S Performing Organization Address City/[facility]/ZIP Co de Phone Number [facility] [place] [address] * (ABNORMAL) Hepatic Function Panel (05/13/2023 1:15 AM EDT) Protein, Total 5.5(L) 6.1 - 8.0 g/dL [facility] Albumin 3.0(L) 3.2 - 5.2 g/dL [facility] Aspartate Aminotransferase 792(H) 0 - 30 unit/L [facility] Alanine Aminotransferase 903(H) 0 - 30 unit/L [facility] Alkaline Phosphatase 85 35 - 105 unit/L [facility] Bilirubin, Total 0.5 0.2 - 1.3 mg/dL [facility] Bilirubin, Direct 0.3 0.0 - 0.3 mg/dL [facility] Blood 05/13/2023 1:15 AM EDT 05/13/2023 1:29 AM EDT Narrative Resulting Agency Comment Spec In Lab Alirio Hudson MD CHEMISTRY ORDERABLE S Performing Organization Address [facility] Co de Phone Number [facility] [place] [address] * (ABNORMAL) Basic Metabolic Panel (non-fasting) (05/13/2023 1:15 AM EDT) Pathologist [facility] Glucose 107 65 - 199 mg/dL [facility] Comment:Diabetes: >=200 mg/d L plus symptoms Blood Urea Nitrogen 82(H) 8 - 18 mg/dL [facility] Creatinine 3.15(H) 0.70 - 1.20 mg/dL [facility] Comment:result rechecked-OG Sodium 132(L) 135 - 145 mmol/L [facility] Potassium 3.8 3.5 - 5.0 mmol/L [facility] Comment: Please note: ??Patients with WBC >100,000 may have falsely elevated Potassium levels. ??For accurate Potassium quantification in these patients send serum separator tube (gold top) for subsequent determinations. ??Contact the Clinical Chemistry Laboratory if there are any questions. Chloride 95(L) 98 - 107 mmol/L [facility] Carbon Dioxide 20(L) 22 - 31 mmol/L [facility] Anion Gap 17(H) 5 - 15 mmol/L [facility] Calcium 8.3(L) 8.5 - 10.5 mg/dL [facility] Est Glomerular Filtration Rate 16(L) >=60 mL/min/1. 73 m?? [facility] Co de Phone Number [facility] [place] [address] * (ABNORMAL) BLOOD GAS 2 ARTERIAL (05/12/2023 3:57 PM EDT) pH, Arterial 7.39 7.35 - 7.45 [facility] PCO2, Arterial 33(L) 35 - 45 mmHg [facility] PO2, Arterial 101 85 - 104 mmHg [facility] Bicarbonate, Arterial 19.5(L) 20.0 - 26.0 mmol/L [facility] Base Excess, Arterial -5.5(L) -3.0 - 3.0 mmol/L [facility] Hgb Blood Gas 9.8(L) 11.7 - 15.5 g/dL [facility] Oxyhemoglobin, Arterial 95.2 94.0 - 97.0 % [facility] Carboxyhemoglob in, Arterial 0.2 % [facility] Comment: Nonsmokers: 0.5-1.5% COHB Smokers: Variable, but usually less than 10% Toxic: 20-30% COHB Lethal: Greater than 60% COHB Methemoglobin, Arterial 0.8 <=1.5 % [facility] Na Whole Blood 129(L) 135 - 145 mmol/L [facility] K Whole Blood 3.8 3.5 - 5.0 mmol/L [facility] Comment: Please note: Patients with WBC >100,000 may have falsely elevated Potassium levels. Contact the Clinical Chemistry Laboratory if there are any questions. ICa Whole Blood 1.05(L) 1.15 - 1.33 mmol/L [facility] Comment: Note: ??Total bilirubin higher than 20 mg/dL may lead to falsely low ionized calcium. CL Whole Blood 96(L) 98 - 107 mmol/L [facility] Gluc Whole Bld 178 65 - 199 mg/dL [facility] Comment:Diabetes: >=200 mg/d L plus symptoms. Lactate WB 1.5 0.5 - 2.2 mmol/L [facility] FIO2 Art 40 % [facility] PF Ratio Art 252 [facility] Blood 05/12/2023 3:57 PM EDT 05/12/2023 3:57 PM EDT Alirio Hudson MD POINT OF CARE TEST ORDERABLES [facility] [place] [address] * (ABNORMAL) Coox2 (05/12/2023 2:25 PM EDT) pO2, Coox 37 mmHg [facility] Hgb Blood Gas 9.5(L) 11.7 - 15.5 g/dL [facility] Oxyhemoglobin, Coox 59.9 % [facility] Carboxyhemoglo bin, Coox 0.3 % [facility] Comment: Nonsmokers: 0.5-1.5% COHB Smokers: Variable, but usually less than 10% Toxic: 20-30% COHB Lethal: Greater than 60% COHB Methemoglobin, Coox 0.7 <=1.5 % [facility] Source Coox Mixed Venous [facility] Blood 05/12/2023 2:25 PM EDT 05/12/2023 2:25 PM EDT Alirio Hudson MD POINT OF CARE TEST ORDERABLES [facility] [place] [address] * (ABNORMAL) BLOOD GAS 2 ARTERIAL (05/12/2023 2:23 PM EDT) pH, Arterial 7.37 7.35 - 7.45 [facility] PCO2, Arterial 36 35 - 45 mmHg [facility] PO2, Arterial 102 85 - 104 mmHg [facility] Bicarbonate, Arterial 20.4 20.0 - 26.0 mmol/L [facility] Base Excess, Arterial -4.8(L) -3.0 - 3.0 mmol/L [facility] Hgb Blood Gas 12.7 11.7 - 15.5 g/dL [facility] Oxyhemoglobin, Arterial 95.4 94.0 - 97.0 % [facility] Carboxyhemoglob in, Arterial 0.3 % [facility] [...] Whole Blood 1.05(L) 1.15 - 1.33 mmol/L [facility] Comment: Note: ??Total bilirubin higher than 20 mg/dL may lead to falsely low ionized calcium. CL Whole Blood 95(L) 98 - 107 mmol/L [facility] Gluc Whole Bld 168 65 - 199 mg/dL [facility] Comment:Diabetes: >=200 mg/d L plus symptoms. Lactate WB 1.8 0.5 - 2.2 mmol/L [facility] FIO2 Art 40 % [facility] PF Ratio Art 255 [facility] Blood 05/12/2023 2:23 PM EDT 05/12/2023 2:23 PM EDT Alirio Hudson MD POINT OF CARE TEST ORDERABLES Performing Organization Address City/[facility]/[place] [address] * (ABNORMAL) Troponin (05/12/2023 2:05 PM EDT) Troponin-T, High Sensitivity 1,022(H) <=14 ng/L [facility] Comment: This patient's troponin T concentration [...] [facility] Test Catalog Reference: Fourth [place] Definition of Myocardial Infarction. Journal of the [place] [employer] 2018;72:7239-4420 Blood 05/12/2023 2:05 PM EDT 05/12/2023 2:14 PM EDT Narrative Resulting Agency Comment Spec In Lab Alirio Hudson MD CHEMISTRY ORDERABLE S Performing Organization Address City/[facility]/ZIP Co de Phone Number [facility] [place] [address] * (ABNORMAL) Hemoglobin (05/12/2023 2:05 PM EDT) Pathologist [facility] Hemoglobin 8.5(L) 11.7 - 15.5 g/dL [facility] Blood 05/12/2023 2:05 PM EDT 05/12/2023 2:14 PM EDT Narrative Resulting Agency Comment Spec In Lab Alirio Hudson MD HEMATOLOGY ORDERABL ES Performing Organization Address [facility] Co de Phone Number [facility] [place] [address] * Potassium (05/12/2023 2:05 PM EDT) [facility] [address] Potassium 3.9 3.5 - 5.0 mmol/L [facility] MD CHEMISTRY ORDERABLE S Performing Organization Address [facility] Co de Phone Number [facility] [place] [address] * (ABNORMAL) BLOOD GAS 2 ARTERIAL (05/12/2023 11:05 AM EDT) pH, Arterial 7.34(L) 7.35 - 7.45 [facility] PCO2, Arterial 42 35 - 45 mmHg [facility] PO2, Arterial 73(L) 85 - 104 mmHg [facility] Bicarbonate, Arterial 22.1 20.0 - 26.0 mmol/L [facility] Base Excess, Arterial -3.6(L) -3.0 - 3.0 mmol/L [facility] Hgb Blood Gas 9.3(L) 11.7 - 15.5 g/dL [facility] Oxyhemoglobin, Arterial 89.3(L) 94.0 - 97.0 % [facility] Carboxyhemoglob in, Arterial 0.2 % [facility] Comment: Nonsmokers: 0.5-1.5% COHB Smokers: Variable, but usually less than 10% Toxic: 20-30% COHB Lethal: Greater than 60% COHB Methemoglobin, Arterial 0.9 <=1.5 % [facility] Na Whole Blood 131(L) 135 - 145 mmol/L [facility] K Whole Blood 3.8 3.5 - 5.0 mmol/L [facility] Comment: Please note: Patients with WBC >100,000 may have falsely elevated Potassium levels. Contact the Clinical Chemistry Laboratory if there are any questions. ICa Whole Blood 1.04(L) 1.15 - 1.33 mmol/L [facility] Comment: Note: ??Total bilirubin higher than 20 mg/dL may lead to falsely low ionized calcium. CL Whole Blood 96(L) 98 - 107 mmol/L [facility] Gluc Whole Bld 152 65 - 199 mg/dL [facility] Comment:Diabetes: >=200 mg/d L plus symptoms. [...] HEALTH CARE SERVICES Co de Phone Number [facility] [place] [address] * (ABNORMAL) BLOOD GAS 2 ARTERIAL (05/12/2023 10:14 AM EDT) pH, Arterial 7.18(Criti gabrielle) 7.35 - 7.45 [facility] Comment:Noted by instrument maintenance supervisor. PCO2, Arterial 45 35 - 45 mmHg [facility] PO2, Arterial 186(H) 85 - 104 mmHg [facility] Bicarbonate, Arterial 16.2(L) 20.0 - 26.0 mmol/L [facility] Base Excess, Arterial -12.2(L) -3.0 - 3.0 mmol/L [facility] Hgb Blood Gas 10.0(L) 11.7 - 15.5 g/dL [facility] Oxyhemoglobin, Arterial 97.0 94.0 - 97.0 % [facility] Carboxyhemoglob in, Arterial 0.2 % [facility] Comment: Nonsmokers: 0.5-1.5% COHB Smokers: Variable, but usually less than 10% Toxic: 20-30% COHB Lethal: Greater than 60% COHB Methemoglobin, Arterial 0.9 <=1.5 % [facility] Na Whole Blood 129(L) 135 - 145 mmol/L [facility] K Whole Blood 3.6 3.5 - 5.0 mmol/L [facility] Comment: Please note: Patients with WBC >100,000 may have falsely elevated Potassium levels. Contact the Clinical Chemistry Laboratory if there are any questions. ICa Whole Blood 1.10(L) 1.15 - 1.33 mmol/L [facility] Comment: Note: ??Total bilirubin higher than 20 mg/dL may lead to falsely low ionized calcium. CL Whole Blood 97(L) 98 - 107 mmol/L [facility] Gluc Whole Bld 161 65 - 199 mg/dL [facility] Comment:Diabetes: >=200 mg/d L plus symptoms. Lactate WB 3.3(H) 0.5 - 2.2 mmol/L [facility] FIO2 Art 100 % [facility] PF Ratio Art 186 [facility] Blood 05/12/2023 10:1 4 AM EDT 05/12/2023 10:14 AM EDT Alirio Hudson MD POINT OF CARE TEST ORDERABLES [facility] [place] [address] * EKG 12 Lead (05/12/2023 10:10 AM EDT) Ventricular rate 116 BPM MUSE SYSTEM Atrial Rate 116 BPM MUSE SYSTEM P-R Interval 158 ms MUSE SYSTEM QRS Duration 114 ms MUSE SYSTEM Q-T Interval 348 ms MUSE SYSTEM QTC Calculated (Bezet) 483 ms MUSE SYSTEM Calculated P Batson 37 degrees MUSE SYSTEM Calculated R Batson 31 degrees MUSE SYSTEM Calculated T Batson -138 degrees MUSE SYSTEM INTERPRETATION Sinus tachycardia with intermittent aberrant ventricular conduction Possible Left atrial enlargement Incomplete left bundle block Left ventricular hypertrophy with repolarization abnormality ( Sokolow-Orozco , [place] product ) ST & T wave abnormality in Inferolateral leads Abnormal ECG When compared with ECG of 10-MAY-2023 13:16, ST & T wave abnormality is more pronounced in inferolateral leads I personally reviewed the tracing and edited the fellows interpretation Confirmed by fellow MD Anuja, Jim ([id number]) on 05/12/2023 1:04:20 PM Confirmed by MD Mono, Eleni ([id number]) on 05/12/2023 9:28:34 PM MUSE SYSTEM 05/12/2023 [...] questions please contact the health day care worker that requested your imaging first. ? Electronically signed by: Chyna Johnson MD, [facility] ??([phone]), at 05/12/2023 10:08 AM Narrative 05/12/2023 10:08 AM EDT EXAMINATION: XR CHEST ONE VIEW CLINICAL HISTORY: Post TAVR TECHNIQUE: 1 view of the chest COMPARISON: Chest radiograph from earlier today FINDINGS: Interval placement of endotracheal tube with tip terminating 2 cm above the shira. Interval placement of enteric tube projecting along the expected course of the esophagus and outside the [id number]. Interval retraction of right IJ approach pulmonary [...] expected course ofthe esophagus and outside the [id number]. Interval retraction of right IJ approach pulmonary [...] have questions please contactthe health day care worker that requested your imaging first. Alirio Hudson MD IMG DX ORDERABLES * ECHO LMTD W/O CONTRAST W LMTD SPEC DOPP COLOR DOPP (05/12/2023 9:23 AM EDT) EF 20 [employer] SYSTEM Anatomical Region Laterality Modality Cardiac Other 05/12/2023 7:33 AM EDT Narrative 05/12/2023 10:18 AM EDT ? Echocardiogram Report Name: PURNIMA THACKER ?Study Date: 05/12/2023 07:33 AMBP: 96/63 mmHg ? Patient Location: [place] CA06 A : 1955 ? Height: 154 cm ? Account: [id number] Age: 67 yrs ? Weight: 75 kg Gender: Female ?BSA: 1.7 m2 Ordering Physician: RADHA HOLLINS Referring Physician: RADHA HOLLINS Performed By: Dilma Bee RDCS Reason For Study: Guidance for TAVR procedure Exam Location: [facility]. Interpretation Summary PRE TAVR: There is [...] mL/m2. POST TAVR: Normal function of the xpxkh-ie-hrylp prosthesis. See below for hemodynamic parameters. Slight improvement in left and right ventricular systolic function. LVEF now 20-25%. No pericardial effusion. See report for additional findings. Procedure Limited - 97897. Doppler - 78863. Color Doppler - 38780. Left Ventricle Left ventricle is of normal [...] 307:33 AMBP: 96/63 mmHg Patient Location: [address] : 1955 Height: 154 cm Account: [id number] Age: 67 yrs Weight: 75 kg Gender: Female BSA: 1.7 m2 Ordering Physician: RADHA HOLLINS Referring Physician: RADHA HOLLINS Performed By: Dilma Bee RDCS Reason For Study: Guidance for TAVR procedure Exam Location: [facility]. Interpretation Summary PRE TAVR: There is [...] 28mL/m2. POST TAVR: Normal function of the uumas-jy-hiaqy prosthesis. See belowfor hemodynamic parameters. Slight improvement in left and right ventricularsystolic function. LVEF now 20-25%. No pericardial effusion. See report for additional findings. Procedure Limited - 86408. Doppler - 61097. Color Doppler - 07564. Left Ventricle Left ventricle is of normal [...] ? Procedure Date: 05/12/2023 ? A #: [id number] ? Primary Physician: Antelmo Sharma ? Case #: [id number] ? File Name: [id number] ? Catheterization Order Number: [id number] ? [facility] ? Final Report [place], [place] ? Patient Name: ? Purnima M. Kirstie ? ID#: ?[id number] ? : ?1955 ? Procedure Date: ? May 12, 2023 ? Case #: ? [id number] ? Room: ? 6 ? Case [...] Device Deployment ?* Temporary Pacemaker Insertion In Manager Of Care ?* Endotracheal Intubation By Non-Cath Physician ?* [...] ??A premounted 4.00 x 30 mm Nils Wilsall (MINNA) was ? deployed with a maximum [...] calculated STS risk score was 30.1%. A ulcrb-wn-oicru ?procedure was performed on the pre-existing bioprosthetic stented ?prosthesis. The priority of the zrqdi-tk-gvvdm procedure was Elective. ?The procedure was performed [...] Lai 3 Ultra RESILIA 23 mm THV (s/z=[id number]) transcatheter ?valve was inserted using standard technique. [...] nor was it given in the ?director geophysical laboratory. ?Recommended anti-platelet/anti-thrombotic regimen: ?Continue aspirin 81 mg [...] regimen. ? Comments: ?Successful right transfemoral TAVR Vkxfs-gb-Rigcb with a 23 mm Lai 3 ?THV. [...] access site angiography, ?temporary pacemaker in director geophysical laboratory, intubation-non cath physician, vascular ?closure device, transthoracic echo ??and TAVR. Dr. Alirio Hudson M.D. ?performed the left heart catheterization, access site angiography, ?temporary pacemaker in director geophysical laboratory, vascular closure device, transthoracic ?echo , TAVR [...] Purnima ThackerKaylie Procedure Date: 05/12/2023 A #: [id number] Primary Physician: Antelmo Sharma Case #: [id number] File Name: [id number] Catheterization Order Number: [id number] [facility] [place], [place] Patient Name: Purnima Thacker ID#:[id number] :1955 Procedure Date: May 12, 2023 Case #: [id number] Room: 6 Case Physicians: Antelmo Sharma M.D. Start: 08:03 Alirio Hudson M.D. Admission:05/08/2023 Lynda Mcgowan M.D. Discharge:05/22/2023 Fellow: Rebekah Tejeda M.D. Referring Physician: Mario Alberto Chin M.D. Procedures: * Coronary Angiography * Left Heart Catheterization * Coronary Stent Insertion * Transcatheter Aortic Valve Replacement * Vascular Closure Device Deployment * Temporary Pacemaker Insertion In Manager Of Care * Endotracheal Intubation By Non-Cath Physician * [...] guide. A premounted 4.00 x 30 mm Pavo Wilsall (MINNA) was deployed with a maximum inflation [...] calculated STS risk score was 30.1%. A iinec-bf-dfvjf procedure was performed on the pre-existing bioprosthetic stented prosthesis. The priority of the xnjkv-nc-txeur procedure wasElective. The procedure was performed under Moderate sedation performed byLynda Mcgowan M.D. (see anesthesia report for additional details). Alirio Hudson M.D. participated in the case (see Cardiac Surgery reportfor additional details). The TAVR sheath was a 14 Fr Corona eSheath Introducer and theaccess site was femoral. Rapid ventricular pacing was performed. An Corona Lai 3 Ultra RESILIA 23 mm THV (s/m=[id number])transcatheter valve was inserted using standard technique. The [...] to nor was it given inthe director geophysical laboratory. Recommended anti-platelet/anti-thrombotic regimen: Continue aspirin 81 mg [...] this regimen. Comments: Successful right transfemoral TAVR Nfvjh-kw-Vosha with a 23 mmSapien 3 THV. We [...] access site angiography, temporary pacemaker in director geophysical laboratory, intubation-non cath physician,vascular closure device, transthoracic echo and TAVR. Dr. Alirio Hudson M.D. performed the left heart catheterization, access site angiography, temporary pacemaker in director geophysical laboratory, vascular closure device,transthoracic echo , TAVR and CPR during cath. Dr. Lynda Mcgowan M.D. performed theABG, anesthesia and intubation-non cath physician. Antelmo Sharma M.D. Electronically Signed by: Atnelmo Sharma M.D. Report Finalized: 05/12/2023 14:31 Report Last Ammended: 07/01/2023 11:30 Antelmo Sharma MD CARDIAC CATH ORDERAB LES * (ABNORMAL) Point of Care Blood Gas Historical (05/12/2023 8:50 AM EDT) pH, POC 7.20(Crit ical) 7.35 - 7.45 [facility] Comment:Critical value OK, C C Lab. pCO2, POC 42 35 - 45 mmHg [facility] pO2, POC 260(H) 85 - 104 mmHg [facility] Base Excess, POC -11.0(L) -3.0 - 3.0 mmol/L [facility] Bicarbonate, POC 16.7(L) 20.0 - 26.0 mmol/L [facility] Sodium, POC 129(L) 135 - 145 mmol/L [facility] POC Potassium 3.8 3.5 - 5.0 mmol/L [facility] Ionized Calcium, POC 1.12(L) 1.15 - 1.33 mmol/L [facility] POC Hematocrit 23.0(L) 34.0 - 45.0 % [facility] POC Calc Hgb 7.8(L) 11.2 - 15.7 g/dL [facility] Comment:The calculation of h emoglobin from hematocrit assumes a normal MCHC. POC Bgas Loc CC Lab [facility] Blood 05/12/2023 8:50 AM EDT 05/13/2023 12:00 PM EDT Alirio Hudson MD CHEMISTRY ORDERABLE S [facility] [place] [address] * (ABNORMAL) Point of Care Blood Gas Historical (05/12/2023 8:10 AM EDT) pH, POC 7.27(Crit ical) 7.35 - 7.45 [facility] Comment:Critical value Yamel KRAUSE C Lab. pCO2, POC 37 35 - 45 mmHg [facility] pO2, POC 29(Critic al) 85 - 104 mmHg [facility] Comment:Critical value JIMI C C Lab. Base Excess, POC -10.0(L) -3.0 - 3.0 mmol/L [facility] Bicarbonate, POC 16.7(L) 20.0 - 26.0 mmol/L [facility] Sodium, POC 123(L) 135 - 145 mmol/L [facility] POC Potassium 4.0 3.5 - 5.0 mmol/L [facility] Ionized Calcium, POC 1.12(L) 1.15 - 1.33 mmol/L [facility] POC Hematocrit 27.0(L) 34.0 - 45.0 % [facility] POC Calc Hgb 9.2(L) 11.2 - 15.7 g/dL [facility] Comment:The calculation of h emoglobin from hematocrit assumes a normal MCHC. POC Bgas Loc CC Lab [facility] Blood 05/12/2023 8:10 AM EDT 05/13/2023 12:00 PM EDT Alirio Hudson MD CHEMISTRY ORDERABLE S Performing Organization Address City/[facility]/ZIP Co de Phone Number [facility] [place] [address] * (ABNORMAL) Lactate, whole blood, [place] lab [place] (05/12/2023 7:00 AM EDT) Lactate WB 2.4(H) 0.5 - 2.2 mmol/L [facility] Blood 05/12/2023 7:00 AM EDT 05/12/2023 7:09 AM EDT Narrative Resulting Agency Comment Spec In Lab Radha Hollins MD CHEMISTRY ORDERABL ES Performing Organization Address [facility] Co de Phone Number [facility] [place] [address] * (ABNORMAL) Comprehensive metabolic panel (non-fasting) (05/12/2023 6:00 AM EDT) Glucose 167 65 - 199 mg/dL [facility] Comment:Diabetes: >=200 mg/d L plus symptoms Blood Urea Nitrogen 67(H) 8 - 18 mg/dL [facility] Creatinine 2.01(H) 0.70 - 1.20 mg/dL [facility] Sodium 131(L) 135 - 145 mmol/L [facility] Potassium 4.3 3.5 - 5.0 mmol/L [facility] Comment: Please note: ??Patients with WBC >100,000 may have falsely elevated Potassium levels. ??For accurate Potassium quantification in these patients send serum separator tube (gold top) for subsequent determinations. ??Contact the Clinical Chemistry Laboratory if there are any questions. Chloride 97(L) 98 - 107 mmol/L [facility] Carbon Dioxide 14(L) 22 - 31 mmol/L [facility] Anion Gap 20(H) 5 - 15 mmol/L [facility] Calcium 8.6 8.5 - 10.5 mg/dL [facility] Protein, Total 6.3 6.1 - 8.0 g/dL [facility] Albumin 3.5 3.2 - 5.2 g/dL [facility] Aspartate Aminotransferase 1,435(H) 0 - 30 unit/L [facility] Alanine Aminotransferase 1,174(H) 0 - 30 unit/L [facility] Alkaline Phosphatase 100 35 - 105 unit/L [facility] Bilirubin, Total 0.9 0.2 - 1.3 mg/dL [facility] Est Glomerular Filtration Rate 27(L) >=60 mL/min/1. 73 m?? [facility] Lab Radha Hollins MD CHEMISTRY ORDERABL ES [facility] [place] [address] * (ABNORMAL) Coox2 (05/12/2023 5:08 AM EDT) pO2, Coox 24 mmHg [facility] Hgb Blood Gas 10.4(L) 11.7 - 15.5 g/dL [facility] Oxyhemoglobin, Coox 30.7 % [facility] Carboxyhemoglo bin, Coox 0.3 % [facility] Comment: Nonsmokers: 0.5-1.5% COHB Smokers: Variable, but usually less than 10% Toxic: 20-30% COHB Lethal: Greater than 60% COHB Methemoglobin, Coox 0.8 <=1.5 % [facility] Source Coox Mixed Venous [facility] Blood 05/12/2023 5:08 AM EDT 05/12/2023 5:08 AM EDT Radha Hollins MD POINT OF CARE TEST ORDERABLES [facility] [place] [address] * (ABNORMAL) Coox2 (05/12/2023 3:21 AM EDT) pO2, Coox 25 mmHg [facility] Hgb Blood Gas 10.8(L) 11.7 - 15.5 g/dL [facility] Oxyhemoglobin, Coox 32.7 % [facility] Carboxyhemoglo bin, Coox 0.3 % [facility] Comment: Nonsmokers: 0.5-1.5% COHB Smokers: Variable, but usually less than 10% Toxic: 20-30% COHB Lethal: Greater than 60% COHB Methemoglobin, Coox 0.7 <=1.5 % [facility] Source Coox Mixed Venous [facility] Blood 05/12/2023 3:21 AM EDT 05/12/2023 3:21 AM EDT Radha Hollins MD POINT OF CARE TEST ORDERABLES [facility] [place] [address] * (ABNORMAL) BLOOD GAS 2 ARTERIAL (05/12/2023 3:18 AM EDT) pH, Arterial 7.34(L) 7.35 - 7.45 [facility] PCO2, Arterial 30(L) 35 - 45 mmHg [facility] PO2, Arterial 72(L) 85 - 104 mmHg [facility] Bicarbonate, Arterial 16.0(L) 20.0 - 26.0 mmol/L [facility] Base Excess, Arterial -9.8(L) -3.0 - 3.0 mmol/L [facility] Hgb Blood Gas 11.0(L) 11.7 - 15.5 g/dL [facility] Oxyhemoglobin, Arterial 89.8(L) 94.0 - 97.0 % [facility] Carboxyhemoglob in, Arterial 0.3 % [facility] Comment: Nonsmokers: 0.5-1.5% COHB Smokers: Variable, but usually less than 10% Toxic: 20-30% COHB Lethal: Greater than 60% COHB Methemoglobin, Arterial 0.7 <=1.5 % [facility] Na Whole Blood 131(L) 135 - 145 mmol/L [facility] K Whole Blood 4.2 3.5 - 5.0 mmol/L [facility] Comment: Please note: Patients with WBC >100,000 may have falsely elevated Potassium levels. Contact the Clinical Chemistry Laboratory if there are any questions. ICa Whole Blood 1.12(L) 1.15 - 1.33 mmol/L [facility] Comment: Note: ??Total bilirubin higher than 20 mg/dL may lead to falsely low ionized calcium. CL Whole Blood 100 98 - 107 mmol/L [facility] Gluc Whole Bld 160 65 - 199 mg/dL [facility] Comment:Diabetes: >=200 mg/d L plus symptoms. Lactate WB 2.7(H) 0.5 - 2.2 mmol/L [facility] Flow Art 5.0 LPM [facility] Blood 05/12/2023 3:18 AM EDT 05/12/2023 3:18 AM EDT Radha Hollins MD POINT OF CARE TEST ORDERABLES [facility] [place] [address] * (ABNORMAL) Coox2 (05/12/2023 1:14 AM EDT) pO2, Coox 28 mmHg [facility] Hgb Blood Gas 10.9(L) 11.7 - 15.5 g/dL [facility] Oxyhemoglobin, Coox 37.3 % [facility] Carboxyhemoglo bin, Coox 0.3 % [facility] Comment: Nonsmokers: 0.5-1.5% COHB Smokers: Variable, but usually less than 10% Toxic: 20-30% COHB Lethal: Greater than 60% COHB Methemoglobin, Coox 0.5 <=1.5 % [facility] Source Coox Mixed Venous [facility] Blood 05/12/2023 1:14 AM EDT 05/12/2023 1:14 AM EDT Radha Hollins MD POINT OF CARE TEST ORDERABLES [facility] [place] [address] * (ABNORMAL) BLOOD GAS 2 ARTERIAL (05/12/2023 1:06 AM EDT) pH, Arterial 7.34(L) 7.35 - 7.45 [facility] PCO2, Arterial 30(L) 35 - 45 mmHg [facility] PO2, Arterial 81(L) 85 - 104 mmHg [facility] Bicarbonate, Arterial 15.7(L) 20.0 - 26.0 mmol/L [facility] Base Excess, Arterial -10.1(L) -3.0 - 3.0 mmol/L [facility] Hgb Blood Gas 11.0(L) 11.7 - 15.5 g/dL [facility] Oxyhemoglobin, Arterial 92.3(L) 94.0 - 97.0 % [facility] Carboxyhemoglob in, Arterial 0.2 % [facility] Comment: Nonsmokers: 0.5-1.5% COHB Smokers: Variable, but usually less than 10% Toxic: 20-30% COHB Lethal: Greater than 60% COHB Methemoglobin, Arterial 0.6 <=1.5 % [facility] Na Whole Blood 131(L) 135 - 145 mmol/L [facility] K Whole Blood 4.2 3.5 - 5.0 mmol/L [facility] Comment: Please note: Patients with WBC >100,000 may have falsely elevated Potassium levels. Contact the Clinical Chemistry Laboratory if there are any questions. ICa Whole Blood 1.13(L) 1.15 - 1.33 mmol/L [facility] Comment: Note: ??Total bilirubin higher than 20 mg/dL may lead to falsely low ionized calcium. CL Whole Blood 99 98 - 107 mmol/L [facility] Gluc Whole Bld 132 65 - 199 mg/dL [facility] Comment:Diabetes: >=200 mg/d L plus symptoms. Lactate WB 2.7(H) 0.5 - 2.2 mmol/L [facility] Flow Art 5.0 LPM [facility] Blood 05/12/2023 1:06 AM EDT 05/12/2023 1:06 AM EDT Radha Hollins MD POINT OF CARE TEST ORDERABLES Performing Organization Address City/State/[facility] Co de Phone Number [facility] [place] [address] * (ABNORMAL) Differential, Automated (05/12/2023 1:05 AM EDT) Neutrophil % 83.3 % [facility] Neutrophil Absolute 7.49(H) 1.70 - 6.10 x10(3)/mc L [facility] Lymph % 7.1 % [facility] Lymphocytes Abs 0.6(L) 0.9 - 3.2 x10(3)/mc L [facility] Monocyte % 8.9 % [facility] Monocyte Abs 0.8 0.3 - 0.9 x10(3)/mc L [facility] Eos % 0.0 % [facility] Eosinophils Abs 0.0 0.0 - 0.4 x10(3)/mc L [facility] Basophil % 0.1 % [facility] Baso Absolute 0.0 0.0 - 0.1 x10(3)/mc L [facility] Immature Gran % 0.60 % [facility] Comment: Immature granulocytes(IG's)percentage and absolute count will include metamyelocytes, myelocytes, and promyelocytes. Blood smears from CBCs yielding IG's will be scanned manually for concordance. If this scan disagrees with the automated IG or if promyelocytes are noted, a manual differential will be performed. Immature Gran Absolute 0.05(H) 0.00 - 0.04 x10(3)/mc L [facility] Blood 05/12/2023 1:05 AM EDT 05/12/2023 1:15 AM EDT Narrative Resulting Agency Comment Spec In Lab Gianni Fletcher MD HEMATOLOGY ORDERABLE S [facility] [place] [address] * (ABNORMAL) Hemogram (05/12/2023 1:05 AM EDT) White Blood Cell 9.0 4.0 - 9.5 x10(3)/[facility] Red Blood Cell 3.01(L) 4.00 - 5.21 x10(6)/ L [facility] Hemoglobin 9.8(L) 11.7 - 15.5 g/dL [facility] Hematocrit 28.7(L) 35.7 - 45.8 % [facility] Mean Cell Volume 95.3(H) 82.6 - 94.4 fL [facility] Mean Cell Hemoglobin 32.6(H) 27.1 - 32.0 pg [facility] Mean Cell Hemoglobin Concentration 34.1 31.7 - 35.0 g/dL [facility] Platelet 186 145 - 357 x10(3)/mc L [facility] RDW Standard Deviation 43.7 37.0 - 46.0 fL [facility] RDW coefficient of variation 12.7 11.5 - 14.1 % [facility] Mean Platelet Volume 10.3 7.6 - 12.9 fL [facility] NRBC% auto 0.0 % [facility] NRBC Absolute 0.000 0.000 - 0.000 x10(3)/ L [facility] Blood 05/12/2023 1:05 AM EDT 05/12/2023 1:15 AM EDT Narrative Resulting Agency Comment Spec In Lab Gianni Fletcher MD HEMATOLOGY ORDERABLE S [facility] [place] [address] * (ABNORMAL) Comprehensive metabolic panel (non-fasting) (05/12/2023 1:05 AM EDT) Glucose 141 65 - 199 mg/dL [facility] Comment:Diabetes: >=200 mg/d L plus symptoms Blood Urea Nitrogen 63(H) 8 - 18 mg/dL [facility] Creatinine 1.86(H) 0.70 - 1.20 mg/dL [facility] Sodium 131(L) 135 - 145 mmol/L [facility] Potassium 4.4 3.5 - 5.0 mmol/L [facility] Comment: Please note: ??Patients with WBC >100,000 may have falsely elevated Potassium levels. ??For accurate Potassium quantification in these patients send serum separator tube (gold top) for subsequent determinations. ??Contact the Clinical Chemistry Laboratory if there are any questions. Chloride 96(L) 98 - 107 mmol/L [facility] Carbon Dioxide 14(L) 22 - 31 mmol/L [facility] Anion Gap 21(H) 5 - 15 mmol/L [facility] Calcium 9.0 8.5 - 10.5 mg/dL [facility] Protein, Total 6.6 6.1 - 8.0 g/dL [facility] Albumin 3.9 3.2 - 5.2 g/dL [facility] Aspartate Aminotransferase 1,227(H) 0 - 30 unit/L [facility] Alanine Aminotransferase 1,097(H) 0 - 30 unit/L [facility] Alkaline Phosphatase 108(H) 35 - 105 unit/L [facility] Bilirubin, Total 1.0 0.2 - 1.3 mg/dL [facility] Est Glomerular Filtration Rate 29(L) >=60 mL/min/1. 73 m?? [facility] Radha Hollins MD CHEMISTRY ORDERABL ES [facility] [place] [address] * XR Chest One View (05/12/2023 1:00 [...] questions please contact the health day care worker that requested your imaging first. [...] have questions please contactthe health day care worker that requested your imaging first. Radha Hollins MD IMG DX ORDERABLES * (ABNORMAL) Coox2 (05/12/2023 12:30 AM EDT) pO2, Coox 22 mmHg [facility] Hgb Blood Gas 10.9(L) 11.7 - 15.5 g/dL [facility] Oxyhemoglobin, Coox 25.1 % [facility] Carboxyhemoglo bin, Coox 0.3 % [facility] Comment: Nonsmokers: 0.5-1.5% COHB Smokers: Variable, but usually less than 10% Toxic: 20-30% COHB Lethal: Greater than 60% COHB Methemoglobin, Coox 1.4 <=1.5 % [facility] Source Coox Mixed Venous [facility] Blood 05/12/2023 12:3 0 AM EDT 05/12/2023 12:30 AM EDT Radha Hollins MD POINT OF CARE TEST ORDERABLES [facility] [place] [address] * XR Chest One View (05/11/2023 11:45 [...] questions please contact the health day care worker that requested your imaging first. [...] have questions please contactthe health day care worker that requested your imaging first. Radha Hollins MD IMG DX ORDERABLES * (ABNORMAL) Lactate, whole blood, [place] lab [place] [place] [place] (05/11/2023 7:40 PM EDT) Lactate WB 4.8(Critic al) 0.5 - 2.2 mmol/L [facility] Comment:Called by: IMM, Read back by: Magdalena Baires, Date/Time:05/11/23 19:54. Blood 05/11/2023 7:40 PM EDT 05/11/2023 7:49 PM EDT Narrative Resulting Agency Comment Spec In Lab Radha Hollins MD CHEMISTRY ORDERABL ES Performing Organization Address [facility] Co de Phone Number [facility] [place] [address] * Urine culture (05/11/2023 7:22 PM EDT) Pathologist [facility] Urine Culture 50,000-99,000 cfu/ml Normal mucosal herman Susceptibilit y testing not routinely performed for Coagulase Negative Staphylococcu s species and other Gram Positive organisms from urine. [facility] Clean Catch Urine 05/11/2023 7:22 PM EDT 05/11/2023 8:50 PM EDT Narrative Resulting Agency Comment Spec In Lab Brody Kaplan APRN MICROBIOLOGY - GENE RAL ORDERABLES Performing Organization Address [facility] de Phone Number [facility] [place] [address] * (ABNORMAL) Urinalysis Microscopic Exam (05/11/2023 7:22 PM EDT) RBC, Urine 2 0 - 4 /HPF [facility] WBC, Urine >100(H) 0 - 5 /HPF [facility] Bacteria, Urine Occasional (A) None /HPF [facility] Squamous Epithelial Cells Raw Data, Urine 5(H) <=4 /HPF [facility] Hyaline Casts, Urine 3(H) 0 - 2 /LPF [facility] Clean Catch Urine 05/11/2023 7:22 PM EDT 05/11/2023 7:31 PM EDT Narrative Resulting Agency Comment Spec In Lab Brody Kaplan APRN URINE ORDERABLES [facility] [place] [address] * (ABNORMAL) Urinalysis with reflex Culture (05/11/2023 7:22 PM EDT) Glucose, Urine Dipstick Negative Negative mg/dL [facility] Protein, Urine Dipstick Trace(A) Negative mg/dL [facility] Bilirubin, Urine Dipstick Negative Negative mg/dL [facility] Comment: Clinical correlation required for positive Urine Bilirubin results as false positive may occur with some drugs and drug related products. If a false positive is suspected a serum total bilirubin should be considered if clinically indicated. Urobilinogen, Urine Dipstick Normal Normal mg/dL [facility] pH, Urn (dipstick) 5.0 5.0 - 8.0 [facility] Blood, Urine Dipstick Trace(A) Negative mg/dL [facility] Ketone, Urine Dipstick Negative Negative mg/dL [facility] Nitrite, Urine Dipstick Negative Negative [facility] Leukocytes, Urine Dipstick Moderate(A) Negative mcL [facility] Appearance, Urine Dipstick Cloudy(A) Clear [facility] Specific [place] Urine Automated >=1.030(A) 1.005 - 1.030 [facility] Color, Urine Dipstick Yellow Yellow [facility] Reflex to Culture Yes [facility] Clean Catch Urine 05/11/2023 7:22 PM EDT 05/11/2023 7:31 PM EDT Narrative Resulting Agency Comment Spec In Lab Brody Kaplan ACQUISITION PROFESSIONAL URINE ORDERABLES [facility] [place] [address] * (ABNORMAL) pro-Brain Natriuretic Peptide (05/11/2023 7:11 PM EDT) NT-proBNP >35,000(H) <=124 pg/mL [facility] Blood 05/11/2023 7:11 PM EDT 05/11/2023 7:26 PM EDT Narrative Resulting Agency Comment Spec In Lab Radha Hollins MD CHEMISTRY ORDERABL ES Performing Organization Address [facility]/ZIP Co de Phone Number [facility] [place] [address] * (ABNORMAL) Lactate, whole blood, [place] lab [place] (05/11/2023 2:47 PM EDT) Lactate WB 2.9(H) 0.5 - 2.2 mmol/L [facility] Blood 05/11/2023 2:47 PM EDT 05/11/2023 2:53 PM EDT Narrative Resulting Agency Comment Spec In Lab Juan Luis Gonzalez MD CHEMISTRY ORDERABLES Performing Organization Address [facility] Co de Phone Number [facility] [place] [address] * (ABNORMAL) CT Angiogram Abdomen & Pelvis [...] questions please contact the health day care worker that requested your imaging first. [...] questions please contact the health day care worker that requested your imaging first. ? Electronically signed by: Cullen Narayanan MD, [facility] ([phone]), at 05/11/2023 4:37 PM Narrative 05/11/2023 4:37 [...] 610 mm2 Circumference: 88 mm Calcification: Mild Wqbmeuq-xu-dnkysunj height: Left: 6.2 mm Right: 5.8 mm THORACIC AORTA Description: Normal course and caliber. ??Mild diffuse atherosclerotic changes. No acute aortopathy noted. 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 Mild diffuse atheroscleroticchanges. No acute aortopathy noted. Printing Worker Supervisor dimensions: Aortic root: 27.6 mm Max [...] have questions please contactthe health day care worker that requested your imaging first. Electronically signed by: Cullen Narayanan MD, [facility]([phone]), at 05/11/2023 4:37 PM Antelmo Sharma MD IMG CT ORDERABLES * (ABNORMAL) Lactate, whole blood, [place] lab [place] (05/11/2023 9:29 AM EDT) Pathologist [facility] Lactate WB 3.1(H) 0.5 - 2.2 mmol/L [facility] Blood 05/11/2023 9:29 AM EDT 05/11/2023 9:38 AM EDT Narrative Resulting Agency Comment Spec In Lab Juan Luis Gonzalez MD CHEMISTRY ORDERABLES [facility] [place] [address] * (ABNORMAL) Differential, Automated (05/11/2023 4:42 AM EDT) Neutrophil % 78.1 % [facility] Neutrophil Absolute 5.46 1.70 - 6.10 x10(3)/mc L [facility] Lymph % 10.6 % [facility] Lymphocytes Abs 0.7(L) 0.9 - 3.2 x10(3)/mc L [facility] Monocyte % 9.6 % [facility] Monocyte Abs 0.7 0.3 - 0.9 x10(3)/mc L [facility] Eos % 0.0 % [facility] Eosinophils Abs 0.0 0.0 - 0.4 x10(3)/mc L [facility] Basophil % 0.4 % [facility] Baso Absolute 0.0 0.0 - 0.1 x10(3)/ L [facility] Immature Gran % 1.30 % [facility] Comment: Immature granulocytes(IG's)percentage and absolute count will include metamyelocytes, myelocytes, and promyelocytes. Blood smears from CBCs yielding IG's will be scanned manually for concordance. If this scan disagrees with the automated IG or if promyelocytes are noted, a manual differential will be performed. Immature Gran Absolute 0.09(H) 0.00 - 0.04 x10(3)/ L [facility] Blood 05/11/2023 4:42 AM EDT 05/11/2023 4:49 AM EDT Narrative Resulting Agency Comment Spec In Lab Klaudia Reid MD HEMATOLOGY OR DERABLES Performing Organization Address City/State/[facility] Co de Phone Number [facility] [place] [address] * (ABNORMAL) Hemogram (05/11/2023 4:42 AM EDT) White Blood Cell 7.0 4.0 - 9.5 x10(3)/[facility] LABORAT[facility] Red Blood Cell 3.44(L) 4.00 - 5.21 x10(6)/[facility] Hemoglobin 11.1(L) 11.7 - 15.5 g/dL [facility] Hematocrit 32.7(L) 35.7 - 45.8 % [facility] Mean Cell Volume 95.1(H) 82.6 - 94.4 fL [facility] Mean Cell Hemoglobin 32.3(H) 27.1 - 32.0 pg [facility] Mean Cell Hemoglobin Concentration 33.9 31.7 - 35.0 g/dL [facility] Platelet 165 145 - 357 x10(3)/[facility] LABORATORY RDW Standard Deviation 43.1 37.0 - 46.0 fL [facility] RDW coefficient of variation 12.7 11.5 - 14.1 % [facility] Mean Platelet Volume 10.1 7.6 - 12.9 fL [facility] NRBC% auto 0.0 % [facility] NRBC Absolute 0.000 0.000 - 0.000 x10(3)/mc L [facility] Blood 05/11/2023 4:42 AM EDT 05/11/2023 4:49 AM EDT Narrative Resulting Agency Comment Spec In Lab Klaudia Reid MD HEMATOLOGY OR DERABLES Performing Organization Address [facility] Co de Phone Number [facility] [place] [address] * Heparin (unfractionated) Level (05/11/2023 4:42 AM EDT) UF Heparin 0.46 IU/mL [facility] Comment: Heparin (anti-Xa) levels [...] ORDERAB LES Performing Organization Address [facility] Co de Phone Number [facility] [place] [address] * (ABNORMAL) Comprehensive metabolic panel (non-fasting) (05/11/2023 4:42 AM EDT) Glucose 143 65 - 199 mg/dL [facility] Comment:Diabetes: >=200 mg/d L plus symptoms Blood Urea Nitrogen 42(H) 8 - 18 mg/dL [facility] Creatinine 1.24(H) 0.70 - 1.20 mg/dL [facility] Sodium 134(L) 135 - 145 mmol/L [facility] Potassium 4.6 3.5 - 5.0 mmol/L [facility] Comment: Please note: ??Patients with WBC >100,000 may have falsely elevated Potassium levels. ??For accurate Potassium quantification in these patients send serum separator tube (gold top) for subsequent determinations. ??Contact the Clinical Chemistry Laboratory if there are any questions. Chloride 99 98 - 107 mmol/L [facility] Carbon Dioxide 14(L) 22 - 31 mmol/L [facility] Anion Gap 21(H) 5 - 15 mmol/L [facility] Calcium 9.6 8.5 - 10.5 mg/dL [facility] Protein, Total 7.2 6.1 - 8.0 g/dL [facility] Albumin 3.7 3.2 - 5.2 g/dL [facility] Aspartate Aminotransferase 144(H) 0 - 30 unit/L [facility] Comment:result rechecked-ssc Alanine Aminotransferase 130(H) 0 - 30 unit/L [facility] Comment:result rechecked-ssc Alkaline Phosphatase 72 35 - 105 unit/L [facility] Bilirubin, Total 0.8 0.2 - 1.3 mg/dL [facility] Est Glomerular Filtration Rate 48(L) >=60 mL/min/1. 73 m?? [facility] Lab Radha Hollins MD CHEMISTRY ORDERABL ES [facility] [place] [address] * EKG 12 Lead (05/10/2023 1:16 PM EDT) Ventricular rate 118 BPM MUSE SYSTEM Atrial Rate 118 BPM MUSE SYSTEM P-R Interval 152 ms MUSE SYSTEM QRS Duration 104 ms MUSE SYSTEM Q-T Interval 316 ms MUSE SYSTEM QTC Calculated (Bezet) 442 ms MUSE SYSTEM Calculated P Batson 29 degrees MUSE SYSTEM Calculated R Batson 18 degrees MUSE SYSTEM Calculated T Batson -173 degrees MUSE SYSTEM INTERPRETATION Sinus tachycardia [...] Anterior leads Confirmed by MD Mono, Eleni ([id number]) on 05/10/2023 8:47:46 PM MUSE SYSTEM 05/10/2023 1:16 PM EDT 05/10/2023 8:47 PM EDT Juan Luis Gonzalez MD ECG ORDERABLES Performing Organization Address City/[facility]/ZIP Co de Phone Number MUSE SYSTEM * Lactate, whole blood, send [place] lab [place] (05/10/2023 11:52 AM EDT) Pathologist [facility] Lactate WB 1.8 0.5 - 2.2 mmol/L [facility] Blood 05/10/2023 11:5 2 AM EDT 05/10/2023 12:13 PM EDT Narrative Resulting Agency Comment Spec In Lab Juan Luis Gonzalez MD CHEMISTRY ORDERABLES [facility] [place] [address] * XR Chest One View (05/10/2023 11:16 [...] questions please contact the health day care worker that requested your imaging first. ? Electronically signed by: ALIX RUVALCABA MD, [facility] ([phone]), at 05/10/2023 1:25 PM Narrative 05/10/2023 1:25 [...] have questions please contactthe health day care worker that requested your imaging first. Electronically signed by: ALIX RUVALCABA MD, [facility]([phone]), at 05/10/2023 1:25 PM Juan Luis Gonzalez MD IMG DX ORDERABLES * EKG 12 Lead (05/10/2023 7:59 AM EDT) Ventricular rate 115 BPM MUSE SYSTEM Atrial Rate 115 BPM MUSE SYSTEM P-R Interval 142 ms MUSE SYSTEM QRS Duration 102 ms MUSE SYSTEM Q-T Interval 322 ms MUSE SYSTEM QTC Calculated (Bezet) 445 ms MUSE SYSTEM Calculated P Batson 36 degrees MUSE SYSTEM Calculated R Batson 28 degrees MUSE SYSTEM Calculated T Batson -119 degrees MUSE SYSTEM INTERPRETATION Sinus tachycardia with frequent Premature ventricular complexes and Fusion complexes ST & T wave abnormality, consider lateral ischemia Abnormal ECG When compared with ECG of 08-MAY-2023 15:51, No significant change was found I personally reviewed the tracing and edited the fellows interpretation Confirmed by fellow MD Anitha, Carissa ([id number]) on 05/11/2023 6:19:54 AM Confirmed by MD Tram, Chel ([id number]) on 05/11/2023 3:18:56 PM MUSE SYSTEM 05/10/2023 7:59 AM EDT 05/11/2023 3:18 PM EDT Radha Hollins MD ECG ORDERABLES MUSE SYSTEM * (ABNORMAL) Differential, Automated (05/10/2023 2:28 AM EDT) Neutrophil % 77.1 % [facility] Neutrophil Absolute 4.01 1.70 - 6.10 x10(3)/mc L [facility] Lymph % 14.0 % [facility] Lymphocytes Abs 0.7(L) 0.9 - 3.2 x10(3)/mc L [facility] Monocyte % 7.7 % [facility] Monocyte Abs 0.4 0.3 - 0.9 x10(3)/mc L [facility] Eos % 0.4 % [facility] Eosinophils Abs 0.0 0.0 - 0.4 x10(3)/ L [facility] Basophil % 0.4 % [facility] Baso Absolute 0.0 0.0 - 0.1 x10(3)/ L [facility] Immature Gran % 0.40 % [facility] Comment: Immature granulocytes(IG's)percentage and absolute count will include metamyelocytes, myelocytes, and promyelocytes. Blood smears from CBCs yielding IG's will be scanned manually for concordance. If this scan disagrees with the automated IG or if promyelocytes are noted, a manual differential will be performed. Immature Gran Absolute 0.02 0.00 - 0.04 x10(3)/[facility]AT[facility] Blood 05/10/2023 2:28 AM EDT 05/10/2023 2:57 AM EDT Narrative Resulting Agency Comment Spec In Lab Klaudia Reid MD HEMATOLOGY OR DERABLES [facility] [place] [address] * (ABNORMAL) Hemogram (05/10/2023 2:28 AM EDT) White Blood Cell 5.2 4.0 - 9.5 x10(3)/ L [facility] Red Blood Cell 3.11(L) 4.00 - 5.21 x10(6)/mc L [facility] Hemoglobin 10.2(L) 11.7 - 15.5 g/dL [facility] Hematocrit 30.2(L) 35.7 - 45.8 % [facility] Mean Cell Volume 97.1(H) 82.6 - 94.4 fL [facility] Mean Cell Hemoglobin 32.8(H) 27.1 - 32.0 pg [facility] Mean Cell Hemoglobin Concentration 33.8 31.7 - 35.0 g/dL [facility] Platelet 151 145 - 357 x10(3)/ L [facility] RDW Standard Deviation 44.9 37.0 - 46.0 fL [facility] RDW coefficient of variation 12.8 11.5 - 14.1 % [facility] Mean Platelet Volume 9.8 7.6 - 12.9 fL [facility] NRBC% auto 0.0 % [facility] NRBC Absolute 0.000 0.000 - 0.000 x10(3)/mc L [facility] Blood 05/10/2023 2:28 AM EDT 05/10/2023 2:57 AM EDT Narrative Resulting Agency Comment Spec In Lab Klaudia Reid MD HEMATOLOGY OR DERABLES Performing Organization Address City/State/[facility] Co de Phone Number [facility] [place] [address] * (ABNORMAL) Comprehensive metabolic panel (non-fasting) (05/10/2023 2:28 AM EDT) Glucose 100 65 - 199 mg/dL [facility] Comment:Diabetes: >=200 mg/d L plus symptoms Blood Urea Nitrogen 30(H) 8 - 18 mg/dL [facility] Creatinine 0.90 0.70 - 1.20 mg/dL [facility] Sodium 134(L) 135 - 145 mmol/L [facility] Potassium 4.1 3.5 - 5.0 mmol/L [facility] Comment: Please note: ??Patients with WBC >100,000 may have falsely elevated Potassium levels. ??For accurate Potassium quantification in these patients send serum separator tube (gold top) for subsequent determinations. ??Contact the Clinical Chemistry Laboratory if there are any questions. Chloride 102 98 - 107 mmol/L [facility] Carbon Dioxide 20(L) 22 - 31 mmol/L [facility] Anion Gap 12 5 - 15 mmol/L [facility] Calcium 9.3 8.5 - 10.5 mg/dL [facility] Protein, Total 6.4 6.1 - 8.0 g/dL [facility] Albumin 3.7 3.2 - 5.2 g/dL [facility] Aspartate Aminotransferase 24 0 - 30 unit/L [facility] Alanine Aminotransferase 14 0 - 30 unit/L [facility] Alkaline Phosphatase 70 35 - 105 unit/L [facility] Bilirubin, Total 0.5 0.2 - 1.3 mg/dL [facility] Est Glomerular Filtration Rate 70 >=60 mL/min/1. 73 m?? [facility] [...] Lab Radha Hollins MD CHEMISTRY ORDERABL ES [facility] [place] [address] * Heparin (unfractionated) Level (05/10/2023 2:28 AM [...] Lab Radha Hollins MD [place] [address] * (ABNORMAL) Differential, Automated (05/09/2023 4:00 AM EDT) Neutrophil % 81.7 % [facility] Neutrophil Absolute 5.26 1.70 - 6.10 x10(3)/mc L [facility] Lymph % 10.7 % [facility] Lymphocytes Abs 0.7(L) 0.9 - 3.2 x10(3)/mc L [facility] Monocyte % 6.5 % [facility] Monocyte Abs 0.4 0.3 - 0.9 x10(3)/mc L [facility] Eos % 0.5 % [facility] Eosinophils Abs 0.0 0.0 - 0.4 x10(3)/mc L [facility] Basophil % 0.3 % [facility] Baso Absolute 0.0 0.0 - 0.1 x10(3)/mc L [facility] Immature Gran % 0.30 % [facility] Comment: Immature granulocytes(IG's)percentage and absolute count will include metamyelocytes, myelocytes, and promyelocytes. Blood smears from CBCs yielding IG's will be scanned manually for concordance. If this scan disagrees with the automated IG or if promyelocytes are noted, a manual differential will be performed. Immature Gran Absolute 0.02 0.00 - 0.04 x10(3)/mc L [facility] Blood 05/09/2023 4:00 AM EDT 05/09/2023 4:19 AM EDT Narrative Resulting Agency Comment Spec In Lab Klaudia Reid MD HEMATOLOGY OR DERABLES Performing Organization Address City/[facility]/ZIP Co de Phone Number [facility] [place] [address] * (ABNORMAL) Hemogram (05/09/2023 4:00 AM EDT) White Blood Cell 6.4 4.0 - 9.5 x10(3)/mc L [facility] Red Blood Cell 3.15(L) 4.00 - 5.21 x10(6)/mc L [facility] Hemoglobin 10.2(L) 11.7 - 15.5 g/dL [facility] Hematocrit 30.3(L) 35.7 - 45.8 % [facility] Mean Cell Volume 96.2(H) 82.6 - 94.4 fL [facility] Mean Cell Hemoglobin 32.4(H) 27.1 - 32.0 pg [facility] Mean Cell Hemoglobin Concentration 33.7 31.7 - 35.0 g/dL [facility] Platelet 151 145 - 357 x10(3)/mc L [facility] RDW Standard Deviation 44.7 37.0 - 46.0 fL [facility] RDW coefficient of variation 12.8 11.5 - 14.1 % [facility] Mean Platelet Volume 9.4 7.6 - 12.9 fL [facility] NRBC% auto 0.0 % [facility] NRBC Absolute 0.000 0.000 - 0.000 x10(3)/ L [facility] Blood 05/09/2023 4:00 AM EDT 05/09/2023 4:19 AM EDT Narrative Resulting Agency Comment Spec In Lab Klaudia Reid MD HEMATOLOGY OR DERABLES Performing Organization Address City/State/[facility] Co de Phone Number [facility] [place] [address] * Heparin (unfractionated) Level (05/09/2023 4:00 AM EDT) UF Heparin 0.47 IU/mL [facility] Comment: Heparin (anti-Xa) levels [...] Lab Radha Hollins MD HEMATOLOGY ORDERAB LES [facility] [place] [address] * (ABNORMAL) Comprehensive metabolic panel (non-fasting) (05/09/2023 4:00 AM EDT) Glucose 108 65 - 199 mg/dL [facility] Comment:Diabetes: >=200 mg/d L plus symptoms Blood Urea Nitrogen 31(H) 8 - 18 mg/dL [facility] Creatinine 1.03 0.70 - 1.20 mg/dL [facility] Sodium 137 135 - 145 mmol/L [facility] Potassium 4.4 3.5 - 5.0 mmol/L [facility] Comment: Please note: ??Patients with WBC >100,000 may have falsely elevated Potassium levels. ??For accurate Potassium quantification in these patients send serum separator tube (gold top) for subsequent determinations. ??Contact the Clinical Chemistry Laboratory if there are any questions. Chloride 102 98 - 107 mmol/L [facility] Carbon Dioxide 20(L) 22 - 31 mmol/L [facility] Anion Gap 15 5 - 15 mmol/L [facility] Calcium 9.3 8.5 - 10.5 mg/dL [facility] Protein, Total 6.6 6.1 - 8.0 g/dL [facility] Albumin 3.8 3.2 - 5.2 g/dL [facility] Aspartate Aminotransferase 32(H) 0 - 30 unit/L [facility] Alanine Aminotransferase 18 0 - 30 unit/L [facility] Alkaline Phosphatase 78 35 - 105 unit/L [facility] Bilirubin, Total 0.5 0.2 - 1.3 mg/dL [facility] Est Glomerular Filtration Rate 60 >=60 mL/min/1. 73 m?? [facility] ORDERABL ES Performing Organization Address [facility] Co de Phone Number [facility] [place] [address] * (ABNORMAL) pro-Brain Natriuretic Peptide (05/08/2023 4:00 PM EDT) NT-proBNP 25,503(H) <=124 pg/mL [facility] Blood Venous Draw / Unknown 05/08/2023 4:00 PM EDT 05/08/2023 4:25 PM EDT Narrative Resulting Agency Comment Spec In Lab Juan Luis Gonzalez MD CHEMISTRY ORDERABLES Performing Organization Address [facility] Co de Phone Number [facility] [place] [address] * Magnesium (05/08/2023 4:00 PM EDT) Magnesium 0.82 0.69 - 1.07 mmol/L [facility] Blood 05/08/2023 4:00 PM EDT 05/08/2023 4:06 PM EDT Narrative Resulting Agency Comment Spec In Lab Enrique Chua MD CHEMISTRY ORDERABLES Performing Organization Address [facility] Co de Phone Number [facility] [place] [address] * Potassium (05/08/2023 4:00 PM EDT) Potassium 3.9 3.5 - 5.0 mmol/L [facility] ORDERABL ES Performing Organization Address [facility] Co de Phone Number [facility] [place] [address] * Heparin (unfractionated) Level (05/08/2023 4:00 PM EDT) UF Heparin 0.43 IU/mL [facility] Comment: Heparin (anti-Xa) levels [...] Resulting Agency Comment Spec In Lab Radha Hlolins MD HEMATOLOGY ORDERAB LES Performing Organization Address [facility]/ZIP Co de Phone Number [facility] [place] [address] * EKG 12 Lead (05/08/2023 3:51 PM EDT) Ventricular rate 98 BPM MUSE SYSTEM Atrial Rate 98 BPM MUSE SYSTEM P-R Interval 150 ms MUSE SYSTEM QRS Duration 102 ms MUSE SYSTEM Q-T Interval 358 ms MUSE SYSTEM QTC Calculated (Bezet) 457 ms MUSE SYSTEM Calculated P Batson 38 degrees MUSE SYSTEM Calculated R Batson 48 degrees MUSE SYSTEM Calculated T Batson -112 degrees MUSE SYSTEM INTERPRETATION Sinus rhythm with frequent and consecutive Premature ventricular and fusion complexes Septal infarct , age undetermined ST & T wave abnormality, consider anterolateral ischemia Abnormal ECG When compared with ECG of 09-NOV-2022 11:17, T wave inversion now evident in Anterolateral leads Confirmed by MD Harshil, Enrique Bell ([id number]) on 05/10/2023 8:11:46 AM MUSE SYSTEM 05/08/2023 3:51 PM EDT 05/10/2023 8:11 AM EDT Radha Hollins MD ECG ORDERABLES MUSE SYSTEM * (ABNORMAL) Differential, Automated (05/08/2023 11:38 AM EDT) Pathologist [facility] Neutrophil % 71.3 % [facility] Neutrophil Absolute 2.91 1.70 - 6.10 x10(3)/mc L [facility] Lymph % 19.1 % [facility] Lymphocytes Abs 0.8(L) 0.9 - 3.2 x10(3)/mc L [facility] Monocyte % 9.0 % [facility] Monocyte Abs 0.4 0.3 - 0.9 x10(3)/mc L [facility] Eos % 0.2 % [facility] Eosinophils Abs 0.0 0.0 - 0.4 x10(3)/mc L [facility] Basophil % 0.2 % [facility] Baso Absolute 0.0 0.0 - 0.1 x10(3)/mc L [facility] Immature [...] Absolute 0.01 0.00 - 0.04 x10(3)/mc L [facility] Blood 05/08/2023 11:3 8 AM EDT 05/08/2023 11:44 AM EDT Narrative Resulting Agency Comment Spec In Lab Lincoln Sal MD HEMATOLOGY ORDERA BLES [facility] [place] [address] * (ABNORMAL) Hemogram (05/08/2023 11:38 AM EDT) White Blood Cell 4.1 4.0 - 9.5 x10(3)/mc L [facility] Red Blood Cell 3.05(L) 4.00 - 5.21 x10(6)/[facility] Hemoglobin 10.2(L) 11.7 - 15.5 g/dL [facility] Hematocrit 29.6(L) 35.7 - 45.8 % [facility] Mean Cell Volume 97.0(H) 82.6 - 94.4 fL [facility] Mean Cell Hemoglobin 33.4(H) 27.1 - 32.0 pg [facility] Mean Cell Hemoglobin Concentration 34.5 31.7 - 35.0 g/dL [facility] Platelet 136(L) 145 - 357 x10(3)/mc L [facility] RDW Standard Deviation 44.3 37.0 - 46.0 fL [facility] RDW coefficient of variation 12.6 11.5 - 14.1 % [facility] Mean Platelet Volume 9.4 7.6 - 12.9 fL [facility] NRBC% auto 0.0 % [facility] NRBC Absolute 0.000 0.000 - 0.000 x10(3)/mc L [facility] Blood 05/08/2023 11:3 8 AM EDT 05/08/2023 11:44 AM EDT Narrative Resulting Agency Comment Spec In Lab Lincoln Sal MD HEMATOLOGY ORDERA BLES Performing Organization Address City/[facility] Co de Phone Number [facility] [place] [address] * TSH (05/08/2023 11:38 AM EDT) Thyroid Stimulating Hormone 1.27 0.27 - 4.20 mcIU/mL [facility] Comment: Reference Interval (mcIU/mL): Females: ??First Trimester: 0.23-3.88 ??Second Trimester: 0.22-3.90 ??Third Trimester: 0.44-4.66 Blood 05/08/2023 11:3 8 AM EDT 05/08/2023 11:44 AM EDT Narrative Resulting Agency Comment Spec In Lab Enrique Chua MD CHEMISTRY ORDERABLES Performing Organization Address [facility] Co de Phone Number [facility] [place] [address] * (ABNORMAL) Phosphorus (05/08/2023 11:38 AM EDT) Phosphorus 4.7(H) 2.5 - 4.5 mg/dL [facility] Blood 05/08/2023 11:3 8 AM EDT 05/08/2023 11:44 AM EDT Narrative Resulting Agency Comment Spec In Lab Enrique Chua MD CHEMISTRY ORDERABLES Performing Organization Address City/[facility] Co de Phone Number [facility] [place] [address] * Magnesium (05/08/2023 11:38 AM EDT) Magnesium 0.76 0.69 - 1.07 mmol/L [facility] Blood 05/08/2023 11:3 8 AM EDT 05/08/2023 11:44 AM EDT Narrative Resulting Agency Comment Spec In Lab Enrique Chua MD CHEMISTRY ORDERABLES Performing Organization Address City/[facility]/ZIP Co de Phone Number [facility] [place] [address] * (ABNORMAL) Basic Metabolic Panel (non-fasting) (05/08/2023 11:38 AM EDT) Glucose 97 65 - 199 mg/dL [facility] Comment:Diabetes: >=200 mg/d L plus symptoms Blood Urea Nitrogen 27(H) 8 - 18 mg/dL [facility] Creatinine 1.02 0.70 - 1.20 mg/dL [facility] Sodium 139 135 - 145 mmol/L [facility] Potassium 4.2 3.5 - 5.0 mmol/L [facility] Comment: Please note: ??Patients with WBC >100,000 may have falsely elevated Potassium levels. ??For accurate Potassium quantification in these patients send serum separator tube (gold top) for subsequent determinations. ??Contact the Clinical Chemistry Laboratory if there are any questions. Chloride 105 98 - 107 mmol/L [facility] Carbon Dioxide 20(L) 22 - 31 mmol/L [facility] Anion Gap 14 5 - 15 mmol/L [facility] Calcium 9.4 8.5 - 10.5 mg/dL [facility] Est Glomerular Filtration Rate 60 >=60 mL/min/1. 73 m?? [facility] [...] In Lab Enrique Chua MD CHEMISTRY ORDERABLES [facility] [place] [address] * ECHO COMPLETE (05/08/2023 11:02 AM EDT) EF 25 HEARTLAB SYSTEM Anatomical Region Laterality Modality Cardiac Other 05/08/2023 10:0 3 AM EDT Narrative 05/08/2023 11:51 AM EDT ? Echocardiogram Report Name: PURNIMA THACKER ?Study Date: 05/08/2023 10:03 AMBP: 92/64 mmHg ? Patient Location: [facility]^CV29^A : 1955 ? Height: 155 cm ? Account: [id number] Age: 67 yrs ? Weight: 78 kg Gender: Female ?BSA: 1.8 m2 Ordering Physician: ENRIQUE CHUA Referring Physician: MARIO ALBERTO CHIN Performed By: CHUCKIE Canchola Reason For Study: SAVR Stenosis Exam Location: [facility]. Interpretation Summary -Left ventricle is severely [...] worsening stenosis. Mitral regurgitation is similar. Procedure Complete-[id number]. Satisfactory quality. There is normal sinus rhythm. [...] Study Date: 0:03 AMBP: 92/64 mmHg Patient Location:[facility]^CV29^A : 1955 Height: 155 cm Account: [id number] Age: 67 yrs Weight: 78 kg Gender: Female BSA: 1.8 m2 Ordering Physician: ENRIQUE CHUA Referring Physician: MARIO ALBERTO CHIN Performed By: CHUCKIE Canchola Reason For Study: SAVR Stenosis Exam Location: [facility]. Interpretation Summary -Left ventricle is severely [...] suggestsworsening stenosis. Mitral regurgitation is similar. Procedure Complete-[id number]. Satisfactory quality. There is normal sinus rhythm. [...] S [facility] [place] [address] documented in this encounter Visit Diagnoses Diagnosis S/P TAVR (transcatheter aortic valve replacement)- Primary Aortic valve stenosis, etiology of cardiac valve disease unspecified Heart failure with reduced ejection fraction due to heart valve disease Mild coronary artery disease by [facility] 11/09/2022 Mixed connective tissue [...] fraction Mild coronary artery disease by [facility] 11/09/2022 Stenosis of prosthetic [...] dose on Wed05/12/23 at 1030, Until Discontinued, [place] teeth, Routine Given 05/12/2023 10:04 AM EDT [...] at 0831, Side port TKO rate, per [facility] flush protocol Rate/Dose Verify 05/13/2023 6:00 AM EDT 10 mL/hr 10 mL/hr Rate/Dose Verify 05/13/2023 4:00 AM EDT 10 mL/hr 10 mL/h r Rate/Dose Verify 05/13/2023 2:00 AM EDT 10 mL/hr 10 mL/h r sodium chloride 0.9% infusion 10-30 mL/hr, Intravenous, DAILY PRN, Starting on Wed05/12/23 at 0944, Until Wed05/17/23 at 0831, Side port TKO rate, per [facility] flush protocol. Rate/Dose Verify 05/17/2023 8:00 [...] Routine documented in this encounter Care Teams Publicity Writer Relationship Specialty Start Date End Date Magdalena Acosta MD [address] [place] [address] PCP - General Family Medicine 02/05/23 documented as of this encounter
--- OUTSIDE RECORDS SUMMARY | 2024-06-22 14:12 | XMS_ITS | Encounter Summary ---
Author Organization [facility] Erika [facility] [address] Care Team Providers Care E Business Consultant Name Role Phone Magdalena Acosta MD Primary Care Provider [phone] Encounter Details Date Type Department Care Team [...] EST Office Visit Hematology and Oncology at [place] [phone] Markel Borjas MD [facility] [address] HEMATOLOGY [place] [address] 11/02/2024 12:00 PM EDT Appointment [place] [address] 11/02/2024 1:00 PM EDT Office [place] [address] Magdalena Peralta MD [facility] [place] [address] 03/01/2025 4:15 PM EDT Office Visit Dermatology at [place] [address] [place] [address] Marek Bonilla MD [address] [place] [address] documented as of this encounter Visit Diagnoses Not on filedocumented in this encounter Care Teams E Business Consultant Relationship Specialty Start Date End Date Magdalena Acosta MD [address] [place] [address] PCP - General Family Medicine 02/05/23 documented as of this encounter
--- OUTSIDE RECORDS SUMMARY | 2024-06-22 14:12 | XMS_ITS | Encounter Summary ---
[place] [address] Care Team Providers Care Curriculum And Assessment Director Name Role Phone Magdalena Acosta MD Primary Care Provider [phone] Reason for Visit * Reason Comments Skin Lesion Encounter Details Date Type Department Care Team (Late st Contact Info) Description 04/20/2023 10:00 AM EDT Office Visit Dermatology at [address] [address] Marek Bonilla MD [address] [facility] [place] [address] Seborrheic keratosis Social History Tobacco Use Types [...] cutaneous and ocular 3. Previously told by fire lieutenant that she had corneal tears from her [...] EST Office Visit Hematology and Oncology at [place] [address] Markel Borjas MD [facility] [address] [place] [address] 11/02/2024 12:00 PM EDT Appointment Pulmonology at [place] [address] 11/02/2024 1:00 PM EDT Office Visit Rheumatology at [place] [address] Magdalena Peralta MD [facility] [place] [address] 03/01/2025 4:15 PM EDT Office Visit Dermatology at [address] [place] [address] Marek Bonilla MD [address] [facility] [place] [address] documented as of this encounter Visit Diagnoses Diagnosis Seborrheic keratosis Other seborrheic keratosis documented in this encounter Care Teams Curriculum And Assessment Director Relationship Specialty Start Date End Date Magdalena Acosta MD [address] [place] [address] PCP - General Family Medicine 02/05/23 documented as of this encounter
--- OUTSIDE RECORDS SUMMARY | 2024-06-22 14:12 | XMS_ITS | Encounter Summary ---
Author Organization [facility] Address [facility] [place] [address] Care Team Providers Care Programmer Analyst Consultant Name Role Phone Magdalena Acosta MD Primary Care Provider [phone] Encounter Details Date Type Department Care Team (Late st Contact Info) Description 04/27/2023 3:00 PM EDT Office [place] [address] Magdalena Peralta MD [facility] [place] [address] Mixed connective tissue disease Social History Tobacco [...] 1:5120 speckled; VIC negative; Myositis panel with FILTER PRESS TENDER HEAD ab 149.1 (positive); Anti U1RNP IgG 119; [...] EST Office Visit Hematology [place] [address] Markel Borjas MD [facility] [address] [place] [address] 11/02/2024 12:00 PM EDT Appointment [place] [address] 11/02/2024 1:00 PM EDT Office [place] [address] Magdalena Peralta MD [facility] [place] [address] 03/01/2025 4:15 PM EDT Office Visit Dermatology at [place] [address] [place] [address] Marek Bonilla MD [address] [place] [address] documented as of this encounter Visit Diagnoses Diagnosis Mixed connective tissue disease Other specified diffuse disease of connective tissue documented in this encounter Care Teams Programmer Analyst Consultant Relationship Specialty Start Date End Date Magdalena Acosta MD [address] [place] [address] PCP - General Family Medicine 02/05/23 documented as of this encounter
--- OUTSIDE RECORDS SUMMARY | 2024-06-22 14:12 | XMS_ITS | Encounter Summary ---
Author Organization [facility] [place] [address] Care Team Providers Care Gore Seamer Name Role Phone Magdalena Acosta MD Primary Care Provider [phone] Encounter Details Date Type Department Care Team (Late st Contact Info) Description 05/08/2023 [place] [phone] Luis Felipe Ott MD [facility] [place] [address] Social History Tobacco Use Types Packs/Day Years [...] 0426 Referring Provider: Nitesh Baltazar Patient Location: [facility] Presenting Symptoms per OSH: 67 year [...] diuresis with IV furosemide 20 x 1 ([id number] at rheumatology appointment), SpO2 85% on RA -> 95% on 2L NC, HR 120s. Examination significant for decreased breath sounds at the bases. Pertinent Diagnostic Findings: CBC - Hgb 10.5 CMP - Cr 1.1 BNP 73320 HsTrop 1358 Lactate 1.6 D-dimer 1183, CTPE pending CXR demonstrated pulmonary vascular congestion US showed bilateral b lines Bedside echo reportedly similar to prior TTE for LV function OSH Interventions: ASA 324 Heparin gtt Plan: Transfer to [facility] Above recommendations/plans are based on my conversation with the referring provider. I have not personally interviewed or examined this patient. Luis Felipe Ott MD Performance Engineer Received a call from provider emergently [...] those things remain stable. Nico Segura, PGY-6 Performance Engineer [id number] documented in this encounter Plan of Treatment Upcoming Encounters Date Type Department Care Team (Late st Contact Info) Description 06/23/2024 2:00 PM EST Office Visit Hematology [place] [address] Markel Borjas MD [facility] DR HEMATOLOGY [place] [address] 11/02/2024 12:00 PM EDT Appointment [place] [phone] 11/02/2024 1:00 PM EDT Office [place] [address] Magdalena Peralta MD [facility] [address] [place] [address] 03/01/2025 4:15 PM EDT Office Visit Dermatology at [place] [address] [place] [phone] Marek Bonilla MD [address] [facility] [place] [address] documented as of this encounter Visit Diagnoses Not on filedocumented in this encounter Care Teams Gore Seamer Relationship Specialty Start Date End Date Magdalena Acosta MD [address] [place] [address] PCP - General Family Medicine 02/05/23 documented as of this encounter
--- OUTSIDE RECORDS SUMMARY | 2024-06-22 14:12 | XMS_ITS | Encounter Summary ---
Author Organization [facility] Address [facility] [place] [address] Care Team Providers Care Rhinestone Setter Name Role Phone Magdalena Acosta MD [...] EST Office Visit Hematology [place] [address] Markel Borjas MD [facility] [address] HEMATOLOGY [place] [address] 11/02/2024 12:00 PM EDT Appointment [place] [phone] 11/02/2024 1:00 PM EDT Office [place] [address] Magdalena Peralta MD [facility] DR [place]HE[place] [address] 03/01/2025 4:15 PM EDT Office Visit Dermatology at [place] [address] [place] [phone] Marek Bonilla MD [address] [place] [address] documented as of this encounter Visit Diagnoses Not on filedocumented in this encounter Care Teams Rhinestone Setter Relationship Specialty Start Date End Date Magdalena Acosta MD [address] [place] [address] PCP - General Family Medicine 02/05/23 documented as of this encounter
--- OUTSIDE RECORDS SUMMARY | 2024-06-22 14:12 | XMS_ITS | Encounter Summary ---
Author Organization [facility]rika [facility] [place] [address] Care Team Providers Care Firebrick And Refractory Tile Repairer Name Role Phone Magdalena Acosta MD Primary Care Provider [phone] Encounter Details Date Type Department Care Team [...] Visit Hematology and Oncology at [place] [phone] Markel Borjas MD [facility] [address] [place]AT[place] [address] 11/02/2024 12:00 PM EDT Appointment [place] [address] 11/02/2024 1:00 PM EDT Office [place] [address] Magdalena Peralta MD [facility] [place] [address] 03/01/2025 4:15 PM EDT Office Visit Dermatology at [place] [address] [place] [address] Marek Bonilla MD [address] [place] [address] documented as of this encounter Visit Diagnoses Not on filedocumented in this encounter Care Teams Firebrick And Refractory Tile Repairer Relationship Specialty Start Date End Date Magdalena Acosta MD [address] [place] [address] PCP - General Family Medicine 02/05/23 documented as of this encounter
--- OUTSIDE RECORDS SUMMARY | 2024-06-22 14:12 | XMS_ITS | Encounter Summary ---
Author Organization [facility] [place] [address] Care Team Providers Care Inspector Integrated Circuits Name Role Phone Magdalena Acosta MD Primary Care Provider [phone] Encounter Details Date Type Department Care Team (Late st Contact Info) Description 03/29/2023 Notes Only Cardiology at [address] [phone] Vahid Plasencia, RN Social History Tobacco Use [...] 82/51; Mild AR; Moderate MR; Trace TR [facility] 11/09/2022: Non obstructive CAD STS 4.1 Plan:Schedule SDM clinic, diagnostics and frailty assessment. documented in this encounter Plan of Treatment Upcoming Encounters Date Type Department Care Team (Late st Contact Info) Description 06/23/2024 2:00 PM EST Office Visit Hematology and Oncology at [place] [phone] Markel Borjas MD [facility] [address] [place] [address] 11/02/2024 12:00 PM EDT Appoint[place] [address] 11/02/2024 1:00 PM EDT Office Visit Rheumatology at [place] [address] Magdalena Peralta MD [facility] [place] [address] 03/01/2025 4:15 PM EDT Office Visit Dermatology at [address] [address] Marek Bonilla MD [address] [facility] [place] [place] [address] documented as of this encounter Visit Diagnoses Not on filedocumented in this encounter Care Teams Inspector Integrated Circuits Relationship Specialty Start Date End Date Magdalena Acosta MD [address] [place] [address] PCP - General Family Medicine 02/05/23 documented as of this encounter
--- OUTSIDE RECORDS SUMMARY | 2024-06-22 14:13 | XMS_ITS | Encounter Summary ---
Author Organization Formerly [facility] E[address] [place] [address] Care Team Providers Care School Psychology Specialist Name Role Phone Magdalena Acosta MD Primary Care Provider [phone] Encounter Details Date Type Department Care Team [...] Visit Hematology and Oncology at [place] [phone] Markel Borjas MD [facility] [address] [place] [address] 11/02/2024 12:00 PM EDT Appointment [place] [address] 11/02/2024 1:00 PM EDT Office [place] [address] Magdalena Peralta MD [facility] [place] [address] 03/01/2025 4:15 PM EDT Office Visit Dermatology at [place] [address] [place] [phone] Marek Bonilla MD [address], [place] [address] documented as of this encounter Visit Diagnoses Not on filedocumented in this encounter Care Teams School Psychology Specialist Relationship Specialty Start Date End Date Magdalena Acosta MD [address] [place] [address] PCP - General Family Medicine 02/05/23 documented as of this encounter
--- OUTSIDE RECORDS SUMMARY | 2024-06-22 14:13 | XMS_ITS | Encounter Summary ---
[place] [address] Care Team Providers Care Word Processor Technician Name Role Phone Deborah Quiroga APRN Primary Care Provider [phone] Reason for Referral * Consultation (Routine) - Closed Specialty Diagnoses / Procedures Referred By Contac t Referred To Contact Rheumatology Diagnoses Positive FRANCISCO (antinuclear antibody) Arthralgia, unspecified joint Sandy Wu APRN [address] [place] [address] [facility] Rhe[facility] [address] [place] [phone] Referral ID Status Reason Start Date Expiration Date V isits Requested Visits Authorized [id number] Closed Consult, Test & Treat PCP Updated and/or Approved 01/01/2022 01/01/2023 6 6 Encounter Details Date Type Department Care Team (Latest Contact Info) Description 01/01/2022 Transcribe Orders eDH Incoming Referrals [phone] Sandy Wu APRN [address] [place], [place] [id number] Positive FRANCISCO (antinuclear antibody); Arthralgia, unspecified joint [...] EST Office Visit Hematology and Oncology at [place] [phone] Markel Borjas MD [facility] [address] HEMATOLOGY [place] [address] 11/02/2024 12:00 PM EDT Appointment Pulmonology at [address] 11/02/2024 1:00 PM EDT Office Visit Rheumatology at [place] [address] Magdalena Peralta MD [facility] DR [place]UM[place] [address] 03/01/2025 4:15 PM EDT Office Visit Dermatology at [address] [phone] Marek Bonilla MD [address] [place] [address], [place] [address] Scheduled Referrals Name Type Priority Associated Diagnoses Orde r Schedule Referral to Rheumatology Outpatient Referral Routine Positive FRANCISCO (antinuclear antibody) Arthralgia, unspecified joint Ordered: 01/01/2022 documented as of this encounter Visit Diagnoses Diagnosis Positive FRANCISCO (antinuclear antibody) Other and unspecified nonspecific immunological findings Arthralgia, unspecified joint documented in this encounter Care Teams Word Processor Technician Relationship Specialty Start Date End Date Deborah Quiroga APRN PCP - General Family Medicine 03/24/16 02/04/23 documented as of this encounter
--- OUTSIDE RECORDS SUMMARY | 2024-06-22 14:13 | XMS_ITS | Encounter Summary ---
Author Organization Formerly [facility] [place] [address] Care Team Providers Care Ambulance Driver Name Role Phone [place] Quiroga APRN Primary Care Provider [phone] Encounter Details Date Type Department Care Team (Late st Contact Info) Description 06/05/2021 Interpretation Only [address] [address] [place] Quiroga APRN [address] [phone] Social History Tobacco Use Types Packs/Day Years [...] EST Office Visit Hematology [place] [phone] Markel Borjas MD [facility] [address] HEMATOLOGY [place] [address] 11/02/2024 12:00 PM EDT Appointment [place] [phone] 11/02/2024 1:00 PM EDT Office Visit [place] [address] Magdalena Peralta MD [facility] [place] [address] 03/01/2025 4:15 PM EDT Office Visit Dermatology at [place] [address] [place] [address] Marek Bonilla MD [address], [place] [address] documented as of this encounter Procedures Procedure Name Priority Date/Time Associated Diagnosis Comments MAMMO SCREENING CAD BILATERAL Routine 06/05/2021 11:42 AM EDT documented in this encounter Results * Mammo Screening Cad Bilateral (06/05/2021 11:42 AM EDT) PT CLASS O RAD ADMITDTTM RAD PT RAD INFO [id number]^EV ERETT^WINTER^E RAD EXAM DESC MADDSC^SCREEN MAMMO BL [...] have questions please contact the health post anesthesia care unit nurse that requested your imaging first. ? Electronically signed by: Rocael Villatoro MD, [facility] ([phone]), at 06/05/2021 1:27 PM Narrative 06/05/2021 1:27 [...] who have questions please contactthe health post anesthesia care unit nurse that requested your imaging first. Electronically signed by: Rocael Villatoro MD, [facility]([phone]), at 06/05/2021 1:27 PM [place] Quiroga APRN IMG MAMMO ORDERABLE S documented in this encounter Visit Diagnoses Not on filedocumented in this encounter Care Teams Ambulance Driver Relationship Specialty Start Date End Date [place] Quiroga APRN PCP - General Family Medicine 03/24/16 02/04/23 documented as of this encounter
--- OUTSIDE RECORDS SUMMARY | 2024-06-22 14:13 | XMS_ITS | Encounter Summary ---
Author Organization [facility] Erika [facility] [place] [address] Care Team Providers Care Staff Physical Therapy Assistant Name Role Phone Magdalena Acosta MD Primary Care Provider [phone] Encounter Details Date Type Department Care Team [...] EST Office Visit Hematology and Oncology at [place] [phone] Markel Borjas MD [facility] DR HEMATOLOGY [place] [address] 11/02/2024 12:00 PM EDT [place]oint[place] [address] 11/02/2024 1:00 PM EDT Office [place] [address] Magdalena Peralta MD [facility] [place] [address] 03/01/2025 4:15 PM EDT Office Visit Dermatology at [place] [address] [place] [phone] Marek Bonilla MD [address], [place] [address] documented as of this encounter Visit Diagnoses Not on filedocumented in this encounter Care Teams Staff Physical Therapy Assistant Relationship Specialty Start Date End Date Magdalena Acosta MD [address] [place] [address] PCP - General Family Medicine 02/05/23 documented as of this encounter
--- OUTSIDE RECORDS SUMMARY | 2024-06-22 14:13 | XMS_ITS | Encounter Summary ---
Author Organization [facility] [place] [address] Care Team Providers Care Podiatric Surgeon Name Role Phone Magdalena Acosta MD Primary Care Provider [phone] Reason for Referral * Consultation (Routine) - Closed Specialty Diagnoses / Procedures Referred By Contac t Referred To Contact Rheumatology Diagnoses Weakness Kyra Haas MD [facility] [address] [place] [address] [facility] [place] [facility] [place] Rheumatology [address] [place] [phone] Referral ID Status Reason Start Date Expiration Date V isits Requested Visits Authorized [id number] Closed Consult, Test & Treat PCP Updated and/or Approved 02/25/2023 02/25/2024 6 6 Encounter Details Date Type Department Care Team (Late st Contact Info) Description 02/25/2023 Transcribe Orders eDH Incoming Referrals [phone] Magdalena Acosta MD [address] [place] [address] Weakness Social History Tobacco Use [...] Visit Hematology and Oncology at [place] [phone] Markel Borjas MD [facility] DR [place] [address] 11/02/2024 12:00 PM EDT Appointment [place] [address] 11/02/2024 1:00 PM EDT Office [place] [address] Magdalena Peralta MD [facility] [place] [address] 03/01/2025 4:15 PM EDT Office Visit Dermatology at [place] [address] [facility] [place] [phone] Marek Bonilla MD [address] [facility], [place] [address] Scheduled Referrals Name Type Priority Associated Diagnoses Order Schedule Referral to Rheumatology Outpatient Referral Routine Weakness Ordered: 02/25/2023 documented as of this encounter Visit Diagnoses Diagnosis Weakness Other malaise and fatigue documented in this encounter Care Teams Podiatric Surgeon Relationship Specialty Start Date End Date Magdalena Acosta MD [address] [place] [address] PCP - General Family Medicine 02/05/23 documented as of this encounter
--- OUTSIDE RECORDS SUMMARY | 2024-06-22 14:13 | XMS_ITS | Encounter Summary ---
Author Organization [facility] Address [facility] [place] [address] Care Team Providers Care Social Services Specialist Name Role Phone Magdalena Acosta MD Primary Care Provider [phone] Encounter Details Date Type Department Care Team (Late st Contact Info) Description 03/29/2023 Orders Only Cardiology at [address] [address] Ranjan Delgado MD [facility] [place] [address] Severe aortic stenosis (Primary Dx) Social History [...] [place] [address] Markel Borjas MD [facility] [address] HEMATOLOGY AND ONCOLOGY [place], [place] [address] 11/02/2024 12:00 PM EDT Appoint[place] [address] 11/02/2024 1:00 PM EDT Office [place] [address] Magdalena Peralta MD [facility] [place] [address] 03/01/2025 4:15 PM EDT Office Visit Dermatology at [place] [address] [facility] [place] [address] Marek Bonilla MD [address], [address] [place] [address] Scheduled Orders Name Type Priority Associated Diagnoses [...] disorders documented in this encounter Care Teams Social Services Specialist Relationship Specialty Start Date End Date Magdalena Acosta MD [address] [place] [address] PCP - General Family Medicine 02/05/23 documented as of this encounter
--- OUTSIDE RECORDS SUMMARY | 2024-06-22 14:13 | XMS_ITS | Encounter Summary ---
Author Organization [facility] [place] [address] Care Team Providers Care Machined Parts Metal Sprayer Name Role Phone Magdalena Acosta MD Primary Care Provider [phone] Encounter Details Date Type Department Care Team [...] EST Office Visit Hematology and Oncology at [place] [phone] Markel Borjas MD [facility] [address] [place] [address] 11/02/2024 12:00 PM EDT [place]oint[place] [address] 11/02/2024 1:00 PM EDT Office [place] [address] Magdalena Peralta MD [facility] [place] [address] 03/01/2025 4:15 PM EDT Office Visit Dermatology at [place] [address] [place] [phone] Marek Bonilla MD [address], [address] [place] [address] documented as of this encounter Visit Diagnoses Not on filedocumented in this encounter Care Teams Machined Parts Metal Sprayer Relationship Specialty Start Date End Date Magdalena Acosta MD [address] [place] [address] PCP - General Family Medicine 02/05/23 documented as of this encounter
--- OUTSIDE RECORDS SUMMARY | 2024-06-22 14:13 | XMS_ITS | Encounter Summary ---
Author Organization [facility] Address [facility] [place] [address] Care Team Providers Care Brilliandeer Looper Name Role Phone Ashley Quirogazac Shields APRN Primary Care Provider [phone] Encounter Details Date Type Department Care Team (Latest Contact Info) Description 06/22/2022 10:00 AM EST Office [place] [address] Raymond Loredo MD [facility] [place] [address] Raynaud's phenomenon without gangrene; Positive FRANCISCO (antinuclear [...] can be done locally or here at [facility] that the current time [...] for surgery by Dr. Rogers here at [facility]. In addition to painful [...] over radiocarpal or ulnocarpal joints. 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 SJC/TJC 0/0. Knees: Decreased [...] Visit Hematology and Oncology at [place] [phone] Markel Borjas MD [facility] DR HEMATOLOGY [place] [address] 11/02/2024 12:00 PM EDT Appointment Pulmonology at [place] [address] 11/02/2024 1:00 PM EDT Office Visit Rheumatology at [place] [phone] Magdalena Peralta MD [facility] DR [place] [address] 03/01/2025 4:15 PM EDT Office Visit Dermatology at [address] [place] [address] Marek Bonilla MD [address] [place] [address] RD, QU[address] A DERMATOLOGY [place], [place] [address] documented as of this encounter Visit Diagnoses Diagnosis Raynaud's phenomenon without gangrene Positive FRANCISCO (antinuclear antibody) Other and unspecified nonspecific immunological findings Primary osteoarthritis involving multiple joints Cervical disc disorder at C6-C7 level with radiculopathy documented in this encounter Care Teams Brilliandeer Looper Relationship Specialty Start Date End Date Deborah Quiroga APRN PCP - General Family Medicine 03/24/16 02/04/23 documented as of this encounter
--- OUTSIDE RECORDS SUMMARY | 2024-06-22 14:13 | XMS_ITS | Encounter Summary ---
[place] [address] Care Team Providers Care Professor Of Astronomy Name Role Phone Magdalena Acosta MD Primary Care Provider [phone] Reason for Visit * Reason Comments Annual Exam Encounter Details Date Type Department Care Team (Late st Contact Info) Description 02/05/2023 2:30 PM EDT Office Visit Dermatology at [address] [phone] Marek Bonilla MD [address] [facility], TODD A DERMATOLOGY [place], [place] [phone] Rosacea; Ocular rosacea; Nevus Social History Tobacco [...] cutaneous and ocular 2. Previously told by automatic packer operator that she had corneal tears from [...] EST Office Visit [place] [address] Markel Borjas MD [facility] DR HEMATOLOGY [place] [address] 11/02/2024 12:00 PM EDT [place] [address] 11/02/2024 1:00 PM EDT Office [place] [address] Magdalena Peralta MD [facility] [place] [address] 03/01/2025 4:15 PM EDT Office Visit Dermatology at [address] [phone] Marek Bonilla MD [address], TODD A DERMATOLOGY [place], [place] [phone] documented as of this encounter Visit Diagnoses Diagnosis Rosacea Ocular rosacea Rosacea Nevus Benign neoplasm of skin, site unspecified documented in this encounter Care Teams Professor Of Astronomy Relationship Specialty Start Date End Date Magdalena Acosta MD [address] [place] [address] PCP - General Family Medicine 02/05/23 documented as of this encounter
--- OUTSIDE RECORDS SUMMARY | 2024-06-22 14:13 | XMS_ITS | Encounter Summary ---
Author Organization [facility] Erika [facility] [place] [address] Care Team Providers Care Timber Management Professor Name Role Phone Ashley Quirogazac Shields APRN Primary Care Provider [phone] Encounter Details Date Type Department Care Team [...] EST Office Visit Hematology and Oncology at [place] [phone] Markel Borjas MD [facility] [address] HEMATOLOGY [place] [address] 11/02/2024 12:00 PM EDT Appointment [place] [address] 11/02/2024 1:00 PM EDT Office [place] [address] Magdalena Peralta MD [facility] [place] [address] 03/01/2025 4:15 PM EDT Office Visit Dermatology at [place] [address] [place] [address] Marek Bonilla MD [address], [place] [address] documented as of this encounter Visit Diagnoses Not on filedocumented in this encounter Care Teams Timber Management Professor Relationship Specialty Start Date End Date Deborah Quiroga APRN PCP - General Family Medicine 03/24/16 02/04/23 documented as of this encounter
--- OUTSIDE RECORDS SUMMARY | 2024-06-22 14:13 | XMS_ITS | Encounter Summary ---
Author Organization [facility] Erika [facility] [place] [address] Care Team Providers Care Data Management Consultant Name Role Phone Ashley Quirogazac Shields APRN Primary Care Provider [phone] Encounter Details Date Type Department Care Team [...] Visit Hematology and Oncology at [place] [phone] Markel Borjas MD [facility] DR [place]AT[place] [address] 11/02/2024 12:00 PM EDT Appointment [place] [address] 11/02/2024 1:00 PM EDT Office [place] [address] Magdalena Peralta MD [facility] [place] [address] 03/01/2025 4:15 PM EDT Office Visit Dermatology at [place] [address] [place] [address] Marek Bonilla MD [address] [facility] [address] [address] [facility] [address] [address], [address] [place] [address] documented as of this encounter Visit Diagnoses Not on filedocumented in this encounter Care Teams Data Management Consultant Relationship Specialty Start Date End Date Deborah Quiroga APRN PCP - General Family Medicine 03/24/16 02/04/23 documented as of this encounter
--- OUTSIDE RECORDS SUMMARY | 2024-06-22 14:13 | XMS_ITS | Encounter Summary ---
Author Organization [facility] [place] [address] Care Team Providers Care Needle Felt Making Machine Operator Name Role Phone Deborah Quiroga APRN Primary Care Provider Encounter Details Date Type Department Care Team (Late st Contact Info) Description 06/17/2022 Ancillary Procedure Radiology Library at [facility] [place] [address] Deborah Quiroga APRN [address] [place] [phone] Social History Tobacco Use Types Packs/Day [...] EST Office Visit Hematology [place] [address] Markel Borjas MD [facility] [place] [address] 11/02/2024 12:00 PM EDT Appointment [place] [address] 11/02/2024 1:00 PM EDT Office Visit [place] [address] Magdalena Peralta MD [facility] [place] [address] 03/01/2025 4:15 PM EDT Office Visit Dermatology at [place] [address] [facility] [place] [phone] Marek Bonilla MD [address], [place] [address] documented as of this encounter Procedures Procedure Name Priority Date/Time Associated Diagnosis Comments FILM LIBRARY STORAGE ONLY MR SPINE Routine 06/17/2022 12:00 AM EST documented in this encounter Results * Film Library- Storage Only MR Spine (06/17/2022 12:00 AM EST) Narrative [facility] - 06/18/2022 11:00 AM EST This exam is auto-finalizing. It's purpose is for storage only. Deborah Quiroga APRN IMGerman FILM LIBRARY OR DERABLES Performing Organization Address City/State/[facility] Co de Phone Number [place], [place] documented in this encounter Visit Diagnoses Not on filedocumented in this encounter Care Teams Needle Felt Making Machine Operator Relationship Specialty Start Date End Date Deborah Quiroga APRN PCP - General Family Medicine 03/24/16 02/04/23 documented as of this encounter
--- OUTSIDE RECORDS SUMMARY | 2024-06-22 14:13 | XMS_ITS | Encounter Summary ---
Author Organization [facility] [place] [address] Care Team Providers Care Digital Marketing Assistant Name Role Phone Deborah Quiroga APRN Primary Care Provider [phone] Encounter Details Date Type Department Care Team (Latest Contact Info) Description 07/03/2022 12:28 PM EST - 07/03/2022 1:35 PM EST Hospital Encounter [place]ematology [place] [address] Chronic idiopathic neutropenia Discharge Disposition: Home Social [...] EST Office Visit Hematology [place] [phone] Markel Borjas MD [facility] DR [place] [address] 11/02/2024 12:00 PM EDT Appointment [place] [phone] 11/02/2024 1:00 PM EDT Office [place] [phone] Magdalena Peralta MD [facility] [place] [address] 03/01/2025 4:15 PM EDT Office Visit Dermatology at [place] [address] [facility] [place] [phone] Marek Bonilla MD [address] [place] [address] RD, [place] [address] documented as of this encounter Procedures Procedure [...] [facility] Lymph % 18.4 % [facility] Lymphocytes Abs 0.7(L) 0.9 - 3.2 x10(3)/mc L [facility] Monocyte % 8.4 % [facility] Monocyte Abs 0.3 0.3 - 0.9 x10(3)/mc L [facility] Eos % 0.0 % [facility] Eosinophils Abs 0.0 0.0 - 0.4 x10(3)/mc L [facility] Basophil % 0.3 % [facility] Baso Absolute [...] MD HEMATOLOGY ORDERAB LES [facility] [place] [address] * (ABNORMAL) Hemogram (07/03/2022 12:40 PM EST) White Blood Cell 3.6(L) 4.0 - 9.5 x10(3)/[facility] Red Blood Cell 3.61(L) 4.00 - 5.21 x10(6)/[facility] Hemoglobin 11.7 11.7 - 15.5 g/dL [facility] Hematocrit 34.5(L) 35.7 - 45.8 % [facility] Mean Cell Volume 95.6(H) 82.6 - 94.4 fL [facility] Mean Cell Hemoglobin 32.4(H) 27.1 - 32.0 pg [facility] Mean Cell Hemoglobin Concentration 33.9 31.7 - 35.0 g/dL [facility] Platelet 171 145 - 357 x10(3)/[facility] LABORATORY RDW Standard Deviation 40.5 37.0 - [address].0 [facility]ATORY RDW coefficient of variation 11.5 11.5 - 14.1 % [facility] Mean Platelet Volume 9.2 7.6 - 12.9 fL [facility] NRBC% auto 0.0 % [facility] NRBC Absolute 0.000 0.000 - 0.000 x10(3)/ L [facility] Blood 07/03/2022 12:4 0 PM EST 07/03/2022 1:03 PM EST Narrative Resulting Agency Comment Spec In Lab Markel Borjas MD HEMATOLOGY ORDERAB LES [facility] [place] [address] * (ABNORMAL) Comprehensive metabolic panel (non-fasting) (07/03/2022 [...] MD CHEMISTRY ORDERABL ES [facility] [place] [id number] documented in this encounter Visit Diagnoses Diagnosis Chronic idiopathic neutropenia Other neutropenia documented in this encounter Care Teams Digital Marketing Assistant Relationship Specialty Start Date End Date Deborah Quiroga APRN PCP - General Family Medicine 03/24/16 02/04/23 documented as of this encounter
--- OUTSIDE RECORDS SUMMARY | 2024-06-22 14:13 | XMS_ITS | Encounter Summary ---
Author Organization [facility] [place] [address] Care Team Providers Care Land Surveying Party Chief Name Role Phone Deborah Quiroga APRN Primary Care Provider Encounter Details Date Type Department Care Team (Late st Contact Info) Description 06/08/2022 Ancillary Procedure Radiology Library at [facility] [place] [address] Deborah Quiroga APRN [address] [place] [phone] Social History Tobacco Use Types Packs/Day [...] EST Office Visit [place] [phone] Markel Borjas MD [facility] HEMATOLOGY [place] [address] 11/02/2024 12:00 PM EDT [place] [phone] 11/02/2024 1:00 PM EDT Office [place] [address] Magdalena Peralta MD [facility] [place] [address] 03/01/2025 4:15 PM EDT Office Visit Dermatology at [place] [address] [facility] [place] [phone] Marek Bonilla MD [address], [place] [address] documented as of this encounter Procedures Procedure Name Priority Date/Time Associated Diagnosis Comments FILM LIBRARY STORAGE ONLY DX SPINE Routine 06/08/2022 12:00 AM EST documented in this encounter Results * Film Library- Storage Only DX Spine (06/08/2022 12:00 AM EST) Narrative [facility] - 06/18/2022 10:57 AM EST This exam is auto-finalizing. It's purpose is for storage only. Deborah Quiroga APRN IMGerman FILM LIBRARY OR DERABLES Performing Organization Address City/State/[facility] Co de Phone Number [place], [place] documented in this encounter Visit Diagnoses Not on filedocumented in this encounter Care Teams Land Surveying Party Chief Relationship Specialty Start Date End Date Deborah Quiroga APRN PCP - General Family Medicine 03/24/16 02/04/23 documented as of this encounter
--- OUTSIDE RECORDS SUMMARY | 2024-06-22 14:13 | XMS_ITS | Encounter Summary ---
Author Organization [facility] [place] [address] Care Team Providers Care Casing Soaker Name Role Phone Magdalena Acosta MD Primary Care Provider Encounter Details Date Type Department Care Team (Latest Contact Info) Description 02/05/2023 9:33 PM EDT - 02/05/2023 11:59 PM EDT [place] [phone] Discharge Disposition: Home Social History Tobacco Use [...] Office Visit Hematology [place] [phone] Markel Borjas MD [facility] [place] [address] 11/02/2024 12:00 PM EDT Appointment [place] [phone] 11/02/2024 1:00 PM EDT Office [place] [address] Magdalena Peralta MD [facility] [place] [address] 03/01/2025 4:15 PM EDT Office Visit Dermatology at [address] [place] [address] Marek Bonilla MD [address], [place] [address] documented as of this encounter Procedures Procedure Name Priority Date/Time Associated Diagnosis Comments SURGICAL PATHOLOGY REPORT Routine 02/05/2023 3:00 PM EDT documented in this encounter Results * Surgical Pathology Report (02/05/2023 3:00 PM EDT) Final Diagnosis [id number] ? Location: OPW The signing pathologist has (i) examined the relevant preparation(s) for the specimen(s) and (ii) rendered or confirmed the diagnosis(es). . ?Surgical Pathology DIAGNOSIS Left upper back, skin punch biopsy: - ??Compound dysplastic ??melanocytic nevus with moderate atypia, transected at peripheral specimen edges ?? (see discussion) Electronically signed by: ?Vanna CULP, Jesse Shields Verified: ??02/16/2023 8:04 ?? Dermatopathologist Performed at: ??-[facility] Dept. of Pathology, [place] [address] Field Underwriter: Kunal Rubi MD, FCAP, ??CLIA Certificate: [id number] DISCUSSION If there is an obvious clinical [...] EDT Marek Bonilla MD PATHOLOGY/CYTOLOGY O RDERABLES [facility] [address] [facility] [place] [address] documented in this encounter Visit Diagnoses Not on filedocumented in this encounter Care Teams Casing Soaker Relationship Specialty Start Date End Date Magdalena Acosta MD [address] [place] [address] PCP - General Family Medicine 02/05/23 documented as of this encounter
--- OUTSIDE RECORDS SUMMARY | 2024-06-22 14:13 | XMS_ITS | Encounter Summary ---
Author Organization [facility] Address [facility] [place] [address] Care Team Providers Care Cosmetics Counter Manager Name Role Phone Junaid Deborah Shields APRN Primary Care Provider [phone] Reason for Referral * Consultation (Routine) - Closed Specialty Diagnoses / Procedures Referred By Contac t Referred To Contact Neurology Diagnoses Neck pain Popeye [place] MD [facility] [address] Kyra aHas MD [facility] [address] [address] Referral ID Status Reason Start Date Expiration Date V isits Requested Visits Authorized [id number] Closed Consult, Test & Treat 06/29/2022 06/29/2023 1 1 Reason for Visit * Reason Comments Neck Pain Weak in both arms, p ain and tingling in arms and hands Encounter Details Date Type Department Care Team (Late st Contact Info) Description 06/29/2022 10:20 AM EST Office Visit [place] [address] Popeye [place] MD [facility] [place] [address] Neck pain Social History Tobacco Use Types [...] have EMG and nerve conduction studies in [place] that showed carpal tunnel syndrome. I do not have a copy of that report. documented in this encounter Plan of Treatment Upcoming Encounters Date Type Department Care Team (Late st Contact Info) Description 06/23/2024 2:00 PM EST Office Visit Hematology and Oncology at [place] [phone] Markel Borjas MD [facility] [address] [place] [address] 11/02/2024 12:00 PM EDT Appointment Pulmonology at [place] [address] 11/02/2024 1:00 PM EDT Office Visit Rheumatology at [place] [phone] Magdalena Peralta MD [facility] [place] [address] 03/01/2025 4:15 PM EDT Office Visit Dermatology at [place] [address] [facility] [place] [phone] Marek Bonilla MD [address] [facility], [place] [address] Scheduled Referrals Name Type Priority Associated Diagnoses Orde r Schedule Referral to Neurology Outpatient Referral Routine Neck pain Ordered: 06/29/2022 documented as of this encounter Visit Diagnoses Diagnosis Neck pain Cervicalgia documented in this encounter Care Teams Cosmetics Counter Manager Relationship Specialty Start Date End Date Deborah Quiroga, HAND BOOTMAKER PCP - General Family Medicine 03/24/16 02/04/23 documented as of this encounter
--- OUTSIDE RECORDS SUMMARY | 2024-06-22 14:13 | XMS_ITS | Encounter Summary ---
Author Organization [facility] Address [facility] [place] [address] Care Team Providers Care Oil Field Technician Name Role Phone Deborah Quiroga APRN Primary Care Provider [phone] Reason for Visit * Reason Comments Follow-up Encounter Details Date Type Department Care Team (Late st Contact Info) Description 07/03/2022 1:30 PM EST Office Visit [place]ology [place] [address] Markel Borjas MD [facility] [address] [place] [address] Consuelo Sommer APRN [facility] [address] [place] [address] Chronic idiopathic neutropenia; Dysuria Social History Tobacco [...] PM EST Hematology Outpatient Clinic [facility] Hematology Outpatient Consult Note CC: [id number] [...] TOUCH PREP, CLOT SECTION, CORE ??BIOPSY); [OSR# [id number], COLLECTED 06/23/2016, 19 SLIDES]: ?1. 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 Extremities: No edema. Labs: Hgb= 11.7 Dnyo=882 ANC= 2.5 Imaging As above - reviewed [...] EST Office Visit H[place] [address] Markel Borjas MD [facility] [address] [place] [address] 11/02/2024 12:00 PM EDT Appoint[place] [address] 11/02/2024 1:00 PM EDT Office [place] [phone] Magdalena Peralta MD [facility] [place] [address] 03/01/2025 4:15 PM EDT Office Visit Dermatology at [address] [place] [phone] Marek Bonilla MD [address] [facility], [place] [address] documented as of this encounter Procedures Procedure [...] GEN ERAL ORDERABLES [facility] [place] [address] * (ABNORMAL) Urinalysis Microscopic Exam (07/03/2022 2:00 [...] Borjas MD URINE ORDERABLES Performing Organization Address City/[facility]/ZIP Co de Phone Number [facility] [place] [address] * (ABNORMAL) Urinalysis with reflex Culture (07/03/2022 [...] [place] [facility] Appearance, Urine Dipstick Clear Clear [facility] Specific [place] Urine Automated 1.022 1.005 - 1.030 [facility] Color, Urine Dipstick Yellow Yellow [facility] Reflex to Culture Yes [facility] Clean Catch Urine 07/03/2022 2:00 PM EST 07/03/2022 2:29 PM EST Narrative Resulting Agency Comment Spec In Lab Markel Borjas MD URINE ORDERABLES Performing Organization Address City/[facility]/ZIP Co de Phone Number [facility] [place] [address] * (ABNORMAL) Comprehensive metabolic panel (non-fasting) (07/03/2022 [...] Address City/State/[facility] Co de Phone Number [facility] [place] [phone] documented in this encounter Visit Diagnoses Diagnosis Chronic idiopathic neutropenia Other neutropenia Dysuria documented in this encounter Care Teams Oil Field Technician Relationship Specialty Start Date End Date Deborah Quiroga APRN PCP - General Family Medicine 03/24/16 02/04/23 documented as of this encounter
--- OUTSIDE RECORDS SUMMARY | 2024-06-22 14:13 | XMS_ITS | Encounter Summary ---
Author Organization [facility] [place] [address] Care Team Providers Care Carbon Paper Coating Machine Setter Name Role Phone Magdalena Acosta MD Primary Care Provider Encounter Details Date Type Department Care Team (Late st Contact Info) Description 02/17/2023 2:00 PM EDT Office [place] [phone] Alirio Esparza MD Aortic valve stenosis, etiology [...] Visit Hematology and Oncology at [place] [phone] Markel Borjas MD [facility] DR HEMATOLOGY [place] [address] 11/02/2024 12:00 PM EDT Appointment Pulmonology at [place] [address] 11/02/2024 1:00 PM EDT Office Visit Rheumatology at [place] [phone] Magdalena Peralta MD [facility] DR [place] [address] 03/01/2025 4:15 PM EDT Office Visit Dermatology at [address] [place] [phone] Marek Bonilla MD [address], [place] [address] documented as of this encounter Visit Diagnoses Diagnosis Aortic valve stenosis, etiology of cardiac valve disease unspecified documented in this encounter Care Teams Carbon Paper Coating Machine Setter Relationship Specialty Start Date End Date Magdalena Acosta MD [address] [place] [address] PCP - General Family Medicine 02/05/23 documented as of this encounter
--- OUTSIDE RECORDS SUMMARY | 2024-06-22 14:13 | XMS_ITS | Encounter Summary ---
Author Organization [facility] Address [facility] [address] Care Team Providers Care Banking Supervisor Name Role Phone Deborah Quiroga APRN Primary Care Provider [phone] Encounter Details Date Type Department Care Team (Latest Contact Info) Description 07/03/2022 1:36 PM EST - 07/03/2022 11:59 PM EST Hospital Encounter Hematology [place] [address] Discharge Disposition: Home Social History Tobacco Use [...] Hematology [place] [address] Markel Borjas MD [facility] [place] [address] 11/02/2024 12:00 PM EDT Appointment [place] [phone] 11/02/2024 1:00 PM EDT Office [place] [address] Magdalena Peralta MD [facility] [place] [address] 03/01/2025 4:15 PM EDT Office Visit Dermatology at [place] [address] [facility] [place] [phone] Marek Bonilla MD [address] [facility] [address], [place] [address] documented as of this encounter Procedures Procedure [...] Address City/[facility]/ZIP Co de Phone Number [facility] [place] [address] * Vitamin B12 (07/03/2022 1:59 PM EST) Vitamin B12 449 232 - 1,245 pg/mL [facility] Blood Venous Draw / Unknown 07/03/2022 1:59 PM EST 07/03/2022 2:13 PM EST Narrative Resulting Agency Comment Spec In Lab Markel Borjas MD CHEMISTRY ORDERABL ES [facility] [place] [address] documented in this encounter Visit Diagnoses Not on filedocumented in this encounter Care Teams Banking Supervisor Relationship Specialty Start Date End Date Deborah Quiroga APRN PCP - General Family Medicine 03/24/16 02/04/23 documented as of this encounter
--- OUTSIDE RECORDS SUMMARY | 2024-06-22 14:13 | XMS_ITS | Encounter Summary ---
Author Organization [facility] [place] [address] Care Team Providers Care Route Aide Name Role Phone Junaid Deborah Shields APRN Primary Care Provider [phone]- [phone] Encounter Details Date Type Department Care Team (Latest Contact Info) Description 11/09/2022 10:37 AM EDT - 11/09/2022 4:53 PM EDT Hospital Encounter [place] [address] Nitesh Escobedo MD [facility] [place] [address] Aortic valve stenosis, etiology of cardiac valve [...] through the [facility] Ramp Supervisor . Issues afterhours and on weekends will be handled by the Hospitalist staff on-call. * Attachments The following attachments cannot be sent through Care Everywhere. * Coronary Angiogram: Post-op (Serbian) * Right Heart Catheterization: Pulmonary Artery Catheterization: Post-op (Serbian) documented in this encounter Medications at Time [...] 180 mg by mouth daily. 04/28/2022 05/22/2023 doxycycline (VIBRAMYCIN) 50 mg Capsule Take [...] as needed. 45 g 5 01/09/2022 05/22/2023 meTOPROLOL tartrate (LOPRESSOR) 25 mg Tablet [...] Pre-Procedure H&P Update: Cardiac Catheterization Purnima Thacker [id number] 1955 Chief Complaint: BONILLA HPI: Purnima Thacker [...] AM [facility] Pager: [phone] documented in this encounter Plan of Treatment Upcoming Encounters Date Type Department Care Team (Late st Contact Info) Description 06/23/2024 2:00 PM EST Office Visit Hematology [place] [address] Markel Borjas MD [facility] [address] HEMATOLOGY [place] [address] 11/02/2024 12:00 PM EDT Appointment [place] [phone] 11/02/2024 1:00 PM EDT Office [place] [phone] Magdalena Peralta MD [facility] [place] [address] 03/01/2025 4:15 PM EDT Office Visit Dermatology at [place] [address] [facility] [address] [place] [address] Marek Bonilla MD [address] [facility] [address], [place] [address] documented as of this encounter Procedures Procedure Name Priority Date/Time Associated Diagnosis Comments CARDIAC CATHETERIZATION Routine 11/10/19 23 1:05 PM EDT Aortic valve stenosis, etiology of cardiac valve disease unspecified Cath [facility] Left Heart Cath & Arts W/Inj & Angio Img S&I ([id number]) 11/09/2022 11:51 AM EDT Aortic valve stenosis, etiology of cardiac valve disease unspecified EKG 12-LEAD Routine 11/09/2022 11:17 AM EDT Aortic valve stenosis, etiology of cardiac valve disease unspecified documented in this encounter Results * CARDIAC CATHETERIZATION (11/09/2022 1:05 PM EDT) Anatomical Region Laterality Modality Other Narrative 11/09/2022 2:01 PM EDT ?[facility] ? Cardiac Catheterization/Intervention Report ? Patient Name: Kirstie, Purnima M. ? Procedure Date: 11/09/2022 ? A #: [id number] ? Primary Physician: Nitesh Escobedo ? Case #: [id number] ? File Name: [id number] ? Catheterization Order Number: [id number] ? [facility] ? Final Report [place], [place] ? Patient Name: ? Purnima M. Kirstie ? ID#: ?[id number] ? : ?1955 ? Procedure Date: ? [...] designated as ASA Class III. The [facility] clinical frailty scale ?is 4: [...] (Bezet) 457 ms MUSE SYSTEM Calculated P [place] 44 degrees MUSE SYSTEM Calculated R [place] 33 degrees MUSE SYSTEM Calculated T [place] 30 degrees MUSE SYSTEM INTERPRETATION Sinus rhythm Occasional Premature ventricular complexes Otherwise normal ECG When compared with ECG of 21-SEP-2016 12:26, Premature ventricular complexes are now Present [place] interval has decreased Nonspecific T wave abnormality has replaced inverted T waves in Inferior leads I personally reviewed the tracing and edited the fellows interpretation Confirmed by fellow MD Anitha, Carissa ([id number]) on 11/09/2022 6:17:28 PM Confirmed by Elsa Linares MD ([id number]) on 11/10/2022 3:47:14 PM MUSE SYSTEM 11/09/2022 [...] MD) documented in this encounter Care Teams Route Aide Relationship Specialty Start Date End Date Deborah Quiroga, HEALTHCARE ANALYST PCP - General Family Medicine 03/24/16 02/04/23 documented as of this encounter
--- OUTSIDE RECORDS SUMMARY | 2024-06-22 14:13 | XMS_ITS | Encounter Summary ---
Author Organization [facility] [place] [address] Care Team Providers Care House Mover Helper Name Role Phone Magdalena Acosta MD Primary Care Provider [phone] Encounter Details Date Type Department Care Team [...] Visit Hematology and Oncology at [place] [phone] Markel Borjas MD [facility] [address] [place] [address] 11/02/2024 12:00 PM EDT [place] [address] 11/02/2024 1:00 PM EDT Office [place] [address] Magdalena Peralta MD [facility] [place] [address] 03/01/2025 4:15 PM EDT Office Visit Dermatology at [place] [address] [place] [address] Marek Bonilla MD [address] [facility], [place] [address] documented as of this encounter Visit Diagnoses Not on filedocumented in this encounter Care Teams House Mover Helper Relationship Specialty Start Date End Date Magdalena Acosta MD [address] [place] [address] PCP - General Family Medicine 02/05/23 documented as of this encounter
--- OUTSIDE RECORDS SUMMARY | 2024-06-22 14:13 | XMS_ITS | Encounter Summary ---
Author Organization Formerly [facility] [place] [address] Care Team Providers Care Electrician'S Assistant Name Role Phone Winter Quiroga APRN Primary Care Provider [phone]- [phone] Encounter Details Date Type Department Care Team (Late st Contact Info) Description 06/05/2021 Interpretation Only [address] [phone] Winter Quiroga APRN [address] [phone] Social History Tobacco Use Types Packs/Day Years [...] EST Office Visit Hematology [place] [phone] Markel Borjas MD [facility] [address] [place] [address] 11/02/2024 12:00 PM EDT Appointment [place] [phone] 11/02/2024 1:00 PM EDT Office [place] [address] Magdalena Peralta MD [facility] [place] [address] 03/01/2025 4:15 PM EDT Office Visit Dermatology at [place] [address] [place] [address] Marek Bonilla MD [address], [place] [address] documented as of this encounter Procedures Procedure Name Priority Date/Time Associated Diagnosis Comments DXA CENTRAL SPINE, HIP, AND/OR WHOLE BODY (GENERIC) Routine 06/05/2021 11:58 AM EDT documented in this encounter Results * DXA Central Spine, Hip, and/or Whole Body (Generic) (06/05/2021 11:58 AM EDT) PT CLASS O RAD ADMITDTTM RAD PT RAD INFO [id number]^E VERETT^WINTER ^E RAD EXAM DESC XDXAC^DEXA SCAN [...] please contact the health child care associate teacher that requested your imaging first. ? Electronically signed by: Rocael Vilaltoro MD, [facility] ([phone]), at 06/05/2021 12:00 PM Narrative 06/05/2021 12:00 [...] questions please contactthe health child care associate teacher that requested your imaging first. Electronically signed by: Rocael Villatoro MD, [facility]([phone]), at 06/05/2021 12:00 PM Winter Quiroga APRN IMGerman DEXA ORDERABLES documented in this encounter Visit Diagnoses Not on filedocumented in this encounter Care Teams Electrician'S Assistant Relationship Specialty Start Date End Date Winter Quiroga APRN PCP - General Family Medicine 03/24/16 02/04/23 documented as of this encounter
--- OUTSIDE RECORDS SUMMARY | 2024-06-22 14:13 | XMS_ITS | Encounter Summary ---
Author Organization [facility] [place] [address] Care Team Providers Care Rental Coordinator Name Role Phone Deborah Quiroga APRN Primary Care Provider [phone] Reason for Referral * Consultation (Routine) - Closed Specialty Diagnoses / Procedures Referred By Crispin maxwell Referred To Contact Neurology Diagnoses Polyneuropathy Deborah Quiroga APRN [address] [place] [address] [facility] Neurology [address] [place] [address] Referral ID Status Reason Start Date Expiration Date V isits Requested Visits Authorized [id number] Closed Consult, Test & Treat 10/29/2022 10/29/2023 1 1 Encounter Details Date Type Department Care Team (Latest Contact Info) Description 10/29/2022 Transcribe Orders eDH Incoming Referrals [phone] Deborah Quiroga APRN [address] [place] [address] Polyneuropathy (Primary Dx) Social History [...] EST Office Visit H[place] [address] [facility] [address] HEMATOLOGY [place] [address] 11/02/2024 12:00 PM EDT Appoint[place] [phone] 11/02/2024 1:00 PM EDT Office [place] [phone] [facility] [address] [place] [address] 03/01/2025 4:15 PM EDT Office Visit Dermatology at [place] [address] [facility] [address] [facility] [address] [place] [phone] Marek Bonilla MD [address] [facility] [place] [address] Scheduled Referrals Name Type Priority Associated Diagnoses Orde r Schedule Referral to Neurology Outpatient Referral Routine Polyneuropathy Ordered: 10/29/2022 documented as of this encounter Visit Diagnoses Diagnosis Polyneuropathy- Primary Unspecified hereditary and idiopathic peripheral neuropathy documented in this encounter Care Teams Rental Coordinator Relationship Specialty Start Date End Date Deborah Quiroga APRN PCP - General Family Medicine 03/24/16 02/04/23 documented as of this encounter
--- OUTSIDE RECORDS SUMMARY | 2024-06-22 14:13 | XMS_ITS | Encounter Summary ---
Author Organization [facility] [place] [address] Care Team Providers Care Rubber Tubing Backer Name Role Phone Magdalena Acosta MD Primary Care Provider [phone] Encounter Details Date Type Department Care Team (Latest Contact Info) Description 03/18/2023 2:30 PM EDT Laboratory Appointment Lab [place] [address] Positive FRANCISCO (antinuclear antibody) Social [...] EST Office Visit [place]ology [place] [address] Markel Borjas MD [facility] [address] [place] [address] 11/02/2024 12:00 PM EDT [place]ointment [place] [address] 11/02/2024 1:00 PM EDT Office [place] [address] Magdalena Peralta MD [facility] [place] [address] 03/01/2025 4:15 PM EDT Office Visit Dermatology at [place] [address] [place] [phone] Marek Bonilla MD [address], [place] [address] documented as of this encounter Procedures Procedure [...] 2:14 PM EDT) Neutrophil % 71.2 % [facility] Neutrophil Absolute 2.26 1.70 - 6.10 x10(3)/mc L [facility] Lymph % 18.2 % [facility] Lymphocytes Abs 0.6(L) 0.9 - 3.2 x10(3)/mc L [facility] Monocyte % 9.7 % [facility] Monocyte Abs 0.3 0.3 - 0.9 x10(3)/ L [facility] Eos % 0.3 % [facility] Eosinophils Abs 0.0 0.0 - 0.4 x10(3)/mc L [facility] Basophil % 0.6 % [facility] Baso Absolute 0.0 0.0 - 0.1 x10(3)/mc L [facility] Immature Gran % 0.00 % [facility] Comment: Immature granulocytes(IG's)percentage and absolute count will include metamyelocytes, myelocytes, and promyelocytes. Blood smears from CBCs yielding IG's will be scanned manually for concordance. If this scan disagrees with the automated IG or if promyelocytes are noted, a manual differential will be performed. Immature Gran Absolute 0.00 0.00 - 0.04 x10(3)/mc L [facility] Blood 03/18/2023 2:14 PM EDT 03/18/2023 2:24 PM EDT Narrative Resulting Agency Comment Spec In Lab Magdalena Peralta MD HEMATOLOGY ORDERABLE S [facility] [place] [address] * (ABNORMAL) Hemogram (03/18/2023 2:14 PM EDT) White Blood Cell 3.2(L) 4.0 - 9.5 x10(3)/mc L [facility] Red Blood Cell 3.44(L) 4.00 - 5.21 x10(6)/mc L [facility] Hemoglobin 11.1(L) 11.7 - 15.5 g/dL [facility] Hematocrit 32.9(L) 35.7 - 45.8 % [facility] Mean Cell Volume 95.6(H) 82.6 - 94.4 fL [facility] Mean Cell Hemoglobin 32.3(H) 27.1 [...] [facility] NRBC% auto 0.0 % [facility] NRBC Absolute 0.000 0.000 - 0.000 x10(3)/mc L [facility] Blood 03/18/2023 2:14 PM EDT 03/18/2023 2:24 PM EDT Narrative Resulting Agency Comment Spec In Lab Magdalena Peralta MD HEMATOLOGY ORDERABLE S Performing Organization Address City/[facility] Co de Phone Number [facility] [place] [address] * (ABNORMAL) Sedimentation rate (03/18/2023 2:14 PM [...] DO HEMATOLOGY ORDERAB LES Performing Organization Address City/[facility]/ZIP Co de Phone Number [facility] [place] [address] * CRP, acute inflammation (03/18/2023 2:14 PM EDT) C-Reactive Protein 3.0 <=4.9 mg/L [facility] Blood 03/18/2023 2:14 PM EDT 03/18/2023 2:24 PM EDT Narrative Resulting Agency Comment Spec In Lab Kia D Wander DO CHEMISTRY ORDERABL ES Performing Organization Address City/[facility]/ZIP Co de Phone Number [facility] [place] [address] * C3 Complement (03/18/2023 2:14 PM EDT) Complement C3 142 90 - 180 mg/dL [facility] Blood 03/18/2023 2:14 PM EDT 03/18/2023 2:24 PM EDT Narrative Resulting Agency Comment Spec In Lab Kia D Wander DO CHEMISTRY ORDERABL ES Performing Organization Address City/[facility]/ZIP Co de Phone Number [facility] [place] [place] [address] * C4 Complement (03/18/2023 2:14 PM EDT) Complement C4 30 10 - 40 mg/dL [facility] Blood 03/18/2023 2:14 PM EDT 03/18/2023 2:24 PM EDT Narrative Resulting Agency Comment Spec In Lab Kia D Wander DO CHEMISTRY ORDERABL ES Performing Organization Address City/[facility]/ZIP Co de Phone Number [facility] [place] [address] * CK (03/18/2023 2:14 PM EDT) Creatine Kinase 38 0 - 160 unit/L [facility] Blood 03/18/2023 2:14 PM EDT 03/18/2023 2:24 PM EDT Narrative Resulting Agency Comment Spec In Lab Kia Viramontes DO CHEMISTRY ORDERABL ES Performing Organization Address City/[facility]/ZIP Co de Phone Number [facility] [place] [address] * DNA Antibody (Double-Stranded) (03/18/2023 2:14 PM EDT) dsDNA Ab <0.6 <=15.0 IU/mL [facility] Comment: <10 negative 10-15 equivocal >15 positive This dsDNA antibody result was generated using a fluoroenzyme immunoassay on the [employer] 250 analyzer. This quantitative test is designed [...] ORDER JODIE Performing Organization Address [facility] Co de Phone Number [facility] [place] [address] * (ABNORMAL) FRANCISCO Ab by IFA (03/18/2023 2:14 PM EDT) FRANCISCO Ab Screen Test ? Result ?Flag ??Unit ??RefValue Antinuclear Ab, HEp-2 ?Positive 1:2560 ??@ ?<1:80 (Negative) ??Substrate, S ? ADDITIONAL INFORMATION --------- ?Method: Immunofluorescence using HEp-2 cellular substrate. ??FRANCISCO Titer: ? 1:2560 ??FRANCISCO Pattern: ? Speckled ?Test Performed by: ?[facility] ?[address] [place] [address] ?Belt Operator: Raymond Chaudhry M.D. Ph.D.; CLIA# [id number] ([id number]) [facility] Blood 03/18/2023 2:14 PM EDT 03/18/2023 3:02 PM EDT Narrative Resulting Agency Comment Spec In Lab Kia Viramontes DO CHEMISTRY ORDERABL ES [facility] [place] [address] * Comprehensive metabolic panel (non-fasting) (03/18/2023 2:14 [...] [facility] Co de Phone Number [facility] [place] [address] documented in this encounter Visit Diagnoses Diagnosis Positive FRANCISCO (antinuclear antibody) Other and unspecified nonspecific immunological findings documented in this encounter Care Teams Rubber Tubing Backer Relationship Specialty Start Date End Date Magdalena Acosta MD [address] [place] [address] PCP - General Family Medicine 02/05/23 documented as of this encounter
--- OUTSIDE RECORDS SUMMARY | 2024-06-22 14:13 | XMS_ITS | Encounter Summary ---
Author Organization [facility] [place] [address] Care Team Providers Care Critical Care Unit Nurse Name Role Phone Deborah Quiroga APRN Primary Care Provider [phone] Encounter Details Date Type Department Care Team (Late st Contact Info) Description 11/09/2022 11:30 AM EDT - 11/09/2022 12:30 PM EDT [place] [address] Nitesh Escobedo MD [facility] [place] [address] CARDIAC CATHETERIZATION Social History Tobacco Use Types [...] Center 02/05/2023 2:30 PM Marek Bonilla MD [facility] New Medications to be Picked Up None For questions regarding this document or issues relating to this hospitalization on the Medical Service, please contact your inpatient physician through the [facility] Wellness Program Manager . Issues afterhours and on weekends will be handled by the Hospitalist staff on-call. * Attachments The following attachments cannot be sent through Care Everywhere. * Coronary Angiogram: Post-op (Cambodian) * Right Heart Catheterization: Pulmonary Artery Catheterization: Post-op (Cambodian) documented in this encounter Medications at Time [...] Pre-Procedure H&P Update: Cardiac Catheterization Purnima Thacker [id number] 1955 Chief Complaint: BONILLA HPI: Purnima Thacker [...] [facility] Pager: [phone] documented in this encounter Plan of Treatment Upcoming Encounters Date Type Department Care Team (Late st Contact Info) Description 06/23/2024 2:00 PM EST Office Visit Hematology [place] [address] Markel Borjas MD [facility] DR HEMATOLOGY [place] [address] 11/02/2024 12:00 PM EDT Appointment [place] [address] 11/02/2024 1:00 PM EDT Office [place] [address] Magdalena Peralta MD [facility] [place] [address] 03/01/2025 4:15 PM EDT Office Visit Dermatology at [place] [address] [place] [address] Marek Bonilla MD [address], [place] [address] documented as of this encounter Procedures Procedure Name Priority Date/Time Associated Diagnosis Comments CARDIAC CATHETERIZATION Routine 11/10/19 1:05 PM EDT Aortic valve stenosis, etiology of cardiac valve disease unspecified Cath [facility] Left Heart Cath & Arts W/Inj & Angio Img S&I ([id number]) 11/09/2022 11:51 AM EDT Aortic valve stenosis, etiology of cardiac valve disease unspecified EKG 12-LEAD Routine 11/09/2022 11:17 AM EDT Aortic valve stenosis, etiology of cardiac valve disease unspecified documented in this encounter Results * CARDIAC CATHETERIZATION (11/09/2022 1:05 PM EDT) Anatomical Region Laterality Modality Other Narrative 11/09/2022 2:01 PM EDT ?[facility] ? Cardiac Catheterization/Intervention Report ? Patient Name: Kirstie, Purnima M. ? Procedure Date: 11/09/2022 ? A #: [id number] ? Primary Physician: Nitesh Escobedo ? Case #: [id number] ? File Name: [id number] ? Catheterization Order Number: [id number] ? [facility] ? Final Report [place], [place] ? Patient Name: ? Purnima M. Kirstie ? ID#: ?[id number] ? : ?1955 ? Procedure Date: ? [...] was designated as ASA Class III. The [facility] clinical frailty scale ?is 4: [...] (Bezet) 457 ms MUSE SYSTEM Calculated P [place] 44 degrees MUSE SYSTEM Calculated R [place] 33 degrees MUSE SYSTEM Calculated T [place] 30 degrees MUSE SYSTEM INTERPRETATION Sinus rhythm Occasional Premature ventricular complexes Otherwise normal ECG When compared with ECG of 21-SEP-2016 12:26, Premature ventricular complexes are now Present AL interval has decreased Nonspecific T wave abnormality has replaced inverted T waves in Inferior leads I personally reviewed the tracing and edited the fellows interpretation Confirmed by fellow MD Anitha, Carissa ([id number]) on 11/09/2022 6:17:28 PM Confirmed by Elsa [...] MD) documented in this encounter Care Teams Critical Care Unit Nurse Relationship Specialty Start Date End Date Deborah Quiroga, SLUNK SKIN CURER PCP - General Family Medicine 03/24/16 02/04/23 documented as of this encounter
--- OUTSIDE RECORDS SUMMARY | 2024-06-22 14:13 | XMS_ITS | Encounter Summary ---
[place] [address] Care Team Providers Care Rn Private Duty Name Role Phone Magdalena Acosta MD Primary Care Provider Reason for Visit * Reason Comments Suture / Staple Removal Encounter Details Date Type Department Care Team (Late st Contact Info) Description 02/16/2023 10:00 AM EDT Office Visit Dermatology at [place] [address] [facility] [place] [address] Marek Bonilla MD [address] [facility] DERMATOLOGY [place], [place] [phone] Visit for suture removal Social History Tobacco [...] Visit [place] [address] Markel Borjas MD [facility] [address] [place] [address] 11/02/2024 12:00 PM EDT [place]oint[place] [address] 11/02/2024 1:00 PM EDT Office [place] [address] Magdalena Peralta MD [facility] DR [place] [address] 03/01/2025 4:15 PM EDT Office Visit Dermatology at [address] [place] [address] Marek Bonilla MD [address], [place] [address] documented as of this encounter Visit Diagnoses Diagnosis Visit for suture removal Encounter for removal of sutures documented in this encounter Care Teams Rn Private Duty Relationship Specialty Start Date End Date Magdalena Acosta MD [address] [place] [address] PCP - General Family Medicine 02/05/23 documented as of this encounter
--- OUTSIDE RECORDS SUMMARY | 2024-06-22 14:13 | XMS_ITS | Encounter Summary ---
Author Organization [facility] Address [facility] [place] [address] Care Team Providers Care Vaccine Customer Representative Name Role Phone Ashley uQirogan [place] ANURAG Primary Care Provider [phone] Encounter Details Date Type Department Care Team (Late st Contact Info) Description 01/14/2023 Refill Dermatology at [address] [address] Lupe Connor RN Social History [...] She would like the medication called into [email or web address] in [facility]. Discussed with Dr. Bonilla and he has approved refill of the Doxycycline 50 mg take one capsule by mouth daily in the evenings dispense 30 capsules with 2 refills. Patient notified. documented in this encounter Plan of Treatment Upcoming Encounters Date Type Department Care Team (Late st Contact Info) Description 06/23/2024 2:00 PM EST Office Visit Hematology and Oncology at [place] [phone] Markel Borjas MD [facility] [address] [place] [address] 11/02/2024 12:00 PM EDT [place] [address] 11/02/2024 1:00 PM EDT Office [place] [address] Magdalena Peralta MD [facility] [place] [address] 03/01/2025 4:15 PM EDT Office Visit Dermatology at [place] [address] [facility] [place] [address] Marek Bonilla MD [address] QUOC A DERMATOLOGY [place], [place] [address] documented as of this encounter Visit Diagnoses Not on filedocumented in this encounter Care Teams Vaccine Customer Representative Relationship Specialty Start Date End Date Deborah Quiroga APRN PCP - General Family Medicine 03/24/16 02/04/23 documented as of this encounter
--- OUTSIDE RECORDS SUMMARY | 2024-06-22 14:13 | XMS_ITS | Encounter Summary ---
[place] [address] Care Team Providers Care Cultural Historian Name Role Phone Ashley Quirogazac Shields APRN Primary Care Provider [phone] Reason for Visit * Reason Comments Annual Exam Encounter Details Date Type Department Care Team (Late st Contact Info) Description 01/09/2022 3:15 PM EDT Office Visit Dermatology at [address] [phone] Marek Bonilla MD [address] [facility] DERMATOLOGY [place], [place] [phone] Rosacea Social History Tobacco Use Types Packs/Day [...] cutaneous and ocular 2. Previously told by dispatcher radio that she had corneal tears from her [...] refills. We will call this into her [facility] in [place] 3. Continue metronidazole 0.75% gel applying every [...] Visit Hematology [place] [address] Markel Borjas MD [facility] [address] HEMATOLOGY [place] [address] 11/02/2024 12:00 PM EDT Appointment [place] [address] 11/02/2024 1:00 PM EDT Office [place] [address] Magdalena Peralta MD [facility] [place] [address] 03/01/2025 4:15 PM EDT Office Visit Dermatology at [place] [address] [facility] [place] [address] Mraek Bonilla MD [address] [place] [address] documented as of this encounter Visit Diagnoses Diagnosis Rosacea documented in this encounter Care Teams Cultural Historian Relationship Specialty Start Date End Date Deborah Quiroga APRN PCP - General Family Medicine 03/24/16 02/04/23 documented as of this encounter
--- OUTSIDE RECORDS SUMMARY | 2024-06-22 14:13 | XMS_ITS | Encounter Summary ---
Author Organization [facility] Address [facility] [place] [address] Care Team Providers Care Resident Care Technician Name Role Phone Deborah Quiroga APRN Primary Care Provider [phone] Reason for Visit * Consultation (Routine) - Closed Specialty Diagnoses / Procedures Referred By Contkrystle t Referred To Contact Rheumatology Diagnoses Positive FRANCISCO (antinuclear antibody) Arthralgia, unspecified joint Sandy Wu APRN [address] [place] [address] [facility] [address] [place] [address] Referral ID Status Reason Start Date Expiration Date V isits Requested Visits Authorized [id number] Closed Consult, Test & Treat PCP Updated and/or Approved 01/01/2022 01/01/2023 6 6 Encounter Details Date Type Department Care Team (Latest Contact Info) Description 01/20/2022 10:00 AM EDT Office [place] [address] Raymond Loredo MD [facility] [place] [address] Rosacea; Raynaud's phenomenon without gangrene; [...] over radiocarpal or ulnocarpal joints. Hands: Normal credit control administrator and claw. SJC/TJC 0/0. Hips: Full [...] can be done locally or here at [facility] that the current time is not particularly interested it seems Raymond Loredo MD documented in this encounter Plan of Treatment Upcoming Encounters Date Type Department Care Team (Late st Contact Info) Description 06/23/2024 2:00 PM EST Office Visit Hematology and Oncology at [place] [phone] Markel Borjas MD [facility] [address] [place] [address] 11/02/2024 12:00 PM EDT Appointment Pulmonology at [place] [address] 11/02/2024 1:00 PM EDT Office Visit Rheumatology at [place] [address] Magdalena Peralta MD [facility] [place] [address] 03/01/2025 4:15 PM EDT Office Visit Dermatology at [place] [address] [place] [address] Marek Bonilla MD [address] [facility] [address] Scheduled Referrals Name Type Priority Associated Diagnoses [...] syndrome documented in this encounter Care Teams Resident Care Technician Relationship Specialty Start Date End Date Deborah Quiroga APRN PCP - General Family Medicine 03/24/16 02/04/23 documented as of this encounter
--- OUTSIDE RECORDS SUMMARY | 2024-06-22 14:13 | XMS_ITS | Encounter Summary ---
Author Organization [facility] [place] [address] Care Team Providers Care Graduate Civil Engineer Name Role Phone Winter Quiroga APRN Primary Care Provider [phone]- [phone] Encounter Details Date Type Department Care Team (Late st Contact Info) Description 06/05/2021 Interpretation Only [address] [address] Winter Quiroga APRN [address] [phone] Social History Tobacco Use Types Packs/Day Years [...] EST Office Visit [place] [phone] Markel Borjas MD [facility] [address] HEMAT[place] [address] 11/02/2024 12:00 PM EDT Appointment [place] [address] 11/02/2024 1:00 PM EDT Office [place] [address] Magdalena Peralta MD [facility] [place] [address] 03/01/2025 4:15 PM EDT Office Visit Dermatology at [place] [address] [place] [address] Marek Bonilla MD [address], [place] [address] documented as of this encounter Procedures Procedure Name Priority Date/Time Associated Diagnosis Comments MAMMO SCREENING CAD AND CATRACHITO BILATERAL Routine 06/05/2021 11:42 AM EDT documented in this encounter Results * Mammo Screening Cad and Catrachito Bilateral (06/05/2021 11:42 AM EDT) PT CLASS O DH RAD ADMITDTTM DH RAD PT DH RAD INFO [id number]^EVERET T^WINTER^E DH RAD EXAM DESC MADDSCTO^BREAST SCREEN [...] have questions please contact the health care transitions nurse that requested your imaging first. ? Electronically signed by: Rocael Villatoro MD, [facility] ([phone]), at 06/05/2021 1:27 PM Narrative 06/05/2021 1:27 [...] who have questions please contactthe health care transitions nurse that requested your imaging first. Electronically signed by: Rocael Villatoro MD, [facility]([phone]), at 06/05/2021 1:27 PM Winter Quiroga APRN IMG MAMMO ORDERABLE S documented in this encounter Visit Diagnoses Not on filedocumented in this encounter Care Teams Graduate Civil Engineer Relationship Specialty Start Date End Date Winter Quiroga APRN PCP - General Family Medicine 03/24/16 02/04/23 documented as of this encounter
--- OUTSIDE RECORDS SUMMARY | 2024-06-22 14:13 | XMS_ITS | Encounter Summary ---
[place] [address] Care Team Providers Care Tank Truck Mechanic Name Role Phone Junaid Deborah Shields APRN Primary Care Provider [phone] Reason for Visit * Reason Comments Follow-up Encounter Details Date Type Department Care Team (Late st Contact Info) Description 01/10/2021 4:30 PM EDT Office Visit Dermatology at [place] [address] [facility] [place] [phone] Marek Bonilla MD [address] [facility], [address] A DERMATOLOGY [place], [place] [address] Rosacea Social History Tobacco Use Types Packs/Day [...] as of this encounter Progress Notes * aMrek Bonilla MD - 01/10/2021 4:30 PM EDT Problem: 1. Follow-up rosacea both cutaneous and ocular 2. Previously told by territory representative that she had corneal tears from her [...] 3 refills. Will call this in her [facility] in [place] 3. Continue metronidazole 0.75% gel applying once [...] EST Office Visit H[place] [address] Markel Borjas MD [facility] [address] HEMATOLOGY [place] [address] 11/02/2024 12:00 PM EDT Appoint[place] [address] 11/02/2024 1:00 PM EDT Office [place] [phone] Magdalena Peralta MD [facility] [place] [address] 03/01/2025 4:15 PM EDT Office Visit Dermatology at [place] [address] [place] [address] Marek Bonilla MD [address], [place] [address] documented as of this encounter Visit Diagnoses Diagnosis Rosacea documented in this encounter Care Teams Tank Truck Mechanic Relationship Specialty Start Date End Date Deborah Quiroga APRN PCP - General Family Medicine 03/24/16 02/04/23 documented as of this encounter
--- OUTSIDE RECORDS SUMMARY | 2024-06-22 14:13 | XMS_ITS | Encounter Summary ---
Author Organization [facility] [place] [address] Care Team Providers Care Armored Car Guard Name Role Phone Ashley Quirogazac Shields APRN Primary Care Provider [phone] Encounter Details Date Type Department Care Team [...] Visit Hematology and Oncology at [place] [phone] Markel Borjas MD [facility] [address] [place] [address] 11/02/2024 12:00 PM EDT [place] [address] 11/02/2024 1:00 PM EDT [place] [address] Magdalena Peralta MD [facility] [place] [address] 03/01/2025 4:15 PM EDT Office Visit Dermatology at [place] [address] [place] [address] Marek Bonilla MD [address], [place] [address] documented as of this encounter Visit Diagnoses Not on filedocumented in this encounter Care Teams Armored Car Guard Relationship Specialty Start Date End Date Deborah Quiroga APRN PCP - General Family Medicine 03/24/16 02/04/23 documented as of this encounter
--- OUTSIDE RECORDS SUMMARY | 2024-06-22 14:13 | XMS_ITS | Encounter Summary ---
Author Organization [facility] [place] [address] Care Team Providers Care Pickle Cutter Name Role Phone JunaidAshley hargrovezac Shields APRN Primary Care Provider [phone]- [phone] Encounter Details Date Type Department Care Team (Late st Contact Info) Description 11/02/2022 [place] [address] Emily Lyons PA [facility] CARDIOLOGY [place], [place] [phone] Aortic valve stenosis, etiology of cardiac valve [...] EST Office Visit [place] [address] Markel Borjas MD [facility] HEMATOLOGY AND ONCOLOGY [place], [place] [address] 11/02/2024 12:00 PM EDT [place] [address] 11/02/2024 1:00 PM EDT Office [place] [address] Magdalena Peralta MD [facility] [place] [address] 03/01/2025 4:15 PM EDT Office Visit Dermatology at [place] [address] [facility] [place] [address] Marek Bonilla MD [address] [facility] [place] [address] documented as of this encounter Visit Diagnoses Diagnosis Aortic valve stenosis, etiology of cardiac valve disease unspecified documented in this encounter Care Teams Pickle Cutter Relationship Specialty Start Date End Date Deborah Quiroga APRN PCP - General Family Medicine 03/24/16 02/04/23 documented as of this encounter
--- OUTSIDE RECORDS SUMMARY | 2024-06-22 14:13 | XMS_ITS | Encounter Summary ---
Author Organization [facility] Address [facility] [place] [address] Care Team Providers Care Land Examiner Name Role Phone Deborah Quiroga ANURAG Primary Care Provider [phone] Encounter Details Date Type Department Care Team (Late st Contact Info) Description 01/09/2022 Refill Dermatology at [address] [phone] Lupe Connor RN Social History Tobacco Use [...] Visit Hematology and Oncology at [place] [phone] Markel Borjas MD [facility] [address] [place] [address] 11/02/2024 12:00 PM EDT [place]oint[place] [address] 11/02/2024 1:00 PM EDT Office Visit Rheumatology at [place] [phone] Magdalena Peralta MD [facility] [place] [address] 03/01/2025 4:15 PM EDT Office Visit Dermatology at [place] [address] [place] [address] Marek Bonilla MD [address], [place] [address] documented as of this encounter Visit Diagnoses Not on filedocumented in this encounter Care Teams Land Examiner Relationship Specialty Start Date End Date Deborah Quiroga APRN PCP - General Family Medicine 03/24/16 02/04/23 documented as of this encounter
--- OUTSIDE RECORDS SUMMARY | 2024-06-22 14:13 | XMS_ITS | Encounter Summary ---
Author Organization [facility] Address [facility] [address] Care Team Providers Care Quality Assurance Coach Name Role Phone Ashley Quirogazac Shields APRN Primary Care Provider [phone] Encounter Details Date Type Department Care Team (Late st Contact Info) Description 01/13/2021 Refill Dermatology at [address] [address] Taylor Malone, ACCOUNT EXECUTIVE Social History Tobacco Use Types Packs/Day Years [...] EST Office Visit [place] [address] Markel Borjas MD [facility] [address] [place] [address] 11/02/2024 12:00 PM EDT [place]oint[place] [address] 11/02/2024 1:00 PM EDT [place] [address] Magdalena Peralta MD [facility] [place] [address] 03/01/2025 4:15 PM EDT Office Visit Dermatology at [place] [address] [place] [address] Marek Bonilla MD [address], [place] [address] documented as of this encounter Visit Diagnoses Not on filedocumented in this encounter Care Teams Quality Assurance Coach Relationship Specialty Start Date End Date Deborah Quiroga APRN PCP - General Family Medicine 03/24/16 02/04/23 documented as of this encounter
--- OUTSIDE RECORDS SUMMARY | 2024-06-22 14:14 | XMS_ITS | Encounter Summary ---
[place] [address] Care Team Providers Care Collection Advisor Name Role Phone Junaid Deborah Shields APRN Primary Care Provider [phone] Reason for Visit * Auth/Cert Specialty Diagnoses / Procedures Referred By Crispin t Referred To Contact Diagnoses Aortic stenosis Procedures PRO REPLACE AORT VALV, PROSTH VALV @REPLACE AORTIC VALVE, OPEN, W\CPB, W\PROSTHETIC VALVE (WRVU 41.32) Referral ID Status Reason Start Date Expiration Date Visits Re quested Visits Authorized [id number] 1 1 Encounter Details Date Type Department Care Team (Late st Contact Info) Description 09/21/2016 7:25 AM EST Anesthesia Event [place] [address] Luis Enrique Quarles MD [facility] [address] [place] [address] Henrik Cooper MD [facility] [place] [address] Anesthesia Record Procedure Summary Procedure Name Responsible [...] 0819 Sternotomy 0844 CV Bypass init 1009 English Language Arts Teacher 1014 An Clamp Remove 1031 CP Bypass [...] Tube 09/21/16 (#28 angled chest tube to [place]: left: pericardial); Left; 09/22/16; 1119 09/21/16 0000 by Toshia Alejandre RN 09/22/16 1119 by Vero Bonilla RN Chest Tube 09/21/16 (#28 straig ht chest tube to [place]; right: mediastinal'); Right; mediastinum; 09/22/16; 1118 09/21/16 0000 by Toshia Alejandre RN 09/22/16 1118 by Vero Bonilla RN (RETIRED) Peripheral IV Line - Single Lumen 09/21/16; 0648; metacarpal vein (top of hand), left; [id number] catheter system; 20 gauge; valdo Arteaga; 09/23/16; [...] Cooper MD - 09/21/2016 6:50 PM EST [facility] Department of Anesthesiology Post-procedure Note Patient: Purnima Thacker Procedure Summary Date Anesthesia Start Anesthesia Stop Room / Location 09/21/16 07 1152 [facility] OR 16 / [facility] MAIN OR Procedure Diagnosis Surgeon Responsible Provider @REPLACE AORTIC VALVE, OPEN, W\CPB, W\PROSTHETIC VALVE (WRVU 41.32) (N/A Chest); @AORTOPLASTY FOR SUPRAVALVULAR STENOSIS (WRVU 29.33) (N/A Chest) () Alirio Francisco MD Clark, Jeffrey A, MD All Anesthesia Providers: Anesthesiologist: Luis Enrique Quarles MD Ophthalmic Dispenser: Henrik Cooper MD Last (1hr) Vitals: BP Temp 36.1 ??C (97 ??F) (09/21/16 1800) Pulse 79 (09/21/16 1800) Resp 11 (09/21/16 1800) SpO2 98 % (09/21/16 1800) Patient Location: [facility] Level of Consciousness: Sedated (Pharmacologic/Intentional) Pain [...] EST Office Visit Hematology [place] [address] Markel Borjas MD [facility] [address] HEMATOLOGY [place] [address] 11/02/2024 12:00 PM EDT Appoint[place] [address] 11/02/2024 1:00 PM EDT Office [place] [address] Magdalena Peralta MD [facility] [place] [address] 03/01/2025 4:15 PM EDT Office Visit Dermatology at [place] [address] [place] [address] Marek Bonilla MD [address], [place] [address] documented as of this encounter Visit Diagnoses [...] mg documented in this encounter Care Teams Collection Advisor Relationship Specialty Start Date End Date Deborah Quiroga, INTERACTIVE ACCOUNT MANAGER PCP - General Family Medicine 03/24/16 02/04/23 documented as of this encounter
--- OUTSIDE RECORDS SUMMARY | 2024-06-22 14:14 | XMS_ITS | Encounter Summary ---
Author Organization [facility] Address [facility] [place] [address] Care Team Providers Care Bottle Feeder Name Role Phone Deborah Quiroga APRN Primary Care Provider [phone] Encounter Details Date Type Department Care Team (Late st Contact Info) Description 06/18/2017 11:00 AM EST Office Visit Hematology [place] [address] Markel Borjas MD [facility] DR [place] [address] Neutropenia, unspecified type Social History Tobacco Use [...] 06/18/2017 11:00 AM EST Hematology Outpatient Clinic [facility] Hematology Outpatient [...] TOUCH PREP, CLOT SECTION, CORE ??BIOPSY); [OSR# [id number], COLLECTED 06/23/2016, 19 SLIDES]: ?1. ??Normocellular marrow [...] a clonal lymphoproliferative or myeloproliferative disorder (OSR# [id number]) Chromosome analysis on the marrow aspirate revealed [...] working the same job and participating in [employer]. Past Medical/Surgical History: 1. Leukopenia -element of neutropenia, as noted above 2. Aortic Stenosis -severe -AVR surgery 3. Hypercholesterolemia 4. Depression 5. Hypertension 6. 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 Extremities: No edema. Labs: Hgb= 13 Stro=595 ANC= 0.6 Imaging As above - reviewed [...] EST Office Visit Hematology and Oncology at [place] [phone] Markel Borjas MD [facility] [address] [place] [address] 11/02/2024 12:00 PM EDT Appointment Pulmonology at [place] [address] 11/02/2024 1:00 PM EDT Office Visit Rheumatology at [place] [address] Magdalena Peralta MD [facility] [place] [address] 03/01/2025 4:15 PM EDT Office Visit Dermatology at [address] [place] [address] Marek Bonilla MD [address], [place] [address] documented as of this encounter Visit Diagnoses Diagnosis Neutropenia, unspecified type documented in this encounter Care Teams Bottle Feeder Relationship Specialty Start Date End Date Deborah Qurioga APRN PCP - General Family Medicine 03/24/16 02/04/23 documented as of this encounter
--- OUTSIDE RECORDS SUMMARY | 2024-06-22 14:14 | XMS_ITS | Encounter Summary ---
[place] [address] Care Team Providers Care Loom Control Chain Builder Name Role Phone Junaid Deborah Shields APRN Primary Care Provider [phone] Encounter Details Date Type Department Care Team (Late st Contact Info) Description 10/20/2016 11:20 AM EDT Office [place] [address] Alirio Esparza MD S/P AVR Social History [...] of her postoperative tests done at [facility]. Her echo shows a well-seated valve. Her EF, for some reason, was read as in the 45% to 50% range. She had a normal EF to start. I think that will need to be repeated at [facility]. She has no perivalve leak. Her [...] should continue to see Dr. Burrell, her width stripper at [facility]. cc: Dr. Burrell documented in this encounter Plan of Treatment Upcoming Encounters Date Type Department Care Team (Late st Contact Info) Description 06/23/2024 2:00 PM EST Office Visit Hematology [place] [address] Markel Borjas MD [facility] HEMATOLOGY [place] [address] 11/02/2024 12:00 PM EDT Appoint[place] [address] 11/02/2024 1:00 PM EDT Office [place] [address] Magadlena Peralta MD [facility] [place] [address] 03/01/2025 4:15 PM EDT Office Visit Dermatology at [place] [address] [facility] [place] [address] Marek Bonilla MD [address], [place] Katherine [place] [address] documented as of this encounter Visit Diagnoses Diagnosis S/P AVR Heart valve replaced by other means documented in this encounter Care Teams Loom Control Chain Builder Relationship Specialty Start Date End Date Deborah Quiroga APRN PCP - General Family Medicine 03/24/16 02/04/23 documented as of this encounter
--- OUTSIDE RECORDS SUMMARY | 2024-06-22 14:14 | XMS_ITS | Encounter Summary ---
Author Organization [facility] [place] [address] Care Team Providers Care Dairy Equipment Mechanic Name Role Phone Ashley Quirogan [place] ANURAG Primary Care Provider [phone] Reason for Visit * Reason Comments Skin Check Encounter Details Date Type Department Care Team (Late st Contact Info) Description 11/11/2020 10:45 AM EDT Office Visit Dermatology at [address] [place] [address] Marek Bonilla MD [address] [facility], QU[address] A DERMATOLOGY [place], [place] [address] Rosacea; Acrochordon Social History Tobacco Use Types [...] Discussed the possibility of getting this through [facility] or from the [facility] pharmacy if necessary. She has not yet [...] Visit Hematology [place] [address] Markel Borjas MD [facility] [address] HEMATOLOGY [place] [address] 11/02/2024 12:00 PM EDT Appointment [place] [address] 11/02/2024 1:00 PM EDT Office [place] [address] Magdalena Peralta MD [facility] [place] [address] 03/01/2025 4:15 PM EDT Office Visit Dermatology at [place] [address] [facility] [address] Marek Bonilla MD [address], [place] [address] documented as of this encounter Visit Diagnoses Diagnosis Rosacea Acrochordon Unspecified hypertrophic and atrophic condition of skin documented in this encounter Care Teams Dairy Equipment Mechanic Relationship Specialty Start Date End Date Deborah Quiroga, DIRECTOR OF LOGISTICS PCP - General Family Medicine 03/24/16 02/04/23 documented as of this encounter
--- OUTSIDE RECORDS SUMMARY | 2024-06-22 14:14 | XMS_ITS | Encounter Summary ---
Author Organization [facility] [place] [address] Care Team Providers Care Professional Skater Name Role Phone Ashley Quirogazac Shields APRN Primary Care Provider [phone]- [phone] Encounter Details Date Type Department Care Team (Late st Contact Info) Description 09/17/2016 External Results Hematology and Oncology at [place] [phone] Alexandrea Greenwood RN Neutropenia, unspecified type Social [...] EST Office Visit Hematology [place] [address] Markel Borjas MD [facility] [address] [place] [address] 11/02/2024 12:00 PM EDT Appointment [place] [address] 11/02/2024 1:00 PM EDT Office Visit Rheumatology at [place] [phone] Magdalena Peralta MD [facility] [place] [address] 03/01/2025 4:15 PM EDT Office Visit Dermatology at [place] [address] [place] [address] Marek Bonilla MD [address], [place] [address] documented as of this encounter Procedures Procedure [...] Blood specimen (specimen) 09/16/2016 12:06 PM EST Makrel Borjas MD [facility] documented in this encounter Visit Diagnoses Diagnosis Neutropenia, unspecified type documented in this encounter Care Teams Professional Skater Relationship Specialty Start Date End Date Deborah Quiroga APRN PCP - General Family Medicine 03/24/16 02/04/23 documented as of this encounter
--- OUTSIDE RECORDS SUMMARY | 2024-06-22 14:14 | XMS_ITS | Encounter Summary ---
[place] [address] Care Team Providers Care Fiberglass Boat Finisher Name Role Phone Ashley Quirogan Cornelius ANURAG Primary Care Provider [phone]- [phone] Reason for Visit * Reason Onset Date Comments Medication Management 09/14/2016 Encounter Details Date Type Department Care Team (Late st Contact Info) Description 09/14/2016 Telephone Hematology [place] [address] Alexandrea Greenwood, nurse transplant Management Social History Tobacco Use Types Packs/Day [...] 09/14/2016 9:12 AM EST Message received from spindle repairer: Purnima called, asking for clarification on when [...] EST Office Visit Hematology and Oncology at [place] [phone] Markel Borjas MD [facility] [place] [address] 11/02/2024 12:00 PM EDT [place] [address] 11/02/2024 1:00 PM EDT Office Visit Rheumatology at [place] [phone] Magdalena Peralta MD [facility] [place] [address] 03/01/2025 4:15 PM EDT Office Visit Dermatology at [address] [place] [address] Marek Bonilla MD [address], [place] [address] documented as of this encounter Visit Diagnoses Not on filedocumented in this encounter Care Teams Fiberglass Boat Finisher Relationship Specialty Start Date End Date Deborah Quiroga APRN PCP - General Family Medicine 03/24/16 02/04/23 documented as of this encounter
--- OUTSIDE RECORDS SUMMARY | 2024-06-22 14:14 | XMS_ITS | Encounter Summary ---
[place] [address] Care Team Providers Care Fruit And Vegetable Inspector Name Role Phone Junaid Deborah Shields APRN Primary Care Provider [phone] Reason for Visit * Auth/Cert Specialty Diagnoses / Procedures Referred By Crispin t Referred To Contact Diagnoses Aortic stenosis Procedures PRO REPLACE AORT VALV, PROSTH VALV @REPLACE AORTIC VALVE, OPEN, W\CPB, W\PROSTHETIC VALVE (WRVU 41.32) Referral ID Status Reason Start Date Expiration Date Visits Re quested Visits Authorized [id number] 1 1 Encounter Details Date Type Department Care Team (Late st Contact Info) Description 09/21/2016 7:30 AM EST - 09/21/2016 12:04 PM EST Surgery [place] [address] Alirio Esparza MD @REPLACE AORTIC VALVE, OPEN, [...] in 1-2 weeks. Patient to follow-up with Promotional Advertising Assistant, Dr. Antelmo Burrell, in two weeks. Patient to follow-up with Cardiac Surgery, Dr. Alirio Esparza, to be scheduled for before 10/19/2016, with CXR, EKG, and Echo. Inpatient Provider Contact Information: [facility] [place] [facility] [place] [address] FAX [phone] Discharge Diagnoses (Hospital Problems) Primary Diagnoses: Secondary [...] [facility] MAIN OR ??? Pro aortoplas for supravalv sten N/A 09/21/2016 @AORTOPLASTY FOR SUPRAVALVULAR STENOSIS (WRVU 29.33) performed by Alirio Esparza MD at [facility] MAIN OR Prior To Admission [...] Course: Purnima Thacker was admitted to [facility] on 09/21/2016 via the Same Day [...] Alirio Esparza and/or the Cardiac Surgery Physician Recruiting Manager Team may be reached at . [...] to your dentist. Please refer to the [place] Heart Association [...] Dr. Alirio Jones. You may use a [place] Track or treadmill but avoid any pulling [...] friends, go to a movie, go to adventist, etc. Heavy activities: No hunting, skiing, jogging, [...] low fat, low cholesterol, [place] Heart Association Diet. Driving: No driving until [...] Phase 2 Cardiac Rehabilitation at [facility]. The patient agrees to a referral to this program. The referral will be sent at discharge and the patient should be contacted by the program within 1- 2 weeks from discharge. Future Appointments and Orders Future Appointments Provider Department Dept Phone 11/20/2016 11:30 AM Markel Borjas MD [facility] [phone] Future Orders Complete By Expires Echocardiogram Transthoracic([facility]) [UGY427 Custom] 10/18/2016 (Approximate) 09/18/2017 Process Instructions: If the Echocardiogram is to be PERFORMED in a DH location other than [place]--STOP and order [id number], Echocardiogram South/External. Scheduling Instructions: Questions: Is a Bubble Study requested?: No Does the patient have Congenital Heart Disease?: No Does patient require sedation?: None GA rationale: Should this service be billed to the research sponsor?: EKG 12 Lead [EKG1 Custom] 10/18/2016 (Approximate) 09/25/2017 Process Instructions: Scheduling Instructions: Questions: Which DH location will this be performed?: [place] Is a rhythm strip needed?: No If EKG Reason is Pre-op Evaluation, indicate diagnosis for surgery.: Should this service be billed to the research sponsor?: XR Chest PA & Lateral (Generic) [[id number] Custom] 10/18/2016 (Approximate) 09/25/2017 Process Instructions: Scheduling Instructions: Questions: Where will study be performed?: [facility]- Radiology Portable exam?: No Reason for exam and clinical history: s/p AVReplacement, patch annuloplasty 1 month f/u Other pertinent information: Stat read required?: Date of injury if applicable: Requested Time: Referral to Cardiac Rehab [ZVI044 Custom] As directed Process Instructions: If no progress note charted, please enter Clinical details in comments. Scheduling Instructions: Questions: My question or request is: s/p AVR. Cardiac rehab at [facility] Referral to Home Health - at DISCHARGE [PNQ3131 CPT(R)] As directed Process Instructions: Scheduling Instructions: Comments: DOCUMENTATION FOR VNA SERVICES (INCLUDING THOSE PATIENTS WITH MEDICARE COVERAGE REQUIRING HOME VNA SERVICES AND/OR HOSPICE SERVICES) PATIENT'S LOCATION: Purnimakary Gallego[address] [address] (home) No relevant phone numbers on file. Clinical Biochemical Geneticist's Name: self In discussion with the attending physician, it is certified that this patient is under their care and that they, or a Nurse Practitioner, or Physician Recruiting Manager who is working directly with them, [...] services as follows: HOME HEALTH AGENCY: [facility] PHONE: [phone] FAX: [phone] RN orders: Cardiopulmonary assessment, incisional assessment, assess [...] issues please call the Cardiac SurgeryOffice at [phone] FOR MEDICARE ONLY: In discussion with the [...] [facility] [place] [address] FAX [phone] Date: 09/25/2016 CC: ANURAG Alford Caryn E, APRN [address] [place] [address] documented in this encounter Discharge Instructions * [...] Alirio Esparza and/or the Cardiac Surgery Physician Recruiting Manager Team may be reached at . [...] to your dentist. Please refer to the [place] Heart Association [...] Dr. Alirio Jones. You may use a [place] Track or treadmill but avoid any pulling [...] friends, go to a movie, go to adventist, etc. Heavy activities: No hunting, skiing, jogging, [...] low fat, low cholesterol, [place] Heart Association Diet. Driving: No driving until [...] Phase 2 Cardiac Rehabilitation at [facility]. The patient agrees to a [...] PM EST Cardiac Surgery Progress Note: ID: [id number] S/p AVR, patch aortoplasty POD#2. PMH of [...] Gas) No results found for: PHART, PO2ART, MNM0QYJ Assessment/Plan: TPW out this am. (+) BM. [...] Signed: Crispin Aranda PA-C 09/24/2016 Team pager: [phone]; [phone] [facility] Section of Cardiac Surgery * Leonor Henson S, ALPINE GUIDE - 09/23/2016 10:48 AM EST Cardiac Surgery Progress Note: ID: [id number] s/p AVR, patch aortoplasty POD#2. PMH of [...] Gas) No results found for: PHART, PO2ART, GVD4GUI Assessment/Plan: s/p AVR, patch aortoplasty POD#2. PMH of Neutropenia, HLD, HTN, Depression, obesity, . Transferred from [facility] yesterday and doing well. Pathway. [...] on rounds. Signed: Leonor Henson APRN [facility] Section of Cardiac Surgery Date: 09/23/2016 * Nico Palacios PA - 09/22/2016 9:56 AM EST Cardiac Surgery Progress Note: ID: [id number] s/p AVR, patch aortoplasty POD#1. PMH of [...] NT, ND, soft. Ext: Moves all extremities. [place], well perfused. Incisions: C/D/I Tubes/Lines/Drains: PIV, richi, [...] Surgeon on rounds. Signed: EKATERINA KIM [facility] Section of Cardiac Surgery Date: 09/22/2016 [...] left pleural effusion. T/L/D Al ETT CVL [place] CT Pacing wires ASSESSMENT, MANAGEMENT, and DECISION [...] Outcome (s) achieved Date Met: 09/25/16 09/25/16 6614 Coping/Psychosocial Plan Of Care Reviewed With patient [...] health, home with outpatient services Lalitha Cohen [facility] Pager: [phone] Inpatient Physical Therapy Patient status, treatment interventions, and goals discussed with student. I am in agreement with all details and associated flowsheet rows as documented and was present for all aspects of the patient treatment session. Nery Jaramillo, CANDY Pager [phone] Problem: Acute Rehab Services Goal & Intervention Plan Goal: Bed Mobility Goal Stand Alone Therapy Goal Outcome: Ongoing (Interventions Implemented as Appropriate) 09/22/16 1611 09/25/16 0947 Bed Mobility Goal Bed Mobility Goal, Time to Achieve 4 days -- Bed Mobility Goal, Activity Type scoot/bridge;supine to sit/sit to supine -- Bed Mobility Goal, [place] Level independent -- Bed Mobility Goal, Additional [...] Achieve 4 days -- Gait Training Goal, [place] Level independent -- Gait Training Goal, Distance [...] assist, home with home health [facility] Pager: [phone] Inpatient Physical Therapy Patient status, treatment interventions, and goals discussed with student. I am in agreement with all details and associated flowsheet rows as documented and was present for all aspects of the patient treatment session. Nery Jaramillo, SPEECH SCIENTIST Pager [phone] Problem: Acute Rehab Services Goal & Intervention Plan Goal: Bed Mobility Goal Stand Alone Therapy Goal Outcome: Ongoing (Interventions Implemented as Appropriate) 09/22/16161009/23/161411 Bed Mobility Goal Bed Mobility Goal, Time to Achieve 4 days -- Bed Mobility Goal, Activity Type scoot/bridge;supine to sit/sit to supine -- Bed Mobility Goal, [place] Level independent -- Bed Mobility Goal, Additional [...] Achieve 4 days -- Gait Training Goal, [place] Level independent -- Gait Training Goal, Distance [...] days -- Transfer Training Goal, Activity Type hsw-cj-xblqq/pwzip-ph-zjd;zxz-kg-tdlzw/wnoll-ic-nda -- Transfer Train Goal, [place] Level independent -- Transfer Training Goal, Additional Goal abides sternal precautions -- Transfer Training Goal, Outcome -- goal met * Consult Note - Jana Crenshaw RN - 09/23/2016 9:41 AM EST [facility] CARD[facility]AC REH[facility]ILITATION Purnima Thacker was seen today regarding participation in the outpatient Phase 2 Cardiac Rehabilitation at [facility]. The patient agrees to a [...] Another Service: (cardiac rehab) NICOLE HERNANDEZ, PT Pager:[phone] Inpatient Physical Therapy Problem: Acute Rehab Services Goal & Intervention Plan Goal: Bed Mobility Goal Stand Alone Therapy Goal Outcome: Ongoing (Interventions Implemented as Appropriate) 09/22/161610 Bed Mobility Goal Bed Mobility Goal, Time to Achieve 4 days Bed Mobility Goal, Activity Type scoot/bridge;supine to sit/sit to supine Bed Mobility Goal, [place] Level independent Bed Mobility Goal, Additional Goal able to abide sternal precautions during transfers Goal: Gait Training Goal Stand Alone Therapy Goal Outcome: Ongoing (Interventions Implemented as Appropriate) 09/22/161610 Gait Training Goal Gait Training Goal, Date Established 09/22/16 Gait Training Goal, Time to Achieve 4 days Gait Training Goal, [place] Level independent Gait Training Goal, Distance to Achieve ascend and descends 2 steps independently Goal: Goal Transfer Training Stand Alone Therapy Goal Outcome: Ongoing (Interventions Implemented as Appropriate) 09/22/161610 Goal Transfer Training Transfer Training Goal, Time to Achieve 4 days Transfer Training Goal, Activity Type kyu-rj-wpopi/svjak-dz-liv;nvk-gw-vxgzw/ceggn-gd-wis Transfer Train Goal, [place] Level independent Transfer Training Goal, Additional Goal [...] of completing AD's at home, chooses her mmzbfn-kw-fdm, Martha Thacker (home) for her DPOAH, 2nd choice in friend, Nitesh Rad, [place], [place] Current Coping/Education/Information Needs: patient sitting up [...] close by, Rashad & Raymond, and her yimnom-hn-wot Martha Thacker who she has chosen to be her DPOAH. Also has a friend Nitesh Leroy who lives in [place], [place], also her DPOAH choice. Behavioral Health History: none on file in e[facility] Substance Use/Abuse: none on file in [facility] Other Pertinent/Service Specific Information: none Health/Prescription Coverage: Primary Insurance: [employer] Secondary Insurance: none Prescription Coverage: yes, per patient no issues Preferred Pharmacy: ?? Other: none Primary Care Provider: Deborah Quiroga, ALPINE GUIDE [phone] Patient/Caregiver Goals of Treatment: per medical team recommendations at discharge for CT surgery Potential Needs for Transition of Care: Rehab/SNF: TBD Home Health: TBD DME: no Dialysis: no Community Resources: non3 Transportation: ride home with a friend Other: none Anticipated Barriers to Discharge/Special Considerations: none anticipated at this time Plan: patient will need VNA services at discharge. The patient/title insurance sales representative has been provided a list of Home Health Agencies/DME vendors which servetheir preferred geographic area. A letter describing our affiliations was reviewed with them and they were educated about their right to choose where referrals are placed. Patient requests referral to: [facility]. PHONE: [phone] FAX: [phone] Expected date of discharge: Fri/Sat? CM called VNA to confirm referral, talked with VALDO Bunn/intake who stated she was familiar w/patient & would monitor her progress through curaspan. Referral routed to the Audio Visual Coordinator for matching with agency/vendor and to provide any required information. A member of the Care Management team will continue to monitor progress, follow for continuity of care and assist with transition of care planning. Amanda Moreno RN Pager: [phone] * Op Note - Alirio Esparza MD - 09/21/2016 12:53 PM EST 09/23/2016 Purnima Thacker [id number] Preoperative Diagnosis: Symptomatic aortic stenosis Postoperative Diagnosis: Symptomatic aortic stenosis Procedure: Aortic valve replacement: Bovine Pericardial 25 mm Surgeon: Alirio Esparza M.D. Recruiting Manager: Philip BALL Anesthesia: General endotracheal anesthesia [...] applied. The patient was transported to the [facility] on levo. All counts were [...] Operative Note Patient Name: Purnima Thacker : [id number] MR#: [id number] Case Date: 09/21/2016 Surgeon: Surgeon(s) and Role: * Alirio Esparza MD - Primary * Nico Palacios PA - Physician Recruiting Manager Preoperative diagnosis: Postoperative diagnosis: Procedure(s) (LRB): [...] EST Office Visit Hematology [place] [address] Markel Borjas MD [facility] [address] [place]EMAT[place]Y [place] [address] 11/02/2024 12:00 PM EDT Appointment [place] [address] 11/02/2024 1:00 PM EDT Office [place] [phone] Magdalena Peralta MD [facility] [place] [address] 03/01/2025 4:15 PM EDT Office Visit Dermatology at [address] [place] [phone] Marek Bonilla MD [address], [place] [address] Scheduled Orders Name Type Priority Associated Diagnoses [...] IMPLANTABLE DEVICES SCAN 09/26/2016 12:00 AM EST WELLNESS TRAINER SCAN 09/26/2016 12:00 AM EST POTASSIUM Routine [...] Routine 09/22/2016 4:00 AM EST CARDIAC ENZYMES ([facility]) Routine 09/22/2016 4:00 AM EST CREATININE Routine [...] SCAN EXT O RDR/RSLT * SCAN DOC: WELLNESS TRAINER (09/26/2016 12:00 AM EST) Anatomical Region Laterality Modality Other Narrative 09/26/2016 12:00 AM EST Ordered by an unspecified provider. Scanning Provider MEDIA MGR SCAN EXT O RDR/RSLT * Potassium (09/25/2016 4:32 AM EST) Pathologist [facility] Potassium 4.4 3.5 - 5.0 mmol/L [place] [...] CHEMISTRY ORDERABLE S [facility] [place] [address] * (ABNORMAL) Differential, Automated (09/24/2016 9:56 AM EST) Pathologist [facility] Neutrophil % 76.8 % [facility] Neutrophil Absolute 7.79(H) 1.70 - 6.10 x10(3)/mc L [facility] Lymph % 11.1 % [facility] Lymphocytes Abs 1.1 0.9 - 3.2 x10(3)/mc L [facility] Monocyte % 8.5 % [facility] Monocyte Abs 0.9 0.3 - 0.9 x10(3)/mc L [facility] Eos % 0.5 % [facility] Eosinophils Abs 0.0 0.0 - 0.4 x10(3)/mc L [facility] Basophil % 0.2 % [facility] [...] de Phone Number [facility] [place] [address] * (ABNORMAL) Hemogram (09/24/2016 9:56 AM EST) White Blood Cell 10.1(H) 4.0 - 9.5 x10(3)/ L [facility] Red Blood [...] Platelet 141(L) 145 - 357 x10(3)/ L [facility] RDW Standard [...] HEMATOLOGY ORDERABL ES [facility] [place] [address] * (ABNORMAL) Basic Metabolic Panel (non-fasting) (09/24/2016 [...] the following links into your internet browser. [email or web address] Blood specimen (specimen) 09/24/2016 9:56 AM EST 09/24/2016 10:04 AM EST Narrative Resulting Agency Comment Spec In Lab Alirio Esparza MD CHEMISTRY ORDERABLE S [facility] [place] [address] * XR Chest PA & Lateral (Generic) [...] [facility]/ZIP Co de Phone Number [facility] [place] [address] * POCT Glucose (09/22/2016 8:17 AM EST) Glucose, POC 131 65 - 199 mg/dL [facility] Comment: Supplemental ranges: <140 mg/dL before meals <180 mg/dL all other times of the day Blood specimen (specimen) 09/22/2016 8:17 AM EST 09/22/2016 8:17 AM EST Alirio Esparza MD POINT OF CARE TEST ORDERABLES [facility] [place] [address] * POCT Glucose (09/22/2016 4:01 AM EST) Glucose, POC 135 65 - 199 mg/dL [facility] Comment: Supplemental ranges: <140 mg/dL before meals <180 mg/dL all other times of the day Blood specimen (specimen) 09/22/2016 4:01 AM EST 09/22/2016 4:01 AM EST Alirio Esparza MD POINT OF CARE TEST ORDERABLES Performing Organization Address [place] Co de Phone Number [facility] [place] [address] * Scan, Peripheral Blood (09/22/2016 4:00 AM EST) Plat estimate Normal [facility] RBC Morphology Abnormal [facility] Macrocyte 1-5 /HPF [facility] Plat, Giant Less than 1 /HPF [facility] Blood specimen (specimen) 09/22/2016 4:00 AM EST 09/22/2016 4:34 AM EST Narrative Resulting Agency Comment Spec In Lab Alirio Esparza MD HEMATOLOGY ORDERABL ES Performing Organization Address [facility] Phone Number [facility] [place] [address] * Electrolytes panel (09/22/2016 4:00 AM EST) Sodium 145 135 - 145 mmol/L [place] [...] MD CHEMISTRY ORDERABLE S Performing Organization Address [place]/[facility]/[place] [address] * (ABNORMAL) Differential, Automated (09/22/2016 4:00 AM EST) Pathologist [facility] Neutrophil % 70.9 % [facility] Neutrophil Absolute 5.33 1.70 - 6.10 x10(3)/ L [facility] Lymph % 9.1 % [facility] Lymphocytes Abs 0.7(L) 0.9 - 3.2 x10(3)/ L [facility] Monocyte % 18.0 % [facility] Monocyte Abs 1.4(H) 0.3 - 0.9 x10(3)/ L [facility] Eos % 0.0 % [facility] Eosinophils Abs 0.0 0.0 - 0.4 x10(3)/[facility]ORAT[facility] Basophil % 0.1 % [facility] [...] HEMATOLOGY ORDERABL ES [facility] [place] [address] * (ABNORMAL) Hemogram (09/22/2016 4:00 AM EST) [facility] White Blood Cell 7.5 4.0 [...] HOSPITAL LABORATORY Platelet 161 145 - 357 x10(3)/[facility] LABORATORY RDW Standard Deviation 44.0 37.0 - 46.0 fL [facility] RDW coefficient of variation 12.6 11.5 - 14.1 % [facility] Mean Platelet Volume 9.3 7.6 - 12.9 fL [facility] NRBC% auto 0.3 % [facility] NRBC Absolute 0.020(H) 0.000 - 0.000 x10(3)/ L [facility] Blood specimen (specimen) 09/22/2016 4:00 AM EST 09/22/2016 4:34 AM EST Narrative Resulting Agency Comment Spec In Lab Alirio Esparza MD HEMATOLOGY ORDERABL ES [facility] [place] [address] * (ABNORMAL) Cardiac Enzymes (09/22/2016 4:00 AM EST) [facility] Troponin-T 0.13(H) <=0.03 ng/mL [facility] [...] consensus document of the Joint Society of Cardiology/[place] College of Cardiology Committee for the redefinition of myocardial infarction. ??Journal of the [place] College of Cardiology 2000; 36: 959-969] Creatine Kinase 338(H) 0 - 160 unit/L [facility] Blood specimen (specimen) 09/22/2016 4:00 AM EST 09/22/2016 4:34 AM EST Narrative Resulting Agency Comment Spec In Lab Aliiro Esparza MD CHEMISTRY ORDERABLE S [facility] [place] [id number] * (ABNORMAL) Glucose, fasting (09/22/2016 4:00 AM [...] of Diabetes Mellitus, Position Statement from the [place] Diabetes Association. ??Diabetes Care, Volume 33, Supplement 1, Aug 2009 Blood specimen (specimen) 09/22/2016 4:00 AM EST 09/22/2016 4:34 AM EST Narrative Resulting Agency Comment Spec In Lab Alirio Esparza MD CHEMISTRY ORDERABLE S Performing Organization Address [place] Co de Phone Number [facility] [place] [address] * (ABNORMAL) Creatinine (09/22/2016 4:00 AM EST) [...] the following links into your internet browser. [email or web address] Blood specimen (specimen) 09/22/2016 4:00 AM EST 09/22/2016 4:34 AM EST Narrative Resulting Agency Comment Spec In Lab Alirio Esparza MD CHEMISTRY ORDERABLE S Performing Organization Address [place] Co de Phone Number [facility] [place] [address] * BUN (09/22/2016 4:00 AM EST) Blood Urea Nitrogen 10 8 - 18 mg/dL [facility] Blood specimen (specimen) 09/22/2016 4:00 AM EST 09/22/2016 4:34 AM EST Narrative Resulting Agency Comment Spec In Lab Alirio Esparza MD CHEMISTRY ORDERABLE S Performing Organization Address [place]/[facility]/ZIP Co de Phone Number [facility] [place] [address] * POCT Glucose (09/21/2016 9:59 PM EST) Glucose, POC 146 65 - 199 mg/dL [facility] Comment: Supplemental ranges: <140 mg/dL before meals <180 mg/dL all other times of the day Blood specimen (specimen) 09/21/2016 9:59 PM EST 09/21/2016 9:59 PM EST Alirio Esparza MD POINT OF CARE TEST ORDERABLES Performing Organization Address [place] Co de Phone Number [facility] [place] [address] * POCT Glucose (09/21/2016 7:26 PM EST) Glucose, POC 152 65 - 199 mg/dL [facility] Comment: Supplemental ranges: <140 mg/dL before meals <180 mg/dL all other times of the day Blood specimen (specimen) 09/21/2016 7:26 PM EST 09/21/2016 7:26 PM EST Alirio Esparza MD POINT OF CARE TEST ORDERABLES Performing Organization Address [place] Co de Phone Number [facility] [place] [address] * POCT Glucose (09/21/2016 6:00 PM EST) Glucose, POC 146 65 - 199 mg/dL [facility] Comment: Supplemental ranges: <140 mg/dL before meals <180 mg/dL all other times of the day Blood specimen (specimen) 09/21/2016 6:00 PM EST 09/21/2016 6:00 PM EST Alirio Esparza MD POINT OF CARE TEST ORDERABLES [facility] [place] [address] * (ABNORMAL) BLOOD GAS 2 ARTERIAL (09/21/2016 [...] [facility] PF Ratio Art 270 [facility] Blood specimen (specimen) 09/21/2016 4:42 PM EST 09/21/2016 4:42 PM EST Alirio Esparza MD POINT OF CARE TEST ORDERABLES Performing Organization Address City/[facility]/ZIP Co de Phone Number [facility] [place] [address] * POCT Glucose (09/21/2016 4:07 PM EST) Glucose, POC 150 65 - 199 mg/dL [facility] Comment: Supplemental ranges: <140 mg/dL before meals <180 mg/dL all other times of the day Blood specimen (specimen) 09/21/2016 4:07 PM EST 09/21/2016 4:07 PM EST Alirio Esparza MD POINT OF CARE TEST ORDERABLES Performing Organization Address [place]/[facility]/ZIP Co de Phone Number [facility] [place] [address] * (ABNORMAL) Hemoglobin (09/21/2016 4:05 PM EST) Hemoglobin 9.9(L) 11.7 - 15.5 gm/dL [facility] Blood specimen (specimen) 09/21/2016 4:05 PM EST 09/21/2016 4:20 PM EST Narrative Resulting Agency Comment Spec In Lab Alirio Esparza MD HEMATOLOGY ORDERABL ES Performing Organization Address City/[facility] Co de Phone Number [facility] [place] [address] * Potassium (09/21/2016 4:05 PM EST) Potassium [...] MD CHEMISTRY ORDERABLE S Performing Organization Address [place]/[facility] Co de Phone Number [facility] [place] [address] * POCT Glucose (09/21/2016 2:52 PM EST) Glucose, POC 117 65 - 199 mg/dL [facility] Comment: Supplemental ranges: <140 mg/dL before meals <180 mg/dL all other times of the day Blood specimen (specimen) 09/21/2016 2:52 PM EST 09/21/2016 2:52 PM EST Alirio Esparza MD POINT OF CARE TEST ORDERABLES Performing Organization Address [place]/[facility] Co de Phone Number [facility] [place] [address] * POCT Glucose (09/21/2016 1:51 PM EST) Glucose, POC 108 65 - 199 mg/dL [facility] Comment: Supplemental ranges: <140 mg/dL before meals <180 mg/dL all other times of the day Blood specimen (specimen) 09/21/2016 1:51 PM EST 09/21/2016 1:51 PM EST Alirio Esparza MD POINT OF CARE TEST ORDERABLES Performing Organization Address [place]/[facility] Co de Phone Number [facility] [place] [address] * POCT Glucose (09/21/2016 12:54 PM EST) Glucose, POC 128 65 - 199 mg/dL [facility] Comment: Supplemental ranges: <140 mg/dL before meals <180 mg/dL all other times of the day Blood specimen (specimen) 09/21/2016 12:54 PM EST 09/21/2016 12:54 PM EST Alirio Esparza MD POINT OF CARE TEST ORDERABLES Performing Organization Address [place]/[facility] Co de Phone Number [facility] [place] [address] * EKG 12 Lead (09/21/2016 12:26 PM EST) Ventricular rate 87 BPM MUSE SYSTEM Atrial Rate 87 BPM MUSE SYSTEM P-R Interval 256 ms MUSE SYSTEM QRS Duration 90 ms MUSE SYSTEM Q-T Interval 406 ms MUSE SYSTEM QTC Calculated (Bezet) 488 ms MUSE SYSTEM Calculated P [place] 24 degrees MUSE SYSTEM Calculated R [place] 21 degrees MUSE SYSTEM Calculated T [place] -5 degrees MUSE SYSTEM INTERPRETATION Sinus rhythm [...] Esparza MD ECG ORDERABLES Performing Organization Address [place]/[facility] Phone Number MUSE SYSTEM * XR [...] course of the esophagus and below the [id number]-[id number]. There is a right IJ PA catheter [...] tip is below theclavicles and above the shria. A nasogastric tube projects over the course of theesophagus and below the gnqfi-ga-lhie. There is a right IJ PA catheter [...] [facility] PF Ratio Art 356 [facility] Blood specimen (specimen) 09/21/2016 12:20 PM EST 09/21/2016 12:20 PM EST Alirio Esparza MD POINT OF CARE TEST ORDERABLES Performing Organization Address City/State/[facility] Co de Phone Number [facility] [place] [address] * (ABNORMAL) BLOOD GAS 2 ARTERIAL (09/21/2016 [...] [facility] PF Ratio Art 313 [facility] Temp Art 36.7 Celsius [facility] Blood specimen (specimen) 09/21/2016 10:54 AM EST 09/21/2016 10:54 AM EST Alirio Esparza MD POINT OF CARE TEST ORDERABLES [facility] [place] [address] * Thrombin time (09/21/2016 10:50 AM EST) [...] MD HEMATOLOGY ORDERABLE S Performing Organization Address [place]/[facility] Co de Phone Number [facility] [place] [address] * Fibrinogen (09/21/2016 10:50 AM EST) [facility] Signature Fibrinogen 228 180 - 510 mg/dL [facility] [...] MD HEMATOLOGY ORDERABLE S Performing Organization Address [place]/[facility] Co de Phone Number [facility] [place] [address] * APTT (09/21/2016 10:50 AM EST) Partial Thromboplastin Time 32 25 - 35 sec [facility] Comment: The recommended therapeutic range for full dose, unfractionated heparin at [facility] is 80 ? 114 seconds. The use of the anti-Xa (heparin) level rather than the PTT is recommended for monitoring anticoagulation intensity in critically ill patients receiving unfractionated heparin by continuous IV infusion. Blood specimen (specimen) 09/21/2016 10:50 AM EST 09/21/2016 10:56 AM EST Narrative Resulting Agency Comment Spec In Lab Luis Enrique Quarles MD HEMATOLOGY ORDERABLE S Performing Organization Address [place]/[facility] Co de Phone Number [facility] [place] [address] * (ABNORMAL) Prothrombin Time (09/21/2016 10:50 AM [...] MD HEMATOLOGY ORDERABLE S Performing Organization Address [place]/[facility] Co de Phone Number [facility] [place] [address] * (ABNORMAL) Hemogram (09/21/2016 10:50 AM EST) [facility]ZIP Co de Phone Number [facility] [place] [address] * Prepare Platelets, Apheresis (09/21/2016 10:30 AM EST) Pathologist [facility] Dispensed? Yes [facility] Blood specimen (specimen) 09/21/2016 10:30 AM EST 09/21/2016 10:28 AM EST Alirio Esparza MD BLOOD BANK PRODUCT ORDERABLES Performing Organization Address City/[facility]/ZIP Co de Phone Number [facility] [place] [address] * (ABNORMAL) BLOOD GAS 2 ARTERIAL (09/21/2016 10:05 AM EST) pH, Arterial 7.33(L) 7.35 - 7.45 [facility] PCO2, Arterial 54(Critic al) 35 - 45 mmHg [facility] Comment:Noted by instrument maker and repairer. PO2, Arterial 218(H) 85 - 104 [...] [facility] Comment: Noted by instrument maker and repairer. Please note: Patients with WBC >100,000 [...] CARE TEST ORDERABLES [facility] [place] [address] * (ABNORMAL) BLOOD GAS 2 ARTERIAL (09/21/2016 9:44 AM EST) pH, Arterial 7.22(Criti gabrielle) 7.35 - 7.45 [facility] Comment:Noted by instrument maker and repairer. PCO2, Arterial 70(Critica l) 35 - 45 mmHg [facility] Comment:Noted by instrument maker and repairer. PO2, Arterial 224(H) 85 - 104 [...] ORDERABLES Performing Organization Address City/[facility] Co de Phone Number [facility] [place] [address] * (ABNORMAL) Hemoglobin (09/21/2016 9:42 AM EST) Hemoglobin 7.2(L) 11.7 - 15.5 gm/dL [facility] Blood specimen (specimen) 09/21/2016 9:42 AM EST 09/21/2016 9:51 AM EST Narrative Resulting Agency Comment Spec In Lab Alirio Esparza MD HEMATOLOGY ORDERABL ES Performing Organization Address City/[facility] Co de Phone Number [facility] [place] [address] * Platelet count (09/21/2016 9:42 AM EST) Platelet 159 145 - 357 x10(3)/mc L [facility] Immature Plt % 1.6 0.0 - 7.4 % [facility] Comment: Limitation of the Immature Platelet Fraction (IPF)-May be less reliable when the platelet count is less than 94x681/uL due to statistical imprecision. The IPF value [...] in a decreased state of production. References: [employer] The Clinical Value of the Immature Platelet Fraction (IPF) in Cell Recovery Document Number 10-1143 12/2010 [employer] The Role of the Immature Platelet Fraction (IPF) in the Differential Diagnosis of Thrombocytopenia, Document MKT-[id number] V012/11/13 P012/13 Blood specimen (specimen) 09/21/2016 9:42 AM EST 09/21/2016 9:51 AM EST Narrative Resulting Agency Comment Spec In Lab Alirio Esparza MD HEMATOLOGY ORDERABL ES Performing Organization Address [place]/[facility] de Phone Number [facility] [place] [address] * (ABNORMAL) Hematocrit (09/21/2016 9:42 AM EST) [...] MD HEMATOLOGY ORDERABL ES Performing Organization Address [facility] Phone Number [facility] [place] [address] * Fibrinogen (09/21/2016 9:42 AM EST) Fibrinogen [...] MD HEMATOLOGY ORDERABL ES Performing Organization Address [place]/[facility] Co de Phone Number [facility] [place] [address] * (ABNORMAL) BLOOD GAS 2 ARTERIAL (09/21/2016 [...] CARE TEST ORDERABLES [facility] [place] [address] * Surgical Pathology Report (09/21/2016 9:09 AM EST) Final Diagnosis [id number] ?Location: 3T The signing pathologist has (i) [...] Esparza MD PATHOLOGY/CYTOLOGY ORDERABLES Performing Organization Address City/[facility]/[place] [address] * Specimen to Pathology (surgical or derm) (09/21/2016 9:09 AM EST) AP Specimen 09/21/2016 9:09 AM EST 09/21/2016 9:09 AM EST Narrative [facility] - 09/21/2016 9:09 AM EST Specimen requisition ordered. ??Separate Pathology report to follow Alirio Esparza MD PATHOLOGY/CYTOLOGY ORDERABLES Performing Organization Address [place]/[facility] [place] [address] * (ABNORMAL) BLOOD GAS 2 ARTERIAL (09/21/2016 [...] de Phone Number [facility] [place] [address] * (ABNORMAL) BLOOD GAS 2 ARTERIAL (09/21/2016 [...] [facility] PF Ratio Art 298 [facility] Temp Art 35.6 Celsius [facility] Blood specimen (specimen) 09/21/2016 8:18 AM EST 09/21/2016 8:18 AM EST Alirio Esparza MD POINT OF CARE TEST ORDERABLES Performing Organization Address [place]/[facility] de Phone Number [facility] [place] [address] * Prepare RBC (09/21/2016 7:05 AM EST) Pathologist [facility] Dispensed? Yes [facility] Blood specimen (specimen) 09/21/2016 7:05 AM EST 09/21/2016 7:02 AM EST Alirio Esparza MD BLOOD BANK PRODUCT ORDERABLES Performing Organization Address [place]/[facility] Co de Phone Number [facility] [place] [address] * POCT Glucose (09/21/2016 6:42 AM EST) Pathologist [facility] Glucose, POC 104 65 - 199 mg/dL [facility] Comment: Supplemental ranges: <140 mg/dL before meals <180 mg/dL all other times of the day Blood specimen (specimen) 09/21/2016 6:42 AM EST 09/21/2016 6:42 AM EST Alirio Esparza MD POINT OF CARE TEST ORDERABLES Performing Organization Address City/State/[facility] Co de Phone Number [facility] [place] [address] documented in this encounter Visit Diagnoses Not [...] dose on Wed09/21/16 at 1230, Until Discontinued, Hazel teeth, Routine Given 09/25/2016 9:40 AM EST [...] (Due - Provider: Kendall Martínez [facility]) aspirin chewable tablet 81 mg(Linked Group [...] dose on Wed09/21/16 at 1230, Until Discontinued, Hazel teeth, Routine 0900 (Not Given - Provider: [...] Discontinued, Routine 0300 (Not Given - Provider: aMrcie Frazier RN - Reason: See comment - [...] Routine documented in this encounter Care Teams Fruit And Vegetable Inspector Relationship Specialty Start Date End Date Deborah Quiroga, ALPINE GUIDE PCP - General Family Medicine 03/24/16 02/04/23 documented as of this encounter
--- OUTSIDE RECORDS SUMMARY | 2024-06-22 14:14 | XMS_ITS | Encounter Summary ---
[place] [address] Care Team Providers Care Senior Insight Manager Name Role Phone Ashley Quirogan Cornelius ANURAG Primary Care Provider [phone] Reason for Visit * Reason Comments Acrochordon Rosacea Encounter Details Date Type Department Care Team (Late st Contact Info) Description 12/05/2020 3:00 PM EDT Office Visit Dermatology at [address] [phone] Marek Bonilla MD [address] [facility] [place] [address] Inflamed acrochordon Social History Tobacco Use Types [...] EST Office Visit [place] [address] Markel Borjas MD [facility] [address] HEMATOLOGY [place] [address] 11/02/2024 12:00 PM EDT Appointment Pulmonology at [place] [address] 11/02/2024 1:00 PM EDT Office [place] [address] Magdalena Peralta MD [facility] DR [place] [address] 03/01/2025 4:15 PM EDT Office Visit Dermatology at [address] [place] [phone] Marek Bonilla MD [address], [place] [address] documented as of this encounter Visit Diagnoses Diagnosis Inflamed acrochordon Unspecified hypertrophic and atrophic condition of skin documented in this encounter Care Teams Senior Insight Manager Relationship Specialty Start Date End Date Deborah Quiroga APRN PCP - General Family Medicine 03/24/16 02/04/23 documented as of this encounter
--- OUTSIDE RECORDS SUMMARY | 2024-06-22 14:14 | XMS_ITS | Encounter Summary ---
Author Organization [facility] [place] [address] Care Team Providers Care Shactor Name Role Phone Ashley Quirogazac Shields APRN Primary Care Provider [phone] Encounter Details Date Type Department Care Team (Late st Contact Info) Description 06/18/2017 External Results Hematology and Oncology at [place] [phone] Alexandrea Greenwood RN Neutropenia, unspecified type Social [...] EST Office Visit Hematology [place] [address] Markel Borjas MD [facility] [address] HEMATOLOGY [place] [address] 11/02/2024 12:00 PM EDT Appointment [place] [address] 11/02/2024 1:00 PM EDT Office Visit Rheumatology at [place] [phone] Magdalena Peralta MD [facility] [place] [address] 03/01/2025 4:15 PM EDT Office Visit Dermatology at [place] [address] [place] [address] Marek Bonilla MD [address], [place] [address] documented as of this encounter Procedures Procedure [...] type documented in this encounter Care Teams Shactor Relationship Specialty Start Date End Date Deborah Quiroga, PREPARED FOODS SUPERVISOR PCP - General Family Medicine 03/24/16 02/04/23 documented as of this encounter
--- OUTSIDE RECORDS SUMMARY | 2024-06-22 14:14 | XMS_ITS | Encounter Summary ---
Author Organization [facility] Address [facility] [place] [address] Care Team Providers Care Coping Machine Assembler Name Role Phone Ashley Quirogazac Shields APRN Primary Care Provider [phone] Encounter Details Date Type Department Care Team (Late st Contact Info) Description 11/11/2020 Refill Dermatology at [address] [phone] Taylor Malone, QUALITY ENGINEER Social History Tobacco Use Types Packs/Day Years [...] EST Office Visit Hematology [place] [address] Markel Borjas MD [facility] [address] HEMATOLOG[place] [address] 11/02/2024 12:00 PM EDT Appointment [place] [address] 11/02/2024 1:00 PM EDT Office [place] [address] Magdalena Peralta MD [facility] [place] [address] 03/01/2025 4:15 PM EDT Office Visit Dermatology at [place] [address] [place] [phone] Marek Bonilla MD [address], [place] [address] documented as of this encounter Visit Diagnoses Not on filedocumented in this encounter Care Teams Coping Machine Assembler Relationship Specialty Start Date End Date Deborah Quiroga APRN PCP - General Family Medicine 03/24/16 02/04/23 documented as of this encounter
--- OUTSIDE RECORDS SUMMARY | 2024-06-22 14:14 | XMS_ITS | Encounter Summary ---
[place] [address] Care Team Providers Care Veterinary Surgeon Name Role Phone Ashley Quirogan Cornelius ANURAG Primary Care Provider [phone] Encounter Details Date Type Department Care Team (Late st Contact Info) Description 02/07/2020 Telephone Hematology [place] [address] Ellen Rios RN Social History [...] 02/07/2020 12:59 PM EDT Message received from physician office secretary: Injection/Infusion Referral Services to be provided for pt are: CBC only at [facility]- Pt will go by 02/27 Orders faxed to [phone]). Spoke with pt. She will call [facility] directly to schedule a time that works for her. documented in this encounter Plan of Treatment Upcoming Encounters Date Type Department Care Team (Late Contact Info) Description 06/23/2024 2:00 PM EST Office Visit Hematology [place] [address] Markel Borjas MD [facility] [address] HEMAT[place] [address] 11/02/2024 12:00 PM EDT Appointment Pulmonology at [place] [address] 11/02/2024 1:00 PM EDT Office Visit Rheumatology at [place] [phone] Magdalena Peralta MD [facility] [place] [address] 03/01/2025 4:15 PM EDT Office Visit Dermatology at [place] [address] [facility] [place] [phone] Marek Bonilla MD [address], [address] [place] [address] documented as of this encounter Visit Diagnoses Not on filedocumented in this encounter Care Teams Veterinary Surgeon Relationship Specialty Start Date End Date Deborah Quiroga APRN PCP - General Family Medicine 03/24/16 02/04/23 documented as of this encounter
--- OUTSIDE RECORDS SUMMARY | 2024-06-22 14:14 | XMS_ITS | Encounter Summary ---
Author Organization [facility] Address [facility] Erika becerra [place] [id number] Care Team Providers Care Compliance Intern Name Role Phone sAhley Quirogan Cornelius ANURAG Primary Care Provider [phone] Encounter Details Date Type Department Care Team (Late st Contact Info) Description 12/04/2016 External Results Hematology and Oncology at [place] [phone] Teresa Dodson RN Social History Tobacco Use [...] EST Office Visit Hematology and Oncology at [place] [phone] Markel Borjas MD [facility] [place] [address] 11/02/2024 12:00 PM EDT Appointment Pulmonology at [place] [phone] 11/02/2024 1:00 PM EDT Office Visit Rheumatology at [place] [phone] Magdalena Peralta MD [facility] [place] [address] 03/01/2025 4:15 PM EDT Office Visit Dermatology at [place] [address] [facility] [facility] [address] [place] [phone] Marek Bonilla MD [address], [place] [address] documented as of this encounter Procedures Procedure Name Priority Date/Time Associated Diagnosis Comments CBC (WITH DIFF) Routine 12/03/2016 11:35 AM EDT COMPREHENSIVE METABOLIC PANEL Routine 12/03/2016 11:35 AM EDT documented in this encounter Results * (ABNORMAL) Comprehensive metabolic panel (non-fasting) (12/03/2016 11:35 AM EDT) Glucose 85(Returned Item Clerk al Lab) Blood Urea Nitrogen 11(Returned Item Clerk al Lab) Creatinine 0.93(Exte rnal Lab) Sodium 140(Exter nal Lab) Potassium 4.2(Exter nal Lab) Chloride 104(Exter nal Lab) Calcium 10.0(Exte rnal Lab) Protein, Total 8.1(Exter nal Lab) Albumin 3.5(Exter nal Lab) Bilirubin, Total 0.25(Exte rnal Lab) Alkaline Phosphatase 96(Returned Item Clerk al Lab) Aspartate Aminotransferase 18(Returned Item Clerk al Lab) Alanine Aminotransferase 21(Returned Item Clerk al Lab) Blood specimen (specimen) 12/03/2016 11:35 AM EDT Historical Provider CHEMISTRY ORDERAB LES * (ABNORMAL) CBC (with Diff) (12/03/2016 11:35 AM EDT) White Blood Cell 1.61(EXTER NAL/ABN) 4.4 - 10.8 Hemoglobin 13.0(Exter nal Lab) Hematocrit 39.8(Exter nal Lab) Platelet 248(Returned Item Clerk al Lab) Neutrophil Absolute (ANC) - Automated 0.5(MARKETING TRAINEE AL/ABN) Blood specimen (specimen) 12/03/2016 11:35 AM EDT Historical Provider HEMATOLOGY ORDERA BLES documented in this encounter Visit Diagnoses Not on filedocumented in this encounter Care Teams Compliance Intern Relationship Specialty Start Date End Date Deborah Quiroga, STUDIO HAND PCP - General Family Medicine 03/24/16 02/04/23 documented as of this encounter
--- OUTSIDE RECORDS SUMMARY | 2024-06-22 14:14 | XMS_ITS | Encounter Summary ---
[place] [address] Care Team Providers Care Chain Maker Name Role Phone Ashley Quirogan Cornelius ANURAG Primary Care Provider [phone] Reason for Visit * Reason Onset Date Comments Medical Care Coordination 09/14/2016 Encounter Details Date Type Department Care Team (Late st Contact Info) Description 09/14/2016 Telephone Hematology [place] [phone] Alexandrea Greenwood RN Medical Care Coordination Social [...] 09/14/2016 9:10 AM EST Message received from pathology secretary/transcriptionist: Injection/Infusion Referral Call placed to [facility] Infusion Room Spoke charis Bragg. Services to be provided for pt are: Miles 09/16/16 [facility] confirmed they would provide services to pt and would contact with appointment time. Pt aware to expect the phone call ??orders faxed to [phone]). documented in this encounter Plan of Treatment Upcoming Encounters Date Type Department Care Team (Late st Contact Info) Description 06/23/2024 2:00 PM EST Office Visit [place] [address] Markel Borjsa MD [facility] [address] [place] [address] 11/02/2024 12:00 PM EDT Appointment [place] [phone] 11/02/2024 1:00 PM EDT Office Visit Rheumatology at [place] [address] Magdalena Peralta MD [facility] [place] [address] 03/01/2025 4:15 PM EDT Office Visit Dermatology at [place] [address] [facility] [place] [phone] Marek Bonilla MD [address] [place] [address] documented as of this encounter Visit Diagnoses Not on filedocumented in this encounter Care Teams Chain Maker Relationship Specialty Start Date End Date Deborah Quiroga APRN PCP - General Family Medicine 03/24/16 02/04/23 documented as of this encounter
--- OUTSIDE RECORDS SUMMARY | 2024-06-22 14:14 | XMS_ITS | Encounter Summary ---
Author Organization [facility] Address [facility] [place] [address] Care Team Providers Care Software Team Leader Name Role Phone Deborah Quiroga APRN Primary Care Provider +1 [phone] Encounter Details Date Type Department Care Team (Late st Contact Info) Description 03/01/2020 11:30 AM EDT Office Visit Hematology [place] [phone] Patrick Borjas MD [facility] [place] [address] Neutropenia, unspecified type Social History Tobacco Use [...] 11:30 AM EDT H[facility]ology Out[facility] [...] TOUCH PREP, CLOT SECTION, CORE ??BIOPSY); [OSR# [id number], COLLECTED 06/23/2016, 19 SLIDES]: ?1. 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 Extremities: No edema. Labs: Hgb= 12.4 Vgfi=604 ANC= 2.5 Imaging As above - reviewed [...] EST Office Visit Hematology [place] [address] [facility] [place] [address] 11/02/2024 12:00 PM EDT Appointment [place] [address] 11/02/2024 1:00 PM EDT Office [place] [address] [facility] [place] [place] [address] 03/01/2025 4:15 PM EDT Office Visit Dermatology at [place] [address] [place] [address] Marek Bonilla MD [address] [place] [address] documented as of this encounter Visit Diagnoses Diagnosis Neutropenia, unspecified type documented in this encounter Care Teams Software Team Leader Relationship Specialty Start Date End Date Deborah Quiroga APRN PCP - General Family Medicine 03/24/16 02/04/23 documented as of this encounter
--- OUTSIDE RECORDS SUMMARY | 2024-06-22 14:14 | XMS_ITS | Encounter Summary ---
Author Organization [facility] Address [facility] [place] [address] Care Team Providers Care Manager Small Business Name Role Phone Junaid Deborah Shields APRN Primary Care Provider +1 [phone] Reason for Visit * Reason Comments Schedule Office Case Pain right leg Encounter Details Date Type Department Care Team (Late st Contact Info) Description 12/11/2016 9:00 AM EDT Office Visit Hematology [place] [address] Markel Borjas MD [facility] [address] [place] [address] Neutropenia, unspecified type Social History Tobacco Use [...] 12/11/2016 9:00 AM EDT Hematology Outpatient Clinic [facility] Hematology Outpatient Consult Note CC: [...] TOUCH PREP, CLOT SECTION, CORE ??BIOPSY); [OSR# [id number], COLLECTED 06/23/2016, 19 SLIDES]: ?1. 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 Extremities: No edema. Labs: Hgb= 13 Tsta=749 ANC= 0.5 Imaging As above - reviewed [...] EST Office Visit Hematology [place] [address] Markel Borjas MD [facility] [address] [place] [address] 11/02/2024 12:00 PM EDT Appointment [place] [address] 11/02/2024 1:00 PM EDT Office Visit [place] [address] Magdalena Peralta MD [facility] [place] [address] 03/01/2025 4:15 PM EDT Office Visit Dermatology at [place] [address] [place] [address] Marek Bonilla MD [address], [place] [address] documented as of this encounter Results * [...] MD HEMATOLOGY ORDERAB LES Performing Organization Address City/[facility] [...] documented in this encounter Care Teams Manager Small Business Relationship Specialty Start Date End Date Deborah Quiroga APRN PCP - General Family Medicine 03/24/16 02/04/23 documented as of this encounter
--- OUTSIDE RECORDS SUMMARY | 2024-06-22 14:14 | XMS_ITS | Encounter Summary ---
[place] [address] Care Team Providers Care Sap Manager Name Role Phone Junaid, Deborah Shields APRN Primary Care Provider +1- [phone] Reason for Visit * Reason Onset Date Comments Labs Only 09/16/2016 Encounter Details Date Type Department Care Team (Late st Contact Info) Description 09/16/2016 Telephone Hematology [place] [address] Alexandrea Greenwood, RN Labs Only Social History [...] 09/16/2016 11:09 AM EST Message received from administrative secretary: Purnima is having her Neulasta done today at [facility]. ??She is wondering if we want to do a CBC prior to the injection? [phone] Borjas: CBC is fine RN spoke with Swapna at [facility] who confirms they can draw CBC on pt today, RN faxed CBC w/diff to [facility] lab at [phone] RN relayed to pt that CBC ordered had been faxed to [facility], pt will have CBC drawn today prior to neulasta injection. documented in this encounter Plan of Treatment Upcoming Encounters Date Type Department Care Team (Late st Contact Info) Description 06/23/2024 2:00 PM EST Office Visit Hematology [place] [address] Markel Borjas MD [facility] [address] [place] [address] 11/02/2024 12:00 PM EDT Appointment [place] [address] 11/02/2024 1:00 PM EDT Office [place] [address] Magdalena Peralta MD [facility] [place] [address] 03/01/2025 4:15 PM EDT Office Visit Dermatology at [address] [address] Marek Bonilla MD [address], [place] A DERMATOLOGY [place], [place] [phone] documented as of this encounter Results * [...] type documented in this encounter Care Teams Sap Manager Relationship Specialty Start Date End Date Deborah Quiroga, COMMUNITY SERVICE OFFICER COORDINATOR PCP - General Family Medicine 03/24/16 02/04/23 documented as of this encounter
--- OUTSIDE RECORDS SUMMARY | 2024-06-22 14:14 | XMS_ITS | Encounter Summary ---
[place] [address] Care Team Providers Care Production Broaching Machine Operator Name Role Phone Junaid, Deborah Shields APRN Primary Care Provider +1 [phone] Reason for Visit * Reason Onset Date Comments Results 12/03/2016 Encounter Details Date Type Department Care Team (Late st Contact Info) Description 12/03/2016 Telephone Hematology [place] [address] Yudith Valentine RN Results Social [...] EDT RN received call from Maddy at [facility] reporting critical WBC at 1.61, and ANC of 0.5. She will fax the full results to this office for credit risk review officer notified DR Borjas of above results documented in this encounter Plan of Treatment Upcoming Encounters Date Type Department Care Team (Late st Contact Info) Description 06/23/2024 2:00 PM EST Office Visit Hematology [place] [address] Markel Borjas MD [facility] [address] HEMATOLOGY [place] [address] 11/02/2024 12:00 PM EDT Appointment Pulmonology at [place] [phone] 11/02/2024 1:00 PM EDT Office [place] [address] Magdalena Peralta MD [facility] [place] [address] 03/01/2025 4:15 PM EDT Office Visit Dermatology at [place] [address] [place] [address] Marek Bonilla MD [address] [place] [address] documented as of this encounter Visit Diagnoses Not on filedocumented in this encounter Care Teams Production Broaching Machine Operator Relationship Specialty Start Date End Date Deborah Quiroga APRN PCP - General Family Medicine 03/24/16 02/04/23 documented as of this encounter
--- OUTSIDE RECORDS SUMMARY | 2024-06-22 14:14 | XMS_ITS | Encounter Summary ---
[place] [address] Care Team Providers Care Baggageman Name Role Phone Ashley Quirogan Cornelius ANURAG Primary Care Provider +[phone] Reason for Visit * Reason Onset Date Comments Medical Care Coordination 07/27/2017 Encounter Details Date Type Department Care Team (Late st Contact Info) Description 07/27/2017 Telephone Hematology [place] [address] Alexandrea Greenwood RN Medical Care Coordination Social [...] 12:25 PM EST Message received from executive legal secretary: Injection/Infusion Referral Call placed to [facility] @ [phone] Spoke w/ [facility] Services to be provided for pt are: CBC/CMP DONE Q6 MONTHS X2 STARTING NOVEMBER 2017 TECH confirmed they would provide services to pt - I CALLED PT, LM. Pt orders faxed to [phone] documented in this encounter Plan of Treatment Upcoming Encounters Date Type Department Care Team (Late st Contact Info) Description 06/23/2024 2:00 PM EST Office Visit Hematology [place] [address] Markel Borjas MD [facility] [address] [place] [address] 11/02/2024 12:00 PM EDT Appointment Pulmonology at [place] [address] 11/02/2024 1:00 PM EDT Office Visit Rheumatology at [place] [address] Magdalena Peralta MD [facility] [place] [address] 03/01/2025 4:15 PM EDT Office Visit Dermatology at [place] [address] [place] [address] Marek Bonilla MD [address] [place] [address] documented as of this encounter Visit Diagnoses Not on filedocumented in this encounter Care Teams Baggageman Relationship Specialty Start Date End Date Deborah Quiroga APRN PCP - General Family Medicine 03/24/16 02/04/23 documented as of this encounter
--- OUTSIDE RECORDS SUMMARY | 2024-06-22 14:14 | XMS_ITS | Encounter Summary ---
Author Organization [facility] Address [facility] [place] [address] Care Team Providers Care Personnel Research Scientist Name Role Phone Deborah Quiroga APRN Primary Care Provider +1- [phone] Encounter Details Date Type Department Care Team (Latest Contact Info) Description 10/14/2016 - 10/14/2016 11:59 PM EDT Hospital Encounter Radiology Library at [facility] [place] [address] Alirio Esparza MD Pain Discharge Disposition: Home [...] EST Office Visit [place]ematology [place] [address] Markel Borjas MD [facility] [address] [place] [address] 11/02/2024 12:00 PM EDT [place] [address] 11/02/2024 1:00 PM EDT Office [place] [address] Magdalena Peralta MD [facility] [place] [address] 03/01/2025 4:15 PM EDT Office Visit Dermatology at [place] [address] [place] [address] Marek Bonilla MD [address], [place] [address] documented as of this encounter Procedures Procedure [...] City/State/[facility] Co de Phone Number [place], [place] documented in this encounter Visit Diagnoses Diagnosis Pain Generalized pain documented in this encounter Care Teams Personnel Research Scientist Relationship Specialty Start Date End Date Deborah Quiroga, MERCHANDISE CLERK PCP - General Family Medicine 03/24/16 02/04/23 documented as of this encounter
--- OUTSIDE RECORDS SUMMARY | 2024-06-22 14:14 | XMS_ITS | Encounter Summary ---
Author Organization [facility] Address [facility] [place] [address] Care Team Providers Care Food Service Employee Name Role Phone Ashley Quirogazac Shields APRN Primary Care Provider +1- [phone] Encounter Details Date Type Department Care Team (Late st Contact Info) Description 02/06/2020 Orders Only Hematology [place] [address] Markel Borjas MD [facility] HEMATOLOGY [place] [address] Neutropenia, unspecified type Social History Tobacco Use [...] EST Office Visit Hematology [place] [address] Markel Borjas MD [facility] HEMATOLOGY [place] [address] 11/02/2024 12:00 PM EDT Appointment [place] [address] 11/02/2024 1:00 PM EDT Office [place] [address] Magdalena Peralta MD [facility] [place] [address] 03/01/2025 4:15 PM EDT Office Visit Dermatology at [place] [address] [place] [address] Marek Bonilla MD [address] [place] [address] documented as of this encounter Visit Diagnoses Diagnosis Neutropenia, unspecified type documented in this encounter Care Teams Food Service Employee Relationship Specialty Start Date End Date Deborah Quiroga APRN PCP - General Family Medicine 03/24/16 02/04/23 documented as of this encounter
--- OUTSIDE RECORDS SUMMARY | 2024-06-22 14:14 | XMS_ITS | Encounter Summary ---
Author Organization [facility] Address [facility] [place] [address] Care Team Providers Care Pigment Pumper Name Role Phone Ashley Quirogan Cornelius ANURAG Primary Care Provider +1 [phone] Encounter Details Date Type Department Care Team (Late st Contact Info) Description 07/21/2017 Orders Only Hematology and Oncology at [place] [phone] Alexandrea Greenwood RN Other neutropenia Social History [...] EST Office Visit Hematology and Oncology at [place] [phone] Markel Borjas MD [facility] [place] [address] 11/02/2024 12:00 PM EDT Appointment Pulmonology at [place] [phone] 11/02/2024 1:00 PM EDT Office Visit Rheumatology at [place] [phone] Magdalena Peralta MD [facility] [place] [address] 03/01/2025 4:15 PM EDT Office Visit Dermatology at [place] [address] [place] [address] Marek Bonilla MD [address] [place] [address] documented as of this encounter Visit Diagnoses Diagnosis Other neutropenia documented in this encounter Care Teams Pigment Pumper Relationship Specialty Start Date End Date Deborah Quiroga APRN PCP - General Family Medicine 03/24/16 02/04/23 documented as of this encounter
--- OUTSIDE RECORDS SUMMARY | 2024-06-22 14:14 | XMS_ITS | Encounter Summary ---
Author Organization [facility] Address [facility] [place] [address] Care Team Providers Care Director Medical Surgical Name Role Phone Junaid Deborah Shields APRN Primary Care Provider +1 [phone] Encounter Details Date Type Department Care Team (Late st Contact Info) Description 03/04/2020 External Results Hematology and Oncology at [place] [phone] Ther[place]i [place] Social History Tobacco Use Types [...] EST Office Visit Hematology and Oncology at [place] [phone] Markel Borjas MD [facility] [place] [address] 11/02/2024 12:00 PM EDT Appointment Pulmonology at [place] [phone] 11/02/2024 1:00 PM EDT Office Visit Rheumatology at [place] [phone] Magdalena Peralta MD [facility] [place] [address] 03/01/2025 4:15 PM EDT Office Visit Dermatology at [place] [address] [place] [address] Marek Bonilla MD [address] [place] [address] documented as of this encounter [...] filedocumented in this encounter Care Teams Director Medical Surgical Relationship Specialty Start Date End Date Deborah Quiroga APRN PCP - General Family Medicine 03/24/16 02/04/23 documented as of this encounter
--- OUTSIDE RECORDS SUMMARY | 2024-06-22 14:14 | XMS_ITS | Encounter Summary ---
[place] [address] Care Team Providers Care Accounting Clerks Supervisor Name Role Phone Deborah Quiroga ANURAG Primary Care Provider +1 [phone] Encounter Details Date Type Department Care Team (Late st Contact Info) Description 09/11/2016 Orders Only [place] [address] Alexandrea Greenwood RN Social History [...] the original note were not included. N [facility] HEM ONC [facility] [address] Date: 09/11/16 Patient Name: Onesimo Thacker : 1955 Diagnosis: Neutropenia Referral to [site]: [facility] Orders: ? Growth factor: [x] Neulasta 6mg SQ injection x 1 on 09/16/16 Signature: Markel Borjas MD beeper # [id number] Co-signature [if needed]: documented in this encounter Plan of Treatment Upcoming Encounters Date Type Department Care Team (Late st Contact Info) Description 06/23/2024 2:00 PM EST Office Visit [place] [address] Markel Borjas MD [facility] [address] HEMATOLOGY [place] [address] 11/02/2024 12:00 PM EDT [place]oint[place] [address] 11/02/2024 1:00 PM EDT Office [place] [address] Magdalena Peralta MD [facility] [place] [address] 03/01/2025 4:15 PM EDT Office Visit Dermatology at [place] [address] [facility] [address] [place] [address] Marek Bonilla MD [address] [facility] [facility] [address] [place] [address] documented as of this encounter Procedures Procedure Name Priority Date/Time Associated Diagnosis Comments TRANSESOPHAGEAL ECHOCARDIOGRAM (GAVINO) Routine 09/22/2016 documented in this encounter Results * Transesophageal Echocardiogram (GAVINO) (09/22/2016) Anatomical Region Laterality Modality Other 09/22/2016 Narrative 09/22/2016 8:30 AM EST Procedure: ?Transesophageal Echocardiogram Patient: ?ANDREW ONESIMO M ? (Age): 1955(61y) Med Rec#: ? [id number] ?Sex: ?M ? Site Loc: ? [facility] ?Ht / Wt: ??(cm)/ (kg) ? Pt. Loc: ?OR ? Study Date: ?? 09/21/2016 ?Pt. Type: Tape: ? Referring: Alirio Francisco Reading: Henrik Yarbrough ([id number]) Digital Editor: Jacobo Patel ([id number]) Interpreting Fellow: Jacobo Patel ([id number]) Diagnosis: *Aortic valve disorders (424.1) CPT Codes: *Echo GAVINO Full (81565) Indication: ?? AVR for severe Rhythm: ? [...] ? Mid-Inferior ?Normal ? Mid-Inferoseptal ?Normal ? Turner-Septal ? Normal ? Turner-Anterior ? Normal ? Turner-Lateral ?Normal ? Turner-Inferior ? Normal ? Turner-Tip ?Normal ? This report has been electronically signed by: Henrik Yarbrough M.D. ? 09/22/2016 08:30:41 Images reviewed and interpretation verified [facility] Cardiac Ultrasound [facility] Procedure Note Henrik Yarbrough MD - 09/22/2016 Procedure: Transesophageal Echocardiogram Patient: ANDREW Mejias (Age): 1955(61y) Med Rec#: [id number] Sex: M Site Loc: [facility] Ht / Wt: (cm)/ (kg) Pt. Loc: OR Study Date: 09/21/2016 Pt. Type: Tape: Referring: Alirio Francisco Reading: Henrik Yarbrough ([id number]) Digital Editor: Jacobo Patel ([id number]) Interpreting Fellow: Jacobo Patel ([id number]) Diagnosis: *Aortic valve disorders (424.1) CPT Codes: *Echo GAVINO Full (50388) Indication: AVR for severe Rhythm: Sinus SUMMARY: [...] Normal Mid-Posterolateral Normal Mid-Inferior Normal Mid-Inferoseptal Normal Turner-Septal Normal Turner-Anterior Normal Turner-Lateral Normal Turner-Inferior Normal Turner-Tip Normal This report has been electronically signed by: Henrik Yarbrough M.D. 09/22/2016 08:30:41 Images reviewed and interpretation verified [facility] Card[facility]trasound [facility] Unknown ECHO ORDERABLES documented in this encounter Visit Diagnoses Not on filedocumented in this encounter Care Teams Accounting Clerks Supervisor Relationship Specialty Start Date End Date Deborah Quiroga APRN PCP - General Family Medicine 03/24/16 02/04/23 documented as of this encounter
--- OUTSIDE RECORDS SUMMARY | 2024-06-22 14:15 | XMS_ITS | Encounter Summary ---
Author Organization [facility] Address [facility] [place] [address] Care Team Providers Care Coal Tram Driver Name Role Phone Junaid Deborah Shields APRN Primary Care Provider +1 [phone] Reason for Visit * Auth/Cert Specialty Diagnoses / Procedures Referred By Crispin t Referred To Contact Diagnoses AVS Procedures CARDIAC CATHETERIZATION Referral ID Status Reason Start Date Expiration Date Visits Re quested Visits Authorized [id number] 1 1 Encounter Details Date Type Department Care Team (Late st Contact Info) Description 06/03/2016 7:30 AM EDT - 06/03/2016 8:30 AM EDT Surgery [place] [phone] Mario Alberto Escobedo MD [facility] [place] [address] CARDIAC CATHETERIZATION Social History Tobacco Use Types [...] by your doctor, do not take any lelw-jmv-rtxehvc medicinesor herbal preparations without first discussing this with your doctor or pharmacist. There is the possibility of side effects and interactions when these are combined. Follow Up Care Who to call with questions or problems If there are any questions or problems that you think might be related to your cardiac cath or angioplasty, contact the family consumer science fcs teacher construction worker by calling [facility] at . * Patient Instructions* Felicia Corrigan - 06/03/2016 9:33 AM EDT Cardiology Instructions Call your doctor if: Chest pain, dyspnea, pain or swelling in legs occurs. If you have non-emergent questions between now and the time of your follow up appointments: -During 8am-5pm Wednesday through Wednesday call [phone] to speak with a nurse in the cardiology clinic -All other times call [phone] and ask to speak to the catheterization laboratory technician construction worker. MEDICATIONS - restart your spironolactone, discontinue [...] Appointments: Primary care provider: Cardiology: Deborah Hahn, DESK MANAGER [phone] Follow up as planned or as needed. Dr. Esparza [phone] Other follow-up appointment: Hematology - Dr. Mario [...] EST Office Visit [place] [address] Markel Borjas MD [facility] [address] [place] [address] 11/02/2024 12:00 PM EDT [place] [address] 11/02/2024 1:00 PM EDT [place] [address] Magdalena Peralta MD [facility] [place] [address] 03/01/2025 4:15 PM EDT Office Visit Dermatology at [place] [address] [place] [address] Marek Bonilla MD [address] [place] [address] documented as of this encounter Procedures Procedure [...] Escobedo MD CHEMISTRY ORDERABLES [facility] [place] [address] * Methylmalonic acid, serum (06/03/2016 11:45 AM EDT) Methylmalonic Acid (NOVEMBER) 0.21 <=0.40 nmol/mL [facility] Comment: Test Performed by: [address] [address] Manager Casino: Raymond Chaudhry II, M.D., Ph.D. Blood specimen (specimen) 06/03/2016 11:45 AM EDT 06/03/2016 1:57 PM EDT Narrative Resulting Agency Comment Spec In Lab Mario Alberto Escobedo MD LAB SEND OUT ORDERAB LES Performing Organization Address [facility] Co de Phone Number [facility] [place] [address] * Granulocyte Antibody (06/03/2016 11:45 AM EDT) Granulocyte Ab (NOVEMBER) Negative Not Applicable [facility] Comment: ADDITIONAL INFORMATION Method: Immunofluorescent Assay Performing Laboratory CLIA# [id number] This test was developed and its performance characteristics determined by [facility] in a manner consistent with CLIA requirements. This test has not been cleared or approved by the U.S. Food and Drug Administration. Test Performed by: [place] [address] Manager Casino: Raymond Chaudhry II, M.D., Ph.D. Blood specimen (specimen) 06/03/2016 11:45 AM EDT 06/03/2016 1:57 PM EDT Narrative Resulting Agency Comment Spec In Lab Mario Alberto Escobedo MD LAB SEND OUT ORDERAB LES Performing Organization Address [facility] Co de Phone Number [facility] [place] [address] * TSH (06/03/2016 11:45 AM EDT) Thyroid Stimulating Hormone 2.18 0.27 - 4.20 mcIU/mL [facility] Blood specimen (specimen) 06/03/2016 11:45 AM EDT 06/03/2016 12:11 PM EDT Narrative Resulting Agency Comment Spec In Lab Mario Alberto Escobedo MD CHEMISTRY ORDERABLES Performing Organization Address [facility] Co de Phone Number [facility] [place] [address] * Homocysteine Total, Plasma (06/03/2016 11:45 AM EDT) Homocystine 9 <=15 mcmol/L [facility] Blood specimen (specimen) 06/03/2016 11:45 AM EDT 06/03/2016 12:11 PM EDT Narrative Resulting Agency Comment Spec In Lab Mario Alberto Escobedo MD CHEMISTRY ORDERABLES [facility] [place] [address] * Folate, serum (06/03/2016 11:45 AM EDT) Folate >20.0 4.8 - 24.2 ng/mL [facility] Blood specimen (specimen) 06/03/2016 11:45 AM EDT 06/03/2016 12:04 PM EDT Narrative Resulting Agency Comment Spec In Lab Mario Alberto Escobedo MD CHEMISTRY ORDERABLES Performing Organization Address City/[facility]/ZIP Co de Phone Number [facility] [place] [address] * (ABNORMAL) Sedimentation rate (06/03/2016 11:45 AM EDT) Sedimentation Rate Automated 41(H) 0 - 20 mm/hr [facility] Blood specimen (specimen) 06/03/2016 11:45 AM EDT 06/03/2016 12:04 PM EDT Narrative Resulting Agency Comment Spec In Lab Mario Alberto Escobedo MD HEMATOLOGY ORDERABLE S [facility] [place] [address] * Lactate Dehydrogenase (06/03/2016 11:45 AM EDT) Lactate Dehydrogenase 164 110 - 220 unit/L [facility] Blood specimen (specimen) 06/03/2016 11:45 AM EDT 06/03/2016 12:11 PM EDT Narrative Resulting Agency Comment Spec In Lab Mario Alberto Escobedo MD CHEMISTRY ORDERABLES [facility] [place] [address] * Comprehensive metabolic panel (non-fasting) (06/03/2016 11:45 [...] the following links into your internet browser. [email or web address] Blood specimen (specimen) 06/03/2016 11:45 AM EDT 06/03/2016 12:11 PM EDT Narrative Resulting Agency Comment Spec In Lab Mario Alberto Escobedo MD CHEMISTRY ORDERABLES [facility] [place] [address] documented in this encounter Visit Diagnoses Diagnosis [...] Hernandez) documented in this encounter Care Teams Coal Tram Driver Relationship Specialty Start Date End Date Deborah Quiroga APRN PCP - General Family Medicine 03/24/16 02/04/23 documented as of this encounter
--- OUTSIDE RECORDS SUMMARY | 2024-06-22 14:15 | XMS_ITS | Encounter Summary ---
Author Organization [facility] [place] [address] Care Team Providers Care Cartridge Assembling Machine Adjuster Name Role Phone Junaid, Deborah Shields APRN Primary Care Provider +[phone] Encounter Details Date Type Department Care Team (Late st Contact Info) Description 05/19/2016 10:00 AM EDT Office Visit [place] [phone] Alirio Esparza MD Nonrheumatic aortic valve stenosis [...] EST Office Visit Hematology and Oncology at [place] [phone] Markel Borjas MD [facility] [address] [place] [address] 11/02/2024 12:00 PM EDT Appointment [place] [address] 11/02/2024 1:00 PM EDT Office [place] [address] Magdalena Peralta MD [facility] [place] [address] 03/01/2025 4:15 PM EDT Office Visit Dermatology at [place] [address] [place] [address] Marek Bonilla MD [address] [place] [address] documented as of this encounter Results * [...] (Bezet) 448 ms MUSE SYSTEM Calculated P [place] 37 degrees MUSE SYSTEM Calculated R [place] 31 degrees MUSE SYSTEM Calculated T [place] 25 degrees MUSE SYSTEM INTERPRETATION Normal sinus [...] LABORATORY Est Glomerular Filtration Rate 60 >=60 [facility] Comment: [...] the following links into your internet browser. [email or web address] Blood specimen (specimen) 05/19/2016 11:32 AM EDT 05/19/2016 11:41 AM EDT Narrative Resulting Agency Comment Spec In Lab Alirio Esparza MD [place] [address] documented in this encounter Visit Diagnoses Diagnosis Nonrheumatic aortic valve stenosis Aortic valve disorders Nonrheumatic aortic valve stenosis Aortic valve disorders documented in this encounter Care Teams Cartridge Assembling Machine Adjuster Relationship Specialty Start Date End Date Deborah Quiroga, STUDIO SET UP WORKER PCP - General Family Medicine 03/24/16 02/04/23 documented as of this encounter
--- OUTSIDE RECORDS SUMMARY | 2024-06-22 14:15 | XMS_ITS | Encounter Summary ---
Author Organization [facility] Address [facility] [place] [address] Care Team Providers Care Acls Nurse Name Role Phone Ashley Quirogazac Shields APRN Primary Care Provider [phone] [phone] Encounter Details Date Type Department Care Team (Late st Contact Info) Description 08/18/2016 Orders Only Cardiac Surgery at [place] [phone] Alirio Esparza MD Aortic valve stenosis, unspecified [...] Visit Hematology and Oncology at [place] [phone] Markel Borjas MD [facility] [address] [place]EMATOLOGY [place] [address] 11/02/2024 12:00 PM EDT Appointment Pulmonology at [place] [phone] 11/02/2024 1:00 PM EDT Office Visit Rheumatology at [place] [phone] Magdalena Peralta MD [facility] [place] [address] 03/01/2025 4:15 PM EDT Office Visit Dermatology at [place] [address] [place] [address] Marek Bonilla MD [address], [place] DERMATOLOGY [place], [place] [phone] documented as of this encounter Results * Basic Metabolic Panel (non-fasting) (08/18/2016 4:50 PM EST) [facility] Glucose 82 65 - 199 mg/dL WHITE [...] the following links into your internet browser. [email or web address] Blood specimen (specimen) 08/18/2016 4:50 PM EST 08/18/2016 5:03 PM EST Narrative Resulting Agency Comment Spec In Lab Alirio Esparza MD CHEMISTRY ORDERABLE S [facility] [place] [phone] documented in this encounter Visit Diagnoses Diagnosis Aortic valve stenosis, unspecified etiology documented in this encounter Care Teams Acls Nurse Relationship Specialty Start Date End Date Deborah Quiroga APRN PCP - General Family Medicine 03/24/16 02/04/23 documented as of this encounter
--- OUTSIDE RECORDS SUMMARY | 2024-06-22 14:15 | XMS_ITS | Encounter Summary ---
Author Organization [facility] Address [facility] [place] [address] Care Team Providers Care Physician Interventional Cardiologist Name Role Phone Ashley Quirogazac Shields APRN Primary Care Provider +1 [phone] Encounter Details Date Type Department Care Team (Latest Contact Info) Description 08/18/2016 4:40 PM EST Laboratory Appointment Lab at [place] [phone] Aortic valve stenosis, unspecified etiology Social History [...] EST Office Visit Hematology and Oncology at [place] [phone] Markel Borjas MD [facility] [place] [address] 11/02/2024 12:00 PM EDT Appointment Pulmonology at [place] [phone] 11/02/2024 1:00 PM EDT Office Visit Rheumatology at [place] [phone] Magdalena Peralta MD [facility] [place] [address] 03/01/2025 4:15 PM EDT Office Visit Dermatology at [place] [address] [place] [phone] Marek Bonilla MD [address], [place] [address] documented as of this encounter Procedures Procedure Name Priority Date/Time Associated Diagnosis Comments ABORH RECHECK STATUS Routine 08/18/2016 4:50 PM EST TYPE AND SCREEN, SDP (FUTURE SURGERY, [facility] SAME DAY PROGRAM ONLY) Routine 08/18/2016 4:50 [...] Esparza MD BLOOD BANK LAB BETH LAEJO [facility] [place] [address] * Antibody screen (08/18/2016 4:50 PM EST) Ab Screen Interp Negative [facility] Expires at 0670 on: 09/24/2016 [facility] Comment: Corrected from 09/17/16 12:00 [Unknown] on 09/09/16 02:32 by Shireen Treviño Blood specimen (specimen) 08/18/2016 4:50 PM EST 08/18/2016 5:11 PM EST Narrative Resulting Agency Comment Spec In Lab Alirio Esparza MD BLOOD BANK LAB BETH ORTEGAROMERO Performing Organization Address [facility] Co de Phone Number [facility] [place] [address] * ABO/Rh Typing (08/18/2016 4:50 PM EST) Pathologist [facility] ABORH Type B Pos [facility] Blood specimen (specimen) 08/18/2016 4:50 PM EST 08/18/2016 5:11 PM EST Narrative Resulting Agency Comment Spec In Lab Alirio Esparza MD BLOOD BANK LAB BETH ORTEGAROMERO Performing Organization Address [facility] de Phone Number [facility] [place] [address] * Basic Metabolic Panel (non-fasting) (08/18/2016 4:50 PM EST) [facility] Glucose 82 65 - 199 [...] the following links into your internet browser. [email or web address] Blood specimen (specimen) 08/18/2016 4:50 PM EST 08/18/2016 5:03 PM EST Narrative Resulting Agency Comment Spec In Lab Alirio Esparza MD CHEMISTRY ORDERABLE S Performing Organization Address City/State/[facility] Co de Phone Number [facility] [place] [address] documented in this encounter Visit Diagnoses Diagnosis Aortic valve stenosis, unspecified etiology documented in this encounter Care Teams Physician Interventional Cardiologist Relationship Specialty Start Date End Date Deborah Quiroga APRN PCP - General Family Medicine 03/24/16 02/04/23 documented as of this encounter
--- OUTSIDE RECORDS SUMMARY | 2024-06-22 14:15 | XMS_ITS | Encounter Summary ---
Author Organization [facility] [place] [address] Care Team Providers Care Design Consultant Name Role Phone Ashley Quirogazac Shields APRN Primary Care Provider [phone] [phone] Encounter Details Date Type Department Care Team (Late st Contact Info) Description 07/31/2016 External Results Hematology and Oncology at [place] [phone] Alexandrea Greenwood RN Neutropenia, unspecified type Social [...] EST Office Visit H[place]ology [place] [address] Markel Borjas MD [facility] DR [place] [address] 11/02/2024 12:00 PM EDT Appointment [place] [address] 11/02/2024 1:00 PM EDT Office Visit Rheumatology at [place] [phone] Magdalena Peralta MD [facility] [place] [address] 03/01/2025 4:15 PM EDT Office Visit Dermatology at [place] [address] [place] [address] Marek Bonilla MD [address] [place] [address] documented as of this encounter Procedures Procedure [...] documented in this encounter Care Teams Design Consultant Relationship Specialty Start Date End Date Deborah Quiroga APRN PCP - General Family Medicine 03/24/16 02/04/23 documented as of this encounter
--- OUTSIDE RECORDS SUMMARY | 2024-06-22 14:15 | XMS_ITS | Encounter Summary ---
Author Organization [facility] Address [facility] [place] [address] Care Team Providers Care Front Desk Team Member Name Role Phone RomieDanni rouse ANURAG Primary Care Provider [phone] Encounter Details Date Type Department Care Team (Late st Contact Info) Description 01/23/2014 Orders Only Cardiology at [address] [phone] Lee Kincaid MD [facility] [address] CARDIOLOGY [place], [place] [phone] SOB (shortness of breath) (Primary Dx) Social [...] Office Visit Hematology [place] [address] Markel Borjas MD [facility] [place] [address] 11/02/2024 12:00 PM EDT Appointment [place] [address] 11/02/2024 1:00 PM EDT Office [place] [address] Magdalena Peralta MD [facility] [place] [address] 03/01/2025 4:15 PM EDT Office Visit Dermatology at [place] [address] [place] [address] Marek Bonilla MD [address], [address] Katherine [place] [address] documented as of this encounter Results * Echocardiogram Transthoracic(Leb) (01/23/2014 3:17 PM EDT) Pathologist Graceful Tables EF 50 [facility] SYSTEM Anatomical Region Laterality Modality Other 01/23/2014 Narrative 01/23/2014 4:35 PM EDT Procedure: ? Transthoracic Echocardiogram Patient: ? KIRSTIE ECHOLS M ?(Age): 1955(58) Med Rec#: ?[id number] ? Sex: ?F ? Site Loc[facility] ? Ht / Wt: ??158(cm)/93(kg) Pt. Loc: ? Adult Floor ?BSA: ?2.02 Study Date: ?01/23/2014 ? Pt. Type: Inpatient Tape: ? Referring: Lee Kincaid ([id number]) Referring: ANNALISA Tin Worker: Miguel Beverly Diagnosis:CPT Code(s): ??Echo Full (93629), ??Spectral Doppler (06510), Color Doppler (42613), Indication(s): ??Aortic stenosis Rhythm: Sinus HR ?BP [...] ? Mid-Inferior ?Hypokinetic ? Mid-Inferoseptal ?Hypokinetic ? [place]-Septal ? Hypokinetic ? [place]-Anterior ? Hypokinetic ? [place]-Lateral ?Hypokinetic ? [place]-Inferior ? Hypokinetic ? [place]-Tip ?Hypokinetic ? Chambers ?Value ?Units (Range) ? [...] 01/23/2014 16:34:37 Images reviewed and interpretation verified [facility] Cardiac Ultrasound Laboratory Procedure Note Lee Kincaid MD - 01/23/2014 Procedure: Transthoracic Echocardiogram Patient: KIRSTIE Mejias (Age): 1955(58) Med Rec#: [id number] Sex: F Site Loc: [facility] Ht / Wt: 158(cm)/93(kg) Pt. Loc: Adult Floor BSA: 2.02 Study Date: 01/23/2014 Pt. Type: Inpatient Tape: Referring: Lee Kincaid ([id number]) Referring: ANNALISA Tin Worker: Miguel Beverly Diagnosis:CPT Code(s): Echo Full (84227), Spectral Doppler (71619), Color Doppler (30263), Indication(s): Aortic stenosis Rhythm: Sinus HR BP [...] Hypokinetic Mid-Posterolateral Hypokinetic Mid-Inferior Hypokinetic Mid-Inferoseptal Hypokinetic [place]-Septal Hypokinetic [place]-Anterior Hypokinetic [place]-Lateral Hypokinetic [place]-Inferior Hypokinetic [place]-Tip Hypokinetic Chambers Value Units (Range) IVSd 2D [...] 01/23/2014 16:34:37 Images reviewed and interpretation verified [facility] Cardiac Ultrasound Laboratory Lee Kincaid MD ECHO ORDERABLES documented in this encounter Visit Diagnoses Diagnosis SOB (shortness of breath)- Primary Shortness of breath documented in this encounter Care Teams Front Desk Team Member Relationship Specialty Start Date End Date Danni Laird APRN [address] [place] [address] PCP - General 01/23/14 11/11/14 documented as of this encounter
--- OUTSIDE RECORDS SUMMARY | 2024-06-22 14:15 | XMS_ITS | Encounter Summary ---
Author Organization [facility] [place] [address] Care Team Providers Care Rn Patient Care Name Role Phone Ashley Quirogazac Shields APRN Primary Care Provider [phone] [phone] Encounter Details Date Type Department Care Team (Late st Contact Info) Description 08/04/2016 External Results Hematology and Oncology at [place] [phone] Alexandrea Greenwood RN Neutropenia, unspecified type Social [...] EST Office Visit [place] [address] Markel Borjas MD [facility] [address] [place]EMAT[place] [address] 11/02/2024 12:00 PM EDT [place] [address] 11/02/2024 1:00 PM EDT Office Visit Rheumatology at [place] [phone] Magdalena Peralta MD [facility] [place] [address] 03/01/2025 4:15 PM EDT Office Visit Dermatology at [place] [address] [place] [address] Marek Bonilla MD [address] [place] [address] documented as of this encounter Procedures Procedure [...] documented in this encounter Care Teams Rn Patient Care Relationship Specialty Start Date End Date Deborah Quiroga APRN PCP - General Family Medicine 03/24/16 02/04/23 documented as of this encounter
--- OUTSIDE RECORDS SUMMARY | 2024-06-22 14:15 | XMS_ITS | Encounter Summary ---
Author Organization Formerly [facility] Address [facility] [place] [address] Care Team Providers Care Land Checker Name Role Phone Ashley Quirogan Cornelius ANURAG Primary Care Provider +1- [phone] Encounter Details Date Type Department Care Team (Late st Contact Info) Description 05/22/2016 Orders Only Cardiology at [address] [phone] Chele Randolph PA [facility] DR CARDIOLOGY DEPT. [place], [place] [phone] Aortic valve stenosis, unspecified etiology Social History [...] EST Office Visit Hematology [place] [address] Markel Borjas MD [facility] DR HEMATOLOGY AND ONCOLOGY [place], [place] [phone] 11/02/2024 12:00 PM EDT Appointment [place] [address] 11/02/2024 1:00 PM EDT Office [place] [address] Magdalena Peralta MD [facility] [place] [address] 03/01/2025 4:15 PM EDT Office Visit Dermatology at [place] [address] [facility] [place] [phone] Marek Bonilla MD [address], [place] [address] documented as of this encounter Procedures Procedure Name Priority Date/Time Associated Diagnosis Comments CARDIAC CATHETERIZATION Routine 06/03/20 16 9:13 AM EDT Aortic valve stenosis, unspecified etiology documented in this encounter Results * CARDIAC CATHETERIZATION (06/03/2016 9:13 AM EDT) Anatomical Region Laterality Modality Other Narrative 06/03/2016 10:13 AM EDT ?[facility] ? Cardiac Catheterization/Intervention Report ? Patient Name: Purnima Thacker. ? Procedure Date: 06/03/2016 ? A #: [id number] ? Primary Physician: Fanny, Nitesh Shields ? Case #: [id number] ? File Name: [id number] ? Catheterization Order Number: [id number] ? [facility] ? Final Report [place], [place] ? Patient Name: ? Purnima M. Kirstie ? ID#: ?[id number] ? : ?1955 ? Procedure Date: ? [...] Last Ammended: 09/21/2016 ??09:37 ? Procedure Note Nitehs Escobedo MD - 09/21/2016 [facility] Cardiac Catheterization/Intervention Report Patient Name: Purnima Thacker Procedure Date: 06/03/2016 A #: [id number] Primary Physician: Nitesh Escobedo Case #: [id number] File Name: [id number] Catheterization Order Number: [id number] [facility] FinalReport [place], [place] Patient Name: Purnima Thacker ID#:[id number] :1955 Procedure Date: June 03, 2016 Case [...] etiology documented in this encounter Care Teams Land Checker Relationship Specialty Start Date End Date Deborah Quiroga, BLUE LINE HANGER PCP - General Family Medicine 03/24/16 02/04/23 documented as of this encounter
--- OUTSIDE RECORDS SUMMARY | 2024-06-22 14:15 | XMS_ITS | Encounter Summary ---
Author Organization Formerly [facility] [place] [address] Care Team Providers Care Rustic Terrazzo Setter Name Role Phone Ashley Quirogazac Shields APRN Primary Care Provider +1 [phone] Encounter Details Date Type Department Care Team (Late st Contact Info) Description 07/22/2016 External Results Hematology and Oncology at [place] [phone] Alexandrea Greenwood RN Neutropenia, unspecified type Social [...] Office Visit Hematology [place] [address] Markel Borjas MD [facility] DR [place] [address] 11/02/2024 12:00 PM EDT Appointment [place] [address] 11/02/2024 1:00 PM EDT Office Visit Rheumatology at [place] [phone] Magdalena Peralta MD [facility] [place] [address] 03/01/2025 4:15 PM EDT Office Visit Dermatology at [place] [address] [place] [address] Marek Bonilla MD [address], [place] [address] documented as of this encounter Procedures Procedure Name Priority Date/Time Associated Diagnosis Comments COPPER, SERUM Routine 07/20/2016 10:30 AM EST Neutropenia, unspecified type CMV PCR, QUANTITATIVE Routine 07/20/2016 10:30 AM EST Neutropenia, unspecified type MONONUCLEOSIS SCREEN (APD/JEANNINE/[facility]) Routine 07/20/2016 10:30 AM EST Neutropenia, unspecified [...] type documented in this encounter Care Teams Rustic Terrazzo Setter Relationship Specialty Start Date End Date Deborah Quiroga APRN PCP - General Family Medicine 03/24/16 02/04/23 documented as of this encounter
--- OUTSIDE RECORDS SUMMARY | 2024-06-22 14:15 | XMS_ITS | Encounter Summary ---
Author Organization Formerly [facility] [place] [address] Care Team Providers Care Delivery Technician Name Role Phone Ashley Quirogazac Shields APRN Primary Care Provider +1 [phone] Encounter Details Date Type Department Care Team (Late st Contact Info) Description 07/31/2016 Orders Only Hematology and Oncology at [place] [phone] Alexandrea Greenwood RN Neutropenia, unspecified type Social [...] EST Office Visit [place] [address] Markel Borjas MD [facility] [address] [place] [address] 11/02/2024 12:00 PM EDT [place] [address] 11/02/2024 1:00 PM EDT Office Visit Rheumatology at [place] [phone] Magdalena Peratla MD [facility] [place] [address] 03/01/2025 4:15 PM EDT Office Visit Dermatology at [place] [address] [place] [address] Marek Bonilla MD [address], [place] [address] documented as of this encounter [...] type documented in this encounter Care Teams Delivery Technician Relationship Specialty Start Date End Date Deborah Quiroga APRN PCP - General Family Medicine 03/24/16 02/04/23 documented as of this encounter
--- OUTSIDE RECORDS SUMMARY | 2024-06-22 14:15 | XMS_ITS | Encounter Summary ---
[place] [address] Care Team Providers Care Bonding Machine Tender Name Role Phone Deborah Quiroga ANURAG Primary Care Provider [phone]- [phone] Reason for Visit * Reason Onset Date Comments Medical Care Coordination 07/17/2016 Encounter Details Date Type Department Care Team ([facility] Contact Info) Description 07/17/2016 Telephone Hematology [place] [phone] Alexandrea Greenwood RN Medical Care Coordination Social [...] 12:07 PM EST Message received from secretary office clerk: Injection/Infusion Referral Call placed to [phone]). Spoke w/ Pasquale. Services to be provided for pt are: Labs @ 10am ([facility]) & Neulasta @ 11am on 07/20/16, CBC only on 07/30/16 Pasquale confirmed they would provide services to pt and I left [facility] for pt to call for appt info. Pt demographics, office note, med list and orders faxed to [facility] & [facility] documented in this encounter Plan of Treatment Upcoming Encounters Date Type Department Care Team (Late st Contact Info) Description 06/23/2024 2:00 PM EST Office Visit Hematology [place] [address] Markel Borjas MD [facility] [address] [place] [address] 11/02/2024 12:00 PM EDT Appointment [place] [phone] 11/02/2024 1:00 PM EDT Office [place] [phone] Magdalena Peralta MD [facility] [place] [address] 03/01/2025 4:15 PM EDT Office Visit Dermatology at [place] [address] [facility] [place] [phone] Marek Bonilla MD [address], [place] [address] documented as of this encounter Visit Diagnoses Not on filedocumented in this encounter Care Teams Bonding Machine Tender Relationship Specialty Start Date End Date Deborah Quiroga APRN PCP - General Family Medicine 03/24/16 02/04/23 documented as of this encounter
--- OUTSIDE RECORDS SUMMARY | 2024-06-22 14:15 | XMS_ITS | Encounter Summary ---
Author Organization [facility] [place] [address] Care Team Providers Care Mosaic Floor Layer Name Role Phone Deborah Quiroga APRN Primary Care Provider [phone] [phone] Encounter Details Date Type Department Care Team (Latest Contact Info) Description 07/10/2016 2:54 PM EST - 07/10/2016 11:59 PM EST Hospital En[place] [phone] Discharge Disposition: Home Social History Tobacco Use [...] EST Office Visit Hematology [place] [address] Markel Borjas MD [facility] [address] [place] [address] 11/02/2024 12:00 PM EDT Appointment [place] [phone] 11/02/2024 1:00 PM EDT Office [place] [phone] Magdalena Peralta MD [facility] [place] [address] 03/01/2025 4:15 PM EDT Office Visit Dermatology at [address] [place] [phone] Marek Bonilla MD [address], [place] [address] documented as of this encounter Procedures Procedure Name Priority Date/Time Associated Diagnosis Comments BONE MARROW FINAL REPORT Routine 07/10/2016 3:43 PM EST documented in this encounter Results * Bone Marrow Final Report (07/10/2016 3:43 PM EST) Final Diagnosis [id number] ?Location: OPW The signing pathologist has (i) examined the relevant preparation(s) for the specimen(s) and (ii) rendered or confirmed the diagnosis(es). . ? Bone Marrow Final DIAGNOSIS BONE MARROW (PERIPHERAL SMEAR, ASPIRATE SMEAR, TOUCH PREP, CLOT SECTION, CORE BIOPSY); [OSR# [id number], COLLECTED 06/23/2016, 19 SLIDES]: ?? 1. 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 Polytypic plasma cell staining, high background Lambda ?Polytypic plasma cell staining, high background Block: ? B2 (Core biopsy 2) Fixative: ?? Formalin ANTIBODY: ?? RESULT/COMMENT CD3 ? Scattered small lymphocytes and lymphoid aggregates highlighted CD20 ?Few scattered small lymphocytes stain ( ?? <CD3 in aggregates) CD138 ? Scattered plasma cells represent 3-4% of the cellularity Taft ? Polytypic plasma cell staining, high background [...] CONSULTATION CASE A - 19 slides labeled [id number], collection date 06/23/2016. [id number] Report to: [facility] Surgical Pathology Department [facility], [facility], 2nd Floor [address], [place] ??[address] 07/13/2016 11:38 AM EST [facility] Consult Case 07/10/2016 3:43 PM EST 07/10/2016 3:43 PM EST Nitesh Pina Jr., MD PATHOLOGY/CYTOLOGY O RDERABLES [facility] [place] [address] documented in this encounter Visit Diagnoses Not on filedocumented in this encounter Care Teams Mosaic Floor Layer Relationship Specialty Start Date End Date Deborah Quiroga APRN PCP - General Family Medicine 03/24/16 02/04/23 documented as of this encounter
--- OUTSIDE RECORDS SUMMARY | 2024-06-22 14:15 | XMS_ITS | Encounter Summary ---
Author Organization [facility] [place] [address] Care Team Providers Care Meter Readers Supervisor Name Role Phone Ashley Quirogazac Shields APRN Primary Care Provider [phone] Reason for Visit * Consultation (Urgent) - Closed Specialty Diagnoses / Procedures Referred By Contac t Referred To Contact Cardiac Surgery Diagnoses aortic stenosis, consideration for valve replacement Antelmo Burrell MD [address] [place] [address] [place] [address] Ailrio Esparza MD [facility] DR C[place] [address] Referral ID Status Reason Start Date Expiration Date V isits Requested Visits Authorized [id number] Closed Connection Center 03/04/2016 03/04/2017 1 1 Encounter Details Date Type Department Care Team (Late st Contact Info) Description 03/24/2016 10:40 AM EDT Office [place] [phone] Alirio Esparza MD Aortic valve stenosis, unspecified [...] a patient of Antelmo Burrell [facility] Cardiology. Mrs. Thacker is being [...] 30 minute visit, 20 minutes were spent [id number] with the patient discussing aortic stenosis and valve replacement. documented in this encounter Plan of Treatment Upcoming Encounters Date Type Department Care Team (Late st Contact Info) Description 06/23/2024 2:00 PM EST Office Visit [place]emat[place] [address] Markel Borjas MD [facility] DR HEMATOLOGY [place] [address] 11/02/2024 12:00 PM EDT Appointment Pulmonology at [place] [phone] 11/02/2024 1:00 PM EDT Office [place] [phone] Magdalena Peralta MD [facility] [place] [address] 03/01/2025 4:15 PM EDT Office Visit Dermatology at [place] [address] [facility] [address] Marek Bonilla MD [address], [place] [address] documented as of this encounter Visit Diagnoses Diagnosis Aortic valve stenosis, unspecified etiology documented in this encounter Care Teams Meter Readers Supervisor Relationship Specialty Start Date End Date Deborah Quiroga APRN PCP - General Family Medicine 03/24/16 02/04/23 documented as of this encounter
--- OUTSIDE RECORDS SUMMARY | 2024-06-22 14:15 | XMS_ITS | Encounter Summary ---
Author Organization [facility] Address [facility] [place] [address] Care Team Providers Care Special Services Coordinator Name Role Phone Junaid Debroah Shields APRN Primary Care Provider [phone] Encounter Details Date Type Department Care Team (Late st Contact Info) Description 07/17/2016 9:00 AM EST Office Visit Hematology [place] [address] Markel Borjas MD [facility] [address] [place] [address] Neutropenia, unspecified type Social History Tobacco Use [...] 07/17/2016 9:00 AM EST Hematology Outpatient Clinic [facility] Hematology Outpatient Consult Note CC: [...] TOUCH PREP, CLOT SECTION, CORE ??BIOPSY); [OSR# [id number], COLLECTED 06/23/2016, 19 SLIDES]: ?1. ??Normocellular marrow [...] a clonal lymphoproliferative or myeloproliferative disorder (OSR# [id number]) Chromosome analysis on the marrow aspirate revealed [...] 24 hour(s)). Labs will be drawn at [facility] next week Imaging As above - [...] leukopenia. Will consi kanwal talking to pt's justice professor about a switch from ACEI to ARB [...] the original note were not included. N [facility] [phone] Date: 07/17/16 Patient Name: Purnima Thacker : 1955 Diagnosis: neutropenia Referral to [site]: [facility] Orders: ? Labs: Fax results to . [x] Draw CBC, copper level, CMV PCR, mononucleosis screen on 07/20 Repeat CBC on 07/30 (to measure response of WBC after Neulasta) ? Growth factor: [x] Neulasta 6mg SQ injection x 1 on 07/20/2016 Signature: Markel Borjas MD beeper # [id number] documented in this encounter Plan of Treatment Upcoming Encounters Date Type Department Care Team (Late st Contact Info) Description 06/23/2024 2:00 PM EST Office Visit Hematology [place] [address] Markel Borjas MD [facility] [address] [place] [address] 11/02/2024 12:00 PM EDT Appointment [place] [address] 11/02/2024 1:00 PM EDT Office [place] [address] Magdalena Peralta MD [facility] [place] [address] 03/01/2025 4:15 PM EDT Office Visit Dermatology at [place] [address] [facility] [place] [address] Marek Bonilla MD [address], [place] [address] documented as of this encounter Results * (ABNORMAL) CBC (with Diff) (07/31/2016 9:40 AM EST) [facility] White Blood Cell 2.23(EXTER NAL/ABN) 4.4 [...] * Mononucleosis Screen (07/20/2016 10:30 AM EST) [facility] Mononucleosis Screen neg neg - neg EXTERNAL LAB Blood specimen (specimen) 07/20/2016 10:30 AM EST Markel Borjas MD IMMUNOLOGY ORDERAB LES EXTERNAL LAB * Copper, serum (07/20/2016 10:30 AM EST) [facility] Copper (NOVEMBER) 1.09 0.75 - 1.45 EXTERNAL LAB Blood specimen (specimen) 07/20/2016 10:30 AM EST Markel Borjas MD LAB SEND OUT ORDER JODIE Performing Organization Address City/[facility]/ZIP Co de Phone Number EXTERNAL LAB * CMV PCR, Quantitative (07/20/2016 10:30 AM EST) CMV PCR,Quantitati ve undetected EXTERNAL LAB Blood specimen (specimen) 07/20/2016 10:30 AM EST Markel Borjas MD MOLECULAR ORDERABL ES Performing Organization Address [facility] Co [...] Address [facility] Co de Phone Number EXTERNAL LAB documented in this encounter Visit Diagnoses Diagnosis Neutropenia, unspecified type documented in this encounter Care Teams Special Services Coordinator Relationship Specialty Start Date End Date Deborah Quiroga, MEDICAL INSURANCE COLLECTOR PCP - General Family Medicine 03/24/16 02/04/23 documented as of this encounter
--- OUTSIDE RECORDS SUMMARY | 2024-06-22 14:15 | XMS_ITS | Encounter Summary ---
[place] [address] Care Team Providers Care Coil Former Name Role Phone Deborah Quiroga APRN Primary Care Provider [phone] Reason for Visit * Reason Onset Date Comments Prior Authorization 09/11/2016 Neulasta Encounter Details Date Type Department Care Team (Late st Contact Info) Description 09/11/2016 Telephone Hematology [place] [address] Monica Wick Prior Authorization (Neulasta ) Social [...] AM EST Prior Auth for Neulasta (Approved) [facility] is a covered facility under the members plan. ID# [id number] Call placed to [phone] Rationale: Can you please start a PA for this pt to receive as outpatient at [facility] on 09/16/16? 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 ??Her last ANC was 0.56 (or 560) on 08/04/16. ??This will need to be approved through her medical as out patient. J code for neulasta. ?? [id number]. Spoke w/ Anna Marie Call Reference [id number] Copay: $ Deductible is not met, patient will have out of pocket costs until deductible is met. documented in this encounter Plan of Treatment Upcoming Encounters Date Type Department Care Team (Late st Contact Info) Description 06/23/2024 2:00 PM EST Office Visit Hematology and Oncology at [place] [phone] Markel Borjas MD [facility] DR HEMATOLOGY [place] [address] 11/02/2024 12:00 PM EDT Appointment Pulmonology at [address] 11/02/2024 1:00 PM EDT Office Visit Rheumatology at [place] [phone] Magdalena Peralta MD [facility] [place] [address] 03/01/2025 4:15 PM EDT Office Visit Dermatology at [address] [place] [address] Marek Bonilla MD [address], [place] [address] documented as of this encounter Visit Diagnoses Not on filedocumented in this encounter Care Teams Coil Former Relationship Specialty Start Date End Date Deborah Quiroga APRN PCP - General Family Medicine 03/24/16 02/04/23 documented as of this encounter
--- OUTSIDE RECORDS SUMMARY | 2024-06-22 14:15 | XMS_ITS | Encounter Summary ---
Author Organization [facility] [place] [address] Care Team Providers Care Watch Band Assembler Name Role Phone Deborah Quiroga APRN Primary Care Provider [phone] [phone] Encounter Details Date Type Department Care Team (Late st Contact Info) Description 08/18/2016 4:20 PM EST Clinical Support Same Day at [facility] [place] [address] Social History Tobacco Use Types Packs/Day Years [...] EST Office Visit [place]ematology [place] [address] Markel Borjas MD [facility] DR [place] [address] 11/02/2024 12:00 PM EDT Appointment Pulmonology at [place] [address] 11/02/2024 1:00 PM EDT Office Visit Rheumatology at [place] [phone] Magdalena Peralta MD [facility] [place] [address] 03/01/2025 4:15 PM EDT Office Visit Dermatology at [address] [place] [address] Marek Bonilla MD [address], [place] [address] documented as of this encounter Visit Diagnoses Not on filedocumented in this encounter Care Teams Watch Band Assembler Relationship Specialty Start Date End Date Deborah Quiroga APRN PCP - General Family Medicine 03/24/16 02/04/23 documented as of this encounter
--- OUTSIDE RECORDS SUMMARY | 2024-06-22 14:15 | XMS_ITS | Encounter Summary ---
Author Organization Formerly [facility] Address [facility] [place] [address] Care Team Providers Care Tapering Machine Operator Name Role Phone Deborah Quiroga APRN Primary Care Provider [phone] Reason for Visit * Reason Comments Schedule Office Case * Consultation (Routine) - Closed Specialty Diagnoses / Procedures Referred By Contac t Referred To Contact Hematology and Oncology Diagnoses Leukopenia Neutropenia LEUKOPENIA W/NEUTROPENIA Procedures TC PEGFILGRASTIM, 6MG, INJECTION LEUKOPENIA W/NEUTROPENIA Alirio Esparza MD [facility] CARDIOTHOR[place] [address] Mario Alberto Ramos Jr., MD [facility] DR HEMATOLOGY [place] [address] Referral ID Status Reason Start Date Expiration Date V isits Requested Visits Authorized [id number] Closed Consult, Test & Treat 07/17/2016 07/17/2017 1 1 Encounter Details Date Type Department Care Team (Late st Contact Info) Description 06/09/2016 3:00 PM EST Office Visit Hematology [place] [address] Mario Alberto Ramos Jr., MD [facility] [place] [address] Cyclical neutropenia Social History Tobacco Use Types [...] 06/09/2016 3:00 PM EST Hematology Outpatient Clinic [facility] Hematology Outpatient Consult Note CC: [...] Unknown See Comment Flow Cytometry Report Unknown [id number] ... HematoPathology: Flow Cytometry DIAGNOSIS 1. No [...] [place]ematology [place] [address] Markel Borjas MD [facility] DR HEMATOLOGY [place] [address] 11/02/2024 12:00 PM EDT Appointment [place] [phone] 11/02/2024 1:00 PM EDT Office [place] [address] Magdalena Peralta MD [facility] [place] [address] 03/01/2025 4:15 PM EDT Office Visit Dermatology at [place] [address] [place] [phone] Marek Bonilla MD [address] [place] [address] documented as of this encounter Procedures Procedure [...] (06/09/2016 4:53 PM EST) Flow Cytometry Report [id number] ?Location: The signing pathologist has (i) examined [...] high complexity clinical laboratory testing. SPECIMEN PROCESSING [id number] Cells for immunophenotypic analysis were derived from peripheral blood. ??CD45 vs side scatter gating was utilized to identify a lymphoid analysis region that comprises approximately 49-51% of all cells. The following markers were assessed: CD2, CD3, CD4, CD5, CD7, CD8, CD10, CD16, CD19, CD45, CD56, CD57, kappa light chain, and lambda light chain. CLINICAL INFORMATION 60 yo female with neutropenia. LGL panel requested. [facility] 06/09/2016 4:53 PM EST Mario Alberto Ramos Jr., MD PATHOLOGY/CYTOLOGY O RDERABLES Performing Organization Address City/[facility]/ZIP Co de Phone Number [facility] [place] [address] * Scan, Peripheral Blood (06/09/2016 4:53 PM EST) Pathologist [facility] Plat estimate Normal [facility] RBC Morphology Normal [facility] Blood specimen (specimen) 06/09/2016 4:53 PM EST 06/09/2016 5:00 PM EST Narrative Resulting Agency Comment Spec In Lab Mario Alberto Ramos Jr., MD HEMATOLOGY ORDERABLE S Performing Organization Address City/[facility]/ZIP Co de Phone Number [facility] [place] [address] * (ABNORMAL) Differential, Automated (06/09/2016 4:53 PM EST) Pathologist [facility] Neutrophil % 27.7 % [facility] Neutrophil Absolute 0.48(Crit ical) 1.70 - 6.10 x10(3)/ L [facility] Comment: Matches Previous Results.. This result has been called to NOT CALLED by Jesusita Argueta on 06 09 2016 at 1817, and has not been read back. MATCHES PREVIOUS RESULTS Lymph % 57.2 % [facility] Lymphocytes Abs 1.0 0.9 - 3.2 x10(3)/mc L [facility] Monocyte % 13.3 % [facility] Monocyte Abs 0.2(L) 0.3 - 0.9 x10(3)/ L [facility] Eos % 0.6 % [facility] Eosinophils Abs 0.0 0.0 - 0.4 x10(3)/[facility] Basophil % 1.2 % [facility] Baso Absolute 0.0 0.0 - 0.1 x10(3)/[facility] Immature Gran % 0.00 [...] Absolute 0.00 0.00 - 0.04 x10(3)/ L [facility] Blood specimen (specimen) 06/09/2016 4:53 PM EST 06/09/2016 5:00 PM EST Narrative Resulting Agency Comment Spec In Lab Mario Alberto Ramos Jr., MD HEMATOLOGY ORDERABLE S [facility] [place] [address] * (ABNORMAL) Hemogram (06/09/2016 4:53 PM EST) White Blood Cell 1.7(Criti gabrielle) 4.0 - 9.5 x10(3)/ L [facility] Red Blood Cell 3.92(L) 4.00 - 5.21 x10(6)/mc L [facility] Hemoglobin 12.4 11.7 - 15.5 gm/dL [facility] Hematocrit 36.7 35.7 - 45.8 % [facility] Mean Cell Volume 93.6 82.6 - 94.4 fL [facility] Mean Cell Hemoglobin 31.6 27.1 - 32.0 pg [facility] Mean Cell Hemoglobin Concentration 33.8 31.7 - 35.0 gm/dL [facility] Platelet 234 145 - 357 x10(3)/mc L [facility] RDW Standard Deviation 39.8 37.0 - 46.0 fL [facility] RDW coefficient of variation 11.8 11.5 - 14.1 % [facility] Mean Platelet Volume 8.6 7.6 - 12.9 fL [facility] NRBC% auto 0.0 % [facility] NRBC Absolute 0.000 0.000 - 0.000 x10(3)/mc L [facility] Blood specimen (specimen) 06/09/2016 4:53 PM EST 06/09/2016 5:00 PM EST Narrative Resulting Agency Comment Spec In Lab Mario Alberto Ramos Jr., MD HEMATOLOGY ORDERABLE S Performing Organization Address City/State/[facility] Co de Phone Number [facility] [place] [address] * Immunophenotyping Flow Cytometry (06/09/2016 4:53 PM EST) Immunophenotyping Flow See Comment [facility] Comment: When completed by the Pathologist, the Flow Cytometry Report ([id number]) will display under the Pathology Results section within [facility]. Specimen of unknown material (specimen) 06/09/2016 4:53 PM EST 06/09/2016 5:00 PM EST Narrative Resulting Agency Comment Spec In Lab Mario Alberto Ramos Jr., MD HEMATOLOGY ORDERABLE S [facility] [place] [address] documented in this encounter Visit Diagnoses Diagnosis Cyclical neutropenia Cyclic neutropenia documented in this encounter Care Teams Tapering Machine Operator Relationship Specialty Start Date End Date Deborah Quiroga, MODELING TEACHER PCP - General Family Medicine 03/24/16 02/04/23 documented as of this encounter
--- OUTSIDE RECORDS SUMMARY | 2024-06-22 14:15 | XMS_ITS | Encounter Summary ---
Author Organization Replaced By [facility] Address [facility] [place] [address] Care Team Providers Care Communications Electrician Supervisor Name Role Phone Ashley Quirogazac Shields APRN Primary Care Provider [phone] Encounter Details Date Type Department Care Team (Late st Contact Info) Description 07/03/2016 External Results Hematology [place] [phone] Matthew Cervantes, DO [address] [place] [phone] Social History Tobacco Use Types Packs/Day Years [...] Visit Hematology [place] [phone] Markel Borjas MD [facility] DR HEMATOLOGY [place] [address] 11/02/2024 12:00 PM EDT Appointment [place] [phone] 11/02/2024 1:00 PM EDT Office [place] [address] Magdalena Peralta MD [facility] DR [place] [address] 03/01/2025 4:15 PM EDT Office Visit Dermatology at [place] [address] [place] [phone] Marek Bonilla MD [address] [place] [address] documented as of this encounter Procedures Procedure Name Priority Date/Time Associated Diagnosis Comments BONE MARROW ASPIRATION PERFO RMED WITH BONE MARRROW BIOPSY Routine 06/28/2016 documented in this encounter Results * BONE MARROW ASPIRATION PREFORMED WITH BONE MARRROW BIOPSY (06/28/2016) Matthew Cervantes DO [facility] ORDERABLES documented in this encounter Visit Diagnoses Not on filedocumented in this encounter Care Teams Communications Electrician Supervisor Relationship Specialty Start Date End Date Deborah Quiroga APRN PCP - General Family Medicine 03/24/16 02/04/23 documented as of this encounter
--- OUTSIDE RECORDS SUMMARY | 2024-06-22 14:15 | XMS_ITS | Encounter Summary ---
Author Organization [facility] Address [facility] [place] [address] Care Team Providers Care Groundskeeping Maintenance Worker Name Role Phone Ashley Quirogazac Shields APRN Primary Care Provider [phone] Encounter Details Date Type Department Care Team (Latest Contact Info) Description 05/19/2016 11:20 AM EDT Laboratory Appointment Lab at [place] [phone] Nonrheumatic aortic valve stenosis Social History Tobacco [...] Visit Hematology and Oncology at [place] [phone] Markel Borjas MD [facility] [address] HEMATOLOGY [place] [address] 11/02/2024 12:00 PM EDT Appointment Pulmonology at [place] [phone] 11/02/2024 1:00 PM EDT Office Visit Rheumatology at [place] [phone] Magdalena Peralta MD [facility] [place] [address] 03/01/2025 4:15 PM EDT Office Visit Dermatology at [place] [address] [place] [phone] Marek Bonilla MD [address] [place] [address] documented as of this encounter Procedures Procedure [...] (05/19/2016 11:32 AM EDT) Plat estimate Normal [facility] RBC Morphology Normal [facility] Blood specimen (specimen) 05/19/2016 11:32 AM EDT 05/19/2016 11:41 AM EDT Narrative Resulting Agency Comment Spec In Lab Alirio Esparza MD HEMATOLOGY ORDERABL ES [facility] [place] [address] * (ABNORMAL) Differential, Automated (05/19/2016 11:32 AM [...] [facility] Monocyte % 13.0 % [facility] Monocyte Abs 0.2(L) 0.3 - 0.9 x10(3)/mc L [facility] Eos % 0.6 % [facility] Eosinophils Abs 0.0 0.0 - 0.4 x10(3)/mc L [facility] Basophil % 0.6 % [facility] [...] MD HEMATOLOGY ORDERABL ES Performing Organization Address City/[facility]/ZIP Co de Phone Number [facility] [place] [address] * (ABNORMAL) Hemogram (05/19/2016 11:32 AM EDT) White Blood Cell 1.6(Criti gabrielle) 4.0 - 9.5 x10(3)/mc L [facility] Comment: [...] Platelet Volume 8.4 7.6 - 12.9 fL [facility] NRBC% auto 0.0 % [facility] NRBC Absolute 0.000 0.000 - 0.000 x10(3)/mc L [facility] Blood specimen (specimen) 05/19/2016 11:32 AM EDT 05/19/2016 11:41 AM EDT Narrative Resulting Agency Comment Spec In Lab Alirio Esparza MD HEMATOLOGY ORDERABL ES [facility] [place] [address] * Antibody screen (05/19/2016 11:32 AM EDT) Ab Screen Interp Negative [facility] Expires at 2359 on: 07/03/2016 [facility] Comment: Corrected from 06/11/16 12:00 [Unknown] on 06/09/16 05:51 by Bethanie Tomlinson I.. Corrected from 07/03/16 12:00 [Unknown] on 05/21/16 06:00 by Shelia Barrera Blood specimen (specimen) 05/19/2016 11:32 AM EDT 05/19/2016 11:35 AM EDT Narrative Resulting Agency Comment Spec In Lab Alirio Esparza MD BLOOD BANK LAB BETH ALEJO Performing Organization Address City/[facility]/ZIP Co de Phone Number [facility] [place] [address] * ABO/Rh Typing (05/19/2016 11:32 AM EDT) Pathologist [facility] ABORH Type B Pos [facility] Blood specimen (specimen) 05/19/2016 11:32 AM EDT 05/19/2016 11:35 AM EDT Narrative Resulting Agency Comment Spec In Lab Alirio Esparza MD BLOOD BANK LAB BETH ALEJO [facility] [place] [address] * Basic Metabolic Panel (non-fasting) (05/19/2016 11:32 AM EDT) [facility] Glucose 86 65 - 199 mg/dL [...] the following links into your internet browser. [email or web address] Blood specimen (specimen) 05/19/2016 11:32 AM EDT 05/19/2016 11:41 AM EDT Narrative Resulting Agency Comment Spec In Lab Alirio Esparza MD CHEMISTRY ORDERABLE S [facility] [place] [address] documented in this encounter Visit Diagnoses Diagnosis Nonrheumatic aortic valve stenosis Aortic valve disorders documented in this encounter Care Teams Groundskeeping Maintenance Worker Relationship Specialty Start Date End Date Deborah Quiroga APRN PCP - General Family Medicine 03/24/16 02/04/23 documented as of this encounter
--- OUTSIDE RECORDS SUMMARY | 2024-06-22 14:15 | XMS_ITS | Encounter Summary ---
Author Organization Formerly [facility] Address [facility] [place] [address] Care Team Providers Care Carpet Repairer Name Role Phone Junaid, Deborah Shields APRN Primary Care Provider [phone] Reason for Visit * Auth/Cert Specialty Diagnoses / Procedures Referred By Crispin t Referred To Contact Diagnoses AVS Procedures CARDIAC CATHETERIZATION Referral ID Status Reason Start Date Expiration Date Visits Re quested Visits Authorized [id number] 1 1 Encounter Details Date Type Department Care Team (Late st Contact Info) Description 06/03/2016 6:32 AM EDT - 06/03/2016 1:10 PM EDT Hospital Encounter [place] [phone] Anjum Oliveros II, MD [facility] [address] Mario Alberto Escobedo MD [facility] [place] [address] Aortic valve stenosis, unspecified etiology; Nonrheumatic aortic [...] by your doctor, do not take any [id number] medicinesor herbal preparations without first discussing this with your doctor or pharmacist. There is the possibility of side effects and interactions when these are combined. Follow Up Care Who to call with questions or problems If there are any questions or problems that you think might be related to your cardiac cath or angioplasty, contact the well puller head tour production supervisor by calling [facility] at . * Patient Instructions* Felicia Corrigan - 06/03/2016 9:33 AM EDT Cardiology Instructions Call your doctor if: Chest pain, dyspnea, pain or swelling in legs occurs. If you have non-emergent questions between now and the time of your follow up appointments: -During 8am-5pm Wednesday through Wednesday call [phone] to speak with a nurse in the cardiology clinic -All other times call [phone] and ask to speak to the apartment property manager tour production supervisor. MEDICATIONS - restart your spironolactone, discontinue [...] Appointments: Primary care provider: Cardiology: Deborah Hahn, BRIQUETTE MOLDER [phone] Follow up as planned or as needed. Dr. Esparza [phone] Other follow-up appointment: Hematology - Dr. Mario [...] EST Office Visit Hematology [place] [phone] Markel Borjas MD [facility] [address] [place] [address] 11/02/2024 12:00 PM EDT Appointment [place] [phone] 11/02/2024 1:00 PM EDT Office [place] [phone] Magdalena Peralta MD [facility] [place] [address] 03/01/2025 4:15 PM EDT Office Visit Dermatology at [address] [place] [phone] Marek Bonilla MD [address] [place] [address] documented as of this encounter Procedures Procedure [...] Tube HOLD (06/03/2016 11:45 AM EDT) Pathologist [facility] Green Hold Sample in lab. [facility] Blood specimen (specimen) Venous Draw / Unknown 06/03/2016 11:45 AM EDT 06/03/2016 12:12 PM EDT Mario Alberto Escobedo MD CHEMISTRY ORDERABLES [facility] [place] [address] * Methylmalonic acid, serum (06/03/2016 11:45 AM EDT) Pathologist [facility] Methylmalonic Acid (NOVEMBER) 0.21 <=0.40 nmol/mL [facility] Comment: Test Performed by: [facility] [place] [id number] Property Management Intern: Raymond Chaudhry II, M.D., Ph.D. Blood specimen (specimen) 06/03/2016 11:45 AM EDT 06/03/2016 1:57 PM EDT Narrative Resulting Agency Comment Spec In Lab Mario Alberto Escobedo MD LAB SEND OUT ORDERAB LES Performing Organization Address [facility]/ZIP Co de Phone Number [facility] [place] [address] * Granulocyte Antibody (06/03/2016 11:45 AM EDT) Pathologist [facility] Granulocyte Ab (NOVEMBER) Negative Not Applicable [facility] Comment: ADDITIONAL INFORMATION Method: Immunofluorescent Assay Performing Laboratory CLIA# [id number] This test was developed and its performance characteristics determined by [facility] in a manner consistent with CLIA requirements. This test has not been cleared or approved by the U.S. Food and Drug Administration. Test Performed by: [facility] [place] [address] Property Management Intern: Raymond Chaudhry II, M.D., Ph.D. Blood specimen (specimen) 06/03/2016 11:45 AM EDT 06/03/2016 1:57 PM EDT Narrative Resulting Agency Comment Spec In Lab Mario Alberto Escobedo MD LAB SEND OUT ORDERAB LES Performing Organization Address City/[facility] Co de Phone Number [facility] [place] [address] * TSH (06/03/2016 11:45 AM EDT) Thyroid Stimulating Hormone 2.18 0.27 - 4.20 mcIU/mL [facility] Blood specimen (specimen) 06/03/2016 11:45 AM EDT 06/03/2016 12:11 PM EDT Narrative Resulting Agency Comment Spec In Lab Mario Alberto Escobedo MD CHEMISTRY ORDERABLES Performing Organization Address [facility]/ZIP Co de Phone Number [facility] [place] [address] * Homocysteine Total, Plasma (06/03/2016 11:45 AM EDT) Homocystine 9 <=15 mcmol/L [facility] Blood specimen (specimen) 06/03/2016 11:45 AM EDT 06/03/2016 12:11 PM EDT Narrative Resulting Agency Comment Spec In Lab Mario Alberto Escobedo MD CHEMISTRY ORDERABLES Performing Organization Address [facility] Co de Phone Number [facility] [place] [address] * Folate, serum (06/03/2016 11:45 AM EDT) Folate >20.0 4.8 - 24.2 ng/mL [facility] Blood specimen (specimen) 06/03/2016 11:45 AM EDT 06/03/2016 12:04 PM EDT Narrative Resulting Agency Comment Spec In Lab Mario Alberto Escobedo MD CHEMISTRY ORDERABLES Performing Organization Address [facility] Co de Phone Number [facility] [address] * (ABNORMAL) Sedimentation rate (06/03/2016 11:45 AM EDT) Sedimentation Rate Automated 41(H) 0 - 20 mm/hr [facility] Blood specimen (specimen) 06/03/2016 11:45 AM EDT 06/03/2016 12:04 PM EDT Narrative Resulting Agency Comment Spec In Lab Mario Alberto Escobedo MD HEMATOLOGY ORDERABLE S [facility] [place] [address] * Lactate Dehydrogenase (06/03/2016 11:45 AM EDT) Lactate Dehydrogenase 164 110 - 220 unit/L [facility] Blood specimen (specimen) 06/03/2016 11:45 AM EDT 06/03/2016 12:11 PM EDT Narrative Resulting Agency Comment Spec In Lab Mario Alberto Escobedo MD CHEMISTRY ORDERABLES [facility] [place] [address] * Comprehensive metabolic panel (non-fasting) (06/03/2016 11:45 [...] the following links into your internet browser. [email or web address] Blood specimen (specimen) 06/03/2016 11:45 AM EDT 06/03/2016 12:11 PM EDT Narrative Resulting Agency Comment Spec In Lab Mario Alberto Escobedo MD CHEMISTRY ORDERABLES [facility] [place] [address] documented in this encounter Visit Diagnoses Diagnosis [...] Hernandez) documented in this encounter Care Teams Carpet Repairer Relationship Specialty Start Date End Date Deborah Quiroga, BRIQUETTE MOLDER PCP - General Family Medicine 03/24/16 02/04/23 documented as of this encounter
--- OUTSIDE RECORDS SUMMARY | 2024-06-22 14:15 | XMS_ITS | Encounter Summary ---
Author Organization [facility] Address [facility] [place] [address] Care Team Providers Care Clinical Orthoptist Name Role Phone Junaid Deborah Shields APRN Primary Care Provider [phone] Encounter Details Date Type Department Care Team (Latest Contact Info) Description 05/19/2016 11:00 AM EDT Clinical [place] [phone] Nonrheumatic aortic valve stenosis Social History Tobacco [...] EST Office Visit Hematology [place] [address] Markel Borjas MD [facility] [address] [place] [address] 11/02/2024 12:00 PM EDT Appointment [place] [phone] 11/02/2024 1:00 PM EDT Office [place] [phone] Magdalena Peralta MD [facility] [place] [address] 03/01/2025 4:15 PM EDT Office Visit Dermatology at [address] [place] [address] Marek Bonilla MD [address] [place] [address] documented as of this encounter Procedures Procedure [...] (Bezet) 448 ms MUSE SYSTEM Calculated P [place] 37 degrees MUSE SYSTEM Calculated R [place] 31 degrees MUSE SYSTEM Calculated T [place] 25 degrees MUSE SYSTEM INTERPRETATION Normal sinus [...] Start Date End Date Deborah Quiroga, JAVA DEVELOPER ANALYST PCP - General Family Medicine 03/24/16 02/04/23 documented as of this encounter
--- OUTSIDE RECORDS SUMMARY | 2024-06-22 14:15 | XMS_ITS | Encounter Summary ---
[place] [address] Care Team Providers Care Salad Chef Name Role Phone Deborah Quiroga ANURAG Primary Care Provider [phone]- [phone] Reason for Visit * Reason Onset Date Comments Medical Care Coordination 07/31/2016 Encounter Details Date Type Department Care Team (Late st Contact Info) Description 07/31/2016 Telephone Hematology [place] [address] Alexandrea Greenwood RN Medical Care Coordination Social [...] 08/04/15 RN spoke with Aydee of the [facility] lab who states they can draw pt's cbc on 08/04/15, RN faxed lab req to [phone] at Aydee's request. RN instructed pt on Dr. Borjas's direction above. Pt verbalized understanding. documented in this encounter Plan of Treatment Upcoming Encounters Date Type Department Care Team (Late st Contact Info) Description 06/23/2024 2:00 PM EST Office Visit Hematology [place] [address] Markel Borjas MD [facility] [address] [place] [address] 11/02/2024 12:00 PM EDT Appointment Pulmonology at [place] [phone] 11/02/2024 1:00 PM EDT Office [place] [address] Magdalena Peralta MD [facility] [place] [address] 03/01/2025 4:15 PM EDT Office Visit Dermatology at [place] [address] [place] [address] Marek Bonilla MD [address], [place] DERMATOLOGY [place], [place] [phone] documented as of this encounter Visit Diagnoses Not on filedocumented in this encounter Care Teams Salad Chef Relationship Specialty Start Date End Date Deborah Quiroga APRN PCP - General Family Medicine 03/24/16 02/04/23 documented as of this encounter
--- OUTSIDE RECORDS SUMMARY | 2024-06-22 14:15 | XMS_ITS | Encounter Summary ---
Author Organization [facility] Address [facility] [address] Care Team Providers Care Sizing Sponger Name Role Phone Ashley Quirogan Cornelius ANURAG Primary Care Provider +1- [phone] Encounter Details Date Type Department Care Team (Late st Contact Info) Description 06/09/2016 Orders Only Hematology [place] [address] Nitesh Pina Jr., MD [facility] [address] [place] [address] Cyclical neutropenia Social History Tobacco Use Types [...] EST Office Visit Hematology [place] [address] Markel Borjas MD [facility] [address] [place] [address] 11/02/2024 12:00 PM EDT Appointment [place] [address] 11/02/2024 1:00 PM EDT Office [place] [address] Magdalena Peralta MD [facility] [place] [address] 03/01/2025 4:15 PM EDT Office Visit Dermatology at [place] [address] [place] [address] Marek Bonilla MD [address], [place] [address] documented as of this encounter Results * Immunophenotyping Flow Cytometry (06/09/2016 4:53 PM EST) Immunophenotyping Flow See Comment [facility] Comment: When completed by the Pathologist, the Flow Cytometry Report ([id number]) will display under the Pathology Results section within eD. Specimen of unknown material (specimen) 06/09/2016 4:53 PM EST 06/09/2016 5:00 PM EST Narrative Resulting Agency Comment Spec In Lab Nitesh Pina Jr., MD HEMATOLOGY ORDERABLE S [facility] [place] [address] documented in this encounter Visit Diagnoses Diagnosis Cyclical neutropenia Cyclic neutropenia documented in this encounter Care Teams Sizing Sponger Relationship Specialty Start Date End Date Deborah Quiroga APRN PCP - General Family Medicine 03/24/16 02/04/23 documented as of this encounter
--- OUTSIDE RECORDS SUMMARY | 2024-06-22 14:15 | XMS_ITS | Encounter Summary ---
Author Organization [facility] Address [facility] [place] [address] Care Team Providers Care Senior Operator Name Role Phone Junaid Deborah Shields APRN Primary Care Provider [phone]- [phone] Encounter Details Date Type Department Care Team (Latest Contact Info) Description 06/19/2016 - 06/19/2016 11:59 PM EST Hospital Encounter Radiology Library [place] [phone] Nitesh Pina Jr., MD [facility] [place] [address] Pain Discharge Disposition: Home Social History Tobacco [...] EST Office Visit Hematology [place] [address] Markel Borjas MD [facility] DR [place] [address] 11/02/2024 12:00 PM EDT [place]oint[place] [address] 11/02/2024 1:00 PM EDT Office Visit Rheumatology at [place] [phone] Magdalena Peralta MD [facility] [place] [address] 03/01/2025 4:15 PM EDT Office Visit Dermatology at [place] [address] [facility] [place] [address] Marek Bonilla MD [address], [place] [address] documented as of this encounter Procedures Procedure [...] Jr., MD IMG FILM LIBRARY ORD ERABLES [place], [place] documented in this encounter Visit Diagnoses Diagnosis Pain Generalized pain documented in this encounter Care Teams Senior Operator Relationship Specialty Start Date End Date Deborah Quiroga, DISTRICT PLANT SUPERVISOR PCP - General Family Medicine 03/24/16 02/04/23 documented as of this encounter
--- OUTSIDE RECORDS SUMMARY | 2024-06-22 14:15 | XMS_ITS | Encounter Summary ---
Author Organization [facility] [place] [address] Care Team Providers Care Palliative Care Physician Name Role Phone Ashley Quirogan Cornelius ANURAG Primary Care Provider [phone] Reason for Visit * Reason Onset Date Comments Pre Procedure Call 06/18/2016 Encounter Details Date Type Department Care Team (Late st Contact Info) Description 06/18/2016 Telephone Hematology [place] [address] Alexandrea Greenwood RN Pre Procedure [...] Visit Hemat[place] [address] Markel Borjas MD [facility] [address] [place] [address] 11/02/2024 12:00 PM EDT Appointment [place] [address] 11/02/2024 1:00 PM EDT Office [place] [address] Magdalena Peralta MD [facility] [place] [address] 03/01/2025 4:15 PM EDT Office Visit Dermatology at [place] [address] [place] [address] Marek Bonilla MD [address], [place] [address] documented as of this encounter Visit Diagnoses Not on filedocumented in this encounter Care Teams Palliative Care Physician Relationship Specialty Start Date End Date Deborah Quiroga APRN PCP - General Family Medicine 03/24/16 02/04/23 documented as of this encounter
--- OUTSIDE RECORDS SUMMARY | 2024-06-22 14:15 | XMS_ITS | Encounter Summary ---
Author Organization [facility] Address [facility] [place] [address] Care Team Providers Care Manager Cleaning Name Role Phone Ashley Quirogan Cornelius ANURAG Primary Care Provider [phone]- [phone] Encounter Details Date Type Department Care Team (Late st Contact Info) Description 06/16/2016 Orders Only [place] [address] Nitesh Pina Jr., MD [facility] DR [place] [address] Cyclical neutropenia Social History Tobacco Use Types [...] Visit [place] [address] Markel Borjas MD [facility] DR [place] [address] 11/02/2024 12:00 PM EDT Appoint[place] [address] 11/02/2024 1:00 PM EDT Office [place] [address] Magdalena Peralta MD [facility] [place] [address] 03/01/2025 4:15 PM EDT Office Visit Dermatology at [place] [address] [facility] [place] [address] Marek Bonilla MD [address], [place] [address] documented as of this encounter Visit Diagnoses Diagnosis Cyclical neutropenia Cyclic neutropenia documented in this encounter Care Teams Manager Cleaning Relationship Specialty Start Date End Date Deborah Quiroga APRN PCP - General Family Medicine 03/24/16 02/04/23 documented as of this encounter
--- OUTSIDE RECORDS SUMMARY | 2024-06-22 14:15 | XMS_ITS | Encounter Summary ---
Author Organization [facility] Address [place] [address] Care Team Providers Care Development Chemist Name Role Phone Junaid, Deborah Shields APRN Primary Care Provider [phone] Encounter Details Date Type Department Care Team (Late st Contact Info) Description 07/13/2016 External [place] [address] Provider, Scanning Social History Tobacco [...] Visit Hematology and Oncology at [place] [phone] Markel Borjas MD [facility] DR HEMATOLOGY [place] [address] 11/02/2024 12:00 PM EDT Appointment [place] [address] 11/02/2024 1:00 PM EDT Office Visit Rheumatology at [place] [phone] Magdalena Peralta MD [facility] [address] 03/01/2025 4:15 PM EDT Office Visit Dermatology at [place] [address] [place] [address] Marek Bonilla MD [address], [place] [address] documented as of this encounter Procedures Procedure Name Priority Date/Time Associated Diagnosis Comments SURGICAL PATHOLOGY SCAN Routine 07/13/2016 documented in this encounter Results * Scan Doc: Surgical Pathology (07/13/2016) Nitesh Pina Jr., MD MEDIA MGR SCAN EXT O RDR/RSLT documented in this encounter Visit Diagnoses Not on filedocumented in this encounter Care Teams Development Chemist Relationship Specialty Start Date End Date Deborah Quiroga APRN PCP - General Family Medicine 03/24/16 02/04/23 documented as of this encounter
--- OUTSIDE RECORDS SUMMARY | 2024-06-22 14:15 | XMS_ITS | Encounter Summary ---
Author Organization [facility] Address [facility] [place] [address] Care Team Providers Care Director Of Planning Name Role Phone Ashley Quirogan Cornelius ANURAG Primary Care Provider [phone] Encounter Details Date Type Department Care Team (Late st Contact Info) Description 08/11/2016 Telephone Hematology [place] [address] Markel Borjas MD [facility] DR [place] [address] Social History Tobacco Use Types Packs/Day Years [...] EST Office Visit Hematology and Oncology at [place] [phone] Markel Borjas MD [facility] [address] [place] [address] 11/02/2024 12:00 PM EDT Appointment [place] [address] 11/02/2024 1:00 PM EDT Office Visit Rheumatology at [place] [phone] Magdalena Peralta MD [facility] [place] [address] 03/01/2025 4:15 PM EDT Office Visit Dermatology at [place] [address] [facility] [place] [address] Marek Bonilla MD [address], [place] [address] documented as of this encounter Visit Diagnoses Not on filedocumented in this encounter Care Teams Director Of Planning Relationship Specialty Start Date End Date Deborah Quiroga APRN PCP - General Family Medicine 03/24/16 02/04/23 documented as of this encounter
--- OUTSIDE RECORDS SUMMARY | 2024-06-22 14:15 | XMS_ITS | Encounter Summary ---
Author Organization [facility] Address [facility] [place] [address] Care Team Providers Care Special Education Case Manager Name Role Phone Deborah Quiroga APRN Primary Care Provider [phone] Encounter Details Date Type Department Care Team (Latest Contact Info) Description 05/19/2016 11:52 AM EDT - 05/19/2016 11:59 PM EDT Hospital Encounter XRay at [address] [place] [address] Alirio Esparza MD Nonrheumatic aortic valve stenosis [...] Visit Hematology [place] [address] Markel Borjas MD [facility] [address] [place] [address] 11/02/2024 12:00 PM EDT Appoint[place] [address] 11/02/2024 1:00 PM EDT Office [place] [address] Magdalena Peralta MD [facility] [place] [address] 03/01/2025 4:15 PM EDT Office Visit Dermatology at [address] [place] [address] Marek Bonilla MD [address], [place] [address] documented as of this encounter Procedures Procedure [...] disorders documented in this encounter Care Teams Special Education Case Manager Relationship Specialty Start Date End Date Deborah Quiroga, ANURAG PCP - General Family Medicine 03/24/16 02/04/23 documented as of this encounter
--- OUTSIDE RECORDS SUMMARY | 2024-06-22 14:15 | XMS_ITS | Encounter Summary ---
Author Organization [facility] [place] [address] Care Team Providers Care Folding Machine Feeder Name Role Phone Ashley Quirogazac Shields APRN Primary Care Provider +1 [phone] Encounter Details Date Type Department Care Team (Late st Contact Info) Description 03/24/2016 Notes [place] [phone] Alfa Lua Social History Tobacco Use Types [...] assessments completed: Wadsworth Score: 6/6 IADL: 7/7 Shield Operator Strength Trials: 18.4, 15.0, 16.8 (right hand dominant) 5 meter walk test in seconds x3: 4.98, 4.88, 4.45 KCCQol: 98% Alfa Lua documented in this encounter Plan of Treatment Upcoming Encounters Date Type Department Care Team (Late st Contact Info) Description 06/23/2024 2:00 PM EST Office Visit Hematology [place] [address] Markel Borjas MD [facility] [address] [place] [address] 11/02/2024 12:00 PM EDT Appointment Pulmonology at [place] [address] 11/02/2024 1:00 PM EDT Office [place] [address] Magdalena Peralta MD [facility] [place] [address] 03/01/2025 4:15 PM EDT Office Visit Dermatology at [place] [address] [facility] [place] [address] Marek Bonilla MD [address], [place] [address] documented as of this encounter Visit Diagnoses Not on filedocumented in this encounter Care Teams Folding Machine Feeder Relationship Specialty Start Date End Date Deborah Quiroga APRN PCP - General Family Medicine 03/24/16 02/04/23 documented as of this encounter
--- OUTSIDE RECORDS SUMMARY | 2024-06-22 14:16 | XMS_ITS | Encounter Summary ---
Author Organization [facility] [place] [address] Care Team Providers Care Tennis Coach Name Role Phone Eitan Danni OSBORN Primary Care Provider Encounter Details Date Type Department Care Team (Late st Contact Info) Description 01/23/2014 9:25 AM EDT - 01/23/2014 10:25 AM EDT Surgery [place] [address] Alan Jacobson MD [facility] [address] CARDIAC CATHETERIZATION Social History Tobacco Use Types [...] by your doctor, do not take any zlmv-yor-fnqyijv medicines or herbal preparations without first discussing this with your doctor or pharmacist. There is the possibility of side effect and interactions when these are combined. Follow up Care Who to Call with Questions or Problems If there are any questions or problems that you think might be related to your cardiac cath or angioplasty, contact the jaw skinner entertainment production professional by calling [facility] at [...] 40 mg by mouth daily. 12/13/2013 03/24/2016 spironolactone (ALDACTONE) 25 mg tablet Take 12.5 mg by mouth daily. 01/17/2014 09/25/2016 documented as of this encounter Progress [...] Office Visit Hematology [place] [address] Markel Borjas MD [facility] [place] [address] 11/02/2024 12:00 PM EDT Appointment [place] [address] 11/02/2024 1:00 PM EDT Office [place] [address] Magdalena Peralta MD [facility] DR RHEUMATOLOGY DEPT [place], [place] [address] 03/01/2025 4:15 PM EDT Office Visit Dermatology at [place] [address] [facility] [place] [address] Marek Bonilla MD [address], [place] [address] documented as of this encounter Procedures Procedure Name Priority Date/Time Associated Diagnosis Comments ECHOCARDIOGRAM TRANSTHORACIC Routine 01/23/2014 3:17 PM EDT SOB (shortness of breath) documented in this encounter Results * Echocardiogram Transthoracic(Leb) (01/23/2014 3:17 PM EDT) EF 50 [employer] Anatomical Region Laterality Modality Other 01/23/2014 Narrative 01/23/2014 4:35 PM EDT Procedure: ? Transthoracic Echocardiogram Patient: ? ANDREW ONESIMO M ?(Age): 1955(58) Med Rec#: ?[id number] ? Sex: ?F ? Site Loc: ?[facility] ? Ht / Wt: ??158(cm)/93(kg) Pt. Loc: ? Adult Floor ?BSA: ?2.02 Study Date: ?01/23/2014 ? Pt. Type: Inpatient Tape: ? Referring: Lee Kincaid ([id number]) Referring: ANNALISA Seed Core Operator: Miguel Beverly Diagnosis:CPT Code(s): ??Echo Full (21332), ??Spectral Doppler (86680), Color Doppler (73307), Indication(s): ??Aortic stenosis Rhythm: Sinus HR ?BP [...] ? Mid-Inferior ?Hypokinetic ? Mid-Inferoseptal ?Hypokinetic ? Corrigan-Septal ? Hypokinetic ? Corrigan-Anterior ? Hypokinetic ? Corrigan-Lateral ?Hypokinetic ? Corrigan-Inferior ? Hypokinetic ? Corrigan-Tip ?Hypokinetic ? Chambers ?Value ?Units (Range) ? [...] Patient: ANDREW Mejias (Age): 1955(58) Med Rec#: [id number] Sex: F Site Loc: [facility] Ht / Wt: 158(cm)/93(kg) Pt. Loc: Adult Floor BSA: 2.02 Study Date: 01/23/2014 Pt. Type: Inpatient Tape: Referring: Lee Kincaid ([id number]) Referring: ANNALISA Seed Core Operator: Miguel Beverly Diagnosis:CPT Code(s): Echo Full (54094), Spectral Doppler (52131), Color Doppler (73111), Indication(s): Aortic stenosis Rhythm: Sinus HR BP [...] Hypokinetic Mid-Posterolateral Hypokinetic Mid-Inferior Hypokinetic Mid-Inferoseptal Hypokinetic Corrigan-Septal Hypokinetic Corrigan-Anterior Hypokinetic Corrigan-Lateral Hypokinetic Corrigan-Inferior Hypokinetic Corrigan-Tip Hypokinetic Chambers Value Units (Range) IVSd 2D [...] RN) documented in this encounter Care Teams Tennis Coach Relationship Specialty Start Date End Date Danni Laird APRN [address] [place] [address] PCP - General 01/23/14 11/11/14 documented as of this encounter
--- OUTSIDE RECORDS SUMMARY | 2024-06-22 14:16 | XMS_ITS | Encounter Summary ---
[place] [address] Care Team Providers Care Mobile Lounge Driver Or Operator Name Role Phone Mitchell Wilkes MD Primary Care Provider [phone] Reason for Visit * Reason Onset Date Comments Other 01/18/2014 Encounter Details Date Type Department Care Team (Late st Contact Info) Description 01/18/2014 Telephone Cardiology at [address] [address] Jesusita Garces Other Social History [...] EST Office Visit Hematology [place] [address] Markel Borjas MD [facility] DR HEMATOLOGY [place] [address] 11/02/2024 12:00 PM EDT Appointment Pulmonology at [place] [address] 11/02/2024 1:00 PM EDT Office Visit Rheumatology at [place] [phone] Magdalena Peralta MD [facility] [place] [address] 03/01/2025 4:15 PM EDT Office Visit Dermatology at [place] [address] [facility] [place] [address] Marek Bonilla MD [address], [place] [address] documented as of this encounter Visit Diagnoses Not on filedocumented in this encounter Care Teams Mobile Lounge Driver Or Operator Relationship Specialty Start Date End Date Mitchell Wilkes MD [facility] PCP - General 06/24/10 01/19/14 documented as of this encounter
--- OUTSIDE RECORDS SUMMARY | 2024-06-22 14:16 | XMS_ITS | Encounter Summary ---
Author Organization [facility] [place] [address] Care Team Providers Care Wrist Hemmer Name Role Phone Mitchell Wilkes MD Primary Care Provider [phone] Encounter Details Date Type Department Care Team (Late st Contact Info) Description 01/19/2014 Orders Only Cardiology at [address] [address] Chele Randolph PA [facility] DR CARDIOLOGY DEPT. [place], [place] [phone] Cardiomyopathy (Primary Dx) Social History Tobacco Use [...] EST Office Visit Hematology [place] [address] Markel Borjas MD [facility] DR HEMATOLOGY AND ONCOLOGY [place], [place] [address] 11/02/2024 12:00 PM EDT Appointment [place] [address] 11/02/2024 1:00 PM EDT Office [place] [address] Magdalena Peralta MD [facility] [place] [address] 03/01/2025 4:15 PM EDT Office Visit Dermatology at [place] [address] [place] [address] Marek Bonilla MD [address], [place] [address] documented as of this encounter Procedures Procedure [...] cardiomyopathies documented in this encounter Care Teams Wrist Hemmer Relationship Specialty Start Date End Date Mitchell Wilkes MD [facility] PCP - General 06/24/10 01/19/14 documented as of this encounter
--- OUTSIDE RECORDS SUMMARY | 2024-06-22 14:16 | XMS_ITS | Encounter Summary ---
Author Organization [facility] Address [facility] [place] [address] Care Team Providers Care Farm Marketer Name Role Phone Eitan Danni ANURAG Primary Care Provider Encounter Details Date Type Department Care Team (Latest Contact Info) Description 01/23/2014 7:45 AM EDT - 01/23/2014 5:50 PM EDT Hospital Encounter [place] [address] Alan Jacobson MD [facility] [place] [address] Cardiomyopathy; SOB (shortness of breath) Discharge Disposition: [...] by your doctor, do not take any amet-tne-bziguvp medicines or herbal preparations without first discussing this with your doctor or pharmacist. There is the possibility of side effect and interactions when these are combined. Follow up Care Who to Call with Questions or Problems If there are any questions or problems that you think might be related to your cardiac cath or angioplasty, contact the manufacturing area manager cone machine operator by calling [facility] at . documented in this encounter Medications [...] EST Office Visit Hematology [place] [phone] Markel Borjas MD [facility] [address] HEMATOLOGY [place] [address] 11/02/2024 12:00 PM EDT Appointment [place] [phone] 11/02/2024 1:00 PM EDT Office Visit Rheumatology at [place] [phone] Magdalena Peralta MD [facility] [address] [place] [address] 03/01/2025 4:15 PM EDT Office Visit Dermatology at [place] [address] [place] [address] Marek Bonilla MD [address] [facility] [place] [address] documented as of this encounter Procedures Procedure Name Priority Date/Time Associated Diagnosis Comments ECHOCARDIOGRAM TRANSTHORACIC Routine 01/23/2014 3:17 PM EDT SOB (shortness of breath) documented in this encounter Results * Echocardiogram Transthoracic(Leb) (01/23/2014 3:17 PM EDT) Pathologist [facility] EF 50 [employer] Anatomical Region Laterality Modality Other 01/23/2014 Narrative 01/23/2014 4:35 PM EDT Procedure: ? Transthoracic Echocardiogram Patient: ? ANDREW ONESIMO M ?(Age): 1955(58) Med Rec#: ?[id number] ? Sex: ?F ? Site Loc: ?[facility] ? Ht / Wt: ??158(cm)/93(kg) Pt. Loc: ? Adult Floor ?BSA: ?2.02 Study Date: ?01/23/2014 ? Pt. Type: Inpatient Tape: ? Referring: Lee Kincaid ([id number]) Referring: ANNALISA Industrial Designer: Miguel Beverly Diagnosis:CPT Code(s): ??Echo Full (69811), ??Spectral Doppler (08094), Color Doppler (18515), Indication(s): ??Aortic stenosis Rhythm: Sinus HR ?BP [...] ? Mid-Inferior ?Hypokinetic ? Mid-Inferoseptal ?Hypokinetic ? Franklin-Septal ? Hypokinetic ? Franklin-Anterior ? Hypokinetic ? Franklin-Lateral ?Hypokinetic ? Franklin-Inferior ? Hypokinetic ? Franklin-Tip ?Hypokinetic ? Chambers ?Value ?Units (Range) ? [...] 16:34:37 Images reviewed and interpretation verified [facility] Cardiac [facility]ound Laboratory Procedure Note Lee Kincaid MD - 01/23/2014 Procedure: Transthoracic Echocardiogram Patient: ANDREW Mejias (Age): 1955(58) Med Rec#: [id number] Sex: F Site Loc: [facility] Ht / Wt: 158(cm)/93(kg) Pt. Loc: Adult Floor BSA: 2.02 Study Date: 01/23/2014 Pt. Type: Inpatient Tape: Referring: Lee Kincaid ([id number]) Referring: ANNALISA Industrial Designer: Miguel Beverly Diagnosis:CPT Code(s): Echo Full (43924), Spectral Doppler (06107), Color Doppler (57405), Indication(s): Aortic stenosis Rhythm: Sinus HR BP [...] Hypokinetic Mid-Posterolateral Hypokinetic Mid-Inferior Hypokinetic Mid-Inferoseptal Hypokinetic Franklin-Septal Hypokinetic Franklin-Anterior Hypokinetic Franklin-Lateral Hypokinetic Franklin-Inferior Hypokinetic Franklin-Tip Hypokinetic Chambers Value Units (Range) IVSd 2D [...] 16:34:37 Images reviewed and interpretation verified [facility] Card[facility] Lee Kincaid MD ECHO [...] RN) documented in this encounter Care Teams Farm Marketer Relationship Specialty Start Date End Date Danni Laird APRN [address] [place] [address] PCP - General 01/23/14 11/11/14 documented as of this encounter
--- OUTSIDE RECORDS SUMMARY | 2024-06-22 14:16 | XMS_ITS | Encounter Summary ---
Author Organization [facility] [place] [address] Care Team Providers Care Curriculum And Instruction Specialist Name Role Phone Eitan Danni ANURAG Primary Care Provider [phone] Encounter Details Date Type Department Care Team (Late st Contact Info) Description 01/22/2014 Telephone Cardiology at [address] [phone] Cynthia Arrington LPN Social History Tobacco Use [...] Visit Hematology [place] [phone] Markel Borjas MD [facility] [address] [place] [address] 11/02/2024 12:00 PM EDT Appointment [place] [phone] 11/02/2024 1:00 PM EDT Office [place] [address] Magdalena Peralta MD [facility] [place] [address] 03/01/2025 4:15 PM EDT Office Visit Dermatology at [place] [address] [facility] [place] [address] Marek Bonilla MD [address] DERMATOLOGY [place], [place] [phone] documented as of this encounter Visit Diagnoses Not on filedocumented in this encounter Care Teams Curriculum And Instruction Specialist Relationship Specialty Start Date End Date Danni Laird APRN [address] [place] [address] PCP - General 01/23/14 11/11/14 documented as of this encounter
--- OUTSIDE RECORDS SUMMARY | 2024-06-27 15:16 | XMS_ITS | Encounter Summary ---
Author Organization [facility] Address [address] [place] [address] Care Team Providers Care It Application Administrator Name Role Phone Ashley Chavez Primary Care Provider [phone] Encounter Details Date Type Department Care Team (Late st Contact Info) Description 10/30/2022 Lab Requisition [facility] Pathology & Laboratory Medicine - [address] [address] Outr Resulting Lab, Provider Social History Tobacco [...] Stranded) <12.3 <30.0 IU/mL 11/03/2022 13:08 EDT [facility] Comment: ? Negative: ??<30.0 IU/mL ? Borderline Positive: ??30.0 - 75.0 IU/mL ? Positive: ??>75.0 IU/mL Results were obtained with the [employer] QUANTA Lite dsDNA SC DOMO assay on the [employer] DSX. Blood VENOUS BLOOD / Unknown 10/29/2022 14:00 EDT 10/30/2022 19:27 EDT Provider Outr Resulting Lab IMMUNOLOGY AND SEROL OGY ORDERABLES Final Result Performing Organization Address [facility] de Phone Number [facility] [address] [place] [address] * SM (MORENO) ANTIBODY (10/29/2022 14:00 EDT) SM (Moreno) Antibody 18.5 <20.0 Units 11/03/2022 14:26 EDT [facility] Comment: ? Negative: <20.0 Units [...] OGY ORDERABLES Final Result Performing Organization Address [facility] de Phone Number [facility] [address] [place] [address] documented in this encounter Visit Diagnoses Not on filedocumented in this encounter Care Teams It Application Administrator Relationship Specialty Start Date End Date Ashley Chavez ARNP [address] [place] [address] PCP - General 07/11/10 documented as of this encounter
--- OUTSIDE RECORDS SUMMARY | 2024-06-27 15:16 | XMS_ITS | Encounter Summary ---
Author Organization [facility] Address [address] [place] [address] Care Team Providers Care Hospital Tray Service Worker Name Role Phone Scott Ashley WILLIAM Primary Care Provider [phone] Encounter Details Date Type Department Care Team (Late st Contact Info) Description 03/22/2024 Lab Requisition [facility] Pathology & Laboratory Medicine - [address] [address] Consuelo Guerrero, DO [address] [place], [place] [address] Diaphragmatic hernia without obstruction or gangrene; Anemia, [...] explore management options, if applicable. 03/24/2024 10:36 [facility] Final Diagnosis A. JEJUNUM, [...] - Deeper sections x3 examined. 03/24/2024 10:36 [facility] Attestation There was significant resident/fellow involvement in the diagnostic evaluation of this case. By the signature below, the attending physician certifies that they have personally conducted a gross and/or microscopic examination of the described specimens and rendered or confirmed the above diagnosis. 03/24/2024 10:36 [facility] at [address] Clinical History Anemia, hiatal hernia, 38 cm aguayo diverticulosis 03/24/2024 10:36 [facility] Gross Description A. Received [...] Bragg DO 03/24/2024 10:36 T [facility] Performing Lab [facility] 10:36 T [facility] Scanned Images 03/24/2024 10:36 T [facility] Tissue [...] PATHOLOGY ORDERABLES Final Re sult [facility] [address] [place] [address] documented in this encounter Visit Diagnoses Diagnosis Diaphragmatic hernia without obstruction or gangrene Diaphragmatic hernia without mention of obstruction or gangrene Anemia, unspecified documented in this encounter Care Teams Hospital Tray Service Worker Relationship Specialty Start Date End Date Ashley Chavez ARNP [address] [place] [address] PCP - General 07/11/10 documented as of this encounter
--- OUTSIDE RECORDS SUMMARY | 2024-06-27 15:16 | XMS_ITS | Encounter Summary ---
Author Organization [facility] Address [address] [place] [address] Care Team Providers Care Photostat Operator Helper Name Role Phone Unavailable Primary Care Provider Unavailabl e Encounter Details Date Type Department Care Team (Late st Contact Info) Description 04/20/2005 Results Only [facility] - Maple conversion [address] [place] [address] Ziggy Valiente MD [address] [place] [address] Social History Tobacco Use Types Packs/Day [...] ? 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 Accession #: ? [id number] ? : ? 1955 (Age: 49) ??F [...] correlation with endoscopic appearance is recommended. (Dr. Chino)/[facility] Document reviewed and electronically signed [...] entirely submitted in one cassette. ??(Arabella Santos)/[facility] End of Report PAUL ARELLANO 04/20/2005 04/21/2005 15: 04 EDT us Ziggy aVliente MD PATHOLOGY ORDERABLES Final Resul t [facility] [address] [place] [address] documented in this encounter Visit Diagnoses Not on filedocumented in this encounter
--- OUTSIDE RECORDS SUMMARY | 2024-06-27 15:16 | XMS_ITS | Encounter Summary ---
Author Organization [facility] Address [address] [place] [address] Care Team Providers Care Nursing Education Consultant Name Role Phone Scott, Ashley WILLIAM Primary Care Provider [phone] Encounter Details Date Type Department Care Team (Late st Contact Info) Description 12/23/2016 Results Only [facility] [phone] Deborah Quiroga, WINDOW SHADE INSTALLER [address] [place] [phone] Social History Tobacco Use Types Packs/Day [...] ? PURNIMA THACKER ? Accession #: ? [id number] ? : ? 1955 (Age: 61) ??F ?Collect Date: ? 12/23/2016 ? Location: ? [facility] ? Receive Date: ? 12/25/2016 ? Provider: DEBORAH QUIROGA GASATERIA ATTENDANT Copy to: ? Final Report SPECIMEN ADEQUACY ? Satisfactory for Evaluation - transformation zone component present GENERAL CATEGORIZATION ? Negative for Intraepithelial Lesion or Malignancy ?? Last Menstrual Period: years Specimen/Source: ??Pap Test, Cervix, ThinPrep Imaging System with manual evaluation Document reviewed and electronically signed by: ? Monica Cason, [facility](ASCP) ? Report ??Date: 01/06/2017 09:11 HPV with Pap Test ? Date Ordered: ? 01/06/2017 ? Status: ?? Signed Out ?Date Complete: ? 01/07/2017 ? By: ??System Interface ? Date Reported: ? 01/07/2017 ? Interpretation RESULT: Negative for HPV. No E6 or E7 mRNA is detected from HPV types 16,18,31,33,35, 39,45,51,52,56,58, 59,66, and 68 by brim ironer hand mediated amplification. Comments Document reviewed and electronically signed by: ? System Interface ? Report date: 01/07/2017 By the signature above, the attending physician certifies that he/she has personally conducted a gross and/or microscopic examination of the described specimens and rendered or confirmed the above diagnosis. End of Report [facility] 12/23/2016 12/25/2016 us Deborah Quiroga WINDOW SHADE INSTALLER PATHOLOGY ORDERABLES Final Re sult [facility] [address] [place] [address] documented in this encounter Visit Diagnoses Not on filedocumented in this encounter Care Teams Nursing Education Consultant Relationship Specialty Start Date End Date Ashley Chavez ARNP [address] [place] [address] PCP - General 07/11/10 documented as of this encounter
--- OUTSIDE RECORDS SUMMARY | 2024-06-27 15:16 | XMS_ITS | Encounter Summary ---
Author Organization [facility] Address [address] [place] [address] Care Team Providers Care Lpn Name Role Phone Unavailable Primary Care Provider Unavailabl e Encounter Details Date Type Department Care Team (Late st Contact Info) Description 03/24/2007 11:06 EDT - 03/24/2007 11:59 EDT Hospital Encounter [facility] - Other [address] [place] [address] Ashley Chavez ARNP [address] [place] [address] Discharge Disposition: Home or Self Care Social [...]
--- OUTSIDE RECORDS SUMMARY | 2024-06-27 15:16 | XMS_ITS | Referral Summary ---
Author Organization [facility] Address [address] [place] [address] Care Team Providers Care Police Specialist Name Role Phone Ashley Chavez Primary Care Provider [phone] Social History Tobacco Use Types Packs/Day Years [...] of Treatment Not on file Insurance MEDICARE [facility] Care Teams Police Specialist Relationship Specialty Start Date End Date Ashley Chavez ARNP [address] [place] [address] PCP - General 07/11/10
--- OUTSIDE RECORDS SUMMARY | 2024-06-27 15:16 | XMS_ITS | Encounter Summary ---
Author Organization [facility] Address [address] [place] [address] Care Team Providers Care Senior Ios Developer Name Role Phone Ashley Chavez Primary Care Provider [phone] Encounter Details Date Type Department Care Team (Late st Contact Info) Description 04/29/2022 Lab Requisition [facility] Pathology & Laboratory Medicine - [address] [address] Outr Resulting Lab, Provider Social History Tobacco [...] Antibody 1.6 <20.0 Units 04/30/2022 12:23 EDT [facility] Comment: ? Negative: <20.0 [...] OGY ORDERABLES Final Result Performing Organization Address [facility] de Phone Number [facility] [address] [place] [address] * SSA ANTIBODIES BY DOMO (04/29/2022 7:51 EDT) SSA Antibody 1.5 <20.0 Units 04/30/2022 12:22 EDT [facility] Comment: ? Negative: <20.0 [...] OGY ORDERABLES Final Result Performing Organization Address [facility] de Phone Number [facility] [address] [place] [address] documented in this encounter Visit Diagnoses Not on filedocumented in this encounter Care Teams Senior Ios Developer Relationship Specialty Start Date End Date Ashley Chavez ARNP [address] [place] [address] PCP - General 07/11/10 documented as of this encounter
--- OUTSIDE RECORDS SUMMARY | 2024-06-27 15:16 | XMS_ITS | Encounter Summary ---
Author Organization [facility] Address [address] [place] [address] Care Team Providers Care Adjunct Communications Faculty Member Name Role Phone Ashley Chavez Primary Care Provider [phone] Encounter Details Date Type Department Care Team (Late st Contact Info) Description 01/07/[address] [facility] Pathology & Laboratory Medicine - [address] [address] Outr Resulting Lab, Provider Social History Tobacco [...] S ORDERABLES Final Result Performing Organization Address [facility] de Phone Number [facility] [address] [place] [address] * PROTEIN, TOTAL (01/06/2023 14:40 EDT) Blood VENOUS BLOOD / Unknown 01/06/2023 14:40 EDT 01/07/2023 17:37 EDT us Provider Outr Resulting Lab CHEMISTRY & BLOOD GA S ORDERABLES Final Result Performing Organization Address [facility] de Phone Number [facility] [address] [place] [address] * (ABNORMAL) EXTRACTABLE NUCLEAR ANTIGEN PANEL (01/06/2023 14:40 EDT) SSA Antibody 1.3 <20.0 Units 01/08/2023 15:42 EDT [facility] Comment: ? Negative: <20.0 Units ? Weak Positive: 20.0 - 39.9 Units ? Moderate Positive: 40.0 - 80.0 Units ? Strong Positive: >80.0 Units Results were obtained with the [employer] QUANTA Lite SS-A DOMO. ??SS-A values obtained [...] >80.0 Units Results were obtained with the [employer] QUANTA Lite SS-B DOMO. ??SS-B values obtained [...] cannot be correlated to an endpoint titer. GROUNDS AND NURSERY SPECIALIST Antibody 149.1(H) <20.0 Units 01/08/2023 15:42 [facility] Comment: ? Negative: <20.0 Units ? Weak Positive: 20.0 - 39.9 Units ? Moderate Positive: 40.0 - 80.0 Units ? Strong Positive: >80.0 Units Results were obtained with the [employer] Quanta Lite GROUNDS AND NURSERY SPECIALIST DOMO. GROUNDS AND NURSERY SPECIALIST values obtained with different staff assistant's assay methods may not be used interchangeaby. ??The magnitude of the reported IgG levels cannot be be correlated to an endpoint titer. A positive result in the [employer] Lite GROUNDS AND NURSERY SPECIALIST DOMO indicates the presence of antibodies reactive with the GROUNDS AND NURSERY SPECIALIST/Sm complex but cannot distinguish between anti-Sm and anti-GROUNDS AND NURSERY SPECIALIST activity. Blood VENOUS BLOOD / Unknown 01/06/2023 14:40 EDT 01/07/2023 17:37 EDT us Provider Outr Resulting Lab IMMUNOLOGY AND SEROL OGY ORDERABLES Final Result [facility] [address] [place] [address] * (ABNORMAL) ANTI NUCLEAR AB (FRANCISCO), IFA [...] IMMUNOLOGY AND SEROL OGY ORDERABLES Final Result [facility] [address] [place] [address] documented in this encounter Visit Diagnoses Not on filedocumented in this encounter Care Teams Adjunct Communications Faculty Member Relationship Specialty Start Date End Date Ashley Chavez ARNP [address] [place] [address] PCP - General 07/11/10 documented as of this encounter
--- OUTSIDE RECORDS SUMMARY | 2024-06-27 15:16 | XMS_ITS | Clinical Summary ---
Author Organization [facility] Address [address] [place] [address] Care Team Providers Care Motor Coach Operator Name Role Phone Ashley Chavez Primary Care Provider [phone] Social History Tobacco Use Types Packs/Day Years [...] 75+ series) 2030 Insurance MEDICARE [employer] [place] Care Teams Motor Coach Operator Relationship Specialty Start Date End Date Ashley Chavez ARNP [address] [place], [place] [id number] PCP - General 07/11/10
--- OUTSIDE RECORDS SUMMARY | 2024-06-27 15:16 | XMS_ITS | Encounter Summary ---
Author Organization [facility] Address [address] [place] [address] Care Team Providers Care Immigration Inspector Name Role Phone Scott, Ashley WILLIAM Primary Care Provider [phone] Encounter Details Date Type Department Care Team (Late st Contact Info) Description 06/23/2016 Results Only [facility] [phone] Matthew Acevedo, DO [address] [address] Social History Tobacco Use Types [...] ? PURNIMA THACKER ? Accession #: ? [id number] : ? 1955 (Age: 60) ??F ?Collect Date: ? 06/23/2016 Location: ? [facility] ? Receive Date: ? 06/24/2016 Provider: ? MATTHEW ACEVEDO DO Copy to: ?WINTER HANKINS CODING SPECIALIST MARIO ALBERTO GATES MD ? INTERPRETATION: Normal [...] ??400 ?? KARYOTYPE: 46,XX[25] End of Report [facility] 06/23/2016 06/24/2016 Matthew Acevedo DO PATHOLOGY ORDERABLES Fi nal Result [facility] [address] [place] [address] * FLOW CYTOMETRY (06/23/2016 0:00 EST) Pathology Report: FLOW CYTOMETRY REPORT Reports generated via electronic interface contain original data; however they are lacking the format of the original report. Caution should be taken when reading/interpreting unformatted reports. Name: ? PURNIMA THACKER ? Accession #: ? [id number] : ? 1955 (Age: 60) ??F ?Collect Date: ? 06/23/2016 00:00 Location: ? [facility] ? Receive Date: ? 06/24/2016 08:00 Provider: ?MATTHEW KRISTINA DO Copy to: ?WINTER HANKINS CODING SPECIALIST MARIO ALBERTO RAMOS MD ? FINAL IMMUNOPHENOTYPIC INTERPRETATION: ? Bone marrow, flow cytometric analysis: -No immunophenotypic evidence of a clonal cell population. ??See comment. ? COMMENT: The results of flow cytometry show no immunophenotypic evidence of involvement by a clonal lymphoproliferative or myeloproliferative disorder. ??Correlation of these findings with morphologic and clinical data is essential. ??Please refer to pathology report number [id number] for morphologic details. ? Document reviewed and [...] the Department of Pathology and Laboratory Medicine, [place], [place] ??It has not been cleared or [...] clinical laboratory testing. End of Report ?? [facility] 06/23/2016 06/24/2016 8:0 0 EST Matthew Acevedo DO PATHOLOGY ORDERABLES Fi nal Result Performing Organization Address City/State/[facility] Co de Phone Number [facility] [address] [place] [address] * BONE MARROW/HEMPATH CONSULT (06/23/2016 0:00 EST) Pathology Report: BONE MARROW REPORT Reports generated via electronic interface contain original data; however they are lacking the format of the original report. Caution should be taken when reading/interpreting unformatted reports. Name: ? ANDREW PURNIMA Magalie ? Accession #: ? [id number] : ? 1955 (Age: 60) ??F ?Collect Date: ? 06/23/2016 Location: ? [facility] ? Receive Date: ? 06/24/2016 Provider: ? MATTHEW ACEVEDO DO Copy to: ?WINTER HANKINS CODING SPECIALIST MARIO ALBERTO RAMOS MD ? DIAGNOSIS: [...] #1: Aggregate biopsy length: 8 mm with driver sales trabeculae of lamellar bone, cellular bone marrow, [...] SEE ABOVE DISCUSSION Lambda (polyclonal, Dako) ??(B1): [place] (polyclonal, Dako) ??(B1): Biopsy (decalcified) #2: Aggregate biopsy length: 8 mm with driver sales trabeculae of lamellar bone, cellular bone marrow, [...] (M115, Leica) ??(B2): Lambda (polyclonal, Dako) ??(B2): [place] (polyclonal, Dako) ??(B2): NOTE: ??One or more [...] performance characteristics have been determined by [facility]. ??The positive and negative controls [...] ? 1% Blasts ?1% Special Studies Cytogenetics ([id number]): Pending. Flow Cytometry ([id number]): No immunophenotypic evidence of a clonal cell population. ? End of Report [facility] 06/23/2016 06/24/2016 us Matthew Acevedo DO PATHOLOGY ORDERABLES Fi nal Result [facility] [address] [place] [address] documented in this encounter Visit Diagnoses Not on filedocumented in this encounter Care Teams Immigration Inspector Relationship Specialty Start Date End Date Ashley Chavez ARNP [address] [place] [address] PCP - General 07/11/10 documented as of this encounter
--- OUTSIDE RECORDS SUMMARY | 2024-06-27 15:16 | XMS_ITS | Encounter Summary ---
Author Organization [facility] Address [address] [place] [address] Care Team Providers Care Bottoming Room Inspector Name Role Phone Scott, Ashley WILLIAM Primary Care Provider [phone] Encounter Details Date Type Department Care Team (Late st Contact Info) Description 05/12/2019 Results Only [facility] [phone] Nadira Gregorio MD [address] [place] [phone] Social History Tobacco Use Types Packs/Day [...] ? PURNIMA THACKER ? Accession #: ? [id number] ? : ? 1955 (Age: 63) ??F ? Collect Date: ? 05/12/2019 ? Location: ? [facility] ? Receive Date: ? 05/12/2019 ? Provider: NADIRA GREGORIO MD Copy to: WINTER HANKINS SUPERVISOR PIPE FINISHING ? Final Pathologic Diagnosis: COLON, CECUM, POLYP, [...] (ASCP) 05/12/2019 6:08 PM End of Report [facility] 05/12/2019 16:0 3 EDT 05/12/2019 16:03 EDT us Nadira Gregorio MD PATHOLOGY ORDERABLES Final Resul t [facility] [address] [place] [address] documented in this encounter Visit Diagnoses Not on filedocumented in this encounter Care Teams Bottoming Room Inspector Relationship Specialty Start Date End Date Ashley Chavez ARNP [address] [place] [address] PCP - General 12/10/10 documented as of this encounter
--- OUTSIDE RECORDS SUMMARY | 2024-06-27 15:16 | XMS_ITS | Encounter Summary ---
Author Organization [facility] Address [address] [place] [address] Care Team Providers Care Material Requisitioner Name Role Phone Ashley Chavez Primary Care Provider [phone] Encounter Details Date Type Department Care Team (Latest Contact Info) Description 05/12/2019 13:18 EDT - 05/12/2019 23:59 EDT Hospital Encounter [address] [address] Unknown, Provider, MD Discharge Disposition: Home or [...] filedocumented in this encounter Care Teams Material Requisitioner Relationship Specialty Start Date End Date Ashley Chavez ARNP [address] [place] [address] PCP - General 07/11/10 documented as of this encounter
--- OUTSIDE RECORDS SUMMARY | 2024-06-27 15:16 | XMS_ITS | Encounter Summary ---
Author Organization [facility] Address [address] [place] [address] Care Team Providers Care Box Truck Owner Operator Name Role Phone Ashley Chavez Primary Care Provider [phone] Encounter Details Date Type Department Care Team (Late st Contact Info) Description 05/12/2022 Lab Requisition [facility] Pathology & Laboratory Medicine - [address] [id number] Outr Resulting Lab, Provider Social History Tobacco [...] 14:32 EDT) Hold Hold 05/12/2022 22:[address] [facility] Blood VENOUS BLOOD / Unknown 05/12/2022 14:32 EDT 05/12/2022 21:40 EDT us Provider Outr Resulting Lab LAB INFO SERVICE AND SUPPORT & PHONE RESULT Final Result Performing Organization Address [facility] Co de Phone Number [facility] [address] [place] [address] * (ABNORMAL) HOMOCYSTEINE (05/12/2022 14:32 EDT) Homocysteine 14.7(H) 5.0 - 13.9 umol/L 05/13/2022 9:[address] [facility] Comment:Results may be false ly elevated if sample is not collected on ice or is not removed from cells within 1 hour of collection. Blood VENOUS BLOOD / Unknown 05/12/2022 14:32 EDT 05/12/2022 21:[address] [facility] - 05/13/2022 9:05 EDT [...] S ORDERABLES Final Result Performing Organization Address [facility] Co de Phone Number [facility] [address] [place] [address] * HAPTOGLOBIN (05/12/2022 14:32 EDT) Haptoglobin 138 32 - 197 mg/dL 05/13/2022 9:[address] [facility] Blood VENOUS BLOOD / Unknown 05/12/2022 14:32 EDT 05/12/2022 21:36 EDT us Provider Outr Resulting Lab CHEMISTRY & BLOOD GA S ORDERABLES Final Result Performing Organization Address [facility]/State/ZIP Co de Phone Number [facility] [address] [place] [address] * (ABNORMAL) ANTI NUCLEAR AB (FRANCISCO), IFA (05/12/2022 14:32 EDT) FRANCISCO Interpretation Positive(A) Negative 05/13/2022 14:[address] [facility] Comment: Result is equal to or greater than 1:5120. For titers greater than or equal to 1:160 (except the centromere, nucleolar, and dense fine speckled patterns) it is recommended that specific, follow-up autoantibody testing (such as for dsDNA and Extractable Nuclear Antigens) be performed on all diffuse and/or speckled patterns. FRANCISCO Titer and Pattern 1 1:5120 Speckled 05/13/2022 14:[address] [facility] Blood VENOUS BLOOD / Unknown 05/12/2022 14:32 EDT 05/12/2022 21:[address] [facility] - 05/13/2022 14:44 EDT Results were obtained with the INOVA NOVA Lite HEp-2 FRANCISCO Kit by indirect immunofluorescence. us Provider Outr Resulting Lab IMMUNOLOGY AND SEROL OGY ORDERABLES Final Result [facility] [address] [place] [address] documented in this encounter Visit Diagnoses Not on filedocumented in this encounter Care Teams Box Truck Owner Operator Relationship Specialty Start Date End Date Ashley Chavez ARNP [facility] [place] [address] PCP - General 07/11/10 documented as of this encounter
--- OUTSIDE RECORDS SUMMARY | 2024-06-27 15:16 | XMS_ITS | Encounter Summary ---
Author Organization [facility] Address [address] [place] [address] Care Team Providers Care Ring Striker Name Role Phone Unavailable Primary Care Provider Unavailabl e Encounter Details Date Type Department Care Team (Late st Contact Info) Description 03/24/[address] [facility] Non-Invasive Cardiology - [facility] [address] [place], [place] [address] Ashley Chavez, WILLIAM [address] [place] [address] Social History Tobacco Use Types Packs/Day Years [...] ? PURNIMA THACKER ? Accession #: ? [id number] : ? 1955 (Age: 51) ??F ?Collect Date: ? 03/24/2007 Location: ? [facility] ? Receive Date: ? 03/28/2007 Provider: ?ASHLEY THOMAS Copy to: ? Specimen/Source: ?ThinPrep Pap Test, Endocervix, processed on Loot! ThinPrep Imaging System, with manual evaluation Last [...] ORDERABLES Final Res ult PAUL ARELLANO [address] [place] [address] documented in this encounter Visit Diagnoses Not on filedocumented in this encounter
--- OUTSIDE RECORDS SUMMARY | 2024-06-27 15:16 | XMS_ITS | Encounter Summary ---
Author Organization [facility] Address [address] [place] [address] Care Team Providers Care Mold Sander Name Role Phone Unavailable Primary Care Provider Unavailabl e Encounter Details Date Type Department Care Team (Late st Contact Info) Description 07/08/2010 10:55 EST - 07/08/2010 10:[address] [facility] - Other [address] [place] [address] Ashley Chavez, WILLIAM [address] [place] [address] Discharge Disposition: Home or Self Care Social [...]
--- OUTSIDE RECORDS SUMMARY | 2024-06-27 15:16 | XMS_ITS | Encounter Summary ---
Author Organization [facility] Address [address] [place] [address] Care Team Providers Care Security Shift Manager Name Role Phone Unavailable Primary Care Provider Unavailabl e Encounter Details Date Type Department Care Team (Late st Contact Info) Description 06/29/2007 Results Only [facility] - Maple conversion [address] [place] [address] Sánchez Acevedo MD [address] [place] [address] Social History Tobacco Use Types Packs/Day Years [...] ? PURNIMA THACKER ? Accession #: ? [id number] ? : ? 1955 (Age: 51) ??F [...] covered by a smooth white serosa. ??Three logistics service representative sections of the gallbladder are submitted in one cassette. ??(Sriram Scott)/[facility] End of Report [facility]UL [facility]IO [facility] 06/29/2007 06/29/2007 21: 23 EST us Sánchez Acevedo MD PATHOLOGY ORDERABLES Final Result Performing Organization Address City/State/[facility] Co de Phone Number PAUL [address] [address] documented in this encounter Visit Diagnoses Not on filedocumented in this encounter
--- OUTSIDE RECORDS SUMMARY | 2024-06-27 15:16 | XMS_ITS | Encounter Summary ---
Author Organization [facility] Address [address] [place] [address] Care Team Providers Care Middle School Art Teacher Name Role Phone Ashley Chavez Primary Care Provider [phone] Encounter Details Date Type Department Care Team (Late st Contact Info) Description 03/21/2024 Lab Requisition [facility] Pathology & Laboratory Medicine - [address] [address] Outr Resulting Lab, Provider Social History Tobacco [...] 197 mg/dL 03/22/2024 10:25 EDT [facility] Blood VENOUS BLOOD / Unknown 03/21/2024 13:00 EDT 03/21/2024 21:50 EDT us Provider Outr Resulting Lab CHEMISTRY & BLOOD GA S ORDERABLES Final Result Performing Organization Address [facility]/State/ZIP Co de Phone Number [facility] [address] [place] [address] documented in this encounter Visit Diagnoses Not on filedocumented in this encounter Care Teams Middle School Art Teacher Relationship Specialty Start Date End Date Ashley Chavez ARNP [address] [place] [address] PCP - General 07/11/10 documented as of this encounter
--- OUTSIDE RECORDS SUMMARY | 2024-06-27 15:16 | XMS_ITS | Encounter Summary ---
Author Organization [facility] Address [address] [place] [address] Care Team Providers Care Electro Optics Engineer Name Role Phone Scott Ashley WILLIAM Primary Care Provider [phone] Encounter Details Date Type Department Care Team (Late st Contact Info) Description 11/10/2013 Results Only [facility] [phone] Jeni Laird, YOUTH OFFICER [address] [place], [place] [phone] Social History Tobacco Use Types Packs/Day Years [...] ? PURNIMA THACKER ? Accession #: ? [id number] : ? 1955 (Age: 58) ??F ?Collect Date: ? 11/10/2013 Location: ? [facility] ? Receive Date: ? 11/14/2013 Provider: ?JENI LAIRD YOUTH OFFICER Copy to: ? Specimen/Source: ?Pap Test, [...] PAUL ARELLANO 11/10/2013 11/14/2013 us Jeni Laird YOUTH OFFICER PATHOLOGY ORDERABLES Magy morgan Result PAUL ARELLANO [address] [place] [address] documented in this encounter Visit Diagnoses Not on filedocumented in this encounter Care Teams Electro Optics Engineer Relationship Specialty Start Date End Date Ashley Chavez ARNP [address] [place] [address] PCP - General 07/11/10 documented as of this encounter
--- OUTSIDE RECORDS SUMMARY | 2024-06-27 15:16 | XMS_ITS | Encounter Summary ---
Author Organization [facility] Address [address] [place] [address] Care Team Providers Care Graphic Art Sales Representative Name Role Phone Unavailable Primary Care Provider Unavailabl e Encounter Details Date Type Department Care Team (Late st Contact Info) Description 07/08/2010 Results Only [facility] Non-Invasive Cardiology - [facility] [address] [place] [address] Ashley Chavez, WILLIAM [address] [place] [address] Social History Tobacco Use Types Packs/Day Years [...] ? PURNIMA THACKER ? Accession #: ? [id number] ? : ? 1955 (Age: 54) ??F [...] ORDERABLES Final Res ult PAUL ARELLANO [address] [place] [address] documented in this encounter Visit Diagnoses Not on filedocumented in this encounter
--- OUTSIDE RECORDS SUMMARY | 2024-06-27 15:16 | XMS_ITS | Encounter Summary ---
Author Organization [facility] Address [address] [place] [address] Care Team Providers Care Linux Systems Engineer Name Role Phone Ashley Chavez Primary Care Provider [phone] Encounter Details Date Type Department Care Team (Late st Contact Info) Description 12/17/2021 Lab Requisition [facility] Pathology & Laboratory Medicine - [address] [address] Outr Resulting Lab, Provider Social History Tobacco [...] Lyme Ab Negative Negative 12/18/2021 10:37 EDT [facility] Blood VENOUS BLOOD / Unknown 12/17/2021 13:30 EDT 12/17/2021 21:32 EDT us Provider Outr Resulting Lab IMMUNOLOGY AND SEROL OGY ORDERABLES Final Result Performing Organization Address [facility] Co de Phone Number [facility] [address] [place] [address] * (ABNORMAL) ANTI NUCLEAR AB (FRANCISCO), IFA (12/17/2021 13:30 EDT) FRANCISCO Interpretation Positive(A) Negative 12/18/2021 16:06 EDT [facility] Comment: For titers [...] Pattern 1 1:1280 Speckled 12/18/2021 16:06 EDT [facility] Blood VENOUS BLOOD / Unknown 12/17/2021 13:30 EDT 12/17/2021 21:32 EDT Narrative [facility] - 12/18/2021 16:06 EDT Results were obtained with the INOVA NOVA Lite HEp-2 FRANCISCO Kit by indirect immunofluorescence. us Provider Outr Resulting Lab IMMUNOLOGY AND SEROL OGY ORDERABLES Final Result Performing Organization Address [facility] Co de Phone Number [facility] [address] [place] [address] documented in this encounter Visit Diagnoses Not on filedocumented in this encounter Care Teams Linux Systems Engineer Relationship Specialty Start Date End Date Ashley Chavez ARNP [address] [place], [place] [id number] PCP - General 07/11/10 documented as of this encounter
--- OUTSIDE RECORDS SUMMARY | 2024-06-27 15:16 | XMS_ITS | Encounter Summary ---
Author Organization [facility] Address [address] [place] [address] Care Team Providers Care Blister Packaging Machine Operator Name Role Phone Scott, Ashley WILLIAM Primary Care Provider [phone] Encounter Details Date Type Department Care Team (Late st Contact Info) Description 03/21/2024 Lab Requisition [facility] Pathology & Laboratory Medicine - [address] [address] Consuelo Guerrero, DO [address] [place], [place] [phone] Encounter for other general examination Social History [...] 13:00 EDT) LORY Negative 03/21/2024 22:31 EDT [facility] Blood VENOUS BLOOD / Unknown 03/21/2024 13:00 EDT 03/21/2024 21:51 EDT us Consuelo Guerrero DO BLOOD BANK TESTS Final Result Performing Organization Address City/State/[facility] Co de Phone Number [facility] [address] [place] [address] documented in this encounter Visit Diagnoses Diagnosis Encounter for other general examination documented in this encounter Care Teams Blister Packaging Machine Operator Relationship Specialty Start Date End Date Ashley Chavez ARNP [address] [place] [address] PCP - General 07/11/10 documented as of this encounter
[2024-06-27 15:17] VITALS: BP 120/64; PULSE 87
--- OUTSIDE RECORDS SUMMARY | 2024-06-27 15:17 | XMS_ITS | Encounter Summary ---
[place] [address] Care Team Providers Care Underbaster Name Role Phone Magdalena Acosta MD Primary Care Provider [phone] Reason for Visit * Reason Comments Annual Exam Encounter Details Date Type Department Care Team (Late st Contact Info) Description 02/22/2024 4:15 PM EDT Office Visit Dermatology at [address] [phone] Marek Bonilla MD [address] [facility] A DERMATOLOGY [place], [place] [address] Seborrheic keratosis; Rosacea; Nevus Social History Tobacco [...] cutaneous and ocular 3. Previously told by filer helper that she had corneal tears from [...] Care Team (Late st Contact Info) Description 11/02/2024 12:00 PM EDT Appointment [place] [address] 11/02/2024 1:00 PM EDT Office [place] [address] Magdalena Peralta MD [facility] [place] [address] 03/01/2025 4:15 PM EDT Office Visit Dermatology at [place] [address] [place] [address] Marek Bonilla MD [address] [facility] [place] [address] documented as of this encounter Visit Diagnoses Diagnosis Seborrheic keratosis Other seborrheic keratosis Rosacea Nevus Benign neoplasm of skin, site unspecified documented in this encounter Care Teams Underbaster Relationship Specialty Start Date End Date Magdalena Acosta MD [address] [place] [address] PCP - General Family Medicine 02/05/23 documented as of this encounter
--- OUTSIDE RECORDS SUMMARY | 2024-06-27 15:17 | XMS_ITS | Encounter Summary ---
Author [facility] [place] [address] Care Team Providers Care Business Analyst Name Role Phone Magdalena Acosta MD Primary Care Provider [phone] Encounter Details Date Type Department Care Team [...] 11/02/2024 12:00 PM EDT Appointment [place] [phone] 11/02/2024 1:00 PM EDT Office [place] [phone] Magdalena Peralta MD [facility] [place] [address] 03/01/2025 4:15 PM EDT Office Visit Dermatology at [place] [address] [place] [address] Marek Bonilla MD [address] [place] [address] documented as of this encounter Visit Diagnoses Not on filedocumented in this encounter Care Teams Business Analyst Relationship Specialty Start Date End Date Magdalena Acosta MD [address] [place] [address] PCP - General Family Medicine 02/05/23 documented as of this encounter
--- OUTSIDE RECORDS SUMMARY | 2024-06-27 15:17 | XMS_ITS | Encounter Summary ---
Author Organization [facility] [place] [address] Care Team Providers Care Psychology Associate Name Role Phone Magdalena Acosta MD Primary Care Provider [phone] Encounter Details Date Type Department Care Team [...] 11/02/2024 12:00 PM EDT Appointment [place] [address] 11/02/2024 1:00 PM EDT Office [place] [phone] Magdalena Peralta MD [facility] [place] [address] 03/01/2025 4:15 PM EDT Office Visit Dermatology at [place] [address] [place] [address] Marek Bonilla MD [address] [place] [address] documented as of this encounter Visit Diagnoses Not on filedocumented in this encounter Care Teams Psychology Associate Relationship Specialty Start Date End Date Magdalena Acosta MD [address] [place] [address] PCP - General Family Medicine 02/05/23 documented as of this encounter
--- OUTSIDE RECORDS SUMMARY | 2024-06-27 15:17 | XMS_ITS | Encounter Summary ---
[place] [address] Care Team Providers Care Financial Reporting Specialist Name Role Phone Magdalena Acosta MD Primary Care Provider [phone] Encounter Details Date Type Department Care Team (Late st Contact Info) Description 05/18/2024 Interpretation Only [address] [address] Magdalena Acosta MD [address] [place], [place] [id number] Social History Tobacco Use Types Packs/Day Years [...] 12:00 PM EDT Appointment [place] [address] 11/02/2024 1:00 PM EDT Office [place] [address] Magdalena Peralta MD [facility] [place] [address] 03/01/2025 4:15 PM EDT Office Visit Dermatology at [place] [address] [address] Marek Bonilla MD [address] [place] [address] documented as of this encounter Procedures Procedure Name Priority Date/Time Associated Diagnosis Comments DXA CENTRAL SPINE, HIP, AND/OR WHOLE BODY (GENERIC) Routine 05/18/2024 11:21 AM EDT documented in this encounter Results * DXA Central Spine, Hip, and/or Whole Body (Generic) (05/18/2024 11:21 AM EDT) PT CLASS O RAD ADMITDTTM [id number] [facility] PT [facility] INFO [id number]^Dave ^Magdalena RAD EXAM DESC XDXAC^BD Bone Density DEXA Axial Skeleton^RIS [facility] WORKSTATION ID [id number] [facility] Anatomical Region Laterality Modality C-spine, Hip N/A [...] questions please contact the health acute care surgeon that requested your imaging first. ? Electronically signed by: Rocael Villatoro MD, [facility] ([phone]), at 05/18/2024 11:25 AM Narrative 05/18/2024 11:25 [...] have questions please contactthe health acute care surgeon that requested your imaging first. Electronically signed by: Rocael Villatoro MD, [facility]([phone]), at 05/18/2024 11:25 AM Magdalena Acosta MD IMG DEXA ORDERABLES documented in this encounter Visit Diagnoses Not on filedocumented in this encounter Care Teams Financial Reporting Specialist Relationship Specialty Start Date End Date Magdalena Acosta MD [address] [place] [id number] PCP - General Family Medicine 02/05/23 documented as of this encounter
--- OUTSIDE RECORDS SUMMARY | 2024-06-27 15:17 | XMS_ITS | Encounter Summary ---
Author Organization [place] [address] Care Team Providers Care Or Manager Name Role Phone Magdalena Acosta MD Primary Care Provider [phone] Encounter Details Date Type Department Care Team (Latest Contact Info) Description 05/12/2024 9:00 AM EDT Laboratory Appointment Lab at [facility] Hematology Oncology [address] [place] [phone] S/P TAVR (transcatheter aortic valve replacement); [...] 11/02/2024 12:00 PM EDT [place]oint[place] [address] 11/02/2024 1:00 PM EDT Office [place] [address] Magdalena Peralta MD [facility] [place] [address] 03/01/2025 4:15 PM EDT Office Visit Dermatology at [place] [address] [place] [address] Marek Bonilla MD [address] [place] [address] documented as of this encounter Procedures Procedure [...] EDT 05/12/2024 8:56 AM EDT Tova Russell BAG MACHINE OPERATOR HEMATOLOGY ORDERABL ES [facility] [place] [address] * (ABNORMAL) Comprehensive metabolic panel Non-fasting (05/12/2024 8:56 AM EDT) Glucose 86 65 - 199 mg/dL 05/12/2024 11:36 AM [facility] Comment:Glucose Concentratio n >=200 mg/dL plus symptoms is consistent with Diabetes Mellitus. Blood Urea Nitrogen 20(H) 8 - 18 mg/dL 05/12/2024 11:36 AM [facility] Creatinine 0.88 0.70 - 1.20 mg/dL 05/12/2024 11:36 AM [facility] Sodium 145 135 - [...] 8.5 - 10.5 mg/dL 05/12/2024 11:36 AM [facility] Protein, Total 7.3 6.1 - 8.0 g/dL 05/12/2024 11:36 AM [facility] Albumin 4.5 3.2 - 5.2 g/dL 05/12/2024 11:36 AM [facility] Aspartate Aminotransferase 24 <=30 unit/L 05/12/2024 11:36 AM [facility] Alanine Aminotransferase 14 0 - 30 unit/L 05/12/2024 11:36 AM [facility] Alkaline Phosphatase 98 35 - 105 unit/L 05/12/2024 11:36 AM EDT [facility] Bilirubin, Total 0.2 <=1.3 mg/dL 05/12/2024 11:36 AM EDT [facility] Est Glomerular Filtration Rate - Female 72 mL/min/1. 73 m?? 05/12/2024 11:36 AM EDT [facility] Comment: This patient's [...] Fasting Status No 05/12/2024 11:36 AM EDT [facility] Blood VENOUS BLOOD SPECIMEN / Unknown Venipuncture / Unknown 05/12/2024 8:56 AM EDT 05/12/2024 8:56 AM EDT Tova Russell BAG MACHINE OPERATOR CHEMISTRY ORDERABLE S [facility] [place] [address] * (ABNORMAL) CBC (with Diff) (05/12/2024 8:56 AM EDT) White Blood Cell 3.47(L) 4.00 - 9.50 x10(3)/mc L 05/12/2024 9:32 AM EDT [facility] Red Blood Cell 3.31(L) 4.00 - 5.21 x10(6)/mc L 05/12/2024 9:32 AM EDT [facility] Hemoglobin 11.1(L) 11.7 - 15.5 g/dL 05/12/2024 9:32 AM EDT [facility] Hematocrit 33.2(L) 35.7 - 45.8 % 05/12/2024 9:32 AM [facility] Mean Cell Volume 100.3(H) 82.6 - 94.4 fL 05/12/2024 9:32 AM [facility] Mean Cell Hemoglobin 33.5(H) 27.1 - 32.0 pg 05/12/2024 9:32 AM [facility] Mean Cell Hemoglobin Concentration 33.4 31.7 - 35.0 g/dL 05/12/2024 9:32 AM [facility] Platelet 142(L) 145 - 357 x10(3)/mc L 05/12/2024 9:32 AM [facility] Mean Platelet Volume 8.7 7.6 - 12.9 fL 05/12/2024 9:32 AM [facility] RDW Standard Deviation 44.4 37.0 - 46.0 fL 05/12/2024 9:32 AM [facility] RDW coefficient of variation 12.0 11.5 - 14.1 % 05/12/2024 9:32 AM [facility] NRBC% auto 0.0 % 05/12/2024 9:32 AM [facility] NRBC Absolute <0.01 <0.01 x10(3)/mc L 05/12/2024 9:32 AM [facility] Neutrophil % 69.7 % 05/12/2024 9:32 AM [facility] Neutrophil Absolute (ANC) - Automated 2.42 1.70 - 6.10 x10(3)/mc L 05/12/2024 9:32 AM [facility] Lymph % 16.7 % 05/12/2024 9:32 AM [facility] Lymph Absolute 0.58(L) 0.90 - 3.20 x10(3)/mc L 05/12/2024 9:32 AM [facility] Monocyte % 12.1 % [...] EDT 05/12/2024 8:56 AM EDT Tova Russell BAG MACHINE OPERATOR HEMATOLOGY ORDERABL ES [facility] [place] [address] documented in this encounter Visit Diagnoses Diagnosis S/P TAVR (transcatheter aortic valve replacement) Chronic idiopathic neutropenia Other neutropenia documented in this encounter Care Teams Or Manager Relationship Specialty Start Date End Date Magdalena Acosta MD [address] [place] [address] PCP - General Family Medicine 02/05/23 documented as of this encounter
--- OUTSIDE RECORDS SUMMARY | 2024-06-27 15:17 | XMS_ITS | Encounter Summary ---
Author Organization [facility] [place] [address] Care Team Providers Care Career And Technology Education Teacher Name Role Phone Magdalena Acosta MD Primary Care Provider [phone] Encounter Details Date Type Department Care Team [...] 11/02/2024 12:00 PM EDT Appointment [place] [phone] 11/02/2024 1:00 PM EDT Office [place] [phone] Magdalena Peralta MD [facility] [place] [address] 03/01/2025 4:15 PM EDT Office Visit Dermatology at [place] [address] [place] [address] Marek Bonilla MD [address] [place] [address] documented as of this encounter Visit Diagnoses Not on filedocumented in this encounter Care Teams Career And Technology Education Teacher Relationship Specialty Start Date End Date Magdalena Acosta MD [address] [place] [address] PCP - General Family Medicine 02/05/23 documented as of this encounter
--- OUTSIDE RECORDS SUMMARY | 2024-06-27 15:17 | XMS_ITS | Encounter Summary ---
[place] [address] Care Team Providers Care Fiberglass Boat Maker Name Role Phone Magdalena Acosta MD Primary Care Provider [phone] Reason for Referral * Consultation (Routine) - Closed Specialty Diagnoses / Procedures Referred By Contac t Referred To Contact Hematology and Oncology Diagnoses Anemia, unspecified type Consuelo Gurerero DO [address] [place] [address] [address] [place] [address] [facility] [address] [place] [address] Referral ID Status Reason Start Date Expiration Date V isits Requested Visits Authorized [id number] Closed Consult, Test & Treat 04/11/2024 04/11/2025 1 1 Encounter Details Date Type Department Care Team (Late st Contact Info) Description 04/11/2024 Transcribe Orders eDH Incoming Referrals [phone] Consuelo Guerrero DO [address] [place] [address] [address] [place] [address] Anemia, unspecified type Social History [...] PM EDT Appoint[place] [address] 11/02/2024 1:00 PM EDT [place] [address] Magdalena Peralta MD [facility] [place] [address] 03/01/2025 4:15 PM EDT Office Visit Dermatology at [place] [address] [place] [address] Marek Bonilla MD [address] [facility] [place] [address] Scheduled Referrals Name Type Priority Associated Diagnoses Orde r Schedule Referral to Hematology and Oncology Outpatient Referral Routine Anemia, unspecified type Ordered: 04/11/2024 documented as of this encounter Visit Diagnoses Diagnosis Anemia, unspecified type documented in this encounter Care Teams Fiberglass Boat Maker Relationship Specialty Start Date End Date Magdalena Acosta MD [address] [place] [address] PCP - General Family Medicine 02/05/23 documented as of this encounter
--- OUTSIDE RECORDS SUMMARY | 2024-06-27 15:17 | XMS_ITS | Encounter Summary ---
Author Organization [facility] [place] [address] Care Team Providers Care Fuel Island Attendant Name Role Phone Magdalena Acosta MD Primary Care Provider [phone] Reason for Visit * Reason Comments Aortic Stenosis Coronary Artery Disease Hypertension Encounter Details Date Type Department Care Team (Latest Contact Info) Description 11/16/2023 11:40 AM EDT TH Visit (TeleHealth) Cardiology at [address] [address] Jay Maza [place] [address] Aortic valve stenosis, etiology of cardiac valve disease unspecified; Coronary artery disease, unspecified vessel or lesion type, unspecified whether angina present, unspecified whether elem or transplanted heart Social History Tobacco Use Types Packs/Day Years Used Date Smoking Tobacco: Never Smokeless Tobacco: Never Alcohol Use Standard Drinks/Week Comments No 0 (1 standard drink = 0.6 oz pur e alcohol) none [facility] Inpatient Questions Answer Date Recorded Does Anyone [...] from the original note were not included. [facility] Interventional Cardiology CARDIOLOGY TELE VISIT NOTE 11/16/23 Patient: Purnima Thacker Prior to the initiation of our discussion, the risks and benefits of tele health visits were discussed, and the patient consented verbally to this being a virtual telehealth visit in lieu of an in person office visit. CARDIOLOGISTS: Antelmo Sharma MD ([facility] Cards) Maria Luz Mejia MD ([facility] Cards - [facility]) Problem [...] notable for coronary artery protection given low [id number] distance. There was no obstruction post Valve [...] leads Confirmed by MD Harshil, Haris Bell ([id number]) on 05/10/2023 8:11:46 AM Cardiac Cath 11/09/2022 [...] in one year. EKATERINA Thompson Time spent: [id number] 0-5min [id number] 6-10min 1365CAV0 11-15min x [id number] 16-20min 4625FYB8 21-30min 7596WWJ7 31-40min 2679IFK5 40+ min Jay Maza PA-C Interventional Cardiology [facility] Pager [phone] documented in this encounter Plan of Treatment Upcoming Encounters Date Type Department Care Team (Late st Contact Info) Description 11/02/2024 12:00 PM EDT [place] [address] 11/02/2024 1:00 PM EDT [place] [address] Magdalena Peralta MD [facility] [place] [address] 03/01/2025 4:15 PM EDT Office Visit Dermatology at [place] [address] [place] [address] Marek Bonilla MD [address] [place] [address] documented as of this encounter Visit Diagnoses Diagnosis Aortic valve stenosis, etiology of cardiac valve disease unspecified Coronary artery disease, unspecified vessel or lesion type, unspecified whether angina present, unspecified whether elem or transplanted heart documented in this encounter Care Teams Fuel Island Attendant Relationship Specialty Start Date End Date Magdalena Acosta MD [address] [place] [address] PCP - General Family Medicine 02/05/23 documented as of this encounter
--- OUTSIDE RECORDS SUMMARY | 2024-06-27 15:17 | XMS_ITS | Encounter Summary ---
Author Organization Formerly [facility] Address [facility] [place] [address] Care Team Providers Care Hadoop Consultant Name Role Phone Magdalena Acosta MD Primary Care Provider [phone] Reason for Visit * Reason Comments Follow-up Encounter Details Date Type Department Care Team (Late st Contact Info) Description 06/23/2024 2:00 PM EST Office Visit [place]ematology [place] [address] Markel Borjas MD [facility] [address] HEMATOLOGY [place] [address] Chronic idiopathic neutropenia; Anemia, unspecified type Social History Tobacco Use [...] Sign Reading Time Taken Comments Blood Pressure 114/50 06/23/2024 1:55 PM EST Pulse 78 06/23/2024 1:55 PM EST Temperature 36.1 ??C (96.9 ??F) 06/23/2024 1:55 PM ES T Respiratory Rate 17 06/23/2024 1:55 PM EST Oxygen Saturation 100% 06/23/2024 1:55 PM EST Inhaled Oxygen Concentration - - Weight 84.6 kg (186 lb 8.2 oz) 06/23/2024 1:55 P M EST Height 152.4 cm (5') 06/23/2024 1:55 PM EST Body Mass Index 36.43 06/23/2024 1:55 PM EST documented in this encounter Progress Notes * Markel Borjas MD - 06/23/2024 2:00 PM EST Hematology Outpatient Clinic [facility] Hematology Outpatient Consult Note CC: 60 [...] no lymphadenopathy or masses- essentially normal Pathology 2016- DIAGNOSIS BONE MARROW (PERIPHERAL SMEAR, ASPIRATE SMEAR, TOUCH PREP, CLOT SECTION, CORE BIOPSY); [OSR# [id number], COLLECTED 06/23/2016, 19 SLIDES]: 1. Normocellular marrow [...] a clonal lymphoproliferative or myeloproliferative disorder (OSR# [id number]) Chromosome analysis on the marrow aspirate revealed a normal female karyotype; 46,XX PB Flow- DIAGNOSIS 1. No increased or abnormal immunophenotype T/NK/LGL or monoclonal B-cell populations identified. 2. No increased blast population present (see Discussion). 06/2024- Bone marrow Normal Histology Normal FISH No molecular myeloid mutations INTERIM HISTORY Purnima has not been well. Here to review marrow. No new symptoms Past Medical/Surgical History: 1. Leukopenia -element of neutropenia, as noted above 2. Aortic Stenosis -severe -AVR surgery 3. Hypercholesterolemia 4. 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 hydrOXYchloroQUINE (Plaquenil) 200 mg tablet Take 1 tablet by mouth daily. Yes pantoprazole EC (Protonix) [address] tablet [...] Take 75 mg by mouth daily. Yes nystatin (MYCOSTATIN) 100,000 unit/gram Powder Apply topically 2 times daily as needed. Yes OneTouch Verio test strips Strip USE DAILY Yes OneTouch Delica Plus Lancet 33 gauge Misc USE DAILY Yes amoxicillin (AMOXIL) 500 mg Tablet Take 2,000 mg by mouth once as needed. Before dental Yes multivitamin (THERAGRAN) Tablet Take 1 tablet by mouth daily. Yes atorvastatin (LIPITOR) 10 mg Tablet Take 10 mg by mouth daily. Yes aspirin 81 mg EC tablet Take 81 mg by mouth daily. Yes acetaminophen (TYLENOL) 500 mg Tablet Take 2 tablets by mouth every 6 hours as needed for Pain (Please take up to 1,000 mg every 6 hours when experiencing pain -05/11.). Patient not taking: Reported on 06/01/2024 Allergies: Reviewed in eD-H Review of Systems Besides what is mentioned in HPI, all other systems are negative Physical Exam: Patient Vitals for the past 24 hrs: Temp Pulse Resp BP SpO2 06/23/24 1355 36.1 ??C (96.9 ??F) 78 17 114/50 100 % Gen: Well-appearing woman, conversant and in [...] previous visit (from the past 24 hour(s)). Assessment: 60 year-old woman found to have severe neutropenia during preop evaluation. BM in 2015 was relatively unrevealing. She was found to respond to Neulasta for procedure. She did not have anyinfectious complications. However, in 2023, she presents again with anemia and thrombocytopenia (interestingly, her ANC was normal). Of note, she started Plaquenil for Rheum disease in 2022. BM was completely normal, including histology/ FISH/ molecular testing (05/2024) With the benefit of a normal Bone marrow, I can now safely say Purnima does not have a bone marrow disease or disorder. Suspect the mild anemia is secondary, either to meds or inflammation. But based on the mild nature of anemia, I don't think it necessitates changing. No f/u necessary Markel Borjas MD documented in this encounter Plan of Treatment Upcoming Encounters Date Type Department Care Team (Late st Contact Info) Description 11/02/2024 12:00 PM EDT [place]oint[place] [address] 11/02/2024 1:00 PM EDT Office [place] [address] Magdalena Peralta MD [facility] [address] [place] [address] 03/01/2025 4:15 PM EDT Office Visit Dermatology at [place] [address] [place] [address] Marek Bonilla MD [address] [place] [address] documented as of this encounter Visit Diagnoses Diagnosis Chronic idiopathic neutropenia Other neutropenia Anemia, unspecified type documented in this encounter Care Teams Hadoop Consultant Relationship Specialty Start Date End Date Magdalena Acosta MD [address] [place] [address] PCP - General Family Medicine 02/05/23 documented as of this encounter
--- OUTSIDE RECORDS SUMMARY | 2024-06-27 15:17 | XMS_ITS | Encounter Summary ---
Author Organization [facility] [place] [address] Care Team Providers Care Linseed Oil Order Filler Name Role Phone Magdalena Acosta MD Primary Care Provider [phone] Encounter Details Date Type Department Care Team [...] 11/02/2024 12:00 PM EDT Appointment [place] [address] 11/02/2024 1:00 PM EDT Office [place] [address] Magdalena Peralta MD [facility] [place] [address] 03/01/2025 4:15 PM EDT Office Visit Dermatology at [place] [address] [place] [address] Marek Bonilla MD [address] [place] [address] documented as of this encounter Visit Diagnoses Not on filedocumented in this encounter Care Teams Linseed Oil Order Filler Relationship Specialty Start Date End Date Magdalena Acosta MD [address] [place] [address] PCP - General Family Medicine 02/05/23 documented as of this encounter
--- OUTSIDE RECORDS SUMMARY | 2024-06-27 15:17 | XMS_ITS | Encounter Summary ---
[place] [address] Care Team Providers Care Printer Operator Name Role Phone Magdalena Acosta MD Primary Care Provider [phone] Encounter Details Date Type Department Care Team (Latest Contact Info) Description 07/08/2023 12:35 PM EST Laboratory Appointment Lab [address] [place] [address] S/P TAVR (transcatheter aortic valve [...] 11/02/2024 12:00 PM EDT Appointment [place] [address] 11/02/2024 1:00 PM EDT Office [place] [address] Magdalena Peralta MD [address] [place] [address] 03/01/2025 4:15 PM EDT Office Visit Dermatology at [place] [address] [place] [address] Marek Bonilla MD [address] [place] [address] documented as of this encounter [...] AM EST) Neutrophil % 73.2 % [facility] Neutrophil Absolute 3.40 1.70 - 6.10 x10(3)/mc L [facility] Lymph % 16.1 % [facility] Lymphocytes Abs 0.8(L) 0.9 - 3.2 x10(3)/mc L [facility] Monocyte % 9.7 % [facility] Monocyte Abs 0.4 0.3 - 0.9 x10(3)/mc L [facility] Eos % 0.4 % [facility] Eosinophils Abs 0.0 0.0 - 0.4 x10(3)/mc L [facility] Basophil % 0.4 % [facility] Baso Absolute 0.0 0.0 - 0.1 x10(3)/mc L [facility] Immature Gran % 0.20 % [facility] Comment: Immature granulocytes(IG's)percentage and absolute count will include metamyelocytes, myelocytes, and promyelocytes. Blood smears from CBCs yielding IG's will be scanned manually for concordance. If this scan disagrees with the automated IG or if promyelocytes are noted, a manual differential will be performed. Immature Gran Absolute 0.01 0.00 - 0.04 x10(3)/mc L [facility] Blood 07/08/2023 11:5 6 AM EST 07/08/2023 12:02 PM EST Narrative Resulting Agency Comment Spec In Lab Minh [facility] HEMATOLOGY ORDERABLE S [facility] [place] [address] * (ABNORMAL) Hemogram (07/08/2023 11:56 AM EST) White Blood Cell 4.6 4.0 - 9.5 x10(3)/mc L [facility] Red Blood Cell 3.34(L) 4.00 - 5.21 x10(6)/[facility] Hemoglobin 11.0(L) 11.7 - 15.5 g/dL [facility] Hematocrit 33.2(L) 35.7 - 45.8 % [facility] Mean Cell Volume 99.4(H) 82.6 - 94.[address] [facility] Mean Cell Hemoglobin 32.9(H) 27.1 - 32.[address] [facility] Mean Cell Hemoglobin Concentration 33.1 31.7 - 35.0 g/dL [facility] Platelet 166 145 - 357 x10(3)/mc L [facility] RDW Standard Deviation 47.1(H) 37.0 - 46.[address] [facility] RDW coefficient of variation 13.0 11.5 - 14.1 % [facility] Mean Platelet Volume 9.0 7.6 - 12.[address] [facility] NRBC% auto 0.0 % [facility] NRBC Absolute 0.000 0.000 - 0.000 x10(3)/mc L [facility] Blood 07/08/2023 11:5 6 AM EST 07/08/2023 12:02 PM EST Narrative Resulting Agency Comment Spec In Lab Min[facility]EMATOLOG[facility] ORDERABLE S [facility] [place] [address] * (ABNORMAL) Comprehensive metabolic panel (non-fasting) (07/08/2023 11:56 AM EST) Glucose 93 65 - 199 mg/dL [facility] Comment:Diabetes: >=200 mg/d L plus symptoms Blood Urea Nitrogen 19(H) 8 - 18 mg/dL [facility] Creatinine 0.81 0.70 - 1.20 mg/dL [facility] Sodium 142 135 - 145 mmol/L [facility] Potassium 3.8 3.5 - 5.0 mmol/L [facility] Comment: Please note: ??Patients with WBC >100,000 may have falsely elevated Potassium levels. ??For accurate Potassium quantification in these patients send serum separator tube (gold top) for subsequent determinations. ??Contact the Clinical Chemistry Laboratory if there are any questions. Chloride 104 98 - 107 mmol/L [facility] Carbon Dioxide 26 22 - 31 mmol/L [facility] Anion Gap 12 5 - 15 mmol/L [facility] Calcium 10.2 8.5 - 10.5 mg/dL [facility] Protein, Total 7.4 6.1 - 8.0 g/dL [facility] Albumin 4.1 3.2 - 5.2 g/dL [facility] Aspartate Aminotransferase 24 0 - 30 unit/L [facility] Alanine Aminotransferase 12 0 - 30 unit/L [facility] Alkaline Phosphatase 93 35 - 105 unit/L [facility] Bilirubin, Total 0.3 0.2 - 1.3 mg/dL [facility] Est Glomerular Filtration Rate 80 >=60 mL/min/1. 73 m?? [facility] [...] Lab Alirio Esparza MD CHEMISTRY ORDERABLE S [facility] [place] [address] documented in this encounter Visit Diagnoses Diagnosis S/P TAVR (transcatheter aortic valve replacement) Severe aortic stenosis Aortic valve disorders documented in this encounter Care Teams Printer Operator Relationship Specialty Start Date End Date Magdalena Acosta MD [address] [place] [address] PCP - General Family Medicine 02/05/23 documented as of this encounter
--- OUTSIDE RECORDS SUMMARY | 2024-06-27 15:17 | XMS_ITS | Encounter Summary ---
Author Organization [facility] [place] [address] Care Team Providers Care Commercial Account Manager Name Role Phone Magdalena Acosta MD Primary Care Provider [phone] Encounter Details Date Type Department Care Team [...] 11/02/2024 12:00 PM EDT [place] [phone] 11/02/2024 1:00 PM EDT [place] [phone] Magdalena Peralta MD [facility] [place] [address] 03/01/2025 4:15 PM EDT Office Visit Dermatology at [place] [address] [place] [address] Marek Bonilla MD [address] [place] [address] documented as of this encounter Visit Diagnoses Not on filedocumented in this encounter Care Teams Commercial Account Manager Relationship Specialty Start Date End Date Magdalena Acosta MD [address] [place] [address] PCP - General Family Medicine 02/05/23 documented as of this encounter
--- OUTSIDE RECORDS SUMMARY | 2024-06-27 15:17 | XMS_ITS | Encounter Summary ---
Author Organization [facility] Address [facility] [place] [address] Care Team Providers Care Manager Gas Name Role Phone Magdalena Acosta MD Primary Care Provider [phone] Encounter Details Date Type Department Care Team (Late st Contact Info) Description 07/29/2023 11:00 AM EST Office [place] [address] Magdalena Peralta MD [facility] [facility] [place] [address] Mixed connective tissue disease Social History Tobacco [...] 1:5120 speckled; VIC negative; Myositis panel with [employer] ab 149.1 (positive); Anti U1RNP IgG [...] Viramontes. Magdalena Peralta MD Rheumatology Fellow Pager: [phone] * Kia Viramontes DO - 07/29/2023 11:00 AM EST ATTENDING ADDENDUM The patient's history was reviewed, and I interviewed and examined the patient with Dr. Peralta I agree with her summary, findings, and plan. documented in this encounter Plan of Treatment Upcoming Encounters Date Type Department Care Team (Late st Contact Info) Description 11/02/2024 12:00 PM EDT Appointment [place] [address] 11/02/2024 1:00 PM EDT Office [place] [address] Magdalena Peralta MD [facility] [place] [address] 03/01/2025 4:15 PM EDT Office Visit Dermatology at [place] [address] [place] [phone] Marek Bonilla MD [address] DERMATOLOGY [place], [place] [id number] documented as of this encounter Results * [...] PFT FEV1/FVC Pre-BD Z-Score 0 COMPAS PFT DWN42-20 Actual Pre-BD 2.41 % COMPAS PFT JPR87-27 Predicted 1.8 % COMPAS PFT YAX43-22 Pre-BD % of Predicted 134 % COMPAS PFT XQX69-27 Pre-BD Z-Score 0.81 COMPAS PFT DLCO Hb [...] documented in this encounter Care Teams Manager Gas Relationship Specialty Start Date End Date Magdalena Acosta MD [address] [place] [address] PCP - General Family Medicine 02/05/23 documented as of this encounter
--- OUTSIDE RECORDS SUMMARY | 2024-06-27 15:17 | XMS_ITS | Encounter Summary ---
Author Organization [facility] [place] [address] Care Team Providers Care Income Tax Analyst Name Role Phone Magdalena Acosta MD Primary Care Provider [phone] Encounter Details Date Type Department Care Team (Late st Contact Info) Description 06/05/2024 2:00 PM EST - 06/05/2024 3:00 PM EST Surgery [place] [address] Markel Borjas MD [facility] DR HEMATOLOGY [place] [address] ([facility] MSURG) BONE MARROW BIOPSY AND ASPIRATION; [...] 5pm or on a weekend: Call the [facility] head sulfide operator at and ask for the physician fashion director party plan sales covering for your doctor. Instructions following sedation [...] drainage occurs, [place] [address] [email or web address] [facility] documented in this encounter Medications at Time [...] topically 2 times daily as needed. 10/22/2022 TaodyneTouch Verio test strips Strip USE DAILY 01/03/2022 TaodyneTouch Delica Plus Lancet 33 gauge Misc USE DAILY 01/03/2022 amoxicillin (AMOXIL) 500 mg Tablet Take 2,000 mg by mouth once as needed. Before dental multivitamin (THERAGRAN) Tablet Take 1 tablet by [...] experiencing pain -05/11.). 30 tablet 5 09/25/2016 documented as of this encounter Progress [...] 11/02/2024 12:00 PM EDT Appointment [place] [address] 11/02/2024 1:00 PM EDT Office Visit [place] [address] Magdalena Peralta MD [facility] DR [place] [address] 03/01/2025 4:15 PM EDT Office Visit Dermatology at [place] [address] [place] [phone] Marek Bonilla MD [address] [place] [address] documented as of this encounter Procedures Procedure [...] EST Diagnostic Bone Marrow Biopsies & Aspirations (13590) 06/05/2024 2:03 PM EST Anemia, in pt with longstanding neutropenia CBC (WITH DIFF) Routine 06/05/2024 1:45 PM EST ([facility] MSURG) BONE MARROW BIOPSY AND ASPIRATION; DIAGNOSTIC Routine 06/05/2024 1:07 PM EST documented in this encounter Results * Myelodysplastic Syndrome (MDS) FISH Panel (06/05/2024 2:22 PM EST) Specimen Condition adequate 06/08/2024 11:23 PM [facility] Indication for Study Anemia, in patient with presumed hx of benign neutropenia 06/08/2024 11:23 PM [facility] FISH Panel Summary NEGATIVE for all FISH Panel markers 06/08/2024 11:23 PM [facility] FISH Results 5q deletion, monosomy 5, 7q deletion, monosomy 7, trisomy 8, and 20q deletion NOT DETECTED. 06/08/2024 11:23 PM [facility] ISCN Nomenclature nuc josselin(D5S23,EGR1)x2[ 200],(D7Z1,Q9R825) x2[200],(D8Z2,D20S 108)x2[200] 06/08/2024 11:23 PM [facility] Culture Type Direct Assawoman 06/08/20 11:23 PM [facility] FISH Method Interphase 06/08/2024 11:23 PM [facility] Interpretation Interphase FISH analysis [...] analysis using probes for CEP7/D7Z1/7p11.1q1 1.1 and W2J185/7q31 loci ([employer] shows 1.5% and 0% of 200 cells with 7q signal deletion (7q-) and chromosome 7 signal loss (monosomy 7) patterns, respectively. These are within acceptable reference limits (7q deletion: 0-6.3%; monosomy 7: 0-4.4%). Thus, there is no evidence for 7q deletion and monosomy 7. Interphase FISH analysis using probes for CEP8/D8Z2/8p11.1q1 1.1 and S70K069/20q12 loci ([employer] shows 0% and 2.5% of 200 cells with a chromosome 8 signal gain and 20q signal deletion patterns, respectively. These are within acceptable reference limits (trisomy 8: 0-5.1%; 20q deletion: 0-6.3%). Thus, there is no evidence for trisomy 8 and 20q deletion. Correlation with clinical and pathological studies is suggested. 06/08/2024 11:23 PM [facility] Technical Methods FISH is [...] The FISH probes are directly-labeled by the elevator tender (Fundera or Guomai) with either a spectrum orange, green, or aqua fluorochrome. Cells are stained with DAPI (Fundera), visualized through fluorescence microscopy, and images captured on the CytoVision software ([employer]). Results are reported based on an International System for Human Cytogenomic Nomenclature. 06/08/2024 11:23 PM [facility] Limitations & Disclaimers The FISH test was developed and its performance characteristics were determined by the [facility] ([facility] Cytogenetics Laboratory [...] not be detected. 06/08/2024 11:[address] [facility] Sign-out by Professional component performed by Lizette Bullock, Ph.D., [facility], [address], [place], [place] (CLIA #: [id number]). 06/08/2024 11:[address] [facility] Bone Marrow Non Blood Collection / Unknown 06/05/2024 2:22 PM EST 06/05/2024 3:07 PM EST Georges Boucher MD MOLECULAR ORDERABLES Performing Organization Address City/[facility]/ZIP Co de Phone Number [facility] [place] [address] * Chromosome Analysis, Acquired ([facility]) (06/05/2024 2:22 [...] ORDERAB LES REF LAB [facility] [address] [place] [address], [facility] * HemeSeq (Bone Marrow) (06/05/2024 2:22 PM EST) Pathologist [facility] NGS Report Status Normal 06/13/2024 10:21 AM EST [facility] Bone Marrow Non Blood Collection / Unknown 06/05/2024 2:22 PM EST 06/05/2024 3:07 PM EST Georges Boucher MD MOLECULAR ORDERABLES [facility] [place] [address] * Immunophenotyping Flow Cytometry (06/05/2024 2:22 PM EST) Final Diagnosis - No monotypic B-cell population, no monotypic plasma cell population, no phenotypically abnormal T-cell population or increase in blasts is detected. 06/06/2024 2:08 PM [facility] Signing Pathologist This result has been reviewed by Georges Boucher MD on 06/06/24 at 2:08 PM. 06/06/2024 2:[address] [facility] Interpretation CD19+ B-cells show a [...] blast populations identified. 06/06/2024 2:[address] [facility] Lymphocyte % 4.7 % 06/06/2024 2:[address] [facility] Monocyte % 3.0 % 06/06/2024 2:[address] [facility] Granulocyte % 76.0 % 06/06/2024 2:08 PM [facility] CD45 DIM % 0.9 % 06/06/2024 2:08 PM [facility] CD38 Bright/CD138+ 0.2 % 06/06/2024 2:08 PM [facility] CD3+ % 70.0 % 06/06/2024 2:08 PM [facility] CD19+ % 17.0 % 06/06/2024 2:08 PM [facility] CD56+ % 12.0 % 06/06/2024 2:08 PM [facility] B-Cell:T-Cell Ratio 0.2 06/06/2024 2:08 PM [facility] Aragon:Lambda Ratio 1.8 06/06/2024 2:08 PM [facility] CD4:CD8 Ratio 1.6 06/06/2024 2:08 PM [facility] Specimen Processing Cells for immunophenotypic analysis were derived from bone marrow. The following markers were assessed: CD2, CD3, CD4, CD5, CD7, CD8, CD10, CD19, CD20, CD38, CD45, CD56, CD138, kappa light chain, (c)kappa light chain, lambda light chain, (c)lambda light chain,CD13, CD14, CD34, CD45, CD117, and HLA-DR. 06/06/2024 2:08 PM [facility] Disclaimer Flow analysis is an ancillary study. A definite diagnosis requires correlation with the morphologic features of this process and if necessary, correlation with other ancillary studies like immunohistochemist ry, enzyme cytochemistry and/or cyto/molecular genetics. This test was developed and its performance characteristics determined by the Clinical Flow Cytometry Laboratory at [facility]. It has not been cleared [...] complexity clinical laboratory testing. 06/06/2024 2:08 PM [facility] Bone Marrow Non Blood Collection / Unknown 06/05/2024 2:22 PM EST 06/05/2024 3:07 PM EST Georges Boucher MD HEMATOLOGY ORDERABLE S Performing Organization Address [facility] [place] [address] * BM HOLD CYTOGENETICS/FISH (06/05/2024 2:22 PM EST) Bone Marrow Non Blood Collection / Unknown 06/05/2024 2:22 PM EST 06/05/2024 3:[address] [facility] - 06/06/2024 10:47 AM EST ~3ml Markel Borjas MD PATHOLOGY/CYTOLOGY ORDERABLES Performing Organization Address [facility] [place] [address] * BM HOLD FLOW/MOLECULAR (06/05/2024 2:22 PM EST) Bone Marrow Non Blood Collection / Unknown 06/05/2024 2:22 PM EST 06/05/2024 3:07 PM EST Markel Borjas MD PATHOLOGY/CYTOLOGY ORDERABLES Performing Organization Address [facility] de Phone Number [facility] [place] [address] * Bone Marrow (06/05/2024 2:22 PM EST) Case Report Bone Marrow Patholog y Report ?Case: [id number] ? Authorizing Provider: ??Markel Borjas MD ?Collected: ? 06/05/2024 1422 ? Ordering Location: ? [facility] ??Received: ?06/05/2024 1508 ? [facility] ? Pathologist: ? Boucher, Georges L, MD ? Specimens: ?? A) - Iliac Crest, Left ? B) - Iliac Crest, Left ? C) - Iliac Crest, Left ? 11/21/202 4 1:31 PM EST [facility] Integrated Results Bone marrow karyotype was [...] Clinical correlation is recommended. 4 1:31 PM [facility] Addendum electronically signed by Georges Boucher MD on 06/22/2024 at 1:31 PM Final Diagnosis BONE MARROW (BLOOD FILM, ASPIRATE, TOUCH PREP, CORE & CLOT SECTIONS): 1. Normocellular bone marrow with maturing trilineage hematopoiesis. No overt dysplasia or increased blasts. 2. Ancillary studies pending. 1:31 PM [facility] Discussion The patient's histor y of neutropenia in 2015 with bone marrow biopsy showing no overt [...] integrated report to follow. 4 1:31 PM [facility] Additional Studies Task ID IHC/Special Stains Result B1-3 Myeloperoxidase Highlights granulocytic precursors. B1-4 CD34 Highlights rare blasts (<5% of cells) B1-5 CD117 Highlights rare mast cells. B1-6 E-Cadherin Highlights normal erythroid precursors. B1-7 CD61 Highlights normal megakaryocytes. 4 1:31 PM [facility] Clinical Information Anemia, in patient with presumed hx of benign neutropenia 4 1:31 PM [facility] Gross Description A. Iliac Crest, Left. Number of Lavender (EDTA) tubes: 3 Total Volume of Lavender (EDTA) tubes: 8 ml Number of Green (NaHep) tubes: 1 Total Volume of Green (NaHep) tubes: 3 ml Spicule/Clot Section submitted? Present Tube to Biorepository? Present Processed by: Abbie Barrow Collected off the [facility] by: N/A B. Iliac Crest, [...] toto in 1 cassette labeled C1. CCP 1:31 PM [facility] Disclaimer(s) Formalin-fixed, paraffin-embedded tissue [...] morphology, histopathological criteria and other diagnostic tests. 1:31 PM [facility] Bone Marrow Aspirate Adequacy: [...] stain: Iron stores present, no ring sideroblasts. 1:31 PM [facility] Bone Marrow Biopsy and/or [...] bone normal for age. 4 1:[address] [facility] Bone Marrow Differential Band/Seg 34%; Lymph 8%; [place] 0%; Eos 2%; Baso 1%; Metamyelocyte 13%; Myelocyte 9%; Promyelocyte 2%; Blast 1%; nRBC's 27%; Plasma cell 3% 4 1:31 PM [facility] Result Note Routine 1:31 PM [facility] Peripheral Blood Morphology RBCs: Mildly macrocytic anemia with rare target cells, ovalocytes. WBCs: Unremarkable. Platelets: Rare large platelet form present. 1:31 PM [facility] STRUCTURE OF LEFT ILIAC CREST / Unknown 06/05/2024 2:22 PM EST 06/05/2024 3:08 PM EST STRUCTURE OF LEFT ILIAC CREST / Unknown 06/05/2024 2:22 PM EST 06/05/2024 3:08 PM EST STRUCTURE OF LEFT ILIAC CREST / Unknown 06/05/2024 2:22 PM EST 06/05/2024 3:08 PM EST Markel Borjas MD PATHOLOGY/CYTOLOGY ORDERABLES [facility] [address] * (ABNORMAL) CBC (with Diff) (06/05/2024 1:45 PM EST) White Blood Cell 3.06(L) 4.00 - 9.50 x10(3)/mc L 06/05/2024 2:[address] [facility] Red Blood Cell 3.35(L) 4.00 - 5.21 x10(6)/mc L 06/05/2024 2:38 PM [facility] Hemoglobin 11.0(L) 11.7 - 15.5 g/dL 06/05/2024 2:38 PM [facility] Hematocrit 33.4(L) 35.7 - 45.8 % 06/05/2024 2:38 PM [facility] Mean Cell Volume 99.7(H) 82.6 - 94.4 fL 06/05/2024 2:38 PM [facility] Mean Cell Hemoglobin 32.8(H) 27.1 - 32.0 pg 06/05/2024 2:38 PM [facility] Mean Cell Hemoglobin Concentration 32.9 31.7 - 35.0 g/dL 06/05/2024 2:38 PM [facility] Platelet 151 145 - 357 x10(3)/mc L 06/05/2024 2:38 PM [facility] Mean Platelet Volume 8.9 7.6 - 12.9 fL 06/05/2024 2:38 PM [facility] RDW Standard Deviation 44.3 37.0 - 46.0 fL 06/05/2024 2:38 PM [facility] RDW coefficient of variation 12.0 11.5 - 14.1 % 06/05/2024 2:38 PM [facility] NRBC% auto 0.0 % 06/05/2024 2:38 PM [facility] NRBC Absolute <0.01 <0.01 x10(3)/mc L 06/05/2024 2:38 PM [facility] Neutrophil % 62.8 % 06/05/2024 2:38 PM [facility] Neutrophil Absolute (ANC) - Automated 1.92 1.70 - 6.10 x10(3)/mc L 06/05/2024 2:38 PM [facility] Lymph % 20.9 % 06/05/2024 2:38 PM [facility] Lymph Absolute 0.64(L) 0.90 - 3.20 x10(3)/mc L 06/05/2024 2:[address] [facility] Monocyte % 15.0 % 06/05/2024 2:38 PM [facility] Monocyte Absolute 0.46 0.30 - 0.90 x10(3)/mc L 06/05/2024 2:[address] [facility] Eos % 0.3 % 06/05/2024 2:38 PM [facility] Eos Absolute <0.04 0.00 - 0.40 x10(3)/mc L 06/05/2024 2:[address] [facility] Basophil % 0.7 % 06/05/2024 2:38 PM [facility] Baso Absolute <0.04 0.00 - 0.10 x10(3)/mc L 06/05/2024 2:38 PM [facility] Immature Gran % 0.3 % 2:38 PM [facility] Immature Gran Absolute <0.04 0.00 - 0.04 x10(3)/mc L 06/05/2024 2:38 PM [facility] Blood VENOUS BLOOD SPECIMEN / Unknown Venipuncture / Unknown 06/05/2024 1:45 PM EST 06/05/2024 1:59 PM EST Markel Borjas MD HEMATOLOGY ORDERAB LES [facility] [address] documented in this encounter Visit Diagnoses Not [...] RN) documented in this encounter Care Teams Income Tax Analyst Relationship Specialty Start Date End Date Magdalena Acosta MD [address] [place] [address] PCP - General Family Medicine 02/05/23 documented as of this encounter
--- OUTSIDE RECORDS SUMMARY | 2024-06-27 15:17 | XMS_ITS | Encounter Summary ---
[place] [address] Care Team Providers Care Tank Farm Operator Name Role Phone Magdalena Acosta MD Primary Care Provider [phone] Encounter Details Date Type Department Care Team (Latest Contact Info) Description 10/05/2023 10:52 AM EST - 10/05/2023 11:59 PM [facility] Hospital [place] [address] Mixed connective tissue disease Discharge Disposition: Home [...] topically 2 times daily as needed. 10/22/2022 SitedeskTouch Verio test strips Strip USE DAILY 01/03/2022 SitedeskTouch Delica Plus Lancet 33 gauge Misc USE [...] 11/02/2024 12:00 PM EDT Appointment [place] [phone] 11/02/2024 1:00 PM EDT Office [place] [address] Magdalena Peralta MD [facility] [address] RHEUMATOLOGY DEPT [place], [place] [address] 03/01/2025 4:15 PM EDT Office Visit Dermatology at [place] [address] [place] [address] Marek Bonilla MD [address] [place] [address] documented as of this encounter Procedures Procedure [...] PFT FEV1/FVC Pre-BD Z-Score 0 COMPAS PFT QOD63-01 Actual Pre-BD 2.41 % COMPAS PFT FFC97-92 Predicted 1.8 % COMPAS PFT GZR62-76 Pre-BD % of Predicted 134 % COMPAS PFT SVM12-65 Pre-BD Z-Score 0.81 COMPAS PFT DLCO Hb [...] tissue documented in this encounter Care Teams Tank Farm Operator Relationship Specialty Start Date End Date Magdalena Acosta MD [address] [place] [address] PCP - General Family Medicine 02/05/23 documented as of this encounter
--- OUTSIDE RECORDS SUMMARY | 2024-06-27 15:17 | XMS_ITS | Encounter Summary ---
Author Organization [facility] Address [facility] [place] [address] Care Team Providers Care Director Of Income Tax Name Role Phone Magdalena Acosta MD Primary Care Provider [phone] Reason for Visit * Reason Onset Date Comments Medication Refill 05/24/2024 Encounter Details Date Type Department Care Team (Late st Contact Info) Description 05/24/2024 Refill [place] [address] Magdalena Peralta MD [facility] [place] [address] Social History Tobacco Use Types Packs/Day Years [...] 200 mg tablet [facility] - [place], [place] - [address] [facility] [address] [facility] [address] documented in this encounter Plan of Treatment Upcoming Encounters Date Type Department Care Team (Late st Contact Info) Description 11/02/2024 12:00 PM EDT Appointment [place] [address] 11/02/2024 1:00 PM EDT Office [place] [address] Magdalena Peralta MD [facility] [place] [address] 03/01/2025 4:15 PM EDT Office Visit Dermatology at [address] [place] [address] Marek Bonilla MD [address] [facility] [place] [address] documented as of this encounter Visit Diagnoses Not on filedocumented in this encounter Care Teams Director Of Income Tax Relationship Specialty Start Date End Date Magdalena Acosta MD [address] [place] [address] PCP - General Family Medicine 02/05/23 documented as of this encounter
--- OUTSIDE RECORDS SUMMARY | 2024-06-27 15:17 | XMS_ITS | Encounter Summary ---
Author Organization [facility] [place] [address] Care Team Providers Care Escalator Constructor Name Role Phone Magdalena Acosta MD Primary Care Provider [phone] Encounter Details Date Type Department Care Team (Latest Contact Info) Description 06/23/2024 Travel Social History Tobacco Use Types Packs/Day [...] 11/02/2024 12:00 PM EDT [place]oint[place] [address] 11/02/2024 1:00 PM EDT [place] [address] Magdalena Peralta MD [facility] [place] [address] 03/01/2025 4:15 PM EDT Office Visit Dermatology at [place] [address] [place] [address] Marek Bonilla MD [address] [place] [address] documented as of this encounter Visit Diagnoses Not on filedocumented in this encounter Care Teams Escalator Constructor Relationship Specialty Start Date End Date Magdalena Acosta MD [address] [place] [address] PCP - General Family Medicine 02/05/23 documented as of this encounter
--- OUTSIDE RECORDS SUMMARY | 2024-06-27 15:17 | XMS_ITS | Encounter Summary ---
[place] [address] Care Team Providers Care Director Social Name Role Phone Magdalena Acosta MD Primary Care Provider [phone] Encounter Details Date Type Department Care Team (Late st Contact Info) Description 05/18/2024 Interpretation Only [address] [address] Magdalena Acosta MD [address] [place], [place] [id number] Social History Tobacco Use Types Packs/Day Years [...] 11/02/2024 12:00 PM EDT Appointment [place] [address] 11/02/2024 1:00 PM EDT Office [place] [address] Magdalena Peralta MD [facility] [place] [address] 03/01/2025 4:15 PM EDT Office Visit Dermatology at [place] [address] [place] [address] Marek Bonilla MD [address], [place] [address] documented as of this encounter Procedures Procedure Name Priority Date/Time Associated Diagnosis Comments MAMMO SCREENING CAD BILATERAL (CH) Routine 05/18/2024 11:21 AM EDT documented in this encounter Results * MAMMO SCREENING CAD BILATERAL (CH) (05/18/2024 11:21 AM EDT) PT CLASS O RAD ADMITDTTM [id number] RAD PT RAD INFO [id number]^Dave ^Magdalena RAD EXAM DESC MADDSCCH^MG Mammo Digital [...] caregiver that requested your imaging first. ? [address] [address] Narrative 05/18/2024 3:05 PM EDT EXAMINATION: MG [...] adult caregiver that [place] [address] Magdalena Acosta MD [facility] documented in this encounter Visit Diagnoses Not on filedocumented in this encounter Care Teams Director Social Relationship Specialty Start Date End Date Magdalena Acosta MD [address] [place] [address] PCP - General Family Medicine 02/05/23 documented as of this encounter
--- OUTSIDE RECORDS SUMMARY | 2024-06-27 15:17 | XMS_ITS | Clinical Summary ---
Author Organization [facility] Address [facility] [place] [address] Care Team Providers Care Wardrobe Manager Name Role Phone Magdalena Acosta MD Primary Care Provider [phone] Allergies No known active allergies Medications Medication [...] 05/08/2023 Mild coronary artery disease by [facility] [...] Encounters Date Type Department Care Team Description 06/23/2024 2:00 PM EST Office Visit H[place] [address] Markel Borjas MD Chronic idiopathic neutropenia; Anemia, unspecified type 06/23/2024 Travel 06/16/2024 Travel 06/05/2024 2:00 PM EST - 06/05/2024 3:00 PM EST Surgery [facility] [place] [address] Markel Borjas MD (OSC MSURG) BONE MARROW BIOPSY AND ASPIRATION; DIAGNOSTIC (WRVU 1.44) 06/05/2024 1:04 PM EST - 06/05/2024 3:08 PM EST Hospital Encounter [facility]patient [place] [address] Markel Borjas MD Discharge Disposition: Home 06/01/2024 10:00 AM EDT Office [place] [address] Magdalena Peralta MD Mixed connective tissue disease 05/31/2024 Travel 05/24/2024 Refill [place] [address] Magdalena Peralta MD 05/18/2024 Interpretation Only [address] [address] Magdalena Acosta MD 05/18/2024 Interpretation Only [address] [address] Magdalena Acosta MD 05/12/2024 10:00 AM EDT Office Visit Hematology [place] [address] Markel Borjas MD Chronic idiopathic neutropenia 05/12/2024 9:00 AM EDT Laboratory Appointment Lab at [facility] Hematology Oncology [address] [place] [address] S/P TAVR (transcatheter aortic valve replacement); Chronic idiopathic neutropenia 05/12/2024 Travel 05/10/2024 Travel 04/11/2024 Transcribe Orders eDH Incoming Referrals [phone] Consuelo Guerrero DO Anemia, unspecified type from [...] Mass Index 36.43 06/23/2024 1:55 PM EST Plan of Treatment Upcoming Encounters Date Type Department Care Team (Late st Contact Info) Description 11/02/2024 12:00 PM EDT Appointment [place] [address] 11/02/2024 1:00 PM EDT Office [place] [address] Magdalena Peralta MD [facility] [place] [address] 03/01/2025 4:15 PM EDT Office Visit Dermatology at [address] [place] [address] Marek Bonilla MD [address] [place] [address], [place] [address] Health Maintenance Due Date Last Done Comments [...] 05/18/2024, 06/05/2021 Medical Devices Implanted Type Area Dermatology Specialist Device Identifier Shelf Expiration Date Model / Serial / Lot Valve,Aor,Pericar d,Magna,25mm ([id number]) - [id number] Implanted:Qty: 1 on 09/21/2016 by Alirio Esparza MD at [facility] IMPLANTS N/A: Heart DO NOT USE [employer] - [id number] 06/02/2020 [id number] / / [id number] Cable,Blnt,Ss,38i n ([id number]) - [id number] Implanted:Qty: 4 on 09/21/2016 by Alirio Esparza MD at [facility] IMPLANTS N/A: Chest [employer] - [id number] 04/29/2021 [id number] / / [id number] Patch,Cav,Pericar d,2x5cm ([id number]) (Autoreq) - [id number] Implanted:Qty: 1 on 09/21/2016 by Alirio Esparza MD at [facility] IMPLANTS N/A: Heart DO NOT USE [employer] - [id number] 04/21/2018 [id number] / / [id number] Tavr-05/12/2023 Implanted:Qty: 1 on 05/12/2023 by Antelmo Sharma MD Other Heart JAIME LIFESCIENCES MD [employer] - JAIME LI [id number] / [id number] / Description:JAIME LIFESCIE NCES ABBY 3 ULTRA [...] EST Diagnostic Bone Marrow Biopsies & Aspirations (00546) 06/05/2024 2:03 PM EST Anemia, in pt [...] PM EST 06/05/2024 3:07 PM EST Narrative [facility] - 06/06/2024 10:47 AM EST ~3ml Markel Borjas MD PATHOLOGY/CYTOLOGY ORDERABLES Performing Organization Address [facility] de Phone Number [facility] [place] [address] * BM HOLD FLOW/MOLECULAR (06/05/2024 2:22 PM EST) Bone Marrow Non Blood Collection / Unknown 06/05/2024 2:22 PM EST 06/05/2024 3:07 PM EST Markel Borjas MD PATHOLOGY/CYTOLOGY ORDERABLES Performing Organization Address [facility] Co de Phone Number [facility] [place] [address] * Bone Marrow (06/05/2024 2:22 PM EST) Case Report Bone Marrow Patholog y Report ?Case: [id number] ? Authorizing Provider: ??Markel Borjas, MD ?Collected: ? 06/05/2024 1422 ? Ordering Location: ? [facility] ??Received: ?06/05/2024 1508 ? [facility] ? Pathologist: ? [...] CD61 Highlights normal megakaryocytes. 4 1:31 PM [facility] [...] cassette labeled C1. CCP 4 1:31 PM [facility] [...] Bone Marrow Differential Band/Seg 34%; Lymph 8%; [place] 0%; Eos 2%; Baso 1%; Metamyelocyte 13%; Myelocyte 9%; Promyelocyte 2%; Blast 1%; nRBC's 27%; Plasma cell 3% 4 1:31 PM [facility] Result Note Routine 1:31 PM [facility] Peripheral Blood Morphology RBCs: Mildly macrocytic anemia with rare target cells, ovalocytes. WBCs: Unremarkable. Platelets: Rare large platelet form present. 4 1:31 PM [facility] STRUCTURE OF LEFT ILIAC CREST / Unknown 06/05/2024 2:22 PM EST 06/05/2024 3:08 PM EST STRUCTURE OF LEFT ILIAC CREST / Unknown 06/05/2024 2:22 PM EST 06/05/2024 3:08 PM EST STRUCTURE OF LEFT ILIAC CREST / Unknown 06/05/2024 2:22 PM EST 06/05/2024 3:08 PM EST Markel Borjas MD PATHOLOGY/CYTOLOGY ORDERABLES [facility] [place] [address] * Chromosome Analysis, Acquired ([facility]) (06/05/2024 2:22 PM EST) Pathologist [facility] Chromosome, Leukemia/Lymph ananya ([facility]) See Scanned Result 06/14/2024 6:28 PM EST REF [facility] Specimen Condition ([facility]) 06/14/2024 6:28 PM EST REF [facility] Bone Marrow Non Blood Collection / Unknown 06/05/2024 2:22 PM EST 06/05/2024 3:07 PM EST Georges Boucher MD LAB SEND OUT ORDERAB LES REF [facility] [address] [place] [address] * DH HemeSeq (Bone Marrow) (06/05/2024 2:22 PM EST) Pathologist [facility] NGS Report Status Normal 06/13/2024 10:21 AM EST [facility] Bone Marrow Non Blood Collection / Unknown 06/05/2024 2:22 PM EST 06/05/2024 3:07 PM EST Georges Boucher MD MOLECULAR ORDERABLES [facility] [place] [address] * Immunophenotyping Flow Cytometry (06/05/2024 2:22 PM EST) Pathologist [facility] Final Diagnosis - No monotypic B-cell population, no monotypic plasma cell population, no phenotypically abnormal T-cell population or increase in blasts is detected. 06/06/2024 2:08 PM EST [facility] Signing Pathologist This result has been reviewed by Georges Boucher MD on 06/06/24 at 2:08 PM. 06/06/2024 2:08 PM EST [facility] Interpretation CD19+ B-cells show a [...] 06/06/2024 2:08 PM [facility] [place]:Lambda Ratio 1.8 06/06/2024 2:08 PM [facility] [...] CD45, CD117, and HLA-DR. 06/06/2024 2:08 PM EST [facility] Disclaimer Flow analysis is an ancillary study. A definite diagnosis requires correlation with the morphologic features of this process and if necessary, correlation with other ancillary studies like immunohistochemist ry, enzyme cytochemistry and/or cyto/molecular genetics. This test was developed and its performance characteristics determined by the Clinical Flow Cytometry Laboratory at [facility]. It has not been cleared or [...] complexity clinical laboratory testing. 06/06/2024 2:08 PM [facility] Bone Marrow Non Blood Collection / Unknown 06/05/2024 2:22 PM EST 06/05/2024 3:07 PM EST Georges Boucher MD HEMATOLOGY ORDERABLE S [facility] [place] [address] * Myelodysplastic Syndrome (MDS) FISH Panel (06/05/2024 2:22 PM EST) Specimen Condition adequate 06/08/2024 11:23 PM [facility] Indication for Study Anemia, in patient with presumed hx of benign neutropenia 06/08/2024 11:23 PM [facility] FISH Panel Summary NEGATIVE for all FISH Panel markers 06/08/2024 11:23 PM [facility] FISH Results 5q deletion, monosomy 5, 7q deletion, monosomy 7, trisomy 8, and 20q deletion NOT DETECTED. 06/08/2024 11:23 PM [facility] ISCN Nomenclature nuc josselin(D5S23,EGR1)x2[ 200],(D7Z1,J2B278) x2[200],(D8Z2,D20S 108)x2[200] 06/08/2024 11:23 PM [facility] Culture Type Direct [place] 06/08/20 11:23 PM [facility] [...] analysis using probes for CEP7/D7Z1/7p11.1q1 1.1 and P4J451/7q31 loci ([employer] shows 1.5% and 0% of 200 cells with 7q signal deletion (7q-) and chromosome 7 signal loss (monosomy 7) patterns, respectively. These are within acceptable reference limits (7q deletion: 0-6.3%; monosomy 7: 0-4.4%). Thus, there is no evidence for 7q deletion and monosomy 7. Interphase FISH analysis using probes for CEP8/D8Z2/8p11.1q1 1.1 and J93V960/20q12 loci ([employer] shows 0% and [...] The FISH probes are directly-labeled by the carving machine operator ([employer] or [employer]chick) with either a spectrum orange, green, or aqua fluorochrome. Cells are stained with DAPI ([employer]), visualized through fluorescence microscopy, and images captured on the CytoVision software ([employer]). Results are reported based on an International System for Human Cytogenomic Nomenclature. 06/08/2024 11:23 PM EST [facility] Limitations & Disclaimers The FISH test was developed and its performance characteristics were determined by the [facility] ([facility]) Cytogenetics Laboratory [...] not be detected. 06/08/2024 11:23 PM EST [facility] Sign-out by Professional component performed by Lizette Bullock, Ph.D., [facility], [facility] [address], [place], [place] (CLIA #: [id number]). 06/08/2024 11:23 PM EST [facility] Bone Marrow Non Blood Collection / Unknown 06/05/2024 2:22 PM EST 06/05/2024 3:07 PM EST Georges Boucher MD MOLECULAR ORDERABLES [facility] [place] [address] * (ABNORMAL) CBC (with Diff) (06/05/2024 1:45 PM EST) Only the most recent of2 resultswithin the time period is included. [facility] White Blood Cell 3.06(L) 4.00 - 9.50 [...] - 6.10 x10(3)/mc L 06/05/2024 2:38 PM [facility] Lymph % 20.9 % [...] - 0.40 x10(3)/mc L 06/05/2024 2:38 PM [facility] Basophil % 0.7 % [...] EST Markel Borjas MD HEMATOLOGY ORDERAB LES [facility] [place] [address] * DXA Central Spine, Hip, and/or Whole Body (Generic) (05/18/2024 11:21 AM EDT) PT CLASS O RAD ADMITDTTM [id number] [facility] PT [facility] INFO [id number]^Dave ^Magdalena RAD EXAM DESC XDXAC^BD Bone Density [...] by: Rocael Villatoro MD, [facility] ([phone]), at 05/18/2024 11:25 AM Narrative 05/18/2024 11:25 [...] healthcare architect that requested your imaging first. Magdalena Acosta MD IMG DEXA ORDERABLES * MAMMO SCREENING CAD BILATERAL (CH) (05/18/2024 11:21 AM EDT) PT CLASS O RAD ADMITDTTM [id number] RAD PT RAD INFO [id number]^Dave ^Magdalena RAD EXAM DESC MADDSCCH^MG Mammo Digital [...] by: Rocael Villatoro MD, [facility] ([phone]), at 05/18/2024 3:[address] ??[address] Narrative 05/18/2024 3:05 PM EDT EXAMINATION: MG [...] by: Rocael Villatoro MD, [facility]([phone]), at 05/18/2024 3:[address] [address] Magdalena Acosta MD PACS IMAGES * Reticulocyte Count (05/12/2024 8:56 AM EDT) Reticulocyte % 1.20 0.70 - 2.50 % 05/12/2024 9:32 AM EDT [facility] Retic Abs # 0.0397 0.0200 - 0.1100 x10(6)/mcL 05/12/2024 9:32 AM EDT [facility] Immature Retic% 8.1 0.5 - 13.8 % 05/12/2024 9:32 AM EDT [facility] Reticulated Hgb 35.2 29.8 - 39.4 pg 05/12/2024 9:32 AM EDT [facility] Blood VENOUS BLOOD SPECIMEN / Unknown Venipuncture / Unknown 05/12/2024 8:56 AM EDT 05/12/2024 8:56 AM EDT Tova Russell VACCINE CUSTOMER REPRESENTATIVE HEMATOLOGY ORDERABL ES [facility] [place] [address] * (ABNORMAL) Comprehensive metabolic panel Non-fasting (05/12/2024 8:56 AM EDT) Glucose 86 65 - 199 mg/dL 05/12/2024 11:36 AM [facility] Comment:Glucose Concentratio n >=200 mg/dL plus symptoms is consistent with Diabetes Mellitus. Blood Urea Nitrogen 20(H) 8 - 18 mg/dL 05/12/2024 11:36 AM [facility] Creatinine 0.88 0.70 - 1.20 mg/dL 05/12/2024 11:36 AM [facility] Sodium 145 135 - 145 mMol/L 05/12/2024 11:36 AM [facility] Potassium 4.6 3.5 - 5.0 mMol/L 05/12/2024 11:36 AM [facility] Chloride 109(H) 98 - 107 mMol/L 05/12/2024 11:36 AM [facility] Carbon Dioxide 21(L) 22 - 31 mMol/L 05/12/2024 11:36 AM [facility] Anion Gap 15 5 - 15 mMol/L 05/12/2024 11:36 AM [facility] Comment:Not Calculated. Calcium 9.9 8.5 - 10.5 mg/dL 05/12/2024 11:36 AM [facility] Protein, Total 7.3 6.1 - 8.0 g/dL 05/12/2024 11:36 AM [facility] Albumin 4.5 3.2 - 5.2 g/dL 05/12/2024 11:36 AM [facility] Aspartate Aminotransferase 24 <=30 unit/L 05/12/2024 11:36 AM [facility] Alanine Aminotransferase 14 0 - 30 unit/L 05/12/2024 11:36 AM [facility] Alkaline Phosphatase 98 35 - 105 unit/L 05/12/2024 11:36 AM [facility] Bilirubin, Total 0.2 <=1.3 mg/dL 05/12/2024 11:36 AM EDT [facility] Est Glomerular Filtration Rate - Female 72 mL/min/1. 73 m?? 05/12/2024 11:36 AM EDT [facility] Comment: This patient's estimated [...] Fasting Status No 05/12/2024 11:36 AM EDT [facility] Blood VENOUS BLOOD SPECIMEN / Unknown Venipuncture / Unknown 05/12/2024 8:56 AM EDT 05/12/2024 8:56 AM EDT Tova Russell VACCINE CUSTOMER REPRESENTATIVE CHEMISTRY ORDERABLE S [facility] [place] [address] from Last 3 Months Advance Directives * [...] capacity to make decision: Yes Care Teams Wardrobe Manager Relationship Specialty Start Date End Date Magdalena Acosta MD [address] [place] [address] PCP - General Family Medicine 02/05/23
--- OUTSIDE RECORDS SUMMARY | 2024-06-27 15:17 | XMS_ITS | Encounter Summary ---
[place] [address] Care Team Providers Care Rn School Name Role Phone Magdalena Acosta MD Primary Care Provider [phone] Reason for Visit * Reason Onset Date Comments Pre Procedure Call 03/01/2024 DAPT hold for EGD and colo? Encounter Details Date Type Department Care Team (Late st Contact Info) Description 03/01/2024 Telephone Cardiology at [address] [phone] Cynthia Monsalve RN Pre Procedure Call (DAPT hold for EGD and colo?) Social History Tobacco Use Types Packs/Day Years Used Date Smoking Tobacco: Never Smokeless Tobacco: Never Alcohol Use Standard Drinks/Week Comments No 0 (1 standard drink = 0.6 oz pur e alcohol) none [facility] Inpatient Questions Answer Date Recorded [...] safe. Jay Message above left with Yenifer (senior receptionist), who would be leaving this note in patient's chart for providers to schedule patient. No further questions or needs at this time. This nurse stated, note will be placed regarding this call in our chart for patient. Kezia Whitney RN, BSN Ambulatory Cardiology Clinic, [facility] [phone] * Telephone Encounter - Cynthia Monsalve RN [...] 11/02/2024 12:00 PM EDT Appointment Pulmonology at [place] [address] 11/02/2024 1:00 PM EDT Office Visit [place] [address] Magdalena Peralta MD [facility] [place] [address] 03/01/2025 4:15 PM EDT Office Visit Dermatology at [address] [place] [address] Marek Bonilla MD [address], [place] A DERMATOLOGY [place], [place] [address] documented as of this encounter Visit Diagnoses Not on filedocumented in this encounter Care Teams Rn School Relationship Specialty Start Date End Date Magdalena Acosta MD [address] [place] [address] PCP - General Family Medicine 02/05/23 documented as of this encounter
--- OUTSIDE RECORDS SUMMARY | 2024-06-27 15:17 | XMS_ITS | Encounter Summary ---
Author Organization [facility] [place] [address] Care Team Providers Care Script Artist Name Role Phone Magdalena Acosta MD Primary Care Provider [phone] Encounter Details Date Type Department Care Team [...] Appointment [place] [address] 11/02/2024 1:00 PM EDT Office Visit [place] [address] Magdalena Peralta MD [facility] [place] [address] 03/01/2025 4:15 PM EDT Office Visit Dermatology at [place] [address] [place] [address] Marek Bonilla MD [address], [place] [address] documented as of this encounter Visit Diagnoses Not on filedocumented in this encounter Care Teams Script Artist Relationship Specialty Start Date End Date Magdalena Acosta MD [address] [place] [address] PCP - General Family Medicine 02/05/23 documented as of this encounter
--- OUTSIDE RECORDS SUMMARY | 2024-06-27 15:17 | XMS_ITS | Encounter Summary ---
Author Organization [facility] Address [facility] [place] [address] Care Team Providers Care Manager Willow Name Role Phone Magdalena Acosta MD Primary Care Provider [phone] Encounter Details Date Type Department Care Team (Late st Contact Info) Description 06/01/2024 10:00 AM EDT Office [place] [address] Magdalena Peralta MD [facility] [address] [place] [address] Mixed connective tissue disease Social History Tobacco Use Types Packs/Day Years Used Date Smoking Tobacco: Never Smokeless Tobacco: Never Alcohol Use Standard Drinks/Week Comments No 0 (1 standard drink = 0.6 oz pur e alcohol) none [facility] Inpatient Questions Answer Date Recorded Does Anyone [...] through Care Everywhere. * Knee Arthritis: Exercises (Maori) documented in this encounter Progress Notes * [...] 1:5120 speckled; VIC negative; Myositis panel with FIELD CONTROL INSPECTOR ab 149.1 (positive); Anti U1RNP IgG 119; [...] that osteoporosis is not an indication for termination clerk systemic steroid therapy as it is not [...] Dr. Roma Peralta MD Rheumatology Fellow Pager: [phone] * Kuldeep Brandon MD - 06/01/2024 10:00 [...] and therapeutic plans. Kuldeep Brandon MD Staff Transformer Assembler documented in this encounter Plan of Treatment Upcoming Encounters Date Type Department Care Team (Late st Contact Info) Description 11/02/2024 12:00 PM EDT [place] [address] 11/02/2024 1:00 PM EDT Office [place] [address] Magdalena Peralta MD [facility] [place] [address] 03/01/2025 4:15 PM EDT Office Visit Dermatology at [address] [address] Marek Bonilla MD [address], [place] [address] Scheduled Orders Name Type Priority Associated Diagnoses Orde r Schedule Common Pulmonary Function Test PFT Routine Mixed connective tissue disease Expected: 10/31/2024, Expires: 06/01/2025 documented as of this encounter Visit Diagnoses Diagnosis Mixed connective tissue disease Other specified diffuse disease of connective tissue documented in this encounter Care Teams Manager Willow Relationship Specialty Start Date End Date Magdalena Acosta MD [address] [place] [address] PCP - General Family Medicine 02/05/23 documented as of this encounter
--- OUTSIDE RECORDS SUMMARY | 2024-06-27 15:17 | XMS_ITS | Encounter Summary ---
Author Organization [facility] [place] [address] Care Team Providers Care Foam Dispenser Name Role Phone Magdalena Acosta MD Primary Care Provider [phone] Reason for Referral * Diagnostic Test (Routine) - New Request Specialty Diagnoses / Procedures Referred By Contac t Referred To Contact Cardiology Diagnoses S/P TAVR (transcatheter aortic valve replacement) Procedures Echocardiogram Transthoracic Antelmo Sharma MD [facility] [place] [address] [facility] [place] [address] Referral ID Status Reason Start Date Expiration Date Visits Requested Visits Authorized [id number] New Request Specialty Service Requested 12/16/2023 12/15/2024 1 1 Encounter Details Date Type Department Care Team (Late st Contact Info) Description 12/16/2023 Orders Only Cardiology at [address] [address] Antelmo Sharma MD [facility] [place] [address] S/P TAVR (transcatheter aortic valve [...] 11/02/2024 12:00 PM EDT Appointment [place] [address] 11/02/2024 1:00 PM EDT Office [place] [phone] Magdalena Peralta MD [facility] [place] [address] 03/01/2025 4:15 PM EDT Office Visit Dermatology at [place] [address] [place] [address] Marek Bonilla MD [address] [facility], [place] [address] Scheduled Orders Name Type Priority Associated Diagnoses Order Schedule Echocardiogram Transthoracic Echocardiography Routine S/P TAVR (transcatheter aortic valve replacement) Expected: 12/16/2023 (Approximate), Expires: 06/17/2024 EKG 12 Lead ECG Routine S/P TAVR (transcatheter aortic valve replacement) Expected: 12/16/2023 (Approximate), Expires: 06/17/2024 documented as of this encounter Visit Diagnoses Diagnosis S/P TAVR (transcatheter aortic valve replacement) documented in this encounter Care Teams Foam Dispenser Relationship Specialty Start Date End Date Magdalena Acosta MD [address] [place] [address] PCP - General Family Medicine 02/05/23 documented as of this encounter
--- OUTSIDE RECORDS SUMMARY | 2024-06-27 15:17 | XMS_ITS | Encounter Summary ---
Author Organization [facility] [place] [address] Care Team Providers Care Finance Mgr Name Role Phone Magdalena Acosta MD Primary Care Provider [phone] Encounter Details Date Type Department Care Team [...] 11/02/2024 12:00 PM EDT [place] [address] 11/02/2024 1:00 PM EDT [place] [address] Magdalena Peralta MD [facility] [place] [address] 03/01/2025 4:15 PM EDT Office Visit Dermatology at [place] [address] [place] [address] Marek Bonilla MD [address], [place] [address] documented as of this encounter Visit Diagnoses Not on filedocumented in this encounter Care Teams Finance Mgr Relationship Specialty Start Date End Date Magdalena Acosta MD [address] [place] [address] PCP - General Family Medicine 02/05/23 documented as of this encounter
--- OUTSIDE RECORDS SUMMARY | 2024-06-27 15:17 | XMS_ITS | Encounter Summary ---
Author Organization [facility] [place] [address] Care Team Providers Care Slubber Operator Name Role Phone Magdalena Acosta MD Primary Care Provider [phone] Encounter Details Date Type Department Care Team [...] 11/02/2024 12:00 PM EDT Appointment [place] [phone] 11/02/2024 1:00 PM EDT Office [place] [phone] Magdalena Peralta MD [facility] [place] [address] 03/01/2025 4:15 PM EDT Office Visit Dermatology at [place] [address] [place] [address] Marek Bonilla MD [address], [place] [address] documented as of this encounter Visit Diagnoses Not on filedocumented in this encounter Care Teams Slubber Operator Relationship Specialty Start Date End Date Magdalena Acosta MD [address] [place] [address] PCP - General Family Medicine 02/05/23 documented as of this encounter
--- OUTSIDE RECORDS SUMMARY | 2024-06-27 15:17 | XMS_ITS | Encounter Summary ---
Author Organization [place] [address] Care Team Providers Care Brake Drum Lathe Operator Name Role Phone Magdalena Acosta MD Primary Care Provider [phone] Encounter Details Date Type Department Care Team (Latest Contact Info) Description 06/05/2024 1:04 PM EST - 06/05/2024 3:08 PM EST Hospital Encounter [place] [address] Markel Borjas MD [facility] [address] HEMATOLOGY [place] [address] Discharge Disposition: Home Social History Tobacco Use [...] 5pm or on a weekend: Call the [facility] conche operator at and ask for the physician law office receptionist covering for your doctor. Instructions following sedation [...] drainage occurs, [place] [address] [email or web address] documented in this encounter Medications at [...] Verio test strips Strip USE DAILY 01/03/2022 AppLiftTouch Delica Plus Lancet 33 gauge Misc USE [...] 11/02/2024 12:00 PM EDT [place] [address] 11/02/2024 1:00 PM EDT Office [place] [phone] Magdalena Peralta MD [facility] [place] [address] 03/01/2025 4:15 PM EDT Office Visit Dermatology at [place] [address] [place] [phone] Marek Bonilla MD [address], [place] [address] documented as of this encounter Procedures Procedure [...] EST Diagnostic Bone Marrow Biopsies & Aspirations (30926) 06/05/2024 2:03 PM EST Anemia, in pt with longstanding neutropenia CBC (WITH DIFF) Routine 06/05/2024 1:45 PM EST ([facility]) BONE MARROW BIOPSY AND ASPIRATION; DIAGNOSTIC Routine 06/05/2024 1:07 PM EST documented in this encounter Results * Myelodysplastic Syndrome (MDS) FISH Panel (06/05/2024 2:22 PM EST) Specimen Condition adequate 06/08/2024 11:23 PM [facility] Indication for Study Anemia, in patient with presumed hx of benign neutropenia 06/08/2024 11:23 PM [facility] FISH Panel Summary NEGATIVE for all FISH Panel markers 06/08/2024 11:23 PM [facility] FISH Results 5q deletion, monosomy 5, 7q deletion, monosomy 7, trisomy 8, and 20q deletion NOT DETECTED. 06/08/2024 11:23 PM [facility] ISCN Nomenclature nuc josselin(D5S23,EGR1)x2[ 200],(D7Z1,P1N451) x2[200],(D8Z2,D20S 108)x2[200] 06/08/2024 11:23 PM [facility] Culture Type Direct [place] 06/08/20 24 11:23 PM [facility] FISH Method Interphase 06/08/2024 11:23 PM [facility] Interpretation Interphase FISH analysis using probes [...] analysis using probes for CEP7/D7Z1/7p11.1q1 1.1 and I0S921/7q31 loci ([employer] shows 1.5% and 0% of 200 cells with 7q signal deletion (7q-) and chromosome 7 signal loss (monosomy 7) patterns, respectively. These are within acceptable reference limits (7q deletion: 0-6.3%; monosomy 7: 0-4.4%). Thus, there is no evidence for 7q deletion and monosomy 7. Interphase FISH analysis using probes for CEP8/D8Z2/8p11.1q1 1.1 and S87U085/20q12 loci ([employer] shows 0% and 2.5% of 200 cells with a chromosome 8 signal gain and 20q signal deletion patterns, respectively. These are within acceptable reference limits (trisomy 8: 0-5.1%; 20q deletion: 0-6.3%). Thus, there is no evidence for trisomy 8 and 20q deletion. Correlation with clinical and pathological studies is suggested. 06/08/2024 11:23 PM [facility] Technical Methods FISH is performed on [...] The FISH probes are directly-labeled by the correctional officer chief (Issue or Kitchensurfing) with either a spectrum orange, green, or aqua fluorochrome. Cells are stained with DAPI (Issue), visualized through fluorescence microscopy, and images captured on the CytoVision software (JDCPhosphate). Results are reported based on an International System for Human Cytogenomic Nomenclature. 06/08/2024 11:23 PM [facility] Limitations & Disclaimers The FISH test was developed and its performance characteristics were determined by the [facility] as required by [...] the test's accuracy and precision. The [facility] is certified under the CLIA'88 as qualified to perform high complexity clinical laboratory testing. Chromosome alterations outside the regions complementary to these DNA FISH probes will not be detected. 06/08/2024 11:23 PM EST [facility] Sign-out by Professional component performed by Lizette Bullock, Ph.D., [facility], [address], [place], [place] (CLIA #: [id number]). 06/08/2024 11:23 PM EST [facility] Bone Marrow Non Blood Collection / Unknown 06/05/2024 2:22 PM EST 06/05/2024 3:07 PM EST Georges Boucher MD MOLECULAR ORDERABLES Performing Organization Address City/[facility]/ZIP Co de Phone Number [facility] [place] [address] * Chromosome Analysis, Acquired ([facility]) (06/05/2024 2:22 PM EST) Pathologist [facility] Chromosome, Leukemia/Lymph ananya ([facility]) See Scanned Result 06/14/2024 6:28 PM EST REF [facility] Specimen Condition ([facility]) 06/14/2024 6:28 PM EST REF [facility] Bone Marrow Non Blood Collection / Unknown 06/05/2024 2:22 PM EST 06/05/2024 3:07 PM EST Georges Boucher MD LAB SEND OUT ORDERAB LES REF [facility] [address] [place] [address] * HemeSeq (Bone Marrow) (06/05/2024 2:22 PM EST) NGS Report Status Normal 06/13/2024 10:[address] [facility] Bone Marrow Non Blood Collection / Unknown 06/05/2024 2:22 PM EST 06/05/2024 3:07 PM EST Georges Boucher MD MOLECULAR ORDERABLES [facility] [place] [address] * Immunophenotyping Flow Cytometry (06/05/2024 2:22 PM EST) Final Diagnosis - No monotypic B-cell population, no monotypic plasma cell population, no phenotypically abnormal T-cell population or increase in blasts is detected. 06/06/2024 2:08 PM [facility] Signing Pathologist This result has been reviewed by Georgse Boucher MD on 06/06/24 at 2:08 PM. 06/06/2024 2:08 PM [facility] Interpretation CD19+ B-cells show a polytypic [...] significant blast populations identified. 06/06/2024 2:08 PM [facility] Lymphocyte % 4.7 % 06/06/2024 2:08 PM [facility] Monocyte % 3.0 % 06/06/2024 2:08 PM [facility] Granulocyte % 76.0 % 06/06/2024 2:08 PM [facility] CD45 DIM % 0.9 % 06/06/2024 2:08 PM [facility] CD38 Bright/CD138+ 0.2 % 06/06/2024 2:08 PM [facility] CD3+ % 70.0 % 06/06/2024 2:08 PM [facility] CD19+ % 17.0 % 06/06/2024 2:08 PM [facility] CD56+ % 12.0 % 06/06/2024 2:08 PM [facility] B-Cell:T-Cell Ratio 0.2 06/06/2024 2:08 PM [facility] [place]:Lambda Ratio 1.8 06/06/2024 2:08 PM [facility] CD4:CD8 Ratio 1.6 06/06/2024 2:08 PM [facility] Specimen Processing Cells for immunophenotypic analysis were derived from bone marrow. The following markers were assessed: CD2, CD3, CD4, CD5, CD7, CD8, CD10, CD19, CD20, CD38, CD45, CD56, CD138, kappa light chain, (c)kappa light chain, lambda light chain, (c)lambda light chain,CD13, CD14, CD34, CD45, CD117, and HLA-DR. 06/06/2024 2:08 PM [facility] Disclaimer Flow analysis is an ancillary [...] complexity clinical laboratory testing. 06/06/2024 2:08 PM [facility] Bone Marrow Non Blood Collection / Unknown 06/05/2024 2:22 PM EST 06/05/2024 3:07 PM EST Georges Boucher MD HEMATOLOGY ORDERABLE S Performing Organization Address [facility] [place] [address] * BM HOLD CYTOGENETICS/FISH (06/05/2024 2:22 PM EST) Bone Marrow Non Blood Collection / Unknown 06/05/2024 2:22 PM EST 06/05/2024 3:07 PM EST Narrative [facility] - 06/06/2024 10:47 AM EST ~3ml Markel Borjas MD PATHOLOGY/CYTOLOGY ORDERABLES Performing Organization Address [facility] [place] [address] * BM HOLD FLOW/MOLECULAR (06/05/2024 2:22 PM EST) Bone Marrow Non Blood Collection / Unknown 06/05/2024 2:22 PM EST 06/05/2024 3:07 PM EST Markel Borjas MD PATHOLOGY/CYTOLOGY ORDERABLES Performing Organization Address [facility] de Phone Number [facility] [place] [address] * Bone Marrow (06/05/2024 2:22 PM EST) Case Report Bone Marrow Patholog y Report ?Case: [id number] ? Authorizing Provider: ??Markel Borjas MD ?Collected: ? 06/05/2024 1422 ? Ordering Location: ? [facility] ??Received: ?06/05/2024 1508 ? [facility] ? Pathologist: ? Citlaly, Georges L, MD ? Specimens: ?? A) - Iliac Crest, Left ? B) - Iliac Crest, Left ? C) - Iliac Crest, Left ? 11/21/202 4 1:31 PM EST [facility] Integrated Results Bone marrow [...] likely. Clinical correlation is recommended. 1:31 PM [facility] Addendum electronically signed by Georges Boucher MD on 06/22/2024 at 1:31 PM Final Diagnosis BONE MARROW (BLOOD FILM, ASPIRATE, TOUCH PREP, CORE & CLOT SECTIONS): 1. Normocellular bone marrow with maturing trilineage hematopoiesis. No overt dysplasia or increased blasts. 2. Ancillary studies pending. 1:31 PM [facility] Discussion The patient's histor y of [...] Final integrated report to follow. 1:31 PM [facility] Additional Studies Task ID IHC/Special Stains Result B1-3 Myeloperoxidase Highlights granulocytic precursors. B1-4 CD34 Highlights rare blasts (<5% of cells) B1-5 CD117 Highlights rare mast cells. B1-6 E-Cadherin Highlights normal erythroid precursors. B1-7 CD61 Highlights normal megakaryocytes. 4 1:31 PM [facility] Clinical Information Anemia, in patient with presumed hx of benign neutropenia 4 1:31 PM [facility] Gross Description A. Iliac Crest, Left. [...] in toto in 1 cassette labeled C1. [facility] 1:31 PM [facility] Disclaimer(s) Formalin-fixed, paraffin-embedded tissue sections are [...] criteria and other diagnostic tests. 1:31 PM [facility] Bone Marrow Aspirate Adequacy: Smear/touch preparations [...] stores present, no ring sideroblasts. 1:31 PM [facility] Bone Marrow Biopsy and/or Clot Core [...] Trabecular bone normal for age. 1:31 PM EST [facility] Bone Marrow Differential Band/Seg 34%; Lymph 8%; Custer 0%; Eos 2%; Baso 1%; Metamyelocyte 13%; Myelocyte 9%; Promyelocyte 2%; Blast 1%; nRBC's 27%; Plasma cell 3% 4 1:31 PM EST [facility] Result Note Routine 1:31 PM [facility] Peripheral Blood Morphology RBCs: Mildly macrocytic anemia with rare target cells, ovalocytes. WBCs: Unremarkable. Platelets: Rare large platelet form present. 1:31 PM [facility] STRUCTURE OF LEFT ILIAC CREST / Unknown 06/05/2024 2:22 PM EST 06/05/2024 3:08 PM EST STRUCTURE OF LEFT ILIAC CREST / Unknown 06/05/2024 2:22 PM EST 06/05/2024 3:08 PM EST STRUCTURE OF LEFT ILIAC CREST / Unknown 06/05/2024 2:22 PM EST 06/05/2024 3:08 PM EST Markel Borjas MD PATHOLOGY/CYTOLOGY ORDERABLES [facility] [place] [address] * (ABNORMAL) CBC (with Diff) (06/05/2024 1:45 PM EST) White Blood Cell 3.06(L) 4.00 - 9.50 x10(3)/mc L 06/05/2024 2:38 PM EST [facility] Red Blood Cell 3.35(L) 4.00 - 5.21 x10(6)/mc L 06/05/2024 2:38 PM [facility] Hemoglobin 11.0(L) 11.7 - 15.5 g/dL 06/05/2024 2:38 PM [facility] Hematocrit 33.4(L) 35.7 - 45.8 % 06/05/2024 2:38 PM [facility] Mean Cell Volume 99.7(H) 82.6 - 94.4 fL 06/05/2024 2:38 PM [facility] Mean Cell Hemoglobin 32.8(H) 27.1 - 32.0 pg 06/05/2024 2:38 PM [facility] Mean Cell Hemoglobin Concentration 32.9 31.7 - 35.0 g/dL 06/05/2024 2:38 PM [facility] Platelet 151 145 - 357 x10(3)/mc L 06/05/2024 2:38 PM [facility] Mean Platelet Volume 8.9 7.6 - 12.9 fL 06/05/2024 2:38 PM [facility] RDW Standard Deviation 44.3 37.0 - 46.0 fL 06/05/2024 2:38 PM [facility] RDW coefficient of variation 12.0 11.5 - 14.1 % 06/05/2024 2:38 PM [facility] NRBC% auto 0.0 % 06/05/2024 2:38 PM [facility] NRBC Absolute <0.01 <0.01 x10(3)/mc L 06/05/2024 2:38 PM [facility] Neutrophil % 62.8 % 06/05/2024 2:38 PM [facility] Neutrophil Absolute (ANC) - Automated 1.92 1.70 - 6.10 x10(3)/mc L 06/05/2024 2:38 PM [facility] Lymph % 20.9 % 06/05/2024 2:38 PM [facility] Lymph Absolute 0.64(L) 0.90 - 3.20 x10(3)/mc L 06/05/2024 2:38 PM EST [facility] Monocyte % 15.0 % 06/05/2024 2:38 PM EST [facility] Monocyte Absolute 0.46 0.30 - 0.90 x10(3)/mc L 06/05/2024 2:38 PM EST [facility] Eos % 0.3 % 06/05/2024 2:38 PM EST [facility] Eos Absolute <0.04 0.00 - 0.40 x10(3)/mc L 06/05/2024 2:38 PM EST [facility] Basophil % 0.7 % 06/05/2024 2:38 PM [facility] Baso Absolute <0.04 0.00 - 0.10 x10(3)/mc L 06/05/2024 2:38 PM EST [facility] Immature Gran % 0.3 % 2:38 PM [facility] Immature Gran Absolute <0.04 0.00 - 0.04 x10(3)/mc L 06/05/2024 2:38 PM [facility] Blood VENOUS BLOOD SPECIMEN / Unknown Venipuncture / Unknown 06/05/2024 1:45 PM EST 06/05/2024 1:59 PM EST Markel Borjas MD HEMATOLOGY ORDERAB LES Performing Organization Address City/State/[facility] Co de Phone Number [facility] [place] [address] documented in this encounter Visit Diagnoses Not [...] RN) documented in this encounter Care Teams Brake Drum Lathe Operator Relationship Specialty Start Date End Date Magdalena Acosta MD [address] [place] [id number] PCP - General Family Medicine 02/05/23 documented as of this encounter
--- OUTSIDE RECORDS SUMMARY | 2024-06-27 15:17 | XMS_ITS | Encounter Summary ---
Author Organization [facility] [place] [address] Care Team Providers Care Boat Worker Name Role Phone Magdalena Acosta MD Primary Care Provider [phone] Reason for Visit * Reason Comments Coronary Artery Disease Hypertension Aortic Stenosis Encounter Details Date Type Department Care Team (Latest Contact Info) Description 07/20/2023 4:40 PM EST TH Visit (TeleHealth) Cardiology at [address] [address] Jay Maza PA [facility] [place] [address] HFrEF (heart failure with reduced ejection fraction); [...] - 07/20/2023 4:40 PM EST [facility] Interventional Cardiology CARDIOLOGY [...] lieu of an in person office visit. Sales Representative: Antelmo Sharma MD ([facility]) Maria Luz Mejia MD ([facility] / [facility] [...] fraction I35.0 Mild coronary artery disease by [facility] 11/09/2022 I25.10 Heart failure [...] notable for coronary artery protection given low [id number] distance. There was no obstruction post Valve [...] the next day with NSR with stable OH/QRS intervals. Hemoglobin 7.8 [...] arms and wrists. Successful right transfemoral TAVR [id number] with a 23 mm Lai 3 THV. [...] leads Confirmed by MD Harshil, Haris Bell ([id number]) on 05/10/2023 8:11:46 AM Cardiac Cath 11/09/2022 [...] in chart review and direct patient contact. [id number] 0-5min [id number] 6-10min [id number] 11-15min [id number] 16-20min x [id number] 21-30min [id number] 31-40min [id number] 40+ min Jay Maza PA-C Interventional Cardiology [employer] [facility] Pager [phone] documented in this encounter Plan of Treatment Upcoming Encounters Date Type Department Care Team (Late st Contact Info) Description 11/02/2024 12:00 PM EDT Appointment [place] [address] 11/02/2024 1:00 PM EDT Office [place] [phone] Magdalena Peralta MD [facility] [place] [address] 03/01/2025 4:15 PM EDT Office Visit Dermatology at [place] [address] [place] [phone] Marek Bonilla MD [address] [place] [address] documented as of this encounter Visit Diagnoses Diagnosis HFrEF (heart failure with reduced ejection fraction) Hypertension, unspecified type Aortic valve stenosis, etiology of cardiac valve disease unspecified documented in this encounter Care Teams Boat Worker Relationship Specialty Start Date End Date Magdalena Acosta MD [address] [place] [address] PCP - General Family Medicine 02/05/23 documented as of this encounter
--- OUTSIDE RECORDS SUMMARY | 2024-06-27 15:17 | XMS_ITS | Encounter Summary ---
Author Organization [facility] Address [facility] [place] [address] Care Team Providers Care Signal Intelligence/Electronic Warfare Name Role Phone Magdalena Acosta MD Primary Care Provider [phone] Reason for Visit * Reason Comments Follow-up * Consultation (Routine) - Closed Specialty Diagnoses / Procedures Referred By Contac t Referred To Contact Hematology and Oncology Diagnoses Anemia, unspecified type Consuelo Guerrero, DO [address] [place] [address] [place] [address] [facility] [address] [place] [address] Referral ID Status Reason Start Date Expiration Date V isits Requested Visits Authorized [id number] Closed Consult, Test & Treat 04/11/2024 04/11/2025 1 1 Encounter Details Date Type Department Care Team (Late st Contact Info) Description 05/12/2024 10:00 AM EDT Office Visit [place] [address] Markel Borjas MD [facility] [address] [place] [address] Chronic idiopathic neutropenia Social History [...] 05/12/2024 10:00 AM EDT Hematology Outpatient Clinic [facility] Hematology Outpatient Consult Note CC: [id number] [...] TOUCH PREP, CLOT SECTION, CORE BIOPSY); [OSR# [id number], COLLECTED 06/23/2016, 19 SLIDES]: 1. 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 pantoprazole EC (Protonix) 40 [...] intact. Extremities: No edema. Labs: Hgb= 11.7 Eheg=447 ANC= 2.5 Assessment: 60 year-old woman found [...] 11/02/2024 12:00 PM EDT Appoint[place] [phone] 11/02/2024 1:00 PM EDT Office [place] [address] Magdalena Peralta MD [facility] [place] [address] 03/01/2025 4:15 PM EDT Office Visit Dermatology at [place] [address] [place] [address] Marek Bonilla MD [address] [place] [address] documented as of this encounter Results * [...] EDT 05/12/2024 8:56 AM EDT Tova Russell UNDERCOVER AGENT HEMATOLOGY ORDERABL ES [facility] [place] [address] * (ABNORMAL) Comprehensive metabolic panel Non-fasting (05/12/2024 8:56 AM EDT) Glucose 86 65 - 199 mg/dL 05/12/2024 11:[address] [facility] Comment:Glucose Concentratio n >=200 mg/dL plus symptoms is consistent with Diabetes Mellitus. Blood Urea Nitrogen 20(H) 8 - 18 mg/dL 05/12/2024 11:[address] [facility] Creatinine 0.88 0.70 - 1.20 mg/dL 05/12/2024 11:36 AM [facility] Sodium 145 135 - 145 mMol/L 05/12/2024 11:36 AM [facility] Potassium 4.6 3.5 - 5.0 mMol/L 05/12/2024 11:36 AM [facility] Chloride 109(H) 98 - 107 [...] Fasting Status No 05/12/2024 11:[address] [facility] Blood VENOUS BLOOD SPECIMEN / Unknown Venipuncture / Unknown 05/12/2024 8:56 AM EDT 05/12/2024 8:56 AM EDT Tova Russell UNDERCOVER AGENT CHEMISTRY ORDERABLE S [facility] [place] [address] * (ABNORMAL) CBC (with Diff) (05/12/2024 8:56 AM EDT) White Blood Cell 3.47(L) 4.00 - 9.50 x10(3)/mc L 05/12/2024 9:[address] [facility] Red Blood Cell 3.31(L) 4.00 - 5.21 x10(6)/mc L 05/12/2024 9:32 AM [facility] Hemoglobin 11.1(L) 11.7 - 15.5 g/dL 05/12/2024 9:32 AM [facility] Hematocrit 33.2(L) 35.7 - 45.8 % 05/12/2024 9:32 AM [facility] Mean Cell Volume 100.3(H) 82.6 - 94.4 fL 05/12/2024 9:32 AM [facility] Mean Cell Hemoglobin 33.5(H) 27.1 - 32.0 pg 05/12/2024 9:32 AM [facility] Mean Cell Hemoglobin Concentration 33.4 31.7 - 35.0 g/dL 05/12/2024 9:32 AM [facility] Platelet 142(L) 145 - 357 x10(3)/mc L 05/12/2024 9:32 AM [facility] Mean Platelet Volume 8.7 7.6 - 12.9 fL 05/12/2024 9:32 AM [facility] RDW Standard Deviation 44.4 37.0 - 46.0 fL 05/12/2024 9:32 AM [facility] RDW coefficient of variation 12.0 11.5 - 14.1 % 05/12/2024 9:32 AM [facility] NRBC% auto 0.0 % 05/12/2024 [...] 0.10 x10(3)/mc L 05/12/2024 9:[address] [facility] Immature Gran % 0.3 % 9:[address] [facility] Immature Gran Absolute <0.04 0.00 - 0.04 x10(3)/mc L 05/12/2024 9:[address] [facility] Blood VENOUS BLOOD SPECIMEN / Unknown Venipuncture / Unknown 05/12/2024 8:56 AM EDT 05/12/2024 8:56 AM EDT Tova Russell UNDERCOVER AGENT HEMATOLOGY ORDERABL ES [facility] [place] [address] documented in this encounter Visit Diagnoses Diagnosis Chronic idiopathic neutropenia Other neutropenia documented in this encounter Care Teams Signal Intelligence/Electronic Warfare Relationship Specialty Start Date End Date Magdalena Acosta MD [address] [place] [address] PCP - General Family Medicine 02/05/23 documented as of this encounter
--- OUTSIDE RECORDS SUMMARY | 2024-06-27 15:17 | XMS_ITS | Encounter Summary ---
Author Organization [facility] [place] [address] Care Team Providers Care Tie In Machine Operator Name Role Phone Magdalena Acosta MD Primary Care Provider [phone] Encounter Details Date Type Department Care Team (Late st Contact Info) Description 12/02/2023 11:15 AM EDT Office [place] [address] Magdalena Peralta MD [facility] [place] [address] Mixed connective tissue disease Social History Tobacco [...] 1:5120 speckled; VIC negative; Myositis panel with NET FISHER ab 149.1 (positive); Anti U1RNP IgG 119; [...] list of questions that she sent via [facility] ahead of her visit, which we [...] exposure. She has an appointment with her Odd Shoe Examiner scheduled in January. (Dr Bonilla in [place]) ROS (positives in bold): Gen: no fevers, [...] but I encouraged her to contact her Odd Shoe Examiner to see if she could have her [...] Dr. Tanisha Peralta MD Rheumatology Fellow Pager: [phone] * Federico Yee MD - 12/02/2023 11:15 [...] PM EDT Appointment [place] [address] 11/02/2024 1:00 PM EDT Office Visit Rheumatology at [place] [phone] Magdalena Peralta MD [facility] [place] [address] 03/01/2025 4:15 PM EDT Office Visit Dermatology at [address] [address] Marek Bonilla MD [address] [place] [address], [facility] [place] [address] Scheduled Orders Name Type Priority Associated Diagnoses Orde r Schedule EKG 12 Lead ECG Routine Mixed connective tissue disease Expected: 12/02/2023, Expires: 06/03/2024 documented as of this encounter Visit Diagnoses Diagnosis Mixed connective tissue disease Other specified diffuse disease of connective tissue documented in this encounter Care Teams Tie In Machine Operator Relationship Specialty Start Date End Date Magdalena Acosta MD [address] [place] [address] PCP - General Family Medicine 02/05/23 documented as of this encounter
--- OUTSIDE RECORDS SUMMARY | 2024-06-27 15:18 | XMS_ITS | Encounter Summary ---
Author Organization [facility] [place] [address] Care Team Providers Care Laser Beam Trim Operator Name Role Phone Magdalena Acosta MD Primary Care Provider [phone] Encounter Details Date Type Department Care Team (Late st Contact Info) Description 07/08/2023 10:15 AM EST Office Visit Cardiology at [address] [phone] Severe aortic stenosis Social History Tobacco Use [...] 11/02/2024 12:00 PM EDT Appointment [place] [address] 11/02/2024 1:00 PM EDT Office [place] [phone] Magdalena Peralta MD [facility] [place] [address] 03/01/2025 4:15 PM EDT Office Visit Dermatology at [place] [address] [place] [phone] Marek Bonilla MD [address] [place] [address] documented as of this encounter Procedures Procedure [...] (Bezet) 449 ms MUSE SYSTEM Calculated P [place] 66 degrees MUSE SYSTEM Calculated R [place] 60 degrees MUSE SYSTEM Calculated T [place] 53 degrees MUSE SYSTEM INTERPRETATION Normal sinus rhythm Minimal voltage criteria for LVH, may be normal variant ( Sokolow-Orozco ) ST & T wave abnormality, consider lateral ischemia ??vs. repolarization abnormality from LVH Abnormal ECG When compared with ECG of 13-MAY-2023 09:22, Premature ventricular complexes are no longer Present Minimal criteria for Septal infarct are no longer Present Confirmed by Maxx Best ([id number]) on 07/09/2023 10:07:22 AM MUSE SYSTEM 07/08/2023 10:2 7 AM EST 07/09/2023 10:07 AM EST Brody Kaplan APRN ECG ORDERABLES [employer] documented in this encounter Visit Diagnoses Diagnosis Severe aortic stenosis Aortic valve disorders documented in this encounter Care Teams Laser Beam Trim Operator Relationship Specialty Start Date End Date Magdalena Acosta MD [address] [place] [address] PCP - General Family Medicine 02/05/23 documented as of this encounter
--- OUTSIDE RECORDS SUMMARY | 2024-06-27 15:18 | XMS_ITS | Encounter Summary ---
Author Organization [facility] [place] [address] Care Team Providers Care Environmental Health Aide Name Role Phone Magdalena Acosta MD [...] 11/02/2024 12:00 PM EDT Appoint[place] [phone] 11/02/2024 1:00 PM EDT Office [place] [address] Magdalena Peralta MD [facility] [address] 03/01/2025 4:15 PM EDT Office Visit Dermatology at [place] [address] [place] [address] Marek Bonilla MD [address], [address] [place] [address] documented as of this encounter Visit Diagnoses Not on filedocumented in this encounter Care Teams Environmental Health Aide Relationship Specialty Start Date End Date Magdalena Acosta MD [address] [place] [address] PCP - General Family Medicine 02/05/23 documented as of this encounter
--- OUTSIDE RECORDS SUMMARY | 2024-06-27 15:18 | XMS_ITS | Encounter Summary ---
Author Organization [facility] [place] [address] Care Team Providers Care Special Systems Technician Name Role Phone Magdalena Acosta MD Primary Care Provider [phone] Reason for Referral * Diagnostic Test (Routine) - Closed Specialty Diagnoses / Procedures Referred By Contac t Referred To Contact Cardiology Diagnoses S/P TAVR (transcatheter aortic valve replacement) Procedures Echocardiogram Transthoracic Vinod Juárez PA [facility] [place] [address] [facility] [place] [address] Referral ID Status Reason Start Date Expiration Date V isits Requested Visits Authorized [id number] Closed Specialty Service Requested 05/22/2023 05/21/2024 1 1 Reason for Visit * Diagnostic Test (Routine) - Closed Specialty Diagnoses / Procedures Referred By Contac t Referred To Contact Cardiology Diagnoses S/P TAVR (transcatheter aortic valve replacement) Procedures Echocardiogram Transthoracic Vinod Juárez PA [facility] [place] [address] [facility] [place] [address] Referral ID Status Reason Start Date Expiration Date V isits Requested Visits Authorized [id number] Closed Specialty Service Requested 05/22/2023 05/21/2024 1 1 Encounter Details Date Type Department Care Team (Latest Contact Info) Description 07/08/2023 10:19 AM EST - 07/08/2023 11:59 PM EST Hospital Encounter Non-[place]vasive [place] [address] Alirio Esparza MD S/P TAVR (transcatheter aortic [...] 11/02/2024 12:00 PM EDT [place] [address] 11/02/2024 1:00 PM EDT [place] [address] Magdalena Peralta MD [facility] [place] [address] 03/01/2025 4:15 PM EDT Office Visit Dermatology at [place] [address] [facility] [address] [place] [address] Marek Bonilla MD [address], [place] [address] documented as of this encounter Procedures Procedure [...] EST Narrative 07/08/2023 12:26 PM EST 1 [place] [address] ? Echocardiogram Report Name: ONESIMO THACKER ?Study Date: 07/08/2023 10:31 AMBP: 118/60 mmHg ? Patient Location: 4A : 1955 ? Height: 155 cm ? Account: [id number] Age: 67 yrs ? Weight: 74 kg Gender: Female ?BSA: 1.7 m2 Ordering Physician: ALIRIO ESPARZA Referring Physician: VINOD JUÁREZ Performed By: Felicia Norris RDCS Reason For Study: S/P TAVR Exam Location: [facility]. Interpretation Summary Left ventricular systolic function [...] no significant change (post-procedure). Procedure Limited - 98035. Doppler - 98869. Color Doppler - 27532. Satisfactory quality. This study is limited because [...] Note Lee Kincaid MD - 07/08/2023 1 [place] [address] Echocardiogram Report Name: ONESIMO THACKER Study Date: 310:31 AMBP: 118/60 mmHg Patient Location: : 1955 Height: 155 cm Account: [id number] Age: 67 yrs Weight: 74 kg Gender: Female BSA: 1.7 m2 Ordering Physician: ALIRIO ESPARZA Referring Physician: VINOD JUÁREZ Performed By: Felicia Norris RDCS Reason For Study: S/P TAVR Exam Location: [facility]. Interpretation Summary Left ventricular systolic function [...] is nosignificant change (post-procedure). Procedure Limited - 11280. Doppler - 57869. Color Doppler - 72331. Satisfactoryquality. This study is limited because of [...] replacement) documented in this encounter Care Teams Special Systems Technician Relationship Specialty Start Date End Date Magdalena Acosta MD [address] [place] [address] PCP - General Family Medicine 02/05/23 documented as of this encounter
--- OUTSIDE RECORDS SUMMARY | 2024-06-27 15:18 | XMS_ITS | Encounter Summary ---
Author Organization [facility] [place] [address] Care Team Providers Care Gas Check Pad Maker Name Role Phone Magdalena Acosta MD Primary Care Provider [phone] Encounter Details Date Type Department Care Team [...] 11/02/2024 12:00 PM EDT Appointment [place] [address] 11/02/2024 1:00 PM EDT Office [place] [phone] Magdalena Peralta MD [facility] [place] [address] 03/01/2025 4:15 PM EDT Office Visit Dermatology at [place] [address] [place] [address] Marek Bonilla MD [address], [place] [address] documented as of this encounter Visit Diagnoses Not on filedocumented in this encounter Care Teams Gas Check Pad Maker Relationship Specialty Start Date End Date Magdalena Acosta MD [address] [place] [address] PCP - General Family Medicine 02/05/23 documented as of this encounter
--- OUTSIDE RECORDS SUMMARY | 2024-06-27 15:18 | XMS_ITS | Encounter Summary ---
Author Organization [facility] [place] [address] Care Team Providers Care Gasoline Tester Name Role Phone Magdalena Acosta MD Primary Care Provider [phone] Encounter Details Date Type Department Care Team (Late st Contact Info) Description 05/27/2023 Refill Cardiology at [address] [phone] Vero Marrero, RN Social History Tobacco Use [...] PM EDT TC to Nurse Sosa at [facility] to relay response from Jay Maza copied below. Nurse Sosa states they will send a new prescription to patient's preferred pharmacy and call the patient with the medication information. No print prescription sent to update med list. May 27, 2023 Jay Maza PA to In 05/27/23 2:44 PM OK to change ticagrelor to Clopidogrel. Now, she should be taking ticagrelor 90mg BID. When she switches, she can take ticagrelor, then the next morning, stop ticagrelor, instead take clopidogrel 300mg once, then after that 75mg once daily. Jay Marrero director of culture Clinic at [facility] [address] * Telephone Encounter - Vero Marrero RN - 05/27/2023 1:46 PM EDT VM received from triage nurse Ossa at [facility] stating patient was seen today [...] more affordable option, if possible. Vero Marrero director of culture Clinic at [facility] [address] documented in this encounter Plan of Treatment Upcoming Encounters Date Type Department Care Team (Late st Contact Info) Description 11/02/2024 12:00 PM EDT Appointment [place] [address] 11/02/2024 1:00 PM EDT Office Visit [place] [address] Magdalena Peralta MD [facility] [place] [address] 03/01/2025 4:15 PM EDT Office Visit Dermatology at [address] [phone] Marek Bonilla MD [facility] [address] [place] [address] documented as of this encounter Visit Diagnoses Diagnosis Aortic valve stenosis, etiology of cardiac valve disease unspecified documented in this encounter Care Teams Gasoline Tester Relationship Specialty Start Date End Date Magdalena Acosta MD [address] [place] [address] PCP - General Family Medicine 02/05/23 documented as of this encounter
--- OUTSIDE RECORDS SUMMARY | 2024-06-27 15:19 | XMS_ITS | Encounter Summary ---
Author Organization [place] [id number] Care Team Providers Care Program Manager Rn Name Role Phone Magdalena Acosta MD Primary Care Provider [phone] Reason for Visit * Auth/Cert (Routine) Specialty Diagnoses / Procedures Referred By Contac t Referred To Contact Diagnoses Symptomatic severe aortic stenosis with low ejection fraction NSTEMI, CHF Haris Chua MD [facility] [place] [address] [facility] Referral ID Status Reason Start Date Expiration Date Visits Re quested Visits Authorized [id number] 1 1 Encounter Details Date Type Department Care Team (Late st Contact Info) Description 05/12/2023 7:35 AM EDT Anesthesia [place] [address] Lynda Mcgowan MD [facility] [place] [address] Alie Park MD [facility] [place] [address] Anesthesia Record Procedure Summary Procedure Name Responsible [...] cephalic vein (lateral side of arm), left; [id number] catheter system; Anatomical Landmarks; US Not Used; [...] RN LDA Cath/EP Sheath 05/12/23; 0733; 14 Eritrean (Fr); Right; Femoral; Arterial 05/12/23 0733 by Guerda Bender, RN 05/12/23 0830 by Guerda Bender RN LDA Cath/EP Sheath 05/12/23; 0734; 6 Eritrean (Fr); Right; Femoral; Venous 05/12/23 0734 by Guerda Bender RN 05/12/23 0817 by Guerda Bender RN LDA Cath/EP Sheath 05/12/23; 0734; 7 Eritrean (Fr); Left; Femoral; Arterial 05/12/23 0734 by Guerda Bender, RN 05/12/23 0837 by Guerda Bender RN LDA Cath/EP Sheath 05/12/23; 0734; 6 Eritrean (Fr); Left; Femoral; Venous 05/12/23 0734 by [...] Procedure Summary Date: 05/12/23 Room / Location: CLINICAL SUPERVISOR [address] [place] [address] CATH LABS Anesthesia Start: 734 Anesthesia Stop: [...] All Anesthesia Providers: Anesthesiologist: Lynda Mcgowan MD Exploration Driller: Nico Graham MD Vitals Value Taken Time [...] 05/08/2023 ??? Mild coronary artery disease by [facility] 11/09/2022 05/08/2023 ??? Heart [...] IMG S&I N/A 11/09/2022 CORONARY ANGIOGRAPHY; W [facility],POSSIBLE PCI (WRVU 5.6) performed [...] 3 general, with a(n) intravenous induction Add-on [id number] TAVR. In cardiogenic shock. Has arterial line, [...] 05/12/2023 10:19 AM EDT Addendum created 05/12/23 101 by Lynda Mcgowan MD Intraprocedure Meds edited documented in this encounter Plan of Treatment Upcoming Encounters Date Type Department Care Team (Late st Contact Info) Description 11/02/2024 12:00 PM EDT Appointment [place] [address] 11/02/2024 1:00 PM EDT Office [place] [phone] Magdalena Peralta MD [facility] [place] [address] 03/01/2025 4:15 PM EDT Office Visit Dermatology at [place] [address] [place] [phone] Marek Bonilla MD [address] [place] [address] documented as of this encounter Visit Diagnoses [...] mL/hr documented in this encounter Care Teams Program Manager Rn Relationship Specialty Start Date End Date Magdalena Acosta MD [address] [place] [address] PCP - General Family Medicine 02/05/23 documented as of this encounter
--- OUTSIDE RECORDS SUMMARY | 2024-06-27 15:19 | XMS_ITS | Encounter Summary ---
Author Organization [facility] [place] [address] Care Team Providers Care Salt Operator Name Role Phone Magdalena Acosta MD Primary Care Provider [phone] Reason for Referral * Diagnostic Test (Routine) - Closed Specialty Diagnoses / Procedures Referred By Contac t Referred To Contact Cardiology Diagnoses S/P TAVR (transcatheter aortic valve replacement) Procedures Echocardiogram Transthoracic Vinod Juárez PA [facility] [place] [address] [facility] [place] [address] Referral ID Status Reason Start Date Expiration Date V isits Requested Visits Authorized [id number] Closed Specialty Service Requested 05/22/2023 05/21/2024 1 1 * Home Health Care (Routine) - Closed Specialty Diagnoses / Procedures Referred By Contac t Referred To Contact Diagnoses S/P TAVR (transcatheter aortic valve replacement) Alirio Hudson MD [facility] CARDIOTHORACIC SURGERY [address] [facility] [address] [place] [address] Referral ID Status Reason Start Date Expiration Date V isits Requested Visits Authorized [id number] Closed Consult, Test & Treat 05/22/2023 11/18/2023 999 999 * Consultation (Routine) - Closed Specialty Diagnoses / Procedures Referred By Crispin maxwell Referred To Contact Cardiology Diagnoses S/P TAVR (transcatheter aortic valve replacement) Alirio Hudson MD [facility] CARDIOTHORACIC [place] [address] Cardiac Rehab, [address] [place] [address] Referral ID Status Reason Start Date Expiration Date V isits Requested Visits Authorized [id number] Closed Consult, Test & Treat 05/22/2023 11/18/2023 36 36 * Diagnostic Test (Routine) - Closed Specialty Diagnoses / Procedures Referred By Crispin maxwell Referred To Contact Cardiology Diagnoses Aortic valve stenosis, etiology of cardiac valve disease unspecified Procedures Echocardiogram Transthoracic Transesophageal Echocardiogram (YUSRA) Radha Hollins MD [facility] [place] [address] [facility] [place] [address] Referral ID Status Reason Start Date Expiration Date V isits Requested Visits Authorized [id number] Closed Specialty Service Requested 05/11/2023 05/10/2024 1 1 Reason for Visit * Auth/Cert (Routine) Specialty Diagnoses / Procedures Referred By Crispin maxwell Referred To Contact Diagnoses Symptomatic severe aortic stenosis with low ejection fraction NSTEMI, CHF Enrique Chua MD [facility] [place] [address] [facility] Referral ID Status Reason Start Date Expiration Date Visits Re quested Visits Authorized [id number] 1 1 Encounter Details Date Type Department Care Team (Latest Contact Info) Description 05/08/2023 9:14 AM EDT - 05/22/2023 10:46 AM EDT Hospital Encounter Heart and Vascular Unit Level 4 [place] [address] Enrique Chua MD [facility] [place] [address] Juan Luis Gonzalez MD [facility] [place] [address] Radha Hollins MD [facility] [place] [address] Alirio Hudson MD S/P TAVR (transcatheter aortic valve replacement) (Primary Dx); Aortic valve stenosis, etiology of cardiac valve disease unspecified; Symptomatic severe aortic stenosis with low ejection fraction; Heart failure with reduced ejection fraction due to heart valve disease; Mild coronary artery disease by [facility] 11/09/2022; Mixed connective tissue disease; Neck [...] Patient Age: 67 y.o. Birthdate: 1955 Language: Nepali Race: White Ethnicity: Not nor Admit Date: 05/08/2023 Discharge Date: 05/22/2023 Attending Physician: Alirio Hudson MD Follow-up Recommendations for Providers: Please continue routine management of cardiovascular risk factors including blood pressure, lipids,glucose, etc. Please note any medication changes. Patient to follow up with PCP, Magdalena Acosta MD, or Primary Production Mechanic, Maria Luz Mejia MD, in ~ 7-10 days. Patient to follow up with Financial Services Director, Dr. Antelmo Sharma, in 2 weeks with an EKG, Echo, CBC, and CMP. Patient to follow up with Nephrology, their office to arrange. Hvxv-Gvrdhr-yw interval: After initial 30 day follow-up appointment , all TAVR patients will follow-up again in one year with an echo. 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 Secondary Diagnoses: Active Hospital Problems Diagnosis S/P TAVR (transcatheter aortic valve replacement) Cardiogenic shock Symptomatic severe aortic stenosis with low ejection fraction Mild coronary artery disease by [facility] 11/09/2022 Heart failure with reduced ejection [...] Tube Placement Right 05/18/2023 Laure Ricks PA [facility] INTERVENTIONL RAD PRG CATH PLMT LEFT HEART CATH & ARTS W/INJ & ANGIO IMG S&I N/A 11/09/2022 CORONARY ANGIOGRAPHY; W [facility],POSSIBLE PCI (WRVU 5.6) performed by Mario Alberto Escobedo MD at [facility] CATH LABS PRG COMBINED RIGHT & LEFT HEART CATH W/INJ L VENTRICULOGRAPHY, IMG S&I N/A 05/12/2023 COMBINED RIGHT & LEFT HEART CATH,INC INJ FOR L VENTRICULOGRAPHY (WRVU 5.99) performed by Antelmo Sharma MD at [facility] CATH LABS PRO AORTOPLAS FOR SUPRAVALV STEN N/A 09/21/2016 @AORTOPLASTY FOR SUPRAVALVULAR STENOSIS (WRVU 29.33) performed by Alirio Hudson MD at [facility] MAIN OR PRO REPLACE AORTIC VALVE (TAVR/FEDERICO)PERC FEMORAL ARTERY APPROACH 05/12/2023 @TRANSCATHETER AORTIC VALVE REPLACEMENT (TAVR), PERCUTANEOUS FEMORAL (WRVU 22.47) performed by Alirio Hudson MD at [facility] CATH LABS PRO REPLACEMENT PROSTHETIC AORTIC VALVE OPEN W CARDIOPULMONARY BYPASS HOMOGRF/STENT N/A 09/21/2016 @REPLACE AORTIC VALVE, OPEN, W\CPB, W\PROSTHETIC VALVE (WRVU 41.32) performed by Alirio Hudson MD at [facility] MAIN OR Prior To Admission [...] Major Procedures/Operations: 05/12/23: Successful right transfemoral TAVR Lldwr-wl-Yuqsh with a 23 mm Lai 3 THV. Left coronary protection with left main MINNA. Hospital Course: #Severe prosthetic s/p valve in valve TF TAVR #Low coronary heights s/p left main stent for coronary protection #Type 2 NSTEMI, present on arrival, resolved #Acute decompensated HFrEF #Cardiogenic shock #EVANS / Cardiorenal syndrome Purnima Thacker was admitted to [facility] on 05/08/2023 via the Cardiology Service [...] and she was brought to the slab depiler operator the following morning where Drs. Alirio [...] if you have questions. Please call your Financial Services Director's office if you have any discharge or drainage from your procedural sites. Your Financial Services Director, Dr. Antelmo Sharma and/or the Grain Farmworker may be reached at . Antibiotic prophylaxis: [...] pain, warmth or drainage. Please call your plunger scoop operator's office if you have any discharge or drainage from your procedural sites. If there is a lot of swelling, apply mamta wraps during the day and remove at bedtime. Elevate your legs when you are sitting. Home oxygen therapy: N/A Follow up appointments: Please schedule a follow-up appointment with your PCP, Magdalena Acosta MD, or Primary Production Mechanic in ~ 7-10 days. You have a follow-up appointment with your Financial Services Director, Dr. Antelmo Sharma, in 2 weeks with an EKG, Echo, and labs prior to your appointment. You will need follow-up with Nephrology, their office will arrange. Teyc-Jcgblz-uf interval: After initial 30 day follow-up appointment , all TAVR patients will follow-up again in one year with an echo. Cardiac Rehabilitation: Purnima Thacker was seen today regarding participation in the outpatient Phase 2 Cardiac Rehabilitation at [facility]. The patient agrees to a [...] [facility] [place] [place] Arrive at: Multi Operation Machine Operator Area 5C [phone] 02/11/2024 2:00 PM Marek Bonilla MD Dermatology at [place] Arrive at: [facility] [address] [phone] Future Orders Complete By Expires Type and Screen Future Surgery, [facility] [place] [place] SAME DAY PROGRAM ONLY) [ARX1857 Custom] 05/11/2023 Process Instructions: This test is intended ONLY for patients with upcoming surgery for testing prior to the day of surgery obtained through the same day program (4V or SDP). For ALL OTHER PATIENTS, order a Type and Screen (WOG068) This order includes the physician order for an ABO Recheck if requested by the Blood Bank. Scheduling Instructions: Comments: Questions: Date of surgery: CBC (with Diff) [[id number] Custom] 06/05/2023 12/05/2023 Process Instructions: INCLUDES: WBC, RBC, Hgb, Hct, Platelets, RBC Indices and Differential Scheduling Instructions: Comments: Questions: Comprehensive metabolic panel (non-fasting) [LAB17 Custom] 06/05/2023 08/20/2023 Process Instructions: INCLUDES: Calcium, T Protein, Albumin, AST, ALT, Alk Phos, T Bili, BUN, Creat, GFR, Glucose, Lytes. Scheduling Instructions: Comments: Questions: Echocardiogram Transthoracic [10726 CPT(R)] 06/05/2023 12/05/2023 Process Instructions: Scheduling Instructions: Questions: Where will study be performed?: [facility] [place] [place] Clinics Does the patient have Congenital Heart Disease?: Does patient require sedation?: GA rationale: EKG 12 Lead [71483 CPT(R)] 06/05/2023 12/05/2023 Process Instructions: Scheduling Instructions: Questions: Which location will this be performed?: [place] Is a rhythm strip needed?: No [facility] Devices [EQ161 Custom] As directed Process Instructions: Scheduling Instructions: Questions: Device Needed: WALKER (E0143) Patient Height (cm): 154.9 cm (5' 0.98) Patient Weight: 75.4 kg (166 lb 3.2 oz) Diagnosis: Unsteady gait when walking Referral to Cardiac Rehab [YQX369 Custom] As directed Process Instructions: If no progress note charted, please enter Clinical details in comments. Scheduling Instructions: Questions: My question or request is: s/p TAVR. Cardiac rehab at [facility]. Referral to Home Health [REF34 Custom] As directed Process Instructions: If no progress note charted, please enter Clinical details in comments. Scheduling Instructions: Comments: DOCUMENTATION FOR VNA SERVICES PATIENT'S LOCATION: Purnima Thacker [address] [place] [phone] (home) Us Marketing Director's Name: Self and brother Raymond In discussion with the attending physician, it is certified that this patient is under his/her careand that MD, or an FLIGHT PURSER, REGRIND MILL OPERATOR, or PA who is working directly with him/her, had a pasl-wn-zgcz encounter that meets the physician jssh-zz-puyu encounter requirements with this patient on 05/22/2023. [...] for managing ADLs. HOME HEALTH CARE AGENCY: [facility]. [address] [place] [address] PHONE: [phone] FAX: [phone] Start of care: Ideally 24-48 hours after [...] Magdalena Acosta MD [address] / [facility] [address] All VNA agencies which cover the area of patient's residence have been reviewed, either verbally joao writing, and patient has chosen the home health care agency noted. Questions: Disciplines Requested: Physical Therapy Occupational Therapy Discharge References/Attachments None Arrangements for VNA/home care: As above. (delete if no VNA) Signed: EKATERINA NAVARRETE [facility] Section of Cardiac Surgery Date: 05/22/2023 CC: Magdalena Acosta MD WoolseyMario Alberto MD [address] [place] [address] documented in this encounter Discharge Instructions * Patient Instructions* Vinod Juárez PA - 05/22/2023 9:32 AM EDT TAVR Discharge Instructions: Call your doctor if: You have a fever of greater than 101 degrees, shaking chills, if you develop redness or drainage from your procedure sites, or if you have questions. Please call your Financial Services Director's office if you have any discharge or drainage from your procedural sites. Your Financial Services Director, Dr. Antelmo Sharma and/or the Grain Farmworker may be reached at . Antibiotic prophylaxis: [...] pain, warmth or drainage. Please call your plunger scoop operator's office if you have any discharge or drainage from your procedural sites. If there is a lot of swelling, apply mamta wraps during the day and remove at bedtime. Elevate your legs when you are sitting. Home oxygen therapy: N/A Follow up appointments: Please schedule a follow-up appointment with your PCP, Magdalena Acosta MD, or Primary Production Mechanic in ~ 7-10 days. You have a follow-up appointment with your Financial Services Director, Dr. Antelmo Sharma, in 2 weeks with an EKG, Echo, and labs prior to your appointment. You will need follow-up with Nephrology, their office will arrange. Fqnq-Qmfwmf-pm interval: After initial 30 day follow-up appointment , all TAVR patients will follow-up again in one year with an echo. Cardiac Rehabilitation: Purnima Thacker was seen today regarding participation in the outpatient Phase 2 Cardiac Rehabilitation at [facility]. The patient agrees to a [...] ins ( tef) Haven Ba, PT Pager: [phone] Physical Therapy Inpatient Rehabilitation Department * Nico [...] 0600 and on the weekends please page [phone]. * Jory Paniagua - 05/20/2023 3:52 PM [...] vomiting Last Bowel Movement: 05/20/23 Jory Paniagua Level Vial Sealer * Tong Mike, OT - 05/20/2023 3:16 [...] Tube Placement Right 05/18/2023 Laure Ricks PA [facility] INTERVENTIONL RAD PRG CATH PLMT LEFT HEART CATH & ARTS W/INJ & ANGIO IMG S&I N/A 11/09/2022 CORONARY ANGIOGRAPHY; W [facility],POSSIBLE PCI (WRVU 5.6) performed by Mario Alberto Escobedo MD at [facility] CATH LABS PRG COMBINED RIGHT & LEFT HEART CATH W/INJ L VENTRICULOGRAPHY, IMG S&I N/A 05/12/2023 COMBINED RIGHT & LEFT HEART CATH,INC INJ FOR L VENTRICULOGRAPHY (WRVU 5.99) performed by Antelmo Sharma MD at [facility] CATH LABS PRO AORTOPLAS FOR SUPRAVALV STEN N/A 09/21/2016 @AORTOPLASTY FOR SUPRAVALVULAR STENOSIS (WRVU 29.33) performed by Alirio Hudson MD at [facility] MAIN OR PRO REPLACE AORTIC VALVE (TAVR/FEDERICO)PERC FEMORAL ARTERY APPROACH 05/12/2023 @TRANSCATHETER AORTIC VALVE REPLACEMENT (TAVR), PERCUTANEOUS FEMORAL (WRVU 22.47) performed by Alirio Hudson MD at [facility] CATH LABS PRO REPLACEMENT PROSTHETIC AORTIC VALVE OPEN W CARDIOPULMONARY BYPASS HOMOGRF/STENT N/A 09/21/2016 @REPLACE AORTIC VALVE, OPEN, W\CPB, W\PROSTHETIC VALVE (WRVU 41.32) performed by Alirio Hudson MD at [facility] MAIN OR Social History: Patient lives alone. Home Setup: Pt lives on one level with tub shower and three steps to enter. 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 [...] awareness: WFL Vision & Perception: corrective lenses insulation technician Communication: WFL Range of motion, strength, [...] Discharge planning. Total Minutes, Occupational Therapy: 28 ([phone]) OT Evaluation Code Rationale: Diagnosis & Pertinent Co-Morbidities affecting Plan of Care: see PMHx Occupational Profile & Client History: Brief Expanded Extensive x Assessment of Occupational Performance: 1-3 performance deficits 3-5 performance deficits x 5 + performance deficits Clinical Decision Making: Low Moderate High x Clinical decision making of moderate complexity using standardized patient assessment instrument and measurable assessment of functional outcome. Pager: [phone] TONG MIKE OT 05/20/2023 Occupational Therapy Rehabilitation [...] 0600 and on the weekends please page [phone]. * Rylie Rodriguez MD - 05/19/2023 3:59 [...] and plan. Cynthia Blackburn MD Nephrology Pager: [phone] * Diana Espino - 05/19/2023 1:49 PM EDT Field Case Manager Encounter Note Patient Name: Purnima Thacker : [id number] MR#: [id number] Admit Date: 05/08/2023 9:14 AM Hospital Day [...] as stated. Total Minutes, Physical Therapy: 38 ([phone]) Henrik Navarrete, HIGH SCHOOL HISTORY TEACHER Pager: [phone] Physical Therapy Inpatient Rehabilitation Department * Nico [...] 0600 and on the weekends please page [phone]. * Laure Ricks PA - 05/19/2023 7:56 [...] Ricks PA-C Interventional Radiology IR Team Pager [phone] * Consuelo Espinoza RN - 05/18/2023 4:13 PM EDT ANGIO NURSING DATABASE Name: Purnima Thacker Date of : 1955 AGE: 67 y.o. Address: [address] [place] [phone] (home) Mobile: No relevant phone numbers on [...] fraction I35.0 Mild coronary artery disease by [facility] 11/09/2022 I25.10 Heart failure with reduced [...] and plan. Cynthia Blackburn MD Nephrology Pager: [phone] * Magdalena Puri, HAM MARKER - 05/18/2023 10:51 AM EDT Images from the original note were not included. [facility] [place] [address] STRUCTURAL HEART DISEASE CONSULTATION NOTE PRIMARY CARE [...] stenosis. She is now status post TAVR Ypomn-ei-Goixm with a 23 mm Lai 3 THV 05/12/[address] Sharma. Preliminary findings: Successful right transfemoral TAVR Yhikn-pu-Yddlw with a 23 mm Lai 3 THV. [...] ejection fraction Mild coronary artery disease by [facility] 11/09/2022 Heart failure with reduced ejection [...] stenosis. She is now status post TAVR Caenh-hu-Enkyh with a 23 mm Lai 3 THV 05/12/[address] Sharma. Janet TAVR case notable for coronary LAD protective MINNA. Status post TAVR, the patient was transferred to [facility] [...] Magdalena Puri APRN Structural Heart Team Pager [phone] Team Office Please see addendum by Dr. Sharma for final plan and recommendations Associated attestation - Antelmo Sharma MD - 05/19/2023 10:52 PM EDT I have reviewed Magdalena Puri APRN's above history and I agree with the details as written. The assessment and plan were formulated in discussion with me and I agree with them as documented. Antelmo Sharma MD Pager [phone] * Nico Palacios PA - 05/18/2023 8:13 [...] 0600 and on the weekends please page [phone]. * Loli Hernandez, PT - 05/17/2023 5:27 [...] plan as stated. Time IN / OUT: 0278-0547 Total Minutes, Physical Therapy: 54 Billing Code: te-sx2, te-f, gait LOLI HERNANDEZ PT Pager: [phone] Physical Therapy Inpatient Rehabilitation Department * Cynthia [...] Well controlled. Cynthia Blackburn MD Nephrology Pager: [phone] * Maggie Mara, HAM MARKER - 05/17/2023 8:26 AM EDT Cardiac Surgery [...] 0600 and on the weekends please page [phone]. * Guerda Del Valle - 05/16/2023 10:44 AM EDT Nutrition Services Note - Low Nutrition Acuity Purnima Thacker is a 67 y.o. female Reason for intervention: hospital day 9 Nutrition Plan: Continue diet order Encourage good PO Lasix and Zofran noted Added special serve: open containers Monitor weight Patient scheduled for a hospital day 9 nutrition evaluation. Religion Department Chair met with pt at bedside. Pt reports that her appetite and PO has much improved since admission. Denies nausea/vomiting or trouble chewing/swallowing. Religion Department Chair provided snack list but pt not interested in adding snacks at this time. Her only concern was that she is worried that she will eat too much which will cause too much pressure in her stomach. Religion Department Chair assured pt and suggested eating smaller but [...] Last Bowel Movement: 05/10/23 Guerda Del Valle Level Vial Sealer * Vinod Juárez PA - 05/16/2023 10:19 [...] 0600 and on the weekends please page [phone]. * Michael Jeffers MD - 05/16/2023 8:11 AM EDT Images from the original note were not included. Hypertension-Nephrology Inpatient Follow-up Purnima Thacker [id number] 1955 ID: 67 y.o. old female seen [...] IRONSAT 12 (L) 05/16/2023 SFOLATE >20.0 07/03/2022 [id number] 07/03/2022 Lab Results Component Value Date [...] Dr. Ayoub. Please contact me at phone: [phone] or pager: [phone] with any questions. Michael Jeffers MD Nephrology [...] -Nephrology consulted, labs and renal US ordered -Rocky Mount removed, ambulated around the unit -bilateral pleural [...] 0600 and on the weekends please page [phone]. * Hortencia Cody MD - 05/15/2023 2:07 [...] not included. Hypertension-Nephrology Inpatient Follow-up Purnima Thacker [id number] 1955 ID: 67 y.o. old female seen [...] HGB 7.8 (L) 05/13/2023 SFOLATE >20.0 07/03/2022 [id number] 07/03/2022 Lab Results Component Value Date [...] Dr. Ayoub. Please contact me at phone: [phone] or pager: [phone] with any questions. Michael Jeffers MD Nephrology [...] last 720 hours. T/L/D Art ETT CVL [place] ASSESSMENT, MANAGEMENT, and DECISION MAKIN y.o. female [...] outlined inthis evaluation. HAVEN BA, PT Pager: [phone] Physical Therapy Inpatient Rehabilitation Department Time IN / OUT: 9855-5810 Total time: Total Minutes, Physical Therapy: 30 [...] 0600 and on the weekends please page [phone]. * Antelmo Sharma MD - 05/14/2023 7:56 AM EDT Images from the original note were not included. [facility] [place] [id number] STRUCTURAL HEART DISEASE CONSULTATION NOTE PRIMARY CARE [...] stenosis. She is now status post TAVR Nnwtm-ga-Byipm with a 23 mm Lai 3 THV 05/12/[address] Sharma. Preliminary findings: Successful right transfemoral TAVR Mvvvq-xo-Rhlty with a 23 mm Lai 3 THV. [...] ejection fraction Mild coronary artery disease by [facility] 11/09/2022 Heart failure with reduced ejection [...] stenosis. She is now status post TAVR Vhikt-hn-Snsvz with a 23 mm Lai 3 THV 05/12/[address] Sharma. Janet TAVR case notable for coronary LAD protective MINNA. Status post TAVR, [facility] [...] Brody Kaplan APRN Structural Heart Team Pager [phone] Team Office Please see addendum by Dr. [...] exposure. Nephrology consultationtoday. Antelmo Sharma MD Pager [phone] * Antelmo Cardenas RN - 05/14/2023 5:18 AM EDT Pt AOx4, complaining of mild/moderate generalized pain (states her Meloxicam is effective at home) currently refusing prn oxycodone. NAEON, hemodynamically stable on Milrinone, Maps >65, ST in mep980's down to NSR with frequent multifocal PVC's. [...] original note were not included. [facility] [place] [address] [place] [address] STRUCTURAL HEART DISEASE PROGRESS NOTE PRIMARY CARE [...] stenosis. She is now status post TAVR Vjsvu-gh-Qrdjj with a 23 mm Lai 3 THV 05/12/[address] Sharma. Preliminary findings: Successful right transfemoral TAVR Dgyhd-zi-Uzbhp with a 23 mm Lai 3 THV. [...] or perforation. Interval Events: - Transferred to [facility] post- TAVR for pressor/inotropic support (Levo, [...] ejection fraction Mild coronary artery disease by [facility] 11/09/2022 Heart failure with reduced ejection [...] stenosis. She is now status post TAVR Adpmx-zq-Rvhuv with a 23 mm Lai 3 THV [...] Brody Kaplan APRN Structural Heart Team Pager [phone] Team Office Please see addendum by Dr. [...] DAPT moving forward. Antelmo Sharma MD Pager [phone] * Bonita Miguel PA - 05/13/2023 8:30 AM EDT Cardiac Surgery Progress Note Purnima Thacker is a 67 y.o. 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 PMH of s/p tissue AVR (2017), mixed connective tissue disease HTN, HLD, NICOLAS, diverticulosis, rosacea, essential tremor, and depression. 24h Events: From slab depiler operator for above procedure Extubated at ~1600 [...] soft b/l, no evidence of hematoma. Tubes/Lines/Drains: [place], RIJ, A-line, Art, PIV Assessment/Plan: 67 y.o. [...] 0600 and on the weekends please page [phone]. * Onelia Schwartz MD - 05/12/2023 1:44 [...] ejection fraction Mild coronary artery disease by [facility] 11/09/2022 Heart failure with reduced ejection [...] FiO2 weaned to 40%. 1105: ABG 7.34/42/73/22 8524-5627: SBT performed and passed on these settings [...] PCP: Magdalena Acosta MD PCP phone number: [phone] Date of Admission: 05/08/2023 ( Hospital Day [...] 1447 PHART -- 7.34* 7.34* -- -- VDV0GPX -- 30* 30* -- -- PO2ART -- 72* 81* -- -- WYN6IPT -- 16.0* 15.7* -- -- LACTATEVEN 2.4* 2.7* 2.7* 4.8* 2.9* VBG (Venous Blood Gas) Recent Labs 05/12/23 0700 05/12/23 0318 05/12/2310505/11/23193905/11/23 1447 LACTATEVEN 2.4* 2.7* 2.7* 4.8* 2.9* Mixed Venous Sat Recent Labs 05/12/23 0508 05/12/23 0321 05/12/23 0114 05/12/23 0030 [id number] 30.7 32.7 37.3 25.1 Objective: Vitals Last [...] signed by: ALIX RUVALCABA MD, [facility] ([phone]), at 05/10/2023 1:[address] Cardiac for [...] signed by: Cullen Narayanan MD, [facility] ([phone]), at 05/11/2023 4:[address] Angiogram Abdomen [...] signed by: Eileen Gomes MD, [facility] ([phone]), at 05/11/2023 2:42 PM XR Chest One [...] signed by: Will Rowe MD, [facility] ([phone]), at 05/11/2023 11:57 PM XR Chest One [...] signed by: Will Rowe MD, [facility] ([phone]), at 05/12/2023 3:16 AM Assessment & Plan: [...] and inotrope. She is planned for a nyeqi-ry-hedlt TAVR this morning, which should hopefully improve [...] FACC Section of Cardiovascular Medicine [facility] Security Risk Analystyard rigger [facility] of Medicine at [facility] * Noreen Deutsch RN - [...] ejection fraction Mild coronary artery disease by [facility] 11/09/2022 Heart failure with reduced ejection [...] 05/11/2023 4:11 PM EDT Reported off to MEDICAL TRANSLATOR and pt transferred over in the bed for higher level of care. * Antelmo Sharma MD - 05/11/2023 9:45 AM EDT Images from the original note were not included. [facility] [place] [id number] STRUCTURAL HEART DISEASE CONSULTATION NOTE PRIMARY CARE [...] who had been referred for possible TAVR nkkxt-ry-lgjvk evaluation. Her primary symptoms are of dyspnea [...] [facility]. 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 She [...] ejection fraction Mild coronary artery disease by [facility] 11/09/2022 Heart failure with reduced ejection [...] lab ([facility] [place]) Result Value Ref Range Lactate WB 3.1 (H) 0.5 - 2.2 mmol/L Heparin (unfractionated) Level Result Value Ref Range Heparin UFH Level 0.46 IU/mL Lactate, whole blood, send to lab ([facility] [place] [place]) Result Value [...] leads Confirmed by MD Harshil, Enrique Bell ([id number]) on 05/10/2023 8:11:46 AM Cardiac Cath 11/09/2022 [...] alert Dr. Hudson of her inpatient status, [place] primary cardiac surgeon. Based on recent clinic visit, tentative plan had been for TAVR JANET ferrera given her chronological age. Cardiac cath 11/09/2022 notable for non-obstructive coronary disease. TAVR CTAs planned for today. Will review her case with cardiac surgery to determine best timing and therapies for her valve intervention. Addendum 05/11/2023 6:48 PM Due to decompensating HFrEF, she was transferred to [facility] this afternoon for further management. TAVR CT imaging support for adequate ileofemoral access. Given her acute deterioration today, will planfor RTF TAVR on 05/12/2023. Brody KaplanANURAG Structural Heart Disease Pager [phone] Please see addendum by Dr. Sharma for final plan I have seen the patient in person and reviewed Brody Kaplan APRN's above history and I agree with the details as written. The assessment and plan were formulated in discussion with me and I agree with them as documented. I examined the patient at the bedside and discussed with my CTS partner, Dr. Hudosn. We are prioritizing her TAVR first case in the AM. Ileofemoral anatomy appears suitable for large bore access. VTC distances are borderline and will need consideration of coronary protection. NPO past midnight, consent signed and dated. Antelmo Sharma MD Pager [phone] * Harini Lance MD - 05/11/2023 6:06 AM EDT Images from the original note were not included. Cardiology Progress Note Patient info: Name: Purnima Thacker : 1955 PCP: Magdalena Acosta MD PCP phone number: [phone] Date of Admission: 05/08/2023 ( Hospital Day [...] signed by: ALIX RUVALCABA MD, [facility] ([phone]), at 05/10/2023 1:25 PM TTE: 05/08 -Left [...] 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) Mild coronary artery disease by [facility] 11/09/2022 Hyperlipidemia, unspecified NICOLAS (obstructive sleep [...] PCP: Magdalena Acosta MD PCP phone number: [phone] Date of Admission: 05/08/2023 ( Hospital Day [...] 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) Mild coronary artery disease by [facility] 11/09/2022 Hyperlipidemia, unspecified NICOLAS (obstructive sleep [...] PCP: Magdalena Acosta MD PCP phone number: [phone] Date of Admission: 05/08/2023 ( Hospital Day [...] Gas) No results found for: PHART, PO2ART, HZJ0DEN, FRR7AOW Microbiology: Microbiology Results (Last 30 days) No [...] 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) Mild coronary artery disease by [facility] 11/09/2022 Hyperlipidemia, unspecified NICOLAS (obstructive sleep [...] fraction I35.0 Mild coronary artery disease by [facility] 11/09/2022 I25.10 Heart failure with reduced ejection fraction due to heart valve disease I50.20, I38 Cardiogenic shock R57.0 S/P TAVR (transcatheter aortic valve replacement) Z95.2 Past Medical History: Diagnosis Date Anemia Past Surgical History: Procedure Laterality Date PRG CATH PLMT LEFT HEART CATH & ARTS W/INJ & ANGIO IMG S&I N/A 11/09/2022 CORONARY ANGIOGRAPHY; W [facility],POSSIBLE PCI (WRVU 5.6) performed by Mario Alberto Escobedo MD at [facility] CATH LABS PRO AORTOPLAS FOR SUPRAVALV STEN N/A 09/21/2016 @AORTOPLASTY FOR SUPRAVALVULAR STENOSIS (WRVU 29.33) performed by Alirio Hudson MD at [facility] MAIN OR PRO REPLACEMENT PROSTHETIC AORTIC VALVE OPEN W CARDIOPULMONARY BYPASS HOMOGRF/STENT N/A 09/21/2016 @REPLACE AORTIC VALVE, OPEN, W\CPB, W\PROSTHETIC VALVE (WRVU 41.32) performed by Alirio Hudson MD at [facility] MAIN OR Social History and [...] fraction I35.0 Mild coronary artery disease by [facility] 11/09/2022 I25.10 Heart failure with reduced ejection fraction due to heart valve disease I50.20, I38 Cardiogenic shock R57.0 S/P TAVR (transcatheter aortic valve replacement) Z95.2 Past Medical History: Diagnosis Date Anemia Past Surgical History: Procedure Laterality Date PRG CATH PLME LEFT HEART CATH & ARTS W/INJ & ANGIO IMG S&I N/A 11/09/2022 CORONARY ANGIOGRAPHY; W [facility],POSSIBLE PCI (WRVU 5.6) performed by Mario Alberto Escobedo MD at [facility] CATH LABS PRO AORTOPLAS FOR SUPRAVALV STEN N/A 09/21/2016 @AORTOPLASTY FOR SUPRAVALVULAR STENOSIS (WRVU 29.33) performed by Alirio Hudson MD at [facility] MAIN OR PRO REPLACEMENT PROSTHETIC AORTIC VALVE OPEN W CARDIOPULMONARY BYPASS HOMOGRF/STENT N/A 09/21/2016 @REPLACE AORTIC VALVE, OPEN, W\CPB, W\PROSTHETIC VALVE (WRVU 41.32) performed by Alirio Hudson MD at [facility] MAIN OR Social History and [...] days, which prompted her to present to [facility]. She also endorses some intermittent retrosternal chest pain with exertion.She endorses some dizziness with exertion, but has not gotten faint or passed out. At [facility] she was noted to be afebrile, blood pressure 105/64, HR 120s, satting 95% on 2L NC. Labs from [facility] are below, of note she [...] 89/59, which prompted the transfer to us. [facility] labs: CBC - Hgb 10.5 CMP - Cr 1.1 BNP 48572 HsTrop 1358 Lactate 1.6 D-dimer 1183 Interval History Patient was admitted to [facility] due to concern on low BP [...] Klaudia Reid MD Internal Medicine PGY-1 Pager [phone], M1-S1 Service Associated attestation - Juan Luis Gonzalez MD - 05/08/2023 10:00 PM EDT Cardiology Attending Addendum Active Hospital Problems Diagnosis Symptomatic severe aortic stenosis with low ejection fraction Heart failure with reduced ejection fraction due to heart valve disease Mild coronary artery disease by [facility] 11/09/2022 Hyperlipidemia, unspecified History of aortic valve replacement Resolved Hospital Problems No resolved problems to display. I have interviewed and examined the patient, reviewed the available data, and have discussed my findings, assessment and plan with the patient and the team on admission to S2 service (from [facility] service) today. I agree with Dr. [...] PCP: Magdalena Acosta MD PCP phone number: [phone] Date of Admission: 05/08/2023 ( Hospital Day 0 days ) Attending:Enrique Chua MD ID: Purnima Thacker is a 67 y.o. female w/ PMH of s/p bioprosthetic AVR in 2016 with recent concern for severe restenosis, HTN, HLD, mixed connective tissue disease, who presents in transfer from [facility] with worsening BONILLA and weight [...] four days, which promptedher to present to [facility]. She also endorses some intermittent retrosternal chest pain with exertion. She endorses some dizziness with exertion, but has not gotten faint or passed out. At [facility] she was noted to be afebrile, blood pressure 105/64, HR 120s, satting 95% on 2L NC. Labs from [facility] are below, of note she [...] 89/59, which prompted the transfer to us. [facility] labs: CBC - Hgb 10.5 CMP - Cr 1.1 BNP 30117 HsTrop 1358 Lactate 1.6 D-dimer 1183 Vasoactive [...] tissue disease, who [facility] B[facility] and weight gain [...] Lincoln Sal MD Internal Medicine, PGY-1 Cardiology [facility] #[id number] 05/08/23 12:06 PM Cardiology Staff [...] Has had substantial decrement in LVEF. Elevated Palua at OSH in setting of severe HF. [...] to the planned procedure. Hand Hygiene: The whitesmith did perform hand hygiene prior to arterial [...] Successful arterial line placement. Crispin Timmons MD Grain Farmworker Associated attestation - Onelia Schwartz MD - [...] (flow was non-pulsatile) and appearance of blood. [place] catheter was placed and locked at 55 [...] information for follow-up [facility], [place] [address] [place] [address] Cardiac Rehab, [facility] [address] [place] [address] [place] [address] [facility], [place] [address] [place] [address] Transportation: family or friend will provide *Brother [...] Type: *No Product type* / Secondary Insurance: [employer] Prescription Coverage: Yes This plan was formulated with input from patient, family (please identify family/friend involved ifapplicable) and team. All are in agreement with plan. Aliza Martino MSN-Ed, RN ACM envelope folding machine operator Office of Care Management Pager #[phone] * Plan of Care - Favian Mckeon [...] Chaudhary RN - 05/21/2023 4:46 PM EDTSummary: [facility] referral OFFICE OF CARE MANAGEMENT [...] Type: *No Product type* / Secondary Insurance: Right Hemisphere [facility] Last Physical Therapy Recommendation: (Home with [...] describing our affiliations within the [facility] and educate about their right to choose where referrals are sent. provide a list of Home Health Agencies / Durable Medical Equipment vendors which serve their preferred geographic area. They have requested referrals to: [facility] [address] [place] [address] [facility] @ [facility] [place] [place] [facility] [place] Note routed to a Genetic Coordinator who will communicate referrals to facilities and provide any required information. Transportation: family or friend will provide *Brother Raymond on Tuesday 05/22 at 1000 Barriers to discharge: Does not have home 22/02 assist available until tomorrow Tuesday 05/22 Plan going forward: Discharge home into the 22/02 home care of brother Raymond with [facility] and [facility] PT/OT services on Tuesday 05/22 at 1000. Care Management will continue to follow and assist with discharge planning and coordination of care as indicated. Anticipated Date of Discharge: 05/22/2023 * Plan of Care - Favian Mckeno RN - 05/21/2023 6:27 AM EDT Problem: [...] Attending: All Staff: Staff Role Juanita Almaguer Graphic Design Manager Laure Ricks PA Physician Insulator Cutter And Former Magdalena Rodriguez desk lieutenant Nurse Consuelo Espinoza RN Radiology Nurse Post-operative [...] prosthetic . #Severe prosthetic AV stenosis s/p Jnaet TF TAVR #Cardiogenic shock #s/p LM stent [...] Type: *No Product type* / Secondary Insurance: [employer] [place] Last Physical Therapy Recommendation: long-term facility, [...] Office of Care Management letter from the Local [employer]modal Truck Driver pertaining to rehab referrals. provide a letter describing our affiliations within the [facility] and educate about their right to choose where referrals are sent. provide the CMS Star Quality Rating handout. review the different levels of rehab including SNF, swing, and acute. provide a list of facilities within their preferred geographic area. request that they provide at least three choices for referral. They have requested referrals to: [facility] [address] [place] [address] [facility] ([facility]) [address] [place] [address] (Accepts pts only after exhausting all other local SNF options) [facility] ([facility]) ([facility]) [address] [place] [address] PHONE: [phone] FAX: [phone] Simin Benavides [facility] ([facility]) [facility]) [address] [place] [address] PHONE: [phone] FAX: [phone] Note routed to a Genetic Coordinator who will communicate referrals to facilities and provide any required information. Transportation: family or friend will provide Barriers to discharge: Discharge planning Plan going forward: Care Management will continue to follow and assist with discharge planning and coordination of care as indicated. Anticipated Date of Discharge: 05/20/2023 MarioA lberto Olmos RN * Plan of Care - [...] the outpatient Phase 2 Cardiac Rehabilitation at [facility]. The patient agrees to a [...] from the original note were not included. [facility] NEPHROLOGY/HYPERTENSION CONSULT NOTE PATIENT: Purnima [...] in her course. She ultimately underwent a prdwh-kz-hamdm procedure on and tolerated it well (see operative details). [facility] on some pressors [...] 1423 05/12/23 1105 PHART 7.39 7.37 7.34* CVS5XUY 33* 36 42 PO2ART 101 102 73* UMT3RBV 19.5* 20.4 22.1 LACTATEVEN 1.5 1.8 2.8* ECR6XTW 40 40 40 PFRATIOART2 252 255 182 VBG (Venous Blood Gas) Recent Labs 05/12/23 1557 05/12/23 1423 05/12/23 1105 LACTATEVEN 1.5 1.8 2.8* Mixed Venous Sat Recent Labs 05/12/23 1425 05/12/23 0508 05/12/23 0321 X1FULA4 59.9 30.7 32.7 LFT's: Recent Labs 05/14/23 0110 05/13/23 0115 05/12/23 0600 BILITOT 0.4 0.5 0.9 BILIDIR -- 0.3 -- ALBUMIN 3.6 3.0* 3.5 ALKPHOS 86 85 100 ALT 437* 903* 1,174* AST 319* 792* 1,435* No results found for: UPROTCREAT No results found for: TPROTEINPEP, ALBELECT No results found for: MICROALBUR, OFFK37ITN No results found for: HA1C Lab Results Component Value Date CALCIUM 8.5 05/14/2023 PHOS 4.7 (H) 05/08/2023 No results found for: 25OHVITD MICROBIOLOGY: ProcedureComponentValueUnitsDate/TimeUrine culture [[id number]]Collected: 05/11/231921Lab Status: Final resultSpecimen: Clean Catch UrineUpdated: [...] consulted for assessment if this patient needs LOCK TENDER CHIEF OPERATOR. Atthis time, we can likely hold off on LOCK TENDER CHIEF OPERATOR. Her volume status appears sufficient and her metabolic kanwal angements with mild acidosis is not too profound. Patient does not have significant uremic symptoms. We can hold off for today, but the patient is a high risk candidate for needing LOCK TENDER CHIEF OPERATOR in future daysespecially if her Cr curve trends the direction it is for the next several days. S/p Jsbyv-cg-Ppeyz TF TAVR: Management per cardiology. On milrinone gtt. PLAN: - Please obtain following diagnostics: renal US, urinalysis, urine prot/Cr ratio, urine albumin/Cr ratio, CK, uric acid, serum osmol, daily VBGs - No acute indications for LOCK TENDER CHIEF OPERATOR/dialysis. We will keep close eye on Cr trend, volume status, and metabolics to ensure patient still does not need LOCK TENDER CHIEF OPERATOR as she ensues intrinsic renal recovery [...] M.H.A., M.A. PGY-V Nephrology-Hypertension Fellow Page # [phone] [facility] [address] 2nd floor, Multi Operation Machine Operator [address] [place] [address] * Care Management - Mario Alberto Olmos [...] [facility] [place] Plan for discharge is: Home w/o [...] CV at 0945. Was intubated in the slab depiler operator due to agitation. Maintained bedrest for [...] Operative Note Patient Name: Purnima Thacker : [id number] MR#: [id number] Case Date: 05/12/2023 Surgeon: Surgeon(s) and Role: [...] procedure Note: Patient Name: Purnima Thacker : [id number] MR#: [id number] Case Date: 05/12/2023 Operators Surgeon: Surgeon(s) and Role: Panel 1: * Antelmo Sharma MD - Primary * Rebkeah Tejeda MD - Fellow - Assisting Panel [...] main with 4.0 x 30 mm Resolute Pope Drug Eluting Stent Perclose x1 + Angio-seal 8 Fr x1, RFA Manual pressure, LFA Manual pressure, LFV Endotracheal intubation (performed by cardiac anesthesia) Preliminary findings: Successful right transfemoral TAVR Iplvj-yq-Laxgh with a 23 mm Lai 3 THV. [...] MD, M.Sc. Structural Heart Disease Fellow Pager :[phone] Antelmo Sharma MD Pager [phone] * Op Note - Alirio Hudson MD - 05/12/2023 7:37 AM EDT Preop Diagnosis: Severe aortic stenosis, symptomatic. Postop Diagnosis: Same. Procedure: Transfemoral TAVR procedure with 23mm valve. Surgeon: Alirio Hudson M.D. Production Mechanic: Danny CULP Procedure: The patient was taken to the slab depiler operator. The patient had monitored anesthesia care. 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 [facility] [place] [address] [place] [address] STRUCTURAL HEART DISEASE CONSULTATION NOTE PRIMARY CARE [...] who had been referred for possible TAVR nnktm-yk-uzewp evaluation. Her primary symptoms are of dyspnea [...] [facility]. 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 PROBLEM LIST: Patient Active Problem List Diagnosis Symptomatic severe aortic stenosis with low ejection fraction Mild coronary artery disease by [facility] 11/09/2022 Heart failure with reduced ejection [...] lab ([facility] [place]) Result Value [...] leads Confirmed by MD Harshil, Enrique Bell ([id number]) on 05/10/2023 8:11:46 AM Assessment and Plan: [...] Antelmo Sharma MD Structural Heart Disease Pager [phone] * Plan of Care - Sarahi Nice RN - 05/10/2023 3:55 AM EDTSumcaydeny: RN Note and Care Plan Sarahi Nice RN assumed care of pt at time of their arrival to room 362 from [facility]. Pt voices shortness of breath at [...] Transfer from another hospital Location: admitted from [facility] Reason for Hospitalization: Critical aortic [...] receiving care in [place] must abide by [place] law. The hierarchy [...] (i) The agent with financial power of district attorney or a conservator appointed in [...] Current DME: none Home Address confirmed as: [address] [place] [id number] Social & Family Supports: All names listed [...] Type: *No Product type* / Secondary Insurance: Right Hemisphere [facility] [place] ONLY if patient has Medicare A&B - Does this patient have secondary insurance?: Yes ; Prescription Coverage: Yes Preferred Pharmacy: updated to [facility] Status: Patient is a : No Primary Care Provider confirmed: Magdalena Acosta MD [phone] Patient/Caregiver Goals of Treatment: Potential Needs for [...] a 2 story home with 2 [facility]. Patient is independent with [...] of care planning. Alie Bradshaw RN, CM Pager-[phone] * Plan of Care - Emily Lucero RN - 05/08/2023 2:54 PM EDT OUTCOME EVALUATION NOTE: OUTCOME SUMMARY: Pt arrived from [facility]. A&O, no c/o pain or [...] 11/02/2024 12:00 PM EDT [place] [address] 11/02/2024 1:00 PM EDT [place] [address] Magdalena Peralta MD [facility] [place] [address] 03/01/2025 4:15 PM EDT Office Visit Dermatology at [place] [address] [facility] [place] [address] Marek Bonilla MD [address], [place] [address] Scheduled Referrals Name Type Priority Associated Diagnoses Orde r Schedule Referral to Cardiac Rehab Outpatient Referral Routine S/P TAVR (transcatheter aortic valve replacement) Ordered: 05/22/2023 Referral to [facility] Referral Routine S/P TAVR (transcatheter [...] Heart Cath W/Inj L Ventriculography, Img S&I ([id number]) 05/12/2023 7:37 AM EDT Aortic valve stenosis, [...] 12:15 PM EST) Pathologist [facility] EF 20 [facility] SYSTEM Anatomical Region Laterality Modality Cardiac Other 07/08/2023 10:3 1 AM EST Narrative 07/08/2023 12:26 PM EST [address] [place] [address] ? Echocardiogram Report Name: PURNIMA THACKER ?Study Date: 07/08/2023 10:31 AMBP: 118/60 mmHg ? Patient Location: : 1955 ? Height: 155 cm ? Account: [id number] Age: 67 yrs ? Weight: 74 kg [...] no significant change (post-procedure). Procedure Limited - 02143. Doppler - 79908. Color Doppler - 34777. Satisfactory quality. This study is limited because [...] Note Lee Kincaid MD - 07/08/2023 [address] [place] [address] Echocardiogram Report Name: PURNIMA THACKER Study Date: 0:31 AMBP: 118/60 mmHg Patient Location: : 1955 Height: 155 cm Account: [id number] Age: 67 yrs Weight: 74 kg Gender: [...] is nosignificant change (post-procedure). Procedure Limited - 92864. Doppler - 27562. Color Doppler - 57194. Satisfactoryquality. This study is limited because of [...] EST) Glucose 93 65 - 199 mg/dL [facility] Comment:Diabetes: >=200 mg/d L plus symptoms Blood Urea Nitrogen 19(H) 8 - 18 mg/dL [facility] Creatinine 0.81 0.70 - 1.20 mg/dL [facility] Sodium 142 135 - 145 mmol/L [facility] Potassium 3.8 3.5 - 5.0 mmol/L [facility] Comment: Please note: ??Patients with WBC >100,000 may have falsely elevated Potassium levels. ??For accurate Potassium quantification in these patients send serum separator tube (gold top) for subsequent determinations. ??Contact the Clinical Chemistry Laboratory if there are any questions. Chloride 104 98 - 107 mmol/L [facility] Carbon Dioxide 26 22 - 31 mmol/L [facility] Anion Gap 12 5 - 15 mmol/L [facility] LABORATORY Calcium 10.2 8.5 - 10.5 mg/dL [facility] Protein, Total 7.4 6.1 - 8.0 g/dL [facility] Albumin 4.1 3.2 - 5.2 g/dL [facility] Aspartate Aminotransferase 24 0 - 30 unit/L [facility] Alanine Aminotransferase 12 0 - 30 unit/L [facility] Alkaline Phosphatase 93 35 - 105 unit/L [facility] Bilirubin, Total 0.3 0.2 - 1.3 mg/dL [facility] Est Glomerular Filtration Rate 80 >=60 mL/min/1. 73 m?? [facility] Comment: This patient's estimated [...] Lab Alirio Hudson MD CHEMISTRY ORDERABLE S [facility] [place] [address] * (ABNORMAL) Basic Metabolic Panel (non-fasting) (05/22/2023 3:57 AM EDT) Glucose 88 65 - 199 mg/dL [facility] Comment:Diabetes: >=200 mg/d L plus symptoms Blood Urea Nitrogen 21(H) 8 - 18 mg/dL [facility] Creatinine 0.69(L) 0.70 - 1.20 mg/dL [facility] Sodium 136 135 - 145 mmol/L [facility] Potassium 3.6 3.5 - 5.0 mmol/L [facility] Comment: Please note: ??Patients with WBC >100,000 may have falsely elevated Potassium levels. ??For accurate Potassium quantification in these patients send serum separator tube (gold top) for subsequent determinations. ??Contact the Clinical Chemistry Laboratory if there are any questions. Chloride 102 98 - 107 mmol/L [facility] Carbon Dioxide 23 22 - 31 mmol/L [facility] Anion Gap 11 5 - 15 mmol/L [facility] Calcium 8.6 8.5 - 10.5 mg/dL [facility] Est Glomerular Filtration Rate 95 >=60 mL/min/1. 73 m?? [facility] Comment: This patient's estimated [...] Lab Mara Maggie OSBORN CHEMISTRY ORDERABL ES [facility] [place] [address] * (ABNORMAL) Basic Metabolic Panel (non-fasting) (05/21/2023 5:06 AM EDT) Pathologist [facility] Glucose 87 65 - 199 mg/dL [facility] Comment:Diabetes: >=200 mg/d L plus symptoms Blood Urea Nitrogen 25(H) 8 - 18 mg/dL [facility] Creatinine 0.84 0.70 - 1.20 mg/dL [facility] Sodium 136 135 - 145 mmol/L [facility] Potassium 3.6 3.5 - 5.0 mmol/L [facility] Comment: Please note: ??Patients with WBC >100,000 may have falsely elevated Potassium levels. ??For accurate Potassium quantification in these patients send serum separator tube (gold top) for subsequent determinations. ??Contact the Clinical Chemistry Laboratory if there are any questions. Chloride 102 98 - 107 mmol/L [facility] Carbon Dioxide 26 22 - 31 mmol/L [facility] Anion Gap 8 5 - 15 mmol/L [facility] Calcium 8.9 8.5 - 10.5 mg/dL [facility] Est Glomerular Filtration Rate 76 >=60 mL/min/1. 73 m?? [facility] Comment: This patient's estimated [...] Narrative Resulting Agency Comment Spec In Lab [facility] HAM MARKER CHEMISTRY ORDERABL ES Performing Organization Address [facility] Co de Phone Number [facility] [place] [address] * Lavender Tube HOLD (05/20/2023 2:52 AM EDT) Lavender Hold Sample in lab. [facility] Blood Venous Draw / Unknown 05/20/2023 2:52 AM EDT 05/20/2023 3:04 AM EDT Mara [place] HAM MARKER HEMATOLOGY ORDERAB LES Performing Organization Address [facility] Co de Phone Number [facility] [place] [address] * (ABNORMAL) Basic Metabolic Panel (non-fasting) (05/20/2023 2:52 AM EDT) Glucose 152 65 - 199 mg/dL [facility] Comment:Diabetes: >=200 mg/d L plus symptoms Blood Urea Nitrogen 33(H) 8 - 18 mg/dL [facility] Creatinine 0.82 0.70 - 1.20 mg/dL [facility] Sodium 137 135 - 145 mmol/L [facility] Potassium 3.7 3.5 - 5.0 mmol/L [facility] Comment: Please note: ??Patients with WBC >100,000 may have falsely elevated Potassium levels. ??For accurate Potassium quantification in these patients send serum separator tube (gold top) for subsequent determinations. ??Contact the Clinical Chemistry Laboratory if there are any questions. Chloride 99 98 - 107 mmol/L [facility] Carbon Dioxide 22 22 - 31 mmol/L [facility] Anion Gap 16(H) 5 - 15 mmol/L [facility] Calcium 9.0 8.5 - 10.5 mg/dL [facility] Est Glomerular Filtration Rate 78 >=60 mL/min/1. 73 m?? [facility] Comment: This patient's estimated [...] Narrative Resulting Agency Comment Spec In Lab [facility] HAM MARKER CHEMISTRY ORDERABL ES Performing Organization Address [facility] Co de Phone Number [facility] [place] [address] * (ABNORMAL) Potassium (05/20/2023 2:52 AM EDT) Potassium 3.4(L) 3.5 - 5.0 mmol/L [facility] Comment: Please note: ??Patients with WBC >100,000 may have falsely elevated Potassium levels. ??For accurate Potassium quantification in these patients send serum separator tube (gold top) for subsequent determinations. ??Contact the Clinical Chemistry Laboratory if there are any questions. Blood 05/20/2023 2:52 AM EDT 05/20/2023 3:03 AM EDT Narrative Resulting Agency Comment Spec In Lab [facility] HAM MARKER CHEMISTRY ORDERABL ES Performing Organization Address City/[facility] Co de Phone Number [facility] [place] [address] * XR Chest PA & Lateral (Generic) [...] signed by: Chyna Johnson MD, [facility] ??([phone]), at 05/19/2023 2:19 PM Narrative 05/19/2023 2:19 [...] signed by: Chyna Johnson MD, [facility]([phone]), at 05/19/2023 2:19 PM Alirio Hudson MD IMG DX ORDERABLES * (ABNORMAL) Basic Metabolic Panel (non-fasting) (05/19/2023 5:49 AM EDT) Glucose 93 65 - 199 mg/dL [facility] Comment:Diabetes: >=200 mg/d L plus symptoms Blood Urea Nitrogen 45(H) 8 - 18 mg/dL [facility] Creatinine 1.02 0.70 - 1.20 mg/dL [facility] Sodium 138 135 - 145 mmol/L [facility] Potassium 3.9 3.5 - 5.0 mmol/L [facility] Comment: Please note: ??Patients with WBC >100,000 may have falsely elevated Potassium levels. ??For accurate Potassium quantification in these patients send serum separator tube (gold top) for subsequent determinations. ??Contact the Clinical Chemistry Laboratory if there are any questions. Chloride 102 98 - 107 mmol/L [facility] Carbon Dioxide 26 22 - 31 mmol/L [facility] Anion Gap 10 5 - 15 mmol/L [facility] Calcium 9.7 8.5 - 10.5 mg/dL [facility] Est Glomerular Filtration Rate 60 >=60 mL/min/1. 73 m?? [facility] Comment: This patient's [...] Agency Comment Spec In Lab Mara Serrano HAM MARKER [place] [address] * IR Chest Tube Placement Right (05/18/2023 [...] EDT) Glucose 95 65 - 199 mg/dL [facility] Comment:Diabetes: >=200 mg/d L plus symptoms Blood Urea Nitrogen 71(H) 8 - 18 mg/dL [facility] Comment:result rechecked-[facility] [[email or web address]] Creatinine 1.64(H) 0.70 - 1.20 mg/dL [facility] Comment:result rechecked-[facility] [[email or web address]] Sodium 137 135 - 145 mmol/L [facility] Potassium 3.7 3.5 - 5.0 mmol/L [facility] Comment: Please note: ??Patients with WBC >100,000 may have falsely elevated Potassium levels. ??For accurate Potassium quantification in these patients send serum separator tube (gold top) for subsequent determinations. ??Contact the Clinical Chemistry Laboratory if there are any questions. Chloride 100 98 - 107 mmol/L [facility] Carbon Dioxide 24 22 - 31 mmol/L [facility] Anion Gap 13 5 - 15 mmol/L [facility] Calcium 9.7 8.5 - 10.5 mg/dL [facility] Est Glomerular Filtration Rate 34(L) >=60 mL/min/1. 73 m?? [facility] Comment: This patient's estimated [...] Agency Comment Spec In Lab Mara Serrano HAM MARKER CHEMISTRY ORDERABL ES [facility] [place] [address] * XR Chest PA & Lateral (Generic) [...] signed by: Ghassan Reyes MD, [facility]([phone]), at 05/17/2023 11:46 AM Alirio Hudson MD IMG DX ORDERABLES * (ABNORMAL) Comprehensive metabolic panel (non-fasting) (05/17/2023 4:35 AM EDT) Glucose 89 65 - 199 mg/dL [facility] Comment:Diabetes: >=200 mg/d L plus symptoms Blood Urea Nitrogen 97(H) 8 - 18 mg/dL [facility] Creatinine 2.97(H) 0.70 - 1.20 mg/dL [facility] Comment:result rechecked-OG Sodium 135 135 - 145 mmol/L [facility] Potassium 4.1 3.5 - 5.0 mmol/L [facility] Comment: Please note: ??Patients with WBC >100,000 may have falsely elevated Potassium levels. ??For accurate Potassium quantification in these patients send serum separator tube (gold top) for subsequent determinations. ??Contact the Clinical Chemistry Laboratory if there are any questions. Chloride 97(L) 98 - 107 mmol/L [facility] Carbon Dioxide 22 22 - 31 mmol/L [facility] Anion Gap 16(H) 5 - 15 mmol/L [facility] Calcium 9.6 8.5 - 10.5 mg/dL [facility] Protein, Total 6.5 6.1 - 8.0 g/dL [facility] Albumin 3.7 3.2 - 5.2 g/dL [facility] Aspartate Aminotransferase 58(H) 0 - 30 unit/L [facility] Alanine Aminotransferase 66(H) 0 - 30 unit/L [facility] Alkaline Phosphatase 86 35 - 105 unit/L [facility] Bilirubin, Total 0.6 0.2 - 1.3 mg/dL [facility] Est Glomerular Filtration Rate 17(L) >=60 mL/min/1. 73 m?? [facility] Comment: This patient's estimated [...] Lab Alirio Hudson MD CHEMISTRY ORDERABLE S [facility] [place] [address] * Potassium (05/16/2023 11:15 PM EDT) Potassium 3.7 3.5 - 5.0 mmol/L [facility] Comment: Please note: ??Patients [...] CHEMISTRY ORDERABLE S Performing Organization Address City/[facility]/ZIP Co de Phone Number [facility] [place] [address] * Magnesium (05/16/2023 5:22 PM EDT) Magnesium 0.96 0.69 - 1.07 mmol/L [facility] Blood 05/16/2023 5:22 PM EDT 05/16/2023 5:27 PM EDT Narrative Resulting Agency Comment Spec In Lab Alirio Hudson MD CHEMISTRY ORDERABLE S Performing Organization Address [facility]/ZIP Co de Phone Number [facility] [place] [address] * (ABNORMAL) Basic Metabolic Panel (non-fasting) (05/16/2023 5:22 PM EDT) Glucose 106 65 - 199 mg/dL [facility] Comment:Diabetes: >=200 mg/d L plus symptoms Blood Urea Nitrogen 103(H) 8 - 18 mg/dL [facility] Creatinine 3.91(H) 0.70 - 1.20 mg/dL [facility] Comment:result rechecked-imm Sodium 132(L) 135 - 145 mmol/L [facility] Potassium 3.6 3.5 - 5.0 mmol/L [facility] Comment: Please note: ??Patients with WBC >100,000 may have falsely elevated Potassium levels. ??For accurate Potassium quantification in these patients send serum separator tube (gold top) for subsequent determinations. ??Contact the Clinical Chemistry Laboratory if there are any questions. Chloride 92(L) 98 - 107 mmol/L [facility] Carbon Dioxide 22 22 - 31 mmol/L [facility] Anion Gap 18(H) 5 - 15 mmol/L [facility] Calcium 9.7 8.5 - 10.5 mg/dL [facility] Est Glomerular Filtration Rate 12(L) >=60 mL/min/1. 73 m?? [facility] Comment: This patient's estimated [...] Lab Alirio Hudson MD CHEMISTRY ORDERABLE S [facility] [place] [address] * (ABNORMAL) Potassium (05/16/2023 11:43 AM EDT) Potassium 3.3(L) 3.5 - 5.0 mmol/L [facility] Comment: Please note: ??Patients [...] Lab Alirio Hudson MD CHEMISTRY ORDERABLE S [facility] [place] [address] * (ABNORMAL) Ferritin (05/16/2023 4:41 AM EDT) Ferritin 1,813(H) 30 - 400 ng/mL [facility] Comment: Pediatric reference ranges not verified at [facility] [place], interpret with caution. Reference ranges for females greater than 50 years of age approach values for men, i.e., 30-400 ng/mL. Blood 05/16/2023 4:41 AM EDT 05/16/2023 4:54 AM EDT Narrative Resulting Agency Comment Spec In Lab Kristopher Ayoub MD CHEMISTRY ORDERABLES Performing Organization Address City/[facility]/ZIP Co de Phone Number [facility] [place] [address] * (ABNORMAL) PTH (05/16/2023 4:41 AM EDT) Parathyroid Hormone 120(H) 15 - 65 pg/mL [facility] Blood 05/16/2023 4:41 AM EDT 05/16/2023 4:54 AM EDT Narrative Resulting Agency Comment Spec In Lab Kristopher Ayoub MD CHEMISTRY ORDERABLES Performing Organization Address City/[facility]/ZIP Co de Phone Number [facility] [place] [address] * Vitamin D, 25-Hydroxy (05/16/2023 4:41 AM EDT) Vitamin D Total 25 OH 33 21 - 100 ng/mL [facility] Vit D Interp Sufficient [facility] Blood 05/16/2023 4:41 AM EDT 05/16/2023 4:54 AM EDT Narrative Resulting Agency Comment Spec In Lab Kristopher Ayoub MD CHEMISTRY ORDERABLES Performing Organization Address City/[facility]/ZIP Co de Phone Number [facility] [place] [address] * (ABNORMAL) Blood Gas Venous ([facility]) (05/16/2023 4:22 AM EDT) pH, Venous 7.41 7.32 - 7.42 [facility] PCO2, Venous 32(L) 41 - 51 mmHg [facility] PO2, Venous 73(H) 25 - 40 mmHg [facility] Bicarbonate, Venous 19.6 mmol/L [facility] Base Excess, Venous -5.1 mmol/L [facility] Hgb Blood Gas 9.7(L) 11.7 - 15.5 g/dL [facility] Oxyhemoglobin, Venous 92.8 % [facility] Carboxyhemoglob in, Venous 0.1 % [facility] Comment: Nonsmokers: 0.5-1.5% COHB Smokers: Variable, but usually less than 10% Toxic: 20-30% COHB Lethal: Greater than 60% COHB Methemoglobin, Venous 0.3 <=1.5 % [facility] Na Whole Blood 130(L) 135 - 145 mmol/L [facility] K Whole Blood 3.7 3.5 - 5.0 mmol/L [facility] Comment: Please note: Patients with WBC >100,000 may have falsely elevated Potassium levels. Contact the Clinical Chemistry Laboratory if there are any questions. ICa Whole Blood 1.15 1.15 - 1.33 mmol/L [facility] Comment: Note: ??Total bilirubin higher than 20 mg/dL may lead to falsely low ionized calcium. CL Whole Blood 95(L) 98 - 107 mmol/L [facility] Gluc Whole Bld 82 65 - 199 mg/dL [facility] Comment:Diabetes: >=200 mg/d L plus symptoms Lactate WB 1.1 0.5 - 2.2 mmol/L [facility] Blood Gas Source Venous [facility] Blood Venous Draw / Unknown 05/16/2023 4:22 AM EDT 05/16/2023 4:31 AM EDT Narrative Resulting Agency Comment Spec In Lab Bonita TOBAR CHEMISTRY ORDERABLES [facility] [place] [address] * (ABNORMAL) Differential, Automated (05/16/2023 4:20 AM EDT) Pathologist [facility] Neutrophil % 84.1 % [facility] Neutrophil Absolute 6.22(H) 1.70 - 6.10 x10(3)/mc L [facility] Lymph % 5.8 % [facility] Lymphocytes Abs 0.4(L) 0.9 - 3.2 x10(3)/mc L [facility] Monocyte % 8.8 % [facility] Monocyte Abs 0.6 0.3 - 0.9 x10(3)/ L [facility] Eos % 0.4 % [facility] Eosinophils Abs 0.0 0.0 - 0.4 x10(3)/ L [facility] Basophil % 0.0 % [facility] Baso Absolute 0.0 0.0 - 0.1 x10(3)/ L [facility] Immature Gran % 0.90 % [facility] Comment: Immature granulocytes(IG's)percentage and absolute count will include metamyelocytes, myelocytes, and promyelocytes. Blood smears from CBCs yielding IG's will be scanned manually for concordance. If this scan disagrees with the automated IG or if promyelocytes are noted, a manual differential will be performed. Immature Gran Absolute 0.07(H) 0.00 - 0.04 x10(3)/ L [facility] Blood 05/16/2023 4:20 AM EDT 05/16/2023 4:29 AM EDT Narrative Resulting Agency Comment Spec In Lab James Agustin MD HEMATOLOGY ORDER JODIE [facility] [place] [address] * (ABNORMAL) Hemogram (05/16/2023 4:20 AM EDT) Pathologist [facility] White Blood Cell 7.4 4.0 - 9.5 x10(3)/mc L [facility] Red Blood Cell 2.40(L) 4.00 - 5.21 x10(6)/[facility] Hemoglobin 7.8(L) 11.7 - 15.5 g/dL [facility] Hematocrit 22.5(L) 35.7 - 45.8 % [facility] Mean Cell Volume 93.8 82.6 - 94.4 fL [facility] Mean Cell Hemoglobin 32.5(H) 27.1 - 32.0 pg [facility] Mean Cell Hemoglobin Concentration 34.7 31.7 - 35.0 g/dL [facility] Platelet 120(L) 145 - 357 x10(3)/mc L [facility] RDW Standard Deviation 42.9 37.0 - 46.0 fL [facility] RDW coefficient of variation 12.9 11.5 - 14.1 % [facility] Mean Platelet Volume 11.3 7.6 - 12.9 fL [facility] NRBC% auto 0.7 % [facility] NRBC Absolute 0.050(H) 0.000 - 0.000 x10(3)/mc L [facility] Blood 05/16/2023 4:20 AM EDT 05/16/2023 4:29 AM EDT Narrative Resulting Agency Comment Spec In Lab James Agustin MD HEMATOLOGY ORDER JODIE [facility] [place] [address] * (ABNORMAL) Basic Metabolic Panel (non-fasting) (05/16/2023 4:20 AM EDT) Glucose 89 65 - 199 mg/dL [facility] Comment:Diabetes: >=200 mg/d L plus symptoms Blood Urea Nitrogen 108(H) 8 - 18 mg/dL [facility] Creatinine 4.74(H) 0.70 - 1.20 mg/dL [facility] Comment:result rechecked-[facility] Sodium 132(L) 135 - 145 mmol/L [facility] Potassium 3.9 3.5 - 5.0 mmol/L [facility] Comment: Please note: ??Patients with WBC >100,000 may have falsely elevated Potassium levels. ??For accurate Potassium quantification in these patients send serum separator tube (gold top) for subsequent determinations. ??Contact the Clinical Chemistry Laboratory if there are any questions. Chloride 95(L) 98 - 107 mmol/L [facility] Carbon Dioxide 18(L) 22 - 31 mmol/L [facility] Anion Gap 19(H) 5 - 15 mmol/L [facility] Calcium 9.2 8.5 - 10.5 mg/dL [facility] Est Glomerular Filtration Rate 10(L) >=60 mL/min/1. 73 m?? [facility] Comment: This patient's estimated [...] CHEMISTRY ORDERABLE S Performing Organization Address City/[facility]/ZIP Co de Phone Number [facility] [place] [address] * (ABNORMAL) Iron and TIBC (05/16/2023 4:20 AM EDT) Iron 31 30 - 150 mcg/dL [facility] TIBC 259 250 - 450 mcg/dL [facility] Iron Saturation 12(L) 20 - 50 % [facility] Blood 05/16/2023 4:20 AM EDT 05/16/2023 4:29 AM EDT Narrative Resulting Agency Comment Spec In Lab Kristopher Ayoub MD CHEMISTRY ORDERABLES Performing Organization Address City/[facility]/ZIP Co de Phone Number [facility] [place] [address] * (ABNORMAL) Basic Metabolic Panel (non-fasting) (05/15/2023 12:50 AM EDT) Glucose 101 65 - 199 mg/dL [facility] Comment:Diabetes: >=200 mg/d L plus symptoms Blood Urea Nitrogen 109(H) 8 - 18 mg/dL [facility] Creatinine 5.62(H) 0.70 - 1.20 mg/dL [facility] Comment:result rechecked-KS Sodium 131(L) 135 - 145 mmol/L [facility] Comment:result rechecked-KS Potassium 3.7 3.5 - 5.0 mmol/L [facility] Comment: result rechecked-KS Please note: ??Patients with WBC >100,000 may have falsely elevated Potassium levels. ??For accurate Potassium quantification in these patients send serum separator tube (gold top) for subsequent determinations. ??Contact the Clinical Chemistry Laboratory if there are any questions. Chloride 92(L) 98 - 107 mmol/L [facility] Comment:result rechecked-KS Carbon Dioxide 18(L) 22 - 31 mmol/L [facility] Comment:result rechecked-KS Anion Gap 21(H) 5 - 15 mmol/L [facility] Calcium 8.9 8.5 - 10.5 mg/dL [facility] Est Glomerular Filtration Rate 8(L) >=60 mL/min/1. 73 m?? [facility] Comment: This patient's estimated [...] Lab Alirio Hudson MD CHEMISTRY ORDERABLE S [facility] [place] [address] * (ABNORMAL) Hemogram (05/15/2023 12:50 AM EDT) White Blood Cell 9.1 4.0 - 9.5 x10(3)/mc L [facility] Red Blood Cell 2.19(L) 4.00 - 5.21 x10(6)/mc L [facility] Hemoglobin 7.2(L) 11.7 - 15.5 g/dL [facility] Hematocrit 20.6(L) 35.7 - 45.8 % [facility] Mean Cell Volume 94.1 82.6 - 94.4 fL [facility] Mean Cell Hemoglobin 32.9(H) 27.1 - 32.0 pg [facility] Mean Cell Hemoglobin Concentration 35.0 31.7 - 35.0 g/dL [facility] Platelet 109(L) 145 - 357 x10(3)/mc L [facility] RDW Standard Deviation 43.6 37.0 - 46.0 fL [facility] RDW coefficient of variation 12.9 11.5 - 14.1 % [facility] Mean Platelet Volume 10.4 7.6 - 12.9 fL [facility] NRBC% auto 2.1 % [facility] NRBC Absolute 0.190(H) 0.000 - 0.000 x10(3)/ L [facility] Blood 05/15/2023 12:5 0 AM EDT 05/15/2023 12:52 AM EDT Narrative Resulting Agency Comment Spec In Lab Alirio Hudson MD HEMATOLOGY ORDERABL ES Performing Organization Address City/State/[facility] Co de Phone Number [facility] [place] [address] * (ABNORMAL) BLOOD GAS 2 VENOUS (05/15/2023 12:49 AM EDT) pH, Venous 7.33 7.32 - 7.42 [facility] PCO2, Venous 37(L) 41 - 51 mmHg [facility] PO2, Venous 34 25 - 40 mmHg [facility] Bicarbonate, Venous 19.1 mmol/L [facility] Base Excess, Venous -6.8 mmol/L [facility] Hgb Blood Gas 10.8(L) 11.7 - 15.5 g/dL [facility] Oxyhemoglobin, Venous 58.1 % [facility] Carboxyhemoglob in, Venous 0.3 % [facility] Comment: Nonsmokers: 0.5-1.5% COHB Smokers: Variable, but usually less than 10% Toxic: 20-30% COHB Lethal: Greater than 60% COHB Methemoglobin, Venous 0.6 <=1.5 % [facility] Na Whole Blood 136 135 - 145 mmol/L [facility] K Whole Blood 3.7 3.5 - 5.0 mmol/L [facility] Comment: Please note: Patients with WBC >100,000 may have falsely elevated Potassium levels. Contact the Clinical Chemistry Laboratory if there are any questions. ICa Whole Blood 1.12(L) 1.15 - 1.33 mmol/L [facility] Comment: Note: ??Total bilirubin higher than 20 mg/dL may lead to falsely low ionized calcium. CL Whole Blood 95(L) 98 - 107 mmol/L [facility] Gluc Whole Bld 101 65 - 199 mg/dL [facility] Comment:Diabetes: >=200 mg/d L plus symptoms Lactate WB 1.3 0.5 - 2.2 mmol/L [facility] Flow, Mike 1.0 LPM [facility] Blood Gas Source Venous [facility] Blood 05/15/2023 12:4 9 AM EDT 05/15/2023 12:49 AM EDT Alirio Hudson MD POINT OF CARE TEST ORDERABLES Performing Organization Address City/State[facility] de Phone Number [facility] [place] [address] * US Retroperitoneal Complete (05/14/2023 3:53 PM [...] who have questions, please contact the health campground caretaker that requested your imaging first. ? Hayden Robledo, Staff Physician Electronically Signed Final Report ?? 05/14/2023 04:39 pm Narrative 05/14/2023 4:39 PM EDT Renal ? (Signed Final 05/14/2023 04:39 pm) PATIENT INFO: ID #: ? [id number] ?: ??[birth year] (67 yrs)(F) Name: ? PURNIMA THACKER ?Visit Date: 05/14/2023 03:44 pm PERFORMED BY: Attending: ?Meena CULP, Hayden Stafford Resident: ? Nell CULP, Anand August Performed By: ? Consuelo Tello RDMS Referred By: ?ALIRIO HUDSON Location: ? [facility] SERVICE(S) PROVIDED: URETRO - Retroperitoneal Complete - [id number] ? [id number] INDICATIONS: [facility] COMPARISON: CT: Abdomen/Pelvis 05/11/23 RIGHT [...] 05/14/2023 04:39 pm) PATIENT INFO: ID #: [id number] : 55 (67 yrs)(F) Name: PURNIMA THACKER Visit Date: 05/14/2023 03:44 pm PERFORMED BY: Attending: Hayden Robledo MD Resident: Anand Camejo MD Performed By: Consuelo Tello RDMS Referred By: ALIRIO HUDSON Location: [facility] SERVICE(S) PROVIDED: URETRO - Retroperitoneal Complete - [id number] INDICATIONS: [facility]ANS COMPARISON: CT: Abdomen/Pelvis 05/11/23 RIGHT [...] who have questions, please contact the health campground caretaker that requested your imaging first. Hayden Robledo, Staff Physician Electronically Signed Final Report 05/14/2023 04:39 pm Alirio Hudson MD IMG US GEN ORDERABL ES * CK (05/14/2023 3:17 PM EDT) Creatine Kinase 123 0 - 160 unit/L [facility] Blood 05/14/2023 3:17 PM EDT 05/14/2023 3:31 PM EDT Narrative Resulting Agency Comment Spec In Lab Alirio Hudson MD CHEMISTRY ORDERABLE S Performing Organization Address City/[facility]/ZIP Co de Phone Number [facility] [place] [address] * (ABNORMAL) Uric acid (05/14/2023 3:17 PM EDT) Uric Acid 14.9(H) 2.5 - 6.5 mg/dL [facility] Blood 05/14/2023 3:17 PM EDT 05/14/2023 3:31 PM EDT Narrative Resulting Agency Comment Spec In Lab Alirio Hudson MD CHEMISTRY ORDERABLE S Performing Organization Address City/[facility]/ZIP Co de Phone Number [facility] [place] [address] * (ABNORMAL) Osmolality (05/14/2023 3:17 PM EDT) Osmolality 311(H) 275 - 295 mOsm/kg [facility] Blood 05/14/2023 3:17 PM EDT 05/14/2023 3:31 PM EDT Narrative Resulting Agency Comment Spec In Lab Alirio Hudson MD CHEMISTRY ORDERABLE S Performing Organization Address City/[facility]/ZIP [place] [address] * (ABNORMAL) Differential, Automated (05/14/2023 1:10 AM EDT) Neutrophil % 87.2 % [facility] Neutrophil Absolute 9.74(H) 1.70 - 6.10 x10(3)/mc L [facility] Lymph % 3.9 % [facility] Lymphocytes Abs 0.4(L) 0.9 - 3.2 x10(3)/mc L [facility] Monocyte % 7.9 % [facility] Monocyte Abs 0.9 0.3 - 0.9 x10(3)/mc L [facility] Eos % 0.0 % [facility] Eosinophils Abs 0.0 0.0 - 0.4 x10(3)/mc L [facility] Basophil % 0.1 % [facility] Baso Absolute 0.0 0.0 - 0.1 x10(3)/mc L [facility] Immature Gran % 0.90 % [facility] Comment: Immature granulocytes(IG's)percentage and absolute count will include metamyelocytes, myelocytes, and promyelocytes. Blood smears from CBCs yielding IG's will be scanned manually for concordance. If this scan disagrees with the automated IG or if promyelocytes are noted, a manual differential will be performed. Immature Gran Absolute 0.10(H) 0.00 - 0.04 x10(3)/mc L [facility] Blood 05/14/2023 1:10 AM EDT 05/14/2023 1:24 AM EDT Narrative Resulting Agency Comment Spec In Lab Bonita TOBAR HEMATOLOGY ORDERABLE S Performing Organization Address City/[facility]/ZIP Co de Phone Number [facility] [place] [address] * (ABNORMAL) Hemogram (05/14/2023 1:10 AM EDT) White Blood Cell 11.2(H) 4.0 - 9.5 x10(3)/mc L [facility] Red Blood Cell 2.19(L) 4.00 - 5.21 x10(6)/mc L [facility] Hemoglobin 7.2(L) 11.7 - 15.5 g/dL [facility] Hematocrit 20.3(L) 35.7 - 45.8 % [facility] Mean Cell Volume 92.7 82.6 - 94.4 fL [facility] Mean Cell Hemoglobin 32.9(H) 27.1 - 32.0 pg [facility] Mean Cell Hemoglobin Concentration 35.5(H) 31.7 - 35.0 g/dL [facility] Platelet 112(L) 145 - 357 x10(3)/mc L [facility] RDW Standard Deviation 41.4 37.0 - 46.0 fL [facility] RDW coefficient of variation 12.5 11.5 - 14.1 % [facility] Mean Platelet Volume 10.4 7.6 - 12.9 fL [facility] NRBC% auto 1.5 % [facility] NRBC Absolute 0.170(H) 0.000 - 0.000 x10(3)/mc L [facility] Blood 05/14/2023 1:10 AM EDT 05/14/2023 1:24 AM EDT Narrative Resulting Agency Comment Spec In Lab Bonita TOBAR HEMATOLOGY ORDERABLE S [facility] [place] [address] * (ABNORMAL) Comprehensive metabolic panel (non-fasting) (05/14/2023 1:10 AM EDT) Glucose 120 65 - 199 mg/dL [facility] Comment:Diabetes: >=200 mg/d L plus symptoms Blood Urea Nitrogen 98(H) 8 - 18 mg/dL [facility] Creatinine 4.80(H) 0.70 - 1.20 mg/dL [facility] Comment:result rechecked-ssc Sodium 132(L) 135 - 145 mmol/L [facility] Potassium 4.1 3.5 - 5.0 mmol/L [facility] Comment: Please note: ??Patients with WBC >100,000 may have falsely elevated Potassium levels. ??For accurate Potassium quantification in these patients send serum separator tube (gold top) for subsequent determinations. ??Contact the Clinical Chemistry Laboratory if there are any questions. Chloride 94(L) 98 - 107 mmol/L [facility] Carbon Dioxide 18(L) 22 - 31 mmol/L [facility] Anion Gap 20(H) 5 - 15 mmol/L [facility] Calcium 8.5 8.5 - 10.5 mg/dL [facility] Protein, Total 5.8(L) 6.1 - 8.0 g/dL [facility] Albumin 3.6 3.2 - 5.2 g/dL [facility] Aspartate Aminotransferase 319(H) 0 - 30 unit/L [facility] Alanine Aminotransferase 437(H) 0 - 30 unit/L [facility] Alkaline Phosphatase 86 35 - 105 unit/L [facility] Bilirubin, Total 0.4 0.2 - 1.3 mg/dL [facility] Est Glomerular Filtration Rate 9(L) >=60 mL/min/1. 73 m?? [facility] Comment: This patient's estimated [...] Lab Alirio Hudson MD CHEMISTRY ORDERABLE S [facility] [place] [address] * APTT (05/13/2023 10:15 AM EDT) Partial Thromboplastin Time 27 25 - 37 sec [facility] Comment: The PTT is NOT appropriate for heparin monitoring. Use the Anti-Xa level for heparin monitoring (HEP UFH) or LMWH monitoring (HEP LMW). A PTT less than 37 seconds generally indicates adequate hemostasis. Blood 05/13/2023 10:1 5 AM EDT 05/13/2023 10:46 AM EDT Narrative Resulting Agency Comment Spec In Lab Alirio Hudson MD HEMATOLOGY ORDERABL ES Performing Organization Address [facility] de Phone Number [facility] [place] [address] * (ABNORMAL) Prothrombin Time (05/13/2023 10:15 AM EDT) Prothrombin Time 14.6(H) 9.4 - 12.5 sec [facility] International Normalization Ratio 1.3 [facility] Comment: An INR <2.0 indicates [...] MD HEMATOLOGY ORDERABL ES Performing Organization Address [facility] Co de Phone Number [facility] [place] [address] * EKG 12 Lead (05/13/2023 9:22 AM EDT) Ventricular rate 92 BPM MUSE SYSTEM Atrial Rate 92 BPM MUSE SYSTEM P-R Interval 140 ms MUSE SYSTEM QRS Duration 104 ms MUSE SYSTEM Q-T Interval 384 ms MUSE SYSTEM QTC Calculated (Bezet) 474 ms MUSE SYSTEM Calculated P [place] 33 degrees MUSE SYSTEM Calculated R [place] 41 degrees MUSE SYSTEM Calculated T [place] -35 degrees MUSE SYSTEM INTERPRETATION Sinus rhythm with frequent Premature ventricular complexes Septal infarct , age undetermined ST & T wave abnormality, consider lateral ischemia Abnormal ECG When compared with ECG of 12-MAY-2023 10:10, Premature ventricular complexes are now Present I personally reviewed the tracing and edited the fellows interpretation Confirmed by fellow MD Anitha, [email or web address] ([id number]) on 05/13/2023 3:25:30 PM Confirmed by Maxx Best ([id number]) on 05/13/2023 8:30:56 PM MUSE SYSTEM 05/13/2023 9:22 AM EDT 05/13/2023 8:30 PM EDT Alirio Hudson MD ECG ORDERABLES MUSE SYSTEM * (ABNORMAL) Differential, Automated (05/13/2023 1:15 AM EDT) Neutrophil % 88.1 % [facility] Neutrophil Absolute 7.62(H) 1.70 - 6.10 x10(3)/mc L [facility] Lymph % 3.1 % [facility] Lymphocytes Abs 0.3(L) 0.9 - 3.2 x10(3)/mc L [facility] Monocyte % 7.9 % [facility] Monocyte Abs 0.7 0.3 - 0.9 x10(3)/mc L [facility] Eos % 0.0 % [facility] Eosinophils Abs 0.0 0.0 - 0.4 x10(3)/mc L [facility] Basophil % 0.1 % [facility] Baso Absolute 0.0 0.0 - 0.1 x10(3)/mc L [facility] Immature Gran % 0.80 % [facility] Comment: Immature granulocytes(IG's)percentage and absolute count will include metamyelocytes, myelocytes, and promyelocytes. Blood smears from CBCs yielding IG's will be scanned manually for concordance. If this scan disagrees with the automated IG or if promyelocytes are noted, a manual differential will be performed. Immature Gran Absolute 0.07(H) 0.00 - 0.04 x10(3)/mc L [facility] Blood 05/13/2023 1:15 AM EDT 05/13/2023 1:29 AM EDT Narrative Resulting Agency Comment Spec In Lab Lorri TOBAR HEMATOLOGY ORDERABLE S [facility] [place] [address] * (ABNORMAL) Hemogram (05/13/2023 1:15 AM EDT) White Blood Cell 8.6 4.0 - 9.5 x10(3)/mc L [facility] Red Blood Cell 2.37(L) 4.00 - 5.21 x10(6)/mc L [facility] Hemoglobin 7.8(L) 11.7 - 15.5 g/dL [facility] Hematocrit 22.2(L) 35.7 - 45.8 % [facility] Mean Cell Volume 93.7 82.6 - 94.4 fL [facility] Mean Cell Hemoglobin 32.9(H) 27.1 - 32.0 pg [facility] Mean Cell Hemoglobin Concentration 35.1(H) 31.7 - 35.0 g/dL [facility] Platelet 130(L) 145 - 357 x10(3)/mc L [facility] RDW Standard Deviation 41.7 37.0 - 46.0 fL [facility] RDW coefficient of variation 12.5 11.5 - 14.1 % [facility] Mean Platelet Volume 10.2 7.6 - 12.9 fL [facility] NRBC% auto 0.5 % [facility] NRBC Absolute 0.040(H) 0.000 - 0.000 x10(3)/mc L [facility] Blood 05/13/2023 1:15 AM EDT 05/13/2023 1:29 AM EDT Narrative Resulting Agency Comment Spec In Lab Lorri TOBAR HEMATOLOGY ORDERABLE S Performing Organization Address City/[facility]/ZIP Co de Phone Number [facility] [place] [address] * (ABNORMAL) Hepatic Function Panel (05/13/2023 1:15 AM EDT) Protein, Total 5.5(L) 6.1 - 8.0 g/dL [facility] Albumin 3.0(L) 3.2 - 5.2 g/dL [facility] Aspartate Aminotransferase 792(H) 0 - 30 unit/L [facility] Alanine Aminotransferase 903(H) 0 - 30 unit/L [facility] Alkaline Phosphatase 85 35 - 105 unit/L [facility] Bilirubin, Total 0.5 0.2 - 1.3 mg/dL [facility] Bilirubin, Direct 0.3 0.0 - 0.3 mg/dL [facility] Blood 05/13/2023 1:15 AM EDT 05/13/2023 1:29 AM EDT Narrative Resulting Agency Comment Spec In Lab Alirio Hudson MD CHEMISTRY ORDERABLE S [facility] [place] [address] * (ABNORMAL) Basic Metabolic Panel (non-fasting) (05/13/2023 1:15 AM EDT) Pathologist [facility] Glucose 107 65 - 199 mg/dL [facility] Comment:Diabetes: >=200 mg/d L plus symptoms Blood Urea Nitrogen 82(H) 8 - 18 mg/dL [facility] Creatinine 3.15(H) 0.70 - 1.20 mg/dL [facility] Comment:result rechecked-JSJ Sodium 132(L) 135 - 145 mmol/L [facility] Potassium 3.8 3.5 - 5.0 mmol/L [facility] Comment: Please note: ??Patients with WBC >100,000 may have falsely elevated Potassium levels. ??For accurate Potassium quantification in these patients send serum separator tube (gold top) for subsequent determinations. ??Contact the Clinical Chemistry Laboratory if there are any questions. Chloride 95(L) 98 - 107 mmol/L [facility] Carbon Dioxide 20(L) 22 - 31 mmol/L [facility] Anion Gap 17(H) 5 - 15 mmol/L [facility] Calcium 8.3(L) 8.5 - 10.5 mg/dL [facility] Est Glomerular Filtration Rate 16(L) >=60 mL/min/1. 73 m?? [facility] Comment: This patient's estimated [...] Lab Alirio Hudson MD CHEMISTRY ORDERABLE S [facility] [place] [address] * (ABNORMAL) BLOOD GAS 2 ARTERIAL (05/12/2023 3:57 PM EDT) pH, Arterial 7.39 7.35 - 7.45 [facility] PCO2, Arterial 33(L) 35 - 45 mmHg [facility] PO2, Arterial 101 85 - 104 mmHg [facility] Bicarbonate, Arterial 19.5(L) 20.0 - 26.0 mmol/L [facility] Base Excess, Arterial -5.5(L) -3.0 - 3.0 mmol/L [facility] Hgb Blood Gas 9.8(L) 11.7 - 15.5 g/dL [facility] Oxyhemoglobin, Arterial 95.2 94.0 - 97.0 % [facility] Carboxyhemoglob in, Arterial 0.2 % [facility] Comment: Nonsmokers: 0.5-1.5% COHB Smokers: Variable, but usually less than 10% Toxic: 20-30% COHB Lethal: Greater than 60% COHB Methemoglobin, Arterial 0.8 <=1.5 % [facility] Na Whole Blood 129(L) 135 - 145 mmol/L [facility] K Whole Blood 3.8 3.5 - 5.0 mmol/L [facility] Comment: Please note: Patients with WBC >100,000 may have falsely elevated Potassium levels. Contact the Clinical Chemistry Laboratory if there are any questions. ICa Whole Blood 1.05(L) 1.15 - 1.33 mmol/L [facility] Comment: Note: ??Total bilirubin higher than 20 mg/dL may lead to falsely low ionized calcium. CL Whole Blood 96(L) 98 - 107 mmol/L [facility] Gluc Whole Bld 178 65 - 199 mg/dL [facility] Comment:Diabetes: >=200 mg/d L plus symptoms. Lactate WB 1.5 0.5 - 2.2 mmol/L [facility] FIO2 Art 40 % [facility] PF Ratio Art 252 [facility] Blood 05/12/2023 3:57 PM EDT 05/12/2023 3:57 PM EDT Alirio Hudson MD POINT OF CARE TEST ORDERABLES Performing Organization Address [facility] Co de Phone Number [facility] [place] [address] * (ABNORMAL) Coox2 (05/12/2023 2:25 PM EDT) pO2, Coox [address] [facility] Hgb Blood Gas 9.5(L) 11.7 - 15.5 g/dL [facility] Oxyhemoglobin, Coox 59.9 % [facility] Carboxyhemoglo bin, Coox 0.3 % [facility] Comment: Nonsmokers: 0.5-1.5% COHB Smokers: Variable, but usually less than 10% Toxic: 20-30% COHB Lethal: Greater than 60% COHB Methemoglobin, Coox 0.7 <=1.5 % [facility] Source Coox Mixed Venous [facility] Blood 05/12/2023 2:25 PM EDT 05/12/2023 2:25 PM EDT Alirio Hudson MD POINT OF CARE TEST ORDERABLES Performing Organization Address [facility] Co de Phone Number [facility] [place] [address] * (ABNORMAL) BLOOD GAS 2 ARTERIAL (05/12/2023 2:23 PM EDT) pH, Arterial 7.37 7.35 - 7.45 [facility] PCO2, Arterial 36 35 - 45 mmHg [facility] PO2, Arterial 102 85 - 104 mmHg [facility] Bicarbonate, Arterial 20.4 20.0 - 26.0 mmol/L [facility] Base Excess, Arterial -4.8(L) -3.0 - 3.0 mmol/L [facility] Hgb Blood Gas 12.7 11.7 - 15.5 g/dL [facility] Oxyhemoglobin, Arterial 95.4 94.0 - 97.0 % [facility] Carboxyhemoglob in, Arterial 0.3 % [facility] Comment: Nonsmokers: 0.5-1.5% COHB Smokers: Variable, but usually less than 10% Toxic: 20-30% COHB Lethal: Greater than 60% COHB Methemoglobin, Arterial 0.7 <=1.5 % [facility] Na Whole Blood 129(L) 135 - 145 mmol/L [facility] K Whole Blood 3.7 3.5 - 5.0 mmol/L [facility] Comment: Please note: Patients with WBC >100,000 may have falsely elevated Potassium levels. Contact the Clinical Chemistry Laboratory if there are any questions. ICa Whole Blood 1.05(L) 1.15 - 1.33 mmol/L [facility] Comment: Note: ??Total bilirubin higher than 20 mg/dL may lead to falsely low ionized calcium. CL Whole Blood 95(L) 98 - 107 mmol/L [facility] Gluc Whole Bld 168 65 - 199 mg/dL [facility] Comment:Diabetes: >=200 mg/d L plus symptoms. Lactate WB 1.8 0.5 - 2.2 mmol/L [facility] FIO2 Art 40 % [facility] PF Ratio Art 255 [facility] Blood 05/12/2023 2:23 PM EDT 05/12/2023 2:23 PM EDT Alirio Hudson MD POINT OF CARE TEST ORDERABLES [facility] [place] [address] * (ABNORMAL) Troponin (05/12/2023 2:05 PM EDT) Troponin-T, High Sensitivity 1,022(H) <=14 ng/L [facility] Comment: This patient's troponin [...] can be found in the [facility] Test Catalog Troponin - [facility] Test Catalog Reference: Fourth [place] Definition of Myocardial Infarction. Journal of the [place] [employer] 2018;72:5868-0608 Blood 05/12/2023 2:05 PM EDT 05/12/2023 2:14 PM EDT Narrative Resulting Agency Comment Spec In Lab Alirio Hudson MD CHEMISTRY ORDERABLE S [facility] [place] [address] * (ABNORMAL) Hemoglobin (05/12/2023 2:05 PM EDT) Hemoglobin 8.5(L) 11.7 - 15.5 g/dL [facility] Blood 05/12/2023 2:05 PM EDT 05/12/2023 2:14 PM EDT Narrative Resulting Agency Comment Spec In Lab Alirio Hudson MD HEMATOLOGY ORDERABL ES Performing Organization Address [facility] Co de Phone Number [facility] [place] [address] * Potassium (05/12/2023 2:05 PM EDT) Potassium 3.9 3.5 - 5.0 mmol/L [facility] Comment: Please note: ??Patients [...] MD CHEMISTRY ORDERABLE S Performing Organization Address [facility] Co de Phone Number [facility] [place] [address] * (ABNORMAL) BLOOD GAS 2 ARTERIAL (05/12/2023 11:05 AM EDT) pH, Arterial 7.34(L) 7.35 - 7.45 [facility] PCO2, Arterial 42 35 - 45 mmHg [facility] PO2, Arterial 73(L) 85 - 104 mmHg [facility] Bicarbonate, Arterial 22.1 20.0 - 26.0 mmol/L [facility] Base Excess, Arterial -3.6(L) -3.0 - 3.0 mmol/L [facility] Hgb Blood Gas 9.3(L) 11.7 - 15.5 g/dL [facility] Oxyhemoglobin, Arterial 89.3(L) 94.0 - 97.0 % [facility] Carboxyhemoglob in, Arterial 0.2 % [facility] Comment: Nonsmokers: 0.5-1.5% COHB Smokers: Variable, but usually less than 10% Toxic: 20-30% COHB Lethal: Greater than 60% COHB Methemoglobin, Arterial 0.9 <=1.5 % [facility] Na Whole Blood 131(L) 135 - 145 mmol/L [facility] K Whole Blood 3.8 3.5 - 5.0 mmol/L [facility] Comment: Please note: Patients with WBC >100,000 may have falsely elevated Potassium levels. Contact the Clinical Chemistry Laboratory if there are any questions. ICa Whole Blood 1.04(L) 1.15 - 1.33 mmol/L [facility] Comment: Note: ??Total bilirubin higher than 20 mg/dL may lead to falsely low ionized calcium. CL Whole Blood 96(L) 98 - 107 mmol/L [facility] Gluc Whole Bld 152 65 - 199 mg/dL [facility] Comment:Diabetes: >=200 mg/d L plus symptoms. Lactate WB 2.8(H) 0.5 - 2.2 mmol/L [facility] FIO2 Art 40 % [facility] PF Ratio Art 182 [facility] Blood 05/12/2023 11:0 5 AM EDT 05/12/2023 11:05 AM EDT Alirio Hudson MD POINT OF CARE TEST ORDERABLES Performing Organization Address City/State/[facility] Co de Phone Number [facility] [place] [address] * (ABNORMAL) BLOOD GAS 2 ARTERIAL (05/12/2023 10:14 AM EDT) pH, Arterial 7.18(Criti gabrielle) 7.35 - 7.45 [facility] Comment:Noted by stringed instrument assembler. PCO2, Arterial 45 35 - 45 mmHg [facility] PO2, Arterial 186(H) 85 - 104 mmHg [facility] Bicarbonate, Arterial 16.2(L) 20.0 - 26.0 mmol/L [facility] Base Excess, Arterial -12.2(L) -3.0 - 3.0 mmol/L [facility] Hgb Blood Gas 10.0(L) 11.7 - 15.5 g/dL [facility] Oxyhemoglobin, Arterial 97.0 94.0 - 97.0 % [facility] Carboxyhemoglob in, Arterial 0.2 % [facility] Comment: Nonsmokers: 0.5-1.5% COHB Smokers: Variable, but usually less than 10% Toxic: 20-30% COHB Lethal: Greater than 60% COHB Methemoglobin, Arterial 0.9 <=1.5 % [facility] Na Whole Blood 129(L) 135 - 145 mmol/L [facility] K Whole Blood 3.6 3.5 - 5.0 mmol/L [facility] Comment: Please note: Patients with WBC >100,000 may have falsely elevated Potassium levels. Contact the Clinical Chemistry Laboratory if there are any questions. ICa Whole Blood 1.10(L) 1.15 - 1.33 mmol/L [facility] Comment: Note: ??Total bilirubin higher than 20 mg/dL may lead to falsely low ionized calcium. CL Whole Blood 97(L) 98 - 107 mmol/L [facility] Gluc Whole Bld 161 65 - 199 mg/dL [facility] Comment:Diabetes: >=200 mg/d L plus symptoms. Lactate WB 3.3(H) 0.5 - 2.2 mmol/L [facility] FIO2 Art 100 % [facility] PF Ratio Art 186 [facility] Blood 05/12/2023 10:1 4 AM EDT 05/12/2023 10:14 AM EDT Alirio Hudson MD POINT OF CARE TEST ORDERABLES Performing Organization Address City/State/[facility] Co de Phone Number [facility] [place] [address] * EKG 12 Lead (05/12/2023 10:10 AM EDT) Ventricular rate 116 BPM MUSE SYSTEM Atrial Rate 116 BPM MUSE SYSTEM P-R Interval 158 ms MUSE SYSTEM QRS Duration 114 ms MUSE SYSTEM Q-T Interval 348 ms MUSE SYSTEM QTC Calculated (Bezet) 483 ms MUSE SYSTEM Calculated P [place] 37 degrees MUSE SYSTEM Calculated R [place] 31 degrees MUSE SYSTEM Calculated T [place] -138 degrees MUSE SYSTEM INTERPRETATION Sinus tachycardia with intermittent aberrant ventricular conduction Possible Left atrial enlargement Incomplete left bundle block Left ventricular hypertrophy with repolarization abnormality ( Sokolow-Orozco , [place] product ) ST & T wave abnormality in Inferolateral leads Abnormal ECG When compared with ECG of 10-MAY-2023 13:16, ST & T wave abnormality is more pronounced in inferolateral leads I personally reviewed the tracing and edited the fellows interpretation Confirmed by fellow MD Anuja, Jim ([id number]) on 05/12/2023 1:04:20 PM Confirmed by MD Villareal Danette ([id number]) on 05/12/2023 9:28:34 PM MUSE SYSTEM 05/12/2023 [...] signed by: Chyna Johnson MD, [facility] ??([phone]), at 05/12/2023 10:08 AM Narrative 05/12/2023 10:08 AM EDT EXAMINATION: XR CHEST ONE VIEW CLINICAL HISTORY: Post TAVR TECHNIQUE: 1 view of the chest COMPARISON: Chest radiograph from earlier today FINDINGS: Interval placement of endotracheal tube with tip terminating 2 cm above the shira. Interval placement of enteric tube projecting along the expected course of the esophagus and outside the ezlbv-jb-rycg. Interval retraction of right IJ approach pulmonary [...] expected course ofthe esophagus and outside the wdkom-pk-etik. Interval retraction of right IJ approach pulmonary [...] signed by: Chyna Johnson MD, [facility]([phone]), at 05/12/2023 10:08 AM Alirio Hudson MD IMG DX ORDERABLES * ECHO LMTD W/O CONTRAST W LMTD SPEC DOPP COLOR DOPP (05/12/2023 9:23 AM EDT) EF 20 HEARTLAB SYSTEM Anatomical Region Laterality Modality Cardiac Other 05/12/2023 7:33 AM EDT Narrative 05/12/2023 10:18 AM EDT ? Echocardiogram Report Name: KIRSTIE PURNIMA M ?Study Date: 05/12/2023 07:33 AMBP: 96/63 mmHg ? Patient Location: [place] CA06 A : 1955 ? Height: 154 cm ? Account: [id number] Age: 67 yrs ? Weight: 75 kg Gender: Female ?BSA: 1.7 m2 Ordering Physician: RADHA HOLLINS Referring Physician: RADHA HOLLINS Performed By: Dilma Bee RDCS Reason For Study: Guidance for TAVR procedure Exam Location: [facility]. Interpretation Summary PRE TAVR: There is severe [...] mL/m2. POST TAVR: Normal function of the jdvoy-dm-dzayt prosthesis. See below for hemodynamic parameters. Slight improvement in left and right ventricular systolic function. LVEF now 20-25%. No pericardial effusion. See report for additional findings. Procedure Limited - 83076. Doppler - 40854. Color Doppler - 97647. Left Ventricle Left ventricle is of normal [...] Date: 307:33 AMBP: 96/63 mmHg Patient Location: [address] : 1955 Height: 154 cm Account: [id number] Age: 67 yrs Weight: 75 kg Gender: Female BSA: 1.7 m2 Ordering Physician: RADHA HOLLINS Referring Physician: RADHA HOLLINS Performed By: Dilma Bee RDCS Reason For Study: Guidance for TAVR procedure Exam Location: [facility]. Interpretation Summary PRE TAVR: There is severe [...] 28mL/m2. POST TAVR: Normal function of the ktcmz-fc-xowmk prosthesis. See belowfor hemodynamic parameters. Slight improvement in left and right ventricularsystolic function. LVEF now 20-25%. No pericardial effusion. See report for additional findings. Procedure Limited - 54322. Doppler - 78219. Color Doppler - 89807. Left Ventricle Left ventricle is of normal [...] Narrative 05/12/2023 2:37 PM EDT ?[facility] ? Cardiac Catheterization/Intervention Report ? Patient Name: Kirstie, Purnima M. ? Procedure Date: 05/12/2023 ? A #: [id number] ? Primary Physician: Antelmo Sharma ? Case #: [id number] ? File Name: [id number] ? Catheterization Order Number: [id number] ? [facility] ? Final Report [place], [place] ? Patient Name: ? Purnima Thacker ? ID#: ?[id number] ? : ?1955 ? Procedure Date: ? May 12, 2023 ? Case #: ? [id number] ? Room: ? 6 ? Case Physicians: ?Antelmo Sharma M.D. ?Start: ?08:03 ?Alirio Hudson M.D. ?Admission: ??05/08/2023 ?Lynda Mcgowan M.D. ? Discharge: ??05/22/2023 ?Fellow: ? Kristied Adair Tejeda ? Referring Physician: ??Mario Alberto Chin M.D. ? Procedures: ?* Coronary Angiography ?* Left Heart Catheterization ?* Coronary Stent Insertion ?* Transcatheter Aortic Valve Replacement ?* Vascular Closure Device Deployment ?* Temporary Pacemaker Insertion In Product Development Manager ?* Endotracheal Intubation By Non-Cath [...] ??A premounted 4.00 x 30 mm Nils Pope (MINNA) was ? deployed with a maximum [...] calculated STS risk score was 30.1%. A wbyhg-sm-dpzoo ?procedure was performed on the pre-existing bioprosthetic stented ?prosthesis. The priority of the kilyy-pi-vfahl procedure was Elective. ?The procedure was performed [...] Lai 3 Ultra RESILIA 23 mm THV (s/w=[id number]) transcatheter ?valve was inserted using standard technique. [...] nor was it given in the ?slab depiler operator. ?Recommended anti-platelet/anti-thrombotic regimen: ?Continue aspirin 81 [...] regimen. ? Comments: ?Successful right transfemoral TAVR Wppkj-ma-Aqivf with a 23 mm Lai 3 ?THV. [...] access site angiography, ?temporary pacemaker in slab depiler operator, intubation-non cath physician, vascular ?closure device, transthoracic echo ??and TAVR. Dr. Alirio Hudson M.D. ?performed the left heart catheterization, access site angiography, ?temporary pacemaker in slab depiler operator, vascular closure device, transthoracic ?echo , TAVR and CPR during cath. Dr. Lynda Mcgowan M.D. performed the ABG, ?anesthesia and intubation-non cath physician. ? Antelmo Sharma M.D. ? Electronically Signed by: Antelmo Sharma M.D. ? Report Finalized: 05/12/2023 ??14:31 ? Report Last Ammended: 07/01/2023 ??11:30 ? Procedure Note Antelmo Sharma MD - 07/01/2023 [facility] Cardiac Catheterization/Intervention Report Patient Name: Cuauhtemoc Thackerise Arabella Procedure Date: 05/12/2023 A #: [id number] Primary Physician: Antelmo Sharma Case #: [id number] File Name: [id number] Catheterization Order Number: [id number] [facility] [place]Report [place], [place] Patient Name: Purnima Thacker ID#:[id number] :1955 Procedure Date: May 12, 2023 Case #: [id number] Room: 6 Case Physicians: Antelmo Sharma M.D. Start: 08:03 Alirio Hudson M.D. Admission:05/08/2023 Lynda Mcgowan M.D. Discharge:05/22/2023 Fellow: Rebekah Tejeda M.D. Referring Physician: Mario Alberto Chin M.D. Procedures: * Coronary Angiography * Left Heart Catheterization * Coronary Stent Insertion * Transcatheter Aortic Valve Replacement * Vascular Closure Device Deployment * Temporary Pacemaker Insertion In Product Development Manager * Endotracheal Intubation By Non-Cath [...] A premounted 4.00 x 30 mm Nils Pope (MINNA) was deployed with a maximum inflation [...] calculated STS risk score was 30.1%. A sloww-aj-grxim procedure was performed on the pre-existing bioprosthetic stented prosthesis. The priority of the jssbh-hv-wvnsu procedure wasElective. The procedure was performed under Moderate sedation performed byLynda Mcgowan M.D. (see anesthesia report for additional details). Alirio Hudson M.D. participated in the case (see Cardiac Surgery reportfor additional details). The TAVR sheath was a 14 Fr Corona eSheath Introducer and theaccess site was femoral. Rapid ventricular pacing was performed. An Corona Lai 3 Ultra RESILIA 23 mm THV (s/i=[id number])transcatheter valve was inserted using standard technique. The [...] to nor was it given inthe slab depiler operator. Recommended anti-platelet/anti-thrombotic regimen: Continue aspirin 81 [...] this regimen. Comments: Successful right transfemoral TAVR Rdofx-aw-Jygms with a 23 mmSapien 3 THV. We [...] access site angiography, temporary pacemaker in slab depiler operator, intubation-non cath physician,vascular closure device, transthoracic echo and TAVR. Dr. Alirio Hudson M.D. performed the left heart catheterization, access site angiography, temporary pacemaker in slab depiler operator, vascular closure device,transthoracic echo , TAVR [...] pH, POC 7.20(Crit ical) 7.35 - 7.45 [facility] Comment:Critical value OK, C C Lab. pCO2, POC 42 35 - 45 mmHg [facility] pO2, POC 260(H) 85 - 104 mmHg [facility] Base Excess, POC -11.0(L) -3.0 - 3.0 mmol/L [facility] Bicarbonate, POC 16.7(L) 20.0 - 26.0 mmol/L [facility] Sodium, POC 129(L) 135 - 145 mmol/L [facility] POC Potassium 3.8 3.5 - 5.0 mmol/L [facility] Ionized Calcium, POC 1.12(L) 1.15 - 1.33 mmol/L [facility] POC Hematocrit 23.0(L) 34.0 - 45.0 % [facility] POC Calc Hgb 7.8(L) 11.2 - 15.7 g/dL [facility] Comment:The calculation of h emoglobin from hematocrit assumes a normal MCHC. POC Bgas Loc CC Lab [facility] Blood 05/12/2023 8:50 AM EDT 05/13/2023 12:00 PM EDT Alirio Hudson MD CHEMISTRY ORDERABLE S [facility] [place] [address] * (ABNORMAL) Point of Care Blood Gas Historical (05/12/2023 8:10 AM EDT) pH, POC 7.27(Crit ical) 7.35 - 7.45 [facility] Comment:Critical value OK, C C Lab. pCO2, POC 37 35 - 45 mmHg [facility] pO2, POC 29(Critic al) 85 - 104 mmHg [facility] Comment:Critical value OK, C C Lab. Base Excess, POC -10.0(L) -3.0 - 3.0 mmol/L [facility] Bicarbonate, POC 16.7(L) 20.0 - 26.0 mmol/L [facility] Sodium, POC 123(L) 135 - 145 mmol/L [facility] POC Potassium 4.0 3.5 - 5.0 mmol/L [facility] Ionized Calcium, POC 1.12(L) 1.15 - 1.33 mmol/L [facility] POC Hematocrit 27.0(L) 34.0 - 45.0 % [facility] POC Calc Hgb 9.2(L) 11.2 - 15.7 g/dL [facility] Comment:The calculation of h emoglobin from hematocrit assumes a normal MCHC. POC Bgas Loc CC Lab [facility] Blood 05/12/2023 8:10 AM EDT 05/13/2023 12:00 PM EDT Alirio Hudson MD CHEMISTRY ORDERABLE S [facility] [place] [address] * (ABNORMAL) Lactate, whole blood, send to lab ([facility] [place] [place]) (05/12/2023 7:00 AM EDT) Lactate WB 2.4(H) 0.5 - 2.2 mmol/L [facility] Blood 05/12/2023 7:00 AM EDT 05/12/2023 7:09 AM EDT Narrative Resulting Agency Comment Spec In Lab Radha Hollins MD CHEMISTRY ORDERABL ES Performing Organization Address City/[facility]/ZIP Co de Phone Number [facility] [place] [address] * (ABNORMAL) Comprehensive metabolic panel (non-fasting) (05/12/2023 6:00 AM EDT) Glucose 167 65 - 199 mg/dL [facility] Comment:Diabetes: >=200 mg/d L plus symptoms Blood Urea Nitrogen 67(H) 8 - 18 mg/dL [facility] Creatinine 2.01(H) 0.70 - 1.20 mg/dL [facility] Sodium 131(L) 135 - 145 mmol/L [facility] Potassium 4.3 3.5 - 5.0 mmol/L [facility] Comment: Please note: ??Patients with WBC >100,000 may have falsely elevated Potassium levels. ??For accurate Potassium quantification in these patients send serum separator tube (gold top) for subsequent determinations. ??Contact the Clinical Chemistry Laboratory if there are any questions. Chloride 97(L) 98 - 107 mmol/L [facility] Carbon Dioxide 14(L) 22 - 31 mmol/L [facility] Anion Gap 20(H) 5 - 15 mmol/L [facility] Calcium 8.6 8.5 - 10.5 mg/dL [facility] Protein, Total 6.3 6.1 - 8.0 g/dL [facility] Albumin 3.5 3.2 - 5.2 g/dL [facility] Aspartate Aminotransferase 1,435(H) 0 - 30 unit/L [facility] Alanine Aminotransferase 1,174(H) 0 - 30 unit/L [facility] Alkaline Phosphatase 100 35 - 105 unit/L [facility] Bilirubin, Total 0.9 0.2 - 1.3 mg/dL [facility] Est Glomerular Filtration Rate 27(L) >=60 mL/min/1. 73 m?? [facility] Comment: This patient's estimated [...] Lab Radha Hollins MD CHEMISTRY ORDERABL ES [facility] [place] [address] * (ABNORMAL) Coox2 (05/12/2023 5:08 AM EDT) pO2, Coox 24 mmHg [facility] Hgb Blood Gas 10.4(L) 11.7 - 15.5 g/dL [facility] Oxyhemoglobin, Coox 30.7 % [facility] Carboxyhemoglo bin, Coox 0.3 % [facility] Comment: Nonsmokers: 0.5-1.5% COHB Smokers: Variable, but usually less than 10% Toxic: 20-30% COHB Lethal: Greater than 60% COHB Methemoglobin, Coox 0.8 <=1.5 % [facility] Source Coox Mixed Venous [facility] Blood 05/12/2023 5:08 AM EDT 05/12/2023 5:08 AM EDT Radha Hollins MD POINT OF CARE TEST ORDERABLES Performing Organization Address [facility] Co de Phone Number [facility] [place] [address] * (ABNORMAL) Coox2 (05/12/2023 3:21 AM EDT) pO2, Coox 25 mmHg [facility] Hgb Blood Gas 10.8(L) 11.7 - 15.5 g/dL [facility] Oxyhemoglobin, Coox 32.7 % [facility] Carboxyhemoglo bin, Coox 0.3 % [facility] Comment: Nonsmokers: 0.5-1.5% COHB Smokers: Variable, but usually less than 10% Toxic: 20-30% COHB Lethal: Greater than 60% COHB Methemoglobin, Coox 0.7 <=1.5 % [facility] Source Coox Mixed Venous [facility] Blood 05/12/2023 3:21 AM EDT 05/12/2023 3:21 AM EDT Radha Hollins MD POINT OF CARE TEST ORDERABLES Performing Organization Address [facility] Co de Phone Number [facility] [place] [address] * (ABNORMAL) BLOOD GAS 2 ARTERIAL (05/12/2023 3:18 AM EDT) pH, Arterial 7.34(L) 7.35 - 7.45 [facility] PCO2, Arterial 30(L) 35 - 45 mmHg [facility] PO2, Arterial 72(L) 85 - 104 mmHg [facility] Bicarbonate, Arterial 16.0(L) 20.0 - 26.0 mmol/L [facility] Base Excess, Arterial -9.8(L) -3.0 - 3.0 mmol/L [facility] Hgb Blood Gas 11.0(L) 11.7 - 15.5 g/dL [facility] Oxyhemoglobin, Arterial 89.8(L) 94.0 - 97.0 % [facility] Carboxyhemoglob in, Arterial 0.3 % [facility] Comment: Nonsmokers: 0.5-1.5% COHB Smokers: Variable, but usually less than 10% Toxic: 20-30% COHB Lethal: Greater than 60% COHB Methemoglobin, Arterial 0.7 <=1.5 % [facility] Na Whole Blood 131(L) 135 - 145 mmol/L [facility] K Whole Blood 4.2 3.5 - 5.0 mmol/L [facility] Comment: Please note: Patients with WBC >100,000 may have falsely elevated Potassium levels. Contact the Clinical Chemistry Laboratory if there are any questions. ICa Whole Blood 1.12(L) 1.15 - 1.33 mmol/L [facility] Comment: Note: ??Total bilirubin higher than 20 mg/dL may lead to falsely low ionized calcium. CL Whole Blood 100 98 - 107 mmol/L [facility] Gluc Whole Bld 160 65 - 199 mg/dL [facility] Comment:Diabetes: >=200 mg/d L plus symptoms. Lactate WB 2.7(H) 0.5 - 2.2 mmol/L [facility] Flow Art 5.[address] [facility] Blood 05/12/2023 3:18 AM EDT 05/12/2023 3:18 AM EDT Radha Hollins MD POINT OF CARE TEST ORDERABLES Performing Organization Address City/State/[facility] Co de Phone Number [facility] [place] [place] [address] * (ABNORMAL) Coox2 (05/12/2023 1:14 AM EDT) pO2, Coox [address] [facility] Hgb Blood Gas 10.9(L) 11.7 - 15.5 g/dL [facility] Oxyhemoglobin, Coox 37.3 % [facility] Carboxyhemoglo bin, Coox 0.3 % [facility] Comment: Nonsmokers: 0.5-1.5% COHB Smokers: Variable, but usually less than 10% Toxic: 20-30% COHB Lethal: Greater than 60% COHB Methemoglobin, Coox 0.5 <=1.5 % [facility] Source Coox Mixed Venous [facility] Blood 05/12/2023 1:14 AM EDT 05/12/2023 1:14 AM EDT Radha Hollins MD POINT OF CARE TEST ORDERABLES [facility] [place] [address] * (ABNORMAL) BLOOD GAS 2 ARTERIAL (05/12/2023 1:06 AM EDT) pH, Arterial 7.34(L) 7.35 - 7.45 [facility] PCO2, Arterial 30(L) 35 - 45 mmHg [facility] PO2, Arterial 81(L) 85 - 104 mmHg [facility] Bicarbonate, Arterial 15.7(L) 20.0 - 26.0 mmol/L [facility] Base Excess, Arterial -10.1(L) -3.0 - 3.0 mmol/L [facility] Hgb Blood Gas 11.0(L) 11.7 - 15.5 g/dL [facility] Oxyhemoglobin, Arterial 92.3(L) 94.0 - 97.0 % [facility] Carboxyhemoglob in, Arterial 0.2 % [facility] Comment: Nonsmokers: 0.5-1.5% COHB Smokers: Variable, but usually less than 10% Toxic: 20-30% COHB Lethal: Greater than 60% COHB Methemoglobin, Arterial 0.6 <=1.5 % [facility] Na Whole Blood 131(L) 135 - 145 mmol/L [facility] K Whole Blood 4.2 3.5 - 5.0 mmol/L [facility] Comment: Please note: Patients with WBC >100,000 may have falsely elevated Potassium levels. Contact the Clinical Chemistry Laboratory if there are any questions. ICa Whole Blood 1.13(L) 1.15 - 1.33 mmol/L [facility] Comment: Note: ??Total bilirubin higher than 20 mg/dL may lead to falsely low ionized calcium. CL Whole Blood 99 98 - 107 mmol/L [facility] Gluc Whole Bld 132 65 - 199 mg/dL [facility] Comment:Diabetes: >=200 mg/d L plus symptoms. Lactate WB 2.7(H) 0.5 - 2.2 mmol/L [facility] Flow Art 5.[address] [facility] Blood 05/12/2023 1:06 AM EDT 05/12/2023 1:06 AM EDT Radha Hollins MD POINT OF CARE TEST ORDERABLES [facility] [place] [address] * (ABNORMAL) Differential, Automated (05/12/2023 1:05 AM EDT) Neutrophil % 83.3 % [facility] Neutrophil Absolute 7.49(H) 1.70 - 6.10 x10(3)/mc L [facility] Lymph % 7.1 % [facility] Lymphocytes Abs 0.6(L) 0.9 - 3.2 x10(3)/mc L [facility] Monocyte % 8.9 % [facility] Monocyte Abs 0.8 0.3 - 0.9 x10(3)/mc L [facility] Eos % 0.0 % [facility] Eosinophils Abs 0.0 0.0 - 0.4 x10(3)/mc L [facility] Basophil % 0.1 % [facility] Baso Absolute 0.0 0.0 - 0.1 x10(3)/mc L [facility] Immature Gran % 0.60 % [facility] Comment: Immature granulocytes(IG's)percentage and absolute count will include metamyelocytes, myelocytes, and promyelocytes. Blood smears from CBCs yielding IG's will be scanned manually for concordance. If this scan disagrees with the automated IG or if promyelocytes are noted, a manual differential will be performed. Immature Gran Absolute 0.05(H) 0.00 - 0.04 x10(3)/mc L [facility] Blood 05/12/2023 1:05 AM EDT 05/12/2023 1:15 AM EDT Narrative Resulting Agency Comment Spec In Lab Gianni Fletcher MD HEMATOLOGY ORDERABLE S [facility] [place] [address] * (ABNORMAL) Hemogram (05/12/2023 1:05 AM EDT) White Blood Cell 9.0 4.0 - 9.5 x10(3)/mc L [facility] Red Blood Cell 3.01(L) 4.00 - 5.21 x10(6)/mc L [facility] Hemoglobin 9.8(L) 11.7 - 15.5 g/dL [facility] Hematocrit 28.7(L) 35.7 - 45.8 % [facility] Mean Cell Volume 95.3(H) 82.6 - 94.4 fL [facility] Mean Cell Hemoglobin 32.6(H) 27.1 - 32.0 pg [facility] Mean Cell Hemoglobin Concentration 34.1 31.7 - 35.0 g/dL [facility] Platelet 186 145 - 357 x10(3)/mc L [facility] RDW Standard Deviation 43.7 37.0 - 46.0 fL [facility] RDW coefficient of variation 12.7 11.5 - 14.1 % [facility] Mean Platelet Volume 10.3 7.6 - 12.9 fL [facility] NRBC% auto 0.0 % [facility] NRBC Absolute 0.000 0.000 - 0.000 x10(3)/mc L [facility] Blood 05/12/2023 1:05 AM EDT 05/12/2023 1:15 AM EDT Narrative Resulting Agency Comment Spec In Lab Gianni Fletcher MD HEMATOLOGY ORDERABLE S [facility] [place] [address] * (ABNORMAL) Comprehensive metabolic panel (non-fasting) (05/12/2023 1:05 AM EDT) Glucose 141 65 - 199 mg/dL [facility] Comment:Diabetes: >=200 mg/d L plus symptoms Blood Urea Nitrogen 63(H) 8 - 18 mg/dL [facility] Creatinine 1.86(H) 0.70 - 1.20 mg/dL [facility] Sodium 131(L) 135 - 145 mmol/L [facility] Potassium 4.4 3.5 - 5.0 mmol/L [facility] Comment: Please note: ??Patients with WBC >100,000 may have falsely elevated Potassium levels. ??For accurate Potassium quantification in these patients send serum separator tube (gold top) for subsequent determinations. ??Contact the Clinical Chemistry Laboratory if there are any questions. Chloride 96(L) 98 - 107 mmol/L [facility] Carbon Dioxide 14(L) 22 - 31 mmol/L [facility] Anion Gap 21(H) 5 - 15 mmol/L [facility] Calcium 9.0 8.5 - 10.5 mg/dL [facility] Protein, Total 6.6 6.1 - 8.0 g/dL [facility] Albumin 3.9 3.2 - 5.2 g/dL [facility] Aspartate Aminotransferase 1,227(H) 0 - 30 unit/L [facility] Alanine Aminotransferase 1,097(H) 0 - 30 unit/L [facility] Alkaline Phosphatase 108(H) 35 - 105 unit/L [facility] Bilirubin, Total 1.0 0.2 - 1.3 mg/dL [facility] Est Glomerular Filtration Rate 29(L) >=60 mL/min/1. 73 m?? 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 Radha Hollins MD IMG DX ORDERABLES * (ABNORMAL) Coox2 (05/12/2023 12:30 AM EDT) pO2, Coox 22 mmHg [facility] Hgb Blood Gas 10.9(L) 11.7 - 15.5 g/dL [facility] Oxyhemoglobin, Coox 25.1 % [facility] Carboxyhemoglo bin, Coox 0.3 % [facility] Comment: Nonsmokers: 0.5-1.5% COHB Smokers: Variable, but usually less than 10% Toxic: 20-30% COHB Lethal: Greater than 60% COHB Methemoglobin, Coox 1.4 <=1.5 % [facility] Source Coox Mixed Venous [facility] Blood 05/12/2023 12:3 0 AM EDT 05/12/2023 12:30 AM EDT Radha Hollins MD POINT OF CARE TEST ORDERABLES [facility] [place] [address] * XR Chest One View (05/11/2023 11:45 [...] signed by: Will Rowe MD, [facility]([phone]), at 05/11/2023 11:57 PM Radha Hollins MD IMG DX ORDERABLES * (ABNORMAL) Lactate, whole blood, send to lab ([facility] [place]) (05/11/2023 7:40 PM EDT) Lactate WB 4.8(Critic al) 0.5 - 2.2 mmol/L [facility] Comment:Called by: [facility], Read back by: Magdalena Baires, Date/Time:05/11/23 19:54. Blood 05/11/2023 7:40 PM EDT 05/11/2023 7:49 PM EDT Narrative Resulting Agency Comment Spec In Lab Radha Hollins MD CHEMISTRY ORDERABL ES Performing Organization Address [facility] Co de Phone Number [facility] [place] [address] * Urine culture (05/11/2023 7:22 PM EDT) Urine Culture 50,000-99,000 cfu/ml Normal mucosal herman Susceptibilit y testing not routinely performed for Coagulase Negative Staphylococcu s species and other Gram Positive organisms from urine. [facility] Clean Catch Urine 05/11/2023 7:22 PM EDT 05/11/2023 8:50 PM EDT Narrative Resulting Agency Comment Spec In Lab Brody Enriquezwilder LEMAN MICROBIOLOGY - GENE RAL ORDERABLES Performing Organization Address [facility] Phone Number [facility] [place] [address] * (ABNORMAL) Urinalysis Microscopic Exam (05/11/2023 7:22 PM EDT) RBC, Urine 2 0 - 4 /HPF [facility] WBC, Urine >100(H) 0 - 5 /HPF [facility] Bacteria, Urine Occasional (A) None /HPF [facility] Squamous Epithelial Cells Raw Data, Urine 5(H) <=4 /HPF [facility] Hyaline Casts, Urine 3(H) 0 - 2 /LPF [facility] Clean Catch Urine 05/11/2023 7:22 PM EDT 05/11/2023 7:31 PM EDT Narrative Resulting Agency Comment Spec In Lab Brody Dale Eusebio LEMAN URINE ORDERABLES Performing Organization Address [facility] Co de Phone Number [facility] [place] [address] * (ABNORMAL) Urinalysis with reflex Culture (05/11/2023 7:22 PM EDT) Glucose, Urine Dipstick Negative Negative mg/dL [facility] Protein, Urine Dipstick Trace(A) Negative mg/dL [facility] Bilirubin, Urine Dipstick Negative Negative mg/dL [facility] Comment: Clinical correlation required for positive Urine Bilirubin results as false positive may occur with some drugs and drug related products. If a false positive is suspected a serum total bilirubin should be considered if clinically indicated. Urobilinogen, Urine Dipstick Normal Normal mg/dL [facility] pH, Urn (dipstick) 5.0 5.0 - 8.0 [facility] Blood, Urine Dipstick Trace(A) Negative mg/dL [facility] Ketone, Urine Dipstick Negative Negative mg/dL [facility] Nitrite, Urine Dipstick Negative Negative [facility] Leukocytes, Urine Dipstick Moderate(A) Negative mcL [facility] Appearance, Urine Dipstick Cloudy(A) Clear [facility] Specific Schurz Urine Automated >=1.030(A) 1.005 - 1.030 [facility] Color, Urine Dipstick Yellow Yellow [facility] Reflex to Culture Yes [facility] Clean Catch Urine 05/11/2023 7:22 PM EDT 05/11/2023 7:31 PM EDT Narrative Resulting Agency Comment Spec In Lab Brody Kaplan APRN URINE ORDERABLES Performing Organization Address [facility] Co de Phone Number [facility] [place] [address] * (ABNORMAL) pro-Brain Natriuretic Peptide (05/11/2023 7:11 PM EDT) Pathologist [facility] NT-proBNP >35,000(H) <=124 pg/mL [facility] Blood 05/11/2023 7:11 PM EDT 05/11/2023 7:26 PM EDT Narrative Resulting Agency Comment Spec In Lab Radha Hollins MD CHEMISTRY ORDERABL ES Performing Organization Address [facility] Co de Phone Number [facility] [place] [address] * (ABNORMAL) Lactate, whole blood, send to lab ([facility] [place]) (05/11/2023 2:47 PM EDT) Lactate WB 2.9(H) 0.5 - 2.2 mmol/L [facility] Blood 05/11/2023 2:47 PM EDT 05/11/2023 2:53 PM EDT Narrative Resulting Agency Comment Spec In Lab Juan Luis Gonzalez MD CHEMISTRY ORDERABLES [facility] [place] [address] * (ABNORMAL) CT Angiogram Abdomen & Pelvis [...] signed by: Cullen Narayanan MD, [facility] ([phone]), at 05/11/2023 4:37 PM Narrative 05/11/2023 4:37 [...] 610 mm2 Circumference: 88 mm Calcification: Mild Vywleqn-ao-fseirjwo height: Left: 6.2 mm Right: 5.8 mm THORACIC AORTA Description: Normal course and caliber. ??Mild diffuse atherosclerotic changes. No acute aortopathy noted. [employer] dimensions: Aortic root: 27.6 mm Max ascending aorta: 30.5 mm x 27.7 mm Suggested fluoroscopic angulation based on line extending through the nadirs of the three sinuses of Valsalva, set equidistant: ?? ICELANDIC ??9 degrees; cranial 7 degrees MITRAL: Mitral [...] 610 mm2 Circumference: 88 mm Calcification: Mild Csfgecz-xh-inzmciki height: Left: 6.2 mm Right: 5.8 mm THORACIC AORTA Description: Normal course and caliber. Mild diffuse atheroscleroticchanges. No acute aortopathy noted. [employer] dimensions: Aortic root: 27.6 mm Max ascending aorta: 30.5 mm x 27.7 mm Suggested fluoroscopic angulation based on line extending through thenadirs of the three sinuses of Valsalva, set equidistant: ICELANDIC 9 degrees; cranial 7 degrees MITRAL: Mitral [...] signed by: Cullen Narayanan MD, [facility]([phone]), at 05/11/2023 4:37 PM Antelmo Sharma MD IMG CT ORDERABLES * (ABNORMAL) Lactate, whole blood, send to lab ([facility] [place]) (05/11/2023 9:29 AM EDT) Lactate WB 3.1(H) 0.5 - 2.2 mmol/L [facility] Blood 05/11/2023 9:29 AM EDT 05/11/2023 9:38 AM EDT Narrative Resulting Agency Comment Spec In Lab Juan Luis Gonzalez MD CHEMISTRY ORDERABLES Performing Organization Address City/State/[facility] Co de Phone Number [facility] [place] [address] * (ABNORMAL) Differential, Automated (05/11/2023 4:42 AM EDT) Neutrophil % 78.1 % [facility] Neutrophil Absolute 5.46 1.70 - 6.10 x10(3)/mc L [facility] Lymph % 10.6 % [facility] Lymphocytes Abs 0.7(L) 0.9 - 3.2 x10(3)/mc L [facility] Monocyte % 9.6 % [facility] Monocyte Abs 0.7 0.3 - 0.9 x10(3)/mc L [facility] Eos % 0.0 % [facility] Eosinophils Abs 0.0 0.0 - 0.4 x10(3)/mc L [facility] Basophil % 0.4 % [facility] Baso Absolute 0.0 0.0 - 0.1 x10(3)/mc L [facility] Immature Gran % 1.30 % [facility] Comment: Immature granulocytes(IG's)percentage and absolute count will include metamyelocytes, myelocytes, and promyelocytes. Blood smears from CBCs yielding IG's will be scanned manually for concordance. If this scan disagrees with the automated IG or if promyelocytes are noted, a manual differential will be performed. Immature Gran Absolute 0.09(H) 0.00 - 0.04 x10(3)/mc L [facility] Blood 05/11/2023 4:42 AM EDT 05/11/2023 4:49 AM EDT Narrative Resulting Agency Comment Spec In Lab Klaudia Ried MD HEMATOLOGY OR DERABLES [facility] [place] [address] * (ABNORMAL) Hemogram (05/11/2023 4:42 AM EDT) White Blood Cell 7.0 4.0 - 9.5 x10(3)/mc L [facility] Red Blood Cell 3.44(L) 4.00 - 5.21 x10(6)/mc L [facility] Hemoglobin 11.1(L) 11.7 - 15.5 g/dL [facility] Hematocrit 32.7(L) 35.7 - 45.8 % [facility] Mean Cell Volume 95.1(H) 82.6 - 94.4 fL [facility] Mean Cell Hemoglobin 32.3(H) 27.1 - 32.0 pg [facility] Mean Cell Hemoglobin Concentration 33.9 31.7 - 35.0 g/dL [facility] Platelet 165 145 - 357 x10(3)/mc L [facility] RDW Standard Deviation 43.1 37.0 - 46.0 fL [facility] RDW coefficient of variation 12.7 11.5 - 14.1 % [facility] Mean Platelet Volume 10.1 7.6 - 12.9 fL [facility] NRBC% auto 0.0 % [facility] NRBC Absolute 0.000 0.000 - 0.000 x10(3)/mc L [facility] Blood 05/11/2023 4:42 AM EDT 05/11/2023 4:49 AM EDT Narrative Resulting Agency Comment Spec In Lab Klaudia Reid MD HEMATOLOGY OR DERABLES Performing Organization Address [facility] Co de Phone Number [facility] [place] [address] * Heparin (unfractionated) Level (05/11/2023 4:42 AM EDT) UF Heparin 0.46 IU/mL [facility] Comment: [...] MD HEMATOLOGY ORDERAB LES Performing Organization Address [facility] Co de Phone Number [facility] [place] [address] * (ABNORMAL) Comprehensive metabolic panel (non-fasting) (05/11/2023 4:42 AM EDT) Glucose 143 65 - 199 mg/dL [facility] Comment:Diabetes: >=200 mg/d L plus symptoms Blood Urea Nitrogen 42(H) 8 - 18 mg/dL [facility] Creatinine 1.24(H) 0.70 - 1.20 mg/dL [facility] Sodium 134(L) 135 - 145 mmol/L [facility] Potassium 4.6 3.5 - 5.0 mmol/L [facility] Comment: Please note: ??Patients with WBC >100,000 may have falsely elevated Potassium levels. ??For accurate Potassium quantification in these patients send serum separator tube (gold top) for subsequent determinations. ??Contact the Clinical Chemistry Laboratory if there are any questions. Chloride 99 98 - 107 mmol/L [facility] Carbon Dioxide 14(L) 22 - 31 mmol/L [facility] Anion Gap 21(H) 5 - 15 mmol/L [facility] Calcium 9.6 8.5 - 10.5 mg/dL [facility] Protein, Total 7.2 6.1 - 8.0 g/dL [facility] Albumin 3.7 3.2 - 5.2 g/dL [facility] Aspartate Aminotransferase 144(H) 0 - 30 unit/L [facility] Comment:result rechecked-ssc Alanine Aminotransferase 130(H) 0 - 30 unit/L [facility] Comment:result rechecked-ssc Alkaline Phosphatase 72 35 - 105 unit/L [facility] Bilirubin, Total 0.8 0.2 - 1.3 mg/dL [facility] Est Glomerular Filtration Rate 48(L) >=60 mL/min/1. 73 m?? [facility] Comment: This patient's estimated [...] Lab Radha Hollins MD CHEMISTRY ORDERABL ES [facility] [place] [address] * EKG 12 Lead (05/10/2023 1:16 PM EDT) Ventricular rate 118 BPM MUSE SYSTEM Atrial Rate 118 BPM MUSE SYSTEM P-R Interval 152 ms MUSE SYSTEM QRS Duration 104 ms MUSE SYSTEM Q-T Interval 316 ms MUSE SYSTEM QTC Calculated (Bezet) 442 ms MUSE SYSTEM Calculated P [place] 29 degrees MUSE SYSTEM Calculated R [place] 18 degrees MUSE SYSTEM Calculated T [place] -173 degrees MUSE SYSTEM INTERPRETATION Sinus tachycardia [...] Anterior leads Confirmed by MD Villareal Danette ([id number]) on 05/10/2023 8:47:46 PM MUSE SYSTEM 05/10/2023 1:16 PM EDT 05/10/2023 8:47 PM EDT Juan Luis Gonzalez MD ECG ORDERABLES MUSE SYSTEM * Lactate, whole blood, send to lab ([facility] [place] [place]) (05/10/2023 11:52 AM EDT) Lactate WB 1.8 0.5 - 2.2 mmol/L [facility] Blood 05/10/2023 11:5 2 AM EDT 05/10/2023 12:13 PM EDT Narrative Resulting Agency Comment Spec In Lab Juan Luis Gonzalez MD CHEMISTRY ORDERABLES [facility] [place] [address] * XR Chest One View (05/10/2023 11:16 [...] signed by: ALIX RUVALCABA MD, [facility] ([phone]), at 05/10/2023 1:25 PM Narrative 05/10/2023 1:25 [...] your imaging first. Electronically signed by: ALIX RUVALCAAB MD, [facility]([phone]), at 05/10/2023 1:25 PM Juan Luis Gonzalez MD IMG DX ORDERABLES * EKG 12 Lead (05/10/2023 7:59 AM EDT) Ventricular rate 115 BPM MUSE SYSTEM Atrial Rate 115 BPM MUSE SYSTEM P-R Interval 142 ms MUSE SYSTEM QRS Duration 102 ms MUSE SYSTEM Q-T Interval 322 ms MUSE SYSTEM QTC Calculated (Bezet) 445 ms MUSE SYSTEM Calculated P [place] 36 degrees MUSE SYSTEM Calculated R [place] 28 degrees MUSE SYSTEM Calculated T [place] -119 degrees MUSE SYSTEM INTERPRETATION Sinus tachycardia [...] EDT) Pathologist [facility] Neutrophil % 77.1 % [facility] Neutrophil Absolute 4.01 1.70 - 6.10 x10(3)/mc L [facility] Lymph % 14.0 % [facility] Lymphocytes Abs 0.7(L) 0.9 - 3.2 x10(3)/mc L [facility] Monocyte % 7.7 % [facility] Monocyte Abs 0.4 0.3 - 0.9 x10(3)/mc L [facility] Eos % 0.4 % [facility] Eosinophils Abs 0.0 0.0 - 0.4 x10(3)/mc L [facility] Basophil % 0.4 % [facility] Baso Absolute 0.0 0.0 - 0.1 x10(3)/mc L [facility] Immature Gran % 0.40 % [facility] Comment: Immature granulocytes(IG's)percentage and absolute count will include metamyelocytes, myelocytes, and promyelocytes. Blood smears from CBCs yielding IG's will be scanned manually for concordance. If this scan disagrees with the automated IG or if promyelocytes are noted, a manual differential will be performed. Immature Gran Absolute 0.02 0.00 - 0.04 x10(3)/mc L [facility] Blood 05/10/2023 2:28 AM EDT 05/10/2023 2:57 AM EDT Narrative Resulting Agency Comment Spec In Lab Klaudia Reid MD HEMATOLOGY OR DERABLES [facility] [place] [address] * (ABNORMAL) Hemogram (05/10/2023 2:28 AM EDT) White Blood Cell 5.2 4.0 - 9.5 x10(3)/mc L [facility] Red Blood Cell 3.11(L) 4.00 - 5.21 x10(6)/ L [facility] Hemoglobin 10.2(L) 11.7 - 15.5 g/dL [facility] Hematocrit 30.2(L) 35.7 - 45.8 % [facility] Mean Cell Volume 97.1(H) 82.6 - 94.4 fL [facility] Mean Cell Hemoglobin 32.8(H) 27.1 - 32.0 pg [facility] Mean Cell Hemoglobin Concentration 33.8 31.7 - 35.0 g/dL [facility] Platelet 151 145 - 357 x10(3)/mc L [facility] RDW Standard Deviation 44.9 37.0 - 46.0 fL [facility] RDW coefficient of variation 12.8 11.5 - 14.1 % [facility] Mean Platelet Volume 9.8 7.6 - 12.9 fL [facility] NRBC% auto 0.0 % [facility] NRBC Absolute 0.000 0.000 - 0.000 x10(3)/mc L [facility] Blood 05/10/2023 2:28 AM EDT 05/10/2023 2:57 AM EDT Narrative Resulting Agency Comment Spec In Lab Klaudia Reid MD HEMATOLOGY OR DERABLES [facility] [place] [address] * (ABNORMAL) Comprehensive metabolic panel (non-fasting) (05/10/2023 2:28 AM EDT) Glucose 100 65 - 199 mg/dL [facility] Comment:Diabetes: >=200 mg/d L plus symptoms Blood Urea Nitrogen 30(H) 8 - 18 mg/dL [facility] Creatinine 0.90 0.70 - 1.20 mg/dL [facility] Sodium 134(L) 135 - 145 mmol/L [facility] Potassium 4.1 3.5 - 5.0 mmol/L [facility] Comment: Please note: ??Patients with WBC >100,000 may have falsely elevated Potassium levels. ??For accurate Potassium quantification in these patients send serum separator tube (gold top) for subsequent determinations. ??Contact the Clinical Chemistry Laboratory if there are any questions. Chloride 102 98 - 107 mmol/L [facility] Carbon Dioxide 20(L) 22 - 31 mmol/L [facility] Anion Gap 12 5 - 15 mmol/L [facility] Calcium 9.3 8.5 - 10.5 mg/dL [facility] Protein, Total 6.4 6.1 - 8.0 g/dL [facility] Albumin 3.7 3.2 - 5.2 g/dL [facility] Aspartate Aminotransferase 24 0 - 30 unit/L [facility] Alanine Aminotransferase 14 0 - 30 unit/L [facility] Alkaline Phosphatase 70 35 - 105 unit/L [facility] Bilirubin, Total 0.5 0.2 - 1.3 mg/dL [facility] Est Glomerular Filtration Rate 70 >=60 mL/min/1. 73 m?? [facility] Comment: This patient's estimated [...] MD CHEMISTRY ORDERABL ES Performing Organization Address [facility]/[place] [address] * Heparin (unfractionated) Level (05/10/2023 2:28 AM EDT) UF Heparin 0.37 IU/mL [facility] Comment: Heparin [...] MD HEMATOLOGY ORDERAB LES Performing Organization Address City/[facility]/ZIP Co de Phone Number [facility] [place] [address] * (ABNORMAL) Differential, Automated (05/09/2023 4:00 AM EDT) Neutrophil % 81.7 % [facility] Neutrophil Absolute 5.26 1.70 - 6.10 x10(3)/mc L [facility] Lymph % 10.7 % [facility] Lymphocytes Abs 0.7(L) 0.9 - 3.2 x10(3)/mc L [facility] Monocyte % 6.5 % [facility] Monocyte Abs 0.4 0.3 - 0.9 x10(3)/[facility] LABORAT[facility] Eos % 0.5 % [facility] Eosinophils Abs 0.0 0.0 - 0.4 x10(3)/[facility] Basophil % 0.3 % [facility] Baso Absolute 0.0 0.0 - 0.1 x10(3)/[facility] Immature Gran % 0.30 % [facility] Comment: Immature granulocytes(IG's)percentage and absolute count will include metamyelocytes, myelocytes, and promyelocytes. Blood smears from CBCs yielding IG's will be scanned manually for concordance. If this scan disagrees with the automated IG or if promyelocytes are noted, a manual differential will be performed. Immature Gran Absolute 0.02 0.00 - 0.04 x10(3)/[facility] Blood 05/09/2023 4:00 AM EDT 05/09/2023 4:19 AM EDT Narrative Resulting Agency Comment Spec In Lab Klaudia Reid MD HEMATOLOGY OR DERABLES Performing Organization Address City/State/[facility] Co de Phone Number [facility] [place] [address] * (ABNORMAL) Hemogram (05/09/2023 4:00 AM EDT) White Blood Cell 6.4 4.0 - 9.5 x10(3)/ L [facility] Red Blood Cell 3.15(L) 4.00 - 5.21 x10(6)/[facility] Hemoglobin 10.2(L) 11.7 - 15.5 g/dL [facility] Hematocrit 30.3(L) 35.7 - 45.8 % [facility] Mean Cell Volume 96.2(H) 82.6 - 94.4 fL [facility] Mean Cell Hemoglobin 32.4(H) 27.1 - 32.0 pg [facility] Mean Cell Hemoglobin Concentration 33.7 31.7 - 35.0 g/dL [facility] Platelet 151 145 - 357 x10(3)/mc L [facility] RDW Standard Deviation 44.7 37.0 - 46.0 fL [facility] RDW coefficient of variation 12.8 11.5 - 14.1 % [facility] Mean Platelet Volume 9.4 7.6 - 12.9 fL [facility] NRBC% auto 0.0 % [facility] NRBC Absolute 0.000 0.000 - 0.000 x10(3)/mc L [facility] Blood 05/09/2023 4:00 AM EDT 05/09/2023 4:19 AM EDT Narrative Resulting Agency Comment Spec In Lab Klaudia Reid MD HEMATOLOGY OR DERABLES [facility] [place] [address] * Heparin (unfractionated) Level (05/09/2023 4:00 AM EDT) UF Heparin 0.47 IU/mL [facility] Comment: [...] Lab Radha Hollins MD HEMATOLOGY ORDERAB LES [facility] [place] [address] * (ABNORMAL) Comprehensive metabolic panel (non-fasting) (05/09/2023 4:00 AM EDT) Glucose 108 65 - 199 mg/dL [facility] Comment:Diabetes: >=200 mg/d L plus symptoms Blood Urea Nitrogen 31(H) 8 - 18 mg/dL [facility] Creatinine 1.03 0.70 - 1.20 mg/dL [facility] Sodium 137 135 - 145 mmol/L [facility] Potassium 4.4 3.5 - 5.0 mmol/L [facility] Comment: Please note: ??Patients with WBC >100,000 may have falsely elevated Potassium levels. ??For accurate Potassium quantification in these patients send serum separator tube (gold top) for subsequent determinations. ??Contact the Clinical Chemistry Laboratory if there are any questions. Chloride 102 98 - 107 mmol/L [facility] Carbon Dioxide 20(L) 22 - 31 mmol/L [facility] Anion Gap 15 5 - 15 mmol/L [facility] Calcium 9.3 8.5 - 10.5 mg/dL [facility] Protein, Total 6.6 6.1 - 8.0 g/dL [facility] Albumin 3.8 3.2 - 5.2 g/dL [facility] Aspartate Aminotransferase 32(H) 0 - 30 unit/L [facility] Alanine Aminotransferase 18 0 - 30 unit/L [facility] Alkaline Phosphatase 78 35 - 105 unit/L [facility] Bilirubin, Total 0.5 0.2 - 1.3 mg/dL [facility] Est Glomerular Filtration Rate 60 >=60 mL/min/1. 73 m?? [facility] Comment: This patient's estimated [...] MD CHEMISTRY ORDERABL ES Performing Organization Address City/[facility]/ZIP Co de Phone Number [facility] [place] [address] * (ABNORMAL) pro-Brain Natriuretic Peptide (05/08/2023 4:00 PM EDT) NT-proBNP 25,503(H) <=124 pg/mL [facility] Blood Venous Draw / Unknown 05/08/2023 4:00 PM EDT 05/08/2023 4:25 PM EDT Narrative Resulting Agency Comment Spec In Lab Juan Luis Gonzalez MD CHEMISTRY ORDERABLES Performing Organization Address [facility] Co de Phone Number [facility] [place] [address] * Magnesium (05/08/2023 4:00 PM EDT) Magnesium 0.82 0.69 - 1.07 mmol/L [facility] Blood 05/08/2023 4:00 PM EDT 05/08/2023 4:06 PM EDT Narrative Resulting Agency Comment Spec In Lab Enrique Chua MD CHEMISTRY ORDERABLES Performing Organization Address [facility] Co de Phone Number [facility] [place] [address] * Potassium (05/08/2023 4:00 PM EDT) Potassium 3.9 3.5 - 5.0 mmol/L [facility] Comment: Please note: ??Patients [...] MD CHEMISTRY ORDERABL ES Performing Organization Address [facility] Co de Phone Number [facility] [place] [address] * Heparin (unfractionated) Level (05/08/2023 4:00 PM EDT) Pathologist [facility] UF Heparin 0.43 IU/mL [facility] Comment: Heparin [...] MD HEMATOLOGY ORDERAB LES Performing Organization Address [facility] Co de Phone Number [facility] [place] [address] * EKG 12 Lead (05/08/2023 3:51 PM EDT) Ventricular rate 98 BPM MUSE SYSTEM Atrial Rate 98 BPM MUSE SYSTEM P-R Interval 150 ms MUSE SYSTEM QRS Duration 102 ms MUSE SYSTEM Q-T Interval 358 ms MUSE SYSTEM QTC Calculated (Bezet) 457 ms MUSE SYSTEM Calculated P [place] 38 degrees MUSE SYSTEM Calculated R [place] 48 degrees MUSE SYSTEM Calculated T [place] -112 degrees MUSE SYSTEM INTERPRETATION Sinus rhythm with frequent and consecutive Premature ventricular and fusion complexes Septal infarct , age undetermined ST & T wave abnormality, consider anterolateral ischemia Abnormal ECG When compared with ECG of 09-NOV-2022 11:17, T wave inversion now evident in Anterolateral leads Confirmed by MD Harshil, Enrique Bell ([id number]) on 05/10/2023 8:11:46 AM MUSE SYSTEM 05/08/2023 3:51 PM EDT 05/10/2023 8:11 AM EDT Radha Hollins MD ECG ORDERABLES MUSE SYSTEM * (ABNORMAL) Differential, Automated (05/08/2023 11:38 AM EDT) [facility]rophil % 71.3 % [facility] Neutrophil Absolute 2.91 1.70 - 6.10 x10(3)/mc L [facility] Lymph % 19.1 % [facility] Lymphocytes Abs 0.8(L) 0.9 - 3.2 x10(3)/mc L [facility] Monocyte % 9.0 % [facility] Monocyte Abs 0.4 0.3 - 0.9 x10(3)/mc L [facility] Eos % 0.2 % [facility] Eosinophils Abs 0.0 0.0 - 0.4 x10(3)/mc L [facility] Basophil % 0.2 % [facility] Baso Absolute 0.0 0.0 - 0.1 x10(3)/mc L [facility] Immature Gran % 0.20 % [facility] Comment: Immature granulocytes(IG's)percentage and absolute count will include metamyelocytes, myelocytes, and promyelocytes. Blood smears from CBCs yielding IG's will be scanned manually for concordance. If this scan disagrees with the automated IG or if promyelocytes are noted, a manual differential will be performed. Immature Gran Absolute 0.01 0.00 - 0.04 x10(3)/mc L [facility] Blood 05/08/2023 11:3 8 AM EDT 05/08/2023 11:44 AM EDT Narrative Resulting Agency Comment Spec In Lab Lincoln Sal MD HEMATOLOGY ORDERA BLES [facility] [place] [address] * (ABNORMAL) Hemogram (05/08/2023 11:38 AM EDT) White Blood Cell 4.1 4.0 - 9.5 x10(3)/mc L [facility] Red Blood Cell 3.05(L) 4.00 - 5.21 x10(6)/mc L [facility] Hemoglobin 10.2(L) 11.7 - 15.5 g/dL [facility] Hematocrit 29.6(L) 35.7 - 45.8 % [facility] Mean Cell Volume 97.0(H) 82.6 - 94.4 fL [facility] Mean Cell Hemoglobin 33.4(H) 27.1 - 32.0 pg [facility] Mean Cell Hemoglobin Concentration 34.5 31.7 - 35.0 g/dL [facility] Platelet 136(L) 145 - 357 x10(3)/mc L [facility] RDW Standard Deviation 44.3 37.0 - 46.0 fL [facility] RDW coefficient of variation 12.6 11.5 - 14.1 % [facility] Mean Platelet Volume 9.4 7.6 - 12.9 fL [facility] NRBC% auto 0.0 % [facility] NRBC Absolute 0.000 0.000 - 0.000 x10(3)/mc L [facility] Blood 05/08/2023 11:3 8 AM EDT 05/08/2023 11:44 AM EDT Narrative Resulting Agency Comment Spec In Lab Lincoln Sal MD HEMATOLOGY ORDERA BLES [facility] [place] [address] * TSH (05/08/2023 11:38 AM EDT) Thyroid Stimulating Hormone 1.27 0.27 - 4.20 mcIU/mL [facility] Comment: Reference Interval (mcIU/mL): Females: ??First Trimester: 0.23-3.88 ??Second Trimester: 0.22-3.90 ??Third Trimester: 0.44-4.66 Blood 05/08/2023 11:3 8 AM EDT 05/08/2023 11:44 AM EDT Narrative Resulting Agency Comment Spec In Lab Enrique Chua MD CHEMISTRY ORDERABLES Performing Organization Address City/[facility]/ZIP Co de Phone Number [facility] [place] [address] * (ABNORMAL) Phosphorus (05/08/2023 11:38 AM EDT) Phosphorus 4.7(H) 2.5 - 4.5 mg/dL [facility] Blood 05/08/2023 11:3 8 AM EDT 05/08/2023 11:44 AM EDT Narrative Resulting Agency Comment Spec In Lab Enrique Chua MD CHEMISTRY ORDERABLES Performing Organization Address [facility] Co de Phone Number [facility] [place] [address] * Magnesium (05/08/2023 11:38 AM EDT) Magnesium 0.76 0.69 - 1.07 mmol/L [facility] Blood 05/08/2023 11:3 8 AM EDT 05/08/2023 11:44 AM EDT Narrative Resulting Agency Comment Spec In Lab Enrique Chua MD CHEMISTRY ORDERABLES Performing Organization Address [facility] Co de Phone Number [facility] [place] [address] * (ABNORMAL) Basic Metabolic Panel (non-fasting) (05/08/2023 11:38 AM EDT) Glucose 97 65 - 199 mg/dL [facility] Comment:Diabetes: >=200 mg/d L plus symptoms Blood Urea Nitrogen 27(H) 8 - 18 mg/dL [facility] Creatinine 1.02 0.70 - 1.20 mg/dL [facility] Sodium 139 135 - 145 mmol/L [facility] Potassium 4.2 3.5 - 5.0 mmol/L [facility] Comment: Please note: ??Patients with WBC >100,000 may have falsely elevated Potassium levels. ??For accurate Potassium quantification in these patients send serum separator tube (gold top) for subsequent determinations. ??Contact the Clinical Chemistry Laboratory if there are any questions. Chloride 105 98 - 107 mmol/L [facility] Carbon Dioxide 20(L) 22 - 31 mmol/L [facility] Anion Gap 14 5 - 15 mmol/L [facility] Calcium 9.4 8.5 - 10.5 mg/dL [facility] Est Glomerular Filtration Rate 60 >=60 mL/min/1. 73 m?? [facility] Comment: This patient's estimated [...] In Lab Enrique Chua MD CHEMISTRY ORDERABLES [facility] [place] [address] * ECHO COMPLETE (05/08/2023 11:02 AM EDT) EF 25 HEARTLAB SYSTEM Anatomical Region Laterality Modality Cardiac Other 05/08/2023 10:0 3 AM EDT Narrative 05/08/2023 11:51 AM EDT ? Echocardiogram Report Name: PURNIMA THACKER ?Study Date: 05/08/2023 10:03 AMBP: 92/64 mmHg ? Patient Location: [facility]^CV29^A : 1955 ? Height: 155 cm ? Account: [id number] Age: 67 yrs ? Weight: 78 kg Gender: Female ?BSA: 1.8 m2 Ordering Physician: ENRIQUE CHUA Referring Physician: MARIO ALBERTO CHIN Performed By: CHUCKIE Canchola Reason For Study: SAVR Stenosis Exam Location: [facility]. Interpretation Summary -Left ventricle is severely dilated [...] worsening stenosis. Mitral regurgitation is similar. Procedure Complete-[id number]. Satisfactory quality. There is normal sinus rhythm. [...] Study Date: 0:03 AMBP: 92/64 mmHg Patient Location:[facility]^CV29^A : 1955 Height: 155 cm Account: [id number] Age: 67 yrs Weight: 78 kg Gender: Female BSA: 1.8 m2 Ordering Physician: ENRIQUE CHUA Referring Physician: MARIO ALBERTO CHIN Performed By: CHUCKIE Canchola Reason For Study: SAVR Stenosis Exam Location: [facility]. Interpretation Summary -Left ventricle is severely dilated [...] suggestsworsening stenosis. Mitral regurgitation is similar. Procedure Complete-[id number]. Satisfactory quality. There is normal sinus rhythm. 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 Mild coronary artery disease by [facility] 11/09/2022 Mixed connective tissue disease Other [...] ejection fraction Mild coronary artery disease by [facility] 11/09/2022 Stenosis of prosthetic aortic valve [...] dose on Wed05/12/23 at 1030, Until Discontinued, [place] teeth, Routine Given 05/12/2023 10:04 AM EDT [...] at 0831, Side port TKO rate, per [facility] flush protocol Rate/Dose Verify 05/13/2023 6:00 AM EDT 10 mL/hr 10 mL/hr Rate/Dose Verify 05/13/2023 4:00 AM EDT 10 mL/hr 10 mL/h r Rate/Dose Verify 05/13/2023 2:00 AM EDT 10 mL/hr 10 mL/h r sodium chloride 0.9% infusion 10-30 mL/hr, Intravenous, DAILY PRN, Starting on Wed05/12/23 at 0944, Until Wed05/17/23 at 0831, Side port TKO rate, per [facility] flush protocol. Rate/Dose Verify 05/17/2023 8:00 [...] refused) 0900 (Not Given - Provider: Kia M Kainz, RN - Reason: Patient/family refused) potassium chloride [...] Routine documented in this encounter Care Teams Salt Operator Relationship Specialty Start Date End Date Magdalena Acosta MD [address] [place] [address] PCP - General Family Medicine 02/05/23 documented as of this encounter
--- OUTSIDE RECORDS SUMMARY | 2024-06-27 15:19 | XMS_ITS | Encounter Summary ---
Author Organization [facility] [place] [address] Care Team Providers Care Clinical Athletic Instructor Name Role Phone Magdalena Acosta MD Primary Care Provider [phone] Encounter Details Date Type Department Care Team [...] 11/02/2024 12:00 PM EDT [place]oint[place] [phone] 11/02/2024 1:00 PM EDT Office [place] [phone] Magdalena Peralta MD [facility] [place] [address] 03/01/2025 4:15 PM EDT Office Visit Dermatology at [place] [address] [place] [address] Marek Bonilla MD [address], [place] [address] documented as of this encounter Visit Diagnoses Not on filedocumented in this encounter Care Teams Clinical Athletic Instructor Relationship Specialty Start Date End Date Magdalena Acosta MD [address] [place] [address] PCP - General Family Medicine 02/05/23 documented as of this encounter
--- OUTSIDE RECORDS SUMMARY | 2024-06-27 15:20 | XMS_ITS | Encounter Summary ---
Author Organization [facility] [place] [address] Care Team Providers Care Merchant Miller Name Role Phone Magdalena Acosta MD Primary Care Provider [phone] Encounter Details Date Type Department Care Team (Latest Contact Info) Description 02/05/2023 9:33 PM EDT - 02/05/2023 11:59 PM EDT Hospital [place] [phone] Discharge Disposition: Home Social History Tobacco Use [...] 11/02/2024 12:00 PM EDT Appointment [place] [address] 11/02/2024 1:00 PM EDT Office [place] [address] Magdalena Peralta MD [facility] [place] [address] 03/01/2025 4:15 PM EDT Office Visit Dermatology at [place] [address] [facility] [place] [address] Marek Bonilla MD [address], [place] [address] documented as of this encounter Procedures Procedure Name Priority Date/Time Associated Diagnosis Comments SURGICAL PATHOLOGY REPORT Routine 02/05/2023 3:00 PM EDT documented in this encounter Results * Surgical Pathology Report (02/05/2023 3:00 PM EDT) Final Diagnosis [id number] ? Location: OPW The signing pathologist has (i) examined the relevant preparation(s) for the specimen(s) and (ii) rendered or confirmed the diagnosis(es). . ?Surgical Pathology DIAGNOSIS Left upper back, skin punch biopsy: - ??Compound dysplastic ??melanocytic nevus with moderate atypia, transected at peripheral specimen edges ?? (see discussion) Electronically signed by: ?Vanna CULP, Jesse Shields Verified: ??02/16/2023 8:04 ?? Dermatopathologist Performed at: ??[place] [place], [place] [address] Manager Of Radiology: Kunal Rubi MD, AP, ??CLIA Certificate: [id number] DISCUSSION If there is an obvious clinical [...] labeled A1. ??sns 02/16/2023 8:04 AM EDT [facility] SPECIMEN FROM SKIN / Unknown 02/05/2023 3:00 PM EDT 02/05/2023 3:00 PM EDT Marek Bonilla MD PATHOLOGY/CYTOLOGY O RDERABLES [facility] [place] [address] [facility] [place] [address] documented in this encounter Visit Diagnoses Not on filedocumented in this encounter Care Teams Merchant Miller Relationship Specialty Start Date End Date Magdalena Acosta MD [address] [place] [address] PCP - General Family Medicine 02/05/23 documented as of this encounter
--- OUTSIDE RECORDS SUMMARY | 2024-06-27 15:20 | XMS_ITS | Encounter Summary ---
Author Organization [facility] [place] [address] Care Team Providers Care Precision Instrument And Tool Maker Name Role Phone Magdalena Acosta MD Primary Care Provider [phone] Reason for Referral * Consultation (Routine) - Closed Specialty Diagnoses / Procedures Referred By Contac t Referred To Contact Rheumatology Diagnoses Weakness Kyra Haas MD [facility] [address] [place] [address] [facility] [address] [place] [phone] Referral ID Status Reason Start Date Expiration Date V isits Requested Visits Authorized [id number] Closed Consult, Test & Treat PCP Updated and/or Approved 02/25/2023 02/25/2024 6 6 Encounter Details Date Type Department Care Team (Late st Contact Info) Description 02/25/2023 Transcribe Orders eDH Incoming Referrals [phone] Magdalena Acosta MD [address] [place] [address] Weakness Social History Tobacco Use [...] 11/02/2024 12:00 PM EDT [place]oint[place] [address] 11/02/2024 1:00 PM EDT Office [place] [address] Magdalena Peralta MD [facility] [place] [address] 03/01/2025 4:15 PM EDT Office Visit Dermatology at [place] [address] [place] [address] Marek Bonilla MD [address], [place] [address] Scheduled Referrals Name Type Priority Associated Diagnoses Order Schedule Referral to Rheumatology Outpatient Referral Routine Weakness Ordered: 02/25/2023 documented as of this encounter Visit Diagnoses Diagnosis Weakness Other malaise and fatigue documented in this encounter Care Teams Precision Instrument And Tool Maker Relationship Specialty Start Date End Date Magdalena Acosta MD [address] [place] [address] PCP - General Family Medicine 02/05/23 documented as of this encounter
--- OUTSIDE RECORDS SUMMARY | 2024-06-27 15:20 | XMS_ITS | Encounter Summary ---
[place] [address] Care Team Providers Care Needle Loom Operator Name Role Phone Magdalena Acosta MD Primary Care Provider [phone] Reason for Visit * Reason Comments Suture / Staple Removal Encounter Details Date Type Department Care Team (Late st Contact Info) Description 02/16/2023 10:00 AM EDT Office Visit Dermatology at [place] [address] [facility] [place] [address] Marek Bonilla MD [address] [facility], [address] A DERMATOLOGY [place], [place] [phone] Visit for suture removal Social History Tobacco [...] EDT [place] [address] 11/02/2024 1:00 PM EDT [place] [address] Magdalena Peralta MD [facility] [place] [address] 03/01/2025 4:15 PM EDT Office Visit Dermatology at [place] [address] [place] [phone] Marek Bonilla MD [address], [place] [address] documented as of this encounter Visit Diagnoses Diagnosis Visit for suture removal Encounter for removal of sutures documented in this encounter Care Teams Needle Loom Operator Relationship Specialty Start Date End Date Magdalena Acosta MD [address] [place] [address] PCP - General Family Medicine 02/05/23 documented as of this encounter
--- OUTSIDE RECORDS SUMMARY | 2024-06-27 15:20 | XMS_ITS | Encounter Summary ---
[place] [address] Care Team Providers Care Bait Tier Name Role Phone Magdalena Acosta MD Primary Care Provider [phone] Reason for Visit * Reason Comments Annual Exam Encounter Details Date Type Department Care Team (Late st Contact Info) Description 02/05/2023 2:30 PM EDT Office Visit Dermatology at [address] [phone] Marek Bonilla MD [address] [facility], [address] A DERMATOLOGY [place], [place] [phone] Rosacea; Ocular rosacea; Nevus Social History Tobacco [...] cutaneous and ocular 2. Previously told by seam presser that she had corneal tears from [...] 11/02/2024 12:00 PM EDT Appointment [place] [address] 11/02/2024 1:00 PM EDT Office [place] [address] [facility] [place] [address] 03/01/2025 4:15 PM EDT Office Visit Dermatology at [place] [address] [facility] [place] [address] Marek Bonilla MD [address] [place] [address] documented as of this encounter Visit Diagnoses Diagnosis Rosacea Ocular rosacea Rosacea Nevus Benign neoplasm of skin, site unspecified documented in this encounter Care Teams Bait Tier Relationship Specialty Start Date End Date Magdalena Acosta MD [address] [place] [address] PCP - General Family Medicine 02/05/23 documented as of this encounter
--- OUTSIDE RECORDS SUMMARY | 2024-06-27 15:20 | XMS_ITS | Encounter Summary ---
Author Organization [facility] [place] [id number] Care Team Providers Care Party Director Name Role Phone Magdalena Acosta MD Primary Care Provider [phone] Encounter Details Date Type Department Care Team (Late st Contact Info) Description 03/29/2023 Orders Only Cardiology at [place] [phone] Ranjan Delgado MD [facility] [place] [address] Severe aortic stenosis (Primary Dx) Social History [...] 11/02/2024 12:00 PM EDT [place]ointment [place] [address] 11/02/2024 1:00 PM EDT Office [place] [address] Magdalena Peralta MD [facility] [place] [address] 03/01/2025 4:15 PM EDT Office Visit Dermatology at [place] [address] [place] [address] Marek Bonilla MD [address], [place] [address] Scheduled Orders Name Type Priority Associated Diagnoses [...] disorders documented in this encounter Care Teams Party Director Relationship Specialty Start Date End Date Magdalena Acosta MD [address] [place] [address] PCP - General Family Medicine 02/05/23 documented as of this encounter
--- OUTSIDE RECORDS SUMMARY | 2024-06-27 15:20 | XMS_ITS | Encounter Summary ---
Author Organization [facility] [place] [address] Care Team Providers Care Real Estate Professor Name Role Phone Magdalena Acosta MD Primary Care Provider [phone] Encounter Details Date Type Department Care Team [...] 11/02/2024 12:00 PM EDT Appointment [place] [address] 11/02/2024 1:00 PM EDT Office [place] [address] Magdalena Peralta MD [facility] [place] [address] 03/01/2025 4:15 PM EDT Office Visit Dermatology at [address] [place] [address] Marek Bonilla MD [address] [facility], [place] [address] documented as of this encounter Visit Diagnoses Not on filedocumented in this encounter Care Teams Real Estate Professor Relationship Specialty Start Date End Date Magdalena Acosta MD [address] [place] [address] PCP - General Family Medicine 02/05/23 documented as of this encounter
--- OUTSIDE RECORDS SUMMARY | 2024-06-27 15:20 | XMS_ITS | Encounter Summary ---
[facility] Organization [facility] [place] [address] Care Team Providers Care Genetics Teacher Name Role Phone Magdalena Acosta MD Primary Care Provider [phone] Reason for Visit * Auth/Cert (Routine) Specialty Diagnoses / Procedures Referred By Contac t Referred To Contact Diagnoses Symptomatic severe aortic stenosis with low ejection fraction NSTEMI, CHF Enrique Chua MD [facility] [place] [address] [facility] Referral ID Status Reason Start Date Expiration Date Visits Re quested Visits Authorized [id number] 1 1 Encounter Details Date Type Department Care Team (Late st Contact Info) Description 05/12/2023 2:50 PM EDT - 05/12/2023 3:50 PM EDT Surgery Telecommunication [place] [address] Antelmo Sharma MD [facility] [place] [address] CARDIAC CATHETERIZATION Social History Tobacco Use Types [...] Patient Age: 67 y.o. Birthdate: 1955 Language: Tuvaluan Race: White Ethnicity: Not nor Admit Date: 05/08/2023 Discharge Date: 05/22/2023 Attending Physician: Alirio Hudson MD Follow-up Recommendations for Providers: Please continue routine management of cardiovascular risk factors including blood pressure, lipids,glucose, etc. Please note any medication changes. Patient to follow up with PCP, Magdalena Acosta MD, or Primary Vessel Specialist, Avis Mejia MD, in ~ 7-10 days. Patient to follow up with Staff Anesthesiologist, Dr. Antelmo Sharma, in 2 weeks with an EKG, Echo, CBC, and CMP. Patient to follow up with Nephrology, their office to arrange. Svse-Ysuykp-as interval: After initial 30 day follow-up appointment , all TAVR patients will follow-up again in one year with an echo. Inpatient Provider Contact Information: [facility] Section of Cardiac Surgery 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 Secondary Diagnoses: Active Hospital Problems Diagnosis S/P TAVR (transcatheter aortic valve replacement) Cardiogenic shock Symptomatic severe aortic stenosis with low ejection fraction Mild coronary artery disease by [facility] 11/09/2022 Heart failure with reduced ejection [...] Placement Right 05/18/2023 Laure Ricks PA [facility] INTERVENTIONL RAD PRG CATH PLMT LEFT HEART CATH & ARTS W/INJ & ANGIO IMG S&I N/A 11/09/2022 CORONARY ANGIOGRAPHY; W [facility],POSSIBLE PCI (WRVU 5.6) performed by Mario Alberto Escobedo MD at [facility] CATH LABS PRG COMBINED RIGHT & LEFT HEART CATH W/INJ L VENTRICULOGRAPHY, IMG S&I N/A 05/12/2023 COMBINED RIGHT & LEFT HEART CATH,INC INJ FOR L VENTRICULOGRAPHY (WRVU 5.99) performed by Antelmo Sharma MD at [facility] CATH LABS PRO AORTOPLAS FOR SUPRAVALV STEN N/A 09/21/2016 @AORTOPLASTY FOR SUPRAVALVULAR STENOSIS (WRVU 29.33) performed by Alirio Hudson MD at [facility] MAIN OR PRO REPLACE AORTIC VALVE (TAVR/FEDERICO)PERC FEMORAL ARTERY APPROACH 05/12/2023 @TRANSCATHETER AORTIC VALVE REPLACEMENT (TAVR), PERCUTANEOUS FEMORAL (WRVU 22.47) performed by Alirio Hudson MD at [facility] CATH LABS PRO REPLACEMENT PROSTHETIC AORTIC VALVE OPEN W CARDIOPULMONARY BYPASS HOMOGRF/STENT N/A 09/21/2016 @REPLACE AORTIC VALVE, OPEN, W\CPB, W\PROSTHETIC VALVE (WRVU 41.32) performed by Alirio Hudson MD at [facility] MAIN OR Prior To Admission [...] Major Procedures/Operations: 05/12/23: Successful right transfemoral TAVR Dhtwe-bm-Tmvvp with a 23 mm Lai 3 THV. Left coronary protection with left main MINNA. Hospital Course: #Severe prosthetic s/p valve in valve TF TAVR #Low coronary heights s/p left main stent for coronary protection #Type 2 NSTEMI, present on arrival, resolved #Acute decompensated HFrEF #Cardiogenic shock #EVANS / Cardiorenal syndrome Purnima Thacker was admitted to [facility] on 05/08/2023 via the Cardiology Service [...] she was brought to the cardiac cath technologist the following morning where Drs. Alirio [...] if you have questions. Please call your Staff Anesthesiologist's office if you have any discharge or drainage from your procedural sites. Your Staff Anesthesiologist, Dr. Antelmo Sharma and/or the Front End Software Engineer may be reached at . Antibiotic [...] pain, warmth or drainage. Please call your application operations engineer's office if you have any discharge or drainage from your procedural sites. If there is a lot of swelling, apply mamta wraps during the day and remove at bedtime. Elevate your legs when you are sitting. Home oxygen therapy: N/A Follow up appointments: Please schedule a follow-up appointment with your PCP, Magdalena Acosta MD, or Primary Vessel Specialist in ~ 7-10 days. You have a follow-up appointment with your Staff Anesthesiologist, Dr. Antelmo Sharma, in 2 weeks with an EKG, Echo, and labs prior to your appointment. You will need follow-up with Nephrology, their office will arrange. Qolp-Dpvxfy-fe interval: After initial 30 day follow-up appointment [...] [facility] [place]rive at: [facility] [phone] 02/11/2024 2:00 PM Marek Bonilla MD Dermatology at [place] Arrive at: [facility] [address] [phone] Future Orders Complete By Expires Type and Screen Future Surgery, [facility] SAME DAY PROGRAM ONLY) [YSS9261 Custom] 05/11/2023 Process Instructions: This test is intended ONLY for patients with upcoming surgery for testing prior to the day of surgery obtained through the same day program (4V or SDP). For ALL OTHER PATIENTS, order a Type and Screen (ITC127) This order includes the physician order for an ABO Recheck if requested by the Blood Bank. Scheduling Instructions: Comments: Questions: Date of surgery: CBC (with Diff) [TQG159 Custom] 06/05/2023 12/05/2023 Process Instructions: INCLUDES: WBC, RBC, Hgb, Hct, Platelets, RBC Indices and Differential Scheduling Instructions: Comments: Questions: Comprehensive metabolic panel (non-fasting) [LAB17 Custom] 06/05/2023 08/20/2023 Process Instructions: INCLUDES: Calcium, T Protein, Albumin, AST, ALT, Alk Phos, T Bili, BUN, Creat, GFR, Glucose, Lytes. Scheduling Instructions: Comments: Questions: Echocardiogram Transthoracic [02308 CPT(R)] 06/05/2023 12/05/2023 Process Instructions: Scheduling Instructions: Questions: Where will study be performed?: [facility] Does the patient have Congenital Heart Disease?: Does patient require sedation?: GA rationale: EKG 12 Lead [27982 CPT(R)] 06/05/2023 12/05/2023 Process Instructions: Scheduling Instructions: Questions: Which location will this be performed?: [place] Is a rhythm strip needed?: No [facility] [employer] [EQ161 Custom] As directed Process Instructions: Scheduling Instructions: Questions: Device Needed: WALKER (E0143) Patient Height (cm): 154.9 cm (5' 0.98) Patient Weight: 75.4 kg (166 lb 3.2 oz) Diagnosis: Unsteady gait when walking Referral to Cardiac Rehab [VMJ308 Custom] As directed Process Instructions: If no progress note charted, please enter Clinical details in comments. Scheduling Instructions: Questions: My question or request is: s/p TAVR. Cardiac rehab at [facility]. Referral to Home Health [REF34 Custom] As directed Process Instructions: If no progress note charted, please enter Clinical details in comments. Scheduling Instructions: Comments: DOCUMENTATION FOR VNA SERVICES PATIENT'S LOCATION: Purnima Thacker [address] [place] [phone] (home) Tuber Operator's Name: Irineo and brother Raymond In discussion with the attending physician, it is certified that this patient is under his/her careand that MD, or an HEEL ATTACHER WOOD, CATTLE DIPPER, or PA who is working directly with him/her, had a pmbj-xf-fcbn encounter that meets the physician gcij-cj-raij encounter requirements with this patient on 05/22/2023. [...] for managing ADLs. HOME HEALTH CARE AGENCY: [facility]. [address] [facility] [address] PHONE: [phone] FAX: [phone] Start of care: Ideally 24-48 hours after [...] patient's PCP: Magdalena Acosta MD [address] [facility] [phone] All VNA agencies which cover the area of patient's residence have been reviewed, either verbally joao writing, and patient has chosen the home health care agency noted. Questions: Disciplines Requested: Physical Therapy Occupational Therapy Discharge References/Attachments None Arrangements for VNA/home care: As above. (delete if no VNA) Signed: EKATERINA NAVARRETE [facility] Section of Cardiac Surgery Date: 05/22/2023 CC: Magdalena Acosta MD Tig[place]Mario Alberto maxwell MD [address] [place] [address] [place] [address] documented in this encounter Discharge Instructions * Patient Instructions* Vinod Juárez PA - 05/22/2023 9:32 AM EDT TAVR Discharge Instructions: Call your doctor if: You have a fever of greater than 101 degrees, shaking chills, if you develop redness or drainage from your procedure sites, or if you have questions. Please call your Staff Anesthesiologist's office if you have any discharge or drainage from your procedural sites. Your Staff Anesthesiologist, Dr. Antelmo Sharma and/or the Front End Software Engineer may be reached at . Antibiotic [...] pain, warmth or drainage. Please call your application operations engineer's office if you have any discharge or drainage from your procedural sites. If there is a lot of swelling, apply mamta wraps during the day and remove at bedtime. Elevate your legs when you are sitting. Home oxygen therapy: N/A Follow up appointments: Please schedule a follow-up appointment with your PCP, Magdalena Acosta MD, or Primary Vessel Specialist in ~ 7-10 days. You have a follow-up appointment with your Staff Anesthesiologist, Dr. Antelmo Sharma, in 2 weeks with an EKG, Echo, and labs prior to your appointment. You will need follow-up with Nephrology, their office will arrange. Mxlg-Kdzoqa-fo interval: After initial 30 day follow-up appointment [...] ins ( tef) Haven Ba, PT Pager: [phone] Physical Therapy Inpatient Rehabilitation Department * Nico [...] 0600 and on the weekends please page [phone]. * Jory Paniagua - 05/20/2023 3:52 PM [...] vomiting Last Bowel Movement: 05/20/23 Jory Paniagua Life Scientist * Tong Mike, OT - 05/20/2023 [...] Placement Right 05/18/2023 Laure Ricks PA [facility] INTERVENTIONL RAD PRG CATH PLMT LEFT HEART CATH & ARTS W/INJ & ANGIO IMG S&I N/A 11/09/2022 CORONARY ANGIOGRAPHY; W [facility],POSSIBLE PCI (WRVU 5.6) performed by Mario Alberto Escobedo MD at [facility] CATH LABS PRG COMBINED RIGHT & LEFT HEART CATH W/INJ L VENTRICULOGRAPHY, IMG S&I N/A 05/12/2023 COMBINED RIGHT & LEFT HEART CATH,INC INJ FOR L VENTRICULOGRAPHY (WRVU 5.99) performed by Antelmo Sharma MD at [facility] CATH LABS PRO AORTOPLAS FOR SUPRAVALV STEN N/A 09/21/2016 @AORTOPLASTY FOR SUPRAVALVULAR STENOSIS (WRVU 29.33) performed by Alirio Hudson MD at [facility] MAIN OR PRO REPLACE AORTIC VALVE (TAVR/FEDERICO)PERC FEMORAL ARTERY APPROACH 05/12/2023 @TRANSCATHETER AORTIC VALVE REPLACEMENT (TAVR), PERCUTANEOUS FEMORAL (WRVU 22.47) performed by Alirio Hudson MD at [facility] CATH LABS PRO REPLACEMENT PROSTHETIC AORTIC VALVE OPEN W CARDIOPULMONARY BYPASS HOMOGRF/STENT N/A 09/21/2016 @REPLACE AORTIC VALVE, OPEN, W\CPB, W\PROSTHETIC VALVE (WRVU 41.32) performed by Alirio Hudson MD at [facility] MAIN OR Social History: Patient lives alone. Home Setup: Pt lives on one level with tub shower and three steps to enter. DME: none used HEMODIALYSIS PATIENT CARE SPECIALIST Baseline ADL/Mobility: Independent with ADLs and [...] awareness: WFL Vision & Perception: corrective lenses photography assistant Communication: WFL Range of motion, strength, [...] Discharge planning. Total Minutes, Occupational Therapy: 28 ([id number]) OT Evaluation Code Rationale: Diagnosis & Pertinent Co-Morbidities affecting Plan of Care: see PMHx Occupational Profile & Client History: Brief Expanded Extensive x Assessment of Occupational Performance: 1-3 performance deficits 3-5 performance deficits x 5 + performance deficits Clinical Decision Making: Low Moderate High x Clinical decision making of moderate complexity using standardized patient assessment instrument and measurable assessment of functional outcome. Pager: [phone] TONG MIKE OT 05/20/2023 Occupational Therapy Rehabilitation [...] 0600 and on the weekends please page [phone]. * Rylie Rodriguez MD - 05/19/2023 3:59 [...] and plan. Cynthia Blackburn MD Nephrology Pager: [phone] * Diana Espino - 05/19/2023 1:49 PM EDT Psychologist Educational Encounter Note Patient Name: Purnima Thacker : [id number] MR#: [id number] Admit Date: 05/08/2023 9:14 AM Hospital Day [...] as stated. Total Minutes, Physical Therapy: 38 ([phone]) Henrik Navarrete PTA Pager: [phone] Physical Therapy Inpatient Rehabilitation Department * Nico [...] 0600 and on the weekends please page [phone]. * Laure Ricks PA - 05/19/2023 7:56 [...] Ricks PA-C Interventional Radiology IR Team Pager [phone] * Consuelo Espinoza RN - 05/18/2023 4:13 PM EDT ANGIO NURSING DATABASE Name: Purnima Thacker Date of : 1955 AGE: 67 y.o. Address: [address] [place] [phone] (home) Mobile: No relevant phone numbers on [...] tremor G25.0 Hyperlipidemia, unspecified E78.5 Obesity E66.9 NICOALS (obstructive sleep apnea) G47.33 Rosacea L71.9 Neck pain M54.2 Mixed connective tissue disease M35.1 Symptomatic severe aortic stenosis with low ejection fraction I35.0 Mild coronary artery disease by [facility] 11/09/2022 I25.10 Heart failure with reduced [...] and plan. Cynthia Blackburn MD Nephrology Pager: [phone] * Magdalena Puri, COMPOSING ROOM SUPERVISOR - 05/18/2023 10:51 AM EDT Images from the original note were not included. Former[facility] [place] [address] [address] STRUCTURAL HEART DISEASE CONSULTATION NOTE PRIMARY CARE [...] stenosis. She is now status post TAVR Eogvr-op-Vukro with a 23 mm Lai 3 THV 05/12/[address] Sharma. Preliminary findings: Successful right transfemoral TAVR Mjehe-lk-Fvowp with a 23 mm Lai 3 THV. [...] fraction Mild coronary artery disease by [facility] 11/09/2022 Heart failure with reduced ejection [...] mg 4 mg Intravenous Q8H PRN Mara SerarnoTOREYN4 mg at 05/12/23 0736 pantoprazole EC (Protonix) [...] stenosis. She is now status post TAVR Xalpy-hh-Mpmfq with a 23 mm Lai 3 THV [...] Magdalena Puri APRN Structural Heart Team Pager [phone] Team Office Please see addendum by Dr. Sharma for final plan and recommendations Associated attestation - Antelmo Sharma MD - 05/19/2023 10:52 PM EDT I have reviewed Magdalena Puri APRN's above history and I agree with the details as written. The assessment and plan were formulated in discussion with me and I agree with them as documented. Antelmo Sharma MD Pager [phone] * Nico Palacios PA - 05/18/2023 8:13 [...] 0600 and on the weekends please page [phone]. * Loli Hernandez, PT - 05/17/2023 5:27 [...] plan as stated. Time IN / OUT: 2885-1094 Total Minutes, Physical Therapy: 54 Billing Code: te-sx2, te-f, angely HERNANDEZ PT Pager: [phone] Physical Therapy Inpatient Rehabilitation Department * Cynthia [...] Well controlled. Cynthia Blackburn MD Nephrology Pager: [phone] * Maggie, Mara, ANURAG - 05/17/2023 8:26 [...] on the weekends please page [phone]. * CurtistierneymeccaGuerda C - 05/16/2023 10:44 AM EDT Nutrition Services Note - Low Nutrition Acuity Purnima Thacker is a 67 y.o. female Reason for intervention: hospital day 9 Nutrition Plan: Continue diet order Encourage good PO Lasix and Zofran noted Added special serve: open containers Monitor weight Patient scheduled for a hospital day 9 nutrition evaluation. Screen Operator met with pt at bedside. Pt reports that her appetite and PO has much improved since admission. Denies nausea/vomiting or trouble chewing/swallowing. Screen Operator provided snack list but pt not interested in adding snacks at this time. Her only concern was that she is worried that she will eat too much which will cause too much pressure in her stomach. Screen Operator assured pt and suggested eating smaller [...] Last Bowel Movement: 05/10/23 Guerda Del Valle Life Scientist * Vinod Juárez PA - 05/16/2023 [...] 0600 and on the weekends please page [phone]. * Michael Jeffers MD - 05/16/2023 8:11 AM EDT Images from the original note were not included. Hypertension-Nephrology Inpatient Follow-up Purnima Thacker [id number] 1955 ID: 67 y.o. old female seen [...] IRONSAT 12 (L) 05/16/2023 SFOLATE >20.0 07/03/2022 [id number] 07/03/2022 Lab Results Component Value Date [...] Dr. Ayoub. Please contact me at phone: [phone] or pager: [phone] with any questions. Michael Jeffers MD Nephrology [...] -Nephrology consulted, labs and renal US ordered -Towson removed, ambulated around the unit -bilateral pleural [...] 0600 and on the weekends please page [phone]. * Hortencia Cody MD - 05/15/2023 2:07 [...] not included. Hypertension-Nephrology Inpatient Follow-up Purnima Thacker [id number] 1955 ID: 67 y.o. old female seen [...] HGB 7.8 (L) 05/13/2023 SFOLATE >20.0 07/03/2022 [id number] 07/03/2022 Lab Results Component Value Date [...] Dr. Ayoub. Please contact me at phone: [phone] or pager: [phone] with any questions. Michael Jeffers MD Nephrology [...] last 720 hours. T/L/D Art ETT CVL Export ASSESSMENT, MANAGEMENT, and DECISION MAKIN y.o. female [...] outlined inthis evaluation. HAVEN BA, PT Pager: [phone] Physical Therapy Inpatient Rehabilitation Department Time IN / OUT: 5837-0101 Total time: Total Minutes, Physical Therapy: 30 [...] 0600 and on the weekends please page [phone]. * Antelmo Sharma MD - 05/14/2023 7:56 AM EDT Images from the original note were not included. Former[facility] [address] [place], [place] [address] STRUCTURAL HEART DISEASE CONSULTATION NOTE PRIMARY CARE [...] stenosis. She is now status post TAVR Xbxjv-mk-Khfmr with a 23 mm Lai 3 THV 05/12/[address] Sharma. Preliminary findings: Successful right transfemoral TAVR Lzpbw-zu-Xoedi with a 23 mm Lai 3 THV. [...] fraction Mild coronary artery disease by [facility] 11/09/2022 Heart failure with reduced ejection [...] stenosis. She is now status post TAVR Kssrk-ah-Ucxyc with a 23 mm Lai 3 THV [...] Brody Kaplan APRN Structural Heart Team Pager [phone] Team Office Please see addendum by Dr. [...] exposure. Nephrology consultationtoday. Antelmo Sharma MD Pager [phone] * Antelmo Cardenas RN - 05/14/2023 5:18 AM EDT Pt AOx4, complaining of mild/moderate generalized pain (states her Meloxicam is effective at home) currently refusing prn oxycodone. NAEON, hemodynamically stable on Milrinone, Maps >65, ST in pxl534's down to NSR with frequent multifocal PVC's. [...] included. [facility] [place] [address] [address] STRUCTURAL HEART DISEASE PROGRESS NOTE PRIMARY CARE [...] stenosis. She is now status post TAVR Kfgxo-gg-Orlpj with a 23 mm Lai 3 THV 05/12/[address] Sharma. Preliminary findings: Successful right transfemoral TAVR Dgych-yw-Kvsfy with a 23 mm Lai 3 THV. [...] or perforation. Interval Events: - Transferred to [facility] post- [...] fraction Mild coronary artery disease by [facility] 11/09/2022 Heart failure with reduced ejection [...] 5- 20 mL Intravenous Q1Min PRN Lorri Chnichilla PA sodium chloride 0.9% infusion 10-30 mL/hr [...] stenosis. She is now status post TAVR Wbytv-ye-Okdoh with a 23 mm Lai 3 THV [...] Brody Kaplan APRN Structural Heart Team Pager [phone] Team Office Please see addendum by Dr. [...] DAPT moving forward. Antelmo Sharma MD Pager [phone] * KaBonita stewart PA - 05/13/2023 8:30 AM EDT Cardiac Surgery Progress Note Purnima Thacker is a 67 y.o. 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 PMH of s/p tissue AVR (2017), mixed connective tissue disease HTN, HLD, NICOLAS, diverticulosis, rosacea, essential tremor, and depression. 24h Events: From cardiac cath technologist for above procedure Extubated at ~1600 [...] soft b/l, no evidence of hematoma. Tubes/Lines/Drains: Towson, RIJ, A-line, Art, PIV Assessment/Plan: 67 y.o. [...] 0600 and on the weekends please page [phone]. * Onelia Schwartz MD - 05/12/2023 1:44 [...] fraction Mild coronary artery disease by [facility] 11/09/2022 Heart failure with reduced ejection [...] FiO2 weaned to 40%. 1105: ABG 7.34/42/73/22 5947-2727: SBT performed and passed on these settings [...] PCP: Magdalena Acosta MD PCP phone number: [phone] Date of Admission: 05/08/2023 ( Hospital Day [...] 0705/12/2331705/12/2310505/11/23193905/11/231446 PHART -- 7.34* 7.34* -- -- DJK2GKV -- 30* 30* -- -- PO2ART -- 72* 81* -- -- GLE4MOQ -- 16.0* 15.7* -- -- LACTATEVEN 2.4* 2.7* 2.7* 4.8* 2.9* VBG (Venous Blood Gas) Recent Labs 05/12/23 0700 05/12/2331705/12/2310505/11/23193905/11/231446 LACTATEVEN 2.4* 2.7* 2.7* 4.8* 2.9* Mixed Venous Sat Recent Labs 05/12/23 0508 05/12/23 0321 05/12/23 0114 05/12/23 0030 H3PSUG3 30.7 32.7 37.3 25.1 Objective: Vitals Last [...] signed by: ALIX RUVALCABA MD, [facility] ([phone]), at 05/10/2023 1:[address] Cardiac for [...] signed by: Cullen Narayanan MD, [facility] ([phone]), at 05/11/2023 4:[address] Angiogram Abdomen [...] first. Electronically signed by: Eileen Gomes MD, [facility] ([phone]), at 05/11/2023 2:42 PM XR Chest One [...] first. Electronically signed by: Will Rowe MD, [facility] ([phone]), at 05/11/2023 11:57 PM XR Chest One [...] first. Electronically signed by: Will Rowe MD, [facility] ([phone]), at 05/12/2023 3:16 AM Assessment & Plan: [...] and inotrope. She is planned for a sdhnh-uy-tnfnb TAVR this morning, which should hopefully improve [...] MD, FACP, FACC Section of Cardiovascular Medicine [facility] Isotope Hydrologistsupply chain coordinator [facility] at [facility] * Noreen Deutsch RN - [...] fraction Mild coronary artery disease by [facility] 11/09/2022 Heart failure with reduced ejection [...] 05/11/2023 4:11 PM EDT Reported off to CAMPUS ADMINISTRATOR and pt transferred over in the bed for higher level of care. * Antelmo Sharma MD - 05/11/2023 9:45 AM EDT Images from the original note were not included. [place] [address] STRUCTURAL HEART DISEASE CONSULTATION NOTE PRIMARY CARE [...] who had been referred for possible TAVR lhodw-jh-wrvcq evaluation. Her primary symptoms are of dyspnea [...] Ms. Thacker is originally from [facility]. 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 [...] fraction Mild coronary artery disease by [facility] 11/09/2022 Heart failure with reduced ejection [...] leads Confirmed by MD Harshil, Enrique Bell ([id number]) on 05/10/2023 8:11:46 AM Cardiac Cath 11/09/2022 [...] Brody Kaplan APRN Structural Heart Disease Pager [phone] Please see addendum by Dr. Sharma for [...] signed and dated. Antelmo Sharma MD Pager [phone] * Harini Lance MD - 05/11/2023 6:06 AM EDT Images from the original note were not included. Cardiology Progress Note Patient info: Name: Purnima Thacker : 1955 PCP: Magdalena Acosta MD PCP phone number: [phone] Date of Admission: 05/08/2023 ( Hospital Day [...] signed by: ALIX RUVALCABA MD, [facility] ([phone]), at 05/10/2023 1:25 PM TTE: 05/08 -Left [...] 09/2016) Mild coronary artery disease by [facility] 11/09/2022 Hyperlipidemia, unspecified NICOLAS (obstructive sleep [...] PCP: Magdalena Acosta MD PCP phone number: [phone] Date of Admission: 05/08/2023 ( Hospital Day [...] 09/2016) Mild coronary artery disease by [facility] 11/09/2022 Hyperlipidemia, unspecified NICOLAS (obstructive sleep [...] PCP: Magdalena Acosta MD PCP phone number: [phone] Date of Admission: 05/08/2023 ( Hospital Day [...] Gas) No results found for: PHART, PO2ART, QZF0VXS, EFW3MUD Microbiology: Microbiology Results (Last 30 days) No [...] 09/2016) Mild coronary artery disease by [facility] 11/09/2022 Hyperlipidemia, unspecified NICOLAS (obstructive sleep [...] I35.0 Mild coronary artery disease by [facility] 11/09/2022 I25.10 Heart failure with reduced ejection fraction due to heart valve disease I50.20, I38 Cardiogenic shock R57.0 S/P TAVR (transcatheter aortic valve replacement) Z95.2 Past Medical History: Diagnosis Date Anemia Past Surgical History: Procedure Laterality Date PRG CATH PLPR LEFT HEART CATH & ARTS W/INJ & ANGIO IMG S&I N/A 11/09/2022 CORONARY ANGIOGRAPHY; W [facility],POSSIBLE PCI (WRVU 5.6) performed by Mario Alberto Escobedo MD at [facility] CATH LABS PRO AORTOPLAS FOR SUPRAVALV STEN N/A 09/21/2016 @AORTOPLASTY FOR SUPRAVALVULAR STENOSIS (WRVU 29.33) performed by Alirio Hudson MD at [facility] MAIN OR PRO REPLACEMENT PROSTHETIC AORTIC VALVE OPEN W CARDIOPULMONARY BYPASS HOMOGRF/STENT N/A 09/21/2016 @REPLACE AORTIC VALVE, OPEN, W\CPB, W\PROSTHETIC VALVE (WRVU 41.32) performed by Alirio Hudson MD at [facility] MAIN OR Social History and [...] I35.0 Mild coronary artery disease by [facility] 11/09/2022 I25.10 Heart failure with reduced ejection fraction due to heart valve disease I50.20, I38 Cardiogenic shock R57.0 S/P TAVR (transcatheter aortic valve replacement) Z95.2 Past Medical History: Diagnosis Date Anemia Past Surgical History: Procedure Laterality Date PRG CATH [facility] LEFT HEART CATH & ARTS W/INJ & ANGIO IMG S&I N/A 11/09/2022 CORONARY ANGIOGRAPHY; W [facility],POSSIBLE PCI (WRVU 5.6) performed by Mario Alberto Escobedo MD at [facility] CATH LABS PRO AORTOPLAS FOR SUPRAVALV STEN N/A 09/21/2016 @AORTOPLASTY FOR SUPRAVALVULAR STENOSIS (WRVU 29.33) performed by Alirio Hudson MD at [facility] MAIN OR PRO REPLACEMENT PROSTHETIC AORTIC VALVE OPEN W CARDIOPULMONARY BYPASS HOMOGRF/STENT N/A 09/21/2016 @REPLACE AORTIC VALVE, OPEN, W\CPB, W\PROSTHETIC VALVE (WRVU 41.32) performed by Alirio Hudson MD at [facility] MAIN OR Social History and [...] Hgb 10.5 CMP - Cr 1.1 BNP 35118 HsTrop 1358 Lactate 1.6 D-dimer 1183 Interval [...] Klaudia Reid MD Internal Medicine PGY-1 Pager [phone], M1-S1 Service Associated attestation - Juan Luis Gonzalez MD - 05/08/2023 10:00 PM EDT Cardiology Attending Addendum Active Hospital Problems Diagnosis Symptomatic severe aortic stenosis with low ejection fraction Heart failure with reduced ejection fraction due to heart valve disease Mild coronary artery disease by [facility] 11/09/2022 Hyperlipidemia, unspecified History of aortic [...] PCP: Magdalena Acosta MD PCP phone number: [phone] Date of Admission: 05/08/2023 ( Hospital Day [...] Hgb 10.5 CMP - Cr 1.1 BNP 82905 HsTrop 1358 Lactate 1.6 D-dimer 1183 Vasoactive [...] to the planned procedure. 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 Crispin Timmons MD Front End Software Engineer Associated attestation - Onelia Schwartz MD [...] (flow was non-pulsatile) and appearance of blood. Towson-Marily catheter was placed and locked at 55 [...] information for follow-up [facility], [place] [address] [place] [address] Cardiac Rehab, [address] [place] [address] [facility], [place] [address] [place] [address] Transportation: family or friend will provide *Brother [...] Type: *No Product type* / Secondary Insurance: [employer] [place] Prescription Coverage: Yes This plan was formulated with input from patient, family (please identify family/friend involved ifapplicable) and team. All are in agreement with plan. Aliza Martino MSN-Ed, RN ACM keg filler Office of Care Management Pager #[phone] * Plan of Care - Favian Mckeon [...] Chaudhary RN - 05/21/2023 4:46 PM EDTSummary: [facility] referral OFFICE OF CARE MANAGEMENT [...] describing our affiliations within the [facility] and educate about their right to choose where referrals are sent. provide a list of Home Health Agencies / Durable Medical Equipment vendors which serve their preferred geographic area. They have requested referrals to: [facility] [address] [place] [address] Ortho Care Located @ [place], [place] Note routed to a Material Assistant who will communicate referrals to facilities and provide any required information. Transportation: family or friend will provide *Brother Raymond on Tuesday 05/22 at 1000 Barriers to discharge: Does not have home 22/02 assist available until tomorrow Tuesday 05/22 Plan going forward: Discharge home into the 22/02 home care of brother Raymond [facility] and [facility] PT/OT services on Tuesday 05/22 [...] Attending: All Staff: Staff Role Juanita Almaguer Database Engineer Laure Ricks PA Physician Engineering Design Manager Magdalena Rodriguez cops Nurse Consuelo Espinoza cops Nurse Post-operative diagnosis/Indication: Right pleural effusion Name [...] Type: *No Product type* / Secondary Insurance: [employer] [facility] [place] Last Physical Therapy Recommendation: group [...] Office of Care Management letter from the Scanning Manager pertaining to rehab referrals. provide a letter describing our affiliations within the [facility] and educate about their right to choose where referrals are sent. provide the CMS Star Quality Rating handout. review the different levels of rehab including SNF, swing, and acute. provide a list of facilities within their preferred geographic area. request that they provide at least three choices for referral. They have requested referrals to: [facility] [address] [place] [address] [facility] ([facility]) [address] [place] [address] (Accepts pts only after exhausting all other local SNF options) [facility] (Swing) ([facility]) [address] [place] [address] PHONE: [phone] FAX: [phone] [facility] (Swing) [facility]) [address] [place] [address] PHONE: [phone] FAX: [phone] Note routed to a Material Assistant who will communicate referrals to facilities [...] from the original note were not included. [facility] NEPHROLOGY/HYPERTENSION CONSULT NOTE PATIENT: Purnima Thacker [...] in her course. She ultimately underwent a rzecw-re-xmymr procedure on and tolerated it well (see operative details). [facility] and [facility] on some pressors support.. [...] 1423 05/12/23 1105 PHART 7.39 7.37 7.34* DTM4JDF 33* 36 42 PO2ART 101 102 73* GNT4YHD 19.5* 20.4 22.1 LACTATEVEN 1.5 1.8 2.8* RDM4KHU 40 40 40 PFRATIOART2 252 255 182 VBG (Venous Blood Gas) Recent Labs 05/12/23 1557 05/12/23 1423 05/12/23 1105 LACTATEVEN 1.5 1.8 2.8* Mixed Venous Sat Recent Labs 05/12/23 1425 05/12/23 0508 05/12/23 0321 S2JRJJ4 59.9 30.7 32.7 LFT's: Recent Labs 05/14/23 0110 05/13/23 0115 05/12/23 0600 BILITOT 0.4 0.5 0.9 BILIDIR -- 0.3 -- ALBUMIN 3.6 3.0* 3.5 ALKPHOS 86 85 100 ALT 437* 903* 1,174* AST 319* 792* 1,435* No results found for: UPROTCREAT No results found for: TPROTEINPEP, ALBELECT No results found for: MICROALBUR, PRXK62CMQ No results found for: HA1C Lab Results Component Value Date CALCIUM 8.5 05/14/2023 PHOS 4.7 (H) 05/08/2023 No results found for: 25OHVITD MICROBIOLOGY: ProcedureComponentValueUnitsDate/TimeUrine culture [[id number]]Collected: 05/11/231921Lab Status: Final resultSpecimen: Clean Catch UrineUpdated: [...] consulted for assessment if this patient needs GAS GENERATOR OPERATOR. Atthis time, we can likely hold off on GAS GENERATOR OPERATOR. Her volume status appears sufficient and her metabolic kanwal angements with mild acidosis is not too profound. Patient does not have significant uremic symptoms. We can hold off for today, but the patient is a high risk candidate for needing GAS GENERATOR OPERATOR in future daysespecially if her Cr curve trends the direction it is for the next several days. S/p Rwczy-iy-Ggybk TF TAVR: Management per cardiology. On milrinone gtt. PLAN: - Please obtain following diagnostics: renal US, urinalysis, urine prot/Cr ratio, urine albumin/Cr ratio, CK, uric acid, serum osmol, daily VBGs - No acute indications for GAS GENERATOR OPERATOR/dialysis. We will keep close eye on Cr trend, volume status, and metabolics to ensure patient still does not need GAS GENERATOR OPERATOR as she ensues intrinsic renal recovery [...] M.H.Katherine., M.A. PGY-V Nephrology-Hypertension Fellow Page # [phone] [facility] [address] 2nd floor, Size Painter [address] [place] [address] * Care Management - Mario Alberto Olmos [...] CENTER at 0945. Was intubated in the cardiac cath technologist due to agitation. Maintained bedrest for [...] Operative Note Patient Name: Purnima Thacker : [id number] MR#: [id number] Case Date: 05/12/2023 Surgeon: Surgeon(s) and Role: [...] procedure Note: Patient Name: Purnima Thacker : [id number] MR#: [id number] Case Date: 05/12/2023 Operators Surgeon: Surgeon(s) and Role: Panel 1: * Antelmo Shamra MD - Primary * Rebekah Tejeda MD [...] main with 4.0 x 30 mm Resolute [place] Drug Eluting Stent Perclose x1 + Angio-seal 8 Fr x1, RFA Manual pressure, LFA Manual pressure, LFV Endotracheal intubation (performed by cardiac anesthesia) Preliminary findings: Successful right transfemoral TAVR Pljib-eg-Abane with a 23 mm Lai 3 THV. [...] MD, M.Sc. Structural Heart Disease Fellow Pager :[phone] Antelmo Sharma MD Pager [phone] * Op Note - Alirio Hudson MD - 05/12/2023 7:37 AM EDT Preop Diagnosis: Severe aortic stenosis, symptomatic. Postop Diagnosis: Same. Procedure: Transfemoral TAVR procedure with 23mm valve. Surgeon: Alirio Hudson M.D. Vessel Specialist: Danny CULP Procedure: The patient was taken to the cardiac cath technologist. The patient had monitored anesthesia care. 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 [facility] [place] [address] STRUCTURAL HEART DISEASE CONSULTATION NOTE PRIMARY CARE [...] who had been referred for possible TAVR ahwmr-gc-yfzyn evaluation. Her primary symptoms are of dyspnea [...] Ms. Thacker is originally from [facility]. 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 [...] fraction Mild coronary artery disease by [facility] 11/09/2022 Heart failure with reduced ejection [...] leads Confirmed by MD Harshil, Enrique Bell ([id number]) on 05/10/2023 8:11:46 AM Assessment and Plan: [...] alert Dr. Hudson of her inpatient status, [place] primary cardiac surgeon. Based on recent clinic [...] Antelmo Sharma MD Structural Heart Disease Pager [phone] * Plan of Care - Sarahi Nice [...] VTE (Venous Thromboembolism) Risk Flowsheets (Taken 05/09/2023 2916) VTE Prevention/Management: anticoagulant therapy Intervention: Prevent Infection [...] listening utilized Taken 05/08/20231999 by Alivia Kauffman, bridge repair crew person/Support System Care: self-care encouraged support provided Problem: [...] receiving care in [place] must abide by [place] law. The hierarchy [...] confirmed as: [address] [facility] [address] Social & Family Supports: All names listed [...] Type: *No Product type* / Secondary Insurance: [employer] [place] ONLY if patient has Medicare A&B - Does this patient have secondary insurance?: Yes ; Prescription Coverage: Yes Preferred Pharmacy: updated to [facility] Status: Patient is a : No Primary Care Provider confirmed: Magdalena Acosta MD [phone] Patient/Caregiver Goals of Treatment: Potential Needs for [...] transition of care planning. Alie Bradshaw RN, Pager-[phone] * Plan of Care - Emily Lucero [...] 11/02/2024 12:00 PM EDT [place] [phone] 11/02/2024 1:00 PM EDT Office [place] [phone] Magdalena Peralta MD [facility] [place] [address] 03/01/2025 4:15 PM EDT Office Visit Dermatology at [place] [address] [place] [address] Marek Bonilla MD [address], [place] [address] Scheduled Referrals Name Type Priority Associated Diagnoses [...] EDT BLOOD GAS ARTERIAL POC Routine 3 3:57 PM EDT COOX, POC Routine 05/12/2023 2:25 PM EDT BLOOD GAS ARTERIAL POC Routine 3 2:23 PM EDT TROPONIN - SERIES STAT [...] Heart Cath W/Inj L Ventriculography, Img S&I ([id number]) 05/12/2023 7:37 AM EDT Aortic valve stenosis, [...] EST Narrative 07/08/2023 12:26 PM EST [address] [place] [address] ? Echocardiogram Report Name: PURNIMA THACKER ?Study Date: 07/08/2023 10:31 AMBP: 118/60 mmHg ? Patient Location: 4A : 1955 ? Height: 155 cm ? Account: [id number] Age: 67 yrs ? Weight: 74 kg Gender: Female ?BSA: 1.7 m2 Ordering Physician: ALIRIO HUDSON Referring Physician: VINOD JUÁREZ Performed By: Felicia Norris RODOLFO Reason For Study: S/P TAVR Exam Location: [facility]. Interpretation Summary Left ventricular systolic [...] no significant change (post-procedure). Procedure Limited - 13665. Doppler - 45279. Color Doppler - 12620. Satisfactory quality. This study is limited because [...] E/ e' (lat): 21.9 Med Peak E' Weor: 4.1 cm/sec E/e' (med): 18.2 E/e' Average: [...] Note Lee Kincaid MD - 07/08/2023 [address] [place] [address] Echocardiogram Report Name: PURNIMA THACKER Study Date: 0:31 AMBP: 118/60 mmHg Patient Location: : 1955 Height: 155 cm Account: [id number] Age: 67 yrs Weight: 74 kg Gender: Female BSA: 1.7 m2 Ordering Physician: ALIRIO HUDSON Referring Physician: VINOD JUÁREZ Performed By: Felicia Norris RDCS Reason For Study: S/P TAVR Exam Location: [facility]. Interpretation Summary Left ventricular systolic [...] is nosignificant change (post-procedure). Procedure Limited - 45171. Doppler - 40216. Color Doppler - 27329. Satisfactoryquality. This study is limited because of [...] EST) Glucose 93 65 - 199 mg/dL [facility] Comment:Diabetes: >=200 mg/d L plus symptoms Blood Urea Nitrogen 19(H) 8 - 18 mg/dL [facility] Creatinine 0.81 0.70 - 1.20 mg/dL [facility] Sodium 142 135 - 145 mmol/L [facility] Potassium 3.8 3.5 - 5.0 mmol/L [facility] Comment: Please note: ??Patients with WBC >100,000 may have falsely elevated Potassium levels. ??For accurate Potassium quantification in these patients send serum separator tube (gold top) for subsequent determinations. ??Contact the Clinical Chemistry Laboratory if there are any questions. Chloride 104 98 - 107 mmol/L [facility] Carbon Dioxide 26 22 - 31 mmol/L [facility] Anion Gap 12 5 - 15 mmol/L [facility] Calcium 10.2 8.5 - 10.5 mg/dL [facility] Protein, Total 7.4 6.1 - 8.0 g/dL [facility] Albumin 4.1 3.2 - 5.2 g/dL [facility] Aspartate Aminotransferase 24 0 - 30 unit/L [facility] Alanine Aminotransferase 12 0 - 30 unit/L [facility] Alkaline Phosphatase 93 35 - 105 unit/L [facility] Bilirubin, Total 0.3 0.2 - 1.3 mg/dL [facility] Est Glomerular Filtration Rate 80 >=60 mL/min/1. 73 m?? [facility] Co de Phone Number [facility] [place] [address] * (ABNORMAL) Basic Metabolic Panel (non-fasting) (05/22/2023 3:57 AM EDT) Pathologist [facility] Glucose 88 65 - 199 mg/dL [facility] Comment:Diabetes: >=200 mg/d L plus symptoms Blood Urea Nitrogen 21(H) 8 - 18 mg/dL [facility] Creatinine 0.69(L) 0.70 - 1.20 mg/dL [facility] Sodium 136 135 - 145 mmol/L [facility] Potassium 3.6 3.5 - 5.0 mmol/L [facility] Comment: Please note: ??Patients with WBC >100,000 may have falsely elevated Potassium levels. ??For accurate Potassium quantification in these patients send serum separator tube (gold top) for subsequent determinations. ??Contact the Clinical Chemistry Laboratory if there are any questions. Chloride 102 98 - 107 mmol/L [facility] Carbon Dioxide 23 22 - 31 mmol/L [facility] Anion Gap 11 5 - 15 mmol/L [facility] Calcium 8.6 8.5 - 10.5 mg/dL [facility] Est Glomerular Filtration Rate 95 >=60 mL/min/1. 73 m?? [facility] [...] Lab Mara Serrano APRN CHEMISTRY ORDERABL ES [facility] [place] [address] * (ABNORMAL) Basic Metabolic Panel (non-fasting) (05/21/2023 5:06 AM EDT) Pathologist [facility] Glucose 87 65 - 199 mg/dL [facility] Comment:Diabetes: >=200 mg/d L plus symptoms Blood Urea Nitrogen 25(H) 8 - 18 mg/dL [facility] Creatinine 0.84 0.70 - 1.20 mg/dL [facility] Sodium 136 135 - 145 mmol/L [facility] Potassium 3.6 3.5 - 5.0 mmol/L [facility] Comment: Please note: ??Patients with WBC >100,000 may have falsely elevated Potassium levels. ??For accurate Potassium quantification in these patients send serum separator tube (gold top) for subsequent determinations. ??Contact the Clinical Chemistry Laboratory if there are any questions. Chloride 102 98 - 107 mmol/L [facility] Carbon Dioxide 26 22 - 31 mmol/L [facility] Anion Gap 8 5 - 15 mmol/L [facility] Calcium 8.9 8.5 - 10.5 mg/dL [facility] Est Glomerular Filtration Rate 76 >=60 mL/min/1. 73 m?? [facility] [...] Comment Spec In Lab [facility] COMPOSING ROOM SUPERVISOR CHEMISTRY ORDERABL ES Performing Organization Address City/[facility]/ZIP Co de Phone Number [facility] [place] [address] * Lavender Tube HOLD (05/20/2023 2:52 AM EDT) Lavender Hold Sample in lab. [facility] Blood Venous Draw / Unknown 05/20/2023 2:52 AM EDT 05/20/2023 3:04 AM EDT [facility] COMPOSING ROOM SUPERVISOR HEMATOLOGY ORDERAB LES [facility] [place] [address] * (ABNORMAL) Basic Metabolic Panel (non-fasting) (05/20/2023 2:52 AM EDT) Glucose 152 65 - 199 mg/dL [facility] Comment:Diabetes: >=200 mg/d L plus symptoms Blood Urea Nitrogen 33(H) 8 - 18 mg/dL [facility] Creatinine 0.82 0.70 - 1.20 mg/dL [facility] Sodium 137 135 - 145 mmol/L [facility] Potassium 3.7 3.5 - 5.0 mmol/L [facility] Comment: Please note: ??Patients with WBC >100,000 may have falsely elevated Potassium levels. ??For accurate Potassium quantification in these patients send serum separator tube (gold top) for subsequent determinations. ??Contact the Clinical Chemistry Laboratory if there are any questions. Chloride 99 98 - 107 mmol/L [facility] Carbon Dioxide 22 22 - 31 mmol/L [facility] Anion Gap 16(H) 5 - 15 mmol/L [facility] Calcium 9.0 8.5 - 10.5 mg/dL [facility] Est Glomerular Filtration Rate 78 >=60 mL/min/1. 73 m?? [facility] [...] Agency Comment Spec In Lab Mara Serrano COMPOSING ROOM SUPERVISOR CHEMISTRY ORDERABL ES [facility] [place] [address] * (ABNORMAL) Potassium (05/20/2023 2:52 AM EDT) Potassium 3.4(L) 3.5 - 5.0 mmol/L [facility] [...] Agency Comment Spec In Lab Mara Serrano COMPOSING ROOM SUPERVISOR CHEMISTRY ORDERABL ES [facility] [place] [address] * XR Chest PA & Lateral (Generic) [...] first. Electronically signed by: Chyna Johnson MD, [facility]([phone]), at 05/19/2023 2:19 PM Alirio Hudson MD IMG DX ORDERABLES * (ABNORMAL) Basic Metabolic Panel (non-fasting) (05/19/2023 5:49 AM EDT) Glucose 93 65 - 199 mg/dL [facility] Comment:Diabetes: >=200 mg/d L plus symptoms Blood Urea Nitrogen 45(H) 8 - 18 mg/dL [facility] Creatinine 1.02 0.70 - 1.20 mg/dL [facility] Sodium 138 135 - 145 mmol/L [facility] Potassium 3.9 3.5 - 5.0 mmol/L [facility] Comment: Please note: ??Patients with WBC >100,000 may have falsely elevated Potassium levels. ??For accurate Potassium quantification in these patients send serum separator tube (gold top) for subsequent determinations. ??Contact the Clinical Chemistry Laboratory if there are any questions. Chloride 102 98 - 107 mmol/L [facility] Carbon Dioxide 26 22 - 31 mmol/L [facility] Anion Gap 10 5 - 15 mmol/L [facility] Calcium 9.7 8.5 - 10.5 mg/dL [facility] Est Glomerular Filtration Rate 60 >=60 mL/min/1. 73 m?? [facility] [...] Lab Mara Serrano ANURAG CHEMISTRY ORDERABL ES [facility] [place] [address] * IR Chest Tube Placement Right (05/18/2023 [...] EDT) Glucose 95 65 - 199 mg/dL [facility] Comment:Diabetes: >=200 mg/d L plus symptoms Blood Urea Nitrogen 71(H) 8 - 18 mg/dL [facility] Comment:result rechecked-[facility] Creatinine 1.64(H) 0.70 - 1.20 mg/dL [facility] Comment:result rechecked-[facility] Sodium 137 135 - 145 mmol/L [facility] Potassium 3.7 3.5 - 5.0 mmol/L [facility] Comment: Please note: ??Patients with WBC >100,000 may have falsely elevated Potassium levels. ??For accurate Potassium quantification in these patients send serum separator tube (gold top) for subsequent determinations. ??Contact the Clinical Chemistry Laboratory if there are any questions. Chloride 100 98 - 107 mmol/L [facility] Carbon Dioxide 24 22 - 31 mmol/L [facility] Anion Gap 13 5 - 15 mmol/L [facility] Calcium 9.7 8.5 - 10.5 mg/dL [facility] Est Glomerular Filtration Rate 34(L) >=60 mL/min/1. 73 m?? [facility] [...] Agency Comment Spec In Lab Mara Serrano COMPOSING ROOM SUPERVISOR CHEMISTRY ORDERABL ES [facility] [place] [address] * XR Chest PA & Lateral (Generic) [...] signed by: Ghassan Reyes MD, [facility] ??([phone]), at 05/17/2023 11:46 AM Narrative 05/17/2023 11:46 [...] first. Electronically signed by: Ghassan Reyes MD, [facility] [facility]([phone]), at 05/17/2023 11:46 AM Alirio Hudson MD IMG DX ORDERABLES * (ABNORMAL) Comprehensive metabolic panel (non-fasting) (05/17/2023 4:35 AM EDT) Glucose 89 65 - 199 mg/dL [facility] Comment:Diabetes: >=200 mg/d L plus symptoms Blood Urea Nitrogen 97(H) 8 - 18 mg/dL [facility] Creatinine 2.97(H) 0.70 - 1.20 mg/dL [facility] Comment:result rechecked-JSJ Sodium 135 135 - 145 mmol/L [facility] Potassium 4.1 3.5 - 5.0 mmol/L [facility] Comment: Please note: ??Patients with WBC >100,000 may have falsely elevated Potassium levels. ??For accurate Potassium quantification in these patients send serum separator tube (gold top) for subsequent determinations. ??Contact the Clinical Chemistry Laboratory if there are any questions. Chloride 97(L) 98 - 107 mmol/L [facility] Carbon Dioxide 22 22 - 31 mmol/L [facility] Anion Gap 16(H) 5 - 15 mmol/L [facility] Calcium 9.6 8.5 - 10.5 mg/dL [facility] Protein, Total 6.5 6.1 - 8.0 g/dL [facility] Albumin 3.7 3.2 - 5.2 g/dL [facility] Aspartate Aminotransferase 58(H) 0 - 30 unit/L [facility] Alanine Aminotransferase 66(H) 0 - 30 unit/L [facility] Alkaline Phosphatase 86 35 - 105 unit/L [facility] Bilirubin, Total 0.6 0.2 - 1.3 mg/dL [facility] Est Glomerular Filtration Rate 17(L) >=60 mL/min/1. 73 m?? [facility] MD CHEMISTRY ORDERABLE S Performing Organization Address [facility] Co de Phone Number [facility] [place] [address] * Potassium (05/16/2023 11:15 PM EDT) Potassium 3.7 3.5 - 5.0 mmol/L [facility] MD CHEMISTRY ORDERABLE S Performing Organization Address [facility] Co de Phone Number [facility] [place] [address] * Magnesium (05/16/2023 5:22 PM EDT) Magnesium 0.96 0.69 - 1.07 mmol/L [facility] Blood 05/16/2023 5:22 PM EDT 05/16/2023 5:27 PM EDT Narrative Resulting Agency Comment Spec In Lab Alirio Hudson MD CHEMISTRY ORDERABLE S Performing Organization Address [facility] Co de Phone Number [facility] [place] [address] * (ABNORMAL) Basic Metabolic Panel (non-fasting) (05/16/2023 5:22 PM EDT) Glucose 106 65 - 199 mg/dL [facility] Comment:Diabetes: >=200 mg/d L plus symptoms Blood Urea Nitrogen 103(H) 8 - 18 mg/dL [facility] Creatinine 3.91(H) 0.70 - 1.20 mg/dL [facility] Comment:result rechecked-imm Sodium 132(L) 135 - 145 mmol/L [facility] Potassium 3.6 3.5 - 5.0 mmol/L [facility] Comment: Please note: ??Patients with WBC >100,000 may have falsely elevated Potassium levels. ??For accurate Potassium quantification in these patients send serum separator tube (gold top) for subsequent determinations. ??Contact the Clinical Chemistry Laboratory if there are any questions. Chloride 92(L) 98 - 107 mmol/L [facility] Carbon Dioxide 22 22 - 31 mmol/L [facility] Anion Gap 18(H) 5 - 15 mmol/L [facility] Calcium 9.7 8.5 - 10.5 mg/dL [facility] Est Glomerular Filtration Rate 12(L) >=60 mL/min/1. 73 m?? [facility] [...] Lab Alirio Hudson MD CHEMISTRY ORDERABLE S [facility] [place] [address] * (ABNORMAL) Potassium (05/16/2023 11:43 AM EDT) Potassium 3.3(L) 3.5 - 5.0 mmol/L [facility] [...] MD CHEMISTRY ORDERABLE S Performing Organization Address [facility]/ZIP Co de Phone Number [facility] [place] [address] * (ABNORMAL) Ferritin (05/16/2023 4:41 AM EDT) Ferritin 1,813(H) 30 - 400 ng/mL [facility] Comment: Pediatric reference ranges not [place] [facility] interpret with caution. Reference ranges for females greater than 50 years of age approach values for men, i.e., 30-400 ng/mL. Blood 05/16/2023 4:41 AM EDT 05/16/2023 4:54 AM EDT Narrative Resulting Agency Comment Spec In Lab Kristopher Ayoub MD CHEMISTRY ORDERABLES Performing Organization Address [facility] Co de Phone Number [facility] [place] [address] * (ABNORMAL) PTH (05/16/2023 4:41 AM EDT) Pathologist [facility] Parathyroid Hormone 120(H) 15 - 65 pg/mL [facility] Blood 05/16/2023 4:41 AM EDT 05/16/2023 4:54 AM EDT Narrative Resulting Agency Comment Spec In Lab Kristopher Ayoub MD CHEMISTRY ORDERABLES Performing Organization Address [facility] Co de Phone Number [facility] [place] [address] * Vitamin D, 25-Hydroxy (05/16/2023 4:41 AM EDT) Vitamin D Total 25 OH 33 21 - 100 ng/mL [facility] Vit D Interp Sufficient [facility] Blood 05/16/2023 4:41 AM EDT 05/16/2023 4:54 AM EDT Narrative Resulting Agency Comment Spec In Lab Kristopher Ayoub MD CHEMISTRY ORDERABLES [facility] [place] [address] * (ABNORMAL) Blood Gas Venous ([facility]) (05/16/2023 4:22 AM EDT) pH, Venous 7.41 7.32 - 7.42 [facility] PCO2, Venous 32(L) 41 - 51 mmHg [facility] PO2, Venous 73(H) 25 - 40 mmHg [facility] Bicarbonate, Venous 19.6 mmol/L [facility] Base Excess, Venous -5.1 mmol/L [facility] Hgb Blood Gas 9.7(L) 11.7 - 15.5 g/dL [facility] Oxyhemoglobin, Venous 92.8 % [facility] Carboxyhemoglob in, Venous 0.1 % [facility] Comment: Nonsmokers: 0.5-1.5% COHB Smokers: Variable, but usually less than 10% Toxic: 20-30% COHB Lethal: Greater than 60% COHB Methemoglobin, Venous 0.3 <=1.5 % [facility] Na Whole Blood 130(L) 135 - 145 mmol/L [facility] K Whole Blood 3.7 3.5 - 5.0 mmol/L [facility] Comment: Please note: Patients with WBC >100,000 may have falsely elevated Potassium levels. Contact the Clinical Chemistry Laboratory if there are any questions. ICa Whole Blood 1.15 1.15 - 1.33 mmol/L [facility] Comment: Note: ??Total bilirubin higher than 20 mg/dL may lead to falsely low ionized calcium. CL Whole Blood 95(L) 98 - 107 mmol/L [facility] Gluc Whole Bld 82 65 - 199 mg/dL [facility] Comment:Diabetes: >=200 mg/d L plus symptoms Lactate WB 1.1 0.5 - 2.2 mmol/L [facility] Blood Gas Source Venous [facility] Blood Venous Draw / Unknown 05/16/2023 4:22 AM EDT 05/16/2023 4:31 AM EDT Narrative Resulting Agency Comment Spec In Lab Bonita TOBAR [place] [address] * (ABNORMAL) Differential, Automated (05/16/2023 4:20 AM EDT) Neutrophil % 84.1 % [facility] Neutrophil Absolute 6.22(H) 1.70 - 6.10 x10(3)/mc L [facility] Lymph % 5.8 % [facility] Lymphocytes Abs 0.4(L) 0.9 - 3.2 x10(3)/mc L [facility] Monocyte % 8.8 % [facility] Monocyte Abs 0.6 0.3 - 0.9 x10(3)/mc L [facility] Eos % 0.4 % [facility] Eosinophils Abs 0.0 0.0 - 0.4 x10(3)/mc L [facility] Basophil % 0.0 % [facility] Baso Absolute 0.0 0.0 - 0.1 x10(3)/mc L [facility] Immature Gran % 0.90 % [facility] Comment: Immature granulocytes(IG's)percentage and absolute count will include metamyelocytes, myelocytes, and promyelocytes. Blood smears from CBCs yielding IG's will be scanned manually for concordance. If this scan disagrees with the automated IG or if promyelocytes are noted, a manual differential will be performed. Immature Gran Absolute 0.07(H) 0.00 - 0.04 x10(3)/mc L [facility] Blood 05/16/2023 4:20 AM EDT 05/16/2023 4:29 AM EDT Narrative Resulting Agency Comment Spec In Lab James Agustin MD HEMATOLOGY ORDER JODIE Performing Organization Address City/[facility]/[place] [address] * (ABNORMAL) Hemogram (05/16/2023 4:20 AM EDT) White Blood Cell 7.4 4.0 - 9.5 x10(3)/mc L [facility] Red Blood Cell 2.40(L) 4.00 - 5.21 x10(6)/mc L [facility] Hemoglobin 7.8(L) 11.7 - 15.5 g/dL [facility] Hematocrit 22.5(L) 35.7 - 45.8 % [facility] Mean Cell Volume 93.8 82.6 - 94.4 fL [facility] Mean Cell Hemoglobin 32.5(H) 27.1 - 32.0 pg [facility] Mean Cell Hemoglobin Concentration 34.7 31.7 - 35.0 g/dL [facility] Platelet 120(L) 145 - 357 x10(3)/mc L [facility] RDW Standard Deviation 42.9 37.0 - 46.0 fL [facility] RDW coefficient of variation 12.9 11.5 - 14.1 % [facility] Mean Platelet Volume 11.3 7.6 - 12.9 fL [facility] NRBC% auto 0.7 % [facility] NRBC Absolute 0.050(H) 0.000 - 0.000 x10(3)/ L [facility] Blood 05/16/2023 4:20 AM EDT 05/16/2023 4:29 AM EDT Narrative Resulting Agency Comment Spec In Lab James Agustin MD HEMATOLOGY ORDER JODIE [facility] [address] [place] [address] * (ABNORMAL) Basic Metabolic Panel (non-fasting) (05/16/2023 4:20 AM EDT) Glucose 89 65 - 199 mg/dL [facility] Comment:Diabetes: >=200 mg/d L plus symptoms Blood Urea Nitrogen 108(H) 8 - 18 mg/dL [facility] Creatinine 4.74(H) 0.70 - 1.20 mg/dL [facility] Comment:result rechecked-OLIVA Sodium 132(L) 135 - 145 mmol/L [facility] Potassium 3.9 3.5 - 5.0 mmol/L [facility] Comment: Please note: ??Patients with WBC >100,000 may have falsely elevated Potassium levels. ??For accurate Potassium quantification in these patients send serum separator tube (gold top) for subsequent determinations. ??Contact the Clinical Chemistry Laboratory if there are any questions. Chloride 95(L) 98 - 107 mmol/L [facility] Carbon Dioxide 18(L) 22 - 31 mmol/L [facility] Anion Gap 19(H) 5 - 15 mmol/L [facility] Calcium 9.2 8.5 - 10.5 mg/dL [facility] Est Glomerular Filtration Rate 10(L) >=60 mL/min/1. 73 m?? [facility] [...] Lab Alirio Hudson MD CHEMISTRY ORDERABLE S [facility] [place] [address] * (ABNORMAL) Iron and TIBC (05/16/2023 4:20 AM EDT) Iron 31 30 - 150 mcg/dL [facility] TIBC 259 250 - 450 mcg/dL [facility] Iron Saturation 12(L) 20 - 50 % [facility] Blood 05/16/2023 4:20 AM EDT 05/16/2023 4:29 AM EDT Narrative Resulting Agency Comment Spec In Lab Kristopher Ayoub MD CHEMISTRY ORDERABLES [facility] [place] [address] * (ABNORMAL) Basic Metabolic Panel (non-fasting) (05/15/2023 12:50 AM EDT) Glucose 101 65 - 199 mg/dL [facility] Comment:Diabetes: >=200 mg/d L plus symptoms Blood Urea Nitrogen 109(H) 8 - 18 mg/dL [facility] Creatinine 5.62(H) 0.70 - 1.20 mg/dL [facility] Comment:result rechecked-KS Sodium 131(L) 135 - 145 mmol/L [facility] Comment:result rechecked-KS Potassium 3.7 3.5 - 5.0 mmol/L [facility] Comment: result rechecked-KS Please note: ??Patients with WBC >100,000 may have falsely elevated Potassium levels. ??For accurate Potassium quantification in these patients send serum separator tube (gold top) for subsequent determinations. ??Contact the Clinical Chemistry Laboratory if there are any questions. Chloride 92(L) 98 - 107 mmol/L [facility] Comment:result rechecked-KS Carbon Dioxide 18(L) 22 - 31 mmol/L [facility] Comment:result rechecked-KS Anion Gap 21(H) 5 - 15 mmol/L [facility] Calcium 8.9 8.5 - 10.5 mg/dL [facility] Est Glomerular Filtration Rate 8(L) >=60 mL/min/1. 73 m?? [facility]/ZIP Co de Phone Number [facility] [place] [address] * (ABNORMAL) Hemogram (05/15/2023 12:50 AM EDT) White Blood Cell 9.1 4.0 - 9.5 x10(3)/mc L [facility] Red Blood Cell 2.19(L) 4.00 - 5.21 x10(6)/mc L [facility] Hemoglobin 7.2(L) 11.7 - 15.5 g/dL [facility] Hematocrit 20.6(L) 35.7 - 45.8 % [facility] Mean Cell Volume 94.1 82.6 - 94.4 fL [facility] Mean Cell Hemoglobin 32.9(H) 27.1 - 32.0 pg [facility] Mean Cell Hemoglobin Concentration 35.0 31.7 - 35.0 g/dL [facility] Platelet 109(L) 145 - 357 x10(3)/mc L [facility] RDW Standard Deviation 43.6 37.0 - 46.0 fL [facility] RDW coefficient of variation 12.9 11.5 - 14.1 % [facility] Mean Platelet Volume 10.4 7.6 - 12.9 fL [facility] NRBC% auto 2.1 % [facility] NRBC Absolute 0.190(H) 0.000 - 0.000 x10(3)/mc L [facility] Blood 05/15/2023 12:5 0 AM EDT 05/15/2023 12:52 AM EDT Narrative Resulting Agency Comment Spec In Lab Alirio Hudson MD HEMATOLOGY ORDERABL ES Performing Organization Address [facility] Co de Phone Number [facility] [place] [address] * (ABNORMAL) BLOOD GAS 2 VENOUS (05/15/2023 12:49 AM EDT) pH, Venous 7.33 7.32 - 7.42 [facility] PCO2, Venous 37(L) 41 - 51 mmHg [facility] PO2, Venous 34 25 - 40 mmHg [facility] Bicarbonate, Venous 19.1 mmol/L [facility] Base Excess, Venous -6.8 mmol/L [facility] Hgb Blood Gas 10.8(L) 11.7 - 15.5 g/dL [facility] Oxyhemoglobin, Venous 58.1 % [facility] Carboxyhemoglob in, Venous 0.3 % [facility] Comment: Nonsmokers: 0.5-1.5% COHB Smokers: Variable, but usually less than 10% Toxic: 20-30% COHB Lethal: Greater than 60% COHB Methemoglobin, Venous 0.6 <=1.5 % [facility] Na Whole Blood 136 135 - 145 mmol/L [facility] K Whole Blood 3.7 3.5 - 5.0 mmol/L [facility] Comment: Please note: Patients with WBC >100,000 may have falsely elevated Potassium levels. Contact the Clinical Chemistry Laboratory if there are any questions. ICa Whole Blood 1.12(L) 1.15 - 1.33 mmol/L [facility] Comment: Note: ??Total bilirubin higher than 20 mg/dL may lead to falsely low ionized calcium. CL Whole Blood 95(L) 98 - 107 mmol/L [facility] Gluc Whole Bld 101 65 - 199 mg/dL [facility] Comment:Diabetes: >=200 mg/d L plus symptoms Lactate WB 1.3 0.5 - 2.2 mmol/L [facility] Flow, Mike 1.0 LPM [facility] Blood Gas Source Venous [facility] Blood 05/15/2023 12:4 9 AM EDT 05/15/2023 12:49 AM EDT Alirio Hudson MD POINT OF CARE TEST ORDERABLES [facility] [address] [place] [address] * US Retroperitoneal Complete (05/14/2023 3:53 PM [...] signed by: Hayden Robledo MD, [facility] ([phone]), at 05/14/2023 4:32 PM Thank you for [...] 04:39 pm) PATIENT INFO: ID #: ? [id number] ?: ??55 (67 yrs)(F) Name: ? PURNIMA THACKER ?Visit Date: 05/14/2023 03:44 pm PERFORMED BY: Attending: ?Meena CULP, Hayden Stafford Resident: ? Nell CULP, Anand August Performed By: ? Dimas Tello RDMSa Referred By: ?ALIRIO HUDSON Location: ? [place] SERVICE(S) PROVIDED: URETRO - Retroperitoneal Complete - [id number] ? [id number] INDICATIONS: [facility]ANS COMPARISON: CT: Abdomen/Pelvis 05/11/23 RIGHT [...] effusion Procedure Note Hayden Robledo MD - 10/13/2023 Renal (Signed Final 05/14/2023 04:39 pm) PATIENT INFO: ID #: [id number] : 55 (67 yrs)(F) Name: PURNIMA THACKER Visit Date: 05/14/2023 03:44 pm PERFORMED BY: Attending: Hayden Robledo MD Resident: Anand Camejo MD Performed By: Consuelo Tello RDMS Referred By: ALIRIO HUDSON Location: [place] SERVICE(S) PROVIDED: URETRO - Retroperitoneal Complete - [id number] INDICATIONS: EVANS COMPARISON: CT: Abdomen/Pelvis 05/11/23 RIGHT [...] signed by: Hayden Robledo MD, [facility] ([phone]), at 05/14/2023 4:32 PM Thank you for [...] Creatine Kinase 123 0 - 160 unit/L [facility] Blood 05/14/2023 3:17 PM EDT 05/14/2023 3:31 PM EDT Narrative Resulting Agency Comment Spec In Lab Alirio Hudson MD CHEMISTRY ORDERABLE S Performing Organization Address [facility] Co de Phone Number [facility] [place] [address] * (ABNORMAL) Uric acid (05/14/2023 3:17 PM EDT) Uric Acid 14.9(H) 2.5 - 6.5 mg/dL [facility] Blood 05/14/2023 3:17 PM EDT 05/14/2023 3:31 PM EDT Narrative Resulting Agency Comment Spec In Lab Alirio Hudson MD CHEMISTRY ORDERABLE S Performing Organization Address [facility] [place] [address] * (ABNORMAL) Osmolality (05/14/2023 3:17 PM EDT) Osmolality 311(H) 275 - 295 mOsm/kg [facility] Blood 05/14/2023 3:17 PM EDT 05/14/2023 3:31 PM EDT Narrative Resulting Agency Comment Spec In Lab Alirio Hudson MD CHEMISTRY ORDERABLE S Performing Organization Address City/[facility]/[place] [address] * (ABNORMAL) Differential, Automated (05/14/2023 1:10 AM EDT) Neutrophil % 87.2 % [facility] Neutrophil Absolute 9.74(H) 1.70 - 6.10 x10(3)/mc L [facility] Lymph % 3.9 % [facility] Lymphocytes Abs 0.4(L) 0.9 - 3.2 x10(3)/mc L [facility] Monocyte % 7.9 % [facility] Monocyte Abs 0.9 0.3 - 0.9 x10(3)/mc L [facility] Eos % 0.0 % [facility] Eosinophils Abs 0.0 0.0 - 0.4 x10(3)/mc L [facility] Basophil % 0.1 % [facility] Baso Absolute 0.0 0.0 - 0.1 x10(3)/mc L [facility] Immature Gran % 0.90 % [facility] Comment: Immature granulocytes(IG's)percentage and absolute count will include metamyelocytes, myelocytes, and promyelocytes. Blood smears from CBCs yielding IG's will be scanned manually for concordance. If this scan disagrees with the automated IG or if promyelocytes are noted, a manual differential will be performed. Immature Gran Absolute 0.10(H) 0.00 - 0.04 x10(3)/mc L [facility] Blood 05/14/2023 1:10 AM EDT 05/14/2023 1:24 AM EDT Narrative Resulting Agency Comment Spec In Lab Bonita TOBAR HEMATOLOGY ORDERABLE S [facility] [place] [address] * (ABNORMAL) Hemogram (05/14/2023 1:10 AM EDT) White Blood Cell 11.2(H) 4.0 - 9.5 x10(3)/mc L [facility] Red Blood Cell 2.19(L) 4.00 - 5.21 x10(6)/mc L [facility] Hemoglobin 7.2(L) 11.7 - 15.5 g/dL [facility] Hematocrit 20.3(L) 35.7 - 45.8 % [facility] Mean Cell Volume 92.7 82.6 - 94.4 fL [facility] Mean Cell Hemoglobin 32.9(H) 27.1 - 32.0 pg [facility] Mean Cell Hemoglobin Concentration 35.5(H) 31.7 - 35.0 g/dL [facility] Platelet 112(L) 145 - 357 x10(3)/mc L [facility] RDW Standard Deviation 41.4 37.0 - 46.0 fL [facility] RDW coefficient of variation 12.5 11.5 - 14.1 % [facility] Mean Platelet Volume 10.4 7.6 - 12.9 fL [facility] NRBC% auto 1.5 % [facility] NRBC Absolute 0.170(H) 0.000 - 0.000 x10(3)/mc L [facility] Blood 05/14/2023 1:10 AM EDT 05/14/2023 1:24 AM EDT Narrative Resulting Agency Comment Spec In Lab Bonita TOBAR HEMATOLOGY ORDERABLE S [facility] [place] [address] * (ABNORMAL) Comprehensive metabolic panel (non-fasting) (05/14/2023 1:10 AM EDT) Glucose 120 65 - 199 mg/dL [facility] Comment:Diabetes: >=200 mg/d L plus symptoms Blood Urea Nitrogen 98(H) 8 - 18 mg/dL [facility] Creatinine 4.80(H) 0.70 - 1.20 mg/dL [facility] Comment:result rechecked-ssc Sodium 132(L) 135 - 145 mmol/L [facility] Potassium 4.1 3.5 - 5.0 mmol/L [facility] Comment: Please note: ??Patients with WBC >100,000 may have falsely elevated Potassium levels. ??For accurate Potassium quantification in these patients send serum separator tube (gold top) for subsequent determinations. ??Contact the Clinical Chemistry Laboratory if there are any questions. Chloride 94(L) 98 - 107 mmol/L [facility] Carbon Dioxide 18(L) 22 - 31 mmol/L [facility] Anion Gap 20(H) 5 - 15 mmol/L [facility] Calcium 8.5 8.5 - 10.5 mg/dL [facility] Protein, Total 5.8(L) 6.1 - 8.0 g/dL [facility] Albumin 3.6 3.2 - 5.2 g/dL [facility] Aspartate Aminotransferase 319(H) 0 - 30 unit/L [facility] Alanine Aminotransferase 437(H) 0 - 30 unit/L [facility] Alkaline Phosphatase 86 35 - 105 unit/L [facility] Bilirubin, Total 0.4 0.2 - 1.3 mg/dL [facility] Est Glomerular Filtration Rate 9(L) >=60 mL/min/1. 73 m?? [facility] [...] MD CHEMISTRY ORDERABLE S Performing Organization Address [facility] [place]/[facility] Co de Phone Number [facility] [place] [address] * APTT (05/13/2023 10:15 AM EDT) Partial Thromboplastin Time 27 25 - 37 sec [facility] Comment: The PTT is NOT appropriate for heparin monitoring. Use the Anti-Xa level for heparin monitoring (HEP UFH) or LMWH monitoring (HEP LMW). A PTT less than 37 seconds generally indicates adequate hemostasis. Blood 05/13/2023 10:1 5 AM EDT 05/13/2023 10:46 AM EDT Narrative Resulting Agency Comment Spec In Lab Alirio Hudson MD HEMATOLOGY ORDERABL ES Performing Organization Address [facility] Co de Phone Number [facility] [place] [address] * (ABNORMAL) Prothrombin Time (05/13/2023 10:15 AM EDT) Prothrombin Time 14.6(H) 9.4 - 12.5 sec [facility] International Normalization Ratio 1.3 [facility] Comment: An INR <2.0 indicates adequate [...] MD HEMATOLOGY ORDERABL ES Performing Organization Address [facility] [place]/[facility] Co de Phone Number [facility] [place] [address] * EKG 12 Lead (05/13/2023 9:22 AM EDT) Ventricular rate 92 BPM MUSE SYSTEM Atrial Rate 92 BPM MUSE SYSTEM P-R Interval 140 ms MUSE SYSTEM QRS Duration 104 ms MUSE SYSTEM Q-T Interval 384 ms MUSE SYSTEM QTC Calculated (Bezet) 474 ms MUSE SYSTEM Calculated P Ryder 33 degrees MUSE SYSTEM Calculated R Ryder 41 degrees MUSE SYSTEM Calculated T Ryder -35 degrees MUSE SYSTEM INTERPRETATION Sinus rhythm with frequent Premature ventricular complexes Septal infarct , age undetermined ST & T wave abnormality, consider lateral ischemia Abnormal ECG When compared with ECG of 12-MAY-2023 10:10, Premature ventricular complexes are now Present I personally reviewed the tracing and edited the fellows interpretation Confirmed by fellow MD Anitha, Carissa ([id number]) on 05/13/2023 3:25:30 PM Confirmed by Maxx Best ([id number]) on 05/13/2023 8:30:56 PM MUSE SYSTEM 05/13/2023 9:22 AM EDT 05/13/2023 8:30 PM EDT Alirio Hudson MD ECG ORDERABLES MUSE SYSTEM * (ABNORMAL) Differential, Automated (05/13/2023 1:15 AM EDT) Pathologist [facility] Neutrophil % 88.1 % [facility] Neutrophil Absolute 7.62(H) 1.70 - 6.10 x10(3)/mc L [facility] Lymph % 3.1 % [facility] Lymphocytes Abs 0.3(L) 0.9 - 3.2 x10(3)/mc L [facility] Monocyte % 7.9 % [facility] Monocyte Abs 0.7 0.3 - 0.9 x10(3)/mc L [facility] Eos % 0.0 % [facility] Eosinophils Abs 0.0 0.0 - 0.4 x10(3)/mc L [facility] Basophil % 0.1 % [facility] Baso Absolute 0.0 0.0 - 0.1 x10(3)/mc L [facility] Immature Gran % 0.80 % [facility] Comment: Immature granulocytes(IG's)percentage and absolute count will include metamyelocytes, myelocytes, and promyelocytes. Blood smears from CBCs yielding IG's will be scanned manually for concordance. If this scan disagrees with the automated IG or if promyelocytes are noted, a manual differential will be performed. Immature Gran Absolute 0.07(H) 0.00 - 0.04 x10(3)/mc L [facility] Blood 05/13/2023 1:15 AM EDT 05/13/2023 1:29 AM EDT Narrative Resulting Agency Comment Spec In Lab Lorri TOBAR HEMATOLOGY ORDERABLE S [facility] [place] [address] * (ABNORMAL) Hemogram (05/13/2023 1:15 AM EDT) White Blood Cell 8.6 4.0 - 9.5 x10(3)/[facility] Red Blood Cell 2.37(L) 4.00 - 5.21 x10(6)/[facility] Hemoglobin 7.8(L) 11.7 - 15.5 g/dL [facility] Hematocrit 22.2(L) 35.7 - 45.8 % [facility] Mean Cell Volume 93.7 82.6 - 94.4 fL [facility] Mean Cell Hemoglobin 32.9(H) 27.1 - 32.0 pg [facility] Mean Cell Hemoglobin Concentration 35.1(H) 31.7 - 35.0 g/dL [facility] Platelet 130(L) 145 - 357 x10(3)/mc L [facility] RDW Standard Deviation 41.7 37.0 - 46.0 fL [facility] RDW coefficient of variation 12.5 11.5 - 14.1 % [facility] Mean Platelet Volume 10.2 7.6 - 12.9 fL [facility] NRBC% auto 0.5 % [facility] NRBC Absolute 0.040(H) 0.000 - 0.000 x10(3)/ L [facility] Blood 05/13/2023 1:15 AM EDT 05/13/2023 1:29 AM EDT Narrative Resulting Agency Comment Spec In Lab Lorri TOBAR HEMATOLOGY ORDERABLE S Performing Organization Address City/[facility] [place]/ZIP Co de Phone Number [facility] [place] [address] * (ABNORMAL) Hepatic Function Panel (05/13/2023 1:15 AM EDT) Protein, Total 5.5(L) 6.1 - 8.0 g/dL [facility] Albumin 3.0(L) 3.2 - 5.2 g/dL [facility] Aspartate Aminotransferase 792(H) 0 - 30 unit/L [facility] Alanine Aminotransferase 903(H) 0 - 30 unit/L [facility] Alkaline Phosphatase 85 35 - 105 unit/L [facility] Bilirubin, Total 0.5 0.2 - 1.3 mg/dL [facility] Bilirubin, Direct 0.3 0.0 - 0.3 mg/dL [facility] Blood 05/13/2023 1:15 AM EDT 05/13/2023 1:29 AM EDT Narrative Resulting Agency Comment Spec In Lab Alirio Hudson MD CHEMISTRY ORDERABLE S Performing Organization Address [facility] [place]/[facility] Co de Phone Number [facility] [place] [address] * (ABNORMAL) Basic Metabolic Panel (non-fasting) (05/13/2023 1:15 AM EDT) Glucose 107 65 - 199 mg/dL [facility] Comment:Diabetes: >=200 mg/d L plus symptoms Blood Urea Nitrogen 82(H) 8 - 18 mg/dL [facility] Creatinine 3.15(H) 0.70 - 1.20 mg/dL [facility] Comment:result rechecked-OG Sodium 132(L) 135 - 145 mmol/L [facility] Potassium 3.8 3.5 - 5.0 mmol/L [facility] Comment: Please note: ??Patients with WBC >100,000 may have falsely elevated Potassium levels. ??For accurate Potassium quantification in these patients send serum separator tube (gold top) for subsequent determinations. ??Contact the Clinical Chemistry Laboratory if there are any questions. Chloride 95(L) 98 - 107 mmol/L [facility] Carbon Dioxide 20(L) 22 - 31 mmol/L [facility] Anion Gap 17(H) 5 - 15 mmol/L [facility] Calcium 8.3(L) 8.5 - 10.5 mg/dL [facility] Est Glomerular Filtration Rate 16(L) >=60 mL/min/1. 73 m?? [facility] [...] Lab Alirio Hudson MD CHEMISTRY ORDERABLE S [facility] [place] [address] * (ABNORMAL) BLOOD GAS 2 ARTERIAL (05/12/2023 3:57 PM EDT) pH, Arterial 7.39 7.35 - 7.45 [facility] PCO2, Arterial 33(L) 35 - 45 mmHg [facility] PO2, Arterial 101 85 - 104 mmHg [facility] Bicarbonate, Arterial 19.5(L) 20.0 - 26.0 mmol/L [facility] Base Excess, Arterial -5.5(L) -3.0 - 3.0 mmol/L [facility] Hgb Blood Gas 9.8(L) 11.7 - 15.5 g/dL [facility] Oxyhemoglobin, Arterial 95.2 94.0 - 97.0 % [facility] Carboxyhemoglob in, Arterial 0.2 % [facility] Comment: Nonsmokers: 0.5-1.5% COHB Smokers: Variable, but usually less than 10% Toxic: 20-30% COHB Lethal: Greater than 60% COHB Methemoglobin, Arterial 0.8 <=1.5 % [facility] Na Whole Blood 129(L) 135 - 145 mmol/L [facility] K Whole Blood 3.8 3.5 - 5.0 mmol/L [facility] Comment: Please note: Patients with WBC >100,000 may have falsely elevated Potassium levels. Contact the Clinical Chemistry Laboratory if there are any questions. ICa Whole Blood 1.05(L) 1.15 - 1.33 mmol/L [facility] Comment: Note: ??Total bilirubin higher than 20 mg/dL may lead to falsely low ionized calcium. CL Whole Blood 96(L) 98 - 107 mmol/L [facility] Gluc Whole Bld 178 65 - 199 mg/dL [facility] Comment:Diabetes: >=200 mg/d L plus symptoms. Lactate WB 1.5 0.5 - 2.2 mmol/L [facility] FIO2 Art 40 % [facility] PF Ratio Art 252 [facility] Blood 05/12/2023 3:57 PM EDT 05/12/2023 3:57 PM EDT Alirio Hudson MD POINT OF CARE TEST ORDERABLES Performing Organization Address City/State/[facility] Co de Phone Number [facility] [place] [address] * (ABNORMAL) Coox2 (05/12/2023 2:25 PM EDT) pO2, Coox 37 mmHg [facility] Hgb Blood Gas 9.5(L) 11.7 - 15.5 g/dL [facility] Oxyhemoglobin, Coox 59.9 % [facility] Carboxyhemoglo bin, Coox 0.3 % [facility] Comment: Nonsmokers: 0.5-1.5% COHB Smokers: Variable, but usually less than 10% Toxic: 20-30% COHB Lethal: Greater than 60% COHB Methemoglobin, Coox 0.7 <=1.5 % [facility] Source Coox Mixed Venous [facility] Blood 05/12/2023 2:25 PM EDT 05/12/2023 2:25 PM EDT Alirio Hudson MD POINT OF CARE TEST ORDERABLES [facility] [place] [address] * (ABNORMAL) BLOOD GAS 2 ARTERIAL (05/12/2023 2:23 PM EDT) pH, Arterial 7.37 7.35 - 7.45 [facility] PCO2, Arterial 36 35 - 45 mmHg [facility] PO2, Arterial 102 85 - 104 mmHg [facility] Bicarbonate, Arterial 20.4 20.0 - 26.0 mmol/L [facility] Base Excess, Arterial -4.8(L) -3.0 - 3.0 mmol/L [facility] Hgb Blood Gas 12.7 11.7 - 15.5 g/dL [facility] Oxyhemoglobin, Arterial 95.4 94.0 - 97.0 % [facility] Carboxyhemoglob in, Arterial 0.3 % [facility] Comment: Nonsmokers: 0.5-1.5% COHB Smokers: Variable, but usually less than 10% Toxic: 20-30% COHB Lethal: Greater than 60% COHB Methemoglobin, Arterial 0.7 <=1.5 % [facility] Na Whole Blood 129(L) 135 - 145 mmol/L [facility] K Whole Blood 3.7 3.5 - 5.0 mmol/L [facility] Comment: Please note: Patients with WBC >100,000 may have falsely elevated Potassium levels. Contact the Clinical Chemistry Laboratory if there are any questions. ICa Whole Blood 1.05(L) 1.15 - 1.33 mmol/L [facility] Comment: Note: ??Total bilirubin higher than 20 mg/dL may lead to falsely low ionized calcium. CL Whole Blood 95(L) 98 - 107 mmol/L [facility] Gluc Whole Bld 168 65 - 199 mg/dL [facility] Comment:Diabetes: >=200 mg/d L plus symptoms. Lactate WB 1.8 0.5 - 2.2 mmol/L [facility] FIO2 Art 40 % [facility] PF Ratio Art 255 [facility] Blood 05/12/2023 2:23 PM EDT 05/12/2023 2:23 PM EDT Alirio Hudson MD POINT OF CARE TEST ORDERABLES [facility] [place] [address] * (ABNORMAL) Troponin (05/12/2023 2:05 PM EDT) Troponin-T, High Sensitivity 1,022(H) <=14 ng/L [facility] Comment: This patient's troponin T concentration [...] can be found in the [facility] Test Catalog Troponin - [facility] Test Catalog Reference: Fourth Daphne Definition of Myocardial Infarction. Journal of the [place] 2018;72:7074-0083 Blood 05/12/2023 2:05 PM EDT 05/12/2023 2:14 PM EDT Narrative Resulting Agency Comment Spec In Lab Alirio Hudson MD CHEMISTRY ORDERABLE S Performing Organization Address [facility] [place]/ZIP Co de Phone Number [facility] [place] [address] * (ABNORMAL) Hemoglobin (05/12/2023 2:05 PM EDT) Hemoglobin 8.5(L) 11.7 - 15.5 g/dL [facility] Blood 05/12/2023 2:05 PM EDT 05/12/2023 2:14 PM EDT Narrative Resulting Agency Comment Spec In Lab Alirio Hudson MD HEMATOLOGY ORDERABL ES Performing Organization Address [facility] [place]/[facility] Co de Phone Number [facility] [place] [address] * Potassium (05/12/2023 2:05 PM EDT) Potassium 3.9 3.5 - 5.0 mmol/L [facility] MD CHEMISTRY ORDERABLE S Performing Organization Address [facility] [place]/[facility] Co de Phone Number [facility] [place] [address] * (ABNORMAL) BLOOD GAS 2 ARTERIAL (05/12/2023 11:05 AM EDT) pH, Arterial 7.34(L) 7.35 - 7.45 [facility] PCO2, Arterial 42 35 - 45 mmHg [facility] PO2, Arterial 73(L) 85 - 104 mmHg [facility] Bicarbonate, Arterial 22.1 20.0 - 26.0 mmol/L [facility] Base Excess, Arterial -3.6(L) -3.0 - 3.0 mmol/L [facility] Hgb Blood Gas 9.3(L) 11.7 - 15.5 g/dL [facility] Oxyhemoglobin, Arterial 89.3(L) 94.0 - 97.0 % [facility] Carboxyhemoglob in, Arterial 0.2 % [facility] Comment: Nonsmokers: 0.5-1.5% COHB Smokers: Variable, but usually less than 10% Toxic: 20-30% COHB Lethal: Greater than 60% COHB Methemoglobin, Arterial 0.9 <=1.5 % [facility] Na Whole Blood 131(L) 135 - 145 mmol/L [facility] K Whole Blood 3.8 3.5 - 5.0 mmol/L [facility] Comment: Please note: Patients with WBC >100,000 may have falsely elevated Potassium levels. Contact the Clinical Chemistry Laboratory if there are any questions. ICa Whole Blood 1.04(L) 1.15 - 1.33 mmol/L [facility] Comment: Note: ??Total bilirubin higher than 20 mg/dL may lead to falsely low ionized calcium. CL Whole Blood 96(L) 98 - 107 mmol/L [facility] Gluc Whole Bld 152 65 - 199 mg/dL [facility] Comment:Diabetes: >=200 mg/d L plus symptoms. Lactate WB 2.8(H) 0.5 - 2.2 mmol/L [facility] FIO2 Art 40 % [facility] PF Ratio Art 182 [facility] Blood 05/12/2023 11:0 5 AM EDT 05/12/2023 11:05 AM EDT Alirio Hudson MD POINT OF CARE TEST ORDERABLES [facility] [address] [place] [address] * (ABNORMAL) BLOOD GAS 2 ARTERIAL (05/12/2023 10:14 AM EDT) pH, Arterial 7.18(Criti gabrielle) 7.35 - 7.45 [facility] Comment:Noted by hearing instrument specialist. PCO2, Arterial 45 35 - 45 mmHg [facility] PO2, Arterial 186(H) 85 - 104 mmHg [facility] Bicarbonate, Arterial 16.2(L) 20.0 - 26.0 mmol/L [facility] Base Excess, Arterial -12.2(L) -3.0 - 3.0 mmol/L [facility] Hgb Blood Gas 10.0(L) 11.7 - 15.5 g/dL [facility] Oxyhemoglobin, Arterial 97.0 94.0 - 97.0 % [facility] Carboxyhemoglob in, Arterial 0.2 % [facility] Comment: Nonsmokers: 0.5-1.5% COHB Smokers: Variable, but usually less than 10% Toxic: 20-30% COHB Lethal: Greater than 60% COHB Methemoglobin, Arterial 0.9 <=1.5 % [facility] Na Whole Blood 129(L) 135 - 145 mmol/L [facility] K Whole Blood 3.6 3.5 - 5.0 mmol/L [facility] Comment: Please note: Patients with WBC >100,000 may have falsely elevated Potassium levels. Contact the Clinical Chemistry Laboratory if there are any questions. ICa Whole Blood 1.10(L) 1.15 - 1.33 mmol/L [facility] Comment: Note: ??Total bilirubin higher than 20 mg/dL may lead to falsely low ionized calcium. CL Whole Blood 97(L) 98 - 107 mmol/L [facility] Gluc Whole Bld 161 65 - 199 mg/dL [facility] Comment:Diabetes: >=200 mg/d L plus symptoms. Lactate WB 3.3(H) 0.5 - 2.2 mmol/L [facility] FIO2 Art 100 % [facility] PF Ratio Art 186 [facility] Blood 05/12/2023 10:1 4 AM EDT 05/12/2023 10:14 AM EDT Alirio Hudson MD POINT OF CARE TEST ORDERABLES [facility] [place] [address] * EKG 12 Lead (05/12/2023 10:10 AM EDT) Ventricular rate 116 BPM MUSE SYSTEM Atrial Rate 116 BPM MUSE SYSTEM P-R Interval 158 ms MUSE SYSTEM QRS Duration 114 ms MUSE SYSTEM Q-T Interval 348 ms MUSE SYSTEM QTC Calculated (Bezet) 483 ms MUSE SYSTEM Calculated P Ryder 37 degrees MUSE SYSTEM Calculated R Ryder 31 degrees MUSE SYSTEM Calculated T Ryder -138 degrees MUSE SYSTEM INTERPRETATION Sinus tachycardia with intermittent aberrant ventricular conduction Possible Left atrial enlargement Incomplete left bundle block Left ventricular hypertrophy with repolarization abnormality ( Sokolow-Orozco , [place] product ) ST & T wave abnormality in Inferolateral leads Abnormal ECG When compared with ECG of 10-MAY-2023 13:16, ST & T wave abnormality is more pronounced in inferolateral leads I personally reviewed the tracing and edited the fellows interpretation Confirmed by fellow MD Anuja, Jim ([id number]) on 05/12/2023 1:04:20 PM Confirmed by MD Mono, Eleni ([id number]) on 05/12/2023 9:28:34 PM MUSE SYSTEM 05/12/2023 [...] signed by: Chyna Johnson MD, [facility] ??([phone]), at 05/12/2023 10:08 AM Narrative 05/12/2023 10:08 AM EDT EXAMINATION: XR CHEST ONE VIEW CLINICAL HISTORY: Post TAVR TECHNIQUE: 1 view of the chest COMPARISON: Chest radiograph from earlier today FINDINGS: Interval placement of endotracheal tube with tip terminating 2 cm above the shira. Interval placement of enteric tube projecting along the expected course of the esophagus and outside the qxtmu-qe-wehb. Interval retraction of right IJ approach pulmonary [...] expected course ofthe esophagus and outside the rgcff-vf-wiyj. Interval retraction of right IJ approach pulmonary [...] first. Electronically signed by: Chyna Johnson MD, [facility]([phone]), at 05/12/2023 10:08 AM Alirio Hudson MD [...] 1955 ? Height: 154 cm ? Account: [id number] Age: 67 yrs ? Weight: 75 kg Gender: Female ?BSA: 1.7 m2 Ordering Physician: RADHA HOLLINS Referring Physician: RADHA HOLLINS Performed By: Dilma Bee RDCS Reason For Study: Guidance for TAVR procedure Exam Location: [facility]. Interpretation Summary PRE TAVR: There [...] mL/m2. POST TAVR: Normal function of the yfhhf-ms-qyuvv prosthesis. See below for hemodynamic parameters. Slight improvement in left and right ventricular systolic function. LVEF now 20-25%. No pericardial effusion. See report for additional findings. Procedure Limited - 93063. Doppler - 79319. Color Doppler - 01311. Left Ventricle Left ventricle is of normal [...] Date: 307:33 AMBP: 96/63 mmHg Patient Location: [address] : 1955 Height: 154 cm Account: [id number] Age: 67 yrs Weight: 75 kg Gender: Female BSA: 1.7 m2 Ordering Physician: RADHA HOLLINS Referring Physician: RADHA HOLLINS Performed By: Dilma Bee RDCS Reason For Study: Guidance for TAVR procedure Exam Location: [facility]. Interpretation Summary PRE TAVR: There [...] 28mL/m2. POST TAVR: Normal function of the ufbhw-ij-nyjuv prosthesis. See belowfor hemodynamic parameters. Slight improvement in left and right ventricularsystolic function. LVEF now 20-25%. No pericardial effusion. See report for additional findings. Procedure Limited - 57278. Doppler - 42826. Color Doppler - 29961. Left Ventricle Left ventricle is of normal [...] Modality Other Narrative 05/12/2023 2:37 PM EDT ?[facility] ? Cardiac Catheterization/Intervention Report ? Patient Name: Kirstie, Purnima M. ? Procedure Date: 05/12/2023 ? A #: [id number] ? Primary Physician: Zachary, Antelmo De La Fuente ? Case #: [id number] ? File Name: [id number] ? Catheterization Order Number: [id number] ? [facility] ? Final Report [place], [place] ? Patient Name: ? Purnima M. Kirstie ? ID#: ?[id number] ? : ?1955 ? Procedure Date: ? [...] Device Deployment ?* Temporary Pacemaker Insertion In Telecommunication Systems Designer ?* Endotracheal Intubation By Non-Cath Physician [...] guide. ??A premounted 4.00 x 30 mm [place] (MINNA) was ? deployed with a maximum [...] calculated STS risk score was 30.1%. A tjuue-ug-kcreh ?procedure was performed on the pre-existing bioprosthetic stented ?prosthesis. The priority of the triib-xt-zcnvx procedure was Elective. ?The procedure was performed [...] Lai 3 Ultra RESILIA 23 mm THV (s/q=[id number]) transcatheter ?valve was inserted using standard technique. [...] was it given in the ?cardiac cath technologist. ?Recommended anti-platelet/anti-thrombotic regimen: ?Continue aspirin 81 [...] regimen. ? Comments: ?Successful right transfemoral TAVR Xzseo-cn-Onsyg with a 23 mm Lai 3 ?THV. [...] site angiography, ?temporary pacemaker in cardiac cath technologist, intubation-non cath physician, vascular ?closure device, transthoracic echo ??and TAVR. Dr. Alirio Hudson M.D. ?performed the left heart catheterization, access site angiography, ?temporary pacemaker in cardiac cath technologist, vascular closure device, transthoracic ?echo , TAVR and CPR during cath. Dr. Lynda Mcgowan M.D. performed the ABG, ?anesthesia and intubation-non cath physician. ? Antelmo Sharma M.D. ? Electronically Signed by: Antelmo Sharma M.D. ? Report Finalized: 05/12/2023 ??14:31 ? Report Last Ammended: 07/01/2023 ??11:30 ? Procedure Note Antelmo Sharma MD - 07/01/2023 [facility] Cardiac Catheterization/Intervention Report Patient Name: Purnima Thacker Procedure Date: 05/12/2023 A #: [id number] Primary Physician: Antelmo Sharma Case #: [id number] File Name: [id number] Catheterization Order Number: [id number] [facility] FinalReport [place], [place] Patient Name: Purnima Thacker ID#:[id number] :1955 Procedure Date: May 12, 2023 Case #: [id number] Room: 6 Case Physicians: Antelmo Sharma M.D. Start: 08:03 Alirio Hudson M.D. Admission:05/08/2023 Lynda Mcgowan M.D. Discharge:05/22/2023 Fellow: Rebekah Tejeda M.D. Referring Physician: Mario Alberto Chin M.D. Procedures: * Coronary Angiography * Left Heart Catheterization * Coronary Stent Insertion * Transcatheter Aortic Valve Replacement * Vascular Closure Device Deployment * Temporary Pacemaker Insertion In Telecommunication Systems Designer * Endotracheal Intubation By Non-Cath Physician [...] A premounted 4.00 x 30 mm Nils [place] (MINNA) was deployed with a maximum inflation [...] calculated STS risk score was 30.1%. A denoz-lc-fqyuk procedure was performed on the pre-existing bioprosthetic stented prosthesis. The priority of the [id number] procedure wasElective. The procedure was performed under Moderate sedation performed byLynda Mcgowan M.D. (see anesthesia report for additional details). Alirio Hudson M.D. participated in the case (see Cardiac Surgery reportfor additional details). The TAVR sheath was a 14 Fr Corona eSheath Introducer and theaccess site was femoral. Rapid ventricular pacing was performed. An Corona Lai 3 Ultra RESILIA 23 mm THV (s/l=[id number])transcatheter valve was inserted using standard technique. The [...] nor was it given inthe cardiac cath technologist. Recommended anti-platelet/anti-thrombotic regimen: Continue aspirin 81 [...] this regimen. Comments: Successful right transfemoral TAVR [id number] with a 23 mmSapien 3 THV. We [...] site angiography, temporary pacemaker in cardiac cath technologist, intubation-non cath physician,vascular closure device, transthoracic echo and TAVR. Dr. Alirio Hudson M.D. performed the left heart catheterization, access site angiography, temporary pacemaker in cardiac cath technologist, vascular closure device,transthoracic echo , TAVR [...] pH, POC 7.20(Crit ical) 7.35 - 7.45 [facility] Comment:Critical value OK, C C Lab. pCO2, POC 42 35 - 45 mmHg [facility] pO2, POC 260(H) 85 - 104 mmHg [facility] Base Excess, POC -11.0(L) -3.0 - 3.0 mmol/L [facility] Bicarbonate, POC 16.7(L) 20.0 - 26.0 mmol/L [facility] Sodium, POC 129(L) 135 - 145 mmol/L [facility] POC Potassium 3.8 3.5 - 5.0 mmol/L [facility] Ionized Calcium, POC 1.12(L) 1.15 - 1.33 mmol/L [facility] POC Hematocrit 23.0(L) 34.0 - 45.0 % [facility] POC Calc Hgb 7.8(L) 11.2 - 15.7 g/dL [facility] Comment:The calculation of h emoglobin from hematocrit assumes a normal MCHC. POC Bgas Loc CC Lab [facility] Blood 05/12/2023 8:50 AM EDT 05/13/2023 12:00 PM EDT Alirio Hudson MD CHEMISTRY ORDERABLE S [facility] [place] [address] * (ABNORMAL) Point of Care Blood Gas Historical (05/12/2023 8:10 AM EDT) pH, POC 7.27(Crit ical) 7.35 - 7.45 [facility] Comment:Critical value OK C C Lab. pCO2, POC 37 35 - 45 mmHg [facility] pO2, POC 29(Critic al) 85 - 104 mmHg [facility] Comment:Critical value OK C C Lab. Base Excess, POC -10.0(L) -3.0 - 3.0 mmol/L [facility] Bicarbonate, POC 16.7(L) 20.0 - 26.0 mmol/L [facility] Sodium, POC 123(L) 135 - 145 mmol/L [facility] POC Potassium 4.0 3.5 - 5.0 mmol/L [facility] Ionized Calcium, POC 1.12(L) 1.15 - 1.33 mmol/L [facility] POC Hematocrit 27.0(L) 34.0 - 45.0 % [facility] POC Calc Hgb 9.2(L) 11.2 - 15.7 g/dL [facility] Comment:The calculation of h emoglobin from hematocrit assumes a normal MCHC. POC Bgas Loc CC Lab [facility] Blood 05/12/2023 8:10 AM EDT 05/13/2023 12:00 PM EDT Alirio Hudson MD CHEMISTRY ORDERABLE S Performing Organization Address City/[facility]/ZIP Co de Phone Number [facility] [place] [address] * (ABNORMAL) Lactate, whole blood, [place] [place] (05/12/2023 7:00 AM EDT) Lactate WB 2.4(H) 0.5 - 2.2 mmol/L [facility] Blood 05/12/2023 7:00 AM EDT 05/12/2023 7:09 AM EDT Narrative Resulting Agency Comment Spec In Lab Radha Hollins MD CHEMISTRY ORDERABL ES Performing Organization Address City/[facility]/ZIP Co de Phone Number [facility] [place] [address] * (ABNORMAL) Comprehensive metabolic panel (non-fasting) (05/12/2023 6:00 AM EDT) Glucose 167 65 - 199 mg/dL [facility] Comment:Diabetes: >=200 mg/d L plus symptoms Blood Urea Nitrogen 67(H) 8 - 18 mg/dL [facility] Creatinine 2.01(H) 0.70 - 1.20 mg/dL [facility] Sodium 131(L) 135 - 145 mmol/L [facility] Potassium 4.3 3.5 - 5.0 mmol/L [facility] Comment: Please note: ??Patients with WBC >100,000 may have falsely elevated Potassium levels. ??For accurate Potassium quantification in these patients send serum separator tube (gold top) for subsequent determinations. ??Contact the Clinical Chemistry Laboratory if there are any questions. Chloride 97(L) 98 - 107 mmol/L [facility] Carbon Dioxide 14(L) 22 - 31 mmol/L [facility] Anion Gap 20(H) 5 - 15 mmol/L [facility] Calcium 8.6 8.5 - 10.5 mg/dL [facility] Protein, Total 6.3 6.1 - 8.0 g/dL [facility] Albumin 3.5 3.2 - 5.2 g/dL [facility] Aspartate Aminotransferase 1,435(H) 0 - 30 unit/L [facility] Alanine Aminotransferase 1,174(H) 0 - 30 unit/L [facility] Alkaline Phosphatase 100 35 - 105 unit/L [facility] Bilirubin, Total 0.9 0.2 - 1.3 mg/dL [facility] Est Glomerular Filtration Rate 27(L) >=60 mL/min/1. 73 m?? [facility] [...] Lab Radha Hollins MD CHEMISTRY ORDERABL ES [facility] [place] [address] * (ABNORMAL) Coox2 (05/12/2023 5:08 AM EDT) pO2, Coox 24 mmHg [facility] Hgb Blood Gas 10.4(L) 11.7 - 15.5 g/dL [facility] Oxyhemoglobin, Coox 30.7 % [facility] Carboxyhemoglo bin, Coox 0.3 % [facility] Comment: Nonsmokers: 0.5-1.5% COHB Smokers: Variable, but usually less than 10% Toxic: 20-30% COHB Lethal: Greater than 60% COHB Methemoglobin, Coox 0.8 <=1.5 % [facility] Source Coox Mixed Venous [facility] Blood 05/12/2023 5:08 AM EDT 05/12/2023 5:08 AM EDT Radha Hollins MD POINT OF CARE TEST ORDERABLES Performing Organization Address City/[facility] Co de Phone Number [facility] [place] [address] * (ABNORMAL) Coox2 (05/12/2023 3:21 AM EDT) pO2, Coox 25 mmHg [facility] Hgb Blood Gas 10.8(L) 11.7 - 15.5 g/dL [facility] Oxyhemoglobin, Coox 32.7 % [facility] Carboxyhemoglo bin, Coox 0.3 % [facility] Comment: Nonsmokers: 0.5-1.5% COHB Smokers: Variable, but usually less than 10% Toxic: 20-30% COHB Lethal: Greater than 60% COHB Methemoglobin, Coox 0.7 <=1.5 % [facility] Source Coox Mixed Venous [facility] Blood 05/12/2023 3:21 AM EDT 05/12/2023 3:21 AM EDT Radha Hollins MD POINT OF CARE TEST ORDERABLES Performing Organization Address City/State/[facility] Co de Phone Number [facility] [place] [address] * (ABNORMAL) BLOOD GAS 2 ARTERIAL (05/12/2023 3:18 AM EDT) pH, Arterial 7.34(L) 7.35 - 7.45 [facility] PCO2, Arterial 30(L) 35 - 45 mmHg [facility] PO2, Arterial 72(L) 85 - 104 mmHg [facility] Bicarbonate, Arterial 16.0(L) 20.0 - 26.0 mmol/L [facility] Base Excess, Arterial -9.8(L) -3.0 - 3.0 mmol/L [facility] Hgb Blood Gas 11.0(L) 11.7 - 15.5 g/dL [facility] Oxyhemoglobin, Arterial 89.8(L) 94.0 - 97.0 % [facility] Carboxyhemoglob in, Arterial 0.3 % [facility] Comment: Nonsmokers: 0.5-1.5% COHB Smokers: Variable, but usually less than 10% Toxic: 20-30% COHB Lethal: Greater than 60% COHB Methemoglobin, Arterial 0.7 <=1.5 % [facility] Na Whole Blood 131(L) 135 - 145 mmol/L [facility] K Whole Blood 4.2 3.5 - 5.0 mmol/L [facility] Comment: Please note: Patients with WBC >100,000 may have falsely elevated Potassium levels. Contact the Clinical Chemistry Laboratory if there are any questions. ICa Whole Blood 1.12(L) 1.15 - 1.33 mmol/L [facility] Comment: Note: ??Total bilirubin higher than 20 mg/dL may lead to falsely low ionized calcium. CL Whole Blood 100 98 - 107 mmol/L [facility] Gluc Whole Bld 160 65 - 199 mg/dL [facility] Comment:Diabetes: >=200 mg/d L plus symptoms. Lactate WB 2.7(H) 0.5 - 2.2 mmol/L [facility] Flow Art 5.0 LPM [facility] Blood 05/12/2023 3:18 AM EDT 05/12/2023 3:18 AM EDT Radha Hollins MD POINT OF CARE TEST ORDERABLES [facility] [place] [address] * (ABNORMAL) Coox2 (05/12/2023 1:14 AM EDT) pO2, Coox 28 mmHg [facility] Hgb Blood Gas 10.9(L) 11.7 - 15.5 g/dL [facility] Oxyhemoglobin, Coox 37.3 % [facility] Carboxyhemoglo bin, Coox 0.3 % [facility] Comment: Nonsmokers: 0.5-1.5% COHB Smokers: Variable, but usually less than 10% Toxic: 20-30% COHB Lethal: Greater than 60% COHB Methemoglobin, Coox 0.5 <=1.5 % [facility] Source Coox Mixed Venous [facility] Blood 05/12/2023 1:14 AM EDT 05/12/2023 1:14 AM EDT Radha Hollins MD POINT OF CARE TEST ORDERABLES Performing Organization Address City/State/[facility] Co de Phone Number [facility] [place] [address] * (ABNORMAL) BLOOD GAS 2 ARTERIAL (05/12/2023 1:06 AM EDT) pH, Arterial 7.34(L) 7.35 - 7.45 [facility] PCO2, Arterial 30(L) 35 - 45 mmHg [facility] PO2, Arterial 81(L) 85 - 104 mmHg [facility] Bicarbonate, Arterial 15.7(L) 20.0 - 26.0 mmol/L [facility] Base Excess, Arterial -10.1(L) -3.0 - 3.0 mmol/L [facility] Hgb Blood Gas 11.0(L) 11.7 - 15.5 g/dL [facility] Oxyhemoglobin, Arterial 92.3(L) 94.0 - 97.0 % [facility] Carboxyhemoglob in, Arterial 0.2 % [facility] Comment: Nonsmokers: 0.5-1.5% COHB Smokers: Variable, but usually less than 10% Toxic: 20-30% COHB Lethal: Greater than 60% COHB Methemoglobin, Arterial 0.6 <=1.5 % [facility] Na Whole Blood 131(L) 135 - 145 mmol/L [facility] K Whole Blood 4.2 3.5 - 5.0 mmol/L [facility] Comment: Please note: Patients with WBC >100,000 may have falsely elevated Potassium levels. Contact the Clinical Chemistry Laboratory if there are any questions. ICa Whole Blood 1.13(L) 1.15 - 1.33 mmol/L [facility] Comment: Note: ??Total bilirubin higher than 20 mg/dL may lead to falsely low ionized calcium. CL Whole Blood 99 98 - 107 mmol/L [facility] Gluc Whole Bld 132 65 - 199 mg/dL [facility] Comment:Diabetes: >=200 mg/d L plus symptoms. Lactate WB 2.7(H) 0.5 - 2.2 mmol/L [facility] Flow Art 5.0 LPM [facility] Blood 05/12/2023 1:06 AM EDT 05/12/2023 1:06 AM EDT Radha Hollins MD POINT OF CARE TEST ORDERABLES [facility] [place] [address] * (ABNORMAL) Differential, Automated (05/12/2023 1:05 AM EDT) Neutrophil % 83.3 % [facility] Neutrophil Absolute 7.49(H) 1.70 - 6.10 x10(3)/mc L [facility] Lymph % 7.1 % [facility] Lymphocytes Abs 0.6(L) 0.9 - 3.2 x10(3)/mc L [facility] Monocyte % 8.9 % [facility] Monocyte Abs 0.8 0.3 - 0.9 x10(3)/mc L [facility] Eos % 0.0 % [facility] Eosinophils Abs 0.0 0.0 - 0.4 x10(3)/mc L [facility] Basophil % 0.1 % [facility] Baso Absolute 0.0 0.0 - 0.1 x10(3)/mc L [facility] Immature Gran % 0.60 % [facility] Comment: Immature granulocytes(IG's)percentage and absolute count will include metamyelocytes, myelocytes, and promyelocytes. Blood smears from CBCs yielding IG's will be scanned manually for concordance. If this scan disagrees with the automated IG or if promyelocytes are noted, a manual differential will be performed. Immature Gran Absolute 0.05(H) 0.00 - 0.04 x10(3)/mc L [facility] Blood 05/12/2023 1:05 AM EDT 05/12/2023 1:15 AM EDT Narrative Resulting Agency Comment Spec In Lab Gianni Fletcher MD HEMATOLOGY ORDERABLE S [facility] [place] [address] * (ABNORMAL) Hemogram (05/12/2023 1:05 AM EDT) White Blood Cell 9.0 4.0 - 9.5 x10(3)/mc L [facility] Red Blood Cell 3.01(L) 4.00 - 5.21 x10(6)/mc L [facility] Hemoglobin 9.8(L) 11.7 - 15.5 g/dL [facility] Hematocrit 28.7(L) 35.7 - 45.8 % [facility] Mean Cell Volume 95.3(H) 82.6 - 94.4 fL [facility] Mean Cell Hemoglobin 32.6(H) 27.1 - 32.0 pg [facility] Mean Cell Hemoglobin Concentration 34.1 31.7 - 35.0 g/dL [facility] Platelet 186 145 - 357 x10(3)/mc L [facility] RDW Standard Deviation 43.7 37.0 - 46.0 fL [facility] RDW coefficient of variation 12.7 11.5 - 14.1 % [facility] Mean Platelet Volume 10.3 7.6 - 12.9 fL [facility] NRBC% auto 0.0 % [facility] NRBC Absolute 0.000 0.000 - 0.000 x10(3)/mc L [facility] Blood 05/12/2023 1:05 AM EDT 05/12/2023 1:15 AM EDT Narrative Resulting Agency Comment Spec In Lab Gianni Fletcher MD HEMATOLOGY ORDERABLE S [facility] [address] [place] [address] * (ABNORMAL) Comprehensive metabolic panel (non-fasting) (05/12/2023 1:05 AM EDT) Glucose 141 65 - 199 mg/dL [facility] Comment:Diabetes: >=200 mg/d L plus symptoms Blood Urea Nitrogen 63(H) 8 - 18 mg/dL [facility] Creatinine 1.86(H) 0.70 - 1.20 mg/dL [facility] Sodium 131(L) 135 - 145 mmol/L [facility] Potassium 4.4 3.5 - 5.0 mmol/L [facility] Comment: Please note: ??Patients with WBC >100,000 may have falsely elevated Potassium levels. ??For accurate Potassium quantification in these patients send serum separator tube (gold top) for subsequent determinations. ??Contact the Clinical Chemistry Laboratory if there are any questions. Chloride 96(L) 98 - 107 mmol/L [facility] Carbon Dioxide 14(L) 22 - 31 mmol/L [facility] Anion Gap 21(H) 5 - 15 mmol/L [facility] Calcium 9.0 8.5 - 10.5 mg/dL [facility] Protein, Total 6.6 6.1 - 8.0 g/dL [facility] Albumin 3.9 3.2 - 5.2 g/dL [facility] Aspartate Aminotransferase 1,227(H) 0 - 30 unit/L [facility] Alanine Aminotransferase 1,097(H) 0 - 30 unit/L [facility] Alkaline Phosphatase 108(H) 35 - 105 unit/L [facility] Bilirubin, Total 1.0 0.2 - 1.3 mg/dL [facility] Est Glomerular Filtration Rate 29(L) >=60 mL/min/1. 73 m?? [facility] Lab Radha Hollins MD CHEMISTRY ORDERABL ES [facility] [place] [address] * XR Chest One View (05/12/2023 1:00 [...] your imaging first. ? Electronically signed by: Wlil Rowe MD, [facility] ([phone]), at 05/12/2023 3:16 AM Narrative 05/12/2023 3:16 [...] imaging first. Electronically signed by: Will Rowe MD[facility]([phone]), at 05/12/2023 3:16 AM Radha Hollins MD IMG DX ORDERABLES * (ABNORMAL) Coox2 (05/12/2023 12:30 AM EDT) pO2, Coox 22 mmHg [facility] Hgb Blood Gas 10.9(L) 11.7 - 15.5 g/dL [facility] Oxyhemoglobin, Coox 25.1 % [facility] Carboxyhemoglo bin, Coox 0.3 % [facility] Comment: Nonsmokers: 0.5-1.5% COHB Smokers: Variable, but usually less than 10% Toxic: 20-30% COHB Lethal: Greater than 60% COHB Methemoglobin, Coox 1.4 <=1.5 % [facility] Source Coox Mixed Venous [facility] Blood 05/12/2023 12:3 0 AM EDT 05/12/2023 12:30 AM EDT Radha Hollins MD POINT OF CARE TEST ORDERABLES [facility] [place] [address] * XR Chest One View (05/11/2023 11:45 [...] ? Electronically signed by: Will Rowe MD, [facility] ([phone]), at 05/11/2023 11:57 PM Narrative 05/11/2023 11:57 [...] first. Electronically signed by: Will Rowe MD, [facility]([phone]), at 05/11/2023 11:57 PM Radha Hollins MD IMG DX ORDERABLES * (ABNORMAL) Lactate, whole blood, [place] lab [place] [place] (05/11/2023 7:40 PM EDT) Lactate WB 4.8(Critic al) 0.5 - 2.2 mmol/L [facility] Comment:Called by: IMM, Read back by: Magdalena Baires, Date/Time:05/11/23 19:54. Blood 05/11/2023 7:40 PM EDT 05/11/2023 7:49 PM EDT Narrative Resulting Agency Comment Spec In Lab Radha Hollins MD CHEMISTRY ORDERABL ES Performing Organization Address City/[facility]/ZIP Co de Phone Number [facility] [place] [address] * Urine culture (05/11/2023 7:22 PM EDT) Urine Culture 50,000-99,000 cfu/ml Normal mucosal herman Susceptibilit y testing not routinely performed for Coagulase Negative Staphylococcu s species and other Gram Positive organisms from urine. [facility] Clean Catch Urine 05/11/2023 7:22 PM EDT 05/11/2023 8:50 PM EDT Narrative Resulting Agency Comment Spec In Lab Brody Kaplan APRN MICROBIOLOGY - GENE RAL ORDERABLES Performing Organization Address City/[facility]/ZIP Co de Phone Number [facility] [place] [address] * (ABNORMAL) Urinalysis Microscopic Exam (05/11/2023 7:22 PM EDT) RBC, Urine 2 0 - 4 /HPF [facility] WBC, Urine >100(H) 0 - 5 /HPF [facility] Bacteria, Urine Occasional (A) None /HPF [facility] Squamous Epithelial Cells Raw Data, Urine 5(H) <=4 /HPF [facility] Hyaline Casts, Urine 3(H) 0 - 2 /LPF [facility] Clean Catch Urine 05/11/2023 7:22 PM EDT 05/11/2023 7:31 PM EDT Narrative Resulting Agency Comment Spec In Lab Brody Kaplan COMPOSING ROOM SUPERVISOR URINE ORDERABLES [facility] [place] [address] * (ABNORMAL) Urinalysis with reflex Culture (05/11/2023 7:22 PM EDT) Glucose, Urine Dipstick Negative Negative mg/dL [facility] Protein, Urine Dipstick Trace(A) Negative mg/dL [facility] Bilirubin, Urine Dipstick Negative Negative mg/dL [facility] Comment: Clinical correlation required for positive Urine Bilirubin results as false positive may occur with some drugs and drug related products. If a false positive is suspected a serum total bilirubin should be considered if clinically indicated. Urobilinogen, Urine Dipstick Normal Normal mg/dL [facility] pH, Urn (dipstick) 5.0 5.0 - 8.0 [facility] Blood, Urine Dipstick Trace(A) Negative mg/dL [facility] Ketone, Urine Dipstick Negative Negative mg/dL [facility] Nitrite, Urine Dipstick Negative Negative [facility] Leukocytes, Urine Dipstick Moderate(A) Negative mcL [facility] Appearance, Urine Dipstick Cloudy(A) Clear [facility] Specific [place] Urine Automated >=1.030(A) 1.005 - 1.030 [facility] Color, Urine Dipstick Yellow Yellow [facility] Reflex to Culture Yes [facility] Clean Catch Urine 05/11/2023 7:22 PM EDT 05/11/2023 7:31 PM EDT Narrative Resulting Agency Comment Spec In Lab Brody Kaplan COMPOSING ROOM SUPERVISOR URINE ORDERABLES [facility] [place] [address] * (ABNORMAL) pro-Brain Natriuretic Peptide (05/11/2023 7:11 PM EDT) NT-proBNP >35,000(H) <=124 pg/mL [facility] Blood 05/11/2023 7:11 PM EDT 05/11/2023 7:26 PM EDT Narrative Resulting Agency Comment Spec In Lab Radha Hollins MD CHEMISTRY ORDERABL ES Performing Organization Address City/[facility]/ZIP Co de Phone Number [facility] [place] [address] * (ABNORMAL) Lactate, whole blood, [place] lab [place] [place] (05/11/2023 2:47 PM EDT) Lactate WB 2.9(H) 0.5 - 2.2 mmol/L [facility] Blood 05/11/2023 2:47 PM EDT 05/11/2023 2:53 PM EDT Narrative Resulting Agency Comment Spec In Lab Juan Luis Gonzalez MD CHEMISTRY ORDERABLES Performing Organization Address [facility] Co de Phone Number [facility] [place] [address] * (ABNORMAL) CT Angiogram Abdomen & Pelvis [...] ? Electronically signed by: Eileen Gomes MD, [facility] ([phone]), at 05/11/2023 2:42 PM Narrative 05/11/2023 2:42 [...] signed by: Cullen Narayanan MD, [facility] ([phone]), at 05/11/2023 4:37 PM Narrative 05/11/2023 4:37 [...] 610 mm2 Circumference: 88 mm Calcification: Mild Jdiirzb-rd-haceayqn height: Left: 6.2 mm Right: 5.8 mm THORACIC AORTA Description: Normal course and caliber. ??Mild diffuse atherosclerotic changes. No acute aortopathy noted. Rope Rider dimensions: Aortic root: 27.6 mm Max ascending aorta: 30.5 mm x 27.7 mm Suggested fluoroscopic angulation based on line extending through the nadirs of the three sinuses of Valsalva, set equidistant: ?? GUYANESE ??9 degrees; cranial 7 degrees MITRAL: Mitral [...] 610 mm2 Circumference: 88 mm Calcification: Mild Evjazru-xw-mmmfoiqm height: Left: 6.2 mm Right: 5.8 mm THORACIC AORTA Description: Normal course and caliber. Mild diffuse atheroscleroticchanges. No acute aortopathy noted. Rope Rider dimensions: Aortic root: 27.6 mm Max ascending aorta: 30.5 mm x 27.7 mm Suggested fluoroscopic angulation based on line extending through thenadirs of the three sinuses of Valsalva, set equidistant: GUYANESE 9 degrees; cranial 7 degrees MITRAL: Mitral [...] signed by: Cullen Narayanan MD, [facility] [facility]([phone]), at 05/11/2023 4:37 PM Antelmo Sharma MD IMG CT ORDERABLES * (ABNORMAL) Lactate, whole blood, [place] lab [place] [place] (05/11/2023 9:29 AM EDT) [facility] Lactate WB 3.1(H) 0.5 - 2.2 mmol/L [facility] Blood 05/11/2023 9:29 AM EDT 05/11/2023 9:38 AM EDT Narrative Resulting Agency Comment Spec In Lab Juan Luis Gonzalez MD CHEMISTRY ORDERABLES [facility] [place] [address] * (ABNORMAL) Differential, Automated (05/11/2023 4:42 AM EDT) Pathologist [facility] Neutrophil % 78.1 % [facility] Neutrophil Absolute 5.46 1.70 - 6.10 x10(3)/mc L [facility] Lymph % 10.6 % [facility] Lymphocytes Abs 0.7(L) 0.9 - 3.2 x10(3)/mc L [facility] Monocyte % 9.6 % [facility] Monocyte Abs 0.7 0.3 - 0.9 x10(3)/mc L [facility] Eos % 0.0 % [facility] Eosinophils Abs 0.0 0.0 - 0.4 x10(3)/mc L [facility] Basophil % 0.4 % [facility] Baso Absolute 0.0 0.0 - 0.1 x10(3)/mc L [facility] Immature Gran % 1.30 % [facility] Comment: Immature granulocytes(IG's)percentage and absolute count will include metamyelocytes, myelocytes, and promyelocytes. Blood smears from CBCs yielding IG's will be scanned manually for concordance. If this scan disagrees with the automated IG or if promyelocytes are noted, a manual differential will be performed. Immature Gran Absolute 0.09(H) 0.00 - 0.04 x10(3)/ L [facility] Blood 05/11/2023 4:42 AM EDT 05/11/2023 4:49 AM EDT Narrative Resulting Agency Comment Spec In Lab Klaudia Reid MD HEMATOLOGY OR DERABLES Performing Organization Address City/State/[facility] Co de Phone Number [facility] [place] [address] * (ABNORMAL) Hemogram (05/11/2023 4:42 AM EDT) White Blood Cell 7.0 4.0 - 9.5 x10(3)/mc L [facility] Red Blood Cell 3.44(L) 4.00 - 5.21 x10(6)/mc L [facility] Hemoglobin 11.1(L) 11.7 - 15.5 g/dL [facility] Hematocrit 32.7(L) 35.7 - 45.8 % [facility] Mean Cell Volume 95.1(H) 82.6 - 94.4 fL [facility] Mean Cell Hemoglobin 32.3(H) 27.1 - 32.0 pg [facility] Mean Cell Hemoglobin Concentration 33.9 31.7 - 35.0 g/dL [facility] Platelet 165 145 - 357 x10(3)/mc L [facility] RDW Standard Deviation 43.1 37.0 - 46.0 fL [facility] RDW coefficient of variation 12.7 11.5 - 14.1 % [facility] Mean Platelet Volume 10.1 7.6 - 12.9 fL [facility] NRBC% auto 0.0 % [facility] NRBC Absolute 0.000 0.000 - 0.000 x10(3)/mc L [facility] Blood 05/11/2023 4:42 AM EDT 05/11/2023 4:49 AM EDT Narrative Resulting Agency Comment Spec In Lab Klaudia Reid MD HEMATOLOGY OR DERABLES Performing Organization Address [facility] Co de Phone Number [facility] [place] [address] * Heparin (unfractionated) Level (05/11/2023 4:42 AM EDT) UF Heparin 0.46 IU/mL [facility] Comment: Heparin (anti-Xa) levels should [...] MD HEMATOLOGY ORDERAB LES Performing Organization Address [facility] Co de Phone Number [facility] [place] [address] * (ABNORMAL) Comprehensive metabolic panel (non-fasting) (05/11/2023 4:42 AM EDT) Glucose 143 65 - 199 mg/dL [facility] Comment:Diabetes: >=200 mg/d L plus symptoms Blood Urea Nitrogen 42(H) 8 - 18 mg/dL [facility] Creatinine 1.24(H) 0.70 - 1.20 mg/dL [facility] Sodium 134(L) 135 - 145 mmol/L [facility] Potassium 4.6 3.5 - 5.0 mmol/L [facility] Comment: Please note: ??Patients with WBC >100,000 may have falsely elevated Potassium levels. ??For accurate Potassium quantification in these patients send serum separator tube (gold top) for subsequent determinations. ??Contact the Clinical Chemistry Laboratory if there are any questions. Chloride 99 98 - 107 mmol/L [facility] Carbon Dioxide 14(L) 22 - 31 mmol/L [facility] Anion Gap 21(H) 5 - 15 mmol/L [facility] Calcium 9.6 8.5 - 10.5 mg/dL [facility] Protein, Total 7.2 6.1 - 8.0 g/dL [facility] Albumin 3.7 3.2 - 5.2 g/dL [facility] Aspartate Aminotransferase 144(H) 0 - 30 unit/L [facility] Comment:result rechecked-ssc Alanine Aminotransferase 130(H) 0 - 30 unit/L [facility] Comment:result rechecked-ssc Alkaline Phosphatase 72 35 - 105 unit/L [facility] Bilirubin, Total 0.8 0.2 - 1.3 mg/dL [facility] Est Glomerular Filtration Rate 48(L) >=60 mL/min/1. 73 m?? [facility]/ZIP Co de Phone Number [facility] [place] [address] * EKG 12 Lead (05/10/2023 1:16 PM EDT) Ventricular rate 118 BPM MUSE SYSTEM Atrial Rate 118 BPM MUSE SYSTEM P-R Interval 152 ms MUSE SYSTEM QRS Duration 104 ms MUSE SYSTEM Q-T Interval 316 ms MUSE SYSTEM QTC Calculated (Bezet) 442 ms MUSE SYSTEM Calculated P Ryder 29 degrees MUSE SYSTEM Calculated R Ryder 18 degrees MUSE SYSTEM Calculated T Ryder -173 degrees MUSE SYSTEM INTERPRETATION Sinus tachycardia [...] Anterior leads Confirmed by MD Villareal Danette ([id number]) on 05/10/2023 8:47:46 PM MUSE SYSTEM 05/10/2023 1:16 PM EDT 05/10/2023 8:47 PM EDT Juan Luis Gonzalez MD ECG ORDERABLES Performing Organization Address City/[facility]/ZIP Co de Phone Number MUSE SYSTEM * Lactate, whole blood, [place] to lab [place] [place] (05/10/2023 11:52 AM EDT) Lactate WB 1.8 0.5 - 2.2 mmol/L [facility] Blood 05/10/2023 11:5 2 AM EDT 05/10/2023 12:13 PM EDT Narrative Resulting Agency Comment Spec In Lab Juan Luis Gonzalez MD CHEMISTRY ORDERABLES Performing Organization Address City/[facility]/ZIP Co de Phone Number [facility] [place] [address] * XR Chest One View (05/10/2023 11:16 [...] your imaging first. ? Electronically signed by: LAIX RUVALCABA MD, [facility] ([phone]), at 05/10/2023 1:25 PM Narrative 05/10/2023 1:25 [...] signed by: ALIX RUVALCABA MD, [facility]([phone]), at 05/10/2023 1:25 PM Juan Luis Gonzalez MD IMG DX ORDERABLES * EKG 12 Lead (05/10/2023 7:59 AM EDT) Ventricular rate 115 BPM MUSE SYSTEM Atrial Rate 115 BPM MUSE SYSTEM P-R Interval 142 ms MUSE SYSTEM QRS Duration 102 ms MUSE SYSTEM Q-T Interval 322 ms MUSE SYSTEM QTC Calculated (Bezet) 445 ms MUSE SYSTEM Calculated P Ryder 36 degrees MUSE SYSTEM Calculated R Ryder 28 degrees MUSE SYSTEM Calculated T Ryder -119 degrees MUSE SYSTEM INTERPRETATION Sinus tachycardia with frequent Premature ventricular complexes and Fusion complexes ST & T wave abnormality, consider lateral ischemia Abnormal ECG When compared with ECG of 08-MAY-2023 15:51, No significant change was found I personally reviewed the tracing and edited the fellows interpretation Confirmed by fellow MD Anitha, [facility] () on 05/11/2023 6:19:54 AM Confirmed by MD Tram, [place] ([id number]) on 05/11/2023 3:18:56 PM MUSE SYSTEM 05/10/2023 7:59 AM EDT 05/11/2023 3:18 PM EDT Radha Hollins MD ECG ORDERABLES MUSE SYSTEM * (ABNORMAL) Differential, Automated (05/10/2023 2:28 AM EDT) Neutrophil % 77.1 % [facility] Neutrophil Absolute 4.01 1.70 - 6.10 x10(3)/mc L [facility] Lymph % 14.0 % [facility] Lymphocytes Abs 0.7(L) 0.9 - 3.2 x10(3)/mc L [facility] Monocyte % 7.7 % [facility] Monocyte Abs 0.4 0.3 - 0.9 x10(3)/ L [facility] Eos % 0.4 % [facility] Eosinophils Abs 0.0 0.0 - 0.4 x10(3)/ L [facility] Basophil % 0.4 % [facility] Baso Absolute 0.0 0.0 - 0.1 x10(3)/mc L [facility] Immature Gran % 0.40 % [facility] Comment: Immature granulocytes(IG's)percentage and absolute count will include metamyelocytes, myelocytes, and promyelocytes. Blood smears from CBCs yielding IG's will be scanned manually for concordance. If this scan disagrees with the automated IG or if promyelocytes are noted, a manual differential will be performed. Immature Gran Absolute 0.02 0.00 - 0.04 x10(3)/ L [facility] Blood 05/10/2023 2:28 AM EDT 05/10/2023 2:57 AM EDT Narrative Resulting Agency Comment Spec In Lab Klaudia Reid MD HEMATOLOGY OR DERABLES Performing Organization Address City/State/[facility] Co de Phone Number [facility] [place] [address] * (ABNORMAL) Hemogram (05/10/2023 2:28 AM EDT) White Blood Cell 5.2 4.0 - 9.5 x10(3)/mc L [facility] Red Blood Cell 3.11(L) 4.00 - 5.21 x10(6)/ L [facility] Hemoglobin 10.2(L) 11.7 - 15.5 g/dL [facility] Hematocrit 30.2(L) 35.7 - 45.8 % [facility] Mean Cell Volume 97.1(H) 82.6 - 94.4 fL [facility] Mean Cell Hemoglobin 32.8(H) 27.1 - 32.0 pg [facility] Mean Cell Hemoglobin Concentration 33.8 31.7 - 35.0 g/dL [facility] Platelet 151 145 - 357 x10(3)/mc L [facility] RDW Standard Deviation 44.9 37.0 - 46.0 fL [facility] RDW coefficient of variation 12.8 11.5 - 14.1 % [facility] Mean Platelet Volume 9.8 7.6 - 12.9 fL [facility] NRBC% auto 0.0 % [facility] NRBC Absolute 0.000 0.000 - 0.000 x10(3)/mc L [facility] Blood 05/10/2023 2:28 AM EDT 05/10/2023 2:57 AM EDT Narrative Resulting Agency Comment Spec In Lab Klaudia Reid MD HEMATOLOGY OR DERABLES Performing Organization Address City/State/[facility] Co de Phone Number [facility] [place] [address] * (ABNORMAL) Comprehensive metabolic panel (non-fasting) (05/10/2023 2:28 AM EDT) Glucose 100 65 - 199 mg/dL [facility] Comment:Diabetes: >=200 mg/d L plus symptoms Blood Urea Nitrogen 30(H) 8 - 18 mg/dL [facility] Creatinine 0.90 0.70 - 1.20 mg/dL [facility] Sodium 134(L) 135 - 145 mmol/L [facility] Potassium 4.1 3.5 - 5.0 mmol/L [facility] Comment: Please note: ??Patients with WBC >100,000 may have falsely elevated Potassium levels. ??For accurate Potassium quantification in these patients send serum separator tube (gold top) for subsequent determinations. ??Contact the Clinical Chemistry Laboratory if there are any questions. Chloride 102 98 - 107 mmol/L [facility] Carbon Dioxide 20(L) 22 - 31 mmol/L [facility] Anion Gap 12 5 - 15 mmol/L [facility] Calcium 9.3 8.5 - 10.5 mg/dL [facility] Protein, Total 6.4 6.1 - 8.0 g/dL [facility] Albumin 3.7 3.2 - 5.2 g/dL [facility] Aspartate Aminotransferase 24 0 - 30 unit/L [facility] Alanine Aminotransferase 14 0 - 30 unit/L [facility] Alkaline Phosphatase 70 35 - 105 unit/L [facility] Bilirubin, Total 0.5 0.2 - 1.3 mg/dL [facility] Est Glomerular Filtration Rate 70 >=60 mL/min/1. 73 m?? [facility] Comment: This patient's [...] Lab Radha Hollins MD CHEMISTRY ORDERABL ES [facility] [place] [address] * Heparin (unfractionated) Level (05/10/2023 2:28 AM EDT) UF Heparin 0.37 IU/mL [facility] Comment: Heparin [...] Lab Radha Hollins MD [place]EM[place]OLOG[place] [address] * (ABNORMAL) Differential, Automated (05/09/2023 4:00 AM EDT) Neutrophil % 81.7 % [facility] Neutrophil Absolute 5.26 1.70 - 6.10 x10(3)/mc L [facility] Lymph % 10.7 % [facility] Lymphocytes Abs 0.7(L) 0.9 - 3.2 x10(3)/mc L [facility] Monocyte % 6.5 % [facility] Monocyte Abs 0.4 0.3 - 0.9 x10(3)/mc L [facility] Eos % 0.5 % [facility] Eosinophils Abs 0.0 0.0 - 0.4 x10(3)/mc L [facility] Basophil % 0.3 % [facility] Baso Absolute 0.0 0.0 - 0.1 x10(3)/mc L [facility] Immature Gran % 0.30 % [facility] Comment: Immature granulocytes(IG's)percentage and absolute count will include metamyelocytes, myelocytes, and promyelocytes. Blood smears from CBCs yielding IG's will be scanned manually for concordance. If this scan disagrees with the automated IG or if promyelocytes are noted, a manual differential will be performed. Immature Gran Absolute 0.02 0.00 - 0.04 x10(3)/mc L [facility] Blood 05/09/2023 4:00 AM EDT 05/09/2023 4:19 AM EDT Narrative Resulting Agency Comment Spec In Lab Klaudia Reid MD HEMATOLOGY OR DERABLES Performing Organization Address City/[facility]/[place] [address] * (ABNORMAL) Hemogram (05/09/2023 4:00 AM EDT) White Blood Cell 6.4 4.0 - 9.5 x10(3)/mc L [facility] Red Blood Cell 3.15(L) 4.00 - 5.21 x10(6)/mc L [facility] Hemoglobin 10.2(L) 11.7 - 15.5 g/dL [facility] Hematocrit 30.3(L) 35.7 - 45.8 % [facility] Mean Cell Volume 96.2(H) 82.6 - 94.4 fL [facility] Mean Cell Hemoglobin 32.4(H) 27.1 - 32.0 pg [facility] Mean Cell Hemoglobin Concentration 33.7 31.7 - 35.0 g/dL [facility] Platelet 151 145 - 357 x10(3)/mc L [facility] RDW Standard Deviation 44.7 37.0 - 46.0 fL [facility] RDW coefficient of variation 12.8 11.5 - 14.1 % [facility] Mean Platelet Volume 9.4 7.6 - 12.9 fL [facility] NRBC% auto 0.0 % [facility] NRBC Absolute 0.000 0.000 - 0.000 x10(3)/mc L [facility] Blood 05/09/2023 4:00 AM EDT 05/09/2023 4:19 AM EDT Narrative Resulting Agency Comment Spec In Lab Klaudia Reid MD HEMATOLOGY OR DERABLES Performing Organization Address City/State/[facility] Co de Phone Number [facility] [place] [address] * Heparin (unfractionated) Level (05/09/2023 4:00 AM EDT) UF Heparin 0.47 IU/mL [facility] Comment: Heparin (anti-Xa) levels should [...] Lab Radha Hollins MD HEMATOLOGY ORDERAB LES [facility] [place] [address] * (ABNORMAL) Comprehensive metabolic panel (non-fasting) (05/09/2023 4:00 AM EDT) Glucose 108 65 - 199 mg/dL [facility] Comment:Diabetes: >=200 mg/d L plus symptoms Blood Urea Nitrogen 31(H) 8 - 18 mg/dL [facility] Creatinine 1.03 0.70 - 1.20 mg/dL [facility] Sodium 137 135 - 145 mmol/L [facility] Potassium 4.4 3.5 - 5.0 mmol/L [facility] Comment: Please note: ??Patients with WBC >100,000 may have falsely elevated Potassium levels. ??For accurate Potassium quantification in these patients send serum separator tube (gold top) for subsequent determinations. ??Contact the Clinical Chemistry Laboratory if there are any questions. Chloride 102 98 - 107 mmol/L [facility] Carbon Dioxide 20(L) 22 - 31 mmol/L [facility] Anion Gap 15 5 - 15 mmol/L [facility] Calcium 9.3 8.5 - 10.5 mg/dL [facility] Protein, Total 6.6 6.1 - 8.0 g/dL [facility] Albumin 3.8 3.2 - 5.2 g/dL [facility] Aspartate Aminotransferase 32(H) 0 - 30 unit/L [facility] Alanine Aminotransferase 18 0 - 30 unit/L [facility] Alkaline Phosphatase 78 35 - 105 unit/L [facility] Bilirubin, Total 0.5 0.2 - 1.3 mg/dL [facility] Est Glomerular Filtration Rate 60 >=60 mL/min/1. 73 m?? [facility]/ZIP Co de Phone Number [facility] [place] [address] * (ABNORMAL) pro-Brain Natriuretic Peptide (05/08/2023 4:00 PM EDT) NT-proBNP 25,503(H) <=124 pg/mL [facility] Blood Venous Draw / Unknown 05/08/2023 4:00 PM EDT 05/08/2023 4:25 PM EDT Narrative Resulting Agency Comment Spec In Lab Juan Luis Gonzalez MD CHEMISTRY ORDERABLES [facility] [place] [address] * Magnesium (05/08/2023 4:00 PM EDT) Magnesium 0.82 0.69 - 1.07 mmol/L [facility] Blood 05/08/2023 4:00 PM EDT 05/08/2023 4:06 PM EDT Narrative Resulting Agency Comment Spec In Lab Enrique Chua MD CHEMISTRY ORDERABLES Performing Organization Address [facility] Co de Phone Number [facility] [place] [address] * Potassium (05/08/2023 4:00 PM EDT) Potassium 3.9 3.5 - 5.0 mmol/L [facility] Comment: Please note: [...] Performing Organization Address [facility] de Phone Number [facility] [place] [address] * Heparin (unfractionated) Level (05/08/2023 4:00 PM EDT) UF Heparin 0.43 IU/mL [facility] Comment: Heparin [...] MD HEMATOLOGY ORDERAB LES Performing Organization Address [facility] Co de Phone Number [facility] [place] [address] * EKG 12 Lead (05/08/2023 3:51 PM EDT) Ventricular rate 98 BPM MUSE SYSTEM Atrial Rate 98 BPM MUSE SYSTEM P-R Interval 150 ms MUSE SYSTEM QRS Duration 102 ms MUSE SYSTEM Q-T Interval 358 ms MUSE SYSTEM QTC Calculated (Bezet) 457 ms MUSE SYSTEM Calculated P Ryder 38 degrees MUSE SYSTEM Calculated R Ryder 48 degrees MUSE SYSTEM Calculated T Ryder -112 degrees MUSE SYSTEM INTERPRETATION Sinus rhythm with frequent and consecutive Premature ventricular and fusion complexes Septal infarct , age undetermined ST & T wave abnormality, consider anterolateral ischemia Abnormal ECG When compared with ECG of 09-NOV-2022 11:17, T wave inversion now evident in Anterolateral leads Confirmed by MD Harshil, Enrique Bell ([id number]) on 05/10/2023 8:11:46 AM MUSE SYSTEM 05/08/2023 3:51 PM EDT 05/10/2023 8:11 AM EDT Radha Hollins MD ECG ORDERABLES MUSE SYSTEM * (ABNORMAL) Differential, Automated (05/08/2023 11:38 AM EDT) Pathologist [facility] Neutrophil % 71.3 % [facility] Neutrophil Absolute 2.91 1.70 - 6.10 x10(3)/mc L [facility] Lymph % 19.1 % [facility] Lymphocytes Abs 0.8(L) 0.9 - 3.2 x10(3)/mc L [facility] Monocyte % 9.0 % [facility] Monocyte Abs 0.4 0.3 - 0.9 x10(3)/mc L [facility] Eos % 0.2 % [facility] Eosinophils Abs 0.0 0.0 - 0.4 x10(3)/mc L [facility] Basophil % 0.2 % [facility] Baso Absolute 0.0 0.0 - 0.1 x10(3)/mc L [facility] Immature Gran % 0.20 % [facility] Comment: Immature granulocytes(IG's)percentage and absolute count will include metamyelocytes, myelocytes, and promyelocytes. Blood smears from CBCs yielding IG's will be scanned manually for concordance. If this scan disagrees with the automated IG or if promyelocytes are noted, a manual differential will be performed. Immature Gran Absolute 0.01 0.00 - 0.04 x10(3)/ L [facility] Blood 05/08/2023 11:3 8 AM EDT 05/08/2023 11:44 AM EDT Narrative Resulting Agency Comment Spec In Lab Lincoln Sal MD HEMATOLOGY ORDERA BLES [facility] [place] [address] * (ABNORMAL) Hemogram (05/08/2023 11:38 AM EDT) White Blood Cell 4.1 4.0 - 9.5 x10(3)/[facility] Red Blood Cell 3.05(L) 4.00 - 5.21 x10(6)/[facility] Hemoglobin 10.2(L) 11.7 - 15.5 g/dL [facility] Hematocrit 29.6(L) 35.7 - 45.8 % [facility] Mean Cell Volume 97.0(H) 82.6 - 94.4 fL [facility] Mean Cell Hemoglobin 33.4(H) 27.1 - 32.0 pg [facility] Mean Cell Hemoglobin Concentration 34.5 31.7 - 35.0 g/dL [facility] Platelet 136(L) 145 - 357 x10(3)/[facility] RDW Standard Deviation 44.3 37.0 - 46.0 fL [facility] RDW coefficient of variation 12.6 11.5 - 14.1 % [facility] Mean Platelet Volume 9.4 7.6 - 12.9 fL [facility] NRBC% auto 0.0 % [facility] NRBC Absolute 0.000 0.000 - 0.000 x10(3)/ L [facility] Blood 05/08/2023 11:3 8 AM EDT 05/08/2023 11:44 AM EDT Narrative Resulting Agency Comment Spec In Lab Lincoln Sal MD HEMATOLOGY ORDERA BLES Performing Organization Address [facility] Co de Phone Number [facility] [place] [address] * TSH (05/08/2023 11:38 AM EDT) Thyroid Stimulating Hormone 1.27 0.27 - 4.20 mcIU/mL [facility] Comment: Reference Interval (mcIU/mL): Females: ??First Trimester: 0.23-3.88 ??Second Trimester: 0.22-3.90 ??Third Trimester: 0.44-4.66 Blood 05/08/2023 11:3 8 AM EDT 05/08/2023 11:44 AM EDT Narrative Resulting Agency Comment Spec In Lab Enrique Chua MD CHEMISTRY ORDERABLES Performing Organization Address [facility] Co de Phone Number [facility] [place] [address] * (ABNORMAL) Phosphorus (05/08/2023 11:38 AM EDT) Phosphorus 4.7(H) 2.5 - 4.5 mg/dL [facility] Blood 05/08/2023 11:3 8 AM EDT 05/08/2023 11:44 AM EDT Narrative Resulting Agency Comment Spec In Lab Enrique Chua MD CHEMISTRY ORDERABLES Performing Organization Address [facility] Co de Phone Number [facility] [place] [address] * Magnesium (05/08/2023 11:38 AM EDT) Magnesium 0.76 0.69 - 1.07 mmol/L [facility] Blood 05/08/2023 11:3 8 AM EDT 05/08/2023 11:44 AM EDT Narrative Resulting Agency Comment Spec In Lab Enrique Chua MD CHEMISTRY ORDERABLES Performing Organization Address [facility] Co de Phone Number [facility] [place] [address] * (ABNORMAL) Basic Metabolic Panel (non-fasting) (05/08/2023 11:38 AM EDT) Glucose 97 65 - 199 mg/dL [facility] Comment:Diabetes: >=200 mg/d L plus symptoms Blood Urea Nitrogen 27(H) 8 - 18 mg/dL [facility] Creatinine 1.02 0.70 - 1.20 mg/dL [facility] Sodium 139 135 - 145 mmol/L [facility] Potassium 4.2 3.5 - 5.0 mmol/L [facility] Comment: Please note: ??Patients with WBC >100,000 may have falsely elevated Potassium levels. ??For accurate Potassium quantification in these patients send serum separator tube (gold top) for subsequent determinations. ??Contact the Clinical Chemistry Laboratory if there are any questions. Chloride 105 98 - 107 mmol/L [facility] Carbon Dioxide 20(L) 22 - 31 mmol/L [facility] Anion Gap 14 5 - 15 mmol/L [facility] Calcium 9.4 8.5 - 10.5 mg/dL [facility] Est Glomerular Filtration Rate 60 >=60 mL/min/1. 73 m?? [facility] [...] Organization Address City/[facility] Co de Phone Number [facility] [place] [address] * ECHO COMPLETE (05/08/2023 11:02 AM EDT) EF 25 HEARTLAB SYSTEM Anatomical Region Laterality Modality Cardiac Other 05/08/2023 10:0 3 AM EDT Narrative 05/08/2023 11:51 AM EDT ? Echocardiogram Report Name: PURNIMA THACKER ?Study Date: 05/08/2023 10:03 AMBP: 92/64 mmHg ? Patient Location: [facility]^CV29^A : 1955 ? Height: 155 cm ? Account: [id number] Age: 67 yrs ? Weight: 78 kg Gender: Female ?BSA: 1.8 m2 Ordering Physician: ENRIQUE CHUA Referring Physician: MARIO ALBERTO CHIN Performed By: CHUCKIE Canchola Reason For Study: SAVR Stenosis Exam Location: [facility]. Interpretation Summary -Left ventricle is [...] worsening stenosis. Mitral regurgitation is similar. Procedure Complete-[id number]. Satisfactory quality. There is normal sinus rhythm. [...] Study Date: 0:03 AMBP: 92/64 mmHg Patient Location:[facility]^CV29^A : 1955 Height: 155 cm Account: [id number] Age: 67 yrs Weight: 78 kg Gender: Female BSA: 1.8 m2 Ordering Physician: ENRIQUE CHUA Referring Physician: MARIO ALBERTO CHIN Performed By: CHUCKIE Canchola Reason For Study: SAVR Stenosis Exam Location: [facility]. Interpretation Summary -Left ventricle is [...] suggestsworsening stenosis. Mitral regurgitation is similar. Procedure Complete-[id number]. Satisfactory quality. There is normal sinus rhythm. 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
--- OUTSIDE RECORDS SUMMARY | 2024-06-27 15:20 | XMS_ITS | Encounter Summary ---
Author Organization [facility] [place] [address] Care Team Providers Care Candy Maker Helper Name Role Phone Ashley Quirogan Sylvia ANURAG Primary Care Provider [phone] Encounter Details Date Type Department Care Team (Late st Contact Info) Description 01/14/2023 Refill Dermatology at [address] [address] Lupe Connor RN Social [...] She would like the medication called into [facility] in [facility]. Discussed with Dr. Bonilla and he has approved refill of the Doxycycline 50 mg take one capsule by mouth daily in the evenings dispense 30 capsules with 2 refills. Patient notified. documented in this encounter Plan of Treatment Upcoming Encounters Date Type Department Care Team (Late st Contact Info) Description 11/02/2024 12:00 PM EDT Appointment [place] [address] 11/02/2024 1:00 PM EDT Office [place] [address] Magdalena Peralta MD [facility] [place] [address] 03/01/2025 4:15 PM EDT Office Visit Dermatology at [place] [address] [place] [phone] Marek Bonilla MD [address] [place] [address] documented as of this encounter Visit Diagnoses Not on filedocumented in this encounter Care Teams Candy Maker Helper Relationship Specialty Start Date End Date Deborah Quiroga APRN PCP - General Family Medicine 03/24/16 02/04/23 documented as of this encounter
--- OUTSIDE RECORDS SUMMARY | 2024-06-27 15:20 | XMS_ITS | Encounter Summary ---
Author Organization [facility] [place] [address] Care Team Providers Care Contract Implementation Analyst Name Role Phone Magdalena Acosta MD Primary Care Provider [phone] Encounter Details Date Type Department Care Team (Late st Contact Info) Description 02/17/2023 2:00 PM EDT Office [place] [phone] Alirio Esparza MD Aortic valve stenosis, etiology [...] 11/02/2024 12:00 PM EDT Appointment [place] [address] 11/02/2024 1:00 PM EDT Office [place] [phone] Magdalena Peralta MD [facility] [place] [address] 03/01/2025 4:15 PM EDT Office Visit Dermatology at [place] [address] [place] [address] Marek Bonilla MD [address] [facility] [place] [address] documented as of this encounter Visit Diagnoses Diagnosis Aortic valve stenosis, etiology of cardiac valve disease unspecified documented in this encounter Care Teams Contract Implementation Analyst Relationship Specialty Start Date End Date Magdalena Acosta MD [address] [place] [address] PCP - General Family Medicine 02/05/23 documented as of this encounter
--- OUTSIDE RECORDS SUMMARY | 2024-06-27 15:20 | XMS_ITS | Encounter Summary ---
Author Organization [facility] Address [facility] [place] [address] Care Team Providers Care Firebrick And Refractory Tile Repairer Name Role Phone Magdalena Acosta MD Primary Care Provider [phone] Reason for Visit * Consultation (Routine) - Closed Specialty Diagnoses / Procedures Referred By Contac t Referred To Contact Rheumatology Diagnoses Weakness Kyra Haas MD [facility] [address] [place] [address] [facility] Rheumatology [address] [place] [phone] Referral ID Status Reason Start Date Expiration Date V isits Requested Visits Authorized [id number] Closed Consult, Test & Treat PCP Updated and/or Approved 02/25/2023 02/25/2024 6 6 Encounter Details Date Type Department Care Team (Late st Contact Info) Description 03/18/2023 1:00 PM EDT [place] [address] Kia Viramontes, [facility] [place] [address] Magdalena Peralta MD [facility] [address] Positive FRANCISCO (antinuclear antibody) Social [...] 1:5120 speckled VIC negative Myositis panel with [employer]A DIALYZER ab 149.1 (positive) Anti U1RNP IgG 119 [...] a chair without assistance of upper extremities. Clinical Social Work Therapist strength 3+/5 bilaterally; otherwise large muscle groups [...] Dr. Wander Peralta MD Rheumatology Fellow Pager: [phone] CC: Kyra Haas * Kia Viramontes DO - 03/18/2023 1:00 PM EDT ATTENDING ADDENDUM The patient's history was reviewed, and I interviewed and examined the patient with Dr. Peralta. Catalina with her summary, findings, and plan. documented in this encounter Plan of Treatment Upcoming Encounters Date Type Department Care Team (Late st Contact Info) Description 11/02/2024 12:00 PM EDT [place] [address] 11/02/2024 1:00 PM EDT [place] [phone] Magdalena Peralta MD [facility] [place] [address] 03/01/2025 4:15 PM EDT Office Visit Dermatology at [place] [address] [facility] [place] [address] Marek Bonilla MD [address] [facility] [place] [address] documented as of this encounter Results * Comprehensive metabolic panel (non-fasting) (03/18/2023 2:14 PM EDT) [facility] Glucose 93 65 - 199 mg/dL [facility] Comment:Diabetes: >=200 mg/d L plus symptoms Blood Urea Nitrogen 18 8 - 18 mg/dL [facility] Creatinine 0.99 0.70 - 1.20 mg/dL [facility] Sodium 141 135 - 145 mmol/L [facility] Potassium 4.5 3.5 - 5.0 mmol/L [facility] Comment: Please note: ??Patients with WBC >100,000 may have falsely elevated Potassium levels. ??For accurate Potassium quantification in these patients send serum separator tube (gold top) for subsequent determinations. ??Contact the Clinical Chemistry Laboratory if there are any questions. Chloride 106 98 - 107 mmol/L [facility] Carbon Dioxide 24 22 - 31 mmol/L [facility] Anion Gap 11 5 - 15 mmol/L [facility] Calcium 10.0 8.5 - 10.5 mg/dL [facility] Protein, Total 7.3 6.1 - 8.0 g/dL [facility] Albumin 4.3 3.2 - 5.2 g/dL [facility] Aspartate Aminotransferase 26 0 - 30 unit/L [facility] Alanine Aminotransferase 11 0 - 30 unit/L [facility] Alkaline Phosphatase 91 35 - 105 unit/L [facility] Bilirubin, Total 0.4 0.2 - 1.3 mg/dL [facility] Est Glomerular Filtration Rate 62 >=60 mL/min/1. 73 m?? [facility] Comment: This patient's estimated [...] Address City/State/[facility] Co de Phone Number [facility] [place] [address] * (ABNORMAL) FRANCISCO Ab by IFA (03/18/2023 2:14 PM EDT) FRANCISCO Ab Screen Test ? Result ?Flag ??Unit ??RefValue Antinuclear Ab, HEp-2 ?Positive 1:2560 ??@ ?<1:80 (Negative) ??Substrate, S ? ADDITIONAL INFORMATION --------- ?Method: Immunofluorescence using HEp-2 cellular substrate. ??FRANCISCO Titer: ? 1:2560 ??FRANCISCO Pattern: ? Speckled ?Test Performed by: ?[facility] ?[address] [place] [address] ?Software Tools Build Engineer: Raymond Chaudhry M.D. Ph.D.; CLIA# [id number] ([id number]) [facility] Blood 03/18/2023 2:14 PM EDT 03/18/2023 3:02 PM EDT Narrative Resulting Agency Comment Spec In Lab Kia Viramontes DO CHEMISTRY ORDERABL ES [facility] [place] [address] * DNA Antibody (Double-Stranded) (03/18/2023 2:14 PM EDT) dsDNA Ab <0.6 <=15.0 IU/mL [facility] Comment: <10 negative 10-15 equivocal >15 positive This dsDNA antibody result was generated using a fluoroenzyme immunoassay on the [employer]klikk 250 analyzer. This quantitative test is designed [...] SEND OUT ORDER JODIE Performing Organization Address City/[facility] Co de Phone Number [facility] [place] [address] * CK (03/18/2023 2:14 PM EDT) Creatine Kinase 38 0 - 160 unit/L [facility] Blood 03/18/2023 2:14 PM EDT 03/18/2023 2:24 PM EDT Narrative Resulting Agency Comment Spec In Lab Kia Viramontes DO CHEMISTRY ORDERABL ES Performing Organization Address [facility] Co de Phone Number [facility] [place] [address] * C4 Complement (03/18/2023 2:14 PM EDT) Complement C4 30 10 - 40 mg/dL [facility] Blood 03/18/2023 2:14 PM EDT 03/18/2023 2:24 PM EDT Narrative Resulting Agency Comment Spec In Lab Kia Viramontes DO CHEMISTRY ORDERABL ES Performing Organization Address [facility] de Phone Number [facility] [place] [address] * C3 Complement (03/18/2023 2:14 PM EDT) Complement C3 142 90 - 180 mg/dL [facility] Blood 03/18/2023 2:14 PM EDT 03/18/2023 2:24 PM EDT Narrative Resulting Agency Comment Spec In Lab Kia Viramontes DO CHEMISTRY ORDERABL ES Performing Organization Address [facility] Co de Phone Number [facility] [place] [address] * CRP, acute inflammation (03/18/2023 2:14 PM EDT) C-Reactive Protein 3.0 <=4.9 mg/L [facility] Blood 03/18/2023 2:14 PM EDT 03/18/2023 2:24 PM EDT Narrative Resulting Agency Comment Spec In Lab Kia Viramontes DO CHEMISTRY ORDERABL ES Performing Organization Address [facility] Co de Phone Number [facility] [place] [address] * (ABNORMAL) Sedimentation rate (03/18/2023 2:14 PM EDT) Sedimentation Rate Automated 68(H) 2 - 39 mm/hr [facility] Comment: Effective July 12, 2019 new capillary photometric technology has resulted in a change in reference ranges. It is recommended that each ESR result be reviewed with its own age appropriate reference range. Blood 03/18/2023 2:14 PM EDT 03/18/2023 2:24 PM EDT Narrative Resulting Agency Comment Spec In Lab Kia Viramontes DO HEMATOLOGY ORDERAB LES Performing Organization Address [facility] Co de Phone Number [facility] [place] [address] documented in this encounter Visit Diagnoses Diagnosis Positive FRANCISCO (antinuclear antibody) Other and unspecified nonspecific immunological findings documented in this encounter Care Teams Firebrick And Refractory Tile Repairer Relationship Specialty Start Date End Date Magdalena Acosta MD [address] [place] [address] PCP - General Family Medicine 02/05/23 documented as of this encounter
--- OUTSIDE RECORDS SUMMARY | 2024-06-27 15:20 | XMS_ITS | Encounter Summary ---
Author Organization [facility] Address [facility] Erika lópez[place] [address] Care Team Providers Care Gourmet Coffee Attendant Name Role Phone Magdalena Acosta MD Primary Care Provider [phone] Encounter Details Date Type Department Care Team (Latest Contact Info) Description 03/18/2023 2:30 PM EDT Laboratory Appointment Lab [address] [address] Positive FRANCISCO (antinuclear antibody) Social [...] 11/02/2024 12:00 PM EDT [place] [address] 11/02/2024 1:00 PM EDT [place] [address] Magdalena Peralta MD [facility] [place] [address] 03/01/2025 4:15 PM EDT Office Visit Dermatology at [address] [address] Marek Bonilla MD [address], [place] [address] documented as of this encounter Procedures Procedure [...] 2:14 PM EDT) Neutrophil % 71.2 % [facility] Neutrophil Absolute 2.26 1.70 - 6.10 x10(3)/mc L [facility] Lymph % 18.2 % [facility] Lymphocytes Abs 0.6(L) 0.9 - 3.2 x10(3)/ L [facility] Monocyte % 9.7 % [facility] Monocyte Abs 0.3 0.3 - 0.9 x10(3)/ L [facility] Eos % 0.3 % [facility] Eosinophils Abs 0.0 0.0 - 0.4 x10(3)/ L [facility] Basophil % 0.6 % [facility] Baso Absolute 0.0 0.0 - 0.1 x10(3)/ L [facility] Immature Gran % 0.00 % [facility] Comment: Immature granulocytes(IG's)percentage and absolute count will include metamyelocytes, myelocytes, and promyelocytes. Blood smears from CBCs yielding IG's will be scanned manually for concordance. If this scan disagrees with the automated IG or if promyelocytes are noted, a manual differential will be performed. Immature Gran Absolute 0.00 0.00 - 0.04 x10(3)/ L [facility] Blood 03/18/2023 2:14 PM EDT 03/18/2023 2:24 PM EDT Narrative Resulting Agency Comment Spec In Lab Magdalena Peralta MD HEMATOLOGY ORDERABLE S Performing Organization Address City/State/[facility] Co de Phone Number [facility] [place] [address] * (ABNORMAL) Hemogram (03/18/2023 2:14 PM EDT) White Blood Cell 3.2(L) 4.0 - 9.5 x10(3)/[facility] Red Blood Cell 3.44(L) 4.00 - 5.21 x10(6)/ L [facility] Hemoglobin 11.1(L) 11.7 - 15.5 g/dL [facility] Hematocrit 32.9(L) 35.7 - 45.8 % [facility] Mean Cell Volume 95.6(H) 82.6 - 94.4 fL [facility] Mean Cell Hemoglobin 32.3(H) 27.1 - 32.0 pg [facility] Mean Cell Hemoglobin Concentration 33.7 31.7 - 35.0 g/dL [facility] Platelet 144(L) 145 - 357 x10(3)/mc L [facility] RDW Standard Deviation 42.6 37.0 - 46.0 fL [facility] RDW coefficient of variation 12.3 11.5 - 14.1 % [facility] Mean Platelet Volume 9.4 7.6 - 12.9 fL [facility] NRBC% auto 0.0 % [facility] NRBC Absolute 0.000 0.000 - 0.000 x10(3)/mc L [facility] Blood 03/18/2023 2:14 PM EDT 03/18/2023 2:24 PM EDT Narrative Resulting Agency Comment Spec In Lab Magdalena Peralta MD HEMATOLOGY ORDERABLE S Performing Organization Address City/[facility]/ZIP Co de Phone Number [facility] [place] [address] * (ABNORMAL) Sedimentation rate (03/18/2023 2:14 PM EDT) Sedimentation Rate Automated 68(H) 2 - 39 mm/hr [facility] Comment: Effective July 12, 2019 new capillary photometric technology has resulted in a change in reference ranges. It is recommended that each ESR result be reviewed with its own age appropriate reference range. Blood 03/18/2023 2:14 PM EDT 03/18/2023 2:24 PM EDT Narrative Resulting Agency Comment Spec In Lab Kia Viramontes DO HEMATOLOGY ORDERAB LES [facility] [place] [address] * CRP, acute inflammation (03/18/2023 2:14 PM EDT) C-Reactive Protein 3.0 <=4.9 mg/L [facility] Blood 03/18/2023 2:14 PM EDT 03/18/2023 2:24 PM EDT Narrative Resulting Agency Comment Spec In Lab Kia D Wander DO CHEMISTRY ORDERABL ES Performing Organization Address [facility] Co de Phone Number [facility] [place] [address] * C3 Complement (03/18/2023 2:14 PM EDT) Complement C3 142 90 - 180 mg/dL [facility] Blood 03/18/2023 2:14 PM EDT 03/18/2023 2:24 PM EDT Narrative Resulting Agency Comment Spec In Lab Kia D Wander DO CHEMISTRY ORDERABL ES Performing Organization Address [facility] de Phone Number [facility] [place] [address] * C4 Complement (03/18/2023 2:14 PM EDT) Complement C4 30 10 - 40 mg/dL [facility] Blood 03/18/2023 2:14 PM EDT 03/18/2023 2:24 PM EDT Narrative Resulting Agency Comment Spec In Lab Kia D Wander DO CHEMISTRY ORDERABL ES Performing Organization Address [facility] de Phone Number [facility] [place] [address] * CK (03/18/2023 2:14 PM EDT) Creatine Kinase 38 0 - 160 unit/L [facility] Blood 03/18/2023 2:14 PM EDT 03/18/2023 2:24 PM EDT Narrative Resulting Agency Comment Spec In Lab Kia D Wander DO CHEMISTRY ORDERABL ES Performing Organization Address [facility] Co de Phone Number [facility] [place] [address] * DNA Antibody (Double-Stranded) (03/18/2023 2:14 PM EDT) dsDNA Ab <0.6 <=15.0 IU/mL [facility] Comment: <10 negative 10-15 equivocal >15 positive This dsDNA antibody result was generated using a fluoroenzyme immunoassay on the Wattpad 250 analyzer. This quantitative test is designed to detect IgG antibodies directed against double stranded DNA in human serum. The presence of antibodies that recognize dsDNA is a highly specific marker for systemic lupus erythematosus. Please note that as of 05/26/2022 that this testing is performed by the Special [facility] Laboratory at [facility]. This change in testing location is associated with a change is testing method and reference intervals. Please review the results of this test in association with the posted reference intervals. Blood 03/18/2023 2:14 PM EDT 03/19/2023 7:19 AM EDT Narrative Resulting Agency Comment Spec In Lab Kia Viramontes DO LAB SEND OUT ORDER JODIE [facility] [place] [address] * (ABNORMAL) FRANCISCO Ab by IFA (03/18/2023 2:14 PM EDT) FRANCISCO Ab Screen Test ? Result ?Flag ??Unit ??RefValue Antinuclear Ab, HEp-2 ?Positive 1:2560 ??@ ?<1:80 (Negative) ??Substrate, S ? ADDITIONAL INFORMATION --------- ?Method: Immunofluorescence using HEp-2 cellular substrate. ??FRANCISCO Titer: ? 1:2560 ??FRANCISCO Pattern: ? Speckled ?Test Performed by: ?[facility] ?[address] [place] [address] ?[place] Laborer: Raymond Chaudhry M.D. Ph.D.; CLIA# [id number] ([id number]) [facility] Blood 03/18/2023 2:14 PM EDT 03/18/2023 3:02 PM EDT Narrative Resulting Agency Comment Spec In Lab Kia Viramontes DO CHEMISTRY ORDERABL ES Performing Organization Address City/State/[facility] Co de Phone Number [facility] [place] [address] * Comprehensive metabolic panel (non-fasting) (03/18/2023 2:14 PM EDT) Glucose 93 65 - 199 mg/dL [facility] Comment:Diabetes: >=200 mg/d L plus symptoms Blood Urea Nitrogen 18 8 - 18 mg/dL [facility] Creatinine 0.99 0.70 - 1.20 mg/dL [facility] Sodium 141 135 - 145 mmol/L [facility] Potassium 4.5 3.5 - 5.0 mmol/L [facility] Comment: Please note: ??Patients with WBC >100,000 may have falsely elevated Potassium levels. ??For accurate Potassium quantification in these patients send serum separator tube (gold top) for subsequent determinations. ??Contact the Clinical Chemistry Laboratory if there are any questions. Chloride 106 98 - 107 mmol/L [facility] Carbon Dioxide 24 22 - 31 mmol/L [facility] Anion Gap 11 5 - 15 mmol/L [facility] Calcium 10.0 8.5 - 10.5 mg/dL [facility] Protein, Total 7.3 6.1 - 8.0 g/dL [facility] Albumin 4.3 3.2 - 5.2 g/dL [facility] Aspartate Aminotransferase 26 0 - 30 unit/L [facility] Alanine Aminotransferase 11 0 - 30 unit/L [facility] Alkaline Phosphatase 91 35 - 105 unit/L [facility] Bilirubin, Total 0.4 0.2 - 1.3 mg/dL [facility] Est Glomerular Filtration Rate 62 >=60 mL/min/1. 73 m?? [facility] Comment: This patient's estimated [...] Lab Kia Viramontes DO CHEMISTRY ORDERABL ES [facility] [place] [address] documented in this encounter Visit Diagnoses Diagnosis Positive FRANCISCO (antinuclear antibody) Other and unspecified nonspecific immunological findings documented in this encounter Care Teams Gourmet Coffee Attendant Relationship Specialty Start Date End Date Magdalena Acosta MD [address] [place] [address] PCP - General Family Medicine 02/05/23 documented as of this encounter
--- OUTSIDE RECORDS SUMMARY | 2024-06-27 15:20 | XMS_ITS | Encounter Summary ---
Author Organization [facility] Address [facility] [place] [address] Care Team Providers Care Patient Accounts Coordinator Name Role Phone Magdalena Acosta MD Primary Care Provider [phone] Encounter Details Date Type Department Care Team (Late st Contact Info) Description 04/27/2023 3:00 PM EDT Office [place] [address] Magdalena Peralta MD [facility] [place] [address] Mixed connective tissue disease Social History Tobacco [...] 1:5120 speckled; VIC negative; Myositis panel with OIL REFINERY OPERATOR ab 149.1 (positive); Anti U1RNP IgG [...] 11/02/2024 12:00 PM EDT Appointment [place] [address] 11/02/2024 1:00 PM EDT Office [place] [address] Magdalena Peralta MD [facility] [place] [address] 03/01/2025 4:15 PM EDT Office Visit Dermatology at [place] [address] [place] [address] Marek Bonilla MD [address], [place] [address] documented as of this encounter Visit Diagnoses Diagnosis Mixed connective tissue disease Other specified diffuse disease of connective tissue documented in this encounter Care Teams Patient Accounts Coordinator Relationship Specialty Start Date End Date Magdalena Acosta MD [address] [place] [address] PCP - General Family Medicine 02/05/23 documented as of this encounter
--- OUTSIDE RECORDS SUMMARY | 2024-06-27 15:20 | XMS_ITS | Encounter Summary ---
Author Organization [facility] [address] Care Team Providers Care Equipment Processor Name Role Phone Magdalena Acosta MD Primary Care Provider [phone] Encounter Details Date Type Department Care Team (Late st Contact Info) Description 05/08/2023 [place] [address] Luis Felipe Ott MD [facility] [place] [address] Social History Tobacco Use Types Packs/Day Years [...] 0426 Referring Provider: Nitesh Baltazar Patient Location: [facility] Presenting Symptoms per OSH: 67 year [...] diuresis with IV furosemide 20 x 1 ([id number]/47 at rheumatology appointment), SpO2 85% on RA -> 95% on 2L NC, HR 120s. Examination significant for decreased breath sounds at the bases. Pertinent Diagnostic Findings: CBC - Hgb 10.5 CMP - Cr 1.1 BNP 55696 HsTrop 1358 Lactate 1.6 D-dimer 1183, CTPE pending CXR demonstrated pulmonary vascular congestion US showed bilateral b lines Bedside echo reportedly similar to prior TTE for LV function OSH Interventions: ASA 324 Heparin gtt Plan: Transfer to [facility] [place] Above recommendations/plans are based on my conversation with the referring provider. I have not personally interviewed or examined this patient. Luis Felipe Ott MD Retail Assistant Manager Received a call from provider emergently at 715am. Mentating well and BP 87/53. HR 108 and diursingwell. They were about to start phenylephrine which I stressed was not a good option given concern for severe and increasing afterload. She is warm on exam, mentating and urinating and we do not need to amrit a BP if those things remain stable. Nioc Segura, PGY-6 Retail Assistant Manager [id number] documented in this encounter Plan of Treatment Upcoming Encounters Date Type Department Care Team (Late st Contact Info) Description 11/02/2024 12:00 PM EDT Appointment [place] [address] 11/02/2024 1:00 PM EDT Office [place] [address] [facility] [place] [address] 03/01/2025 4:15 PM EDT Office Visit Dermatology at [place] [address] [place] [address] Marek Bonilla MD [address], [place] [address] documented as of this encounter Visit Diagnoses Not on filedocumented in this encounter Care Teams Equipment Processor Relationship Specialty Start Date End Date Magdalena Acosta MD [address] [place] [address] PCP - General Family Medicine 02/05/23 documented as of this encounter
--- OUTSIDE RECORDS SUMMARY | 2024-06-27 15:20 | XMS_ITS | Encounter Summary ---
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 documented in this encounter Plan of Treatment Upcoming Encounters Date Type Department Care Team (Late st Contact Info) Description 11/02/2024 12:00 PM EDT Appointment [place] [address] 11/02/2024 1:00 PM EDT Office [place] [address] Magdalena Peralta MD [facility] [place] [address] 03/01/2025 4:15 PM EDT Office Visit Dermatology at [place] [address] [facility] [address] [place] [address] Marek Bonilla MD [address], [place] [address] documented as of this encounter Visit Diagnoses Not on filedocumented in this encounter Care Teams Advertising Teacher Relationship Specialty Start Date End Date Magdalena Acosta MD [address] [place] [address] PCP - General Family Medicine 02/05/23 documented as of this encounter
--- OUTSIDE RECORDS SUMMARY | 2024-06-27 15:20 | XMS_ITS | Encounter Summary ---
Author Organization [facility] [place] [address] Care Team Providers Care Digital Engineer Name Role Phone Magdalena Acosta MD Primary Care Provider [phone] Encounter Details Date Type Department Care Team [...] 11/02/2024 12:00 PM EDT Appoint[place] [address] 11/02/2024 1:00 PM EDT [place] [address] Magdalena Peralta MD [facility] [place] [address] 03/01/2025 4:15 PM EDT Office Visit Dermatology at [address] [place] [address] Marek Bonilla MD [address] [facility] [place] [address] documented as of this encounter Visit Diagnoses Not on filedocumented in this encounter Care Teams Digital Engineer Relationship Specialty Start Date End Date Magdalena Acosta MD [address] [place] [address] PCP - General Family Medicine 02/05/23 documented as of this encounter
--- OUTSIDE RECORDS SUMMARY | 2024-06-27 15:20 | XMS_ITS | Encounter Summary ---
Author Organization [place] [address] Care Team Providers Care Analysis Director Name Role Phone Magdalena Acosta MD [...] PM EDT Appointment [place] [address] 11/02/2024 1:00 PM EDT Office [place] [address] Magdalena Peralta MD [facility] [place] [address] 03/01/2025 4:15 PM EDT Office Visit Dermatology at [address] [place] [address] Marek Bonilla MD [address] [facility], [place] [address] documented as of this encounter Visit Diagnoses Not on filedocumented in this encounter Care Teams Analysis Director Relationship Specialty Start Date End Date Magdalena Acosta MD [address] [place] [address] PCP - General Family Medicine 02/05/23 documented as of this encounter
--- OUTSIDE RECORDS SUMMARY | 2024-06-27 15:20 | XMS_ITS | Encounter Summary ---
[place] [address] Care Team Providers Care Mobile Marketing Specialist Name Role Phone Magdalena Acosta MD Primary Care Provider [phone] Reason for Visit * Reason Comments Skin Lesion Encounter Details Date Type Department Care Team (Late st Contact Info) Description 04/20/2023 10:00 AM EDT Office Visit Dermatology at [address] [address] Marek Bonilla MD [address] [facility], [place] [address] Seborrheic keratosis Social History Tobacco Use Types [...] cutaneous and ocular 3. Previously told by checker cashier that she had corneal tears from her [...] 11/02/2024 12:00 PM EDT Appointment [place] [address] 11/02/2024 1:00 PM EDT Office [place] [address] Magdalena Peralta MD [facility] [place] [address] 03/01/2025 4:15 PM EDT Office Visit Dermatology at [address] [address] Marek Bonilla MD [address] [place] [address], [place] [address] documented as of this encounter Visit Diagnoses Diagnosis Seborrheic keratosis Other seborrheic keratosis documented in this encounter Care Teams Mobile Marketing Specialist Relationship Specialty Start Date End Date Magdalena Acosta MD [address] [place] [address] PCP - General Family Medicine 02/05/23 documented as of this encounter
--- OUTSIDE RECORDS SUMMARY | 2024-06-27 15:20 | XMS_ITS | Encounter Summary ---
Author Organization [facility] [place] [address] Care Team Providers Care Tube Cutter Operator Name Role Phone Magdalena Acosta MD Primary Care Provider [phone] Encounter Details Date Type Department Care Team [...] 11/02/2024 12:00 PM EDT Appointment [place] [address] 11/02/2024 1:00 PM EDT Office [place] [address] Magdalena Peralta MD [facility] [place] [address] 03/01/2025 4:15 PM EDT Office Visit Dermatology at [address] [place] [address] Marek Bonilla MD [address] [facility], [place] [address] documented as of this encounter Visit Diagnoses Not on filedocumented in this encounter Care Teams Tube Cutter Operator Relationship Specialty Start Date End Date Magdalena Acosta MD [address] [place] [address] PCP - General Family Medicine 02/05/23 documented as of this encounter
--- OUTSIDE RECORDS SUMMARY | 2024-06-27 15:20 | XMS_ITS | Encounter Summary ---
Author Organization [facility] [place] [address] Care Team Providers Care Magnetic Healer Name Role Phone Magdalena Acosta MD Primary Care Provider [phone] Encounter Details Date Type Department Care Team [...] 11/02/2024 12:00 PM EDT [place] [address] 11/02/2024 1:00 PM EDT [place] [address] Magdalena Peralta MD [facility] [place] [address] 03/01/2025 4:15 PM EDT Office Visit Dermatology at [address] [place] [address] Marek Bonilla MD [address] [facility] [place] [address] documented as of this encounter Visit Diagnoses Not on filedocumented in this encounter Care Teams Magnetic Healer Relationship Specialty Start Date End Date Magdalena Acosta MD [address] [place] [address] PCP - General Family Medicine 02/05/23 documented as of this encounter
--- OUTSIDE RECORDS SUMMARY | 2024-06-27 15:20 | XMS_ITS | Encounter Summary ---
Author Organization [facility] [place] [address] Care Team Providers Care Product Marketing Consultant Name Role Phone Magdalena Acosta MD Primary Care Provider [phone] Encounter Details Date Type Department Care Team [...] PM EDT Appointment [place] [address] 11/02/2024 1:00 PM EDT Office [place] [address] [facility] [place] [address] 03/01/2025 4:15 PM EDT Office Visit Dermatology at [address] [place] [phone] Marek Bonilla MD [address] [facility], [place] [address] documented as of this encounter Visit Diagnoses Not on filedocumented in this encounter Care Teams Product Marketing Consultant Relationship Specialty Start Date End Date Magdalena Acosta MD [address] [place] [address] PCP - General Family Medicine 02/05/23 documented as of this encounter
--- OUTSIDE RECORDS SUMMARY | 2024-06-27 15:21 | XMS_ITS | Encounter Summary ---
[place] [address] Care Team Providers Care Reproduction Order Processor Name Role Phone Junaid Deborah Shields APRN Primary Care Provider +1 [phone] Encounter Details Date Type Department Care Team (Late st Contact Info) Description 10/20/2016 11:20 AM EDT Office [place] [address] Alirio Esparza MD S/P AVR Social History [...] all of her postoperative tests done at [facility]. Her echo shows a well-seated valve. Her EF, for some reason, was read as in the 45% to 50% range. She had a normal EF to start. I think that will need to be repeated at [facility]. She has no perivalve leak. [...] should continue to see Dr. Burrell, her novelty chain maker at [facility]. cc: Dr. Burrell documented in this encounter Plan of Treatment Upcoming Encounters Date Type Department Care Team (Late st Contact Info) Description 11/02/2024 12:00 PM EDT Appointment [place] [address] 11/02/2024 1:00 PM EDT Office [place] [address] Magdalena Peralta MD [facility] [place] [address] 03/01/2025 4:15 PM EDT Office Visit Dermatology at [address] [place] [address] Marek Bonilla MD [address], [place] [address] documented as of this encounter Visit Diagnoses Diagnosis S/P AVR Heart valve replaced by other means documented in this encounter Care Teams Reproduction Order Processor Relationship Specialty Start Date End Date Deborah Quiroga, [employer] PCP - General Family Medicine 03/24/16 02/04/23 documented as of this encounter
--- OUTSIDE RECORDS SUMMARY | 2024-06-27 15:21 | XMS_ITS | Encounter Summary ---
Author Organization [facility] Address [facility] [place] [address] Care Team Providers Care Car Cleaner Name Role Phone Deborah Quiroga APRN Primary Care Provider [phone] Encounter Details Date Type Department Care Team (Late st Contact Info) Description 06/18/2017 11:00 AM EST Office Visit Hematology [place] [address] Markel Borjas MD [facility] [address] HEMATOLOGY [place] [address] Neutropenia, unspecified type Social History Tobacco Use [...] 06/18/2017 11:00 AM EST Hematology Outpatient Clinic [facility] [...] TOUCH PREP, CLOT SECTION, CORE ??BIOPSY); [OSR# [id number], COLLECTED 06/23/2016, 19 SLIDES]: ?1. ??Normocellular marrow [...] a clonal lymphoproliferative or myeloproliferative disorder (OSR# [id number]) Chromosome analysis on the marrow aspirate revealed [...] working the same job and participating in [employer] patients. Past Medical/Surgical History: 1. Leukopenia -element of neutropenia, as noted above 2. Aortic Stenosis -severe -AVR surgery 3. Hypercholesterolemia 4. Depression 5. Hypertension 6. 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 Extremities: No edema. Labs: Hgb= 13 Cuuz=289 ANC= 0.6 Imaging As above - reviewed [...] 11/02/2024 12:00 PM EDT Appointment [place] [address] 11/02/2024 1:00 PM EDT Office [place] [address] Magdalena Peralta MD [facility] [place] [address] 03/01/2025 4:15 PM EDT Office Visit Dermatology at [place] [address] [place] [address] Marek Bonilla MD [address], [place] A DERMATOLOGY [place], [place] [address] documented as of this encounter Visit Diagnoses Diagnosis Neutropenia, unspecified type documented in this encounter Care Teams Car Cleaner Relationship Specialty Start Date End Date Deborah Quiroga APRN PCP - General Family Medicine 03/24/16 02/04/23 documented as of this encounter
--- OUTSIDE RECORDS SUMMARY | 2024-06-27 15:21 | XMS_ITS | Encounter Summary ---
Author Organization [facility] Address [facility] Erika lópezsylvia [place] [address] Care Team Providers Care Aws Developer Name Role Phone Deborah Quiroga ANURAG Primary Care Provider +1 [phone] Encounter Details Date Type Department Care Team (Late st Contact Info) Description 01/13/2021 Refill Dermatology at [address] [place] [address] Taylor Malone, COSMETOLOGIST Social History Tobacco Use Types Packs/Day Years [...] 11/02/2024 12:00 PM EDT Appoint[place] [address] 11/02/2024 1:00 PM EDT Office [place] [address] Magdalena Peralta MD [facility] [place] [address] 03/01/2025 4:15 PM EDT Office Visit Dermatology at [address] [place] [address] Marek Bonilla MD [address], [place] [address] documented as of this encounter Visit Diagnoses Not on filedocumented in this encounter Care Teams Aws Developer Relationship Specialty Start Date End Date Deborah Quiroga APRN PCP - General Family Medicine 03/24/16 02/04/23 documented as of this encounter
--- OUTSIDE RECORDS SUMMARY | 2024-06-27 15:21 | XMS_ITS | Encounter Summary ---
Author Organization [facility] [place] [place] [address] Care Team Providers Care Recycle Driver Name Role Phone Ashley Quirogazac Shields APRN Primary Care Provider +1- [phone] Encounter Details Date Type Department Care Team (Late st Contact Info) Description 11/02/2022 Orders Only [place] [address] Emily Lyons PA [facility] [place] [address] Aortic valve stenosis, etiology of cardiac valve [...] 11/02/2024 12:00 PM EDT [place]oint[place] [address] 11/02/2024 1:00 PM EDT [place] [address] Magdalena Peralta MD [facility] RHEUMATOLOGY DEPT [place], [place] [address] 03/01/2025 4:15 PM EDT Office Visit Dermatology at [place] [address] [facility] [place] [address] Marek Bonilla MD [address], [place] [address] documented as of this encounter Visit Diagnoses Diagnosis Aortic valve stenosis, etiology of cardiac valve disease unspecified documented in this encounter Care Teams Recycle Driver Relationship Specialty Start Date End Date Deborah Quiroga APRN PCP - General Family Medicine 03/24/16 02/04/23 documented as of this encounter
--- OUTSIDE RECORDS SUMMARY | 2024-06-27 15:21 | XMS_ITS | Encounter Summary ---
Author Organization [facility] Address [facility] [place] [address] Care Team Providers Care Station Detective Name Role Phone Deborah Quiroga ANURAG Primary Care Provider +1 [phone] Encounter Details Date Type Department Care Team (Late st Contact Info) Description 06/18/2017 External Results Hematology [place] [address] Alexandrea Greenwood RN Neutropenia, unspecified [...] 11/02/2024 12:00 PM EDT Appointment [place] [address] 11/02/2024 1:00 PM EDT Office [place] [address] Magdalena Peralta MD [facility] [place] [address] 03/01/2025 4:15 PM EDT Office Visit Dermatology at [address] [address] Marek Bonilla MD [address], [place] [address] documented as of this encounter Procedures Procedure [...] type documented in this encounter Care Teams Station Detective Relationship Specialty Start Date End Date Deborah Quiroga, [employer] PCP - General Family Medicine 03/24/16 02/04/23 documented as of this encounter
--- OUTSIDE RECORDS SUMMARY | 2024-06-27 15:21 | XMS_ITS | Encounter Summary ---
[place] [address] Care Team Providers Care Drug Room Operator Name Role Phone Ashley Quirogan Cornelius ANURAG Primary Care Provider +1 [phone] Reason for Visit * Reason Comments Acrochordon Rosacea Encounter Details Date Type Department Care Team (Late st Contact Info) Description 12/05/2020 3:00 PM EDT Office Visit Dermatology at [address] [address] Marek Bonilla MD [address] [facility], [place] [address] Inflamed acrochordon Social History Tobacco Use Types [...] 12:00 PM EDT Appointment [place] [address] 11/02/2024 1:00 PM EDT Office [place] [address] Magdalena Peralta MD [facility] [place] [address] 03/01/2025 4:15 PM EDT Office Visit Dermatology at [place] [address] [place] [address] Marek Bonilla MD [address] [facility], [place] [address] documented as of this encounter Visit Diagnoses Diagnosis Inflamed acrochordon Unspecified hypertrophic and atrophic condition of skin documented in this encounter Care Teams Drug Room Operator Relationship Specialty Start Date End Date Deborah Quiroga APRN PCP - General Family Medicine 03/24/16 02/04/23 documented as of this encounter
--- OUTSIDE RECORDS SUMMARY | 2024-06-27 15:21 | XMS_ITS | Encounter Summary ---
[place] [address] Care Team Providers Care Perinatal Social Worker Name Role Phone Ashley Quirogan Cornelius ANURAG Primary Care Provider +1 [phone] Reason for Visit * Reason Onset Date Comments Medical Care Coordination 07/27/2017 Encounter Details Date Type Department Care Team (Late st Contact Info) Description 07/27/2017 Telephone Hematology [place] [address] Alexandrea Greenwood RN Medical Care Coordination Social [...] executive secretary: Injection/Infusion Referral Call placed to [facility] @ [phone] Spoke w/ MELTER LOADER Services to be provided for pt are: CBC/CMP DONE Q6 MONTHS X2 STARTING NOVEMBER 2017 TECH confirmed they would provide services to pt - I CALLED PT, LM. Pt orders faxed to [phone] documented in this encounter Plan of Treatment Upcoming Encounters Date Type Department Care Team (Late st Contact Info) Description 11/02/2024 12:00 PM EDT Appointment [place] [address] 11/02/2024 1:00 PM EDT Office [place] [address] Magdalena Peralta MD [facility] [place] [address] 03/01/2025 4:15 PM EDT Office Visit Dermatology at [place] [address] [facility] [place] [address] Marek Bonilla MD [address], [place] [address] documented as of this encounter Visit Diagnoses Not on filedocumented in this encounter Care Teams Perinatal Social Worker Relationship Specialty Start Date End Date Deborah Quiroga APRN PCP - General Family Medicine 03/24/16 02/04/23 documented as of this encounter
--- OUTSIDE RECORDS SUMMARY | 2024-06-27 15:21 | XMS_ITS | Encounter Summary ---
Author Organization [facility] Address [facility] [place] [address] Care Team Providers Care Cash Clerk Name Role Phone Junaid Deborah Shields APRN Primary Care Provider +1 [phone] Reason for Visit * Reason Comments Schedule Office Case Pain right leg Encounter Details Date Type Department Care Team (Late st Contact Info) Description 12/11/2016 9:00 AM EDT Office Visit H[place]ology [place] [address] Markel oBrjas MD [facility] [address] [place] [address] Neutropenia, unspecified type Social History Tobacco Use [...] EDT Hematology Outpatient Clinic [facility], [...] TOUCH PREP, CLOT SECTION, CORE ??BIOPSY); [OSR# [id number], COLLECTED 06/23/2016, 19 SLIDES]: ?1. ??Normocellular marrow [...] a clonal lymphoproliferative or myeloproliferative disorder (OSR# [id number]) Chromosome analysis on the marrow aspirate revealed [...] intact. Extremities: No edema. Labs: Hgb= 13 Jztb=641 ANC= 0.5 Imaging As above - reviewed [...] PM EDT Appoint[place] [address] 11/02/2024 1:00 PM EDT Office [place] [address] Magdalena Peralta MD [facility] [place] [address] 03/01/2025 4:15 PM EDT Office Visit Dermatology at [place] [address] [place] [address] Marek Bonilla MD [address] [facility], [place] [address] documented as of this encounter [...] documented in this encounter Care Teams Cash Clerk Relationship Specialty Start Date End Date Deborah Quiroga APRN PCP - General Family Medicine 03/24/16 02/04/23 documented as of this encounter
--- OUTSIDE RECORDS SUMMARY | 2024-06-27 15:21 | XMS_ITS | Encounter Summary ---
Author Organization [facility] [place] [address] Care Team Providers Care Machine Tailer Name Role Phone Winter Quiroga APRN Primary Care Provider +1- [phone] Encounter Details Date Type Department Care Team (Late st Contact Info) Description 06/05/2021 Interpretation Only [address] [address] Winter Quiroga APRN [address] [phone] Social History Tobacco Use Types Packs/Day Years [...] 12:00 PM EDT Appointment [place] [address] 11/02/2024 1:00 PM EDT Office [place] [address] Magdalena Peralta MD [facility] [place] [address] 03/01/2025 4:15 PM EDT Office Visit Dermatology at [place] [address] [place] [address] Marek Bonilla MD [address], [place] [address] documented as of this encounter Procedures Procedure Name Priority Date/Time Associated Diagnosis Comments MAMMO SCREENING CAD BILATERAL Routine 06/05/2021 11:42 AM EDT documented in this encounter Results * Mammo Screening Cad Bilateral (06/05/2021 11:42 AM EDT) PT CLASS O DH RAD ADMITDTTM DH RAD PT DH RAD MD INFO [id number]^EV ERETT^WINTER^E DH RAD EXAM DESC MADDSC^SCREEN MAMMO [...] questions please contact the health child care aide that requested your imaging first. ? Electronically signed by: Rocael Villatoro MD, [facility] ([phone]), at 06/05/2021 1:27 PM Narrative 06/05/2021 1:27 [...] have questions please contactthe health child care aide that requested your imaging first. Electronically signed by: Rocael Villatoro MD, [facility]([phone]), at 06/05/2021 1:27 PM Winter Quiroga APRN IMG MAMMO ORDERABLE S documented in this encounter Visit Diagnoses Not on filedocumented in this encounter Care Teams Machine Tailer Relationship Specialty Start Date End Date Winter Quiroga APRN PCP - General Family Medicine 03/24/16 02/04/23 documented as of this encounter
--- OUTSIDE RECORDS SUMMARY | 2024-06-27 15:21 | XMS_ITS | Encounter Summary ---
Author Organization [facility] [place] [address] Care Team Providers Care Community Case Manager Name Role Phone Ashley Quirogazac Shields APRN Primary Care Provider +1 [phone] Encounter Details Date Type Department Care Team [...] 11/02/2024 12:00 PM EDT Appointment [place] [address] 11/02/2024 1:00 PM EDT Office [place] [address] Magdalena Peralta MD [facility] [place] [address] 03/01/2025 4:15 PM EDT Office Visit Dermatology at [address] [place] [address] Marek Bonilla MD [address] [facility], [place] [address] documented as of this encounter Visit Diagnoses Not on filedocumented in this encounter Care Teams Community Case Manager Relationship Specialty Start Date End Date Deborah Quiroga APRN PCP - General Family Medicine 03/24/16 02/04/23 documented as of this encounter
--- OUTSIDE RECORDS SUMMARY | 2024-06-27 15:21 | XMS_ITS | Encounter Summary ---
Author Organization [facility] Address [facility] [place] [address] Care Team Providers Care Scrap Collector Name Role Phone Deborah Quiroga ANURAG Primary Care Provider +1 [phone] Encounter Details Date Type Department Care Team (Late st Contact Info) Description 07/21/2017 Orders Only Hematology [place] [address] Alexandrea Greenwood RN Other neutropenia Social History [...] Department Care Team (Late Contact Info) Description 11/02/2024 12:00 PM EDT Appointment [place] [address] 11/02/2024 1:00 PM EDT Office [place] [address] [facility] [place] [address] 03/01/2025 4:15 PM EDT Office Visit Dermatology at [address] [phone] Marek Bonilla MD [address], [place] [address] documented as of this encounter Visit Diagnoses Diagnosis Other neutropenia documented in this encounter Care Teams Scrap Collector Relationship Specialty Start Date End Date Deborah Quiroga APRN PCP - General Family Medicine 03/24/16 02/04/23 documented as of this encounter
--- OUTSIDE RECORDS SUMMARY | 2024-06-27 15:21 | XMS_ITS | Encounter Summary ---
Author Organization [facility] Address [facility] [place] [address] Care Team Providers Care Career Technology Teacher Name Role Phone Deborah Quiroga APRN Primary Care Provider +1 [phone] Reason for Visit * Reason Comments Follow-up Encounter Details Date Type Department Care Team (Late st Contact Info) Description 07/03/2022 1:30 PM EST Office Visit Hematology [place] [address] Markel Borjas MD [facility] DR HEMATOLOGY [place] [address] Consuelo Sommer APRN [facility] DR HEMAT[place]Y [place] [address] Chronic idiopathic neutropenia; Dysuria Social History Tobacco [...] 07/03/2022 1:30 PM EST Hematology Outpatient Clinic [facility] Hematology Outpatient Consult Note CC: [...] CT Surgery (Dr. Esparza) and Cardiology (Dr. Escboedo) over the past few months with severe [...] TOUCH PREP, CLOT SECTION, CORE ??BIOPSY); [OSR# [id number], COLLECTED 06/23/2016, 19 SLIDES]: ?1. 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 Extremities: No edema. Labs: Hgb= 11.7 Bozg=164 ANC= 2.5 Imaging As above - reviewed [...] 11/02/2024 12:00 PM EDT [place] [address] 11/02/2024 1:00 PM EDT Office [place] [address] Magdalena Peralta MD [facility] [place] [address] 03/01/2025 4:15 PM EDT Office Visit Dermatology at [place] [address] [facility] [place] [address] Marek Bonilla MD [address], [place] [address] documented as of this encounter Procedures Procedure [...] - GEN ERAL ORDERABLES Performing Organization Address City/[facility]/ZIP Co de Phone Number [facility] [place] [address] * (ABNORMAL) Urinalysis Microscopic Exam (07/03/2022 2:00 [...] Borjas MD URINE ORDERABLES Performing Organization Address City/[facility]/ZIP Co de Phone Number [facility] [place] [address] * (ABNORMAL) Urinalysis with reflex Culture (07/03/2022 [...] LABORATORY Leukocytes, Urine Dipstick Small(A) Negative [facility] LABORATORY Appearance, Urine Dipstick Clear Clear [facility] Specific [place] Urine Automated 1.022 1.005 - 1.030 [facility] Color, Urine Dipstick Yellow Yellow [facility] Reflex to Culture Yes [facility] Clean Catch Urine 07/03/2022 2:00 PM EST 07/03/2022 2:29 PM EST Narrative Resulting Agency Comment Spec In Lab Markel Borjas MD URINE ORDERABLES [facility] [place] [address] * (ABNORMAL) Comprehensive metabolic panel (non-fasting) (07/03/2022 [...] CHEMISTRY ORDERABL ES [facility] [place] [address] documented in this encounter Visit Diagnoses Diagnosis Chronic idiopathic neutropenia Other neutropenia Dysuria documented in this encounter Care Teams Career Technology Teacher Relationship Specialty Start Date End Date Deborah Quiroga, UPHOLSTERY RESTORER PCP - General Family Medicine 03/24/16 02/04/23 documented as of this encounter
--- OUTSIDE RECORDS SUMMARY | 2024-06-27 15:21 | XMS_ITS | Encounter Summary ---
Author Organization [facility] Address [facility] [place] [address] Care Team Providers Care Drug Safety Scientist Name Role Phone Junaid Deborah Shields APRN Primary Care Provider +1 [phone] Reason for Referral * Consultation (Routine) - Closed Specialty Diagnoses / Procedures Referred By Contac t Referred To Contact Neurology Diagnoses Neck pain Popeye Rogers MD [facility] [place] [address] Kyra Haas MD [facility] [address] [address] Referral ID Status Reason Start Date Expiration Date V isits Requested Visits Authorized [id number] Closed Consult, Test & Treat 06/29/2022 06/29/2023 1 1 Reason for Visit * Reason Comments Neck Pain Weak in both arms, p ain and tingling in arms and hands Encounter Details Date Type Department Care Team (Late st Contact Info) Description 06/29/2022 10:20 AM EST Office Visit [place] [address] Popeye Rogers MD [facility] [place] [address] Neck pain Social History Tobacco Use Types [...] have EMG and nerve conduction studies in [place] that showed carpal tunnel syndrome. I do not have a copy of that report. documented in this encounter Plan of Treatment Upcoming Encounters Date Type Department Care Team (Late st Contact Info) Description 11/02/2024 12:00 PM EDT [place] [address] 11/02/2024 1:00 PM EDT Office [place] [address] Magdalena Peralta MD [facility] [place] [address] 03/01/2025 4:15 PM EDT Office Visit Dermatology at [address] [place] [address] Marek Bonilla MD [address] [facility], [place] [address] Scheduled Referrals Name Type Priority Associated Diagnoses Orde r Schedule Referral to Neurology Outpatient Referral Routine Neck pain Ordered: 06/29/2022 documented as of this encounter Visit Diagnoses Diagnosis Neck pain Cervicalgia documented in this encounter Care Teams Drug Safety Scientist Relationship Specialty Start Date End Date Deborah Quiroga APRN PCP - General Family Medicine 03/24/16 02/04/23 documented as of this encounter
--- OUTSIDE RECORDS SUMMARY | 2024-06-27 15:21 | XMS_ITS | Encounter Summary ---
Author Organization [facility] [place] [address] Care Team Providers Care Production Truck Driver Name Role Phone Deborah Quiroga APRN Primary Care Provider +1- [phone] Encounter Details Date Type Department Care Team (Late st Contact Info) Description 06/08/2022 Ancillary Procedure Radiology Library [place] [phone] Deborah Quiroga APRN [address] [place] [phone] Social History Tobacco Use Types Packs/Day [...] 11/02/2024 12:00 PM EDT Appointment [place] [address] 11/02/2024 1:00 PM EDT Office [place] [address] Magdalena Peralta MD [facility] RHEUMATOLOGY DEPT [place], [place] [phone] 03/01/2025 4:15 PM EDT Office Visit Dermatology at [place] [address] [place] [address] Marek Bonilla MD [address], [place] [address] documented as of this encounter Procedures Procedure Name Priority Date/Time Associated Diagnosis Comments FILM LIBRARY STORAGE ONLY DX SPINE Routine 06/08/2022 12:00 AM EST documented in this encounter Results * Film Library- Storage Only DX Spine (06/08/2022 12:00 AM EST) Narrative [facility] - 06/18/2022 10:57 AM EST This exam is auto-finalizing. It's purpose is for storage only. Deborah Quiroga APRN IMG FILM LIBRARY OR DERABLES Performing Organization Address City/State/[facility] de Phone Number [place], [place] documented in this encounter Visit Diagnoses Not on filedocumented in this encounter Care Teams Production Truck Driver Relationship Specialty Start Date End Date Deborah Quiroga APRN PCP - General Family Medicine 03/24/16 02/04/23 documented as of this encounter
--- OUTSIDE RECORDS SUMMARY | 2024-06-27 15:21 | XMS_ITS | Encounter Summary ---
Author Organization [facility] [address] Care Team Providers Care Search Engineer Name Role Phone Winter Quiroga APRN Primary Care Provider +1- [phone] Encounter Details Date Type Department Care Team (Late st Contact Info) Description 06/05/2021 Interpretation Only [address] [phone] Winter Quiroga APRN [address] [phone] Social History Tobacco Use Types Packs/Day Years [...] PM EDT [place] [phone] 11/02/2024 1:00 PM EDT [place] [address] Magdalena Peralta MD [facility] [place] [address] 03/01/2025 4:15 PM EDT Office Visit Dermatology at [place] [address] [address] Marek Bonilla MD [address], [place] [address] documented as of this encounter Procedures Procedure Name Priority Date/Time Associated Diagnosis Comments DXA CENTRAL SPINE, HIP, AND/OR WHOLE BODY (GENERIC) Routine 06/05/2021 11:58 AM EDT documented in this encounter Results * DXA Central Spine, Hip, and/or Whole Body (Generic) (06/05/2021 11:58 AM EDT) PT CLASS O RAD ADMITDTTM RAD PT RAD INFO [id number]^E VERETT^WINTER ^E RAD EXAM DESC XDXAC^DEXA SCAN [...] questions please contact the health pet care technician that requested your imaging first. [...] have questions please contactthe health pet care technician that requested your imaging first. Winter LLAMAS DEXA ORDERABLES documented in this encounter Visit Diagnoses Not on filedocumented in this encounter Care Teams Search Engineer Relationship Specialty Start Date End Date Winter Quiroga APRN PCP - General Family Medicine 03/24/16 02/04/23 documented as of this encounter
--- OUTSIDE RECORDS SUMMARY | 2024-06-27 15:21 | XMS_ITS | Encounter Summary ---
[place] [address] Care Team Providers Care Internet E Commerce Specialist Name Role Phone Junaid Deborah Shields APRN Primary Care Provider [phone] Reason for Visit * Reason Comments Follow-up Encounter Details Date Type Department Care Team (Late st Contact Info) Description 01/10/2021 4:30 PM EDT Office Visit Dermatology at [place] [address] [place] [phone] Marek Bonilla MD [address] [facility], [address] DERMATOLOGY [place], [place] [phone] Rosacea Social History Tobacco Use Types Packs/Day [...] cutaneous and ocular 2. Previously told by billing associate that she had corneal tears from [...] 3 refills. Will call this in her [place] pharmacy in [place] 3. Continue metronidazole 0.75% gel applying once [...] 11/02/2024 12:00 PM EDT [place] [address] 11/02/2024 1:00 PM EDT [place] [address] [facility] [place] [address] 03/01/2025 4:15 PM EDT Office Visit Dermatology at [place] [address] [place] [address] Marek Bonilla MD [address], [place] [address] documented as of this encounter Visit Diagnoses Diagnosis Rosacea documented in this encounter Care Teams Internet E Commerce Specialist Relationship Specialty Start Date End Date Deborah Quiroga APRN PCP - General Family Medicine 03/24/16 02/04/23 documented as of this encounter
--- OUTSIDE RECORDS SUMMARY | 2024-06-27 15:21 | XMS_ITS | Encounter Summary ---
Author Organization [facility] [place] [address] Care Team Providers Care Field Specialist Name Role Phone Deborah Quiroga APRN Primary Care Provider Encounter Details Date Type Department Care Team (Late st Contact Info) Description 11/09/2022 11:30 AM EDT - 11/09/2022 12:30 PM EDT Surgery [place] [address] Nitesh Escobedo MD [facility] [place] [address] CARDIAC CATHETERIZATION Social History Tobacco Use Types [...] Center 02/05/2023 2:30 PM Marek Bonilla MD [facility] New Medications to be Picked Up None For questions regarding this document or issues relating to this hospitalization on the Medical Service, please contact your inpatient physician through the [facility] Advertising Rep . Issues afterhours and on weekends will be handled by the Hospitalist staff on-call. * Attachments The following attachments cannot be sent through Care Everywhere. * Coronary Angiogram: Post-op (Nigerian) * Right Heart Catheterization: Pulmonary Artery Catheterization: Post-op (Nigerian) documented in this encounter Medications at Time of Discharge Medication Sig Dispensed Refills Start Date End Date nystatin (MYCOSTATIN) 100,000 unit/gram Powder Apply topically 2 times daily as needed. 10/22/2022 [employer] Verio test strips Strip USE DAILY 01/03/2022 [employer] Delica Plus Lancet 33 gauge Misc USE [...] - 11/09/2022 11:20 AM EDT . [facility] Interventional Cardiology Adult Pre-Procedure H&P Update: Cardiac Catheterization Purnima Thacker [id number] 1955 Chief Complaint: BONILLA HPI: Purnima Thacker [...] MD Interventional Cardiology 11/09/22 11:43 AM [facility] Pager: [phone] documented in this encounter Plan of Treatment Upcoming Encounters Date Type Department Care Team (Late st Contact Info) Description 11/02/2024 12:00 PM EDT Appointment [place] [address] 11/02/2024 1:00 PM EDT Office [place] [address] Magdalena Peralta MD [facility] [place] [address] 03/01/2025 4:15 PM EDT Office Visit Dermatology at [place] [address] [place] [address] Marek Bonilla MD [address], [place] [address] documented as of this encounter Procedures Procedure Name Priority Date/Time Associated Diagnosis Comments CARDIAC CATHETERIZATION Routine 11/10/19 1:05 PM EDT Aortic valve stenosis, etiology of cardiac valve disease unspecified Cath Plmt Left Heart Cath & Arts W/Inj & Angio Img S&I ([id number]) 11/09/2022 11:51 AM EDT Aortic valve stenosis, etiology of cardiac valve disease unspecified EKG 12-LEAD Routine 11/09/2022 11:17 AM EDT Aortic valve stenosis, etiology of cardiac valve disease unspecified documented in this encounter Results * CARDIAC CATHETERIZATION (11/09/2022 1:05 PM EDT) Anatomical Region Laterality Modality Other Narrative 11/09/2022 2:01 PM EDT ?[facility] ? Cardiac Catheterization/Intervention Report ? Patient Name: Kirstie, Purnima M. ? Procedure Date: 11/09/2022 ? A #: [id number] ? Primary Physician: Nitesh Escobedo ? Case #: [id number] ? File Name: [id number] ? Catheterization Order Number: [id number] ? [facility] ? Final Report [place], [place] ? Patient Name: ? Purnima M. Kirstie ? ID#: ?[id number] ? : ?1955 ? Procedure Date: ? November 09, 2022 ? Case #: ? [id number] ? Room: ? 1 ? Case Physician: [...] was designated as ASA Class III. The HA clinical frailty scale ?is 4: Vulnerable. ? [...] (Bezet) 457 ms MUSE SYSTEM Calculated P [place] 44 degrees MUSE SYSTEM Calculated R [place] 33 degrees MUSE SYSTEM Calculated T [place] 30 degrees MUSE SYSTEM INTERPRETATION Sinus rhythm Occasional Premature ventricular complexes Otherwise normal ECG When compared with ECG of 21-SEP-2016 12:26, Premature ventricular complexes are now Present MI interval has decreased Nonspecific T wave abnormality has replaced inverted T waves in Inferior leads I personally reviewed the tracing and edited the fellows interpretation Confirmed by fellow MD Anitha, Carissa ([id number]) on 11/09/2022 6:17:28 PM Confirmed by Elsa [...] MD) documented in this encounter Care Teams Field Specialist Relationship Specialty Start Date End Date Deborah Quiroga, ANURAG PCP - General Family Medicine 03/24/16 02/04/23 documented as of this encounter
--- OUTSIDE RECORDS SUMMARY | 2024-06-27 15:21 | XMS_ITS | Encounter Summary ---
[place] [address] Care Team Providers Care Urgent Care Physician Assistant Name Role Phone Deborah Quiroga APRN Primary Care Provider [phone] Reason for Referral * Consultation (Routine) - Closed Specialty Diagnoses / Procedures Referred By Contac t Referred To Contact Rheumatology Diagnoses Positive FRANCISCO (antinuclear antibody) Arthralgia, unspecified joint Sandy Wu APRN [address] [place] [address] [facility] Rhe[facility] [address] [place] [phone] Referral ID Status Reason Start Date Expiration Date V isits Requested Visits Authorized [id number] Closed Consult, Test & Treat PCP Updated and/or Approved 01/01/2022 01/01/2023 6 6 Encounter Details Date Type Department Care Team (Latest Contact Info) Description 01/01/2022 Transcribe Orders eDH Incoming Referrals [phone] Sandy Wu APRN [address] [place], [place] [phone] Positive FRANCISCO (antinuclear antibody); Arthralgia, unspecified joint [...] 11/02/2024 12:00 PM EDT [place]oint[place] [address] 11/02/2024 1:00 PM EDT Office [place] [address] Magdalena Peralta MD [facility] [address] [place] [address] 03/01/2025 4:15 PM EDT Office Visit Dermatology at [place] [address] [facility] [place] [address] Marek Bonilla MD [address], [place] [address] Scheduled Referrals Name Type Priority Associated Diagnoses Orde r Schedule Referral to Rheumatology Outpatient Referral Routine Positive FRANCISCO (antinuclear antibody) Arthralgia, unspecified joint Ordered: 01/01/2022 documented as of this encounter Visit Diagnoses Diagnosis Positive FRANCISCO (antinuclear antibody) Other and unspecified nonspecific immunological findings Arthralgia, unspecified joint documented in this encounter Care Teams Urgent Care Physician Assistant Relationship Specialty Start Date End Date Deborah Quiroga APRN PCP - General Family Medicine 03/24/16 02/04/23 documented as of this encounter
--- OUTSIDE RECORDS SUMMARY | 2024-06-27 15:21 | XMS_ITS | Encounter Summary ---
Author Organization [facility] Address [facility] [place] [address] Care Team Providers Care Triple Valve Tester Name Role Phone Deborah Quiroga APRN Primary Care Provider [phone] Encounter Details Date Type Department Care Team (Late st Contact Info) Description 03/01/2020 11:30 AM EDT Office Visit Hematology [place] [phone] Patrick Borjas MD [facility] [address] HEMATOLOG[place] [address] Neutropenia, unspecified type Social History Tobacco Use [...] 03/01/2020 11:30 AM EDT Hematology Outpatient Clinic [facility] [...] TOUCH PREP, CLOT SECTION, CORE ??BIOPSY); [OSR# [id number], COLLECTED 06/23/2016, 19 SLIDES]: ?1. 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 Extremities: No edema. Labs: Hgb= 12.4 Vodi=891 ANC= 2.5 Imaging As above - reviewed [...] 11/02/2024 12:00 PM EDT Appointment [place] [address] 11/02/2024 1:00 PM EDT Office Visit Rheumatology at [place] [phone] Magdalena Peralta MD [facility] [place] [address] 03/01/2025 4:15 PM EDT Office Visit Dermatology at [address] [place] [address] Marek Bonilla MD [address] [facility], [address] DERMATOLOGY [place], [place] [address] documented as of this encounter Visit Diagnoses Diagnosis Neutropenia, unspecified type documented in this encounter Care Teams Triple Valve Tester Relationship Specialty Start Date End Date Deborah Quiroga APRN PCP - General Family Medicine 03/24/16 02/04/23 documented as of this encounter
--- OUTSIDE RECORDS SUMMARY | 2024-06-27 15:21 | XMS_ITS | Encounter Summary ---
[place] [address] Care Team Providers Care Dental Billing Specialist Name Role Phone Junaid Deborah Shields APRN Primary Care Provider [phone] Reason for Visit * Reason Comments Annual Exam Encounter Details Date Type Department Care Team (Late st Contact Info) Description 01/09/2022 3:15 PM EDT Office Visit Dermatology at [address] [phone] Marek Bonilla MD [address] [facility], [address] [place] DERMATOLOGY [place], [place] [address] Rosacea Social History Tobacco Use Types Packs/Day [...] cutaneous and ocular 2. Previously told by web production artist that she had corneal tears from her [...] refills. We will call this into her [facility] pharmacy in [place] 3. Continue metronidazole 0.75% gel applying every other day after washing as needed. We will give her 45 g with 5 refills. 4. Return to clinic in a year for repeat check CC: Deborah Quiroga APRN documented in this encounter Plan of Treatment Upcoming Encounters Date Type Department Care Team (Late st Contact Info) Description 11/02/2024 12:00 PM EDT [place] [address] 11/02/2024 1:00 PM EDT [place] [address] Magdalena Peralta MD [facility] [place] [address] 03/01/2025 4:15 PM EDT Office Visit Dermatology at [place] [address] [facility] [place] [address] Marek Bonilla MD [address] [facility], [address] DERMATOLOGY [place], [place] [address] documented as of this encounter Visit Diagnoses Diagnosis Rosacea documented in this encounter Care Teams Dental Billing Specialist Relationship Specialty Start Date End Date Deborah Quiroga APRN PCP - General Family Medicine 03/24/16 02/04/23 documented as of this encounter
--- OUTSIDE RECORDS SUMMARY | 2024-06-27 15:21 | XMS_ITS | Encounter Summary ---
Author Organization [facility] Address [facility] [place] [address] Care Team Providers Care Bi Report Developer Name Role Phone Deborah Quiroga APRN Primary Care Provider [phone] Encounter Details Date Type Department Care Team (Latest Contact Info) Description 10/14/2016 - 10/14/2016 11:59 PM EDT Hospital Encounter Radiology Library at [facility] [place] [address] Alirio Esparza MD Pain Discharge Disposition: Home [...] experiencing pain 1-1010.). 30 tablet 5 09/25/2016 oxyCODONE (ROXICODONE) 5 [...] 11/02/2024 12:00 PM EDT Appointment [place] [address] 11/02/2024 1:00 PM EDT Office [place] [address] Magdalena Peralta MD [facility] [place] [address] 03/01/2025 4:15 PM EDT Office Visit Dermatology at [address] [place] [address] Marek Bonilla MD [address] [place] [address], [place] [address] documented as of this encounter Procedures Procedure Name Priority Date/Time Associated Diagnosis Comments FILM LIBRARY STORAGE ONLY DX CHEST Routine 10/14/2016 12:00 AM EDT Pain documented in this encounter Results * Film Library- Storage Only DX Chest (10/14/2016 12:00 AM EDT) Narrative [facility] - 10/14/2016 5:16 PM EDT This exam is for storage only and is auto-finalizing. Alirio Esparza MD IMG FILM LIBRARY OR DERABLES [place], [place] documented in this encounter Visit Diagnoses Diagnosis Pain Generalized pain documented in this encounter Care Teams Bi Report Developer Relationship Specialty Start Date End Date Deborah Quiroga, STAMP CLASSIFIER PCP - General Family Medicine 03/24/16 02/04/23 documented as of this encounter
--- OUTSIDE RECORDS SUMMARY | 2024-06-27 15:21 | XMS_ITS | Encounter Summary ---
Author Organization [facility] [place] [address] Care Team Providers Care Wood Heel Back Liner Name Role Phone Deborah Quiroga APRN Primary Care Provider [phone]- [phone] Reason for Referral * Consultation (Routine) - Closed Specialty Diagnoses / Procedures Referred By Crispin maxwell Referred To Contact Neurology Diagnoses Polyneuropathy Deborah Quiroga APRN [address] [facility] [address] [place] [address] [facility] [address] [place] [phone] Referral ID Status Reason Start Date Expiration Date V isits Requested Visits Authorized [id number] Closed Consult, Test & Treat 10/29/2022 10/29/2023 1 1 Encounter Details Date Type Department Care Team (Latest Contact Info) Description 10/29/2022 Transcribe Orders eDH Incoming Referrals [phone] Deborah Quiroga APRN [address] [facility] [address] [place] [address] Polyneuropathy (Primary Dx) Social History [...] PM EDT Appointment [place] [address] 11/02/2024 1:00 PM EDT Office [place] [address] Magdalena Peralta MD [facility] [place] [address] 03/01/2025 4:15 PM EDT Office Visit Dermatology at [place] [address] [place] [address] Marek Bonilla MD [address], [address] [place] [address] Scheduled Referrals Name Type Priority Associated Diagnoses Orde r Schedule Referral to Neurology Outpatient Referral Routine Polyneuropathy Ordered: 10/29/2022 documented as of this encounter Visit Diagnoses Diagnosis Polyneuropathy- Primary Unspecified hereditary and idiopathic peripheral neuropathy documented in this encounter Care Teams Wood Heel Back Liner Relationship Specialty Start Date End Date Deborah Quiroga APRN PCP - General Family Medicine 03/24/16 02/04/23 documented as of this encounter
--- OUTSIDE RECORDS SUMMARY | 2024-06-27 15:21 | XMS_ITS | Encounter Summary ---
Author Organization [facility] Address [facility] [place] [address] Care Team Providers Care Lithographic Camera Operator Name Role Phone Deborah Quiroga APRN Primary Care Provider [phone]- [phone] Encounter Details Date Type Department Care Team (Latest Contact Info) Description 07/03/2022 1:36 PM EST - 07/03/2022 11:59 PM EST Hospital Encounter H[place]ology [place] [address] Discharge Disposition: Home Social History Tobacco Use [...] 11/02/2024 12:00 PM EDT [place] [address] 11/02/2024 1:00 PM EDT Office [place] [address] Magdalena Peralta MD [facility] [place] [address] 03/01/2025 4:15 PM EDT Office Visit Dermatology at [place] [address] [facility] [place] [address] Marek Bonilla MD [address], [place] [place] DERMATOLOGY [place], [place] [address] documented as of this encounter Procedures Procedure [...] MD CHEMISTRY ORDERABL ES Performing Organization Address City/[facility]/ZIP Co de Phone Number [facility] [place] [address] * Vitamin B12 (07/03/2022 1:59 PM EST) Vitamin B12 449 232 - 1,245 pg/mL [facility] Blood Venous Draw / Unknown 07/03/2022 1:59 PM EST 07/03/2022 2:13 PM EST Narrative Resulting Agency Comment Spec In Lab Markel Borjas MD CHEMISTRY ORDERABL ES Performing Organization Address City/[facility]/ZIP Co de Phone Number [facility] [place] [address] documented in this encounter Visit Diagnoses Not on filedocumented in this encounter Care Teams Lithographic Camera Operator Relationship Specialty Start Date End Date Deborah Quiroga APRN PCP - General Family Medicine 03/24/16 02/04/23 documented as of this encounter
--- OUTSIDE RECORDS SUMMARY | 2024-06-27 15:21 | XMS_ITS | Encounter Summary ---
Author Organization [facility] [place] [address] Care Team Providers Care Java Application Engineer Name Role Phone Ashley Quirogazac Shields APRN Primary Care Provider [phone] Encounter Details Date Type Department Care Team [...] 11/02/2024 12:00 PM EDT Appointment [place] [address] 11/02/2024 1:00 PM EDT Office [place] [address] Magdalena Peralta MD [facility] [place] [address] 03/01/2025 4:15 PM EDT Office Visit Dermatology at [address] [place] [address] Marek Bonilla MD [address] [facility], [place] [address] documented as of this encounter Visit Diagnoses Not on filedocumented in this encounter Care Teams Java Application Engineer Relationship Specialty Start Date End Date Deborah Quiroga APRN PCP - General Family Medicine 03/24/16 02/04/23 documented as of this encounter
--- OUTSIDE RECORDS SUMMARY | 2024-06-27 15:21 | XMS_ITS | Encounter Summary ---
Author Organization [facility] Address [facility] [place] [address] Care Team Providers Care Chemical Research Worker Name Role Phone Deborah Quiroga ANURAG Primary Care Provider [phone] Encounter Details Date Type Department Care Team (Late st Contact Info) Description 12/04/2016 External Results Hematology and Oncology at [place] [phone] Teresa Dodson, RN Social History Tobacco Use [...] 11/02/2024 12:00 PM EDT Appointment Pulmonology at [place] [phone] 11/02/2024 1:00 PM EDT Office Visit [place] [address] Magdalena Peralta MD [facility] [address] 03/01/2025 4:15 PM EDT Office Visit Dermatology at [address] [phone] Marek Bonilla MD [address] [place] [address], [place] [address] documented as of this encounter Procedures Procedure Name Priority Date/Time Associated Diagnosis Comments CBC (WITH DIFF) Routine 12/03/2016 11:35 AM EDT COMPREHENSIVE METABOLIC PANEL Routine 12/03/2016 11:35 AM EDT documented in this encounter Results * (ABNORMAL) Comprehensive metabolic panel (non-fasting) (12/03/2016 11:35 AM EDT) Glucose 85(Construction Producer al Lab) Blood Urea Nitrogen 11(Construction Producer al Lab) Creatinine 0.93(Exte rnal Lab) Sodium 140(Exter nal Lab) Potassium 4.2(Exter nal Lab) Chloride 104(Exter nal Lab) Calcium 10.0(Exte rnal Lab) Protein, Total 8.1(Exter nal Lab) Albumin 3.5(Exter nal Lab) Bilirubin, Total 0.25(Exte rnal Lab) Alkaline Phosphatase 96(Construction Producer al Lab) Aspartate Aminotransferase 18(Construction Producer al Lab) Alanine Aminotransferase 21(Construction Producer al Lab) Blood specimen (specimen) 12/03/2016 11:35 AM EDT Historical Provider CHEMISTRY ORDERAB LES * (ABNORMAL) CBC (with Diff) (12/03/2016 11:35 AM EDT) White Blood Cell 1.61(EXTER NAL/ABN) 4.4 - 10.8 Hemoglobin 13.0(Exter nal Lab) Hematocrit 39.8(Exter nal Lab) Platelet 248(Construction Producer al Lab) Neutrophil Absolute (ANC) - Automated 0.5(RODDING ANODE WORKER AL/ABN) Blood specimen (specimen) 12/03/2016 11:35 AM EDT Historical Provider HEMATOLOGY ORDERA BLES documented in this encounter Visit Diagnoses Not on filedocumented in this encounter Care Teams Chemical Research Worker Relationship Specialty Start Date End Date Deborah Quiroga APRN PCP - General Family Medicine 03/24/16 02/04/23 documented as of this encounter
--- OUTSIDE RECORDS SUMMARY | 2024-06-27 15:21 | XMS_ITS | Encounter Summary ---
Author Organization [facility] Address [facility] Erika lópez[place]yl[place] [address] Care Team Providers Care Master Barber Name Role Phone Deborah Quiroga APRN Primary Care Provider [phone] Encounter Details Date Type Department Care Team (Late st Contact Info) Description 01/09/2022 Refill Dermatology at [address] [place] [address] Lupe Connor RN Social History Tobacco [...] 11/02/2024 12:00 PM EDT Appointment [place] [phone] 11/02/2024 1:00 PM EDT Office [place] [address] Magdalena Peralta MD [facility] [place] [address] 03/01/2025 4:15 PM EDT Office Visit Dermatology at [address] [place] [address] Marek Bonilla MD [address], [place] [address] documented as of this encounter Visit Diagnoses Not on filedocumented in this encounter Care Teams Master Barber Relationship Specialty Start Date End Date Deborah Quiroga APRN PCP - General Family Medicine 03/24/16 02/04/23 documented as of this encounter
--- OUTSIDE RECORDS SUMMARY | 2024-06-27 15:21 | XMS_ITS | Encounter Summary ---
Author Organization [facility] Address [facility] [place] [address] Care Team Providers Care Endorsement Clerk Name Role Phone Deborah Quiroga APRN Primary Care Provider [phone] Reason for Visit * Consultation (Routine) - Closed Specialty Diagnoses / Procedures Referred By Contkrystle t Referred To Contact Rheumatology Diagnoses Positive FRANCISCO (antinuclear antibody) Arthralgia, unspecified joint Sandy Wu APRN [address] [place] [address] [facility] Rheumatology [address] [place] [address] Referral ID Status Reason Start Date Expiration Date V isits Requested Visits Authorized [id number] Closed Consult, Test & Treat PCP Updated and/or Approved 01/01/2022 01/01/2023 6 6 Encounter Details Date Type Department Care Team (Latest Contact Info) Description 01/20/2022 10:00 AM EDT Office [place] [address] Raymond Loredo MD [facility] [place] [address] Rosacea; Raynaud's phenomenon without gangrene; [...] over radiocarpal or ulnocarpal joints. Hands: Normal portable machine sander and claw. SJC/TJC 0/0. Hips: Full motion, [...] 11/02/2024 12:00 PM EDT Appointment [place] [address] 11/02/2024 1:00 PM EDT Office [place] [address] Magdalena Peralta MD [facility] DR [place] [address] 03/01/2025 4:15 PM EDT Office Visit Dermatology at [address] [place] [address] Marek Bonilla MD [address], [place] [address] Scheduled Referrals Name Type Priority Associated Diagnoses [...] syndrome documented in this encounter Care Teams Endorsement Clerk Relationship Specialty Start Date End Date Deborah Quiroga, SENIOR COMMERCIAL LOAN OFFICER PCP - General Family Medicine 03/24/16 02/04/23 documented as of this encounter
--- OUTSIDE RECORDS SUMMARY | 2024-06-27 15:21 | XMS_ITS | Encounter Summary ---
Author Organization [facility] [place] [address] Care Team Providers Care Monogram And Letter Paster Name Role Phone Ashley Quirogan [place] ANURAG Primary Care Provider [phone] Reason for Visit * Reason Comments Skin Check Encounter Details Date Type Department Care Team (Late st Contact Info) Description 11/11/2020 10:45 AM EDT Office Visit Dermatology at [address] [place] [address] Marek Bonilla MD [address] [facility], [address] A DERMATOLOGY [place], [place] [phone] Rosacea; Acrochordon Social History Tobacco Use Types [...] Discussed the possibility of getting this through [facility] or from the [facility] if necessary. She has not yet [...] 11/02/2024 12:00 PM EDT Appointment [place] [address] 11/02/2024 1:00 PM EDT Office [place] [address] Magdalena Peralta MD [facility] DR RHEUM[place] [address] 03/01/2025 4:15 PM EDT Office Visit Dermatology at [place] [address] [facility] [place] [address] Marek Bonilla MD [address] [facility], [place] [address] documented as of this encounter Visit Diagnoses Diagnosis Rosacea Acrochordon Unspecified hypertrophic and atrophic condition of skin documented in this encounter Care Teams Monogram And Letter Paster Relationship Specialty Start Date End Date Deborah Quiroga APRN PCP - General Family Medicine 03/24/16 02/04/23 documented as of this encounter
--- OUTSIDE RECORDS SUMMARY | 2024-06-27 15:21 | XMS_ITS | Encounter Summary ---
Author Organization [facility] [place] [address] Care Team Providers Care Director Of Community Center Name Role Phone Ashley Quirogazac Shields APRN Primary Care Provider [phone] Encounter Details Date Type Department Care Team [...] 11/02/2024 12:00 PM EDT Appointment [place] [address] 11/02/2024 1:00 PM EDT Office [place] [address] Magdalena Peralta MD [facility] [place] [address] 03/01/2025 4:15 PM EDT Office Visit Dermatology at [address] [place] [address] Marek Bonilla MD [address] [facility], [place] [address] documented as of this encounter Visit Diagnoses Not on filedocumented in this encounter Care Teams Director Of Community Center Relationship Specialty Start Date End Date Deborah Quiroga APRN PCP - General Family Medicine 03/24/16 02/04/23 documented as of this encounter
--- OUTSIDE RECORDS SUMMARY | 2024-06-27 15:21 | XMS_ITS | Encounter Summary ---
Author Organization [facility] [place] [address] Care Team Providers Care Sales Attendant Name Role Phone Winter Quiroga APRN Primary Care Provider [phone] Encounter Details Date Type Department Care Team (Late st Contact Info) Description 06/05/2021 Interpretation Only [address] [address] Winter Quiroga APRN [address] [phone] Social History Tobacco Use Types Packs/Day Years [...] 11/02/2024 12:00 PM EDT Appointment [place] [address] 11/02/2024 1:00 PM EDT Office [place] [address] Magdalena Peralta MD [facility] [place] [address] 03/01/2025 4:15 PM EDT Office Visit Dermatology at [place] [address] [place] [address] Marek Bonilla MD [address], [place] [address] documented as of this encounter Procedures Procedure Name Priority Date/Time Associated Diagnosis Comments MAMMO SCREENING CAD AND ERLIN BILATERAL Routine 06/05/2021 11:42 AM EDT documented in this encounter Results * Mammo Screening Cad and Erlin Bilateral (06/05/2021 11:42 AM EDT) PT CLASS O DH RAD ADMITDTTM DH RAD PT DH RAD MD INFO [id number]^EVERET T^WINTER^E DH RAD EXAM DESC MADDSCTO^BREAST SCREEN [...] who have questions please contact the health reproductive healthcare assistant that requested your imaging first. ? Electronically signed by: Rocael Villatoro MD, [facility] ([phone]), at 06/05/2021 1:27 PM Narrative 06/05/2021 1:27 [...] patients who have questions please contactthe health reproductive healthcare assistant that requested your imaging first. Electronically signed by: Rocael Villatoro MD, [facility]([phone]), at 06/05/2021 1:27 PM Winter Quiroga APRN IMG MAMMO ORDERABLE S documented in this encounter Visit Diagnoses Not on filedocumented in this encounter Care Teams Sales Attendant Relationship Specialty Start Date End Date Winter Quiroga APRN PCP - General Family Medicine 03/24/16 02/04/23 documented as of this encounter
--- OUTSIDE RECORDS SUMMARY | 2024-06-27 15:21 | XMS_ITS | Encounter Summary ---
Author Organization [facility] [place] [address] Care Team Providers Care Insurance Consultant Name Role Phone Ashley Quirogan Cornelius ANURAG Primary Care Provider [phone] Encounter Details Date Type Department Care Team (Late st Contact Info) Description 02/07/2020 Telephone H[place]ology [place] [address] Ellen Rios RN Social History [...] 02/07/2020 12:59 PM EDT Message received from stud master/mistress: Injection/Infusion Referral Services to be provided for pt are: CBC only at [facility]- Pt will go by 02/27 Orders faxed to [phone]). Spoke with pt. She will call [facility] directly to schedule a time that works for her. documented in this encounter Plan of Treatment Upcoming Encounters Date Type Department Care Team (Late Contact Info) Description 11/02/2024 12:00 PM EDT [place] [address] 11/02/2024 1:00 PM EDT Office [place] [address] Magdalena Peralta MD [facility] [place] [address] 03/01/2025 4:15 PM EDT Office Visit Dermatology at [place] [address] [facility] [place] [address] Marek Bonilla MD [address], [place] [address] documented as of this encounter Visit Diagnoses Not on filedocumented in this encounter Care Teams Insurance Consultant Relationship Specialty Start Date End Date Deborah Quiroga APRN PCP - General Family Medicine 03/24/16 02/04/23 documented as of this encounter
--- OUTSIDE RECORDS SUMMARY | 2024-06-27 15:21 | XMS_ITS | Encounter Summary ---
Author Organization [facility] Address [facility] Erika lópez[place] [address] Care Team Providers Care Experience Designer Name Role Phone Deborah Quiroga ANURAG Primary Care Provider [phone] Encounter Details Date Type Department Care Team (Late st Contact Info) Description 11/11/2020 Refill Dermatology at [address] [place] [address] Taylor Malone, SUPERINTENDENT BOARD MILL Social History Tobacco Use Types Packs/Day Years [...] 12:00 PM EDT Appointment [place] [phone] 11/02/2024 1:00 PM EDT Office [place] [address] Magdalena Peralta MD [facility] [place] [address] 03/01/2025 4:15 PM EDT Office Visit Dermatology at [address] [place] [address] Marek Bonilla MD [address], [place] [address] documented as of this encounter Visit Diagnoses Not on filedocumented in this encounter Care Teams Experience Designer Relationship Specialty Start Date End Date Deborah Quiroga APRN PCP - General Family Medicine 03/24/16 02/04/23 documented as of this encounter
--- OUTSIDE RECORDS SUMMARY | 2024-06-27 15:21 | XMS_ITS | Encounter Summary ---
[place] [address] Care Team Providers Care Mat Making Machine Tender Name Role Phone Ashley Quirogazac Shields APRN Primary Care Provider [phone] Reason for Visit * Reason Onset Date Comments Results 12/03/2016 Encounter Details Date Type Department Care Team (Late st Contact Info) Description 12/03/2016 Telephone Hematology [place] [address] Yudith Valentine, RN Results Social History Tobacco [...] EDT RN received call from Maddy at [facility] reporting critical WBC at 1.61, and ANC of 0.5. She will fax the full results to this office for hedis review nurse notified DR Borjas of above results documented in this encounter Plan of Treatment Upcoming Encounters Date Type Department Care Team (Late st Contact Info) Description 11/02/2024 12:00 PM EDT Appointment [place] [address] 11/02/2024 1:00 PM EDT Office [place] [address] Magdalena Peralta MD [facility] [place] [address] 03/01/2025 4:15 PM EDT Office Visit Dermatology at [place] [address] [facility] [place] [address] Marek Bonilla MD [address] [facility], [place] [address] documented as of this encounter Visit Diagnoses Not on filedocumented in this encounter Care Teams Mat Making Machine Tender Relationship Specialty Start Date End Date Deborah Quiroga APRN PCP - General Family Medicine 03/24/16 02/04/23 documented as of this encounter
--- OUTSIDE RECORDS SUMMARY | 2024-06-27 15:21 | XMS_ITS | Encounter Summary ---
Author Organization [facility] Address [facility] [place] [address] Care Team Providers Care Rehabilitation Technician Name Role Phone Junaid Deborah Cornelius ANURAG Primary Care Provider [phone] Encounter Details Date Type Department Care Team (Late st Contact Info) Description 03/04/2020 External Results Hematology and Oncology at [place] [phone] ThershaniquexBhumi Social History Tobacco Use Types Packs/Day [...] 11/02/2024 12:00 PM EDT Appointment [place] [address] 11/02/2024 1:00 PM EDT Office [place] [address] Magdalena Peralta MD [facility] RHEUMATOLOGY DEPT [place] [phone] 03/01/2025 4:15 PM EDT Office Visit Dermatology at [place] [address] [facility] [place] [address] Marek Bonilla MD [address], [place] [address] documented as of this encounter Procedures Procedure [...] filedocumented in this encounter Care Teams Rehabilitation Technician Relationship Specialty Start Date End Date Deborah Quiroga, SOAP MAKER PCP - General Family Medicine 03/24/16 02/04/23 documented as of this encounter
--- OUTSIDE RECORDS SUMMARY | 2024-06-27 15:21 | XMS_ITS | Encounter Summary ---
Author Organization [facility] [place] [address] Care Team Providers Care Tipple Supervisor Name Role Phone Junaid Deborah Shields APRN Primary Care Provider [phone] Encounter Details Date Type Department Care Team (Latest Contact Info) Description 11/09/2022 10:37 AM EDT - 11/09/2022 4:53 PM EDT Hospital [place] [address] Nitesh Escobedo MD [facility] [place] [address] Aortic valve stenosis, etiology of cardiac valve [...] Center 02/05/2023 2:30 PM Marek Bonilla MD [facility] [place] [facility] New Medications to be Picked Up None For questions regarding this document or issues relating to this hospitalization on the Medical Service, please contact your inpatient physician through the [facility] Mold Closer Helper . Issues afterhours and on weekends will be handled by the Hospitalist staff on-call. * Attachments The following attachments cannot be sent through Care Everywhere. * Coronary Angiogram: Post-op (Icelandic) * Right Heart Catheterization: Pulmonary Artery Catheterization: Post-op (Icelandic) documented in this encounter Medications at Time [...] MD - 11/09/2022 11:20 AM EDT . [facility] Interventional Cardiology Adult Pre-Procedure H&P Update: Cardiac Catheterization Purnima Thacker [id number] 1955 Chief Complaint: BONILLA HPI: Purnima Thacker [...] Marrero MD Interventional Cardiology 11/09/22 11:[address] [facility] Pager: [phone] documented in this encounter Plan of Treatment Upcoming Encounters Date Type Department Care Team (Late st Contact Info) Description 11/02/2024 12:00 PM EDT Appointment [place] [address] 11/02/2024 1:00 PM EDT Office [place] [address] Magdalena Peralta MD [facility] [address] 03/01/2025 4:15 PM EDT Office Visit Dermatology at [place] [address] [place] [address] Marek Bonilla MD [address], [place] [address] documented as of this encounter Procedures Procedure Name Priority Date/Time Associated Diagnosis Comments CARDIAC CATHETERIZATION Routine 11/10/19 1:05 PM EDT Aortic valve stenosis, etiology of cardiac valve disease unspecified Cath Plmt Left Heart Cath & Arts W/Inj & Angio Img S&I ([id number]) 11/09/2022 11:51 AM EDT Aortic valve stenosis, etiology of cardiac valve disease unspecified EKG 12-LEAD Routine 11/09/2022 11:17 AM EDT Aortic valve stenosis, etiology of cardiac valve disease unspecified documented in this encounter Results * CARDIAC CATHETERIZATION (11/09/2022 1:05 PM EDT) Anatomical Region Laterality Modality Other Narrative 11/09/2022 2:01 PM EDT ?[facility] ? Cardiac Catheterization/Intervention Report ? Patient Name: Kirstie, Purnima M. ? Procedure Date: 11/09/2022 ? A #: [id number] ? Primary Physician: Nitesh Escobedo ? Case #: [id number] ? File Name: [id number] ? Catheterization Order Number: [id number] ? [facility] ? Final Report [place], [place] ? Patient Name: ? Purnima M. Kirstie ? ID#: ?[id number] ? : ?1955 ? Procedure Date: ? November 09, 2022 ? Case #: ? [id number] ? Room: ? 1 ? Case Physician: [...] was designated as ASA Class III. The [facility] clinical frailty scale ?is 4: Vulnerable. [...] (Bezet) 457 ms MUSE SYSTEM Calculated P [place] 44 degrees MUSE SYSTEM Calculated R [place] 33 degrees MUSE SYSTEM Calculated T [place] 30 degrees MUSE SYSTEM INTERPRETATION Sinus rhythm Occasional Premature ventricular complexes Otherwise normal ECG When compared with ECG of 21-SEP-2016 12:26, Premature ventricular complexes are now Present CT interval has decreased Nonspecific T wave abnormality has replaced inverted T waves in Inferior leads I personally reviewed the tracing and edited the fellows interpretation Confirmed by fellow MD Anitha, Carissa ([id number]) on 11/09/2022 6:17:28 PM Confirmed by Elsa Linares MD ([id number]) on 11/10/2022 3:47:14 PM MUSE SYSTEM 11/09/2022 11:1 7 AM EDT 11/10/2022 3:47 PM EDT Nitesh Escobedo MD ECG ORDERABLES [facility] [employer] [facility] documented in this encounter Visit Diagnoses [...] MD) documented in this encounter Care Teams Tipple Supervisor Relationship Specialty Start Date End Date Junaid Deborah Shields, ASSOCIATE ACCOUNT EXECUTIVE PCP - General Family Medicine 03/24/16 02/04/23 documented as of this encounter
--- OUTSIDE RECORDS SUMMARY | 2024-06-27 15:21 | XMS_ITS | Encounter Summary ---
Author Organization [facility] [place] [address] Care Team Providers Care Software Qa System Specialist Name Role Phone Deborah Quiroga APRN Primary Care Provider Encounter Details Date Type Department Care Team (Late st Contact Info) Description 06/17/2022 Ancillary Procedure Radiology Library at [facility] [place] [phone] Deborah Quiroga APRN [address] [place] [address] Social History Tobacco Use Types Packs/Day [...] 11/02/2024 12:00 PM EDT Appointment [place] [address] 11/02/2024 1:00 PM EDT Office [place] [address] Magdalena Peralta MD [facility] RHEUMATOLOGY DEPT [place], [place] [phone] 03/01/2025 4:15 PM EDT Office Visit Dermatology at [place] [address] [place] [address] Marek Bonilla MD [address], [address] [place] [address] documented as of this encounter Procedures Procedure Name Priority Date/Time Associated Diagnosis Comments FILM LIBRARY STORAGE ONLY MR SPINE Routine 06/17/2022 12:00 AM EST documented in this encounter Results * Film Library- Storage Only MR Spine (06/17/2022 12:00 AM EST) Narrative [facility] - 06/18/2022 11:00 AM EST This exam is auto-finalizing. It's purpose is for storage only. Deborah Quiroga APRN IMG FILM LIBRARY OR DERABLES Performing Organization Address City/State/[facility] de Phone Number [place], [place] documented in this encounter Visit Diagnoses Not on filedocumented in this encounter Care Teams Software Qa System Specialist Relationship Specialty Start Date End Date Deborah Quiroga APRN PCP - General Family Medicine 03/24/16 02/04/23 documented as of this encounter
--- OUTSIDE RECORDS SUMMARY | 2024-06-27 15:21 | XMS_ITS | Encounter Summary ---
Author Organization [facility] [place] [address] Care Team Providers Care Pit Manager Name Role Phone Ashley Quirogan Cornelius ANURAG Primary Care Provider [phone] Encounter Details Date Type Department Care Team (Late st Contact Info) Description 02/06/2020 Orders Only H[place]ology [place] [address] Markel Borjas MD [facility] [address] HEMATOLOGY AND ONCOLOGY [place], [place] [id number] Neutropenia, unspecified type Social History Tobacco Use [...] 11/02/2024 12:00 PM EDT Appoint[place] [address] 11/02/2024 1:00 PM EDT Office [place] [address] Magdalena Peralta MD [facility] [place] [address] 03/01/2025 4:15 PM EDT Office Visit Dermatology at [place] [address] [place] [address] Marek Bonilla MD [address], [place] [address] documented as of this encounter Visit Diagnoses Diagnosis Neutropenia, unspecified type documented in this encounter Care Teams Pit Manager Relationship Specialty Start Date End Date Deborah Quiroga APRN PCP - General Family Medicine 03/24/16 02/04/23 documented as of this encounter
--- OUTSIDE RECORDS SUMMARY | 2024-06-27 15:21 | XMS_ITS | Encounter Summary ---
Author Organization [facility] [place] [address] Care Team Providers Care Retail Pos Specialist Name Role Phone Deborah Quiroga APRN Primary Care Provider [phone] Encounter Details Date Type Department Care Team (Latest Contact Info) Description 07/03/2022 12:28 PM EST - 07/03/2022 1:35 PM EST Hospital Encounter Hematology [place] [address] Chronic idiopathic neutropenia Discharge Disposition: Home Social [...] 11/02/2024 12:00 PM EDT Appointment [place] [address] 11/02/2024 1:00 PM EDT Office [place] [address] Magdalena Peralta MD [facility] [place] [address] 03/01/2025 4:15 PM EDT Office Visit Dermatology at [place] [address] [place] [id number] Marek Bonilla MD [address], [place] [address] documented as of this encounter Procedures Procedure Name Priority Date/Time Associated Diagnosis Comments HEMOGRAM Routine 07/03/2022 12:40 PM EST Chronic idiopathic neutropenia DIFFERENTIAL, AUTOMATED Routine 07/03/2022 12:40 PM EST Chronic idiopathic neutropenia CBC,PLT & AUTO DIFF Routine 12:40 PM EST Chronic idiopathic neutropenia COMPREHENSIVE METABOLIC PANEL Routine 07/03/2022 12:40 PM EST Chronic idiopathic neutropenia documented in this encounter Results * (ABNORMAL) Differential, Automated (07/03/2022 12:40 PM EST) Neutrophil % 72.9 % [facility] Neutrophil Absolute 2.61 1.70 - 6.10 x10(3)/mc L [facility] Lymph % 18.4 % [facility] Lymphocytes Abs 0.7(L) 0.9 - 3.2 x10(3)/mc L [facility] Monocyte % 8.4 % [facility] Monocyte Abs 0.3 0.3 - 0.9 x10(3)/ L [facility] Eos % 0.0 % [facility] Eosinophils Abs 0.0 0.0 - 0.4 x10(3)/ L [facility] Basophil % 0.3 % [facility] Baso Absolute 0.0 0.0 - 0.1 x10(3)/mc L [facility] Immature Gran % 0.00 % NORTH [...] x10(3)/ L [facility] Blood 07/03/2022 12:4 0 PM EST 07/03/2022 1:03 PM EST Narrative Resulting Agency Comment Spec In Lab Markel Borjas MD HEMATOLOGY ORDERAB LES [facility] [place] [address] * (ABNORMAL) Hemogram (07/03/2022 12:40 PM EST) White Blood Cell 3.6(L) 4.0 - 9.5 x10(3)/mc L [facility] Red Blood Cell 3.61(L) 4.00 - 5.21 x10(6)/mc L [facility] Hemoglobin 11.7 11.7 - 15.5 g/dL [facility] Hematocrit 34.5(L) 35.7 - 45.8 % [facility] Mean Cell Volume 95.6(H) 82.6 - 94.4 fL [facility] Mean Cell Hemoglobin 32.4(H) 27.1 - 32.0 pg [facility] Mean Cell Hemoglobin Concentration 33.9 31.7 - 35.0 g/dL [facility] Platelet 171 145 - 357 x10(3)/mc L [facility] RDW Standard Deviation 40.5 37.0 - 46.0 [facility] RDW coefficient of variation 11.5 11.5 - 14.1 % [facility] Mean Platelet Volume 9.2 7.6 - 12.9 fL [facility] NRBC% auto 0.0 % [facility] NRBC Absolute 0.000 0.000 - 0.000 x10(3)/mc L [facility] Blood 07/03/2022 12:4 0 PM EST 07/03/2022 1:03 PM EST Narrative Resulting Agency Comment Spec In Lab Markel Borjas MD HEMATOLOGY ORDERAB LES [facility] [place] [address] * (ABNORMAL) Comprehensive metabolic panel (non-fasting) (07/03/2022 [...] MD CHEMISTRY ORDERABL ES Performing Organization Address City/State/[facility] Co de Phone Number [facility] [place] [address] documented in this encounter Visit Diagnoses Diagnosis Chronic idiopathic neutropenia Other neutropenia documented in this encounter Care Teams Retail Pos Specialist Relationship Specialty Start Date End Date Deborah Quiroga, ANURAG PCP - General Family Medicine 03/24/16 02/04/23 documented as of this encounter
--- OUTSIDE RECORDS SUMMARY | 2024-06-27 15:21 | XMS_ITS | Encounter Summary ---
Author Organization [facility] Address [facility] [place] [address] Care Team Providers Care Solid Tire Finisher Name Role Phone Ashley Quirogazac Shields APRN Primary Care Provider [phone] Encounter Details Date Type Department Care Team (Latest Contact Info) Description 06/22/2022 10:00 AM EST Office [place] [address] Raymond Loredo MD [facility] [place] [address] Raynaud's phenomenon without gangrene; Positive FRANCISCO (antinuclear [...] can be done locally or here at [facility] that the current time is not particularly [...] for surgery by Dr. Rogers here at [facility]. In addition to painful dysesthesias in her [...] over radiocarpal or ulnocarpal joints. Hands: Normal machine scallop cutter and claw. SJC/TJC 0/0. Knees: Decreased flexion [...] 11/02/2024 12:00 PM EDT Appointment [place] [address] 11/02/2024 1:00 PM EDT Office [place] [phone] Magdalena Peralta MD [facility] [place] [address] 03/01/2025 4:15 PM EDT Office Visit Dermatology at [place] [address] [place] [address] Marek Bonilla MD [address] [facility] [facility] [place] [address] documented as of this encounter Visit Diagnoses Diagnosis Raynaud's phenomenon without gangrene Positive FRANCISCO (antinuclear antibody) Other and unspecified nonspecific immunological findings Primary osteoarthritis involving multiple joints Cervical disc disorder at C6-C7 level with radiculopathy documented in this encounter Care Teams Solid Tire Finisher Relationship Specialty Start Date End Date Deborah Quiroga APRN PCP - General Family Medicine 03/24/16 02/04/23 documented as of this encounter
--- OUTSIDE RECORDS SUMMARY | 2024-06-27 15:22 | XMS_ITS | Encounter Summary ---
Author Organization [facility] [address] Care Team Providers Care Computed Tomography Technologist Name Role Phone Deborah Quiroga APRN Primary Care Provider [phone] Encounter Details Date Type Department Care Team (Late st Contact Info) Description 08/18/2016 Orders Only [place] [phone] Alirio Esparza MD Aortic valve stenosis, unspecified [...] 11/02/2024 12:00 PM EDT Appointment [place] [address] 11/02/2024 1:00 PM EDT Office [place] [address] Magdalena Peralta MD [facility] [place] [address] 03/01/2025 4:15 PM EDT Office Visit Dermatology at [address] [address] Marek Bonilla MD [address] [place] [address] documented as of this encounter Results * Basic Metabolic Panel (non-fasting) (08/18/2016 4:50 PM EST) Glucose 82 65 - 199 mg/dL [facility] Comment:Diabetes: >=200 mg/d L plus symptoms Blood Urea Nitrogen 12 8 - 18 mg/dL [facility] [...] 107 mmol/L [facility] Carbon Dioxide 26 22 - 31 mmol/L [facility] [...] the following links into your internet browser. [email or web address] Blood specimen (specimen) 08/18/2016 4:50 PM EST 08/18/2016 5:03 PM EST Narrative Resulting Agency Comment Spec In Lab Alirio Esparza MD CHEMISTRY ORDERABLE S [facility] [place] [address] documented in this encounter Visit Diagnoses Diagnosis Aortic valve stenosis, unspecified etiology documented in this encounter Care Teams Computed Tomography Technologist Relationship Specialty Start Date End Date Deborah Quiroga, QUALITY ASSURANCE REPRESENTATIVE PCP - General Family Medicine 03/24/16 02/04/23 documented as of this encounter
--- OUTSIDE RECORDS SUMMARY | 2024-06-27 15:22 | XMS_ITS | Encounter Summary ---
Author Organization [facility] [place] [address] Care Team Providers Care Command And Control Systems Integrator Name Role Phone Ashley Qiurogazac Shields APRN Primary Care Provider [phone] Reason for Referral * Consultation (Routine) - Specialty Diagnoses / Procedures Referred By Contact Referred To Contact Cardiac Rehabilitation Diagnoses S/P AVR Alirio Esparza MD [facility] [place] [address] Cardiac Rehab, [address] [place] [address] Referral ID Status Reason Start Date Expiration Date V isits Requested Visits Authorized [id number] Consult, Test & Treat 09/25/2016 03/24/2017 36 36 Reason for Visit * Auth/Cert Specialty Diagnoses / Procedures Referred By Contkrystle t Referred To Contact Diagnoses Aortic stenosis Procedures PRO REPLACE AORT VALV, PROSTH VALV @REPLACE AORTIC VALVE, OPEN, W\CPB, W\PROSTHETIC VALVE (WRVU 41.32) Referral ID Status Reason Start Date Expiration Date Visits Re quested Visits Authorized [id number] 1 1 Encounter Details Date Type Department Care Team (Latest Contact Info) Description 09/21/2016 6:08 AM EST - 09/25/2016 4:33 PM EST Hospital Encounter [place] [id number] Alirio Esparza MD Aortic valve stenosis, unspecified [...] Patient Age: 61 y.o. Birthdate: 1955 Language: Pakistani Race: White Ethnicity: Not nor Admit Date: 09/21/2016 Discharge Date: 09/25/2016 Attending Physician: Alirio Esparza MD Follow-up Recommendations for Providers: Please continue routine management of cardiovascular risk factors including blood pressure, lipids,glucose, etc. Please note any changes to medications. Patient to follow-up with PCP, Deborah Quiroga APRN, in 1-2 weeks. Patient to follow-up with Licensed [employer] Real Estate Appraiser, Dr. Antelmo Burrell, in two weeks. Patient to follow-up with Cardiac Surgery, Dr. Alirio Esparza, to be scheduled for before 10/19/2016, with CXR, EKG, and Echo. Inpatient Provider Contact Information: [facility] Section of Cardiac Surgery [facility] [address] FAX [phone] Discharge Diagnoses (Hospital Problems) Primary Diagnoses: Secondary [...] by Alirio Esparza MD at [facility] MAIN OR ??? Pro aortoplas for supravalv sten N/A 09/21/2016 @AORTOPLASTY FOR SUPRAVALVULAR STENOSIS (WRVU 29.33) performed by Alirio Esparza MD at [facility] MAIN OR Prior To Admission [...] Hospital Course: Purnima Thacker was admitted to [facility] on 09/21/2016 via the Same [...] Alirio Esparza and/or the Cardiac Surgery Physician [employer] Team may be reached at . Antibiotic prophylaxis: You will need to take antibiotics prior to many invasive tests and treatments, such as dental cleaning, which should be done every 6 months. Your primary care physician or your dentist can prescribe this medication. Please refer to the card with the [place] Heart Association Guidelines for more information. You have been provided with 3 copies of this card. Keep one for your self. Give one to your primary care physician and one to your dentist. Please refer to the [place] Heart Association Guidelines for more information. Good [...] Dr. Alirio Jones. You may use a Dudley Track or treadmill but avoid any pulling [...] should resume a low fat, low cholesterol, [place] Heart Association Diet. Driving: No driving until [...] AM Markel Borjas MD [facility] [phone] Future Orders Complete By Expires Echocardiogram Transthoracic([place]) [GCZ130 Custom] 10/18/2016 (Approximate) 09/18/2017 Process Instructions: If the Echocardiogram is to be PERFORMED in a location other than [place]--STOP and order [id number], Echocardiogram South/External. Scheduling Instructions: Questions: Is a Bubble Study requested?: No Does the patient have Congenital Heart Disease?: No Does patient require sedation?: None GA rationale: Should this service be billed to the research sponsor?: EKG 12 Lead [EKG1 Custom] 10/18/2016 (Approximate) 09/25/2017 Process Instructions: Scheduling Instructions: Questions: Which location will this be performed?: [place] Is a rhythm strip needed?: No If EKG Reason is Pre-op Evaluation, indicate diagnosis for surgery.: Should this service be billed to the research sponsor?: XR Chest PA & Lateral (Generic) [17521 06380 Custom] 10/18/2016 (Approximate) 09/25/2017 Process Instructions: Scheduling Instructions: Questions: Where will study be performed?: [facility]- Radiology Portable exam?: No Reason for exam and clinical history: s/p AVReplacement, patch annuloplasty 1 month f/u Other pertinent information: Stat read required?: Date of injury if applicable: Requested Time: Referral to Cardiac Rehab [YSB773 Custom] As directed Process Instructions: If no progress note charted, please enter Clinical details in comments. Scheduling Instructions: Questions: My question or request is: s/p AVR. Cardiac rehab at [facility] Referral to Home Health - at DISCHARGE [SMR4316 CPT(R)] As directed Process Instructions: Scheduling Instructions: Comments: DOCUMENTATION FOR VNA SERVICES (INCLUDING THOSE PATIENTS WITH MEDICARE COVERAGE REQUIRING HOME VNA SERVICES AND/OR HOSPICE SERVICES) PATIENT'S LOCATION: Purnima Magalie Kirstie [address] [place] [phone] (home) No relevant phone numbers on file. Quality Systems Manager's Name: self In discussion with the attending physician, it is certified that this patient is under their care and that they, or a Nurse Practitioner, or Physician [employer] who is working directly with them, hada [...] [facility] PHONE: [phone] FAX: [phone] RN orders: Cardiopulmonary assessment, incisional assessment, assess [...] issues please call the Cardiac SurgeryOffice at [phone] FOR MEDICARE ONLY: In discussion with the [...] AFTER 09/30/16 Signed: Crispin Aranda PA-C 09/25/2016 [facility] Section of Cardiac Surgery [facility] [address] FAX [phone] Date: 09/25/2016 CC: ANURAG Alford Caryn E, APRN [address] [place] [address] documented in this encounter Discharge Instructions * [...] Alirio Esparza and/or the Cardiac Surgery Physician [employer] Team may be reached at . Antibiotic prophylaxis: You will need to take antibiotics prior to many invasive tests and treatments, such as dental cleaning, which should be done every 6 months. Your primary care physician or your dentist can prescribe this medication. Please refer to the card with the [place] Heart Association Guidelines for more information. You have been provided with 3 copies of this card. Keep one for your self. Give one to your primary care physician and one to your dentist. Please refer to the [place] Heart Association Guidelines for more information. Good [...] Dr. Alirio Jones. You may use a Dudley Track or treadmill but avoid any pulling [...] should resume a low fat, low cholesterol, [place] Heart Association Diet. Driving: No driving until [...] PM EST Cardiac Surgery Progress Note: ID: [id number] S/p AVR, patch aortoplasty POD#2. PMH of [...] Gas) No results found for: PHART, PO2ART, TSI5JCD Assessment/Plan: TPW out this am. (+) BM. [...] Signed: Crispin Aranda PA-C 09/24/2016 Team pager: [phone]; [phone] after 5pm [facility] Section of Cardiac Surgery * Leonor Henson, SLIP COVER SEWER - 09/23/2016 10:48 AM EST Cardiac Surgery Progress Note: ID: [id number] s/p AVR, patch aortoplasty POD#2. PMH of [...] Gas) No results found for: PHART, PO2ART, VSX6EFR Assessment/Plan: s/p AVR, patch aortoplasty POD#2. PMH of Neutropenia, HLD, HTN, Depression, obesity, . Transferred from [facility] yesterday and doing well. Pathway. Will [...] Surgeon on rounds. Signed: Leonor Henson APRN [facility] Section of Cardiac Surgery Date: 09/23/2016 * Nico Palacios PA - 09/22/2016 9:56 AM EST Cardiac Surgery Progress Note: ID: [id number] s/p AVR, patch aortoplasty POD#1. PMH of [...] NT, ND, soft. Ext: Moves all extremities. Jessie, well perfused. Incisions: C/D/I Tubes/Lines/Drains: PIV, leanna, [...] Attending Surgeon on rounds. Signed: EKATERINA KIM [facility] Section of Cardiac Surgery Date: [...] with outpatient services Lalitha Cohen SPTA Pager: [phone] Inpatient Physical Therapy Patient status, treatment interventions, and goals discussed with student. I am in agreement with all details and associated flowsheet rows as documented and was present for all aspects of the patient treatment session. Nerykatrina Jaramillo, [facility] Pager [phone] Problem: Acute Rehab Services Goal & Intervention Plan Goal: Bed Mobility Goal Stand Alone Therapy Goal Outcome: Ongoing (Interventions Implemented as Appropriate) 09/22/16 16109/25/16 09 Bed Mobility Goal Bed Mobility Goal, Time to Achieve 4 days -- Bed Mobility Goal, Activity Type scoot/bridge;supine to sit/sit to supine -- Bed Mobility Goal, [place] Level independent -- Bed Mobility Goal, Additional [...] Achieve 4 days -- Gait Training Goal, [place] Level independent -- Gait Training Goal, Distance [...] assist, home with home health Lalitha Cohen [facility] Pager: [phone] Inpatient Physical Therapy Patient status, treatment interventions, and goals discussed with student. I am in agreement with all details and associated flowsheet rows as documented and was present for all aspects of the patient treatment session. Nery Jaramillo, [facility] Pager [phone] Problem: Acute Rehab Services Goal & Intervention Plan Goal: Bed Mobility Goal Stand Alone Therapy Goal Outcome: Ongoing (Interventions Implemented as Appropriate) 09/22/16 16109/23/16 1412 Bed Mobility Goal Bed Mobility Goal, Time to Achieve 4 days -- Bed Mobility Goal, Activity Type scoot/bridge;supine to sit/sit to supine -- Bed Mobility Goal, [place] Level independent -- Bed Mobility Goal, Additional [...] Achieve 4 days -- Gait Training Goal, [place] Level independent -- Gait Training Goal, Distance [...] days -- Transfer Training Goal, Activity Type boe-mf-orgpj/kdnqj-yy-tjn;xax-dj-avvtc/elaau-ri-gfe -- Transfer Train Goal, [place] Level independent -- Transfer Training Goal, Additional Goal abides sternal precautions -- Transfer Training Goal, Outcome -- goal met * Consult Note - Jana Crenshaw RN - 09/23/2016 9:41 AM EST [facility] CARDIAC REHABILITATION Purnima Thacker was seen today [...] patient c/o discomfort with al. Catheter and awlly area cleaned thoroughly. Will ask team to [...] Another Service: (cardiac rehab) NICOLE HERNANDEZ, PT Pager:[phone] Inpatient Physical Therapy Problem: Acute Rehab Services Goal & Intervention Plan Goal: Bed Mobility Goal Stand Alone Therapy Goal Outcome: Ongoing (Interventions Implemented as Appropriate) 09/22/16 1611 Bed Mobility Goal Bed Mobility Goal, Time to Achieve 4 days Bed Mobility Goal, Activity Type scoot/bridge;supine to sit/sit to supine Bed Mobility Goal, [place] Level independent Bed Mobility Goal, Additional Goal able to abide sternal precautions during transfers Goal: Gait Training Goal Stand Alone Therapy Goal Outcome: Ongoing (Interventions Implemented as Appropriate) 09/22/16 1611 Gait Training Goal Gait Training Goal, Date Established 09/22/16 Gait Training Goal, Time to Achieve 4 days Gait Training Goal, [place] Level independent Gait Training Goal, Distance to Achieve ascend and descends 2 steps independently Goal: Goal Transfer Training Stand Alone Therapy Goal Outcome: Ongoing (Interventions Implemented as Appropriate) 09/22/16 1611 Goal Transfer Training Transfer Training Goal, Time to Achieve 4 days Transfer Training Goal, Activity Type awa-um-utpzu/gwkuw-bk-idi;fwn-yp-otmws/tocof-ff-lhm Transfer Train Goal, [place] Level independent Transfer Training Goal, Additional Goal [...] of completing AD's at home, chooses her chfirs-ev-xnd, Martha Thacker (home) for her [facility], 2nd choice in friend, Nitesh Leroy [place], [place] Current Coping/Education/Information Needs: patient sitting up [...] who live close by, [place], and her hacmnm-cw-qqz Martha Thacker who she has chosen to be her DPOAH. Also has a friend Nitesh Leroy who lives in [place], [place], also her DPOAH choice. Behavioral Health History: none on file in e[facility] Substance Use/Abuse: none on file in [facility] Other Pertinent/Service Specific Information: none Health/Prescription Coverage: Primary Insurance: [employer] Secondary Insurance: none Prescription Coverage: yes, per patient no issues Preferred Pharmacy: ?? Other: none Primary Care Provider: Deborah Quiroga, SLIP COVER SEWER [phone] Patient/Caregiver Goals of Treatment: per medical team recommendations at discharge for CT surgery Potential Needs for Transition of Care: Rehab/SNF: TBD Home Health: TBD DME: no Dialysis: no Community Resources: non3 Transportation: ride home with a friend Other: none Anticipated Barriers to Discharge/Special Considerations: none anticipated at this time Plan: patient will need VNA services at discharge. The patient/applications sales representative has been provided a list of Home Health Agencies/DME vendors which servetheir preferred geographic area. A letter describing our affiliations was reviewed with them and they were educated about their right to choose where referrals are placed. Patient requests referral to: [facility] [employer] PHONE: [phone] FAX: [phone] Expected date of discharge: Fri/Sat? CM called VNA to confirm referral, talked with VALDO Bunn/intake who stated she was familiar w/patient & would monitor her progress through curaspan. Referral routed to the Glass Inspector for matching with agency/vendor and to provide any required information. A member of the Care Management team will continue to monitor progress, follow for continuity of care and assist with transition of care planning. Amanda Moreno RN Pager: [phone] * Op Note - Alirio Esparza MD - 09/21/2016 12:53 PM EST 09/23/2016 Purnima Thacker 1955 [id number] Preoperative Diagnosis: Symptomatic aortic stenosis Postoperative Diagnosis: Symptomatic aortic stenosis Procedure: Aortic valve replacement: Bovine Pericardial 25 mm Surgeon: Alirio Esparza M.D. [employer]: Philip BALL Anesthesia: General endotracheal anesthesia Drains: [...] Operative Note Patient Name: Purnima Thacker : [id number] MR#: [id number] Case Date: 09/21/2016 Surgeon: Surgeon(s) and Role: * Alirio Esparza MD - Primary * Nico Palacios PA - Physician [employer] Preoperative diagnosis: Postoperative diagnosis: Procedure(s) (LRB): @REPLACE [...] 11/02/2024 12:00 PM EDT Appointment [place] [address] 11/02/2024 1:00 PM EDT Office Visit [place] [address] Magdalena Peralta MD [facility] [place] [address] 03/01/2025 4:15 PM EDT Office Visit Dermatology at [address] [place] [phone] Marek Bonilla MD [address] [place] [address], [place] [address] Scheduled Orders Name Type Priority Associated Diagnoses [...] IMPLANTABLE DEVICES SCAN 09/26/2016 12:00 AM EST DOCTORATE OF CHIROPRACTIC SCAN 09/26/2016 12:00 AM EST POTASSIUM Routine [...] SCAN EXT O RDR/RSLT * SCAN DOC: DOCTORATE OF CHIROPRACTIC (09/26/2016 12:00 AM EST) Anatomical Region Laterality Modality Other Narrative 09/26/2016 12:00 AM EST Ordered by an unspecified provider. Scanning Provider MEDIA MGR SCAN EXT O RDR/RSLT * Potassium (09/25/2016 4:32 AM EST) [facility] [address] Potassium 4.4 3.5 - 5.0 mmol/L ST. [...] CHEMISTRY ORDERABLE S [facility] [place] [address] * (ABNORMAL) Differential, Automated (09/24/2016 9:56 AM EST) Neutrophil % 76.8 % [facility] Neutrophil Absolute 7.79(H) 1.70 - 6.10 x10(3)/mc L [facility] Lymph % 11.1 % [facility] Lymphocytes Abs 1.1 0.9 - 3.2 x10(3)/mc L [facility] Monocyte % 8.5 % [facility] Monocyte Abs 0.9 0.3 - 0.9 x10(3)/mc L [facility] Eos % 0.5 % [facility] Eosinophils Abs 0.0 0.0 - 0.4 x10(3)/[facility]OR[facility] Basophil % 0.2 % [facility] Baso Absolute 0.0 0.0 - 0.1 x10(3)/[facility] LAB[facility] Immature Gran % 2.90 % [facility] Comment: Immature granulocytes(IG's)percentage and absolute count will include metamyelocytes, myelocytes, and promyelocytes. Blood smears from CBCs yielding IG's will be scanned manually for concordance. If this scan disagrees with the automated IG or if promyelocytes are noted, a manual differential will be performed. Immature Gran Absolute 0.29(H) 0.00 - 0.04 x10(3)/[facility] LABORAT[facility] Blood specimen (specimen) 09/24/2016 9:56 AM EST 09/24/2016 10:04 AM EST Narrative Resulting Agency Comment Spec In Lab Alirio Esparza MD HEMATOLOGY ORDERABL ES [facility] [place] [address] * (ABNORMAL) Hemogram (09/24/2016 9:56 AM EST) White Blood Cell 10.1(H) 4.0 - 9.5 x10(3)/[facility] Red Blood Cell 2.87(L) 4.00 - 5.21 x10(6)/[facility] Hemoglobin 9.4(L) 11.7 - [facility] NRBC% auto 1.1 % [facility] NRBC Absolute 0.110(H) 0.000 - 0.000 x10(3)/mc L [facility] Blood specimen (specimen) 09/24/2016 9:56 AM EST 09/24/2016 10:04 AM EST Narrative Resulting Agency Comment Spec In Lab Alirio Esparza MD HEMATOLOGY ORDERABL ES [facility] [place] [id number] * (ABNORMAL) Basic Metabolic Panel (non-fasting) (09/24/2016 [...] intervals supplied above were not validated at [facility]. Results from pediatric patients should be interpreted [...] the following links into your internet browser. [email or web address] Blood specimen (specimen) 09/24/2016 9:56 AM EST 09/24/2016 10:04 AM EST Narrative Resulting Agency Comment Spec In Lab Alirio Esparza MD CHEMISTRY ORDERABLE S [facility] [place] [address] * XR Chest PA & Lateral (Generic) [...] ORDERABLES * Potassium (09/23/2016 3:31 AM EST) [facility] Signature Potassium 4.5 3.5 - 5.0 mmol/L [facility]. [...] [facility]/ZIP Co de Phone Number [facility] [place] [address] * POCT Glucose (09/22/2016 8:17 AM EST) [facility] Signature Glucose, POC 131 65 - 199 mg/dL [facility] Comment: Supplemental ranges: <140 mg/dL before meals <180 mg/dL all other times of the day Blood specimen (specimen) 09/22/2016 8:17 AM EST 09/22/2016 8:17 AM EST Alirio Esparza MD POINT OF CARE TEST ORDERABLES [facility] [place] [address] * POCT Glucose (09/22/2016 4:01 AM EST) [facility] [address] [facility] Glucose, POC 135 65 - 199 mg/dL [facility] Comment: Supplemental ranges: <140 mg/dL before meals <180 mg/dL all other times of the day Blood specimen (specimen) 09/22/2016 4:01 AM EST 09/22/2016 4:01 AM EST Alirio Esparza MD POINT OF CARE TEST ORDERABLES Performing Organization Address [facility] Co de Phone Number [facility] [place] [address] * Scan, Peripheral Blood (09/22/2016 4:00 AM EST) [facility] [address] Plat estimate Normal [facility] RBC Morphology Abnormal [facility] Macrocyte 1-5 /HPF [facility] Plat, Giant Less than 1 /HPF [facility] Blood specimen (specimen) 09/22/2016 4:00 AM EST 09/22/2016 4:34 AM EST Narrative Resulting Agency Comment Spec In Lab Alirio Esparza MD HEMATOLOGY ORDERABL ES Performing Organization Address [facility] de Phone Number [facility] [place] [address] * Electrolytes panel (09/22/2016 4:00 AM EST) [facility] [address] Sodium 145 135 - 145 mmol/L ST. [...] CHEMISTRY ORDERABLE S [facility] [place] [address] * (ABNORMAL) Differential, Automated (09/22/2016 4:00 AM EST) Neutrophil % 70.9 % [facility] Neutrophil Absolute 5.33 1.70 - 6.10 x10(3)/mc L [facility] Lymph % 9.1 % [facility] Lymphocytes Abs 0.7(L) 0.9 - 3.2 x10(3)/mc L [facility] Monocyte % 18.0 % [facility] Monocyte Abs 1.4(H) 0.3 - 0.9 x10(3)/ L [facility] Eos % 0.0 % [facility] Eosinophils Abs 0.0 0.0 - 0.4 x10(3)/[facility] LABORATORY Basophil % 0.1 [...] HEMATOLOGY ORDERABL ES [facility] [place] [address] * (ABNORMAL) Hemogram (09/22/2016 4:00 AM EST) [facility] NRBC% auto 0.3 % [facility] NRBC Absolute 0.020(H) 0.000 - 0.000 x10(3)/mc L [facility] Blood specimen (specimen) 09/22/2016 4:00 AM EST 09/22/2016 4:34 AM EST Narrative Resulting Agency Comment Spec In Lab Alirio Esparza MD HEMATOLOGY ORDERABL ES [facility] [place] [address] * (ABNORMAL) Cardiac Enzymes (09/22/2016 4:00 AM EST) [facility] [address] [facility] Troponin-T 0.13(H) <=0.03 ng/mL [facility] [...] consensus document of the Joint Society of Cardiology/[place] College of Cardiology Committee for the redefinition of myocardial infarction. ??Journal of the [place] College of Cardiology 2000; 36: 959-969] Creatine Kinase 338(H) 0 - 160 unit/L [facility] Blood specimen (specimen) 09/22/2016 4:00 AM EST 09/22/2016 4:34 AM EST Narrative Resulting Agency Comment Spec In Lab Alirio Esparza MD CHEMISTRY ORDERABLE S Performing Organization Address City/State/[facility] Co de Phone Number [facility] [place] [address] * (ABNORMAL) Glucose, fasting (09/22/2016 4:00 AM EST) [facility] [address] Glucose Fasting 137(H) 65 - 99 mg/dL [...] of Diabetes Mellitus, Position Statement from the [place] Diabetes Association. ??Diabetes Care, Volume 33, Supplement 1, Aug 2009 Blood specimen (specimen) 09/22/2016 4:00 AM EST 09/22/2016 4:34 AM EST Narrative Resulting Agency Comment Spec In Lab Alirio Esparza MD CHEMISTRY ORDERABLE S Performing Organization Address [facility] Co de Phone Number [facility] [place] [address] * (ABNORMAL) Creatinine (09/22/2016 4:00 AM EST) [facility] [address] Creatinine 0.69(L) 0.70 - 1.20 mg/dL [facility] Comment: Please note that the pediatric reference intervals supplied above were not validated at [facility]. Results from pediatric patients should be interpreted in conjunction to the patient's age, height and muscle mass. Est Glomerular Filtration Rate >60 >=60 PORTER [...] the following links into your internet browser. [email or web address] Blood specimen (specimen) 09/22/2016 4:00 AM EST 09/22/2016 4:34 AM EST Narrative Resulting Agency Comment Spec In Lab Alirio Esparza MD CHEMISTRY ORDERABLE S Performing Organization Address [facility] Co de Phone Number [facility] [place] [address] * BUN (09/22/2016 4:00 AM EST) Blood Urea Nitrogen 10 8 - 18 mg/dL [facility] Blood specimen (specimen) 09/22/2016 4:00 AM EST 09/22/2016 4:34 AM EST Narrative Resulting Agency Comment Spec In Lab Alirio Esparza MD CHEMISTRY ORDERABLE S Performing Organization Address City/[facility]/ZIP Co de Phone Number [facility] [place] [address] * POCT Glucose (09/21/2016 9:59 PM EST) Glucose, POC 146 65 - 199 mg/dL [facility] Comment: Supplemental ranges: <140 mg/dL before meals <180 mg/dL all other times of the day Blood specimen (specimen) 09/21/2016 9:59 PM EST 09/21/2016 9:59 PM EST Alirio Esparza MD POINT OF CARE TEST ORDERABLES Performing Organization Address [facility]/ZIP Co de Phone Number [facility] [place] [address] * POCT Glucose (09/21/2016 7:26 PM EST) Glucose, POC 152 65 - 199 mg/dL [facility] Comment: Supplemental ranges: <140 mg/dL before meals <180 mg/dL all other times of the day Blood specimen (specimen) 09/21/2016 7:26 PM EST 09/21/2016 7:26 PM EST Alirio Esparza MD POINT OF CARE TEST ORDERABLES Performing Organization Address City/[facility]/ZIP Co de Phone Number [facility] [place] [address] * POCT Glucose (09/21/2016 6:00 PM EST) Glucose, POC 146 65 - 199 mg/dL [facility] Comment: Supplemental ranges: <140 mg/dL before meals <180 mg/dL all other times of the day Blood specimen (specimen) 09/21/2016 6:00 PM EST 09/21/2016 6:00 PM EST Alirio Esparza MD POINT OF CARE TEST ORDERABLES [facility] [place] [address] * (ABNORMAL) BLOOD GAS 2 ARTERIAL (09/21/2016 [...] [facility] PF Ratio Art 270 [facility] Blood specimen (specimen) 09/21/2016 4:42 PM EST 09/21/2016 4:42 PM EST Alirio Esparza MD POINT OF CARE TEST ORDERABLES Performing Organization Address City/[facility]/ZIP Co de Phone Number [facility] [place] [address] * POCT Glucose (09/21/2016 4:07 PM EST) Glucose, POC 150 65 - 199 mg/dL [facility] Comment: Supplemental ranges: <140 mg/dL before meals <180 mg/dL all other times of the day Blood specimen (specimen) 09/21/2016 4:07 PM EST 09/21/2016 4:07 PM EST Alirio Esparza MD POINT OF CARE TEST ORDERABLES Performing Organization Address [facility] Co de Phone Number [facility] [place] [address] * (ABNORMAL) Hemoglobin (09/21/2016 4:05 PM EST) Hemoglobin 9.9(L) 11.7 - 15.5 gm/dL [facility] Blood specimen (specimen) 09/21/2016 4:05 PM EST 09/21/2016 4:20 PM EST Narrative Resulting Agency Comment Spec In Lab Alirio Esparza MD HEMATOLOGY ORDERABL ES Performing Organization Address City/[facility]/ZIP Co de Phone Number [facility] [place] [address] * Potassium (09/21/2016 4:05 PM EST) Potassium [...] [facility]/ZIP Co de Phone Number [facility] [place] [address] * POCT Glucose (09/21/2016 2:52 PM EST) Glucose, POC 117 65 - 199 mg/dL [facility] Comment: Supplemental ranges: <140 mg/dL before meals <180 mg/dL all other times of the day Blood specimen (specimen) 09/21/2016 2:52 PM EST 09/21/2016 2:52 PM EST Alirio Esparza MD POINT OF CARE TEST ORDERABLES Performing Organization Address [facility]/ZIP Co de Phone Number [facility] [place] [address] * POCT Glucose (09/21/2016 1:51 PM EST) Glucose, POC 108 65 - 199 mg/dL [facility] Comment: Supplemental ranges: <140 mg/dL before meals <180 mg/dL all other times of the day Blood specimen (specimen) 09/21/2016 1:51 PM EST 09/21/2016 1:51 PM EST Alirio Esparza MD POINT OF CARE TEST ORDERABLES Performing Organization Address City/[facility]/ZIP Co de Phone Number [facility] [place] [address] * POCT Glucose (09/21/2016 12:54 PM EST) Glucose, POC 128 65 - 199 mg/dL [facility] Comment: Supplemental ranges: <140 mg/dL before meals <180 mg/dL all other times of the day Blood specimen (specimen) 09/21/2016 12:54 PM EST 09/21/2016 12:54 PM EST Alirio Esparza MD POINT OF CARE TEST ORDERABLES [facility] [address] [place] [address] * EKG 12 Lead (09/21/2016 12:26 PM EST) Ventricular rate 87 BPM MUSE SYSTEM Atrial Rate 87 BPM MUSE SYSTEM P-R Interval 256 ms MUSE SYSTEM QRS Duration 90 ms MUSE SYSTEM Q-T Interval 406 ms MUSE SYSTEM QTC Calculated (Bezet) 488 ms MUSE SYSTEM Calculated P Exeter 24 degrees MUSE SYSTEM Calculated R Exeter 21 degrees MUSE SYSTEM Calculated T Exeter -5 degrees MUSE SYSTEM INTERPRETATION Sinus rhythm [...] course of the esophagus and below the [id number]. There is a right IJ PA catheter [...] the course of theesophagus and below the hicvo-yv-arae. There is a right IJ PA catheter [...] [facility] PF Ratio Art 356 [facility] Blood specimen (specimen) 09/21/2016 12:20 PM EST 09/21/2016 12:20 PM EST Alirio Esparza MD POINT OF CARE TEST ORDERABLES Performing Organization Address City/State/[facility] Co de Phone Number [facility] [place] [address] * (ABNORMAL) BLOOD GAS 2 ARTERIAL (09/21/2016 [...] [facility] FIO2 Art 95 % [facility] Flow Art 0.7 LPM [facility] PF Ratio Art 313 [facility] Temp Art 36.7 Celsius [facility] Blood specimen (specimen) 09/21/2016 10:54 AM EST 09/21/2016 10:54 AM EST Alirio Esparza MD POINT OF CARE TEST ORDERABLES [facility] [place] [address] * Thrombin time (09/21/2016 10:50 AM EST) [...] [facility]/ZIP Co de Phone Number [facility] [place] [address] * Fibrinogen (09/21/2016 10:50 AM EST) Pathologist [facility] Fibrinogen 228 180 - 510 mg/dL ST. [...] HEMATOLOGY ORDERABLE S [facility] [place] [address] * APTT (09/21/2016 10:50 AM EST) Partial Thromboplastin Time 32 25 - [address] [facility] Comment: The recommended therapeutic range for full dose, unfractionated heparin at [facility] is 80 ? 114 seconds. The use [...] S Performing Organization Address [facility] Co de Phone Number [facility] [place] [address] * (ABNORMAL) Prothrombin Time (09/21/2016 10:50 AM [...] S Performing Organization Address [facility] Co de Phone Number [facility] [place] [address] * (ABNORMAL) Hemogram (09/21/2016 10:50 AM EST) [...] [facility] NRBC% auto 0.1 % [facility] NRBC Absolute 0.020(H) 0.000 - 0.000 x10(3)/mc L [facility] Blood specimen (specimen) 09/21/2016 10:50 AM EST 09/21/2016 10:56 AM EST Narrative Resulting Agency Comment Spec In Lab Luis Enrique Quarles MD HEMATOLOGY ORDERABLE S Performing Organization Address City/[facility] Co de Phone Number [facility] [place] [address] * Prepare Platelets, Apheresis (09/21/2016 10:30 AM EST) Pathologist [facility] Dispensed? Yes [facility] Blood specimen (specimen) 09/21/2016 10:30 AM EST 09/21/2016 10:28 AM EST Alirio Esparza MD BLOOD BANK PRODUCT ORDERABLES Performing Organization Address City/[facility]/ZIP Co de Phone Number [facility] [place] [address] * (ABNORMAL) BLOOD GAS 2 ARTERIAL (09/21/2016 10:05 AM EST) pH, Arterial 7.33(L) 7.35 - 7.45 [facility] PCO2, Arterial 54(Critic al) 35 - [address] [facility] Comment:Noted by reed or wind instrument repairer. PO2, Arterial 218(H) 85 - [...] [facility] Comment: Noted by reed or [...] [facility] Temp Art 37.0 Celsius [facility] Blood specimen (specimen) 09/21/2016 10:05 AM EST 09/21/2016 10:05 AM EST Alirio Esparza MD POINT OF CARE TEST ORDERABLES [facility] [place] [address] * (ABNORMAL) BLOOD GAS 2 ARTERIAL (09/21/2016 9:44 AM EST) pH, Arterial 7.22(Criti gabrielle) 7.35 - 7.45 [facility] Comment:Noted by reed or wind instrument repairer. PCO2, Arterial 70(Critica l) 35 - [address] [facility] Comment:Noted by reed or wind instrument repairer. PO2, Arterial 224(H) 85 - [...] ORDERABLES Performing Organization Address [facility] Phone Number [facility] [place] [address] * (ABNORMAL) Hemoglobin (09/21/2016 9:42 AM EST) Hemoglobin 7.2(L) 11.7 - 15.5 gm/dL [facility] Blood specimen (specimen) 09/21/2016 9:42 AM EST 09/21/2016 9:51 AM EST Narrative Resulting Agency Comment Spec In Lab Alirio Esparza MD HEMATOLOGY ORDERABL ES Performing Organization Address [facility] Number [facility] [place] [address] * Platelet count (09/21/2016 9:42 AM EST) Platelet 159 145 - 357 x10(3)/mc L [facility] Immature Plt % 1.6 0.0 - 7.4 % [facility] Comment: Limitation of the Immature Platelet Fraction (IPF)-May be less reliable when the platelet count is less than 74z712/uL due to statistical imprecision. The IPF value [...] in a decreased state of production. References: [employer] The Clinical Value of the Immature Platelet Fraction (IPF) in Cell Recovery Document Number 10-1143 12/2010 [employer] The Role of the Immature Platelet Fraction (IPF) in the Differential Diagnosis of Thrombocytopenia, Document [id number] V05 P012/13 Blood specimen (specimen) 09/21/2016 9:42 AM EST 09/21/2016 9:51 AM EST Narrative Resulting Agency Comment Spec In Lab Alirio Esparza MD HEMATOLOGY ORDERABL ES Performing Organization Address [facility] Co de Phone Number [facility] [place] [address] * (ABNORMAL) Hematocrit (09/21/2016 9:42 AM EST) [...] ES Performing Organization Address [facility] Co de Phone Number [facility] [place] [address] * Fibrinogen (09/21/2016 9:42 AM EST) Fibrinogen [...] HEMATOLOGY ORDERABL ES [facility] [place] [address] * (ABNORMAL) BLOOD GAS 2 ARTERIAL (09/21/2016 [facility] Temp Art 37.0 Celsius [facility] Blood specimen (specimen) 09/21/2016 9:10 AM EST 09/21/2016 9:10 AM EST Alirio Esparza MD POINT OF CARE TEST ORDERABLES [facility] [place] [address] * Surgical Pathology Report (09/21/2016 9:09 AM EST) Final Diagnosis [id number] ?Location: 3T The signing pathologist has (i) [...] Esparza MD PATHOLOGY/CYTOLOGY ORDERABLES Performing Organization Address City/[facility]/ZIP Co de Phone Number [facility] [place] [address] * Specimen to Pathology (surgical or derm) (09/21/2016 9:09 AM EST) AP Specimen 09/21/2016 9:09 AM EST 09/21/2016 9:[address] [facility] - 09/21/2016 9:09 AM EST Specimen requisition ordered. ??Separate Pathology report to follow Alirio Esparza MD PATHOLOGY/CYTOLOGY ORDERABLES Performing Organization Address [facility] [place] [address] * (ABNORMAL) BLOOD GAS 2 ARTERIAL (09/21/2016 [...] CARE TEST ORDERABLES [facility] [place] [address] * (ABNORMAL) BLOOD GAS 2 ARTERIAL (09/21/2016 [...] [facility] FIO2 Art 95 % [facility] Flow Art 1.1 LPM [facility] PF Ratio Art 298 [facility] Temp Art 35.6 Celsius [facility] Blood specimen (specimen) 09/21/2016 8:18 AM EST 09/21/2016 8:18 AM EST Alirio Esparza MD POINT OF CARE TEST ORDERABLES [facility] [place] [address] * Prepare RBC (09/21/2016 7:05 AM EST) Dispensed? Yes [facility] Blood specimen (specimen) 09/21/2016 7:05 AM EST 09/21/2016 7:02 AM EST Alirio Esparza MD BLOOD BANK PRODUCT ORDERABLES [facility] [place] [address] * POCT Glucose (09/21/2016 6:42 AM EST) Glucose, POC 104 65 - 199 mg/dL [facility] Comment: Supplemental ranges: <140 mg/dL before meals <180 mg/dL all other times of the day Blood specimen (specimen) 09/21/2016 6:42 AM EST 09/21/2016 6:42 AM EST Alirio Esparza MD POINT OF CARE TEST ORDERABLES Performing Organization Address [facility] Co de Phone Number [facility] [place] [address] documented in this encounter Visit Diagnoses Diagnosis [...] dose on Wed09/21/16 at 1230, Until Discontinued, [place] teeth, Routine Given 09/25/2016 9:40 AM EST [...] if phenyleprine and/or vasopressin ineffective.Call pager # [phone] if initiated., Routine Rate/Dose Change 09/21/2016 2:27 [...] L/min/M2. Maximum volume 2 L. Call warehouse packer for additional fluid orders: pager #[phone]. Rate/Dose Verify 09/22/2016 10:00 AM EST 10 [...] dose on Wed09/21/16 at 1230, Until Discontinued, [place] teeth, Routine 0900 (Not Given - Provider: [...] Miguel RN) 08 (Given - Provider: Marek Barens, VALDO) 0941 (Given - Provider: Joselyn Caceres, [...] Routine 0300 (Not Given - Provider: Marcie Frazeir RN - Reason: See comment - Comment: [...] Routine documented in this encounter Care Teams Command And Control Systems Integrator Relationship Specialty Start Date End Date Deborah Quiroga, ANURAG PCP - General Family Medicine 03/24/16 02/04/23 documented as of this encounter
--- OUTSIDE RECORDS SUMMARY | 2024-06-27 15:22 | XMS_ITS | Encounter Summary ---
[place] [address] Care Team Providers Care Pet Ambassador Name Role Phone Ashley Quirogan Cornelius ANURAG Primary Care Provider [phone] Reason for Visit * Reason Onset Date Comments Medical Care Coordination 09/14/2016 Encounter Details Date Type Department Care Team (Late st Contact Info) Description 09/14/2016 Telephone Hematology [place] [phone] Alexandrea Greenwood RN Medical Care Coordination Social [...] 09/14/2016 9:10 AM EST Message received from pocket secretary assembler: Injection/Infusion Referral Call placed to [facility] Infusion Room Spoke charis Bragg. Services to be provided for pt are: Miles 09/16/16 Mahsa confirmed they would provide services to pt and would contact with appointment time. Pt aware to expect the phone call ??orders faxed to [phone]). documented in this encounter Plan of Treatment Upcoming Encounters Date Type Department Care Team (Late st Contact Info) Description 11/02/2024 12:00 PM EDT Appointment [place] [address] 11/02/2024 1:00 PM EDT Office [place] [address] Magdalena Peralta MD [facility] [place] [address] 03/01/2025 4:15 PM EDT Office Visit Dermatology at [place] [address] [facility] [place] [phone] Marek Bonilla MD [address], [place] [address] documented as of this encounter Visit Diagnoses Not on filedocumented in this encounter Care Teams Pet Ambassador Relationship Specialty Start Date End Date Deborah Quiroga APRN PCP - General Family Medicine 03/24/16 02/04/23 documented as of this encounter
--- OUTSIDE RECORDS SUMMARY | 2024-06-27 15:22 | XMS_ITS | Encounter Summary ---
[place] [address] Care Team Providers Care Sterilization Tech Name Role Phone Junaid Deborah Shields APRN Primary Care Provider [phone] Reason for Visit * Auth/Cert Specialty Diagnoses / Procedures Referred By Crispin t Referred To Contact Diagnoses Aortic stenosis Procedures PRO REPLACE AORT VALV, PROSTH VALV @REPLACE AORTIC VALVE, OPEN, W\CPB, W\PROSTHETIC VALVE (WRVU 41.32) Referral ID Status Reason Start Date Expiration Date Visits Re quested Visits Authorized [id number] 1 1 Encounter Details Date Type Department Care Team (Late st Contact Info) Description 09/21/2016 7:30 AM EST - 09/21/2016 12:04 PM EST [place] [address] Alirio Esparza MD @REPLACE AORTIC VALVE, OPEN, [...] in 1-2 weeks. Patient to follow-up with [employer], Dr. Antelmo Burrell, in two weeks. Patient to follow-up with Cardiac Surgery, Dr. Alirio Esparza, to be scheduled for before 10/19/2016, with CXR, EKG, and Echo. Inpatient Provider Contact Information: [facility] Section of Cardiac Surgery [facility] [place] [facility] [address] FAX [phone] Discharge Diagnoses (Hospital Problems) Primary Diagnoses: Secondary [...] 41.32) performed by Alirio Esparza MD at [facility] MAIN OR ??? Pro aortoplas for supravalv sten N/A 09/21/2016 @AORTOPLASTY FOR SUPRAVALVULAR STENOSIS (WRVU 29.33) performed by Alirio Esparza MD at [facility] MAIN OR Prior To Admission [...] [facility] on 09/21/2016 via the Same Day [...] Esparza and/or the Cardiac Surgery Physician Technical Operations Manager Team may be reached at . [...] to your dentist. Please refer to the [place] [employer] [...] Dr. Alirio Jones. You may use a [place] Track or treadmill but avoid any pulling [...] low fat, low cholesterol, [place] [employer] Diet. Driving: No driving until [...] the outpatient Phase 2 Cardiac Rehabilitation at [facility]. The patient agrees to a referral to this program. The referral will be sent at discharge and the patient should be contacted by the program within 1- 2 weeks from discharge. Future Appointments and Orders Future Appointments Provider Department Dept Phone 11/20/2016 11:30 AM Markel Borjas MD [facility] [phone] Future Orders Complete By Expires Echocardiogram Transthoracic([place]) [LFE393 Custom] 10/18/2016 (Approximate) 09/18/2017 Process Instructions: If the Echocardiogram is to be PERFORMED in a DH location other than [place]--STOP and order [id number], Echocardiogram South/External. Scheduling Instructions: Questions: Is a Bubble Study requested?: No Does the patient have Congenital Heart Disease?: No Does patient require sedation?: None GA rationale: Should this service be billed to the research sponsor?: EKG 12 Lead [EKG1 Custom] 10/18/2016 (Approximate) 09/25/2017 Process Instructions: Scheduling Instructions: Questions: Which DH location will this be performed?: [place] Is a rhythm strip needed?: No If EKG Reason is Pre-op Evaluation, indicate diagnosis for surgery.: Should this service be billed to the research sponsor?: XR Chest PA & Lateral (Generic) [93424 [id number] Custom] 10/18/2016 (Approximate) 09/25/2017 Process Instructions: Scheduling Instructions: Questions: Where will study be performed?: [facility]- Radiology Portable exam?: No Reason for exam and clinical history: s/p AVReplacement, patch annuloplasty 1 month f/u Other pertinent information: Stat read required?: Date of injury if applicable: Requested Time: Referral to Cardiac Rehab [WSH264 Custom] As directed Process Instructions: If no progress note charted, please enter Clinical details in comments. Scheduling Instructions: Questions: My question or request is: s/p AVR. Cardiac rehab at [facility] Referral to Home Health - at DISCHARGE [NSQ0065 CPT(R)] As directed Process Instructions: Scheduling Instructions: Comments: DOCUMENTATION FOR VNA SERVICES (INCLUDING THOSE PATIENTS WITH MEDICARE COVERAGE REQUIRING HOME VNA SERVICES AND/OR HOSPICE SERVICES) PATIENT'S LOCATION: Purnimakary Gallego[address] [address] (home) No relevant phone numbers on file. [employer]'s Name: self In discussion with the attending physician, it is certified that this patient is under their care and that they, or a Nurse Practitioner, or Physician Technical Operations Manager who is working directly with them, [...] for services as follows: HOME HEALTH AGENCY: [facility] PHONE: [phone] FAX: [phone] RN orders: Cardiopulmonary assessment, incisional assessment, assess [...] issues please call the Cardiac SurgeryOffice at [phone] FOR MEDICARE ONLY: In discussion with the [...] AFTER 09/30/16 Signed: Crispin Aranda PA-C 09/25/2016 [facility] Section of Cardiac Surgery [facility] [address] FAX [phone] Date: 09/25/2016 CC: ANURAG Alford Caryn E, APRN [address] [place] [address] documented in this encounter Discharge Instructions * [...] Esparza and/or the Cardiac Surgery Physician Technical Operations Manager Team may be reached at . [...] to your dentist. Please refer to the [place] [employer] [...] Dr. Alirio Jones. You may use a [place] Track or treadmill but avoid any pulling [...] low fat, low cholesterol, [place] [employer] Diet. Driving: No driving until [...] the outpatient Phase 2 Cardiac Rehabilitation at [facility]. The patient agrees to a referral [...] PM EST Cardiac Surgery Progress Note: ID: [id number] S/p AVR, patch aortoplasty POD#2. PMH of [...] Gas) No results found for: PHART, PO2ART, ZMN2TSG Assessment/Plan: TPW out this am. (+) BM. [...] Signed: Crispin Aranda PA-C 09/24/2016 Team pager: [phone] after 5pm [facility] Section of Cardiac Surgery * Leonor Henson S, SPLITTING MACHINE TENDER - 09/23/2016 10:48 AM EST Cardiac Surgery Progress Note: ID: [id number] s/p AVR, patch aortoplasty POD#2. PMH of [...] Gas) No results found for: PHART, PO2ART, VHH4ZFO Assessment/Plan: s/p AVR, patch aortoplasty POD#2. PMH of Neutropenia, HLD, HTN, Depression, obesity, . Transferred from [facility] yesterday and doing well. Pathway. Will dc [...] Leonor Henson APRN [facility] Section of Cardiac Surgery Date: 09/23/2016 * Nico Palacios PA - 09/22/2016 9:56 AM EST Cardiac Surgery Progress Note: ID: [id number] s/p AVR, patch aortoplasty POD#1. PMH of [...] NT, ND, soft. Ext: Moves all extremities. [place], well perfused. Incisions: C/D/I Tubes/Lines/Drains: PIV, [...] Signed: EKATERINA KIM [facility] Section of Cardiac Surgery Date: 09/22/2016 [...] left pleural effusion. T/L/D Al ETT CVL [place] CT Pacing wires ASSESSMENT, MANAGEMENT, and DECISION [...] Outcome (s) achieved Date Met: 09/25/16 09/25/16 6486 Coping/Psychosocial Plan Of Care Reviewed With patient [...] services Lalitha Cohen [facility] Pager: [phone] Inpatient Physical Therapy Patient status, treatment interventions, and goals discussed with student. I am in agreement with all details and associated flowsheet rows as documented and was present for all aspects of the patient treatment session. Nery Jaramillo, CANDY Pager [phone] Problem: Acute Rehab Services Goal & Intervention Plan Goal: Bed Mobility Goal Stand Alone Therapy Goal Outcome: Ongoing (Interventions Implemented as Appropriate) 09/22/16 1611 09/25/16 0947 Bed Mobility Goal Bed Mobility Goal, Time to Achieve 4 days -- Bed Mobility Goal, Activity Type scoot/bridge;supine to sit/sit to supine -- Bed Mobility Goal, Gomer Level independent -- Bed Mobility Goal, Additional [...] Achieve 4 days -- Gait Training Goal, Gomer Level independent -- Gait Training Goal, Distance [...] assist, home with home health [facility] Pager: [phone] Inpatient Physical Therapy Patient status, treatment interventions, and goals discussed with student. I am in agreement with all details and associated flowsheet rows as documented and was present for all aspects of the patient treatment session. Nery Jaramillo, HAT LINING PASTER Pager [phone] Problem: Acute Rehab Services Goal & Intervention Plan Goal: Bed Mobility Goal Stand Alone Therapy Goal Outcome: Ongoing (Interventions Implemented as Appropriate) 09/22/16161009/23/161411 Bed Mobility Goal Bed Mobility Goal, Time to Achieve 4 days -- Bed Mobility Goal, Activity Type scoot/bridge;supine to sit/sit to supine -- Bed Mobility Goal, Gomer Level independent -- Bed Mobility Goal, Additional [...] Achieve 4 days -- Gait Training Goal, Gomer Level independent -- Gait Training Goal, Distance [...] days -- Transfer Training Goal, Activity Type lws-yr-cewfu/sxobz-dl-mpi;vpn-ws-qlnch/fvgki-id-uhp -- Transfer Train Goal, Gomer Level independent -- Transfer Training Goal, Additional Goal abides sternal precautions -- Transfer Training Goal, Outcome -- goal met * Consult Note - Jana Crenshaw RN - 09/23/2016 9:41 AM EST [facility] CARDIAC [facility]ILITATION Purnima Thacker was seen today regarding participation in the outpatient Phase 2 Cardiac Rehabilitation at [facility]. The patient agrees to a referral [...] Another Service: (cardiac rehab) NICOLE HERNANDEZ, PT Pager:[phone] Inpatient Physical Therapy Problem: Acute Rehab Services Goal & Intervention Plan Goal: Bed Mobility Goal Stand Alone Therapy Goal Outcome: Ongoing (Interventions Implemented as Appropriate) 09/22/161610 Bed Mobility Goal Bed Mobility Goal, Time to Achieve 4 days Bed Mobility Goal, Activity Type scoot/bridge;supine to sit/sit to supine Bed Mobility Goal, Gomer Level independent Bed Mobility Goal, Additional Goal able to abide sternal precautions during transfers Goal: Gait Training Goal Stand Alone Therapy Goal Outcome: Ongoing (Interventions Implemented as Appropriate) 09/22/161610 Gait Training Goal Gait Training Goal, Date Established 09/22/16 Gait Training Goal, Time to Achieve 4 days Gait Training Goal, Gomer Level independent Gait Training Goal, Distance to Achieve ascend and descends 2 steps independently Goal: Goal Transfer Training Stand Alone Therapy Goal Outcome: Ongoing (Interventions Implemented as Appropriate) 09/22/161610 Goal Transfer Training Transfer Training Goal, Time to Achieve 4 days Transfer Training Goal, Activity Type qcr-xw-dtfyd/mkokt-xn-wdy;pkl-bk-okeej/rlbnn-it-xby Transfer Train Goal, Gomer Level independent Transfer Training Goal, Additional Goal [...] of completing AD's at home, chooses her geuvxo-ye-ftv, Martha Thacker (home) for her DPOAH, 2nd choice in friend, Nitesh Rad, [place], [place] Current Coping/Education/Information Needs: patient sitting [...] close by, Rashad & Raymond, and her lbskeb-ym-yhh Martha Thacker who she has chosen to be her DPOAH. Also has a friend Nitesh Leory who lives in [place], [place], also her DPOAH choice. Behavioral Health History: none on file in e[facility] Substance Use/Abuse: none on file in [facility] Other Pertinent/Service Specific Information: none Health/Prescription Coverage: Primary Insurance: [employer] Secondary Insurance: none Prescription Coverage: yes, per patient no issues Preferred Pharmacy: ?? Other: none Primary Care Provider: Deborah Quiroga, SPLITTING MACHINE TENDER [phone] Patient/Caregiver Goals of Treatment: per medical team [...] referrals are placed. Patient requests referral to: [facility] PHONE: [phone] FAX: [phone] Expected date of discharge: Fri/Sat? CM called VNA to confirm referral, talked with VALDO Bunn/intake who stated she was familiar w/patient & would monitor her progress through curaspan. Referral routed to the Patient Transporter for matching with agency/vendor and to provide any required information. A member of the Care Management team will continue to monitor progress, follow for continuity of care and assist with transition of care planning. Amanda Moreno RN Pager: [phone] * Op Note - Alirio Esparza MD - 09/21/2016 12:53 PM EST 09/23/2016 Purnima Thcaker 1955 [id number] Preoperative Diagnosis: Symptomatic aortic stenosis Postoperative Diagnosis: Symptomatic aortic stenosis Procedure: Aortic valve replacement: Bovine Pericardial 25 mm Surgeon: Alirio Esparza M.D. Technical Operations Manager: Philip BALL Anesthesia: General endotracheal anesthesia [...] patient was transported to the [facility] on levo. All counts were correct. * [...] Operative Note Patient Name: Purnima Thacker : [id number] MR#: [id number] Case Date: 09/21/2016 Surgeon: Surgeon(s) and Role: * Alirio Esparza MD - Primary * Nico Palacios PA - Physician Technical Operations Manager Preoperative diagnosis: Postoperative diagnosis: Procedure(s) (LRB): [...] 11/02/2024 12:00 PM EDT [place]ointment [place] [address] 11/02/2024 1:00 PM EDT Office [place] [phone] Magdalena Peralta MD [facility] [place] [address] 03/01/2025 4:15 PM EDT Office Visit Dermatology at [place] [address] [place] [id number] Marek Bonilla MD [address], [address] [place] [address] Scheduled Orders Name Type Priority Associated Diagnoses [...] IMPLANTABLE DEVICES SCAN 09/26/2016 12:00 AM EST HOME STAGER SCAN 09/26/2016 12:00 AM EST POTASSIUM Routine [...] SCAN EXT O RDR/RSLT * SCAN DOC: HOME STAGER (09/26/2016 12:00 AM EST) Anatomical Region Laterality Modality Other Narrative 09/26/2016 12:00 AM EST Ordered by an unspecified provider. Scanning Provider MEDIA MGR SCAN EXT O RDR/RSLT * Potassium (09/25/2016 4:32 AM EST) Pathologist [facility] Potassium 4.4 3.5 - 5.0 mmol/L [facility] [...] City/State/[facility] Co de Phone Number [facility] [place] [address] * (ABNORMAL) Differential, Automated (09/24/2016 9:56 AM EST) Pathologist [facility] Neutrophil % 76.8 % [facility] Neutrophil Absolute 7.79(H) 1.70 - 6.10 x10(3)/mc L [facility] Lymph % 11.1 % [facility] Lymphocytes Abs 1.1 0.9 - 3.2 x10(3)/mc L [facility] Monocyte % 8.5 % [facility] Monocyte Abs 0.9 0.3 - 0.9 x10(3)/mc L [facility] Eos % 0.5 % [facility] Eosinophils Abs 0.0 0.0 - 0.4 x10(3)/mc L [facility] Basophil % 0.2 % [facility] Baso Absolute 0.0 0.0 - 0.1 x10(3)/mc L [facility] Immature Gran % 2.90 % [facility] Comment: Immature granulocytes(IG's)percentage and absolute count will include metamyelocytes, myelocytes, and promyelocytes. Blood smears from CBCs yielding IG's will be scanned manually for concordance. If this scan disagrees with the automated IG or if promyelocytes are noted, a manual differential will be performed. Immature Gran Absolute 0.29(H) 0.00 - 0.04 x10(3)/mc L [facility] Blood specimen (specimen) 09/24/2016 9:56 AM EST 09/24/2016 10:04 AM EST Narrative Resulting Agency Comment Spec In Lab Alirio Esparza MD HEMATOLOGY ORDERABL ES [facility] [place] [address] * (ABNORMAL) Hemogram (09/24/2016 9:56 AM EST) White Blood Cell 10.1(H) 4.0 - 9.5 x10(3)/mc L [facility] Red Blood Cell 2.87(L) 4.00 - 5.21 x10(6)/mc L [facility] Hemoglobin 9.4(L) 11.7 - 15.5 gm/dL [facility] Hematocrit 28.3(L) 35.7 - 45.8 % [facility] Mean Cell Volume 98.6(H) 82.6 - 94.4 fL [facility] Mean Cell Hemoglobin 32.8(H) 27.1 - 32.0 pg [facility] Mean Cell Hemoglobin Concentration 33.2 31.7 - 35.0 gm/dL [facility] Platelet 141(L) 145 - 357 x10(3)/mc L [facility] RDW Standard Deviation 45.0 37.0 - 46.0 fL [facility] RDW coefficient of variation 12.6 11.5 - 14.1 % [facility] Mean Platelet Volume 9.4 7.6 - 12.9 fL [facility] NRBC% auto 1.1 % [facility] NRBC Absolute 0.110(H) 0.000 - 0.000 x10(3)/mc L [facility] Blood specimen (specimen) 09/24/2016 9:56 AM EST 09/24/2016 10:04 AM EST Narrative Resulting Agency Comment Spec In Lab Alirio Esparza MD HEMATOLOGY ORDERABL ES [facility] [place] [address] * (ABNORMAL) Basic Metabolic Panel (non-fasting) (09/24/2016 9:56 AM EST) Glucose 111 65 - 199 mg/dL [facility] Comment:Diabetes: >=200 mg/d L plus symptoms Blood Urea Nitrogen 23(H) 8 - 18 mg/dL [facility] Comment:result rechecked-ART Creatinine 0.89 0.70 - 1.20 mg/dL [facility] Comment: Please note that the pediatric reference intervals supplied above were not validated at [facility]. Results from pediatric patients should be interpreted in conjunction to the patient's age, height and muscle mass. Sodium 138 135 - 145 mmol/L [facility] Potassium 4.2 3.5 - 5.0 mmol/L [facility] Comment: Please note: ??Patients with WBC >100,000 may have falsely elevated Potassium levels. ??For accurate Potassium quantification in these patients send serum separator tube (gold top) for subsequent determinations. ??Contact the Clinical Chemistry Laboratory if there are any questions. Chloride 98 98 - 107 mmol/L [facility] Carbon Dioxide 26 22 - 31 mmol/L [facility] Anion Gap 14 5 - 15 mmol/L [facility] Calcium 9.1 8.5 - 10.5 mg/dL [facility] [...] the following links into your internet browser. [email or web address] Blood specimen (specimen) 09/24/2016 9:56 AM EST 09/24/2016 10:04 AM EST Narrative Resulting Agency Comment Spec In Lab Alirio Esparza MD CHEMISTRY ORDERABLE S [facility] [place] [id number] * XR Chest PA & Lateral (Generic) [...] EST) Potassium 4.5 3.5 - 5.0 mmol/L [facility] [...] CHEMISTRY ORDERABLE S [facility] [place] [address] * POCT Glucose (09/22/2016 8:17 AM EST) Glucose, POC 131 65 - 199 mg/dL [facility] Comment: Supplemental ranges: <140 mg/dL before meals <180 mg/dL all other times of the day Blood specimen (specimen) 09/22/2016 8:17 AM EST 09/22/2016 8:17 AM EST Alirio Esparza MD POINT OF CARE TEST ORDERABLES Performing Organization Address City/[facility]/ZIP Co de Phone Number [facility] [place] [address] * POCT Glucose (09/22/2016 4:01 AM EST) Glucose, POC 135 65 - 199 mg/dL [facility] Comment: Supplemental ranges: <140 mg/dL before meals <180 mg/dL all other times of the day Blood specimen (specimen) 09/22/2016 4:01 AM EST 09/22/2016 4:01 AM EST Alirio Esparza MD POINT OF CARE TEST ORDERABLES [facility] [place] [address] * Scan, Peripheral Blood (09/22/2016 4:00 AM EST) Plat estimate Normal [facility] RBC Morphology Abnormal [facility] Macrocyte 1-5 /HPF [facility] Plat, Giant Less than 1 /HPF [facility] Blood specimen (specimen) 09/22/2016 4:00 AM EST 09/22/2016 4:34 AM EST Narrative Resulting Agency Comment Spec In Lab Alirio Esparza MD HEMATOLOGY ORDERABL ES Performing Organization Address City/[facility]/ZIP Co de Phone Number [facility] [place] [address] * Electrolytes panel (09/22/2016 4:00 AM EST) Pathologist [facility] Sodium 145 135 - 145 mmol/L [facility] Potassium 4.4 3.5 - 5.0 mmol/L [facility] Comment: Please note: ??Patients with WBC >100,000 may have falsely elevated Potassium levels. ??For accurate Potassium quantification in these patients send serum separator tube (gold top) for subsequent determinations. ??Contact the Clinical Chemistry Laboratory if there are any questions. Chloride 107 98 - 107 mmol/L [facility] Carbon Dioxide 24 22 - 31 mmol/L [facility] Anion Gap 14 5 - 15 mmol/L [facility] Blood specimen (specimen) Venous Draw / Unknown 09/22/2016 4:00 AM EST 09/22/2016 4:34 AM EST Narrative Resulting Agency Comment Spec In Lab Alirio Esparza MD CHEMISTRY ORDERABLE S Performing Organization Address City/[facility]/ZIP Co de Phone Number [facility] [place] [address] * (ABNORMAL) Differential, Automated (09/22/2016 4:00 AM EST) Neutrophil % 70.9 % [facility] Neutrophil Absolute 5.33 1.70 - 6.10 x10(3)/mc L [facility] Lymph % 9.1 % [facility] Lymphocytes Abs 0.7(L) 0.9 - 3.2 x10(3)/[facility] Monocyte % 18.0 % [facility] Monocyte Abs 1.4(H) 0.3 - 0.9 x10(3)/[facility] Eos % 0.0 % [facility] Eosinophils Abs 0.0 0.0 - 0.4 x10(3)/[facility] LAB[facility] Basophil % 0.1 % [facility] Baso Absolute 0.0 0.0 - 0.1 x10(3)/[facility] Immature Gran % 1.90 % [facility] Comment: Immature [...] HEMATOLOGY ORDERABL ES [facility] [place] [address] * (ABNORMAL) Hemogram (09/22/2016 4:00 AM EST) White Blood Cell 7.5 4.0 - 9.5 x10(3)/[facility] Red Blood Cell 2.93(L) 4.00 - 5.21 x10(6)/[facility] Hemoglobin 9.2(L) 11.7 - 15.5 gm/dL [facility] Hematocrit 28.0(L) 35.7 - 45.8 % [facility] Mean Cell Volume 95.6(H) 82.6 - 94.4 fL [facility] Mean Cell Hemoglobin 31.4 27.1 - 32.0 pg [facility] Mean Cell Hemoglobin Concentration 32.9 31.7 - 35.0 gm/dL [facility] Platelet 161 145 - 357 x10(3)/mc L [facility] RDW Standard Deviation 44.0 37.0 - 46.0 fL [facility] RDW coefficient of variation 12.6 11.5 - 14.1 % [facility] Mean Platelet Volume 9.3 7.6 - 12.9 fL [facility] NRBC% auto 0.3 % [facility] NRBC Absolute 0.020(H) 0.000 - 0.000 x10(3)/mc L [facility] Blood specimen (specimen) 09/22/2016 4:00 AM EST 09/22/2016 4:34 AM EST Narrative Resulting Agency Comment Spec In Lab Alirio Esparza MD HEMATOLOGY ORDERABL ES [facility] [place] [address] * (ABNORMAL) Cardiac Enzymes (09/22/2016 4:00 AM EST) Troponin-T 0.13(H) <=0.03 ng/mL [facility] Comment: 0.03 ng/mL: Represents [...] consensus document of the Joint Society of Cardiology/[place] [employer]iology Committee for the redefinition of myocardial infarction. ??Journal of the [place] College [employer]iology 2000; 36: 959-969] Creatine Kinase 338(H) 0 - 160 unit/L [facility] Blood specimen (specimen) 09/22/2016 4:00 AM EST 09/22/2016 4:34 AM EST Narrative Resulting Agency Comment Spec In Lab Alirio Esparza MD CHEMISTRY ORDERABLE S Performing Organization Address [facility] de Phone Number [facility] [place] [address] * (ABNORMAL) Glucose, fasting (09/22/2016 4:00 AM EST) Glucose Fasting 137(H) 65 - 99 mg/dL [facility] Comment: ?Fasting* Glucose Interpretive [...] of Diabetes Mellitus, Position Statement from the [employer]. ??Diabetes Care, Volume 33, Supplement 1, Aug 2009 Blood specimen (specimen) 09/22/2016 4:00 AM EST 09/22/2016 4:34 AM EST Narrative Resulting Agency Comment Spec In Lab Alirio Esparza MD CHEMISTRY ORDERABLE S Performing Organization Address [facility] de Phone Number [facility] [place] [address] * (ABNORMAL) Creatinine (09/22/2016 4:00 AM EST) [facility] Creatinine 0.69(L) 0.70 - 1.20 mg/dL [facility] Comment: Please note that the pediatric reference intervals supplied above were not validated at [facility]. Results from pediatric patients should be interpreted in conjunction to the patient's age, height and muscle mass. Est Glomerular Filtration Rate >60 >=60 GRACE [...] the following links into your internet browser. [email or web address] Blood specimen (specimen) 09/22/2016 4:00 AM EST 09/22/2016 4:34 AM EST Narrative Resulting Agency Comment Spec In Lab Alirio Esparza MD CHEMISTRY ORDERABLE S Performing Organization Address City/[facility] Co de Phone Number [facility] [place] [address] * BUN (09/22/2016 4:00 AM EST) [facility] Blood Urea Nitrogen 10 8 - 18 mg/dL [facility] Blood specimen (specimen) 09/22/2016 4:00 AM EST 09/22/2016 4:34 AM EST Narrative Resulting Agency Comment Spec In Lab Alirio Esparza MD CHEMISTRY ORDERABLE S Performing Organization Address [facility]/ZIP Co de Phone Number [facility] [place] [address] * POCT Glucose (09/21/2016 9:59 PM EST) [facility] Glucose, POC 146 65 - 199 mg/dL [facility] Comment: Supplemental ranges: <140 mg/dL before meals <180 mg/dL all other times of the day Blood specimen (specimen) 09/21/2016 9:59 PM EST 09/21/2016 9:59 PM EST Alirio Esparza MD POINT OF CARE TEST ORDERABLES Performing Organization Address City/[facility]/ZIP Co de Phone Number [facility] [place] [address] * POCT Glucose (09/21/2016 7:26 PM EST) Glucose, POC 152 65 - 199 mg/dL [facility] Comment: Supplemental ranges: <140 mg/dL before meals <180 mg/dL all other times of the day Blood specimen (specimen) 09/21/2016 7:26 PM EST 09/21/2016 7:26 PM EST Alirio Esparza MD POINT OF CARE TEST ORDERABLES Performing Organization Address [facility] Co de Phone Number [facility] [place] [address] * POCT Glucose (09/21/2016 6:00 PM EST) Glucose, POC 146 65 - 199 mg/dL [facility] Comment: Supplemental ranges: <140 mg/dL before meals <180 mg/dL all other times of the day Blood specimen (specimen) 09/21/2016 6:00 PM EST 09/21/2016 6:00 PM EST Alirio Esparza MD POINT OF CARE TEST ORDERABLES Performing Organization Address City/[facility] Co de Phone Number [facility] [place] [address] * (ABNORMAL) BLOOD GAS 2 ARTERIAL (09/21/2016 4:42 PM EST) pH, Arterial 7.35(L) 7.35 - 7.45 [facility] PCO2, Arterial 48(H) 35 - 45 mmHg [facility] PO2, Arterial 108(H) 85 - 104 mmHg [facility] Bicarbonate, Arterial 26.0 20.0 - 26.0 mmol/L [facility] Base Excess, Arterial 0.5 -3.0 - 3.0 mmol/L [facility] Hgb Blood Gas 10.4(L) 11.7 - 15.5 gm/dL [facility] Oxyhemoglobin, Arterial 96.2 94.0 - 97.0 % [facility] Carboxyhemoglob in, Arterial 0.0 % [facility] Comment: Nonsmokers: 0.5-1.5% COHB Smokers: Variable, but usually less than 10% Toxic: 20-30% COHB Lethal: Greater than 60% COHB Methemoglobin, Arterial 0.7 <=1.5 % [facility] Na Whole Blood 139 135 - 145 mmol/L [facility] K Whole Blood 4.2 3.5 - 5.0 mmol/L [facility] Comment: Please note: Patients with WBC >100,000 may have falsely elevated Potassium levels. Contact the Clinical Chemistry Laboratory if there are any questions. ICa Whole Blood 1.13(L) 1.15 - 1.33 mmol/L [facility] Comment: Note: ??Total bilirubin higher than 20 mg/dL may lead to falsely low ionized calcium. CL Whole Blood 106 98 - 107 mmol/L [facility] Gluc Whole Bld 147 65 - 199 mg/dL [facility] Comment:Diabetes: >=200 mg/d L plus symptoms. Lactate WB 1.2 0.5 - 2.2 mmol/L [facility] FIO2 Art 40 % [facility] PF Ratio Art 270 [facility] Blood specimen (specimen) 09/21/2016 4:42 PM EST 09/21/2016 4:42 PM EST Alirio Esparza MD POINT OF CARE TEST ORDERABLES Performing Organization Address [facility] Co de Phone Number [facility] [place] [address] * POCT Glucose (09/21/2016 4:07 PM EST) Glucose, POC 150 65 - 199 mg/dL [facility] Comment: Supplemental ranges: <140 mg/dL before meals <180 mg/dL all other times of the day Blood specimen (specimen) 09/21/2016 4:07 PM EST 09/21/2016 4:07 PM EST Alirio Esparza MD POINT OF CARE TEST ORDERABLES Performing Organization Address [facility] de Phone Number [facility] [place] [address] * (ABNORMAL) Hemoglobin (09/21/2016 4:05 PM EST) [facility] Hemoglobin 9.9(L) 11.7 - 15.5 gm/dL [facility] Blood specimen (specimen) 09/21/2016 4:05 PM EST 09/21/2016 4:20 PM EST Narrative Resulting Agency Comment Spec In Lab Alirio Esparza MD HEMATOLOGY ORDERABL ES Performing Organization Address [facility] de Phone Number [facility] [place] [address] * Potassium (09/21/2016 4:05 PM EST) [facility] Potassium 4.6 3.5 - 5.0 mmol/L [facility] MD CHEMISTRY ORDERABLE S Performing Organization Address City/[facility]/ZIP Co de Phone Number [facility] [place] [address] * POCT Glucose (09/21/2016 2:52 PM EST) Glucose, POC 117 65 - 199 mg/dL [facility] Comment: Supplemental ranges: <140 mg/dL before meals <180 mg/dL all other times of the day Blood specimen (specimen) 09/21/2016 2:52 PM EST 09/21/2016 2:52 PM EST Alirio Esparza MD POINT OF CARE TEST ORDERABLES Performing Organization Address [facility] Co de Phone Number [facility] [place] [address] * POCT Glucose (09/21/2016 1:51 PM EST) Glucose, POC 108 65 - 199 mg/dL [facility] Comment: Supplemental ranges: <140 mg/dL before meals <180 mg/dL all other times of the day Blood specimen (specimen) 09/21/2016 1:51 PM EST 09/21/2016 1:51 PM EST Alirio Esparza MD POINT OF CARE TEST ORDERABLES Performing Organization Address [facility]/ZIP Co de Phone Number [facility] [place] [address] * POCT Glucose (09/21/2016 12:54 PM EST) Glucose, POC 128 65 - 199 mg/dL [facility] Comment: Supplemental ranges: <140 mg/dL before meals <180 mg/dL all other times of the day Blood specimen (specimen) 09/21/2016 12:54 PM EST 09/21/2016 12:54 PM EST Alirio Esparza MD POINT OF CARE TEST ORDERABLES [facility] [place] [address] * EKG 12 Lead (09/21/2016 12:26 PM EST) Ventricular rate 87 BPM MUSE SYSTEM Atrial Rate 87 BPM MUSE SYSTEM P-R Interval 256 ms MUSE SYSTEM QRS Duration 90 ms MUSE SYSTEM Q-T Interval 406 ms MUSE SYSTEM QTC Calculated (Bezet) 488 ms MUSE SYSTEM Calculated P [place] 24 degrees MUSE SYSTEM Calculated R [place] 21 degrees MUSE SYSTEM Calculated T [place] -5 degrees MUSE SYSTEM INTERPRETATION Sinus rhythm with 1st degree A-V block Nonspecific T wave abnormality Prolonged QT Abnormal ECG When compared with ECG of 19-MAY-2016 11:43, [place] interval has increased T wave inversion now [...] course of the esophagus and below the [id number]. There is a right IJ PA catheter [...] the course of theesophagus and below the [id number]. There is a right IJ PA catheter [...] EST) pH, Arterial 7.41 7.35 - 7.45 [facility] PCO2, Arterial 42 35 - 45 mmHg [facility] PO2, Arterial 356(H) 85 - 104 mmHg [facility] Bicarbonate, Arterial 26.2(H) 20.0 - 26.0 mmol/L [facility] Base Excess, Arterial 1.6 -3.0 - 3.0 mmol/L [facility] Hgb Blood Gas 10.7(L) 11.7 - 15.5 gm/dL [facility] Oxyhemoglobin, Arterial 98.1(H) 94.0 - 97.0 % [facility] Carboxyhemoglob in, Arterial 0.3 % [facility] Comment: Nonsmokers: 0.5-1.5% COHB Smokers: Variable, but usually less than 10% Toxic: 20-30% COHB Lethal: Greater than 60% COHB Methemoglobin, Arterial 0.8 <=1.5 % [facility] Na Whole Blood 140 135 - 145 mmol/L [facility] K Whole Blood 3.8 3.5 - 5.0 mmol/L [facility] Comment: Please note: Patients with WBC >100,000 may have falsely elevated Potassium levels. Contact the Clinical Chemistry Laboratory if there are any questions. ICa Whole Blood 1.15(L) 1.15 - 1.33 mmol/L [facility] Comment: Note: ??Total bilirubin higher than 20 mg/dL may lead to falsely low ionized calcium. CL Whole Blood 106 98 - 107 mmol/L [facility] Gluc Whole Bld 135 65 - 199 mg/dL [facility] Comment:Diabetes: >=200 mg/d L plus symptoms. Lactate WB 2.2 0.5 - 2.2 mmol/L [facility] FIO2 Art 100 % [facility] PF Ratio Art 356 [facility] Blood specimen (specimen) 09/21/2016 12:20 PM EST 09/21/2016 12:20 PM EST Alirio Esparza MD POINT OF CARE TEST ORDERABLES Performing Organization Address City/State/[facility] Co de Phone Number [facility] [place] [address] * (ABNORMAL) BLOOD GAS 2 ARTERIAL (09/21/2016 10:54 AM EST) pH, Arterial 7.43 7.35 - 7.45 [facility] PCO2, Arterial 40 35 - 45 mmHg [facility] PO2, Arterial 297(H) 85 - 104 mmHg [facility] Bicarbonate, Arterial 26.0 20.0 - 26.0 mmol/L [facility] Base Excess, Arterial 1.6 -3.0 - 3.0 mmol/L [facility] Hgb Blood Gas 8.6(L) 11.7 - 15.5 gm/dL [facility] Oxyhemoglobin, Arterial 98.6(H) 94.0 - 97.0 % [facility] Carboxyhemoglob in, Arterial 0.5 % [facility] Comment: Nonsmokers: 0.5-1.5% COHB Smokers: Variable, but usually less than 10% Toxic: 20-30% COHB Lethal: Greater than 60% COHB Methemoglobin, Arterial 0.3 <=1.5 % [facility] Na Whole Blood 134(L) 135 - 145 mmol/L [facility] K Whole Blood 4.5 3.5 - 5.0 mmol/L [facility] Comment: Please note: Patients with WBC >100,000 may have falsely elevated Potassium levels. Contact the Clinical Chemistry Laboratory if there are any questions. ICa Whole Blood 1.16 1.15 - 1.33 mmol/L [facility] Comment: Note: ??Total bilirubin higher than 20 mg/dL may lead to falsely low ionized calcium. CL Whole Blood 104 98 - 107 mmol/L [facility] Gluc Whole Bld 240(H) 65 - 199 mg/dL [facility] Comment:Diabetes: >=200 mg/d L plus symptoms. Lactate WB 2.4(H) 0.5 - 2.2 mmol/L [facility] FIO2 Art 95 % [facility] Flow Art 0.[address] [facility] PF Ratio Art 313 [facility] Temp Art 36.[address] [facility] Blood specimen (specimen) 09/21/2016 10:54 AM EST 09/21/2016 10:54 AM EST Alirio Esparza MD POINT OF CARE TEST ORDERABLES Performing Organization Address City/State/[facility] Co de Phone Number [facility] [place] [address] * Thrombin time (09/21/2016 10:50 AM EST) Thrombin Time 19 15 - 20 sec [facility] Comment: A prolongation in [...] MD HEMATOLOGY ORDERABLE S Performing Organization Address [facility] Co de Phone Number [facility] [place] [address] * Fibrinogen (09/21/2016 10:50 AM EST) Fibrinogen 228 180 - 510 mg/dL [facility] Comment: Called by: JONNATHAN, Read back by: MICHELLE ALEJANDRE_, Date/Time:09/21/16 11:11. A fibrinogen level >100 mg/dL is adequate for hemostasis in most patients without underlying bleeding disorders. Blood specimen (specimen) 09/21/2016 10:50 AM EST 09/21/2016 10:56 AM EST Narrative Resulting Agency Comment Spec In Lab Luis Enrique Quarles MD HEMATOLOGY ORDERABLE S Performing Organization Address [facility] Co de Phone Number [facility] [place] [address] * APTT (09/21/2016 10:50 AM EST) Partial Thromboplastin Time 32 25 - 35 sec [facility] Comment: The recommended therapeutic range for full dose, unfractionated heparin at [facility] is 80 ? [...] MD HEMATOLOGY ORDERABLE S Performing Organization Address City/[facility] Co de Phone Number [facility] [place] [address] * (ABNORMAL) Prothrombin Time (09/21/2016 10:50 AM EST) Prothrombin Time 18.7(H) 12.0 - 15.0 sec [facility] Comment: An INR <2.0 [...] International Normalization Ratio 1.5(H) 0.9 - 1.1 [facility] Blood specimen (specimen) 09/21/2016 10:50 AM EST 09/21/2016 10:56 AM EST Narrative Resulting Agency Comment Spec In Lab Luis Enrique Quarles MD HEMATOLOGY ORDERABLE S [facility] [place] [address] * (ABNORMAL) Hemogram (09/21/2016 10:50 AM EST) White Blood Cell 14.7(H) 4.0 - 9.5 x10(3)/mc L [facility] Red Blood Cell 2.40(L) 4.00 - 5.21 x10(6)/mc L [facility] Hemoglobin 7.9(L) 11.7 - 15.5 gm/dL [facility] Hematocrit 23.2(L) 35.7 - 45.8 % [facility] Comment: This result has been called to MICHELLE GRIGSBY by ASHU MORENO on 09 21 2016 at 1102, and has been read back. Mean Cell Volume 96.7(H) 82.6 - 94.4 fL [facility] Mean Cell Hemoglobin 32.9(H) 27.1 - 32.0 pg [facility] Mean Cell Hemoglobin Concentration 34.1 31.7 - 35.0 gm/dL [facility] Platelet 117(L) 145 - 357 x10(3)/mc L [facility] RDW Standard Deviation 42.6 37.0 - 46.0 fL [facility] RDW coefficient of variation 12.1 11.5 - 14.1 % [facility] Mean Platelet Volume 9.2 7.6 - 12.9 fL [facility] NRBC% auto 0.1 % [facility] NRBC Absolute 0.020(H) 0.000 - 0.000 x10(3)/mc L [facility] Blood specimen (specimen) 09/21/2016 10:50 AM EST 09/21/2016 10:56 AM EST Narrative Resulting Agency Comment Spec In Lab Luis Enrique Quarles MD HEMATOLOGY ORDERABLE S Performing Organization Address [facility] Co de Phone Number [facility] [place] [address] * Prepare Platelets, Apheresis (09/21/2016 10:30 AM EST) Dispensed? Yes [facility] Blood specimen (specimen) 09/21/2016 10:30 AM EST 09/21/2016 10:28 AM EST Alirio Esparza MD BLOOD BANK PRODUCT ORDERABLES Performing Organization Address [facility] de Phone Number [facility] [place] [id number] * (ABNORMAL) BLOOD GAS 2 ARTERIAL (09/21/2016 10:05 AM EST) pH, Arterial 7.33(L) 7.35 - 7.45 [facility] PCO2, Arterial 54(Critic al) 35 - 45 mmHg [facility] Comment:Noted by brass instrument repair technician. PO2, Arterial 218(H) 85 - 104 mmHg [facility] Bicarbonate, Arterial 27.9(H) 20.0 - 26.0 mmol/L [facility] Base Excess, Arterial 2.0 -3.0 - 3.0 mmol/L [facility] Hgb Blood Gas 8.6(L) 11.7 - 15.5 gm/dL [facility] Oxyhemoglobin, Arterial 98.4(H) 94.0 - 97.0 % [facility] Carboxyhemoglo bin, Arterial 0.5 % [facility] Comment: Nonsmokers: 0.5-1.5% COHB Smokers: Variable, but usually less than 10% Toxic: 20-30% COHB Lethal: Greater than 60% COHB Methemoglobin, Arterial 0.3 <=1.5 % [facility] Na Whole Blood 129(L) 135 - 145 mmol/L [facility] K Whole Blood 6.2(Criti gabrielle) 3.5 - 5.0 mmol/L [facility] Comment: Noted by brass instrument repair technician. Please note: Patients with WBC >100,000 may have falsely elevated Potassium levels. Contact the Clinical Chemistry Laboratory if there are any questions. ICa Whole Blood 0.95(L) 1.15 - 1.33 mmol/L [facility] Comment: Note: ??Total bilirubin higher than 20 mg/dL may lead to falsely low ionized calcium. CL Whole Blood 100 98 - 107 mmol/L [facility] Gluc Whole Bld 289(H) 65 - 199 mg/dL [facility] Comment:Diabetes: >=200 mg/d L plus symptoms. Lactate WB 2.2 0.5 - 2.2 mmol/L [facility] Temp Art 37.[address] [facility] Blood specimen (specimen) 09/21/2016 10:05 AM EST 09/21/2016 10:05 AM EST Alirio Esparza MD POINT OF CARE TEST ORDERABLES [facility] [place] [address] * (ABNORMAL) BLOOD GAS 2 ARTERIAL (09/21/2016 9:44 AM EST) pH, Arterial 7.22(Criti gabrielle) 7.35 - 7.45 [facility] Comment:Noted by brass instrument repair technician. PCO2, Arterial 70(Critica l) 35 - 45 mmHg [facility] Comment:Noted by brass instrument repair technician. PO2, Arterial 224(H) 85 - 104 mmHg [facility] Bicarbonate, Arterial 27.8(H) 20.0 - 26.0 mmol/L [facility] Base Excess, Arterial 0.0 -3.0 - 3.0 mmol/L [facility] Hgb Blood Gas 8.7(L) 11.7 - 15.5 gm/dL [facility] Oxyhemoglobin, Arterial 98.5(H) 94.0 - 97.0 % [facility] Carboxyhemoglob in, Arterial 0.6 % [facility] Comment: Nonsmokers: 0.5-1.5% COHB Smokers: Variable, but usually less than 10% Toxic: 20-30% COHB Lethal: Greater than 60% COHB Methemoglobin, Arterial 0.3 <=1.5 % [facility] Na Whole Blood 131(L) 135 - 145 mmol/L [facility] K Whole Blood 5.9(H) 3.5 - 5.0 mmol/L [facility] Comment: Please note: Patients with WBC >100,000 may have falsely elevated Potassium levels. Contact the Clinical Chemistry Laboratory if there are any questions. ICa Whole Blood 1.00(L) 1.15 - 1.33 mmol/L [facility] Comment: Note: ??Total bilirubin higher than 20 mg/dL may lead to falsely low ionized calcium. CL Whole Blood 101 98 - 107 mmol/L [facility] Gluc Whole Bld 227(H) 65 - 199 mg/dL [facility] Comment:Diabetes: >=200 mg/d L plus symptoms. Lactate WB 2.1 0.5 - 2.2 mmol/L [facility] Blood specimen (specimen) 09/21/2016 9:44 AM EST 09/21/2016 9:44 AM EST Alirio Esparza MD POINT OF CARE TEST ORDERABLES [facility] [place] [address] * (ABNORMAL) Hemoglobin (09/21/2016 9:42 AM EST) Hemoglobin 7.2(L) 11.7 - 15.5 gm/dL [facility] Blood specimen (specimen) 09/21/2016 9:42 AM EST 09/21/2016 9:51 AM EST Narrative Resulting Agency Comment Spec In Lab Alirio Esparza MD HEMATOLOGY ORDERABL ES [facility] [place] [address] * Platelet count (09/21/2016 9:42 AM EST) Platelet 159 145 - 357 x10(3)/mc L [facility] Immature Plt % 1.6 0.0 - 7.4 % [facility] Comment: Limitation of the Immature Platelet Fraction (IPF)-May be less reliable when the platelet count is less than 36w919/uL due to statistical imprecision. The IPF value [...] in a decreased state of production. References: [employer] The Clinical Value of the Immature Platelet Fraction (IPF) in Cell Recovery Document Number [id number] 12/2010 [employer] The Role of the Immature Platelet Fraction (IPF) in the Differential Diagnosis of Thrombocytopenia, Document [id number] V05/12/14 P05/14 Blood specimen (specimen) 09/21/2016 9:42 AM EST 09/21/2016 9:51 AM EST Narrative Resulting Agency Comment Spec In Lab Alirio Esparza MD HEMATOLOGY ORDERABL ES Performing Organization Address [facility] Co de Phone Number [facility] [place] [address] * (ABNORMAL) Hematocrit (09/21/2016 9:42 AM EST) Hematocrit 21.6(L) 35.7 - 45.8 % [facility] Comment: This result has been called to MICHELLE ALEJANDRE by Serjio Frazier on 09 21 2016 at 0957, and has been read back. Blood specimen (specimen) 09/21/2016 9:42 AM EST 09/21/2016 9:51 AM EST Narrative Resulting Agency Comment Spec In Lab Alirio Esparza MD HEMATOLOGY ORDERABL ES Performing Organization Address [facility] Co de Phone Number [facility] [place] [address] * Fibrinogen (09/21/2016 9:42 AM EST) Fibrinogen 219 180 - 510 mg/dL [facility] Comment: Called by: JONNATHAN, Read back by: MICHELLE ALEJANDRE_, Date/Time:09/21/16 10:03_. A fibrinogen level >100 mg/dL is adequate for hemostasis in most patients without underlying bleeding disorders. Blood specimen (specimen) 09/21/2016 9:42 AM EST 09/21/2016 9:51 AM EST Narrative Resulting Agency Comment Spec In Lab Alirio Esparza MD HEMATOLOGY ORDERABL ES Performing Organization Address City/[facility] Co de Phone Number [facility] [place] [address] * (ABNORMAL) BLOOD GAS 2 ARTERIAL (09/21/2016 9:10 AM EST) pH, Arterial 7.36 7.35 - 7.45 [facility] PCO2, Arterial 48(H) 35 - 45 mmHg [facility] PO2, Arterial 295(H) 85 - 104 mmHg [facility] Bicarbonate, Arterial 26.0 20.0 - 26.0 mmol/L [facility] Base Excess, Arterial 0.5 -3.0 - 3.0 mmol/L [facility] Hgb Blood Gas 8.0(L) 11.7 - 15.5 gm/dL [facility] Oxyhemoglobin, Arterial 98.3(H) 94.0 - 97.0 % [facility] Carboxyhemoglob in, Arterial 1.0 % [facility] Comment: Nonsmokers: 0.5-1.5% COHB Smokers: Variable, but usually less than 10% Toxic: 20-30% COHB Lethal: Greater than 60% COHB Methemoglobin, Arterial 0.3 <=1.5 % [facility] [facility] Na Whole Blood 135 135 - 145 mmol/L [facility] K Whole Blood 5.4(H) 3.5 - 5.0 mmol/L [facility] Comment: Please note: Patients with WBC >100,000 may have falsely elevated Potassium levels. Contact the Clinical Chemistry Laboratory if there are any questions. ICa Whole Blood 0.93(L) 1.15 - 1.33 mmol/L [facility] Comment: Note: ??Total bilirubin higher than 20 mg/dL may lead to falsely low ionized calcium. CL Whole Blood 102 98 - 107 mmol/L [facility] Gluc Whole Bld 195 65 - 199 mg/dL [facility] Comment:Diabetes: >=200 mg/d L plus symptoms. Lactate WB 1.8 0.5 - 2.2 mmol/L [facility] Temp Art 37.[address] [facility] Blood specimen (specimen) 09/21/2016 9:10 AM EST 09/21/2016 9:10 AM EST Alirio Esparza MD POINT OF CARE TEST ORDERABLES [facility] [place] [address] * Surgical Pathology Report (09/21/2016 9:09 AM EST) Final Diagnosis [id number] ?Location: 3T The signing pathologist has (i) [...] ?. (R1) ??ADELITA 09/24/2016 9:32 AM EST [facility] AORTIC STRUCTURE / Unknown 09/21/2016 9:09 AM EST 09/21/2016 9:09 AM EST Alirio Esparza MD PATHOLOGY/CYTOLOGY ORDERABLES [facility] [place] [address] * Specimen to Pathology (surgical or derm) (09/21/2016 9:09 AM EST) AP Specimen 09/21/2016 9:09 AM EST 09/21/2016 9:09 AM EST Narrative [facility] - 09/21/2016 9:09 AM EST Specimen requisition ordered. ??Separate Pathology report to follow Alirio Esparza MD PATHOLOGY/CYTOLOGY ORDERABLES [facility] [place] [address] * (ABNORMAL) BLOOD GAS 2 ARTERIAL (09/21/2016 8:50 AM EST) pH, Arterial 7.41 7.35 - 7.45 [facility] PCO2, Arterial 33(L) 35 - 45 mmHg [facility] PO2, Arterial 348(H) 85 - 104 mmHg [facility] Bicarbonate, Arterial 20.6 20.0 - 26.0 mmol/L [facility] Base Excess, Arterial -4.1(L) -3.0 - 3.0 mmol/L [facility] Hgb Blood Gas 9.5(L) 11.7 - 15.5 gm/dL [facility] Oxyhemoglobin, Arterial 98.8(H) 94.0 - 97.0 % [facility] Carboxyhemoglob in, Arterial 0.3 % [facility] Comment: Nonsmokers: 0.5-1.5% COHB Smokers: Variable, but usually less than 10% Toxic: 20-30% COHB Lethal: Greater than 60% COHB Methemoglobin, Arterial 0.3 <=1.5 % [facility] Na Whole Blood 137 135 - 145 mmol/L [facility] K Whole Blood 4.0 3.5 - 5.0 mmol/L [facility] Comment: Please note: Patients with WBC >100,000 may have falsely elevated Potassium levels. Contact the Clinical Chemistry Laboratory if there are any questions. ICa Whole Blood 1.04(L) 1.15 - 1.33 mmol/L [facility] Comment: Note: ??Total bilirubin higher than 20 mg/dL may lead to falsely low ionized calcium. CL Whole Blood 105 98 - 107 mmol/L [facility] Gluc Whole Bld 93 65 - 199 mg/dL [facility] Comment:Diabetes: >=200 mg/d L plus symptoms. Lactate WB 1.0 0.5 - 2.2 mmol/L [facility] Blood specimen (specimen) 09/21/2016 8:50 AM EST 09/21/2016 8:50 AM EST Alirio Esparza MD POINT OF CARE TEST ORDERABLES [facility] [place] [address] * (ABNORMAL) BLOOD GAS 2 ARTERIAL (09/21/2016 8:18 AM EST) pH, Arterial 7.42 7.35 - 7.45 [facility] PCO2, Arterial 36 35 - 45 mmHg [facility] PO2, Arterial 283(H) 85 - 104 mmHg [facility] Bicarbonate, Arterial 22.8 20.0 - 26.0 mmol/L [facility] Base Excess, Arterial -2.0 -3.0 - 3.0 mmol/L [facility] Hgb Blood Gas 12.6 11.7 - 15.5 gm/dL [facility] Oxyhemoglobin, Arterial 99.0(H) 94.0 - 97.0 % [facility] Carboxyhemoglob in, Arterial 0.6 % [facility] Comment: Nonsmokers: 0.5-1.5% COHB Smokers: Variable, but usually less than 10% Toxic: 20-30% COHB Lethal: Greater than 60% COHB Methemoglobin, Arterial 0.0 <=1.5 % [facility] Na Whole Blood 144 135 - 145 mmol/L [facility] K Whole Blood 4.0 3.5 - 5.0 mmol/L [facility] Comment: Please note: Patients with WBC >100,000 may have falsely elevated Potassium levels. Contact the Clinical Chemistry Laboratory if there are any questions. ICa Whole Blood 1.22 1.15 - 1.33 mmol/L [facility] Comment: Note: ??Total bilirubin higher than 20 mg/dL may lead to falsely low ionized calcium. CL Whole Blood 106 98 - 107 mmol/L [facility] Gluc Whole Bld 102 65 - 199 mg/dL [facility] Comment:Diabetes: >=200 mg/d L plus symptoms. Lactate WB 1.2 0.5 - 2.2 mmol/L [facility] FIO2 Art 95 % [facility] Flow Art 1.[address] [facility] PF Ratio Art 298 [facility] Temp Art 35.[address] [facility] Blood specimen (specimen) 09/21/2016 8:18 AM EST 09/21/2016 8:18 AM EST Alirio Esparza MD POINT OF CARE TEST ORDERABLES Performing Organization Address City/[facility] Co de Phone Number [facility] [place] [address] * Prepare RBC (09/21/2016 7:05 AM EST) Dispensed? Yes [facility] Blood specimen (specimen) 09/21/2016 7:05 AM EST 09/21/2016 7:02 AM EST Alirio Esparza MD BLOOD BANK PRODUCT ORDERABLES Performing Organization Address City/[facility] Co de Phone Number [facility] [place] [address] * POCT Glucose (09/21/2016 6:42 AM EST) Glucose, POC 104 65 - 199 mg/dL [facility] Comment: Supplemental ranges: <140 mg/dL before meals <180 mg/dL all other times of the day Blood specimen (specimen) 09/21/2016 6:42 AM EST 09/21/2016 6:42 AM EST Alirio Esparza MD POINT OF CARE TEST ORDERABLES [facility] [place] [address] documented in this encounter Visit Diagnoses Not [...] dose on Wed09/21/16 at 1230, Until Discontinued, [place] teeth, Routine Given 09/25/2016 9:40 AM EST [...] (Due - Provider: Kendall Martínez [facility]) aspirin chewable tablet 81 mg(Linked [...] dose on Wed09/21/16 at 1230, Until Discontinued, [place] teeth, Routine 0900 (Not Given - Provider: [...] VALDO) 08 (Given - Provider: Marek Barnes, VALDO)2042 (Given - Provider: Alie Whitfield, VALDO) 0941 [...] Elsa Miguel, VALDO)2019 (Given - Provider: Federico Apple RN) 0300 [...] Routine documented in this encounter Care Teams Sterilization Tech Relationship Specialty Start Date End Date Deborah Quiroga APRN PCP - General Family Medicine 03/24/16 02/04/23 documented as of this encounter
--- OUTSIDE RECORDS SUMMARY | 2024-06-27 15:22 | XMS_ITS | Encounter Summary ---
[place] [address] Care Team Providers Care Forensic Photographer Name Role Phone Deborah Quiroga APRN Primary Care Provider [phone]- [phone] Reason for Visit * Reason Onset Date Comments Prior Authorization 09/11/2016 Neulasta Encounter Details Date Type Department Care Team (Late st Contact Info) Description 09/11/2016 Telephone Hematology [place] [phone] Monica Wick Prior Authorization (Neulasta ) Social [...] Prior Auth for Neulasta (Approved) [facility] is a covered facility under the members plan. ID# [id number] Call placed to [phone] Rationale: Can you please start a PA for this pt to receive as outpatient at [facility] on 09/16/16? 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 ??Her last ANC was 0.56 (or 560) on 08/04/16. ??This will need to be approved through her medical as out patient. J code for neulasta. ?? [id number]. Spoke w/ Anna Marie Call Reference [id number] Copay: $ Deductible is not met, patient will have out of pocket costs until deductible is met. documented in this encounter Plan of Treatment Upcoming Encounters Date Type Department Care Team (Late st Contact Info) Description 11/02/2024 12:00 PM EDT Appointment [place] [address] 11/02/2024 1:00 PM EDT Office Visit [place] [address] Magdalena Peralta MD [facility] [place] [address] 03/01/2025 4:15 PM EDT Office Visit Dermatology at [place] [address] [place] [phone] Marek Bonilla MD [address] [place] [address] documented as of this encounter Visit Diagnoses Not on filedocumented in this encounter Care Teams Forensic Photographer Relationship Specialty Start Date End Date Deborah Quiroga APRN PCP - General Family Medicine 03/24/16 02/04/23 documented as of this encounter
--- OUTSIDE RECORDS SUMMARY | 2024-06-27 15:22 | XMS_ITS | Encounter Summary ---
[place] [address] Care Team Providers Care Hat Forming Machine Operator Name Role Phone Deborah Quiroga ANURAG Primary Care Provider [phone] [phone] Encounter Details Date Type Department Care Team (Late st Contact Info) Description 09/11/2016 Orders Only Hematology [place] [address] Alexandrea Greenwood RN Social History [...] the original note were not included. [facility] [place] [phone] Date: 09/11/16 Patient Name: Purnima Thacker : 1955 Diagnosis: Neutropenia Referral to [site]: [facility] Orders: ? Growth factor: [x] Neulasta 6mg SQ injection x 1 on 09/16/16 Signature: Markel Borjas MD beeper # [id number] Co-signature [if needed]: documented in this encounter Plan of Treatment Upcoming Encounters Date Type Department Care Team (Late st Contact Info) Description 11/02/2024 12:00 PM EDT Appointment [place] [address] 11/02/2024 1:00 PM EDT Office [place] [phone] Magdalena Peralta MD [facility] [address] [place] [address] 03/01/2025 4:15 PM EDT Office Visit Dermatology at [place] [address] [place] [address] Marek Bonilla MD [address], [address] [place] [address] documented as of this encounter Procedures Procedure Name Priority Date/Time Associated Diagnosis Comments TRANSESOPHAGEAL ECHOCARDIOGRAM (GAVINO) Routine 09/22/2016 documented in this encounter Results * Transesophageal Echocardiogram (GAVINO) (09/22/2016) Anatomical Region Laterality Modality Other 09/22/2016 Narrative 09/22/2016 8:30 AM EST Procedure: ?Transesophageal Echocardiogram Patient: ?KIRSTIE ECHOLS M ? (Age): 1955(61y) Med Rec#: ? [id number] ?Sex: ?M ? [place] [facility] [place]t / Wt: ??(cm)/ (kg) ? Pt. Loc: ?OR ? Study Date: ?? 09/21/2016 ?Pt. Type: Tape: ? Referring: Alirio Francisco Reading: CorozalHenrik salvador ([id number]) Polygraph Operator: Jacobo Patel ([id number]) Interpreting Fellow: Jacobo Patel ([id number]) Diagnosis: *Aortic valve disorders (424.1) CPT Codes: *Echo GAVINO Full (23589) Indication: ?? AVR for severe Rhythm: ? [...] ? Mid-Inferior ?Normal ? Mid-Inferoseptal ?Normal ? [place]-Septal ? Normal ? [place]-Anterior ? Normal ? [place]-Lateral ?Normal ? [place]-Inferior ? Normal ? [place]-Tip ?Normal ? This report has been electronically signed by: Henrik Yarbrough M.D. ? 09/22/2016 08:30:41 Images reviewed and interpretation verified [facility] Cardiac Ultrasound Laboratory Procedure Note Henrik Yarbrough MD - 09/22/2016 Procedure: Transesophageal Echocardiogram Patient: KIRSTIE Mejias (Age): 1955(61y) Med Rec#: [id number] Sex: M [place] Loc[place] [facility] [place] Ht / Wt: (cm)/ (kg) Pt. Loc: OR Study Date: 09/21/2016 Pt. Type: Tape: Referring: Alirio Francisco Reading: Henrik Yarbrough ([id number]) Polygraph Operator: Jacobo Patel ([id number]) Interpreting Fellow: Jacobo Patel ([id number]) Diagnosis: *Aortic valve disorders (424.1) CPT Codes: *Echo GAVINO Full (95283) Indication: AVR for severe Rhythm: Sinus SUMMARY: [...] Normal Mid-Posterolateral Normal Mid-Inferior Normal Mid-Inferoseptal Normal [place]-Septal Normal [place]-Anterior Normal [place]-Lateral Normal [place]-Inferior Normal [place]-Tip Normal This report has been electronically signed by: Henrik Yarbrough M.D. 09/22/2016 08:30:41 Images reviewed and interpretation verified [facility] Ul[facility] Unknown ECHO ORDERABLES documented in this encounter Visit Diagnoses Not on filedocumented in this encounter Care Teams Hat Forming Machine Operator Relationship Specialty Start Date End Date Deborah Quiroga APRN PCP - General Family Medicine 03/24/16 02/04/23 documented as of this encounter
--- OUTSIDE RECORDS SUMMARY | 2024-06-27 15:22 | XMS_ITS | Encounter Summary ---
Author Organization [facility] Address [facility] [place] [address] Care Team Providers Care Surgeon Assistant Name Role Phone Ashley Quirogan Cornelius ANURAG Primary Care Provider [phone] Encounter Details Date Type Department Care Team (Latest Contact Info) Description 08/18/2016 4:40 PM EST [place] [address] Aortic valve stenosis, unspecified etiology [...] 11/02/2024 12:00 PM EDT [place] [address] 11/02/2024 1:00 PM EDT Office [place] [address] Magdalena Peralta MD [facility] [address] 03/01/2025 4:15 PM EDT Office Visit Dermatology at [address] [phone] Marek Bonilla MD [address] [place] [address], [place] [address] documented as of this encounter Procedures Procedure [...] Esparza MD BLOOD BANK LAB [facility] Organization Address City/State/ZIP Co de Phone Number [facility] [place] [address] * Antibody screen (08/18/2016 4:50 PM EST) [...] [facility]/ZIP Co de Phone Number [facility] [place] [address] * ABO/Rh Typing (08/18/2016 4:50 PM EST) ABORH Type B Pos [facility] Blood specimen (specimen) 08/18/2016 4:50 PM EST 08/18/2016 5:11 PM EST Narrative Resulting Agency Comment Spec In Lab Alirio Esparza MD BLOOD BANK LAB [place] Performing Organization Address [facility] de Phone Number [facility] [place] [address] * Basic Metabolic Panel (non-fasting) (08/18/2016 4:50 PM EST) [facility] Glucose 82 65 - 199 mg/dL [...] the following links into your internet browser. [email or web address] Blood specimen (specimen) 08/18/2016 4:50 PM EST 08/18/2016 5:03 PM EST Narrative Resulting Agency Comment Spec In Lab Alirio Esparza MD CHEMISTRY ORDERABLE S Performing Organization Address City/State/[facility] Co de Phone Number [facility] [place] [address] documented in this encounter Visit Diagnoses Diagnosis Aortic valve stenosis, unspecified etiology documented in this encounter Care Teams Surgeon Assistant Relationship Specialty Start Date End Date Deborah Quiroga APRN PCP - General Family Medicine 03/24/16 02/04/23 documented as of this encounter
--- OUTSIDE RECORDS SUMMARY | 2024-06-27 15:22 | XMS_ITS | Encounter Summary ---
Author Organization [facility] Address [facility] [place] [address] Care Team Providers Care Post Manager Name Role Phone Deborah Quiroga ANURAG Primary Care Provider [phone]- [phone] Encounter Details Date Type Department Care Team (Late st Contact Info) Description 09/17/2016 External Results Hematology [place] [address] Alexandrea Greenwood RN Neutropenia, unspecified [...] 11/02/2024 12:00 PM EDT Appointment [place] [address] 11/02/2024 1:00 PM EDT Office [place] [address] Magdalena Peralta MD [facility] [address] 03/01/2025 4:15 PM EDT Office Visit Dermatology at [address] [address] Marek Bonilla MD [address], [place] [address] documented as of this encounter Procedures Procedure [...] type documented in this encounter Care Teams Post Manager Relationship Specialty Start Date End Date Deborah Quiroga APRN PCP - General Family Medicine 03/24/16 02/04/23 documented as of this encounter
--- OUTSIDE RECORDS SUMMARY | 2024-06-27 15:22 | XMS_ITS | Encounter Summary ---
Author Organization [facility] [place] [address] Care Team Providers Care Silviculturist Name Role Phone Deborah Quiroga APRN Primary Care Provider [phone] Encounter Details Date Type Department Care Team (Late st Contact Info) Description 08/18/2016 4:20 PM EST Clinical Support Same Day at [facility] [place] [phone] Social History Tobacco Use Types Packs/Day Years [...] 11/02/2024 12:00 PM EDT Appointment [place] [address] 11/02/2024 1:00 PM EDT Office [place] [phone] Magdalena Peralta MD [facility] [place] [address] 03/01/2025 4:15 PM EDT Office Visit Dermatology at [place] [address] [place] [address] Marek Bonilla MD [address], [place] [address] documented as of this encounter Visit Diagnoses Not on filedocumented in this encounter Care Teams Silviculturist Relationship Specialty Start Date End Date Deborah Quiroga APRN PCP - General Family Medicine 03/24/16 02/04/23 documented as of this encounter
--- OUTSIDE RECORDS SUMMARY | 2024-06-27 15:22 | XMS_ITS | Encounter Summary ---
[place] [address] Care Team Providers Care Lead Esthetician Name Role Phone Junaid, Deborah Shields APRN Primary Care Provider [phone] Reason for Visit * Reason Onset Date Comments Labs Only 09/16/2016 Encounter Details Date Type Department Care Team (Late st Contact Info) Description 09/16/2016 Telephone Hematology [place] [phone] Alexandrea Greenwood, RN Labs Only Social History [...] 11:09 AM EST Message received from medical secretary: Purnima is having her Neulasta done today at [facility]. ??She is wondering if we want to do a CBC prior to the injection? [phone] Borjas: CBC is fine RN spoke with Swapna at [facility] who confirms they can draw CBC on pt today, RN faxed CBC w/diff to [facility] lab at [phone] RN relayed to pt that CBC ordered had been faxed to [facility], pt will have CBC drawn today prior to neulasta injection. documented in this encounter Plan of Treatment Upcoming Encounters Date Type Department Care Team (Late st Contact Info) Description 11/02/2024 12:00 PM EDT Appointment [place] [address] 11/02/2024 1:00 PM EDT Office [place] [address] Magdalena Peralta MD [facility] [place] [address] 03/01/2025 4:15 PM EDT Office Visit Dermatology at [place] [address] [place] [address] Marek Bonilla MD [address], [facility] [place] [address] documented as of this encounter [...] type documented in this encounter Care Teams Lead Esthetician Relationship Specialty Start Date End Date Deborah Quiroga APRN PCP - General Family Medicine 03/24/16 02/04/23 documented as of this encounter
--- OUTSIDE RECORDS SUMMARY | 2024-06-27 15:22 | XMS_ITS | Encounter Summary ---
[place] [address] Care Team Providers Care Cross Tie Tram Loader Name Role Phone Junaid Deborah Shields APRN Primary Care Provider [phone] Reason for Visit * Auth/Cert Specialty Diagnoses / Procedures Referred By Crispin t Referred To Contact Diagnoses Aortic stenosis Procedures PRO REPLACE AORT VALV, PROSTH VALV @REPLACE AORTIC VALVE, OPEN, W\CPB, W\PROSTHETIC VALVE (WRVU 41.32) Referral ID Status Reason Start Date Expiration Date Visits Re quested Visits Authorized [id number] 1 1 Encounter Details Date Type Department Care Team (Late st Contact Info) Description 09/21/2016 7:25 AM EST Anesthesia Event [place] [address] Luis Enrique Quarles MD [facility] [place] [address] Henrik Cooper MD [facility] [place] [address] Anesthesia Record Procedure Summary Procedure Name Responsible [...] 0819 Sternotomy 0844 CV Bypass init 1009 Land Acquisition Specialist 1014 An Clamp Remove 1031 CP [...] Tube 09/21/16 (#28 angled chest tube to [place]: left: pericardial); Left; 09/22/16; 1119 09/21/16 0000 by Toshia Alejandre RN 09/22/16 1119 by Vero Bonilla RN Chest Tube 09/21/16 (#28 straig ht chest tube to [place]; right: mediastinal'); Right; mediastinum; 09/22/16; 1118 09/21/16 0000 by Toshia Alejandre RN 09/22/16 1118 by Vero Bonilla RN (RETIRED) Peripheral IV Line - Single Lumen 09/21/16; 0648; metacarpal vein (top of hand), left; ypej-yik-wjbhza catheter system; 20 gauge; valdo Arteaga; 09/23/16; [...] Cooper MD - 09/21/2016 6:50 PM EST [facility] Department of Anesthesiology Post-procedure Note Patient: Purnima Thacker Procedure Summary Date Anesthesia Start Anesthesia Stop Room / Location 09/21/16 07 1152 [facility] OR 16 / [facility] MAIN OR Procedure Diagnosis Surgeon Responsible Provider @REPLACE AORTIC VALVE, OPEN, W\CPB, W\PROSTHETIC VALVE (WRVU 41.32) (N/A Chest); @AORTOPLASTY FOR SUPRAVALVULAR STENOSIS (WRVU 29.33) (N/A Chest) () Alirio Francisco MD Clark, Jeffrey A, MD All Anesthesia Providers: Anesthesiologist: Luis Enrique Quarles MD Sales Operations Analyst: Henrik Cooper MD Last (1hr) Vitals: BP Temp 36.1 ??C (97 ??F) (09/21/16 1800) Pulse 79 (09/21/16 1800) Resp 11 (09/21/16 1800) SpO2 98 % (09/21/16 1800) Patient Location: [facility] Level of Consciousness: Sedated (Pharmacologic/Intentional) Pain [...] 11/02/2024 12:00 PM EDT [place] [address] 11/02/2024 1:00 PM EDT Office [place] [address] Magdalena Peralta MD [facility] [place] [address] 03/01/2025 4:15 PM EDT Office Visit Dermatology at [place] [address] [place] [address] Marek Bonilla MD [address], [place] [address] documented as of this encounter Visit Diagnoses [...] mg documented in this encounter Care Teams Cross Tie Tram Loader Relationship Specialty Start Date End Date Deborah Quiroga, SALES COACH PCP - General Family Medicine 03/24/16 02/04/23 documented as of this encounter
--- OUTSIDE RECORDS SUMMARY | 2024-06-27 15:22 | XMS_ITS | Encounter Summary ---
[place] [address] Care Team Providers Care Z Os Mainframe Systems Programmer Name Role Phone Ashley Quirogan Cornelius ANURAG Primary Care Provider +1- [phone] Reason for Visit * Reason Onset Date Comments Medication Management 09/14/2016 Encounter Details Date Type Department Care Team (Late st Contact Info) Description 09/14/2016 Telephone Hemat[place] [phone] Alexandrea Greenwood, short order cook Management Social History Tobacco Use Types Packs/Day [...] 11/02/2024 12:00 PM EDT [place] [address] 11/02/2024 1:00 PM EDT Office [place] [address] Magdalena Peralta MD [facility] [address] [place]HEUMAT[place] [address] 03/01/2025 4:15 PM EDT Office Visit Dermatology at [place] [address] [place] [address] Marek Bonilla MD [address], [place] [address] documented as of this encounter Visit Diagnoses Not on filedocumented in this encounter Care Teams Z Os Mainframe Systems Programmer Relationship Specialty Start Date End Date Deborah Quiroga APRN PCP - General Family Medicine 03/24/16 02/04/23 documented as of this encounter
--- OUTSIDE RECORDS SUMMARY | 2024-06-27 15:23 | XMS_ITS | Encounter Summary ---
Author Organization [facility] Address [facility] [place] [address] Care Team Providers Care Orthotics Assistant Name Role Phone Junaid, Deborah Shields APRN Primary Care Provider +[phone] Reason for Visit * Auth/Cert Specialty Diagnoses / Procedures Referred By Crispin t Referred To Contact Diagnoses AVS Procedures CARDIAC CATHETERIZATION Referral ID Status Reason Start Date Expiration Date Visits Re quested Visits Authorized [id number] 1 1 Encounter Details Date Type Department Care Team (Late st Contact Info) Description 06/03/2016 6:32 AM EDT - 06/03/2016 1:10 PM EDT Hospital En[place] [phone] Anjum Oliveros II, MD [facility] [place] [address] Mario Alberto Escobedo MD [facility] [place] [address] Aortic valve stenosis, unspecified etiology; Nonrheumatic aortic [...] by your doctor, do not take any xugf-[id number] medicinesor herbal preparations without first discussing this with your doctor or pharmacist. There is the possibility of side effects and interactions when these are combined. Follow Up Care Who to call with questions or problems If there are any questions or problems that you think might be related to your cardiac cath or angioplasty, contact the contact finger assembler heritage consultant by calling [facility] at . * Patient Instructions* Felicia Corrigan - 06/03/2016 9:33 AM EDT Cardiology Instructions Call your doctor if: Chest pain, dyspnea, pain or swelling in legs occurs. If you have non-emergent questions between now and the time of your follow up appointments: -During 8am-5pm Wednesday through Wednesday call [phone] to speak with a nurse in the cardiology clinic -All other times call [phone] and ask to speak to the loom repairer heritage consultant. MEDICATIONS - restart your spironolactone, discontinue [...] Appointments: Primary care provider: Cardiology: Deborah Hahn, BILINGUAL TRAINER [phone] Follow up as planned or as needed. Dr. Esparza [phone] Other follow-up appointment: Hematology - Dr. Mario [...] 11/02/2024 12:00 PM EDT Appointment [place] [address] 11/02/2024 1:00 PM EDT Office [place] [address] Magdalena Peralta MD [facility] [place] [address] 03/01/2025 4:15 PM EDT Office Visit Dermatology at [place] [address] [place] [address] Marek Bonilla MD [address], [place] [address] documented as of this encounter Procedures Procedure [...] AM EDT) Green Hold Sample in lab. [facility] Blood specimen (specimen) Venous Draw / Unknown 06/03/2016 11:45 AM EDT 06/03/2016 12:12 PM EDT Mario Alberto Escobedo MD CHEMISTRY ORDERABLES [facility] [place] [address] * Methylmalonic acid, serum (06/03/2016 11:45 AM EDT) Methylmalonic Acid (NOVEMBER) 0.21 <=0.40 nmol/mL [facility] Comment: Test Performed by: [facility] - [address] [address] Assembler Dry Cell And Battery: Raymond Chaudhry II, M.D., Ph.D. Blood specimen (specimen) 06/03/2016 11:45 AM EDT 06/03/2016 1:57 PM EDT Narrative Resulting Agency Comment Spec In Lab Mario Alberto Escobedo MD LAB SEND OUT ORDERAB LES Performing Organization Address City/[facility]/ZIP Co de Phone Number [facility] [place] [address] * Granulocyte Antibody (06/03/2016 11:45 AM EDT) Granulocyte Ab (NOVEMBER) Negative Not Applicable [facility] Comment: ADDITIONAL INFORMATION Method: Immunofluorescent Assay Performing Laboratory CLIA# [id number] This test was developed and its performance characteristics determined by [facility] in a manner consistent with CLIA requirements. This test has not been cleared or approved by the U.S. Food and Drug Administration. Test Performed by: [facility] [place] [address] Assembler Dry Cell And Battery: Raymond Chaudhry II, M.D., Ph.D. Blood specimen (specimen) 06/03/2016 11:45 AM EDT 06/03/2016 1:57 PM EDT Narrative Resulting Agency Comment Spec In Lab Mario Alberto Escobedo MD LAB SEND OUT ORDERAB LES Performing Organization Address [facility] Co de Phone Number [facility] [place] [address] * TSH (06/03/2016 11:45 AM EDT) Thyroid Stimulating Hormone 2.18 0.27 - 4.20 mcIU/mL [facility] Blood specimen (specimen) 06/03/2016 11:45 AM EDT 06/03/2016 12:11 PM EDT Narrative Resulting Agency Comment Spec In Lab Mario Alberto Escobedo MD CHEMISTRY ORDERABLES Performing Organization Address City/[facility]/ZIP Co de Phone Number [facility] [place] [address] * Homocysteine Total, Plasma (06/03/2016 11:45 AM EDT) Homocystine 9 <=15 mcmol/L [facility] Blood specimen (specimen) 06/03/2016 11:45 AM EDT 06/03/2016 12:11 PM EDT Narrative Resulting Agency Comment Spec In Lab Mario Alberto Escobedo MD CHEMISTRY ORDERABLES Performing Organization Address City/[facility]/ZIP Co de Phone Number [facility] [place] [address] * Folate, serum (06/03/2016 11:45 AM EDT) Folate >20.0 4.8 - 24.2 ng/mL [facility] Blood specimen (specimen) 06/03/2016 11:45 AM EDT 06/03/2016 12:04 PM EDT Narrative Resulting Agency Comment Spec In Lab Mario Alberto Escobedo MD CHEMISTRY ORDERABLES Performing Organization Address City/[facility]/ZIP Co de Phone Number [facility] [place] [address] * (ABNORMAL) Sedimentation rate (06/03/2016 11:45 AM EDT) Sedimentation Rate Automated 41(H) 0 - 20 mm/hr [facility] Blood specimen (specimen) 06/03/2016 11:45 AM EDT 06/03/2016 12:04 PM EDT Narrative Resulting Agency Comment Spec In Lab Mario Alberto Escobedo MD HEMATOLOGY ORDERABLE S [facility] [place] [address] * Lactate Dehydrogenase (06/03/2016 11:45 AM EDT) Lactate Dehydrogenase 164 110 - 220 unit/L [facility] Blood specimen (specimen) 06/03/2016 11:45 AM EDT 06/03/2016 12:11 PM EDT Narrative Resulting Agency Comment Spec In Lab Mario Alberto Escobedo MD CHEMISTRY ORDERABLES [facility] [place] [address] * Comprehensive metabolic panel (non-fasting) (06/03/2016 11:45 AM EDT) Glucose 90 65 - 199 mg/dL [facility] Comment:Diabetes: >=200 mg/d L plus symptoms Blood Urea Nitrogen 11 8 - 18 mg/dL [facility] Creatinine 0.83 0.70 - 1.20 mg/dL [facility] Comment: Please note that the pediatric reference intervals supplied above were not validated at [facility]. Results from pediatric patients should be interpreted in conjunction to the patient's age, height and muscle mass. Sodium 143 135 - 145 mmol/L [facility] Potassium 4.0 3.5 - 5.0 mmol/L [facility] Comment: Please note: ??Patients with WBC >100,000 may have falsely elevated Potassium levels. ??For accurate Potassium quantification in these patients send serum separator tube (gold top) for subsequent determinations. ??Contact the Clinical Chemistry Laboratory if there are any questions. Chloride 104 98 - 107 mmol/L [facility] Carbon Dioxide 25 22 - 31 mmol/L [facility] Anion Gap 14 5 - 15 mmol/L [facility] Calcium 9.2 8.5 - 10.5 mg/dL [facility] Protein, Total 7.0 6.1 - 8.0 gm/dL [facility] Albumin 4.0 3.2 - 5.2 gm/dL [facility] Aspartate Aminotransferase 17 0 - 30 unit/L [facility] Alanine Aminotransferase 9 0 - 30 unit/L [facility] Alkaline Phosphatase 81 40 - 104 unit/L [facility] Bilirubin, Total 0.4 0.2 - 1.3 mg/dL [facility] Bilirubin, Direct 0.1 0.0 - 0.3 mg/dL [facility] Est Glomerular [...] the following links into your internet browser. [email or web address] Blood specimen (specimen) 06/03/2016 11:45 AM EDT 06/03/2016 12:11 PM EDT Narrative Resulting Agency Comment Spec In Lab Mario Alberto Escobedo MD CHEMISTRY ORDERABLES [facility] [place] [address] documented in this encounter Visit Diagnoses Diagnosis [...] Unit) 0940 (New Bag - Prov ider: Selbe Espinoza RN - Comment: NS 500 CC [...] Hernandez) documented in this encounter Care Teams Orthotics Assistant Relationship Specialty Start Date End Date Deborah Quiroga, BILINGUAL TRAINER PCP - General Family Medicine 03/24/16 02/04/23 documented as of this encounter
--- OUTSIDE RECORDS SUMMARY | 2024-06-27 15:23 | XMS_ITS | Encounter Summary ---
Author Organization [facility] Address [place] [address] Care Team Providers Care Systems Architect Name Role Phone Deborah Quiroga APRN Primary Care Provider [phone] [phone] Encounter Details Date Type Department Care Team (Latest Contact Info) Description 05/19/2016 11:52 AM EDT - 05/19/2016 11:59 PM EDT Hospital Encounter XRay at [address] [place] [address] Alirio Esparza MD Nonrheumatic aortic valve stenosis [...] EDT Appointment [place] [address] 11/02/2024 1:00 PM EDT Office [place] [address] Magdalena Peralta MD [facility] [place] [address] 03/01/2025 4:15 PM EDT Office Visit Dermatology at [place] [address] [place] [address] Marek Bonilla MD [address], [place] [address] documented as of this encounter Procedures Procedure [...] disorders documented in this encounter Care Teams Systems Architect Relationship Specialty Start Date End Date Deborah Quiroga, PRE SALES SYSTEMS ENGINEER PCP - General Family Medicine 03/24/16 02/04/23 documented as of this encounter
--- OUTSIDE RECORDS SUMMARY | 2024-06-27 15:23 | XMS_ITS | Encounter Summary ---
Author Organization [facility] Address [facility] [place] [address] Care Team Providers Care Management Lecturer Name Role Phone Deborah Quiroga ANURAG Primary Care Provider +1 [phone] Encounter Details Date Type Department Care Team (Late st Contact Info) Description 08/04/2016 External Results [place] [address] Alexandrea Greenwood RN Neutropenia, unspecified [...] 11/02/2024 12:00 PM EDT [place]oint[place] [address] 11/02/2024 1:00 PM EDT Office [place] [address] Magdalena Peralta MD [facility] [place] [address] 03/01/2025 4:15 PM EDT Office Visit Dermatology at [address] [address] Marek Bonilla MD [address], [place] [address] documented as of this encounter Procedures Procedure [...] type documented in this encounter Care Teams Management Lecturer Relationship Specialty Start Date End Date Deborah Quiroga APRN PCP - General Family Medicine 03/24/16 02/04/23 documented as of this encounter
--- OUTSIDE RECORDS SUMMARY | 2024-06-27 15:23 | XMS_ITS | Encounter Summary ---
Author Organization [facility] Address [facility] [place] [address] Care Team Providers Care Strapping Machine Tender Name Role Phone Deborah Quiroga ANURAG Primary Care Provider [phone]- [phone] Encounter Details Date Type Department Care Team (Late st Contact Info) Description 06/16/2016 Orders Only Hematology [place] [address] Nitesh Pina Jr., MD [facility] [address] [place] [address] Cyclical neutropenia Social History Tobacco Use Types [...] 12:00 PM EDT Appointment [place] [address] 11/02/2024 1:00 PM EDT Office [place] [address] Magdalena Peralta MD [facility] DR RHEUMATOLOGY DEPT [place], [place] [address] 03/01/2025 4:15 PM EDT Office Visit Dermatology at [place] [address] [place] [address] Marek Bonilla MD [address], [place] [place] [address] documented as of this encounter Visit Diagnoses Diagnosis Cyclical neutropenia Cyclic neutropenia documented in this encounter Care Teams Strapping Machine Tender Relationship Specialty Start Date End Date Deborah Quiroga, ASSEMBLER METAL BUILDING PCP - General Family Medicine 03/24/16 02/04/23 documented as of this encounter
--- OUTSIDE RECORDS SUMMARY | 2024-06-27 15:23 | XMS_ITS | Encounter Summary ---
Author Organization [facility] Address [facility] [place] [address] Care Team Providers Care Cfd Engineer Name Role Phone Deborah Quiroga ANURAG Primary Care Provider [phone] Encounter Details Date Type Department Care Team (Late st Contact Info) Description 07/22/2016 External Results Hematology [place] [address] Alexandrea rGeenwood RN Neutropenia, unspecified type Social History Tobacco [...] 11/02/2024 12:00 PM EDT Appointment [place] [address] 11/02/2024 1:00 PM EDT Office [place] [address] Magdalena Peralta MD [facility] [place] [address] 03/01/2025 4:15 PM EDT Office Visit Dermatology at [address] [address] Marek Bonilla MD [address], [place] [address] documented as of this encounter Procedures Procedure Name Priority Date/Time Associated Diagnosis Comments COPPER, SERUM Routine 07/20/2016 10:30 AM EST Neutropenia, unspecified type CMV PCR, QUANTITATIVE Routine 07/20/2016 10:30 AM EST Neutropenia, unspecified type MONONUCLEOSIS SCREEN ([facility]) Routine 07/20/2016 10:30 AM EST Neutropenia, unspecified type CBC (WITH DIFF) Routine 07/20/2016 10:30 AM EST Neutropenia, unspecified type documented in this encounter Results * Copper, serum (07/20/2016 10:30 AM EST) Copper (NOVEMBER) 1.09 0.75 - 1.45 EXTERNAL LAB Blood specimen (specimen) 07/20/2016 10:30 AM EST Markel Borjas MD LAB SEND OUT ORDER JODIE Performing Organization Address [facility]/ZIP Co de Phone Number EXTERNAL LAB * [...] type documented in this encounter Care Teams Cfd Engineer Relationship Specialty Start Date End Date Deborah Quiroga, LAB RN PCP - General Family Medicine 03/24/16 02/04/23 documented as of this encounter
--- OUTSIDE RECORDS SUMMARY | 2024-06-27 15:23 | XMS_ITS | Encounter Summary ---
Author Organization [facility] [place] [address] Care Team Providers Care Public Health Engineer Name Role Phone Ashley Quirogazac Shields APRN Primary Care Provider +1 [phone] Reason for Visit * Consultation (Urgent) - Closed Specialty Diagnoses / Procedures Referred By Contac t Referred To Contact Cardiac Surgery Diagnoses aortic stenosis, consideration for valve replacement Antelmo Burrell MD [address] [place] [address] [place] [address] Alirio Esparza MD [facility] [place] [address] Referral ID Status Reason Start Date Expiration Date V isits Requested Visits Authorized [id number] Closed Connection Center 03/04/2016 03/04/2017 1 1 Encounter Details Date Type Department Care Team (Late st Contact Info) Description 03/24/2016 10:40 AM EDT Office [place] [address] Alirio Esparza MD Aortic valve stenosis, unspecified [...] This is a patient of Antelmo Burrell [facility]. Mrs. Thacker is being sent [...] 30 minute visit, 20 minutes were spent [id number] with the patient discussing aortic stenosis and valve replacement. documented in this encounter Plan of Treatment Upcoming Encounters Date Type Department Care Team (Late st Contact Info) Description 11/02/2024 12:00 PM EDT Appointment [place] [address] 11/02/2024 1:00 PM EDT Office [place] [address] Magdalena Peralta MD [facility] [place] [address] 03/01/2025 4:15 PM EDT Office Visit Dermatology at [place] [address] [place] [address] Marek Bonilla MD [address] [place] [address] documented as of this encounter Visit Diagnoses Diagnosis Aortic valve stenosis, unspecified etiology documented in this encounter Care Teams Public Health Engineer Relationship Specialty Start Date End Date Deborah Quiroga APRN PCP - General Family Medicine 03/24/16 02/04/23 documented as of this encounter
--- OUTSIDE RECORDS SUMMARY | 2024-06-27 15:23 | XMS_ITS | Encounter Summary ---
[place] [address] Care Team Providers Care Catalyst Concentration Operator Name Role Phone Deborah Quiroga ANURAG Primary Care Provider [phone]- [phone] Reason for Visit * Reason Onset Date Comments Medical Care Coordination 07/31/2016 Encounter Details Date Type Department Care Team (Late st Contact Info) Description 07/31/2016 Telephone Hematology [place] [address] Alexandrea Greenwood RN Medical Care Coordination Social [...] RN spoke with Aydee of the [facility] lab who states they can draw pt's cbc on 08/04/15, RN faxed lab req to [phone] at Aydee's request. RN instructed pt on Dr. Borjas's direction above. Pt verbalized understanding. documented in this encounter Plan of Treatment Upcoming Encounters Date Type Department Care Team (Late st Contact Info) Description 11/02/2024 12:00 PM EDT Appointment [place] [address] 11/02/2024 1:00 PM EDT Office [place] [address] Magdalena Peralta MD [facility] [place] [address] 03/01/2025 4:15 PM EDT Office Visit Dermatology at [place] [address] [place] [address] Marek Bonilla MD [address] [place] Katherine [place] [address] documented as of this encounter Visit Diagnoses Not on filedocumented in this encounter Care Teams Catalyst Concentration Operator Relationship Specialty Start Date End Date Deborah Quiroga APRN PCP - General Family Medicine 03/24/16 02/04/23 documented as of this encounter
--- OUTSIDE RECORDS SUMMARY | 2024-06-27 15:23 | XMS_ITS | Encounter Summary ---
[place] [address] Care Team Providers Care Sub Arc Operator Name Role Phone Ashley Quirogazac Shields APRN Primary Care Provider [phone] Encounter Details Date Type Department Care Team (Late st Contact Info) Description 03/24/2016 Notes [place] [address] Alfa Lua Social History Tobacco Use Types [...] assessments completed: Wadsworth Score: 6/6 IADL: 7/7 Import Coordination And Production Head Strength Trials: 18.4, 15.0, 16.8 (right hand dominant) 5 meter walk test in seconds x3: 4.98, 4.88, 4.45 KCCQol: 98% Alfa Lua documented in this encounter Plan of Treatment Upcoming Encounters Date Type Department Care Team (Late st Contact Info) Description 11/02/2024 12:00 PM EDT Appointment [place] [address] 11/02/2024 1:00 PM EDT Office [place] [address] Magdalena Peralta MD [facility] [place] [address] 03/01/2025 4:15 PM EDT Office Visit Dermatology at [place] [address] [facility] [place] [address] Marek Bonilla MD [address], [place] [address] documented as of this encounter Visit Diagnoses Not on filedocumented in this encounter Care Teams Sub Arc Operator Relationship Specialty Start Date End Date Deborah Quiroga APRN PCP - General Family Medicine 03/24/16 02/04/23 documented as of this encounter
--- OUTSIDE RECORDS SUMMARY | 2024-06-27 15:23 | XMS_ITS | Encounter Summary ---
Author Organization [facility] Address [facility] [place] [address] Care Team Providers Care Room Worker Name Role Phone Junaid Deborah Shields APRN Primary Care Provider Encounter Details Date Type Department Care Team (Late st Contact Info) Description 07/17/2016 9:00 AM EST Office Visit [place] [address] Markel Borjas MD [facility] [address] [place] [address] Neutropenia, unspecified type Social History Tobacco Use [...] 07/17/2016 9:00 AM EST Hematology Outpatient Clinic [facility] Hematology Outpatient Consult Note CC: [id number] [...] TOUCH PREP, CLOT SECTION, CORE ??BIOPSY); [OSR# [id number], COLLECTED 06/23/2016, 19 SLIDES]: ?1. 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 Will consi kanwal talking to pt's change house attendant about a switch from ACEI to ARB [...] the original note were not included. [facility] HEM ONC [facility] [phone] Date: 07/17/16 Patient Name: Purnima Thacker : 1955 Diagnosis: neutropenia Referral to [site]: [facility] Orders: ? Labs: Fax results to . [x] Draw CBC, copper level, CMV PCR, mononucleosis screen on 07/20 Repeat CBC on 07/30 (to measure response of WBC after Neulasta) ? Growth factor: [x] Neulasta 6mg SQ injection x 1 on 07/20/2016 Signature: Markel Borjas MD beeper # [id number] documented in this encounter Plan of Treatment Upcoming Encounters Date Type Department Care Team (Late st Contact Info) Description 11/02/2024 12:00 PM EDT [place] [address] 11/02/2024 1:00 PM EDT Office [place] [address] Magdalena Peralta MD [facility] [place] [address] 03/01/2025 4:15 PM EDT Office Visit Dermatology at [address] [place] [address] Marek Bonilla MD [address], [place] [address] documented as of this encounter Results * (ABNORMAL) CBC (with Diff) (07/31/2016 9:40 AM EST) Pathologist [facility] White Blood Cell 2.23(EXTER NAL/ABN) 4.4 - 10.8 EXTERNAL LAB Hemoglobin 12.6 12.0 - 16.0 EXTERNAL LAB Hematocrit 37.7 36.0 - 46.0 EXTERNAL LAB Platelet 167 130 - 400 EXTERNAL LAB Neutrophil Absolute (ANC) - Automated 1.17(EXTER NAL/ABN) 1.2 - 6.7 EXTERNAL LAB Blood specimen (specimen) 07/31/2016 9:40 AM EST Markel Borjas MD HEMATOLOGY ORDERAB LES Performing Organization Address City/[facility]/ZIP Co de Phone Number EXTERNAL LAB * Mononucleosis Screen (07/20/2016 10:30 AM EST) Pathologist [facility] Mononucleosis Screen neg neg - neg EXTERNAL LAB Blood specimen (specimen) 07/20/2016 10:30 AM EST Markel Borjas MD IMMUNOLOGY ORDERAB LES EXTERNAL LAB * Copper, serum (07/20/2016 10:30 AM EST) Pathologist [facility] Copper (NOVEMBER) 1.09 0.75 - 1.45 EXTERNAL LAB Blood specimen (specimen) 07/20/2016 10:30 AM EST Markel Borjas MD LAB SEND OUT ORDER JODIE EXTERNAL LAB * CMV PCR, Quantitative (07/20/2016 10:30 AM EST) [facility] CMV PCR,Quantitati ve undetected EXTERNAL LAB Blood [...] type documented in this encounter Care Teams Room Worker Relationship Specialty Start Date End Date Deborah Quiroga, ELECTRIC SEALING MACHINE OPERATOR PCP - General Family Medicine 03/24/16 02/04/23 documented as of this encounter
--- OUTSIDE RECORDS SUMMARY | 2024-06-27 15:23 | XMS_ITS | Encounter Summary ---
[place] [address] Care Team Providers Care Search Lead Name Role Phone Ashley Quirogazac Shields APRN Primary Care Provider [phone]- [phone] Encounter Details Date Type Department Care Team (Late st Contact Info) Description 07/03/2016 External Results [place]ematology [place] [address] Matthew Cervantes, DO [address] [place] [phone] Social History Tobacco Use Types Packs/Day Years [...] 11/02/2024 12:00 PM EDT [place] [address] 11/02/2024 1:00 PM EDT Office [place] [address] Magdalena Peralta MD [facility] [place] [address] 03/01/2025 4:15 PM EDT Office Visit Dermatology at [place] [address] [place] [address] Marek Bonilla MD [address], [address] [address] documented as of this encounter Procedures Procedure Name Priority Date/Time Associated Diagnosis Comments BONE MARROW ASPIRATION PERFO RMED WITH BONE MARRROW BIOPSY Routine 06/28/2016 documented in this encounter Results * BONE MARROW ASPIRATION PREFORMED WITH BONE MARRROW BIOPSY (06/28/2016) Matthew Cervantes DO GENERAL SURGI DANIEL ORDERABLES documented in this encounter Visit Diagnoses Not on filedocumented in this encounter Care Teams Search Lead Relationship Specialty Start Date End Date Deborah Quiroga, ANURAG PCP - General Family Medicine 03/24/16 02/04/23 documented as of this encounter
--- OUTSIDE RECORDS SUMMARY | 2024-06-27 15:23 | XMS_ITS | Encounter Summary ---
Author Organization [facility] Address [facility] [place] [address] Care Team Providers Care Still Operator Batch Or Continuous Name Role Phone Deborah Quiroga ANURAG Primary Care Provider [phone] [phone] Encounter Details Date Type Department Care Team (Late st Contact Info) Description 07/31/2016 External Results Hematology [place] [address] Alexandrea Greenwood RN Neutropenia, unspecified [...] 11/02/2024 12:00 PM EDT Appointment [place] [address] 11/02/2024 1:00 PM EDT Office [place] [address] Magdalena Peralta MD [facility] [place] [address] 03/01/2025 4:15 PM EDT Office Visit Dermatology at [address] [address] Marek Bonilla MD [address], [place] [address] documented as of this encounter Procedures Procedure [...] in this encounter Care Teams Still Operator Batch Or Continuous Relationship Specialty Start Date End Date Deborah Quiroga APRN PCP - General Family Medicine 03/24/16 02/04/23 documented as of this encounter
--- OUTSIDE RECORDS SUMMARY | 2024-06-27 15:23 | XMS_ITS | Encounter Summary ---
Author Organization [facility] Address [facility] [place] [address] Care Team Providers Care Regional Marketing Director Name Role Phone Ashley Quirogan Cornelius ANURAG Primary Care Provider +1 [phone] Encounter Details Date Type Department Care Team (Late st Contact Info) Description 08/11/2016 Telephone H[place]ology [place] [phone] Markel Borjas MD [facility] [address] [place] [address] Social History Tobacco Use Types Packs/Day Years [...] 11/02/2024 12:00 PM EDT [place] [address] 11/02/2024 1:00 PM EDT [place] [address] Magdalena Peralta MD [facility] [place] [address] 03/01/2025 4:15 PM EDT Office Visit Dermatology at [place] [address] [place] [address] Marek Bonilla MD [address], [place] [address] documented as of this encounter Visit Diagnoses Not on filedocumented in this encounter Care Teams Regional Marketing Director Relationship Specialty Start Date End Date Deborah Quiroag APRN PCP - General Family Medicine 03/24/16 02/04/23 documented as of this encounter
--- OUTSIDE RECORDS SUMMARY | 2024-06-27 15:23 | XMS_ITS | Encounter Summary ---
Author Organization [facility] Address [facility] [place] [address] Care Team Providers Care Frame Changer Name Role Phone Ashley Quirogan Cornelius ANURAG Primary Care Provider [phone] Encounter Details Date Type Department Care Team (Latest Contact Info) Description 05/19/2016 11:20 AM EDT Laboratory [place] [address] Nonrheumatic aortic valve stenosis Social History Tobacco [...] 11/02/2024 12:00 PM EDT Appointment [place] [address] 11/02/2024 1:00 PM EDT Office [place] [address] Magdalena Peralta MD [facility] [place] [address] 03/01/2025 4:15 PM EDT Office Visit Dermatology at [address] [phone] Marek Bonilla MD [address] [place] [address] RD, [place] [address] documented as of this encounter Procedures Procedure Name Priority Date/Time Associated Diagnosis Comments SCAN, PERIPHERAL BLOOD Routine 05/19/2016 11:32 AM EDT HEMOGRAM Routine 05/19/2016 11:32 AM EDT Nonrheumatic aortic valve stenosis DIFFERENTIAL, AUTOMATED Routine 05/19/2016 11:32 AM EDT Nonrheumatic aortic valve stenosis TYPE AND SCREEN, SDP (FUTURE SURGERY, [facility] SAME DAY PROGRAM ONLY) Routine 05/19/2016 11:32 [...] HEMATOLOGY ORDERABL ES [facility] [place] [address] * (ABNORMAL) Differential, Automated (05/19/2016 11:32 AM EDT) Neutrophil % 25.9 % [facility] Neutrophil Absolute 0.42(Crit ical) 1.70 - 6.10 x10(3)/[facility] Comment: This result has been called to DR ALIRIO ESPARZA by Alivia Ibarra on 05 19 2016 at 1228, and has been read back. Lymph % 59.9 % [facility] Lymphocytes Abs 1.0 0.9 - 3.2 x10(3)/[facility] LABOR[facility] Monocyte % 13.0 % [facility] Monocyte Abs 0.2(L) 0.3 - 0.9 x10(3)/[facility] LABORATORY Eos % 0.6 % [facility] Eosinophils Abs 0.0 0.0 - 0.4 x10(3)/[facility]OR[facility] Basophil % 0.6 % [facility] Baso Absolute 0.0 0.0 - 0.1 x10(3)/[facility] LABOR[facility] Immature Gran % 0.00 % [...] HEMATOLOGY ORDERABL ES [facility] [place] [address] * (ABNORMAL) Hemogram (05/19/2016 11:32 AM EDT) [...] Platelet 227 145 - 357 x10(3)/ L [facility] RDW Standard [...] HEMATOLOGY ORDERABL ES [facility] [place] [address] * Antibody screen (05/19/2016 11:32 AM EDT) Ab Screen Interp Negative [facility] Expires at 0049 on: 07/03/2016 [facility] Comment: Corrected from 06/11/16 12:00 [Unknown] on 06/09/16 05:51 by Bethanie Tomlinson I.. Corrected from 07/03/16 12:00 [Unknown] on 05/21/16 06:00 by Shelia Barrera Blood specimen (specimen) 05/19/2016 11:32 AM EDT 05/19/2016 11:35 AM EDT Narrative Resulting Agency Comment Spec In Lab Alirio Esparza MD BLOOD BANK LAB BETH ORTEGAROMERO [facility] [place] [address] * ABO/Rh Typing (05/19/2016 11:32 AM EDT) Pathologist [facility] ABORH Type B Pos [facility] Blood specimen (specimen) 05/19/2016 11:32 AM EDT 05/19/2016 11:35 AM EDT Narrative Resulting Agency Comment Spec In Lab Alirio Esparza MD BLOOD BANK LAB BETH ALEJO Performing Organization Address City/[facility]/ZIP Co de Phone Number [facility] [place] [address] * Basic Metabolic Panel (non-fasting) (05/19/2016 11:32 AM EDT) [facility] Glucose 86 65 - 199 mg/dL [facility] [...] the following links into your internet browser. [email or web address] Blood specimen (specimen) 05/19/2016 11:32 AM EDT 05/19/2016 11:41 AM EDT Narrative Resulting Agency Comment Spec In Lab Alirio Esparza MD CHEMISTRY ORDERABLE S [facility] [place] [address] documented in this encounter Visit Diagnoses Diagnosis Nonrheumatic aortic valve stenosis Aortic valve disorders documented in this encounter Care Teams Frame Changer Relationship Specialty Start Date End Date Deborah Quiroga, ANURAG PCP - General Family Medicine 03/24/16 02/04/23 documented as of this encounter
--- OUTSIDE RECORDS SUMMARY | 2024-06-27 15:23 | XMS_ITS | Encounter Summary ---
Author Organization [facility] Address [facility] [place] [address] Care Team Providers Care On Site Coordinator Name Role Phone Deborah Quiroga ANURAG Primary Care Provider +1- [phone] Encounter Details Date Type Department Care Team (Late st Contact Info) Description 06/09/2016 Orders Only Hematology [place] [address] Nitesh Pina Jr., MD [facility] [address] [place] [address] Cyclical neutropenia Social History Tobacco Use Types [...] 11/02/2024 12:00 PM EDT Appointment [place] [address] 11/02/2024 1:00 PM EDT Office [place] [address] Magdalena Peralta MD [facility] [address] RHEUMATOLOGY DEPT [place], [place] [address] 03/01/2025 4:15 PM EDT Office Visit Dermatology at [place] [address] [place] [address] Marek Bonilla MD [address], [place] [address] documented as of this encounter Results * Immunophenotyping Flow Cytometry (06/09/2016 4:53 PM EST) Immunophenotyping Flow See Comment [facility] Comment: When completed by the Pathologist, the Flow Cytometry Report ([id number]) will display under the Pathology Results section within eD. Specimen of unknown material (specimen) 06/09/2016 4:53 PM EST 06/09/2016 5:00 PM EST Narrative Resulting Agency Comment Spec In Lab Nitesh Pina Jr., MD HEMATOLOGY ORDERABLE S Performing Organization Address City/State/[facility] Co de Phone Number [facility] [place] [place] [address] documented in this encounter Visit Diagnoses Diagnosis Cyclical neutropenia Cyclic neutropenia documented in this encounter Care Teams On Site Coordinator Relationship Specialty Start Date End Date Deborah Quiroga APRN PCP - General Family Medicine 03/24/16 02/04/23 documented as of this encounter
--- OUTSIDE RECORDS SUMMARY | 2024-06-27 15:23 | XMS_ITS | Encounter Summary ---
Author Organization [facility] Address [facility] [place] [address] Care Team Providers Care Graduate Student Instructor Name Role Phone Eitan Danni ANURAG Primary Care Provider Encounter Details Date Type Department Care Team (Latest Contact Info) Description 01/23/2014 7:45 AM EDT - 01/23/2014 5:50 PM EDT Hospital Encounter [place] [address] Alan Jacobson MD [facility] [place] [address] Cardiomyopathy; SOB (shortness of breath) Discharge Disposition: [...] by your doctor, do not take any [id number] medicines or herbal preparations without first discussing this with your doctor or pharmacist. There is the possibility of side effect and interactions when these are combined. Follow up Care Who to Call with Questions or Problems If there are any questions or problems that you think might be related to your cardiac cath or angioplasty, contact the labor trainer calibration checker by calling [facility] at . documented in this [...] 11/02/2024 12:00 PM EDT Appointment [place] [address] 11/02/2024 1:00 PM EDT Office [place] [address] Magdalena Peralta MD [facility] [place] [address] 03/01/2025 4:15 PM EDT Office Visit Dermatology at [place] [address] [place] [address] Marek Bonilla MD [address], [place] [address] documented as of this encounter Procedures Procedure Name Priority Date/Time Associated Diagnosis Comments ECHOCARDIOGRAM TRANSTHORACIC Routine 01/23/2014 3:17 PM EDT SOB (shortness of breath) documented in this encounter Results * Echocardiogram Transthoracic(Leb) (01/23/2014 3:17 PM EDT) [facility] EF 50 HEARTLAB SYSTEM Anatomical Region Laterality Modality Other 01/23/2014 Narrative 01/23/2014 4:35 PM EDT Procedure: ? Transthoracic Echocardiogram Patient: ? ANDREW ONESIMO M ?(Age): 1955(58) Med Rec#: ?[id number] ? Sex: ?F ? Site Loc: [facility] ? Ht / Wt: ??158(cm)/93(kg) Pt. Loc: ? Adult Floor ?BSA: ?2.02 Study Date: ?01/23/2014 ? Pt. Type: Inpatient Tape: ? Referring: Lee Kincaid ([id number]) Referring: ANNALISA Dial Equipment Engineer: Miguel Beverly Diagnosis:CPT Code(s): ??Echo Full (18216), ??Spectral Doppler (14039), Color Doppler (96241), Indication(s): ??Aortic stenosis Rhythm: Sinus HR ?BP [...] ? Mid-Inferior ?Hypokinetic ? Mid-Inferoseptal ?Hypokinetic ? Danese-Septal ? Hypokinetic ? Danese-Anterior ? Hypokinetic ? Danese-Lateral ?Hypokinetic ? Danese-Inferior ? Hypokinetic ? Danese-Tip ?Hypokinetic ? Chambers ?Value ?Units (Range) ? [...] Patient: ANDREW Mejias (Age): 1955(58) Med Rec#: [id number] Sex: F Site Loc: [facility] Ht / Wt: 158(cm)/93(kg) Pt. Loc: Adult Floor BSA: 2.02 Study Date: 01/23/2014 Pt. Type: Inpatient Tape: Referring: Lee Kincaid ([id number]) Referring: ANNALISA Dial Equipment Engineer: Miguel Beverly Diagnosis:CPT Code(s): Echo Full (36644), Spectral Doppler (18419), Color Doppler (07959), Indication(s): Aortic stenosis Rhythm: Sinus HR BP [...] Hypokinetic Mid-Posterolateral Hypokinetic Mid-Inferior Hypokinetic Mid-Inferoseptal Hypokinetic Danese-Septal Hypokinetic Danese-Anterior Hypokinetic Danese-Lateral Hypokinetic Danese-Inferior Hypokinetic Danese-Tip Hypokinetic Chambers Value Units (Range) IVSd 2D [...] Routine 1046 (Given - Provid er: Nora aKng RN) diphenhydrAMINE (BENADRYL) capsule 25 mg (COMPLETED) [...] RN) documented in this encounter Care Teams Graduate Student Instructor Relationship Specialty Start Date End Date Danni Laird APRN [address] [place] [address] PCP - General 01/23/14 11/11/14 documented as of this encounter
--- OUTSIDE RECORDS SUMMARY | 2024-06-27 15:23 | XMS_ITS | Encounter Summary ---
[place] [address] Care Team Providers Care Men'S And Boys' Clothing Salesperson Name Role Phone Deborah Quiroga ANURAG Primary Care Provider [phone]- [phone] Reason for Visit * Reason Onset Date Comments Medical Care Coordination 07/17/2016 Encounter Details Date Type Department Care Team ([facility] Contact Info) Description 07/17/2016 Telephone Hematology [place] [address] Alexandrea Greenwood RN Medical Care Coordination Social [...] 07/17/2016 12:07 PM EST Message received from principal secretary: Injection/Infusion Referral Call placed to [phone]). Spoke w/ Pasquale. Services to be provided for pt are: Labs @ 10am ([facility]) & Neulasta @ 11am on 07/20/16, CBC only on 07/30/16 Pasquale confirmed they would provide services to pt and I left [facility] for pt to call for appt info. Pt demographics, office note, med list and orders faxed to [facility] & [facility] documented in this encounter Plan of Treatment Upcoming Encounters Date Type Department Care Team (Late st Contact Info) Description 11/02/2024 12:00 PM EDT Appointment [place] [address] 11/02/2024 1:00 PM EDT Office [place] [address] Magdalena Peralta MD [facility] [address] [place] [address] 03/01/2025 4:15 PM EDT Office Visit Dermatology at [place] [address] [place] [address] Marek Bonilla MD [address] [place] [address] documented as of this encounter Visit Diagnoses Not on filedocumented in this encounter Care Teams Men'S And Boys' Clothing Salesperson Relationship Specialty Start Date End Date Deborah Quiroga APRN PCP - General Family Medicine 03/24/16 02/04/23 documented as of this encounter
--- OUTSIDE RECORDS SUMMARY | 2024-06-27 15:23 | XMS_ITS | Encounter Summary ---
Author Organization [facility] [place] [address] Care Team Providers Care Polymer Chemist Name Role Phone Jerel Sofia Garcia APRN Primary Care Provider [phone] [phone] Encounter Details Date Type Department Care Team (Latest Contact Info) Description 11/12/2014 8:10 AM EDT - 11/12/2014 11:59 PM EDT Hospital [place] [address] CLINIC, DR ABE Burrell, Antelmo Porter MD [facility] [address] [place], [place] [address] Discharge Disposition: Home Social History Tobacco Use [...] PM EDT Appointment [place] [address] 11/02/2024 1:00 PM EDT Office [place] [address] Magdalena Peralta MD [facility] [address] RHEUMATOLOGY DEPT [place], [place] [address] 03/01/2025 4:15 PM EDT Office Visit Dermatology at [place] [address] [place] [address] Marek Bonilla MD [address] [place] [address] documented as of this encounter Procedures Procedure [...] mLs documented in this encounter Care Teams Polymer Chemist Relationship Specialty Start Date End Date Sofia Beltrán APRN [address] [place] [address] PCP - General 11/12/14 03/23/16 documented as of this encounter
--- OUTSIDE RECORDS SUMMARY | 2024-06-27 15:23 | XMS_ITS | Encounter Summary ---
Author Organization [facility] [place] [address] Care Team Providers Care Biodiesel Plant Superintendent Name Role Phone Eitan Danni ANURAG Primary Care Provider +1 [phone] Encounter Details Date Type Department Care Team (Late st Contact Info) Description 01/22/2014 Telephone Cardiology at [address] [phone] Cynthia Arrington LPN Social History Tobacco Use [...] LPN - 01/23/2014 2:39 PM EDT This clinical writer did not receive a call back [...] 12:00 PM EDT Appointment [place] [address] 11/02/2024 1:00 PM EDT Office [place] [address] Magdalena Peralta MD [facility] [place] [address] 03/01/2025 4:15 PM EDT Office Visit Dermatology at [place] [address] [place] [address] Marek Bonilla MD [address] [place] [address] documented as of this encounter Visit Diagnoses Not on filedocumented in this encounter Care Teams Biodiesel Plant Superintendent Relationship Specialty Start Date End Date Danni Laird APRN [address] [place] [address] PCP - General 01/23/14 11/11/14 documented as of this encounter
--- OUTSIDE RECORDS SUMMARY | 2024-06-27 15:23 | XMS_ITS | Encounter Summary ---
[place] [address] Care Team Providers Care Toll Test Desk Worker Name Role Phone Deborah Quiroga APRN Primary Care Provider [phone] Reason for Visit * Reason Onset Date Comments Pre Procedure Call 06/18/2016 Encounter Details Date Type Department Care Team (Late st Contact Info) Description 06/18/2016 Telephone Hemat[place] [address] Alexandrea Greenwood RN Pre Procedure [...] 11/02/2024 12:00 PM EDT [place] [address] 11/02/2024 1:00 PM EDT Office [place] [address] Magdalena Peralta MD [facility] [place] [address] 03/01/2025 4:15 PM EDT Office Visit Dermatology at [place] [address] [facility] [place] [address] Marek Bonilla MD [address], [place] [address] documented as of this encounter Visit Diagnoses Not on filedocumented in this encounter Care Teams Toll Test Desk Worker Relationship Specialty Start Date End Date Deborah Quiroga APRN PCP - General Family Medicine 03/24/16 02/04/23 documented as of this encounter
--- OUTSIDE RECORDS SUMMARY | 2024-06-27 15:23 | XMS_ITS | Encounter Summary ---
Author Organization [facility] Address [facility] [place] [address] Care Team Providers Care Ornament Stitcher Name Role Phone Junaid Deborah Shields APRN Primary Care Provider [phone] Encounter Details Date Type Department Care Team (Latest Contact Info) Description 05/19/2016 11:00 AM EDT Clinical [place] [phone] Nonrheumatic aortic valve stenosis Social History Tobacco [...] 11/02/2024 12:00 PM EDT Appoint[place] [address] 11/02/2024 1:00 PM EDT Office [place] [address] Magdalena Peralta MD [facility] [place] [address] 03/01/2025 4:15 PM EDT Office Visit Dermatology at [place] [address] [facility] [place] [address] Marek Bonilla MD [address], [place] [address] documented as of this encounter Procedures Procedure [...] (Bezet) 448 ms MUSE SYSTEM Calculated P Hallowell 37 degrees MUSE SYSTEM Calculated R Hallow[place] 31 degrees MUSE SYSTEM Calculated T Hallow[place] 25 degrees MUSE SYSTEM INTERPRETATION Normal sinus rhythm Normal ECG No previous ECGs available Confirmed by MD Becca, Deangelo ([id number]) on 05/19/2016 5:23:33 PM MUSE SYSTEM 05/19/2016 11:4 3 AM EDT 05/19/2016 5:23 PM EDT Alirio Esparza MD ECG ORDERABLES MUSE SYSTEM documented in this encounter Visit Diagnoses Diagnosis Nonrheumatic aortic valve stenosis Aortic valve disorders documented in this encounter Care Teams Ornament Stitcher Relationship Specialty Start Date End Date Deborah Quiroga, PREFABRICATED HOUSES TRIMMER PCP - General Family Medicine 03/24/16 02/04/23 documented as of this encounter
--- OUTSIDE RECORDS SUMMARY | 2024-06-27 15:23 | XMS_ITS | Encounter Summary ---
Author Organization [facility] [address] Care Team Providers Care Pci Security Consultant Name Role Phone Deborah Quiroga APRN Primary Care Provider [phone] Encounter Details Date Type Department Care Team (Latest Contact Info) Description 07/10/2016 2:54 PM EST - 07/10/2016 11:59 PM EST Hospital [place] [address] Discharge Disposition: Home Social History Tobacco Use [...] 11/02/2024 12:00 PM EDT Appointment [place] [address] 11/02/2024 1:00 PM EDT Office [place] [address] Magdalena Peralta MD [facility] [place] [address] 03/01/2025 4:15 PM EDT Office Visit Dermatology at [place] [address] [facility] [place] [address] Marek Bonilla MD [address], [place] [address] documented as of this encounter Procedures Procedure Name Priority Date/Time Associated Diagnosis Comments BONE MARROW FINAL REPORT Routine 07/10/2016 3:43 PM EST documented in this encounter Results * Bone Marrow Final Report (07/10/2016 3:43 PM EST) Final Diagnosis [id number] ?Location: OPW The signing pathologist has (i) examined the relevant preparation(s) for the specimen(s) and (ii) rendered or confirmed the diagnosis(es). . ? Bone Marrow Final DIAGNOSIS BONE MARROW (PERIPHERAL SMEAR, ASPIRATE SMEAR, TOUCH PREP, CLOT SECTION, CORE BIOPSY); [OSR# [id number], COLLECTED 06/23/2016, 19 SLIDES]: ?? 1. ??Normocellular [...] clonal lymphoproliferative or myeloproliferative ? disorder (OSR# [id number]) ?Chromosome analysis on the marrow aspirate revealed a normal female karyotype; ?46,XX[25] ??(OSR# [id number]) Electronically signed by: ??Elian Guillen MD Verified: [...] 3/uL Band/Seg 0.52 x103/uL; Lymph 0.75 x103/uL; [place] 0.15 x103/uL; Eos 0.01%; Baso 0.01 x10 [...] plasma cells represent 3-4% of the cellularity [place] ? Polytypic plasma cell staining, high background Lambda ?Polytypic plasma cell staining, high background Block: ? B2 (Core biopsy 2) Fixative: ?? Formalin ANTIBODY: ?? RESULT/COMMENT CD3 ? Scattered small lymphocytes and lymphoid aggregates highlighted CD20 ?Few scattered small lymphocytes stain ( ?? <CD3 in aggregates) CD138 ? Scattered plasma cells represent 3-4% of the cellularity [place] ? Polytypic plasma cell staining, high background Lambda ?Polytypic plasma cell staining, high background Note: The immunoperoxidase stains reported above were developed and their performance characteristics determined by [facility] Clinical Laboratories. ??They have not been cleared [...] CONSULTATION CASE A - 19 slides labeled [id number], collection date 06/23/2016. [id number] Report to: [facility] Surgical Pathology Department [facility], [facility], [address]nd Floor [address] [place] [address] ??[id number] 07/13/2016 11:38 AM EST [facility] Consult Case 07/10/2016 3:43 PM EST 07/10/2016 3:43 PM EST Nitesh Pina Jr., MD PATHOLOGY/CYTOLOGY O RDERABLES [facility] [place] [address] documented in this encounter Visit Diagnoses Not on filedocumented in this encounter Care Teams Pci Security Consultant Relationship Specialty Start Date End Date Deborah Quiroga APRN PCP - General Family Medicine 03/24/16 02/04/23 documented as of this encounter
--- OUTSIDE RECORDS SUMMARY | 2024-06-27 15:23 | XMS_ITS | Encounter Summary ---
Author Organization [facility] Address [facility] [place] [address] Care Team Providers Care Phlebotomy Coordinator Name Role Phone Ashley Quirogan Cornelius ANURAG Primary Care Provider [phone] Encounter Details Date Type Department Care Team (Late st Contact Info) Description 07/13/2016 External Results Medical Records [place] [phone] Provider, Scanning Social History Tobacco Use Types [...] 11/02/2024 12:00 PM EDT Appointment Pulmonology at [place] [phone] 11/02/2024 1:00 PM EDT Office [place] [address] Magdalena Peralta MD [facility] RHEUMATOLOGY DEPT [place] [phone] 03/01/2025 4:15 PM EDT Office Visit Dermatology at [place] [address] [facility] [place] [address] Marek Bonilla MD [address], [place] [address] documented as of this encounter Procedures Procedure Name Priority Date/Time Associated Diagnosis Comments SURGICAL PATHOLOGY SCAN Routine 07/13/2016 documented in this encounter Results * Scan Doc: Surgical Pathology (07/13/2016) Nitesh Pina Jr., MD MEDIA MGR SCAN EXT O RDR/RSLT documented in this encounter Visit Diagnoses Not on filedocumented in this encounter Care Teams Phlebotomy Coordinator Relationship Specialty Start Date End Date Deborah Quiroga APRN PCP - General Family Medicine 03/24/16 02/04/23 documented as of this encounter
--- OUTSIDE RECORDS SUMMARY | 2024-06-27 15:23 | XMS_ITS | Encounter Summary ---
Author Organization [facility] [place] [address] Care Team Providers Care Structural Test Engineer Name Role Phone Deborah Quiroga ANURAG Primary Care Provider [phone] Encounter Details Date Type Department Care Team (Late st Contact Info) Description 05/22/2016 Orders Only Cardiology at [address] [address] Chele Randolph PA [facility] [place] [address] Aortic valve stenosis, unspecified etiology [...] 11/02/2024 12:00 PM EDT [place] [address] 11/02/2024 1:00 PM EDT [place] [address] Magdalena Peralta MD [facility] [place] [address] 03/01/2025 4:15 PM EDT Office Visit Dermatology at [place] [address] [facility] [place] [address] Marek Bonilla MD [address] [facility], [place] [address] documented as of this encounter Procedures Procedure Name Priority Date/Time Associated Diagnosis Comments CARDIAC CATHETERIZATION Routine 06/03/20 16 9:13 AM EDT Aortic valve stenosis, unspecified etiology documented in this encounter Results * CARDIAC CATHETERIZATION (06/03/2016 9:13 AM EDT) Anatomical Region Laterality Modality Other Narrative 06/03/2016 10:13 AM EDT ?[facility] ? Cardiac Catheterization/Intervention Report ? Patient Name: Purnima Thacker. ? Procedure Date: 06/03/2016 ? A #: [id number] ? Primary Physician: Nitesh Escobedo ? Case #: [id number] ? File Name: [id number] ? Catheterization Order Number: [id number] ? [facility] ? Final Report [place], [place] ? Patient Name: ? Purnima M. Kirstie ? ID#: ?[id number] ? : ?1955 ? Procedure Date: ? [...] no symptom, no angina (w/i 14 days). [place] ?Cardiovascular Society angina class was 0. This [...] right heart ?catheterization and oximetry. ? Nitesh Escoebdo M.D. ? Electronically Signed by: Nitesh Escobedo M.D. ? Report Finalized: 06/03/2016 ??10:04 ? Report Last Ammended: 09/21/2016 ??09:37 ? Procedure Nitesh Marroquin MD - 09/21/2016 [facility] Cardiac Catheterization/Intervention Report Patient Name: Purnima Thacker Procedure Date: 06/03/2016 A #: [id number] Primary Physician: Nitesh Escobedo Case #: [id number] File Name: [id number] Catheterization Order Number: [id number] [facility] FinalReport [place], [place] Patient Name: Purnima Thacker ID#:[id number] :1955 Procedure Date: June 03, 2016 Case [...] with: no symptom, no angina (w/i 14 days).[place] Cardiovascular Society angina class was 0. This [...] documented in this encounter Care Teams Structural Test Engineer Relationship Specialty Start Date End Date Deborah Quiroga, BUILDING CLEANING SUPERVISOR PCP - General Family Medicine 03/24/16 02/04/23 documented as of this encounter
--- OUTSIDE RECORDS SUMMARY | 2024-06-27 15:23 | XMS_ITS | Encounter Summary ---
Author Organization [facility] Address [facility] [place] [address] Care Team Providers Care Ship Worker Name Role Phone Junaid Deborah Shields APRN Primary Care Provider [phone] Encounter Details Date Type Department Care Team (Latest Contact Info) Description 06/19/2016 - 06/19/2016 11:59 PM EST Hospital Encounter Radiology Library at [facility] [place] [place] [phone] Nitesh Pina Jr., MD [facility] [place] [address] Pain Discharge Disposition: Home Social History Tobacco [...] 11/02/2024 12:00 PM EDT Appointment [place] [address] 11/02/2024 1:00 PM EDT Office [place] [address] Magdalena Peralta MD [facility] [place] [address] 03/01/2025 4:15 PM EDT Office Visit Dermatology at [address] [place] [address] Marek Bonilla MD [address] [facility], [place] [address] documented as of this encounter Procedures Procedure [...] Jr., MD IMG FILM LIBRARY ORD ERABLES [place], [place] documented in this encounter Visit Diagnoses Diagnosis Pain Generalized pain documented in this encounter Care Teams Ship Worker Relationship Specialty Start Date End Date Deborah Quiroga APRN PCP - General Family Medicine 03/24/16 02/04/23 documented as of this encounter
--- OUTSIDE RECORDS SUMMARY | 2024-06-27 15:23 | XMS_ITS | Encounter Summary ---
Author Organization [facility] Address [facility] [place] [address] Care Team Providers Care Assembler Dielectric Heater Name Role Phone Deborah Quiroga APRN Primary Care Provider [phone] Reason for Visit * Reason Comments Schedule Office Case * Consultation (Routine) - Closed Specialty Diagnoses / Procedures Referred By Contac t Referred To Contact Hematology and Oncology Diagnoses Leukopenia Neutropenia LEUKOPENIA W/NEUTROPENIA Procedures TC PEGFILGRASTIM, 6MG, INJECTION LEUKOPENIA W/NEUTROPENIA Alirio Esparza MD [facility] [place] [address] Mario Alberto Ramos Jr., MD [facility] DR [place] [address] Referral ID Status Reason Start Date Expiration Date V isits Requested Visits Authorized [id number] Closed Consult, Test & Treat 07/17/2016 07/17/2017 1 1 Encounter Details Date Type Department Care Team (Late st Contact Info) Description 06/09/2016 3:00 PM EST Office Visit Hematology [place] [address] Mario Alberto Ramos Jr., MD [facility] [place] [address] Cyclical neutropenia Social History Tobacco Use Types [...] 3:00 PM EST Hematology Outpatient Clinic [facility] Hematology Outpatient Consult Note CC: 60 [...] Unknown See Comment Flow Cytometry Report Unknown [id number] ... HematoPathology: Flow Cytometry DIAGNOSIS 1. No [...] 11/02/2024 12:00 PM EDT Appointment [place] [address] 11/02/2024 1:00 PM EDT Office [place] [address] Magdalena Peralta MD [facility] [place] [address] 03/01/2025 4:15 PM EDT Office Visit Dermatology at [place] [address] [place] [address] Marek Bonilla MD [address], [place] [address] documented as of this encounter Procedures Procedure [...] (06/09/2016 4:53 PM EST) Flow Cytometry Report [id number] ?Location: The signing pathologist has (i) examined [...] by the Clinical Flow Cytometry Laboratory at [facility]. It has not been cleared [...] high complexity clinical laboratory testing. SPECIMEN PROCESSING [id number] Cells for immunophenotypic analysis were derived from [...] MD PATHOLOGY/CYTOLOGY O RDERABLES Performing Organization Address [facility]/ZIP Co de Phone Number [facility] [place] [address] * Scan, Peripheral Blood (06/09/2016 4:53 PM EST) Pathologist [facility] Plat estimate Normal [facility] RBC Morphology Normal [facility] Blood specimen (specimen) 06/09/2016 4:53 PM EST 06/09/2016 5:00 PM EST Narrative Resulting Agency Comment Spec In Lab Mario Alberto Ramos Jr., MD HEMATOLOGY ORDERABLE S Performing Organization Address [facility] Co de Phone Number [facility] [place] [address] * (ABNORMAL) Differential, Automated (06/09/2016 4:53 PM EST) [facility] Neutrophil % 27.7 % [facility] [...] [facility] Eos % 0.6 % [facility] [...] MD HEMATOLOGY ORDERABLE S Performing Organization Address City/State/[facility] Co de Phone Number [facility] [place] [address] * (ABNORMAL) Hemogram (06/09/2016 4:53 PM EST) [...] Health/[facility]/[place] [address] * Immunophenotyping Flow Cytometry (06/09/2016 4:53 PM EST) Immunophenotyping Flow See Comment [facility] Comment: When completed by the Pathologist, the Flow Cytometry Report ([id number]) will display under the Pathology Results section within [facility]. Specimen of unknown material (specimen) 06/09/2016 4:53 PM EST 06/09/2016 5:00 PM EST Narrative Resulting Agency Comment Spec In Lab Mario Alberto Ramos Jr., MD HEMATOLOGY ORDERABLE S [facility] [place] [address] documented in this encounter Visit Diagnoses Diagnosis Cyclical neutropenia Cyclic neutropenia documented in this encounter Care Teams Assembler Dielectric Heater Relationship Specialty Start Date End Date Deborah Quiroga, METAL CHECKER PCP - General Family Medicine 03/24/16 02/04/23 documented as of this encounter
--- OUTSIDE RECORDS SUMMARY | 2024-06-27 15:23 | XMS_ITS | Encounter Summary ---
Author Organization [facility] Address [facility] [place] [address] Care Team Providers Care Wreath And Garland Maker Name Role Phone Deborah Quiroga ANURAG Primary Care Provider [phone] Encounter Details Date Type Department Care Team (Late st Contact Info) Description 07/31/2016 Orders Only Hematology [place] [address] Alexandrea [place] RN Neutropenia, unspecified type Social [...] 11/02/2024 12:00 PM EDT Appointment [place] [address] 11/02/2024 1:00 PM EDT Office [place] [address] Magdalena Peralta MD [facility] [place] [address] 03/01/2025 4:15 PM EDT Office Visit Dermatology at [address] [address] Marek Bonilla MD [address], [place] [address] documented as of this encounter Results * [...] type documented in this encounter Care Teams Wreath And Garland Maker Relationship Specialty Start Date End Date Deborah Quiroga, BRIDGE MANAGER PCP - General Family Medicine 03/24/16 02/04/23 documented as of this encounter
--- OUTSIDE RECORDS SUMMARY | 2024-06-27 15:23 | XMS_ITS | Encounter Summary ---
Author Organization [facility] [place] [address] Care Team Providers Care Physician/Internist Name Role Phone Eitan Danni OSBORN Primary Care Provider Encounter Details Date Type Department Care Team (Late st Contact Info) Description 01/23/2014 9:25 AM EDT - 01/23/2014 10:25 AM EDT Surgery Director [employer] [place] [address] Alan Jacobson MD [facility] [place] [address] CARDIAC CATHETERIZATION Social History Tobacco Use Types [...] by your doctor, do not take any lppe-hdw-tqknokh medicines or herbal preparations without first discussing this with your doctor or pharmacist. There is the possibility of side effect and interactions when these are combined. Follow up Care Who to Call with Questions or Problems If there are any questions or problems that you think might be related to your cardiac cath or angioplasty, contact the radio host tour production supervisor by calling [facility] at . documented in this encounter [...] PM EDT Appoint[place] [address] 11/02/2024 1:00 PM EDT Office [place] [address] Magdalena Peralta MD [facility] [place] [address] 03/01/2025 4:15 PM EDT Office Visit Dermatology at [place] [address] [facility] [place] [address] Marek Bonilla MD [address] [facility], [place] [address] documented as of this encounter Procedures Procedure Name Priority Date/Time Associated Diagnosis Comments ECHOCARDIOGRAM TRANSTHORACIC Routine 01/23/2014 3:17 PM EDT SOB (shortness of breath) documented in this encounter Results * Echocardiogram Transthoracic(Leb) (01/23/2014 3:17 PM EDT) Pathologist [facility] EF 50 HEART3 day Blinds SYSTEM Anatomical Region Laterality Modality Other 01/23/2014 Narrative 01/23/2014 4:35 PM EDT Procedure: ? Transthoracic Echocardiogram Patient: ? ANDREW ONESIMO M ?(Age): 1955(58) Med Rec#: ?[id number] ? Sex: ?F ? [place] [place] Ht / Wt: ??158(cm)/93(kg) Pt. Loc: ? Adult Floor ?BSA: ?2.02 Study Date: ?01/23/2014 ? Pt. Type: Inpatient Tape: ? Referring: Lee Kincaid ([id number]) Referring: ANNALISA Innersole Maker: Miguel Beverly Diagnosis:CPT Code(s): ??Echo Full (83779), ??Spectral Doppler (96770), Color Doppler (81723), Indication(s): ??Aortic stenosis Rhythm: Sinus HR ?BP [...] ? Mid-Inferior ?Hypokinetic ? Mid-Inferoseptal ?Hypokinetic ? Froid-Septal ? Hypokinetic ? Froid-Anterior ? Hypokinetic ? [place]roid-Lateral ?Hypokinetic ? [place]roid-Inferior ? Hypokinetic ? Froid-Tip ?Hypokinetic ? Chambers ?Value ?Units (Range) ? [...] 16:34:37 Images reviewed and interpretation verified [facility] Cardiac Ultrasound Laboratory Procedure Note Lee Kincaid MD - 01/23/2014 Procedure: Transthoracic Echocardiogram Patient: ANDREW Mejias (Age): 1955(58) Med Rec#: [id number] Sex: F [place] [facility] Ht / Wt: 158(cm)/93(kg) Pt. Loc: Adult Floor BSA: 2.02 Study Date: 01/23/2014 Pt. Type: Inpatient Tape: Referring: Lee Kincaid ([id number]) Referring: ANNALISA Innersole Maker: Miguel Beverly Diagnosis:CPT Code(s): Echo Full (68193), Spectral Doppler (25015), Color Doppler (82737), Indication(s): Aortic stenosis Rhythm: Sinus HR BP [...] Hypokinetic Mid-Posterolateral Hypokinetic Mid-Inferior Hypokinetic Mid-Inferoseptal Hypokinetic Froid-Septal Hypokinetic Froid-Anterior Hypokinetic Froid-Lateral Hypokinetic Froid-Inferior Hypokinetic Froid-Tip Hypokinetic Chambers Value Units (Range) IVSd 2D [...] 16:34:37 Images reviewed and interpretation verified [facility] Cardiac Ultrasound Laboratory Lee Kincaid MD [...] RN) documented in this encounter Care Teams Physician/Internist Relationship Specialty Start Date End Date Danni Laird APRN [address] [place] [address] PCP - General 01/23/14 11/11/14 documented as of this encounter
--- OUTSIDE RECORDS SUMMARY | 2024-06-27 15:23 | XMS_ITS | Encounter Summary ---
Author Organization [facility] [place] [address] Care Team Providers Care Barn Hand Name Role Phone Junaid, Deborah Shields APRN Primary Care Provider [phone] Encounter Details Date Type Department Care Team (Late st Contact Info) Description 05/19/2016 10:00 AM EDT Office [place] [phone] Alirio Esparza MD Nonrheumatic aortic valve stenosis [...] 11/02/2024 12:00 PM EDT [place] [address] 11/02/2024 1:00 PM EDT [place] [address] Magdalena Peralta MD [facility] [place] [address] 03/01/2025 4:15 PM EDT Office Visit Dermatology at [address] [place] [address] Marek Bonilla MD [address], [place] [address] documented as of this encounter Results * [...] (Bezet) 448 ms MUSE SYSTEM Calculated P [place] 37 degrees MUSE SYSTEM Calculated R [place] 31 degrees MUSE SYSTEM Calculated T [place] 25 degrees MUSE SYSTEM INTERPRETATION Normal sinus rhythm Normal ECG No previous ECGs available Confirmed by MD Becca, Deangelo ([id number]) on 05/19/2016 5:23:33 PM MUSE SYSTEM 05/19/2016 11:4 3 AM EDT 05/19/2016 5:23 PM EDT Alirio Esparza MD ECG ORDERABLES MUSE SYSTEM * Basic Metabolic Panel (non-fasting) (05/19/2016 11:32 AM EDT) Glucose 86 65 - 199 mg/dL [facility] Comment:Diabetes: >=200 mg/d L plus symptoms Blood Urea Nitrogen 13 8 - 18 mg/dL [facility] Creatinine 0.95 0.70 - 1.20 mg/dL [facility] Comment: Please note that the pediatric reference intervals supplied above were not validated at [facility] Results from pediatric patients should be interpreted [...] the following links into your internet browser. [email or web address] Blood specimen (specimen) 05/19/2016 11:32 AM EDT 05/19/2016 11:41 AM EDT Narrative Resulting Agency Comment Spec In Lab Alirio Esparza MD CHEMISTRY ORDERABLE S [facility] [place] [address] documented in this encounter Visit Diagnoses Diagnosis Nonrheumatic aortic valve stenosis Aortic valve disorders Nonrheumatic aortic valve stenosis Aortic valve disorders documented in this encounter Care Teams Barn Hand Relationship Specialty Start Date End Date Deborah Quiroga APRN PCP - General Family Medicine 03/24/16 02/04/23 documented as of this encounter
--- OUTSIDE RECORDS SUMMARY | 2024-06-27 15:23 | XMS_ITS | Encounter Summary ---
Author Organization [facility] [place] [address] Care Team Providers Care Pug Mill Operator Helper Name Role Phone JonathanDanni Leija ANURAG Primary Care Provider [phone] Encounter Details Date Type Department Care Team (Late st Contact Info) Description 01/23/2014 Orders Only Cardiology at [address] [address] Lee Kincaid MD [facility] [place] [address] SOB (shortness of breath) (Primary Dx) Social [...] 11/02/2024 12:00 PM EDT Appoint[place] [address] 11/02/2024 1:00 PM EDT [place] [address] Magdalena Peralta MD [facility] [place] [address] 03/01/2025 4:15 PM EDT Office Visit Dermatology at [place] [address] [place] [address] Marek Bonilla MD [address], [place] [address] documented as of this encounter Results * Echocardiogram Transthoracic(Leb) (01/23/2014 3:17 PM EDT) EF 50 HEARTPerfectore SYSTEM Anatomical Region Laterality Modality Other 01/23/2014 Narrative 01/23/2014 4:35 PM EDT Procedure: ? Transthoracic Echocardiogram Patient: ? KIRSTIE LOBOOUISE M ?(Age): 1955(58) Med Rec#: ?[id number] ? Sex: ?F ? Site Loc: ?[facility] ? Ht / Wt: ??158(cm)/93(kg) Pt. Loc: ? Adult Floor ?BSA: ?2.02 Study Date: ?01/23/2014 ? Pt. Type: Inpatient Tape: ? Referring: Lee Kincaid ([id number]) Referring: ANNALISA Biomedical Engineering Director: Miguel Beverly Diagnosis:CPT Code(s): ??Echo Full (36453), ??Spectral Doppler (22973), Color Doppler (97851), Indication(s): ??Aortic stenosis Rhythm: Sinus HR ?BP [...] ? Mid-Inferior ?Hypokinetic ? Mid-Inferoseptal ?Hypokinetic ? [place]-Septal ? Hypokinetic ? [place]-Anterior ? Hypokinetic ? [place]-Lateral ?Hypokinetic ? [place]-Inferior ? Hypokinetic ? [place]-Tip ?Hypokinetic ? Chambers ?Value ?Units (Range) ? [...] Images reviewed and interpretation verified [facility] Cardiac Ultrasound Laboratory Procedure Note Lee Kincaid MD - 01/23/2014 Procedure: Transthoracic Echocardiogram Patient: KIRSTIE Mejias (Age): 1955(58) Med Rec#: [id number] Sex: F Site Loc: [facility] Ht / Wt: 158(cm)/93(kg) Pt. Loc: Adult Floor BSA: 2.02 Study Date: 01/23/2014 Pt. Type: Inpatient Tape: Referring: Lee Kincaid ([id number]) Referring: ANNALISA Biomedical Engineering Director: Miguel Beverly Diagnosis:CPT Code(s): Echo Full (77195), Spectral Doppler (54140), Color Doppler (71394), Indication(s): Aortic stenosis Rhythm: Sinus HR BP [...] Hypokinetic Mid-Posterolateral Hypokinetic Mid-Inferior Hypokinetic Mid-Inferoseptal Hypokinetic [place]-Septal Hypokinetic [place]-Anterior Hypokinetic [place]-Lateral Hypokinetic [place]-Inferior Hypokinetic [place]-Tip Hypokinetic Chambers Value Units (Range) IVSd 2D [...] Images reviewed and interpretation verified [facility] Cardiac Ultrasound Laboratory Lee Kincaid MD ECHO ORDERABLES documented in this encounter Visit Diagnoses Diagnosis SOB (shortness of breath)- Primary Shortness of breath documented in this encounter Care Teams Pug Mill Operator Helper Relationship Specialty Start Date End Date Danni Laird APRN [address] [place] [address] PCP - General 6/24/14 4/12/15 documented as of this encounter
--- OUTSIDE RECORDS SUMMARY | 2024-06-27 15:23 | XMS_ITS | Encounter Summary ---
Author Organization [facility] Address [facility] [place] [address] Care Team Providers Care Surgical Garment Fitter Name Role Phone Junaid Deborah Shields APRN Primary Care Provider [phone] Reason for Visit * Auth/Cert Specialty Diagnoses / Procedures Referred By Crispin t Referred To Contact Diagnoses AVS Procedures CARDIAC CATHETERIZATION Referral ID Status Reason Start Date Expiration Date Visits Re quested Visits Authorized [id number] 1 1 Encounter Details Date Type Department Care Team (Late st Contact Info) Description 06/03/2016 7:30 AM EDT - 06/03/2016 8:30 AM EDT Surgery [place] [phone] Mario Alberto Escobedo MD [facility] [place] [address] CARDIAC CATHETERIZATION Social History Tobacco Use Types [...] by your doctor, do not take any xmob-qwm-rlxibzr medicinesor herbal preparations without first discussing this with your doctor or pharmacist. There is the possibility of side effects and interactions when these are combined. Follow Up Care Who to call with questions or problems If there are any questions or problems that you think might be related to your cardiac cath or angioplasty, contact the frame nailer air conditioning specialist by calling [facility] at . * Patient Instructions* Felicia Corrigan - 06/03/2016 9:33 AM EDT Cardiology Instructions Call your doctor if: Chest pain, dyspnea, pain or swelling in legs occurs. If you have non-emergent questions between now and the time of your follow up appointments: -During 8am-5pm Wednesday through Wednesday call [phone] to speak with a nurse in the cardiology clinic -All other times call [phone] and ask to speak to the fruit harvest machine operator air conditioning specialist. MEDICATIONS - restart your spironolactone, discontinue [...] Appointments: Primary care provider: Cardiology: Deborah Hahn, SECURITIES AND REAL ESTATE DIRECTOR [phone] Follow up as planned or as needed. Dr. Esparza [phone] Other follow-up appointment: Hematology - Dr. Mario [...] 11/02/2024 12:00 PM EDT Appointment [place] [address] 11/02/2024 1:00 PM EDT Office [place] [address] Magdalena Peralta MD [facility] [place] [address] 03/01/2025 4:15 PM EDT Office Visit Dermatology at [place] [address] [place] [address] Marek Bonilla MD [address], [place] [address] documented as of this encounter Procedures Procedure [...] Escobedo MD CHEMISTRY ORDERABLES Performing Organization Address City/[facility]/ZIP Co de Phone Number [facility] [place] [address] * Methylmalonic acid, serum (06/03/2016 11:45 AM EDT) Methylmalonic Acid (NOVEMBER) 0.21 <=0.40 nmol/mL [facility] Comment: Test Performed by: [address] [address] [employer] Faculty Member: Raymond Chaudhry II, M.D., Ph.D. Blood specimen (specimen) 06/03/2016 11:45 AM EDT 06/03/2016 1:57 PM EDT Narrative Resulting Agency Comment Spec In Lab Mario Alberto Escobedo MD LAB SEND OUT ORDERAB LES Performing Organization Address City/[facility]/ZIP Co de Phone Number [facility] [place] [address] * Granulocyte Antibody (06/03/2016 11:45 AM EDT) Pathologist [facility] Granulocyte Ab (MAY) Negative Not Applicable [facility] Comment: ADDITIONAL INFORMATION Method: Immunofluorescent Assay Performing Laboratory CLIA# [id number] This test was developed and its performance characteristics determined by [facility] in a manner consistent with CLIA requirements. This test has not been cleared or approved by the U.S. Food and Drug Administration. Test Performed by: [place] [address] [employer] Faculty Member: Raymond Chaudhry II, M.D., Ph.D. Blood specimen (specimen) 06/03/2016 11:45 AM EDT 06/03/2016 1:57 PM EDT Narrative Resulting Agency Comment Spec In Lab Mario Alberto Escobedo MD LAB SEND OUT ORDERAB LES Performing Organization Address City/[facility]/ZIP Co de Phone Number [facility] [place] [address] * TSH (06/03/2016 11:45 AM EDT) Pathologist [facility] Thyroid Stimulating Hormone 2.18 0.27 - 4.20 mcIU/mL [facility] Blood specimen (specimen) 06/03/2016 11:45 AM EDT 06/03/2016 12:11 PM EDT Narrative Resulting Agency Comment Spec In Lab Mario Alberto Escobedo MD CHEMISTRY ORDERABLES Performing Organization Address City/[facility]/ZIP Co de Phone Number [facility] [place] [address] * Homocysteine Total, Plasma (06/03/2016 11:45 AM EDT) Homocystine 9 <=15 mcmol/L [facility] Blood specimen (specimen) 06/03/2016 11:45 AM EDT 06/03/2016 12:11 PM EDT Narrative Resulting Agency Comment Spec In Lab Mario Alberto Escobedo MD CHEMISTRY ORDERABLES Performing Organization Address City/[facility]/ZIP Co de Phone Number [facility] [place] [address] * Folate, serum (06/03/2016 11:45 AM EDT) Folate >20.0 4.8 - 24.2 ng/mL [facility] Blood specimen (specimen) 06/03/2016 11:45 AM EDT 06/03/2016 12:04 PM EDT Narrative Resulting Agency Comment Spec In Lab Mario Alberto Escobedo MD CHEMISTRY ORDERABLES Performing Organization Address [facility] Co de Phone Number [facility] [place] [address] * (ABNORMAL) Sedimentation rate (06/03/2016 11:45 AM EDT) Sedimentation Rate Automated 41(H) 0 - 20 mm/hr [facility] Blood specimen (specimen) 06/03/2016 11:45 AM EDT 06/03/2016 12:04 PM EDT Narrative Resulting Agency Comment Spec In Lab Mario Alberto Escobedo MD HEMATOLOGY ORDERABLE S Performing Organization Address City/[facility]/ZIP Co de Phone Number [facility] [place] [address] * Lactate Dehydrogenase (06/03/2016 11:45 AM EDT) Lactate Dehydrogenase 164 110 - 220 unit/L [facility] Blood specimen (specimen) 06/03/2016 11:45 AM EDT 06/03/2016 12:11 PM EDT Narrative Resulting Agency Comment Spec In Lab Mario Alberto Escobedo MD CHEMISTRY ORDERABLES Performing Organization Address City/[facility]/ZIP Co de Phone Number [facility] [place] [address] * Comprehensive metabolic panel (non-fasting) (06/03/2016 11:45 [...] the following links into your internet browser. [email or web address] [email or web address] Blood specimen (specimen) 06/03/2016 11:45 AM EDT 06/03/2016 12:11 PM EDT Narrative Resulting Agency Comment Spec In Lab Mario Alberto Escobedo MD CHEMISTRY ORDERABLES Performing Organization Address City/State/[facility] Co de Phone Number [facility] [address] documented in this encounter Visit Diagnoses Diagnosis [...] Hernandez) documented in this encounter Care Teams Surgical Garment Fitter Relationship Specialty Start Date End Date Deborah Quiroga, SECURITIES AND REAL ESTATE DIRECTOR PCP - General Family Medicine 03/24/16 02/04/23 documented as of this encounter
--- OUTSIDE RECORDS SUMMARY | 2024-06-27 15:23 | XMS_ITS | Encounter Summary ---
Author Organization [facility] [place] [address] Care Team Providers Care Meat Blender Name Role Phone Mitchell Wilkes MD Primary Care Provider [phone] Encounter Details Date Type Department Care Team (Late st Contact Info) Description 01/19/2014 Orders Only Cardiology at [address] [address] Chele Randolph PA [facility] [place] [address] Cardiomyopathy (Primary Dx) Social History [...] 11/02/2024 12:00 PM EDT Appointment [place] [address] 11/02/2024 1:00 PM EDT Office [place] [address] Magdalena Peralta MD [facility] [place] [address] 03/01/2025 4:15 PM EDT Office Visit Dermatology at [place] [address] [place] [address] Marek Bonilla MD [address], [place] [address] documented as of this encounter Procedures Procedure [...] cardiomyopathies documented in this encounter Care Teams Meat Blender Relationship Specialty Start Date End Date Mitchell Wilkes MD [facility] PCP - General 06/24/10 01/19/14 documented as of this encounter
--- OUTSIDE RECORDS SUMMARY | 2024-06-27 15:24 | XMS_ITS | Encounter Summary ---
[place] [address] Care Team Providers Care Rn Procedures Name Role Phone Mitchell Wilkes MD Primary Care Provider [phone] Reason for Visit * Reason Onset Date Comments Other 01/18/2014 Encounter Details Date Type Department Care Team (Late st Contact Info) Description 01/18/2014 Telephone Cardiology at [address] [address] Jesusita Garces Other Social History [...] 11/02/2024 12:00 PM EDT Appointment [place] [address] 11/02/2024 1:00 PM EDT Office [place] [address] Magdalena Peralta MD [facility] [place] [address] 03/01/2025 4:15 PM EDT Office Visit Dermatology at [place] [address] [place] [address] Marek Bonilla MD [address], [place] [address] documented as of this encounter Visit Diagnoses Not on filedocumented in this encounter Care Teams Rn Procedures Relationship Specialty Start Date End Date Mitchell Wilkes MD [facility] PCP - General 06/24/10 01/19/14 documented as of this encounter
== END 2024-07-01 23:59 | disposition home or self-care (01) ==
LOC: CR 15:14
PROVIDERS: PCP Family Medicine; Visit Provider Internal Medicine Cardiovascular Disease
DX: R69 Illness, unspecified (principal)

== ENCOUNTER 2024-07-15 12:25 | Outpatient (REF) | payer MEDICARE, BC, SELFPAY ==
--- OUTSIDE RECORDS SUMMARY | 2024-07-15 12:28 | XMS_ITS | Encounter Summary ---
Author Organization [facility] Address [address] [place] [address] Care Team Providers Care Barber Instructor Name Role Phone Unavailable Primary Care Provider Unavailabl e Encounter Details Date Type Department Care Team (Late st Contact Info) Description 07/08/2010 10:55 EST - 07/08/2010 10:56 EST Hospital Encounter [facility] Other [address] [place] [address] Ashley Chavez, WILLIAM [address] [place] [address] Discharge Disposition: Home or Self Care Social [...]
--- OUTSIDE RECORDS SUMMARY | 2024-07-15 12:28 | XMS_ITS | Encounter Summary ---
Author Organization [facility] Address [address] [place] [address] Care Team Providers Care Pail Tester Name Role Phone Unavailable Primary Care Provider Unavailabl e Encounter Details Date Type Department Care Team (Late st Contact Info) Description 07/08/2010 Results Only [facility] Non-Invasive Cardiology - [facility] [address] [place], [place] [address] Ashley Chavez, WILLIAM [address] [place] [address] Social History Tobacco Use Types Packs/Day Years [...] ? PURNIMA THACKER ? Accession #: ? [id number] ? : ? 1955 (Age: 54) ??F [...] ORDERABLES Final Res ult PAUL ARELLANO [address] [place] [address] documented in this encounter Visit Diagnoses Not on filedocumented in this encounter
--- OUTSIDE RECORDS SUMMARY | 2024-07-15 12:28 | XMS_ITS | Encounter Summary ---
Author Organization [facility] [place] [address] Care Team Providers Care Grant Specialist Name Role Phone Magdalena Acosta MD Primary Care Provider [phone] Encounter Details Date Type Department Care Team [...] 11/02/2024 12:00 PM EDT Appointment [place] [address] 11/02/2024 1:00 PM EDT Office Visit [place] [address] Magdalena Peralta MD [facility] [place] [address] 03/01/2025 4:15 PM EDT Office Visit Dermatology at [place] [address] [place] [address] Marek Bonilla MD [address], [place] [address] documented as of this encounter Visit Diagnoses Not on filedocumented in this encounter Care Teams Grant Specialist Relationship Specialty Start Date End Date Magdalena Acosta MD [address] [place] [address] PCP - General Family Medicine 02/05/23 documented as of this encounter
--- OUTSIDE RECORDS SUMMARY | 2024-07-15 12:28 | XMS_ITS | Encounter Summary ---
Author Organization [facility] Address [address] [place] [address] Care Team Providers Care Machine Operator Farmworker Name Role Phone Scott Ashley WILLIAM Primary Care Provider [phone] Encounter Details Date Type Department Care Team (Late st Contact Info) Description 11/10/2013 Results Only [facility] [phone] Jeni Laird, DISHROOM ATTENDANT [address] [place], [place] [id number] Social History Tobacco Use Types Packs/Day Years [...] ? PURNIMA THACKER ? Accession #: ? [id number] : ? 1955 (Age: 58) ??F ?Collect Date: ? 11/10/2013 Location: ? [facility] ? Receive Date: ? 11/14/2013 Provider: ?JENI LAIRD DISHROOM ATTENDANT Copy to: ? Specimen/Source: ?Pap Test, [employer], [...] PAUL ARELLANO 11/10/2013 11/14/2013 us Jeni Laird DISHROOM ATTENDANT PATHOLOGY ORDERABLES Magy morgan Result PAUL ARELLANO [address] [place] [address] documented in this encounter Visit Diagnoses Not on filedocumented in this encounter Care Teams Machine Operator Farmworker Relationship Specialty Start Date End Date Ashley Chavez ARNP [address] [place] [address] PCP - General 07/11/10 documented as of this encounter
--- OUTSIDE RECORDS SUMMARY | 2024-07-15 12:28 | XMS_ITS | Encounter Summary ---
Author Organization [facility] Address [address] [place] [address] Care Team Providers Care Personnel Counselor Name Role Phone Ashley Chavez Primary Care Provider [phone] Encounter Details Date Type Department Care Team (Late st Contact Info) Description 10/30/2022 Lab Requisition [facility] Pathology & Laboratory Medicine - [address] [id number] Outr Resulting Lab, Provider Social History Tobacco [...] Stranded) <12.3 <30.0 IU/mL 11/03/2022 13:08 EDT [facility] Comment: ? Negative: ??<30.0 IU/mL ? Borderline Positive: ??30.0 - 75.0 IU/mL ? Positive: ??>75.0 IU/mL Results were obtained with the judge.meVA QUANTA Lite dsDNA SC DOMO assay on the Intio DSX. Blood VENOUS BLOOD / Unknown 10/29/2022 14:00 EDT 10/30/2022 19:27 EDT Provider Outr Resulting Lab IMMUNOLOGY AND SEROL OGY ORDERABLES Final Result Performing Organization Address [facility] de Phone Number [facility] [address] [place] [address] * SM (MORENO) ANTIBODY (10/29/2022 14:00 EDT) SM ([place]no) Antibody 18.5 <20.0 Units 11/03/2022 14:26 EDT [facility] Comment: ? Negative: <20.0 [...] OGY ORDERABLES Final Result Performing Organization Address [facility] de Phone Number [facility] [address] [place] [address] documented in this encounter Visit Diagnoses Not on filedocumented in this encounter Care Teams Personnel Counselor Relationship Specialty Start Date End Date Ashley Chavez ARNP [address] [place] [address] PCP - General 07/11/10 documented as of this encounter
--- OUTSIDE RECORDS SUMMARY | 2024-07-15 12:28 | XMS_ITS | Encounter Summary ---
Author Organization [facility] [place] [address] Care Team Providers Care Field Service Tech Name Role Phone Magdalena Acosta MD Primary Care Provider [phone] Encounter Details Date Type Department Care Team [...] 12:00 PM EDT Appointment [place] [address] 11/02/2024 1:00 PM EDT Office Visit [place] [address] Magdalena Peralta MD [facility] [place] [address] 03/01/2025 4:15 PM EDT Office Visit Dermatology at [place] [address] [place] [address] Marek Bonilla MD [address] [place] [address] documented as of this encounter Visit Diagnoses Not on filedocumented in this encounter Care Teams Field Service Tech Relationship Specialty Start Date End Date Magdalena Acosta MD [address] [place] [address] PCP - General Family Medicine 02/05/23 documented as of this encounter
--- OUTSIDE RECORDS SUMMARY | 2024-07-15 12:28 | XMS_ITS | Encounter Summary ---
Author Organization [facility] Address [address] [place] [address] Care Team Providers Care Purchasing Associate Name Role Phone Ashley Chavez Primary Care Provider [phone] Encounter Details Date Type Department Care Team (Late st Contact Info) Description 03/21/2024 Lab Requisition [facility] Pathology & Laboratory Medicine - [address] [id number] Outr Resulting Lab, Provider Social History Tobacco [...] Result Performing Organization Address [facility]/State/ZIP Co de Phone Number [facility] [address] [place] [address] documented in this encounter Visit Diagnoses Not on filedocumented in this encounter Care Teams Purchasing Associate Relationship Specialty Start Date End Date Ashley Chavez ARNP [address] [place] [address] PCP - General 07/11/10 documented as of this encounter
--- OUTSIDE RECORDS SUMMARY | 2024-07-15 12:28 | XMS_ITS | Clinical Summary ---
Author Organization [facility] Address [address] [place] [address] Care Team Providers Care Lining Inserter Name Role Phone Ashley Chavez Primary Care Provider [phone] Social History Tobacco Use Types Packs/Day Years [...] 2030 Insurance MEDICARE [employer]BS [place] Care Teams Lining Inserter Relationship Specialty Start Date End Date Ashley Chavez ARNP [address] [place], [place] [id number] PCP - General 07/11/10
--- OUTSIDE RECORDS SUMMARY | 2024-07-15 12:28 | XMS_ITS | Encounter Summary ---
Author Organization [facility] Address [address] [place] [address] Care Team Providers Care Cotton Program Technician Name Role Phone Scott Ashley WILLIAM Primary Care Provider [phone] Encounter Details Date Type Department Care Team (Late st Contact Info) Description 03/22/2024 Lab Requisition [facility] Pathology & Laboratory Medicine - [address] [address] Consuelo Guerrero, DO [address] [place], [place] [id number] Diaphragmatic hernia without obstruction or gangrene; Anemia, [...] management options, if applicable. 03/24/2024 10:36 [facility] Final Diagnosis A. [...] Luis Torres 03/22/2024 9:36 03/24/2024 10:36 EDT [facility] Resident/Estuardo w: Luis Felipe Bragg DO 03/24/2024 10:36 T [facility] Performing Lab [facility] 10:36 T [facility] Scanned Images 03/24/2024 10:36 T [facility] Tissue POLYP OF COLON [...] Guerrero DO PATHOLOGY ORDERABLES Final Re sult [facility] [address] [place] [address] documented in this encounter Visit Diagnoses Diagnosis Diaphragmatic hernia without obstruction or gangrene Diaphragmatic hernia without mention of obstruction or gangrene Anemia, unspecified documented in this encounter Care Teams Cotton Program Technician Relationship Specialty Start Date End Date Ashley Chavez ARNP [address] [place] [address] PCP - General 07/11/10 documented as of this encounter
--- OUTSIDE RECORDS SUMMARY | 2024-07-15 12:28 | XMS_ITS | Encounter Summary ---
Author Organization [facility] Address [address] [place] [address] Care Team Providers Care Multiskill Operator Name Role Phone Ashley Chavez Primary Care Provider [phone] Encounter Details Date Type Department Care Team (Late st Contact Info) Description 01/07/2023 Lab Requisition [facility] Pathology & Laboratory Medicine - [address] [address] Outr Resulting Lab, Provider Social History Tobacco [...] 56.2 55.8 - 66.1 % 01/08/2023 11:28 [facility] Albumin g/dL 3.9 3.6 - 5.2 g/dL 01/08/2023 11:28 [facility] Alpha-1 % 5.1(H) 2.9 - 4.9 % 01/08/2023 11:28 [facility] Alpha-1 g/dL 0.40 0.15 - 0.40 g/dL 01/08/2023 11:28 [facility] Alpha-2 % 7.0(L) 7.1 - 11.8 % 01/08/2023 11:28 [facility] Alpha-2 g/dL 0.50 0.50 - 1.00 g/dL 01/08/2023 11:28 [facility] Beta % 12.7 8.4 - 13.1 % 01/08/2023 11:28 [facility] Beta g/dL 0.90 0.60 - 1.20 g/dL 01/08/2023 11:28 [facility] Gamma % 19.0(H) 11.1 - 18.8 % 01/08/2023 11:28 [facility] Gamma g/dL 1.30 0.60 - 1.60 g/dL 01/08/2023 11:28 [facility] SPEP Comment No apparent monoclonal protein seen on serum electrophoresis 01/08/2023 11:28 [facility] Comment:See scanned/suppleme ntary report. Total Protein 6.9 6.3 - 8.2 g/dL 01/08/2023 11:28 [facility] Blood VENOUS BLOOD / Unknown 01/06/2023 14:40 EDT 01/07/2023 17:37 EDT us Provider Outr Resulting Lab CHEMISTRY & BLOOD GA S ORDERABLES Final Result Performing Organization Address [facility] de Phone Number [facility] [address] [place] [address] * PROTEIN, TOTAL (01/06/2023 14:40 EDT) Blood VENOUS BLOOD / Unknown 01/06/2023 14:40 EDT 01/07/2023 17:37 EDT us Provider Outr Resulting Lab CHEMISTRY & BLOOD GA S ORDERABLES Final Result Performing Organization Address [facility] de Phone Number [facility] [address] [place] [address] * (ABNORMAL) EXTRACTABLE NUCLEAR ANTIGEN PANEL (01/06/2023 14:40 EDT) SSA Antibody 1.3 <20.0 Units 01/08/2023 15:42 EDT [facility] Comment: ? Negative: <20.0 Units ? Weak Positive: 20.0 - 39.9 Units ? Moderate Positive: 40.0 - 80.0 Units ? Strong Positive: >80.0 Units Results were obtained with the [employer] QUANTA Lite SS-A DOMO. ??SS-A values obtained with different manufacturers' assay methods may not be used interchangeably. ??The magnitude of the reported IgG levels cannot be correlated to an endpoint titer. SSB Antibody 1.5 <20.0 Units 01/08/2023 15:42 EDT [facility] Comment: ? Negative: <20.0 Units ? Weak Positive: 20.0 - 39.9 Units ? Moderate Positive: 40.0 - 80.0 Units ? Strong Positive: >80.0 Units Results were obtained with the [employer] QUANTA Lite SS-B DOMO. ??SS-B values obtained with different manufacturers' assay methods may not be used interchangeably. ??The magnitude of the reported IgG levels cannot be correlated to an endpoint titer. SM (More[place]) Antibody 15.3 <20.0 Units 01/08/2023 15:42 EDT [facility] Comment: ? Negative: <20.0 Units ? Weak Positive: 20.0 - 39.9 Units ? Moderate Positive: 40.0 - 80.0 Units ? Strong Positive: >80.0 Units Results were obtained with the [employer] QUANTA Lite Sm DOMO. ??Sm values obtained with different manufacturers' assay methods may not be used interchangeably. ??The magnitude of the reported IgG levels cannot be correlated to an endpoint titer. FENCE INSTALLER FOREMAN Antibody 149.1(H) <20.0 Units 01/08/2023 15:42 [facility] Comment: ? Negative: <20.0 Units ? Weak Positive: 20.0 - 39.9 Units ? Moderate Positive: 40.0 - 80.0 Units ? Strong Positive: >80.0 Units Results were obtained with the [employer] Quanta Lite FENCE INSTALLER FOREMAN DOMO. FENCE INSTALLER FOREMAN values obtained with different fruit farmworker's assay methods may not be used interchangeaby. ??The magnitude of the reported IgG levels cannot be be correlated to an endpoint titer. A positive result in the Quanta Lite FENCE INSTALLER FOREMAN DOMO indicates the presence of antibodies reactive with the FENCE INSTALLER FOREMAN/Sm complex but cannot distinguish between anti-Sm and anti-FENCE INSTALLER FOREMAN activity. Blood VENOUS BLOOD / Unknown 01/06/2023 14:40 EDT 01/07/2023 17:37 EDT us Provider Outr Resulting Lab IMMUNOLOGY AND SEROL OGY ORDERABLES Final Result [facility] [address] [place] [address] * (ABNORMAL) ANTI NUCLEAR AB (FRANCISCO), IFA (01/06/2023 14:40 EDT) FRANCISCO Interpretation Positive(A) Negative 01/08/2023 15:22 EDT [facility] Comment: Result is equal to or greater than 1:5120. For titers greater than or equal to 1:160 (except the centromere, nucleolar, and dense fine speckled patterns) it is recommended that specific, follow-up autoantibody testing (such as for dsDNA and Extractable Nuclear Antigens) be performed on all diffuse and/or speckled patterns. FRANCISCO Titer and Pattern 1 1:5120 Speckled 01/08/2023 15:22 EDT [facility] Blood VENOUS BLOOD / Unknown 01/06/2023 14:40 EDT 01/07/2023 17:37 EDT Narrative [facility] - 01/08/2023 15:22 EDT Results were obtained with the [employer] NOVA Lite HEp-2 FRANCISCO Kit by indirect immunofluorescence. us Provider Outr Resulting Lab IMMUNOLOGY AND SEROL OGY ORDERABLES Final Result [facility] [address] [place] [address] documented in this encounter Visit Diagnoses Not on filedocumented in this encounter Care Teams Multiskill Operator Relationship Specialty Start Date End Date Ashley Chavez ARNP [address] [place] [address] PCP - General 07/11/10 documented as of this encounter
--- OUTSIDE RECORDS SUMMARY | 2024-07-15 12:28 | XMS_ITS | Clinical Summary ---
Author Organization [facility] Address [facility] [place] [address] Care Team Providers Care Computer Forensics Examiner Name Role Phone Magdalena Acosta MD Primary Care Provider [phone] Allergies No known active allergies Medications Medication [...] Mild coronary artery disease by [facility] 11/09/2022 Heart failure with reduced e [...] EST Office Visit Hematology [place] [address] Markel Borjas MD Chronic idiopathic neutropenia; Anemia, unspecified type 06/23/2024 Travel 06/16/2024 Travel 06/05/2024 2:00 PM EST - 06/05/2024 3:00 PM EST Surgery [facility] [place] [phone] Markel Borjas MD (OSC MSURG) BONE MARROW BIOPSY AND ASPIRATION; DIAGNOSTIC (WRVU 1.44) 06/05/2024 1:04 PM EST - 06/05/2024 3:08 PM EST Hospital Encounter Outpatient [place] [address] Markel Borjas MD Discharge Disposition: Home 06/01/2024 10:00 AM EDT Office [place] [address] Magdalena Peralta MD Mixed connective tissue disease 05/31/2024 Travel 05/24/2024 Refill Internal Medicine at [place] [phone] Magdalena Peralta MD 05/18/2024 Interpretation Only [address] [phone] Magdalena Acosta MD 05/18/2024 Interpretation Only [address] [address] Magdalena Acosta MD 05/12/2024 10:00 AM EDT Office Visit Hematology [place] [phone] Markel Borjas MD Chronic idiopathic neutropenia 05/12/2024 9:00 AM EDT Laboratory Appointment Lab at [facility] Hematology Oncology [address] [place] [phone] S/P TAVR (transcatheter aortic valve replacement); Chronic [...] 11/02/2024 12:00 PM EDT Appointment [place] [address] 11/02/2024 1:00 PM EDT Office [place] [address] Magdalena Peralta MD [facility] [place] [address] 03/01/2025 4:15 PM EDT Office Visit Dermatology at [place] [address] [place] [phone] Marek Bonilla MD [address], [place] [address] Health Maintenance Due Date Last Done Comments [...] 05/18/2024, 06/05/2021 Medical Devices Implanted Type Area Clearance Cutter Device Identifier Shelf Expiration Date Model / Serial / Lot Valve,Aor,Pericar d,Magna,25mm ([id number]) - [id number] Implanted:Qty: 1 on 09/21/2016 by Alirio Esparza MD at [facility] IMPLANTS N/A: Heart DO NOT USE [employer] - [id number] 06/02/2020 [id number] / / [id number] Cable,Blnt,Ss,38i n ([id number]) - [id number] Implanted:Qty: 4 on 09/21/2016 by Alirio Esparza MD at [facility] IMPLANTS N/A: Chest [employer] - [id number] 04/29/2021 [id number] / / [id number] Patch,Cav,Pericar d,2x5cm ([id number]) (Autoreq) - [id number] Implanted:Qty: 1 on 09/21/2016 by Alirio Esparza MD at [facility] IMPLANTS N/A: Heart DO NOT USE [employer] - [id number] 04/21/2018 [id number] / / [id number] Tavr-05/12/2023 Implanted:Qty: 1 on 05/12/2023 by Antelmo Sharma MD Other Heart [employer] - [place] LI [id number] / [id number] / Description:[employer] NCES ABBY 3 ULTRA [...] EST Diagnostic Bone Marrow Biopsies & Aspirations (03[address]) 06/05/2024 2:03 PM EST Anemia, in pt [...] Borjas MD PATHOLOGY/CYTOLOGY ORDERABLES Performing Organization Address [facility] Co de Phone Number [facility] [place] [address] * BM HOLD FLOW/MOLECULAR (06/05/2024 2:22 PM EST) Bone Marrow Non Blood Collection / Unknown 06/05/2024 2:22 PM EST 06/05/2024 3:07 PM EST Markel Borjas MD PATHOLOGY/CYTOLOGY ORDERABLES Performing Organization Address [facility] [place] [address] * Bone Marrow (06/05/2024 2:22 PM EST) Case Report Bone Marrow Patholog y Report ?Case: [id number] ? Authorizing Provider: ??Markel Borjas MD ?Collected: ? 06/05/2024 1422 ? Ordering Location: ? Outpatient Surgery Center ??Received: ?06/05/2024 1508 ? [facility] ? Hospital ? Pathologist: ? Boucher, Georges L, MD ? Specimens: ?? A) - Iliac Crest, Left ? B) - Iliac Crest, Left ? C) - Iliac Crest, Left ? 1:31 PM [facility] Integrated Results Bone marrow karyotype [...] Clinical correlation is recommended. 1:31 PM [facility] Addendum electronically signed by Georges Boucher MD on 06/22/2024 at 1:31 PM Final Diagnosis BONE MARROW (BLOOD FILM, ASPIRATE, TOUCH PREP, CORE & CLOT SECTIONS): 1. Normocellular bone marrow with maturing trilineage hematopoiesis. No overt dysplasia or increased blasts. 2. Ancillary studies pending. 1:31 PM [facility] Discussion The patient's histor y [...] integrated report to follow. 1:31 PM [facility] Additional Studies Task ID IHC/Special Stains Result B1-3 Myeloperoxidase Highlights granulocytic precursors. B1-4 CD34 Highlights rare blasts (<5% of cells) B1-5 CD117 Highlights rare mast cells. B1-6 E-Cadherin Highlights normal erythroid precursors. B1-7 CD61 Highlights normal megakaryocytes. 4 1:31 PM [facility] Clinical Information Anemia, in patient with presumed hx of benign neutropenia 4 1:31 PM [facility] Gross Description A. Iliac Crest, [...] labeled C1. CCP 4 1:31 PM [facility] Disclaimer(s) Formalin-fixed, paraffin-embedded tissue sections [...] other diagnostic tests. 4 1:31 PM [facility] Bone Marrow Aspirate Adequacy: Smear/touch [...] no ring sideroblasts. 4 1:31 PM [facility] Bone Marrow Biopsy and/or Clot [...] bone normal for age. 1:31 PM [facility] Bone Marrow Differential Band/Seg 34%; Lymph 8%; [place] 0%; Eos 2%; Baso 1%; Metamyelocyte 13%; Myelocyte 9%; Promyelocyte 2%; Blast 1%; nRBC's 27%; Plasma cell 3% 4 1:31 PM [facility] Result Note Routine 1:31 PM [facility] Peripheral Blood Morphology RBCs: Mildly macrocytic anemia with rare target cells, ovalocytes. WBCs: Unremarkable. Platelets: Rare large platelet form present. 1:31 PM [facility] STRUCTURE OF LEFT ILIAC CREST / Unknown 06/05/2024 2:22 PM EST 06/05/2024 3:08 PM EST STRUCTURE OF LEFT ILIAC CREST / Unknown 06/05/2024 2:22 PM EST 06/05/2024 3:08 PM EST STRUCTURE OF LEFT ILIAC CREST / Unknown 06/05/2024 2:22 PM EST 06/05/2024 3:08 PM EST Markel Borjas MD PATHOLOGY/CYTOLOGY ORDERABLES [facility] [place] [address] * Chromosome Analysis, Acquired ([facility]) (06/05/2024 2:22 PM EST) Chromosome, Leukemia/Lymph ananya ([facility]) See Scanned Result 06/14/2024 6:28 PM EST REF [facility] Specimen Condition ([facility]) 06/14/2024 6:28 PM EST REF [facility] Bone Marrow Non Blood Collection / Unknown 06/05/2024 2:22 PM EST 06/05/2024 3:07 PM EST Georges Boucher MD LAB SEND OUT ORDERAB LES REF [facility] [address] [place] [address] * DH HemeSeq (Bone Marrow) (06/05/2024 2:22 PM EST) Pathologist [facility] NGS Report Status Normal 06/13/2024 10:21 AM EST [facility] Bone Marrow Non Blood Collection / Unknown 06/05/2024 2:22 PM EST 06/05/2024 3:07 PM EST Georges Boucher MD MOLECULAR ORDERABLES Performing Organization Address City/[facility]/ZIP Co de Phone Number [facility] [place] [address] * Immunophenotyping Flow Cytometry (06/05/2024 2:22 PM [...] blast populations identified. 06/06/2024 2:08 PM [facility] Lymphocyte % 4.7 % 06/06/2024 2:08 PM [facility] Monocyte % 3.0 % 06/06/2024 2:08 PM [facility] Granulocyte % 76.0 % 06/06/2024 2:08 PM [facility] CD45 DIM % 0.9 % 06/06/2024 2:08 PM [facility] CD38 Bright/CD138+ 0.2 % 06/06/2024 2:08 PM [facility] CD3+ % 70.0 % 06/06/2024 2:08 PM [facility] CD19+ % 17.0 % 06/06/2024 2:08 PM [facility] CD56+ % 12.0 % 06/06/2024 2:08 PM [facility] B-Cell:T-Cell Ratio 0.2 06/06/2024 2:08 PM [facility] [place]:Lambda Ratio 1.8 06/06/2024 2:08 PM [facility] CD4:CD8 Ratio 1.6 06/06/2024 2:08 PM [facility] Specimen Processing Cells for immunophenotypic analysis were derived from bone marrow. The following markers were assessed: CD2, CD3, CD4, CD5, CD7, CD8, CD10, CD19, CD20, CD38, CD45, CD56, CD138, kappa light chain, (c)kappa light chain, lambda light chain, (c)lambda light chain,CD13, CD14, CD34, CD45, CD117, and HLA-DR. 06/06/2024 2:08 PM [facility] Disclaimer Flow analysis is an ancillary study. A definite diagnosis requires correlation with the morphologic features of this process and if necessary, correlation with other ancillary studies like immunohistochemist ry, enzyme cytochemistry and/or cyto/molecular genetics. This test was developed and its performance characteristics determined by the Clinical Flow Cytometry Laboratory at [facility]. It has not been cleared [...] clinical laboratory testing. 06/06/2024 2:08 PM [facility] Bone Marrow Non Blood Collection / Unknown 06/05/2024 2:22 PM EST 06/05/2024 3:07 PM EST Georges Boucher MD HEMATOLOGY ORDERABLE S Performing Organization Address City/State/[facility] Co de Phone Number [facility] [place] [address] * Myelodysplastic Syndrome (MDS) FISH Panel (06/05/2024 2:22 PM EST) Specimen Condition adequate 06/08/2024 11:23 PM [facility] Indication for Study Anemia, in patient with presumed hx of benign neutropenia 06/08/2024 11:23 PM [facility] FISH Panel Summary NEGATIVE for all FISH Panel markers 06/08/2024 11:23 PM [facility] FISH Results 5q deletion, monosomy 5, 7q deletion, monosomy 7, trisomy 8, and 20q deletion NOT DETECTED. 06/08/2024 11:23 PM [facility] ISCN Nomenclature nuc josselin(D5S23,EGR1)x2[ 200],(D7Z1,K3S492) x2[200],(D8Z2,D20S 108)x2[200] 06/08/2024 11:23 PM [facility] Culture Type Direct [place] 06/08/20 11:23 PM [facility] FISH Method Interphase 06/08/2024 11:23 PM [facility] Interpretation Interphase FISH analysis using [...] analysis using probes for CEP7/D7Z1/7p11.1q1 1.1 and I7P047/7q31 loci ([employer] shows 1.5% and 0% of 200 cells with 7q signal deletion (7q-) and chromosome 7 signal loss (monosomy 7) patterns, respectively. These are within acceptable reference limits (7q deletion: 0-6.3%; monosomy 7: 0-4.4%). Thus, there is no evidence for 7q deletion and monosomy 7. Interphase FISH analysis using probes for CEP8/D8Z2/8p11.1q1 1.1 and M68T035/20q12 loci ([employer] shows 0% and 2.5% of 200 cells with a chromosome 8 signal gain and 20q signal deletion patterns, respectively. These are within acceptable reference limits (trisomy 8: 0-5.1%; 20q deletion: 0-6.3%). Thus, there is no evidence for trisomy 8 and 20q deletion. Correlation with clinical and pathological studies is suggested. 06/08/2024 11:23 PM [facility] Technical Methods FISH is performed [...] The FISH probes are directly-labeled by the level glass forming machine operator ([employer]) with either a spectrum orange, green, or aqua fluorochrome. Cells are stained with DAPI ([employer]), visualized through fluorescence microscopy, and images captured on the CytoVision software ([employer]). Results are reported based on an International System for Human Cytogenomic Nomenclature. 06/08/2024 11:23 PM EST [facility] Limitations & Disclaimers The FISH test was developed and its performance characteristics were determined by the [facility] ([facility]) Cytogenetics Laboratory as required by The Clinical [...] verified the test's accuracy and precision. The [facility] Cytogenetics Laboratory is certified under the CLIA'88 as qualified to perform high complexity clinical laboratory testing. Chromosome alterations outside the regions complementary to these DNA FISH probes will not be detected. 06/08/2024 11:23 PM EST [facility] Sign-out by Professional component performed by Lizette Bullock, Ph.D., [facility], [facility] [address], [place], [place] (CLIA #: [id number]). 06/08/2024 11:23 PM EST [facility] Bone Marrow Non Blood Collection / Unknown 06/05/2024 2:22 PM EST 06/05/2024 3:07 PM EST Georges Boucher MD MOLECULAR ORDERABLES [facility] [place] [address] * (ABNORMAL) CBC (with Diff) (06/05/2024 1:45 PM EST) Only the most recent of2 resultswithin the time period is included. White Blood Cell 3.06(L) 4.00 - 9.50 x10(3)/mc L 06/05/2024 2:38 PM [facility] Red Blood Cell 3.35(L) 4.00 - 5.21 x10(6)/mc L 06/05/2024 2:38 PM [facility] Hemoglobin 11.0(L) 11.7 - 15.5 g/dL 06/05/2024 2:38 PM [facility] Hematocrit 33.4(L) 35.7 - 45.8 % 06/05/2024 2:38 PM [facility] Mean Cell Volume 99.7(H) 82.6 - 94.4 fL 06/05/2024 2:38 PM [facility] Mean Cell Hemoglobin 32.8(H) 27.1 - 32.0 pg 06/05/2024 2:38 PM [facility] Mean Cell Hemoglobin Concentration 32.9 31.7 - 35.0 g/dL 06/05/2024 2:38 PM [facility] Platelet 151 145 - 357 x10(3)/mc L 06/05/2024 2:38 PM [facility] Mean Platelet Volume 8.9 7.6 - 12.9 fL 06/05/2024 2:38 PM [facility] RDW Standard Deviation 44.3 37.0 - 46.0 fL 06/05/2024 2:38 PM [facility] RDW coefficient of variation 12.0 11.5 - 14.1 % 06/05/2024 2:38 PM [facility] NRBC% auto 0.0 % 06/05/2024 2:38 PM [facility] NRBC Absolute <0.01 <0.01 x10(3)/mc L 06/05/2024 2:38 PM [facility] Neutrophil % 62.8 % 06/05/2024 2:38 PM [facility] Neutrophil Absolute (ANC) - Automated 1.92 1.70 - 6.10 x10(3)/mc L 06/05/2024 2:38 PM EST [facility] Lymph % 20.9 % 06/05/2024 2:38 PM EST [facility] Lymph Absolute 0.64(L) 0.90 - 3.20 x10(3)/mc L 06/05/2024 2:38 PM EST [facility] Monocyte % 15.0 % 06/05/2024 2:38 PM EST [facility] Monocyte Absolute 0.46 0.30 - 0.90 x10(3)/mc L 06/05/2024 2:38 PM EST [facility] Eos % 0.3 % 06/05/2024 2:38 PM EST [facility] Eos Absolute <0.04 0.00 - 0.40 x10(3)/mc L 06/05/2024 2:38 PM EST [facility] Basophil % 0.7 % 06/05/2024 2:38 PM EST [facility] Baso Absolute <0.04 0.00 - 0.10 x10(3)/mc L 06/05/2024 2:38 PM EST [facility] Immature Gran % 0.3 % 2:38 PM [facility] Immature Gran Absolute <0.04 0.00 - 0.04 x10(3)/mc L 06/05/2024 2:38 PM EST [facility] Blood VENOUS BLOOD SPECIMEN / Unknown Venipuncture / Unknown 06/05/2024 1:45 PM EST 06/05/2024 1:59 PM EST Markel Borjas MD HEMATOLOGY ORDERAB LES [facility] [place] [address] * DXA Central Spine, Hip, and/or Whole Body (Generic) (05/18/2024 11:21 AM EDT) PT CLASS O DH RAD ADMITDTTM [id number] RAD PT [facility] INFO [id number]^Dave ^Magdalena [facility] EXAM DESC XDXAC^BD Bone Density DEXA Axial Skeleton^RIS [facility] WORKSTATION ID RADDRIMAGE [facility] Anatomical Region Laterality Modality C-spine, Hip [...] questions please contact the health foster care case manager that requested your imaging first. ? Electronically signed by: Rocael Villatoro MD, [facility] ([phone]), at 05/18/2024 11:25 AM Narrative 05/18/2024 11:25 [...] have questions please contactthe health foster care case manager that requested your imaging first. Magdalena Acosta MD IMG DEXA ORDERABLES * MAMMO SCREENING CAD BILATERAL (CH) (05/18/2024 11:21 AM EDT) PT CLASS O RAD ADMITDTTM [id number] RAD PT RAD INFO [id number]^Dave ^Magdalena RAD EXAM DESC MADDSCCH^MG Mammo Digital [...] questions please contact the health foster care case manager that requested your imaging first. ? Electronically signed by: Rocael Villatoro MD, [facility] ([phone]), at 05/18/2024 3:[address] [place], [place] ??[address] Narrative 05/18/2024 3:05 PM EDT EXAMINATION: MG [...] have questions please contactthe health foster care case manager that requested your imaging first. Electronically signed by: Rocael Villatoro MD, [facility]([phone]), at 05/18/2024 3:05 PM [place] [phone] Magdalena Acosta MD PACS IMAGES * Reticulocyte [...] EDT 05/12/2024 8:56 AM EDT Tova Russell TICKET PRINTER HEMATOLOGY ORDERABL ES [facility] [place] [address] * (ABNORMAL) Comprehensive metabolic panel Non-fasting (05/12/2024 [...] Total 0.2 <=1.3 mg/dL 05/12/2024 11:36 AM [facility] Est Glomerular Filtration Rate - [...] EDT 05/12/2024 8:56 AM EDT Tvoa Russell TICKET PRINTER CHEMISTRY ORDERABLE S [facility] [place] [phone] from Last 3 Months Advance Directives * [...] capacity to make decision: Yes Care Teams Computer Forensics Examiner Relationship Specialty Start Date End Date Magdalena Acosta MD [address] [place] [id number] PCP - General Family Medicine 02/05/23
--- OUTSIDE RECORDS SUMMARY | 2024-07-15 12:28 | XMS_ITS | Encounter Summary ---
Author Organization [facility] Address [address] [place] [address] Care Team Providers Care Privacy Director Name Role Phone Unavailable Primary Care Provider Unavailabl e Encounter Details Date Type Department Care Team (Late st Contact Info) Description 04/20/2005 Results Only [facility] [address] [place] [address] Ziggy Valiente MD [address] [place] [address] Social History Tobacco Use Types Packs/Day [...] ? 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 Accession #: ? [id number] ? : ? 1955 (Age: 49) ??F [...] correlation with endoscopic appearance is recommended. (Dr. Chino)/[facility] Document reviewed and electronically signed by: TYRON [...] Final Resul t [facility] [address] [place] [address] documented in this encounter Visit Diagnoses Not on filedocumented in this encounter
--- OUTSIDE RECORDS SUMMARY | 2024-07-15 12:28 | XMS_ITS | Encounter Summary ---
Author Organization [facility] Address [address] [place] [address] Care Team Providers Care Coil Connector Name Role Phone Ashley Chavez Primary Care Provider [phone] Encounter Details Date Type Department Care Team (Latest Contact Info) Description 05/12/2019 13:18 EDT - 05/12/2019 23:59 EDT Hospital Encounter [address] [address] Unknown, Provider, MD Discharge Disposition: Home or [...] Code Departure Means Destination Home or Self [facility] documented in this encounter Plan of Treatment Not on file documented as of this encounter Visit Diagnoses Not on filedocumented in this encounter Care Teams Coil Connector Relationship Specialty Start Date End Date Ashley Chavez ARNP [address] [place] [address] PCP - General 07/11/10 documented as of this encounter
--- OUTSIDE RECORDS SUMMARY | 2024-07-15 12:28 | XMS_ITS | Encounter Summary ---
Author Organization [facility] Address [address] [place] [address] Care Team Providers Care Train Operations Manager Name Role Phone Ashley Chavez Primary Care Provider [phone] Encounter Details Date Type Department Care Team (Late st Contact Info) Description 05/12/[address] [facility] Pathology & Laboratory Medicine - [address] [id number] Outr Resulting Lab, Provider Social History Tobacco [...] 22:46 EDT [facility] Blood VENOUS BLOOD / Unknown 05/12/2022 14:32 EDT 05/12/2022 21:40 EDT us Provider Outr Resulting Lab LAB INFO SERVICE AND SUPPORT & PHONE RESULT Final Result Performing Organization Address [facility] Co de Phone Number [facility] [address] [place] [address] * (ABNORMAL) HOMOCYSTEINE (05/12/2022 14:32 EDT) Homocysteine 14.7(H) 5.0 - 13.9 umol/L 05/13/2022 9:05 EDT [facility] Comment:Results may be false ly elevated if sample is not collected on ice or is not removed from cells within 1 hour of collection. Blood VENOUS BLOOD / Unknown 05/12/2022 14:32 EDT 05/12/2022 21:40 EDT Narrative [facility] - 05/13/2022 9:05 EDT Reference [...] S ORDERABLES Final Result Performing Organization Address [facility] Co de Phone Number [facility] [address] [place] [address] * HAPTOGLOBIN (05/12/2022 14:32 EDT) Haptoglobin 138 32 - 197 mg/dL 05/13/2022 9:55 EDT [facility] Blood VENOUS BLOOD / Unknown 05/12/2022 14:32 EDT 05/12/2022 21:36 EDT us Provider Outr Resulting Lab CHEMISTRY & BLOOD GA S ORDERABLES Final Result Performing Organization Address [facility]/State/ZIP Co de Phone Number [facility] [address] [place] [address] * (ABNORMAL) ANTI NUCLEAR AB (FRANCISCO), IFA (05/12/2022 14:32 EDT) FRANCISCO Interpretation Positive(A) Negative 05/13/2022 14:44 EDT [facility] Comment: Result is equal to [...] 14:44 EDT [facility] Blood VENOUS BLOOD / Unknown 05/12/2022 14:32 EDT 05/12/2022 21:36 EDT Narrative [facility] - 05/13/2022 14:44 EDT Results were obtained with the INOVA NOVA Lite HEp-2 FRANCISCO Kit by indirect immunofluorescence. us Provider Outr Resulting Lab IMMUNOLOGY AND SEROL OGY ORDERABLES Final Result [facility] [address] [place] [address] documented in this encounter Visit Diagnoses Not on filedocumented in this encounter Care Teams Train Operations Manager Relationship Specialty Start Date End Date Ashley Chavez ARNP [facility] [place] [address] PCP - General 07/11/10 documented as of this encounter
--- OUTSIDE RECORDS SUMMARY | 2024-07-15 12:28 | XMS_ITS | Encounter Summary ---
Author Organization [facility] [place] [address] Care Team Providers Care Design Supervisor Name Role Phone Magdalena Acosta MD Primary Care Provider [phone] Encounter Details Date Type Department Care Team (Latest Contact Info) Description 06/05/2024 1:04 PM EST - 06/05/2024 3:08 PM EST Hospital Encounter [place] [address] Markel Borjas MD [facility] [address] [place] [address] Discharge Disposition: Home Social History Tobacco Use [...] 5pm or on a weekend: Call the [facility] cnc operator at and ask for the physician technologies division chair covering for your doctor. Instructions following sedation [...] drainage occurs, [place] [address] [email or web address] [facility] documented in this [...] Verio test strips Strip USE DAILY 01/03/2022 SportSetterTouch Delica Plus Lancet 33 gauge Misc USE [...] 11/02/2024 12:00 PM EDT Appointment [place] [address] 11/02/2024 1:00 PM EDT Office [place] [phone] Magdalena Peralta MD [facility] [place] [address] 03/01/2025 4:15 PM EDT Office Visit Dermatology at [place] [address] [place] [phone] Marek Bonilla MD [address] [place] [address] documented as of this encounter Procedures Procedure [...] EST Diagnostic Bone Marrow Biopsies & Aspirations (33737) 06/05/2024 2:03 PM EST Anemia, in pt [...] [facility] ISCN Nomenclature nuc josselin(D5S23,EGR1)x2[ 200],(D7Z1,L9E027) x2[200],(D8Z2,D20S 108)x2[200] 06/08/2024 11:23 PM [facility] Culture Type Direct [place] 06/08/20 24 11:23 PM [facility] [...] analysis using probes for CEP7/D7Z1/7p11.1q1 1.1 and M4T148/7q31 loci ([employer] shows 1.5% and 0% of 200 cells with 7q signal deletion (7q-) and chromosome 7 signal loss (monosomy 7) patterns, respectively. These are within acceptable reference limits (7q deletion: 0-6.3%; monosomy 7: 0-4.4%). Thus, there is no evidence for 7q deletion and monosomy 7. Interphase FISH analysis using probes for CEP8/D8Z2/8p11.1q1 1.1 and L67Y801/20q12 loci ([employer] shows 0% and 2.5% of 200 [...] The FISH probes are directly-labeled by the freight brakeman ([employer] or [employer]) with either a spectrum orange, green, or aqua fluorochrome. Cells are stained with DAPI ([employer]), visualized through fluorescence microscopy, and images captured on the CytoVision software (Footnote). Results are reported based on an International System for Human Cytogenomic Nomenclature. 06/08/2024 11:23 PM [facility] Limitations & Disclaimers The FISH test was developed and its performance characteristics were determined by the [facility] ([facility]) Cytogenetics Laboratory as required by The Clinical [...] verified the test's accuracy and precision. The [facility] Cytogenetics Laboratory is certified under the CLIA'88 as qualified to perform high complexity clinical laboratory testing. Chromosome alterations outside the regions complementary to these DNA FISH probes will not be detected. 06/08/2024 11:23 PM EST [facility] Sign-out by Professional component performed by Lizette Bullock, Ph.D., [facility], [address], [place], [place] (CLIA #: [id number]). 06/08/2024 11:23 PM EST [facility] Bone Marrow Non Blood Collection / Unknown 06/05/2024 2:22 PM EST 06/05/2024 3:07 PM EST Georges Boucher MD MOLECULAR ORDERABLES Performing Organization Address City/[facility]/ZIP Co de Phone Number [facility] [place] [address] * Chromosome Analysis, Acquired ([facility]) (06/05/2024 2:22 [...] ORDERAB LES REF LAB [facility] [address] [place] [address] * HemeSeq (Bone Marrow) (06/05/2024 2:22 PM EST) NGS Report Status Normal 06/13/2024 10:21 AM EST [facility] Bone Marrow Non Blood Collection / Unknown 06/05/2024 2:22 PM EST 06/05/2024 3:07 PM EST Georges Boucher MD MOLECULAR ORDERABLES [facility] [place] [address] * Immunophenotyping Flow Cytometry (06/05/2024 2:22 PM [...] PM [facility] [place]:Lambda Ratio 1.8 06/06/2024 2:08 PM [facility] [...] S Performing Organization Address [facility] [place] [address] * BM HOLD CYTOGENETICS/FISH (06/05/2024 2:22 PM EST) Bone Marrow Non Blood Collection / Unknown 06/05/2024 2:22 PM EST 06/05/2024 3:07 PM EST Narrative [facility] - 06/06/2024 10:47 AM EST ~3ml Markel Borjas MD PATHOLOGY/CYTOLOGY ORDERABLES Performing Organization Address [facility] [place] [address] * BM HOLD FLOW/MOLECULAR (06/05/2024 2:22 PM EST) Bone Marrow Non Blood Collection / Unknown 06/05/2024 2:22 PM EST 06/05/2024 3:07 PM EST Markel Borjas MD PATHOLOGY/CYTOLOGY ORDERABLES Performing Organization Address [facility] de Phone Number [facility] [place] [address] * Bone Marrow (06/05/2024 2:22 PM EST) Case Report Bone Marrow Patholog y Report ?Case: [id number] ? Authorizing Provider: ??Markel Borjas MD ?Collected: ? 06/05/2024 1422 ? Ordering Location: ? [facility] ??Received: ?06/05/2024 1508 ? [facility] ? Hospital ? Pathologist: ? Citlaly, Georges L, MD ? Specimens: ?? A) - Iliac Crest, Left ? B) - Iliac Crest, Left ? C) - Iliac Crest, Left ? 11/21/202 4 1:31 PM EST [facility] Integrated Results Bone marrow [...] in toto in 1 cassette labeled C1. [facility] 1:31 PM [facility] [...] criteria and other diagnostic tests. 1:31 PM [facility] [...] stores present, no ring sideroblasts. 1:31 PM [facility] [...] bone normal for age. 1:31 PM EST [facility] Bone Marrow Differential Band/Seg 34%; Lymph 8%; Screven 0%; Eos 2%; Baso 1%; Metamyelocyte 13%; Myelocyte 9%; Promyelocyte 2%; Blast 1%; nRBC's 27%; Plasma cell 3% 4 1:31 PM EST [facility] Result Note Routine 1:31 PM [facility] [...] MD PATHOLOGY/CYTOLOGY ORDERABLES [facility] [place] [address] * (ABNORMAL) CBC (with Diff) (06/05/2024 1:45 [...] % 15.0 % 06/05/2024 2:38 PM EST [facility] Monocyte Absolute 0.46 0.30 [...] MD HEMATOLOGY ORDERAB LES Performing Organization Address City/State/[facility] Co de Phone Number [facility] [place] [address] documented in this encounter Visit Diagnoses Not [...] RN) documented in this encounter Care Teams Design Supervisor Relationship Specialty Start Date End Date Magdalena Acosta MD [address] [place] [address] PCP - General Family Medicine 02/05/23 documented as of this encounter
--- OUTSIDE RECORDS SUMMARY | 2024-07-15 12:28 | XMS_ITS | Encounter Summary ---
Author Organization [facility] [place] [address] Care Team Providers Care Eap Specialist Name Role Phone Magdalena Acosta MD Primary Care Provider [phone] Encounter Details Date Type Department Care Team [...] 11/02/2024 12:00 PM EDT [place]oint[place] [phone] 11/02/2024 1:00 PM EDT [place] [phone] Magdalena Peralta MD [facility] [place] [address] 03/01/2025 4:15 PM EDT Office Visit Dermatology at [place] [address] [place] [address] Marek Bonilla MD [address] [place] [address] documented as of this encounter Visit Diagnoses Not on filedocumented in this encounter Care Teams Eap Specialist Relationship Specialty Start Date End Date Magdalena Acosta MD [address] [place] [address] PCP - General Family Medicine 02/05/23 documented as of this encounter
--- OUTSIDE RECORDS SUMMARY | 2024-07-15 12:28 | XMS_ITS | Encounter Summary ---
Author Organization [facility] Address [facility] [place] [address] Care Team Providers Care Weight Caller Name Role Phone Magdalena Acosta MD Primary Care Provider [phone] Reason for Visit * Reason Onset Date Comments Medication Refill 05/24/2024 Encounter Details Date Type Department Care Team (Late st Contact Info) Description 05/24/2024 Refill [place] [address] Magdalena Peralta MD [facility] [address] Social History Tobacco Use Types Packs/Day Years [...] 200 mg tablet [facility] - [place], [place] - [address] [facility] [address] [facility] [address] documented in this encounter Plan of Treatment Upcoming Encounters Date Type Department Care Team (Late st Contact Info) Description 11/02/2024 12:00 PM EDT Appointment [place] [address] 11/02/2024 1:00 PM EDT Office [place] [phone] Magdalena Peralta MD [facility] [place] [address] 03/01/2025 4:15 PM EDT Office Visit Dermatology at [address] [place] [address] Marek Bonilla MD [address] [facility], [place] [address] documented as of this encounter Visit Diagnoses Not on filedocumented in this encounter Care Teams Weight Caller Relationship Specialty Start Date End Date Magdalena Acosta MD [address] [place] [address] PCP - General Family Medicine 02/05/23 documented as of this encounter
--- OUTSIDE RECORDS SUMMARY | 2024-07-15 12:28 | XMS_ITS | Encounter Summary ---
Author Organization [facility] [place] [address] Care Team Providers Care Redevelopment Specialist Name Role Phone Magdalena Acosta MD Primary Care Provider [phone] Encounter Details Date Type Department Care Team [...] 11/02/2024 12:00 PM EDT Appointment [place] [phone] 11/02/2024 1:00 PM EDT Office [place] [phone] Magdalena Peralta MD [facility] [place] [address] 03/01/2025 4:15 PM EDT Office Visit Dermatology at [place] [address] [place] [address] Marek Bonilla MD [address] [place] [address] documented as of this encounter Visit Diagnoses Not on filedocumented in this encounter Care Teams Redevelopment Specialist Relationship Specialty Start Date End Date Magdalena Acosta MD [address] [place] [address] PCP - General Family Medicine 02/05/23 documented as of this encounter
--- OUTSIDE RECORDS SUMMARY | 2024-07-15 12:28 | XMS_ITS | Encounter Summary ---
Author Organization [facility] [place] [address] Care Team Providers Care Assistant Drafter Name Role Phone Magdalena Acosta MD Primary Care Provider [phone] Encounter Details Date Type Department Care Team (Late st Contact Info) Description 06/05/2024 2:00 PM EST - 06/05/2024 3:00 PM EST Surgery [place] [address] Markel Borjas MD [facility] [address] HEMATOLOGY [place] [address] ([facility]C MSURG) BONE MARROW BIOPSY AND ASPIRATION; [...] on a weekend: Call the [facility] gate mortiser operator at and ask for the physician water conservation specialist covering for your doctor. Instructions following [...] drainage occurs, [place] [address] [email or web address] [facility] documented in this encounter Medications at Time [...] topically 2 times daily as needed. 10/22/2022 Neck Tie KooziesTouch Verio test strips Strip USE DAILY 01/03/2022 Neck Tie KooziesTouch Delica Plus Lancet 33 gauge Misc USE [...] PM EDT Appointment [place] [address] 11/02/2024 1:00 PM EDT Office [place] [address] Magdalena Peralta MD [facility] [place] [address] 03/01/2025 4:15 PM EDT Office Visit Dermatology at [place] [address] [facility] [place] [phone] Marek Bonilla MD [address], [address] [place] [address] documented as of this encounter Procedures Procedure [...] EST Diagnostic Bone Marrow Biopsies & Aspirations (296[address]) 06/05/2024 2:03 PM EST Anemia, in pt with longstanding neutropenia CBC (WITH DIFF) Routine 06/05/2024 1:45 PM EST (OSC MSURG) BONE MARROW BIOPSY AND ASPIRATION; DIAGNOSTIC Routine 06/05/2024 1:07 PM EST documented in this encounter Results * Myelodysplastic Syndrome (MDS) FISH Panel (06/05/2024 2:22 PM EST) Specimen Condition adequate 06/08/2024 11:23 PM [facility] Indication for Study Anemia, in patient with presumed hx of benign neutropenia 06/08/2024 11:23 PM [facility] FISH Panel Summary NEGATIVE for all FISH Panel markers 06/08/2024 11:23 PM [facility] FISH Results 5q deletion, monosomy 5, 7q deletion, monosomy 7, trisomy 8, and 20q deletion NOT DETECTED. 06/08/2024 11:23 PM [facility] ISCN Nomenclature nuc josselin(D5S23,EGR1)x2[ 200],(D7Z1,N5P774) x2[200],(D8Z2,D20S 108)x2[200] 06/08/2024 11:23 PM [facility] Culture Type Direct Freedom 06/08/20 11:23 PM [facility] FISH Method Interphase 06/08/2024 11:23 PM [facility] Interpretation Interphase FISH analysis using [...] analysis using probes for CEP7/D7Z1/7p11.1q1 1.1 and Y9Q474/7q31 loci ([employer] shows 1.5% and 0% of 200 cells with 7q signal deletion (7q-) and chromosome 7 signal loss (monosomy 7) patterns, respectively. These are within acceptable reference limits (7q deletion: 0-6.3%; monosomy 7: 0-4.4%). Thus, there is no evidence for 7q deletion and monosomy 7. Interphase FISH analysis using probes for CEP8/D8Z2/8p11.1q1 1.1 and U86E733/20q12 loci ([employer] shows 0% and 2.5% of 200 cells with a chromosome 8 signal gain and 20q signal deletion patterns, respectively. These are within acceptable reference limits (trisomy 8: 0-5.1%; 20q deletion: 0-6.3%). Thus, there is no evidence for trisomy 8 and 20q deletion. Correlation with clinical and pathological studies is suggested. 06/08/2024 11:23 PM [facility] Technical Methods FISH is performed [...] The FISH probes are directly-labeled by the tile mechanic helper ([employer] or [employer]) with either a spectrum orange, green, or aqua fluorochrome. Cells are stained with DAPI ([employer]), visualized through fluorescence microscopy, and images captured on the CytoVision software ([employer]). Results are reported based on an International System for Human Cytogenomic Nomenclature. 06/08/2024 11:23 PM [facility] Limitations & Disclaimers The FISH test was developed and its performance characteristics were determined by the [facility] ([facility] Cytogenetics [facility] as required by [...] verified the test's accuracy and precision. The [facility] Cytogenetics [facility] is certified under the CLIA'88 as qualified to perform high complexity clinical laboratory testing. Chromosome alterations outside the regions complementary to these DNA FISH probes will not be detected. 06/08/2024 11:23 PM EST [facility] Sign-out by Professional component performed by Lizette Bullock, Ph.D., [facility], [address], [place], [place] (CLIA #: [id number]). 06/08/2024 11:23 PM EST [facility] Bone Marrow Non Blood Collection / Unknown 06/05/2024 2:22 PM EST 06/05/2024 3:07 PM EST Georges Boucher MD MOLECULAR ORDERABLES Performing Organization Address City/[facility]/ZIP Co de Phone Number [facility] [place] [address] * Chromosome Analysis, Acquired ([facility]) (06/05/2024 2:22 [...] ORDERAB LES REF LAB [facility] [address] [place] [address], [facility] * HemeSeq (Bone Marrow) (06/05/2024 2:22 PM EST) Pathologist [facility] NGS Report Status Normal 06/13/2024 10:21 AM EST [facility] Bone Marrow Non Blood Collection / Unknown 06/05/2024 2:22 PM EST 06/05/2024 3:07 PM EST Georges Boucher MD MOLECULAR ORDERABLES [facility] [place] [address] * Immunophenotyping Flow Cytometry (06/05/2024 2:22 PM EST) Final Diagnosis - No monotypic B-cell population, no monotypic plasma cell population, no phenotypically abnormal T-cell population or increase in blasts is detected. 06/06/2024 2:08 PM [facility] Signing Pathologist This result has [...] % 4.7 % 06/06/2024 2:08 PM EST [facility] Monocyte % 3.0 % 06/06/2024 2:08 PM EST [facility] Granulocyte % 76.0 % 06/06/2024 2:08 PM [facility] CD45 DIM % 0.9 % 06/06/2024 2:08 PM [facility] CD38 Bright/CD138+ 0.2 % 06/06/2024 2:08 PM [facility] CD3+ % 70.0 % 06/06/2024 2:08 PM [facility] CD19+ % 17.0 % 06/06/2024 2:08 PM [facility] CD56+ % 12.0 % 06/06/2024 2:08 PM [facility] B-Cell:T-Cell Ratio 0.2 06/06/2024 2:08 PM [facility] Finzel:Lambda Ratio 1.8 06/06/2024 2:08 PM [facility] CD4:CD8 Ratio 1.6 06/06/2024 2:08 PM [facility] Specimen Processing Cells for immunophenotypic analysis were derived from bone marrow. The following markers were assessed: CD2, CD3, CD4, CD5, CD7, CD8, CD10, CD19, CD20, CD38, CD45, CD56, CD138, kappa light chain, (c)kappa light chain, lambda light chain, (c)lambda light chain,CD13, CD14, CD34, CD45, CD117, and HLA-DR. 06/06/2024 2:08 PM [facility] Disclaimer Flow analysis is an ancillary study. A definite diagnosis requires correlation with the morphologic features of this process and if necessary, correlation with other ancillary studies like immunohistochemist ry, enzyme cytochemistry and/or cyto/molecular genetics. This test was developed and its performance characteristics determined by the Clinical Flow Cytometry Laboratory at [facility]. It has not been cleared [...] complexity clinical laboratory testing. 06/06/2024 2:08 PM [facility] Bone Marrow Non Blood Collection / Unknown 06/05/2024 2:22 PM EST 06/05/2024 3:07 PM EST Georges Boucher MD HEMATOLOGY ORDERABLE S Performing Organization Address [facility] [place] [address] * BM HOLD CYTOGENETICS/FISH (06/05/2024 2:22 PM EST) Bone Marrow Non Blood Collection / Unknown 06/05/2024 2:22 PM EST 06/05/2024 3:07 PM EST Narrative [facility] - 06/06/2024 10:47 AM EST ~3ml Markel Borjas MD PATHOLOGY/CYTOLOGY ORDERABLES Performing Organization Address [facility] [place] [address] * BM HOLD FLOW/MOLECULAR (06/05/2024 2:22 PM EST) Bone Marrow Non Blood Collection / Unknown 06/05/2024 2:22 PM EST 06/05/2024 3:07 PM EST Markel Borjas MD PATHOLOGY/CYTOLOGY ORDERABLES Performing Organization Address [facility] de Phone Number [facility] [place] [address] * Bone Marrow (06/05/2024 2:22 PM EST) Case Report Bone Marrow Patholog y Report ?Case: [id number] ? Authorizing Provider: ??Markel Borjas MD ?Collected: ? 06/05/2024 1422 ? Ordering Location: ? [facility] ??Received: ?06/05/2024 1508 ? [facility] ? Pathologist: ? Boucher, [...] Clinical correlation is recommended. 4 1:31 PM [facility] Addendum electronically signed by Georges Boucher MD on 06/22/2024 at 1:31 PM Final Diagnosis BONE MARROW (BLOOD FILM, ASPIRATE, TOUCH PREP, CORE & CLOT SECTIONS): 1. Normocellular bone marrow with maturing trilineage hematopoiesis. No overt dysplasia or increased blasts. 2. Ancillary studies pending. 1:31 PM [facility] Discussion The patient's histor y [...] integrated report to follow. 4 1:31 PM [facility] Additional Studies Task ID IHC/Special Stains Result B1-3 Myeloperoxidase Highlights granulocytic precursors. B1-4 CD34 Highlights rare blasts (<5% of cells) B1-5 CD117 Highlights rare mast cells. B1-6 E-Cadherin Highlights normal erythroid precursors. B1-7 CD61 Highlights normal megakaryocytes. 4 1:31 PM [facility] Clinical Information Anemia, in patient with presumed hx of benign neutropenia 4 1:31 PM [facility] Gross Description A. Iliac Crest, Left. Number of Lavender (EDTA) tubes: 3 Total Volume of Lavender (EDTA) tubes: 8 ml Number of Green (NaHep) tubes: 1 Total Volume of Green (NaHep) tubes: 3 ml Spicule/Clot Section submitted? Present Tube to Biorepository? Present Processed by: Abbie Barrow Collected off the [facility] by: N/A B. Iliac Crest, Left. B [...] 1 cassette labeled C1. CCP 1:31 PM [facility] Disclaimer(s) Formalin-fixed, paraffin-embedded tissue sections [...] criteria and other diagnostic tests. 1:31 PM [facility] Bone Marrow Aspirate Adequacy: Smear/touch [...] stores present, no ring sideroblasts. 1:31 PM [facility] Bone Marrow Biopsy and/or Clot [...] normal for age. 4 1:31 PM EST [facility] Bone Marrow Differential Band/Seg 34%; Lymph 8%; [place] 0%; Eos 2%; Baso 1%; Metamyelocyte 13%; Myelocyte 9%; Promyelocyte 2%; Blast 1%; nRBC's 27%; Plasma cell 3% 4 1:31 PM [facility] Result Note Routine 1:31 PM [facility] Peripheral Blood Morphology RBCs: Mildly macrocytic anemia with rare target cells, ovalocytes. WBCs: Unremarkable. Platelets: Rare large platelet form present. 1:31 PM [facility] STRUCTURE OF LEFT ILIAC CREST / Unknown 06/05/2024 2:22 PM EST 06/05/2024 3:08 PM EST STRUCTURE OF LEFT ILIAC CREST / Unknown 06/05/2024 2:22 PM EST 06/05/2024 3:08 PM EST STRUCTURE OF LEFT ILIAC CREST / Unknown 06/05/2024 2:22 PM EST 06/05/2024 3:08 PM EST Markel Borjas MD PATHOLOGY/CYTOLOGY ORDERABLES [facility] [place] [address] * (ABNORMAL) CBC (with Diff) (06/05/2024 1:45 PM EST) White Blood Cell 3.06(L) 4.00 - 9.50 x10(3)/mc L 06/05/2024 2:38 PM EST [facility] Red Blood Cell 3.35(L) 4.00 - 5.21 x10(6)/mc L 06/05/2024 2:38 PM [facility] Hemoglobin 11.0(L) 11.7 - 15.5 g/dL 06/05/2024 2:38 PM [facility] Hematocrit 33.4(L) 35.7 - 45.8 % 06/05/2024 2:38 PM [facility] Mean Cell Volume 99.7(H) 82.6 - 94.4 fL 06/05/2024 2:38 PM [facility] Mean Cell Hemoglobin 32.8(H) 27.1 - 32.0 pg 06/05/2024 2:38 PM [facility] Mean Cell Hemoglobin Concentration 32.9 31.7 - 35.0 g/dL 06/05/2024 2:38 PM [facility] Platelet 151 145 - 357 x10(3)/mc L 06/05/2024 2:38 PM [facility] Mean Platelet Volume 8.9 7.6 - 12.9 fL 06/05/2024 2:38 PM [facility] RDW Standard Deviation 44.3 37.0 - 46.0 fL 06/05/2024 2:38 PM [facility] RDW coefficient of variation 12.0 11.5 - 14.1 % 06/05/2024 2:38 PM [facility] NRBC% auto 0.0 % 06/05/2024 2:38 PM [facility] NRBC Absolute <0.01 <0.01 x10(3)/mc L 06/05/2024 2:38 PM [facility] Neutrophil % 62.8 % 06/05/2024 2:38 PM [facility] Neutrophil Absolute (ANC) - Automated 1.92 1.70 - 6.10 x10(3)/mc L 06/05/2024 2:38 PM [facility] Lymph % 20.9 % 06/05/2024 2:38 PM [facility] Lymph Absolute 0.64(L) 0.90 - 3.20 x10(3)/mc L 06/05/2024 2:38 PM EST [facility] Monocyte % 15.0 % 06/05/2024 2:38 PM [facility] Monocyte Absolute 0.46 0.30 - 0.90 x10(3)/mc L 06/05/2024 2:38 PM EST [facility] Eos % 0.3 % 06/05/2024 2:38 PM [facility] Eos Absolute <0.04 0.00 - 0.40 x10(3)/mc L 06/05/2024 2:38 PM EST [facility] Basophil % 0.7 % 06/05/2024 2:38 PM [facility] Baso Absolute <0.04 0.00 - 0.10 x10(3)/mc L 06/05/2024 2:38 PM [facility] Immature Gran % 0.3 % 2:38 PM [facility] Immature Gran Absolute <0.04 0.00 - 0.04 x10(3)/mc L 06/05/2024 2:38 PM [facility] Blood VENOUS BLOOD SPECIMEN / Unknown Venipuncture / Unknown 06/05/2024 1:45 PM EST 06/05/2024 1:59 PM EST Markel Borjas MD HEMATOLOGY ORDERAB LES [facility] [place] [address] documented in this encounter Visit Diagnoses Not [...] RN) documented in this encounter Care Teams Assistant Drafter Relationship Specialty Start Date End Date Magdalena Acosta MD [address] [place] [address] PCP - General Family Medicine 02/05/23 documented as of this encounter
--- OUTSIDE RECORDS SUMMARY | 2024-07-15 12:28 | XMS_ITS | Encounter Summary ---
Author Organization [facility] Address [facility] [place] [address] Care Team Providers Care Sports Doctor Name Role Phone Magdalena Acosta MD Primary Care Provider [phone] Reason for Visit * Reason Comments Follow-up Encounter Details Date Type Department Care Team (Late st Contact Info) Description 06/23/2024 2:00 PM EST Office Visit Hematology [place] [address] Markel Borjas MD [facility] [address] HEMATOLOGY [place] [address] Chronic idiopathic neutropenia; Anemia, unspecified type Social [...] 06/23/2024 2:00 PM EST Hematology Outpatient [facility] Hematology Outpatient Consult Note CC: 60 [...] TOUCH PREP, CLOT SECTION, CORE BIOPSY); [OSR# [id number], COLLECTED 06/23/2016, 19 SLIDES]: 1. 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 hydrOXYchloroQUINE (Plaquenil) 200 mg [...] 11/02/2024 12:00 PM EDT Appointment [place] [address] 11/02/2024 1:00 PM EDT Office Visit [place] [address] Magdalena Peralta MD [facility] [place] [address] 03/01/2025 4:15 PM EDT Office Visit Dermatology at [place] [address] [place] [address] Marek Bonilla MD [address] [place] [address] documented as of this encounter Visit Diagnoses Diagnosis Chronic idiopathic neutropenia Other neutropenia Anemia, unspecified type documented in this encounter Care Teams Sports Doctor Relationship Specialty Start Date End Date Magdalena Acosta MD [address] [place] [address] PCP - General Family Medicine 02/05/23 documented as of this encounter
--- OUTSIDE RECORDS SUMMARY | 2024-07-15 12:28 | XMS_ITS | Encounter Summary ---
[place] [address] Care Team Providers Care Sash Clamp Operator Name Role Phone Magdalena Acosta MD Primary Care Provider [phone] Encounter Details Date Type Department Care Team (Late st Contact Info) Description 05/18/2024 Interpretation Only [address] [address] Magdalena Acosta MD [address] [place], [place] [id number] Social History Tobacco Use Types Packs/Day Years [...] 11/02/2024 12:00 PM EDT [place]oint[place] [address] 11/02/2024 1:00 PM EDT [place] [address] Magdalena Peralta MD [facility] [place] [address] 03/01/2025 4:15 PM EDT Office Visit Dermatology at [place] [address] [place] [address] Marek Bonilla MD [address], [place] [address] documented as of this encounter Procedures Procedure Name Priority Date/Time Associated Diagnosis Comments DXA CENTRAL SPINE, HIP, AND/OR WHOLE BODY (GENERIC) Routine 05/18/2024 11:21 AM EDT documented in this encounter Results * DXA Central Spine, Hip, and/or Whole Body (Generic) (05/18/2024 11:21 AM EDT) PT CLASS O RAD ADMITDTTM [id number] [facility] PT [facility] INFO [id number]^Dave ^Magdalena RAD EXAM DESC XDXAC^BD Bone Density DEXA Axial Skeleton^RIS [facility] WORKSTATION ID RADDRIMAGE [facility] Anatomical Region Laterality Modality C-spine, [...] questions please contact the health career development director that requested your imaging first. ? Electronically signed by: Rocael Villatoro MD, [facility] ([phone]), at 05/18/2024 11:25 AM Narrative 05/18/2024 11:25 [...] have questions please contactthe health career development director that requested your imaging first. Electronically signed by: Rocael Villatoro MD, [facility]([phone]), at 05/18/2024 11:25 AM Magdalena Acosta MD IMG DEXA ORDERABLES documented in this encounter Visit Diagnoses Not on filedocumented in this encounter Care Teams Sash Clamp Operator Relationship Specialty Start Date End Date Magdalena Acosta MD [address] [place] [address] PCP - General Family Medicine 02/05/23 documented as of this encounter
--- OUTSIDE RECORDS SUMMARY | 2024-07-15 12:28 | XMS_ITS | Referral Summary ---
Author Organization [facility] Address [address] [place] [address] Care Team Providers Care Traffic Signal Technician Name Role Phone Ashley Chavez Primary Care Provider [phone] Social History Tobacco Use Types Packs/Day Years [...] of Treatment Not on file Insurance MEDICARE [facility] Care Teams Traffic Signal Technician Relationship Specialty Start Date End Date Ashley Chavez ARNP [address] [place] [address] PCP - General 07/11/10
--- OUTSIDE RECORDS SUMMARY | 2024-07-15 12:28 | XMS_ITS | Encounter Summary ---
Author Organization [facility] Address [facility] [place] [address] Care Team Providers Care Russian Teacher Name Role Phone Magdalena Acosta MD Primary Care Provider [phone] Encounter Details Date Type Department Care Team (Late st Contact Info) Description 06/01/2024 10:00 AM EDT Office [place] [address] Magdalena Peralta MD [facility] [place] [address] Mixed connective tissue disease Social History Tobacco Use Types Packs/Day Years Used Date Smoking Tobacco: Never Smokeless Tobacco: Never Alcohol Use Standard Drinks/Week Comments No 0 (1 standard drink = 0.6 oz pur e alcohol) none [facility] Inpatient Questions Answer Date [...] through Care Everywhere. * Knee Arthritis: Exercises (Estonian) documented in this encounter Progress Notes * [...] 1:5120 speckled; VIC negative; Myositis panel with CHIEF GAUGER ab 149.1 (positive); Anti U1RNP IgG 119; [...] that osteoporosis is not an indication for middle or intermediate school principal systemic steroid therapy as it is not [...] Dr. Roma Peralta MD Rheumatology Fellow Pager: [phone] * Kuldeep Brandon MD - 06/01/2024 10:00 [...] and therapeutic plans. Kuldeep Brandon MD Staff Communication Manager documented in this encounter Plan of Treatment Upcoming Encounters Date Type Department Care Team (Late st Contact Info) Description 11/02/2024 12:00 PM EDT Appointment [place] [address] 11/02/2024 1:00 PM EDT Office [place] [address] Magdalena Peralta MD [facility] [place] [address] 03/01/2025 4:15 PM EDT Office Visit Dermatology at [address] [address] Marek Bonilla MD [address] [place] [address] Scheduled Orders Name Type Priority Associated Diagnoses Orde r Schedule Common Pulmonary Function Test PFT Routine Mixed connective tissue disease Expected: 10/31/2024, Expires: 06/01/2025 documented as of this encounter Visit Diagnoses Diagnosis Mixed connective tissue disease Other specified diffuse disease of connective tissue documented in this encounter Care Teams Russian Teacher Relationship Specialty Start Date End Date Magdalena Acosta MD [address] [place] [address] PCP - General Family Medicine 02/05/23 documented as of this encounter
--- OUTSIDE RECORDS SUMMARY | 2024-07-15 12:28 | XMS_ITS | Encounter Summary ---
Author Organization [facility] Address [address] [place] [address] Care Team Providers Care Grill Attendant Name Role Phone Unavailable Primary Care Provider Unavailabl e Encounter Details Date Type Department Care Team (Late st Contact Info) Description 03/24/2007 11:06 EDT - 03/24/2007 11:59 EDT Hospital Encounter [facility] - Other [address] [place] [address] Ashley Chavez ARNP [address] [place] [address] Discharge Disposition: Home or Self Care Social [...]
--- OUTSIDE RECORDS SUMMARY | 2024-07-15 12:28 | XMS_ITS | Encounter Summary ---
Author Organization [facility] Address [address] [place] [address] Care Team Providers Care Corporate Director Talent Assessment Name Role Phone Ashley Chavez Primary Care Provider [phone] Encounter Details Date Type Department Care Team (Late st Contact Info) Description 12/17/2021 Lab Requisition [facility] Pathology & Laboratory Medicine - [address] [id number] Outr Resulting Lab, Provider Social History Tobacco [...] Lyme Ab Negative Negative 12/18/2021 10:37 EDT [facility] Blood VENOUS BLOOD / Unknown 12/17/2021 13:30 EDT 12/17/2021 21:32 EDT us Provider Outr Resulting Lab IMMUNOLOGY AND SEROL OGY ORDERABLES Final Result Performing Organization Address [facility] Co de Phone Number [facility] [address] [place] [address] * (ABNORMAL) ANTI NUCLEAR AB (FRANCISCO), IFA (12/17/2021 13:30 EDT) FRANCISCO Interpretation Positive(A) Negative 12/18/2021 16:06 EDT [facility] Comment: For titers [...] Pattern 1 1:1280 Speckled 12/18/2021 16:06 EDT [facility] Blood VENOUS BLOOD / Unknown 12/17/2021 13:30 EDT 12/17/2021 21:32 EDT Narrative [facility] - 12/18/2021 16:06 EDT Results were obtained with the INOVA NOVA Lite HEp-2 FRANCISCO Kit by indirect immunofluorescence. us Provider Outr Resulting Lab IMMUNOLOGY AND SEROL OGY ORDERABLES Final Result Performing Organization Address [facility] Co de Phone Number [facility] [address] [place] [address] documented in this encounter Visit Diagnoses Not on filedocumented in this encounter Care Teams Corporate Director Talent Assessment Relationship Specialty Start Date End Date Ashley Chavez ARNP [address] [place], [place] [id number] PCP - General 07/11/10 documented as of this encounter
--- OUTSIDE RECORDS SUMMARY | 2024-07-15 12:28 | XMS_ITS | Encounter Summary ---
Author Organization [facility] Address [address] [place] [address] Care Team Providers Care Iron Installer Name Role Phone Scott, Ashley WILLIAM Primary Care Provider [phone] Encounter Details Date Type Department Care Team (Late st Contact Info) Description 06/23/[address] [facility] [phone] Matthew Acevedo, DO [address] [address] Social History Tobacco Use Types [...] ? PURNIMA THACKER ? Accession #: ? [id number] : ? 1955 (Age: 60) ??F ?Collect Date: ? 06/23/2016 Location: ? [facility] ? Receive Date: ? 06/24/2016 Provider: ? MATTHEW ACEVEDO DO Copy to: ?WINTER HANKINS FEED ADVISER MARIO ALBERTO GATES MD ? INTERPRETATION: Normal [...] Acevedo DO PATHOLOGY ORDERABLES Fi nal Result [facility] [address] [place] [address] * FLOW CYTOMETRY (06/23/2016 0:00 EST) Pathology Report: FLOW CYTOMETRY REPORT Reports generated via electronic interface contain original data; however they are lacking the format of the original report. Caution should be taken when reading/interpreting unformatted reports. Name: ? PURNIMA THACKER ? Accession #: ? [id number] : ? 1955 (Age: 60) ??F ?Collect Date: ? 06/23/2016 00:00 Location: ? [facility] ? Receive Date: ? 06/24/2016 08:00 Provider: ?MATTHEW KRISTINA DO Copy to: ?WINTER HANKINS FEED ADVISER MARIO ALBERTO RAOMS MD ? FINAL IMMUNOPHENOTYPIC INTERPRETATION: ? Bone marrow, flow cytometric analysis: -No immunophenotypic evidence of a clonal cell population. ??See comment. ? COMMENT: The results of flow cytometry show no immunophenotypic evidence of involvement by a clonal lymphoproliferative or myeloproliferative disorder. ??Correlation of these findings with morphologic and clinical data is essential. ??Please refer to pathology report number [id number] for morphologic details. ? Document reviewed and [...] the Department of Pathology and Laboratory Medicine, [place], [place] ??It has not been cleared or [...] ORDERABLES Fi nal Result Performing Organization Address City/State/[facility] Co de Phone Number [facility] [address] [place] [address] * BONE MARROW/HEMPATH CONSULT (06/23/2016 0:00 EST) Pathology Report: BONE MARROW REPORT Reports generated via electronic interface contain original data; however they are lacking the format of the original report. Caution should be taken when reading/interpreting unformatted reports. Name: ? ANDREW PURNIMA Magalie ? Accession #: ? [id number] : ? 1955 (Age: 60) ??F ?Collect Date: ? 06/23/2016 Location: ? [facility] ? Receive Date: ? 06/24/2016 Provider: ? MATTHEW ACEVEDO DO Copy to: ?WINTER HANKINS FEED ADVISER MARIO ALBERTO RAMOS MD ? DIAGNOSIS: Peripheral [...] #1: Aggregate biopsy length: 8 mm with spot remover trabeculae of lamellar bone, cellular bone marrow, [...] SEE ABOVE DISCUSSION Lambda (polyclonal, Dako) ??(B1): Chittenango (polyclonal, Dako) ??(B1): Biopsy (decalcified) #2: Aggregate biopsy length: 8 mm with spot remover trabeculae of lamellar bone, cellular bone marrow, [...] (M115, Leica) ??(B2): Lambda (polyclonal, Dako) ??(B2): Chittenango (polyclonal, Dako) ??(B2): NOTE: ??One or more [...] ? 1% Blasts ?1% Special Studies Cytogenetics ([id number]): Pending. Flow Cytometry ([id number]): No immunophenotypic evidence of a clonal cell population. ? End of Report [facility] 06/23/2016 06/24/2016 us Matthew Acevedo DO PATHOLOGY ORDERABLES Fi nal Result [facility] [address] [place] [address] documented in this encounter Visit Diagnoses Not on filedocumented in this encounter Care Teams Iron Installer Relationship Specialty Start Date End Date Ashley Chavez ARNP [address] [place] [address] PCP - General 07/11/10 documented as of this encounter
--- OUTSIDE RECORDS SUMMARY | 2024-07-15 12:28 | XMS_ITS | Encounter Summary ---
Author Organization [facility] Address [address] [place] [address] Care Team Providers Care Mailmaster Name Role Phone Scott, Ashley WILLIAM Primary Care Provider [phone] Encounter Details Date Type Department Care Team (Late st Contact Info) Description 12/23/2016 Results Only [facility]- [facility] [phone] Deborah Quiroga, COMPUTER SYSTEMS CONSULTANT [address] [place] [phone] Social History Tobacco Use Types Packs/Day [...] ? PURNIMA THACKER ? Accession #: ? [id number] ? : ? 1955 (Age: 61) ??F ?Collect Date: ? 12/23/2016 ? Location: ? [facility] ? Receive Date: ? 12/25/2016 ? Provider: DEBORAH QUIROGA GRITTING MACHINE OPERATOR Copy to: ? Final Report SPECIMEN ADEQUACY ? Satisfactory for Evaluation - transformation zone component present GENERAL CATEGORIZATION ? Negative for Intraepithelial Lesion or Malignancy ?? Last Menstrual Period: years Specimen/Source: ??Pap Test, Cervix, ThinPrep Imaging System with manual evaluation Document reviewed and electronically signed by: ? Monica Cason, [facility](ASCP) ? Report ??Date: 01/06/2017 09:11 HPV with Pap Test ? Date Ordered: ? 01/06/2017 ? Status: ?? Signed Out ?Date Complete: ? 01/07/2017 ? By: ??System Interface ? Date Reported: ? 01/07/2017 ? Interpretation RESULT: Negative for HPV. No E6 or E7 mRNA is detected from HPV types 16,18,31,33,35, 39,45,51,52,56,58, 59,66, and 68 by ruby on rails developer mediated amplification. Comments Document reviewed and electronically signed by: ? System Interface ? Report date: 01/07/2017 By the signature above, the attending physician certifies that he/she has personally conducted a gross and/or microscopic examination of the described specimens and rendered or confirmed the above diagnosis. End of Report [facility] 12/23/2016 12/25/2016 us Deborah Quiroga COMPUTER SYSTEMS CONSULTANT PATHOLOGY ORDERABLES Final Re sult [facility] [address] [place] [address] documented in this encounter Visit Diagnoses Not on filedocumented in this encounter Care Teams Mailmaster Relationship Specialty Start Date End Date Ashley Chavez ARNP [address] [place] [address] PCP - General 07/11/10 documented as of this encounter
--- OUTSIDE RECORDS SUMMARY | 2024-07-15 12:28 | XMS_ITS | Encounter Summary ---
[place] [address] Care Team Providers Care Automotive Fleet Supervisor Name Role Phone Magdalena Acosta MD Primary Care Provider [phone] Encounter Details Date Type Department Care Team (Late st Contact Info) Description 05/18/2024 Interpretation Only [address] [phone] Magdalena Acosta MD [address] [place], [place] [id number] Social History Tobacco Use Types Packs/Day Years [...] 11/02/2024 12:00 PM EDT [place]oint[place] [address] 11/02/2024 1:00 PM EDT Office [place] [address] Magdalena Peralta MD [facility] [address] [place] [address] 03/01/2025 4:15 PM EDT Office Visit Dermatology at [place] [address] [place] [phone] Marek Bonilla MD [address], [place] [address] documented as of this encounter Procedures Procedure Name Priority Date/Time Associated Diagnosis Comments MAMMO SCREENING CAD BILATERAL (CH) Routine 05/18/2024 11:21 AM EDT documented in this encounter Results * MAMMO SCREENING CAD BILATERAL (CH) (05/18/2024 11:21 AM EDT) PT CLASS O RAD ADMITDTTM [id number] RAD PT RAD INFO [id number]^Dave ^Magdalena RAD EXAM DESC MADDSCCH^MG Mammo Digital [...] questions please contact the health career technical supervisor that requested your imaging first. ? Electronically signed by: Rocael Villatoro MD, [facility] ([phone]), at 05/18/2024 3:[address] ??[address] Narrative 05/18/2024 3:05 PM EDT EXAMINATION: MG [...] have questions please contactthe health career technical supervisor that [place] [address] Magdalena Acosta MD PACS IMAGES documented in this encounter Visit Diagnoses Not on filedocumented in this encounter Care Teams Automotive Fleet Supervisor Relationship Specialty Start Date End Date Magdalena Acosta MD [address] [place] [address] PCP - General Family Medicine 02/05/23 documented as of this encounter
--- OUTSIDE RECORDS SUMMARY | 2024-07-15 12:28 | XMS_ITS | Encounter Summary ---
Author Organization [facility] Address [address] [place] [address] Care Team Providers Care Property Insurance Agent Name Role Phone Scott, Ashley WILLIAM Primary Care Provider [phone] Encounter Details Date Type Department Care Team (Late st Contact Info) Description 05/12/2019 Results Only [facility] [phone] Nadira Gregorio MD [address] [place] [phone] Social History Tobacco Use Types Packs/Day [...] ? PURNIMA THACKER ? Accession #: ? [id number] ? : ? 1955 (Age: 63) ??F ? Collect Date: ? 05/12/2019 ? Location: ? [facility] ? Receive Date: ? 05/12/2019 ? Provider: NADIRA GREGORIO MD Copy to: WINTER HANKINS INDIAN TRADER ? Final Pathologic Diagnosis: COLON, CECUM, POLYP, [...] 6:08 PM End of Report [facility] 05/12/2019 16:0 3 EDT 05/12/2019 16:03 EDT us Nadira Gregorio MD PATHOLOGY ORDERABLES Final Resul t [facility] [address] [place] [address] documented in this encounter Visit Diagnoses Not on filedocumented in this encounter Care Teams Property Insurance Agent Relationship Specialty Start Date End Date Ashley Chavez ARNP [address] [place] [address] PCP - General 12/10/10 documented as of this encounter
--- OUTSIDE RECORDS SUMMARY | 2024-07-15 12:28 | XMS_ITS | Encounter Summary ---
Author Organization [facility] Address [address] [place] [address] Care Team Providers Care Sleeping Bag Filler Name Role Phone Unavailable Primary Care Provider Unavailabl e Encounter Details Date Type Department Care Team (Late st Contact Info) Description 03/24/2007 Results Only [facility] Non-Invasive Cardiology - [facility] [address] [place], [place] [address] Ashley Chavez, WILLIAM [address] [place] [address] Social History Tobacco Use Types Packs/Day Years [...] ? PURNIMA THACKER ? Accession #: ? [id number] : ? 1955 (Age: 51) ??F ?Collect Date: ? 03/24/2007 Location: ? [facility] ? Receive Date: ? 03/28/2007 Provider: ?ASHLEY THOMAS Copy to: ? Specimen/Source: ?ThinPrep Pap Test, Endocervix, processed on [employer] ThinPrep Imaging System, with manual evaluation Last [...] ORDERABLES Final Res ult PAUL ARELLANO [address] [place] [address] documented in this encounter Visit Diagnoses Not on filedocumented in this encounter
--- OUTSIDE RECORDS SUMMARY | 2024-07-15 12:28 | XMS_ITS | Encounter Summary ---
Author Organization [facility] Address [address] [place] [address] Care Team Providers Care Logistics Analytics Manager Name Role Phone Scott, Ashley WILLIAM Primary Care Provider [phone] Encounter Details Date Type Department Care Team (Late st Contact Info) Description 03/21/2024 Lab Requisition [facility] Pathology & Laboratory Medicine - [address] [address] Consuelo Guerrero, DO [address] [place], [place] [address] Encounter for other general examination Social History [...] 13:00 EDT) LORY Negative 03/21/2024 22:31 EDT [facility] Blood VENOUS BLOOD / Unknown 03/21/2024 13:00 EDT 03/21/2024 21:51 EDT us Consuelo Guerrero DO BLOOD BANK TESTS Final Result Performing Organization Address City/State/[facility] Co de Phone Number [facility] [address] [place] [address] documented in this encounter Visit Diagnoses Diagnosis Encounter for other general examination documented in this encounter Care Teams Logistics Analytics Manager Relationship Specialty Start Date End Date Ahsley Chavez ARNP [address] [place] [address] PCP - General 07/11/10 documented as of this encounter
--- OUTSIDE RECORDS SUMMARY | 2024-07-15 12:28 | XMS_ITS | Encounter Summary ---
Author Organization [facility] Address [address] [place] [address] Care Team Providers Care Regeneration Operator Name Role Phone Unavailable Primary Care Provider Unavailabl e Encounter Details Date Type Department Care Team (Late st Contact Info) Description 06/29/2007 Results Only [facility] - [facility] [address] [place] [address] Sánchez Acevedo MD [address] [place] [address] Social History Tobacco Use Types Packs/Day Years [...] ? PURNIMA THACKER ? Accession #: ? [id number] ? : ? 1955 (Age: 51) ??F [...] covered by a smooth white serosa. ??Three eligibility services representative sections of the gallbladder are submitted in one cassette. ??(Sriram Scott)/[facility] End of Report [facility] 06/29/2007 06/29/2007 21: 23 EST us Sánchez Acevedo MD PATHOLOGY ORDERABLES Final Result Performing Organization Address City/State/[facility] Co de Phone Number PAUL [address] [address] documented in this encounter Visit Diagnoses Not on filedocumented in this encounter
--- OUTSIDE RECORDS SUMMARY | 2024-07-15 12:28 | XMS_ITS | Encounter Summary ---
Author Organization [facility] Address [address] [place] [address] Care Team Providers Care Client Finance Analyst Name Role Phone Ashley Chavez Primary Care Provider [phone] Encounter Details Date Type Department Care Team (Late st Contact Info) Description 04/29/2022 Lab Requisition [facility] Pathology & Laboratory Medicine - [address] [address] Outr Resulting Lab, Provider Social History Tobacco [...] ORDERABLES Final Result Performing Organization Address [facility] de Phone Number [facility] [address] [place] [address] * SSA ANTIBODIES BY DOMO (04/29/2022 7:51 [...] ORDERABLES Final Result Performing Organization Address [facility] de Phone Number [facility] [address] [place] [address] documented in this encounter Visit Diagnoses Not on filedocumented in this encounter Care Teams Client Finance Analyst Relationship Specialty Start Date End Date Ashley Chavez ARNP [address] [place] [address] PCP - General 07/11/10 documented as of this encounter
--- OUTSIDE RECORDS SUMMARY | 2024-07-15 12:29 | XMS_ITS | Encounter Summary ---
[place] [address] Care Team Providers Care Repair Clerk Name Role Phone Magdalena Acosta MD Primary Care Provider [phone] Encounter Details Date Type Department Care Team (Latest Contact Info) Description 07/08/2023 12:35 PM EST Laboratory Appointment Lab [address] [place] [address] S/P TAVR (transcatheter aortic valve [...] 11/02/2024 12:00 PM EDT [place] [address] 11/02/2024 1:00 PM EDT [place] [address] Magdalena Peralta MD [facility] [place] [address] 03/01/2025 4:15 PM EDT Office Visit Dermatology at [place] [address] [place] [address] Marek Bonilla MD [address] [place] [address] documented as of this encounter [...] 11:56 AM EST) Neutrophil % 73.2 % [facility] Neutrophil Absolute 3.40 1.70 - 6.10 x10(3)/mc L [facility] Lymph % 16.1 % [facility] Lymphocytes Abs 0.8(L) 0.9 - 3.2 x10(3)/mc L [facility] Monocyte % 9.7 % [facility] Monocyte Abs 0.4 0.3 - 0.9 x10(3)/mc L [facility] Eos % 0.4 % [facility] Eosinophils Abs 0.0 0.0 - 0.4 x10(3)/mc L [facility] Basophil % 0.4 % [facility] Baso Absolute 0.0 0.0 - 0.1 x10(3)/mc L [facility] Immature Gran % 0.20 % [facility] Comment: Immature granulocytes(IG's)percentage and absolute count will include metamyelocytes, myelocytes, and promyelocytes. Blood smears from CBCs yielding IG's will be scanned manually for concordance. If this scan disagrees with the automated IG or if promyelocytes are noted, a manual differential will be performed. Immature Gran Absolute 0.01 0.00 - 0.04 x10(3)/mc L [facility] Blood 07/08/2023 11:5 6 AM EST 07/08/2023 12:02 PM EST Narrative Resulting Agency Comment Spec In Lab Minh TOBAR HEMATOLOGY ORDERABLE S [facility] [place] [address] * (ABNORMAL) Hemogram (07/08/2023 11:56 AM EST) White Blood Cell 4.6 4.0 - 9.5 x10(3)/mc L [facility] Red Blood Cell 3.34(L) 4.00 - 5.21 x10(6)/[facility] Hemoglobin 11.0(L) 11.7 - 15.5 g/dL [facility] Hematocrit 33.2(L) 35.7 - 45.8 % [facility] Mean Cell Volume 99.4(H) 82.6 - 94.4 fL [facility] Mean Cell Hemoglobin 32.9(H) 27.1 - 32.0 pg [facility] Mean Cell Hemoglobin Concentration 33.1 31.7 - 35.0 g/dL [facility] Platelet 166 145 - 357 x10(3)/mc L [facility] RDW Standard Deviation 47.1(H) 37.0 - 46.0 fL [facility] RDW coefficient of variation 13.0 11.5 - 14.1 % [facility] Mean Platelet Volume 9.0 7.6 - 12.9 fL [facility] NRBC% auto 0.0 % [facility] NRBC Absolute 0.000 0.000 - 0.000 x10(3)/mc L [facility] Blood 07/08/2023 11:5 6 AM EST 07/08/2023 12:02 PM EST Narrative Resulting Agency Comment Spec In Lab Minh TOBAR HEMATOLOGY ORDERABLE S [facility] [place] [address] * (ABNORMAL) Comprehensive metabolic panel (non-fasting) (07/08/2023 11:56 AM EST) Glucose 93 65 - 199 mg/dL [facility] Comment:Diabetes: >=200 mg/d L plus symptoms Blood Urea Nitrogen 19(H) 8 - 18 mg/dL [facility] Creatinine 0.81 0.70 - 1.20 mg/dL [facility] Sodium 142 135 - 145 mmol/L [facility] Potassium 3.8 3.5 - 5.0 mmol/L [facility] Comment: Please note: ??Patients with WBC >100,000 may have falsely elevated Potassium levels. ??For accurate Potassium quantification in these patients send serum separator tube (gold top) for subsequent determinations. ??Contact the Clinical Chemistry Laboratory if there are any questions. Chloride 104 98 - 107 mmol/L [facility] Carbon Dioxide 26 22 - 31 mmol/L [facility] Anion Gap 12 5 - 15 mmol/L [facility] Calcium 10.2 8.5 - 10.5 mg/dL [facility] Protein, Total 7.4 6.1 - 8.0 g/dL [facility] Albumin 4.1 3.2 - 5.2 g/dL [facility] Aspartate Aminotransferase 24 0 - 30 unit/L [facility] Alanine Aminotransferase 12 0 - 30 unit/L [facility] Alkaline Phosphatase 93 35 - 105 unit/L [facility] Bilirubin, Total 0.3 0.2 - 1.3 mg/dL [facility] Est Glomerular Filtration Rate 80 >=60 mL/min/1. 73 m?? [facility] Comment: This patient's estimated GFR was [...] CHEMISTRY ORDERABLE S [facility] [place] [address] documented in this encounter Visit Diagnoses Diagnosis S/P TAVR (transcatheter aortic valve replacement) Severe aortic stenosis Aortic valve disorders documented in this encounter Care Teams Repair Clerk Relationship Specialty Start Date End Date Magdalena Acosta MD [address] [place] [address] PCP - General Family Medicine 02/05/23 documented as of this encounter
--- OUTSIDE RECORDS SUMMARY | 2024-07-15 12:29 | XMS_ITS | Encounter Summary ---
Author Organization [facility]ly [facility] [place] [address] Care Team Providers Care Crown And Bridge Technician Name Role Phone Magdalena Acosta MD Primary Care Provider [phone] Reason for Visit * Reason Comments Coronary Artery Disease Hypertension Aortic Stenosis Encounter Details Date Type Department Care Team (Latest Contact Info) Description 07/20/2023 4:40 PM EST TH Visit (TeleHealth) Cardiology at [address] [address] Jay Maza PA [facility] [place] [address] HFrEF (heart failure with reduced ejection fraction); [...] lieu of an in person office visit. Kiln Cleaner: Antelmo Sharma MD [place] [place] Maria Luz Mejia MD ([facility] cards) Problem List: [...] fraction I35.0 Mild coronary artery disease by [facility] 11/09/2022 I25.10 Heart failure [...] notable for coronary artery protection given low bhbsl-zp-jvstqylq distance. There was no obstruction post Valve [...] arms and wrists. Successful right transfemoral TAVR Bifuw-gz-Kukxo with a 23 mm Lai 3 THV. [...] leads Confirmed by MD Harshil, Haris Bell ([id number]) on 05/10/2023 8:11:46 AM Cardiac Cath 11/09/2022 [...] in chart review and direct patient contact. [id number] 0-5min 7980NCS6 6-10min 2674QUA0 11-15min 9584XFA1 16-20min x 6404JSY2 21-30min 9785NJV2 31-40min 7896NKL8 40+ min Jay Maza PA-C Interventional Cardiology [facility] Pager [phone] documented in this encounter Plan of Treatment Upcoming Encounters Date Type Department Care Team (Late st Contact Info) Description 11/02/2024 12:00 PM EDT [place] [address] 11/02/2024 1:00 PM EDT Office [place] [address] Magdalena Peralta MD [facility] [place] [address] 03/01/2025 4:15 PM EDT Office Visit Dermatology at [place] [address] [place] [address] Marek Bonilla MD [address] [place] [address] documented as of this encounter Visit Diagnoses Diagnosis HFrEF (heart failure with reduced ejection fraction) Hypertension, unspecified type Aortic valve stenosis, etiology of cardiac valve disease unspecified documented in this encounter Care Teams Crown And Bridge Technician Relationship Specialty Start Date End Date Magdalena Acosta MD [address] [place] [address] PCP - General Family Medicine 02/05/23 documented as of this encounter
--- OUTSIDE RECORDS SUMMARY | 2024-07-15 12:29 | XMS_ITS | Encounter Summary ---
Author Organization [facility] [place] [address] Care Team Providers Care Target Setter Name Role Phone Magdalena Acosta MD Primary Care Provider [phone] Encounter Details Date Type Department Care Team [...] EDT Appointment [place] [address] 11/02/2024 1:00 PM EDT Office [place] [address] Magdalena Peralta MD [facility] [place] [address] 03/01/2025 4:15 PM EDT Office Visit Dermatology at [place] [address] [place] [address] Marek Bonilla MD [address] [place] [address] documented as of this encounter Visit Diagnoses Not on filedocumented in this encounter Care Teams Target Setter Relationship Specialty Start Date End Date Magdalena Acosta MD [address] [place] [address] PCP - General Family Medicine 02/05/23 documented as of this encounter
--- OUTSIDE RECORDS SUMMARY | 2024-07-15 12:29 | XMS_ITS | Encounter Summary ---
Author Organization [facility] [place] [address] Care Team Providers Care Petroleum Refinery Worker Name Role Phone Magdalena Acosta MD Primary Care Provider [phone] Encounter Details Date Type Department Care Team [...] 12:00 PM EDT Appointment [place] [address] 11/02/2024 1:00 PM EDT Office [place] [address] Magdalena Peralta MD [facility] [place] [address] 03/01/2025 4:15 PM EDT Office Visit Dermatology at [place] [address] [place] [address] Marek Bonilla MD [address] [place] [address] documented as of this encounter Visit Diagnoses Not on filedocumented in this encounter Care Teams Petroleum Refinery Worker Relationship Specialty Start Date End Date Magdlaena Acosta MD [address] [place] [address] PCP - General Family Medicine 02/05/23 documented as of this encounter
--- OUTSIDE RECORDS SUMMARY | 2024-07-15 12:29 | XMS_ITS | Encounter Summary ---
Author Organization [facility] [place] [address] Care Team Providers Care Construction Project Mgr Name Role Phone Magdalena Acosta MD Primary Care Provider [phone] Encounter Details Date Type Department Care Team (Late st Contact Info) Description 07/08/2023 10:15 AM EST Office Visit Cardiology at [address] [phone] Severe aortic stenosis Social History Tobacco Use [...] 11/02/2024 12:00 PM EDT Appointment [place] [address] 11/02/2024 1:00 PM EDT Office [place] [address] Magdalena Peralta MD [facility] [address] [place]HEUM[place] [address] 03/01/2025 4:15 PM EDT Office Visit Dermatology at [place] [address] [place] [address] Marek Bonilla MD [address] [place] [address] documented as of this encounter Procedures Procedure [...] (Bezet) 449 ms MUSE SYSTEM Calculated P [place] 66 degrees MUSE SYSTEM Calculated R [place] 60 degrees MUSE SYSTEM Calculated T [place] 53 degrees MUSE SYSTEM INTERPRETATION Normal sinus rhythm Minimal voltage criteria for LVH, may be normal variant ( Sokolow-Orozco ) ST & T wave abnormality, consider lateral ischemia ??vs. repolarization abnormality from LVH Abnormal ECG When compared with ECG of 13-MAY-2023 09:22, Premature ventricular complexes are no longer Present Minimal criteria for Septal infarct are no longer Present Confirmed by Maxx Best ([id number]) on 07/09/2023 10:07:22 AM MUSE SYSTEM 07/08/2023 10:2 7 AM EST 07/09/2023 10:07 AM EST Brody Kaplan APRN ECG ORDERABLES Gist SYSTEM documented in this encounter Visit Diagnoses Diagnosis Severe aortic stenosis Aortic valve disorders documented in this encounter Care Teams Construction Project Mgr Relationship Specialty Start Date End Date Magdalena Acosta MD [address] [place] [address] PCP - General Family Medicine 02/05/23 documented as of this encounter
--- OUTSIDE RECORDS SUMMARY | 2024-07-15 12:29 | XMS_ITS | Encounter Summary ---
Author Organization [facility] Address [facility] [place] [address] Care Team Providers Care Papier Mache Molder Name Role Phone Magdalena Acosta MD Primary Care Provider [phone] Encounter Details Date Type Department Care Team (Late st Contact Info) Description 07/29/2023 11:00 AM EST Office [place] [address] Magdalena Peralta MD [facility] [address] RHEUMATOLOGY [place] [address] Mixed connective tissue disease Social History Tobacco [...] 1:5120 speckled; VIC negative; Myositis panel with RAND MAKER ab 149.1 (positive); Anti U1RNP IgG [...] Viramontes. Magdalena Peralta MD Rheumatology Fellow Pager: [phone] * Kia Viramontes DO - 07/29/2023 11:00 AM EST ATTENDING ADDENDUM The patient's history was reviewed, and I interviewed and examined the patient with Dr. Peralta I agree with her summary, findings, and plan. documented in this encounter Plan of Treatment Upcoming Encounters Date Type Department Care Team (Late st Contact Info) Description 11/02/2024 12:00 PM EDT Appoint[place] [address] 11/02/2024 1:00 PM EDT Office [place] [address] Magdalena Peralta MD [facility] [address] RHEUMATOLOGY [place] [address] 03/01/2025 4:15 PM EDT Office Visit Dermatology at [place] [address] [place] [address] Marek Bonilla MD [address], [address] DERMATOLOGY [place], [place] [address] documented as of this encounter Results * [...] PFT FEV1/FVC Pre-BD Z-Score 0 COMPAS PFT ZCO84-28 Actual Pre-BD 2.41 % COMPAS PFT OBA22-80 Predicted 1.8 % COMPAS PFT HXR89-84 Pre-BD % of Predicted 134 % COMPAS PFT MFM17-74 Pre-BD Z-Score 0.81 COMPAS PFT DLCO Hb [...] tissue documented in this encounter Care Teams Papier Mache Molder Relationship Specialty Start Date End Date Magdalena Acosta MD [address] [place] [address] PCP - General Family Medicine 02/05/23 documented as of this encounter
--- OUTSIDE RECORDS SUMMARY | 2024-07-15 12:29 | XMS_ITS | Encounter Summary ---
[place] [address] Care Team Providers Care Clay Press Operator Name Role Phone Magdalena Acosta MD Primary Care Provider [phone] Reason for Visit * Reason Onset Date Comments Pre Procedure Call 03/01/2024 DAPT hold for EGD and colo? Encounter Details Date Type Department Care Team (Late st Contact Info) Description 03/01/2024 Telephone Cardiology at [address] [phone] Cynthia Monsalve RN Pre Procedure Call (DAPT [...] safe. Jay Message above left with Yenifer (care team coordinator scheduler), who would be leaving this note in patient's chart for providers to schedule patient. No further questions or needs at this time. This nurse stated, note will be placed regarding this call in our chart for patient. Kezia Whitney RN, BSN Ambulatory Cardiology [facility], [facility] [place] [phone] * Telephone Encounter - Cynthia Monsalve RN [...] 11/02/2024 12:00 PM EDT Appointment Pulmonology at [place] [address] 11/02/2024 1:00 PM EDT Office [place] [address] Magdalena Peralta MD [facility] DR [place] [address] 03/01/2025 4:15 PM EDT Office Visit Dermatology at [address] [place] [address] Marek oBnilla MD [address], [address] DERMATOLOGY [place], [place] [address] documented as of this encounter Visit Diagnoses Not on filedocumented in this encounter Care Teams Clay Press Operator Relationship Specialty Start Date End Date Magdalena Acosta MD [address] [place] [address] PCP - General Family Medicine 02/05/23 documented as of this encounter
--- OUTSIDE RECORDS SUMMARY | 2024-07-15 12:29 | XMS_ITS | Encounter Summary ---
Author Organization [facility] [place] [address] Care Team Providers Care Waiter/Waitress Cocktail Lounge Name Role Phone Magdalena Acosta MD Primary Care Provider [phone] Reason for Referral * Diagnostic Test (Routine) - Closed Specialty Diagnoses / Procedures Referred By Contac t Referred To Contact Cardiology Diagnoses S/P TAVR (transcatheter aortic valve replacement) Procedures Echocardiogram Transthoracic Vinod Juárez PA [facility] [place] [address] [facility] [place] [address] Referral ID Status Reason Start Date Expiration Date V isits Requested Visits Authorized [id number] Closed Specialty Service Requested 05/22/2023 05/21/2024 1 1 Reason for Visit * Diagnostic Test (Routine) - Closed Specialty Diagnoses / Procedures Referred By Contac t Referred To Contact Cardiology Diagnoses S/P TAVR (transcatheter aortic valve replacement) Procedures Echocardiogram Transthoracic Vinod Juárez PA [facility] [place] [address] [facility] [place] [address] Referral ID Status Reason Start Date Expiration Date V isits Requested Visits Authorized [id number] Closed Specialty Service Requested 05/22/2023 05/21/2024 1 1 Encounter Details Date Type Department Care Team (Latest Contact Info) Description 07/08/2023 10:19 AM EST - 07/08/2023 11:59 PM EST Hospital Encounter Non-[place]vasive [place] [address] Alirio Esparza MD S/P TAVR (transcatheter aortic [...] 11/02/2024 12:00 PM EDT [place]oint[place] [address] 11/02/2024 1:00 PM EDT Office [place] [address] Magdalena Peralta MD [facility] [place] [address] 03/01/2025 4:15 PM EDT Office Visit Dermatology at [place] [address] [place] [address] Marek Bonilla MD [address] [place] [address] documented as of this encounter Procedures Procedure [...] EST Narrative 07/08/2023 12:26 PM EST 1 [place] [address] ? Echocardiogram Report Name: ONESIMO THACKER ?Study Date: 07/08/2023 10:31 AMBP: 118/60 mmHg ? Patient Location: 4A : 1955 ? Height: 155 cm ? Account: [id number] Age: 67 yrs ? Weight: 74 kg Gender: Female ?BSA: 1.7 m2 Ordering Physician: ALIRIO ESPARZA Referring Physician: VINOD JUÁREZ Performed By: Felicia Norris RDCS Reason For Study: S/P TAVR Exam Location: [facility]. Interpretation Summary Left ventricular systolic [...] no significant change (post-procedure). Procedure Limited - 50091. Doppler - 36582. Color Doppler - 57717. Satisfactory quality. This study is limited because [...] Note Lee Kincaid MD - 07/08/2023 1 [place] [address] Echocardiogram Report Name: ONESIMO THACKER Study Date: 310:31 AMBP: 118/60 mmHg Patient Location: : 1955 Height: 155 cm Account: [id number] Age: 67 yrs Weight: 74 kg Gender: Female BSA: 1.7 m2 Ordering Physician: ALIRIO ESPARZA Referring Physician: VINOD JUÁREZ Performed By: Felicia Norris RDCS Reason For Study: S/P TAVR Exam Location: [facility]. Interpretation Summary Left ventricular systolic [...] is nosignificant change (post-procedure). Procedure Limited - 46667. Doppler - 42020. Color Doppler - 95262. Satisfactoryquality. This study is limited because of [...] replacement) documented in this encounter Care Teams Waiter/Waitress Cocktail Lounge Relationship Specialty Start Date End Date Magdalena Acosta MD [address] [place] [address] PCP - General Family Medicine 02/05/23 documented as of this encounter
--- OUTSIDE RECORDS SUMMARY | 2024-07-15 12:29 | XMS_ITS | Encounter Summary ---
Author Organization [facility] [place] [address] Care Team Providers Care Plate Painter Name Role Phone Magdalena Acosta MD Primary Care Provider Reason for Referral * Diagnostic Test (Routine) - New Request Specialty Diagnoses / Procedures Referred By Contac t Referred To Contact Cardiology Diagnoses S/P TAVR (transcatheter aortic valve replacement) Procedures Echocardiogram Transthoracic Antelmo Sharma MD [facility] [place] [address] [facility] [place] [address] Referral ID Status Reason Start Date Expiration Date Visits Requested Visits Authorized [id number] New Request Specialty Service Requested 12/16/2023 12/15/2024 1 1 Encounter Details Date Type Department Care Team (Late st Contact Info) Description 12/16/2023 Orders Only Cardiology at [address] [address] Antelmo Sharma MD [facility] [place] [address] S/P TAVR (transcatheter aortic valve [...] 11/02/2024 12:00 PM EDT Appointment [place] [address] 11/02/2024 1:00 PM EDT Office [place] [address] Magdalena Peralta MD [facility] [place] [address] 03/01/2025 4:15 PM EDT Office Visit Dermatology at [place] [address] [place] [address] Marek Bonilla MD [address] [facility] [place] [address] Scheduled Orders Name Type Priority Associated Diagnoses Order Schedule Echocardiogram Transthoracic Echocardiography Routine S/P TAVR (transcatheter aortic valve replacement) Expected: 12/16/2023 (Approximate), Expires: 06/17/2024 EKG 12 Lead ECG Routine S/P TAVR (transcatheter aortic valve replacement) Expected: 12/16/2023 (Approximate), Expires: 06/17/2024 documented as of this encounter Visit Diagnoses Diagnosis S/P TAVR (transcatheter aortic valve replacement) documented in this encounter Care Teams Plate Painter Relationship Specialty Start Date End Date Magdalena Acosta MD [address] [place] [address] PCP - General Family Medicine 02/05/23 documented as of this encounter
--- OUTSIDE RECORDS SUMMARY | 2024-07-15 12:29 | XMS_ITS | Encounter Summary ---
Author Organization [facility] [place] [address] Care Team Providers Care Inspector General Name Role Phone Magdalena Acosta MD Primary Care Provider [phone] Encounter Details Date Type Department Care Team [...] PM EDT Appointment [place] [address] 11/02/2024 1:00 PM EDT Office [place] [address] [facility] [place] [address] 03/01/2025 4:15 PM EDT Office Visit Dermatology at [place] [address] [place] [address] Marek Bonilla MD [address] [address] documented as of this encounter Visit Diagnoses Not on filedocumented in this encounter Care Teams Inspector General Relationship Specialty Start Date End Date Magdalena Acosta MD [address] [place] [address] PCP - General Family Medicine 02/05/23 documented as of this encounter
--- OUTSIDE RECORDS SUMMARY | 2024-07-15 12:29 | XMS_ITS | Encounter Summary ---
[place] [address] Care Team Providers Care Senior Consulting Manager Name Role Phone Magdalena Acosta MD Primary Care Provider [phone] Reason for Referral * Consultation (Routine) - Closed Specialty Diagnoses / Procedures Referred By Contac t Referred To Contact Hematology and Oncology Diagnoses Anemia, unspecified type Consuelo Guerrero DO [address] [place] [address] [address] [place] [address] [facility] Hem Onc [address] [place] [address] Referral ID Status Reason Start Date Expiration Date V isits Requested Visits Authorized [id number] Closed Consult, Test & Treat 04/11/2024 04/11/2025 1 1 Encounter Details Date Type Department Care Team (Late st Contact Info) Description 04/11/2024 Transcribe Orders eDH Incoming Referrals [phone] Consuelo Guerrero DO [address] [place] [address] [address] [place] [address] Anemia, unspecified type Social History [...] 11/02/2024 12:00 PM EDT Appointment [place] [address] 11/02/2024 1:00 PM EDT Office [place] [address] Magdalena Peralta MD [facility] DR [place] [address] 03/01/2025 4:15 PM EDT Office Visit Dermatology at [place] [address] [place] [address] Marek Bonilla MD [address] [facility] [place] [address] Scheduled Referrals Name Type Priority Associated Diagnoses Orde r Schedule Referral to Hematology and Oncology Outpatient Referral Routine Anemia, unspecified type Ordered: 04/11/2024 documented as of this encounter Visit Diagnoses Diagnosis Anemia, unspecified type documented in this encounter Care Teams Senior Consulting Manager Relationship Specialty Start Date End Date Magdalena Acosta MD [address] [place] [address] PCP - General Family Medicine 02/05/23 documented as of this encounter
--- OUTSIDE RECORDS SUMMARY | 2024-07-15 12:29 | XMS_ITS | Encounter Summary ---
Author Organization [facility] Address [facility] [place] [address] Care Team Providers Care Railroad Dispatcher Name Role Phone Magdalena Acosta MD Primary Care Provider [phone] Reason for Visit * Reason Comments Follow-up * Consultation (Routine) - Closed Specialty Diagnoses / Procedures Referred By Contac t Referred To Contact Hematology and Oncology Diagnoses Anemia, unspecified type Consuelo Guerrero, DO [address] [place] [address] [place] [address] [facility] Hem Onc [address] [place] [address] Referral ID Status Reason Start Date Expiration Date V isits Requested Visits Authorized [id number] Closed Consult, Test & Treat 04/11/2024 04/11/2025 1 1 Encounter Details Date Type Department Care Team (Late st Contact Info) Description 05/12/2024 10:00 AM EDT Office Visit Hematology [place] [address] Markel Borjas MD [facility] [address] [place] [address] Chronic idiopathic neutropenia Social History [...] TOUCH PREP, CLOT SECTION, CORE BIOPSY); [OSR# [id number], COLLECTED 06/23/2016, 19 SLIDES]: 1. 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 pantoprazole EC (Protonix) 40 [...] intact. Extremities: No edema. Labs: Hgb= 11.7 Olba=484 ANC= 2.5 Assessment: 60 year-old woman found [...] PM EDT Appointment [place] [phone] 11/02/2024 1:00 PM EDT Office [place] [address] Magdalena Peralta MD [facility] [place] [address] 03/01/2025 4:15 PM EDT Office Visit Dermatology at [place] [address] [place] [address] Marek Bonilla MD [address] [place] [address] documented as of this encounter Results * [...] EDT 05/12/2024 8:56 AM EDT Tova Russell DIRECTOR OF INSTRUCTIONAL TECHNOLOGY HEMATOLOGY ORDERABL ES [facility] [place] [address] * (ABNORMAL) Comprehensive metabolic panel Non-fasting (05/12/2024 8:56 AM EDT) Glucose 86 65 - 199 mg/dL 05/12/2024 11:[address] [facility] Comment:Glucose Concentratio n >=200 mg/dL plus symptoms is consistent with Diabetes Mellitus. Blood Urea Nitrogen 20(H) 8 - 18 mg/dL 05/12/2024 11:[address] [facility] Creatinine 0.88 0.70 - 1.20 mg/dL 05/12/2024 11:36 AM [facility] Sodium 145 135 - 145 mMol/L 05/12/2024 11:36 AM [facility] Potassium 4.6 3.5 - 5.0 mMol/L 05/12/2024 11:36 AM [facility] Chloride 109(H) 98 - 107 mMol/L 05/12/2024 11:36 AM [facility] Carbon Dioxide 21(L) 22 - 31 [...] EDT 05/12/2024 8:56 AM EDT Tova Russell DIRECTOR OF INSTRUCTIONAL TECHNOLOGY CHEMISTRY ORDERABLE S [facility] [place] [address] * (ABNORMAL) CBC (with Diff) (05/12/2024 8:56 AM EDT) White Blood Cell 3.47(L) 4.00 - 9.50 x10(3)/mc L 05/12/2024 9:[address] [facility] Red Blood Cell 3.31(L) 4.00 - 5.21 x10(6)/mc L 05/12/2024 9:32 AM [facility] Hemoglobin 11.1(L) 11.7 - 15.5 g/dL 05/12/2024 9:32 AM [facility] Hematocrit 33.2(L) 35.7 - 45.8 % 05/12/2024 9:32 AM [facility] Mean Cell Volume 100.3(H) 82.6 - 94.4 fL 05/12/2024 9:32 AM [facility] Mean Cell Hemoglobin 33.5(H) 27.1 - 32.0 pg 05/12/2024 9:32 AM [facility] Mean Cell Hemoglobin Concentration 33.4 31.7 - 35.0 g/dL 05/12/2024 9:32 AM [facility] Platelet 142(L) 145 - 357 x10(3)/mc L 05/12/2024 9:32 AM [facility] Mean Platelet Volume 8.7 7.6 - 12.9 fL 05/12/2024 9:32 AM [facility] RDW Standard Deviation 44.4 37.0 - 46.0 fL 05/12/2024 9:32 AM [facility] RDW coefficient of variation 12.0 11.5 - 14.1 % 05/12/2024 9:32 AM [facility] NRBC% auto 0.0 % 05/12/2024 9:32 [...] EDT 05/12/2024 8:56 AM EDT Tova Russell DIRECTOR OF INSTRUCTIONAL TECHNOLOGY HEMATOLOGY ORDERABL ES [facility] [place] [address] documented in this encounter Visit Diagnoses Diagnosis Chronic idiopathic neutropenia Other neutropenia documented in this encounter Care Teams Railroad Dispatcher Relationship Specialty Start Date End Date Magdalena Acosta MD [address] [place] [address] PCP - General Family Medicine 02/05/23 documented as of this encounter
--- OUTSIDE RECORDS SUMMARY | 2024-07-15 12:29 | XMS_ITS | Encounter Summary ---
Author Organization [facility] [place] [address] Care Team Providers Care Desktop Support Specialist Name Role Phone Magdalena Acosta MD Primary Care Provider [phone] Encounter Details Date Type Department Care Team [...] 11/02/2024 12:00 PM EDT Appointment [place] [phone] 11/02/2024 1:00 PM EDT Office [place] [phone] Magdalena Peralta MD [facility] [place] [address] 03/01/2025 4:15 PM EDT Office Visit Dermatology at [place] [address] [place] [address] Marek Bonilla MD [address], [address] [address] documented as of this encounter Visit Diagnoses Not on filedocumented in this encounter Care Teams Desktop Support Specialist Relationship Specialty Start Date End Date Magdalena Acosta MD [address] [place] [address] PCP - General Family Medicine 02/05/23 documented as of this encounter
--- OUTSIDE RECORDS SUMMARY | 2024-07-15 12:29 | XMS_ITS | Encounter Summary ---
Author Organization [facility] [place] [address] Care Team Providers Care Health Inspector Food Name Role Phone Magdalena Acosta MD Primary Care Provider [phone] Encounter Details Date Type Department Care Team [...] PM EDT Appointment [place] [phone] 11/02/2024 1:00 PM EDT Office [place] [phone] Magdalena Peralta MD [facility] [address] 03/01/2025 4:15 PM EDT Office Visit Dermatology at [place] [address] [place] [address] Marek Bonilla MD [address], [place] [address] documented as of this encounter Visit Diagnoses Not on filedocumented in this encounter Care Teams Health Inspector Food Relationship Specialty Start Date End Date Magdalena Acosta MD [address] [place] [address] PCP - General Family Medicine 02/05/23 documented as of this encounter
--- OUTSIDE RECORDS SUMMARY | 2024-07-15 12:29 | XMS_ITS | Encounter Summary ---
Author Organization [facility] [place] [address] Care Team Providers Care Fiberglass Quality Technician Name Role Phone Magdalena Acosta MD Primary Care Provider Encounter Details Date Type Department Care Team (Latest Contact Info) Description 05/12/2024 9:00 AM EDT Laboratory Appointment Lab at [facility] Hematology Oncology [address] [place] [phone] S/P TAVR (transcatheter aortic valve replacement); [...] 11/02/2024 12:00 PM EDT [place] [address] 11/02/2024 1:00 PM EDT Office [place] [address] Magdalena Peralta MD [facility] [place] [address] 03/01/2025 4:15 PM EDT Office Visit Dermatology at [place] [address] [place] [phone] Marek Bonilla MD [address] [place] [address] documented as of this encounter Procedures Procedure [...] - 2.50 % 05/12/2024 9:32 AM EDT [facility] Retic Abs # 0.0397 0.0200 - 0.1100 x10(6)/mcL 05/12/2024 9:32 AM EDT [facility] Immature Retic% 8.1 0.5 - 13.8 % 05/12/2024 9:32 AM EDT [facility] Reticulated Hgb 35.2 29.8 - 39.4 pg 05/12/2024 9:32 AM EDT [facility] Blood VENOUS BLOOD SPECIMEN / Unknown Venipuncture / Unknown 05/12/2024 8:56 AM EDT 05/12/2024 8:56 AM EDT Tova Russell MAMMOGRAPHER HEMATOLOGY ORDERABL ES [facility] [place] [address] * (ABNORMAL) Comprehensive metabolic panel Non-fasting (05/12/2024 [...] - 105 unit/L 05/12/2024 11:36 AM EDT [facility] Bilirubin, Total 0.2 <=1.3 mg/dL 05/12/2024 11:36 AM EDT [facility] Est Glomerular Filtration Rate - Female 72 mL/min/1. 73 m?? 05/12/2024 11:36 AM EDT [facility] Comment: This patient's [...] Fasting Status No 05/12/2024 11:36 AM EDT [facility] Blood VENOUS BLOOD SPECIMEN / Unknown Venipuncture / Unknown 05/12/2024 8:56 AM EDT 05/12/2024 8:56 AM EDT Tova Russell MAMMOGRAPHER CHEMISTRY ORDERABLE S [facility] [place] [address] * (ABNORMAL) CBC (with Diff) (05/12/2024 8:56 AM EDT) White Blood Cell 3.47(L) 4.00 - 9.50 x10(3)/mc L 05/12/2024 9:32 AM EDT [facility] Red Blood Cell 3.31(L) 4.00 - 5.21 x10(6)/mc L 05/12/2024 9:32 AM EDT [facility] Hemoglobin 11.1(L) 11.7 - 15.5 g/dL 05/12/2024 9:32 AM EDT [facility] Hematocrit 33.2(L) 35.7 - 45.8 [...] % 12.1 % 05/12/2024 9:32 AM EDT [facility] Monocyte Absolute 0.42 0.30 - 0.90 x10(3)/mc L 05/12/2024 9:32 AM EDT [facility] Eos % 0.6 % 05/12/2024 9:32 AM EDT [facility] Eos Absolute <0.04 0.00 - 0.40 x10(3)/mc L 05/12/2024 9:32 AM EDT [facility] Basophil % 0.6 % 05/12/2024 9:32 AM EDT [facility] Baso Absolute <0.04 0.00 - 0.10 x10(3)/mc L 05/12/2024 9:32 AM EDT [facility] Immature Gran % 0.3 % 9:32 AM EDT [facility] Immature Gran Absolute <0.04 0.00 - 0.04 x10(3)/mc L 05/12/2024 9:32 AM EDT [facility] Blood VENOUS BLOOD SPECIMEN / Unknown Venipuncture / Unknown 05/12/2024 8:56 AM EDT 05/12/2024 8:56 AM EDT Tova Russell MAMMOGRAPHER HEMATOLOGY ORDERABL ES [facility] [place] [address] documented in this encounter Visit Diagnoses Diagnosis S/P TAVR (transcatheter aortic valve replacement) Chronic idiopathic neutropenia Other neutropenia documented in this encounter Care Teams Fiberglass Quality Technician Relationship Specialty Start Date End Date Magdalena Acosta MD [address] [place] [address] PCP - General Family Medicine 02/05/23 documented as of this encounter
--- OUTSIDE RECORDS SUMMARY | 2024-07-15 12:29 | XMS_ITS | Encounter Summary ---
[place] [address] Care Team Providers Care Impregnator Helper Name Role Phone Magdalena Acosta MD Primary Care Provider [phone] Encounter Details Date Type Department Care Team (Latest Contact Info) Description 10/05/2023 10:52 AM EST - 10/05/2023 11:59 PM [facility] Hospital Encounter [place] [address] Mixed connective tissue disease Discharge Disposition: Home Social History Tobacco Use Types Packs/Day Years Used Date Smoking Tobacco: Never Smokeless Tobacco: Never Alcohol Use Standard Drinks/Week Comments No 0 (1 standard drink = 0.6 oz pur e alcohol) none [facility] Inpatient Questions Answer Date Recorded Does [...] topically 2 times daily as needed. 10/22/2022 [employer] Verio test strips Strip USE DAILY 01/03/2022 [employer] Delica Plus Lancet 33 gauge Misc [...] 11/02/2024 12:00 PM EDT Appointment [place] [address] 11/02/2024 1:00 PM EDT Office Visit [place] [address] Magdalena Peralta MD [facility] [address] RHEUMATOLOGY DEPT [place], [place] [phone] 03/01/2025 4:15 PM EDT Office Visit Dermatology at [place] [address] [address] Marek Bonilla MD [address], [place] [address] documented as of this encounter Procedures Procedure [...] PFT FEV1/FVC Pre-BD Z-Score 0 COMPAS PFT FBL40-84 Actual Pre-BD 2.41 % COMPAS PFT SNM11-92 Predicted 1.8 % COMPAS PFT VPR04-47 Pre-BD % of Predicted 134 % COMPAS PFT SBF57-46 Pre-BD Z-Score 0.81 COMPAS PFT DLCO Hb [...] tissue documented in this encounter Care Teams Impregnator Helper Relationship Specialty Start Date End Date Magdalena Acosta MD [address] [place] [address] PCP - General Family Medicine 02/05/23 documented as of this encounter
--- OUTSIDE RECORDS SUMMARY | 2024-07-15 12:29 | XMS_ITS | Encounter Summary ---
Author Organization [facility] [place] [address] Care Team Providers Care Boiling Tub Operator Name Role Phone Magdalena Acosta MD Primary Care Provider [phone] Encounter Details Date Type Department Care Team (Late st Contact Info) Description 12/02/2023 11:15 AM EDT Office [place] [address] Magdalena Peralta MD [facility] [place] [address] Mixed connective tissue disease Social History Tobacco [...] speckled; VIC negative; Myositis panel with ACCOUNT ANALYST ab 149.1 (positive); Anti U1RNP IgG [...] list of questions that she sent via [facility] ahead of her visit, which we [...] She has an appointment with her Automotive Service Advisor scheduled in January. (Dr Bonilla in [place]) ROS (positives in bold): Gen: no fevers, [...] I encouraged her to contact her Automotive Service Advisor to see if she could have her [...] Dr. Tanisha Peralta MD Rheumatology Fellow Pager: [phone] * Federico Yee MD - 12/02/2023 11:15 [...] 11/02/2024 12:00 PM EDT Appointment [place] [address] 11/02/2024 1:00 PM EDT Office Visit Rheumatology at [place] [phone] Magdalena Peralta MD [facility] [place] [address] 03/01/2025 4:15 PM EDT Office Visit Dermatology at [address] [address] Marek Bonilla MD [address] [place] [address], [facility] [place] [address] Scheduled Orders Name Type Priority Associated Diagnoses Orde r Schedule EKG 12 Lead ECG Routine Mixed connective tissue disease Expected: 12/02/2023, Expires: 06/03/2024 documented as of this encounter Visit Diagnoses Diagnosis Mixed connective tissue disease Other specified diffuse disease of connective tissue documented in this encounter Care Teams Boiling Tub Operator Relationship Specialty Start Date End Date Magdalena Acosta MD [address] [place] [address] PCP - General Family Medicine 02/05/23 documented as of this encounter
--- OUTSIDE RECORDS SUMMARY | 2024-07-15 12:29 | XMS_ITS | Encounter Summary ---
Author Organization [facility] [place] [address] Care Team Providers Care Eligibility Examiner Name Role Phone Magdalena Acosta MD Primary Care Provider [phone] Encounter Details Date Type Department Care Team (Late st Contact Info) Description 05/27/2023 Refill Cardiology at [address] [phone] Vero Marrero, RN Social History Tobacco Use [...] PM EDT TC to Nurse Sosa at [facility] to relay response from Jay [...] after that 75mg once daily. Jay Marrero [facility] [phone] * Telephone Encounter - Vero Marrero RN - 05/27/2023 1:46 PM EDT VM received from triage nurse Sosa at [facility] stating patient was seen today [...] more affordable option, if possible. Vero Marrero [facility] [address] documented in this encounter Plan of Treatment Upcoming Encounters Date Type Department Care Team (Late st Contact Info) Description 11/02/2024 12:00 PM EDT [place] [address] 11/02/2024 1:00 PM EDT [place] [address] Magdalena Peralta MD [facility] [place] [address] 03/01/2025 4:15 PM EDT Office Visit Dermatology at [address] [phone] Marek Bonilla MD [facility] [address] [place] [address] documented as of this encounter Visit Diagnoses Diagnosis Aortic valve stenosis, etiology of cardiac valve disease unspecified documented in this encounter Care Teams Eligibility Examiner Relationship Specialty Start Date End Date Magdalena Acosta MD [address] [place] [address] PCP - General Family Medicine 02/05/23 documented as of this encounter
--- OUTSIDE RECORDS SUMMARY | 2024-07-15 12:29 | XMS_ITS | Encounter Summary ---
Author Organization [facility] [place] [address] Care Team Providers Care Time Study Statistician Name Role Phone Magdalena Acosta MD Primary Care Provider [phone] Encounter Details Date Type Department Care Team [...] 11/02/2024 12:00 PM EDT [place] [address] 11/02/2024 1:00 PM EDT [place] [address] Magdalena Peralta MD [facility] [place] [address] 03/01/2025 4:15 PM EDT Office Visit Dermatology at [place] [address] [place] [address] Marek Bonilla MD [address], [place] [address] documented as of this encounter Visit Diagnoses Not on filedocumented in this encounter Care Teams Time Study Statistician Relationship Specialty Start Date End Date Magdalena Acosta MD [address] [place] [address] PCP - General Family Medicine 02/05/23 documented as of this encounter
--- OUTSIDE RECORDS SUMMARY | 2024-07-15 12:29 | XMS_ITS | Encounter Summary ---
Author Organization [facility] [address] Care Team Providers Care Beef Specialist Name Role Phone Magdalena Acosta MD Primary Care Provider [phone] Reason for Visit * Reason Comments Aortic Stenosis Coronary Artery Disease Hypertension Encounter Details Date Type Department Care Team (Latest Contact Info) Description 11/16/2023 11:40 AM EDT TH Visit (TeleHealth) Cardiology at [address] [address] Jay Maza PA [facility] [place] [address] Aortic valve stenosis, etiology of cardiac valve disease unspecified; Coronary artery disease, unspecified vessel or lesion type, unspecified whether angina present, unspecified whether habematolel or transplanted heart Social History Tobacco Use [...] from the original note were not included. [facility] Interventional Cardiology CARDIOLOGY TELE VISIT NOTE 11/16/23 Patient: Purnima Thacker Prior to the initiation of our discussion, the risks and benefits of tele health visits were discussed, and the patient consented verbally to this being a virtual telehealth visit in lieu of an in person office visit. CARDIOLOGISTS: Antelmo Sharma MD ([facility] Cards) Maria Luz Mejia MD ([facility] Cards - [facility] [...] fraction I35.0 Mild coronary artery disease by [facility] 11/09/2022 I25.10 Heart failure with reduced [...] notable for coronary artery protection given low [id number] distance. There was no obstruction post Valve [...] leads Confirmed by MD Harshil, Haris Bell ([id number]) on 05/10/2023 8:11:46 AM Cardiac Cath 11/09/2022 [...] in one year. EKATERINA Thompson Time spent: [id number] 0-5min [id number] 6-10min 0678MDM0 11-15min x [id number] 16-20min 0929WLE5 21-30min 8132TQZ8 31-40min [id number] 40+ min Jay Maza PA-C Interventional Cardiology [facility] Pager [phone] documented in this encounter Plan of Treatment Upcoming Encounters Date Type Department Care Team (Late st Contact Info) Description 11/02/2024 12:00 PM EDT Appointment [place] [address] 11/02/2024 1:00 PM EDT Office [place] [address] Magdalena Peralta MD [facility] [address] [place] [address] 03/01/2025 4:15 PM EDT Office Visit Dermatology at [place] [address] [place] [address] Marek Bonilla MD [address], [place] [address] documented as of this encounter Visit Diagnoses Diagnosis Aortic valve stenosis, etiology of cardiac valve disease unspecified Coronary artery disease, unspecified vessel or lesion type, unspecified whether angina present, unspecified whether habematolel or transplanted heart documented in this encounter Care Teams Beef Specialist Relationship Specialty Start Date End Date Magdalena Acosta MD [address] [place] [address] PCP - General Family Medicine 02/05/23 documented as of this encounter
--- OUTSIDE RECORDS SUMMARY | 2024-07-15 12:29 | XMS_ITS | Encounter Summary ---
[place] [address] Care Team Providers Care Distributor Sales Manager Name Role Phone Magdalena Acosta MD Primary Care Provider [phone] Reason for Visit * Reason Comments Annual Exam Encounter Details Date Type Department Care Team (Late st Contact Info) Description 02/22/2024 4:15 PM EDT Office Visit Dermatology at [address] [phone] Marek Bonilla MD [address] [facility] [facility] A DERMATOLOGY [place], [place] [phone] Seborrheic keratosis; Rosacea; Nevus Social History Tobacco [...] cutaneous and ocular 3. Previously told by newsroom intern that she had corneal tears from [...] PM EDT Appointment [place] [address] 11/02/2024 1:00 PM EDT Office [place] [address] Magdalena Peralta MD [facility] [place] [address] 03/01/2025 4:15 PM EDT Office Visit Dermatology at [place] [address] [place] [address] Marek Bonilla MD [address] [facility], [place] [address] documented as of this encounter Visit Diagnoses Diagnosis Seborrheic keratosis Other seborrheic keratosis Rosacea Nevus Benign neoplasm of skin, site unspecified documented in this encounter Care Teams Distributor Sales Manager Relationship Specialty Start Date End Date Magdalena Acosta MD [address] [place] [address] PCP - General Family Medicine 02/05/23 documented as of this encounter
--- OUTSIDE RECORDS SUMMARY | 2024-07-15 12:29 | XMS_ITS | Encounter Summary ---
[facility] [place] [address] Care Team Providers Care Pouch Making Machine Operator Name Role Phone Magdalena Acosta MD Primary Care Provider [phone] Encounter Details Date Type Department Care Team [...] PM EDT [place] [phone] 11/02/2024 1:00 PM EDT [place] [phone] Magdalena Peralta MD [facility] [place] [address] 03/01/2025 4:15 PM EDT Office Visit Dermatology at [place] [address] [place] [address] Marek Bonilla MD [address], [place] [address] documented as of this encounter Visit Diagnoses Not on filedocumented in this encounter Care Teams Pouch Making Machine Operator Relationship Specialty Start Date End Date Magdalena Acosta MD [address] [place] [address] PCP - General Family Medicine 02/05/23 documented as of this encounter
--- OUTSIDE RECORDS SUMMARY | 2024-07-15 12:30 | XMS_ITS | Encounter Summary ---
Author Organization [facility] [place] [address] Care Team Providers Care Lime Kiln Worker Helper Name Role Phone Magdalena Acosta MD Primary Care Provider [phone] Encounter Details Date Type Department Care Team [...] 11/02/2024 12:00 PM EDT Appointment [place] [phone] 11/02/2024 1:00 PM EDT Office [place] [phone] Magdalena Peralta MD [facility] [place] [address] 03/01/2025 4:15 PM EDT Office Visit Dermatology at [place] [address] [place] [address] Marek Bonilla MD [address], [place] [address] documented as of this encounter Visit Diagnoses Not on filedocumented in this encounter Care Teams Lime Kiln Worker Helper Relationship Specialty Start Date End Date Magdalena Acosta MD [address] [place] [address] PCP - General Family Medicine 02/05/23 documented as of this encounter
--- OUTSIDE RECORDS SUMMARY | 2024-07-15 12:30 | XMS_ITS | Encounter Summary ---
Author Organization [facility] [place] [address] Care Team Providers Care Burglar Alarm Installer Name Role Phone Magdalena Acosta MD Primary Care Provider [phone] Reason for Referral * Diagnostic Test (Routine) - Closed Specialty Diagnoses / Procedures Referred By Contac t Referred To Contact Cardiology Diagnoses S/P TAVR (transcatheter aortic valve replacement) Procedures Echocardiogram Transthoracic Vinod Juárez PA [facility] [place] [address] [facility] [place] [address] Referral ID Status Reason Start Date Expiration Date V isits Requested Visits Authorized [id number] Closed Specialty Service Requested 05/22/2023 05/21/2024 1 1 * Home Health Care (Routine) - Closed Specialty Diagnoses / Procedures Referred By Contac t Referred To Contact Diagnoses S/P TAVR (transcatheter aortic valve replacement) Alirio Hudson MD [facility] CARDIOTHORACIC SURGERY [address] [facility] & [address] [place] [address] Referral ID Status Reason Start Date Expiration Date V isits Requested Visits Authorized [id number] Closed Consult, Test & Treat 05/22/2023 11/18/2023 999 999 * Consultation (Routine) - Closed Specialty Diagnoses / Procedures Referred By Crispin maxwell Referred To Contact Cardiology Diagnoses S/P TAVR (transcatheter aortic valve replacement) Alirio Hudson MD [facility] [place] [address] Cardiac Rehab, [address] [place] [address] Referral ID Status Reason Start Date Expiration Date V isits Requested Visits Authorized [id number] Closed Consult, Test & Treat 05/22/2023 11/18/2023 36 36 * Diagnostic Test (Routine) - Closed Specialty Diagnoses / Procedures Referred By Crispin maxwell Referred To Contact Cardiology Diagnoses Aortic valve stenosis, etiology of cardiac valve disease unspecified Procedures Echocardiogram Transthoracic Transesophageal Echocardiogram (YUSRA) Radha Hollins MD [facility] [place] [address] [facility] [place] [address] Referral ID Status Reason Start Date Expiration Date V isits Requested Visits Authorized [id number] Closed Specialty Service Requested 05/11/2023 05/10/2024 1 1 Reason for Visit * Auth/Cert (Routine) Specialty Diagnoses / Procedures Referred By Crispin maxwell Referred To Contact Diagnoses Symptomatic severe aortic stenosis with low ejection fraction NSTEMI, CHF Enrique Chua MD [facility] [place] [address] [facility] Referral ID Status Reason Start Date Expiration Date Visits Re quested Visits Authorized [id number] 1 1 Encounter Details Date Type Department Care Team (Latest Contact Info) Description 05/08/2023 9:14 AM EDT - 05/22/2023 10:46 AM EDT Hospital Encounter Heart and Vascular Unit Level 4 [place] [address] Enrique Chua MD [facility] [place] [address] Juan Luis Gonzalez MD [facility] [place] [address] Radha Hollins MD [facility] [place] [address] Alirio Hudson MD S/P TAVR (transcatheter aortic valve replacement) (Primary Dx); Aortic valve stenosis, etiology of cardiac valve disease unspecified; Symptomatic severe aortic stenosis with low ejection fraction; Heart failure with reduced ejection fraction due to heart valve disease; Mild coronary artery disease by [facility] 11/09/2022; Mixed connective tissue disease; Neck [...] Patient Age: 67 y.o. Birthdate: 1955 Language: Wolof Race: White Ethnicity: Not nor Admit Date: 05/08/2023 Discharge Date: 05/22/2023 Attending Physician: Alirio Hudson MD Follow-up Recommendations for Providers: Please continue routine management of cardiovascular risk factors including blood pressure, lipids,glucose, etc. Please note any medication changes. Patient to follow up with PCP, Magdalena Acosta MD, or Primary Linux Systems Administrator, Maria Luz Mejia MD, in ~ 7-10 days. Patient to follow up with Health Information Clerk, Dr. Antelmo Sharma, in 2 weeks with an EKG, Echo, CBC, and CMP. Patient to follow up with Nephrology, their office to arrange. Ovde-Dcmybz-ib interval: After initial 30 day follow-up appointment , all TAVR patients will follow-up again in one year with an echo. 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 Secondary Diagnoses: Active Hospital Problems Diagnosis S/P TAVR (transcatheter aortic valve replacement) Cardiogenic shock Symptomatic severe aortic stenosis with low ejection fraction Mild coronary artery disease by [facility] 11/09/2022 Heart failure with reduced ejection [...] Placement Right 05/18/2023 Laure Ricks PA [facility] INTERVENTIONL RAD PRG CATH PLMT LEFT HEART CATH & ARTS W/INJ & ANGIO IMG S&I N/A 11/09/2022 CORONARY ANGIOGRAPHY; W [facility],POSSIBLE PCI (WRVU 5.6) performed by Mario Alberto Escobedo MD at [facility] CATH LABS PRG COMBINED RIGHT & LEFT HEART CATH W/INJ L VENTRICULOGRAPHY, IMG S&I N/A 05/12/2023 COMBINED RIGHT & LEFT HEART CATH,INC INJ FOR L VENTRICULOGRAPHY (WRVU 5.99) performed by Antelmo Sharma MD at [facility] CATH LABS PRO AORTOPLAS FOR SUPRAVALV STEN N/A 09/21/2016 @AORTOPLASTY FOR SUPRAVALVULAR STENOSIS (WRVU 29.33) performed by Alirio Hudson MD at [facility] MAIN OR PRO REPLACE AORTIC VALVE (TAVR/FEDERICO)PERC FEMORAL ARTERY APPROACH 05/12/2023 @TRANSCATHETER AORTIC VALVE REPLACEMENT (TAVR), PERCUTANEOUS FEMORAL (WRVU 22.47) performed by Alirio Hudson MD at [facility] CATH LABS PRO REPLACEMENT PROSTHETIC AORTIC VALVE OPEN W CARDIOPULMONARY BYPASS HOMOGRF/STENT N/A 09/21/2016 @REPLACE AORTIC VALVE, OPEN, W\CPB, W\PROSTHETIC VALVE (WRVU 41.32) performed by Alirio Hudson MD at [facility] MAIN [...] Major Procedures/Operations: 05/12/23: Successful right transfemoral TAVR Qrwqa-nq-Vlupw with a 23 mm Lai 3 THV. Left coronary protection with left main MINNA. Hospital Course: #Severe prosthetic s/p valve in valve TF TAVR #Low coronary heights s/p left main stent for coronary protection #Type 2 NSTEMI, present on arrival, resolved #Acute decompensated HFrEF #Cardiogenic shock #EVANS / Cardiorenal syndrome Purnima Thacker was admitted to [facility] on 05/08/2023 via the Cardiology Service [...] TAVR and she was brought to the pathology laboratory aides teacher the following morning where Drs. Alirio Hudson [...] if you have questions. Please call your Health Information Clerk's office if you have any discharge or drainage from your procedural sites. Your Health Information Clerk, Dr. Antelmo Sharma and/or the Pm Technician may be reached at . Antibiotic [...] of this card. Please refer to the Swedish Heart Association [...] low fat, low cholesterol, Swedish Heart Association Diet Driving: No restrictions. Shower/Bath: You may shower daily. No baths, soaking, or swimming for the first week. Wound care: Wash the sites daily with soap and rinse well, pat dry. Assess for any signs of infection such as increased redness, pain, warmth or drainage. Please call your food safety manager's office if you have any discharge or drainage from your procedural sites. If there is a lot of swelling, apply mamta wraps during the day and remove at bedtime. Elevate your legs when you are sitting. Home oxygen therapy: N/A Follow up appointments: Please schedule a follow-up appointment with your PCP, Magdalena Acosta MD, or Primary Linux Systems Administrator in ~ 7-10 days. You have a follow-up appointment with your Health Information Clerk, Dr. Antelmo Sharma, in 2 weeks with an EKG, Echo, and labs prior to your appointment. You will need follow-up with Nephrology, their office will arrange. Bobr-Eycqrd-wc interval: After initial 30 day follow-up appointment [...] [facility] [place]rive at: Drying Supervisor Area 5C [phone] 02/11/2024 2:00 PM Marek Bonilla MD Dermatology at [place] Arrive at: [facility] [address] [phone] Future Orders Complete By Expires Type and Screen Future Surgery, [facility] SAME DAY PROGRAM ONLY) [[id number] Custom] 05/11/2023 Process Instructions: This test is intended ONLY for patients with upcoming surgery for testing prior to the day of surgery obtained through the same day program (4V or SDP). For ALL OTHER PATIENTS, order a Type and Screen (SCD298) This order includes the physician order for an ABO Recheck if requested by the Blood Bank. Scheduling Instructions: Comments: Questions: Date of surgery: CBC (with Diff) [[id number] Custom] 06/05/2023 12/05/2023 Process Instructions: INCLUDES: WBC, RBC, Hgb, Hct, Platelets, RBC Indices and Differential Scheduling Instructions: Comments: Questions: Comprehensive metabolic panel (non-fasting) [LAB17 Custom] 06/05/2023 08/20/2023 Process Instructions: INCLUDES: Calcium, T Protein, Albumin, AST, ALT, Alk Phos, T Bili, BUN, Creat, GFR, Glucose, Lytes. Scheduling Instructions: Comments: Questions: Echocardiogram Transthoracic [67570 CPT(R)] 06/05/2023 12/05/2023 Process Instructions: Scheduling Instructions: Questions: Where will study be performed?: [facility] Does the patient have Congenital Heart Disease?: Does patient require sedation?: GA rationale: EKG 12 Lead [31359 CPT(R)] 06/05/2023 12/05/2023 Process Instructions: Scheduling Instructions: Questions: Which location will this be performed?: [place] Is a rhythm strip needed?: No [employer] Devices [EQ161 Custom] As directed Process Instructions: Scheduling Instructions: Questions: Device Needed: WALKER (E0143) Patient Height (cm): 154.9 cm (5' 0.98) Patient Weight: 75.4 kg (166 lb 3.2 oz) Diagnosis: Unsteady gait when walking Referral to Cardiac Rehab [FKN020 Custom] As directed Process Instructions: If no [...] FOR VNA SERVICES PATIENT'S LOCATION: Purnima Thacker [address] [place] [phone] (home) Fraud Investigator's Name: Self and brother Raymond In discussion with the attending physician, it is certified that this patient is under his/her careand that MD, or an OYSTER FARMER, MACHINE GRAINER, or PA who is working directly with him/her, had a bria-bv-wilc encounter that meets the physician gooh-no-rele encounter requirements with this patient on 05/22/2023. [...] for managing ADLs. HOME HEALTH CARE AGENCY: [facility]. [address] [place] [address] PHONE: [phone] FAX: [phone] Start of care: Ideally 24-48 hours after [...] MD [address] / [facility] [address] All VNA agencies which cover the area of patient's residence have been reviewed, either verbally joao writing, and patient has chosen the home health care agency noted. Questions: Disciplines Requested: Physical Therapy Occupational Therapy Discharge References/Attachments None Arrangements for VNA/home care: As above. (delete if no VNA) Signed: EKATERINA NAVARRETE [facility] Section of Cardiac Surgery Date: 05/22/2023 CC: Magdalena Acosta MD FairplainsMario Alberto MD [address] [place] [address] documented in this encounter Discharge Instructions * Patient Instructions* Vinod Juárez PA - 05/22/2023 9:32 AM EDT TAVR Discharge Instructions: Call your doctor if: You have a fever of greater than 101 degrees, shaking chills, if you develop redness or drainage from your procedure sites, or if you have questions. Please call your Health Information Clerk's office if you have any discharge or drainage from your procedural sites. Your Health Information Clerk, Dr. Antelmo Sharma and/or the Pm Technician may be reached at . Antibiotic [...] of this card. Please refer to the Swedish Heart Association [...] low fat, low cholesterol, Swedish Heart Association Diet Driving: No restrictions. Shower/Bath: You may shower daily. No baths, soaking, or swimming for the first week. Wound care: Wash the sites daily with soap and rinse well, pat dry. Assess for any signs of infection such as increased redness, pain, warmth or drainage. Please call your food safety manager's office if you have any discharge or drainage from your procedural sites. If there is a lot of swelling, apply mamta wraps during the day and remove at bedtime. Elevate your legs when you are sitting. Home oxygen therapy: N/A Follow up appointments: Please schedule a follow-up appointment with your PCP, Magdalena Acosta MD, or Primary Linux Systems Administrator in ~ 7-10 days. You have a follow-up appointment with your Health Information Clerk, Dr. Antelmo Sharma, in 2 weeks with an EKG, Echo, and labs prior to your appointment. You will need follow-up with Nephrology, their office will arrange. Uvzp-Cgndba-lk interval: After initial 30 day follow-up appointment [...] ins ( tef) Haven Ba, PT Pager: [phone] Physical Therapy Inpatient Rehabilitation Department * Nico [...] 0600 and on the weekends please page [phone]. * Jory Paniagua - 05/20/2023 3:52 PM [...] vomiting Last Bowel Movement: 05/20/23 Jory Paniagua State Assessed Properties Director * Tong Mike, OT - 05/20/2023 3:16 [...] Placement Right 05/18/2023 Laure Ricks PA [facility] INTERVENTIONL RAD PRG CATH PLMT LEFT HEART CATH & ARTS W/INJ & ANGIO IMG S&I N/A 11/09/2022 CORONARY ANGIOGRAPHY; W [facility],POSSIBLE PCI (WRVU 5.6) performed by Mario Alberto Escobedo MD at [facility] CATH LABS PRG COMBINED RIGHT & LEFT HEART CATH W/INJ L VENTRICULOGRAPHY, IMG S&I N/A 05/12/2023 COMBINED RIGHT & LEFT HEART CATH,INC INJ FOR L VENTRICULOGRAPHY (WRVU 5.99) performed by Antelmo Sharma MD at [facility] CATH LABS PRO AORTOPLAS FOR SUPRAVALV STEN N/A 09/21/2016 @AORTOPLASTY FOR SUPRAVALVULAR STENOSIS (WRVU 29.33) performed by Alirio Hudson MD at [facility] MAIN OR PRO REPLACE AORTIC VALVE (TAVR/FEDERICO)PERC FEMORAL ARTERY APPROACH 05/12/2023 @TRANSCATHETER AORTIC VALVE REPLACEMENT (TAVR), PERCUTANEOUS FEMORAL (WRVU 22.47) performed by Alirio Hudson MD at [facility] CATH LABS PRO REPLACEMENT PROSTHETIC AORTIC VALVE OPEN W CARDIOPULMONARY BYPASS HOMOGRF/STENT N/A 09/21/2016 @REPLACE AORTIC VALVE, OPEN, W\CPB, W\PROSTHETIC VALVE (WRVU 41.32) performed by Alirio Hudson MD at [facility] MAIN OR Social History: Patient lives alone. Home Setup: Pt lives on one level with tub shower and three steps to enter. DME: none used LOW PRESSURE FIRER Baseline ADL/Mobility: Independent with ADLs and IADLs. [...] awareness: WFL Vision & Perception: corrective lenses hydrology professor Communication: WFL Range of motion, strength, coordination: [...] Discharge planning. Total Minutes, Occupational Therapy: 28 ([id number]) OT Evaluation Code Rationale: Diagnosis & Pertinent Co-Morbidities affecting Plan of Care: see PMHx Occupational Profile & Client History: Brief Expanded Extensive x Assessment of Occupational Performance: 1-3 performance deficits 3-5 performance deficits x 5 + performance deficits Clinical Decision Making: Low Moderate High x Clinical decision making of moderate complexity using standardized patient assessment instrument and measurable assessment of functional outcome. Pager: [phone] TONG MIKE OT 05/20/2023 Occupational Therapy Rehabilitation [...] 0600 and on the weekends please page [phone]. * Rylie Rodriguez MD - 05/19/2023 3:59 [...] and plan. Cynthia Blackburn MD Nephrology Pager: [phone] * Diana Espino - 05/19/2023 1:49 PM EDT Sinker Puller Encounter Note Patient Name: Purnima Thacker : [id number] MR#: [id number] Admit Date: 05/08/2023 9:14 AM Hospital Day [...] as stated. Total Minutes, Physical Therapy: 38 ([id number]) Henrik Navarrete, LOW PRESSURE FIRER Pager: [phone] Physical Therapy Inpatient Rehabilitation Department * Nico [...] 0600 and on the weekends please page [phone]. * Laure Ricks PA - 05/19/2023 7:56 [...] Ricks PA-C Interventional Radiology IR Team Pager [phone] * Consuelo Espinoza RN - 05/18/2023 4:13 PM EDT ANGIO NURSING DATABASE Name: Purnima Thacker Date of : 1955 AGE: 67 y.o. Address: [address] [place] [phone] (home) Mobile: No relevant phone numbers on [...] I35.0 Mild coronary artery disease by [facility] 11/09/2022 I25.10 Heart failure with reduced [...] and plan. Cynthia Blackburn MD Nephrology Pager: [phone] * Magdalena Puri, MARKETING SERVICES REP - 05/18/2023 10:51 AM EDT Images from the original note were not included. [facility] [place] [address] [address] STRUCTURAL HEART DISEASE CONSULTATION NOTE PRIMARY CARE [...] stenosis. She is now status post TAVR Vybgw-bd-Wqcup with a 23 mm Lai 3 THV 05/12/[address] Sharma. Preliminary findings: Successful right transfemoral TAVR Pboxo-xz-Svqxe with a 23 mm Lai 3 THV. [...] ejection fraction Mild coronary artery disease by [facility] 11/09/2022 Heart failure with reduced ejection [...] stenosis. She is now status post TAVR Muoio-dq-Jopjw with a 23 mm Lai 3 THV 05/12/[address] Sharma. Janet TAVR case notable for coronary LAD protective MINNA. Status post TAVR, [facility] [...] Magdalena Puri APRN Structural Heart Team Pager [phone] Team Office Please see addendum by Dr. Sharma for final plan and recommendations Associated attestation - Antelmo Sharma MD - 05/19/2023 10:52 PM EDT I have reviewed Magdalena Puri APRN's above history and I agree with the details as written. The assessment and plan were formulated in discussion with me and I agree with them as documented. Antelmo Sharma MD Pager [phone] * Nico Palacios PA - 05/18/2023 8:13 [...] on the weekends please page [phone]. * Loli Hernandez, PT - 05/17/2023 5:27 [...] plan as stated. Time IN / OUT: 3438-3302 Total Minutes, Physical Therapy: 54 Billing Code: te-sx2, te-f, gait LOLI HERNANDEZ PT Pager: [phone] Physical Therapy Inpatient Rehabilitation Department * Cynthia [...] Well controlled. Cynthia Blackburn MD Nephrology Pager: [phone] * Maggie Mara, MARKETING SERVICES REP - 05/17/2023 8:26 AM EDT Cardiac Surgery [...] 0600 and on the weekends please page [phone]. * Guerda Del Valle - 05/16/2023 10:44 AM EDT Nutrition Services Note - Low Nutrition Acuity Purnima Thacker is a 67 y.o. female Reason for intervention: hospital day 9 Nutrition Plan: Continue diet order Encourage good PO Lasix and Zofran noted Added special serve: open containers Monitor weight Patient scheduled for a hospital day 9 nutrition evaluation. Wafer Polishing Worker met with pt at bedside. Pt reports that her appetite and PO has much improved since admission. Denies nausea/vomiting or trouble chewing/swallowing. Wafer Polishing Worker provided snack list but pt not interested in adding snacks at this time. Her only concern was that she is worried that she will eat too much which will cause too much pressure in her stomach. Wafer Polishing Worker assured pt and suggested eating smaller [...] Last Bowel Movement: 05/10/23 Guerda Del Valle State Assessed Properties Director * Vinod Juárez PA - 05/16/2023 [...] 0600 and on the weekends please page [phone]. * Michael Jeffers MD - 05/16/2023 8:11 AM EDT Images from the original note were not included. Hypertension-Nephrology Inpatient Follow-up Purnima Thacker [id number] 1955 ID: 67 y.o. old female seen [...] IRONSAT 12 (L) 05/16/2023 SFOLATE >20.0 07/03/2022 [id number] 07/03/2022 Lab Results Component Value Date [...] Dr. Ayoub. Please contact me at phone: [phone] or pager: [phone] with any questions. Michael Jeffers MD Nephrology [...] -Nephrology consulted, labs and renal US ordered -Lookeba removed, ambulated around the unit -bilateral pleural [...] 0600 and on the weekends please page [phone]. * Hortencia Cody MD - 05/15/2023 2:07 [...] not included. Hypertension-Nephrology Inpatient Follow-up Purnima Thacker [id number] 1955 ID: 67 y.o. old female seen [...] HGB 7.8 (L) 05/13/2023 SFOLATE >20.0 07/03/2022 [id number] 07/03/2022 Lab Results Component Value Date [...] Dr. Ayoub. Please contact me at phone: [phone] or pager: [phone] with any questions. iMchael Jeffers MD Nephrology & Hypertension Fellow Associated [...] last 720 hours. T/L/D Art ETT CVL [place] ASSESSMENT, MANAGEMENT, and DECISION MAKIN y.o. female [...] outlined inthis evaluation. HAVEN BA, PT Pager: [phone] Physical Therapy Inpatient Rehabilitation Department Time IN / OUT: 1019-3132 Total time: Total Minutes, Physical Therapy: 30 [...] 0600 and on the weekends please page [phone]. * Antelmo Sharma MD - 05/14/2023 7:56 AM EDT Images from the original note were not included. [facility] [place] [phone] STRUCTURAL HEART DISEASE CONSULTATION NOTE PRIMARY CARE [...] stenosis. She is now status post TAVR Aobdg-ar-Zdjde with a 23 mm Lai 3 THV 05/12/[address] Sharma. Preliminary findings: Successful right transfemoral TAVR Ktten-wm-Anbft with a 23 mm Lai 3 THV. [...] ejection fraction Mild coronary artery disease by [facility] 11/09/2022 Heart failure with reduced ejection [...] stenosis. She is now status post TAVR Odwlq-ge-Qyxtq with a 23 mm Lai 3 THV 05/12/[address] Sharma. Janet TAVR case notable for coronary LAD protective MINNA. Status post TAVR, the patient was transferred to [facility] for pressor and inotropic support. Pressors weaned overnight 05/12. Cardiac indices by thermodilution remained >3 with continued Milrinone 0.125 mcg/kg/min prior to PAC removal. EKG todayNSR with stable ID/QRS intervals. Hemoglobin slowly down-trending (8.2-> 7.8-> 7.2). [...] Brody Kaplan APRN Structural Heart Team Pager [phone] Team Office Please see addendum by Dr. [...] exposure. Nephrology consultationtoday. Antelmo Sharma MD Pager [phone] * Antelmo Cardenas RN - 05/14/2023 5:18 AM EDT Pt AOx4, complaining of mild/moderate generalized pain (states her Meloxicam is effective at home) currently refusing prn oxycodone. NAEON, hemodynamically stable on Milrinone, Maps >65, ST in [id number]'s down to NSR with frequent multifocal PVC's. [...] not included. [facility] [place] [address] [place] [address] STRUCTURAL HEART DISEASE PROGRESS NOTE PRIMARY CARE [...] stenosis. She is now status post TAVR Ylkps-ja-Rmunz with a 23 mm Lai 3 THV 05/12/[address] Sharma. Preliminary findings: Successful right transfemoral TAVR Wliev-me-Dbumz with a 23 mm Lai 3 THV. [...] or perforation. Interval Events: - Transferred to [facility] post- TAVR for pressor/inotropic support (Levo, [...] ejection fraction Mild coronary artery disease by [facility] 11/09/2022 Heart failure with reduced ejection [...] stenosis. She is now status post TAVR Wmjty-yd-Vigow with a 23 mm Lai 3 THV 05/12/[address] Sharma. Janet TAVR case notable for coronary LAD protective MINNA. Status post TAVR, the patient was transferred to [facility] for pressor and inotropic support. Pressors weaned overnight. Cardiac indices by thermodilution remain greater than 3 with continued Milrinone 0.125 mcg/kg/min. EKG today NSR with stable ID/QRS intervals. Hemoglobin 7.8 [...] Brody Kaplan APRN Structural Heart Team Pager [phone] Team Office Please see addendum by Dr. [...] DAPT moving forward. Antelmo Sharma MD Pager [phone] * Bonita Miguel PA - 05/13/2023 8:30 AM EDT Cardiac Surgery Progress Note Purnima Thacker is a 67 y.o. 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 PMH of s/p tissue AVR (2017), mixed connective tissue disease HTN, HLD, NICOLAS, diverticulosis, rosacea, essential tremor, and depression. 24h Events: From pathology laboratory aides teacher for above procedure Extubated at ~1600 to [...] soft b/l, no evidence of hematoma. Tubes/Lines/Drains: Lookeba, RIJ, A-line, Art, PIV Assessment/Plan: 67 y.o. [...] 0600 and on the weekends please page [phone]. * Onelia Schwartz MD - 05/12/2023 1:44 [...] ejection fraction Mild coronary artery disease by [facility] 11/09/2022 Heart failure with reduced ejection [...] FiO2 weaned to 40%. 1105: ABG 7.34/42/73/22 7600-8678: SBT performed and passed on these settings [...] PCP: Magdalena Acosta MD PCP phone number: [phone] Date of Admission: 05/08/2023 ( Hospital Day [...] 1447 PHART -- 7.34* 7.34* -- -- AQK1VNS -- 30* 30* -- -- PO2ART -- 72* 81* -- -- YMR7EBF -- 16.0* 15.7* -- -- LACTATEVEN 2.4* 2.7* 2.7* 4.8* 2.9* VBG (Venous Blood Gas) Recent Labs 05/12/23 0700 05/12/23 0318 05/12/2310505/11/23193905/11/23 1447 LACTATEVEN 2.4* 2.7* 2.7* 4.8* 2.9* Mixed Venous Sat Recent Labs 05/12/23 0508 05/12/23 0321 05/12/23 0114 05/12/23 0030 [id number] 30.7 32.7 37.3 25.1 Objective: Vitals Last [...] who have questions please contact the health tree care foreman that requested your imaging first. Electronically signed by: ALIX RUVALCABA MD, [facility] ([phone]), at 05/10/2023 1:[address] Cardiac for [...] who have questions please contact the health tree care foreman that requested your imaging first. Electronically signed by: Cullen Narayanan MD, [facility] ([phone]), at 05/11/2023 4:[address] Angiogram Abdomen [...] who have questions please contact the health tree care foreman that requested your imaging first. Electronically signed by: Eileen Gomes MD, [facility] ([phone]), at 05/11/2023 2:42 PM XR Chest One [...] who have questions please contact the health tree care foreman that requested your imaging first. Chest One [...] who have questions please contact the health tree care foreman that requested your imaging first. Assessment & [...] and inotrope. She is planned for a yistd-wf-oxlnc TAVR this morning, which should hopefully improve [...] of Cardiovascular Medicine [facility] Lipcoat Sprayermill tender warm up [facility] of Medicine at [facility] * Noreen Deutsch RN - [...] pulmonary edema. Patient seen and examined. Purnima Thcaker is a 67 y.o. female has issues that include: Active Hospital Problems Diagnosis Cardiogenic shock Symptomatic severe aortic stenosis with low ejection fraction Mild coronary artery disease by [facility] 11/09/2022 Heart failure with reduced ejection [...] 05/11/2023 4:11 PM EDT Reported off to SAFETY FIRE BOSS and pt transferred over in the bed for higher level of care. * Antelmo Sharma MD - 05/11/2023 9:45 AM EDT Images from the original note were not included. [facility] [place] [phone] STRUCTURAL HEART DISEASE CONSULTATION NOTE PRIMARY CARE [...] who had been referred for possible TAVR nursv-cw-awbqo evaluation. Her primary symptoms are of dyspnea [...] otherwise negative. Ms. Thacker is originally from [facility]. 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 [...] ejection fraction Mild coronary artery disease by [facility] 11/09/2022 Heart failure with reduced ejection [...] send to lab ([facility] Result Value Ref Range Lactate WB 3.1 (H) 0.5 - 2.2 mmol/L Heparin (unfractionated) Level Result Value Ref Range Heparin UFH Level 0.46 IU/mL Lactate, whole blood, send to lab ([facility]) Result Value Ref Range [...] leads Confirmed by MD Harshil, Enrique Bell ([id number]) on 05/10/2023 8:11:46 AM Cardiac Cath 11/09/2022 [...] alert Dr. Hudson of her inpatient status, happy primary cardiac surgeon. Based on recent clinic visit, tentative plan had been for TAVR JANET ferrera given her chronological age. Cardiac cath 11/09/2022 notable for non-obstructive coronary disease. TAVR CTAs planned for today. Will review her case with cardiac surgery to determine best timing and therapies for her valve intervention. Addendum 05/11/2023 6:48 PM Due to decompensating HFrEF, she was transferred to [facility] this afternoon for further management. TAVR CT imaging support for adequate ileofemoral access. Given her acute deterioration today, will planfor RTF TAVR on 05/12/2023. Brody KaplanANURAG Structural Heart Disease Pager [phone] Please see addendum by Dr. Sharma for [...] signed and dated. Antelmo Sharma MD Pager [phone] * Harini Lance MD - 05/11/2023 6:06 AM EDT Images from the original note were not included. Cardiology Progress Note Patient info: Name: Purnima Thacker : 1955 PCP: Magdalena Acosta MD PCP phone number: [phone] Date of Admission: 05/08/2023 ( Hospital Day [...] who have questions please contact the health tree care foreman that requested your imaging first. Electronically signed by: ALIX RUVALCABA MD, [facility] ([phone]), at 05/10/2023 1:25 PM TTE: 05/08 -Left [...] 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) Mild coronary artery disease by [facility] 11/09/2022 Hyperlipidemia, unspecified NICOLAS (obstructive sleep [...] PCP: Magdalena Acosta MD PCP phone number: [phone] Date of Admission: 05/08/2023 ( Hospital Day [...] 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) Mild coronary artery disease by [facility] 11/09/2022 Hyperlipidemia, unspecified NICOLAS (obstructive sleep [...] PCP: Magdalena Acosta MD PCP phone number: [phone] Date of Admission: 05/08/2023 ( Hospital Day [...] Gas) No results found for: PHART, PO2ART, WUZ7YCL, BNF9ZVP Microbiology: Microbiology Results (Last 30 days) No [...] 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) Mild coronary artery disease by [facility] 11/09/2022 Hyperlipidemia, unspecified NICOLAS (obstructive sleep [...] I35.0 Mild coronary artery disease by [facility] 11/09/2022 I25.10 Heart failure with reduced ejection fraction due to heart valve disease I50.20, I38 Cardiogenic shock R57.0 S/P TAVR (transcatheter aortic valve replacement) Z95.2 Past Medical History: Diagnosis Date Anemia Past Surgical History: Procedure Laterality Date PRG CATH PLMT LEFT HEART CATH & ARTS W/INJ & ANGIO IMG S&I N/A 11/09/2022 CORONARY ANGIOGRAPHY; W [facility],POSSIBLE PCI (WRVU 5.6) performed by Mario Alberto Escobedo MD at [facility] CATH LABS PRO AORTOPLAS FOR SUPRAVALV STEN N/A 09/21/2016 @AORTOPLASTY FOR SUPRAVALVULAR STENOSIS (WRVU 29.33) performed by Alirio Hudson MD at [facility] MAIN OR PRO REPLACEMENT PROSTHETIC AORTIC VALVE OPEN W CARDIOPULMONARY BYPASS HOMOGRF/STENT N/A 09/21/2016 @REPLACE AORTIC VALVE, OPEN, W\CPB, W\PROSTHETIC VALVE (WRVU 41.32) performed by Alirio Hudson MD at [facility] MAIN OR Social History and [...] I35.0 Mild coronary artery disease by [facility] 11/09/2022 I25.10 Heart failure with reduced ejection fraction due to heart valve disease I50.20, I38 Cardiogenic shock R57.0 S/P TAVR (transcatheter aortic valve replacement) Z95.2 Past Medical History: Diagnosis Date Anemia Past Surgical History: Procedure Laterality Date PRG CATH PLPA LEFT HEART CATH & ARTS W/INJ & ANGIO IMG S&I N/A 11/09/2022 CORONARY ANGIOGRAPHY; W [facility],POSSIBLE PCI (WRVU 5.6) performed by Mario Alberto Escobedo MD at [facility] CATH LABS PRO AORTOPLAS FOR SUPRAVALV STEN N/A 09/21/2016 @AORTOPLASTY FOR SUPRAVALVULAR STENOSIS (WRVU 29.33) performed by Alirio Hudson MD at [facility] MAIN OR PRO REPLACEMENT PROSTHETIC AORTIC VALVE OPEN W CARDIOPULMONARY BYPASS HOMOGRF/STENT N/A 09/21/2016 @REPLACE AORTIC VALVE, OPEN, W\CPB, W\PROSTHETIC VALVE (WRVU 41.32) performed by Alirio Hudson MD at [facility] MAIN OR Social History and [...] Hgb 10.5 CMP - Cr 1.1 BNP 43043 HsTrop 1358 Lactate 1.6 D-dimer 1183 Interval History Patient was admitted to [facility] due to concern on low BP [...] Klaudia Reid MD Internal Medicine PGY-1 Pager [phone], M1-S1 Service Associated attestation - Juan Luis Gonzalez MD - 05/08/2023 10:00 PM EDT Cardiology Attending Addendum Active Hospital Problems Diagnosis Symptomatic severe aortic stenosis with low ejection fraction Heart failure with reduced ejection fraction due to heart valve disease Mild coronary artery disease by [facility] 11/09/2022 Hyperlipidemia, unspecified History of aortic valve replacement Resolved Hospital Problems No resolved problems to display. I have interviewed and examined the patient, reviewed the available data, and have discussed my findings, assessment and plan with the patient and the team on admission to S2 service (from [facility] service) today. I agree with Dr. [...] PCP: Magdalena Acosta MD PCP phone number: [phone] Date of Admission: 05/08/2023 ( Hospital Day [...] Hgb 10.5 CMP - Cr 1.1 BNP 14559 HsTrop 1358 Lactate 1.6 D-dimer 1183 Vasoactive [...] Lincoln Sal MD Internal Medicine, PGY-[address] [id number] 05/08/23 12:06 PM Cardiology Staff [...] to the planned procedure. Hand Hygiene: The strategic communications manager did perform hand hygiene prior to [...] Successful arterial line placement. Crispin Timmons MD Pm Technician Associated attestation - Onelia Schwartz MD [...] (flow was non-pulsatile) and appearance of blood. Lookeba-Marily catheter was placed and locked at 55 [...] information for follow-up [facility] [address] [place] [address] Cardiac Rehab, [facility] [address] [place] [address] [place] [address] [facility], [facility] [address] [place] [address] Transportation: family or friend will provide *Brother [...] Type: *No Product type* / Secondary Insurance: [employer] [place] Prescription Coverage: Yes This plan was formulated with input from patient, family (please identify family/friend involved ifapplicable) and team. All are in agreement with plan. Aliza Martino MSN-Ed, RN ACM resident care manager rn Office of Care Management Pager #[phone] * Plan of Care - Favian Mckeon [...] Chaudhary RN - 05/21/2023 4:46 PM EDTSummary: [facility] referral OFFICE OF CARE MANAGEMENT [...] Type: *No Product type* / Secondary Insurance: [employer] [facility] Last Physical Therapy Recommendation: (Home with assist [...] needs. describing our affiliations within the [facility] and educate about their right to choose where referrals are sent. provide a list of Home Health Agencies / Durable Medical Equipment vendors which serve their preferred geographic area. They have requested referrals to: [facility] [address] [place] [address] [facility] [place] Note routed to a Carpenter who will communicate referrals to facilities and provide any required information. Transportation: family or friend will provide *Brother Raymond on Tuesday 05/22 at 1000 Barriers to discharge: Does not have home 22/02 assist available until tomorrow Tuesday 05/22 Plan going forward: Discharge home into the 22/02 home care of brother Raymond with [facility] and [facility] PT/OT services on Tuesday 05/22 [...] Attending: All Staff: Staff Role Juanita Almaguer Spindle Plumber Laure Ricks PA Physician Breast Surgeon Magdalena Rodriguez transactional paralegal Nurse Consuelo Espinoza RN Radiology Nurse Post-operative [...] Type: *No Product type* / Secondary Insurance: [employer] [place] Last Physical Therapy Recommendation: fdc facility, [...] Office of Care Management letter from the Pilot Boat Operator pertaining to rehab referrals. provide a letter describing our affiliations within the [facility] and educate about their right to choose where referrals are sent. provide the CMS Star Quality Rating handout. review the different levels of rehab including SNF, swing, and acute. provide a list of facilities within their preferred geographic area. request that they provide at least three choices for referral. They have requested referrals to: [facility] [address] [place] [address] [facility] ([facility]) [address] [place] [address] (Accepts pts only after exhausting all other local SNF options) [facility] ([facility]) ([facility]) [address] [place] [address] PHONE: [phone] FAX: [phone] Simin Benav[facility] [place] ([facility]) [facility]) [address] [place] [address] PHONE: [phone] FAX: [phone] Note routed to a Carpenter who will communicate referrals to facilities and [...] discharge. * Plan of Care - Leticia Priec RN - 05/14/2023 6:45 PM EDT Minimal UOP throughout shift. Nephrology consulted. Went on 2 walks around unit today with minimal fatigue/shortness of breath. * Consult Note - Malathi Muro MD - 05/14/2023 11:06 AM EDT Images from the original note were not included. [facility] NEPHROLOGY/HYPERTENSION CONSULT NOTE PATIENT: Purnima Thacker [...] in her course. She ultimately underwent a vghcy-to-ocvje procedure on and tolerated it well (see operative details). [facility] some [...] 1423 05/12/23 1105 PHART 7.39 7.37 7.34* GBL0HYL 33* 36 42 PO2ART 101 102 73* OHG4DQU 19.5* 20.4 22.1 LACTATEVEN 1.5 1.8 2.8* FWN1DUR 40 40 40 PFRATIOART2 252 255 182 VBG (Venous Blood Gas) Recent Labs 05/12/23 1557 05/12/23 1423 05/12/23 1105 LACTATEVEN 1.5 1.8 2.8* Mixed Venous Sat Recent Labs 05/12/23 1425 05/12/23 0508 05/12/23 0321 [id number] 59.9 30.7 32.7 LFT's: Recent Labs 05/14/23 0110 05/13/23 0115 05/12/23 0600 BILITOT 0.4 0.5 0.9 BILIDIR -- 0.3 -- ALBUMIN 3.6 3.0* 3.5 ALKPHOS 86 85 100 ALT 437* 903* 1,174* AST 319* 792* 1,435* No results found for: UPROTCREAT No results found for: TPROTEINPEP, ALBELECT No results found for: MICROALBUR, [id number] No results found for: HA1C Lab Results Component Value Date CALCIUM 8.5 05/14/2023 PHOS 4.7 (H) 05/08/2023 No results found for: 25OHVITD MICROBIOLOGY: ProcedureComponentValueUnitsDate/TimeUrine culture [[id number]]Collected: 05/11/231921Lab Status: Final resultSpecimen: Clean Catch UrineUpdated: [...] consulted for assessment if this patient needs FORMING MACHINE OPERATOR. Atthis time, we can likely hold off on FORMING MACHINE OPERATOR. Her volume status appears sufficient and her metabolic kanwal angements with mild acidosis is not too profound. Patient does not have significant uremic symptoms. We can hold off for today, but the patient is a high risk candidate for needing FORMING MACHINE OPERATOR in future daysespecially if her Cr curve trends the direction it is for the next several days. S/p Senmj-oe-Nikjd TF TAVR: Management per cardiology. On milrinone gtt. PLAN: - Please obtain following diagnostics: renal US, urinalysis, urine prot/Cr ratio, urine albumin/Cr ratio, CK, uric acid, serum osmol, daily VBGs - No acute indications for FORMING MACHINE OPERATOR/dialysis. We will keep close eye on Cr trend, volume status, and metabolics to ensure patient still does not need FORMING MACHINE OPERATOR as she ensues intrinsic renal [...] M.H.A., M.A. PGY-V Nephrology-Hypertension Fellow Page # [phone] [facility] [address] 2nd floor, Drying Supervisor [address] [place] [address] * Care Management - Mario Alberto Olmos [...] [facility] [place] Plan for discharge is: Home w/o [...] CV at 0945. Was intubated in the pathology laboratory aides teacher due to agitation. Maintained bedrest for 5 [...] Operative Note Patient Name: Purnima Thacker : [id number] MR#: [id number] Case Date: 05/12/2023 Surgeon: Surgeon(s) and Role: [...] procedure Note: Patient Name: Purnima Thacker : [id number] MR#: [id number] Case Date: 05/12/2023 Operators Surgeon: Surgeon(s) and [...] main with 4.0 x 30 mm Resolute Reeves Drug Eluting Stent Perclose x1 + Angio-seal 8 Fr x1, RFA Manual pressure, LFA Manual pressure, LFV Endotracheal intubation (performed by cardiac anesthesia) Preliminary findings: Successful right transfemoral TAVR Uturd-ce-Wieae with a 23 mm Lai 3 THV. [...] MD, M.Sc. Structural Heart Disease Fellow Pager :[phone] Antelmo Sahrma MD Pager [phone] * Op Note - Alirio Hudson MD - 05/12/2023 7:37 AM EDT Preop Diagnosis: Severe aortic stenosis, symptomatic. Postop Diagnosis: Same. Procedure: Transfemoral TAVR procedure with 23mm valve. Surgeon: Alirio Hudson M.D. Linux Systems Administrator: Danny CULP Procedure: The patient was taken to the pathology laboratory aides teacher. The patient had monitored anesthesia care. 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 [facility] [place] [address] [address] STRUCTURAL HEART DISEASE CONSULTATION NOTE PRIMARY CARE [...] who had been referred for possible TAVR ttdsb-xf-iddcn evaluation. Her primary symptoms are of dyspnea [...] otherwise negative. Ms. Thacker is originally from [facility] [place] [facility]. 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. Pt voices shortness of breath at [...] surrogate would be surrogate decision maker per [place] decision making law. (Only good for 180 days) Any patient receiving care in [place] must abide by [place] law. The hierarchy for surrogate decision making [...] Current DME: none Home Address confirmed as: [address] [place] [id number] Social & Family Supports: All names listed [...] Type: *No Product type* / Secondary Insurance: [employer] [facility] [place] ONLY if patient has Medicare A&B - Does this patient have secondary insurance?: Yes ; Prescription Coverage: Yes Preferred Pharmacy: updated to [facility] Status: Patient is a : No Primary Care Provider confirmed: Magdalena Acosta MD [phone] Patient/Caregiver Goals of Treatment: Potential Needs for [...] a 2 story home with 2 [facility]. Patient is independent with ADL's at [...] of care planning. Alie Bradshaw RN, CM Pager-[phone] * Plan of Care - Emily Lucero [...] PM EDT [place] [address] 11/02/2024 1:00 PM EDT Office [place] [address] Magdalena Peralta MD [facility] [place] [address] 03/01/2025 4:15 PM EDT Office Visit Dermatology at [place] [address] [facility] [place] [address] Marek Bonilla MD [address], [place] [address] Scheduled Referrals Name Type Priority Associated Diagnoses Orde r Schedule Referral to Cardiac Rehab Outpatient Referral Routine S/P TAVR (transcatheter aortic valve replacement) Ordered: 05/22/2023 Referral to [facility]patient Referral Routine S/P TAVR (transcatheter [...] Heart Cath W/Inj L Ventriculography, Img S&I ([id number]) 05/12/2023 7:37 AM EDT Aortic valve stenosis, [...] 12:15 PM EST) Pathologist [facility] EF 20 [facility] SYSTEM Anatomical Region Laterality Modality Cardiac Other 07/08/2023 10:3 1 AM EST Narrative 07/08/2023 12:26 PM EST [address] [place] [address] ? Echocardiogram Report Name: PURNIMA THACKER ?Study Date: 07/08/2023 10:31 AMBP: 118/60 mmHg ? Patient Location: : 1955 ? Height: 155 cm ? Account: [id number] Age: 67 yrs ? Weight: 74 kg [...] no significant change (post-procedure). Procedure Limited - 63082. Doppler - 69526. Color Doppler - 74585. Satisfactory quality. This study is limited because [...] Note Lee Kincaid MD - 07/08/2023 [address] [place] [address] Echocardiogram Report Name: PURNIMA THACKER Study Date: 0:31 AMBP: 118/60 mmHg Patient Location: : 1955 Height: 155 cm Account: [id number] Age: 67 yrs Weight: 74 kg Gender: [...] is nosignificant change (post-procedure). Procedure Limited - 23450. Doppler - 85709. Color Doppler - 19769. Satisfactoryquality. This study is limited because of [...] 0.70 - 1.20 mg/dL [facility] Sodium 142 135 - 145 [...] 8.5 - 10.5 mg/dL [facility] Protein, Total 7.4 6.1 - 8.0 g/dL [facility] Albumin 4.1 3.2 - 5.2 g/dL [facility] Aspartate Aminotransferase 24 0 - 30 unit/L [facility] Alanine Aminotransferase 12 0 - 30 unit/L [facility] Alkaline Phosphatase 93 35 - [...] MD CHEMISTRY ORDERABLE S [facility] [place] [address] * (ABNORMAL) Basic Metabolic Panel (non-fasting) (05/22/2023 3:57 AM EDT) Glucose 88 65 - 199 mg/dL [facility] Comment:Diabetes: >=200 mg/d L plus symptoms Blood Urea Nitrogen 21(H) 8 - 18 mg/dL [facility] Creatinine 0.69(L) 0.70 - 1.20 mg/dL [facility] Sodium 136 135 - 145 mmol/L [facility] Potassium 3.6 3.5 - 5.0 mmol/L [facility] Comment: Please note: ??Patients with WBC >100,000 may have falsely elevated Potassium levels. ??For accurate Potassium quantification in these patients send serum separator tube (gold top) for subsequent determinations. ??Contact the Clinical Chemistry Laboratory if there are any questions. Chloride 102 98 - 107 mmol/L [facility] Carbon Dioxide 23 22 - 31 mmol/L [facility] Anion Gap 11 5 - 15 mmol/L [facility] Calcium 8.6 8.5 - 10.5 mg/dL [facility] Est Glomerular Filtration Rate 95 [...] OSBORN CHEMISTRY ORDERABL ES [facility] [place] [address] * (ABNORMAL) Basic Metabolic Panel (non-fasting) (05/21/2023 5:06 AM EDT) Pathologist [facility] Glucose 87 65 - 199 mg/dL [facility] Comment:Diabetes: >=200 mg/d L plus symptoms Blood Urea Nitrogen 25(H) 8 - 18 mg/dL [facility] Creatinine 0.84 0.70 - 1.20 mg/dL [facility] Sodium 136 135 - 145 mmol/L [facility] Potassium 3.6 3.5 - 5.0 [...] Carbon Dioxide 26 22 - 31 mmol/L [facility] Anion Gap 8 5 - 15 mmol/L [facility] Calcium 8.9 8.5 - 10.5 mg/dL [facility] Est Glomerular Filtration Rate 76 [...] Agency Comment Spec In Lab [facility] MARKETING SERVICES REP CHEMISTRY ORDERABL ES Performing Organization Address [facility] Co de Phone Number [facility] [place] [address] * Lavender Tube HOLD (05/20/2023 2:52 AM EDT) Lavender Hold Sample in lab. [facility] Blood Venous Draw / Unknown 05/20/2023 2:52 AM EDT 05/20/2023 3:04 AM EDT [facility] [place] MARKETING SERVICES REP HEMATOLOGY ORDERAB LES Performing Organization Address [facility] Co de Phone Number [facility] [place] [address] * (ABNORMAL) Basic Metabolic Panel (non-fasting) (05/20/2023 2:52 AM EDT) Glucose 152 65 - 199 mg/dL [facility] Comment:Diabetes: >=200 mg/d L plus symptoms Blood Urea Nitrogen 33(H) 8 - 18 mg/dL [facility] Creatinine 0.82 0.70 - 1.20 mg/dL [facility] Sodium 137 135 - 145 mmol/L [facility] Potassium 3.7 3.5 - 5.0 [...] mmol/L [facility] Anion Gap 16(H) 5 - 15 mmol/L [facility] Calcium 9.0 8.5 - 10.5 mg/dL [facility] Est Glomerular Filtration Rate 78 [...] Agency Comment Spec In Lab [facility] MARKETING [employer] REP CHEMISTRY ORDERABL ES Performing Organization Address [facility] Co de Phone Number [facility] [place] [address] * (ABNORMAL) Potassium (05/20/2023 2:52 AM EDT) Potassium 3.4(L) 3.5 - 5.0 mmol/L [facility] [...] Narrative Resulting Agency Comment Spec In Lab [facility] MARKETING SERVICES REP CHEMISTRY ORDERABL ES Performing Organization Address City/[facility] Co de Phone Number [facility] [place] [address] * XR Chest PA & Lateral (Generic) [...] who have questions please contact the health tree care foreman that requested your imaging first. ? Electronically signed by: Chyna Johnson MD, [facility] ??([phone]), at 05/19/2023 2:19 PM Narrative 05/19/2023 2:19 [...] patients who have questions please contactthe health tree care foreman that requested your imaging first. Electronically signed by: Chyna Johnson MD, [facility]([phone]), at 05/19/2023 2:19 PM Alirio Hudson MD IMG DX ORDERABLES * (ABNORMAL) Basic Metabolic Panel (non-fasting) (05/19/2023 5:49 AM EDT) Glucose 93 65 - 199 mg/dL [facility] Comment:Diabetes: >=200 mg/d L plus symptoms Blood Urea Nitrogen 45(H) 8 - 18 mg/dL [facility] Creatinine 1.02 0.70 - 1.20 mg/dL [facility] Sodium 138 135 - 145 mmol/L [facility] Potassium 3.9 3.5 - 5.0 mmol/L [facility] Comment: Please note: ??Patients with WBC >100,000 may have falsely elevated Potassium levels. ??For accurate Potassium quantification in these patients send serum separator tube (gold top) for subsequent determinations. ??Contact the Clinical Chemistry Laboratory if there are any questions. Chloride 102 98 - 107 mmol/L [facility] Carbon Dioxide 26 22 - 31 mmol/L [facility] Anion Gap 10 5 - 15 mmol/L [facility] Calcium 9.7 8.5 - 10.5 mg/dL [facility] Est Glomerular Filtration Rate 60 >=60 mL/min/1. 73 m?? [facility] Comment: This patient's [...] Agency Comment Spec In Lab Mara Serrano MARKETING SERVICES [place] [address] * IR Chest Tube Placement Right (05/18/2023 [...] - 18 mg/dL [facility] Comment:result rechecked-[facility] Creatinine 1.64(H) 0.70 - 1.20 mg/dL [facility] Comment:result rechecked-[facility] Sodium 137 135 - 145 mmol/L [facility] Potassium 3.7 3.5 - 5.0 mmol/L [facility] Comment: Please note: ??Patients with WBC >100,000 may have falsely elevated Potassium levels. ??For accurate Potassium quantification in these patients send serum separator tube (gold top) for subsequent determinations. ??Contact the Clinical Chemistry Laboratory if there are any questions. Chloride 100 98 - 107 mmol/L [facility] Carbon Dioxide 24 22 - 31 mmol/L [facility] Anion Gap 13 5 - 15 mmol/L [facility] Calcium 9.7 8.5 - 10.5 mg/dL [facility] Est Glomerular Filtration Rate 34(L) [...] Agency Comment Spec In Lab Mara Serrano MARKETING SERVICES REP CHEMISTRY ORDERABL ES [facility] [place] [address] * XR Chest PA & Lateral (Generic) [...] who have questions please contact the health tree care foreman that requested your imaging first. ? Narrative [...] patients who have questions please contactthe health tree care foreman that requested your imaging first. Electronically signed by: Ghassan Reyes MD, [facility]([phone]), at 05/17/2023 11:46 AM Alirio Hudson MD IMG DX ORDERABLES * (ABNORMAL) Comprehensive metabolic panel (non-fasting) (05/17/2023 4:35 AM EDT) Glucose 89 65 - 199 mg/dL [facility] Comment:Diabetes: >=200 mg/d L plus symptoms Blood Urea Nitrogen 97(H) 8 - 18 mg/dL [facility] Creatinine 2.97(H) 0.70 - 1.20 mg/dL [facility] Comment:result rechecked-OG Sodium 135 135 - 145 mmol/L [facility] Potassium 4.1 3.5 - 5.0 mmol/L [facility] Comment: Please note: ??Patients with WBC >100,000 may have falsely elevated Potassium levels. ??For accurate Potassium quantification in these patients send serum separator tube (gold top) for subsequent determinations. ??Contact the Clinical Chemistry Laboratory if there are any questions. Chloride 97(L) 98 - 107 mmol/L [facility] Carbon Dioxide 22 22 - 31 mmol/L [facility] Anion Gap 16(H) 5 - 15 mmol/L [facility] Calcium 9.6 8.5 - 10.5 mg/dL [facility] Protein, Total 6.5 6.1 - 8.0 g/dL [facility] Albumin 3.7 3.2 - 5.2 g/dL [facility] Aspartate Aminotransferase 58(H) 0 - 30 unit/L [facility] Alanine Aminotransferase 66(H) 0 - 30 unit/L [facility] Alkaline Phosphatase 86 35 - 105 unit/L [facility] Bilirubin, Total 0.6 0.2 - 1.3 mg/dL [facility] Est Glomerular Filtration Rate 17(L) [...] MD CHEMISTRY ORDERABLE S [facility] [place] [address] * Potassium (05/16/2023 11:15 PM EDT) Potassium [...] MD CHEMISTRY ORDERABLE S Performing Organization Address City/[facility]/ZIP Co de Phone Number [facility] [place] [address] * Magnesium (05/16/2023 5:22 PM EDT) Magnesium 0.96 0.69 - 1.07 mmol/L [facility] Blood 05/16/2023 5:22 PM EDT 05/16/2023 5:27 PM EDT Narrative Resulting Agency Comment Spec In Lab Alirio Hudson MD CHEMISTRY ORDERABLE S Performing Organization Address [facility]/ZIP Co de Phone Number [facility] [place] [address] * (ABNORMAL) Basic Metabolic Panel (non-fasting) (05/16/2023 5:22 PM EDT) Glucose 106 65 - 199 mg/dL [facility] Comment:Diabetes: >=200 mg/d L plus symptoms Blood Urea Nitrogen 103(H) 8 - 18 mg/dL [facility] Creatinine 3.91(H) 0.70 - 1.20 mg/dL [facility] Comment:result rechecked-imm Sodium 132(L) 135 - 145 mmol/L [facility] Potassium 3.6 3.5 - 5.0 mmol/L [facility] Comment: Please note: ??Patients with WBC >100,000 may have falsely elevated Potassium levels. ??For accurate Potassium quantification in these patients send serum separator tube (gold top) for subsequent determinations. ??Contact the Clinical Chemistry Laboratory if there are any questions. Chloride 92(L) 98 - 107 mmol/L [facility] Carbon Dioxide 22 22 - 31 mmol/L [facility] Anion Gap 18(H) 5 - 15 mmol/L [facility] Calcium 9.7 8.5 - 10.5 mg/dL [facility] Est Glomerular Filtration Rate 12(L) [...] MD CHEMISTRY ORDERABLE S [facility] [place] [address] * (ABNORMAL) Potassium (05/16/2023 11:43 AM EDT) [...] MD CHEMISTRY ORDERABLE S [facility] [place] [address] * (ABNORMAL) Ferritin (05/16/2023 4:41 AM EDT) Ferritin 1,813(H) 30 - 400 ng/mL [facility] Comment: Pediatric reference ranges not verified at [facility], interpret with caution. Reference ranges for females greater than 50 years of age approach values for men, i.e., 30-400 ng/mL. Blood 05/16/2023 4:41 AM EDT 05/16/2023 4:54 AM EDT Narrative Resulting Agency Comment Spec In Lab Kristopher Ayoub MD CHEMISTRY ORDERABLES Performing Organization Address City/[facility]/ZIP Co de Phone Number [facility] [place] [address] * (ABNORMAL) PTH (05/16/2023 4:41 AM EDT) Parathyroid Hormone 120(H) 15 - 65 pg/mL [facility] Blood 05/16/2023 4:41 AM EDT 05/16/2023 4:54 AM EDT Narrative Resulting Agency Comment Spec In Lab Kristopher Ayoub MD CHEMISTRY ORDERABLES Performing Organization Address City/[facility]/ZIP Co de Phone Number [facility] [place] [address] * Vitamin D, 25-Hydroxy (05/16/2023 4:41 AM EDT) Vitamin D Total 25 OH 33 21 - 100 ng/mL [facility] Vit D Interp Sufficient [facility] Blood 05/16/2023 4:41 AM EDT 05/16/2023 4:54 AM EDT Narrative Resulting Agency Comment Spec In Lab Kristopher Ayoub MD CHEMISTRY ORDERABLES Performing Organization Address City/[facility]/ZIP Co de Phone Number [facility] [place] [address] * (ABNORMAL) Blood Gas Venous ([facility]) (05/16/2023 4:22 AM EDT) pH, Venous 7.41 7.32 - 7.42 [facility] PCO2, Venous 32(L) 41 - 51 mmHg [facility] PO2, Venous 73(H) 25 - 40 mmHg [facility] Bicarbonate, Venous 19.6 mmol/L [facility] Base Excess, Venous -5.1 mmol/L [facility] Hgb Blood Gas 9.7(L) 11.7 - 15.5 g/dL [facility] Oxyhemoglobin, Venous 92.8 % [facility] Carboxyhemoglob in, Venous 0.1 % [facility] Comment: Nonsmokers: 0.5-1.5% COHB Smokers: Variable, but usually less than 10% Toxic: 20-30% COHB Lethal: Greater than 60% COHB Methemoglobin, Venous 0.3 <=1.5 % [facility] Na Whole Blood 130(L) 135 - 145 mmol/L [facility] K Whole Blood 3.7 3.5 - 5.0 mmol/L [facility] Comment: Please note: Patients with WBC >100,000 may have falsely elevated Potassium levels. Contact the Clinical Chemistry Laboratory if there are any questions. ICa Whole Blood 1.15 1.15 - 1.33 mmol/L [facility] Comment: Note: ??Total bilirubin higher than 20 mg/dL may lead to falsely low ionized calcium. CL Whole Blood 95(L) 98 - 107 mmol/L [facility] Gluc Whole Bld 82 65 - 199 mg/dL [facility] Comment:Diabetes: >=200 mg/d L plus symptoms Lactate WB 1.1 0.5 - 2.2 mmol/L [facility] Blood Gas Source Venous [facility] Blood Venous Draw / Unknown 05/16/2023 4:22 AM EDT 05/16/2023 4:31 AM EDT Narrative Resulting Agency Comment Spec In Lab Bonita TOBAR CHEMISTRY ORDERABLES [facility] [place] [address] * (ABNORMAL) Differential, Automated (05/16/2023 4:20 AM EDT) Pathologist [facility] Neutrophil % 84.1 % [facility] Neutrophil Absolute 6.22(H) 1.70 - 6.10 x10(3)/mc L [facility] Lymph % 5.8 % [facility] Lymphocytes Abs 0.4(L) 0.9 - 3.2 x10(3)/mc L [facility] Monocyte % 8.8 % [facility] Monocyte Abs 0.6 0.3 - 0.9 x10(3)/ L [facility] Eos % 0.4 % [facility] Eosinophils Abs 0.0 0.0 - 0.4 x10(3)/ L [facility] Basophil % 0.0 % [facility] Baso Absolute 0.0 0.0 - 0.1 x10(3)/ L [facility] Immature Gran % 0.90 % [facility] Comment: Immature granulocytes(IG's)percentage and absolute count will include metamyelocytes, myelocytes, and promyelocytes. Blood smears from CBCs yielding IG's will be scanned manually for concordance. If this scan disagrees with the automated IG or if promyelocytes are noted, a manual differential will be performed. Immature Gran Absolute 0.07(H) 0.00 - 0.04 x10(3)/ L [facility] Blood 05/16/2023 4:20 AM EDT 05/16/2023 4:29 AM EDT Narrative Resulting Agency Comment Spec In Lab James Agustin MD HEMATOLOGY ORDER JODIE [facility] [place] [address] * (ABNORMAL) Hemogram (05/16/2023 4:20 AM EDT) Pathologist [facility] White Blood Cell 7.4 4.0 - 9.5 x10(3)/mc L [facility] Red Blood Cell 2.40(L) 4.00 - 5.21 x10(6)/[facility] Hemoglobin 7.8(L) 11.7 - 15.5 g/dL [facility] Hematocrit 22.5(L) 35.7 - 45.8 % [facility] Mean Cell Volume 93.8 82.6 - 94.4 fL [facility] Mean Cell Hemoglobin 32.5(H) 27.1 - 32.0 pg [facility] Mean Cell Hemoglobin Concentration 34.7 31.7 - 35.0 g/dL [facility] Platelet 120(L) 145 - 357 x10(3)/mc L [facility] RDW Standard Deviation 42.9 37.0 - 46.0 fL [facility] RDW coefficient of variation 12.9 11.5 - 14.1 % [facility] Mean Platelet Volume 11.3 7.6 - 12.9 fL [facility] NRBC% auto 0.7 % [facility] NRBC Absolute 0.050(H) 0.000 - 0.000 x10(3)/mc L [facility] Blood 05/16/2023 4:20 AM EDT 05/16/2023 4:29 AM EDT Narrative Resulting Agency Comment Spec In Lab James Agustin MD HEMATOLOGY ORDER JODIE [facility] [place] [address] * (ABNORMAL) Basic Metabolic Panel (non-fasting) (05/16/2023 4:20 AM EDT) Glucose 89 65 - 199 mg/dL [facility] Comment:Diabetes: >=200 mg/d L plus symptoms Blood Urea Nitrogen 108(H) 8 - 18 mg/dL [facility] Creatinine 4.74(H) 0.70 - 1.20 mg/dL [facility] Comment:result rechecked-OLIV[facility] Sodium 132(L) 135 - 145 mmol/L [facility] Potassium 3.9 3.5 - 5.0 mmol/L [facility] Comment: Please note: ??Patients with WBC >100,000 may have falsely elevated Potassium levels. ??For accurate Potassium quantification in these patients send serum separator tube (gold top) for subsequent determinations. ??Contact the Clinical Chemistry Laboratory if there are any questions. Chloride 95(L) 98 - 107 mmol/L [facility] Carbon Dioxide 18(L) 22 - 31 mmol/L [facility] Anion Gap 19(H) 5 - 15 mmol/L [facility] Calcium 9.2 8.5 - 10.5 mg/dL [facility] Est Glomerular Filtration Rate 10(L) [...] MD CHEMISTRY ORDERABLE S Performing Organization Address City/[facility]/ZIP Co de Phone Number [facility] [place] [address] * (ABNORMAL) Iron and TIBC (05/16/2023 4:20 AM EDT) Iron 31 30 - 150 mcg/dL [facility] TIBC 259 250 - 450 mcg/dL [facility] Iron Saturation 12(L) 20 - 50 % [facility] Blood 05/16/2023 4:20 AM EDT 05/16/2023 4:29 AM EDT Narrative Resulting Agency Comment Spec In Lab Kristopher Ayoub MD CHEMISTRY ORDERABLES Performing Organization Address City/[facility]/ZIP Co de Phone Number [facility] [place] [address] * (ABNORMAL) Basic Metabolic Panel (non-fasting) (05/15/2023 12:50 AM EDT) Glucose 101 65 - 199 mg/dL [facility] Comment:Diabetes: >=200 mg/d L plus symptoms Blood Urea Nitrogen 109(H) 8 - 18 mg/dL [facility] Creatinine 5.62(H) 0.70 - 1.20 mg/dL [facility] Comment:result rechecked-[place] Sodium 131(L) 135 - 145 mmol/L [facility] Comment:result rechecked-[place] Potassium 3.7 3.5 - 5.0 mmol/L [facility] Comment: result rechecked-[place] Please note: ??Patients with WBC >100,000 may have falsely elevated Potassium levels. ??For accurate Potassium quantification in these patients send serum separator tube (gold top) for subsequent determinations. ??Contact the Clinical Chemistry Laboratory if there are any questions. Chloride 92(L) 98 - 107 mmol/L [facility] Comment:result rechecked-[place] Carbon Dioxide 18(L) 22 - 31 mmol/L [facility] Comment:result rechecked-[place] Anion Gap 21(H) 5 - 15 mmol/L [facility] Calcium 8.9 8.5 - 10.5 mg/dL [facility] Est Glomerular Filtration Rate 8(L) [...] MD CHEMISTRY ORDERABLE S [facility] [place] [address] * (ABNORMAL) Hemogram (05/15/2023 12:50 AM EDT) White Blood Cell 9.1 4.0 - 9.5 x10(3)/mc L [facility] Red Blood Cell 2.19(L) 4.00 - 5.21 x10(6)/mc L [facility] Hemoglobin 7.2(L) 11.7 - 15.5 g/dL [facility] Hematocrit 20.6(L) 35.7 - 45.8 % [facility] Mean Cell Volume 94.1 82.6 - 94.4 fL [facility] Mean Cell Hemoglobin 32.9(H) 27.1 - 32.0 pg [facility] Mean Cell Hemoglobin Concentration 35.0 31.7 - 35.0 g/dL [facility] Platelet 109(L) 145 - 357 x10(3)/mc L [facility] RDW Standard Deviation 43.6 37.0 - 46.0 fL [facility] RDW coefficient of variation 12.9 11.5 - 14.1 % [facility] Mean Platelet Volume 10.4 7.6 - 12.9 fL [facility] NRBC% auto 2.1 % [facility] NRBC Absolute 0.190(H) 0.000 - 0.000 x10(3)/ L [facility] Blood 05/15/2023 12:5 0 AM EDT 05/15/2023 12:52 AM EDT Narrative Resulting Agency Comment Spec In Lab Alirio Hudson MD HEMATOLOGY ORDERABL ES Performing Organization Address City/State/[facility] Co de Phone Number [facility] [place] [address] * (ABNORMAL) BLOOD GAS 2 VENOUS (05/15/2023 12:49 AM EDT) pH, Venous 7.33 7.32 - 7.42 [facility] PCO2, Venous 37(L) 41 - 51 mmHg [facility] PO2, Venous 34 25 - 40 mmHg [facility] Bicarbonate, Venous 19.1 mmol/L [facility] Base Excess, Venous -6.8 mmol/L [facility] Hgb Blood Gas 10.8(L) 11.7 - 15.5 g/dL [facility] Oxyhemoglobin, Venous 58.1 % [facility] Carboxyhemoglob in, Venous 0.3 % [facility] Comment: Nonsmokers: 0.5-1.5% COHB Smokers: Variable, but usually less than 10% Toxic: 20-30% COHB Lethal: Greater than 60% COHB Methemoglobin, Venous 0.6 <=1.5 % [facility] Na Whole Blood 136 135 - 145 mmol/L [facility] K Whole Blood 3.7 3.5 - 5.0 mmol/L [facility] Comment: Please note: Patients with WBC >100,000 may have falsely elevated Potassium levels. Contact the Clinical Chemistry Laboratory if there are any questions. ICa Whole Blood 1.12(L) 1.15 - 1.33 mmol/L [facility] Comment: Note: ??Total bilirubin higher than 20 mg/dL may lead to falsely low ionized calcium. CL Whole Blood 95(L) 98 - 107 mmol/L [facility] Gluc Whole Bld 101 65 - 199 mg/dL [facility] Comment:Diabetes: >=200 mg/d L plus symptoms Lactate WB 1.3 0.5 - 2.2 mmol/L [facility] Flow, Mike 1.0 LPM [facility] Blood Gas Source Venous [facility] Blood 05/15/2023 12:4 9 AM EDT 05/15/2023 12:49 AM EDT Alirio Hudson MD POINT OF CARE TEST ORDERABLES Performing Organization Address City/State/[facility] de Phone Number [facility] [place] [address] * US Retroperitoneal Complete (05/14/2023 3:53 PM [...] who have questions, please contact the health tree care foreman that requested your imaging first. ? Hayden Robledo, Staff Physician Electronically Signed Final Report ?? 05/14/2023 04:39 pm Narrative 05/14/2023 4:39 PM EDT Renal ? (Signed Final 05/14/2023 04:39 pm) PATIENT INFO: ID #: ? [id number] ?: ??[birth year] (67 yrs)(F) Name: ? PURNIMA THACKER ?Visit Date: 05/14/2023 03:44 pm PERFORMED BY: Attending: ?Meena CULP, Hayden Stafford Resident: ? Nell CULP, Anand August Performed By: ? Consuelo Tello RDMS Referred By: ?ALIRIO HUDSON Location: ? [place] SERVICE(S) PROVIDED: URETRO - Retroperitoneal Complete - [id number] ? [id number] INDICATIONS: [facility] COMPARISON: CT: Abdomen/Pelvis 05/11/23 RIGHT [...] 05/14/2023 04:39 pm) PATIENT INFO: ID #: [id number] : 55 (67 yrs)(F) Name: PURNIMA THACKER Visit Date: 05/14/2023 03:44 pm PERFORMED BY: Attending: Hayden Robledo MD Resident: Anand Camejo MD Performed By: Consuelo Tello RDMS Referred By: ALIRIO HUDSON Location: [place] SERVICE(S) PROVIDED: URETRO - Retroperitoneal Complete - [id number] INDICATIONS: [facility] COMPARISON: CT: Abdomen/Pelvis 05/11/23 RIGHT [...] who have questions, please contact the health tree care foreman that requested your imaging first. Hayden Robledo, Staff Physician Electronically Signed Final Report 05/14/2023 04:39 pm Alirio Hudson MD IMG US GEN ORDERABL ES * CK (05/14/2023 3:17 PM EDT) Creatine Kinase 123 0 - 160 unit/L [facility] Blood 05/14/2023 3:17 PM EDT 05/14/2023 3:31 PM EDT Narrative Resulting Agency Comment Spec In Lab Alirio Hudson MD CHEMISTRY ORDERABLE S Performing Organization Address City/[facility]/ZIP Co de Phone Number [facility] [place] [address] * (ABNORMAL) Uric acid (05/14/2023 3:17 PM EDT) Uric Acid 14.9(H) 2.5 - 6.5 mg/dL [facility] Blood 05/14/2023 3:17 PM EDT 05/14/2023 3:31 PM EDT Narrative Resulting Agency Comment Spec In Lab Alirio Hudson MD CHEMISTRY ORDERABLE S Performing Organization Address City/[facility]/ZIP Co de Phone Number [facility] [place] [address] * (ABNORMAL) Osmolality (05/14/2023 3:17 PM EDT) Osmolality 311(H) 275 - 295 mOsm/kg [facility] Blood 05/14/2023 3:17 PM EDT 05/14/2023 3:31 PM EDT Narrative Resulting Agency Comment Spec In Lab Alirio Hudson MD CHEMISTRY ORDERABLE S Performing Organization Address City/[facility]/[place] [address] * (ABNORMAL) Differential, Automated (05/14/2023 1:10 AM EDT) Neutrophil % 87.2 % [facility] Neutrophil Absolute 9.74(H) 1.70 - 6.10 x10(3)/mc L [facility] Lymph % 3.9 % [facility] Lymphocytes Abs 0.4(L) 0.9 - 3.2 x10(3)/mc L [facility] Monocyte % 7.9 % [facility] Monocyte Abs 0.9 0.3 - 0.9 x10(3)/mc L [facility] Eos % 0.0 % [facility] Eosinophils Abs 0.0 0.0 - 0.4 x10(3)/mc L [facility] Basophil % 0.1 % [facility] Baso Absolute 0.0 0.0 - 0.1 x10(3)/mc L [facility] Immature Gran % 0.90 % [facility] Comment: Immature granulocytes(IG's)percentage and absolute count will include metamyelocytes, myelocytes, and promyelocytes. Blood smears from CBCs yielding IG's will be scanned manually for concordance. If this scan disagrees with the automated IG or if promyelocytes are noted, a manual differential will be performed. Immature Gran Absolute 0.10(H) 0.00 - 0.04 x10(3)/mc L [facility] Blood 05/14/2023 1:10 AM EDT 05/14/2023 1:24 AM EDT Narrative Resulting Agency Comment Spec In Lab Bonita TOBAR HEMATOLOGY ORDERABLE S Performing Organization Address City/[facility]/ZIP Co de Phone Number [facility] [place] [address] * (ABNORMAL) Hemogram (05/14/2023 1:10 AM EDT) White Blood Cell 11.2(H) 4.0 - 9.5 x10(3)/mc L [facility] Red Blood Cell 2.19(L) 4.00 - 5.21 x10(6)/mc L [facility] Hemoglobin 7.2(L) 11.7 - 15.5 g/dL [facility] Hematocrit 20.3(L) 35.7 - 45.8 % [facility] [facility] Mean Cell Volume 92.7 82.6 - 94.4 fL [facility] Mean Cell Hemoglobin 32.9(H) 27.1 - 32.0 pg [facility] Mean Cell Hemoglobin Concentration 35.5(H) 31.7 - 35.0 g/dL [facility] Platelet 112(L) 145 - 357 x10(3)/mc L [facility] RDW Standard Deviation 41.4 37.0 - 46.0 fL [facility] RDW coefficient of variation 12.5 11.5 - 14.1 % [facility] Mean Platelet Volume 10.4 7.6 - 12.9 fL [facility] NRBC% auto 1.5 % [facility] NRBC Absolute 0.170(H) 0.000 - 0.000 x10(3)/mc L [facility] Blood 05/14/2023 1:10 AM EDT 05/14/2023 1:24 AM EDT Narrative Resulting Agency Comment Spec In Lab Bonita TOBAR HEMATOLOGY ORDERABLE S [facility] [place] [address] * (ABNORMAL) Comprehensive metabolic panel (non-fasting) (05/14/2023 1:10 AM EDT) Glucose 120 65 - 199 mg/dL [facility] Comment:Diabetes: >=200 mg/d L plus symptoms Blood Urea Nitrogen 98(H) 8 - 18 mg/dL [facility] Creatinine 4.80(H) 0.70 - 1.20 mg/dL [facility] Comment:result rechecked-ssc Sodium 132(L) 135 - 145 mmol/L [facility] Potassium 4.1 3.5 - 5.0 mmol/L [facility] Comment: Please note: ??Patients with WBC >100,000 may have falsely elevated Potassium levels. ??For accurate Potassium quantification in these patients send serum separator tube (gold top) for subsequent determinations. ??Contact the Clinical Chemistry Laboratory if there are any questions. Chloride 94(L) 98 - 107 mmol/L [facility] Carbon Dioxide 18(L) 22 - 31 mmol/L [facility] Anion Gap 20(H) 5 - 15 mmol/L [facility] Calcium 8.5 8.5 - 10.5 mg/dL [facility] Protein, Total 5.8(L) 6.1 - 8.0 g/dL [facility] Albumin 3.6 3.2 - 5.2 g/dL [facility] Aspartate Aminotransferase 319(H) 0 - 30 unit/L [facility] Alanine Aminotransferase 437(H) 0 - 30 unit/L [facility] Alkaline Phosphatase 86 35 - 105 unit/L [facility] Bilirubin, Total 0.4 0.2 - 1.3 mg/dL [facility] Est Glomerular Filtration Rate 9(L) [...] MD CHEMISTRY ORDERABLE S [facility] [place] [address] * APTT (05/13/2023 10:15 AM EDT) Partial Thromboplastin Time 27 25 - 37 sec [facility] Comment: The PTT is [...] Address [facility] de Phone Number [facility] [place] [address] * (ABNORMAL) Prothrombin Time (05/13/2023 10:15 AM EDT) Prothrombin Time 14.6(H) 9.4 - 12.5 sec [facility] International Normalization Ratio 1.3 [facility] Comment: An INR <2.0 [...] ES Performing Organization Address [facility] Co de Phone Number [facility] [place] [address] * EKG 12 Lead (05/13/2023 9:22 AM EDT) Ventricular rate 92 BPM MUSE SYSTEM Atrial Rate 92 BPM MUSE SYSTEM P-R Interval 140 ms MUSE SYSTEM QRS Duration 104 ms MUSE SYSTEM Q-T Interval 384 ms MUSE SYSTEM QTC Calculated (Bezet) 474 ms MUSE SYSTEM Calculated P [place] 33 degrees MUSE SYSTEM Calculated R [place] 41 degrees MUSE SYSTEM Calculated T [place] -35 degrees MUSE SYSTEM INTERPRETATION Sinus rhythm with frequent Premature ventricular complexes Septal infarct , age undetermined ST & T wave abnormality, consider lateral ischemia Abnormal ECG When compared with ECG of 12-MAY-2023 10:10, Premature ventricular complexes are now Present I personally reviewed the tracing and edited the fellows interpretation Confirmed by fellow MD Anitha, Gordontristinalejandro ([id number]) on 05/13/2023 3:25:30 PM Confirmed by Maxx Best ([id number]) on 05/13/2023 8:30:56 PM MUSE SYSTEM 05/13/2023 9:22 AM EDT 05/13/2023 8:30 PM EDT Alirio Hudson MD ECG ORDERABLES MUSE SYSTEM * (ABNORMAL) Differential, Automated (05/13/2023 1:15 AM EDT) Neutrophil % 88.1 % [facility] Neutrophil Absolute 7.62(H) 1.70 - 6.10 x10(3)/mc L [facility] Lymph % 3.1 % [facility] Lymphocytes Abs 0.3(L) 0.9 - 3.2 x10(3)/mc L [facility] Monocyte % 7.9 % [facility] Monocyte Abs 0.7 0.3 - 0.9 x10(3)/mc L [facility] Eos % 0.0 % [facility] Eosinophils Abs 0.0 0.0 - 0.4 x10(3)/mc L [facility] Basophil % 0.1 % [facility] Baso Absolute 0.0 0.0 - 0.1 x10(3)/mc L [facility] Immature Gran % 0.80 % [facility] Comment: Immature granulocytes(IG's)percentage and absolute count will include metamyelocytes, myelocytes, and promyelocytes. Blood smears from CBCs yielding IG's will be scanned manually for concordance. If this scan disagrees with the automated IG or if promyelocytes are noted, a manual differential will be performed. Immature Gran Absolute 0.07(H) 0.00 - 0.04 x10(3)/mc L [facility] Blood 05/13/2023 1:15 AM EDT 05/13/2023 1:29 AM EDT Narrative Resulting Agency Comment Spec In Lab Lorri TOBAR HEMATOLOGY ORDERABLE S [facility] [place] [address] * (ABNORMAL) Hemogram (05/13/2023 1:15 AM EDT) White Blood Cell 8.6 4.0 - 9.5 x10(3)/mc L [facility] Red Blood Cell 2.37(L) 4.00 - 5.21 x10(6)/mc L [facility] Hemoglobin 7.8(L) 11.7 - 15.5 g/dL [facility] Hematocrit 22.2(L) 35.7 - 45.8 % [facility] Mean Cell Volume 93.7 82.6 - 94.4 fL [facility] Mean Cell Hemoglobin 32.9(H) 27.1 - 32.0 pg [facility] Mean Cell Hemoglobin Concentration 35.1(H) 31.7 - 35.0 g/dL [facility] Platelet 130(L) 145 - 357 x10(3)/mc L [facility] RDW Standard Deviation 41.7 37.0 - 46.0 fL [facility] RDW coefficient of variation 12.5 11.5 - 14.1 % [facility] Mean Platelet Volume 10.2 7.6 - 12.9 fL [facility] NRBC% auto 0.5 % [facility] NRBC Absolute 0.040(H) 0.000 - 0.000 x10(3)/mc L [facility] Blood 05/13/2023 1:15 AM EDT 05/13/2023 1:29 AM EDT Narrative Resulting Agency Comment Spec In Lab Lorri TOBAR HEMATOLOGY ORDERABLE S Performing Organization Address City/[facility]/ZIP Co de Phone Number [facility] [place] [address] * (ABNORMAL) Hepatic Function Panel (05/13/2023 1:15 AM EDT) Protein, Total 5.5(L) 6.1 - 8.0 g/dL [facility] Albumin 3.0(L) 3.2 - 5.2 g/dL [facility] Aspartate Aminotransferase 792(H) 0 - 30 unit/L [facility] Alanine Aminotransferase 903(H) 0 - 30 unit/L [facility] Alkaline Phosphatase 85 35 - 105 unit/L [facility] Bilirubin, Total 0.5 0.2 - 1.3 mg/dL [facility] Bilirubin, Direct 0.3 0.0 - 0.3 mg/dL [facility] Blood 05/13/2023 1:15 AM EDT 05/13/2023 1:29 AM EDT Narrative Resulting Agency Comment Spec In Lab Alirio Hudson MD CHEMISTRY ORDERABLE S [facility] [place] [address] * (ABNORMAL) Basic Metabolic Panel (non-fasting) (05/13/2023 1:15 AM EDT) Pathologist [facility] Glucose 107 65 - 199 mg/dL [facility] Comment:Diabetes: >=200 mg/d L plus symptoms Blood Urea Nitrogen 82(H) 8 - 18 mg/dL [facility] Creatinine 3.15(H) 0.70 - 1.20 mg/dL [facility] Comment:result rechecked-JSJ Sodium 132(L) 135 - 145 mmol/L [facility] [...] mmol/L [facility] Carbon Dioxide 20(L) 22 - 31 mmol/L [facility] Anion Gap 17(H) 5 - 15 mmol/L [facility] Calcium 8.3(L) 8.5 - 10.5 mg/dL [facility] Est Glomerular Filtration Rate 16(L) [...] MD CHEMISTRY ORDERABLE S [facility] [place] [address] * (ABNORMAL) BLOOD GAS 2 ARTERIAL (05/12/2023 3:57 PM EDT) pH, Arterial 7.39 7.35 - 7.45 [facility] PCO2, Arterial 33(L) 35 - 45 mmHg [facility] PO2, Arterial 101 85 - 104 mmHg [facility] Bicarbonate, Arterial 19.5(L) 20.0 - 26.0 mmol/L [facility] Base Excess, Arterial -5.5(L) -3.0 - 3.0 mmol/L [facility] Hgb Blood Gas 9.8(L) 11.7 - 15.5 g/dL [facility] Oxyhemoglobin, Arterial 95.2 94.0 - 97.0 % [facility] Carboxyhemoglob in, Arterial 0.2 % [facility] Comment: Nonsmokers: 0.5-1.5% COHB Smokers: Variable, but usually less than 10% Toxic: 20-30% COHB Lethal: Greater than 60% COHB Methemoglobin, Arterial 0.8 <=1.5 % [facility] Na Whole Blood 129(L) 135 - 145 mmol/L [facility] K Whole Blood 3.8 3.5 - 5.0 mmol/L [facility] Comment: Please note: Patients with WBC >100,000 may have falsely elevated Potassium levels. Contact the Clinical Chemistry Laboratory if there are any questions. ICa Whole Blood 1.05(L) 1.15 - 1.33 mmol/L [facility] Comment: Note: ??Total bilirubin higher than 20 mg/dL may lead to falsely low ionized calcium. CL Whole Blood 96(L) 98 - 107 mmol/L [facility] Gluc Whole Bld 178 65 - 199 mg/dL [facility] Comment:Diabetes: >=200 mg/d L plus symptoms. Lactate WB 1.5 0.5 - 2.2 mmol/L [facility] FIO2 Art 40 % [facility] PF Ratio Art 252 [facility] Blood 05/12/2023 3:57 PM EDT 05/12/2023 3:57 PM EDT Alirio Hudson MD POINT OF CARE TEST ORDERABLES Performing Organization Address [facility] Co de Phone Number [facility] [place] [address] * (ABNORMAL) Coox2 (05/12/2023 2:25 PM EDT) pO2, Coox 37 mmHg [facility] Hgb Blood Gas 9.5(L) 11.7 - 15.5 g/dL [facility] Oxyhemoglobin, Coox 59.9 % [facility] Carboxyhemoglo bin, Coox 0.3 % [facility] Comment: Nonsmokers: 0.5-1.5% COHB Smokers: Variable, but usually less than 10% Toxic: 20-30% COHB Lethal: Greater than 60% COHB Methemoglobin, Coox 0.7 <=1.5 % [facility] Source Coox Mixed Venous [facility] Blood 05/12/2023 2:25 PM EDT 05/12/2023 2:25 PM EDT Alirio Hudson MD POINT OF CARE TEST ORDERABLES Performing Organization Address [facility] Co de Phone Number [facility] [place] [address] * (ABNORMAL) BLOOD GAS 2 ARTERIAL (05/12/2023 2:23 PM EDT) pH, Arterial 7.37 7.35 - 7.45 [facility] PCO2, Arterial 36 35 - 45 mmHg [facility] PO2, Arterial 102 85 - 104 mmHg [facility] Bicarbonate, Arterial 20.4 20.0 - 26.0 mmol/L [facility] Base Excess, Arterial -4.8(L) -3.0 - 3.0 mmol/L [facility] Hgb Blood Gas 12.7 11.7 - 15.5 g/dL [facility] Oxyhemoglobin, Arterial 95.4 94.0 - 97.0 % [facility] Carboxyhemoglob in, Arterial 0.3 % [facility] Comment: Nonsmokers: 0.5-1.5% COHB Smokers: Variable, but usually less than 10% Toxic: 20-30% COHB Lethal: Greater than 60% COHB Methemoglobin, Arterial 0.7 <=1.5 % [facility] Na Whole Blood 129(L) 135 - 145 mmol/L [facility] K Whole Blood 3.7 3.5 - 5.0 mmol/L [facility] Comment: Please note: Patients with WBC >100,000 may have falsely elevated Potassium levels. Contact the Clinical Chemistry Laboratory if there are any questions. ICa Whole Blood 1.05(L) 1.15 - 1.33 mmol/L [facility] Comment: Note: ??Total bilirubin higher than 20 mg/dL may lead to falsely low ionized calcium. CL Whole Blood 95(L) 98 - 107 mmol/L [facility] Gluc Whole Bld 168 65 - 199 mg/dL [facility] Comment:Diabetes: >=200 mg/d L plus symptoms. Lactate WB 1.8 0.5 - 2.2 mmol/L [facility] FIO2 Art 40 % [facility] PF Ratio Art 255 [facility] Blood 05/12/2023 2:23 PM EDT 05/12/2023 2:23 PM EDT Alirio Hudson MD POINT OF CARE TEST ORDERABLES [facility] [place] [address] * (ABNORMAL) Troponin (05/12/2023 2:05 PM EDT) Troponin-T, High Sensitivity 1,022(H) <=14 ng/L [facility] Comment: This patient's troponin T [...] value can be found in the [facility] Laboratory Test Catalog Troponin - [facility] Laboratory Test Catalog Reference: Fourth [place] Definition of Myocardial Infarction. Journal of the [employer] 2018;72:4127-4674 Blood 05/12/2023 2:05 PM EDT 05/12/2023 2:14 PM EDT Narrative Resulting Agency Comment Spec In Lab Alirio Hudson MD CHEMISTRY ORDERABLE S [facility] [place] [address] * (ABNORMAL) Hemoglobin (05/12/2023 2:05 PM EDT) Hemoglobin 8.5(L) 11.7 - 15.5 g/dL [facility] Blood 05/12/2023 2:05 PM EDT 05/12/2023 2:14 PM EDT Narrative Resulting Agency Comment Spec In Lab Alirio Hudson MD HEMATOLOGY ORDERABL ES Performing Organization Address [facility] Co de Phone Number [facility] [place] [address] * Potassium (05/12/2023 2:05 PM EDT) Potassium [...] S Performing Organization Address [facility] Co de Phone Number [facility] [place] [address] * (ABNORMAL) BLOOD GAS 2 ARTERIAL (05/12/2023 11:05 AM EDT) pH, Arterial 7.34(L) 7.35 - 7.45 [facility] PCO2, Arterial 42 35 - 45 mmHg [facility] PO2, Arterial 73(L) 85 - 104 mmHg [facility] Bicarbonate, Arterial 22.1 20.0 - 26.0 mmol/L [facility] Base Excess, Arterial -3.6(L) -3.0 - 3.0 mmol/L [facility] Hgb Blood Gas 9.3(L) 11.7 - 15.5 g/dL [facility] Oxyhemoglobin, Arterial 89.3(L) 94.0 - 97.0 % [facility] Carboxyhemoglob in, Arterial 0.2 % [facility] Comment: Nonsmokers: 0.5-1.5% COHB Smokers: Variable, but usually less than 10% Toxic: 20-30% COHB Lethal: Greater than 60% COHB Methemoglobin, Arterial 0.9 <=1.5 % [facility] Na Whole Blood 131(L) 135 - 145 mmol/L [facility] K Whole Blood 3.8 3.5 - 5.0 mmol/L [facility] Comment: Please note: Patients with WBC >100,000 may have falsely elevated Potassium levels. Contact the Clinical Chemistry Laboratory if there are any questions. ICa Whole Blood 1.04(L) 1.15 - 1.33 mmol/L [facility] Comment: Note: ??Total bilirubin higher than 20 mg/dL may lead to falsely low ionized calcium. CL Whole Blood 96(L) 98 - 107 mmol/L [facility] Gluc Whole Bld 152 65 - 199 mg/dL [facility] Comment:Diabetes: >=200 mg/d L plus symptoms. Lactate WB 2.8(H) 0.5 - 2.2 mmol/L [facility] FIO2 Art 40 % [facility] PF Ratio Art 182 [facility] Blood 05/12/2023 11:0 5 AM EDT 05/12/2023 11:05 AM EDT Alirio Hudson MD POINT OF CARE TEST ORDERABLES Performing Organization Address City/State/[facility] Co de Phone Number [facility] [place] [address] * (ABNORMAL) BLOOD GAS 2 ARTERIAL (05/12/2023 10:14 AM EDT) pH, Arterial 7.18(Criti gabrielle) 7.35 - 7.45 [facility] Comment:Noted by musical instrument mechanic. PCO2, Arterial 45 35 - 45 mmHg [facility] PO2, Arterial 186(H) 85 - 104 mmHg [facility] Bicarbonate, Arterial 16.2(L) 20.0 - 26.0 mmol/L [facility] Base Excess, Arterial -12.2(L) -3.0 - 3.0 mmol/L [facility] Hgb Blood Gas 10.0(L) 11.7 - 15.5 g/dL [facility] Oxyhemoglobin, Arterial 97.0 94.0 - 97.0 % [facility] Carboxyhemoglob in, Arterial 0.2 % [facility] Comment: Nonsmokers: 0.5-1.5% COHB Smokers: Variable, but usually less than 10% Toxic: 20-30% COHB Lethal: Greater than 60% COHB Methemoglobin, Arterial 0.9 <=1.5 % [facility] Na Whole Blood 129(L) 135 - 145 mmol/L [facility] K Whole Blood 3.6 3.5 - 5.0 mmol/L [facility] Comment: Please note: Patients with WBC >100,000 may have falsely elevated Potassium levels. Contact the Clinical Chemistry Laboratory if there are any questions. ICa Whole Blood 1.10(L) 1.15 - 1.33 mmol/L [facility] Comment: Note: ??Total bilirubin higher than 20 mg/dL may lead to falsely low ionized calcium. CL Whole Blood 97(L) 98 - 107 mmol/L [facility] Gluc Whole Bld 161 65 - 199 mg/dL [facility] Comment:Diabetes: >=200 mg/d L plus symptoms. Lactate WB 3.3(H) 0.5 - 2.2 mmol/L [facility] FIO2 Art 100 % [facility] PF Ratio Art 186 [facility] Blood 05/12/2023 10:1 4 AM EDT 05/12/2023 10:14 AM EDT Alirio Hudson MD POINT OF CARE TEST ORDERABLES Performing Organization Address City/State/[facility] Co de Phone Number [facility] [place] [address] * EKG 12 Lead (05/12/2023 10:10 AM EDT) Ventricular rate 116 BPM MUSE SYSTEM Atrial Rate 116 BPM MUSE SYSTEM P-R Interval 158 ms MUSE SYSTEM QRS Duration 114 ms MUSE SYSTEM Q-T Interval 348 ms MUSE SYSTEM QTC Calculated (Bezet) 483 ms MUSE SYSTEM Calculated P [place] 37 degrees MUSE SYSTEM Calculated R [place] 31 degrees MUSE SYSTEM Calculated T [place] -138 degrees MUSE SYSTEM INTERPRETATION Sinus tachycardia with intermittent aberrant ventricular conduction Possible Left atrial enlargement Incomplete left bundle block Left ventricular hypertrophy with repolarization abnormality ( Sokolow-Orozco , [place] product ) ST & T wave abnormality in Inferolateral leads Abnormal ECG When compared with ECG of 10-MAY-2023 13:16, ST & T wave abnormality is more pronounced in inferolateral leads I personally reviewed the tracing and edited the fellows interpretation Confirmed by fellow MD Anuja, Jim ([id number]) on 05/12/2023 1:04:20 PM Confirmed by MD Villareal Danette ([id number]) on 05/12/2023 9:28:34 PM MUSE SYSTEM 05/12/2023 [...] who have questions please contact the health tree care foreman that requested your imaging first. ? Electronically signed by: Chyna Johnson MD, [facility] ??([phone]), at 05/12/2023 10:08 AM Narrative 05/12/2023 10:08 AM EDT EXAMINATION: XR CHEST ONE VIEW CLINICAL HISTORY: Post TAVR TECHNIQUE: 1 view of the chest COMPARISON: Chest radiograph from earlier today FINDINGS: Interval placement of endotracheal tube with tip terminating 2 cm above the shira. Interval placement of enteric tube projecting along the expected course of the esophagus and outside the omgou-aa-emiq. Interval retraction of right IJ approach pulmonary [...] expected course ofthe esophagus and outside the thauu-ek-nlsd. Interval retraction of right IJ approach pulmonary [...] patients who have questions please contactthe health tree care foreman that requested your imaging first. Electronically signed by: Chyna Johnson MD, [facility]([phone]), at 05/12/2023 10:08 AM Alirio Hudson MD [...] 1955 ? Height: 154 cm ? Account: [id number] Age: 67 yrs ? Weight: 75 kg [...] mL/m2. POST TAVR: Normal function of the kciai-tx-hnxze prosthesis. See below for hemodynamic parameters. Slight improvement in left and right ventricular systolic function. LVEF now 20-25%. No pericardial effusion. See report for additional findings. Procedure Limited - 32509. Doppler - 31962. Color Doppler - 72531. Left Ventricle Left ventricle is of normal [...] 307:33 AMBP: 96/63 mmHg Patient Location: [address] : 1955 Height: 154 cm Account: [id number] Age: 67 yrs Weight: 75 kg Gender: [...] 28mL/m2. POST TAVR: Normal function of the nsbwm-pd-tglhx prosthesis. See belowfor hemodynamic parameters. Slight improvement in left and right ventricularsystolic function. LVEF now 20-25%. No pericardial effusion. See report for additional findings. Procedure Limited - 60380. Doppler - 79865. Color Doppler - 96850. Left Ventricle Left ventricle is of normal [...] Narrative 05/12/2023 2:37 PM EDT ?[facility] ? Cardiac Catheterization/Intervention Report ? Patient Name: Kirstie, Purnima M. ? Procedure Date: 05/12/2023 ? A #: [id number] ? Primary Physician: Antelmo Sharma ? Case #: [id number] ? File Name: [id number] ? Catheterization Order Number: [id number] ? [facility] ? Final Report [place], [place] ? Patient Name: ? Purnima Thacker ? ID#: ?[id number] ? : ?1955 ? Procedure Date: ? May 12, 2023 ? Case #: ? [id number] ? Room: ? 6 ? Case Physicians: ?Antelmo Sharma M.D. ?Start: ?08:03 ?Alirio Hudson M.D. ?Admission: ??05/08/2023 ?Lynda Mcgowan M.D. ? Discharge: ??05/22/2023 ?Fellow: ? Kristied Adair Tejeda ? Referring Physician: ??Mario Alberto Chin M.D. ? Procedures: ?* Coronary Angiography ?* Left Heart Catheterization ?* Coronary Stent Insertion ?* Transcatheter Aortic Valve Replacement ?* Vascular Closure Device Deployment ?* Temporary Pacemaker Insertion In Hospital [facility]ental [facility] ?* Endotracheal Intubation By Non-Cath Physician ?* [...] ??A premounted 4.00 x 30 mm Nils Reeves (MINNA) was ? deployed with a maximum [...] calculated STS risk score was 30.1%. A njvxz-ju-pjuaa ?procedure was performed on the pre-existing bioprosthetic stented ?prosthesis. The priority of the sjluc-lp-khamy procedure was Elective. ?The procedure was performed [...] Lai 3 Ultra RESILIA 23 mm THV ([id number]/l=[id number]) transcatheter ?valve was inserted using standard technique. 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 ?Recommended anti-platelet/anti-thrombotic regimen: ?Continue aspirin 81 mg [...] regimen. ? Comments: ?Successful right transfemoral TAVR Mpuax-ar-Kmttp with a 23 mm Lai 3 ?THV. 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 Dr. Alirio Hudson M.D. ?performed the left heart catheterization, access site angiography, ?temporary pacemaker in pathology laboratory aides teacher, vascular closure device, transthoracic ?echo , TAVR and CPR during cath. Dr. Lynda Mcgowan M.D. performed the ABG, ?anesthesia and intubation-non cath physician. ? Antelmo Sharma M.D. ? Electronically Signed by: Antelmo Sharma M.D. ? Report Finalized: 05/12/2023 ??14:31 ? Report Last Ammended: 07/01/2023 ??11:30 ? Procedure Note Antelmo Sharma MD - 07/01/[address] [facility] Cardiac Catheterization/Intervention Report Patient Name: Cuauhtemoc Thackerise Arabella Procedure Date: 05/12/2023 A #: [id number] Primary Physician: Antelmo Sharma Case #: [id number] File Name: [id number] Catheterization Order Number: [id number] [facility] FinalReport [place], [place] Patient Name: Purnima Thacker ID#:[id number] :1955 Procedure Date: May 12, 2023 Case #: [id number] Room: 6 Case Physicians: Antelmo Sharma M.D. Start: 08:03 Alirio Hudson M.D. Admission:05/08/2023 Lynda Mcgowan M.D. Discharge:05/22/2023 Fellow: Rebekah Tejeda M.D. Referring Physician: Mario Alberto Chin M.D. 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 A bwhkn-vj-fqiyx procedure was performed on the pre-existing bioprosthetic stented prosthesis. The priority of the [id number] procedure wasElective. The procedure was performed under Moderate sedation performed byLynda Mcgowan M.D. (see anesthesia report for additional details). Alirio Hudson M.D. participated in the case (see Cardiac Surgery reportfor additional details). The TAVR sheath was a 14 Fr Corona eSheath Introducer and theaccess site was femoral. Rapid ventricular pacing was performed. An Corona Lai 3 Ultra RESILIA 23 mm THV ([id number])transcatheter valve was inserted using standard technique. The [...] prior to nor was it given inthe pathology laboratory aides teacher. Recommended anti-platelet/anti-thrombotic regimen: Continue aspirin 81 mg [...] this regimen. Comments: Successful right transfemoral TAVR Pkufq-wq-Garmx with a 23 mmSapien 3 THV. We [...] insertion-coronary, access site angiography, temporary pacemaker in pathology laboratory aides teacher, intubation-non cath physician,vascular closure device, transthoracic echo and TAVR. Dr. Alirio Hudson M.D. performed the left heart catheterization, access site angiography, temporary pacemaker in pathology laboratory aides teacher, vascular closure device,transthoracic echo , TAVR and [...] pH, POC 7.20(Crit ical) 7.35 - 7.45 [facility] Comment:Critical value OK, C C Lab. pCO2, POC 42 35 - 45 mmHg [facility] pO2, POC 260(H) 85 - 104 mmHg [facility] Base Excess, POC -11.0(L) -3.0 - 3.0 mmol/L [facility] Bicarbonate, POC 16.7(L) 20.0 - 26.0 mmol/L [facility] Sodium, POC 129(L) 135 - 145 mmol/L [facility] POC Potassium 3.8 3.5 - 5.0 mmol/L [facility] Ionized Calcium, POC 1.12(L) 1.15 - 1.33 mmol/L [facility] POC Hematocrit 23.0(L) 34.0 - 45.0 % [facility] POC Calc Hgb 7.8(L) 11.2 - 15.7 g/dL [facility] Comment:The calculation of h emoglobin from hematocrit assumes a normal MCHC. POC Bgas Loc CC Lab [facility] Blood 05/12/2023 8:50 AM EDT 05/13/2023 12:00 PM EDT Alirio Hudson MD CHEMISTRY ORDERABLE S [facility] [place] [address] * (ABNORMAL) Point of Care Blood Gas Historical (05/12/2023 8:10 AM EDT) pH, POC 7.27(Crit ical) 7.35 - 7.45 [facility] Comment:Critical value OK, C C Lab. pCO2, POC 37 35 - 45 mmHg [facility] pO2, POC 29(Critic al) 85 - 104 mmHg [facility] Comment:Critical value OK, C C Lab. Base Excess, POC -10.0(L) -3.0 - 3.0 mmol/L [facility] Bicarbonate, POC 16.7(L) 20.0 - 26.0 mmol/L [facility] Sodium, POC 123(L) 135 - 145 mmol/L [facility] POC Potassium 4.0 3.5 - 5.0 mmol/L [facility] Ionized Calcium, POC 1.12(L) 1.15 - 1.33 mmol/L [facility] POC Hematocrit 27.0(L) 34.0 - 45.0 % [facility] POC Calc Hgb 9.2(L) 11.2 - 15.7 g/dL [facility] Comment:The calculation of h emoglobin from hematocrit assumes a normal MCHC. POC Bgas Loc CC Lab [facility] Blood 05/12/2023 8:10 AM EDT 05/13/2023 12:00 PM EDT Alirio Hudson MD CHEMISTRY ORDERABLE S [facility] [place] [address] * (ABNORMAL) Lactate, whole blood, send to lab ([facility] (05/12/2023 7:00 AM EDT) Lactate WB 2.4(H) 0.5 - 2.2 mmol/L [facility] Blood 05/12/2023 7:00 AM EDT 05/12/2023 7:09 AM EDT Narrative Resulting Agency Comment Spec In Lab Radha Hollins MD CHEMISTRY ORDERABL ES Performing Organization Address City/[facility]/ZIP Co de Phone Number [facility] [place] [address] * (ABNORMAL) Comprehensive metabolic panel (non-fasting) (05/12/2023 6:00 AM EDT) Glucose 167 65 - 199 mg/dL [facility] Comment:Diabetes: >=200 mg/d L plus symptoms Blood Urea Nitrogen 67(H) 8 - 18 mg/dL [facility] Creatinine 2.01(H) 0.70 - 1.20 mg/dL [facility] Sodium 131(L) 135 - 145 mmol/L [facility] Potassium 4.3 3.5 - 5.0 mmol/L [facility] Comment: Please note: ??Patients with WBC >100,000 may have falsely elevated Potassium levels. ??For accurate Potassium quantification in these patients send serum separator tube (gold top) for subsequent determinations. ??Contact the Clinical Chemistry Laboratory if there are any questions. Chloride 97(L) 98 - 107 mmol/L [facility] Carbon Dioxide 14(L) 22 - 31 mmol/L [facility] Anion Gap 20(H) 5 - 15 mmol/L [facility] Calcium 8.6 8.5 - 10.5 mg/dL [facility] Protein, Total 6.3 6.1 - 8.0 g/dL [facility] Albumin 3.5 3.2 - 5.2 g/dL [facility] Aspartate Aminotransferase 1,435(H) 0 - 30 unit/L [facility] Alanine Aminotransferase 1,174(H) 0 - 30 unit/L [facility] Alkaline Phosphatase 100 35 - 105 unit/L [facility] Bilirubin, Total 0.9 0.2 - 1.3 mg/dL [facility] Est Glomerular Filtration Rate 27(L) [...] MD CHEMISTRY ORDERABL ES [facility] [place] [address] * (ABNORMAL) Coox2 (05/12/2023 5:08 AM EDT) pO2, Coox 24 mmHg [facility] Hgb Blood Gas 10.4(L) 11.7 - 15.5 g/dL [facility] Oxyhemoglobin, Coox 30.7 % [facility] Carboxyhemoglo bin, Coox 0.3 % [facility] Comment: Nonsmokers: 0.5-1.5% COHB Smokers: Variable, but usually less than 10% Toxic: 20-30% COHB Lethal: Greater than 60% COHB Methemoglobin, Coox 0.8 <=1.5 % [facility] Source Coox Mixed Venous [facility] Blood 05/12/2023 5:08 AM EDT 05/12/2023 5:08 AM EDT Radha Hollins MD POINT OF CARE TEST ORDERABLES Performing Organization Address [facility] Co de Phone Number [facility] [place] [address] * (ABNORMAL) Coox2 (05/12/2023 3:21 AM EDT) pO2, Coox 25 mmHg [facility] Hgb Blood Gas 10.8(L) 11.7 - 15.5 g/dL [facility] Oxyhemoglobin, Coox 32.7 % [facility] Carboxyhemoglo bin, Coox 0.3 % [facility] Comment: Nonsmokers: 0.5-1.5% COHB Smokers: Variable, but usually less than 10% Toxic: 20-30% COHB Lethal: Greater than 60% COHB Methemoglobin, Coox 0.7 <=1.5 % [facility] Source Coox Mixed Venous [facility] Blood 05/12/2023 3:21 AM EDT 05/12/2023 3:21 AM EDT Radha Hollins MD POINT OF CARE TEST ORDERABLES Performing Organization Address [facility] Co de Phone Number [facility] [place] [address] * (ABNORMAL) BLOOD GAS 2 ARTERIAL (05/12/2023 3:18 AM EDT) pH, Arterial 7.34(L) 7.35 - 7.45 [facility] PCO2, Arterial 30(L) 35 - 45 mmHg [facility] PO2, Arterial 72(L) 85 - 104 mmHg [facility] Bicarbonate, Arterial 16.0(L) 20.0 - 26.0 mmol/L [facility] Base Excess, Arterial -9.8(L) -3.0 - 3.0 mmol/L [facility] Hgb Blood Gas 11.0(L) 11.7 - 15.5 g/dL [facility] Oxyhemoglobin, Arterial 89.8(L) 94.0 - 97.0 % [facility] Carboxyhemoglob in, Arterial 0.3 % [facility] Comment: Nonsmokers: 0.5-1.5% COHB Smokers: Variable, but usually less than 10% Toxic: 20-30% COHB Lethal: Greater than 60% COHB Methemoglobin, Arterial 0.7 <=1.5 % [facility] Na Whole Blood 131(L) 135 - 145 mmol/L [facility] K Whole Blood 4.2 3.5 - 5.0 mmol/L [facility] Comment: Please note: Patients with WBC >100,000 may have falsely elevated Potassium levels. Contact the Clinical Chemistry Laboratory if there are any questions. ICa Whole Blood 1.12(L) 1.15 - 1.33 mmol/L [facility] Comment: Note: ??Total bilirubin higher than 20 mg/dL may lead to falsely low ionized calcium. CL Whole Blood 100 98 - 107 mmol/L [facility] Gluc Whole Bld 160 65 - 199 mg/dL [facility] Comment:Diabetes: >=200 mg/d L plus symptoms. Lactate WB 2.7(H) 0.5 - 2.2 mmol/L [facility] Flow Art 5.0 LPM [facility] Blood 05/12/2023 3:18 AM EDT 05/12/2023 3:18 AM EDT Radha Hollins MD POINT OF CARE TEST ORDERABLES Performing Organization Address City/State/[facility] Co de Phone Number [facility] [place] [address] * (ABNORMAL) Coox2 (05/12/2023 1:14 AM EDT) pO2, Coox 28 mmHg [facility] Hgb Blood Gas 10.9(L) 11.7 - 15.5 g/dL [facility] Oxyhemoglobin, Coox 37.3 % [facility] Carboxyhemoglo bin, Coox 0.3 % [facility] Comment: Nonsmokers: 0.5-1.5% COHB Smokers: Variable, but usually less than 10% Toxic: 20-30% COHB Lethal: Greater than 60% COHB Methemoglobin, Coox 0.5 <=1.5 % [facility] Source Coox Mixed Venous [facility] Blood 05/12/2023 1:14 AM EDT 05/12/2023 1:14 AM EDT Radha Hollins MD POINT OF CARE TEST ORDERABLES [facility] [place] [address] * (ABNORMAL) BLOOD GAS 2 ARTERIAL (05/12/2023 1:06 AM EDT) pH, Arterial 7.34(L) 7.35 - 7.45 [facility] PCO2, Arterial 30(L) 35 - 45 mmHg [facility] PO2, Arterial 81(L) 85 - 104 mmHg [facility] Bicarbonate, Arterial 15.7(L) 20.0 - 26.0 mmol/L [facility] Base Excess, Arterial -10.1(L) -3.0 - 3.0 mmol/L [facility] Hgb Blood Gas 11.0(L) 11.7 - 15.5 g/dL [facility] Oxyhemoglobin, Arterial 92.3(L) 94.0 - 97.0 % [facility] Carboxyhemoglob in, Arterial 0.2 % [facility] Comment: Nonsmokers: 0.5-1.5% COHB Smokers: Variable, but usually less than 10% Toxic: 20-30% COHB Lethal: Greater than 60% COHB Methemoglobin, Arterial 0.6 <=1.5 % [facility] Na Whole Blood 131(L) 135 - 145 mmol/L [facility] K Whole Blood 4.2 3.5 - 5.0 mmol/L [facility] Comment: Please note: Patients with WBC >100,000 may have falsely elevated Potassium levels. Contact the Clinical Chemistry Laboratory if there are any questions. ICa Whole Blood 1.13(L) 1.15 - 1.33 mmol/L [facility] Comment: Note: ??Total bilirubin higher than 20 mg/dL may lead to falsely low ionized calcium. CL Whole Blood 99 98 - 107 mmol/L [facility] Gluc Whole Bld 132 65 - 199 mg/dL [facility] Comment:Diabetes: >=200 mg/d L plus symptoms. Lactate WB 2.7(H) 0.5 - 2.2 mmol/L [facility] Flow Art 5.0 LPM [facility] Blood 05/12/2023 1:06 AM EDT 05/12/2023 1:06 AM EDT Radha Hollins MD POINT OF CARE TEST ORDERABLES [facility] [place] [address] * (ABNORMAL) Differential, Automated (05/12/2023 1:05 AM EDT) Neutrophil % 83.3 % [facility] Neutrophil Absolute 7.49(H) 1.70 - 6.10 x10(3)/mc L [facility] Lymph % 7.1 % [facility] Lymphocytes Abs 0.6(L) 0.9 - 3.2 x10(3)/mc L [facility] Monocyte % 8.9 % [facility] Monocyte Abs 0.8 0.3 - 0.9 x10(3)/mc L [facility] Eos % 0.0 % [facility] Eosinophils Abs 0.0 0.0 - 0.4 x10(3)/mc L [facility] Basophil % 0.1 % [facility] Baso Absolute 0.0 0.0 - 0.1 x10(3)/mc L [facility] Immature Gran % 0.60 % [facility] Comment: Immature granulocytes(IG's)percentage and absolute count will include metamyelocytes, myelocytes, and promyelocytes. Blood smears from CBCs yielding IG's will be scanned manually for concordance. If this scan disagrees with the automated IG or if promyelocytes are noted, a manual differential will be performed. Immature Gran Absolute 0.05(H) 0.00 - 0.04 x10(3)/mc L [facility] Blood 05/12/2023 1:05 AM EDT 05/12/2023 1:15 AM EDT Narrative Resulting Agency Comment Spec In Lab Gianni Fletcher MD HEMATOLOGY ORDERABLE S [facility] [place] [address] * (ABNORMAL) Hemogram (05/12/2023 1:05 AM EDT) White Blood Cell 9.0 4.0 - 9.5 x10(3)/mc L [facility] Red Blood Cell 3.01(L) 4.00 - 5.21 x10(6)/mc L [facility] Hemoglobin 9.8(L) 11.7 - 15.5 g/dL [facility] Hematocrit 28.7(L) 35.7 - 45.8 % [facility] Mean Cell Volume 95.3(H) 82.6 - 94.4 fL [facility] Mean Cell Hemoglobin 32.6(H) 27.1 - 32.0 pg [facility] Mean Cell Hemoglobin Concentration 34.1 31.7 - 35.0 g/dL [facility] Platelet 186 145 - 357 x10(3)/mc L [facility] RDW Standard Deviation 43.7 37.0 - 46.0 fL [facility] RDW coefficient of variation 12.7 11.5 - 14.1 % [facility] Mean Platelet Volume 10.3 7.6 - 12.9 fL [facility] NRBC% auto 0.0 % [facility] NRBC Absolute 0.000 0.000 - 0.000 x10(3)/mc L [facility] Blood 05/12/2023 1:05 AM EDT 05/12/2023 1:15 AM EDT Narrative Resulting Agency Comment Spec In Lab Gianni Fletcher MD HEMATOLOGY ORDERABLE S [facility] [place] [address] * (ABNORMAL) Comprehensive metabolic panel (non-fasting) (05/12/2023 1:05 AM EDT) Glucose 141 65 - 199 mg/dL [facility] Comment:Diabetes: >=200 mg/d L plus symptoms Blood Urea Nitrogen 63(H) 8 - 18 mg/dL [facility] Creatinine 1.86(H) 0.70 - 1.20 mg/dL [facility] Sodium 131(L) 135 - 145 mmol/L [facility] Potassium 4.4 3.5 - 5.0 mmol/L [facility] Comment: Please note: ??Patients with WBC >100,000 may have falsely elevated Potassium levels. ??For accurate Potassium quantification in these patients send serum separator tube (gold top) for subsequent determinations. ??Contact the Clinical Chemistry Laboratory if there are any questions. Chloride 96(L) 98 - 107 mmol/L [facility] Carbon Dioxide 14(L) 22 - 31 mmol/L [facility] Anion Gap 21(H) 5 - 15 mmol/L [facility] Calcium 9.0 8.5 - 10.5 mg/dL [facility] Protein, Total 6.6 6.1 - 8.0 g/dL [facility] Albumin 3.9 3.2 - 5.2 g/dL [facility] Aspartate Aminotransferase 1,227(H) 0 - 30 unit/L [facility] Alanine Aminotransferase 1,097(H) 0 - 30 unit/L [facility] Alkaline Phosphatase 108(H) 35 - 105 unit/L [facility] Bilirubin, Total 1.0 0.2 - 1.3 mg/dL [facility] Est Glomerular Filtration Rate 29(L) [...] MD CHEMISTRY ORDERABL ES [facility] [place] [address] * XR Chest One View (05/12/2023 1:00 [...] who have questions please contact the health tree care foreman that requested your imaging first. ? Narrative [...] patients who have questions please contactthe health tree care foreman that requested your imaging first. Radha Hollins MD IMG DX ORDERABLES * (ABNORMAL) Coox2 (05/12/2023 12:30 AM EDT) pO2, Coox 22 mmHg [facility] Hgb Blood Gas 10.9(L) 11.7 - 15.5 g/dL [facility] Oxyhemoglobin, Coox 25.1 % [facility] Carboxyhemoglo bin, Coox 0.3 % [facility] Comment: Nonsmokers: 0.5-1.5% COHB Smokers: Variable, but usually less than 10% Toxic: 20-30% COHB Lethal: Greater than 60% COHB Methemoglobin, Coox 1.4 <=1.5 % [facility] Source Coox Mixed Venous [facility] Blood 05/12/2023 12:3 0 AM EDT 05/12/2023 12:30 AM EDT Radha Hollins MD POINT OF CARE TEST ORDERABLES [facility] [place] [address] * XR Chest One View (05/11/2023 11:45 [...] who have questions please contact the health tree care foreman that requested your imaging first. ? Narrative [...] patients who have questions please contactthe health tree care foreman that requested your imaging first. Radha Hollins MD IMG DX ORDERABLES * (ABNORMAL) Lactate, whole blood, send to lab ([facility] (05/11/2023 7:40 PM EDT) Lactate WB 4.8(Critic al) 0.5 - 2.2 mmol/L [facility] Comment:Called by: [facility], Read back by: Magdalena Baires, Date/Time:05/11/23 19:54. Blood 05/11/2023 7:40 PM EDT 05/11/2023 7:49 PM EDT Narrative Resulting Agency Comment Spec In Lab Radha Hollins MD CHEMISTRY ORDERABL ES Performing Organization Address [facility] Co de Phone Number [facility] [place] [address] * Urine culture (05/11/2023 7:22 PM EDT) Urine Culture 50,000-99,000 cfu/ml Normal mucosal herman Susceptibilit y testing not routinely performed for Coagulase Negative Staphylococcu s species and other Gram Positive organisms from urine. [facility] Clean Catch Urine 05/11/2023 7:22 PM EDT 05/11/2023 8:50 PM EDT Narrative Resulting Agency Comment Spec In Lab Brody Enriquezwilder LEMAN MICROBIOLOGY - GENE RAL ORDERABLES Performing Organization Address [facility] de Phone Number [facility] [place] [address] * (ABNORMAL) Urinalysis Microscopic Exam (05/11/2023 7:22 PM EDT) RBC, Urine 2 0 - 4 /HPF [facility] WBC, Urine >100(H) 0 - 5 /HPF [facility] Bacteria, Urine Occasional (A) None /HPF [facility] Squamous Epithelial Cells Raw Data, Urine 5(H) <=4 /HPF [facility] Hyaline Casts, Urine 3(H) 0 - 2 /LPF [facility] Clean Catch Urine 05/11/2023 7:22 PM EDT 05/11/2023 7:31 PM EDT Narrative Resulting Agency Comment Spec In Lab Brody Dale Eusebio LEMAN URINE ORDERABLES Performing Organization Address [facility] Co de Phone Number [facility] [place] [address] * (ABNORMAL) Urinalysis with reflex Culture (05/11/2023 7:22 PM EDT) Glucose, Urine Dipstick Negative Negative mg/dL [facility] Protein, Urine Dipstick Trace(A) Negative mg/dL [facility] Bilirubin, Urine Dipstick Negative Negative mg/dL [facility] Comment: Clinical correlation required for positive Urine Bilirubin results as false positive may occur with some drugs and drug related products. If a false positive is suspected a serum total bilirubin should be considered if clinically indicated. Urobilinogen, Urine Dipstick Normal Normal mg/dL [facility] pH, Urn (dipstick) 5.0 5.0 - 8.0 [facility] Blood, Urine Dipstick Trace(A) Negative mg/dL [facility] Ketone, Urine Dipstick Negative Negative mg/dL [facility] Nitrite, Urine Dipstick Negative Negative [facility] Leukocytes, Urine Dipstick Moderate(A) Negative mcL [facility] Appearance, Urine Dipstick Cloudy(A) Clear [facility] Specific [place] Urine Automated >=1.030(A) 1.005 - 1.030 [facility] Color, Urine Dipstick Yellow Yellow [facility] Reflex to Culture Yes [facility] Clean Catch Urine 05/11/2023 7:22 PM EDT 05/11/2023 7:31 PM EDT Narrative Resulting Agency Comment Spec In Lab Brody Kaplan APRN URINE ORDERABLES Performing Organization Address [facility] Co de Phone Number [facility] [place] [address] * (ABNORMAL) pro-Brain Natriuretic Peptide (05/11/2023 7:11 PM EDT) Pathologist [facility] NT-proBNP >35,000(H) <=124 pg/mL [facility] Blood 05/11/2023 7:11 PM EDT 05/11/2023 7:26 PM EDT Narrative Resulting Agency Comment Spec In Lab Radha Hollins MD CHEMISTRY ORDERABL ES Performing Organization Address [facility] Co de Phone Number [facility] [place] [address] * (ABNORMAL) Lactate, whole blood, send to lab ([facility] (05/11/2023 2:47 PM EDT) Lactate WB 2.9(H) 0.5 - 2.2 mmol/L [facility] Blood 05/11/2023 2:47 PM EDT 05/11/2023 2:53 PM EDT Narrative Resulting Agency Comment Spec In Lab Juan Luis Gonzalez MD CHEMISTRY ORDERABLES [facility] [place] [address] * (ABNORMAL) CT Angiogram Abdomen & Pelvis [...] who have questions please contact the health tree care foreman that requested your imaging first. ? Narrative [...] who have questions please contact the health tree care foreman that requested your imaging first. ? Electronically signed by: Cullen Narayanan MD, [facility] ([phone]), at 05/11/2023 4:37 PM Narrative 05/11/2023 4:37 [...] 610 mm2 Circumference: 88 mm Calcification: Mild Nwhpgpy-ih-laquezaa height: Left: 6.2 mm Right: 5.8 mm THORACIC AORTA Description: Normal course and caliber. ??Mild diffuse atherosclerotic changes. No acute aortopathy noted. Activities Aide dimensions: Aortic root: 27.6 mm Max ascending aorta: 30.5 mm x 27.7 mm Suggested fluoroscopic angulation based on line extending through the nadirs of the three sinuses of Valsalva, set equidistant: ?? URDU ??9 degrees; cranial 7 degrees MITRAL: Mitral [...] 610 mm2 Circumference: 88 mm Calcification: Mild Hssdsyr-es-coitckaf height: Left: 6.2 mm Right: 5.8 mm THORACIC AORTA Description: Normal course and caliber. Mild diffuse atheroscleroticchanges. No acute aortopathy noted. Activities Aide dimensions: Aortic root: 27.6 mm Max ascending aorta: 30.5 mm x 27.7 mm Suggested fluoroscopic angulation based on line extending through thenadirs of the three sinuses of Valsalva, set equidistant: URDU 9 degrees; cranial 7 degrees MITRAL: Mitral [...] patients who have questions please contactthe health tree care foreman that requested your imaging first. Electronically signed by: Cullen Narayanan MD, [facility]([phone]), at 05/11/2023 4:37 PM Antelmo Sharma MD IMG CT ORDERABLES * (ABNORMAL) Lactate, whole blood, send to lab ([facility] (05/11/2023 9:29 AM EDT) Lactate WB 3.1(H) 0.5 - 2.2 mmol/L [facility] Blood 05/11/2023 9:29 AM EDT 05/11/2023 9:38 AM EDT Narrative Resulting Agency Comment Spec In Lab Juan Luis Gonzalez MD CHEMISTRY ORDERABLES Performing Organization Address City/State/[facility] Co de Phone Number [facility] [place] [address] * (ABNORMAL) Differential, Automated (05/11/2023 4:42 AM EDT) Neutrophil % 78.1 % [facility] Neutrophil Absolute 5.46 1.70 - 6.10 x10(3)/mc L [facility] Lymph % 10.6 % [facility] Lymphocytes Abs 0.7(L) 0.9 - 3.2 x10(3)/mc L [facility] Monocyte % 9.6 % [facility] Monocyte Abs 0.7 0.3 - 0.9 x10(3)/mc L [facility] Eos % 0.0 % [facility] Eosinophils Abs 0.0 0.0 - 0.4 x10(3)/mc L [facility] Basophil % 0.4 % [facility] Baso Absolute 0.0 0.0 - 0.1 x10(3)/mc L [facility] Immature Gran % 1.30 % [facility] Comment: Immature granulocytes(IG's)percentage and absolute count will include metamyelocytes, myelocytes, and promyelocytes. Blood smears from CBCs yielding IG's will be scanned manually for concordance. If this scan disagrees with the automated IG or if promyelocytes are noted, a manual differential will be performed. Immature Gran Absolute 0.09(H) 0.00 - 0.04 x10(3)/mc L [facility] Blood 05/11/2023 4:42 AM EDT 05/11/2023 4:49 AM EDT Narrative Resulting Agency Comment Spec In Lab Klaudia Reid MD HEMATOLOGY OR DERABLES [facility] [place] [address] * (ABNORMAL) Hemogram (05/11/2023 4:42 AM EDT) White Blood Cell 7.0 4.0 - 9.5 x10(3)/mc L [facility] Red Blood Cell 3.44(L) 4.00 - 5.21 x10(6)/mc L [facility] Hemoglobin 11.1(L) 11.7 - 15.5 g/dL [facility] Hematocrit 32.7(L) 35.7 - 45.8 % [facility] Mean Cell Volume 95.1(H) 82.6 - 94.4 fL [facility] Mean Cell Hemoglobin 32.3(H) 27.1 - 32.0 pg [facility] Mean Cell Hemoglobin Concentration 33.9 31.7 - 35.0 g/dL [facility] Platelet 165 145 - 357 x10(3)/mc L [facility] RDW Standard Deviation 43.1 37.0 - 46.0 fL [facility] RDW coefficient of variation 12.7 11.5 - 14.1 % [facility] Mean Platelet Volume 10.1 7.6 - 12.9 fL [facility] NRBC% auto 0.0 % [facility] NRBC Absolute 0.000 0.000 - 0.000 x10(3)/mc L [facility] Blood 05/11/2023 4:42 AM EDT 05/11/2023 4:49 AM EDT Narrative Resulting Agency Comment Spec In Lab Klaudia Reid MD HEMATOLOGY OR DERABLES Performing Organization Address [facility] Co de Phone Number [facility] [place] [address] * Heparin (unfractionated) Level (05/11/2023 4:42 AM EDT) UF Heparin 0.46 IU/mL [facility] Comment: Heparin (anti-Xa) levels should [...] LES Performing Organization Address [facility] Co de Phone Number [facility] [place] [address] * (ABNORMAL) Comprehensive metabolic panel (non-fasting) (05/11/2023 4:42 AM EDT) Glucose 143 65 - 199 mg/dL [facility] Comment:Diabetes: >=200 mg/d L plus symptoms Blood Urea Nitrogen 42(H) 8 - 18 mg/dL [facility] Creatinine 1.24(H) 0.70 - 1.20 mg/dL [facility] Sodium 134(L) 135 - 145 mmol/L [facility] Potassium 4.6 3.5 - 5.0 mmol/L [facility] Comment: Please note: ??Patients with WBC >100,000 may have falsely elevated Potassium levels. ??For accurate Potassium quantification in these patients send serum separator tube (gold top) for subsequent determinations. ??Contact the Clinical Chemistry Laboratory if there are any questions. Chloride 99 98 - 107 mmol/L [facility] Carbon Dioxide 14(L) 22 - 31 mmol/L [facility] Anion Gap 21(H) 5 - 15 mmol/L [facility] Calcium 9.6 8.5 - 10.5 mg/dL [facility] Protein, Total 7.2 6.1 - 8.0 g/dL [facility] Albumin 3.7 3.2 - 5.2 g/dL [facility] Aspartate Aminotransferase 144(H) 0 - 30 unit/L [facility] Comment:result rechecked-ssc Alanine Aminotransferase 130(H) 0 - 30 unit/L [facility] Comment:result rechecked-ssc Alkaline Phosphatase 72 35 - 105 unit/L [facility] Bilirubin, Total 0.8 0.2 - 1.3 mg/dL [facility] Est Glomerular Filtration Rate 48(L) [...] MD CHEMISTRY ORDERABL ES [facility] [place] [address] * EKG 12 Lead (05/10/2023 1:16 PM EDT) Ventricular rate 118 BPM MUSE SYSTEM Atrial Rate 118 BPM MUSE SYSTEM P-R Interval 152 ms MUSE SYSTEM QRS Duration 104 ms MUSE SYSTEM Q-T Interval 316 ms MUSE SYSTEM QTC Calculated (Bezet) 442 ms MUSE SYSTEM Calculated P [place] 29 degrees MUSE SYSTEM Calculated R [place] 18 degrees MUSE SYSTEM Calculated T [place] -173 degrees MUSE SYSTEM INTERPRETATION Sinus tachycardia [...] Anterior leads Confirmed by MD Villareal Danette ([id number]) on 05/10/2023 8:47:46 PM MUSE SYSTEM 05/10/2023 1:16 PM EDT 05/10/2023 8:47 PM EDT Juan Luis Gonzalez MD ECG ORDERABLES MUSE SYSTEM * Lactate, whole blood, send to lab ([facility] (05/10/2023 11:52 AM EDT) Lactate WB 1.8 0.5 - 2.2 mmol/L [facility] Blood 05/10/2023 11:5 2 AM EDT 05/10/2023 12:13 PM EDT Narrative Resulting Agency Comment Spec In Lab Juan Luis Gonzalez MD CHEMISTRY ORDERABLES [facility] [place] [address] * XR Chest One View (05/10/2023 11:16 [...] who have questions please contact the health tree care foreman that requested your imaging first. ? Electronically signed by: ALIX RUVALCABA MD, [facility] ([phone]), at 05/10/2023 1:25 PM Narrative 05/10/2023 1:25 [...] patients who have questions please contactthe health tree care foreman that requested your imaging first. Electronically signed by: ALIX RUVALCABA MD, [facility]([phone]), at 05/10/2023 1:25 PM Juan Luis Gonzalez MD IMG DX ORDERABLES * EKG 12 Lead (05/10/2023 7:59 AM EDT) Ventricular rate 115 BPM MUSE SYSTEM Atrial Rate 115 BPM MUSE SYSTEM P-R Interval 142 ms MUSE SYSTEM QRS Duration 102 ms MUSE SYSTEM Q-T Interval 322 ms MUSE SYSTEM QTC Calculated (Bezet) 445 ms MUSE SYSTEM Calculated P [place] 36 degrees MUSE SYSTEM Calculated R [place] 28 degrees MUSE SYSTEM Calculated T [place] -119 degrees MUSE SYSTEM INTERPRETATION Sinus tachycardia [...] EDT) Pathologist [facility] Neutrophil % 77.1 % [facility] Neutrophil Absolute 4.01 1.70 - 6.10 x10(3)/mc L [facility] Lymph % 14.0 % [facility] Lymphocytes Abs 0.7(L) 0.9 - 3.2 x10(3)/mc L [facility] Monocyte % 7.7 % [facility] Monocyte Abs 0.4 0.3 - 0.9 x10(3)/mc L [facility] Eos % 0.4 % [facility] Eosinophils Abs 0.0 0.0 - 0.4 x10(3)/mc L [facility] Basophil % 0.4 % [facility] Baso Absolute 0.0 0.0 - 0.1 x10(3)/mc L [facility] Immature Gran % 0.40 % [facility] Comment: Immature granulocytes(IG's)percentage and absolute count will include metamyelocytes, myelocytes, and promyelocytes. Blood smears from CBCs yielding IG's will be scanned manually for concordance. If this scan disagrees with the automated IG or if promyelocytes are noted, a manual differential will be performed. Immature Gran Absolute 0.02 0.00 - 0.04 x10(3)/mc L [facility] Blood 05/10/2023 2:28 AM EDT 05/10/2023 2:57 AM EDT Narrative Resulting Agency Comment Spec In Lab Klaudia Reid MD HEMATOLOGY OR DERABLES [facility] [place] [address] * (ABNORMAL) Hemogram (05/10/2023 2:28 AM EDT) White Blood Cell 5.2 4.0 - 9.5 x10(3)/mc L [facility] Red Blood Cell 3.11(L) 4.00 - 5.21 x10(6)/ L [facility] Hemoglobin 10.2(L) 11.7 - 15.5 g/dL [facility] Hematocrit 30.2(L) 35.7 - 45.8 % [facility] Mean Cell Volume 97.1(H) 82.6 - 94.4 fL [facility] Mean Cell Hemoglobin 32.8(H) 27.1 - 32.0 pg [facility] Mean Cell Hemoglobin Concentration 33.8 31.7 - 35.0 g/dL [facility] Platelet 151 145 - 357 x10(3)/mc L [facility] RDW Standard Deviation 44.9 37.0 - 46.0 fL [facility] RDW coefficient of variation 12.8 11.5 - 14.1 % [facility] Mean Platelet Volume 9.8 7.6 - 12.9 fL [facility] NRBC% auto 0.0 % [facility] NRBC Absolute 0.000 0.000 - 0.000 x10(3)/mc L [facility] Blood 05/10/2023 2:28 AM EDT 05/10/2023 2:57 AM EDT Narrative Resulting Agency Comment Spec In Lab Klaudia Reid MD HEMATOLOGY OR DERABLES [facility] [place] [address] * (ABNORMAL) Comprehensive metabolic panel (non-fasting) (05/10/2023 2:28 AM EDT) Glucose 100 65 - 199 mg/dL [facility] Comment:Diabetes: >=200 mg/d L plus symptoms Blood Urea Nitrogen 30(H) 8 - 18 mg/dL [facility] Creatinine 0.90 0.70 - 1.20 mg/dL [facility] Sodium 134(L) 135 - 145 mmol/L [facility] Potassium 4.1 3.5 - 5.0 mmol/L [facility] Comment: Please note: ??Patients with WBC >100,000 may have falsely elevated Potassium levels. ??For accurate Potassium quantification in these patients send serum separator tube (gold top) for subsequent determinations. ??Contact the Clinical Chemistry Laboratory if there are any questions. Chloride 102 98 - 107 mmol/L [facility] Carbon Dioxide 20(L) 22 - 31 mmol/L [facility] Anion Gap 12 5 - 15 mmol/L [facility] Calcium 9.3 8.5 - 10.5 mg/dL [facility] Protein, Total 6.4 6.1 - 8.0 g/dL [facility] Albumin 3.7 3.2 - 5.2 g/dL [facility] Aspartate Aminotransferase 24 0 - 30 unit/L [facility] Alanine Aminotransferase 14 0 - 30 unit/L [facility] Alkaline Phosphatase 70 35 - 105 unit/L [facility] Bilirubin, Total 0.5 0.2 - 1.3 mg/dL [facility] Est Glomerular Filtration Rate 70 [...] ES Performing Organization Address [facility]/[place] [address] * Heparin (unfractionated) Level (05/10/2023 2:28 AM EDT) UF Heparin 0.37 IU/mL [facility] Comment: Heparin [...] MD HEMATOLOGY ORDERAB LES Performing Organization Address City/[facility]/ZIP Co de Phone Number [facility] [place] [address] * (ABNORMAL) Differential, Automated (05/09/2023 4:00 AM EDT) Neutrophil % 81.7 % [facility] Neutrophil Absolute 5.26 1.70 - 6.10 x10(3)/mc L [facility] Lymph % 10.7 % [facility] Lymphocytes Abs 0.7(L) 0.9 - 3.2 x10(3)/mc L [facility] Monocyte % 6.5 % [facility] Monocyte Abs 0.4 0.3 - 0.9 x10(3)/[facility] LABORATORY Eos % 0.5 % [facility] Eosinophils Abs 0.0 0.0 - 0.4 x10(3)/[facility] LABORATORY Basophil % 0.3 % [facility] Baso Absolute 0.0 0.0 - 0.1 x10(3)/[facility] LABORATORY Immature Gran % 0.30 % [facility] Comment: Immature granulocytes(IG's)percentage and absolute count will include metamyelocytes, myelocytes, and promyelocytes. Blood smears from CBCs yielding IG's will be scanned manually for concordance. If this scan disagrees with the automated IG or if promyelocytes are noted, a manual differential will be performed. Immature Gran Absolute 0.02 0.00 - 0.04 x10(3)/[facility] LABORATORY Blood 05/09/2023 4:00 AM EDT 05/09/2023 4:19 AM EDT Narrative Resulting Agency Comment Spec In Lab Klaudia Reid MD HEMATOLOGY OR DERABLES Performing Organization Address City/State/[facility] Co de Phone Number [facility] [place] [address] * (ABNORMAL) Hemogram (05/09/2023 4:00 AM EDT) White Blood Cell 6.4 4.0 - 9.5 x10(3)/ L [facility] Red Blood Cell 3.15(L) 4.00 - 5.21 x10(6)/[facility] LABORATORY Hemoglobin 10.2(L) 11.7 - 15.5 g/dL [facility] Hematocrit 30.3(L) 35.7 - 45.8 % [facility] Mean Cell Volume 96.2(H) 82.6 - 94.4 fL [facility] Mean Cell Hemoglobin 32.4(H) 27.1 - 32.0 pg [facility] Mean Cell Hemoglobin Concentration 33.7 31.7 - 35.0 g/dL [facility] Platelet 151 145 - 357 x10(3)/mc L [facility] RDW Standard Deviation 44.7 37.0 - 46.0 fL [facility] RDW coefficient of variation 12.8 11.5 - 14.1 % [facility] Mean Platelet Volume 9.4 7.6 - 12.9 fL [facility] NRBC% auto 0.0 % [facility] NRBC Absolute 0.000 0.000 - 0.000 x10(3)/mc L [facility] Blood 05/09/2023 4:00 AM EDT 05/09/2023 4:19 AM EDT Narrative Resulting Agency Comment Spec In Lab Klaudia Reid MD HEMATOLOGY OR DERABLES [facility] [place] [address] * Heparin (unfractionated) Level (05/09/2023 4:00 AM EDT) UF Heparin 0.47 IU/mL [facility] Comment: Heparin (anti-Xa) levels should [...] MD HEMATOLOGY ORDERAB LES [facility] [place] [address] * (ABNORMAL) Comprehensive metabolic panel (non-fasting) (05/09/2023 4:00 AM EDT) Glucose 108 65 - 199 mg/dL [facility] Comment:Diabetes: >=200 mg/d L plus symptoms Blood Urea Nitrogen 31(H) 8 - 18 mg/dL [facility] Creatinine 1.03 0.70 - 1.20 mg/dL [facility] Sodium 137 135 - 145 mmol/L [facility] Potassium 4.4 3.5 - 5.0 mmol/L [facility] Comment: Please note: ??Patients with WBC >100,000 may have falsely elevated Potassium levels. ??For accurate Potassium quantification in these patients send serum separator tube (gold top) for subsequent determinations. ??Contact the Clinical Chemistry Laboratory if there are any questions. Chloride 102 98 - 107 mmol/L [facility] Carbon Dioxide 20(L) 22 - 31 mmol/L [facility] Anion Gap 15 5 - 15 mmol/L [facility] Calcium 9.3 8.5 - 10.5 mg/dL [facility] Protein, Total 6.6 6.1 - 8.0 g/dL [facility] Albumin 3.8 3.2 - 5.2 g/dL [facility] Aspartate Aminotransferase 32(H) 0 - 30 unit/L [facility] Alanine Aminotransferase 18 0 - 30 unit/L [facility] Alkaline Phosphatase 78 35 - 105 unit/L [facility] Bilirubin, Total 0.5 0.2 - 1.3 mg/dL [facility] Est Glomerular Filtration Rate 60 [...] MD CHEMISTRY ORDERABL ES Performing Organization Address City/[facility]/ZIP Co de Phone Number [facility] [place] [address] * (ABNORMAL) pro-Brain Natriuretic Peptide (05/08/2023 4:00 PM EDT) NT-proBNP 25,503(H) <=124 pg/mL [facility] Blood Venous Draw / Unknown 05/08/2023 4:00 PM EDT 05/08/2023 4:25 PM EDT Narrative Resulting Agency Comment Spec In Lab Juan Luis Gonzalez MD CHEMISTRY ORDERABLES Performing Organization Address [facility] Co de Phone Number [facility] [place] [address] * Magnesium (05/08/2023 4:00 PM EDT) Magnesium 0.82 0.69 - 1.07 mmol/L [facility] Blood 05/08/2023 4:00 PM EDT 05/08/2023 4:06 PM EDT Narrative Resulting Agency Comment Spec In Lab Enrique Chua MD CHEMISTRY ORDERABLES Performing Organization Address [facility] Co de Phone Number [facility] [place] [address] * Potassium (05/08/2023 4:00 PM EDT) Potassium [...] MD CHEMISTRY ORDERABL ES Performing Organization Address [facility] Co de Phone Number [facility] [place] [address] * Heparin (unfractionated) Level (05/08/2023 4:00 PM EDT) Pathologist [facility] UF Heparin 0.43 IU/mL [facility] Comment: Heparin [...] LES Performing Organization Address [facility] Co de Phone Number [facility] [place] [address] * EKG 12 Lead (05/08/2023 3:51 PM EDT) Ventricular rate 98 BPM MUSE SYSTEM Atrial Rate 98 BPM MUSE SYSTEM P-R Interval 150 ms MUSE SYSTEM QRS Duration 102 ms MUSE SYSTEM Q-T Interval 358 ms MUSE SYSTEM QTC Calculated (Bezet) 457 ms MUSE SYSTEM Calculated P [place] 38 degrees MUSE SYSTEM Calculated R [place] 48 degrees MUSE SYSTEM Calculated T [place] -112 degrees MUSE SYSTEM INTERPRETATION Sinus rhythm with frequent and consecutive Premature ventricular and fusion complexes Septal infarct , age undetermined ST & T wave abnormality, consider anterolateral ischemia Abnormal ECG When compared with ECG of 09-NOV-2022 11:17, T wave inversion now evident in Anterolateral leads Confirmed by MD Harshil, Enrique Bell ([id number]) on 05/10/2023 8:11:46 AM MUSE SYSTEM 05/08/2023 3:51 PM EDT 05/10/2023 8:11 AM EDT Radha Hollins MD ECG ORDERABLES MUSE SYSTEM * (ABNORMAL) Differential, Automated (05/08/2023 11:38 AM EDT) [facility]rophil % 71.3 % [facility] Neutrophil Absolute 2.91 1.70 - 6.10 x10(3)/mc L [facility] Lymph % 19.1 % [facility] Lymphocytes Abs 0.8(L) 0.9 - 3.2 x10(3)/mc L [facility] Monocyte % 9.0 % [facility] Monocyte Abs 0.4 0.3 - 0.9 x10(3)/mc L [facility] Eos % 0.2 % [facility] Eosinophils Abs 0.0 0.0 - 0.4 x10(3)/mc L [facility] Basophil % 0.2 % [facility] Baso Absolute 0.0 0.0 - [...] - 0.04 x10(3)/mc L [facility] Blood 05/08/2023 11:3 8 AM EDT 05/08/2023 11:44 AM EDT Narrative Resulting Agency Comment Spec In Lab Lincoln Sal MD HEMATOLOGY ORDERA BLES [facility] [place] [address] * (ABNORMAL) Hemogram (05/08/2023 11:38 AM EDT) White Blood Cell 4.1 4.0 - 9.5 x10(3)/mc L [facility] Red Blood Cell 3.05(L) 4.00 - 5.21 x10(6)/mc L [facility] Hemoglobin 10.2(L) 11.7 - 15.5 g/dL [facility] Hematocrit 29.6(L) 35.7 - 45.8 % [facility] Mean Cell Volume 97.0(H) 82.6 - 94.4 fL [facility] Mean Cell Hemoglobin 33.4(H) 27.1 - 32.0 pg [facility] Mean Cell Hemoglobin Concentration 34.5 31.7 - 35.0 g/dL [facility] Platelet 136(L) 145 - 357 x10(3)/mc L [facility] RDW Standard Deviation 44.3 37.0 - 46.0 fL [facility] RDW coefficient of variation 12.6 11.5 - 14.1 % [facility] Mean Platelet Volume 9.4 7.6 - 12.9 fL [facility] NRBC% auto 0.0 % [facility]OR[facility] NRBC Absolute 0.000 0.000 - 0.000 x10(3)/mc L [facility] Blood 05/08/2023 11:3 8 AM EDT 05/08/2023 11:44 AM EDT Narrative Resulting Agency Comment Spec In Lab Lincoln Sal MD HEMATOLOGY ORDERA BLES [facility] [place] [address] * TSH (05/08/2023 11:38 AM EDT) Thyroid Stimulating Hormone 1.27 0.27 - 4.20 mcIU/mL [facility] Comment: Reference Interval (mcIU/mL): Females: ??First Trimester: 0.23-3.88 ??Second Trimester: 0.22-3.90 ??Third Trimester: 0.44-4.66 Blood 05/08/2023 11:3 8 AM EDT 05/08/2023 11:44 AM EDT Narrative Resulting Agency Comment Spec In Lab Enrique Chua MD CHEMISTRY ORDERABLES Performing Organization Address City/[facility]/ZIP Co de Phone Number [facility] [place] [address] * (ABNORMAL) Phosphorus (05/08/2023 11:38 AM EDT) Phosphorus 4.7(H) 2.5 - 4.5 mg/dL [facility] Blood 05/08/2023 11:3 8 AM EDT 05/08/2023 11:44 AM EDT Narrative Resulting Agency Comment Spec In Lab Enrique Chua MD CHEMISTRY ORDERABLES Performing Organization Address [facility] Co de Phone Number [facility] [place] [address] * Magnesium (05/08/2023 11:38 AM EDT) Magnesium 0.76 0.69 - 1.07 mmol/L [facility] Blood 05/08/2023 11:3 8 AM EDT 05/08/2023 11:44 AM EDT Narrative Resulting Agency Comment Spec In Lab Enrique Chua MD CHEMISTRY ORDERABLES Performing Organization Address [facility] Co de Phone Number [facility] [place] [address] * (ABNORMAL) Basic Metabolic Panel (non-fasting) (05/08/2023 11:38 AM EDT) Glucose 97 65 - 199 mg/dL [facility] Comment:Diabetes: >=200 mg/d L plus symptoms Blood Urea Nitrogen 27(H) 8 - 18 mg/dL [facility] Creatinine 1.02 0.70 - 1.20 mg/dL [facility] Sodium 139 135 - 145 mmol/L [facility] Potassium 4.2 3.5 - 5.0 mmol/L [facility] Comment: Please note: ??Patients with WBC >100,000 may have falsely elevated Potassium levels. ??For accurate Potassium quantification in these patients send serum separator tube (gold top) for subsequent determinations. ??Contact the Clinical Chemistry Laboratory if there are any questions. Chloride 105 98 - 107 mmol/L [facility] Carbon Dioxide 20(L) 22 - 31 mmol/L [facility] Anion Gap 14 5 - 15 mmol/L [facility] Calcium 9.4 8.5 - 10.5 mg/dL [facility] Est Glomerular Filtration Rate 60 [...] Chua MD CHEMISTRY ORDERABLES [facility] [place] [address] * ECHO COMPLETE (05/08/2023 11:02 AM EDT) EF 25 [facility]ART[facility] SYSTEM Anatomical Region Laterality Modality Cardiac Other 05/08/2023 10:0 3 AM EDT Narrative 05/08/2023 11:51 AM EDT ? Echocardiogram Report Name: PURNIMA THACKER ?Study Date: 05/08/2023 10:03 AMBP: 92/64 mmHg ? Patient Location: [facility]^CV29^A : 1955 ? Height: 155 cm ? Account: [id number] Age: 67 yrs ? Weight: 78 kg [...] worsening stenosis. Mitral regurgitation is similar. Procedure Complete-81641. Satisfactory quality. There is normal sinus rhythm. [...] Study Date: 0:03 AMBP: 92/64 mmHg Patient Location:[facility]^CV29^A : 1955 Height: 155 cm Account: [id number] Age: 67 yrs Weight: 78 kg Gender: [...] suggestsworsening stenosis. Mitral regurgitation is similar. Procedure Complete-[id number]. Satisfactory quality. There is normal sinus rhythm. 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 flush protocol Rate/Dose Verify 05/13/2023 6:00 AM EDT 10 mL/hr 10 mL/hr Rate/Dose Verify 05/13/2023 4:00 AM EDT 10 mL/hr 10 mL/h r Rate/Dose Verify 05/13/2023 2:00 AM EDT 10 mL/hr 10 mL/h r sodium chloride 0.9% infusion 10-30 mL/hr, Intravenous, DAILY PRN, Starting on Wed05/12/23 at 0944, Until Wed05/17/23 at 0831, Side port TKO rate, per [facility] flush protocol. Rate/Dose Verify 05/17/2023 8:00 [...] post-op day 1 in the AM Give ID if unable to take PO, Routine Group [...] Routine documented in this encounter Care Teams Burglar Alarm Installer Relationship Specialty Start Date End Date Magdalena Acosta MD [address] [place] [address] PCP - General Family Medicine 02/05/23 documented as of this encounter
--- OUTSIDE RECORDS SUMMARY | 2024-07-15 12:30 | XMS_ITS | Encounter Summary ---
Author Organization [place] [id number] Care Team Providers Care Intensive Care Unit Nurse Name Role Phone Magdalena Acosta MD Primary Care Provider [phone] Reason for Visit * Auth/Cert (Routine) Specialty Diagnoses / Procedures Referred By Contac t Referred To Contact Diagnoses Symptomatic severe aortic stenosis with low ejection fraction NSTEMI, CHF Haris Chua MD [facility] [place] [address] [facility] Referral ID Status Reason Start Date Expiration Date Visits Re quested Visits Authorized [id number] 1 1 Encounter Details Date Type Department Care Team (Late st Contact Info) Description 05/12/2023 7:35 AM EDT Anesthesia Event [place] [address] Lynda Mcgowan MD [facility] [place] [address] Alie Park MD [facility] [place] [address] Anesthesia Record Procedure Summary Procedure Name Responsible [...] cephalic vein (lateral side of arm), left; [id number] catheter system; Anatomical Landmarks; US Not Used; [...] vein, right; introducer; 05/15/23; 18405/12/23 0030 by Noeren Deutsch RN 05/15/23 184 by Luis Felipe Parra RN LDA Cath/EP Sheath 05/12/23; 0733; 14 Vietnamese (Fr); Right; Femoral; Arterial 05/12/23 0733 by Guerda Bender, RN 05/12/23 0830 by Guerda Bender RN LDA Cath/EP Sheath 05/12/23; 0734; 6 Vietnamese (Fr); Right; Femoral; Venous 05/12/23 0734 by Guerda Bender RN 05/12/23 0817 by Guerda Bender RN LDA Cath/EP Sheath 05/12/23; 0734; 7 Vietnamese (Fr); Left; Femoral; Arterial 05/12/23 0734 by Guerda Bender, RN 05/12/23 0837 by Guerda Bender RN LDA Cath/EP Sheath 05/12/23; 0734; 6 Vietnamese (Fr); Left; Femoral; Venous 05/12/23 0734 by [...] Procedure Summary Date: 05/12/23 Room / Location: [facility] [address] [place] [address] CATH LABS Anesthesia Start: 734 Anesthesia Stop: [...] All Anesthesia Providers: Anesthesiologist: Lynda Mcgowan MD Higher Education Administrator: Nico Graham MD Vitals Value Taken Time [...] 05/08/2023 ??? Mild coronary artery disease by [facility] 11/09/2022 05/08/2023 ??? Heart failure with reduced [...] [facility] [place],POSSIBLE PCI (WRVU 5.6) performed by Nitesh Escobedo MD at [facility] CATH LABS ??? PRO AORTOPLAS FOR SUPRAVALV STEN N/A 09/21/2016 @AORTOPLASTY FOR SUPRAVALVULAR STENOSIS (WRVU 29.33) performed by Alirio Esparza MD at [facility] MAIN OR ??? PRO REPLACEMENT PROSTHETIC AORTIC VALVE OPEN W CARDIOPULMONARY BYPASS HOMOGRF/STENT N/A 09/21/2016 @REPLACE AORTIC VALVE, OPEN, W\CPB, W\PROSTHETIC VALVE (WRVU 41.32) performed by Alirio Esparza MD at [facility] MAIN OR Social History Tobacco Use [...] 3 general, with a(n) intravenous induction Add-on [id number] TAVR. In cardiogenic shock. Has arterial line, [...] 11/02/2024 12:00 PM EDT Appointment [place] [address] 11/02/2024 1:00 PM EDT Office Visit [place] [phone] Magdalena Peralta MD [facility] [place] [address] 03/01/2025 4:15 PM EDT Office Visit Dermatology at [place] [address] [place] [phone] Marek Bonilla MD [address], [place] [address] documented as of this encounter Visit Diagnoses [...] mL/hr documented in this encounter Care Teams Intensive Care Unit Nurse Relationship Specialty Start Date End Date Magdalena Acosta MD [address] [place] [address] PCP - General Family Medicine 02/05/23 documented as of this encounter
--- OUTSIDE RECORDS SUMMARY | 2024-07-15 12:31 | XMS_ITS | Encounter Summary ---
[place] [address] Care Team Providers Care Ruffler Name Role Phone Magdalena Acosta MD Primary Care Provider [phone] Reason for Visit * Reason Comments Skin Lesion Encounter Details Date Type Department Care Team (Late st Contact Info) Description 04/20/2023 10:00 AM EDT Office Visit Dermatology at [address] [address] Marek Bonilla MD [address] [facility], [place] [address] Seborrheic keratosis Social History Tobacco Use Types [...] cutaneous and ocular 3. Previously told by screen printing machine operator helper that she had corneal tears from [...] PM EDT Appointment [place] [address] 11/02/2024 1:00 PM EDT Office [place] [address] Magdalena Peralta MD [facility] [place] [address] 03/01/2025 4:15 PM EDT Office Visit Dermatology at [address] [address] Marek Bonilla MD [address] [place] [address], [place] [address] documented as of this encounter Visit Diagnoses Diagnosis Seborrheic keratosis Other seborrheic keratosis documented in this encounter Care Teams Ruffler Relationship Specialty Start Date End Date Magdalena Acosta MD [address] [place] [address] PCP - General Family Medicine 02/05/23 documented as of this encounter
--- OUTSIDE RECORDS SUMMARY | 2024-07-15 12:31 | XMS_ITS | Encounter Summary ---
Author Organization [facility] [place] [address] Care Team Providers Care Document Control Assistant Name Role Phone Magdalena Acosta MD [...] 11/02/2024 12:00 PM EDT Appointment [place] [address] 11/02/2024 1:00 PM EDT Office Visit [place] [address] Magdalena Peralta MD [facility] [place] [address] 03/01/2025 4:15 PM EDT Office Visit Dermatology at [address] [place] [address] Marek Bonilla MD [address] [facility], [place] [address] documented as of this encounter Visit Diagnoses Not on filedocumented in this encounter Care Teams Document Control Assistant Relationship Specialty Start Date End Date Magdalena Acosta MD [address] [place] [address] PCP - General Family Medicine 02/05/23 documented as of this encounter
--- OUTSIDE RECORDS SUMMARY | 2024-07-15 12:31 | XMS_ITS | Encounter Summary ---
Author Organization [place] [address] Care Team Providers Care Traffic Maintenance Supervisor Name Role Phone Magdalena Acosta MD Primary Care Provider [phone] Encounter Details Date Type Department Care Team (Late st Contact Info) Description 03/29/2023 Notes Only Cardiology at [address] [phone] Vahid Plasencia, RN Social History Tobacco Use [...] AR; Moderate MR; Trace TR [facility] 11/09/2022: Non obstructive CAD STS 4.1 Plan:Schedule SDM clinic, diagnostics and frailty assessment. documented in this encounter Plan of Treatment Upcoming Encounters Date Type Department Care Team (Late st Contact Info) Description 11/02/2024 12:00 PM EDT [place] [address] 11/02/2024 1:00 PM EDT [place] [phone] Magdalena Peralta MD [facility] [place] [address] 03/01/2025 4:15 PM EDT Office Visit Dermatology at [place] [address] [facility] [place] [phone] Marek Bonilla MD [address], [place] [address] documented as of this encounter Visit Diagnoses Not on filedocumented in this encounter Care Teams Traffic Maintenance Supervisor Relationship Specialty Start Date End Date Magdalena Acosta MD [address] [place] [address] PCP - General Family Medicine 02/05/23 documented as of this encounter
--- OUTSIDE RECORDS SUMMARY | 2024-07-15 12:31 | XMS_ITS | Encounter Summary ---
Author Organization [facility] [place] [address] Care Team Providers Care Nail Mill Worker Name Role Phone Magdalena Acosta MD Primary Care Provider [phone] Encounter Details Date Type Department Care Team (Late st Contact Info) Description 04/27/2023 3:00 PM EDT [place] [address] Magdalena Peralta MD [facility] [place] [address] Mixed connective tissue disease Social History Tobacco [...] 1:5120 speckled; VIC negative; Myositis panel with POURER ab 149.1 (positive); Anti U1RNP IgG 119; [...] 11/02/2024 12:00 PM EDT [place] [address] 11/02/2024 1:00 PM EDT [place] [address] Magdalena Peralta MD [facility] [place] [address] 03/01/2025 4:15 PM EDT Office Visit Dermatology at [place] [address] [place] [address] Marek Bonilla MD [address], [place] [address] documented as of this encounter Visit Diagnoses Diagnosis Mixed connective tissue disease Other specified diffuse disease of connective tissue documented in this encounter Care Teams Nail Mill Worker Relationship Specialty Start Date End Date Magdalena Acosta MD [address] [place] [address] PCP - General Family Medicine 02/05/23 documented as of this encounter
--- OUTSIDE RECORDS SUMMARY | 2024-07-15 12:31 | XMS_ITS | Encounter Summary ---
Author Organization [facility] [place] [address] Care Team Providers Care Nanofabrication Specialist Name Role Phone Magdalena Acosta MD Primary Care Provider [phone] Reason for Visit * Auth/Cert (Routine) Specialty Diagnoses / Procedures Referred By Contac t Referred To Contact Diagnoses Symptomatic severe aortic stenosis with low ejection fraction NSTEMI, CHF Enrique Chua MD [facility] [place] [address] [facility] Referral ID Status Reason Start Date Expiration Date Visits Re quested Visits Authorized [id number] 1 1 Encounter Details Date Type Department Care Team (Late st Contact Info) Description 05/12/2023 2:50 PM EDT - 05/12/2023 3:50 PM EDT Surgery [place] [address] Antelmo Sharma MD [facility] [place] [address] CARDIAC CATHETERIZATION Social History Tobacco Use Types [...] with PCP, Magdalena Acosta MD, or Primary Allergy And Immunology Specialist, Avis Mejia MD, in ~ 7-10 days. Patient to follow up with Nanotechnology Technician, Dr. Antelmo Sharma, in 2 weeks with an EKG, Echo, CBC, and CMP. Patient to follow up with Nephrology, their office to arrange. Ging-Vkasvj-qr interval: After initial 30 day follow-up appointment , all TAVR patients will follow-up again in one year with an echo. 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 INTERVENTIONL RAD PRG CATH PLMT LEFT HEART CATH & ARTS W/INJ & ANGIO IMG S&I N/A 11/09/2022 CORONARY ANGIOGRAPHY; W [facility],POSSIBLE PCI (WRVU 5.6) performed by Mario Alberto Escobedo MD at [facility] CATH LABS PRG COMBINED RIGHT & LEFT HEART CATH W/INJ L VENTRICULOGRAPHY, IMG S&I N/A 05/12/2023 COMBINED RIGHT & LEFT HEART CATH,INC INJ FOR L VENTRICULOGRAPHY (WRVU 5.99) performed by Antelmo Sharma MD at [facility] CATH LABS PRO AORTOPLAS FOR SUPRAVALV STEN N/A 09/21/2016 @AORTOPLASTY FOR SUPRAVALVULAR STENOSIS (WRVU 29.33) performed by Alirio Hudson MD at [facility] MAIN OR PRO REPLACE AORTIC VALVE (TAVR/FEDERICO)PERC FEMORAL ARTERY APPROACH 05/12/2023 @TRANSCATHETER AORTIC VALVE REPLACEMENT (TAVR), PERCUTANEOUS FEMORAL (WRVU 22.47) performed by Alirio Hudson MD at [facility] CATH LABS PRO REPLACEMENT PROSTHETIC AORTIC VALVE OPEN W CARDIOPULMONARY BYPASS HOMOGRF/STENT N/A 09/21/2016 @REPLACE AORTIC VALVE, OPEN, W\CPB, W\PROSTHETIC VALVE (WRVU 41.32) performed by Alirio Hudson MD at [facility] MAIN OR Prior To Admission Medications [...] Major Procedures/Operations: 05/12/23: Successful right transfemoral TAVR Ogrur-cv-Qsfwv with a 23 mm Lai 3 THV. Left coronary protection with left main MINNA. Hospital Course: #Severe prosthetic s/p valve in valve TF TAVR #Low coronary heights s/p left main stent for coronary protection #Type 2 NSTEMI, present on arrival, resolved #Acute decompensated HFrEF #Cardiogenic shock #EVANS / Cardiorenal syndrome Purnima Thacker was admitted to [facility] on 05/08/2023 via the Cardiology [...] and she was brought to the cardiac catheterization technologist the following morning where Drs. Alirio [...] if you have questions. Please call your Nanotechnology Technician's office if you have any discharge or drainage from your procedural sites. Your Nanotechnology Technician, Dr. Antelmo Sharma and/or the Event Specialist Food Demonstrator may be reached at . Antibiotic prophylaxis: You will need to take antibiotics prior to many invasive tests and treatments, such as dental cleaning, which should be done every 6 months. Your primary care physician or your dentist can prescribe this medication. Please refer to the card with the [employer] Guidelines for more information. You have been provided with a copy of this card. Please refer to the [place] [employer] Guidelines for more information. Good [...] should resume a low fat, low cholesterol, [employer] Diet Driving: No restrictions. Shower/Bath: You may shower daily. No baths, soaking, or swimming for the first week. Wound care: Wash the sites daily with soap and rinse well, pat dry. Assess for any signs of infection such as increased redness, pain, warmth or drainage. Please call your solar sales manager's office if you have any discharge or drainage from your procedural sites. If there is a lot of swelling, apply mamta wraps during the day and remove at bedtime. Elevate your legs when you are sitting. Home oxygen therapy: N/A Follow up appointments: Please schedule a follow-up appointment with your PCP, Magdalena Acosta MD, or Primary Allergy And Immunology Specialist in ~ 7-10 days. You have a follow-up appointment with your Nanotechnology Technician, Dr. Antelmo Sharma, in 2 weeks with an EKG, Echo, and labs prior to your appointment. You will need follow-up with Nephrology, their office will arrange. Zmyj-Rfggag-ak interval: After initial 30 day follow-up appointment , all TAVR patients will follow-up again in one year with an echo. Cardiac Rehabilitation: Purnima Thacker was seen today regarding participation in the outpatient Phase 2 Cardiac Rehabilitation at [facility]. The patient agrees to a referral to this program. The referral will be sent at discharge and the patient should be contacted by the Program within 1- 2 weeks from discharge. Future Appointments and Orders Future Appointments and Orders Future Appointments Provider Department Dept Phone 07/29/2023 11:00 AM Magdalena Peralta MD Rheumatology at [facility] Arrive at: Retail Service Technician Area [phone] 02/11/2024 2:00 PM Marek Bonilla MD Dermatology at [facility] Arrive at: [facility] [address] [phone] Future Orders Complete By Expires Type and Screen Future Surgery, [facility] SAME DAY PROGRAM ONLY) [[id number] Custom] 05/11/2023 Process Instructions: This test is intended ONLY for patients with upcoming surgery for testing prior to the day of surgery obtained through the same day program (4V or SDP). For ALL OTHER PATIENTS, order a Type and Screen (TOC515) This order includes the physician order for an ABO Recheck if requested by the Blood Bank. Scheduling Instructions: Comments: Questions: Date of surgery: CBC (with Diff) [HMV850 Custom] 06/05/2023 12/05/2023 Process Instructions: INCLUDES: WBC, RBC, Hgb, Hct, Platelets, RBC Indices and Differential Scheduling Instructions: Comments: Questions: Comprehensive metabolic panel (non-fasting) [LAB17 Custom] 06/05/2023 08/20/2023 Process Instructions: INCLUDES: Calcium, T Protein, Albumin, AST, ALT, Alk Phos, T Bili, BUN, Creat, GFR, Glucose, Lytes. Scheduling Instructions: Comments: Questions: Echocardiogram Transthoracic [92308 CPT(R)] 06/05/2023 12/05/2023 Process Instructions: Scheduling Instructions: Questions: Where will study be performed?: [facility] Clinics Does the patient have Congenital Heart Disease?: Does patient require sedation?: GA rationale: EKG 12 Lead [14323 CPT(R)] 06/05/2023 12/05/2023 Process Instructions: Scheduling Instructions: Questions: Which location will this be performed?: [place] Is a rhythm strip needed?: No [employer] [EQ161 Custom] As directed Process Instructions: Scheduling Instructions: Questions: Device Needed: WALKER (E0143) Patient Height (cm): 154.9 cm (5' 0.98) Patient Weight: 75.4 kg (166 lb 3.2 oz) Diagnosis: Unsteady gait when walking Referral to Cardiac Rehab [MIO231 Custom] As directed Process Instructions: If no progress note charted, please enter Clinical details in comments. Scheduling Instructions: Questions: My question or request is: s/p TAVR. Cardiac rehab at [facility]. Referral to Home Health [REF34 Custom] As directed Process Instructions: If no progress note charted, please enter Clinical details in comments. Scheduling Instructions: Comments: DOCUMENTATION FOR VNA SERVICES PATIENT'S LOCATION: Purnima Thacker [address] [place] [address] [phone] (home) Guest Relations Representative's Name: Irineo and brother Raymond In discussion with the attending physician, it is certified that this patient is under his/her careand that MD, or an GLASS WOOL BLANKET MACHINE FEEDER, BREEDING MANAGER, or PA who is working directly with him/her, had a ijty-oz-fdau encounter that meets the physician kbaz-la-zqop encounter requirements with this patient on 05/22/2023. [...] for managing ADLs. HOME HEALTH CARE AGENCY: [facility]. [address] [facility] [address] PHONE: [phone] FAX: [phone] Start of care: Ideally 24-48 hours after [...] patient's PCP: Magdalena Acosta MD [address] [facility] [phone] All VNA agencies which cover the area of patient's residence have been reviewed, either verbally joao writing, and patient has chosen the home health care agency noted. Questions: Disciplines Requested: Physical Therapy Occupational Therapy Discharge References/Attachments None Arrangements for VNA/home care: As above. (delete if no VNA) Signed: EKATERINA NAVARRETE [facility] Section of Cardiac Surgery Date: 05/22/2023 CC: Magdalena Acosta MD KilaMario Alberto maxwell MD [address] [place] [address] [place] [address] documented in this encounter Discharge Instructions * Patient Instructions* Vinod Juárez PA - 05/22/2023 9:32 AM EDT TAVR Discharge Instructions: Call your doctor if: You have a fever of greater than 101 degrees, shaking chills, if you develop redness or drainage from your procedure sites, or if you have questions. Please call your Nanotechnology Technician's office if you have any discharge or drainage from your procedural sites. Your Nanotechnology Technician, Dr. Antelmo Sharma and/or the Event Specialist Food Demonstrator may be reached at . Antibiotic prophylaxis: You will need to take antibiotics prior to many invasive tests and treatments, such as dental cleaning, which should be done every 6 months. Your primary care physician or your dentist can prescribe this medication. Please refer to the card with the [place] Guidelines for more information. You have been provided with a copy of this card. Please refer to the [place] [employer] Guidelines for more information. Good [...] should resume a low fat, low cholesterol, [employer] Diet Driving: No restrictions. Shower/Bath: You may shower daily. No baths, soaking, or swimming for the first week. Wound care: Wash the sites daily with soap and rinse well, pat dry. Assess for any signs of infection such as increased redness, pain, warmth or drainage. Please call your solar sales manager's office if you have any discharge or drainage from your procedural sites. If there is a lot of swelling, apply mamta wraps during the day and remove at bedtime. Elevate your legs when you are sitting. Home oxygen therapy: N/A Follow up appointments: Please schedule a follow-up appointment with your PCP, Magdalena Acosta MD, or Primary Allergy And Immunology Specialist in ~ 7-10 days. You have a follow-up appointment with your Nanotechnology Technician, Dr. Antelmo Sharma, in 2 weeks with an EKG, Echo, and labs prior to your appointment. You will need follow-up with Nephrology, their office will arrange. Cmpx-Mlcorl-pk interval: After initial 30 day follow-up appointment , all TAVR patients will follow-up again in one year with an echo. Cardiac Rehabilitation: Purnima M Kirstie was seen today regarding participation in the outpatient Phase 2 Cardiac Rehabilitation at [facility]. The patient agrees to a referral to [...] ins ( tef) Haven Ba, PT Pager: [phone] Physical Therapy Inpatient Rehabilitation Department * Nico [...] 0600 and on the weekends please page [phone]. * Jory Paniagua - 05/20/2023 3:52 PM [...] vomiting Last Bowel Movement: 05/20/23 Jory Paniagua Commercial Escrow Assistant * Tong Mike, OT - 05/20/2023 [...] Tube Placement Right 05/18/2023 Laure Ricks PA [facility] INTERVENTIONL RAD PRG CATH PLMT LEFT HEART CATH & ARTS W/INJ & ANGIO IMG S&I N/A 11/09/2022 CORONARY ANGIOGRAPHY; W [facility],POSSIBLE PCI (WRVU 5.6) performed by Mario Alberto Escobedo MD at [facility] CATH LABS PRG COMBINED RIGHT & LEFT HEART CATH W/INJ L VENTRICULOGRAPHY, IMG S&I N/A 05/12/2023 COMBINED RIGHT & LEFT HEART CATH,INC INJ FOR L VENTRICULOGRAPHY (WRVU 5.99) performed by Antelmo Sharma MD at [facility] CATH LABS PRO AORTOPLAS FOR SUPRAVALV STEN N/A 09/21/2016 @AORTOPLASTY FOR SUPRAVALVULAR STENOSIS (WRVU 29.33) performed by Alirio Hudson MD at [facility] MAIN OR PRO REPLACE AORTIC VALVE (TAVR/FEDERICO)PERC FEMORAL ARTERY APPROACH 05/12/2023 @TRANSCATHETER AORTIC VALVE REPLACEMENT (TAVR), PERCUTANEOUS FEMORAL (WRVU 22.47) performed by Alirio Hudson MD at [facility] CATH LABS PRO REPLACEMENT PROSTHETIC AORTIC VALVE OPEN W CARDIOPULMONARY BYPASS HOMOGRF/STENT N/A 09/21/2016 @REPLACE AORTIC VALVE, OPEN, W\CPB, W\PROSTHETIC VALVE (WRVU 41.32) performed by Alirio Hudson MD at [facility] MAIN OR Social History: Patient lives alone. Home Setup: Pt lives on one level with tub shower and three steps to enter. DME: none used CLOTH BRUSHING AND SUEDING SUPERVISOR Baseline ADL/Mobility: Independent with ADLs and [...] awareness: WFL Vision & Perception: corrective lenses bolt machine operator Communication: WFL Range of motion, strength, [...] Discharge planning. Total Minutes, Occupational Therapy: 28 ([phone]) OT Evaluation Code Rationale: Diagnosis & Pertinent Co-Morbidities affecting Plan of Care: see PMHx Occupational Profile & Client History: Brief Expanded Extensive x Assessment of Occupational Performance: 1-3 performance deficits 3-5 performance deficits x 5 + performance deficits Clinical Decision Making: Low Moderate High x Clinical decision making of moderate complexity using standardized patient assessment instrument and measurable assessment of functional outcome. Pager: [phone] TONG MIKE OT 05/20/2023 Occupational Therapy Rehabilitation [...] 0600 and on the weekends please page [phone]. * Rylie Rodriguez MD - 05/19/2023 3:59 [...] and plan. Cynthia Blackburn MD Nephrology Pager: [phone] * Diana Espino - 05/19/2023 1:49 PM EDT Physical Anthropologist Encounter Note Patient Name: Purnima Thacker : [id number] MR#: [id number] Admit Date: 05/08/2023 9:14 AM Hospital Day [...] as stated. Total Minutes, Physical Therapy: 38 ([phone]) Henrik Navarrete PTA Pager: [phone] Physical Therapy Inpatient Rehabilitation Department * Nico [...] 0600 and on the weekends please page [phone]. * Laure Ricks PA - 05/19/2023 7:56 [...] Ricks PA-C Interventional Radiology IR Team Pager [phone] * Consuelo Espinoza RN - 05/18/2023 4:13 PM EDT ANGIO NURSING DATABASE Name: Purnima Thacker Date of : 1955 AGE: 67 y.o. Address: [address] [place] [phone] (home) Mobile: No relevant phone numbers on [...] fraction I35.0 Mild coronary artery disease by [facility] 11/09/2022 I25.10 Heart failure with [...] MD Nephrology Pager: [phone] * Magdalena Puri, BIT TRIPOLER - 05/18/2023 10:51 AM EDT Images from the original note were not included. [facility] [place] [phone] STRUCTURAL HEART DISEASE CONSULTATION NOTE PRIMARY CARE [...] stenosis. She is now status post TAVR Wlrft-qn-Thcnj with a 23 mm Lai 3 THV 05/12/[address] Sharma. Preliminary findings: Successful right transfemoral TAVR Fjuzr-uh-Nhbno with a 23 mm Lai 3 THV. [...] ejection fraction Mild coronary artery disease by [facility] 11/09/2022 Heart failure with reduced [...] stenosis. She is now status post TAVR Ewiyg-da-Vbssr with a 23 mm Lai 3 THV 05/12/[address] Sharma. Janet TAVR case notable for coronary LAD protective MINNA. Status post TAVR, the patient was transferred to [facility] for pressor and inotropic support. Pressors [...] Magdalena Puri APRN Structural Heart Team Pager [phone] Team Office Please see addendum by Dr. Sharma for final plan and recommendations Associated attestation - Antelmo Sharma MD - 05/19/2023 10:52 PM EDT I have reviewed Magdalena Puri APRN's above history and I agree with the details as written. The assessment and plan were formulated in discussion with me and I agree with them as documented. Antelmo Sharma MD Pager [phone] * Nico Palacios PA - 05/18/2023 8:13 [...] 0600 and on the weekends please page [phone]. * Loli Hernandez, PT - 05/17/2023 5:27 [...] plan as stated. Time IN / OUT: 1736-0435 Total Minutes, Physical Therapy: 54 Billing Code: te-sx2, te-f, angely HERNANDEZ PT Pager: [phone] Physical Therapy Inpatient Rehabilitation Department * Cynthia [...] Well controlled. Cynthia Blackburn MD Nephrology Pager: [phone] * Maggie, Mara, ANURAG - 05/17/2023 8:26 [...] 0600 and on the weekends please page [phone]. * CurtistierneymeccaGuerda C - 05/16/2023 10:44 AM EDT Nutrition Services Note - Low Nutrition Acuity Purnima Thacker is a 67 y.o. female Reason for intervention: hospital day 9 Nutrition Plan: Continue diet order Encourage good PO Lasix and Zofran noted Added special serve: open containers Monitor weight Patient scheduled for a hospital day 9 nutrition evaluation. Manager Math met with pt at bedside. Pt reports that her appetite and PO has much improved since admission. Denies nausea/vomiting or trouble chewing/swallowing. Manager Math provided snack list but pt not interested in adding snacks at this time. Her only concern was that she is worried that she will eat too much which will cause too much pressure in her stomach. Manager Math assured pt and suggested eating smaller but [...] Last Bowel Movement: 05/10/23 Guerda Del Valle Commercial Escrow Assistant * Vinod Juárez PA - 05/16/2023 [...] 0600 and on the weekends please page [phone]. * Michael Jeffers MD - 05/16/2023 8:11 AM EDT Images from the original note were not included. Hypertension-Nephrology Inpatient Follow-up Purnima Thacker [id number] 1955 ID: 67 y.o. old female seen [...] IRONSAT 12 (L) 05/16/2023 SFOLATE >20.0 07/03/2022 [id number] 07/03/2022 Lab Results Component Value Date [...] Dr. Ayoub. Please contact me at phone: [phone] or pager: [phone] with any questions. Michael Jeffers MD Nephrology [...] -Nephrology consulted, labs and renal US ordered -Clarendon removed, ambulated around the unit -bilateral pleural [...] 0600 and on the weekends please page [phone]. * Hortencia Cody MD - 05/15/2023 2:07 [...] not included. Hypertension-Nephrology Inpatient Follow-up Purnima Thacker [id number] 1955 ID: 67 y.o. old female seen [...] HGB 7.8 (L) 05/13/2023 SFOLATE >20.0 07/03/2022 [id number] 07/03/2022 Lab Results Component Value Date [...] Dr. Ayoub. Please contact me at phone: [phone] or pager: [phone] with any questions. Michael Jeffers MD Nephrology [...] last 720 hours. T/L/D Art ETT CVL Taft ASSESSMENT, MANAGEMENT, and DECISION MAKIN y.o. female [...] outlined inthis evaluation. HAVEN BA, PT Pager: [phone] Physical Therapy Inpatient Rehabilitation Department Time IN / OUT: 8508-3782 Total time: Total Minutes, Physical Therapy: 30 [...] 0600 and on the weekends please page [phone]. * Antelmo Sharma MD - 05/14/2023 7:56 AM EDT Images from the original note were not included. [facility] [address] [place], [place] [phone] STRUCTURAL HEART DISEASE CONSULTATION NOTE PRIMARY CARE [...] stenosis. She is now status post TAVR Zjylh-bo-Gjzob with a 23 mm Lai 3 THV 05/12/[address] Sharma. Preliminary findings: Successful right transfemoral TAVR Vqavi-hr-Bwiyp with a 23 mm Lai 3 THV. [...] ejection fraction Mild coronary artery disease by [facility] 11/09/2022 Heart failure with reduced [...] stenosis. She is now status post TAVR Bejtc-la-Taseh with a 23 mm Lai 3 THV 05/12/[address] Sharma. Janet TAVR case notable for coronary LAD protective MINNA. Status post TAVR, the patient was transferred to [facility] for pressor and inotropic support. Pressors weaned overnight 05/12. Cardiac indices by thermodilution remained >3 with continued Milrinone 0.125 mcg/kg/min prior to PAC removal. EKG todayNSR with stable PA/QRS intervals. Hemoglobin slowly down-trending (8.2-> 7.8-> 7.2). [...] Brody Kaplan APRN Structural Heart Team Pager [phone] Team Office Please see addendum by Dr. [...] exposure. Nephrology consultationtoday. Antelmo Sharma MD Pager [phone] * Antelmo Cardenas RN - 05/14/2023 5:18 AM EDT Pt AOx4, complaining of mild/moderate generalized pain (states her Meloxicam is effective at home) currently refusing prn oxycodone. NAEON, hemodynamically stable on Milrinone, Maps >65, ST in hdg144's down to NSR with frequent multifocal PVC's. [...] original note were not included. [facility] [place] [address] [phone] STRUCTURAL HEART DISEASE PROGRESS NOTE PRIMARY CARE [...] stenosis. She is now status post TAVR Abnrn-kz-Jkcrp with a 23 mm Lai 3 THV 05/12/[address] Sharma. Preliminary findings: Successful right transfemoral TAVR Jwbhe-qf-Tjquk with a 23 mm Lai 3 THV. [...] or perforation. Interval Events: - Transferred to [facility] post- TAVR for pressor/inotropic support (Levo, [...] ejection fraction Mild coronary artery disease by [facility] 11/09/2022 Heart failure with reduced [...] stenosis. She is now status post TAVR Suywq-rm-Dhife with a 23 mm Lai 3 THV 05/12/[address] Sharma. Janet TAVR case notable for coronary LAD protective MINNA. Status post TAVR, the patient was transferred to [facility] for pressor and inotropic support. Pressors weaned overnight. Cardiac indices by thermodilution remain greater than 3 with continued Milrinone 0.125 mcg/kg/min. EKG today NSR with stable PA/QRS intervals. Hemoglobin 7.8 [...] Brody Kaplan APRN Structural Heart Team Pager [phone] Team Office Please see addendum by Dr. [...] DAPT moving forward. Antelmo Sharma MD Pager [phone] * KaBonita stewart PA - 05/13/2023 8:30 AM EDT Cardiac Surgery Progress Note Purnima Thacker is a 67 y.o. 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 PMH of s/p tissue AVR (2017), mixed connective tissue disease HTN, HLD, NICOLAS, diverticulosis, rosacea, essential tremor, and depression. 24h Events: From cardiac catheterization technologist for above procedure Extubated at ~1600 [...] soft b/l, no evidence of hematoma. Tubes/Lines/Drains: Clarendon, RIJ, A-line, Art, PIV Assessment/Plan: 67 y.o. [...] 0600 and on the weekends please page [phone]. * Onelia Schwartz MD - 05/12/2023 1:44 [...] ejection fraction Mild coronary artery disease by [facility] 11/09/2022 Heart failure with reduced [...] FiO2 weaned to 40%. 1105: ABG 7.34/42/73/22 6466-6510: SBT performed and passed on these settings [...] Cardiology ICU Progress Note Patient info: Name: Prunima Thacker : 1955 PCP: Magdalena Acosta MD PCP phone number: [phone] Date of Admission: 05/08/2023 ( Hospital Day [...] 0705/12/2331705/12/2310505/11/23193905/11/231446 PHART -- 7.34* 7.34* -- -- VKG3QUO -- 30* 30* -- -- PO2ART -- 72* 81* -- -- XHV0EFH -- 16.0* 15.7* -- -- LACTATEVEN 2.4* 2.7* 2.7* 4.8* 2.9* VBG (Venous Blood Gas) Recent Labs 05/12/23 0700 05/12/2331705/12/2310505/11/23193905/11/231446 LACTATEVEN 2.4* 2.7* 2.7* 4.8* 2.9* Mixed Venous Sat Recent Labs 05/12/23 0508 05/12/23 0321 05/12/23 0114 05/12/23 0030 I7ALXV3 30.7 32.7 37.3 25.1 Objective: Vitals Last [...] questions please contact the health rn care transition that requested your imaging first. Cardiac for [...] questions please contact the health rn care transition that requested your imaging first. Angiogram Abdomen [...] questions please contact the health rn care transition that requested your imaging first. Chest One [...] questions please contact the health rn care transition that requested your imaging first. Chest One [...] questions please contact the health rn care transition that requested your imaging first. Assessment & [...] and inotrope. She is planned for a nmqlj-mq-yekjo TAVR this morning, which should hopefully improve [...] of Cardiovascular Medicine [facility] Rubber Trimmerinstructor of spanish [facility] at [facility] * Noreen Deutsch RN - [...] ejection fraction Mild coronary artery disease by [facility] 11/09/2022 Heart failure with reduced [...] 05/11/2023 4:11 PM EDT Reported off to ENVIRONMENTAL SOLUTIONS ENGINEER and pt transferred over in the bed for higher level of care. * Antelmo Sharma MD - 05/11/2023 9:45 AM EDT Images from the original note were not included. [place] [id number] STRUCTURAL HEART DISEASE CONSULTATION NOTE PRIMARY CARE [...] who had been referred for possible TAVR kkwxq-dl-ulfes evaluation. Her primary symptoms are of dyspnea [...] [facility]. 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 She states that, [...] ejection fraction Mild coronary artery disease by [facility] 11/09/2022 Heart failure with reduced [...] Lactate, whole blood, send to lab ([facility]) Result Value Ref Range Lactate WB 3.1 (H) 0.5 - 2.2 mmol/L Heparin (unfractionated) Level Result Value Ref Range Heparin UFH Level 0.46 IU/mL Lactate, whole blood, send to lab ([facility]) Result Value Ref Range Lactate WB 1.8 [...] leads Confirmed by MD Harshil, Enrique Bell ([id number]) on 05/10/2023 8:11:46 AM Cardiac Cath 11/09/2022 [...] to decompensating HFrEF, she was transferred to [facility] this afternoon for further management. TAVR CT imaging support for adequate ileofemoral access. Given her acute deterioration today, will planfor RTF TAVR on 05/12/2023. Brody Kaplan APRN Structural Heart Disease Pager [phone] Please see addendum by Dr. Sharma for [...] signed and dated. Antelmo Sharma MD Pager [phone] * Harini Lance MD - 05/11/2023 6:06 AM EDT Images from the original note were not included. Cardiology Progress Note Patient info: Name: Purnima Thacker : 1955 PCP: Magdalena Acosta MD PCP phone number: [phone] Date of Admission: 05/08/2023 ( Hospital Day [...] questions please contact the health rn care transition that requested your imaging first. : 05/08 [...] 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) Mild coronary artery disease by [facility] 11/09/2022 Hyperlipidemia, unspecified NICOLAS (obstructive [...] PCP: Magdalena Acosta MD PCP phone number: [phone] Date of Admission: 05/08/2023 ( Hospital Day [...] 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) Mild coronary artery disease by [facility] 11/09/2022 Hyperlipidemia, unspecified NICOLAS (obstructive [...] PCP: Magdalena Acosta MD PCP phone number: [phone] Date of Admission: 05/08/2023 ( Hospital Day [...] Gas) No results found for: PHART, PO2ART, UMM9AET, NWB2LVJ Microbiology: Microbiology Results (Last 30 days) No [...] Diet: Daily Healthy Menu Choices/Cardiac diet ([facility]-Diet) Lines: Peripheral IV Line - Single Lumen [...] 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) Mild coronary artery disease by [facility] 11/09/2022 Hyperlipidemia, unspecified NICOLAS (obstructive [...] fraction I35.0 Mild coronary artery disease by [facility] 11/09/2022 I25.10 Heart failure with reduced ejection fraction due to heart valve disease I50.20, I38 Cardiogenic shock R57.0 S/P TAVR (transcatheter aortic valve replacement) Z95.2 Past Medical History: Diagnosis Date Anemia Past Surgical History: Procedure Laterality Date PRG CATH PLAL LEFT HEART CATH & ARTS W/INJ & ANGIO IMG S&I N/A 11/09/2022 CORONARY ANGIOGRAPHY; W [facility],POSSIBLE PCI (WRVU 5.6) performed by Mario Alberto Escobedo MD at [facility] CATH LABS PRO AORTOPLAS FOR SUPRAVALV STEN N/A 09/21/2016 @AORTOPLASTY FOR SUPRAVALVULAR STENOSIS (WRVU 29.33) performed by Alirio Hudson MD at [facility] MAIN OR PRO REPLACEMENT PROSTHETIC AORTIC VALVE OPEN W CARDIOPULMONARY BYPASS HOMOGRF/STENT N/A 09/21/2016 @REPLACE AORTIC VALVE, OPEN, W\CPB, W\PROSTHETIC VALVE (WRVU 41.32) performed by Alirio Hudson MD at [facility] MAIN OR Social History and Habits: [...] fraction I35.0 Mild coronary artery disease by [facility] 11/09/2022 I25.10 Heart failure with reduced ejection fraction due to heart valve disease I50.20, I38 Cardiogenic shock R57.0 S/P TAVR (transcatheter aortic valve replacement) Z95.2 Past Medical History: Diagnosis Date Anemia Past Surgical History: Procedure Laterality Date PRG CATH [facility] LEFT HEART CATH & ARTS W/INJ & ANGIO IMG S&I N/A 11/09/2022 CORONARY ANGIOGRAPHY; W [facility],POSSIBLE PCI (WRVU 5.6) performed by Mario Alberto Escobedo MD at [facility] CATH LABS PRO AORTOPLAS FOR SUPRAVALV STEN N/A 09/21/2016 @AORTOPLASTY FOR SUPRAVALVULAR STENOSIS (WRVU 29.33) performed by Alirio Hudson MD at [facility] MAIN OR PRO REPLACEMENT PROSTHETIC AORTIC VALVE OPEN W CARDIOPULMONARY BYPASS HOMOGRF/STENT N/A 09/21/2016 @REPLACE AORTIC VALVE, OPEN, W\CPB, W\PROSTHETIC VALVE (WRVU 41.32) performed by Alirio Hudson MD at [facility] MAIN OR Social History and Habits: [...] days, which prompted her to present to [facility]. She also endorses some intermittent retrosternal chest pain with exertion.She endorses some dizziness with exertion, but has not gotten faint or passed out. At [facility] she was noted to be afebrile, blood pressure 105/64, HR 120s, satting 95% on 2L NC. Labs from [facility] are below, of note she had elevated [...] 89/59, which prompted the transfer to us. [facility] labs: CBC - Hgb 10.5 CMP - Cr 1.1 BNP 84111 HsTrop 1358 Lactate 1.6 D-dimer 1183 Interval [...] Klaudia Reid MD Internal Medicine PGY-1 Pager [phone], M1-S1 Service Associated attestation - Juan Luis Gonzalez MD - 05/08/2023 10:00 PM EDT Cardiology Attending Addendum Active Hospital Problems Diagnosis Symptomatic severe aortic stenosis with low ejection fraction Heart failure with reduced ejection fraction due to heart valve disease Mild coronary artery disease by [facility] 11/09/2022 Hyperlipidemia, unspecified History of [...] PCP: Magdalena Acosta MD PCP phone number: [phone] Date of Admission: 05/08/2023 ( Hospital Day 0 days ) Attending:Enrique Chua MD ID: Purnima Thacker is a 67 y.o. female w/ PMH of s/p bioprosthetic AVR in 2016 with recent concern for severe restenosis, HTN, HLD, mixed connective tissue disease, who presents in transfer from [facility] with worsening BONILLA and weight gain concerning [...] four days, which promptedher to present to [facility]. She also endorses some intermittent retrosternal chest pain with exertion. She endorses some dizziness with exertion, but has not gotten faint or passed out. At [facility] she was noted to be afebrile, blood pressure 105/64, HR 120s, satting 95% on 2L NC. Labs from [facility] are below, of note she had elevated [...] 89/59, which prompted the transfer to us. [facility] labs: CBC - Hgb 10.5 CMP - Cr 1.1 BNP 42368 HsTrop 1358 Lactate 1.6 D-dimer 1183 Vasoactive [...] tissue disease, who presents in transfer [facility] BONILLA and weight gain concerning for [...] Diet: Daily Healthy Menu Choices/Cardiac diet ([facility]-Diet) DVT Prophylaxis: heparin gtt GI Prophylaxis: none [...] aspirin, statin. -Continue heparin for now pending aPula trend. -If remains HD stable, can transfer [...] to the planned procedure. Hand Hygiene: The eye dropper assembler did perform hand hygiene prior to [...] Successful arterial line placement. Crispin Timmons MD Event Specialist Food Demonstrator Associated attestation - Onelia Schwartz MD - [...] (flow was non-pulsatile) and appearance of blood. Clarendon-Marily catheter was placed and locked at 55 [...] information for follow-up [facility], [place] [address] [place] [address] Cardiac Rehab, [address] [place] [address] [facility], [place] [address] [place] [address] Transportation: family or friend will provide *Brother [...] Type: *No Product type* / Secondary Insurance: [employer] [place] Prescription Coverage: Yes This plan was formulated with input from patient, family (please identify family/friend involved ifapplicable) and team. All are in agreement with plan. Aliza Martino MSN-Ed, RN ACM icebox worker Office of Care Management Pager #[phone] * Plan of Care - Favian Mckeon [...] Chaudhary RN - 05/21/2023 4:46 PM EDTSummary: [facility] referral OFFICE OF CARE MANAGEMENT [...] our affiliations within the [facility] and educate about their right to choose where referrals are sent. provide a list of Home Health Agencies / Durable Medical Equipment vendors which serve their preferred geographic area. They have requested referrals to: [facility] [address] [place] [address] Ortho Care Located @ [place], [place] Note routed to a Inspector And Adjuster [place] who will communicate referrals to facilities and provide any required information. Transportation: family or friend will provide *Brother Raymond on Tuesday 05/22 at 1000 Barriers to discharge: Does not have home 22/02 assist available until tomorrow Tuesday 05/22 Plan going forward: Discharge home into the 22/02 home care of brother [facility] and [facility] PT/OT services on Tuesday 05/22 [...] Attending: All Staff: Staff Role Juanita Almaguer Mink Farmer Laure Ricks PA Physician Mess Attendant Crew Magdalena Rodriguez wood floor refinisher Nurse Consuelo Espinoza wood floor refinisher Nurse Post-operative diagnosis/Indication: Right pleural effusion Name [...] [place] Last Physical Therapy Recommendation: fpc facility, [...] discuss discharge planning needs. provide the [facility], Office of Care Management letter from the Construction Equipment Technician pertaining to rehab referrals. provide a letter describing our affiliations within the [facility] and educate about their right to choose where referrals are sent. provide the CMS Star Quality Rating handout. review the different levels of rehab including SNF, swing, and acute. provide a list of facilities within their preferred geographic area. request that they provide at least three choices for referral. They have requested referrals to: [facility] [address] [place] [address] [facility] ([facility]) [address] [place] [address] (Accepts pts only after exhausting all other local SNF options) [facility] (Swing) ([facility]) [address] [place] [address] PHONE: [phone] FAX: [phone] [facility] (Swing) [facility]) [address] [place] [address] PHONE: [phone] FAX: [phone] Note routed to a Inspector And Adjuster [place] who will communicate referrals to facilities and [...] RN - 05/17/2023 10:[address] [facility] CARDIAC REHABILITATION Purnima Thacker was seen today regarding participation in the outpatient Phase 2 Cardiac Rehabilitation at [facility]. The patient agrees to a referral to [...] from the original note were not included. [facility] NEPHROLOGY/HYPERTENSION CONSULT NOTE PATIENT: Purnima Thacker [...] in her course. She ultimately underwent a ecqex-yl-henko procedure on and tolerated it well (see operative details). [facility] and sedated on some pressors [...] 1423 05/12/23 1105 PHART 7.39 7.37 7.34* [id number] 33* 36 42 PO2ART 101 102 73* CTL1FQT 19.5* 20.4 22.1 LACTATEVEN 1.5 1.8 2.8* [id number] 40 40 40 PFRATIOART2 252 255 182 VBG (Venous Blood Gas) Recent Labs 05/12/23 1557 05/12/23 1423 05/12/23 1105 LACTATEVEN 1.5 1.8 2.8* Mixed Venous Sat Recent Labs 05/12/23 1425 05/12/23 0508 05/12/23 0321 [id number] 59.9 30.7 32.7 LFT's: Recent Labs 05/14/23 0110 05/13/23 0115 05/12/23 0600 BILITOT 0.4 0.5 0.9 BILIDIR -- 0.3 -- ALBUMIN 3.6 3.0* 3.5 ALKPHOS 86 85 100 ALT 437* 903* 1,174* AST 319* 792* 1,435* No results found for: UPROTCREAT No results found for: TPROTEINPEP, ALBELECT No results found for: MICROALBUR, [id number] No results found for: HA1C Lab Results Component Value Date CALCIUM 8.5 05/14/2023 PHOS 4.7 (H) 05/08/2023 No results found for: 25OHVITD MICROBIOLOGY: ProcedureComponentValueUnitsDate/TimeUrine culture [[id number]]Collected: 05/11/231921Lab Status: Final resultSpecimen: Clean Catch UrineUpdated: [...] consulted for assessment if this patient needs ANIMAL SERVICES OFFICER. Atthis time, we can likely hold off on ANIMAL SERVICES OFFICER. Her volume status appears sufficient and her metabolic kanwal angements with mild acidosis is not too profound. Patient does not have significant uremic symptoms. We can hold off for today, but the patient is a high risk candidate for needing ANIMAL SERVICES OFFICER in future daysespecially if her Cr curve trends the direction it is for the next several days. S/p Lengs-eb-Wwygi TF TAVR: Management per cardiology. On milrinone gtt. PLAN: - Please obtain following diagnostics: renal US, urinalysis, urine prot/Cr ratio, urine albumin/Cr ratio, CK, uric acid, serum osmol, daily VBGs - No acute indications for ANIMAL SERVICES OFFICER/dialysis. We will keep close eye on Cr trend, volume status, and metabolics to ensure patient still does not need ANIMAL SERVICES OFFICER as she ensues intrinsic renal recovery - [...] M.H.Katherine., M.A. PGY-V Nephrology-Hypertension Fellow Page # [phone] [facility] [address] 2nd floor, Retail Service Technician [address] [place] [address] * Care Management - Mario Alberto Olmos [...] for a TAVR at 730. Returned to [facility] at 0945. Was intubated in the cardiac catheterization technologist due to agitation. Maintained bedrest for [...] Operative Note Patient Name: Purnima Thacker : [id number] MR#: [id number] Case Date: 05/12/2023 Surgeon: Surgeon(s) and Role: [...] procedure Note: Patient Name: Purnima Thacker : [id number] MR#: [id number] Case Date: 05/12/2023 Operators Surgeon: Surgeon(s) and [...] main with 4.0 x 30 mm Resolute [facility] Eluting Stent Perclose x1 + Angio-seal 8 Fr x1, RFA Manual pressure, LFA Manual pressure, LFV Endotracheal intubation (performed by cardiac anesthesia) Preliminary findings: Successful right transfemoral TAVR Xluox-wd-Ywgkw with a 23 mm Lai 3 THV. [...] MD, M.Sc. Structural Heart Disease Fellow Pager :[phone] Antelmo Sharma MD Pager [phone] * Op Note - Alirio Hudson MD - 05/12/2023 7:37 AM EDT Preop Diagnosis: Severe aortic stenosis, symptomatic. Postop Diagnosis: Same. Procedure: Transfemoral TAVR procedure with 23mm valve. Surgeon: Alirio Hudson M.D. Allergy And Immunology Specialist: Danny CULP Procedure: The patient was taken to the cardiac catheterization technologist. The patient had monitored anesthesia care. 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 [facility] [place] [address] STRUCTURAL HEART DISEASE CONSULTATION NOTE PRIMARY CARE [...] who had been referred for possible TAVR srxwt-pk-ryqfh evaluation. Her primary symptoms are of dyspnea [...] [facility]. 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 PROBLEM LIST: Patient Active Problem List Diagnosis Symptomatic severe aortic stenosis with low ejection fraction Mild coronary artery disease by [facility] 11/09/2022 Heart failure with reduced [...] Lactate, whole blood, send to lab ([facility]) Result Value Ref Range Lactate WB 1.8 [...] leads Confirmed by MD Harshil, Enrique Bell ([id number]) on 05/10/2023 8:11:46 AM Assessment and Plan: [...] alert Dr. Hudson of her inpatient status, [place] primary cardiac surgeon. Based on recent [...] Antelmo Sharma MD Structural Heart Disease Pager [phone] * Plan of Care - Sarahi Nice RN - 05/10/2023 3:55 AM EDTSumavis: RN Note and Care Plan Sarahi Nice RN assumed care of pt at time of their arrival to room 362 from [facility]. Pt voices shortness of breath at [...] VTE (Venous Thromboembolism) Risk Flowsheets (Taken 05/09/2023 3246) VTE Prevention/Management: anticoagulant therapy Intervention: Prevent Infection [...] listening utilized Taken 05/08/20231999 by Alivia Kauffman, flask carrier/Support System Care: self-care encouraged support provided Problem: [...] Transfer from another hospital Location: admitted from [facility] Reason for Hospitalization: Critical aortic stenosis, causing [...] care in [place] must abide by [place] law. The hierarchy [...] (i) The agent with financial power of chemical engraver or a conservator appointed in accordance with [...] Home Address confirmed as: [address] [address] Social & Family Supports: All names listed [...] Prescription Coverage: Yes Preferred Pharmacy: updated to [facility] Status: Patient is a : No Primary Care Provider confirmed: Magdalena Acosta MD [phone] Patient/Caregiver Goals of Treatment: Potential Needs for [...] transition of care planning. Alie Bradshaw RN, Pager-[phone] * Plan of Care - Emily Lucero RN - 05/08/2023 2:54 PM EDT OUTCOME EVALUATION NOTE: OUTCOME SUMMARY: Pt arrived from [facility]. A&O, no c/o pain or SOB. Heparin [...] PM EDT Appointment [place] [phone] 11/02/2024 1:00 PM EDT Office [place] [phone] Magdalena Peralta MD [address] [place] [address] 03/01/2025 4:15 PM EDT Office Visit Dermatology at [place] [address] [place] [address] Marek Bonilla MD [address], [place] [address] Scheduled Referrals Name Type Priority Associated Diagnoses [...] Heart Cath W/Inj L Ventriculography, Img S&I ([id number]) 05/12/2023 7:37 AM EDT Aortic valve stenosis, [...] EST Narrative 07/08/2023 12:26 PM EST [address] [place] [address] ? Echocardiogram Report Name: PURNIMA THACKER ?Study Date: 07/08/2023 10:31 AMBP: 118/60 mmHg ? Patient Location: 4A : 1955 ? Height: 155 cm ? Account: [id number] Age: 67 yrs ? Weight: 74 kg [...] no significant change (post-procedure). Procedure Limited - 34158. Doppler - 38363. Color Doppler - 82482. Satisfactory quality. This study is limited because [...] Note Lee Kincaid MD - 07/08/2023 [address] [place] [address] Echocardiogram Report Name: PURNIMA THACKER Study Date: 0:31 AMBP: 118/60 mmHg Patient Location: : 1955 Height: 155 cm Account: [id number] Age: 67 yrs Weight: 74 kg Gender: [...] is nosignificant change (post-procedure). Procedure Limited - 89410. Doppler - 79700. Color Doppler - 64225. Satisfactoryquality. This study is limited because of [...] LABORATORY Creatinine 0.81 0.70 - 1.20 mg/dL [facility] Sodium 142 135 - [...] Carbon Dioxide 26 22 - 31 mmol/L [facility] Anion Gap 12 5 [...] HEALTH CARE CENTER Co de Phone Number [facility] [place] [address] * (ABNORMAL) Basic Metabolic Panel (non-fasting) (05/22/2023 3:57 AM EDT) Pathologist [facility] Glucose 88 65 - 199 mg/dL ST. [...] Dioxide 23 22 - 31 mmol/L [facility] Anion Gap 11 5 - 15 [...] ES [facility] [place] [address] * (ABNORMAL) Basic Metabolic Panel (non-fasting) (05/21/2023 5:06 AM EDT) Pathologist [facility] Glucose 87 65 - 199 mg/dL [facility] Comment:Diabetes: >=200 mg/d L plus symptoms Blood Urea Nitrogen 25(H) 8 - 18 mg/dL [facility] Creatinine 0.84 0.70 - 1.20 mg/dL [facility] Sodium 136 135 - [...] Narrative Resulting Agency Comment Spec In Lab [facility] BIT TRIPOLER CHEMISTRY ORDERABL ES Performing Organization Address City/[facility]/ZIP Co de Phone Number [facility] [place] [address] * Lavender Tube HOLD (05/20/2023 2:52 AM EDT) Lavender Hold Sample in lab. [facility] Blood Venous Draw / Unknown 05/20/2023 2:52 AM EDT 05/20/2023 3:04 AM EDT [facility] BIT TRIPOLER HEMATOLOGY ORDERAB LES [facility] [place] [address] * (ABNORMAL) Basic Metabolic Panel (non-fasting) (05/20/2023 [...] Agency Comment Spec In Lab Mara Serrano BIT TRIPOLER CHEMISTRY ORDERABL ES [facility] [place] [address] * (ABNORMAL) Potassium (05/20/2023 2:52 AM EDT) [...] Agency Comment Spec In Lab Mara Serrano BIT TRIPOLER CHEMISTRY ORDERABL ES [facility] [place] [address] * XR Chest PA & Lateral (Generic) [...] questions please contact the health rn care transition that requested your imaging first. ? Narrative [...] have questions please contactthe health rn care transition that requested your imaging first. Alirio Hudson MD IMG DX ORDERABLES * (ABNORMAL) Basic Metabolic Panel (non-fasting) (05/19/2023 5:49 AM EDT) Glucose 93 65 - 199 mg/dL [facility] Comment:Diabetes: >=200 mg/d L plus symptoms Blood Urea Nitrogen 45(H) 8 - 18 mg/dL [facility] Creatinine 1.02 0.70 - 1.20 mg/dL [facility] Sodium 138 135 - [...] Lab Mara Serrano ANURAG CHEMISTRY ORDERABL ES [facility] [address] * IR Chest Tube Placement Right (05/18/2023 [...] [facility] Comment:result rechecked-[facility] Creatinine 1.64(H) 0.70 - 1.20 mg/dL [facility] Comment:result rechecked-[facility] Sodium 137 135 [...] Rate 34(L) >=60 mL/min/1. 73 m?? [facility] [...] Agency Comment Spec In Lab Mara Serrano BIT TRIPOLER CHEMISTRY ORDERABL ES [facility] [place] [address] * XR Chest PA & Lateral (Generic) [...] questions please contact the health rn care transition that requested your imaging first. ? Narrative [...] have questions please contactthe health rn care transition that requested your imaging first. Alirio Hudson [...] CHEMISTRY ORDERABLE S Performing Organization Address [facility] Co de Phone Number [facility] [place] [address] * Potassium (05/16/2023 11:15 PM EDT) Potassium [...] CHEMISTRY ORDERABLE S Performing Organization Address [facility] Co de Phone Number [facility] [place] [address] * Magnesium (05/16/2023 5:22 PM EDT) Magnesium 0.96 0.69 - 1.07 mmol/L [facility] Blood 05/16/2023 5:22 PM EDT 05/16/2023 5:27 PM EDT Narrative Resulting Agency Comment Spec In Lab Alirio Hudson MD CHEMISTRY ORDERABLE S Performing Organization Address [facility] Co de Phone Number [facility] [place] [address] * (ABNORMAL) Basic Metabolic Panel (non-fasting) (05/16/2023 5:22 PM EDT) Glucose 106 65 - 199 mg/dL [facility] Comment:Diabetes: >=200 mg/d L plus symptoms Blood Urea Nitrogen 103(H) 8 - 18 mg/dL [facility] Creatinine 3.91(H) 0.70 - 1.20 mg/dL [...] S [facility] [place] [address] * (ABNORMAL) Potassium (05/16/2023 11:43 AM EDT) [...] CHEMISTRY ORDERABLE S Performing Organization Address [facility]/ZIP Co de Phone Number [facility] [place] [address] * (ABNORMAL) Ferritin (05/16/2023 4:41 AM EDT) Ferritin 1,813(H) 30 - 400 ng/mL [facility] Comment: Pediatric reference ranges not verified at [facility], interpret with caution. Reference ranges for females greater than 50 years of age approach values for men, i.e., 30-400 ng/mL. Blood 05/16/2023 4:41 AM EDT 05/16/2023 4:54 AM EDT Narrative Resulting Agency Comment Spec In Lab Kristopher Ayoub MD CHEMISTRY ORDERABLES Performing Organization Address [facility] Co de Phone Number [facility] [place] [address] * (ABNORMAL) PTH (05/16/2023 4:41 AM EDT) Pathologist [facility] [place] Parathyroid Hormone 120(H) 15 - 65 pg/mL [facility] Blood 05/16/2023 4:41 AM EDT 05/16/2023 4:54 AM EDT Narrative Resulting Agency Comment Spec In Lab Kristopher Ayoub MD CHEMISTRY ORDERABLES Performing Organization Address [facility] Co de Phone Number [facility] [place] [address] * Vitamin D, 25-Hydroxy (05/16/2023 4:41 AM EDT) Vitamin D Total 25 OH 33 21 - 100 ng/mL [facility] Vit D Interp Sufficient [facility] Blood 05/16/2023 4:41 AM EDT 05/16/2023 4:54 AM EDT Narrative Resulting Agency Comment Spec In Lab Kristopher Ayoub MD CHEMISTRY ORDERABLES [facility] [place] [address] * (ABNORMAL) Blood Gas Venous ([facility]) (05/16/2023 [...] CHILDREN LABORATORY Oxyhemoglobin, Venous 92.8 % [facility] Carboxyhemoglob in, Venous 0.1 % [facility] Comment: Nonsmokers: 0.5-1.5% COHB Smokers: Variable, but usually less than 10% Toxic: 20-30% COHB Lethal: Greater than 60% COHB Methemoglobin, Venous 0.3 <=1.5 % [facility] Na Whole Blood 130(L) 135 - 145 mmol/L [facility] [...] Blood 95(L) 98 - 107 mmol/L [facility] Gluc Whole Bld 82 65 - 199 mg/dL [facility] Comment:Diabetes: >=200 mg/d L plus symptoms Lactate WB 1.1 0.5 - 2.2 mmol/L [facility] Blood Gas Source Venous [facility] Blood Venous Draw / Unknown 05/16/2023 4:22 AM EDT 05/16/2023 4:31 AM EDT Narrative Resulting Agency Comment Spec In Lab Bonita TOBAR [place] [address] * (ABNORMAL) Differential, Automated (05/16/2023 4:20 AM EDT) Neutrophil % 84.1 % [facility] Neutrophil Absolute 6.22(H) 1.70 - 6.10 x10(3)/mc L [facility] Lymph % 5.8 % [facility] Lymphocytes Abs 0.4(L) 0.9 - 3.2 x10(3)/mc L [facility] Monocyte % 8.8 % [facility] Monocyte Abs 0.6 0.3 - 0.9 x10(3)/mc L [facility] Eos % 0.4 % [facility] Eosinophils Abs 0.0 0.0 - 0.4 x10(3)/mc L [facility] Basophil % 0.0 % [facility] Baso Absolute 0.0 0.0 - 0.1 [...] HEMATOLOGY ORDER JODIE Performing Organization Address City/[facility]/[place] [address] * (ABNORMAL) Hemogram (05/16/2023 4:20 AM EDT) [...] FOR CHILDREN [facility] NRBC% auto 0.7 % [facility] NRBC Absolute 0.050(H) 0.000 - 0.000 x10(3)/ L [facility] Blood 05/16/2023 4:20 AM EDT 05/16/2023 4:29 AM EDT Narrative Resulting Agency Comment Spec In Lab James Agustin MD HEMATOLOGY ORDER JODIE [facility] [place] [address] * (ABNORMAL) Basic Metabolic Panel (non-fasting) (05/16/2023 [...] S [facility] [place] [address] * (ABNORMAL) Iron and TIBC (05/16/2023 4:20 [...] ORDERABLES [facility] [place] [address] * (ABNORMAL) Basic Metabolic Panel (non-fasting) (05/15/2023 [...] CHEMISTRY ORDERABLE S Performing Organization Address City/[facility]/ZIP Co de Phone Number [facility] [place] [address] * (ABNORMAL) Hemogram (05/15/2023 12:50 AM EDT) White Blood Cell 9.1 4.0 - 9.5 x10(3)/mc L [facility] Red Blood Cell 2.19(L) 4.00 - 5.21 x10(6)/mc L [facility] Hemoglobin 7.2(L) 11.7 - 15.5 g/dL [facility] Hematocrit 20.6(L) 35.7 - 45.8 % [facility] Mean Cell Volume 94.1 [...] Platelet Volume 10.4 7.6 - 12.9 fL [facility] NRBC% auto 2.1 % [facility] NRBC Absolute 0.190(H) 0.000 - 0.000 x10(3)/mc L [facility] Blood 05/15/2023 12:5 0 AM EDT 05/15/2023 12:52 AM EDT Narrative Resulting Agency Comment Spec In Lab Alirio Hudson MD HEMATOLOGY ORDERABL ES Performing Organization Address [facility] Co de Phone Number [facility] [place] [address] * (ABNORMAL) BLOOD GAS 2 VENOUS (05/15/2023 [...] 60% COHB Methemoglobin, Venous 0.6 <=1.5 % [facility] Na Whole Blood 136 135 - 145 mmol/L [facility] K Whole Blood 3.7 [...] Whole Blood 95(L) 98 - 107 mmol/L [facility] Gluc Whole Bld 101 65 - 199 mg/dL [facility] Comment:Diabetes: >=200 mg/d L plus symptoms Lactate WB 1.3 0.5 - 2.2 mmol/L [facility] Flow, Mike 1.0 LPM [facility] Blood Gas Source Venous [facility] Blood 05/15/2023 12:4 9 AM EDT 05/15/2023 12:49 AM EDT Alirio Hudson MD POINT OF CARE TEST ORDERABLES [facility] [address] [place] [address] * US Retroperitoneal Complete (05/14/2023 3:53 PM [...] have questions, please contact the health rn care transition that requested your imaging first. ? Hayden Robledo, Staff Physician Electronically Signed Final Report ?? 05/14/2023 04:39 pm Narrative 05/14/2023 4:39 PM EDT Renal ? (Signed Final 05/14/2023 04:39 pm) PATIENT INFO: ID #: ? [id number] ?: ??[birth year] (67 yrs)(F) Name: ? PURNMIA THACKER ?Visit Date: 05/14/2023 03:44 pm PERFORMED BY: Attending: ?Meena CUPL, Hayden Stafford Resident: ? Nell CULP, Anand August Performed By: ? Dimas Tello RDMSa Referred By: ?ALIRIO HUDSON Location: ? [place] SERVICE(S) PROVIDED: URETRO - Retroperitoneal Complete - [id number] ? [id number] INDICATIONS: EVANS COMPARISON: CT: Abdomen/Pelvis 05/11/23 RIGHT [...] 05/14/2023 04:39 pm) PATIENT INFO: ID #: [id number] : [birth year] (67 yrs)(F) Name: PURNIMA THACKER Visit Date: 05/14/2023 03:44 pm PERFORMED BY: Attending: Hayden Robledo MD Resident: Anand Camejo MD Performed By: Consuelo Tello RDMS Referred By: ALIRIO HUDSON Location: [place] SERVICE(S) PROVIDED: URETRO - Retroperitoneal Complete - [id number] INDICATIONS: EVANS COMPARISON: CT: Abdomen/Pelvis 05/11/23 RIGHT [...] have questions, please contact the health rn care transition that requested your imaging first. Hayden Robledo, [...] CHEMISTRY ORDERABLE S Performing Organization Address [facility] Co de Phone Number [facility] [place] [address] * (ABNORMAL) Uric acid (05/14/2023 3:17 PM EDT) Uric Acid 14.9(H) 2.5 - 6.5 mg/dL [facility] Blood 05/14/2023 3:17 PM EDT 05/14/2023 3:31 PM EDT Narrative Resulting Agency Comment Spec In Lab Alirio Hudson MD CHEMISTRY ORDERABLE S Performing Organization Address [facility] [place] [address] * (ABNORMAL) Osmolality (05/14/2023 3:17 PM EDT) Osmolality 311(H) 275 - 295 mOsm/kg [facility] Blood 05/14/2023 3:17 PM EDT 05/14/2023 3:31 PM EDT Narrative Resulting Agency Comment Spec In Lab Alirio Hudson MD CHEMISTRY ORDERABLE S Performing Organization Address City/[facility]/[place] [address] * (ABNORMAL) Differential, Automated (05/14/2023 1:10 AM EDT) Neutrophil % 87.2 % [facility] Neutrophil Absolute 9.74(H) 1.70 - 6.10 x10(3)/mc L [facility] Lymph % 3.9 % [facility] Lymphocytes Abs 0.4(L) 0.9 - 3.2 x10(3)/mc L [facility] Monocyte % 7.9 % [facility] Monocyte Abs 0.9 0.3 - 0.9 x10(3)/mc L [facility] Eos % 0.0 % [facility] Eosinophils Abs 0.0 0.0 - 0.4 x10(3)/mc L [facility] Basophil % 0.1 % [facility] Baso Absolute 0.0 0.0 - 0.1 [...] S [facility] [place] [address] * (ABNORMAL) Hemogram (05/14/2023 1:10 AM EDT) [...] Platelet Volume 10.4 7.6 - 12.9 fL [facility] NRBC% auto 1.5 % [facility] NRBC Absolute 0.170(H) 0.000 - 0.000 x10(3)/mc L [facility] Blood 05/14/2023 1:10 AM EDT 05/14/2023 1:24 AM EDT Narrative Resulting Agency Comment Spec In Lab Bonita TOBAR HEMATOLOGY ORDERABLE S [facility] [place] [address] * (ABNORMAL) Comprehensive metabolic panel (non-fasting) (05/14/2023 [...] CHEMISTRY ORDERABLE S Performing Organization Address [facility] Co de Phone Number [facility] [place] [address] * APTT (05/13/2023 10:15 AM EDT) Partial [...] ORDERABL ES Performing Organization Address [facility] Co de Phone Number [facility] [place] [address] * (ABNORMAL) Prothrombin Time (05/13/2023 10:15 AM EDT) Prothrombin Time 14.6(H) 9.4 - 12.5 sec [facility] International Normalization Ratio 1.3 [facility] [...] HEMATOLOGY ORDERABL ES Performing Organization Address [facility] Co de Phone Number [facility] [place] [address] * EKG 12 Lead (05/13/2023 9:22 AM EDT) Ventricular rate 92 BPM MUSE SYSTEM Atrial Rate 92 BPM MUSE SYSTEM P-R Interval 140 ms MUSE SYSTEM QRS Duration 104 ms MUSE SYSTEM Q-T Interval 384 ms MUSE SYSTEM QTC Calculated (Bezet) 474 ms MUSE SYSTEM Calculated P [place] 33 degrees MUSE SYSTEM Calculated R [place] 41 degrees MUSE SYSTEM Calculated T [place] -35 degrees MUSE SYSTEM INTERPRETATION Sinus rhythm with frequent Premature ventricular complexes Septal infarct , age undetermined ST & T wave abnormality, consider lateral ischemia Abnormal ECG When compared with ECG of 12-MAY-2023 10:10, Premature ventricular complexes are now Present I personally reviewed the tracing and edited the fellows interpretation Confirmed by fellow MD Anitha, Carissa ([id number]) on 05/13/2023 3:25:30 PM Confirmed by Maxx Best ([id number]) on 05/13/2023 8:30:56 PM MUSE SYSTEM 05/13/2023 9:22 AM EDT 05/13/2023 8:30 PM EDT Alirio Hudson MD ECG ORDERABLES MUSE SYSTEM * (ABNORMAL) Differential, Automated (05/13/2023 1:15 AM EDT) Pathologist [facility] [place] Neutrophil % 88.1 % [facility] Neutrophil Absolute 7.62(H) 1.70 - 6.10 x10(3)/mc L [facility] Lymph % 3.1 % [facility] Lymphocytes Abs 0.3(L) 0.9 - 3.2 x10(3)/mc L [facility] Monocyte % 7.9 % [facility] Monocyte Abs 0.7 0.3 - 0.9 x10(3)/mc L [facility] Eos % 0.0 % [facility] Eosinophils Abs 0.0 0.0 - 0.4 x10(3)/mc L [facility] Basophil % 0.1 % [facility] Baso Absolute 0.0 0.0 - 0.1 [...] S [facility] [place] [address] * (ABNORMAL) Hemogram (05/13/2023 1:15 AM EDT) White Blood Cell 8.6 4.0 - 9.5 x10(3)/[facility] LAB[facility] Red Blood Cell 2.37(L) 4.00 - 5.21 x10(6)/[facility] Hemoglobin 7.8(L) 11.7 - 15.5 g/dL [...] CHILDREN LABORATORY Platelet 130(L) 145 - 357 x10(3)/mc L [facility] RDW Standard Deviation 41.7 37.0 - 46.[address] [facility] RDW coefficient of variation 12.5 11.5 - 14.1 % [facility] Mean Platelet Volume 10.2 7.6 - 12.[address] [facility] NRBC% auto 0.5 % [facility] NRBC Absolute 0.040(H) 0.000 - 0.000 x10(3)/ L [facility] Blood 05/13/2023 1:15 AM EDT 05/13/2023 1:29 AM EDT Narrative Resulting Agency Comment Spec In Lab Lorri TOBAR HEMATOLOGY ORDERABLE S Performing Organization Address City/[facility]/ZIP Co de Phone Number [facility] [place] [address] * (ABNORMAL) Hepatic Function Panel (05/13/2023 1:15 AM EDT) Protein, Total 5.5(L) 6.1 - 8.0 g/dL [facility] Albumin 3.0(L) 3.2 - 5.2 g/dL [facility] Aspartate Aminotransferase 792(H) 0 - 30 unit/L [facility] Alanine Aminotransferase 903(H) 0 - 30 [...] CHEMISTRY ORDERABLE S Performing Organization Address [facility] Co de Phone Number [facility] [place] [address] * (ABNORMAL) Basic Metabolic Panel (non-fasting) (05/13/2023 1:15 AM EDT) Glucose 107 65 - 199 mg/dL [facility] Comment:Diabetes: >=200 mg/d L plus symptoms Blood Urea Nitrogen 82(H) 8 - 18 mg/dL [facility] Creatinine 3.15(H) 0.70 - 1.20 mg/dL [facility] Comment:result rechecked-OG Sodium 132(L) [...] S [facility] [place] [address] * (ABNORMAL) BLOOD GAS 2 ARTERIAL (05/12/2023 [...] Whole Blood 129(L) 135 - 145 mmol/L [facility] K Whole Blood 3.8 [...] Bld 178 65 - 199 mg/dL [facility] Comment:Diabetes: >=200 mg/d L plus symptoms. Lactate WB 1.5 0.5 - 2.2 mmol/L [facility] FIO2 Art 40 % [facility] PF Ratio Art 252 [facility] Blood 05/12/2023 3:57 PM EDT 05/12/2023 3:57 PM EDT Alirio Hudson MD POINT OF CARE TEST ORDERABLES Performing Organization Address City/State/[facility] Co de Phone Number [facility] [place] [address] * (ABNORMAL) Coox2 (05/12/2023 2:25 PM EDT) pO2, Coox 37 mmHg [facility] Hgb Blood Gas 9.5(L) 11.7 - 15.5 g/dL [facility] Oxyhemoglobin, Coox 59.9 % [facility] Carboxyhemoglo bin, Coox 0.3 % [facility] Comment: Nonsmokers: 0.5-1.5% COHB Smokers: Variable, but usually less than 10% Toxic: 20-30% COHB Lethal: Greater than 60% COHB Methemoglobin, Coox 0.7 <=1.5 % [facility] Source Coox Mixed Venous [facility] Blood 05/12/2023 2:25 PM EDT 05/12/2023 2:25 PM EDT Alirio Hudson MD POINT OF CARE TEST ORDERABLES [facility] [place] [address] * (ABNORMAL) BLOOD GAS 2 ARTERIAL (05/12/2023 [...] 60% COHB Methemoglobin, Arterial 0.7 <=1.5 % [facility] Na Whole Blood 129(L) [...] Whole Blood 95(L) 98 - 107 mmol/L [facility] Gluc Whole Bld 168 65 - 199 mg/dL [facility] Comment:Diabetes: >=200 mg/d L plus symptoms. Lactate WB 1.8 0.5 - 2.2 mmol/L [facility] FIO2 Art 40 % [facility] PF Ratio Art 255 [facility] Blood 05/12/2023 2:23 PM EDT 05/12/2023 2:23 PM EDT Alirio Hudson MD POINT OF CARE TEST ORDERABLES [facility] [place] [address] * (ABNORMAL) Troponin (05/12/2023 2:05 PM EDT) [...] can be found in the [facility] Laboratory Test Catalog Troponin - [facility] Laboratory Test Catalog Reference: Fourth Springer Definition of Myocardial Infarction. Journal of the [employer] 2018;72:1790-4880 Blood 05/12/2023 2:05 PM EDT 05/12/2023 2:14 PM EDT Narrative Resulting Agency Comment Spec In Lab Alirio Hudson MD CHEMISTRY ORDERABLE S Performing Organization Address [facility]/ZIP Co de Phone Number [facility] [place] [address] * (ABNORMAL) Hemoglobin (05/12/2023 2:05 PM EDT) Hemoglobin 8.5(L) 11.7 - 15.5 g/dL [facility] Blood 05/12/2023 2:05 PM EDT 05/12/2023 2:14 PM EDT Narrative Resulting Agency Comment Spec In Lab Alirio Hudson MD HEMATOLOGY ORDERABL ES Performing Organization Address [facility] Co de Phone Number [facility] [place] [address] * Potassium (05/12/2023 2:05 PM EDT) Potassium [...] CHEMISTRY ORDERABLE S Performing Organization Address [facility] Co de Phone Number [facility] [place] [address] * (ABNORMAL) BLOOD GAS 2 ARTERIAL (05/12/2023 11:05 AM EDT) pH, Arterial 7.34(L) 7.35 - 7.45 [facility] PCO2, Arterial 42 35 [...] FOR CHILDREN [facility] FIO2 Art 40 % [facility] PF Ratio Art 182 [facility] Blood 05/12/2023 11:0 5 AM EDT 05/12/2023 11:05 AM EDT Alirio Hudson MD POINT OF CARE TEST ORDERABLES [facility] [place] [address] * (ABNORMAL) BLOOD GAS 2 ARTERIAL (05/12/2023 10:14 AM EDT) pH, Arterial 7.18(Criti gabrielle) 7.35 - 7.45 [facility] Comment:Noted by electrical/instrument technician. PCO2, Arterial 45 35 - [address] [facility] PO2, Arterial 186(H) 85 - [address] [facility] Bicarbonate, Arterial 16.2(L) 20.0 - 26.0 mmol/L [facility] Base Excess, Arterial -12.2(L) -3.0 - 3.0 mmol/L [facility] Hgb Blood Gas 10.0(L) 11.7 - 15.5 g/dL [facility] Oxyhemoglobin, Arterial 97.0 94.0 - 97.0 % [facility] Carboxyhemoglob in, Arterial 0.2 % [facility] Comment: Nonsmokers: 0.5-1.5% COHB Smokers: Variable, but usually less than 10% Toxic: 20-30% COHB Lethal: Greater than 60% COHB Methemoglobin, Arterial 0.9 <=1.5 % [facility] Na Whole Blood 129(L) 135 - 145 mmol/L [facility] K Whole Blood 3.6 [...] Blood 97(L) 98 - 107 mmol/L [facility] Gluc Whole Bld 161 65 - 199 mg/dL [facility] Comment:Diabetes: >=200 mg/d L plus symptoms. Lactate WB 3.3(H) 0.5 - 2.2 mmol/L [facility] FIO2 Art 100 % [facility] PF Ratio Art 186 [facility] Blood 05/12/2023 10:1 4 AM EDT 05/12/2023 10:14 AM EDT Alirio Hudson MD POINT OF CARE TEST ORDERABLES [facility] [place] [address] * EKG 12 Lead (05/12/2023 10:10 AM EDT) Ventricular rate 116 BPM MUSE SYSTEM Atrial Rate 116 BPM MUSE SYSTEM P-R Interval 158 ms MUSE SYSTEM QRS Duration 114 ms MUSE SYSTEM Q-T Interval 348 ms MUSE SYSTEM QTC Calculated (Bezet) 483 ms MUSE SYSTEM Calculated P [place] 37 degrees MUSE SYSTEM Calculated R [place] 31 degrees MUSE SYSTEM Calculated T [place] -138 degrees MUSE SYSTEM INTERPRETATION Sinus tachycardia with intermittent aberrant ventricular conduction Possible Left atrial enlargement Incomplete left bundle block Left ventricular hypertrophy with repolarization abnormality ( Sokolow-Orozco , [place] product ) ST & T wave abnormality in Inferolateral leads Abnormal ECG When compared with ECG of 10-MAY-2023 13:16, ST & T wave abnormality is more pronounced in inferolateral leads I personally reviewed the tracing and edited the fellows interpretation Confirmed by fellow MD Anuja, Jim ([id number]) on 05/12/2023 1:04:20 PM Confirmed by MD Mono, Eleni ([id number]) on 05/12/2023 9:28:34 PM MUSE SYSTEM 05/12/2023 [...] questions please contact the health rn care transition that requested your imaging first. ? Narrative 05/12/2023 10:08 AM EDT EXAMINATION: XR CHEST ONE VIEW CLINICAL HISTORY: Post TAVR TECHNIQUE: 1 view of the chest COMPARISON: Chest radiograph from earlier today FINDINGS: Interval placement of endotracheal tube with tip terminating 2 cm above the shira. Interval placement of enteric tube projecting along the expected course of the esophagus and outside the [id number]. Interval retraction of right IJ approach pulmonary [...] expected course ofthe esophagus and outside the [id number]. Interval retraction of right IJ approach pulmonary [...] have questions please contactthe health rn care transition that requested your imaging first. Alirio Hudson [...] 1955 ? Height: 154 cm ? Account: [id number] Age: 67 yrs ? Weight: 75 kg [...] mL/m2. POST TAVR: Normal function of the [id number] prosthesis. See below for hemodynamic parameters. Slight improvement in left and right ventricular systolic function. LVEF now 20-25%. No pericardial effusion. See report for additional findings. Procedure Limited - 74041. Doppler - 25349. Color Doppler - 74432. Left Ventricle Left ventricle is of normal [...] 307:33 AMBP: 96/63 mmHg Patient Location: [address] : 1955 Height: 154 cm Account: [id number] Age: 67 yrs Weight: 75 kg Gender: [...] 28mL/m2. POST TAVR: Normal function of the oohwk-xa-jlkcs prosthesis. See belowfor hemodynamic parameters. Slight improvement in left and right ventricularsystolic function. LVEF now 20-25%. No pericardial effusion. See report for additional findings. Procedure Limited - 00399. Doppler - 67636. Color Doppler - 62819. Left Ventricle Left ventricle is of normal [...] Modality Other Narrative 05/12/2023 2:37 PM EDT ?[facility] ? Cardiac Catheterization/Intervention Report ? Patient Name: Kirstie, Purnima M. ? Procedure Date: 05/12/2023 ? A #: [id number] ? Primary Physician: Zachary, Antelmo De La Fuente ? Case #: [id number] ? File Name: [id number] ? Catheterization Order Number: [id number] ? [facility] ? [place] ? Patient Name: ? Purnima M. Kirstie ? ID#: ?[id number] ? : ?1955 ? Procedure Date: ? [...] Device Deployment ?* Temporary Pacemaker Insertion In Nail Specialist ?* Endotracheal Intubation By Non-Cath Physician [...] guide. ??A premounted 4.00 x 30 mm [place] Hopkins (MINNA) was ? deployed with a maximum [...] calculated STS risk score was 30.1%. A qnffw-mj-jogzx ?procedure was performed on the pre-existing bioprosthetic stented ?prosthesis. The priority of the gkaik-fn-gvonb procedure was Elective. ?The procedure was performed [...] Lai 3 Ultra RESILIA 23 mm THV (s/q=[id number]) transcatheter ?valve was inserted using standard technique. [...] nor was it given in the ?cardiac catheterization technologist. ?Recommended anti-platelet/anti-thrombotic regimen: ?Continue aspirin 81 mg daily for indefinitely. ?These recommendations are made at the time of the intervention. Patient ?and provider preferences or a changing clinical situation may require ?modification of this regimen. Consult [facility] Interventional Cardiology for ?questions. ? Conclusions: ?* [...] regimen. ? Comments: ?Successful right transfemoral TAVR Uiiyi-gz-Tmtbq with a 23 mm Lai 3 ?THV. [...] access site angiography, ?temporary pacemaker in cardiac catheterization technologist, intubation-non cath physician, vascular ?closure device, transthoracic echo ??and TAVR. Dr. Alirio Hudson M.D. ?performed the left heart catheterization, access site angiography, ?temporary pacemaker in cardiac catheterization technologist, vascular closure device, transthoracic ?echo , TAVR and CPR during cath. Dr. Lynda Mcgowan M.D. performed the ABG, ?anesthesia and intubation-non cath physician. ? Antelmo Sharma M.D. ? Electronically Signed by: Antelmo Sharma M.D. ? Report Finalized: 05/12/2023 ??14:31 ? Report Last Ammended: 07/01/2023 ??11:30 ? Procedure Note Antelmo Sharma MD - 07/01/2023 [facility] Cardiac Catheterization/Intervention Report Patient Name: Purnima Thacker Procedure Date: 05/12/2023 A #: [id number] Primary Physician: Antelmo Sharma Case #: [id number] File Name: [id number] Catheterization Order Number: [id number] [facility] FinalReport [place] Patient Name: Purnima Thacker ID#:[id number] :1955 Procedure Date: May 12, 2023 Case #: [id number] Room: 6 Case Physicians: Antelmo Sharma M.D. Start: 08:03 Alirio Hudson M.D. Admission:05/08/2023 Lynda Mcgowan M.D. Discharge:05/22/2023 Fellow: Rebekah Tejeda M.D. Referring Physician: Mario Alberto Chin M.D. Procedures: * Coronary Angiography * Left Heart Catheterization * Coronary Stent Insertion * Transcatheter Aortic Valve Replacement * Vascular Closure Device Deployment * Temporary Pacemaker Insertion In Nail Specialist * Endotracheal Intubation By Non-Cath Physician [...] A premounted 4.00 x 30 mm Nils Hopkins (MINNA) was deployed with a maximum inflation [...] calculated STS risk score was 30.1%. A emdrx-qt-uksuc procedure was performed on the pre-existing bioprosthetic stented prosthesis. The priority of the dwlbq-cr-hyelq procedure wasElective. The procedure was performed under Moderate sedation performed byLynda Mcgowan M.D. (see anesthesia report for additional details). Alirio Hudson M.D. participated in the case (see Cardiac Surgery reportfor additional details). The TAVR sheath was a 14 Fr Corona eSheath Introducer and theaccess site was femoral. Rapid ventricular pacing was performed. An Corona Lia 3 Ultra RESILIA 23 mm THV (s/o=[id number])transcatheter valve was inserted using standard technique. The [...] to nor was it given inthe cardiac catheterization technologist. Recommended anti-platelet/anti-thrombotic regimen: Continue aspirin 81 mg daily for indefinitely. These recommendations are made at the time of the intervention.Patient and provider preferences or a changing clinical situation mayrequire modification of this regimen. Consult [facility] Interventional Cardiologyfor questions. Conclusions: * Nonobstructive disease [...] this regimen. Comments: Successful right transfemoral TAVR Ovklv-ln-Tuaqu with a 23 mmSapien 3 THV. We [...] access site angiography, temporary pacemaker in cardiac catheterization technologist, intubation-non cath physician,vascular closure device, transthoracic echo and TAVR. Dr. Alirio Hudson M.D. performed the left heart catheterization, access site angiography, temporary pacemaker in cardiac catheterization technologist, vascular closure device,transthoracic echo , TAVR [...] [facility] Comment:Critical value OK, C C Lab. [...] Sodium, POC 129(L) 135 - 145 mmol/L [facility] POC Potassium 3.8 3.5 - 5.0 mmol/L [facility] Ionized Calcium, POC 1.12(L) 1.15 - 1.33 mmol/L [facility] POC Hematocrit 23.0(L) 34.0 - 45.0 % [facility] POC Calc Hgb 7.8(L) 11.2 - 15.7 g/dL [facility] Comment:The calculation of h emoglobin from hematocrit assumes a normal MCHC. POC Bgas Loc CC Lab [facility] Blood 05/12/2023 8:50 AM EDT 05/13/2023 12:00 PM EDT Alirio Hudson MD CHEMISTRY ORDERABLE S [facility] [place] [address] * (ABNORMAL) Point of Care Blood Gas [...] [facility] Sodium, POC 123(L) 135 - 145 mmol/L [facility] POC Potassium 4.0 3.5 - 5.0 mmol/L [facility] Ionized Calcium, POC 1.12(L) 1.15 - 1.33 mmol/L [facility] POC Hematocrit 27.0(L) 34.0 - 45.0 % [facility] POC Calc Hgb 9.2(L) 11.2 - 15.7 g/dL [facility] Comment:The calculation of h emoglobin from hematocrit assumes a normal MCHC. POC Bgas Loc CC Lab [facility] Blood 05/12/2023 8:10 AM EDT 05/13/2023 12:00 PM EDT Alirio Hudson MD CHEMISTRY ORDERABLE S Performing Organization Address City/[facility]/ZIP Co de Phone Number [facility] [place] [address] * (ABNORMAL) Lactate, whole blood, send to lab ([facility]) (05/12/2023 7:00 AM EDT) Lactate WB 2.4(H) 0.5 - 2.2 mmol/L [facility] Blood 05/12/2023 7:00 AM EDT 05/12/2023 7:09 AM EDT Narrative Resulting Agency Comment Spec In Lab Radha Hollins MD CHEMISTRY ORDERABL ES Performing Organization Address City/[facility]/ZIP Co de Phone Number [facility] [place] [address] * (ABNORMAL) Comprehensive metabolic panel (non-fasting) (05/12/2023 6:00 AM EDT) Glucose 167 65 - 199 mg/dL [facility] Comment:Diabetes: >=200 mg/d L plus symptoms Blood Urea Nitrogen 67(H) 8 - 18 mg/dL [facility] Creatinine 2.01(H) 0.70 - 1.20 mg/dL [...] ES [facility] [place] [address] * (ABNORMAL) Coox2 (05/12/2023 5:08 AM EDT) pO2, Coox 24 mmHg [facility] Hgb Blood Gas 10.4(L) 11.7 - 15.5 g/dL [facility] Oxyhemoglobin, Coox 30.7 % [facility] Carboxyhemoglo bin, Coox 0.3 % [facility] Comment: Nonsmokers: 0.5-1.5% COHB Smokers: Variable, but usually less than 10% Toxic: 20-30% COHB Lethal: Greater than 60% COHB Methemoglobin, Coox 0.8 <=1.5 % [facility] Source Coox Mixed Venous [facility] Blood 05/12/2023 5:08 AM EDT 05/12/2023 5:08 AM EDT Radha Hollins MD POINT OF CARE TEST ORDERABLES Performing Organization Address City/[facility] Co de Phone Number [facility] [place] [address] * (ABNORMAL) Coox2 (05/12/2023 3:21 AM EDT) pO2, Coox 25 mmHg [facility] Hgb Blood Gas 10.8(L) 11.7 - 15.5 g/dL [facility] Oxyhemoglobin, Coox 32.7 % [facility] Carboxyhemoglo bin, Coox 0.3 % [facility] Comment: Nonsmokers: 0.5-1.5% COHB Smokers: Variable, but usually less than 10% Toxic: 20-30% COHB Lethal: Greater than 60% COHB Methemoglobin, Coox 0.7 <=1.5 % [facility] Source Coox Mixed Venous [facility] Blood 05/12/2023 3:21 AM EDT 05/12/2023 3:21 AM EDT Radha Hollins MD POINT OF CARE TEST ORDERABLES Performing Organization Address City/State/[facility] Co de Phone Number [facility] [place] [address] * (ABNORMAL) BLOOD GAS 2 ARTERIAL (05/12/2023 3:18 AM EDT) pH, Arterial 7.34(L) 7.35 - 7.45 [facility] PCO2, Arterial 30(L) 35 - [address] [facility] PO2, Arterial 72(L) 85 - [address] [facility] Bicarbonate, Arterial 16.0(L) 20.0 - 26.0 mmol/L [facility] Base Excess, Arterial -9.8(L) -3.0 - 3.0 mmol/L [facility] [...] 60% COHB Methemoglobin, Arterial 0.7 <=1.5 % [facility] Na Whole Blood 131(L) [...] Whole Blood 100 98 - 107 mmol/L [facility] Gluc Whole Bld 160 65 - 199 mg/dL [facility] Comment:Diabetes: >=200 mg/d L plus symptoms. Lactate WB 2.7(H) 0.5 - 2.2 mmol/L [facility] Flow Art 5.0 LPM [facility] Blood 05/12/2023 3:18 AM EDT 05/12/2023 3:18 AM EDT Radha Hollins MD POINT OF CARE TEST ORDERABLES [facility] [place] [address] * (ABNORMAL) Coox2 (05/12/2023 1:14 AM EDT) pO2, Coox 28 mmHg [facility] Hgb Blood Gas 10.9(L) 11.7 - 15.5 g/dL [facility] Oxyhemoglobin, Coox 37.3 % [facility] Carboxyhemoglo bin, Coox 0.3 % [facility] Comment: Nonsmokers: 0.5-1.5% COHB Smokers: Variable, but usually less than 10% Toxic: 20-30% COHB Lethal: Greater than 60% COHB Methemoglobin, Coox 0.5 <=1.5 % [facility] Source Coox Mixed Venous [facility] Blood 05/12/2023 1:14 AM EDT 05/12/2023 1:14 AM EDT Radha Hollins MD POINT OF CARE TEST ORDERABLES Performing Organization Address City/State/[facility] Co de Phone Number [facility] [place] [address] * (ABNORMAL) BLOOD GAS 2 ARTERIAL (05/12/2023 [...] [facility] Flow Art 5.0 LPM [facility] Blood 05/12/2023 1:06 AM EDT 05/12/2023 1:06 AM EDT Radha Hollins MD POINT OF CARE TEST ORDERABLES [facility] [place] [address] * (ABNORMAL) Differential, Automated (05/12/2023 1:05 AM EDT) Neutrophil % 83.3 % [facility] Neutrophil Absolute 7.49(H) 1.70 - 6.10 x10(3)/mc L [facility] Lymph % 7.1 % [facility] Lymphocytes Abs 0.6(L) 0.9 - 3.2 x10(3)/mc L [facility] Monocyte % 8.9 % [facility] Monocyte Abs 0.8 0.3 - 0.9 x10(3)/mc L [facility] Eos % 0.0 % [facility] Eosinophils Abs 0.0 0.0 - 0.4 x10(3)/mc L [facility] Basophil % 0.1 % [facility] Baso Absolute 0.0 0.0 - 0.1 x10(3)/mc L [facility] Immature Gran % 0.60 % ST. [...] S [facility] [place] [address] * (ABNORMAL) Hemogram (05/12/2023 1:05 AM EDT) White Blood Cell 9.0 4.0 - 9.5 x10(3)/mc L [facility] Red Blood Cell 3.01(L) 4.00 - 5.21 x10(6)/mc L [facility] [...] [facility] NRBC% auto 0.0 % [facility] NRBC Absolute 0.000 0.000 - 0.000 x10(3)/mc L [facility] Blood 05/12/2023 1:05 AM EDT 05/12/2023 1:15 AM EDT Narrative Resulting Agency Comment Spec In Lab Gianni Fletcher MD HEMATOLOGY ORDERABLE S [facility] [address] [place] [address] * (ABNORMAL) Comprehensive metabolic panel (non-fasting) (05/12/2023 [...] Aspartate Aminotransferase 1,227(H) 0 - 30 unit/L [facility] Alanine Aminotransferase 1,097(H) 0 - 30 unit/L [facility] Alkaline Phosphatase 108(H) 35 [...] ES [facility] [place] [address] * XR Chest One View (05/12/2023 1:00 [...] questions please contact the health rn care transition that requested your imaging first. ? Narrative [...] have questions please contactthe health rn care transition that requested your imaging first. Radha Hollins MD IMG DX ORDERABLES * (ABNORMAL) Coox2 (05/12/2023 12:30 AM EDT) pO2, Coox 22 mmHg [facility] Hgb Blood Gas [...] COHB Methemoglobin, Coox 1.4 <=1.5 % [facility] Source Coox Mixed Venous [facility] Blood 05/12/2023 12:3 0 AM EDT 05/12/2023 12:30 AM EDT Radha Hollins MD POINT OF CARE TEST ORDERABLES [facility] [place] [address] * XR Chest One View (05/11/2023 11:45 [...] questions please contact the health rn care transition that requested your imaging first. ? Narrative [...] have questions please contactthe health rn care transition that requested your imaging first. Radha Hollins MD IMG DX ORDERABLES * (ABNORMAL) Lactate, whole blood, send to lab ([facility]) (05/11/2023 7:40 PM EDT) Lactate WB 4.8(Critic al) 0.5 - 2.2 mmol/L [facility] Comment:Called by: IMM, Read back by: Magdalena Baires, Date/Time:05/11/23 19:54. Blood 05/11/2023 7:40 PM EDT 05/11/2023 7:49 PM EDT Narrative Resulting Agency Comment Spec In Lab Radha Hollins MD CHEMISTRY ORDERABL ES Performing Organization Address City/[facility]/ZIP Co de Phone Number [facility] [place] [address] * Urine culture (05/11/2023 7:22 PM EDT) [...] - GENE RAL ORDERABLES Performing Organization Address City/[facility]/ZIP Co de Phone Number [facility] [place] [address] * (ABNORMAL) Urinalysis Microscopic Exam (05/11/2023 7:22 [...] Agency Comment Spec In Lab Brody Kaplan BIT TRIPOLER URINE ORDERABLES [facility] [place] [address] * (ABNORMAL) Urinalysis with reflex Culture (05/11/2023 [...] [facility] Specific Milligan Urine Automated >=1.030(A) 1.005 - 1.030 [facility] Color, Urine Dipstick Yellow Yellow [facility] Reflex to Culture Yes [facility] Clean Catch Urine 05/11/2023 7:22 PM EDT 05/11/2023 7:31 PM EDT Narrative Resulting Agency Comment Spec In Lab Brody Kaplan BIT TRIPOLER URINE ORDERABLES [facility] [place] [address] * (ABNORMAL) pro-Brain Natriuretic Peptide (05/11/2023 7:11 PM EDT) NT-proBNP >35,000(H) <=124 pg/mL [facility] Blood 05/11/2023 7:11 PM EDT 05/11/2023 7:26 PM EDT Narrative Resulting Agency Comment Spec In Lab Radha Hollins MD CHEMISTRY ORDERABL ES Performing Organization Address City/[facility]/ZIP Co de Phone Number [facility] [place] [address] * (ABNORMAL) Lactate, whole blood, send to lab ([facility]) (05/11/2023 2:47 PM EDT) Lactate WB 2.9(H) 0.5 - 2.2 mmol/L [facility] Blood 05/11/2023 2:47 PM EDT 05/11/2023 2:53 PM EDT Narrative Resulting Agency Comment Spec In Lab Juan Luis Gonzalez MD CHEMISTRY ORDERABLES Performing Organization Address [facility] Co de Phone Number [facility] [place] [address] * (ABNORMAL) CT Angiogram Abdomen & Pelvis [...] questions please contact the health rn care transition that requested your imaging first. ? Narrative [...] questions please contact the health rn care transition that requested your imaging first. ? Narrative [...] 610 mm2 Circumference: 88 mm Calcification: Mild Kebnaxh-hf-dyuqyhmy height: Left: 6.2 mm Right: 5.8 mm THORACIC AORTA Description: Normal course and caliber. ??Mild diffuse atherosclerotic changes. No acute aortopathy noted. Prevention Rn dimensions: Aortic root: 27.6 mm Max ascending [...] 610 mm2 Circumference: 88 mm Calcification: Mild Adjtglm-ov-tzktubkb height: Left: 6.2 mm Right: 5.8 mm THORACIC AORTA Description: Normal course and caliber. Mild diffuse atheroscleroticchanges. No acute aortopathy noted. Prevention Rn dimensions: Aortic root: 27.6 mm Max ascending [...] have questions please contactthe health rn care transition that requested your imaging first. Antelmo Sharma MD IMG CT ORDERABLES * (ABNORMAL) Lactate, whole blood, send to lab ([facility]) (05/11/2023 9:29 AM EDT) [facility] Lactate WB 3.1(H) 0.5 - 2.2 mmol/L [facility] Blood 05/11/2023 9:29 AM EDT 05/11/2023 9:38 AM EDT Narrative Resulting Agency Comment Spec In Lab Juan Luis Gonzalez MD CHEMISTRY ORDERABLES [facility] [place] [address] * (ABNORMAL) Differential, Automated (05/11/2023 4:42 AM EDT) Pathologist [facility] Neutrophil % 78.1 % [facility] Neutrophil Absolute 5.46 1.70 - 6.10 x10(3)/mc L [facility] Lymph % 10.6 % [facility] Lymphocytes Abs 0.7(L) 0.9 - 3.2 x10(3)/mc L [facility] Monocyte % 9.6 % [facility] Monocyte Abs 0.7 0.3 - 0.9 x10(3)/mc L [facility] Eos % 0.0 % [facility] Eosinophils Abs 0.0 0.0 - 0.4 x10(3)/mc L [facility] Basophil % 0.4 % [facility] [...] MD HEMATOLOGY OR DERABLES Performing Organization Address City/State/[facility] Co de Phone Number [facility] [place] [address] * (ABNORMAL) Hemogram (05/11/2023 4:42 AM EDT) [...] of variation 12.7 11.5 - 14.1 % [facility] Mean Platelet Volume 10.1 7.6 - 12.9 fL [facility] NRBC% auto 0.0 % [facility] NRBC Absolute 0.000 0.000 - 0.000 x10(3)/mc L [facility] Blood 05/11/2023 4:42 AM EDT 05/11/2023 4:49 AM EDT Narrative Resulting Agency Comment Spec In Lab Klaudia Reid MD HEMATOLOGY OR DERABLES Performing Organization Address [facility] Co de Phone Number [facility] [place] [address] * Heparin (unfractionated) Level (05/11/2023 4:42 AM EDT) UF Heparin 0.46 IU/mL [facility] Comment: Heparin (anti-Xa) levels should be [...] MD HEMATOLOGY ORDERAB LES Performing Organization Address [facility] Co de Phone Number [facility] [place] [address] * (ABNORMAL) Comprehensive metabolic panel (non-fasting) (05/11/2023 4:42 AM EDT) Glucose 143 65 - 199 mg/dL [facility] Comment:Diabetes: >=200 mg/d L plus symptoms Blood Urea Nitrogen 42(H) 8 - 18 mg/dL [facility] Creatinine 1.24(H) 0.70 - 1.20 mg/dL [facility] Sodium 134(L) 135 - 145 mmol/L [facility] Potassium 4.6 3.5 - [...] CHEMISTRY ORDERABL ES Performing Organization Address City/[facility]/ZIP Co de Phone Number [facility] [place] [address] * EKG 12 Lead (05/10/2023 1:16 PM EDT) Ventricular rate 118 BPM MUSE SYSTEM Atrial Rate 118 BPM MUSE SYSTEM P-R Interval 152 ms MUSE SYSTEM QRS Duration 104 ms MUSE SYSTEM Q-T Interval 316 ms MUSE SYSTEM QTC Calculated (Bezet) 442 ms MUSE SYSTEM Calculated P [place] 29 degrees MUSE SYSTEM Calculated R [place] 18 degrees MUSE SYSTEM Calculated T [place] -173 degrees MUSE SYSTEM INTERPRETATION Sinus tachycardia [...] Anterior leads Confirmed by MD Villareal Danette ([id number]) on 05/10/2023 8:47:46 PM MUSE SYSTEM 05/10/2023 1:16 PM EDT 05/10/2023 8:47 PM EDT Juan Luis Gonzalez MD ECG ORDERABLES Performing Organization Address City/[facility]/ZIP Co de Phone Number MUSE SYSTEM * Lactate, whole blood, send to lab ([facility]) (05/10/2023 11:52 AM EDT) Lactate WB 1.8 0.5 - 2.2 mmol/L [facility] Blood 05/10/2023 11:5 2 AM EDT 05/10/2023 12:13 PM EDT Narrative Resulting Agency Comment Spec In Lab Juan Luis Gonzalez MD CHEMISTRY ORDERABLES Performing Organization Address City/[facility]/ZIP Co de Phone Number [facility] [place] [address] * XR Chest One View (05/10/2023 11:16 [...] questions please contact the health rn care transition that requested your imaging first. ? Narrative [...] have questions please contactthe health rn care transition that requested your imaging first. Juan Luis Gonzalez MD IMG DX ORDERABLES * EKG 12 Lead (05/10/2023 7:59 AM EDT) Ventricular rate 115 BPM MUSE SYSTEM Atrial Rate 115 BPM MUSE SYSTEM P-R Interval 142 ms MUSE SYSTEM QRS Duration 102 ms MUSE SYSTEM Q-T Interval 322 ms MUSE SYSTEM QTC Calculated (Bezet) 445 ms MUSE SYSTEM Calculated P [place] 36 degrees MUSE SYSTEM Calculated R [place] 28 degrees MUSE SYSTEM Calculated T [place] -119 degrees MUSE SYSTEM INTERPRETATION Sinus tachycardia with frequent Premature ventricular complexes and Fusion complexes ST & T wave abnormality, consider lateral ischemia Abnormal ECG When compared with ECG of 08-MAY-2023 15:51, No significant change was found I personally reviewed the tracing and edited the fellows interpretation Confirmed by fellow MD Anitha, [facility] () on 05/11/2023 6:19:54 AM Confirmed by MD Tram, [place] ([id number]) on 05/11/2023 3:18:56 PM MUSE SYSTEM 05/10/2023 7:59 AM EDT 05/11/2023 3:18 PM EDT Radha Hollins MD ECG ORDERABLES MUSE SYSTEM * (ABNORMAL) Differential, Automated (05/10/2023 2:28 AM EDT) Neutrophil % 77.1 % [facility] Neutrophil Absolute 4.01 1.70 - 6.10 x10(3)/mc L [facility] Lymph % 14.0 % [facility] Lymphocytes Abs 0.7(L) 0.9 - 3.2 x10(3)/mc L [facility] Monocyte % 7.7 % [facility] Monocyte Abs 0.4 0.3 - 0.9 x10(3)/ L [facility] Eos % 0.4 % [facility] Eosinophils Abs 0.0 0.0 - 0.4 x10(3)/ L [facility] Basophil % 0.4 % [facility] Baso Absolute 0.0 0.0 - 0.1 x10(3)/mc L [facility] Immature Gran % 0.40 % ST. [...] 0.02 0.00 - 0.04 x10(3)/ L [facility] Blood 05/10/2023 2:28 AM EDT 05/10/2023 2:57 AM EDT Narrative Resulting Agency Comment Spec In Lab Klaudia Reid MD HEMATOLOGY OR DERABLES Performing Organization Address City/State/[facility] Co de Phone Number [facility] [place] [address] * (ABNORMAL) Hemogram (05/10/2023 2:28 AM EDT) White Blood Cell 5.2 4.0 - 9.5 x10(3)/mc L [facility] Red Blood Cell 3.11(L) 4.00 - 5.21 x10(6)/ L [facility] [...] Hemoglobin Concentration 33.8 31.7 - 35.0 g/dL [facility] Platelet 151 145 - 357 x10(3)/mc L [facility] RDW Standard Deviation 44.9 37.0 - 46.[address] [facility] RDW coefficient of variation 12.8 11.5 - 14.1 % [facility] Mean Platelet Volume 9.8 7.6 - 12.9 fL [facility] NRBC% auto 0.0 % [facility] ITAL [facility]ORAT[facility] NRBC Absolute 0.000 0.000 - 0.000 x10(3)/mc L [facility] Blood 05/10/2023 2:28 AM EDT 05/10/2023 2:57 AM EDT Narrative Resulting Agency Comment Spec In Lab Klaudia Reid MD HEMATOLOGY OR DERABLES Performing Organization Address City/State/[facility] Co de Phone Number [facility] [place] [address] * (ABNORMAL) Comprehensive metabolic panel (non-fasting) (05/10/2023 2:28 AM EDT) Glucose 100 65 - 199 mg/dL [facility] Comment:Diabetes: >=200 mg/d L plus symptoms Blood Urea Nitrogen 30(H) 8 - 18 mg/dL [facility] Creatinine 0.90 0.70 - 1.20 mg/dL [facility] Sodium 134(L) 135 - [...] questions. Chloride 102 98 - 107 mmol/L [facility] Carbon Dioxide 20(L) 22 - 31 mmol/L [facility] Anion Gap 12 5 - 15 mmol/L [facility] Calcium 9.3 8.5 - 10.5 mg/dL [facility] Protein, Total 6.4 6.1 - 8.0 g/dL [facility] Albumin 3.7 3.2 - 5.2 g/dL [facility] Aspartate Aminotransferase 24 0 - 30 unit/L [facility] Alanine Aminotransferase 14 0 - 30 unit/L [facility] Alkaline Phosphatase 70 35 - 105 unit/L [facility] Bilirubin, Total 0.5 0.2 - 1.3 mg/dL [facility] Est Glomerular Filtration Rate 70 >=60 mL/min/1. 73 m?? [facility] Comment: This patient's estimated [...] ES [facility] [place] [address] * Heparin (unfractionated) Level (05/10/2023 2:28 AM EDT) UF Heparin 0.37 IU/mL [facility] H[facility] ITAL [facility]ORAT[facility] Comment: Heparin (anti-Xa) [...] Lab Radha Hollins MD HEM[place]OLOG[place] [address] * (ABNORMAL) Differential, Automated (05/09/2023 4:00 AM EDT) Neutrophil % 81.7 % [facility] Neutrophil Absolute 5.26 1.70 - 6.10 x10(3)/mc L [facility] Lymph % 10.7 % [facility] Lymphocytes Abs 0.7(L) 0.9 - 3.2 x10(3)/mc L [facility] Monocyte % 6.5 % [facility] ITAL [facility] Monocyte Abs 0.4 0.3 - 0.9 x10(3)/mc L [facility] Eos % 0.5 % [facility] Eosinophils Abs 0.0 0.0 - 0.4 x10(3)/mc L [facility] Basophil % 0.3 % [facility] Baso Absolute 0.0 0.0 - 0.1 [...] HEMATOLOGY OR DERABLES Performing Organization Address City/[facility]/ZIP [place] [address] * (ABNORMAL) Hemogram (05/09/2023 4:00 AM EDT) [...] FOR CHILDREN LABORATORY NRBC% auto 0.0 % [facility] NRBC Absolute 0.000 0.000 - 0.000 x10(3)/mc L [facility] Blood 05/09/2023 4:00 AM EDT 05/09/2023 4:19 AM EDT Narrative Resulting Agency Comment Spec In Lab Klaudia Reid MD HEMATOLOGY OR DERABLES Performing Organization Address City/State/[facility] Co de Phone Number [facility] [place] [address] * Heparin (unfractionated) Level (05/09/2023 4:00 AM EDT) UF Heparin 0.47 IU/mL [facility] ITAL [facility]OR[facility] Comment: Heparin (anti-Xa) [...] [facility] [place] [address] * (ABNORMAL) Comprehensive metabolic panel (non-fasting) (05/09/2023 4:00 AM EDT) Glucose 108 65 - 199 mg/dL [facility] Comment:Diabetes: >=200 mg/d L plus symptoms Blood Urea Nitrogen 31(H) 8 - 18 mg/dL [facility] Creatinine 1.03 0.70 - 1.20 mg/dL [facility] Sodium 137 135 - [...] LABORATORY Calcium 9.3 8.5 - 10.5 mg/dL [facility] Protein, Total 6.6 6.1 - 8.0 g/dL [facility] Albumin 3.8 3.2 - 5.2 g/dL [facility] Aspartate Aminotransferase 32(H) 0 - 30 unit/L [facility] Alanine Aminotransferase 18 0 - 30 unit/L [facility] Alkaline Phosphatase 78 35 [...] CHEMISTRY ORDERABL ES Performing Organization Address City/[facility]/ZIP Co de Phone Number [facility] [place] [address] * (ABNORMAL) pro-Brain Natriuretic Peptide (05/08/2023 4:00 PM EDT) NT-proBNP 25,503(H) <=124 pg/mL [facility] Blood Venous Draw / Unknown 05/08/2023 4:00 PM EDT 05/08/2023 4:25 PM EDT Narrative Resulting Agency Comment Spec In Lab Juan Luis Gonzalez MD CHEMISTRY ORDERABLES [facility] [place] [address] * Magnesium (05/08/2023 4:00 PM EDT) Magnesium 0.82 0.69 - 1.07 mmol/L [facility] Blood 05/08/2023 4:00 PM EDT 05/08/2023 4:06 PM EDT Narrative Resulting Agency Comment Spec In Lab Enrique Chua MD CHEMISTRY ORDERABLES Performing Organization Address [facility] Co de Phone Number [facility] [place] [address] * Potassium (05/08/2023 4:00 PM EDT) Potassium 3.9 3.5 - 5.0 mmol/L [facility] Comment: Please note: ??Patients [...] MD CHEMISTRY ORDERABL ES Performing Organization Address [facility] de Phone Number [facility] [place] [address] * Heparin (unfractionated) Level (05/08/2023 4:00 PM EDT) UF Heparin 0.43 IU/mL [facility] H[facility]P ITAL [facility]OR[facility] Comment: Heparin (anti-Xa) [...] MD HEMATOLOGY ORDERAB LES Performing Organization Address [facility] Co de Phone Number [facility] [place] [address] * EKG 12 Lead (05/08/2023 3:51 PM EDT) Ventricular rate 98 BPM MUSE SYSTEM Atrial Rate 98 BPM MUSE SYSTEM P-R Interval 150 ms MUSE SYSTEM QRS Duration 102 ms MUSE SYSTEM Q-T Interval 358 ms MUSE SYSTEM QTC Calculated (Bezet) 457 ms MUSE SYSTEM Calculated P [place] 38 degrees MUSE SYSTEM Calculated R [place] 48 degrees MUSE SYSTEM Calculated T [place] -112 degrees MUSE SYSTEM INTERPRETATION Sinus rhythm with frequent and consecutive Premature ventricular and fusion complexes Septal infarct , age undetermined ST & T wave abnormality, consider anterolateral ischemia Abnormal ECG When compared with ECG of 09-NOV-2022 11:17, T wave inversion now evident in Anterolateral leads Confirmed by MD Harhsil, Enrique Bell ([id number]) on 05/10/2023 8:11:46 AM MUSE SYSTEM 05/08/2023 3:51 PM EDT 05/10/2023 8:11 AM EDT Radha Hollins MD ECG ORDERABLES MUSE SYSTEM * (ABNORMAL) Differential, Automated (05/08/2023 11:38 AM EDT) Pathologist [facility] Neutrophil % 71.3 % [facility] Neutrophil Absolute 2.91 1.70 - 6.10 x10(3)/mc L [facility] Lymph % 19.1 % [facility] Lymphocytes Abs 0.8(L) 0.9 - 3.2 x10(3)/mc L [facility] Monocyte % 9.0 % [facility] Monocyte Abs 0.4 0.3 - 0.9 x10(3)/mc L [facility] Eos % 0.2 % [facility] Eosinophils Abs 0.0 0.0 - 0.4 x10(3)/mc L [facility] Basophil % 0.2 % [facility] Baso Absolute 0.0 0.0 - 0.1 [...] Absolute 0.01 0.00 - 0.04 x10(3)/ L [facility] Blood 05/08/2023 11:3 8 AM EDT 05/08/2023 11:44 AM EDT Narrative Resulting Agency Comment Spec In Lab Lincoln Sal MD HEMATOLOGY ORDERA BLES [facility] [place] [address] * (ABNORMAL) Hemogram (05/08/2023 11:38 AM EDT) White Blood Cell 4.1 4.0 - 9.5 x10(3)/[facility] LABORATORY Red Blood Cell 3.05(L) 4.00 - 5.21 x10(6)/[facility] LABORATORY Hemoglobin 10.2(L) 11.7 - 15.5 g/dL [...] CHILDREN LABORATORY Platelet 136(L) 145 - 357 x10(3)/[facility] LABORATORY RDW Standard Deviation 44.3 37.0 - 46.[address] [facility] RDW coefficient of variation 12.6 11.5 - 14.1 % [facility] Mean Platelet Volume 9.4 7.6 - 12.[address] [facility] NRBC% auto 0.0 % [facility] ITAL LABORATORY NRBC Absolute 0.000 0.000 - 0.000 x10(3)/ L [facility] Blood 05/08/2023 11:3 8 AM EDT 05/08/2023 11:44 AM EDT Narrative Resulting Agency Comment Spec In Lab Lincoln Sal MD HEMATOLOGY ORDERA BLES Performing Organization Address [facility] Co de Phone Number [facility] [place] [address] * TSH (05/08/2023 11:38 AM EDT) Thyroid Stimulating Hormone 1.27 0.27 - 4.20 mcIU/mL [facility] Comment: Reference Interval (mcIU/mL): Females: ??First Trimester: 0.23-3.88 ??Second Trimester: 0.22-3.90 ??Third Trimester: 0.44-4.66 Blood 05/08/2023 11:3 8 AM EDT 05/08/2023 11:44 AM EDT Narrative Resulting Agency Comment Spec In Lab Enrique Chua MD CHEMISTRY ORDERABLES Performing Organization Address [facility] Co de Phone Number [facility] [place] [address] * (ABNORMAL) Phosphorus (05/08/2023 11:38 AM EDT) Phosphorus 4.7(H) 2.5 - 4.5 mg/dL [facility] Blood 05/08/2023 11:3 8 AM EDT 05/08/2023 11:44 AM EDT Narrative Resulting Agency Comment Spec In Lab Enrique Chua MD CHEMISTRY ORDERABLES Performing Organization Address [facility] Co de Phone Number [facility] [place] [address] * Magnesium (05/08/2023 11:38 AM EDT) Magnesium 0.76 0.69 - 1.07 mmol/L [facility] Blood 05/08/2023 11:3 8 AM EDT 05/08/2023 11:44 AM EDT Narrative Resulting Agency Comment Spec In Lab Enrique Chua MD CHEMISTRY ORDERABLES Performing Organization Address [facility] Co de Phone Number [facility] [place] [address] * (ABNORMAL) Basic Metabolic Panel (non-fasting) (05/08/2023 [...] MD CHEMISTRY ORDERABLES Performing Organization Address City/[facility] Co de Phone Number [facility] [place] [address] * ECHO COMPLETE (05/08/2023 11:02 AM EDT) EF 25 HEARTLAB SYSTEM Anatomical Region Laterality Modality Cardiac Other 05/08/2023 10:0 3 AM EDT Narrative 05/08/2023 11:51 AM EDT ? Echocardiogram Report Name: PURNIMA THACKER ?Study Date: 05/08/2023 10:03 AMBP: 92/64 mmHg ? Patient Location: [facility]^CV29^A : 1955 ? Height: 155 cm ? Account: [id number] Age: 67 yrs ? Weight: 78 kg [...] worsening stenosis. Mitral regurgitation is similar. Procedure Complete-[id number]. Satisfactory quality. There is normal sinus rhythm. [...] Study Date: 0:03 AMBP: 92/64 mmHg Patient Location:[facility]^CV29^A : 1955 Height: 155 cm Account: [id number] Age: 67 yrs Weight: 78 kg Gender: [...] suggestsworsening stenosis. Mitral regurgitation is similar. Procedure Complete-[id number]. Satisfactory quality. There is normal sinus rhythm. [...] 9:45 AM EDT) UF Heparin 0.54 IU/mL [facility] H[facility] ITAL [facility]OR[facility] Comment: Heparin (anti-Xa) [...] Lab Enrique Chua MD HEMATOLOGY ORDERABLE S 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
--- OUTSIDE RECORDS SUMMARY | 2024-07-15 12:31 | XMS_ITS | Encounter Summary ---
Author Organization [facility] [place] [address] Care Team Providers Care Water Plant Operator Name Role Phone Magdalena Acosta MD Primary Care Provider Encounter Details Date Type Department Care Team (Late st Contact Info) Description 05/08/2023 [place] [phone] Luis Felipe Ott MD [facility] [address] Social History Tobacco Use Types Packs/Day Years [...] diuresis with IV furosemide 20 x 1 ([id number] at rheumatology appointment), SpO2 85% on RA -> 95% on 2L NC, HR 120s. Examination significant for decreased breath sounds at the bases. Pertinent Diagnostic Findings: CBC - Hgb 10.5 CMP - Cr 1.1 BNP 01404 HsTrop 1358 Lactate 1.6 D-dimer 1183, CTPE [...] examined this patient. Luis Felipe Ott MD Research And Development Chemist Received a call from provider emergently at 715am. Mentating well and BP 87/53. HR 108 and diursingwell. They were about to start phenylephrine which I stressed was not a good option given concern for severe and increasing afterload. She is warm on exam, mentating and urinating and we do not need to amrit a BP if those things remain stable. Nico Segura, PGY-6 Research And Development Chemist [id number] documented in this encounter Plan of Treatment Upcoming Encounters Date Type Department Care Team (Late st Contact Info) Description 11/02/2024 12:00 PM EDT Appointment [place] [phone] 11/02/2024 1:00 PM EDT Office Visit [place] [phone] Magdalena Peralta MD [facility] [place] [address] 03/01/2025 4:15 PM EDT Office Visit Dermatology at [place] [address] [place] [phone] Marek Bonilla MD [address] [place] [address] documented as of this encounter Visit Diagnoses Not on filedocumented in this encounter Care Teams Water Plant Operator Relationship Specialty Start Date End Date Magdalena Acosta MD [address] [place] [address] PCP - General Family Medicine 02/05/23 documented as of this encounter
--- OUTSIDE RECORDS SUMMARY | 2024-07-15 12:31 | XMS_ITS | Encounter Summary ---
Author Organization [facility] [place] [address] Care Team Providers Care Maintenance Machine Repairer Name Role Phone Magdalena Acosta MD Primary Care Provider [phone] Encounter Details Date Type Department Care Team [...] 11/02/2024 12:00 PM EDT [place]ointment [place] [address] 11/02/2024 1:00 PM EDT Office [place] [address] Magdalena Peralta MD [facility] [place] [address] 03/01/2025 4:15 PM EDT Office Visit Dermatology at [address] [place] [phone] Marek Bonilla MD [address] [facility] [place] [address] documented as of this encounter Visit Diagnoses Not on filedocumented in this encounter Care Teams Maintenance Machine Repairer Relationship Specialty Start Date End Date Magdalena Acosta MD [address] [place] [address] PCP - General Family Medicine 02/05/23 documented as of this encounter
--- OUTSIDE RECORDS SUMMARY | 2024-07-15 12:31 | XMS_ITS | Encounter Summary ---
Author Organization [facility] ED[facility]yl[facility] [place] [id number] Care Team Providers Care Youth Worker Name Role Phone Magdalena Acosta MD Primary Care Provider [phone] Encounter Details Date Type Department Care Team (Late st Contact Info) Description 03/29/2023 Orders Only Cardiology at [place] [phone] Ranjan Delgado MD [facility] [place] [address] Severe aortic stenosis (Primary Dx) Social History [...] 11/02/2024 12:00 PM EDT Appointment [place] [address] 11/02/2024 1:00 PM EDT Office [place] [address] Magdalena Peralta MD [facility] [place] [address] 03/01/2025 4:15 PM EDT Office Visit Dermatology at [place] [address] [place] [address] Marek Bonilla MD [address] [place] [address] Scheduled Orders Name Type Priority Associated Diagnoses [...] disorders documented in this encounter Care Teams Youth Worker Relationship Specialty Start Date End Date Magdalena Acosta MD [address] [place] [address] PCP - General Family Medicine 02/05/23 documented as of this encounter
--- OUTSIDE RECORDS SUMMARY | 2024-07-15 12:32 | XMS_ITS | Encounter Summary ---
[place] [address] Care Team Providers Care Cement Kiln Operator Name Role Phone Magdalena Acosta MD Primary Care Provider [phone] Reason for Visit * Reason Comments Suture / Staple Removal Encounter Details Date Type Department Care Team (Late st Contact Info) Description 02/16/2023 10:00 AM EDT Office Visit Dermatology at [place] [address] [place] [phone] Marek Bonilla MD [address] [facility] DERMATOLOGY [place], [place] [phone] Visit for suture removal Social History Tobacco [...] PM EDT Appointment [place] [address] 11/02/2024 1:00 PM EDT Office [place] [address] Magdalena Peralta MD [facility] [place] [address] 03/01/2025 4:15 PM EDT Office Visit Dermatology at [place] [address] [place] [phone] Marek Bonilla MD [address] [place] [address] documented as of this encounter Visit Diagnoses Diagnosis Visit for suture removal Encounter for removal of sutures documented in this encounter Care Teams Cement Kiln Operator Relationship Specialty Start Date End Date Magdalena Acosta MD [address] [place] [address] PCP - General Family Medicine 02/05/23 documented as of this encounter
--- OUTSIDE RECORDS SUMMARY | 2024-07-15 12:32 | XMS_ITS | Encounter Summary ---
Author Organization [facility] [place] [address] Care Team Providers Care Interventional Radiologist Name Role Phone Magdalena Acosta MD Primary Care Provider [phone] Encounter Details Date Type Department Care Team [...] 11/02/2024 12:00 PM EDT [place] [address] 11/02/2024 1:00 PM EDT [place] [address] Magdalena Peralta MD [facility] [place] [address] 03/01/2025 4:15 PM EDT Office Visit Dermatology at [address] [place] [phone] Marek Bonilla MD [address] [facility] [place] [address] documented as of this encounter Visit Diagnoses Not on filedocumented in this encounter Care Teams Interventional Radiologist Relationship Specialty Start Date End Date Magdalena Acosta MD [address] [place] [address] PCP - General Family Medicine 02/05/23 documented as of this encounter
--- OUTSIDE RECORDS SUMMARY | 2024-07-15 12:32 | XMS_ITS | Encounter Summary ---
Author Organization [facility] [place] [address] Care Team Providers Care Audio/Video Technician Name Role Phone Deborah Quiroga APRN Primary Care Provider [phone] Encounter Details Date Type Department Care Team (Late st Contact Info) Description 06/08/2022 Ancillary Procedure Radiology Library at [facility] [place] [phone] Deborah Quiroga APRN [address] [place] [address] Social History Tobacco Use Types Packs/Day [...] 11/02/2024 12:00 PM EDT Appointment [place] [address] 11/02/2024 1:00 PM EDT Office [place] [address] Magdalena Peralta MD [facility] RHEUMATOLOGY DEPT [place], [place] [address] 03/01/2025 4:15 PM EDT Office Visit Dermatology at [place] [address] [place] [address] Marek Bonilla MD [address], [place] [address] documented as of this encounter Procedures Procedure Name Priority Date/Time Associated Diagnosis Comments FILM LIBRARY STORAGE ONLY DX SPINE Routine 06/08/2022 12:00 AM EST documented in this encounter Results * Film Library- Storage Only DX Spine (06/08/2022 12:00 AM EST) Narrative [facility] - 06/18/2022 10:57 AM EST This exam is auto-finalizing. It's purpose is for storage only. Deborah Quiroga APRN IMG FILM LIBRARY OR DERABLES Performing Organization Address City/State/[facility] de Phone Number [place], [place] documented in this encounter Visit Diagnoses Not on filedocumented in this encounter Care Teams Audio/Video Technician Relationship Specialty Start Date End Date Deborah Quiroga APRN PCP - General Family Medicine 03/24/16 02/04/23 documented as of this encounter
--- OUTSIDE RECORDS SUMMARY | 2024-07-15 12:32 | XMS_ITS | Encounter Summary ---
Author Organization [facility] Address [facility] Erika [place] [address] Care Team Providers Care Vice President Global Digital Marketing Name Role Phone Deborah Quiroga ANURAG Primary Care Provider [phone] Encounter Details Date Type Department Care Team (Late st Contact Info) Description 01/13/2021 Refill Dermatology at [address] [place] [address] Taylor Malone, DESIGN PROJECT MANAGER Social History Tobacco Use Types Packs/Day [...] PM EDT Appoint[place] [address] 11/02/2024 1:00 PM EDT Office [place] [address] Magdalena Peralta MD [facility] [place] [address] 03/01/2025 4:15 PM EDT Office Visit Dermatology at [address] [place] [address] Marek Bonilla MD [address], [place] [address] documented as of this encounter Visit Diagnoses Not on filedocumented in this encounter Care Teams Vice President Global Digital Marketing Relationship Specialty Start Date End Date Deborah Quiroga APRN PCP - General Family Medicine 03/24/16 02/04/23 documented as of this encounter
--- OUTSIDE RECORDS SUMMARY | 2024-07-15 12:32 | XMS_ITS | Encounter Summary ---
[place] [address] Care Team Providers Care Computer Support Specialist Name Role Phone Ashley Quirogazac Shields APRN Primary Care Provider [phone] Reason for Visit * Reason Comments Annual Exam Encounter Details Date Type Department Care Team (Late st Contact Info) Description 01/09/2022 3:15 PM EDT Office Visit Dermatology at [address] [phone] Marek Bonilla MD [address] [facility], [address] A DERMATOLOGY [place], [place] [phone] Rosacea Social History Tobacco Use Types Packs/Day [...] and ocular 2. Previously told by commercial helicopter pilot that she had corneal tears from her [...] refills. We will call this into her [facility] pharmacy in [place] 3. Continue metronidazole 0.75% gel applying every [...] PM EDT App[place] [address] 11/02/2024 1:00 PM EDT Office [place] [address] Magdalena Peralta MD [facility] [place] [address] 03/01/2025 4:15 PM EDT Office Visit Dermatology at [place] [address] [facility] [place] [address] Marek Bonilla MD [address] [facility], [address] A DERMATOLOGY [place], [place] [address] documented as of this encounter Visit Diagnoses Diagnosis Rosacea documented in this encounter Care Teams Computer Support Specialist Relationship Specialty Start Date End Date Deborah Quiroga APRN PCP - General Family Medicine 03/24/16 02/04/23 documented as of this encounter
--- OUTSIDE RECORDS SUMMARY | 2024-07-15 12:32 | XMS_ITS | Encounter Summary ---
Author Organization [facility] [place] [address] Care Team Providers Care Solar Lab Technician Name Role Phone Magdalena Acosta MD Primary Care Provider [phone] Encounter Details Date Type Department Care Team (Late st Contact Info) Description 02/17/2023 2:00 PM EDT Office [place] [phone] Alirio Esparza MD Aortic valve stenosis, etiology [...] 11/02/2024 12:00 PM EDT Appoint[place] [address] 11/02/2024 1:00 PM EDT Office [place] [address] [facility] [place] [address] 03/01/2025 4:15 PM EDT Office Visit Dermatology at [place] [address] [place] [address] Marek Bonilla MD [address] [facility] [place] [place] [address] documented as of this encounter Visit Diagnoses Diagnosis Aortic valve stenosis, etiology of cardiac valve disease unspecified documented in this encounter Care Teams Solar Lab Technician Relationship Specialty Start Date End Date Magdalena Acosta MD [address] [place] [address] PCP - General Family Medicine 02/05/23 documented as of this encounter
--- OUTSIDE RECORDS SUMMARY | 2024-07-15 12:32 | XMS_ITS | Encounter Summary ---
Author Organization [facility] [place] [address] Care Team Providers Care Perennial House Manager Name Role Phone Magdalena Acosta MD Primary Care Provider [phone] Encounter Details Date Type Department Care Team [...] 11/02/2024 12:00 PM EDT Appointment [place] [address] 11/02/2024 1:00 PM EDT Office [place] [address] Magdalena Peralta MD [facility] [place] [address] 03/01/2025 4:15 PM EDT Office Visit Dermatology at [address] [place] [address] Marek Bonilla MD [address] [facility], [place] [address] documented as of this encounter Visit Diagnoses Not on filedocumented in this encounter Care Teams Perennial House Manager Relationship Specialty Start Date End Date Magdalena Acosta MD [address] [place] [address] PCP - General Family Medicine 02/05/23 documented as of this encounter
--- OUTSIDE RECORDS SUMMARY | 2024-07-15 12:32 | XMS_ITS | Encounter Summary ---
Author Organization [facility] Address [facility] [place] [address] Care Team Providers Care Nursing Clerk Name Role Phone Ashley Quirogazac Shields APRN Primary Care Provider [phone] Reason for Referral * Consultation (Routine) - Closed Specialty Diagnoses / Procedures Referred By Contac t Referred To Contact Neurology Diagnoses Neck pain Popeye Rogers MD [facility] [place] [address] Kyra Haas MD [facility] [address] [address] Referral ID Status Reason Start Date Expiration Date V isits Requested Visits Authorized [id number] Closed Consult, Test & Treat 06/29/2022 06/29/2023 1 1 Reason for Visit * Reason Comments Neck Pain Weak in both arms, p ain and tingling in arms and hands Encounter Details Date Type Department Care Team (Late st Contact Info) Description 06/29/2022 10:20 AM EST Office Visit [place] [address] Popeye Rogers MD [facility] [place] [address] Neck pain Social History Tobacco Use Types [...] have EMG and nerve conduction studies in [place] that showed carpal tunnel syndrome. I do not have a copy of that report. documented in this encounter Plan of Treatment Upcoming Encounters Date Type Department Care Team (Late st Contact Info) Description 11/02/2024 12:00 PM EDT Appoint[place] [address] 11/02/2024 1:00 PM EDT Office [place] [address] Magdalena Peralta MD [facility] [place] [address] 03/01/2025 4:15 PM EDT Office Visit Dermatology at [address] [place] [address] Marek Bonilla MD [address] [facility], [place] [address] Scheduled Referrals Name Type Priority Associated Diagnoses Orde r Schedule Referral to Neurology Outpatient Referral Routine Neck pain Ordered: 06/29/2022 documented as of this encounter Visit Diagnoses Diagnosis Neck pain Cervicalgia documented in this encounter Care Teams Nursing Clerk Relationship Specialty Start Date End Date Deborah Quiroga APRN PCP - General Family Medicine 03/24/16 02/04/23 documented as of this encounter
--- OUTSIDE RECORDS SUMMARY | 2024-07-15 12:32 | XMS_ITS | Encounter Summary ---
Author Organization [facility] [place] [address] Care Team Providers Care Oncology Coordinator Name Role Phone Deborah Quiroga APRN Primary Care Provider [phone] Encounter Details Date Type Department Care Team (Latest Contact Info) Description 07/03/2022 12:28 PM EST - 07/03/2022 1:35 PM EST Hospital Encounter [place]ology [place] [address] Chronic idiopathic neutropenia Discharge Disposition: Home Social [...] 11/02/2024 12:00 PM EDT [place] [address] 11/02/2024 1:00 PM EDT Office [place] [address] Magdalena Peralta MD [facility] [place] [address] 03/01/2025 4:15 PM EDT Office Visit Dermatology at [place] [address] [place] [address] Marek Bonilla MD [address], [place] [address] documented as of this encounter Procedures Procedure [...] 12:40 PM EST) Neutrophil % 72.9 % [facility] Neutrophil Absolute 2.61 1.70 - 6.10 x10(3)/mc L [facility] Lymph % 18.4 % [facility] Lymphocytes Abs 0.7(L) 0.9 - 3.2 x10(3)/mc L [facility] Monocyte % 8.4 % [facility] Monocyte Abs 0.3 0.3 - 0.9 x10(3)/ L [facility] Eos % 0.0 % [facility] Eosinophils Abs 0.0 0.0 - 0.4 x10(3)/ L [facility] Basophil % 0.3 % [facility] Baso Absolute [...] HEMATOLOGY ORDERAB LES [facility] [place] [address] * (ABNORMAL) Hemogram (07/03/2022 12:40 PM EST) White Blood Cell 3.6(L) 4.0 - 9.5 x10(3)/mc L [facility] Red Blood Cell 3.61(L) 4.00 - 5.21 x10(6)/mc L [facility] Hemoglobin 11.7 11.7 - 15.5 g/dL [facility] Hematocrit 34.5(L) 35.7 - 45.8 % [facility] Mean Cell Volume 95.6(H) 82.6 - 94.4 fL [facility] Mean Cell Hemoglobin 32.4(H) 27.1 - 32.0 pg [facility] Mean Cell Hemoglobin Concentration 33.9 31.7 - 35.0 g/dL [facility] Platelet 171 145 - 357 x10(3)/mc L [facility] RDW Standard Deviation 40.5 37.0 - 46.0 [facility] RDW coefficient of variation 11.5 11.5 - 14.1 % [facility] Mean Platelet Volume 9.2 7.6 - 12.9 fL [facility] NRBC% auto 0.0 % [facility] NRBC Absolute 0.000 0.000 - 0.000 x10(3)/mc L [facility] Blood 07/03/2022 12:4 0 PM EST 07/03/2022 1:03 PM EST Narrative Resulting Agency Comment Spec In Lab Markel Borjas MD HEMATOLOGY ORDERAB LES [facility] [place] [address] * (ABNORMAL) Comprehensive metabolic panel (non-fasting) (07/03/2022 [...] CHEMISTRY ORDERABL ES Performing Organization Address City/State/[facility] Co de Phone Number [facility] [place] [address] documented in this encounter Visit Diagnoses Diagnosis Chronic idiopathic neutropenia Other neutropenia documented in this encounter Care Teams Oncology Coordinator Relationship Specialty Start Date End Date Deborah Quiroga, ANURAG PCP - General Family Medicine 03/24/16 02/04/23 documented as of this encounter
--- OUTSIDE RECORDS SUMMARY | 2024-07-15 12:32 | XMS_ITS | Encounter Summary ---
[place] [address] Care Team Providers Care Logging Shovel Operator Name Role Phone Deborah Quiroga APRN Primary Care Provider [phone] Reason for Referral * Consultation (Routine) - Closed Specialty Diagnoses / Procedures Referred By Contac t Referred To Contact Rheumatology Diagnoses Positive FRANCISCO (antinuclear antibody) Arthralgia, unspecified joint Sandy Wu APRN [address] [place] [address] [facility] Rheumatology [address] [place] [id number] Referral ID Status Reason Start Date Expiration Date V isits Requested Visits Authorized [id number] Closed Consult, Test & Treat PCP Updated and/or Approved 01/01/2022 01/01/2023 6 6 Encounter Details Date Type Department Care Team (Latest Contact Info) Description 01/01/2022 Transcribe Orders eDH Incoming Referrals [phone] Sandy Wu APRN [address] [place], [place] [id number] Positive FRANCISCO (antinuclear antibody); Arthralgia, unspecified joint [...] 11/02/2024 12:00 PM EDT Appointment [place] [address] 11/02/2024 1:00 PM EDT Office [place] [address] Magdalena Peralta MD [facility] [place] [address] 03/01/2025 4:15 PM EDT Office Visit Dermatology at [place] [address] [facility] [place] [address] Marek Bonilla MD [address] [facility], [place] [address] Scheduled Referrals Name Type Priority Associated Diagnoses Orde r Schedule Referral to Rheumatology Outpatient Referral Routine Positive FRANCISCO (antinuclear antibody) Arthralgia, unspecified joint Ordered: 01/01/2022 documented as of this encounter Visit Diagnoses Diagnosis Positive FRANCISCO (antinuclear antibody) Other and unspecified nonspecific immunological findings Arthralgia, unspecified joint documented in this encounter Care Teams Logging Shovel Operator Relationship Specialty Start Date End Date Deborah Quiroga APRN PCP - General Family Medicine 03/24/16 02/04/23 documented as of this encounter
--- OUTSIDE RECORDS SUMMARY | 2024-07-15 12:32 | XMS_ITS | Encounter Summary ---
Author Organization [facility] Address [facility] [place] [address] Care Team Providers Care Latex Foam Worker Name Role Phone Ashley Quirogan [place] ANURAG Primary Care Provider [phone] Encounter Details Date Type Department Care Team (Late st Contact Info) Description 01/14/2023 Refill Dermatology at [address] [address] Lupe Connor RN Social History [...] She would like the medication called into [facility] in [facility]. Discussed with Dr. Bonilla and he has approved refill of the Doxycycline 50 mg take one capsule by mouth daily in the evenings dispense 30 capsules with 2 refills. Patient notified. documented in this encounter Plan of Treatment Upcoming Encounters Date Type Department Care Team (Late st Contact Info) Description 11/02/2024 12:00 PM EDT [place] [address] 11/02/2024 1:00 PM EDT [place] [address] Magdalena Peralta MD [facility] [place] [address] 03/01/2025 4:15 PM EDT Office Visit Dermatology at [place] [address] [place] [address] Marek Bonilla MD [address], [place] [place] [address] documented as of this encounter Visit Diagnoses Not on filedocumented in this encounter Care Teams Latex Foam Worker Relationship Specialty Start Date End Date Deborah Quiroga APRN PCP - General Family Medicine 03/24/16 02/04/23 documented as of this encounter
--- OUTSIDE RECORDS SUMMARY | 2024-07-15 12:32 | XMS_ITS | Encounter Summary ---
Author Organization [facility] [place] [address] Care Team Providers Care Store Specialist Name Role Phone Magdalena Acosta MD Primary Care Provider [phone] Encounter Details Date Type Department Care Team [...] 11/02/2024 12:00 PM EDT Appointment [place] [address] 11/02/2024 1:00 PM EDT Office [place] [address] Magdalena Peralta MD [facility] [place] [address] 03/01/2025 4:15 PM EDT Office Visit Dermatology at [address] [place] [address] Marek Bonilla MD [address] [facility] [address] documented as of this encounter Visit Diagnoses Not on filedocumented in this encounter Care Teams Store Specialist Relationship Specialty Start Date End Date Magdalena Acosta MD [address] [place] [address] PCP - General Family Medicine 02/05/23 documented as of this encounter
--- OUTSIDE RECORDS SUMMARY | 2024-07-15 12:32 | XMS_ITS | Encounter Summary ---
Author Organization [facility] [place] [address] Care Team Providers Care Mushroom Press Operator Name Role Phone Deborah Quiroga APRN Primary Care Provider [phone] Reason for Referral * Consultation (Routine) - Closed Specialty Diagnoses / Procedures Referred By Crispin maxwell Referred To Contact Neurology Diagnoses Polyneuropathy Deborah Quiroga APRN [address] [facility] [address] [place] [address] [facility] Neurology [address] [place] [phone] Referral ID Status Reason Start Date Expiration Date V isits Requested Visits Authorized [id number] Closed Consult, Test & Treat 10/29/2022 10/29/2023 1 1 Encounter Details Date Type Department Care Team (Latest Contact Info) Description 10/29/2022 Transcribe Orders eDH Incoming Referrals [phone] Deborah Quiroga APRN [address] [facility] [address] [place] [address] Polyneuropathy (Primary Dx) Social History [...] 11/02/2024 12:00 PM EDT Appointment [place] [address] 11/02/2024 1:00 PM EDT Office [place] [address] Magdalean Peralta MD [facility] [place] [address] 03/01/2025 4:15 PM EDT Office Visit Dermatology at [place] [address] [place] [address] Marek Bonilla MD [address] [facility] [address] Katherine [place] [address] Scheduled Referrals Name Type Priority Associated Diagnoses Orde r Schedule Referral to Neurology Outpatient Referral Routine Polyneuropathy Ordered: 10/29/2022 documented as of this encounter Visit Diagnoses Diagnosis Polyneuropathy- Primary Unspecified hereditary and idiopathic peripheral neuropathy documented in this encounter Care Teams Mushroom Press Operator Relationship Specialty Start Date End Date Deborah Quiroga APRN PCP - General Family Medicine 03/24/16 02/04/23 documented as of this encounter
--- OUTSIDE RECORDS SUMMARY | 2024-07-15 12:32 | XMS_ITS | Encounter Summary ---
[place] [address] Care Team Providers Care Trench Shovel Operator Name Role Phone Magdalena Acosta MD Primary Care Provider [phone] Reason for Visit * Reason Comments Annual Exam Encounter Details Date Type Department Care Team (Late st Contact Info) Description 02/05/2023 2:30 PM EDT Office Visit Dermatology at [address] [address] Marek Bonilla MD [address] [facility] [address] A DERMATOLOGY [place], [place] [address] Rosacea; Ocular rosacea; Nevus Social History Tobacco [...] cutaneous and ocular 2. Previously told by blanket weaver that she had corneal tears from her [...] 11/02/2024 12:00 PM EDT [place] [address] 11/02/2024 1:00 PM EDT Office [place] [address] Magdalena Peralta MD [facility] [place] [address] 03/01/2025 4:15 PM EDT Office Visit Dermatology at [place] [address] [facility] [place] [address] Marek Bonilla MD [address] [facility] [address] [place] [address] documented as of this encounter Visit Diagnoses Diagnosis Rosacea Ocular rosacea Rosacea Nevus Benign neoplasm of skin, site unspecified documented in this encounter Care Teams Trench Shovel Operator Relationship Specialty Start Date End Date Magdalena Acosta MD [address] [place] [address] PCP - General Family Medicine 02/05/23 documented as of this encounter
--- OUTSIDE RECORDS SUMMARY | 2024-07-15 12:32 | XMS_ITS | Encounter Summary ---
Author Organization [facility] [place] [address] Care Team Providers Care Auto Body Mechanic Apprentice Name Role Phone Deborah Quiroga APRN Primary Care Provider [phone] Encounter Details Date Type Department Care Team (Late st Contact Info) Description 06/05/2021 Interpretation Only [address] [address] Deborah Quiroga APRN [address] [address] Social History Tobacco Use Types Packs/Day Years [...] 11/02/2024 12:00 PM EDT Appoint[place] [address] 11/02/2024 1:00 PM EDT Office [place] [address] Magdalena Peralta MD [facility] [place] [address] 03/01/2025 4:15 PM EDT Office Visit Dermatology at [place] [address] [facility] [address] [place] [address] Marek Bonilla MD [address] [facility] [address], [place] [address] documented as of this encounter Procedures Procedure Name Priority Date/Time Associated Diagnosis Comments DXA CENTRAL SPINE, HIP, AND/OR WHOLE BODY (GENERIC) Routine 06/05/2021 11:58 AM EDT documented in this encounter Results * DXA Central Spine, Hip, and/or Whole Body (Generic) (06/05/2021 11:58 AM EDT) PT CLASS O RAD ADMITDTTM RAD PT RAD INFO [id number]^E VERETT^DEBORAH ^E RAD EXAM DESC XDXAC^DEXA SCAN [...] have questions please contact the health healthcare representative that requested your imaging first. ? Electronically signed by: Rocael Villatoro MD, [facility] ([phone]), at 06/05/2021 12:00 PM Narrative 06/05/2021 12:00 [...] who have questions please contactthe health healthcare representative that requested your imaging first. Electronically signed by: Rocael Villatoro MD, [facility]([phone]), at 06/05/2021 12:00 PM Deborah LLAMAS DEXA ORDERABLES documented in this encounter Visit Diagnoses Not on filedocumented in this encounter Care Teams Auto Body Mechanic Apprentice Relationship Specialty Start Date End Date Deborah Quiroga APRN PCP - General Family Medicine 03/24/16 02/04/23 documented as of this encounter
--- OUTSIDE RECORDS SUMMARY | 2024-07-15 12:32 | XMS_ITS | Encounter Summary ---
Author Organization Counts Include [facility] Address [facility] [place] [address] Care Team Providers Care Test Preparer Name Role Phone Magdalena Acosta MD Primary Care Provider [phone] Reason for Visit * Consultation (Routine) - Closed Specialty Diagnoses / Procedures Referred By Contac t Referred To Contact Rheumatology Diagnoses Weakness Kyra Haas MD [facility] [address] [place] [address] [facility] Rheumatology [address] [place] [phone] Referral ID Status Reason Start Date Expiration Date V isits Requested Visits Authorized [id number] Closed Consult, Test & Treat PCP Updated and/or Approved 02/25/2023 02/25/2024 6 6 Encounter Details Date Type Department Care Team (Late st Contact Info) Description 03/18/2023 1:00 PM EDT [place] [address] Kia Viramontes, [facility] [place] [address] Magdalena Peralta MD [facility] [place] [address] Positive FRANCISCO (antinuclear antibody) Social [...] 1:5120 speckled VIC negative Myositis panel with BIOMEDICAL SPECIALIST ab 149.1 (positive) Anti U1RNP IgG [...] a chair without assistance of upper extremities. Video Clerk strength 3+/5 bilaterally; otherwise large muscle groups [...] due to risk of retinal toxicity with fci Plaquenil use, which she already does. Recommendations: #mixed connective tissue disease Start hydroxychloroquine 200 mg qd Labs today: repeat FRANCISCO, dsDNA, complements, CBC, CMP, CK, ESR, CRP Follow up 1 month The patient was seen and discussed with Dr. Wander Peralta MD Rheumatology Fellow Pager: [phone] CC: Kyra Haas * Kia Viramontes DO - 03/18/2023 1:00 PM EDT ATTENDING ADDENDUM The patient's history was reviewed, and I interviewed and examined the patient with Dr. Peralta. Catalina with her summary, findings, and plan. documented in this encounter Plan of Treatment Upcoming Encounters Date Type Department Care Team (Late st Contact Info) Description 11/02/2024 12:00 PM EDT [place] [address] 11/02/2024 1:00 PM EDT [place] [address] Magdalena Peralta MD [facility] [place] [address] 03/01/2025 4:15 PM EDT Office Visit Dermatology at [place] [address] [facility] [place] [address] Marek Bonilla MD [address] [facility], [place] [address] documented as of this encounter Results * Comprehensive metabolic panel (non-fasting) (03/18/2023 2:14 PM EDT) [facility] Glucose 93 65 - 199 mg/dL [facility] [...] DO CHEMISTRY ORDERABL ES Performing Organization Address City/State/[facility] Co de Phone Number [facility] [place] [address] * (ABNORMAL) FRANCISCO Ab by IFA (03/18/2023 2:14 PM EDT) FRANCISCO Ab Screen Test ? Result ?Flag ??Unit ??RefValue Antinuclear Ab, HEp-2 ?Positive 1:2560 ??@ ?<1:80 (Negative) ??Substrate, S ? ADDITIONAL INFORMATION --------- ?Method: Immunofluorescence using HEp-2 cellular substrate. ??FRANCISCO Titer: ? 1:2560 ??FRANCISCO Pattern: ? Speckled ?Test Performed by: ?[facility] ?[address] [place] [address] ?Manager Water: Raymond Chaudhry M.D. Ph.D.; CLIA# [id number] (A) [facility] Blood 03/18/2023 2:14 PM EDT 03/18/2023 3:02 PM EDT Narrative Resulting Agency Comment Spec In Lab Kia Viramontes DO CHEMISTRY ORDERABL ES [facility] [place] [address] * DNA Antibody (Double-Stranded) (03/18/2023 2:14 PM EDT) dsDNA Ab <0.6 <=15.0 IU/mL [facility] Comment: <10 negative 10-15 equivocal >15 positive This dsDNA antibody result was generated using a fluoroenzyme immunoassay on the [employer] Teach 250 analyzer. This quantitative test is designed to detect IgG antibodies directed against double stranded DNA in human serum. The presence of antibodies that recognize dsDNA is a highly specific marker for systemic lupus erythematosus. Please note that as of 05/26/2022 that this testing is performed by the Special Chemistry Laboratory at [facility]. This change in testing location is associated with a change is testing method and reference intervals. Please review the results of this test in association with the posted reference intervals. Blood 03/18/2023 2:14 PM EDT 03/19/2023 7:19 AM EDT Narrative Resulting Agency Comment Spec In Lab Kia Viramontes DO LAB SEND OUT ORDER JODIE Performing Organization Address City/[facility] Co de Phone Number [facility] [place] [address] * CK (03/18/2023 2:14 PM EDT) Creatine Kinase 38 0 - 160 unit/L [facility] Blood 03/18/2023 2:14 PM EDT 03/18/2023 2:24 PM EDT Narrative Resulting Agency Comment Spec In Lab Kia Viramontes DO CHEMISTRY ORDERABL ES Performing Organization Address [facility] Co de Phone Number [facility] [place] [address] * C4 Complement (03/18/2023 2:14 PM EDT) Complement C4 30 10 - 40 mg/dL [facility] Blood 03/18/2023 2:14 PM EDT 03/18/2023 2:24 PM EDT Narrative Resulting Agency Comment Spec In Lab Kia Viramontes DO CHEMISTRY ORDERABL ES Performing Organization Address [facility] de Phone Number [facility] [place] [address] * C3 Complement (03/18/2023 2:14 PM EDT) Complement C3 142 90 - 180 mg/dL [facility] Blood 03/18/2023 2:14 PM EDT 03/18/2023 2:24 PM EDT Narrative Resulting Agency Comment Spec In Lab Kia Viramontes DO CHEMISTRY ORDERABL ES Performing Organization Address [facility] Co de Phone Number [facility] [place] [address] * CRP, acute inflammation (03/18/2023 2:14 PM EDT) C-Reactive Protein 3.0 <=4.9 mg/L [facility] Blood 03/18/2023 2:14 PM EDT 03/18/2023 2:24 PM EDT Narrative Resulting Agency Comment Spec In Lab Kia Viramontes DO CHEMISTRY ORDERABL ES Performing Organization Address [facility] Co de Phone Number [facility] [place] [address] * (ABNORMAL) Sedimentation rate (03/18/2023 2:14 PM [...] DO HEMATOLOGY ORDERAB LES Performing Organization Address [facility] Co de Phone Number [facility] [place] [address] documented in this encounter Visit Diagnoses Diagnosis Positive FRANCISCO (antinuclear antibody) Other and unspecified nonspecific immunological findings documented in this encounter Care Teams Test Preparer Relationship Specialty Start Date End Date Magdalena Acosta MD [address] [place] [address] PCP - General Family Medicine 02/05/23 documented as of this encounter
--- OUTSIDE RECORDS SUMMARY | 2024-07-15 12:32 | XMS_ITS | Encounter Summary ---
Author Organization [facility] Address [place] [address] Care Team Providers Care Tugboat Operator Name Role Phone Deborah Quiroga APRN Primary Care Provider [phone] Reason for Visit * Reason Comments Follow-up Encounter Details Date Type Department Care Team (Late st Contact Info) Description 07/03/2022 1:30 PM EST Office Visit Hematology [place] [address] Markel Borjas MD [facility] [address] [place] [address] Consuelo Sommer APRN [facility] [address] [place] [address] Chronic idiopathic neutropenia; Dysuria Social History Tobacco [...] TOUCH PREP, CLOT SECTION, CORE ??BIOPSY); [OSR# [id number], COLLECTED 06/23/2016, 19 SLIDES]: ?1. ??Normocellular marrow [...] a clonal lymphoproliferative or myeloproliferative disorder (OSR# [id number]) Chromosome analysis on the marrow aspirate revealed [...] Works at [employer] in [employer] department Plays competitive scrabble, and goes to [employer] Family History: No known primary marrow disorders [...] intact. Extremities: No edema. Labs: Hgb= 11.7 Ayku=705 ANC= 2.5 Imaging As above - reviewed [...] 12:00 PM EDT Appointment [place] [address] 11/02/2024 1:00 PM EDT Office [place] [address] Magdalena Peralta MD [facility] [address] 03/01/2025 4:15 PM EDT Office Visit Dermatology at [place] [address] [facility] [place] [address] Marek Bonilla MD [address] [facility] [address] [place] [address] documented as of this encounter Procedures Procedure [...] tract infection, submit a new specimen. (A) [facility] Clean Catch Urine 07/03/2022 2:00 PM EST 07/03/2022 5:55 PM EST Narrative Resulting Agency Comment Spec In Lab Markel Borjas MD MICROBIOLOGY - GEN ERAL ORDERABLES Performing Organization Address City/[facility]/ZIP Co de Phone Number [facility] [place] [address] * (ABNORMAL) Urinalysis Microscopic Exam (07/03/2022 2:00 PM EST) RBC, Urine 2 0 - 4 /HPF [facility] WBC, Urine 14(H) 0 - 5 /HPF [facility] Bacteria, Urine Occasional (A) None /HPF [facility] Squamous Epithelial Cells Raw Data, Urine 12(H) <=4 /HPF [facility] Hyaline Casts, Urine 2 0 - 2 /LPF [facility] Clean Catch Urine 07/03/2022 2:00 PM EST 07/03/2022 2:29 PM EST Narrative Resulting Agency Comment Spec In Lab Markel Borjas MD URINE ORDERABLES Performing Organization Address City/[facility]/ZIP Co de Phone Number [facility] [place] [address] * (ABNORMAL) Urinalysis with reflex Culture (07/03/2022 2:00 PM EST) Glucose, Urine Dipstick Negative Negative mg/dL [facility] Protein, Urine Dipstick 30(A) Negative mg/dL [facility] Bilirubin, Urine Dipstick Negative Negative mg/dL [facility] Comment: Clinical correlation required for positive Urine Bilirubin results as false positive may occur with some drugs and drug related products. If a false positive is suspected a serum total bilirubin should be considered if clinically indicated. Urobilinogen, Urine Dipstick Normal Normal mg/dL [facility] pH, Urn (dipstick) 5.5 5.0 - 8.0 [facility] Blood, Urine Dipstick Negative Negative mg/dL [facility] Ketone, Urine Dipstick Trace(A) Negative mg/dL [facility] Nitrite, Urine Dipstick Negative Negative [facility] Leukocytes, Urine Dipstick Small(A) Negative [facility] Appearance, Urine Dipstick Clear Clear [facility] Specific [place] Urine Automated 1.022 1.005 - 1.030 [facility] Color, Urine Dipstick Yellow Yellow [facility] Reflex to Culture Yes [facility] Clean Catch Urine 07/03/2022 2:00 PM EST 07/03/2022 2:29 PM EST Narrative Resulting Agency Comment Spec In Lab Markel Borjas MD URINE ORDERABLES [facility] [place] [address] * (ABNORMAL) Comprehensive metabolic panel (non-fasting) (07/03/2022 12:40 PM EST) Glucose 92 65 - 199 mg/dL [facility] Comment:Diabetes: >=200 mg/d L plus symptoms Blood Urea Nitrogen 22(H) 8 - 18 mg/dL [facility] Creatinine 0.80 0.70 - 1.20 mg/dL [facility] [...] [facility] Carbon Dioxide 23 22 - 31 mmol/L [facility] Anion Gap 11 5 - 15 mmol/L [facility] Calcium 10.1 8.5 - 10.5 mg/dL [facility] Protein, Total 7.6 6.1 - 8.0 g/dL [facility] Albumin 4.1 3.2 - 5.2 g/dL [facility] Aspartate Aminotransferase 25 0 - 30 unit/L [facility] Alanine Aminotransferase 14 0 - 30 unit/L [facility] Alkaline Phosphatase 80 35 - 105 unit/L [facility] Bilirubin, Total 0.3 0.2 - 1.3 mg/dL [facility] Est Glomerular Filtration Rate 81 >=60 mL/min/1. 73 m?? [facility] [...] Lab Markel Borjas MD CHEMISTRY ORDERABL ES [facility] [place] [address] documented in this encounter Visit Diagnoses Diagnosis Chronic idiopathic neutropenia Other neutropenia Dysuria documented in this encounter Care Teams Tugboat Operator Relationship Specialty Start Date End Date Deborah Quiroga, SHOWER ENCLOSURE INSTALLER PCP - General Family Medicine 03/24/16 02/04/23 documented as of this encounter
--- OUTSIDE RECORDS SUMMARY | 2024-07-15 12:32 | XMS_ITS | Encounter Summary ---
Author Organization [facility] Address [facility] [place] [address] Care Team Providers Care Guest Services Name Role Phone Ashley Quirogazac Shields APRN Primary Care Provider [phone] Encounter Details Date Type Department Care Team (Latest Contact Info) Description 06/22/2022 10:00 AM EST Office [place] [address] Raymond Loredo MD [facility] [address] Raynaud's phenomenon without gangrene; Positive FRANCISCO (antinuclear [...] can be done locally or here at [facility] that the current time is not particularly [...] for surgery by Dr. Rogers here at [facility]. In addition to painful dysesthesias in her [...] over radiocarpal or ulnocarpal joints. 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 SJC/TJC 0/0. Knees: Decreased flexion [...] PM EDT [place] [address] 11/02/2024 1:00 PM EDT Office [place] [address] Magdalena Peralta MD [facility] [place] [address] 03/01/2025 4:15 PM EDT Office Visit Dermatology at [place] [address] [place] [address] Marek Bonilla MD [address] [facility], [place] [address] documented as of this encounter Visit Diagnoses Diagnosis Raynaud's phenomenon without gangrene Positive FRANCISCO (antinuclear antibody) Other and unspecified nonspecific immunological findings Primary osteoarthritis involving multiple joints Cervical disc disorder at C6-C7 level with radiculopathy documented in this encounter Care Teams Guest Services Relationship Specialty Start Date End Date Deborah Quiroga APRN PCP - General Family Medicine 03/24/16 02/04/23 documented as of this encounter
--- OUTSIDE RECORDS SUMMARY | 2024-07-15 12:32 | XMS_ITS | Encounter Summary ---
Author Organization [facility] [place] [address] Care Team Providers Care Steak Tenderizer Machine Name Role Phone Ashley Quirogazac Shields APRN Primary Care Provider [phone] Encounter Details Date Type Department Care Team [...] 11/02/2024 12:00 PM EDT Appointment [place] [address] 11/02/2024 1:00 PM EDT Office Visit [place] [address] Magdalena Peralta MD [facility] [place] [address] 03/01/2025 4:15 PM EDT Office Visit Dermatology at [address] [place] [address] Marek Bonilla MD [address] [facility], [place] [address] documented as of this encounter Visit Diagnoses Not on filedocumented in this encounter Care Teams Steak Tenderizer Machine Relationship Specialty Start Date End Date Deborah Quiroga APRN PCP - General Family Medicine 03/24/16 02/04/23 documented as of this encounter
--- OUTSIDE RECORDS SUMMARY | 2024-07-15 12:32 | XMS_ITS | Encounter Summary ---
Author Organization [facility] [place] [address] Care Team Providers Care Front End Web Designer Name Role Phone Deborah Quiroga APRN Primary Care Provider [phone] Encounter Details Date Type Department Care Team (Late st Contact Info) Description 06/05/2021 Interpretation Only [address] [address] Deborah Quiroga APRN [address] [phone] Social History Tobacco Use Types Packs/Day Years [...] 11/02/2024 12:00 PM EDT Appointment [place] [address] 11/02/2024 1:00 PM EDT Office [place] [address] Magdalena Peralta MD [facility] [place] [address] 03/01/2025 4:15 PM EDT Office Visit Dermatology at [place] [address] [facility] [address] [place] [address] Marek Bonilla MD [address] [facility] [address], [place] [address] documented as of this encounter Procedures Procedure Name Priority Date/Time Associated Diagnosis Comments MAMMO SCREENING CAD BILATERAL Routine 06/05/2021 11:42 AM EDT documented in this encounter Results * Mammo Screening Cad Bilateral (06/05/2021 11:42 AM EDT) PT CLASS O DH RAD ADMITDTTM DH RAD PT DH RAD MD INFO [id number]^EV ERETT^DEBORAH^E DH RAD EXAM DESC MADDSC^SCREEN MAMMO [...] who have questions please contact the health chronic care nurse that requested your imaging first. ? Electronically signed by: Rocael Villatoro MD, [facility] ([phone]), at 06/05/2021 1:27 PM Narrative 06/05/2021 1:27 [...] patients who have questions please contactthe health chronic care nurse that requested your imaging first. Deborah Quiroga APRN IMG MAMMO ORDERABLE S documented in this encounter Visit Diagnoses Not on filedocumented in this encounter Care Teams Front End Web Designer Relationship Specialty Start Date End Date Deborah Quiroga APRN PCP - General Family Medicine 03/24/16 02/04/23 documented as of this encounter
--- OUTSIDE RECORDS SUMMARY | 2024-07-15 12:32 | XMS_ITS | Encounter Summary ---
Author Organization [facility] [place] [address] Care Team Providers Care Reactor Fueling Supervisor Name Role Phone Ashley Quirogan Cornelius ANURAG Primary Care Provider [phone] Encounter Details Date Type Department Care Team (Late st Contact Info) Description 02/06/2020 Orders Only [place] [address] Markel Borjas MD [facility] DR HEMATOLOGY AND ONCOLOGY [place], [place] [phone] Neutropenia, unspecified type Social History Tobacco Use [...] 11/02/2024 12:00 PM EDT [place] [address] 11/02/2024 1:00 PM EDT [place] [address] Magdalena Peralta MD [facility] [place] [address] 03/01/2025 4:15 PM EDT Office Visit Dermatology at [place] [address] [place] [address] Marek Bonilla MD [address] [facility] [address], [place] [address] documented as of this encounter Visit Diagnoses Diagnosis Neutropenia, unspecified type documented in this encounter Care Teams Reactor Fueling Supervisor Relationship Specialty Start Date End Date Deborah Quiroga APRN PCP - General Family Medicine 03/24/16 02/04/23 documented as of this encounter
--- OUTSIDE RECORDS SUMMARY | 2024-07-15 12:32 | XMS_ITS | Encounter Summary ---
Author Organization Replaced By [facility] Address [facility] [place] [address] Care Team Providers Care Blasting Gang Miner Name Role Phone Ashley Quirogan Cornelius ANURAG Primary Care Provider [phone] Encounter Details Date Type Department Care Team (Late st Contact Info) Description 03/04/2020 External Results Hematology and Oncology at [place] [phone] TherouxBhumi Social History Tobacco Use Types Packs/Day [...] 11/02/2024 12:00 PM EDT Appointment [place] [address] 11/02/2024 1:00 PM EDT Office [place] [address] Magdalena Peralta MD [facility] RHEUMATOLOGY DEPT [place] [phone] 03/01/2025 4:15 PM EDT Office Visit Dermatology at [place] [address] [facility] [place] [address] Marek Bonilla MD [address], [place] [address] documented as of this encounter Procedures Procedure [...] filedocumented in this encounter Care Teams Blasting Gang Miner Relationship Specialty Start Date End Date Deborah Quiroga, MEDICAL PROGRAM SPECIALIST PCP - General Family Medicine 03/24/16 02/04/23 documented as of this encounter
--- OUTSIDE RECORDS SUMMARY | 2024-07-15 12:32 | XMS_ITS | Encounter Summary ---
Author Organization [facility] Address [facility] Erika lópez[place]yl[place] [address] Care Team Providers Care Gear Nicker Name Role Phone Deborah Quiroga APRN Primary Care Provider [phone] Encounter Details Date Type Department Care Team (Late st Contact Info) Description 01/09/2022 Refill Dermatology at [address] [place] [address] Lupe Connor RN Social History [...] 12:00 PM EDT Appointment [place] [address] 11/02/2024 1:00 PM EDT Office [place] [address] Magdalena Peralta MD [facility] [place] [address] 03/01/2025 4:15 PM EDT Office Visit Dermatology at [address] [place] [address] Marek Bonilla MD [address] [facility] [address] [place] [address] documented as of this encounter Visit Diagnoses Not on filedocumented in this encounter Care Teams Gear Nicker Relationship Specialty Start Date End Date Deborah Quiroga APRN PCP - General Family Medicine 03/24/16 02/04/23 documented as of this encounter
--- OUTSIDE RECORDS SUMMARY | 2024-07-15 12:32 | XMS_ITS | Encounter Summary ---
Author Organization [facility] [place] [address] Care Team Providers Care Supervisor Adult Education Name Role Phone Magdalena Acosta MD Primary Care Provider [phone] Encounter Details Date Type Department Care Team [...] 11/02/2024 12:00 PM EDT [place]oint[place] [address] 11/02/2024 1:00 PM EDT Office [place] [address] Magdalena Peralta MD [facility] [place] [address] 03/01/2025 4:15 PM EDT Office Visit Dermatology at [address] [place] [address] Marek Bonilla MD [address] [facility], [place] [address] documented as of this encounter Visit Diagnoses Not on filedocumented in this encounter Care Teams Supervisor Adult Education Relationship Specialty Start Date End Date Magdalena Acosta MD [address] [place] [address] PCP - General Family Medicine 02/05/23 documented as of this encounter
--- OUTSIDE RECORDS SUMMARY | 2024-07-15 12:32 | XMS_ITS | Encounter Summary ---
Author Organization [facility] Address [facility] Erika lópez[place]yl[place] [address] Care Team Providers Care Senior Net Engineer Name Role Phone Magdalena Acosta MD Primary Care Provider [phone] Encounter Details Date Type Department Care Team (Latest Contact Info) Description 03/18/2023 2:30 PM EDT Laboratory Appointment Lab [address] [address] Positive FRANCISCO (antinuclear antibody) Social [...] 11/02/2024 12:00 PM EDT [place] [address] 11/02/2024 1:00 PM EDT [place] [address] Magdalena Peralta MD [facility] [place] [address] 03/01/2025 4:15 PM EDT Office Visit Dermatology at [address] [address] Marek Bonilla MD [address], [place] [address] documented as of this encounter Procedures Procedure [...] 2:14 PM EDT) Neutrophil % 71.2 % [facility] Neutrophil Absolute 2.26 1.70 - 6.10 x10(3)/mc L [facility] Lymph % 18.2 % [facility] Lymphocytes Abs 0.6(L) 0.9 - 3.2 x10(3)/ L [facility] Monocyte % 9.7 % [facility] Monocyte Abs 0.3 0.3 - 0.9 x10(3)/ L [facility] Eos % 0.3 % [facility] Eosinophils Abs 0.0 0.0 - 0.4 x10(3)/ L [facility] Basophil % 0.6 % [facility] Baso Absolute 0.0 0.0 - 0.1 x10(3)/ L [facility] Immature Gran % 0.00 % [facility] Comment: Immature granulocytes(IG's)percentage and absolute count will include metamyelocytes, myelocytes, and promyelocytes. Blood smears from CBCs yielding IG's will be scanned manually for concordance. If this scan disagrees with the automated IG or if promyelocytes are noted, a manual differential will be performed. Immature Gran Absolute 0.00 0.00 - 0.04 x10(3)/ L [facility] Blood 03/18/2023 2:14 PM EDT 03/18/2023 2:24 PM EDT Narrative Resulting Agency Comment Spec In Lab Magdalena Peralta MD HEMATOLOGY ORDERABLE S Performing Organization Address City/State/[facility] Co de Phone Number [facility] [place] [address] * (ABNORMAL) Hemogram (03/18/2023 2:14 PM EDT) White Blood Cell 3.2(L) 4.0 - 9.5 x10(3)/[facility] Red Blood Cell 3.44(L) 4.00 - 5.21 x10(6)/ L [facility] Hemoglobin 11.1(L) 11.7 - 15.5 g/dL [facility] Hematocrit 32.9(L) 35.7 - 45.8 % [facility] Mean Cell Volume 95.6(H) 82.6 - 94.4 fL [facility] Mean Cell Hemoglobin 32.3(H) 27.1 - 32.0 pg [facility] Mean Cell Hemoglobin Concentration 33.7 31.7 - 35.0 g/dL [facility] Platelet 144(L) 145 - 357 x10(3)/mc L [facility] RDW Standard Deviation 42.6 37.0 - 46.0 fL [facility] RDW coefficient of variation 12.3 11.5 - 14.1 % [facility] Mean Platelet Volume 9.4 7.6 - 12.9 fL [facility] NRBC% auto 0.0 % [facility] NRBC Absolute 0.000 0.000 - 0.000 x10(3)/mc L [facility] Blood 03/18/2023 2:14 PM EDT 03/18/2023 2:24 PM EDT Narrative Resulting Agency Comment Spec In Lab Magdalena Peralta MD HEMATOLOGY ORDERABLE S Performing Organization Address City/[facility]/ZIP Co de Phone Number [facility] [place] [address] * (ABNORMAL) Sedimentation rate (03/18/2023 2:14 PM EDT) Sedimentation Rate Automated 68(H) 2 - 39 mm/hr [facility] Comment: Effective July 12, 2019 new capillary photometric technology has resulted in a change in reference ranges. It is recommended that each ESR result be reviewed with its own age appropriate reference range. Blood 03/18/2023 2:14 PM EDT 03/18/2023 2:24 PM EDT Narrative Resulting Agency Comment Spec In Lab Kia Viramontes DO HEMATOLOGY ORDERAB LES [facility] [place] [address] * CRP, acute inflammation (03/18/2023 2:14 PM EDT) C-Reactive Protein 3.0 <=4.9 mg/L [facility] Blood 03/18/2023 2:14 PM EDT 03/18/2023 2:24 PM EDT Narrative Resulting Agency Comment Spec In Lab Kia D Wander DO CHEMISTRY ORDERABL ES Performing Organization Address [facility] Co de Phone Number [facility] [place] [address] * C3 Complement (03/18/2023 2:14 PM EDT) Complement C3 142 90 - 180 mg/dL [facility] Blood 03/18/2023 2:14 PM EDT 03/18/2023 2:24 PM EDT Narrative Resulting Agency Comment Spec In Lab Kia D Wander DO CHEMISTRY ORDERABL ES Performing Organization Address [facility] de Phone Number [facility] [place] [address] * C4 Complement (03/18/2023 2:14 PM EDT) Complement C4 30 10 - 40 mg/dL [facility] Blood 03/18/2023 2:14 PM EDT 03/18/2023 2:24 PM EDT Narrative Resulting Agency Comment Spec In Lab Kia D Wander DO CHEMISTRY ORDERABL ES Performing Organization Address [facility] de Phone Number [facility] [place] [address] * CK (03/18/2023 2:14 PM EDT) Creatine Kinase 38 0 - 160 unit/L [facility] Blood 03/18/2023 2:14 PM EDT 03/18/2023 2:24 PM EDT Narrative Resulting Agency Comment Spec In Lab Kia D Wander DO CHEMISTRY ORDERABL ES Performing Organization Address [facility] Co de Phone Number [facility] [place] [address] * DNA Antibody (Double-Stranded) (03/18/2023 2:14 PM EDT) dsDNA Ab <0.6 <=15.0 IU/mL [facility] Comment: <10 negative 10-15 equivocal >15 positive This dsDNA antibody result was generated using a fluoroenzyme immunoassay on the Scope 5 250 analyzer. This quantitative test is designed to detect IgG antibodies directed against double stranded DNA in human serum. The presence of antibodies that recognize dsDNA is a highly specific marker for systemic lupus erythematosus. Please note that as of 05/26/2022 that this testing is performed by the Special Chemistry Laboratory at [facility]. This change in testing location is associated with a change is testing method and reference intervals. Please review the results of this test in association with the posted reference intervals. Blood 03/18/2023 2:14 PM EDT 03/19/2023 7:19 AM EDT Narrative Resulting Agency Comment Spec In Lab Kia Viramontes DO LAB SEND OUT ORDER JODIE [facility] [place] [address] * (ABNORMAL) FRANCISCO Ab by IFA (03/18/2023 2:14 PM EDT) FRANCISCO Ab Screen Test ? Result ?Flag ??Unit ??RefValue Antinuclear Ab, HEp-2 ?Positive 1:2560 ??@ ?<1:80 (Negative) ??Substrate, S ? ADDITIONAL INFORMATION --------- ?Method: Immunofluorescence using HEp-2 cellular substrate. ??FRANCISCO Titer: ? 1:2560 ??FRANCISCO Pattern: ? Speckled ?Test Performed by: ?[facility] ?[address] [place] [address] ?Lumber Material Handler: Raymond Chaudhry M.D. Ph.D.; CLIA# [id number] ([id number]) [facility] Blood 03/18/2023 2:14 PM EDT 03/18/2023 3:02 PM EDT Narrative Resulting Agency Comment Spec In Lab Kia Viramontes DO CHEMISTRY ORDERABL ES Performing Organization Address City/State/[facility] Co de Phone Number [facility] [place] [address] * Comprehensive metabolic panel (non-fasting) (03/18/2023 2:14 PM EDT) Glucose 93 65 - 199 mg/dL [facility] Comment:Diabetes: >=200 mg/d L plus symptoms Blood Urea Nitrogen 18 8 - 18 mg/dL [facility] Creatinine 0.99 0.70 - 1.20 mg/dL [facility] Sodium 141 135 - 145 mmol/L [facility] Potassium 4.5 3.5 - 5.0 mmol/L [facility] Comment: Please note: ??Patients with WBC >100,000 may have falsely elevated Potassium levels. ??For accurate Potassium quantification in these patients send serum separator tube (gold top) for subsequent determinations. ??Contact the Clinical Chemistry Laboratory if there are any questions. Chloride 106 98 - 107 mmol/L [facility] Carbon Dioxide 24 22 - 31 mmol/L [facility] Anion Gap 11 5 - 15 mmol/L [facility] Calcium 10.0 8.5 - 10.5 mg/dL [facility] Protein, Total 7.3 6.1 - 8.0 g/dL [facility] Albumin 4.3 3.2 - 5.2 g/dL [facility] Aspartate Aminotransferase 26 0 - 30 unit/L [facility] Alanine Aminotransferase 11 0 - 30 unit/L [facility] Alkaline Phosphatase 91 35 - 105 unit/L [facility] Bilirubin, Total 0.4 0.2 - 1.3 mg/dL [facility] Est Glomerular Filtration Rate 62 >=60 mL/min/1. 73 m?? [facility] Comment: This patient's estimated GFR [...] Lab Kia Viramontes DO CHEMISTRY ORDERABL ES [facility] [place] [address] documented in this encounter Visit Diagnoses Diagnosis Positive FRANCISCO (antinuclear antibody) Other and unspecified nonspecific immunological findings documented in this encounter Care Teams Senior Net Engineer Relationship Specialty Start Date End Date Magdalena Acosta MD [address] [place] [address] PCP - General Family Medicine 02/05/23 documented as of this encounter
--- OUTSIDE RECORDS SUMMARY | 2024-07-15 12:32 | XMS_ITS | Encounter Summary ---
Author Organization [facility] Address [facility] Erika lópez[place] [address] Care Team Providers Care Machine Adjuster Leader Case Trim Name Role Phone Deborah Quiroga ANURAG Primary Care Provider [phone] Encounter Details Date Type Department Care Team (Late st Contact Info) Description 11/11/2020 Refill Dermatology at [address] [place] [address] Taylor Malone, ASSISTANT LABORATORY DIRECTOR Social History Tobacco Use Types Packs/Day [...] 11/02/2024 12:00 PM EDT Appointment [place] [address] 11/02/2024 1:00 PM EDT Office Visit [place] [address] Magdalena Peralta MD [facility] [place] [address] 03/01/2025 4:15 PM EDT Office Visit Dermatology at [address] [place] [address] Marek Bonilla MD [address], [place] [address] documented as of this encounter Visit Diagnoses Not on filedocumented in this encounter Care Teams Machine Adjuster Leader Case Trim Relationship Specialty Start Date End Date Deborah Quiroga APRN PCP - General Family Medicine 03/24/16 02/04/23 documented as of this encounter
--- OUTSIDE RECORDS SUMMARY | 2024-07-15 12:32 | XMS_ITS | Encounter Summary ---
Author Organization [facility] Address [facility] [place] [address] Care Team Providers Care Fitness Worker Name Role Phone Deborah Quiroga APRN Primary Care Provider [phone] Reason for Visit * Consultation (Routine) - Closed Specialty Diagnoses / Procedures Referred By Contkrystle t Referred To Contact Rheumatology Diagnoses Positive FRANCISCO (antinuclear antibody) Arthralgia, unspecified joint Sandy Wu APRN [address] [place] [address] [facility] Rheumatology [address] [place] [address] Referral ID Status Reason Start Date Expiration Date V isits Requested Visits Authorized [id number] Closed Consult, Test & Treat PCP Updated and/or Approved 01/01/2022 01/01/2023 6 6 Encounter Details Date Type Department Care Team (Latest Contact Info) Description 01/20/2022 10:00 AM EDT Office [place] [address] Raymond Loredo MD [facility] [place] [address] Rosacea; Raynaud's phenomenon without gangrene; [...] this encounter Patient Instructions * Patient Instructions* Ryamond Loredo MD - 01/20/2022 10:48 AM EDT [...] radiocarpal or ulnocarpal joints. 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 SJC/TJC 0/0. Hips: Full motion, [...] can be done locally or here at [facility] that the current time is not particularly interested it seems Raymond Loredo MD documented in this encounter Plan of Treatment Upcoming Encounters Date Type Department Care Team (Late st Contact Info) Description 11/02/2024 12:00 PM EDT Appointment [place] [address] 11/02/2024 1:00 PM EDT Office [place] [address] Magdalena Peralta MD [facility] [place] [address] 03/01/2025 4:15 PM EDT Office Visit Dermatology at [address] [place] [address] Marek Bonilla MD [address], [place] [address] Scheduled Referrals Name Type Priority Associated Diagnoses [...] syndrome documented in this encounter Care Teams Fitness Worker Relationship Specialty Start Date End Date Deborah Quiroga, PHARMACY INNOVATION ASSISTANT PCP - General Family Medicine 03/24/16 02/04/23 documented as of this encounter
--- OUTSIDE RECORDS SUMMARY | 2024-07-15 12:32 | XMS_ITS | Encounter Summary ---
Author Organization [facility] [place] [address] Care Team Providers Care Fisher Troll Line Name Role Phone Ashley Quirogan Cornelius ANURAG Primary Care Provider [phone] Encounter Details Date Type Department Care Team (Late st Contact Info) Description 11/02/2022 Orders [place] [address] Emily Lyons PA [facility] [place] [address] Aortic valve stenosis, etiology of cardiac valve [...] 11/02/2024 12:00 PM EDT Appointment [place] [address] 11/02/2024 1:00 PM EDT Office [place] [address] Magdalena Peralta MD [facility] RHEUMATOLOGY DEPT [place], [place] [address] 03/01/2025 4:15 PM EDT Office Visit Dermatology at [place] [address] [place] [address] Marek Bonilla MD [address], [place] [address] documented as of this encounter Visit Diagnoses Diagnosis Aortic valve stenosis, etiology of cardiac valve disease unspecified documented in this encounter Care Teams Fisher Troll Line Relationship Specialty Start Date End Date Deborah Quiroga APRN PCP - General Family Medicine 03/24/16 02/04/23 documented as of this encounter
--- OUTSIDE RECORDS SUMMARY | 2024-07-15 12:32 | XMS_ITS | Encounter Summary ---
Author Organization [facility] [place] [address] Care Team Providers Care Airport Operations Crew Member Name Role Phone Ashley Quirogan Cornelius ANURAG Primary Care Provider [phone] Encounter Details Date Type Department Care Team (Late st Contact Info) Description 02/07/2020 Telephone [place] [address] Ellen Rios RN Social History [...] 02/07/2020 12:59 PM EDT Message received from church secretary: Injection/Infusion Referral Services to be provided for pt are: CBC only at [facility]- Pt will go by 02/27 Orders faxed to [phone]). Spoke with pt. She will call [facility] directly to schedule a time that works for her. documented in this encounter Plan of Treatment Upcoming Encounters Date Type Department Care Team (Late Contact Info) Description 11/02/2024 12:00 PM EDT [place]oint[place] [address] 11/02/2024 1:00 PM EDT [place] [address] Magdalena Peralta MD [facility] [place] [address] 03/01/2025 4:15 PM EDT Office Visit Dermatology at [place] [address] [facility] [address] Marek Bonilla MD [address], [place] [address] documented as of this encounter Visit Diagnoses Not on filedocumented in this encounter Care Teams Airport Operations Crew Member Relationship Specialty Start Date End Date Deborah Quiroga APRN PCP - General Family Medicine 03/24/16 02/04/23 documented as of this encounter
--- OUTSIDE RECORDS SUMMARY | 2024-07-15 12:32 | XMS_ITS | Encounter Summary ---
Author Organization [facility] Address [facility] [place] [address] Care Team Providers Care Outsole Rounder Name Role Phone Deborah Quiroga APRN Primary Care Provider [phone] Encounter Details Date Type Department Care Team (Late st Contact Info) Description 03/01/2020 11:30 AM EDT Office Visit Hematology [place] [address] Patrick Borjas MD [facility] [address] [place] [address] Neutropenia, unspecified type Social History Tobacco Use [...] TOUCH PREP, CLOT SECTION, CORE ??BIOPSY); [OSR# [id number], COLLECTED 06/23/2016, 19 SLIDES]: ?1. 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 Extremities: No edema. Labs: Hgb= 12.4 Dazs=943 ANC= 2.5 Imaging As above - reviewed [...] 11/02/2024 12:00 PM EDT Appointment [place] [address] 11/02/2024 1:00 PM EDT Office Visit Rheumatology at [place] [phone] Magdalena Peralta MD [facility] [place] [address] 03/01/2025 4:15 PM EDT Office Visit Dermatology at [address] [place] [address] Marek Bonilla MD [address] [facility] DERMATOLOGY [place], [place] [address] documented as of this encounter Visit Diagnoses Diagnosis Neutropenia, unspecified type documented in this encounter Care Teams Outsole Rounder Relationship Specialty Start Date End Date Deborah Quiroga APRN PCP - General Family Medicine 03/24/16 02/04/23 documented as of this encounter
--- OUTSIDE RECORDS SUMMARY | 2024-07-15 12:32 | XMS_ITS | Encounter Summary ---
Author Organization [facility] [place] [address] Care Team Providers Care Dry Cans Back Tender Name Role Phone Magdalena Acosta MD Primary Care Provider [phone] Reason for Referral * Consultation (Routine) - Closed Specialty Diagnoses / Procedures Referred By Contac t Referred To Contact Rheumatology Diagnoses Weakness Kyra Haas MD [facility] [address] [place] [address] [facility] Rheumatology [address] [place] [phone] Referral ID Status Reason Start Date Expiration Date V isits Requested Visits Authorized [id number] Closed Consult, Test & Treat PCP Updated and/or Approved 02/25/2023 02/25/2024 6 6 Encounter Details Date Type Department Care Team (Late st Contact Info) Description 02/25/2023 Transcribe Orders eDH Incoming Referrals [phone] Magdalena Acosta MD [address] [place] [address] Weakness Social History Tobacco Use [...] 11/02/2024 12:00 PM EDT Appointment [place] [address] 11/02/2024 1:00 PM EDT Office [place] [address] Magdalena ePralta MD [facility] [place] [address] 03/01/2025 4:15 PM EDT Office Visit Dermatology at [place] [address] [place] [address] Marek Bonilla MD [address], [place] [address] Scheduled Referrals Name Type Priority Associated Diagnoses Order Schedule Referral to Rheumatology Outpatient Referral Routine Weakness Ordered: 02/25/2023 documented as of this encounter Visit Diagnoses Diagnosis Weakness Other malaise and fatigue documented in this encounter Care Teams Dry Cans Back Tender Relationship Specialty Start Date End Date Magdalena Acosta MD [address] [place] [address] PCP - General Family Medicine 02/05/23 documented as of this encounter
--- OUTSIDE RECORDS SUMMARY | 2024-07-15 12:32 | XMS_ITS | Encounter Summary ---
Author Organization [facility] [place] [address] Care Team Providers Care Foamite Mixer Name Role Phone Ashley Quirogan [place] ANURAG Primary Care Provider [phone] Reason for Visit * Reason Comments Skin Check Encounter Details Date Type Department Care Team (Late st Contact Info) Description 11/11/2020 10:45 AM EDT Office Visit Dermatology at [address] [place] [address] Marek Bonilla MD [address] [facility] DERMATOLOGY [place], [place] [address] Rosacea; Acrochordon Social History Tobacco Use Types [...] Discussed the possibility of getting this through [facility] or from the [facility] pharmacy if necessary. She has not [...] 12:00 PM EDT Appointment [place] [address] 11/02/2024 1:00 PM EDT Office Visit [place] [address] Magdalena Peralta MD [facility] [place] [address] 03/01/2025 4:15 PM EDT Office Visit Dermatology at [place] [address] [facility] [place] [address] Marek Bonilla MD [address] [facility], [place] [address] documented as of this encounter Visit Diagnoses Diagnosis Rosacea Acrochordon Unspecified hypertrophic and atrophic condition of skin documented in this encounter Care Teams Foamite Mixer Relationship Specialty Start Date End Date Deborah Quiroga APRN PCP - General Family Medicine 03/24/16 02/04/23 documented as of this encounter
--- OUTSIDE RECORDS SUMMARY | 2024-07-15 12:32 | XMS_ITS | Encounter Summary ---
Author Organization [facility] [place] [address] Care Team Providers Care Financial Analysis Advisor Name Role Phone Ashley Quirogazac Shields APRN Primary Care Provider [phone] Encounter Details Date Type Department Care Team [...] 11/02/2024 12:00 PM EDT Appoint[place] [address] 11/02/2024 1:00 PM EDT Office [place] [address] Magdalena Peralta MD [facility] [place] [address] 03/01/2025 4:15 PM EDT Office Visit Dermatology at [address] [place] [address] Marek Bonilla MD [address] [facility], [place] [address] documented as of this encounter Visit Diagnoses Not on filedocumented in this encounter Care Teams Financial Analysis Advisor Relationship Specialty Start Date End Date Deborah Quiroga APRN PCP - General Family Medicine 03/24/16 02/04/23 documented as of this encounter
--- OUTSIDE RECORDS SUMMARY | 2024-07-15 12:32 | XMS_ITS | Encounter Summary ---
[place] [address] Care Team Providers Care Adobe Architect Name Role Phone Ashley Quirogan Cornelius ANURAG Primary Care Provider [phone] Reason for Visit * Reason Comments Acrochordon Rosacea Encounter Details Date Type Department Care Team (Late st Contact Info) Description 12/05/2020 3:00 PM EDT Office Visit Dermatology at [address] [address] Marek Bonilla MD [address] [facility], [place] [address] Inflamed acrochordon Social History Tobacco Use Types [...] 11/02/2024 12:00 PM EDT Appointment [place] [address] 11/02/2024 1:00 PM EDT Office [place] [address] Magdalena Peralta MD [facility] [place] [address] 03/01/2025 4:15 PM EDT Office Visit Dermatology at [place] [address] [place] [address] Marek Bonilla MD [address] [facility], [place] [address] documented as of this encounter Visit Diagnoses Diagnosis Inflamed acrochordon Unspecified hypertrophic and atrophic condition of skin documented in this encounter Care Teams Adobe Architect Relationship Specialty Start Date End Date Deborah Quiroga APRN PCP - General Family Medicine 03/24/16 02/04/23 documented as of this encounter
--- OUTSIDE RECORDS SUMMARY | 2024-07-15 12:32 | XMS_ITS | Encounter Summary ---
Author Organization [facility] [place] [address] Care Team Providers Care Underwriting Manager Name Role Phone Deborah Quiroga APRN Primary Care Provider [phone] Encounter Details Date Type Department Care Team (Late st Contact Info) Description 06/05/2021 Interpretation Only [address] [address] Deborah Quiroga APRN [address] [phone] Social History Tobacco Use Types Packs/Day Years [...] 11/02/2024 12:00 PM EDT Appointment [place] [address] 11/02/2024 1:00 PM EDT Office [place] [address] Magdalena Peralta MD [facility] [place] [address] 03/01/2025 4:15 PM EDT Office Visit Dermatology at [place] [address] [place] [address] Marek Bonilla MD [address] [facility] [address], [place] [address] documented as of this encounter Procedures Procedure Name Priority Date/Time Associated Diagnosis Comments MAMMO SCREENING CAD AND ERLIN BILATERAL Routine 06/05/2021 11:42 AM EDT documented in this encounter Results * Mammo Screening Cad and Erlin Bilateral (06/05/2021 11:42 AM EDT) PT CLASS O DH RAD ADMITDTTM DH RAD PT DH RAD MD INFO [phone]^EVERET T^DEBORAH^E DH RAD EXAM DESC MADDSCTO^BREAST SCREEN [...] living that requested your imaging first. ? Electronically signed by: Rocael Villatoro MD, [facility] ([phone]), at 06/05/2021 1:27 PM Narrative 06/05/2021 1:27 [...] assisted living that requested your imaging first. Electronically signed by: Rocael Villatoro MD, [facility]([phone]), at 06/05/2021 1:27 PM Deborah Quiroga APRN IMG MAMMO ORDERABLE S documented in this encounter Visit Diagnoses Not on filedocumented in this encounter Care Teams Underwriting Manager Relationship Specialty Start Date End Date Deborah Quiroga APRN PCP - General Family Medicine 03/24/16 02/04/23 documented as of this encounter
--- OUTSIDE RECORDS SUMMARY | 2024-07-15 12:32 | XMS_ITS | Encounter Summary ---
[place] [address] Care Team Providers Care Loans Officer Name Role Phone Junaid Deborah Shields APRN Primary Care Provider [phone] Reason for Visit * Reason Comments Follow-up Encounter Details Date Type Department Care Team (Late st Contact Info) Description 01/10/2021 4:30 PM EDT Office Visit Dermatology at [place] [address] [facility] [place] [address] Marek Bonilla MD [address] [facility], [address] DERMATOLOGY [place], [place] [phone] Rosacea Social History Tobacco Use Types Packs/Day [...] cutaneous and ocular 2. Previously told by academic support specialist that she had corneal tears from [...] 3 refills. Will call this in her [facility] pharmacy in [place] 3. Continue metronidazole 0.75% gel applying once [...] 12:00 PM EDT Appointment [place] [address] 11/02/2024 1:00 PM EDT Office [place] [address] Magdalena Peralta MD [facility] [place] [address] 03/01/2025 4:15 PM EDT Office Visit Dermatology at [place] [address] [place] [address] Marek Bonilla MD [address] [facility] [address], [address] [place] [address] documented as of this encounter Visit Diagnoses Diagnosis Rosacea documented in this encounter Care Teams Loans Officer Relationship Specialty Start Date End Date Deborah Quiroga APRN PCP - General Family Medicine 03/24/16 02/04/23 documented as of this encounter
--- OUTSIDE RECORDS SUMMARY | 2024-07-15 12:32 | XMS_ITS | Encounter Summary ---
Author Organization [facility] [place] [address] Care Team Providers Care Marine Machinist Name Role Phone Magdalena Acosta MD Primary Care Provider [phone] Encounter Details Date Type Department Care Team (Latest Contact Info) Description 02/05/2023 9:33 PM EDT - 02/05/2023 11:59 PM EDT Hospital [place] [phone] Discharge Disposition: Home Social History Tobacco Use [...] 11/02/2024 12:00 PM EDT Appointment [place] [address] 11/02/2024 1:00 PM EDT Office [place] [address] Magdalena Peralta MD [facility] [address] [place] [address] 03/01/2025 4:15 PM EDT Office Visit Dermatology at [place] [address] [facility] [place] [address] Marek Bonilla MD [address] [facility] [address], [place] [address] documented as of this encounter Procedures Procedure Name Priority Date/Time Associated Diagnosis Comments SURGICAL PATHOLOGY REPORT Routine 02/05/2023 3:00 PM EDT documented in this encounter Results * Surgical Pathology Report (02/05/2023 3:00 PM EDT) Final Diagnosis [id number] ? Location: OPW The signing pathologist has [...] [facility] Dept. of Pathology, [place] [address] Curriculum And Assessment Director: Kunal Rubi MD, AP, ??CLIA Certificate: [id number] DISCUSSION If there is an obvious clinical [...] labeled A1. ??sns 02/16/2023 8:04 AM EDT [facility] SPECIMEN FROM SKIN / Unknown 02/05/2023 3:00 PM EDT 02/05/2023 3:00 PM EDT Marek Bonilla MD PATHOLOGY/CYTOLOGY O RDERABLES [facility] [place] [address] [facility] [place] [address] documented in this encounter Visit Diagnoses Not on filedocumented in this encounter Care Teams Marine Machinist Relationship Specialty Start Date End Date Magdalena Acosta MD [address] [place] [address] PCP - General Family Medicine 02/05/23 documented as of this encounter
--- OUTSIDE RECORDS SUMMARY | 2024-07-15 12:32 | XMS_ITS | Encounter Summary ---
Author Organization [facility] [place] [address] Care Team Providers Care Mold Dumper Name Role Phone Ashley Quirogazac Shields APRN Primary Care Provider [phone] Encounter Details Date Type Department Care Team [...] 11/02/2024 12:00 PM EDT [place] [address] 11/02/2024 1:00 PM EDT [place] [address] Magdalena Peralta MD [facility] [place] [address] 03/01/2025 4:15 PM EDT Office Visit Dermatology at [address] [place] [address] Marek Bonilla MD [address] [facility], [place] [address] documented as of this encounter Visit Diagnoses Not on filedocumented in this encounter Care Teams Mold Dumper Relationship Specialty Start Date End Date Deborah Quiroga APRN PCP - General Family Medicine 03/24/16 02/04/23 documented as of this encounter
--- OUTSIDE RECORDS SUMMARY | 2024-07-15 12:32 | XMS_ITS | Encounter Summary ---
Author Organization [facility] [place] [address] Care Team Providers Care Personalized Living Manager Nurse Name Role Phone Junaid Deborah Shields APRN Primary Care Provider [phone] Encounter Details Date Type Department Care Team (Latest Contact Info) Description 11/09/2022 10:37 AM EDT - 11/09/2022 4:53 PM EDT Hospital En[place] [address] Nitesh Escobedo MD [facility] [place] [address] Aortic valve stenosis, etiology of cardiac valve [...] please contact your inpatient physician through the [facility] Automatic Mounter . Issues afterhours and on weekends will be handled by the Hospitalist staff on-call. * Attachments The following attachments cannot be sent through Care Everywhere. * Coronary Angiogram: Post-op (Bahamian) * Right Heart Catheterization: Pulmonary Artery Catheterization: Post-op (Bahamian) documented in this encounter Medications at Time [...] MD - 11/09/2022 11:20 AM EDT . [facility] Interventional Cardiology Adult Pre-Procedure H&P Update: Cardiac Catheterization Purnima Thacker [id number] 1955 Chief Complaint: BONILLA HPI: Purnima Thacker [...] Marrero MD Interventional Cardiology 11/09/22 11:43 AM [facility] Pager: [phone] documented in this encounter Plan of Treatment Upcoming Encounters Date Type Department Care Team (Late st Contact Info) Description 11/02/2024 12:00 PM EDT Appointment [place] [address] 11/02/2024 1:00 PM EDT Office [place] [address] Magdalena Peralta MD [facility] [place] [address] 03/01/2025 4:15 PM EDT Office Visit Dermatology at [place] [address] [place] [address] Marek Bonilla MD [address] [facility] [address] [facility] [address] [address], [place] [address] documented as of this encounter Procedures Procedure Name Priority Date/Time Associated Diagnosis Comments CARDIAC CATHETERIZATION Routine 11/10/19 1:05 PM EDT Aortic valve stenosis, etiology of cardiac valve disease unspecified Cath Plmt Left Heart Cath & Arts W/Inj & Angio Img S&I ([id number]) 11/09/2022 11:51 AM EDT Aortic valve stenosis, etiology of cardiac valve disease unspecified EKG 12-LEAD Routine 11/09/2022 11:17 AM EDT Aortic valve stenosis, etiology of cardiac valve disease unspecified documented in this encounter Results * CARDIAC CATHETERIZATION (11/09/2022 1:05 PM EDT) Anatomical Region Laterality Modality Other Narrative 11/09/2022 2:01 PM EDT ?[facility] ? Cardiac Catheterization/Intervention Report ? Patient Name: Kirstie, Purnima M. ? Procedure Date: 11/09/2022 ? A #: [id number] ? Primary Physician: Nitesh Escobedo ? Case #: [id number] ? File Name: [id number] ? Catheterization Order Number: [id number] ? [facility] ? Final Report [place], [place] ? Patient Name: ? Purnima M. Kirstie ? ID#: ?[id number] ? : ?1955 ? Procedure Date: ? November 09, 2022 ? Case #: ? [id number] ? Room: ? 1 ? Case Physician: [...] as ASA Class III. The [facility] clinical frailty scale ?is 4: Vulnerable. [...] (Bezet) 457 ms MUSE SYSTEM Calculated P [place] 44 degrees MUSE SYSTEM Calculated R [place] 33 degrees MUSE SYSTEM Calculated T [place] 30 degrees MUSE SYSTEM INTERPRETATION Sinus rhythm Occasional Premature ventricular complexes Otherwise normal ECG When compared with ECG of 21-SEP-2016 12:26, Premature ventricular complexes are now Present [place] interval has decreased Nonspecific T wave abnormality has replaced inverted T waves in Inferior leads I personally reviewed the tracing and edited the fellows interpretation Confirmed by fellow MD Anitha, Carissa ([id number]) on 11/09/2022 6:17:28 PM Confirmed by Elsa Linares MD ([id number]) on 11/10/2022 3:47:14 PM MUSE SYSTEM 11/09/2022 11:1 7 AM EDT 11/10/2022 3:47 PM EDT Nitesh Escobedo MD ECG ORDERABLES [employer] documented in this encounter Visit Diagnoses [...] MD) documented in this encounter Care Teams Personalized Living Manager Nurse Relationship Specialty Start Date End Date Junaid Deborah Shields, PROGRAM COORDINATOR EXECUTIVE EDUCATION PCP - General Family Medicine 03/24/16 02/04/23 documented as of this encounter
--- OUTSIDE RECORDS SUMMARY | 2024-07-15 12:32 | XMS_ITS | Encounter Summary ---
[place] [address] Care Team Providers Care Rim Buster Name Role Phone Ashley Quirogan Cornelius ANURAG Primary Care Provider [phone] Reason for Visit * Reason Onset Date Comments Medical Care Coordination 07/27/2017 Encounter Details Date Type Department Care Team (Late st Contact Info) Description 07/27/2017 Telephone H[place] [address] Alexandrea Greenwood RN Medical Care Coordination Social [...] 07/27/2017 12:25 PM EST Message received from assistant secretary: Injection/Infusion Referral Call placed to [facility] @ [phone] Spoke w/ SENIOR BUSINESS ANALYST Services to be provided for pt are: CBC/CMP DONE Q6 MONTHS X2 STARTING NOVEMBER 2017 TECH confirmed they would provide services to pt - I CALLED PT, LM. Pt orders faxed to [phone] documented in this encounter Plan of Treatment Upcoming Encounters Date Type Department Care Team (Late st Contact Info) Description 11/02/2024 12:00 PM EDT [place]oint[place] [address] 11/02/2024 1:00 PM EDT Office [place] [address] Magdalena Peralta MD [facility] [place] [address] 03/01/2025 4:15 PM EDT Office Visit Dermatology at [place] [address] [facility] [place] [address] Marek Bonilla MD [address], [place] [address] documented as of this encounter Visit Diagnoses Not on filedocumented in this encounter Care Teams Rim Buster Relationship Specialty Start Date End Date Deborah Quiroga APRN PCP - General Family Medicine 03/24/16 02/04/23 documented as of this encounter
--- OUTSIDE RECORDS SUMMARY | 2024-07-15 12:32 | XMS_ITS | Encounter Summary ---
Author Organization [facility] Address [facility] [place] [address] Care Team Providers Care Clam Shucker Name Role Phone Deborah Quiroga APRN Primary Care Provider [phone] Encounter Details Date Type Department Care Team (Latest Contact Info) Description 07/03/2022 1:36 PM EST - 07/03/2022 11:59 PM EST Hospital Encounter Hematology [place] [address] Discharge Disposition: Home Social History Tobacco Use [...] 11/02/2024 12:00 PM EDT Appointment [place] [address] 11/02/2024 1:00 PM EDT Office [place] [address] Magdalena Peralta MD [facility] [place] [address] 03/01/2025 4:15 PM EDT Office Visit Dermatology at [place] [address] [facility] [place] [address] Marek Bonilla MD [address], [place] [address] DERMATOLOGY [place], [place] [address] documented as of this encounter Procedures Procedure [...] [facility]/ZIP Co de Phone Number [facility] [place] [address] * Vitamin B12 (07/03/2022 1:59 PM EST) Vitamin B12 449 232 - 1,245 pg/mL [facility] Blood Venous Draw / Unknown 07/03/2022 1:59 PM EST 07/03/2022 2:13 PM EST Narrative Resulting Agency Comment Spec In Lab Markel Borjas MD CHEMISTRY ORDERABL ES Performing Organization Address City/[facility]/ZIP Co de Phone Number [facility] [place] [address] documented in this encounter Visit Diagnoses Not on filedocumented in this encounter Care Teams Clam Shucker Relationship Specialty Start Date End Date Deborah Quiroga APRN PCP - General Family Medicine 03/24/16 02/04/23 documented as of this encounter
--- OUTSIDE RECORDS SUMMARY | 2024-07-15 12:32 | XMS_ITS | Encounter Summary ---
Author Organization [facility] [place] [address] Care Team Providers Care Cover Making Machine Operator Name Role Phone Deborah Quiroga APRN Primary Care Provider Encounter Details Date Type Department Care Team (Late st Contact Info) Description 11/09/2022 11:30 AM EDT - 11/09/2022 12:30 PM EDT [place] [address] Nitesh Escobedo MD [facility] [place] [address] CARDIAC CATHETERIZATION Social History Tobacco Use Types [...] PM Marek Bonilla MD [facility] New Medications to be Picked Up None For questions regarding this document or issues relating to this hospitalization on the Medical Service, please contact your inpatient physician through the [facility] Receptionist Clerk . Issues afterhours and on weekends will be handled by the Hospitalist staff on-call. * Attachments The following attachments cannot be sent through Care Everywhere. * Coronary Angiogram: Post-op (Guamanian) * Right Heart Catheterization: Pulmonary Artery Catheterization: Post-op (Guamanian) documented in this encounter Medications at Time of Discharge Medication Sig Dispensed Refills Start Date End Date nystatin (MYCOSTATIN) 100,000 unit/gram Powder Apply topically 2 times daily as needed. 10/22/2022 [employer] Verio test strips Strip USE DAILY 01/03/2022 [employer] Delica Plus Lancet 33 gauge Misc [...] Pre-Procedure H&P Update: Cardiac Catheterization Purnima Thacker [id number] 1955 Chief Complaint: BONILLA HPI: Purnima Thacker [...] AM [facility] Pager: [phone] documented in this encounter Plan of Treatment Upcoming Encounters Date Type Department Care Team (Late st Contact Info) Description 11/02/2024 12:00 PM EDT Appointment [place] [address] 11/02/2024 1:00 PM EDT Office Visit [place] [address] Magdalena Peralta MD [facility] [place] [address] 03/01/2025 4:15 PM EDT Office Visit Dermatology at [place] [address] [place] [address] Marek Bonilla MD [address], [place] [address] documented as of this encounter Procedures Procedure Name Priority Date/Time Associated Diagnosis Comments CARDIAC CATHETERIZATION Routine 11/10/19 1:05 PM EDT Aortic valve stenosis, etiology of cardiac valve disease unspecified Cath Plmt Left Heart Cath & Arts W/Inj & Angio Img S&I ([id number]) 11/09/2022 11:51 AM EDT Aortic valve stenosis, etiology of cardiac valve disease unspecified EKG 12-LEAD Routine 11/09/2022 11:17 AM EDT Aortic valve stenosis, etiology of cardiac valve disease unspecified documented in this encounter Results * CARDIAC CATHETERIZATION (11/09/2022 1:05 PM EDT) Anatomical Region Laterality Modality Other Narrative 11/09/2022 2:01 PM EDT ?[facility] ? Cardiac Catheterization/Intervention Report ? Patient Name: Kirstie, Purnima M. ? Procedure Date: 11/09/2022 ? A #: [id number] ? Primary Physician: Nitesh Escobedo ? Case #: [id number] ? File Name: [id number] ? Catheterization Order Number: [id number] ? [facility] ? Final Report [place], [place] ? Patient Name: ? Purnima M. Kirstie ? ID#: ?[id number] ? : ?1955 ? Procedure Date: ? November 09, 2022 ? Case #: ? [id number] ? Room: ? 1 ? Case Physician: [...] (Bezet) 457 ms MUSE SYSTEM Calculated P [place] 44 degrees MUSE SYSTEM Calculated R [place] 33 degrees MUSE SYSTEM Calculated T [place] 30 degrees MUSE SYSTEM INTERPRETATION Sinus rhythm Occasional Premature ventricular complexes Otherwise normal ECG When compared with ECG of 21-SEP-2016 12:26, Premature ventricular complexes are now Present [place] interval has decreased Nonspecific T wave abnormality has replaced inverted T waves in Inferior leads I personally reviewed the tracing and edited the fellows interpretation Confirmed by fellow MD Anitha, Carissa ([id number]) on 11/09/2022 6:17:28 PM Confirmed by Elsa [...] MD) documented in this encounter Care Teams Cover Making Machine Operator Relationship Specialty Start Date End Date Deborah Quiroga, ANURAG PCP - General Family Medicine 03/24/16 02/04/23 documented as of this encounter
--- OUTSIDE RECORDS SUMMARY | 2024-07-15 12:32 | XMS_ITS | Encounter Summary ---
Author Organization [facility] [place] [address] Care Team Providers Care Music Industry Internship Name Role Phone Deborah Quiroga APRN Primary Care Provider [phone] Encounter Details Date Type Department Care Team (Late st Contact Info) Description 06/17/2022 Ancillary Procedure Radiology Library at [facility] [place] [address] Deborah Quiroga APRN [address] [place] [address] Social History Tobacco Use Types Packs/Day [...] Office [place] [address] Magdalena Peralta MD [facility] RHEUMATOLOGY DEPT [place], [place] [address] 03/01/2025 4:15 PM EDT Office Visit Dermatology at [place] [address] [place] [address] Marek Bonilla MD [address], [place] [address] documented as of this encounter Procedures Procedure Name Priority Date/Time Associated Diagnosis Comments FILM LIBRARY STORAGE ONLY MR SPINE Routine 06/17/2022 12:00 AM EST documented in this encounter Results * Film Library- Storage Only MR Spine (06/17/2022 12:00 AM EST) Narrative [facility] - 06/18/2022 11:00 AM EST This exam is auto-finalizing. It's purpose is for storage only. Deborah Quiroga APRN IMG FILM LIBRARY OR DERABLES Performing Organization Address City/State/[facility] de Phone Number [place], [place] documented in this encounter Visit Diagnoses Not on filedocumented in this encounter Care Teams Music Industry Internship Relationship Specialty Start Date End Date Deborah Quiroga APRN PCP - General Family Medicine 03/24/16 02/04/23 documented as of this encounter
--- OUTSIDE RECORDS SUMMARY | 2024-07-15 12:33 | XMS_ITS | Encounter Summary ---
Author Organization [facility] Address [facility] [place] [address] Care Team Providers Care Awning Hanger Name Role Phone Deborah Quiroga ANURAG Primary Care Provider [phone] Encounter Details Date Type Department Care Team (Late st Contact Info) Description 06/18/2017 External Results Hematology [place] [address] Alexandrea Greenwood RN Neutropenia, unspecified [...] 11/02/2024 12:00 PM EDT Appointment [place] [address] 11/02/2024 1:00 PM EDT Office [place] [address] Magdalena Peralta MD [facility] [place] [address] 03/01/2025 4:15 PM EDT Office Visit Dermatology at [address] [address] Marek Bonilla MD [address], [place] [address] documented as of this encounter Procedures Procedure [...] type documented in this encounter Care Teams Awning Hanger Relationship Specialty Start Date End Date Deborah Quiroga, HAZARDOUS MATERIALS WASTE TECHNICIAN PCP - General Family Medicine 03/24/16 02/04/23 documented as of this encounter
--- OUTSIDE RECORDS SUMMARY | 2024-07-15 12:33 | XMS_ITS | Encounter Summary ---
Author [place] [address] Care Team Providers Care Dock Operator Name Role Phone Ashley Quirogazac Shields APRN Primary Care Provider [phone] Reason for Visit * Reason Onset Date Comments Results 12/03/2016 Encounter Details Date Type Department Care Team (Late st Contact Info) Description 12/03/2016 Telephone Hematology [place] [address] Yudith Valentine, RN Results Social [...] EDT RN received call from Maddy at [facility] reporting critical WBC at 1.61, and [...] EDT Office [place] [address] Magdalena Peralta MD [facility] [place] [address] 03/01/2025 4:15 PM EDT Office Visit Dermatology at [place] [address] [facility] [place] [id number] Marek Bonilla MD [address] [facility] [place] [place] [address] documented as of this encounter Visit Diagnoses Not on filedocumented in this encounter Care Teams Dock Operator Relationship Specialty Start Date End Date Deborah Quiroga APRN PCP - General Family Medicine 03/24/16 02/04/23 documented as of this encounter
--- OUTSIDE RECORDS SUMMARY | 2024-07-15 12:33 | XMS_ITS | Encounter Summary ---
[place] [address] Care Team Providers Care Secondary History Teacher Name Role Phone Junaid Deborah Shields APRN Primary Care Provider [phone] Reason for Visit * Auth/Cert Specialty Diagnoses / Procedures Referred By Crispin t Referred To Contact Diagnoses Aortic stenosis Procedures PRO REPLACE AORT VALV, PROSTH VALV @REPLACE AORTIC VALVE, OPEN, W\CPB, W\PROSTHETIC VALVE (WRVU 41.32) Referral ID Status Reason Start Date Expiration Date Visits Re quested Visits Authorized [id number] 1 1 Encounter Details Date Type Department Care Team (Late st Contact Info) Description 09/21/2016 7:30 AM EST - 09/21/2016 12:04 PM EST Surgery [place] [address] Alirio Esparza MD @REPLACE AORTIC VALVE, OPEN, [...] Patient Age: 61 y.o. Birthdate: 1955 Language: Azerbaijani Race: White Ethnicity: Not nor Admit Date: 09/21/2016 Discharge Date: 09/25/2016 Attending Physician: Alirio Esparza MD Follow-up Recommendations for Providers: Please continue routine management of cardiovascular risk factors including blood pressure, lipids,glucose, etc. Please note any changes to medications. Patient to follow-up with PCP, Deborah Quiroga APRN, in 1-2 weeks. Patient to follow-up with Sheet Metal Layout Worker, Dr. Antelmo Burrell, in two weeks. Patient to follow-up with Cardiac Surgery, Dr. Alirio Esparza, to be scheduled for before 10/19/2016, with CXR, EKG, and Echo. Inpatient Provider Contact Information: [facility] [place] of [place]iac [place] [facility] [place] [address] FAX [phone] Discharge Diagnoses (Hospital Problems) Primary Diagnoses: Secondary [...] by Alirio Esparza MD at [facility] MAIN OR ??? Pro aortoplas for supravalv sten N/A 09/21/2016 @AORTOPLASTY FOR SUPRAVALVULAR STENOSIS (WRVU 29.33) performed by Alirio Esparza MD at [facility] MAIN OR Prior To Admission Medications [...] Course: Purnima Thacker was admitted to [facility] on 09/21/2016 via the Same Day [...] Alirio Esparza and/or the Cardiac Surgery Physician User Interface Engineer Team may be reached at . Antibiotic [...] Dr. Alirio Jones. You may use a [place] Track or treadmill but avoid any pulling [...] friends, go to a movie, go to mu-ism, etc. Heavy activities: No hunting, skiing, jogging, [...] to see your primary care physician, Deborah Quiorga APRN, in one-to-two weeks or as soon [...] AM Markel Borjas MD [facility] [phone] Future Orders Complete By Expires Echocardiogram Transthoracic([facility]) [WSE173 Custom] 10/18/2016 (Approximate) 09/18/2017 Process Instructions: If the Echocardiogram is to be PERFORMED in a DH location other than [place]--STOP and order [id number], Echocardiogram South/External. Scheduling Instructions: Questions: Is a Bubble Study requested?: No Does the patient have Congenital Heart Disease?: No Does patient require sedation?: None GA rationale: Should this service be billed to the research sponsor?: EKG 12 Lead [EKG1 Custom] 10/18/2016 (Approximate) 09/25/2017 Process Instructions: Scheduling Instructions: Questions: Which DH location will this be performed?: [place] Is a rhythm strip needed?: No If EKG Reason is Pre-op Evaluation, indicate diagnosis for surgery.: Should this service be billed to the research sponsor?: XR Chest PA & Lateral (Generic) [[id number] Custom] 10/18/2016 (Approximate) 09/25/2017 Process Instructions: Scheduling Instructions: Questions: Where will study be performed?: [facility]- Radiology Portable exam?: No Reason for exam and clinical history: s/p AVReplacement, patch annuloplasty 1 month f/u Other pertinent information: Stat read required?: Date of injury if applicable: Requested Time: Referral to Cardiac Rehab [UEW378 Custom] As directed Process Instructions: If no progress note charted, please enter Clinical details in comments. Scheduling Instructions: Questions: My question or request is: s/p AVR. Cardiac rehab at [facility] Referral to Home Health - at DISCHARGE [VZN2949 CPT(R)] As directed Process Instructions: Scheduling Instructions: Comments: DOCUMENTATION FOR VNA SERVICES (INCLUDING THOSE PATIENTS WITH MEDICARE COVERAGE REQUIRING HOME VNA SERVICES AND/OR HOSPICE SERVICES) PATIENT'S LOCATION: Purnimakary Gallego[address] [address] (home) No relevant phone numbers on file. [place] Stitcher's Name: self In discussion with the attending physician, it is certified that this patient is under their care and that they, or a Nurse Practitioner, or Physician User Interface Engineer who is working directly with them, hada [...] for services as follows: HOME HEALTH AGENCY: [facility] PHONE: [phone] FAX: [phone] RN orders: Cardiopulmonary assessment, incisional assessment, assess [...] issues please call the Cardiac SurgeryOffice at [phone] FOR MEDICARE ONLY: In discussion with the [...] AFTER 09/30/16 Signed: Crispin Aranda PA-C 09/25/2016 [facility] Section of Cardiac Surgery [facility] [place] [address] FAX [phone] Date: 09/25/2016 CC: ANURAG Alford Caryn E, APRN [address] [place] [address] documented in this encounter Discharge Instructions * [...] Alirio Esparza and/or the Cardiac Surgery Physician User Interface Engineer Team may be reached at . Antibiotic [...] Dr. Alirio Jones. You may use a [place] Track or treadmill but avoid any pulling [...] friends, go to a movie, go to mu-ism, etc. Heavy activities: No hunting, skiing, jogging, [...] PM EST Cardiac Surgery Progress Note: ID: [id number] S/p AVR, patch aortoplasty POD#2. PMH of [...] Gas) No results found for: PHART, PO2ART, DEW4PXO Assessment/Plan: TPW out this am. (+) BM. [...] Signed: Crispin Aranda PA-C 09/24/2016 Team pager: [phone] after 5pm [facility] Section of Cardiac Surgery * Leonor Henson S, ORNAMENTAL BRICK INSTALLER - 09/23/2016 10:48 AM EST Cardiac Surgery Progress Note: ID: [id number] s/p AVR, patch aortoplasty POD#2. PMH of [...] Gas) No results found for: PHART, PO2ART, HCM4PLT Assessment/Plan: s/p AVR, patch aortoplasty POD#2. PMH of Neutropenia, HLD, HTN, Depression, obesity, . Transferred from [facility] yesterday and doing well. Pathway. Will [...] on rounds. Signed: Leonor Henson APRN [facility] Section of Cardiac Surgery Date: 09/23/2016 * Nico Palacios PA - 09/22/2016 9:56 AM EST Cardiac Surgery Progress Note: ID: [id number] s/p AVR, patch aortoplasty POD#1. PMH of [...] NT, ND, soft. Ext: Moves all extremities. [place], well perfused. Incisions: C/D/I Tubes/Lines/Drains: PIV, richi, [...] Surgeon on rounds. Signed: EKATERINA KIM [facility] Section of Cardiac Surgery Date: 09/22/2016 [...] left pleural effusion. T/L/D Al ETT CVL [place] CT Pacing wires ASSESSMENT, MANAGEMENT, and DECISION [...] Outcome (s) achieved Date Met: 09/25/16 09/25/16 4542 Coping/Psychosocial Plan Of Care Reviewed With patient [...] health, home with outpatient services Lalitha Cohen [facility] Pager: [phone] Inpatient Physical Therapy Patient status, treatment interventions, and goals discussed with student. I am in agreement with all details and associated flowsheet rows as documented and was present for all aspects of the patient treatment session. Nery Jaramillo, CANDY Pager [phone] Problem: Acute Rehab Services Goal & Intervention Plan Goal: Bed Mobility Goal Stand Alone Therapy Goal Outcome: Ongoing (Interventions Implemented as Appropriate) 09/22/16 1611 09/25/16 0947 Bed Mobility Goal Bed Mobility Goal, Time to Achieve 4 days -- Bed Mobility Goal, Activity Type scoot/bridge;supine to sit/sit to supine -- Bed Mobility Goal, [place] Level independent -- Bed Mobility Goal, Additional [...] Achieve 4 days -- Gait Training Goal, [place] Level independent -- Gait Training Goal, Distance [...] Lalitha Cohen [facility] Pager: [phone] Inpatient Physical Therapy Patient status, treatment interventions, and goals discussed with student. I am in agreement with all details and associated flowsheet rows as documented and was present for all aspects of the patient treatment session. Nery Jaramillo, CAKE WRAPPER Pager [phone] Problem: Acute Rehab Services Goal & Intervention Plan Goal: Bed Mobility Goal Stand Alone Therapy Goal Outcome: Ongoing (Interventions Implemented as Appropriate) 09/22/16161009/23/161411 Bed Mobility Goal Bed Mobility Goal, Time to Achieve 4 days -- Bed Mobility Goal, Activity Type scoot/bridge;supine to sit/sit to supine -- Bed Mobility Goal, [place] Level independent -- Bed Mobility Goal, Additional [...] Achieve 4 days -- Gait Training Goal, [place] Level independent -- Gait Training Goal, Distance [...] days -- Transfer Training Goal, Activity Type rog-kv-avrzy/ozlyd-vv-gxt;axa-in-qfpac/imfjs-ws-qvy -- Transfer Train Goal, [place] Level independent -- Transfer Training Goal, Additional Goal abides sternal precautions -- Transfer Training Goal, Outcome -- goal met * Consult Note - Jana Crenshaw RN - 09/23/2016 9:41 AM EST [facility] Purnima Thacker was [...] Another Service: (cardiac rehab) NICOLE HERNANDEZ, PT Pager:[phone] Inpatient Physical Therapy Problem: Acute Rehab Services Goal & Intervention Plan Goal: Bed Mobility Goal Stand Alone Therapy Goal Outcome: Ongoing (Interventions Implemented as Appropriate) 09/22/161610 Bed Mobility Goal Bed Mobility Goal, Time to Achieve 4 days Bed Mobility Goal, Activity Type scoot/bridge;supine to sit/sit to supine Bed Mobility Goal, [place] Level independent Bed Mobility Goal, Additional Goal able to abide sternal precautions during transfers Goal: Gait Training Goal Stand Alone Therapy Goal Outcome: Ongoing (Interventions Implemented as Appropriate) 09/22/161610 Gait Training Goal Gait Training Goal, Date Established 09/22/16 Gait Training Goal, Time to Achieve 4 days Gait Training Goal, [place] Level independent Gait Training Goal, Distance to Achieve ascend and descends 2 steps independently Goal: Goal Transfer Training Stand Alone Therapy Goal Outcome: Ongoing (Interventions Implemented as Appropriate) 09/22/161610 Goal Transfer Training Transfer Training Goal, Time to Achieve 4 days Transfer Training Goal, Activity Type ead-gg-gvmcr/fauim-bz-qta;mvc-nt-gzwpz/xbdau-yu-kfj Transfer Train Goal, [place] Level independent Transfer Training Goal, Additional Goal [...] of completing AD's at home, chooses her mzqrsj-ow-xli, Martha Thacker (home) for her DPOAH, 2nd choice in friend, Nitesh Rad, [place], [place] Current Coping/Education/Information Needs: patient sitting up [...] close by, Rashad & Raymond, and her bpayqw-ca-uxd Martha Thacker who she has chosen to be her DPOAH. Also has a friend Nitesh Leroy who lives in [place], [place], also her DPOAH choice. Behavioral Health History: none on file in e[facility] Substance Use/Abuse: none on file in [facility] Other Pertinent/Service Specific Information: none Health/Prescription Coverage: Primary Insurance: [employer] Secondary Insurance: none Prescription Coverage: yes, per patient no issues Preferred Pharmacy: ?? Other: none Primary Care Provider: Deborah Quiroga, ORNAMENTAL BRICK INSTALLER [phone] Patient/Caregiver Goals of Treatment: per medical team recommendations at discharge for CT surgery Potential Needs for Transition of Care: Rehab/SNF: TBD Home Health: TBD DME: no Dialysis: no Community Resources: non3 Transportation: ride home with a friend Other: none Anticipated Barriers to Discharge/Special Considerations: none anticipated at this time Plan: patient will need VNA services at discharge. The patient/medical field representative has been provided a list of Home Health Agencies/DME vendors which servetheir preferred geographic area. A letter describing our affiliations was reviewed with them and they were educated about their right to choose where referrals are placed. Patient requests referral to: [facility] [employer]. PHONE: [phone] FAX: [phone] Expected date of discharge: Fri/Sat? CM called [...] of care planning. Amanda Moreno RN Pager: [phone] * Op Note - Alirio Esparza MD - 09/21/2016 12:53 PM EST 09/23/2016 Purnima Thacker 1955 [id number] Preoperative Diagnosis: Symptomatic aortic stenosis Postoperative Diagnosis: Symptomatic aortic stenosis Procedure: Aortic valve replacement: Bovine Pericardial 25 mm Surgeon: Alirio Esparza M.D. User Interface Engineer: Philip BALL Anesthesia: General endotracheal anesthesia Drains: [...] applied. The patient was transported to the [facility] on levo. All counts were correct. [...] Operative Note Patient Name: Purnima Thacker : [id number] MR#: [id number] Case Date: 09/21/2016 Surgeon: Surgeon(s) and Role: * Alirio Esparza MD - Primary * Nico Palacios PA - Physician User Interface Engineer Preoperative diagnosis: Postoperative diagnosis: Procedure(s) (LRB): @REPLACE [...] 11/02/2024 12:00 PM EDT Appointment [place] [address] 11/02/2024 1:00 PM EDT Office [place] [phone] Magdalena Peralta MD [facility] [place] [address] 03/01/2025 4:15 PM EDT Office Visit Dermatology at [place] [address] [place] [id number] Marek Bonilla MD [address], [place] [address] Scheduled Orders Name Type Priority Associated Diagnoses [...] DEVICES SCAN 09/26/2016 12:00 AM EST FIRE SYSTEMS INSPECTOR SCAN 09/26/2016 12:00 AM EST POTASSIUM Routine [...] EXT O RDR/RSLT * SCAN DOC: FIRE SYSTEMS INSPECTOR (09/26/2016 12:00 AM EST) Anatomical Region Laterality Modality Other Narrative 09/26/2016 12:00 AM EST Ordered by an unspecified provider. Scanning Provider MEDIA MGR SCAN EXT O RDR/RSLT * Potassium (09/25/2016 4:32 AM EST) Pathologist [facility] Potassium 4.4 3.5 - 5.0 mmol/L [facility] [...] City/State/[facility] Co de Phone Number [facility] [place] [address] * (ABNORMAL) Differential, Automated (09/24/2016 9:56 AM EST) Pathologist [facility] Neutrophil % 76.8 % [facility] Neutrophil Absolute 7.79(H) 1.70 - 6.10 x10(3)/mc L [facility] Lymph % 11.1 % [facility] Lymphocytes Abs 1.1 0.9 - 3.2 x10(3)/mc L [facility] Monocyte % 8.5 % [facility] Monocyte Abs 0.9 0.3 - 0.9 x10(3)/mc L [facility] Eos % 0.5 % [facility] Eosinophils Abs 0.0 0.0 - 0.4 x10(3)/mc L [facility] Basophil % 0.2 % [facility] Baso Absolute 0.0 0.0 - 0.1 x10(3)/mc L [facility] Immature Gran % 2.90 % [facility] Comment: Immature granulocytes(IG's)percentage and absolute count will include metamyelocytes, myelocytes, and promyelocytes. Blood smears from CBCs yielding IG's will be scanned manually for concordance. If this scan disagrees with the automated IG or if promyelocytes are noted, a manual differential will be performed. Immature Gran Absolute 0.29(H) 0.00 - 0.04 x10(3)/mc L [facility] Blood specimen (specimen) 09/24/2016 9:56 AM EST 09/24/2016 10:04 AM EST Narrative Resulting Agency Comment Spec In Lab Alirio Esparza MD HEMATOLOGY ORDERABL ES [facility] [place] [address] * (ABNORMAL) Hemogram (09/24/2016 9:56 AM EST) White Blood Cell 10.1(H) 4.0 - 9.5 x10(3)/mc L [facility] Red Blood Cell 2.87(L) 4.00 - 5.21 x10(6)/mc L [facility] Hemoglobin 9.4(L) 11.7 - [...] Platelet 141(L) 145 - 357 x10(3)/mc L [facility] RDW Standard Deviation 45.0 37.0 - 46.0 fL [facility] RDW coefficient of variation 12.6 11.5 - 14.1 % [facility] Mean Platelet Volume 9.4 7.6 - 12.9 fL [facility] NRBC% auto 1.1 % [facility] NRBC Absolute 0.110(H) 0.000 - 0.000 x10(3)/mc L [facility] Blood specimen (specimen) 09/24/2016 9:56 AM EST 09/24/2016 10:04 AM EST Narrative Resulting Agency Comment Spec In Lab Alirio Esparza MD HEMATOLOGY ORDERABL ES [facility] [place] [address] * (ABNORMAL) Basic Metabolic Panel (non-fasting) (09/24/2016 [...] were not validated at [facility] Results from pediatric patients [...] the following links into your internet browser. [email or web address] Blood specimen (specimen) 09/24/2016 9:56 AM EST 09/24/2016 10:04 AM EST Narrative Resulting Agency Comment Spec In Lab Alirio Esparza MD CHEMISTRY ORDERABLE S [facility] [place] [id number] * XR Chest PA & Lateral (Generic) [...] EST) Potassium 4.5 3.5 - 5.0 mmol/L [facility] [...] CHEMISTRY ORDERABLE S [facility] [place] [address] * POCT Glucose (09/22/2016 8:17 AM EST) Glucose, POC 131 65 - 199 mg/dL [facility] Comment: Supplemental ranges: <140 mg/dL before meals <180 mg/dL all other times of the day Blood specimen (specimen) 09/22/2016 8:17 AM EST 09/22/2016 8:17 AM EST Alirio Esparza MD POINT OF CARE TEST ORDERABLES Performing Organization Address City/[facility]/ZIP Co de Phone Number [facility] [place] [address] * POCT Glucose (09/22/2016 4:01 AM EST) Glucose, POC 135 65 - 199 mg/dL [facility] Comment: Supplemental ranges: <140 mg/dL before meals <180 mg/dL all other times of the day Blood specimen (specimen) 09/22/2016 4:01 AM EST 09/22/2016 4:01 AM EST Alirio Esparza MD POINT OF CARE TEST ORDERABLES [facility] [place] [address] * Scan, Peripheral Blood (09/22/2016 4:00 AM EST) Plat estimate Normal [facility] RBC Morphology Abnormal [facility] Macrocyte 1-5 /HPF [facility] Plat, Giant Less than 1 /HPF [facility] Blood specimen (specimen) 09/22/2016 4:00 AM EST 09/22/2016 4:34 AM EST Narrative Resulting Agency Comment Spec In Lab Alirio Esparza MD HEMATOLOGY ORDERABL ES Performing Organization Address City/[facility]/ZIP Co de Phone Number [facility] [place] [address] * Electrolytes panel (09/22/2016 4:00 AM EST) [...] City/[facility]/ZIP Co de Phone Number [facility] [place] [address] * (ABNORMAL) Differential, Automated (09/22/2016 4:00 AM EST) Neutrophil % 70.9 % [facility] Neutrophil Absolute 5.33 1.70 - 6.10 x10(3)/mc L [facility] Lymph % 9.1 % [facility] Lymphocytes Abs 0.7(L) 0.9 - 3.2 x10(3)/[facility] Monocyte % 18.0 % [facility] Monocyte Abs 1.4(H) 0.3 - 0.9 x10(3)/[facility] Eos % 0.0 % [facility] Eosinophils Abs 0.0 0.0 - 0.4 x10(3)/[facility] Basophil % 0.1 % [facility] Baso Absolute 0.0 0.0 - 0.1 x10(3)/[facility] Immature Gran % 1.90 % [facility] Comment: Immature granulocytes(IG's)percentage and absolute count will include metamyelocytes, myelocytes, and promyelocytes. Blood smears from CBCs yielding IG's will be scanned manually for concordance. If this scan disagrees with the automated IG or if promyelocytes are noted, a manual differential will be performed. Immature Gran Absolute 0.14(H) 0.00 - 0.04 x10(3)/[facility] Blood specimen (specimen) 09/22/2016 4:00 AM EST 09/22/2016 4:34 AM EST Narrative Resulting Agency Comment Spec In Lab Alirio Esparza MD HEMATOLOGY ORDERABL ES [facility] [place] [address] * (ABNORMAL) Hemogram (09/22/2016 4:00 AM EST) White Blood Cell 7.5 4.0 - 9.5 x10(3)/[facility] LAB[facility] Red Blood Cell 2.93(L) 4.00 - 5.21 x10(6)/[facility] Hemoglobin 9.2(L) 11.7 - [...] Standard Deviation 44.0 37.0 - 46.0 fL [facility] RDW coefficient of variation 12.6 11.5 - 14.1 % [facility] Mean Platelet Volume 9.3 7.6 - 12.9 fL [facility] NRBC% auto 0.3 % [facility] NRBC Absolute 0.020(H) 0.000 - 0.000 x10(3)/mc L [facility] Blood specimen (specimen) 09/22/2016 4:00 AM EST 09/22/2016 4:34 AM EST Narrative Resulting Agency Comment Spec In Lab Alirio Esparza MD HEMATOLOGY ORDERABL ES [facility] [place] [address] * (ABNORMAL) Cardiac Enzymes (09/22/2016 4:00 AM [...] MD CHEMISTRY ORDERABLE S Performing Organization Address [facility] de Phone Number [facility] [place] [address] * (ABNORMAL) Glucose, fasting (09/22/2016 4:00 AM [...] MD CHEMISTRY ORDERABLE S Performing Organization Address [facility] de Phone Number [facility] [place] [address] * (ABNORMAL) Creatinine (09/22/2016 4:00 AM EST) [facility] Creatinine 0.69(L) 0.70 - 1.20 mg/dL [facility] Comment: Please note that the pediatric reference intervals supplied above were not validated at [facility]. Results from pediatric patients [...] the following links into your internet browser. [email or web address]kf Blood specimen (specimen) 09/22/2016 4:00 AM EST 09/22/2016 4:34 AM EST Narrative Resulting Agency Comment Spec In Lab Alirio Esparza MD CHEMISTRY ORDERABLE S Performing Organization Address City/[facility] Co de Phone Number [facility] [place] [address] * BUN (09/22/2016 4:00 AM EST) [facility] Blood Urea Nitrogen 10 8 - 18 mg/dL [facility] Blood specimen (specimen) 09/22/2016 4:00 AM EST 09/22/2016 4:34 AM EST Narrative Resulting Agency Comment Spec In Lab Alirio Esparza MD CHEMISTRY ORDERABLE S Performing Organization Address [facility]/ZIP Co de Phone Number [facility] [place] [address] * POCT Glucose (09/21/2016 9:59 PM EST) [facility] Glucose, POC 146 65 - 199 mg/dL [facility] Comment: Supplemental ranges: <140 mg/dL before meals <180 mg/dL all other times of the day Blood specimen (specimen) 09/21/2016 9:59 PM EST 09/21/2016 9:59 PM EST Alirio Esparza MD POINT OF CARE TEST ORDERABLES Performing Organization Address City/[facility]/ZIP Co de Phone Number [facility] [place] [address] * POCT Glucose (09/21/2016 7:26 PM EST) Glucose, POC 152 65 - 199 mg/dL [facility] Comment: Supplemental ranges: <140 mg/dL before meals <180 mg/dL all other times of the day Blood specimen (specimen) 09/21/2016 7:26 PM EST 09/21/2016 7:26 PM EST Alirio Esparza MD POINT OF CARE TEST ORDERABLES Performing Organization Address [facility] Co de Phone Number [facility] [place] [address] * POCT Glucose (09/21/2016 6:00 PM EST) Glucose, POC 146 65 - 199 mg/dL [facility] Comment: Supplemental ranges: <140 mg/dL before meals <180 mg/dL all other times of the day Blood specimen (specimen) 09/21/2016 6:00 PM EST 09/21/2016 6:00 PM EST Alirio Esparza MD POINT OF CARE TEST ORDERABLES Performing Organization Address City/[facility] Co de Phone Number [facility] [place] [address] * (ABNORMAL) BLOOD GAS 2 ARTERIAL (09/21/2016 4:42 PM EST) pH, Arterial 7.35(L) 7.35 - 7.45 [facility] FIO2 Art 40 % [facility] PF Ratio Art 270 [facility] Blood specimen (specimen) 09/21/2016 4:42 PM EST 09/21/2016 4:42 PM EST Alirio Esparza MD POINT OF CARE TEST ORDERABLES Performing Organization Address [facility] Co de Phone Number [facility] [place] [address] * POCT Glucose (09/21/2016 4:07 PM EST) Glucose, POC 150 65 - 199 mg/dL [facility] Comment: Supplemental ranges: <140 mg/dL before meals <180 mg/dL all other times of the day Blood specimen (specimen) 09/21/2016 4:07 PM EST 09/21/2016 4:07 PM EST Alirio Esparza MD POINT OF CARE TEST ORDERABLES Performing Organization Address [facility] de Phone Number [facility] [place] [address] * (ABNORMAL) Hemoglobin (09/21/2016 4:05 PM EST) [facility] Hemoglobin 9.9(L) 11.7 - 15.5 gm/dL [facility] Blood specimen (specimen) 09/21/2016 4:05 PM EST 09/21/2016 4:20 PM EST Narrative Resulting Agency Comment Spec In Lab Alirio Esparza MD HEMATOLOGY ORDERABL ES Performing Organization Address [facility] de Phone Number [facility] [place] [address] * Potassium (09/21/2016 4:05 PM EST) [facility] Potassium 4.6 3.5 - 5.0 mmol/L [facility] [...] City/[facility]/ZIP Co de Phone Number [facility] [place] [address] * POCT Glucose (09/21/2016 2:52 PM EST) Glucose, POC 117 65 - 199 mg/dL [facility] Comment: Supplemental ranges: <140 mg/dL before meals <180 mg/dL all other times of the day Blood specimen (specimen) 09/21/2016 2:52 PM EST 09/21/2016 2:52 PM EST Alirio Esparza MD POINT OF CARE TEST ORDERABLES Performing Organization Address [facility] Co de Phone Number [facility] [place] [address] * POCT Glucose (09/21/2016 1:51 PM EST) Glucose, POC 108 65 - 199 mg/dL [facility] Comment: Supplemental ranges: <140 mg/dL before meals <180 mg/dL all other times of the day Blood specimen (specimen) 09/21/2016 1:51 PM EST 09/21/2016 1:51 PM EST Alirio Esparza MD POINT OF CARE TEST ORDERABLES Performing Organization Address [facility]/ZIP Co de Phone Number [facility] [place] [address] * POCT Glucose (09/21/2016 12:54 PM EST) Glucose, POC 128 65 - 199 mg/dL [facility] Comment: Supplemental ranges: <140 mg/dL before meals <180 mg/dL all other times of the day Blood specimen (specimen) 09/21/2016 12:54 PM EST 09/21/2016 12:54 PM EST Alirio Esparza MD POINT OF CARE TEST ORDERABLES [facility] [place] [address] * EKG 12 Lead (09/21/2016 12:26 PM EST) Ventricular rate 87 BPM MUSE SYSTEM Atrial Rate 87 BPM MUSE SYSTEM P-R Interval 256 ms MUSE SYSTEM QRS Duration 90 ms MUSE SYSTEM Q-T Interval 406 ms MUSE SYSTEM QTC Calculated (Bezet) 488 ms MUSE SYSTEM Calculated P [place] 24 degrees MUSE SYSTEM Calculated R [place] 21 degrees MUSE SYSTEM Calculated T [place] -5 degrees MUSE SYSTEM INTERPRETATION Sinus rhythm with 1st degree A-V block Nonspecific T wave abnormality Prolonged QT Abnormal ECG When compared with ECG of 19-MAY-2016 11:43, MA interval has increased T wave inversion now [...] course of the esophagus and below the [id number]. There is a right IJ PA catheter [...] the course of theesophagus and below the [id number]. There is a right IJ PA catheter [...] [facility] FIO2 Art 100 % [facility] PF Ratio Art 356 [facility] Blood specimen (specimen) 09/21/2016 12:20 PM EST 09/21/2016 12:20 PM EST Alirio Esparza MD POINT OF CARE TEST ORDERABLES Performing Organization Address City/State/[facility] Co de Phone Number [facility] [place] [address] * (ABNORMAL) BLOOD GAS 2 ARTERIAL (09/21/2016 [...] [facility] FIO2 Art 95 % [facility] Flow Art 0.7 LPM [facility] PF Ratio Art 313 [facility] Temp Art 36.7 Celsius [facility] Blood specimen (specimen) 09/21/2016 10:54 AM EST 09/21/2016 10:54 AM EST Alirio Esparza MD POINT OF CARE TEST ORDERABLES Performing Organization Address City/State/[facility] Co de Phone Number [facility] [place] [address] * Thrombin time (09/21/2016 10:50 AM EST) [...] MD HEMATOLOGY ORDERABLE S Performing Organization Address [facility] Co de Phone Number [facility] [place] [address] * Fibrinogen (09/21/2016 10:50 AM EST) Fibrinogen [...] MD HEMATOLOGY ORDERABLE S Performing Organization Address [facility] Co de Phone Number [facility] [place] [address] * APTT (09/21/2016 10:50 AM EST) Partial Thromboplastin Time 32 25 - 35 sec [facility] Comment: The recommended therapeutic range for full dose, unfractionated heparin at [facility] is 80 ? 114 seconds. [...] ORDERABLE S Performing Organization Address City/[facility] Co de Phone Number [facility] [place] [address] * (ABNORMAL) Prothrombin Time (09/21/2016 10:50 AM [...] HEMATOLOGY ORDERABLE S [facility] [place] [address] * (ABNORMAL) Hemogram (09/21/2016 10:50 AM EST) [...] [facility] NRBC% auto 0.1 % [facility] NRBC Absolute 0.020(H) 0.000 - 0.000 x10(3)/mc L [facility] Blood specimen (specimen) 09/21/2016 10:50 AM EST 09/21/2016 10:56 AM EST Narrative Resulting Agency Comment Spec In Lab Luis Enrique Quarles MD HEMATOLOGY ORDERABLE S Performing Organization Address [facility] Co de Phone Number [facility] [place] [address] * Prepare Platelets, Apheresis (09/21/2016 10:30 AM EST) Dispensed? Yes [facility] Blood specimen (specimen) 09/21/2016 10:30 AM EST 09/21/2016 10:28 AM EST Alirio Esparza MD BLOOD BANK PRODUCT ORDERABLES Performing Organization Address [facility] de Phone Number [facility] [place] [phone] * (ABNORMAL) BLOOD GAS 2 ARTERIAL (09/21/2016 10:05 AM EST) pH, Arterial 7.33(L) 7.35 - 7.45 [facility] PCO2, Arterial 54(Critic al) 35 - 45 mmHg [facility] Comment:Noted by instrument shop supervisor. PO2, Arterial 218(H) 85 - 104 [...] [facility] Comment: Noted by instrument shop supervisor. Please note: Patients with WBC >100,000 [...] [facility] Temp Art 37.0 Celsius [facility] Blood specimen (specimen) 09/21/2016 10:05 AM EST 09/21/2016 10:05 AM EST Alirio Esparza MD POINT OF CARE TEST ORDERABLES [facility] [place] [address] * (ABNORMAL) BLOOD GAS 2 ARTERIAL (09/21/2016 9:44 AM EST) pH, Arterial 7.22(Criti gabrielle) 7.35 - 7.45 [facility] Comment:Noted by instrument shop supervisor. PCO2, Arterial 70(Critica l) 35 - 45 mmHg [facility] Comment:Noted by instrument shop supervisor. PO2, Arterial 224(H) 85 - 104 [...] CARE TEST ORDERABLES [facility] [place] [address] * (ABNORMAL) Hemoglobin (09/21/2016 9:42 AM EST) Hemoglobin 7.2(L) 11.7 - 15.5 gm/dL [facility] Blood specimen (specimen) 09/21/2016 9:42 AM EST 09/21/2016 9:51 AM EST Narrative Resulting Agency Comment Spec In Lab Alirio Esparza MD HEMATOLOGY ORDERABL ES [facility] [place] [address] * Platelet count (09/21/2016 9:42 AM EST) Platelet 159 145 - 357 x10(3)/mc L [facility] Immature Plt % 1.6 0.0 - 7.4 % [facility] Comment: Limitation of the Immature Platelet Fraction (IPF)-May be less reliable when the platelet count is less than 72t557/uL due to statistical imprecision. The IPF value [...] in a decreased state of production. References: [employer] The Clinical Value of the Immature Platelet Fraction (IPF) in Cell Recovery Document Number 10-1143 12/2010 [employer] The Role of the Immature Platelet Fraction (IPF) in the Differential Diagnosis of Thrombocytopenia, Document [id number] V05/12/14 P05/14 Blood specimen (specimen) 09/21/2016 9:42 AM EST 09/21/2016 9:51 AM EST Narrative Resulting Agency Comment Spec In Lab Alirio Esparza MD HEMATOLOGY ORDERABL ES Performing Organization Address [facility] Co de Phone Number [facility] [place] [address] * (ABNORMAL) Hematocrit (09/21/2016 9:42 AM EST) [...] ORDERABL ES Performing Organization Address [facility] Co de Phone Number [facility] [place] [address] * Fibrinogen (09/21/2016 9:42 AM EST) Fibrinogen [...] HEMATOLOGY ORDERABL ES Performing Organization Address City/[facility] Co de Phone Number [facility] [place] [address] * (ABNORMAL) BLOOD GAS 2 ARTERIAL (09/21/2016 [...] [facility] Temp Art 37.0 Celsius [facility] Blood specimen (specimen) 09/21/2016 9:10 AM EST 09/21/2016 9:10 AM EST Alirio Esparza MD POINT OF CARE TEST ORDERABLES [facility] [place] [address] * Surgical Pathology Report (09/21/2016 9:09 AM EST) Final Diagnosis [id number] ?Location: 3T The signing pathologist has (i) [...] AM EST Alirio Esparza MD PATHOLOGY/CYTOLOGY ORDERABLES [facility] [place] [address] * Specimen to Pathology (surgical or derm) (09/21/2016 9:09 AM EST) AP Specimen 09/21/2016 9:09 AM EST 09/21/2016 9:09 AM EST Narrative [facility] - 09/21/2016 9:09 AM EST Specimen requisition ordered. ??Separate Pathology report to follow Alirio Esparza MD PATHOLOGY/CYTOLOGY ORDERABLES [facility] [place] [address] * (ABNORMAL) BLOOD GAS 2 ARTERIAL (09/21/2016 [...] CARE TEST ORDERABLES [facility] [place] [address] * (ABNORMAL) BLOOD GAS 2 ARTERIAL (09/21/2016 [...] [facility] FIO2 Art 95 % [facility] Flow Art 1.1 LPM [facility] PF Ratio Art 298 [facility] Temp Art 35.6 Celsius [facility] Blood specimen (specimen) 09/21/2016 8:18 AM EST 09/21/2016 8:18 AM EST Alirio Esparza MD POINT OF CARE TEST ORDERABLES Performing Organization Address City/[facility] Co de Phone Number [facility] [place] [address] * Prepare RBC (09/21/2016 7:05 AM EST) Dispensed? Yes [facility] Blood specimen (specimen) 09/21/2016 7:05 AM EST 09/21/2016 7:02 AM EST Alirio Esparza MD BLOOD BANK PRODUCT ORDERABLES Performing Organization Address City/[facility] Co de Phone Number [facility] [place] [address] * POCT Glucose (09/21/2016 6:42 AM EST) Glucose, POC 104 65 - 199 mg/dL [facility] Comment: Supplemental ranges: <140 mg/dL before meals <180 mg/dL all other times of the day Blood specimen (specimen) 09/21/2016 6:42 AM EST 09/21/2016 6:42 AM EST Alirio Esparza MD POINT OF CARE TEST ORDERABLES [facility] [place] [address] documented in this encounter Visit Diagnoses Not [...] dose on Wed09/21/16 at 1230, Until Discontinued, [place] teeth, Routine Given 09/25/2016 9:40 AM EST [...] - Provider: Kendall Martínez [facility]) aspirin chewable tablet 81 mg(Linked Group [...] dose on Wed09/21/16 at 1230, Until Discontinued, [place] teeth, Routine 0900 (Not Given - Provider: Elsa Miguel RN - Reason: Patient/family refused)2019 (Given - Provider: Federico Apple RN) 0900 (Not Given - Provider: Maerk Barnes RN - Reason: Patient/family refused)2100 (Not [...] Routine documented in this encounter Care Teams Secondary History Teacher Relationship Specialty Start Date End Date Deborah Quiroga APRN PCP - General Family Medicine 03/24/16 02/04/23 documented as of this encounter
--- OUTSIDE RECORDS SUMMARY | 2024-07-15 12:33 | XMS_ITS | Encounter Summary ---
Author Organization [facility] Address [facility] [place] [address] Care Team Providers Care Veneer Taping Machine Operator Name Role Phone Deborah Quiroga ANURAG Primary Care Provider [phone] Encounter Details Date Type Department Care Team (Late st Contact Info) Description 12/04/2016 External Results Hematology and Oncology at [place] [phone] Teresa Dodson, RN Social History Tobacco Use [...] PM EDT Appointment Pulmonology at [place] [phone] 11/02/2024 1:00 PM EDT [place] [address] Magdalena Peralta MD [facility] [place] [address] 03/01/2025 4:15 PM EDT Office Visit Dermatology at [address] [phone] Marek Bonilla MD [address] [place] [address], [place] [address] documented as of this encounter Procedures Procedure Name Priority Date/Time Associated Diagnosis Comments CBC (WITH DIFF) Routine 12/03/2016 11:35 AM EDT COMPREHENSIVE METABOLIC PANEL Routine 12/03/2016 11:35 AM EDT documented in this encounter Results * (ABNORMAL) Comprehensive metabolic panel (non-fasting) (12/03/2016 11:35 AM EDT) Glucose 85(Projector Booth Operator al Lab) Blood Urea Nitrogen 11(Projector Booth Operator al Lab) Creatinine 0.93(Exte rnal Lab) Sodium 140(Exter nal Lab) Potassium 4.2(Exter nal Lab) Chloride 104(Exter nal Lab) Calcium 10.0(Exte rnal Lab) Protein, Total 8.1(Exter nal Lab) Albumin 3.5(Exter nal Lab) Bilirubin, Total 0.25(Exte rnal Lab) Alkaline Phosphatase 96(Projector Booth Operator al Lab) Aspartate Aminotransferase 18(Projector Booth Operator al Lab) Alanine Aminotransferase 21(Projector Booth Operator al Lab) Blood specimen (specimen) 12/03/2016 11:35 AM EDT Historical Provider CHEMISTRY ORDERAB LES * (ABNORMAL) CBC (with Diff) (12/03/2016 11:35 AM EDT) White Blood Cell 1.61(EXTER NAL/ABN) 4.4 - 10.8 Hemoglobin 13.0(Exter nal Lab) Hematocrit 39.8(Exter nal Lab) Platelet 248(Projector Booth Operator al Lab) Neutrophil Absolute (ANC) - Automated 0.5(VISUAL MERCHANDISING COORDINATOR AL/ABN) Blood specimen (specimen) 12/03/2016 11:35 AM EDT Historical Provider HEMATOLOGY ORDERA BLES documented in this encounter Visit Diagnoses Not on filedocumented in this encounter Care Teams Veneer Taping Machine Operator Relationship Specialty Start Date End Date Deborah Quiroga APRN PCP - General Family Medicine 03/24/16 02/04/23 documented as of this encounter
--- OUTSIDE RECORDS SUMMARY | 2024-07-15 12:33 | XMS_ITS | Encounter Summary ---
[place] [address] Care Team Providers Care Emu Farmer Name Role Phone Junaid Deborah Shields APRN Primary Care Provider [phone] Encounter Details Date Type Department Care Team (Late st Contact Info) Description 10/20/2016 11:20 AM EDT Office [place] [phone] Alirio Esparza MD S/P AVR Social History [...] all of her postoperative tests done at [facility]. Her echo shows a well-seated valve. Her EF, for some reason, was read as in the 45% to 50% range. She had a normal EF to start. I think that will need to be repeated at [facility]. She has no perivalve leak. Her mean [...] should continue to see Dr. Burrell, her aix administrator at [facility]. cc: Dr. Burrell documented in this encounter Plan of Treatment Upcoming Encounters Date Type Department Care Team (Late st Contact Info) Description 11/02/2024 12:00 PM EDT Appointment [place] [address] 11/02/2024 1:00 PM EDT Office [place] [phone] Magdalena Peralta MD [facility] [place] [address] 03/01/2025 4:15 PM EDT Office Visit Dermatology at [address] [address] Marek Bonilla MD [address], [place] [address] documented as of this encounter Visit Diagnoses Diagnosis S/P AVR Heart valve replaced by other means documented in this encounter Care Teams Emu Farmer Relationship Specialty Start Date End Date Deborah Quiroga, CAREER MANAGER PCP - General Family Medicine 03/24/16 02/04/23 documented as of this encounter
--- OUTSIDE RECORDS SUMMARY | 2024-07-15 12:33 | XMS_ITS | Encounter Summary ---
Author Organization [facility]ly [facility], [facility] Address [facility] [place] [address] Care Team Providers Care Lead Laying And Gluing Machine Operator Name Role Phone Deborah Quiroga APRN Primary Care Provider [phone] Encounter Details Date Type Department Care Team (Latest Contact Info) Description 10/14/2016 - 10/14/2016 11:59 PM EDT Hospital Encounter Radiology Library at [facility] [place] [phone] Alirio Esparza MD Pain Discharge Disposition: Home [...] 11/02/2024 12:00 PM EDT [place] [address] 11/02/2024 1:00 PM EDT [place] [address] Magdalena Peralta MD [facility] [place] [address] 03/01/2025 4:15 PM EDT Office Visit Dermatology at [address] [place] [phone] Marek Bonilla MD [address] [place] [address], [place] [address] documented as of this encounter Procedures Procedure Name Priority Date/Time Associated Diagnosis Comments FILM LIBRARY STORAGE ONLY DX CHEST Routine 10/14/2016 12:00 AM EDT Pain documented in this encounter Results * Film Library- Storage Only DX Chest (10/14/2016 12:00 AM EDT) Narrative [facility] - 10/14/2016 5:16 PM EDT This exam is for storage only and is auto-finalizing. Alirio Esparza MD IMG FILM LIBRARY OR DERABLES [place] documented in this encounter Visit Diagnoses Diagnosis Pain Generalized pain documented in this encounter Care Teams Lead Laying And Gluing Machine Operator Relationship Specialty Start Date End Date Deborah Quiroga, URGENT CARE PHYSICIAN ASSISTANT PCP - General Family Medicine 03/24/16 02/04/23 documented as of this encounter
--- OUTSIDE RECORDS SUMMARY | 2024-07-15 12:33 | XMS_ITS | Encounter Summary ---
Author Organization [facility] [place] [address] Care Team Providers Care Ground Operations Superintendent Name Role Phone Ashley Quirogazac Shields APRN Primary Care Provider [phone] Reason for Referral * Consultation (Routine) - Specialty Diagnoses / Procedures Referred By Contact Referred To Contact Cardiac Rehabilitation Diagnoses S/P AVR Alirio Esparza MD [facility] [place] [address] Cardiac Rehab, [address] [place] [address] Referral ID Status Reason Start Date Expiration Date V isits Requested Visits Authorized [id number] Consult, Test & Treat 09/25/2016 03/24/2017 36 36 Reason for Visit * Auth/Cert Specialty Diagnoses / Procedures Referred By Contkrystle t Referred To Contact Diagnoses Aortic stenosis Procedures PRO REPLACE AORT VALV, PROSTH VALV @REPLACE AORTIC VALVE, OPEN, W\CPB, W\PROSTHETIC VALVE (WRVU 41.32) Referral ID Status Reason Start Date Expiration Date Visits Re quested Visits Authorized [id number] 1 1 Encounter Details Date Type Department Care Team (Latest Contact Info) Description 09/21/2016 6:08 AM EST - 09/25/2016 4:33 PM EST Hospital Encounter Inter[place] [phone] Alirio Esparza MD Aortic valve stenosis, unspecified [...] Patient Age: 61 y.o. Birthdate: 1955 Language: Sierra Leonean Race: White Ethnicity: Not nor Admit Date: 09/21/2016 Discharge Date: 09/25/2016 Attending Physician: Alirio Esparza MD Follow-up Recommendations for Providers: Please continue routine management of cardiovascular risk factors including blood pressure, lipids,glucose, etc. Please note any changes to medications. Patient to follow-up with PCP, Deborah Quiroga APRN, in 1-2 weeks. Patient to follow-up with Humidifier Operator, Dr. Antelmo Burrell, in two weeks. Patient to follow-up with Cardiac Surgery, Dr. Alirio Esparza, to be scheduled for before 10/19/2016, with CXR, EKG, and Echo. Inpatient Provider Contact Information: [facility] Section of Cardiac Surgery [facility] [address] FAX [phone] Discharge Diagnoses (Hospital Problems) Primary Diagnoses: Secondary [...] Purnima Thacker was admitted to [facility] on 09/21/2016 via the Same Day [...] Alirio Esparza and/or the Cardiac Surgery Physician Supply Teacher Team may be reached at . [...] to your dentist. Please refer to the [place] [employer] [...] Dr. Alirio Jones. You may use a [place] Track or treadmill but avoid any pulling [...] friends, go to a movie, go to buddhist, etc. Heavy activities: No hunting, skiing, jogging, [...] low fat, low cholesterol, [place] Heart [employer] Diet. Driving: No driving until [...] AM Markel Borjas MD [facility] [phone] Future Orders Complete By Expires Echocardiogram Transthoracic([place]) [VAZ093 Custom] 10/18/2016 (Approximate) 09/18/2017 Process Instructions: If the Echocardiogram is to be PERFORMED in a location other than [place]--STOP and order [id number], Echocardiogram South/External. Scheduling Instructions: Questions: Is a Bubble Study requested?: No Does the patient have Congenital Heart Disease?: No Does patient require sedation?: None GA rationale: Should this service be billed to the research sponsor?: EKG 12 Lead [EKG1 Custom] 10/18/2016 (Approximate) 09/25/2017 Process Instructions: Scheduling Instructions: Questions: Which location will this be performed?: [place] Is a rhythm strip needed?: No If EKG Reason is Pre-op Evaluation, indicate diagnosis for surgery.: Should this service be billed to the research sponsor?: XR Chest PA & Lateral (Generic) [[id number] Custom] 10/18/2016 (Approximate) 09/25/2017 Process Instructions: Scheduling Instructions: Questions: Where will study be performed?: [place]- Radiology Portable exam?: No Reason for exam and clinical history: s/p AVReplacement, patch annuloplasty 1 month f/u Other pertinent information: Stat read required?: Date of injury if applicable: Requested Time: Referral to Cardiac Rehab [CGX351 Custom] As directed Process Instructions: If no progress note charted, please enter Clinical details in comments. Scheduling Instructions: Questions: My question or request is: s/p AVR. Cardiac rehab at [facility] Referral to Home Health - at DISCHARGE [KOS8050 CPT(R)] As directed Process Instructions: Scheduling Instructions: Comments: DOCUMENTATION FOR VNA SERVICES (INCLUDING THOSE PATIENTS WITH MEDICARE COVERAGE REQUIRING HOME VNA SERVICES AND/OR HOSPICE SERVICES) PATIENT'S LOCATION: Purnima Magalie Kirstie [address] [place] [phone] (home) No relevant phone numbers on file. Siphoner's Name: self In discussion with the attending physician, it is certified that this patient is under their care and that they, or a Nurse Practitioner, or Physician Supply Teacher who is working directly with them, [...] for services as follows: HOME HEALTH AGENCY: [facility] PHONE: [phone] FAX: [phone] RN orders: Cardiopulmonary assessment, incisional assessment, assess [...] issues please call the Cardiac SurgeryOffice at [phone] FOR MEDICARE ONLY: In discussion with the [...] Agency name and contact information: [facility] VNA Patient location post discharge: home What services are requested: Registered Nurse Physical Therapy Occupational Therapy Start date: Responsible MD post discharge contact info: Arrangements for VNA/home care: As above. VN RN OR PCP TO PLEASE REMOVE CHEST TUBE SUTURES ON OR AFTER 09/30/16 Signed: Crispin Aranda PA-C 09/25/2016 [facility] Section of Cardiac Surgery [facility] [address] FAX [phone] Date: 09/25/2016 CC: ANURAG Alford Caryn E, APRN [address] [place] [address] documented in this encounter Discharge Instructions * [...] Alirio Esparza and/or the Cardiac Surgery Physician Supply Teacher Team may be reached at . [...] to your dentist. Please refer to the [place] [employer] [...] Dr. Alirio Jones. You may use a [place] Track or treadmill but avoid any pulling [...] friends, go to a movie, go to buddhist, etc. Heavy activities: No hunting, skiing, jogging, [...] low fat, low cholesterol, [place] [employer] Diet. Driving: No driving until [...] PM EST Cardiac Surgery Progress Note: ID: [id number] S/p AVR, patch aortoplasty POD#2. PMH of [...] Gas) No results found for: PHART, PO2ART, XJA4KFS Assessment/Plan: TPW out this am. (+) BM. [...] Signed: Crispin Aranda PA-C 09/24/2016 Team pager: [phone]; [phone] after 5pm [facility] Section of Cardiac Surgery * Leonor Henson, CARTON STAMPER - 09/23/2016 10:48 AM EST Cardiac Surgery Progress Note: ID: [id number] s/p AVR, patch aortoplasty POD#2. PMH of [...] Gas) No results found for: PHART, PO2ART, JOZ4CRH Assessment/Plan: s/p AVR, patch aortoplasty POD#2. PMH of Neutropenia, HLD, HTN, Depression, obesity, . Transferred from [facility] yesterday and doing well. Pathway. Will dc [...] rounds. Signed: Leonor Henson APRN [facility] Section of Cardiac Surgery Date: 09/23/2016 * Nico Palacios PA - 09/22/2016 9:56 AM EST Cardiac Surgery Progress Note: ID: [id number] s/p AVR, patch aortoplasty POD#1. PMH of [...] NT, ND, soft. Ext: Moves all extremities. [place], well perfused. Incisions: C/D/I Tubes/Lines/Drains: PIV, leanna, [...] on rounds. Signed: EKATERINA KIM [facility] Section of Cardiac Surgery Date: 09/22/2016 [...] with outpatient services Lalitha Cohen SPTA Pager: [phone] Inpatient Physical Therapy Patient status, treatment interventions, and goals discussed with student. I am in agreement with all details and associated flowsheet rows as documented and was present for all aspects of the patient treatment session. Nerykatrina Jaramillo, [facility] Pager [phone] Problem: Acute Rehab Services Goal & Intervention Plan Goal: Bed Mobility Goal Stand Alone Therapy Goal Outcome: Ongoing (Interventions Implemented as Appropriate) 09/22/16 16109/25/16 09 Bed Mobility Goal Bed Mobility Goal, Time to Achieve 4 days -- Bed Mobility Goal, Activity Type scoot/bridge;supine to sit/sit to supine -- Bed Mobility Goal, Morris Level independent -- Bed Mobility Goal, Additional [...] Achieve 4 days -- Gait Training Goal, Morris Level independent -- Gait Training Goal, Distance [...] health Lalitha Cohen [facility] Pager: [phone] Inpatient Physical Therapy Patient status, treatment interventions, and goals discussed with student. I am in agreement with all details and associated flowsheet rows as documented and was present for all aspects of the patient treatment session. Nery Jaramillo, [facility] Pager [phone] Problem: Acute Rehab Services Goal & Intervention Plan Goal: Bed Mobility Goal Stand Alone Therapy Goal Outcome: Ongoing (Interventions Implemented as Appropriate) 09/22/16 16109/23/16 1412 Bed Mobility Goal Bed Mobility Goal, Time to Achieve 4 days -- Bed Mobility Goal, Activity Type scoot/bridge;supine to sit/sit to supine -- Bed Mobility Goal, Morris Level independent -- Bed Mobility Goal, Additional [...] Achieve 4 days -- Gait Training Goal, [place] Level independent -- Gait Training Goal, Distance [...] days -- Transfer Training Goal, Activity Type znx-nq-auzml/pktkn-ny-lbo;jmw-bc-vjysl/ujeds-nd-yys -- Transfer Train Goal, Morris Level independent -- Transfer Training Goal, Additional [...] Another Service: (cardiac rehab) NICOLE HERNANDEZ, PT Pager:[phone] Inpatient Physical Therapy Problem: Acute Rehab Services Goal & Intervention Plan Goal: Bed Mobility Goal Stand Alone Therapy Goal Outcome: Ongoing (Interventions Implemented as Appropriate) 09/22/16 1611 Bed Mobility Goal Bed Mobility Goal, Time to Achieve 4 days Bed Mobility Goal, Activity Type scoot/bridge;supine to sit/sit to supine Bed Mobility Goal, Morris Level independent Bed Mobility Goal, Additional Goal able to abide sternal precautions during transfers Goal: Gait Training Goal Stand Alone Therapy Goal Outcome: Ongoing (Interventions Implemented as Appropriate) 09/22/16 1611 Gait Training Goal Gait Training Goal, Date Established 09/22/16 Gait Training Goal, Time to Achieve 4 days Gait Training Goal, Morris Level independent Gait Training Goal, Distance to Achieve ascend and descends 2 steps independently Goal: Goal Transfer Training Stand Alone Therapy Goal Outcome: Ongoing (Interventions Implemented as Appropriate) 09/22/16 1611 Goal Transfer Training Transfer Training Goal, Time to Achieve 4 days Transfer Training Goal, Activity Type zpg-ag-wvrwb/eurqy-ou-uvg;tyn-he-bbqib/jcbvy-qf-shu Transfer Train Goal, Morris Level independent Transfer Training Goal, Additional Goal [...] of completing AD's at home, chooses her wofsls-qz-kno, Martha Thacker (home) for her [facility], 2nd choice in friend, Nitesh Leroy [place], [place] Current Coping/Education/Information Needs: patient sitting up [...] who live close by, [place], and her drjkqk-no-mci Martha Thacker who she has chosen to be her DPOAH. Also has a friend Nitesh Leroy who lives in [place], [place], also her DPOAH choice. Behavioral Health History: none on file in [facility] Substance Use/Abuse: none on file in [facility] Other Pertinent/Service Specific Information: none Health/Prescription Coverage: Primary Insurance: [employer] Secondary Insurance: none Prescription Coverage: yes, per patient no issues Preferred Pharmacy: ?? Other: none Primary Care Provider: Deborah Quiroga, CARTON STAMPER [phone] Patient/Caregiver Goals of Treatment: per medical team recommendations at discharge for CT surgery Potential Needs for Transition of Care: Rehab/SNF: TBD Home Health: TBD DME: no Dialysis: no Community Resources: non3 Transportation: ride home with a friend Other: none Anticipated Barriers to Discharge/Special Considerations: none anticipated at this time Plan: patient will need VNA services at discharge. The patient/customer contact representative has been provided a list of Home Health Agencies/DME vendors which servetheir preferred geographic area. A letter describing our affiliations was reviewed with them and they were educated about their right to choose where referrals are placed. Patient requests referral to: [facility]. PHONE: [phone] FAX: [phone] Expected date of discharge: Fri/Sat? CM called VNA to confirm referral, talked with VALDO Bunn/intake who stated she was familiar w/patient & would monitor her progress through curaspan. Referral routed to the Pharmacy Technician Inpatient for matching with agency/vendor and to provide any required information. A member of the Care Management team will continue to monitor progress, follow for continuity of care and assist with transition of care planning. Amanda Moreno RN Pager: [phone] * Op Note - Alirio Esparza MD - 09/21/2016 12:53 PM EST 09/23/2016 Purnima Thacker 1955 [id number] Preoperative Diagnosis: Symptomatic aortic stenosis Postoperative Diagnosis: Symptomatic aortic stenosis Procedure: Aortic valve replacement: Bovine Pericardial 25 mm Surgeon: Alirio Esparza M.D. Supply Teacher: Philip BALL Anesthesia: General endotracheal anesthesia [...] Operative Note Patient Name: Purnima Thacker : [id number] MR#: [id number] Case Date: 09/21/2016 Surgeon: Surgeon(s) and Role: * Alirio Esparza MD - Primary * Nico Palacios PA - Physician Supply Teacher Preoperative diagnosis: Postoperative diagnosis: Procedure(s) (LRB): [...] 11/02/2024 12:00 PM EDT [place] [address] 11/02/2024 1:00 PM EDT [place] [address] Magdalena Peralta MD [facility] [place] [address] 03/01/2025 4:15 PM EDT Office Visit Dermatology at [address] [place] [phone] Marek Bonilla MD [address] [place] [address], [place] [address] Scheduled Orders Name Type Priority Associated Diagnoses [...] IMPLANTABLE DEVICES SCAN 09/26/2016 12:00 AM EST CASH MANAGEMENT ASSOCIATE SCAN 09/26/2016 12:00 AM EST POTASSIUM Routine [...] SCAN EXT O RDR/RSLT * SCAN DOC: CASH MANAGEMENT ASSOCIATE (09/26/2016 12:00 AM EST) Anatomical Region Laterality Modality Other Narrative 09/26/2016 12:00 AM EST Ordered by an unspecified provider. Scanning Provider MEDIA MGR SCAN EXT O RDR/RSLT * Potassium (09/25/2016 4:32 AM EST) [facility] Potassium 4.4 3.5 - 5.0 mmol/L WHITE [...] [facility] [place] [address] * (ABNORMAL) Differential, Automated (09/24/2016 9:56 AM EST) Neutrophil % 76.8 % [facility] Neutrophil Absolute 7.79(H) 1.70 - 6.10 x10(3)/mc L [facility] Lymph % 11.1 % [facility] Lymphocytes Abs 1.1 0.9 - 3.2 x10(3)/mc L [facility] Monocyte % 8.5 % [facility] Monocyte Abs 0.9 0.3 - 0.9 x10(3)/mc L [facility] Eos % 0.5 % [facility] Eosinophils Abs 0.0 0.0 - 0.4 x10(3)/[facility] Basophil % 0.2 % [facility] Baso Absolute 0.0 0.0 - 0.1 x10(3)/[facility] Immature Gran % 2.90 % WHITE [...] Gran Absolute 0.29(H) 0.00 - 0.04 x10(3)/[facility] Blood specimen (specimen) 09/24/2016 9:56 AM EST 09/24/2016 10:04 AM EST Narrative Resulting Agency Comment Spec In Lab Alirio Esparza MD HEMATOLOGY ORDERABL ES [facility] [place] [address] * (ABNORMAL) Hemogram (09/24/2016 9:56 AM EST) White Blood Cell 10.1(H) 4.0 - 9.5 x10(3)/[facility] Red Blood Cell 2.87(L) 4.00 - 5.21 x10(6)/[facility] Hemoglobin 9.4(L) 11.7 - 15.5 [...] MEDICAL CENTER LABORATORY NRBC% auto 1.1 % [facility] NRBC Absolute 0.110(H) 0.000 - 0.000 x10(3)/mc L [facility] Blood specimen (specimen) 09/24/2016 9:56 AM EST 09/24/2016 10:04 AM EST Narrative Resulting Agency Comment Spec In Lab Alirio Esparza MD HEMATOLOGY ORDERABL ES [facility] [place] [id number] * (ABNORMAL) Basic Metabolic Panel (non-fasting) (09/24/2016 [...] the following links into your internet browser. [email or web address] Blood specimen (specimen) 09/24/2016 9:56 AM EST 09/24/2016 10:04 AM EST Narrative Resulting Agency Comment Spec In Lab Alirio Esparza MD CHEMISTRY ORDERABLE S [facility] [place] [address] * XR Chest PA & Lateral (Generic) [...] retrocardiac atelectasis. No pneumothorax. Procedure Note Avis Mckniney MD - 09/24/2016 EXAMINATION: XR CHEST PA [...] ORDERABLES * Potassium (09/23/2016 3:31 AM EST) [facility] Signature Potassium 4.5 3.5 - 5.0 mmol/L WHITE [...] [place]/ZIP Co de Phone Number [facility] [place] [address] * POCT Glucose (09/22/2016 8:17 AM EST) [facility] Signature Glucose, POC 131 65 - 199 mg/dL [facility] Comment: Supplemental ranges: <140 mg/dL before meals <180 mg/dL all other times of the day Blood specimen (specimen) 09/22/2016 8:17 AM EST 09/22/2016 8:17 AM EST Alirio Esparza MD POINT OF CARE TEST ORDERABLES [facility] [place] [address] * POCT Glucose (09/22/2016 4:01 AM EST) [facility] Glucose, POC 135 65 - 199 mg/dL [facility] Comment: Supplemental ranges: <140 mg/dL before meals <180 mg/dL all other times of the day Blood specimen (specimen) 09/22/2016 4:01 AM EST 09/22/2016 4:01 AM EST Alirio Esparza MD POINT OF CARE TEST ORDERABLES Performing Organization Address [facility] Co de Phone Number [facility] [place] [address] * Scan, Peripheral Blood (09/22/2016 4:00 AM EST) [facility] Plat estimate Normal [facility] RBC Morphology Abnormal [facility] Macrocyte 1-5 /HPF [facility] Plat, Giant Less than 1 /HPF [facility] Blood specimen (specimen) 09/22/2016 4:00 AM EST 09/22/2016 4:34 AM EST Narrative Resulting Agency Comment Spec In Lab Alirio Esparza MD HEMATOLOGY ORDERABL ES Performing Organization Address [facility] de Phone Number [facility] [place] [address] * Electrolytes panel (09/22/2016 4:00 AM EST) [facility] Sodium 145 135 - 145 mmol/L WHITE [...] [facility] [place] [address] * (ABNORMAL) Differential, Automated (09/22/2016 4:00 AM EST) Neutrophil % 70.9 % [facility] Neutrophil Absolute 5.33 1.70 - 6.10 x10(3)/mc L [facility] Lymph % 9.1 % [facility] Lymphocytes Abs 0.7(L) 0.9 - 3.2 x10(3)/mc L [facility] Monocyte % 18.0 % [facility] Monocyte Abs 1.4(H) 0.3 - 0.9 x10(3)/ L [facility] Eos % 0.0 % [facility] Eosinophils Abs 0.0 0.0 - 0.4 x10(3)/[facility] Basophil % 0.1 % [facility] Baso Absolute 0.0 0.0 - 0.1 x10(3)/mc L [facility] Immature Gran % 1.90 % WHITE [...] Absolute 0.14(H) 0.00 - 0.04 x10(3)/ L [facility] Blood specimen (specimen) 09/22/2016 4:00 AM EST 09/22/2016 4:34 AM EST Narrative Resulting Agency Comment Spec In Lab Alirio Esparza MD HEMATOLOGY ORDERABL ES [facility] [place] [address] * (ABNORMAL) Hemogram (09/22/2016 4:00 AM EST) White Blood Cell 7.5 4.0 - 9.5 x10(3)/mc L [facility] Red Blood Cell 2.93(L) 4.00 - 5.21 x10(6)/mc L [facility] Hemoglobin 9.2(L) 11.7 - [...] MEDICAL CENTER LABORATORY NRBC% auto 0.3 % [facility] NRBC Absolute 0.020(H) 0.000 - 0.000 x10(3)/mc L [facility] Blood specimen (specimen) 09/22/2016 4:00 AM EST 09/22/2016 4:34 AM EST Narrative Resulting Agency Comment Spec In Lab Alirio Esparza MD HEMATOLOGY ORDERABL ES [facility] [place] [address] * (ABNORMAL) Cardiac Enzymes (09/22/2016 4:00 AM EST) [facility] Troponin-T 0.13(H) <=0.03 ng/mL [place] [...] consensus document of the Joint Society of Cardiology/[place] College of Cardiology Committee for the redefinition of myocardial infarction. ??Journal of the [place] College of Cardiology 2000; 36: 959-969] Creatine Kinase 338(H) 0 - 160 unit/L [facility] Blood specimen (specimen) 09/22/2016 4:00 AM EST 09/22/2016 4:34 AM EST Narrative Resulting Agency Comment Spec In Lab Alirio Esparza MD CHEMISTRY ORDERABLE S Performing Organization Address City/State/[facility] Co de Phone Number [facility] [place] [address] * (ABNORMAL) Glucose, fasting (09/22/2016 4:00 AM EST) [facility] Glucose Fasting 137(H) 65 - 99 [...] of Diabetes Mellitus, Position Statement from the [place] Diabetes Association. ??Diabetes Care, Volume 33, Supplement 1, Aug 2009 Blood specimen (specimen) 09/22/2016 4:00 AM EST 09/22/2016 4:34 AM EST Narrative Resulting Agency Comment Spec In Lab Alirio Esparza MD CHEMISTRY ORDERABLE S Performing Organization Address [facility] Co de Phone Number [facility] [place] [address] * (ABNORMAL) Creatinine (09/22/2016 4:00 AM EST) [facility] Creatinine 0.69(L) 0.70 - 1.20 mg/dL WHITE [...] the following links into your internet browser. [email or web address] Blood specimen (specimen) 09/22/2016 4:00 AM EST 09/22/2016 4:34 AM EST Narrative Resulting Agency Comment Spec In Lab Alirio Esparza MD CHEMISTRY ORDERABLE S Performing Organization Address [facility] Co de Phone Number [facility] [place] [address] * BUN (09/22/2016 4:00 AM EST) Blood Urea Nitrogen 10 8 - 18 mg/dL [facility] Blood specimen (specimen) 09/22/2016 4:00 AM EST 09/22/2016 4:34 AM EST Narrative Resulting Agency Comment Spec In Lab Alirio Esparza MD CHEMISTRY ORDERABLE S Performing Organization Address City/[facility]/ZIP Co de Phone Number [facility] [place] [address] * POCT Glucose (09/21/2016 9:59 PM EST) Glucose, POC 146 65 - 199 mg/dL [facility] Comment: Supplemental ranges: <140 mg/dL before meals <180 mg/dL all other times of the day Blood specimen (specimen) 09/21/2016 9:59 PM EST 09/21/2016 9:59 PM EST Alirio Esparza MD POINT OF CARE TEST ORDERABLES Performing Organization Address [facility]/ZIP Co de Phone Number [facility] [place] [address] * POCT Glucose (09/21/2016 7:26 PM EST) Glucose, POC 152 65 - 199 mg/dL [facility] Comment: Supplemental ranges: <140 mg/dL before meals <180 mg/dL all other times of the day Blood specimen (specimen) 09/21/2016 7:26 PM EST 09/21/2016 7:26 PM EST Alirio Esparza MD POINT OF CARE TEST ORDERABLES Performing Organization Address City/[facility]/ZIP Co de Phone Number [facility] [place] [address] * POCT Glucose (09/21/2016 6:00 PM EST) Glucose, POC 146 65 - 199 mg/dL [facility] Comment: Supplemental ranges: <140 mg/dL before meals <180 mg/dL all other times of the day Blood specimen (specimen) 09/21/2016 6:00 PM EST 09/21/2016 6:00 PM EST Alirio Esparza MD POINT OF CARE TEST ORDERABLES [facility] [place] [address] * (ABNORMAL) BLOOD GAS 2 ARTERIAL (09/21/2016 4:42 PM EST) pH, Arterial 7.35(L) 7.35 - 7.45 [facility] [...] [facility] FIO2 Art 40 % [facility] PF Ratio Art 270 [facility] Blood specimen (specimen) 09/21/2016 4:42 PM EST 09/21/2016 4:42 PM EST Alirio Esparza MD POINT OF CARE TEST ORDERABLES Performing Organization Address City/[facility]/ZIP Co de Phone Number [facility] [place] [address] * POCT Glucose (09/21/2016 4:07 PM EST) Glucose, POC 150 65 - 199 mg/dL [facility] Comment: Supplemental ranges: <140 mg/dL before meals <180 mg/dL all other times of the day Blood specimen (specimen) 09/21/2016 4:07 PM EST 09/21/2016 4:07 PM EST Alirio Esparza MD POINT OF CARE TEST ORDERABLES Performing Organization Address [facility] Co de Phone Number [facility] [place] [address] * (ABNORMAL) Hemoglobin (09/21/2016 4:05 PM EST) Hemoglobin 9.9(L) 11.7 - 15.5 gm/dL [facility] Blood specimen (specimen) 09/21/2016 4:05 PM EST 09/21/2016 4:20 PM EST Narrative Resulting Agency Comment Spec In Lab Alirio Esparza MD HEMATOLOGY ORDERABL ES Performing Organization Address City/[facility]/ZIP Co de Phone Number [facility] [place] [address] * Potassium (09/21/2016 4:05 PM EST) Potassium [...] [facility] [place]/ZIP Co de Phone Number [facility] [place] [address] * POCT Glucose (09/21/2016 2:52 PM EST) Glucose, POC 117 65 - 199 mg/dL [facility] Comment: Supplemental ranges: <140 mg/dL before meals <180 mg/dL all other times of the day Blood specimen (specimen) 09/21/2016 2:52 PM EST 09/21/2016 2:52 PM EST Alirio Esparza MD POINT OF CARE TEST ORDERABLES Performing Organization Address [facility]/ZIP Co de Phone Number [facility] [place] [address] * POCT Glucose (09/21/2016 1:51 PM EST) Glucose, POC 108 65 - 199 mg/dL [facility] Comment: Supplemental ranges: <140 mg/dL before meals <180 mg/dL all other times of the day Blood specimen (specimen) 09/21/2016 1:51 PM EST 09/21/2016 1:51 PM EST Alirio Esparza MD POINT OF CARE TEST ORDERABLES Performing Organization Address City/[facility]/ZIP Co de Phone Number [facility] [place] [address] * POCT Glucose (09/21/2016 12:54 PM EST) [...] [facility] [address] [place] [address] * EKG 12 Lead (09/21/2016 12:26 PM EST) Ventricular rate 87 BPM MUSE SYSTEM Atrial Rate 87 BPM MUSE SYSTEM P-R Interval 256 ms MUSE SYSTEM QRS Duration 90 ms MUSE SYSTEM Q-T Interval 406 ms MUSE SYSTEM QTC Calculated (Bezet) 488 ms MUSE SYSTEM Calculated P [place] 24 degrees MUSE SYSTEM Calculated R [place] 21 degrees MUSE SYSTEM Calculated T [place] -5 degrees MUSE SYSTEM INTERPRETATION Sinus rhythm [...] course of the esophagus and below the [id number]. There is a right IJ PA catheter [...] the course of theesophagus and below the [id number]-[id number]. There is a right IJ PA catheter [...] [facility] FIO2 Art 100 % [facility] PF Ratio Art 356 [facility] Blood specimen (specimen) 09/21/2016 12:20 PM EST 09/21/2016 12:20 PM EST Alirio Esparza MD POINT OF CARE TEST ORDERABLES Performing Organization Address City/State/[facility] Co de Phone Number [facility] [place] [address] * (ABNORMAL) BLOOD GAS 2 ARTERIAL (09/21/2016 [...] [facility] FIO2 Art 95 % [facility] Flow Art 0.[address] [facility] PF Ratio Art 313 [facility] Temp Art 36.[address] [facility] Blood specimen (specimen) 09/21/2016 10:54 AM EST 09/21/2016 10:54 AM EST Alirio Esparza MD POINT OF CARE TEST ORDERABLES [facility] [place] [address] * Thrombin time (09/21/2016 10:50 AM EST) [...] [facility] [place]/ZIP Co de Phone Number [facility] [place] [address] * Fibrinogen (09/21/2016 10:50 AM EST) Pathologist [facility] Fibrinogen 228 180 - 510 mg/dL [facility] [...] [facility] [place] [address] * APTT (09/21/2016 10:50 AM EST) Partial [...] ORDERABLE S Performing Organization Address [facility] Co de Phone Number [facility] [place] [address] * (ABNORMAL) Prothrombin Time (09/21/2016 10:50 AM [...] ORDERABLE S Performing Organization Address [facility] Co de Phone Number [facility] [place] [address] * (ABNORMAL) Hemogram (09/21/2016 10:50 AM EST) [facility] NRBC% auto 0.1 % [facility] NRBC Absolute 0.020(H) 0.000 - 0.000 x10(3)/mc L [facility] Blood specimen (specimen) 09/21/2016 10:50 AM EST 09/21/2016 10:56 AM EST Narrative Resulting Agency Comment Spec In Lab Luis Enrique Quarles MD HEMATOLOGY ORDERABLE S Performing Organization Address City/[facility] Co de Phone Number [facility] [place] [address] * Prepare Platelets, Apheresis (09/21/2016 10:30 AM EST) Pathologist [facility] Dispensed? Yes [facility] Blood specimen (specimen) 09/21/2016 10:30 AM EST 09/21/2016 10:28 AM EST Alirio Esparza MD BLOOD BANK PRODUCT ORDERABLES Performing Organization Address City/[facility]/ZIP Co de Phone Number [facility] [place] [address] * (ABNORMAL) BLOOD GAS 2 ARTERIAL (09/21/2016 10:05 AM EST) pH, Arterial 7.33(L) 7.35 - 7.45 [facility] PCO2, Arterial 54(Critic al) 35 - 45 mmHg [facility] Comment:Noted by precision instrument maker. PO2, Arterial 218(H) 85 - [...] [facility] Comment: Noted by precision instrument maker. Please note: Patients with WBC [...] [facility] Temp Art 37.[address] [facility] Blood specimen (specimen) 09/21/2016 10:05 AM EST 09/21/2016 10:05 AM EST Alirio Esparza MD POINT OF CARE TEST ORDERABLES [facility] [place] [address] * (ABNORMAL) BLOOD GAS 2 ARTERIAL (09/21/2016 9:44 AM EST) pH, Arterial 7.22(Criti gabrielle) 7.35 - 7.45 [facility] Comment:Noted by precision instrument maker. PCO2, Arterial 70(Critica l) 35 - 45 mmHg [facility] Comment:Noted by precision instrument maker. PO2, Arterial 224(H) 85 - [...] TEST ORDERABLES Performing Organization Address [facility] Phone Number [facility] [place] [address] * (ABNORMAL) Hemoglobin (09/21/2016 9:42 AM EST) Hemoglobin 7.2(L) 11.7 - 15.5 gm/dL [facility] Blood specimen (specimen) 09/21/2016 9:42 AM EST 09/21/2016 9:51 AM EST Narrative Resulting Agency Comment Spec In Lab Alirio Esparza MD HEMATOLOGY ORDERABL ES Performing Organization Address [facility] Number [facility] [place] [address] * Platelet count (09/21/2016 9:42 AM EST) Platelet 159 145 - 357 x10(3)/mc L [facility] Immature Plt % 1.6 0.0 - 7.4 % [facility] Comment: Limitation of the Immature Platelet Fraction (IPF)-May be less reliable when the platelet count is less than 33d680/uL due to statistical imprecision. The IPF value [...] in a decreased state of production. References: [employer] The Clinical Value of the Immature Platelet Fraction (IPF) in Cell Recovery Document Number 10-1143 12/2010 [employer] The Role of the Immature Platelet Fraction (IPF) in the Differential Diagnosis of Thrombocytopenia, Document MKT-10-1209 V05 P012/13 Blood specimen (specimen) 09/21/2016 9:42 AM EST 09/21/2016 9:51 AM EST Narrative Resulting Agency Comment Spec In Lab Alirio Esparza MD HEMATOLOGY ORDERABL ES Performing Organization Address [facility] Co de Phone Number [facility] [place] [address] * (ABNORMAL) Hematocrit (09/21/2016 9:42 AM EST) [...] ORDERABL ES Performing Organization Address [facility] Co de Phone Number [facility] [place] [address] * Fibrinogen (09/21/2016 9:42 AM EST) Fibrinogen [...] [facility] [place] [address] * (ABNORMAL) BLOOD GAS 2 ARTERIAL (09/21/2016 [...] [facility] Temp Art 37.[address] [facility] Blood specimen (specimen) 09/21/2016 9:10 AM EST 09/21/2016 9:10 AM EST Alirio Esparza MD POINT OF CARE TEST ORDERABLES [facility] [place] [address] * Surgical Pathology Report (09/21/2016 9:09 AM EST) Final Diagnosis [id number] ?Location: 3T The signing pathologist has (i) [...] Esparza MD PATHOLOGY/CYTOLOGY ORDERABLES Performing Organization Address City/[facility]/ZIP Co de Phone Number [facility] [place] [address] * Specimen to Pathology (surgical or derm) (09/21/2016 9:09 AM EST) AP Specimen 09/21/2016 9:09 AM EST 09/21/2016 9:09 AM EST Narrative [facility] - 09/21/2016 9:09 AM EST Specimen requisition ordered. ??Separate Pathology report to follow Alirio Esparza MD PATHOLOGY/CYTOLOGY ORDERABLES Performing Organization Address [facility] [place] [address] * (ABNORMAL) BLOOD GAS 2 ARTERIAL (09/21/2016 [...] [facility] [place] [address] * (ABNORMAL) BLOOD GAS 2 ARTERIAL (09/21/2016 [...] [facility] FIO2 Art 95 % [facility] Flow Art 1.[address] [facility] PF Ratio Art 298 [facility] Temp Art 35.[address] [facility] Blood specimen (specimen) 09/21/2016 8:18 AM EST 09/21/2016 8:18 AM EST Alirio Esparza MD POINT OF CARE TEST ORDERABLES [facility] [place] [address] * Prepare RBC (09/21/2016 7:05 AM EST) Dispensed? Yes [facility] Blood specimen (specimen) 09/21/2016 7:05 AM EST 09/21/2016 7:02 AM EST Alirio Esparza MD BLOOD BANK PRODUCT ORDERABLES [facility] [place] [address] * POCT Glucose (09/21/2016 6:42 AM EST) Glucose, POC 104 65 - 199 mg/dL [facility] Comment: Supplemental ranges: <140 mg/dL before meals <180 mg/dL all other times of the day Blood specimen (specimen) 09/21/2016 6:42 AM EST 09/21/2016 6:42 AM EST Alirio Esparza MD POINT OF CARE TEST ORDERABLES Performing Organization Address [facility] Co de Phone Number [facility] [place] [address] documented in this encounter Visit Diagnoses Diagnosis [...] dose on Wed09/21/16 at 1230, Until Discontinued, [place] teeth, Routine Given 09/25/2016 9:40 AM EST [...] if phenyleprine and/or vasopressin ineffective.Call pager # [phone] if initiated., Routine Rate/Dose Change 09/21/2016 2:27 [...] L/min/M2. Maximum volume 2 L. Call household manager for additional fluid orders: pager #[phone]. Rate/Dose Verify 09/22/2016 10:00 AM EST 10 [...] at 0600)1600 (Due - Provider: Kendall Martínez [facility]) aspirin chewable tablet 81 mg(Linked [...] dose on Wed09/21/16 at 1230, Until Discontinued, [place] teeth, Routine 0900 (Not Given - Provider: [...] start of shift)1022 (Given - Provider: Elsa iMguel RN)2019 (Given - Provider: Federico Apple RN) [...] Routine documented in this encounter Care Teams Ground Operations Superintendent Relationship Specialty Start Date End Date Deborah Quiroga, ANURAG PCP - General Family Medicine 03/24/16 02/04/23 documented as of this encounter
--- OUTSIDE RECORDS SUMMARY | 2024-07-15 12:33 | XMS_ITS | Encounter Summary ---
Author Organization [facility] Address [facility] [place] [address] Care Team Providers Care Dry Primer Powder Blender Name Role Phone Deborah Quiroga ANURAG Primary Care Provider [phone] Encounter Details Date Type Department Care Team (Late st Contact Info) Description 07/21/2017 Orders Only Hematology [place] [address] Alexandrea Greenwood RN Other neutropenia [...] 12:00 PM EDT Appointment [place] [address] 11/02/2024 1:00 PM EDT Office [place] [address] Magdalena Peralta MD [facility] [place] [address] 03/01/2025 4:15 PM EDT Office Visit Dermatology at [address] [phone] Marek Bonilla MD [address], [place] [address] documented as of this encounter Visit Diagnoses Diagnosis Other neutropenia documented in this encounter Care Teams Dry Primer Powder Blender Relationship Specialty Start Date End Date Deborah Quiroga APRN PCP - General Family Medicine 03/24/16 02/04/23 documented as of this encounter
--- OUTSIDE RECORDS SUMMARY | 2024-07-15 12:33 | XMS_ITS | Encounter Summary ---
Author Organization [facility] Address [facility] [place] [address] Care Team Providers Care Diamond Blender Name Role Phone Junaid, Deborah Shields APRN Primary Care Provider [phone] Reason for Visit * Reason Comments Schedule Office Case Pain right leg Encounter Details Date Type Department Care Team (Late st Contact Info) Description 12/11/2016 9:00 AM EDT Office Visit Hematology [place] [address] Markel Borjas MD [facility] [address] [place] [address] Neutropenia, unspecified type Social History Tobacco Use [...] 12/11/2016 9:00 AM EDT Hematology Outpatient Clinic [facility] Hematology [...] TOUCH PREP, CLOT SECTION, CORE ??BIOPSY); [OSR# [id number], COLLECTED 06/23/2016, 19 SLIDES]: ?1. ??Normocellular marrow [...] a clonal lymphoproliferative or myeloproliferative disorder (OSR# [id number]) Chromosome analysis on the marrow aspirate revealed [...] intact. Extremities: No edema. Labs: Hgb= 13 Tzxq=605 ANC= 0.5 Imaging As above - reviewed [...] 11/02/2024 12:00 PM EDT Appointment [place] [address] 11/02/2024 1:00 PM EDT Office [place] [phone] Magdalena Peralta MD [facility] [place] [address] 03/01/2025 4:15 PM EDT Office Visit Dermatology at [place] [address] [place] [phone] Marek Bonilla MD [address] [facility], [place] [address] documented as of this encounter [...] type documented in this encounter Care Teams Diamond Blender Relationship Specialty Start Date End Date Deborah Quiroga APRN PCP - General Family Medicine 03/24/16 02/04/23 documented as of this encounter
--- OUTSIDE RECORDS SUMMARY | 2024-07-15 12:33 | XMS_ITS | Encounter Summary ---
Author Organization [facility] Address [facility] [place] [address] Care Team Providers Care Childcare Attendant Name Role Phone Deborah Quiroga APRN Primary Care Provider Encounter Details Date Type Department Care Team (Late st Contact Info) Description 06/18/2017 11:00 AM EST Office Visit Hematology [place] [address] Markel Borjas MD [facility] [address] [place] [address] Neutropenia, unspecified type Social History Tobacco Use [...] 11:00 AM EST Hematology Outpatient Clinic [facility] Hematology Outpatient Consult Note CC: [...] TOUCH PREP, CLOT SECTION, CORE ??BIOPSY); [OSR# [id number], COLLECTED 06/23/2016, 19 SLIDES]: ?1. ??Normocellular marrow [...] a clonal lymphoproliferative or myeloproliferative disorder (OSR# [id number]) Chromosome analysis on the marrow aspirate revealed [...] working the same job and participating in [email or web address] patients. Past Medical/Surgical History: 1. Leukopenia -element of neutropenia, as noted above 2. Aortic Stenosis -severe -AVR surgery 3. Hypercholesterolemia 4. Depression 5. Hypertension 6. 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 Extremities: No edema. Labs: Hgb= 13 Ynxv=933 ANC= 0.6 Imaging As above - reviewed [...] PM EDT Appointment [place] [address] 11/02/2024 1:00 PM EDT Office [place] [address] Magdalena Peralta MD [facility] [place] [address] 03/01/2025 4:15 PM EDT Office Visit Dermatology at [place] [address] [place] [address] Marek Bonilla MD [address], [place] [address] DERMATOLOGY [place], [place] [phone] documented as of this encounter Visit Diagnoses Diagnosis Neutropenia, unspecified type documented in this encounter Care Teams Childcare Attendant Relationship Specialty Start Date End Date Deborah Quiroga APRN PCP - General Family Medicine 03/24/16 02/04/23 documented as of this encounter
--- OUTSIDE RECORDS SUMMARY | 2024-07-15 12:34 | XMS_ITS | Encounter Summary ---
Author Organization Replaced By [facility] Address [facility] [place] [address] Care Team Providers Care Crochet Machine Operator Name Role Phone Deborah Quirgoa ANURAG Primary Care Provider +1 [phone] Encounter Details Date Type Department Care Team (Latest Contact Info) Description 05/19/2016 11:20 AM EDT Laboratory [place] [phone] Nonrheumatic aortic valve stenosis Social History Tobacco [...] 11/02/2024 12:00 PM EDT Appointment [place] [phone] 11/02/2024 1:00 PM EDT Office [place] [address] Magdalena Peralta MD [facility] [place] [address] 03/01/2025 4:15 PM EDT Office Visit Dermatology at [address] [phone] Marke Bonilla MD [address] [place] [address] RD, [place] [address] documented as of this encounter Procedures Procedure Name Priority Date/Time Associated Diagnosis Comments SCAN, PERIPHERAL BLOOD Routine 05/19/2016 11:32 AM EDT HEMOGRAM Routine 05/19/2016 11:32 AM EDT Nonrheumatic aortic valve stenosis DIFFERENTIAL, AUTOMATED Routine 05/19/2016 11:32 AM EDT Nonrheumatic aortic valve stenosis TYPE AND SCREEN, SDP (FUTURE SURGERY, [facility] [place]) Routine 05/19/2016 [...] (05/19/2016 11:32 AM EDT) Plat estimate Normal [facility] RBC Morphology Normal [facility] Blood specimen (specimen) 05/19/2016 11:32 AM EDT 05/19/2016 11:41 AM EDT Narrative Resulting Agency Comment Spec In Lab Alirio Esparza MD HEMATOLOGY ORDERABL ES [facility] [place] [address] * (ABNORMAL) Differential, Automated (05/19/2016 11:32 AM EDT) Neutrophil % 25.9 % [facility] Neutrophil Absolute 0.42(Crit ical) 1.70 - 6.10 x10(3)/[facility] Comment: This result has been called to DR ALIRIO ESPARZA by Alivia Ibarra on 05 19 2016 at 1228, and has been read back. Lymph % 59.9 % [facility] Lymphocytes Abs 1.0 0.9 - 3.2 x10(3)/[facility] Monocyte % 13.0 % [facility] Monocyte Abs 0.2(L) 0.3 - 0.9 x10(3)/[facility] Eos % 0.6 % [facility] Eosinophils Abs 0.0 0.0 - 0.4 x10(3)/[facility] Basophil % 0.6 % [facility] Baso Absolute 0.0 0.0 - 0.1 x10(3)/[facility] Immature Gran % 0.00 % [facility] Comment: Immature granulocytes(IG's)percentage and absolute count will include metamyelocytes, myelocytes, and promyelocytes. Blood smears from CBCs yielding IG's will be scanned manually for concordance. If this scan disagrees with the automated IG or if promyelocytes are noted, a manual differential will be performed. Immature Gran Absolute 0.00 0.00 - 0.04 x10(3)/ L [facility] Blood specimen (specimen) 05/19/2016 11:32 AM EDT 05/19/2016 11:41 AM EDT Narrative Resulting Agency Comment Spec In Lab Alirio Esparza MD HEMATOLOGY ORDERABL ES [facility] [place] [address] * (ABNORMAL) Hemogram (05/19/2016 11:32 AM EDT) [...] RDW Standard Deviation 40.5 37.0 - 46.0 [facility] RDW coefficient of variation 11.5 11.5 - 14.1 % [facility] Mean Platelet Volume 8.4 7.6 - 12.9 fL [facility] NRBC% auto 0.0 % [facility] NRBC Absolute 0.000 0.000 - 0.000 x10(3)/mc L [facility] Blood specimen (specimen) 05/19/2016 11:32 AM EDT 05/19/2016 11:41 AM EDT Narrative Resulting Agency Comment Spec In Lab Alirio Esparza MD HEMATOLOGY ORDERABL ES [facility] [place] [address] * Antibody screen (05/19/2016 11:32 AM EDT) Ab Screen Interp Negative [facility] Expires at [id number] on: 07/03/2016 [facility] Comment: Corrected from 06/11/16 12:00 [Unknown] on 06/09/16 05:51 by Bethanie Tomlinson I.. Corrected from 07/03/16 12:00 [Unknown] on 05/21/16 06:00 by Shelia Barrera Blood specimen (specimen) 05/19/2016 11:32 AM EDT 05/19/2016 11:35 AM EDT Narrative Resulting Agency Comment Spec In Lab Alirio Esparza MD BLOOD BANK LAB BETH ORTEGAROMERO [facility] [place] [address] * ABO/Rh Typing (05/19/2016 11:32 AM EDT) Pathologist [facility] ABORH Type B Pos [facility] Blood specimen (specimen) 05/19/2016 11:32 AM EDT 05/19/2016 11:35 AM EDT Narrative Resulting Agency Comment Spec In Lab Alirio Esparza MD BLOOD BANK LAB BETH ALEJO Performing Organization Address City/[facility]/ZIP Co de Phone Number [facility] [place] [address] * Basic Metabolic Panel (non-fasting) (05/19/2016 11:32 AM EDT) [facility] Glucose 86 65 - 199 mg/dL [facility] Comment:Diabetes: >=200 mg/d L plus symptoms Blood Urea Nitrogen 13 8 - 18 mg/dL [facility] Creatinine 0.95 0.70 - 1.20 mg/dL [facility] Comment: Please note that the pediatric reference intervals supplied above were not validated at [facility]. Results from pediatric patients should be [...] the following links into your internet browser. [email or web address] Blood specimen (specimen) 05/19/2016 11:32 AM EDT 05/19/2016 11:41 AM EDT Narrative Resulting Agency Comment Spec In Lab Alirio Esparza MD CHEMISTRY ORDERABLE S [facility] [place] [address] documented in this encounter Visit Diagnoses Diagnosis Nonrheumatic aortic valve stenosis Aortic valve disorders documented in this encounter Care Teams Crochet Machine Operator Relationship Specialty Start Date End Date Deborah Quiroga, ANURAG PCP - General Family Medicine 03/24/16 02/04/23 documented as of this encounter
--- OUTSIDE RECORDS SUMMARY | 2024-07-15 12:34 | XMS_ITS | Encounter Summary ---
Author Organization [facility] Address [facility] [place] [address] Care Team Providers Care Supervisor Coil Winding Name Role Phone Deborah Quiroga ANURAG Primary Care Provider +1 [phone] Encounter Details Date Type Department Care Team (Late st Contact Info) Description 07/31/2016 External Results Hematology [place] [address] Alexandrea Greenwood RN Neutropenia, unspecified [...] 11/02/2024 12:00 PM EDT Appointment [place] [address] 11/02/2024 1:00 PM EDT Office Visit [place] [address] Magdalena Peralta MD [facility] [place] [address] 03/01/2025 4:15 PM EDT Office Visit Dermatology at [address] [address] Marek Bonilla MD [address], [place] [address] documented as of this encounter Procedures Procedure [...] documented in this encounter Care Teams Supervisor Coil Winding Relationship Specialty Start Date End Date Deborah Quiroga APRN PCP - General Family Medicine 03/24/16 02/04/23 documented as of this encounter
--- OUTSIDE RECORDS SUMMARY | 2024-07-15 12:34 | XMS_ITS | Encounter Summary ---
Author Organization [facility] Address [facility] [place] [address] Care Team Providers Care Nail Making Machine Tender Name Role Phone Deborah Quiroga APRN Primary Care Provider +1 [phone] Encounter Details Date Type Department Care Team (Latest Contact Info) Description 05/19/2016 11:52 AM EDT - 05/19/2016 11:59 PM EDT Hospital Encounter XRay at [address] [place] [address] Alirio Esparza MD Nonrheumatic aortic valve stenosis [...] 11/02/2024 12:00 PM EDT Appointment [place] [address] 11/02/2024 1:00 PM EDT Office [place] [address] Magdalena Peralta MD [facility] [place] [address] 03/01/2025 4:15 PM EDT Office Visit Dermatology at [place] [address] [place] [address] Marek Bonilla MD [address], [place] [address] documented as of this encounter Procedures Procedure [...] disorders documented in this encounter Care Teams Nail Making Machine Tender Relationship Specialty Start Date End Date Deborah Quiroga, PIE MAKER MACHINE PCP - General Family Medicine 03/24/16 02/04/23 documented as of this encounter
--- OUTSIDE RECORDS SUMMARY | 2024-07-15 12:34 | XMS_ITS | Encounter Summary ---
Author Organization [facility] [place] [address] Care Team Providers Care Pasting Machine Operator Name Role Phone Junaid, Deborah Shields APRN Primary Care Provider [phone] [phone] Encounter Details Date Type Department Care Team (Late st Contact Info) Description 05/19/2016 10:00 AM EDT Office [place] [phone] Alirio Esparza MD Nonrheumatic aortic valve stenosis [...] PM EDT [place]oint[place] [address] 11/02/2024 1:00 PM EDT Office [place] [address] Magdalena Peralta MD [facility] [address] 03/01/2025 4:15 PM EDT Office Visit Dermatology at [address] [place] [phone] Marek Bonilla MD [address], [place] [address] documented as of this encounter Results * [...] (Bezet) 448 ms MUSE SYSTEM Calculated P [place] 37 degrees MUSE SYSTEM Calculated R [place] 31 degrees MUSE SYSTEM Calculated T [place] 25 degrees MUSE SYSTEM INTERPRETATION Normal sinus [...] LABORATORY Creatinine 0.95 0.70 - 1.20 mg/dL [facility] [...] the following links into your internet browser. [email or web address] Blood specimen (specimen) 05/19/2016 11:32 AM EDT 05/19/2016 11:41 AM EDT Narrative Resulting Agency Comment Spec In Lab Alirio Esparza MD CHEMISTRY ORDERABLE S [facility] [place] [address] documented in this encounter Visit Diagnoses Diagnosis Nonrheumatic aortic valve stenosis Aortic valve disorders Nonrheumatic aortic valve stenosis Aortic valve disorders documented in this encounter Care Teams Pasting Machine Operator Relationship Specialty Start Date End Date Deborah Quiroga APRN PCP - General Family Medicine 03/24/16 02/04/23 documented as of this encounter
--- OUTSIDE RECORDS SUMMARY | 2024-07-15 12:34 | XMS_ITS | Encounter Summary ---
Author Organization [facility] [place] [address] Care Team Providers Care Immigration Specialist Name Role Phone Ashley Quirogazac Shields APRN Primary Care Provider [phone] Reason for Visit * Consultation (Urgent) - Closed Specialty Diagnoses / Procedures Referred By Contac t Referred To Contact Cardiac Surgery Diagnoses aortic stenosis, consideration for valve replacement Antelmo Burrell MD [address] [place] [address] [place] [address] Alirio Esparza MD [facility] DR CARDIOTHORACIC [place] [address] Referral ID Status Reason Start Date Expiration Date V isits Requested Visits Authorized [id number] Closed Connection Center 03/04/2016 03/04/2017 1 1 Encounter Details Date Type Department Care Team (Late st Contact Info) Description 03/24/2016 10:40 AM EDT Office [place] [phone] Alirio Esparza MD Aortic valve stenosis, unspecified [...] This is a patient of Antelmo Burrell [facility] Cardiology. Mrs. Thacker is being [...] 30 minute visit, 20 minutes were spent [id number] with the patient discussing aortic stenosis and valve replacement. documented in this encounter Plan of Treatment Upcoming Encounters Date Type Department Care Team (Late st Contact Info) Description 11/02/2024 12:00 PM EDT Appointment [place] [address] 11/02/2024 1:00 PM EDT Office [place] [address] Magdalena Peralta MD [facility] DR [place] [address] 03/01/2025 4:15 PM EDT Office Visit Dermatology at [place] [address] [facility] [place] [phone] Marek Bonilla MD [address], [address] [place] [address] documented as of this encounter Visit Diagnoses Diagnosis Aortic valve stenosis, unspecified etiology documented in this encounter Care Teams Immigration Specialist Relationship Specialty Start Date End Date Deborah Quiroga APRN PCP - General Family Medicine 03/24/16 02/04/23 documented as of this encounter
--- OUTSIDE RECORDS SUMMARY | 2024-07-15 12:34 | XMS_ITS | Encounter Summary ---
[place] [address] Care Team Providers Care Smelter Liner Name Role Phone Ashley Quirogazac Shields APRN Primary Care Provider [phone]- [phone] Encounter Details Date Type Department Care Team (Late st Contact Info) Description 07/03/2016 External Results Hematology [place] [address] Matthew Cervantes, DO [address] [place] [phone] Social History Tobacco Use Types Packs/Day Years [...] 11/02/2024 12:00 PM EDT Appointment [place] [address] 11/02/2024 1:00 PM EDT Office [place] [address] Magdalena Peralta MD [facility] [place] [address] 03/01/2025 4:15 PM EDT Office Visit Dermatology at [place] [address] [place] [address] Marek Bonilla MD [address], [place] [address] documented as of this encounter Procedures Procedure Name Priority Date/Time Associated Diagnosis Comments BONE MARROW ASPIRATION PERFO RMED WITH BONE MARRROW BIOPSY Routine 06/28/2016 documented in this encounter Results * BONE MARROW ASPIRATION PREFORMED WITH BONE MARRROW BIOPSY (06/28/2016) Matthew Cervantes DO [facility]AL [facility] ORDERABLES documented in this encounter Visit Diagnoses Not on filedocumented in this encounter Care Teams Smelter Liner Relationship Specialty Start Date End Date Deborah Quiroga, ANURAG PCP - General Family Medicine 03/24/16 02/04/23 documented as of this encounter
--- OUTSIDE RECORDS SUMMARY | 2024-07-15 12:34 | XMS_ITS | Encounter Summary ---
[place] [address] Care Team Providers Care Electronics Technology Department Chair Name Role Phone Deborah Quiroga APRN Primary Care Provider +1- [phone] Reason for Visit * Reason Onset Date Comments Prior Authorization 09/11/2016 Neulasta Encounter Details Date Type Department Care Team (Late st Contact Info) Description 09/11/2016 Telephone Hematology [place] [phone] Monica Wick Prior Authorization (Neulasta ) Social [...] AM EST Prior Auth for Neulasta (Approved) [facility] is a covered facility under the members plan. ID# [id number] Call placed to [phone] Rationale: Can you please start a PA for this pt to receive as outpatient at [facility] on 09/16/16? 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 ??Her last ANC was 0.56 (or 560) on 08/04/16. ??This will need to be approved through her medical as out patient. J code for neulasta. ?? [id number]. Spoke w/ Anna Marie Call Reference [id number] Copay: $ Deductible is not met, patient will have out of pocket costs until deductible is met. documented in this encounter Plan of Treatment Upcoming Encounters Date Type Department Care Team (Late st Contact Info) Description 11/02/2024 12:00 PM EDT Appointment [place] [address] 11/02/2024 1:00 PM EDT Office [place] [address] [facility] [place] [address] 03/01/2025 4:15 PM EDT Office Visit Dermatology at [place] [address] [place] [address] Marek Bonilla MD [address], [place] [address] documented as of this encounter Visit Diagnoses Not on filedocumented in this encounter Care Teams Electronics Technology Department Chair Relationship Specialty Start Date End Date Deborah Quiroga APRN PCP - General Family Medicine 03/24/16 02/04/23 documented as of this encounter
--- OUTSIDE RECORDS SUMMARY | 2024-07-15 12:34 | XMS_ITS | Encounter Summary ---
[place] [address] Care Team Providers Care Cage Unloader Name Role Phone Junaid, Deborah Shields APRN Primary Care Provider +1- [phone] Reason for Visit * Reason Onset Date Comments Labs Only 09/16/2016 Encounter Details Date Type Department Care Team (Late st Contact Info) Description 09/16/2016 Telephone Hematology [place] [address] Alexandrea Greenwood, RN Labs Only Social History [...] 11:09 AM EST Message received from medical records secretary: Purnima is having her Neulasta done today at [facility]. ??She is wondering if we want to do a CBC prior to the injection? [phone] Borjas: CBC is fine RN spoke with Swapna at [facility] who confirms they can draw CBC on pt today, RN faxed CBC w/diff to [facility] lab at [phone] RN relayed to pt that CBC ordered had been faxed to [facility], pt will have CBC drawn today prior to neulasta injection. documented in this encounter Plan of Treatment Upcoming Encounters Date Type Department Care Team (Late st Contact Info) Description 11/02/2024 12:00 PM EDT Appointment [place] [phone] 11/02/2024 1:00 PM EDT Office [place] [address] Magdalena Peralta MD [facility] [place] [address] 03/01/2025 4:15 PM EDT Office Visit Dermatology at [place] [address] [place] [address] Marek Bonilla MD [address], [facility] [place] [address] documented as of this encounter [...] documented in this encounter Care Teams Cage Unloader Relationship Specialty Start Date End Date Deborah Quiroga APRN PCP - General Family Medicine 03/24/16 02/04/23 documented as of this encounter
--- OUTSIDE RECORDS SUMMARY | 2024-07-15 12:34 | XMS_ITS | Encounter Summary ---
Author Organization [facility] [place] [address] Care Team Providers Care Well Service Floor Worker Name Role Phone Deborah Quiroga APRN Primary Care Provider +1 [phone] Encounter Details Date Type Department Care Team (Late st Contact Info) Description 08/18/2016 Orders [place] [address] Alirio Esparza MD Aortic valve stenosis, unspecified [...] PM EDT Appointment [place] [address] 11/02/2024 1:00 PM EDT Office [place] [address] Magdalena Peralta MD [facility] [place] [address] 03/01/2025 4:15 PM EDT Office Visit Dermatology at [address] [address] Marek Bonilla MD [address], [place] [address] documented as of this encounter Results * [...] the following links into your internet browser. [email or web address] Blood specimen (specimen) 08/18/2016 4:50 PM EST 08/18/2016 5:03 PM EST Narrative Resulting Agency Comment Spec In Lab Alirio Esparza MD CHEMISTRY ORDERABLE S [facility] [place] [place] [address] documented in this encounter Visit Diagnoses Diagnosis Aortic valve stenosis, unspecified etiology documented in this encounter Care Teams Well Service Floor Worker Relationship Specialty Start Date End Date Deborah Quiroga, DUST OPERATOR PCP - General Family Medicine 03/24/16 02/04/23 documented as of this encounter
--- OUTSIDE RECORDS SUMMARY | 2024-07-15 12:34 | XMS_ITS | Encounter Summary ---
[place] [address] Care Team Providers Care Director Game Name Role Phone Deborah Quiroga ANURAG Primary Care Provider +1 [phone] Encounter Details Date Type Department Care Team (Late st Contact Info) Description 09/11/2016 Orders Only Hematology [place] [address] Alexandrea Greenwood RN Social History [...] original note were not included. [facility] [phone] Date: 09/11/16 Patient Name: Purnima Thacker : 1955 Diagnosis: Neutropenia Referral to [site]: [facility] Orders: ? Growth factor: [x] Neulasta 6mg SQ injection x 1 on 09/16/16 Signature: Markel Borjas MD beeper # [id number] Co-signature [if needed]: documented in this encounter Plan of Treatment Upcoming Encounters Date Type Department Care Team (Late st Contact Info) Description 11/02/2024 12:00 PM EDT Appointment [place] [address] 11/02/2024 1:00 PM EDT Office [place] [address] Magdalena Peralta MD [facility] [place] [address] 03/01/2025 4:15 PM EDT Office Visit Dermatology at [place] [address] [facility] [place] [address] Marek Bonilla MD [address], [address] Katherine [place] [address] documented as of this encounter Procedures Procedure Name Priority Date/Time Associated Diagnosis Comments TRANSESOPHAGEAL ECHOCARDIOGRAM (GAVINO) Routine 09/22/2016 documented in this encounter Results * Transesophageal Echocardiogram (GAVINO) (09/22/2016) Anatomical Region Laterality Modality Other 09/22/2016 Narrative 09/22/2016 8:30 AM EST Procedure: ?Transesophageal Echocardiogram Patient: ?ANDREW ECHOLS M ? (Age): 1955(61y) Med Rec#: ? [id number] ?Sex: ?M ? [place] [facility] [place]t / Wt: ??(cm)/ (kg) ? Pt. Loc: ?OR ? Study Date: ?? 09/21/2016 ?Pt. Type: Tape: ? Referring: Alirio Francisco Reading: ComptonHenrik salvador ([id number]) Senior Analytic Consultant: Jacobo Patel ([id number]) Interpreting Fellow: Jacobo Patel ([id number]) Diagnosis: *Aortic valve disorders (424.1) CPT Codes: *Echo GAVINO Full (12130) Indication: ?? AVR for severe Rhythm: ? [...] ? Mid-Inferior ?Normal ? Mid-Inferoseptal ?Normal ? [place]-Septal ? Normal ? [place]-Anterior ? Normal ? [place]-Lateral ?Normal ? [place]-Inferior ? Normal ? [place]-Tip ?Normal ? This report has been electronically signed by: Henrik Yarbrough M.D. ? 09/22/2016 08:30:41 Images reviewed and interpretation verified [facility] Cardiac Ultrasound Laboratory Procedure Note Henrik Yarbrough MD - 09/22/2016 Procedure: Transesophageal Echocardiogram Patient: ANDREW Mejias (Age): 1955(61y) Med Rec#: [id number] Sex: M [place] Loc[place] [facility] Ht / Wt: (cm)/ (kg) Pt. Loc: OR Study Date: 09/21/2016 Pt. Type: Tape: Referring: Alirio Francisco Reading: Henrik Yarbrough ([id number]) Senior Analytic Consultant: Jacobo Patel ([id number]) Interpreting Fellow: Jacobo Patel ([id number]) Diagnosis: *Aortic valve disorders (424.1) CPT Codes: *Echo GAVINO Full (59878) Indication: AVR for severe Rhythm: Sinus SUMMARY: [...] Normal Mid-Posterolateral Normal Mid-Inferior Normal Mid-Inferoseptal Normal [place]-Septal Normal [place]-Anterior Normal [place]-Lateral Normal [place]-Inferior Normal [place]-Tip Normal This report has been electronically signed by: Henrik Yarbrough M.D. 09/22/2016 08:30:41 Images reviewed and interpretation verified [facility] Cardiac Ultrasound Laboratory Unknown ECHO ORDERABLES documented in this encounter Visit Diagnoses Not on filedocumented in this encounter Care Teams Director Game Relationship Specialty Start Date End Date Deborah Quiroga APRN PCP - General Family Medicine 03/24/16 02/04/23 documented as of this encounter
--- OUTSIDE RECORDS SUMMARY | 2024-07-15 12:34 | XMS_ITS | Encounter Summary ---
Author Organization [facility] [place] [address] Care Team Providers Care Appliance Assembler Name Role Phone JerelPasqualeSofiaemiliano Garcia APRN Primary Care Provider +1 -[phone] Encounter Details Date Type Department Care Team (Latest Contact Info) Description 11/12/2014 8:10 AM EDT - 11/12/2014 11:59 PM EDT Hospital [place] [phone] CLINIC, DR ABE Burrell, Antelmo Porter MD [facility] [address] [place], [place] [address] Discharge Disposition: Home Social History Tobacco Use [...] 11/02/2024 12:00 PM EDT Appointment [place] [address] 11/02/2024 1:00 PM EDT Office [place] [address] Magdalena Peralta MD [facility] DR RHEUMATOLOGY DEPT [place], [place] [address] 03/01/2025 4:15 PM EDT Office Visit Dermatology at [place] [address] [place] [address] Marek Bonilla MD [address], [place] [address] documented as of this encounter Procedures Procedure [...] mLs documented in this encounter Care Teams Appliance Assembler Relationship Specialty Start Date End Date Sofia Beltrán APRN [address] [place] [address] PCP - General 11/12/14 03/23/16 documented as of this encounter
--- OUTSIDE RECORDS SUMMARY | 2024-07-15 12:34 | XMS_ITS | Encounter Summary ---
[place] [address] Care Team Providers Care Fairing Man Name Role Phone Ashley Quirogan Cornelius ANURAG Primary Care Provider +1- [phone] Reason for Visit * Reason Onset Date Comments Medication Management 09/14/2016 Encounter Details Date Type Department Care Team (Late st Contact Info) Description 09/14/2016 Telephone Hematology [place] [address] Alexandrea Greenwood, php magento developer Management Social History Tobacco Use Types [...] 9:12 AM EST Message received from medical assistant secretary: Purnima called, asking for clarification [...] PM EDT Appointment [place] [address] 11/02/2024 1:00 PM EDT Office [place] [address] Magdalena Peralta MD [facility] [place] [address] 03/01/2025 4:15 PM EDT Office Visit Dermatology at [place] [address] [place] [address] Marek Bonilla MD [address], [place] [address] documented as of this encounter Visit Diagnoses Not on filedocumented in this encounter Care Teams Fairing Man Relationship Specialty Start Date End Date Deborah Quiroga APRN PCP - General Family Medicine 03/24/16 02/04/23 documented as of this encounter
--- OUTSIDE RECORDS SUMMARY | 2024-07-15 12:34 | XMS_ITS | Encounter Summary ---
Author Organization Replaced By [facility] Address [facility] [place] [address] Care Team Providers Care Mechanic/Welder Name Role Phone Junaid, Deborah Shields APRN Primary Care Provider [phone] [phone] Reason for Visit * Auth/Cert Specialty Diagnoses / Procedures Referred By Crispin t Referred To Contact Diagnoses AVS Procedures CARDIAC CATHETERIZATION Referral ID Status Reason Start Date Expiration Date Visits Re quested Visits Authorized [id number] 1 1 Encounter Details Date Type Department Care Team (Late st Contact Info) Description 06/03/2016 7:30 AM EDT - 06/03/2016 8:30 AM EDT [place] [address] Mario Alberto Escobedo MD [facility] [place] [address] CARDIAC CATHETERIZATION Social History Tobacco Use Types [...] by your doctor, do not take any ckxt-onb-qwhavxr medicinesor herbal preparations without first discussing this with your doctor or pharmacist. There is the possibility of side effects and interactions when these are combined. Follow Up Care Who to call with questions or problems If there are any questions or problems that you think might be related to your cardiac cath or angioplasty, contact the hollock maker peoplesoft financials consultant by calling [facility] at . * Patient Instructions* Felicia Corrigan - 06/03/2016 9:33 AM EDT Cardiology Instructions Call your doctor if: Chest pain, dyspnea, pain or swelling in legs occurs. If you have non-emergent questions between now and the time of your follow up appointments: -During 8am-5pm Wednesday through Wednesday call [phone] to speak with a nurse in the cardiology clinic -All other times call [phone] and ask to speak to the hat body sorter peoplesoft financials consultant. MEDICATIONS - restart your spironolactone, discontinue [...] Appointments: Primary care provider: Cardiology: Deborah Hahn, SHOE CLERK [phone] Follow up as planned or as needed. Dr. Esparza [phone] Other follow-up appointment: Hematology - Dr. Mario [...] 11/02/2024 12:00 PM EDT Appointment [place] [address] 11/02/2024 1:00 PM EDT Office Visit [place] [address] Magdalena Peralta MD [facility] [place] [address] 03/01/2025 4:15 PM EDT Office Visit Dermatology at [place] [address] [place] [address] Marek Bonilla MD [address], [place] [address] documented as of this encounter Procedures Procedure [...] Escobedo MD CHEMISTRY ORDERABLES Performing Organization Address City/[facility]/ZIP Co de Phone Number [facility] [place] [address] * Methylmalonic acid, serum (06/03/2016 11:45 AM EDT) Methylmalonic Acid (NOVEMBER) 0.21 <=0.40 nmol/mL [facility] Comment: Test Performed by: [address] [address] Customer Account Specialist: Raymond Chaudhry II, M.D., Ph.D. Blood specimen (specimen) 06/03/2016 11:45 AM EDT 06/03/2016 1:57 PM EDT Narrative Resulting Agency Comment Spec In Lab Mario Alberto Escobedo MD LAB SEND OUT ORDERAB LES Performing Organization Address City/[facility]/ZIP Co de Phone Number [facility] [place] [address] * Granulocyte Antibody (06/03/2016 11:45 AM EDT) Pathologist [facility] Granulocyte Ab (MAY) Negative Not Applicable [facility] Comment: ADDITIONAL INFORMATION Method: Immunofluorescent Assay Performing Laboratory CLIA# [id number] This test was developed and its performance characteristics determined by [facility] in a manner consistent with CLIA requirements. This test has not been cleared or approved by the U.S. Food and Drug Administration. Test Performed by: [place] [address] Customer Account Specialist: Raymond Chaudhry II, M.D., Ph.D. Blood specimen (specimen) 06/03/2016 11:45 AM EDT 06/03/2016 1:57 PM EDT Narrative Resulting Agency Comment Spec In Lab Mario Alberto Escobedo MD LAB SEND OUT ORDERAB LES Performing Organization Address City/[facility]/ZIP Co de Phone Number [facility] [place] [address] * TSH (06/03/2016 11:45 AM EDT) Pathologist [facility] Thyroid Stimulating Hormone 2.18 0.27 - 4.20 mcIU/mL [facility] Blood specimen (specimen) 06/03/2016 11:45 AM EDT 06/03/2016 12:11 PM EDT Narrative Resulting Agency Comment Spec In Lab Mario Alberto Escobedo MD CHEMISTRY ORDERABLES Performing Organization Address City/[facility]/ZIP Co de Phone Number [facility] [place] [address] * Homocysteine Total, Plasma (06/03/2016 11:45 AM EDT) Homocystine 9 <=15 mcmol/L [facility] Blood specimen (specimen) 06/03/2016 11:45 AM EDT 06/03/2016 12:11 PM EDT Narrative Resulting Agency Comment Spec In Lab Mario Alberto Escobedo MD CHEMISTRY ORDERABLES Performing Organization Address City/[facility]/ZIP Co de Phone Number [facility] [place] [address] * Folate, serum (06/03/2016 11:45 AM EDT) Folate >20.0 4.8 - 24.2 ng/mL [facility] Blood specimen (specimen) 06/03/2016 11:45 AM EDT 06/03/2016 12:04 PM EDT Narrative Resulting Agency Comment Spec In Lab Mario Alberto Escobedo MD CHEMISTRY ORDERABLES Performing Organization Address [facility] Co de Phone Number [facility] [place] [address] * (ABNORMAL) Sedimentation rate (06/03/2016 11:45 AM EDT) Sedimentation Rate Automated 41(H) 0 - 20 mm/hr [facility] Blood specimen (specimen) 06/03/2016 11:45 AM EDT 06/03/2016 12:04 PM EDT Narrative Resulting Agency Comment Spec In Lab Mario Alberto Escobedo MD HEMATOLOGY ORDERABLE S Performing Organization Address City/[facility]/ZIP Co de Phone Number [facility] [place] [address] * Lactate Dehydrogenase (06/03/2016 11:45 AM EDT) Lactate Dehydrogenase 164 110 - 220 unit/L [facility] Blood specimen (specimen) 06/03/2016 11:45 AM EDT 06/03/2016 12:11 PM EDT Narrative Resulting Agency Comment Spec In Lab Mario Alberto Escobedo MD CHEMISTRY ORDERABLES Performing Organization Address City/[facility]/ZIP Co de Phone Number [facility] [place] [address] * Comprehensive metabolic panel (non-fasting) (06/03/2016 11:45 [...] the following links into your internet browser. [email or web address] Blood specimen (specimen) 06/03/2016 11:45 AM EDT 06/03/2016 12:11 PM EDT Narrative Resulting Agency Comment Spec In Lab Mario Alberto Escobedo MD CHEMISTRY ORDERABLES Performing Organization Address City/State/[facility] Co de Phone Number [facility] [place] [address] documented in this encounter Visit Diagnoses Diagnosis [...] Hernandez) documented in this encounter Care Teams Mechanic/Welder Relationship Specialty Start Date End Date Deborah Quiroga, SHOE CLERK PCP - General Family Medicine 03/24/16 02/04/23 documented as of this encounter
--- OUTSIDE RECORDS SUMMARY | 2024-07-15 12:34 | XMS_ITS | Encounter Summary ---
[place] [address] Care Team Providers Care Rn Appeals Name Role Phone Deborah Quiroga ANURAG Primary Care Provider +1- [phone] Reason for Visit * Reason Onset Date Comments Medical Care Coordination 07/17/2016 Encounter Details Date Type Department Care Team ([facility] Contact Info) Description 07/17/2016 Telephone Hematology [place] [address] Alexandrea Greenwood RN Medical Care Coordination Social [...] 07/17/2016 12:07 PM EST Message received from line tester: Injection/Infusion Referral Call placed to [phone]). Spoke w/ Pasquale. Services to be provided for pt are: Labs @ 10am ([facility]) & [facility] @ 11am on 07/20/16, CBC only on 07/30/16 Pasquale confirmed they would provide services to pt and I left [place] for pt to call for appt info. Pt demographics, office note, med list and orders faxed to [facility] & [facility] documented in this encounter Plan of Treatment Upcoming Encounters Date Type Department Care Team (Late st Contact Info) Description 11/02/2024 12:00 PM EDT Appointment [place] [address] 11/02/2024 1:00 PM EDT Office [place] [address] Magdalena Peralta MD [facility] [place] [address] 03/01/2025 4:15 PM EDT Office Visit Dermatology at [place] [address] [place] [address] Marek Bonilla MD [address], [address] [place] [address] documented as of this encounter Visit Diagnoses Not on filedocumented in this encounter Care Teams Rn Appeals Relationship Specialty Start Date End Date Deborah Quiroga APRN PCP - General Family Medicine 03/24/16 02/04/23 documented as of this encounter
--- OUTSIDE RECORDS SUMMARY | 2024-07-15 12:34 | XMS_ITS | Encounter Summary ---
Author Organization [facility] [place] [address] Care Team Providers Care Brim Presser Name Role Phone Ashley Quirogan Cornelius ANURAG Primary Care Provider +1 [phone] Encounter Details Date Type Department Care Team (Late st Contact Info) Description 03/24/2016 Notes [place] [address] Alfa Lua Social History Tobacco Use Types [...] assessments completed: Wadsworth Score: 6/6 IADL: 7/7 Underground Conduit Installer Strength Trials: 18.4, 15.0, 16.8 (right hand dominant) 5 meter walk test in seconds x3: 4.98, 4.88, 4.45 KCCQol: 98% Alfa Lua documented in this encounter Plan of Treatment Upcoming Encounters Date Type Department Care Team (Late st Contact Info) Description 11/02/2024 12:00 PM EDT Appoint[place] [address] 11/02/2024 1:00 PM EDT Office [place] [address] Magdalena Peralta MD [facility] [place] [address] 03/01/2025 4:15 PM EDT Office Visit Dermatology at [place] [address] [place] [address] Marek Bonilla MD [address], [place] [address] documented as of this encounter Visit Diagnoses Not on filedocumented in this encounter Care Teams Brim Presser Relationship Specialty Start Date End Date Deborah Quiroga APRN PCP - General Family Medicine 03/24/16 02/04/23 documented as of this encounter
--- OUTSIDE RECORDS SUMMARY | 2024-07-15 12:34 | XMS_ITS | Encounter Summary ---
Author Organization [facility] Address [facility] [place] [address] Care Team Providers Care Petroleum Inspector Supervisor Name Role Phone Junaid Deborah Shields APRN Primary Care Provider +1 [phone] Encounter Details Date Type Department Care Team (Latest Contact Info) Description 05/19/2016 11:00 AM EDT Clinical [place] [address] Nonrheumatic aortic valve stenosis Social History Tobacco [...] 11/02/2024 12:00 PM EDT [place] [address] 11/02/2024 1:00 PM EDT [place] [address] Magdalena Peralta MD [facility] [place] [address] 03/01/2025 4:15 PM EDT Office Visit Dermatology at [place] [address] [place] [address] Marek Bonilla MD [address], [place] [address] documented as of this encounter Procedures Procedure [...] (Bezet) 448 ms MUSE SYSTEM Calculated P [place] 37 degrees MUSE SYSTEM Calculated R [place] 31 degrees MUSE SYSTEM Calculated T [place] 25 degrees MUSE SYSTEM INTERPRETATION Normal sinus rhythm Normal ECG No previous ECGs available Confirmed by MD Becca, Deangelo ([id number]) on 05/19/2016 5:23:33 PM MUSE SYSTEM 05/19/2016 11:4 3 AM EDT 05/19/2016 5:23 PM EDT Alirio Esparza MD ECG ORDERABLES MUSE SYSTEM documented in this encounter Visit Diagnoses Diagnosis Nonrheumatic aortic valve stenosis Aortic valve disorders documented in this encounter Care Teams Petroleum Inspector Supervisor Relationship Specialty Start Date End Date Deborah Quiroga, LUNCH COUNTER MANAGER PCP - General Family Medicine 03/24/16 02/04/23 documented as of this encounter
--- OUTSIDE RECORDS SUMMARY | 2024-07-15 12:34 | XMS_ITS | Encounter Summary ---
[place] [address] Care Team Providers Care Port Traffic Manager Name Role Phone Ashley Quirogan Cornelius ANURAG Primary Care Provider +1- [phone] Reason for Visit * Reason Onset Date Comments Medical Care Coordination 09/14/2016 Encounter Details Date Type Department Care Team (Late st Contact Info) Description 09/14/2016 Telephone Hematology [place] [address] Alexandrea Greenwood RN Medical Care Coordination Social [...] 09/14/2016 9:10 AM EST Message received from finished carpet inspector: Injection/Infusion Referral Call placed to [facility] Infusion Room Spoke charis Bragg. Services to be provided for pt are: [facility] 09/16/16 Mahsa confirmed they would provide services to pt and would contact with appointment time. Pt aware to expect the phone call ??orders faxed to [phone]). documented in this encounter Plan of Treatment Upcoming Encounters Date Type Department Care Team (Late st Contact Info) Description 11/02/2024 12:00 PM EDT Appointment [place] [address] 11/02/2024 1:00 PM EDT Office Visit [place] [address] Magdalena Peralta MD [facility] [place] [address] 03/01/2025 4:15 PM EDT Office Visit Dermatology at [place] [address] [place] [address] Marek Bonilla MD [address], [place] [address] documented as of this encounter Visit Diagnoses Not on filedocumented in this encounter Care Teams Port Traffic Manager Relationship Specialty Start Date End Date Deborah Quiroga APRN PCP - General Family Medicine 03/24/16 02/04/23 documented as of this encounter
--- OUTSIDE RECORDS SUMMARY | 2024-07-15 12:34 | XMS_ITS | Encounter Summary ---
Author Organization [facility] [place] [address] Care Team Providers Care Casing Mixer Name Role Phone Deborah Quiroga ANURAG Primary Care Provider +1- [phone] Encounter Details Date Type Department Care Team (Late st Contact Info) Description 05/22/2016 Orders Only Cardiology at [address] [address] Chele Randolph PA [facility] DR CARDIOLOGY [place] [address] Aortic valve stenosis, unspecified etiology [...] 11/02/2024 12:00 PM EDT Appointment [place] [address] 11/02/2024 1:00 PM EDT Office Visit [place] [address] Magdalena Peralta MD [facility] DR RHEUMATOLOGY [place] [address] 03/01/2025 4:15 PM EDT Office Visit Dermatology at [place] [address] [place] [address] Marek Bonilla MD [address], [place] [address] documented as of this encounter Procedures Procedure Name Priority Date/Time Associated Diagnosis Comments CARDIAC CATHETERIZATION Routine 06/03/20 16 9:13 AM EDT Aortic valve stenosis, unspecified etiology documented in this encounter Results * CARDIAC CATHETERIZATION (06/03/2016 9:13 AM EDT) Anatomical Region Laterality Modality Other Narrative 06/03/2016 10:13 AM EDT ?[facility] ? Cardiac Catheterization/Intervention Report ? Patient Name: Purnima Thacker. ? Procedure Date: 06/03/2016 ? A #: [id number] ? Primary Physician: Nitesh Escobedo ? Case #: [id number] ? File Name: [id number] ? Catheterization Order Number: [id number] ? [facility] ? Final Report [place], [place] ? Patient Name: ? Purnima M. Kirstie ? ID#: ?[id number] ? : ?1955 ? Procedure Date: ? [...] no symptom, no angina (w/i 14 days). [place] ?Cardiovascular Society angina class was 0. This [...] ? Procedure Nitesh Marroquin MD - 09/21/2016 [facility] Cardiac Catheterization/Intervention Report Patient Name: Purnima Thacker Procedure Date: 06/03/2016 A #: [id number] Primary Physician: Nitesh Escobedo Case #: [id number] File Name: [id number] Catheterization Order Number: [id number] [facility] FinalReport [place], [place] Patient Name: Purnima Thacker ID#:[id number] :1955 Procedure Date: June 03, 2016 Case [...] with: no symptom, no angina (w/i 14 days).[place] Cardiovascular Society angina class was 0. This [...] etiology documented in this encounter Care Teams Casing Mixer Relationship Specialty Start Date End Date Deborah Quiroga, ORACLE FORMS DEVELOPER PCP - General Family Medicine 03/24/16 02/04/23 documented as of this encounter
--- OUTSIDE RECORDS SUMMARY | 2024-07-15 12:34 | XMS_ITS | Encounter Summary ---
Author Organization [facility] [place] [address] Care Team Providers Care Mold Carrier Name Role Phone Deborah Quiroga APRN Primary Care Provider +1 [phone] Encounter Details Date Type Department Care Team (Late st Contact Info) Description 08/18/2016 4:20 PM EST Clinical Support Same Day at [facility] [place] [address] Social History Tobacco Use Types Packs/Day Years [...] in this encounter Progress Notes * Helena Bluont RN - 08/18/2016 4:20 PM EST PAT [...] 11/02/2024 12:00 PM EDT Appointment [place] [address] 11/02/2024 1:00 PM EDT Office [place] [address] Magdalena Peralta MD [facility] [place] [address] 03/01/2025 4:15 PM EDT Office Visit Dermatology at [place] [address] [place] [address] Marek Bonilla MD [address], [place] [address] documented as of this encounter Visit Diagnoses Not on filedocumented in this encounter Care Teams Mold Carrier Relationship Specialty Start Date End Date Deborah Quiroga APRN PCP - General Family Medicine 03/24/16 02/04/23 documented as of this encounter
--- OUTSIDE RECORDS SUMMARY | 2024-07-15 12:34 | XMS_ITS | Encounter Summary ---
[place] [address] Care Team Providers Care Channel Process Supervisor Name Role Phone Junaid Deborah Shields APRN Primary Care Provider [phone] Reason for Visit * Auth/Cert Specialty Diagnoses / Procedures Referred By Crispin t Referred To Contact Diagnoses Aortic stenosis Procedures PRO REPLACE AORT VALV, PROSTH VALV @REPLACE AORTIC VALVE, OPEN, W\CPB, W\PROSTHETIC VALVE (WRVU 41.32) Referral ID Status Reason Start Date Expiration Date Visits Re quested Visits Authorized [id number] 1 1 Encounter Details Date Type Department Care Team (Late st Contact Info) Description 09/21/2016 7:25 AM EST Anesthesia [place] [address] Luis Enrique Quarles MD [facility] [address] [place] [address] Henrik Cooper MD [facility] DR [place] [address] Anesthesia Record Procedure Summary Procedure Name Responsible [...] 0819 Sternotomy 0844 CV Bypass init 1009 Feeder Catcher Tobacco 1014 An Clamp Remove 1031 CP Bypass [...] Tube 09/21/16 (#28 angled chest tube to [place]: left: pericardial); Left; 09/22/16; 1119 09/21/16 0000 by Toshia Alejandre RN 09/22/16 1119 by Vero Bonilla RN Chest Tube 09/21/16 (#28 straig ht chest tube to [place]; right: mediastinal'); Right; mediastinum; 09/22/16; 1118 09/21/16 0000 by Toshia Alejandre RN 09/22/16 1118 by Vero Bonilla RN (RETIRED) Peripheral IV Line - Single Lumen 09/21/16; 0648; metacarpal vein (top of hand), left; miyj-zcd-[id number] catheter system; 20 gauge; valdo Arteaga; 09/23/16; [...] Cooper MD - 09/21/2016 6:50 PM EST [facility] [place]hesiology Post-procedure Note Patient: Purnima Thacker Procedure Summary Date Anesthesia Start Anesthesia Stop Room / Location 09/21/16 07 1152 [facility] OR 16 / [facility] MAIN OR Procedure Diagnosis Surgeon Responsible Provider @REPLACE AORTIC VALVE, OPEN, W\CPB, W\PROSTHETIC VALVE (WRVU 41.32) (N/A Chest); @AORTOPLASTY FOR SUPRAVALVULAR STENOSIS (WRVU 29.33) (N/A Chest) () Alirio Francisco MD Clark, Jeffrey A, MD All Anesthesia Providers: Anesthesiologist: Luis Enrique Quarles MD Photo Stylist: Henrik Cooper MD Last (1hr) Vitals: BP Temp 36.1 ??C (97 ??F) (09/21/16 1800) Pulse 79 (09/21/16 1800) Resp 11 (09/21/16 1800) SpO2 98 % (09/21/16 1800) Patient Location: [facility] Level of Consciousness: Sedated (Pharmacologic/Intentional) Pain Management: [...] 12:00 PM EDT Appointment [place] [address] 11/02/2024 1:00 PM EDT Office [place] [address] Magdalena Peralta MD [facility] [place] [address] 03/01/2025 4:15 PM EDT Office Visit Dermatology at [place] [address] [place] [address] Marek Bonilla MD [address], [address] [place] [address] documented as of this encounter Visit Diagnoses [...] mg documented in this encounter Care Teams Channel Process Supervisor Relationship Specialty Start Date End Date Deborah Quiroga, LAST REMODELER REPAIRER PCP - General Family Medicine 03/24/16 02/04/23 documented as of this encounter
--- OUTSIDE RECORDS SUMMARY | 2024-07-15 12:34 | XMS_ITS | Encounter Summary ---
Author Organization [facility] Address [facility] [place] [address] Care Team Providers Care Auto Overhauler Name Role Phone Deborah Quiroga ANURAG Primary Care Provider [phone] Encounter Details Date Type Department Care Team (Late st Contact Info) Description 07/22/2016 External Results Hematology [place] [address] Alexandrea Greenwood RN Neutropenia, unspecified [...] 12:00 PM EDT Appointment [place] [address] 11/02/2024 1:00 PM EDT Office [place] [address] Magdalena Peralta MD [facility] [address] 03/01/2025 4:15 PM EDT Office Visit Dermatology at [address] [address] Marek Bonilla MD [address], [place] [address] documented as of this encounter Procedures Procedure Name Priority Date/Time Associated Diagnosis Comments COPPER, SERUM Routine 07/20/2016 10:30 AM EST Neutropenia, unspecified type CMV PCR, QUANTITATIVE Routine 07/20/2016 10:30 AM EST Neutropenia, unspecified type MONONUCLEOSIS SCREEN (AP[facility]) Routine 07/20/2016 10:30 AM EST Neutropenia, unspecified type CBC (WITH DIFF) Routine 07/20/2016 10:30 AM EST Neutropenia, unspecified type documented in this encounter Results * Copper, serum (07/20/2016 10:30 AM EST) Copper (NOVEMBER) 1.09 0.75 - 1.45 EXTERNAL LAB Blood specimen (specimen) 07/20/2016 10:30 AM EST Markel Borjas MD LAB SEND OUT ORDER JODIE Performing Organization Address [facility]/ZIP Co de [...] documented in this encounter Care Teams Auto Overhauler Relationship Specialty Start Date End Date Deborah Quiroga, M1 ARMOR CREWMAN PCP - General Family Medicine 03/24/16 02/04/23 documented as of this encounter
--- OUTSIDE RECORDS SUMMARY | 2024-07-15 12:34 | XMS_ITS | Encounter Summary ---
Author Organization [facility] [place] [address] Care Team Providers Care Wharfinger Chief Name Role Phone Deborah Quiroga APRN Primary Care Provider [phone] Encounter Details Date Type Department Care Team (Latest Contact Info) Description 07/10/2016 2:54 PM EST - 07/10/2016 11:59 PM EST Hospital [place] [address] Discharge Disposition: Home Social History Tobacco Use [...] 11/02/2024 12:00 PM EDT Appointment [place] [address] 11/02/2024 1:00 PM EDT Office [place] [address] Magdalena Peralta MD [facility] [place] [address] 03/01/2025 4:15 PM EDT Office Visit Dermatology at [place] [address] [place] [address] Marek Bonilla MD [address], [place] [address] documented as of this encounter Procedures Procedure Name Priority Date/Time Associated Diagnosis Comments BONE MARROW FINAL REPORT Routine 07/10/2016 3:43 PM EST documented in this encounter Results * Bone Marrow Final Report (07/10/2016 3:43 PM EST) Final Diagnosis [id number] ?Location: OPW The signing pathologist has (i) examined the relevant preparation(s) for the specimen(s) and (ii) rendered or confirmed the diagnosis(es). . ? Bone Marrow Final DIAGNOSIS BONE MARROW (PERIPHERAL SMEAR, ASPIRATE SMEAR, TOUCH PREP, CLOT SECTION, CORE BIOPSY); [OSR# [id number], COLLECTED 06/23/2016, 19 SLIDES]: ?? 1. ??Normocellular [...] clonal lymphoproliferative or myeloproliferative ? disorder (OSR# [id number]) ?Chromosome analysis on the marrow aspirate revealed a normal female karyotype; ?46,XX[25] ??(OSR# [id number]) Electronically signed by: ??Elian Guillen MD Verified: [...] 3/uL Band/Seg 0.52 x103/uL; Lymph 0.75 x103/uL; [place] 0.15 x103/uL; Eos 0.01%; Baso 0.01 x10 [...] plasma cells represent 3-4% of the cellularity [place] ? Polytypic plasma cell staining, high background Lambda ?Polytypic plasma cell staining, high background Block: ? B2 (Core biopsy 2) Fixative: ?? Formalin ANTIBODY: ?? RESULT/COMMENT CD3 ? Scattered small lymphocytes and lymphoid aggregates highlighted CD20 ?Few scattered small lymphocytes stain ( ?? <CD3 in aggregates) CD138 ? Scattered plasma cells represent 3-4% of the cellularity [place] ? Polytypic plasma cell staining, high background Lambda ?Polytypic plasma cell staining, high background Note: The immunoperoxidase stains reported above were developed and their performance characteristics determined by [facility]. ??They [...] CONSULTATION CASE A - 19 slides labeled [id number], collection date 06/23/2016. [id number] Report to: [facility] Surgical Pathology Department [facility], [facility], 2nd Floor [address] [place] [address] ??[id number] 07/13/2016 11:38 AM EST [facility] Consult Case 07/10/2016 3:43 PM EST 07/10/2016 3:43 PM EST Nitesh Pina Jr., MD PATHOLOGY/CYTOLOGY O RDERABLES [facility] [place] [address] documented in this encounter Visit Diagnoses Not on filedocumented in this encounter Care Teams Wharfinger Chief Relationship Specialty Start Date End Date Deborah Quiroga APRN PCP - General Family Medicine 03/24/16 02/04/23 documented as of this encounter
--- OUTSIDE RECORDS SUMMARY | 2024-07-15 12:34 | XMS_ITS | Encounter Summary ---
Author Organization [facility] Address [facility] [place] [address] Care Team Providers Care Import/Export Administrator Name Role Phone Ashley Quirogan Cornelius ANURAG Primary Care Provider [phone] Encounter Details Date Type Department Care Team (Late st Contact Info) Description 08/11/2016 Telephone Hematology [place] [phone] Markel Borjas MD [facility] [address] [place] [address] Social History Tobacco Use Types Packs/Day Years [...] 11/02/2024 12:00 PM EDT Appointment [place] [address] 11/02/2024 1:00 PM EDT Office [place] [address] Magdalena Peralta MD [facility] [place] [address] 03/01/2025 4:15 PM EDT Office Visit Dermatology at [place] [address] [place] [address] Marek Bonilla MD [address], [place] [address] documented as of this encounter Visit Diagnoses Not on filedocumented in this encounter Care Teams Import/Export Administrator Relationship Specialty Start Date End Date Deborah Quiroga APRN PCP - General Family Medicine 03/24/16 02/04/23 documented as of this encounter
--- OUTSIDE RECORDS SUMMARY | 2024-07-15 12:34 | XMS_ITS | Encounter Summary ---
Author Organization [facility] Address [facility] [place] [address] Care Team Providers Care Staff Development Nurse Name Role Phone Junaid Deborah Shields APRN Primary Care Provider [phone] Encounter Details Date Type Department Care Team (Latest Contact Info) Description 06/19/2016 - 06/19/2016 11:59 PM EST Hospital Encounter Radiology Library at [facility] [place] [phone] Nitesh Pina Jr., MD [facility] HEMATOLOGY [place] [address] Pain Discharge Disposition: Home Social History Tobacco [...] PM EDT Appoint[place] [address] 11/02/2024 1:00 PM EDT Office [place] [address] Magdalena Peralta MD [facility] [place] [address] 03/01/2025 4:15 PM EDT Office Visit Dermatology at [address] [place] [address] Marek Bonilla MD [address] [facility], [place] [address] documented as of this encounter Procedures Procedure Name Priority Date/Time Associated Diagnosis Comments FILM LIBRARY STORAGE ONLY CT CHEST ABDOMEN PELVIS Routine 06/19/2016 12:00 AM EST Pain documented in this encounter Results * Film Library- Storage Only CT Chest Abdomen Pelvis (06/19/2016 12:00 AM EST) Narrative [facility] - 06/20/2016 8:53 AM EST This exam is for storage only and is auto-finalizing. Nitesh Pina Jr., MD IMG FILM LIBRARY ORD ERABLES [place], [place] documented in this encounter Visit Diagnoses Diagnosis Pain Generalized pain documented in this encounter Care Teams Staff Development Nurse Relationship Specialty Start Date End Date Deborah Quiroga APRN PCP - General Family Medicine 03/24/16 02/04/23 documented as of this encounter
--- OUTSIDE RECORDS SUMMARY | 2024-07-15 12:34 | XMS_ITS | Encounter Summary ---
[place] [address] Care Team Providers Care Bottle Selector Name Role Phone JunaidDeborah APRN Primary Care Provider [phone] Reason for Visit * Reason Onset Date Comments Pre Procedure Call 06/18/2016 Encounter Details Date Type Department Care Team (Late st Contact Info) Description 06/18/2016 Telephone Hematology [place] [address] Alexandrea Greenwood RN Pre Procedure [...] 11/02/2024 12:00 PM EDT [place] [address] 11/02/2024 1:00 PM EDT [place] [address] Magdalena Peralta MD [facility] [place] [address] 03/01/2025 4:15 PM EDT Office Visit Dermatology at [place] [address] [facility] [address] [place] [address] Marek Bonilla MD [address], [address] [place] [address] documented as of this encounter Visit Diagnoses Not on filedocumented in this encounter Care Teams Bottle Selector Relationship Specialty Start Date End Date Deborah Quiroga APRN PCP - General Family Medicine 03/24/16 02/04/23 documented as of this encounter
--- OUTSIDE RECORDS SUMMARY | 2024-07-15 12:34 | XMS_ITS | Encounter Summary ---
Author Organization [facility] Address [facility] [place] [address] Care Team Providers Care Cartography Technician Name Role Phone Ashley Quirogan Cornelius ANURAG Primary Care Provider [phone] Encounter Details Date Type Department Care Team (Late st Contact Info) Description 07/13/2016 External Results Medical Records [place] [phone] Provider, Scanning Social History Tobacco Use Types [...] PM EDT Appointment Pulmonology at [place] [phone] 11/02/2024 1:00 PM EDT Office [place] [address] Magdalena Peralta MD [facility] RHEUMATOLOGY DEPT [place] [phone] 03/01/2025 4:15 PM EDT Office Visit Dermatology at [place] [address] [place] [address] Marek Bonilla MD [address], [place] [address] documented as of this encounter Procedures Procedure Name Priority Date/Time Associated Diagnosis Comments SURGICAL PATHOLOGY SCAN Routine 07/13/2016 documented in this encounter Results * Scan Doc: Surgical Pathology (07/13/2016) Nitesh Pina Jr., MD MEDIA MGR SCAN EXT O RDR/RSLT documented in this encounter Visit Diagnoses Not on filedocumented in this encounter Care Teams Cartography Technician Relationship Specialty Start Date End Date Deborah Quiroga APRN PCP - General Family Medicine 03/24/16 02/04/23 documented as of this encounter
--- OUTSIDE RECORDS SUMMARY | 2024-07-15 12:34 | XMS_ITS | Encounter Summary ---
Author Organization [facility] Address [facility] [place] [address] Care Team Providers Care Sr. Manager Corporate Communications Name Role Phone Deborah Quiroga ANURAG Primary Care Provider [phone]- [phone] Encounter Details Date Type Department Care Team (Late st Contact Info) Description 06/16/2016 Orders Only Hematology [place] [address] Nitesh Pina Jr., MD [facility] DR [place] [address] Cyclical neutropenia Social History Tobacco Use Types [...] [place] [address] Magdalena Peralta MD [facility] DR RHEUMATOLOGY DEPT [place], [place] [phone] 03/01/2025 4:15 PM EDT Office Visit Dermatology at [place] [address] [place] [address] Marek Bonilla MD [address] [place] [address] documented as of this encounter Visit Diagnoses Diagnosis Cyclical neutropenia Cyclic neutropenia documented in this encounter Care Teams Sr. Manager Corporate Communications Relationship Specialty Start Date End Date Deborah Quiroga, FOREST RANGER PCP - General Family Medicine 03/24/16 02/04/23 documented as of this encounter
--- OUTSIDE RECORDS SUMMARY | 2024-07-15 12:34 | XMS_ITS | Encounter Summary ---
Author Organization [facility] Address [facility] [place] [address] Care Team Providers Care Chrome Tanning Drum Operator Name Role Phone Deborah Quiroga ANURAG Primary Care Provider [phone]- [phone] Encounter Details Date Type Department Care Team (Late st Contact Info) Description 07/31/2016 Orders Only H[place] [address] Alexandrea Greenwood RN Neutropenia, unspecified type Social [...] 11/02/2024 12:00 PM EDT Appoint[place] [address] 11/02/2024 1:00 PM EDT Office [place] [address] Magdalena Peralta MD [facility] [place] [address] 03/01/2025 4:15 PM EDT Office Visit Dermatology at [address] [address] Marek Bonilla MD [address], [place] [address] documented as of this encounter Results * [...] type documented in this encounter Care Teams Chrome Tanning Drum Operator Relationship Specialty Start Date End Date Deborah Quiroga, REPORTING PROCESS CONSULTANT PCP - General Family Medicine 03/24/16 02/04/23 documented as of this encounter
--- OUTSIDE RECORDS SUMMARY | 2024-07-15 12:34 | XMS_ITS | Encounter Summary ---
[place] [address] Care Team Providers Care Pulpwood Cutter Name Role Phone Deborah Quiroga ANURAG Primary Care Provider [phone]- [phone] Reason for Visit * Reason Onset Date Comments Medical Care Coordination 07/31/2016 Encounter Details Date Type Department Care Team (Late st Contact Info) Description 07/31/2016 Telephone Hematology [place] [address] Alexandrea Greenwood RN Medical Care Coordination Social [...] CBC locally on 08/04/15 RN spoke with yAdee of the [facility] lab who states they can draw pt's cbc on 08/04/15, RN faxed lab req to [phone] at Aydee's request. RN instructed pt on Dr. Borjas's direction above. Pt verbalized understanding. documented in this encounter Plan of Treatment Upcoming Encounters Date Type Department Care Team (Late st Contact Info) Description 11/02/2024 12:00 PM EDT Appointment [place] [address] 11/02/2024 1:00 PM EDT Office [place] [address] Magdalena Peralta MD [facility] [place] [address] 03/01/2025 4:15 PM EDT Office Visit Dermatology at [place] [address] [place] [address] Marek Bonilla MD [address], [place] [address] documented as of this encounter Visit Diagnoses Not on filedocumented in this encounter Care Teams Pulpwood Cutter Relationship Specialty Start Date End Date Deborah Quiroga APRN PCP - General Family Medicine 03/24/16 02/04/23 documented as of this encounter
--- OUTSIDE RECORDS SUMMARY | 2024-07-15 12:34 | XMS_ITS | Encounter Summary ---
Author Organization [facility] Address [facility] [place] [address] Care Team Providers Care Hadoop Infrastructure Architect Name Role Phone Junaid, Deborah Shields APRN Primary Care Provider [phone] Reason for Visit * Auth/Cert Specialty Diagnoses / Procedures Referred By Crispin t Referred To Contact Diagnoses AVS Procedures CARDIAC CATHETERIZATION Referral ID Status Reason Start Date Expiration Date Visits Re quested Visits Authorized [id number] 1 1 Encounter Details Date Type Department Care Team (Late st Contact Info) Description 06/03/2016 6:32 AM EDT - 06/03/2016 1:10 PM EDT Hospital Encounter [place] [phone] Anjum Oliveros II, MD [facility] [address] Mario Alberto Escobedo MD [facility] [place] [address] Aortic valve stenosis, unspecified etiology; Nonrheumatic aortic [...] by your doctor, do not take any vxbu-glt-oylhbyo medicinesor herbal preparations without first discussing this with your doctor or pharmacist. There is the possibility of side effects and interactions when these are combined. Follow Up Care Who to call with questions or problems If there are any questions or problems that you think might be related to your cardiac cath or angioplasty, contact the bill collector information systems planner by calling [facility] at . * Patient Instructions* Felicia Corrigan - 06/03/2016 9:33 AM EDT Cardiology Instructions Call your doctor if: Chest pain, dyspnea, pain or swelling in legs occurs. If you have non-emergent questions between now and the time of your follow up appointments: -During 8am-5pm Wednesday through Wednesday call [phone] to speak with a nurse in the cardiology clinic -All other times call [phone] and ask to speak to the side panel hanger information systems planner. MEDICATIONS - restart your spironolactone, discontinue prior [...] Appointments: Primary care provider: Cardiology: Deborah Hahn, ACCESS SERVICE REPRESENTATIVE [phone] Follow up as planned or as needed. Dr. Esparza [phone] Other follow-up appointment: Hematology - Dr. Mario [...] 11/02/2024 12:00 PM EDT [place] [address] 11/02/2024 1:00 PM EDT Office [place] [address] Magdalena Peralta MD [facility] [place] [address] 03/01/2025 4:15 PM EDT Office Visit Dermatology at [place] [address] [place] [address] Marek Bonilla MD [address], [address] [place] [address] documented as of this encounter Procedures Procedure [...] Escobedo MD CHEMISTRY ORDERABLES [facility] [place] [address] * Methylmalonic acid, serum (06/03/2016 11:45 AM EDT) Methylmalonic Acid (NOVEMBER) 0.21 <=0.40 nmol/mL [facility] Comment: Test Performed by: [facility] - [address] [address] Electrical Design Technician: Raymond Chaudhry II, M.D., Ph.D. Blood specimen (specimen) 06/03/2016 11:45 AM EDT 06/03/2016 1:57 PM EDT Narrative Resulting Agency Comment Spec In Lab Mario Alberto Escobedo MD LAB SEND OUT ORDERAB LES Performing Organization Address City/[facility]/ZIP Co de Phone Number [facility] [place] [address] * Granulocyte Antibody (06/03/2016 11:45 AM EDT) Granulocyte Ab (NOVEMBER) Negative Not Applicable [facility] Comment: ADDITIONAL INFORMATION Method: Immunofluorescent Assay Performing Laboratory CLIA# [id number] This test was developed and its performance characteristics determined by [facility] in a manner consistent with CLIA requirements. This test has not been cleared or approved by the U.S. Food and Drug Administration. Test Performed by: [place] [address] Electrical Design Technician: Raymond Chaudhry II, M.D., Ph.D. Blood specimen (specimen) 06/03/2016 11:45 AM EDT 06/03/2016 1:57 PM EDT Narrative Resulting Agency Comment Spec In Lab Mario Alberto Escobedo MD LAB SEND OUT ORDERAB LES Performing Organization Address [facility] Co de Phone Number [facility] [place] [address] * TSH (06/03/2016 11:45 AM EDT) Thyroid Stimulating Hormone 2.18 0.27 - 4.20 mcIU/mL [facility] Blood specimen (specimen) 06/03/2016 11:45 AM EDT 06/03/2016 12:11 PM EDT Narrative Resulting Agency Comment Spec In Lab Mario Alberto Escobedo MD CHEMISTRY ORDERABLES Performing Organization Address City/[facility]/ZIP Co de Phone Number [facility] [place] [address] * Homocysteine Total, Plasma (06/03/2016 11:45 AM EDT) Homocystine 9 <=15 mcmol/L [facility] Blood specimen (specimen) 06/03/2016 11:45 AM EDT 06/03/2016 12:11 PM EDT Narrative Resulting Agency Comment Spec In Lab Mario Alberto Escobedo MD CHEMISTRY ORDERABLES Performing Organization Address City/[facility]/ZIP Co de Phone Number [facility] [place] [address] * Folate, serum (06/03/2016 11:45 AM EDT) Folate >20.0 4.8 - 24.2 ng/mL [facility] Blood specimen (specimen) 06/03/2016 11:45 AM EDT 06/03/2016 12:04 PM EDT Narrative Resulting Agency Comment Spec In Lab Mario Alberto Escobedo MD CHEMISTRY ORDERABLES Performing Organization Address City/[facility]/ZIP Co de Phone Number [facility] [place] [address] * (ABNORMAL) Sedimentation rate (06/03/2016 11:45 AM EDT) Sedimentation Rate Automated 41(H) 0 - 20 mm/hr [facility] Blood specimen (specimen) 06/03/2016 11:45 AM EDT 06/03/2016 12:04 PM EDT Narrative Resulting Agency Comment Spec In Lab Mario Alberto Escobedo MD HEMATOLOGY ORDERABLE S [facility] [place] [address] * Lactate Dehydrogenase (06/03/2016 11:45 AM EDT) Lactate Dehydrogenase 164 110 - 220 unit/L [facility] Blood specimen (specimen) 06/03/2016 11:45 AM EDT 06/03/2016 12:11 PM EDT Narrative Resulting Agency Comment Spec In Lab Mario Alberto Escobedo MD CHEMISTRY ORDERABLES [facility] [place] [address] * Comprehensive metabolic panel (non-fasting) (06/03/2016 11:45 [...] the following links into your internet browser. [email or web address] Blood specimen (specimen) 06/03/2016 11:45 AM EDT 06/03/2016 12:11 PM EDT Narrative Resulting Agency Comment Spec In Lab Mario Alberto Escobedo MD CHEMISTRY ORDERABLES [facility] [place] [address] documented in this encounter Visit Diagnoses Diagnosis [...] Hernandez) documented in this encounter Care Teams Hadoop Infrastructure Architect Relationship Specialty Start Date End Date Deborah Quiroga, ACCESS SERVICE REPRESENTATIVE PCP - General Family Medicine 03/24/16 02/04/23 documented as of this encounter
--- OUTSIDE RECORDS SUMMARY | 2024-07-15 12:34 | XMS_ITS | Encounter Summary ---
Author Organization [facility] Address [facility] [place] [address] Care Team Providers Care Intelligence Manager Name Role Phone Deborah Quiroga ANURAG Primary Care Provider [phone] Encounter Details Date Type Department Care Team (Late st Contact Info) Description 09/17/2016 External Results [place]ematology [place] [address] Alexandrea Greenwood RN Neutropenia, unspecified [...] 11/02/2024 12:00 PM EDT [place]oint[place] [address] 11/02/2024 1:00 PM EDT Office [place] [address] Magdalena Peralta MD [facility] [place] [address] 03/01/2025 4:15 PM EDT Office Visit Dermatology at [address] [address] Marek Bonilla MD [address], [place] [address] documented as of this encounter Procedures Procedure [...] type documented in this encounter Care Teams Intelligence Manager Relationship Specialty Start Date End Date Deborah Quiroga APRN PCP - General Family Medicine 03/24/16 02/04/23 documented as of this encounter
--- OUTSIDE RECORDS SUMMARY | 2024-07-15 12:34 | XMS_ITS | Encounter Summary ---
Author Organization [facility] Address [facility] [place] [address] Care Team Providers Care Freight Conductor Name Role Phone Junaid Deborah Shields APRN Primary Care Provider Encounter Details Date Type Department Care Team (Late st Contact Info) Description 07/17/2016 9:00 AM EST Office Visit Hematology [place] [address] Markel Borjas MD [facility] [address] HEMAT[place] [address] Neutropenia, unspecified type Social History Tobacco Use [...] AM EST Hematology Outpatient Clinic [facility] Hematology Outpatient [...] TOUCH PREP, CLOT SECTION, CORE ??BIOPSY); [OSR# [id number], COLLECTED 06/23/2016, 19 SLIDES]: ?1. ??Normocellular marrow [...] a clonal lymphoproliferative or myeloproliferative disorder (OSR# [id number]) Chromosome analysis on the marrow aspirate revealed [...] at [facility] in computer department Family History: [...] leukopenia. Will consi kanwal talking to pt's hospital aide about a switch from ACEI to ARB [...] N [facility] HEM ONC [facility] [phone] Date: 07/17/16 Patient Name: Purnima Thacker : 1955 Diagnosis: neutropenia Referral to [site]: [facility] Orders: ? Labs: Fax results to . [x] Draw CBC, copper level, CMV PCR, mononucleosis screen on 07/20 Repeat CBC on 07/30 (to measure response of WBC after Neulasta) ? Growth factor: [x] Neulasta 6mg SQ injection x 1 on 07/20/2016 Signature: Markel Borjas MD beeper # [id number] documented in this encounter Plan of Treatment Upcoming Encounters Date Type Department Care Team (Late st Contact Info) Description 11/02/2024 12:00 PM EDT Appointment [place] [address] 11/02/2024 1:00 PM EDT Office [place] [address] Magdalena Peralta MD [facility] [place] [address] 03/01/2025 4:15 PM EDT Office Visit Dermatology at [address] [place] [address] Marek Bonlila MD [address], [place] [address] documented as of this encounter Results * (ABNORMAL) CBC (with Diff) (07/31/2016 9:40 AM EST) Pathologist [facility] White Blood Cell 2.23(EXTER NAL/ABN) 4.4 - 10.8 EXTERNAL LAB Hemoglobin 12.6 12.0 - 16.0 EXTERNAL LAB Hematocrit 37.7 36.0 - 46.0 EXTERNAL LAB Platelet 167 130 - 400 EXTERNAL LAB Neutrophil Absolute (ANC) - Automated 1.17(EXTER NAL/ABN) 1.2 - 6.7 EXTERNAL LAB Blood specimen (specimen) 07/31/2016 9:40 AM EST Markel Borjas MD HEMATOLOGY ORDERAB LES Performing Organization Address City/[facility]/ZIP Co de Phone Number EXTERNAL LAB * Mononucleosis Screen (07/20/2016 10:30 AM EST) Pathologist [facility] Mononucleosis Screen neg neg - neg EXTERNAL [...] CMV PCR, Quantitative (07/20/2016 10:30 AM EST) [facility] CMV PCR,Quantitati ve undetected EXTERNAL LAB [...] type documented in this encounter Care Teams Freight Conductor Relationship Specialty Start Date End Date Deborah Quiroga, LEATHER CRAFTER PCP - General Family Medicine 03/24/16 02/04/23 documented as of this encounter
--- OUTSIDE RECORDS SUMMARY | 2024-07-15 12:34 | XMS_ITS | Encounter Summary ---
Author Organization [facility] Address [facility] [place] [address] Care Team Providers Care Tube Building Machine Operator Name Role Phone Deborah Quiroga APRN Primary Care Provider [phone] Reason for Visit * Reason Comments Schedule Office Case * Consultation (Routine) - Closed Specialty Diagnoses / Procedures Referred By Contac t Referred To Contact Hematology and Oncology Diagnoses Leukopenia Neutropenia LEUKOPENIA W/NEUTROPENIA Procedures TC PEGFILGRASTIM, 6MG, INJECTION LEUKOPENIA W/NEUTROPENIA Alirio Esparza MD [facility] CARDIOTH[place]AC[place] [address] Mario Alberto Ramos Jr., MD [facility] DR HEMATOLOGY [place] [address] Referral ID Status Reason Start Date Expiration Date V isits Requested Visits Authorized [id number] Closed Consult, Test & Treat 07/17/2016 07/17/2017 1 1 Encounter Details Date Type Department Care Team (Late st Contact Info) Description 06/09/2016 3:00 PM EST Office Visit Hematology [place] [address] Mario Alberto Ramos Jr., MD [facility] [place] [address] Cyclical neutropenia Social History Tobacco Use Types [...] Hematology Outpatient Clinic [facility] Hematology Outpatient Consult Note CC: [...] Unknown See Comment Flow Cytometry Report Unknown [id number] ... HematoPathology: Flow Cytometry DIAGNOSIS 1. No [...] 11/02/2024 12:00 PM EDT Appointment [place] [address] 11/02/2024 1:00 PM EDT Office [place] [address] Magdalena Peralta MD [facility] [place] [address] 03/01/2025 4:15 PM EDT Office Visit Dermatology at [place] [address] [place] [address] Marek Bonilla MD [address], [place] [address] documented as of this encounter Procedures Procedure [...] (06/09/2016 4:53 PM EST) Flow Cytometry Report [id number] ?Location: The signing pathologist has (i) examined [...] by the Clinical Flow Cytometry Laboratory at [facility]. It has not been cleared or [...] high complexity clinical laboratory testing. SPECIMEN PROCESSING [id number] Cells for immunophenotypic analysis were derived from peripheral blood. ??CD45 vs side scatter gating was utilized to identify a lymphoid analysis region that comprises approximately 49-51% of all cells. The following markers were assessed: CD2, CD3, CD4, CD5, CD7, CD8, CD10, CD16, CD19, CD45, CD56, CD57, kappa light chain, and lambda light chain. CLINICAL INFORMATION 60 yo female with neutropenia. LGL panel requested. [facility] 06/09/2016 4:53 PM EST Mario Alberto Ramos Jr., MD PATHOLOGY/CYTOLOGY O RDERABLES Performing Organization Address [facility]/ZIP Co de Phone Number [facility] [place] [address] * Scan, Peripheral Blood (06/09/2016 4:53 PM EST) Pathologist [facility] Plat estimate Normal [facility] RBC Morphology Normal [facility] Blood specimen (specimen) 06/09/2016 4:53 PM EST 06/09/2016 5:00 PM EST Narrative Resulting Agency Comment Spec In Lab Mario Alberto Ramos Jr., MD HEMATOLOGY ORDERABLE S Performing Organization Address [facility] Co de Phone Number [facility] [place] [address] * (ABNORMAL) Differential, Automated (06/09/2016 4:53 PM EST) [facility] Neutrophil % 27.7 % [facility] Neutrophil Absolute 0.48(Crit ical) 1.70 - 6.10 x10(3)/mc L [facility] Comment: Matches Previous Results.. This result has been called to NOT CALLED by Jesusita Argueta on 06 09 2016 at 1817, and has not been read back. MATCHES PREVIOUS RESULTS Lymph % 57.2 % [facility] Lymphocytes Abs 1.0 0.9 - 3.2 x10(3)/mc L [facility] Monocyte % 13.3 % [facility] Monocyte Abs 0.2(L) 0.3 - 0.9 x10(3)/[facility] Eos % 0.6 % [facility] Eosinophils Abs 0.0 0.0 - 0.4 x10(3)/[facility] Basophil % 1.2 % [facility] Baso Absolute 0.0 0.0 - 0.1 x10(3)/[facility] Immature Gran % 0.00 % [facility] Blood specimen (specimen) 06/09/2016 4:53 PM EST 06/09/2016 5:00 PM EST Narrative Resulting Agency Comment Spec In Lab Mario Alberto Ramos Jr., MD HEMATOLOGY ORDERABLE S Performing Organization Address City/State/[facility] Co de Phone Number [facility] [place] [address] * (ABNORMAL) Hemogram (06/09/2016 4:53 PM EST) White Blood Cell 1.7(Criti gabrielle) 4.0 - 9.5 x10(3)/[facility] Red Blood Cell 3.92(L) 4.00 - 5.21 x10(6)/[facility] Hemoglobin 12.4 11.7 - 15.5 gm/dL [facility] Hematocrit 36.7 35.7 - 45.8 % [facility] Mean Cell Volume 93.6 82.6 - 94.4 fL [facility] Mean Cell Hemoglobin 31.6 27.1 - 32.0 pg [facility] Mean Cell Hemoglobin Concentration 33.8 31.7 - 35.0 gm/dL [facility] Platelet 234 145 - 357 x10(3)/mc L [facility] RDW Standard Deviation 39.8 37.0 - 46.0 fL [facility] RDW coefficient of variation 11.8 11.5 - 14.1 % [facility] Mean Platelet Volume 8.6 7.6 - 12.9 fL [facility] NRBC% auto 0.0 % [facility] NRBC Absolute 0.000 0.000 - 0.000 x10(3)/mc L [facility] Blood specimen (specimen) 06/09/2016 4:53 PM EST 06/09/2016 5:00 PM EST Narrative Resulting Agency Comment Spec In Lab Mario Alberto Ramos Jr., MD HEMATOLOGY ORDERABLE S Performing Organization Address City/[facility]/[place] [address] * Immunophenotyping Flow Cytometry (06/09/2016 4:53 PM EST) Immunophenotyping Flow See Comment [facility] Comment: When completed by the Pathologist, the Flow Cytometry Report ([id number]) will display under the Pathology Results section within [facility]. Specimen of unknown material (specimen) 06/09/2016 4:53 PM EST 06/09/2016 5:00 PM EST Narrative Resulting Agency Comment Spec In Lab Mario Alberto Ramos Jr., MD HEMATOLOGY ORDERABLE S [facility] [place] [address] documented in this encounter Visit Diagnoses Diagnosis Cyclical neutropenia Cyclic neutropenia documented in this encounter Care Teams Tube Building Machine Operator Relationship Specialty Start Date End Date Deborah Quiroga, ANTIQUE FURNITURE REPAIRER PCP - General Family Medicine 03/24/16 02/04/23 documented as of this encounter
--- OUTSIDE RECORDS SUMMARY | 2024-07-15 12:34 | XMS_ITS | Encounter Summary ---
Author Organization [facility] Address [facility] [place] [address] Care Team Providers Care Teletype Mechanic Name Role Phone Deborah Quiroga ANURAG Primary Care Provider [phone] Encounter Details Date Type Department Care Team (Late st Contact Info) Description 08/04/2016 External Results Hematology [place] [address] Alexandrea Greenwood RN Neutropenia, unspecified [...] 11/02/2024 12:00 PM EDT Appointment [place] [address] 11/02/2024 1:00 PM EDT Office [place] [address] Magdalena Peralta MD [facility] [place] [address] 03/01/2025 4:15 PM EDT Office Visit Dermatology at [address] [address] Marek Bonilla MD [address], [place] [address] documented as of this encounter Procedures Procedure [...] type documented in this encounter Care Teams Teletype Mechanic Relationship Specialty Start Date End Date Deborah Quiroga APRN PCP - General Family Medicine 03/24/16 02/04/23 documented as of this encounter
--- OUTSIDE RECORDS SUMMARY | 2024-07-15 12:34 | XMS_ITS | Encounter Summary ---
Author Organization [facility] Address [facility] [place] [address] Care Team Providers Care Service Order Clerk Name Role Phone Deborah Quiroga ANURAG Primary Care Provider [phone] Encounter Details Date Type Department Care Team (Latest Contact Info) Description 08/18/2016 4:40 PM EST [place] [address] Aortic valve stenosis, unspecified etiology [...] 11/02/2024 12:00 PM EDT [place] [address] 11/02/2024 1:00 PM EDT [place] [address] Magdalena Peralta MD [facility] [address] 03/01/2025 4:15 PM EDT Office Visit Dermatology at [address] [phone] Marek Bonilla MD [address] [place] [address], [place] [address] documented as of this encounter Procedures Procedure Name Priority Date/Time Associated Diagnosis Comments ABORH RECHECK STATUS Routine 08/18/2016 4:50 PM EST TYPE AND SCREEN, SDP (FUTURE SURGERY, [facility] SAME DAY PROGRAM ONLY) Routine 08/18/2016 4:50 [...] Esparza MD BLOOD BANK LAB [place] [facility] Organization Address City/State/ZIP Co de Phone Number [facility] [place] [address] * Antibody screen (08/18/2016 4:50 PM EST) [...] BETH [place]LEJO Performing Organization Address City/[facility]/ZIP Co de Phone Number [facility] [place] [address] * ABO/Rh Typing (08/18/2016 4:50 PM EST) ABORH Type B Pos [facility] Blood specimen (specimen) 08/18/2016 4:50 PM EST 08/18/2016 5:11 PM EST Narrative Resulting Agency Comment Spec In Lab Alirio Esparza MD BLOOD BANK LAB [place] Performing Organization Address [facility] de Phone Number [facility] [place] [address] * Basic Metabolic Panel (non-fasting) (08/18/2016 4:50 PM EST) [facility] Glucose 82 65 - 199 mg/dL [facility] [...] the following links into your internet browser. [email or web address] Blood specimen (specimen) 08/18/2016 4:50 PM EST 08/18/2016 5:03 PM EST Narrative Resulting Agency Comment Spec In Lab Alirio Esparza MD CHEMISTRY ORDERABLE S Performing Organization Address City/State/[facility] Co de Phone Number [facility] [place] [address] documented in this encounter Visit Diagnoses Diagnosis Aortic valve stenosis, unspecified etiology documented in this encounter Care Teams Service Order Clerk Relationship Specialty Start Date End Date Deborah Quiroga APRN PCP - General Family Medicine 03/24/16 02/04/23 documented as of this encounter
--- OUTSIDE RECORDS SUMMARY | 2024-07-15 12:34 | XMS_ITS | Encounter Summary ---
Author Organization [facility] Address [facility] [place] [address] Care Team Providers Care Twist Maker Name Role Phone Deborah Quiroga ANURAG Primary Care Provider [phone] Encounter Details Date Type Department Care Team (Late st Contact Info) Description 06/09/2016 Orders Only H[place] [address] Nitesh Pina Jr., MD [facility] [address] [place]EMAT[place] [address] Cyclical neutropenia Social History Tobacco Use Types [...] 11/02/2024 12:00 PM EDT Appointment [place] [address] 11/02/2024 1:00 PM EDT Office [place] [address] Magdalena Peralta MD [facility] DR RHEUMATOLOGY DEPT [place], [place] [phone] 03/01/2025 4:15 PM EDT Office Visit Dermatology at [place] [address] [place] [address] Marek Bonilla MD [address] [place] [address] documented as of this encounter Results * Immunophenotyping Flow Cytometry (06/09/2016 4:53 PM EST) Immunophenotyping Flow See Comment [facility] Comment: When completed by the Pathologist, the Flow Cytometry Report ([id number]) will display under the Pathology Results section within eD. Specimen of unknown material (specimen) 06/09/2016 4:53 PM EST 06/09/2016 5:00 PM EST Narrative Resulting Agency Comment Spec In Lab Nitesh Pina Jr., MD HEMATOLOGY ORDERABLE S Performing Organization Address City/State/[facility] Co de Phone Number [facility] [place] [address] documented in this encounter Visit Diagnoses Diagnosis Cyclical neutropenia Cyclic neutropenia documented in this encounter Care Teams Twist Maker Relationship Specialty Start Date End Date Deborah Quiroga APRN PCP - General Family Medicine 03/24/16 02/04/23 documented as of this encounter
--- OUTSIDE RECORDS SUMMARY | 2024-07-15 12:35 | XMS_ITS | Encounter Summary ---
Author Organization [facility] [place] [address] Care Team Providers Care Information Engineer Name Role Phone Mitchell Wilkes MD Primary Care Provider [phone] Encounter Details Date Type Department Care Team (Late st Contact Info) Description 01/19/2014 Orders Only Cardiology at [address] [address] Chele Randolph PA [facility] [place] [address] Cardiomyopathy (Primary Dx) Social History [...] 11/02/2024 12:00 PM EDT Appointment [place] [address] 11/02/2024 1:00 PM EDT Office [place] [address] Magdalena Peralta MD [facility] [place] [address] 03/01/2025 4:15 PM EDT Office Visit Dermatology at [place] [address] [place] [address] Marek Bonilla MD [address], [place] [address] documented as of this encounter Procedures Procedure [...] cardiomyopathies documented in this encounter Care Teams Information Engineer Relationship Specialty Start Date End Date Mitchell Wilkes MD [facility] PCP - General 06/24/10 01/19/14 documented as of this encounter
--- OUTSIDE RECORDS SUMMARY | 2024-07-15 12:35 | XMS_ITS | Encounter Summary ---
Author Organization [facility] Address [facility] [place] [address] Care Team Providers Care Hadoop Admin Name Role Phone Eitan Danni ANURAG Primary Care Provider [phone] Encounter Details Date Type Department Care Team (Latest Contact Info) Description 01/23/2014 7:45 AM EDT - 01/23/2014 5:50 PM EDT Hospital Encounter [place] [address] Alan Jacobson MD [facility] [place] [address] Cardiomyopathy; SOB (shortness of breath) Discharge Disposition: [...] by your doctor, do not take any fsuw-sgp-wguxfoz medicines or herbal preparations without first discussing this with your doctor or pharmacist. There is the possibility of side effect and interactions when these are combined. Follow up Care Who to Call with Questions or Problems If there are any questions or problems that you think might be related to your cardiac cath or angioplasty, contact the metal expediter traffic control flagger by calling [facility] at . documented in this encounter [...] in this encounter H&P Notes * Aleksandr Maajno - 01/23/2014 10:38 AM EDT Pre-Cardiac Cath [...] 11/02/2024 12:00 PM EDT Appointment [place] [address] 11/02/2024 1:00 PM EDT Office [place] [address] Magdalena Peralta MD [facility] [place] [address] 03/01/2025 4:15 PM EDT Office Visit Dermatology at [place] [address] [place] [address] Marek Bonilla MD [address], [place] [address] documented as of this encounter Procedures Procedure Name Priority Date/Time Associated Diagnosis Comments ECHOCARDIOGRAM TRANSTHORACIC Routine 01/23/2014 3:17 PM EDT SOB (shortness of breath) documented in this encounter Results * Echocardiogram Transthoracic(Leb) (01/23/2014 3:17 PM EDT) [facility] EF 50 HEARTLAB SYSTEM Anatomical Region Laterality Modality Other 01/23/2014 Narrative 01/23/2014 4:35 PM EDT Procedure: ? Transthoracic Echocardiogram Patient: ? ANDREW ONESIMO M ?(Age): 1955(58) Med Rec#: ?[id number] ? Sex: ?F ? [place] [place] Ht / Wt: ??158(cm)/93(kg) Pt. Loc: ? Adult Floor ?BSA: ?2.02 Study Date: ?01/23/2014 ? Pt. Type: Inpatient Tape: ? Referring: Lee Kincaid ([id number]) Referring: ANNALISA Traveling Plant Operator: Miguel Beverly Diagnosis:CPT Code(s): ??Echo Full (71577), ??Spectral Doppler (25692), Color Doppler (94077), Indication(s): ??Aortic stenosis Rhythm: Sinus HR ?BP [...] ? Mid-Inferior ?Hypokinetic ? Mid-Inferoseptal ?Hypokinetic ? [place]-Septal ? Hypokinetic ? [place]-Anterior ? Hypokinetic ? [place]-Lateral ?Hypokinetic ? [place]-Inferior ? Hypokinetic ? [place]-Tip ?Hypokinetic ? Chambers ?Value ?Units (Range) ? [...] Images reviewed and interpretation verified [facility] Cardiac Ultrasound Laboratory Procedure Note Lee Kincaid MD - 01/23/2014 Procedure: Transthoracic Echocardiogram Patient: ANDREW Mejias (Age): 1955(58) Med Rec#: [id number] Sex: F [place] [facility] Ht / Wt: 158(cm)/93(kg) Pt. Loc: Adult Floor BSA: 2.02 Study Date: 01/23/2014 Pt. Type: Inpatient Tape: Referring: Lee Kincaid ([id number]) Referring: ANNALISA Traveling Plant Operator: Miguel Beverly Diagnosis:CPT Code(s): Echo Full (08329), Spectral Doppler (53441), Color Doppler (90646), Indication(s): Aortic stenosis Rhythm: Sinus HR BP [...] Hypokinetic Mid-Posterolateral Hypokinetic Mid-Inferior Hypokinetic Mid-Inferoseptal Hypokinetic [place]-Septal Hypokinetic [place]-Anterior Hypokinetic [place]-Lateral Hypokinetic [place]-Inferior Hypokinetic [place]-Tip Hypokinetic Chambers Value Units (Range) IVSd 2D [...] Images reviewed and interpretation verified [facility] Cardiac Ultrasound Laboratory Lee Kincaid MD [...] RN) documented in this encounter Care Teams Hadoop Admin Relationship Specialty Start Date End Date Danni Laird APRN [address] [place] [address] PCP - General 01/23/14 11/11/14 documented as of this encounter
--- OUTSIDE RECORDS SUMMARY | 2024-07-15 12:35 | XMS_ITS | Encounter Summary ---
[place] [address] Care Team Providers Care Boy'S Adviser Name Role Phone Mitchell Wilkes MD Primary Care Provider [phone] Reason for Visit * Reason Onset Date Comments Other 01/18/2014 Encounter Details Date Type Department Care Team (Late st Contact Info) Description 01/18/2014 Telephone Cardiology at [address] [address] Jesusita Garces Other Social History [...] 11/02/2024 12:00 PM EDT Appointment [place] [address] 11/02/2024 1:00 PM EDT Office [place] [address] Magdalena Peralta MD [facility] [address] [place] [address] 03/01/2025 4:15 PM EDT Office Visit Dermatology at [place] [address] [place] [address] Marek Bonilla MD [address] [address] documented as of this encounter Visit Diagnoses Not on filedocumented in this encounter Care Teams Boy'S Adviser Relationship Specialty Start Date End Date Mitchell Wilkes MD [facility] PCP - General 06/24/10 01/19/14 documented as of this encounter
--- OUTSIDE RECORDS SUMMARY | 2024-07-15 12:35 | XMS_ITS | Encounter Summary ---
[facility] [place] [address] Care Team Providers Care Piper Helper Name Role Phone Eitan Danni OSBORN Primary Care Provider Encounter Details Date Type Department Care Team (Late st Contact Info) Description 01/23/2014 9:25 AM EDT - 01/23/2014 10:25 AM EDT Surgery [place] [address] Alan Jacobson MD [facility] [place] [address] CARDIAC CATHETERIZATION Social History Tobacco Use Types [...] by your doctor, do not take any ggbs-lgj-nprqpow medicines or herbal preparations without first discussing this with your doctor or pharmacist. There is the possibility of side effect and interactions when these are combined. Follow up Care Who to Call with Questions or Problems If there are any questions or problems that you think might be related to your cardiac cath or angioplasty, contact the station usher doll surgeon by calling [facility] at . documented in this [...] 11/02/2024 12:00 PM EDT Appointment [place] [address] 11/02/2024 1:00 PM EDT Office [place] [address] Magdalena Peralta MD [facility] [place] [address] 03/01/2025 4:15 PM EDT Office Visit Dermatology at [place] [address] [place] [address] Marek Bonilla MD [address] [facility], [place] [address] documented as of this encounter Procedures Procedure Name Priority Date/Time Associated Diagnosis Comments ECHOCARDIOGRAM TRANSTHORACIC Routine 01/23/2014 3:17 PM EDT SOB (shortness of breath) documented in this encounter Results * Echocardiogram Transthoracic(Leb) (01/23/2014 3:17 PM EDT) Pathologist [facility] EF 50 [employer] SYSTEM Anatomical Region Laterality Modality Other 01/23/2014 Narrative 01/23/2014 4:35 PM EDT Procedure: ? Transthoracic Echocardiogram Patient: ? ANDREW ONESIMO M ?(Age): 1955(58) Med Rec#: ?[id number] ? Sex: ?F ? Site Loc[place] [place] ? Ht / Wt: ??158(cm)/93(kg) Pt. Loc: ? Adult Floor ?BSA: ?2.02 Study Date: ?01/23/2014 ? Pt. Type: Inpatient Tape: ? Referring: Lee Kincaid ([id number]) Referring: ANNALISA Park Keeper: Miguel Beverly Diagnosis:CPT Code(s): ??Echo Full (47335), ??Spectral Doppler (98776), Color Doppler (51427), Indication(s): ??Aortic stenosis Rhythm: Sinus HR ?BP [...] ? Mid-Inferior ?Hypokinetic ? Mid-Inferoseptal ?Hypokinetic ? [place]-Septal ? Hypokinetic ? [place]-Anterior ? Hypokinetic ? [place]-Lateral ?Hypokinetic ? [place]-Inferior ? Hypokinetic ? [place]-Tip ?Hypokinetic ? Chambers ?Value ?Units (Range) ? [...] 01/23/2014 16:34:37 Images reviewed and interpretation verified [facility] Cardiac Ultrasound Laboratory Procedure Note Lee Kincaid MD - 01/23/2014 Procedure: Transthoracic Echocardiogram Patient: ANDREW Mejias (Age): 1955(58) Med Rec#: [id number] Sex: F Site Loc: [facility] [place] Ht / Wt: 158(cm)/93(kg) Pt. Loc: Adult Floor BSA: 2.02 Study Date: 01/23/2014 Pt. Type: Inpatient Tape: Referring: Lee Kincaid ([id number]) Referring: ANNALISA Park Keeper: Miguel Beverly Diagnosis:CPT Code(s): Echo Full (41181), Spectral Doppler (23412), Color Doppler (09756), Indication(s): Aortic stenosis Rhythm: Sinus HR BP [...] Hypokinetic Mid-Posterolateral Hypokinetic Mid-Inferior Hypokinetic Mid-Inferoseptal Hypokinetic [place]-Septal Hypokinetic [place]-Anterior Hypokinetic [place]-Lateral Hypokinetic [place]-Inferior Hypokinetic [place]-Tip Hypokinetic Chambers Value Units (Range) IVSd 2D [...] 01/23/2014 16:34:37 Images reviewed and interpretation verified [facility] Cardiac Ultrasound Laboratory Lee Kincaid [...] RN) documented in this encounter Care Teams Piper Helper Relationship Specialty Start Date End Date Danni Laird APRN [address] [place] [address] PCP - General 01/23/14 11/11/14 documented as of this encounter
--- OUTSIDE RECORDS SUMMARY | 2024-07-15 12:35 | XMS_ITS | Encounter Summary ---
Author Organization [facility] [place] [address] Care Team Providers Care Boring Inspector Name Role Phone Eitan Danni ANURAG Primary Care Provider [phone] Encounter Details Date Type Department Care Team (Late st Contact Info) Description 01/22/2014 Telephone Cardiology at [address] [address] Cynthia Arrington LPN Social History Tobacco Use [...] - 01/23/2014 2:39 PM EDT This bond underwriter did not receive a call back [...] 11/02/2024 12:00 PM EDT [place]ointment [place] [address] 11/02/2024 1:00 PM EDT [place] [address] Magdalena Peralta MD [facility] [place] [address] 03/01/2025 4:15 PM EDT Office Visit Dermatology at [place] [address] [place] [address] Marek Bonilla MD [address] [place] [address] documented as of this encounter Visit Diagnoses Not on filedocumented in this encounter Care Teams Boring Inspector Relationship Specialty Start Date End Date Danni Laird APRN [address] [place] [address] PCP - General 01/23/14 11/11/14 documented as of this encounter
--- OUTSIDE RECORDS SUMMARY | 2024-07-15 12:35 | XMS_ITS | Encounter Summary ---
Author Organization [facility] [place] [address] Care Team Providers Care Strategic Account Manager Name Role Phone JonathanDanni Leija ANURAG Primary Care Provider [phone] Encounter Details Date Type Department Care Team (Late st Contact Info) Description 01/23/2014 Orders Only Cardiology at [address] [address] Lee Kincaid MD [facility] [place] [address] SOB (shortness of breath) (Primary Dx) Social [...] 11/02/2024 12:00 PM EDT Appointment [place] [address] 11/02/2024 1:00 PM EDT Office [place] [address] Magdalena Peralta MD [facility] [place] [address] 03/01/2025 4:15 PM EDT Office Visit Dermatology at [place] [address] [facility] [place] [address] Marek Bonilla MD [address] [place] [address] documented as of this encounter Results * Echocardiogram Transthoracic(Leb) (01/23/2014 3:17 PM EDT) EF 50 [employer] SYSTEM Anatomical Region Laterality Modality Other 01/23/2014 Narrative 01/23/2014 4:35 PM EDT Procedure: ? Transthoracic Echocardiogram Patient: ? ANDREW LOBOOUISE M ?(Age): 1955(58) Med Rec#: ?[id number] ? Sex: ?F ? [place] [place] Ht / Wt: ??158(cm)/93(kg) Pt. Loc: ? Adult Floor ?BSA: ?2.02 Study Date: ?01/23/2014 ? Pt. Type: Inpatient Tape: ? Referring: Lee Kincaid ([id number]) Referring: ANNALISA Shank Taper: Miguel Beverly Diagnosis:CPT Code(s): ??Echo Full (17271), ??Spectral Doppler (13054), Color Doppler (24559), Indication(s): ??Aortic stenosis Rhythm: Sinus HR ?BP [...] ? Mid-Inferior ?Hypokinetic ? Mid-Inferoseptal ?Hypokinetic ? [place]-Septal ? Hypokinetic ? [place]-Anterior ? Hypokinetic ? [place]-Lateral ?Hypokinetic ? [place]-Inferior ? Hypokinetic ? [place]-Tip ?Hypokinetic ? Chambers ?Value ?Units (Range) ? [...] 01/23/2014 16:34:37 Images reviewed and interpretation verified [facility] Cardiac Ultrasound Laboratory Procedure Note Lee Kincaid MD - 01/23/2014 Procedure: Transthoracic Echocardiogram Patient: ANDREW Mejias (Age): 1955(58) Med Rec#: [id number] Sex: F [place] [facility]t / Wt: 158(cm)/93(kg) Pt. Loc: Adult Floor BSA: 2.02 Study Date: 01/23/2014 Pt. Type: Inpatient Tape: Referring: Lee Kincaid ([id number]) Referring: ANNALISA Shank Taper: Miguel Beverly Diagnosis:CPT Code(s): Echo Full (03124), Spectral Doppler (62288), Color Doppler (59368), Indication(s): Aortic stenosis Rhythm: Sinus HR BP [...] Hypokinetic Mid-Posterolateral Hypokinetic Mid-Inferior Hypokinetic Mid-Inferoseptal Hypokinetic [place]-Septal Hypokinetic [place]-Anterior Hypokinetic [place]-Lateral Hypokinetic [place]-Inferior Hypokinetic [place]-Tip Hypokinetic Chambers Value Units (Range) IVSd 2D [...] 01/23/2014 16:34:37 Images reviewed and interpretation verified [facility] Cardiac Ultrasound Laboratory Lee Kincaid MD ECHO ORDERABLES documented in this encounter Visit Diagnoses Diagnosis SOB (shortness of breath)- Primary Shortness of breath documented in this encounter Care Teams Strategic Account Manager Relationship Specialty Start Date End Date Danni Laird APRN [address] [place] [address] PCP - General 6/24/14 4/12/15 documented as of this encounter
== END 2024-07-15 12:26 | disposition home or self-care (01) ==
LOC: NCHCN 12:25
PROVIDERS: PCP Family Medicine; Visit Provider Family Medicine
DX: R19.5 Other fecal abnormalities (principal)
CPT/HCPCS: 87177

== ENCOUNTER 2024-08-01 14:12 | Outpatient (RCR) | payer SELFPAY ==
[2024-07-02 00:24] VITALS: BP 115/53; PULSE 83
[2024-07-04 14:12] VITALS: BP 121/48; PULSE 78
[2024-07-06 14:00] VITALS: BP 129/64; PULSE 82
[2024-07-11 14:07] VITALS: BP 133/64; PULSE 77
--- OUTSIDE RECORDS SUMMARY | 2024-07-13 14:07 | XMS_ITS | Encounter Summary ---
Author Organization [facility] Address [address] [place] [address] Care Team Providers Care Dog Sitter Name Role Phone Ashley Chavez Primary Care Provider [phone] Encounter Details Date Type Department Care Team (Latest Contact Info) Description 05/12/2019 13:18 EDT - 05/12/2019 23:59 EDT Hospital Encounter [address] [address] Unknown, Provider, MD Discharge Disposition: Home or [...] Code Departure Means Destination Home or Self Half-Way documented in this encounter Plan of Treatment Not on file documented as of this encounter Visit Diagnoses Not on filedocumented in this encounter Care Teams Dog Sitter Relationship Specialty Start Date End Date Ashley Chavez ARNP [address] [place] [address] PCP - General 07/11/10 documented as of this encounter
--- OUTSIDE RECORDS SUMMARY | 2024-07-13 14:07 | XMS_ITS | Encounter Summary ---
Author Organization [facility] Address [address] [place] [address] Care Team Providers Care Paper Goods Machine Operator Name Role Phone Scott, Ashley WILLIAM Primary Care Provider [phone] Encounter Details Date Type Department Care Team (Late st Contact Info) Description 06/23/2016 Results Only [facility] [phone] Matthew Acevedo, DO [address] [address] Social History Tobacco Use Types [...] ? PURNIMA THACKER ? Accession #: ? [id number] : ? 1955 (Age: 60) ??F ?Collect Date: ? 06/23/2016 Location: ? [facility] ? Receive Date: ? 06/24/2016 Provider: ? MATTHEW ACEVEDO DO Copy to: ?WINTER HANKINS SPA MANAGER/ESTHETICIAN MARIO ALBERTO GATES MD ? INTERPRETATION: Normal [...] ??400 ?? KARYOTYPE: 46,XX[25] End of Report [facility] 06/23/2016 06/24/2016 Matthew Acevedo DO PATHOLOGY ORDERABLES Fi nal Result [facility] [address] [place] [address] * FLOW CYTOMETRY (06/23/2016 0:00 EST) Pathology Report: FLOW CYTOMETRY REPORT Reports generated via electronic interface contain original data; however they are lacking the format of the original report. Caution should be taken when reading/interpreting unformatted reports. Name: ? PURNIMA THACKER ? Accession #: ? [id number] : ? 1955 (Age: 60) ??F ?Collect Date: ? 06/23/2016 00:00 Location: ? [facility] ? Receive Date: ? 06/24/2016 08:00 Provider: ?MATTHEW KRISTINA DO Copy to: ?WINTER HANKINS SPA MANAGER/ESTHETICIAN MARIO ALBERTO RAMOS MD ? FINAL IMMUNOPHENOTYPIC INTERPRETATION: ? Bone marrow, flow cytometric analysis: -No immunophenotypic evidence of a clonal cell population. ??See comment. ? COMMENT: The results of flow cytometry show no immunophenotypic evidence of involvement by a clonal lymphoproliferative or myeloproliferative disorder. ??Correlation of these findings with morphologic and clinical data is essential. ??Please refer to pathology report number [id number] for morphologic details. ? Document reviewed and [...] the Department of Pathology and Laboratory Medicine, [place], [place] ??It has not been cleared or [...] clinical laboratory testing. End of Report ?? [facility] 06/23/2016 06/24/2016 8:0 0 EST Matthew Acevedo DO PATHOLOGY ORDERABLES Fi nal Result Performing Organization Address City/State/[facility] Co de Phone Number [facility] [address] [place] [address] * BONE MARROW/HEMPATH CONSULT (06/23/2016 0:00 EST) Pathology Report: BONE MARROW REPORT Reports generated via electronic interface contain original data; however they are lacking the format of the original report. Caution should be taken when reading/interpreting unformatted reports. Name: ? ANDREW PURNIMA Magalie ? Accession #: ? [id number] : ? 1955 (Age: 60) ??F ?Collect Date: ? 06/23/2016 Location: ? [facility] ? Receive Date: ? 06/24/2016 Provider: ? MATTHEW ACEVEDO DO Copy to: ?WINTER HANKINS SPA MANAGER/ESTHETICIAN MARIO ALBERTO RAMOS MD ? DIAGNOSIS: Peripheral [...] #1: Aggregate biopsy length: 8 mm with procedure manager trabeculae of lamellar bone, cellular bone [...] SEE ABOVE DISCUSSION Lambda (polyclonal, Dako) ??(B1): Falconer (polyclonal, Dako) ??(B1): Biopsy (decalcified) #2: Aggregate biopsy length: 8 mm with procedure manager trabeculae of lamellar bone, cellular bone [...] (M115, Leica) ??(B2): Lambda (polyclonal, Dako) ??(B2): Falconer (polyclonal, Dako) ??(B2): NOTE: ??One or more [...] characteristics have been determined by [facility]. ??The positive and negative controls worked [...] ? 1% Blasts ?1% Special Studies Cytogenetics ([id number]): Pending. Flow Cytometry ([id number]): No immunophenotypic evidence of a clonal cell population. ? End of Report [facility] 06/23/2016 06/24/2016 us Matthew Acevedo DO PATHOLOGY ORDERABLES Fi nal Result [facility] [address] [place] [address] documented in this encounter Visit Diagnoses Not on filedocumented in this encounter Care Teams Paper Goods Machine Operator Relationship Specialty Start Date End Date Ashley Chavez ARNP [address] [place] [address] PCP - General 07/11/10 documented as of this encounter
--- OUTSIDE RECORDS SUMMARY | 2024-07-13 14:07 | XMS_ITS | Encounter Summary ---
Author Organization [facility] Address [address] [place] [address] Care Team Providers Care Deposition Operator Name Role Phone Unavailable Primary Care Provider Unavailabl e Encounter Details Date Type Department Care Team (Late st Contact Info) Description 03/24/2007 11:06 EDT - 03/24/2007 11:59 EDT Hospital Encounter [facility] - Other [address] [place] [address] Ashley Chavez ARNP [address] [place] [address] Discharge Disposition: Home or Self Care Social [...]
--- OUTSIDE RECORDS SUMMARY | 2024-07-13 14:07 | XMS_ITS | Encounter Summary ---
Author Organization [facility] Address [address] [place] [address] Care Team Providers Care Derrick Follower Name Role Phone Scott Ashley WILLIAM Primary Care Provider [phone] Encounter Details Date Type Department Care Team (Late st Contact Info) Description 11/10/2013 Results Only [facility] [phone] Jeni Laird, CARPET BINDER [address] [place], [place] [phone] Social History Tobacco Use Types Packs/Day Years [...] ? PURNIMA THACKER ? Accession #: ? [id number] : ? 1955 (Age: 58) ??F ?Collect Date: ? 11/10/2013 Location: ? [facility] ? Receive Date: ? 11/14/2013 Provider: ?JENI LAIRD CARPET BINDER Copy to: ? Specimen/Source: ?Pap Test, Endocervix, [...] PAUL ARELLANO 11/10/2013 11/14/2013 us Jeni Laird CARPET BINDER PATHOLOGY ORDERABLES Magy morgan Result PAUL ARELLANO [address] [place] [address] documented in this encounter Visit Diagnoses Not on filedocumented in this encounter Care Teams Derrick Follower Relationship Specialty Start Date End Date Ashley Chavez ARNP [address] [place] [address] PCP - General 07/11/10 documented as of this encounter
--- OUTSIDE RECORDS SUMMARY | 2024-07-13 14:07 | XMS_ITS | Encounter Summary ---
Author Organization [facility] Address [address] [place] [address] Care Team Providers Care Warehouse Assistant Name Role Phone Unavailable Primary Care Provider Unavailabl e Encounter Details Date Type Department Care Team (Late st Contact Info) Description 07/08/2010 10:55 EST - 07/08/2010 10:[address] [facility] - Other [address] [place] [address] Ashley Chavez, WILLIAM [address] [place] [address] Discharge Disposition: Home or Self Care Social [...]
--- OUTSIDE RECORDS SUMMARY | 2024-07-13 14:07 | XMS_ITS | Referral Summary ---
Author Organization [facility] Address [address] [place] [address] Care Team Providers Care Juvenile Detention Officer Name Role Phone Ashley Chavez Primary Care Provider [phone] Social History Tobacco Use Types Packs/Day Years [...] of Treatment Not on file Insurance MEDICARE [facility] Care Teams Juvenile Detention Officer Relationship Specialty Start Date End Date Ashley Chavez ARNP [address] [place] [address] PCP - General 07/11/10
--- OUTSIDE RECORDS SUMMARY | 2024-07-13 14:07 | XMS_ITS | Clinical Summary ---
Author Organization [facility] Address [address] [place] [address] Care Team Providers Care Blower Installer Name Role Phone Ashley Chavez Primary Care Provider [phone] Social History Tobacco Use Types Packs/Day Years [...] 2030 Insurance MEDICARE [employer] [place] Care Teams Blower Installer Relationship Specialty Start Date End Date Ashley Chavez ARNP [address] [place], [place] [id number] PCP - General 07/11/10
--- OUTSIDE RECORDS SUMMARY | 2024-07-13 14:07 | XMS_ITS | Encounter Summary ---
Author Organization Health system Address [address] [place] [address] Care Team Providers Care Veterinary Technician Assistant Name Role Phone Unavailable Primary Care Provider Unavailabl e Encounter Details Date Type Department Care Team (Late st Contact Info) Description 03/24/2007 Results Only [facility] Non-Invasive Cardiology - [facility] [address] [place], [place] [address] Ashley Chavez, WILLIAM [address] [place] [address] Social History Tobacco Use Types Packs/Day Years [...] ? PURNIMA THACKER ? Accession #: ? [id number] : ? 1955 (Age: 51) ??F ?Collect Date: ? 03/24/2007 Location: ? [facility] ? Receive Date: ? 03/28/2007 Provider: ?ASHLEY THOMAS Copy to: ? Specimen/Source: ?ThinPrep Pap Test, Endocervix, processed on [employer] ThinPrep Imaging System, with manual evaluation Last [...] ORDERABLES Final Res ult PAUL ARELLANO [address] [place] [address] documented in this encounter Visit Diagnoses Not on filedocumented in this encounter
--- OUTSIDE RECORDS SUMMARY | 2024-07-13 14:07 | XMS_ITS | Encounter Summary ---
Author Organization [facility] Address [address] [place] [address] Care Team Providers Care Investor Relations Director Name Role Phone Scott Ashley WILLIAM Primary Care Provider [phone] Encounter Details Date Type Department Care Team (Late st Contact Info) Description 03/22/2024 Lab Requisition [facility] Pathology & Laboratory Medicine - [address] [address] Consuelo Guerrero, DO [address] [facility] [facility] [address] [place], [place] [address] Diaphragmatic hernia without obstruction or gangrene; Anemia, [...] explore management options, if applicable. 03/24/2024 10:36 [facility] Final Diagnosis A. JEJUNUM, [...] Torres 03/22/2024 9:36 03/24/2024 10:36 EDT [facility] Resident/Estuardo w: Luis Felipe Brgag DO 03/24/2024 10:36 T [facility] Performing Lab [facility] 10:36 T [facility] Scanned Images 03/24/2024 10:36 T [facility] Tissue POLYP OF COLON [...] Guerrero DO PATHOLOGY ORDERABLES Final Re sult [facility] [address] [place] [address] documented in this encounter Visit Diagnoses Diagnosis Diaphragmatic hernia without obstruction or gangrene Diaphragmatic hernia without mention of obstruction or gangrene Anemia, unspecified documented in this encounter Care Teams Investor Relations Director Relationship Specialty Start Date End Date Ashley Chavez ARNP [address] [place] [address] PCP - General 07/11/10 documented as of this encounter
--- OUTSIDE RECORDS SUMMARY | 2024-07-13 14:07 | XMS_ITS | Encounter Summary ---
Author Organization [facility] Address [address] [place] [address] Care Team Providers Care Clay Caster Name Role Phone Ashley Chavez Primary Care Provider [phone] Encounter Details Date Type Department Care Team (Late st Contact Info) Description 12/17/2021 Lab Requisition [facility] Pathology & Laboratory Medicine - [address] [id number] Outr Resulting Lab, Provider Social History Tobacco [...] Ab Negative Negative 12/18/2021 10:37 EDT [facility] Blood VENOUS BLOOD / Unknown 12/17/2021 13:30 EDT 12/17/2021 21:32 EDT us Provider Outr Resulting Lab IMMUNOLOGY AND SEROL OGY ORDERABLES Final Result Performing Organization Address [facility] Co de Phone Number [facility] [address] [place] [address] * (ABNORMAL) ANTI NUCLEAR AB (FRANCISCO), IFA (12/17/2021 13:30 EDT) FRANCISCO Interpretation Positive(A) Negative 12/18/2021 16:06 EDT [facility] Comment: For titers greater [...] 1 1:1280 Speckled 12/18/2021 16:06 EDT [facility] Blood VENOUS BLOOD / Unknown 12/17/2021 13:30 EDT 12/17/2021 21:32 EDT Narrative [facility] - 12/18/2021 16:06 EDT Results were obtained with the INOVA NOVA Lite HEp-2 FRANCISCO Kit by indirect immunofluorescence. us Provider Outr Resulting Lab IMMUNOLOGY AND SEROL OGY ORDERABLES Final Result Performing Organization Address [facility] Co de Phone Number [facility] [address] [place] [address] documented in this encounter Visit Diagnoses Not on filedocumented in this encounter Care Teams Clay Caster Relationship Specialty Start Date End Date Ashley Chavez ARNP [address] [place], [place] [id number] PCP - General 07/11/10 documented as of this encounter
--- OUTSIDE RECORDS SUMMARY | 2024-07-13 14:07 | XMS_ITS | Encounter Summary ---
Author Organization [facility] Address [address] [place] [address] Care Team Providers Care Ultrasound Technologist Sonographer Name Role Phone Ashley Chavez Primary Care Provider [phone] Encounter Details Date Type Department Care Team (Late st Contact Info) Description 10/30/2022 Lab Requisition [facility] Pathology & Laboratory Medicine - [address] [address] Outr Resulting Lab, Provider Social History Tobacco [...] <30.0 IU/mL 11/03/2022 13:08 EDT [facility] Comment: ? Negative: ??<30.0 IU/mL ? Borderline Positive: ??30.0 - 75.0 IU/mL ? Positive: ??>75.0 IU/mL Results were obtained with the [employer] QUANTA Lite dsDNA SC DOMO assay on the [employer] DSX. Blood VENOUS BLOOD / Unknown 10/29/2022 14:00 EDT 10/30/2022 19:27 EDT Provider Outr Resulting Lab IMMUNOLOGY AND SEROL OGY ORDERABLES Final Result Performing Organization Address [facility] de Phone Number [facility] [address] [place] [address] * SM (MORENO) ANTIBODY (10/29/2022 14:00 EDT) SM (Moreno) Antibody 18.5 <20.0 Units 11/03/2022 14:26 EDT [facility] Comment: ? [...] OGY ORDERABLES Final Result Performing Organization Address [facility] de Phone Number [facility] [address] [place] [address] documented in this encounter Visit Diagnoses Not on filedocumented in this encounter Care Teams Ultrasound Technologist Sonographer Relationship Specialty Start Date End Date Ashley Chavez ARNP [address] [place] [address] PCP - General 07/11/10 documented as of this encounter
--- OUTSIDE RECORDS SUMMARY | 2024-07-13 14:07 | XMS_ITS | Encounter Summary ---
Author Organization [facility] Address [address] [place] [address] Care Team Providers Care Data Capture Clerk Name Role Phone Scott, Ashley WILLIAM Primary Care Provider [phone] Encounter Details Date Type Department Care Team (Late st Contact Info) Description 03/21/2024 Lab Requisition [facility] Pathology & Laboratory Medicine - [address] [address] Consuelo Guerrero, DO [address] [facility] [address] [place], [place] [address] Encounter for other general examination Social History [...] 13:00 EDT) LORY Negative 03/21/2024 22:31 EDT [facility] Blood VENOUS BLOOD / Unknown 03/21/2024 13:00 EDT 03/21/2024 21:51 EDT us Consuelo Guerrero DO BLOOD BANK TESTS Final Result Performing Organization Address City/State/[facility] Co de Phone Number [facility] [address] [place] [address] documented in this encounter Visit Diagnoses Diagnosis Encounter for other general examination documented in this encounter Care Teams Data Capture Clerk Relationship Specialty Start Date End Date Ashley Chavez ARNP [address] [place] [address] PCP - General 07/11/10 documented as of this encounter
--- OUTSIDE RECORDS SUMMARY | 2024-07-13 14:07 | XMS_ITS | Encounter Summary ---
Author Organization [facility] Address [address] [place] [address] Care Team Providers Care Transfusion Nurse Name Role Phone Ashley Chavez Primary Care Provider [phone] Encounter Details Date Type Department Care Team (Late st Contact Info) Description 03/21/2024 Lab Requisition [facility] Pathology & Laboratory Medicine - [address] [address] Outr Resulting Lab, Provider Social History Tobacco [...] 32 - 197 mg/dL 03/22/2024 10:25 EDT [facility] Blood VENOUS BLOOD / Unknown 03/21/2024 13:00 EDT 03/21/2024 21:50 EDT us Provider Outr Resulting Lab CHEMISTRY & BLOOD GA S ORDERABLES Final Result Performing Organization Address [facility]/State/ZIP Co de Phone Number [facility] [address] [place] [address] documented in this encounter Visit Diagnoses Not on filedocumented in this encounter Care Teams Transfusion Nurse Relationship Specialty Start Date End Date Ashley Chavez ARNP [address] [place] [address] PCP - General 07/11/10 documented as of this encounter
--- OUTSIDE RECORDS SUMMARY | 2024-07-13 14:07 | XMS_ITS | Encounter Summary ---
Author Organization [facility] Address [address] [place] [address] Care Team Providers Care Legal Technician Name Role Phone Unavailable Primary Care Provider Unavailabl e Encounter Details Date Type Department Care Team (Late st Contact Info) Description 04/20/2005 Results Only [facility] - Maple conversion [address] [place] [address] Ziggy Valiente MD [address] [place] [address] Social History Tobacco Use Types Packs/Day [...] ? PURNIMA THACKER ? Accession #: ? [id number] ? : ? 1955 (Age: 49) ??F [...] correlation with endoscopic appearance is recommended. (Dr. Chino)/[facility] Document reviewed and electronically signed [...] Final Resul t [facility] [address] [place] [address] documented in this encounter Visit Diagnoses Not on filedocumented in this encounter
--- OUTSIDE RECORDS SUMMARY | 2024-07-13 14:07 | XMS_ITS | Encounter Summary ---
Author Organization [facility] Address [address] [place] [address] Care Team Providers Care Wire Weaver Helper Name Role Phone Scott, Ashley WILLIAM Primary Care Provider [phone] Encounter Details Date Type Department Care Team (Late st Contact Info) Description 12/23/2016 Results Only [facility] [phone] Deborah Quiroga, TAIL BOARD MAN [address] [place] [phone] Social History Tobacco Use Types Packs/Day [...] ? PURNIMA THACKER ? Accession #: ? [id number] ? : ? 1955 (Age: 61) ??F ?Collect Date: ? 12/23/2016 ? Location: ? [facility] ? Receive Date: ? 12/25/2016 ? Provider: DEBORAH QUIROGA SALES TRAINING REPRESENTATIVE Copy to: ? Final Report SPECIMEN ADEQUACY ? Satisfactory for Evaluation - transformation zone component present GENERAL CATEGORIZATION ? Negative for Intraepithelial Lesion or Malignancy ?? Last Menstrual Period: years Specimen/Source: ??Pap Test, Cervix, ThinPrep Imaging System with manual evaluation Document reviewed and electronically signed by: ? oMnica Cason, [facility](ASCP) ? Report ??Date: 01/06/2017 09:11 HPV with Pap Test ? Date Ordered: ? 01/06/2017 ? Status: ?? Signed Out ?Date Complete: ? 01/07/2017 ? By: ??System Interface ? Date Reported: ? 01/07/2017 ? Interpretation RESULT: Negative for HPV. No E6 or E7 mRNA is detected from HPV types 16,18,31,33,35, 39,45,51,52,56,58, 59,66, and 68 by police cadet mediated amplification. Comments Document reviewed and electronically signed by: ? System Interface ? Report date: 01/07/2017 By the signature above, the attending physician certifies that he/she has personally conducted a gross and/or microscopic examination of the described specimens and rendered or confirmed the above diagnosis. End of Report [facility] 12/23/2016 12/25/2016 us Deborah Quiroga TAIL BOARD MAN PATHOLOGY ORDERABLES Final Re sult [facility] [address] [place] [address] documented in this encounter Visit Diagnoses Not on filedocumented in this encounter Care Teams Wire Weaver Helper Relationship Specialty Start Date End Date Ashley Chavez ARNP [address] [place] [address] PCP - General 07/11/10 documented as of this encounter
--- OUTSIDE RECORDS SUMMARY | 2024-07-13 14:07 | XMS_ITS | Encounter Summary ---
Author Organization [facility] Address [address] [place] [address] Care Team Providers Care Pulmonary Care Nurse Name Role Phone Scott, Ashley WILLIAM Primary Care Provider [phone] Encounter Details Date Type Department Care Team (Late st Contact Info) Description 05/12/2019 Results Only [facility] [phone] Nadira Gregorio MD [address] [place] [phone] Social History Tobacco Use Types Packs/Day [...] ? PURNIMA THACKER ? Accession #: ? [id number] ? : ? 1955 (Age: 63) ??F ? Collect Date: ? 05/12/2019 ? Location: ? [facility] ? Receive Date: ? 05/12/2019 ? Provider: NADIRA GREGORIO MD Copy to: WINTER HANKINS TITLE MANAGER ? Final Pathologic Diagnosis: COLON, CECUM, POLYP, [...] (ASCP) 05/12/2019 6:08 PM End of Report [facility] 05/12/2019 16:0 3 EDT 05/12/2019 16:03 EDT us Nadira Gregorio MD PATHOLOGY ORDERABLES Final Resul t [facility] [address] [place] [address] documented in this encounter Visit Diagnoses Not on filedocumented in this encounter Care Teams Pulmonary Care Nurse Relationship Specialty Start Date End Date Ashley Chavez ARNP [address] [place] [address] PCP - General 12/10/10 documented as of this encounter
--- OUTSIDE RECORDS SUMMARY | 2024-07-13 14:07 | XMS_ITS | Encounter Summary ---
Author Organization [facility] Address [address] [place] [address] Care Team Providers Care Apron Trimmer Name Role Phone Unavailable Primary Care Provider Unavailabl e Encounter Details Date Type Department Care Team (Late st Contact Info) Description 07/08/2010 Results Only [facility] Non-Invasive Cardiology - [facility] [address] [place], [place] [address] Ashley Chavez, WILLIAM [address] [place] [address] Social History Tobacco Use Types Packs/Day Years [...] ? PURNIMA THACKER ? Accession #: ? [id number] ? : ? 1955 (Age: 54) ??F [...] ORDERABLES Final Res ult PAUL ARELLANO [address] [place] [address] documented in this encounter Visit Diagnoses Not on filedocumented in this encounter
--- OUTSIDE RECORDS SUMMARY | 2024-07-13 14:07 | XMS_ITS | Encounter Summary ---
Author Organization [facility] Address [address] [place] [address] Care Team Providers Care Pulp Machine Operator Name Role Phone Unavailable Primary Care Provider Unavailabl e Encounter Details Date Type Department Care Team (Late st Contact Info) Description 06/29/2007 Results Only [facility] - Maple conversion [address] [place] [address] Sánchez Acevedo MD [address] [place] [address] Social History Tobacco Use Types Packs/Day Years [...] ? PURNIMA THACKER ? Accession #: ? [id number] ? : ? 1955 (Age: 51) ??F [...] covered by a smooth white serosa. ??Three telecommunications sales representative sections of the gallbladder are submitted in one cassette. ??(Sriram Scott)/[facility] End of Report [facility] 06/29/2007 06/29/2007 21: 23 EST us Sánchez Acevedo MD PATHOLOGY ORDERABLES Final Result Performing Organization Address City/State/[facility] Co de Phone Number PAUL [address] [address] documented in this encounter Visit Diagnoses Not on filedocumented in this encounter
--- OUTSIDE RECORDS SUMMARY | 2024-07-13 14:07 | XMS_ITS | Encounter Summary ---
Author Organization [facility] Address [address] [place] [address] Care Team Providers Care Stem Cutter Name Role Phone Ashley Chavez Primary Care Provider [phone] Encounter Details Date Type Department Care Team (Late st Contact Info) Description 05/12/2022 Lab Requisition [facility] Pathology & Laboratory Medicine - [address] [address] Outr Resulting Lab, Provider Social History Tobacco [...] 14:32 EDT) Hold Hold 05/12/2022 22:46 EDT [facility] Blood VENOUS BLOOD / Unknown 05/12/2022 14:32 EDT 05/12/2022 21:40 EDT us Provider Outr Resulting Lab LAB INFO SERVICE AND SUPPORT & PHONE RESULT Final Result Performing Organization Address [facility] Co de Phone Number [facility] [address] [place] [address] * (ABNORMAL) HOMOCYSTEINE (05/12/2022 14:32 EDT) Homocysteine 14.7(H) 5.0 - 13.9 umol/L 05/13/2022 9:05 EDT [facility] Comment:Results may be false ly elevated if sample is not collected on ice or is not removed from cells within 1 hour of collection. Blood VENOUS BLOOD / Unknown 05/12/2022 14:32 EDT 05/12/2022 21:40 EDT Narrative [facility] - 05/13/2022 9:05 EDT Reference [...] S ORDERABLES Final Result Performing Organization Address [facility] Co de Phone Number [facility] [address] [place] [address] * HAPTOGLOBIN (05/12/2022 14:32 EDT) Haptoglobin 138 32 - 197 mg/dL 05/13/2022 9:55 EDT [facility] Blood VENOUS BLOOD / Unknown 05/12/2022 14:32 EDT 05/12/2022 21:36 EDT us Provider Outr Resulting Lab CHEMISTRY & BLOOD GA S ORDERABLES Final Result Performing Organization Address [facility]/State/ZIP Co de Phone Number [facility] [address] [place] [address] * (ABNORMAL) ANTI NUCLEAR AB (FRANCISCO), IFA (05/12/2022 14:32 EDT) FRANCISCO Interpretation Positive(A) Negative 05/13/2022 14:44 EDT [facility] Comment: Result is equal to or greater than 1:5120. For titers greater than or equal to 1:160 (except the centromere, nucleolar, and dense fine speckled patterns) it is recommended that specific, follow-up autoantibody testing (such as for dsDNA and Extractable Nuclear Antigens) be performed on all diffuse and/or speckled patterns. FRANCISCO Titer and Pattern 1 1:5120 Speckled 05/13/2022 14:44 EDT [facility] Blood VENOUS BLOOD / Unknown 05/12/2022 14:32 EDT 05/12/2022 21:36 EDT Narrative [facility] - 05/13/2022 14:44 EDT Results were obtained with the INOVA NOVA Lite HEp-2 FRANCISCO Kit by indirect immunofluorescence. us Provider Outr Resulting Lab IMMUNOLOGY AND SEROL OGY ORDERABLES Final Result [facility] [address] [place] [address] documented in this encounter Visit Diagnoses Not on filedocumented in this encounter Care Teams Stem Cutter Relationship Specialty Start Date End Date Ashley Chavez ARNP [facility] [place] [address] PCP - General 07/11/10 documented as of this encounter
--- OUTSIDE RECORDS SUMMARY | 2024-07-13 14:07 | XMS_ITS | Encounter Summary ---
Author Organization [facility] Address [address] [place] [address] Care Team Providers Care Archives Technician Name Role Phone Ashley Chavez Primary Care Provider [phone] Encounter Details Date Type Department Care Team (Late st Contact Info) Description 04/29/2022 Lab Requisition [facility] Pathology & Laboratory Medicine - [address] [address] Outr Resulting Lab, Provider Social History Tobacco [...] <20.0 Units 04/30/2022 12:23 EDT [facility] Comment: ? Negative: <20.0 [...] OGY ORDERABLES Final Result Performing Organization Address [facility] de Phone Number [facility] [address] [place] [address] * SSA ANTIBODIES BY DOMO (04/29/2022 7:51 EDT) SSA Antibody 1.5 <20.0 Units 04/30/2022 12:22 EDT [facility] Comment: ? Negative: <20.0 [...] OGY ORDERABLES Final Result Performing Organization Address [facility] de Phone Number [facility] [address] [place] [address] documented in this encounter Visit Diagnoses Not on filedocumented in this encounter Care Teams Archives Technician Relationship Specialty Start Date End Date Ashley Chavez ARNP [address] [place] [address] PCP - General 07/11/10 documented as of this encounter
--- OUTSIDE RECORDS SUMMARY | 2024-07-13 14:07 | XMS_ITS | Encounter Summary ---
Author Organization [facility] Address [address] [place] [address] Care Team Providers Care Bridge Teacher Name Role Phone Ashley Chavez Primary Care Provider [phone] Encounter Details Date Type Department Care Team (Late st Contact Info) Description 01/07/2023 Lab Requisition [facility] Pathology & Laboratory Medicine - [address] [address] Outr Resulting Lab, Provider Social History Tobacco [...] 56.2 55.8 - 66.1 % 01/08/2023 11:28 [facility] Albumin g/dL 3.9 3.6 - 5.2 g/dL 01/08/2023 11:28 [facility] Alpha-1 % 5.1(H) 2.9 - 4.9 % 01/08/2023 11:28 [facility] Alpha-1 g/dL 0.40 0.15 - 0.40 g/dL 01/08/2023 11:28 [facility] Alpha-2 % 7.0(L) 7.1 - 11.8 % 01/08/2023 11:28 [facility] Alpha-2 g/dL 0.50 0.50 - 1.00 g/dL 01/08/2023 11:28 [facility] Beta % 12.7 8.4 - 13.1 % 01/08/2023 11:28 [facility] Beta g/dL 0.90 0.60 - 1.20 g/dL 01/08/2023 11:28 [facility] Gamma % 19.0(H) 11.1 - 18.8 % 01/08/2023 11:28 [facility] Gamma g/dL 1.30 0.60 - 1.60 g/dL 01/08/2023 11:28 [facility] SPEP Comment No apparent monoclonal protein seen on serum electrophoresis 01/08/2023 11:28 [facility] Comment:See scanned/suppleme ntary report. Total Protein 6.9 6.3 - 8.2 g/dL 01/08/2023 11:28 [facility] Blood VENOUS BLOOD / Unknown 01/06/2023 14:40 EDT 01/07/2023 17:37 EDT us Provider Outr Resulting Lab CHEMISTRY & BLOOD GA S ORDERABLES Final Result Performing Organization Address [facility] de Phone Number [facility] [address] [place] [address] * PROTEIN, TOTAL (01/06/2023 14:40 EDT) Blood VENOUS BLOOD / Unknown 01/06/2023 14:40 EDT 01/07/2023 17:37 EDT us Provider Outr Resulting Lab CHEMISTRY & BLOOD GA S ORDERABLES Final Result Performing Organization Address [facility] de Phone Number [facility] [address] [place] [address] * (ABNORMAL) EXTRACTABLE NUCLEAR ANTIGEN PANEL (01/06/2023 14:40 EDT) SSA Antibody 1.3 <20.0 Units 01/08/2023 15:42 EDT [facility] Comment: ? Negative: <20.0 Units ? Weak Positive: 20.0 - 39.9 Units ? Moderate Positive: 40.0 - 80.0 Units ? Strong Positive: >80.0 Units Results were obtained with the Handshake QUANTA Lite SS-A DOMO. ??SS-A values obtained [...] >80.0 Units Results were obtained with the Cne[employer]VA QUANTA Lite SS-B DOMO. ??SS-B values obtained [...] cannot be correlated to an endpoint titer. [facility] Antibody 149.1(H) <20.0 Units 01/08/2023 15:42 [facility] Comment: ? Negative: <20.0 Units ? Weak Positive: 20.0 - 39.9 Units ? Moderate Positive: 40.0 - 80.0 Units ? Strong Positive: >80.0 Units Results were obtained with the Inova Quanta Lite [facility] DOMO. [facility] values obtained with different gas inspector's assay methods may not be used interchangeaby. ??The magnitude of the reported IgG levels cannot be be correlated to an endpoint titer. A positive result in the Quanta Lite [facility] DOMO indicates the presence of antibodies reactive with the [facility]/Sm complex but cannot distinguish between anti-Sm and anti-[facility] activity. Blood VENOUS BLOOD / Unknown 01/06/2023 14:40 EDT 01/07/2023 17:37 EDT us Provider Outr Resulting Lab IMMUNOLOGY AND SEROL OGY ORDERABLES Final Result [facility] [address] [place] [address] * (ABNORMAL) ANTI NUCLEAR AB (FRANCISCO), IFA [...] IMMUNOLOGY AND SEROL OGY ORDERABLES Final Result [facility] [address] [place] [address] documented in this encounter Visit Diagnoses Not on filedocumented in this encounter Care Teams Bridge Teacher Relationship Specialty Start Date End Date Ashley Chavez ARNP [address] [place] [address] PCP - General 07/11/10 documented as of this encounter
--- OUTSIDE RECORDS SUMMARY | 2024-07-13 14:08 | XMS_ITS | Encounter Summary ---
[place] [address] Care Team Providers Care Jacquard Loom Fixer Name Role Phone Magdalena Acosta MD Primary Care Provider [phone] Encounter Details Date Type Department Care Team (Late st Contact Info) Description 05/18/2024 Interpretation Only [address] [address] Magdalena Acosta MD [address] [place], [place] [id number] Social History Tobacco Use Types Packs/Day Years [...] 11/02/2024 12:00 PM EDT Appointment [place] [address] 11/02/2024 1:00 PM EDT Office [place] [address] Magdalena Peralta MD [facility] [place] [address] 03/01/2025 4:15 PM EDT Office Visit Dermatology at [place] [address] [place] [phone] Marek Bonilla MD [address], [place] [address] documented as of this encounter Procedures Procedure Name Priority Date/Time Associated Diagnosis Comments DXA CENTRAL SPINE, HIP, AND/OR WHOLE BODY (GENERIC) Routine 05/18/2024 11:21 AM EDT documented in this encounter Results * DXA Central Spine, Hip, and/or Whole Body (Generic) (05/18/2024 11:21 AM EDT) PT CLASS O RAD ADMITDTTM [id number] [facility] PT [facility] INFO [id number]^Dave ^Magdalena RAD EXAM DESC XDXAC^BD Bone Density DEXA Axial Skeleton^RIS [facility] WORKSTATION ID [id number] [facility] Anatomical Region Laterality Modality C-spine, Hip N/A [...] questions please contact the health acute care assistant that requested your imaging first. ? Electronically signed by: Rocael Villatoro MD, [facility] ([phone]), at 05/18/2024 11:25 AM Narrative 05/18/2024 11:25 [...] have questions please contactthe health acute care assistant that requested your imaging first. Magdalena Acosta MD IMG DEXA ORDERABLES documented in this encounter Visit Diagnoses Not on filedocumented in this encounter Care Teams Jacquard Loom Fixer Relationship Specialty Start Date End Date Magdalena Acosta MD [address] [place] [address] PCP - General Family Medicine 02/05/23 documented as of this encounter
--- OUTSIDE RECORDS SUMMARY | 2024-07-13 14:08 | XMS_ITS | Encounter Summary ---
Author Organization [facility] [place] [address] Care Team Providers Care Global Supply Chain Director Name Role Phone Magdalena Acosta MD Primary Care Provider [phone] Encounter Details Date Type Department Care Team [...] 11/02/2024 12:00 PM EDT [place] [phone] 11/02/2024 1:00 PM EDT [place] [address] Magdalena Peralta MD [facility] [place] [address] 03/01/2025 4:15 PM EDT Office Visit Dermatology at [place] [address] [place] [address] Marek Bonilla MD [address], [place] [address] documented as of this encounter Visit Diagnoses Not on filedocumented in this encounter Care Teams Global Supply Chain Director Relationship Specialty Start Date End Date Magdalena Acosta MD [address] [place] [address] PCP - General Family Medicine 02/05/23 documented as of this encounter
--- OUTSIDE RECORDS SUMMARY | 2024-07-13 14:08 | XMS_ITS | Encounter Summary ---
Author Organization [facility] [place] [address] Care Team Providers Care Director Of Recruitment And Admissions Name Role Phone Magdalena Acosta MD Primary Care Provider [phone] Encounter Details Date Type Department Care Team (Late st Contact Info) Description 06/05/2024 2:00 PM EST - 06/05/2024 3:00 PM EST Surgery [facility] [place] [address] Markel Borjas MD [facility] [address] [place] [address] ([facility]C MSURG) BONE MARROW BIOPSY AND ASPIRATION; [...] 5pm or on a weekend: Call the [facility] national van owner operator at and ask for the physician program control analyst covering for your doctor. Instructions following sedation [...] drainage occurs, please [place] [address] [email or web address] [facility] documented in this encounter [...] topically 2 times daily as needed. 10/22/2022 [employer] Verio test strips Strip USE DAILY 01/03/2022 [employer] Delica Plus Lancet 33 gauge Misc USE [...] 11/02/2024 12:00 PM EDT Appointment [place] [address] 11/02/2024 1:00 PM EDT Office [place] [phone] Magdalena Peralta MD [facility] [place] [address] 03/01/2025 4:15 PM EDT Office Visit Dermatology at [place] [address] [place] [phone] Marek Bonilla MD [address], [place] [address] documented as of this encounter Procedures Procedure [...] EST Diagnostic Bone Marrow Biopsies & Aspirations ([address]) 06/05/2024 2:03 PM EST Anemia, in pt with longstanding neutropenia CBC (WITH DIFF) Routine 06/05/2024 1:45 PM EST ([facility] MSURG) BONE MARROW BIOPSY AND ASPIRATION; DIAGNOSTIC Routine 06/05/2024 1:07 PM EST documented in this encounter Results * Myelodysplastic Syndrome (MDS) FISH Panel (06/05/2024 2:22 PM EST) Specimen Condition adequate 06/08/2024 11:23 PM [facility] Indication for Study Anemia, in patient with presumed hx of benign neutropenia 06/08/2024 11:23 PM [facility] FISH Panel Summary NEGATIVE for all FISH Panel markers 06/08/2024 11:23 PM [facility] FISH Results 5q deletion, monosomy 5, 7q deletion, monosomy 7, trisomy 8, and 20q deletion NOT DETECTED. 06/08/2024 11:23 PM [facility] ISCN Nomenclature nuc josselin(D5S23,EGR1)x2[ 200],(D7Z1,D2S643) x2[200],(D8Z2,D20S 108)x2[200] 06/08/2024 11:23 PM [facility] Culture Type Direct Delmar 06/08/20 11:23 PM [facility] FISH Method Interphase 06/08/2024 11:23 PM [facility] Interpretation Interphase FISH analysis using [...] analysis using probes for CEP7/D7Z1/7p11.1q1 1.1 and J7W888/7q31 loci ([employer] shows 1.5% and 0% of 200 cells with 7q signal deletion (7q-) and chromosome 7 signal loss (monosomy 7) patterns, respectively. These are within acceptable reference limits (7q deletion: 0-6.3%; monosomy 7: 0-4.4%). Thus, there is no evidence for 7q deletion and monosomy 7. Interphase FISH analysis using probes for CEP8/D8Z2/8p11.1q1 1.1 and U33J082/20q12 loci ([employer] shows 0% and 2.5% of 200 cells with a chromosome 8 signal gain and 20q signal deletion patterns, respectively. These are within acceptable reference limits (trisomy 8: 0-5.1%; 20q deletion: 0-6.3%). Thus, there is no evidence for trisomy 8 and 20q deletion. Correlation with clinical and pathological studies is suggested. 06/08/2024 11:23 PM [facility] Technical Methods FISH is performed [...] The FISH probes are directly-labeled by the wool hat hydraulicker ([employer]) with either a spectrum orange, green, or aqua fluorochrome. Cells are stained with DAPI ([employer]), visualized through fluorescence microscopy, and images captured on the CytoVision software ([employer]). Results are reported based on an International System for Human Cytogenomic Nomenclature. 06/08/2024 11:23 PM [facility] Limitations & Disclaimers The FISH test was developed and its performance characteristics were determined by the [facility] ([facility]) Cytogenetics Laboratory as required by The Clinical [...] verified the test's accuracy and precision. The [facility] Cytogenetics Laboratory is certified under the CLIA'88 as qualified to perform high complexity clinical laboratory testing. Chromosome alterations outside the regions complementary to these DNA FISH probes will not be detected. 06/08/2024 11:23 PM EST [facility] Sign-out by Professional component performed by Lizette Bullock, Ph.D., [facility], [address], [place], [place] (CLIA #: [id number]). 06/08/2024 11:23 PM EST [facility] Bone Marrow Non Blood Collection / Unknown 06/05/2024 2:22 PM EST 06/05/2024 3:07 PM EST Georges Boucher MD MOLECULAR ORDERABLES Performing Organization Address City/[facility]/ZIP Co de Phone Number [facility] [place] [address] * Chromosome Analysis, Acquired ([facility]) (06/05/2024 2:22 PM EST) Pathologist [facility] Chromosome, Leukemia/Lymph ananya ([facility]) See Scanned Result 06/14/2024 6:28 PM EST REF [facility] Specimen Condition ([facility]) 06/14/2024 6:28 PM EST REF [facility] Bone Marrow Non Blood Collection / Unknown 06/05/2024 2:22 PM EST 06/05/2024 3:07 PM EST Georges Boucher MD LAB SEND OUT ORDERAB LES REF [facility] [address] [place] [address], [facility] * HemeSeq (Bone Marrow) (06/05/2024 2:22 PM EST) Pathologist [facility] NGS Report Status Normal 06/13/2024 10:21 AM EST [facility] Bone Marrow Non Blood Collection / Unknown 06/05/2024 2:22 PM EST 06/05/2024 3:07 PM EST Georges Boucher MD MOLECULAR ORDERABLES [facility] [place] [address] * Immunophenotyping Flow Cytometry (06/05/2024 2:22 PM EST) Final Diagnosis - No monotypic B-cell population, no monotypic plasma cell population, no phenotypically abnormal T-cell population or increase in blasts is detected. 06/06/2024 2:08 PM [facility] Signing Pathologist This result has [...] blast populations identified. 06/06/2024 2:08 PM EST [facility] Lymphocyte % 4.7 % 06/06/2024 2:08 PM EST [facility] Monocyte % 3.0 % 06/06/2024 2:08 PM EST [facility] Granulocyte % 76.0 % 06/06/2024 2:08 PM [facility] CD45 DIM % 0.9 % 06/06/2024 2:08 PM [facility] CD38 Bright/CD138+ 0.2 % 06/06/2024 2:08 PM [facility] CD3+ % 70.0 % 06/06/2024 2:08 PM [facility] CD19+ % 17.0 % 06/06/2024 2:08 PM [facility] CD56+ % 12.0 % 06/06/2024 2:08 PM [facility] B-Cell:T-Cell Ratio 0.2 06/06/2024 2:08 PM [facility] Filley:Lambda Ratio 1.8 06/06/2024 2:08 PM [facility] CD4:CD8 Ratio 1.6 06/06/2024 2:08 PM [facility] Specimen Processing Cells for immunophenotypic analysis were derived from bone marrow. The following markers were assessed: CD2, CD3, CD4, CD5, CD7, CD8, CD10, CD19, CD20, CD38, CD45, CD56, CD138, kappa light chain, (c)kappa light chain, lambda light chain, (c)lambda light chain,CD13, CD14, CD34, CD45, CD117, and HLA-DR. 06/06/2024 2:08 PM [facility] Disclaimer Flow analysis is an ancillary study. A definite diagnosis requires correlation with the morphologic features of this process and if necessary, correlation with other ancillary studies like immunohistochemist ry, enzyme cytochemistry and/or cyto/molecular genetics. This test was developed and its performance characteristics determined by the Clinical Flow Cytometry Laboratory at [facility]. It has not been cleared [...] complexity clinical laboratory testing. 06/06/2024 2:08 PM [facility] Bone Marrow Non Blood Collection / Unknown 06/05/2024 2:22 PM EST 06/05/2024 3:07 PM EST Georges Boucher MD HEMATOLOGY ORDERABLE S Performing Organization Address [facility] [place] [address] * BM HOLD CYTOGENETICS/FISH (06/05/2024 2:22 PM EST) Bone Marrow Non Blood Collection / Unknown 06/05/2024 2:22 PM EST 06/05/2024 3:07 PM EST Narrative [facility] - 06/06/2024 10:47 AM EST ~3ml Markel Borjas MD PATHOLOGY/CYTOLOGY ORDERABLES Performing Organization Address [facility] [place] [address] * BM HOLD FLOW/MOLECULAR (06/05/2024 2:22 PM EST) Bone Marrow Non Blood Collection / Unknown 06/05/2024 2:22 PM EST 06/05/2024 3:07 PM EST Markel Borjas MD PATHOLOGY/CYTOLOGY ORDERABLES Performing Organization Address [facility] de Phone Number [facility] [place] [address] * Bone Marrow (06/05/2024 2:22 PM EST) Case Report Bone Marrow Patholog y Report ?Case: [id number] ? Authorizing Provider: ??Markel Borjas MD ?Collected: ? 06/05/2024 1422 ? Ordering Location: ? [facility] ??Received: ?06/05/2024 1508 ? [facility] ? Pathologist: ? [...] Clinical correlation is recommended. 4 1:31 PM [facility] Addendum electronically signed by Georges Boucher MD on 06/22/2024 at 1:31 PM Final Diagnosis BONE MARROW (BLOOD FILM, ASPIRATE, TOUCH PREP, CORE & CLOT SECTIONS): 1. Normocellular bone marrow with maturing trilineage hematopoiesis. No overt dysplasia or increased blasts. 2. Ancillary studies pending. 1:31 PM [facility] Discussion The patient's histor y [...] integrated report to follow. 4 1:31 PM [facility] Additional Studies Task ID IHC/Special Stains Result B1-3 Myeloperoxidase Highlights granulocytic precursors. B1-4 CD34 Highlights rare blasts (<5% of cells) B1-5 CD117 Highlights rare mast cells. B1-6 E-Cadherin Highlights normal erythroid precursors. B1-7 CD61 Highlights normal megakaryocytes. 4 1:31 PM [facility] Clinical Information Anemia, in patient with presumed hx of benign neutropenia 4 1:31 PM [facility] Gross Description A. Iliac Crest, Left. Number of Lavender (EDTA) tubes: 3 Total Volume of Lavender (EDTA) tubes: 8 ml Number of Green (NaHep) tubes: 1 Total Volume of Green (NaHep) tubes: 3 ml Spicule/Clot Section submitted? Present Tube to Biorepository? Present Processed by: Abbie Barrow Collected off the [facility] by: N/A B. Iliac Crest, [...] 1 cassette labeled C1. CCP 1:31 PM [facility] Disclaimer(s) Formalin-fixed, paraffin-embedded tissue sections [...] criteria and other diagnostic tests. 1:31 PM [facility] Bone Marrow Aspirate Adequacy: Smear/touch [...] stores present, no ring sideroblasts. 1:31 PM [facility] Bone Marrow Biopsy and/or Clot [...] normal for age. 4 1:31 PM EST [facility] Bone Marrow Differential Band/Seg 34%; Lymph 8%; [place] 0%; Eos 2%; Baso 1%; Metamyelocyte 13%; Myelocyte 9%; Promyelocyte 2%; Blast 1%; nRBC's 27%; Plasma cell 3% 4 1:31 PM [facility] Result Note Routine 1:31 PM [facility] Peripheral Blood Morphology RBCs: Mildly macrocytic anemia with rare target cells, ovalocytes. WBCs: Unremarkable. Platelets: Rare large platelet form present. 1:31 PM [facility] STRUCTURE OF LEFT ILIAC CREST / Unknown 06/05/2024 2:22 PM EST 06/05/2024 3:08 PM EST STRUCTURE OF LEFT ILIAC CREST / Unknown 06/05/2024 2:22 PM EST 06/05/2024 3:08 PM EST STRUCTURE OF LEFT ILIAC CREST / Unknown 06/05/2024 2:22 PM EST 06/05/2024 3:08 PM EST Markel Borjas MD PATHOLOGY/CYTOLOGY ORDERABLES [facility] [place] [address] * (ABNORMAL) CBC (with Diff) (06/05/2024 1:45 PM EST) White Blood Cell 3.06(L) 4.00 - 9.50 x10(3)/mc L 06/05/2024 2:38 PM EST [facility] Red Blood Cell 3.35(L) 4.00 - 5.21 x10(6)/mc L 06/05/2024 2:38 PM [facility] Hemoglobin 11.0(L) 11.7 - 15.5 g/dL 06/05/2024 2:38 PM [facility] Hematocrit 33.4(L) 35.7 - 45.8 % 06/05/2024 2:38 PM [facility] Mean Cell Volume 99.7(H) 82.6 - 94.4 fL 06/05/2024 2:38 PM [facility] Mean Cell Hemoglobin 32.8(H) 27.1 - 32.0 pg 06/05/2024 2:38 PM [facility] Mean Cell Hemoglobin Concentration 32.9 31.7 - 35.0 g/dL 06/05/2024 2:38 PM [facility] Platelet 151 145 - 357 x10(3)/mc L 06/05/2024 2:38 PM [facility] Mean Platelet Volume 8.9 7.6 - 12.9 fL 06/05/2024 2:38 PM [facility] RDW Standard Deviation 44.3 37.0 - 46.0 fL 06/05/2024 2:38 PM [facility] RDW coefficient of variation 12.0 11.5 - 14.1 % 06/05/2024 2:38 PM [facility] NRBC% auto 0.0 % 06/05/2024 2:38 PM [facility] NRBC Absolute <0.01 <0.01 x10(3)/mc L 06/05/2024 2:38 PM [facility] Neutrophil % 62.8 % 06/05/2024 2:38 PM [facility] Neutrophil Absolute (ANC) - Automated 1.92 1.70 - 6.10 x10(3)/mc L 06/05/2024 2:38 PM [facility] Lymph % 20.9 % 06/05/2024 2:38 PM [facility] Lymph Absolute 0.64(L) 0.90 - 3.20 x10(3)/mc L 06/05/2024 2:38 PM EST [facility] Monocyte % 15.0 % 06/05/2024 2:38 PM [facility] Monocyte Absolute 0.46 0.30 - 0.90 x10(3)/mc L 06/05/2024 2:38 PM EST [facility] Eos % 0.3 % 06/05/2024 2:38 PM [facility] Eos Absolute <0.04 0.00 - 0.40 x10(3)/mc L 06/05/2024 2:38 PM EST [facility] Basophil % 0.7 % 06/05/2024 2:38 PM [facility] Baso Absolute <0.04 0.00 - 0.10 x10(3)/mc L 06/05/2024 2:38 PM [facility] Immature Gran % 0.3 % 2:38 PM [facility] Immature Gran Absolute <0.04 0.00 - 0.04 x10(3)/mc L 06/05/2024 2:38 PM [facility] Blood VENOUS BLOOD SPECIMEN / Unknown Venipuncture / Unknown 06/05/2024 1:45 PM EST 06/05/2024 1:59 PM EST Markel Borjas MD HEMATOLOGY ORDERAB LES [facility] [place] [place] [address] documented in this encounter Visit Diagnoses Not [...] in this encounter Care Teams Director Of Recruitment And Admissions Relationship Specialty Start Date End Date Magdalena Acosta MD [address] [place] [address] PCP - General Family Medicine 02/05/23 documented as of this encounter
--- OUTSIDE RECORDS SUMMARY | 2024-07-13 14:08 | XMS_ITS | Encounter Summary ---
Author Organization [facility] [place] [address] Care Team Providers Care Vp Strategic Partnerships Name Role Phone Magdalena Acosta MD Primary Care Provider [phone] Encounter Details Date Type Department Care Team [...] 11/02/2024 12:00 PM EDT Appoint[place] [address] 11/02/2024 1:00 PM EDT Office [place] [address] [facility] [place] [address] 03/01/2025 4:15 PM EDT Office Visit Dermatology at [place] [address] [place] [address] Marek Bonilla MD [address], [place] [address] documented as of this encounter Visit Diagnoses Not on filedocumented in this encounter Care Teams Vp Strategic Partnerships Relationship Specialty Start Date End Date Magdalena Acosta MD [address] [place] [address] PCP - General Family Medicine 02/05/23 documented as of this encounter
--- OUTSIDE RECORDS SUMMARY | 2024-07-13 14:08 | XMS_ITS | Encounter Summary ---
Author Organization [facility] [place] [address] Care Team Providers Care Used Car Manager Name Role Phone Magdalena Acosta MD Primary Care Provider [phone] Reason for Visit * Reason Comments Aortic Stenosis Coronary Artery Disease Hypertension Encounter Details Date Type Department Care Team (Latest Contact Info) Description 11/16/2023 11:40 AM EDT TH Visit (TeleHealth) Cardiology at [address] [address] Jay Maza PA [facility] [place] [address] Aortic valve stenosis, etiology of cardiac valve disease unspecified; Coronary artery disease, unspecified vessel or lesion type, unspecified whether angina present, unspecified whether [place] or transplanted heart Social History Tobacco Use [...] from the original note were not included. [facility] Interventional Cardiology CARDIOLOGY TELE VISIT NOTE 11/16/23 Patient: Purnima Thacker Prior to the initiation of our discussion, the risks and benefits of tele health visits were discussed, and the patient consented verbally to this being a virtual telehealth visit in lieu of an in person office visit. CARDIOLOGISTS: Antelmo Sharma MD ([facility] Cards) Maria Luz Mejia MD ([facility] Cards - [facility]) Problem List: [...] disease by [facility] 11/09/2022 I25.10 Heart failure with reduced [...] notable for coronary artery protection given low lhfgc-wi-fwxmfmtm distance. There was no obstruction post Valve [...] leads Confirmed by MD Harshil, Haris Bell ([id number]) on 05/10/2023 8:11:46 AM Cardiac Cath 11/09/2022 [...] in one year. EKATERINA Thompson Time spent: [id number] 0-5min [id number] 6-10min 0887UKH9 11-15min x 8421BYR9 16-20min 4324MUU4 21-30min 4276HIY3 31-40min 0154QDT6 40+ min Jay Maza PA-C Interventional Cardiology [facility] Pager [phone] documented in this encounter Plan of Treatment Upcoming Encounters Date Type Department Care Team (Late st Contact Info) Description 11/02/2024 12:00 PM EDT Appointment [place] [address] 11/02/2024 1:00 PM EDT Office Visit [place] [address] Magdalena Peralta MD [facility] [place] [address] 03/01/2025 4:15 PM EDT Office Visit Dermatology at [place] [address] [place] [address] Marek Bonilla MD [address], [place] [address] documented as of this encounter Visit Diagnoses Diagnosis Aortic valve stenosis, etiology of cardiac valve disease unspecified Coronary artery disease, unspecified vessel or lesion type, unspecified whether angina present, unspecified whether [place] or transplanted heart documented in this encounter Care Teams Used Car Manager Relationship Specialty Start Date End Date Magdalena Acosta MD [address] [place] [address] PCP - General Family Medicine 02/05/23 documented as of this encounter
--- OUTSIDE RECORDS SUMMARY | 2024-07-13 14:08 | XMS_ITS | Encounter Summary ---
[place] [address] Care Team Providers Care Buckle Sewer Machine Name Role Phone Magdalena Acosta MD Primary Care Provider [phone] Encounter Details Date Type Department Care Team (Latest Contact Info) Description 10/05/2023 10:52 AM EST - 10/05/2023 11:59 PM [facility] Hospital En[place] [address] Mixed connective tissue disease Discharge Disposition: Home [...] topically 2 times daily as needed. 10/22/2022 [employer] Verio test strips Strip USE DAILY 01/03/2022 [employer] Delica Plus Lancet 33 gauge Misc USE [...] 11/02/2024 12:00 PM EDT Appointment [place] [address] 11/02/2024 1:00 PM EDT Office [place] [address] Magdalena Peralta MD [facility] DR RHEUMATOLOGY DEPT [place], [place] [address] 03/01/2025 4:15 PM EDT Office Visit Dermatology at [place] [address] [place] [address] Marek Bonilla MD [address], [place] [address] documented as of this encounter Procedures Procedure [...] PFT FEV1/FVC Pre-BD Z-Score 0 COMPAS PFT EGI39-65 Actual Pre-BD 2.41 % COMPAS PFT QUU59-76 Predicted 1.8 % COMPAS PFT MGO63-84 Pre-BD % of Predicted 134 % COMPAS PFT EZN16-96 Pre-BD Z-Score 0.81 COMPAS PFT DLCO Hb [...] tissue documented in this encounter Care Teams Buckle Sewer Machine Relationship Specialty Start Date End Date Magdalena Acosta MD [address] [place] [address] PCP - General Family Medicine 02/05/23 documented as of this encounter
--- OUTSIDE RECORDS SUMMARY | 2024-07-13 14:08 | XMS_ITS | Encounter Summary ---
[place] [address] Care Team Providers Care Food Sales Clerk Name Role Phone Magdalena Acosta MD Primary Care Provider [phone] Encounter Details Date Type Department Care Team (Late st Contact Info) Description 05/18/2024 Interpretation Only [address] [address] Magdalena Acosta MD [address] [place], [place] [id number] Social History Tobacco Use Types Packs/Day Years [...] EDT Appointment [place] [address] 11/02/2024 1:00 PM EDT Office [place] [address] Magdalena Peralta MD [facility] [place] [address] 03/01/2025 4:15 PM EDT Office Visit Dermatology at [place] [address] [place] [address] Marek Bonilla MD [address], [place] [address] documented as of this encounter Procedures Procedure Name Priority Date/Time Associated Diagnosis Comments MAMMO SCREENING CAD BILATERAL (CH) Routine 05/18/2024 11:21 AM EDT documented in this encounter Results * MAMMO SCREENING CAD BILATERAL (CH) (05/18/2024 11:21 AM EDT) PT CLASS O RAD ADMITDTTM [id number] RAD PT RAD INFO [id number]^Dave ^Magdalena RAD EXAM DESC MADDSCCH^MG Mammo Digital [...] by: Rocael Villatoro MD, [facility] ([phone]), at 05/18/2024 3:[address] ??[phone] Narrative 05/18/2024 3:05 PM EDT EXAMINATION: MG [...] care worker that requested [place] [address] Magdalena Acosta MD [facility] documented in this encounter Visit Diagnoses Not on filedocumented in this encounter Care Teams Food Sales Clerk Relationship Specialty Start Date End Date Magdalena Acosta MD [address] [place] [address] PCP - General Family Medicine 02/05/23 documented as of this encounter
--- OUTSIDE RECORDS SUMMARY | 2024-07-13 14:08 | XMS_ITS | Encounter Summary ---
[place] [address] Care Team Providers Care Heating Engineer Name Role Phone Magdalena Acosta MD Primary Care Provider [phone] Reason for Visit * Reason Onset Date Comments Pre Procedure Call 03/01/2024 DAPT hold for EGD and colo? Encounter Details Date Type Department Care Team (Late st Contact Info) Description 03/01/2024 Telephone Cardiology at [address] [address] Cynthia Monsalve RN Pre Procedure Call (DAPT [...] safe. Jay Message above left with Yenifer (hospital aide), who would be leaving this note in patient's chart for providers to schedule patient. No further questions or needs at this time. This nurse stated, note will be placed regarding this call in our chart for patient. Kezia Whitney RN, BSN Ambulatory Cardiology Clinic, [facility] [phone] * Telephone Encounter - Cynthia Monsalve RN [...] PM EDT Appointment Pulmonology at [place] [address] 11/02/2024 1:00 PM EDT [place] [address] Magdalena Peralta MD [facility] [place] [address] 03/01/2025 4:15 PM EDT Office Visit Dermatology at [address] [place] [address] Marek Bonilla MD [address], QU[address] A DERMATOLOGY [place], [place] [address] documented as of this encounter Visit Diagnoses Not on filedocumented in this encounter Care Teams Heating Engineer Relationship Specialty Start Date End Date Magdalena Acosta MD [address] [place] [address] PCP - General Family Medicine 02/05/23 documented as of this encounter
--- OUTSIDE RECORDS SUMMARY | 2024-07-13 14:08 | XMS_ITS | Encounter Summary ---
Author Organization [facility] [place] [address] Care Team Providers Care Crm Coordinator Name Role Phone Magdalena Acosta MD Primary Care Provider [phone] Encounter Details Date Type Department Care Team [...] 11/02/2024 12:00 PM EDT Appointment [place] [address] 11/02/2024 1:00 PM EDT Office [place] [address] Magdalena Peralta MD [facility] [place] [address] 03/01/2025 4:15 PM EDT Office Visit Dermatology at [place] [address] [place] [address] Marek Bonilla MD [address], [place] [address] documented as of this encounter Visit Diagnoses Not on filedocumented in this encounter Care Teams Crm Coordinator Relationship Specialty Start Date End Date Magdalena Acosta MD [address] [place] [address] PCP - General Family Medicine 02/05/23 documented as of this encounter
--- OUTSIDE RECORDS SUMMARY | 2024-07-13 14:08 | XMS_ITS | Encounter Summary ---
Author Organization [facility] Address [facility] [place] [address] Care Team Providers Care Mesh Worker Name Role Phone Magdalena Acosta MD Primary Care Provider [phone] Encounter Details Date Type Department Care Team (Late st Contact Info) Description 07/29/2023 11:00 AM EST Office [place] [address] Magdalena Peralta MD [facility] [place] [address] Mixed connective tissue disease Social History Tobacco [...] 1:5120 speckled; VIC negative; Myositis panel with WEATHER TEACHER ab 149.1 (positive); Anti U1RNP IgG [...] up for mixed connective tissue disease. Overall, hCeryl's autoimmune symptom profile seems relatively stable/quiescent. She [...] Viramontes. Magdalena Peralta MD Rheumatology Fellow Pager: [phone] * Kia Viramontes DO - 07/29/2023 11:00 AM EST ATTENDING ADDENDUM The patient's history was reviewed, and I interviewed and examined the patient with Dr. Peralta I agree with her summary, findings, and plan. documented in this encounter Plan of Treatment Upcoming Encounters Date Type Department Care Team (Late st Contact Info) Description 11/02/2024 12:00 PM EDT Appointment [place] [address] 11/02/2024 1:00 PM EDT Office [place] [address] Magdalena Peralta MD [facility] [place] [address] 03/01/2025 4:15 PM EDT Office Visit Dermatology at [place] [address] [place] [address] Marek Bonilla MD [address], [place] DERMATOLOGY [place], [place] [address] documented as of this encounter Results * [...] PFT FEV1/FVC Pre-BD Z-Score 0 COMPAS PFT ZGX50-98 Actual Pre-BD 2.41 % COMPAS PFT HUP84-98 Predicted 1.8 % COMPAS PFT SHA74-77 Pre-BD % of Predicted 134 % COMPAS PFT UDD17-94 Pre-BD Z-Score 0.81 COMPAS PFT DLCO Hb [...] tissue documented in this encounter Care Teams Mesh Worker Relationship Specialty Start Date End Date Magdalena Acosta MD [address] [place] [address] PCP - General Family Medicine 02/05/23 documented as of this encounter
--- OUTSIDE RECORDS SUMMARY | 2024-07-13 14:08 | XMS_ITS | Encounter Summary ---
[place] [address] Care Team Providers Care Glass Lined Tank Repairer Name Role Phone Magdalena Acosta MD Primary Care Provider [phone] Reason for Visit * Reason Comments Annual Exam Encounter Details Date Type Department Care Team (Late st Contact Info) Description 02/22/2024 4:15 PM EDT Office Visit Dermatology at [address] [address] Marek Bonilla MD [address] [facility] A DERMATOLOGY [place], [place] [address] Seborrheic keratosis; Rosacea; Nevus Social History Tobacco [...] cutaneous and ocular 3. Previously told by managing jeweler that she had corneal tears from her [...] 11/02/2024 12:00 PM EDT Appointment [place] [address] 11/02/2024 1:00 PM EDT Office [place] [address] Magdalena Peralta MD [facility] [place] [address] 03/01/2025 4:15 PM EDT Office Visit Dermatology at [place] [address] [place] [address] Marek Bonilla MD [address] [facility] [place] [address] documented as of this encounter Visit Diagnoses Diagnosis Seborrheic keratosis Other seborrheic keratosis Rosacea Nevus Benign neoplasm of skin, site unspecified documented in this encounter Care Teams Glass Lined Tank Repairer Relationship Specialty Start Date End Date Magdalena Acosta MD [address] [place] [address] PCP - General Family Medicine 02/05/23 documented as of this encounter
--- OUTSIDE RECORDS SUMMARY | 2024-07-13 14:08 | XMS_ITS | Encounter Summary ---
Author Organization [facility] [place] [address] Care Team Providers Care Energy Analyst Name Role Phone Magdalena Acosta MD Primary Care Provider [phone] Reason for Referral * Diagnostic Test (Routine) - New Request Specialty Diagnoses / Procedures Referred By Contac t Referred To Contact Cardiology Diagnoses S/P TAVR (transcatheter aortic valve replacement) Procedures Echocardiogram Transthoracic Antelmo Sharma MD [facility] [place] [address] [facility] [place] [address] Referral ID Status Reason Start Date Expiration Date Visits Requested Visits Authorized [id number] New Request Specialty Service Requested 12/16/2023 12/15/2024 1 1 Encounter Details Date Type Department Care Team (Late st Contact Info) Description 12/16/2023 Orders Only Cardiology at [address] [address] Antelmo Sharma MD [facility] [place] [address] S/P TAVR (transcatheter aortic valve [...] 11/02/2024 12:00 PM EDT Appointment [place] [address] 11/02/2024 1:00 PM EDT Office Visit [place] [address] Magdalena Peralta MD [facility] [place] [address] 03/01/2025 4:15 PM EDT Office Visit Dermatology at [place] [address] [place] [address] Marek Bonilla MD [address] [facility] [address] Scheduled Orders Name Type Priority Associated Diagnoses Order Schedule Echocardiogram Transthoracic Echocardiography Routine S/P TAVR (transcatheter aortic valve replacement) Expected: 12/16/2023 (Approximate), Expires: 06/17/2024 EKG 12 Lead ECG Routine S/P TAVR (transcatheter aortic valve replacement) Expected: 12/16/2023 (Approximate), Expires: 06/17/2024 documented as of this encounter Visit Diagnoses Diagnosis S/P TAVR (transcatheter aortic valve replacement) documented in this encounter Care Teams Energy Analyst Relationship Specialty Start Date End Date Magdalena Acosta MD [address] [place] [address] PCP - General Family Medicine 02/05/23 documented as of this encounter
--- OUTSIDE RECORDS SUMMARY | 2024-07-13 14:08 | XMS_ITS | Encounter Summary ---
Author Organization [facility] [place] [address] Care Team Providers Care Sales Systems Engineer Name Role Phone Magdalena Acosta [...] 11/02/2024 12:00 PM EDT Appointment [place] [address] 11/02/2024 1:00 PM EDT Office [place] [address] Magdalena Peralta MD [facility] [place] [address] 03/01/2025 4:15 PM EDT Office Visit Dermatology at [place] [address] [place] [address] Marek Bonilla MD [address], [place] [address] documented as of this encounter Visit Diagnoses Not on filedocumented in this encounter Care Teams Sales Systems Engineer Relationship Specialty Start Date End Date Magdalena Acosta MD [address] [place] [address] PCP - General Family Medicine 02/05/23 documented as of this encounter
--- OUTSIDE RECORDS SUMMARY | 2024-07-13 14:08 | XMS_ITS | Encounter Summary ---
Author Organization [facility] Address [facility] [place] [address] Care Team Providers Care Thread Trimmer Name Role Phone Magdalena Acosta MD Primary Care Provider [phone] Reason for Visit * Reason Comments Follow-up Encounter Details Date Type Department Care Team (Late st Contact Info) Description 06/23/2024 2:00 PM EST Office Visit Hematology [place] [address] Markel Borjas MD [facility] [address] HEMATOLOGY [place] [address] Chronic idiopathic neutropenia; Anemia, unspecified type Social [...] 06/23/2024 2:00 PM EST Hematology Outpatient Clinic [facility] [...] TOUCH PREP, CLOT SECTION, CORE BIOPSY); [OSR# [id number], COLLECTED 06/23/2016, 19 SLIDES]: 1. 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 hydrOXYchloroQUINE (Plaquenil) 200 mg [...] 11/02/2024 12:00 PM EDT Appointment [place] [address] 11/02/2024 1:00 PM EDT Office [place] [address] Magdalena Peralta MD [facility] [place] [address] 03/01/2025 4:15 PM EDT Office Visit Dermatology at [place] [address] [facility] [place] [address] Marek Bonilla MD [address], [place] [address] documented as of this encounter Visit Diagnoses Diagnosis Chronic idiopathic neutropenia Other neutropenia Anemia, unspecified type documented in this encounter Care Teams Thread Trimmer Relationship Specialty Start Date End Date Magdalena Acosta MD [address] [place] [address] PCP - General Family Medicine 02/05/23 documented as of this encounter
--- OUTSIDE RECORDS SUMMARY | 2024-07-13 14:08 | XMS_ITS | Encounter Summary ---
[place] [address] Care Team Providers Care Cupola Melting Supervisor Name Role Phone Magdalena Acosta MD Primary Care Provider Reason for Referral * Consultation (Routine) - Closed Specialty Diagnoses / Procedures Referred By Contac t Referred To Contact Hematology and Oncology Diagnoses Anemia, unspecified type Consuelo Guerrero DO [address] [place] [address] [address] [place] [address] [facility] Hem Onc [address] [place] [address] Referral ID Status Reason Start Date Expiration Date V isits Requested Visits Authorized [id number] Closed Consult, Test & Treat 04/11/2024 04/11/2025 1 1 Encounter Details Date Type Department Care Team (Late st Contact Info) Description 04/11/2024 Transcribe Orders eDH Incoming Referrals [phone] Consuelo Guerrero DO [address] [place] [address] [address] [place] [address] Anemia, unspecified type Social History [...] 11/02/2024 12:00 PM EDT Appointment [place] [address] 11/02/2024 1:00 PM EDT Office [place] [address] Magdalena Peralta MD [facility] [address] [place] [address] 03/01/2025 4:15 PM EDT Office Visit Dermatology at [place] [address] [facility] [address] Marek Bonilla MD [address] [facility] [place] [address] Scheduled Referrals Name Type Priority Associated Diagnoses Orde r Schedule Referral to Hematology and Oncology Outpatient Referral Routine Anemia, unspecified type Ordered: 04/11/2024 documented as of this encounter Visit Diagnoses Diagnosis Anemia, unspecified type documented in this encounter Care Teams Cupola Melting Supervisor Relationship Specialty Start Date End Date Magdalena Acosta MD [address] [place] [address] PCP - General Family Medicine 02/05/23 documented as of this encounter
--- OUTSIDE RECORDS SUMMARY | 2024-07-13 14:08 | XMS_ITS | Encounter Summary ---
Author Organization [facility] [place] [address] Care Team Providers Care Educational Paraprofessional Name Role Phone Magdalena Acosta MD Primary Care Provider [phone] Encounter Details Date Type Department Care Team [...] 11/02/2024 12:00 PM EDT Appointment [place] [address] 11/02/2024 1:00 PM EDT Office [place] [address] Magdalena Peralta MD [facility] [place] [address] 03/01/2025 4:15 PM EDT Office Visit Dermatology at [place] [address] [place] [address] Marek Bonilla MD [address], [place] [address] documented as of this encounter Visit Diagnoses Not on filedocumented in this encounter Care Teams Educational Paraprofessional Relationship Specialty Start Date End Date Magdalena Acosta MD [address] [place] [address] PCP - General Family Medicine 02/05/23 documented as of this encounter
--- OUTSIDE RECORDS SUMMARY | 2024-07-13 14:08 | XMS_ITS | Encounter Summary ---
Author Organization [facility] [place] [address] Care Team Providers Care Armorer Technician Name Role Phone Magdalena Acosta MD Primary Care Provider [phone] Encounter Details Date Type Department Care Team [...] 11/02/2024 12:00 PM EDT Appointment [place] [address] 11/02/2024 1:00 PM EDT Office [place] [address] Magdalena Peralta MD [facility] [address] 03/01/2025 4:15 PM EDT Office Visit Dermatology at [place] [address] [place] [address] Marek Bonilla MD [address], [place] [address] documented as of this encounter Visit Diagnoses Not on filedocumented in this encounter Care Teams Armorer Technician Relationship Specialty Start Date End Date Magdalena Acosta MD [address] [place] [address] PCP - General Family Medicine 02/05/23 documented as of this encounter
--- OUTSIDE RECORDS SUMMARY | 2024-07-13 14:08 | XMS_ITS | Encounter Summary ---
Author Organization [facility] [place] [address] Care Team Providers Care Personal Lines Sales Rep Name Role Phone Magdalena Acosta MD Primary Care Provider [phone] Encounter Details Date Type Department Care Team [...] 11/02/2024 12:00 PM EDT [place] [phone] 11/02/2024 1:00 PM EDT Office [place] [phone] Magdalena Peralta MD [facility] [place] [address] 03/01/2025 4:15 PM EDT Office Visit Dermatology at [place] [address] [place] [address] Marek Bonilla MD [address], [place] [address] documented as of this encounter Visit Diagnoses Not on filedocumented in this encounter Care Teams Personal Lines Sales Rep Relationship Specialty Start Date End Date Magdalena Acosta MD [address] [place] [address] PCP - General Family Medicine 02/05/23 documented as of this encounter
--- OUTSIDE RECORDS SUMMARY | 2024-07-13 14:08 | XMS_ITS | Encounter Summary ---
Author Organization Formerly [facility] Address [facility] [place] [address] Care Team Providers Care Derrick Car Operator Name Role Phone Magdalena Acosta MD Primary Care Provider [phone] Reason for Visit * Reason Onset Date Comments Medication Refill 05/24/2024 Encounter Details Date Type Department Care Team (Late st Contact Info) Description 05/24/2024 Refill [place] [address] Magdalena Peralta MD [facility] [place] [address] Social History Tobacco Use Types Packs/Day Years Used Date Smoking Tobacco: Never Smokeless Tobacco: Never Alcohol Use Standard Drinks/Week Comments No 0 (1 standard drink = 0.6 oz pur e alcohol) none [facility] Inpatient Questions Answer Date [...] 200 mg tablet [facility] - [place], [place] - [address] [facility] [address] [facility] [address] documented in this encounter Plan of Treatment Upcoming Encounters Date Type Department Care Team (Late st Contact Info) Description 11/02/2024 12:00 PM EDT Appointment [place] [address] 11/02/2024 1:00 PM EDT Office [place] [phone] Magdalena Peralta MD [facility] [place] [address] 03/01/2025 4:15 PM EDT Office Visit Dermatology at [address] [place] [address] Marek Bonilla MD [address] [facility] [place] [address] documented as of this encounter Visit Diagnoses Not on filedocumented in this encounter Care Teams Derrick Car Operator Relationship Specialty Start Date End Date Magdalena Acosta MD [address] [place] [address] PCP - General Family Medicine 02/05/23 documented as of this encounter
--- OUTSIDE RECORDS SUMMARY | 2024-07-13 14:08 | XMS_ITS | Encounter Summary ---
Author Organization Formerly [facility] [place] [address] Care Team Providers Care Aquatic Centre Manager Name Role Phone Magdalena Acosta MD Primary Care Provider [phone] Encounter Details Date Type Department Care Team (Late st Contact Info) Description 07/08/2023 10:15 AM EST Office Visit Cardiology at [address] [phone] Severe aortic stenosis Social History Tobacco Use Types Packs/Day Years Used Date Smoking Tobacco: Never Smokeless Tobacco: Never Alcohol Use Standard Drinks/Week Comments No 0 (1 standard drink = 0.6 oz pur e alcohol) none [facility] Inpatient Questions Answer Date Recorded Does [...] 12:00 PM EDT Appointment [place] [address] 11/02/2024 1:00 PM EDT Office [place] [phone] Magdalena Peralta MD [facility] [place] [address] 03/01/2025 4:15 PM EDT Office Visit Dermatology at [place] [address] [place] [phone] Marek Bonilla MD [address], [address] [address] documented as of this encounter Procedures Procedure [...] (Bezet) 449 ms MUSE SYSTEM Calculated P [place] 66 degrees MUSE SYSTEM Calculated R [place] 60 degrees MUSE SYSTEM Calculated T [place] 53 degrees MUSE SYSTEM INTERPRETATION Normal sinus rhythm Minimal voltage criteria for LVH, may be normal variant ( Sokolow-Orozco ) ST & T wave abnormality, consider lateral ischemia ??vs. repolarization abnormality from LVH Abnormal ECG When compared with ECG of 13-MAY-2023 09:22, Premature ventricular complexes are no longer Present Minimal criteria for Septal infarct are no longer Present Confirmed by Maxx Best ([id number]) on 07/09/2023 10:07:22 AM MUSE SYSTEM 07/08/2023 10:2 7 AM EST 07/09/2023 10:07 AM EST Brody Kaplan APRN ECG ORDERABLES [employer] documented in this encounter Visit Diagnoses Diagnosis Severe aortic stenosis Aortic valve disorders documented in this encounter Care Teams Aquatic Centre Manager Relationship Specialty Start Date End Date Magdalena Acosta MD [address] [place] [address] PCP - General Family Medicine 02/05/23 documented as of this encounter
--- OUTSIDE RECORDS SUMMARY | 2024-07-13 14:08 | XMS_ITS | Encounter Summary ---
Author Organization [facility] [place] [address] Care Team Providers Care Surgical Oncologist Name Role Phone Magdalena Acosta MD Primary Care Provider [phone] Encounter Details Date Type Department Care Team [...] 11/02/2024 12:00 PM EDT Appointment [place] [phone] 11/02/2024 1:00 PM EDT Office [place] [phone] Magdalena Peralta MD [facility] [place] [address] 03/01/2025 4:15 PM EDT Office Visit Dermatology at [place] [address] [place] [address] Marek Bonilla MD [address], [place] [address] documented as of this encounter Visit Diagnoses Not on filedocumented in this encounter Care Teams Surgical Oncologist Relationship Specialty Start Date End Date Magdalena Acosta MD [address] [place] [address] PCP - General Family Medicine 02/05/23 documented as of this encounter
--- OUTSIDE RECORDS SUMMARY | 2024-07-13 14:08 | XMS_ITS | Clinical Summary ---
Author Organization [facility] Address [facility] [place] [address] Care Team Providers Care Yarn Dyer Name Role Phone Magdalena Acosta MD [...] fraction 05/08/2023 Mild coronary artery disease by [facility] 11/09/2022 Heart failure with reduced e [...] EST Office Visit [place] [phone] Markel Borjas MD Chronic idiopathic neutropenia; Anemia, unspecified type 06/23/2024 Travel 06/16/2024 Travel 06/05/2024 2:00 PM EST - 06/05/2024 3:00 PM EST Surgery [facility] [place] [phone] Markel Borjas MD (OSC MSURG) BONE MARROW BIOPSY AND ASPIRATION; DIAGNOSTIC (WRVU 1.44) 06/05/2024 1:04 PM EST - 06/05/2024 3:08 PM EST Hospital Encounter [place]patient [place] [address] Markel Borjas MD Discharge Disposition: Home 06/01/2024 10:00 AM EDT Office [place] [phone] Magdalena Peralta MD Mixed connective tissue disease 05/31/2024 Travel 05/24/2024 Refill Internal Medicine at [place] [phone] Magdalena Peralta MD 05/18/2024 Interpretation Only [address] [phone] Magdalena Acosta MD 05/18/2024 Interpretation Only [address] [phone] Magdalena Acosta MD 05/12/2024 10:00 AM EDT Office Visit [place] [phone] Markel Borjas MD Chronic idiopathic neutropenia 05/12/2024 9:00 AM EDT Laboratory Appointment Lab at [facility] Hematology Oncology [address] [place] [phone] S/P TAVR (transcatheter aortic valve replacement); Chronic idiopathic neutropenia 05/12/2024 Travel 05/10/2024 Travel from Last 3 Months Immunizations Name [...] 11/02/2024 12:00 PM EDT [place] [address] 11/02/2024 1:00 PM EDT [place] [address] Magdalena Peralta MD [facility] [place] [address] 03/01/2025 4:15 PM EDT Office Visit Dermatology at [place] [address] [place] [phone] Marek Bonilla MD [address] [place] [address] Health Maintenance Due Date Last Done Comments [...] 05/18/2024, 06/05/2021 Medical Devices Implanted Type Area Barrel Rifler Hook Device Identifier Shelf Expiration Date Model / Serial / Lot Valve,Aor,Pericar d,Magna,25mm ([id number]) - [id number] Implanted:Qty: 1 on 09/21/2016 by Alirio Esparza MD at [facility] IMPLANTS N/A: Heart DO NOT USE [employer] - [id number] 06/02/2020 [id number] / / [id number] Cable,Blnt,Ss,38i n ([id number]) - [id number] Implanted:Qty: 4 on 09/21/2016 by Alirio Esparza MD at [facility] IMPLANTS N/A: Chest [employer] - [id number] 04/29/2021 [id number] / / [id number] Patch,Cav,Pericar d,2x5cm ([id number]) (Autoreq) - [id number] Implanted:Qty: 1 on 09/21/2016 by Alirio Esparza MD at [facility] IMPLANTS N/A: Heart DO NOT USE [employer] - [id number] 04/21/2018 [id number] / / [id number] Tavr-05/12/2023 Implanted:Qty: 1 on 05/12/2023 by Antelmo Sharma MD Other Heart [employer] - [place] [id number] / [id number] / Description:[employer] NCES ABBY 3 ULTRA [...] EST Diagnostic Bone Marrow Biopsies & Aspirations (56047) 06/05/2024 2:03 PM EST Anemia, in pt [...] PM EST 06/05/2024 3:07 PM EST Narrative [facility] - 06/06/2024 10:47 AM EST ~3ml Markel Borjas MD PATHOLOGY/CYTOLOGY ORDERABLES Performing Organization Address [facility] Co de Phone Number [facility] [place] [address] * BM HOLD FLOW/MOLECULAR (06/05/2024 2:22 PM EST) Bone Marrow Non Blood Collection / Unknown 06/05/2024 2:22 PM EST 06/05/2024 3:07 PM EST Markel Borjas MD PATHOLOGY/CYTOLOGY ORDERABLES Performing Organization Address [facility] [place] [place] [address] * Bone Marrow (06/05/2024 2:22 PM EST) Case Report Bone Marrow Patholog y Report ?Case: [id number] ? Authorizing Provider: ??Markel Borjas MD ?Collected: ? 06/05/2024 1422 ? Ordering Location: ? [facility] ??Received: ?06/05/2024 1508 ? Amria Luz [facility] ? Hospital ? Pathologist: ? Boucher, Georges L, MD ? Specimens: ?? A) - Iliac Crest, Left ? B) - Iliac Crest, Left ? C) - Iliac Crest, Left ? 1:31 PM [facility] Integrated Results Bone marrow [...] likely. Clinical correlation is recommended. 1:31 PM [facility] Addendum electronically signed by Georges Boucher MD on 06/22/2024 at 1:31 PM Final Diagnosis BONE MARROW (BLOOD FILM, ASPIRATE, TOUCH PREP, CORE & CLOT SECTIONS): 1. Normocellular bone marrow with maturing trilineage hematopoiesis. No overt dysplasia or increased blasts. 2. Ancillary studies pending. 1:31 PM [facility] Discussion The patient's histor y [...] Final integrated report to follow. 1:31 PM [facility] Additional Studies Task ID IHC/Special Stains Result B1-3 Myeloperoxidase Highlights granulocytic precursors. B1-4 CD34 Highlights rare blasts (<5% of cells) B1-5 CD117 Highlights rare mast cells. B1-6 E-Cadherin Highlights normal erythroid precursors. B1-7 CD61 Highlights normal megakaryocytes. 4 1:31 PM [facility] Clinical Information Anemia, in patient with presumed hx of benign neutropenia 4 1:31 PM [facility] Gross Description A. Iliac Crest, [...] cassette labeled C1. CCP 4 1:31 PM [facility] Disclaimer(s) Formalin-fixed, paraffin-embedded tissue sections [...] and other diagnostic tests. 4 1:31 PM [facility] Bone Marrow Aspirate Adequacy: Smear/touch [...] present, no ring sideroblasts. 4 1:31 PM [facility] Bone Marrow Biopsy and/or Clot [...] Trabecular bone normal for age. 1:31 PM [facility] Bone Marrow Differential Band/Seg 34%; Lymph 8%; [place] 0%; Eos 2%; Baso 1%; Metamyelocyte 13%; Myelocyte 9%; Promyelocyte 2%; Blast 1%; nRBC's 27%; Plasma cell 3% 4 1:31 PM [facility] Result Note Routine 1:31 PM [facility] Peripheral Blood Morphology RBCs: Mildly macrocytic anemia with rare target cells, ovalocytes. WBCs: Unremarkable. Platelets: Rare large platelet form present. 1:31 PM [facility] STRUCTURE OF LEFT ILIAC CREST / Unknown 06/05/2024 2:22 PM EST 06/05/2024 3:08 PM EST STRUCTURE OF LEFT ILIAC CREST / Unknown 06/05/2024 2:22 PM EST 06/05/2024 3:08 PM EST STRUCTURE OF LEFT ILIAC CREST / Unknown 06/05/2024 2:22 PM EST 06/05/2024 3:08 PM EST Markel Borjas MD PATHOLOGY/CYTOLOGY ORDERABLES [facility] [place] [address] * Chromosome Analysis, Acquired ([facility]) (06/05/2024 2:22 PM EST) Chromosome, Leukemia/Lymph ananya ([facility]) See Scanned Result 06/14/2024 6:28 PM EST REF [facility] Specimen Condition ([facility]) 06/14/2024 6:28 PM EST REF [facility] Bone Marrow Non Blood Collection / Unknown 06/05/2024 2:22 PM EST 06/05/2024 3:07 PM EST Georges Boucher MD LAB SEND OUT ORDERAB LES REF [facility] [address] [place] [address] * DH HemeSeq (Bone Marrow) (06/05/2024 2:22 PM EST) Pathologist [facility] NGS Report Status Normal 06/13/2024 10:21 AM EST [facility] Bone Marrow Non Blood Collection / Unknown 06/05/2024 2:22 PM EST 06/05/2024 3:07 PM EST Georges Boucher MD MOLECULAR ORDERABLES Performing Organization Address City/[facility]/ZIP Co de Phone Number [facility] [place] [address] * Immunophenotyping Flow Cytometry (06/05/2024 2:22 PM EST) Pathologist [facility] Final Diagnosis - No monotypic B-cell population, no monotypic plasma cell population, no phenotypically abnormal T-cell population or increase in blasts is detected. 06/06/2024 2:08 PM EST [facility] Signing Pathologist This result has been reviewed by Georges Boucher MD on 06/06/24 at 2:08 PM. 06/06/2024 2:08 PM EST [facility] Interpretation CD19+ B-cells show a [...] significant blast populations identified. 06/06/2024 2:08 PM [facility] Lymphocyte % 4.7 % 06/06/2024 2:08 PM [facility] Monocyte % 3.0 % 06/06/2024 2:08 PM [facility] Granulocyte % 76.0 % 06/06/2024 2:08 PM [facility] CD45 DIM % 0.9 % 06/06/2024 2:08 PM [facility] CD38 Bright/CD138+ 0.2 % 06/06/2024 2:08 PM [facility] CD3+ % 70.0 % 06/06/2024 2:08 PM [facility] CD19+ % 17.0 % 06/06/2024 2:08 PM [facility] CD56+ % 12.0 % 06/06/2024 2:08 PM [facility] B-Cell:T-Cell Ratio 0.2 06/06/2024 2:08 PM [facility] [place]:Lambda Ratio 1.8 06/06/2024 2:08 PM [facility] CD4:CD8 Ratio 1.6 06/06/2024 2:08 PM [facility] Specimen Processing Cells for immunophenotypic analysis were derived from bone marrow. The following markers were assessed: CD2, CD3, CD4, CD5, CD7, CD8, CD10, CD19, CD20, CD38, CD45, CD56, CD138, kappa light chain, (c)kappa light chain, lambda light chain, (c)lambda light chain,CD13, CD14, CD34, CD45, CD117, and HLA-DR. 06/06/2024 2:08 PM [facility] Disclaimer Flow analysis is an [...] clinical laboratory testing. 06/06/2024 2:08 PM [facility] Bone Marrow Non Blood Collection / Unknown 06/05/2024 2:22 PM EST 06/05/2024 3:07 PM EST Georges Boucher MD HEMATOLOGY ORDERABLE S Performing Organization Address City/State/[facility] Co de Phone Number [facility] [place] [address] * Myelodysplastic Syndrome (MDS) FISH Panel (06/05/2024 2:22 PM EST) Specimen Condition adequate 06/08/2024 11:23 PM [facility] Indication for Study Anemia, in patient with presumed hx of benign neutropenia 06/08/2024 11:23 PM [facility] FISH Panel Summary NEGATIVE for all FISH Panel markers 06/08/2024 11:23 PM [facility] FISH Results 5q deletion, monosomy 5, 7q deletion, monosomy 7, trisomy 8, and 20q deletion NOT DETECTED. 06/08/2024 11:23 PM [facility] ISCN Nomenclature nuc josselin(D5S23,EGR1)x2[ 200],(D7Z1,L0Z971) x2[200],(D8Z2,D20S 108)x2[200] 06/08/2024 11:23 PM [facility] Culture Type Direct [place] 06/08/20 11:23 PM [facility] FISH Method Interphase 06/08/2024 11:23 PM [facility] Interpretation Interphase FISH analysis using [...] analysis using probes for CEP7/D7Z1/7p11.1q1 1.1 and U2K455/7q31 loci ([employer] shows 1.5% and 0% of 200 cells with 7q signal deletion (7q-) and chromosome 7 signal loss (monosomy 7) patterns, respectively. These are within acceptable reference limits (7q deletion: 0-6.3%; monosomy 7: 0-4.4%). Thus, there is no evidence for 7q deletion and monosomy 7. Interphase FISH analysis using probes for CEP8/D8Z2/8p11.1q1 1.1 and G40W155/20q12 loci ([employer] shows 0% and 2.5% of 200 cells with a chromosome 8 signal gain and 20q signal deletion patterns, respectively. These are within acceptable reference limits (trisomy 8: 0-5.1%; 20q deletion: 0-6.3%). Thus, there is no evidence for trisomy 8 and 20q deletion. Correlation with clinical and pathological studies is suggested. 06/08/2024 11:23 PM [facility] Technical Methods FISH is performed [...] The FISH probes are directly-labeled by the 5th grade teacher (HereOrThere or lark) with either a spectrum orange, green, or aqua fluorochrome. Cells are stained with DAPI ([employer]), visualized through fluorescence microscopy, and images captured on the CytoVision software ([employer]). Results are reported based on an International System for Human Cytogenomic Nomenclature. 06/08/2024 11:23 PM EST [facility] Limitations & Disclaimers The FISH test was developed and its performance characteristics were determined by the [facility] ([facility]) Cytogenetics Laboratory as required by The Clinical [...] verified the test's accuracy and precision. The [facility] Cytogenetics Laboratory is certified under the CLIA'88 as qualified to perform high complexity clinical laboratory testing. Chromosome alterations outside the regions complementary to these DNA FISH probes will not be detected. 06/08/2024 11:23 PM EST [facility] Sign-out by Professional component performed by Lizette Bullock, Ph.D., [facility], [facility] [address], [place], [place] (CLIA #: [id number]). 06/08/2024 11:23 PM EST [facility] Bone Marrow Non Blood Collection / Unknown 06/05/2024 2:22 PM EST 06/05/2024 3:07 PM EST Georges Boucher MD MOLECULAR ORDERABLES [facility] [place] [address] * (ABNORMAL) CBC (with Diff) (06/05/2024 1:45 PM EST) Only the most recent of2 resultswithin the time period is included. White Blood Cell 3.06(L) 4.00 - 9.50 x10(3)/mc L 06/05/2024 2:38 PM [facility] Red Blood Cell 3.35(L) 4.00 - 5.21 x10(6)/mc L 06/05/2024 2:38 PM [facility] Hemoglobin 11.0(L) 11.7 - 15.5 g/dL 06/05/2024 2:38 PM [facility] Hematocrit 33.4(L) 35.7 - 45.8 % 06/05/2024 2:38 PM [facility] Mean Cell Volume 99.7(H) 82.6 - 94.4 fL 06/05/2024 2:38 PM [facility] Mean Cell Hemoglobin 32.8(H) 27.1 - 32.0 pg 06/05/2024 2:38 PM [facility] Mean Cell Hemoglobin Concentration 32.9 31.7 - 35.0 g/dL 06/05/2024 2:38 PM [facility] Platelet 151 145 - 357 x10(3)/mc L 06/05/2024 2:38 PM [facility] Mean Platelet Volume 8.9 7.6 - 12.9 fL 06/05/2024 2:38 PM [facility] RDW Standard Deviation 44.3 37.0 - 46.0 fL 06/05/2024 2:38 PM [facility] RDW coefficient of variation 12.0 11.5 - 14.1 % 06/05/2024 2:38 PM [facility] NRBC% auto 0.0 % 06/05/2024 2:38 PM [facility] NRBC Absolute <0.01 <0.01 x10(3)/mc L 06/05/2024 2:38 PM [facility] Neutrophil % 62.8 % 06/05/2024 2:38 PM [facility] Neutrophil Absolute (ANC) - Automated 1.92 1.70 - 6.10 x10(3)/mc L 06/05/2024 2:38 PM EST [facility] Lymph % 20.9 % 06/05/2024 2:38 PM EST [facility] Lymph Absolute 0.64(L) 0.90 - 3.20 x10(3)/mc L 06/05/2024 2:38 PM EST [facility] Monocyte % 15.0 % 06/05/2024 2:38 PM EST [facility] Monocyte Absolute 0.46 0.30 - 0.90 x10(3)/mc L 06/05/2024 2:38 PM EST [facility] Eos % 0.3 % 06/05/2024 2:38 PM EST [facility] Eos Absolute <0.04 0.00 - 0.40 x10(3)/mc L 06/05/2024 2:38 PM EST [facility] Basophil % 0.7 % 06/05/2024 2:38 PM EST [facility] Baso Absolute <0.04 0.00 - 0.10 x10(3)/mc L 06/05/2024 2:38 PM EST [facility] Immature Gran % 0.3 % 2:38 PM [facility] Immature Gran Absolute <0.04 0.00 - 0.04 x10(3)/mc L 06/05/2024 2:38 PM EST [facility] Blood VENOUS BLOOD SPECIMEN / Unknown Venipuncture / Unknown 06/05/2024 1:45 PM EST 06/05/2024 1:59 PM EST Markel Borjas MD HEMATOLOGY ORDERAB LES [facility] [place] [address] * DXA Central Spine, Hip, and/or Whole Body (Generic) (05/18/2024 11:21 AM EDT) PT CLASS O DH RAD ADMITDTTM [id number] RAD PT [facility] INFO [id number]^Dave ^Magdalena [facility] EXAM DESC XDXAC^BD Bone Density DEXA Axial Skeleton^RIS [facility] WORKSTATION ID RADDRIMAGE [facility] Anatomical Region Laterality Modality C-spine, [...] signed by: Rocael Villatoro MD, [facility] ([phone]), at 05/18/2024 11:25 AM Narrative 05/18/2024 11:25 [...] orientation teacher that requested your imaging first. Magdalena Acosta MD IMG DEXA ORDERABLES * MAMMO SCREENING CAD BILATERAL (CH) (05/18/2024 11:21 AM EDT) PT CLASS O RAD ADMITDTTM [id number] RAD PT RAD INFO [id number]^Dave ^Magdalena RAD EXAM DESC MADDSCCH^MG Mammo Digital [...] signed by: Rocael Villatoro MD, [facility] ([phone]), at 05/18/2024 3:[address] [place], [place] ??[address] Narrative 05/18/2024 3:05 PM EDT EXAMINATION: MG [...] orientation teacher that requested your imaging first. Electronically signed by: Rocael Villatoro MD, [facility]([phone]), at 05/18/2024 3:05 PM [place] [phone] Magdalena Acosta MD PACS IMAGES * Reticulocyte [...] EDT 05/12/2024 8:56 AM EDT Tova Russell WIND TURBINE CONTROLS ENGINEER HEMATOLOGY ORDERABL ES [facility] [place] [address] * (ABNORMAL) Comprehensive metabolic panel Non-fasting (05/12/2024 8:56 AM EDT) Glucose 86 65 - 199 mg/dL 05/12/2024 11:36 AM [facility] Comment:Glucose Concentratio n >=200 mg/dL plus symptoms is consistent with Diabetes Mellitus. Blood Urea Nitrogen 20(H) 8 - 18 mg/dL 05/12/2024 11:36 AM [facility] Creatinine 0.88 0.70 - 1.20 mg/dL 05/12/2024 11:36 AM [facility] Sodium 145 135 - 145 mMol/L 05/12/2024 11:36 AM [facility] Potassium 4.6 3.5 - 5.0 mMol/L 05/12/2024 11:36 AM [facility] Chloride 109(H) 98 - 107 mMol/L 05/12/2024 11:36 AM [facility] Carbon Dioxide 21(L) 22 - 31 mMol/L 05/12/2024 11:36 AM [facility] Anion Gap 15 5 - 15 mMol/L 05/12/2024 11:36 AM [facility] Comment:Not Calculated. Calcium 9.9 8.5 - 10.5 mg/dL 05/12/2024 11:36 AM [facility] Protein, Total 7.3 6.1 - 8.0 g/dL 05/12/2024 11:36 AM [facility] Albumin 4.5 3.2 - 5.2 g/dL 05/12/2024 11:36 AM [facility] Aspartate Aminotransferase 24 <=30 unit/L 05/12/2024 11:36 AM [facility] Alanine Aminotransferase 14 0 - 30 unit/L 05/12/2024 11:36 AM [facility] Alkaline Phosphatase 98 35 - 105 unit/L 05/12/2024 11:36 AM [facility] Bilirubin, Total 0.2 <=1.3 mg/dL 05/12/2024 11:36 AM [facility] Est Glomerular Filtration Rate - [...] EDT 05/12/2024 8:56 AM EDT Tova Russell W[employer]UR[employer]S ENGINEER CHEMISTRY ORDERABLE S [facility] [place] [phone] from Last 3 Months Advance Directives * [...] capacity to make decision: Yes Care Teams Yarn Dyer Relationship Specialty Start Date End Date Magdalena Acosta MD [address] [place] [address] PCP - General Family Medicine 02/05/23
--- OUTSIDE RECORDS SUMMARY | 2024-07-13 14:08 | XMS_ITS | Encounter Summary ---
Author Organization [facility] [address] Care Team Providers Care Cooker Sulfite Name Role Phone Magdalena Acosta MD Primary Care Provider [phone] Encounter Details Date Type Department Care Team [...] 11/02/2024 12:00 PM EDT Appointment [place] [phone] 11/02/2024 1:00 PM EDT Office [place] [phone] Magdlaena Peralta MD [facility] [place] [address] 03/01/2025 4:15 PM EDT Office Visit Dermatology at [place] [address] [place] [address] Marek Bonilla MD [address] [place] [address] documented as of this encounter Visit Diagnoses Not on filedocumented in this encounter Care Teams Cooker Sulfite Relationship Specialty Start Date End Date Magdalena Acosta MD [address] [place] [address] PCP - General Family Medicine 02/05/23 documented as of this encounter
--- OUTSIDE RECORDS SUMMARY | 2024-07-13 14:08 | XMS_ITS | Encounter Summary ---
Author Organization Replaced By [facility] [place] [address] Care Team Providers Care Rural Mail Carrier Name Role Phone Magdalena Acosta MD Primary Care Provider [phone] Encounter Details Date Type Department Care Team (Late st Contact Info) Description 12/02/2023 11:15 AM EDT Office Visit [place] [address] Magdalena Peralta MD [facility] [facility] [place] [address] Mixed connective tissue disease Social History Tobacco [...] 1:5120 speckled; VIC negative; Myositis panel with SPLICER OPERATOR ab 149.1 (positive); Anti U1RNP IgG [...] list of questions that she sent via [facility] ahead of her visit, which [...] exposure. She has an appointment with her Biosecurity Officer scheduled in January. (Dr Bonilla in [place]) ROS (positives in bold): Gen: no fevers, [...] but I encouraged her to contact her Biosecurity Officer to see if she could have her [...] Dr. Tanisha Peralta MD Rheumatology Fellow Pager: [phone] * Federico Yee MD - 12/02/2023 11:15 [...] 11/02/2024 12:00 PM EDT Appointment [place] [address] 11/02/2024 1:00 PM EDT Office Visit Rheumatology at [place] [phone] Magdalena Peralta MD [facility] [facility] [place] [address] 03/01/2025 4:15 PM EDT Office Visit Dermatology at [address] [address] Marek Bonilla MD [address] [place] [address], [facility] [place] [address] Scheduled Orders Name Type Priority Associated Diagnoses Orde r Schedule EKG 12 Lead ECG Routine Mixed connective tissue disease Expected: 12/02/2023, Expires: 06/03/2024 documented as of this encounter Visit Diagnoses Diagnosis Mixed connective tissue disease Other specified diffuse disease of connective tissue documented in this encounter Care Teams Rural Mail Carrier Relationship Specialty Start Date End Date Magdalena Acosta MD [address] [place] [address] PCP - General Family Medicine 02/05/23 documented as of this encounter
--- OUTSIDE RECORDS SUMMARY | 2024-07-13 14:08 | XMS_ITS | Encounter Summary ---
Author Organization Formerly [facility], [facility] Address [facility] [place] [address] Care Team Providers Care Cosmetic Surgeon Name Role Phone Magdalena Acosta MD Primary Care Provider [phone] Encounter Details Date Type Department Care Team (Late st Contact Info) Description 06/01/2024 10:00 AM EDT Office [place] [address] Magdalena Peralta MD [facility] [place] [address] Mixed connective tissue disease Social History Tobacco [...] through Care Everywhere. * Knee Arthritis: Exercises (Macedonian) documented in this encounter Progress Notes * [...] 1:5120 speckled; VIC negative; Myositis panel with SECURITY ORDERLY ab 149.1 (positive); Anti U1RNP IgG 119; [...] that osteoporosis is not an indication for terminal system operator systemic steroid therapy as it is [...] Dr. Roma Peralta MD Rheumatology Fellow Pager: [phone] * Kuldeep Brandon MD - 06/01/2024 10:00 [...] and therapeutic plans. Kuldeep Brandon MD Staff Printing Roller Polisher documented in this encounter Plan of Treatment Upcoming Encounters Date Type Department Care Team (Late st Contact Info) Description 11/02/2024 12:00 PM EDT Appointment [place] [address] 11/02/2024 1:00 PM EDT Office [place] [address] Magdalena Peralta MD [facility] [place] [address] 03/01/2025 4:15 PM EDT Office Visit Dermatology at [address] [address] Marek Bonilla MD [address], [place] [address] Scheduled Orders Name Type Priority Associated Diagnoses Orde r Schedule Common Pulmonary Function Test PFT Routine Mixed connective tissue disease Expected: 10/31/2024, Expires: 06/01/2025 documented as of this encounter Visit Diagnoses Diagnosis Mixed connective tissue disease Other specified diffuse disease of connective tissue documented in this encounter Care Teams Cosmetic Surgeon Relationship Specialty Start Date End Date Magdalena Acosta MD [address] [place] [address] PCP - General Family Medicine 02/05/23 documented as of this encounter
--- OUTSIDE RECORDS SUMMARY | 2024-07-13 14:08 | XMS_ITS | Encounter Summary ---
Author Organization [facility] [place] [address] Care Team Providers Care Lithograph Printer Name Role Phone Magdalena Acosta MD Primary Care Provider [phone] Encounter Details Date Type Department Care Team [...] EDT Appointment [place] [address] 11/02/2024 1:00 PM EDT Office [place] [address] Magdalena Peralta MD [facility] [place] [address] 03/01/2025 4:15 PM EDT Office Visit Dermatology at [place] [address] [place] [address] Marek Bonilla MD [address], [place] [address] documented as of this encounter Visit Diagnoses Not on filedocumented in this encounter Care Teams Lithograph Printer Relationship Specialty Start Date End Date Magdalena Acosta MD [address] [place] [address] PCP - General Family Medicine 02/05/23 documented as of this encounter
--- OUTSIDE RECORDS SUMMARY | 2024-07-13 14:08 | XMS_ITS | Encounter Summary ---
[place] [address] Care Team Providers Care Lard Refiner Name Role Phone Magdalena Acosta MD Primary Care Provider [phone] Encounter Details Date Type Department Care Team (Latest Contact Info) Description 07/08/2023 12:35 PM EST Laboratory Appointment Lab [address] [place] [address] S/P TAVR (transcatheter aortic valve [...] PM EDT Appointment [place] [address] 11/02/2024 1:00 PM EDT Office [place] [address] Magdalena Peralta MD [facility] [place] [address] 03/01/2025 4:15 PM EDT Office Visit Dermatology at [place] [address] [place] [address] Marek Bonilla MD [address], [place] [address] documented as of this encounter [...] 11:56 AM EST) Neutrophil % 73.2 % [facility] Neutrophil Absolute 3.40 1.70 - 6.10 x10(3)/mc L [facility] Lymph % 16.1 % [facility] Lymphocytes Abs 0.8(L) 0.9 - 3.2 x10(3)/mc L [facility] Monocyte % 9.7 % [facility] Monocyte Abs 0.4 0.3 - 0.9 x10(3)/mc L [facility] Eos % 0.4 % [facility] Eosinophils Abs 0.0 0.0 - 0.4 x10(3)/mc L [facility] Basophil % 0.4 % [facility] Baso Absolute 0.0 0.0 [...] x10(3)/mc L [facility] Blood 07/08/2023 11:5 6 AM EST 07/08/2023 12:02 PM EST Narrative Resulting Agency Comment Spec In Lab Minh TOBAR HEMATOLOGY ORDERABLE S [facility] [place] [address] * (ABNORMAL) Hemogram (07/08/2023 11:56 AM EST) White Blood Cell 4.6 4.0 - 9.5 x10(3)/mc L [facility] Red Blood Cell 3.34(L) 4.00 - 5.21 x10(6)/[facility] Hemoglobin 11.0(L) 11.7 - 15.5 g/dL [facility] Hematocrit 33.2(L) 35.7 - 45.8 % [facility] Mean Cell Volume 99.4(H) 82.6 - 94.4 fL [facility] Mean Cell Hemoglobin 32.9(H) 27.1 - 32.0 pg [facility] Mean Cell Hemoglobin Concentration 33.1 31.7 - 35.0 g/dL [facility] Platelet 166 145 - 357 x10(3)/mc L [facility] RDW Standard Deviation 47.1(H) 37.0 - 46.0 fL [facility] RDW coefficient of variation 13.0 11.5 - 14.1 % [facility] Mean Platelet Volume 9.0 7.6 - 12.9 fL [facility] NRBC% auto 0.0 % [facility] NRBC Absolute 0.000 0.000 - 0.000 x10(3)/mc L [facility] Blood 07/08/2023 11:5 6 AM EST 07/08/2023 12:02 PM EST Narrative Resulting Agency Comment Spec In Lab Minh TOBAR HEMATOLOGY ORDERABLE S [facility] [place] [address] * (ABNORMAL) Comprehensive metabolic panel (non-fasting) (07/08/2023 [...] Lab Alirio Esparza MD CHEMISTRY ORDERABLE S [facility] [place] [address] documented in this encounter Visit Diagnoses Diagnosis S/P TAVR (transcatheter aortic valve replacement) Severe aortic stenosis Aortic valve disorders documented in this encounter Care Teams Lard Refiner Relationship Specialty Start Date End Date Magdalena Acosta MD [address] [place] [address] PCP - General Family Medicine 02/05/23 documented as of this encounter
--- OUTSIDE RECORDS SUMMARY | 2024-07-13 14:08 | XMS_ITS | Encounter Summary ---
Author Organization [facility] [place] [address] Care Team Providers Care Compression Molding Machine Setter Name Role Phone Magdalena Acosta MD Primary Care Provider [phone] Encounter Details Date Type Department Care Team (Latest Contact Info) Description 06/05/2024 1:04 PM EST - 06/05/2024 3:08 PM EST Hospital Encounter [facility]patient [place] [address] Markel Borjas MD [facility] [place] [address] Discharge Disposition: Home Social History Tobacco Use [...] 5pm or on a weekend: Call the [facility] sheeter operator at and ask for the physician operations scheduler covering for your doctor. Instructions following sedation [...] occurs, please contact [place] [address] [email or web address] [facility] documented in this encounter Medications at Time [...] Verio test strips Strip USE DAILY 01/03/2022 A[employer] Delica Plus Lancet 33 gauge Misc USE [...] 11/02/2024 12:00 PM EDT [place]oint[place] [address] 11/02/2024 1:00 PM EDT Office [place] [address] Magdalena Peralta MD [facility] [place] [address] 03/01/2025 4:15 PM EDT Office Visit Dermatology at [place] [address] [place] [address] Marek Bonilla MD [address], [place] [address] documented as of this encounter Procedures Procedure [...] EST Diagnostic Bone Marrow Biopsies & Aspirations (25222) 06/05/2024 2:03 PM EST Anemia, in pt [...] [facility] ISCN Nomenclature nuc josselin(D5S23,EGR1)x2[ 200],(D7Z1,S9I887) x2[200],(D8Z2,D20S 108)x2[200] 06/08/2024 11:23 PM [facility] Culture Type Direct Nocatee 06/08/20 24 11:23 PM [facility] FISH [...] analysis using probes for CEP7/D7Z1/7p11.1q1 1.1 and I3N935/7q31 loci ([employer] shows 1.5% and 0% of 200 cells with 7q signal deletion (7q-) and chromosome 7 signal loss (monosomy 7) patterns, respectively. These are within acceptable reference limits (7q deletion: 0-6.3%; monosomy 7: 0-4.4%). Thus, there is no evidence for 7q deletion and monosomy 7. Interphase FISH analysis using probes for CEP8/D8Z2/8p11.1q1 1.1 and A46U851/20q12 loci ([employer] shows 0% and 2.5% of 200 [...] The FISH probes are directly-labeled by the typesetting machine operator/tender ([employer] or [employer]) with either a spectrum orange, green, or aqua fluorochrome. Cells are stained with DAPI ([employer]), visualized through fluorescence microscopy, and images captured on the CytoVision software ([employer]). Results are reported based on an International System for Human Cytogenomic Nomenclature. 06/08/2024 11:23 PM [facility] Limitations & Disclaimers The FISH test was developed and its performance characteristics were determined by the [facility] ([facility] Cytogenetics Laboratory as required by The Clinical [...] verified the test's accuracy and precision. The [facility] Cytogenetics Laboratory is certified under the CLIA'88 as qualified to perform high complexity clinical laboratory testing. Chromosome alterations outside the regions complementary to these DNA FISH probes will not be detected. 06/08/2024 11:23 PM EST [facility] Sign-out by Professional component performed by Lizette Bullock, Ph.D., [facility], [address], [place], [place] (CLIA #: [id number]). 06/08/2024 11:23 PM EST [facility] Bone Marrow Non Blood Collection / Unknown 06/05/2024 2:22 PM EST 06/05/2024 3:07 PM EST Georges Boucher MD MOLECULAR ORDERABLES Performing Organization Address City/[facility]/ZIP Co de Phone Number [facility] [place] [address] * Chromosome Analysis, Acquired ([facility]) (06/05/2024 2:22 PM EST) Pathologist [facility] Chromosome, Leukemia/Lymph ananya ([facility]) See Scanned Result 06/14/2024 6:28 PM EST REF [facility] Specimen Condition ([facility]) 06/14/2024 6:28 PM EST REF [facility] Bone Marrow Non Blood Collection / Unknown 06/05/2024 2:22 PM EST 06/05/2024 3:07 PM EST Georges Boucher MD LAB SEND OUT ORDERAB LES REF [facility] [address] [place] [address] * HemeSeq (Bone Marrow) (06/05/2024 2:22 PM EST) NGS Report Status Normal 06/13/2024 10:21 AM EST [facility] Bone Marrow Non Blood Collection / Unknown 06/05/2024 2:22 PM EST 06/05/2024 3:07 PM EST Georges Boucher MD MOLECULAR ORDERABLES [facility] [place] [address] * Immunophenotyping Flow Cytometry (06/05/2024 2:22 PM [...] 06/06/2024 2:08 PM [facility] [place]:Lambda Ratio 1.8 06/06/2024 2:08 PM [facility] [...] by the Clinical Flow Cytometry Laboratory at [facility]. It has not been cleared [...] MD HEMATOLOGY ORDERABLE S Performing Organization Address [facility] [place] [address] * BM HOLD CYTOGENETICS/FISH (06/05/2024 2:22 PM EST) Bone Marrow Non Blood Collection / Unknown 06/05/2024 2:22 PM EST 06/05/2024 3:07 PM EST Narrative [facility] - 06/06/2024 10:47 AM EST ~3ml Markel Borjas MD PATHOLOGY/CYTOLOGY ORDERABLES Performing Organization Address [facility] [place] [address] * BM HOLD FLOW/MOLECULAR (06/05/2024 2:22 PM EST) Bone Marrow Non Blood Collection / Unknown 06/05/2024 2:22 PM EST 06/05/2024 3:07 PM EST Markel Borjas MD PATHOLOGY/CYTOLOGY ORDERABLES Performing Organization Address [facility] de Phone Number [facility] [place] [address] * Bone Marrow (06/05/2024 2:22 PM EST) Case Report Bone Marrow Patholog y Report ?Case: [id number] ? Authorizing Provider: ??Markel Borjas MD ?Collected: ? 06/05/2024 1422 ? Ordering Location: ? [facility] ??Received: ?06/05/2024 1508 ? [facility] ? Hospital ? Pathologist: ? Citlaly, Georges L, MD ? Specimens: ?? A) - Iliac Crest, Left ? B) - Iliac Crest, Left ? C) - Iliac Crest, Left ? 11/21/202 4 1:31 PM EST [facility] Integrated Results Bone marrow [...] in toto in 1 cassette labeled C1. [facility] 1:31 PM [facility] Disclaimer(s) [...] criteria and other diagnostic tests. 1:31 PM [facility] Bone [...] stores present, no ring sideroblasts. 1:31 PM [facility] Bone [...] bone normal for age. 1:31 PM EST [facility] Bone Marrow Differential Band/Seg 34%; Lymph 8%; [place] 0%; Eos 2%; Baso 1%; Metamyelocyte 13%; Myelocyte 9%; Promyelocyte 2%; Blast 1%; nRBC's 27%; Plasma cell 3% 4 1:31 PM EST [facility] Result Note Routine 1:31 [...] PATHOLOGY/CYTOLOGY ORDERABLES [facility] [place] [address] * (ABNORMAL) CBC (with Diff) (06/05/2024 1:45 [...] 3.20 x10(3)/mc L 06/05/2024 2:38 PM EST [facility] Monocyte % 15.0 % [...] MD HEMATOLOGY ORDERAB LES Performing Organization Address City/State/[facility] Co de Phone Number [facility] [place] [address] documented in this encounter Visit Diagnoses Not [...] RN) documented in this encounter Care Teams Compression Molding Machine Setter Relationship Specialty Start Date End Date Magdalena Acosta MD [address] [place] [address] PCP - General Family Medicine 02/05/23 documented as of this encounter
--- OUTSIDE RECORDS SUMMARY | 2024-07-13 14:08 | XMS_ITS | Encounter Summary ---
Author Organization [facility] Address [facility] [place] [address] Care Team Providers Care Business Center Representative Name Role Phone Magdalena Acosta MD Primary Care Provider [phone] Reason for Visit * Reason Comments Follow-up * Consultation (Routine) - Closed Specialty Diagnoses / Procedures Referred By Contac t Referred To Contact Hematology and Oncology Diagnoses Anemia, unspecified type Consuelo Guerrero, DO [address] [place] [address] [place] [address] [facility] Hem Onc [address] [place] [address] Referral ID Status Reason Start Date Expiration Date V isits Requested Visits Authorized [id number] Closed Consult, Test & Treat 04/11/2024 04/11/2025 1 1 Encounter Details Date Type Department Care Team (Late st Contact Info) Description 05/12/2024 10:00 AM EDT Office Visit Hematology [place] [address] [facility] [address] [place] [address] Chronic idiopathic neutropenia Social History [...] 05/12/2024 10:00 AM EDT Hematology Outpatient [facility] Hematology Outpatient Consult Note CC: 60 [...] TOUCH PREP, CLOT SECTION, CORE BIOPSY); [OSR# [id number], COLLECTED 06/23/2016, 19 SLIDES]: 1. 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 pantoprazole EC (Protonix) 40 [...] intact. Extremities: No edema. Labs: Hgb= 11.7 Qdys=646 ANC= 2.5 Assessment: 60 year-old woman found [...] 11/02/2024 12:00 PM EDT Appointment [place] [address] 11/02/2024 1:00 PM EDT Office [place] [address] [facility] [place] [address] 03/01/2025 4:15 PM EDT Office Visit Dermatology at [place] [address] [place] [address] Marek Bonilla MD [address] [place] [address] documented as of this encounter Results * [...] EDT 05/12/2024 8:56 AM EDT Tova Russell FIRE EXTINGUISHER SPRINKLER INSPECTOR HEMATOLOGY ORDERABL ES [facility] [place] [address] * (ABNORMAL) Comprehensive metabolic panel Non-fasting (05/12/2024 [...] EDT 05/12/2024 8:56 AM EDT Tova Russell FIRE EXTINGUISHER SPRINKLER INSPECTOR CHEMISTRY ORDERABLE S [facility] [place] [address] * (ABNORMAL) CBC (with Diff) (05/12/2024 8:56 AM EDT) White Blood Cell 3.47(L) 4.00 - 9.50 x10(3)/mc L 05/12/2024 9:32 AM EDT [facility] Red Blood Cell 3.31(L) 4.00 - 5.21 x10(6)/mc L 05/12/2024 9:32 AM [facility] Hemoglobin 11.1(L) 11.7 - 15.5 g/dL 05/12/2024 9:32 AM [facility] Hematocrit 33.2(L) 35.7 - 45.8 % 05/12/2024 9:32 AM [facility] Mean Cell Volume 100.3(H) 82.6 - 94.4 fL 05/12/2024 9:32 AM [facility] Mean Cell Hemoglobin 33.5(H) 27.1 - 32.0 pg 05/12/2024 9:32 AM [facility] Mean Cell Hemoglobin Concentration 33.4 31.7 - 35.0 g/dL 05/12/2024 9:32 AM [facility] Platelet 142(L) 145 - 357 x10(3)/mc L 05/12/2024 9:32 AM [facility] Mean Platelet Volume 8.7 7.6 - 12.9 fL 05/12/2024 9:32 AM [facility] RDW Standard Deviation 44.4 37.0 - 46.0 fL 05/12/2024 9:32 AM [facility] RDW [...] 0.10 x10(3)/mc L 05/12/2024 9:32 AM EDT [facility] Immature Gran % 0.3 % 9:32 AM EDT [facility] Immature Gran Absolute <0.04 0.00 - 0.04 x10(3)/mc L 05/12/2024 9:32 AM EDT [facility] Blood VENOUS BLOOD SPECIMEN / Unknown Venipuncture / Unknown 05/12/2024 8:56 AM EDT 05/12/2024 8:56 AM EDT Tova Russell FIRE EXTINGUISHER SPRINKLER INSPECTOR HEMATOLOGY ORDERABL ES [facility] [place] [place] [address] documented in this encounter Visit Diagnoses Diagnosis Chronic idiopathic neutropenia Other neutropenia documented in this encounter Care Teams Business Center Representative Relationship Specialty Start Date End Date Magdalena Acosta MD [address] [place] [address] PCP - General Family Medicine 02/05/23 documented as of this encounter
--- OUTSIDE RECORDS SUMMARY | 2024-07-13 14:08 | XMS_ITS | Encounter Summary ---
Author Organization [facility] [place] [address] Care Team Providers Care Contracting Officer Name Role Phone Magdalena Acosta MD Primary Care Provider Reason for Visit * Reason Comments Coronary Artery Disease Hypertension Aortic Stenosis Encounter Details Date Type Department Care Team (Latest Contact Info) Description 07/20/2023 4:40 PM EST TH Visit (TeleHealth) Cardiology at [address] [address] Jay Maza PA [facility] [place] [address] HFrEF (heart failure with reduced ejection fraction); [...] Maza PA - 07/20/2023 4:40 PM EST [facility] Heart [...] of an in person office visit. Associate Professor Of English: Antelmo Sharma MD ([facility] Cards) Maria Luz Mejia MD ([facility] / [facility] cards) Problem List: : [...] artery disease by [facility] 11/09/2022 I25.10 Heart failure with [...] notable for coronary artery protection given low jgoof-da-khzmrcxs distance. There was no obstruction post Valve deployment, but the stent could not be removed safely, so it was deployed. 4.0 mm x 30mm in left main. She was loaded on brilinta aka ticagrelor. Immediately post valve deployment, chest compressions to circulate central epinephrine which was administered given her hypotension, low LVEF, and low cardiac reserve. Next, the patient was transferred to [facility] for pressor and inotropic support. Pressors weaned overnight. Cardiac indices by thermodilution remained greater than 3 with continued Milrinone 0.125 mcg/kg/min. EKG the next day with NSR with stable VA/QRS intervals. Hemoglobin 7.8 [...] arms and wrists. Successful right transfemoral TAVR Bsyzg-nh-Jfwim with a 23 mm Lai 3 THV. [...] leads Confirmed by MD Harshil, Haris Bell ([id number]) on 05/10/2023 8:11:46 AM Cardiac Cath 11/09/2022 [...] in chart review and direct patient contact. [id number] 0-5min 2366YDP1 6-10min [id number] 11-15min [id number] 16-20min x [id number] 21-30min 2936MQF4 31-40min [id number] 40+ min Jay Maza PA-C Interventional Cardiology [facility] Heart and Vascular [facility] Pager [phone] documented in this encounter Plan of Treatment Upcoming Encounters Date Type Department Care Team (Late st Contact Info) Description 11/02/2024 12:00 PM EDT Appointment [place] [address] 11/02/2024 1:00 PM EDT Office Visit [place] [address] Magdalena Peralta MD [facility] [place] [address] 03/01/2025 4:15 PM EDT Office Visit Dermatology at [place] [address] [place] [address] Marek Bonilla MD [address] [place] [address] documented as of this encounter Visit Diagnoses Diagnosis HFrEF (heart failure with reduced ejection fraction) Hypertension, unspecified type Aortic valve stenosis, etiology of cardiac valve disease unspecified documented in this encounter Care Teams Contracting Officer Relationship Specialty Start Date End Date Magdalena Acosta MD [address] [place] [address] PCP - General Family Medicine 02/05/23 documented as of this encounter
--- OUTSIDE RECORDS SUMMARY | 2024-07-13 14:08 | XMS_ITS | Encounter Summary ---
Author Organization Formerly [facility] [place] [address] Care Team Providers Care Mail Carrier Technician Name Role Phone Magdalena Acosta MD Primary Care Provider [phone] Encounter Details Date Type Department Care Team (Latest Contact Info) Description 05/12/2024 9:00 AM EDT Laboratory Appointment [place] [facility] [place] [address] [place] [phone] S/P TAVR (transcatheter aortic valve replacement); [...] 11/02/2024 12:00 PM EDT Appointment [place] [phone] 11/02/2024 1:00 PM EDT Office [place] [phone] Magdalena Prealta MD [facility] [place] [address] 03/01/2025 4:15 PM EDT Office Visit Dermatology at [place] [address] [place] [phone] Marek Bonilla MD [address], [place] [address] documented as of this encounter Procedures Procedure [...] - 2.50 % 05/12/2024 9:32 AM EDT [facility] Retic Abs # 0.0397 0.0200 - 0.1100 x10(6)/mcL 05/12/2024 9:32 AM EDT [facility] Immature Retic% 8.1 0.5 - 13.8 % 05/12/2024 9:32 AM EDT [facility] Reticulated Hgb 35.2 29.8 - 39.4 pg 05/12/2024 9:32 AM EDT [facility] Blood VENOUS BLOOD SPECIMEN / Unknown Venipuncture / Unknown 05/12/2024 8:56 AM EDT 05/12/2024 8:56 AM EDT Tova Russell MANAGER PERSONNEL SELECTION HEMATOLOGY ORDERABL ES [facility] [place] [address] * (ABNORMAL) Comprehensive metabolic panel Non-fasting (05/12/2024 8:56 AM EDT) Glucose 86 65 - 199 mg/dL 05/12/2024 11:36 AM [facility] Comment:Glucose Concentratio n >=200 mg/dL [...] - 105 unit/L 05/12/2024 11:36 AM EDT [facility] Bilirubin, Total 0.2 <=1.3 mg/dL 05/12/2024 11:36 AM EDT [facility] Est Glomerular Filtration Rate - Female 72 mL/min/1. 73 m?? 05/12/2024 11:36 AM EDT [facility] Comment: This patient's [...] Fasting Status No 05/12/2024 11:36 AM EDT [facility] Blood VENOUS BLOOD SPECIMEN / Unknown Venipuncture / Unknown 05/12/2024 8:56 AM EDT 05/12/2024 8:56 AM EDT Tova Russell MANAGER PERSONNEL SELECTION CHEMISTRY ORDERABLE S [facility] [place] [address] * (ABNORMAL) CBC (with Diff) (05/12/2024 8:56 AM EDT) White Blood Cell 3.47(L) 4.00 - 9.50 x10(3)/mc L 05/12/2024 9:32 AM EDT [facility] Red Blood Cell 3.31(L) 4.00 - 5.21 x10(6)/mc L 05/12/2024 9:32 AM EDT [facility] Hemoglobin 11.1(L) 11.7 - 15.5 g/dL 05/12/2024 9:32 AM EDT [facility] Hematocrit 33.2(L) 35.7 - 45.8 % 05/12/2024 9:32 AM [facility] Mean Cell Volume 100.3(H) 82.6 - 94.4 fL 05/12/2024 9:32 AM [facility] Mean Cell Hemoglobin 33.5(H) 27.1 [...] % 12.1 % 05/12/2024 9:32 AM EDT [facility] Monocyte Absolute 0.42 0.30 - 0.90 x10(3)/mc L 05/12/2024 9:32 AM EDT [facility] Eos % 0.6 % 05/12/2024 9:32 AM EDT [facility] Eos Absolute <0.04 0.00 - 0.40 x10(3)/mc L 05/12/2024 9:32 AM EDT [facility] Basophil % 0.6 % 05/12/2024 9:32 AM EDT [facility] Baso Absolute <0.04 0.00 - 0.10 x10(3)/mc L 05/12/2024 9:32 AM EDT [facility] Immature Gran % 0.3 % 9:32 AM EDT [facility] Immature Gran Absolute <0.04 0.00 - 0.04 x10(3)/mc L 05/12/2024 9:32 AM EDT [facility] Blood VENOUS BLOOD SPECIMEN / Unknown Venipuncture / Unknown 05/12/2024 8:56 AM EDT 05/12/2024 8:56 AM EDT Tova Russell MANAGER PERSONNEL SELECTION HEMATOLOGY ORDERABL ES [facility] [place] [address] documented in this encounter Visit Diagnoses Diagnosis S/P TAVR (transcatheter aortic valve replacement) Chronic idiopathic neutropenia Other neutropenia documented in this encounter Care Teams Mail Carrier Technician Relationship Specialty Start Date End Date Magdalena Acosta MD [address] [place] [address] PCP - General Family Medicine 02/05/23 documented as of this encounter
--- OUTSIDE RECORDS SUMMARY | 2024-07-13 14:09 | XMS_ITS | Encounter Summary ---
Author Organization [facility] [place] [address] Care Team Providers Care Side Framer Name Role Phone Magdalena Acosta MD Primary Care Provider [phone] Reason for Referral * Diagnostic Test (Routine) - Closed Specialty Diagnoses / Procedures Referred By Contac t Referred To Contact Cardiology Diagnoses S/P TAVR (transcatheter aortic valve replacement) Procedures Echocardiogram Transthoracic Vinod Juárez PA [facility] [place] [address] [facility] [place] [address] Referral ID Status Reason Start Date Expiration Date V isits Requested Visits Authorized [id number] Closed Specialty Service Requested 05/22/2023 05/21/2024 1 1 Reason for Visit * Diagnostic Test (Routine) - Closed Specialty Diagnoses / Procedures Referred By Contac t Referred To Contact Cardiology Diagnoses S/P TAVR (transcatheter aortic valve replacement) Procedures Echocardiogram Transthoracic Vinod Juárez PA [facility] [place] [address] [facility] [place] [address] Referral ID Status Reason Start Date Expiration Date V isits Requested Visits Authorized [id number] Closed Specialty Service Requested 05/22/2023 05/21/2024 1 1 Encounter Details Date Type Department Care Team (Latest Contact Info) Description 07/08/2023 10:19 AM EST - 07/08/2023 11:59 PM EST Hospital Encounter [place] [address] Alirio Esparza MD S/P TAVR (transcatheter aortic [...] 11/02/2024 12:00 PM EDT Appointment [place] [address] 11/02/2024 1:00 PM EDT Office [place] [address] Magdalena Peralta MD [facility] [address] [place] [address] 03/01/2025 4:15 PM EDT Office Visit Dermatology at [place] [address] [place] [phone] Marek Bonilla MD [address], [place] [address] documented as of this encounter Procedures Procedure [...] EST Narrative 07/08/2023 12:26 PM EST 1 [place] [address] ? Echocardiogram Report Name: ONESIMO THACKER ?Study Date: 07/08/2023 10:31 AMBP: 118/60 mmHg ? Patient Location: 4A : 1955 ? Height: 155 cm ? Account: [id number] Age: 67 yrs ? Weight: 74 kg [...] no significant change (post-procedure). Procedure Limited - 02224. Doppler - 42295. Color Doppler - 89093. Satisfactory quality. This study is limited because [...] Note Lee Kincaid MD - 07/08/2023 1 [place] [address] Echocardiogram Report Name: ONESIMO THACKER Study Date: 310:31 AMBP: 118/60 mmHg Patient Location: : 1955 Height: 155 cm Account: [id number] Age: 67 yrs Weight: 74 kg Gender: [...] is nosignificant change (post-procedure). Procedure Limited - 51110. Doppler - 41826. Color Doppler - 99547. Satisfactoryquality. This study is limited because of [...] replacement) documented in this encounter Care Teams Side Framer Relationship Specialty Start Date End Date Magdalena Acosta MD [address] [place] [address] PCP - General Family Medicine 02/05/23 documented as of this encounter
--- OUTSIDE RECORDS SUMMARY | 2024-07-13 14:09 | XMS_ITS | Encounter Summary ---
Author Organization [facility] [place] [address] Care Team Providers Care Assistant Surveyor Name Role Phone Magdalena Acosta MD Primary Care Provider [phone] Encounter Details Date Type Department Care Team (Late st Contact Info) Description 05/27/2023 Refill Cardiology at [address] [phone] Vero Marrero, RN Social History Tobacco Use [...] PM EDT TC to Nurse Sosa at [facility] to relay response from Jay Maza copied below. Nurse Sosa states they will send a new prescription to patient's preferred pharmacy and call the patient with the medication information. No print prescription sent to update med list. May 27, 2023 Jay Maza PA to [place] 05/27/23 2:44 PM OK to change ticagrelor to Clopidogrel. Now, she should be taking ticagrelor 90mg BID. When she switches, she can take ticagrelor, then the next morning, stop ticagrelor, instead take clopidogrel 300mg once, then after that 75mg once daily. Jay Marrero provider relations rep Clinic at [facility] [phone] * Telephone Encounter - Vero Marrero RN - 05/27/2023 1:46 PM EDT VM received from triage nurse Sosa at [facility] stating patient was seen today by [...] more affordable option, if possible. Vero Marrero provider relations rep Clinic at [facility] [phone] documented in this encounter Plan of Treatment Upcoming Encounters Date Type Department Care Team (Late st Contact Info) Description 11/02/2024 12:00 PM EDT Appointment [place] [phone] 11/02/2024 1:00 PM EDT Office [place] [phone] Magdalena Peralta MD [facility] [place] [address] 03/01/2025 4:15 PM EDT Office Visit Dermatology at [address] [phone] Marek Bonilla MD [facility] [address] [place] [address] documented as of this encounter Visit Diagnoses Diagnosis Aortic valve stenosis, etiology of cardiac valve disease unspecified documented in this encounter Care Teams Assistant Surveyor Relationship Specialty Start Date End Date Magdalena Acosta MD [address] [place] [address] PCP - General Family Medicine 02/05/23 documented as of this encounter
--- OUTSIDE RECORDS SUMMARY | 2024-07-13 14:09 | XMS_ITS | Encounter Summary ---
Author Organization [facility] [place] [address] Care Team Providers Care Motor Racer Name Role Phone Magdalena Acosta MD Primary [...] 11/02/2024 12:00 PM EDT Appointment [place] [phone] 11/02/2024 1:00 PM EDT [place] [phone] Magdalena Peralta MD [facility] [place] [address] 03/01/2025 4:15 PM EDT Office Visit Dermatology at [place] [address] [place] [address] Marek Bonilla MD [address] [place] [address] documented as of this encounter Visit Diagnoses Not on filedocumented in this encounter Care Teams Motor Racer Relationship Specialty Start Date End Date Magdalena Acosta MD [address] [place] [address] PCP - General Family Medicine 02/05/23 documented as of this encounter
--- OUTSIDE RECORDS SUMMARY | 2024-07-13 14:10 | XMS_ITS | Encounter Summary ---
Author Organization [facility] Address [facility] [place] [address] Care Team Providers Care Generator Rebuilder Name Role Phone Magdalena Acosta MD Primary Care Provider [phone] Reason for Referral * Diagnostic Test (Routine) - Closed Specialty Diagnoses / Procedures Referred By Contac t Referred To Contact Cardiology Diagnoses S/P TAVR (transcatheter aortic valve replacement) Procedures Echocardiogram Transthoracic Vinod Juárez PA [facility] [place] [address] [facility] [place] [address] Referral ID Status Reason Start Date Expiration Date V isits Requested Visits Authorized [id number] Closed Specialty Service Requested 05/22/2023 05/21/2024 1 1 * Home Health Care (Routine) - Closed Specialty Diagnoses / Procedures Referred By Contac t Referred To Contact Diagnoses S/P TAVR (transcatheter aortic valve replacement) Alirio Hudson MD [facility] CARDIOTHORACIC SURGERY [address] [facility] [address] [place] [address] Referral ID Status Reason Start Date Expiration Date V isits Requested Visits Authorized [id number] Closed Consult, Test & Treat 05/22/2023 11/18/2023 999 999 * Consultation (Routine) - Closed Specialty Diagnoses / Procedures Referred By Crispin maxwell Referred To Contact Cardiology Diagnoses S/P TAVR (transcatheter aortic valve replacement) Alirio Hudson MD [facility] [place] [address] Cardiac Rehab, [address] [place] [address] Referral ID Status Reason Start Date Expiration Date V isits Requested Visits Authorized [id number] Closed Consult, Test & Treat 05/22/2023 11/18/2023 36 36 * Diagnostic Test (Routine) - Closed Specialty Diagnoses / Procedures Referred By Crispin maxwell Referred To Contact Cardiology Diagnoses Aortic valve stenosis, etiology of cardiac valve disease unspecified Procedures Echocardiogram Transthoracic Transesophageal Echocardiogram (YUSRA) Radha Hollins MD [facility] [place] [address] [facility] [place] [address] Referral ID Status Reason Start Date Expiration Date V isits Requested Visits Authorized [id number] Closed Specialty Service Requested 05/11/2023 05/10/2024 1 1 Reason for Visit * Auth/Cert (Routine) Specialty Diagnoses / Procedures Referred By Crispin maxwell Referred To Contact Diagnoses Symptomatic severe aortic stenosis with low ejection fraction NSTEMI, CHF Enrique Chua MD [facility] [place] [address] [facility] Referral ID Status Reason Start Date Expiration Date Visits Re quested Visits Authorized [id number] 1 1 Encounter Details Date Type Department Care Team (Latest Contact Info) Description 05/08/2023 9:14 AM EDT - 05/22/2023 10:46 AM EDT Hospital Encounter Heart and Vascular Unit Level 4 [place] [address] Enrique Chua MD [facility] [place] [address] Juan Luis Gonzalez MD [facility] [place] [address] Radha Hollins MD [facility] [place] [address] Alirio Hudson MD S/P TAVR (transcatheter aortic valve replacement) (Primary Dx); Aortic valve stenosis, etiology of cardiac valve disease unspecified; Symptomatic severe aortic stenosis with low ejection fraction; Heart failure with reduced ejection fraction due to heart valve disease; Mild coronary artery disease by [facility] 11/09/2022; Mixed connective tissue disease; Neck [...] Patient Age: 67 y.o. Birthdate: 1955 Language: Korean Race: White Ethnicity: Not nor Admit Date: 05/08/2023 Discharge Date: 05/22/2023 Attending Physician: Alirio Hudson MD Follow-up Recommendations for Providers: Please continue routine management of cardiovascular risk factors including blood pressure, lipids,glucose, etc. Please note any medication changes. Patient to follow up with PCP, Magdalena Acosta MD, or Primary Information Technology Project Manager, Maria Luz Mejia MD, in ~ 7-10 days. Patient to follow up with Cotton Buyer, Dr. Antelmo Sharma, in 2 weeks with an EKG, Echo, CBC, and CMP. Patient to follow up with Nephrology, their office to arrange. Ossw-Facozs-tk interval: After initial 30 day follow-up appointment , all TAVR patients will follow-up again in one year with an echo. 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 INTERVENTIONL RAD PRG CATH PLMT LEFT HEART CATH & ARTS W/INJ & ANGIO IMG S&I N/A 11/09/2022 CORONARY ANGIOGRAPHY; W [facility],POSSIBLE PCI (WRVU 5.6) performed by Mario Alberto Escobedo MD at [facility] CATH LABS PRG COMBINED RIGHT & LEFT HEART CATH W/INJ L VENTRICULOGRAPHY, IMG S&I N/A 05/12/2023 COMBINED RIGHT & LEFT HEART CATH,INC INJ FOR L VENTRICULOGRAPHY (WRVU 5.99) performed by Antelmo Sharma MD at [facility] CATH LABS PRO AORTOPLAS FOR SUPRAVALV STEN N/A 09/21/2016 @AORTOPLASTY FOR SUPRAVALVULAR STENOSIS (WRVU 29.33) performed by Alirio Hudson MD at [facility] MAIN OR PRO REPLACE AORTIC VALVE (TAVR/FEDEIRCO)PERC FEMORAL ARTERY APPROACH 05/12/2023 @TRANSCATHETER AORTIC VALVE REPLACEMENT (TAVR), PERCUTANEOUS FEMORAL (WRVU 22.47) performed by Alirio Hudson MD at [facility] CATH LABS PRO REPLACEMENT PROSTHETIC AORTIC VALVE OPEN W CARDIOPULMONARY BYPASS HOMOGRF/STENT N/A 09/21/2016 @REPLACE AORTIC VALVE, OPEN, W\CPB, W\PROSTHETIC VALVE (WRVU 41.32) performed by Alirio Hudson MD at [facility] MAIN OR Prior To Admission Medications Medications [...] Major Procedures/Operations: 05/12/23: Successful right transfemoral TAVR Qmfos-to-Xprbc with a 23 mm Lai 3 THV. Left coronary protection with left main MINNA. Hospital Course: #Severe prosthetic s/p valve in valve TF TAVR #Low coronary heights s/p left main stent for coronary protection #Type 2 NSTEMI, present on arrival, resolved #Acute decompensated HFrEF #Cardiogenic shock #EVANS / Cardiorenal syndrome Purnima Thacker was admitted to [facility] on 05/08/2023 via the Cardiology [...] TAVR and she was brought to the woodworking shop laborer the following morning where Drs. Alirio [...] if you have questions. Please call your Cotton Buyer's office if you have any discharge or drainage from your procedural sites. Your Cotton Buyer, Dr. Antelmo Sharma and/or the Net Manager may be reached at . Antibiotic [...] of this card. Please refer to the [place] [...] low cholesterol, [place] [employer] Diet Driving: No restrictions. Shower/Bath: You may shower daily. No baths, soaking, or swimming for the first week. Wound care: Wash the sites daily with soap and rinse well, pat dry. Assess for any signs of infection such as increased redness, pain, warmth or drainage. Please call your wire bound box machine operator's office if you have any discharge or drainage from your procedural sites. If there is a lot of swelling, apply mamta wraps during the day and remove at bedtime. Elevate your legs when you are sitting. Home oxygen therapy: N/A Follow up appointments: Please schedule a follow-up appointment with your PCP, Magdalena Acosta MD, or Primary Information Technology Project Manager in ~ 7-10 days. You have a follow-up appointment with your Cotton Buyer, Dr. Antelmo Sharma, in 2 weeks with an EKG, Echo, and labs prior to your appointment. You will need follow-up with Nephrology, their office will arrange. Njdq-Egepls-ab interval: After initial 30 day follow-up appointment [...] [facility] [place] [place] Arrive at: Automotive Sales Specialist Area 5C [phone] 02/11/2024 2:00 PM Marek Bonilla MD Dermatology at [place] Arrive at: [facility] [address] [phone] Future Orders Complete By Expires Type and Screen Future Surgery, [facility] [place] [place] SAME DAY PROGRAM ONLY) [[id number] Custom] 05/11/2023 Process Instructions: This test is intended ONLY for patients with upcoming surgery for testing prior to the day of surgery obtained through the same day program (4V or SDP). For ALL OTHER PATIENTS, order a Type and Screen ([id number]) This order includes the physician order for an ABO Recheck if requested by the Blood Bank. Scheduling Instructions: Comments: Questions: Date of surgery: CBC (with Diff) [AVX347 Custom] 06/05/2023 12/05/2023 Process Instructions: INCLUDES: WBC, RBC, Hgb, Hct, Platelets, RBC Indices and Differential Scheduling Instructions: Comments: Questions: Comprehensive metabolic panel (non-fasting) [LAB17 Custom] 06/05/2023 08/20/2023 Process Instructions: INCLUDES: Calcium, T Protein, Albumin, AST, ALT, Alk Phos, T Bili, BUN, Creat, GFR, Glucose, Lytes. Scheduling Instructions: Comments: Questions: Echocardiogram Transthoracic [94539 CPT(R)] 06/05/2023 12/05/2023 Process Instructions: Scheduling Instructions: Questions: Where will study be performed?: [facility] [place] [place] Clinics Does the patient have Congenital Heart Disease?: Does patient require sedation?: GA rationale: EKG 12 Lead [67189 CPT(R)] 06/05/2023 12/05/2023 Process Instructions: Scheduling Instructions: Questions: Which location will this be performed?: [place] Is a rhythm strip needed?: No [facility] Devices [EQ161 Custom] As directed Process Instructions: Scheduling Instructions: Questions: Device Needed: WALKER (E0143) Patient Height (cm): 154.9 cm (5' 0.98) Patient Weight: 75.4 kg (166 lb 3.2 oz) Diagnosis: Unsteady gait when walking Referral to Cardiac Rehab [BSK415 Custom] As directed Process Instructions: If no [...] VNA SERVICES PATIENT'S LOCATION: Purnima Thacker [address] [place] [phone] (home) Rolling Mill Plugger's Name: Self and brother Raymond In discussion with the attending physician, it is certified that this patient is under his/her careand that MD, or an WOOD HEEL FLAP RUBBER, MANAGER ELECTRONIC, or PA who is working directly with him/her, had a oiqo-uv-uzxs encounter that meets the physician lrga-ou-cuit encounter requirements with this patient on 05/22/2023. [...] for managing ADLs. HOME HEALTH CARE AGENCY: [facility]. [address] [place] [address] PHONE: [phone] FAX: [phone] Start of care: Ideally 24-48 hours after [...] Acosta MD [address] / [facility] [address] All VNA agencies which cover the area of patient's residence have been reviewed, either verbally joao writing, and patient has chosen the home health care agency noted. Questions: Disciplines Requested: Physical Therapy Occupational Therapy Discharge References/Attachments None Arrangements for VNA/home care: As above. (delete if no VNA) Signed: EKATERINA NAVARRETE [facility] Section of Cardiac Surgery Date: 05/22/2023 CC: Magdalena Acosta MD [place] CreekMario Alberto MD [address] [place] [address] documented in this encounter Discharge Instructions * Patient Instructions* Vinod Juárez PA - 05/22/2023 9:32 AM EDT TAVR Discharge Instructions: Call your doctor if: You have a fever of greater than 101 degrees, shaking chills, if you develop redness or drainage from your procedure sites, or if you have questions. Please call your Cotton Buyer's office if you have any discharge or drainage from your procedural sites. Your Cotton Buyer, Dr. Antelmo Sharma and/or the Net Manager may be reached at . Antibiotic [...] of this card. Please refer to the [place] [...] low cholesterol, [place] Heart Association Diet Driving: No restrictions. Shower/Bath: You may shower daily. No baths, soaking, or swimming for the first week. Wound care: Wash the sites daily with soap and rinse well, pat dry. Assess for any signs of infection such as increased redness, pain, warmth or drainage. Please call your wire bound box machine operator's office if you have any discharge or drainage from your procedural sites. If there is a lot of swelling, apply mamta wraps during the day and remove at bedtime. Elevate your legs when you are sitting. Home oxygen therapy: N/A Follow up appointments: Please schedule a follow-up appointment with your PCP, Magdalena Acosta MD, or Primary Information Technology Project Manager in ~ 7-10 days. You have a follow-up appointment with your Cotton Buyer, Dr. Antelmo Sharma, in 2 weeks with an EKG, Echo, and labs prior to your appointment. You will need follow-up with Nephrology, their office will arrange. Xjbh-Apwujg-xi interval: After initial 30 day follow-up appointment [...] ins ( tef) Haven Ba, PT Pager: [phone] Physical Therapy Inpatient Rehabilitation Department * Nico [...] 0600 and on the weekends please page [phone]. * Jory Paniagua - 05/20/2023 3:52 PM [...] vomiting Last Bowel Movement: 05/20/23 Jory Paniagua Solar Systems Designer * Tong Mike, OT - 05/20/2023 3:16 [...] Placement Right 05/18/[address] [facility] INTERVENTIONL RAD PRG CATH PLMT LEFT HEART CATH & ARTS W/INJ & ANGIO IMG S&I N/A 11/09/2022 CORONARY ANGIOGRAPHY; W [facility],POSSIBLE PCI (WRVU 5.6) performed by Mario Alberto Escobedo MD at [facility] CATH LABS PRG COMBINED RIGHT & LEFT HEART CATH W/INJ L VENTRICULOGRAPHY, IMG S&I N/A 05/12/2023 COMBINED RIGHT & LEFT HEART CATH,INC INJ FOR L VENTRICULOGRAPHY (WRVU 5.99) performed by Antelmo Sharma MD at [facility] CATH LABS PRO AORTOPLAS FOR SUPRAVALV STEN N/A 09/21/2016 @AORTOPLASTY FOR SUPRAVALVULAR STENOSIS (WRVU 29.33) performed by Alirio Hudson MD at [facility] MAIN OR PRO REPLACE AORTIC VALVE (TAVR/FEDERICO)PERC FEMORAL ARTERY APPROACH 05/12/2023 @TRANSCATHETER AORTIC VALVE REPLACEMENT (TAVR), PERCUTANEOUS FEMORAL (WRVU 22.47) performed by Alirio Hudson MD at [facility] CATH LABS PRO REPLACEMENT PROSTHETIC AORTIC VALVE OPEN W CARDIOPULMONARY BYPASS HOMOGRF/STENT N/A 09/21/2016 @REPLACE AORTIC VALVE, OPEN, W\CPB, W\PROSTHETIC VALVE (WRVU 41.32) performed by Alirio Hudson MD at [facility] MAIN OR Social History: Patient lives alone. Home Setup: Pt lives on one level with tub shower and three steps to enter. DME: none used CIRCUS LABORER Baseline ADL/Mobility: Independent with ADLs and IADLs. [...] Discharge planning. Total Minutes, Occupational Therapy: 28 (9734-4763) OT Evaluation Code Rationale: Diagnosis & Pertinent Co-Morbidities affecting Plan of Care: see PMHx Occupational Profile & Client History: Brief Expanded Extensive x Assessment of Occupational Performance: 1-3 performance deficits 3-5 performance deficits x 5 + performance deficits Clinical Decision Making: Low Moderate High x Clinical decision making of moderate complexity using standardized patient assessment instrument and measurable assessment of functional outcome. Pager: [phone] TONG MIKE OT 05/20/2023 Occupational Therapy Rehabilitation Department * Noreen Huang PA - 05/20/2023 10:15 AM EDT Cardiac Surgery Progress Note Purnima Thacekr is a 67 y.o. female with cardiogenic [...] 0600 and on the weekends please page [phone]. * Rylie Rodriguez MD - 05/19/2023 3:59 [...] and plan. Cynthia Blackburn MD Nephrology Pager: [phone] * Diana Espino - 05/19/2023 1:49 PM EDT Regional Dedicated Truck Driver Encounter Note Patient Name: Purnima Thacker : [id number] MR#: [id number] Admit Date: 05/08/2023 9:14 AM Hospital Day [...] as stated. Total Minutes, Physical Therapy: 38 (2320-8134) Henrik Navarrete, CIRCUS LABORER Pager: [phone] Physical Therapy Inpatient Rehabilitation Department * Nico [...] 0600 and on the weekends please page [phone]. * Laure Ricks PA - 05/19/2023 7:56 [...] Ricks PA-C Interventional Radiology IR Team Pager [phone] * Consuelo Espinoza RN - 05/18/2023 4:13 PM EDT ANGIO NURSING DATABASE Name: Purnima Thacker Date of : 1955 AGE: 67 y.o. [address]: [address] [place] [phone] (home) Mobile: No relevant phone numbers on [...] fraction I35.0 Mild coronary artery disease by [facility] 11/09/2022 I25.10 Heart failure with reduced [...] who is being followed by nephrology for VEANS with unknown baseline iso contrast and TAVR. [...] and plan. Cynthia Blackburn MD Nephrology Pager: [phone] * Magdalena Puri, FISCAL ASSISTANT - 05/18/2023 10:51 AM EDT Images from the original note were not included. [facility] [place] [address] STRUCTURAL HEART DISEASE CONSULTATION NOTE PRIMARY CARE [...] stenosis. She is now status post TAVR Ksmvz-rh-Zalib with a 23 mm Lai 3 THV 05/12/[address] Sharma. Preliminary findings: Successful right transfemoral TAVR Zzmit-hu-Mnbdn with a 23 mm Lai 3 THV. [...] ejection fraction Mild coronary artery disease by [facility] 11/09/2022 Heart failure with reduced ejection [...] stenosis. She is now status post TAVR Wbgfz-ed-Jlzai with a 23 mm Lai 3 THV 05/12/[address] Sharma. Janet TAVR case notable for coronary LAD protective MINNA. Status post TAVR, the patient was transferred to [facility] for pressor and inotropic support. [...] Magdalena Puri APRN Structural Heart Team Pager [phone] Team Office Please see addendum by Dr. Sharma for final plan and recommendations Associated attestation - Antelmo Sharma MD - 05/19/2023 10:52 PM EDT I have reviewed Magdalena Puri APRN's above history and I agree with the details as written. The assessment and plan were formulated in discussion with me and I agree with them as documented. Antelmo Sharma MD Pager [phone] * Nico Palacios PA - 05/18/2023 8:13 [...] 0600 and on the weekends please page [phone]. * Loli Hernandez, PT - 05/17/2023 5:27 [...] plan as stated. Time IN / OUT: 2889-5044 Total Minutes, Physical Therapy: 54 Billing Code: te-sx2, te-f, gait LOLI HERNANDEZ PT Pager: [phone] Physical Therapy Inpatient Rehabilitation Department * Cynthia [...] Well controlled. Cynthia Blackburn MD Nephrology Pager: [phone] * Maggie Mara, FISCAL ASSISTANT - 05/17/2023 8:26 AM EDT Cardiac [...] 0600 and on the weekends please page [phone]. * Guerda Del Valle - 05/16/2023 10:44 AM EDT Nutrition Services Note - Low Nutrition Acuity Purnima Thacker is a 67 y.o. female Reason for intervention: hospital day 9 Nutrition Plan: Continue diet order Encourage good PO Lasix and Zofran noted Added special serve: open containers Monitor weight Patient scheduled for a hospital day 9 nutrition evaluation. Manager Of Loss Prevention Operations met with pt at bedside. Pt reports that her appetite and PO has much improved since admission. Denies nausea/vomiting or trouble chewing/swallowing. Manager Of Loss Prevention Operations provided snack list but pt not interested in adding snacks at this time. Her only concern was that she is worried that she will eat too much which will cause too much pressure in her stomach. Manager Of Loss Prevention Operations assured pt and suggested eating smaller but [...] Last Bowel Movement: 05/10/23 Guerda Del Valle Solar Systems Designer * Vinod Juárez PA - 05/16/2023 10:19 [...] 0600 and on the weekends please page [phone]. * Michael Jeffers MD - 05/16/2023 8:11 AM EDT Images from the original note were not included. Hypertension-Nephrology Inpatient Follow-up Purnima Thacker [id number] 1955 ID: 67 y.o. old female seen [...] IRONSAT 12 (L) 05/16/2023 SFOLATE >20.0 07/03/2022 [id number] 07/03/2022 Lab Results Component Value Date [...] Dr. Ayoub. Please contact me at phone: [phone] or pager: [phone] with any questions. Michael Jeffers MD Nephrology [...] -Nephrology consulted, labs and renal US ordered -[place] removed, ambulated around the unit -bilateral pleural [...] 0600 and on the weekends please page [phone]. * Hortencia Cody MD - 05/15/2023 2:07 [...] not included. Hypertension-Nephrology Inpatient Follow-up Purnima Thacker [id number] 1955 ID: 67 y.o. old female seen [...] HGB 7.8 (L) 05/13/2023 SFOLATE >20.0 07/03/2022 [id number] 07/03/2022 Lab Results Component Value Date [...] Dr. Ayoub. Please contact me at phone: [phone] or pager: [phone] with any questions. Michael Jeffers MD Nephrology [...] last 720 hours. T/L/D Art ETT CVL Haugan ASSESSMENT, MANAGEMENT, and DECISION MAKIN y.o. female [...] outlined inthis evaluation. HAVEN BA, PT Pager: [phone] Physical Therapy Inpatient Rehabilitation Department Time IN / OUT: 9110-5232 Total time: Total Minutes, Physical Therapy: 30 [...] 0600 and on the weekends please page [phone]. * Antelmo Sharma MD - 05/14/2023 7:56 AM EDT Images from the original note were not included. [facility] [place] [id number] STRUCTURAL HEART DISEASE CONSULTATION NOTE PRIMARY CARE [...] stenosis. She is now status post TAVR Zxenw-dq-Jnesr with a 23 mm Lai 3 THV 05/12/[address] Sharma. Preliminary findings: Successful right transfemoral TAVR Lwcoh-er-Pozgq with a 23 mm Lai 3 THV. [...] ejection fraction Mild coronary artery disease by [facility] 11/09/2022 Heart failure with reduced ejection [...] stenosis. She is now status post TAVR Hwunp-iy-Wpboz with a 23 mm Lai 3 THV 05/12/[address] Sharma. Janet TAVR case notable for coronary LAD protective MINNA. Status post TAVR, the patient was transferred to [facility] for pressor and inotropic support. [...] Brody Kaplan APRN Structural Heart Team Pager [phone] Team Office Please see addendum by Dr. [...] exposure. Nephrology consultationtoday. Antelmo Sharma MD Pager [phone] * Antelmo Cardenas RN - 05/14/2023 5:18 AM EDT Pt AOx4, complaining of mild/moderate generalized pain (states her Meloxicam is effective at home) currently refusing prn oxycodone. NAEON, hemodynamically stable on Milrinone, Maps >65, ST in tqm177's down to NSR with frequent multifocal PVC's. [...] original note were not included. [facility] [place] [address] STRUCTURAL HEART DISEASE PROGRESS NOTE PRIMARY CARE [...] stenosis. She is now status post TAVR Farwz-su-Qmnla with a 23 mm Lai 3 THV 05/12/[address] Sharma. Preliminary findings: Successful right transfemoral TAVR Wzxty-vr-Hkheb with a 23 mm Lai 3 THV. [...] perforation. Interval Events: - Transferred to [facility] post- TAVR for pressor/inotropic support [...] ejection fraction Mild coronary artery disease by [facility] 11/09/2022 Heart failure with reduced ejection [...] stenosis. She is now status post TAVR Zcrbj-pf-Msxaw with a 23 mm Lai 3 THV [...] DAPT moving forward. Antelmo Sharma MD Pager [phone] * Bonita Miguel PA - 05/13/2023 8:30 AM EDT Cardiac Surgery Progress Note Purnima Thacker is a 67 y.o. 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 PMH of s/p tissue AVR (2017), mixed connective tissue disease HTN, HLD, NICOLAS, diverticulosis, rosacea, essential tremor, and depression. 24h Events: From woodworking shop laborer for above procedure Extubated at ~1600 [...] soft b/l, no evidence of hematoma. Tubes/Lines/Drains: [place], RIJ, A-line, Art, PIV Assessment/Plan: 67 y.o. [...] 0600 and on the weekends please page [phone]. * Onelia Schwartz MD - 05/12/2023 1:44 [...] ejection fraction Mild coronary artery disease by [facility] 11/09/2022 Heart failure with reduced ejection [...] FiO2 weaned to 40%. 1105: ABG 7.34/42/73/22 4785-6095: SBT performed and passed on these settings [...] PCP: Magdalena Acosta MD PCP phone number: [phone] Date of Admission: 05/08/2023 ( Hospital Day [...] 1447 PHART -- 7.34* 7.34* -- -- CVD5FAG -- 30* 30* -- -- PO2ART -- 72* 81* -- -- QHX7AVZ -- 16.0* 15.7* -- -- LACTATEVEN 2.4* 2.7* 2.7* 4.8* 2.9* VBG (Venous Blood Gas) Recent Labs 05/12/23 0700 05/12/23 0318 05/12/2310505/11/23193905/11/23 1447 LACTATEVEN 2.4* 2.7* 2.7* 4.8* 2.9* Mixed Venous Sat Recent Labs 05/12/23 0508 05/12/23 0321 05/12/23 0114 05/12/23 0030 [id number] 30.7 32.7 37.3 25.1 Objective: Vitals Last [...] care giver that requested your imaging first. Cardiac for [...] first. Electronically signed by: Cullen Narayanan MD, [facility] ([phone]), at 05/11/2023 4:[address] Angiogram Abdomen [...] and inotrope. She is planned for a nmjqr-ah-wkgdq TAVR this morning, which should hopefully improve [...] MD, FACP, FACC Section of Cardiovascular Medicine [facility] House Builderfisheries director [facility] at [facility] * Noreen Deutsch RN - 05/12/2023 [...] ejection fraction Mild coronary artery disease by [facility] 11/09/2022 Heart failure with reduced ejection [...] 05/11/2023 4:11 PM EDT Reported off to CUSTOMS INSPECTOR and pt transferred over in the bed for higher level of care. * Antelmo Sharma MD - 05/11/2023 9:45 AM EDT Images from the original note were not included. [facility] [place] [id number] STRUCTURAL HEART DISEASE CONSULTATION NOTE PRIMARY CARE [...] who had been referred for possible TAVR kfogx-qs-uoyhw evaluation. Her primary symptoms are of dyspnea [...] [facility]. 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 [...] ejection fraction Mild coronary artery disease by [facility] 11/09/2022 Heart failure with reduced ejection [...] lab ([facility] [place] Result Value Ref Range Lactate WB 3.1 (H) 0.5 - 2.2 mmol/L Heparin (unfractionated) Level Result Value Ref Range Heparin UFH Level 0.46 IU/mL Lactate, whole blood, send to lab ([facility] [place]) Result Value Ref [...] leads Confirmed by MD Harshil, Enrique Bell ([id number]) on 05/10/2023 8:11:46 AM Cardiac Cath 11/09/2022 [...] alert Dr. Hudson of her inpatient status, billings primary cardiac surgeon. Based on recent clinic visit, tentative plan had been for TAVR JANET ferrera given her chronological age. Cardiac cath 11/09/2022 notable for non-obstructive coronary disease. TAVR CTAs planned for today. Will review her case with cardiac surgery to determine best timing and therapies for her valve intervention. Addendum 05/11/2023 6:48 PM Due to decompensating HFrEF, she was transferred to [facility] this afternoon for further management. TAVR CT imaging support for adequate ileofemoral access. Given her acute deterioration today, will planfor RTF TAVR on 05/12/2023. Brody KaplanANURAG Structural Heart Disease Pager [phone] Please see addendum by Dr. Sharma for [...] signed and dated. Antelmo Sharma MD Pager [phone] * Harini Lance MD - 05/11/2023 6:06 AM EDT Images from the original note were not included. Cardiology Progress Note Patient info: Name: Purnima Thacker : 1955 PCP: Magdalena Acosta MD PCP phone number: [phone] Date of Admission: 05/08/2023 ( Hospital Day [...] care giver that requested your imaging first. : 05/08 [...] 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) Mild coronary artery disease by [facility] 11/09/2022 Hyperlipidemia, unspecified NICOLAS (obstructive sleep [...] PCP: Magdalena Acosta MD PCP phone number: [phone] Date of Admission: 05/08/2023 ( Hospital Day [...] 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) Mild coronary artery disease by [facility] 11/09/2022 Hyperlipidemia, unspecified NICOLAS (obstructive sleep [...] PCP: Magdalena Acosta MD PCP phone number: [phone] Date of Admission: 05/08/2023 ( Hospital Day [...] Gas) No results found for: PHART, PO2ART, WBR7JOP, BIX3YGG Microbiology: Microbiology Results (Last 30 days) No [...] 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) Mild coronary artery disease by [facility] 11/09/2022 Hyperlipidemia, unspecified NICOLAS (obstructive sleep [...] fraction I35.0 Mild coronary artery disease by [facility] 11/09/2022 I25.10 Heart failure with reduced ejection fraction due to heart valve disease I50.20, I38 Cardiogenic shock R57.0 S/P TAVR (transcatheter aortic valve replacement) Z95.2 Past Medical History: Diagnosis Date Anemia Past Surgical History: Procedure Laterality Date PRG CATH PLMT LEFT HEART CATH & ARTS W/INJ & ANGIO IMG S&I N/A 11/09/2022 CORONARY ANGIOGRAPHY; W [facility],POSSIBLE PCI (WRVU 5.6) performed by Mario Alberto Escobedo MD at [facility] CATH LABS PRO AORTOPLAS FOR SUPRAVALV STEN N/A 09/21/2016 @AORTOPLASTY FOR SUPRAVALVULAR STENOSIS (WRVU 29.33) performed by Alirio Hudson MD at [facility] MAIN OR PRO REPLACEMENT PROSTHETIC AORTIC VALVE OPEN W CARDIOPULMONARY BYPASS HOMOGRF/STENT N/A 09/21/2016 @REPLACE AORTIC VALVE, OPEN, W\CPB, W\PROSTHETIC VALVE (WRVU 41.32) performed by Alirio Hudson MD at [facility] MAIN OR Social History and Habits: Social [...] fraction I35.0 Mild coronary artery disease by [facility] 11/09/2022 I25.10 Heart failure with reduced ejection fraction due to heart valve disease I50.20, I38 Cardiogenic shock R57.0 S/P TAVR (transcatheter aortic valve replacement) Z95.2 Past Medical History: Diagnosis Date Anemia Past Surgical History: Procedure Laterality Date PRG CATH PLLA LEFT HEART CATH & ARTS W/INJ & ANGIO IMG S&I N/A 11/09/2022 CORONARY ANGIOGRAPHY; W [facility],POSSIBLE PCI (WRVU 5.6) performed by Mario Alberto Escobedo MD at [facility] CATH LABS PRO AORTOPLAS FOR SUPRAVALV STEN N/A 09/21/2016 @AORTOPLASTY FOR SUPRAVALVULAR STENOSIS (WRVU 29.33) performed by Alirio Hudson MD at [facility] MAIN OR PRO REPLACEMENT PROSTHETIC AORTIC VALVE OPEN W CARDIOPULMONARY BYPASS HOMOGRF/STENT N/A 09/21/2016 @REPLACE AORTIC VALVE, OPEN, W\CPB, W\PROSTHETIC VALVE (WRVU 41.32) performed by Alirio Hudson MD at [facility] MAIN OR Social History and Habits: Social [...] Hgb 10.5 CMP - Cr 1.1 BNP 61698 HsTrop 1358 Lactate 1.6 D-dimer 1183 Interval History Patient was admitted to [facility] due to concern on low [...] Klaudia Reid MD Internal Medicine PGY-1 Pager [phone], M1-S1 Service Associated attestation - Juan Luis Gonzalez MD - 05/08/2023 10:00 PM EDT Cardiology Attending Addendum Active Hospital Problems Diagnosis Symptomatic severe aortic stenosis with low ejection fraction Heart failure with reduced ejection fraction due to heart valve disease Mild coronary artery disease by [facility] 11/09/2022 Hyperlipidemia, unspecified History of aortic valve replacement Resolved Hospital Problems No resolved problems to display. I have interviewed and examined the patient, reviewed the available data, and have discussed my findings, assessment and plan with the patient and the team on admission to S2 service (from [facility] service) today. I agree with [...] PCP: Magdalena Acosta MD PCP phone number: [phone] Date of Admission: 05/08/2023 ( Hospital Day [...] Hgb 10.5 CMP - Cr 1.1 BNP 09639 HsTrop 1358 Lactate 1.6 D-dimer 1183 Vasoactive [...] Sal MD Internal Medicine, PGY-1 Cardiology [facility] #[id number] 05/08/23 12:06 PM Cardiology [...] to the planned procedure. Hand Hygiene: The vineyardist did perform hand hygiene prior to arterial [...] Successful arterial line placement. Crispin Timmons MD Net Manager Associated attestation - Onelia Schwartz MD [...] (flow was non-pulsatile) and appearance of blood. [place] catheter was placed and locked at 55 [...] information for follow-up [facility] [address] [place] [address] Cardiac Rehab, [facility] [address] [place] [address] [place] [address] [facility], [facility] [address] [place] [address] Transportation: family or friend will provide *Brother [...] Type: *No Product type* / Secondary Insurance: [employer] [place] Prescription Coverage: Yes This plan was formulated with input from patient, family (please identify family/friend involved ifapplicable) and team. All are in agreement with plan. Aliza Martino MSN-Ed, RN ACM white work cleaner Office of Care Management Pager #[phone] * Plan of Care - Favian Mckeon [...] Chaudhary RN - 05/21/2023 4:46 PM EDTSummary: [facility] referral OFFICE OF CARE MANAGEMENT [...] Type: *No Product type* / Secondary Insurance: [employer] [facility] Last Physical Therapy Recommendation: [...] describing our affiliations within the [facility] and educate about their right to choose where referrals are sent. provide a list of Home Health Agencies / Durable Medical Equipment vendors which serve their preferred geographic area. They have requested referrals to: [facility] [address] [place] [id number] [facility] @ [facility] [place] [facility] [place] Note routed to a Manager Assembly who will communicate referrals to facilities and provide any required information. Transportation: family or friend will provide *Brother Raymond on Tuesday 05/22 at 1000 Barriers to discharge: Does not have home 22/02 assist available until tomorrow Tuesday 05/22 Plan going forward: Discharge home into the 22/02 home care of brother Raymond with [facility] and [facility] PT/OT services on Tuesday 05/22 [...] Attending: All Staff: Staff Role Juanita Almaguer Grain Trimmer Laure Ricks PA Physician School Supervisor Magdalena Rodriguez gis geographer Nurse Consuelo Espinoza RN Radiology Nurse Post-operative [...] Type: *No Product type* / Secondary Insurance: [employer] [place] Last Physical Therapy Recommendation: [facility] facility, [...] Office of Care Management letter from the Physician General Internal Medicine pertaining to rehab referrals. provide a letter describing our affiliations within the [facility] and educate about their right to choose where referrals are sent. provide the CMS Star Quality Rating handout. review the different levels of rehab including SNF, swing, and acute. provide a list of facilities within their preferred geographic area. request that they provide at least three choices for referral. They have requested referrals to: [facility] [address] [place] [address] [facility] ([facility]) [address] [place] [address] (Accepts pts only after exhausting all other local SNF options) [facility] ([facility]) ([facility]) [address] [place] [address] PHONE: [phone] FAX: [phone] Simin Benavides [place] ([facility]) [facility]) [address] [place] [address] PHONE: [phone] FAX: [phone] Note routed to a Manager Assembly who will communicate referrals to facilities and [...] in her course. She ultimately underwent a izfzq-zn-pgnmk procedure on and tolerated it well (see operative details). [facility]ated on some pressors [...] 1423 05/12/23 1105 PHART 7.39 7.37 7.34* SYG3SCR 33* 36 42 PO2ART 101 102 73* KUN0RMK 19.5* 20.4 22.1 LACTATEVEN 1.5 1.8 2.8* UWX1OZB 40 40 40 PFRATIOART2 252 255 182 VBG (Venous Blood Gas) Recent Labs 05/12/23 1557 05/12/23 1423 05/12/23 1105 LACTATEVEN 1.5 1.8 2.8* Mixed Venous Sat Recent Labs 05/12/23 1425 05/12/23 0508 05/12/23 0321 R3FVPB2 59.9 30.7 32.7 LFT's: Recent Labs 05/14/23 0110 05/13/23 0115 05/12/23 0600 BILITOT 0.4 0.5 0.9 BILIDIR -- 0.3 -- ALBUMIN 3.6 3.0* 3.5 ALKPHOS 86 85 100 ALT 437* 903* 1,174* AST 319* 792* 1,435* No results found for: UPROTCREAT No results found for: TPROTEINPEP, ALBELECT No results found for: MICROALBUR, QGRO61RVW No results found for: HA1C Lab Results Component Value Date CALCIUM 8.5 05/14/2023 PHOS 4.7 (H) 05/08/2023 No results found for: 25OHVITD MICROBIOLOGY: ProcedureComponentValueUnitsDate/TimeUrine culture [[id number]]Collected: 05/11/231921Lab Status: Final resultSpecimen: Clean Catch UrineUpdated: [...] consulted for assessment if this patient needs EARTH BORING MACHINE OPERATOR. Atthis time, we can likely hold off on EARTH BORING MACHINE OPERATOR. Her volume status appears sufficient and her metabolic kanwal angements with mild acidosis is not too profound. Patient does not have significant uremic symptoms. We can hold off for today, but the patient is a high risk candidate for needing EARTH BORING MACHINE OPERATOR in future daysespecially if her Cr curve trends the direction it is for the next several days. S/p Jjiyu-wb-Kvtyv TF TAVR: Management per cardiology. On milrinone gtt. PLAN: - Please obtain following diagnostics: renal US, urinalysis, urine prot/Cr ratio, urine albumin/Cr ratio, CK, uric acid, serum osmol, daily VBGs - No acute indications for EARTH BORING MACHINE OPERATOR/dialysis. We will keep close eye on Cr trend, volume status, and metabolics to ensure patient still does not need EARTH BORING MACHINE OPERATOR as she ensues intrinsic renal recovery [...] M.H.A., M.A. PGY-V Nephrology-Hypertension Fellow Page # [phone] [facility] [address] 2nd floor, Automotive Sales Specialist [address] [place] [address] * Care Management - Mario Alberto Olmos [...] / Secondary Insurance: [facility] [place] Plan for discharge is: Home w/o [...] CV at 0945. Was intubated in the woodworking shop laborer due to agitation. Maintained bedrest for [...] Operative Note Patient Name: Purnima Thacker : [id number] MR#: [id number] Case Date: 05/12/2023 Surgeon: Surgeon(s) and Role: [...] procedure Note: Patient Name: Purnima Thacker : [id number] MR#: [id number] Case Date: 05/12/2023 Operators Surgeon: Surgeon(s) and [...] main with 4.0 x 30 mm Resolute [place] Drug Eluting Stent Perclose x1 + Angio-seal 8 Fr x1, RFA Manual pressure, LFA Manual pressure, LFV Endotracheal intubation (performed by cardiac anesthesia) Preliminary findings: Successful right transfemoral TAVR Pyxer-qp-Jxwmm with a 23 mm Lai 3 THV. [...] MD, M.Sc. Structural Heart Disease Fellow Pager :[phone] Antelmo Sharma MD Pager [phone] * Op Note - Alirio Hudson MD - 05/12/2023 7:37 AM EDT Preop Diagnosis: Severe aortic stenosis, symptomatic. Postop Diagnosis: Same. Procedure: Transfemoral TAVR procedure with 23mm valve. Surgeon: Alirio Hudson M.D. Information Technology Project Manager: Danny CULP Procedure: The patient was taken to the woodworking shop laborer. The patient had monitored anesthesia care. 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 [facility] [place] [address] [address] STRUCTURAL HEART DISEASE CONSULTATION NOTE PRIMARY CARE [...] who had been referred for possible TAVR oaapk-yx-lkxml evaluation. Her primary symptoms are of dyspnea [...] [facility]. 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 [...] ejection fraction Mild coronary artery disease by [facility] 11/09/2022 Heart failure with reduced ejection [...] lab ([facility] [place]) Result Value Ref [...] leads Confirmed by MD Harshil, Enrique Bell ([id number]) on 05/10/2023 8:11:46 AM Assessment and Plan: [...] Antelmo Sharma MD Structural Heart Disease Pager [phone] * Plan of Care - Sarahi Nice RN - 05/10/2023 3:55 AM EDTSumcaydeny: RN Note and Care Plan Sarahi Nice RN assumed care of pt at time of their arrival to room 362 from [facility]. Pt voices shortness of breath [...] surrogate would be surrogate decision maker per [place] surrogate decision making law. (Only good for 180 days) Any patient receiving care in [place] must abide by [place] law. The hierarchy for surrogate decision making [...] DME: none Home Address confirmed as: [address] [place] [phone] Social & Family Supports: All names listed [...] Type: *No Product type* / Secondary Insurance: [employer] [facility] [place] ONLY if patient has Medicare A&B - Does this patient have secondary insurance?: Yes ; Prescription Coverage: Yes Preferred Pharmacy: updated to [facility] Status: Patient is a : No Primary Care Provider confirmed: Magdalena Acosta MD [phone] Patient/Caregiver Goals of Treatment: Potential Needs for [...] of care planning. Alie Bradshaw RN, CM Pager-[phone] * Plan of Care - Emily Lucero [...] 11/02/2024 12:00 PM EDT [place] [address] 11/02/2024 1:00 PM EDT [place] [address] Magdalena Peralta MD [facility] [place] [address] 03/01/2025 4:15 PM EDT Office Visit Dermatology at [place] [address] [facility] [place] [address] Marek Bonilla MD [address], [address] [place] [address] Scheduled Referrals Name Type Priority Associated Diagnoses Orde r Schedule Referral to Cardiac Rehab Outpatient Referral Routine S/P TAVR (transcatheter aortic valve replacement) Ordered: 05/22/2023 Referral to [facility] Outpatient Referral Routine S/P TAVR (transcatheter [...] Heart Cath W/Inj L Ventriculography, Img S&I ([id number]) 05/12/2023 7:37 AM EDT Aortic valve stenosis, [...] EST) Pathologist [facility] EF 20 HEARTFe3 Medical SYSTEM Anatomical Region Laterality Modality Cardiac Other 07/08/2023 10:3 1 AM EST Narrative 07/08/2023 12:26 PM EST 1 [place] [address] ? Echocardiogram Report Name: PURNIMA THACKER ?Study Date: 07/08/2023 10:31 AMBP: 118/60 mmHg ? Patient Location: : 1955 ? Height: 155 cm ? Account: [id number] Age: 67 yrs ? Weight: 74 kg Gender: Female ?BSA: 1.7 m2 Ordering Physician: ALIRIO HUDSON Referring Physician: VINOD JUÁREZ Performed By: Felicia Norris RDCS Reason For Study: S/P TAVR Exam Location: [facility]. Interpretation Summary Left ventricular [...] no significant change (post-procedure). Procedure Limited - 67013. Doppler - 27504. Color Doppler - 46239. Satisfactory quality. This study is limited because [...] Note Lee Kincaid MD - 07/08/2023 [address] [place] [address] Echocardiogram Report Name: PURNIMA THACKER Study Date: 0:31 AMBP: 118/60 mmHg Patient Location: : 1955 Height: 155 cm Account: [id number] Age: 67 yrs Weight: 74 kg Gender: Female BSA: 1.7 m2 Ordering Physician: ALIRIO HUDSON Referring Physician: VINOD JUÁREZ Performed By: Felicia Norris RDCS Reason For Study: S/P TAVR Exam Location: [facility]. Interpretation Summary Left ventricular [...] is nosignificant change (post-procedure). Procedure Limited - 13612. Doppler - 11151. Color Doppler - 31377. Satisfactoryquality. This study is limited because of [...] EST) Glucose 93 65 - 199 mg/dL [facility] [...] CHEMISTRY ORDERABLE S [facility] [place] [address] * (ABNORMAL) Basic Metabolic Panel (non-fasting) (05/22/2023 [...] Lab Mara Maggie OSBORN CHEMISTRY ORDERABL ES [facility] [place] [address] * (ABNORMAL) Basic Metabolic Panel (non-fasting) (05/21/2023 5:06 AM EDT) Pathologist [facility] Glucose 87 65 - 199 mg/dL [facility] Comment:Diabetes: >=200 mg/d L plus symptoms Blood Urea Nitrogen 25(H) 8 - 18 mg/dL [facility] Creatinine 0.84 0.70 - 1.20 mg/dL [facility] Sodium 136 135 - 145 [...] Dioxide 26 22 - 31 mmol/L [facility] Anion Gap 8 5 - [...] Narrative Resulting Agency Comment Spec In Lab [facility] FISCAL ASSISTANT CHEMISTRY ORDERABL ES Performing Organization Address [facility] Co de Phone Number [facility] [place] [address] * Lavender Tube HOLD (05/20/2023 2:52 AM EDT) Lavender Hold Sample in lab. [facility] Blood Venous Draw / Unknown 05/20/2023 2:52 AM EDT 05/20/2023 3:04 AM EDT Mara Gray FISCAL ASSISTANT HEMATOLOGY ORDERAB LES Performing Organization Address [facility] Co de Phone Number [facility] [place] [address] * (ABNORMAL) Basic Metabolic Panel (non-fasting) (05/20/2023 2:52 AM EDT) Glucose 152 65 - 199 mg/dL [facility] [...] Narrative Resulting Agency Comment Spec In Lab [facility] FISCAL ASSISTANT CHEMISTRY ORDERABL ES Performing Organization Address [facility] Co de Phone Number [facility] [place] [address] * (ABNORMAL) Potassium (05/20/2023 2:52 AM EDT) [...] Narrative Resulting Agency Comment Spec In Lab [facility] FISCAL ASSISTANT CHEMISTRY ORDERABL ES Performing Organization Address City/[facility] Co de Phone Number [facility] [place] [address] * XR Chest PA & Lateral (Generic) [...] care giver that requested your imaging first. Alirio Hudson MD IMG DX ORDERABLES * (ABNORMAL) Basic Metabolic Panel (non-fasting) (05/19/2023 5:49 AM EDT) Glucose 93 65 - 199 mg/dL [facility] Comment:Diabetes: >=200 mg/d L plus symptoms Blood Urea Nitrogen 45(H) 8 - 18 mg/dL [facility] Creatinine 1.02 0.70 - 1.20 mg/dL [facility] Sodium 138 135 - 145 mmol/L [facility] Potassium 3.9 3.5 - 5.0 mmol/L [facility] Comment: Please note: ??Patients with WBC >100,000 may have falsely elevated Potassium levels. ??For accurate Potassium quantification in these patients send serum separator tube (gold top) for subsequent determinations. ??Contact the Clinical Chemistry Laboratory if there are any questions. Chloride 102 98 - 107 mmol/L [facility] Carbon Dioxide 26 22 - 31 mmol/L [facility] Anion Gap 10 5 - 15 mmol/L [facility] Calcium 9.7 8.5 - 10.5 mg/dL [facility] Est Glomerular Filtration Rate 60 >=60 mL/min/1. 73 m?? [facility] Comment: This patient's estimated GFR [...] Agency Comment Spec In Lab Mara Serrano FISCAL ASSISTANT [place] [address] * IR Chest Tube Placement Right (05/18/2023 [...] 18 mg/dL [facility] Comment:result rechecked-[facility] Creatinine 1.64(H) 0.70 - 1.20 mg/dL [facility] Comment:result rechecked-[facility] Sodium 137 135 - 145 mmol/L [facility] [...] Agency Comment Spec In Lab Mara Serrano FISCAL ASSISTANT CHEMISTRY ORDERABL ES [facility] [place] [address] * XR Chest PA & Lateral (Generic) [...] care giver that requested your imaging first. Alirio Hudson MD IMG DX ORDERABLES * (ABNORMAL) Comprehensive metabolic panel (non-fasting) (05/17/2023 4:35 AM EDT) Glucose 89 65 - 199 mg/dL [facility] Comment:Diabetes: >=200 mg/d L plus symptoms Blood Urea Nitrogen 97(H) 8 - 18 mg/dL [facility] Creatinine 2.97(H) 0.70 - 1.20 mg/dL [facility] Comment:result rechecked-OG Sodium 135 135 - 145 mmol/L [facility] [...] Protein, Total 6.5 6.1 - 8.0 g/dL [facility] Albumin 3.7 3.2 - 5.2 g/dL [facility] Aspartate Aminotransferase 58(H) 0 - 30 unit/L [facility] Alanine Aminotransferase 66(H) 0 - [...] CHEMISTRY ORDERABLE S [facility] [place] [address] * Potassium (05/16/2023 11:15 PM EDT) Potassium [...] MD CHEMISTRY ORDERABLE S Performing Organization Address City/[facility]/ZIP Co de Phone Number [facility] [place] [address] * Magnesium (05/16/2023 5:22 PM EDT) Magnesium 0.96 0.69 - 1.07 mmol/L [facility] Blood 05/16/2023 5:22 PM EDT 05/16/2023 5:27 PM EDT Narrative Resulting Agency Comment Spec In Lab Alirio Hudson MD CHEMISTRY ORDERABLE S Performing Organization Address [facility]/ZIP Co de Phone Number [facility] [place] [address] * (ABNORMAL) Basic Metabolic Panel (non-fasting) (05/16/2023 5:22 PM EDT) Glucose 106 65 - 199 mg/dL [facility] Comment:Diabetes: >=200 mg/d L plus symptoms Blood Urea Nitrogen 103(H) 8 - 18 mg/dL [facility] Creatinine 3.91(H) 0.70 - 1.20 mg/dL [facility] Comment:result rechecked-imm Sodium 132(L) 135 [...] Chloride 92(L) 98 - 107 mmol/L [facility] Carbon Dioxide 22 22 - 31 mmol/L [facility] Anion Gap 18(H) 5 - [...] CHEMISTRY ORDERABLE S [facility] [place] [address] * (ABNORMAL) Potassium (05/16/2023 11:43 AM EDT) [...] CHEMISTRY ORDERABLE S [facility] [place] [address] * (ABNORMAL) Ferritin (05/16/2023 4:41 AM EDT) [...] Ayoub MD CHEMISTRY ORDERABLES Performing Organization Address City/[facility]/ZIP Co de Phone Number [facility] [place] [address] * (ABNORMAL) PTH (05/16/2023 4:41 AM EDT) Parathyroid Hormone 120(H) 15 - 65 pg/mL [facility] Blood 05/16/2023 4:41 AM EDT 05/16/2023 4:54 AM EDT Narrative Resulting Agency Comment Spec In Lab Kristopher Ayoub MD CHEMISTRY ORDERABLES Performing Organization Address City/[facility]/ZIP Co de Phone Number [facility] [place] [address] * Vitamin D, 25-Hydroxy (05/16/2023 4:41 AM EDT) Vitamin D Total 25 OH 33 21 - 100 ng/mL [facility] Vit D Interp Sufficient [facility] Blood 05/16/2023 4:41 AM EDT 05/16/2023 4:54 AM EDT Narrative Resulting Agency Comment Spec In Lab Kristopher Ayoub MD CHEMISTRY ORDERABLES Performing Organization Address City/[facility]/ZIP Co de Phone Number [facility] [place] [address] * (ABNORMAL) Blood Gas Venous ([facility]) (05/16/2023 4:22 AM EDT) pH, Venous 7.41 7.32 - 7.42 [facility] PCO2, Venous 32(L) 41 - 51 mmHg [facility] PO2, Venous 73(H) 25 - 40 mmHg [facility] Bicarbonate, Venous 19.6 mmol/L [facility] Base Excess, Venous -5.1 mmol/L [facility] Hgb Blood Gas 9.7(L) 11.7 - 15.5 g/dL [facility] Oxyhemoglobin, Venous 92.8 % [facility] Carboxyhemoglob in, Venous 0.1 % [facility] Comment: Nonsmokers: 0.5-1.5% COHB Smokers: Variable, but usually less than 10% Toxic: 20-30% COHB Lethal: Greater than 60% COHB Methemoglobin, Venous 0.3 <=1.5 % [facility] Na Whole Blood 130(L) 135 - 145 mmol/L [facility] K Whole Blood 3.7 3.5 [...] Blood 95(L) 98 - 107 mmol/L [facility] Gluc Whole Bld 82 65 - 199 mg/dL [facility] Comment:Diabetes: >=200 mg/d L plus symptoms Lactate WB 1.1 0.5 - 2.2 mmol/L [facility] Blood Gas Source Venous [facility] Blood Venous Draw / Unknown 05/16/2023 4:22 AM EDT 05/16/2023 4:31 AM EDT Narrative Resulting Agency Comment Spec In Lab Bonita TOBAR CHEMISTRY ORDERABLES [facility] [place] [address] * (ABNORMAL) Differential, Automated (05/16/2023 4:20 AM EDT) Pathologist [facility] Neutrophil % 84.1 % [facility] Neutrophil Absolute 6.22(H) 1.70 - 6.10 x10(3)/mc L [facility] Lymph % 5.8 % [facility] Lymphocytes Abs 0.4(L) 0.9 - 3.2 x10(3)/mc L [facility] Monocyte % 8.8 % [facility] Monocyte Abs 0.6 0.3 - 0.9 x10(3)/ L [facility] Eos % 0.4 % [facility] Eosinophils Abs 0.0 0.0 - 0.4 x10(3)/ L [facility] Basophil % 0.0 % [facility] Baso Absolute 0.0 0.0 - [...] x10(3)/ L [facility] Blood 05/16/2023 4:20 AM EDT 05/16/2023 4:29 AM EDT Narrative Resulting Agency Comment Spec In Lab James Agustin MD HEMATOLOGY ORDER JODIE [facility] [place] [address] * (ABNORMAL) Hemogram (05/16/2023 4:20 AM EDT) Pathologist [facility] White Blood Cell 7.4 4.0 - 9.5 x10(3)/mc L [facility] Red Blood Cell 2.40(L) 4.00 - 5.21 x10(6)/[facility] Hemoglobin 7.8(L) 11.7 - 15.5 g/dL [facility] Hematocrit 22.5(L) 35.7 - 45.8 % [facility] Mean Cell Volume 93.8 82.6 - 94.4 fL [facility] Mean Cell Hemoglobin 32.5(H) 27.1 - 32.0 pg [facility] Mean Cell Hemoglobin Concentration 34.7 31.7 - 35.0 g/dL [facility] Platelet 120(L) 145 - 357 x10(3)/mc L [facility] RDW Standard Deviation 42.9 37.0 - 46.0 fL [facility] RDW coefficient of variation 12.9 11.5 - 14.1 % [facility] Mean Platelet Volume 11.3 7.6 - 12.[address] [facility] NRBC% auto 0.7 % [facility] NRBC Absolute 0.050(H) 0.000 - 0.000 x10(3)/mc L [facility] Blood 05/16/2023 4:20 AM EDT 05/16/2023 4:29 AM EDT Narrative Resulting Agency Comment Spec In Lab James Agustin MD HEMATOLOGY ORDER JODIE [facility] [place] [address] * (ABNORMAL) Basic Metabolic Panel (non-fasting) (05/16/2023 [...] MD CHEMISTRY ORDERABLE S Performing Organization Address City/[facility]/ZIP Co de Phone Number [facility] [place] [address] * (ABNORMAL) Iron and TIBC (05/16/2023 4:20 [...] Ayoub MD CHEMISTRY ORDERABLES Performing Organization Address City/[facility]/ZIP Co de Phone Number [facility] [place] [address] * (ABNORMAL) Basic Metabolic Panel (non-fasting) (05/15/2023 12:50 AM EDT) Glucose 101 65 - 199 mg/dL [facility] Comment:Diabetes: >=200 mg/d L plus symptoms Blood Urea Nitrogen 109(H) 8 - 18 mg/dL [facility] Creatinine 5.62(H) 0.70 - 1.20 mg/dL [facility] Comment:result rechecked-KS Sodium 131(L) 135 - 145 mmol/L [facility] Comment:result rechecked-KS Potassium 3.7 3.5 - 5.0 mmol/L [facility] Comment: result rechecked-KS Please note: [...] CHEMISTRY ORDERABLE S [facility] [place] [address] * (ABNORMAL) Hemogram (05/15/2023 12:50 AM EDT) White Blood Cell 9.1 4.0 - 9.5 x10(3)/mc L [facility] Red Blood Cell 2.19(L) 4.00 - 5.21 x10(6)/mc L [facility] Hemoglobin 7.2(L) 11.7 - 15.5 g/dL [facility] Hematocrit 20.6(L) 35.7 - 45.8 % [facility] Mean Cell Volume 94.1 82.6 - 94.4 fL [facility] Mean Cell Hemoglobin 32.9(H) 27.1 - 32.0 pg [facility] Mean Cell Hemoglobin Concentration 35.0 31.7 - 35.0 g/dL [facility] Platelet 109(L) 145 - 357 x10(3)/mc L [facility] RDW Standard Deviation 43.6 37.0 - 46.0 fL [facility] RDW coefficient of variation 12.9 11.5 - 14.1 % [facility] Mean Platelet Volume 10.4 7.6 - 12.[address] [facility] NRBC% auto 2.1 % [facility] NRBC Absolute 0.190(H) 0.000 - 0.000 x10(3)/ L [facility] Blood 05/15/2023 12:5 0 AM EDT 05/15/2023 12:52 AM EDT Narrative Resulting Agency Comment Spec In Lab Alirio Hudson MD HEMATOLOGY ORDERABL ES Performing Organization Address City/State/[place] Co de Phone Number [facility] [place] [address] * (ABNORMAL) BLOOD GAS 2 VENOUS (05/15/2023 [...] [facility] Oxyhemoglobin, Venous 58.1 % [facility] Carboxyhemoglob in, Venous 0.3 % [facility] Comment: Nonsmokers: 0.5-1.5% COHB Smokers: Variable, but usually less than 10% Toxic: 20-30% COHB Lethal: Greater than 60% COHB Methemoglobin, Venous 0.6 <=1.5 % [facility] Na Whole Blood 136 135 - 145 mmol/L [facility] K Whole Blood 3.7 3.5 [...] [facility] Flow, Mike 1.[address] [facility] Blood Gas Source Venous [facility] Blood 05/15/2023 12:4 9 AM EDT 05/15/2023 12:49 AM EDT Alirio Hudson MD POINT OF CARE TEST ORDERABLES Performing Organization Address City/State/[facility] de Phone Number [facility] [place] [address] * US Retroperitoneal Complete (05/14/2023 3:53 PM [...] who have questions, please contact the health home care giver that requested your imaging first. ? Hayden Robledo, Staff Physician Electronically Signed Final Report ?? 05/14/2023 04:39 pm Narrative 05/14/2023 4:39 PM EDT Renal ? (Signed Final 05/14/2023 04:39 pm) PATIENT INFO: ID #: ? [id number] ?: ??[birth year] (67 yrs)(F) Name: ? PURNIMA THACKER ?Visit Date: 05/14/2023 03:44 pm PERFORMED BY: Attending: ?Meena CULP, Hayden Stafford Resident: ? Nell CULP, Anand August Performed By: ? Consuelo Tello RDMS Referred By: ?ALIRIO HUDSON Location: ? [place] SERVICE(S) PROVIDED: URETRO - Retroperitoneal Complete - [id number] ? [id number] INDICATIONS: EVANS COMPARISON: CT: Abdomen/Pelvis 05/11/23 RIGHT [...] 05/14/2023 04:39 pm) PATIENT INFO: ID #: [id number] : 55 (67 yrs)(F) Name: PURNIMA THACKER Visit Date: 05/14/2023 03:44 pm PERFORMED BY: Attending: Hayden Robledo MD Resident: Anand Camejo MD Performed By: Consuelo Tello RDMS Referred By: ALIRIO HUDSON Location: [place] SERVICE(S) PROVIDED: URETRO - Retroperitoneal Complete - [id number] INDICATIONS: EVANS COMPARISON: CT: Abdomen/Pelvis 05/11/23 RIGHT [...] who have questions, please contact the health home care giver [...] MD CHEMISTRY ORDERABLE S Performing Organization Address City/[facility]/ZIP Co de Phone Number [facility] [place] [address] * (ABNORMAL) Uric acid (05/14/2023 3:17 PM EDT) Uric Acid 14.9(H) 2.5 - 6.5 mg/dL [facility] Blood 05/14/2023 3:17 PM EDT 05/14/2023 3:31 PM EDT Narrative Resulting Agency Comment Spec In Lab Alirio Hudson MD CHEMISTRY ORDERABLE S Performing Organization Address City/[facility]/ZIP Co de Phone Number [facility] [place] [address] * (ABNORMAL) Osmolality (05/14/2023 3:17 PM EDT) Osmolality 311(H) 275 - 295 mOsm/kg [facility] Blood 05/14/2023 3:17 PM EDT 05/14/2023 3:31 PM EDT Narrative Resulting Agency Comment Spec In Lab Alirio Hudson MD CHEMISTRY ORDERABLE S Performing Organization Address City/[facility]/[place] [address] * (ABNORMAL) Differential, Automated (05/14/2023 1:10 AM EDT) Neutrophil % 87.2 % [facility] Neutrophil Absolute 9.74(H) 1.70 - 6.10 x10(3)/mc L [facility] Lymph % 3.9 % [facility] Lymphocytes Abs 0.4(L) 0.9 - 3.2 x10(3)/mc L [facility] Monocyte % 7.9 % [facility] Monocyte Abs 0.9 0.3 - 0.9 x10(3)/mc L [facility] Eos % 0.0 % [facility] Eosinophils Abs 0.0 0.0 - 0.4 x10(3)/mc L [facility] Basophil % 0.1 % [facility] Baso Absolute 0.0 0.0 - [...] Absolute 0.10(H) 0.00 - 0.04 x10(3)/mc L [facility] Blood 05/14/2023 1:10 AM EDT 05/14/2023 1:24 AM EDT Narrative Resulting Agency Comment Spec In Lab Bonita TOBAR HEMATOLOGY ORDERABLE S Performing Organization Address City/[facility]/ZIP Co de Phone Number [facility] [place] [address] * (ABNORMAL) Hemogram (05/14/2023 1:10 AM EDT) White Blood Cell 11.2(H) 4.0 - 9.5 x10(3)/mc L [facility] Red Blood Cell 2.19(L) 4.00 - 5.21 x10(6)/mc L [facility] Hemoglobin 7.2(L) 11.7 - 15.5 g/dL [facility] Hematocrit 20.3(L) 35.7 - 45.8 % [facility] Mean Cell Volume 92.7 82.6 [...] of variation 12.5 11.5 - 14.1 % [facility] Mean Platelet Volume 10.4 7.6 - 12.[address] [facility] NRBC% auto 1.5 % [facility] NRBC Absolute 0.170(H) 0.000 - 0.000 x10(3)/mc L [facility] Blood 05/14/2023 1:10 AM EDT 05/14/2023 1:24 AM EDT Narrative Resulting Agency Comment Spec In Lab Bonita TOBAR HEMATOLOGY ORDERABLE S [facility] [place] [address] * (ABNORMAL) Comprehensive metabolic panel (non-fasting) (05/14/2023 [...] Aspartate Aminotransferase 319(H) 0 - 30 unit/L [facility] Alanine Aminotransferase 437(H) 0 - [...] CHEMISTRY ORDERABLE S [facility] [place] [address] * APTT (05/13/2023 10:15 AM EDT) Partial Thromboplastin Time 27 25 - [address] [facility] Comment: The PTT is NOT appropriate for heparin monitoring. Use the Anti-Xa level for heparin monitoring (HEP UFH) or LMWH monitoring (HEP LMW). A PTT less than 37 seconds generally indicates adequate hemostasis. Blood 05/13/2023 10:1 5 AM EDT 05/13/2023 10:46 AM EDT Narrative Resulting Agency Comment Spec In Lab Alirio Hudson MD HEMATOLOGY ORDERABL ES Performing Organization Address [facility] de Phone Number [facility] [place] [address] * (ABNORMAL) Prothrombin Time (05/13/2023 10:15 AM EDT) Prothrombin Time 14.6(H) 9.4 - 12.[address] [facility] International Normalization Ratio 1.3 [facility] Comment: An INR <2.0 indicates [...] MD HEMATOLOGY ORDERABL ES Performing Organization Address [facility]/[place] Co de Phone Number [facility] [place] [address] * EKG 12 Lead (05/13/2023 9:22 AM EDT) Ventricular rate 92 BPM MUSE SYSTEM Atrial Rate 92 BPM MUSE SYSTEM P-R Interval 140 ms MUSE SYSTEM QRS Duration 104 ms MUSE SYSTEM Q-T Interval 384 ms MUSE SYSTEM QTC Calculated (Bezet) 474 ms MUSE SYSTEM Calculated P [place] 33 degrees MUSE SYSTEM Calculated R [place] 41 degrees MUSE SYSTEM Calculated T [place] -35 degrees MUSE SYSTEM INTERPRETATION Sinus rhythm with frequent Premature ventricular complexes Septal infarct , age undetermined ST & T wave abnormality, consider lateral ischemia Abnormal ECG When compared with ECG of 12-MAY-2023 10:10, Premature ventricular complexes are now Present I personally reviewed the tracing and edited the fellows interpretation Confirmed by fellow MD Anitha, [email or web address] ([id number]) on 05/13/2023 3:25:30 PM Confirmed by Maxx Best ([id number]) on 05/13/2023 8:30:56 PM MUSE SYSTEM 05/13/2023 9:22 AM EDT 05/13/2023 8:30 PM EDT Alirio Hudson MD ECG ORDERABLES MUSE SYSTEM * (ABNORMAL) Differential, Automated (05/13/2023 1:15 AM EDT) Neutrophil % 88.1 % [facility] Neutrophil Absolute 7.62(H) 1.70 - 6.10 x10(3)/mc L [facility] Lymph % 3.1 % [facility] Lymphocytes Abs 0.3(L) 0.9 - 3.2 x10(3)/mc L [facility] Monocyte % 7.9 % [facility] Monocyte Abs 0.7 0.3 - 0.9 x10(3)/mc L [facility] Eos % 0.0 % [facility] Eosinophils Abs 0.0 0.0 - 0.4 x10(3)/mc L [facility] Basophil % 0.1 % [facility] Baso Absolute 0.0 0.0 - [...] HEMATOLOGY ORDERABLE S [facility] [place] [address] * (ABNORMAL) Hemogram (05/13/2023 1:15 AM EDT) White Blood Cell 8.6 4.0 - 9.5 x10(3)/mc L [facility] Red Blood Cell 2.37(L) 4.00 - 5.21 x10(6)/mc L [facility] Hemoglobin 7.8(L) 11.7 - 15.5 g/dL [facility] Hematocrit 22.2(L) 35.7 - 45.8 % [facility] Mean Cell Volume 93.7 82.6 - 94.4 fL [facility] Mean Cell Hemoglobin 32.9(H) 27.1 - 32.0 pg [facility] Mean Cell Hemoglobin Concentration 35.1(H) 31.7 - 35.0 g/dL [facility] Platelet 130(L) 145 - 357 x10(3)/mc L [facility] RDW Standard Deviation 41.7 37.0 - 46.0 fL [facility] RDW coefficient of variation 12.5 11.5 - 14.1 % [facility] Mean Platelet Volume 10.2 7.6 - 12.9 fL [facility] NRBC% auto 0.5 % [facility] NRBC Absolute 0.040(H) 0.000 - 0.000 x10(3)/mc L [facility] Blood 05/13/2023 1:15 AM EDT 05/13/2023 1:29 AM EDT Narrative Resulting Agency Comment Spec In Lab Lorri TOBAR HEMATOLOGY ORDERABLE S Performing Organization Address City/[facility]/ZIP Co de Phone Number [facility] [place] [address] * (ABNORMAL) Hepatic Function Panel (05/13/2023 1:15 AM EDT) Protein, Total 5.5(L) 6.1 - 8.0 g/dL [facility] Albumin 3.0(L) 3.2 - 5.2 g/dL [facility] Aspartate Aminotransferase 792(H) 0 - 30 unit/L [facility] Alanine Aminotransferase 903(H) 0 - [...] CHEMISTRY ORDERABLE S [facility] [place] [address] * (ABNORMAL) Basic Metabolic Panel (non-fasting) (05/13/2023 1:15 AM EDT) Pathologist [facility] Glucose 107 65 - 199 mg/dL [facility] [...] CHEMISTRY ORDERABLE S [facility] [place] [address] * (ABNORMAL) BLOOD GAS 2 ARTERIAL (05/12/2023 [...] Blood 96(L) 98 - 107 mmol/L [facility] Gluc Whole Bld 178 65 - 199 mg/dL [facility] Comment:Diabetes: >=200 mg/d L plus symptoms. Lactate WB 1.5 0.5 - 2.2 mmol/L [facility] FIO2 Art 40 % [facility] PF Ratio Art [address] [facility] Blood 05/12/2023 3:57 PM EDT 05/12/2023 3:57 PM EDT Alirio Hudson MD POINT OF CARE TEST ORDERABLES Performing Organization Address [facility]/[place] Co de Phone Number [facility] [place] [address] * (ABNORMAL) Coox2 (05/12/2023 2:25 PM EDT) pO2, Coox 37 mmHg [facility] Hgb Blood Gas 9.5(L) 11.7 - 15.5 g/dL [facility] Oxyhemoglobin, Coox 59.9 % [facility] Carboxyhemoglo bin, Coox 0.3 % [facility] Comment: Nonsmokers: 0.5-1.5% COHB Smokers: Variable, but usually less than 10% Toxic: 20-30% COHB Lethal: Greater than 60% COHB Methemoglobin, Coox 0.7 <=1.5 % [facility] Source Coox Mixed Venous [facility] Blood 05/12/2023 2:25 PM EDT 05/12/2023 2:25 PM EDT Alirio Hudson MD POINT OF CARE TEST ORDERABLES Performing Organization Address [facility]/[place] Co de Phone Number [facility] [place] [address] * (ABNORMAL) BLOOD GAS 2 ARTERIAL (05/12/2023 [...] [facility] K Whole Blood 3.7 3.5 [...] - 2.2 mmol/L [facility] FIO2 Art 40 % [facility] PF Ratio Art 255 [facility] Blood 05/12/2023 2:23 PM EDT 05/12/2023 2:23 PM EDT Alirio Hudson MD POINT OF CARE TEST ORDERABLES [facility] [place] [address] * (ABNORMAL) Troponin (05/12/2023 2:05 PM EDT) [...] value can be found in the [facility] Test Catalog Troponin - [facility] Test Catalog Reference: Fourth [place] Definition of Myocardial Infarction. Journal of the [place] [employer] 2018;72:3732-4454 Blood 05/12/2023 2:05 PM EDT 05/12/2023 2:14 PM EDT Narrative Resulting Agency Comment Spec In Lab Alirio Hudson MD CHEMISTRY ORDERABLE S [facility] [place] [address] * (ABNORMAL) Hemoglobin (05/12/2023 2:05 PM EDT) Hemoglobin 8.5(L) 11.7 - 15.5 g/dL [facility] Blood 05/12/2023 2:05 PM EDT 05/12/2023 2:14 PM EDT Narrative Resulting Agency Comment Spec In Lab Alirio Hudson MD HEMATOLOGY ORDERABL ES Performing Organization Address [facility] Co de Phone Number [facility] [place] [address] * Potassium (05/12/2023 2:05 PM EDT) Potassium [...] CHEMISTRY ORDERABLE S Performing Organization Address [facility] Co de Phone Number [facility] [place] [address] * (ABNORMAL) BLOOD GAS 2 ARTERIAL (05/12/2023 11:05 AM EDT) pH, Arterial 7.34(L) 7.35 - 7.45 [facility] PCO2, Arterial 42 35 - 45 mmHg [facility] PO2, Arterial 73(L) 85 - [address] [facility] Bicarbonate, Arterial 22.1 20.0 - 26.0 mmol/L [facility] Base Excess, Arterial -3.6(L) -3.0 - 3.0 mmol/L [facility] Hgb Blood Gas 9.3(L) 11.7 - 15.5 g/dL [facility] Oxyhemoglobin, Arterial 89.3(L) 94.0 - 97.0 % [facility] Carboxyhemoglob in, Arterial 0.2 % [facility] Comment: Nonsmokers: 0.5-1.5% COHB Smokers: Variable, but usually less than 10% Toxic: 20-30% COHB Lethal: Greater than 60% COHB Methemoglobin, Arterial 0.9 <=1.5 % [facility] Na Whole Blood 131(L) 135 - 145 mmol/L [facility] K Whole Blood 3.8 3.5 [...] Blood 96(L) 98 - 107 mmol/L [facility] Gluc Whole Bld 152 65 - 199 mg/dL [facility] Comment:Diabetes: >=200 mg/d L plus symptoms. Lactate WB 2.8(H) 0.5 - 2.2 mmol/L [facility] FIO2 Art 40 % [facility] [facility] PF Ratio Art 182 [facility] Blood 05/12/2023 11:0 5 AM EDT 05/12/2023 11:05 AM EDT Alirio Hudson MD POINT OF CARE TEST ORDERABLES Performing Organization Address City/State/[place] Co de Phone Number [facility] [place] [address] * (ABNORMAL) BLOOD GAS 2 ARTERIAL (05/12/2023 10:14 AM EDT) pH, Arterial 7.18(Criti gabrielle) 7.35 - 7.45 [facility] Comment:Noted by panel instrument repairer. PCO2, [...] COHB Methemoglobin, Arterial 0.9 <=1.5 % [facility] Na Whole Blood 129(L) 135 - 145 mmol/L [facility] K Whole Blood 3.6 3.5 - 5.0 mmol/L [facility] Comment: Please note: Patients with WBC >100,000 may have falsely elevated Potassium levels. Contact the Clinical Chemistry Laboratory if there are any questions. ICa Whole Blood 1.10(L) 1.15 - 1.33 mmol/L [facility] Comment: Note: ??Total bilirubin higher than 20 mg/dL may lead to falsely low ionized calcium. CL Whole Blood 97(L) 98 - 107 mmol/L [facility] Gluc Whole Bld 161 65 - 199 mg/dL [facility] Comment:Diabetes: >=200 mg/d L plus symptoms. Lactate WB 3.3(H) 0.5 - 2.2 mmol/L [facility] FIO2 Art 100 % [facility] PF Ratio Art 186 [facility] Blood 05/12/2023 10:1 4 AM EDT 05/12/2023 10:14 AM EDT Alirio Hudson MD POINT OF CARE TEST ORDERABLES Performing Organization Address City/State/[place] Co de Phone Number [facility] [place] [address] * EKG 12 Lead (05/12/2023 10:10 AM EDT) Ventricular rate 116 BPM MUSE SYSTEM Atrial Rate 116 BPM MUSE SYSTEM P-R Interval 158 ms MUSE SYSTEM QRS Duration 114 ms MUSE SYSTEM Q-T Interval 348 ms MUSE SYSTEM QTC Calculated (Bezet) 483 ms MUSE SYSTEM Calculated P [place] 37 degrees MUSE SYSTEM Calculated R [place] 31 degrees MUSE SYSTEM Calculated T [place] -138 degrees MUSE SYSTEM INTERPRETATION Sinus tachycardia with intermittent aberrant ventricular conduction Possible Left atrial enlargement Incomplete left bundle block Left ventricular hypertrophy with repolarization abnormality ( Sokolow-Orozco , Griffin product ) ST & T wave abnormality in Inferolateral leads Abnormal ECG When compared with ECG of 10-MAY-2023 13:16, ST & T wave abnormality is more pronounced in inferolateral leads I personally reviewed the tracing and edited the fellows interpretation Confirmed by fellow MD Anuja, Jim ([id number]) on 05/12/2023 1:04:20 PM Confirmed by MD Villareal Danette ([id number]) on 05/12/2023 9:28:34 PM MUSE SYSTEM 05/12/2023 [...] course of the esophagus and outside the pmtis-jk-lzdu. Interval retraction of right IJ approach pulmonary [...] expected course ofthe esophagus and outside the webwk-jm-ooyt. Interval retraction of right IJ approach pulmonary [...] care giver that requested your imaging first. Alirio Hudson [...] 1955 ? Height: 154 cm ? Account: [id number] Age: 67 yrs ? Weight: 75 kg Gender: Female ?BSA: 1.7 m2 Ordering Physician: RADHA HOLLINS Referring Physician: RADHA HOLLINS Performed By: Dilma Bee RDCS Reason For Study: Guidance for TAVR procedure Exam Location: [facility]. Interpretation Summary PRE TAVR: [...] mL/m2. POST TAVR: Normal function of the kruts-hv-nrtxp prosthesis. See below for hemodynamic parameters. Slight improvement in left and right ventricular systolic function. LVEF now 20-25%. No pericardial effusion. See report for additional findings. Procedure Limited - 47349. Doppler - 91343. Color Doppler - 52153. Left Ventricle Left ventricle is of normal [...] Date: 307:33 AMBP: 96/63 mmHg Patient Location: [address] : 1955 Height: 154 cm Account: [id number] Age: 67 yrs Weight: 75 kg Gender: Female BSA: 1.7 m2 Ordering Physician: RADHA HOLLINS Referring Physician: RADHA HOLLINS Performed By: Dilma Bee RDCS Reason For Study: Guidance for TAVR procedure Exam Location: [facility]. Interpretation Summary PRE TAVR: [...] 28mL/m2. POST TAVR: Normal function of the cswxk-ja-zfurx prosthesis. See belowfor hemodynamic parameters. Slight improvement in left and right ventricularsystolic function. LVEF now 20-25%. No pericardial effusion. See report for additional findings. Procedure Limited - 88407. Doppler - 47160. Color Doppler - 36972. Left Ventricle Left ventricle is of normal [...] Modality Other Narrative 05/12/2023 2:37 PM EDT ?[facility] ? Cardiac Catheterization/Intervention Report ? Patient Name: Kirstie, Purnima M. ? Procedure Date: 05/12/2023 ? A #: [id number] ? Primary Physician: Antelmo Sharma ? Case #: [id number] ? File Name: [id number] ? Catheterization Order Number: [id number] ? [facility] ? Final Report [place], [place] ? Patient Name: ? Purnima Thacker ? ID#: ?[id number] ? : ?1955 ? Procedure Date: ? May 12, 2023 ? Case #: ? [id number] ? Room: ? 6 ? Case Physicians: ?Antelmo Sharma M.D. ?Start: ?08:03 ?Alirio Hudson M.D. ?Admission: ??05/08/2023 ?Lynda Mcgowan M.D. ? Discharge: ??05/22/2023 ?Fellow: ? Kristied Adair Tejeda ? Referring Physician: ??Mario Alberto Chin M.D. ? Procedures: ?* Coronary Angiography ?* Left Heart Catheterization ?* Coronary Stent Insertion ?* Transcatheter Aortic Valve Replacement ?* Vascular Closure Device Deployment ?* Temporary Pacemaker Insertion In Oncology Rep ?* Endotracheal Intubation By Non-Cath Physician [...] to Procedure: ? Aspirin, Angiotensin II Receptor Aplak, Calcium Channel Blocking ? Agent and Statin. [...] ??A premounted 4.00 x 30 mm Nils Calaveras (MINNA) was ? deployed with a maximum [...] calculated STS risk score was 30.1%. A zyfnc-xy-pylfk ?procedure was performed on the pre-existing bioprosthetic stented ?prosthesis. The priority of the homel-mp-kqbju procedure was Elective. ?The procedure was performed [...] Lai 3 Ultra RESILIA 23 mm THV (s/d=[id number]) transcatheter ?valve was inserted using standard technique. 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 ?Recommended anti-platelet/anti-thrombotic regimen: ?Continue aspirin 81 [...] regimen. ? Comments: ?Successful right transfemoral TAVR Rwbjc-fj-Ugrdi with a 23 mm Lai 3 ?THV. 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 Dr. Alirio Hudson M.D. 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 Dr. Lynda Mcgowan M.D. performed the ABG, ?anesthesia and intubation-non cath physician. ? Antelmo Sharma M.D. ? Electronically Signed by: Antelmo Sharma M.D. ? Report Finalized: 05/12/2023 ??14:31 ? Report Last Ammended: 07/01/2023 ??11:30 ? Procedure Note Antelmo Sharma MD - 07/01/2023 [facility] Cardiac Catheterization/Intervention Report Patient Name: Cuauhtemoc Thackerise Arabella Procedure Date: 05/12/2023 A #: [id number] Primary Physician: Antelmo Sharma Case #: [id number] File Name: [id number] Catheterization Order Number: [id number] [facility] FinalReport [place], [place] Patient Name: Purnima Thacker ID#:[id number] :1955 Procedure Date: May 12, 2023 Case #: [id number] Room: 6 Case Physicians: Antelmo Sharma M.D. Start: 08:03 Alirio Hudson M.D. Admission:05/08/2023 Lynda Mcgowan M.D. Discharge:05/22/2023 Fellow: Rebekah Tejeda M.D. Referring Physician: Mario Alberto Chin M.D. Procedures: * Coronary Angiography * Left Heart Catheterization * Coronary Stent Insertion * Transcatheter Aortic Valve Replacement * Vascular Closure Device Deployment * Temporary Pacemaker Insertion In Oncology Rep * Endotracheal Intubation By Non-Cath Physician [...] A premounted 4.00 x 30 mm Nils Calaveras (MINNA) was deployed with a maximum inflation [...] calculated STS risk score was 30.1%. A eonks-vf-mgods procedure was performed on the pre-existing bioprosthetic stented prosthesis. The priority of the rxneg-dg-aalov procedure wasElective. The procedure was performed under Moderate sedation performed byLynda Mcgowan M.D. (see anesthesia report for additional details). Alirio Hudson M.D. participated in the case (see Cardiac Surgery reportfor additional details). The TAVR sheath was a 14 Fr Corona eSheath Introducer and theaccess site was femoral. Rapid ventricular pacing was performed. An Corona Lai 3 Ultra RESILIA 23 mm THV (s/g=[id number])transcatheter valve was inserted using standard technique. The [...] prior to nor was it given inthe woodworking shop laborer. Recommended anti-platelet/anti-thrombotic regimen: Continue aspirin 81 [...] this regimen. Comments: Successful right transfemoral TAVR Nlrll-pj-Hnths with a 23 mmSapien 3 THV. We [...] insertion-coronary, access site angiography, temporary pacemaker in woodworking shop laborer, intubation-non cath physician,vascular closure device, transthoracic echo and TAVR. Dr. Alirio Hudson M.D. performed the left heart catheterization, access site angiography, temporary pacemaker in woodworking shop laborer, vascular closure device,transthoracic echo , TAVR [...] POC 7.20(Crit ical) 7.35 - 7.45 [facility] Comment:Critical value OK, C C Lab. pCO2, POC 42 35 - 45 mmHg [facility] pO2, POC 260(H) 85 - 104 mmHg [facility] Base Excess, POC -11.0(L) -3.0 - 3.0 mmol/L [facility] Bicarbonate, POC 16.7(L) 20.0 - 26.0 mmol/L [facility] Sodium, POC 129(L) 135 - 145 mmol/L [facility] POC Potassium 3.8 3.5 - 5.0 mmol/L [facility] Ionized Calcium, POC 1.12(L) 1.15 - 1.33 mmol/L [facility] POC Hematocrit 23.0(L) 34.0 - 45.0 % [facility] POC Calc Hgb 7.8(L) 11.2 - 15.7 g/dL [facility] Comment:The calculation of h emoglobin from hematocrit assumes a normal MCHC. POC Bgas Loc CC Lab [facility] Blood 05/12/2023 8:50 AM EDT 05/13/2023 12:00 PM EDT Alirio Hudson MD CHEMISTRY ORDERABLE S [facility] [place] [address] * (ABNORMAL) Point of Care Blood Gas Historical (05/12/2023 8:10 AM EDT) pH, POC 7.27(Crit ical) 7.35 - 7.45 [facility] Comment:Critical value OK, C C Lab. pCO2, POC 37 35 - [address] [facility] pO2, POC 29(Critic al) 85 - 104 mmHg [facility] Comment:Critical value OK, C C Lab. Base Excess, POC -10.0(L) -3.0 - 3.0 mmol/L [facility] Bicarbonate, POC 16.7(L) 20.0 - 26.0 mmol/L [facility] Sodium, POC 123(L) 135 - 145 mmol/L [facility] POC Potassium 4.0 3.5 - 5.0 mmol/L [facility] Ionized Calcium, POC 1.12(L) 1.15 - 1.33 mmol/L [facility] POC Hematocrit 27.0(L) 34.0 - 45.0 % [facility] POC Calc Hgb 9.2(L) 11.2 - 15.7 g/dL [facility] Comment:The calculation of h emoglobin from hematocrit assumes a normal MCHC. POC Bgas Loc CC Lab [facility] Blood 05/12/2023 8:10 AM EDT 05/13/2023 12:00 PM EDT Alirio Hudson MD CHEMISTRY ORDERABLE S [facility] [place] [address] * (ABNORMAL) Lactate, whole blood, send to lab ([facility] [place] (05/12/2023 7:00 AM EDT) Lactate WB 2.4(H) 0.5 - 2.2 mmol/L [facility] Blood 05/12/2023 7:00 AM EDT 05/12/2023 7:09 AM EDT Narrative Resulting Agency Comment Spec In Lab Radha Hollins MD CHEMISTRY ORDERABL ES Performing Organization Address City/[facility]/ZIP Co de Phone Number [facility] [place] [address] * (ABNORMAL) Comprehensive metabolic panel (non-fasting) (05/12/2023 [...] Aspartate Aminotransferase 1,435(H) 0 - 30 unit/L [facility] Alanine Aminotransferase 1,174(H) 0 - [...] CHEMISTRY ORDERABL ES [facility] [place] [address] * (ABNORMAL) Coox2 (05/12/2023 5:08 AM EDT) pO2, Coox [address] [facility] Hgb Blood Gas 10.4(L) 11.7 - 15.5 g/dL [facility] Oxyhemoglobin, Coox 30.7 % [facility] Carboxyhemoglo bin, Coox 0.3 % [facility] Comment: Nonsmokers: 0.5-1.5% COHB Smokers: Variable, but usually less than 10% Toxic: 20-30% COHB Lethal: Greater than 60% COHB Methemoglobin, Coox 0.8 <=1.5 % [facility] Source Coox Mixed Venous [facility] Blood 05/12/2023 5:08 AM EDT 05/12/2023 5:08 AM EDT Radha Hollins MD POINT OF CARE TEST ORDERABLES Performing Organization Address [facility]/[place] Co de Phone Number [facility] [place] [address] * (ABNORMAL) Coox2 (05/12/2023 3:21 AM EDT) pO2, Coox [address] [facility] Hgb Blood Gas 10.8(L) 11.7 - 15.5 g/dL [facility] Oxyhemoglobin, Coox 32.7 % [facility] Carboxyhemoglo bin, Coox 0.3 % [facility] Comment: Nonsmokers: 0.5-1.5% COHB Smokers: Variable, but usually less than 10% Toxic: 20-30% COHB Lethal: Greater than 60% COHB Methemoglobin, Coox 0.7 <=1.5 % [facility] Source Coox Mixed Venous [facility] Blood 05/12/2023 3:21 AM EDT 05/12/2023 3:21 AM EDT Radha Hollins MD POINT OF CARE TEST ORDERABLES Performing Organization Address [facility]/[place] Co de Phone Number [facility] [place] [address] * (ABNORMAL) BLOOD GAS 2 ARTERIAL (05/12/2023 [...] COHB Methemoglobin, Arterial 0.7 <=1.5 % [facility] Na Whole Blood 131(L) 135 - 145 mmol/L [facility] K Whole Blood 4.2 3.5 [...] Whole Blood 100 98 - 107 mmol/L [facility] Gluc Whole Bld 160 65 - 199 mg/dL [facility] Comment:Diabetes: >=200 mg/d L plus symptoms. Lactate WB 2.7(H) 0.5 - 2.2 mmol/L [facility] Flow Art 5.0 LPM [facility] Blood 05/12/2023 3:18 AM EDT 05/12/2023 3:18 AM EDT Radha Hollins MD POINT OF CARE TEST ORDERABLES Performing Organization Address City/State/[place] Co de Phone Number [facility] [place] [address] * (ABNORMAL) Coox2 (05/12/2023 1:14 AM EDT) pO2, Coox 28 mmHg [facility] Hgb Blood Gas 10.9(L) 11.7 - 15.5 g/dL [facility] Oxyhemoglobin, Coox 37.3 % [facility] Carboxyhemoglo bin, Coox 0.3 % [facility] Comment: Nonsmokers: 0.5-1.5% COHB Smokers: Variable, but usually less than 10% Toxic: 20-30% COHB Lethal: Greater than 60% COHB Methemoglobin, Coox 0.5 <=1.5 % [facility] Source Coox Mixed Venous [facility] Blood 05/12/2023 1:14 AM EDT 05/12/2023 1:14 AM EDT Radha Hollins MD POINT OF CARE TEST ORDERABLES [facility] [place] [address] * (ABNORMAL) BLOOD GAS 2 ARTERIAL (05/12/2023 1:06 AM EDT) pH, Arterial 7.34(L) 7.35 - 7.45 [facility] PCO2, Arterial 30(L) 35 - 45 mmHg [facility] PO2, Arterial 81(L) 85 - 104 mmHg [facility] Bicarbonate, Arterial 15.7(L) 20.0 - 26.0 mmol/L [facility] Base Excess, Arterial -10.1(L) -3.0 - 3.0 mmol/L [facility] Hgb Blood Gas 11.0(L) 11.7 - 15.5 g/dL [facility] Oxyhemoglobin, Arterial 92.3(L) 94.0 - 97.0 % [facility] Carboxyhemoglob in, Arterial 0.2 % [facility] Comment: Nonsmokers: 0.5-1.5% COHB Smokers: Variable, but usually less than 10% Toxic: 20-30% COHB Lethal: Greater than 60% COHB Methemoglobin, Arterial 0.6 <=1.5 % [facility] Na Whole Blood 131(L) 135 - 145 mmol/L [facility] K Whole Blood 4.2 3.5 [...] Whole Bld 132 65 - 199 mg/dL [facility] Comment:Diabetes: >=200 mg/d L plus symptoms. Lactate WB 2.7(H) 0.5 - 2.2 mmol/L [facility] Flow Art 5.0 LPM [facility] Blood 05/12/2023 1:06 AM EDT 05/12/2023 1:06 AM EDT Radha Hollins MD POINT OF CARE TEST ORDERABLES [facility] [place] [address] * (ABNORMAL) Differential, Automated (05/12/2023 1:05 AM EDT) Neutrophil % 83.3 % [facility] Neutrophil Absolute 7.49(H) 1.70 - 6.10 x10(3)/mc L [facility] Lymph % 7.1 % [facility] Lymphocytes Abs 0.6(L) 0.9 - 3.2 x10(3)/mc L [facility] Monocyte % 8.9 % [facility] Monocyte Abs 0.8 0.3 - 0.9 x10(3)/mc L [facility] Eos % 0.0 % [facility] Eosinophils Abs 0.0 0.0 - 0.4 x10(3)/mc L [facility] Basophil % 0.1 % [facility] Baso Absolute 0.0 0.0 - [...] Absolute 0.05(H) 0.00 - 0.04 x10(3)/mc L [facility] Blood 05/12/2023 1:05 AM EDT 05/12/2023 1:15 AM EDT Narrative Resulting Agency Comment Spec In Lab Gianni Fletcher MD HEMATOLOGY ORDERABLE S [facility] [place] [address] * (ABNORMAL) Hemogram (05/12/2023 1:05 AM EDT) White Blood Cell 9.0 4.0 - 9.5 x10(3)/mc L [facility] Red Blood Cell 3.01(L) 4.00 - 5.21 x10(6)/mc L [facility] Hemoglobin 9.8(L) 11.7 - 15.5 g/dL [facility] Hematocrit 28.7(L) 35.7 - 45.8 % [facility] Mean Cell Volume 95.3(H) 82.6 [...] Volume 10.3 7.6 - 12.[address] [facility] NRBC% auto 0.0 % [facility] NRBC Absolute 0.000 0.000 - 0.000 x10(3)/mc L [facility] Blood 05/12/2023 1:05 AM EDT 05/12/2023 1:15 AM EDT Narrative Resulting Agency Comment Spec In Lab Gianni Fletcher MD HEMATOLOGY ORDERABLE S [facility] [place] [address] * (ABNORMAL) Comprehensive metabolic panel (non-fasting) (05/12/2023 [...] ORDERABL ES [facility] [place] [address] * XR Chest One View (05/12/2023 1:00 [...] AM EDT) pO2, Coox [address] [facility] Hgb Blood Gas 10.9(L) 11.7 - 15.5 g/dL [facility] Oxyhemoglobin, Coox 25.1 % [facility] Carboxyhemoglo bin, Coox 0.3 % [facility] Comment: Nonsmokers: 0.5-1.5% COHB Smokers: Variable, but usually less than 10% Toxic: 20-30% COHB Lethal: Greater than 60% COHB Methemoglobin, Coox 1.4 <=1.5 % [facility] Source Coox Mixed Venous [facility] Blood 05/12/2023 12:3 0 AM EDT 05/12/2023 12:30 AM EDT Radha Hollins MD POINT OF CARE TEST ORDERABLES [facility] [place] [address] * XR Chest One View (05/11/2023 11:45 [...] lab ([facility] [place] (05/11/2023 7:40 PM EDT) Lactate WB 4.8(Critic al) 0.5 - 2.2 mmol/L [facility] Comment:Called by: [facility], Read back by: Magdalena Baires, Date/Time:05/11/23 19:54. Blood 05/11/2023 7:40 PM EDT 05/11/2023 7:49 PM EDT Narrative Resulting Agency Comment Spec In Lab Radha Hollins MD CHEMISTRY ORDERABL ES Performing Organization Address [facility]/[place] Co de Phone Number [facility] [place] [address] * Urine culture (05/11/2023 7:22 PM EDT) [...] - GENE RAL ORDERABLES Performing Organization Address [facility] de Phone Number [facility] [place] [address] * (ABNORMAL) Urinalysis Microscopic Exam (05/11/2023 7:22 [...] Eusebio LEMAN URINE ORDERABLES Performing Organization Address [facility]/[place] Co de Phone Number [facility] [place] [address] * (ABNORMAL) Urinalysis with reflex Culture (05/11/2023 [...] Cloudy(A) Clear [facility] Specific Arnold Urine Automated >=1.030(A) 1.005 - 1.030 [facility] Color, Urine Dipstick Yellow Yellow [facility] Reflex to Culture Yes [facility] Clean Catch Urine 05/11/2023 7:22 PM EDT 05/11/2023 7:31 PM EDT Narrative Resulting Agency Comment Spec In Lab Brody Kaplan APRN URINE ORDERABLES Performing Organization Address [facility]/[place] Co de Phone Number [facility] [place] [address] * (ABNORMAL) pro-Brain Natriuretic Peptide (05/11/2023 7:11 PM EDT) Pathologist [facility] NT-proBNP >35,000(H) <=124 pg/mL [facility] Blood 05/11/2023 7:11 PM EDT 05/11/2023 7:26 PM EDT Narrative Resulting Agency Comment Spec In Lab Radha Hollins MD CHEMISTRY ORDERABL ES Performing Organization Address [facility]/[place] Co de Phone Number [facility] [place] [address] * (ABNORMAL) Lactate, whole blood, send to lab ([facility] [place] (05/11/2023 2:47 PM EDT) Lactate WB 2.9(H) 0.5 - 2.2 mmol/L [facility] Blood 05/11/2023 2:47 PM EDT 05/11/2023 2:53 PM EDT Narrative Resulting Agency Comment Spec In Lab Juan Luis Gonzalez MD CHEMISTRY ORDERABLES [facility] [place] [address] * (ABNORMAL) CT Angiogram Abdomen & Pelvis [...] ? Electronically signed by: Cullen Narayanan MD, [facility] ([phone]), at 05/11/2023 4:37 PM Narrative 05/11/2023 4:37 [...] 610 mm2 Circumference: 88 mm Calcification: Mild Ytdjrpk-jf-qwcngyun height: Left: 6.2 mm Right: 5.8 mm THORACIC AORTA Description: Normal course and caliber. ??Mild diffuse atherosclerotic changes. No acute aortopathy noted. [employer] dimensions: Aortic root: 27.6 mm Max ascending aorta: 30.5 mm x 27.7 mm Suggested fluoroscopic angulation based on line extending through the nadirs of the three sinuses of Valsalva, set equidistant: ?? ROMANSH ??9 degrees; cranial 7 degrees MITRAL: Mitral [...] 610 mm2 Circumference: 88 mm Calcification: Mild Bdadqme-fp-bqjlmobw height: Left: 6.2 mm Right: 5.8 mm THORACIC AORTA Description: Normal course and caliber. Mild diffuse atheroscleroticchanges. No acute aortopathy noted. [employer] dimensions: Aortic root: 27.6 mm Max ascending aorta: 30.5 mm x 27.7 mm Suggested fluoroscopic angulation based on line extending through thenadirs of the three sinuses of Valsalva, set equidistant: ROMANSH 9 degrees; cranial 7 degrees MITRAL: Mitral [...] care giver that requested your imaging first. Antelmo Sharma MD IMG CT ORDERABLES * (ABNORMAL) Lactate, whole blood, send to lab ([facility] [place] [place] (05/11/2023 9:29 AM EDT) Lactate WB 3.1(H) 0.5 - 2.2 mmol/L [facility] Blood 05/11/2023 9:29 AM EDT 05/11/2023 9:38 AM EDT Narrative Resulting Agency Comment Spec In Lab Juan Luis Gonzalez MD CHEMISTRY ORDERABLES Performing Organization Address City/State/[place] Co de Phone Number [facility] [place] [address] * (ABNORMAL) Differential, Automated (05/11/2023 4:42 AM EDT) Neutrophil % 78.1 % [facility] Neutrophil Absolute 5.46 1.70 - 6.10 x10(3)/mc L [facility] Lymph % 10.6 % [facility] Lymphocytes Abs 0.7(L) 0.9 - 3.2 x10(3)/mc L [facility] Monocyte % 9.6 % [facility] Monocyte Abs 0.7 0.3 - 0.9 x10(3)/mc L [facility] Eos % 0.0 % [facility] Eosinophils Abs 0.0 0.0 - 0.4 x10(3)/mc L [facility] Basophil % 0.4 % [facility] Baso Absolute 0.0 [...] HEMATOLOGY OR DERABLES [facility] [place] [address] * (ABNORMAL) Hemogram (05/11/2023 4:42 AM EDT) [...] Volume 10.1 7.6 - 12.[address] [facility] NRBC% auto 0.0 % [facility] NRBC Absolute 0.000 0.000 - 0.000 x10(3)/mc L [facility] Blood 05/11/2023 4:42 AM EDT 05/11/2023 4:49 AM EDT Narrative Resulting Agency Comment Spec In Lab Klaudia Reid MD HEMATOLOGY OR DERABLES Performing Organization Address [facility]/[place] Co de Phone Number [facility] [place] [address] * Heparin (unfractionated) Level (05/11/2023 4:42 AM EDT) UF Heparin 0.46 IU/mL [facility] Comment: Heparin (anti-Xa) levels should [...] HEMATOLOGY ORDERAB LES Performing Organization Address [facility]/[place] Co de Phone Number [facility] [place] [address] * (ABNORMAL) Comprehensive metabolic panel (non-fasting) (05/11/2023 4:42 AM EDT) Glucose 143 65 - 199 mg/dL [facility] Comment:Diabetes: >=200 mg/d L plus symptoms Blood Urea Nitrogen 42(H) 8 - 18 mg/dL [facility] Creatinine 1.24(H) 0.70 - 1.20 mg/dL [facility] Sodium 134(L) 135 - 145 mmol/L [facility] Potassium 4.6 3.5 - 5.0 mmol/L [facility] Comment: Please note: ??Patients with [...] mg/dL [facility] Protein, Total 7.2 6.1 - [...] CHEMISTRY ORDERABL ES [facility] [place] [address] * EKG 12 Lead (05/10/2023 1:16 PM EDT) Ventricular rate 118 BPM MUSE SYSTEM Atrial Rate 118 BPM MUSE SYSTEM P-R Interval 152 ms MUSE SYSTEM QRS Duration 104 ms MUSE SYSTEM Q-T Interval 316 ms MUSE SYSTEM QTC Calculated (Bezet) 442 ms MUSE SYSTEM Calculated P [place] 29 degrees MUSE SYSTEM Calculated R [place] 18 degrees MUSE SYSTEM Calculated T [place] -173 degrees MUSE SYSTEM INTERPRETATION Sinus tachycardia [...] Anterior leads Confirmed by MD Villareal Danette ([id number]) on 05/10/2023 8:47:46 PM MUSE SYSTEM 05/10/2023 1:16 PM EDT 05/10/2023 8:47 PM EDT Juan Luis Gonzalez MD ECG ORDERABLES MUSE SYSTEM * Lactate, whole blood, send to lab ([facility] [place] [place] (05/10/2023 11:52 AM EDT) Lactate WB 1.8 0.5 - 2.2 mmol/L [facility] Blood 05/10/2023 11:5 2 AM EDT 05/10/2023 12:13 PM EDT Narrative Resulting Agency Comment Spec In Lab Juan Luis Gonzalez MD CHEMISTRY ORDERABLES [facility] [place] [address] * XR Chest One View (05/10/2023 11:16 [...] care giver that requested your imaging first. Juan Luis Gonzalez MD IMG DX ORDERABLES * EKG 12 Lead (05/10/2023 7:59 AM EDT) Ventricular rate 115 BPM MUSE SYSTEM Atrial Rate 115 BPM MUSE SYSTEM P-R Interval 142 ms MUSE SYSTEM QRS Duration 102 ms MUSE SYSTEM Q-T Interval 322 ms MUSE SYSTEM QTC Calculated (Bezet) 445 ms MUSE SYSTEM Calculated P [place] 36 degrees MUSE SYSTEM Calculated R [place] 28 degrees MUSE SYSTEM Calculated T [place] -119 degrees MUSE SYSTEM INTERPRETATION Sinus tachycardia [...] [facility] Neutrophil % 77.1 % [facility] Neutrophil Absolute 4.01 1.70 - 6.10 x10(3)/mc L [facility] Lymph % 14.0 % [facility] Lymphocytes Abs 0.7(L) 0.9 - 3.2 x10(3)/mc L [facility] Monocyte % 7.7 % [facility] Monocyte Abs 0.4 0.3 - 0.9 x10(3)/mc L [facility] Eos % 0.4 % [facility] Eosinophils Abs 0.0 0.0 - 0.4 x10(3)/mc L [facility] Basophil % 0.4 % [facility] Baso Absolute 0.0 [...] HEMATOLOGY OR DERABLES [facility] [place] [address] * (ABNORMAL) Hemogram (05/10/2023 2:28 AM EDT) White Blood Cell 5.2 4.0 - 9.5 x10(3)/mc L [facility] Red Blood Cell 3.11(L) 4.00 - 5.21 x10(6)/ L [facility] Hemoglobin 10.2(L) [...] Volume 9.8 7.6 - 12.[address] [facility] NRBC% auto 0.0 % [facility] NRBC Absolute 0.000 0.000 - 0.000 x10(3)/mc L [facility] Blood 05/10/2023 2:28 AM EDT 05/10/2023 2:57 AM EDT Narrative Resulting Agency Comment Spec In Lab Klaudia Reid MD HEMATOLOGY OR DERABLES [facility] [place] [address] * (ABNORMAL) Comprehensive metabolic panel (non-fasting) (05/10/2023 [...] CHEMISTRY ORDERABL ES Performing Organization Address [facility]/[place] [address] * Heparin (unfractionated) Level (05/10/2023 2:28 AM EDT) UF Heparin 0.37 IU/mL [facility] Comment: Heparin (anti-Xa) levels [...] Address City/[facility]/ZIP Co de Phone Number [facility] [place] [address] * (ABNORMAL) Differential, Automated (05/09/2023 4:00 AM EDT) Neutrophil % 81.7 % [facility] Neutrophil Absolute 5.26 1.70 - 6.10 x10(3)/mc L [facility] Lymph % 10.7 % [facility] Lymphocytes Abs 0.7(L) 0.9 - 3.2 x10(3)/mc L [facility] Monocyte % 6.5 % [facility] Monocyte Abs 0.4 0.3 - 0.9 x10(3)/[facility] Eos % 0.5 % [facility] Eosinophils Abs 0.0 0.0 - 0.4 x10(3)/[facility] Basophil % 0.3 % [facility] Baso Absolute 0.0 0.0 - 0.1 x10(3)/[facility] Immature Gran % 0.30 % [facility] Comment: Immature granulocytes(IG's)percentage and absolute count will include metamyelocytes, myelocytes, and promyelocytes. Blood smears from CBCs yielding IG's will be scanned manually for concordance. If this scan disagrees with the automated IG or if promyelocytes are noted, a manual differential will be performed. Immature Gran Absolute 0.02 0.00 - 0.04 x10(3)/[facility] Blood 05/09/2023 4:00 AM EDT 05/09/2023 4:19 AM EDT Narrative Resulting Agency Comment Spec In Lab Klaudia Reid MD HEMATOLOGY OR DERABLES Performing Organization Address City/State/[place] Co de Phone Number [facility] [place] [address] * (ABNORMAL) Hemogram (05/09/2023 4:00 AM EDT) White Blood Cell 6.4 4.0 - 9.5 x10(3)/ L [facility] Red Blood Cell 3.15(L) 4.00 - 5.21 x10(6)/[facility] Hemoglobin 10.2(L) 11.7 - 15.5 g/dL [facility] Hematocrit 30.3(L) 35.7 - 45.8 % [facility] Mean Cell Volume 96.2(H) 82.6 [...] HOSPITAL CENTER [facility] NRBC% auto 0.0 % [facility] NRBC Absolute 0.000 0.000 - 0.000 x10(3)/mc L [facility] Blood 05/09/2023 4:00 AM EDT 05/09/2023 4:19 AM EDT Narrative Resulting Agency Comment Spec In Lab Klaudia Reid MD HEMATOLOGY OR DERABLES [facility] [place] [address] * Heparin (unfractionated) Level (05/09/2023 4:00 AM EDT) UF Heparin 0.47 IU/mL [facility] Comment: Heparin (anti-Xa) levels should [...] HEMATOLOGY ORDERAB LES [facility] [place] [address] * (ABNORMAL) Comprehensive metabolic panel (non-fasting) (05/09/2023 4:00 AM EDT) Glucose 108 65 - 199 mg/dL [facility] Comment:Diabetes: >=200 mg/d L plus symptoms Blood Urea Nitrogen 31(H) 8 - 18 mg/dL [facility] Creatinine 1.03 0.70 - 1.20 mg/dL [facility] [...] MD CHEMISTRY ORDERABL ES Performing Organization Address City/[facility]/ZIP Co de Phone Number [facility] [place] [address] * (ABNORMAL) pro-Brain Natriuretic Peptide (05/08/2023 4:00 PM EDT) NT-proBNP 25,503(H) <=124 pg/mL [facility] Blood Venous Draw / Unknown 05/08/2023 4:00 PM EDT 05/08/2023 4:25 PM EDT Narrative Resulting Agency Comment Spec In Lab Juan Luis Gonzalez MD CHEMISTRY ORDERABLES Performing Organization Address [facility]/[place] Co de Phone Number [facility] [place] [address] * Magnesium (05/08/2023 4:00 PM EDT) Magnesium 0.82 0.69 - 1.07 mmol/L [facility] Blood 05/08/2023 4:00 PM EDT 05/08/2023 4:06 PM EDT Narrative Resulting Agency Comment Spec In Lab Enrique Chua MD CHEMISTRY ORDERABLES Performing Organization Address [facility]/[place] Co de Phone Number [facility] [place] [address] * Potassium (05/08/2023 4:00 PM EDT) Potassium [...] MD CHEMISTRY ORDERABL ES Performing Organization Address [facility]/[place] Co de Phone Number [facility] [place] [address] * Heparin (unfractionated) Level (05/08/2023 4:00 PM EDT) Pathologist [facility] UF Heparin 0.43 IU/mL [facility] Comment: Heparin (anti-Xa) levels [...] HEMATOLOGY ORDERAB LES Performing Organization Address [facility]/[place] Co de Phone Number [facility] [place] [address] * EKG 12 Lead (05/08/2023 3:51 PM EDT) Ventricular rate 98 BPM MUSE SYSTEM Atrial Rate 98 BPM MUSE SYSTEM P-R Interval 150 ms MUSE SYSTEM QRS Duration 102 ms MUSE SYSTEM Q-T Interval 358 ms MUSE SYSTEM QTC Calculated (Bezet) 457 ms MUSE SYSTEM Calculated P [place] 38 degrees MUSE SYSTEM Calculated R [place] 48 degrees MUSE SYSTEM Calculated T [place] -112 degrees MUSE SYSTEM INTERPRETATION Sinus rhythm with frequent and consecutive Premature ventricular and fusion complexes Septal infarct , age undetermined ST & T wave abnormality, consider anterolateral ischemia Abnormal ECG When compared with ECG of 09-NOV-2022 11:17, T wave inversion now evident in Anterolateral leads Confirmed by MD Harshil, Enrique Bell ([id number]) on 05/10/2023 8:11:46 AM MUSE SYSTEM 05/08/2023 3:51 PM EDT 05/10/2023 8:11 AM EDT Radha Hollins MD ECG ORDERABLES MUSE SYSTEM * (ABNORMAL) Differential, Automated (05/08/2023 11:38 AM EDT) Neutrophil % 71.3 % [facility] Neutrophil Absolute 2.91 1.70 - 6.10 x10(3)/mc L [facility] Lymph % 19.1 % [facility] Lymphocytes Abs 0.8(L) 0.9 - 3.2 x10(3)/mc L [facility] Monocyte % 9.0 % [facility] Monocyte Abs 0.4 0.3 - 0.9 x10(3)/mc L [facility] Eos % 0.2 % [facility] Eosinophils Abs 0.0 0.0 - 0.4 x10(3)/mc L [facility] Basophil % 0.2 % [facility] Baso Absolute 0.0 0.0 - [...] Absolute 0.01 0.00 - 0.04 x10(3)/mc L [facility] Blood 05/08/2023 11:3 8 AM EDT 05/08/2023 11:44 AM EDT Narrative Resulting Agency Comment Spec In Lab Lincoln Sal MD HEMATOLOGY ORDERA BLES [facility] [place] [address] * (ABNORMAL) Hemogram (05/08/2023 11:38 AM EDT) White Blood Cell 4.1 4.0 - 9.5 x10(3)/mc L [facility] Red Blood Cell 3.05(L) 4.00 - 5.21 x10(6)/mc L [facility] Hemoglobin 10.2(L) 11.7 - 15.5 g/dL [facility] Hematocrit 29.6(L) 35.7 - 45.8 % [facility] Mean Cell Volume 97.0(H) 82.6 - 94.4 fL [facility] Mean Cell Hemoglobin 33.4(H) 27.1 [...] HOSPITAL CENTER LAB[facility] NRBC% auto 0.0 % [facility] NRBC Absolute 0.000 0.000 - 0.000 x10(3)/mc L [facility] Blood 05/08/2023 11:3 8 AM EDT 05/08/2023 11:44 AM EDT Narrative Resulting Agency Comment Spec In Lab Lincoln Sal MD HEMATOLOGY ORDERA BLES [facility] [place] [address] * TSH (05/08/2023 11:38 AM EDT) Thyroid Stimulating Hormone 1.27 0.27 - 4.20 mcIU/mL [facility] Comment: Reference Interval (mcIU/mL): Females: ??First Trimester: 0.23-3.88 ??Second Trimester: 0.22-3.90 ??Third Trimester: 0.44-4.66 Blood 05/08/2023 11:3 8 AM EDT 05/08/2023 11:44 AM EDT Narrative Resulting Agency Comment Spec In Lab Enrique Chua MD CHEMISTRY ORDERABLES Performing Organization Address City/[facility]/ZIP Co de Phone Number [facility] [place] [address] * (ABNORMAL) Phosphorus (05/08/2023 11:38 AM EDT) Phosphorus 4.7(H) 2.5 - 4.5 mg/dL [facility] Blood 05/08/2023 11:3 8 AM EDT 05/08/2023 11:44 AM EDT Narrative Resulting Agency Comment Spec In Lab Enrique Chua MD CHEMISTRY ORDERABLES Performing Organization Address [facility]/[place] Co de Phone Number [facility] [place] [address] * Magnesium (05/08/2023 11:38 AM EDT) Magnesium 0.76 0.69 - 1.07 mmol/L [facility] Blood 05/08/2023 11:3 8 AM EDT 05/08/2023 11:44 AM EDT Narrative Resulting Agency Comment Spec In Lab Enrique Chua MD CHEMISTRY ORDERABLES Performing Organization Address [facility]/[place] Co de Phone Number [facility] [place] [address] * (ABNORMAL) Basic Metabolic Panel (non-fasting) (05/08/2023 11:38 AM EDT) Glucose 97 65 - 199 mg/dL [facility] Comment:Diabetes: >=200 mg/d L plus symptoms Blood Urea Nitrogen 27(H) 8 - 18 mg/dL [facility] Creatinine 1.02 0.70 - 1.20 mg/dL [facility] Sodium 139 135 - 145 [...] questions. Chloride 105 98 - 107 mmol/L [facility] [...] CHEMISTRY ORDERABLES [facility] [place] [address] * ECHO COMPLETE (05/08/2023 11:02 AM EDT) EF 25 HEARTLAB SYSTEM Anatomical Region Laterality Modality Cardiac Other 05/08/2023 10:0 3 AM EDT Narrative 05/08/2023 11:51 AM EDT ? Echocardiogram Report Name: PURNIMA THACKER ?Study Date: 05/08/2023 10:03 AMBP: 92/64 mmHg ? Patient Location: [facility]^CV29^A : 1955 ? Height: 155 cm ? Account: [id number] Age: 67 yrs ? Weight: 78 kg Gender: Female ?BSA: 1.8 m2 Ordering Physician: ENRIQUE CHUA Referring Physician: MARIO ALBERTO CHIN Performed By: CHUCKIE Canchola Reason For Study: SAVR Stenosis Exam Location: [facility]. Interpretation Summary -Left ventricle [...] worsening stenosis. Mitral regurgitation is similar. Procedure Complete-[id number]. Satisfactory quality. There is normal sinus rhythm. [...] Date: 0:03 AMBP: 92/64 mmHg Patient Location:[facility]^CV29^A : 1955 Height: 155 cm Account: [id number] Age: 67 yrs Weight: 78 kg Gender: Female BSA: 1.8 m2 Ordering Physician: ENRIQUE CHUA Referring Physician: MARIO ALBERTO CHIN Performed By: CHUCKIE Canchola Reason For Study: SAVR Stenosis Exam Location: [facility]. Interpretation Summary -Left ventricle [...] suggestsworsening stenosis. Mitral regurgitation is similar. Procedure Complete-[id number]. Satisfactory quality. There is normal sinus rhythm. [...] AM EDT) UF Heparin 0.54 IU/mL [facility] Comment: Heparin (anti-Xa) [...] Enrique Chua MD HEMATOLOGY ORDERABLE S 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 Mild coronary artery disease by [facility] 11/09/2022 Mixed connective tissue disease Other [...] ejection fraction Mild coronary artery disease by [facility] 11/09/2022 Stenosis of prosthetic aortic valve [...] 81 mg, Oral, DAILY, First dose on Mraquita 05/13/23 at 0900, Until Discontinued, Routine Given [...] dose on Wed05/12/23 at 1030, Until Discontinued, [place] teeth, Routine Given 05/12/2023 10:04 AM EDT [...] 0831, Side port TKO rate, per [facility] flush protocol Rate/Dose Verify 05/13/2023 6:00 AM EDT 10 mL/hr 10 mL/hr Rate/Dose Verify 05/13/2023 4:00 AM EDT 10 mL/hr 10 mL/h r Rate/Dose Verify 05/13/2023 2:00 AM EDT 10 mL/hr 10 mL/h r sodium chloride 0.9% infusion 10-30 mL/hr, Intravenous, DAILY PRN, Starting on Wed05/12/23 at 0944, Until Wed05/17/23 at 0831, Side port TKO rate, per [facility] flush protocol. Rate/Dose Verify 05/17/2023 [...] Mckeon RN) 0832 (Given - Provider: Kia Galelgo, VALDO)2012 (Given - Provider: Favian Mckeon, VALDO) [...] Routine documented in this encounter Care Teams Generator Rebuilder Relationship Specialty Start Date End Date Magdalena Acosta MD [address] [place] [address] PCP - General Family Medicine 02/05/23 documented as of this encounter
--- OUTSIDE RECORDS SUMMARY | 2024-07-13 14:10 | XMS_ITS | Encounter Summary ---
Author Organization [facility] [place] [address] Care Team Providers Care Precision Farming Coordinator Name Role Phone Magdalena Acosta MD Primary Care Provider [phone] Encounter Details Date Type Department Care Team [...] 11/02/2024 12:00 PM EDT Appointment [place] [phone] 11/02/2024 1:00 PM EDT Office [place] [phone] Magdalena Peralta MD [facility] [address] 03/01/2025 4:15 PM EDT Office Visit Dermatology at [place] [address] [place] [address] Marek Bonilla MD [address], [address] [place] [address] documented as of this encounter Visit Diagnoses Not on filedocumented in this encounter Care Teams Precision Farming Coordinator Relationship Specialty Start Date End Date Magdalena Acosta MD [address] [place] [address] PCP - General Family Medicine 02/05/23 documented as of this encounter
--- OUTSIDE RECORDS SUMMARY | 2024-07-13 14:10 | XMS_ITS | Encounter Summary ---
Author Organization [place] [id number] Care Team Providers Care Carton Forming Machine Tender Name Role Phone Magdalena Acosta MD Primary Care Provider [phone] Reason for Visit * Auth/Cert (Routine) Specialty Diagnoses / Procedures Referred By Contac t Referred To Contact Diagnoses Symptomatic severe aortic stenosis with low ejection fraction NSTEMI, CHF Haris Chua MD [facility] [place] [address] [facility] Referral ID Status Reason Start Date Expiration Date Visits Re quested Visits Authorized [id number] 1 1 Encounter Details Date Type Department Care Team (Late st Contact Info) Description 05/12/2023 7:35 AM EDT Anesthesia Event [place] [address] Lynda Mcgowan MD [facility] [place] [address] Alie Park MD [facility] [place] [address] Anesthesia Record Procedure Summary Procedure Name Responsible [...] cephalic vein (lateral side of arm), left; [id number] catheter system; Anatomical Landmarks; US Not Used; [...] RN LDA Cath/EP Sheath 05/12/23; 0733; 14 Irish (Fr); Right; Femoral; Arterial 05/12/23 0733 by Guerda Bender, RN 05/12/23 0830 by Guerda Bender RN LDA Cath/EP Sheath 05/12/23; 0734; 6 Irish (Fr); Right; Femoral; Venous 05/12/23 0734 by Guerda Bender RN 05/12/23 0817 by Guerda Bender RN LDA Cath/EP Sheath 05/12/23; 0734; 7 Irish (Fr); Left; Femoral; Arterial 05/12/23 0734 by Guerda Bender, RN 05/12/23 0837 by Guerda Bender RN LDA Cath/EP Sheath 05/12/23; 0734; 6 Irish (Fr); Left; Femoral; Venous 05/12/23 0734 by [...] Procedure Summary Date: 05/12/23 Room / Location: FOOD SERVICES MANAGER [address] [place] [address] CATH LABS Anesthesia Start: 734 Anesthesia Stop: [...] All Anesthesia Providers: Anesthesiologist: Lynda Mcgowan MD Final Rail Cutter: Nico Graham MD Vitals Value Taken Time [...] ??? Mild coronary artery disease by [facility] 11/09/2022 05/08/2023 ??? Heart failure [...] S&I N/A 11/09/2022 CORONARY ANGIOGRAPHY; W [facility],POSSIBLE PCI (WRVU 5.6) performed by Nitesh Escobedo MD at [facility] CATH LABS ??? PRO AORTOPLAS FOR SUPRAVALV STEN N/A 09/21/2016 @AORTOPLASTY FOR SUPRAVALVULAR STENOSIS (WRVU 29.33) performed by Alirio Esparza MD at [facility] MAIN OR ??? PRO REPLACEMENT PROSTHETIC AORTIC VALVE OPEN W CARDIOPULMONARY BYPASS HOMOGRF/STENT N/A 09/21/2016 @REPLACE AORTIC VALVE, OPEN, W\CPB, W\PROSTHETIC VALVE (WRVU 41.32) performed by Alirio Esparza MD at [facility] MAIN OR Social History Tobacco Use ??? [...] 3 general, with a(n) intravenous induction Add-on [id number] TAVR. In cardiogenic shock. Has arterial line, [...] 11/02/2024 12:00 PM EDT Appointment [place] [address] 11/02/2024 1:00 PM EDT Office Visit [place] [phone] Magdalena Peralta MD [facility] [place] [address] 03/01/2025 4:15 PM EDT Office Visit Dermatology at [place] [address] [place] [phone] Marek Bonilla MD [address], [place] [address] documented as of this encounter Visit Diagnoses [...] mL/hr documented in this encounter Care Teams Carton Forming Machine Tender Relationship Specialty Start Date End Date Magdalena Acosta MD [address] [place] [address] PCP - General Family Medicine 02/05/23 documented as of this encounter
--- OUTSIDE RECORDS SUMMARY | 2024-07-13 14:11 | XMS_ITS | Encounter Summary ---
Author Organization [facility] [place] [address] Care Team Providers Care Retail Delivery Driver Name Role Phone Magdalena Acosta MD Primary Care Provider [phone] Encounter Details Date Type Department Care Team [...] 11/02/2024 12:00 PM EDT Appointment [place] [address] 11/02/2024 1:00 PM EDT Office [place] [address] Magdalena Peralta MD [facility] [place] [address] 03/01/2025 4:15 PM EDT Office Visit Dermatology at [address] [place] [address] Marek Bonilla MD [address] [facility], [place] [address] documented as of this encounter Visit Diagnoses Not on filedocumented in this encounter Care Teams Retail Delivery Driver Relationship Specialty Start Date End Date Magdalena Acosta MD [address] [place] [address] PCP - General Family Medicine 02/05/23 documented as of this encounter
--- OUTSIDE RECORDS SUMMARY | 2024-07-13 14:11 | XMS_ITS | Encounter Summary ---
Author Organization [facility]ly [facility] [place] [address] Care Team Providers Care Pepper Cutter Name Role Phone Magdalena Acosta MD Primary Care Provider [phone] Encounter Details Date Type Department Care Team (Late st Contact Info) Description 03/29/2023 Notes Only Cardiology at [address] [phone] Vahid Plasencia, RN Social History Tobacco Use [...] Mild AR; Moderate MR; Trace [facility] 11/09/2022: Non obstructive CAD STS 4.1 Plan:Schedule SDM clinic, diagnostics and frailty assessment. documented in this encounter Plan of Treatment Upcoming Encounters Date Type Department Care Team (Late st Contact Info) Description 11/02/2024 12:00 PM EDT Appointment [place] [address] 11/02/2024 1:00 PM EDT Office [place] [address] Magdalena Peralta MD [facility] [place] [address] 03/01/2025 4:15 PM EDT Office Visit Dermatology at [place] [address] [facility] [place] [phone] Marek Bonilla MD [address] [facility] [facility] [address], [place] [address] documented as of this encounter Visit Diagnoses Not on filedocumented in this encounter Care Teams Pepper Cutter Relationship Specialty Start Date End Date Magdalena Acosta MD [address] [place] [address] PCP - General Family Medicine 02/05/23 documented as of this encounter
--- OUTSIDE RECORDS SUMMARY | 2024-07-13 14:11 | XMS_ITS | Encounter Summary ---
Author Organization [facility] [place] [address] Care Team Providers Care Talent Management Specialist Name Role Phone Deborah Quiroga APRN Primary Care Provider Encounter Details Date Type Department Care Team (Late st Contact Info) Description 11/09/2022 11:30 AM EDT - 11/09/2022 12:30 PM EDT Surgery [place] [address] Nitesh Escobedo MD [facility] [place] [address] CARDIAC CATHETERIZATION Social History Tobacco Use Types [...] Center 02/05/2023 2:30 PM Marek Bonilla MD [facility] New Medications to be Picked Up None For questions regarding this document or issues relating to this hospitalization on the Medical Service, please contact your inpatient physician through the [facility] Nylon Machine Operator . Issues afterhours and on weekends will be handled by the Hospitalist staff on-call. * Attachments The following attachments cannot be sent through Care Everywhere. * Coronary Angiogram: Post-op (Eritrean) * Right Heart Catheterization: Pulmonary Artery Catheterization: Post-op (Eritrean) documented in this encounter Medications at Time of Discharge Medication Sig Dispensed Refills Start Date End Date nystatin (MYCOSTATIN) 100,000 unit/gram Powder Apply topically 2 times daily as needed. 10/22/2022 [employer] Verio test strips Strip USE DAILY 01/03/2022 [employer] Delica Plus Lancet 33 gauge Misc [...] MD - 11/09/2022 11:20 AM EDT . [facility] Interventional Cardiology Adult Pre-Procedure H&P Update: Cardiac Catheterization Purnima Thacker [id number] 1955 Chief Complaint: BONILLA HPI: Purnima Thacker [...] Marrero MD Interventional Cardiology 11/09/22 11:43 AM [facility] Pager: [phone] documented in this encounter Plan of Treatment Upcoming Encounters Date Type Department Care Team (Late st Contact Info) Description 11/02/2024 12:00 PM EDT Appoint[place] [address] 11/02/2024 1:00 PM EDT Office [place] [address] Magdalena Peralta MD [facility] [place] [address] 03/01/2025 4:15 PM EDT Office Visit Dermatology at [place] [address] [place] [address] Marek Bonilla MD [address] [facility] [address], [place] [address] documented as of this encounter Procedures Procedure Name Priority Date/Time Associated Diagnosis Comments CARDIAC CATHETERIZATION Routine 11/10/19 1:05 PM EDT Aortic valve stenosis, etiology of cardiac valve disease unspecified Cath Plmt Left Heart Cath & Arts W/Inj & Angio Img S&I ([id number]) 11/09/2022 11:51 AM EDT Aortic valve stenosis, etiology of cardiac valve disease unspecified EKG 12-LEAD Routine 11/09/2022 11:17 AM EDT Aortic valve stenosis, etiology of cardiac valve disease unspecified documented in this encounter Results * CARDIAC CATHETERIZATION (11/09/2022 1:05 PM EDT) Anatomical Region Laterality Modality Other Narrative 11/09/2022 2:01 PM EDT ?[facility] ? Cardiac Catheterization/Intervention Report ? Patient Name: Kirstie, Purnima M. ? Procedure Date: 11/09/2022 ? A #: [id number] ? Primary Physician: Nitesh Escobedo ? Case #: [id number] ? File Name: [id number] ? Catheterization Order Number: [id number] ? [facility] ? Final Report [place], [place] ? Patient Name: ? Purnima M. Kirstie ? ID#: ?[id number] ? : ?1955 ? Procedure Date: ? November 09, 2022 ? Case #: ? [id number] ? Room: ? 1 ? Case Physician: [...] sedation nurse. ??Case time = 00:31. ?Dr. Nitehs Escobedo M.D. performed the coronary angiography, right [...] (Bezet) 457 ms MUSE SYSTEM Calculated P [place] 44 degrees MUSE SYSTEM Calculated R [place] 33 degrees MUSE SYSTEM Calculated T [place] 30 degrees MUSE SYSTEM INTERPRETATION Sinus rhythm Occasional Premature ventricular complexes Otherwise normal ECG When compared with ECG of 21-SEP-2016 12:26, Premature ventricular complexes are now Present NC interval has decreased Nonspecific T wave abnormality has replaced inverted T waves in Inferior leads I personally reviewed the tracing and edited the fellows interpretation Confirmed by fellow MD Anitha, Carissa ([id number]) on 11/09/2022 6:17:28 PM Confirmed by Elsa [...] MD) documented in this encounter Care Teams Talent Management Specialist Relationship Specialty Start Date End Date Deborah Quiroga, ANURAG PCP - General Family Medicine 03/24/16 02/04/23 documented as of this encounter
--- OUTSIDE RECORDS SUMMARY | 2024-07-13 14:11 | XMS_ITS | Encounter Summary ---
[place] [address] Care Team Providers Care Edger Operator Name Role Phone Magdalena Acosta MD Primary Care Provider [phone] Reason for Visit * Reason Comments Suture / Staple Removal Encounter Details Date Type Department Care Team (Late st Contact Info) Description 02/16/2023 10:00 AM EDT Office Visit Dermatology at [place] [address] [facility] [place] [phone] Marek Bonilla MD [address] [facility], [address] A DERMATOLOGY [place], [place] [phone] Visit for suture removal Social History Tobacco [...] 12:00 PM EDT Appointment [place] [address] 11/02/2024 1:00 PM EDT Office Visit [place] [address] Magdalena Peralta MD [facility] [place] [address] 03/01/2025 4:15 PM EDT Office Visit Dermatology at [place] [address] [place] [address] Marek Bonilla MD [address] [facility] [address], [place] [address] documented as of this encounter Visit Diagnoses Diagnosis Visit for suture removal Encounter for removal of sutures documented in this encounter Care Teams Edger Operator Relationship Specialty Start Date End Date Magdalena Acosta MD [address] [place] [address] PCP - General Family Medicine 02/05/23 documented as of this encounter
--- OUTSIDE RECORDS SUMMARY | 2024-07-13 14:11 | XMS_ITS | Encounter Summary ---
Author Organization [facility] [place] [address] Care Team Providers Care Search Engine Optimization Strategist Name Role Phone Magdalena Acosta MD Primary Care Provider [phone] Encounter Details Date Type Department Care Team [...] 11/02/2024 12:00 PM EDT [place] [address] 11/02/2024 1:00 PM EDT [place] [address] Magdalena Peralta MD [facility] [place] [address] 03/01/2025 4:15 PM EDT Office Visit Dermatology at [address] [place] [address] Marek Bonilla MD [address] [facility], [place] [address] documented as of this encounter Visit Diagnoses Not on filedocumented in this encounter Care Teams Search Engine Optimization Strategist Relationship Specialty Start Date End Date Magdalena Acosta MD [address] [place] [address] PCP - General Family Medicine 02/05/23 documented as of this encounter
--- OUTSIDE RECORDS SUMMARY | 2024-07-13 14:11 | XMS_ITS | Encounter Summary ---
Author Organization [facility] [place] [address] Care Team Providers Care Contact Worker Name Role Phone Magdalena Acosta MD Primary Care Provider [phone] Encounter Details Date Type Department Care Team [...] 12:00 PM EDT Appoint[place] [address] 11/02/2024 1:00 PM EDT Office [place] [address] Magdalena Peralta MD [facility] [place] [address] 03/01/2025 4:15 PM EDT Office Visit Dermatology at [address] [place] [address] Marek Bonilla MD [address] [facility], [place] [address] documented as of this encounter Visit Diagnoses Not on filedocumented in this encounter Care Teams Contact Worker Relationship Specialty Start Date End Date Magdalena Acosta MD [address] [place] [address] PCP - General Family Medicine 02/05/23 documented as of this encounter
--- OUTSIDE RECORDS SUMMARY | 2024-07-13 14:11 | XMS_ITS | Encounter Summary ---
[place] [address] Care Team Providers Care Felt Dyeing Machine Tender Name Role Phone Magdalena Acosta MD Primary Care Provider Reason for Visit * Reason Comments Skin Lesion Encounter Details Date Type Department Care Team (Late st Contact Info) Description 04/20/2023 10:00 AM EDT Office Visit Dermatology at [address] [address] Marek Bonilla MD [address] [facility], [place] [address] Seborrheic keratosis Social History Tobacco Use Types [...] cutaneous and ocular 3. Previously told by tubing mill operator that she had corneal tears from [...] 11/02/2024 12:00 PM EDT Appointment [place] [address] 11/02/2024 1:00 PM EDT Office [place] [address] Magdalena Peralta MD [facility] [place] [address] 03/01/2025 4:15 PM EDT Office Visit Dermatology at [address] [address] Marek Bonilla MD [address] [place] [address], [place] [address] documented as of this encounter Visit Diagnoses Diagnosis Seborrheic keratosis Other seborrheic keratosis documented in this encounter Care Teams Felt Dyeing Machine Tender Relationship Specialty Start Date End Date Magdalena Acosta MD [address] [place] [address] PCP - General Family Medicine 02/05/23 documented as of this encounter
--- OUTSIDE RECORDS SUMMARY | 2024-07-13 14:11 | XMS_ITS | Encounter Summary ---
Author Organization [facility] [place] [address] Care Team Providers Care Jewel Bearing Turner Name Role Phone Magdalena Acosta MD [...] 11/02/2024 12:00 PM EDT Appointment [place] [address] 11/02/2024 1:00 PM EDT [place] [address] Magdalena Peralta MD [facility] [place] [address] 03/01/2025 4:15 PM EDT Office Visit Dermatology at [address] [place] [address] Marek Bonilla MD [address] [facility], [place] [address] documented as of this encounter Visit Diagnoses Not on filedocumented in this encounter Care Teams Jewel Bearing Turner Relationship Specialty Start Date End Date Magdalena Acosta MD [address] [place] [address] PCP - General Family Medicine 02/05/23 documented as of this encounter
--- OUTSIDE RECORDS SUMMARY | 2024-07-13 14:11 | XMS_ITS | Encounter Summary ---
[place] [address] Care Team Providers Care Rn Clinical Research Name Role Phone Magdalena Acosta MD Primary Care Provider [phone] Reason for Visit * Reason Comments Annual Exam Encounter Details Date Type Department Care Team (Late st Contact Info) Description 02/05/2023 2:30 PM EDT Office Visit Dermatology at [address] [phone] Marek Bonilla MD [address] [facility], [address] A DERMATOLOGY [place], [place] [phone] Rosacea; Ocular rosacea; Nevus Social History Tobacco [...] cutaneous and ocular 2. Previously told by squeegee tender that she had corneal tears from her [...] 11/02/2024 12:00 PM EDT Appointment [place] [address] 11/02/2024 1:00 PM EDT Office [place] [address] Magdalena Peralta MD [facility] [place] [address] 03/01/2025 4:15 PM EDT Office Visit Dermatology at [place] [address] [facility] [place] [address] Marek Bonilla MD [address] [facility] [address], [place] [address] documented as of this encounter Visit Diagnoses Diagnosis Rosacea Ocular rosacea Rosacea Nevus Benign neoplasm of skin, site unspecified documented in this encounter Care Teams Rn Clinical Research Relationship Specialty Start Date End Date Magdalena Acosta MD [address] [place] [address] PCP - General Family Medicine 02/05/23 documented as of this encounter
--- OUTSIDE RECORDS SUMMARY | 2024-07-13 14:11 | XMS_ITS | Encounter Summary ---
Author Organization [facility] [place] [address] Care Team Providers Care General Internist Name Role Phone Magdalena Acosta MD Primary Care Provider [phone] Encounter Details Date Type Department Care Team [...] 11/02/2024 12:00 PM EDT Appointment [place] [address] 11/02/2024 1:00 PM EDT Office [place] [address] Magdalena Peralta MD [facility] [place] [address] 03/01/2025 4:15 PM EDT Office Visit Dermatology at [address] [place] [address] Marek Bonilla MD [address] [facility], [place] [address] documented as of this encounter Visit Diagnoses Not on filedocumented in this encounter Care Teams General Internist Relationship Specialty Start Date End Date Magdalena Acosta MD [address] [place] [address] PCP - General Family Medicine 02/05/23 documented as of this encounter
--- OUTSIDE RECORDS SUMMARY | 2024-07-13 14:11 | XMS_ITS | Encounter Summary ---
[facility] [place] [address] Care Team Providers Care Mental Health Advanced Practice Nurse Name Role Phone Magdalena Acosta MD Primary Care Provider [phone] Reason for Visit * Auth/Cert (Routine) Specialty Diagnoses / Procedures Referred By Contac t Referred To Contact Diagnoses Symptomatic severe aortic stenosis with low ejection fraction NSTEMI, CHF Enrique Chua MD [facility] [place] [address] [facility] Referral ID Status Reason Start Date Expiration Date Visits Re quested Visits Authorized [id number] 1 1 Encounter Details Date Type Department Care Team (Late st Contact Info) Description 05/12/2023 2:50 PM EDT - 05/12/2023 3:50 PM EDT [place] [address] Antelmo Sharma MD [facility] [place] [address] CARDIAC CATHETERIZATION Social History Tobacco Use Types [...] Patient Age: 67 y.o. Birthdate: 1955 Language: Irish Race: White Ethnicity: Not nor Admit Date: 05/08/2023 Discharge Date: 05/22/2023 Attending Physician: Alirio Hudson MD Follow-up Recommendations for Providers: Please continue routine management of cardiovascular risk factors including blood pressure, lipids,glucose, etc. Please note any medication changes. Patient to follow up with PCP, Magdalena Acosta MD, or Primary Bartenders, Avis Mejia MD, in ~ 7-10 days. Patient to follow up with Residence Manager, Dr. Antelmo Sharma, in 2 weeks with an EKG, Echo, CBC, and CMP. Patient to follow up with Nephrology, their office to arrange. Jqmb-Oucyrm-eq interval: After initial 30 day follow-up appointment , all TAVR patients will follow-up again in one year with an echo. 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 Secondary Diagnoses: Active Hospital Problems Diagnosis S/P TAVR (transcatheter aortic valve replacement) Cardiogenic shock Symptomatic severe aortic stenosis with low ejection fraction Mild coronary artery disease by [facility] 11/09/2022 Heart failure with reduced [...] Tube Placement Right 05/18/2023 Laure Ricks PA [facility] INTERVENTIONL RAD PRG CATH PLMT LEFT HEART CATH & ARTS W/INJ & ANGIO IMG S&I N/A 11/09/2022 CORONARY ANGIOGRAPHY; W [facility],POSSIBLE PCI (WRVU 5.6) performed by Mario Alberto Escobedo MD at [facility] CATH LABS PRG COMBINED RIGHT & LEFT HEART CATH W/INJ L VENTRICULOGRAPHY, IMG S&I N/A 05/12/2023 COMBINED RIGHT & LEFT HEART CATH,INC INJ FOR L VENTRICULOGRAPHY (WRVU 5.99) performed by Antelmo Sharma MD at [facility] CATH LABS PRO AORTOPLAS FOR SUPRAVALV STEN N/A 09/21/2016 @AORTOPLASTY FOR SUPRAVALVULAR STENOSIS (WRVU 29.33) performed by Alirio Hudson MD at [facility] MAIN OR PRO REPLACE AORTIC VALVE (TAVR/FEDERICO)PERC FEMORAL ARTERY APPROACH 05/12/2023 @TRANSCATHETER AORTIC VALVE REPLACEMENT (TAVR), PERCUTANEOUS FEMORAL (WRVU 22.47) performed by Alirio Hudson MD at [facility] CATH LABS PRO REPLACEMENT PROSTHETIC AORTIC VALVE OPEN W CARDIOPULMONARY BYPASS HOMOGRF/STENT N/A 09/21/2016 @REPLACE AORTIC VALVE, OPEN, W\CPB, W\PROSTHETIC VALVE (WRVU 41.32) performed by Alirio Hudson MD at [facility] MAIN OR Prior To Admission Medications [...] Major Procedures/Operations: 05/12/23: Successful right transfemoral TAVR Urpig-so-Ninym with a 23 mm Lai 3 THV. [...] TAVR and she was brought to the home performance laborer the following morning where Drs. Alirio [...] if you have questions. Please call your Residence Manager's office if you have any discharge or drainage from your procedural sites. Your Residence Manager, Dr. Antelmo Sharma and/or the Sales Driver may be reached at . Antibiotic prophylaxis: You will need to take antibiotics prior to many invasive tests and treatments, such as dental cleaning, which should be done every 6 months. Your primary care physician or your dentist can prescribe this medication. Please refer to the card with the [place] [employer] Guidelines for more information. You have been provided with a copy of this card. Please refer to the [place] [employer] Guidelines for more information. Good [...] resume a low fat, low cholesterol, [place] [employer] Diet Driving: No restrictions. Shower/Bath: You may shower daily. No baths, soaking, or swimming for the first week. Wound care: Wash the sites daily with soap and rinse well, pat dry. Assess for any signs of infection such as increased redness, pain, warmth or drainage. Please call your sales performance analyst's office if you have any discharge or drainage from your procedural sites. If there is a lot of swelling, apply mamta wraps during the day and remove at bedtime. Elevate your legs when you are sitting. Home oxygen therapy: N/A Follow up appointments: Please schedule a follow-up appointment with your PCP, Magdalena Acosta MD, or Primary Bartenders in ~ 7-10 days. You have a follow-up appointment with your Residence Manager, Dr. Antelmo Sharma, in 2 weeks with an EKG, Echo, and labs prior to your appointment. You will need follow-up with Nephrology, their office will arrange. Xugi-Afvuay-ea interval: After initial 30 day follow-up appointment [...] [facility] Arrive at: [facility] Instructor Area [phone] 02/11/2024 2:00 PM Marek Bonilla MD Dermatology at [place] Arrive at: [facility] [address] [phone] Future Orders Complete By Expires Type and Screen Future Surgery, [facility] SAME DAY PROGRAM ONLY) [OEK0450 Custom] 05/11/2023 Process Instructions: This test is intended ONLY for patients with upcoming surgery for testing prior to the day of surgery obtained through the same day program (4V or SDP). For ALL OTHER PATIENTS, order a Type and Screen (KPA510) This order includes the physician order for an ABO Recheck if requested by the Blood Bank. Scheduling Instructions: Comments: Questions: Date of surgery: CBC (with Diff) [AWN159 Custom] 06/05/2023 12/05/2023 Process Instructions: INCLUDES: WBC, RBC, Hgb, Hct, Platelets, RBC Indices and Differential Scheduling Instructions: Comments: Questions: Comprehensive metabolic panel (non-fasting) [LAB17 Custom] 06/05/2023 08/20/2023 Process Instructions: INCLUDES: Calcium, T Protein, Albumin, AST, ALT, Alk Phos, T Bili, BUN, Creat, GFR, Glucose, Lytes. Scheduling Instructions: Comments: Questions: Echocardiogram Transthoracic [66009 CPT(R)] 06/05/2023 12/05/2023 Process Instructions: Scheduling Instructions: Questions: Where will study be performed?: [facility] Clinics Does the patient have Congenital Heart Disease?: Does patient require sedation?: GA rationale: EKG 12 Lead [22987 CPT(R)] 06/05/2023 12/05/2023 Process Instructions: Scheduling Instructions: Questions: Which location will this be performed?: [place] Is a rhythm strip needed?: No [facility] [EQ161 Custom] As directed Process Instructions: Scheduling Instructions: Questions: Device Needed: WALKER (E0143) Patient Height (cm): 154.9 cm (5' 0.98) Patient Weight: 75.4 kg (166 lb 3.2 oz) Diagnosis: Unsteady gait when walking Referral to Cardiac Rehab [QDD126 Custom] As directed Process Instructions: If no [...] VNA SERVICES PATIENT'S LOCATION: Purnima Thacker [address] [place] [address] [phone] (home) Police Surgeon's Name: Irineo and brother Raymond In discussion with the attending physician, it is certified that this patient is under his/her careand that MD, or an PICKING CREW SUPERVISOR, ROLL ON MAN, or PA who is working directly with him/her, had a ajbg-vi-vrpn encounter that meets the physician dbks-sg-llqi encounter requirements with this patient on 05/22/2023. [...] for managing ADLs. HOME HEALTH CARE AGENCY: [facility]. [address] [facility] [address] PHONE: [phone] FAX: [phone] Start of care: Ideally 24-48 hours after [...] patient's PCP: Magdalena Acosta MD [address] [facility] / [facility] [phone] All VNA agencies which cover the area [...] Surgery Date: 05/22/2023 CC: Magdalena Acosta MD [place] Alberto maxwell MD [address] [place] [address] [place] [address] documented in this encounter Discharge Instructions * Patient Instructions* Vinod Juárez PA - 05/22/2023 9:32 AM EDT TAVR Discharge Instructions: Call your doctor if: You have a fever of greater than 101 degrees, shaking chills, if you develop redness or drainage from your procedure sites, or if you have questions. Please call your Residence Manager's office if you have any discharge or drainage from your procedural sites. Your Residence Manager, Dr. Antelmo Sharma and/or the Sales Driver may be reached at . Antibiotic prophylaxis: You will need to take antibiotics prior to many invasive tests and treatments, such as dental cleaning, which should be done every 6 months. Your primary care physician or your dentist can prescribe this medication. Please refer to the card with the [place] [employer] Guidelines for more information. You have been provided with a copy of this card. Please refer to the [place] [employer] Guidelines for more information. Good [...] resume a low fat, low cholesterol, [place] [employer] Diet Driving: No restrictions. Shower/Bath: You may shower daily. No baths, soaking, or swimming for the first week. Wound care: Wash the sites daily with soap and rinse well, pat dry. Assess for any signs of infection such as increased redness, pain, warmth or drainage. Please call your sales performance analyst's office if you have any discharge or drainage from your procedural sites. If there is a lot of swelling, apply mamta wraps during the day and remove at bedtime. Elevate your legs when you are sitting. Home oxygen therapy: N/A Follow up appointments: Please schedule a follow-up appointment with your PCP, Magdalena Acosta MD, or Primary Bartenders in ~ 7-10 days. You have a follow-up appointment with your Residence Manager, Dr. Antelmo Sharma, in 2 weeks with an EKG, Echo, and labs prior to your appointment. You will need follow-up with Nephrology, their office will arrange. Oils-Mhpwwj-aw interval: After initial 30 day follow-up appointment [...] ins ( tef) Haven Ba, PT Pager: [phone] Physical Therapy Inpatient Rehabilitation Department * Nico [...] 0600 and on the weekends please page [phone]. * Jory Paniagua - 05/20/2023 3:52 PM [...] vomiting Last Bowel Movement: 05/20/23 Jory Paniagua Taxi Dancer * Tong Mike, OT - 05/20/2023 3:16 [...] Tube Placement Right 05/18/2023 Laure Ricks PA [facility] INTERVENTIONL RAD PRG CATH PLMT LEFT HEART CATH & ARTS W/INJ & ANGIO IMG S&I N/A 11/09/2022 CORONARY ANGIOGRAPHY; W [facility],POSSIBLE PCI (WRVU 5.6) performed by Mario Alberto Escobedo MD at [facility] CATH LABS PRG COMBINED RIGHT & LEFT HEART CATH W/INJ L VENTRICULOGRAPHY, IMG S&I N/A 05/12/2023 COMBINED RIGHT & LEFT HEART CATH,INC INJ FOR L VENTRICULOGRAPHY (WRVU 5.99) performed by Antelmo Sharma MD at [facility] CATH LABS PRO AORTOPLAS FOR SUPRAVALV STEN N/A 09/21/2016 @AORTOPLASTY FOR SUPRAVALVULAR STENOSIS (WRVU 29.33) performed by Alirio Hudson MD at [facility] MAIN OR PRO REPLACE AORTIC VALVE (TAVR/FEDERICO)PERC FEMORAL ARTERY APPROACH 05/12/2023 @TRANSCATHETER AORTIC VALVE REPLACEMENT (TAVR), PERCUTANEOUS FEMORAL (WRVU 22.47) performed by Alirio Hudson MD at [facility] CATH LABS PRO REPLACEMENT PROSTHETIC AORTIC VALVE OPEN W CARDIOPULMONARY BYPASS HOMOGRF/STENT N/A 09/21/2016 @REPLACE AORTIC VALVE, OPEN, W\CPB, W\PROSTHETIC VALVE (WRVU 41.32) performed by Alirio Hudson MD at [facility] MAIN OR Social History: Patient lives alone. Home Setup: Pt lives on one level with tub shower and three steps to enter. DME: none used MIX HOUSE TENDER Baseline ADL/Mobility: Independent with ADLs and IADLs. [...] awareness: WFL Vision & Perception: corrective lenses drum barker operator Communication: WFL Range of motion, strength, [...] Discharge planning. Total Minutes, Occupational Therapy: 28 (0511-1683) OT Evaluation Code Rationale: Diagnosis & Pertinent Co-Morbidities affecting Plan of Care: see PMHx Occupational Profile & Client History: Brief Expanded Extensive x Assessment of Occupational Performance: 1-3 performance deficits 3-5 performance deficits x 5 + performance deficits Clinical Decision Making: Low Moderate High x Clinical decision making of moderate complexity using standardized patient assessment instrument and measurable assessment of functional outcome. Pager: [phone] TONG MIKE OT 05/20/2023 Occupational Therapy Rehabilitation [...] 0600 and on the weekends please page [phone]. * Rylie Rodriguez MD - 05/19/2023 3:59 [...] and plan. Cynthia Blackburn MD Nephrology Pager: [phone] * Diana Espino - 05/19/2023 1:49 PM EDT Medical Imaging Specialist Encounter Note Patient Name: Purnima Thacker : [id number] MR#: [id number] Admit Date: 05/08/2023 9:14 AM Hospital Day [...] as stated. Total Minutes, Physical Therapy: 38 ([phone]) Henrik Navarrete PTA Pager: [phone] Physical Therapy Inpatient Rehabilitation Department * Nico [...] 0600 and on the weekends please page [phone]. * Laure Ricks PA - 05/19/2023 7:56 [...] Ricks PA-C Interventional Radiology IR Team Pager [phone] * Consuelo Espinoza RN - 05/18/2023 4:13 PM EDT ANGIO NURSING DATABASE Name: Purnima Thacker Date of : 1955 AGE: 67 y.o. Address: [address] [place] [phone] (home) Mobile: No relevant phone numbers on [...] I35.0 Mild coronary artery disease by [facility] 11/09/2022 I25.10 Heart failure with [...] and plan. Cynthia Blackburn MD Nephrology Pager: [phone] * Magdalena Puri, HEALTH SCIENCES MANAGER - 05/18/2023 10:51 AM EDT Images from the original note were not included. [place] [address] STRUCTURAL HEART DISEASE CONSULTATION NOTE PRIMARY CARE [...] stenosis. She is now status post TAVR Wzktx-xz-Motca with a 23 mm Lai 3 THV 05/12/[address] Sharma. Preliminary findings: Successful right transfemoral TAVR Jnzkk-wl-Mnfdv with a 23 mm Lai 3 THV. [...] fraction Mild coronary artery disease by [facility] 11/09/2022 Heart failure with reduced [...] stenosis. She is now status post TAVR Ktfwb-nd-Bclza with a 23 mm Lia 3 THV 05/12/[address] Sharma. Janet TAVR case notable for coronary LAD protective MINNA. Status post TAVR, the patient was transferred to [facility] for pressor and inotropic support. Pressors weaned [...] Magdalena Puri APRN Structural Heart Team Pager [phone] Team Office Please see addendum by Dr. Sharma for final plan and recommendations Associated attestation - Antelmo Sharma MD - 05/19/2023 10:52 PM EDT I have reviewed Magdalena Puri APRN's above history and I agree with the details as written. The assessment and plan were formulated in discussion with me and I agree with them as documented. Antelmo Sharma MD Pager [phone] * Nico Palacios PA - 05/18/2023 8:13 [...] 0600 and on the weekends please page [phone]. * Loli Hernandez, PT - 05/17/2023 5:27 [...] plan as stated. Time IN / OUT: 6513-4322 Total Minutes, Physical Therapy: 54 Billing Code: te-sx2, te-f, angely HERNANDEZ PT Pager: [phone] Physical Therapy Inpatient Rehabilitation Department * Cynthia [...] Well controlled. Cynthia Blackburn MD Nephrology Pager: [phone] * Maggie, Mara, ANURAG - 05/17/2023 8:26 [...] 0600 and on the weekends please page [phone]. * CurtistierneymeccaGuerda C - 05/16/2023 10:44 AM EDT Nutrition Services Note - Low Nutrition Acuity Purnima Thacker is a 67 y.o. female Reason for intervention: hospital day 9 Nutrition Plan: Continue diet order Encourage good PO Lasix and Zofran noted Added special serve: open containers Monitor weight Patient scheduled for a hospital day 9 nutrition evaluation. Employment Law Specialist met with pt at bedside. Pt reports that her appetite and PO has much improved since admission. Denies nausea/vomiting or trouble chewing/swallowing. Employment Law Specialist provided snack list but pt not interested in adding snacks at this time. Her only concern was that she is worried that she will eat too much which will cause too much pressure in her stomach. Employment Law Specialist assured pt and suggested eating smaller [...] Last Bowel Movement: 05/10/23 Guerda Del Valle Taxi Dancer * Vinod Juárez PA - 05/16/2023 10:19 [...] 0600 and on the weekends please page [phone]. * Michael Jeffers MD - 05/16/2023 8:11 AM EDT Images from the original note were not included. Hypertension-Nephrology Inpatient Follow-up Purnima Thacker [id number] 1955 ID: 67 y.o. old female seen [...] IRONSAT 12 (L) 05/16/2023 SFOLATE >20.0 07/03/2022 [id number] 07/03/2022 Lab Results Component Value Date [...] Dr. Ayoub. Please contact me at phone: [phone] or pager: [phone] with any questions. Michael Jeffers MD Nephrology [...] -Nephrology consulted, labs and renal US ordered -[place] removed, ambulated around the unit -bilateral pleural [...] 0600 and on the weekends please page [phone]. * Hortencia Cody MD - 05/15/2023 2:07 [...] not included. Hypertension-Nephrology Inpatient Follow-up Purnima Thacker [id number] 1955 ID: 67 y.o. old female seen [...] HGB 7.8 (L) 05/13/2023 SFOLATE >20.0 07/03/2022 [id number] 07/03/2022 Lab Results Component Value Date [...] Dr. Ayoub. Please contact me at phone: [phone] or pager: [phone] with any questions. Michael Jeffers MD Nephrology & Hypertension Fellow Associated attestation - Kristopher Ayoub MD - 05/15/2023 3:56 PM EDT Renal Staff Addendum Patient seen and examined with Dr. Jeffers. I agree with the above note which represents our joint assessment and plan with the following additions: EVASN in the setting of TAVR, CHF. Volume [...] last 720 hours. T/L/D Art ETT CVL Bartow ASSESSMENT, MANAGEMENT, and DECISION MAKIN y.o. female [...] outlined inthis evaluation. HAVEN BA, PT Pager: [phone] Physical Therapy Inpatient Rehabilitation Department Time IN / OUT: 8094-2999 Total time: Total Minutes, Physical Therapy: 30 [...] 0600 and on the weekends please page [phone]. * Antelmo Sharma MD - 05/14/2023 7:56 AM EDT Images from the original note were not included. [facility] [address] [place], [place] [address] STRUCTURAL HEART DISEASE CONSULTATION NOTE PRIMARY CARE [...] stenosis. She is now status post TAVR Jmtac-se-Wovvu with a 23 mm Lai 3 THV 05/12/[address] Sharma. Preliminary findings: Successful right transfemoral TAVR Qwvnb-is-Atkfj with a 23 mm Lai 3 THV. [...] fraction Mild coronary artery disease by [facility] 11/09/2022 Heart failure with reduced [...] stenosis. She is now status post TAVR Ghnno-ax-Kbkrn with a 23 mm Lai 3 THV 05/12/[address] Sharma. Janet TAVR case notable for coronary LAD protective MINNA. Status post TAVR, the patient was transferred to [facility] for pressor and inotropic support. Pressors weaned [...] Brody Kaplan APRN Structural Heart Team Pager [phone] Team Office Please see addendum by Dr. [...] exposure. Nephrology consultationtoday. Antelmo Sharma MD Pager [phone] * Antelmo Cardenas RN - 05/14/2023 5:18 AM EDT Pt AOx4, complaining of mild/moderate generalized pain (states her Meloxicam is effective at home) currently refusing prn oxycodone. NAEON, hemodynamically stable on Milrinone, Maps >65, ST in npw349's down to NSR with frequent multifocal PVC's. [...] from the original note were not included. [facility] [place] [address] STRUCTURAL HEART DISEASE PROGRESS NOTE PRIMARY CARE [...] stenosis. She is now status post TAVR Iaehf-zv-Pdktj with a 23 mm Lai 3 THV 05/12/[address] Sharma. Preliminary findings: Successful right transfemoral TAVR Epaqe-jj-Rcvym with a 23 mm Lai 3 THV. [...] Transferred to [facility] post- TAVR for pressor/inotropic support (Levo, vaso, [...] fraction Mild coronary artery disease by [facility] 11/09/2022 Heart failure with reduced [...] stenosis. She is now status post TAVR Jhnmn-ug-Loetd with a 23 mm Lai 3 THV 05/12/[address] Sharma. Janet TAVR case notable for coronary LAD protective MINNA. Status post TAVR, the patient was transferred to [facility] for pressor and inotropic support. Pressors weaned [...] Brody Kaplan APRN Structural Heart Team Pager [phone] Team Office Please see addendum by Dr. [...] DAPT moving forward. Antelmo Sharma MD Pager [phone] * KaBonita stewart PA - 05/13/2023 8:30 AM EDT Cardiac Surgery Progress Note Purnima Thacker is a 67 y.o. 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 PMH of s/p tissue AVR (2017), mixed connective tissue disease HTN, HLD, NICOLAS, diverticulosis, rosacea, essential tremor, and depression. 24h Events: From home performance laborer for above procedure Extubated at ~1600 [...] soft b/l, no evidence of hematoma. Tubes/Lines/Drains: [place], RIJ, A-line, Art, PIV Assessment/Plan: 67 y.o. [...] 0600 and on the weekends please page [phone]. * Onelia Schwartz MD - 05/12/2023 1:44 [...] fraction Mild coronary artery disease by [facility] 11/09/2022 Heart failure with reduced [...] FiO2 weaned to 40%. 1105: ABG 7.34/42/73/22 4303-4891: SBT performed and passed on these settings [...] PCP: Magdalena Acosta MD PCP phone number: [phone] Date of Admission: 05/08/2023 ( Hospital Day [...] 0705/12/2331705/12/2310505/11/23193905/11/231446 PHART -- 7.34* 7.34* -- -- DWP4GNM -- 30* 30* -- -- PO2ART -- 72* 81* -- -- TRX8QYG -- 16.0* 15.7* -- -- LACTATEVEN 2.4* 2.7* 2.7* 4.8* 2.9* VBG (Venous Blood Gas) Recent Labs 05/12/23 0700 05/12/2331705/12/2310505/11/23193905/11/231446 LACTATEVEN 2.4* 2.7* 2.7* 4.8* 2.9* Mixed Venous Sat Recent Labs 05/12/23 0508 05/12/23 0321 05/12/23 0114 05/12/23 0030 [id number] 30.7 32.7 37.3 25.1 Objective: Vitals Last [...] have questions please contact the health care director rn that requested your imaging first. Electronically signed by: ALIX RUVALCABA MD, [facility] ([phone]), at 05/10/2023 1:[address] Cardiac for [...] have questions please contact the health care director rn that requested your imaging first. Electronically signed by: Cullen Narayanan MD, [facility] ([phone]), at 05/11/2023 4:[address] Angiogram Abdomen [...] have questions please contact the health care director rn that requested your imaging first. Electronically signed by: Eileen Gomes MD, [facility] ([phone]), at 05/11/2023 2:42 PM XR Chest One [...] have questions please contact the health care director rn that requested your imaging first. Electronically signed by: Will Rowe MD, [facility] ([phone]), at 05/11/2023 11:57 PM XR Chest One [...] have questions please contact the health care director rn that requested your imaging first. Electronically signed by: Will Rowe MD, [facility] ([phone]), at 05/12/2023 3:16 AM Assessment & Plan: [...] and inotrope. She is planned for a aekqq-jt-ecptm TAVR this morning, which should hopefully improve [...] MD, FACP, FACC Section of Cardiovascular Medicine [facility] News Directorsenior applications engineer [facility] [place] [facility] * Noreen Deutsch RN - 05/12/2023 [...] fraction Mild coronary artery disease by [facility] 11/09/2022 Heart failure with reduced [...] 05/11/2023 4:11 PM EDT Reported off to BUSINESS DEVELOPMENT AGENT and pt transferred over in the bed for higher level of care. * Antelmo Sharma MD - 05/11/2023 9:45 AM EDT Images from the original note were not included. [place] [id number] STRUCTURAL HEART DISEASE CONSULTATION NOTE PRIMARY CARE [...] who had been referred for possible TAVR koowd-va-wpgka evaluation. Her primary symptoms are of dyspnea [...] [facility]. 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 [...] fraction Mild coronary artery disease by [facility] 11/09/2022 Heart failure with reduced [...] lab ([facility] Result Value Ref Range Lactate WB 3.1 (H) 0.5 - 2.2 mmol/L Heparin (unfractionated) Level Result Value Ref Range Heparin UFH Level 0.46 IU/mL Lactate, whole blood, send to lab ([facility] Result Value Ref Range Lactate WB 1.8 [...] leads Confirmed by MD Harshil, Enrique Bell ([id number]) on 05/10/2023 8:11:46 AM Cardiac Cath 11/09/2022 [...] transferred to [facility] this afternoon for further management. TAVR CT imaging support for adequate ileofemoral access. Given her acute deterioration today, will planfor RTF TAVR on 05/12/2023. Brody Kaplan APRN Structural Heart Disease Pager [phone] Please see addendum by Dr. Sharma for [...] signed and dated. Antelmo Sharma MD Pager [phone] * Harini Lance MD - 05/11/2023 6:06 AM EDT Images from the original note were not included. Cardiology Progress Note Patient info: Name: Purnima Thacker : 1955 PCP: Magdalena Acosta MD PCP phone number: [phone] Date of Admission: 05/08/2023 ( Hospital Day [...] have questions please contact the health care director rn that requested your imaging first. Electronically signed by: ALIX RUVALCABA MD, [facility] ([phone]), at 05/10/2023 1:25 PM TTE: 05/08 -Left [...] 09/2016) Mild coronary artery disease by [facility] 11/09/2022 Hyperlipidemia, unspecified NICOLAS (obstructive [...] PCP: Magdalena Acosta MD PCP phone number: [phone] Date of Admission: 05/08/2023 ( Hospital Day [...] 09/2016) Mild coronary artery disease by [facility] 11/09/2022 Hyperlipidemia, unspecified NICOLAS (obstructive [...] PCP: Magdalena Acosta MD PCP phone number: [phone] Date of Admission: 05/08/2023 ( Hospital Day [...] Gas) No results found for: PHART, PO2ART, TDG9BIF, SBH2MEH Microbiology: Microbiology Results (Last 30 days) No [...] 09/2016) Mild coronary artery disease by [facility] 11/09/2022 Hyperlipidemia, unspecified NICOLAS (obstructive [...] I35.0 Mild coronary artery disease by [facility] 11/09/2022 I25.10 Heart failure with reduced ejection fraction due to heart valve disease I50.20, I38 Cardiogenic shock R57.0 S/P TAVR (transcatheter aortic valve replacement) Z95.2 Past Medical History: Diagnosis Date Anemia Past Surgical History: Procedure Laterality Date PRG CATH PLAZ LEFT HEART CATH & ARTS W/INJ & ANGIO IMG S&I N/A 11/09/2022 CORONARY ANGIOGRAPHY; W [facility],POSSIBLE PCI (WRVU 5.6) performed by Mario Alberto Escobedo MD at [facility] CATH LABS PRO AORTOPLAS FOR SUPRAVALV STEN N/A 09/21/2016 @AORTOPLASTY FOR SUPRAVALVULAR STENOSIS (WRVU 29.33) performed by Alirio Hudson MD at [facility] MAIN OR PRO REPLACEMENT PROSTHETIC AORTIC VALVE OPEN W CARDIOPULMONARY BYPASS HOMOGRF/STENT N/A 09/21/2016 @REPLACE AORTIC VALVE, OPEN, W\CPB, W\PROSTHETIC VALVE (WRVU 41.32) performed by Alirio Hudson MD at [facility] MAIN OR Social History and Habits: [...] I35.0 Mild coronary artery disease by [facility] 11/09/2022 I25.10 Heart failure with reduced ejection fraction due to heart valve disease I50.20, I38 Cardiogenic shock R57.0 S/P TAVR (transcatheter aortic valve replacement) Z95.2 Past Medical History: Diagnosis Date Anemia Past Surgical History: Procedure Laterality Date PRG CATH [facility] LEFT HEART CATH & ARTS W/INJ & ANGIO IMG S&I N/A 11/09/2022 CORONARY ANGIOGRAPHY; W [facility],POSSIBLE PCI (WRVU 5.6) performed by Mario Alberto Escobedo MD at [facility] CATH LABS PRO AORTOPLAS FOR SUPRAVALV STEN N/A 09/21/2016 @AORTOPLASTY FOR SUPRAVALVULAR STENOSIS (WRVU 29.33) performed by Alirio Hudson MD at [facility] MAIN OR PRO REPLACEMENT PROSTHETIC AORTIC VALVE OPEN W CARDIOPULMONARY BYPASS HOMOGRF/STENT N/A 09/21/2016 @REPLACE AORTIC VALVE, OPEN, W\CPB, W\PROSTHETIC VALVE (WRVU 41.32) performed by Alirio Hudson MD at [facility] MAIN OR Social History and Habits: [...] EDT Inpatient Cardiology Progress Note Patient Name: Purniam Thacker Date of Admission: 05/08/2023 ( Hospital [...] Hgb 10.5 CMP - Cr 1.1 BNP 56362 HsTrop 1358 Lactate 1.6 D-dimer 1183 Interval [...] Klaudia Reid MD Internal Medicine PGY-1 Pager [phone], M1-S1 Service Associated attestation - Juan Luis Gonzalez MD - 05/08/2023 10:00 PM EDT Cardiology Attending Addendum Active Hospital Problems Diagnosis Symptomatic severe aortic stenosis with low ejection fraction Heart failure with reduced ejection fraction due to heart valve disease Mild coronary artery disease by [facility] 11/09/2022 Hyperlipidemia, unspecified History of [...] PCP: Magdalena Acosta MD PCP phone number: [phone] Date of Admission: 05/08/2023 ( Hospital Day [...] Hgb 10.5 CMP - Cr 1.1 BNP 71740 HsTrop 1358 Lactate 1.6 D-dimer 1183 Vasoactive [...] the planned procedure. Hand Hygiene: The medical resident did perform hand hygiene prior to arterial [...] arterial line placement. Crispin Timmons MD Sales Driver Associated attestation - Onelia Schwartz MD [...] (flow was non-pulsatile) and appearance of blood. [place]-Marily catheter was placed and locked at 55 [...] information for follow-up [facility], [facility] [address] [place] [address] Cardiac Rehab, [address] [place] [address] [facility], [facility] [address] [place] [address] Transportation: family or friend will provide *Brother [...] Type: *No Product type* / Secondary Insurance: [facility] [employer] [facility] [place] Prescription Coverage: Yes This plan was formulated with input from patient, family (please identify family/friend involved ifapplicable) and team. All are in agreement with plan. Aliza Martino MSN-Ed, RN ACM simulation engineer Office of Care Management Pager #[phone] * Plan of Care - Favian Mckeon [...] Chaudhary RN - 05/21/2023 4:46 PM EDTSummary: [facility] referral OFFICE OF CARE MANAGEMENT [...] planning needs. describing our affiliations within the [facility] and educate about their right to choose where referrals are sent. provide a list of Home Health Agencies / Durable Medical Equipment vendors which serve their preferred geographic area. They have requested referrals to: [facility] [address] [place] [address] Ortho Care Located @ [place], [place] Note routed to a Hosting Engineer who will communicate referrals to facilities and provide any required information. Transportation: family or friend will provide *Brother Raymond on Tuesday 05/22 at 1000 Barriers to discharge: Does not have home 22/02 assist available until tomorrow Tuesday 05/22 Plan going forward: Discharge home into the 22/02 home care of brother Raymond with [facility] and [facility] PT/OT services on Tuesday 05/22 [...] Attending: All Staff: Staff Role Juanita Almaguer Steel Heater Laure Ricks PA Physician Armature Bander Magdalena Rodriguez database admin Nurse Consuelo Espinoza database admin Nurse Post-operative diagnosis/Indication: Right pleural effusion Name [...] Secondary Insurance: [facility] [place] Last Physical Therapy Recommendation: [place] [facility] [place], swing bed rehabilitation facility with to be determined Last Occupational Therapy Recommendation: with Plan for discharge is: Alf Facility / Swing Outpatient Agency/Support Group Needs: None Agency Referrals: Based on discussions with the multi-disciplinary healthcare team, the patient would benefit from SNF / Swing level of care at discharge. I have met with the patient to: discuss discharge planning needs. provide the [facility], Office of Care Management letter from the Bunker Worker pertaining to rehab referrals. provide a letter [...] requested referrals to: [facility] [address] [place] [address] [facility] ([facility]) [address] [place] [address] (Accepts pts only after exhausting all other local SNF options) [facility] (Swing) ([facility]) [address] [place] [address] PHONE: [phone] FAX: [phone] [facility] (Swing) [facility]) [address] [place] [address] PHONE: [phone] FAX: [phone] Note routed to a Hosting Engineer who will communicate referrals to facilities [...] from the original note were not included. [facility] NEPHROLOGY/HYPERTENSION CONSULT NOTE PATIENT: Purnima Thacker [...] in her course. She ultimately underwent a jjoas-ix-vvrnb procedure on and tolerated it well (see operative details). [facility] some [...] 1423 05/12/23 1105 PHART 7.39 7.37 7.34* DAY3WAR 33* 36 42 PO2ART 101 102 73* [id number] 19.5* 20.4 22.1 LACTATEVEN 1.5 1.8 2.8* ADO3EYS 40 40 40 PFRATIOART2 252 255 182 VBG (Venous Blood Gas) Recent Labs 05/12/23 1557 05/12/23 1423 05/12/23 1105 LACTATEVEN 1.5 1.8 2.8* Mixed Venous Sat Recent Labs 05/12/23 1425 05/12/23 0508 05/12/23 0321 [id number] 59.9 30.7 32.7 LFT's: Recent Labs 05/14/23 0110 05/13/23 0115 05/12/23 0600 BILITOT 0.4 0.5 0.9 BILIDIR -- 0.3 -- ALBUMIN 3.6 3.0* 3.5 ALKPHOS 86 85 100 ALT 437* 903* 1,174* AST 319* 792* 1,435* No results found for: UPROTCREAT No results found for: TPROTEINPEP, ALBELECT No results found for: MICROALBUR, CHOH97PYR No results found for: HA1C Lab Results Component Value Date CALCIUM 8.5 05/14/2023 PHOS 4.7 (H) 05/08/2023 No results found for: 25OHVITD MICROBIOLOGY: ProcedureComponentValueUnitsDate/TimeUrine culture [[id number]]Collected: 05/11/231921Lab Status: Final resultSpecimen: Clean Catch UrineUpdated: [...] consulted for assessment if this patient needs ELECTRIC MOTOR ANALYST. Atthis time, we can likely hold off on ELECTRIC MOTOR ANALYST. Her volume status appears sufficient and her metabolic kanwal angements with mild acidosis is not too profound. Patient does not have significant uremic symptoms. We can hold off for today, but the patient is a high risk candidate for needing ELECTRIC MOTOR ANALYST in future daysespecially if her Cr curve trends the direction it is for the next several days. S/p Ibkoh-jt-Spwyg TF TAVR: Management per cardiology. On milrinone gtt. PLAN: - Please obtain following diagnostics: renal US, urinalysis, urine prot/Cr ratio, urine albumin/Cr ratio, CK, uric acid, serum osmol, daily VBGs - No acute indications for ELECTRIC MOTOR ANALYST/dialysis. We will keep close eye on Cr trend, volume status, and metabolics to ensure patient still does not need ELECTRIC MOTOR ANALYST as she ensues intrinsic renal recovery [...] M.H.Katherine., M.A. PGY-V Nephrology-Hypertension Fellow Page # [phone] [facility] [address] 2nd floor, Gmat Instructor [address] [place] [address] * Care Management - Mario Alberto Olmos [...] Type: *No Product type* / Secondary Insurance: [facility] Plan for discharge is: Home w/o [...] Returned to [facility] at 0945. Was intubated in the home performance laborer due to agitation. Maintained bedrest for [...] Operative Note Patient Name: Purnima Thacker : [id number] MR#: [id number] Case Date: 05/12/2023 Surgeon: Surgeon(s) and Role: [...] procedure Note: Patient Name: Purnima Thacker : [id number] MR#: [id number] Case Date: 05/12/2023 Operators Surgeon: Surgeon(s) and Role: Panel 1: * Antelmo Sharma MD - Primary * Rebekah Tejeda MD - Fellow - Assisting Panel 2: * Alirio Hudson MD - Primary Panel 3: * Enrique Chau MD - Primary Preoperative diagnosis: Aortic valve stenosis, severe [I35.0] Postoperative diagnosis: Aortic valve stenosis, severe [I35.0] Procedure(s) performed: Ultrasound-guided RFA access, 6F->14F LFA access, 6F LFV access, 6F Right and left-ileofemoral angiography Temporary transvenous pacing wire Selective left coronary artery angiography Left heart catheterization Transcatheter aortic valve replacement, 23 mm Corona Resilia Stenting of left main with 4.0 x 30 mm Resolute [place] Drug Eluting Stent Perclose x1 + Angio-seal 8 Fr x1, RFA Manual pressure, LFA Manual pressure, LFV Endotracheal intubation (performed by cardiac anesthesia) Preliminary findings: Successful right transfemoral TAVR Cdciv-zt-Umjga with a 23 mm Lai 3 THV. [...] early complications. Full report to follow. Rebekah Tejdea MD, M.Sc. Structural Heart Disease Fellow Pager :[phone] Antelmo Sharma MD Pager [phone] * Op Note - Alirio Hudson MD - 05/12/2023 7:37 AM EDT Preop Diagnosis: Severe aortic stenosis, symptomatic. Postop Diagnosis: Same. Procedure: Transfemoral TAVR procedure with 23mm valve. Surgeon: Alirio Hudson M.D. Bartenders: Danny CULP Procedure: The patient was taken to the home performance laborer. The patient had monitored anesthesia care. 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 [facility] [place] [address] STRUCTURAL HEART DISEASE CONSULTATION NOTE PRIMARY CARE [...] who had been referred for possible TAVR rwetw-xs-kudvq evaluation. Her primary symptoms are of dyspnea [...] [facility]. 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 Hudson of her inpatient status, melissa primary cardiac surgeon. Based on recent clinic [...] Antelmo Sharma MD Structural Heart Disease Pager [phone] * Plan of Care - Sarahi Nice RN - 05/10/2023 3:55 AM EDTSumavis: RN Note and Care Plan Sarahi Nice RN assumed care of pt at time of their arrival to room 362 from [facility]. Pt voices shortness of breath at time [...] VTE (Venous Thromboembolism) Risk Flowsheets (Taken 05/09/2023 2086) VTE Prevention/Management: anticoagulant therapy Intervention: Prevent Infection [...] Plan Flowsheets (Taken 05/09/2023 1539 by Alie Brasdhaw, RN) Equipment Currently Used at Home: none [...] listening utilized Taken 05/08/20231999 by Alivia Kauffman, rn cardiology/Support System Care: self-care encouraged support provided Problem: [...] surrogate would be surrogate decision maker per [place] surrogate decision making law. (Only good for 180 days) Any patient receiving care in [place] must abide by [place] law. The hierarchy for surrogate decision making [...] DME: none Home Address confirmed as: [address] [place] [address] Social & Family Supports: All names listed [...] Secondary Insurance: [facility] [place] ONLY if patient has Medicare A&B - Does this patient have secondary insurance?: Yes ; Prescription Coverage: Yes Preferred Pharmacy: updated to [facility] in [facility] Status: Patient is a : No Primary Care Provider confirmed: Magdalena Acosta MD [phone] Patient/Caregiver Goals of Treatment: Potential Needs for [...] transition of care planning. Alie Bradshaw RN, Pager-[phone] * Plan of Care - Emily Lucero [...] 11/02/2024 12:00 PM EDT [place] [phone] 11/02/2024 1:00 PM EDT [place] [phone] Magdalena Peralta MD [address] [place] [address] 03/01/2025 4:15 PM EDT Office Visit Dermatology at [place] [address] [place] [address] Marek Bonilla MD [address] [place] [address] Scheduled Referrals Name Type Priority Associated Diagnoses [...] Heart Cath W/Inj L Ventriculography, Img S&I ([id number]) 05/12/2023 7:37 AM EDT Aortic valve stenosis, [...] EST Narrative 07/08/2023 12:26 PM EST [address] [place] [address] ? Echocardiogram Report Name: PURNIMA THACKER ?Study Date: 07/08/2023 10:31 AMBP: 118/60 mmHg ? Patient Location: 4A : 1955 ? Height: 155 cm ? Account: [id number] Age: 67 yrs ? Weight: 74 kg Gender: Female ?BSA: 1.7 m2 Ordering Physician: ALIRIO HUDSON Referring Physician: VINOD JUÁREZ Performed By: Felicia Norris RODOLFO Reason For Study: S/P TAVR Exam Location: [facility]. Interpretation Summary Left ventricular systolic function [...] no significant change (post-procedure). Procedure Limited - 20334. Doppler - 32768. Color Doppler - 50958. Satisfactory quality. This study is limited because [...] Note Lee Kincaid MD - 07/08/2023 [address] [place] [address] Echocardiogram Report Name: PURNIMA THACKER Study Date: 0:31 AMBP: 118/60 mmHg Patient Location: : 1955 Height: 155 cm Account: [id number] Age: 67 yrs Weight: 74 kg Gender: Female BSA: 1.7 m2 Ordering Physician: ALIRIO HUDSON Referring Physician: VINOD JUÁREZ Performed By: Felicia Norris RDCS Reason For Study: S/P TAVR Exam Location: [facility]. Interpretation Summary Left ventricular systolic function [...] is nosignificant change (post-procedure). Procedure Limited - 95664. Doppler - 28054. Color Doppler - 42348. Satisfactoryquality. This study is limited because of [...] LABORATORY Creatinine 0.81 0.70 - 1.20 mg/dL [facility] Sodium 142 135 - [...] Carbon Dioxide 26 22 - 31 mmol/L [facility] Anion Gap 12 5 [...] [facility] Co de Phone Number [facility] [place] [address] * (ABNORMAL) Basic Metabolic Panel (non-fasting) (05/22/2023 3:57 AM EDT) Pathologist [facility] Glucose 88 65 - 199 mg/dL [facility] [...] Lab Mara Serrano APRN CHEMISTRY ORDERABL ES [facility] [place] [address] * (ABNORMAL) Basic Metabolic Panel (non-fasting) (05/21/2023 5:06 AM EDT) Pathologist [facility] Glucose 87 65 - 199 mg/dL [facility] Comment:Diabetes: >=200 mg/d L plus symptoms Blood Urea Nitrogen 25(H) 8 - 18 mg/dL [facility] Creatinine 0.84 0.70 - 1.20 mg/dL [facility] Sodium 136 135 - [...] Narrative Resulting Agency Comment Spec In Lab [facility] HEALTH SCIENCES MANAGER CHEMISTRY ORDERABL ES Performing Organization Address City/[facility]/ZIP Co de Phone Number [facility] [place] [address] * Lavender Tube HOLD (05/20/2023 2:52 AM EDT) Lavender Hold Sample in lab. [facility] Blood Venous Draw / Unknown 05/20/2023 2:52 AM EDT 05/20/2023 3:04 AM EDT [facility] HEALTH SCIENCES MANAGER HEMATOLOGY ORDERAB LES [facility] [place] [address] * (ABNORMAL) Basic Metabolic Panel (non-fasting) (05/20/2023 2:52 AM EDT) Glucose 152 65 - 199 mg/dL [facility] Comment:Diabetes: >=200 mg/d L plus symptoms Blood Urea Nitrogen 33(H) 8 - 18 mg/dL [facility] Creatinine 0.82 0.70 - 1.20 mg/dL [facility] [...] Agency Comment Spec In Lab Mara Serrano HEALTH SCIENCES MANAGER CHEMISTRY ORDERABL ES [facility] [place] [address] * (ABNORMAL) Potassium (05/20/2023 2:52 AM EDT) Potassium 3.4(L) 3.5 - 5.0 mmol/L [facility] [...] Agency Comment Spec In Lab Mara Serrano HEALTH SCIENCES MANAGER CHEMISTRY ORDERABL ES [facility] [place] [address] * XR Chest PA & Lateral (Generic) [...] have questions please contact the health care director rn that requested your imaging first. ? [...] who have questions please contactthe health care director rn that requested your imaging first. Electronically signed by: Chyna Johnson MD, [facility]([phone]), at 05/19/2023 2:19 PM Alirio Hudson MD IMG DX ORDERABLES * (ABNORMAL) Basic Metabolic Panel (non-fasting) (05/19/2023 5:49 AM EDT) Glucose 93 65 - 199 mg/dL [facility] Comment:Diabetes: >=200 mg/d L plus symptoms Blood Urea Nitrogen 45(H) 8 - 18 mg/dL [facility] Creatinine 1.02 0.70 - 1.20 mg/dL [facility] Sodium 138 135 - [...] ES [facility] [place] [address] * IR Chest Tube Placement Right (05/18/2023 [...] mg/dL [facility] Comment:result rechecked-[facility] Creatinine 1.64(H) 0.70 - 1.20 mg/dL [facility] Comment:result rechecked-[facility] Sodium 137 135 - 145 mmol/L [facility] [...] Agency Comment Spec In Lab Mara Serrano HEALTH SCIENCES MANAGER CHEMISTRY ORDERABL ES [facility] [place] [address] * XR Chest PA & Lateral (Generic) [...] have questions please contact the health care director rn that requested your imaging first. ? Electronically signed by: Ghassan Reyes MD, [facility] ??([phone]), at 05/17/2023 11:46 AM Narrative 05/17/2023 11:46 [...] who have questions please contactthe health care director rn that requested your imaging first. Electronically signed by: Ghassan Reyes MD, [facility]([phone]), at 05/17/2023 11:46 AM Alirio Hudson MD IMG DX ORDERABLES * (ABNORMAL) Comprehensive metabolic panel (non-fasting) (05/17/2023 4:35 AM EDT) Glucose 89 65 - 199 mg/dL [facility] Comment:Diabetes: >=200 mg/d L plus symptoms Blood Urea Nitrogen 97(H) 8 - 18 mg/dL [facility] Creatinine 2.97(H) 0.70 - 1.20 [...] CHEMISTRY ORDERABLE S Performing Organization Address [facility] Co de Phone Number [facility] [place] [address] * Potassium (05/16/2023 11:15 PM EDT) Potassium [...] CHEMISTRY ORDERABLE S Performing Organization Address [facility] Co de Phone Number [facility] [place] [address] * Magnesium (05/16/2023 5:22 PM EDT) Magnesium 0.96 0.69 - 1.07 mmol/L [facility] Blood 05/16/2023 5:22 PM EDT 05/16/2023 5:27 PM EDT Narrative Resulting Agency Comment Spec In Lab Alirio Hudson MD CHEMISTRY ORDERABLE S Performing Organization Address [facility] Co de Phone Number [facility] [place] [address] * (ABNORMAL) Basic Metabolic Panel (non-fasting) (05/16/2023 5:22 PM EDT) Glucose 106 65 - 199 mg/dL [facility] Comment:Diabetes: >=200 mg/d L plus symptoms Blood Urea Nitrogen 103(H) 8 - 18 mg/dL [facility] Creatinine 3.91(H) 0.70 - 1.20 mg/dL [facility] Comment:result rechecked-imm Sodium 132(L) 135 [...] [facility] Anion Gap 18(H) 5 - 15 mmol/L [facility] Calcium 9.7 8.5 - 10.5 mg/dL [facility] Est Glomerular Filtration Rate 12(L) >=60 mL/min/1. 73 m?? [facility] [...] ORDERABLE S [facility] [place] [address] * (ABNORMAL) Potassium (05/16/2023 11:43 AM EDT) [...] CHEMISTRY ORDERABLE S Performing Organization Address [facility]/ZIP Co de Phone Number [facility] [place] [address] * (ABNORMAL) Ferritin (05/16/2023 4:41 AM EDT) [...] MD CHEMISTRY ORDERABLES Performing Organization Address [facility] Co de Phone Number [facility] [place] [address] * (ABNORMAL) PTH (05/16/2023 4:41 AM EDT) Pathologist [facility] Parathyroid Hormone 120(H) 15 - 65 pg/mL [facility] Blood 05/16/2023 4:41 AM EDT 05/16/2023 4:54 AM EDT Narrative Resulting Agency Comment Spec In Lab Kristopher Ayoub MD CHEMISTRY ORDERABLES Performing Organization Address [facility] Co de Phone Number [facility] [place] [address] * Vitamin D, 25-Hydroxy (05/16/2023 4:41 AM EDT) Vitamin D Total 25 OH 33 21 - 100 ng/mL [facility] Vit D Interp Sufficient [facility] Blood 05/16/2023 4:41 AM EDT 05/16/2023 4:54 AM EDT Narrative Resulting Agency Comment Spec In Lab Kristopher Ayoub MD CHEMISTRY ORDERABLES [facility] [place] [address] * (ABNORMAL) Blood Gas Venous ([facility]) (05/16/2023 [...] 60% COHB Methemoglobin, Venous 0.3 <=1.5 % [facility] Na Whole Blood 130(L) 135 - 145 mmol/L [facility] [...] Whole Bld 82 65 - 199 mg/dL [facility] Comment:Diabetes: >=200 mg/d L plus symptoms Lactate WB 1.1 0.5 - 2.2 mmol/L [facility] Blood Gas Source Venous [facility] Blood Venous Draw / Unknown 05/16/2023 4:22 AM EDT 05/16/2023 4:31 AM EDT Narrative Resulting Agency Comment Spec In Lab Bonita [place] [address] * (ABNORMAL) Differential, Automated (05/16/2023 4:20 AM EDT) Neutrophil % 84.1 % [facility] Neutrophil Absolute 6.22(H) 1.70 - 6.10 x10(3)/mc L [facility] Lymph % 5.8 % [facility] Lymphocytes Abs 0.4(L) 0.9 - 3.2 x10(3)/mc L [facility] Monocyte % 8.8 % [facility] Monocyte Abs 0.6 0.3 - 0.9 x10(3)/mc L [facility] Eos % 0.4 % [facility] Eosinophils Abs 0.0 0.0 - 0.4 x10(3)/mc L [facility] Basophil % 0.0 % [facility] Baso Absolute 0.0 0.0 - [...] Performing Organization Address City/[facility]/[place] [address] * (ABNORMAL) Hemogram (05/16/2023 4:20 AM EDT) [...] of variation 12.9 11.5 - 14.1 % [facility] Mean Platelet Volume 11.3 7.6 - 12.9 fL [facility] NRBC% auto 0.7 % [facility] NRBC Absolute 0.050(H) 0.000 - 0.000 x10(3)/ L [facility] Blood 05/16/2023 4:20 AM EDT 05/16/2023 4:29 AM EDT Narrative Resulting Agency Comment Spec In Lab James Agustin MD HEMATOLOGY ORDER JODIE [facility] [place] [address] * (ABNORMAL) Basic Metabolic Panel (non-fasting) (05/16/2023 [...] ORDERABLE S [facility] [place] [address] * (ABNORMAL) Iron and TIBC (05/16/2023 4:20 [...] In Lab Kristopher Ayoub MD CHEMISTRY ORDERABLES [facility] [place] [address] * (ABNORMAL) Basic Metabolic Panel (non-fasting) (05/15/2023 [...] Performing Organization Address City/[facility]/ZIP Co de Phone Number [facility] [place] [address] * (ABNORMAL) Hemogram (05/15/2023 12:50 AM EDT) White Blood Cell 9.1 4.0 - 9.5 x10(3)/mc L [facility] Red Blood Cell 2.19(L) 4.00 - 5.21 x10(6)/mc L [facility] Hemoglobin 7.2(L) 11.7 - 15.5 g/dL [facility] Hematocrit 20.6(L) 35.7 - 45.8 % [facility] Mean Cell Volume 94.1 82.6 - 94.4 fL [facility] Mean Cell Hemoglobin 32.9(H) 27.1 - 32.0 pg [facility] Mean Cell Hemoglobin Concentration 35.0 31.7 - 35.0 g/dL [facility] Platelet 109(L) 145 - 357 x10(3)/mc L [facility] RDW Standard Deviation 43.6 37.0 - 46.0 fL [facility] RDW coefficient of variation 12.9 11.5 - 14.1 % [facility] Mean Platelet Volume 10.4 7.6 - 12.9 fL [facility] NRBC% auto 2.1 % [facility] NRBC Absolute 0.190(H) 0.000 - 0.000 x10(3)/mc L [facility] Blood 05/15/2023 12:5 0 AM EDT 05/15/2023 12:52 AM EDT Narrative Resulting Agency Comment Spec In Lab Alirio Hudson MD HEMATOLOGY ORDERABL ES Performing Organization Address [facility] Co de Phone Number [facility] [place] [address] * (ABNORMAL) BLOOD GAS 2 VENOUS (05/15/2023 [...] 60% COHB Methemoglobin, Venous 0.6 <=1.5 % [facility] Na Whole Blood 136 135 - 145 mmol/L [facility] K Whole Blood 3.7 [...] Whole Blood 95(L) 98 - 107 mmol/L [facility] Gluc Whole Bld 101 65 - 199 mg/dL [facility] Comment:Diabetes: >=200 mg/d L plus symptoms Lactate WB 1.3 0.5 - 2.2 mmol/L [facility] Flow, Mike 1.0 LPM [facility] Blood Gas Source Venous [facility] Blood 05/15/2023 12:4 9 AM EDT 05/15/2023 12:49 AM EDT Alirio Hudson MD POINT OF CARE TEST ORDERABLES [facility] [address] [place] [address] * US Retroperitoneal Complete (05/14/2023 3:53 PM [...] PM Electronically signed by: Hayden Robledo MD, [facility] ([phone]), at 05/14/2023 4:32 PM Thank you for letting us participate in the care of this patient. If you are a health care provider and have any questions regarding this report, please contact the number above. For patients who have questions, please contact the health care director rn that requested your imaging first. ? Hayden Robledo, Staff Physician Electronically Signed Final Report ?? 05/14/2023 04:39 pm Narrative 05/14/2023 4:39 PM EDT Renal ? (Signed Final 05/14/2023 04:39 pm) PATIENT INFO: ID #: ? [id number] ?: ??[birth year] (67 yrs)(F) Name: ? PURNIMA THACKER ?Visit Date: 05/14/2023 03:44 pm PERFORMED BY: Attending: ?Meena CULP, Hayden Stafford Resident: ? Nell CULP, Anand August Performed By: ? Dimas Tello RDMSa Referred By: ?ALIRIO HUDSON Location: ? [place] SERVICE(S) PROVIDED: URETRO - Retroperitoneal Complete - [id number] ? [id number] INDICATIONS: EVANS COMPARISON: CT: Abdomen/Pelvis 05/11/23 RIGHT [...] 05/14/2023 04:39 pm) PATIENT INFO: ID #: [id number] : [birth year] (67 yrs)(F) Name: PURNIMA THACKER Visit Date: 05/14/2023 03:44 pm PERFORMED BY: Attending: Hayden Robledo MD Resident: Anand Camejo MD Performed By: Consuelo Tello RDMS Referred By: ALIRIO HUDSON Location: [place] SERVICE(S) PROVIDED: URETRO - Retroperitoneal Complete - [id number] INDICATIONS: EVANS COMPARISON: CT: Abdomen/Pelvis 05/11/23 RIGHT [...] PM Electronically signed by: Hayden Robledo MD, [facility] ([phone]), at 05/14/2023 4:32 PM Thank you for letting us participate in the care of this patient. If you are a health care provider and have any questions regarding this report, please contact the number above. For patients who have questions, please contact the health care director rn that requested your imaging first. Hayden [...] CHEMISTRY ORDERABLE S Performing Organization Address [facility] Co de Phone Number [facility] [place] [address] * (ABNORMAL) Uric acid (05/14/2023 3:17 PM EDT) Uric Acid 14.9(H) 2.5 - 6.5 mg/dL [facility] Blood 05/14/2023 3:17 PM EDT 05/14/2023 3:31 PM EDT Narrative Resulting Agency Comment Spec In Lab Alirio Hudson MD CHEMISTRY ORDERABLE S Performing Organization Address [facility] [place] [address] * (ABNORMAL) Osmolality (05/14/2023 3:17 PM EDT) Osmolality 311(H) 275 - 295 mOsm/kg [facility] Blood 05/14/2023 3:17 PM EDT 05/14/2023 3:31 PM EDT Narrative Resulting Agency Comment Spec In Lab Alirio Hudson MD CHEMISTRY ORDERABLE S Performing Organization Address City/[facility]/[place] [address] * (ABNORMAL) Differential, Automated (05/14/2023 1:10 AM EDT) Neutrophil % 87.2 % [facility] Neutrophil Absolute 9.74(H) 1.70 - 6.10 x10(3)/mc L [facility] Lymph % 3.9 % [facility] Lymphocytes Abs 0.4(L) 0.9 - 3.2 x10(3)/mc L [facility] Monocyte % 7.9 % [facility] Monocyte Abs 0.9 0.3 - 0.9 x10(3)/mc L [facility] Eos % 0.0 % [facility] Eosinophils Abs 0.0 0.0 - 0.4 x10(3)/mc L [facility] Basophil % 0.1 % [facility] Baso Absolute 0.0 0.0 - [...] Absolute 0.10(H) 0.00 - 0.04 x10(3)/mc L [facility] Blood 05/14/2023 1:10 AM EDT 05/14/2023 1:24 AM EDT Narrative Resulting Agency Comment Spec In Lab Bonita TOBAR HEMATOLOGY ORDERABLE S [facility] [place] [address] * (ABNORMAL) Hemogram (05/14/2023 1:10 AM EDT) [...] Hemoglobin Concentration 35.5(H) 31.7 - 35.0 g/dL [facility] Platelet 112(L) 145 - 357 x10(3)/mc L [facility] RDW Standard Deviation 41.4 37.0 - 46.0 fL [facility] RDW coefficient of variation 12.5 11.5 - 14.1 % [facility] Mean Platelet Volume 10.4 7.6 - 12.9 fL [facility] NRBC% auto 1.5 % [facility] NRBC Absolute 0.170(H) 0.000 - 0.000 x10(3)/mc L [facility] Blood 05/14/2023 1:10 AM EDT 05/14/2023 1:24 AM EDT Narrative Resulting Agency Comment Spec In Lab Bonita TOBAR HEMATOLOGY ORDERABLE S [facility] [place] [address] * (ABNORMAL) Comprehensive metabolic panel (non-fasting) (05/14/2023 1:10 AM EDT) Glucose 120 65 - 199 mg/dL [facility] [...] mmol/L [facility] Calcium 8.5 8.5 - 10.5 [...] CHEMISTRY ORDERABLE S Performing Organization Address [facility] Co de Phone Number [facility] [place] [address] * APTT (05/13/2023 10:15 AM EDT) Partial [...] ES Performing Organization Address [facility] Co de Phone Number [facility] [place] [address] * (ABNORMAL) Prothrombin Time (05/13/2023 10:15 AM EDT) Prothrombin Time 14.6(H) 9.4 - 12.5 sec [facility] International Normalization Ratio 1.3 [facility] [...] HEMATOLOGY ORDERABL ES Performing Organization Address [facility] Co de Phone Number [facility] [place] [address] * EKG 12 Lead (05/13/2023 9:22 AM EDT) Ventricular rate 92 BPM MUSE SYSTEM Atrial Rate 92 BPM MUSE SYSTEM P-R Interval 140 ms MUSE SYSTEM QRS Duration 104 ms MUSE SYSTEM Q-T Interval 384 ms MUSE SYSTEM QTC Calculated (Bezet) 474 ms MUSE SYSTEM Calculated P [place] 33 degrees MUSE SYSTEM Calculated R [place] 41 degrees MUSE SYSTEM Calculated T [place] -35 degrees MUSE SYSTEM INTERPRETATION Sinus rhythm with frequent Premature ventricular complexes Septal infarct , age undetermined ST & T wave abnormality, consider lateral ischemia Abnormal ECG When compared with ECG of 12-MAY-2023 10:10, Premature ventricular complexes are now Present I personally reviewed the tracing and edited the fellows interpretation Confirmed by fellow MD Anitha, Carissa ([id number]) on 05/13/2023 3:25:30 PM Confirmed by Maxx Best ([id number]) on 05/13/2023 8:30:56 PM MUSE SYSTEM 05/13/2023 9:22 AM EDT 05/13/2023 8:30 PM EDT Alirio Hudson MD ECG ORDERABLES MUSE SYSTEM * (ABNORMAL) Differential, Automated (05/13/2023 1:15 AM EDT) Pathologist [facility] Neutrophil % 88.1 % [facility] Neutrophil Absolute 7.62(H) 1.70 - 6.10 x10(3)/mc L [facility] Lymph % 3.1 % [facility] Lymphocytes Abs 0.3(L) 0.9 - 3.2 x10(3)/mc L [facility] Monocyte % 7.9 % [facility] Monocyte Abs 0.7 0.3 - 0.9 x10(3)/mc L [facility] Eos % 0.0 % [facility] Eosinophils Abs 0.0 0.0 - 0.4 x10(3)/mc L [facility] Basophil % 0.1 % [facility] Baso Absolute 0.0 0.0 - [...] ORDERABLE S [facility] [place] [address] * (ABNORMAL) Hemogram (05/13/2023 1:15 AM EDT) White Blood Cell 8.6 4.0 - 9.5 x10(3)/[facility] Red Blood Cell 2.37(L) 4.00 - 5.21 x10(6)/[facility] Hemoglobin 7.8(L) 11.7 - 15.5 g/dL [facility] Hematocrit 22.2(L) 35.7 - 45.8 % [facility] Mean Cell Volume 93.7 82.6 [...] Platelet Volume 10.2 7.6 - 12.9 fL [facility] NRBC% auto 0.5 % [facility] NRBC Absolute 0.040(H) 0.000 - 0.000 x10(3)/ L [facility] Blood 05/13/2023 1:15 AM EDT 05/13/2023 1:29 AM EDT Narrative Resulting Agency Comment Spec In Lab Lorri TOBAR HEMATOLOGY ORDERABLE S Performing Organization Address City/[facility]/ZIP Co de Phone Number [facility] [place] [address] * (ABNORMAL) Hepatic Function Panel (05/13/2023 1:15 AM EDT) Protein, Total 5.5(L) 6.1 - 8.0 g/dL [facility] Albumin 3.0(L) 3.2 - 5.2 g/dL [facility] Aspartate Aminotransferase 792(H) 0 - 30 unit/L [facility] Alanine Aminotransferase 903(H) 0 - [...] CHEMISTRY ORDERABLE S Performing Organization Address [facility] Co de Phone Number [facility] [place] [address] * (ABNORMAL) Basic Metabolic Panel (non-fasting) (05/13/2023 1:15 AM EDT) Glucose 107 65 - 199 mg/dL [facility] Comment:Diabetes: >=200 mg/d L plus symptoms Blood Urea Nitrogen 82(H) 8 - 18 mg/dL [facility] Creatinine 3.15(H) 0.70 - 1.20 mg/dL [facility] Comment:result rechecked-OG Sodium 132(L) [...] ORDERABLE S [facility] [place] [address] * (ABNORMAL) BLOOD GAS 2 ARTERIAL (05/12/2023 [...] Whole Blood 129(L) 135 - 145 mmol/L [facility] K Whole Blood 3.8 [...] Whole Blood 96(L) 98 - 107 mmol/L [facility] Gluc Whole Bld 178 65 - 199 mg/dL [facility] Comment:Diabetes: >=200 mg/d L plus symptoms. Lactate WB 1.5 0.5 - 2.2 mmol/L [facility] FIO2 Art 40 % [facility] PF Ratio Art 252 [facility] Blood 05/12/2023 3:57 PM EDT 05/12/2023 3:57 PM EDT Alirio Hudson MD POINT OF CARE TEST ORDERABLES Performing Organization Address City/State/[facility] Co de Phone Number [facility] [place] [address] * (ABNORMAL) Coox2 (05/12/2023 2:25 PM EDT) [...] 60% COHB Methemoglobin, Coox 0.7 <=1.5 % [facility] Source Coox Mixed Venous [facility] Blood 05/12/2023 2:25 PM EDT 05/12/2023 2:25 PM EDT Alirio Hudson MD POINT OF CARE TEST ORDERABLES [facility] [place] [address] * (ABNORMAL) BLOOD GAS 2 ARTERIAL (05/12/2023 [...] 60% COHB Methemoglobin, Arterial 0.7 <=1.5 % [facility] Na Whole Blood 129(L) [...] Whole Blood 95(L) 98 - 107 mmol/L [facility] Gluc Whole Bld 168 65 - 199 mg/dL [facility] Comment:Diabetes: >=200 mg/d L plus symptoms. Lactate WB 1.8 0.5 - 2.2 mmol/L [facility] FIO2 Art 40 % [facility] PF Ratio Art 255 [facility] Blood 05/12/2023 2:23 PM EDT 05/12/2023 2:23 PM EDT Alirio Hudson MD POINT OF CARE TEST ORDERABLES [facility] [place] [address] * (ABNORMAL) Troponin (05/12/2023 2:05 PM EDT) [...] [facility] Test Catalog Reference: Fourth [place] Definition of Myocardial Infarction. Journal of the [place] [employer] 2018;72:9849-9505 Blood 05/12/2023 2:05 PM EDT 05/12/2023 2:14 PM EDT Narrative Resulting Agency Comment Spec In Lab Alirio Hudsno MD CHEMISTRY ORDERABLE S Performing Organization Address [facility]/ZIP Co de Phone Number [facility] [place] [address] * (ABNORMAL) Hemoglobin (05/12/2023 2:05 PM EDT) Hemoglobin 8.5(L) 11.7 - 15.5 g/dL [facility] Blood 05/12/2023 2:05 PM EDT 05/12/2023 2:14 PM EDT Narrative Resulting Agency Comment Spec In Lab Alirio Hudson MD HEMATOLOGY ORDERABL ES Performing Organization Address [facility] Co de Phone Number [facility] [place] [address] * Potassium (05/12/2023 2:05 PM EDT) Potassium [...] CHEMISTRY ORDERABLE S Performing Organization Address [facility] Co de Phone Number [facility] [place] [address] * (ABNORMAL) BLOOD GAS 2 ARTERIAL (05/12/2023 11:05 AM EDT) pH, Arterial 7.34(L) 7.35 - 7.45 [facility] PCO2, Arterial 42 35 [...] Whole Blood 131(L) 135 - 145 mmol/L [facility] [...] Whole Blood 96(L) 98 - 107 mmol/L [facility] Gluc Whole Bld 152 65 - 199 mg/dL [facility] Comment:Diabetes: >=200 mg/d L plus symptoms. Lactate WB 2.8(H) 0.5 - 2.2 mmol/L [facility] FIO2 Art 40 % [facility] PF Ratio Art 182 [facility] Blood 05/12/2023 11:0 5 AM EDT 05/12/2023 11:05 AM EDT Alirio Hudson MD POINT OF CARE TEST ORDERABLES [facility] [place] [address] * (ABNORMAL) BLOOD GAS 2 ARTERIAL (05/12/2023 10:14 AM EDT) pH, Arterial 7.18(Criti gabrielle) 7.35 - 7.45 [facility] Comment:Noted by electrical and instrument engineer. PCO2, Arterial 45 35 - 45 mmHg [facility] PO2, Arterial 186(H) 85 - 104 mmHg [facility] Bicarbonate, Arterial 16.2(L) 20.0 - 26.0 mmol/L [facility] Base Excess, Arterial -12.2(L) -3.0 - 3.0 mmol/L [facility] Hgb Blood Gas 10.0(L) 11.7 - 15.5 g/dL [facility] Oxyhemoglobin, Arterial 97.0 94.0 - 97.0 % [facility] Carboxyhemoglob in, Arterial 0.2 % [facility] Comment: Nonsmokers: 0.5-1.5% COHB Smokers: Variable, but usually less than 10% Toxic: 20-30% COHB Lethal: Greater than 60% COHB Methemoglobin, Arterial 0.9 <=1.5 % [facility] Na Whole Blood 129(L) 135 - 145 mmol/L [facility] K Whole Blood 3.6 [...] Lactate WB 3.3(H) 0.5 - 2.2 mmol/L [facility] FIO2 Art 100 % [facility] PF Ratio Art 186 [facility] Blood 05/12/2023 10:1 4 AM EDT 05/12/2023 10:14 AM EDT Alirio Hudson MD POINT OF CARE TEST ORDERABLES [facility] [place] [place] [address] * EKG 12 Lead (05/12/2023 10:10 AM EDT) Ventricular rate 116 BPM MUSE SYSTEM Atrial Rate 116 BPM MUSE SYSTEM P-R Interval 158 ms MUSE SYSTEM QRS Duration 114 ms MUSE SYSTEM Q-T Interval 348 ms MUSE SYSTEM QTC Calculated (Bezet) 483 ms MUSE SYSTEM Calculated P [place] 37 degrees MUSE SYSTEM Calculated R [place] 31 degrees MUSE SYSTEM Calculated T [place] -138 degrees MUSE SYSTEM INTERPRETATION Sinus tachycardia with intermittent aberrant ventricular conduction Possible Left atrial enlargement Incomplete left bundle block Left ventricular hypertrophy with repolarization abnormality ( Sokolow-Orozco , [place] product ) ST & T wave abnormality in Inferolateral leads Abnormal ECG When compared with ECG of 10-MAY-2023 13:16, ST & T wave abnormality is more pronounced in inferolateral leads I personally reviewed the tracing and edited the fellows interpretation Confirmed by fellow MD Anuja, Jim ([id number]) on 05/12/2023 1:04:20 PM Confirmed by MD Mono, Eleni ([id number]) on 05/12/2023 9:28:34 PM MUSE SYSTEM 05/12/2023 [...] have questions please contact the health care director rn that requested your imaging first. ? Electronically signed by: Chyna Johnson MD, [facility] ??([phone]), at 05/12/2023 10:08 AM Narrative 05/12/2023 10:08 AM EDT EXAMINATION: XR CHEST ONE VIEW CLINICAL HISTORY: Post TAVR TECHNIQUE: 1 view of the chest COMPARISON: Chest radiograph from earlier today FINDINGS: Interval placement of endotracheal tube with tip terminating 2 cm above the shira. Interval placement of enteric tube projecting along the expected course of the esophagus and outside the rtqee-mq-bkeb. Interval retraction of right IJ approach pulmonary [...] expected course ofthe esophagus and outside the gyclx-mn-hvhe. Interval retraction of right IJ approach pulmonary [...] who have questions please contactthe health care director rn that requested your imaging first. Electronically signed by: Chyna Johnson MD, [facility]([phone]), at 05/12/2023 10:08 AM Alirio Hudson MD [...] 1955 ? Height: 154 cm ? Account: [id number] Age: 67 yrs ? Weight: 75 kg Gender: Female ?BSA: 1.7 m2 Ordering Physician: RADHA HOLLINS Referring Physician: RADHA HOLLINS Performed By: Dilma Bee RDCS Reason For Study: Guidance for TAVR procedure Exam Location: [facility]. Interpretation Summary PRE TAVR: There is [...] mL/m2. POST TAVR: Normal function of the ztfrb-yb-yamsn prosthesis. See below for hemodynamic parameters. Slight improvement in left and right ventricular systolic function. LVEF now 20-25%. No pericardial effusion. See report for additional findings. Procedure Limited - 75046. Doppler - 96315. Color Doppler - 11402. Left Ventricle Left ventricle is of normal [...] Date: 307:33 AMBP: 96/63 mmHg Patient Location: [address] : 1955 Height: 154 cm Account: [id number] Age: 67 yrs Weight: 75 kg Gender: Female BSA: 1.7 m2 Ordering Physician: RADHA HOLLINS Referring Physician: RADHA HOLLINS Performed By: Dilma Bee RDCS Reason For Study: Guidance for TAVR procedure Exam Location: [facility]. Interpretation Summary PRE TAVR: There is [...] 28mL/m2. POST TAVR: Normal function of the aendr-bw-tcesw prosthesis. See belowfor hemodynamic parameters. Slight improvement in left and right ventricularsystolic function. LVEF now 20-25%. No pericardial effusion. See report for additional findings. Procedure Limited - 07439. Doppler - 52802. Color Doppler - 35848. Left Ventricle Left ventricle is of normal [...] ? Procedure Date: 05/12/2023 ? A #: [id number] ? Primary Physician: Zachary, Antelmo De La Fuente ? Case #: [id number] ? File Name: [id number] ? Catheterization Order Number: [id number] ? [facility] ? Final Report [place], [place] ? Patient Name: ? Purnima M. Kirstie ? ID#: ?[id number] ? : ?1955 ? Procedure Date: ? [...] Device Deployment ?* Temporary Pacemaker Insertion In First Coat Operator ?* Endotracheal Intubation By Non-Cath Physician [...] guide. ??A premounted 4.00 x 30 mm [place] (MINNA) was ? deployed with a maximum [...] calculated STS risk score was 30.1%. A ibufo-fb-tnkyf ?procedure was performed on the pre-existing bioprosthetic stented ?prosthesis. The priority of the mccpd-jq-giwvo procedure was Elective. ?The procedure was performed [...] Lai 3 Ultra RESILIA 23 mm THV (s/t=[id number]) transcatheter ?valve was inserted using standard technique. [...] to nor was it given in the ?home performance laborer. ?Recommended anti-platelet/anti-thrombotic regimen: ?Continue aspirin 81 [...] regimen. ? Comments: ?Successful right transfemoral TAVR Xmxhu-xv-Peoei with a 23 mm Lai 3 ?THV. [...] insertion-coronary, access site angiography, ?temporary pacemaker in home performance laborer, intubation-non cath physician, vascular ?closure device, transthoracic echo ??and TAVR. Dr. Alirio Hudson M.D. ?performed the left heart catheterization, access site angiography, ?temporary pacemaker in home performance laborer, vascular closure device, transthoracic ?echo , [...] Purnima Thacker Procedure Date: 05/12/2023 A #: [id number] Primary Physician: Antelmo Sharma Case #: [id number] File Name: [id number] Catheterization Order Number: [id number] [facility] FinalReport [place], [place] Patient Name: Purnima Thacker ID#:[id number] :1955 Procedure Date: May 12, 2023 Case #: [id number] Room: 6 Case Physicians: Antelmo Sharma M.D. Start: 08:03 Alirio Hudson M.D. Admission:05/08/2023 Lynda Mcgowan M.D. Discharge:05/22/2023 Fellow: Rebekah Tejeda M.D. Referring Physician: Mario Alberto Chin M.D. Procedures: * Coronary Angiography * Left Heart Catheterization * Coronary Stent Insertion * Transcatheter Aortic Valve Replacement * Vascular Closure Device Deployment * Temporary Pacemaker Insertion In First Coat Operator * Endotracheal Intubation By Non-Cath Physician [...] A premounted 4.00 x 30 mm [place] (MINNA) was deployed with a maximum inflation [...] calculated STS risk score was 30.1%. A foicg-vc-qyxev procedure was performed on the pre-existing bioprosthetic stented prosthesis. The priority of the avqcy-yg-jeywa procedure wasElective. The procedure was performed under Moderate sedation performed byLynda Mcgowan M.D. (see anesthesia report for additional details). Alirio Hudson M.D. participated in the case (see Cardiac Surgery reportfor additional details). The TAVR sheath was a 14 Fr Corona eSheath Introducer and theaccess site was femoral. Rapid ventricular pacing was performed. An Corona Lai 3 Ultra RESILIA 23 mm THV (s/t=[id number])transcatheter valve was inserted using standard technique. The [...] prior to nor was it given inthe home performance laborer. Recommended anti-platelet/anti-thrombotic regimen: Continue aspirin 81 [...] this regimen. Comments: Successful right transfemoral TAVR Csvss-ru-Zylgb with a 23 mmSapien 3 THV. We [...] insertion-coronary, access site angiography, temporary pacemaker in home performance laborer, intubation-non cath physician,vascular closure device, transthoracic echo and TAVR. Dr. Alirio Hudson M.D. performed the left heart catheterization, access site angiography, temporary pacemaker in home performance laborer, vascular closure device,transthoracic echo , TAVR [...] Sodium, POC 129(L) 135 - 145 mmol/L [facility] POC Potassium 3.8 3.5 - 5.0 mmol/L [facility] Ionized Calcium, POC 1.12(L) 1.15 - 1.33 mmol/L [facility] POC Hematocrit 23.0(L) 34.0 - 45.0 % [facility] POC Calc Hgb 7.8(L) 11.2 - 15.7 g/dL [facility] Comment:The calculation of h emoglobin from hematocrit assumes a normal MCHC. POC Bgas Loc CC Lab [facility] Blood 05/12/2023 8:50 AM EDT 05/13/2023 12:00 PM EDT Alirio Hudson MD CHEMISTRY ORDERABLE S [facility] [place] [address] * (ABNORMAL) Point of Care Blood Gas Historical (05/12/2023 8:10 AM EDT) pH, POC 7.27(Crit ical) 7.35 - 7.45 [facility] Comment:Critical value OK C C Lab. pCO2, POC 37 35 - 45 mmHg [facility] pO2, POC 29(Critic al) 85 - 104 mmHg [facility] Comment:Critical value OK C C Lab. Base Excess, POC -10.0(L) -3.0 - 3.0 mmol/L [facility] Bicarbonate, POC 16.7(L) 20.0 - 26.0 mmol/L [facility] Sodium, POC 123(L) 135 - 145 mmol/L [facility] POC Potassium 4.0 3.5 - 5.0 mmol/L [facility] Ionized Calcium, POC 1.12(L) 1.15 - 1.33 mmol/L [facility] POC Hematocrit 27.0(L) 34.0 - 45.0 % [facility] POC Calc Hgb 9.2(L) 11.2 - 15.7 g/dL [facility] Comment:The calculation of h emoglobin from hematocrit assumes a normal MCHC. POC Bgas Loc CC Lab [facility] Blood 05/12/2023 8:10 AM EDT 05/13/2023 12:00 PM EDT Alirio Hudson MD CHEMISTRY ORDERABLE S Performing Organization Address City/[facility]/ZIP Co de Phone Number [facility] [place] [address] * (ABNORMAL) Lactate, whole blood, send to lab ([facility] (05/12/2023 7:00 AM EDT) Lactate WB 2.4(H) 0.5 - 2.2 mmol/L [facility] Blood 05/12/2023 7:00 AM EDT 05/12/2023 7:09 AM EDT Narrative Resulting Agency Comment Spec In Lab Radha Hollins MD CHEMISTRY ORDERABL ES Performing Organization Address City/[facility]/ZIP Co de Phone Number [facility] [place] [address] * (ABNORMAL) Comprehensive metabolic panel (non-fasting) (05/12/2023 6:00 AM EDT) Glucose 167 65 - 199 mg/dL [facility] Comment:Diabetes: >=200 mg/d L plus symptoms Blood Urea Nitrogen 67(H) 8 - 18 mg/dL [facility] Creatinine 2.01(H) 0.70 - 1.20 mg/dL [facility] [...] Aspartate Aminotransferase 1,435(H) 0 - 30 unit/L [facility] Alanine Aminotransferase 1,174(H) 0 - 30 unit/L [facility] Alkaline Phosphatase 100 35 - 105 unit/L [facility] Bilirubin, Total 0.9 0.2 - 1.3 mg/dL [facility] Est Glomerular Filtration Rate 27(L) >=60 mL/min/1. 73 m?? [facility] [...] ORDERABL ES [facility] [place] [address] * (ABNORMAL) Coox2 (05/12/2023 5:08 AM EDT) pO2, Coox 24 mmHg [facility] Hgb Blood Gas 10.4(L) 11.7 - 15.5 g/dL [facility] Oxyhemoglobin, Coox 30.7 % [facility] Carboxyhemoglo bin, Coox 0.3 % [facility] Comment: Nonsmokers: 0.5-1.5% COHB Smokers: Variable, but usually less than 10% Toxic: 20-30% COHB Lethal: Greater than 60% COHB Methemoglobin, Coox 0.8 <=1.5 % [facility] Source Coox Mixed Venous [facility] Blood 05/12/2023 5:08 AM EDT 05/12/2023 5:08 AM EDT Radha Hollins MD POINT OF CARE TEST ORDERABLES Performing Organization Address City/[facility] Co de Phone Number [facility] [place] [address] * (ABNORMAL) Coox2 (05/12/2023 3:21 AM EDT) pO2, Coox 25 mmHg [facility] Hgb Blood Gas 10.8(L) 11.7 - 15.5 g/dL [facility] Oxyhemoglobin, Coox 32.7 % [facility] Carboxyhemoglo bin, Coox 0.3 % [facility] Comment: Nonsmokers: 0.5-1.5% COHB Smokers: Variable, but usually less than 10% Toxic: 20-30% COHB Lethal: Greater than 60% COHB Methemoglobin, Coox 0.7 <=1.5 % [facility] Source Coox Mixed Venous [facility] Blood 05/12/2023 3:21 AM EDT 05/12/2023 3:21 AM EDT Radha Hollins MD POINT OF CARE TEST ORDERABLES Performing Organization Address City/State/[facility] Co de Phone Number [facility] [place] [address] * (ABNORMAL) BLOOD GAS 2 ARTERIAL (05/12/2023 3:18 AM EDT) pH, Arterial 7.34(L) 7.35 - 7.45 [facility] PCO2, Arterial 30(L) 35 [...] 60% COHB Methemoglobin, Arterial 0.7 <=1.5 % [facility] Na Whole Blood 131(L) 135 - 145 mmol/L [facility] K Whole Blood 4.2 3.5 [...] Whole Blood 100 98 - 107 mmol/L [facility] Gluc Whole Bld 160 65 - 199 mg/dL [facility] Comment:Diabetes: >=200 mg/d L plus symptoms. Lactate WB 2.7(H) 0.5 - 2.2 mmol/L [facility] Flow Art 5.0 LPM [facility] Blood 05/12/2023 3:18 AM EDT 05/12/2023 3:18 AM EDT Radha Hollins MD POINT OF CARE TEST ORDERABLES [facility] [place] [address] * (ABNORMAL) Coox2 (05/12/2023 1:14 AM EDT) pO2, Coox 28 mmHg [facility] Hgb Blood Gas 10.9(L) 11.7 - 15.5 g/dL [facility] Oxyhemoglobin, Coox 37.3 % [facility] Carboxyhemoglo bin, Coox 0.3 % [facility] Comment: Nonsmokers: 0.5-1.5% COHB Smokers: Variable, but usually less than 10% Toxic: 20-30% COHB Lethal: Greater than 60% COHB Methemoglobin, Coox 0.5 <=1.5 % [facility] Source Coox Mixed Venous [facility] Blood 05/12/2023 1:14 AM EDT 05/12/2023 1:14 AM EDT Radha Hollins MD POINT OF CARE TEST ORDERABLES Performing Organization Address City/State/[facility] Co de Phone Number [facility] [place] [address] * (ABNORMAL) BLOOD GAS 2 ARTERIAL (05/12/2023 [...] Whole Blood 131(L) 135 - 145 mmol/L [facility] K Whole Blood 4.2 3.5 [...] Whole Blood 99 98 - 107 mmol/L [facility] Gluc Whole Bld 132 65 - 199 mg/dL [facility] Comment:Diabetes: >=200 mg/d L plus symptoms. Lactate WB 2.7(H) 0.5 - 2.2 mmol/L [facility] Flow Art 5.0 LPM [facility] Blood 05/12/2023 1:06 AM EDT 05/12/2023 1:06 AM EDT Radha Hollins MD POINT OF CARE TEST ORDERABLES [facility] [place] [address] * (ABNORMAL) Differential, Automated (05/12/2023 1:05 AM EDT) Neutrophil % 83.3 % [facility] Neutrophil Absolute 7.49(H) 1.70 - 6.10 x10(3)/mc L [facility] Lymph % 7.1 % [facility] Lymphocytes Abs 0.6(L) 0.9 - 3.2 x10(3)/mc L [facility] Monocyte % 8.9 % [facility] Monocyte Abs 0.8 0.3 - 0.9 x10(3)/mc L [facility] Eos % 0.0 % [facility] Eosinophils Abs 0.0 0.0 - 0.4 x10(3)/mc L [facility] Basophil % 0.1 % [facility] Baso Absolute 0.0 [...] ORDERABLE S [facility] [place] [address] * (ABNORMAL) Hemogram (05/12/2023 1:05 AM EDT) [...] Platelet Volume 10.3 7.6 - 12.9 fL [facility] NRBC% auto 0.0 % [facility] NRBC Absolute 0.000 0.000 - 0.000 x10(3)/mc L [facility] Blood 05/12/2023 1:05 AM EDT 05/12/2023 1:15 AM EDT Narrative Resulting Agency Comment Spec In Lab Gianni Fletcher MD HEMATOLOGY ORDERABLE S [facility] [address] [place] [address] * (ABNORMAL) Comprehensive metabolic panel (non-fasting) (05/12/2023 [...] Aspartate Aminotransferase 1,227(H) 0 - 30 unit/L [facility] Alanine Aminotransferase 1,097(H) 0 - 30 unit/L [facility] Alkaline Phosphatase 108(H) 35 [...] ORDERABL ES [facility] [place] [address] * XR Chest One View (05/12/2023 1:00 [...] have questions please contact the health care director rn that requested your imaging first. ? Electronically signed by: Will Rowe MD, [facility] ([phone]), at 05/12/2023 3:16 AM Narrative 05/12/2023 3:16 [...] who have questions please contactthe health care director rn that requested your imaging first. Radha Hollins MD IMG DX ORDERABLES * (ABNORMAL) Coox2 (05/12/2023 12:30 AM EDT) pO2, Coox 22 mmHg [facility] Hgb Blood Gas 10.9(L) 11.7 - 15.5 g/dL [facility] Oxyhemoglobin, Coox 25.1 % [facility] Carboxyhemoglo bin, Coox 0.3 % [facility] Comment: Nonsmokers: 0.5-1.5% COHB Smokers: Variable, but usually less than 10% Toxic: 20-30% COHB Lethal: Greater than 60% COHB Methemoglobin, Coox 1.4 <=1.5 % [facility] Source Coox Mixed Venous [facility] Blood 05/12/2023 12:3 0 AM EDT 05/12/2023 12:30 AM EDT Radha Hollins MD POINT OF CARE TEST ORDERABLES [facility] [place] [address] * XR Chest One View (05/11/2023 11:45 [...] have questions please contact the health care director rn that requested your imaging first. ? Electronically signed by: Will Rowe MD, [facility] ([phone]), at 05/11/2023 11:57 PM Narrative 05/11/2023 11:57 [...] who have questions please contactthe health care director rn that requested your imaging first. Electronically signed by: Will Rowe MD, [facility]([phone]), at 05/11/2023 11:57 PM Radha Hollins MD IMG DX ORDERABLES * (ABNORMAL) Lactate, whole blood, send to lab ([facility] (05/11/2023 7:40 PM EDT) Lactate WB 4.8(Critic al) 0.5 - 2.2 mmol/L [facility] Comment:Called by: IMM, Read back by: Magdalena Baires, Date/Time:05/11/23 19:54. Blood 05/11/2023 7:40 PM EDT 05/11/2023 7:49 PM EDT Narrative Resulting Agency Comment Spec In Lab Radha Hollins MD CHEMISTRY ORDERABL ES Performing Organization Address City/[facility]/ZIP Co de Phone Number [facility] [place] [address] * Urine culture (05/11/2023 7:22 PM EDT) [...] - GENE RAL ORDERABLES Performing Organization Address City/[facility]/ZIP Co de Phone Number [facility] [place] [address] * (ABNORMAL) Urinalysis Microscopic Exam (05/11/2023 7:22 [...] Agency Comment Spec In Lab Brody Kaplan HEALTH SCIENCES MANAGER URINE ORDERABLES [facility] [place] [address] * (ABNORMAL) Urinalysis with reflex Culture (05/11/2023 [...] Clear [facility] Specific [place] Urine Automated >=1.030(A) 1.005 - 1.030 [facility] Color, Urine Dipstick Yellow Yellow [facility] Reflex to Culture Yes [facility] Clean Catch Urine 05/11/2023 7:22 PM EDT 05/11/2023 7:31 PM EDT Narrative Resulting Agency Comment Spec In Lab Brody Kaplan HEALTH SCIENCES MANAGER URINE ORDERABLES [facility] [place] [address] * (ABNORMAL) pro-Brain Natriuretic Peptide (05/11/2023 7:11 PM EDT) NT-proBNP >35,000(H) <=124 pg/mL [facility] Blood 05/11/2023 7:11 PM EDT 05/11/2023 7:26 PM EDT Narrative Resulting Agency Comment Spec In Lab Radha Hollins MD CHEMISTRY ORDERABL ES Performing Organization Address City/[facility]/ZIP Co de Phone Number [facility] [place] [address] * (ABNORMAL) Lactate, whole blood, send to lab ([facility] (05/11/2023 2:47 PM EDT) Lactate WB 2.9(H) 0.5 - 2.2 mmol/L [facility] Blood 05/11/2023 2:47 PM EDT 05/11/2023 2:53 PM EDT Narrative Resulting Agency Comment Spec In Lab Juan Luis Gonzalez MD CHEMISTRY ORDERABLES Performing Organization Address [facility] Co de Phone Number [facility] [place] [address] * (ABNORMAL) CT Angiogram Abdomen & Pelvis [...] have questions please contact the health care director rn that requested your imaging first. ? Electronically signed by: Eileen Gomes MD, [facility] ([phone]), at 05/11/2023 2:42 PM Narrative 05/11/2023 2:42 [...] lesion. Resulting Agency Comment Unexpected Finding Antelmo Sharam MD IMG CT ORDERABLES * CT Cardiac [...] have questions please contact the health care director rn that requested your imaging first. ? Electronically signed by: Cullen Narayanan MD, [facility] ([phone]), at 05/11/2023 4:37 PM Narrative 05/11/2023 4:37 [...] 610 mm2 Circumference: 88 mm Calcification: Mild Rvpdzxf-xx-yvdoufkp height: Left: 6.2 mm Right: 5.8 mm THORACIC AORTA Description: Normal course and caliber. ??Mild diffuse atherosclerotic changes. No acute aortopathy noted. Golf [employer] Maker dimensions: Aortic root: 27.6 mm Max ascending aorta: 30.5 mm x 27.7 mm Suggested fluoroscopic angulation based on line extending through the nadirs of the three sinuses of Valsalva, set equidistant: ?? MACANESE ??9 degrees; cranial 7 degrees MITRAL: Mitral [...] 610 mm2 Circumference: 88 mm Calcification: Mild Hphpktm-kq-uakufpgu height: Left: 6.2 mm Right: 5.8 mm THORACIC AORTA Description: Normal course and caliber. Mild diffuse atheroscleroticchanges. No acute aortopathy noted. [employer] Maker dimensions: Aortic root: 27.6 mm Max ascending aorta: 30.5 mm x 27.7 mm Suggested fluoroscopic angulation based on line extending through thenadirs of the three sinuses of Valsalva, set equidistant: MACANESE 9 degrees; cranial 7 degrees MITRAL: Mitral [...] who have questions please contactthe health care director rn that requested your imaging first. Electronically signed by: Cullen Narayanan MD, [facility]([phone]), at 05/11/2023 4:37 PM Antelmo Sharma MD IMG CT ORDERABLES * (ABNORMAL) Lactate, whole blood, send to lab ([facility] (05/11/2023 9:29 AM EDT) [facility] Lactate WB 3.1(H) 0.5 - 2.2 mmol/L [facility] Blood 05/11/2023 9:29 AM EDT 05/11/2023 9:38 AM EDT Narrative Resulting Agency Comment Spec In Lab Juan Luis Gonzalez MD CHEMISTRY ORDERABLES [facility] [place] [address] * (ABNORMAL) Differential, Automated (05/11/2023 4:42 AM EDT) Pathologist [facility] Neutrophil % 78.1 % [facility] Neutrophil Absolute 5.46 1.70 - 6.10 x10(3)/mc L [facility] Lymph % 10.6 % [facility] Lymphocytes Abs 0.7(L) 0.9 - 3.2 x10(3)/mc L [facility] Monocyte % 9.6 % [facility] Monocyte Abs 0.7 0.3 - 0.9 x10(3)/mc L [facility] Eos % 0.0 % [facility] Eosinophils Abs 0.0 0.0 - 0.4 x10(3)/mc L [facility] Basophil % 0.4 % [facility] Baso Absolute 0.0 [...] Absolute 0.09(H) 0.00 - 0.04 x10(3)/ L [facility] Blood 05/11/2023 4:42 AM EDT 05/11/2023 4:49 AM EDT Narrative Resulting Agency Comment Spec In Lab Klaudia Reid MD HEMATOLOGY OR DERABLES Performing Organization Address City/State/[facility] Co de Phone Number [facility] [place] [address] * (ABNORMAL) Hemogram (05/11/2023 4:42 AM EDT) [...] of variation 12.7 11.5 - 14.1 % [facility] Mean Platelet Volume 10.1 7.6 - 12.9 fL [facility] NRBC% auto 0.0 % [facility] NRBC Absolute 0.000 0.000 - 0.000 x10(3)/mc L [facility] Blood 05/11/2023 4:42 AM EDT 05/11/2023 4:49 AM EDT Narrative Resulting Agency Comment Spec In Lab Klaudia Reid MD HEMATOLOGY OR DERABLES Performing Organization Address [facility] Co de Phone Number [facility] [place] [address] * Heparin (unfractionated) Level (05/11/2023 4:42 AM EDT) UF Heparin 0.46 IU/mL [facility] Comment: Heparin (anti-Xa) levels should [...] HEMATOLOGY ORDERAB LES Performing Organization Address [facility] Co de Phone Number [facility] [place] [address] * (ABNORMAL) Comprehensive metabolic panel (non-fasting) (05/11/2023 4:42 AM EDT) Glucose 143 65 - 199 mg/dL [facility] Comment:Diabetes: >=200 mg/d L plus symptoms Blood Urea Nitrogen 42(H) 8 - 18 mg/dL [facility] Creatinine 1.24(H) 0.70 - 1.20 mg/dL [facility] Sodium 134(L) 135 - 145 mmol/L [facility] Potassium 4.6 3.5 - 5.0 mmol/L [facility] [...] Protein, Total 7.2 6.1 - 8.0 g/dL [facility] Albumin 3.7 3.2 - 5.2 g/dL [facility] Aspartate Aminotransferase 144(H) 0 - [...] Performing Organization Address City/[facility]/ZIP Co de Phone Number [facility] [place] [address] * EKG 12 Lead (05/10/2023 1:16 PM EDT) Ventricular rate 118 BPM MUSE SYSTEM Atrial Rate 118 BPM MUSE SYSTEM P-R Interval 152 ms MUSE SYSTEM QRS Duration 104 ms MUSE SYSTEM Q-T Interval 316 ms MUSE SYSTEM QTC Calculated (Bezet) 442 ms MUSE SYSTEM Calculated P [place] 29 degrees MUSE SYSTEM Calculated R [place] 18 degrees MUSE SYSTEM Calculated T [place] -173 degrees MUSE SYSTEM INTERPRETATION Sinus tachycardia [...] Anterior leads Confirmed by MD Villareal Danette ([id number]) on 05/10/2023 8:47:46 PM MUSE SYSTEM 05/10/2023 1:16 PM EDT 05/10/2023 8:47 PM EDT Juan Luis Gonzalez MD ECG ORDERABLES Performing Organization Address City/[facility]/ZIP Co de Phone Number MUSE SYSTEM * Lactate, whole blood, send to lab ([facility] (05/10/2023 11:52 AM EDT) Lactate WB 1.8 0.5 - 2.2 mmol/L [facility] Blood 05/10/2023 11:5 2 AM EDT 05/10/2023 12:13 PM EDT Narrative Resulting Agency Comment Spec In Lab Juan Luis Gonzalez MD CHEMISTRY ORDERABLES Performing Organization Address City/[facility]/ZIP Co de Phone Number [facility] [place] [address] * XR Chest One View (05/10/2023 11:16 [...] have questions please contact the health care director rn that requested your imaging first. ? Electronically signed by: ALIX RUVALCABA MD, [facility] ([phone]), at 05/10/2023 1:25 PM Narrative 05/10/2023 1:25 [...] who have questions please contactthe health care director rn that requested your imaging first. Electronically signed by: ALIX RUVALCABA MD, [facility]([phone]), at 05/10/2023 1:25 PM Juan Luis Gonzalez MD IMG DX ORDERABLES * EKG 12 Lead (05/10/2023 7:59 AM EDT) Ventricular rate 115 BPM MUSE SYSTEM Atrial Rate 115 BPM MUSE SYSTEM P-R Interval 142 ms MUSE SYSTEM QRS Duration 102 ms MUSE SYSTEM Q-T Interval 322 ms MUSE SYSTEM QTC Calculated (Bezet) 445 ms MUSE SYSTEM Calculated P [place] 36 degrees MUSE SYSTEM Calculated R [place] 28 degrees MUSE SYSTEM Calculated T [place] -119 degrees MUSE SYSTEM INTERPRETATION Sinus tachycardia with frequent Premature ventricular complexes and Fusion complexes ST & T wave abnormality, consider lateral ischemia Abnormal ECG When compared with ECG of 08-MAY-2023 15:51, No significant change was found I personally reviewed the tracing and edited the fellows interpretation Confirmed by fellow MD Anitha, [facility] () on 05/11/2023 6:19:54 AM Confirmed by MD Tram, [place] ([id number]) on 05/11/2023 3:18:56 PM MUSE SYSTEM 05/10/2023 7:59 AM EDT 05/11/2023 3:18 PM EDT Radha Hollins MD ECG ORDERABLES MUSE SYSTEM * (ABNORMAL) Differential, Automated (05/10/2023 2:28 AM EDT) Neutrophil % 77.1 % [facility] Neutrophil Absolute 4.01 1.70 - 6.10 x10(3)/mc L [facility] Lymph % 14.0 % [facility] Lymphocytes Abs 0.7(L) 0.9 - 3.2 x10(3)/mc L [facility] Monocyte % 7.7 % [facility] Monocyte Abs 0.4 0.3 - 0.9 x10(3)/ L [facility] Eos % 0.4 % [facility] Eosinophils Abs 0.0 0.0 - 0.4 x10(3)/ L [facility] Basophil % 0.4 % [facility] Baso Absolute 0.0 0.0 - [...] [facility] Co de Phone Number [facility] [place] [address] * (ABNORMAL) Hemogram (05/10/2023 2:28 AM EDT) White Blood Cell 5.2 4.0 - 9.5 x10(3)/mc L [facility] Red Blood Cell 3.11(L) 4.00 - 5.21 x10(6)/ L [facility] [...] Hemoglobin Concentration 33.8 31.7 - 35.0 g/dL [facility] Platelet 151 145 - 357 x10(3)/mc L [facility] RDW Standard Deviation 44.9 37.0 - 46.0 fL [facility] RDW coefficient of variation 12.8 11.5 - 14.1 % [facility] Mean Platelet Volume 9.8 7.6 - 12.9 fL [facility] NRBC% auto 0.0 % [facility] NRBC Absolute 0.000 0.000 - 0.000 x10(3)/mc L [facility] Blood 05/10/2023 2:28 AM EDT 05/10/2023 2:57 AM EDT Narrative Resulting Agency Comment Spec In Lab Klaudia Reid MD HEMATOLOGY OR DERABLES Performing Organization Address City/State/[facility] Co de Phone Number [facility] [place] [address] * (ABNORMAL) Comprehensive metabolic panel (non-fasting) (05/10/2023 2:28 AM EDT) Glucose 100 65 - 199 mg/dL [facility] Comment:Diabetes: >=200 mg/d L plus symptoms Blood Urea Nitrogen 30(H) 8 - 18 mg/dL [facility] Creatinine 0.90 0.70 - 1.20 mg/dL [facility] Sodium 134(L) 135 - [...] questions. Chloride 102 98 - 107 mmol/L [facility] Carbon Dioxide 20(L) 22 - 31 mmol/L [facility] Anion Gap 12 5 - 15 mmol/L [facility] Calcium 9.3 8.5 - 10.5 mg/dL [facility] Protein, Total 6.4 6.1 - 8.0 g/dL [facility] Albumin 3.7 3.2 - 5.2 g/dL [facility] Aspartate Aminotransferase 24 0 - 30 unit/L [facility] Alanine Aminotransferase 14 0 - 30 unit/L [facility] Alkaline Phosphatase 70 35 - 105 unit/L [facility] Bilirubin, Total 0.5 0.2 - 1.3 mg/dL [facility] Est Glomerular Filtration Rate 70 >=60 mL/min/1. 73 m?? [facility] Comment: This patient's estimated [...] ORDERABL ES [facility] [place] [address] * Heparin (unfractionated) Level (05/10/2023 2:28 AM EDT) UF Heparin 0.37 IU/mL [facility] Comment: Heparin (anti-Xa) [...] Lab Radha Hollins MD [place] [address] * (ABNORMAL) Differential, Automated (05/09/2023 4:00 AM EDT) Neutrophil % 81.7 % [facility] Neutrophil Absolute 5.26 1.70 - 6.10 x10(3)/mc L [facility] Lymph % 10.7 % [facility] Lymphocytes Abs 0.7(L) 0.9 - 3.2 x10(3)/mc L [facility] Monocyte % 6.5 % [facility] Monocyte Abs 0.4 0.3 - 0.9 x10(3)/mc L [facility] Eos % 0.5 % [facility] Eosinophils Abs 0.0 0.0 - 0.4 x10(3)/mc L [facility] Basophil % 0.3 % [facility] Baso Absolute 0.0 0.0 - [...] Performing Organization Address City/[facility]/[place] [address] * (ABNORMAL) Hemogram (05/09/2023 4:00 AM EDT) White Blood Cell 6.4 4.0 - 9.5 x10(3)/mc L [facility] NRBC% auto 0.0 % [facility] NRBC Absolute 0.000 0.000 - 0.000 x10(3)/mc L [facility] Blood 05/09/2023 4:00 AM EDT 05/09/2023 4:19 AM EDT Narrative Resulting Agency Comment Spec In Lab Klaudia Reid MD HEMATOLOGY OR DERABLES Performing Organization Address City/State/[facility] Co de Phone Number [facility] [place] [address] * Heparin (unfractionated) Level (05/09/2023 4:00 AM EDT) UF Heparin 0.47 IU/mL [facility] Comment: Heparin (anti-Xa) [...] LES [facility] [place] [address] * (ABNORMAL) Comprehensive metabolic panel (non-fasting) (05/09/2023 4:00 AM EDT) Glucose 108 65 - 199 mg/dL [facility] Comment:Diabetes: >=200 mg/d L plus symptoms Blood Urea Nitrogen 31(H) 8 - 18 mg/dL [facility] Creatinine 1.03 0.70 - 1.20 mg/dL [facility] Sodium 137 135 - [...] LABORATORY Calcium 9.3 8.5 - 10.5 mg/dL [facility] Protein, Total 6.6 6.1 - 8.0 g/dL [facility] Albumin 3.8 3.2 - 5.2 g/dL [facility] Aspartate Aminotransferase 32(H) 0 - 30 unit/L [facility] Alanine Aminotransferase 18 0 - 30 unit/L [facility] Alkaline Phosphatase 78 35 [...] Performing Organization Address City/[facility]/ZIP Co de Phone Number [facility] [place] [address] * (ABNORMAL) pro-Brain Natriuretic Peptide (05/08/2023 4:00 PM EDT) NT-proBNP 25,503(H) <=124 pg/mL [facility] Blood Venous Draw / Unknown 05/08/2023 4:00 PM EDT 05/08/2023 4:25 PM EDT Narrative Resulting Agency Comment Spec In Lab Juan Luis Gonzalez MD CHEMISTRY ORDERABLES [facility] [place] [address] * Magnesium (05/08/2023 4:00 PM EDT) Magnesium 0.82 0.69 - 1.07 mmol/L [facility] Blood 05/08/2023 4:00 PM EDT 05/08/2023 4:06 PM EDT Narrative Resulting Agency Comment Spec In Lab Enrique Chua MD CHEMISTRY ORDERABLES Performing Organization Address [facility] Co de Phone Number [facility] [place] [address] * Potassium (05/08/2023 4:00 PM EDT) Potassium 3.9 3.5 - 5.0 mmol/L [facility] Comment: Please note: ??Patients [...] MD CHEMISTRY ORDERABL ES Performing Organization Address [facility] de Phone Number [facility] [place] [address] * Heparin (unfractionated) Level (05/08/2023 4:00 PM EDT) UF Heparin 0.43 IU/mL [facility] Comment: Heparin (anti-Xa) [...] HEMATOLOGY ORDERAB LES Performing Organization Address [facility] Co de Phone Number [facility] [place] [address] * EKG 12 Lead (05/08/2023 3:51 PM EDT) Ventricular rate 98 BPM MUSE SYSTEM Atrial Rate 98 BPM MUSE SYSTEM P-R Interval 150 ms MUSE SYSTEM QRS Duration 102 ms MUSE SYSTEM Q-T Interval 358 ms MUSE SYSTEM QTC Calculated (Bezet) 457 ms MUSE SYSTEM Calculated P [place] 38 degrees MUSE SYSTEM Calculated R [place] 48 degrees MUSE SYSTEM Calculated T [place] -112 degrees MUSE SYSTEM INTERPRETATION Sinus rhythm with frequent and consecutive Premature ventricular and fusion complexes Septal infarct , age undetermined ST & T wave abnormality, consider anterolateral ischemia Abnormal ECG When compared with ECG of 09-NOV-2022 11:17, T wave inversion now evident in Anterolateral leads Confirmed by MD Harshil, Enrique Bell ([id number]) on 05/10/2023 8:11:46 AM MUSE SYSTEM 05/08/2023 3:51 PM EDT 05/10/2023 8:11 AM EDT Radha Hollins MD ECG ORDERABLES MUSE SYSTEM * (ABNORMAL) Differential, Automated (05/08/2023 11:38 AM EDT) Pathologist [facility] Neutrophil % 71.3 % [facility] Neutrophil Absolute 2.91 1.70 - 6.10 x10(3)/mc L [facility] Lymph % 19.1 % [facility] Lymphocytes Abs 0.8(L) 0.9 - 3.2 x10(3)/mc L [facility] Monocyte % 9.0 % [facility] Monocyte Abs 0.4 0.3 - 0.9 x10(3)/mc L [facility] Eos % 0.2 % [facility] Eosinophils Abs 0.0 0.0 - 0.4 x10(3)/mc L [facility] Basophil % 0.2 % [facility] Baso Absolute 0.0 0.0 - [...] Absolute 0.01 0.00 - 0.04 x10(3)/ L [facility] Blood 05/08/2023 11:3 8 AM EDT 05/08/2023 11:44 AM EDT Narrative Resulting Agency Comment Spec In Lab Lincoln Sal MD HEMATOLOGY ORDERA BLES [facility] [place] [address] * (ABNORMAL) Hemogram (05/08/2023 11:38 AM EDT) White Blood Cell 4.1 4.0 - 9.5 x10(3)/[facility] Red Blood Cell 3.05(L) 4.00 - 5.21 x10(6)/[facility] Hemoglobin 10.2(L) 11.7 - 15.5 [...] HOSPITAL LABORATORY Platelet 136(L) 145 - 357 x10(3)/[facility] RDW Standard Deviation 44.3 37.0 - 46.0 fL [facility] RDW coefficient of variation 12.6 11.5 - 14.1 % [facility] Mean Platelet Volume 9.4 7.6 - 12.9 fL [facility] NRBC% auto 0.0 % [facility] NRBC Absolute 0.000 0.000 - 0.000 x10(3)/ L [facility] Blood 05/08/2023 11:3 8 AM EDT 05/08/2023 11:44 AM EDT Narrative Resulting Agency Comment Spec In Lab Lincoln Sal MD HEMATOLOGY ORDERA BLES Performing Organization Address [facility] Co de Phone Number [facility] [place] [address] * TSH (05/08/2023 11:38 AM EDT) Thyroid Stimulating Hormone 1.27 0.27 - 4.20 mcIU/mL [facility] Comment: Reference Interval (mcIU/mL): Females: ??First Trimester: 0.23-3.88 ??Second Trimester: 0.22-3.90 ??Third Trimester: 0.44-4.66 Blood 05/08/2023 11:3 8 AM EDT 05/08/2023 11:44 AM EDT Narrative Resulting Agency Comment Spec In Lab Enrique Chua MD CHEMISTRY ORDERABLES Performing Organization Address [facility] Co de Phone Number [facility] [place] [address] * (ABNORMAL) Phosphorus (05/08/2023 11:38 AM EDT) Phosphorus 4.7(H) 2.5 - 4.5 mg/dL [facility] Blood 05/08/2023 11:3 8 AM EDT 05/08/2023 11:44 AM EDT Narrative Resulting Agency Comment Spec In Lab Enrique Chua MD CHEMISTRY ORDERABLES Performing Organization Address [facility] Co de Phone Number [facility] [place] [address] * Magnesium (05/08/2023 11:38 AM EDT) Magnesium 0.76 0.69 - 1.07 mmol/L [facility] Blood 05/08/2023 11:3 8 AM EDT 05/08/2023 11:44 AM EDT Narrative Resulting Agency Comment Spec In Lab Enrique Chua MD CHEMISTRY ORDERABLES Performing Organization Address [facility] Co de Phone Number [facility] [place] [address] * (ABNORMAL) Basic Metabolic Panel (non-fasting) (05/08/2023 [...] Performing Organization Address City/[facility] Co de Phone Number [facility] [place] [address] * ECHO COMPLETE (05/08/2023 11:02 AM EDT) EF 25 HEARTLAB SYSTEM Anatomical Region Laterality Modality Cardiac Other 05/08/2023 10:0 3 AM EDT Narrative 05/08/2023 11:51 AM EDT ? Echocardiogram Report Name: PURNIMA THACKER ?Study Date: 05/08/2023 10:03 AMBP: 92/64 mmHg ? Patient Location: [facility]CC^CV29^A : 1955 ? Height: 155 cm ? Account: [id number] Age: 67 yrs ? Weight: 78 kg Gender: Female ?BSA: 1.8 m2 Ordering Physician: ENRIQUE CHUA Referring Physician: MARIO ALBERTO CHIN Performed By: CHUCKIE Cacnhola Reason For Study: SAVR Stenosis Exam Location: [facility]. Interpretation Summary -Left ventricle is severely [...] worsening stenosis. Mitral regurgitation is similar. Procedure Complete-89118. Satisfactory quality. There is normal sinus rhythm. [...] mmHg Patient Location:[facility]^CV29^A : 1955 Height: 155 cm Account: [id number] Age: 67 yrs Weight: 78 kg Gender: Female BSA: 1.8 m2 Ordering Physician: ENRIQUE CHUA Referring Physician: MARIO ALBERTO CHIN Performed By: CHUCKIE Canchola Reason For Study: SAVR Stenosis Exam Location: [facility]. Interpretation Summary -Left ventricle is severely [...] suggestsworsening stenosis. Mitral regurgitation is similar. Procedure Complete-[id number]. Satisfactory quality. There is normal sinus rhythm. 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
--- OUTSIDE RECORDS SUMMARY | 2024-07-13 14:11 | XMS_ITS | Encounter Summary ---
Author Organization [facility] Address [facility] [place] [address] Care Team Providers Care Fisher Purse Seine Name Role Phone Magdalena Acosta MD Primary Care Provider [phone] Reason for Visit * Consultation (Routine) - Closed Specialty Diagnoses / Procedures Referred By Contac t Referred To Contact Rheumatology Diagnoses Weakness Kyra Haas MD [facility] [address] [place] [address] [facility] Rheumatology [address] [place] [phone] Referral ID Status Reason Start Date Expiration Date V isits Requested Visits Authorized [id number] Closed Consult, Test & Treat PCP Updated and/or Approved 02/25/2023 02/25/2024 6 6 Encounter Details Date Type Department Care Team (Late st Contact Info) Description 03/18/2023 1:00 PM EDT Office [place] [address] Kia Viramontes, [facility] [place] [address] Magdalena Peralta MD [facility] [place] [address] Positive FRANCISCO (antinuclear antibody) Social [...] 1:5120 speckled VIC negative Myositis panel with TEA TASTER ab 149.1 (positive) Anti U1RNP IgG 119 [...] a chair without assistance of upper extremities. It Data Architect strength 3+/5 bilaterally; otherwise large muscle groups [...] Dr. Wander Peralta MD Rheumatology Fellow Pager: [phone] CC: Kyra Haas * Kia Viramontes DO - 03/18/2023 1:00 PM EDT ATTENDING ADDENDUM The patient's history was reviewed, and I interviewed and examined the patient with Dr. Peralta. Catalina with her summary, findings, and plan. documented in this encounter Plan of Treatment Upcoming Encounters Date Type Department Care Team (Late st Contact Info) Description 11/02/2024 12:00 PM EDT Appointment [place] [address] 11/02/2024 1:00 PM EDT Office [place] [address] Magdalena Peralta MD [facility] [place] [address] 03/01/2025 4:15 PM EDT Office Visit Dermatology at [place] [address] [facility] [place] [address] Marek Bonilla MD [address] [facility] [place] [address] documented as of this encounter Results * Comprehensive metabolic panel (non-fasting) (03/18/2023 2:14 PM EDT) [facility] Glucose 93 65 - 199 mg/dL [facility] Comment:Diabetes: >=200 mg/d L plus symptoms Blood Urea Nitrogen 18 8 - 18 mg/dL [facility] Creatinine 0.99 0.70 - 1.20 mg/dL [facility] Sodium 141 135 - 145 mmol/L [facility] Potassium 4.5 3.5 - 5.0 mmol/L [facility] Comment: Please note: ??Patients with WBC >100,000 may have falsely elevated Potassium levels. ??For accurate Potassium quantification in these patients send serum separator tube (gold top) for subsequent determinations. ??Contact the Clinical Chemistry Laboratory if there are any questions. Chloride 106 98 - 107 mmol/L [facility] Carbon Dioxide 24 22 - 31 mmol/L [facility] Anion Gap 11 5 - 15 mmol/L [facility] Calcium 10.0 8.5 - 10.5 mg/dL [facility] Protein, Total 7.3 6.1 - 8.0 g/dL [facility] Albumin 4.3 3.2 - 5.2 g/dL [facility] Aspartate Aminotransferase 26 0 - 30 unit/L [facility] Alanine Aminotransferase 11 0 - 30 unit/L [facility] Alkaline Phosphatase 91 35 - 105 unit/L [facility] Bilirubin, Total 0.4 0.2 - 1.3 mg/dL [facility] Est Glomerular Filtration Rate 62 >=60 mL/min/1. 73 m?? [facility] Comment: This patient's estimated [...] DO CHEMISTRY ORDERABL ES Performing Organization Address City/State/[facility] Co de Phone Number [facility] [place] [address] * (ABNORMAL) FRANCISCO Ab by IFA (03/18/2023 2:14 PM EDT) FRANCISCO Ab Screen Test ? Result ?Flag ??Unit ??RefValue Antinuclear Ab, HEp-2 ?Positive 1:2560 ??@ ?<1:80 (Negative) ??Substrate, S ? ADDITIONAL INFORMATION --------- ?Method: Immunofluorescence using HEp-2 cellular substrate. ??FRANCISCO Titer: ? 1:2560 ??FRANCISCO Pattern: ? Speckled ?Test Performed by: ?[facility] ?[address] [place] [address] ?Supervisor Home Economics: Raymond Chaudhry M.D. Ph.D.; CLIA# [id number] ([id number]) [facility] Blood 03/18/2023 2:14 PM EDT 03/18/2023 3:02 PM EDT Narrative Resulting Agency Comment Spec In Lab Kia Viramontes DO CHEMISTRY ORDERABL ES [facility] [place] [address] * DNA Antibody (Double-Stranded) (03/18/2023 2:14 PM EDT) dsDNA Ab <0.6 <=15.0 IU/mL [facility] Comment: <10 negative 10-15 equivocal >15 positive This dsDNA antibody result was generated using a fluoroenzyme immunoassay on the Teneros 250 analyzer. This quantitative test is designed to detect IgG antibodies directed against double stranded DNA in human serum. The presence of antibodies that recognize dsDNA is a highly specific marker for systemic lupus erythematosus. Please note that as of 05/26/2022 that this testing is performed by the Special Chemistry Laboratory at [facility]. This change in testing location is associated with a change is testing method and reference intervals. Please review the results of this test in association with the posted reference intervals. Blood 03/18/2023 2:14 PM EDT 03/19/2023 7:19 AM EDT Narrative Resulting Agency Comment Spec In Lab Kia Viramontes DO LAB SEND OUT ORDER JODIE Performing Organization Address City/[facility] Co de Phone Number [facility] [place] [address] * CK (03/18/2023 2:14 PM EDT) Creatine Kinase 38 0 - 160 unit/L [facility] Blood 03/18/2023 2:14 PM EDT 03/18/2023 2:24 PM EDT Narrative Resulting Agency Comment Spec In Lab Kia Viramontes DO CHEMISTRY ORDERABL ES Performing Organization Address [facility] Co de Phone Number [facility] [place] [address] * C4 Complement (03/18/2023 2:14 PM EDT) Complement C4 30 10 - 40 mg/dL [facility] Blood 03/18/2023 2:14 PM EDT 03/18/2023 2:24 PM EDT Narrative Resulting Agency Comment Spec In Lab Kia Viramontes DO CHEMISTRY ORDERABL ES Performing Organization Address [facility] de Phone Number [facility] [place] [address] * C3 Complement (03/18/2023 2:14 PM EDT) Complement C3 142 90 - 180 mg/dL [facility] Blood 03/18/2023 2:14 PM EDT 03/18/2023 2:24 PM EDT Narrative Resulting Agency Comment Spec In Lab Kia Viramontes DO CHEMISTRY ORDERABL ES Performing Organization Address [facility] Co de Phone Number [facility] [place] [address] * CRP, acute inflammation (03/18/2023 2:14 PM EDT) C-Reactive Protein 3.0 <=4.9 mg/L [facility] Blood 03/18/2023 2:14 PM EDT 03/18/2023 2:24 PM EDT Narrative Resulting Agency Comment Spec In Lab Kia Viramontes DO CHEMISTRY ORDERABL ES Performing Organization Address [facility] Co de Phone Number [facility] [place] [address] * (ABNORMAL) Sedimentation rate (03/18/2023 2:14 PM EDT) Sedimentation Rate Automated 68(H) 2 - 39 mm/hr [facility] Comment: Effective July 12, 2019 new capillary photometric technology has resulted in a change in reference ranges. It is recommended that each ESR result be reviewed with its own age appropriate reference range. Blood 03/18/2023 2:14 PM EDT 03/18/2023 2:24 PM EDT Narrative Resulting Agency Comment Spec In Lab Kia Viramontes DO HEMATOLOGY ORDERAB LES Performing Organization Address [facility] Co de Phone Number [facility] [place] [address] documented in this encounter Visit Diagnoses Diagnosis Positive FRANCISCO (antinuclear antibody) Other and unspecified nonspecific immunological findings documented in this encounter Care Teams Fisher Purse Seine Relationship Specialty Start Date End Date Magdalena Acosta MD [address] [place] [address] PCP - General Family Medicine 02/05/23 documented as of this encounter
--- OUTSIDE RECORDS SUMMARY | 2024-07-13 14:11 | XMS_ITS | Encounter Summary ---
Author Organization [facility] [place] [address] Care Team Providers Care Bead Wire Insulator Name Role Phone Magdalena Acosta MD Primary Care Provider [phone] Encounter Details Date Type Department Care Team (Latest Contact Info) Description 02/05/2023 9:33 PM EDT - 02/05/2023 11:59 PM EDT Hospital [place] [phone] Discharge Disposition: Home Social History Tobacco Use [...] 11/02/2024 12:00 PM EDT Appointment [place] [address] 11/02/2024 1:00 PM EDT Office [place] [address] Magdalena Peralta MD [facility] [place] [address] 03/01/2025 4:15 PM EDT Office Visit Dermatology at [place] [address] [facility] [place] [address] Marek Bonilla MD [address] [facility] [address] [place] [address] documented as of this encounter Procedures Procedure Name Priority Date/Time Associated Diagnosis Comments SURGICAL PATHOLOGY REPORT Routine 02/05/2023 3:00 PM EDT documented in this encounter Results * Surgical Pathology Report (02/05/2023 3:00 PM EDT) Final Diagnosis [id number] ? Location: [facility]W The signing pathologist has (i) examined the relevant preparation(s) for the specimen(s) and (ii) rendered or confirmed the diagnosis(es). . ?Surgical Pathology DIAGNOSIS Left upper back, skin punch biopsy: - ??Compound dysplastic ??melanocytic nevus with moderate atypia, transected at peripheral specimen edges ?? (see discussion) Electronically signed by: ?Vanna CULP, Jesse Shields Verified: ??02/16/2023 8:04 ?? Dermatopathologist Performed at: ??-[facility] Dept. of Pathology, [place] [address] Shank Archer: Kunal Rubi MD, AP, ??CLIA Certificate: [id number] DISCUSSION If there is an obvious clinical [...] EDT Marek Bonilla MD PATHOLOGY/CYTOLOGY [facility] [place] [address] [facility] [place] [address] documented in this encounter Visit Diagnoses Not on filedocumented in this encounter Care Teams Bead Wire Insulator Relationship Specialty Start Date End Date Magdalena Acosta MD [address] [place] [address] PCP - General Family Medicine 02/05/23 documented as of this encounter
--- OUTSIDE RECORDS SUMMARY | 2024-07-13 14:11 | XMS_ITS | Encounter Summary ---
Author Organization [facility] [place] [address] Care Team Providers Care Color Weigher Name Role Phone Magdalena Acosta MD Primary Care Provider [phone] Encounter Details Date Type Department Care Team (Late st Contact Info) Description 02/17/2023 2:00 PM EDT Office [place] [address] Alirio Esparza MD Aortic valve stenosis, etiology [...] PM EDT Appoint[place] [address] 11/02/2024 1:00 PM EDT Office [place] [address] Magdalena Peralta MD [facility] [place] [address] 03/01/2025 4:15 PM EDT Office Visit Dermatology at [place] [address] [place] [address] Marek Bonilla MD [address] [facility] [place] [address] documented as of this encounter Visit Diagnoses Diagnosis Aortic valve stenosis, etiology of cardiac valve disease unspecified documented in this encounter Care Teams Color Weigher Relationship Specialty Start Date End Date Magdalena Acosta MD [address] [place] [address] PCP - General Family Medicine 02/05/23 documented as of this encounter
--- OUTSIDE RECORDS SUMMARY | 2024-07-13 14:11 | XMS_ITS | Encounter Summary ---
Author Organization [place] [address] Care Team Providers Care Polygraph Technician Name Role Phone Magdalena Acosta MD Primary Care Provider [phone] Encounter Details Date Type Department Care Team (Late st Contact Info) Description 05/08/2023 [place] [address] Luis Felipe Ott MD [facility] [place] [address] Social History Tobacco Use Types Packs/Day Years [...] 0426 Referring Provider: Nitesh Baltazar Patient Location: [facility] Presenting Symptoms per OSH: [...] diuresis with IV furosemide 20 x 1 ([id number] at rheumatology appointment), SpO2 85% on RA -> 95% on 2L NC, HR 120s. Examination significant for decreased breath sounds at the bases. Pertinent Diagnostic Findings: CBC - Hgb 10.5 CMP - Cr 1.1 BNP 83938 HsTrop 1358 Lactate 1.6 D-dimer 1183, CTPE [...] examined this patient. Luis Felipe Ott MD Area Field Person Received a call from provider emergently at 715am. Mentating well and BP 87/53. HR 108 and diursingwell. They were about to start phenylephrine which I stressed was not a good option given concern for severe and increasing afterload. She is warm on exam, mentating and urinating and we do not need to amrit a BP if those things remain stable. Nico Segura, PGY-6 Area Field Person [id number] documented in this encounter Plan of Treatment Upcoming Encounters Date Type Department Care Team (Late st Contact Info) Description 11/02/2024 12:00 PM EDT Appointment [place] [address] 11/02/2024 1:00 PM EDT Office [place] [address] Magdalena Peralta MD [facility] [address] [place] [address] 03/01/2025 4:15 PM EDT Office Visit Dermatology at [place] [address] [facility] [address] [place] [address] Marek Bonilla MD [address] [facility] [facility] [address], [address] [place] [address] documented as of this encounter Visit Diagnoses Not on filedocumented in this encounter Care Teams Polygraph Technician Relationship Specialty Start Date End Date Magdalena Acosta MD [address] [place] [address] PCP - General Family Medicine 02/05/23 documented as of this encounter
--- OUTSIDE RECORDS SUMMARY | 2024-07-13 14:11 | XMS_ITS | Encounter Summary ---
Author [facility] [place] [id number] Care Team Providers Care Housekeeper/Custodian/Laundry Worker Name Role Phone Magdalena Acosta MD Primary Care Provider [phone] Encounter Details Date Type Department Care Team (Late st Contact Info) Description 03/29/2023 Orders Only Cardiology at [place] [phone] Ranjan Delgado MD [facility] [place] [address] Severe aortic stenosis (Primary Dx) Social History [...] PM EDT Appoint[place] [address] 11/02/2024 1:00 PM EDT Office [place] [address] Magdalena Peralta MD [facility] [place] [address] 03/01/2025 4:15 PM EDT Office Visit Dermatology at [place] [address] [facility] [place] [address] Marek Bonilla MD [address] [facility] [address] [place] [address] Scheduled Orders Name Type Priority Associated Diagnoses [...] disorders documented in this encounter Care Teams Housekeeper/Custodian/Laundry Worker Relationship Specialty Start Date End Date Magdalena Acosta MD [address] [place] [address] PCP - General Family Medicine 02/05/23 documented as of this encounter
--- OUTSIDE RECORDS SUMMARY | 2024-07-13 14:11 | XMS_ITS | Encounter Summary ---
Author Organization [facility] Address [facility] [place] [address] Care Team Providers Care Concrete Gun Operator Name Role Phone Magdalena Acosta MD Primary Care Provider [phone] Encounter Details Date Type Department Care Team (Late st Contact Info) Description 04/27/2023 3:00 PM EDT Office [place] [address] Magdalena Peralta MD [facility] DR [place] [address] Mixed connective tissue disease Social History Tobacco [...] 1:5120 speckled; VIC negative; Myositis panel with WHIP OPERATOR ab 149.1 (positive); Anti U1RNP IgG [...] 12:00 PM EDT Appointment [place] [address] 11/02/2024 1:00 PM EDT Office [place] [address] Magdalena Peralta MD [facility] [address] [place] [address] 03/01/2025 4:15 PM EDT Office Visit Dermatology at [place] [address] [facility] [place] [phone] Marek Bonilla MD [address] [facility] [facility] [address], [address] [address] documented as of this encounter Visit Diagnoses Diagnosis Mixed connective tissue disease Other specified diffuse disease of connective tissue documented in this encounter Care Teams Concrete Gun Operator Relationship Specialty Start Date End Date Magdalena Acosta MD [address] [place] [address] PCP - General Family Medicine 02/05/23 documented as of this encounter
--- OUTSIDE RECORDS SUMMARY | 2024-07-13 14:11 | XMS_ITS | Encounter Summary ---
Author Organization [facility] [place] [address] Care Team Providers Care Cable Ferryboat Operator Name Role Phone Magdalena Acosta MD Primary Care Provider [phone] Encounter Details Date Type Department Care Team [...] PM EDT Appointment [place] [address] 11/02/2024 1:00 PM EDT Office [place] [address] Magdalena Peralta MD [facility] [place] [address] 03/01/2025 4:15 PM EDT Office Visit Dermatology at [address] [place] [address] Marek Bonilla MD [address] [facility] [place] [address] documented as of this encounter Visit Diagnoses Not on filedocumented in this encounter Care Teams Cable Ferryboat Operator Relationship Specialty Start Date End Date Magdalena Acosta MD [address] [place] [address] PCP - General Family Medicine 02/05/23 documented as of this encounter
--- OUTSIDE RECORDS SUMMARY | 2024-07-13 14:11 | XMS_ITS | Encounter Summary ---
Author Organization [facility] Address [facility] Erika lópez[place]yl[place] [address] Care Team Providers Care Certified Juvenile Probation Officer Name Role Phone Magdalena Acosta MD Primary Care Provider [phone] Encounter Details Date Type Department Care Team (Latest Contact Info) Description 03/18/2023 2:30 PM EDT Laboratory Appointment Lab [address] [address] Positive FRANCISCO (antinuclear antibody) Social [...] 12:00 PM EDT Appointment [place] [address] 11/02/2024 1:00 PM EDT Office [place] [address] Magdalena Peralta MD [facility] [place] [address] 03/01/2025 4:15 PM EDT Office Visit Dermatology at [address] [address] Marek Bonilla MD [address], [place] [address] documented as of this encounter Procedures Procedure [...] 2:14 PM EDT) Neutrophil % 71.2 % [facility] Neutrophil Absolute 2.26 1.70 - 6.10 x10(3)/mc L [facility] Lymph % 18.2 % [facility] Lymphocytes Abs 0.6(L) 0.9 - 3.2 x10(3)/ L [facility] Monocyte % 9.7 % [facility] Monocyte Abs 0.3 0.3 - 0.9 x10(3)/ L [facility] Eos % 0.3 % [facility] Eosinophils Abs 0.0 0.0 - 0.4 x10(3)/ L [facility] Basophil % 0.6 % [facility] Baso Absolute 0.0 0.0 - 0.1 x10(3)/ L [facility] Immature Gran % 0.00 % [facility] Comment: Immature granulocytes(IG's)percentage and absolute count will include metamyelocytes, myelocytes, and promyelocytes. Blood smears from CBCs yielding IG's will be scanned manually for concordance. If this scan disagrees with the automated IG or if promyelocytes are noted, a manual differential will be performed. Immature Gran Absolute 0.00 0.00 - 0.04 x10(3)/ L [facility] Blood 03/18/2023 2:14 PM EDT 03/18/2023 2:24 PM EDT Narrative Resulting Agency Comment Spec In Lab Magdalena Peralta MD HEMATOLOGY ORDERABLE S Performing Organization Address City/State/[facility] Co de Phone Number [facility] [place] [address] * (ABNORMAL) Hemogram (03/18/2023 2:14 PM EDT) White Blood Cell 3.2(L) 4.0 - 9.5 x10(3)/[facility] Red Blood Cell 3.44(L) 4.00 - 5.21 x10(6)/ L [facility] Hemoglobin 11.1(L) 11.7 - 15.5 g/dL [facility] Hematocrit 32.9(L) 35.7 - 45.8 % [facility] Mean Cell Volume 95.6(H) 82.6 - 94.4 fL [facility] Mean Cell Hemoglobin 32.3(H) 27.1 - 32.0 pg [facility] Mean Cell Hemoglobin Concentration 33.7 31.7 - 35.0 g/dL [facility] Platelet 144(L) 145 - 357 x10(3)/mc L [facility] RDW Standard Deviation 42.6 37.0 - 46.0 fL [facility] RDW coefficient of variation 12.3 11.5 - 14.1 % [facility] Mean Platelet Volume 9.4 7.6 - 12.9 fL [facility] NRBC% auto 0.0 % [facility] NRBC Absolute 0.000 0.000 - 0.000 x10(3)/mc L [facility] Blood 03/18/2023 2:14 PM EDT 03/18/2023 2:24 PM EDT Narrative Resulting Agency Comment Spec In Lab Magdalena Peralta MD HEMATOLOGY ORDERABLE S Performing Organization Address City/[facility]/ZIP Co de Phone Number [facility] [place] [address] * (ABNORMAL) Sedimentation rate (03/18/2023 2:14 PM EDT) Sedimentation Rate Automated 68(H) 2 - 39 mm/hr [facility] Comment: Effective July 12, 2019 new capillary photometric technology has resulted in a change in reference ranges. It is recommended that each ESR result be reviewed with its own age appropriate reference range. Blood 03/18/2023 2:14 PM EDT 03/18/2023 2:24 PM EDT Narrative Resulting Agency Comment Spec In Lab Kia Viramontes DO HEMATOLOGY ORDERAB LES [facility] [place] [address] * CRP, acute inflammation (03/18/2023 2:14 PM EDT) C-Reactive Protein 3.0 <=4.9 mg/L [facility] Blood 03/18/2023 2:14 PM EDT 03/18/2023 2:24 PM EDT Narrative Resulting Agency Comment Spec In Lab Kia D Wander DO CHEMISTRY ORDERABL ES Performing Organization Address [facility] Co de Phone Number [facility] [place] [address] * C3 Complement (03/18/2023 2:14 PM EDT) Complement C3 142 90 - 180 mg/dL [facility] Blood 03/18/2023 2:14 PM EDT 03/18/2023 2:24 PM EDT Narrative Resulting Agency Comment Spec In Lab Kia D Wander DO CHEMISTRY ORDERABL ES Performing Organization Address [facility] de Phone Number [facility] [place] [address] * C4 Complement (03/18/2023 2:14 PM EDT) Complement C4 30 10 - 40 mg/dL [facility] Blood 03/18/2023 2:14 PM EDT 03/18/2023 2:24 PM EDT Narrative Resulting Agency Comment Spec In Lab Kia D Wander DO CHEMISTRY ORDERABL ES Performing Organization Address [facility] de Phone Number [facility] [place] [address] * CK (03/18/2023 2:14 PM EDT) Creatine Kinase 38 0 - 160 unit/L [facility] Blood 03/18/2023 2:14 PM EDT 03/18/2023 2:24 PM EDT Narrative Resulting Agency Comment Spec In Lab Kia D Wander DO CHEMISTRY ORDERABL ES Performing Organization Address [facility] Co de Phone Number [facility] [place] [address] * DNA Antibody (Double-Stranded) (03/18/2023 2:14 PM EDT) dsDNA Ab <0.6 <=15.0 IU/mL [facility] Comment: <10 negative 10-15 equivocal >15 positive This dsDNA antibody result was generated using a fluoroenzyme immunoassay on the HSystem 250 analyzer. This quantitative test is designed [...] DO LAB SEND OUT ORDER JODIE [facility] [place] [address] * (ABNORMAL) FRANCISCO Ab by IFA (03/18/2023 2:14 PM EDT) FRANCISCO Ab Screen Test ? Result ?Flag ??Unit ??RefValue Antinuclear Ab, HEp-2 ?Positive 1:2560 ??@ ?<1:80 (Negative) ??Substrate, S ? ADDITIONAL INFORMATION --------- ?Method: Immunofluorescence using HEp-2 cellular substrate. ??FRANCISCO Titer: ? 1:2560 ??FRANCISCO Pattern: ? Speckled ?Test Performed by: ?[facility] ?[address] [place] [address] ?Driller Multiple Spindle: Raymond Chaudhry M.D. Ph.D.; CLIA# [id number] ([id number]) [facility] Blood 03/18/2023 2:14 PM EDT 03/18/2023 3:02 PM EDT Narrative Resulting Agency Comment Spec In Lab Kia Viramontes DO CHEMISTRY ORDERABL ES Performing Organization Address City/State/[facility] Co de Phone Number [facility] [place] [address] * Comprehensive metabolic panel (non-fasting) (03/18/2023 2:14 PM EDT) Glucose 93 65 - 199 mg/dL [facility] Comment:Diabetes: >=200 mg/d L plus symptoms Blood Urea Nitrogen 18 8 - 18 mg/dL [facility] Creatinine 0.99 0.70 - 1.20 mg/dL [facility] Sodium 141 135 - 145 mmol/L [facility] Potassium 4.5 3.5 - 5.0 mmol/L [facility] Comment: Please note: ??Patients with WBC >100,000 may have falsely elevated Potassium levels. ??For accurate Potassium quantification in these patients send serum separator tube (gold top) for subsequent determinations. ??Contact the Clinical Chemistry Laboratory if there are any questions. Chloride 106 98 - 107 mmol/L [facility] Carbon Dioxide 24 22 - 31 mmol/L [facility] Anion Gap 11 5 - 15 mmol/L [facility] Calcium 10.0 8.5 - 10.5 mg/dL [facility] Protein, Total 7.3 6.1 - 8.0 g/dL [facility] Albumin 4.3 3.2 - 5.2 g/dL [facility] Aspartate Aminotransferase 26 0 - 30 unit/L [facility] Alanine Aminotransferase 11 0 - 30 unit/L [facility] Alkaline Phosphatase 91 35 - 105 unit/L [facility] Bilirubin, Total 0.4 0.2 - 1.3 mg/dL [facility] Est Glomerular Filtration Rate 62 >=60 mL/min/1. 73 m?? [facility] [...] Kia Viramontes DO CHEMISTRY ORDERABL ES [facility] [place] [address] documented in this encounter Visit Diagnoses Diagnosis Positive FRANCISCO (antinuclear antibody) Other and unspecified nonspecific immunological findings documented in this encounter Care Teams Certified Juvenile Probation Officer Relationship Specialty Start Date End Date Magdalena Acosta MD [address] [place] [address] PCP - General Family Medicine 02/05/23 documented as of this encounter
--- OUTSIDE RECORDS SUMMARY | 2024-07-13 14:11 | XMS_ITS | Encounter Summary ---
Author Organization [facility] [place] [address] Care Team Providers Care Biology Instructor Name Role Phone Magdalena Acosta MD Primary Care Provider [phone] Reason for Referral * Consultation (Routine) - Closed Specialty Diagnoses / Procedures Referred By Contac t Referred To Contact Rheumatology Diagnoses Weakness Kyra Haas MD [facility] [address] [place] [address] [facility] [address] [place] [phone] Referral ID Status Reason Start Date Expiration Date V isits Requested Visits Authorized [id number] Closed Consult, Test & Treat PCP Updated and/or Approved 02/25/2023 02/25/2024 6 6 Encounter Details Date Type Department Care Team (Late st Contact Info) Description 02/25/2023 Transcribe Orders eDH Incoming Referrals [phone] Magdalena Acosta MD [address] [place] [address] Weakness Social History Tobacco Use [...] 11/02/2024 12:00 PM EDT Appointment [place] [address] 11/02/2024 1:00 PM EDT Office [place] [address] Magdalena Peralta MD [facility] [place] [address] 03/01/2025 4:15 PM EDT Office Visit Dermatology at [place] [address] [place] [address] Marek Bonilla MD [address], [place] [address] Scheduled Referrals Name Type Priority Associated Diagnoses Order Schedule Referral to Rheumatology Outpatient Referral Routine Weakness Ordered: 02/25/2023 documented as of this encounter Visit Diagnoses Diagnosis Weakness Other malaise and fatigue documented in this encounter Care Teams Biology Instructor Relationship Specialty Start Date End Date Magdalena Acosta MD [address] [place] [address] PCP - General Family Medicine 02/05/23 documented as of this encounter
--- OUTSIDE RECORDS SUMMARY | 2024-07-13 14:11 | XMS_ITS | Encounter Summary ---
Author Organization [facility] Address [facility] [place] [address] Care Team Providers Care Xray Tech Name Role Phone Ashley Quirogan Sylvia ANURAG Primary Care Provider [phone] Encounter Details Date Type Department Care Team (Late st Contact Info) Description 01/14/2023 Refill Dermatology at [address] [address] Lupe Connor RN Social History [...] She would like the medication called into [facility]. Discussed with Dr. Bonilla and he has approved refill of the Doxycycline 50 mg take one capsule by mouth daily in the evenings dispense 30 capsules with 2 refills. Patient notified. documented in this encounter Plan of Treatment Upcoming Encounters Date Type Department Care Team (Late st Contact Info) Description 11/02/2024 12:00 PM EDT Appointment [place] [address] 11/02/2024 1:00 PM EDT Office [place] [address] Magdalena Peralta MD [facility] [address] [place] [address] 03/01/2025 4:15 PM EDT Office Visit Dermatology at [place] [address] [place] [address] Marek Bonilla MD [address], [place] Katherine [place] [address] documented as of this encounter Visit Diagnoses Not on filedocumented in this encounter Care Teams Xray Tech Relationship Specialty Start Date End Date Deborah Quiroga APRN PCP - General Family Medicine 03/24/16 02/04/23 documented as of this encounter
[2024-07-13 14:12] VITALS: BP 123/59; PULSE 57
--- OUTSIDE RECORDS SUMMARY | 2024-07-13 14:12 | XMS_ITS | Encounter Summary ---
[place] [address] Care Team Providers Care Former Hand Name Role Phone Ashley Quirogan Cornelius ANURAG Primary Care Provider [phone] Reason for Visit * Reason Onset Date Comments Medical Care Coordination 07/27/2017 Encounter Details Date Type Department Care Team (Late st Contact Info) Description 07/27/2017 Telephone Hematology [place] [address] Alexandrea Greenwood RN Medical Care Coordination Social [...] 07/27/2017 12:25 PM EST Message received from private tutors and teachers: Injection/Infusion Referral Call placed to [facility] @ [phone] Spoke w/ TAG METER OPERATOR Services to be provided for pt are: CBC/CMP DONE Q6 MONTHS X2 STARTING NOVEMBER 2017 TECH confirmed they would provide services to pt - I CALLED PT, LM. Pt orders faxed to [phone] documented in this encounter Plan of Treatment Upcoming Encounters Date Type Department Care Team (Late st Contact Info) Description 11/02/2024 12:00 PM EDT Appointment [place] [address] 11/02/2024 1:00 PM EDT Office Visit [place] [address] Magdalena Peralta MD [facility] [place] [address] 03/01/2025 4:15 PM EDT Office Visit Dermatology at [place] [address] [place] [address] Marek Bonilla MD [address], [place] [address] documented as of this encounter Visit Diagnoses Not on filedocumented in this encounter Care Teams Former Hand Relationship Specialty Start Date End Date Deborah Quiroga APRN PCP - General Family Medicine 03/24/16 02/04/23 documented as of this encounter
--- OUTSIDE RECORDS SUMMARY | 2024-07-13 14:12 | XMS_ITS | Encounter Summary ---
Author Organization [facility] [place] [address] Care Team Providers Care Tobacco Cloth Reclaimer Name Role Phone Ashley Quirogan Cornelius ANURAG Primary Care Provider [phone] Encounter Details Date Type Department Care Team (Late st Contact Info) Description 02/07/2020 Telephone Hematology [place] [address] Ellen Rios RN Social History [...] 02/07/2020 12:59 PM EDT Message received from parts sales advisor: Injection/Infusion Referral Services to be provided for pt are: CBC only at [facility]- Pt will go by 02/27 Orders faxed to [phone]). Spoke with pt. She will call [facility] directly to schedule a time that works for her. documented in this encounter Plan of Treatment Upcoming Encounters Date Type Department Care Team (Late Contact Info) Description 11/02/2024 12:00 PM EDT Appointment [place] [address] 11/02/2024 1:00 PM EDT Office [place] [address] Magdalena Peralta MD [facility] [place] [address] 03/01/2025 4:15 PM EDT Office Visit Dermatology at [place] [address] [address] Marek Bonilla MD [address], [place] [address] documented as of this encounter Visit Diagnoses Not on filedocumented in this encounter Care Teams Tobacco Cloth Reclaimer Relationship Specialty Start Date End Date Deborah Quiroga APRN PCP - General Family Medicine 03/24/16 02/04/23 documented as of this encounter
--- OUTSIDE RECORDS SUMMARY | 2024-07-13 14:12 | XMS_ITS | Encounter Summary ---
Author [place] [address] Care Team Providers Care Epic Willow Analyst Name Role Phone Ashley Quirogazac Shields APRN Primary Care Provider [phone] Reason for Visit * Reason Onset Date Comments Results 12/03/2016 Encounter Details Date Type Department Care Team (Late st Contact Info) Description 12/03/2016 Telephone Hematology [place] [address] Yudith Valentine, RN Results Social [...] EDT RN received call from Maddy at [facility] reporting critical WBC at 1.61, and ANC of 0.5. She will fax the full results to this office for utilization reviewer notified DR Borjas of above results documented in this encounter Plan of Treatment Upcoming Encounters Date Type Department Care Team (Late st Contact Info) Description 11/02/2024 12:00 PM EDT Appointment [place] [address] 11/02/2024 1:00 PM EDT Office [place] [address] Magdalena Peralta MD [facility] [place] [address] 03/01/2025 4:15 PM EDT Office Visit Dermatology at [place] [address] [facility] [address] [place] [address] Marek Bonilla MD [address] [facility] [place] [place] [address] documented as of this encounter Visit Diagnoses Not on filedocumented in this encounter Care Teams Epic Willow Analyst Relationship Specialty Start Date End Date Deborah Quiroga APRN PCP - General Family Medicine 03/24/16 02/04/23 documented as of this encounter
--- OUTSIDE RECORDS SUMMARY | 2024-07-13 14:12 | XMS_ITS | Encounter Summary ---
Author Organization [facility] Address [facility] Erika ló[place] [address] Care Team Providers Care Supervisor Blast Furnace Auxiliaries Name Role Phone Deborah Quiroga APRN Primary Care Provider [phone] Encounter Details Date Type Department Care Team (Late st Contact Info) Description 01/09/2022 Refill Dermatology at [address] [place] [address] Lupe Connor RN Social History [...] 11/02/2024 12:00 PM EDT Appointment [place] [address] 11/02/2024 1:00 PM EDT Office [place] [address] Magdalena Peralta MD [facility] [place] [address] 03/01/2025 4:15 PM EDT Office Visit Dermatology at [address] [place] [address] Marek Bonilla MD [address], [place] [address] documented as of this encounter Visit Diagnoses Not on filedocumented in this encounter Care Teams Supervisor Blast Furnace Auxiliaries Relationship Specialty Start Date End Date Deborah Quiroga APRN PCP - General Family Medicine 03/24/16 02/04/23 documented as of this encounter
--- OUTSIDE RECORDS SUMMARY | 2024-07-13 14:12 | XMS_ITS | Encounter Summary ---
Author Organization [facility] [place] [address] Care Team Providers Care Digital Specialist Name Role Phone Aslhey Quirogan Cornelius ANURAG Primary Care Provider [phone] Encounter Details Date Type Department Care Team (Late st Contact Info) Description 02/06/2020 Orders Only Hematology [place] [address] Markel Borjas MD [facility] [address] HEMATOLOGY AND ONCOLOGY [place], [place] [phone] Neutropenia, unspecified type Social History Tobacco Use [...] 11/02/2024 12:00 PM EDT Appointment [place] [address] 11/02/2024 1:00 PM EDT Office [place] [address] Magdalena Peralta MD [facility] [place] [address] 03/01/2025 4:15 PM EDT Office Visit Dermatology at [place] [address] [place] [address] Marek Bonilla MD [address], [place] [address] documented as of this encounter Visit Diagnoses Diagnosis Neutropenia, unspecified type documented in this encounter Care Teams Digital Specialist Relationship Specialty Start Date End Date Deborah Quiroga APRN PCP - General Family Medicine 03/24/16 02/04/23 documented as of this encounter
--- OUTSIDE RECORDS SUMMARY | 2024-07-13 14:12 | XMS_ITS | Encounter Summary ---
[place] [address] Care Team Providers Care Web Marketing Strategist Name Role Phone Deborah Quiroga APRN Primary Care Provider [phone] Reason for Referral * Consultation (Routine) - Closed Specialty Diagnoses / Procedures Referred By Contac t Referred To Contact Rheumatology Diagnoses Positive FRANCISCO (antinuclear antibody) Arthralgia, unspecified joint Sandy Wu APRN [address] [place] [address] [facility] [address] [place] [phone] Referral ID Status Reason Start Date Expiration Date V isits Requested Visits Authorized [id number] Closed Consult, Test & Treat PCP Updated and/or Approved 01/01/2022 01/01/2023 6 6 Encounter Details Date Type Department Care Team (Latest Contact Info) Description 01/01/2022 Transcribe Orders eDH Incoming Referrals [phone] Sandy Wu APRN [address] [place], [place] [id number] Positive FRANCISCO (antinuclear antibody); Arthralgia, unspecified joint [...] 11/02/2024 12:00 PM EDT Appoint[place] [address] 11/02/2024 1:00 PM EDT [place] [address] Magdalena Peralta MD [facility] [place] [address] 03/01/2025 4:15 PM EDT Office Visit Dermatology at [place] [address] [facility] [place] [address] Marek Bonilla MD [address], [place] [address] Scheduled Referrals Name Type Priority Associated Diagnoses Orde r Schedule Referral to Rheumatology Outpatient Referral Routine Positive FRANCISCO (antinuclear antibody) Arthralgia, unspecified joint Ordered: 01/01/2022 documented as of this encounter Visit Diagnoses Diagnosis Positive FRANCISCO (antinuclear antibody) Other and unspecified nonspecific immunological findings Arthralgia, unspecified joint documented in this encounter Care Teams Web Marketing Strategist Relationship Specialty Start Date End Date Dbeorah Quiroga APRN PCP - General Family Medicine 03/24/16 02/04/23 documented as of this encounter
--- OUTSIDE RECORDS SUMMARY | 2024-07-13 14:12 | XMS_ITS | Encounter Summary ---
Author Organization [facility] [place] [address] Care Team Providers Care Hide Or Skin Buffer Name Role Phone Ashley Quirogan Cornelius AUNRAG Primary Care Provider [phone] Encounter Details Date Type Department Care Team (Late st Contact Info) Description 11/02/2022 Orders Only [place] [address] Emily Lyons PA [facility] [place] [address] Aortic valve stenosis, etiology of cardiac valve [...] 11/02/2024 12:00 PM EDT Appoint[place] [address] 11/02/2024 1:00 PM EDT Office [place] [address] Magdalena Peralta MD [facility] RHEUMATOLOGY DEPT [place], [place] [address] 03/01/2025 4:15 PM EDT Office Visit Dermatology at [place] [address] [facility] [place] [address] Marek Bonilla MD [address], [place] [address] documented as of this encounter Visit Diagnoses Diagnosis Aortic valve stenosis, etiology of cardiac valve disease unspecified documented in this encounter Care Teams Hide Or Skin Buffer Relationship Specialty Start Date End Date Deborah Quiroga APRN PCP - General Family Medicine 03/24/16 02/04/23 documented as of this encounter
--- OUTSIDE RECORDS SUMMARY | 2024-07-13 14:12 | XMS_ITS | Encounter Summary ---
[place] [address] Care Team Providers Care Machine Feeder Floorperson Name Role Phone Ashley Quirogazac Shields APRN Primary Care Provider +1 [phone] Reason for Visit * Reason Comments Annual Exam Encounter Details Date Type Department Care Team (Late st Contact Info) Description 01/09/2022 3:15 PM EDT Office Visit Dermatology at [address] [phone] Marek Bonilla MD [address] [facility] [facility] DERMATOLOGY [place], [place] [phone] Rosacea Social History Tobacco Use Types Packs/Day [...] cutaneous and ocular 2. Previously told by sprinkler repair technician that she had corneal tears from [...] refills. We will call this into her [facility] pharmacy in [place] 3. Continue metronidazole 0.75% gel applying every other day after washing as needed. We will give her 45 g with 5 refills. 4. Return to clinic in a year for repeat check CC: Deborah Quiroga APRN documented in this encounter Plan of Treatment Upcoming Encounters Date Type Department Care Team (Late st Contact Info) Description 11/02/2024 12:00 PM EDT Appointment [place] [address] 11/02/2024 1:00 PM EDT Office [place] [address] Magdalena Peralta MD [facility] DR RHEUM[place] [address] 03/01/2025 4:15 PM EDT Office Visit Dermatology at [place] [address] [facility] [place] [address] Marek Bonilla MD [address] [facility] DERMATOLOGY [place], [place] [phone] documented as of this encounter Visit Diagnoses Diagnosis Rosacea documented in this encounter Care Teams Machine Feeder Floorperson Relationship Specialty Start Date End Date Deborah Quiroga APRN PCP - General Family Medicine 03/24/16 02/04/23 documented as of this encounter
--- OUTSIDE RECORDS SUMMARY | 2024-07-13 14:12 | XMS_ITS | Encounter Summary ---
Author Organization [facility] Address [facility] [place] [address] Care Team Providers Care Enterprise Application Analyst Name Role Phone Ashley Quirogazac Shields APRN Primary Care Provider +1 [phone] Reason for Referral * Consultation (Routine) - Closed Specialty Diagnoses / Procedures Referred By Contac t Referred To Contact Neurology Diagnoses Neck pain Popeye Rgoers MD [facility] [place] [address] Kyra Haas MD [facility] [address] [address] Referral ID Status Reason Start Date Expiration Date V isits Requested Visits Authorized [id number] Closed Consult, Test & Treat 06/29/2022 06/29/2023 1 1 Reason for Visit * Reason Comments Neck Pain Weak in both arms, p ain and tingling in arms and hands Encounter Details Date Type Department Care Team (Late st Contact Info) Description 06/29/2022 10:20 AM EST Office Visit [facility] [place] [address] Popeye Rogers MD [facility] [place] [address] Neck pain Social History Tobacco Use Types [...] have EMG and nerve conduction studies in [place] that showed carpal tunnel syndrome. I do not have a copy of that report. documented in this encounter Plan of Treatment Upcoming Encounters Date Type Department Care Team (Late st Contact Info) Description 11/02/2024 12:00 PM EDT Appointment [place] [address] 11/02/2024 1:00 PM EDT Office [place] [address] Magdalena Peralta MD [facility] [place] [address] 03/01/2025 4:15 PM EDT Office Visit Dermatology at [address] [place] [address] Marek Bonilla MD [address] [facility], [place] [address] Scheduled Referrals Name Type Priority Associated Diagnoses Orde r Schedule Referral to Neurology Outpatient Referral Routine Neck pain Ordered: 06/29/2022 documented as of this encounter Visit Diagnoses Diagnosis Neck pain Cervicalgia documented in this encounter Care Teams Enterprise Application Analyst Relationship Specialty Start Date End Date Deborah Quiroga APRN PCP - General Family Medicine 03/24/16 02/04/23 documented as of this encounter
--- OUTSIDE RECORDS SUMMARY | 2024-07-13 14:12 | XMS_ITS | Encounter Summary ---
Author Organization Replaced By [facility] Address [facility] [place] [address] Care Team Providers Care Neon Light Installer Name Role Phone Junaid, Deborah Shields APRN Primary Care Provider +1 [phone] Reason for Visit * Reason Comments Schedule Office Case Pain right leg Encounter Details Date Type Department Care Team (Late st Contact Info) Description 12/11/2016 9:00 AM EDT Office Visit Hematology [place] [address] Markel Borjas MD [facility] [address] [place] [address] Neutropenia, unspecified type Social History Tobacco Use [...] EDT Hematology Outpatient Clinic [facility] Hematology Outpatient Consult Note CC: [...] TOUCH PREP, CLOT SECTION, CORE ??BIOPSY); [OSR# [id number], COLLECTED 06/23/2016, 19 SLIDES]: ?1. 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 Extremities: No edema. Labs: Hgb= 13 Zrbt=711 ANC= 0.5 Imaging As above - reviewed [...] 11/02/2024 12:00 PM EDT Appointment [place] [address] 11/02/2024 1:00 PM EDT Office [place] [phone] Magdalena Peralta MD [facility] [place] [address] 03/01/2025 4:15 PM EDT Office Visit Dermatology at [place] [address] [place] [phone] Marek Bonilla MD [address] [facility] [address] documented as of this encounter [...] type documented in this encounter Care Teams Neon Light Installer Relationship Specialty Start Date End Date Deborah Quiroga APRN PCP - General Family Medicine 03/24/16 02/04/23 documented as of this encounter
--- OUTSIDE RECORDS SUMMARY | 2024-07-13 14:12 | XMS_ITS | Encounter Summary ---
Author Organization [facility] Address [facility] Erika ló[place] [address] Care Team Providers Care Nursing Assistant Name Role Phone Deborah Quiroga ANURAG Primary Care Provider +1 [phone] Encounter Details Date Type Department Care Team (Late st Contact Info) Description 11/11/2020 Refill Dermatology at [address] [place] [address] Taylor Malone, CLIENT TECHNICAL SUPPORT ASSOCIATE Social History Tobacco Use Types Packs/Day Years [...] 11/02/2024 12:00 PM EDT Appointment [place] [address] 11/02/2024 1:00 PM EDT Office [place] [address] Magdalena Peralta MD [facility] [place] [address] 03/01/2025 4:15 PM EDT Office Visit Dermatology at [address] [place] [address] Marek Bonilla MD [address] [facility] [address], [place] [address] documented as of this encounter Visit Diagnoses Not on filedocumented in this encounter Care Teams Nursing Assistant Relationship Specialty Start Date End Date Deborah Quiroga APRN PCP - General Family Medicine 03/24/16 02/04/23 documented as of this encounter
--- OUTSIDE RECORDS SUMMARY | 2024-07-13 14:12 | XMS_ITS | Encounter Summary ---
Author Organization [facility] [place] [address] Care Team Providers Care Commercial Plumber Name Role Phone Deborah Quiroga APRN Primary Care Provider [phone]- [phone] Encounter Details Date Type Department Care Team (Late st Contact Info) Description 06/08/2022 Ancillary Procedure Radiology Library at [facility] [place] [phone] Deborah Quiroga APRN [address] [place] [address] Social History Tobacco Use Types Packs/Day [...] PM EDT Appoint[place] [address] 11/02/2024 1:00 PM EDT Office [place] [address] Magdalena Peralta MD [facility] RHEUMATOLOGY [place]PT [place], [place] [address] 03/01/2025 4:15 PM EDT Office Visit Dermatology at [place] [address] [facility] [place] [address] Marek Bonilla MD [address] [facility] [address], [place] [address] documented as of this encounter Procedures Procedure Name Priority Date/Time Associated Diagnosis Comments FILM LIBRARY STORAGE ONLY DX SPINE Routine 06/08/2022 12:00 AM EST documented in this encounter Results * Film Library- Storage Only DX Spine (06/08/2022 12:00 AM EST) Narrative [facility] - 06/18/2022 10:57 AM EST This exam is auto-finalizing. It's purpose is for storage only. Deborah Quiroga APRN IMG FILM LIBRARY OR DERABLES Performing Organization Address City/State/[facility] de Phone Number [place], [place] documented in this encounter Visit Diagnoses Not on filedocumented in this encounter Care Teams Commercial Plumber Relationship Specialty Start Date End Date Deborah Quiroga APRN PCP - General Family Medicine 03/24/16 02/04/23 documented as of this encounter
--- OUTSIDE RECORDS SUMMARY | 2024-07-13 14:12 | XMS_ITS | Encounter Summary ---
Author Organization [facility] [place] [address] Care Team Providers Care Package Handler Name Role Phone Deborah Quiroga APRN Primary Care Provider [phone]- [phone] Reason for Referral * Consultation (Routine) - Closed Specialty Diagnoses / Procedures Referred By Crispin maxwell Referred To Contact Neurology Diagnoses Polyneuropathy Deborah Quiroga APRN [address] [facility] [address] [place] [address] [facility] [address] [place] [phone] Referral ID Status Reason Start Date Expiration Date V isits Requested Visits Authorized [id number] Closed Consult, Test & Treat 10/29/2022 10/29/2023 1 1 Encounter Details Date Type Department Care Team (Latest Contact Info) Description 10/29/2022 Transcribe Orders eDH Incoming Referrals [phone] Deborah Quiroga APRN [address] [facility] [address] [place] [address] Polyneuropathy (Primary Dx) Social History [...] EDT Appointment [place] [address] 11/02/2024 1:00 PM EDT Office Visit [place] [address] Magdalena Peralta MD [facility] [place] [address] 03/01/2025 4:15 PM EDT Office Visit Dermatology at [place] [address] [facility] [address] [place] [address] Marek Bonilla MD [address] [facility] [facility] [address] [address], [place] [address] Scheduled Referrals Name Type Priority Associated Diagnoses Orde r Schedule Referral to Neurology Outpatient Referral Routine Polyneuropathy Ordered: 10/29/2022 documented as of this encounter Visit Diagnoses Diagnosis Polyneuropathy- Primary Unspecified hereditary and idiopathic peripheral neuropathy documented in this encounter Care Teams Package Handler Relationship Specialty Start Date End Date Deborah Quiroga APRN PCP - General Family Medicine 03/24/16 02/04/23 documented as of this encounter
--- OUTSIDE RECORDS SUMMARY | 2024-07-13 14:12 | XMS_ITS | Encounter Summary ---
[place] [address] Care Team Providers Care Manager Cardiac Cath Name Role Phone Junaid Deborah Shields APRN Primary Care Provider [phone] [phone] Reason for Visit * Reason Comments Follow-up Encounter Details Date Type Department Care Team (Late st Contact Info) Description 01/10/2021 4:30 PM EDT Office Visit Dermatology at [place] [address] [facility] [place] [address] Marek Bonilla MD [address] [facility], [address] A DERMATOLOGY [place], [place] [phone] Rosacea Social History Tobacco Use Types Packs/Day [...] cutaneous and ocular 2. Previously told by ad compositor that she had corneal tears from her [...] 3 refills. Will call this in her [facility] pharmacy in [place] 3. Continue metronidazole 0.75% gel applying once [...] 11/02/2024 12:00 PM EDT Appointment [place] [address] 11/02/2024 1:00 PM EDT Office [place] [address] Madgalena Peralta MD [facility] [place] [address] 03/01/2025 4:15 PM EDT Office Visit Dermatology at [place] [address] [facility] [address] [place] [address] Marek Bonilla MD [address] [facility] [address], [address] [place] [address] documented as of this encounter Visit Diagnoses Diagnosis Rosacea documented in this encounter Care Teams Manager Cardiac Cath Relationship Specialty Start Date End Date Deborah Quiroga APRN PCP - General Family Medicine 03/24/16 02/04/23 documented as of this encounter
--- OUTSIDE RECORDS SUMMARY | 2024-07-13 14:12 | XMS_ITS | Encounter Summary ---
Author Organization [facility] [place] [address] Care Team Providers Care Outsole Tacker Name Role Phone Deborah Quiroga APRN Primary Care Provider +1- [phone] Encounter Details Date Type Department Care Team (Late st Contact Info) Description 06/05/2021 Interpretation Only [address] [address] Deborah Quiroga APRN [address] [phone] Social History Tobacco Use Types Packs/Day Years [...] 11/02/2024 12:00 PM EDT Appointment [place] [address] 11/02/2024 1:00 PM EDT Office [place] [address] Magdalena Peralta MD [facility] [place] [address] 03/01/2025 4:15 PM EDT Office Visit Dermatology at [place] [address] [facility] [address] [place] [address] Marek Bonilla MD [address] [facility] [address], [place] [address] documented as of this encounter Procedures Procedure Name Priority Date/Time Associated Diagnosis Comments MAMMO SCREENING CAD AND ERLIN BILATERAL Routine 06/05/2021 11:42 AM EDT documented in this encounter Results * Mammo Screening Cad and Erlin Bilateral (06/05/2021 11:42 AM EDT) PT CLASS O DH RAD ADMITDTTM DH RAD PT DH RAD MD INFO [id number]^EVERET T^DEBORAH^E DH RAD EXAM DESC MADDSCTO^BREAST SCREEN [...] questions please contact the health director of medicare that requested your imaging first. ? Narrative [...] have questions please contactthe health director of medicare that requested your imaging first. Deborah Quiroga APRN IMG MAMMO ORDERABLE S documented in this encounter Visit Diagnoses Not on filedocumented in this encounter Care Teams Outsole Tacker Relationship Specialty Start Date End Date Deborah Quiroga APRN PCP - General Family Medicine 03/24/16 02/04/23 documented as of this encounter
--- OUTSIDE RECORDS SUMMARY | 2024-07-13 14:12 | XMS_ITS | Encounter Summary ---
Author Organization [facility] [place] [address] Care Team Providers Care Certifed Refrigeration Operator Name Role Phone Junaid Deborah Shields APRN Primary Care Provider +1- [phone] Encounter Details Date Type Department Care Team (Latest Contact Info) Description 11/09/2022 10:37 AM EDT - 11/09/2022 4:53 PM EDT Hospital En[place] [address] Nitesh Escobedo MD [facility] [place] [address] Aortic valve stenosis, etiology of cardiac valve [...] please contact your inpatient physician through the [facility] Chief Service Observer . Issues afterhours and on weekends will [...] MD - 11/09/2022 11:20 AM EDT . [facility] Interventional Cardiology Adult Pre-Procedure H&P Update: Cardiac Catheterization Purnima Thacker [id number] Chief Complaint: [place] HPI: Purnima Thacker [...] Marrero MD Interventional Cardiology 11/09/22 11:43 AM [facility] Pager: [phone] documented in this encounter Plan of Treatment Upcoming Encounters Date Type Department Care Team (Late st Contact Info) Description 11/02/2024 12:00 PM EDT Appointment [place] [address] 11/02/2024 1:00 PM EDT Office [place] [address] Magdalena Peralta MD [facility] [place] [address] 03/01/2025 4:15 PM EDT Office Visit Dermatology at [place] [address] [facility] [place] [address] Marek Bonilla MD [address], [place] [address] documented as of this encounter Procedures Procedure Name Priority Date/Time Associated Diagnosis Comments CARDIAC CATHETERIZATION Routine 11/10/19 1:05 PM EDT Aortic valve stenosis, etiology of cardiac valve disease unspecified Cath Plmt Left Heart Cath & Arts W/Inj & Angio Img S&I ([id number]) 11/09/2022 11:51 AM EDT Aortic valve stenosis, etiology of cardiac valve disease unspecified EKG 12-LEAD Routine 11/09/2022 11:17 AM EDT Aortic valve stenosis, etiology of cardiac valve disease unspecified documented in this encounter Results * CARDIAC CATHETERIZATION (11/09/2022 1:05 PM EDT) Anatomical Region Laterality Modality Other Narrative 11/09/2022 2:01 PM EDT ?[facility] ? Cardiac Catheterization/Intervention Report ? Patient Name: Kirstie, Purnima M. ? Procedure Date: 11/09/2022 ? A #: [id number] ? Primary Physician: Nitesh Escobedo ? Case #: [id number] ? File Name: [id number] ? Catheterization Order Number: [id number] ? [facility] ? Final Report [place], [place] ? Patient Name: ? Purnima M. Kirstie ? ID#: ?[id number] ? : ?1955 ? Procedure Date: ? November 09, 2022 ? Case #: ? [id number] ? Room: ? 1 ? Case Physician: [...] designated as ASA Class III. The [facility] clinical frailty scale ?is 4: [...] 457 ms MUSE SYSTEM Calculated P [place] 44 degrees MUSE SYSTEM Calculated R [place] 33 degrees MUSE SYSTEM Calculated T [place] 30 degrees MUSE SYSTEM INTERPRETATION Sinus rhythm Occasional Premature ventricular complexes Otherwise normal ECG When compared with ECG of 21-SEP-2016 12:26, Premature ventricular complexes are now Present OR interval has decreased Nonspecific T wave abnormality has replaced inverted T waves in Inferior leads I personally reviewed the tracing and edited the fellows interpretation Confirmed by fellow MD Anitha, Carissa ([id number]) on 11/09/2022 6:17:28 PM Confirmed by Elsa Linares MD ([id number]) on 11/10/2022 3:47:14 PM MUSE SYSTEM 11/09/2022 11:1 7 AM EDT 11/10/2022 3:47 PM EDT Nitesh Escobedo MD ECG ORDERABLES [employer] documented in this encounter Visit Diagnoses [...] MD) documented in this encounter Care Teams Certifed Refrigeration Operator Relationship Specialty Start Date End Date Junaid Deborah Shields, MANAGER GAMING PCP - General Family Medicine 03/24/16 02/04/23 documented as of this encounter
--- OUTSIDE RECORDS SUMMARY | 2024-07-13 14:12 | XMS_ITS | Encounter Summary ---
Author Organization [facility] [place] [address] Care Team Providers Care Finishing Machine Tender Name Role Phone Ashley Quirogan [place] ANURAG Primary Care Provider +1 [phone] Reason for Visit * Reason Comments Skin Check Encounter Details Date Type Department Care Team (Late st Contact Info) Description 11/11/2020 10:45 AM EDT Office Visit Dermatology at [address] [place] [address] Marek Bonilla MD [address] [facility] [address] A DERMATOLOGY [place], [place] [phone] Rosacea; Acrochordon Social History Tobacco Use Types [...] Discussed the possibility of getting this through [facility] or from the [facility] pharmacy if necessary. She has not yet [...] 11/02/2024 12:00 PM EDT Appoint[place] [address] 11/02/2024 1:00 PM EDT Office [place] [address] Magdalena Peralta MD [facility] [place] [address] 03/01/2025 4:15 PM EDT Office Visit Dermatology at [place] [address] [facility] [place] [address] Marek Bonilla MD [address] [facility] [place] [address] documented as of this encounter Visit Diagnoses Diagnosis Rosacea Acrochordon Unspecified hypertrophic and atrophic condition of skin documented in this encounter Care Teams Finishing Machine Tender Relationship Specialty Start Date End Date Deborah Quiroga APRN PCP - General Family Medicine 03/24/16 02/04/23 documented as of this encounter
--- OUTSIDE RECORDS SUMMARY | 2024-07-13 14:12 | XMS_ITS | Encounter Summary ---
Author Organization [facility] [place] [address] Care Team Providers Care Office Assistant Name Role Phone Deborah Quiroga APRN Primary Care Provider Encounter Details Date Type Department Care Team (Late st Contact Info) Description 06/17/2022 Ancillary Procedure Radiology Library at [facility] [address] Deborah Quiroga APRN [address] [place] [address] Social History Tobacco Use Types Packs/Day [...] 11/02/2024 12:00 PM EDT Appointment [place] [address] 11/02/2024 1:00 PM EDT Office [place] [address] Magdalena Peralta MD [facility] RHEUMATOLOGY DEPT [place], [place] [address] 03/01/2025 4:15 PM EDT Office Visit Dermatology at [place] [address] [facility] [place] [address] Marek Bonilla MD [address], [place] [address] documented as of this encounter Procedures Procedure Name Priority Date/Time Associated Diagnosis Comments FILM LIBRARY STORAGE ONLY MR SPINE Routine 06/17/2022 12:00 AM EST documented in this encounter Results * Film Library- Storage Only MR Spine (06/17/2022 12:00 AM EST) Narrative [facility] - 06/18/2022 11:00 AM EST This exam is auto-finalizing. It's purpose is for storage only. Deborah Quiroga APRN IMG FILM LIBRARY OR DERABLES Performing Organization Address City/State/[facility] de Phone Number [place], [place] documented in this encounter Visit Diagnoses Not on filedocumented in this encounter Care Teams Office Assistant Relationship Specialty Start Date End Date Deborah Quiroga APRN PCP - General Family Medicine 03/24/16 02/04/23 documented as of this encounter
--- OUTSIDE RECORDS SUMMARY | 2024-07-13 14:12 | XMS_ITS | Encounter Summary ---
Author Organization [facility] Address [facility] [place] [address] Care Team Providers Care Slab Conditioner Supervisor Name Role Phone Deborah Quiroga APRN Primary Care Provider +1 [phone] Encounter Details Date Type Department Care Team (Late st Contact Info) Description 03/01/2020 11:30 AM EDT Office Visit Hematology [place] [phone] Patrick Borjas MD [facility] [address] HEMATOLOGY [place] [address] Neutropenia, unspecified type Social History Tobacco Use [...] documented in this encounter Progress Notes * Partick Borjas MD - 03/01/2020 11:30 AM EDT Hematology Outpatient Clinic [facility] [...] TOUCH PREP, CLOT SECTION, CORE ??BIOPSY); [OSR# [id number], COLLECTED 06/23/2016, 19 SLIDES]: ?1. 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 Extremities: No edema. Labs: Hgb= 12.4 Pgsu=631 ANC= 2.5 Imaging As above - reviewed [...] 11/02/2024 12:00 PM EDT Appointment [place] [address] 11/02/2024 1:00 PM EDT Office Visit Rheumatology at [place] [phone] Magdalena Peralta MD [facility] [place] [address] 03/01/2025 4:15 PM EDT Office Visit Dermatology at [address] [place] [address] Marek Bonilla MD [address] [facility], [address] DERMATOLOGY [place], [place] [phone] documented as of this encounter Visit Diagnoses Diagnosis Neutropenia, unspecified type documented in this encounter Care Teams Slab Conditioner Supervisor Relationship Specialty Start Date End Date Deborah Quiroga APRN PCP - General Family Medicine 03/24/16 02/04/23 documented as of this encounter
--- OUTSIDE RECORDS SUMMARY | 2024-07-13 14:12 | XMS_ITS | Encounter Summary ---
[place] [address] Care Team Providers Care Catalog Specialist Name Role Phone Ashley Quirogan Cornelius ANURAG Primary Care Provider +1 [phone] Reason for Visit * Reason Comments Acrochordon Rosacea Encounter Details Date Type Department Care Team (Late st Contact Info) Description 12/05/2020 3:00 PM EDT Office Visit Dermatology at [address] [address] Marek Bonilla MD [address] [facility], [place] [address] Inflamed acrochordon Social History Tobacco Use Types [...] 11/02/2024 12:00 PM EDT App[place] [address] 11/02/2024 1:00 PM EDT Office [place] [address] Magdalena Peralta MD [facility] [place] [address] 03/01/2025 4:15 PM EDT Office Visit Dermatology at [place] [address] [place] [address] Marek Bonilla MD [address] [facility], [place] [address] documented as of this encounter Visit Diagnoses Diagnosis Inflamed acrochordon Unspecified hypertrophic and atrophic condition of skin documented in this encounter Care Teams Catalog Specialist Relationship Specialty Start Date End Date Deborah Quiroga APRN PCP - General Family Medicine 03/24/16 02/04/23 documented as of this encounter
--- OUTSIDE RECORDS SUMMARY | 2024-07-13 14:12 | XMS_ITS | Encounter Summary ---
Author Organization [facility] [place] [address] Care Team Providers Care Office Nurse Practitioner Name Role Phone Ashley Quirogazac Shields APRN Primary Care Provider +1 [phone] Encounter Details Date Type Department Care Team [...] 11/02/2024 12:00 PM EDT Appointment [place] [address] 11/02/2024 1:00 PM EDT Office [place] [address] Magdalena Peralta MD [facility] [place] [address] 03/01/2025 4:15 PM EDT Office Visit Dermatology at [address] [place] [address] Marek Bonilla MD [address] [facility], [place] [address] documented as of this encounter Visit Diagnoses Not on filedocumented in this encounter Care Teams Office Nurse Practitioner Relationship Specialty Start Date End Date Deborah Quiroga APRN PCP - General Family Medicine 03/24/16 02/04/23 documented as of this encounter
--- OUTSIDE RECORDS SUMMARY | 2024-07-13 14:12 | XMS_ITS | Encounter Summary ---
Author Organization [facility] Address [facility] [place] [address] Care Team Providers Care Clinical Documentation Clerk Name Role Phone Ashley Quirogazac Shields APRN Primary Care Provider +1 [phone] Encounter Details Date Type Department Care Team [...] 11/02/2024 12:00 PM EDT [place] [address] 11/02/2024 1:00 PM EDT [place] [address] Magdalena Peralta MD [facility] [place] [address] 03/01/2025 4:15 PM EDT Office Visit Dermatology at [address] [place] [address] Marek Bonilla MD [address] [facility], [place] [address] documented as of this encounter Visit Diagnoses Not on filedocumented in this encounter Care Teams Clinical Documentation Clerk Relationship Specialty Start Date End Date Deborah Quiroga APRN PCP - General Family Medicine 03/24/16 02/04/23 documented as of this encounter
--- OUTSIDE RECORDS SUMMARY | 2024-07-13 14:12 | XMS_ITS | Encounter Summary ---
Author Organization [facility] Address [facility] [place] [address] Care Team Providers Care Manager Placement Name Role Phone Deborah Quiroga ANURAG Primary Care Provider +1 [phone] Encounter Details Date Type Department Care Team (Late st Contact Info) Description 06/18/2017 External Results [place]ology [place] [address] Alexandrea Greenwood RN Neutropenia, unspecified [...] 11/02/2024 12:00 PM EDT [place] [address] 11/02/2024 1:00 PM EDT Office [place] [address] Magdalena Peralta MD [facility] [place] [address] 03/01/2025 4:15 PM EDT Office Visit Dermatology at [address] [address] Marek Bonilla MD [address] [facility] [address], [place] [address] documented as of this encounter Procedures Procedure [...] documented in this encounter Care Teams Manager Placement Relationship Specialty Start Date End Date Deborah Quiroga, OTR VAN CDL TRUCK DRIVER PCP - General Family Medicine 03/24/16 02/04/23 documented as of this encounter
--- OUTSIDE RECORDS SUMMARY | 2024-07-13 14:12 | XMS_ITS | Encounter Summary ---
Author Organization [facility] Address [facility] Erika [facility] [place] [place] [address] Care Team Providers Care Lan Analyst Name Role Phone Deborah Quiroag ANURAG Primary Care Provider +1 [phone] Encounter Details Date Type Department Care Team (Late st Contact Info) Description 12/04/2016 External Results Hematology and Oncology at [place] [phone] Teresa Dodson, RN Social History Tobacco Use [...] 11/02/2024 12:00 PM EDT Appointment Pulmonology at [place] [phone] 11/02/2024 1:00 PM EDT Office [place] [address] Magdalena Peralta MD [facility] [place] [address] 03/01/2025 4:15 PM EDT Office Visit Dermatology at [address] [phone] Marek Bonilla MD [address] [place] [address], [place] [address] documented as of this encounter Procedures Procedure Name Priority Date/Time Associated Diagnosis Comments CBC (WITH DIFF) Routine 12/03/2016 11:35 AM EDT COMPREHENSIVE METABOLIC PANEL Routine 12/03/2016 11:35 AM EDT documented in this encounter Results * (ABNORMAL) Comprehensive metabolic panel (non-fasting) (12/03/2016 11:35 AM EDT) Glucose 85(Classifier al Lab) Blood Urea Nitrogen 11(Classifier al Lab) Creatinine 0.93(Exte rnal Lab) Sodium 140(Exter nal Lab) Potassium 4.2(Exter nal Lab) Chloride 104(Exter nal Lab) Calcium 10.0(Exte rnal Lab) Protein, Total 8.1(Exter nal Lab) Albumin 3.5(Exter nal Lab) Bilirubin, Total 0.25(Exte rnal Lab) Alkaline Phosphatase 96(Classifier al Lab) Aspartate Aminotransferase 18(Classifier al Lab) Alanine Aminotransferase 21(Classifier al Lab) Blood specimen (specimen) 12/03/2016 11:35 AM EDT Historical Provider CHEMISTRY ORDERAB LES * (ABNORMAL) CBC (with Diff) (12/03/2016 11:35 AM EDT) White Blood Cell 1.61(EXTER NAL/ABN) 4.4 - 10.8 Hemoglobin 13.0(Exter nal Lab) Hematocrit 39.8(Exter nal Lab) Platelet 248(Classifier al Lab) Neutrophil Absolute (ANC) - Automated 0.5(RAIL CAR PAINTER/SANDBLASTER AL/ABN) Blood specimen (specimen) 12/03/2016 11:35 AM EDT Historical Provider HEMATOLOGY ORDERA BLES documented in this encounter Visit Diagnoses Not on filedocumented in this encounter Care Teams Lan Analyst Relationship Specialty Start Date End Date Deborah Quiroga APRN PCP - General Family Medicine 03/24/16 02/04/23 documented as of this encounter
--- OUTSIDE RECORDS SUMMARY | 2024-07-13 14:12 | XMS_ITS | Encounter Summary ---
Author Organization [facility] [place] [address] Care Team Providers Care Health And Nutrition Specialist Name Role Phone Ashley Quirogazac Shields APRN Primary Care Provider [phone] [phone] Encounter Details Date Type Department Care Team [...] 11/02/2024 12:00 PM EDT [place]oint[place] [address] 11/02/2024 1:00 PM EDT [place] [address] Magdalena Peralta MD [facility] [place] [address] 03/01/2025 4:15 PM EDT Office Visit Dermatology at [address] [place] [address] Marek Bonilla MD [address] [facility], [place] [address] documented as of this encounter Visit Diagnoses Not on filedocumented in this encounter Care Teams Health And Nutrition Specialist Relationship Specialty Start Date End Date Deborah Quiroga APRN PCP - General Family Medicine 03/24/16 02/04/23 documented as of this encounter
--- OUTSIDE RECORDS SUMMARY | 2024-07-13 14:12 | XMS_ITS | Encounter Summary ---
Author Organization [facility] Address [facility] Erika ló[place] [address] Care Team Providers Care Service Employee Name Role Phone Deborah Quiroga ANURAG Primary Care Provider +1 [phone] Encounter Details Date Type Department Care Team (Late st Contact Info) Description 01/13/2021 Refill Dermatology at [address] [place] [address] Taylor Malone, CUSTOM BOOKBINDER Social History Tobacco Use Types Packs/Day Years [...] 12:00 PM EDT Appointment [place] [address] 11/02/2024 1:00 PM EDT Office Visit [place] [address] Magdalena Peralta MD [facility] [place] [address] 03/01/2025 4:15 PM EDT Office Visit Dermatology at [address] [place] [address] Marek Bonilla MD [address] [facility] [address], [place] [address] documented as of this encounter Visit Diagnoses Not on filedocumented in this encounter Care Teams Service Employee Relationship Specialty Start Date End Date Deborah Quiroga APRN PCP - General Family Medicine 03/24/16 02/04/23 documented as of this encounter
--- OUTSIDE RECORDS SUMMARY | 2024-07-13 14:12 | XMS_ITS | Encounter Summary ---
Author Organization [facility] Address [facility] [place] [address] Care Team Providers Care Ham Sawyer Name Role Phone Ashley Quirogan Cornelius ANURAG Primary Care Provider +1 [phone] Encounter Details Date Type Department Care Team (Late st Contact Info) Description 03/04/2020 External Results Hematology and Oncology at [place] [phone] TherouxBhumi Social History Tobacco Use Types Packs/Day Years [...] 11/02/2024 12:00 PM EDT Appointment [place] [address] 11/02/2024 1:00 PM EDT Office [place] [address] Magdalena Peralta MD [facility] RHEUMATOLOGY DEPT [place] [phone] 03/01/2025 4:15 PM EDT Office Visit Dermatology at [place] [address] [facility] [place] [address] Marek Bonilla MD [address], [place] [address] documented as of this encounter Procedures Procedure [...] Specialty Start Date End Date Deborah Quiroga, PLASTICS FACTORY WORKER PCP - General Family Medicine 03/24/16 02/04/23 documented as of this encounter
--- OUTSIDE RECORDS SUMMARY | 2024-07-13 14:12 | XMS_ITS | Encounter Summary ---
Author Organization [facility] Address [facility] [place] [address] Care Team Providers Care Hourly Sign Language Interpreter Name Role Phone Deborah Quiroga APRN Primary Care Provider [phone]- [phone] Encounter Details Date Type Department Care Team (Latest Contact Info) Description 10/14/2016 - 10/14/2016 11:59 PM EDT Hospital Encounter Radiology Library at [facility] [place] [address] Alirio Esparza MD Pain Discharge Disposition: Home [...] PM EDT [place] [address] 11/02/2024 1:00 PM EDT Office [place] [address] Magdalena Peralta MD [facility] [place] [address] 03/01/2025 4:15 PM EDT Office Visit Dermatology at [address] [place] [address] Marek Bonilla MD [address] [place] [address], [place] [address] documented as of this encounter Procedures Procedure [...] Esparza MD IMG FILM LIBRARY OR DERABLES [place], [place] documented in this encounter Visit Diagnoses Diagnosis Pain Generalized pain documented in this encounter Care Teams Hourly Sign Language Interpreter Relationship Specialty Start Date End Date Deborah Quiroga, TAPE CONTROL SKIN OR SPAR MILL OPERATOR PCP - General Family Medicine 03/24/16 02/04/23 documented as of this encounter
--- OUTSIDE RECORDS SUMMARY | 2024-07-13 14:12 | XMS_ITS | Encounter Summary ---
Author Organization [facility] [place] [address] Care Team Providers Care Tub Puller Name Role Phone Deborah Quiroga APRN Primary Care Provider [phone] Encounter Details Date Type Department Care Team (Late st Contact Info) Description 06/05/2021 Interpretation Only [address] [address] Deborah Quiroga APRN [address] [phone] Social History Tobacco Use Types Packs/Day Years [...] PM EDT Appointment [place] [address] 11/02/2024 1:00 PM EDT Office [place] [address] Magdalena Peralta MD [facility] [place] [address] 03/01/2025 4:15 PM EDT Office Visit Dermatology at [place] [address] [facility] [place] [address] Marek Bonilla MD [address] [facility] [address], [place] [address] documented as of this encounter Procedures Procedure Name Priority Date/Time Associated Diagnosis Comments DXA CENTRAL SPINE, HIP, AND/OR WHOLE BODY (GENERIC) Routine 06/05/2021 11:58 AM EDT documented in this encounter Results * DXA Central Spine, Hip, and/or Whole Body (Generic) (06/05/2021 11:58 AM EDT) PT CLASS O RAD ADMITDTTM RAD PT RAD INFO [id number]^E VERETT^DEBORAH ^E RAD EXAM DESC XDXAC^DEXA SCAN [...] signed by: Rocael Villatoro MD, [facility] ([phone]), at 06/05/2021 12:00 PM Narrative 06/05/2021 12:00 [...] signed by: Rocael Villatoro MD, [facility]([phone]), at 06/05/2021 12:00 PM Deborah LLAMAS DEXA ORDERABLES documented in this encounter Visit Diagnoses Not on filedocumented in this encounter Care Teams Tub Puller Relationship Specialty Start Date End Date Deborah Quiroga APRN PCP - General Family Medicine 03/24/16 02/04/23 documented as of this encounter
--- OUTSIDE RECORDS SUMMARY | 2024-07-13 14:12 | XMS_ITS | Encounter Summary ---
Author Organization [facility] Address [facility] [place] [address] Care Team Providers Care House Player Name Role Phone Deborah Quiroga APRN Primary Care Provider Encounter Details Date Type Department Care Team (Late st Contact Info) Description 06/18/2017 11:00 AM EST Office Visit Hematology [place] [address] Markel Borjas MD [facility] DR HEMATOLOGY [place] [address] Neutropenia, unspecified type Social History Tobacco Use [...] 06/18/2017 11:00 AM EST Hematology Outpatient Clinic [facility] Hematology Outpatient Consult Note CC: [...] TOUCH PREP, CLOT SECTION, CORE ??BIOPSY); [OSR# [id number], COLLECTED 06/23/2016, 19 SLIDES]: ?1. ??Normocellular marrow [...] a clonal lymphoproliferative or myeloproliferative disorder (OSR# [id number]) Chromosome analysis on the marrow aspirate revealed [...] working the same job and participating in [employer] patients. Past Medical/Surgical History: 1. Leukopenia -element of neutropenia, as noted above 2. Aortic Stenosis -severe -AVR surgery 3. Hypercholesterolemia 4. Depression 5. Hypertension 6. 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 Extremities: No edema. Labs: Hgb= 13 Qjme=364 ANC= 0.6 Imaging As above - reviewed [...] EDT Appointment [place] [address] 11/02/2024 1:00 PM EDT Office [place] [address] Magdalena Peralta MD [facility] [place] [address] 03/01/2025 4:15 PM EDT Office Visit Dermatology at [place] [address] [facility] [address] [place] [address] Marek Bonilla MD [address] [facility] [address], [address] DERMATOLOGY [place], [place] [address] documented as of this encounter Visit Diagnoses Diagnosis Neutropenia, unspecified type documented in this encounter Care Teams House Player Relationship Specialty Start Date End Date Deborah Quiroga APRN PCP - General Family Medicine 03/24/16 02/04/23 documented as of this encounter
--- OUTSIDE RECORDS SUMMARY | 2024-07-13 14:12 | XMS_ITS | Encounter Summary ---
Author Organization [facility] Address [facility] [place] [address] Care Team Providers Care Incident Response Manager Name Role Phone Deborah Quiroga APRN Primary Care Provider [phone] Reason for Visit * Consultation (Routine) - Closed Specialty Diagnoses / Procedures Referred By Contkrystle t Referred To Contact Rheumatology Diagnoses Positive FRANCISCO (antinuclear antibody) Arthralgia, unspecified joint Sandy Wu APRN [address] [place] [address] [facility] Rheumatology [address] [place] [address] Referral ID Status Reason Start Date Expiration Date V isits Requested Visits Authorized [id number] Closed Consult, Test & Treat PCP Updated and/or Approved 01/01/2022 01/01/2023 6 6 Encounter Details Date Type Department Care Team (Latest Contact Info) Description 01/20/2022 10:00 AM EDT [place] [address] Raymond Loredo MD [facility] [place] [address] Rosacea; Raynaud's phenomenon without [...] over radiocarpal or ulnocarpal joints. 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 SJC/TJC 0/0. Hips: Full motion, [...] be done locally or here at [facility] that the current time is not particularly interested it seems Raymond Loredo MD documented in this encounter Plan of Treatment Upcoming Encounters Date Type Department Care Team (Late st Contact Info) Description 11/02/2024 12:00 PM EDT [place] [address] 11/02/2024 1:00 PM EDT [place] [address] Magdalena Peralta MD [facility] [place] [address] 03/01/2025 4:15 PM EDT Office Visit Dermatology at [address] [place] [address] Marek Bonilla MD [address] [facility] [address], [place] [address] Scheduled Referrals Name Type Priority Associated Diagnoses [...] syndrome documented in this encounter Care Teams Incident Response Manager Relationship Specialty Start Date End Date Deborah Quiroga, OPTIMIZATION ENGINEER PCP - General Family Medicine 03/24/16 02/04/23 documented as of this encounter
--- OUTSIDE RECORDS SUMMARY | 2024-07-13 14:12 | XMS_ITS | Encounter Summary ---
Author Organization [facility] [place] [address] Care Team Providers Care Marketing Production Coordinator Name Role Phone Deborah Quiroga APRN Primary Care Provider +1- [phone] Encounter Details Date Type Department Care Team (Latest Contact Info) Description 07/03/2022 12:28 PM EST - 07/03/2022 1:35 PM EST Hospital Encounter Hematology [place] [address] Chronic idiopathic neutropenia Discharge Disposition: Home Social [...] 11/02/2024 12:00 PM EDT Appointment [place] [address] 11/02/2024 1:00 PM EDT Office [place] [address] Magdalena Peratla MD [facility] [place] [address] 03/01/2025 4:15 PM EDT Office Visit Dermatology at [place] [address] [place] [phone] Marek Bonilla MD [address] [place] [address] documented as of this encounter Procedures Procedure [...] 12:40 PM EST) Neutrophil % 72.9 % [facility] Neutrophil Absolute 2.61 1.70 - 6.10 x10(3)/mc L [facility] Lymph % 18.4 % [facility] Lymphocytes Abs 0.7(L) 0.9 - 3.2 x10(3)/mc L [facility] Monocyte % 8.4 % [facility] Monocyte Abs 0.3 0.3 - 0.9 x10(3)/ L [facility] Eos % 0.0 % [facility] Eosinophils Abs 0.0 0.0 - 0.4 x10(3)/ L [facility] Basophil % 0.3 % [facility] Baso [...] Absolute 0.00 0.00 - 0.04 x10(3)/ L [facility] Blood 07/03/2022 12:4 0 PM EST 07/03/2022 1:03 PM EST Narrative Resulting Agency Comment Spec In Lab Markel Borjas MD HEMATOLOGY ORDERAB LES [facility] [place] [address] * (ABNORMAL) Hemogram (07/03/2022 12:40 PM EST) White Blood Cell 3.6(L) 4.0 - 9.5 x10(3)/mc L [facility] Red Blood Cell 3.61(L) 4.00 - 5.21 x10(6)/mc L [facility] Hemoglobin 11.7 11.7 - 15.5 g/dL [facility] Hematocrit 34.5(L) 35.7 - 45.8 % [facility] Mean Cell Volume 95.6(H) 82.6 - 94.4 fL [facility] Mean Cell Hemoglobin 32.4(H) 27.1 - 32.0 pg [facility] Mean Cell Hemoglobin Concentration 33.9 31.7 - 35.0 g/dL [facility] Platelet 171 145 - 357 x10(3)/mc L [facility] RDW Standard Deviation 40.5 37.0 - 46.0 [facility] RDW coefficient of variation 11.5 11.5 - 14.1 % [facility] Mean Platelet Volume 9.2 7.6 - 12.9 fL [facility] NRBC% auto 0.0 % [facility] NRBC Absolute 0.000 0.000 - 0.000 x10(3)/mc L [facility] Blood 07/03/2022 12:4 0 PM EST 07/03/2022 1:03 PM EST Narrative Resulting Agency Comment Spec In Lab Markel Borjas MD HEMATOLOGY ORDERAB LES [facility] [place] [address] * (ABNORMAL) Comprehensive metabolic panel (non-fasting) (07/03/2022 12:40 PM EST) Glucose 92 65 - 199 mg/dL [facility] Comment:Diabetes: >=200 mg/d L plus symptoms Blood Urea Nitrogen 22(H) 8 - 18 mg/dL [facility] [...] mmol/L [facility] Carbon Dioxide 23 22 - 31 mmol/L [facility] Anion Gap 11 5 - 15 mmol/L [facility] Calcium 10.1 8.5 - 10.5 mg/dL [facility] Protein, Total 7.6 6.1 - 8.0 g/dL [facility] Albumin 4.1 3.2 - 5.2 g/dL [facility] Aspartate Aminotransferase 25 0 - 30 unit/L [facility] Alanine Aminotransferase 14 0 - 30 unit/L [facility] Alkaline Phosphatase 80 35 - 105 unit/L [facility] Bilirubin, Total 0.3 0.2 - 1.3 mg/dL [facility] Est Glomerular Filtration Rate 81 >=60 mL/min/1. 73 m?? [facility] [...] MD CHEMISTRY ORDERABL ES Performing Organization Address City/State/[facility] Co de Phone Number [facility] [place] [address] documented in this encounter Visit Diagnoses Diagnosis Chronic idiopathic neutropenia Other neutropenia documented in this encounter Care Teams Marketing Production Coordinator Relationship Specialty Start Date End Date Deborah Quiroga, ANURAG PCP - General Family Medicine 03/24/16 02/04/23 documented as of this encounter
--- OUTSIDE RECORDS SUMMARY | 2024-07-13 14:12 | XMS_ITS | Encounter Summary ---
Author Organization [facility] [place] [address] Care Team Providers Care Curtain Inspector Name Role Phone Deborah Quiroga APRN Primary Care Provider +1- [phone] Encounter Details Date Type Department Care Team (Late st Contact Info) Description 06/05/2021 Interpretation Only [address] [address] Deborah Quiroga APRN [address] [phone] Social History Tobacco Use Types Packs/Day Years [...] 11/02/2024 12:00 PM EDT Appointment [place] [phone] 11/02/2024 1:00 PM EDT Office [place] [address] Magdalena Peralta MD [facility] [place] [address] 03/01/2025 4:15 PM EDT Office Visit Dermatology at [place] [address] [place] [address] Marek Bonilla MD [address], [place] [address] documented as of this encounter Procedures Procedure Name Priority Date/Time Associated Diagnosis Comments MAMMO SCREENING CAD BILATERAL Routine 06/05/2021 11:42 AM EDT documented in this encounter Results * Mammo Screening Cad Bilateral (06/05/2021 11:42 AM EDT) PT CLASS O DH RAD ADMITDTTM DH RAD PT DH RAD MD INFO [phone]^EV ERETT^DEBORAH^E DH RAD EXAM DESC MADDSC^SCREEN MAMMO [...] questions please contact the health intensive care ambulance paramedic that requested your imaging first. ? Electronically signed by: Rocael Villatoro MD, [facility] ([phone]), at 06/05/2021 1:27 PM Narrative 06/05/2021 1:27 [...] have questions please contactthe health intensive care ambulance paramedic that requested your imaging first. Electronically signed by: Rocael Villatoro MD, [facility]([phone]), at 06/05/2021 1:27 PM Deborah Quiroga APRN IMG MAMMO ORDERABLE S documented in this encounter Visit Diagnoses Not on filedocumented in this encounter Care Teams Curtain Inspector Relationship Specialty Start Date End Date Deborah Quiroga APRN PCP - General Family Medicine 03/24/16 02/04/23 documented as of this encounter
--- OUTSIDE RECORDS SUMMARY | 2024-07-13 14:12 | XMS_ITS | Encounter Summary ---
Author Organization [facility] Address [facility] [place] [address] Care Team Providers Care Plate Shop Helper Name Role Phone Deborah Quiroga APRN Primary Care Provider +1- [phone] Encounter Details Date Type Department Care Team (Latest Contact Info) Description 07/03/2022 1:36 PM EST - 07/03/2022 11:59 PM EST Hospital Encounter Hematology [place] [address] Discharge Disposition: Home Social History Tobacco Use [...] 11/02/2024 12:00 PM EDT Appointment [place] [address] 11/02/2024 1:00 PM EDT Office [place] [address] Magdalena Peralta MD [facility] [place] [address] 03/01/2025 4:15 PM EDT Office Visit Dermatology at [place] [address] [place] [address] Marek Bonilla MD [address], [address] DERMATOLOG[place], [place] [phone] documented as of this encounter Procedures Procedure [...] [facility]/ZIP Co de Phone Number [facility] [place] [address] * Vitamin B12 (07/03/2022 1:59 PM EST) Vitamin B12 449 232 - 1,245 pg/mL [facility] Blood Venous Draw / Unknown 07/03/2022 1:59 PM EST 07/03/2022 2:13 PM EST Narrative Resulting Agency Comment Spec In Lab Markel Borjas MD CHEMISTRY ORDERABL ES Performing Organization Address City/[facility]/ZIP Co de Phone Number [facility] [place] [address] documented in this encounter Visit Diagnoses Not on filedocumented in this encounter Care Teams Plate Shop Helper Relationship Specialty Start Date End Date Deborah Quiroga APRN PCP - General Family Medicine 03/24/16 02/04/23 documented as of this encounter
--- OUTSIDE RECORDS SUMMARY | 2024-07-13 14:12 | XMS_ITS | Encounter Summary ---
Author Organization [facility] Address [facility] [place] [address] Care Team Providers Care Rn Delivery Name Role Phone Ashley Quirogazac Shields APRN Primary Care Provider +1 [phone] Encounter Details Date Type Department Care Team (Latest Contact Info) Description 06/22/2022 10:00 AM EST Office [place] [address] Raymond Loredo MD [facility] [place] [address] Raynaud's phenomenon without gangrene; Positive FRANCISCO (antinuclear [...] can be done locally or here at [facility] that the current time is [...] for surgery by Dr. Rogers here at [facility]. In addition to painful dysesthesias [...] over radiocarpal or ulnocarpal joints. 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 SJC/TJC 0/0. Knees: Decreased flexion [...] 11/02/2024 12:00 PM EDT Appointment [place] [address] 11/02/2024 1:00 PM EDT Office [place] [phone] Magdalena Peralta MD [facility] [place] [address] 03/01/2025 4:15 PM EDT Office Visit Dermatology at [place] [address] [place] [address] Marek Bonilla MD [address] [facility] [place] [address] documented as of this encounter Visit Diagnoses Diagnosis Raynaud's phenomenon without gangrene Positive FRANCISCO (antinuclear antibody) Other and unspecified nonspecific immunological findings Primary osteoarthritis involving multiple joints Cervical disc disorder at C6-C7 level with radiculopathy documented in this encounter Care Teams Rn Delivery Relationship Specialty Start Date End Date Deborah Quiroga APRN PCP - General Family Medicine 03/24/16 02/04/23 documented as of this encounter
--- OUTSIDE RECORDS SUMMARY | 2024-07-13 14:12 | XMS_ITS | Encounter Summary ---
[place] [address] Care Team Providers Care Aluminum Boat Assembly Supervisor Name Role Phone Junaid Deborah Shields APRN Primary Care Provider +1 [phone] Encounter Details Date Type Department Care Team (Late st Contact Info) Description 10/20/2016 11:20 AM EDT Office Visit [place] [address] Alirio Esparza MD S/P AVR Social History [...] all of her postoperative tests done at [facility]. Her echo shows a well-seated valve. Her EF, for some reason, was read as in the 45% to 50% range. She had a normal EF to start. I think that will need to be repeated at [facility]. She has no perivalve leak. Her [...] should continue to see Dr. Burrell, her associate counsel at [facility]. cc: Dr. Burrell documented in this encounter Plan of Treatment Upcoming Encounters Date Type Department Care Team (Late st Contact Info) Description 11/02/2024 12:00 PM EDT Appointment [place] [address] 11/02/2024 1:00 PM EDT Office Visit [place] [phone] Magdalena Peralta MD [facility] [place] [address] 03/01/2025 4:15 PM EDT Office Visit Dermatology at [address] [place] [address] Marek Bonilla MD [address], [address] [place] [address] documented as of this encounter Visit Diagnoses Diagnosis S/P AVR Heart valve replaced by other means documented in this encounter Care Teams Aluminum Boat Assembly Supervisor Relationship Specialty Start Date End Date Deborah Quiroga, METAL DRILL PRESS OPERATOR PCP - General Family Medicine 03/24/16 02/04/23 documented as of this encounter
--- OUTSIDE RECORDS SUMMARY | 2024-07-13 14:12 | XMS_ITS | Encounter Summary ---
Author Organization [facility] Address [facility] [place] [address] Care Team Providers Care Fabric Worker Foreman Name Role Phone Deborah Quiroga APRN Primary Care Provider +1 [phone] Reason for Visit * Reason Comments Follow-up Encounter Details Date Type Department Care Team (Late st Contact Info) Description 07/03/2022 1:30 PM EST Office Visit [place] [address] Markel Borjas MD [facility] [address] HEMAT[place] [address] Consuelo Sommer APRN [facility] [address] [place]EMAT[place] [address] Chronic idiopathic neutropenia; Dysuria Social History Tobacco [...] 1:30 PM EST Hematology Outpatient [facility] [...] TOUCH PREP, CLOT SECTION, CORE ??BIOPSY); [OSR# [id number], COLLECTED 06/23/2016, 19 SLIDES]: ?1. ??Normocellular marrow [...] a clonal lymphoproliferative or myeloproliferative disorder (OSR# [id number]) Chromosome analysis on the marrow aspirate revealed [...] - neg Works at [employer] in [employer] department Plays competitive scrabble, and goes to [employer] Family History: No known primary marrow [...] intact. Extremities: No edema. Labs: Hgb= 11.7 Bido=412 ANC= 2.5 Imaging As above - reviewed [...] 11/02/2024 12:00 PM EDT [place] [address] 11/02/2024 1:00 PM EDT [place] [address] Magdalena Peralta MD [facility] [place] [address] 03/01/2025 4:15 PM EDT Office Visit Dermatology at [place] [address] [facility] [place] [address] Marek Bonilla MD [address], [place] [address] documented as of this encounter Procedures Procedure [...] - GEN ERAL ORDERABLES Performing Organization Address City/[facility]/ZIP Co de Phone Number [facility] [place] [address] * (ABNORMAL) Urinalysis Microscopic Exam (07/03/2022 2:00 [...] Borjas MD URINE ORDERABLES Performing Organization Address City/[facility]/ZIP Co de Phone Number [facility] [place] [address] * (ABNORMAL) Urinalysis with reflex Culture (07/03/2022 [...] HOSPITAL LABORATORY Leukocytes, Urine Dipstick Small(A) Negative [facility] Appearance, Urine Dipstick Clear Clear [facility] Specific [place] Urine Automated 1.022 1.005 - 1.030 [facility] Color, Urine Dipstick Yellow Yellow [facility] Reflex to Culture Yes [facility] Clean Catch Urine 07/03/2022 2:00 PM EST 07/03/2022 2:29 PM EST Narrative Resulting Agency Comment Spec In Lab Markel Borjas MD URINE ORDERABLES [facility] [place] [address] * (ABNORMAL) Comprehensive metabolic panel (non-fasting) (07/03/2022 [...] ORDERABL ES [facility] [place] [address] documented in this encounter Visit Diagnoses Diagnosis Chronic idiopathic neutropenia Other neutropenia Dysuria documented in this encounter Care Teams Fabric Worker Foreman Relationship Specialty Start Date End Date Deborah Quiroga, RATE ANALYST PCP - General Family Medicine 03/24/16 02/04/23 documented as of this encounter
--- OUTSIDE RECORDS SUMMARY | 2024-07-13 14:12 | XMS_ITS | Encounter Summary ---
Author Organization [facility] Address [facility] [place] [address] Care Team Providers Care Die Engraver Name Role Phone Deborah Quiroga ANURAG Primary Care Provider +1 [phone] Encounter Details Date Type Department Care Team (Late st Contact Info) Description 07/21/2017 Orders Only [place] [address] Alexandrea Greenwood RN Other neutropenia [...] 11/02/2024 12:00 PM EDT Appoint[place] [address] 11/02/2024 1:00 PM EDT Office [place] [address] Magdalena Peralta MD [facility] [place] [address] 03/01/2025 4:15 PM EDT Office Visit Dermatology at [address] [phone] Marek Bonilla MD [address] [place] [address] documented as of this encounter Visit Diagnoses Diagnosis Other neutropenia documented in this encounter Care Teams Die Engraver Relationship Specialty Start Date End Date Deborah Quiroga APRN PCP - General Family Medicine 03/24/16 02/04/23 documented as of this encounter
--- OUTSIDE RECORDS SUMMARY | 2024-07-13 14:13 | XMS_ITS | Encounter Summary ---
[place] [address] Care Team Providers Care Preventive Medicine Specialist Name Role Phone Ashley Quirogan Cornelius ANURAG Primary Care Provider +1- [phone] Reason for Visit * Reason Onset Date Comments Medication Management 09/14/2016 Encounter Details Date Type Department Care Team (Late st Contact Info) Description 09/14/2016 Telephone Hematology [place] [address] Alexandrea Greenwood, rehab/pre vocational counselor Management Social History Tobacco Use Types [...] 09/14/2016 9:12 AM EST Message received from racing secretary and handicapper: Purnima called, asking for clarification on when [...] 11/02/2024 12:00 PM EDT Appointment [place] [address] 11/02/2024 1:00 PM EDT Office [place] [address] Magdalena Perlata MD [facility] [place] [address] 03/01/2025 4:15 PM EDT Office Visit Dermatology at [place] [address] [place] [address] Marek Bonilla MD [address] [place] [address] documented as of this encounter Visit Diagnoses Not on filedocumented in this encounter Care Teams Preventive Medicine Specialist Relationship Specialty Start Date End Date Deborah Quiroga APRN PCP - General Family Medicine 03/24/16 02/04/23 documented as of this encounter
--- OUTSIDE RECORDS SUMMARY | 2024-07-13 14:13 | XMS_ITS | Encounter Summary ---
Author Organization [facility] Address [facility] [place] [address] Care Team Providers Care Transition Specialist Name Role Phone Deborah Quiroga ANURAG Primary Care Provider +1 [phone] Encounter Details Date Type Department Care Team (Latest Contact Info) Description 08/18/2016 4:40 PM EST Laboratory [place] [address] Aortic valve stenosis, unspecified etiology [...] 11/02/2024 12:00 PM EDT Appointment [place] [address] 11/02/2024 1:00 PM EDT Office [place] [address] Magdalena Peralta MD [facility] [place] [address] 03/01/2025 4:15 PM EDT Office Visit Dermatology at [address] [phone] Marek Bonilla MD [address] [place] [address], [place] [address] documented as of this encounter Procedures Procedure Name Priority Date/Time Associated Diagnosis Comments ABORH RECHECK STATUS Routine 08/18/2016 4:50 PM EST TYPE AND SCREEN, SDP (FUTURE SURGERY, [facility] SAME DAY PROGRAM ONLY) Routine 08/18/2016 4:50 [...] 4:50 PM EST) ABORH Type Recheck Completed [facility] Blood specimen (specimen) 08/18/2016 4:50 PM EST 08/18/2016 5:27 PM EST Narrative Resulting Agency Comment Spec In Lab Alirio Esparza MD BLOOD BANK LAB [place] [facility] Organization Address City/State/ZIP Co de Phone Number [facility] [place] [address] * Antibody screen (08/18/2016 4:50 PM EST) Ab Screen Interp Negative [facility] Expires at [id number] on: 09/24/2016 [facility] Comment: Corrected from 09/17/16 12:00 [Unknown] on 09/09/16 02:32 by Shireen Treviño Blood specimen (specimen) 08/18/2016 4:50 PM EST 08/18/2016 5:11 PM EST Narrative Resulting Agency Comment Spec In Lab Alirio Esparza MD BLOOD BANK LAB [place] Performing Organization Address City/[facility]/ZIP Co de Phone Number [facility] [place] [address] * ABO/Rh Typing (08/18/2016 4:50 PM EST) ABORH Type B Pos [facility] Blood specimen (specimen) 08/18/2016 4:50 PM EST 08/18/2016 5:11 PM EST Narrative Resulting Agency Comment Spec In Lab Alirio Esparza MD BLOOD BANK LAB [place] Performing Organization Address [facility] de Phone Number [facility] [place] [address] * Basic Metabolic Panel (non-fasting) (08/18/2016 4:50 PM EST) [facility] Glucose 82 65 - 199 mg/dL [facility] Comment:Diabetes: >=200 mg/d L plus symptoms Blood Urea Nitrogen 12 8 - 18 mg/dL [facility] Creatinine 0.87 0.70 - 1.20 mg/dL [facility] Comment: Please note that the pediatric reference intervals supplied above were not validated at [facility]. Results from pediatric patients should be interpreted [...] the following links into your internet browser. [email or web address] Blood specimen (specimen) 08/18/2016 4:50 PM EST 08/18/2016 5:03 PM EST Narrative Resulting Agency Comment Spec In Lab Alirio Esparza MD CHEMISTRY ORDERABLE S Performing Organization Address City/State/[facility] Co de Phone Number [facility] [place] [address] documented in this encounter Visit Diagnoses Diagnosis Aortic valve stenosis, unspecified etiology documented in this encounter Care Teams Transition Specialist Relationship Specialty Start Date End Date Deborah Quiroga APRN PCP - General Family Medicine 03/24/16 02/04/23 documented as of this encounter
--- OUTSIDE RECORDS SUMMARY | 2024-07-13 14:13 | XMS_ITS | Encounter Summary ---
[place] [address] Care Team Providers Care Hvac Designer Name Role Phone Junaid Deborah Shields APRN Primary Care Provider [phone] Reason for Visit * Auth/Cert Specialty Diagnoses / Procedures Referred By Crispin t Referred To Contact Diagnoses Aortic stenosis Procedures PRO REPLACE AORT VALV, PROSTH VALV @REPLACE AORTIC VALVE, OPEN, W\CPB, W\PROSTHETIC VALVE (WRVU 41.32) Referral ID Status Reason Start Date Expiration Date Visits Re quested Visits Authorized [id number] 1 1 Encounter Details Date Type Department Care Team (Late st Contact Info) Description 09/21/2016 7:30 AM EST - 09/21/2016 12:04 PM EST [place] [address] Alirio Esparza MD @REPLACE AORTIC VALVE, OPEN, [...] in 1-2 weeks. Patient to follow-up with Residential Program Director, Dr. Antelmo Burrell, in two weeks. Patient to follow-up with Cardiac Surgery, Dr. Alirio Esparza, to be scheduled for before 10/19/2016, with CXR, EKG, and Echo. Inpatient Provider Contact Information: [facility] Section of Cardiac Surgery [facility] [address] FAX [phone] Discharge Diagnoses (Hospital Problems) Primary Diagnoses: Secondary [...] Alirio Esparza and/or the Cardiac Surgery Physician Scanning Supervisor Team may be reached at . [...] to your dentist. Please refer to the [place] [employer] [...] after your return appointment with Dr. Alirio oJnes. You may use a Jacumba Track or treadmill but avoid any pulling [...] friends, go to a movie, go to confucianism, etc. Heavy activities: No hunting, skiing, jogging, [...] low fat, low cholesterol, [place] [employer] Diet. Driving: No driving until [...] AM Markel Borjas MD [facility] Onc [phone] Future Orders Complete By Expires Echocardiogram Transthoracic([place]) [KBF814 Custom] 10/18/2016 (Approximate) 09/18/2017 Process Instructions: If the Echocardiogram is to be PERFORMED in a DH location other than [place]--STOP and order [id number], Echocardiogram South/External. Scheduling Instructions: Questions: Is a Bubble Study requested?: No Does the patient have Congenital Heart Disease?: No Does patient require sedation?: None GA rationale: Should this service be billed to the research sponsor?: EKG 12 Lead [EKG1 Custom] 10/18/2016 (Approximate) 09/25/2017 Process Instructions: Scheduling Instructions: Questions: Which DH location will this be performed?: [place] Is a rhythm strip needed?: No If EKG Reason is Pre-op Evaluation, indicate diagnosis for surgery.: Should this service be billed to the research sponsor?: XR Chest PA & Lateral (Generic) [02504 80928 Custom] 10/18/2016 (Approximate) 09/25/2017 Process Instructions: Scheduling Instructions: Questions: Where will study be performed?: [facility]- Radiology Portable exam?: No Reason for exam and clinical history: s/p AVReplacement, patch annuloplasty 1 month f/u Other pertinent information: Stat read required?: Date of injury if applicable: Requested Time: Referral to Cardiac Rehab [CNA641 Custom] As directed Process Instructions: If no progress note charted, please enter Clinical details in comments. Scheduling Instructions: Questions: My question or request is: s/p AVR. Cardiac rehab at [facility] Referral to Home Health - at DISCHARGE [OGO0606 CPT(R)] As directed Process Instructions: Scheduling Instructions: Comments: DOCUMENTATION FOR VNA SERVICES (INCLUDING THOSE PATIENTS WITH MEDICARE COVERAGE REQUIRING HOME VNA SERVICES AND/OR HOSPICE SERVICES) PATIENT'S LOCATION: Purnim[address] [address] (home) No relevant phone numbers on file. Moisture Meter Operator's Name: self In discussion with the attending physician, it is certified that this patient is under their care and that they, or a Nurse Practitioner, or Physician Scanning Supervisor who is working directly with them, [...] [facility] PHONE: [phone] FAX: [phone] RN orders: Cardiopulmonary assessment, incisional assessment, assess [...] issues please call the Cardiac SurgeryOffice at [phone] FOR MEDICARE ONLY: In discussion with the [...] AFTER 09/30/16 Signed: Crispin Aranda PA-C 09/25/2016 [facility] Section of Cardiac Surgery [facility] [address] FAX [phone] Date: 09/25/2016 CC: ANURAG Alford Caryn E, APRN [address] [place] [address] documented in this encounter Discharge Instructions * [...] Alirio Esparza and/or the Cardiac Surgery Physician Scanning Supervisor Team may be reached at . [...] to your dentist. Please refer to the [place] [employer] [...] Dr. Alirio Jones. You may use a Jacumba Track or treadmill but avoid any pulling [...] friends, go to a movie, go to confucianism, etc. Heavy activities: No hunting, skiing, jogging, [...] low fat, low cholesterol, [place] [employer] Diet. Driving: No driving until [...] PM EST Cardiac Surgery Progress Note: ID: [id number] S/p AVR, patch aortoplasty POD#2. PMH of [...] Gas) No results found for: PHART, PO2ART, [id number] Assessment/Plan: TPW out this am. (+) BM. [...] Signed: Crispin Aranda PA-C 09/24/2016 Team pager: [phone]; [phone] after 5pm [facility] Section of Cardiac Surgery * Leonor Henson S, MARKETING PR INTERN - 09/23/2016 10:48 AM EST Cardiac Surgery Progress Note: ID: [id number] s/p AVR, patch aortoplasty POD#2. PMH of [...] Gas) No results found for: PHART, PO2ART, [id number] Assessment/Plan: s/p AVR, patch aortoplasty POD#2. PMH of Neutropenia, HLD, HTN, Depression, obesity, . Transferred from [facility] yesterday and doing well. Pathway. Will [...] AM EST Cardiac Surgery Progress Note: ID: [id number] s/p AVR, patch aortoplasty POD#1. PMH of [...] NT, ND, soft. Ext: Moves all extremities. [place], well perfused. Incisions: C/D/I Tubes/Lines/Drains: PIV, richi, [...] left pleural effusion. T/L/D Al ETT CVL [place] CT Pacing wires ASSESSMENT, MANAGEMENT, and DECISION [...] Outcome (s) achieved Date Met: 09/25/16 09/25/16 2882 Coping/Psychosocial Plan Of Care Reviewed With patient [...] health, home with outpatient services Lalitha Cohen [facility] Pager: [phone] Inpatient Physical Therapy Patient status, treatment interventions, and goals discussed with student. I am in agreement with all details and associated flowsheet rows as documented and was present for all aspects of the patient treatment session. Nery Jaramillo, CANDY Pager [phone] Problem: Acute Rehab Services Goal & Intervention Plan Goal: Bed Mobility Goal Stand Alone Therapy Goal Outcome: Ongoing (Interventions Implemented as Appropriate) 09/22/16 1611 09/25/16 0947 Bed Mobility Goal Bed Mobility Goal, Time to Achieve 4 days -- Bed Mobility Goal, Activity Type scoot/bridge;supine to sit/sit to supine -- Bed Mobility Goal, [place] Level independent -- Bed Mobility Goal, Additional [...] Achieve 4 days -- Gait Training Goal, [place] Level independent -- Gait Training Goal, Distance [...] assist, home with home health [facility] Pager: [phone] Inpatient Physical Therapy Patient status, treatment interventions, and goals discussed with student. I am in agreement with all details and associated flowsheet rows as documented and was present for all aspects of the patient treatment session. Nery Jaramillo, FIELD CASE MANAGER Pager [phone] Problem: Acute Rehab Services Goal & Intervention Plan Goal: Bed Mobility Goal Stand Alone Therapy Goal Outcome: Ongoing (Interventions Implemented as Appropriate) 09/22/16161009/23/161411 Bed Mobility Goal Bed Mobility Goal, Time to Achieve 4 days -- Bed Mobility Goal, Activity Type scoot/bridge;supine to sit/sit to supine -- Bed Mobility Goal, [place] Level independent -- Bed Mobility Goal, Additional [...] Achieve 4 days -- Gait Training Goal, [place] Level independent -- Gait Training Goal, Distance [...] days -- Transfer Training Goal, Activity Type beb-pi-zmwlt/wyzgm-iy-ppl;esa-iu-diizd/afwdh-kc-rli -- Transfer Train Goal, [place] Level independent -- Transfer Training Goal, Additional Goal abides sternal precautions -- Transfer Training Goal, Outcome -- goal met * Consult Note - Jana Crenshaw RN - 09/23/2016 9:41 AM EST [facility]ATION [...] Another Service: (cardiac rehab) NICOLE HERNANDEZ, PT Pager:[phone] Inpatient Physical Therapy Problem: Acute Rehab Services Goal & Intervention Plan Goal: Bed Mobility Goal Stand Alone Therapy Goal Outcome: Ongoing (Interventions Implemented as Appropriate) 09/22/161610 Bed Mobility Goal Bed Mobility Goal, Time to Achieve 4 days Bed Mobility Goal, Activity Type scoot/bridge;supine to sit/sit to supine Bed Mobility Goal, [place] Level independent Bed Mobility Goal, Additional Goal able to abide sternal precautions during transfers Goal: Gait Training Goal Stand Alone Therapy Goal Outcome: Ongoing (Interventions Implemented as Appropriate) 09/22/161610 Gait Training Goal Gait Training Goal, Date Established 09/22/16 Gait Training Goal, Time to Achieve 4 days Gait Training Goal, [place] Level independent Gait Training Goal, Distance to Achieve ascend and descends 2 steps independently Goal: Goal Transfer Training Stand Alone Therapy Goal Outcome: Ongoing (Interventions Implemented as Appropriate) 09/22/161610 Goal Transfer Training Transfer Training Goal, Time to Achieve 4 days Transfer Training Goal, Activity Type ypo-lm-tedhe/wtkpo-iv-tnu;eou-zw-ffsef/qaqgj-pb-mjg Transfer Train Goal, [place] Level independent Transfer Training Goal, Additional Goal [...] of completing AD's at home, chooses her wejfly-zd-vuo, Martha Thacker (home) for her DPOAH, 2nd choice in friend, Nitesh Rad, [place], [place] Current Coping/Education/Information Needs: patient sitting up [...] close by, Rashad & Raymond, and her rzfchy-yu-cdq Martha Thacker who she has chosen to be her DPOAH. Also has a friend Nitesh Leroy who lives in [place], [place], also her DPOAH choice. Behavioral Health History: none on file in e[facility] Substance Use/Abuse: none on file in [facility] Other Pertinent/Service Specific Information: none Health/Prescription Coverage: Primary Insurance: [employer] Secondary Insurance: none Prescription Coverage: yes, per patient no issues Preferred Pharmacy: ?? Other: none Primary Care Provider: Deborah Quiroga, MARKETING PR INTERN [phone] Patient/Caregiver Goals of Treatment: per medical team recommendations at discharge for CT surgery Potential Needs for Transition of Care: Rehab/SNF: TBD Home Health: TBD DME: no Dialysis: no Community Resources: non3 Transportation: ride home with a friend Other: none Anticipated Barriers to Discharge/Special Considerations: none anticipated at this time Plan: patient will need VNA services at discharge. The patient/marketing development representative has been provided a list of Home Health Agencies/DME vendors which servetheir preferred geographic area. A letter describing our affiliations was reviewed with them and they were educated about their right to choose where referrals are placed. Patient requests referral to: [facility]. PHONE: [phone] FAX: [phone] Expected date of discharge: Fri/Sat? CM called VNA to confirm referral, talked with VALDO Bunn/intake who stated she was familiar w/patient & would monitor her progress through curaspan. Referral routed to the Delinquent Tax Collector for matching with agency/vendor and to provide any required information. A member of the Care Management team will continue to monitor progress, follow for continuity of care and assist with transition of care planning. Amanda Moreno RN Pager: [phone] * Op Note - Alirio Esparza MD - 09/21/2016 12:53 PM EST 09/23/2016 Purnima Thacker 1955 [id number] Preoperative Diagnosis: Symptomatic aortic stenosis Postoperative Diagnosis: Symptomatic aortic stenosis Procedure: Aortic valve replacement: Bovine Pericardial 25 mm Surgeon: Alirio Esparza M.D. Scanning Supervisor: Philip BALL Anesthesia: General endotracheal anesthesia [...] applied. The patient was transported to the [facility] on levo. All counts were correct. [...] Operative Note Patient Name: Purnima Thacker : [id number] MR#: [id number] Case Date: 09/21/2016 Surgeon: Surgeon(s) and Role: * Alirio Esparza MD - Primary * Nico Palacios PA - Physician Scanning Supervisor Preoperative diagnosis: Postoperative diagnosis: Procedure(s) (LRB): [...] PM EDT [place] [address] 11/02/2024 1:00 PM EDT [place] [phone] Magdalena Peralta MD [address] [facility] [place] [address] 03/01/2025 4:15 PM EDT Office Visit Dermatology at [place] [address] [place] [phone] Marek Bonilla MD [address], [place] [address] Scheduled Orders Name Type Priority Associated Diagnoses [...] IMPLANTABLE DEVICES SCAN 09/26/2016 12:00 AM EST SPARK PLUG ASSEMBLER SCAN 09/26/2016 12:00 AM EST POTASSIUM Routine [...] SCAN EXT O RDR/RSLT * SCAN DOC: SPARK PLUG ASSEMBLER (09/26/2016 12:00 AM EST) Anatomical Region Laterality Modality Other Narrative 09/26/2016 12:00 AM EST Ordered by an unspecified provider. Scanning Provider MEDIA MGR SCAN EXT O RDR/RSLT * Potassium (09/25/2016 4:32 AM EST) Pathologist [facility] [place] Potassium 4.4 3.5 - 5.0 mmol/L [facility] [...] MD CHEMISTRY ORDERABLE S Performing Organization Address City/State/[facility] Co de Phone Number [facility] [place] [place] [address] * (ABNORMAL) Differential, Automated (09/24/2016 9:56 AM EST) Pathologist [facility] [place] Neutrophil % 76.8 % [facility] Neutrophil Absolute 7.79(H) 1.70 - 6.10 x10(3)/mc L [facility] Lymph % 11.1 % [facility] Lymphocytes Abs 1.1 0.9 - 3.2 x10(3)/mc L [facility] Monocyte % 8.5 % [facility] Monocyte Abs 0.9 0.3 - 0.9 x10(3)/mc L [facility] Eos % 0.5 % [facility] Eosinophils Abs 0.0 0.0 - 0.4 x10(3)/mc L [facility] Basophil % 0.2 % [facility] [...] HEMATOLOGY ORDERABL ES [facility] [place] [place] [address] * (ABNORMAL) Hemogram (09/24/2016 9:56 AM EST) [...] MEDICAL [facility] NRBC% auto 1.1 % [facility] NRBC Absolute 0.110(H) 0.000 - 0.000 x10(3)/mc L [facility] Blood specimen (specimen) 09/24/2016 9:56 AM EST 09/24/2016 10:04 AM EST Narrative Resulting Agency Comment Spec In Lab Alirio Esparza MD HEMATOLOGY ORDERABL ES [facility] [place] [address] * (ABNORMAL) Basic Metabolic Panel (non-fasting) (09/24/2016 [...] the following links into your internet browser. [email or web address] Blood specimen (specimen) 09/24/2016 9:56 AM EST 09/24/2016 10:04 AM EST Narrative Resulting Agency Comment Spec In Lab Alirio Esparza MD CHEMISTRY ORDERABLE S [facility] [place] [id number] * XR Chest PA & Lateral (Generic) [...] CHEMISTRY ORDERABLE S [facility] [place] [address] * POCT Glucose (09/22/2016 8:17 AM EST) Glucose, POC 131 65 - 199 mg/dL [facility] Comment: Supplemental ranges: <140 mg/dL before meals <180 mg/dL all other times of the day Blood specimen (specimen) 09/22/2016 8:17 AM EST 09/22/2016 8:17 AM EST Alirio Esparza MD POINT OF CARE TEST ORDERABLES Performing Organization Address City/[facility]/ZIP Co de Phone Number [facility] [place] [address] * POCT Glucose (09/22/2016 4:01 AM EST) Glucose, POC 135 65 - 199 mg/dL [facility] Comment: Supplemental ranges: <140 mg/dL before meals <180 mg/dL all other times of the day Blood specimen (specimen) 09/22/2016 4:01 AM EST 09/22/2016 4:01 AM EST Alirio Esparza MD POINT OF CARE TEST ORDERABLES [facility] [place] [address] * Scan, Peripheral Blood (09/22/2016 4:00 AM EST) Plat estimate Normal [facility] RBC Morphology Abnormal [facility] Macrocyte 1-5 /HPF [facility] Plat, Giant Less than 1 /HPF [facility] Blood specimen (specimen) 09/22/2016 4:00 AM EST 09/22/2016 4:34 AM EST Narrative Resulting Agency Comment Spec In Lab Alirio Esparza MD HEMATOLOGY ORDERABL ES Performing Organization Address City/[facility]/ZIP Co de Phone Number [facility] [place] [place] [address] * Electrolytes panel (09/22/2016 4:00 AM EST) Pathologist [facility] [place] Sodium 145 135 - 145 mmol/L [facility] [...] MD CHEMISTRY ORDERABLE S Performing Organization Address City/[facility]/ZIP Co de Phone Number [facility] [place] [place] [address] * (ABNORMAL) Differential, Automated (09/22/2016 4:00 AM EST) Neutrophil % 70.9 % [facility] Neutrophil Absolute 5.33 1.70 - 6.10 x10(3)/mc L [facility] Lymph % 9.1 % [facility] Lymphocytes Abs 0.7(L) 0.9 - 3.2 x10(3)/[facility] Monocyte % 18.0 % [facility] Monocyte Abs 1.4(H) 0.3 - 0.9 x10(3)/[facility] Eos % 0.0 % [facility] Eosinophils Abs 0.0 0.0 - 0.4 x10(3)/[facility] Basophil % 0.1 % [facility] Baso Absolute 0.0 0.0 - 0.1 x10(3)/[facility] Immature Gran % 1.90 % [facility] Comment: Immature granulocytes(IG's)percentage and absolute count will include metamyelocytes, myelocytes, and promyelocytes. Blood smears from CBCs yielding IG's will be scanned manually for concordance. If this scan disagrees with the automated IG or if promyelocytes are noted, a manual differential will be performed. Immature Gran Absolute 0.14(H) 0.00 - 0.04 x10(3)/[facility] Blood specimen (specimen) 09/22/2016 4:00 AM EST 09/22/2016 4:34 AM EST Narrative Resulting Agency Comment Spec In Lab Alirio Esparza MD HEMATOLOGY ORDERABL ES [facility] [place] [place] [address] * (ABNORMAL) Hemogram (09/22/2016 4:00 AM EST) White Blood Cell 7.5 4.0 - 9.5 x10(3)/[facility] Red Blood Cell 2.93(L) 4.00 - 5.21 x10(6)/[facility] Hemoglobin 9.2(L) 11.7 - 15.5 [...] MEDICAL CENTER LAB[facility] NRBC% auto 0.3 % [facility] NRBC Absolute 0.020(H) 0.000 - 0.000 x10(3)/mc L [facility] Blood specimen (specimen) 09/22/2016 4:00 AM EST 09/22/2016 4:34 AM EST Narrative Resulting Agency Comment Spec In Lab Alirio Esparza MD HEMATOLOGY ORDERABL ES [facility] [place] [address] * (ABNORMAL) Cardiac Enzymes (09/22/2016 4:00 AM [...] consensus document of the Joint Society of Cardiology/[place] College [employer] Cardiology Committee for the redefinition of myocardial infarction. ??Journal of the [place] College of Cardiology 2000; 36: 959-969] Creatine Kinase 338(H) 0 - 160 unit/L [facility] Blood specimen (specimen) 09/22/2016 4:00 AM EST 09/22/2016 4:34 AM EST Narrative Resulting Agency Comment Spec In Lab Alirio Esparza MD CHEMISTRY ORDERABLE S Performing Organization Address [facility] de Phone Number [facility] [place] [address] * (ABNORMAL) Glucose, fasting (09/22/2016 4:00 AM [...] of Diabetes Mellitus, Position Statement from the [place] Diabetes Association. ??Diabetes Care, Volume 33, Supplement 1, Aug 2009 Blood specimen (specimen) 09/22/2016 4:00 AM EST 09/22/2016 4:34 AM EST Narrative Resulting Agency Comment Spec In Lab Alirio Esparza MD CHEMISTRY ORDERABLE S Performing Organization Address [facility] de Phone Number [facility] [place] [address] * (ABNORMAL) Creatinine (09/22/2016 4:00 AM EST) [facility] Creatinine 0.69(L) 0.70 - 1.20 mg/dL [facility] [...] following links into your internet browser. [email or web address] [email or web address]/[email or web address] Blood specimen (specimen) 09/22/2016 4:00 AM EST 09/22/2016 4:34 AM EST Narrative Resulting Agency Comment Spec In Lab Alirio Esparza MD CHEMISTRY ORDERABLE S Performing Organization Address City/[facility] Co de Phone Number [facility] [place] [address] * BUN (09/22/2016 4:00 AM EST) [facility] Blood Urea Nitrogen 10 8 - 18 mg/dL [facility] Blood specimen (specimen) 09/22/2016 4:00 AM EST 09/22/2016 4:34 AM EST Narrative Resulting Agency Comment Spec In Lab Alirio Esparza MD CHEMISTRY ORDERABLE S Performing Organization Address [facility]/ZIP Co de Phone Number [facility] [place] [place] [address] * POCT Glucose (09/21/2016 9:59 PM EST) [facility] Glucose, POC 146 65 - 199 mg/dL [facility] Comment: Supplemental ranges: <140 mg/dL before meals <180 mg/dL all other times of the day Blood specimen (specimen) 09/21/2016 9:59 PM EST 09/21/2016 9:59 PM EST Alirio Epsarza MD POINT OF CARE TEST ORDERABLES Performing Organization Address City/[facility]/ZIP Co de Phone Number [facility] [place] [address] * POCT Glucose (09/21/2016 7:26 PM EST) Glucose, POC 152 65 - 199 mg/dL [facility] Comment: Supplemental ranges: <140 mg/dL before meals <180 mg/dL all other times of the day Blood specimen (specimen) 09/21/2016 7:26 PM EST 09/21/2016 7:26 PM EST Alirio Esparza MD POINT OF CARE TEST ORDERABLES Performing Organization Address [facility] Co de Phone Number [facility] [place] [address] * POCT Glucose (09/21/2016 6:00 PM EST) Glucose, POC 146 65 - 199 mg/dL [facility] Comment: Supplemental ranges: <140 mg/dL before meals <180 mg/dL all other times of the day Blood specimen (specimen) 09/21/2016 6:00 PM EST 09/21/2016 6:00 PM EST Alirio Esparza MD POINT OF CARE TEST ORDERABLES Performing Organization Address City/[facility] Co de Phone Number [facility] [place] [address] * (ABNORMAL) BLOOD GAS 2 ARTERIAL (09/21/2016 [...] [facility]ICAL [facility]ENTER LAB[facility] FIO2 Art 40 % [facility] PF Ratio Art 270 [facility] Blood specimen (specimen) 09/21/2016 4:42 PM EST 09/21/2016 4:42 PM EST Alirio Esparza MD POINT OF CARE TEST ORDERABLES Performing Organization Address [facility] Co de Phone Number [facility] [place] [place] [address] * POCT Glucose (09/21/2016 4:07 PM EST) Glucose, POC 150 65 - 199 mg/dL [facility] Comment: Supplemental ranges: <140 mg/dL before meals <180 mg/dL all other times of the day Blood specimen (specimen) 09/21/2016 4:07 PM EST 09/21/2016 4:07 PM EST Alirio Esparza MD POINT OF CARE TEST ORDERABLES Performing Organization Address [facility] de Phone Number [facility] [place] [place] [address] * (ABNORMAL) Hemoglobin (09/21/2016 4:05 PM EST) [facility] Hemoglobin 9.9(L) 11.7 - 15.5 gm/dL [facility] Blood specimen (specimen) 09/21/2016 4:05 PM EST 09/21/2016 4:20 PM EST Narrative Resulting Agency Comment Spec In Lab Alirio Esparza MD HEMATOLOGY ORDERABL ES Performing Organization Address [facility] de Phone Number [facility] [place] [place] [address] * Potassium (09/21/2016 4:05 PM EST) [facility] Potassium 4.6 3.5 - 5.0 mmol/L [facility] [...] MD CHEMISTRY ORDERABLE S Performing Organization Address City/[facility]/ZIP Co de Phone Number [facility] [place] [address] * POCT Glucose (09/21/2016 2:52 PM EST) Glucose, POC 117 65 - 199 mg/dL [facility] Comment: Supplemental ranges: <140 mg/dL before meals <180 mg/dL all other times of the day Blood specimen (specimen) 09/21/2016 2:52 PM EST 09/21/2016 2:52 PM EST Alirio Esparza MD POINT OF CARE TEST ORDERABLES Performing Organization Address [facility] Co de Phone Number [facility] [place] [place] [address] * POCT Glucose (09/21/2016 1:51 PM EST) Glucose, POC 108 65 - 199 mg/dL [facility] Comment: Supplemental ranges: <140 mg/dL before meals <180 mg/dL all other times of the day Blood specimen (specimen) 09/21/2016 1:51 PM EST 09/21/2016 1:51 PM EST Alirio Esparza MD POINT OF CARE TEST ORDERABLES Performing Organization Address [facility]/ZIP Co de Phone Number [facility] [place] [place] [address] * POCT Glucose (09/21/2016 12:54 PM EST) Glucose, POC 128 65 - 199 mg/dL [facility] Comment: Supplemental ranges: <140 mg/dL before meals <180 mg/dL all other times of the day Blood specimen (specimen) 09/21/2016 12:54 PM EST 09/21/2016 12:54 PM EST Alirio Esparza MD POINT OF CARE TEST ORDERABLES [facility] [place] [place] [address] * EKG 12 Lead (09/21/2016 12:26 PM EST) Ventricular rate 87 BPM MUSE SYSTEM Atrial Rate 87 BPM MUSE SYSTEM P-R Interval 256 ms MUSE SYSTEM QRS Duration 90 ms MUSE SYSTEM Q-T Interval 406 ms MUSE SYSTEM QTC Calculated (Bezet) 488 ms MUSE SYSTEM Calculated P [place] 24 degrees MUSE SYSTEM Calculated R [place] 21 degrees MUSE SYSTEM Calculated T [place] -5 degrees MUSE SYSTEM INTERPRETATION Sinus rhythm [...] course of the esophagus and below the [id number]. There is a right IJ PA catheter [...] the course of theesophagus and below the dtzka-hr-hrkv. There is a right IJ PA catheter [...] [facility] FIO2 Art 100 % [facility] PF Ratio Art 356 [facility] Blood specimen (specimen) 09/21/2016 12:20 PM EST 09/21/2016 12:20 PM EST Alirio Esparza MD POINT OF CARE TEST ORDERABLES Performing Organization Address City/State/[facility] Co de Phone Number [facility] [place] [place] [address] * (ABNORMAL) BLOOD GAS 2 ARTERIAL (09/21/2016 [...] [facility]ICAL [facility]ENTER [facility] FIO2 Art 95 % [facility] Flow Art 0.7 LPM [facility] PF Ratio Art 313 [facility] Temp Art 36.7 Celsius [facility] Blood specimen (specimen) 09/21/2016 10:54 AM EST 09/21/2016 10:54 AM EST Alirio Esparza MD POINT OF CARE TEST ORDERABLES Performing Organization Address City/State/[facility] Co de Phone Number [facility] [place] [place] [address] * Thrombin time (09/21/2016 10:50 AM EST) [...] ORDERABLE S Performing Organization Address [facility] Co de Phone Number [facility] [place] [place] [address] * Fibrinogen (09/21/2016 10:50 AM EST) Fibrinogen [...] ORDERABLE S Performing Organization Address [facility] Co de Phone Number [facility] [place] [place] [address] * APTT (09/21/2016 10:50 AM EST) Partial Thromboplastin Time 32 25 - 35 sec [facility] Comment: The recommended therapeutic range for full dose, unfractionated heparin at [facility] is 80 ? 114 seconds. The use of the anti-Xa (heparin) level rather than the PTT is recommended for monitoring anticoagulation intensity in critically ill patients receiving unfractionated heparin by continuous IV infusion. Blood specimen (specimen) 09/21/2016 10:50 AM EST 09/21/2016 10:56 AM EST Narrative Resulting Agency Comment Spec In Lab Luis Enrique Quarles MD HEMATOLOGY ORDERABLE S Performing Organization Address City/[facility] Co de Phone Number [facility] [place] [place] [address] * (ABNORMAL) Prothrombin Time (09/21/2016 10:50 AM [...] HEMATOLOGY ORDERABLE S [facility] [place] [place] [address] * (ABNORMAL) Hemogram (09/21/2016 10:50 AM EST) [...] [facility] NRBC% auto 0.1 % [facility] [place] Absolute 0.020(H) 0.000 - 0.000 x10(3)/mc L [facility] Blood specimen (specimen) 09/21/2016 10:50 AM EST 09/21/2016 10:56 AM EST Narrative Resulting Agency Comment Spec In Lab Luis Enrique Quarles MD HEMATOLOGY ORDERABLE S Performing Organization Address [facility] Co de Phone Number [facility] [place] [address] * Prepare Platelets, Apheresis (09/21/2016 10:30 AM EST) Dispensed? Yes [facility] Blood specimen (specimen) 09/21/2016 10:30 AM EST 09/21/2016 10:28 AM EST Alirio Esparza MD BLOOD BANK PRODUCT ORDERABLES Performing Organization Address [facility] de Phone Number [facility] [place] [phone] * (ABNORMAL) BLOOD GAS 2 ARTERIAL (09/21/2016 10:05 AM EST) pH, Arterial 7.33(L) 7.35 - 7.45 [facility] PCO2, Arterial 54(Critic al) 35 - 45 mmHg [facility] Comment:Noted by optical instrument specialist. PO2, Arterial 218(H) 85 - 104 mmHg [...] [facility] Comment: Noted by optical instrument specialist. Please note: Patients with WBC >100,000 may [...] MEDICAL CENTER [facility] Temp Art 37.0 Celsius [facility] Blood specimen (specimen) 09/21/2016 10:05 AM EST 09/21/2016 10:05 AM EST Alirio Esparza MD POINT OF CARE TEST ORDERABLES [facility] [place] [place] [address] * (ABNORMAL) BLOOD GAS 2 ARTERIAL (09/21/2016 9:44 AM EST) pH, Arterial 7.22(Criti gabrielle) 7.35 - 7.45 [facility] Comment:Noted by optical instrument specialist. PCO2, Arterial 70(Critica l) 35 - 45 mmHg [facility] Comment:Noted by optical instrument specialist. PO2, Arterial 224(H) 85 - 104 mmHg [...] CARE TEST ORDERABLES [facility] [place] [place] [address] * (ABNORMAL) Hemoglobin (09/21/2016 9:42 AM EST) Hemoglobin 7.2(L) 11.7 - 15.5 gm/dL [facility] Blood specimen (specimen) 09/21/2016 9:42 AM EST 09/21/2016 9:51 AM EST Narrative Resulting Agency Comment Spec In Lab Alirio Esparza MD HEMATOLOGY ORDERABL ES [facility] [place] [place] [address] * Platelet count (09/21/2016 9:42 AM EST) Platelet 159 145 - 357 x10(3)/mc L [facility] Immature Plt % 1.6 0.0 - 7.4 % [facility] Comment: Limitation of the Immature Platelet Fraction (IPF)-May be less reliable when the platelet count is less than 68u460/uL due to statistical imprecision. The IPF value [...] in a decreased state of production. References: [employer] The Clinical Value of the Immature Platelet Fraction (IPF) in Cell Recovery Document Number 10-1143 12/2010 [employer] The Role of the Immature Platelet Fraction (IPF) in the Differential Diagnosis of Thrombocytopenia, Document MKT-[id number] V05/12/14 P05/14 Blood specimen (specimen) 09/21/2016 9:42 AM EST 09/21/2016 9:51 AM EST Narrative Resulting Agency Comment Spec In Lab Alirio Esparza MD HEMATOLOGY ORDERABL ES Performing Organization Address [facility] Co de Phone Number [facility] [place] [place] [address] * (ABNORMAL) Hematocrit (09/21/2016 9:42 AM EST) [...] Organization Address [facility] Co de Phone Number [facility] [place] [place] [address] * Fibrinogen (09/21/2016 9:42 AM EST) Fibrinogen [...] MD HEMATOLOGY ORDERABL ES Performing Organization Address City/[facility] Co de Phone Number [facility] [place] [place] [address] * (ABNORMAL) BLOOD GAS 2 ARTERIAL (09/21/2016 [...] MEDICAL CENTER [facility] Temp Art 37.0 Celsius [facility] Blood specimen (specimen) 09/21/2016 9:10 AM EST 09/21/2016 9:10 AM EST Alirio Esparza MD POINT OF CARE TEST ORDERABLES [facility] [place] [address] * Surgical Pathology Report (09/21/2016 9:09 AM EST) Final Diagnosis [id number] ?Location: 3T The signing pathologist has (i) [...] AM EST Alirio Esparza MD PATHOLOGY/CYTOLOGY ORDERABLES [facility] [place] [address] * Specimen to Pathology (surgical or derm) (09/21/2016 9:09 AM EST) AP Specimen 09/21/2016 9:09 AM EST 09/21/2016 9:09 AM EST Narrative [facility] - 09/21/2016 9:09 AM EST Specimen requisition ordered. ??Separate Pathology report to follow Alirio Esparza MD PATHOLOGY/CYTOLOGY ORDERABLES [facility] [place] [address] * (ABNORMAL) BLOOD GAS 2 ARTERIAL (09/21/2016 [...] CARE TEST ORDERABLES [facility] [place] [place] [address] * (ABNORMAL) BLOOD GAS 2 ARTERIAL (09/21/2016 [...] MEDICAL CENTER [facility] FIO2 Art 95 % [facility] Flow Art 1.1 LPM [facility] PF Ratio Art 298 [facility] Temp Art 35.6 Celsius [facility] Blood specimen (specimen) 09/21/2016 8:18 AM EST 09/21/2016 8:18 AM EST Alirio Esparza MD POINT OF CARE TEST ORDERABLES Performing Organization Address City/[facility] Co de Phone Number [facility] [place] [place] [address] * Prepare RBC (09/21/2016 7:05 AM EST) Dispensed? Yes [facility] Blood specimen (specimen) 09/21/2016 7:05 AM EST 09/21/2016 7:02 AM EST Alirio Esparza MD BLOOD BANK PRODUCT ORDERABLES Performing Organization Address City/[facility] Co de Phone Number [facility] [place] [place] [address] * POCT Glucose (09/21/2016 6:42 AM EST) Glucose, POC 104 65 - 199 mg/dL [facility] Comment: Supplemental ranges: <140 mg/dL before meals <180 mg/dL all other times of the day Blood specimen (specimen) 09/21/2016 6:42 AM EST 09/21/2016 6:42 AM EST Alirio Esparza MD POINT OF CARE TEST ORDERABLES [facility] [place] [place] [address] documented in this encounter Visit Diagnoses Not [...] dose on Wed09/21/16 at 1230, Until Discontinued, [place] teeth, Routine Given 09/25/2016 9:40 AM EST [...] dose on Wed09/21/16 at 1230, Until Discontinued, [place] teeth, Routine 0900 (Not Given - Provider: [...] Routine documented in this encounter Care Teams Hvac Designer Relationship Specialty Start Date End Date Deborah Quiroga APRN PCP - General Family Medicine 03/24/16 02/04/23 documented as of this encounter
--- OUTSIDE RECORDS SUMMARY | 2024-07-13 14:13 | XMS_ITS | Encounter Summary ---
Author Organization [facility] [place] [address] Care Team Providers Care Concrete Journeyman Name Role Phone Deborah Quiroga APRN Primary Care Provider [phone] Encounter Details Date Type Department Care Team (Late st Contact Info) Description 08/18/2016 Orders [place] [phone] Alirio Esparza MD Aortic valve stenosis, unspecified [...] 11/02/2024 12:00 PM EDT Appointment [place] [address] 11/02/2024 1:00 PM EDT Office [place] [address] Magdalena Peralta MD [facility] [place] [address] 03/01/2025 4:15 PM EDT Office Visit Dermatology at [address] [address] Marek Bonilla MD [address], [place] [address] documented as of this encounter Results * Basic Metabolic Panel (non-fasting) (08/18/2016 4:50 PM EST) Glucose 82 65 - 199 mg/dL [facility] [...] the following links into your internet browser. [email or web address] Blood specimen (specimen) 08/18/2016 4:50 PM EST 08/18/2016 5:03 PM EST Narrative Resulting Agency Comment Spec In Lab Alirio Esparza MD CHEMISTRY ORDERABLE S [facility] [place] [address] documented in this encounter Visit Diagnoses Diagnosis Aortic valve stenosis, unspecified etiology documented in this encounter Care Teams Concrete Journeyman Relationship Specialty Start Date End Date Deborah Quiroga, UNEMPLOYMENT INSURANCE HEARING OFFICER PCP - General Family Medicine 03/24/16 02/04/23 documented as of this encounter
--- OUTSIDE RECORDS SUMMARY | 2024-07-13 14:13 | XMS_ITS | Encounter Summary ---
[place] [address] Care Team Providers Care Stoper Name Role Phone Junaid, Deborah Shields APRN Primary Care Provider [phone] Reason for Visit * Reason Onset Date Comments Labs Only 09/16/2016 Encounter Details Date Type Department Care Team (Late st Contact Info) Description 09/16/2016 Telephone Hematology [place] [phone] Alexandrea Greenwood, RN Labs Only Social History [...] is having her Neulasta done today at [facility]. ??She is wondering if we want to do a CBC prior to the injection? [phone] Borjas: CBC is fine RN spoke with Swapna at [facility] who confirms they can draw CBC on pt today, RN faxed CBC w/diff to [facility] lab at [phone] RN relayed to pt that CBC ordered had been faxed to [facility], pt will have CBC drawn today prior to neulasta injection. documented in this encounter Plan of Treatment Upcoming Encounters Date Type Department Care Team (Late st Contact Info) Description 11/02/2024 12:00 PM EDT Appointment [place] [phone] 11/02/2024 1:00 PM EDT Office [place] [address] Magdalena Peralta MD [facility] [place] [address] 03/01/2025 4:15 PM EDT Office Visit Dermatology at [place] [address] [place] [address] Marek Bonilla MD [address], [place] [address] documented as of this encounter [...] type documented in this encounter Care Teams Stoper Relationship Specialty Start Date End Date Deborah Quiroga APRN PCP - General Family Medicine 03/24/16 02/04/23 documented as of this encounter
--- OUTSIDE RECORDS SUMMARY | 2024-07-13 14:13 | XMS_ITS | Encounter Summary ---
Author Organization [facility] Address [facility] [place] [address] Care Team Providers Care Pain Medicine Physician Name Role Phone Ashley Quirogan Cornelius ANURAG Primary Care Provider [phone] Encounter Details Date Type Department Care Team (Late st Contact Info) Description 08/11/2016 Telephone Hematology [place] [phone] Markel Borjas MD [facility] [address] HEMATOLOGY [place] [address] Social History Tobacco Use Types Packs/Day Years [...] 11/02/2024 12:00 PM EDT Appointment [place] [address] 11/02/2024 1:00 PM EDT Office [place] [address] Magdalena Peralta MD [facility] [address] [place] [address] 03/01/2025 4:15 PM EDT Office Visit Dermatology at [place] [address] [place] [phone] Marek Bonilla MD [address], [place] [address] documented as of this encounter Visit Diagnoses Not on filedocumented in this encounter Care Teams Pain Medicine Physician Relationship Specialty Start Date End Date Deborah Quiroga APRN PCP - General Family Medicine 03/24/16 02/04/23 documented as of this encounter
--- OUTSIDE RECORDS SUMMARY | 2024-07-13 14:13 | XMS_ITS | Encounter Summary ---
Author Organization [facility] [place] [address] Care Team Providers Care Crm Campaign Manager Name Role Phone Deborah Quiroga APRN Primary Care Provider [phone] Encounter Details Date Type Department Care Team (Late st Contact Info) Description 08/18/2016 4:20 PM EST Clinical Support Same Day at [facility] [place] [phone] Social History Tobacco Use Types Packs/Day Years [...] 11/02/2024 12:00 PM EDT Appointment [place] [address] 11/02/2024 1:00 PM EDT Office [place] [phone] Magdalena Peralta MD [facility] [place] [address] 03/01/2025 4:15 PM EDT Office Visit Dermatology at [place] [address] [place] [address] Marek Bonilla MD [address], [place] [address] documented as of this encounter Visit Diagnoses Not on filedocumented in this encounter Care Teams Crm Campaign Manager Relationship Specialty Start Date End Date Deborah Quiroga APRN PCP - General Family Medicine 03/24/16 02/04/23 documented as of this encounter
--- OUTSIDE RECORDS SUMMARY | 2024-07-13 14:13 | XMS_ITS | Encounter Summary ---
[place] [address] Care Team Providers Care Production Proofreader Name Role Phone Junaid Deborah Shields APRN Primary Care Provider [phone] Reason for Visit * Auth/Cert Specialty Diagnoses / Procedures Referred By Crispin t Referred To Contact Diagnoses Aortic stenosis Procedures PRO REPLACE AORT VALV, PROSTH VALV @REPLACE AORTIC VALVE, OPEN, W\CPB, W\PROSTHETIC VALVE (WRVU 41.32) Referral ID Status Reason Start Date Expiration Date Visits Re quested Visits Authorized [id number] 1 1 Encounter Details Date Type Department Care Team (Late st Contact Info) Description 09/21/2016 7:25 AM EST Anesthesia Event [place] [address] Luis Enrique Quarles MD [facility] [place] [address] Henrik Cooper MD [facility] [place] [address] Anesthesia Record Procedure Summary Procedure Name Responsible [...] 0819 Sternotomy 0844 CV Bypass init 1009 Dining Car Steward 1014 An Clamp Remove 1031 CP Bypass [...] Tube 09/21/16 (#28 angled chest tube to [place]: left: pericardial); Left; 09/22/16; 1119 09/21/16 0000 by Toshia Alejandre RN 09/22/16 1119 by Vero Bonilla RN Chest Tube 09/21/16 (#28 straig ht chest tube to [place]; right: mediastinal'); Right; mediastinum; 09/22/16; 1118 09/21/16 0000 by Toshia Alejandre RN 09/22/16 1118 by Vero Bonilla RN (RETIRED) Peripheral IV Line - Single Lumen 09/21/16; 0648; metacarpal vein (top of hand), left; urmc-ldu-ogwtxa catheter system; 20 gauge; valdo Arteaga; 09/23/16; 1251 09/21/16 0648 by hBumi Arteaga RN 09/23/16 1251 by Henrik Webb [...] Cooper MD - 09/21/2016 6:50 PM EST [facility] Department of Anesthesiology Post-procedure [...] Anesthesia Providers: Anesthesiologist: Luis Enrique Quarles MD Item Processor: Henrik Cooper MD Last (1hr) Vitals: BP Temp 36.1 ??C (97 ??F) (09/21/16 1800) Pulse 79 (09/21/16 1800) Resp 11 (09/21/16 1800) SpO2 98 % (09/21/16 1800) Patient Location: [facility] Level of Consciousness: Sedated (Pharmacologic/Intentional) Pain Management: [...] 11/02/2024 12:00 PM EDT Appointment [place] [address] 11/02/2024 1:00 PM EDT Office [place] [address] Magdalena Peralta MD [facility] [place] [address] 03/01/2025 4:15 PM EDT Office Visit Dermatology at [place] [address] [place] [phone] Marek Bonilla MD [address], [place] [address] documented as of this encounter Visit Diagnoses [...] mg documented in this encounter Care Teams Production Proofreader Relationship Specialty Start Date End Date Deborah Quiroga, CUSTOM DESIGNER PCP - General Family Medicine 03/24/16 02/04/23 documented as of this encounter
--- OUTSIDE RECORDS SUMMARY | 2024-07-13 14:13 | XMS_ITS | Encounter Summary ---
Author Organization [facility] [place] [address] Care Team Providers Care Branch Service Representative Name Role Phone Ashley Quirogazac Shields APRN Primary Care Provider [phone] Reason for Referral * Consultation (Routine) - Specialty Diagnoses / Procedures Referred By Contact Referred To Contact Cardiac Rehabilitation Diagnoses S/P AVR Alirio Esparza MD [facility] DR [place] [address] Cardiac Rehab, [address] [place] [address] Referral ID Status Reason Start Date Expiration Date V isits Requested Visits Authorized [id number] Consult, Test & Treat 09/25/2016 03/24/2017 36 36 Reason for Visit * Auth/Cert Specialty Diagnoses / Procedures Referred By Contkrystle t Referred To Contact Diagnoses Aortic stenosis Procedures PRO REPLACE AORT VALV, PROSTH VALV @REPLACE AORTIC VALVE, OPEN, W\CPB, W\PROSTHETIC VALVE (WRVU 41.32) Referral ID Status Reason Start Date Expiration Date Visits Re quested Visits Authorized [id number] 1 1 Encounter Details Date Type Department Care Team (Latest Contact Info) Description 09/21/2016 6:08 AM EST - 09/25/2016 4:33 PM EST Hospital Encounter Inter[place] [id number] Alirio Esparza MD Aortic valve stenosis, unspecified [...] Patient Age: 61 y.o. Birthdate: 1955 Language: Guamanian Race: White Ethnicity: Not nor Admit Date: 09/21/2016 Discharge Date: 09/25/2016 Attending Physician: Alirio Esparza MD Follow-up Recommendations for Providers: Please continue routine management of cardiovascular risk factors including blood pressure, lipids,glucose, etc. Please note any changes to medications. Patient to follow-up with PCP, Deborah Quiroga APRN, in 1-2 weeks. Patient to follow-up with Automation Engineering Manager, Dr. Antelmo Burrell, in two weeks. Patient to follow-up with Cardiac Surgery, Dr. Alirio Esparza, to be scheduled for before 10/19/2016, with CXR, EKG, and Echo. Inpatient Provider Contact Information: [facility] Section of Cardiac Surgery [facility] [place] [address] FAX [phone] Discharge Diagnoses (Hospital Problems) Primary Diagnoses: Secondary [...] 41.32) performed by Alirio Esparza MD at [facility] MAIN OR ??? Pro aortoplas for supravalv sten N/A 09/21/2016 @AORTOPLASTY FOR SUPRAVALVULAR STENOSIS (WRVU 29.33) performed by Alirio Esparza MD at [facility] MAIN OR Prior To Admission [...] Hospital Course: Purnima Thacker was admitted to [facility] on 09/21/2016 via the Same [...] Alirio Esparza and/or the Cardiac Surgery Physician Seed Sorter Team may be reached at . Antibiotic [...] to your dentist. Please refer to the [employer] [...] Dr. Alirio Jones. You may use a [place] Track or treadmill but avoid any pulling [...] low fat, low cholesterol, [employer] Heart [employer] Diet. Driving: No driving until [...] the outpatient Phase 2 Cardiac Rehabilitation at [facility]. The patient agrees to a referral to this program. The referral will be sent at discharge and the patient should be contacted by the program within 1- 2 weeks from discharge. Future Appointments and Orders Future Appointments Provider Department Dept Phone 11/20/2016 11:30 AM Markel Borjas MD [facility] [phone] Future Orders Complete By Expires Echocardiogram Transthoracic([place]) [VBJ120 Custom] 10/18/2016 (Approximate) 09/18/2017 Process Instructions: If the Echocardiogram is to be PERFORMED in a location other than [place]--STOP and order [id number], Echocardiogram South/External. Scheduling Instructions: Questions: Is a Bubble Study requested?: No Does the patient have Congenital Heart Disease?: No Does patient require sedation?: None GA rationale: Should this service be billed to the research sponsor?: EKG 12 Lead [EKG1 Custom] 10/18/2016 (Approximate) 09/25/2017 Process Instructions: Scheduling Instructions: Questions: Which location will this be performed?: [place] Is a rhythm strip needed?: No If EKG Reason is Pre-op Evaluation, indicate diagnosis for surgery.: Should this service be billed to the research sponsor?: XR Chest PA & Lateral (Generic) [[id number] Custom] 10/18/2016 (Approximate) 09/25/2017 Process Instructions: Scheduling Instructions: Questions: Where will study be performed?: [facility]- Radiology Portable exam?: No Reason for exam and clinical history: s/p AVReplacement, patch annuloplasty 1 month f/u Other pertinent information: Stat read required?: Date of injury if applicable: Requested Time: Referral to Cardiac Rehab [HYD849 Custom] As directed Process Instructions: If no progress note charted, please enter Clinical details in comments. Scheduling Instructions: Questions: My question or request is: s/p AVR. Cardiac rehab at [facility] Referral to Home Health - at DISCHARGE [AMU2077 CPT(R)] As directed Process Instructions: Scheduling Instructions: Comments: DOCUMENTATION FOR VNA SERVICES (INCLUDING THOSE PATIENTS WITH MEDICARE COVERAGE REQUIRING HOME VNA SERVICES AND/OR HOSPICE SERVICES) PATIENT'S LOCATION: Purnima Maaglie Kirstie [address] [place] [phone] (home) No relevant phone numbers on file. Shank Taper's Name: self In discussion with the attending physician, it is certified that this patient is under their care and that they, or a Nurse Practitioner, or Physician Seed Sorter who is working directly with them, hada [...] for services as follows: HOME HEALTH AGENCY: [facility] PHONE: [phone] FAX: [phone] RN orders: Cardiopulmonary assessment, incisional assessment, assess [...] issues please call the Cardiac SurgeryOffice at [phone] FOR MEDICARE ONLY: In discussion with the [...] and contact information: [facility] VNA Patient location post discharge: home What services are requested: Registered Nurse Physical Therapy Occupational Therapy Start date: Responsible MD post discharge contact info: Arrangements for VNA/home care: As above. VN RN OR PCP TO PLEASE REMOVE CHEST TUBE SUTURES ON OR AFTER 09/30/16 Signed: Crispin Aranda PA-C 09/25/2016 [facility] Section of Cardiac Surgery [facility] [place] [address] FAX [phone] Date: 09/25/2016 CC: ANURAG Alford Caryn E, APRN [address] [place] [address] documented in this encounter Discharge Instructions * [...] Alirio Esparza and/or the Cardiac Surgery Physician Seed Sorter Team may be reached at . Antibiotic [...] to your dentist. Please refer to the [employer] Heart [employer] [...] Dr. Alirio Jones. You may use a [place] Track or treadmill but avoid any pulling [...] low fat, low cholesterol, [employer] Diet. Driving: No driving until [...] the outpatient Phase 2 Cardiac Rehabilitation at [facility]. The patient agrees to a [...] PM EST Cardiac Surgery Progress Note: ID: [id number] S/p AVR, patch aortoplasty POD#2. PMH of [...] Gas) No results found for: PHART, PO2ART, YSO1PSH Assessment/Plan: TPW out this am. (+) BM. [...] Signed: Crispin Aranda PA-C 09/24/2016 Team pager: [phone]; [phone] after 5pm [facility] Section of Cardiac Surgery * Leonor Henson, DIE BARBER - 09/23/2016 10:48 AM EST Cardiac Surgery Progress Note: ID: [id number] s/p AVR, patch aortoplasty POD#2. PMH of [...] Gas) No results found for: PHART, PO2ART, NJZ1PIY Assessment/Plan: s/p AVR, patch aortoplasty POD#2. PMH [...] Surgeon on rounds. Signed: Leonor Henson APRN [facility] Section of Cardiac Surgery Date: 09/23/2016 * Nico Palacios PA - 09/22/2016 9:56 AM EST Cardiac Surgery Progress Note: ID: [id number] s/p AVR, patch aortoplasty POD#1. PMH of [...] NT, ND, soft. Ext: Moves all extremities. [place], well perfused. Incisions: C/D/I Tubes/Lines/Drains: PIV, leanna, [...] Attending Surgeon on rounds. Signed: EKATERINA KIM [facility] Section of Cardiac Surgery Date: [...] with outpatient services Lalitha Cohen SPTA Pager: [phone] Inpatient Physical Therapy Patient status, treatment interventions, and goals discussed with student. I am in agreement with all details and associated flowsheet rows as documented and was present for all aspects of the patient treatment session. Nerykatrina Jaramillo, [facility] Pager [phone] Problem: Acute Rehab Services Goal & Intervention Plan Goal: Bed Mobility Goal Stand Alone Therapy Goal Outcome: Ongoing (Interventions Implemented as Appropriate) 09/22/16 16109/25/16 09 Bed Mobility Goal Bed Mobility Goal, Time to Achieve 4 days -- Bed Mobility Goal, Activity Type scoot/bridge;supine to sit/sit to supine -- Bed Mobility Goal, [place] Level independent -- Bed Mobility Goal, Additional [...] Achieve 4 days -- Gait Training Goal, [place] Level independent -- Gait Training Goal, Distance [...] assist, home with home health Lalitha Cohen [facility] Pager: [phone] Inpatient Physical Therapy Patient status, treatment interventions, and goals discussed with student. I am in agreement with all details and associated flowsheet rows as documented and was present for all aspects of the patient treatment session. Nery Jaramillo, [facility] Pager [phone] Problem: Acute Rehab Services Goal & Intervention Plan Goal: Bed Mobility Goal Stand Alone Therapy Goal Outcome: Ongoing (Interventions Implemented as Appropriate) 09/22/16 16109/23/16 1412 Bed Mobility Goal Bed Mobility Goal, Time to Achieve 4 days -- Bed Mobility Goal, Activity Type scoot/bridge;supine to sit/sit to supine -- Bed Mobility Goal, [place] Level independent -- Bed Mobility Goal, Additional [...] Achieve 4 days -- Gait Training Goal, [place] Level independent -- Gait Training Goal, Distance [...] days -- Transfer Training Goal, Activity Type xgi-bx-byrhl/pqqtc-ok-gfk;vvo-sv-jjzuh/dtirq-ks-vvt -- Transfer Train Goal, [place] Level independent -- Transfer Training Goal, Additional Goal abides sternal precautions -- Transfer Training Goal, Outcome -- goal met * Consult Note - Jana Crenshaw RN - 09/23/2016 9:41 AM EST [facility] CARDIAC [facility]HABILITATION Purnima Thacker was seen today regarding participation in the outpatient Phase 2 Cardiac Rehabilitation at [facility]. The patient agrees to a [...] Another Service: (cardiac rehab) NICOLE HERNANDEZ, PT Pager:[phone] Inpatient Physical Therapy Problem: Acute Rehab Services Goal & Intervention Plan Goal: Bed Mobility Goal Stand Alone Therapy Goal Outcome: Ongoing (Interventions Implemented as Appropriate) 09/22/16 1611 Bed Mobility Goal Bed Mobility Goal, Time to Achieve 4 days Bed Mobility Goal, Activity Type scoot/bridge;supine to sit/sit to supine Bed Mobility Goal, [place] Level independent Bed Mobility Goal, Additional Goal able to abide sternal precautions during transfers Goal: Gait Training Goal Stand Alone Therapy Goal Outcome: Ongoing (Interventions Implemented as Appropriate) 09/22/16 1611 Gait Training Goal Gait Training Goal, Date Established 09/22/16 Gait Training Goal, Time to Achieve 4 days Gait Training Goal, [place] Level independent Gait Training Goal, Distance to Achieve ascend and descends 2 steps independently Goal: Goal Transfer Training Stand Alone Therapy Goal Outcome: Ongoing (Interventions Implemented as Appropriate) 09/22/16 1611 Goal Transfer Training Transfer Training Goal, Time to Achieve 4 days Transfer Training Goal, Activity Type gog-gg-knjtg/mzqhp-jp-ubt;djp-ce-jhnaz/spazy-lk-poz Transfer Train Goal, [place] Level independent Transfer Training Goal, Additional Goal [...] of completing AD's at home, chooses her prewti-hk-iaf, Martha Thacker (home) for her [facility], 2nd choice in friend, Nitesh Leroy [place], [place] Current Coping/Education/Information Needs: patient sitting [...] who live close by, [place], and her tjvnwi-ns-lsp Martha Thacker who she has chosen to be her DPOAH. Also has a friend Nitesh Leroy who lives in [place], [place], also her DPOAH choice. Behavioral Health History: none on file in [facility] Substance Use/Abuse: none on file in [facility] Other Pertinent/Service Specific Information: none Health/Prescription Coverage: Primary Insurance: [employer] Secondary Insurance: none Prescription Coverage: yes, per patient no issues Preferred Pharmacy: ?? Other: none Primary Care Provider: Deborah Quiroga, DIE BARBER [phone] Patient/Caregiver Goals of Treatment: per medical team recommendations at discharge for CT surgery Potential Needs for Transition of Care: Rehab/SNF: TBD Home Health: TBD DME: no Dialysis: no Community Resources: non3 Transportation: ride home with a friend Other: none Anticipated Barriers to Discharge/Special Considerations: none anticipated at this time Plan: patient will need VNA services at discharge. 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 A letter describing our affiliations was reviewed with them and they were educated about their right to choose where referrals are placed. Patient requests referral to: [facility]. PHONE: [phone] FAX: [phone] Expected date of discharge: Fri/Sat? CM called VNA to confirm referral, talked with VALDO Bunn/intake who stated she was familiar w/patient & would monitor her progress through curaspan. Referral routed to the Torpedo Worker for matching with agency/vendor and to provide any required information. A member of the Care Management team will continue to monitor progress, follow for continuity of care and assist with transition of care planning. Amanda Moreno RN Pager: [phone] * Op Note - Alirio Esparza MD - 09/21/2016 12:53 PM EST 09/23/2016 Purnima Thacker 1955 [id number] Preoperative Diagnosis: Symptomatic aortic stenosis Postoperative Diagnosis: Symptomatic aortic stenosis Procedure: Aortic valve replacement: Bovine Pericardial 25 mm Surgeon: Alirio Esparza M.D. Seed Sorter: Philip BALL Anesthesia: General endotracheal anesthesia Drains: [...] Operative Note Patient Name: Purnima Thacker : [id number] MR#: [id number] Case Date: 09/21/2016 Surgeon: Surgeon(s) and Role: * Alirio Esparza MD - Primary * Nico Palacios PA - Physician Seed Sorter Preoperative diagnosis: Postoperative diagnosis: Procedure(s) (LRB): @REPLACE [...] 11/02/2024 12:00 PM EDT [place] [address] 11/02/2024 1:00 PM EDT Office [place] [address] Magdalena Peralta MD [facility] [place] [address] 03/01/2025 4:15 PM EDT Office Visit Dermatology at [address] [place] [phone] Marek Bonilla MD [address] [place] [address], [place] [address] Scheduled Orders Name Type Priority Associated Diagnoses [...] IMPLANTABLE DEVICES SCAN 09/26/2016 12:00 AM EST OIL WELL GUN PERFORATOR OPERATOR SCAN 09/26/2016 12:00 AM EST POTASSIUM [...] SCAN EXT O RDR/RSLT * SCAN DOC: OIL WELL GUN PERFORATOR OPERATOR (09/26/2016 12:00 AM EST) Anatomical Region Laterality Modality Other Narrative 09/26/2016 12:00 AM EST Ordered by an unspecified provider. Scanning Provider MEDIA MGR SCAN EXT O RDR/RSLT * Potassium (09/25/2016 4:32 AM EST) [facility] Potassium 4.4 3.5 - 5.0 mmol/L [facility] [...] MD CHEMISTRY ORDERABLE S [facility] [place] [address] * (ABNORMAL) Differential, Automated (09/24/2016 9:56 AM EST) Neutrophil % 76.8 % [facility] Neutrophil Absolute 7.79(H) 1.70 - 6.10 x10(3)/mc L [facility] Lymph % 11.1 % [facility] Lymphocytes Abs 1.1 0.9 - 3.2 x10(3)/mc L [facility] Monocyte % 8.5 % [facility] Monocyte Abs 0.9 0.3 - 0.9 x10(3)/mc L [facility] Eos % 0.5 % [facility] Eosinophils Abs 0.0 0.0 - 0.4 x10(3)/[facility] LABORATORY Basophil % 0.2 % [facility] Baso Absolute 0.0 0.0 - 0.1 x10(3)/[facility] LABORATORY Immature Gran % 2.90 % [facility] Comment: Immature granulocytes(IG's)percentage and absolute count will include metamyelocytes, myelocytes, and promyelocytes. Blood smears from CBCs yielding IG's will be scanned manually for concordance. If this scan disagrees with the automated IG or if promyelocytes are noted, a manual differential will be performed. Immature Gran Absolute 0.29(H) 0.00 - 0.04 x10(3)/[facility] LABORATORY Blood specimen (specimen) 09/24/2016 9:56 AM EST 09/24/2016 10:04 AM EST Narrative Resulting Agency Comment Spec In Lab Alirio Esparza MD HEMATOLOGY ORDERABL ES [facility] [place] [address] * (ABNORMAL) Hemogram (09/24/2016 9:56 AM EST) White Blood Cell 10.1(H) 4.0 - 9.5 x10(3)/[facility] LABORATORY Red Blood Cell 2.87(L) 4.00 - 5.21 x10(6)/[facility] LABORATORY Hemoglobin 9.4(L) 11.7 - [...] [facility] NRBC% auto 1.1 % [facility] NRBC Absolute 0.110(H) 0.000 - 0.000 x10(3)/mc L [facility] Blood specimen (specimen) 09/24/2016 9:56 AM EST 09/24/2016 10:04 AM EST Narrative Resulting Agency Comment Spec In Lab Alirio Esparza MD HEMATOLOGY ORDERABL ES [facility] [place] [id number] * (ABNORMAL) Basic Metabolic Panel (non-fasting) (09/24/2016 [...] the following links into your internet browser. [email or web address] Blood specimen (specimen) 09/24/2016 9:56 AM EST 09/24/2016 10:04 AM EST Narrative Resulting Agency Comment Spec In Lab Alirio Esparza MD CHEMISTRY ORDERABLE S [facility] [place] [address] * XR Chest PA & Lateral (Generic) [...] ORDERABLES * Potassium (09/23/2016 3:31 AM EST) [facility] Signature Potassium 4.5 3.5 - 5.0 mmol/L [facility] [...] City/[facility]/ZIP Co de Phone Number [facility] [place] [address] * POCT Glucose (09/22/2016 8:17 AM EST) [facility] Signature Glucose, POC 131 65 - 199 mg/dL [facility] Comment: Supplemental ranges: <140 mg/dL before meals <180 mg/dL all other times of the day Blood specimen (specimen) 09/22/2016 8:17 AM EST 09/22/2016 8:17 AM EST Alirio Esparza MD POINT OF CARE TEST ORDERABLES [facility] [place] [address] * POCT Glucose (09/22/2016 4:01 AM EST) [facility] Glucose, POC 135 65 - 199 mg/dL [facility] Comment: Supplemental ranges: <140 mg/dL before meals <180 mg/dL all other times of the day Blood specimen (specimen) 09/22/2016 4:01 AM EST 09/22/2016 4:01 AM EST Alirio Esparza MD POINT OF CARE TEST ORDERABLES Performing Organization Address [facility] Co de Phone Number [facility] [place] [address] * Scan, Peripheral Blood (09/22/2016 4:00 AM EST) [facility] Plat estimate Normal [facility] RBC Morphology Abnormal [facility] Macrocyte 1-5 /HPF [facility] Plat, Giant Less than 1 /HPF [facility] Blood specimen (specimen) 09/22/2016 4:00 AM EST 09/22/2016 4:34 AM EST Narrative Resulting Agency Comment Spec In Lab Alirio Esparza MD HEMATOLOGY ORDERABL ES Performing Organization Address [facility] de Phone Number [facility] [place] [address] * Electrolytes panel (09/22/2016 4:00 AM EST) [facility] Sodium 145 135 - 145 mmol/L [facility] [...] MD CHEMISTRY ORDERABLE S [facility] [place] [address] * (ABNORMAL) Differential, Automated (09/22/2016 4:00 AM EST) Neutrophil % 70.9 % [facility] Neutrophil Absolute 5.33 1.70 - 6.10 x10(3)/mc L [facility] Lymph % 9.1 % [facility] Lymphocytes Abs 0.7(L) 0.9 - 3.2 x10(3)/mc L [facility] Monocyte % 18.0 % [facility] Monocyte Abs 1.4(H) 0.3 - 0.9 x10(3)/ L [facility] Eos % 0.0 % [facility] Eosinophils Abs 0.0 0.0 - 0.4 x10(3)/[facility] LABORATORY Basophil % 0.1 % [...] MD HEMATOLOGY ORDERABL ES [facility] [place] [address] * (ABNORMAL) Hemogram (09/22/2016 4:00 AM EST) White Blood Cell 7.5 4.0 - 9.5 x10(3)/mc L [facility] Red Blood Cell 2.93(L) 4.00 - 5.21 x10(6)/mc L [facility] Hemoglobin 9.2(L) 11.7 - 15.5 gm/dL [facility] Hematocrit 28.0(L) 35.7 - 45.8 % [facility] Mean Cell Volume 95.6(H) 82.6 - 94.4 fL [facility] Mean Cell Hemoglobin 31.4 27.1 - 32.0 pg [facility] Mean Cell Hemoglobin Concentration 32.9 31.7 - 35.0 gm/dL [facility] Platelet 161 145 - 357 x10(3)/mc L [facility] RDW Standard Deviation 44.0 37.0 - 46.0 fL [facility] RDW coefficient of variation 12.6 11.5 - 14.1 % [facility] Mean Platelet Volume 9.3 7.6 - 12.9 fL [facility] NRBC% auto 0.3 % [facility] NRBC Absolute 0.020(H) 0.000 - 0.000 x10(3)/mc L [facility] Blood specimen (specimen) 09/22/2016 4:00 AM EST 09/22/2016 4:34 AM EST Narrative Resulting Agency Comment Spec In Lab Alirio Esparza MD HEMATOLOGY ORDERABL ES [facility] [place] [address] * (ABNORMAL) Cardiac Enzymes (09/22/2016 4:00 AM EST) [facility] Troponin-T 0.13(H) <=0.03 ng/mL [facility] [...] consensus document of the Joint Society of Cardiology/[place] College [employer] Cardiology Committee for the redefinition of myocardial infarction. ??Journal of the [place] College of Cardiology 2000; 36: 959-969] Creatine Kinase 338(H) 0 - 160 unit/L [facility] Blood specimen (specimen) 09/22/2016 4:00 AM EST 09/22/2016 4:34 AM EST Narrative Resulting Agency Comment Spec In Lab Alirio Esparza MD CHEMISTRY ORDERABLE S Performing Organization Address City/State/[facility] Co de Phone Number [facility] [place] [address] * (ABNORMAL) Glucose, fasting (09/22/2016 4:00 AM EST) [facility] Glucose Fasting 137(H) 65 - 99 mg/dL [...] of Diabetes Mellitus, Position Statement from the [place] Diabetes Association. ??Diabetes Care, Volume 33, Supplement 1, Aug 2009 Blood specimen (specimen) 09/22/2016 4:00 AM EST 09/22/2016 4:34 AM EST Narrative Resulting Agency Comment Spec In Lab Alirio Esparza MD CHEMISTRY ORDERABLE S Performing Organization Address [facility] Co de Phone Number [facility] [place] [address] * (ABNORMAL) Creatinine (09/22/2016 4:00 AM EST) [facility] Creatinine 0.69(L) 0.70 - 1.20 mg/dL [facility] [...] the following links into your internet browser. [email or web address] Blood specimen (specimen) 09/22/2016 4:00 AM EST 09/22/2016 4:34 AM EST Narrative Resulting Agency Comment Spec In Lab Alirio Esparza MD CHEMISTRY ORDERABLE S Performing Organization Address [facility] Co de Phone Number [facility] [place] [address] * BUN (09/22/2016 4:00 AM EST) Blood Urea Nitrogen 10 8 - 18 mg/dL [facility] Blood specimen (specimen) 09/22/2016 4:00 AM EST 09/22/2016 4:34 AM EST Narrative Resulting Agency Comment Spec In Lab Alirio Esparza MD CHEMISTRY ORDERABLE S Performing Organization Address City/[facility]/ZIP Co de Phone Number [facility] [place] [address] * POCT Glucose (09/21/2016 9:59 PM EST) Glucose, POC 146 65 - 199 mg/dL [facility] Comment: Supplemental ranges: <140 mg/dL before meals <180 mg/dL all other times of the day Blood specimen (specimen) 09/21/2016 9:59 PM EST 09/21/2016 9:59 PM EST Alirio Esparza MD POINT OF CARE TEST ORDERABLES Performing Organization Address [facility]/ZIP Co de Phone Number [facility] [place] [address] * POCT Glucose (09/21/2016 7:26 PM EST) Glucose, POC 152 65 - 199 mg/dL [facility] Comment: Supplemental ranges: <140 mg/dL before meals <180 mg/dL all other times of the day Blood specimen (specimen) 09/21/2016 7:26 PM EST 09/21/2016 7:26 PM EST Alirio Esparza MD POINT OF CARE TEST ORDERABLES Performing Organization Address City/[facility]/ZIP Co de Phone Number [facility] [place] [address] * POCT Glucose (09/21/2016 6:00 PM EST) Glucose, POC 146 65 - 199 mg/dL [facility] Comment: Supplemental ranges: <140 mg/dL before meals <180 mg/dL all other times of the day Blood specimen (specimen) 09/21/2016 6:00 PM EST 09/21/2016 6:00 PM EST Alirio Esparza MD POINT OF CARE TEST ORDERABLES [facility] [place] [address] * (ABNORMAL) BLOOD GAS 2 ARTERIAL (09/21/2016 4:42 PM EST) pH, Arterial 7.35(L) 7.35 - 7.45 [facility] [...] [facility] FIO2 Art 40 % [facility] PF Ratio Art 270 [facility] Blood specimen (specimen) 09/21/2016 4:42 PM EST 09/21/2016 4:42 PM EST Alirio Esparza MD POINT OF CARE TEST ORDERABLES Performing Organization Address City/[facility]/ZIP Co de Phone Number [facility] [place] [address] * POCT Glucose (09/21/2016 4:07 PM EST) Glucose, POC 150 65 - 199 mg/dL [facility] Comment: Supplemental ranges: <140 mg/dL before meals <180 mg/dL all other times of the day Blood specimen (specimen) 09/21/2016 4:07 PM EST 09/21/2016 4:07 PM EST Alirio Esparza MD POINT OF CARE TEST ORDERABLES Performing Organization Address [facility] Co de Phone Number [facility] [place] [address] * (ABNORMAL) Hemoglobin (09/21/2016 4:05 PM EST) Hemoglobin 9.9(L) 11.7 - 15.5 gm/dL [facility] Blood specimen (specimen) 09/21/2016 4:05 PM EST 09/21/2016 4:20 PM EST Narrative Resulting Agency Comment Spec In Lab Alirio Esparza MD HEMATOLOGY ORDERABL ES Performing Organization Address City/[facility]/ZIP Co de Phone Number [facility] [place] [address] * Potassium (09/21/2016 4:05 PM EST) Potassium [...] City/[facility]/ZIP Co de Phone Number [facility] [place] [address] * POCT Glucose (09/21/2016 2:52 PM EST) Glucose, POC 117 65 - 199 mg/dL [facility] Comment: Supplemental ranges: <140 mg/dL before meals <180 mg/dL all other times of the day Blood specimen (specimen) 09/21/2016 2:52 PM EST 09/21/2016 2:52 PM EST Alirio Esparza MD POINT OF CARE TEST ORDERABLES Performing Organization Address [facility]/ZIP Co de Phone Number [facility] [place] [address] * POCT Glucose (09/21/2016 1:51 PM EST) Glucose, POC 108 65 - 199 mg/dL [facility] Comment: Supplemental ranges: <140 mg/dL before meals <180 mg/dL all other times of the day Blood specimen (specimen) 09/21/2016 1:51 PM EST 09/21/2016 1:51 PM EST Alirio Esparza MD POINT OF CARE TEST ORDERABLES Performing Organization Address City/[facility]/ZIP Co de Phone Number [facility] [place] [address] * POCT Glucose (09/21/2016 12:54 PM EST) Glucose, POC 128 65 - 199 mg/dL [facility] Comment: Supplemental ranges: <140 mg/dL before meals <180 mg/dL all other times of the day Blood specimen (specimen) 09/21/2016 12:54 PM EST 09/21/2016 12:54 PM EST Aliroi Esparza MD POINT OF CARE TEST ORDERABLES [facility] [address] [place] [address] * EKG 12 Lead (09/21/2016 12:26 PM EST) Ventricular rate 87 BPM MUSE SYSTEM Atrial Rate 87 BPM MUSE SYSTEM P-R Interval 256 ms MUSE SYSTEM QRS Duration 90 ms MUSE SYSTEM Q-T Interval 406 ms MUSE SYSTEM QTC Calculated (Bezet) 488 ms MUSE SYSTEM Calculated P [place] 24 degrees MUSE SYSTEM Calculated R [place] 21 degrees MUSE SYSTEM Calculated T [place] -5 degrees MUSE SYSTEM INTERPRETATION Sinus rhythm with 1st degree A-V block Nonspecific T wave abnormality Prolonged QT Abnormal ECG When compared with ECG of 19-MAY-2016 11:43, [place] interval has increased T wave inversion now [...] course of the esophagus and below the [id number]. There is a right IJ PA catheter [...] the course of theesophagus and below the [id number]. There is a right IJ PA catheter [...] [facility] FIO2 Art 100 % [facility] PF Ratio Art 356 [facility] Blood specimen (specimen) 09/21/2016 12:20 PM EST 09/21/2016 12:20 PM EST Alirio Esparza MD POINT OF CARE TEST ORDERABLES Performing Organization Address City/State/[facility] Co de Phone Number [facility] [place] [address] * (ABNORMAL) BLOOD GAS 2 ARTERIAL (09/21/2016 [...] [facility] FIO2 Art 95 % [facility] Flow Art 0.7 LPM [facility] PF Ratio Art 313 [facility] Temp Art 36.7 Celsius [facility] Blood specimen (specimen) 09/21/2016 10:54 AM EST 09/21/2016 10:54 AM EST Alirio Esparza MD POINT OF CARE TEST ORDERABLES [facility] [place] [address] * Thrombin time (09/21/2016 10:50 AM EST) [...] MD HEMATOLOGY ORDERABLE S Performing Organization Address City/[facility]/ZIP Co de Phone Number [facility] [place] [address] * Fibrinogen (09/21/2016 10:50 AM EST) Pathologist [facility] Fibrinogen 228 180 - 510 mg/dL [facility] Comment: Called by: JONNAHTAN, Read back by: MICHELLE ALEJANDRE_, Date/Time:09/21/16 11:11. A fibrinogen level >100 mg/dL is adequate for hemostasis in most patients without underlying bleeding disorders. Blood specimen (specimen) 09/21/2016 10:50 AM EST 09/21/2016 10:56 AM EST Narrative Resulting Agency Comment Spec In Lab Luis Enrique Quarles MD HEMATOLOGY ORDERABLE S [facility] [place] [address] * APTT (09/21/2016 10:50 AM EST) Partial Thromboplastin Time 32 25 - 35 sec [facility] Comment: The recommended therapeutic range for full dose, unfractionated heparin at [facility] is 80 ? 114 seconds. The use of the anti-Xa (heparin) level rather than the PTT is recommended for monitoring anticoagulation intensity in critically ill patients receiving unfractionated heparin by continuous IV infusion. Blood specimen (specimen) 09/21/2016 10:50 AM EST 09/21/2016 10:56 AM EST Narrative Resulting Agency Comment Spec In Lab Luis Enrique Quarles MD HEMATOLOGY ORDERABLE S Performing Organization Address [facility] Co de Phone Number [facility] [place] [address] * (ABNORMAL) Prothrombin Time (09/21/2016 10:50 AM [...] MD HEMATOLOGY ORDERABLE S Performing Organization Address [facility] Co de Phone Number [facility] [place] [address] * (ABNORMAL) Hemogram (09/21/2016 10:50 AM EST) [...] RDW Standard Deviation 42.6 37.0 - 46.0 [facility] RDW coefficient of variation 12.1 11.5 - 14.1 % [facility] Mean Platelet Volume 9.2 7.6 - 12.9 [facility] NRBC% auto 0.1 % [facility] NRBC Absolute 0.020(H) 0.000 - 0.000 x10(3)/mc L [facility] Blood specimen (specimen) 09/21/2016 10:50 AM EST 09/21/2016 10:56 AM EST Narrative Resulting Agency Comment Spec In Lab Luis Enrique Quarles MD HEMATOLOGY ORDERABLE S Performing Organization Address City/[facility] Co de Phone Number [facility] [place] [address] * Prepare Platelets, Apheresis (09/21/2016 10:30 AM EST) Pathologist [facility] Dispensed? Yes [facility] Blood specimen (specimen) 09/21/2016 10:30 AM EST 09/21/2016 10:28 AM EST Alirio Esparza MD BLOOD BANK PRODUCT ORDERABLES Performing Organization Address City/[facility]/ZIP Co de Phone Number [facility] [place] [address] * (ABNORMAL) BLOOD GAS 2 ARTERIAL (09/21/2016 10:05 AM EST) pH, Arterial 7.33(L) 7.35 - 7.45 [facility] PCO2, Arterial 54(Critic al) 35 - 45 mmHg [facility] Comment:Noted by instrumental teacher. PO2, [...] mmol/L [facility] Comment: Noted by instrumental teacher. [...] [facility] Temp Art 37.0 Celsius [facility] Blood specimen (specimen) 09/21/2016 10:05 AM EST 09/21/2016 10:05 AM EST Alirio Esparza MD POINT OF CARE TEST ORDERABLES [facility] [place] [address] * (ABNORMAL) BLOOD GAS 2 ARTERIAL (09/21/2016 9:44 AM EST) pH, Arterial 7.22(Criti gabrielle) 7.35 - 7.45 [facility] Comment:Noted by instrumental teacher. PCO2, Arterial 70(Critica l) 35 - 45 mmHg [facility] Comment:Noted by instrumental teacher. PO2, [...] OF CARE TEST ORDERABLES Performing Organization Address [facility] Phone Number [facility] [place] [address] * (ABNORMAL) Hemoglobin (09/21/2016 9:42 AM EST) Hemoglobin 7.2(L) 11.7 - 15.5 gm/dL [facility] Blood specimen (specimen) 09/21/2016 9:42 AM EST 09/21/2016 9:51 AM EST Narrative Resulting Agency Comment Spec In Lab Alirio Esparza MD HEMATOLOGY ORDERABL ES Performing Organization Address [facility] Number [facility] [place] [address] * Platelet count (09/21/2016 9:42 AM EST) Platelet 159 145 - 357 x10(3)/mc L [facility] Immature Plt % 1.6 0.0 - 7.4 % [facility] Comment: Limitation of the Immature Platelet Fraction (IPF)-May be less reliable when the platelet count is less than 90e647/uL due to statistical imprecision. The IPF value [...] in a decreased state of production. References: [employer] The Clinical Value of the Immature Platelet Fraction (IPF) in Cell Recovery Document Number 10-1143 12/2010 [employer] The Role of the Immature Platelet Fraction (IPF) in the Differential Diagnosis of Thrombocytopenia, Document MKT-[id number] V05 P012/13 Blood specimen (specimen) 09/21/2016 9:42 AM EST 09/21/2016 9:51 AM EST Narrative Resulting Agency Comment Spec In Lab Alirio Esparza MD HEMATOLOGY ORDERABL ES Performing Organization Address [facility] Co de Phone Number [facility] [place] [address] * (ABNORMAL) Hematocrit (09/21/2016 9:42 AM EST) [...] MD HEMATOLOGY ORDERABL ES Performing Organization Address [facility] Co de Phone Number [facility] [place] [address] * Fibrinogen (09/21/2016 9:42 AM EST) Fibrinogen [...] MD HEMATOLOGY ORDERABL ES [facility] [place] [address] * (ABNORMAL) BLOOD GAS 2 ARTERIAL (09/21/2016 [...] [facility] Temp Art 37.0 Celsius [facility] Blood specimen (specimen) 09/21/2016 9:10 AM EST 09/21/2016 9:10 AM EST Alirio Esparza MD POINT OF CARE TEST ORDERABLES [facility] [place] [address] * Surgical Pathology Report (09/21/2016 9:09 AM EST) Final Diagnosis [id number] ?Location: 3T The signing pathologist has (i) [...] Esparza MD PATHOLOGY/CYTOLOGY ORDERABLES Performing Organization Address City/[facility]/ZIP Co de Phone Number [facility] [place] [address] * Specimen to Pathology (surgical or derm) (09/21/2016 9:09 AM EST) AP Specimen 09/21/2016 9:09 AM EST 09/21/2016 9:09 AM EST Narrative [facility] - 09/21/2016 9:09 AM EST Specimen requisition ordered. ??Separate Pathology report to follow Alirio Esparza MD PATHOLOGY/CYTOLOGY ORDERABLES Performing Organization Address [facility] [place] [address] * (ABNORMAL) BLOOD GAS 2 ARTERIAL (09/21/2016 [...] OF CARE TEST ORDERABLES [facility] [place] [address] * (ABNORMAL) BLOOD GAS 2 ARTERIAL (09/21/2016 [...] [facility] FIO2 Art 95 % [facility] Flow Art 1.1 LPM [facility] PF Ratio Art 298 [facility] Temp Art 35.6 Celsius [facility] Blood specimen (specimen) 09/21/2016 8:18 AM EST 09/21/2016 8:18 AM EST Alirio Esparza MD POINT OF CARE TEST ORDERABLES [facility] [place] [address] * Prepare RBC (09/21/2016 7:05 AM EST) Dispensed? Yes [facility] Blood specimen (specimen) 09/21/2016 7:05 AM EST 09/21/2016 7:02 AM EST Alirio Esparza MD BLOOD BANK PRODUCT ORDERABLES [facility] [place] [address] * POCT Glucose (09/21/2016 6:42 AM EST) Glucose, POC 104 65 - 199 mg/dL [facility] Comment: Supplemental ranges: <140 mg/dL before meals <180 mg/dL all other times of the day Blood specimen (specimen) 09/21/2016 6:42 AM EST 09/21/2016 6:42 AM EST Alirio Esparza MD POINT OF CARE TEST ORDERABLES Performing Organization Address [facility] Co de Phone Number [facility] [place] [address] documented in this encounter Visit Diagnoses Diagnosis [...] dose on Wed09/21/16 at 1230, Until Discontinued, Leslie teeth, Routine Given 09/25/2016 9:40 AM EST [...] if phenyleprine and/or vasopressin ineffective.Call pager # [phone] if initiated., Routine Rate/Dose Change 09/21/2016 2:27 [...] L/min/M2. Maximum volume 2 L. Call warehouse pricing and inventory clerk for additional fluid orders: pager #[phone]. Rate/Dose Verify 09/22/2016 10:00 AM EST 10 [...] dose on Wed09/21/16 at 1230, Until Discontinued, [place] teeth, Routine 0900 (Not Given - Provider: [...] Routine documented in this encounter Care Teams Branch Service Representative Relationship Specialty Start Date End Date Deborah Quiroga, ANURAG PCP - General Family Medicine 03/24/16 02/04/23 documented as of this encounter
--- OUTSIDE RECORDS SUMMARY | 2024-07-13 14:13 | XMS_ITS | Encounter Summary ---
Author Organization [facility] Address [facility] [place] [address] Care Team Providers Care Sound Engineer Name Role Phone Deborah Quiroga ANURAG Primary Care Provider [phone] Encounter Details Date Type Department Care Team (Late st Contact Info) Description 08/04/2016 External Results Hematology [place] [address] Alexandrea Greenwood RN Neutropenia, unspecified [...] PM EDT Appointment [place] [address] 11/02/2024 1:00 PM EDT Office [place] [address] Magdalena Peralta MD [facility] [place] [address] 03/01/2025 4:15 PM EDT Office Visit Dermatology at [address] [address] Marek Bonilla MD [address], [place] [address] documented as of this encounter Procedures Procedure [...] type documented in this encounter Care Teams Sound Engineer Relationship Specialty Start Date End Date Deborah Quiroga APRN PCP - General Family Medicine 03/24/16 02/04/23 documented as of this encounter
--- OUTSIDE RECORDS SUMMARY | 2024-07-13 14:13 | XMS_ITS | Encounter Summary ---
Author Organization [facility] Address [facility] [place] [address] Care Team Providers Care Surgeon Partner Name Role Phone Deborah Quiroga ANURAG Primary Care Provider [phone]- [phone] Encounter Details Date Type Department Care Team (Late st Contact Info) Description 09/17/2016 External Results Hematology [place] [address] Alexandrea Greenwood RN Neutropenia, unspecified [...] 12:00 PM EDT Appointment [place] [address] 11/02/2024 1:00 PM EDT Office Visit [place] [address] Magdalena Peralta MD [facility] [place] [address] 03/01/2025 4:15 PM EDT Office Visit Dermatology at [address] [address] Marek Bonilla MD [address], [place] [address] documented as of this encounter Procedures Procedure [...] type documented in this encounter Care Teams Surgeon Partner Relationship Specialty Start Date End Date Deborah Quiroga APRN PCP - General Family Medicine 03/24/16 02/04/23 documented as of this encounter
--- OUTSIDE RECORDS SUMMARY | 2024-07-13 14:13 | XMS_ITS | Encounter Summary ---
[place] [address] Care Team Providers Care Commanding Officer Homicide Squad Name Role Phone Deborah Quiroga ANURAG Primary Care Provider [phone] Encounter Details Date Type Department Care Team (Late st Contact Info) Description 09/11/2016 Orders Only Hematology [place] [address] Alexandrea Greenwood RN Social [...] the original note were not included. [facility] [phone] Date: 09/11/16 Patient Name: Purnima Thacker : 1955 Diagnosis: Neutropenia Referral to [site]: [facility] Orders: ? Growth factor: [x] Neulasta 6mg SQ injection x 1 on 09/16/16 Signature: Markel Borjas MD beeper # [phone] Co-signature [if needed]: documented in this encounter Plan of Treatment Upcoming Encounters Date Type Department Care Team (Late st Contact Info) Description 11/02/2024 12:00 PM EDT Appointment [place] [address] 11/02/2024 1:00 PM EDT Office Visit [place] [phone] Magdalena Peralta MD [facility] [place] [address] 03/01/2025 4:15 PM EDT Office Visit Dermatology at [place] [address] [place] [phone] Marek Bonilla MD [address], [address] [place] [address] documented as of this encounter Procedures Procedure Name Priority Date/Time Associated Diagnosis Comments TRANSESOPHAGEAL ECHOCARDIOGRAM (GAVINO) Routine 09/22/2016 documented in this encounter Results * Transesophageal Echocardiogram (GAVINO) (09/22/2016) Anatomical Region Laterality Modality Other 09/22/2016 Narrative 09/22/2016 8:30 AM EST Procedure: ?Transesophageal Echocardiogram Patient: ?ANDREW ECHOLS M ? (Age): 1955(61y) Med Rec#: ? [id number] ?Sex: ?M ? Site Loc: ? [facility] ?Ht / Wt: ??(cm)/ (kg) ? Pt. Loc: ?OR ? Study Date: ?? 09/21/2016 ?Pt. Type: Tape: ? 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 AVR for severe Rhythm: ? [...] ? Mid-Inferior ?Normal ? Mid-Inferoseptal ?Normal ? [place]-Septal ? Normal ? [place]-Anterior ? Normal ? [place]-Lateral ?Normal ? [place]-Inferior ? Normal ? [place]-Tip ?Normal ? This report has been electronically signed by: Henrik Yarbrough M.D. ? 09/22/2016 08:30:41 Images reviewed and interpretation verified [facility] Procedure Note Henrik Yarbrough MD - 09/22/2016 Procedure: Transesophageal Echocardiogram Patient: ANDREW Mejias (Age): 1955(61y) Med Rec#: [id number] Sex: M Site Loc: [facility] [place] Ht / Wt: (cm)/ (kg) Pt. Loc: OR Study Date: 09/21/2016 Pt. 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 09/22/2016 08:30:41 Images reviewed and interpretation verified [facility] Unknown ECHO ORDERABLES documented in this encounter Visit Diagnoses Not on filedocumented in this encounter Care Teams Commanding Officer Homicide Squad Relationship Specialty Start Date End Date Deborah Quiroga APRN PCP - General Family Medicine 03/24/16 02/04/23 documented as of this encounter
--- OUTSIDE RECORDS SUMMARY | 2024-07-13 14:13 | XMS_ITS | Encounter Summary ---
[place] [address] Care Team Providers Care Painter Airbrush Name Role Phone Deborah Quiroga APRN Primary Care Provider [phone]- [phone] Reason for Visit * Reason Onset Date Comments Prior Authorization 09/11/2016 Neulasta Encounter Details Date Type Department Care Team (Late st Contact Info) Description 09/11/2016 Telephone Hematology [place] [phone] Monica Wick Prior Authorization (Neulasta ) Social [...] AM EST Prior Auth for Neulasta (Approved) [facility] is a covered facility under the members plan. ID# [id number] Call placed to [phone] Rationale: Can you please start a PA for this pt to receive as outpatient at [facility] on 09/16/16? 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 ??Her last ANC was 0.56 (or 560) on 08/04/16. ??This will need to be approved through her medical as out patient. J code for neulasta. ?? [id number]. Spoke w/ Anna Marie Call Reference [id number] Copay: $ Deductible is not met, patient will have out of pocket costs until deductible is met. documented in this encounter Plan of Treatment Upcoming Encounters Date Type Department Care Team (Late st Contact Info) Description 11/02/2024 12:00 PM EDT Appointment [place] [address] 11/02/2024 1:00 PM EDT Office [place] [address] Magdalena Peralta MD [facility] [place] [address] 03/01/2025 4:15 PM EDT Office Visit Dermatology at [place] [address] [facility] [address] [place] [phone] Marek Bonilla MD [address], [place] [address] documented as of this encounter Visit Diagnoses Not on filedocumented in this encounter Care Teams Painter Airbrush Relationship Specialty Start Date End Date Deborah Quiroga APRN PCP - General Family Medicine 03/24/16 02/04/23 documented as of this encounter
--- OUTSIDE RECORDS SUMMARY | 2024-07-13 14:13 | XMS_ITS | Encounter Summary ---
[place] [address] Care Team Providers Care Caul Fat Puller Name Role Phone Ashley Quirogan Cornelius ANURAG Primary Care Provider [phone] Reason for Visit * Reason Onset Date Comments Medical Care Coordination 09/14/2016 Encounter Details Date Type Department Care Team (Late st Contact Info) Description 09/14/2016 Telephone Hematology [place] [phone] Alexandrea Greenwood RN Medical Care Coordination Social [...] 9:10 AM EST Message received from secretary office clerk: Injection/Infusion Referral Call placed to [facility] Infusion Room Spoke charis Bragg. Services to be provided for pt are: Miles 09/16/16 Mahsa confirmed they would provide services to pt and would contact with appointment time. Pt aware to expect the phone call ??orders faxed to [phone]). documented in this encounter Plan of Treatment Upcoming Encounters Date Type Department Care Team (Late st Contact Info) Description 11/02/2024 12:00 PM EDT Appoint[place] [address] 11/02/2024 1:00 PM EDT Office [place] [address] Magdalena Peralta MD [facility] [place] [address] 03/01/2025 4:15 PM EDT Office Visit Dermatology at [place] [address] [facility] [place] [address] Marek Bonilla MD [address], [place] [address] documented as of this encounter Visit Diagnoses Not on filedocumented in this encounter Care Teams Caul Fat Puller Relationship Specialty Start Date End Date Deborah Quiroga APRN PCP - General Family Medicine 03/24/16 02/04/23 documented as of this encounter
--- OUTSIDE RECORDS SUMMARY | 2024-07-13 14:14 | XMS_ITS | Encounter Summary ---
Author Organization [facility] [place] [address] Care Team Providers Care Wood Router Hand Name Role Phone Eitan Danni ANURAG Primary Care Provider [phone] Encounter Details Date Type Department Care Team (Late st Contact Info) Description 01/22/2014 Telephone Cardiology at [address] [phone] Cynthia Arrington LPN Social History Tobacco Use [...] LPN - 01/23/2014 2:39 PM EDT This scientific writer did not receive a call back [...] PM EDT Appointment [place] [address] 11/02/2024 1:00 PM EDT Office [place] [address] Magdalena Peralta MD [facility] [place] [address] 03/01/2025 4:15 PM EDT Office Visit Dermatology at [place] [address] [facility] [place] [address] Marek Bonilla MD [address], [place] [address] documented as of this encounter Visit Diagnoses Not on filedocumented in this encounter Care Teams Wood Router Hand Relationship Specialty Start Date End Date Danni Laird APRN [address] [place] [address] PCP - General 01/23/14 11/11/14 documented as of this encounter
--- OUTSIDE RECORDS SUMMARY | 2024-07-13 14:14 | XMS_ITS | Encounter Summary ---
Author Organization [facility] Address [facility] [place] [address] Care Team Providers Care Vendor Representatives Name Role Phone Junaid Deborah Shields APRN Primary Care Provider Encounter Details Date Type Department Care Team (Late st Contact Info) Description 07/17/2016 9:00 AM EST Office Visit Hematology [place] [address] Markel Borjas MD [facility] [address] HEMATOLOGY [place] [address] Neutropenia, unspecified type Social History Tobacco Use [...] AM EST Hematology Outpatient Clinic [facility] Hematology Outpatient Consult Note CC: [id number] [...] TOUCH PREP, CLOT SECTION, CORE ??BIOPSY); [OSR# [id number], COLLECTED 06/23/2016, 19 SLIDES]: ?1. 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 Labs will be drawn at [facility] next week Imaging As above - [...] leukopenia. Will consi kanwal talking to pt's photo mask inspector about a switch from ACEI to ARB [...] the original note were not included. [facility] [place] [phone] Date: 07/17/16 Patient Name: Purnima Thacker : 1955 Diagnosis: neutropenia Referral to [site]: [facility] Orders: ? Labs: Fax results to . [x] Draw CBC, copper level, CMV PCR, mononucleosis screen on 07/20 Repeat CBC on 07/30 (to measure response of WBC after Neulasta) ? Growth factor: [x] Neulasta 6mg SQ injection x 1 on 07/20/2016 Signature: Markel Borjas MD beeper # [id number] documented in this encounter Plan of Treatment Upcoming Encounters Date Type Department Care Team (Late st Contact Info) Description 11/02/2024 12:00 PM EDT Appointment [place] [address] 11/02/2024 1:00 PM EDT Office Visit [place] [address] Magdalena Peralta MD [facility] [place] [address] 03/01/2025 4:15 PM EDT Office Visit Dermatology at [address] [place] [address] Marek Bonilla MD [address], [place] [address] documented as of this encounter Results * [...] HEMATOLOGY ORDERAB LES Performing Organization Address City/[facility]/ZIP Co de Phone Number EXTERNAL LAB * Mononucleosis Screen (07/20/2016 10:30 AM EST) Pathologist [facility] Mononucleosis Screen neg neg - neg EXTERNAL LAB Blood specimen (specimen) 07/20/2016 10:30 AM EST Markel Borjas MD IMMUNOLOGY ORDERAB LES EXTERNAL LAB * Copper, serum (07/20/2016 10:30 AM EST) Pathologist [facility] Copper (NOVEMBER) 1.09 0.75 - 1.45 EXTERNAL LAB Blood specimen (specimen) 07/20/2016 10:30 AM EST Markel Brojas MD LAB SEND OUT ORDER JODIE EXTERNAL LAB * CMV PCR, Quantitative (07/20/2016 10:30 AM EST) [facility] CMV PCR,Quantitati ve undetected EXTERNAL LAB [...] type documented in this encounter Care Teams Vendor Representatives Relationship Specialty Start Date End Date Deborah Quiroga, COOK TORTILLA PCP - General Family Medicine 03/24/16 02/04/23 documented as of this encounter
--- OUTSIDE RECORDS SUMMARY | 2024-07-13 14:14 | XMS_ITS | Encounter Summary ---
[place] [address] Care Team Providers Care Valet Runner Name Role Phone Mitchell Wilkes MD Primary Care Provider [phone] Reason for Visit * Reason Onset Date Comments Other 01/18/2014 Encounter Details Date Type Department Care Team (Late st Contact Info) Description 01/18/2014 Telephone Cardiology at [address] [address] Jesusita Garces Other Social History [...] 11/02/2024 12:00 PM EDT Appoint[place] [address] 11/02/2024 1:00 PM EDT [place] [address] Magdalena Peralta MD [facility] [place] [address] 03/01/2025 4:15 PM EDT Office Visit Dermatology at [place] [address] [place] [address] Marek Bonilla MD [address], [place] [address] documented as of this encounter Visit Diagnoses Not on filedocumented in this encounter Care Teams Valet Runner Relationship Specialty Start Date End Date Mitchell Wilkes MD [facility] PCP - General 06/24/10 01/19/14 documented as of this encounter
--- OUTSIDE RECORDS SUMMARY | 2024-07-13 14:14 | XMS_ITS | Encounter Summary ---
Author Organization [facility] Address [facility] [place] [address] Care Team Providers Care Supervisor Litharge Name Role Phone Junaid Deborah Shields APRN Primary Care Provider [phone] Encounter Details Date Type Department Care Team (Latest Contact Info) Description 05/19/2016 11:00 AM EDT Clinical [place] [phone] Nonrheumatic aortic valve stenosis Social History Tobacco [...] PM EDT Appoint[place] [address] 11/02/2024 1:00 PM EDT Office [place] [address] Magdalena Peralta MD [facility] [place] [address] 03/01/2025 4:15 PM EDT Office Visit Dermatology at [place] [address] [facility] [place] [address] Marek Bonilla MD [address], [place] [address] documented as of this encounter Procedures Procedure [...] (Bezet) 448 ms MUSE SYSTEM Calculated P [place] 37 degrees MUSE SYSTEM Calculated R [place] 31 degrees MUSE SYSTEM Calculated T [place] 25 degrees MUSE SYSTEM INTERPRETATION Normal sinus rhythm Normal ECG No previous ECGs available Confirmed by MD Becca, Deangelo ([id number]) on 05/19/2016 5:23:33 PM MUSE SYSTEM 05/19/2016 11:4 3 AM EDT 05/19/2016 5:23 PM EDT Alirio Esparza MD ECG ORDERABLES MUSE SYSTEM documented in this encounter Visit Diagnoses Diagnosis Nonrheumatic aortic valve stenosis Aortic valve disorders documented in this encounter Care Teams Supervisor Litharge Relationship Specialty Start Date End Date Deborah Quiroga, PET GROOMER PCP - General Family Medicine 03/24/16 02/04/23 documented as of this encounter
--- OUTSIDE RECORDS SUMMARY | 2024-07-13 14:14 | XMS_ITS | Encounter Summary ---
Author Organization [facility] [place] [address] Care Team Providers Care Welding Tester Name Role Phone Mitchell Wilkes MD Primary Care Provider [phone] Encounter Details Date Type Department Care Team (Late st Contact Info) Description 01/19/2014 Orders Only Cardiology at [address] [address] Chele Randolph PA [facility] [place] [address] Cardiomyopathy (Primary Dx) Social History [...] PM EDT Appointment [place] [address] 11/02/2024 1:00 PM EDT Office [place] [address] Magdalena Peralta MD [facility] [place] [address] 03/01/2025 4:15 PM EDT Office Visit Dermatology at [place] [address] [place] [address] Marek Bonilla MD [address], [place] [address] documented as of this encounter Procedures Procedure [...] cardiomyopathies documented in this encounter Care Teams Welding Tester Relationship Specialty Start Date End Date Mitchell Wilkes MD [facility] PCP - General 06/24/10 01/19/14 documented as of this encounter
--- OUTSIDE RECORDS SUMMARY | 2024-07-13 14:14 | XMS_ITS | Encounter Summary ---
Author Organization [facility] Address [facility] [place] [address] Care Team Providers Care Childcare Administrator Name Role Phone Deborah Quiroga ANURAG Primary Care Provider [phone] Encounter Details Date Type Department Care Team (Latest Contact Info) Description 05/19/2016 11:20 AM EDT Laboratory [place] [phone] Nonrheumatic aortic valve stenosis Social History Tobacco [...] 11/02/2024 12:00 PM EDT Appoint[place] [address] 11/02/2024 1:00 PM EDT Office [place] [address] Magdalena Peralta MD [facility] [place] [address] 03/01/2025 4:15 PM EDT Office Visit Dermatology at [address] [phone] Marek Bonilla MD [address] [place] [address] RD, [place] [address] documented as of this encounter Procedures Procedure Name Priority Date/Time Associated Diagnosis Comments SCAN, PERIPHERAL BLOOD Routine 05/19/2016 11:32 AM EDT HEMOGRAM Routine 05/19/2016 11:32 AM EDT Nonrheumatic aortic valve stenosis DIFFERENTIAL, AUTOMATED Routine 05/19/2016 11:32 AM EDT Nonrheumatic aortic valve stenosis TYPE AND SCREEN, SDP (FUTURE SURGERY, [facility] SAME DAY PROGRAM ONLY) Routine 05/19/2016 11:32 [...] [facility] RBC Morphology Normal [facility] Blood specimen (specimen) 05/19/2016 11:32 AM EDT 05/19/2016 11:41 AM EDT Narrative Resulting Agency Comment Spec In Lab Alirio Esparza MD HEMATOLOGY ORDERABL ES [facility] [place] [address] * (ABNORMAL) Differential, Automated (05/19/2016 11:32 AM EDT) Neutrophil % 25.9 % [facility] Neutrophil Absolute 0.42(Crit ical) 1.70 - 6.10 x10(3)/[facility] Comment: This result has been called to DR ALIRIO ESPARZA by Alivia Ibarra on 05 19 2016 at 1228, and has been read back. Lymph % 59.9 % [facility] Lymphocytes Abs 1.0 0.9 - 3.2 x10(3)/[facility] Monocyte % 13.0 % [facility] Monocyte Abs 0.2(L) 0.3 - 0.9 x10(3)/[facility] Eos % 0.6 % [facility] Eosinophils Abs 0.0 0.0 - 0.4 x10(3)/[facility] Basophil % 0.6 % [facility] [...] Absolute 0.00 0.00 - 0.04 x10(3)/ L [facility] Blood specimen (specimen) 05/19/2016 11:32 AM EDT 05/19/2016 11:41 AM EDT Narrative Resulting Agency Comment Spec In Lab Alirio Esparza MD HEMATOLOGY ORDERABL ES [facility] [place] [address] * (ABNORMAL) Hemogram (05/19/2016 11:32 AM EDT) White Blood Cell 1.6(Criti gabrielle) 4.0 - 9.5 x10(3)/mc L [facility] [...] Platelet 227 145 - 357 x10(3)/ L [facility] RDW Standard Deviation 40.5 37.0 - 46.0 [facility] RDW coefficient of variation 11.5 11.5 - 14.1 % [facility] Mean Platelet Volume 8.4 7.6 - 12.9 fL [facility] NRBC% auto 0.0 % [facility] NRBC Absolute 0.000 0.000 - 0.000 x10(3)/mc L [facility] Blood specimen (specimen) 05/19/2016 11:32 AM EDT 05/19/2016 11:41 AM EDT Narrative Resulting Agency Comment Spec In Lab Alirio Esparza MD HEMATOLOGY ORDERABL ES [facility] [place] [address] * Antibody screen (05/19/2016 11:32 AM EDT) Ab Screen Interp Negative [facility] Expires at [id number] on: 07/03/2016 [facility] Comment: Corrected from 06/11/16 12:00 [Unknown] on 06/09/16 05:51 by Bethanie Tomlinson I.. Corrected from 07/03/16 12:00 [Unknown] on 05/21/16 06:00 by Shelia Barrera Blood specimen (specimen) 05/19/2016 11:32 AM EDT 05/19/2016 11:35 AM EDT Narrative Resulting Agency Comment Spec In Lab Alirio Esparza MD BLOOD BANK LAB BETH ORTEGAROMERO [facility] [place] [address] * ABO/Rh Typing (05/19/2016 11:32 AM EDT) Pathologist [facility] ABORH Type B Pos [facility] Blood specimen (specimen) 05/19/2016 11:32 AM EDT 05/19/2016 11:35 AM EDT Narrative Resulting Agency Comment Spec In Lab Alirio Esparza MD BLOOD BANK LAB BETH ALEJO Performing Organization Address City/[facility]/ZIP Co de Phone Number [facility] [place] [address] * Basic Metabolic Panel (non-fasting) (05/19/2016 11:32 [...] the following links into your internet browser. [email or web address] Blood specimen (specimen) 05/19/2016 11:32 AM EDT 05/19/2016 11:41 AM EDT Narrative Resulting Agency Comment Spec In Lab Alirio Esparza MD CHEMISTRY ORDERABLE S [facility] [place] [address] documented in this encounter Visit Diagnoses Diagnosis Nonrheumatic aortic valve stenosis Aortic valve disorders documented in this encounter Care Teams Childcare Administrator Relationship Specialty Start Date End Date Deborah Quiroga, ANURAG PCP - General Family Medicine 03/24/16 02/04/23 documented as of this encounter
--- OUTSIDE RECORDS SUMMARY | 2024-07-13 14:14 | XMS_ITS | Encounter Summary ---
Author Organization [facility] [place] [address] Care Team Providers Care Finish Rolls Operator Name Role Phone JerelPasqualeSofiaemiliano Garcia APRN Primary Care Provider [phone] Encounter Details Date Type Department Care Team (Latest Contact Info) Description 11/12/2014 8:10 AM EDT - 11/12/2014 11:59 PM EDT [place] [phone] CLINIC, DR ABE Burrell, Antelmo Porter MD [facility] [address] [place], [place] [address] Discharge Disposition: Home Social History Tobacco Use [...] 11/02/2024 12:00 PM EDT [place] [address] 11/02/2024 1:00 PM EDT Office [place] [phone] Magdalena Peralta MD [facility] DR RHEUMATOLOGY DEPT [place], [place] [address] 03/01/2025 4:15 PM EDT Office Visit Dermatology at [place] [address] [place] [address] Marek Bonilla MD [address], [place] [address] documented as of this encounter Procedures Procedure [...] mLs documented in this encounter Care Teams Finish Rolls Operator Relationship Specialty Start Date End Date Sofia Beltrán APRN [address] [place] [address] PCP - General 11/12/14 03/23/16 documented as of this encounter
--- OUTSIDE RECORDS SUMMARY | 2024-07-13 14:14 | XMS_ITS | Encounter Summary ---
Author Organization [facility] Address [facility] [place] [address] Care Team Providers Care Poly Area Supervisor Name Role Phone Junaid, Deborah Shields APRN Primary Care Provider [phone] [phone] Reason for Visit * Auth/Cert Specialty Diagnoses / Procedures Referred By Crispin t Referred To Contact Diagnoses AVS Procedures CARDIAC CATHETERIZATION Referral ID Status Reason Start Date Expiration Date Visits Re quested Visits Authorized [id number] 1 1 Encounter Details Date Type Department Care Team (Late st Contact Info) Description 06/03/2016 6:32 AM EDT - 06/03/2016 1:10 PM EDT Hospital Encounter [place] [phone] Anjum Oliveros II, MD [facility] [place] [address] Mario Alberto Escobedo MD [facility] [place] [address] Aortic valve stenosis, unspecified etiology; Nonrheumatic aortic [...] by your doctor, do not take any etbh-uyh-kkvmmoh medicinesor herbal preparations without first discussing this with your doctor or pharmacist. There is the possibility of side effects and interactions when these are combined. Follow Up Care Who to call with questions or problems If there are any questions or problems that you think might be related to your cardiac cath or angioplasty, contact the iridologist supervisor stone by calling [facility] at . * Patient Instructions* Felicia Corrigan - 06/03/2016 9:33 AM EDT Cardiology Instructions Call your doctor if: Chest pain, dyspnea, pain or swelling in legs occurs. If you have non-emergent questions between now and the time of your follow up appointments: -During 8am-5pm Wednesday through Wednesday call [phone] to speak with a nurse in the cardiology clinic -All other times call [phone] and ask to speak to the go cart mechanic supervisor stone. MEDICATIONS - restart your spironolactone, discontinue prior [...] Appointments: Primary care provider: Cardiology: Deborah Hahn, FARM MANAGEMENT PROFESSOR [phone] Follow up as planned or as needed. Dr. Esparza [phone] Other follow-up appointment: Hematology - Dr. Mario [...] 11/02/2024 12:00 PM EDT Appoint[place] [address] 11/02/2024 1:00 PM EDT Office [place] [address] Magdalena Peralta MD [facility] [place] [address] 03/01/2025 4:15 PM EDT Office Visit Dermatology at [place] [address] [facility] [place] [address] Marek Bonilla MD [address], [address] [place] [address] documented as of this encounter Procedures Procedure [...] AM EDT) Green Hold Sample in lab. [facility] Blood specimen (specimen) Venous Draw / Unknown 06/03/2016 11:45 AM EDT 06/03/2016 12:12 PM EDT Mario Alberto Escobedo MD CHEMISTRY ORDERABLES [facility] [place] [place] [address] * Methylmalonic acid, serum (06/03/2016 11:45 AM EDT) Methylmalonic Acid (NOVEMBER) 0.21 <=0.40 nmol/mL [facility] Comment: Test Performed by: [facility] - [address] [address] Poultry Pathologist: Raymond Chaudhry II, M.D., Ph.D. Blood specimen (specimen) 06/03/2016 11:45 AM EDT 06/03/2016 1:57 PM EDT Narrative Resulting Agency Comment Spec In Lab Mario Alberto Escobedo MD LAB SEND OUT ORDERAB LES Performing Organization Address City/[facility]/ZIP Co de Phone Number [facility] [place] [address] * Granulocyte Antibody (06/03/2016 11:45 AM EDT) Granulocyte Ab (NOVEMBER) Negative Not Applicable [facility] Comment: ADDITIONAL INFORMATION Method: Immunofluorescent Assay Performing Laboratory CLIA# [id number] This test was developed and its performance characteristics determined by [facility] in a manner consistent with CLIA requirements. This test has not been cleared or approved by the U.S. Food and Drug Administration. Test Performed by: [facility] [place] [address] Poultry Pathologist: Raymond Chaudhry II, M.D., Ph.D. Blood specimen (specimen) 06/03/2016 11:45 AM EDT 06/03/2016 1:57 PM EDT Narrative Resulting Agency Comment Spec In Lab Mario Alberto Escobedo MD LAB SEND OUT ORDERAB LES Performing Organization Address [facility] Co de Phone Number [facility] [place] [address] * TSH (06/03/2016 11:45 AM EDT) Thyroid Stimulating Hormone 2.18 0.27 - 4.20 mcIU/mL [facility] Blood specimen (specimen) 06/03/2016 11:45 AM EDT 06/03/2016 12:11 PM EDT Narrative Resulting Agency Comment Spec In Lab Mario Alberto Escobedo MD CHEMISTRY ORDERABLES Performing Organization Address City/[facility]/ZIP Co de Phone Number [facility] [place] [address] * Homocysteine Total, Plasma (06/03/2016 11:45 AM EDT) Homocystine 9 <=15 mcmol/L [facility] Blood specimen (specimen) 06/03/2016 11:45 AM EDT 06/03/2016 12:11 PM EDT Narrative Resulting Agency Comment Spec In Lab Mario Alberto Escobedo MD CHEMISTRY ORDERABLES Performing Organization Address City/[facility]/ZIP Co de Phone Number [facility] [place] [address] * Folate, serum (06/03/2016 11:45 AM EDT) Folate >20.0 4.8 - 24.2 ng/mL [facility] Blood specimen (specimen) 06/03/2016 11:45 AM EDT 06/03/2016 12:04 PM EDT Narrative Resulting Agency Comment Spec In Lab Mario Alberto Escobedo MD CHEMISTRY ORDERABLES Performing Organization Address City/[facility]/ZIP Co de Phone Number [facility] [place] [address] * (ABNORMAL) Sedimentation rate (06/03/2016 11:45 AM EDT) Sedimentation Rate Automated 41(H) 0 - 20 mm/hr [facility] Blood specimen (specimen) 06/03/2016 11:45 AM EDT 06/03/2016 12:04 PM EDT Narrative Resulting Agency Comment Spec In Lab Mario Alberto Escobedo MD HEMATOLOGY ORDERABLE S [facility] [place] [address] * Lactate Dehydrogenase (06/03/2016 11:45 AM EDT) Lactate Dehydrogenase 164 110 - 220 unit/L [facility] Blood specimen (specimen) 06/03/2016 11:45 AM EDT 06/03/2016 12:11 PM EDT Narrative Resulting Agency Comment Spec In Lab Mario Alberto Escobedo MD CHEMISTRY ORDERABLES [facility] [place] [address] * Comprehensive metabolic panel (non-fasting) (06/03/2016 11:45 [...] the following links into your internet browser. [email or web address] Blood specimen (specimen) 06/03/2016 11:45 AM EDT 06/03/2016 12:11 PM EDT Narrative Resulting Agency Comment Spec In Lab Mario Alberto Escobedo MD CHEMISTRY ORDERABLES [facility] [place] [address] documented in this encounter Visit Diagnoses Diagnosis [...] Hernandez) documented in this encounter Care Teams Poly Area Supervisor Relationship Specialty Start Date End Date Deborah Quiroga, FARM MANAGEMENT PROFESSOR PCP - General Family Medicine 03/24/16 02/04/23 documented as of this encounter
--- OUTSIDE RECORDS SUMMARY | 2024-07-13 14:14 | XMS_ITS | Encounter Summary ---
Author Organization [facility] Address [place] [address] Care Team Providers Care Foundry Process Engineer Name Role Phone Deborah Quiroga APRN Primary Care Provider [phone] Encounter Details Date Type Department Care Team (Latest Contact Info) Description 05/19/2016 11:52 AM EDT - 05/19/2016 11:59 PM EDT Hospital Encounter XRay at [address] [place] [address] Alirio Esparza MD Nonrheumatic aortic valve stenosis [...] 11/02/2024 12:00 PM EDT Appointment [place] [address] 11/02/2024 1:00 PM EDT Office [place] [address] Magdalena Peralta MD [facility] [place] [address] 03/01/2025 4:15 PM EDT Office Visit Dermatology at [place] [address] [facility] [place] [address] Marek Bonilla MD [address], [place] [address] documented as of this encounter Procedures Procedure [...] documented in this encounter Care Teams Foundry Process Engineer Relationship Specialty Start Date End Date Deborah Quiroga, FRICKERTRON CHECKER PCP - General Family Medicine 03/24/16 02/04/23 documented as of this encounter
--- OUTSIDE RECORDS SUMMARY | 2024-07-13 14:14 | XMS_ITS | Encounter Summary ---
Author Organization [facility] [place] [address] Care Team Providers Care Cant Gang Sawyer Name Role Phone Ashley Quirogan Cornelius ANURAG Primary Care Provider [phone] Encounter Details Date Type Department Care Team (Late st Contact Info) Description 03/24/2016 Notes [place] [phone] Alfa Lua Social History Tobacco Use Types [...] assessments completed: Wadsworth Score: 6/6 IADL: 7/7 Stage Director Strength Trials: 18.4, 15.0, 16.8 (right hand dominant) 5 meter walk test in seconds x3: 4.98, 4.88, 4.45 KCCQol: 98% Alfa Lua documented in this encounter Plan of Treatment Upcoming Encounters Date Type Department Care Team (Late st Contact Info) Description 11/02/2024 12:00 PM EDT Appointment [place] [address] 11/02/2024 1:00 PM EDT Office [place] [address] Magdalena Peralta MD [facility] [place] [address] 03/01/2025 4:15 PM EDT Office Visit Dermatology at [place] [address] [facility] [place] [address] Marek Bonilla MD [address], [place] [address] documented as of this encounter Visit Diagnoses Not on filedocumented in this encounter Care Teams Cant Gang Sawyer Relationship Specialty Start Date End Date Deborah Quiroga APRN PCP - General Family Medicine 03/24/16 02/04/23 documented as of this encounter
--- OUTSIDE RECORDS SUMMARY | 2024-07-13 14:14 | XMS_ITS | Encounter Summary ---
Author Organization [facility] [place] [address] Care Team Providers Care Cyber Reverse Engineer Name Role Phone Deborah Quiroga ANURAG Primary Care Provider [phone]- [phone] Encounter Details Date Type Department Care Team (Late st Contact Info) Description 05/22/2016 Orders Only Cardiology at [address] [address] Chele Randolph PA [facility] [place] [address] Aortic valve stenosis, unspecified etiology [...] 11/02/2024 12:00 PM EDT Appointment [place] [address] 11/02/2024 1:00 PM EDT Office [place] [address] Magdalena Peralta MD [facility] [place] [address] 03/01/2025 4:15 PM EDT Office Visit Dermatology at [place] [address] [place] [address] Marek Bonilla MD [address], [place] [address] documented as of this encounter Procedures Procedure Name Priority Date/Time Associated Diagnosis Comments CARDIAC CATHETERIZATION Routine 06/03/20 16 9:13 AM EDT Aortic valve stenosis, unspecified etiology documented in this encounter Results * CARDIAC CATHETERIZATION (06/03/2016 9:13 AM EDT) Anatomical Region Laterality Modality Other Narrative 06/03/2016 10:13 AM EDT ?[facility] ? Cardiac Catheterization/Intervention Report ? Patient Name: Purnima Thacker. ? Procedure Date: 06/03/2016 ? A #: [id number] ? Primary Physician: Nitesh Escobedo ? Case #: [id number] ? File Name: [id number] ? Catheterization Order Number: [id number] ? [facility] ? Final Report [place], [place] ? Patient Name: ? Purnima M. Kirstie ? ID#: ?[id number] ? : ?1955 ? Procedure Date: ? [...] no symptom, no angina (w/i 14 days). [place] ?Cardiovascular Society angina class was 0. This [...] ? Procedure Nitesh Marroquin MD - 09/21/2016 [facility] Cardiac Catheterization/Intervention Report Patient Name: Purnima Thacker Procedure Date: 06/03/2016 A #: [id number] Primary Physician: Nitesh Escobedo Case #: [id number] File Name: [id number] Catheterization Order Number: [id number] [facility] FinalReport [place], [place] Patient Name: Purnima Thacker ID#:[id number] :1955 Procedure Date: June 03, 2016 Case #: [id number] Room: 1 Case Physician: Nitesh Escobedo M.D. Start: 08:22 Fellow: Fleicia Corrigan M.D. Admission:06/03/2016 Linda Cary M.D. Discharge:06/03/2016 [...] with: no symptom, no angina (w/i 14 days).[place] Cardiovascular Society angina class was 0. This [...] documented in this encounter Care Teams Cyber Reverse Engineer Relationship Specialty Start Date End Date Deborah Quiroga, QUALITY ENGINEER MEDICAL DEVICE PCP - General Family Medicine 03/24/16 02/04/23 documented as of this encounter
--- OUTSIDE RECORDS SUMMARY | 2024-07-13 14:14 | XMS_ITS | Encounter Summary ---
Author Organization [facility] Address [facility] [place] [address] Care Team Providers Care Form Setter/Driver Name Role Phone Deborah Quiroga ANURAG Primary Care Provider [phone] [phone] Encounter Details Date Type Department Care Team (Late st Contact Info) Description 07/31/2016 External Results [place]emat[place] [address] Alexandrea Greenwood RN Neutropenia, unspecified [...] 11/02/2024 12:00 PM EDT [place]oint[place] [address] 11/02/2024 1:00 PM EDT Office [place] [address] Magdalena Peralta MD [facility] [place] [address] 03/01/2025 4:15 PM EDT Office Visit Dermatology at [address] [address] Marek Bonilla MD [address], [place] [address] documented as of this encounter Procedures Procedure [...] type documented in this encounter Care Teams Form Setter/Driver Relationship Specialty Start Date End Date Deborah Quiroga APRN PCP - General Family Medicine 03/24/16 02/04/23 documented as of this encounter
--- OUTSIDE RECORDS SUMMARY | 2024-07-13 14:14 | XMS_ITS | Encounter Summary ---
Author Organization [facility] [place] [address] Care Team Providers Care Screw Cutter Name Role Phone Ashley Quirogazac Shields APRN Primary Care Provider [phone] [phone] Reason for Visit * Consultation (Urgent) - Closed Specialty Diagnoses / Procedures Referred By Contac t Referred To Contact Cardiac Surgery Diagnoses aortic stenosis, consideration for valve replacement Antelmo Burrell MD [address] [place] [address] [place] [address] Alirio Esparza MD [facility] DR C[place] [address] Referral ID Status Reason Start Date Expiration Date V isits Requested Visits Authorized [id number] Closed Connection Center 03/04/2016 03/04/2017 1 1 Encounter Details Date Type Department Care Team (Late st Contact Info) Description 03/24/2016 10:40 AM EDT Office Visit [place] [address] Alirio Esparza MD Aortic valve stenosis, unspecified [...] is a patient of Antelmo Burrell [facility] Cardiology. Mrs. Thacker is being sent for [...] 30 minute visit, 20 minutes were spent [id number] with the patient discussing aortic stenosis and valve replacement. documented in this encounter Plan of Treatment Upcoming Encounters Date Type Department Care Team (Late st Contact Info) Description 11/02/2024 12:00 PM EDT Appointment [place] [address] 11/02/2024 1:00 PM EDT Office Visit [place] [address] Magdalena Peralta MD [facility] [place] [address] 03/01/2025 4:15 PM EDT Office Visit Dermatology at [place] [address] [facility] [place] [address] Marek Bonilla MD [address], [address] [place] [address] documented as of this encounter Visit Diagnoses Diagnosis Aortic valve stenosis, unspecified etiology documented in this encounter Care Teams Screw Cutter Relationship Specialty Start Date End Date Deborah Quiroga APRN PCP - General Family Medicine 03/24/16 02/04/23 documented as of this encounter
--- OUTSIDE RECORDS SUMMARY | 2024-07-13 14:14 | XMS_ITS | Encounter Summary ---
[place] [address] Care Team Providers Care Group Insurance Specialist Name Role Phone Deborah Quiroga ANURAG Primary Care Provider [phone]- [phone] Reason for Visit * Reason Onset Date Comments Medical Care Coordination 07/17/2016 Encounter Details Date Type Department Care Team ([facility] Contact Info) Description 07/17/2016 Telephone Hematology [place] [address] Alexandrea Greenwood RN Medical Care Coordination Social [...] 12:07 PM EST Message received from secretary receptionist: Injection/Infusion Referral Call placed to [phone]). Spoke w/ Pasquale. Services to be provided for pt are: Labs @ 10am ([facility]) & Neulasta @ 11am on 07/20/16, CBC only on 07/30/16 Pasquale confirmed they would provide services to pt and I left [facility] [place] pt to call for appt info. Pt demographics, office note, med list and orders faxed to [facility] & [facility] documented in this encounter Plan of Treatment Upcoming Encounters Date Type Department Care Team (Late st Contact Info) Description 11/02/2024 12:00 PM EDT Appointment [place] [address] 11/02/2024 1:00 PM EDT Office [place] [address] Magdalena Peralta MD [facility] [place] [address] 03/01/2025 4:15 PM EDT Office Visit Dermatology at [place] [address] [place] [address] Marek Bonilla MD [address], [address] [place] [address] documented as of this encounter Visit Diagnoses Not on filedocumented in this encounter Care Teams Group Insurance Specialist Relationship Specialty Start Date End Date Deborah Quiroga APRN PCP - General Family Medicine 03/24/16 02/04/23 documented as of this encounter
--- OUTSIDE RECORDS SUMMARY | 2024-07-13 14:14 | XMS_ITS | Encounter Summary ---
Author Organization [facility] [place] [address] Care Team Providers Care Hearings Reporter Name Role Phone Deborah Quiroga APRN Primary Care Provider Encounter Details Date Type Department Care Team (Latest Contact Info) Description 07/10/2016 2:54 PM EST - 07/10/2016 11:59 PM EST [place] [address] Discharge Disposition: Home Social History Tobacco Use [...] 11/02/2024 12:00 PM EDT Appointment [place] [address] 11/02/2024 1:00 PM EDT Office [place] [address] Magdalena Peralta MD [facility] [place] [address] 03/01/2025 4:15 PM EDT Office Visit Dermatology at [place] [address] [facility] [place] [address] Marek Bonilla MD [address], [place] [address] documented as of this encounter Procedures Procedure Name Priority Date/Time Associated Diagnosis Comments BONE MARROW FINAL REPORT Routine 07/10/2016 3:43 PM EST documented in this encounter Results * Bone Marrow Final Report (07/10/2016 3:43 PM EST) Final Diagnosis [id number] ?Location: [facility] The signing pathologist has (i) examined the relevant preparation(s) for the specimen(s) and (ii) rendered or confirmed the diagnosis(es). . ? Bone Marrow Final DIAGNOSIS BONE MARROW (PERIPHERAL SMEAR, ASPIRATE SMEAR, TOUCH PREP, CLOT SECTION, CORE BIOPSY); [OSR# [id number], COLLECTED 06/23/2016, 19 SLIDES]: ?? 1. ??Normocellular [...] clonal lymphoproliferative or myeloproliferative ? disorder (OSR# [id number]) ?Chromosome analysis on the marrow aspirate revealed a normal female karyotype; ?46,XX[25] ??(OSR# [id number]) Electronically signed by: ??Elian Guillen MD Verified: [...] 3/uL Band/Seg 0.52 x103/uL; Lymph 0.75 x103/uL; Clay 0.15 x103/uL; Eos 0.01%; Baso 0.01 x10 [...] plasma cells represent 3-4% of the cellularity [place] ? Polytypic plasma cell staining, high background Lambda ?Polytypic plasma cell staining, high background Block: ? B2 (Core biopsy 2) Fixative: ?? Formalin ANTIBODY: ?? RESULT/COMMENT CD3 ? Scattered small lymphocytes and lymphoid aggregates highlighted CD20 ?Few scattered small lymphocytes stain ( ?? <CD3 in aggregates) CD138 ? Scattered plasma cells represent 3-4% of the cellularity [place] ? Polytypic plasma cell staining, high background Lambda ?Polytypic plasma cell staining, high background Note: The immunoperoxidase stains reported above were developed and their performance characteristics determined by [facility]. ??They have not been cleared [...] CONSULTATION CASE A - 19 slides labeled [id number], collection date 06/23/2016. [id number] Report to: [facility] Surgical Pathology Department [facility], [facility], [address]nd Floor [address] [place] [id number] 07/13/2016 11:38 AM EST [facility] Consult Case 07/10/2016 3:43 PM EST 07/10/2016 3:43 PM EST Nitesh Pina Jr., MD PATHOLOGY/CYTOLOGY O RDERABLES [facility] [place] [address] documented in this encounter Visit Diagnoses Not on filedocumented in this encounter Care Teams Hearings Reporter Relationship Specialty Start Date End Date Deborah Quiroga APRN PCP - General Family Medicine 03/24/16 02/04/23 documented as of this encounter
--- OUTSIDE RECORDS SUMMARY | 2024-07-13 14:14 | XMS_ITS | Encounter Summary ---
Author Organization [facility] Address [facility] [place] [address] Care Team Providers Care Inspector Bullet Slugs Name Role Phone Deborah Quiroga ANURAG Primary Care Provider +1- [phone] Encounter Details Date Type Department Care Team (Late st Contact Info) Description 07/31/2016 Orders Only Hematology [place] [address] Alexandrea Greenwood RN Neutropenia, unspecified type Social [...] EDT Appointment [place] [address] 11/02/2024 1:00 PM EDT Office [place] [address] Magdalena Peralta MD [facility] [place] [address] 03/01/2025 4:15 PM EDT Office Visit Dermatology at [address] [address] Marek Bonilla MD [address], [place] [address] documented as of this encounter Results * [...] type documented in this encounter Care Teams Inspector Bullet Slugs Relationship Specialty Start Date End Date Deborah Quiroga, SPOOLING MACHINE OPERATOR PCP - General Family Medicine 03/24/16 02/04/23 documented as of this encounter
--- OUTSIDE RECORDS SUMMARY | 2024-07-13 14:14 | XMS_ITS | Encounter Summary ---
[place] [address] Care Team Providers Care Logging Truck Driver Name Role Phone JunaidDeborah APRN Primary Care Provider [phone] Reason for Visit * Reason Onset Date Comments Pre Procedure Call 06/18/2016 Encounter Details Date Type Department Care Team (Late st Contact Info) Description 06/18/2016 Telephone Hematology [place] [address] Alexandrea Greenwood RN Pre Procedure [...] PM EDT Appointment [place] [address] 11/02/2024 1:00 PM EDT Office [place] [address] Magdalena Peralta MD [facility] [place] [address] 03/01/2025 4:15 PM EDT Office Visit Dermatology at [place] [address] [place] [phone] Marek Bonilla MD [address], [place] [address] documented as of this encounter Visit Diagnoses Not on filedocumented in this encounter Care Teams Logging Truck Driver Relationship Specialty Start Date End Date Deborah Quiroga APRN PCP - General Family Medicine 03/24/16 02/04/23 documented as of this encounter
--- OUTSIDE RECORDS SUMMARY | 2024-07-13 14:14 | XMS_ITS | Encounter Summary ---
Author Organization [facility] [place] [address] Care Team Providers Care Bindery Machine Feeder Offbearer Name Role Phone Junaid, Deborah Shields APRN Primary Care Provider [phone] Encounter Details Date Type Department Care Team (Late st Contact Info) Description 05/19/2016 10:00 AM EDT Office [place] [phone] Alirio Esparza MD Nonrheumatic aortic valve stenosis [...] 11/02/2024 12:00 PM EDT Appointment [place] [address] 11/02/2024 1:00 PM EDT Office [place] [address] Magdalena Peralta MD [facility] [place] [address] 03/01/2025 4:15 PM EDT Office Visit Dermatology at [address] [place] [address] Marek Bonilla MD [address] [address], [place] [address] documented as of this encounter Results * [...] (Bezet) 448 ms MUSE SYSTEM Calculated P [place] 37 degrees MUSE SYSTEM Calculated R [place] 31 degrees MUSE SYSTEM Calculated T [place] 25 degrees MUSE SYSTEM INTERPRETATION Normal [...] the following links into your internet browser. [email or web address] Blood specimen (specimen) 05/19/2016 11:32 AM EDT 05/19/2016 11:41 AM EDT Narrative Resulting Agency Comment Spec In Lab Alirio Esparza MD CHEMISTRY ORDERABLE S [facility] [place] [address] documented in this encounter Visit Diagnoses Diagnosis Nonrheumatic aortic valve stenosis Aortic valve disorders Nonrheumatic aortic valve stenosis Aortic valve disorders documented in this encounter Care Teams Bindery Machine Feeder Offbearer Relationship Specialty Start Date End Date Deborah Quiroga APRN PCP - General Family Medicine 03/24/16 02/04/23 documented as of this encounter
--- OUTSIDE RECORDS SUMMARY | 2024-07-13 14:14 | XMS_ITS | Encounter Summary ---
Author Organization Formerly [facility] Address [facility] [place] [address] Care Team Providers Care Valve Repairer Reclamation Name Role Phone Junaid Deborah Shields APRN Primary Care Provider [phone] Encounter Details Date Type Department Care Team (Latest Contact Info) Description 06/19/2016 - 06/19/2016 11:59 PM EST Hospital Encounter Radiology Library [place] [phone] Nitesh Pina Jr., MD [facility] [place] [address] Pain Discharge Disposition: Home Social History Tobacco [...] 12:00 PM EDT Appointment [place] [address] 11/02/2024 1:00 PM EDT Office [place] [address] Magdalena Peralta MD [facility] [place] [address] 03/01/2025 4:15 PM EDT Office Visit Dermatology at [address] [place] [address] Marek Bonilla MD [address] [facility], [place] [address] documented as of this encounter Procedures Procedure Name Priority Date/Time Associated Diagnosis Comments FILM LIBRARY STORAGE ONLY CT CHEST ABDOMEN PELVIS Routine 06/19/2016 12:00 AM EST Pain documented in this encounter Results * Film Library- Storage Only CT Chest Abdomen Pelvis (06/19/2016 12:00 AM EST) Narrative [facility] - 06/20/2016 8:53 AM EST This exam is for storage only and is auto-finalizing. Nitesh Pina Jr., MD IMG FILM LIBRARY ORD ERABLES [place], [place] documented in this encounter Visit Diagnoses Diagnosis Pain Generalized pain documented in this encounter Care Teams Valve Repairer Reclamation Relationship Specialty Start Date End Date Deborah Quiroga APRN PCP - General Family Medicine 03/24/16 02/04/23 documented as of this encounter
--- OUTSIDE RECORDS SUMMARY | 2024-07-13 14:14 | XMS_ITS | Encounter Summary ---
Author Organization [facility] Address [facility] [place] [address] Care Team Providers Care Willower Name Role Phone Deborah Quiroga ANURAG Primary Care Provider [phone] Encounter Details Date Type Department Care Team (Late st Contact Info) Description 06/09/2016 Orders Only [place]ematology [place] [address] Nitesh Pina Jr., MD [facility] [address] HEMATOLOGY [place] [address] Cyclical neutropenia Social History Tobacco Use Types [...] 11/02/2024 12:00 PM EDT Appointment [place] [address] 11/02/2024 1:00 PM EDT Office [place] [address] Magdalena Peralta MD [facility] DR RHEUMATOLOGY DEPT [place], [place] [phone] 03/01/2025 4:15 PM EDT Office Visit Dermatology at [place] [address] [place] [address] Marek Bonilla MD [address], [place] [address] documented as of this encounter Results * Immunophenotyping Flow Cytometry (06/09/2016 4:53 PM EST) Immunophenotyping Flow See Comment [facility] Comment: When completed by the Pathologist, the Flow Cytometry Report ([id number]) will display under the Pathology Results section within eD. Specimen of unknown material (specimen) 06/09/2016 4:53 PM EST 06/09/2016 5:00 PM EST Narrative Resulting Agency Comment Spec In Lab Nitesh Pina Jr., MD HEMATOLOGY ORDERABLE S Performing Organization Address City/State/[facility] Co de Phone Number [facility] [place] [address] documented in this encounter Visit Diagnoses Diagnosis Cyclical neutropenia Cyclic neutropenia documented in this encounter Care Teams Willower Relationship Specialty Start Date End Date Deborah Quiroga APRN PCP - General Family Medicine 03/24/16 02/04/23 documented as of this encounter
--- OUTSIDE RECORDS SUMMARY | 2024-07-13 14:14 | XMS_ITS | Encounter Summary ---
Author Organization [facility] Address [facility] [place] [address] Care Team Providers Care Art Director Name Role Phone Deborah Quiroga ANURAG Primary Care Provider [phone] Encounter Details Date Type Department Care Team (Late st Contact Info) Description 07/22/2016 External Results Hematology [place] [address] Alexandrea Greenwood RN Neutropenia, unspecified [...] 11/02/2024 12:00 PM EDT Appointment [place] [address] 11/02/2024 1:00 PM EDT Office [place] [address] Magdalena Peralta MD [facility] [place] [address] 03/01/2025 4:15 PM EDT Office Visit Dermatology at [address] [address] Marek Bonilla MD [address], [place] [address] documented as of this encounter Procedures Procedure Name Priority Date/Time Associated Diagnosis Comments COPPER, SERUM Routine 07/20/2016 10:30 AM EST Neutropenia, unspecified type CMV PCR, QUANTITATIVE Routine 07/20/2016 10:30 AM EST Neutropenia, unspecified type MONONUCLEOSIS SCREEN (APD/[facility]) Routine 07/20/2016 10:30 AM EST Neutropenia, unspecified type CBC (WITH DIFF) Routine 07/20/2016 10:30 AM EST Neutropenia, unspecified type documented in this encounter Results * Copper, serum (07/20/2016 10:30 AM EST) Copper (NOVEMBER) 1.09 0.75 - 1.45 EXTERNAL LAB Blood specimen (specimen) 07/20/2016 10:30 AM EST Markel Borjas MD LAB SEND OUT ORDER JODIE Performing Organization Address [facility]/ZIP Co de Phone Number EXTERNAL LAB * [...] type documented in this encounter Care Teams Art Director Relationship Specialty Start Date End Date Deborah Quiroga, AFFILIATE MARKETING COORDINATOR PCP - General Family Medicine 03/24/16 02/04/23 documented as of this encounter
--- OUTSIDE RECORDS SUMMARY | 2024-07-13 14:14 | XMS_ITS | Encounter Summary ---
Author Organization [facility] Address [facility] [place] [address] Care Team Providers Care Plastic Surgery Specialist Name Role Phone Eitan Danni ANURAG Primary Care Provider Encounter Details Date Type Department Care Team (Latest Contact Info) Description 01/23/2014 7:45 AM EDT - 01/23/2014 5:50 PM EDT Hospital En[place] [address] Alan Jacobson MD [facility] [place] [address] Cardiomyopathy; SOB (shortness of breath) Discharge Disposition: [...] by your doctor, do not take any pmkb-anm-pnavzdz medicines or herbal preparations without first discussing this with your doctor or pharmacist. There is the possibility of side effect and interactions when these are combined. Follow up Care Who to Call with Questions or Problems If there are any questions or problems that you think might be related to your cardiac cath or angioplasty, contact the language tutor rural health consultant by calling [facility] at . [...] 11/02/2024 12:00 PM EDT Appointment [place] [phone] 11/02/2024 1:00 PM EDT Office [place] [address] Magdalena Peralta MD [facility] [place] [address] 03/01/2025 4:15 PM EDT Office Visit Dermatology at [place] [address] [facility] [place] [address] Marek Bonilla MD [address] [place] [address] documented as of this encounter Procedures Procedure Name Priority Date/Time Associated Diagnosis Comments ECHOCARDIOGRAM TRANSTHORACIC Routine 01/23/2014 3:17 PM EDT SOB (shortness of breath) documented in this encounter Results * Echocardiogram Transthoracic(Leb) (01/23/2014 3:17 PM EDT) [facility] EF 50 HEARTLAB SYSTEM Anatomical Region Laterality Modality Other 01/23/2014 Narrative 01/23/2014 4:35 PM EDT Procedure: ? Transthoracic Echocardiogram Patient: ? ANDREW ONESIMO M ?(Age): 1955(58) Med Rec#: ?[id number] ? Sex: ?F ? Site Loc: ?[facility] ? Ht / Wt: ??158(cm)/93(kg) Pt. Loc: ? Adult Floor ?BSA: ?2.02 Study Date: ?01/23/2014 ? Pt. Type: Inpatient Tape: ? Referring: Lee Kincaid ([id number]) Referring: ANNALISA Senior Corporate Accountant: Miguel Beverly Diagnosis:CPT Code(s): ??Echo Full (61709), ??Spectral Doppler (47327), Color Doppler (78225), Indication(s): ??Aortic stenosis Rhythm: Sinus HR ?BP [...] ? Mid-Inferior ?Hypokinetic ? Mid-Inferoseptal ?Hypokinetic ? Max-Septal ? Hypokinetic ? Max-Anterior ? Hypokinetic ? Max-Lateral ?Hypokinetic ? Max-Inferior ? Hypokinetic ? Max-Tip ?Hypokinetic ? Chambers ?Value ?Units (Range) ? [...] Patient: ANDREW Mejias (Age): 1955(58) Med Rec#: [id number] Sex: F Site Loc: [facility] Ht / Wt: 158(cm)/93(kg) Pt. Loc: Adult Floor BSA: 2.02 Study Date: 01/23/2014 Pt. Type: Inpatient Tape: Referring: Lee Kincaid ([id number]) Referring: ANNALISA Senior Corporate Accountant: Miguel Beverly Diagnosis:CPT Code(s): Echo Full (86825), Spectral Doppler (39890), Color Doppler (68799), Indication(s): Aortic stenosis Rhythm: Sinus HR BP [...] Hypokinetic Mid-Posterolateral Hypokinetic Mid-Inferior Hypokinetic Mid-Inferoseptal Hypokinetic Max-Septal Hypokinetic Max-Anterior Hypokinetic Max-Lateral Hypokinetic Max-Inferior Hypokinetic Max-Tip Hypokinetic Chambers Value Units (Range) IVSd 2D [...] RN) documented in this encounter Care Teams Plastic Surgery Specialist Relationship Specialty Start Date End Date Danni Laird APRN [address] [place] [address] PCP - General 01/23/14 11/11/14 documented as of this encounter
--- OUTSIDE RECORDS SUMMARY | 2024-07-13 14:14 | XMS_ITS | Encounter Summary ---
Author Organization [facility] Address [facility] [place] [address] Care Team Providers Care Felt Pad Cutter Name Role Phone Deborah Quiroga APRN Primary Care Provider [phone] Reason for Visit * Reason Comments Schedule Office Case * Consultation (Routine) - Closed Specialty Diagnoses / Procedures Referred By Contac t Referred To Contact Hematology and Oncology Diagnoses Leukopenia Neutropenia LEUKOPENIA W/NEUTROPENIA Procedures TC PEGFILGRASTIM, 6MG, INJECTION LEUKOPENIA W/NEUTROPENIA Alirio Esparza MD [facility] [place] [address] Mario Alberto Ramos Jr., MD [facility] [address] [place] [address] Referral ID Status Reason Start Date Expiration Date V isits Requested Visits Authorized [id number] Closed Consult, Test & Treat 07/17/2016 07/17/2017 1 1 Encounter Details Date Type Department Care Team (Late st Contact Info) Description 06/09/2016 3:00 PM EST Office Visit [place] [address] Mario Alberto Ramos Jr., MD [facility] HEMATOLOGY [place] [address] Cyclical neutropenia Social History Tobacco Use Types [...] 06/09/2016 3:00 PM EST Hematology Outpatient Clinic [facility] Hematology Outpatient Consult Note CC: 60 year [...] Unknown See Comment Flow Cytometry Report Unknown [id number] ... HematoPathology: Flow Cytometry DIAGNOSIS 1. No [...] 11/02/2024 12:00 PM EDT [place] [address] 11/02/2024 1:00 PM EDT [place] [address] Magdalena Peralta MD [facility] [place] [address] 03/01/2025 4:15 PM EDT Office Visit Dermatology at [place] [address] [place] [address] Marek Bonilla MD [address] [place] [address] documented as of this encounter Procedures Procedure [...] (06/09/2016 4:53 PM EST) Flow Cytometry Report [id number] ?Location: The signing pathologist has (i) examined [...] high complexity clinical laboratory testing. SPECIMEN PROCESSING [id number] Cells for immunophenotypic analysis were derived from [...] MD PATHOLOGY/CYTOLOGY O RDERABLES Performing Organization Address [facility]/ZIP Co de Phone Number [facility] [place] [address] * Scan, Peripheral Blood (06/09/2016 4:53 PM EST) Pathologist [facility] Plat estimate Normal [facility] RBC Morphology Normal [facility] Blood specimen (specimen) 06/09/2016 4:53 PM EST 06/09/2016 5:00 PM EST Narrative Resulting Agency Comment Spec In Lab Mario Alberto Ramos Jr., MD HEMATOLOGY ORDERABLE S Performing Organization Address [facility] Co de Phone Number [facility] [place] [address] * (ABNORMAL) Differential, Automated (06/09/2016 4:53 PM EST) [facility] Neutrophil % 27.7 % [facility] Neutrophil Absolute 0.48(Crit ical) 1.70 - 6.10 x10(3)/mc L [facility] Comment: Matches Previous Results.. This result has been called to NOT CALLED by Jesusita Argueta on 06 09 2016 at 1817, and has not been read back. MATCHES PREVIOUS RESULTS Lymph % 57.2 % [facility] Lymphocytes Abs 1.0 0.9 - 3.2 x10(3)/mc L [facility] Monocyte % 13.3 % [facility] Monocyte Abs 0.2(L) 0.3 - 0.9 x10(3)/[facility] LABORATORY Eos % 0.6 % [facility] Eosinophils Abs 0.0 0.0 - 0.4 x10(3)/[facility] LABORATORY Basophil % 1.2 % [facility] Baso Absolute 0.0 0.0 - 0.1 x10(3)/[facility] [...] Immature Gran Absolute 0.00 0.00 - 0.04 x10(3)/[facility] Blood specimen (specimen) 06/09/2016 4:53 PM EST 06/09/2016 5:00 PM EST Narrative Resulting Agency Comment Spec In Lab Mario Alberto Ramos Jr., MD HEMATOLOGY ORDERABLE S Performing Organization Address City/State/[facility] Co de Phone Number [facility] [place] [address] * (ABNORMAL) Hemogram (06/09/2016 4:53 PM EST) White Blood Cell 1.7(Criti gabrielle) 4.0 - 9.5 x10(3)/[facility] Red Blood Cell 3.92(L) 4.00 - 5.21 x10(6)/[facility] Hemoglobin 12.4 11.7 - 15.5 gm/dL [...] MD HEMATOLOGY ORDERABLE S Performing Organization Address City/[facility]/[place] [address] * Immunophenotyping Flow Cytometry (06/09/2016 4:53 PM EST) Immunophenotyping Flow See Comment [facility] Comment: When completed by the Pathologist, the Flow Cytometry Report ([id number]) will display under the Pathology Results section within [facility]. Specimen of unknown material (specimen) 06/09/2016 4:53 PM EST 06/09/2016 5:00 PM EST Narrative Resulting Agency Comment Spec In Lab Mario Alberto Ramos Jr., MD HEMATOLOGY ORDERABLE S [facility] [place] [address] documented in this encounter Visit Diagnoses Diagnosis Cyclical neutropenia Cyclic neutropenia documented in this encounter Care Teams Felt Pad Cutter Relationship Specialty Start Date End Date Deborah Quiroga, PSYCHOLOGICAL ANTHROPOLOGIST PCP - General Family Medicine 03/24/16 02/04/23 documented as of this encounter
--- OUTSIDE RECORDS SUMMARY | 2024-07-13 14:14 | XMS_ITS | Encounter Summary ---
Author Organization [facility] [place] [address] Care Team Providers Care Wharfinger Chief Name Role Phone Eitan Danni OSBORN Primary Care Provider Encounter Details Date Type Department Care Team (Late st Contact Info) Description 01/23/2014 9:25 AM EDT - 01/23/2014 10:25 AM EDT [place] [address] Alan Jacobson MD [facility] [place] [address] CARDIAC CATHETERIZATION Social History Tobacco Use Types [...] by your doctor, do not take any bsjg-nla-kfaugxz medicines or herbal preparations without first discussing this with your doctor or pharmacist. There is the possibility of side effect and interactions when these are combined. Follow up Care Who to Call with Questions or Problems If there are any questions or problems that you think might be related to your cardiac cath or angioplasty, contact the cyber systems engineer flotation tender by calling [facility] at . documented in this encounter [...] 11/02/2024 12:00 PM EDT Appointment [place] [address] 11/02/2024 1:00 PM EDT Office Visit [place] [address] Magdalena Peralta MD [facility] [place] [address] 03/01/2025 4:15 PM EDT Office Visit Dermatology at [place] [address] [facility] [place] [address] Marek Bonilla MD [address] [facility] [place] [address] documented as of this encounter Procedures Procedure Name Priority Date/Time Associated Diagnosis Comments ECHOCARDIOGRAM TRANSTHORACIC Routine 01/23/2014 3:17 PM EDT SOB (shortness of breath) documented in this encounter Results * Echocardiogram Transthoracic(Leb) (01/23/2014 3:17 PM EDT) Pathologist [facility] EF 50 HEARTprofectus health research SYSTEM Anatomical Region Laterality Modality Other 01/23/2014 Narrative 01/23/2014 4:35 PM EDT Procedure: ? Transthoracic Echocardiogram Patient: ? ANDREW ONESIMO M ?(Age): 1955(58) Med Rec#: ?[id number] ? Sex: ?F ? Site Loc: ?[facility] ? Ht / Wt: ??158(cm)/93(kg) Pt. Loc: ? Adult Floor ?BSA: ?2.02 Study Date: ?01/23/2014 ? Pt. Type: Inpatient Tape: ? Referring: Lee Kincaid ([id number]) Referring: ANNALISA Creative Services Designer: Miguel Beverly Diagnosis:CPT Code(s): ??Echo Full (85297), ??Spectral Doppler (15696), Color Doppler (18259), Indication(s): ??Aortic stenosis Rhythm: Sinus HR ?BP [...] ? Mid-Inferior ?Hypokinetic ? Mid-Inferoseptal ?Hypokinetic ? [place]-Septal ? Hypokinetic ? [place]-Anterior ? Hypokinetic ? [place]-Lateral ?Hypokinetic ? [place]-Inferior ? Hypokinetic ? [place]-Tip ?Hypokinetic ? Chambers ?Value ?Units (Range) [...] 01/23/2014 16:34:37 Images reviewed and interpretation verified [facility] Cardiac Ultrasound Laboratory Procedure Note Lee Kincaid MD - 01/23/2014 Procedure: Transthoracic Echocardiogram Patient: ANDREW Mejias (Age): 1955(58) Med Rec#: [id number] Sex: F Site Loc: [facility] Ht / Wt: 158(cm)/93(kg) Pt. Loc: Adult Floor BSA: 2.02 Study Date: 01/23/2014 Pt. Type: Inpatient Tape: Referring: Lee Kincaid ([id number]) Referring: ANNALISA Creative Services Designer: Miguel Beverly Diagnosis:CPT Code(s): Echo Full (32480), Spectral Doppler (57978), Color Doppler (04618), Indication(s): Aortic stenosis Rhythm: Sinus HR BP [...] Hypokinetic Mid-Posterolateral Hypokinetic Mid-Inferior Hypokinetic Mid-Inferoseptal Hypokinetic [place]-Septal Hypokinetic [place]-Anterior Hypokinetic [place]-Lateral Hypokinetic [place]-Inferior Hypokinetic [place]-Tip Hypokinetic Chambers Value Units (Range) IVSd [...] 01/23/2014 16:34:37 Images reviewed and interpretation verified [facility] Cardiac Ultrasound Laboratory Lee Kincaid MD [...] er: Nitesh Stern RN)[id number] (Given - Provider: iNtesh Stern RN) fentaNYL 50mcg/mL injection (CANCELED) ONCE [...] RN) documented in this encounter Care Teams Wharfinger Chief Relationship Specialty Start Date End Date Danni Laird APRN [address] [place] [address] PCP - General 01/23/14 11/11/14 documented as of this encounter
--- OUTSIDE RECORDS SUMMARY | 2024-07-13 14:14 | XMS_ITS | Encounter Summary ---
Author Organization [facility] Address [facility] [place] [address] Care Team Providers Care Retail Leader Name Role Phone Deborah Quiroga ANURAG Primary Care Provider [phone]- [phone] Encounter Details Date Type Department Care Team (Late st Contact Info) Description 06/16/2016 Orders Only Hematology [place] [address] Nitesh Pina Jr., MD [facility] [address] [place]AT[place] [address] Cyclical neutropenia Social History Tobacco Use Types [...] 12:00 PM EDT Appointment [place] [address] 11/02/2024 1:00 PM EDT Office [place] [address] Magdalena Peralta MD [facility] [address] RHEUMATOLOGY DEPT [place], [place] [address] 03/01/2025 4:15 PM EDT Office Visit Dermatology at [place] [address] [place] [address] Marek Bonilla MD [address], [place] [address] documented as of this encounter Visit Diagnoses Diagnosis Cyclical neutropenia Cyclic neutropenia documented in this encounter Care Teams Retail Leader Relationship Specialty Start Date End Date Deborah Quiroga, INFORMATION SYSTEMS SPECIALIST PCP - General Family Medicine 03/24/16 02/04/23 documented as of this encounter
--- OUTSIDE RECORDS SUMMARY | 2024-07-13 14:14 | XMS_ITS | Encounter Summary ---
Author Organization [facility] Address [facility] [place] [address] Care Team Providers Care Manager Multicultural Name Role Phone Junaid, Deborah Shields APRN Primary Care Provider [phone] Reason for Visit * Auth/Cert Specialty Diagnoses / Procedures Referred By Crispin t Referred To Contact Diagnoses AVS Procedures CARDIAC CATHETERIZATION Referral ID Status Reason Start Date Expiration Date Visits Re quested Visits Authorized [id number] 1 1 Encounter Details Date Type Department Care Team (Late st Contact Info) Description 06/03/2016 7:30 AM EDT - 06/03/2016 8:30 AM EDT Surgery [place] [phone] Mario Alberto Escobedo MD [facility] [place] [address] CARDIAC CATHETERIZATION Social History Tobacco Use Types [...] by your doctor, do not take any iffz-mxd-tfwclda medicinesor herbal preparations without first discussing this with your doctor or pharmacist. There is the possibility of side effects and interactions when these are combined. Follow Up Care Who to call with questions or problems If there are any questions or problems that you think might be related to your cardiac cath or angioplasty, contact the supervisor uranium processing production assembly operator by calling [facility] . * Patient Instructions* Felicia Corrigan - 06/03/2016 9:33 AM EDT Cardiology Instructions Call your doctor if: Chest pain, dyspnea, pain or swelling in legs occurs. If you have non-emergent questions between now and the time of your follow up appointments: -During 8am-5pm Wednesday through Wednesday call [phone] to speak with a nurse in the cardiology clinic -All other times call [phone] and ask to speak to the extension service advisor production assembly operator. MEDICATIONS - restart your spironolactone, discontinue prior [...] Appointments: Primary care provider: Cardiology: Deborah Hahn, CORRIDOR REDEVELOPMENT MANAGER [phone] Follow up as planned or as needed. Dr. Esparza [phone] Other follow-up appointment: Hematology - Dr. Mario [...] PM EDT Appoint[place] [address] 11/02/2024 1:00 PM EDT Office [place] [address] Magdalena Peralta MD [facility] [place] [address] 03/01/2025 4:15 PM EDT Office Visit Dermatology at [place] [address] [place] [address] Marek Bonilla MD [address], [place] [address] documented as of this encounter Procedures Procedure [...] Escobedo MD CHEMISTRY ORDERABLES Performing Organization Address City/[facility]/ZIP Co de Phone Number [facility] [place] [address] * Methylmalonic acid, serum (06/03/2016 11:45 AM EDT) Methylmalonic Acid (NOVEMBER) 0.21 <=0.40 nmol/mL [facility] Comment: Test Performed by: [address] [address] Natural Resources Technician: Raymond Chaudhry II, M.D., Ph.D. Blood specimen (specimen) 06/03/2016 11:45 AM EDT 06/03/2016 1:57 PM EDT Narrative Resulting Agency Comment Spec In Lab Mario Alberto Escobedo MD LAB SEND OUT ORDERAB LES Performing Organization Address City/[facility]/ZIP Co de Phone Number [facility] [place] [address] * Granulocyte Antibody (06/03/2016 11:45 AM EDT) Pathologist [facility] Granulocyte Ab (MAY) Negative Not Applicable [facility] Comment: ADDITIONAL INFORMATION Method: Immunofluorescent Assay Performing Laboratory CLIA# [id number] This test was developed and its performance characteristics determined by [facility] in a manner consistent with CLIA requirements. This test has not been cleared or approved by the U.S. Food and Drug Administration. Test Performed by: [place] [address] Natural Resources Technician: Raymond Chaudhry II, M.D., Ph.D. Blood specimen (specimen) 06/03/2016 11:45 AM EDT 06/03/2016 1:57 PM EDT Narrative Resulting Agency Comment Spec In Lab Mario Alberto Escobedo MD LAB SEND OUT ORDERAB LES Performing Organization Address City/[facility]/ZIP Co de Phone Number [facility] [place] [address] * TSH (06/03/2016 11:45 AM EDT) Pathologist [facility] Thyroid Stimulating Hormone 2.18 0.27 - 4.20 mcIU/mL [facility] Blood specimen (specimen) 06/03/2016 11:45 AM EDT 06/03/2016 12:11 PM EDT Narrative Resulting Agency Comment Spec In Lab Mario Alberto Escobedo MD CHEMISTRY ORDERABLES Performing Organization Address City/[facility]/ZIP Co de Phone Number [facility] [place] [address] * Homocysteine Total, Plasma (06/03/2016 11:45 AM EDT) Homocystine 9 <=15 mcmol/L [facility] Blood specimen (specimen) 06/03/2016 11:45 AM EDT 06/03/2016 12:11 PM EDT Narrative Resulting Agency Comment Spec In Lab Mario Alberto Escobedo MD CHEMISTRY ORDERABLES Performing Organization Address City/[facility]/ZIP Co de Phone Number [facility] [place] [address] * Folate, serum (06/03/2016 11:45 AM EDT) Folate >20.0 4.8 - 24.2 ng/mL [facility] Blood specimen (specimen) 06/03/2016 11:45 AM EDT 06/03/2016 12:04 PM EDT Narrative Resulting Agency Comment Spec In Lab Mario Alberto Escobedo MD CHEMISTRY ORDERABLES Performing Organization Address [facility] Co de Phone Number [facility] [place] [address] * (ABNORMAL) Sedimentation rate (06/03/2016 11:45 AM EDT) Sedimentation Rate Automated 41(H) 0 - 20 mm/hr [facility] Blood specimen (specimen) 06/03/2016 11:45 AM EDT 06/03/2016 12:04 PM EDT Narrative Resulting Agency Comment Spec In Lab Mario Alberto Escobedo MD HEMATOLOGY ORDERABLE S Performing Organization Address City/[facility]/ZIP Co de Phone Number [facility] [place] [address] * Lactate Dehydrogenase (06/03/2016 11:45 AM EDT) Lactate Dehydrogenase 164 110 - 220 unit/L [facility] Blood specimen (specimen) 06/03/2016 11:45 AM EDT 06/03/2016 12:11 PM EDT Narrative Resulting Agency Comment Spec In Lab Mario Alberto Escobedo MD CHEMISTRY ORDERABLES Performing Organization Address City/[facility]/ZIP Co de Phone Number [facility] [place] [address] * Comprehensive metabolic panel (non-fasting) (06/03/2016 11:45 AM EDT) Glucose 90 65 - 199 mg/dL [facility] Comment:Diabetes: >=200 mg/d L plus symptoms Blood Urea Nitrogen 11 8 - 18 mg/dL [facility] Creatinine 0.83 0.70 - 1.20 mg/dL [facility] Comment: Please note that the pediatric reference intervals supplied above were not validated at [facility]. Results from pediatric patients should be interpreted [...] the following links into your internet browser. [email or web address] Blood specimen (specimen) 06/03/2016 11:45 AM EDT 06/03/2016 12:11 PM EDT Narrative Resulting Agency Comment Spec In Lab Mario Alberto Escobedo MD CHEMISTRY ORDERABLES Performing Organization Address City/State/[facility] Co de Phone Number [facility] [place] [address] documented in this encounter Visit Diagnoses Diagnosis [...] documented in this encounter Care Teams Manager Multicultural Relationship Specialty Start Date End Date Deborah Quiroga, CORRIDOR REDEVELOPMENT MANAGER PCP - General Family Medicine 03/24/16 02/04/23 documented as of this encounter
--- OUTSIDE RECORDS SUMMARY | 2024-07-13 14:14 | XMS_ITS | Encounter Summary ---
Author Organization [facility] Address [facility] [place] [address] Care Team Providers Care Repairer Hairspring Name Role Phone Ashley Quirogan Cornelius ANURAG Primary Care Provider [phone] Encounter Details Date Type Department Care Team (Late st Contact Info) Description 07/13/2016 External Results Medical Records [place] [phone] Provider, Scanning Social History Tobacco Use Types [...] PM EDT Appointment Pulmonology at [place] [phone] 11/02/2024 1:00 PM EDT Office [place] [address] Magdalena Peralta MD [facility] RHEUMATOLOGY DEPT [place] [phone] 03/01/2025 4:15 PM EDT Office Visit Dermatology at [place] [address] [place] [address] Marek Bonilla MD [address], [place] [address] documented as of this encounter Procedures Procedure Name Priority Date/Time Associated Diagnosis Comments SURGICAL PATHOLOGY SCAN Routine 07/13/2016 documented in this encounter Results * Scan Doc: Surgical Pathology (07/13/2016) Nitesh Pina Jr., MD MEDIA MGR SCAN EXT O RDR/RSLT documented in this encounter Visit Diagnoses Not on filedocumented in this encounter Care Teams Repairer Hairspring Relationship Specialty Start Date End Date Deboarh Quiroga APRN PCP - General Family Medicine 03/24/16 02/04/23 documented as of this encounter
--- OUTSIDE RECORDS SUMMARY | 2024-07-13 14:14 | XMS_ITS | Encounter Summary ---
[place] [address] Care Team Providers Care Stitch Marker Name Role Phone Deborah Quiroga ANURAG Primary Care Provider [phone] Reason for Visit * Reason Onset Date Comments Medical Care Coordination 07/31/2016 Encounter Details Date Type Department Care Team (Late st Contact Info) Description 07/31/2016 Telephone Hematology [place] [address] Alexandrea Greenwood RN Medical Care Coordination Social [...] on 08/04/15, RN faxed lab req to [phone] at Aydee's request. RN instructed pt on Dr. Borjas's direction above. Pt verbalized understanding. documented in this encounter Plan of Treatment Upcoming Encounters Date Type Department Care Team (Late st Contact Info) Description 11/02/2024 12:00 PM EDT [place]oint[place] [address] 11/02/2024 1:00 PM EDT Office [place] [address] Magdalena Peralta MD [facility] [place] [address] 03/01/2025 4:15 PM EDT Office Visit Dermatology at [place] [address] [place] [address] Marek Bonilla MD [address], [address] [place] [address] documented as of this encounter Visit Diagnoses Not on filedocumented in this encounter Care Teams Stitch Marker Relationship Specialty Start Date End Date Deborah Quiroga APRN PCP - General Family Medicine 03/24/16 02/04/23 documented as of this encounter
--- OUTSIDE RECORDS SUMMARY | 2024-07-13 14:14 | XMS_ITS | Encounter Summary ---
[place] [address] Care Team Providers Care Unit Reactor Operator Name Role Phone Ashley Quirogazac Shields APRN Primary Care Provider [phone]- [phone] Encounter Details Date Type Department Care Team (Late st Contact Info) Description 07/03/2016 External Results Hematology [place] [address] Matthew Cervantes, DO [address] [place] [address] Social History Tobacco Use Types Packs/Day Years [...] 11/02/2024 12:00 PM EDT Appointment [place] [address] 11/02/2024 1:00 PM EDT Office [place] [address] Magdalena Peralta MD [facility] [place] [address] 03/01/2025 4:15 PM EDT Office Visit Dermatology at [place] [address] [place] [address] Marek Bonilla MD [address], [address] [address] documented as of this encounter Procedures Procedure Name Priority Date/Time Associated Diagnosis Comments BONE MARROW ASPIRATION PERFO RMED WITH BONE MARRROW BIOPSY Routine 06/28/2016 documented in this encounter Results * BONE MARROW ASPIRATION PREFORMED WITH BONE MARRROW BIOPSY (06/28/2016) Matthew Cervantes DO GENERAL SURGI DANIEL ORDERABLES documented in this encounter Visit Diagnoses Not on filedocumented in this encounter Care Teams Unit Reactor Operator Relationship Specialty Start Date End Date Deborah Quiroga, ANURAG PCP - General Family Medicine 03/24/16 02/04/23 documented as of this encounter
--- OUTSIDE RECORDS SUMMARY | 2024-07-13 14:14 | XMS_ITS | Encounter Summary ---
Author Organization [facility] [place] [address] Care Team Providers Care Manufacturing Teacher Name Role Phone JonathanDanni Leija ANURAG Primary Care Provider [phone]- [phone] Encounter Details Date Type Department Care Team (Late st Contact Info) Description 01/23/2014 Orders Only Cardiology at [address] [address] Lee Kincaid MD [facility] [place] [address] SOB (shortness of breath) (Primary Dx) Social [...] PM EDT Appointment [place] [address] 11/02/2024 1:00 PM EDT Office [place] [address] Magdalena Peralta MD [facility] [address] 03/01/2025 4:15 PM EDT Office Visit Dermatology at [place] [address] [facility] [place] [address] Marek Bonilla MD [address], [address] [address] documented as of this encounter Results * Echocardiogram Transthoracic(Leb) (01/23/2014 3:17 PM EDT) EF 50 HEARTLevel SYSTEM Anatomical Region Laterality Modality Other 01/23/2014 Narrative 01/23/2014 4:35 PM EDT Procedure: ? Transthoracic Echocardiogram Patient: ? ANDREW LOBOOUISE M ?(Age): 1955(58) Med Rec#: ?[id number] ? Sex: ?F ? [facility] Loc[facility] [place] ? Ht / Wt: ??158(cm)/93(kg) Pt. Loc: ? Adult Floor ?BSA: ?2.02 Study Date: ?01/23/2014 ? Pt. Type: Inpatient Tape: ? Referring: Lee Kincaid ([id number]) Referring: ANNALISA Broadband Installer: Miguel Beverly Diagnosis:CPT Code(s): ??Echo Full (74644), ??Spectral Doppler (81504), Color Doppler (10673), Indication(s): ??Aortic stenosis Rhythm: Sinus HR ?BP [...] ? Mid-Inferior ?Hypokinetic ? Mid-Inferoseptal ?Hypokinetic ? [place]-Septal ? Hypokinetic ? [place]-Anterior ? Hypokinetic ? [place]-Lateral ?Hypokinetic ? [place]-Inferior ? Hypokinetic ? [place]-Tip ?Hypokinetic ? Chambers ?Value ?Units (Range) ? [...] Patient: ANDREW Mejias (Age): 1955(58) Med Rec#: [id number] Sex: F [place] Loc: [facility] Ht / Wt: 158(cm)/93(kg) Pt. Loc: Adult Floor BSA: 2.02 Study Date: 01/23/2014 Pt. Type: Inpatient Tape: Referring: Lee Kincaid ([id number]) Referring: ANNALISA Broadband Installer: Miguel Beverly Diagnosis:CPT Code(s): Echo Full (90883), Spectral Doppler (69679), Color Doppler (10605), Indication(s): Aortic stenosis Rhythm: Sinus HR BP [...] Hypokinetic Mid-Posterolateral Hypokinetic Mid-Inferior Hypokinetic Mid-Inferoseptal Hypokinetic [place]-Septal Hypokinetic [place]-Anterior Hypokinetic [place]-Lateral Hypokinetic [place]-Inferior Hypokinetic [place]-Tip Hypokinetic Chambers Value Units (Range) IVSd 2D [...] breath documented in this encounter Care Teams Manufacturing Teacher Relationship Specialty Start Date End Date Danni Laird APRN [address] [place] [address] PCP - General 6/24/14 4/12/15 documented as of this encounter
[2024-07-18 14:50] VITALS: BP 125/62; PULSE 87
[2024-08-01 14:25] VITALS: BP 132/67; PULSE 89
== END 2024-08-01 23:59 | disposition home or self-care (01) ==
LOC: CR 14:12
PROVIDERS: PCP Family Medicine; Visit Provider Internal Medicine Cardiovascular Disease
DX: R69 Illness, unspecified (principal)

== ENCOUNTER 2024-08-31 13:57 | Outpatient (RCR) | payer SELFPAY ==
[2024-08-02 00:27] VITALS: BP 115/53; PULSE 83
[2024-08-03 14:01] VITALS: BP 123/54; PULSE 78; O2SAT 93
[2024-08-08 14:15] VITALS: BP 130/66; PULSE 74
[2024-08-10 14:11] VITALS: BP 136/68; PULSE 75
[2024-08-15 14:21] VITALS: BP 126/60; PULSE 79
[2024-08-17 14:23] VITALS: BP 136/68; PULSE 91
[2024-08-22 14:22] VITALS: BP 120/61; PULSE 65
[2024-08-24 14:11] VITALS: BP 125/62; PULSE 75; O2SAT 97
[2024-08-29 14:48] VITALS: BP 109/63; PULSE 96
[2024-08-31 13:58] VITALS: BP 104/56; PULSE 68; O2SAT 98
== END 2024-09-01 23:59 | disposition home or self-care (01) ==
LOC: CR 13:57
PROVIDERS: PCP Family Medicine; Visit Provider Internal Medicine Cardiovascular Disease
DX: R69 Illness, unspecified (principal)

== ENCOUNTER 2024-09-26 14:02 | Outpatient (RCR) | payer SELFPAY ==
[2024-09-05 14:36] VITALS: BP 132/63; PULSE 85
[2024-09-12 14:09] VITALS: BP 140/65; PULSE 94
[2024-09-19 14:08] VITALS: BP 124/60; PULSE 61
[2024-09-21 14:35] VITALS: BP 121/69; PULSE 68
[2024-09-26 14:08] VITALS: BP 130/59; PULSE 92
== END 2024-09-29 23:59 | disposition home or self-care (01) ==
LOC: CR 14:02
PROVIDERS: PCP Family Medicine; Visit Provider Internal Medicine Cardiovascular Disease
DX: R69 Illness, unspecified (principal)

== ENCOUNTER 2024-10-26 14:23 | Outpatient (RCR) | payer SELFPAY ==
[2024-09-30 00:11] VITALS: BP 130/59; PULSE 92
[2024-10-03 14:30] VITALS: BP 118/61; PULSE 85
[2024-10-05 14:01] VITALS: BP 120/62; PULSE 86
[2024-10-12 14:00] VITALS: BP 120/59; PULSE 78
[2024-10-17 14:21] VITALS: BP 120/64; PULSE 83
[2024-10-19 14:29] VITALS: BP 121/59; PULSE 81
[2024-10-24 14:26] VITALS: BP 124/69; PULSE 73
[2024-10-26 14:28] VITALS: BP 122/59; PULSE 91
== END 2024-10-30 23:59 | disposition home or self-care (01) ==
LOC: CR 14:23
PROVIDERS: PCP Family Medicine; Visit Provider Internal Medicine Cardiovascular Disease
DX: R69 Illness, unspecified (principal)

== ENCOUNTER → 2024-10-31 13:31 | Outpatient (BNVA) | payer MEDICARE, BC, SELFPAY | PROVIDERS: PCP Family Medicine; Visit Provider Internal Medicine Cardiovascular Disease | DX: Z95.3 Presence of xenogenic heart valve (principal); Z95.2 Presence of prosthetic heart valve | CPT/HCPCS: 99214 ==

== ENCOUNTER 2024-11-14 04:11 | Outpatient (CLI) | payer MEDICARE, BC, SELFPAY ==
--- NOTE | 2024-11-22 10:34 | W.PFT ---
Date of service: 11/14/24 Time of Service: 13:03 Pulmonary Function Test Result Indications: Mixed connective tissue disease Interpretation Spirometry: There is no airflow limitation. Diffusion Capacity: Normal diffusion Impression Normal spirometry and diffusion Clinical Correlation therefore is recommended.
== END 2024-11-14 04:12 | disposition home or self-care (01) ==
LOC: RT 04:11
PROVIDERS: PCP Family Medicine; Visit Provider Student in an Organized Health Care Education/Training Program
DX: M35.1 Other overlap syndromes (principal)
CPT/HCPCS: 94010; 94729

== ENCOUNTER 2024-11-28 15:12 | Outpatient (RCR) | payer SELFPAY ==
[2024-10-31 00:17] VITALS: BP 130/59; PULSE 92
[2024-10-31 14:29] VITALS: BP 138/60; PULSE 47
[2024-11-02 14:02] VITALS: BP 125/65; PULSE 78; O2SAT 98
[2024-11-07 14:01] VITALS: BP 121/61; PULSE 78; O2SAT 95
[2024-11-09 14:00] VITALS: BP 121/64; PULSE 83; O2SAT 97
[2024-11-14 14:09] VITALS: BP 117/60; PULSE 69
[2024-11-21 14:31] VITALS: BP 127/58; PULSE 83
[2024-11-28 15:14] VITALS: BP 122/61; PULSE 80
== END 2024-11-29 23:59 | disposition home or self-care (01) ==
LOC: CR 15:12
PROVIDERS: PCP Family Medicine; Visit Provider Internal Medicine Cardiovascular Disease
DX: R69 Illness, unspecified (principal)

== ENCOUNTER 2024-11-30 03:44 | Outpatient (CLI) | payer MEDICARE, BC, SELFPAY ==
[2024-11-30 15:36] LABS: ESR 21 mm/hr (0-30)
[2024-11-30 15:37] LABS: Abs Immature Grans 0.01 10^3/uL (0.0-0.06); Absolute Basophil Count 0.02 10^3/uL (0.0-0.2); Absolute Eosinophil Count 0.02 10^3/uL (0.0-0.7); Absolute Lymphocyte Count 0.68 10^3/uL (1.2-3.4); Absolute Monocyte Count 0.49 10^3/uL (0.1-0.8); Basophils % 0.6 %; Eosinophils % 0.6 %; HCT 32.5 % (36.0-46.0); Immature Grans % 0.3 %; Lymphocytes % 19.9 %; MCH 33.3 pg (27.0-33.0); MCHC 33.8 % (32.0-36.0); MCV 99 fL (80-95); MPV 8.9 fL (8.0-11.0); Monocytes % 14.3 %; Neutrophils % 64.3 %; Platelet Count 130 10^3/uL (130-400); RDW 11.9 % (11.7-14.6); RDW-SD 43.2 fL; WBC 3.42 10^3/uL (4.4-10.8)
[2024-11-30 15:39] LABS: Bilirubin Negative (Negative); Blood Trace-intact (Negative); Clarity Clear (Clear); Glucose Negative (Negative); Ketones Negative (Negative); Leukocyte Esterase Trace (Negative); Nitrite Negative (Negative); Specific Gravity >= 1.030 (1.005-1.025); Urobilinogen 0.2 mg/dL (Up to 0.2); pH 5.5 (5-8)
[2024-11-30 15:56] LABS: ALT 20 U/L (14-59); AST 26 U/L (15-37); Albumin 4.1 g/dL (3.4-5.0); Alkaline Phosphatase 88 U/L (46-116); Anion Gap 11.2 mmol/L (3-11); BUN 29 mg/dL (7-18); Bilirubin, Total 0.4 mg/dL (0.2-1.0); CO2 24.8 mmol/L (21.0-32.0); Chloride 107 mmol/L (98-107); Estimated GFR 60.98 (mL/min/1.73m2); Glucose 77 mg/dL (74-106); Potassium 4.8 mmol/L (3.5-5.1); Sodium 143 mmol/L (136-145); Total Protein 7.6 g/dL (6.4-8.2)
[2024-11-30 15:59] LABS: C-Reactive Protein < 0.50 mg/dL (<or=0.5)
[2024-11-30 16:24] LABS: COMMENT (LAB VIEW ONLY) 141.07 mg/dL; PROTEIN 46.7 mg/dL; Prot/Crea Ur Ratio 0.33
== END 2024-11-30 03:45 | disposition home or self-care (01) ==
LOC: LBO 03:45
PROVIDERS: PCP Family Medicine; Visit Provider Student in an Organized Health Care Education/Training Program
DX: M35.1 Other overlap syndromes (principal); Z79.899 Other long term (current) drug therapy
CPT/HCPCS: 36415; 80053; 85652; 81003; 82565; 84156; 85025; 86140

== ENCOUNTER 2024-12-26 17:06 | Outpatient (REF) | payer MEDICARE, BC, SELFPAY ==
[2024-12-26 21:41] LABS: Bilirubin Negative (Negative); Blood Trace-intact (Negative); Clarity Clear (Clear); Glucose Negative (Negative); Ketones Trace mg/dL (Negative); Leukocyte Esterase Trace (Negative); Nitrite Negative (Negative); Specific Gravity >= 1.030 (1.005-1.025); Urobilinogen 0.2 mg/dL (Up to 0.2); pH 5.5 (5-8)
[2024-12-26 21:47] LABS: Bacteria Many HPF (Negative); C & S Indicated? No/Sq. Contamination; Casts Negative LPF (Negative); Crystals Mod Calcium Oxalate HPF (Negative); Epithelial Cells Moderate HPF (Negative); Mucus Negative (Negative)
== END 2024-12-26 17:07 | disposition home or self-care (01) ==
LOC: NCHCN 17:06
PROVIDERS: PCP Family Medicine; Visit Provider Family Medicine
DX: R31.9 Hematuria, unspecified (principal)
CPT/HCPCS: 81003; 81015

== ENCOUNTER 2024-12-27 13:30 | Outpatient (REF) | payer MEDICARE, BC, SELFPAY | END 2024-12-28 14:16 | disposition home or self-care (01) | LOC: NCHCN 13:30 | PROVIDERS: PCP Family Medicine; Visit Provider Family Medicine | DX: R19.5 Other fecal abnormalities (principal) | CPT/HCPCS: 87015; 87177; 87209; 87269; 87272 ==

== ENCOUNTER 2024-12-28 14:00 | Outpatient (RCR) | payer SELFPAY ==
[2024-11-30 00:07] VITALS: BP 130/59; PULSE 92
[2024-11-30 14:28] VITALS: BP 129/64; PULSE 72
[2024-12-05 15:32] VITALS: BP 127/62; PULSE 79
[2024-12-07 14:26] VITALS: BP 138/63; PULSE 79
[2024-12-12 14:31] VITALS: BP 136/68; PULSE 73
[2024-12-14 14:09] VITALS: BP 127/67; PULSE 76
[2024-12-19 14:20] VITALS: BP 116/59; PULSE 76
[2024-12-21 14:53] VITALS: BP 119/58; PULSE 86
[2024-12-26 14:22] VITALS: BP 122/78; PULSE 77
[2024-12-28 15:40] VITALS: BP 121/55; PULSE 83
== END 2024-12-30 23:59 | disposition home or self-care (01) ==
LOC: CR 14:00
PROVIDERS: PCP Family Medicine; Visit Provider Internal Medicine Cardiovascular Disease
DX: R69 Illness, unspecified (principal)

== ENCOUNTER 2025-01-01 16:02 | Outpatient (REF) | payer MEDICARE, BC, SELFPAY ==
[2025-01-01 16:56] LABS: C Diff PCR Negative (Negative); EPI 027-NAP1-B1 PRESUMPTIVE NEGATIVE
[2025-01-01 21:35] LABS: Bilirubin Negative (Negative); Blood Negative (Negative); Clarity Clear (Clear); Glucose Negative (Negative); Ketones Trace mg/dL (Negative); Leukocyte Esterase Trace (Negative); Nitrite Negative (Negative); Specific Gravity 1.025 (1.005-1.025); Urobilinogen 0.2 mg/dL (Up to 0.2); pH 5.5 (5-8)
[2025-01-01 21:44] LABS: Epithelial Cells Few HPF (Negative); RBC Negative HPF (0-2)
[2025-01-01 21:45] LABS: Bacteria Few HPF (Negative); C & S Indicated? No; Casts 0-2 Hyaline LPF (Negative); Crystals Negative HPF (Negative); Mucus Negative (Negative); Other Cells Rare Renal (Negative)
[2025-01-04 17:19] LABS: Calprotectin <50.0 mcg/g
== END 2025-01-01 16:03 | disposition home or self-care (01) ==
LOC: NCHCN 16:02
PROVIDERS: PCP Family Medicine; Visit Provider Family Medicine
DX: R31.9 Hematuria, unspecified (principal); R19.5 Other fecal abnormalities
CPT/HCPCS: 87015; 87269; 87272; 81003; 81015; 83993

== ENCOUNTER 2025-01-25 14:00 | Outpatient (RCR) | payer SELFPAY ==
[2024-12-31 00:07] VITALS: BP 130/59; PULSE 92
[2025-01-02 14:32] VITALS: BP 119/53; PULSE 82
[2025-01-04 14:07] VITALS: BP 113/55; PULSE 91
[2025-01-09 14:29] VITALS: BP 107/59; PULSE 84
[2025-01-11 14:30] VITALS: BP 123/63; PULSE 81
[2025-01-16 14:56] VITALS: BP 146/66; PULSE 73
[2025-01-18 14:40] VITALS: BP 116/56; PULSE 85
[2025-01-23 14:44] VITALS: BP 116/58; PULSE 77
[2025-01-25 14:00] VITALS: BP 112/62; PULSE 78
== END 2025-01-29 23:59 | disposition home or self-care (01) ==
LOC: CR 14:00
PROVIDERS: PCP Family Medicine; Visit Provider Internal Medicine Cardiovascular Disease
DX: R69 Illness, unspecified (principal)

== ENCOUNTER 2025-02-08 11:51 | Outpatient (CLI) | payer MEDICARE, BC, SELFPAY ==
[2025-02-08] VITALS (13 sets, daily range): BP systolic 133–158; BP diastolic 53–83; PULSE 72–80; RESP 11–22; TEMP 36.2; O2SAT 97–100
--- NOTE | 2025-02-08 06:00 | DI.RAD_ITS ---
Exam(s) XR PAIN CLINIC FLUORO JOINT IN EXAM: XR PAIN CLINIC FLUORO JOINT IN CLINICAL HISTORY: Dx: Right Knee Osteoarthritis. TECHNIQUE: Fluoroscopy was provided for the referring physician for guidance with performing pain clinic injection procedure. COMPARISON: No exams were available for comparison FINDINGS: Please see procedure note for details. Fluoro time: 40.7 seconds RADIATION DOSE DELIVERED: gilmer Coronado=2.56 mGy
[2025-02-08] MEDS: Midazolam 2 MG/2 ML VIAL IVP (13:10)
[2025-02-08] MEDS: fentaNYL 100 MCG/2 ML VIAL IJ ×2 (13:10→13:25)
[2025-02-08] MEDS: Lactated Ringers 500 ML 30 ML IV (13:24)
[2025-02-08] MEDS: Lidocaine 2% Multi-Dose 20 ML VIAL IJ (13:46)
[2025-02-08] MEDS: Bupivacaine 0.5% Pres-Free 10 ML VIAL IJ (13:47)
[2025-02-08] MEDS: methylPREDNISolone ACETATE 40 MG/ML VIAL IJ (13:47)
--- NOTE | 2025-02-08 13:55 | PDOC.PAIN ---
Date of service: 02/08/25 Time of Service: 13:55 Pain Managment Procedure Note Procedure Note Procedure Note: PROCEDURE NOTE RIGHT GENICULAR NERVE RADIOFREQUENCY ABLATION Date of Service: February 08, 2025 Patient: Purnima Thacker Provider: Chandler Brooks DO, MPH Purnima Thacker has been [facility] Right genicular nerve radiofrequency ablation with the [employer] machine. Pre-operative diagnosis: Pain in right knee M25.561 Post-operative diagnosis: Same Pre-Procedure Pain: VAS=5-6/10 Comments: Previous genicular nerve blocks to the Right knee. PROCEDURE: Ablation of the: 1. Superolateral genicular branch from the vastus lateralis 2. Superomedial genicular branch from the vastus medialis 3. Inferomedial genicular branch from the saphenous nerve 4. Terminal branch of the nerve vastus intermedius Purnima was interviewed and the medical record reviewed. There were no medical, pharmacologic, radiographic or other structural contraindications to attempting fluoroscopically guided Right genicular nerve radiofrequency ablation. Risks and potential side effects as well as potential benefit of the procedure were reviewed with Purnima Thacker , and the patient's voiced concerns were addressed. After I believed that the patient was completely informed, the printed consent form was signed. Standard time-out procedure was performed. Purnima Thacker was brought into brought to the procedure room and placed on the fluoroscopy table in a comfortable supine position and automated blood pressure cuff and pulse oximeter applied. A grounding pad was placed on the right ankle. The place for needle placement was obtained by manual palpation with radiographic confirmation. The skin entry points for approaching Right superolateral genicular nerve, the superomedial genicular nerve, nerve of the vastus intermedius and the inferomedial genicular was identified under the most advantageous fluoroscopic view and marked. Following thorough Chlorhexadine preparation of the skin and draping, 1% lidocaine infiltration of the skin entry point and subcutaneous tissues was accomplished using a 1.5 25G needle. Next, the 17G 50 mm radiofrequency cannula needle with a 4mm active tip was advanced to os at the location of the specific nerve roots (4) using fluoroscopic guidance. Next, motor testing was performed and no abnormal findings were found. Next, 1 cc of 2% Lidocaine was injected at each site after negative aspiration. The lesion was then created with 80 degrees Celsius for 2 minutes and 30 seconds each. 1/4 cc of Depo-Medrol (40 mg/cc) was then injected at each site followed by 1 cc of 0.5% Bupivacaine as the needle was withdrawn. There was no unusual discomfort expressed by Purnima. The needles were withdrawn without difficulty. Purnima was observed and was without hemodynamic, neurologic, or allergic reactions.? Fluoroscopic images were digitally archived. Purnima's vital signs were stable throughout the procedure and were as recorded in the docflowsheet by the nursing staff. If given, dosages of intravenous drugs for anxiolysis and analgesia were documented in MAR. POST PROCEDURE EVALUATION: IMPRESSION: 1. Medication given is documented in the MAR 2. Follow up plan: Purnima to contact [facility] as needed. This procedure may be repeated if the patient achieves at least 50% improvement in pain and/or function for at least 6 months. 3. Estimated Blood Loss: <5ml 4. Fluoroscopy time: Documented in the EMR Follow up plans and appointments were discussed with Purnima. Post procedure instruction was given as documented in nursing documentation and having met discharge criteria, Purnima was [facility] from the [facility]. This advanced procedure uses cooled radiofrequency energy to safely target the sensory nerves responsible for sending pain signals.1 A radiofrequency generator transmits a small current of Radiofrequency energy through an insulated electrode, or probe, placed within tissue. Ionic heating, produced by the friction of charged molecules, thermally deactivates the nerves responsible for sending pain signals to the brain. Radiofrequency energy heats and cools the tissue at the site of pain. Unlike other Radiofrequency procedures, Coolief circulates water through the device while heating nervous tissue to create a larger treatment area, increasing the opportunity to help with pain. This combination targets the pain-transmitting nerves without excessive heating, leading to pain relief. COMMENTS: No apparent complications. Post-procedure pain: VAS= 0/10. Lucia WJ1, Moe SJ, Sean JG, Chino JG, Shon GRANDE, Park PH, Vijay JW. Radiofrequency treatment relieves chronic knee osteoarthritis pain: a double-blind randomized controlled trial. Pain. 2010;152(3):481-7. doi: 10.1016/j.pain.2010.09.029. Maile S1, Germain ON2, Kiara Y3, ?zl?lerden P2, Hernan U1, Satya ?m?rl? I. Which one is more effective for the clinical treatment of chronic pain in knee osteoarthritis: radiofrequency neurotomy of the genicular nerves or intra-articular injection? Int J Rheum Dis. 2016 Mar 13. I personally completed the entire procedure. CHANDLER BROOKS DO, MPH ABPM&R - Subspecialty board certification in Pain Medicine [facility] Coding Conscious Sedation used for procedure: Yes CPT Codes: Genicular 3-4 Nerve RFA - 69388T ([id number]~G) Additional Codes: Date of Service (72669) Date of service: 02/08/25 Diagnoses: Right knee osteoarthritis
[2025-02-08] MEDS: Nerve Block Tray 1 EACH MC (13:59)
== END 2025-02-08 11:52 | disposition home or self-care (01) ==
LOC: PC 11:53
PROVIDERS: PCP Family Medicine; Visit Provider Preventive Medicine Occupational Medicine
DX: M25.561 Pain in right knee (principal)
CPT/HCPCS: 64624; 77002; J0665; J1010; J2003; J2250; J3010

== ENCOUNTER 2025-03-01 14:00 | Outpatient (RCR) | payer SELFPAY ==
[2025-01-30 14:21] VITALS: BP 127/64; PULSE 64
[2025-02-01 14:36] VITALS: BP 112/54; PULSE 87; O2SAT 94
[2025-02-06 14:14] VITALS: BP 106/54; PULSE 93
[2025-02-13 14:16] VITALS: BP 140/72; PULSE 93
[2025-02-15 14:06] VITALS: BP 134/66; PULSE 82; O2SAT 95
[2025-02-20 14:18] VITALS: BP 125/62; PULSE 76
[2025-02-22 14:23] VITALS: BP 114/59; PULSE 83
[2025-02-27 14:50] VITALS: BP 120/65; PULSE 77
[2025-03-01 14:18] VITALS: BP 132/62; PULSE 73
== END 2025-03-01 23:59 | disposition home or self-care (01) ==
LOC: CR 14:00
PROVIDERS: PCP Family Medicine; Visit Provider Internal Medicine Cardiovascular Disease
DX: R69 Illness, unspecified (principal)

== ENCOUNTER 2025-03-29 14:00 | Outpatient (RCR) | payer SELFPAY ==
[2025-03-02 00:24] VITALS: BP 132/62; PULSE 73
[2025-03-06 14:17] VITALS: BP 126/64; PULSE 81
[2025-03-08 14:22] VITALS: BP 125/59; PULSE 78
[2025-03-20 14:23] VITALS: BP 127/70; PULSE 79
[2025-03-22 14:18] VITALS: BP 134/62; PULSE 78
[2025-03-27 14:29] VITALS: BP 123/68; PULSE 55
[2025-03-29 14:21] VITALS: BP 153/69; PULSE 94
== END 2025-04-01 23:59 | disposition home or self-care (01) ==
LOC: CR 14:00
PROVIDERS: PCP Family Medicine; Visit Provider Internal Medicine Cardiovascular Disease
DX: R69 Illness, unspecified (principal)

== ENCOUNTER 2025-04-24 00:47 | Outpatient (CLI) | payer BC, MEDICARE, SELFPAY ==
[2024-11-16 14:12] VITALS: BP 142/56; PULSE 75
[2024-11-23 14:19] VITALS: BP 132/59; PULSE 97
--- NOTE | 2025-04-24 13:00 | DI.US_ITS ---
APPROVED REPORT EXAM: Comprehensive 2D, Doppler, and color-flow Echocardiogram Patient Location: Out-Patient Lemon Grower: Ayleen Hopkins RDCS (AE) Indications: Recheck aortic valve gradient, H/O aortic valve replacement, TAVR Other Information Study Quality: Adequate Conclusion Normal left ventricular wall thickness and chamber size. Ejection fraction is 50%. There are no segmental wall motion abnormalities Normal right ventricular size and function Mildly dilated left atrium. Normal right atrial size Patient is status post TAVR. Mean gradient is 11 mmHg. There is no aortic regurgitation Mitral annular calcification. Moderate mitral regurgitation Estimated right ventricular systolic pressure is 16 mmHg Wall motion Left Ventricle The left ventricle is normal size. Left ventricular systolic function is borderline There is normal left ventricular wall thickness. There is global mild hypokinesis of the left ventricle. There is no ventricular septal defect visualized. LVEF is 50%. Right Ventricle The right ventricle is normal size. The right ventricular systolic function is normal. Atria Left atrium is mildly dilated. The right atrium size is normal. Atrial septal aneurysm is present. Aortic Valve Mean gradient is 11 mmHg No aortic regurgitation is present. TAVR aortic valve Mitral Valve mitral annular calcification. No evidence of mitral valve stenosis. Moderate mitral regurgitation. Tricuspid Valve The tricuspid valve is normal in structure. There is no tricuspid valve stenosis. Trace tricuspid regurgitation. The RVSP is 16.3 mmHg. Pulmonic Valve The pulmonary valve is normal in structure. There is no pulmonic valvular stenosis. There is no pulmonic valvular regurgitation. Great Vessels The aortic root is normal in size. Ascending aorta is not well visualized. Aortic arch is not well visualized. IVC is normal in size and collapses >50% with inspiration. Pericardium There is no pericardial effusion. 2D Dimensions IVSD d PLAX 1.00 cm F: 0.6-1.0 Ao Root d 2.15 cm F: 2.7 - 3.3 LVPW d PLAX 1.03 cm F: 0.6 - 1.0 LVID d PLAX 5.00 cm F: 3.8 - 5.2 LVDs 3.71 cm F: 2.2 - 3.5 LV EF Teichholz 50.4 % FS 25.74 % LV EDV (Teich) 118.0 mL LV ESV (Teich) 58.5 mL Auto EF LV EDV A4C 130.3 mL LV EDV A2C 127.1 mL LV EDV BP 128.6 mL LV ESV A4C 64.7 mL LV ESV A2C 63.9 mL LV ESV BP 63.9 mL LVEF(%) A4C 50.3 % LVEF(%) A2C 49.7 % LVEF(%) BP 50.3 % LV SV A4C 65.6 ml LV SV A2C 63.2 ml LV SV BP 64.8 ml LV CO A4C 4.2 L/min LV CO A2C 4.3 L/min LV CO BP 4.2 L/min HR A4C 63.27 BPM HR A2C 67.39 BPM LV EDV Index (BP) LA Volume LA Length A4C 5.4 cm LA Length A2C 5.2 cm LA Area A4C s 18.34 cm2 LA Area A2C s 22.03 cm2 LA Vol A4C A-L 52.75 mL LA Vol A2C A-L 79.37 mL LA Vol Biplane A-L 66.1 mL LA Vol/BSA A4C A-L LA Vol/BSA A2C A-L LA Vol/BSA BP A-L 35.5 mL/m2 LA Vol A4C MOD 47.1 mL LA Vol A2C MOD 73.5 mL LA Vol BP MOD 59.4 mL RA Volume RA Area A4C 14.8 cm2 RA ESV A4C (A-L) 40.7mL RA Vol/BSA A4C A-L RA Length A4C 4.6 cm RA ESV A4C (MOD) 37.2mL LV Diastology MV E' medial 0.067 (>0.07 m/s) MV E Vmax 0.71 (0.4-1.3 m/s) MV E/E' MED 10.62 (<14) MV A Vmax 0.95 (0.4-1.3 m/s) MV E' lateral 0.095 (>0.1 m/s) E/A Ratio 0.7 MV E/E' LAT 7.52 (<14) MV E' Average 0.081 m/s MV E/E'(average) 8.81 Aortic Valve AoV Vmax 2.13 m/s LVOT Vmax 1.15 m/s AoV Peak Grad 18.1 mmHg LVOT Peak Grad 5.3 mmHg AoV Area (Vmax) 1.65 cm2 LVOT VTI 0.239 m AoV VTI 0.459 m LVOT Mean Grad 3.3 mmHg AoV Mean Donal. 1.57 m/s LVOT SV 73.30 mL AoV Mean Grad 10.9 mmHg LVOT Diam s 1.95 cm AoV Area (VTI) 1.60 cm2 AV Regurg Peak Gr. 18.12 mmHg Velocity Ratio 0.54 Mitral Valve MV DT 241 (160-240 msec) MV Vmax TIPS 0.95 m/s MV Mean Grad 1.3 (<2mmHg) MV VTI 0.283 m Pulmonary Valve PV Vmax 1.06 (0.5-1.5 m/s) RVOT Vmax 0.68 m/s PV Peak Grad 4.5 mmHg RVOT Peak Gr. 1.8 mmHg PV Mean Donal 0.62 m/s RVOT VTI 0.132 m PV Mean Grad 1.9 mmHg RVOT Mean Gr. 1.1 mmHg Tricuspid Valve RA Pressure 3.00 mmHg TR Vmax 1.83 m/s TV S' 0.11 m/s TR Peak Grad 13.3 mmHg RVSP (TR) 16.3 mmHg
== END 2025-04-24 01:07 ==
PROVIDERS: PCP Family Medicine; Visit Provider Internal Medicine Cardiovascular Disease
DX: Z95.2 Presence of prosthetic heart valve (principal); Z95.3 Presence of xenogenic heart valve; I34.0 Nonrheumatic mitral (valve) insufficiency
CPT/HCPCS: 93306

== ENCOUNTER 2025-05-01 14:00 | Outpatient (RCR) | payer SELFPAY ==
[2025-04-03 14:16] VITALS: BP 149/79; PULSE 74
[2025-04-05 14:20] VITALS: BP 134/65; PULSE 81
[2025-04-10 14:31] VITALS: BP 124/73; PULSE 85
[2025-04-12 14:13] VITALS: BP 116/57; PULSE 77
[2025-04-17 14:12] VITALS: BP 119/62; PULSE 76
[2025-04-19 14:18] VITALS: BP 123/63; PULSE 81
[2025-04-24 14:32] VITALS: BP 126/68
[2025-04-26 14:42] VITALS: BP 148/74; PULSE 79
[2025-05-01 14:43] VITALS: BP 114/59; PULSE 75
== END 2025-05-01 23:59 | disposition home or self-care (01) ==
LOC: CR 14:00
PROVIDERS: PCP Family Medicine; Visit Provider Internal Medicine Cardiovascular Disease
DX: R69 Illness, unspecified (principal)

== ENCOUNTER → 2025-05-03 13:10 | Outpatient (BNVA) | payer MEDICARE, BC, SELFPAY | PROVIDERS: PCP Family Medicine; Visit Provider Internal Medicine Cardiovascular Disease | DX: Z95.3 Presence of xenogenic heart valve (principal); M17.11 Unilateral primary osteoarthritis, right knee | CPT/HCPCS: 99213 ==

== ENCOUNTER → 2025-05-08 14:57 | Outpatient (BNVA) | payer MEDICARE, BC, SELFPAY | PROVIDERS: PCP Family Medicine; Referring Provider Family Medicine; Visit Provider Nurse Practitioner Gerontology | DX: R31.0 Gross hematuria (principal); N39.46 Mixed incontinence; Z86.03 Personal history of neoplasm of uncertain behavior; N28.9 Disorder of kidney and ureter, unspecified | CPT/HCPCS: 99215; 81002 ==

== ENCOUNTER → 2025-05-28 14:53 | Outpatient (BNVA) | payer MEDICARE, BC, SELFPAY | PROVIDERS: PCP Family Medicine; Referring Provider Family Medicine; Visit Provider Student in an Organized Health Care Education/Training Program | DX: M17.11 Unilateral primary osteoarthritis, right knee (principal) | CPT/HCPCS: 99214 ==

== ENCOUNTER 2025-05-29 14:00 | Outpatient (RCR) | payer SELFPAY ==
[2025-05-03 14:33] VITALS: BP 125/53; PULSE 75
[2025-05-08 14:08] VITALS: BP 96/59; PULSE 86
[2025-05-15 14:31] VITALS: BP 118/54; PULSE 70
[2025-05-17 14:00] VITALS: BP 122/63; PULSE 87; O2SAT 98
[2025-05-22 14:57] VITALS: BP 115/54; PULSE 92
[2025-05-24 14:41] VITALS: BP 128/59; PULSE 78
[2025-05-29 14:31] VITALS: BP 139/64; PULSE 79
== END 2025-06-01 23:59 | disposition home or self-care (01) ==
LOC: CR 14:00
PROVIDERS: PCP Family Medicine; Visit Provider Internal Medicine Cardiovascular Disease
DX: R69 Illness, unspecified (principal)

== ENCOUNTER 2025-06-19 19:02 | Outpatient (REF) | payer MEDICARE, BC, SELFPAY ==
[2025-06-19 20:45] LABS: Abs Immature Grans 0.01 10^3/uL (0.0-0.06); HCT 29.9 % (36.0-46.0); HGB 10.1 g/dL (11.2-15.7); Immature Grans % 0.4 %; MCH 33.9 pg (27.0-33.0); MCHC 33.8 % (32.0-36.0); MCV 100 fL (80-95); MPV 9.4 fL (8.0-11.0); Platelet Count 156 10^3/uL (130-400); RBC 2.98 10^6/uL (3.93-5.22); RDW 12.0 % (11.7-14.6); RDW-SD 44.2 fL; WBC 2.75 10^3/uL (4.4-10.8)
[2025-06-19 21:02] LABS: Anion Gap 9.3 mmol/L (3-11); BUN 20 mg/dL (9-23); CO2 23.7 mmol/L (20.0-31.0); Calcium 9.6 mg/dL (8.3-10.6); Chloride 111 mmol/L (98-107); Glucose 114 mg/dL (74-106); Potassium 4.0 mmol/L (3.5-5.1); Sodium 144 mmol/L (136-145)
[2025-06-19 21:06] LABS: Hemoglobin A1C 5.6 % (<5.7)
[2025-06-21 14:12] VITALS: BP 119/58; PULSE 74
== END 2025-06-19 19:03 | disposition home or self-care (01) ==
LOC: NCHCN 19:02
PROVIDERS: PCP Family Medicine; Visit Provider Family Medicine
DX: D64.9 Anemia, unspecified (principal); R73.01 Impaired fasting glucose; I10 Essential (primary) hypertension
CPT/HCPCS: 80048; 83036; 85025

== ENCOUNTER 2025-06-26 14:00 | Outpatient (RCR) | payer SELFPAY ==
[2025-06-02 00:12] VITALS: BP 139/64; PULSE 79
[2025-06-05 14:34] VITALS: BP 127/63; PULSE 81
[2025-06-07 14:16] VITALS: BP 132/73; PULSE 70
[2025-06-12 14:29] VITALS: BP 154/59; PULSE 89
[2025-06-14 14:34] VITALS: BP 111/57; PULSE 86
[2025-06-26 14:18] VITALS: BP 123/72; PULSE 68
== END 2025-07-01 23:59 | disposition home or self-care (01) ==
LOC: CR 14:00
PROVIDERS: PCP Family Medicine; Visit Provider Internal Medicine Cardiovascular Disease
DX: R69 Illness, unspecified (principal)

== ENCOUNTER → 2025-07-10 00:33 | Outpatient (CLI) | payer MEDICARE, BC, SELFPAY ==
--- NOTE | 2025-07-10 | DI.US_ITS ---
Exam(s) US SOFT TISS ABD WALL/LOW BACK EXAM: US SOFT TISS ABD WALL/LOW BACK CLINICAL HISTORY: UMBILICAL HERNIA W/O OBSTRUCTION/GANGRENE, K42.9. TECHNIQUE: Ultrasound was performed using standard protocol. COMPARISON: CT CHEST ABD PELVIS WITH CONTRAST from 06/19/[address] CHEST PE CTA from 05/08/2023 FINDINGS: Sonographic assessment utilizing grayscale and color Doppler imaging was performed and targeted to the area of clinical concern. There is a fat containing umbilical hernia. There is no evidence of fluid or hyperemia. It measures 3.8 cm transverse by 3 cm AP by 4 6 cm cephalo caudad. The neck is measured at 3 cm. This appears to have enlarged when compared with the 2016 CT. IMPRESSION: Uncomplicated fat containing umbilical hernia. DATA REPOSITORY:
== END ==
LOC: DI 00:33
PROVIDERS: PCP Family Medicine; Visit Provider Family Medicine
DX: K42.9 Umbilical hernia without obstruction or gangrene (principal)
CPT/HCPCS: 76705

== ENCOUNTER → 2025-07-16 11:16 | Outpatient (BNVA) | payer MEDICARE, BC, SELFPAY | PROVIDERS: PCP Family Medicine; Referring Provider Family Medicine; Visit Provider Student in an Organized Health Care Education/Training Program | DX: K42.9 Umbilical hernia without obstruction or gangrene (principal); R11.2 Nausea with vomiting, unspecified; R19.7 Diarrhea, unspecified | CPT/HCPCS: 99214 ==

== ENCOUNTER 2025-07-31 14:00 | Outpatient (RCR) | payer SELFPAY ==
[2025-07-02 00:07] VITALS: BP 123/72; PULSE 68
[2025-07-05 14:09] VITALS: BP 122/74; PULSE 80
[2025-07-10 15:01] VITALS: BP 121/61; PULSE 86
[2025-07-12 14:42] VITALS: BP 121/62; PULSE 89
[2025-07-17 14:20] VITALS: BP 143/65; PULSE 70
[2025-07-24 14:19] VITALS: BP 113/56; PULSE 77
[2025-07-31 15:07] VITALS: BP 125/70; PULSE 62
== END 2025-08-01 23:59 | disposition home or self-care (01) ==
LOC: CR 14:00
PROVIDERS: PCP Family Medicine; Visit Provider Internal Medicine Cardiovascular Disease
DX: R69 Illness, unspecified (principal)